=== PATIENT | female | born 1965 | race Caucasian/White ===

== ENCOUNTER 2023-09-05 08:11 | Outpatient (OUT) | payer OTHER, SELFPAY ==
--- NOTE | 2023-09-05 | NM_ITS ---
Patient Name: EMIGDIO EIL MR#: [id number] : 1965 Exam Date: 09/05/2023 Ordering Doctor: MARI LOCKWOOD RADIOLOGY REPORT PROCEDURE: NM LEN PERF SPECT REST STR COMPARISON: None. INDICATIONS: CHEST PAIN, UNSPECIFIED TECHNIQUE: Exam Description: Stress/Rest two day protocol gated SPECT Rest Imagin.9 mCi Tc-99m Cardiolite IV on 09/06/2023 Stress Imaging 26.1 mCi Tc-99m Cardiolite IV on 09/05/2023 Exercise Protocol: 0.4 mg Lexiscan given IV Heart Rate (bpm): Rest: 74 Max: 101 PMHR: 62 Blood Pressure: Rest: 114/72 Max: 130/70 Symptoms: CHEST PAIN, SHORTNESS OF BREATH Rest and peak stress ECG findings were normal and the exercise portion of the study was normal per attending physician Dr. Alba . For more details please see separate cardiac stress test report. FINDINGS: QUALITY OF STUDY: Good. PERFUSION DEFECT: None. LOCATION: N/A SIZE: N/A. SEVERITY: N/A. TYPE: N/A. WALL MOTION: Normal. LV SIZE: Normal. 57 mL. TID / TCD: None; 1.1 LVEF: Normal. Calculated EF 84%. SUMMARY: Myocardial perfusion imaging study is NORMAL. CONCLUSION: 1. Normal myocardial profusion scan. No reversible ischemia 2. Normal exercise test Dictated by: Zach Mac MD on 09/07/2023 at 07:35 Approved by: Zach Mac MD on 09/07/2023 at 07:40
--- NOTE | 2023-09-05 | PCN_ITS ---
CARDIAC STRESS TEST Requesting Physician:? Raphael Lawrence NP and Paulo Turner M.D. Procedure Date:? 09/05/2023 LEXISCAN STUDY REASON FOR EVALUATION:? Shortness of breath. Patient was unable to walk and, therefore, the treadmill test was converted to a nuclear perfusion study.? Patient was noted to have a pacemaker.? At baseline, the EKG showed sinus rhythm with normal intervals with no evidence of any pacing.? Following Lexiscan infusion, no evidence of AV block was seen.? At baseline, the resting the heart rate 77 with a blood pressure of 130/72 mm/Hg.? Following infusion, the heart rate increased to 101, with a blood pressure of 130/70 mm/Hg.? INTERPRETATION: 1.? No evidence of ischemia noted on EKG.? 2.? Symptoms of shortness of breath and chest heaviness noted during the test. 3.? Nuclear perfusion study to be interpreted separately by Radiology team. SEBLE
[2023-09-05] MEDS: REGADENOSON 0.4 MG/5 ML SYRINGE IV (09:12)
== END 2023-09-05 08:12 | disposition home or self-care (01) ==
LOC: CARD 08:12
PROVIDERS: PCP Family Medicine; Visit Provider Nurse Practitioner
DX: R07.9 Chest pain, unspecified (principal); R94.31 Abnormal electrocardiogram [ECG] [EKG]
CPT/HCPCS: 78452; 93017; A9500; J2785

== ENCOUNTER 2023-09-06 14:52 | Outpatient (OUT) | payer OTHER, SELFPAY ==
--- NOTE | 2023-09-06 15:26 | CA_ITS ---
Patient Name: EMIGDIO ELI MR#: [id number] : 1965 Exam Date: 09/06/2023 Ordering Doctor: MARI LOCKWOOD ECHOCARDIOGRAM REPORT PROCEDURE: CA ECHO DOPPLER COMPLETE INDICATIONS: CHEST PAIN COMPARISON: None. DESCRIPTION: COMPLETE ECHOCARDIOGRAM Real-time transthoracic echocardiography with 2D, M-mode, spectral and color flow Doppler performed. QUALITY: Technical quality was good. LEFT VENTRICLE: Normal chamber size. Normal left ventricular wall thickness. LV EF: Global left ventricular systolic function is normal. Calculated left ventricular ejection fraction is 62%. DIASTOLIC: Normal diastolic function. ATRIAL SEPTUM: Inadequately visualized. LEFT ATRIUM: Normal chamber size. RIGHT ATRIUM: Normal chamber size. Pacer wire present. RIGHT VENTRICLE: Normal chamber size. Normal right ventricular systolic function. Pacer wire present. TRICUSPID VALVE: Normal mobility and thickness. Mild regurgitation. Mild pulmonary hypertension. RVSP 39mmHg MITRAL VALVE: Normal mobility and thickness. No evidence of mitral valve stenosis. There is no mitral annular calcification. No mitral regurgitation. AORTIC VALVE: Normal trileaflet appearance. No visible sclerosis. Normal leaflet mobility. No evidence of aortic valve stenosis. No aortic regurgitation. AORTIC ROOT: Normal diameter and appearance. PULMONIC VALVE: Normal thickness and mobility. No stenosis. No regurgitation. PERICARDIUM: No evidence of pericardial effusion. IVC: Collapses with inspirations. Normal size. CONCLUSION: 1. Global left ventricular systolic function is normal; visually estimated ejection fraction is 60 to 65% 2. Right ventricle is normal in size and systolic function 3. Normal diastolic function 4. Mild tricuspid regurgitation 5. Mild elevated right ventricular systolic pressure; RVSP 39 mmHg Adult Echocardiography Procedure Report Left Ventricle LVEDD (3.7 - 5.6 cm): 3.51 cm LVESD (2.2 - 4.0 cm): 2.52 cm LVIVS thickness (0.6 - 1.2 cm): 0.64 cm LVPW thickness (0.5 - 1.0 cm): 0.67 cm e': 0.13 m/s E - e': 5.58 LVOT Max Gradient: 6.37 mm[Hg] LVOT Area (cm2): 1.26 m/s Peak Velocity (LVOT): 1.26 m/s Mean Velocity (LVOT): 0.83 m/s LVOT Diameter 1.82 cm Left Ventricular Ejection Fraction: 61.66 % Left Atrium LA Volume Index (2D A2C): 27.29 ml/m2 Left Atrium Systolic Dimension: 2.99 cm Mitral Valve MV E to A Ratio: 1, 0.95 Mitral Valve A-Wave Peak Velocity: 0.76 m/s Mitral Valve E-Wave Peak Velocity: 0.75 m/s Right Ventricle RV Internal Diastolic Dimension: 3.05 cm Aorta AO Root Diam: 2.54 cm Ascending Ao Diam: 2.22 cm Aortic Valve AoV Area (Peak Ganga): 1.96 cm2, 1.96 cm2 AoV Area (VTI): 1.83 cm2, 1.83 cm2 Peak Velocity(Antegrade Flow): 1.67 m/s Peak Gradient(Antegrade Flow): 11.20 mm[Hg] Mean Velocity(Antegrade Flow): 1.14 m/s Mean Gradient(Antegrade Flow): 5.98 mm[Hg] Velocity Time Integral: 34.18 cm Tricuspid Valve Peak Velocity (Regurgitant Flow): 2.88 m/s, 2.99 m/s, 2.80 m/s, 2.47 m/s Pulmonic Valve Peak Velocity: 0.89 m/s Peak Gradient: 3.42 mm[Hg], 2.91 mm[Hg] Right Atrium Right Atrium Systolic Pressure: 24.68 ml, 24.68 ml Dictated by: Conchita Cornell M.D. on 09/06/2023 at 16:35 Approved by: Conchita Cornell M.D. on 09/06/2023 at 16:37
== END 2023-09-06 14:53 | disposition home or self-care (01) ==
LOC: NM 14:52
PROVIDERS: PCP Family Medicine; Visit Provider Nurse Practitioner
DX: R07.9 Chest pain, unspecified (principal); R94.31 Abnormal electrocardiogram [ECG] [EKG]
CPT/HCPCS: 93306

== ENCOUNTER 2023-09-25 22:27 | Emergency (ER) | payer OTHER, SELFPAY ==
[2023-09-25 22:32] VITALS: BP 103/70; PULSE 82; RESP 18; TEMP 37.2; O2SAT 95; BMI 18.6
--- NOTE | 2023-09-25 23:00 | ED.GENADUL1 ---
HPI - General Adult General Chief complaint: Fever Stated complaint: Fever Stomach Ache Time Seen by Provider: 09/25/23 22:55 Source: patient Mode of arrival: walk-in Limitations: no limitations History of Present Illness HPI narrative: patient describes ulcers in her mouth for past week. states she was given some type of paste by her doctor to use. States it does help relieve the pain for about 5 minutes. limited eating and drinking because of the pain. Also watery diarrhea for a couple of days. No vomiting or fever. No abdominal pain Related Data Home Medications Medication Instructions Recorded Confirmed bupropion HCl 300 mg 24 hr tablet, 300 mg PO DAILY 09/25/23 09/25/23 extended release cholecalciferol (vitamin D3) 50 50 mcg PO DAILY 09/25/23 09/25/23 mcg (2,000 unit) capsule citalopram 20 mg tablet 20 mg PO DAILY 09/25/23 09/25/23 guaifenesin 1,200 mg tablet, 1,200 mg PO Q12H 09/25/23 09/25/23 extended release 12 hr lamotrigine 25 mg tablet 50 mg PO BEDTIME 09/25/23 09/25/23 lansoprazole 30 mg capsule,delayed 30 mg PO DAILY 09/25/23 09/25/23 release levothyroxine 125 mcg tablet 125 mcg PO DAILY 09/25/23 09/25/23 simvastatin 20 mg tablet 20 mg PO DAILY 09/25/23 09/25/23 triamcinolone acetonide 0.1 % 1 applic dental BID 09/25/23 09/25/23 dental paste Allergies Allergy/AdvReac Type Severity Reaction Status Date / Time acetaminophen [From Percocet] Allergy Mild Vomiting Verified 09/25/23 22:49 codeine Allergy Mild Vomiting Verified 09/25/23 22:49 oxycodone [From Percocet] Allergy Mild Vomiting Verified 09/25/23 22:49 promethazine Allergy Mild Agitated Verified 09/25/23 22:49 Sulfa (Sulfonamide Allergy Mild Vomiting Verified 09/25/23 22:49 Antibiotics) hydromorphone [From Dilaudid] AdvReac Mild Rash Verified 09/25/23 22:49 prochlorperazine AdvReac Mild Verified 09/25/23 22:36 [From Compazine] Review of Systems ROS Status of ROS 10 or more systems reviewed and unremarkable except as noted in history and below [facility] Social History Smoking status: Never smoker Exam Constitutional Vital Signs, click to edit/add: Last Vital Signs Temp 99.0 F 09/25/23 22:32 Pulse 82 09/25/23 22:32 Resp 18 09/25/23 22:32 BP 103/70 09/25/23 22:32 Pulse Ox 95 09/25/23 22:32 O2 Del Method Room Air 09/25/23 22:32 Common normals: no apparent distress, average body habitus, oriented x3, no limitations, healthy appearing, alert and well nourished HENSD Other: apthous ulcer on tongue Eye Common normals: EOMs intact bilaterally and conjunctivae normal Respiratory Common normals: normal respiratory effort, no retractions, no use of accessory muscles and clear to auscultation bilaterally Cardio Common normals: regular rate, regular rhythm, S1 normal heart sound and S2 normal heart sound GI Common normals: Normal to inspection, nondistended, normoactive bowel sounds present, soft to palpation and non-tender Extremity Common normals: normal to inspection and full ROM Neuro Common normals: oriented x3, CN's II-XII intact bilaterally and moves all extremities Psych Appearance: grossly normal Course Vital Signs Vital signs: Vital Signs Temperature 99.0 F 09/25/23 22:32 Pulse Rate 82 09/25/23 22:32 Respiratory Rate 18 09/25/23 22:32 Blood Pressure 103/70 09/25/23 22:32 Pulse Oximetry 95 09/25/23 22:32 Oxygen Delivery Method Room Air 09/25/23 22:32 Temperature 99.0 F 09/25/23 22:32 Pulse Rate 82 09/25/23 22:32 Respiratory Rate 18 09/25/23 22:32 Blood Pressure 103/70 09/25/23 22:32 Pulse Oximetry 95 09/25/23 22:32 Oxygen Delivery Method Room Air 09/25/23 22:32 Medical Decision Making [facility] Narrative Medical decision making narrative: patient presents complaining of ulcers in her mouth that limit her intake due to pain. Oral canal exam with few apthous ulcer lesions. No swelling. Oral canal not dry but labs with evidence of mild dehydration. IV established and patient hydrated in the department. Discharged home with acyclovir and advised to follow up with her doctor Lab Data Labs: Lab Results 09/25/23 09/26/23 Range/Units 23:22 02:20 WBC 3.4 L (4.0-11.0) 10^3/uL RBC 4.88 (4.20-5.40) 10^6/uL Hgb 13.2 (12.0-16.0) g/dL Hct 42.1 (36.0-48.0) % MCV 86.3 (81.0-99.0) fL MCH 27.0 (26.7-34.0) pg MCHC 31.4 (29.9-35.2) g/dL RDW 13.4 (11.0-15.0) % Plt Count 197 (150-450) 10^3/uL MPV 10.1 (9.5-13.5) fL Neut % (Auto) 54.1 (43.0-75.0) % Lymph % (Auto) 35.4 (20.5-60.0) % [place] % (Auto) 7.0 (1.7-12.0) % Eos % (Auto) 2.9 (0.9-7.0) % Baso % (Auto) 0.6 (0.2-2.0) % Neut # (Auto) 1.9 (1.4-6.5) 10^3/uL Lymph # (Auto) 1.2 (1.2-3.8) 10^3/uL [place] # (Auto) 0.2 L (0.3-0.8) 10^3/uL Eos # (Auto) 0.1 (0.0-0.7) 10^3/uL Baso # (Auto) 0.0 (0.0-0.1) 10^3/uL Abs Immat Gran (auto) 0.00 (0.00-0.03) 10^3/uL Imm/Tot Granulo (auto) 0.0 (0.0-0.5) % Sodium 140 (136-145) mmol/L Potassium 3.3 L (3.5-5.1) mmol/L Chloride 103 (98-107) mmol/L Carbon Dioxide 29.9 (21.0-32.0) mmol/L Anion Gap 10.4 BUN 22.0 H (7.0-18.0) mg/dL Creatinine 1.14 H (0.55-1.02) mg/dL Est GFR ( Amer) 59 L (>=60) Est GFR (Non-Af Amer) 49 L (>=60) BUN/Creatinine Ratio 19.3 Glucose 106 (74-106) mg/dL Calcium 9.3 (8.5-10.1) mg/dL Total Bilirubin 0.4 (0.2-1.0) mg/dL AST 21 (15-37) U/L ALT 20 (14-59) U/L Alkaline Phosphatase 97 (46-116) U/L Total Protein 6.8 (6.4-8.2) g/dL Albumin 3.4 (3.4-5.0) g/dL Globulin 3.4 g/dL Albumin/Globulin Ratio 1.0 Urine Color Lt. yellow (YELLOW) Urine Clarity Clear (CLEAR) Urine pH 6.0 (5.0-9.0) Ur Specific [place] 1.025 (1.005-1.025) Urine Protein Negative (NEG/TRACE) mg/dL Urine Glucose (UA) Negative (NEGATIVE) mg/dL Urine Ketones Negative (NEGATIVE) mg/dL Urine Occult Blood Negative (NEGATIVE) Urine Nitrite Negative (NEGATIVE) Urine Bilirubin Negative (NEGATIVE) Urine Urobilinogen 0.2 (0.2-1.0) EU/dL Ur Leukocyte Esterase Trace A (NEGATIVE) Urine RBC 0-2 (0-2) #/HPF Urine WBC 0-2 A (NONE SEEN) #/HPF Ur Squamous Epith Cells Rare (NONE/RARE) #/LPF Urine Crystals None seen (None Seen) #/HPF Urine Bacteria None seen (NONE SEEN) #/HPF Urine Casts None seen (NONE SEEN) #/LPF Urine Mucus None seen (NONE SEEN) Discharge Plan Discharge Chief Complaint: Fever Clinical Impression: Aphthous ulcer of mouth Patient Disposition: Home, Self-Care Prescriptions / Home Meds: No Action bupropion HCl 300 mg tablet extended release 24 hr 300 mg PO DAILY cholecalciferol (vitamin D3) 50 mcg (2,000 unit) capsule 50 mcg PO DAILY citalopram 20 mg tablet 20 mg PO DAILY guaifenesin 1,200 mg tablet extended release 12hr 1,200 mg PO Q12H Rx Instructions: for 15 days lamotrigine 25 mg tablet 50 mg PO BEDTIME lansoprazole 30 mg capsule,delayed release(DR/EC) 30 mg PO DAILY levothyroxine 125 mcg tablet 125 mcg PO DAILY simvastatin 20 mg tablet 20 mg PO DAILY triamcinolone acetonide 0.1 % paste 1 applic dental BID Instructions: Oral Mucositis (ED) Additional Instructions: follow up with your doctor in 2-3 days. Stand Alone Forms: Portal Instructions Referrals: Paulo Turner MD [Primary Care Provider] - 1 week Discharge Date/Time: 09/26/23 03:11
[2023-09-25 23:45] LABS: Basophils Percent Auto 0.6 % (0.2-2.0); Eosinophils Absolute Auto 0.1 10^3/uL (0.0-0.7); Eosinophils Percent Auto 2.9 % (0.9-7.0); Hematocrit 42.1 % (36.0-48.0); Hemoglobin 13.2 g/dL (12.0-16.0); Lymphocytes Absolute Auto 1.2 10^3/uL (1.2-3.8); Lymphocytes Percent Auto 35.4 % (20.5-60.0); Mean Corpuscular HGB Conc 31.4 g/dL (29.9-35.2); Mean Corpuscular Volume 86.3 fL (81.0-99.0); Mean Platelet Volume 10.1 fL (9.5-13.5); Monocytes Absolute Auto 0.2 10^3/uL (0.3-0.8); Neutrophils Absolute Auto 1.9 10^3/uL (1.4-6.5); Neutrophils Percent Auto 54.1 % (43.0-75.0); Platelet Count 197 10^3/uL (150-450); Red Blood Count 4.88 10^6/uL (4.20-5.40); Red Cell Distribution Width 13.4 % (11.0-15.0); White Blood Count 3.4 10^3/uL (4.0-11.0)
--- NOTE | 2023-09-25 23:50 | PC.NURSE ---
sores in mouth and on tongue. Pt was seen by PCP and given oral paste/ medication, she says it has gotten worse since she started the treatment and she has not been able to eat or drink with the sores.
[2023-09-25 23:56] LABS: Alanine Aminotransferase 20 U/L (14-59); Albumin Level 3.4 g/dL (3.4-5.0); Alkaline Phosphatase 97 U/L (46-116); Anion Gap 10.4; Aspartate Amino Transferase 21 U/L (15-37); BUN Creatinine Ratio 19.3; Bilirubin Total 0.4 mg/dL (0.2-1.0); Calcium 9.3 mg/dL (8.5-10.1); Carbon Dioxide 29.9 mmol/L (21.0-32.0); Chloride 103 mmol/L (98-107); Estimated GFR (African America 59 (>=60); Estimated GFR (Non-African Ame 49 (>=60); Globulin 3.4 g/dL; Glucose 106 mg/dL (74-106); Potassium 3.3 mmol/L (3.5-5.1); Sodium 140 mmol/L (136-145); Total Protein 6.8 g/dL (6.4-8.2)
[2023-09-26] MEDS: 0.9 % SODIUM CHLORIDE 1,000 ML 999 ML IV (00:56)
[2023-09-26 02:29] LABS: Bilirubin Urine NEGATIVE (NEGATIVE); Blood Urine NEGATIVE (NEGATIVE); Clarity Urine CLEAR (CLEAR); Color Urine LT. YELLOW (YELLOW); Glucose Urine UA NEGATIVE (NEGATIVE); Ketones Urine NEGATIVE (NEGATIVE); Leukocyte Esterase Urine TRACE (NEGATIVE); Nitrite Urine NEGATIVE (NEGATIVE); Protein Urine NEGATIVE (NEG/TRACE); Specific Gravity Urine 1.025 (1.005-1.025); Urobilinogen Urine 0.2 EU/dL (0.2-1.0)
[2023-09-26 02:46] LABS: Bacteria Urine NONE SEEN #/HPF (NONE SEEN); Crystals Seen? None Seen #/HPF (None Seen); Mucus Urine NONE SEEN (NONE SEEN); RBC Urine 0-2 #/HPF (0-2); Squamous Epithelial Cell Urine RARE #/LPF (NONE/RARE); Urine Microscopic Indicated YES; WBC Urine 0-2 #/HPF (NONE SEEN)
[2023-09-26 02:47] LABS: Cast Seen? NONE SEEN #/LPF (NONE SEEN)
== END 2023-09-26 03:11 | disposition home or self-care (01) ==
PROVIDERS: Emergency Provider Internal Medicine; PCP Family Medicine
DX: K12.0 Recurrent oral aphthae (principal); E86.0 Dehydration; Z79.899 Other long term (current) drug therapy
CPT/HCPCS: 36415; 80053; 81001; 85025; 96360; 99284

== ENCOUNTER 2023-12-22 17:19 | Inpatient (IN) | payer OTHER, SELFPAY ==
[2023-12-22] VITALS (8 sets, daily range): BP systolic 98–137; BP diastolic 64–82; PULSE 70–83; RESP 18; TEMP 36.1–36.4; O2SAT 85–100; BMI 22.1; BMI 20.3
--- NOTE | 2023-12-22 17:31 | ECG_ITS ---
[facility] Test Date: 2023-12-22 Pat Name: EMIGDIO ELI Department: Room: 2011 Gender: Female Charge Entry: : 1965 Requested By: Ruben Browne Order Number: [id number] Reading MD: DARVIN DERAS Measurements Intervals [place] Rate: 71 P: 90 MO: 200 QRS: 100 QRSD: 82 T: 56 QT: 394 QTc: 416 Interpretive Statements 90580 Electronic atrial pacemaker 7102 Moderate right axis deviation 9120 atypical ECG Electronically Signed On 12-24-2023 7:25:07 EDT by DARVIN DERAS
--- NOTE | 2023-12-22 17:33 | ED_ITS ---
Documented by User: Ruben Browne 12/23/23 18:34 HPI - General Adult General Chief complaint: Abdominal Pain Stated complaint: DIZZINESS Time Seen by Provider: 12/22/23 17:23 Source: patient Mode of arrival: ambulance Limitations: no limitations History of Present Illness HPI narrative: The patient suddenly developed dizziness, nausea and vomiting about 2 hours ago. She denied any associated headache, visual change or ringing in the ears. No recent fall and injury to the head or neck. She denies any associated abdominal pain and denies any recent urinary symptoms. She is uncertain about potential ill exposures. EMS give the patient IV Zofran and started normal saline IV fluid on the way to the emergency department. Related Data Home Medications ?Medication ?Instructions ?Recorded ?Confirmed bupropion HCl 300 mg 24 hr tablet, 300 mg PO DAILY 09/25/23 12/22/23 extended release cholecalciferol (vitamin D3) 50 50 mcg PO DAILY 09/25/23 12/22/23 mcg (2,000 unit) capsule citalopram 20 mg tablet 20 mg PO DAILY 09/25/23 12/22/23 lamotrigine 25 mg tablet 50 mg PO BEDTIME 09/25/23 12/22/23 lansoprazole 30 mg capsule,delayed 30 mg PO DAILY 09/25/23 12/22/23 release levothyroxine 125 mcg tablet 125 mcg PO DAILY 09/25/23 12/22/23 simvastatin 20 mg tablet 20 mg PO DAILY 09/25/23 12/22/23 triamcinolone acetonide 0.1 % 1 applic dental BID 09/25/23 12/22/23 dental paste docusate sodium 100 mg capsule 100 mg PO PRN 12/22/23 12/22/23 ([facility]) loratadine 10 mg tablet (Allergy 10 mg PO DAILY 12/22/23 12/22/23 Relief (loratadine)) Allergies Allergy/AdvReac Type Severity Reaction Status Date / Time acetaminophen [From Percocet] Allergy Mild Vomiting Verified 12/22/23 17:31 codeine Allergy Mild Vomiting Verified 12/22/23 17:31 oxycodone [From Percocet] Allergy Mild Vomiting Verified 12/22/23 17:31 promethazine Allergy Mild Agitated Verified 12/22/23 17:31 Sulfa (Sulfonamide Allergy Mild Vomiting Verified 03/22/24 17:31 Antibiotics) hydromorphone [From Dilaudid] AdvReac Mild Rash Verified 12/22/23 17:31 prochlorperazine AdvReac Mild Verified 12/22/23 17:31 [From Compazine] [facility] Medical History (Updated 12/23/23 @ 15:14 by Galilea Danielle DO) Pulmonary hypertension ?I27.20 - Pulmonary hypertension, unspecified (ICD-10) Cholecystitis ?K81.9 - Cholecystitis, unspecified (ICD-10) Depression ?F32.A - Depression, unspecified (ICD-10) On home O2 ?Z99.81 - Dependence on supplemental oxygen (ICD-10) Hyperthyroidism ?E05.90 - Thyrotoxicosis, unspecified without thyrotoxic crisis or storm (ICD-10) Scoliosis ?M41.9 - Scoliosis, unspecified (ICD-10) Emphysema lung ?J43.9 - Emphysema, unspecified (ICD-10) Nausea & vomiting ?R11.2 - Nausea with vomiting, unspecified (ICD-10) Pacemaker ?Z95.0 - Presence of cardiac pacemaker (ICD-10) COPD (chronic obstructive pulmonary disease) ?J44.9 - Chronic obstructive pulmonary disease, unspecified (ICD-10) Surgical History History of tonsillectomy ?Z90.89 - Acquired absence of other organs (ICD-10) H/O right wrist surgery ?Z98.890 - Other specified postprocedural states (ICD-10) H/O colectomy ?Z90.49 - Acquired absence of other specified parts of digestive tract (ICD- 10) Family History Mother Family history of COPD (chronic obstructive pulmonary disease) Grandmother Family history of cancer Sister Family history of diabetes mellitus Father Family history of myocardial infarction Social History Within the past year, how often did you have a drink containing alcohol: never Within the past year, how often did you have six or more drinks on one occasion: never Score interpretation: A score less than 3 is consistent with normal alcohol consumption. 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 Known occupational exposures/hazards: No Highest level of school completed/degree received: 10th grade Do you want help with school or training: No Are you now , , , , never or living with a partner: In a typical week, how many times do you talk on the telephone with family, friends, or neighbors: 3 or more times per week How often do you get together with friends or relatives: 3 or more times per week How often do you attend sikhism or shinto services: 4 or more times per year Do you belong to any clubs or organizations such as sikhism groups unions, fraternal or athletic groups, or school groups: yes Total score: 3 Score interpretation: A score of greater than or equal to 2 indicates the lowest level of social isolation. Little interest or pleasure in doing things: not at all Feeling down, depressed, or hopeless: not at all Feel stressed/tense/nervous/anxious/difficulty sleeping: to some extent Life stressors: unknown source of stress Due to disability, difficulty making decisions: No Do you think of yourself as: straight/heterosexual Gender Identity: female Exam Narrative Exam Narrative: Nurses notes and vital signs reviewed and patient is not hypoxic. Afebrile General: ill-appearing and uncomfortable. Skin: Warm, dry, no pallor noted. No rash to abdomen or flank. Head: Normocephalic, atraumatic. Neck: Supple, non-tender. No meningismus Eye: Pupils are equal, round and EOMI. No scleral icterus. No nystagmus Ears, Nose, Mouth, and Throat: Oral mucosa is moist Cardiovascular: Regular Rate and Rhythm without murmur, gallop or rub. Respiratory: No accessory muscle use or respiratory distress. Lungs are clear to auscultation, no wheezing, rales or rhonchi Back: No CVA tenderness Musculoskeletal: normal ROM, no calf or popliteal tenderness, no lower extremity edema/swelling GI: Abdomen is soft, non-distended. Normal bowel sounds. No tenderness to palpation. No rebound, guarding, or rigidity noted. Neurological: A&O x4. No cranial nerve dysfunction observed. No truncal ataxia. Moves all extremities. Sensation intact. Psychiatric: Cooperative and interactive. Normal mood and affect. Constitutional Vital Signs, click to edit/add: Last Vital Signs Temp 97.7 F 12/23/23 17:58 Pulse 72 12/23/23 17:58 Resp 18 12/23/23 17:58 BP 101/64 12/23/23 17:58 Pulse Ox 91 L 12/23/23 17:58 O2 Del Method Nasal Cannula 12/23/23 17:58 O2 Flow Rate 2 12/23/23 17:58 Course Vital Signs Vital signs: Vital Signs Temperature 97 F L 12/22/23 17:26 Pulse Rate 73 12/22/23 17:26 Respiratory Rate 18 12/22/23 17:26 Blood Pressure 137/73 12/22/23 17:26 Pulse Oximetry 100 12/22/23 17:26 Oxygen Delivery Method Room Air 12/22/23 17:26 Temperature 97.7 F 12/23/23 17:58 Pulse Rate 72 12/23/23 17:58 Respiratory Rate 18 12/23/23 17:58 Blood Pressure 101/64 12/23/23 17:58 Pulse Oximetry 91 L 12/23/23 17:58 Oxygen Delivery Method Nasal Cannula 12/23/23 17:58 Oxygen Delivery Flow Rate 2 12/23/23 17:58 Medical Decision Making MDM Narrative Medical decision making narrative: 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 Blood drawn and sent for evaluation. Urine also ordered to be obtained and sent for testing. She was ordered to receive IV Reglan. She already has normal saline IV fluid running from EMS. Patient continues to complain of nausea/vomiting and passed stool shortly after arrival to our ED. Patient ordered to get CT abd/pelvis with IVC. CBC normal. CMP unremarkable. CT a/p is pending. Patient signed out to Dr Ralph to review the CT scan and determine appropriate disposition. Lab Data Lab results reviewed: Yes I reviewed the patient's lab results Labs: Lab Results 12/22/23 12/22/23 12/22/23 Range/Units 17:32 17:40 18:18 WBC 6.9 (4.0-11.0) 10^3/uL RBC 5.16 (4.20-5.40) 10^6/uL Hgb 14.5 (12.0-16.0) g/dL Hct 46.2 (36.0-48.0) % MCV 89.5 (81.0-99.0) fL MCH 28.1 (26.7-34.0) pg MCHC 31.4 (29.9-35.2) g/dL RDW 13.7 (11.0-15.0) % Plt Count 214 (150-450) 10^3/uL MPV 9.4 L (9.5-13.5) fL Neut % (Auto) 59.1 (43.0-75.0) % Lymph % (Auto) 31.7 (20.5-60.0) % [place] % (Auto) 5.2 (1.7-12.0) % Eos % (Auto) 3.0 (0.9-7.0) % Baso % (Auto) 0.4 (0.2-2.0) % Neut # (Auto) 4.1 (1.4-6.5) 10^3/uL Lymph # (Auto) 2.2 (1.2-3.8) 10^3/uL [place] # (Auto) 0.4 (0.3-0.8) 10^3/uL Eos # (Auto) 0.2 (0.0-0.7) 10^3/uL Baso # (Auto) 0.0 (0.0-0.1) 10^3/uL Abs Immat Gran (auto) 0.04 H (0.00-0.03) 10^3/uL Imm/Tot Granulo (auto) 0.6 H (0.0-0.5) % Sodium 139 (136-145) mmol/L Potassium 3.3 L (3.5-5.1) mmol/L Chloride 103 (98-107) mmol/L Carbon Dioxide 28.2 (21.0-32.0) mmol/L Anion Gap 11.1 BUN 15.0 (7.0-18.0) mg/dL Creatinine 1.02 (0.55-1.02) mg/dL Est GFR ( Amer) >60 (>=60) Est GFR (Non-Af Amer) 55 L (>=60) BUN/Creatinine Ratio 14.7 Glucose 134 H (74-106) mg/dL Calcium 9.1 (8.5-10.1) mg/dL Total Bilirubin 0.3 (0.2-1.0) mg/dL AST 26 (15-37) U/L ALT 30 (14-59) U/L Alkaline Phosphatase 119 H (46-116) U/L Total Protein 7.5 (6.4-8.2) g/dL Albumin 3.9 (3.4-5.0) g/dL Globulin 3.6 g/dL Albumin/Globulin Ratio 1.1 Stl C. cayetanensis PCR Not detected (NOT DETECTE) Stool Rotavirus (PCR) Not detected (NOT DETECTE) Stool Adenovirus (PCR) Not detected (NOT DETECTE) Stool Astrovirus (PCR) Not detected (NOT DETECTE) Stool Campylobacter PCR Not detected (NOT DETECTE) Stool Cryptosporidium PCR Not detected (NOT DETECTE) St Sh/Enteroin Ecoli PCR Not detected (NOT DETECTE) Stl Enterotoxigenic E PCR Not detected (NOT DETECTE) Stool EPEC (PCR) Not detected (NOT DETECTE) Stl E. histolytica PCR Not detected (NOT DETECTE) Stool Giardia Lamblia PCR Not detected (NOT DETECTE) Stl P. shigelloides PCR Not detected (NOT DETECTE) Stool Salmonella PCR Not detected (NOT DETECTE) Stool Sapovirus (PCR) Not detected (NOT DETECTE) Stl Shiga-like Tx 1 PCR Not detected (NOT DETECTE) St Y.enterocolitica PCR Not detected (NOT DETECTE) Stl Vibrio cholerae PCR Not detected (NOT DETECTE) Stl Enteroaggr Ecoli PCR Not detected (NOT DETECTE) Stl Norovirus GI/GII PCR Not detected (NOT DETECTE) Specimen Source Stool C. difficile Toxin A&B Not detected (NOT DETECTE) Vibrio Culture Not detected (NOT DETECTE) POC Glucose 149 H (74-106) mg/dL Imaging Data CT scan - abdomen: Radiologist's impression: ITS Impressions Abdomen/Pelvis CT 12/22/23 18:42 IMPRESSION: 1. Mild/moderate acute uncomplicated pancolitis. 2. Mildly worsening biliary ductal dilatation which could be within normal limits given the patient's age and postcholecystectomy versus distal biliary obstruction. Recommend correlation with serum bilirubin. 3. Small hiatal hernia with wall thickening of the distal esophagus likely representing esophagitis. Electronically authenticated by: HAI ABARCA Date: 12/22/2023 19:26 ECG Data Attestation: I personally reviewed and interpreted this ECG as follows: Interpretation: EKG interpretation: Emergency Department physician interpretation. Electronic atrial pacemaker at 71bpm. Moderate right axis deviation, normal intervals and no ST segment elevation or depression. Discharge Plan Discharge Chief Complaint: Abdominal Pain Clinical Impression: Pancolitis Patient Disposition: Admitted As Inpatient Time of Disposition Decision: 19:54 Condition: Good Discharge Date/Time: 12/22/23 20:36 Documented by User: Reed Ralph MD 12/22/23 19:56 HPI - General Adult General Chief complaint: Abdominal Pain Stated complaint: DIZZINESS Time Seen by Provider: 12/22/23 17:23 Related Data Home Medications ?Medication ?Instructions ?Recorded ?Confirmed bupropion HCl 300 mg 24 hr tablet, 300 mg PO DAILY 09/25/23 12/22/23 extended release cholecalciferol (vitamin D3) 50 50 mcg PO DAILY 09/25/23 12/22/23 mcg (2,000 unit) capsule citalopram 20 mg tablet 20 mg PO DAILY 09/25/23 12/22/23 lamotrigine 25 mg tablet 50 mg PO BEDTIME 09/25/23 12/22/23 lansoprazole 30 mg capsule,delayed 30 mg PO DAILY 09/25/23 12/22/23 release levothyroxine 125 mcg tablet 125 mcg PO DAILY 09/25/23 12/22/23 simvastatin 20 mg tablet 20 mg PO DAILY 09/25/23 12/22/23 triamcinolone acetonide 0.1 % 1 applic dental BID 09/25/23 12/22/23 dental paste docusate sodium 100 mg capsule 100 mg PO PRN 12/22/23 12/22/23 ([facility]) loratadine 10 mg tablet (Allergy 10 mg PO DAILY 12/22/23 12/22/23 Relief (loratadine)) Allergies Allergy/AdvReac Type Severity Reaction Status Date / Time acetaminophen [From Percocet] Allergy Mild Vomiting Verified 12/22/23 17:31 codeine Allergy Mild Vomiting Verified 12/22/23 17:31 oxycodone [From Percocet] Allergy Mild Vomiting Verified 12/22/23 17:31 promethazine Allergy Mild Agitated Verified 12/22/23 17:31 Sulfa (Sulfonamide Allergy Mild Vomiting Verified 12/22/23 17:31 Antibiotics) hydromorphone [From Dilaudid] AdvReac Mild Rash Verified 12/22/23 17:31 prochlorperazine AdvReac Mild Verified 12/22/23 17:31 [From Compazine] [facility] Medical History (Updated 12/23/23 @ 15:14 by Galilea Danielle DO) Pulmonary hypertension ?I27.20 - Pulmonary hypertension, unspecified (ICD-10) Cholecystitis ?K81.9 - Cholecystitis, unspecified (ICD-10) Depression ?F32.A - Depression, unspecified (ICD-10) On home O2 ?Z99.81 - Dependence on supplemental oxygen (ICD-10) Hyperthyroidism ?E05.90 - Thyrotoxicosis, unspecified without thyrotoxic crisis or storm (ICD-10) Scoliosis ?M41.9 - Scoliosis, unspecified (ICD-10) Emphysema lung ?J43.9 - Emphysema, unspecified (ICD-10) Nausea & vomiting ?R11.2 - Nausea with vomiting, unspecified (ICD-10) Pacemaker ?Z95.0 - Presence of cardiac pacemaker (ICD-10) COPD (chronic obstructive pulmonary disease) ?J44.9 - Chronic obstructive pulmonary disease, unspecified (ICD-10) Surgical History History of tonsillectomy ?Z90.89 - Acquired absence of other organs (ICD-10) H/O right wrist surgery ?Z98.890 - Other specified postprocedural states (ICD-10) H/O colectomy ?Z90.49 - Acquired absence of other specified parts of digestive tract (ICD- 10) Family History Mother Family history of COPD (chronic obstructive pulmonary disease) Grandmother Family history of cancer Sister Family history of diabetes mellitus Father Family history of myocardial infarction Social History Within the past year, how often did you have a drink containing alcohol: never Within the past year, how often did you have six or more drinks on one occasion: never Score interpretation: A score less than 3 is consistent with normal alcohol consumption. 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 Known occupational exposures/hazards: No Highest level of school completed/degree received: 10th grade Do you want help with school or training: No Are you now , , , , never or living with a partner: In a typical week, how many times do you talk on the telephone with family, friends, or neighbors: 3 or more times per week How often do you get together with friends or relatives: 3 or more times per week How often do you attend sikhism or shinto services: 4 or more times per year Do you belong to any clubs or organizations such as sikhism groups unions, [employer] [place] or athletic groups, or school groups: yes Total score: 3 Score interpretation: A score of greater than or equal to 2 indicates the lowest level of social isolation. Little interest or pleasure in doing things: not at all Feeling down, depressed, or hopeless: not at all Feel stressed/tense/nervous/anxious/difficulty sleeping: to some extent Life stressors: unknown source of stress Due to disability, difficulty making decisions: No Do you think of yourself as: straight/heterosexual Gender Identity: female Exam Constitutional Vital Signs, click to edit/add: Last Vital Signs Temp 97.7 F 12/23/23 17:58 Pulse 72 12/23/23 17:58 Resp 18 12/23/23 17:58 BP 101/64 12/23/23 17:58 Pulse Ox 91 L 12/23/23 17:58 O2 Del Method Nasal Cannula 12/23/23 17:58 O2 Flow Rate 2 12/23/23 17:58 Course Vital Signs Vital signs: Vital Signs Temperature 97 F L 12/22/23 17:26 Pulse Rate 73 12/22/23 17:26 Respiratory Rate 18 12/22/23 17:26 Blood Pressure 137/73 12/22/23 17:26 Pulse Oximetry 100 12/22/23 17:26 Oxygen Delivery Method Room Air 12/22/23 17:26 Temperature 97.7 F 12/23/23 17:58 Pulse Rate 72 12/23/23 17:58 Respiratory Rate 18 12/23/23 17:58 Blood Pressure 101/64 12/23/23 17:58 Pulse Oximetry 91 L 12/23/23 17:58 Oxygen Delivery Method Nasal Cannula 12/23/23 17:58 Oxygen Delivery Flow Rate 2 12/23/23 17:58 Medical Decision Making MDM Narrative Medical decision making narrative: 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 Blood drawn and sent for evaluation. Urine also ordered to be obtained and sent for testing. She was ordered to receive IV Reglan. She already has normal saline IV fluid running from EMS. Patient continues to complain of nausea/vomiting and passed stool shortly after arrival to our ED. Patient ordered to get CT abd/pelvis with IVC. CBC normal. CMP unremarkable. CT a/p is pending. Patient signed out to Dr Ralph to review the CT scan and determine appropriate disposition. JK 8:00pm CT scan shows pancolitis. Stool was ordered for culture and she was given IV Cipro and Flagyl and she is being admitted. Findings are discussed with the patient and her family. Differential Diagnosis Differential Diagnosis: Colitis, gastroenteritis, diverticulitis Lab Data Lab results reviewed: Yes I reviewed the patient's lab results Labs: Lab Results 12/22/23 12/22/23 12/22/23 Range/Units 17:32 17:40 18:18 WBC 6.9 (4.0-11.0) 10^3/uL RBC 5.16 (4.20-5.40) 10^6/uL Hgb 14.5 (12.0-16.0) g/dL Hct 46.2 (36.0-48.0) % MCV 89.5 (81.0-99.0) fL MCH 28.1 (26.7-34.0) pg MCHC 31.4 (29.9-35.2) g/dL RDW 13.7 (11.0-15.0) % Plt Count 214 (150-450) 10^3/uL MPV 9.4 L (9.5-13.5) fL Neut % (Auto) 59.1 (43.0-75.0) % Lymph % (Auto) 31.7 (20.5-60.0) % [place] % (Auto) 5.2 (1.7-12.0) % Eos % (Auto) 3.0 (0.9-7.0) % Baso % (Auto) 0.4 (0.2-2.0) % Neut # (Auto) 4.1 (1.4-6.5) 10^3/uL Lymph # (Auto) 2.2 (1.2-3.8) 10^3/uL [place] # (Auto) 0.4 (0.3-0.8) 10^3/uL Eos # (Auto) 0.2 (0.0-0.7) 10^3/uL Baso # (Auto) 0.0 (0.0-0.1) 10^3/uL Abs Immat Gran (auto) 0.04 H (0.00-0.03) 10^3/uL Imm/Tot Granulo (auto) 0.6 H (0.0-0.5) % Sodium 139 (136-145) mmol/L Potassium 3.3 L (3.5-5.1) mmol/L Chloride 103 (98-107) mmol/L Carbon Dioxide 28.2 (21.0-32.0) mmol/L Anion Gap 11.1 BUN 15.0 (7.0-18.0) mg/dL Creatinine 1.02 (0.55-1.02) mg/dL Est GFR ( Amer) >60 (>=60) Est GFR (Non-Af Amer) 55 L (>=60) BUN/Creatinine Ratio 14.7 Glucose 134 H (74-106) mg/dL Calcium 9.1 (8.5-10.1) mg/dL Total Bilirubin 0.3 (0.2-1.0) mg/dL AST 26 (15-37) U/L ALT 30 (14-59) U/L Alkaline Phosphatase 119 H (46-116) U/L Total Protein 7.5 (6.4-8.2) g/dL Albumin 3.9 (3.4-5.0) g/dL Globulin 3.6 g/dL Albumin/Globulin Ratio 1.1 Stl C. cayetanensis PCR Not detected (NOT DETECTE) Stool Rotavirus (PCR) Not detected (NOT DETECTE) Stool Adenovirus (PCR) Not detected (NOT DETECTE) Stool Astrovirus (PCR) Not detected (NOT DETECTE) Stool Campylobacter PCR Not detected (NOT DETECTE) Stool Cryptosporidium PCR Not detected (NOT DETECTE) St Sh/Enteroin Ecoli PCR Not detected (NOT DETECTE) Stl Enterotoxigenic E PCR Not detected (NOT DETECTE) Stool EPEC (PCR) Not detected (NOT DETECTE) Stl E. histolytica PCR Not detected (NOT DETECTE) Stool Giardia Lamblia PCR Not detected (NOT DETECTE) Stl P. shigelloides PCR Not detected (NOT DETECTE) Stool Salmonella PCR Not detected (NOT DETECTE) Stool Sapovirus (PCR) Not detected (NOT DETECTE) Stl Shiga-like Tx 1 PCR Not detected (NOT DETECTE) St Y.enterocolitica PCR Not detected (NOT DETECTE) Stl Vibrio cholerae PCR Not detected (NOT DETECTE) Stl Enteroaggr Ecoli PCR Not detected (NOT DETECTE) Stl Norovirus GI/GII PCR Not detected (NOT DETECTE) Specimen Source Stool C. difficile Toxin A&B Not detected (NOT DETECTE) Vibrio Culture Not detected (NOT DETECTE) POC Glucose 149 H (74-106) mg/dL Imaging Data CT scan - abdomen: Radiologist's impression: ITS Impressions Abdomen/Pelvis CT 12/22/23 18:42 IMPRESSION: 1. Mild/moderate acute uncomplicated pancolitis. 2. Mildly worsening biliary ductal dilatation which could be within normal limits given the patient's age and postcholecystectomy versus distal biliary obstruction. Recommend correlation with serum bilirubin. 3. Small hiatal hernia with wall thickening of the distal esophagus likely representing esophagitis. Electronically authenticated by: HAI ABARCA Date: 12/22/2023 19:26 Discharge Plan Discharge Chief Complaint: Abdominal Pain Clinical Impression: Pancolitis Patient Disposition: Admitted As Inpatient Time of Disposition Decision: 19:54 Condition: Good Discharge Date/Time: 12/22/23 20:36
[2023-12-22 17:40] LABS: Glucometer 149 mg/dL (74-106)
--- OUTSIDE RECORDS SUMMARY | 2023-12-22 17:49 | XMS_ITS | CCD ---
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 [address]Dr. Shahbaz Juan F CBC AUTO DIFFon 01-06-2023 BASO # 0.0 103/ul Normal 0.0-0.1 [facility] Comment on above: Performed By: #### C BC ####[facility] Ohsduxjtsm[address] [place], [place] [address]Dr. Shahbaz Rogel Basophils/100 WBC (Bld) 0.0 % Critically low 0.2-2.0 [facility] Comment on above: Performed By: #### C BC ####[facility] Xatmxesowc[address] [place], [place] [address]Dr. Lilajarrod Rogel EO # 0.0 103/ul Normal 0.0-0.7 [facility] Comment on above: Performed By: #### C BC ####[facility] Zvdxejmkgz[address] [place], [place] [address]Dr. Shahbaz Rogel Eosinophils/100 WBC (Bld) 0.0 % Critically low 0.9-7.0 [facility] Comment on above: Performed By: #### C BC ####[facility] [address]oznbyre[address] [place] [address]Dr. Shahbaz Rogel Erythrocyte distribution width (RBC) [Ratio] 13.8 % Normal 11.0-15.0 [facility] Comment on above: Performed By: #### C BC ####[facility] Jmwrnjixmf[address] [place], [place] [address]Dr. Shahbaz Rogel Hematocrit (Bld) [Volume fraction] 36.9 % Normal 36.0-48.0 [facility] Comment on above: Performed By: #### C BC ####[facility] Iwtpsbiwhj[address] [place], [place] [address]Dr. Shahbaz Rogel Hemoglobin (Bld) [Mass/Vol] 11.8 g/dL Critically low 12.0-16.0 [facility] Comment on above: Performed By: #### C BC ####[facility] Z[address]owdzbvc[address] [place], [place] [address]Dr. Shahbaz Rogel IG # 0.04 10e3/ul Critically high 0.00-0.03 [facility] Comment on above: Performed By: #### C BC ####[facility] Butwswiouk[address] [place], [place] [address]Dr. Shahbaz Rogel IG % 1.1 % Critically high 0.0-0.5 [facility] Comment on above: Performed By: #### C BC ####[facility] Okqdksshdi[address] [place], [place] [address]Dr. Shahbaz Rogel LYMPH # 0.5 103/ul Critically low 1.2-3.8 [facility] Comment on above: Performed By: #### C BC ####[facility] Bkyyuuotqj[address] [place], [place] [address]Dr. Shahbaz Rogel Lymphocytes/100 WBC (Bld) 13.9 % Critically low 20.5-60.0 [facility] Comment on above: Performed By: #### C BC ####[facility] Jtnlhcebxg[address] [place], [place] [address]Dr. Shahbaz Rogel MANUAL DIFF REQ NO Normal [facility] Comment on above: Performed By: #### C BC ####[facility] Fmvhblvwlx57[address] [place] [phone]. Shahbaz Rogel MCH (RBC) [Entitic mass] 27.8 pg Normal 26.7-34.0 [facility] Comment on above: Performed By: #### C BC ####[facility] V[address]thforop[address] [place] [address]Dr. Shahbaz Rogel MCHC (RBC) [Mass/Vol] 32.0 g/dL Normal 29.9-35.2 [facility] Comment on above: Performed By: #### C BC ####[facility] Nvvxuvkfmy87[address] [place] [address]Dr. Shahbaz Juan F MCV (RBC) [Entitic vol] 86.8 fL Normal 81.0-99.0 [facility] Comment on above: Performed By: #### C BC ####[facility] Crvwfplwfz[address] [place], [place] [address]Dr. Shahbaz Rogel MONO # 0.1 103/ul Critically low 0.3-0.8 [facility] Comment on above: Performed By: #### C BC ####[facility] Zoopfqhzyj[address] [place], [place] [address]Dr. Lilajarrod Rogel Monocytes/100 WBC (Bld) 3.7 % Normal 1.7-12.0 [facility] Comment on above: Performed By: #### C BC ####[facility] Ghryqjilru[address] [place], [place] [address]Dr. Shahbaz Juan F NEUT # 3.1 103/ul Normal 1.4-6.5 [facility] Comment on above: Performed By: #### C BC ####[facility] Pfefcniiqk[address] [place], [place] [address]DrChen Lilajarrod Rogel Neutrophils/100 WBC (Bld) 81.3 % Critically high 43.0-75.0 [facility] Comment on above: Performed By: #### C BC ####[facility] L[address]pexjyyli[address] [place], [place] [address]DrChen Lilajarrod Rogel Platelet mean volume (Bld) [Entitic vol] 9.8 fL Normal 9.5-13.5 [facility] Comment on above: Performed By: #### C BC ####[facility] Braebxzejp[address] [place] [address]Dr. Shahbaz Rogel PLT 184 103/ul Normal 150-450 [facility] Comment on above: Performed By: #### C BC ####[facility] Lwdkovslhr4935 [place] [phone]. Shahbaz Rogel RBC 4.25 106/ul Normal 4.20-5.40 [facility] Comment on above: Performed By: #### C BC ####[facility] Rkaslyrnzn2616 [place] [phone]. Shahbaz Roegl WBC 3.8 103/ul Critically low 4.0-11.0 [facility] Comment on above: Performed By: #### C BC ####[facility] Vwctccwcqv6757 [place] [address]Dr. Shahbaz Rogel PROF CHEM 8 (BAS METB)on Anion gap [Moles/Vol] 9.2 mmol/L Normal [facility] Comment on above: Performed By: #### B MP ####[facility] Eblynmcppc1803[address] [place], [place] [address]Dr. Shahbaz Rogel Calcium [Mass/Vol] 8.6 mg/dL Normal 8.5-10.1 [facility] Comment on above: Performed By: #### B MP ####[facility] Tdbdwhxgdg315[address] [place], [place] [address]Dr. Shahbaz Rogel Chloride [Moles/Vol] 107 mmol/L Normal 98-107 [facility] Comment on above: Performed By: #### B MP ####[facility] Pifpmfxtqd8136 [place] [phone]. Shahbaz Rogel CO2 [Moles/Vol] 29.3 mmol/L Normal 21.0-32.0 [facility] Comment on above: Performed By: #### B MP ####[facility] Twusxzgzpt636[address] [place], [place] [address]Dr. Shahbaz Rogel Creatinine [Mass/Vol] 0.79 mg/dL Normal 0.55-1.02 [facility] Comment on above: Performed By: #### B MP ####[facility] Fnxnththcn23[address] [place] [address]Dr. Shahbaz Rogel EGFR-AF ZAMBIAN >60 Normal >=60 [facility] Comment on above: Performed By: #### B MP ####[facility] Usnyuitlku0057 [place] [address]Dr. Shahbaz Rogel EGFR-NON AF ZAMBIAN >60 Normal >=60 [facility] Comment on above: Performed By: #### B MP ####[facility] Hadtbdkgzq4418 [place] [address]Dr. Lilajarrod Rogel Glucose [Mass/Vol] 159 mg/dL Critically high 74-106 [facility] Comment on above: Performed By: #### B MP ####[facility] Ybczcgtqsq424[address] [place], [place] [address]Dr. Shahbaz Rogel Potassium [Moles/Vol] 3.5 mmol/L Normal 3.5-5.1 [facility] Comment on above: Performed By: #### B MP ####[facility] Muyelyllgx[address] [place], [place] [address]Dr. Lilajarrod Juan F Sodium [Moles/Vol] 142 mmol/L Normal 136-145 [facility] Comment on above: Performed By: #### B MP ####[facility] Vxvvabsram[address] [place], [place] [address]Dr. Lilajarrod Juan F Urea nitrogen [Mass/Vol] 21.0 mg/dL Critically high 7.0-18.0 [facility] Comment on above: Performed By: #### B MP ####[facility] Cnztzlyirt4045 [place] [address]Dr. Shahbaz Rogel Urea nitrogen/Creatinine [Mass ratio] 26.6 mg/mg Normal [facility] Comment on above: Performed By: #### B MP ####[facility] Wanclwlcbl[address] [place], [place] [address]Dr. Lilajarrod Juan F XR CHEST 2 Von 01-06-2023 XR CHEST [address] [facility] CBC AUTO DIFFon 04-06-2023 BASO # 0.0 103/ul Normal 0.0-0.1 [facility] Comment on above: Performed By: #### C BC ####[facility] Qtqltgszdp4336 [place] [address]Dr. Shahbaz Rogel Basophils/100 WBC (Bld) 0.2 % Normal 0.2-2.0 [facility] Comment on above: Performed By: #### C BC ####[facility] Tryxiaqigo[address] [place], [place] [address]DrChen Rogel EO # 0.0 103/ul Normal 0.0-0.7 [facility] Comment on above: Performed By: #### C BC ####[facility] Hfwqvndzua4964[address] [place], [place] [address]Dr. Shahbaz Rogel Eosinophils/100 WBC (Bld) 0.0 % Critically low 0.9-7.0 [facility] Comment on above: Performed By: #### C BC ####[facility] Bbsirfyesb[address] [place], [place] [address]Dr. Shahbaz Rogel Erythrocyte distribution width (RBC) [Ratio] 13.6 % Normal 11.0-15.0 [facility] Comment on above: Performed By: #### C BC ####[facility] Emnbkxhhmt30[address] [place], [place] [address]Dr. Shahbaz Rogel Hematocrit (Bld) [Volume fraction] 36.6 % Normal 36.0-48.0 [facility] Comment on above: Performed By: #### C BC ####[facility] Wvrlujgwhd[address] [place], [place] [address]Dr. Shahbaz Rogel Hemoglobin (Bld) [Mass/Vol] 11.6 g/dL Critically low 12.0-16.0 [facility] Comment on above: Performed By: #### C BC ####[facility] Vehuilhmaw13[address] [place], [place] [address]DrChen Rogel IG # 0.03 10e3/ul Normal 0.00-0.03 [facility] Comment on above: Performed By: #### C BC ####[facility] Akpiysullg[address] [place], [place] [address]DrChne Rogel IG % 0.5 % Normal 0.0-0.5 [facility] Comment on above: Performed By: #### C BC ####[facility] Jkgytdhnna4974 [place] [address]DrChen Rogel LYMPH # 0.6 103/ul Critically low 1.2-3.8 [facility] Comment on above: Performed By: #### C BC ####[facility] Tanzpzytfy0594 [place] [address]DrChen Rogel Lymphocytes/100 WBC (Bld) 10.7 % Critically low 20.5-60.0 [facility] Comment on above: Performed By: #### C BC ####[facility] Aqzftmgjcd019[address] [place], [place] [address]DrChen Rogel MANUAL DIFF REQ NO Normal [facility] Comment on above: Performed By: #### C BC ####[facility] Imtdbnhypj[address] [place], [place] [address]DrChen Rogel MCH (RBC) [Entitic mass] 27.7 pg Normal 26.7-34.0 [facility] Comment on above: Performed By: #### C BC ####[facility] Avtcsowmtv[address] [place], [place] [address]DrChen Rogel MCHC (RBC) [Mass/Vol] 31.7 g/dL Normal 29.9-35.2 [facility] Comment on above: Performed By: #### C BC ####[facility] Mkhggfgpxp8[address] [place], [place] [address]DrChen Rogel MCV (RBC) [Entitic vol] 87.4 fL Normal 81.0-99.0 [facility] Comment on above: Performed By: #### C BC ####[facility] Idszkpmsva[address] [place], [place] [address]DrChen Rogel MONO # 0.1 103/ul Critically low 0.3-0.8 [facility] Comment on above: Performed By: #### C BC ####[facility] Yjwjvtxijj7[address] [place], [place] [address]DrChen Rogel Monocytes/100 WBC (Bld) 2.5 % Normal 1.7-12.0 [facility] Comment on above: Performed By: #### C BC ####[facility] Rtoyuqlrwq[address] [place], [place] [address]Dr. Shahbaz Rogel NEUT # 4.8 103/ul Normal 1.4-6.5 [facility] Comment on above: Performed By: #### C BC ####[facility] Wjdmqmqltj729[address] [place], [place] [address]Dr. Shahbaz Rogel Neutrophils/100 WBC (Bld) 86.1 % Critically high 43.0-75.0 [facility] Comment on above: Performed By: #### C BC ####[facility] Siqoqbamxt[address] [place], [place] [address]Dr. Shahbaz Rogel Platelet mean volume (Bld) [Entitic vol] 10.0 fL Normal 9.5-13.5 [facility] Comment on above: Performed By: #### C BC ####[facility] Issqejqbkq8107[address] [place], [place] [address]Dr. Shahbaz Rogel PLT 193 103/ul Normal 150-450 [facility] Comment on above: Performed By: #### C BC ####[facility] Brailqapmz66[address] [place], [place] [address]Dr. Shahbaz Rogel RBC 4.19 106/ul Critically low 4.20-5.40 [facility] Comment on above: Performed By: #### C BC ####[facility] Wenoznzstq8775[address] [place], [place] [address]DrChen Rogel WBC 5.6 103/ul Normal 4.0-11.0 [facility] Comment on above: Performed By: #### C BC ####[facility] Zyphippcra[address] [place], [place] [address]DrChen Rogel PROF CHEM 8 (BAS METB)on Anion gap [Moles/Vol] 12.7 mmol/L Normal [facility] Comment on above: Performed By: #### B MP ####[facility] Firyyrqjod[address] [place], [place] [address]DrChen Rogel Calcium [Mass/Vol] 8.8 mg/dL Normal 8.5-10.1 [facility] Comment on above: Performed By: #### B MP ####[facility] Xguqmhcldp8496 [place] [address]Dr. Shahbaz Rogel Chloride [Moles/Vol] 107 mmol/L Normal 98-107 [facility] Comment on above: Performed By: #### B MP ####[facility] Lraousmlaq0137[address] [place], [place] [address]Dr. Shahbaz Rogel CO2 [Moles/Vol] 26.9 mmol/L Normal 21.0-32.0 [facility] Comment on above: Performed By: #### B MP ####[facility] Owcytzndco470[address] [place], [place] [address]Dr. Shahbaz Rogel Creatinine [Mass/Vol] 0.81 mg/dL Normal 0.55-1.02 [facility] Comment on above: Performed By: #### B MP ####[facility] Wdvmdfnbfa15[address] [place], [place] [address]Dr. Shahbaz Rogel EGFR-AF ZAMBIAN >60 Normal >=60 [facility] Comment on above: Performed By: #### B MP ####[facility] Kbzdsryjxz7099[address] [place], [place] [address]Dr. Shahbaz Rogel EGFR-NON AF ZAMBIAN >60 Normal >=60 [facility] Comment on above: Performed By: #### B MP ####[facility] Srvouokpjo[address] [place], [place] [address]Dr. Shahbaz Rogel Glucose [Mass/Vol] 144 mg/dL Critically high 74-106 [facility] Comment on above: Performed By: #### B MP ####[facility] Qfstmorjej588[address] [place], [place] [address]Dr. Shahbaz Rogel Potassium [Moles/Vol] 3.6 mmol/L Normal 3.5-5.1 [facility] Comment on above: Performed By: #### B MP ####[facility] Qntytbppyu[address] [place], [place] [address]Dr. Shahbaz Juan F Sodium [Moles/Vol] 143 mmol/L Normal 136-145 [facility] Comment on above: Performed By: #### B MP ####[facility] Gsrpjnrnpr[address] [place], [place] [address]Dr. Shahbaz Rogel Urea nitrogen [Mass/Vol] 20.0 mg/dL Critically high 7.0-18.0 [facility] Comment on above: Performed By: #### B MP ####[facility] Qcttyhxgsk[address] [place], [place] [address]Dr. Lilajarrod Juan F Urea nitrogen/Creatinine [Mass ratio] 24.7 mg/mg Normal [facility] Comment on above: Performed By: #### B MP ####[facility] Ptewdpnbjr312[address] [place], [place] [address]Dr. Shahbaz Juan F CBC W MANUAL DIFFon 01-05-20 23 ATYPICAL LYMPH # Normal [facility] Comment on above: Performed By: #### C BCMAN ####[facility] Ndmoaesrwt426[address] [place], [place] [address]Dr. Shahbaz Juan F ATYPICAL LYMPH % Normal [facility] Comment on above: Performed By: #### C BCMAN ####[facility] Cbezoakzws[address] [place], [place] [address]Dr. Shahbaz Rogel BAND # 0.0 103/ul Normal 0.0-0.3 [facility] Comment on above: Performed By: #### C BCMAN ####[facility] Seyekchcdd94[address] [place], [place] [address]Dr. Shahbaz Rogel BAND % 0 % Normal 0-5 [facility] Comment on above: Performed By: #### C BCMAN ####[facility] Jdoabddale7[address] [place], [place] [address]Dr. Shahbaz Rogel BASOM # 0.00 103/ul Normal 0.00-0.10 [facility] Comment on above: Performed By: #### C BCMAN ####[facility] Tcrxwzwzdz8634[address] [place], [place] [address]Dr. Shahbaz Rogel BASOM % 0.0 % Critically low 0.2-2.0 [facility] Comment on above: Performed By: #### C BCMAN ####[facility] Kwhsjzqlqo14[address] [place] [phone]. Shahbaz Rogel BLAST # Normal [facility] Comment on above: Performed By: #### C BCMAN ####[facility] Lvkkbytljv400[address] [place] [address]Dr. Shahbaz Rogel BLAST % Normal [facility] Comment on above: Performed By: #### C BCMAN ####[facility] Spmskckfbz3257 [place] [address]Dr. Shahbaz Rogel CORRECTED WBC Normal 4.0-11.0 [facility] Comment on above: Performed By: #### C BCMAN ####[facility] Ersevagccl[address] [place], [place] [address]Dr. Shahbaz Rogel EOS # 0.00 103/ul Normal 0.00-0.70 [facility] Comment on above: Performed By: #### C BCBRICE ####[facility] Tzlweibfag[address] [place], [place] [address]Dr. Shahbaz Rogel EOS% 0.0 % Critically low 0.9-7.0 [facility] Comment on above: Performed By: #### C BCBRICE ####[facility] Mmtvtcdchd0935[address] [place], [place] [address]Dr. Shahbaz Rogel HCT 36.5 % Normal 36.0-48.0 [facility] Comment on above: Performed By: #### C BCBRICE ####[facility] Dccbppktjk88[address] [place], [place] [address]Dr. Shahbaz Rogel HGB 11.8 g/dl Critically low 12.0-16.0 [facility] Comment on above: Performed By: #### C BCBRICE ####[facility] Ssthmpbrau56[address] [place], [place] [address]Dr. Shahbaz Rogel LYMPHM # 0.42 103/ul Critically low 1.20-3.80 [facility] Comment on above: Performed By: #### C BCMAN ####[facility] Tzrkshojth6904[address] [place], [place] [address]Dr. Shahbaz Rogel LYMPHM% 12.0 % Critically low 20.5-60.0 [facility] Comment on above: Performed By: #### C CAIN ####[facility] Igghmvmdbc8251 [place] [phone]. Shahbaz Rogel MCH 28.0 pg Normal 26.7-34.0 [facility] Comment on above: Performed By: #### C CAIN ####[facility] Abhznmshmc8060 [place] [phone]. Shahbaz Rogel MCHC 32.3 g/dl Normal 29.9-35.2 [facility] Comment on above: Performed By: #### C CAIN ####[facility] Kpcixqqeye9325 [place] [phone]. Shahbaz Rogel MCV 86.7 fL Normal 81.0-99.0 [facility] Comment on above: Performed By: #### C CAIN ####[facility] Ltvbqxllgd3925 [place] [address]Dr. Shahbaz Rogel METAMYELOCYTE # Normal [facility] Comment on above: Performed By: #### Cheri BARLOW ####[facility] Wlhlcevbms[address] [place], [place] [address]Dr. Shahbaz Rogel METAMYELOCYTE % Normal [facility] Comment on above: Performed By: #### Cheri BARLOW ####[facility] Anhegayuny[address] [place], [place] [address]Dr. Shahbaz Rogel MONOM# 0.07 103/ul Critically low 0.30-0.80 [facility] Comment on above: Performed By: #### C CAIN ####[facility] Dxtnjltcvh3954 [place] [phone]. Shahbaz Rogel MONOM% 2.0 % Normal 1.7-12.0 [facility] Comment on above: Performed By: #### C CAIN ####[facility] Snvtooweve[address] [place], [place] [address]Dr. Shahbaz Rogel MPV 9.9 fL Normal 9.5-13.5 [facility] Comment on above: Performed By: #### C CAIN ####[facility] Hmxitubeoc837[address] [place], [place] [address]Dr. Shahbaz oRgel MYELOCYTE # Normal [facility] Comment on above: Performed By: #### C CAIN ####[facility] Ovdlofkwiq3700 [place] [phone]. Shahbaz Rogel MYELOCYTE % Normal [facility] Comment on above: Performed By: #### C CAIN ####[facility] Ijqcqwgsnv4001 [place] [phone]. Shahbaz Rogel NRBC Normal [facility] Comment on above: Performed By: #### C CAIN ####[facility] Iimlalshex1156 [place] [phone]. Shahbaz Rogel PLT 178 103/ul Normal 150-450 [facility] Comment on above: Performed By: #### C CAIN ####[facility] Nwnyjmwvwp5558 [place] [address]Dr. Shahbaz Rogel RBC 4.21 106/ul Normal 4.20-5.40 [facility] Comment on above: Performed By: #### C CAIN ####[facility] B[address]qhczfarp[address] [place], [place] [address]Dr. Shahbaz Rogel RDW 13.2 % Normal 11.0-15.0 [facility] Comment on above: Performed By: #### C CAIN ####[facility] Dchqmbcvqy[address] [place], [place] [address]Dr. Shahbaz Rogel SEG # 3.01 103/ul Normal 1.40-6.50 [facility] Comment on above: Performed By: #### C CAIN ####[facility] Elivoevhrh6[address] [place], [place] [address]Dr. Shahbaz Rogel SEG % 86.0 % Critically high 43.0-75.0 [facility] Comment on above: Performed By: #### C CAIN ####[facility] Lhgvarewjt6456 [place] [phone]. Shahbaz Rogel WBC 3.5 103/ul Critically low 4.0-11.0 [facility] Comment on above: Performed By: #### C CAIN ####[facility] Rxcbodquuk[address] [place], [place] [address]Dr. Shahbaz Rogel PROF CHEM 8 (BAS METB)on Anion gap [Moles/Vol] 10.5 mmol/L Normal [facility] Comment on above: Performed By: #### B MP ####[facility] Miazcdirns[address] [place], [place] [address]Dr. Shahbaz Rogel Calcium [Mass/Vol] 8.7 mg/dL Normal 8.5-10.1 [facility] Comment on above: Performed By: #### B MP ####[facility] Jmncazxlpr[address] [place], [place] [address]Dr. Shahbaz Rogel Chloride [Moles/Vol] 108 mmol/L Critically high 98-107 [facility] Comment on above: Performed By: #### B MP ####[facility] Czfkayfaom[address] [place], [place] [address]Dr. Shahbaz Rogel CO2 [Moles/Vol] 25.2 mmol/L Normal 21.0-32.0 [facility] Comment on above: Performed By: #### B MP ####[facility] Xuvbanvkhu7087[address] [place], [place] [address]Dr. Shahbaz Rogel Creatinine [Mass/Vol] 0.77 mg/dL Normal 0.55-1.02 [facility] Comment on above: Performed By: #### B MP ####[facility] Riejubunis[address] [place], [place] [address]Dr. Shahbaz Rogel EGFR-AF ZAMBIAN >60 Normal >=60 [facility] Comment on above: Performed By: #### B MP ####[facility] Fydjzstvnm[address] [place], [place] [address]Dr. Shahbaz Rogel EGFR-NON AF ZAMBIAN >60 Normal >=60 [facility] Comment on above: Performed By: #### B MP ####[facility] Daghownzmp[address] [place], [place] [address]Dr. Shahbaz Rogel Glucose [Mass/Vol] 169 mg/dL Critically high 74-106 [facility] Comment on above: Performed By: #### B MP ####[facility] Psapexihvq[address] [place], [place] [address]Dr. Shahbaz Rogel Potassium [Moles/Vol] 3.7 mmol/L Normal 3.5-5.1 [facility] Comment on above: Performed By: #### B MP ####[facility] Yriygeyinl[address] [place], [place] [address]Dr. Shahbaz Rogel Sodium [Moles/Vol] 140 mmol/L Normal 136-145 [facility] Comment on above: Performed By: #### B MP ####[facility] Dmanutxqbj67[address] [place], [place] [address]Dr. Shahbaz Rogel Urea nitrogen [Mass/Vol] 14.0 mg/dL Normal 7.0-18.0 [facility] Comment on above: Performed By: #### B MP ####[facility] Ifrygfwzef9[address] [place], [place] [address]Dr. Shahbaz Rogel Urea nitrogen/Creatinine [Mass ratio] 18.2 mg/mg Normal [facility] Comment on above: Performed By: #### B MP ####[facility] Coshjekddk[address] [place], [place] [address]Dr. Shahbaz Rogel RESPIRATORY PANEL PLUSon Adenovirus Not detected Normal NOT DETECTED [facility] Comment on above: Performed By: #### R SPLUS ####[facility] [address]fvsbvvbp[address] [place], [place] [address]Dr. Shahbaz Rogel B. Parapertusis Not detected Normal NOT DETECTED [facility] Comment on above: Performed By: #### R SPLUS ####[facility] Zbpqssgzrm[address] [place], [place] [address]Dr. Shahbaz Rogel B. Pertussis Not detected Normal NOT DETECTED [facility] Comment on above: Performed By: #### R SPLUS ####[facility] Puapvxhwqn[address] [place], [place] [address]Dr. Shahbaz Rogel Chlamydia Pneumoniae Not detected Normal NOT DETECTED [facility] Comment on above: Performed By: #### R SPLUS ####[facility] Semtvouteb6[address] [place], [place] [address]Dr. Shahbaz Rogel Coronavirus 229E Not detected Normal NOT DETECTED [facility] Comment on above: Performed By: #### R SPLUS ####[facility] Wwqrbnrgrp[address] [place], [place] [address]Dr. Shahbaz Rogel Coronavirus HKU1 Not detected Normal NOT DETECTED [facility] Comment on above: Performed By: #### R SPLUS ####[facility] Ymllbfwlvs[address] [place], [place] [address]Dr. Shahbaz Rogel Coronavirus NL63 Not detected Normal NOT DETECTED [facility] Comment on above: Performed By: #### R SPLUS ####[facility] Kmiskw[address]be[address] [place], [place] [address]Dr. Shahbaz Rogel Coronavirus OC43 Not detected Normal NOT DETECTED [facility] Comment on above: Performed By: #### R SPLUS ####[facility] Dkapxdhvay[address] [place], [place] [address]Dr. Shahbaz Rogel Influenza A H1 Not detected Normal NOT DETECTED [facility] Comment on above: Performed By: #### R SPLUS ####[facility] Zmctzusobv[address] [place], [place] [address]Dr. Shhabaz Rogel Influenza A H1 2009 Not detected Normal NOT DETECTED [facility] Comment on above: Performed By: #### R SPLUS ####[facility] Hlwcolbnif[address] [place], [place] [address]Dr. Shahbaz Rogel Influenza A H3 Not detected Normal NOT DETECTED [facility] Comment on above: Performed By: #### R SPLUS ####[facility] O[address]jomrdhp[address] [place], [place] [address]Dr. Shahbaz Rogel Influenza B Not detected Normal NOT DETECTED [facility] Comment on above: Performed By: #### R SPLUS ####[facility] Yiuosqtyrg[address] [place], [place] [address]Dr. Lilajarrod Rogel Metapneumovirus Detected Abnormal NOT DETECTED [facility] Comment on above: Performed By: #### R SPLUS ####[facility] Roqxyofuwh[address] [place], [place] [address]Dr. Shahbaz Rogel Mycoplas. Pneumoniae Not detected Normal NOT DETECTED [facility] Comment on above: Performed By: #### R SPLUS ####[facility] Vlifbddybf[address] [place], [place] [address]Dr. Shahbaz Rogel Parainfluenza 1 Not detected Normal NOT DETECTED [facility] Comment on above: Performed By: #### R SPLUS ####[facility] Bmpsthhmba[address] [place], [place] [address]Dr. Shahbaz Rogel Parainfluenza 2 Not detected Normal NOT DETECTED [facility] Comment on above: Performed By: #### R SPLUS ####[facility] K[address]nxovmo[address] [place], [place] [address]Dr. Shahbaz Rogel Parainfluenza 3 Not detected Normal NOT DETECTED [facility] Comment on above: Performed By: #### R SPLUS ####[facility] Huocolrqwt[address] [place], [place] [address]Dr. Shahbaz Roegl Parainfluenza 4 Not detected Normal NOT DETECTED [facility] Comment on above: Performed By: #### R SPLUS ####[facility] Q[address]ixrljxbw[address] [place], [place] [address]Dr. Shahbaz Rogel Rhino/Enterovirus Not detected Normal NOT DETECTED [facility] Comment on above: Performed By: #### R SPLUS ####[facility] Mrtndrqlfq[address] [place], [place] [address]Dr. Shahbaz Rogel RP2 Header 1 RESPIRATORY PANEL: VIRUSES Normal [facility] Comment on above: Performed By: #### R SPLUS ####[facility] Jvsphiqgfo[address] [place], [place] [address]Dr. Shahbaz Rogel RP2 Header 2 RESPIRATORY PANEL: BACTERIA Normal [facility] Comment on above: Performed By: #### R SPLUS ####[facility] Msnurebcxn[address] [place], [place] [address]Dr. Shahbaz Rogel RSV Not detected Normal NOT DETECTED [facility] Comment on above: Performed By: #### R SPLUS ####[facility] Tclwiofkkx[address] [place], [place] [address]Dr. Shahbaz Rogel SARS-CoV-2 (COVID-19) RNA PAVAN+probe Ql (Unsp spec) Not detected Normal NOT DETECTED [facility] Comment on above: Performed By: #### R SPLUS ####[facility] Fcohlsnuiu[address] [place], [place] [address]Dr. Shahbaz Rogel CARDIAC ROSALINA 3-6on 3 CK [Catalytic activity/Vol] 148 U/L Normal 26-192 [facility] Comment on above: Performed By: #### C MREP ####[facility] [address] [place] [address]Dr. Shahbaz Rogel CK.MB [Mass/Vol] 0.84 ng/mL Normal <=3.60 [facility] Comment on above: Performed By: #### C MREP ####[facility] Q[address]zs[address] [place] [address]Dr. Shahbaz Rogel HSTROP 6.4 pg/mL Normal 4.0-51.3 [facility] Comment on above: Result Comment: CUT- OFF POINTS HAVE BEEN ESTABLISHED BASED ON THE FOURTH UNIVERSAL DEFINITIONS OF MYOCARDIALINFARCTION. THE UPPER REFERENCE LIMIT (URL) OF TROPONIN, DEFINED THE 99TH PERCENTILE OFcTnI DISTRIBUTION IN A REFERENCE POPULATION, HAS BEEN CONFIRMED THE DECISION THRESHOLDFOR SC DIAGNOSIS. Performed By: #### C MREP ####[facility] [address] [place] [address]Dr. Shahbaz Rogel CBC W MANUAL DIFFon 01-04-20 23 ATYPICAL LYMPH # Normal [facility] Comment on above: Performed By: #### C CAIN ####[facility] [address] [place] [address]Dr. Shahbaz Rogel ATYPICAL LYMPH % Normal [facility] Comment on above: Performed By: #### C BCMAN ####[facility] Ph[address]dxk[address] [place] [address]Dr. Shahbaz Juan F BAND # 0.0 103/ul Normal 0.0-0.3 [facility] Comment on above: Performed By: #### C CHANELMAN ####[facility] [address] [place] [address]Dr. Shahbaz Juan F BAND % 0 % Normal 0-5 [facility] Comment on above: Performed By: #### C BCMAN ####[facility] Thviaeaxum[address] [place] [address]Dr. Shahbaz Juan F BASOM # 0.00 103/ul Normal 0.00-0.10 [facility] Comment on above: Performed By: #### C CAIN ####[facility] B[address]wxtir[address] [place] [address]Dr. Shahbaz Rogel BASOM % 0.0 % Critically low 0.2-2.0 [facility] Comment on above: Performed By: #### C CAIN ####[facility] Xcsizzircu[address] [place] [address]Dr. Shahbaz Rogel BLAST # Normal [facility] Comment on above: Performed By: #### C CAIN ####[facility] Leqjqpxkme[address] [place], [place] [address]Dr. Shahbaz Rogel BLAST % Normal [facility] Comment on above: Performed By: #### C CAIN ####[facility] Xeicdzbhon[address] [place], [place] [address]Dr. Shahbaz Rogel CORRECTED WBC Normal 4.0-11.0 [facility] Comment on above: Performed By: #### C CAIN ####[facility] Vmsskndrex[address] [place], [place] [address]Dr. Shahbaz Rogel EOS # 0.02 103/ul Normal 0.00-0.70 [facility] Comment on above: Performed By: #### C CAIN ####[facility] Znnxopsyml[address] [place], [place] [address]Dr. Shahbaz Rogel EOS% 1.0 % Normal 0.9-7.0 [facility] Comment on above: Performed By: #### C CAIN ####[facility] Oeqoujltrm[address] [place], [place] [address]Dr. Shahbaz Rogel HCT 37.5 % Normal 36.0-48.0 [facility] Comment on above: Performed By: #### C CAIN ####[facility] Gpzfdcywhl[address] [place], [place] [address]Dr. Shahbaz Rogel HGB 12.0 g/dl Normal 12.0-16.0 [facility] Comment on above: Performed By: #### C CAIN ####[facility] Znxqdwyqmu[address] [place], [place] [address]Dr. Shahbaz Rogel LYMPHM # 0.21 103/ul Critically low 1.20-3.80 [facility] Comment on above: Performed By: #### C CAIN ####[facility] X[address]jtnqu[address] [place] [id number]. Shahbaz Rogel LYMPHM% 13.0 % Critically low 20.5-60.0 [facility] Comment on above: Performed By: #### C CAIN ####[facility] Jmjnpuplum[address] [place] [phone]. Shahbaz Rogel MCH 27.8 pg Normal 26.7-34.0 [facility] Comment on above: Performed By: #### C CAIN ####[facility] [address]qngiuedp64[address] [place] [address]Dr. Shahbaz Rogel MCHC 32.0 g/dl Normal 29.9-35.2 [facility] Comment on above: Performed By: #### C CAIN ####[facility] I[address]adeqjsw[address] [place], [place] [address]Dr. Shahbaz Rogel MCV 86.8 fL Normal 81.0-99.0 [facility] Comment on above: Performed By: #### C CAIN ####[facility] Tymhkvnwgq[address] [place], [place] [address]Dr. Shahbaz Rogel METAMYELOCYTE # Normal [facility] Comment on above: Performed By: #### C CAIN ####[facility] Yffyymjiwr[address] [place] [address]Dr. Shahbaz Rogel METAMYELOCYTE % Normal [facility] Comment on above: Performed By: #### C CAIN ####[facility] Fzqmkjsqgy030[address] [place] [phone]. Shahbaz Rogel MONOM# 0.02 103/ul Critically low 0.30-0.80 [facility] Comment on above: Performed By: #### C CAIN ####[facility] Lxfvhejsyg14[address] [place] [address]Dr. Shahbaz Rogel MONOM% 1.0 % Critically low 1.7-12.0 [facility] Comment on above: Performed By: #### C CAIN ####[facility] Z[address]zsj4[address] [place], [place] [address]Ex. Shahbaz Rogel MPV 9.5 fL Normal 9.5-13.5 [facility] Comment on above: Performed By: #### C CAIN ####[facility] T[address]dcbdgt13[address] [place], [place] [address]Ev. Shahbaz Rogel MYELOCYTE # Normal [facility] Comment on above: Performed By: #### C CAIN ####[facility] Iffhpsfagb55[address] [place] [phone]. Shahbaz Rogel MYELOCYTE % Normal [facility] Comment on above: Performed By: #### C CAIN ####[facility] X[address]mmiuz[address] [place] [phone]. Shahbaz Rogel NRBC Normal [facility] Comment on above: Performed By: #### C CAIN ####[facility] Jdacgvrtwj09[address] [place] [phone]. Shahbaz Rogel PLT 173 103/ul Normal 150-450 [facility] Comment on above: Performed By: #### C CAIN ####[facility] Nartkczttm37[address] [place] [phone]. Shahbaz Rogel RBC 4.32 106/ul Normal 4.20-5.40 [facility] Comment on above: Performed By: #### C CAIN ####[facility] Mfedkexmwj6236 [place] [phone]. Shahbaz Rogel RDW 13.1 % Normal 11.0-15.0 [facility] Comment on above: Performed By: #### C CAIN ####[facility] Nhtnscwvzk9717 [place] [phone]. Shahbaz Rogel SEG # 1.36 103/ul Critically low 1.40-6.50 [facility] Comment on above: Performed By: #### C CAIN ####[facility] Vfeeftcikm7[address] [place] [phone]. Shahbaz Rogel SEG % 85.0 % Critically high 43.0-75.0 [facility] Comment on above: Performed By: #### C CAIN ####[facility] Czyjylngqv64[address] [place] [address]Dr. Shahbaz Rogel WBC 1.6 103/ul Critically low 4.0-11.0 [facility] Comment on above: Performed By: #### C CAIN ####[facility] [address]qrxecq[address] [place], [place] [address]Dr. Shahbaz Rogel CT CHEST WO CONon 3 CT CHEST WO CON Normal [facility] ER URINE PROFILEon 3 Bilirubin Ql (U) Negative Normal NEGATIVE [facility] Comment on above: Performed By: #### E RUR ####[facility] R[address]wzotvsmr[address] [place], [place] [address]Dr. Shahbaz Rogel Clarity (U) CLEAR Normal CLEAR [facility] Comment on above: Performed By: #### E RUR ####[facility] J[address]fbhhjqkm[address] [place], [place] [address]Dr. Shahbaz Rogel Color (U) LT. YELLOW Normal YELLOW [facility] Comment on above: Performed By: #### E RUR ####[facility] Mkfzntbgav[address] [place], [place] [address]Dr. Shahbaz Rogel ERUAHD A micrscopic examina tion will be performed if indicated. Normal [facility] Comment on above: Performed By: #### E RUR ####[facility] Fhyrjdblct[address] [place], [place] [address]Dr. Shahbaz Rogel Glucose Ql (U) Negative Normal NEGATIVE [facility] Comment on above: Performed By: #### E RUR ####[facility] Zapgephrys[address] [place], [place] [address]Dr. Shahbaz Rogel Hemoglobin Ql (U) Negative Normal NEGATIVE [facility] Comment on above: Performed By: #### E RUR ####[facility] Lneepvwpha[address] [place], [place] [address]Dr. Shahbaz Rogel Ketones Ql (U) Negative Normal NEGATIVE [facility] Comment on above: Performed By: #### E RUR ####[facility] Stpasaogso[address] [place], [place] [address]Dr. Shahbaz Rogel LEUKOCYTES Negative Normal NEGATIVE [facility] Comment on above: Performed By: #### E RUR ####[facility] Kw[address]pcyd[address] [place] [address]Dr. Shahbaz Rogel Nitrite Ql (U) Negative Normal NEGATIVE [facility] Comment on above: Performed By: #### E RUR ####[facility] Ywkdaazynh[address] [place], [place] [address]Dr. Shahbaz Rogel pH (U) 6.0 [pH] Normal 5-9 [facility] Comment on above: Performed By: #### E RUR ####[facility] Oh[address]hdzuva[address] [place], [place] [address]Dr. Shahbaz Rogel SPEC GRAVITY <=1.005 Abnormal 1.005-<=1. 025 [facility] Comment on above: Performed By: #### E RUR ####[facility] Kcihvzrrzl[address] [place], [place] [address]Dr. Shahbaz Rogel UA PROTEIN Negative Normal NEGATIVE/ TRACE [facility] Comment on above: Performed By: #### E RUR ####[facility] Rtkmsrbrqi[address] [place], [place] [address]Dr. Shahbaz Rogel UR MICRO IND NOT INDICATED Normal [facility] Comment on above: Performed By: #### E RUR ####[facility] Xstxdqgyrx[address] [place], [place] [address]Dr. Shahbaz Rogel Urobilinogen Qn (U) 0.2 {Melida'U}/dL Normal 0.2 - 1. 0 [facility] Comment on above: Performed By: #### E RUR ####[facility] C[address]qhgqatxy[address] [place], [place] [address]Dr. Shahbaz Rogel LACTATE/LACTIC ACIDon 2022 Lactate [Moles/Vol] 1.5 mmol/L Normal 0.4-2.0 [facility] Comment on above: Performed By: #### L ACT ####[facility] T[address]cdqvjbe[address] [place], [place] [address]Dr. Shahbaz Rogel PROF CHEM 8 (BAS METB)on Anion gap [Moles/Vol] 11.6 mmol/L Normal Th [facility] Comment on above: Performed By: #### B MP ####[facility] Bcgrsqggct[address] [place] [address]Dr. Lilajarrod Rogel Calcium [Mass/Vol] 8.1 mg/dL Critically low 8.5-10.1 [facility] Comment on above: Performed By: #### B MP ####[facility] Ypetkoxbzb[address] [place], [place] [address]Dr. Lilajarrod Juan F Chloride [Moles/Vol] 109 mmol/L Critically high 98-107 [facility] Comment on above: Performed By: #### B MP ####[facility] Togftbyjjx9[address] [place], [place] [address]Dr. Lilajarrod Juan F CO2 [Moles/Vol] 25.2 mmol/L Normal 21.0-32.0 [facility] Comment on above: Performed By: #### B MP ####[facility] Gazxveobjp[address] [place], [place] [address]Dr. Lilajarrod Juan F Creatinine [Mass/Vol] 0.89 mg/dL Normal 0.55-1.02 [facility] Comment on above: Performed By: #### B MP ####[facility] Jczxjbvcvx[address] [place], [place] [address]Dr. Lilajarrod Juna F EGFR-AF ZAMBIAN >60 Normal >=60 [facility] Comment on above: Performed By: #### B MP ####[facility] Fipyjhzata[address] [place], [place] [address]Dr. Shahbaz Rogel EGFR-NON AF ZAMBIAN >60 Normal >=60 [facility] Comment on above: Performed By: #### B MP ####[facility] Smixgwyiii[address] [place], [place] [address]Dr. Shahbaz Rogel Glucose [Mass/Vol] 167 mg/dL Critically high 74-106 [facility] Comment on above: Performed By: #### B MP ####[facility] Vqrokajxxx[address] [place], [place] [address]Dr. Shahbaz Rogel Potassium [Moles/Vol] 3.8 mmol/L Normal 3.5-5.1 [facility] Comment on above: Performed By: #### B MP ####[facility] Yanmrzguxt[address] [place] [address]Dr. Shahbaz Juan F Sodium [Moles/Vol] 142 mmol/L Normal 136-145 [facility] Comment on above: Performed By: #### B MP ####[facility] Tpbokiihkz0178 [place] [phone]. Shahbaz Juan F Urea nitrogen [Mass/Vol] 9.0 mg/dL Normal 7.0-18.0 [facility] Comment on above: Performed By: #### B MP ####[facility] Xznxpwiwwp[address] [place], [place] [address]Dr. Shahbaz Juan F Urea nitrogen/Creatinine [Mass ratio] 10.1 mg/mg Normal [facility] Comment on above: Performed By: #### B MP ####[facility] Trqjbhrcki[address] [place], [place] [address]Dr. Shahbaz Juan F CARDIAC ROSALINA ADMITon 023 CK [Catalytic activity/Vol] 173 U/L Normal 26-192 [facility] Comment on above: Performed By: #### C EZEKIEL, BMP ####[facility] Uavlmpuoyt[address] [place], [place] [address]Dr. Shahbaz Juan F CK.MB [Mass/Vol] 0.55 ng/mL Normal <=3.60 [facility] Comment on above: Performed By: #### C EZEKIEL, BMP ####[facility] Qzawkqbdyd[address] [place], [place] [address]Dr. Shahbaz Juan F HSTROP 5.9 pg/mL Normal 4.0-51.3 [facility] Comment on above: Result Comment: CUT- OFF POINTS HAVE BEEN ESTABLISHED BASED ON THE FOURTH UNIVERSAL DEFINITIONS OF MYOCARDIALINFARCTION. THE UPPER REFERENCE LIMIT (URL) OF TROPONIN, DEFINED THE 99TH PERCENTILE OFcTnI DISTRIBUTION IN A REFERENCE POPULATION, HAS BEEN CONFIRMED THE DECISION THRESHOLDFOR SC DIAGNOSIS. Performed By: #### C EZEKIEL, BMP ####[facility] Cjprcadgnd[address] [place], [place] [address]Dr. Shahbaz Rogel LEN 76 ng/mL Normal 9-82 [facility] Comment on above: Performed By: #### C JOSSYM, BMP ####[facility] Cdtuytjcgz[address] [place] [address]Dr. Shahbaz Rogel CBC W MANUAL DIFFon 01-03-20 23 ATYPICAL LYMPH # Normal [facility] Comment on above: Performed By: #### C CAIN ####[facility] Clcpomxafv34[address] [place] [address]Dr. Shahbaz Rogel ATYPICAL LYMPH % Normal [facility] Comment on above: Performed By: #### C CAIN ####[facility] Qnkczfymcy0632 [place] [address]Dr. Shahbaz Rogel BAND # Normal 0.0-0.3 [facility] Comment on above: Performed By: #### Cheri BARLOW ####[facility] Lxqfbzkssd[address] [place], [place] [address]Dr. Shahbaz Rogel BAND % Normal 0-5 [facility] Comment on above: Performed By: #### Cheri BARLOW ####[facility] Ivtuztoumr[address] [place], [place] [address]Dr. Shahbaz Rogel BASOM # 0.00 103/ul Normal 0.00-0.10 [facility] Comment on above: Performed By: #### Cheri BARLOW ####[facility] [address]svqwikjb[address] [place], [place] [address]Dr. Shahbaz Rogel BASOM % 0.0 % Critically low 0.2-2.0 [facility] Comment on above: Performed By: #### Cheri BARLOW ####[facility] R[address]wc[address] [place], [place] [address]Dr. Shahbaz Rogel BLAST # Normal [facility] Comment on above: Performed By: #### Cheri BARLOW ####[facility] Yeodjdlmyt[address] [place], [place] [address]Dr. Shahbaz Rogel BLAST % Normal [facility] Comment on above: Performed By: #### Cheri BARLOW ####[facility] Knmofvbpgd[address] [place], [place] [address]Dr. Shahbaz Rogel CORRECTED WBC Normal 4.0-11.0 [facility] Comment on above: Performed By: #### C CAIN ####[facility] Wcxdjmunfw2951 [place], [place] [address]Pr. Shahbaz Rogel EOS # 0.03 103/ul Normal 0.00-0.70 [facility] Comment on above: Performed By: #### C CAIN ####[facility] X[address]zmycayl[address] [place] [phone]. Shahbaz Rogel EOS% 1.0 % Normal 0.9-7.0 [facility] Comment on above: Performed By: #### C CAIN ####[facility] Chddignryh4862 [place] [phone]. Shahbaz Rogel HCT 42.8 % Normal 36.0-48.0 [facility] Comment on above: Performed By: #### C CAIN ####[facility] Zdgkkrqgsa5111 [place] [phone]. Shahbaz Rogel HGB 14.1 g/dl Normal 12.0-16.0 [facility] Comment on above: Performed By: #### C CAIN ####[facility] Iklvgxsvlo0608 [place] [phone]. Shahbaz Rogel LYMPHM # 0.64 103/ul Critically low 1.20-3.80 [facility] Comment on above: Performed By: #### C CAIN ####[facility] Faiwncifre9796 [place] [phone]. Shahbaz Rogel LYMPHM% 23.0 % Normal 20.5-60.0 [facility] Comment on above: Performed By: #### C CAIN ####[facility] Vmbxccxpgq5324 [place] [phone]. Shahbaz Rogel MCH 28.0 pg Normal 26.7-34.0 [facility] Comment on above: Performed By: #### C CAIN ####[facility] Aujyhztlck76[address] [place] [phone]. Shahbaz Rogel MCHC 32.9 g/dl Normal 29.9-35.2 [facility] Comment on above: Performed By: #### Cheri BARLOW ####[facility] Pdpxbqhvxq7938 [place] [phone]. Shahbaz Rogel MCV 84.9 fL Normal 81.0-99.0 [facility] Comment on above: Performed By: #### C BCBRICE ####[facility] Nmixdvurml2540 [place] [phone]. Shahbaz Rogel METAMYELOCYTE # Normal [facility] Comment on above: Performed By: #### C CAIN ####[facility] Efqnxsgilf3128 [place] [phone]. Shahbaz Rogel METAMYELOCYTE % Normal [facility] Comment on above: Performed By: #### C CAIN ####[facility] Eobpjvyjdk[address] [place], [place] [address]Dr. Shahbaz Rogel MONOM# 0.31 103/ul Normal 0.30-0.80 [facility] Comment on above: Performed By: #### C CAIN ####[facility] [address]ytgehitgh[address] [place], [place] [address]Dr. Shahbaz Rogel MONOM% 11.0 % Normal 1.7-12.0 [facility] Comment on above: Performed By: #### C CAIN ####[facility] Utoepuamkv[address] [place], [place] [address]Dr. Shahbaz Rogel MPV 9.5 fL Normal 9.5-13.5 [facility] Comment on above: Performed By: #### C CAIN ####[facility] Jvdquwrfsu[address] [place], [place] [address]Dr. Shahbaz Rogel MYELOCYTE # Normal [facility] Comment on above: Performed By: #### C CAIN ####[facility] Unekyemurv4953 [place] [phone]. Shahbaz Rogel MYELOCYTE % Normal [facility] Comment on above: Performed By: #### C CAIN ####[facility] Scqzeezyzm[address] [place], [place] [address]Dr. Shahbaz Rogel NRBC Normal [facility] Comment on above: Performed By: #### C CAIN ####[facility] Snblcfqvxo[address] [place], [place] [address]Dr. Shahbaz Rogel PLT 197 103/ul Normal 150-450 [facility] Comment on above: Performed By: #### C CHANELBRICE ####[facility] Jkhbhuznyj8462 [place], [place] [address]Ob. Shahbaz Rogel RBC 5.04 106/ul Normal 4.20-5.40 [facility] Comment on above: Performed By: #### C CAIN ####[facility] Kfxdtufgqk5219 [place], [place] [address]Ih. Shahbaz Rogel RDW 13.2 % Normal 11.0-15.0 [facility] Comment on above: Performed By: #### C CAIN ####[facility] Amwsutgtfi3278 [place], [place] [address]Kq. Shahbaz Rogel SEG # 1.82 103/ul Normal 1.40-6.50 [facility] Comment on above: Performed By: #### C CAIN ####[facility] Abksykskpz5699 [place], [place] [address]Ga. Shahbaz Rogel SEG % 65.0 % Normal 43.0-75.0 [facility] Comment on above: Performed By: #### C CAIN ####[facility] Zmtgubcdcq7554 [place], [place] [address]Xn. Shahbaz Rogel WBC 2.8 103/ul Critically low 4.0-11.0 [facility] Comment on above: Performed By: #### C CAIN ####[facility] Fkmdhmyyss5710 [place], [place] [address]Dn. Shahbaz Rogel Covid-19 PCR ([facility]on SARS-CoV-2 (COVID-19) RNA PAVAN+probe Ql (Unsp spec) Not detected Normal NOT DETECTED [facility] Comment on above: Result Comment: When diagnostic testing is negative, the possibility of a false negative should be considered inthe context of a patient's recent exposures and the presence of clinical signs and symptomsconsistent with SARS-CoV-2.This test is not yet approved or cleared by the [place] FDA. When there are no FDA-approved or cleared tests available, and other criteria are met, FDA can make tests available under an emergency access mechanism called an Emergency Use Authorization (EUA). The EUA for this test is supported by the [place] of Health and Human Service's declaration that circumstances exist to justify the emergency use of in vitro diagnostics for the detection and/or diagnosis of the virus that causes COVID-19. This EUA will remain in effect for the duration of the COVID-19 declaration justifying emergency of IVDs, unless it is terminated or revoked by the FDA (after which the test may no longer be used). Performed By: #### C VDTBH ####[facility] Moyijugbgm6[address] [place] [address]Dr. Shahbaz Rogel D-DIMERon 01-02-2023 D-DIMER 0.38 mg/L FEU Normal <=0.59 [facility] Comment on above: Performed By: #### D DIM ####[facility] [address]juoz[address] [place], [place] [address]DrChen Rogel D-DIMER COMMENTS SEE BELOW Normal [facility] Comment on above: Result Comment: Incr eases in D-Dimer concentration observed with thromboembolic events can be variable due to localization, size, and age of the thrombus. Therefore, a thromboembolic event cannot be diagnosed with certainty on the basis of the reference range. D-Dimers may also be elevated for a variety of disorders including: advanced age, , coronary disease, cancer, liver disease, infection, inflammation, hematoma, DIC, trauma, post-surgery, diabetes, thrombolytic or anticoagulant therapy, stress, and generalized hospitalization. Performed By: #### D DIM ####[facility] Cceoyoyaae[address] [place], [place] [address]Dr. Shahbaz Rogel LACTATE/LACTIC ACIDon 2022 Lactate [Moles/Vol] 2.1 mmol/L Critically high 0.4-2.0 [facility] Comment on above: Performed By: #### L ACT ####[facility] [address]len[address] [place], [place] [address]DrChen Rogel PROF CHEM 8 (BAS METB)on Anion gap [Moles/Vol] 14.3 mmol/L Normal Th [facility] Comment on above: Performed By: #### C MADM, BMP ####[facility] [address] [place] [id number]. Shahbaz Rogel Calcium [Mass/Vol] 9.0 mg/dL Normal 8.5-10.1 [facility] Comment on above: Performed By: #### Cheri FALCON, BMP ####[facility] [address] [place], [place] [address]Dr. Shahbaz Rogel Chloride [Moles/Vol] 102 mmol/L Normal 98-107 [facility] Comment on above: Performed By: #### C EZEKIEL, BMP ####[facility] [address] [place], [place] [address]Dr. Shahbaz Rogel CO2 [Moles/Vol] 25.5 mmol/L Normal 21.0-32.0 [facility] Comment on above: Performed By: #### C EZEKIEL, BMP ####[facility] [address] [place], [place] [address]Dr. Shahbaz Rogel Creatinine [Mass/Vol] 1.01 mg/dL Normal 0.55-1.02 [facility] Comment on above: Performed By: #### Cheri FALCON, BMP ####[facility] Anzcurndf[address] [place], [place] [address]Dr. Shahbaz Rogel EGFR-AF ZAMBIAN >60 Normal >=60 [facility] Comment on above: Performed By: #### C EZEKIEL, BMP ####[facility] Q[address] [place], [place] [address]Dr. Shahbaz Rogel EGFR-NON AF ZAMBIAN 56 mL/min/1.73m2 Critically low >=60 [facility] Comment on above: Performed By: #### Cheri FALCON, BMP ####[facility] [address] [place], [place] [address]Dr. Shahbaz Rogel Glucose [Mass/Vol] 105 mg/dL Normal 74-106 [facility] Comment on above: Performed By: #### Cheri FALCON, BMP ####[facility] [address] [place], [place] [address]Dr. Shahbaz Rogel Potassium [Moles/Vol] 3.8 mmol/L Normal 3.5-5.1 [facility] Comment on above: Performed By: #### C JOSSYM, BMP ####[facility] [address] [place], [place] [address]Dr. Shahbaz Juan F Sodium [Moles/Vol] 138 mmol/L Normal 136-145 [facility] Comment on above: Performed By: #### C MADM, BMP ####[facility] C[address] [place], [place] [address]Dr. Shahbaz Juan F Urea nitrogen [Mass/Vol] 9.0 mg/dL Normal 7.0-18.0 [facility] Comment on above: Performed By: #### C EZEKIEL, BMP ####[facility] [address] [place], [place] [address]Dr. Shahbaz Rogel Urea nitrogen/Creatinine [Mass ratio] 8.9 mg/mg Normal [facility] Comment on above: Performed By: #### C EZEKIEL, BMP ####[facility] Plywsazvpm[address] [place], [place] [address]Dr. Shahbaz Rogel XR CHEST 1 Von 01-02-2023 XR CHEST 1 V Normal [facility] INSULINon 11-02-2022 Insulin 6.0 uIU/mL Normal 2.6-24.9 [facility] Comment on above: Performed By: #### I NSULIN ####[facility] [address] [place], [place] [address]Dr. Shahbaz Rogel CBC AUTO DIFFon 11-01-2022 BASO # 0.0 103/ul Normal 0.0-0.1 [facility] Comment on above: Performed By: #### C BC ####[facility] [address] [place], [place] [address]Dr. Shahbaz Rogel Basophils/100 WBC (Bld) 0.5 % Normal 0.2-2.0 [facility] Comment on above: Performed By: #### C BC ####[facility] [address]toz[address] [place], [place] [address]Dr. Shahbaz Rogel EO # 0.2 103/ul Normal 0.0-0.7 [facility] Comment on above: Performed By: #### C BC ####[facility] [address] [place], [place] [id number]. Shahbaz Rogel Eosinophils/100 WBC (Bld) 5.2 % Normal 0.9-7.0 [facility] Comment on above: Performed By: #### C BC ####[facility] [address] [place], [place] [address]Dr. Shahbaz Rogel Erythrocyte distribution width (RBC) [Ratio] 12.7 % Normal 11.0-15.0 [facility] Comment on above: Performed By: #### C BC ####[facility] [address] [place], [place] [address]Dr. Shahbaz Rogel Hematocrit (Bld) [Volume fraction] 46.4 % Normal 36.0-48.0 [facility] Comment on above: Performed By: #### C BC ####[facility] [address] [place], [place] [address]Dr. Shahbaz Rogel Hemoglobin (Bld) [Mass/Vol] 14.9 g/dL Normal 12.0-16.0 [facility] Comment on above: Performed By: #### C BC ####[facility] [address] [place], [place] [address]Dr. Shahbaz Rogel IG # 0.00 10e3/ul Normal 0.00-0.03 [facility] Comment on above: Performed By: #### C BC ####[facility] Im[address] [place], [place] [address]Dr. Shahbaz Rogel IG % 0.0 % Normal 0.0-0.5 [facility] Comment on above: Performed By: #### C BC ####[facility] [address] [place], [place] [address]Dr. Shahbaz Rogel LYMPH # 1.1 103/ul Critically low 1.2-3.8 [facility] Comment on above: Performed By: #### C BC ####[facility] [address] [place], [place] [address]Dr. Shahbaz Rogel Lymphocytes/100 WBC (Bld) 25.5 % Normal 20.5-60.0 [facility] Comment on above: Performed By: #### C BC ####[facility] [address] [place] [address]Dr. Shahbaz Juan F MANUAL DIFF REQ NO Normal [facility] Comment on above: Performed By: #### C BC ####[facility] [address] [place] [address]Dr. Shahbaz Juan F MCH (RBC) [Entitic mass] 27.8 pg Normal 26.7-34.0 [facility] Comment on above: Performed By: #### C BC ####[facility] [address] [place] [address]Dr. Shahbaz Juan F MCHC (RBC) [Mass/Vol] 32.1 g/dL Normal 29.9-35.2 [facility] Comment on above: Performed By: #### C BC ####[facility] [address] [place] [address]Dr. Lilajarrod Rogel MCV (RBC) [Entitic vol] 86.6 fL Normal 81.0-99.0 [facility] Comment on above: Performed By: #### C BC ####[facility] [address] [place], [place] [address]Dr. Lilajarrod Rogel MONO # 0.2 103/ul Critically low 0.3-0.8 [facility] Comment on above: Performed By: #### C BC ####[facility] [address] [place], [place] [address]Dr. Shahbaz Rogel Monocytes/100 WBC (Bld) 5.4 % Normal 1.7-12.0 [facility] Comment on above: Performed By: #### C BC ####[facility] [address] [place] [address]Dr. Shahbaz Rogel NEUT # 2.7 103/ul Normal 1.4-6.5 [facility] Comment on above: Performed By: #### C BC ####[facility] [address] [place], [place] [address]Dr. Shahbaz Rogel Neutrophils/100 WBC (Bld) 63.4 % Normal 43.0-75.0 [facility] Comment on above: Performed By: #### C BC ####[facility] [address] [place] [address]Dr. Shahbaz Rogel Platelet mean volume (Bld) [Entitic vol] 9.4 fL Critically low 9.5-13.5 [facility] Comment on above: Performed By: #### C BC ####[facility] [address] [place] [address]Dr. Shahbaz Rogel PLT 216 103/ul Normal 150-450 [facility] Comment on above: Performed By: #### C BC ####[facility] [address] [place] [address]Dr. Shahbaz Rogel RBC 5.36 106/ul Normal 4.20-5.40 [facility] Comment on above: Performed By: #### C BC ####[facility] [address] [place], [place] [address]Dr. Shahbaz Rogel WBC 4.2 103/ul Normal 4.0-11.0 [facility] Comment on above: Performed By: #### C BC ####[facility] [address] [place] [address]Dr. Shahbaz Rogel FREE THYROXINE INDEX T7on FTI 2.92 Normal 1.30-4.50 [facility] Comment on above: Performed By: #### C MP, LIPID, T7, TSH ####[facility] [address] [place] [address]Dr. Shahbaz Rogel T3U 37.0 % Normal 30.0-39.0 [facility] Comment on above: Performed By: #### C MP, LIPID, T7, TSH ####[facility] [address] [place] [address]Dr. Shahbaz Rogel T4 [Mass/Vol] 7.90 ug/dL Normal 4.80-13.90 [facility] Comment on above: Performed By: #### C MP, LIPID, T7, TSH ####[facility] [address] [place] [address]Dr. Shahbaz Rogel GLYCOHEMOGLOBIN A1Con 2022 ADA RECOMMENDATION SEE BELOW Normal [facility] Comment on above: Result Comment: ADA RECOMMENDED LIMIT 4.0 - 6.0 ADA THERAPEUTIC TARGET < 7.0 ACTION SUGGESTED > 7.0 Performed By: #### A 1C ####[facility] [address] [place] [address]Dr. Shahbaz Rogel Glucose [Mass/Vol] 120 mg/dL Normal [facility] Comment on above: Performed By: #### A 1C ####[facility] By[address] [place], [place] [address]Dr. Shahbaz Rogel HbA1c (Bld) [Mass fraction] 5.8 % Normal 4.5-6.2 [facility] Comment on above: Performed By: #### A 1C ####[facility] [address] [place], [place] [address]Dr. Shahbaz Rogel IRONon 11-01-2022 Iron [Mass/Vol] 54.0 ug/dL Normal 50.0-170.0 [facility] Comment on above: Performed By: #### I GRIS ####[facility] [address] [place], [place] [address]Dr. Shahbaz Rogel LIPID PROFILEon 11-01-2022 CHOL-HDL RATIO NORM SEE BELOW Normal [facility] Comment on above: Result Comment: 3.3 - 4.4 LOW RISK 4.4 - 7.1 AVERAGE RISK 7.1 - 11.0 MODERATE RISK >11.0 HIGH RISK Performed By: #### C MP, LIPID, T7, TSH ####[facility] [address] [place], [place] [address]Dr. Shahbaz Rogel Cholesterol [Mass/Vol] 203 mg/dL Critically high <=200 [facility] Comment on above: Performed By: #### C MP, LIPID, T7, TSH ####[facility] [address] [place], [place] [address]Dr. Shahbaz Rogel Cholesterol in HDL [Mass/Vol] 42 mg/dL Normal 40-60 [facility] Comment on above: Performed By: #### C MP, LIPID, T7, TSH ####[facility] [address] [place] [address]Dr. Shahbaz Rogel Cholesterol in LDL [Mass/Vol] 121.4 mg/dL Normal [facility] Comment on above: Performed By: #### C MP, LIPID, T7, TSH ####[facility] [address] [place] [id number]. Shahbaz Rogel Cholesterol.total/Chol esterol in HDL [Mass ratio] 4.8 {ratio} Normal [facility] Comment on above: Performed By: #### C MP, LIPID, T7, TSH ####[facility] [address] [place] [id number]. Shahbaz Rogel HDL NORMAL > or = 60 mg/dl - LO W CARDIOVASCULAR RISK <40 mg/dl - HIGH CARDIOVASCULAR RISK Normal [facility] Comment on above: Performed By: #### C MP, LIPID, T7, TSH ####[facility] [address] [place] [address]Dr. Shahbaz Rogel LDL CALC NORMAL SEE BELOW Normal [facility] Comment on above: Result Comment: <100 mg/dl OPTIMAL 100 - 129 mg/dl NEAR OR ABOVE OPTIMAL 130 - 159 mg/dl BORDERLINE HIGH 160 - 189 mg/dl HIGH >190 mg/dl VERY HIGH Performed By: #### C MP, LIPID, T7, TSH ####[facility] [address] [place] [id number]. Shahbaz Rogel Triglyceride [Mass/Vol] 198 mg/dL Critically high <=150 [facility] Comment on above: Performed By: #### C MP, LIPID, T7, TSH ####[facility] [address] [place] [phone]. Shahbaz Rogel VLDL CALC 39.6 mg/dL Normal [facility] Comment on above: Performed By: #### C MP, LIPID, T7, TSH ####[facility] [address] [place] [phone]. Shahbaz Rogel PROF 14(COMP METB)on 023 Albumin [Mass/Vol] 4.1 g/dL Normal 3.4-5.0 [facility] Comment on above: Performed By: #### C MP, LIPID, T7, TSH ####[facility] [address] [place] [phone]. Shahbaz Rogel Albumin/Globulin [Mass ratio] 1.0 {ratio} Normal [facility] Comment on above: Performed By: #### C MP, LIPID, T7, TSH ####[facility] [address] [place] [address]Dr. Shahbaz Rogel ALP [Catalytic activity/Vol] 126 U/L Critically high 46-116 [facility] Comment on above: Performed By: #### C MP, LIPID, T7, TSH ####[facility] [address] [place] [address]Dr. Shahbaz Rogel ALT [Catalytic activity/Vol] 30 U/L Normal 14-59 [facility] Comment on above: Performed By: #### C MP, LIPID, T7, TSH ####[facility] [address] [place] [address]Dr. Shahbaz Rogel Anion gap [Moles/Vol] 12.3 mmol/L Normal Th [facility] Comment on above: Performed By: #### C MP, LIPID, T7, TSH ####[facility] [address] [place], [place] [address]Dr. Shahbaz Rogel AST [Catalytic activity/Vol] 25 U/L Normal 15-37 [facility] Comment on above: Performed By: #### C MP, LIPID, T7, TSH ####[facility] [address] [place] [address]Dr. Shahbaz Rogel Bilirubin [Mass/Vol] 0.5 mg/dL Normal 0.2-1.0 [facility] Comment on above: Performed By: #### C MP, LIPID, T7, TSH ####[facility] [address] [place] [address]Dr. Shahbaz Rogel Calcium [Mass/Vol] 9.4 mg/dL Normal 8.5-10.1 [facility] Comment on above: Performed By: #### C MP, LIPID, T7, TSH ####[facility] [address] [place] [address]Dr. Shahbaz Rogel Chloride [Moles/Vol] 104 mmol/L Normal 98-107 [facility] Comment on above: Performed By: #### C MP, LIPID, T7, TSH ####[facility] [address] [place] [phone]. Shahbaz Rogel CO2 [Moles/Vol] 29.6 mmol/L Normal 21.0-32.0 [facility] Comment on above: Performed By: #### C MP, LIPID, T7, TSH ####[facility] [address] [place] [phone]. Shahbza Rogel Creatinine [Mass/Vol] 0.91 mg/dL Normal 0.55-1.02 [facility] Comment on above: Performed By: #### C MP, LIPID, T7, TSH ####[facility] [address] [place] [phone]. Shahbaz Rogel EGFR-AF ZAMBIAN >60 Normal >=60 [facility] Comment on above: Performed By: #### C MP, LIPID, T7, TSH ####[facility] [address] [place] [address]Dr. Shahbaz Juan F EGFR-NON AF ZAMBIAN >60 Normal >=60 [facility] Comment on above: Performed By: #### C MP, LIPID, T7, TSH ####[facility] [address] [place] [phone]. Shahbaz Rogel Globulin (S) [Mass/Vol] 4.0 g/dL Normal [facility] Comment on above: Performed By: #### C MP, LIPID, T7, TSH ####[facility] [address] [place] [phone]. Shahbaz Rogel Glucose [Mass/Vol] 85 mg/dL Normal 74-106 [facility] Comment on above: Performed By: #### C MP, LIPID, T7, TSH ####[facility] [address]le[address] [place] [phone]. Shahbaz Rogel Potassium [Moles/Vol] 3.9 mmol/L Normal 3.5-5.1 [facility] Comment on above: Performed By: #### C MP, LIPID, T7, TSH ####[facility] [address] [place] [phone]. Lilajarrod Rogel Protein [Mass/Vol] 8.1 g/dL Normal 6.4-8.2 [facility] Comment on above: Performed By: #### C MP, LIPID, T7, TSH ####[facility] [address] [place] [address]Dr. Shahbaz Rogel Sodium [Moles/Vol] 142 mmol/L Normal 136-145 [facility] Comment on above: Performed By: #### C MP, LIPID, T7, TSH ####[facility] [address] [place] [address]Dr. Shahbaz Rogel Urea nitrogen [Mass/Vol] 9.0 mg/dL Normal 7.0-18.0 [facility] Comment on above: Performed By: #### C MP, LIPID, T7, TSH ####[facility] [address] [place], [place] [address]Dr. Shahbaz Rogel Urea nitrogen/Creatinine [Mass ratio] 9.9 mg/mg Normal [facility] Comment on above: Performed By: #### C MP, LIPID, T7, TSH ####[facility] [address] [place], [place] [address]Dr. Shahbaz Rogel TSHon 11-01-2022 TSH 0.045 uIU/mL Critically low 0.358-3.74 0 [facility] Comment on above: Performed By: #### C MP, LIPID, T7, TSH ####[facility] [address] [place] [address]Dr. Shahbaz Rogel XR HUMERUS LT MIN 2Von 10-01 XR HUMERUS LT MIN 2V Normal [facility] XR LSPINE 2_3 VIEWSon 2021 XR LSPINE 2_[address] [facility] XR CHEST 1 Von 08-25-2022 XR CHEST 1 V Normal [facility] ACID FAST SMEAR AND CXon Acid Fast Culture Negative Normal [facility] Comment on above: Result Comment: No a ninfa fast bacilli isolated after 6 weeks. Performed By: #### A FB ####[facility] [address] [place] [address]Dr. Shahbaz Rogel Acid Fast Smear Negative Normal [facility] Comment on above: Performed By: #### A FB ####[facility] [address] [place], [place] [address]Th. Shahbaz Rogel [employer] Specimen Processing Concentration Normal [facility] Comment on above: Performed By: #### A FB ####[facility] [address] [place], [place] [address]Cj. Shahbaz Rogel Bacteria identified Anaer cx Nom (Unsp spec)Ordered By: Rodolfo Harley on 08-13-2022 Anaerobic microbial culture No Anaerobes Isolated 3 Days [facility] Basophils Auto (Bld) [#/Vol] Ordered By: Rodolfo Harley on 08-12-2022 Basophils (Bld) [#/Vol] 0.0 10*3/uL 0.0-0.2 [facility] Basophils/100 WBC Auto (Bld) Ordered By: Rodolfo Harley on 08-12-2022 Basophils/100 WBC (Bld) 0.4 % . [facility] Creatinine and Glomerular fi ltration rate.predicted panel (S/P/Bld)Ordered By: Rodolfo Harley on 08-12-2022 Creatinine [Mass/Vol] 0.74 mg/dL 0.44-1.03 [facility] Eosinophils Auto (Bld) [#/Vo l]Ordered By: Rodolfo Harley on 08-12-2022 Eosinophils (Bld) [#/Vol] 0.0 10*3/uL 0.0-0.45 [facility] Eosinophils/100 WBC Auto (Bl d)Ordered By: Rodolfo Harley on 08-12-2022 Eosinophils/100 WBC (Bld) 0.0 % . [facility] Erythrocyte distribution wid th Auto (RBC) [Ratio]Ordered By: Rodolfo Harley on 08-12-2022 Erythrocyte distribution width (RBC) [Ratio] 14.2 % 11.9-15.3 [facility] Estimated glomerular filtrat ion rate (GFR) non- AmericanOrdered By: Rodolfo Harley on 08-12-2022 GFR/1.73 sq M.predicted among non-blacks MDRD (S/P/Bld) [Vol rate/Area] > 60 mL/Min [facility] Hematocrit Auto (Bld) [Volum e fraction]Ordered By: Rodolfo Harley on 08-12-2022 Hematocrit (Bld) [Volume fraction] 38.0 % 34.0-46.4 [facility] Hemoglobin [Mass/volume] in BloodOrdered By: Rodolfo Harley on 08-12-2022 Hemoglobin (Bld) [Mass/Vol] 12.5 g/dL 11.8-15.4 [facility] Laboratory - Hematology and Cell countsOrdered By: Rodolfo Harley on 08-12-2022 Nucleated RBC/100 WBC (Bld) [Ratio] 0.1 % 0-0.5 [facility] Leukocytes [#/volume] in Blo od by Automated countOrdered By: Rodolfo Harley on 08-12-2022 WBC (Bld) [#/Vol] 5.8 10*3/uL 4.5-11.0 [facility] Lymphocytes Auto (Bld) [#/Vo l]Ordered By: Rodolfo Harley on 08-12-2022 Lymphocytes (Bld) [#/Vol] 0.7 10*3/uL 1.00-4.8 [facility] Lymphocytes/100 WBC Auto (Bl d)Ordered By: Rodolfo Harley on 08-12-2022 Lymphocytes/100 WBC (Bld) 11.4 % . [facility] MCH Auto (RBC) [Entitic mass ]Ordered By: Rodolfo Harley on 08-12-2022 MCH (RBC) [Entitic mass] 28.1 pg 24.7-34.3 [facility] MCHC Auto (RBC) [Mass/Vol]Or dered By: Rodolfo Harley on 08-12-2022 MCHC (RBC) [Mass/Vol] 32.9 g/dL 32.0-35.0 [facility] MCV Auto (RBC) [Entitic vol] Ordered By: Rodolfo Harley on 08-12-2022 MCV (RBC) [Entitic vol] 85.4 fL 80-100 [facility] Monocytes Auto (Bld) [#/Vol] Ordered By: Rodolfo Harley on 08-12-2022 Monocytes (Bld) [#/Vol] 0.3 10*3/uL 0.0-0.8 [facility] Monocytes/100 WBC Auto (Bld) Ordered By: Rodolfo Harley on 08-12-2022 Monocytes/100 WBC (Bld) 4.8 % . [facility] Neutrophils Auto (Bld) [#/Vo l]Ordered By: Rodolfo Harley on 08-12-2022 Neutrophils (Bld) [#/Vol] 4.8 10*3/uL 1.8-7.7 [facility] Neutrophils/100 WBC Auto (Bl d)Ordered By: Rodolfo Harley on 08-12-2022 Neutrophils/100 WBC (Bld) 83.4 % . [facility] No Panel InformationOrdered By: Rodolfo Harley on 08-12-2022 Estimated GFR () > 60 mL/Min [facility] Comment on above: GFR estimated refere nce range: According to KDOQI guidelines, <60 ml/min/1.73m2 is sufficient to diagnose a patient with chronic kidney disease. Pharmacy Creatinine Clearance (Chem 59.45 [facility] Platelet mean volume Auto (B ld) [Entitic vol]Ordered By: Rodolfo Harley on 08-12-2022 Platelet mean volume (Bld) [Entitic vol] 7.9 fL 6.3-10.7 [facility] Platelets Auto (Bld) [#/Vol] Ordered By: Rodolfo Harley on 08-12-2022 Platelets (Bld) [#/Vol] 196 10*3/uL 150-450 [facility] RBC Auto (Bld) [#/Vol]Ordere d By: Rodolfo Harley on 08-12-2022 RBC (Bld) [#/Vol] 4.45 10*6/uL 3.60-5.00 [facility] Serum or plasma anion gap de terminationOrdered By: Rodolfo Harley on 08-12-2022 Anion gap [Moles/Vol] 7.5 mmol/L 6.0-15.0 [facility] Serum or plasma calcium dagoberto urement (mass/volume)Ordered By: Rodolfo Harley on 08-12-2022 Calcium [Mass/Vol] 8.7 mg/dL 8.2-10.2 [facility] Serum or plasma chloride anahy surement (moles/volume)Ordered By: Rodolfo Harley on 08-12-2022 Chloride [Moles/Vol] 108 mmol/L 95-114 [facility] Serum or plasma glucose dagoberto urement (mass/volume)Ordered By: Rodolfo Harley on 08-12-2022 Glucose [Mass/Vol] 133 mg/dL 70-100 [facility] Comment on above: ADA recommended refe rence rangeRandom Glucose Reference Range is dependent on time and content of last meal. Glucose of more than 200 mg/dL in a nonstressed, ambulatory subject supports the diagnosis of Diabetes Mellitus. Serum or plasma potassium me asurement (moles/volume)Ordered By: Rodolfo Harley on 08-12-2022 Potassium [Moles/Vol] 3.7 mmol/L 3.5-5.1 [facility] Serum or plasma sodium measu rement (moles/volume)Ordered By: Rodolfo Harley on 08-12-2022 Sodium [Moles/Vol] 139 mmol/L 136-146 [facility] Serum or plasma total carbon dioxide measurement (moles/volume)Ordered By: Rodolfo Harley on 08-12-2022 CO2 [Moles/Vol] 27.2 mmol/L 22.0-30.0 [facility] Serum or plasma urea nitroge n measurement (mass/volume)Ordered By: Rodolfo Harley on 08-12-2022 Urea nitrogen [Mass/Vol] 14 mg/dL 9-23 [facility] ABO and Rh group post transf usion reaction Nom (Bld)Ordered By: Rodolfo Harley on 08-10-2022 Microscopic observation Gram stain Nom (Unsp spec) [facility] AF[employer] cultureOrdered By: Sissy Harley on 08-10-2022 Mycobacterium sp identified Org specific cx Nom (Unsp spec) [facility] AF[employer] smearOrdered By: Rodolfo Harley on 08-10-2022 Microscopic observation Smear Nom (Unsp spec) [facility] Aerobic cultureOrdered By: Margie Harley on 08-10-2022 Bacteria identified Aer cx Nom (Unsp spec) No Growth 2 Days [facility] Anaerobic cultureOrdered By: Rodolfo Harley on 08-10-2022 Bacteria identified Anaer cx Nom (Unsp spec) No Anaerobes Isolated 3 Days [facility] Arterial blood standard base excess determination by calculationOrdered By: Rodolfo Harley on 08-10-2022 Base excess standard Calc (BldA) [Moles/Vol] 5 mmol/L -2-3 [facility] Blood carbon dioxide, total measurement by calculation (moles/volume)Ordered By: Rodolfo Harley on 08-10-2022 CO2 Calc (Bld) [Moles/Vol] 30 mmol/L 23-[address] [facility] [address] biopsyOrdered By: Rodolfo Harley on 08-10-2022 Hematocrit (Bld) [Volume fraction] 40.0 % 38.0-51.0 [facility] Fungal cultureOrdered By: Rolanda Harley on 08-10-2022 Fungus identified Cx Nom (Unsp spec) [facility] Glucose Glucometer (BldC) [M ass/Vol]Ordered By: Rodolfo Harley on 08-10-2022 Glucose [Mass/Vol] 126 mg/dL 70-105 [facility] Gram stain for investigation of transfusion reactionOrdered By: Rodolfo Harley on 08-10-2022 Microscopic observation Gram stain Nom (Unsp spec) [facility] Hemoglobin Calc (Bld) [Mass/ Vol]Ordered By: Rodolfo Harley on 08-10-2022 Hemoglobin (Bld) [Mass/Vol] 13.6 g/dL 12.0-17.0 [facility] Monocyte %Ordered By: Jean Harley on 08-10-2022 Monocyte % 39.9 mm[Hg] 35-51 [facility] Monocyte % 45 mm[Hg] 80-105 [facility] No Panel InformationOrdered By: Rodolfo Harley on 08-10-2022 Chlamydia psittaci Antibodies <1:10 Neg:<1:10 [facility] Comment on above: This test was develo ped and its performance characteristicsdetermined by [facility] [employer] [employer]. It has not been cleared or approvedby the Food and Drug Administration. The FDA hasdetermined that such clearance or approval is notnecessary.Performed at: [address] [id number] Director: Shelly Vargas MD, Phone: [phone] Potassium (Bld) [Moles/Vol]O rdered By: Rodolfo Harley on 08-10-2022 Potassium [Moles/Vol] 3.8 mmol/L 3.5-4.9 [facility] Sodium (Bld) [Moles/Vol]Orde red By: Rodolfo Harley on 08-10-2022 Sodium [Moles/Vol] 141 mmol/L 138-146 [facility] Whole blood bicarbonate dagoberto urementOrdered By: Rodolfo Harley on 08-10-2022 HCO3 (Bld) [Moles/Vol] 29.1 mmol/L 22.0-28.0 [facility] Whole blood ionized calcium measurement (moles/volume)Ordered By: Rodolfo Harley on 08-10-2022 Calcium.ionized (Bld) [Moles/Vol] 1280 mmol/L 1.12-1.32 [facility] Whole blood oxygen saturatio n measurementOrdered By: Rodolfo Harley on 08-10-2022 Oxygen saturation in Blood 84 % 95-98 [facility] Comment on above: Reference ranges ref lect baseline specimens only Whole blood pHOrdered By: Rolanda Harley on 08-10-2022 pH (Bld) 7.470 Units 7.31-7.45 [facility] Urine culture routineOrdered By: Rodolfo Harley on 08-07-2022 Bacteria identified Cx Nom (U) 2 Days [facility] Activated partial thrombopla stin time (aPTT) in platelet poor plasma by coagulation aOrdered By: Rodolfo Harley on 08-05-2022 aPTT Coag (PPP) [Time] 35.9 s 25.1-36.5 [facility] Basophils Auto (Bld) [#/Vol] Ordered By: Rodolfo Harley on 08-05-2022 Basophils (Bld) [#/Vol] 0.0 10*3/uL 0.0-0.2 [facility] Basophils/100 WBC Auto (Bld) Ordered By: Rodolfo Harley on 08-05-2022 Basophils/100 WBC (Bld) 0.5 % . [facility] Body fluid albumin measureme nt (mass/volume)Ordered By: Rodolfo Harley on 08-05-2022 Albumin (Body fld) [Mass/Vol] 3.8 g/dL 3.2-5.5 [facility] COVID-19 Positive/NegativeOr dered By: Rodolfo Harley on 08-05-2022 SARS-CoV-2 (COVID-19) N gene PAVAN+probe Ql (Resp) Negative Negative [facility] Comment on above: Testing for SARS-CoV -2 by RT-PCRThis test was developed and its performance characteristics determined by [employer] and validated at the [facility]. This test has not been FDA cleared or approved. This test has been authorized by FDA under an Emergency Use Authorization (EUA). This test has been validated in accordance with the FDA's Guidance Document (Policy for Diagnostics Testing in Laboratories Certified to Perform High Complexity Testing under CLIA prior to Emergency Use Authorization for Coronavirus Disease-2019 during the Public Health Emergency) issued on January 02, 2020. This test is only authorized for the duration of time the declaration that circumstances exist justifying the authorization of the emergency use of in vitro diagnostic tests for detection of SARS-CoV-2 virus and/or diagnosis of COVID-19 infection under section 564(b)(1) of the Act, 21 U.S.C. 360bbb-3(b)(1), unless the authorization is terminated or revoked sooner. Creatinine and Glomerular fi ltration rate.predicted panel (S/P/Bld)Ordered By: Rodolfo Harley on 08-05-2022 Creatinine [Mass/Vol] 0.97 mg/dL 0.44-1.03 [facility] Eosinophils Auto (Bld) [#/Vo l]Ordered By: Rodolfo Harley on 08-05-2022 Eosinophils (Bld) [#/Vol] 0.2 10*3/uL 0.0-0.45 [facility] Eosinophils/100 WBC Auto (Bl d)Ordered By: Rodolfo Harley on 08-05-2022 Eosinophils/100 WBC (Bld) 4.9 % . [facility] Erythrocyte distribution wid th Auto (RBC) [Ratio]Ordered By: Rodolfo Harley on 08-05-2022 Erythrocyte distribution width (RBC) [Ratio] 14.5 % 11.9-15.3 [facility] Estimated glomerular filtrat ion rate (GFR) non- AmericanOrdered By: Rodolfo Harley on 08-05-2022 GFR/1.73 sq M.predicted among non-blacks MDRD (S/P/Bld) [Vol rate/Area] 59 mL/Min [facility] FUNGAL CULTUREon 08-05-2022 Fungus (Mycology) Culture Final report Abnormal [facility] Comment on above: Performed By: #### C XFUN ####[facility] [address] [place] [address]Dr. Shahbaz Rogel Fungus Stain Final report Normal [facility] Comment on above: Performed By: #### C XFUN ####[facility] [address] [place] [address]Dr. Shahbaz Rogel Result 1 Comment Abnormal [facility] Comment on above: Result Comment: MILADYS/ Calcofluor preparation: no fungus observed. Performed By: #### C XFUN ####[facility] [address] [place] [address]Dr. Shahbaz Rogel Result Comment: Aspe rgillus versicolor Result 2 Penicillium species Abnormal [facility] Comment on above: Performed By: #### C XFUN ####[facility] [address] [place] [address]Dr. Shahbaz Rogel Globulin Calc (S) [Mass/Vol] Ordered By: Rodolfo Harley on 08-05-2022 Globulin (S) [Mass/Vol] 2.9 g/dL [facility] Hematocrit Auto (Bld) [Volum e fraction]Ordered By: Rodolfo Harley on 08-05-2022 Hematocrit (Bld) [Volume fraction] 43.3 % 34.0-46.4 [facility] Hemoglobin [Mass/volume] in BloodOrdered By: Rodolfo Harley on 08-05-2022 Hemoglobin (Bld) [Mass/Vol] 14.3 g/dL 11.8-15.4 [facility] Laboratory - CoagulationOrde red By: Rodolfo Harley on 08-05-2022 PT Coag (PPP) [Time] 12.4 s 9.0-12.9 [facility] - Hematology and Cell countsOrdered By: Rodolfo Harley on 08-05-2022 Nucleated RBC/100 WBC (Bld) [Ratio] 0.0 % 0-0.5 [facility] Leukocytes [#/volume] in Blo od by Automated countOrdered By: Rodolfo Harley on 08-05-2022 WBC (Bld) [#/Vol] 3.4 10*3/uL 4.5-11.0 [facility] Lymphocytes Auto (Bld) [#/Vo l]Ordered By: Rodolfo Harley on 08-05-2022 Lymphocytes (Bld) [#/Vol] 0.9 10*3/uL 1.00-4.8 [facility] Lymphocytes/100 WBC Auto (Bl d)Ordered By: Rodolfo Harley on 08-05-2022 Lymphocytes/100 WBC (Bld) 27.2 % . [facility] MCH Auto (RBC) [Entitic mass ]Ordered By: Rodolfo Harley on 08-05-2022 MCH (RBC) [Entitic mass] 28.4 pg 24.7-34.3 [facility] MCHC Auto (RBC) [Mass/Vol]Or dered By: Rodolfo Harley on 08-05-2022 MCHC (RBC) [Mass/Vol] 33.1 g/dL 32.0-35.0 [facility] MCV Auto (RBC) [Entitic vol] Ordered By: Rodolfo Harley on 08-05-2022 MCV (RBC) [Entitic vol] 85.9 fL 80-100 [facility] Monocytes Auto (Bld) [#/Vol] Ordered By: Rodolfo Harley on 08-05-2022 Monocytes (Bld) [#/Vol] 0.3 10*3/uL 0.0-0.8 [facility] Monocytes/100 WBC Auto (Bld) Ordered By: Rodolfo Harley on 08-05-2022 Monocytes/100 WBC (Bld) 7.5 % . [facility] Neutrophils Auto (Bld) [#/Vo l]Ordered By: Rodolfo Harley on 08-05-2022 Neutrophils (Bld) [#/Vol] 2.0 10*3/uL 1.8-7.7 [facility] Neutrophils/100 WBC Auto (Bl d)Ordered By: Rodolfo Harley on 08-05-2022 Neutrophils/100 WBC (Bld) 59.9 % . [facility] No Panel InformationOrdered By: Rodolfo Harley on 08-05-2022 Estimated GFR () > 60 mL/Min [facility] Comment on above: GFR estimated refere nce range: According to KDOQI guidelines, <60 ml/min/1.73m2 is sufficient to diagnose a patient with chronic kidney disease. Pharmacy Creatinine Clearance (Chem N/A [facility] Platelet mean volume Auto (B ld) [Entitic vol]Ordered By: Rodolfo Harley on 08-05-2022 Platelet mean volume (Bld) [Entitic vol] 8.1 fL 6.3-10.7 [facility] Platelet poor plasma interna tional normalized ratio (INR) by coagulation assay (relatOrdered By: Rodolfo Harley on 08-05-2022 INR Coag (PPP) [Relative time] 1.1 {INR} [facility] Comment on above: INR Therapeutic Rang e A) Pre- and Peroperative OAT started two weeks before surgery. NOT HIP SURGERY: 1.5 - 2.5 HIP SURGERY: 2 - 3B) Primary and secondary prevention of venous THROMBOSIS: 2 - 3C) Active venous thrombosis, pulmonary embolismand prevention of recurrent venous thrombosis: 2 - 3D) Prevention of arterial thromboembolismincluding patients with mechanical heart valves: 3 - 4.5 Platelets Auto (Bld) [#/Vol] Ordered By: Rodolfo Harley on 08-05-2022 Platelets (Bld) [#/Vol] 243 10*3/uL 150-450 [facility] Protein [Mass/volume] in Ser um or PlasmaOrdered By: Rodolfo Harley on 08-05-2022 Protein [Mass/Vol] 6.7 g/dL 6.1-7.9 [facility] RBC Auto (Bld) [#/Vol]Ordere d By: Rodolfo Harley on 08-05-2022 RBC (Bld) [#/Vol] 5.04 10*6/uL 3.60-5.00 [facility] Serum or plasma alanine snyder otransferase measurement without P-5'-P (enzymatic activiOrdered By: Rodolfo Harley on 08-05-2022 ALT No additional P-5'-P [Catalytic activity/Vol] 14 U/L 10-60 [facility] Serum or plasma albumin/glob ulin mass ratioOrdered By: Rodolfo Harley on 08-05-2022 Albumin/Globulin [Mass ratio] 1.3 {ratio} [facility] Serum or plasma alkaline sruthi sphatase measurement (enzymatic activity/volume)Ordered By: Rodolfo Harley on 08-05-2022 ALP [Catalytic activity/Vol] 91 U/L 32-92 [facility] Serum or plasma anion gap de terminationOrdered By: Rodolfo Harley on 08-05-2022 Anion gap [Moles/Vol] 14.3 mmol/L 6.0-15.0 [facility] Serum or plasma aspartate am inotransferase measurement (enzymatic activity/volume)Ordered By: Rodolfo Harley on 08-05-2022 AST [Catalytic activity/Vol] 21 U/L 10-42 [facility] Serum or plasma calcium dagoberto urement (mass/volume)Ordered By: Rodolfo Harley on 08-05-2022 Calcium [Mass/Vol] 9.5 mg/dL 8.2-10.2 [facility] Serum or plasma chloride anahy surement (moles/volume)Ordered By: Rodolfo Harley on 08-05-2022 Chloride [Moles/Vol] 102 mmol/L 95-114 [facility] Serum or plasma glucose dagoberto urement (mass/volume)Ordered By: Rodolfo Harley on 08-05-2022 Glucose [Mass/Vol] 76 mg/dL 70-100 [facility] Comment on above: ADA recommended refe rence rangeRandom Glucose Reference Range is dependent on time and content of last meal. Glucose of more than 200 mg/dL in a nonstressed, ambulatory subject supports the diagnosis of Diabetes Mellitus. Serum or plasma potassium me asurement (moles/volume)Ordered By: Rodolfo Harley on 08-05-2022 Potassium [Moles/Vol] 3.8 mmol/L 3.5-5.1 [facility] Serum or plasma sodium measu rement (moles/volume)Ordered By: Rodolfo Harley on 08-05-2022 Sodium [Moles/Vol] 138 mmol/L 136-146 [facility] Serum or plasma total biliru bin measurement (mass/volume)Ordered By: Rdoolfo Harley on 08-05-2022 Bilirubin [Mass/Vol] 0.7 mg/dL 0.3-1.2 [facility] Serum or plasma total carbon dioxide measurement (moles/volume)Ordered By: Rodolfo Harley on 08-05-2022 CO2 [Moles/Vol] 25.5 mmol/L 22.0-30.0 [facility] Serum or plasma urea nitroge n measurement (mass/volume)Ordered By: Rodolfo Harley on 08-05-2022 Urea nitrogen [Mass/Vol] 12 mg/dL - [facility] Urine culture routineOrdered By: Rodolfo Harley on 08-05-2022 Bacteria identified Cx Nom (U) 2 Days [facility] XR ANKLE LT MIN 3 Von 2021 XR ANKLE LT MIN [address] [facility] BNPon 07-06-2022 Natriuretic peptide B (Bld) [Mass/Vol] 843.0 pg/mL Normal <=900.0 [facility] Comment on above: Performed By: #### B SECRET SERVICE AGENT, CRP, CMP ####[facility] [address] [place] [address]Dr. Shahbaz Rogel CBC W MANUAL DIFFon 07-06-20 22 ATYPICAL LYMPH # Normal [facility] Comment on above: Performed By: #### C CAIN ####[facility] [address] [place] [id number]. Shahbaz Rogel ATYPICAL LYMPH % Normal [facility] Comment on above: Performed By: #### C BCBRICE ####[facility] [address] [place] [address]Dr. Shahbaz Rogel BAND # 0.0 103/ul Normal 0.0-0.3 [facility] Comment on above: Performed By: #### C CAIN ####[facility] [address] [place] [address]Dr. Shahbaz Rogel BAND % 0 % Normal 0-5 [facility] Comment on above: Performed By: #### C BCMAN ####[facility] [address] [place] [address]Dr. Shahbaz Rogel BASOM # 0.00 103/ul Normal 0.00-0.10 [facility] Comment on above: Performed By: #### C BCMAN ####[facility] [address] [place] [address]Dr. Shahbaz Rogel BASOM % 0.0 % Critically low 0.2-2.0 [facility] Comment on above: Performed By: #### C BCMAN ####[facility] [address] [place] [address]Dr. Shahbaz Rogel BLAST # Normal [facility] Comment on above: Performed By: #### C BCBRICE ####[facility] [address] [place], [place] [address]Dr. Shahbaz Rogel BLAST % Normal [facility] Comment on above: Performed By: #### C BCBRICE ####[facility] [address] [place], [place] [address]Dr. Shahbaz Rogel CORRECTED WBC Normal 4.0-11.0 [facility] Comment on above: Performed By: #### C BCMAN ####[facility] [address] [place], [place] [address]Dr. Shahbaz Rogel EOS # 0.00 103/ul Normal 0.00-0.70 [facility] Comment on above: Performed By: #### C BCBRICE ####[facility] [address] [place] [address]Dr. Shahbaz Rogel EOS% 0.0 % Critically low 0.9-7.0 [facility] Comment on above: Performed By: #### C BCMAN ####[facility] [address] [place], [place] [address]Dr. Shahbaz Rogel HCT 40.3 % Normal 36.0-48.0 [facility] Comment on above: Performed By: #### C BCBRICE ####[facility] [address] [place], [place] [address]Dr. Shahbaz Rogel HGB 12.7 g/dl Normal 12.0-16.0 [facility] Comment on above: Performed By: #### C CAIN ####[facility] [address] [place] [address]Dr. Shahbaz Rogel LYMPHM # 0.41 103/ul Critically low 1.20-3.80 [facility] Comment on above: Performed By: #### C CAIN ####[facility] [address] [place] [address]Dr. Shahbaz Rogel LYMPHM% 7.0 % Critically low 20.5-60.0 [facility] Comment on above: Performed By: #### Cheri BARLOW ####[facility] [address] [place] [address]Dr. Shahbaz Rogel MCH 28.0 pg Normal 26.7-34.0 [facility] Comment on above: Performed By: #### Cheri BARLOW ####[facility] [address] [place], [place] [address]Dr. Shahbaz Rogel MCHC 31.5 g/dl Normal 29.9-35.2 [facility] Comment on above: Performed By: #### Cheri BARLOW ####[facility] [address] [place] [address]Dr. Shahbaz Rogel MCV 89.0 fL Normal 81.0-99.0 [facility] Comment on above: Performed By: #### Cheri BARLOW ####[facility] [address] [place], [place] [address]Dr. Shahbaz Rogel METAMYELOCYTE # Normal [facility] Comment on above: Performed By: #### Cheri BARLOW ####[facility] [address]uv[address] [place] [address]Dr. Shahbaz Rogel METAMYELOCYTE % Normal [facility] Comment on above: Performed By: #### C CAIN ####[facility] [address]tx[address] [place] [address]Dr. Shahbaz Rogel MONOM# 0.00 103/ul Critically low 0.30-0.80 [facility] Comment on above: Performed By: #### C CAIN ####[facility] [address] [place] [phone]. Shahbaz Rogel MONOM% 0.0 % Critically low 1.7-12.0 [facility] Comment on above: Performed By: #### C CAIN ####[facility] [address] [place] [phone]. Shahbaz Rogel MPV 9.8 fL Normal 9.5-13.5 [facility] Comment on above: Performed By: #### C CAIN ####[facility] [address]icy[address] [place] [phone]. Shahbaz Rgoel MYELOCYTE # Normal [facility] Comment on above: Performed By: #### C CAIN ####[facility] Se[address]rxpe[address] [place] [phone]. Shahbaz Rogel MYELOCYTE % Normal [facility] Comment on above: Performed By: #### Cheri BARLOW ####[facility] [address] [place], [place] [address]Dr. Shahbaz Rogel NRBC Normal [facility] Comment on above: Performed By: #### C CAIN ####[facility] X[address] [place] [phone]. Shahbaz Rogel PLT 187 103/ul Normal 150-450 [facility] Comment on above: Performed By: #### C CAIN ####[facility] [address]one[address] [place] [phone]. Shahbaz Rogel RBC 4.53 106/ul Normal 4.20-5.40 [facility] Comment on above: Performed By: #### C CAIN ####[facility] [address]cpdie[address] [place] [phone]. Shahbaz Rogel RDW 13.3 % Normal 11.0-15.0 [facility] Comment on above: Performed By: #### C CAIN ####[facility] Busacks[address] [place] [phone]. Shahbaz Rogel SEG # 5.49 103/ul Normal 1.40-6.50 [facility] Comment on above: Performed By: #### C CAIN ####[facility] [address]cuyp[address] [place] [address]Dr. Shahbaz Rogel SEG % 93.0 % Critically high 43.0-75.0 [facility] Comment on above: Performed By: #### C CAIN ####[facility] Ct[address]molung[address] [place] [address]Dr. Shahbaz Rogel WBC 5.9 103/ul Normal 4.0-11.0 [facility] Comment on above: Performed By: #### C CAIN ####[facility] [address]vrvxb[address] [place] [address]Dr. Shahbaz Rogel CRPon 07-06-2022 CRP [Mass/Vol] mg/L Normal <=1.0 [facility] Comment on above: Performed By: #### B SECRET SERVICE AGENT, CRP, CMP ####[facility] [address] [place], [place] [address]Dr. Shahbaz Rogel PROF 14(COMP METB)on 022 Albumin [Mass/Vol] 3.4 g/dL Normal 3.4-5.0 [facility] Comment on above: Performed By: #### B SECRET SERVICE AGENT, CRP, CMP ####[facility] Rmfoazvaeu[address] [place], [place] [address]Dr. Shahbaz Rogel Albumin/Globulin [Mass ratio] 1.0 {ratio} Normal [facility] Comment on above: Performed By: #### B SECRET SERVICE AGENT, CRP, CMP ####[facility] [address]sc[address] [place], [place] [address]Dr. Shahbaz Rogel ALP [Catalytic activity/Vol] 92 U/L Normal 46-116 [facility] Comment on above: Performed By: #### B SECRET SERVICE AGENT, CRP, CMP ####[facility] [address] [place], [place] [address]Dr. Shahbaz Rogel ALT [Catalytic activity/Vol] 21 U/L Normal 14-59 [facility] Comment on above: Performed By: #### B SECRET SERVICE AGENT, CRP, CMP ####[facility] [address]ft[address] [place], [place] [address]Dr. Shahbaz Rogel Anion gap [Moles/Vol] 13.4 mmol/L Normal [facility] Comment on above: Performed By: #### B SECRET SERVICE AGENT, CRP, CMP ####[facility] [address] [place], [place] [address]Dr. Shahbaz Rogel AST [Catalytic activity/Vol] 16 U/L Normal 15-37 [facility] Comment on above: Performed By: #### B SECRET SERVICE AGENT, CRP, CMP ####[facility] [address]nfz[address] [place], [place] [address]Dr. Shahbaz Rogel Bilirubin [Mass/Vol] 0.2 mg/dL Normal 0.2-1.0 [facility] Comment on above: Performed By: #### B SECRET SERVICE AGENT, CRP, CMP ####[facility] Ed[address] [place], [place] [address]Dr. Shahbaz Rogel Calcium [Mass/Vol] 9.3 mg/dL Normal 8.5-10.1 [facility] Comment on above: Performed By: #### B SECRET SERVICE AGENT, CRP, CMP ####[facility] [address]wt[address] [place], [place] [address]Dr. Shahbaz Rogel Chloride [Moles/Vol] 105 mmol/L Normal 98-107 [facility] Comment on above: Performed By: #### B SECRET SERVICE AGENT, CRP, CMP ####[facility] [address] [place], [place] [address]Dr. Shahbaz Rogel CO2 [Moles/Vol] 23.2 mmol/L Normal 21.0-32.0 [facility] Comment on above: Performed By: #### B SECRET SERVICE AGENT, CRP, CMP ####[facility] [address] [place], [place] [address]Dr. Shahbaz Rogel Creatinine [Mass/Vol] 1.23 mg/dL Critically high 0.55-1.02 [facility] Comment on above: Performed By: #### B SECRET SERVICE AGENT, CRP, CMP ####[facility] [address]pr[address] [place], [place] [address]Dr. Shahbaz Rogel EGFR-AF ZAMBIAN 55 mL/min/1.73m2 Critically low >=60 [facility] Comment on above: Performed By: #### B SECRET SERVICE AGENT, CRP, CMP ####[facility] [address] [place] [address]Dr. Shahbaz Rogel EGFR-NON AF ZAMBIAN 45 mL/min/1.73m2 Critically low >=60 [facility] Comment on above: Performed By: #### B SECRET SERVICE AGENT, CRP, CMP ####[facility] [address] [place] [address]Dr. Shahbaz Rogel Globulin (S) [Mass/Vol] 3.3 g/dL Normal [facility] Comment on above: Performed By: #### B SECRET SERVICE AGENT, CRP, CMP ####[facility] [address]ipjyc[address] [place] [address]Dr. Shahbaz Rogel Glucose [Mass/Vol] 171 mg/dL Critically high 74-106 [facility] Comment on above: Performed By: #### B SECRET SERVICE AGENT, CRP, CMP ####[facility] [address]ukwgw[address] [place] [address]Dr. Shahbaz Rogel Potassium [Moles/Vol] 3.6 mmol/L Normal 3.5-5.1 [facility] Comment on above: Performed By: #### B SECRET SERVICE AGENT, CRP, CMP ####[facility] [address]yt[address]em[address] [place], [place] [address]Dr. Shahbaz Rogel Protein [Mass/Vol] 6.7 g/dL Normal 6.4-8.2 [facility] Comment on above: Performed By: #### B SECRET SERVICE AGENT, CRP, CMP ####[facility] [address]juz[address] [place] [address]Dr. Shahbaz Rogel Sodium [Moles/Vol] 138 mmol/L Normal 136-145 [facility] Comment on above: Performed By: #### B SECRET SERVICE AGENT, CRP, CMP ####[facility] Se[address]ipx[address] [place] [address]Dr. Shahbaz Rogel Urea nitrogen [Mass/Vol] 21.0 mg/dL Critically high 7.0-18.0 [facility] Comment on above: Performed By: #### B SECRET SERVICE AGENT, CRP, CMP ####[facility] F[address]exybzy[address] [place] [address]Dr. Shahbaz Rogel Urea nitrogen/Creatinine [Mass ratio] 17.1 mg/mg Normal [facility] Comment on above: Performed By: #### B SECRET SERVICE AGENT, CRP, CMP ####[facility] [address]oleap[address] [place] [address]Dr. Shahbaz Rogel XR CHEST 2 Von 07-06-2022 XR CHEST 2 V Normal [facility] BNPon 07-05-2022 Natriuretic peptide B (Bld) [Mass/Vol] 83.0 pg/mL Normal <=900.0 [facility] Comment on above: Performed By: #### C RP, CMP, BNP ####[facility] [address] [place], [place] [address]Dr. Shahbaz Rogel CBC AUTO DIFFon 07-05-2022 BASO # 0.0 103/ul Normal 0.0-0.1 [facility] Comment on above: Performed By: #### C BC ####[facility] [address] [place], [place] [address]Dr. Shahbaz Rogel Basophils/100 WBC (Bld) 0.4 % Normal 0.2-2.0 [facility] Comment on above: Performed By: #### C BC ####[facility] [address] [place], [place] [address]Dr. Shahbaz Rogel EO # 0.1 103/ul Normal 0.0-0.7 [facility] Comment on above: Performed By: #### C BC ####[facility] [address] [place], [place] [address]Dr. Shahbaz Rogel Eosinophils/100 WBC (Bld) 2.9 % Normal 0.9-7.0 [facility] Comment on above: Performed By: #### C BC ####[facility] [address]nsmv[address] [place], [place] [address]Dr. Shahbaz Rogel Erythrocyte distribution width (RBC) [Ratio] 13.4 % Normal 11.0-15.0 [facility] Comment on above: Performed By: #### C BC ####[facility] [address]ff[address] [place], [place] [address]Dr. Shahbaz Rogel Hematocrit (Bld) [Volume fraction] 41.7 % Normal 36.0-48.0 [facility] Comment on above: Performed By: #### C BC ####[facility] [address] [place] [phone]. Shahbaz Rogel Hemoglobin (Bld) [Mass/Vol] 12.9 g/dL Normal 12.0-16.0 [facility] Comment on above: Performed By: #### C BC ####[facility] [address] [place] [phone]. Shahbaz Rogel IG # 0.00 10e3/ul Normal 0.00-0.03 [facility] Comment on above: Performed By: #### C BC ####[facility] [address]jnxmj[address] [place] [address]Dr. Shahbaz Rogel IG % 0.0 % Normal 0.0-0.5 [facility] Comment on above: Performed By: #### C BC ####[facility] [address] [place], [place] [address]Dr. Shahbaz Rogel LYMPH # 1.5 103/ul Normal 1.2-3.8 [facility] Comment on above: Performed By: #### C BC ####[facility] [address]olsv[address] [place] [address]Dr. Shahbaz Rogel Lymphocytes/100 WBC (Bld) 32.9 % Normal 20.5-60.0 [facility] Comment on above: Performed By: #### C BC ####[facility] [address] [place] [address]Dr. Shahbaz Rogel MANUAL DIFF REQ NO Normal [facility] Comment on above: Performed By: #### C BC ####[facility] [address]ay[address] [place] [phone]. Shahbaz Rogel MCH (RBC) [Entitic mass] 28.0 pg Normal 26.7-34.0 [facility] Comment on above: Performed By: #### C BC ####[facility] [address]ucneh[address] [place] [phone]. Shahbaz Juan F MCHC (RBC) [Mass/Vol] 30.9 g/dL Normal 29.9-35.2 [facility] Comment on above: Performed By: #### C BC ####[facility] [address]ks[address]bcqh[address] [place] [phone]. Shahbaz Rogel MCV (RBC) [Entitic vol] 90.5 fL Normal 81.0-99.0 [facility] Comment on above: Performed By: #### C BC ####[facility] [address]fr[address] [place] [phone]. Shahbaz Rogel MONO # 0.4 103/ul Normal 0.3-0.8 [facility] Comment on above: Performed By: #### C BC ####[facility] Ep[address]qxliquu[address] [place] [phone]. Shahbaz Juan F Monocytes/100 WBC (Bld) 8.0 % Normal 1.7-12.0 [facility] Comment on above: Performed By: #### C BC ####[facility] [address] [place], [place] [address]Dr. Shahbaz Rogel NEUT # 2.5 103/ul Normal 1.4-6.5 [facility] Comment on above: Performed By: #### C BC ####[facility] [address] [place], [place] [id number]. Shahbaz Juan F Neutrophils/100 WBC (Bld) 55.8 % Normal 43.0-75.0 [facility] Comment on above: Performed By: #### C BC ####[facility] [address] [place], [place] [id number]. Shahbaz Juan F Platelet mean volume (Bld) [Entitic vol] 9.7 fL Normal 9.5-13.5 [facility] Comment on above: Performed By: #### C BC ####[facility] [address] [place] [id number]. Shahbaz Juan F PLT 158 103/ul Normal 150-450 [facility] Comment on above: Performed By: #### C BC ####[facility] Gotikuzsyn[address] [place] [id number]. Shahbaz Rogel RBC 4.61 106/ul Normal 4.20-5.40 [facility] Comment on above: Performed By: #### C BC ####[facility] L[address]bltryev[address] [place] [address]Dr. Lilajarrod Juan F WBC 4.5 103/ul Normal 4.0-11.0 [facility] Comment on above: Performed By: #### C BC ####[facility] Tihlrjgrqy[address] [place] [address]Dr. Lilajarrod Rogel CRPon 07-05-2022 CRP [Mass/Vol] mg/L Normal <=1.0 [facility] Comment on above: Performed By: #### C RP, CMP, BNP ####[facility] [address]vwgiiwglv[address] [place] [address]Dr. Shahbaz Rogel ECHO LIMITED STUDYon ECHO LIMITED STUDY Normal [facility] PROF 14(COMP METB)on Albumin [Mass/Vol] 3.2 g/dL Critically low 3.4-5.0 [facility] Comment on above: Performed By: #### C RP, CMP, BNP ####[facility] Wwtfqaqfff[address] [place] [address]Dr. Shahbaz Rogel Albumin/Globulin [Mass ratio] 1.0 {ratio} Normal [facility] Comment on above: Performed By: #### C RP, CMP, BNP ####[facility] [address]chmzg[address] [place] [address]Dr. Shahbaz Rogel ALP [Catalytic activity/Vol] 88 U/L Normal 46-116 [facility] Comment on above: Performed By: #### C RP, CMP, BNP ####[facility] Lldqegwhux[address] [place] [address]Dr. Shahbaz Rogel ALT [Catalytic activity/Vol] 17 U/L Normal 14-59 [facility] Comment on above: Performed By: #### C RP, CMP, BNP ####[facility] Gglqjpwfcu4[address] [place] [address]Dr. Shahbaz Rogel Anion gap [Moles/Vol] 12.5 mmol/L Normal [facility] Comment on above: Performed By: #### C RP, CMP, BNP ####[facility] Ythktv[address] [place], [place] [address]Dr. Shahbaz Rogel AST [Catalytic activity/Vol] 18 U/L Normal 15-37 [facility] Comment on above: Performed By: #### C RP, CMP, BNP ####[facility] Muwpgnsajz[address] [place], [place] [address]Dr. Shahbaz Rogel Bilirubin [Mass/Vol] 0.3 mg/dL Normal 0.2-1.0 [facility] Comment on above: Performed By: #### C RP, CMP, BNP ####[facility] [address]bljtq[address] [place], [place] [address]Dr. Shahbaz Rogel Calcium [Mass/Vol] 8.9 mg/dL Normal 8.5-10.1 [facility] Comment on above: Performed By: #### C RP, CMP, BNP ####[facility] Rtfjclgfws[address] [place], [place] [address]Dr. Shahbaz Rogel Chloride [Moles/Vol] 103 mmol/L Normal 98-107 [facility] Comment on above: Performed By: #### C RP, CMP, BNP ####[facility] Vrxe[address]oxxo[address] [place], [place] [address]Dr. Shahbaz Rogel CO2 [Moles/Vol] 28.1 mmol/L Normal 21.0-32.0 [facility] Comment on above: Performed By: #### C RP, CMP, BNP ####[facility] Wuwpqwnfyt[address] [place], [place] [address]Dr. Shahbaz Rogel Creatinine [Mass/Vol] 1.24 mg/dL Critically high 0.55-1.02 [facility] Comment on above: Performed By: #### C RP, CMP, BNP ####[facility] Trduicaonr[address] [place], [place] [address]Dr. Shahbaz Rogel EGFR-AF ZAMBIAN 54 mL/min/1.73m2 Critically low >=60 [facility] Comment on above: Performed By: #### C RP, CMP, BNP ####[facility] Aiehhjtsbj[address] [place], [place] [address]Dr. Shahbaz Rogel EGFR-NON AF ZAMBIAN 45 mL/min/1.73m2 Critically low >=60 [facility] Comment on above: Performed By: #### C RP, CMP, BNP ####[facility] Sfsxcurnyt[address] [place] [address]Dr. Shahbaz Rogel Globulin (S) [Mass/Vol] 3.1 g/dL Normal [facility] Comment on above: Performed By: #### C RP, CMP, BNP ####[facility] Cebifpymqf[address] [place] [address]Dr. Shahbaz Rogel Glucose [Mass/Vol] 115 mg/dL Critically high 74-106 [facility] Comment on above: Performed By: #### C RP, CMP, BNP ####[facility] Fafcphukop[address] [place] [address]Dr. Shahbaz Rogel Potassium [Moles/Vol] 3.6 mmol/L Normal 3.5-5.1 [facility] Comment on above: Performed By: #### C RP, CMP, BNP ####[facility] [address]zadugdj[address] [place], [place] [address]Dr. Shahbaz Rogel Protein [Mass/Vol] 6.3 g/dL Critically low 6.4-8.2 Th [facility] Comment on above: Performed By: #### C RP, CMP, BNP ####[facility] F[address] [place] [address]. Shahbaz Rogel Sodium [Moles/Vol] 140 mmol/L Normal 136-145 [facility] Comment on above: Performed By: #### C RP, CMP, BNP ####[facility] Oxdqroiocu[address] [place] [address]Dr. Shahbaz Rogel Urea nitrogen [Mass/Vol] 18.0 mg/dL Normal 7.0-18.0 [facility] Comment on above: Performed By: #### C RP, CMP, BNP ####[facility] Fnrtnjksoy4[address] [place] [address]Dr. Shahbaz Rogel Urea nitrogen/Creatinine [Mass ratio] 14.5 mg/mg Normal [facility] Comment on above: Performed By: #### C RP, CMP, BNP ####[facility] [address] [place] [address]. Shahbaz Rogel T3, TOTAL (TRIIODOTHYRONINE) on 07-05-2022 T3, TOTAL 95 ng/dL Normal 71-180 [facility] Comment on above: Performed By: #### T 3TOTAL ####[facility] Jtacxcpzow[address] [place] [address]Dr. Shahbaz Rogel CARDIAC ROSALINA 3-6on 2 CK [Catalytic activity/Vol] 78 U/L Normal 26-192 [facility] Comment on above: Performed By: #### C MREP ####[facility] Lkmgwhwygp[address] [place] [id number]. Shahbaz Rogel CK.MB [Mass/Vol] 1.44 ng/mL Normal <=3.60 [facility] Comment on above: Performed By: #### C MREP ####[facility] Ndmwftllzq[address] [place], [place] [address]Dr. Shahbaz Rogel HSTROP 9.0 pg/mL Normal 4.0-51.3 [facility] Comment on above: Result Comment: CUT- OFF POINTS HAVE BEEN ESTABLISHED BASED ON THE FOURTH UNIVERSAL DEFINITIONS OF MYOCARDIALINFARCTION. THE UPPER REFERENCE LIMIT (URL) OF TROPONIN, DEFINED THE 99TH PERCENTILE OFcTnI DISTRIBUTION IN A REFERENCE POPULATION, HAS BEEN CONFIRMED THE DECISION THRESHOLDFOR SC DIAGNOSIS. Performed By: #### C MREP ####[facility] Nyvimwymfa[address] [place] [address]Dr. Shahbaz Rogel CK [Catalytic activity/Vol] 88 U/L Normal 26-192 [facility] Comment on above: Performed By: #### C MREP ####[facility] Randwhmsgl[address] [place] [phone]. Shahbaz Rogel CK.MB [Mass/Vol] 1.38 ng/mL Normal <=3.60 [facility] Comment on above: Performed By: #### C MREP ####[facility] [address] [place], [place] [id number]. Shahbaz Rogel HSTROP 7.0 pg/mL Normal 4.0-51.3 [facility] Comment on above: Result Comment: CUT- OFF POINTS HAVE BEEN ESTABLISHED BASED ON THE FOURTH UNIVERSAL DEFINITIONS OF MYOCARDIALINFARCTION. THE UPPER REFERENCE LIMIT (URL) OF TROPONIN, DEFINED THE 99TH PERCENTILE OFcTnI DISTRIBUTION IN A REFERENCE POPULATION, HAS BEEN CONFIRMED THE DECISION THRESHOLDFOR SC DIAGNOSIS. Performed By: #### C MREP ####[facility] Apflhkpkim[address] [place] [phone]. Shahbaz Rogel CARDIAC ROSALINA ADMITon 022 CK [Catalytic activity/Vol] 87 U/L Normal 26-192 [facility] Comment on above: Performed By: #### C JACKSON, CMADM ####[facility] [address]whwel[address] [place] [address]Dr. Shahbaz Rogel CK.MB [Mass/Vol] 1.80 ng/mL Normal <=3.60 [facility] Comment on above: Performed By: #### C JACKSON, CMADM ####[facility] [address]jb[address] [place], [place] [address]Dr. Shahbaz Rogel HSTROP 7.6 pg/mL Normal 4.0-51.3 [facility] Comment on above: Result Comment: CUT- OFF POINTS HAVE BEEN ESTABLISHED BASED ON THE FOURTH UNIVERSAL DEFINITIONS OF MYOCARDIALINFARCTION. THE UPPER REFERENCE LIMIT (URL) OF TROPONIN, DEFINED THE 99TH PERCENTILE OFcTnI DISTRIBUTION IN A REFERENCE POPULATION, HAS BEEN CONFIRMED THE DECISION THRESHOLDFOR SC DIAGNOSIS. Performed By: #### C JACKSON, CMADM ####[facility] Adtxgxnvvn[address] [place] [address]Dr. Shahbaz Rogel LEN 67 ng/mL Normal 9-82 [facility] Comment on above: Performed By: #### C JACKSON, CMADM ####[facility] Iaqcwtdqov3[address] [place] [phone]. Shahbaz Rogel CBC AUTO DIFFon 07-04-2022 BASO # 0.0 103/ul Normal 0.0-0.1 [facility] Comment on above: Performed By: #### C BC ####[facility] Ikyqurlszl[address] [place] [address]Dr. Shahbaz Rogel Basophils/100 WBC (Bld) 0.7 % Normal 0.2-2.0 [facility] Comment on above: Performed By: #### C BC ####[facility] Khbfbidwkq9[address] [place] [phone]. Shahbaz Rogel EO # 0.1 103/ul Normal 0.0-0.7 [facility] Comment on above: Performed By: #### C BC ####[facility] Obbxlwfnfj45[address] [place] [address]Dr. Shahbaz Rogel Eosinophils/100 WBC (Bld) 3.4 % Normal 0.9-7.0 [facility] Comment on above: Performed By: #### C BC ####[facility] T[address]mvrvmd[address] [place], [place] [address]Dr. Shahbaz Rogel Erythrocyte distribution width (RBC) [Ratio] 13.3 % Normal 11.0-15.0 [facility] Comment on above: Performed By: #### C BC ####[facility] Zmljevnxco[address] [place], [place] [address]Dr. Shahbaz Rogel Hematocrit (Bld) [Volume fraction] 42.1 % Normal 36.0-48.0 [facility] Comment on above: Performed By: #### C BC ####[facility] [address]rgeyf[address] [place], [place] [address]Dr. Shahbaz Rogel Hemoglobin (Bld) [Mass/Vol] 13.3 g/dL Normal 12.0-16.0 [facility] Comment on above: Performed By: #### C BC ####[facility] Gpnuidokxa[address] [place], [place] [address]Dr. Shahbaz Rogel IG # 0.01 10e3/ul Normal 0.00-0.03 [facility] Comment on above: Performed By: #### C BC ####[facility] [address]aj[address]akgvey[address] [place], [place] [address]Dr. Shahbaz Rogel IG % 0.3 % Normal 0.0-0.5 [facility] Comment on above: Performed By: #### C BC ####[facility] F[address]wlhzr[address] [place], [place] [address]Dr. Lilajarrod Rogel LYMPH # 1.0 103/ul Critically low 1.2-3.8 [facility] Comment on above: Performed By: #### C BC ####[facility] Tubtcrydfx750[address] [place] [phone]. Lilajarrod Rogel Lymphocytes/100 WBC (Bld) 35.6 % Normal 20.5-60.0 [facility] Comment on above: Performed By: #### C BC ####[facility] Szojcodefd06[address] [place] [phone]. Shahbaz Rogel MANUAL DIFF REQ NO Normal [facility] Comment on above: Performed By: #### C BC ####[facility] Jozmwxxzqr58[address] [place] [phone]. Shahbaz Rogel MCH (RBC) [Entitic mass] 27.9 pg Normal 26.7-34.0 [facility] Comment on above: Performed By: #### C BC ####[facility] G[address]wfcrbai[address] [place], [place] [address]Dr. Shahbaz Rogel MCHC (RBC) [Mass/Vol] 31.6 g/dL Normal 29.9-35.2 [facility] Comment on above: Performed By: #### C BC ####[facility] X[address]mdgqyiw[address] [place], [place] [address]Dr. Shahbaz Rogel MCV (RBC) [Entitic vol] 88.3 fL Normal 81.0-99.0 [facility] Comment on above: Performed By: #### C BC ####[facility] Q[address]zlsvzuy[address] [place], [place] [address]Dr. Shahbaz Rogel MONO # 0.2 103/ul Critically low 0.3-0.8 [facility] Comment on above: Performed By: #### C BC ####[facility] Yehhlqnlbv[address] [place], [place] [address]Dr. Shahbaz Rogel Monocytes/100 WBC (Bld) 7.9 % Normal 1.7-12.0 [facility] Comment on above: Performed By: #### C BC ####[facility] Zceugmwxxf[address] [place], [place] [address]Dr. Shahbaz Rogel NEUT # 1.5 103/ul Normal 1.4-6.5 [facility] Comment on above: Performed By: #### C BC ####[facility] Vqpsbxdhnk54[address] [place] [address]Dr. Shahbaz Rogel Neutrophils/100 WBC (Bld) 52.1 % Normal 43.0-75.0 [facility] Comment on above: Performed By: #### C BC ####[facility] Xdsnrlvsxb[address] [place], [place] [address]Dr. Shahbaz Rogel Platelet mean volume (Bld) [Entitic vol] 9.5 fL Normal 9.5-13.5 [facility] Comment on above: Performed By: #### C BC ####[facility] Pme[address]ffnzmw[address] [place], [place] [address]Dr. Shahbaz Rogel PLT 172 103/ul Normal 150-450 [facility] Comment on above: Performed By: #### C BC ####[facility] Azvglnhchw[address] [place], [place] [address]Dr. Shahbaz Rogel RBC 4.77 106/ul Normal 4.20-5.40 [facility] Comment on above: Performed By: #### C BC ####[facility] Zlereodyhn[address] [place], [place] [address]Dr. Shahbaz Rogel WBC 2.9 103/ul Critically low 4.0-11.0 [facility] Comment on above: Performed By: #### C BC ####[facility] [address]iebpylcdp[address] [place], [place] [address]Dr. Shahbaz Rogel CELL COUNT BODY FLUIDon 10-0 BASOS Normal [facility] Comment on above: Performed By: #### B FCC ####[facility] Bxdmeunmjo[address] [place], [place] [address]Dr. Shahbaz Rogel Eosinophils/100 WBC (Bld) 4 % Normal [facility] Comment on above: Performed By: #### B FCC ####[facility] Fslidmwpce[address] [place], [place] [address]Dr. Shahbaz Rogel Lymphocytes/100 WBC (Bld) 12 % Normal [facility] Comment on above: Performed By: #### B FCC ####[facility] Ooptqewfhf[address] [place], [place] [id number]. Shahbaz Rogel Monocytes/100 WBC (Bld) 4 % Normal [facility] Comment on above: Performed By: #### B FCC ####[facility] Duolnvcxdz13[address] [place] [phone]. Shahbaz Rogel RBC [address] [facility] Comment on above: Performed By: #### B FCC ####[facility] Zifcwotarr9[address] [place] [address]Dr. Shahbaz Rogel SEGS 80 % Normal [facility] Comment on above: Performed By: #### B FCC ####[facility] Kra[address]mepkm[address] [place], [place] [address]Dr. Shahbaz Rogel WBC BODY FLUID [address] [facility] Comment on above: Performed By: #### B FCC ####[facility] [address]qptbuypvf[address] [place], [place] [address]Dr. Shahbaz Rogel CULTURE OTHERon 07-04-2022 CULTURE OTHER Culture Observations : NO GROWTH AT 48 HOURS. Normal [facility] Comment on above: Performed By: #### O THCX ####[facility] Uzrnfbucgl[address] [place], [place] [address]Dr. Shahbaz Rogel CYTOLOGYon 07-04-2022 SENT TO REF LAB 07/04/22 Normal [facility] Comment on above: Performed By: #### C YTO ####[facility] Qppcmndpni[address] [place], [place] [address]Dr. Shahbaz Rogel Covid-19 PCR (CVDTB)on SARS-CoV-2 (COVID-19) RNA PAVAN+probe Ql (Unsp spec) Not detected Normal NOT DETECTED [facility] Comment on above: Result Comment: When diagnostic testing is negative, the possibility of a false negative should be considered inthe context of a patient's recent exposures and the presence of clinical signs and symptomsconsistent with SARS-CoV-2.This test is not yet approved or cleared by the [place] FDA. When there are no FDA-approved or cleared tests available, and other criteria are met, FDA can make tests available under an emergency access mechanism called an Emergency Use Authorization (EUA). The EUA for this test is supported by the [place] of Health and Human Service's declaration that circumstances exist to justify the emergency use of in vitro diagnostics for the detection and/or diagnosis of the virus that causes COVID-19. This EUA will remain in effect for the duration of the COVID-19 declaration justifying emergency of IVDs, unless it is terminated or revoked by the FDA (after which the test may no longer be used). Performed By: #### C VDTBH ####[facility] Vkpnejudxa[address] [place] [address]Dr. Shahbaz Rogel GRAM STAINon 07-04-2022 COMMENTS NO ORGANISMS OBSERVED Normal [facility] Comment on above: Performed By: #### G STAIN ####[facility] U[address]azwssrb[address] [place], [place] [address]Dr. Lilajarrod Juan F DIPHTHEROIDS Normal [facility] Comment on above: Performed By: #### G STAIN ####[facility] Yadbyxnyik[address] [place], [place] [address]Dr. Shahbaz Rogel EPITHELIALS Normal [facility] Comment on above: Performed By: #### G STAIN ####[facility] [address]ib[address]vlurcm[address] [place], [place] [address]Dr. Shahbaz Rogel FUNGAL ELEMENTS Normal [facility] Comment on above: Performed By: #### G STAIN ####[facility] Lesrmppidt[address] [place], [place] [address]Dr. Shahbaz Rogel GRAM NEG BACILLI Normal [facility] Comment on above: Performed By: #### G STAIN ####[facility] Hqwwrxwqan[address] [place], [place] [address]Dr. Shahbaz Rogel GRAM NEG DIPPLOCOCCI Normal [facility] Comment on above: Performed By: #### G STAIN ####[facility] [address]mz[address] [place], [place] [address]Dr. Shahbaz Rogel GRAM POS BACILLI Normal [facility] Comment on above: Performed By: #### G STAIN ####[facility] Xbtwx[address]rgs[address] [place], [place] [address]Dr. Shahbaz Rogel GRAM POSITIVE COCCI Normal [facility] Comment on above: Performed By: #### G STAIN ####[facility] Pqpmmaepre[address] [place] [address]Dr. Shahbaz Rogel GRAM STAIN SOURCE Rt Lower Lobe Bronch ial Washing Normal [facility] Comment on above: Performed By: #### G STAIN ####[facility] Rpudogerbz[address] [place] [address]Dr. Shahbaz Rogel GS_DIPTH Normal [facility] Comment on above: Performed By: #### G STAIN ####[facility] Vmrmujfufh17[address] [place] [address]Dr. Shahbaz Rogel WBC RARE Normal [facility] Comment on above: Performed By: #### G STAIN ####[facility] Alzkiccrtc13[address] [place] [address]Dr. Shahbaz Rogel PROF 14(COMP METB)on 022 Albumin [Mass/Vol] 3.6 g/dL Normal 3.4-5.0 [facility] Comment on above: Performed By: #### C CINDY PAZ ####[facility] [address]utqdoi[address] [place], [place] [address]Dr. Shahbaz Rogel Albumin/Globulin [Mass ratio] 1.1 {ratio} Normal [facility] Comment on above: Performed By: #### C CINDY PAZ ####[facility] O[address]qvqyjg[address] [place], [place] [address]Dr. Shahbaz Rogel ALP [Catalytic activity/Vol] 102 U/L Normal 46-116 [facility] Comment on above: Performed By: #### C CINDY PAZ ####[facility] Ibicdiqbsa[address] [place] [address]Dr. Shahbaz Rogel ALT [Catalytic activity/Vol] 19 U/L Normal 14-59 [facility] Comment on above: Performed By: #### C CINDY PAZ ####[facility] [address]ootzbrr[address] [place], [place] [address]Dr. Shahbaz Rogel Anion gap [Moles/Vol] 9.5 mmol/L Normal [facility] Comment on above: Performed By: #### C CINDY PAZ ####[facility] Q[address]ctjqzllm[address] [place], [place] [address]Dr. Shahbaz Rogel AST [Catalytic activity/Vol] 19 U/L Normal 15-37 [facility] Comment on above: Performed By: #### C CINDY PAZ ####[facility] Rpugeoubpz[address] [place] [address]Dr. Shahbaz Rogel Bilirubin [Mass/Vol] 0.3 mg/dL Normal 0.2-1.0 [facility] Comment on above: Performed By: #### C JACKSON, CINDY ####[facility] Eugksgpryo[address] [place] [address]Dr. Shahbaz Rogel Calcium [Mass/Vol] 8.8 mg/dL Normal 8.5-10.1 [facility] Comment on above: Performed By: #### C CINDY PAZ ####[facility] Yixdkjjuvo[address] [place], [place] [address]Dr. Shahbaz Rogel Chloride [Moles/Vol] 107 mmol/L Normal 98-107 [facility] Comment on above: Performed By: #### C CINDY PAZ ####[facility] [address]wurndoyo[address] [place], [place] [address]Dr. Shahbaz Rogel CO2 [Moles/Vol] 29.5 mmol/L Normal 21.0-32.0 [facility] Comment on above: Performed By: #### C CINDY PAZ ####[facility] C[address]wsfeiok[address] [place], [place] [address]Dr. Shahbaz Rogel Creatinine [Mass/Vol] 0.97 mg/dL Normal 0.55-1.02 [facility] Comment on above: Performed By: #### C CINDY PAZ ####[facility] Qifbwjgqtk[address] [place], [place] [address]Dr. Shahbaz Rogel EGFR-AF ZAMBIAN >60 Normal >=60 [facility] Comment on above: Performed By: #### C CINDY PAZ ####[facility] [address]bf[address]ijoet[address] [place], [place] [address]Dr. Shahbaz Rogel EGFR-NON AF ZAMBIAN 59 mL/min/1.73m2 Critically low >=60 [facility] Comment on above: Performed By: #### C CINDY PZA ####[facility] Awoqdylvma[address] [place] [phone]. Shahbaz Rogel Globulin (S) [Mass/Vol] 3.2 g/dL Normal [facility] Comment on above: Performed By: #### C JACKSON, CINDY ####[facility] Nnpdkdvbto60[address] [place] [phone]. Shahbaz Rogel Glucose [Mass/Vol] 89 mg/dL Normal 74-106 [facility] Comment on above: Performed By: #### C JACKSON, CINDY ####[facility] Fxrdocvzpq55[address] [place] [address]Dr. Shahbaz Rogel Potassium [Moles/Vol] 4.0 mmol/L Normal 3.5-5.1 [facility] Comment on above: Performed By: #### C JACKSON, CINDY ####[facility] Yfpkdphtse[address] [place] [address]Dr. Shahbaz Rogel Protein [Mass/Vol] 6.8 g/dL Normal 6.4-8.2 [facility] Comment on above: Performed By: #### C JACKSON, CINDY ####[facility] Eamhkfxaqm50[address] [place] [address]Dr. Shahbaz Rogel Sodium [Moles/Vol] 142 mmol/L Normal 136-145 [facility] Comment on above: Performed By: #### C JACKSON, CINDY ####[facility] Cvqoeuxdtr16[address] [place] [address]Dr. Shahbaz Rogel Urea nitrogen [Mass/Vol] 11.0 mg/dL Normal 7.0-18.0 [facility] Comment on above: Performed By: #### C JACKSON, CINDY ####[facility] Abguqposcs[address] [place] [address]Dr. Shahbaz Rogel Urea nitrogen/Creatinine [Mass ratio] 11.3 mg/mg Normal [facility] Comment on above: Performed By: #### C JACKSON, CMADM ####[facility] J[address]wvpaav[address] [place], [place] [address]Dr. Shahbaz Rogel T4on 07-04-2022 T4 [Mass/Vol] 4.70 ug/dL Critically low 4.80-13.90 [facility] Comment on above: Performed By: #### T SH, T4 ####[facility] Saerrajjdt[address] [place] [phone]. Shahbaz Rogel TSHon 07-04-2022 TSH 0.359 uIU/mL Normal 0.358-3.[address] [facility] Comment on above: Performed By: #### T SH, T4 ####[facility] Lsetjiuaha[address] [place] [address]Dr. Shahbaz Rogel XR CHEST 1 Von 07-04-2022 XR CHEST 1 V Normal [facility] XR CHEST [address] [facility] CHLAMYDIA PNEUMONIAE IgG IgM IgAon 06-27-2022 Chlamydia pneumoniae IgA <1:16 Normal Neg:<1:16 [facility] Comment on above: Performed By: #### C HLMPNE ####[facility] Wnxzcpbkgy[address] [place], [place] [address]Dr. jarrod Rogel Chlamydia pneumoniae IgG <1:16 Normal Neg:<1:16 [facility] Comment on above: Performed By: #### C HLMPNE ####[facility] Z[address]szkiqje[address] [place], [place] [address]Dr. [facility] Chlamydia pneumoniae IgM <1:10 Normal Neg:<1:10 [facility] Comment on above: Performed By: #### C HLMPNE ####[facility] [address]xrmqc[address] [place], [place] [address]Dr. Shahbaz Rogel Test Information: Comment Normal [facility] Comment on above: Result Comment: This test was developed and its performance characteristics determinedby [facility]. It has not been cleared or approved by the Food and DrugAdministration. The FDA has determined that such clearance or approvalis not necessary. Results of this test are for investigationalpurposes only. The result should not be used as a diagnosticprocedure without confirmation of the diagnosis by another medicallyestablished diagnostic product or procedure. Performed By: #### C HLMPNE ####[facility] [address]emztiengn[address] [place], [place] [address]Dr. Shahbaz Rogel Covid-19 PCR (CVDTB)on 06-03 SARS-CoV-2 (COVID-19) RNA PAVAN+probe Ql (Unsp spec) Not detected Normal NOT DETECTED [facility] Comment on above: Result Comment: This test is not yet approved or cleared by the [place] FDA. When there are no FDA-approved or cleared tests available, and other criteria are met, FDA can make tests available under an emergency access mechanism called an Emergency Use Authorization (EUA). The EUA for this test is supported by the [place] [employer] [place] of Health and Human Service's (HHS's) declaration that circumstances exist to justify the emergency use of in vitro diagnostics for the detection and/or diagnosis of the virus that causes COVID-19. This EUA will remain in effect (meaning this test can be used) for the duration of the COVID-19 declaration justifying emergency of IVDs, unless it is terminated or revoked by FDA (after which the test may no longer be used).When diagnostic testing is negative, the possibility of a false negative should be considered inthe context of a patient's recent exposures and the presence of clinical signs and symptomsconsistent with SARS-CoV-2. Performed By: #### C VDTBH ####[facility] [address]kbpefy[address] [place], [place] [address]Dr. Shahbaz Rogel CYCLIC CITRULLINATED PEPTIDE AB (CCP)on 06-25-2022 CCP Antibodies IgG/IgA 13 units Normal 0-19 Th [facility] Comment on above: Result Comment: Nega tive <20 Weak positive 20 - 39 Moderate positive 40 - 59 Strong positive >59 Performed By: #### C CPAB ####[facility] [address] [place] [address]Dr. Shahbaz Rogel ANTI NEUTROPHIL CYTOPLASMIC AB (ANCA) PRon 06-24-2022 Anti-MPO Antibodies <0.2 Normal 0.0-0.9 [facility] Comment on above: Result Comment: Perf ormed at: BN Performed By: #### A NCAP ####[facility] [address] [place], [place] [address]Dr. Shahbaz Rogel Anti-PR3 Antibodies 5.0 units Critically high 0.0-0.9 [facility] Comment on above: Result Comment: Perf ormed at: BN Performed By: #### A NCAP ####[facility] [address]fm[address] [place] [address]Dr. Lilajarrod Juan F Atypical pANCA <1:20 Normal Neg:<1:20 [facility] Comment on above: Result Comment: The atypical pANCA pattern has been observed in a significantpercentage of patients with ulcerative colitis, primary sclerosingcholangitis and autoimmune hepatitis.Performed at: CB Performed By: #### A NCAP ####[facility] [address]vbatvcl[address] [place] [address]Dr. Shahbaz Rogel Cytoplasmic (C-ANCA) <1:20 Normal Neg:<1:20 [facility] Comment on above: Result Comment: Perf ormed at: CB Performed By: #### A NCAP ####[facility] [address] [place] [address]Dr. Shahbaz Rogel Perinuclear (P-ANCA) 1:80 Critically high Neg:<1:20 [facility] Comment on above: Result Comment: The presence of positive fluorescence exhibiting P-ANCA or C-ANCApatterns alone is not specific for the diagnosis of Ada'sGranulomatosis (WG) or microscopic polyangiitis. Decisions abouttreatment should not be based solely on ANCA IFA results. TheInternational ANCA Group Consensus recommends follow up testing ofpositive sera with both LA-3 and MPO-ANCA enzyme immunoassays. Asmany as 5% serum samples are positive only by EIA.Ref. AM J Clin Pathol 1999;111:507-513.Performed at: CB Performed By: #### A NCAP ####[facility] [address]ix[address] [place] [address]Dr. Shahbaz Rogel ANTIGLOMERULAR BASEMENT MEMB ANTOINE ABSon 06-24-2022 Anti-GBM Antibodies <0.2 Normal 0.0-0.9 [facility] Comment on above: Performed By: #### A GBM ####[facility] Fq[address]hywec[address] [place] [address]Dr. Shahbaz Rogel SHAHANA EIA W/REFLEX 5 BIOMARKER Son 06-23-2022 SHAHANA Direct Negative Normal Negative [facility] Comment on above: Performed By: #### A NARF ####[facility] [address]qfurb[address] [place] [address]Dr. Lilajarrod Rogel ANTISCLERODERMA ABon 022 Antiscleroderma-70 Antibodies <0.2 Normal 0.0-0.9 [facility] Comment on above: Performed By: #### A NSCLER ####[facility] [address]blj[address] [place], [place] [address]Dr. Shahbaz Rogel RHEUMATOID FACTORon 06-23-20 RA Latex Turbid. <10.0 Normal <14.0 [facility] Comment on above: Performed By: #### R F ####[facility] [address]to[address] [place], [place] [address]Dr. Shahbaz Rogel CBC AUTO DIFFon 06-22-2022 BASO # 0.0 103/ul Normal 0.0-0.1 [facility] Comment on above: Performed By: #### C BC ####[facility] [address]qdtrdkpct[address] [place], [place] [address]Dr. Shahbaz Rogel Basophils/100 WBC (Bld) 0.5 % Normal 0.2-2.0 [facility] Comment on above: Performed By: #### C BC ####[facility] Agnfdaqpnf[address] [place], [place] [address]Dr. Shahbaz Rogel EO # 0.1 103/ul Normal 0.0-0.7 [facility] Comment on above: Performed By: #### C BC ####[facility] Ootzxkiyks[address] [place], [place] [address]Dr. Shahbaz Rogel Eosinophils/100 WBC (Bld) 3.4 % Normal 0.9-7.0 [facility] Comment on above: Performed By: #### C BC ####[facility] Gqpgnluafj[address] [place], [place] [address]Dr. Shahbaz Rogel Erythrocyte distribution width (RBC) [Ratio] 13.2 % Normal 11.0-15.0 [facility] Comment on above: Performed By: #### C BC ####[facility] Rfbxf[address]wwr[address] [place], [place] [address]Dr. Shahbaz Rogel Hematocrit (Bld) [Volume fraction] 45.6 % Normal 36.0-48.0 [facility] Comment on above: Performed By: #### C BC ####[facility] Sabdiiieiy[address] [place] [phone]. Shahbaz Rogel Hemoglobin (Bld) [Mass/Vol] 14.7 g/dL Normal 12.0-16.0 [facility] Comment on above: Performed By: #### C BC ####[facility] T[address]zpqlxwg[address] [place] [phone]. Shahbaz Rogel IG # 0.01 10e3/ul Normal 0.00-0.03 [facility] Comment on above: Performed By: #### C BC ####[facility] [address]fkflcvsek[address] [place] [address]Dr. Shahbaz Juan F IG % 0.3 % Normal 0.0-0.5 [facility] Comment on above: Performed By: #### C BC ####[facility] Memrnskwvt[address] [place], [place] [address]Dr. Shahbaz Juan F LYMPH # 1.0 103/ul Critically low 1.2-3.8 [facility] Comment on above: Performed By: #### C BC ####[facility] Qlblcxnqqz96[address] [place] [address]Dr. Shahbaz Juan F Lymphocytes/100 WBC (Bld) 25.7 % Normal 20.5-60.0 [facility] Comment on above: Performed By: #### C BC ####[facility] [address]qjlanjl[address] [place] [address]Dr. Shahbaz Juan F MANUAL DIFF REQ NO Normal [facility] Comment on above: Performed By: #### C BC ####[facility] [address]exp[address]wtpl[address] [place] [phone]. Shahbaz Juan F MCH (RBC) [Entitic mass] 28.1 pg Normal 26.7-34.0 [facility] Comment on above: Performed By: #### C BC ####[facility] [address]zitd[address] [place] [phone]. Shahbaz Juan F MCHC (RBC) [Mass/Vol] 32.2 g/dL Normal 29.9-35.2 [facility] Comment on above: Performed By: #### C BC ####[facility] Dbpftltczp4[address] [place] [phone]. Shahbaz Rogel MCV (RBC) [Entitic vol] 87.2 fL Normal 81.0-99.0 [facility] Comment on above: Performed By: #### C BC ####[facility] Fvnkajphbr63[address] [place] [phone]. Shahbaz Rogel MONO # 0.2 103/ul Critically low 0.3-0.8 [facility] Comment on above: Performed By: #### C BC ####[facility] Zlxlodknfu59[address] [place] [phone]. Shahbaz Juan F Monocytes/100 WBC (Bld) 6.0 % Normal 1.7-12.0 [facility] Comment on above: Performed By: #### C BC ####[facility] Rxlbmhoavz[address] [place], [place] [address]Dr. Shahbaz Rogel NEUT # 2.5 103/ul Normal 1.4-6.5 [facility] Comment on above: Performed By: #### C BC ####[facility] Wso[address]dkidq[address] [place], [place] [id number]. Shahbaz Juan F Neutrophils/100 WBC (Bld) 64.1 % Normal 43.0-75.0 [facility] Comment on above: Performed By: #### C BC ####[facility] Xanpwmqyee[address] [place], [place] [id number]. Shahbaz Juan F Platelet mean volume (Bld) [Entitic vol] 9.4 fL Critically low 9.5-13.5 [facility] Comment on above: Performed By: #### C BC ####[facility] Rvphvbbjjz[address] [place] [phone]. Shahbaz Juan F PLT 212 103/ul Normal 150-450 [facility] Comment on above: Performed By: #### C BC ####[facility] [address] [place], [place] [address]Dr. Shahbaz Rogel RBC 5.23 106/ul Normal 4.20-5.40 [facility] Comment on above: Performed By: #### C BC ####[facility] Maekelxvra[address] [place] [address]Dr. Lilajarrod Juan F WBC 3.9 103/ul Critically low 4.0-11.0 [facility] Comment on above: Performed By: #### C BC ####[facility] Ojcunwnted[address] [place] [address]Dr. Shahbaz Rogel PROF 14(COMP METB)on 022 Albumin [Mass/Vol] 4.1 g/dL Normal 3.4-5.0 [facility] Comment on above: Performed By: #### C MP ####[facility] Lkslaafibr[address] [place] [address]Dr. Shahbaz Rogel Albumin/Globulin [Mass ratio] 1.1 {ratio} Normal [facility] Comment on above: Performed By: #### C MP ####[facility] Uozxwnezkg[address] [place], [place] [address]Dr. Shahbaz Rogel ALP [Catalytic activity/Vol] 133 U/L Critically high 46-116 [facility] Comment on above: Performed By: #### C MP ####[facility] Mofusrdxng[address] [place], [place] [address]Dr. Lilajarrod Rogel ALT [Catalytic activity/Vol] 29 U/L Normal 14-59 [facility] Comment on above: Performed By: #### C MP ####[facility] Qwbmvotyyc05[address] [place] [address]Dr. Shahbaz Rogel Anion gap [Moles/Vol] 10.9 mmol/L Normal [facility] Comment on above: Performed By: #### C MP ####[facility] Jmhlbcvays38[address] [place] [address]Dr. Shahbaz Rogel AST [Catalytic activity/Vol] 23 U/L Normal 15-37 [facility] Comment on above: Performed By: #### C MP ####[facility] R[address]uaedjds[address] [place], [place] [address]Dr. Shahbaz Rogel Bilirubin [Mass/Vol] 0.3 mg/dL Normal 0.2-1.0 [facility] Comment on above: Performed By: #### C MP ####[facility] Smxyyzjnfq67[address] [place] [address]Dr. Shahbaz Rogel Calcium [Mass/Vol] 9.1 mg/dL Normal 8.5-10.1 [facility] Comment on above: Performed By: #### C MP ####[facility] Xsowhupwop[address] [place] [address]Dr. Shahbaz Rogel Chloride [Moles/Vol] 103 mmol/L Normal 98-107 [facility] Comment on above: Performed By: #### C MP ####[facility] Gyksxfrttb5[address] [place] [address]Dr. Shahbaz Rogel CO2 [Moles/Vol] 30.8 mmol/L Normal 21.0-32.0 [facility] Comment on above: Performed By: #### C MP ####[facility] [address]es[address]rrny[address] [place], [place] [address]Dr. Shahbaz Rogel Creatinine [Mass/Vol] 1.02 mg/dL Normal 0.55-1.02 [facility] Comment on above: Performed By: #### C MP ####[facility] Ariqclcink[address] [place], [place] [address]Dr. Shahbaz Rogel EGFR-AF ZAMBIAN >60 Normal >=60 [facility] Comment on above: Performed By: #### C MP ####[facility] Ylamvcyavg[address] [place], [place] [address]Dr. Shahbaz Rogel EGFR-NON AF ZAMBIAN 56 mL/min/1.73m2 Critically low >=60 [facility] Comment on above: Performed By: #### C MP ####[facility] [address]zbsjewiob[address] [place], [place] [address]Dr. Shahbaz Rogel Globulin (S) [Mass/Vol] 3.7 g/dL Normal [facility] Comment on above: Performed By: #### C MP ####[facility] Zecjxdtsnr[address] [place], [place] [address]Dr. Shahbaz Rogel Glucose [Mass/Vol] 80 mg/dL Normal 74-106 [facility] Comment on above: Performed By: #### C MP ####[facility] Efrlakjsae[address] [place] [phone]. Shahbaz Rogel Potassium [Moles/Vol] 3.7 mmol/L Normal 3.5-5.1 [facility] Comment on above: Performed By: #### C MP ####[facility] B[address]ustauof4959 [place], [place] [address]Da. Shahbaz Rogel Protein [Mass/Vol] 7.8 g/dL Normal 6.4-8.2 [facility] Comment on above: Performed By: #### C MP ####[facility] Yzdaovvcdo59[address] [place] [phone]. Shahbaz Rogel Sodium [Moles/Vol] 141 mmol/L Normal 136-145 [facility] Comment on above: Performed By: #### C MP ####[facility] Kduighrinm[address] [place] [phone]. Shahbaz Rogel Urea nitrogen [Mass/Vol] 10.0 mg/dL Normal 7.0-18.0 [facility] Comment on above: Performed By: #### C MP ####[facility] Knrcywyifg6[address] [place] [phone]. Shahbaz Rogel Urea nitrogen/Creatinine [Mass ratio] 9.8 mg/mg Normal [facility] Comment on above: Performed By: #### C MP ####[facility] Ftjzxevfev060[address] [place] [phone]. Shahbaz Rogel SED RATE [facility] 2021 SED RATE 17 mm/hr Normal <=30 [facility] Comment on above: Performed By: #### S EDR ####[facility] Sw[address]zxatpfe[address] [place] [phone]. Shahbaz Rogel CT CHEST HI RESOLUTIONon CT CHEST HI RESOLUTION Normal [facility] XR ANKLE RT MIN 3 VIEWSon XR ANKLE RT MIN 3 VIEWS Normal [facility] CT CHEST WO CONon 03-03-2022 CT CHEST WO CON Normal [facility] CT CSPINE WO CONon 2 CT CSPINE WO CON Normal [facility] XR CHEST 2 Von 06-02-2022 XR CHEST 2 V Normal [facility] XR STERNUM MIN 2 VIEWSon XR STERNUM MIN 2 VIEWS Normal Th [facility] CT HEAD WO CONon 03-02-2022 CT HEAD WO CON Normal [facility] CBC AUTO DIFFon 01-21-2022 BASO # 0.0 103/ul Normal 0.0-0.1 [facility] Comment on above: Performed By: #### C BC ####[facility] Lufxgmzxux[address] [place] [address]Dr. Shahbaz Rogel Basophils/100 WBC (Bld) 0.0 % Critically low 0.2-2.0 [facility] Comment on above: Performed By: #### C BC ####[facility] Lbejseixcu[address] [place], [place] [address]Dr. Shahbaz Rogel EO # 0.0 103/ul Normal 0.0-0.7 [facility] Comment on above: Performed By: #### C BC ####[facility] Jrorcyxxxo[address] [place], [place] [address]Dr. Shahbaz Rogel Eosinophils/100 WBC (Bld) 0.0 % Critically low 0.9-7.0 [facility] Comment on above: Performed By: #### C BC ####[facility] Itgtfhrxbl[address] [place], [place] [address]Dr. Shahbaz Rogel Erythrocyte distribution width (RBC) [Ratio] 14.2 % Normal 11.0-15.0 [facility] Comment on above: Performed By: #### C BC ####[facility] Edhimlwasn[address] [place], [place] [address]Dr. Shahbaz Rogel Hematocrit (Bld) [Volume fraction] 38.9 % Normal 36.0-48.0 [facility] Comment on above: Performed By: #### C BC ####[facility] Ogpyawzqot[address] [place], [place] [address]Dr. Shahbaz Rogel Hemoglobin (Bld) [Mass/Vol] 11.8 g/dL Critically low 12.0-16.0 [facility] Comment on above: Performed By: #### C BC ####[facility] Rlwxognhkv3946 [place] [address]Dr. Shahbaz Rogel IG # 0.03 10e3/ul Normal 0.00-0.03 [facility] Comment on above: Performed By: #### C BC ####[facility] Ezpjrzafrd[address] [place], [place] [address]DrChen Shabhaz Rogel IG % 0.4 % Normal 0.0-0.5 [facility] Comment on above: Performed By: #### C BC ####[facility] Yuhunippig[address] [place], [place] [address]DrChen Shahbaz Juan F LYMPH # 0.8 103/ul Critically low 1.2-3.8 [facility] Comment on above: Performed By: #### C BC ####[facility] Rbudshwewy[address] [place], [place] [address]DrChen Shahbaz Juan F Lymphocytes/100 WBC (Bld) 10.3 % Critically low 20.5-60.0 [facility] Comment on above: Performed By: #### C BC ####[facility] Cratafiujk[address] [place], [place] [address]DrChen Shahbaz Juan F MANUAL DIFF REQ NO Normal [facility] Comment on above: Performed By: #### C BC ####[facility] Gmrrqrevyy[address] [place], [place] [address]DrChen Shahbaz Rogel MCH (RBC) [Entitic mass] 27.1 pg Normal 26.7-34.0 [facility] Comment on above: Performed By: #### C BC ####[facility] Bmjffhvmvn[address] [place], [place] [address]DrChen Shahbaz Juan F MCHC (RBC) [Mass/Vol] 30.3 g/dL Normal 29.9-35.2 [facility] Comment on above: Performed By: #### C BC ####[facility] Fplmczrkap[address] [place], [place] [address]DrChen Shahbaz Juan F MCV (RBC) [Entitic vol] 89.2 fL Normal 81.0-99.0 [facility] Comment on above: Performed By: #### C BC ####[facility] Ogsuaocnyb[address] [place], [place] [address]Dr. Shahbaz Rogel MONO # 0.4 103/ul Normal 0.3-0.8 [facility] Comment on above: Performed By: #### C BC ####[facility] Dhguuhhoys7227 [place] [address]Dr. Shahbaz Rogel Monocytes/100 WBC (Bld) 4.7 % Normal 1.7-12.0 [facility] Comment on above: Performed By: #### C BC ####[facility] Sihaqewwjh9537 [place] [address]Dr. Shahbaz Rogel NEUT # 6.6 103/ul Critically high 1.4-6.5 [facility] Comment on above: Performed By: #### C BC ####[facility] Alxyldkctz[address] [place], [place] [address]Dr. Shahbaz Rogel Neutrophils/100 WBC (Bld) 84.6 % Critically high 43.0-75.0 [facility] Comment on above: Performed By: #### C BC ####[facility] Bjxpbqvrqh[address] [place], [place] [address]Dr. Shahbaz Rogel Platelet mean volume (Bld) [Entitic vol] 10.0 fL Normal 9.5-13.5 [facility] Comment on above: Performed By: #### C BC ####[facility] Kdfxtouwyp[address] [place], [place] [address]Dr. Shahbaz Rogel PLT 165 103/ul Normal 150-450 [facility] Comment on above: Performed By: #### C BC ####[facility] Bxgdpascbr[address] [place], [place] [address]Dr. Shahbaz Rogel RBC 4.36 106/ul Normal 4.20-5.40 [facility] Comment on above: Performed By: #### C BC ####[facility] Oexepnyioc[address] [place], [place] [address]Dr. Shahbaz Rogel WBC 7.8 103/ul Normal 4.0-11.0 [facility] Comment on above: Performed By: #### C BC ####[facility] Rsjyiegple[address] [place], [place] [address]Dr. Shahbaz Rogel ER URINE PROFILEon 2 Bilirubin Ql (U) Negative Normal NEGATIVE [facility] Comment on above: Performed By: #### E RUR ####[facility] [address]ghuyxdb[address] [place], [place] [address]Dr. Shahbaz Rogel Clarity (U) CLEAR Normal CLEAR [facility] Comment on above: Performed By: #### E RUR ####[facility] Qzfhbhrysh[address] [place], [place] [address]Dr. Shahbaz Rogel Color (U) LT. YELLOW Normal YELLOW [facility] Comment on above: Performed By: #### E RUR ####[facility] Tijcncrone[address] [place], [place] [address]Dr. Shahbaz Rogel ERUAHD A micrscopic examina tion will be performed if indicated. Normal [facility] Comment on above: Performed By: #### E RUR ####[facility] Owsipbyskn[address] [place], [place] [address]Dr. Shahbaz Rogel Glucose Ql (U) Negative Normal NEGATIVE [facility] Comment on above: Performed By: #### E RUR ####[facility] Znpzskyzak[address] [place], [place] [address]Dr. Shahbaz Rogel Hemoglobin Ql (U) Negative Normal NEGATIVE [facility] Comment on above: Performed By: #### E RUR ####[facility] Vwzwchvdgv[address] [place], [place] [address]Dr. Lilajarrod Rogel Ketones Ql (U) Negative Normal NEGATIVE [facility] Comment on above: Performed By: #### E RUR ####[facility] Yswlzuxqna[address] [place], [place] [address]Dr. Shahbaz Rogel LEUKOCYTES Negative Normal NEGATIVE [facility] Comment on above: Performed By: #### E RUR ####[facility] [address]tcklpowqy[address] [place], [place] [address]Dr. Lilajarrod Rogel Nitrite Ql (U) Negative Normal NEGATIVE [facility] Comment on above: Performed By: #### E RUR ####[facility] Ldyztpmkth[address] [place], [place] [address]Dr. Lilajarrod Rogel pH (U) 6.0 [pH] Normal 5-9 [facility] Comment on above: Performed By: #### E RUR ####[facility] Xajseamogp40[address] [place] [address]Dr. Shahbaz Rogel SPEC GRAVITY 1.020 Normal 1.005-<=1. 025 [facility] Comment on above: Performed By: #### E RUR ####[facility] Ubwetxqwsv88[address] [place] [address]Dr. Shahbaz Rogel UA PROTEIN Negative Normal NEGATIVE/ TRACE [facility] Comment on above: Performed By: #### E RUR ####[facility] Sdvmszqgyh43[address] [place] [address]Dr. Shahbaz Rogel UR MICRO IND NOT INDICATED Normal [facility] Comment on above: Performed By: #### E RUR ####[facility] Bnsfcimxso6465 [place] [address]Dr. Shahbaz Rogel Urobilinogen Qn (U) 0.2 {Melida'U}/dL Normal 0.2 - 1. 0 [facility] Comment on above: Performed By: #### E RUR ####[facility] [address]dcinwuqhr[address] [place], [place] [address]Dr. Shahbaz Rogel POINT OF CARE GLUCOSEon 01-01 Glucose [Mass/Vol] 151 mg/dL Critically high 74-106 [facility] Comment on above: Performed By: #### P OCGLUC ####[facility] [address]empsppvh[address] [place], [place] [address]Dr. Shahbaz Rogel Glucose [Mass/Vol] 248 mg/dL Critically high 74-106 [facility] Comment on above: Performed By: #### P OCGLUC ####[facility] Jskfkldkya[address] [place], [place] [address]Dr. Shahbaz Rogel PROF 14(COMP METB)on 022 Albumin [Mass/Vol] 2.8 g/dL Critically low 3.4-5.0 Th [facility] Comment on above: Performed By: #### C MP ####[facility] Zyiymcilqy[address] [place], [place] [address]Dr. Shahbaz Rogel Albumin/Globulin [Mass ratio] 0.9 {ratio} Normal [facility] Comment on above: Performed By: #### C MP ####[facility] Fkpgeujsfr7546 [place] [address]Dr. Shahbaz Rogel ALP [Catalytic activity/Vol] 90 U/L Normal 46-116 [facility] Comment on above: Performed By: #### C MP ####[facility] Fekcgkavmq87[address] [place] [address]Dr. Shahbaz Juan F ALT [Catalytic activity/Vol] 20 U/L Normal 14-59 [facility] Comment on above: Performed By: #### C MP ####[facility] Rdhofcvipo[address] [place], [place] [address]Dr. Shahbaz Rogel Anion gap [Moles/Vol] 8.9 mmol/L Normal [facility] Comment on above: Performed By: #### C MP ####[facility] [address]uztiwakqb[address] [place], [place] [address]Dr. Shahbaz Juan F AST [Catalytic activity/Vol] 14 U/L Critically low 15-37 [facility] Comment on above: Performed By: #### C MP ####[facility] J[address]wclhhwwb[address] [place], [place] [address]Dr. Lilajarrod Juan F Bilirubin [Mass/Vol] 0.1 mg/dL Critically low 0.2-1.3 [facility] Comment on above: Performed By: #### C MP ####[facility] [address]arovxxnr[address] [place], [place] [address]Dr. Shahbaz Rogel Calcium [Mass/Vol] 8.2 mg/dL Critically low 8.5-10.1 Th [facility] Comment on above: Performed By: #### C MP ####[facility] Kindencigc[address] [place], [place] [address]Dr. Shahbaz Rogel Chloride [Moles/Vol] 110 mmol/L Critically high 98-107 [facility] Comment on above: Performed By: #### C MP ####[facility] Nputxusyuy[address] [place], [place] [address]Dr. Shahbaz Rogel CO2 [Moles/Vol] 28.0 mmol/L Normal 22.0-30.0 [facility] Comment on above: Performed By: #### C MP ####[facility] O[address]mwgfgf[address] [place] [address]Dr. Shahbaz Rogel Creatinine [Mass/Vol] 0.78 mg/dL Normal 0.52-1.04 [facility] Comment on above: Performed By: #### C MP ####[facility] Ovtpdertvs0375 [place] [address]Dr. Shahbaz Rogel EGFR-AF ZAMBIAN >60 Normal >=60 [facility] Comment on above: Performed By: #### C MP ####[facility] Iiersjizfx27[address] [place] [address]Dr. Shahbaz Rogel EGFR-NON AF ZAMBIAN >60 Normal >=60 [facility] Comment on above: Performed By: #### C MP ####[facility] Okyrcfaigl[address] [place], [place] [address]Dr. Shahbaz Juan F Globulin (S) [Mass/Vol] 3.1 g/dL Normal [facility] Comment on above: Performed By: #### C MP ####[facility] Fqjatpxpgk[address] [place], [place] [address]Dr. Shahbaz Rogel Glucose [Mass/Vol] 121 mg/dL Critically high 74-106 [facility] Comment on above: Performed By: #### C MP ####[facility] Yvriktwtcp[address] [place], [place] [address]Dr. Shahbaz Rogel Potassium [Moles/Vol] 3.9 mmol/L Normal 3.4-5.0 [facility] Comment on above: Performed By: #### C MP ####[facility] Pcipmzxzqa[address] [place], [place] [address]Dr. Shahbaz Rogel Protein [Mass/Vol] 5.9 g/dL Critically low 6.1-8.2 Th [facility] Comment on above: Performed By: #### C MP ####[facility] [address]qjpnekxkt[address] [place], [place] [address]Dr. Shahbaz Rogel Sodium [Moles/Vol] 143 mmol/L Normal 137-145 [facility] Comment on above: Performed By: #### C MP ####[facility] [address]stkwwxjp[address] [place], [place] [address]Dr. Shahbaz Rogel Urea nitrogen [Mass/Vol] 26.0 mg/dL Critically high 7.0-18.0 [facility] Comment on above: Performed By: #### C MP ####[facility] [address]chhdndg[address] [place], [place] [address]Dr. Shahbaz Juan F Urea nitrogen/Creatinine [Mass ratio] 33.3 mg/mg Normal [facility] Comment on above: Performed By: #### C MP ####[facility] Dbhlfbtbes[address] [place], [place] [address]Dr. Shahbaz Juan F UGWHM-5-GAFNQZXNHTTrb 2021 Nuopl-6-Exbygruzaln, Serum 154 mg/dL Normal 101-187 [facility] Comment on above: Performed By: #### A LPHA-1 ####[facility] Ulcmpofqfh[address] [place], [place] [address]Dr. Shahbaz Juan F CBC AUTO DIFFon 01-20-2022 BASO # 0.0 103/ul Normal 0.0-0.1 [facility] Comment on above: Performed By: #### C BC ####[facility] Frzqkmitgx[address] [place], [place] [address]Dr. Shahbaz Juan F Basophils/100 WBC (Bld) 0.0 % Critically low 0.2-2.0 [facility] Comment on above: Performed By: #### C BC ####[facility] H[address]iaieurv[address] [place], [place] [address]Dr. Shahbaz Rogel EO # 0.0 103/ul Normal 0.0-0.7 [facility] Comment on above: Performed By: #### C BC ####[facility] Ezkhkczwqj[address] [place] [address]Dr. Lilajarrod Rogel Eosinophils/100 WBC (Bld) 0.0 % Critically low 0.9-7.0 [facility] Comment on above: Performed By: #### C BC ####[facility] Alnoae[address]ek[address] [place], [place] [address]Dr. Sahhbaz Rogel Erythrocyte distribution width (RBC) [Ratio] 13.7 % Normal 11.0-15.0 [facility] Comment on above: Performed By: #### C BC ####[facility] [address] [place], [place] [address]Dr. Shahbaz Rogel Hematocrit (Bld) [Volume fraction] 41.2 % Normal 36.0-48.0 [facility] Comment on above: Performed By: #### C BC ####[facility] Yunaohomfh[address] [place], [place] [address]Dr. Shahbaz Rogel Hemoglobin (Bld) [Mass/Vol] 12.8 g/dL Normal 12.0-16.0 [facility] Comment on above: Performed By: #### C BC ####[facility] Ruisxgrody[address] [place], [place] [address]Dr. Shahbaz Rogel IG # 0.10 10e3/ul Critically high 0.00-0.03 [facility] Comment on above: Performed By: #### C BC ####[facility] Jiobesiodb[address] [place], [place] [address]Dr. Shahbaz Rogel IG % 0.5 % Normal 0.0-0.5 [facility] Comment on above: Performed By: #### C BC ####[facility] Z[address]ok[address] [place], [place] [address]Dr. Shahbaz Rogel LYMPH # 0.7 103/ul Critically low 1.2-3.8 [facility] Comment on above: Performed By: #### C BC ####[facility] Trqupycelv[address] [place], [place] [address]Dr. Shahbaz Rogel Lymphocytes/100 WBC (Bld) 6.2 % Critically low 20.5-60.0 [facility] Comment on above: Result Comment: dif. not rqd. same as 01/18/22 Performed By: #### C BC ####[facility] [address] [place], [place] [address]Dr. Shahbaz Rogel MANUAL DIFF REQ NO Normal [facility] Comment on above: Performed By: #### C BC ####[facility] Lvczrchs[address] [place], [place] [address]Dr. Shahbaz Rogel MCH (RBC) [Entitic mass] 27.2 pg Normal 26.7-34.0 [facility] Comment on above: Performed By: #### C BC ####[facility] [address] [place] [address]Dr. Shahbaz Rogel MCHC (RBC) [Mass/Vol] 31.1 g/dL Normal 29.9-35.2 [facility] Comment on above: Performed By: #### C BC ####[facility] Rfqcfvbhfx[address] [place] [address]Dr. Shahbaz Rogel MCV (RBC) [Entitic vol] 87.5 fL Normal 81.0-99.0 [facility] Comment on above: Performed By: #### C BC ####[facility] [address]cppe[address] [place] [address]Dr. Shahbaz Juan F MONO # 0.2 103/ul Critically low 0.3-0.8 [facility] Comment on above: Performed By: #### C BC ####[facility] [address]se[address] [place], [place] [address]Dr. Shahbaz Juan F Monocytes/100 WBC (Bld) 1.7 % Normal 1.7-12.0 [facility] Comment on above: Performed By: #### C BC ####[facility] Ezmqnwyuzx[address] [place] [address]Dr. Shahbaz Rogel NEUT # 9.8 103/ul Critically high 1.4-6.5 [facility] Comment on above: Performed By: #### C BC ####[facility] X[address]pcjthpv[address] [place] [address]Dr. Shahbaz Juan F Neutrophils/100 WBC (Bld) 91.6 % Critically high 43.0-75.0 [facility] Comment on above: Performed By: #### C BC ####[facility] Oop[address]zimc[address] [place] [address]Dr. Shahbaz Juan F Platelet mean volume (Bld) [Entitic vol] 10.0 fL Normal 9.5-13.5 [facility] Comment on above: Performed By: #### C BC ####[facility] Ymnbzjwcgx[address] [place] [phone]. Shahbaz Rogel PLT 198 103/ul Normal 150-450 [facility] Comment on above: Performed By: #### C BC ####[facility] Bsq[address]udxle40[address] [place] [address]Dr. Shahbaz Rogel RBC 4.71 106/ul Normal 4.20-5.40 [facility] Comment on above: Performed By: #### C BC ####[facility] Czjatjwgmd[address] [place] [address]Dr. Shahbaz Rogel WBC 10.7 103/ul Normal 4.0-11.0 [facility] Comment on above: Performed By: #### C BC ####[facility] O[address]zsmc[address] [place] [address]Dr. Shahbaz Rogel POINT OF CARE GLUCOSEon 01-01 Glucose [Mass/Vol] 157 mg/dL Critically high 74-106 [facility] Comment on above: Performed By: #### P OCGLUC ####[facility] Kjqircocmx[address] [place] [address]Dr. Shahbaz Rogel Glucose [Mass/Vol] 225 mg/dL Critically high 74-106 [facility] Comment on above: Performed By: #### P OCGLUC ####[facility] Gftjbdlifi[address] [place] [address]Dr. Shahbaz Rogel Glucose [Mass/Vol] 185 mg/dL Critically high 74-106 [facility] Comment on above: Performed By: #### P OCGLUC ####[facility] Ffhlsgvidb2[address] [place] [address]Dr. Shahbaz Rogel Glucose [Mass/Vol] 134 mg/dL Critically high 74-106 [facility] Comment on above: Performed By: #### P OCGLUC ####[facility] Tvxfyiqz[address] [place], [place] [address]Dr. Shahbaz Juan F PROF 14(COMP METB)on 022 Albumin [Mass/Vol] 3.0 g/dL Critically low 3.4-5.0 [facility] Comment on above: Performed By: #### C MP ####[facility] Ekodxnplsp[address] [place] [address]Dr. Shahbaz Juan F Albumin/Globulin [Mass ratio] 0.9 {ratio} Normal [facility] Comment on above: Performed By: #### C MP ####[facility] Ftlifkazrm[address] [place] [phone]. Shahbaz Rogel ALP [Catalytic activity/Vol] 81 U/L Normal 46-116 [facility] Comment on above: Performed By: #### C MP ####[facility] Sehcsxgrik35[address] [place] [address]Dr. Shahbaz Juan F ALT [Catalytic activity/Vol] 14 U/L Normal 14-59 [facility] Comment on above: Performed By: #### C MP ####[facility] Zoanptxrny[address] [place], [place] [address]Dr. Shahbaz Rogel Anion gap [Moles/Vol] 13.1 mmol/L Normal [facility] Comment on above: Performed By: #### C MP ####[facility] Zghkujammy[address] [place], [place] [address]Dr. Shahbaz Juan F AST [Catalytic activity/Vol] 20 U/L Normal 15-37 [facility] Comment on above: Performed By: #### C MP ####[facility] Upbzqwdxnt[address] [place], [place] [address]Dr. Shahbaz Rogel Bilirubin [Mass/Vol] 0.3 mg/dL Normal 0.2-1.3 [facility] Comment on above: Performed By: #### C MP ####[facility] Tdkcutxuqe[address] [place], [place] [address]Dr. Shahbaz Rogel Calcium [Mass/Vol] 8.5 mg/dL Normal 8.5-10.1 [facility] Comment on above: Performed By: #### C MP ####[facility] Kwueetywpd[address] [place], [place] [address]Dr. Shahbaz Rogel Chloride [Moles/Vol] 107 mmol/L Normal 98-107 [facility] Comment on above: Performed By: #### C MP ####[facility] Tovkchzimj0617 [place] [address]Dr. Shahbaz Juan F CO2 [Moles/Vol] 24.0 mmol/L Normal 22.0-30.0 [facility] Comment on above: Performed By: #### C MP ####[facility] Wteqrblwsh7486 [place] [address]Dr. Lilajarrod Rogel Creatinine [Mass/Vol] 1.00 mg/dL Normal 0.52-1.04 [facility] Comment on above: Performed By: #### C MP ####[facility] Zesvvoyjhj[address] [place], [place] [address]Dr. Shahbaz Juan F EGFR-AF ZAMBIAN >60 Normal >=60 [facility] Comment on above: Performed By: #### C MP ####[facility] Kpwrhozard[address] [place], [place] [address]Dr. Shahbaz Rogel EGFR-NON AF ZAMBIAN 57 mL/min/1.73m2 Critically low >=60 [facility] Comment on above: Performed By: #### C MP ####[facility] Tynwoolzts[address] [place], [place] [address]Dr. Lilajarrod Rogel Globulin (S) [Mass/Vol] 3.4 g/dL Normal [facility] Comment on above: Performed By: #### C MP ####[facility] Ximpwcqokb6[address] [place], [place] [address]Dr. Shahbaz Rogel Glucose [Mass/Vol] 153 mg/dL Critically high 74-106 [facility] Comment on above: Performed By: #### C MP ####[facility] Didcuscuji[address] [place], [place] [address]Dr. Lilajarrod Rogel Potassium [Moles/Vol] 4.1 mmol/L Normal 3.4-5.0 [facility] Comment on above: Performed By: #### C MP ####[facility] Yppxvvglxq[address] [place], [place] [address]Dr. Shahbaz Rogel Protein [Mass/Vol] 6.4 g/dL Normal 6.1-8.2 [facility] Comment on above: Performed By: #### C MP ####[facility] Rbgdqkfzoa[address] [place], [place] [address]Dr. Shahbaz Rogel Sodium [Moles/Vol] 140 mmol/L Normal 137-145 [facility] Comment on above: Performed By: #### C MP ####[facility] Blldlcxjex5575 [place] [address]Dr. Shahbaz Rogel Urea nitrogen [Mass/Vol] 26.0 mg/dL Critically high 7.0-18.0 [facility] Comment on above: Performed By: #### C MP ####[facility] Webvepwvkf[address] [place], [place] [address]Dr. Shahbaz Rogel Urea nitrogen/Creatinine [Mass ratio] 26.5 mg/mg Normal [facility] Comment on above: Performed By: #### C MP ####[facility] Xwxapdjmtz[address] [place], [place] [address]Dr. Shahbaz Rogel BNPon 01-19-2022 Natriuretic peptide B (Bld) [Mass/Vol] 117.0 pg/mL Normal <=900.0 [facility] Comment on above: Performed By: #### B SECRET SERVICE AGENT, CMP ####[facility] Uollwzhtlq[address] [place], [place] [address]Dr. Shahbaz Rogel CBC AUTO DIFFon 01-19-2022 BASO # 0.0 103/ul Normal 0.0-0.1 [facility] Comment on above: Performed By: #### C BC ####[facility] Odqbjpjinp[address] [place], [place] [address]Dr. Shahbaz Rogel Basophils/100 WBC (Bld) 0.0 % Critically low 0.2-2.0 [facility] Comment on above: Performed By: #### C BC ####[facility] Qcymsadhzu7[address] [place], [place] [address]Dr. Shahbaz Rogel EO # 0.0 103/ul Normal 0.0-0.7 [facility] Comment on above: Performed By: #### C BC ####[facility] J[address]wivuuft[address] [place], [place] [address]Dr. Shahbaz Rogel Eosinophils/100 WBC (Bld) 0.0 % Critically low 0.9-7.0 [facility] Comment on above: Performed By: #### C BC ####[facility] Fjeqeeaaqg[address] [place], [place] [address]Dr. Shahbaz Rogel Erythrocyte distribution width (RBC) [Ratio] 13.4 % Normal 11.0-15.0 [facility] Comment on above: Performed By: #### C BC ####[facility] Necrsvikcw[address] [place], [place] [address]Dr. Shahbaz Rogel Hematocrit (Bld) [Volume fraction] 46.3 % Normal 36.0-48.0 [facility] Comment on above: Performed By: #### C BC ####[facility] Mjkvgxscmj[address] [place], [place] [address]Dr. Shahbaz Rogel Hemoglobin (Bld) [Mass/Vol] 14.3 g/dL Normal 12.0-16.0 [facility] Comment on above: Performed By: #### C BC ####[facility] Ukraarncog[address] [place], [place] [address]Dr. Shahbaz Rogel IG # 0.00 10e3/ul Normal 0.00-0.03 [facility] Comment on above: Performed By: #### C BC ####[facility] Kytvebrjif[address] [place], [place] [address]Dr. Shahbaz Rogel IG % 0.0 % Normal 0.0-0.5 [facility] Comment on above: Performed By: #### C BC ####[facility] V[address]dfqhq[address] [place], [place] [address]Dr. Shahbaz Rogel LYMPH # 0.6 103/ul Critically low 1.2-3.8 [facility] Comment on above: Performed By: #### C BC ####[facility] Mjkxhttpjr[address] [place], [place] [address]Dr. Shahbaz Rogel Lymphocytes/100 WBC (Bld) 14.2 % Critically low 20.5-60.0 [facility] Comment on above: Performed By: #### C BC ####[facility] Ctcmsltnhv[address] [place], [place] [address]Dr. Shahbaz Rogel MANUAL DIFF REQ NO Normal [facility] Comment on above: Performed By: #### C BC ####[facility] Kbvfyvnmzq4641 [place] [phone]. Shahbaz Juan F MCH (RBC) [Entitic mass] 27.7 pg Normal 26.7-34.0 [facility] Comment on above: Performed By: #### C BC ####[facility] Eeuezvahkk5230 [place] [phone]. Shahbaz Juan F MCHC (RBC) [Mass/Vol] 30.9 g/dL Normal 29.9-35.2 [facility] Comment on above: Performed By: #### C BC ####[facility] Mmpttjharf7[address] [place] [address]Dr. Lilajarrod Rogel MCV (RBC) [Entitic vol] 89.6 fL Normal 81.0-99.0 [facility] Comment on above: Performed By: #### C BC ####[facility] Wz[address]rzxle[address] [place], [place] [address]Dr. Shahbaz Rogel MONO # 0.0 103/ul Critically low 0.3-0.8 [facility] Comment on above: Performed By: #### C BC ####[facility] [address]kwvnldq[address] [place], [place] [address]Dr. Shahbaz Rogel Monocytes/100 WBC (Bld) 1.0 % Critically low 1.7-12.0 [facility] Comment on above: Performed By: #### C BC ####[facility] Vxcwrvmhxg[address] [place], [place] [address]Dr. Shahbaz Rogel NEUT # 3.5 103/ul Normal 1.4-6.5 [facility] Comment on above: Performed By: #### C BC ####[facility] Fafrjeuxyl[address] [place], [place] [address]Dr. Shahbaz Rogel Neutrophils/100 WBC (Bld) 84.8 % Critically high 43.0-75.0 [facility] Comment on above: Performed By: #### C BC ####[facility] Xuezvejufu[address] [place], [place] [address]Dr. Shahbaz Rogel Platelet mean volume (Bld) [Entitic vol] 9.8 fL Normal 9.5-13.5 [facility] Comment on above: Performed By: #### C BC ####[facility] Qddiwpvkxt7445 [place] [address]Dr. Shahbaz Rogel PLT 185 103/ul Normal 150-450 [facility] Comment on above: Performed By: #### C BC ####[facility] Nrildoprzh7869 [place] [phone]. Shahbaz Rogel RBC 5.17 106/ul Normal 4.20-5.40 [facility] Comment on above: Performed By: #### C BC ####[facility] Bqveiklttv8475 [place] [address]Dr. Shahbaz Rogel WBC 4.2 103/ul Normal 4.0-11.0 [facility] Comment on above: Performed By: #### C BC ####[facility] Iazzphqazu1095 [place] [address]Dr. Lilajarrod Juan F LACTATE/LACTIC ACIDon 2021 Lactate [Moles/Vol] 1.7 mmol/L Normal 0.7-2.0 [facility] Comment on above: Performed By: #### L ACT ####[facility] Pplizaaeag[address] [place], [place] [address]Dr. Shahbaz Rogel POINT OF CARE GLUCOSEon 01-01 Glucose [Mass/Vol] 173 mg/dL Critically high 74-106 [facility] Comment on above: Performed By: #### P OCGLUC ####[facility] Nerrtzgoay0512 [place] [address]Dr. Lilajarrod Juan F Glucose [Mass/Vol] 181 mg/dL Critically high 74-106 [facility] Comment on above: Performed By: #### P OCGLUC ####[facility] [address]tqcbhxo[address] [place], [place] [address]Dr. Shahbaz Rogel Glucose [Mass/Vol] 154 mg/dL Critically high 74-106 [facility] Comment on above: Performed By: #### P OCGLUC ####[facility] Gmysxqwqyn[address] [place], [place] [address]Dr. Shahbaz Rogel PROF 14(COMP METB)on 04-20-2 022 Albumin [Mass/Vol] 3.5 g/dL Normal 3.4-5.0 [facility] Comment on above: Performed By: #### B SECRET SERVICE AGENT, CMP ####[facility] Btglaldtby1365 [place] [address]Dr. Shahbaz Rogel Albumin/Globulin [Mass ratio] 0.9 {ratio} Normal [facility] Comment on above: Performed By: #### B SECRET SERVICE AGENT, CMP ####[facility] Xqloeoffxr1239 [place] [address]Dr. Shahbaz Rogel ALP [Catalytic activity/Vol] 107 U/L Normal 46-116 [facility] Comment on above: Performed By: #### B SECRET SERVICE AGENT, CMP ####[facility] Shexxthfbr[address] [place], [place] [address]Dr. Shahbaz Rogel ALT [Catalytic activity/Vol] 18 U/L Normal 14-59 [facility] Comment on above: Performed By: #### B SECRET SERVICE AGENT, CMP ####[facility] Ymfhwzcvnv7[address] [place], [place] [address]Dr. Shahbaz Rogel Anion gap [Moles/Vol] 14.1 mmol/L Normal [facility] Comment on above: Performed By: #### B SECRET SERVICE AGENT, CMP ####[facility] Ojagtiwiul[address] [place], [place] [address]Dr. Shahbaz Rogel AST [Catalytic activity/Vol] 19 U/L Normal 15-37 [facility] Comment on above: Performed By: #### B SECRET SERVICE AGENT, CMP ####[facility] Xmcpyzqvcf[address] [place], [place] [address]Dr. Shahbaz Rogel Bilirubin [Mass/Vol] 0.5 mg/dL Normal 0.2-1.3 [facility] Comment on above: Performed By: #### B SECRET SERVICE AGENT, CMP ####[facility] Rnijchnpfj[address] [place], [place] [address]Dr. Shahbaz Rogel Calcium [Mass/Vol] 8.5 mg/dL Normal 8.5-10.1 [facility] Comment on above: Performed By: #### B SECRET SERVICE AGENT, CMP ####[facility] Yutmmzxupf[address] [place], [place] [address]Dr. Shahbaz Rogel Chloride [Moles/Vol] 103 mmol/L Normal 98-107 [facility] Comment on above: Performed By: #### B SECRET SERVICE AGENT, CMP ####[facility] Colqbcmnni[address] [place], [place] [address]Dr. Shahbaz Rogel CO2 [Moles/Vol] 25.4 mmol/L Normal 22.0-30.0 [facility] Comment on above: Performed By: #### B SECRET SERVICE AGENT, CMP ####[facility] Fcbsgvooyz020[address] [place], [place] [address]Dr. Shahbaz Rogel Creatinine [Mass/Vol] 1.48 mg/dL Critically high 0.52-1.04 [facility] Comment on above: Performed By: #### B SECRET SERVICE AGENT, CMP ####[facility] Vvhnsjfruv[address] [place], [place] [address]Dr. Shahbaz Rogel EGFR-AF ZAMBIAN 44 mL/min/1.73m2 Critically low >=60 [facility] Comment on above: Performed By: #### B SECRET SERVICE AGENT, CMP ####[facility] Iazdjsidui[address] [place], [place] [address]Dr. Shahbaz Rogel EGFR-NON AF ZAMBIAN 36 mL/min/1.73m2 Critically low >=60 [facility] Comment on above: Performed By: #### B SECRET SERVICE AGENT, CMP ####[facility] Wnubpwdzng[address] [place], [place] [address]Dr. Shahbaz Juan F Globulin (S) [Mass/Vol] 3.7 g/dL Normal [facility] Comment on above: Performed By: #### B SECRET SERVICE AGENT, CMP ####[facility] A[address]dmjtvza04[address] [place], [place] [address]Dr. Shahbaz Juan F Glucose [Mass/Vol] 203 mg/dL Critically high 74-106 [facility] Comment on above: Performed By: #### B SECRET SERVICE AGENT, CMP ####[facility] Vgvmjqkhkb639[address] [place], [place] [address]Dr. Shahbaz Rogel Potassium [Moles/Vol] 3.5 mmol/L Normal 3.4-5.0 [facility] Comment on above: Performed By: #### B SECRET SERVICE AGENT, CMP ####[facility] Puielbxjts[address] [place], [place] [address]Dr. Shahbaz Rogel Protein [Mass/Vol] 7.2 g/dL Normal 6.1-8.2 [facility] Comment on above: Performed By: #### B SECRET SERVICE AGENT, CMP ####[facility] Mfrtoqdnwh[address] [place], [place] [address]Dr. Shahbaz Rogel Sodium [Moles/Vol] 139 mmol/L Normal 137-145 [facility] Comment on above: Performed By: #### B SECRET SERVICE AGENT, CMP ####[facility] Qddvdsssnm[address] [place], [place] [address]Dr. Shahbaz Juan F Urea nitrogen [Mass/Vol] 17.0 mg/dL Normal 7.0-18.0 [facility] Comment on above: Performed By: #### B SECRET SERVICE AGENT, CMP ####[facility] Udishjrvlx213[address] [place], [place] [address]Dr. Shahbaz Rogel Urea nitrogen/Creatinine [Mass ratio] 11.5 mg/mg Normal [facility] Comment on above: Performed By: #### B SECRET SERVICE AGENT, CMP ####[facility] Rakhrihdre[address] [place], [place] [address]Dr. Shahbaz Juan F BNPon 01-18-2022 Natriuretic peptide B (Bld) [Mass/Vol] 55.0 pg/mL Normal <=900.0 [facility] Comment on above: Performed By: #### C MP, BNP, HSTROPN ####[facility] [address]cwvwys[address] [place], [place] [address]Dr. Lilajarrod Juan F CBC W MANUAL DIFFon 01-19-20 22 ATYPICAL LYMPH # 0.12 103/ul Normal [facility] Comment on above: Performed By: #### C BCMAN ####[facility] Mtxsmzzllz[address] [place], [place] [address]Dr. Shahbaz Rogel ATYPICAL LYMPH % 2 % Normal [facility] Comment on above: Performed By: #### C BCMAN ####[facility] Cpunjyhgem[address] [place], [place] [address]Dr. Shahbaz Rogel BAND # 0.0 103/ul Normal 0.0-0.3 [facility] Comment on above: Performed By: #### C BCBRICE ####[facility] Llxmuadfxw16[address] [place] [phone]. Shahbaz Rogel BAND % 0 % Normal 0-5 [facility] Comment on above: Performed By: #### C BCBRICE ####[facility] Hziolatjer55[address] [place] [phone]. Yijarrod Rogel BASOM # 0.00 103/ul Normal 0.00-0.10 [facility] Comment on above: Performed By: #### C BCBRICE ####[facility] Yxyhtzpxfp0050 [place] [address]Dr. Shahbaz Rogel BASOM % 0.0 % Critically low 0.2-2.0 [facility] Comment on above: Performed By: #### C CAIN ####[facility] [address]odbnwfjr[address] [place], [place] [address]Dr. Yijarrod Rogel BLAST # Normal [facility] Comment on above: Performed By: #### C BCBRICE ####[facility] Elkkctived[address] [place], [place] [address]Dr. Yijarrod Rogel BLAST % Normal [facility] Comment on above: Performed By: #### C CAIN ####[facility] Qpnlxtgoff[address] [place], [place] [address]Dr. Shahbaz Rogel CORRECTED WBC Normal 4.0-11.0 [facility] Comment on above: Performed By: #### C CAIN ####[facility] Sy[address]weoywkt[address] [place], [place] [address]Dr. Yijarrod Rogel EOS # 0.25 103/ul Normal 0.00-0.70 [facility] Comment on above: Performed By: #### C BCBRICE ####[facility] Zcryhrrcof[address] [place], [place] [address]Dr. Shahbaz Rogel EOS% 4.0 % Normal 0.9-7.0 [facility] Comment on above: Performed By: #### C BCBRICE ####[facility] Ekdpjijvug[address] [place], [place] [address]Dr. Yilan Rogel HCT 46.8 % Normal 36.0-48.0 [facility] Comment on above: Performed By: #### Cheri BARLOW ####[facility] Jkcjywzrex7963 [place], [place] [address]Lu. Shahbaz Rogel HGB 14.9 g/dl Normal 12.0-16.0 [facility] Comment on above: Performed By: #### Cheri BARLOW ####[facility] Rweqggwisy4458 [place], [place] [address]Ri. Shahbaz Rogel LYMPHM # 0.68 103/ul Critically low 1.20-3.80 [facility] Comment on above: Performed By: #### Cheri BARLOW ####[facility] Hvakltdrji035[address] [place] [phone]. Shahbaz Rogel LYMPHM% 11.0 % Critically low 20.5-60.0 [facility] Comment on above: Performed By: #### Cheri BARLOW ####[facility] Nqbceemtgn6965 [place] [phone]. Shahbaz Rogel MCH 27.6 pg Normal 26.7-34.0 [facility] Comment on above: Performed By: #### Cheri BARLOW ####[facility] Qqrlvjjvrq6691 [place] [phone]. Shahbaz Rogel MCHC 31.8 g/dl Normal 29.9-35.2 [facility] Comment on above: Performed By: #### Cheri BARLOW ####[facility] Qnuhnexahc9459 [place] [phone]. Shahbaz Rogel MCV 86.8 fL Normal 81.0-99.0 [facility] Comment on above: Performed By: #### Cheri BARLOW ####[facility] Cljtadziso57[address] [place], [place] [address]Al. Shahbaz Rogel METAMYELOCYTE # Normal [facility] Comment on above: Performed By: #### Cheri BARLOW ####[facility] Dndmwtzhlz8[address] [place] [phone]. Shahbaz Rogel METAMYELOCYTE % Normal [facility] Comment on above: Performed By: #### Cheri BARLOW ####[facility] Prjfqsssxb9262 [place] [phone]. Shahbaz Rogel MONOM# 0.19 103/ul Critically low 0.30-0.80 [facility] Comment on above: Performed By: #### C CAIN ####[facility] Arlqoxneag3207 [place] [phone]. Shahbaz Rogel MONOM% 3.0 % Normal 1.7-12.0 [facility] Comment on above: Performed By: #### C CAIN ####[facility] Spslycknfz3440 [place] [phone]. Shahbaz Rogel MPV 9.6 fL Normal 9.5-13.5 [facility] Comment on above: Performed By: #### C CAIN ####[facility] [address]ys[address]rrxd[address] [place], [place] [address]Dr. Shahbaz Rogel MYELOCYTE # Normal [facility] Comment on above: Performed By: #### C CAIN ####[facility] Eacxncvypi[address] [place], [place] [address]Dr. Shahbaz Rogel MYELOCYTE % Normal [facility] Comment on above: Performed By: #### C CAIN ####[facility] Emkewfkxen[address] [place], [place] [address]Dr. Shahbaz Rogel NRBC Normal [facility] Comment on above: Performed By: #### C CAIN ####[facility] [address]vm[address]vqp[address] [place], [place] [address]Dr. Shahbaz Rogel PLT 203 103/ul Normal 150-450 [facility] Comment on above: Performed By: #### C CAIN ####[facility] Jynaaxnslx[address] [place] [phone]. Shahbaz Rogel RBC 5.39 106/ul Normal 4.20-5.40 [facility] Comment on above: Performed By: #### C CAIN ####[facility] [address]quavje[address] [place], [place] [address]Dr. Shahbaz Rogel RDW 13.7 % Normal 11.0-15.0 [facility] Comment on above: Performed By: #### C CAIN ####[facility] [address]mtkebf[address] [place], [place] [address]Dr. Shahbaz Rogel SEG # 4.96 103/ul Normal 1.40-6.50 [facility] Comment on above: Performed By: #### C BCMAN ####[facility] Pbqxaylcze9207 [place] [phone]. Shahbaz Rogel SEG % 80.0 % Critically high 43.0-75.0 [facility] Comment on above: Performed By: #### Cheri BCMAN ####[facility] [facility] [address] [place] [id number]. Shahbaz Rogel WBC 6.2 103/ul Normal 4.0-11.0 [facility] Comment on above: Performed By: #### Cheri BUCHANANMAN ####[facility] [address] [id number] Rogel CULTURE BLOODon 01-18-2022 Microscopic examination of blood, culture Culture Observations: No growth at [address] [facility] Comment on above: Performed By: #### B LDCX2 ####[facility] [address] [place], [place] [id number]. Shahbaz Rogel Microscopic examination of blood, culture Culture Observations: No growth at [address] [facility] Comment on above: Performed By: #### B LDCX1 ####[facility] T[address] [place], [place] [id number]. Shahbaz Rogel Covid-19 PCR (CVDTB)on 12-31 SARS-CoV-2 (COVID-19) RNA PAVAN+probe Ql (Unsp spec) Not detected Normal NOT DETECTED [facility] Comment on above: Result Comment: This test is not yet approved or cleared by the [place] FDA. When there are no FDA-approved or cleared tests available, and other criteria are met, FDA can make tests available under an emergency access mechanism called an Emergency Use Authorization (EUA). The EUA for this test is supported by the [place] of Health and Human Service's (HHS's) declaration that circumstances exist to justify the emergency use of in vitro diagnostics for the detection and/or diagnosis of the virus that causes COVID-19. This EUA will remain in effect (meaning this test can be used) for the duration of the COVID-19 declaration justifying emergency of IVDs, unless it is terminated or revoked by FDA (after which the test may no longer be used).When diagnostic testing is negative, the possibility of a false negative should be considered inthe context of a patient's recent exposures and the presence of clinical signs and symptomsconsistent with SARS-CoV-2. Performed By: #### C VDTBH ####[facility] [address] [place], [place] [address]Dr. [facility] D-DIMERon 01-18-2022 D-DIMER 0.29 mg/L FEU Normal 0.19-0.50 [facility] Comment on above: Performed By: #### D DIM ####[facility] Az[address] [place], [place] [address]Dr. [facility] D-DIMER COMMENTS SEE BELOW Normal [facility] Comment on above: Result Comment: Incr eases in D-Dimer concentration observed with thromboembolic events can be variable due to localization, size, and age of the thrombus. Therefore, a thromboembolic event cannot be diagnosed with certainty on the basis of the reference range. D-Dimers may also be elevated for a variety of disorders including: advanced age, , coronary disease, cancer, liver disease, infection, inflammation, hematoma, DIC, trauma, post-surgery, diabetes, thrombolytic or anticoagulant therapy, stress, and generalized hospitalization. Performed By: #### D DIM ####[facility] [address] [place], [place] [address]Dr. [facility] INFLUENZA A AND B AGon 01-18 INFLUANEGH SEE BELOW Normal [facility] Comment on above: Result Comment: Nega tive for Flu A protein angiten. Infection due to Flu A cannot be ruled out. Flu A angiten in the sample may be below the detection limit of the test. Performed By: #### I NFLUAB ####[facility] [address] [place], [place] [address]Dr. [facility] INFLUBNEGH SEE BELOW Normal [facility] Comment on above: Result Comment: Nega tive for Flu B protein antigen. Infection due to Flu B cannot be ruled out. Flu B antigen in the sample may be below the detection limit of the test. Performed By: #### I NFLUAB ####[facility] [address] [place] [address]Dr. Shahbaz Rogel INFLUENZA A AG Negative Normal NEGATIVE SEE COMMENT [facility] Comment on above: Performed By: #### I NFLUAB ####[facility] [address] [place] [address]Dr. Shahbaz Rogel INFLUENZA B AG Negative Normal NEGATIVE SEE COMMENT [facility] Comment on above: Performed By: #### I NFLUAB ####[facility] [address] [place], [place] [address]Dr. Shahbaz Rogel INTERNAL CONTROLS Within Normal Limits Normal Wi thin Normal Limits [facility] Comment on above: Performed By: #### I NFLUAB ####[facility] [address] [place], [place] [address]Dr. Shahbaz Rogel LACTATE/LACTIC ACIDon 2021 Lactate [Moles/Vol] 1.0 mmol/L Normal 0.7-2.0 [facility] Comment on above: Performed By: #### L ACT ####[facility] [address] [place], [place] [address]Dr. Shahbaz Rogel PROF 14(COMP METB)on 022 Albumin [Mass/Vol] 3.8 g/dL Normal 3.4-5.0 [facility] Comment on above: Performed By: #### C MP, BNP, HSTROPN ####[facility] [address] [place], [place] [address]Dr. Shahbaz Rogel Albumin/Globulin [Mass ratio] 1.0 {ratio} Normal [facility] Comment on above: Performed By: #### C MP, BNP, HSTROPN ####[facility] [address]ax[address] [place], [place] [address]Dr. Shahbaz Rogel ALP [Catalytic activity/Vol] 116 U/L Normal 46-116 [facility] Comment on above: Performed By: #### C MP, BNP, HSTROPN ####[facility] [address] [place], [place] [address]Dr. Shahbaz Rogel ALT [Catalytic activity/Vol] 16 U/L Normal 14-59 [facility] Comment on above: Performed By: #### C MP, BNP, HSTROPN ####[facility] [address] [place] [address]Dr. Shahbaz Rogel Anion gap [Moles/Vol] 9.4 mmol/L Normal [facility] Comment on above: Performed By: #### C MP, BNP, HSTROPN ####[facility] [address] [place] [address]Dr. Shahbaz Rogel AST [Catalytic activity/Vol] 19 U/L Normal 15-37 [facility] Comment on above: Performed By: #### C MP, BNP, HSTROPN ####[facility] Q[address] [place], [place] [address]Dr. Shahbaz Rogel Bilirubin [Mass/Vol] 0.5 mg/dL Normal 0.2-1.3 [facility] Comment on above: Performed By: #### C MP, BNP, HSTROPN ####[facility] [address] [place], [place] [address]Dr. Shahbaz Rogel Calcium [Mass/Vol] 8.9 mg/dL Normal 8.5-10.1 [facility] Comment on above: Performed By: #### C MP, BNP, HSTROPN ####[facility] [address] [place] [address]Dr. Shahbaz Rogel Chloride [Moles/Vol] 104 mmol/L Normal 98-107 [facility] Comment on above: Performed By: #### C MP, BNP, HSTROPN ####[facility] [address] [place], [place] [address]Dr. Shahbaz Rogel CO2 [Moles/Vol] 27.2 mmol/L Normal 22.0-30.0 [facility] Comment on above: Performed By: #### C MP, BNP, HSTROPN ####[facility] [address] [place] [address]Dr. Shahbaz Rogel Creatinine [Mass/Vol] 0.99 mg/dL Normal 0.52-1.04 [facility] Comment on above: Performed By: #### C MP, BNP, HSTROPN ####[facility] [address] [place] [address]Dr. Shahbaz Rogel EGFR-AF ZAMBIAN >60 Normal >=60 [facility] Comment on above: Performed By: #### C MP, BNP, HSTROPN ####[facility] [address] [place] [address]Dr. Shahbaz Rogel EGFR-NON AF ZAMBIAN 58 mL/min/1.73m2 Critically low >=60 [facility] Comment on above: Performed By: #### C MP, BNP, HSTROPN ####[facility] [address] [place] [address]Dr. Shahbaz Rogel Globulin (S) [Mass/Vol] 3.8 g/dL Normal [facility] Comment on above: Performed By: #### C MP, BNP, HSTROPN ####[facility] [address] [place], [place] [address]Dr. Shahbaz Rogel Glucose [Mass/Vol] 104 mg/dL Normal 74-106 [facility] Comment on above: Performed By: #### C MP, BNP, HSTROPN ####[facility] [address] [place], [place] [address]Dr. Shahbaz Rogel Potassium [Moles/Vol] 3.6 mmol/L Normal 3.4-5.0 [facility] Comment on above: Performed By: #### C MP, BNP, HSTROPN ####[facility] [address] [place], [place] [address]Dr. Shahbaz Rogel Protein [Mass/Vol] 7.6 g/dL Normal 6.1-8.2 [facility] Comment on above: Performed By: #### C MP, BNP, HSTROPN ####[facility] [address] [place], [place] [address]Dr. Shahbaz Rogel Sodium [Moles/Vol] 137 mmol/L Normal 137-145 [facility] Comment on above: Performed By: #### C MP, BNP, HSTROPN ####[facility] [address] [place] [address]Ut. Shahbaz Rogel Urea nitrogen [Mass/Vol] 9.0 mg/dL Normal 7.0-18.0 [facility] Comment on above: Performed By: #### C MP, BNP, HSTROPN ####[facility] [address] [place], [place] [address]Ef. Shahbaz Rogel Urea nitrogen/Creatinine [Mass ratio] 9.1 mg/mg Normal [facility] Comment on above: Performed By: #### C MP, BNP, HSTROPN ####[facility] [address] [place], [place] [address]Ap. Shahbaz Rogel TROPONIN, HIGH SENSITIVITYon 01-18-2022 HSTROP 6.4 pg/mL Normal 4.0-35.5 [facility] Comment on above: Result Comment: CUT- OFF POINTS HAVE BEEN ESTABLISHED BASED ON THE FOURTH UNIVERSAL DEFINITIONS OF MYOCARDIALINFARCTION. THE UPPER REFERENCE LIMIT (URL) OF TROPONIN, DEFINED THE 99TH PERCENTILE OFcTnI DISTRIBUTION IN A REFERENCE POPULATION, HAS BEEN CONFIRMED THE DECISION THRESHOLDFOR SC DIAGNOSIS. Performed By: #### C MP, BNP, HSTROPN ####[facility] [address] [place] [id number]. Shahbaz Rogel XR CHEST 2 Von 01-18-2022 XR CHEST 2 V Normal [facility] URINALYSIS REFLEXon 04-04-20 20 Appearance (U) CLEAR Normal CLEAR [facility] Comment on above: Order Comment: No: D o not add to previous draw Performed By: #### 1 0070, 86797, 03418, 72101, 32600, 66083 #### [facility] [address] [place] [address], [place] Bilirubin [Mass/Vol] Negative Normal NEGATIVE [facility] Comment on above: Order Comment: No: D o not add to previous draw Performed By: #### 1 0070, 92050, 14094, 07722, 29929, 50441 #### [facility] [address] [place] [address], [place] BLOOD Negative Normal NEGATIVE [facility] Comment on above: Order Comment: No: D o not add to previous draw Performed By: #### 1 0070, 11156, 87988, 34632, 06261, 20153 #### [facility] [address] [place] [address], [place] Color (U) YELLOW Normal YELLOW [facility] Comment on above: Order Comment: No: D o not add to previous draw Performed By: #### 1 0070, 61553, 21978, 37383, 65652, 08858 #### [facility] [address] [place] [address], [place] Glucose [Mass/Vol] Negative Normal NEGATIVE [facility] Comment on above: Order Comment: No: D o not add to previous draw Performed By: #### 1 0070, 81083, 07467, 93283, 92127, 99982 #### [facility] [address] [place] [address], [place] KETONE Negative Normal NEGATIVE [facility] Comment on above: Order Comment: No: D o not add to previous draw Performed By: #### 1 0070, 43040, 89476, 04641, 74228, 04915 #### [facility] [address] [place] [address], [place] LEUK ELIU Negative Normal NEGATIVE [facility] Comment on above: Order Comment: No: D o not add to previous draw Performed By: #### 1 0070, 27232, 42151, 69553, 16559, 47880 #### [facility] [address] [place] [address], [place] MICRO NOT DONE Normal [facility] Comment on above: Order Comment: No: D o not add to previous draw Result Comment: Micr oscopics not performed on urines with negative chemical reactions unless requested in original order Performed By: #### 1 0070, 32887, 64568, 56768, 44799, 76782 #### [facility] [address] [place] [address], [place] Nitrite Ql (U) Negative Normal NEGATIVE [facility] Comment on above: Order Comment: No: D o not add to previous draw Performed By: #### 1 0070, 10308, 12925, 69731, 13033, 35065 #### [facility] [address] [place] [address], [facility] pH (Bld) 5.0 Normal 5.0-8.0 [facility] Comment on above: Order Comment: No: D o not add to previous draw Performed By: #### 1 0070, 32495, 20872, 46605, 64758, 30403 #### [facility] [address] [facility] [place] [address], [facility] Protein (U) [Mass/Vol] Negative Normal NEGATIVE [facility] Comment on above: Order Comment: No: D o not add to previous draw Performed By: #### 1 0070, 60162, 67957, 33854, 07785, 72320 #### [facility] [address] [facility] [place] [address], [facility] SPEC GRAV 1.012 Low 1.015-1.02 0 [facility] Comment on above: Order Comment: No: D o not add to previous draw Performed By: #### 1 0070, 40945, 91173, 85733, 22998, 84405 #### [facility] [address] [facility] [place] [address], [facility] BASIC METABOLIC PANELon 07-0 -2019 Calcium [Mass/Vol] 8.4 mg/dL Low 8.6-10.3 [facility] Comment on above: Order Comment: No: D o not add to previous draw Performed By: #### 1 0070, 72619, 18559, 58417, 59438, 82511 #### [facility] [address] [place] [address], [facility] Chloride [Moles/Vol] 101 mmol/L Normal 98-107 [facility] Comment on above: Order Comment: No: D o not add to previous draw Performed By: #### 1 0070, 93296, 26841, 46473, 46194, 45056 #### [facility] [address] [place] [address], [facility] CO2 [Moles/Vol] 29 mmol/L Normal 21-31 [facility] Comment on above: Order Comment: No: D o not add to previous draw Performed By: #### 1 0070, 71708, 22313, 64231, 88338, 97018 #### [facility] [address] [place] [address], [facility] Creatinine [Mass/Vol] 0.79 mg/dL Normal 0.60-1.20 [facility] Comment on above: Order Comment: No: D o not add to previous draw Performed By: #### 1 0070, 34041, 80472, 82536, 67238, 83669 #### [facility] [address] [place] [address], [place] GFR/1.73 sq M predicted among blacks MDRD (S/P/Bld) [Vol rate/Area] mL/min/{1.73_m2} Normal >60 [facility] Comment on above: Order Comment: No: D o not add to previous draw Performed By: #### 1 0070, 48969, 40670, 92442, 31965, 40909 #### [facility] [address] [place] [address], [place] GFR/1.73 sq M predicted among non-blacks MDRD (S/P/Bld) [Vol rate/Area] mL/min/{1.73_m2} Normal >60 [facility] Comment on above: Order Comment: No: D o not add to previous draw Performed By: #### 1 0070, 59293, 59237, 55636, 18177, 19933 #### [facility] [address] [place] [address], [place] Glucose [Mass/Vol] 91 mg/dL Normal 70-100 [facility] Comment on above: Order Comment: No: D o not add to previous draw Performed By: #### 1 0070, 87179, 89644, 67698, 85641, 01133 #### [facility] [address] [facility] [place] [address], [facility] Potassium [Moles/Vol] 3.9 mmol/L Normal 3.5-5.1 [facility] Comment on above: Order Comment: No: D o not add to previous draw Performed By: #### 1 0070, 03766, 56081, 03476, 25075, 74212 #### [facility] [address] Sodium [Moles/Vol] 133 mmol/L Low 136-145 [facility] Comment on above: Order Comment: No: D o not add to previous draw Performed By: #### 1 0070, 50753, 40192, 76130, 05258, 02448 #### [facility] [address] Urea nitrogen [Mass/Vol] 10 mg/dL Normal 7-25 [facility] Comment on above: Order Comment: No: D o not add to previous draw Performed By: #### 1 0070, 53634, 41434, 43062, 79018, 14032 #### [facility] [address] [facility]. [address] CBC W/DIFFon 04-02-2020 ABS BASOPHILS 0.0 10*3/uL Normal 0.0-0.2 [facility] Comment on above: Order Comment: No: D o not add to previous draw Performed By: #### 1 0070, 27615, 68686, 41944, 62124, 15717 #### [facility] [address] [facility] [place] [address], [facility] ABS IMM GRANS 0.0 10*3/uL Normal 0.0-0.2 [facility] Comment on above: Order Comment: No: D o not add to previous draw Performed By: #### 1 0070, 11574, 81374, 46408, 20385, 37038 #### [facility] [address] [place] [address], [facility] ABS NEUTROPHILS 4.5 10*3/uL Normal 1.6-7.6 [facility] Comment on above: Order Comment: No: D o not add to previous draw Performed By: #### 1 0070, 24708, 82989, 00784, 92742, 78597 #### [facility] [address] [facility] [place] [address], [facility] Basophils/100 WBC (Bld) 0.2 % Normal 0.0-1.0 [facility] Comment on above: Order Comment: No: D o not add to previous draw Performed By: #### 1 0070, 01610, 90203, 57822, 48111, 25133 #### [facility] [address] [facility] [place] [address], [facility] Eosinophils (Bld) [#/Vol] 0.2 10*3/uL Normal 0.0-0.5 [facility] Comment on above: Order Comment: No: D o not add to previous draw Performed By: #### 1 0070, 55047, 58721, 52697, 58440, 88680 #### [facility] [address] [facility] [place] [address], [facility] Eosinophils/100 WBC (Bld) 3.6 % Normal 0.0-6.0 [facility] Comment on above: Order Comment: No: D o not add to previous draw Performed By: #### 1 0070, 98675, 77405, 37286, 33474, 79273 #### [facility] [address] [place] [address], [facility] Erythrocyte distribution width (RBC) [Ratio] 12.7 % Normal 11.5-15.0 [facility] Comment on above: Order Comment: No: D o not add to previous draw Performed By: #### 1 0070, 14424, 15156, 19614, 82467, 95708 #### [facility] [address] [facility] [place] [address], [facility] Hematocrit (Bld) [Volume fraction] 42.9 % Normal 36.0-45.0 [facility] Comment on above: Order Comment: No: D o not add to previous draw Performed By: #### 1 0070, 89213, 95465, 25634, 81725, 12737 #### [facility] [address] [facility] [address] Hemoglobin (Bld) [Mass/Vol] 13.5 g/dL Normal 12.0-15.0 [facility] Comment on above: Order Comment: No: D o not add to previous draw Performed By: #### 1 0070, 47391, 02747, 62946, 21112, 45163 #### [facility] [address] [facility]. [address] IMMATURE GRANS 0.3 % Normal 0.0-1.0 [facility] Comment on above: Order Comment: No: D o not add to previous draw Performed By: #### 1 0070, 05996, 24910, 20887, 37366, 68299 #### [facility] [address] [facility] [place] [address], [facility] Lymphocytes (Bld) [#/Vol] 1.1 10*3/uL Low 1.2-4.0 [facility] Comment on above: Order Comment: No: D o not add to previous draw Performed By: #### 1 0070, 60639, 60597, 10108, 39316, 02496 #### [facility] [address] [facility] [place] [address], [facility] Lymphocytes/100 WBC (Bld) 18.0 % Low 20.0-45.0 [facility] Comment on above: Order Comment: No: D o not add to previous draw Performed By: #### 1 0070, 38322, 02294, 23885, 11821, 43521 #### [facility] [address] [facility] MCH (RBC) [Entitic mass] 27.4 pg Normal 27.0-33.0 [facility] Comment on above: Order Comment: No: D o not add to previous draw Performed By: #### 1 0070, 37758, 74832, 80738, 29688, 58296 #### [facility] [address] [facility] MCHC (RBC) [Mass/Vol] 31.5 g/dL Low 32.0-35.0 [facility] Comment on above: Order Comment: No: D o not add to previous draw Performed By: #### 1 0070, 65335, 03326, 68630, 96745, 91885 #### [facility] [address] MCV (RBC) [Entitic vol] 87.0 fL Normal 82.0-98.0 [facility] Comment on above: Order Comment: No: D o not add to previous draw Performed By: #### 1 0070, 97717, 09849, 38955, 83982, 35431 #### [facility] [address] [place] [address], [facility] Monocytes (Bld) [#/Vol] 0.3 10*3/uL Normal 0.1-1.0 [facility] Comment on above: Order Comment: No: D o not add to previous draw Performed By: #### 1 0070, 03986, 71172, 49078, 47828, 53063 #### [facility] [address] MONOS 5.5 % Normal 5.0-12.0 [facility] Comment on above: Order Comment: No: D o not add to previous draw Performed By: #### 1 0070, 41062, 61502, 62685, 65502, 23805 #### [facility] [address] [place] [address], [facility] Neutrophils/100 WBC (Bld) 72.4 % High 40.0-72.0 [facility] Comment on above: Order Comment: No: D o not add to previous draw Performed By: #### 1 0070, 31585, 99355, 15858, 58329, 17026 #### [facility] [address] [place] [address], [place] Nucleated RBC/100 WBC (Bld) [Ratio] 0 % Normal 0-0 [facility] Comment on above: Order Comment: No: D o not add to previous draw Performed By: #### 1 0070, 61326, 31860, 05480, 38896, 25826 #### [facility] [address] [place] [address], [facility] PLAT CNT 264 10*3/uL Normal 150-400 [facility] Comment on above: Order Comment: No: D o not add to previous draw Performed By: #### 1 0070, 18178, 27055, 37708, 28989, 70978 #### [facility] [address] [place] [id number], [facility] RBC (Bld) [#/Vol] 4.93 10*6/uL Normal 3.80-5.00 [facility] Comment on above: Order Comment: No: D o not add to previous draw Performed By: #### 1 0070, 47131, 47991, 69174, 32409, 95857 #### [facility] [address] [place] [address], [place] WBC (Bld) [#/Vol] 6.17 10*3/uL Normal 4.00-10.60 [facility] Comment on above: Order Comment: No: D o not add to previous draw Performed By: #### 1 0070, 03514, 24776, 17508, 92594, 36505 #### [facility] [address] [place] [address], [facility] MAGNESIUM BLOODon 04-02-2020 Magnesium [Mass/Vol] 2.0 mg/dL Normal 1.9-2.7 [facility] Comment on above: Order Comment: No: D o not add to previous draw Performed By: #### 1 0070, 68086, 42858, 37973, 88301, 82259 #### [facility] [address] [place] [address], [facility] PHOSPHORUS BLOODon 0 Phosphate [Mass/Vol] 3.1 mg/dL Normal 2.5-5.0 [facility] Comment on above: Order Comment: No: D o not add to previous draw Performed By: #### 1 0070, 04555, 58846, 44660, 37338, 67340 #### [facility] [address] POC GLUCOSE LABon 04-02-2020 Glucose [Mass/Vol] 134 mg/dL High 70-100 [facility] Comment on above: Performed By: #### 1 0070, 85623, 91608, 26078, 25053, 60184 #### [facility] [address] [facility] [address] UFH HEPARIN ASSAYon 04-02-20 20 UNFRACTIONATED HEPARIN 0.91 IU/mL Critically high 0.30-0.7 0 [facility] Comment on above: Result Comment: Violet roxaban and Apixaban will interfere with the anti Xa assay used to monitor UFH and LMWH. RESULTS CHECKED AND CALLED. ACCURATELY READ BACK BY LYNN POLANCO, COLLEEN @ 7236 Performed By: #### 1 0070, 60748, 76727, 00155, 82401, 69330 #### [facility] [address] [place] [address], [facility] ALBUMIN BLOODon 04-01-2020 Albumin [Mass/Vol] 3.0 g/dL Low 3.5-5.7 [facility] Comment on above: Performed By: #### 1 0070, 30933, 47435, 44631, 54502, 08508 #### [facility] [address] [place] [address], [facility] BASIC METABOLIC PANELon 07-0 Calcium [Mass/Vol] 8.1 mg/dL Low 8.6-10.3 [facility] Comment on above: Order Comment: No: D o not add to previous draw Performed By: #### 1 0070, 86421, 11456, 73574, 49178, 99808 #### [facility] [address] [place] [address], [facility] Chloride [Moles/Vol] 105 mmol/L Normal 98-107 [facility] Comment on above: Order Comment: No: D o not add to previous draw Performed By: #### 1 0070, 65129, 73453, 01106, 09216, 41924 #### [facility] [address] [facility] [place] [address], [facility] CO2 [Moles/Vol] 26 mmol/L Normal 21-31 [facility] Comment on above: Order Comment: No: D o not add to previous draw Performed By: #### 1 0070, 89342, 08590, 54578, 07210, 63211 #### [facility] [address] [facility] [place] [address], [facility] Creatinine [Mass/Vol] 0.65 mg/dL Normal 0.60-1.20 [facility] Comment on above: Order Comment: No: D o not add to previous draw Performed By: #### 1 0070, 84973, 01190, 48938, 38523, 81979 #### [facility] [address] [place] [address], [facility] GFR/1.73 sq M predicted among blacks MDRD (S/P/Bld) [Vol rate/Area] mL/min/{1.73_m2} Normal >60 [facility] Comment on above: Order Comment: No: D o not add to previous draw Performed By: #### 1 0070, 19602, 11150, 98073, 41734, 32645 #### [facility] [address] [place] [address], [facility] GFR/1.73 sq M predicted among non-blacks MDRD (S/P/Bld) [Vol rate/Area] mL/min/{1.73_m2} Normal >60 [facility] Comment on above: Order Comment: No: D o not add to previous draw Performed By: #### 1 0070, 19698, 50061, 24679, 84854, 39462 #### [facility] [address] [place] [address], [place] Glucose [Mass/Vol] 87 mg/dL Normal 70-100 [facility] Comment on above: Order Comment: No: D o not add to previous draw Performed By: #### 1 0070, 12039, 77647, 39128, 76988, 54857 #### [facility] [address] [place] [address], [place] Potassium [Moles/Vol] 4.3 mmol/L Normal 3.5-5.1 [facility] Comment on above: Order Comment: No: D o not add to previous draw Performed By: #### 1 0070, 44431, 70795, 32958, 99090, 16436 #### [facility] [address] [place] [address], [place] Sodium [Moles/Vol] 136 mmol/L Normal 136-145 [facility] Comment on above: Order Comment: No: D o not add to previous draw Performed By: #### 1 0070, 42905, 49213, 58750, 73308, 71092 #### [facility] [address] [place] [address], [place] Urea nitrogen [Mass/Vol] 8 mg/dL Normal 7-25 [facility] Comment on above: Order Comment: No: D o not add to previous draw Performed By: #### 1 0070, 00879, 86132, 60989, 42592, 31794 #### [facility] [address] [place] [address], [facility] CBC W/DIFFon 04-01-2020 ABS BASOPHILS 0.0 10*3/uL Normal 0.0-0.2 [facility] Comment on above: Order Comment: No: D o not add to previous draw Performed By: #### 1 0070, 85912, 18699, 55901, 41068, 13430 #### [facility] [address] [place] [address], [facility] ABS IMM GRANS 0.0 10*3/uL Normal 0.0-0.2 [facility] Comment on above: Order Comment: No: D o not add to previous draw Performed By: #### 1 0070, 26341, 52928, 70483, 27581, 72777 #### [facility] [address] ABS NEUTROPHILS 3.4 10*3/uL Normal 1.6-7.6 [facility] Comment on above: Order Comment: No: D o not add to previous draw Performed By: #### 1 0070, 18755, 73640, 55295, 18423, 05323 #### [facility] [address] [place] [address], [facility] Basophils/100 WBC (Bld) 0.2 % Normal 0.0-1.0 [facility] Comment on above: Order Comment: No: D o not add to previous draw Performed By: #### 1 0070, 47308, 77226, 00649, 65127, 39780 #### [facility] [address] [place] [address], [facility] Eosinophils (Bld) [#/Vol] 0.1 10*3/uL Normal 0.0-0.5 [facility] Comment on above: Order Comment: No: D o not add to previous draw Performed By: #### 1 0070, 71270, 25864, 07180, 47351, 07488 #### [facility] [address] [place] [address], [facility] Eosinophils/100 WBC (Bld) 2.6 % Normal 0.0-6.0 [facility] Comment on above: Order Comment: No: D o not add to previous draw Performed By: #### 1 0070, 35583, 26807, 41970, 54221, 76143 #### [facility] [address] [facility] [place] [place] [address] [place] [address] Erythrocyte distribution width (RBC) [Ratio] 13.0 % Normal 11.5-15.0 [facility] Comment on above: Order Comment: No: D o not add to previous draw Performed By: #### 1 0070, 24287, 26888, 30837, 43211, 25613 #### [facility] [address] [facility] [address] Hematocrit (Bld) [Volume fraction] 40.9 % Normal 36.0-45.0 [facility] Comment on above: Order Comment: No: D o not add to previous draw Performed By: #### 1 0070, 69257, 73771, 55012, 58178, 95047 #### [facility] [address] [facility] [place] [address], [facility] Hemoglobin (Bld) [Mass/Vol] 12.8 g/dL Normal 12.0-15.0 [facility] Comment on above: Order Comment: No: D o not add to previous draw Performed By: #### 1 0070, 50028, 44261, 01984, 17361, 64036 #### [facility] [address] [facility] [place] [address], [facility] IMMATURE GRANS 0.6 % Normal 0.0-1.0 [facility] Comment on above: Order Comment: No: D o not add to previous draw Performed By: #### 1 0070, 41908, 95298, 11036, 21382, 85812 #### [facility] [address] [place] [address], [facility] Lymphocytes (Bld) [#/Vol] 1.2 10*3/uL Normal 1.2-4.0 [facility] Comment on above: Order Comment: No: D o not add to previous draw Performed By: #### 1 0070, 07158, 52659, 13930, 08108, 56647 #### [facility] [address] [place] [address], [facility] Lymphocytes/100 WBC (Bld) 23.7 % Normal 20.0-45.0 [facility] Comment on above: Order Comment: No: D o not add to previous draw Performed By: #### 1 0070, 99922, 59832, 21142, 85343, 91779 #### [facility] [address] [place] [address], [facility] MCH (RBC) [Entitic mass] 27.4 pg Normal 27.0-33.0 [facility] Comment on above: Order Comment: No: D o not add to previous draw Performed By: #### 1 0070, 99389, 49975, 72912, 90634, 61546 #### [facility] [address] [place] [address], [facility] MCHC (RBC) [Mass/Vol] 31.3 g/dL Low 32.0-35.0 [facility] Comment on above: Order Comment: No: D o not add to previous draw Performed By: #### 1 0070, 03804, 45358, 10055, 32119, 78678 #### [facility] [address] [place] [address], [facility] MCV (RBC) [Entitic vol] 87.6 fL Normal 82.0-98.0 [facility] Comment on above: Order Comment: No: D o not add to previous draw Performed By: #### 1 0070, 88709, 63713, 01988, 03152, 09667 #### [facility] [address] [place] [address], [facility] Monocytes (Bld) [#/Vol] 0.3 10*3/uL Normal 0.1-1.0 [facility] Comment on above: Order Comment: No: D o not add to previous draw Performed By: #### 1 0070, 61501, 69878, 09276, 41356, 44740 #### [facility] [address] [place] [address], [facility] MONOS 5.4 % Normal 5.0-12.0 [facility] Comment on above: Order Comment: No: D o not add to previous draw Performed By: #### 1 0070, 11726, 13177, 22846, 36177, 63462 #### [facility] [address] [place] [address], [facility] Neutrophils/100 WBC (Bld) 67.5 % Normal 40.0-72.0 [facility] Comment on above: Order Comment: No: D o not add to previous draw Performed By: #### 1 0070, 83409, 62706, 38347, 53480, 28057 #### [facility] [address] [facility] [place] [address], [facility] Nucleated RBC/100 WBC (Bld) [Ratio] 0 % Normal 0-0 [facility] Comment on above: Order Comment: No: D o not add to previous draw Performed By: #### 1 0070, 15747, 15496, 59349, 47980, 94856 #### [facility] [address] [place] [address], [facility] PLAT CNT 237 10*3/uL Normal 150-400 [facility] Comment on above: Order Comment: No: D o not add to previous draw Performed By: #### 1 0070, 39220, 86149, 06832, 96031, 72150 #### [facility] [address] [place], [place] [address] [place] [address] RBC (Bld) [#/Vol] 4.67 10*6/uL Normal 3.80-5.00 [facility] Comment on above: Order Comment: No: D o not add to previous draw Performed By: #### 1 0070, 95061, 54678, 13271, 19287, 71217 #### [facility] [address] [facility] [place] [address], [facility] WBC (Bld) [#/Vol] 4.98 10*3/uL Normal 4.00-10.60 [facility] Comment on above: Order Comment: No: D o not add to previous draw Performed By: #### 1 0070, 18975, 02536, 94424, 99445, 69064 #### [facility] [address] [facility] [place], [place] [id number] [place] [address] CHEST AND LATERALon 04-01-20 CHEST AND LATERAL [facility] Department of Radiology [address] [place], [place] [id number] Patient Name: EMIGDIO APODACA : 1965 Sex: F Age: Race: White Pt. Location: [id number] Patient Status: I Ordered Date: 04/01/2020 7:00:00 AM Completed Date: 04/01/2020 09:03 AM Requesting Provider: REBECCA THOMAS Attending Provider: MARJAN CHAUDHARI Report Copy To: Signs & Symptoms: Post Pacemaker/AICD Placement History: Comments: Check Pacemaker/AICD Lead Position, Chest X-ray PA \EANDE\ LAT in Dept ;DO NOT lift affected arm above shoulder. S/P pacemaker/ICD implant. Verify lead placement Exam: CHEST AND LATERAL CHEST AND LATERAL 04/01/2020 9:03 AM CLINICAL INDICATIONS: Post Pacemaker/AICD Placement TECHNOLOGIST COMMENTS: Post ICD implant verify position of leads QUESTION FOR THE RADIOLOGIST: Check Pacemaker/AICD Lead Position, Chest X-ray PA \EANDE\ LAT in Dept ;DO NOT lift affected arm above shoulder. S/P pacemaker/ICD implant. Verify lead placement PROTOCOL: AP(PA) and Lateral views were obtained. COMPARISON: None FINDINGS: Dual-lead AICD with the leads terminating in the expected location the right atrium and right ventricle. There appears to be somewhat hyperinflation the lungs. There is suggestion of left pleural effusion with superimposed airspace disease silhouetting the spine. No pneumothorax. IMPRESSION: No pneumothorax. Suggestion of left pleural effusion with superimposed airspace disease. Approved by:Anne Adams04/01/2020 9:57 AM. I, Shari Arteaga,have reviewed the images and reports Electronically signed: Shari Arteaga. Transcribed by: [email or web address], User Resident: ANNE VEGA Electronically Signed by: SHARI ARTEAGA @ 04/01/2020 10:12 AM I personally read this/these film(s) with this resident Normal [facility] Comment on above: Order Comment: No: D o not add to previous draw MAGNESIUM BLOODon 04-01-2020 Magnesium [Mass/Vol] 2.1 mg/dL Normal 1.9-2.7 [facility] Comment on above: Order Comment: No: D o not add to previous draw Performed By: #### 1 0070, 81758, 58414, 73541, 65865, 87952 #### [facility] [address] [place] [address], [facility] APTTon 03-31-2020 aPTT Coag (Bld) [Time] 28.3 s Normal 25.0-35.0 Th e [facility] Comment on above: Order Comment: No: D o not add to previous draw Result Comment: ALL RESULTS MUST BE INTERPRETED WITH RESPECT TO BLOOD DRAWING ARTIFACT OR DILUTION ERROR OF ANTICOAGULANT AT THE TIME OF SAMPLING. THE APTT SHOULD NOT BE USED TO MONITOR UNFRACTIONATED HEPARIN THERAPY, THIS LABORATORY NO LONGER HAS AN ESTABLISHED THERAPEUTIC RANGE BASED ON THE APTT. IT IS RECOMMENDED THAT THE UFH - HEPARIN ASSAY (ANTI-XA ACTIVITY) BE USED FOR THIS PURPOSE. Performed By: #### 1 0070, 61415, 59038, 65736, 01012, 98901 #### [facility] [address] [place] [address], [facility] BASIC METABOLIC PANELon 06-3 0-2020 Calcium [Mass/Vol] 7.8 mg/dL Low 8.6-10.3 [facility] Comment on above: Order Comment: No: D o not add to previous draw Performed By: #### 1 0070, 13454, 90097, 45551, 56603, 78230 #### [facility] [address] [place] [address], [facility] Chloride [Moles/Vol] 108 mmol/L High 98-107 [facility] Comment on above: Order Comment: No: D o not add to previous draw Performed By: #### 1 0070, 53717, 34916, 15507, 59594, 76540 #### [facility] [address] [place] [address], [facility] CO2 [Moles/Vol] 26 mmol/L Normal 21-31 [facility] Comment on above: Order Comment: No: D o not add to previous draw Performed By: #### 1 0070, 46831, 20768, 95603, 33929, 65972 #### [facility] [address] [place] [id number], [facility] Creatinine [Mass/Vol] 0.76 mg/dL Normal 0.60-1.20 [facility] Comment on above: Order Comment: No: D o not add to previous draw Performed By: #### 1 0070, 51520, 22141, 16824, 88514, 09027 #### [facility] [address] [place] [address], [place] GFR/1.73 sq M predicted among blacks MDRD (S/P/Bld) [Vol rate/Area] mL/min/{1.73_m2} Normal >60 [facility] Comment on above: Order Comment: No: D o not add to previous draw Performed By: #### 1 0070, 91832, 78478, 23490, 71432, 11358 #### [facility] [address] [place] [address], [place] GFR/1.73 sq M predicted among non-blacks MDRD (S/P/Bld) [Vol rate/Area] mL/min/{1.73_m2} Normal >60 [facility] Comment on above: Order Comment: No: D o not add to previous draw Performed By: #### 1 0070, 75680, 14649, 04039, 03418, 57642 #### [facility] [address] [place] [address], [place] Glucose [Mass/Vol] 97 mg/dL Normal 70-100 [facility] Comment on above: Order Comment: No: D o not add to previous draw Performed By: #### 1 0070, 26496, 50550, 22582, 47273, 51327 #### [facility] [address] [place] [address], [place] Potassium [Moles/Vol] 3.2 mmol/L Low 3.5-5.1 [facility] Comment on above: Order Comment: No: D o not add to previous draw Performed By: #### 1 0070, 38604, 76047, 61764, 17416, 04741 #### [facility] [address] [place] [address], [place] Sodium [Moles/Vol] 140 mmol/L Normal 136-145 [facility] Comment on above: Order Comment: No: D o not add to previous draw Performed By: #### 1 0070, 75398, 94977, 51105, 85395, 67890 #### [facility] [address] Urea nitrogen [Mass/Vol] 15 mg/dL Normal 7-25 [facility] Comment on above: Order Comment: No: D o not add to previous draw Performed By: #### 1 0070, 34168, 25926, 09891, 05588, 63182 #### [facility] [address] CBC W/DIFFon 03-31-2020 ABS BASOPHILS 0.0 10*3/uL Normal 0.0-0.2 [facility] Comment on above: Order Comment: No: D o not add to previous draw Performed By: #### 1 0070, 65178, 91978, 16437, 47064, 74830 #### [facility] [address] ABS IMM GRANS 0.0 10*3/uL Normal 0.0-0.2 [facility] Comment on above: Order Comment: No: D o not add to previous draw Performed By: #### 1 0070, 32167, 68244, 90596, 33899, 57775 #### [facility] [address] ABS NEUTROPHILS 3.2 10*3/uL Normal 1.6-7.6 [facility] Comment on above: Order Comment: No: D o not add to previous draw Performed By: #### 1 0070, 91719, 73737, 59182, 13255, 03634 #### [facility] [address] Basophils/100 WBC (Bld) 0.2 % Normal 0.0-1.0 [facility] Comment on above: Order Comment: No: D o not add to previous draw Performed By: #### 1 0070, 17300, 69310, 00384, 25459, 26677 #### [facility] [address] [place] [address], [facility] Eosinophils (Bld) [#/Vol] 0.0 10*3/uL Normal 0.0-0.5 [facility] Comment on above: Order Comment: No: D o not add to previous draw Performed By: #### 1 0070, 83033, 82735, 29358, 54042, 56261 #### [facility] [address] [place] [address], [facility] Eosinophils/100 WBC (Bld) 0.4 % Normal 0.0-6.0 [facility] Comment on above: Order Comment: No: D o not add to previous draw Performed By: #### 1 0070, 10342, 57577, 66684, 77297, 86259 #### [facility] [address] Erythrocyte distribution width (RBC) [Ratio] 13.0 % Normal 11.5-15.0 [facility] Comment on above: Order Comment: No: D o not add to previous draw Performed By: #### 1 0070, 11374, 80073, 30720, 77383, 76710 #### [facility] [address] [place] [address], [facility] Hematocrit (Bld) [Volume fraction] 34.4 % Low 36.0-45.0 [facility] Comment on above: Order Comment: No: D o not add to previous draw Performed By: #### 1 0070, 18809, 54235, 50344, 16703, 62552 #### [facility] [address] [place] [address], [facility] Hemoglobin (Bld) [Mass/Vol] 10.8 g/dL Low 12.0-15.0 [facility] Comment on above: Order Comment: No: D o not add to previous draw Performed By: #### 1 0070, 17305, 64193, 42601, 64331, 99514 #### [facility] [address] [place] [address], [facility] IMMATURE GRANS 0.4 % Normal 0.0-1.0 [facility] Comment on above: Order Comment: No: D o not add to previous draw Performed By: #### 1 0070, 45003, 69369, 99796, 09138, 74485 #### [facility] [address] [facility] [place] [address], [facility] Lymphocytes (Bld) [#/Vol] 1.2 10*3/uL Normal 1.2-4.0 [facility] Comment on above: Order Comment: No: D o not add to previous draw Performed By: #### 1 0070, 74554, 12102, 85351, 81141, 46340 #### [facility] [address] [facility] [place] [address], [facility] Lymphocytes/100 WBC (Bld) 25.7 % Normal 20.0-45.0 [facility] Comment on above: Order Comment: No: D o not add to previous draw Performed By: #### 1 0070, 75843, 76976, 29524, 03760, 39313 #### [facility] [address] [facility] [place] [address], [facility] MCH (RBC) [Entitic mass] 27.5 pg Normal 27.0-33.0 [facility] Comment on above: Order Comment: No: D o not add to previous draw Performed By: #### 1 0070, 91658, 73811, 43685, 47303, 77547 #### [facility] [address] [facility] [place] [address], [facility] MCHC (RBC) [Mass/Vol] 31.4 g/dL Low 32.0-35.0 [facility] Comment on above: Order Comment: No: D o not add to previous draw Performed By: #### 1 0070, 26413, 34806, 07556, 98611, 27851 #### [facility] [address] [facility] [place] [place] [address], [facility] MCV (RBC) [Entitic vol] 87.5 fL Normal 82.0-98.0 [facility] Comment on above: Order Comment: No: D o not add to previous draw Performed By: #### 1 0070, 95280, 05723, 66925, 83826, 56801 #### [facility] [address] [facility] [place] [address], [facility] Monocytes (Bld) [#/Vol] 0.3 10*3/uL Normal 0.1-1.0 [facility] Comment on above: Order Comment: No: D o not add to previous draw Performed By: #### 1 0070, 46822, 63125, 11386, 07760, 64757 #### [facility] [address] MONOS 6.2 % Normal 5.0-12.0 [facility] Comment on above: Order Comment: No: D o not add to previous draw Performed By: #### 1 0070, 01238, 34838, 58744, 58918, 87100 #### [facility] [address] [place] [address], [facility] Neutrophils/100 WBC (Bld) 67.1 % Normal 40.0-72.0 [facility] Comment on above: Order Comment: No: D o not add to previous draw Performed By: #### 1 0070, 77842, 34357, 16572, 61782, 76667 #### [facility] [address] [place] [address], [facility] Nucleated RBC/100 WBC (Bld) [Ratio] 0 % Normal 0-0 [facility] Comment on above: Order Comment: No: D o not add to previous draw Performed By: #### 1 0070, 35847, 44752, 55626, 58533, 42351 #### [facility] [address] [facility] [place] [address], [facility] PLAT CNT 210 10*3/uL Normal 150-400 [facility] Comment on above: Order Comment: No: D o not add to previous draw Performed By: #### 1 0070, 63901, 97286, 91475, 86615, 51689 #### [facility] [address] [place], [place] [id number] [place] [address] RBC (Bld) [#/Vol] 3.93 10*6/uL Normal 3.80-5.00 [facility] Comment on above: Order Comment: No: D o not add to previous draw Performed By: #### 1 0070, 28767, 39089, 44004, 84066, 73287 #### [facility] [address] [facility]. [address] WBC (Bld) [#/Vol] 4.71 10*3/uL Normal 4.00-10.60 [facility] Comment on above: Order Comment: No: D o not add to previous draw Performed By: #### 1 0070, 62380, 66504, 78142, 42829, 50281 #### [facility] [address] [facility]. [address] Cardiovascular Lab Reporton 03-31-[address] [facility] MR [facility]: [id number] Department of Physician: Rebecca Thomas M.D. Medicine Service Date: 03/31/2020 Division of Birthdate: 1965 Cardiology Room #: [id number] Adult Cardiovascular Services [facility] [address] [place] [address] Cardiovascular Laboratory Report INDICATIONS FOR PACEMAKER PLACEMENT: The patient is a 54-year-old woman, who presented with 2:1 second-degree heart block. She is quite symptomatic from this and because of the persistence of it and absence of other reversible causes, she will undergo permanent pacemaker implantation. DESCRIPTION OF PROCEDURE: After written informed consent was obtained, she was brought to the pacemaker laboratory in the fasting state. A contrast injection for venography of the subclavian was performed to delineate the course and patency. Then the left subclavicular fossa was prepped and draped in usual manner and a 1% Xylocaine solution infiltrated for local anesthesia. Utilizing percutaneous technique, the left subclavian was cannulated and under fluoroscopic guidance, guidewire was advanced to the level of the inferior vena cava to ensure intravascular placement. Then following initial sharp incision, meticulous blunt dissection was employed to create a subfascial pocket. Via 2 breakaway introducer sheaths, Bi[employer]ron[employer] Solia active fixation leads were placed in the right ventricular septal region and in the right ventricular and in the right atrial appendage. The active fixation coils of each were deployed and leads were sutured into place with a 0 silk suture. They were connected to a [employer] Edora dual-chamber pacing system. This was placed in the previously created subfascial pocket and sutured into place with a 0 silk suture. Via off field telemetry adequate sensing and pacing levels were determined. The right atrium had a pacing threshold of 0.6 V at 0.4 milliseconds pulse width and a P-wave amplitude of 1.5 mV. The impedance was 448 ohms. The right ventricular lead had a pacing threshold of 0.8 V at 0.4 milliseconds pulse width an R-wave amplitude of 5 mV and impedance of 741 ohms. The pocket was then irrigated with antibiotic solution. The fascia layer closed with a continuous 2-0 Vicryl suture. The subdermal area with interrupted 3-0 Biosyn sutures placed utilizing a buried knot technique and skin surface was closed with Dermabond glue. The wound was dressed with a Telfa pad and Tegaderm dressing. Sponge and needle counts were correct at the end of the case and prior to the procedure, the patient received 1 g of intravenous vancomycin as antibiotic prophylaxis. Conscious sedation was maintained throughout the case with intravenous midazolam and fentanyl. She was returned to the holding area in stable hemodynamic condition. FINAL IMPRESSIONS: 1. Dual-chamber pacemaker insertion. 2. Fluoroscopy. 3. Conscious sedation. 4. Contrast injection for venography of the upper extremity. Electronically Signed by: Rebecca Thomas M.D. 04/03/2020 10:48 A Rebecca Thomas M.D. Date Dict: 03/31/2020/01:20 P/Rebecca Thomas M.D. Date Trans: 03/31/2020 03:35 P/arturoo [id number] cc: Tony Hines M.D. Heart Failure/ Transplant Mailstop [address] [id number] Normal [facility] MAGNESIUM BLOODon 03-31-2020 Magnesium [Mass/Vol] 1.8 mg/dL Low 1.9-2.7 [facility] Comment on above: Order Comment: No: D o not add to previous draw Performed By: #### 1 0070, 59545, 56966, 27852, 86208, 91782 #### [facility] [address] [facility]. [address] PHOSPHORUS BLOODon 0 Phosphate [Mass/Vol] 2.7 mg/dL Normal 2.5-5.0 [facility] Comment on above: Order Comment: No: D o not add to previous draw Performed By: #### 1 0070, 92361, 34551, 86174, 13676, 39936 #### [facility] [address] [facility]. [address] PROTHROMBIN TIMEon 0 INR Coag (PPP) [Relative time] 1.11 {INR} Normal 0.91-1.16 [facility] Comment on above: Order Comment: No: D o not add to previous draw Result Comment: ACCC P RECOMMENDED INR FOR WARFARIN THERAPY --------- ------- CONDITION INR PROPHYLAXIS OF VENOUS THROMBOSIS 2-3 (HIGH-RISK SURGERY) TREATMENT OF VENOUS THROMBOSIS 2-3 TREATMENT OF PULMONARY EMBOLISM 2-3 PREVENTION OF SYSTEMIC EMBOLISM: 2-3 ACUTE MYOCARDIAL INFARCTION TISSUE HEART VALVES VALVULAR HEART DISEASE ATRIAL FIBRILLATION RECURRENT SYSTEMIC EMBOLISM MECHANICAL HEART VALVE 2.5-3.5 FROM: ORAL ANTICOAGULANTS. MECHANISM OF ACTION, CLINICAL EFFECTIVENESS, AND OPTIMAL THERAPEUTIC RANGE. CHEST 1995;108:231S-246S. Performed By: #### 1 0070, 38985, 89636, 02646, 93767, 65959 #### [facility] [address] PT Coag (PPP) [Time] 14.3 s Normal 12.3-14.8 [facility] Comment on above: Order Comment: No: D o not add to previous draw Result Comment: ALL RESULTS MUST BE INTERPRETED WITH RESPECT TO BLOOD DRAWING ARTIFACT OR DILUTION ERROR OF ANTICOAGULANT AT THE TIME OF SAMPLING. Performed By: #### 1 0070, 35296, 62666, 98763, 75897, 23310 #### [facility] [address] [facility]. [address] *SARS-CoV-2 COVID-19on 03-30 [id number] Not Detected Normal Not Detected [facility] Comment on above: Order Comment: No: D o not add to previous draw Performed By: #### 1 0070, 75946, 23893, 14889, 46185, 57294 #### [facility] [address] [place] [address], [facility] APTTon 03-30-2020 aPTT Coag (Bld) [Time] 24.9 s Low 25.0-35.0 Th e [facility] Comment on above: Order Comment: No: D o not add to previous draw Result Comment: ALL RESULTS MUST BE INTERPRETED WITH RESPECT TO BLOOD DRAWING ARTIFACT OR DILUTION ERROR OF ANTICOAGULANT AT THE TIME OF SAMPLING. THE APTT SHOULD NOT BE USED TO MONITOR UNFRACTIONATED HEPARIN THERAPY, THIS LABORATORY NO LONGER HAS AN ESTABLISHED THERAPEUTIC RANGE BASED ON THE APTT. IT IS RECOMMENDED THAT THE [facility] - HEPARIN ASSAY (ANTI-XA ACTIVITY) BE USED FOR THIS PURPOSE. Performed By: #### 5 7307, 35969 #### [facility] [address] BASIC METABOLIC PANELon - Calcium [Mass/Vol] 8.9 mg/dL Normal 8.6-10.3 [facility] Comment on above: Order Comment: No: D o not add to previous draw Performed By: #### 1 0070, 40132, 69404, 73652, 09857, 94740 #### [facility] [address] [place] [address], [facility] Chloride [Moles/Vol] 110 mmol/L High 98-107 [facility] Comment on above: Order Comment: No: D o not add to previous draw Performed By: #### 1 0070, 42457, 26093, 88143, 34635, 84450 #### [facility] [address] [facility] [place] [address], [facility] CO2 [Moles/Vol] 26 mmol/L Normal 21-31 [facility] Comment on above: Order Comment: No: D o not add to previous draw Performed By: #### 1 0070, 53965, 76646, 99348, 78978, 28574 #### [facility] [address] [facility] [place] [address], [facility] Creatinine [Mass/Vol] 0.86 mg/dL Normal 0.60-1.20 [facility] Comment on above: Order Comment: No: D o not add to previous draw Performed By: #### 1 0070, 02169, 18147, 76446, 03868, 14983 #### [facility] [address] [facility] [place] [address], [facility] GFR/1.73 sq M predicted among blacks MDRD (S/P/Bld) [Vol rate/Area] mL/min/{1.73_m2} Normal >60 [facility] Comment on above: Order Comment: No: D o not add to previous draw Performed By: #### 1 0070, 25789, 02049, 84430, 24628, 88762 #### [facility] [address] [place] [address], [facility] GFR/1.73 sq M predicted among non-blacks MDRD (S/P/Bld) [Vol rate/Area] mL/min/{1.73_m2} Normal >60 [facility] Comment on above: Order Comment: No: D o not add to previous draw Performed By: #### 1 0070, 13006, 26323, 18489, 19681, 10515 #### [facility] [address] [place] [address], [place] Glucose [Mass/Vol] 119 mg/dL High 70-100 [facility] Comment on above: Order Comment: No: D o not add to previous draw Performed By: #### 1 0070, 06538, 57569, 81593, 62168, 37938 #### [facility] [address] [place] [address], [facility] Potassium [Moles/Vol] 3.5 mmol/L Normal 3.5-5.1 [facility] Comment on above: Order Comment: No: D o not add to previous draw Performed By: #### 1 0070, 24782, 54551, 15567, 91829, 81741 #### [facility] [address] [place] [address], [place] Sodium [Moles/Vol] 142 mmol/L Normal 136-145 [facility] Comment on above: Order Comment: No: D o not add to previous draw Performed By: #### 1 0070, 40831, 97831, 84747, 83135, 87732 #### [facility] [address] [place] [address], [place] Urea nitrogen [Mass/Vol] 13 mg/dL Normal 7-25 [facility] Comment on above: Order Comment: No: D o not add to previous draw Performed By: #### 1 0070, 09540, 03102, 77291, 39360, 63683 #### [facility] [address] [place] [address], [facility] CBC W/DIFFon 03-30-2020 ABS BASOPHILS 0.0 10*3/uL Normal 0.0-0.2 [facility] Comment on above: Performed By: #### 5 0103 #### [facility] [address] [facility]. [address] ABS IMM GRANS 0.0 10*3/uL Normal 0.0-0.2 [facility] Comment on above: Performed By: #### 5 0103 #### [facility] [address] ABS NEUTROPHILS 5.7 10*3/uL Normal 1.6-7.6 [facility] Comment on above: Performed By: #### 5 0103 #### [facility] [address] Basophils/100 WBC (Bld) 0.0 % Normal 0.0-1.0 [facility] Comment on above: Performed By: #### 5 0103 #### [facility] [address] [place] [address], [facility] Eosinophils (Bld) [#/Vol] 0.0 10*3/uL Normal 0.0-0.5 [facility] Comment on above: Performed By: #### 5 3 #### [facility] [address] [place] [address], [facility] Eosinophils/100 WBC (Bld) 0.0 % Normal 0.0-6.0 [facility] Comment on above: Performed By: #### 5 3 #### [facility] [address] [place] [address], [facility] Erythrocyte distribution width (RBC) [Ratio] 12.9 % Normal 11.5-15.0 [facility] Comment on above: Performed By: #### 5 0103 #### [facility] [address] [facility] [address] Hematocrit (Bld) [Volume fraction] 36.1 % Normal 36.0-45.0 [facility] Comment on above: Performed By: #### 5 0103 #### [facility] [address] [facility] [place] [address], [facility] Hemoglobin (Bld) [Mass/Vol] 11.5 g/dL Low 12.0-15.0 [facility] Comment on above: Performed By: #### 5 0103 #### [facility] [address] IMMATURE GRANS 0.5 % Normal 0.0-1.0 [facility] Comment on above: Performed By: #### 5 0103 #### [facility] [address] Lymphocytes (Bld) [#/Vol] 0.6 10*3/uL Low 1.2-4.0 [facility] Comment on above: Performed By: #### 5 0103 #### [facility] [address] Lymphocytes/100 WBC (Bld) 9.3 % Low 20.0-45.0 [facility] Comment on above: Performed By: #### 5 0103 #### [facility] [address] [facility]. [address] MCH (RBC) [Entitic mass] 27.4 pg Normal 27.0-33.0 [facility] Comment on above: Performed By: #### 5 3 #### [facility] [address] MCHC (RBC) [Mass/Vol] 31.9 g/dL Low 32.0-35.0 [facility] Comment on above: Performed By: #### 102 #### [facility] [address] [facility] [place] [address], [facility] MCV (RBC) [Entitic vol] 86.0 fL Normal 82.0-98.0 [facility] Comment on above: Performed By: #### 102 #### [facility] [address] [facility] [place] [address], [facility] Monocytes (Bld) [#/Vol] 0.2 10*3/uL Normal 0.1-1.0 [facility] Comment on above: Performed By: #### 102 #### [facility] [address] MONOS 2.5 % Low 5.0-12.0 [facility] Comment on above: Performed By: #### 102 #### [facility] [address] Neutrophils/100 WBC (Bld) 87.7 % High 40.0-72.0 [facility] Comment on above: Performed By: #### 102 #### [facility] [address] Nucleated RBC/100 WBC (Bld) [Ratio] 0 % Normal 0-0 [facility] Comment on above: Performed By: #### 5 102 #### [facility] [address] [facility] [place] [address], [facility] PLAT CNT 261 10*3/uL Normal 150-400 [facility] Comment on above: Performed By: #### 102 #### [facility] [address] [place] [address], [facility] RBC (Bld) [#/Vol] 4.20 10*6/uL Normal 3.80-5.00 [facility] Comment on above: Performed By: #### 102 #### [facility] [address] WBC (Bld) [#/Vol] 6.47 10*3/uL Normal 4.00-10.60 [facility] Comment on above: Performed By: #### 5 0103 #### [facility] [address] [facility] [address] FREE T4on 03-30-2020 Free T4 [Mass/Vol] 1.48 ng/dL Normal 0.71-1.85 [facility] Comment on above: Performed By: #### 1 0070, 74722, 15654, 99495, 90151, 20634 #### [facility] [address] [facility]. [address] MAGNESIUM BLOODon 03-30-2020 Magnesium [Mass/Vol] 2.0 mg/dL Normal 1.9-2.7 [facility] Comment on above: Order Comment: No: D o not add to previous draw Performed By: #### 1 0070, 81323, 46459, 20840, 71514, 51603 #### [facility] [address] [facility] [place] [address], [facility] PHOSPHORUS BLOODon 0 Phosphate [Mass/Vol] 2.8 mg/dL Normal 2.5-5.0 [facility] Comment on above: Order Comment: No: D o not add to previous draw Performed By: #### 1 0070, 68697, 07354, 02689, 59376, 08689 #### [facility] [address] [facility] [place] [address], [facility] PROTHROMBIN TIMEon 0 INR Coag (PPP) [Relative time] 1.21 {INR} High 0.91-1.16 [facility] Comment on above: Order Comment: No: D o not add to previous draw Result Comment: ACCC P RECOMMENDED INR FOR WARFARIN THERAPY --------- ------- CONDITION INR PROPHYLAXIS OF VENOUS THROMBOSIS 2-3 (HIGH-RISK SURGERY) TREATMENT OF VENOUS THROMBOSIS 2-3 TREATMENT OF PULMONARY EMBOLISM 2-3 PREVENTION OF SYSTEMIC EMBOLISM: 2-3 ACUTE MYOCARDIAL INFARCTION TISSUE HEART VALVES VALVULAR HEART DISEASE ATRIAL FIBRILLATION RECURRENT SYSTEMIC EMBOLISM MECHANICAL HEART VALVE 2.5-3.5 FROM: ORAL ANTICOAGULANTS. MECHANISM OF ACTION, CLINICAL EFFECTIVENESS, AND OPTIMAL THERAPEUTIC RANGE. CHEST 1995;108:231S-246S. Performed By: #### 5 7307, 94690 #### [facility] [address] PT Coag (PPP) [Time] 15.4 s High 12.3-14.8 [facility] Comment on above: Order Comment: No: D o not add to previous draw Result Comment: ALL RESULTS MUST BE INTERPRETED WITH RESPECT TO BLOOD DRAWING ARTIFACT OR DILUTION ERROR OF ANTICOAGULANT AT THE TIME OF SAMPLING. Performed By: #### 5 7307, 04931 #### [facility] [address] [place] [address], [facility] TROPONIN-Ion 03-30-2020 Troponin I.cardiac [Mass/Vol] 0.02 ng/mL Normal 0.00-0.04 [facility] Comment on above: Order Comment: No: D o not add to previous draw Result Comment: REFE RENCE RANGES: 0.00 - 0.04 ng/ml NORMAL 0.05 - 0.50 ng/ml INDETERMINATE > 0.50 ng/ml CONSISTENT WITH AN M.I. Performed By: #### 1 0070, 87072, 24392, 72117, 01323, 04968 #### [facility] [address] [place] [address], [facility] Troponin I.cardiac [Mass/Vol] 0.04 ng/mL Normal 0.00-0.04 [facility] Comment on above: Order Comment: No: D o not add to previous draw Result Comment: REFE RENCE RANGES: 0.00 - 0.04 ng/ml NORMAL 0.05 - 0.50 ng/ml INDETERMINATE > 0.50 ng/ml CONSISTENT WITH AN M.I. Performed By: #### 3 5200 #### [facility] [address] [facility]. [address] Troponin I.cardiac [Mass/Vol] 0.04 ng/mL Normal 0.00-0.04 [facility] Comment on above: Order Comment: No: D o not add to previous draw Result Comment: REFE RENCE RANGES: 0.00 - 0.04 ng/ml NORMAL 0.05 - 0.50 ng/ml INDETERMINATE > 0.50 ng/ml CONSISTENT WITH AN M.I. Performed By: #### 1 0070, 06377, 03827, 34636, 70303, 51391 #### [facility] [address] TSH3 WITH REFLEX FT4on 03-30 TSH 3RD GENERATION 0.02 uIU/mL Low 0.34-5.60 [facility] Comment on above: Performed By: #### 1 0070, 55359, 81610, 70581, 54773, 69220 #### [facility] [address] [facility]. [address] Vital Signs Date Time Vital Sign Value Performing Clinician Patrick chen 08-12-2022 15:32-0500 Body temperature 98.1 [degF] MD Tony Turner Work Phone: [facility] 08-12-2022 15:32-0500 Diastolic blood pressure 69 mm[Hg] MD Tony Turner Work Phone: [facility] 08-12-2022 15:32-0500 Heart rate 78 /min MD Tony Turner Work Phone: [facility] 08-12-2022 15:32-0500 Respiratory rate 16 /min MD Tony Turner Work Phone: [facility] 08-12-2022 15:32-0500 SaO2% (BldA) [Mass fraction] 94 % MD Tony Turner Work Phone: [facility] 08-12-2022 15:32-0500 Systolic blood pressure 129 mm[Hg] MD Tony Turner Work Phone: [facility] 08-12-2022 11:00-0500 Inhaled oxygen flow rate 3 L/min MD Tony Turner Work Phone: [facility] 08-11-2022 12:39-0500 Body height 152.4 cm MD Tony Turner Work Phone: [facility] 08-11-2022 06:00-0500 Body weight 44.9 kg MD Tony Turner Work Phone: [facility] 08-10-2022 15:03-0500 Body mass index (BMI) [Ratio] 19.1 kg/m2 MD Tony Turner Work Phone: [facility] 08-03-2022 14:27-0400 Body weight 0 kg MD Tony Turner Work Phone: [facility] Encounters Encounter Date Encounter Type Care Provider Facility Start: 10-24-2023 End: 10-24-[address] [facility] Start: 08-21-2023 ambulatory Alejandro Flaherty acility:[facility] Start: 04-26-2023 End: 04-26-[address] [facility] Start: 01-03-2023 End: 01-07-2023 Evaluation and management of inpatient DR TONY TURNER . Facility:[facility] Start: 11-01-2022 End: 11-02-[address] TONY TURNER . Facility:[facility] Start: 10-25-2022 End: 10-25-20[facility] Start: 09-30-2022 End: 10-01-[address] ROSALINA RESENDIZ Facility:[facility] Start: 09-02-2022 End: 09-02-2022 ambulatory MD Tony Turner Work Phone: [facility] Work Phone: Start: 09-02-2022 End: 09-02-2022 Patient encounter procedure MD Tony Turner Work Phone: [facility] Start: 08-25-2022 End: 08-25-[address] ROSALINA RESENDIZ Facility:[facility] Start: 08-10-2022 End: 08-12-2022 Admission to same day surgery center MD Tony Turner Work Phone: [facility] Start: 08-10-2022 End: 08-12-2022 ambulatory MD Tony Turenr Work Phone: [facility] Work Phone: Start: 08-08-2022 End: 08-08-2022 ambulatory MD Tony Turner Work Phone: [facility] Work Phone: Start: 08-08-2022 End: 08-08-2022 Departed Referred MD Tony Turner Work Phone: [facility] Start: 08-05-2022 End: 08-05-2022 ambulatory MD Tony Turner Work Phone: [facility] Work Phone: Start: 08-05-2022 End: 08-05-2022 Patient encounter procedure MD Tony Turner Work Phone: [facility] Start: 07-30-2022 End: 07-30-[address] ROSALINA RESENDIZ Facility:[facility] Start: 07-04-2022 End: 07-06-[address] TONY Siddiqui Facility:[facility] Start: 07-04-2022 End: 07-04-[address] ALBERTO FERRO Facility:[facility] Start: 06-29-2022 Encounter for preprocedural laboratory examination NADEGE GARDNER . [facility] Start: 06-27-2022 End: 06-28-2022 ambulatory NADEGE GARDNER . Facility:[facility] Start: 06-27-2022 End: 06-28-2022 Encounter for preprocedural laboratory examination NADEGE GARDNER . Facility:[facility] Start: 06-22-2022 End: 06-23-2022 ambulatory NADEGE GARDNER . Facility:[facility] Start: 06-20-2022 End: 06-20-[address] TONY TURNER . Facility:[facility] Start: 06-20-2022 End: 06-21-2022 ambulatory NADEGE GARDNER . Facility:[facility] Start: 03-03-[address] TONY TURNER . Facili ty:[facility] Start: 03-02-2022 End: 03-03-[address] TONY TURNER . Facility:[facility] Start: 01-18-2022 End: 01-21-2022 Evaluation and management of inpatient DR TONY TURNER . Facility: Start: 03-30-2020 End: 04-06-2020 Evaluation and management of inpatient EMMY RODRIGUEZD Facility:[facility] Procedures Date Procedure Procedure Detail Performing Clinician Start: 09-02-2022 Plain chest X-ray MD Torres Work Phone: Start: 08-12-2022 End: 08-12-2022 Plain chest X-ray MD Tony Turner Work Phone: Start: 08-11-2022 Plain chest X-ray MD Torres Work Phone: Start: 08-10-2022 Acid fast bacilli culture MD Tony Turner Work Phone: Start: 08-10-2022 Acid fast stain method MD Tony Turner Work Phone: Start: 08-10-2022 Aerobic microbial culture MD Tony Turner Work Phone: Start: 08-10-2022 Anaerobic microbial culture MD Tony Turner Work Phone: Start: 08-10-2022 Investigation of transfusion reaction MD Tony Turner Work Phone: Start: 08-10-2022 Mycology culture MD French Turner Work Phone: Start: 08-10-2022 Plain chest X-ray MD Ahuja Jesúsgabby Work Phone: Start: 08-10-2022 Opening of chest MD French perez Jesúsgabby Work Phone: Start: 08-05-2022 Urine culture MD Perez lao Jose Luis Work Phone: Start: 08-05-2022 Plain chest X-ray MD Ahuja Jesúsgabby Work Phone: Start: 03-31-2020 INSERT PACE. DUAL CH AM IN CHEST SUBCU/FASCIA, OPEN REBECCA MARTHA Start: 03-31-2020 INSERTION OF PACEMAK ER LEAD INTO R VENTRICLE, PERC APPROACH REBECCA MARTHA Start: 03-31-2020 INSERTION OF PACEMAK ER LEAD INTO RIGHT ATRIUM, PERC APPROACH REBECCA MARTHA Acid fast bacilli culture MD Tony Turner Work Phone: Acid fast stain method MD Torres Work Phone: Aerobic microbial culture MD Tony Turner Work Phone: Anaerobic microbial culture MD Tony Turner Work Phone: Urine culture MD Tony Turner Work Phone: Plan of Treatment Date Care Activity Detail Author Start: 08-12-2022 [facility] Start: 08-10-2022 Consultation [facility] Start: 08-10-2022 End: 08-10-2022 [facility] Acid Fast Bacilli Cu lture & Smear Acid Fast Bacilli Culture & Smear [facility] Anaerobic microbial culture Anaerobic Culture [facility] Bacteria identified in Urine by Culture Urine Culture [facility] Chlamydia trachomati s [Presence] in Unspecified specimen by Organism specific culture [facility] Work Phone: Chlamydia trachomati s [Presence] in Unspecified specimen by Organism specific culture [facility] Fungal Culture Result 1 Fungal C ulture Result 1 [facility] Fungus identified in Unspecified specimen by Culture [facility] [facility] Work Phone: Mycobacterium sp identified in Unspecified specimen by Organism specific culture [facility] Work Phone: Mycology Culture Mycology Culture [facility] Patient referral [facility] Work Phone: [facility] Payers Date Payer Category Payer Self-pay 1965 Unknown [id number] 2.16.8 [id number] 1965 Unknown [id number] 2.16.84 [id number] 1965 Unknown [id number] 2.16.84 0.1.434396.3.579.2.593 1965 Unknown [id number] 2.16.84 0.1.569790.3.579.2.593 1965 Unknown [id number] 2.16.84 0.1.159302.3.579.2.593 1965 Unknown [id number] 2.16.84 0.1.083674.3.579.2.593 1965 Unknown [id number] 2.16.84 0.1.026091.3.579.2.593 1965 Unknown [id number] 2.16.84 0.1.830309.3.579.2.593 1965 Unknown [id number] 2.16.84 0.1.713200.3.579.2.593 1965 Unknown [id number] 2.16.84 0.1.271079.3.579.2.593 1965 Unknown [id number] 2.16.84 0.1.633127.3.579.2.593 1965 Unknown [id number] 2.16.84 0.1.817974.3.579.2.593 1964 Unknown [id number] 2.16.84 0.1.052507.3.579.2.593 1964 Unknown [id number] 2.16.84 0.1.893611.3.579.2.593 1965 Unknown [id number] 2.16.84 [id number] 1960 Self-pay [id number] 1960 Unknown [id number] Unknown [id number] 2.16.8 [id number] Social History Date Type Detail Facility Tobacco smoking stat [facility] Unknown if ever smoked [facility] Work Phone: Start: 1965 Sex Assigned At Female F [facility] Start: 08-10-2022 [facility] Medical Equipment Procedure Code Equipment Code Equipment Origin al Text Equipment Identifier Dates Thoracotomy Surgical adhesive/sealant, human-derived ()[id number] FDA Start: 08-10-2022 Goals Date Patient Goal Desired Activity /State Functional Status Date Assessment Result Facility 08-12-2022 Functional status Patient at Baseline [facility] Work Phone: Mental Status Date Assessment Result Facility 08-12-2022 Cognitive function Cognitive Sta tus Patient at Baseline [facility] Work Phone: Clinical Notes 08-10-2022 to 10-24-2023 Note Date & Type Note Facility 10-24-2023 Note [facility] Consult Note Reason for visit: s/p DC PPM 10/24/23: She has been feeling well without complaints of CP, worsened CURRAN, le edema, palpitations She continues to have some CURRAN when doing chores around her house Discussed likely COPD vs pulm htn given negative stress and otherwise unremarkable TTE aside the mildly elevated RVSP Device check 10/24/23 RA pacing 70%, RV pacing 1% Stress test 09/2023 was negative for ischemia TTE 09/06/23 normal LVEF 60%, mildly elevated RVSP, mild TR 04/26/22 HPI: Emigdio Apodaca is a 58 y.o. year old with past medical history of COPD, heart blocks s/p biotronik dual-chamber PPM [address] Thomas, bipolar, depression. She had pacemaker placed inpatient as she was admitted for symptomatic bradycardia in 2019 and has never been seen for follow-up. Device check shows normal device function and stable lead measurements, Rv pacing 1% She has been experiencing shortness of breath with exertion over the last several months which is new for her. She does get chest discomfort associated with her shortness of breath. 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 in 2019 ECG 01/02/23 inverted twaves in leads 2/3/avf PMH: Past Medical History: Diagnosis Date Abnormal ECG COPD (chronic obstructive pulmonary disease) (CMS/HCC) Hyperlipidemia PSH: Past Surgical History: Procedure Laterality Date CHOLECYSTECTOMY INSERT / REPLACE / REMOVE PACEMAKER SH: Social Determinants of Health Tobacco Use: Low Risk (04/26/2023) Patient History Smoking Tobacco Use: Never Smokeless Tobacco Use: Never Passive Exposure: Not on file Alcohol Use: Not on file Financial Resource Strain: Not on file Food Insecurity: Not on file Transportation Needs: Not on file Physical Activity: Not on file Stress: Not on file Social Connections: Not on file Intimate Partner Violence: Not on file Depression: Not on file Housing Stability: Not on file Utilities: Not on file Allergies: Allergies Allergen Reactions Compazine [Prochlorperazine] Sulfa (Sulfonamide Antibiotics) Weight: 44.5kg Visit Vitals BP 98/64 (BP Location: Right arm, Patient Position: Sitting) Pulse 84 Ht 1.524 m (5') Wt 44.5 kg (98 lb) SpO2 95% BMI 19.14 kg/m??? Smoking Status Never BSA 1.37 m??? Meds: Current Outpatient Medications on File Prior to Visit Medication Sig Dispense Refill albuterol 90 mcg/actuation inhaler every 4 (four) hours. buPROPion XL (Wellbutrin XL) 300 mg 24 hr tablet 1 (one) time each day at the same time. cholecalciferol, vitamin D3, 50 mcg (2,000 unit) capsule 1 capsule 1 (one) time each day at the same time. lamoTRIgine (LaMICtal) 25 mg tablet Take 2 tablets by mouth in the morning. lansoprazole (Prevacid) [address] capsule 1 (one) time each day at the same time. levothyroxine (Synthroid, Levoxyl) 125 mcg tablet Take 125 mcg by mouth in the morning. loratadine (Claritin) 10 mg tablet Take 10 mg by mouth in the morning. simvastatin (Zocor) 20 mg tablet Take 20 mg by mouth at bedtime. No current facility-administered medications on file prior to visit. ROS: Cardio Basic Cardiovascular Symptoms: no lightheadedness, no leg edema, no syncope, no orthopnea, no PND, no claudication, Constitutional Constitutional: no fever, no night sweats, no significant weight gain, no significant weight loss, no exercise intolerance Eyes Eyes: no dry eyes, no irritation, no vision change ENMT Ears: no difficulty hearing, no ear pain Nose: no frequent nosebleeds, Mouth/Throat: no sore throat, no bleeding gums, no snoring, no dry mouth, no mouth ulcers, no oral abnormalities, no teeth problems Respiratory Respiratory: no cough, no wheezing, no coughing up blood, no sleep apnea Musculoskeletal Musculoskeletal: no muscle aches, no muscle weakness, joint pain+, no back pain, no swelling in the extremities Integumentary Skin no rash, no ulcer, no varicosities, no discoloration, no pruritus Neurologic Neurologic: no loss of consciousness, no weakness, no numbness, no seizures, no dizziness, no headaches Psychiatric Psych: no depression, feeling safe in relationship, no alcohol abuse, Hematologic/Lymphatic Hematologic/Lymphatic no swollen glands, no bruising Physical Exam: Constitutional General Appearance: well-nourished, well-developed, appears stated age Level of Distress: comfortable Psychiatric Mental Status: alert, normal affect Orientation: oriented to time, place, and person Insight: good judgement Eyes Lids and Conjunctivae: non-injected, no xanthelasma ENMT Ears: no lesions on external ear Nose: no lesions on external nose Oropharynx: no cyanosis, no pallor Neck Neck: supple, trachea midline Carotid Arteries: bilateral normal upstroke, n (more content not included)... [facility] 10-24-2023 Note Patient here for fol low up echo, stress test, and device check. Review of Systems Constitutional: Positive for malaise/fatigue. Cardiovascular: Positive for chest pain and dyspnea on exertion. Respiratory: Positive for cough. Musculoskeletal: Positive for arthritis, back pain and myalgias. All other systems reviewed and are negative. [facility] 05-03-2023 Note -CT statin [facility] 05-03-2023 Note - Biotronik dual-bryce mber PPM implanted [address] Thomas - normal device function and stable lead thresholds, device checks as scheduled [facility] 05-03-2023 Note [facility] -on inhalers -stable -follow up with pcp [facility] 04-26-2023 Note Patient here for [facility] low up. She has never been seen in the office since Dr. Thomas placed her device in 2019. C/o SOB with exertion and fatigue. Denies chest pain, palpitations, and lightheadedness. No labs or testing since her admission in December 2022. Review of Systems Constitutional: Positive for malaise/fatigue. Cardiovascular: Positive for dyspnea on exertion. Respiratory: Positive for cough. Musculoskeletal: Positive for arthritis, back pain and myalgias. All other systems reviewed and are negative. [facility] 04-26-2023 Note [facility] Consult Note Reason for visit: s/p DC PPM per dr. Thomas 2020 inpatient and never seen in office HPI: Emigdio Apodaca is a 57 y.o. year old with past medical history of COPD, heart blocks s/p biotronik dual-chamber PPM [address] Thomas, bipolar, depression. She had pacemaker placed inpatient as she was admitted for symptomatic bradycardia in 2019 and has never been seen for follow-up. Device check today shows normal device function and stable lead measurements, Rv pacing 1% She has been experiencing shortness of breath with exertion over the last several months which is new for her. She does get chest discomfort associated with her shortness of breath. shortness of breath is not relieved with inhalers, does not think this is related to her COPD She does not have a high RV pacing. 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 in 2019 ECG 01/02/23 inverted twaves in leads 2/3/avf PMH: Past Medical History: Diagnosis Date Abnormal ECG COPD (chronic obstructive pulmonary disease) (CMS/HCC) Hyperlipidemia PSH: Past Surgical History: Procedure Laterality Date CHOLECYSTECTOMY INSERT / REPLACE / REMOVE PACEMAKER SH: Social Determinants of Health Tobacco Use: Low Risk (04/26/2023) Patient History Smoking Tobacco Use: Never Smokeless Tobacco Use: Never Passive Exposure: Not on file Alcohol Use: Not on file Financial Resource Strain: Not on file Food Insecurity: Not on file Transportation Needs: Not on file Physical Activity: Not on file Stress: Not on file Social Connections: Not on file Intimate Partner Violence: Not on file Depression: Not on file Housing Stability: Not on file Allergies: Allergies Allergen Reactions Compazine [Prochlorperazine] Sulfa (Sulfonamide Antibiotics) Weight: 44.5kg Visit Vitals BP 91/58 (BP Location: Left arm, Patient Position: Sitting) Pulse 73 Ht 1.524 m (5') Wt 44.5 kg (98 lb) SpO2 91% BMI 19.14 kg/m??? Smoking Status Never BSA 1.37 m??? Meds: Current Outpatient Medications on File Prior to Visit Medication Sig Dispense Refill albuterol 90 mcg/actuation inhaler every 4 (four) hours. buPROPion XL (Wellbutrin XL) 300 mg 24 hr tablet 1 (one) time each day at the same time. lamoTRIgine (LaMICtal) 25 mg tablet Take 2 tablets by mouth in the morning. levothyroxine (Synthroid, Levoxyl) 125 mcg tablet Take 125 mcg by mouth in the morning. simvastatin (Zocor) 20 mg tablet Take 20 mg by mouth at bedtime. cholecalciferol, vitamin D3, 50 mcg (2,000 unit) capsule 1 capsule 1 (one) time each day at the same time. lansoprazole (Prevacid) [address] capsule 1 (one) time each day at the same time. loratadine (Claritin) 10 mg tablet Take 10 mg by mouth in the morning. No current facility-administered medications on file prior to visit. ROS: Cardio Basic Cardiovascular Symptoms: no lightheadedness, no leg edema, no syncope, no orthopnea, no PND, no claudication, Constitutional Constitutional: no fever, no night sweats, no significant weight gain, no significant weight loss, no exercise intolerance Eyes Eyes: no dry eyes, no irritation, no vision change ENMT Ears: no difficulty hearing, no ear pain Nose: no frequent nosebleeds, Mouth/Throat: no sore throat, no bleeding gums, no snoring, no dry mouth, no mouth ulcers, no oral abnormalities, no teeth problems Respiratory Respiratory: no cough, no wheezing, no coughing up blood, no sleep apnea Musculoskeletal Musculoskeletal: no muscle aches, no muscle weakness, joint pain+, no back pain, no swelling in the extremities Integumentary Skin no rash, no ulcer, no varicosities, no discoloration, no pruritus Neurologic Neurologic: no loss of consciousness, no weakness, no numbness, no seizures, no dizziness, no headaches Psychiatric Psych: no depression, feeling safe in relationship, no alcohol abuse, Hematologic/Lymphatic Hematologic/Lymphatic no swollen glands, no bruising Physical Exam: Constitutional General Appearance: well-nourished, well-developed, appears stated age Level of Distress: comfortable Psychiatric Mental Status: alert, normal affect Orientation: oriented to time, place, and person Insight: good judgement Eyes Lids and Conjunctivae: non-injected, no xanthelasma ENMT Ears: no lesions on external ear Nose: no lesions on external nose Oropharynx: no cyanosis, no pallor Neck Neck: supple, trachea midline Carotid Arteries: bilateral normal upstroke, no bruits Jugular Veins: normal jugular venous pressure Thyroid: not enlarged Lungs Respiratory Effort: unlabored Chest Exam: normal curvature, no thoracic deformity Auscultation: clear, no wheezing, no rales, no rhonchi Cardiovascular Rate And Rhythm: regular Heart Sounds: normal S1, normal s2, no gallop Systolic Murmur: not heard Diastolic Murmur: not heard Extre (more content not included)... [facility] 08-12-2022 History and physi leandro note Note Date/Time August 04, 2022 3:52pm [facility] [address] [place] [address] Cardiothoracic Surgery H&P Signed Patient: Emigdio Apodaca MR#: [id number] : 1965 Acct:[id number] Age/Sex: 56 / F Adm Date: 2 Loc: [place] Room: Type: PRE [facility] Attending Dr: Rodolfo Harley MD Copies to: MD Tony Carrera MD~ Date of Service: 08/08/2022 HPI History of Present Illness History of present illness: Patient is a 56-year-old female with history of recurrent pneumonia and emphysema that presented to Dr. Gardner in early June with complaints of increased dyspnea on exertion, dry cough and fatigue. ?CT was completed on 06/20/22 that showed scattered groundglass opacities, mild emphysematous changes,mild bronchiolectasis, numerous calcified right hilar lymph nodes. ?Patient was then sent for a bronchoscopy that was completed by Dr. Gardner on 07/04/2022. ?Pathology shows chronic inflammation and interstitial fibrosis and fragments ofunremarkable bronchus. ?Patient was then seen back in Jj's office on 07/11/22. ?Dr. Gardner spoke with the pathologist Dr. Haider. ?He states the bronchus results were not specific enough for interstitial lung disease. ?Gram stain was negative biopsy showed nonspecific inflammatory fibrosis that was inconclusive to establish diagnosis. ?He thought this to be some sort of interstitial pneumonia. ?To note patient has a cockatiel and a parrot at home. Chlamydia IgG IgM and IgA were all negative. Anti-LA-3 antibodies were 5.0. ?P ANCA was 1:80. ?Both these levels are high. ?Patient's thyroid levels were all within normal limits except for the T4 which was 4.70. ?Patient had an echocardiogram completed on 07/05/2022 that showed an ejection fraction of 65 to 70%. ?PFTs that were completed pre and post bronchoscopy showed an FEV1 of 1.39 and 1.55. ?Patient was then sent to us for possible open lung biopsy. Patient's past medical history includes dysphagia, bronchiectasis, recurrent pneumonia, emphysema, interstitial pulmonary disease, depression, scoliosis, osteoporosis, IBS, humerus fracture, hip fracture, right wrist fracture, hypothyroidism and C. difficile. 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 ?Family and social history includes mother had heart disease and CVA. ?Dad had Alzheimer's and CVA. ?Patient states her grandmother had breast cancer and grandfather had colon cancer. ?Patient states she was never a smoker and does not drink alcohol.?She does states she lived with a smoker for 30 years. ?Patient's allergies include sulfa, Compazine, erythromycin and possibly penicillin although patient says she took it at her older years and did not have any reaction. ?Upon assessment today patient complains of right flank pain with deep inspiration. ?She states she is short of breath especially with exertion. ?Patient states shehas a frequent cough and sometimes expectorates yellow sputum. ?Patient states she has increased fatigue and sleeps a lot. ?Does not admit to any weight loss though she says that she has a very poor appetite eating only 1 time a day. ?Patient states she is quite forgetful and reminds us that her dad had Alzheimer's dementia. ?Patient states she had COVID 19 last October and refuses vaccination or boosters. Review of Systems Review of Systems All other systems reviewed & are negative unless noted below or in HPI PMFSH Vaccinated for COVID-19?: Unknown Exam Const General: cooperative and no acute distress Nutritional Appearance: underweight Orientation: alert, oriented x3 and other (forgetful) HEENT Head: normal to inspection Ears: hearing grossly normal bilaterally Nose: external nose normal Face and sinus: normal facial exam Mouth: oral mucosae normal Teeth and gingiva: dentition normal Eyes General: appearance normal, both eyes and all related structures Pupils: PERRL Neck Neck: full ROM Thyroid: thyroid normal Carotids: normal carotid upstroke Lymphatic: no lymphadenopathy noted Chest Chest palpation & inspection: normal inspection of the chest Resp Effort & Inspection: normal respiratory effort and cough Auscultation: clear to auscultation bilaterally Cardio Jugular venous pressure: no JVD Rate: regular rate Rhythm: regular rhythm Pulses: posterior tibial pulses present and dorsalis pedis present GI Inspection: normal to inspection General: bladder normal to inspection Musc Cervical Spine: cervical ROM normal Thoracic/Lumbar Spine: thoraco-lumbar ROM normal Skin General: no rashes or lesions noted Wounds: no wounds Nails: normal Neuro General: patient alert and patient oriented x3 Cranial Nerves: able to smile, able to blink, speech unremarkable and able to rotate head bilaterally Cognition: normal cognition Speech: speech normal Gait: normal gait Motor: muscle tone normal throughout Extrem General: full ROM, no pedal edema and no calf tenderness Psych Appearance: grossly normal Mental Status: mental status grossly normal Mood: congruent mood Affect: normal affect Speech and Movement: speech and movement normal Attitude: cooperative Thought Process: normal Thought Content: normal Insight: insight good Judgment: judgment good A&P - Cardiothoracic Surgery (1) Interstitial lung disease: Code(s): J84.9 - Interstitial pulmonary disease, unspecified Status: Acute (2) Bipolar 1 disorder: Code(s): F31.9 - Bipolar disorder, unspecified Status: Acute (3) Hypercholesteremia: Code(s): E78.00 - Pure hypercholesterolemia, unspecified Status: Acute (4) Hypothyroidism: Code(s): E03.9 - Hypothyroidism, unspecified Status: Acute Plan Patient is a 56-year-old woman with the above-stated history of fatigue and exertional dyspnea. She does have occasional productive yellow sputum. She hashad recurrent pneumonias with treated with antibiotics and steroids recently. Patient has had extensive work-up by Dr. Gardner. He is uncertain for the cause for her interstitial lung disease. I discussed the case with him on 08/03/22. Plan will be for right video-assisted thoracoscopy with open lung biopsy. We will send the lung tissue also for chlamydia psittaci because of her history of having parents to rule out psittacosis, in addition to suggs culture with aerobic anaerobic fungal and AFB stains smears. We will send it for cytology. We will also send it for cell count to rule out eosinophilia. Also in the differential is Ada's granulomatosis, but most likely this is BOOP.. The risks and benefits of surgery were discussed with the patient. She understands and wishes to proceed. It Should be noted the patient had normal TSHlevel on 07/04/22 [facility]. We will give 100 mg of IV Solu-Cortef on-call to the OR. We will utilize vancomycin and Levaquin given the questionable history of penicillin allergy with hives as a baby, although she states she recently had penicillin without issues. Documented By: Rodolfo Harley MD 08/04/22 1223 Signed By: <Electronically signed by MD Rodolfo Harley> 08/12/22 1345 [facility] Work Phone: 1(102) 612-212211-11-2022 Hospital Discharge instructionsAmbulatory Orders* Initiate Home Health Time Frame: 08/12/22, Location: Determined By Patient Additional Instructions no lifting 5-10 lbs. Continue Peridex mouthwash. May remove dressing tomorrow. Daily showers with Betasept wash. No driving.[facility] Work Phone: 1(423) 678-404911-11-2022 Progress note Author Nathaniel Me[facility] August 12, 2022 11:59am Note Date/Time August 12, 2022 8:13am [facility] [address] [place] [address] Pulmonology Progress Note Signed Patient: Emigdio Apodaca MR#: [id number] : 1965 Acct:[id number] Age/Sex: 56 / F Adm Date: 2 Loc: Room: [address] [place] [address] Type: REG SDC Attending Dr: Rodolfo Harley MD Copies to: ~ Date of Service: 08/12/2022 Subjective Subjective Narrative: Patient is up and working with physical therapy with some chest pain noted. Shedenies respiratory complaints. Exam Physical Exam Vital Signs: Temp Pulse Resp BP Pulse Ox O2 Del Method O2 Flow Rate 97.8 F 69 16 126/72 97 Nasal Cannula 3 08/12/22 08:00 08/12/22 08:00 08/12/22 08:00 08/12/22 08:00 08/12/22 08:00 08/12/22 08:00 08/12/22 08:00 Const Nutritional Appearance: thin Orientation: not alert and not awake HEENT Head: normal to inspection, normocephalic and atraumatic Ears: external ears normal Nose: external nose normal Face and sinus: normal facial exam Eyes Eyelids: eyelids normal Neck Neck: normal visual inspection Resp Effort & Inspection: normal respiratory effort Auscultation: clear to auscultation bilaterally, diminished lung sounds, no rales, no rhonchi and no wheezes Cardio Rate: regular rate Rhythm: regular rhythm Heart Sounds: S1 normal, S2 normal, no gallops, no murmurs and no rubs GI Inspection: normal to inspection Palpation: soft and nontender Auscultation: hypoactive bowel sounds Rectal Exam: deferred General: deferred Skin General: no rashes or lesions noted Extrem General: no pedal edema Objective Intake and Output I&O - Last 24 Hours: Intake & Output 08/11/22 08/12/22 08/12/22 23:59 07:59 15:59 Intake Total 300 / 1700 1100 / 1100 Output Total 172 / 802 1012 / 1012 Balance 128 / 898 88 / 88 Labs CBC & Chem 7: 08/12/22 05:32 08/12/22 05:32 Microbiology Micro: Microbiology 08/10/22 12:06 Aerobic Culture - Preliminary Lung,Right Lower Lobe - Other No Growth 1 Day Anaerobic Culture - Preliminary No Anaerobes Isolated 1 Day Gram Stain - Final Imaging and Cardiology Chest x-ray: Status: image reviewed by me Additional comments: Date of Service: 08/12/22 XR/XR chest 1V portable: Post op Thoracic surgery PORTABLE AP ERECT CHEST 0610 hours CLINICAL HISTORY: Follow-up after right VATS COMPARISON: 08/11/2022 There is a left-sided pacemaker. A right-sided chest tube is again visualized. There is suspected scarring at the right midlung. There is minor hazy density at the right base. There is also pleural parenchymal change at the left base obscuring the hemidiaphragm. This may be minimally worse. No pneumothorax is noted. The heart is not enlarged. XR/XR chest 1V portable IMPRESSION: MILD PARENCHYMAL AND POSSIBLE LEFT-SIDED PLEURAL CHANGE, DESCRIBED. NO PNEUMOTHORAX. Assessment/Plan Assessment/Plan (1) Interstitial lung disease: (2) Bronchiectasis: Plan Hospital day #2 and postoperative day #2 for patient status post right upper lobe and right lower lobe open lung biopsy for alveolitis and bronchiectasis. Patient is stable and case was discussed with Dr. Harley yesterday with recommendations for weaning off stress dose steroids. The patient's hemodynamics remained stable and the patient can have her stress dose steroids stopped today in my opinion. Aggressive pulmonary clearance measures were encouraged. I have no new recommendations. We will follow the patient peripherally and will be available as needed. Documented By: Nathaniel Meza MD 2 0811 Signed By: <Electronically signed by MD Nathaniel Meza> 08/12/22 3002 [facility] Work Phone: 1(169) 951-594611-10-2022 Progress note Author Nathaniel Meza [facility] August 11, 2022 10:07am Note Date/Time August 11, 2022 7:43am [facility] [address] [place] [address] Pulmonology Progress Note Signed Patient: Emigdio Apodaca MR#: [id number] : 1965 Acct:[id number] Age/Sex: 56 / F Adm Date: 2 Loc: Room: [address] [place] [address] Type: [facility] Attending Dr: Rodolfo Harley MD Copies to: ~ Date of Service: 08/11/2022 Subjective Subjective Narrative: Patient awakens and does complain of chest pain. She has no new respiratory complaints and remains on supplemental oxygen. Exam Physical Exam Vital Signs: Temp Pulse Resp BP Pulse Ox O2 Del Method O2 Flow Rate 98.0 F 75 23 108/53 L 97 Nasal Cannula 1.5 08/11/22 04:00 08/11/22 07:00 08/11/22 07:00 08/11/22 07:00 08/11/22 07:00 08/11/22 07:00 08/11/22 07:00 Const Nutritional Appearance: thin Orientation: not alert and not awake HEENT Head: normal to inspection, normocephalic and atraumatic Ears: external ears normal Nose: external nose normal Face and sinus: normal facial exam Eyes Eyelids: eyelids normal Neck Neck: normal visual inspection Resp Effort & Inspection: normal respiratory effort Auscultation: clear to auscultation bilaterally, diminished lung sounds, no rales, no rhonchi and no wheezes Other: Pleur-evac reveals no clear evidence of air leak with cough though weak cough was noted. Cardio Rate: regular rate Rhythm: regular rhythm Heart Sounds: S1 normal, S2 normal, no gallops, no murmurs and no rubs GI Inspection: normal to inspection Palpation: soft and nontender Auscultation: hypoactive bowel sounds Rectal Exam: deferred General: deferred Skin General: no rashes or lesions noted Extrem General: no pedal edema Objective Intake and Output I&O - Last 24 Hours: Intake & Output 08/10/22 08/10/22 08/11/22 15:59 23:59 07:59 Intake Total 1600 / 2950 1350 / 2950 1100 / 1100 Output Total 156 / 815 596 / 815 362 / 362 Balance 1444 / 2135 754 / 2135 738 / 738 Weight 44.452 kg 44.9 kg Labs CBC & Chem 7: 08/11/22 05:13 08/11/22 05:13 Microbiology Micro: Microbiology 08/10/22 12:06 Fungal Smear - Final Lung,Right Lower Lobe - Tissue 08/10/22 12:06 Gram Stain - Final Lung,Right Lower Lobe - Other 08/10/22 11:30 Acid Fast Bacilli Culture - Final Lung,Right Lower Lobe - Right Lower Lobe N/A Acid Fast Bacilli Culture - Final N/A Mycobacterium Identification - Final N/A Mycobacterium Identification - Final N/A Mycobacterium Identification - Final N/A Mycobacterium Identification - Final N/A Mycobacterium Identification - Final N/A Mycobacterium Identification - Final N/A Mycobacterium Identification - Final N/A Fungal Culture Result 2 - Final N/A Fungal Culture Result 3 - Final N/A Fungal Culture Result 4 - Final N/A Mycology Susceptibility - Final N/A Imaging and Cardiology Chest x-ray: Status: image reviewed by me Additional comments: Date of Service: 08/11/22 XR/XR chest 1V portable: Post op Thoracic surgery ? Plain film chestsingle view HISTORY:Postop VATS. COMPARISON:08/10/22 FINDINGS:LEFT cardiac device unchanged.? RIGHT chest tube unchanged.? Cardiac, mediastinal and hilar silhouettes are stable.? Continued bilateral basilar parenchymal densities with minimal LEFT basal pleural reaction.? Improving RIGHTbasilar consolidation.? No pneumothorax. ? Bony structures are intact. XR/XR chest 1V portable IMPRESSION: Continued bilateral basilar peripheral changes and minimal LEFT basilar pleural reaction.? Improving RIGHT basilar parenchymal density. ? Assessment/Plan Assessment/Plan (1) Interstitial lung disease: (2) Bronchiectasis: Plan Hospital day #1 and postoperative day #1 for patient status post right upper lobe and right lower lobe open lung biopsy for alveolitis and bronchiectasis. Patient is stable postoperatively with continued pain likely leading to some splinting and hypoventilation and thus continued oxygen requirements. Cough anddeep breathing including use of incentive spirometry was encouraged with the patient. We will follow with you and will not make any changes otherwise. Documented By: Nathaniel Meza MD 2 0742 Signed By: <Electronically signed by MD Nathaniel Meza> 08/11/[address] [place] [address] Ctr Work Phone: 1(120) 238-969411-09-2022 Consult note Author Nathaniel Meza [facility] August 10, 2022 5:46pm Note Date/Time August 10, 2022 5 :41pm [facility] [address] [place] [address] Pulmonology Consult Note Signed Patient: Emigdio Apodaca MR#: [id number] : 1965 Acct:[id number] Age/Sex: 56 / F Adm Date: 2 Loc: Room: 6I2560-0 Type: [facility] Attending Dr: Rodolfo Harley MD Copies to: MD Nathaniel Carrera MD Douglas M Hoy, MD~ HPI Date/Time of Consultation: Date of Service: 08/10/2022 Time of Service: 17:35 Consulting Provider: Nathaniel Meza Requesting Provider: Rodolfo Harley History of Present Illness History of present illness: Ms. Apodaca is a 56 year old female seen at the request of the cardiothoracic surgery service for history of interstitial lung disease. Patient has been followed by Dr. Nadege Gardner at [facility] with complaints of dyspnea on exertion as well as nonproductive cough. CT scan reportedly revealed scattered groundglass opacity with mild emphysema as well as bronchiectasis with evidence of granulomatous disease on the basis of calcified right hilar lymph nodes. Bronchoscopy was nondiagnostic showing chronic inflammation and interstitial fibrosis with fragments of unremarkable bronchus. Rheumatologic work-up was performed and is equivocal and echocardiogram revealed normal ejection fraction. Patient was referred to Dr. Harley for open lung biopsy. Patient underwent a right video-assisted thoracoscopy with right upper lobe wedge biopsy and right lower lobe wedge biopsy. Patient was returned to the intensive care unit postoperatively with chest x-ray revealing a right-sided chest tube with reexpansion of the lung with patchy infiltrates noted primarily in the right lower lung field. Review of Systems Review of Systems All other systems reviewed & are negative unless noted below or in HPI PMFSH Vaccinated for COVID-19?: No Medical History (Updated 08/10/22 @ 17:40 by Nathaniel Meza MD) Breast lump 10 small tumors, benign, 30 years ago, unsure of which side Bronchiectasis C. difficile diarrhea Carpal tunnel syndrome COVID 10/2020 Depression Dysphagia Emphysema lung Humerus fracture Hypercholesteremia Hypothyroid IBS (irritable bowel syndrome) Interstitial pulmonary disease Pacemaker Recurrent pneumonia Surgical History (Updated 08/10/22 @ 08:00 by Sunni Lr RN) H/O adenoidectomy History of cholecystectomy History of hysterectomy ovaries still in place History of tonsillectomy Social History Smoking Status: Never smoker Substance Use Type: None Meds Medications and Allergies Allergies erythromycin base Allergy (Verified 08/05/22 08:36) Unknown Reaction prochlorperazine [From Compazine] Allergy (Verified 08/05/22 08:38) Unknown Reaction Sulfa (Sulfonamide Antibiotics) Allergy (Verified 08/05/22 08:37) Unknown Reaction codeine Adverse Reaction (Verified 08/10/22 07:38) Nausea Home Medications bupropion HCl 300 mg 24 hr tablet, extended release 300 mg PO DAILY 08/10/22 [History Confirmed 08/10/22] cholecalciferol (vitamin D3) 50 mcg (2,000 unit) capsule 50 mcg PO DAILY 08/10/22 [History Confirmed 08/10/22] citalopram 20 mg tablet 20 mg PO DAILY 08/10/22 [History Confirmed 08/10/22] lamotrigine 25 mg tablet 50 mg PO DAILY 08/10/22 [History Confirmed 08/10/22] lansoprazole 30 mg capsule,delayed release 30 mg PO DAILY 08/10/22 [History Confirmed 08/10/22] levothyroxine 125 mcg tablet 112 mcg PO DAILY 08/10/22 [History Confirmed 08/10/22] loratadine 10 mg tablet 10 mg PO DAILY 08/10/22 [History Confirmed 08/10/22] mometasone-formoterol HFA 200 mcg-5 mcg/actuation aerosol inhaler (Dulera) 2 puff inhalation BID 08/10/22 [History Confirmed 08/10/22] naproxen 500 mg tablet 500 mg PO DAILY PRN Pain 08/10/22 [History Confirmed 08/10/22] simvastatin 20 mg tablet 20 mg PO DAILY 08/10/22 [History Confirmed 08/10/22] sucralfate 1 gram tablet 1 g PO DAILY 08/10/22 [History Confirmed 08/10/22] tiotropium bromide 2.5 mcg/actuation mist for inhalation (Spiriva Respimat) 2 puff inhalation DAILY 08/10/22 [History Confirmed 08/10/22] Exam Physical Exam Vital Signs: Temp Pulse Resp BP Pulse Ox O2 Del Method O2 Flow Rate 97.4 F L 79 16 91/56 L 97 Nasal Cannula 6 08/10/22 14:30 08/10/22 16:00 08/10/22 16:00 08/10/22 16:00 08/10/22 16:42 08/10/22 16:42 08/10/22 16:42 Const Nutritional Appearance: thin Orientation: not alert and not awake HEENT Head: normal to inspection, normocephalic and atraumatic Ears: external ears normal Nose: external nose normal Face and sinus: normal facial exam Eyes Eyelids: eyelids normal Neck Neck: normal visual inspection Resp Effort & Inspection: normal respiratory effort Auscultation: clear to auscultation bilaterally, diminished lung sounds, no rales, no rhonchi and no wheezes Cardio Rate: regular rate Rhythm: regular rhythm Heart Sounds: S1 normal, S2 normal, no gallops, no murmurs and no rubs GI Inspection: normal to inspection Palpation: soft and nontender Auscultation: hypoactive bowel sounds Rectal Exam: deferred General: deferred Skin General: no rashes or lesions noted Extrem General: no pedal edema Results Intake and Output I&O - Last 24 Hours: Intake & Output 08/10/22 08/10/22 08/10/22 07:59 15:59 23:59 Intake Total 1600 / 1600 0 / 1600 Output Total 156 / 323 167 / 323 Balance 1444 / 1277 -167 / 1277 Weight 44.452 kg 44.452 kg Labs CBC & Chem 7: 08/10/22 14:23 08/10/22 14:23 Microbiology Micro: 08/10/22 12:06 Fungal Smear - Final Lung,Right Lower Lobe - Tissue 08/10/22 12:06 Aerobic Culture - Pending Lung,Right Lower Lobe - Other Anaerobic Culture - Pending Gram Stain - Final 08/10/22 11:30 AFB Smear Concentration - Pending Lung,Right Lower Lobe - Right Lower Lobe Acid Fast Bacilli Smear - Pending Acid Fast Bacilli Culture & Smear - Pending Acid Fast Bacilli Culture - Final N/A Acid Fast Bacilli Culture - Final N/A Mycobacterium Identification - Final N/A Mycobacterium Identification - Final N/A Mycobacterium Identification - Final N/A Mycobacterium Identification - Final N/A Mycobacterium Identification - Final N/A Mycobacterium Identification - Final N/A Mycobacterium Identification - Final N/A Mycology Culture - Pending Fungal Culture Result 1 - Pending Fungal Culture Result 2 - Final N/A Fungal Culture Result 3 - Final N/A Fungal Culture Result 4 - Final N/A Mycology Susceptibility - Final N/A Imaging and Cardiology Chest x-ray: Status: image reviewed by me Additional comments: Date of Service: 08/10/22 XR/XR chest 1V portable: VATS ? SINGLE VIEW CHEST CLINICAL HISTORY:? Follow-up fluoroscopy/VATS procedure today. COMPARISON:? Chest 08/05/2022 FINDINGS: Right-sided chest tube in place.? Pacemaker device.? Heart is normal in size.? Ill-defined airspace disease is seen involving the right lung likely postprocedural in nature given the history of lung biopsy.? Left lower lobe atelectasis.?No pneumothorax, pleural effusion or free air. XR/XR chest 1V portable IMPRESSION: ? ILL-DEFINED AIRSPACE DISEASE INVOLVING THE RIGHT LUNG LIKELY POSTPROCEDURAL IN NATURE GIVEN THE HISTORY OF LUNG BIOPSY. ? LEFT BASILAR ATELECTASIS. ? Assessment/Plan (1) Interstitial lung disease: (2) Bronchiectasis: Plan Hospital day #0 and postoperative day #0 for patient status post right upper lobe and right lower lobe open lung biopsy for alveolitis and bronchiectasis. Patient is utilizing supplemental oxygen and was sleepy at the time of my evaluation having recently received pain medications for postoperative pain. Patient was placed on stress dose steroids per cardiothoracic surgery as well aslevofloxacin and vancomycin. We will order as needed DuoNeb and we will follow with you and provide assistance as able. Documented By: Nathaniel Meza MD 2 1735 Signed By: <Electronically signed by MD Nathaniel Meza> 08/10/[address] [facility] Work Phone: Evaluation noteNo assessment information available [facility] Work Phone: Evaluation note* Diagnosis Onset Date Resolution Status Bipolar 1 disorder acute Bronchiectasis acute Hypercholesteremia acute Hypothyroidism acute Interstitial lung disease ac [facility] Work Phone: Evaluation note* Diagnosis Onset Date Resolution Status Bipolar 1 disorder acute Hypercholesteremia acute Hypothyroidism acute Interstitial lung disease ac [place] Bipolar 1 disorder acute Bronchiectasis acute Hypercholesteremia acute Hypothyroidism acute Interstitial lung disease [facility] Work Phone: Summary Purpose Family History No Family History Records FoundNo Family History Records FoundNo Family History Records FoundNo Family History Records Found Advance Directives No Advanced Directives Records Found Advance Directive Response Recorded Date/ Time Advance Directives No August 05, 2022 8:18am Hospital Course Note MR#: [id number] [facility] Pt. Name: Emigdio Apodaca Admitted: 03/30/2020 Discharged: 04/06/2020 Date of : 1965 Physician: Marjan Chaudhari MD DISCHARGE SUMMARY CONSULTANTS: Cardiology. PROCEDURE: Permanent pacemaker placement. DISCHARGE DIAGNOSES: 1. Symptomatic bradycardia. 2. Orthostatic dizziness. 3. Symptomatic hypotension. 4. Hypothyroidism. 5. Bipolar depression. 6. Hypokalemia. 7. Hypomagnesemia. 8. Gastroesophageal reflux disease. 9. Bladder incontinence. HISTORY OF PRESENT ILLNESS/BRIEF COURSE: The patient is a 54-year-old female with history of bipolar, depression, osteoporosis, presenting from an outside hospital with symptomatic bradycardia. The patient states that for the last 2 months she has been feeling dizzy and even had some falls in the recent past. She stated that her pulse was always low when checking and initially went to an outside hospital after having the symptoms of shortness of breath on exertion. She stated that before (more content not included)... Chief Complaint and Reason for Visit Chief Complaint . Chief Complaint . . Reason for Visit Bipolar 1 disorder Bronchiectasis Hypercholesteremia Hypothyroidism Interstitial lung disease Chief Complaint . . j84.9 s/p vats Reason for Visit Bipolar 1 disorder Bronchiectasis Hypercholesteremia Hypothyroidism Interstitial lung disease Chief Complaint . . . j84.9 s/p vats Reason for Visit Bipolar 1 disorder Hypercholesteremia Hypothyroidism Interstitial lung disease Bipolar 1 disorder Bronchiectasis Hypercholesteremia Hypothyroidism Interstitial lung disease Additional Source Comments INFORMATION SOURCE (unrecogn ized section and content) DATE CREATED AUTHOR 04/23/2020 [facility] DATE CREATED AUTHOR AUTHOR'S ORGANIZ ATION 01/07/2023 [facility] DATE CREATED AUTHOR AUTHOR'S ORGANIZ ATION 10/25/2023 [facility] DATE CREATED AUTHOR AUTHOR'S ORGANIZ ATION 11/01/2023 [facility] Care Teams (unrecognized sec tion and content) Team Status: Inactive Member Role Status Chucho Harley MD Attending Provider Active Tony Turner MD Primary Care Provider Active Team Status: Active Member Role Status Chucho Turner MD Primary Care Provider Active Team Status: Inactive Member Role Status Chucho Turner MD Primary Care Provider Active Rodolfo Harley MD Attending Provider Active Allyssa Washburn APRN [facility] Other Provider Active Jonah Badillo MD Other Provider Active Nathaniel Meza MD Other Provider Active Daiana Whitehead MD Other Provider Active Edgardo Espinoza DO Other Provider Active Stacey Cuevas MD Other Provider Active Beau Jones MD Other Provider Active Darryl Lambert MD Other Provider Active Giorgi Phillips DO Other Provider Active Team Status: Inactive Member Role Status Chucho Turner MD Primary Care Provider Active Rodolfo Harley MD Attending Provider Active Goals (unrecognized section and content) Goals may be documented in a n alternate section FOR RECORDS PERTAINING TO PATIENTS WHO ARE OR HAVE BEEN ENROLLED IN A CHEMICAL DEPENDENCY/SUBSTANCEABUSE PROGRAM, SOME INFORMATION MAY BE OMITTED. This clinical summary was aggregated from multiple sources. Caution should be exercised in using it in the provision of clinical care. This summary normalizes information from multiple sources, and as a consequence, information in this document may materially change the coding, format and clinical context of patient data. In addition, data may be omitted in some cases. CLINICAL DECISIONS SHOULD BE BASED ON THE PRIMARY CLINICAL RECORDS. [facility]. provides no warranty or guarantee of the accuracy or completeness of information in this document.
[2023-12-22 17:59] LABS: Basophils Percent Auto 0.4 % (0.2-2.0); Eosinophils Absolute Auto 0.2 10^3/uL (0.0-0.7); Hematocrit 46.2 % (36.0-48.0); Hemoglobin 14.5 g/dL (12.0-16.0); Immature Granulocytes Abs Auto 0.04 10^3/uL (0.00-0.03); Immature Granulocytes Pct Auto 0.6 % (0.0-0.5); Lymphocytes Absolute Auto 2.2 10^3/uL (1.2-3.8); Lymphocytes Percent Auto 31.7 % (20.5-60.0); Mean Corpuscular HGB Conc 31.4 g/dL (29.9-35.2); Mean Corpuscular Hemoglobin 28.1 pg (26.7-34.0); Mean Corpuscular Volume 89.5 fL (81.0-99.0); Mean Platelet Volume 9.4 fL (9.5-13.5); Monocytes Absolute Auto 0.4 10^3/uL (0.3-0.8); Monocytes Percent Auto 5.2 % (1.7-12.0); Neutrophils Absolute Auto 4.1 10^3/uL (1.4-6.5); Neutrophils Percent Auto 59.1 % (43.0-75.0); Platelet Count 214 10^3/uL (150-450); Red Blood Count 5.16 10^6/uL (4.20-5.40); Red Cell Distribution Width 13.7 % (11.0-15.0); White Blood Count 6.9 10^3/uL (4.0-11.0)
[2023-12-22] MEDS: METOCLOPRAMIDE HCL 10 MG/2 ML VIAL IVP (18:02)
[2023-12-22 18:15] LABS: Alanine Aminotransferase 30 U/L (14-59); Albumin Globulin Ratio 1.1; Albumin Level 3.9 g/dL (3.4-5.0); Alkaline Phosphatase 119 U/L (46-116); Anion Gap 11.1; Aspartate Amino Transferase 26 U/L (15-37); BUN Creatinine Ratio 14.7; Bilirubin Total 0.3 mg/dL (0.2-1.0); Calcium 9.1 mg/dL (8.5-10.1); Carbon Dioxide 28.2 mmol/L (21.0-32.0); Chloride 103 mmol/L (98-107); Estimated GFR (African America >60 (>=60); Estimated GFR (Non-African Ame 55 (>=60); Globulin 3.6 g/dL; Glucose 134 mg/dL (74-106); Potassium 3.3 mmol/L (3.5-5.1); Sodium 139 mmol/L (136-145); Total Protein 7.5 g/dL (6.4-8.2)
[2023-12-22 18:28] LABS: Adenovirus F 40/41 NOT DETECTED (NOT DETECTE); Astrovirus NOT DETECTED (NOT DETECTE); Campylobacter NOT DETECTED (NOT DETECTE); Cryptosporidium NOT DETECTED (NOT DETECTE); Cyclospora cayetanensis NOT DETECTED (NOT DETECTE); Entamoeba histolytica NOT DETECTED (NOT DETECTE); Enteroaggregative E.coli NOT DETECTED (NOT DETECTE); Enteropathogenic E.coli NOT DETECTED (NOT DETECTE); Enterotoxigenic E. coli NOT DETECTED (NOT DETECTE); Giardia lamblia NOT DETECTED (NOT DETECTE); Norovirus GI/GII NOT DETECTED (NOT DETECTE); Plesiomonas shigelloides NOT DETECTED (NOT DETECTE); Rotavirus A NOT DETECTED (NOT DETECTE); Salmonella NOT DETECTED (NOT DETECTE); Sapovirus NOT DETECTED (NOT DETECTE); Shiga-like toxin-producing E.C NOT DETECTED (NOT DETECTE); Shigella/Enteroinvasive E.coli NOT DETECTED (NOT DETECTE); Vibrio NOT DETECTED (NOT DETECTE); Vibrio cholerae NOT DETECTED (NOT DETECTE); Yersinia enterocolitica NOT DETECTED (NOT DETECTE)
--- NOTE | 2023-12-22 18:42 | CT_ITS ---
[address] [place], [place] [address] Patient Name: EMIGDIO ELI MRN: [facility]:[id number] date: 1965 Sex: F Assigned Patient Location: ED.MAIN Current Patient Location: Accession/Order Number: [id number] Exam Date: 12/22/2023 18:30 Report Date: 12/22/2023 19:26 At the request of: GAVINO LAO Procedure: CT abdomen pelvis w con EXAM: CT abdomen pelvis w con; [id number] REASON FOR EXAM: vomiting TECHNIQUE: Helical CT images of the abdomen and pelvis were obtained after the administration of IV contrast. Axial excretory phase CT images of the bladder were also obtained. Multiplanar reformats were generated at the scanner. Dose reduction technique used: Automated exposure control and/or adjustment of the mA and/or kV according to patient size and/or use of iterative reconstruction technique. COMPARISON: CT abdomen/pelvis 07/30/2019. FINDINGS: Visualized Chest: -Mild diffuse bibasilar groundglass opacification. -Small hiatal hernia with mild wall thickening of the visualized distal esophagus. Abdomen: Liver: Within normal limits. Gallbladder: Resected. Bile Ducts: Mild intrahepatic and moderate extra hepatic biliary ductal dilatation with the CBD measuring 12 mm in diameter (series 5 image 31), previously 9 mm on 07/30/2019. Pancreas: No mass, ductal dilatation, or inflammatory changes. Spleen: No splenomegaly or focal lesion. Adrenals: No nodules. Kidneys: -No stones or hydronephrosis. -There are a few small bilateral renal cysts which are too small to further characterize. Vascular: No aortic aneurysm. Incidentally noted retroaortic left renal vein. Lymph Nodes: No adenopathy. Abdominal Wall: Small fat-containing periumbilical hernia. Pelvis: No mass or adenopathy. Bowel/Peritoneal Cavity/Mesentery: -No bowel obstruction or significant ileus. -Moderate diffuse colonic wall thickening with mild pericolonic fat stranding. -No free air or free fluid. Musculoskeletal: No acute fracture or suspicious osseous lesion. Mild wedging of the superior endplate of L2, similar. CT/CT abdomen pelvis w con IMPRESSION: 1. Mild/moderate acute uncomplicated pancolitis. 2. Mildly worsening biliary ductal dilatation which could be within normal limits given the patient's age and postcholecystectomy versus distal biliary obstruction. Recommend correlation with serum bilirubin. 3. Small hiatal hernia with wall thickening of the distal esophagus likely representing esophagitis. Electronically authenticated by: HAI ABARCA Date: 12/22/2023 19:26
[2023-12-22] MEDS: ONDANSETRON PF 4 MG/2 ML VIAL IV (19:01)
--- NOTE | 2023-12-22 20:03 | ED_ITS ---
HPI - General Adult General Chief complaint: Abdominal Pain Stated complaint: DIZZINESS Time Seen by Provider: 12/22/23 17:23 Source: patient Mode of arrival: ambulance Limitations: no limitations History of Present Illness HPI narrative: 58-year-old female presented to the emergency department and was initially seen by Dr. Browne and signed out to me at change of shift. Please see his full history and physical exam. Related Data Home Medications ?Medication ?Instructions ?Recorded ?Confirmed bupropion HCl 300 mg 24 hr tablet, 300 mg PO DAILY 09/25/23 12/22/23 extended release cholecalciferol (vitamin D3) 50 50 mcg PO DAILY 09/25/23 12/22/23 mcg (2,000 unit) capsule citalopram 20 mg tablet 20 mg PO DAILY 09/25/23 12/22/23 lamotrigine 25 mg tablet 50 mg PO BEDTIME 09/25/23 12/22/23 lansoprazole 30 mg capsule,delayed 30 mg PO DAILY 09/25/23 12/22/23 release levothyroxine 125 mcg tablet 125 mcg PO DAILY 09/25/23 12/22/23 simvastatin 20 mg tablet 20 mg PO DAILY 09/25/23 12/22/23 triamcinolone acetonide 0.1 % 1 applic dental BID 09/25/23 12/22/23 dental paste docusate sodium 100 mg capsule 100 mg PO PRN 12/22/23 12/22/23 ([facility]) loratadine 10 mg tablet (Allergy 10 mg PO DAILY 12/22/23 12/22/23 Relief (loratadine)) Allergies Allergy/AdvReac Type Severity Reaction Status Date / Time acetaminophen [From Percocet] Allergy Mild Vomiting Verified 12/22/23 17:31 codeine Allergy Mild Vomiting Verified 12/22/23 17:31 oxycodone [From Percocet] Allergy Mild Vomiting Verified 12/22/23 17:31 promethazine Allergy Mild Agitated Verified 12/22/23 17:31 Sulfa (Sulfonamide Allergy Mild Vomiting Verified 12/22/23 17:31 Antibiotics) hydromorphone [From Dilaudid] AdvReac Mild Rash Verified 12/22/23 17:31 prochlorperazine AdvReac Mild Verified 12/22/23 17:31 [From Compazine] PFSH PFS Social History Smoking status: Never smoker Exam Constitutional Vital Signs, click to edit/add: Last Vital Signs Temp 97 F L 12/22/23 17:26 Pulse 75 12/22/23 19:07 Resp 18 12/22/23 19:07 BP 98/82 12/22/23 19:07 Pulse Ox 94 L 12/22/23 19:09 O2 Del Method Room Air 12/22/23 19:09 Course Vital Signs Vital signs: Vital Signs Temperature 97 F L 12/22/23 17:26 Pulse Rate 73 12/22/23 17:26 Respiratory Rate 18 12/22/23 17:26 Blood Pressure 137/73 12/22/23 17:26 Pulse Oximetry 100 12/22/23 17:26 Oxygen Delivery Method Room Air 12/22/23 17:26 Temperature 97 F L 12/22/23 17:26 Pulse Rate 75 12/22/23 19:07 Respiratory Rate 18 12/22/23 19:07 Blood Pressure 98/82 12/22/23 19:07 Pulse Oximetry 94 L 12/22/23 19:09 Oxygen Delivery Method Room Air 12/22/23 19:09 Medical Decision Making MDM Narrative Medical decision making narrative: WBC is normal, other blood work is nonspecific. CT scan shows pancolitis. She has had large amount of diarrhea here. Stool studies are ordered and she was given Cipro and Flagyl and is being admitted. Findings are discussed with the patient. Differential Diagnosis Differential Diagnosis: Colitis, diverticulitis, gastroenteritis, dehydration Lab Data Lab results reviewed: Yes I reviewed the patient's lab results Labs: Lab Results 12/22/23 12/22/23 Range/Units 17:32 17:40 WBC 6.9 (4.0-11.0) 10^3/uL RBC 5.16 (4.20-5.40) 10^6/uL Hgb 14.5 (12.0-16.0) g/dL Hct 46.2 (36.0-48.0) % MCV 89.5 (81.0-99.0) fL MCH 28.1 (26.7-34.0) pg MCHC 31.4 (29.9-35.2) g/dL RDW 13.7 (11.0-15.0) % Plt Count 214 (150-450) 10^3/uL MPV 9.4 L (9.5-13.5) fL Neut % (Auto) 59.1 (43.0-75.0) % Lymph % (Auto) 31.7 (20.5-60.0) % [place] % (Auto) 5.2 (1.7-12.0) % Eos % (Auto) 3.0 (0.9-7.0) % Baso % (Auto) 0.4 (0.2-2.0) % Neut # (Auto) 4.1 (1.4-6.5) 10^3/uL Lymph # (Auto) 2.2 (1.2-3.8) 10^3/uL [place] # (Auto) 0.4 (0.3-0.8) 10^3/uL Eos # (Auto) 0.2 (0.0-0.7) 10^3/uL Baso # (Auto) 0.0 (0.0-0.1) 10^3/uL Abs Immat Gran (auto) 0.04 H (0.00-0.03) 10^3/uL Imm/Tot Granulo (auto) 0.6 H (0.0-0.5) % Sodium 139 (136-145) mmol/L Potassium 3.3 L (3.5-5.1) mmol/L Chloride 103 (98-107) mmol/L Carbon Dioxide 28.2 (21.0-32.0) mmol/L Anion Gap 11.1 BUN 15.0 (7.0-18.0) mg/dL Creatinine 1.02 (0.55-1.02) mg/dL Est GFR ( Amer) >60 (>=60) Est GFR (Non-Af Amer) 55 L (>=60) BUN/Creatinine Ratio 14.7 Glucose 134 H (74-106) mg/dL Calcium 9.1 (8.5-10.1) mg/dL Total Bilirubin 0.3 (0.2-1.0) mg/dL AST 26 (15-37) U/L ALT 30 (14-59) U/L Alkaline Phosphatase 119 H (46-116) U/L Total Protein 7.5 (6.4-8.2) g/dL Albumin 3.9 (3.4-5.0) g/dL Globulin 3.6 g/dL Albumin/Globulin Ratio 1.1 POC Glucose 149 H (74-106) mg/dL Imaging Data CT scan - abdomen: Radiologist's impression: ITS Impressions Abdomen/Pelvis CT 12/22/23 18:42 IMPRESSION: 1. Mild/moderate acute uncomplicated pancolitis. 2. Mildly worsening biliary ductal dilatation which could be within normal limits given the patient's age and postcholecystectomy versus distal biliary obstruction. Recommend correlation with serum bilirubin. 3. Small hiatal hernia with wall thickening of the distal esophagus likely representing esophagitis. Electronically authenticated by: HAI ABARCA Date: 12/22/2023 19:26 Discharge Plan Discharge Chief Complaint: Abdominal Pain Clinical Impression: Pancolitis Patient Disposition: Admitted As Inpatient Time of Disposition Decision: 19:54 Condition: Good
[2023-12-22] MEDS: CIPROFLOXACIN IN 5 % DEXTROSE 400 MG/200 ML PIGGYBACK 200 MG IV (20:13)
--- OUTSIDE RECORDS SUMMARY | 2023-12-22 20:43 | XMS_ITS | CCD ---
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 [address]Dr. Shahbaz Rogel CORRECTED WBC Normal 4.0-11.0 [facility] Comment on above: Performed By: #### C BCMAN ####[facility] Ukftzqisao5733[address] [place], [place] [address]Dr. Shahbaz Rogel EOS # 0.00 103/ul Normal 0.00-0.70 [facility] Comment on above: Performed By: #### C BCBRICE ####[facility] Umdlofnwog9[address] [place], [place] [address]Dr. Shahbaz Rogel EOS% 0.0 % Critically low 0.9-7.0 [facility] Comment on above: Performed By: #### C BCBRICE ####[facility] Xwefdxhvaz65[address] [place], [place] [address]Dr. Shahbaz Rogel HCT 36.5 % Normal 36.0-48.0 [facility] Comment on above: Performed By: #### C BCBRICE ####[facility] Oyzkzplout6933[address] [place], [place] [address]Dr. Shahbaz Rogel HGB 11.8 g/dl Critically low 12.0-16.0 [facility] Comment on above: Performed By: #### C BCBRICE ####[facility] Fmpllxngwg48[address] [place], [place] [address]Dr. Shahbaz Rogel LYMPHM # 0.42 103/ul Critically low 1.20-3.80 [facility] Comment on above: Performed By: #### C BCMAN ####[facility] Sygmuzuixh977[address] [place], [place] [address]Dr. Sahhbaz Rogel LYMPHM% 12.0 % Critically low 20.5-60.0 [facility] Comment on above: Performed By: #### C CAIN ####[facility] Xpnvlzijgz3684 [place] [id number]. Shahbaz Rogel MCH 28.0 pg Normal 26.7-34.0 [facility] Comment on above: Performed By: #### C CAIN ####[facility] Ttbylhwsmq2597 [place] [id number]. Shahbaz Rogel MCHC 32.3 g/dl Normal 29.9-35.2 [facility] Comment on above: Performed By: #### C CAIN ####[facility] Ufuykctghu2092 [place] [phone]. Shahbaz Rogel MCV 86.7 fL Normal 81.0-99.0 [facility] Comment on above: Performed By: #### C CAIN ####[facility] Zkvjdpzmcg2689 [place] [address]Dr. Shahbaz Rogel METAMYELOCYTE # Normal [facility] Comment on above: Performed By: #### Cheri BARLOW ####[facility] Sfevmgwpfh8[address] [place], [place] [address]Dr. Shahbaz Rogel METAMYELOCYTE % Normal [facility] Comment on above: Performed By: #### Cheri BARLOW ####[facility] Yrmrxqbeeu638[address] [place], [place] [address]Dr. Shahbaz Rogel MONOM# 0.07 103/ul Critically low 0.30-0.80 [facility] Comment on above: Performed By: #### C CAIN ####[facility] Xvbadtfdku8454 [place] [id number]. Shahbaz Rogel MONOM% 2.0 % Normal 1.7-12.0 [facility] Comment on above: Performed By: #### C CAIN ####[facility] Awxiohsoep3969[address] [place], [place] [address]Dr. Shahbaz Rogel MPV 9.9 fL Normal 9.5-13.5 [facility] Comment on above: Performed By: #### C CAIN ####[facility] Tajysxbdqs4146[address] [place], [place] [address]Dr. Shahbaz Rogel MYELOCYTE # Normal [facility] Comment on above: Performed By: #### C CAIN ####[facility] Jpiullffmh8565 [place] [phone]. Shahbaz Rogel MYELOCYTE % Normal [facility] Comment on above: Performed By: #### C CAIN ####[facility] Yytsotljkv0731 [place] [phone]. Shahbaz Rogel NRBC Normal [facility] Comment on above: Performed By: #### C CAIN ####[facility] Ekdiambuwo7257 [place] [phone]. Shahbaz Rogel PLT 178 103/ul Normal 150-450 [facility] Comment on above: Performed By: #### C CAIN ####[facility] Vitmytcrrp0823 [place] [address]Dr. Shahbaz Rogel RBC 4.21 106/ul Normal 4.20-5.40 [facility] Comment on above: Performed By: #### C CAIN ####[facility] Bowtocltcc8324[address] [place], [place] [address]Dr. Shahbaz Rogel RDW 13.2 % Normal 11.0-15.0 [facility] Comment on above: Performed By: #### C CAIN ####[facility] Zexcobzydi8806[address] [place], [place] [address]Dr. Shahbaz Rogel SEG # 3.01 103/ul Normal 1.40-6.50 [facility] Comment on above: Performed By: #### C CAIN ####[facility] Kezmhdqftj2975[address] [place], [place] [address]Dr. Shahbaz Rogel SEG % 86.0 % Critically high 43.0-75.0 [facility] Comment on above: Performed By: #### C CAIN ####[facility] Iixikcnnwo0628 [place] [phone]. Shahbaz Rogel WBC 3.5 103/ul Critically low 4.0-11.0 [facility] Comment on above: Performed By: #### C CAIN ####[facility] Mbcpvtcuym0762[address] [place], [place] [address]Dr. Shahbaz Rogel PROF CHEM 8 (BAS METB)on Anion gap [Moles/Vol] 10.5 mmol/L Normal [facility] Comment on above: Performed By: #### B MP ####[facility] Exnkbmnsla1451[address] [place], [place] [address]Dr. Shahbaz Rogel Calcium [Mass/Vol] 8.7 mg/dL Normal 8.5-10.1 [facility] Comment on above: Performed By: #### B MP ####[facility] Zjbgviguoh3668[address] [place], [place] [address]Dr. Shahbaz Rogel Chloride [Moles/Vol] 108 mmol/L Critically high 98-107 [facility] Comment on above: Performed By: #### B MP ####[facility] Unqerxlmxu2484[address] [place], [place] [address]Dr. Shahbaz Rogel CO2 [Moles/Vol] 25.2 mmol/L Normal 21.0-32.0 [facility] Comment on above: Performed By: #### B MP ####[facility] Hoycawycdu45[address] [place], [place] [address]Dr. Shahbaz Rogel Creatinine [Mass/Vol] 0.77 mg/dL Normal 0.55-1.02 [facility] Comment on above: Performed By: #### B MP ####[facility] Rgmouozwpk286[address] [place], [place] [address]Dr. Shahbaz Rogel EGFR-AF SERBIAN >60 Normal >=60 [facility] Comment on above: Performed By: #### B MP ####[facility] Gleoyfioqo3733[address] [place], [place] [address]Dr. Shahbaz Rogel EGFR-NON AF SERBIAN >60 Normal >=60 [facility] Comment on above: Performed By: #### B MP ####[facility] Hclnlzuvig8526[address] [place], [place] [address]Dr. Shahbaz Rogel Glucose [Mass/Vol] 169 mg/dL Critically high 74-106 [facility] Comment on above: Performed By: #### B MP ####[facility] Aifqykjtiv5398[address] [place], [place] [address]Dr. Shahbaz Rogel Potassium [Moles/Vol] 3.7 mmol/L Normal 3.5-5.1 [facility] Comment on above: Performed By: #### B MP ####[facility] Jrxuhvzkik1735[address] [place], [place] [address]Dr. Shahbaz Rogel Sodium [Moles/Vol] 140 mmol/L Normal 136-145 [facility] Comment on above: Performed By: #### B MP ####[facility] Mttirkkgnp[address] [place], [place] [address]Dr. Shahbaz Rogel Urea nitrogen [Mass/Vol] 14.0 mg/dL Normal 7.0-18.0 [facility] Comment on above: Performed By: #### B MP ####[facility] Lyvudthzhi3416[address] [place], [place] [address]Dr. Shahbaz Rogel Urea nitrogen/Creatinine [Mass ratio] 18.2 mg/mg Normal [facility] Comment on above: Performed By: #### B MP ####[facility] Dzzzwjzpbi7139[address] [place], [place] [address]Dr. Shahbaz Rogel RESPIRATORY PANEL PLUSon Adenovirus Not detected Normal NOT DETECTED [facility] Comment on above: Performed By: #### R SPLUS ####[facility] Bsnqbyyzvh2567[address] [place], [place] [address]Dr. Shahbaz Rogel B. Parapertusis Not detected Normal NOT DETECTED [facility] Comment on above: Performed By: #### R SPLUS ####[facility] Msrrstusew2487[address] [place], [place] [address]Dr. Shahbaz Rogel B. Pertussis Not detected Normal NOT DETECTED [facility] Comment on above: Performed By: #### R SPLUS ####[facility] Kahmiyabdm64[address] [place], [place] [address]Dr. Shahbaz Rogel Chlamydia Pneumoniae Not detected Normal NOT DETECTED [facility] Comment on above: Performed By: #### R SPLUS ####[facility] Mojieskclu3767[address] [place], [place] [address]Dr. Shahbaz Rogel Coronavirus 229E Not detected Normal NOT DETECTED [facility] Comment on above: Performed By: #### R SPLUS ####[facility] Dshenthrpi4948[address] [place], [place] [address]Dr. Shahbaz Rogel Coronavirus HKU1 Not detected Normal NOT DETECTED [facility] Comment on above: Performed By: #### R SPLUS ####[facility] Sgubrfwduu3476[address] [place], [place] [address]Dr. Shahbaz Rogel Coronavirus NL63 Not detected Normal NOT DETECTED [facility] Comment on above: Performed By: #### R SPLUS ####[facility] Gulanoxxje0141[address] [place], [place] [address]Dr. Shahbaz Rogel Coronavirus OC43 Not detected Normal NOT DETECTED [facility] Comment on above: Performed By: #### R SPLUS ####[facility] Bleeaxoeji524[address] [place], [place] [address]Dr. Shahbaz Rogel Influenza A H1 Not detected Normal NOT DETECTED [facility] Comment on above: Performed By: #### R SPLUS ####[facility] Acopjqddov8266[address] [place], [place] [address]Dr. Shahbaz Rogel Influenza A H1 2009 Not detected Normal NOT DETECTED [facility] Comment on above: Performed By: #### R SPLUS ####[facility] Dwngzxmroh173[address] [place], [place] [address]Dr. Shahbaz Rogel Influenza A H3 Not detected Normal NOT DETECTED [facility] Comment on above: Performed By: #### R SPLUS ####[facility] Mlhcistmou7711[address] [place], [place] [address]Dr. Shahbaz Rogel Influenza B Not detected Normal NOT DETECTED [facility] Comment on above: Performed By: #### R SPLUS ####[facility] Wxtjepanyn870[address] [place], [place] [address]Dr. Lilajarrod Rogel Metapneumovirus Detected Abnormal NOT DETECTED [facility] Comment on above: Performed By: #### R SPLUS ####[facility] Jodfirvgmm7204[address] [place], [place] [address]Dr. Shahbaz Rogel Mycoplas. Pneumoniae Not detected Normal NOT DETECTED [facility] Comment on above: Performed By: #### R SPLUS ####[facility] Enodhchouj9[address] [place], [place] [address]Dr. Shahbaz Rogel Parainfluenza 1 Not detected Normal NOT DETECTED [facility] Comment on above: Performed By: #### R SPLUS ####[facility] Srmumsxmzh877[address] [place], [place] [address]Dr. Shahbaz Rogel Parainfluenza 2 Not detected Normal NOT DETECTED [facility] Comment on above: Performed By: #### R SPLUS ####[facility] Rqvlirgfnl0433[address] [place], [place] [address]Dr. Shahbaz Rogel Parainfluenza 3 Not detected Normal NOT DETECTED [facility] Comment on above: Performed By: #### R SPLUS ####[facility] Dtppcftqck6[address] [place], [place] [address]Dr. Shahbaz Rogel Parainfluenza 4 Not detected Normal NOT DETECTED [facility] Comment on above: Performed By: #### R SPLUS ####[facility] Veldpqfvvc3312[address] [place], [place] [address]Dr. Shahbaz Rogel Rhino/Enterovirus Not detected Normal NOT DETECTED [facility] Comment on above: Performed By: #### R SPLUS ####[facility] Xekosgegrd37[address] [place], [place] [address]Dr. Shahbaz Rogel RP2 Header 1 RESPIRATORY PANEL: VIRUSES Normal [facility] Comment on above: Performed By: #### R SPLUS ####[facility] Tuymowxktc9004[address] [place], [place] [address]Dr. Shahbaz Rogel RP2 Header 2 RESPIRATORY PANEL: BACTERIA Normal [facility] Comment on above: Performed By: #### R SPLUS ####[facility] Yqjyenuctk34[address] [place], [place] [address]Dr. Shahbaz Rogel RSV Not detected Normal NOT DETECTED [facility] Comment on above: Performed By: #### R SPLUS ####[facility] Iryxaizyow8013[address] [place], [place] [address]Dr. Shahbaz Rogel SARS-CoV-2 (COVID-19) RNA PAVAN+probe Ql (Unsp spec) Not detected Normal NOT DETECTED [facility] Comment on above: Performed By: #### R SPLUS ####[facility] Dnuyxvniag9927[address] [place], [place] [address]Dr. Shahbaz Rogel CARDIAC ROSALINA 3-6on 3 CK [Catalytic activity/Vol] 148 U/L Normal 26-192 [facility] Comment on above: Performed By: #### C MREP ####[facility] Nwftztqick5830 [place] [address]Dr. Shahbaz Rogel CK.MB [Mass/Vol] 0.84 ng/mL Normal <=3.60 [facility] Comment on above: Performed By: #### C MREP ####[facility] Kxsiqdmqot3246 [place] [address]Dr. Shahbaz Rogel HSTROP 6.4 pg/mL Normal 4.0-51.3 [facility] Comment on above: Result Comment: CUT- OFF POINTS HAVE BEEN ESTABLISHED BASED ON THE FOURTH UNIVERSAL DEFINITIONS OF MYOCARDIALINFARCTION. THE UPPER REFERENCE LIMIT (URL) OF TROPONIN, DEFINED THE 99TH PERCENTILE OFcTnI DISTRIBUTION IN A REFERENCE POPULATION, HAS BEEN CONFIRMED THE DECISION THRESHOLDFOR ME DIAGNOSIS. Performed By: #### C MREP ####[facility] Ilhzzhztxb1508 [place] [address]Dr. Shahbaz Rogel CBC W MANUAL DIFFon 01-04-20 23 ATYPICAL LYMPH # Normal [facility] Comment on above: Performed By: #### C CAIN ####[facility] Ybjvvhzmij0105 [place] [address]Dr. Shahbaz Rogel ATYPICAL LYMPH % Normal [facility] Comment on above: Performed By: #### C BCMAN ####[facility] Tfqoalmxon5509 [place] [address]Dr. Shahbaz Juan F BAND # 0.0 103/ul Normal 0.0-0.3 [facility] Comment on above: Performed By: #### C CHANELMAN ####[facility] Dxtavluded6474 [place] [address]Dr. Shahbaz Juan F BAND % 0 % Normal 0-5 [facility] Comment on above: Performed By: #### C BCMAN ####[facility] Isenyylvbu8733 [place] [address]Dr. Shahbaz Juan F BASOM # 0.00 103/ul Normal 0.00-0.10 [facility] Comment on above: Performed By: #### C CAIN ####[facility] Jpodqbxuqq4917 [place] [address]Dr. Shahbaz Rogel BASOM % 0.0 % Critically low 0.2-2.0 [facility] Comment on above: Performed By: #### C CAIN ####[facility] Cwkjbpivkt8805 [place] [address]Dr. Shahbaz Rogel BLAST # Normal [facility] Comment on above: Performed By: #### C CAIN ####[facility] Ovoamqddrq[address] [place], [place] [address]Dr. Shahbaz Rogel BLAST % Normal [facility] Comment on above: Performed By: #### C CAIN ####[facility] Jyxiatuwwo5987[address] [place], [place] [address]Dr. Shahbaz Rogel CORRECTED WBC Normal 4.0-11.0 [facility] Comment on above: Performed By: #### C CAIN ####[facility] Gcvzfticqa080[address] [place], [place] [address]Dr. Shahbaz Rogel EOS # 0.02 103/ul Normal 0.00-0.70 [facility] Comment on above: Performed By: #### C CAIN ####[facility] Saicvlflps636[address] [place], [place] [address]Dr. Shahbaz Rogel EOS% 1.0 % Normal 0.9-7.0 [facility] Comment on above: Performed By: #### C CAIN ####[facility] Mxzuaieyer904[address] [place], [place] [address]Dr. Shahbaz Rogel HCT 37.5 % Normal 36.0-48.0 [facility] Comment on above: Performed By: #### C CAIN ####[facility] Lzgnsmisea1473[address] [place], [place] [address]Dr. Shahbaz Rogel HGB 12.0 g/dl Normal 12.0-16.0 [facility] Comment on above: Performed By: #### C CAIN ####[facility] Nkugzfzijg35[address] [place], [place] [address]Dr. Shahbaz Rogel LYMPHM # 0.21 103/ul Critically low 1.20-3.80 [facility] Comment on above: Performed By: #### C CAIN ####[facility] Adyedxcghu0617 [place] [id number]. Shahbaz Rogel LYMPHM% 13.0 % Critically low 20.5-60.0 [facility] Comment on above: Performed By: #### C CAIN ####[facility] Icffgctdxa5717 [place] [id number]. Shahbaz Rogel MCH 27.8 pg Normal 26.7-34.0 [facility] Comment on above: Performed By: #### C CAIN ####[facility] Utzbzyvusr6798 [place] [address]Dr. Shahbaz Rogel MCHC 32.0 g/dl Normal 29.9-35.2 [facility] Comment on above: Performed By: #### C CAIN ####[facility] Bwnvorimvt2667[address] [place], [place] [address]Dr. Shahbaz Rogel MCV 86.8 fL Normal 81.0-99.0 [facility] Comment on above: Performed By: #### C CAIN ####[facility] Xfwawftupz86[address] [place], [place] [address]Dr. Shahbaz Rogel METAMYELOCYTE # Normal [facility] Comment on above: Performed By: #### C CAIN ####[facility] Oejnypoyie2837 [place] [address]Dr. Shahbaz Rogel METAMYELOCYTE % Normal [facility] Comment on above: Performed By: #### C CAIN ####[facility] Jgnuwkorlq9798 [place] [id number]. Shahbaz Rogel MONOM# 0.02 103/ul Critically low 0.30-0.80 [facility] Comment on above: Performed By: #### C CAIN ####[facility] Saawzfkjww7406 [place] [address]Dr. Shahbaz Rogel MONOM% 1.0 % Critically low 1.7-12.0 [facility] Comment on above: Performed By: #### C CAIN ####[facility] Bomfamicod58[address] [place], [place] [address]Kd. Shahbaz Rogel MPV 9.5 fL Normal 9.5-13.5 [facility] Comment on above: Performed By: #### C CAIN ####[facility] Jsijgtanwp6167 [place], [place] [address]Zm. Shahbaz Rogel MYELOCYTE # Normal [facility] Comment on above: Performed By: #### C CAIN ####[facility] Lcjraulxya7595 [place] [id number]. Shahbaz Rogel MYELOCYTE % Normal [facility] Comment on above: Performed By: #### C CAIN ####[facility] Wcnquvlgan2300 [place] [id number]. Shahbaz Rogel NRBC Normal [facility] Comment on above: Performed By: #### C CAIN ####[facility] Bowtwvklwx8910 [place] [id number]. Shahbaz Rogel PLT 173 103/ul Normal 150-450 [facility] Comment on above: Performed By: #### C CAIN ####[facility] Trgetrmjrd9375 [place] [id number]. Shahbaz Rogel RBC 4.32 106/ul Normal 4.20-5.40 [facility] Comment on above: Performed By: #### C CAIN ####[facility] Nnotqwgcjr3569 [place] [id number]. Shahbaz Rogel RDW 13.1 % Normal 11.0-15.0 [facility] Comment on above: Performed By: #### C CAIN ####[facility] Jbbhjjgyod5239 [place] [id number]. Shahbaz Rogel SEG # 1.36 103/ul Critically low 1.40-6.50 [facility] Comment on above: Performed By: #### C CAIN ####[facility] Sibssrzgpx0253 [place] [id number]. Shahbaz Rogel SEG % 85.0 % Critically high 43.0-75.0 [facility] Comment on above: Performed By: #### C CAIN ####[facility] Ndelfrjheu1403 [place] [address]Dr. Shahbaz Rogel WBC 1.6 103/ul Critically low 4.0-11.0 [facility] Comment on above: Performed By: #### C CAIN ####[facility] Gjwdeojszd45[address] [place], [place] [address]Dr. Shahbaz Rogel CT CHEST WO CONon 3 CT CHEST WO CON Normal [facility] ER URINE PROFILEon 3 Bilirubin Ql (U) Negative Normal NEGATIVE [facility] Comment on above: Performed By: #### E RUR ####[facility] Rzgmjxzixw9931[address] [place], [place] [address]Dr. Shahbaz Rogel Clarity (U) CLEAR Normal CLEAR [facility] Comment on above: Performed By: #### E RUR ####[facility] Rxstpzbwdc8955[address] [place], [place] [address]Dr. Shahbaz Rogel Color (U) LT. YELLOW Normal YELLOW [facility] Comment on above: Performed By: #### E RUR ####[facility] Tpdoxeqprj8245[address] [place], [place] [address]Dr. Shahbaz Rogel ERUAHD A micrscopic examina tion will be performed if indicated. Normal [facility] Comment on above: Performed By: #### E RUR ####[facility] Egdydgdqtq3272[address] [place], [place] [address]Dr. Shahbaz Rogel Glucose Ql (U) Negative Normal NEGATIVE [facility] Comment on above: Performed By: #### E RUR ####[facility] Imowpykidl6634[address] [place], [place] [address]Dr. Shahbaz Rogel Hemoglobin Ql (U) Negative Normal NEGATIVE [facility] Comment on above: Performed By: #### E RUR ####[facility] Gctjqojwzf2239[address] [place], [place] [address]Dr. Shahbaz Rogel Ketones Ql (U) Negative Normal NEGATIVE [facility] Comment on above: Performed By: #### E RUR ####[facility] Adolaukgkx6452[address] [place], [place] [address]Dr. Shahbaz Rogel LEUKOCYTES Negative Normal NEGATIVE [facility] Comment on above: Performed By: #### E RUR ####[facility] Olfokojfbh6478 [place] [address]Dr. Shahbaz Rogel Nitrite Ql (U) Negative Normal NEGATIVE [facility] Comment on above: Performed By: #### E RUR ####[facility] Gsfldzhaki76[address] [place], [place] [address]Dr. Shahbaz Rogel pH (U) 6.0 [pH] Normal 5-9 [facility] Comment on above: Performed By: #### E RUR ####[facility] Tksbhbuzhb5[address] [place], [place] [address]Dr. Shahbaz Rogel SPEC GRAVITY <=1.005 Abnormal 1.005-<=1. 025 [facility] Comment on above: Performed By: #### E RUR ####[facility] Ouvmbhrnil64[address] [place], [place] [address]Dr. Shahbaz Rogel UA PROTEIN Negative Normal NEGATIVE/ TRACE [facility] Comment on above: Performed By: #### E RUR ####[facility] [id number] [place], [place] [address]Dr. Shahbaz Rogel UR MICRO IND NOT INDICATED Normal [facility] Comment on above: Performed By: #### E RUR ####[facility] N[address]cttjqqhy[address] [place], [place] [address]Dr. Shahbaz Rogel Urobilinogen Qn (U) 0.2 {Melida'U}/dL Normal 0.2 - 1. 0 [facility] Comment on above: Performed By: #### E RUR ####[facility] Qshlgkmwps29[address] [place], [place] [address]Dr. Shahbaz Rogel LACTATE/LACTIC ACIDon 2022 Lactate [Moles/Vol] 1.5 mmol/L Normal 0.4-2.0 [facility] Comment on above: Performed By: #### L ACT ####[facility] Yygcotctll[address] [place], [place] [address]Dr. Shahbaz Rogel PROF CHEM 8 (BAS METB)on Anion gap [Moles/Vol] 11.6 mmol/L Normal Th [facility] Comment on above: Performed By: #### B MP ####[facility] [address]ys[address] [place] [address]Dr. Lilajarrod Rogel Calcium [Mass/Vol] 8.1 mg/dL Critically low 8.5-10.1 [facility] Comment on above: Performed By: #### B MP ####[facility] Thjzfayudo04[address] [place], [place] [address]Dr. Lilajarrod Juan F Chloride [Moles/Vol] 109 mmol/L Critically high 98-107 [facility] Comment on above: Performed By: #### B MP ####[facility] Auzlzzozkc9[address] [place], [place] [address]Dr. Lilajarrod Juan F CO2 [Moles/Vol] 25.2 mmol/L Normal 21.0-32.0 [facility] Comment on above: Performed By: #### B MP ####[facility] Oanntuqpbt[address] [place], [place] [address]Dr. Lilajarrod Juan F Creatinine [Mass/Vol] 0.89 mg/dL Normal 0.55-1.02 [facility] Comment on above: Performed By: #### B MP ####[facility] Xkwkiubvld7[address] [place], [place] [address]Dr. Lilajarrod Juan F EGFR-AF SERBIAN >60 Normal >=60 [facility] Comment on above: Performed By: #### B MP ####[facility] Ewqcccgzrz7[address] [place], [place] [address]Dr. Shahbaz Rogel EGFR-NON AF SERBIAN >60 Normal >=60 [facility] Comment on above: Performed By: #### B MP ####[facility] Qdiezqetyo5832[address] [place], [place] [address]Dr. Shahbaz Rogel Glucose [Mass/Vol] 167 mg/dL Critically high 74-106 [facility] Comment on above: Performed By: #### B MP ####[facility] Nfubajocax9[address] [place], [place] [address]Dr. Shahbaz Rogel Potassium [Moles/Vol] 3.8 mmol/L Normal 3.5-5.1 [facility] Comment on above: Performed By: #### B MP ####[facility] Z[address]ltvkkab[address] [place] [address]Dr. Shahbaz Juan F Sodium [Moles/Vol] 142 mmol/L Normal 136-145 [facility] Comment on above: Performed By: #### B MP ####[facility] Btqmhbxket9[address] [place] [id number]. Shahbaz Juan F Urea nitrogen [Mass/Vol] 9.0 mg/dL Normal 7.0-18.0 [facility] Comment on above: Performed By: #### B MP ####[facility] Wpivxjpvry37[address] [place], [place] [address]Dr. Shahbaz Juan F Urea nitrogen/Creatinine [Mass ratio] 10.1 mg/mg Normal [facility] Comment on above: Performed By: #### B MP ####[facility] Qsaktbefvb0732[address] [place], [place] [address]Dr. Shahbaz Juan F CARDIAC ROSALINA ADMITon 023 CK [Catalytic activity/Vol] 173 U/L Normal 26-192 [facility] Comment on above: Performed By: #### C EZEKIEL, BMP ####[facility] Ylynuwpngt46[address] [place], [place] [address]Dr. Shahbaz Juan F CK.MB [Mass/Vol] 0.55 ng/mL Normal <=3.60 [facility] Comment on above: Performed By: #### C EZEKIEL, BMP ####[facility] Gultszdaoa4396[address] [place], [place] [address]Dr. Shahbaz Juan F HSTROP 5.9 pg/mL Normal 4.0-51.3 [facility] Comment on above: Result Comment: CUT- OFF POINTS HAVE BEEN ESTABLISHED BASED ON THE FOURTH UNIVERSAL DEFINITIONS OF MYOCARDIALINFARCTION. THE UPPER REFERENCE LIMIT (URL) OF TROPONIN, DEFINED THE 99TH PERCENTILE OFcTnI DISTRIBUTION IN A REFERENCE POPULATION, HAS BEEN CONFIRMED THE DECISION THRESHOLDFOR ME DIAGNOSIS. Performed By: #### C EZEKIEL, BMP ####[facility] Hievoxaesq9[address] [place], [place] [address]Dr. Shahbaz Rogel LEN 76 ng/mL Normal 9-82 [facility] Comment on above: Performed By: #### C JOSSYM, BMP ####[facility] [address]biqccnhqa[address] [place] [address]Dr. Shahbaz Rogel CBC W MANUAL DIFFon 01-03-20 23 ATYPICAL LYMPH # Normal [facility] Comment on above: Performed By: #### C CAIN ####[facility] Vbnmjklzhk2546 [place] [address]Dr. Shahbaz Rogel ATYPICAL LYMPH % Normal [facility] Comment on above: Performed By: #### C CAIN ####[facility] Qccfetzvhn3323 [place] [address]Dr. Shahbaz Rogel BAND # Normal 0.0-0.3 [facility] Comment on above: Performed By: #### Cheri BARLOW ####[facility] C[address]qjnvdpf[address] [place], [place] [address]Dr. Shahbaz Rogel BAND % Normal 0-5 [facility] Comment on above: Performed By: #### Cheri BARLOW ####[facility] Vpkpfglssh15[address] [place], [place] [address]Dr. Shahbaz Rogel BASOM # 0.00 103/ul Normal 0.00-0.10 [facility] Comment on above: Performed By: #### Cheri BARLOW ####[facility] Yujzkgdgbd35[address] [place], [place] [address]Dr. Shahbaz Rogel BASOM % 0.0 % Critically low 0.2-2.0 [facility] Comment on above: Performed By: #### Cheri BARLOW ####[facility] [address]rzezx[address] [place], [place] [address]Dr. Shahbaz Rogel BLAST # Normal [facility] Comment on above: Performed By: #### Cheri BARLOW ####[facility] Vhmbugghqz[address] [place], [place] [address]Dr. Shahbaz Rogel BLAST % Normal [facility] Comment on above: Performed By: #### Cheri BARLOW ####[facility] Fzpsljqmow[address] [place], [place] [address]Dr. Shahbaz Rogel CORRECTED WBC Normal 4.0-11.0 [facility] Comment on above: Performed By: #### C CAIN ####[facility] [address]egy[address]xd[address] [place], [place] [address]Sb. Shahbaz Rogel EOS # 0.03 103/ul Normal 0.00-0.70 [facility] Comment on above: Performed By: #### C CAIN ####[facility] Ghthtclfoh64[address] [place] [address]Dr. Shahbaz Rogel EOS% 1.0 % Normal 0.9-7.0 [facility] Comment on above: Performed By: #### C CAIN ####[facility] Oafxuxuqic7647 [place] [address]Dr. Shahbaz Rogel HCT 42.8 % Normal 36.0-48.0 [facility] Comment on above: Performed By: #### C CAIN ####[facility] Icocezetgc1386 [place] [address]Dr. Shahbaz Rogel HGB 14.1 g/dl Normal 12.0-16.0 [facility] Comment on above: Performed By: #### C CAIN ####[facility] Izwbwuvdiy4662 [place] [address]Dr. Shahbaz Rogel LYMPHM # 0.64 103/ul Critically low 1.20-3.80 [facility] Comment on above: Performed By: #### C CAIN ####[facility] Etydkhofnh5145 [place] [address]Dr. Shahbaz Rogel LYMPHM% 23.0 % Normal 20.5-60.0 [facility] Comment on above: Performed By: #### C CAIN ####[facility] Rjzyzyllxb0167 [place] [address]Dr. Shahbaz Rogel MCH 28.0 pg Normal 26.7-34.0 [facility] Comment on above: Performed By: #### C CAIN ####[facility] Tvrfbdndwn[address] [place] [address]Dr. Shahbaz Rogel MCHC 32.9 g/dl Normal 29.9-35.2 [facility] Comment on above: Performed By: #### Cheri BARLOW ####[facility] Ruagccdqbt0845 [place] [address]Dr. Shahbaz Rogel MCV 84.9 fL Normal 81.0-99.0 [facility] Comment on above: Performed By: #### C BCBRICE ####[facility] Lovcbifwqz6928 [place] [address]Dr. Shahbaz Rogel METAMYELOCYTE # Normal [facility] Comment on above: Performed By: #### C CAIN ####[facility] Kitowlvigk3073 [place] [address]Dr. Shahbaz Rogel METAMYELOCYTE % Normal [facility] Comment on above: Performed By: #### C CAIN ####[facility] Atnrvhsulk[address] [place], [place] [address]Dr. Shahbaz Rogel MONOM# 0.31 103/ul Normal 0.30-0.80 [facility] Comment on above: Performed By: #### C CAIN ####[facility] Zajgnvnzlm[address] [place], [place] [address]Dr. Shahbaz Rogel MONOM% 11.0 % Normal 1.7-12.0 [facility] Comment on above: Performed By: #### C CAIN ####[facility] G[address]wtzowh[address] [place], [place] [address]Dr. Shahbaz Rogel MPV 9.5 fL Normal 9.5-13.5 [facility] Comment on above: Performed By: #### C CAIN ####[facility] U[address]atjvkdk[address] [place], [place] [address]Dr. Shahbaz Rogel MYELOCYTE # Normal [facility] Comment on above: Performed By: #### C CAIN ####[facility] Unfgkknytu5184 [place] [phone]. Shahbaz Rogel MYELOCYTE % Normal [facility] Comment on above: Performed By: #### C CAIN ####[facility] Lisniayufn[address] [place], [place] [address]Dr. Shahbaz Rogel NRBC Normal [facility] Comment on above: Performed By: #### C CAIN ####[facility] O[address]hytptu[address] [place], [place] [address]Dr. Shahbaz Rogel PLT 197 103/ul Normal 150-450 [facility] Comment on above: Performed By: #### C CHANELBRICE ####[facility] Hknatlcimf35[address] [place], [place] [address]Tf. Shahbaz Rogel RBC 5.04 106/ul Normal 4.20-5.40 [facility] Comment on above: Performed By: #### C CAIN ####[facility] Pziamemgph36[address] [place], [place] [address]Mi. Shahbaz Rogel RDW 13.2 % Normal 11.0-15.0 [facility] Comment on above: Performed By: #### C CAIN ####[facility] Hjjtfgdwxa5[address] [place], [place] [address]Ej. Shahbaz Rogel SEG # 1.82 103/ul Normal 1.40-6.50 [facility] Comment on above: Performed By: #### C CAIN ####[facility] Xjmnqkarmx7470 [place], [place] [address]Dw. Shahbaz Rogel SEG % 65.0 % Normal 43.0-75.0 [facility] Comment on above: Performed By: #### C CAIN ####[facility] Etgocxfuiy88[address] [place], [place] [address]Bn. Shahbaz Rogel WBC 2.8 103/ul Critically low 4.0-11.0 [facility] Comment on above: Performed By: #### C CAIN ####[facility] Hiquwktzrn6[address] [place], [place] [address]Fw. Shahbaz Rogel Covid-19 PCR ([facility])on SARS-CoV-2 (COVID-19) RNA PAVAN+probe Ql (Unsp spec) Not detected Normal NOT DETECTED [facility] Comment on above: Result Comment: When [...] for this test is supported by the [place] of Health and Human Service's declaration that [...] be used). Performed By: #### C VDTBH ####[facility] Gkwuotande[address] [place] [address]Dr. Shahbaz Rogel D-DIMERon 01-02-2023 D-DIMER 0.38 mg/L FEU Normal <=0.59 [facility] Comment on above: Performed By: #### D DIM ####[facility] Ghmjdnojzr[address] [place], [place] [address]DrChen Rogel D-DIMER COMMENTS SEE BELOW Normal [facility] Comment on above: Result Comment: Incr [...] generalized hospitalization. Performed By: #### D DIM ####[facility] Wdrwvpjtza3[address] [place], [place] [address]Dr. Shahbaz Rogel LACTATE/LACTIC ACIDon 2022 Lactate [Moles/Vol] 2.1 mmol/L Critically high 0.4-2.0 [facility] Comment on above: Performed By: #### L ACT ####[facility] Aslmponsgm69[address] [place], [place] [address]DrChen Rogel PROF CHEM 8 (BAS METB)on Anion gap [Moles/Vol] 14.3 mmol/L Normal Th [facility] Comment on above: Performed By: #### C MADM, BMP ####[facility] Nazerwdyrq0316 [place] [phone]. Shahbaz Rogel Calcium [Mass/Vol] 9.0 mg/dL Normal 8.5-10.1 [facility] Comment on above: Performed By: #### Cheri FALCON, BMP ####[facility] Wswzmpmiyp24[address] [place], [place] [address]Dr. Shahbaz Rogel Chloride [Moles/Vol] 102 mmol/L Normal 98-107 [facility] Comment on above: Performed By: #### C EZEKIEL, BMP ####[facility] Ktnwgqbizq96[address] [place], [place] [address]Dr. Shahbaz Rogel CO2 [Moles/Vol] 25.5 mmol/L Normal 21.0-32.0 [facility] Comment on above: Performed By: #### C EZEKIEL, BMP ####[facility] Ahpfpljeot8462[address] [place], [place] [address]Dr. Shahbaz Rogel Creatinine [Mass/Vol] 1.01 mg/dL Normal 0.55-1.02 [facility] Comment on above: Performed By: #### Cheri FALCON, BMP ####[facility] Ueutyhvjwe[address] [place], [place] [address]Dr. Shahbaz Rogel EGFR-AF SERBIAN >60 Normal >=60 [facility] Comment on above: Performed By: #### C EZEKIEL, BMP ####[facility] Qcjpimxowp0825[address] [place], [place] [address]Dr. Shahbaz Rogel EGFR-NON AF SERBIAN 56 mL/min/1.73m2 Critically low >=60 [facility] Comment on above: Performed By: #### Cheri FALCON, BMP ####[facility] Rnkyepoqcs[address] [place], [place] [address]Dr. Shahbaz Rogel Glucose [Mass/Vol] 105 mg/dL Normal 74-106 [facility] Comment on above: Performed By: #### Cheri FALCON, BMP ####[facility] Qyjzielhxv8[address] [place], [place] [address]Dr. Shahbaz Rogel Potassium [Moles/Vol] 3.8 mmol/L Normal 3.5-5.1 [facility] Comment on above: Performed By: #### C JOSSYM, BMP ####[facility] Spoiyogwqn1499[address] [place], [place] [address]Dr. Shahbaz Juan F Sodium [Moles/Vol] 138 mmol/L Normal 136-145 [facility] Comment on above: Performed By: #### C MADM, BMP ####[facility] Yluvzliwmb[address] [place], [place] [address]Dr. Shahbaz Juan F Urea nitrogen [Mass/Vol] 9.0 mg/dL Normal 7.0-18.0 [facility] Comment on above: Performed By: #### C EZEKIEL, BMP ####[facility] Lufczlvwkj[address] [place], [place] [address]Dr. Shahbaz Rogel Urea nitrogen/Creatinine [Mass ratio] 8.9 mg/mg Normal [facility] Comment on above: Performed By: #### C EZEKIEL, BMP ####[facility] Jyzxnvrhwg7024[address] [place], [place] [address]Dr. Shahbaz Rogel XR CHEST 1 Von 01-02-2023 XR CHEST 1 V Normal [facility] INSULINon 11-02-2022 Insulin 6.0 uIU/mL Normal 2.6-24.9 [facility] Comment on above: Performed By: #### I NSULIN ####[facility] F[address]xzjdfjkd6[address] [place], [place] [address]Dr. Shahbaz Rogel CBC AUTO DIFFon 11-01-2022 BASO # 0.0 103/ul Normal 0.0-0.1 [facility] Comment on above: Performed By: #### C BC ####[facility] Codbeydthy5[address] [place], [place] [address]Dr. Shahbaz Rogel Basophils/100 WBC (Bld) 0.5 % Normal 0.2-2.0 [facility] Comment on above: Performed By: #### C BC ####[facility] Jcdjbvejga70[address] [place], [place] [address]Dr. Shahbaz Rogel EO # 0.2 103/ul Normal 0.0-0.7 [facility] Comment on above: Performed By: #### C BC ####[facility] Jwhbqokkgw[address] [place], [place] [address]Dr. Shahbaz Rogel Eosinophils/100 WBC (Bld) 5.2 % Normal 0.9-7.0 [facility] Comment on above: Performed By: #### C BC ####[facility] Mphyzmutuv[address] [place], [place] [address]Dr. Shahbaz Rogel Erythrocyte distribution width (RBC) [Ratio] 12.7 % Normal 11.0-15.0 [facility] Comment on above: Performed By: #### C BC ####[facility] Hmtjouvglz9[address] [place], [place] [address]Dr. Shahbaz Rogel Hematocrit (Bld) [Volume fraction] 46.4 % Normal 36.0-48.0 [facility] Comment on above: Performed By: #### C BC ####[facility] Opiqlxmeru422[address] [place], [place] [address]Dr. Shahbaz Rogel Hemoglobin (Bld) [Mass/Vol] 14.9 g/dL Normal 12.0-16.0 [facility] Comment on above: Performed By: #### C BC ####[facility] F[address]viwybfz[address] [place], [place] [address]Dr. Shahbaz Rogel IG # 0.00 10e3/ul Normal 0.00-0.03 [facility] Comment on above: Performed By: #### C BC ####[facility] Uauzliokhv86[address] [place], [place] [address]Dr. Shahbaz Rogel IG % 0.0 % Normal 0.0-0.5 [facility] Comment on above: Performed By: #### C BC ####[facility] Yhlkbvxzuz[address] [place], [place] [address]Dr. Shahbaz Rogel LYMPH # 1.1 103/ul Critically low 1.2-3.8 [facility] Comment on above: Performed By: #### C BC ####[facility] Cjivfibygh[address] [place], [place] [address]Dr. Shahbaz Rogel Lymphocytes/100 WBC (Bld) 25.5 % Normal 20.5-60.0 [facility] Comment on above: Performed By: #### C BC ####[facility] [address]vfeijcbkw[address] [place] [address]Dr. Shahbaz Juan F MANUAL DIFF REQ NO Normal [facility] Comment on above: Performed By: #### C BC ####[facility] Lffndifzzp5198 [place] [address]Dr. Shahbaz Juan F MCH (RBC) [Entitic mass] 27.8 pg Normal 26.7-34.0 [facility] Comment on above: Performed By: #### C BC ####[facility] Lupjgfnbdo8243 [place] [address]Dr. Shahbaz Juan F MCHC (RBC) [Mass/Vol] 32.1 g/dL Normal 29.9-35.2 [facility] Comment on above: Performed By: #### C BC ####[facility] Zsfpoemfuz8755 [place] [address]Dr. Lilajarrod Rogel MCV (RBC) [Entitic vol] 86.6 fL Normal 81.0-99.0 [facility] Comment on above: Performed By: #### C BC ####[facility] Uiyxpnqatp[address] [place], [place] [address]Dr. Lilajarrod Rogel MONO # 0.2 103/ul Critically low 0.3-0.8 [facility] Comment on above: Performed By: #### C BC ####[facility] Mjzxwwfnhm[address] [place], [place] [address]Dr. Shahbaz Rogel Monocytes/100 WBC (Bld) 5.4 % Normal 1.7-12.0 [facility] Comment on above: Performed By: #### C BC ####[facility] Cgvcfxtobz4986 [place] [address]Dr. Shahbaz Rogel NEUT # 2.7 103/ul Normal 1.4-6.5 [facility] Comment on above: Performed By: #### C BC ####[facility] Asxfqslulc[address] [place], [place] [address]Dr. Shahbaz Rogel Neutrophils/100 WBC (Bld) 63.4 % Normal 43.0-75.0 [facility] Comment on above: Performed By: #### C BC ####[facility] Ylokpkrcmh1380 [place] [address]Dr. Shahbaz Rogel Platelet mean volume (Bld) [Entitic vol] 9.4 fL Critically low 9.5-13.5 [facility] Comment on above: Performed By: #### C BC ####[facility] Ingievldvb8040 [place] [address]Dr. Shahbaz Rogel PLT 216 103/ul Normal 150-450 [facility] Comment on above: Performed By: #### C BC ####[facility] Hskcxyytdi7787 [place] [address]Dr. Shahbaz Rogel RBC 5.36 106/ul Normal 4.20-5.40 [facility] Comment on above: Performed By: #### C BC ####[facility] Bjmvlqaukc3[address] [place], [place] [address]Dr. Shahbaz Rogel WBC 4.2 103/ul Normal 4.0-11.0 [facility] Comment on above: Performed By: #### C BC ####[facility] Cmrdipauaz[address]66 [place] [address]Dr. Shahbaz Rogel FREE THYROXINE INDEX T7on FTI 2.92 Normal 1.30-4.50 [facility] Comment on above: Performed By: #### C MP, LIPID, T7, TSH ####[facility] Dxbpirvmeg4853 [place] [address]Dr. Shahbaz Rogel T3U 37.0 % Normal 30.0-39.0 [facility] Comment on above: Performed By: #### C MP, LIPID, T7, TSH ####[facility] Pdumyxptcy5623 [place] [address]Dr. Shahbaz Rogel T4 [Mass/Vol] 7.90 ug/dL Normal 4.80-13.90 [facility] Comment on above: Performed By: #### C MP, LIPID, T7, TSH ####[facility] Wfntasyuiy1055 [place] [address]Dr. Shahbaz Rogel GLYCOHEMOGLOBIN A1Con 2022 ADA RECOMMENDATION SEE BELOW Normal [facility] Comment on above: Result Comment: ADA RECOMMENDED LIMIT 4.0 - 6.0 ADA THERAPEUTIC TARGET < 7.0 ACTION SUGGESTED > 7.0 Performed By: #### A 1C ####[facility] Fpkfhhrqig2309 [place] [address]Dr. Shahbaz Rogel Glucose [Mass/Vol] 120 mg/dL Normal [facility] Comment on above: Performed By: #### A 1C ####[facility] Lpggraebuq39[address] [place], [place] [address]Dr. Shahbaz Rogel HbA1c (Bld) [Mass fraction] 5.8 % Normal 4.5-6.2 [facility] Comment on above: Performed By: #### A 1C ####[facility] Jxcbxjriph90[address] [place], [place] [address]Dr. Shabhaz Rogel IRONon 11-01-2022 Iron [Mass/Vol] 54.0 ug/dL Normal 50.0-170.0 [facility] Comment on above: Performed By: #### I GRIS ####[facility] Wqbusyaljx[address] [place], [place] [address]Dr. Shahbaz Rogel LIPID PROFILEon 11-01-2022 CHOL-HDL RATIO NORM SEE BELOW Normal [facility] Comment on above: Result Comment: 3.3 - 4.4 LOW RISK 4.4 - 7.1 AVERAGE RISK 7.1 - 11.0 MODERATE RISK >11.0 HIGH RISK Performed By: #### C MP, LIPID, T7, TSH ####[facility] Cfbillyyzr[address] [place], [place] [address]Dr. Shahbaz Rogel Cholesterol [Mass/Vol] 203 mg/dL Critically high <=200 [facility] Comment on above: Performed By: #### C MP, LIPID, T7, TSH ####[facility] Brznqe[address]au[address] [place], [place] [address]Dr. Shahbaz Rogel Cholesterol in HDL [Mass/Vol] 42 mg/dL Normal 40-60 [facility] Comment on above: Performed By: #### C MP, LIPID, T7, TSH ####[facility] Uxlugduyfy[address] [place] [address]Dr. Shahbaz Rogel Cholesterol in LDL [Mass/Vol] 121.4 mg/dL Normal [facility] Comment on above: Performed By: #### C MP, LIPID, T7, TSH ####[facility] Ttbpfkjgnw8876 [place] [address]Dr. Shahbaz Rogel Cholesterol.total/Chol esterol in HDL [Mass ratio] 4.8 {ratio} Normal [facility] Comment on above: Performed By: #### C MP, LIPID, T7, TSH ####[facility] Lyrgwlhwfx0574 [place] [address]Dr. Shahbaz Rogel HDL NORMAL > or = 60 mg/dl - LO W CARDIOVASCULAR RISK <40 mg/dl - HIGH CARDIOVASCULAR RISK Normal [facility] Comment on above: Performed By: #### C MP, LIPID, T7, TSH ####[facility] Ynaseiiyab[address] [place] [address]Dr. Shahbaz Rogel LDL CALC NORMAL SEE BELOW Normal [facility] Comment on above: Result Comment: <100 mg/dl OPTIMAL 100 - 129 mg/dl NEAR OR ABOVE OPTIMAL 130 - 159 mg/dl BORDERLINE HIGH 160 - 189 mg/dl HIGH >190 mg/dl VERY HIGH Performed By: #### C MP, LIPID, T7, TSH ####[facility] Uqcxnjwoxn9825 [place] [id number]. Shahbaz Rogel Triglyceride [Mass/Vol] 198 mg/dL Critically high <=150 [facility] Comment on above: Performed By: #### C MP, LIPID, T7, TSH ####[facility] Kjslqhhhlk11[address] [place] [address]Dr. Shahbaz Rogel VLDL CALC 39.6 mg/dL Normal [facility] Comment on above: Performed By: #### C MP, LIPID, T7, TSH ####[facility] Jrlhipwigj1287 [place] [phone]. Shahbaz Rogel PROF 14(COMP METB)on 023 Albumin [Mass/Vol] 4.1 g/dL Normal 3.4-5.0 [facility] Comment on above: Performed By: #### C MP, LIPID, T7, TSH ####[facility] Tfaewyxlry4857 [place] [address]Dr. Shahbaz Rogel Albumin/Globulin [Mass ratio] 1.0 {ratio} Normal [facility] Comment on above: Performed By: #### C MP, LIPID, T7, TSH ####[facility] Ajhitgeuuc0584 [place] [address]Dr. Shahbaz Rogel ALP [Catalytic activity/Vol] 126 U/L Critically high 46-116 [facility] Comment on above: Performed By: #### C MP, LIPID, T7, TSH ####[facility] Awofusjunv[address] [place] [address]Dr. Shahbaz Rogel ALT [Catalytic activity/Vol] 30 U/L Normal 14-59 [facility] Comment on above: Performed By: #### C MP, LIPID, T7, TSH ####[facility] Fdxzltpipv8161 [place] [address]Dr. Shahbaz Rogel Anion gap [Moles/Vol] 12.3 mmol/L Normal [facility] Comment on above: Performed By: #### C MP, LIPID, T7, TSH ####[facility] [address]iumtmnkj[address] [place], [place] [address]Dr. Shahbaz Rogel AST [Catalytic activity/Vol] 25 U/L Normal 15-37 [facility] Comment on above: Performed By: #### C MP, LIPID, T7, TSH ####[facility] Wieoqxlokr94[address] [place] [address]Dr. Shahbaz Rogel Bilirubin [Mass/Vol] 0.5 mg/dL Normal 0.2-1.0 [facility] Comment on above: Performed By: #### C MP, LIPID, T7, TSH ####[facility] Vryvdyrxbh12[address] [place] [address]Dr. Shahbaz Rogel Calcium [Mass/Vol] 9.4 mg/dL Normal 8.5-10.1 [facility] Comment on above: Performed By: #### C MP, LIPID, T7, TSH ####[facility] Apslzqrmnr14[address] [place] [address]Dr. Shahbaz Rogel Chloride [Moles/Vol] 104 mmol/L Normal 98-107 [facility] Comment on above: Performed By: #### C MP, LIPID, T7, TSH ####[facility] [address] [place] [id number]. Shahbaz Rogel CO2 [Moles/Vol] 29.6 mmol/L Normal 21.0-32.0 [facility] Comment on above: Performed By: #### C MP, LIPID, T7, TSH ####[facility] [address] [place] [id number]. Shahbaz Rogel Creatinine [Mass/Vol] 0.91 mg/dL Normal 0.55-1.02 [facility] Comment on above: Performed By: #### C MP, LIPID, T7, TSH ####[facility] [address] [place] [id number]. Shahbaz Rogel EGFR-AF SERBIAN >60 Normal >=60 [facility] Comment on above: Performed By: #### C MP, LIPID, T7, TSH ####[facility] [address] [place] [address]Dr. Shahbaz Juan F EGFR-NON AF SERBIAN >60 Normal >=60 [facility] Comment on above: Performed By: #### C MP, LIPID, T7, TSH ####[facility] [address] [place] [id number]. Shahbaz Rogel Globulin (S) [Mass/Vol] 4.0 g/dL Normal [facility] Comment on above: Performed By: #### C MP, LIPID, T7, TSH ####[facility] [address] [place] [phone]. Shahbaz Rogel Glucose [Mass/Vol] 85 mg/dL Normal 74-106 [facility] Comment on above: Performed By: #### C MP, LIPID, T7, TSH ####[facility] [address] [place] [phone]. Shahbaz Rogel Potassium [Moles/Vol] 3.9 mmol/L Normal 3.5-5.1 [facility] Comment on above: Performed By: #### C MP, LIPID, T7, TSH ####[facility] [address] [place] [phone]. Lilajarrod Rogel Protein [Mass/Vol] 8.1 g/dL Normal 6.4-8.2 [facility] Comment on above: Performed By: #### C MP, LIPID, T7, TSH ####[facility] [address] [place] [address]Dr. Shahbaz Rogel Sodium [Moles/Vol] 142 mmol/L Normal 136-145 [facility] Comment on above: Performed By: #### C MP, LIPID, T7, TSH ####[facility] [address] [place] [address]Dr. Shahbaz Rogel Urea nitrogen [Mass/Vol] 9.0 mg/dL Normal 7.0-18.0 [facility] Comment on above: Performed By: #### C MP, LIPID, T7, TSH ####[facility] [address] [place], [place] [address]Dr. Shahbaz Rogel Urea nitrogen/Creatinine [Mass ratio] 9.9 mg/mg Normal [facility] Comment on above: Performed By: #### C MP, LIPID, T7, TSH ####[facility] [address] [place], [place] [address]Dr. Shahbaz Rogel TSHon 11-01-2022 TSH 0.045 uIU/mL Critically low 0.358-3.74 0 [facility] Comment on above: Performed By: #### C MP, LIPID, T7, TSH ####[facility] [address] [place] [address]Dr. Shahbaz Rogel XR HUMERUS LT MIN 2Von 10-01 XR HUMERUS LT MIN 2V Normal [facility] XR LSPINE 2_3 VIEWSon 2021 XR LSPINE 2_3 VIEWS Normal [facility] XR CHEST 1 Von 08-25-2022 XR CHEST 1 V Normal [facility] ACID FAST SMEAR AND CXon Acid Fast Culture Negative Normal [facility] Comment on above: Result Comment: No a ninfa fast bacilli isolated after 6 weeks. Performed By: #### A FB ####[facility] [address] [place] [address]Dr. Shahbaz Rogel Acid Fast Smear Negative Normal [facility] Comment on above: Performed By: #### A FB ####[facility] [address] [place], [place] [address]Nq. Shahbaz Rogel [employer] Specimen Processing Concentration Normal [facility] Comment on above: Performed By: #### A FB ####[facility] [address] [place], [place] [address]Uy. Shahbaz Rogel Bacteria identified Anaer cx Nom (Unsp spec)Ordered By: Rodolfo Harley on 08-13-2022 Anaerobic microbial culture No Anaerobes Isolated [address] [facility] Basophils Auto (Bld) [#/Vol] Ordered By: Rodolfo Harley on 08-12-2022 Basophils (Bld) [#/Vol] 0.0 10*3/uL 0.0-0.[address] [facility] Basophils/100 WBC Auto (Bld) Ordered By: Rodolfo Harley on 08-12-2022 Basophils/100 WBC (Bld) 0.4 % . [facility] Creatinine and Glomerular fi ltration rate.predicted panel (S/P/Bld)Ordered By: Rodolfo Harley on 08-12-2022 Creatinine [Mass/Vol] 0.74 mg/dL 0.44-1.03 [facility] Eosinophils Auto (Bld) [#/Vo l]Ordered By: Rodolfo Harley on 08-12-2022 Eosinophils (Bld) [#/Vol] 0.0 10*3/uL 0.0-0.[address] [facility] Eosinophils/100 WBC Auto (Bl d)Ordered By: Rodolfo Harley on 08-12-2022 Eosinophils/100 WBC (Bld) 0.0 % . [facility] Erythrocyte distribution wid th Auto (RBC) [Ratio]Ordered By: Rodolfo Harley on 08-12-2022 Erythrocyte distribution width (RBC) [Ratio] 14.2 % 11.9-15.[address] [facility] Estimated glomerular filtrat ion rate (GFR) non- AmericanOrdered By: Rodolfo Harley on 08-12-2022 GFR/1.73 sq M.predicted among non-blacks MDRD (S/P/Bld) [Vol rate/Area] > 60 mL/Min [facility] Hematocrit Auto (Bld) [Volum e fraction]Ordered By: Rodolfo Harley on 08-12-2022 Hematocrit (Bld) [Volume fraction] 38.0 % 34.0-46.[address] [facility] Hemoglobin [Mass/volume] in BloodOrdered By: Rodolfo Harley on 08-12-2022 Hemoglobin (Bld) [Mass/Vol] 12.5 g/dL 11.8-15.[address] [facility] Laboratory - Hematology and Cell countsOrdered By: Rodolfo Harley on 08-12-2022 Nucleated RBC/100 WBC (Bld) [Ratio] 0.1 % 0-0.[address] [facility] Leukocytes [#/volume] in Blo od by Automated countOrdered By: Rodolfo Harley on 08-12-2022 WBC (Bld) [#/Vol] 5.8 10*3/uL 4.5-11.0 [facility] Lymphocytes Auto (Bld) [#/Vo l]Ordered By: Rodolfo Harley on 08-12-2022 Lymphocytes (Bld) [#/Vol] 0.7 10*3/uL 1.00-4.[address] [facility] Lymphocytes/100 WBC Auto (Bl d)Ordered By: Rodolfo Harley on 08-12-2022 Lymphocytes/100 WBC (Bld) 11.4 % . [facility] MCH Auto (RBC) [Entitic mass ]Ordered By: Rodolfo Harley on 08-12-2022 MCH (RBC) [Entitic mass] 28.1 pg 24.7-34.[address] [facility] MCHC Auto (RBC) [Mass/Vol]Or dered By: Rodolfo Harley on 08-12-2022 MCHC (RBC) [Mass/Vol] 32.9 g/dL 32.0-35.0 [facility] MCV Auto (RBC) [Entitic vol] Ordered By: Rodolfo Harley on 08-12-2022 MCV (RBC) [Entitic vol] 85.4 fL 80-[address] [facility] Monocytes Auto (Bld) [#/Vol] Ordered By: Rodolfo Harley on 08-12-2022 Monocytes (Bld) [#/Vol] 0.3 10*3/uL 0.0-0.[address] [facility] Monocytes/100 WBC Auto (Bld) Ordered By: Rodolfo Harley on 08-12-2022 Monocytes/100 WBC (Bld) 4.8 % . [facility] Neutrophils Auto (Bld) [#/Vo l]Ordered By: Rodolfo Harley on 08-12-2022 Neutrophils (Bld) [#/Vol] 4.8 10*3/uL 1.8-7.[address] [facility] Neutrophils/100 WBC Auto (Bl d)Ordered By: Rodolfo Harley on 08-12-2022 Neutrophils/100 WBC (Bld) 83.4 % . [facility] No Panel InformationOrdered By: Rodolfo Harley on 08-12-2022 Estimated GFR () > 60 mL/Min [facility] Comment on above: GFR estimated refere nce range: According to KDOQI guidelines, <60 ml/min/1.73m2 is sufficient to diagnose a patient with chronic kidney disease. Pharmacy Creatinine Clearance (Chem 59.[address] [facility] Platelet mean volume Auto (B ld) [Entitic vol]Ordered By: Rodolfo Harley on 08-12-2022 Platelet mean volume (Bld) [Entitic vol] 7.9 fL 6.3-10.[address] [facility] Platelets Auto (Bld) [#/Vol] Ordered By: Rodolfo Harley on 08-12-2022 Platelets (Bld) [#/Vol] 196 10*3/uL 150-[address] [facility] RBC Auto (Bld) [#/Vol]Ordere d By: Rodolfo Harley on 08-12-2022 RBC (Bld) [#/Vol] 4.45 10*6/uL 3.60-5.00 [facility] Serum or plasma anion gap de terminationOrdered By: Rodolfo Harley on 08-12-2022 Anion gap [Moles/Vol] 7.5 mmol/L 6.0-15.0 [facility] Serum or plasma calcium dagoberto urement (mass/volume)Ordered By: Rodolfo Harley on 08-12-2022 Calcium [Mass/Vol] 8.7 mg/dL 8.2-10.2 [facility] Serum or plasma chloride anahy surement (moles/volume)Ordered By: Rodolfo Harley on 08-12-2022 Chloride [Moles/Vol] 108 mmol/L 95-114 [facility] Serum or plasma glucose dagoberto urement (mass/volume)Ordered By: Rodolfo Harley on 08-12-2022 Glucose [Mass/Vol] 133 mg/dL 70-100 [facility] Comment on above: ADA recommended refe rence rangeRandom Glucose Reference Range is dependent on time and content of last meal. Glucose of more than 200 mg/dL in a nonstressed, ambulatory subject supports the diagnosis of Diabetes Mellitus. Serum or plasma potassium me asurement (moles/volume)Ordered By: Rodolfo Harley on 08-12-2022 Potassium [Moles/Vol] 3.7 mmol/L 3.5-5.1 [facility] Serum or plasma sodium measu rement (moles/volume)Ordered By: Rodolfo Harley on 08-12-2022 Sodium [Moles/Vol] 139 mmol/L 136-146 [facility] Serum or plasma total carbon dioxide measurement (moles/volume)Ordered By: Rodolfo Harley on 08-12-2022 CO2 [Moles/Vol] 27.2 mmol/L 22.0-30.0 [facility] Serum or plasma urea nitroge n measurement (mass/volume)Ordered By: Rodolfo Harley on 08-12-2022 Urea nitrogen [Mass/Vol] 14 mg/dL 9-[address] [facility] ABO and Rh group post transf usion reaction Nom (Bld)Ordered By: Rodolfo Harley on 08-10-2022 Microscopic observation Gram stain Nom (Unsp spec) [facility] AF[employer] cultureOrdered By: Sissy Harley on 08-10-2022 Mycobacterium sp identified Org specific cx Nom (Unsp spec) [facility] AF[employer] smearOrdered By: Rodolfo Harley on 08-10-2022 Microscopic observation Smear Nom (Unsp spec) [facility] Aerobic cultureOrdered By: Margie Harley on 08-10-2022 Bacteria identified Aer cx Nom (Unsp spec) No Growth 2 Days [facility] Anaerobic cultureOrdered By: Rodolfo Harley on 08-10-2022 Bacteria identified Anaer cx Nom (Unsp spec) No Anaerobes Isolated [address] [facility] Arterial blood standard base excess determination by calculationOrdered By: Rodolfo Harley on 08-10-2022 Base excess standard Calc (BldA) [Moles/Vol] 5 mmol/L -2-[address] [facility] Blood carbon dioxide, total measurement by calculation (moles/volume)Ordered By: Rodolfo Harley on 08-10-2022 CO2 Calc (Bld) [Moles/Vol] 30 mmol/L 23-[address] [facility] [address] biopsyOrdered By: Rodolfo Harley on 08-10-2022 Hematocrit (Bld) [Volume fraction] 40.0 % 38.0-51.[address] [facility] Fungal cultureOrdered By: Rolanda Harley on 08-10-2022 Fungus identified Cx Nom (Unsp spec) [facility] Glucose Glucometer (BldC) [M ass/Vol]Ordered By: Rodolfo Harley on 08-10-2022 Glucose [Mass/Vol] 126 mg/dL 70-105 [facility] Gram stain for investigation of transfusion reactionOrdered By: Rodolfo Harley on 08-10-2022 Microscopic observation Gram stain Nom (Unsp spec) [facility] Hemoglobin Calc (Bld) [Mass/ Vol]Ordered By: Rdoolfo Harley on 08-10-2022 Hemoglobin (Bld) [Mass/Vol] 13.6 g/dL 12.0-17.[address] [facility] Monocyte %Ordered By: Jean Harley on 08-10-2022 Monocyte % 39.9 mm[Hg] 35-[address] [facility] Monocyte % 45 mm[Hg] 80-[address] [facility] No Panel InformationOrdered By: Rodolfo Harley on 08-10-2022 Chlamydia psittaci Antibodies <1:10 Neg:<1:[address] [facility] Comment on above: This test was develo ped and its performance characteristicsdetermined by [employer]. It has not been cleared or approvedby the Food and Drug Administration. The FDA hasdetermined that such clearance or approval is notnecessary.Performed at: [address] [id number] Director: Shelly Vargas MD, Phone: [phone] Potassium (Bld) [Moles/Vol]O rdered By: Rodolfo Harley on 08-10-2022 Potassium [Moles/Vol] 3.8 mmol/L 3.5-4.9 [facility] Sodium (Bld) [Moles/Vol]Orde red By: Rodolfo Harley on 08-10-2022 Sodium [Moles/Vol] 141 mmol/L 138-146 [facility] Whole blood bicarbonate dagoberto urementOrdered By: Rodolfo Harley on 08-10-2022 HCO3 (Bld) [Moles/Vol] 29.1 mmol/L 22.0-28.0 [facility] Whole blood ionized calcium measurement (moles/volume)Ordered By: Rodolfo Harley on 08-10-2022 Calcium.ionized (Bld) [Moles/Vol] 1280 mmol/L 1.12-1.[address] [facility] Whole blood oxygen saturatio n measurementOrdered By: Rodolfo Harley on 08-10-2022 Oxygen saturation in Blood 84 % 95-[address] [facility] Comment on above: Reference ranges ref lect baseline specimens only Whole blood pHOrdered By: Rolanda Harley on 08-10-2022 pH (Bld) 7.470 Units 7.31-7.[address] [facility] Urine culture routineOrdered By: Rodolfo Harley on 08-07-2022 Bacteria identified Cx Nom (U) [address] [facility] Activated partial thrombopla stin time (aPTT) in platelet poor plasma by coagulation aOrdered By: Rodolfo Harley on 08-05-2022 aPTT Coag (PPP) [Time] 35.9 s 25.1-36.5 [facility] Basophils Auto (Bld) [#/Vol] Ordered By: Rodolfo Harley on 08-05-2022 Basophils (Bld) [#/Vol] 0.0 10*3/uL 0.0-0.[address] [facility] Basophils/100 WBC Auto (Bld) Ordered By: Rodolfo Harley on 08-05-2022 Basophils/100 WBC (Bld) 0.5 % . [facility] Body fluid albumin measureme nt (mass/volume)Ordered By: Rodolfo Harley on 08-05-2022 Albumin (Body fld) [Mass/Vol] 3.8 g/dL 3.2-5.[address] [facility] COVID-19 Positive/NegativeOr dered By: Rodolfo Harley on 08-05-2022 SARS-CoV-2 (COVID-19) N gene PAVAN+probe Ql (Resp) Negative Negative [facility] Comment on above: Testing for SARS-CoV -2 by RT-PCRThis test was developed and its performance characteristics determined by [employer] ([place] and validated at the [facility]. This test has not been FDA cleared [...] on 08-05-2022 Creatinine [Mass/Vol] 0.97 mg/dL 0.44-1.03 [facility] Eosinophils Auto (Bld) [#/Vo l]Ordered By: Rodolfo Harley on 08-05-2022 Eosinophils (Bld) [#/Vol] 0.2 10*3/uL 0.0-0.[address] [facility] Eosinophils/100 WBC Auto (Bl d)Ordered By: Rodolfo Harley on 08-05-2022 Eosinophils/100 WBC (Bld) 4.9 % . [facility] Erythrocyte distribution wid th Auto (RBC) [Ratio]Ordered By: Rodolfo Harley on 08-05-2022 Erythrocyte distribution width (RBC) [Ratio] 14.5 % 11.9-15.[address] [facility] Estimated glomerular filtrat ion rate (GFR) non- AmericanOrdered By: Rodolfo Harley on 08-05-2022 GFR/1.73 sq M.predicted among non-blacks MDRD (S/P/Bld) [Vol rate/Area] 59 mL/Min [facility] FUNGAL CULTUREon 08-05-2022 Fungus (Mycology) Culture Final report Abnormal [facility] Comment on above: Performed By: #### C XFUN ####[facility] [address] [place] [address]Dr. Shahbaz Rogel Fungus Stain Final report Normal [facility] Comment on above: Performed By: #### C XFUN ####[facility] [address] [place] [address]Dr. Shahbaz Rogel Result 1 Comment Abnormal [facility] Comment on above: Result Comment: MILADYS/ Calcofluor preparation: no fungus observed. Performed By: #### C XFUN ####[facility] [address] [place] [address]Dr. Shahbaz Rogel Result Comment: Aspe rgillus versicolor Result 2 Penicillium species Abnormal [facility] Comment on above: Performed By: #### C XFUN ####[facility] [address] [place] [address]Dr. Shahbaz Roegl Globulin Calc (S) [Mass/Vol] Ordered By: Rodolfo Harley on 08-05-2022 Globulin (S) [Mass/Vol] 2.9 g/dL [facility] Hematocrit Auto (Bld) [Volum e fraction]Ordered By: Rodolfo Harley on 08-05-2022 Hematocrit (Bld) [Volume fraction] 43.3 % 34.0-46.[address] [facility] Hemoglobin [Mass/volume] in BloodOrdered By: Rodolfo Harley on 08-05-2022 Hemoglobin (Bld) [Mass/Vol] 14.3 g/dL 11.8-15.[address] [facility] Laboratory - CoagulationOrde red By: Rodolfo Harley on 08-05-2022 PT Coag (PPP) [Time] 12.4 s 9.0-12.9 [facility] Laboratory - Hematology and Cell countsOrdered By: Rodolfo Harley on 08-05-2022 Nucleated RBC/100 WBC (Bld) [Ratio] 0.0 % 0-0.[address] [facility] Leukocytes [#/volume] in Blo od by Automated countOrdered By: Rodolfo Harley on 08-05-2022 WBC (Bld) [#/Vol] 3.4 10*3/uL 4.5-11.0 [facility] Lymphocytes Auto (Bld) [#/Vo l]Ordered By: Rodolfo Harley on 08-05-2022 Lymphocytes (Bld) [#/Vol] 0.9 10*3/uL 1.00-4.[address] [facility] Lymphocytes/100 WBC Auto (Bl d)Ordered By: Rodolfo Harley on 08-05-2022 Lymphocytes/100 WBC (Bld) 27.2 % . [facility] MCH Auto (RBC) [Entitic mass ]Ordered By: Rodolfo Harley on 08-05-2022 MCH (RBC) [Entitic mass] 28.4 pg 24.7-34.[address] [facility] MCHC Auto (RBC) [Mass/Vol]Or dered By: Rodolfo Harley on 08-05-2022 MCHC (RBC) [Mass/Vol] 33.1 g/dL 32.0-35.0 [facility] MCV Auto (RBC) [Entitic vol] Ordered By: Rodolfo Harley on 08-05-2022 MCV (RBC) [Entitic vol] 85.9 fL 80-[address] [facility] Monocytes Auto (Bld) [#/Vol] Ordered By: Rodolfo Harley on 08-05-2022 Monocytes (Bld) [#/Vol] 0.3 10*3/uL 0.0-0.[address] [facility] Monocytes/100 WBC Auto (Bld) Ordered By: Rodolfo Harley on 08-05-2022 Monocytes/100 WBC (Bld) 7.5 % . [facility] Neutrophils Auto (Bld) [#/Vo l]Ordered By: Rodolfo Harley on 08-05-2022 Neutrophils (Bld) [#/Vol] 2.0 10*3/uL 1.8-7.[address] [facility] Neutrophils/100 WBC Auto (Bl d)Ordered By: Rodolfo Harley on 08-05-2022 Neutrophils/100 WBC (Bld) 59.9 % . [facility] No Panel InformationOrdered By: Rodolfo Harley on 08-05-2022 Estimated GFR () > 60 mL/Min [facility] Comment on above: GFR estimated refere nce range: According to KDOQI guidelines, <60 ml/min/1.73m2 is sufficient to diagnose a patient with chronic kidney disease. Pharmacy Creatinine Clearance (Chem N/A [facility] Platelet mean volume Auto (B ld) [Entitic vol]Ordered By: Rodolfo Harley on 08-05-2022 Platelet mean volume (Bld) [Entitic vol] 8.1 fL 6.3-10.[address] [facility] Platelet poor plasma interna tional normalized ratio (INR) by coagulation assay (relatOrdered By: Rodolfo Harley on 08-05-2022 INR Coag (PPP) [Relative time] 1.1 {INR} [facility] Comment on above: INR Therapeutic Rang e [...] 08-05-2022 Platelets (Bld) [#/Vol] 243 10*3/uL 150-[address] [facility] Protein [Mass/volume] in Ser um or PlasmaOrdered By: Rodolfo Harley on 08-05-2022 Protein [Mass/Vol] 6.7 g/dL 6.1-7.9 [facility] RBC Auto (Bld) [#/Vol]Ordere d By: Rodolfo Harley on 08-05-2022 RBC (Bld) [#/Vol] 5.04 10*6/uL 3.60-5.00 [facility] Serum or plasma alanine snyder otransferase measurement without P-5'-P (enzymatic activiOrdered By: Rodolfo Harley on 08-05-2022 ALT No additional P-5'-P [Catalytic activity/Vol] 14 U/L 10-[address] [facility] Serum or plasma albumin/glob ulin mass ratioOrdered By: Rodolfo Harley on 08-05-2022 Albumin/Globulin [Mass ratio] 1.3 {ratio} [facility] Serum or plasma alkaline sruthi sphatase measurement (enzymatic activity/volume)Ordered By: Rodolfo Harley on 08-05-2022 ALP [Catalytic activity/Vol] 91 U/L 32-[address] [facility] Serum or plasma anion gap de terminationOrdered By: Rodolfo Harley on 08-05-2022 Anion gap [Moles/Vol] 14.3 mmol/L 6.0-15.0 [facility] Serum or plasma aspartate am inotransferase measurement (enzymatic activity/volume)Ordered By: Rodolfo Harley on 08-05-2022 AST [Catalytic activity/Vol] 21 U/L 10-[address] [facility] Serum or plasma calcium dagoberto urement (mass/volume)Ordered By: Rodolfo Harley on 08-05-2022 Calcium [Mass/Vol] 9.5 mg/dL 8.2-10.2 [facility] Serum or plasma chloride anahy surement (moles/volume)Ordered By: Rodolfo Harley on 08-05-2022 Chloride [Moles/Vol] 102 mmol/L 95-114 [facility] Serum or plasma glucose dagoberto urement (mass/volume)Ordered By: Rodolfo Harley on 08-05-2022 Glucose [Mass/Vol] 76 mg/dL 70-100 [facility] Comment on above: ADA recommended refe rence rangeRandom Glucose Reference Range is dependent on time and content of last meal. Glucose of more than 200 mg/dL in a nonstressed, ambulatory subject supports the diagnosis of Diabetes Mellitus. Serum or plasma potassium me asurement (moles/volume)Ordered By: Rodolfo Harley on 08-05-2022 Potassium [Moles/Vol] 3.8 mmol/L 3.5-5.1 [facility] Serum or plasma sodium measu rement (moles/volume)Ordered By: Rodolfo Harley on 08-05-2022 Sodium [Moles/Vol] 138 mmol/L 136-146 [facility] Serum or plasma total biliru bin measurement (mass/volume)Ordered By: Rodolfo Harley on 08-05-2022 Bilirubin [Mass/Vol] 0.7 mg/dL 0.3-1.2 [facility] Serum or plasma total carbon dioxide measurement (moles/volume)Ordered By: Rodolfo Harley on 08-05-2022 CO2 [Moles/Vol] 25.5 mmol/L 22.0-30.0 [facility] Serum or plasma urea nitroge n measurement (mass/volume)Ordered By: Rodolfo Harley on 08-05-2022 Urea nitrogen [Mass/Vol] 12 mg/dL - [facility] Urine culture routineOrdered By: Rodolfo Harley on 08-05-2022 Bacteria identified Cx Nom (U) [address] [facility] XR ANKLE LT MIN 3 Von 2021 XR ANKLE LT MIN 3 V Normal [facility] BNPon 07-06-2022 Natriuretic peptide B (Bld) [Mass/Vol] 843.0 pg/mL Normal <=900.0 [facility] Comment on above: Performed By: #### B [employer]MPER, CRP, CMP ####[facility] [address] [place] [address]Dr. Shahbaz Rogel CBC W MANUAL DIFFon 07-06-20 22 ATYPICAL LYMPH # Normal [facility] Comment on above: Performed By: #### C CAIN ####[facility] [address] [place] [id number]. Shahbaz Rogel ATYPICAL LYMPH % Normal [facility] Comment on above: Performed By: #### C BCBRICE ####[facility] [address] [place] [address]Dr. Shahbaz Rogel BAND # 0.0 103/ul Normal 0.0-0.3 [facility] Comment on above: Performed By: #### C CAIN ####[facility] [address] [place] [address]Dr. Shahbaz Rogel BAND % 0 % Normal 0-5 [facility] Comment on above: Performed By: #### C BCMAN ####[facility] [address] [place] [address]Dr. Shahbaz Rogel BASOM # 0.00 103/ul Normal 0.00-0.10 [facility] Comment on above: Performed By: #### C BCMAN ####[facility] [address] [place] [address]Dr. Shahbaz Rogel BASOM % 0.0 % Critically low 0.2-2.0 [facility] Comment on above: Performed By: #### C BCMAN ####[facility] [address] [place] [address]Dr. Shahbaz Rogel BLAST # Normal [facility] Comment on above: Performed By: #### C BCBRICE ####[facility] [address] [place], [place] [address]Dr. Shahbaz Rogel BLAST % Normal [facility] Comment on above: Performed By: #### C BCBRICE ####[facility] [address] [place], [place] [address]Dr. Shahbaz Rogel CORRECTED WBC Normal 4.0-11.0 [facility] Comment on above: Performed By: #### C BCMAN ####[facility] [address] [place], [place] [address]Dr. Shahbaz Rogel EOS # 0.00 103/ul Normal 0.00-0.70 [facility] Comment on above: Performed By: #### C BCBRICE ####[facility] Ggnvdigtkn[address] [place] [address]Dr. Shahbaz Rogel EOS% 0.0 % Critically low 0.9-7.0 [facility] Comment on above: Performed By: #### C BCMAN ####[facility] [address]uljnesa[address] [place], [place] [address]Dr. Shahbaz Rogel HCT 40.3 % Normal 36.0-48.0 [facility] Comment on above: Performed By: #### C BCBRICE ####[facility] Zsswzwqwbc9[address] [place], [place] [address]Dr. Shahbaz Rogel HGB 12.7 g/dl Normal 12.0-16.0 [facility] Comment on above: Performed By: #### C CAIN ####[facility] Avwdzdnvax1899 [place] [address]Dr. Shahbaz Rogel LYMPHM # 0.41 103/ul Critically low 1.20-3.80 [facility] Comment on above: Performed By: #### C CAIN ####[facility] Chjgsamjpz35[address] [place] [address]Dr. Shahbaz Rogel LYMPHM% 7.0 % Critically low 20.5-60.0 [facility] Comment on above: Performed By: #### Cheri BARLOW ####[facility] Rogufvsjsy1329 [place] [address]Dr. Shahbaz Rogel MCH 28.0 pg Normal 26.7-34.0 [facility] Comment on above: Performed By: #### Cheri BARLOW ####[facility] Pjvujyuevt[address] [place], [place] [address]Dr. Shahbaz Rogel MCHC 31.5 g/dl Normal 29.9-35.2 [facility] Comment on above: Performed By: #### Cheri BARLOW ####[facility] Ottjwzvftp69[address] [place] [address]Dr. Shahbaz Rogel MCV 89.0 fL Normal 81.0-99.0 [facility] Comment on above: Performed By: #### Cheri BARLOW ####[facility] Ibotymmwxo033[address] [place], [place] [address]Dr. Shahbaz Rogel METAMYELOCYTE # Normal [facility] Comment on above: Performed By: #### Cheri BARLOW ####[facility] Xuvppbjbbn85[address] [place] [address]Dr. Shahbaz Rogel METAMYELOCYTE % Normal [facility] Comment on above: Performed By: #### C CAIN ####[facility] Cwistphzvr4[address] [place] [address]Dr. Shahbaz Rogel MONOM# 0.00 103/ul Critically low 0.30-0.80 [facility] Comment on above: Performed By: #### C CAIN ####[facility] Bglyjugkzl97[address] [place] [id number]. Shahbaz Rogel MONOM% 0.0 % Critically low 1.7-12.0 [facility] Comment on above: Performed By: #### C CAIN ####[facility] Hmqerwxjha9354 [place] [id number]. Shahbaz Rogel MPV 9.8 fL Normal 9.5-13.5 [facility] Comment on above: Performed By: #### C CAIN ####[facility] Gdnvqsronl6564 [place] [phone]. Shahbaz Rogel MYELOCYTE # Normal [facility] Comment on above: Performed By: #### C CAIN ####[facility] Dkjsjpykqe8311 [place] [phone]. Shahbaz Rogel MYELOCYTE % Normal [facility] Comment on above: Performed By: #### Cheri BARLOW ####[facility] Tryzquegbm[address] [place], [place] [address]Dr. Shahbaz Rogel NRBC Normal [facility] Comment on above: Performed By: #### C CAIN ####[facility] Rhjfruqkri8232 [place] [phone]. Shahbaz Rogel PLT 187 103/ul Normal 150-450 [facility] Comment on above: Performed By: #### C CAIN ####[facility] Qvtprfmtvb0528 [place] [phone]. Shahbaz Rogel RBC 4.53 106/ul Normal 4.20-5.40 [facility] Comment on above: Performed By: #### C CAIN ####[facility] Atcujuzqwl4705 [place] [phone]. Shahbaz Rogel RDW 13.3 % Normal 11.0-15.0 [facility] Comment on above: Performed By: #### C CAIN ####[facility] Vmyqrkmzwc9694 [place] [phone]. Shahbaz Rogel SEG # 5.49 103/ul Normal 1.40-6.50 [facility] Comment on above: Performed By: #### C CAIN ####[facility] Tyskqhejai29[address] [place] [address]Dr. Shahbaz Rogel SEG % 93.0 % Critically high 43.0-75.0 [facility] Comment on above: Performed By: #### C CAIN ####[facility] Vcmgkfzxqq4289 [place] [address]Dr. Shahbaz Rogel WBC 5.9 103/ul Normal 4.0-11.0 [facility] Comment on above: Performed By: #### C CAIN ####[facility] Kwkzrwxpvs1819 [place] [address]Dr. Shahbaz Rogel CRPon 07-06-2022 CRP [Mass/Vol] mg/L Normal <=1.0 [facility] Comment on above: Performed By: #### B [employer]ER, CRP, CMP ####[facility] Klfbrihuur99[address] [place], [place] [address]Dr. Shahbaz Rogel PROF 14(COMP METB)on 022 Albumin [Mass/Vol] 3.4 g/dL Normal 3.4-5.0 [facility] Comment on above: Performed By: #### B [employer], CRP, CMP ####[facility] Hqqhcuvpxy525[address] [place], [place] [address]Dr. Shahbaz Rogel Albumin/Globulin [Mass ratio] 1.0 {ratio} Normal [facility] Comment on above: Performed By: #### B [employer], CRP, CMP ####[facility] Xakcumqffh6[address] [place], [place] [address]Dr. Shahbaz Rogel ALP [Catalytic activity/Vol] 92 U/L Normal 46-116 [facility] Comment on above: Performed By: #### B [employer], CRP, CMP ####[facility] Olyoajqwio29[address] [place], [place] [address]Dr. Shahbaz Rogel ALT [Catalytic activity/Vol] 21 U/L Normal 14-59 [facility] Comment on above: Performed By: #### B [employer], CRP, CMP ####[facility] Egalnrsvcs2866[address] [place], [place] [address]Dr. Shahbaz Rogel Anion gap [Moles/Vol] 13.4 mmol/L Normal [facility] Comment on above: Performed By: #### B [employer], CRP, CMP ####[facility] Jfwdyvcpwx744[address] [place], [place] [address]Dr. Shahbaz Rogel AST [Catalytic activity/Vol] 16 U/L Normal 15-37 [facility] Comment on above: Performed By: #### B [employer], CRP, CMP ####[facility] Tcixkuewih32[address] [place], [place] [address]Dr. Shahbaz Rogel Bilirubin [Mass/Vol] 0.2 mg/dL Normal 0.2-1.0 [facility] Comment on above: Performed By: #### B [employer], CRP, CMP ####[facility] Exoitbzddz8136[address] [place], [place] [address]Dr. Shahbaz Rogel Calcium [Mass/Vol] 9.3 mg/dL Normal 8.5-10.1 [facility] Comment on above: Performed By: #### B [employer], CRP, CMP ####[facility] Wvvfizxdfu7035[address] [place], [place] [address]Dr. Shahbaz Rogel Chloride [Moles/Vol] 105 mmol/L Normal 98-107 [facility] Comment on above: Performed By: #### B [employer], CRP, CMP ####[facility] Skrmkpcnvs36[address] [place], [place] [address]Dr. Shahbaz Rogel CO2 [Moles/Vol] 23.2 mmol/L Normal 21.0-32.0 [facility] Comment on above: Performed By: #### B [employer], CRP, CMP ####[facility] Egbsfywoqd6417[address] [place], [place] [address]Dr. Shahbaz Rogel Creatinine [Mass/Vol] 1.23 mg/dL Critically high 0.55-1.02 [facility] Comment on above: Performed By: #### B [employer], CRP, CMP ####[facility] Mobpsysbhd5625[address] [place], [place] [address]Dr. Shahbaz Rogel EGFR-AF SERBIAN 55 mL/min/1.73m2 Critically low >=60 [facility] Comment on above: Performed By: #### B [employer], CRP, CMP ####[facility] Ihefjssgom4307 [place] [address]Dr. Shahbaz Rogel EGFR-NON AF SERBIAN 45 mL/min/1.73m2 Critically low >=60 [facility] Comment on above: Performed By: #### B [employer], CRP, CMP ####[facility] Nqnrweioaz0113 [place] [address]Dr. Shahbaz Rogel Globulin (S) [Mass/Vol] 3.3 g/dL Normal [facility] Comment on above: Performed By: #### B [employer], CRP, CMP ####[facility] Qklsowzcvh1515 [place] [address]Dr. Shahbaz Rogel Glucose [Mass/Vol] 171 mg/dL Critically high 74-106 [facility] Comment on above: Performed By: #### B [employer], CRP, CMP ####[facility] Jteoocresn3102 [place] [address]Dr. Shahbaz Rogel Potassium [Moles/Vol] 3.6 mmol/L Normal 3.5-5.1 [facility] Comment on above: Performed By: #### B [employer], CRP, CMP ####[facility] Ppuonzezat[address] [place], [place] [address]Dr. Shahbaz Rogel Protein [Mass/Vol] 6.7 g/dL Normal 6.4-8.2 [facility] Comment on above: Performed By: #### B [employer], CRP, CMP ####[facility] Avfuuqkieg4461 [place] [address]Dr. Shahbaz Rogel Sodium [Moles/Vol] 138 mmol/L Normal 136-145 [facility] Comment on above: Performed By: #### B [employer], CRP, CMP ####[facility] Nxsyeuspiq2528 [place] [address]Dr. Shahbaz Rogel Urea nitrogen [Mass/Vol] 21.0 mg/dL Critically high 7.0-18.0 [facility] Comment on above: Performed By: #### B [employer], CRP, CMP ####[facility] Oexouxfcdb2627 [place] [address]Dr. Shahbaz Rogel Urea nitrogen/Creatinine [Mass ratio] 17.1 mg/mg Normal [facility] Comment on above: Performed By: #### B [employer], CRP, CMP ####[facility] Ofnzeosfqr1035 [place] [address]Dr. Shahbaz Rogel XR CHEST 2 Von 07-06-2022 XR CHEST 2 V Normal [facility] BNPon 07-05-2022 Natriuretic peptide B (Bld) [Mass/Vol] 83.0 pg/mL Normal <=900.0 [facility] Comment on above: Performed By: #### C RP, CMP, BNP ####[facility] Czdchqpahe8[address] [place], [place] [address]Dr. Shahbaz Rogel CBC AUTO DIFFon 07-05-2022 BASO # 0.0 103/ul Normal 0.0-0.1 [facility] Comment on above: Performed By: #### C BC ####[facility] Bnjtizkifd0200[address] [place], [place] [address]Dr. Shahbaz Rogel Basophils/100 WBC (Bld) 0.4 % Normal 0.2-2.0 [facility] Comment on above: Performed By: #### C BC ####[facility] Fpulyjzgvn450[address] [place], [place] [address]Dr. Shahbaz Rogel EO # 0.1 103/ul Normal 0.0-0.7 [facility] Comment on above: Performed By: #### C BC ####[facility] Bbbknqtnii6[address] [place], [place] [address]Dr. Shahbaz Rogel Eosinophils/100 WBC (Bld) 2.9 % Normal 0.9-7.0 [facility] Comment on above: Performed By: #### C BC ####[facility] Kemmobkdpl280[address] [place], [place] [address]Dr. Shahbaz Rogel Erythrocyte distribution width (RBC) [Ratio] 13.4 % Normal 11.0-15.0 [facility] Comment on above: Performed By: #### C BC ####[facility] Svymxzgjpc07[address] [place], [place] [address]Dr. Shahbaz Rogel Hematocrit (Bld) [Volume fraction] 41.7 % Normal 36.0-48.0 [facility] Comment on above: Performed By: #### C BC ####[facility] Mjxwrerpbk5623 [place] [phone]. Shahbaz Rogel Hemoglobin (Bld) [Mass/Vol] 12.9 g/dL Normal 12.0-16.0 [facility] Comment on above: Performed By: #### C BC ####[facility] Tcnxrrfbdf9325 [place] [phone]. Shahbaz Rogel IG # 0.00 10e3/ul Normal 0.00-0.03 [facility] Comment on above: Performed By: #### C BC ####[facility] Vuzilzkfai9270 [place] [address]Dr. Shahbaz Rogel IG % 0.0 % Normal 0.0-0.5 [facility] Comment on above: Performed By: #### C BC ####[facility] F[address]icowjyth05[address] [place], [place] [address]Dr. Shahbaz Rogel LYMPH # 1.5 103/ul Normal 1.2-3.8 [facility] Comment on above: Performed By: #### C BC ####[facility] Lumbrelacr6477 [place] [address]Dr. Shahbaz Rogel Lymphocytes/100 WBC (Bld) 32.9 % Normal 20.5-60.0 [facility] Comment on above: Performed By: #### C BC ####[facility] Ydyopjrtio4849 [place] [address]Dr. Shahbaz Rogel MANUAL DIFF REQ NO Normal [facility] Comment on above: Performed By: #### C BC ####[facility] Laeglseskl7697 [place] [phone]. Shahbaz Rogel MCH (RBC) [Entitic mass] 28.0 pg Normal 26.7-34.0 [facility] Comment on above: Performed By: #### C BC ####[facility] Tyobhjflos8544 [place] [phone]. Shahbaz Juan F MCHC (RBC) [Mass/Vol] 30.9 g/dL Normal 29.9-35.2 [facility] Comment on above: Performed By: #### C BC ####[facility] Xzzpikrcaf9651 [place] [phone]. Shahbaz Rogel MCV (RBC) [Entitic vol] 90.5 fL Normal 81.0-99.0 [facility] Comment on above: Performed By: #### C BC ####[facility] Cxncdkmctt3112 [place] [phone]. Shahbaz Rogel MONO # 0.4 103/ul Normal 0.3-0.8 [facility] Comment on above: Performed By: #### C BC ####[facility] Nmmsouznmc8705 [place] [phone]. Shahbaz Juan F Monocytes/100 WBC (Bld) 8.0 % Normal 1.7-12.0 [facility] Comment on above: Performed By: #### C BC ####[facility] Xodtyfbbpa[address] [place], [place] [address]Dr. Shahbaz Rogel NEUT # 2.5 103/ul Normal 1.4-6.5 [facility] Comment on above: Performed By: #### C BC ####[facility] Phoxwygxsb[address] [place], [place] [address]Dr. Shahbaz Juan F Neutrophils/100 WBC (Bld) 55.8 % Normal 43.0-75.0 [facility] Comment on above: Performed By: #### C BC ####[facility] Fwougidggm[address] [place], [place] [address]Dr. Shahbaz Juan F Platelet mean volume (Bld) [Entitic vol] 9.7 fL Normal 9.5-13.5 [facility] Comment on above: Performed By: #### C BC ####[facility] Iwyeccrddk72[address] [place], [place] [address]Dr. Shahbaz Juan F PLT 158 103/ul Normal 150-450 [facility] Comment on above: Performed By: #### C BC ####[facility] Gdcndvcafm4555 [place] [phone]. Shahbaz Rogel RBC 4.61 106/ul Normal 4.20-5.40 [facility] Comment on above: Performed By: #### C BC ####[facility] Svvjhelayw1103 [place] [address]Dr. Lilajarrod Juan F WBC 4.5 103/ul Normal 4.0-11.0 [facility] Comment on above: Performed By: #### C BC ####[facility] Swhjdkoitt6681 [place] [address]Dr. Lilajarrod Rogel CRPon 07-05-2022 CRP [Mass/Vol] mg/L Normal <=1.0 [facility] Comment on above: Performed By: #### C RP, CMP, BNP ####[facility] Affxemcnbm0689 [place] [address]Dr. Shahbaz Rogel ECHO LIMITED STUDYon ECHO LIMITED STUDY Normal [facility] PROF 14(COMP METB)on Albumin [Mass/Vol] 3.2 g/dL Critically low 3.4-5.0 [facility] Comment on above: Performed By: #### C RP, CMP, BNP ####[facility] Rdijitwmnh2098 [place] [address]Dr. Shahbaz Rogel Albumin/Globulin [Mass ratio] 1.0 {ratio} Normal [facility] Comment on above: Performed By: #### C RP, CMP, BNP ####[facility] Obcaooohdw0668 [place] [address]Dr. Shahbaz Rogel ALP [Catalytic activity/Vol] 88 U/L Normal 46-116 [facility] Comment on above: Performed By: #### C RP, CMP, BNP ####[facility] Gebsvgefxx9383 [place] [address]Dr. Shahbaz Rogel ALT [Catalytic activity/Vol] 17 U/L Normal 14-59 [facility] Comment on above: Performed By: #### C RP, CMP, BNP ####[facility] Pybbsfqcjf6287 [place] [address]Dr. Shahbaz Rogel Anion gap [Moles/Vol] 12.5 mmol/L Normal [facility] Comment on above: Performed By: #### C RP, CMP, BNP ####[facility] Inlhsxrmnm4[address] [place], [place] [address]Dr. Shahbaz Rogel AST [Catalytic activity/Vol] 18 U/L Normal 15-37 [facility] Comment on above: Performed By: #### C RP, CMP, BNP ####[facility] Ekcqrkvcvw60[address] [place], [place] [address]Dr. Shahbaz Rogel Bilirubin [Mass/Vol] 0.3 mg/dL Normal 0.2-1.0 [facility] Comment on above: Performed By: #### C RP, CMP, BNP ####[facility] Bordekoxlo13[address] [place], [place] [address]Dr. Shahbaz Rogel Calcium [Mass/Vol] 8.9 mg/dL Normal 8.5-10.1 [facility] Comment on above: Performed By: #### C RP, CMP, BNP ####[facility] Hagfnvzzgk5[address] [place], [place] [address]Dr. Shahbaz Rogel Chloride [Moles/Vol] 103 mmol/L Normal 98-107 [facility] Comment on above: Performed By: #### C RP, CMP, BNP ####[facility] Hweasispaj77[address] [place], [place] [address]Dr. Shahbaz Rogel CO2 [Moles/Vol] 28.1 mmol/L Normal 21.0-32.0 [facility] Comment on above: Performed By: #### C RP, CMP, BNP ####[facility] Qqyylidaak64[address] [place], [place] [address]Dr. Shahbaz Rogel Creatinine [Mass/Vol] 1.24 mg/dL Critically high 0.55-1.02 [facility] Comment on above: Performed By: #### C RP, CMP, BNP ####[facility] Edglrsjcns15[address] [place], [place] [address]Dr. Shahbaz Rogel EGFR-AF SERBIAN 54 mL/min/1.73m2 Critically low >=60 [facility] Comment on above: Performed By: #### C RP, CMP, BNP ####[facility] Ruqeepfjgn0[address] [place], [place] [address]Dr. Shahbaz Rogel EGFR-NON AF SERBIAN 45 mL/min/1.73m2 Critically low >=60 [facility] Comment on above: Performed By: #### C RP, CMP, BNP ####[facility] Gvnqgeftdc3472 [place] [address]Dr. Shahbaz Rogel Globulin (S) [Mass/Vol] 3.1 g/dL Normal [facility] Comment on above: Performed By: #### C RP, CMP, BNP ####[facility] Xscpjzstqr4960 [place] [address]Dr. Shahbaz Rogel Glucose [Mass/Vol] 115 mg/dL Critically high 74-106 T [facility] Comment on above: Performed By: #### C RP, CMP, BNP ####[facility] Ywhbmqlhsr1306 [place] [address]Dr. Shahbaz Rogel Potassium [Moles/Vol] 3.6 mmol/L Normal 3.5-5.1 [facility] Comment on above: Performed By: #### C RP, CMP, BNP ####[facility] Mtrhjrixuc[address] [place], [place] [address]Dr. Shahbaz Rogel Protein [Mass/Vol] 6.3 g/dL Critically low 6.4-8.2 [facility] Comment on above: Performed By: #### C RP, CMP, BNP ####[facility] [address]jxz[address] [place] [address]. Shahbaz Rogel Sodium [Moles/Vol] 140 mmol/L Normal 136-145 [facility] Comment on above: Performed By: #### C RP, CMP, BNP ####[facility] Rkwbeggvpd7377 [place] [address]Dr. Shahbaz Rogel Urea nitrogen [Mass/Vol] 18.0 mg/dL Normal 7.0-18.0 [facility] Comment on above: Performed By: #### C RP, CMP, BNP ####[facility] Jhddmlwszo2766 [place] [address]Dr. Shahbaz Rogel Urea nitrogen/Creatinine [Mass ratio] 14.5 mg/mg Normal [facility] Comment on above: Performed By: #### C RP, CMP, BNP ####[facility] [address]bxovmg[address] [place] [address]. Shahbaz Rogel T3, TOTAL (TRIIODOTHYRONINE) on 07-05-2022 T3, TOTAL 95 ng/dL Normal 71-180 [facility] Comment on above: Performed By: #### T 3TOTAL ####[facility] Seatsapqvs5261 [place] [address]Dr. Shahbaz Rogel CARDIAC ROSALINA 3-6on 2 CK [Catalytic activity/Vol] 78 U/L Normal 26-192 [facility] Comment on above: Performed By: #### C MREP ####[facility] Glpopobspy2251 [place] [id number]. Shahbaz Rogel CK.MB [Mass/Vol] 1.44 ng/mL Normal <=3.60 [facility] Comment on above: Performed By: #### C MREP ####[facility] Yvitnkfrax16[address] [place], [place] [address]Dr. Shahbaz Rogel HSTROP 9.0 pg/mL Normal 4.0-51.3 [facility] Comment on above: Result Comment: CUT- OFF POINTS HAVE BEEN ESTABLISHED BASED ON THE FOURTH UNIVERSAL DEFINITIONS OF MYOCARDIALINFARCTION. THE UPPER REFERENCE LIMIT (URL) OF TROPONIN, DEFINED THE 99TH PERCENTILE OFcTnI DISTRIBUTION IN A REFERENCE POPULATION, HAS BEEN CONFIRMED THE DECISION THRESHOLDFOR ME DIAGNOSIS. Performed By: #### C MREP ####[facility] Raytzctiqd0789 [place] [address]Dr. Shahbaz Rogel CK [Catalytic activity/Vol] 88 U/L Normal 26-192 [facility] Comment on above: Performed By: #### C MREP ####[facility] Xuvapjoyaz3102 [place] [id number]. Shahbaz Rogel CK.MB [Mass/Vol] 1.38 ng/mL Normal <=3.60 [facility] Comment on above: Performed By: #### C MREP ####[facility] Insxkhdjrw[address] [place], [place] [address]Dr. Shahbaz Rogel HSTROP 7.0 pg/mL Normal 4.0-51.3 [facility] Comment on above: Result Comment: CUT- OFF POINTS HAVE BEEN ESTABLISHED BASED ON THE FOURTH UNIVERSAL DEFINITIONS OF MYOCARDIALINFARCTION. THE UPPER REFERENCE LIMIT (URL) OF TROPONIN, DEFINED THE 99TH PERCENTILE OFcTnI DISTRIBUTION IN A REFERENCE POPULATION, HAS BEEN CONFIRMED THE DECISION THRESHOLDFOR ME DIAGNOSIS. Performed By: #### C MREP ####[facility] Bbkrzpndeh3953 [place] [phone]. Shahbaz Rogel CARDIAC ROSALINA ADMITon 022 CK [Catalytic activity/Vol] 87 U/L Normal 26-192 [facility] Comment on above: Performed By: #### C JACKSON, CMADM ####[facility] Nuvujtifdc7268 [place] [address]Dr. Shahbaz Rogel CK.MB [Mass/Vol] 1.80 ng/mL Normal <=3.60 [facility] Comment on above: Performed By: #### C JACKSON, CMADM ####[facility] Oznhptxzri15[address] [place], [place] [address]Dr. Shahbaz Rogel HSTROP 7.6 pg/mL Normal 4.0-51.3 [facility] Comment on above: Result Comment: CUT- OFF POINTS HAVE BEEN ESTABLISHED BASED ON THE FOURTH UNIVERSAL DEFINITIONS OF MYOCARDIALINFARCTION. THE UPPER REFERENCE LIMIT (URL) OF TROPONIN, DEFINED THE 99TH PERCENTILE OFcTnI DISTRIBUTION IN A REFERENCE POPULATION, HAS BEEN CONFIRMED THE DECISION THRESHOLDFOR ME DIAGNOSIS. Performed By: #### C JACKSON, CMADM ####[facility] Cgeavxmggx9677 [place] [address]Dr. Shahbaz Rogel LEN 67 ng/mL Normal 9-82 [facility] Comment on above: Performed By: #### C JACKSON, CMADM ####[facility] Shbqdisjth5201 [place] [phone]. Shahbaz Rogel CBC AUTO DIFFon 07-04-2022 BASO # 0.0 103/ul Normal 0.0-0.1 [facility] Comment on above: Performed By: #### C BC ####[facility] Froydzoads3245 [place] [address]Dr. Shahbaz Rogel Basophils/100 WBC (Bld) 0.7 % Normal 0.2-2.0 [facility] Comment on above: Performed By: #### C BC ####[facility] Wbqohgedtq7360 [place] [id number]. Shahbaz Rogel EO # 0.1 103/ul Normal 0.0-0.7 [facility] Comment on above: Performed By: #### C BC ####[facility] Nmoyggjgal3478 [place] [address]Dr. Shahbaz Rogel Eosinophils/100 WBC (Bld) 3.4 % Normal 0.9-7.0 [facility] Comment on above: Performed By: #### C BC ####[facility] Wubkbhiqpb[address] [place], [place] [address]Dr. Shahbaz Rogel Erythrocyte distribution width (RBC) [Ratio] 13.3 % Normal 11.0-15.0 [facility] Comment on above: Performed By: #### C BC ####[facility] [address]msjzcxoe[address] [place], [place] [address]Dr. Shahbaz Rogel Hematocrit (Bld) [Volume fraction] 42.1 % Normal 36.0-48.0 [facility] Comment on above: Performed By: #### C BC ####[facility] Eqipmsfyqv16[address] [place], [place] [address]Dr. Shahbaz Rogel Hemoglobin (Bld) [Mass/Vol] 13.3 g/dL Normal 12.0-16.0 [facility] Comment on above: Performed By: #### C BC ####[facility] Zqwsnunbcv[address] [place], [place] [address]Dr. Shahbaz Rogel IG # 0.01 10e3/ul Normal 0.00-0.03 [facility] Comment on above: Performed By: #### C BC ####[facility] Fpdjoqhbzn[address] [place], [place] [address]Dr. Shahbaz Rogel IG % 0.3 % Normal 0.0-0.5 [facility] Comment on above: Performed By: #### C BC ####[facility] [address]plkpxf[address] [place], [place] [address]Dr. Lilajarrod Rogel LYMPH # 1.0 103/ul Critically low 1.2-3.8 [facility] Comment on above: Performed By: #### C BC ####[facility] Xofiwsrwrc1198 [place] [id number]. Lilajarrod Rogel Lymphocytes/100 WBC (Bld) 35.6 % Normal 20.5-60.0 [facility] Comment on above: Performed By: #### C BC ####[facility] Vpdvpxhjkt8319 [place] [phone]. Shahbaz Rogel MANUAL DIFF REQ NO Normal [facility] Comment on above: Performed By: #### C BC ####[facility] Nqufnummzz3981 [place] [phone]. Shahbaz Rogel MCH (RBC) [Entitic mass] 27.9 pg Normal 26.7-34.0 [facility] Comment on above: Performed By: #### C BC ####[facility] Awrgtshcpu[address] [place], [place] [address]Dr. Shahbaz Rogel MCHC (RBC) [Mass/Vol] 31.6 g/dL Normal 29.9-35.2 [facility] Comment on above: Performed By: #### C BC ####[facility] Rswqyemnej[address] [place], [place] [address]Dr. Shahbaz Rogel MCV (RBC) [Entitic vol] 88.3 fL Normal 81.0-99.0 [facility] Comment on above: Performed By: #### C BC ####[facility] Xvvoaojpef[address] [place], [place] [address]Dr. Shahbaz Rogel MONO # 0.2 103/ul Critically low 0.3-0.8 [facility] Comment on above: Performed By: #### C BC ####[facility] Adkrwdslda65[address] [place], [place] [address]Dr. Shahbaz Rogel Monocytes/100 WBC (Bld) 7.9 % Normal 1.7-12.0 [facility] Comment on above: Performed By: #### C BC ####[facility] Yzdikzfqbl[address] [place], [place] [address]Dr. Shahbaz Rogel NEUT # 1.5 103/ul Normal 1.4-6.5 [facility] Comment on above: Performed By: #### C BC ####[facility] Cqdhpnygsf0[address] [place] [address]Dr. Shahbaz Rogel Neutrophils/100 WBC (Bld) 52.1 % Normal 43.0-75.0 [facility] Comment on above: Performed By: #### C BC ####[facility] Osfxuslybv11[address] [place], [place] [address]Dr. Shahbaz Rogel Platelet mean volume (Bld) [Entitic vol] 9.5 fL Normal 9.5-13.5 [facility] Comment on above: Performed By: #### C BC ####[facility] Lvjfqnbgwz[address] [place], [place] [address]Dr. Shahbaz Rogel PLT 172 103/ul Normal 150-450 [facility] Comment on above: Performed By: #### C BC ####[facility] Ofoteuvruo2923[address] [place], [place] [address]Dr. Shahbaz Rogel RBC 4.77 106/ul Normal 4.20-5.40 [facility] Comment on above: Performed By: #### C BC ####[facility] Zxhloylrnh54[address] [place], [place] [address]Dr. Shahbaz Rogel WBC 2.9 103/ul Critically low 4.0-11.0 [facility] Comment on above: Performed By: #### C BC ####[facility] Adwpaltsur4[address] [place], [place] [address]Dr. Shahbaz Rogel CELL COUNT BODY FLUIDon 10-0 BASOS Normal [facility] Comment on above: Performed By: #### B FCC ####[facility] Bkegrjamwq6008[address] [place], [place] [address]Dr. Shahbaz Rogel Eosinophils/100 WBC (Bld) 4 % Normal [facility] Comment on above: Performed By: #### B FCC ####[facility] Fpiksezzks2764[address] [place], [place] [address]Dr. Shahbaz Rogel Lymphocytes/100 WBC (Bld) 12 % Normal [facility] Comment on above: Performed By: #### B FCC ####[facility] Tavdfqdsst[address] [place], [place] [address]Dr. Shahbaz Rogel Monocytes/100 WBC (Bld) 4 % Normal [facility] Comment on above: Performed By: #### B FCC ####[facility] Enpbkrgdww2766 [place] [id number]. Shahbaz Rogel RBC 67 cubic mm Normal [facility] Comment on above: Performed By: #### B FCC ####[facility] Lcaotazwzg6128 [place] [address]Dr. Shahbaz Rogel SEGS 80 % Normal [facility] Comment on above: Performed By: #### B FCC ####[facility] Qebikarqml224[address] [place], [place] [address]Dr. Shahbaz Rogel WBC BODY FLUID 223 cubic mm Normal [facility] Comment on above: Performed By: #### B FCC ####[facility] Xrktewukmf6[address] [place], [place] [address]Dr. Shahbaz Rogel CULTURE OTHERon 07-04-2022 CULTURE OTHER Culture Observations : NO GROWTH AT 48 HOURS. Normal [facility] Comment on above: Performed By: #### O THCX ####[facility] Qzylkgnwgt40[address] [place], [place] [address]Dr. Shahbaz Rogel CYTOLOGYon 07-04-2022 SENT TO REF LAB 07/04/22 Normal [facility] Comment on above: Performed By: #### C YTO ####[facility] Focsynncnw8455[address] [place], [place] [address]Dr. Shahbaz Rogel Covid-19 PCR (CVDTB)on SARS-CoV-2 (COVID-19) RNA PAVAN+probe Ql (Unsp spec) Not detected Normal NOT DETECTED [facility] Comment on above: Result Comment: When [...] for this test is supported by the [place] of Health and Human Service's declaration that [...] be used). Performed By: #### C VDTBH ####[facility] Dgfizitomp5567 [place] [address]Dr. Shahbaz Rogel GRAM STAINon 07-04-2022 COMMENTS NO ORGANISMS OBSERVED Normal [facility] Comment on above: Performed By: #### G STAIN ####[facility] Wearwmizgw7627[address] [place], [place] [address]Dr. Lilajarrod Juan F DIPHTHEROIDS Normal [facility] Comment on above: Performed By: #### G STAIN ####[facility] Qfyfwhijoy[address] [place], [place] [address]Dr. Shahbaz Rogel EPITHELIALS Normal [facility] Comment on above: Performed By: #### G STAIN ####[facility] Qmpvoctyrk88[address] [place], [place] [address]Dr. Shahbaz Rogel FUNGAL ELEMENTS Normal [facility] Comment on above: Performed By: #### G STAIN ####[facility] Bisszsakpg7388[address] [place], [place] [address]Dr. Shahbaz Rogel GRAM NEG BACILLI Normal [facility] Comment on above: Performed By: #### G STAIN ####[facility] Lqadgrlsay7534[address] [place], [place] [address]Dr. Shahbaz Rogel GRAM NEG DIPPLOCOCCI Normal [facility] Comment on above: Performed By: #### G STAIN ####[facility] Lfppmdnbjw2157[address] [place], [place] [address]Dr. Shahbaz Rogel GRAM POS BACILLI Normal [facility] Comment on above: Performed By: #### G STAIN ####[facility] Jkfglcqvmp[address] [place], [place] [address]Dr. Shahbaz Rogel GRAM POSITIVE COCCI Normal [facility] Comment on above: Performed By: #### G STAIN ####[facility] Gwklhwszuk1776 [place] [address]Dr. Shahbaz Rogel GRAM STAIN SOURCE Rt Lower Lobe Bronch ial Washing Normal [facility] Comment on above: Performed By: #### G STAIN ####[facility] Suauazhjvm0220 [place] [address]Dr. Shahbaz Rogel GS_DIPTH Normal [facility] Comment on above: Performed By: #### G STAIN ####[facility] Qutxfgsrmo9960 [place] [address]Dr. Shahbaz Rogel WBC RARE Normal [facility] Comment on above: Performed By: #### G STAIN ####[facility] Akclfhkglr1224 [place] [address]Dr. Shahbaz Rogel PROF 14(COMP METB)on 022 Albumin [Mass/Vol] 3.6 g/dL Normal 3.4-5.0 [facility] Comment on above: Performed By: #### C CINDY PAZ ####[facility] Lbzaceggmh350[address] [place], [place] [address]Dr. Shahbaz Rogel Albumin/Globulin [Mass ratio] 1.1 {ratio} Normal [facility] Comment on above: Performed By: #### C CINDY PAZ ####[facility] Nfwwxwrbsb59[address] [place], [place] [address]Dr. Shahbaz Rogel ALP [Catalytic activity/Vol] 102 U/L Normal 46-116 [facility] Comment on above: Performed By: #### C CINDY PAZ ####[facility] Wdhpunxgic6812 [place] [address]Dr. Shahbaz Rogel ALT [Catalytic activity/Vol] 19 U/L Normal 14-59 [facility] Comment on above: Performed By: #### C CINDY PAZ ####[facility] Pazmfsohxh8[address] [place], [place] [address]Dr. Shahbaz Rogel Anion gap [Moles/Vol] 9.5 mmol/L Normal [facility] Comment on above: Performed By: #### C CINDY PAZ ####[facility] Ngxatjjfbg6258[address] [place], [place] [address]Dr. Shahbaz Rogel AST [Catalytic activity/Vol] 19 U/L Normal 15-37 [facility] Comment on above: Performed By: #### C CINDY PAZ ####[facility] Sooasktjcy6522 [place] [address]Dr. Shahbaz Rogel Bilirubin [Mass/Vol] 0.3 mg/dL Normal 0.2-1.0 [facility] Comment on above: Performed By: #### C JACKSON, CINDY ####[facility] Lofnjmkotd4295 [place] [address]Dr. Shahbaz Rogel Calcium [Mass/Vol] 8.8 mg/dL Normal 8.5-10.1 [facility] Comment on above: Performed By: #### C CINDY PAZ ####[facility] Ptbetstbvo3793[address] [place], [place] [address]Dr. Shahbaz Rogel Chloride [Moles/Vol] 107 mmol/L Normal 98-107 [facility] Comment on above: Performed By: #### C CINDY PAZ ####[facility] Glevylvzrh5225[address] [place], [place] [address]Dr. Shahbaz Rogel CO2 [Moles/Vol] 29.5 mmol/L Normal 21.0-32.0 [facility] Comment on above: Performed By: #### C CINDY PAZ ####[facility] Xttglymzcb4843[address] [place], [place] [address]Dr. Shahbaz Rogel Creatinine [Mass/Vol] 0.97 mg/dL Normal 0.55-1.02 [facility] Comment on above: Performed By: #### C CINDY PAZ ####[facility] Omiruzvlof9564[address] [place], [place] [address]Dr. Shahbaz Rogel EGFR-AF SERBIAN >60 Normal >=60 [facility] Comment on above: Performed By: #### C CINDY PAZ ####[facility] Tkfcgtynqs64[address] [place], [place] [address]Dr. Shahbaz Rogel EGFR-NON AF SERBIAN 59 mL/min/1.73m2 Critically low >=60 [facility] Comment on above: Performed By: #### C CINDY PAZ ####[facility] Ewaycwgqtg3764 [place] [phone]. Shahbaz Rogel Globulin (S) [Mass/Vol] 3.2 g/dL Normal [facility] Comment on above: Performed By: #### C JACKSON, CINDY ####[facility] Lmniwixcvh5470 [place] [address]Dr. Shahbaz Rogel Glucose [Mass/Vol] 89 mg/dL Normal 74-106 [facility] Comment on above: Performed By: #### C JACKSON, CINDY ####[facility] Myuoxgzrww0697 [place] [address]Dr. Shahbaz Rogel Potassium [Moles/Vol] 4.0 mmol/L Normal 3.5-5.1 [facility] Comment on above: Performed By: #### C JACKSON, CINDY ####[facility] Svebhiasyi5396 [place] [address]Dr. Shahbaz Rogel Protein [Mass/Vol] 6.8 g/dL Normal 6.4-8.2 [facility] Comment on above: Performed By: #### C JACKSON, CINDY ####[facility] Srjmumwjrk6337 [place] [address]Dr. Shahbaz Rogel Sodium [Moles/Vol] 142 mmol/L Normal 136-145 [facility] Comment on above: Performed By: #### C JACKSON, CINDY ####[facility] Fizekzbavc3714 [place] [address]Dr. Shahbaz Rogel Urea nitrogen [Mass/Vol] 11.0 mg/dL Normal 7.0-18.0 [facility] Comment on above: Performed By: #### C JACKSON, CINDY ####[facility] Ohopugefin7802 [place] [address]Dr. Shahbaz Rogel Urea nitrogen/Creatinine [Mass ratio] 11.3 mg/mg Normal [facility] Comment on above: Performed By: #### C JACKSON, CMADM ####[facility] Fbfrdekaxs[address] [place], [place] [address]Dr. Shahbaz Rogel T4on 07-04-2022 T4 [Mass/Vol] 4.70 ug/dL Critically low 4.80-13.90 [facility] Comment on above: Performed By: #### T SH, T4 ####[facility] Hfxbysrwrh7919 [place] [id number]. Shahbaz Rogel TSHon 07-04-2022 TSH 0.359 uIU/mL Normal 0.358-3.74 0 [facility] Comment on above: Performed By: #### T SH, T4 ####[facility] Epsemjraav4894 [place] [address]Dr. Shahbaz Rogel XR CHEST 1 Von 07-04-2022 XR CHEST 1 V Normal [facility] XR CHEST 1 V Normal [facility] CHLAMYDIA PNEUMONIAE IgG IgM IgAon 06-27-2022 Chlamydia pneumoniae IgA <1:16 Normal Neg:<1:16 [facility] Comment on above: Performed By: #### C HLMPNE ####[facility] Dmramlslle94[address] [place], [place] [address]Dr. jarrod Rogel Chlamydia pneumoniae IgG <1:16 Normal Neg:<1:16 [facility] Comment on above: Performed By: #### C HLMPNE ####[facility] Kfsrtjllig79[address] [place], [place] [address]Dr. Formerly Named [facility] Chlamydia pneumoniae IgM <1:10 Normal Neg:<1:10 [facility] Comment on above: Performed By: #### C HLMPNE ####[facility] Pnevayzklz[address] [place], [place] [address]Dr. Shahbaz Rogel Test Information: Comment Normal [facility] Comment on above: Result Comment: This [...] or procedure. Performed By: #### C HLMPNE ####[facility] Dcsaypthnc[address] [place], [place] [address]Dr. Shahbaz Rogel Covid-19 PCR (CVDTB)on 06-03 SARS-CoV-2 (COVID-19) RNA PAVAN+probe Ql (Unsp spec) Not detected Normal NOT DETECTED [facility] Comment on above: Result Comment: This test is not yet approved or cleared by the [place] FDA. When there are no FDA-approved or cleared tests available, and other criteria are met, FDA can make tests available under an emergency access mechanism called an Emergency Use Authorization (EUA). The EUA for this test is supported by the [place] of Health and Human Service's (HHS's) declaration [...] with SARS-CoV-2. Performed By: #### C VDTBH ####[facility] Gycdodopbg74[address] [place], [place] [address]Dr. Shahbaz Rogel CYCLIC CITRULLINATED PEPTIDE AB (CCP)on 06-25-2022 CCP Antibodies IgG/IgA 13 units Normal 0-19 [facility] Comment on above: Result Comment: Nega tive <20 Weak positive 20 - 39 Moderate positive 40 - 59 Strong positive >59 Performed By: #### C CPAB ####[facility] Guossdevxk7659 [place] [address]Dr. Shahbaz Rogel ANTI NEUTROPHIL CYTOPLASMIC AB (ANCA) PRon 06-24-2022 Anti-MPO Antibodies <0.2 Normal 0.0-0.9 [facility] Comment on above: Result Comment: Perf ormed at: BN Performed By: #### A NCAP ####[facility] Ywflnisiut9[address] [place], [place] [address]Dr. Shahbaz Rogel Anti-PR3 Antibodies 5.0 units Critically high 0.0-0.9 [facility] Comment on above: Result Comment: Perf ormed at: BN Performed By: #### A NCAP ####[facility] Xfiauyonmm8672 [place] [address]Dr. Lilajarrod Juan F Atypical pANCA <1:20 Normal Neg:<1:20 [facility] Comment on above: Result Comment: The atypical pANCA pattern has been observed in a significantpercentage of patients with ulcerative colitis, primary sclerosingcholangitis and autoimmune hepatitis.Performed at: CB Performed By: #### A NCAP ####[facility] Uxxbjdhbnh8180 [place] [address]Dr. Shahbaz Rogel Cytoplasmic (C-ANCA) <1:20 Normal Neg:<1:20 [facility] Comment on above: Result Comment: Perf ormed at: CB Performed By: #### A NCAP ####[facility] Ctujfeuviq83[address] [place] [address]Dr. Shahbaz Rogel Perinuclear (P-ANCA) 1:80 Critically high Neg:<1:20 [facility] Comment on above: Result Comment: The presence of positive fluorescence exhibiting P-ANCA or C-ANCApatterns alone is not specific for the diagnosis of Ada'sGranulomatosis (WG) or microscopic polyangiitis. Decisions abouttreatment should not be based solely on ANCA IFA results. TheInternational ANCA Group Consensus recommends follow up testing ofpositive sera with both WV-3 and MPO-ANCA enzyme immunoassays. Asmany as 5% serum samples are positive only by EIA.Ref. AM J Clin Pathol 1999;111:507-513.Performed at: CB Performed By: #### A NCAP ####[facility] Accrkkdsad3[address] [place] [address]Dr. Shahbaz Rogel ANTIGLOMERULAR BASEMENT MEMB ANTOINE ABSon 06-24-2022 Anti-GBM Antibodies <0.2 Normal 0.0-0.9 [facility] Comment on above: Performed By: #### A GBM ####[facility] Qoaknmbbzy2804 [place] [address]Dr. Shahbaz Rogel SHAHANA EIA W/REFLEX 5 BIOMARKER Son 06-23-2022 SHAHANA Direct Negative Normal Negative [facility] Comment on above: Performed By: #### A NARF ####[facility] Iaqedognbn7628 [place] [address]Dr. Lilajarrod Rogel ANTISCLERODERMA ABon 022 Antiscleroderma-70 Antibodies <0.2 Normal 0.0-0.9 [facility] Comment on above: Performed By: #### A NSCLER ####[facility] U[address]qyyssgd64[address] [place], [place] [address]Dr. Shahbaz Rogel RHEUMATOID FACTORon 06-23-20 RA Latex Turbid. <10.0 Normal <14.0 [facility] Comment on above: Performed By: #### R F ####[facility] Uggslfzmii10[address] [place], [place] [address]Dr. Shahbaz Rogel CBC AUTO DIFFon 06-22-2022 BASO # 0.0 103/ul Normal 0.0-0.1 [facility] Comment on above: Performed By: #### C BC ####[facility] Etquiuvcis[address] [place], [place] [address]Dr. Shahbaz Rogel Basophils/100 WBC (Bld) 0.5 % Normal 0.2-2.0 [facility] Comment on above: Performed By: #### C BC ####[facility] Swsfjzelrx32[address] [place], [place] [address]Dr. Shahbaz Rogel EO # 0.1 103/ul Normal 0.0-0.7 [facility] Comment on above: Performed By: #### C BC ####[facility] Xxpiqdwrcf5[address] [place], [place] [address]Dr. Shahbaz Rogel Eosinophils/100 WBC (Bld) 3.4 % Normal 0.9-7.0 [facility] Comment on above: Performed By: #### C BC ####[facility] Hjqctakirm85[address] [place], [place] [address]Dr. Shahbaz Rogel Erythrocyte distribution width (RBC) [Ratio] 13.2 % Normal 11.0-15.0 [facility] Comment on above: Performed By: #### C BC ####[facility] Ekaikgqzxd2[address] [place], [place] [address]Dr. Shahbaz Rogel Hematocrit (Bld) [Volume fraction] 45.6 % Normal 36.0-48.0 [facility] Comment on above: Performed By: #### C BC ####[facility] Lqfkzyuiyn2829 [place] [id number]. Shahbaz Rogel Hemoglobin (Bld) [Mass/Vol] 14.7 g/dL Normal 12.0-16.0 [facility] Comment on above: Performed By: #### C BC ####[facility] Grtjwkcdin4983 [place] [address]Dr. Shahbaz Rogel IG # 0.01 10e3/ul Normal 0.00-0.03 [facility] Comment on above: Performed By: #### C BC ####[facility] Sirkkwbhgt6030 [place] [address]Dr. Shahbaz Juan F IG % 0.3 % Normal 0.0-0.5 [facility] Comment on above: Performed By: #### C BC ####[facility] Wpnehotdzy35[address] [place], [place] [address]Dr. Shahbaz Juan F LYMPH # 1.0 103/ul Critically low 1.2-3.8 [facility] Comment on above: Performed By: #### C BC ####[facility] Slikvrytkr3325 [place] [address]Dr. Shahbaz Juan F Lymphocytes/100 WBC (Bld) 25.7 % Normal 20.5-60.0 [facility] Comment on above: Performed By: #### C BC ####[facility] Cmswagudzk8466 [place] [address]Dr. Shahbaz Juan F MANUAL DIFF REQ NO Normal [facility] Comment on above: Performed By: #### C BC ####[facility] Kupghbsxjv5800 [place] [id number]. Shahbaz Juan F MCH (RBC) [Entitic mass] 28.1 pg Normal 26.7-34.0 [facility] Comment on above: Performed By: #### C BC ####[facility] Kojtwrhssh2779 [place] [address]Dr. Shahbaz Juan F MCHC (RBC) [Mass/Vol] 32.2 g/dL Normal 29.9-35.2 [facility] Comment on above: Performed By: #### C BC ####[facility] Wcjlgqcyfb6943 [place] [address]Dr. Shahbaz Rogel MCV (RBC) [Entitic vol] 87.2 fL Normal 81.0-99.0 [facility] Comment on above: Performed By: #### C BC ####[facility] Iqgfgnhrms4851 [place] [address]Dr. Shahbaz Rogel MONO # 0.2 103/ul Critically low 0.3-0.8 [facility] Comment on above: Performed By: #### C BC ####[facility] Dmsbcembqu6357 [place] [address]Dr. Shahbaz Juan F Monocytes/100 WBC (Bld) 6.0 % Normal 1.7-12.0 [facility] Comment on above: Performed By: #### C BC ####[facility] Vdmwfpwmsq[address] [place], [place] [address]Dr. Shahbaz Rogel NEUT # 2.5 103/ul Normal 1.4-6.5 [facility] Comment on above: Performed By: #### C BC ####[facility] Bogdcieljt[address] [place], [place] [address]Dr. Shahbaz Juan F Neutrophils/100 WBC (Bld) 64.1 % Normal 43.0-75.0 [facility] Comment on above: Performed By: #### C BC ####[facility] Kafyzlqqtt[address] [place], [place] [address]Dr. Shahbaz Juan F Platelet mean volume (Bld) [Entitic vol] 9.4 fL Critically low 9.5-13.5 [facility] Comment on above: Performed By: #### C BC ####[facility] Hlanshaalo5584 [place] [phone]. Shahbaz Juan F PLT 212 103/ul Normal 150-450 [facility] Comment on above: Performed By: #### C BC ####[facility] Fuzalulvxf76[address] [place], [place] [address]Dr. Shahbaz Rogel RBC 5.23 106/ul Normal 4.20-5.40 [facility] Comment on above: Performed By: #### C BC ####[facility] Kckadphrva1268 [place] [address]Dr. Lilajarrod Juan F WBC 3.9 103/ul Critically low 4.0-11.0 [facility] Comment on above: Performed By: #### C BC ####[facility] Pnzoepenot8897 [place] [address]Dr. Shahbaz Rogel PROF 14(COMP METB)on 022 Albumin [Mass/Vol] 4.1 g/dL Normal 3.4-5.0 [facility] Comment on above: Performed By: #### C MP ####[facility] Elrldqnfdc6194 [place] [address]Dr. Shahbaz Rogel Albumin/Globulin [Mass ratio] 1.1 {ratio} Normal [facility] Comment on above: Performed By: #### C MP ####[facility] Nwextxspby67[address] [place], [place] [address]Dr. Shahbaz Rogel ALP [Catalytic activity/Vol] 133 U/L Critically high 46-116 [facility] Comment on above: Performed By: #### C MP ####[facility] Niqydspxfe9108[address] [place], [place] [address]Dr. Lilajarrod Rogel ALT [Catalytic activity/Vol] 29 U/L Normal 14-59 [facility] Comment on above: Performed By: #### C MP ####[facility] Dhwbxfhspo5978 [place] [address]Dr. Shahbaz Rogel Anion gap [Moles/Vol] 10.9 mmol/L Normal [facility] Comment on above: Performed By: #### C MP ####[facility] Tpabcsgnof1753 [place] [address]Dr. Shahbaz Rogel AST [Catalytic activity/Vol] 23 U/L Normal 15-37 [facility] Comment on above: Performed By: #### C MP ####[facility] Alikupahcf8[address] [place], [place] [address]Dr. Shahbaz Rogel Bilirubin [Mass/Vol] 0.3 mg/dL Normal 0.2-1.0 [facility] Comment on above: Performed By: #### C MP ####[facility] Jdwmqverpz9987 [place] [address]Dr. Shahbaz Rogel Calcium [Mass/Vol] 9.1 mg/dL Normal 8.5-10.1 [facility] Comment on above: Performed By: #### C MP ####[facility] Wcynxshong2696 [place] [address]Dr. Shahbaz Rogel Chloride [Moles/Vol] 103 mmol/L Normal 98-107 [facility] Comment on above: Performed By: #### C MP ####[facility] Zdaralkgyv5299 [place] [address]Dr. Shahbaz Rogel CO2 [Moles/Vol] 30.8 mmol/L Normal 21.0-32.0 [facility] Comment on above: Performed By: #### C MP ####[facility] Udyhgeiybs23[address] [place], [place] [address]Dr. Shahbaz Rogel Creatinine [Mass/Vol] 1.02 mg/dL Normal 0.55-1.02 [facility] Comment on above: Performed By: #### C MP ####[facility] Ubuonnzhlq[address] [place], [place] [address]Dr. Shahbaz Rogel EGFR-AF SERBIAN >60 Normal >=60 [facility] Comment on above: Performed By: #### C MP ####[facility] Ttbphkccco9[address] [place], [place] [address]Dr. Shahbaz Rogel EGFR-NON AF SERBIAN 56 mL/min/1.73m2 Critically low >=60 [facility] Comment on above: Performed By: #### C MP ####[facility] Zwxdirmpxv25[address] [place], [place] [address]Dr. Shahbaz Rogel Globulin (S) [Mass/Vol] 3.7 g/dL Normal [facility] Comment on above: Performed By: #### C MP ####[facility] [address]qbjsdtv[address] [place], [place] [address]Dr. Shahbaz Rogel Glucose [Mass/Vol] 80 mg/dL Normal 74-106 [facility] Comment on above: Performed By: #### C MP ####[facility] Oqeaqgdmph0136 [place] [id number]. Shahbaz Rogel Potassium [Moles/Vol] 3.7 mmol/L Normal 3.5-5.1 [facility] Comment on above: Performed By: #### C MP ####[facility] Jcvdlgugfj2530 [place], [place] [address]Yw. Shahbaz Rogel Protein [Mass/Vol] 7.8 g/dL Normal 6.4-8.2 [facility] Comment on above: Performed By: #### C MP ####[facility] Zqsxallrui3367 [place] [id number]. Shahbaz oRgel Sodium [Moles/Vol] 141 mmol/L Normal 136-145 [facility] Comment on above: Performed By: #### C MP ####[facility] Ppvtaypkap5600 [place] [phone]. Shahbaz Rogel Urea nitrogen [Mass/Vol] 10.0 mg/dL Normal 7.0-18.0 [facility] Comment on above: Performed By: #### C MP ####[facility] Twnuyglkts2992 [place] [id number]. Shahbaz Rogel Urea nitrogen/Creatinine [Mass ratio] 9.8 mg/mg Normal [facility] Comment on above: Performed By: #### C MP ####[facility] Oryscgyumv1812 [place] [id number]. Shahbaz oRgel SED RATE [facility] 2021 SED RATE 17 mm/hr Normal <=30 [facility] Comment on above: Performed By: #### S EDR ####[facility] Wmbpvpbymz3998 [place] [phone]. Shahbaz Rogel CT CHEST HI RESOLUTIONon CT CHEST HI RESOLUTION Normal [facility] XR ANKLE RT MIN 3 VIEWSon XR ANKLE RT MIN 3 VIEWS Normal [facility] CT CHEST WO CONon 03-03-2022 CT CHEST WO CON Normal [facility] CT CSPINE WO CONon 2 CT CSPINE WO CON Normal [facility] XR CHEST 2 Von 06-02-2022 XR CHEST 2 V Normal [facility] XR STERNUM MIN 2 VIEWSon XR STERNUM MIN 2 VIEWS Normal [facility] CT HEAD WO CONon 03-02-2022 CT HEAD WO CON Normal [facility] CBC AUTO DIFFon 01-21-2022 BASO # 0.0 103/ul Normal 0.0-0.1 [facility] Comment on above: Performed By: #### C BC ####[facility] [address]od[address] [place] [address]Dr. Shahbaz Rogel Basophils/100 WBC (Bld) 0.0 % Critically low 0.2-2.0 [facility] Comment on above: Performed By: #### C BC ####[facility] [address] [place], [place] [address]Dr. Shahbaz Rogel EO # 0.0 103/ul Normal 0.0-0.7 [facility] Comment on above: Performed By: #### C BC ####[facility] Lhpjvnenxa0[address] [place], [place] [address]Dr. Shahbaz Rogel Eosinophils/100 WBC (Bld) 0.0 % Critically low 0.9-7.0 [facility] Comment on above: Performed By: #### C BC ####[facility] Offtqzsgak15[address] [place], [place] [address]Dr. Shahbaz Rogel Erythrocyte distribution width (RBC) [Ratio] 14.2 % Normal 11.0-15.0 [facility] Comment on above: Performed By: #### C BC ####[facility] Bzhwoapzud09[address] [place], [place] [address]Dr. Shahbaz Rogel Hematocrit (Bld) [Volume fraction] 38.9 % Normal 36.0-48.0 [facility] Comment on above: Performed By: #### C BC ####[facility] Xqtusueeot8[address] [place], [place] [address]Dr. Shahbaz Rogel Hemoglobin (Bld) [Mass/Vol] 11.8 g/dL Critically low 12.0-16.0 [facility] Comment on above: Performed By: #### C BC ####[facility] [address]fg[address] [place] [address]Dr. Shahbaz Rogel IG # 0.03 10e3/ul Normal 0.00-0.03 [facility] Comment on above: Performed By: #### C BC ####[facility] Lacabfwbkw62[address] [place], [place] [address]DrChen Shahbaz Rogel IG % 0.4 % Normal 0.0-0.5 [facility] Comment on above: Performed By: #### C BC ####[facility] Ursptazuil23[address] [place], [place] [address]DrChen Shahbaz Juan F LYMPH # 0.8 103/ul Critically low 1.2-3.8 [facility] Comment on above: Performed By: #### C BC ####[facility] Brmzbpjgln[address] [place], [place] [address]DrChen Shahbaz Juan F Lymphocytes/100 WBC (Bld) 10.3 % Critically low 20.5-60.0 [facility] Comment on above: Performed By: #### C BC ####[facility] Jawxlteogf[address] [place], [place] [address]DrChen Shahbaz Juan F MANUAL DIFF REQ NO Normal [facility] Comment on above: Performed By: #### C BC ####[facility] Zweufmuqvk75[address] [place], [place] [address]DrChen Shahbaz Rogel MCH (RBC) [Entitic mass] 27.1 pg Normal 26.7-34.0 [facility] Comment on above: Performed By: #### C BC ####[facility] Peooaitmjv64[address] [place], [place] [address]DrChen Shahbaz Juan F MCHC (RBC) [Mass/Vol] 30.3 g/dL Normal 29.9-35.2 [facility] Comment on above: Performed By: #### C BC ####[facility] Knmmjhslvy01[address] [place], [place] [address]DrChen Shahbaz Juan F MCV (RBC) [Entitic vol] 89.2 fL Normal 81.0-99.0 [facility] Comment on above: Performed By: #### C BC ####[facility] Krbojazemj[address] [place], [place] [address]Dr. Shahbaz Rogel MONO # 0.4 103/ul Normal 0.3-0.8 [facility] Comment on above: Performed By: #### C BC ####[facility] Nxroguzhph[address] [place] [address]Dr. Shahbaz Rogel Monocytes/100 WBC (Bld) 4.7 % Normal 1.7-12.0 [facility] Comment on above: Performed By: #### C BC ####[facility] Fgwesztyhv18[address] [place] [address]Dr. Shahbaz Rogel NEUT # 6.6 103/ul Critically high 1.4-6.5 [facility] Comment on above: Performed By: #### C BC ####[facility] Mwltpozhpe[address] [place], [place] [address]Dr. Shahbaz Rogel Neutrophils/100 WBC (Bld) 84.6 % Critically high 43.0-75.0 [facility] Comment on above: Performed By: #### C BC ####[facility] Tbjhakhjhc3217[address] [place], [place] [address]Dr. Shahbaz Rogel Platelet mean volume (Bld) [Entitic vol] 10.0 fL Normal 9.5-13.5 [facility] Comment on above: Performed By: #### C BC ####[facility] Laaaxjsxiu50[address] [place], [place] [address]Dr. Shahbaz Rogel PLT 165 103/ul Normal 150-450 [facility] Comment on above: Performed By: #### C BC ####[facility] Ijsecnyqpg8327[address] [place], [place] [address]Dr. Shahbaz Rogel RBC 4.36 106/ul Normal 4.20-5.40 [facility] Comment on above: Performed By: #### C BC ####[facility] Plzpepzazw12[address] [place], [place] [address]Dr. Shahbaz Rogel WBC 7.8 103/ul Normal 4.0-11.0 [facility] Comment on above: Performed By: #### C BC ####[facility] Tpowhadwbo2349[address] [place], [place] [address]Dr. Shahbaz Rogel ER URINE PROFILEon 2 Bilirubin Ql (U) Negative Normal NEGATIVE [facility] Comment on above: Performed By: #### E RUR ####[facility] Slsiiosybl987[address] [place], [place] [address]Dr. Shahbaz Rogel Clarity (U) CLEAR Normal CLEAR [facility] Comment on above: Performed By: #### E RUR ####[facility] Pqfqayirxz5947[address] [place], [place] [address]Dr. Shahbaz Rogel Color (U) LT. YELLOW Normal YELLOW [facility] Comment on above: Performed By: #### E RUR ####[facility] Aqdveazmbt7084[address] [place], [place] [address]Dr. Shahbaz Rogel ERUAHD A micrscopic examina tion will be performed if indicated. Normal [facility] Comment on above: Performed By: #### E RUR ####[facility] Hztbbyuqwk7073[address] [place], [place] [address]Dr. Shahbaz Rogel Glucose Ql (U) Negative Normal NEGATIVE [facility] Comment on above: Performed By: #### E RUR ####[facility] Koillqnevs1051[address] [place], [place] [address]Dr. Shahbaz Rogel Hemoglobin Ql (U) Negative Normal NEGATIVE [facility] Comment on above: Performed By: #### E RUR ####[facility] Svfhorlaqg2985[address] [place], [place] [address]Dr. Lilajarrod Rogel Ketones Ql (U) Negative Normal NEGATIVE [facility] Comment on above: Performed By: #### E RUR ####[facility] Yevximosnq4425[address] [place], [place] [address]Dr. Shahbaz Rogel LEUKOCYTES Negative Normal NEGATIVE [facility] Comment on above: Performed By: #### E RUR ####[facility] Cgcvvybpsy3104[address] [place], [place] [address]Dr. Lilajarrod Rogel Nitrite Ql (U) Negative Normal NEGATIVE [facility] Comment on above: Performed By: #### E RUR ####[facility] Ybryehzvez313[address] [place], [place] [address]Dr. Lilajarrod Rogel pH (U) 6.0 [pH] Normal 5-9 [facility] Comment on above: Performed By: #### E RUR ####[facility] Xktxhtulfa[address] [place] [address]Dr. Shahbaz Rogel SPEC GRAVITY 1.020 Normal 1.005-<=1. 025 [facility] Comment on above: Performed By: #### E RUR ####[facility] Geugkbxeqi32[address] [place] [address]Dr. Shahbaz Rogel UA PROTEIN Negative Normal NEGATIVE/ TRACE [facility] Comment on above: Performed By: #### E RUR ####[facility] Qmsflkimol2543 [place] [address]Dr. Shahbaz Rogel UR MICRO IND NOT INDICATED Normal [facility] Comment on above: Performed By: #### E RUR ####[facility] Glbovsadwq34[address] [place] [address]Dr. Shahbaz Rogel Urobilinogen Qn (U) 0.2 {Melida'U}/dL Normal 0.2 - 1. 0 [facility] Comment on above: Performed By: #### E RUR ####[facility] Payugjryhd5604[address] [place], [place] [address]Dr. Shahbaz Rogel POINT OF CARE GLUCOSEon 01-01 Glucose [Mass/Vol] 151 mg/dL Critically high 74-106 [facility] Comment on above: Performed By: #### P OCGLUC ####[facility] Ajhzbkogcj463[address] [place], [place] [address]Dr. Shahbaz Rogel Glucose [Mass/Vol] 248 mg/dL Critically high 74-106 [facility] Comment on above: Performed By: #### P OCGLUC ####[facility] Uiuglnmscq3264[address] [place], [place] [address]Dr. Shahbaz Rogel PROF 14(COMP METB)on 022 Albumin [Mass/Vol] 2.8 g/dL Critically low 3.4-5.0 [facility] Comment on above: Performed By: #### C MP ####[facility] Xcoqsuoheb954[address] [place], [place] [address]Dr. Shahbaz Rogel Albumin/Globulin [Mass ratio] 0.9 {ratio} Normal [facility] Comment on above: Performed By: #### C MP ####[facility] Wvzionvgvm[address] [place] [address]Dr. Shahbaz Rogel ALP [Catalytic activity/Vol] 90 U/L Normal 46-116 [facility] Comment on above: Performed By: #### C MP ####[facility] Erkwwnyjeg485[address] [place] [address]Dr. Shahbaz Juan F ALT [Catalytic activity/Vol] 20 U/L Normal 14-59 [facility] Comment on above: Performed By: #### C MP ####[facility] Twrsygshcb839[address] [place], [place] [address]Dr. Shahbaz Rogel Anion gap [Moles/Vol] 8.9 mmol/L Normal [facility] Comment on above: Performed By: #### C MP ####[facility] Tharfgnolb6259[address] [place], [place] [address]Dr. Shahbaz Juan F AST [Catalytic activity/Vol] 14 U/L Critically low 15-37 [facility] Comment on above: Performed By: #### C MP ####[facility] Wpqprryzdb[address] [place], [place] [address]Dr. Lilajarrod Juan F Bilirubin [Mass/Vol] 0.1 mg/dL Critically low 0.2-1.3 [facility] Comment on above: Performed By: #### C MP ####[facility] Pblqfywdue27[address] [place], [place] [address]Dr. Shahbaz Rogel Calcium [Mass/Vol] 8.2 mg/dL Critically low 8.5-10.1 [facility] Comment on above: Performed By: #### C MP ####[facility] Qbigtfxuuh26[address] [place], [place] [address]Dr. Shahbaz Rogel Chloride [Moles/Vol] 110 mmol/L Critically high 98-107 [facility] Comment on above: Performed By: #### C MP ####[facility] Bbwylghiuj224[address] [place], [place] [address]Dr. Shahbaz Rogel CO2 [Moles/Vol] 28.0 mmol/L Normal 22.0-30.0 [facility] Comment on above: Performed By: #### C MP ####[facility] Zrmcicwkjw[address] [place] [address]Dr. Shahbaz Rogel Creatinine [Mass/Vol] 0.78 mg/dL Normal 0.52-1.04 [facility] Comment on above: Performed By: #### C MP ####[facility] Mmhgrxfwqm9[address] [place] [address]Dr. Shahbaz Rogel EGFR-AF SERBIAN >60 Normal >=60 [facility] Comment on above: Performed By: #### C MP ####[facility] Kcgapqddfu70[address] [place] [address]Dr. Shahbaz Rogel EGFR-NON AF SERBIAN >60 Normal >=60 [facility] Comment on above: Performed By: #### C MP ####[facility] Irutududfz5166[address] [place], [place] [address]Dr. Shahbaz Juan F Globulin (S) [Mass/Vol] 3.1 g/dL Normal [facility] Comment on above: Performed By: #### C MP ####[facility] Qokuyfwaih3341[address] [place], [place] [address]Dr. Shahbaz Rogel Glucose [Mass/Vol] 121 mg/dL Critically high 74-106 [facility] Comment on above: Performed By: #### C MP ####[facility] Cntghgxjlu930[address] [place], [place] [address]Dr. Shahbaz Rogel Potassium [Moles/Vol] 3.9 mmol/L Normal 3.4-5.0 [facility] Comment on above: Performed By: #### C MP ####[facility] Lxugllhucf4862[address] [place], [place] [address]Dr. Shahbaz Rogel Protein [Mass/Vol] 5.9 g/dL Critically low 6.1-8.2 [facility] Comment on above: Performed By: #### C MP ####[facility] Xocaqkjgog1571[address] [place], [place] [address]Dr. Shahbaz Rogel Sodium [Moles/Vol] 143 mmol/L Normal 137-145 [facility] Comment on above: Performed By: #### C MP ####[facility] Fnxjzulzor8707[address] [place], [place] [address]Dr. Shahbaz Rogel Urea nitrogen [Mass/Vol] 26.0 mg/dL Critically high 7.0-18.0 [facility] Comment on above: Performed By: #### C MP ####[facility] Nuskjfftsg6004[address] [place], [place] [address]Dr. Shahbaz Juan F Urea nitrogen/Creatinine [Mass ratio] 33.3 mg/mg Normal [facility] Comment on above: Performed By: #### C MP ####[facility] Hlvbqeevps17[address] [place], [place] [address]Dr. Shahbaz Juan F WDJTK-9-ZAMUTMIOYXBuc 2021 Cooyu-4-Kixrehakrzt, Serum 154 mg/dL Normal 101-187 [facility] Comment on above: Performed By: #### A LPHA-1 ####[facility] Hmhpamfwac8[address] [place], [place] [address]Dr. Shahbaz Juan F CBC AUTO DIFFon 01-20-2022 BASO # 0.0 103/ul Normal 0.0-0.1 [facility] Comment on above: Performed By: #### C BC ####[facility] Egajacwcqk636[address] [place], [place] [address]Dr. Shahbaz Juan F Basophils/100 WBC (Bld) 0.0 % Critically low 0.2-2.0 [facility] Comment on above: Performed By: #### C BC ####[facility] Eofilsjbuw4695[address] [place], [place] [address]Dr. Shahbaz Rogel EO # 0.0 103/ul Normal 0.0-0.7 [facility] Comment on above: Performed By: #### C BC ####[facility] Aciytscysp668[address] [place], [place] [address]Dr. Lilajarrod Rogel Eosinophils/100 WBC (Bld) 0.0 % Critically low 0.9-7.0 [facility] Comment on above: Performed By: #### C BC ####[facility] Chbmzedlra99[address] [place], [place] [address]Dr. Shahbaz Rogel Erythrocyte distribution width (RBC) [Ratio] 13.7 % Normal 11.0-15.0 [facility] Comment on above: Performed By: #### C BC ####[facility] Ontoaumoou7177[address] [place], [place] [address]Dr. Shahbaz Rogel Hematocrit (Bld) [Volume fraction] 41.2 % Normal 36.0-48.0 [facility] Comment on above: Performed By: #### C BC ####[facility] Bfhpuglyap[address] [place], [place] [address]Dr. Shahbaz Rogel Hemoglobin (Bld) [Mass/Vol] 12.8 g/dL Normal 12.0-16.0 [facility] Comment on above: Performed By: #### C BC ####[facility] Bompjebmpj3231[address] [place], [place] [address]Dr. Shahbaz Rogel IG # 0.10 10e3/ul Critically high 0.00-0.03 [facility] Comment on above: Performed By: #### C BC ####[facility] Ubuutblvmq6553[address] [place], [place] [address]Dr. Shahbaz Rogel IG % 0.5 % Normal 0.0-0.5 [facility] Comment on above: Performed By: #### C BC ####[facility] Nmwwdwszop33[address] [place], [place] [address]Dr. Shahbaz Rogel LYMPH # 0.7 103/ul Critically low 1.2-3.8 [facility] Comment on above: Performed By: #### C BC ####[facility] Syoemgxjyd[address] [place], [place] [address]Dr. Shahbaz Rogel Lymphocytes/100 WBC (Bld) 6.2 % Critically low 20.5-60.0 [facility] Comment on above: Result Comment: dif. not rqd. same as 01/18/22 Performed By: #### C BC ####[facility] Ahvuzlexof[address] [place], [place] [address]Dr. Shahbaz Rogel MANUAL DIFF REQ NO Normal [facility] Comment on above: Performed By: #### C BC ####[facility] Nqkyhwfhvl0899[address] [place], [place] [address]Dr. Shahbaz Rogel MCH (RBC) [Entitic mass] 27.2 pg Normal 26.7-34.0 [facility] Comment on above: Performed By: #### C BC ####[facility] Fwoqfxdvjp[address] [place] [address]Dr. Shahbaz Rogel MCHC (RBC) [Mass/Vol] 31.1 g/dL Normal 29.9-35.2 [facility] Comment on above: Performed By: #### C BC ####[facility] Ninilwubtv[address] [place] [address]Dr. Shahbaz Rogel MCV (RBC) [Entitic vol] 87.5 fL Normal 81.0-99.0 [facility] Comment on above: Performed By: #### C BC ####[facility] Wqgsphfzho55[address] [place] [address]Dr. Shahbaz Juan F MONO # 0.2 103/ul Critically low 0.3-0.8 [facility] Comment on above: Performed By: #### C BC ####[facility] Ltaajiygql[address] [place], [place] [address]Dr. Shahbaz Juan F Monocytes/100 WBC (Bld) 1.7 % Normal 1.7-12.0 [facility] Comment on above: Performed By: #### C BC ####[facility] Pkjopcpslu[address] [place] [address]Dr. Shahbaz Rogel NEUT # 9.8 103/ul Critically high 1.4-6.5 [facility] Comment on above: Performed By: #### C BC ####[facility] Kgkvhcoimm34[address] [place] [address]Dr. Shahbaz Juan F Neutrophils/100 WBC (Bld) 91.6 % Critically high 43.0-75.0 [facility] Comment on above: Performed By: #### C BC ####[facility] Uahkawyaqf43[address] [place] [address]Dr. Shahbaz Juan F Platelet mean volume (Bld) [Entitic vol] 10.0 fL Normal 9.5-13.5 [facility] Comment on above: Performed By: #### C BC ####[facility] Ksytbpaurw[address] [place] [id number]. Shahbaz Rogel PLT 198 103/ul Normal 150-450 [facility] Comment on above: Performed By: #### C BC ####[facility] Xepzrbiajf[address] [place] [address]Dr. Shahbaz Rogel RBC 4.71 106/ul Normal 4.20-5.40 [facility] Comment on above: Performed By: #### C BC ####[facility] Mrhzrxqrkg5524 [place] [address]Dr. Shahbaz Rogel WBC 10.7 103/ul Normal 4.0-11.0 [facility] Comment on above: Performed By: #### C BC ####[facility] Pprmwrxlwx1543 [place] [address]Dr. Shahbaz Rogel POINT OF CARE GLUCOSEon 01-01 Glucose [Mass/Vol] 157 mg/dL Critically high 74-106 [facility] Comment on above: Performed By: #### P OCGLUC ####[facility] Uvmotxqbkt8994 [place] [address]Dr. Shahbaz Rogel Glucose [Mass/Vol] 225 mg/dL Critically high 74-106 [facility] Comment on above: Performed By: #### P OCGLUC ####[facility] Kdhbllvbvw3936 [place] [address]Dr. Shahbaz Rogel Glucose [Mass/Vol] 185 mg/dL Critically high 74-106 [facility] Comment on above: Performed By: #### P OCGLUC ####[facility] Peeufnwshm9156 [place] [address]Dr. Shahbaz Rogel Glucose [Mass/Vol] 134 mg/dL Critically high 74-106 [facility] Comment on above: Performed By: #### P OCGLUC ####[facility] Otrmzjloal[address] [place], [place] [address]Dr. Shahbaz Juan F PROF 14(COMP METB)on 022 Albumin [Mass/Vol] 3.0 g/dL Critically low 3.4-5.0 [facility] Comment on above: Performed By: #### C MP ####[facility] Aiahgajdys18[address] [place] [address]Dr. Shahbaz Juan F Albumin/Globulin [Mass ratio] 0.9 {ratio} Normal [facility] Comment on above: Performed By: #### C MP ####[facility] Dhrhkonwkh16[address] [place] [id number]. Shahbaz Rogel ALP [Catalytic activity/Vol] 81 U/L Normal 46-116 [facility] Comment on above: Performed By: #### C MP ####[facility] Eapicellxn38[address] [place] [address]Dr. Shahbaz Juan F ALT [Catalytic activity/Vol] 14 U/L Normal 14-59 [facility] Comment on above: Performed By: #### C MP ####[facility] Kqxwzgqpji[address] [place], [place] [address]Dr. Shahbaz Rogel Anion gap [Moles/Vol] 13.1 mmol/L Normal [facility] Comment on above: Performed By: #### C MP ####[facility] Aylwpmcwaq08[address] [place], [place] [address]Dr. Shahbaz Juan F AST [Catalytic activity/Vol] 20 U/L Normal 15-37 [facility] Comment on above: Performed By: #### C MP ####[facility] Fdnjtwjlfq8726[address] [place], [place] [address]Dr. Shahbaz Rogel Bilirubin [Mass/Vol] 0.3 mg/dL Normal 0.2-1.3 [facility] Comment on above: Performed By: #### C MP ####[facility] Ppzwrpopkb[address] [place], [place] [address]Dr. Shahbaz Rogel Calcium [Mass/Vol] 8.5 mg/dL Normal 8.5-10.1 [facility] Comment on above: Performed By: #### C MP ####[facility] Euzqylfxma050[address] [place], [place] [address]Dr. Shahbaz Rogel Chloride [Moles/Vol] 107 mmol/L Normal 98-107 [facility] Comment on above: Performed By: #### C MP ####[facility] Npycfdwtky0651 [place] [address]Dr. Shahbaz Juan F CO2 [Moles/Vol] 24.0 mmol/L Normal 22.0-30.0 [facility] Comment on above: Performed By: #### C MP ####[facility] Woznfystik9[address] [place] [address]Dr. Lilajarrod Rogel Creatinine [Mass/Vol] 1.00 mg/dL Normal 0.52-1.04 [facility] Comment on above: Performed By: #### C MP ####[facility] Ajxwreqnor3438[address] [place], [place] [address]Dr. Shahbaz Juan F EGFR-AF SERBIAN >60 Normal >=60 [facility] Comment on above: Performed By: #### C MP ####[facility] Jygluygfik34[address] [place], [place] [address]Dr. Shahbaz Rogel EGFR-NON AF SERBIAN 57 mL/min/1.73m2 Critically low >=60 [facility] Comment on above: Performed By: #### C MP ####[facility] Jhvjuwgftz4[address] [place], [place] [address]Dr. Lilajarrod Rogel Globulin (S) [Mass/Vol] 3.4 g/dL Normal [facility] Comment on above: Performed By: #### C MP ####[facility] Grdnanxglf524[address] [place], [place] [address]Dr. Shahbaz Rogel Glucose [Mass/Vol] 153 mg/dL Critically high 74-106 [facility] Comment on above: Performed By: #### C MP ####[facility] Nduztqgzzg4[address] [place], [place] [address]Dr. Lilajarrod Rogel Potassium [Moles/Vol] 4.1 mmol/L Normal 3.4-5.0 [facility] Comment on above: Performed By: #### C MP ####[facility] Cfflpknkha4[address] [place], [place] [address]Dr. Shahbaz Rogel Protein [Mass/Vol] 6.4 g/dL Normal 6.1-8.2 [facility] Comment on above: Performed By: #### C MP ####[facility] Vfkwwzccgo50[address] [place], [place] [address]Dr. Shahbaz Rogel Sodium [Moles/Vol] 140 mmol/L Normal 137-145 [facility] Comment on above: Performed By: #### C MP ####[facility] Rjupznaojb7191 [place] [address]Dr. Shahbaz Rogel Urea nitrogen [Mass/Vol] 26.0 mg/dL Critically high 7.0-18.0 [facility] Comment on above: Performed By: #### C MP ####[facility] Pvyvfdvbzr[address] [place], [place] [address]Dr. Shahbaz Rogel Urea nitrogen/Creatinine [Mass ratio] 26.5 mg/mg Normal [facility] Comment on above: Performed By: #### C MP ####[facility] Uuwckkoand4175[address] [place], [place] [address]Dr. Shahbaz Rogel BNPon 01-19-2022 Natriuretic peptide B (Bld) [Mass/Vol] 117.0 pg/mL Normal <=900.0 [facility] Comment on above: Performed By: #### B [employer], CMP ####[facility] Qjwcbkhfko5[address] [place], [place] [address]Dr. Shahbaz Rogel CBC AUTO DIFFon 01-19-2022 BASO # 0.0 103/ul Normal 0.0-0.1 [facility] Comment on above: Performed By: #### C BC ####[facility] Nmqdiddfhl[address] [place], [place] [address]Dr. Shahbaz Rogel Basophils/100 WBC (Bld) 0.0 % Critically low 0.2-2.0 [facility] Comment on above: Performed By: #### C BC ####[facility] Ryjdqcwbbo[address] [place], [place] [address]Dr. Shahbaz Rogel EO # 0.0 103/ul Normal 0.0-0.7 [facility] Comment on above: Performed By: #### C BC ####[facility] Tzpclwxwgq5[address] [place], [place] [address]Dr. Shahbaz Rogel Eosinophils/100 WBC (Bld) 0.0 % Critically low 0.9-7.0 [facility] Comment on above: Performed By: #### C BC ####[facility] Esvdikoyvf[address] [place], [place] [address]Dr. Shahbaz oRgel Erythrocyte distribution width (RBC) [Ratio] 13.4 % Normal 11.0-15.0 [facility] Comment on above: Performed By: #### C BC ####[facility] Ixbkwpwvtq[address] [place], [place] [address]Dr. Shahbaz Rogel Hematocrit (Bld) [Volume fraction] 46.3 % Normal 36.0-48.0 [facility] Comment on above: Performed By: #### C BC ####[facility] Bdpbmowcso[address] [place], [place] [address]Dr. Shahbaz Rogel Hemoglobin (Bld) [Mass/Vol] 14.3 g/dL Normal 12.0-16.0 [facility] Comment on above: Performed By: #### C BC ####[facility] Aoushputlv46[address] [place], [place] [address]Dr. Shahbaz Rogel IG # 0.00 10e3/ul Normal 0.00-0.03 [facility] Comment on above: Performed By: #### C BC ####[facility] Yfrrawlvxf[address] [address] [place], [place] [address]Dr. Shahbaz Rogel IG % 0.0 % Normal 0.0-0.5 [facility] Comment on above: Performed By: #### C BC ####[facility] Zblexvuuyz[address] [place], [place] [address]Dr. Shahbaz Rogel LYMPH # 0.6 103/ul Critically low 1.2-3.8 [facility] Comment on above: Performed By: #### C BC ####[facility] Rbaeheyxmh7[address] [place], [place] [address]Dr. Shahbaz Rogel Lymphocytes/100 WBC (Bld) 14.2 % Critically low 20.5-60.0 [facility] Comment on above: Performed By: #### C BC ####[facility] Vxtktecjmc5432[address] [place], [place] [address]Dr. Shahbaz Rogel MANUAL DIFF REQ NO Normal [facility] Comment on above: Performed By: #### C BC ####[facility] [address]xahitxx[address] [place] [id number]. Shahbaz Juan F MCH (RBC) [Entitic mass] 27.7 pg Normal 26.7-34.0 [facility] Comment on above: Performed By: #### C BC ####[facility] Nukziylbvo39[address] [place] [id number]. Shahbaz Juan F MCHC (RBC) [Mass/Vol] 30.9 g/dL Normal 29.9-35.2 [facility] Comment on above: Performed By: #### C BC ####[facility] Jqdpzihaoq9[address] [place] [address]Dr. Lilajarrod Rogel MCV (RBC) [Entitic vol] 89.6 fL Normal 81.0-99.0 [facility] Comment on above: Performed By: #### C BC ####[facility] Cxteukjdnp62[address] [place], [place] [address]Dr. Shahbaz Rogel MONO # 0.0 103/ul Critically low 0.3-0.8 [facility] Comment on above: Performed By: #### C BC ####[facility] Jpdeyfidsm6[address] [place], [place] [address]Dr. Shahbaz Rogel Monocytes/100 WBC (Bld) 1.0 % Critically low 1.7-12.0 [facility] Comment on above: Performed By: #### C BC ####[facility] Zhktzmcanr9033[address] [place], [place] [address]Dr. Shahbaz Rogel NEUT # 3.5 103/ul Normal 1.4-6.5 [facility] Comment on above: Performed By: #### C BC ####[facility] Khlotfhvku2941[address] [place], [place] [address]Dr. Shahbaz Rogel Neutrophils/100 WBC (Bld) 84.8 % Critically high 43.0-75.0 [facility] Comment on above: Performed By: #### C BC ####[facility] Esjtbyjczs[address] [place], [place] [address]Dr. Shahbaz Rogel Platelet mean volume (Bld) [Entitic vol] 9.8 fL Normal 9.5-13.5 [facility] Comment on above: Performed By: #### C BC ####[facility] Xfquvrnkgk[address] [place] [address]Dr. Shahbaz Rogel PLT 185 103/ul Normal 150-450 [facility] Comment on above: Performed By: #### C BC ####[facility] Ismmsoxzhp67[address] [place] [phone]. Shahbaz Rogel RBC 5.17 106/ul Normal 4.20-5.40 [facility] Comment on above: Performed By: #### C BC ####[facility] Yyfdjxwrty1339 [place] [address]Dr. Shahbaz Rogel WBC 4.2 103/ul Normal 4.0-11.0 [facility] Comment on above: Performed By: #### C BC ####[facility] Zzkyfvepbo4[address] [place] [address]Dr. Lilajarrod Juan F LACTATE/LACTIC ACIDon 2021 Lactate [Moles/Vol] 1.7 mmol/L Normal 0.7-2.0 [facility] Comment on above: Performed By: #### L ACT ####[facility] Lfeapczvqa7[address] [place], [place] [address]Dr. Shahbaz Rogel POINT OF CARE GLUCOSEon 01-01 Glucose [Mass/Vol] 173 mg/dL Critically high 74-106 [facility] Comment on above: Performed By: #### P OCGLUC ####[facility] Slyfhvttqn69[address] [place] [address]Dr. Lilajarrod Juan F Glucose [Mass/Vol] 181 mg/dL Critically high 74-106 [facility] Comment on above: Performed By: #### P OCGLUC ####[facility] Mcsgkgkwtd4226[address] [place], [place] [address]Dr. Shahbaz Rogel Glucose [Mass/Vol] 154 mg/dL Critically high 74-106 [facility] Comment on above: Performed By: #### P OCGLUC ####[facility] Veoancfyqq7733[address] [place], [place] [address]Dr. Shahbaz Rogel PROF 14(COMP METB)on 04-20-2 022 Albumin [Mass/Vol] 3.5 g/dL Normal 3.4-5.0 [facility] Comment on above: Performed By: #### B [employer] PUMPER, CMP ####[facility] Ankxpccjcn3968 [place] [address]Dr. Shahbaz Rogel Albumin/Globulin [Mass ratio] 0.9 {ratio} Normal [facility] Comment on above: Performed By: #### B [employer], CMP ####[facility] Ldsemrrmum0452 [place] [address]Dr. Shahbaz Rogel ALP [Catalytic activity/Vol] 107 U/L Normal 46-116 [facility] Comment on above: Performed By: #### B [employer], CMP ####[facility] Mgyqndyqlx70[address] [place], [place] [address]Dr. Shahbaz Rogel ALT [Catalytic activity/Vol] 18 U/L Normal 14-59 [facility] Comment on above: Performed By: #### B [employer], CMP ####[facility] Edozvqdlfg1459[address] [place], [place] [address]Dr. Shahbaz Rogel Anion gap [Moles/Vol] 14.1 mmol/L Normal [facility] Comment on above: Performed By: #### B [employer], CMP ####[facility] Rtmumlpikb2446[address] [place], [place] [address]Dr. Shahbaz Rogel AST [Catalytic activity/Vol] 19 U/L Normal 15-37 [facility] Comment on above: Performed By: #### B [employer], CMP ####[facility] Fvsilyijgn1138[address] [place], [place] [address]Dr. Shahbaz Rogel Bilirubin [Mass/Vol] 0.5 mg/dL Normal 0.2-1.3 [facility] Comment on above: Performed By: #### B [employer], CMP ####[facility] Eavfrbluhh36[address] [place], [place] [address]Dr. Shahbaz Rogel Calcium [Mass/Vol] 8.5 mg/dL Normal 8.5-10.1 [facility] Comment on above: Performed By: #### B [employer], CMP ####[facility] Pqajfgkeqc5041[address] [place], [place] [address]Dr. Shahbaz Rogel Chloride [Moles/Vol] 103 mmol/L Normal 98-107 [facility] Comment on above: Performed By: #### B [employer], CMP ####[facility] Jhokirwfww7959[address] [place], [place] [address]Dr. Shahbaz Rogel CO2 [Moles/Vol] 25.4 mmol/L Normal 22.0-30.0 [facility] Comment on above: Performed By: #### B [employer], CMP ####[facility] Alwcngxoxb0694[address] [place], [place] [address]Dr. Shahbaz Rogel Creatinine [Mass/Vol] 1.48 mg/dL Critically high 0.52-1.04 [facility] Comment on above: Performed By: #### B [employer], CMP ####[facility] Rzaqdrrvuc4041[address] [place], [place] [address]Dr. Shahbaz Rogel EGFR-AF SERBIAN 44 mL/min/1.73m2 Critically low >=60 [facility] Comment on above: Performed By: #### B [employer], CMP ####[facility] Dwqbwvgywa4043[address] [place], [place] [address]Dr. Shahbaz Rogel EGFR-NON AF SERBIAN 36 mL/min/1.73m2 Critically low >=60 [facility] Comment on above: Performed By: #### B [employer], CMP ####[facility] Hbrjsglbtd2275[address] [place], [place] [address]Dr. Shahbaz Juan F Globulin (S) [Mass/Vol] 3.7 g/dL Normal [facility] Comment on above: Performed By: #### B [employer], CMP ####[facility] Iggxyuomed744[address] [place], [place] [address]Dr. Shahbaz Juan F Glucose [Mass/Vol] 203 mg/dL Critically high 74-106 [facility] Comment on above: Performed By: #### B [employer], CMP ####[facility] Pwpzhdkdwm95[address] [place], [place] [address]Dr. Shahbaz Rogel Potassium [Moles/Vol] 3.5 mmol/L Normal 3.4-5.0 [facility] Comment on above: Performed By: #### B [employer], CMP ####[facility] Ralfsmxbtv5347[address] [place], [place] [address]Dr. Shahbaz Rogel Protein [Mass/Vol] 7.2 g/dL Normal 6.1-8.2 [facility] Comment on above: Performed By: #### B [employer], CMP ####[facility] Dtydunbhiy215[address] [place], [place] [address]Dr. Shahbaz Rogel Sodium [Moles/Vol] 139 mmol/L Normal 137-145 [facility] Comment on above: Performed By: #### B [employer], CMP ####[facility] Wtoxusobxa4246[address] [place], [place] [address]Dr. Shahbaz Juan F Urea nitrogen [Mass/Vol] 17.0 mg/dL Normal 7.0-18.0 [facility] Comment on above: Performed By: #### B [employer], CMP ####[facility] Zwhlyvnngl[address] [place], [place] [address]Dr. Shahbaz Rogel Urea nitrogen/Creatinine [Mass ratio] 11.5 mg/mg Normal [facility] Comment on above: Performed By: #### B [employer]ER, CMP ####[facility] Qadldfsgfu80[address] [place], [place] [address]Dr. Shahbaz Juan F BNPon 01-18-2022 Natriuretic peptide B (Bld) [Mass/Vol] 55.0 pg/mL Normal <=900.0 [facility] Comment on above: Performed By: #### C MP, BNP, HSTROPN ####[facility] Aaauxwuzpb[address] [place], [place] [address]Dr. Lilajarrod Juan F CBC W MANUAL DIFFon 01-19-20 22 ATYPICAL LYMPH # 0.12 103/ul Normal [facility] Comment on above: Performed By: #### C BCMAN ####[facility] O[address]qvtcofh[address] [place], [place] [address]Dr. Shahbaz Rogel ATYPICAL LYMPH % 2 % Normal [facility] Comment on above: Performed By: #### C BCMAN ####[facility] Ludbuwtytw7186[address] [place], [place] [address]Dr. Shahbaz Rogel BAND # 0.0 103/ul Normal 0.0-0.3 [facility] Comment on above: Performed By: #### C BCBRICE ####[facility] Ydhnxbxsar2837 [place] [phone]. Shahbaz Rogel BAND % 0 % Normal 0-5 [facility] Comment on above: Performed By: #### C BCBRICE ####[facility] Vqojaonked04[address] [place] [phone]. Yijarrod Rogel BASOM # 0.00 103/ul Normal 0.00-0.10 [facility] Comment on above: Performed By: #### C BCBRICE ####[facility] Oncbbeongq7032 [place] [address]Dr. Shahbaz Rogel BASOM % 0.0 % Critically low 0.2-2.0 [facility] Comment on above: Performed By: #### C CAIN ####[facility] Unyflgpepf[address] [place], [place] [address]Dr. Yijarrod Rogel BLAST # Normal [facility] Comment on above: Performed By: #### C BCBRICE ####[facility] Gtunjnkqqd[address] [place], [place] [address]Dr. Yijarrod Rogel BLAST % Normal [facility] Comment on above: Performed By: #### C CAIN ####[facility] U[address]hjzlfrk[address] [place], [place] [address]Dr. Shahbaz Rogel CORRECTED WBC Normal 4.0-11.0 [facility] Comment on above: Performed By: #### C CAIN ####[facility] [address]clorwdtv7[address] [place], [place] [address]Dr. Yijarrod Rogel EOS # 0.25 103/ul Normal 0.00-0.70 [facility] Comment on above: Performed By: #### C BCBRICE ####[facility] [address]hklxxuwy67[address] [place], [place] [address]Dr. Shahbaz Rogel EOS% 4.0 % Normal 0.9-7.0 [facility] Comment on above: Performed By: #### C BCBRICE ####[facility] Zkbtuvdlej[address] [place], [place] [address]Dr. Yilan Rogel HCT 46.8 % Normal 36.0-48.0 [facility] Comment on above: Performed By: #### Cheri BARLOW ####[facility] [address]ib[address]rok[address] [place], [place] [address]Ea. Shahbaz Rogel HGB 14.9 g/dl Normal 12.0-16.0 [facility] Comment on above: Performed By: #### Cheri BARLOW ####[facility] Swquzrwupx39[address] [place], [place] [address]Kd. Shahbaz Rogel LYMPHM # 0.68 103/ul Critically low 1.20-3.80 [facility] Comment on above: Performed By: #### Cheri BARLOW ####[facility] [address]uzahvrdm[address] [place] [id number]. Shahbaz Rogel LYMPHM% 11.0 % Critically low 20.5-60.0 [facility] Comment on above: Performed By: #### Cheri BARLOW ####[facility] Qdjbkiwyqz1843 [place] [id number]. Shahbaz Rogel MCH 27.6 pg Normal 26.7-34.0 [facility] Comment on above: Performed By: #### Cheri BARLOW ####[facility] Jikrunelon6984 [place] [phone]. Shahbaz Rogel MCHC 31.8 g/dl Normal 29.9-35.2 [facility] Comment on above: Performed By: #### Cheri BARLOW ####[facility] Majjbzawye2306 [place] [id number]. Shahbaz Rogel MCV 86.8 fL Normal 81.0-99.0 [facility] Comment on above: Performed By: #### Cheri BARLOW ####[facility] Kntdrbfait[address] [place], [place] [address]Fx. Shahbaz Rogel METAMYELOCYTE # Normal [facility] Comment on above: Performed By: #### Cheri BARLOW ####[facility] Ekoecydndu29[address] [place] [phone]. Shahbaz Rogel METAMYELOCYTE % Normal [facility] Comment on above: Performed By: #### Cheri BARLOW ####[facility] Ftcknrhuqm0628 [place] [id number]. Shahbaz Rogel MONOM# 0.19 103/ul Critically low 0.30-0.80 [facility] Comment on above: Performed By: #### C CAIN ####[facility] Yolwkizvdz3537 [place] [id number]. Shahbaz Rogel MONOM% 3.0 % Normal 1.7-12.0 [facility] Comment on above: Performed By: #### C CAIN ####[facility] Qgmeikeult2529 [place] [phone]. Shahbaz Rogel MPV 9.6 fL Normal 9.5-13.5 [facility] Comment on above: Performed By: #### C CAIN ####[facility] Vhrvdwqpdl[address] [place], [place] [address]Dr. Shahbaz Rogel MYELOCYTE # Normal [facility] Comment on above: Performed By: #### C CAIN ####[facility] Rgpjogmplq[address] [place], [place] [address]Dr. Shahbaz Rogel MYELOCYTE % Normal [facility] Comment on above: Performed By: #### C CAIN ####[facility] [address]qmynwkg66[address] [place], [place] [address]Dr. Shahbaz Rogel NRBC Normal [facility] Comment on above: Performed By: #### C CAIN ####[facility] Wnumqhazqy76[address] [place], [place] [address]Dr. Shahbaz Rogel PLT 203 103/ul Normal 150-450 [facility] Comment on above: Performed By: #### C CAIN ####[facility] Gusbjsmnzy6616 [place] [phone]. Shahbaz Rogel RBC 5.39 106/ul Normal 4.20-5.40 [facility] Comment on above: Performed By: #### C CAIN ####[facility] Pvmrnpfcix57[address] [place], [place] [address]Dr. Shahbaz Rogel RDW 13.7 % Normal 11.0-15.0 [facility] Comment on above: Performed By: #### C CAIN ####[facility] Xrjgkzmbej023[address] [place], [place] [address]Dr. Shahbaz Rogel SEG # 4.96 103/ul Normal 1.40-6.50 [facility] Comment on above: Performed By: #### C BCMAN ####[facility] Mnpfqxqpvc7586 [place] [phone]. Shahbaz Rogel SEG % 80.0 % Critically high 43.0-75.0 [facility] Comment on above: Performed By: #### Cheri BCMAN ####[facility] Fuxfectfxt6234 [place] [id number]. Shahbaz Rogel WBC 6.2 103/ul Normal 4.0-11.0 [facility] Comment on above: Performed By: #### Cheri BUCHANANMAN ####[facility] Whlpvwtfni0317 [place] [phone] Rogel CULTURE BLOODon 01-18-2022 Microscopic examination of blood, culture Culture Observations: No growth at 5 days. Normal [facility] Comment on above: Performed By: #### B LDCX2 ####[facility] Bcnvsqrshw[address] [place], [place] [address]Dr. Shahbaz Rogel Microscopic examination of blood, culture Culture Observations: No growth at 5 days Normal [facility] Comment on above: Performed By: #### B LDCX1 ####[facility] Jnyehoktmc[address] [place], [place] [address]Dr. Shahbaz Rogel Covid-19 PCR (CVDTB)on 12-31 SARS-CoV-2 (COVID-19) RNA PAVAN+probe Ql (Unsp spec) Not detected Normal NOT DETECTED [facility] Comment on above: Result Comment: This test is not yet approved or cleared by the [place] FDA. When there are no FDA-approved or cleared tests available, and other criteria are met, FDA can make tests available under an emergency access mechanism called an Emergency Use Authorization (EUA). The EUA for this test is supported by the [place] of Health and Human Service's (HHS's) declaration [...] with SARS-CoV-2. Performed By: #### C VDTBH ####[facility] Kozfofsqrq[address] [place], [place] [address]Dr. Formerly Named [facility] D-DIMERon 01-18-2022 D-DIMER 0.29 mg/L FEU Normal 0.19-0.50 [facility] Comment on above: Performed By: #### D DIM ####[facility] Zormirhoek58[address] [place], [place] [address]Dr. Formerly Named [facility] D-DIMER COMMENTS SEE BELOW Normal [facility] Comment on above: Result Comment: Incr [...] generalized hospitalization. Performed By: #### D DIM ####[facility] Qypngpxebp17[address] [place], [place] [address]Dr. Formerly Named [facility] INFLUENZA A AND B AGon 01-18 INFLUANEGH SEE BELOW Normal [facility] Comment on above: Result Comment: Nega tive for Flu A protein angiten. Infection due to Flu A cannot be ruled out. Flu A angiten in the sample may be below the detection limit of the test. Performed By: #### I NFLUAB ####[facility] Hjctouriva[address] [place], [place] [address]Dr. Formerly Named [facility] INFLUBNEGH SEE BELOW Normal [facility] Comment on above: Result Comment: Nega tive for Flu B protein antigen. Infection due to Flu B cannot be ruled out. Flu B antigen in the sample may be below the detection limit of the test. Performed By: #### I NFLUAB ####[facility] Nfnvgnihwr7235 [place] [address]Dr. Shahbaz Rogel INFLUENZA A AG Negative Normal NEGATIVE SEE COMMENT [facility] Comment on above: Performed By: #### I NFLUAB ####[facility] Tibzziugkc8972 [place] [address]Dr. Shahbaz Rogel INFLUENZA B AG Negative Normal NEGATIVE SEE COMMENT [facility] Comment on above: Performed By: #### I NFLUAB ####[facility] Dgbeslruiw198[address] [place], [place] [address]Dr. Shahbaz Rogel INTERNAL CONTROLS Within Normal Limits Normal Wi thin Normal Limits [facility] Comment on above: Performed By: #### I NFLUAB ####[facility] Nprwjlswdc08[address] [place], [place] [address]Dr. Shahbaz Rogel LACTATE/LACTIC ACIDon 2021 Lactate [Moles/Vol] 1.0 mmol/L Normal 0.7-2.0 [facility] Comment on above: Performed By: #### L ACT ####[facility] Duuyrpbmsy5[address] [place], [place] [address]Dr. Shahbaz Rogel PROF 14(COMP METB)on 022 Albumin [Mass/Vol] 3.8 g/dL Normal 3.4-5.0 [facility] Comment on above: Performed By: #### C MP, BNP, HSTROPN ####[facility] Qbucvehiby3[address] [place], [place] [address]Dr. Shahbaz Rogel Albumin/Globulin [Mass ratio] 1.0 {ratio} Normal [facility] Comment on above: Performed By: #### C MP, BNP, HSTROPN ####[facility] Qtwojbgfpv7[address] [place], [place] [address]Dr. Shahbaz Rogel ALP [Catalytic activity/Vol] 116 U/L Normal 46-116 [facility] Comment on above: Performed By: #### C MP, BNP, HSTROPN ####[facility] Fxykpfipac[address] [place], [place] [address]Dr. Shahbaz Rogel ALT [Catalytic activity/Vol] 16 U/L Normal 14-59 [facility] Comment on above: Performed By: #### C MP, BNP, HSTROPN ####[facility] Szqimcgybe7809 [place] [address]Dr. Shahbaz Rogel Anion gap [Moles/Vol] 9.4 mmol/L Normal [facility] Comment on above: Performed By: #### C MP, BNP, HSTROPN ####[facility] Milmxgnpsf7388 [place] [address]Dr. Shahbaz Rogel AST [Catalytic activity/Vol] 19 U/L Normal 15-37 [facility] Comment on above: Performed By: #### C MP, BNP, HSTROPN ####[facility] Bazmluvcrf[address] [place], [place] [address]Dr. Shahbaz Rogel Bilirubin [Mass/Vol] 0.5 mg/dL Normal 0.2-1.3 [facility] Comment on above: Performed By: #### C MP, BNP, HSTROPN ####[facility] Tcjgnzjsdd[address] [place], [place] [address]Dr. Shahbaz Rogel Calcium [Mass/Vol] 8.9 mg/dL Normal 8.5-10.1 [facility] Comment on above: Performed By: #### C MP, BNP, HSTROPN ####[facility] Dnvufuxbpx0566 [place] [address]Dr. Shahbaz Rogel Chloride [Moles/Vol] 104 mmol/L Normal 98-107 [facility] Comment on above: Performed By: #### C MP, BNP, HSTROPN ####[facility] Vnnmwwsmpg3[address] [place], [place] [address]Dr. Shahbaz Rogel CO2 [Moles/Vol] 27.2 mmol/L Normal 22.0-30.0 [facility] Comment on above: Performed By: #### C MP, BNP, HSTROPN ####[facility] [address]juhpfjnjk7[address] [place] [address]Dr. Shahbaz Rogel Creatinine [Mass/Vol] 0.99 mg/dL Normal 0.52-1.04 [facility] Comment on above: Performed By: #### C MP, BNP, HSTROPN ####[facility] Ddkqnfkgvp3531 [place] [address]Dr. Shahbaz Rogel EGFR-AF SERBIAN >60 Normal >=60 [facility] Comment on above: Performed By: #### C MP, BNP, HSTROPN ####[facility] Luilztsatn9[address] [place] [address]Dr. Shahbaz Rogel EGFR-NON AF SERBIAN 58 mL/min/1.73m2 Critically low >=60 [facility] Comment on above: Performed By: #### C MP, BNP, HSTROPN ####[facility] Jhlydklsec7757 [place] [address]Dr. Shahbaz Rogel Globulin (S) [Mass/Vol] 3.8 g/dL Normal [facility] Comment on above: Performed By: #### C MP, BNP, HSTROPN ####[facility] Scuvvhckhd6[address] [place], [place] [address]Dr. Shahbaz Rogel Glucose [Mass/Vol] 104 mg/dL Normal 74-106 [facility] Comment on above: Performed By: #### C MP, BNP, HSTROPN ####[facility] Taetfshzfq[address] [place], [place] [address]Dr. Shahbaz Rogel Potassium [Moles/Vol] 3.6 mmol/L Normal 3.4-5.0 [facility] Comment on above: Performed By: #### C MP, BNP, HSTROPN ####[facility] Htntuhkpjm[address] [place], [place] [address]Dr. Shahbaz Rogel Protein [Mass/Vol] 7.6 g/dL Normal 6.1-8.2 [facility] Comment on above: Performed By: #### C MP, BNP, HSTROPN ####[facility] [address]jjorvbfn[address] [place], [place] [address]Dr. Shahbaz Rogel Sodium [Moles/Vol] 137 mmol/L Normal 137-145 [facility] Comment on above: Performed By: #### C MP, BNP, HSTROPN ####[facility] [address] [place] [address]Vk. Shahbaz Rogel Urea nitrogen [Mass/Vol] 9.0 mg/dL Normal 7.0-18.0 [facility] Comment on above: Performed By: #### C MP, BNP, HSTROPN ####[facility] [address]xudvt[address]qg37[address] [place], [place] [address]Gu. Shahbaz Rogel Urea nitrogen/Creatinine [Mass ratio] 9.1 mg/mg Normal [facility] Comment on above: Performed By: #### C MP, BNP, HSTROPN ####[facility] C[address]he[address]qgrj52[address] [place], [place] [address]Cz. Shahbaz Rogel TROPONIN, HIGH SENSITIVITYon 01-18-2022 HSTROP 6.4 pg/mL Normal 4.0-35.5 [facility] Comment on above: Result Comment: CUT- OFF POINTS HAVE BEEN ESTABLISHED BASED ON THE FOURTH UNIVERSAL DEFINITIONS OF MYOCARDIALINFARCTION. THE UPPER REFERENCE LIMIT (URL) OF TROPONIN, DEFINED THE 99TH PERCENTILE OFcTnI DISTRIBUTION IN A REFERENCE POPULATION, HAS BEEN CONFIRMED THE DECISION THRESHOLDFOR ME DIAGNOSIS. Performed By: #### C MP, BNP, HSTROPN ####[facility] [address]kaqbgf4[address] [place] [id number]. Shahbaz Rogel XR CHEST 2 Von 01-18-2022 XR CHEST 2 V Normal [facility] URINALYSIS REFLEXon 04-04-20 20 Appearance (U) CLEAR Normal CLEAR [facility] Comment on above: Order Comment: No: D o not add to previous draw Performed By: #### 1 0070, 26715, 30530, 40332, 60901, 35620 #### [facility] [address] [place] [address], [place] Bilirubin [Mass/Vol] Negative Normal NEGATIVE [facility] Comment on above: Order Comment: No: D o not add to previous draw Performed By: #### 1 0070, 15241, 39509, 76572, 62696, 70053 #### [facility] [address] [place] [address], [place] BLOOD Negative Normal NEGATIVE [facility] Comment on above: Order Comment: No: D o not add to previous draw Performed By: #### 1 0070, 06097, 34810, 97662, 63389, 80271 #### [facility] [address] [place] [address], [place] Color (U) YELLOW Normal YELLOW [facility] Comment on above: Order Comment: No: D o not add to previous draw Performed By: #### 1 0070, 77833, 44769, 07983, 35903, 58199 #### [facility] [address] [place] [address], [place] Glucose [Mass/Vol] Negative Normal NEGATIVE The [facility] Comment on above: Order Comment: No: D o not add to previous draw Performed By: #### 1 0070, 47679, 55704, 72732, 66763, 00813 #### [facility] [address] [place] [address], [place] KETONE Negative Normal NEGATIVE [facility] Comment on above: Order Comment: No: D o not add to previous draw Performed By: #### 1 0070, 51990, 43140, 33038, 96771, 98260 #### [facility] [address] [place] [address], [place] LEUK ELIU Negative Normal NEGATIVE [facility] Comment on above: Order Comment: No: D o not add to previous draw Performed By: #### 1 0070, 14731, 07300, 04679, 88201, 45824 #### [facility] [address] [place] [address], [place] MICRO NOT DONE Normal [facility] Comment on above: Order Comment: No: D o not add to previous draw Result Comment: Micr oscopics not performed on urines with negative chemical reactions unless requested in original order Performed By: #### 1 0070, 36453, 30955, 22362, 14575, 61859 #### [facility] [address] [place] [address], [place] Nitrite Ql (U) Negative Normal NEGATIVE [facility] Comment on above: Order Comment: No: D o not add to previous draw Performed By: #### 1 0070, 86958, 21198, 93521, 23979, 61862 #### [facility] [address] [place] [address], [facility] pH (Bld) 5.0 Normal 5.0-8.0 [facility] Comment on above: Order Comment: No: D o not add to previous draw Performed By: #### 1 0070, 09798, 92851, 06247, 46977, 34563 #### [facility] [address] [facility] [place] [address], [facility] Protein (U) [Mass/Vol] Negative Normal NEGATIVE [facility] Comment on above: Order Comment: No: D o not add to previous draw Performed By: #### 1 0070, 99507, 90206, 05311, 56690, 83331 #### [facility] [address] [facility] [place] [address], [facility] SPEC GRAV 1.012 Low 1.015-1.02 0 [facility] Comment on above: Order Comment: No: D o not add to previous draw Performed By: #### 1 0070, 51711, 43893, 00543, 94937, 79276 #### [facility] [address] [facility] [place] [address], [facility] BASIC METABOLIC PANELon 07-0 -2019 Calcium [Mass/Vol] 8.4 mg/dL Low 8.6-10.3 [facility] Comment on above: Order Comment: No: D o not add to previous draw Performed By: #### 1 0070, 55332, 81236, 74379, 20042, 63231 #### [facility] [address] [place] [address], [facility] Chloride [Moles/Vol] 101 mmol/L Normal 98-107 [facility] Comment on above: Order Comment: No: D o not add to previous draw Performed By: #### 1 0070, 61511, 65952, 97829, 54144, 70338 #### [facility] [address] [place] [address], [facility] CO2 [Moles/Vol] 29 mmol/L Normal 21-31 [facility] Comment on above: Order Comment: No: D o not add to previous draw Performed By: #### 1 0070, 17478, 62738, 66615, 31617, 57905 #### [facility] [address] [place] [address], [facility] Creatinine [Mass/Vol] 0.79 mg/dL Normal 0.60-1.20 [facility] Comment on above: Order Comment: No: D o not add to previous draw Performed By: #### 1 0070, 82687, 83142, 90806, 82677, 25345 #### [facility] [address] [place] [address], [place] GFR/1.73 sq M predicted among blacks MDRD (S/P/Bld) [Vol rate/Area] mL/min/{1.73_m2} Normal >60 [facility] Comment on above: Order Comment: No: D o not add to previous draw Performed By: #### 1 0070, 32576, 37828, 46188, 01955, 84452 #### [facility] [address] [place] [address], [place] GFR/1.73 sq M predicted among non-blacks MDRD (S/P/Bld) [Vol rate/Area] mL/min/{1.73_m2} Normal >60 [facility] Comment on above: Order Comment: No: D o not add to previous draw Performed By: #### 1 0070, 76065, 76727, 33494, 48249, 18295 #### [facility] [address] [place] [address], [place] Glucose [Mass/Vol] 91 mg/dL Normal 70-100 [facility] Comment on above: Order Comment: No: D o not add to previous draw Performed By: #### 1 0070, 73401, 89515, 20515, 36674, 47106 #### [facility] [address] [place] [address], [facility] Potassium [Moles/Vol] 3.9 mmol/L Normal 3.5-5.1 [facility] Comment on above: Order Comment: No: D o not add to previous draw Performed By: #### 1 0070, 34396, 78921, 53358, 60208, 33790 #### [facility] [address] Sodium [Moles/Vol] 133 mmol/L Low 136-145 [facility] Comment on above: Order Comment: No: D o not add to previous draw Performed By: #### 1 0070, 84395, 05496, 26249, 38012, 99774 #### [facility] [address] Urea nitrogen [Mass/Vol] 10 mg/dL Normal 7-25 [facility] Comment on above: Order Comment: No: D o not add to previous draw Performed By: #### 1 0070, 70937, 96573, 54721, 76091, 42279 #### [facility] [address] [facility]. [address] CBC W/DIFFon 04-02-2020 ABS BASOPHILS 0.0 10*3/uL Normal 0.0-0.2 [facility] Comment on above: Order Comment: No: D o not add to previous draw Performed By: #### 1 0070, 60891, 72351, 25428, 88541, 52273 #### [facility] [address] [place] [address], [facility] ABS IMM GRANS 0.0 10*3/uL Normal 0.0-0.2 [facility] Comment on above: Order Comment: No: D o not add to previous draw Performed By: #### 1 0070, 01898, 28536, 38475, 48811, 39797 #### [facility] [address] [place] [address], [facility] ABS NEUTROPHILS 4.5 10*3/uL Normal 1.6-7.6 [facility] Comment on above: Order Comment: No: D o not add to previous draw Performed By: #### 1 0070, 54678, 33507, 10219, 49566, 09373 #### [facility] [address] [facility] [place] [place] [address], [facility] Basophils/100 WBC (Bld) 0.2 % Normal 0.0-1.0 [facility] Comment on above: Order Comment: No: D o not add to previous draw Performed By: #### 1 0070, 15323, 90405, 50650, 21764, 82552 #### [facility] [address] [facility] [place] [address], [facility] Eosinophils (Bld) [#/Vol] 0.2 10*3/uL Normal 0.0-0.5 [facility] Comment on above: Order Comment: No: D o not add to previous draw Performed By: #### 1 0070, 20445, 82035, 43190, 95722, 24961 #### [facility] [address] [facility] [place] [address], [facility] Eosinophils/100 WBC (Bld) 3.6 % Normal 0.0-6.0 [facility] Comment on above: Order Comment: No: D o not add to previous draw Performed By: #### 1 0070, 29673, 45953, 54715, 12704, 15534 #### [facility] [address] [place] [address], [facility] Erythrocyte distribution width (RBC) [Ratio] 12.7 % Normal 11.5-15.0 [facility] Comment on above: Order Comment: No: D o not add to previous draw Performed By: #### 1 0070, 10630, 23505, 87858, 76197, 74186 #### [facility] [address] [place] [address], [facility] Hematocrit (Bld) [Volume fraction] 42.9 % Normal 36.0-45.0 [facility] Comment on above: Order Comment: No: D o not add to previous draw Performed By: #### 1 0070, 59593, 43833, 46953, 06736, 23275 #### [facility] [address] [facility] [address] Hemoglobin (Bld) [Mass/Vol] 13.5 g/dL Normal 12.0-15.0 [facility] Comment on above: Order Comment: No: D o not add to previous draw Performed By: #### 1 0070, 46964, 03668, 47142, 56808, 87656 #### [facility] [address] [facility]. [address] IMMATURE GRANS 0.3 % Normal 0.0-1.0 [facility] Comment on above: Order Comment: No: D o not add to previous draw Performed By: #### 1 0070, 54896, 58979, 92486, 53511, 50901 #### [facility] [address] [facility] [place] [place] [address], [facility] Lymphocytes (Bld) [#/Vol] 1.1 10*3/uL Low 1.2-4.0 [facility] Comment on above: Order Comment: No: D o not add to previous draw Performed By: #### 1 0070, 20527, 67038, 59818, 64618, 23913 #### [facility] [address] [facility] [place] [address], [facility] Lymphocytes/100 WBC (Bld) 18.0 % Low 20.0-45.0 [facility] Comment on above: Order Comment: No: D o not add to previous draw Performed By: #### 1 0070, 55141, 76635, 73495, 83535, 21993 #### [facility] [address] [facility] [facility] MCH (RBC) [Entitic mass] 27.4 pg Normal 27.0-33.0 [facility] Comment on above: Order Comment: No: D o not add to previous draw Performed By: #### 1 0070, 61821, 68880, 11099, 78078, 60201 #### [facility] [address] [facility] MCHC (RBC) [Mass/Vol] 31.5 g/dL Low 32.0-35.0 [facility] Comment on above: Order Comment: No: D o not add to previous draw Performed By: #### 1 0070, 56275, 14035, 23911, 30124, 93056 #### [facility] [address] MCV (RBC) [Entitic vol] 87.0 fL Normal 82.0-98.0 [facility] Comment on above: Order Comment: No: D o not add to previous draw Performed By: #### 1 0070, 19904, 57045, 71907, 72320, 15355 #### [facility] [address] [place] [address], [facility] Monocytes (Bld) [#/Vol] 0.3 10*3/uL Normal 0.1-1.0 [facility] Comment on above: Order Comment: No: D o not add to previous draw Performed By: #### 1 0070, 44885, 16207, 13587, 41363, 45463 #### [facility] [address] MONOS 5.5 % Normal 5.0-12.0 [facility] Comment on above: Order Comment: No: D o not add to previous draw Performed By: #### 1 0070, 11484, 60609, 01236, 86480, 96796 #### [facility] [address] [place] [address], [facility] Neutrophils/100 WBC (Bld) 72.4 % High 40.0-72.0 [facility] Comment on above: Order Comment: No: D o not add to previous draw Performed By: #### 1 0070, 77254, 06746, 32567, 80153, 68549 #### [facility] [address] [place] [address], [place] Nucleated RBC/100 WBC (Bld) [Ratio] 0 % Normal 0-0 [facility] Comment on above: Order Comment: No: D o not add to previous draw Performed By: #### 1 0070, 83633, 18851, 96468, 78543, 50005 #### [facility] [address] [place] [address], [facility] PLAT CNT 264 10*3/uL Normal 150-400 [facility] Comment on above: Order Comment: No: D o not add to previous draw Performed By: #### 1 0070, 83277, 14050, 27534, 02428, 59275 #### [facility] [address] [place] [id number], [facility] RBC (Bld) [#/Vol] 4.93 10*6/uL Normal 3.80-5.00 [facility] Comment on above: Order Comment: No: D o not add to previous draw Performed By: #### 1 0070, 30762, 86195, 00924, 12994, 84521 #### [facility] [address] [place] [address], [place] WBC (Bld) [#/Vol] 6.17 10*3/uL Normal 4.00-10.60 [facility] Comment on above: Order Comment: No: D o not add to previous draw Performed By: #### 1 0070, 21903, 73243, 25749, 76869, 55431 #### [facility] [address] [place] [address], [facility] MAGNESIUM BLOODon 04-02-2020 Magnesium [Mass/Vol] 2.0 mg/dL Normal 1.9-2.7 [facility] Comment on above: Order Comment: No: D o not add to previous draw Performed By: #### 1 0070, 98090, 15151, 89513, 54173, 99800 #### [facility] [address] [place] [address], [facility] PHOSPHORUS BLOODon 0 Phosphate [Mass/Vol] 3.1 mg/dL Normal 2.5-5.0 [facility] Comment on above: Order Comment: No: D o not add to previous draw Performed By: #### 1 0070, 67267, 40228, 38955, 83589, 64755 #### [facility] [address] POC GLUCOSE LABon 04-02-2020 Glucose [Mass/Vol] 134 mg/dL High 70-100 [facility] Comment on above: Performed By: #### 1 0070, 11802, 26752, 46739, 75615, 92232 #### [facility] [address] [facility] [address] UFH HEPARIN ASSAYon 04-02-20 20 UNFRACTIONATED HEPARIN 0.91 IU/mL Critically high 0.30-0.7 0 [facility] Comment on above: Result Comment: Violet roxaban and Apixaban will interfere with the anti Xa assay used to monitor UFH and LMWH. RESULTS CHECKED AND CALLED. ACCURATELY READ BACK BY LYNN POLANCO, COLLEEN @ [phone] Performed By: #### 1 0070, 09754, 20198, 30261, 85950, 05462 #### [facility] [address] [place] [address], [facility] ALBUMIN BLOODon 04-01-2020 Albumin [Mass/Vol] 3.0 g/dL Low 3.5-5.7 [facility] Comment on above: Performed By: #### 1 0070, 39505, 14910, 29911, 83992, 48018 #### [facility] [address] [place] [address], [facility] BASIC METABOLIC PANELon 07-0 Calcium [Mass/Vol] 8.1 mg/dL Low 8.6-10.3 [facility] Comment on above: Order Comment: No: D o not add to previous draw Performed By: #### 1 0070, 47763, 75687, 65267, 41620, 03599 #### [facility] [address] [place] [address], [facility] Chloride [Moles/Vol] 105 mmol/L Normal 98-107 [facility] Comment on above: Order Comment: No: D o not add to previous draw Performed By: #### 1 0070, 00838, 74755, 96805, 80524, 85780 #### [facility] [address] [facility] [place] [address], [facility] CO2 [Moles/Vol] 26 mmol/L Normal 21-31 [facility] Comment on above: Order Comment: No: D o not add to previous draw Performed By: #### 1 0070, 58569, 65411, 04923, 14377, 38447 #### [facility] [address] [facility] [place] [address], [facility] Creatinine [Mass/Vol] 0.65 mg/dL Normal 0.60-1.20 [facility] Comment on above: Order Comment: No: D o not add to previous draw Performed By: #### 1 0070, 54670, 62891, 23078, 92113, 81301 #### [facility] [address] [place] [address], [facility] GFR/1.73 sq M predicted among blacks MDRD (S/P/Bld) [Vol rate/Area] mL/min/{1.73_m2} Normal >60 [facility] Comment on above: Order Comment: No: D o not add to previous draw Performed By: #### 1 0070, 55934, 98209, 77978, 52250, 70417 #### [facility] [address] [place] [address], [facility] GFR/1.73 sq M predicted among non-blacks MDRD (S/P/Bld) [Vol rate/Area] mL/min/{1.73_m2} Normal >60 [facility] Comment on above: Order Comment: No: D o not add to previous draw Performed By: #### 1 0070, 26837, 97501, 57145, 95437, 03528 #### [facility] [address] [place] [address], [place] Glucose [Mass/Vol] 87 mg/dL Normal 70-100 [facility] Comment on above: Order Comment: No: D o not add to previous draw Performed By: #### 1 0070, 82829, 28331, 41434, 56409, 63563 #### [facility] [address] [place] [address], [place] Potassium [Moles/Vol] 4.3 mmol/L Normal 3.5-5.1 [facility] Comment on above: Order Comment: No: D o not add to previous draw Performed By: #### 1 0070, 37800, 52955, 78755, 90935, 68645 #### [facility] [address] [place] [address], [place] Sodium [Moles/Vol] 136 mmol/L Normal 136-145 [facility] Comment on above: Order Comment: No: D o not add to previous draw Performed By: #### 1 0070, 24393, 57308, 37349, 67438, 35859 #### [facility] [address] [place] [address], [place] Urea nitrogen [Mass/Vol] 8 mg/dL Normal 7-25 [facility] Comment on above: Order Comment: No: D o not add to previous draw Performed By: #### 1 0070, 55088, 99686, 70410, 30002, 04674 #### [facility] [address] [place] [address], [facility] CBC W/DIFFon 04-01-2020 ABS BASOPHILS 0.0 10*3/uL Normal 0.0-0.2 [facility] Comment on above: Order Comment: No: D o not add to previous draw Performed By: #### 1 0070, 63592, 56130, 92224, 09251, 26035 #### [facility] [address] [place] [address], [facility] ABS IMM GRANS 0.0 10*3/uL Normal 0.0-0.2 [facility] Comment on above: Order Comment: No: D o not add to previous draw Performed By: #### 1 0070, 81693, 72052, 80178, 67215, 05940 #### [facility] [address] ABS NEUTROPHILS 3.4 10*3/uL Normal 1.6-7.6 [facility] Comment on above: Order Comment: No: D o not add to previous draw Performed By: #### 1 0070, 43371, 20514, 96485, 33912, 07460 #### [facility] [address] [place] [address], [facility] Basophils/100 WBC (Bld) 0.2 % Normal 0.0-1.0 [facility] Comment on above: Order Comment: No: D o not add to previous draw Performed By: #### 1 0070, 09944, 17641, 20378, 22494, 47896 #### [facility] [address] [place] [address], [facility] Eosinophils (Bld) [#/Vol] 0.1 10*3/uL Normal 0.0-0.5 [facility] Comment on above: Order Comment: No: D o not add to previous draw Performed By: #### 1 0070, 73982, 03889, 87989, 88751, 90460 #### [facility] [address] [place] [address], [facility] Eosinophils/100 WBC (Bld) 2.6 % Normal 0.0-6.0 [facility] Comment on above: Order Comment: No: D o not add to previous draw Performed By: #### 1 0070, 99317, 23306, 34983, 82671, 13705 #### [facility] [address] [facility] [place] [address] [place] [address] Erythrocyte distribution width (RBC) [Ratio] 13.0 % Normal 11.5-15.0 [facility] Comment on above: Order Comment: No: D o not add to previous draw Performed By: #### 1 0070, 66500, 42463, 42741, 19918, 23497 #### [facility] [address] [facility] [address] Hematocrit (Bld) [Volume fraction] 40.9 % Normal 36.0-45.0 [facility] Comment on above: Order Comment: No: D o not add to previous draw Performed By: #### 1 0070, 93521, 07330, 79109, 26624, 77594 #### [facility] [address] [facility] [place] [address], [facility] Hemoglobin (Bld) [Mass/Vol] 12.8 g/dL Normal 12.0-15.0 [facility] Comment on above: Order Comment: No: D o not add to previous draw Performed By: #### 1 0070, 33750, 02286, 85930, 95101, 52043 #### [facility] [address] [facility] [place] [address], [facility] IMMATURE GRANS 0.6 % Normal 0.0-1.0 [facility] Comment on above: Order Comment: No: D o not add to previous draw Performed By: #### 1 0070, 07549, 53255, 22334, 57175, 47783 #### [facility] [address] [place] [address], [facility] Lymphocytes (Bld) [#/Vol] 1.2 10*3/uL Normal 1.2-4.0 [facility] Comment on above: Order Comment: No: D o not add to previous draw Performed By: #### 1 0070, 50219, 35565, 18021, 84008, 36095 #### [facility] [address] [place] [address], [facility] Lymphocytes/100 WBC (Bld) 23.7 % Normal 20.0-45.0 [facility] Comment on above: Order Comment: No: D o not add to previous draw Performed By: #### 1 0070, 37293, 16540, 71915, 14377, 88188 #### [facility] [address] [place] [address], [facility] MCH (RBC) [Entitic mass] 27.4 pg Normal 27.0-33.0 [facility] Comment on above: Order Comment: No: D o not add to previous draw Performed By: #### 1 0070, 40792, 51245, 06397, 25751, 72092 #### [facility] [address] [place] [address], [facility] MCHC (RBC) [Mass/Vol] 31.3 g/dL Low 32.0-35.0 [facility] Comment on above: Order Comment: No: D o not add to previous draw Performed By: #### 1 0070, 84197, 68664, 81253, 15309, 21815 #### [facility] [address] [place] [address], [facility] MCV (RBC) [Entitic vol] 87.6 fL Normal 82.0-98.0 [facility] Comment on above: Order Comment: No: D o not add to previous draw Performed By: #### 1 0070, 52463, 96886, 33771, 47234, 56526 #### [facility] [address] [place] [address], [facility] Monocytes (Bld) [#/Vol] 0.3 10*3/uL Normal 0.1-1.0 [facility] Comment on above: Order Comment: No: D o not add to previous draw Performed By: #### 1 0070, 21962, 33999, 04754, 09918, 80089 #### [facility] [address] [place] [address], [facility] MONOS 5.4 % Normal 5.0-12.0 [facility] Comment on above: Order Comment: No: D o not add to previous draw Performed By: #### 1 0070, 79684, 23495, 18952, 59280, 78879 #### [facility] [address] [place] [address], [facility] Neutrophils/100 WBC (Bld) 67.5 % Normal 40.0-72.0 [facility] Comment on above: Order Comment: No: D o not add to previous draw Performed By: #### 1 0070, 12889, 44462, 30760, 59834, 75325 #### [facility] [address] [facility] [place] [address], [facility] Nucleated RBC/100 WBC (Bld) [Ratio] 0 % Normal 0-0 [facility] Comment on above: Order Comment: No: D o not add to previous draw Performed By: #### 1 0070, 92719, 11578, 38758, 91128, 53294 #### [facility] [address] [place] [address], [facility] PLAT CNT 237 10*3/uL Normal 150-400 [facility] Comment on above: Order Comment: No: D o not add to previous draw Performed By: #### 1 0070, 73521, 98354, 48709, 24360, 77648 #### [facility] [address] [place], [place] [id number] [place] [address] RBC (Bld) [#/Vol] 4.67 10*6/uL Normal 3.80-5.00 [facility] Comment on above: Order Comment: No: D o not add to previous draw Performed By: #### 1 0070, 70977, 95302, 18877, 80312, 99211 #### [facility] [address] [facility] [place] [address], [facility] WBC (Bld) [#/Vol] 4.98 10*3/uL Normal 4.00-10.60 [facility] Comment on above: Order Comment: No: D o not add to previous draw Performed By: #### 1 0070, 04521, 20972, 18334, 20106, 93228 #### [facility] [address] [facility] [place], [place] [id number] [place] [address] CHEST AND LATERALon 04-01-20 CHEST AND LATERAL [facility] Department of Radiology [address] [place], [place] [address] Patient Name: EMIGDIO APODACA : 1965 Sex: F Age: Race: White Pt. Location: [id number] Patient Status: I Ordered Date: 04/01/2020 7:00:00 [...] reports Electronically signed: Shari Arteaga. Transcribed by: [email or web address], User Resident: ANNE VEGA Electronically Signed by: SHARI ARTEAGA @ 04/01/2020 10:12 AM I personally read this/these film(s) with this resident Normal [facility] Comment on above: Order Comment: No: D o not add to previous draw MAGNESIUM BLOODon 04-01-2020 Magnesium [Mass/Vol] 2.1 mg/dL Normal 1.9-2.7 [facility] Comment on above: Order Comment: No: D o not add to previous draw Performed By: #### 1 0070, 63100, 59597, 38224, 53694, 25976 #### [facility] [address] [place] [address], [facility] APTTon 03-31-2020 aPTT Coag (Bld) [Time] 28.3 s Normal 25.0-35.0 Th e [facility] Comment on above: Order Comment: No: [...] THIS PURPOSE. Performed By: #### 1 0070, 32738, 93348, 90557, 49505, 68513 #### [facility] [address] [place] [address], [facility] BASIC METABOLIC PANELon 06-3 0-2020 Calcium [Mass/Vol] 7.8 mg/dL Low 8.6-10.3 [facility] Comment on above: Order Comment: No: D o not add to previous draw Performed By: #### 1 0070, 25062, 85674, 79395, 89636, 33877 #### [facility] [address] [place] [address], [facility] Chloride [Moles/Vol] 108 mmol/L High 98-107 [facility] Comment on above: Order Comment: No: D o not add to previous draw Performed By: #### 1 0070, 25707, 29908, 19269, 36612, 49973 #### [facility] [address] [place] [address], [facility] CO2 [Moles/Vol] 26 mmol/L Normal 21-31 [facility] Comment on above: Order Comment: No: D o not add to previous draw Performed By: #### 1 0070, 99186, 52500, 35196, 40854, 00596 #### [facility] [address] [place] [id number], [facility] Creatinine [Mass/Vol] 0.76 mg/dL Normal 0.60-1.20 [facility] Comment on above: Order Comment: No: D o not add to previous draw Performed By: #### 1 0070, 08353, 86657, 01410, 94710, 65503 #### [facility] [address] [place] [address], [place] GFR/1.73 sq M predicted among blacks MDRD (S/P/Bld) [Vol rate/Area] mL/min/{1.73_m2} Normal >60 [facility] Comment on above: Order Comment: No: D o not add to previous draw Performed By: #### 1 0070, 87562, 96760, 80196, 06410, 49806 #### [facility] [address] [place] [address], [place] GFR/1.73 sq M predicted among non-blacks MDRD (S/P/Bld) [Vol rate/Area] mL/min/{1.73_m2} Normal >60 [facility] Comment on above: Order Comment: No: D o not add to previous draw Performed By: #### 1 0070, 43077, 33059, 79740, 19057, 90743 #### [facility] [address] [place] [address], [place] Glucose [Mass/Vol] 97 mg/dL Normal 70-100 [facility] Comment on above: Order Comment: No: D o not add to previous draw Performed By: #### 1 0070, 65560, 60812, 51643, 51001, 69624 #### [facility] [address] [place] [address], [place] Potassium [Moles/Vol] 3.2 mmol/L Low 3.5-5.1 [facility] Comment on above: Order Comment: No: D o not add to previous draw Performed By: #### 1 0070, 24396, 71663, 73865, 24830, 80144 #### [facility] [address] [place] [address], [place] Sodium [Moles/Vol] 140 mmol/L Normal 136-145 [facility] Comment on above: Order Comment: No: D o not add to previous draw Performed By: #### 1 0070, 25367, 86138, 36737, 10260, 02237 ####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 Peridex mouthwash. May remove dressing tomorrow. Daily showers with Betasept wash. No driving.[facility] Work Phone: 1(125) 363-620011-11-2022 Progress note Author Nathaniel Meza [facility] August 12, 2022 11:59am Note Date/Time August 12, 2022 8:13am [facility] [address] [place] [address] Pulmonology Progress Note Signed Patient: Emigdio Apodaca MR#: [id number] : 1965 Acct:[id number] Age/Sex: 56 / F Adm Date: 2 Loc: Room: [address] [place] [address] Type: REG SDC Attending Dr: Rodolfo Harley [...] <Electronically signed by MD Nathaniel Meza> 08/12/22 9867 [facility] Work Phone: 1(328) 733-844511-10-2022 Progress note Author Nathaniel Meza [facility] August 11, 2022 10:07am Note Date/Time August 11, 2022 7:43am [facility] [address] [place] [address] Pulmonology Progress Note Signed Patient: Emigdio Apodaca MR#: [id number] : 1965 Acct:[id number] Age/Sex: 56 / F Adm Date: 2 Loc: Room: [address] [place] [address] Type: [facility] Attending Dr: Rodolfo Harley MD [...] <Electronically signed by MD Nathaniel Meza> 08/11/[address] [place] [address] Ctr Work Phone: 1(666) 156-750511-09-2022 Consult note Author Nathaniel Meza [facility] August 10, 2022 5:46pm Note Date/Time August 10, 2022 5 :41pm [facility] [address] [place] [address] Pulmonology Consult Note Signed Patient: Emigdio Apodaca MR#: [id number] : 1965 Acct:[id number] Age/Sex: 56 / F Adm Date: 2 Loc: Room: 7S5956-6 Type: [facility] Attending Dr: Rodolfo Harley MD Copies to: MD Nathaniel Carrera MD Douglas M Hoy, MD~ HPI Date/Time of Consultation: Date of Service: 08/10/2022 Time of Service: 17:35 Consulting Provider: Nathaniel Meza Requesting Provider: Rodolfo Harley History of Present Illness History of present illness: Ms. Apodcaa is a 56 year old female seen at the request of the cardiothoracic surgery service for history of interstitial lung disease. Patient has been followed by Dr. Nadege Gardner at [place] with complaints of dyspnea on exertion as [...] <Electronically signed by MD Nathaniel Meza> 08/10/22 174 [facility] Work Phone: Evaluation noteNo assessment information available [facility] Work Phone: Evaluation note* Diagnosis Onset Date Resolution Status Bipolar 1 disorder acute Bronchiectasis acute Hypercholesteremia acute Hypothyroidism acute Interstitial lung disease ac [facility] Work Phone: Evaluation note* Diagnosis Onset Date Resolution Status Bipolar 1 disorder acute Hypercholesteremia acute Hypothyroidism acute Interstitial lung disease ac [place] Bipolar 1 disorder acute Bronchiectasis acute Hypercholesteremia acute Hypothyroidism acute Interstitial lung disease [facility] Work Phone: Summary Purpose Family History No Family History Records FoundNo Family History Records FoundNo Family History Records FoundNo Family History Records Found Advance Directives No Advanced Directives Records Found Advance Directive Response Recorded Date/ Time Advance Directives No August 05, 2022 8:18am Hospital Course Note MR#: [id number] [facility] Pt. Name: Emigdio Apodaca Admitted: 03/30/2020 Discharged: [...] and content) DATE CREATED AUTHOR 04/23/2020 [facility] DATE CREATED AUTHOR AUTHOR'S ORGANIZ ATION 01/07/2023 [facility] DATE CREATED AUTHOR AUTHOR'S ORGANIZ ATION 10/25/2023 [facility] DATE CREATED AUTHOR AUTHOR'S ORGANIZ ATION 11/01/2023 [facility] Care Teams (unrecognized sec tion and content) Team Status: Inactive Member Role Status Chucho Harley MD Attending Provider Active Tony Turner MD Primary Care Provider Active Team Status: Active Member Role Status Chucho Turner MD Primary Care Provider Active Team Status: Inactive Member Role Status Chucho Turner MD Primary Care Provider Active Rodolfo Harley MD Attending Provider Active Allyssa Washburn APRN [facility] Other Provider Active Jonah Badillo MD Other Provider Active Nathaniel Meza MD Other Provider Active Daiana Whitehead MD Other Provider Active Edgardo Espinoza DO Other Provider Active Stacey Ceuvas MD Other Provider Active Beau Jones MD [...] BE BASED ON THE PRIMARY CLINICAL RECORDS. [facility] [employer] [facility]. provides no warranty or guarantee of the accuracy or completeness of information in this document.
[2023-12-22] MEDS: METRONIDAZOLE/SODIUM CHLORIDE 500 MG/100 ML PREMIX 100 MG IV (21:16)
[2023-12-22] MEDS: POTASSIUM CHLORIDE IN WATER 10 MEQ/100 ML PIGGYBACK 100 MEQ IV ×2 (22:19→23:37)
[2023-12-22] MEDS: LAMOTRIGINE 25 MG TABLET 50 MG PO (22:38)
[2023-12-22 22:49] LABS: Bilirubin Urine NEGATIVE (NEGATIVE); Blood Urine NEGATIVE (NEGATIVE); Clarity Urine CLEAR (CLEAR); Color Urine LT. YELLOW (YELLOW); Glucose Urine UA NEGATIVE (NEGATIVE); Ketones Urine NEGATIVE (NEGATIVE); Leukocyte Esterase Urine NEGATIVE (NEGATIVE); Nitrite Urine NEGATIVE (NEGATIVE); Protein Urine NEGATIVE (NEG/TRACE); Urobilinogen Urine 0.2 EU/dL (0.2-1.0); pH Urine 6.5 (5.0-9.0)
[2023-12-22 22:57] LABS: Urine Microscopic Indicated NO
[2023-12-23] VITALS (7 sets, daily range): BP systolic 94–108; BP diastolic 60–69; PULSE 72–76; RESP 16–18; TEMP 36.4–36.7; O2SAT 91–98
[2023-12-23 04:26] LABS: Basophils Percent Auto 0.3 % (0.2-2.0); Eosinophils Percent Auto 0.4 % (0.9-7.0); Hematocrit 40.5 % (36.0-48.0); Hemoglobin 12.9 g/dL (12.0-16.0); Immature Granulocytes Abs Auto 0.01 10^3/uL (0.00-0.03); Immature Granulocytes Pct Auto 0.1 % (0.0-0.5); Lymphocytes Absolute Auto 1.2 10^3/uL (1.2-3.8); Lymphocytes Percent Auto 17.7 % (20.5-60.0); Mean Corpuscular HGB Conc 31.9 g/dL (29.9-35.2); Mean Corpuscular Hemoglobin 27.8 pg (26.7-34.0); Mean Corpuscular Volume 87.3 fL (81.0-99.0); Mean Platelet Volume 9.6 fL (9.5-13.5); Monocytes Absolute Auto 0.3 10^3/uL (0.3-0.8); Monocytes Percent Auto 4.3 % (1.7-12.0); Neutrophils Absolute Auto 5.2 10^3/uL (1.4-6.5); Neutrophils Percent Auto 77.2 % (43.0-75.0); Platelet Count 192 10^3/uL (150-450); Red Blood Count 4.64 10^6/uL (4.20-5.40); Red Cell Distribution Width 13.6 % (11.0-15.0); White Blood Count 6.8 10^3/uL (4.0-11.0)
[2023-12-23 04:44] LABS: Alanine Aminotransferase 25 U/L (14-59); Albumin Level 3.1 g/dL (3.4-5.0); Alkaline Phosphatase 98 U/L (46-116); Anion Gap 9.3; Aspartate Amino Transferase 23 U/L (15-37); BUN Creatinine Ratio 11.6; Bilirubin Total 0.4 mg/dL (0.2-1.0); Calcium 8.3 mg/dL (8.5-10.1); Carbon Dioxide 28.4 mmol/L (21.0-32.0); Chloride 105 mmol/L (98-107); Estimated GFR (African America >60 (>=60); Estimated GFR (Non-African Ame >60 (>=60); Globulin 3.1 g/dL; Glucose 103 mg/dL (74-106); Potassium 3.7 mmol/L (3.5-5.1); Sodium 139 mmol/L (136-145); Total Protein 6.2 g/dL (6.4-8.2)
[2023-12-23] MEDS: METRONIDAZOLE/SODIUM CHLORIDE 500 MG/100 ML PREMIX 100 MG IV ×3 (06:22→22:25)
[2023-12-23] MEDS: LEVOTHYROXINE SODIUM 125 MCG TABLET PO (06:22)
--- NOTE | 2023-12-23 08:18 | PM.HP ---
HPI H&P: HPI History of Present Illness Chief complaint: DIZZINESS, PANCOLITIS Narrative: patient is a 58-year-old female with past medical history of hyperlipidemia, depression, GERD, hypothyroidism who presented to the Emergency Room last night with increased nausea vomiting and abdominal pain. CT scan showed a pancolitis with esophagitis. Patient was started on some IV Cipro and Flagyl. Patient's white blood cell count has remained normal, stool testing was negative, liver enzymes including bilirubin were all within normal range. Patient reports this morning she has improvement in symptoms she denies any further vomiting but still with some nausea and she has not had any bowel movements since last night. She denies having any issues like this before but she has had an EGD and colonoscopy within the last five [address] Garnica only showing some polyps per patient. She has no other issues or concerns on exam this morning. Opioid HPI Opioid Management Most Recent Opioid Data: Last Pain Assessment 12/23/23 14:00 Review of Systems ROS Narrative ROS: a complete review of systems were reviewed with patient and are positive as below or listed in History of Chief Complaint. General: no fever, chills, night sweats Head: no headache, trauma, visual changes, nausea or vomiting Skin: no reported rashes, itching or sores Eyes: no blurriness of vision Ears: no reported hearing loss, vertigo, earache, or tinnitus Throat: no sore throat, hoarseness, swelling of neck, or tongue pain Heart: no chest pain Lungs: no shortness of breath or cough GI: diarrhea and vomiting/nausea Urinary: no urinary urgency, frequency or pain Neuro: no numbness or tingling HEM: no bleeding issues or bruising ENDO: thyroid problems Psych: no anxiety or depression [facility] Medical History (Updated 12/23/23 @ 15:14 by Galilea Danielle DO) Pulmonary hypertension ?I27.20 - Pulmonary hypertension, unspecified (ICD-10) Cholecystitis ?K81.9 - Cholecystitis, unspecified (ICD-10) Depression ?F32.A - Depression, unspecified (ICD-10) On home O2 ?Z99.81 - Dependence on supplemental oxygen (ICD-10) Hyperthyroidism ?E05.90 - Thyrotoxicosis, unspecified without thyrotoxic crisis or storm (ICD-10) Scoliosis ?M41.9 - Scoliosis, unspecified (ICD-10) Emphysema lung ?J43.9 - Emphysema, unspecified (ICD-10) Nausea & vomiting ?R11.2 - Nausea with vomiting, unspecified (ICD-10) Pacemaker ?Z95.0 - Presence of cardiac pacemaker (ICD-10) COPD (chronic obstructive pulmonary disease) ?J44.9 - Chronic obstructive pulmonary disease, unspecified (ICD-10) Surgical History History of tonsillectomy ?Z90.89 - Acquired absence of other organs (ICD-10) H/O right wrist surgery ?Z98.890 - Other specified postprocedural states (ICD-10) H/O colectomy ?Z90.49 - Acquired absence of other specified parts of digestive tract (ICD-10) Family History Mother Family history of COPD (chronic obstructive pulmonary disease) Grandmother Family history of cancer Sister Family history of diabetes mellitus Father Family history of myocardial infarction Social History Within the past year, how often did you have a drink containing alcohol: never Within the past year, how often did you have six or more drinks on one occasion: never Score interpretation: A score less than 3 is consistent with normal alcohol consumption. 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 Known occupational exposures/hazards: No Highest level of school completed/degree received: 10th grade Do you want help with school or training: No Are you now , , , , never or living with a partner: In a typical week, how many times do you talk on the telephone with family, friends, or neighbors: 3 or more times per week How often do you get together with friends or relatives: 3 or more times per week How often do you attend mosque or buddhist services: 4 or more times per year Do you belong to any clubs or organizations such as mosque groups unions, fraternal or athletic groups, or school groups: yes Total score: 3 Score interpretation: A score of greater than or equal to 2 indicates the lowest level of social isolation. Little interest or pleasure in doing things: not at all Feeling down, depressed, or hopeless: not at all Feel stressed/tense/nervous/anxious/difficulty sleeping: to some extent Life stressors: unknown source of stress Due to disability, difficulty making decisions: No Do you think of yourself as: straight/heterosexual Gender Identity: female Meds Home Medications and Allergies Home Medications ?Medication ?Instructions ?Recorded ?Confirmed ?Type bupropion HCl 300 mg 24 hr tablet, 300 mg PO DAILY 09/25/23 12/22/23 History extended release cholecalciferol (vitamin D3) 50 50 mcg PO DAILY 09/25/23 12/22/23 History mcg (2,000 unit) capsule citalopram 20 mg tablet 20 mg PO DAILY 09/25/23 12/22/23 History lamotrigine 25 mg tablet 50 mg PO BEDTIME 09/25/23 12/22/23 History lansoprazole 30 mg capsule,delayed 30 mg PO DAILY 09/25/23 12/22/23 History release levothyroxine 125 mcg tablet 125 mcg PO DAILY 09/25/23 12/22/23 History simvastatin 20 mg tablet 20 mg PO DAILY 09/25/23 12/22/23 History triamcinolone acetonide 0.1 % 1 applic dental BID 09/25/23 12/22/23 History dental paste docusate sodium 100 mg capsule 100 mg PO PRN 12/22/23 12/22/23 History (Col-Rite) loratadine 10 mg tablet (Allergy 10 mg PO DAILY 12/22/23 12/22/23 History Relief (loratadine)) Allergies Allergy/AdvReac Type Severity Reaction Status Date / Time acetaminophen [From Percocet] Allergy Mild Vomiting Verified 12/22/23 17:31 codeine Allergy Mild Vomiting Verified 12/22/23 17:31 oxycodone [From Percocet] Allergy Mild Vomiting Verified 12/22/23 17:31 promethazine Allergy Mild Agitated Verified 12/22/23 17:31 Sulfa (Sulfonamide Allergy Mild Vomiting Verified 12/22/23 17:31 Antibiotics) hydromorphone [From Dilaudid] AdvReac Mild Rash Verified 12/22/23 17:31 prochlorperazine AdvReac Mild Verified 12/22/23 17:31 [From Compazine] Exam Narrative Exam Narrative: General: Patient is alert, and oriented to person, place and time with normal affect, proper hygiene Skin: no visible rashes, or ulcers Head: atraumatic, acephalic Eyes: PERRLA, no nystagmus present, conjunctiva clear, no scleral icterus Ears: normal gross auditory acuity Nose: symmetric, no discharge, no maxillary or frontal sinus tenderness Mouth/Throat: no erythema, exudate, or tonsillar enlargement, normal dentition Neck: no masses palpated, normal thyroid, no JVD or audible carotid bruits Heart: Normal rate and rhythm, no murmurs/rubs/gallops Lungs: no audible wheezes, crackles and normal breath sounds all lung wright Abdomen: Normal audible bowel sounds, no distension, No palpable masses, no organomegaly, no rebound/guarding/ or rigidity Musculoskeletal: no swelling bilateral lower extremities Lymph: no supraclavicular, axillary, or anterior/posterior cervical adenopathy Neuro: CN II-X grossly intact Constitutional Vital Signs, click to edit/add: Last Vital Signs Temp 98.0 F 12/23/23 04:51 Pulse 75 12/23/23 04:51 Resp 16 12/23/23 04:51 BP 108/69 12/23/23 04:51 Pulse Ox 97 12/23/23 04:51 O2 Del Method Nasal Cannula 12/23/23 04:51 O2 Flow Rate 2 12/23/23 04:51 Results Labs Labs: Short CBC 12/22/23 12/23/23 Range/Units 17:40 04:09 WBC 6.9 6.8 (4.0-11.0) 10^3/uL Hgb 14.5 12.9 (12.0-16.0) g/dL Hct 46.2 40.5 (36.0-48.0) % Plt Count 214 192 (150-450) 10^3/uL BMP 12/22/23 12/23/23 17:40 04:09 Sodium 139 139 Potassium 3.3 L 3.7 Chloride 103 105 Carbon Dioxide 28.2 28.4 BUN 15.0 10.0 Creatinine 1.02 0.86 Glucose 134 H 103 Calcium 9.1 8.3 L Liver Function 12/22/23 12/23/23 Range/Units 17:40 04:09 Total Bilirubin 0.3 0.4 (0.2-1.0) mg/dL AST 26 23 (15-37) U/L ALT 30 25 (14-59) U/L Alkaline Phosphatase 119 H 98 (46-116) U/L Albumin 3.9 3.1 L (3.4-5.0) g/dL Urine 12/22/23 Range/Units 22:26 Urine Color Lt. yellow (YELLOW) Urine Clarity Clear (CLEAR) Urine pH 6.5 (5.0-9.0) Ur Specific [place] 1.010 (1.005-1.025) Urine Protein Negative (NEG/TRACE) mg/dL Urine Glucose (UA) Negative (NEGATIVE) mg/dL Assessment and Plan Assessment and Plan (1) Pancolitis: Assessment and Plan: continue bowel rest, npo, cipro and flagyl, antiemetics if needed. (2) Esophagitis: Assessment and Plan: continue ppi (3) Depression: Assessment and Plan: continue Lamictal and Wellbutrin (4) COPD (chronic obstructive pulmonary disease): Assessment and Plan: no acute exacerbation Qualifiers: COPD type: unspecified COPD Qualified Code(s): J44.9 - Chronic obstructive pulmonary disease, unspecified (5) Hypothyroid: Assessment and Plan: continue levothyroxine Qualifiers: Hypothyroidism type: acquired Qualified Code(s): E03.9 - Hypothyroidism, unspecified Plan patient is a full code patient is is observation status and is not expected to cross 2 midnights SCD's for dvt propylaxis
[2023-12-23] MEDS: CITALOPRAM HYDROBROMIDE 20 MG TABLET PO (10:26)
[2023-12-23] MEDS: BUPROPION HCL 150 MG XL TABLET 24H 300 MG PO (10:26)
[2023-12-23] MEDS: ATORVASTATIN CALCIUM 10 MG TABLET PO (10:26)
[2023-12-23] MEDS: ONDANSETRON PF 4 MG/2 ML VIAL IV (10:26)
[2023-12-23] MEDS: CHOLECALCIFEROL (VITAMIN D3) 25 MCG/1,000 UNITS TABLET 50 MCG PO (10:26)
[2023-12-23] MEDS: CETIRIZINE HCL 10 MG TABLET PO (10:26)
[2023-12-23] MEDS: CIPROFLOXACIN IN 5 % DEXTROSE 400 MG/200 ML PIGGYBACK 200 MG IV ×2 (10:27→20:42)
[2023-12-23] MEDS: OMEPRAZOLE 40 MG CAPSULE.DR PO (10:27)
[2023-12-23] MEDS: 0.9 % SODIUM CHLORIDE 250 ML 10 ML IV (15:48)
[2023-12-23] MEDS: LAMOTRIGINE 25 MG TABLET 50 MG PO (20:42)
[2023-12-24] VITALS (8 sets, daily range): BP systolic 90–124; BP diastolic 47–70; PULSE 72–91; RESP 16–22; TEMP 36.4–37.1; O2SAT 93–97
[2023-12-24 05:27] LABS: Basophils Percent Auto 0.3 % (0.2-2.0); Eosinophils Absolute Auto 0.1 10^3/uL (0.0-0.7); Eosinophils Percent Auto 3.5 % (0.9-7.0); Hematocrit 41.4 % (36.0-48.0); Lymphocytes Absolute Auto 1.1 10^3/uL (1.2-3.8); Lymphocytes Percent Auto 35.9 % (20.5-60.0); Mean Corpuscular HGB Conc 31.4 g/dL (29.9-35.2); Mean Corpuscular Hemoglobin 28.2 pg (26.7-34.0); Mean Corpuscular Volume 89.8 fL (81.0-99.0); Mean Platelet Volume 9.7 fL (9.5-13.5); Monocytes Absolute Auto 0.2 10^3/uL (0.3-0.8); Monocytes Percent Auto 6.7 % (1.7-12.0); Neutrophils Absolute Auto 1.7 10^3/uL (1.4-6.5); Neutrophils Percent Auto 53.6 % (43.0-75.0); Platelet Count 165 10^3/uL (150-450); Red Blood Count 4.61 10^6/uL (4.20-5.40); Red Cell Distribution Width 13.7 % (11.0-15.0); White Blood Count 3.1 10^3/uL (4.0-11.0)
[2023-12-24 05:45] LABS: Alanine Aminotransferase 23 U/L (14-59); Albumin Level 3.1 g/dL (3.4-5.0); Alkaline Phosphatase 94 U/L (46-116); Aspartate Amino Transferase 22 U/L (15-37); BUN Creatinine Ratio 9.8; Bilirubin Total 0.4 mg/dL (0.2-1.0); Calcium 8.6 mg/dL (8.5-10.1); Carbon Dioxide 28.6 mmol/L (21.0-32.0); Chloride 104 mmol/L (98-107); Estimated GFR (African America >60 (>=60); Estimated GFR (Non-African Ame 55 (>=60); Globulin 3.2 g/dL; Glucose 90 mg/dL (74-106); Potassium 3.6 mmol/L (3.5-5.1); Sodium 141 mmol/L (136-145); Total Protein 6.3 g/dL (6.4-8.2)
[2023-12-24] MEDS: LEVOTHYROXINE SODIUM 125 MCG TABLET PO (05:47)
[2023-12-24] MEDS: METRONIDAZOLE/SODIUM CHLORIDE 500 MG/100 ML PREMIX 100 MG IV ×3 (05:54→22:19)
--- NOTE | 2023-12-24 08:19 | PM.DS1 ---
DS: Providers Provider Date of admission: 12/22/23 20:36 Primary care physician: Paulo Turner MD DS: Diagnosis Discharge Diagnosis (1) Pancolitis: (2) Esophagitis: (3) Depression: (4) COPD (chronic obstructive pulmonary disease): Qualifiers: COPD type: unspecified COPD Qualified Code(s): J44.9 - Chronic obstructive pulmonary disease, unspecified (5) Hypothyroid: Qualifiers: Hypothyroidism type: acquired Qualified Code(s): E03.9 - Hypothyroidism, unspecified DS: Summary Time Spent with Patient Time attestation: Total time spent providing and/or coordinating discharge services: Exam Constitutional Vital Signs, click to edit/add: Last Vital Signs Temp 97.8 F 12/24/23 03:53 Pulse 80 12/24/23 03:53 Resp 16 12/24/23 03:53 BP 90/47 L 12/24/23 03:53 Pulse Ox 95 12/24/23 03:53 O2 Del Method Nasal Cannula 12/24/23 03:53 O2 Flow Rate 2 12/24/23 03:53 DS: Data Data Completed and Pending Labs on day of discharge: Labs from last 24 hours 12/24/23 04:20 WBC 3.1 L RBC 4.61 Hgb 13.0 Hct 41.4 MCV 89.8 MCH 28.2 MCHC 31.4 RDW 13.7 Plt Count 165 MPV 9.7 Neut % (Auto) 53.6 Lymph % (Auto) 35.9 [place] % (Auto) 6.7 Eos % (Auto) 3.5 Baso % (Auto) 0.3 Neut # (Auto) 1.7 Lymph # (Auto) 1.1 L [place] # (Auto) 0.2 L Eos # (Auto) 0.1 Baso # (Auto) 0.0 Abs Immat Gran (auto) 0.00 Imm/Tot Granulo (auto) 0.0 Sodium 141 Potassium 3.6 Chloride 104 Carbon Dioxide 28.6 Anion Gap 12.0 BUN 10.0 Creatinine 1.02 Est GFR ( Amer) >60 Est GFR (Non-Af Amer) 55 L BUN/Creatinine Ratio 9.8 Glucose 90 Calcium 8.6 Total Bilirubin 0.4 AST 22 ALT 23 Alkaline Phosphatase 94 Total Protein 6.3 L Albumin 3.1 L Globulin 3.2 Albumin/Globulin Ratio 1.0 Discharge Plan Discharge Condition: Good Discharge Medications: No Action bupropion HCl 300 mg tablet extended release 24 hr 300 mg PO DAILY cholecalciferol (vitamin D3) 50 mcg (2,000 unit) capsule 50 mcg PO DAILY citalopram 20 mg tablet 20 mg PO DAILY lamotrigine 25 mg tablet 50 mg PO BEDTIME lansoprazole 30 mg capsule,delayed release(DR/EC) 30 mg PO DAILY levothyroxine 125 mcg tablet 125 mcg PO DAILY simvastatin 20 mg tablet 20 mg PO DAILY triamcinolone acetonide 0.1 % paste 1 applic dental BID loratadine [Allergy Relief (loratadine)] 10 mg tablet 10 mg PO DAILY docusate sodium [Col-Rite] 100 mg capsule 100 mg PO PRN Print Language: Estonian
[2023-12-24] MEDS: OMEPRAZOLE 40 MG CAPSULE.DR PO (10:28)
[2023-12-24] MEDS: ATORVASTATIN CALCIUM 10 MG TABLET PO (10:28)
[2023-12-24] MEDS: CETIRIZINE HCL 10 MG TABLET PO (10:28)
[2023-12-24] MEDS: CITALOPRAM HYDROBROMIDE 20 MG TABLET PO (10:28)
[2023-12-24] MEDS: CIPROFLOXACIN IN 5 % DEXTROSE 400 MG/200 ML PIGGYBACK 200 MG IV ×2 (10:28→21:06)
[2023-12-24] MEDS: BUPROPION HCL 150 MG XL TABLET 24H 300 MG PO (10:29)
[2023-12-24] MEDS: CHOLECALCIFEROL (VITAMIN D3) 25 MCG/1,000 UNITS TABLET 50 MCG PO (10:29)
[2023-12-24] MEDS: LACTATED RINGER'S SOLUTION 1,000 ML 125 ML IV ×2 (12:44→22:19)
[2023-12-24] MEDS: ONDANSETRON PF 4 MG/2 ML VIAL IV (12:44)
--- NOTE | 2023-12-24 13:42 | PM.PN ---
Progress Note: Subjective Subjective Interval history: patient still not much appetite. She is able to keep down fluids. Some diffuse abdominal pain. No fevers or chills. Still feels weak and dizzy when she sits up fast. Dry mouth. Exam Narrative Exam Narrative: General: Patient is alert, and oriented to person, place and time with normal affect, proper hygiene Skin: no visible rashes, or ulcers Head: atraumatic, acephalic Heart: Normal rate and rhythm, no murmurs/rubs/gallops Lungs: no audible wheezes, crackles and normal breath sounds all lung wright Abdomen: Normal audible bowel sounds, no distension, No palpable masses, no organomegaly, no rebound/guarding/ or rigidity Musculoskeletal: no swelling bilateral lower extremities Neuro: CN II-X grossly intact Constitutional Vital Signs, click to edit/add: Last Vital Signs Temp 97.6 F 12/24/23 11:12 Pulse 72 12/24/23 11:12 Resp 16 12/24/23 11:12 BP 113/67 12/24/23 11:12 Pulse Ox 95 12/24/23 11:12 O2 Del Method Nasal Cannula 12/24/23 11:12 O2 Flow Rate 2 12/24/23 11:12 Progress Note: Objective Labs Labs: Short CBC 12/24/23 Range/Units 04:20 WBC 3.1 L (4.0-11.0) 10^3/uL Hgb 13.0 (12.0-16.0) g/dL Hct 41.4 (36.0-48.0) % Plt Count 165 (150-450) 10^3/uL BMP 12/24/23 04:20 Sodium 141 Potassium 3.6 Chloride 104 Carbon Dioxide 28.6 BUN 10.0 Creatinine 1.02 Glucose 90 Calcium 8.6 Liver Function 12/24/23 Range/Units 04:20 Total Bilirubin 0.4 (0.2-1.0) mg/dL AST 22 (15-37) U/L ALT 23 (14-59) U/L Alkaline Phosphatase 94 (46-116) U/L Albumin 3.1 L (3.4-5.0) g/dL Progress Note: A&P Assessment and Plan (1) Pancolitis: Assessment and Plan: continue bowel rest, advance diet today, cipro and flagyl, antiemetics if needed. INcrease IVF to LR @125 (2) Esophagitis: Assessment and Plan: continue ppi (3) Depression: Assessment and Plan: continue Lamictal and Wellbutrin (4) COPD (chronic obstructive pulmonary disease): Assessment and Plan: no acute exacerbation; is on 2 L NC oxygen continuous at home Qualifiers: COPD type: unspecified COPD Qualified Code(s): J44.9 - Chronic obstructive pulmonary disease, unspecified (5) Hypothyroid: Assessment and Plan: continue levothyroxine Qualifiers: Hypothyroidism type: acquired Qualified Code(s): E03.9 - Hypothyroidism, unspecified Plan patient is a full code SCD's for dvt propylaxis
[2023-12-24] MEDS: ACETAMINOPHEN 325 MG TABLET 650 MG PO (15:32)
[2023-12-24] MEDS: LAMOTRIGINE 25 MG TABLET 50 MG PO (21:06)
[2023-12-25] VITALS (9 sets, daily range): BP systolic 93–121; BP diastolic 55–78; PULSE 69–81; RESP 16–20; TEMP 36.3–36.7; O2SAT 91–96
[2023-12-25 05:39] LABS: Basophils Percent Auto 0.3 % (0.2-2.0); Eosinophils Absolute Auto 0.1 10^3/uL (0.0-0.7); Hematocrit 37.8 % (36.0-48.0); Hemoglobin 11.6 g/dL (12.0-16.0); Immature Granulocytes Abs Auto 0.01 10^3/uL (0.00-0.03); Immature Granulocytes Pct Auto 0.3 % (0.0-0.5); Lymphocytes Absolute Auto 1.2 10^3/uL (1.2-3.8); Lymphocytes Percent Auto 35.4 % (20.5-60.0); Mean Corpuscular HGB Conc 30.7 g/dL (29.9-35.2); Mean Corpuscular Hemoglobin 27.8 pg (26.7-34.0); Mean Corpuscular Volume 90.6 fL (81.0-99.0); Mean Platelet Volume 10.1 fL (9.5-13.5); Monocytes Absolute Auto 0.3 10^3/uL (0.3-0.8); Monocytes Percent Auto 7.9 % (1.7-12.0); Neutrophils Absolute Auto 1.7 10^3/uL (1.4-6.5); Neutrophils Percent Auto 53.1 % (43.0-75.0); Platelet Count 152 10^3/uL (150-450); Red Blood Count 4.17 10^6/uL (4.20-5.40); Red Cell Distribution Width 13.4 % (11.0-15.0); White Blood Count 3.3 10^3/uL (4.0-11.0)
[2023-12-25 05:51] LABS: Alanine Aminotransferase 20 U/L (14-59); Albumin Level 2.7 g/dL (3.4-5.0); Alkaline Phosphatase 89 U/L (46-116); Anion Gap 11.8; Aspartate Amino Transferase 19 U/L (15-37); BUN Creatinine Ratio 14.4; Bilirubin Total 0.1 mg/dL (0.2-1.0); Calcium 8.2 mg/dL (8.5-10.1); Carbon Dioxide 28.9 mmol/L (21.0-32.0); Chloride 106 mmol/L (98-107); Estimated GFR (African America >60 (>=60); Estimated GFR (Non-African Ame 59 (>=60); Globulin 2.8 g/dL; Glucose 105 mg/dL (74-106); Potassium 3.7 mmol/L (3.5-5.1); Sodium 143 mmol/L (136-145); Total Protein 5.5 g/dL (6.4-8.2)
[2023-12-25] MEDS: LACTATED RINGER'S SOLUTION 1,000 ML 125 ML IV ×2 (06:24→21:27)
[2023-12-25] MEDS: LEVOTHYROXINE SODIUM 125 MCG TABLET PO (06:24)
[2023-12-25] MEDS: METRONIDAZOLE/SODIUM CHLORIDE 500 MG/100 ML PREMIX 100 MG IV ×3 (06:24→23:43)
[2023-12-25] MEDS: ACETAMINOPHEN 325 MG TABLET 650 MG PO (06:30)
[2023-12-25] MEDS: ONDANSETRON PF 4 MG/2 ML VIAL IV (06:30)
--- NOTE | 2023-12-25 08:05 | XR_ITS ---
The [address] [address] Patient Name: EMIGDIO ELI MRN: [id number] date: 1965 Sex: F Assigned Patient Location: [place] Current Patient Location: [place] Accession/Order Number: [id number] Exam Date: 12/25/2023 11:30 Report Date: 12/25/2023 12:04 At the request of: TONY AMAYA Procedure: XR chest 2V EXAMINATION: XR chest 2V HISTORY: hypoxia COMPARISON: 01/06/2023 TECHNIQUE: PA and lateral FINDINGS: LUNGS: No significant pulmonary parenchymal abnormalities. Suture lines right midlung, stable VASCULATURE: No increased pulmonary vasculature. PLEURA: No pneumothorax, effusion, or pleural thickening. CARDIAC: No cardiomegaly or cardiac silhouette abnormality. MEDIASTINUM: No visible mass or adenopathy. BONES: No fracture or visible bone lesion. Left bipolar pacemaker OTHER: Negative. XR/XR chest 2V IMPRESSION: No acute cardiopulmonary process Electronically authenticated by: ALBERTO FERRO Date: 12/25/2023 12:04
--- NOTE | 2023-12-25 08:06 | PM.PN ---
Progress Note: Subjective Subjective Interval history: Patient still unable to keep down fluids. Unable to eat secondary to increasing pain Exam Constitutional Vital Signs, click to edit/add: Last Vital Signs Temp 98.1 F 12/25/23 04:00 Pulse 79 12/25/23 04:00 Resp 18 12/25/23 04:00 BP 108/70 12/25/23 04:00 Pulse Ox 96 12/25/23 05:22 O2 Del Method Nasal Cannula 12/25/23 05:22 O2 Flow Rate 1 12/25/23 05:22 Documenting provider has reviewed patient's vital signs: yes Common normals: apparent distress (Moderate painful distress) Chest Common normals: inspection of chest normal Respiratory Common normals: normal respiratory effort Auscultation: diminished lung sounds Cardio Common normals: regular rate and regular rhythm GI Common normals: Normal to inspection, nondistended, normoactive bowel sounds present, soft to palpation and no masses; tender (Moderate tenderness, no rebound tenderness) Extremity Common normals: normal to inspection and full ROM Progress Note: Objective Labs Labs: Short CBC 12/25/23 Range/Units 04:10 WBC 3.3 L (4.0-11.0) 10^3/uL Hgb 11.6 L (12.0-16.0) g/dL Hct 37.8 (36.0-48.0) % Plt Count 152 (150-450) 10^3/uL BMP 12/25/23 04:10 Sodium 143 Potassium 3.7 Chloride 106 Carbon Dioxide 28.9 BUN 14.0 Creatinine 0.97 Glucose 105 Calcium 8.2 L Liver Function 12/25/23 Range/Units 04:10 Total Bilirubin 0.1 L (0.2-1.0) mg/dL AST 19 (15-37) U/L ALT 20 (14-59) U/L Alkaline Phosphatase 89 (46-116) U/L Albumin 2.7 L (3.4-5.0) g/dL Progress Note: A&P Assessment and Plan (1) Pancolitis: Assessment and Plan: Pain is persisting, white blood cell count normal, maintain current antibiotics. Check occult blood his hemoglobin is down today almost -possible acute blood loss. (2) Esophagitis: Assessment and Plan: Add Carafate as pain is persisting and difficulty swallowing (3) Depression: (4) COPD (chronic obstructive pulmonary disease): Assessment and Plan: Check chest x-ray secondary to requiring supplemental oxygen during the day. She currently at nighttime is the only time she wears her supplemental oxygen at home Qualifiers: COPD type: unspecified COPD Qualified Code(s): J44.9 - Chronic obstructive pulmonary disease, unspecified (5) Hypothyroid: Qualifiers: Hypothyroidism type: acquired Qualified Code(s): E03.9 - Hypothyroidism, unspecified Plan Pain persisting, unable to eat, unable to send patient home as she is likely just to rebound. Continue with current antibiotics. Repeat labs in AM. Adding the Carafate may resolve her esophagitis and improve her ability to eat. Medically not stable for discharge.
[2023-12-25] MEDS: OMEPRAZOLE 40 MG CAPSULE.DR PO (08:18)
[2023-12-25] MEDS: CHOLECALCIFEROL (VITAMIN D3) 25 MCG/1,000 UNITS TABLET 50 MCG PO (08:18)
[2023-12-25] MEDS: HYOSCYAMINE SULFATE 0.125 MG TAB.SUBL 0.25 MG SL ×4 (08:18→21:26)
[2023-12-25] MEDS: CIPROFLOXACIN IN 5 % DEXTROSE 400 MG/200 ML PIGGYBACK 200 MG IV (08:19)
[2023-12-25] MEDS: CITALOPRAM HYDROBROMIDE 20 MG TABLET PO (08:19)
[2023-12-25] MEDS: ATORVASTATIN CALCIUM 10 MG TABLET PO (08:19)
[2023-12-25] MEDS: CETIRIZINE HCL 10 MG TABLET PO (08:19)
[2023-12-25] MEDS: BUPROPION HCL 150 MG XL TABLET 24H 300 MG PO (08:19)
[2023-12-25] MEDS: 0.9 % SODIUM CHLORIDE 1,000 ML 500 ML IV (10:28)
--- NOTE | 2023-12-25 14:31 | SWNOTE1 ---
SW met with pt to discuss dc needs. Pt lives at home and her 2 sons live with her. Pt has a walker that she does use most of the time. Pt does not have any HH at this time. Pt denies having any dc needs. SW to follow as needed.
[2023-12-25] MEDS: PANTOPRAZOLE SODIUM 40 MG VIAL IV (16:06)
[2023-12-25] MEDS: SUCRALFATE 1 GM TABLET PO ×2 (16:06→21:27)
[2023-12-25] MEDS: CIPROFLOXACIN IN 5 % DEXTROSE 400 MG/200 ML PIGGYBACK 100 MG IV (21:27)
[2023-12-25] MEDS: LAMOTRIGINE 25 MG TABLET 50 MG PO (21:53)
[2023-12-26] VITALS (7 sets, daily range): BP systolic 106–120; BP diastolic 66–74; PULSE 72–85; RESP 16–18; TEMP 36.7–37.1; O2SAT 90–96
[2023-12-26 05:24] LABS: Basophils Percent Auto 0.3 % (0.2-2.0); Eosinophils Absolute Auto 0.2 10^3/uL (0.0-0.7); Eosinophils Percent Auto 4.5 % (0.9-7.0); Hematocrit 38.9 % (36.0-48.0); Hemoglobin 12.2 g/dL (12.0-16.0); Immature Granulocytes Abs Auto 0.01 10^3/uL (0.00-0.03); Immature Granulocytes Pct Auto 0.3 % (0.0-0.5); Lymphocytes Absolute Auto 1.3 10^3/uL (1.2-3.8); Lymphocytes Percent Auto 35.4 % (20.5-60.0); Mean Corpuscular HGB Conc 31.4 g/dL (29.9-35.2); Mean Corpuscular Hemoglobin 28.4 pg (26.7-34.0); Mean Corpuscular Volume 90.5 fL (81.0-99.0); Mean Platelet Volume 11.5 fL (9.5-13.5); Monocytes Absolute Auto 0.3 10^3/uL (0.3-0.8); Monocytes Percent Auto 7.9 % (1.7-12.0); Neutrophils Absolute Auto 1.8 10^3/uL (1.4-6.5); Neutrophils Percent Auto 51.6 % (43.0-75.0); Platelet Count 132 10^3/uL (150-450); Red Cell Distribution Width 13.4 % (11.0-15.0); White Blood Count 3.5 10^3/uL (4.0-11.0)
[2023-12-26] MEDS: METRONIDAZOLE/SODIUM CHLORIDE 500 MG/100 ML PREMIX 100 MG IV ×3 (05:29→21:04)
[2023-12-26] MEDS: LEVOTHYROXINE SODIUM 125 MCG TABLET PO (05:30)
[2023-12-26 06:16] LABS: Alanine Aminotransferase 18 U/L (14-59); Alkaline Phosphatase 84 U/L (46-116); Anion Gap 8.5; Aspartate Amino Transferase 25 U/L (15-37); BUN Creatinine Ratio 11.6; Bilirubin Total 0.1 mg/dL (0.2-1.0); Calcium 8.9 mg/dL (8.5-10.1); Carbon Dioxide 29.4 mmol/L (21.0-32.0); Chloride 106 mmol/L (98-107); Estimated GFR (African America >60 (>=60); Estimated GFR (Non-African Ame >60 (>=60); Globulin 3.1 g/dL; Glucose 104 mg/dL (74-106); Potassium 3.9 mmol/L (3.5-5.1); Sodium 140 mmol/L (136-145); Total Protein 6.1 g/dL (6.4-8.2)
[2023-12-26] MEDS: BUPROPION HCL 150 MG XL TABLET 24H 300 MG PO (08:17)
[2023-12-26] MEDS: ACETAMINOPHEN 325 MG TABLET 650 MG PO (08:17)
[2023-12-26] MEDS: HYOSCYAMINE SULFATE 0.125 MG TAB.SUBL 0.25 MG SL ×4 (08:17→21:04)
[2023-12-26] MEDS: CETIRIZINE HCL 10 MG TABLET PO (08:18)
[2023-12-26] MEDS: CIPROFLOXACIN IN 5 % DEXTROSE 400 MG/200 ML PIGGYBACK 100 MG IV ×2 (08:18→20:13)
[2023-12-26] MEDS: ATORVASTATIN CALCIUM 10 MG TABLET PO (08:18)
[2023-12-26] MEDS: CHOLECALCIFEROL (VITAMIN D3) 25 MCG/1,000 UNITS TABLET 50 MCG PO (08:18)
[2023-12-26] MEDS: CITALOPRAM HYDROBROMIDE 20 MG TABLET PO (08:18)
[2023-12-26] MEDS: SUCRALFATE 1 GM TABLET PO ×4 (08:18→21:04)
--- NOTE | 2023-12-26 08:57 | CT_ITS ---
The [address] [address] Patient Name: EMIGDIO ELI MRN: [id number] date: 1965 Sex: F Assigned Patient Location: [place] Current Patient Location: [place] Accession/Order Number: [id number] Exam Date: 12/26/2023 09:10 Report Date: 12/26/2023 09:33 At the request of: TONY AMAYA Procedure: CT head/brain wo con EXAM: CT head/brain wo con HISTORY: vertigo, headache, blurred vision COMPARISON: None. TECHNIQUE: Axial noncontrast CT imaging of the head was performed with coronal and sagittal reformats. FINDINGS: Calvarium/skull base: No evidence of acute fracture or destructive lesion. Mastoids and middle ears demonstrate no substantial mucosal disease. Paranasal sinuses: No air fluid levels. Brain: No acute intracranial hemorrhage. No acute large vascular territory infarct. No mass lesion or mass effect. No hydrocephalus. CT/CT head/brain wo con IMPRESSION: No acute intracranial process. Electronically authenticated by: FROY LORENZANA Date: 12/26/2023 09:33
--- NOTE | 2023-12-26 08:59 | P.PN_ITS ---
Progress Note: Subjective Subjective Interval history: Patient kept on some fluids yesterday, she ate a couple bites of dinner last night. Exam Constitutional Vital Signs, click to edit/add: Last Vital Signs Temp 98.2 F 12/26/23 08:00 Pulse 85 12/26/23 08:00 Resp 18 12/26/23 08:00 BP 120/74 12/26/23 08:00 Pulse Ox 92 L 12/26/23 08:00 O2 Del Method Room Air 12/26/23 08:00 O2 Flow Rate 2 12/26/23 04:00 Documenting provider has reviewed patient's vital signs: yes Common normals: apparent distress (Mild painful distress) Chest Common normals: inspection of chest normal Respiratory Common normals: normal respiratory effort Auscultation: diminished lung sounds Cardio Common normals: regular rate and regular rhythm GI Common normals: Normal to inspection, nondistended, normoactive bowel sounds present, soft to palpation and no masses; tender (Moderate tenderness, no rebound tenderness) Extremity Common normals: normal to inspection and full ROM Progress Note: Objective Labs Labs: Short CBC 12/26/23 Range/Units 04:14 WBC 3.5 L (4.0-11.0) 10^3/uL Hgb 12.2 (12.0-16.0) g/dL Hct 38.9 (36.0-48.0) % Plt Count 132 L (150-450) 10^3/uL BMP 12/26/23 04:14 Sodium 140 Potassium 3.9 Chloride 106 Carbon Dioxide 29.4 BUN 11.0 Creatinine 0.95 Glucose 104 Calcium 8.9 Liver Function 12/26/23 Range/Units 04:14 Total Bilirubin 0.1 L (0.2-1.0) mg/dL AST 25 (15-37) U/L ALT 18 (14-59) U/L Alkaline Phosphatase 84 (46-116) U/L Albumin 3.0 L (3.4-5.0) g/dL Progress Note: A&P Assessment and Plan (1) Pancolitis: Assessment and Plan: Pain is persisting, white blood cell count normal, maintain current antibiotics. Check occult blood his hemoglobin is down today almost -possible acute blood loss. (2) Esophagitis: Assessment and Plan: Added Carafate as pain is persisting and difficulty swallowing (3) Depression: (4) COPD (chronic obstructive pulmonary disease): Assessment and Plan: Check chest x-ray secondary to requiring supplemental oxygen during the day.-X-ray yesterday was normal Qualifiers: COPD type: unspecified COPD Qualified Code(s): J44.9 - Chronic obstructive pulmonary disease, unspecified (5) Hypothyroid: Qualifiers: Hypothyroidism type: acquired Qualified Code(s): E03.9 - Hypothyroidism, unspecified Plan Pain persisting, unable to eat although is somewhat better, cut back on IV fluids, encourage p.o. intake Patient still with significant dyspnea and dizziness, more headache this morning. Check CT scan brain Encourage ambulation with physical therapy, she is only been able to get up to the bathroom which is currently her bedside commode. Depending on progression of today patient may need rehab versus home tomorrow. More aggressive physical therapy today. Encourage p.o. intake. If tolerates that and ambulating safely possible discharge tomorrow
[2023-12-26] MEDS: LACTATED RINGER'S SOLUTION 1,000 ML 75 ML IV (12:06)
[2023-12-26] MEDS: PANTOPRAZOLE SODIUM 40 MG VIAL IV (16:35)
[2023-12-26] MEDS: LAMOTRIGINE 25 MG TABLET 50 MG PO (21:04)
[2023-12-27] VITALS: BP 91/46; PULSE 76; RESP 16; TEMP 36.6; O2SAT 91
[2023-12-27 03:50] VITALS: BP 129/84; PULSE 85; RESP 16; TEMP 36.4; O2SAT 90
[2023-12-27] MEDS: LACTATED RINGER'S SOLUTION 1,000 ML 75 ML IV (03:51)
[2023-12-27 05:02] VITALS: O2SAT 90
[2023-12-27] MEDS: LEVOTHYROXINE SODIUM 125 MCG TABLET PO (05:34)
[2023-12-27] MEDS: METRONIDAZOLE/SODIUM CHLORIDE 500 MG/100 ML PREMIX 100 MG IV (05:34)
[2023-12-27] MEDS: ONDANSETRON PF 4 MG/2 ML VIAL IV (05:37)
[2023-12-27 05:48] LABS: Basophils Percent Auto 0.4 % (0.2-2.0); Eosinophils Absolute Auto 0.3 10^3/uL (0.0-0.7); Eosinophils Percent Auto 5.5 % (0.9-7.0); Hematocrit 42.8 % (36.0-48.0); Hemoglobin 13.4 g/dL (12.0-16.0); Immature Granulocytes Abs Auto 0.01 10^3/uL (0.00-0.03); Immature Granulocytes Pct Auto 0.2 % (0.0-0.5); Lymphocytes Absolute Auto 1.3 10^3/uL (1.2-3.8); Lymphocytes Percent Auto 27.8 % (20.5-60.0); Mean Corpuscular HGB Conc 31.3 g/dL (29.9-35.2); Mean Corpuscular Hemoglobin 28.2 pg (26.7-34.0); Mean Corpuscular Volume 89.9 fL (81.0-99.0); Mean Platelet Volume 10.8 fL (9.5-13.5); Monocytes Absolute Auto 0.4 10^3/uL (0.3-0.8); Monocytes Percent Auto 7.7 % (1.7-12.0); Neutrophils Absolute Auto 2.7 10^3/uL (1.4-6.5); Neutrophils Percent Auto 58.4 % (43.0-75.0); Platelet Count 165 10^3/uL (150-450); Red Blood Count 4.76 10^6/uL (4.20-5.40); Red Cell Distribution Width 13.3 % (11.0-15.0); White Blood Count 4.5 10^3/uL (4.0-11.0)
[2023-12-27 06:23] LABS: Alanine Aminotransferase 22 U/L (14-59); Albumin Globulin Ratio 0.9; Albumin Level 3.2 g/dL (3.4-5.0); Alkaline Phosphatase 96 U/L (46-116); Anion Gap 11.3; Aspartate Amino Transferase 30 U/L (15-37); Bilirubin Total 0.3 mg/dL (0.2-1.0); Calcium 8.8 mg/dL (8.5-10.1); Carbon Dioxide 25.7 mmol/L (21.0-32.0); Chloride 104 mmol/L (98-107); Estimated GFR (African America >60 (>=60); Estimated GFR (Non-African Ame >60 (>=60); Globulin 3.5 g/dL; Glucose 97 mg/dL (74-106); Sodium 137 mmol/L (136-145); Total Protein 6.7 g/dL (6.4-8.2)
[2023-12-27 07:19] VITALS: BP 121/74; PULSE 81; RESP 20; TEMP 36.5; O2SAT 92
[2023-12-27] MEDS: HYOSCYAMINE SULFATE 0.125 MG TAB.SUBL 0.25 MG SL (07:43)
--- NOTE | 2023-12-27 07:46 | P.DS_ITS ---
DS: Providers Provider Date of admission: 12/22/23 20:36 Primary care physician: Paulo Turner MD Consults: 12/25/23 08:00 Occupational Therapy Eval and Treat Routine Reason for consultation: eval if going to rehab Has provider been notified: No Physical Therapy Eval and Treat Routine Reason for consultation: eval Has provider been notified: No 12/26/23 08:56 Physical Therapy Eval and Treat Routine Reason for consultation: needs to walk in halls Has provider been notified: No DS: Diagnosis Discharge Diagnosis (1) Pancolitis: (2) Esophagitis: (3) Depression: (4) COPD (chronic obstructive pulmonary disease): Qualifiers: COPD type: unspecified COPD Qualified Code(s): J44.9 - Chronic obstructive pulmonary disease, unspecified (5) Hypothyroid: Qualifiers: Hypothyroidism type: acquired Qualified Code(s): E03.9 - Hypothyroidism, unspecified Plan Pain persisting, unable to eat although is somewhat better, cut back on IV fluids, encourage p.o. intake Patient still with significant dyspnea and dizziness, more headache this morning. ? DS: Summary Hospital Course Hospital Course: Patient admitted with increasing abdominal pain and severe diarrhea. CT scan shows pancolitis. Patient was placed on IV antibiotics. Her nausea vomiting was slow to improve. I suspect she has some significant esophagitis with it. She was on Protonix. We added Carafate and she has been able to eat better in the last 24 hours. Still weak with ambulation but suspect that will slowly improve over time. Diarrhea has resolved. Patient did not ambulate significantly well today prior to yesterday prior to discharge. So far is better this morning. She is safer for discharge to home currently. F patient eats well this morning she will be discharged home in improving condition. Medications see list. See me in the office within the next week. Time Spent with Patient Time attestation: Total time spent providing and/or coordinating discharge services: Exam Constitutional Vital Signs, click to edit/add: Last Vital Signs Temp 97.7 F 12/27/23 07:19 Pulse 81 12/27/23 07:19 Resp 20 12/27/23 07:19 BP 121/74 12/27/23 07:19 Pulse Ox 92 L 12/27/23 07:19 O2 Del Method Room Air 12/27/23 07:19 O2 Flow Rate 2 12/27/23 00:00 Documenting provider has reviewed patient's vital signs: yes Common normals: apparent distress (Mild painful distress) Chest Common normals: inspection of chest normal Respiratory Common normals: normal respiratory effort Auscultation: diminished lung sounds Cardio Common normals: regular rate and regular rhythm GI Common normals: Normal to inspection, nondistended, normoactive bowel sounds present, soft to palpation and no masses; tender (Tenderness has significantly improved) Extremity Common normals: normal to inspection and full ROM DS: Data Data Completed and Pending Labs on day of discharge: Labs from last 24 hours 12/27/23 04:26 WBC 4.5 RBC 4.76 Hgb 13.4 Hct 42.8 MCV 89.9 MCH 28.2 MCHC 31.3 RDW 13.3 Plt Count 165 MPV 10.8 Neut % (Auto) 58.4 Lymph % (Auto) 27.8 [place] % (Auto) 7.7 Eos % (Auto) 5.5 Baso % (Auto) 0.4 Neut # (Auto) 2.7 Lymph # (Auto) 1.3 [place] # (Auto) 0.4 Eos # (Auto) 0.3 Baso # (Auto) 0.0 Abs Immat Gran (auto) 0.01 Imm/Tot Granulo (auto) 0.2 Sodium 137 Potassium 4.0 Chloride 104 Carbon Dioxide 25.7 Anion Gap 11.3 BUN 12.0 Creatinine 0.92 Est GFR ( Amer) >60 Est GFR (Non-Af Amer) >60 BUN/Creatinine Ratio 13.0 Glucose 97 Calcium 8.8 Total Bilirubin 0.3 AST 30 ALT 22 Alkaline Phosphatase 96 Total Protein 6.7 Albumin 3.2 L Globulin 3.5 Albumin/Globulin Ratio 0.9 Discharge Plan Discharge Disposition: Home, Self-Care Condition: Good Discharge Medications: New sucralfate 1 gram Tablet 1 g PO ACHS Qty: 120 11RF ciprofloxacin HCl [Cipro] 500 mg tablet 500 mg PO Q12H Qty: 14 0RF metronidazole 500 mg tablet 500 mg PO Q8H 7 Days Qty: 21 0RF ondansetron 4 mg tablet,disintegrating 4 mg PO Q6H PRN (Reason: nausea and vomiting) Qty: 20 3RF Continued bupropion HCl 300 mg tablet extended release 24 hr 300 mg PO DAILY cholecalciferol (vitamin D3) 50 mcg (2,000 unit) capsule 50 mcg PO DAILY citalopram 20 mg tablet 20 mg PO DAILY lamotrigine 25 mg tablet 50 mg PO BEDTIME lansoprazole 30 mg capsule,delayed release(DR/EC) 30 mg PO DAILY levothyroxine 125 mcg tablet 125 mcg PO DAILY simvastatin 20 mg tablet 20 mg PO DAILY triamcinolone acetonide 0.1 % paste 1 applic dental BID loratadine [Allergy Relief (loratadine)] 10 mg tablet 10 mg PO DAILY docusate sodium [Col-Rite] 100 mg capsule 100 mg PO PRN Print Language: Bengali Forms: Portal Instructions
[2023-12-27] MEDS: ATORVASTATIN CALCIUM 10 MG TABLET PO (08:26)
[2023-12-27] MEDS: CITALOPRAM HYDROBROMIDE 20 MG TABLET PO (08:26)
[2023-12-27] MEDS: BUPROPION HCL 150 MG XL TABLET 24H 300 MG PO (08:26)
[2023-12-27] MEDS: CIPROFLOXACIN IN 5 % DEXTROSE 400 MG/200 ML PIGGYBACK 100 MG IV (08:26)
[2023-12-27] MEDS: CHOLECALCIFEROL (VITAMIN D3) 25 MCG/1,000 UNITS TABLET 50 MCG PO (08:26)
[2023-12-27] MEDS: CETIRIZINE HCL 10 MG TABLET PO (08:26)
[2023-12-27 12:48] LABS: Occult Blood Negative
[2023-12-27] MEDS: SUCRALFATE 1 GM TABLET PO (17:02)
--- NOTE | 2023-12-29 13:45 | CM.DCFOLLOWU ---
12/28- 1st attempt. No answer
--- NOTE | 2024-01-01 16:23 | CM.DCFOLLOWU ---
2nd attempt discharge follow up call no answer 01/01/24
== END 2023-12-27 17:40 | disposition home or self-care (01) | DRG 249 ==
LOC: ER 20:12 → MS 20:41
PROVIDERS: Emergency Medicine; Family Medicine; Registered Nurse; Admitting Provider Family Medicine; Emergency Provider Emergency Medicine; PCP Family Medicine; Visit Provider Family Medicine
DX: K52.9 Noninfective gastroenteritis and colitis, unspecified (principal); K20.90 Esophagitis, unspecified without bleeding; F32.A Depression, unspecified; J43.9 Emphysema, unspecified; E03.9 Hypothyroidism, unspecified; E78.5 Hyperlipidemia, unspecified; K21.9 Gastro-esophageal reflux disease without esophagitis; I27.20 Pulmonary hypertension, unspecified; Z90.89 Acquired absence of other organs; Z99.81 Dependence on supplemental oxygen; Z95.0 Presence of cardiac pacemaker; Z90.49 Acquired absence of other specified parts of digestive tract; Z98.890 Other specified postprocedural states; Z79.899 Other long term (current) drug therapy; Z79.890 Hormone replacement therapy
CPT/HCPCS: 36415; 70450; 71046; 74177; 80053; 81003; 83735; 85025; 87493; 87507; 93005; 94761; 96361; 96365; 96366; 96367; 96375; 96376; 97161; 97165; 99285; G0328; Q9967

== ENCOUNTER 2023-12-27 19:56 | Observation (INO) | payer OTHER, SELFPAY ==
[2023-12-27] VITALS (11 sets, daily range): BP systolic 127–135; BP diastolic 76–81; PULSE 69–88; RESP 16–25; TEMP 36.2–36.4; O2SAT 92–98; BMI 20.5; BMI 17.4
--- OUTSIDE RECORDS SUMMARY | 2023-12-27 20:03 | XMS_ITS | CCD ---
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 [facility] Comment on above: Performed By: #### C BCMAN ####[facility] Nkuwympmzv[address] [place], [place] [address]Dr. Shahbaz Rogel BASOM % 0.0 % Critically low 0.2-2.[address] [facility] Comment on above: Performed By: #### C BCMAN ####[facility] [address] [place] [id number]. Shahbaz Rogel BLAST # Normal [facility] Comment on above: Performed By: #### C BCMAN ####[facility] [address]xf[address]dyjidp[address] [place] [address]Dr. Shahbaz Rogel BLAST % Normal The [facility] Comment on above: Performed By: #### C BCMAN ####[facility] Lyrtaruqsh[address] [place] [address]Dr. Shahbaz Rogel CORRECTED WBC Normal 4.0-11.0 [facility] Comment on above: Performed By: #### C BCMAN ####[facility] Ejfyiidqon49[address] [place], [place] [address]Dr. Shahbaz Rogel EOS # 0.00 103/ul Normal 0.00-0.70 [facility] Comment on above: Performed By: #### C BCBRICE ####[facility] Veoroeabuc4[address] [place], [place] [address]Dr. Shahbaz Rogel EOS% 0.0 % Critically low 0.9-7.0 [facility] Comment on above: Performed By: #### C BCBRICE ####[facility] Jjaxptuaxk33[address] [place], [place] [address]Dr. Shahbaz Rogel HCT 36.5 % Normal 36.0-48.0 [facility] Comment on above: Performed By: #### C BCBRICE ####[facility] Qjakyzfdjk[address] [place], [place] [address]Dr. Shahbaz Rogel HGB 11.8 g/dl Critically low 12.0-16.[address] [facility] Comment on above: Performed By: #### C BCBRICE ####[facility] Rsncerfnsp[address] [place], [place] [address]Dr. Shahbaz Rogel LYMPHM # 0.42 103/ul Critically low 1.20-3.[address] [facility] Comment on above: Performed By: #### C BCMAN ####[facility] [address]zvxtzjmfz[address] [place], [place] [address]Dr. Shahbaz Rogel LYMPHM% 12.0 % Critically low 20.5-60.[address] [facility] Comment on above: Performed By: #### C CAIN ####[facility] [address]tr[address]ifyn[address] [place] [id number]. Shahbaz Rogel MCH 28.0 pg Normal 26.7-34.[address] [facility] Comment on above: Performed By: #### C CAIN ####[facility] Ybtveudgxi07[address] [place] [id number]. Shahbaz Rogel MCHC 32.3 g/dl Normal 29.9-35.[address] [facility] Comment on above: Performed By: #### C CAIN ####[facility] Ojhzbynpxy7[address] [place] [id number]. Shahbaz Rogel MCV 86.7 fL Normal 81.0-99.[address] [facility] Comment on above: Performed By: #### C CAIN ####[facility] Admqisgqfj37[address] [place] [address]Dr. Shahbaz Rogel METAMYELOCYTE # Normal The [facility] Comment on above: Performed By: #### Cheri BARLOW ####[facility] Umyfdxiquq[address] [place], [place] [address]Dr. Shahbaz Rogel METAMYELOCYTE % Normal [facility] Comment on above: Performed By: #### Cheri BARLOW ####[facility] Zvaalzrlpl4[address] [place], [place] [address]Dr. Shahbaz Rogel MONOM# 0.07 103/ul Critically low 0.30-0.[address] [facility] Comment on above: Performed By: #### C CAIN ####[facility] Ojmicsgefi6[address] [place] [id number]. Shahbaz Rogel MONOM% 2.0 % Normal 1.7-12.[address] [facility] Comment on above: Performed By: #### C CAIN ####[facility] Xxtwefhyun74[address] [place], [place] [address]Dr. Shahbaz Rogel MPV 9.9 fL Normal 9.5-13.[address] [facility] Comment on above: Performed By: #### C CAIN ####[facility] Tqmpiialeu4717[address] [place], [place] [address]Dr. Shahbaz Rogel MYELOCYTE # Normal The [facility] Comment on above: Performed By: #### C CAIN ####[facility] Zwtlzpxdyf8103 [place] [id number]. Shahbaz Rogel MYELOCYTE % Normal The [facility] Comment on above: Performed By: #### C CAIN ####[facility] Mxvbxutchn22[address] [place] [phone]. Shahbaz Rogel NRBC Normal [facility] Comment on above: Performed By: #### C CAIN ####[facility] Gtpgjkgtzl8[address] [place] [phone]. Shahbaz Rogel PLT 178 103/ul Normal 150-450 [facility] Comment on above: Performed By: #### C CAIN ####[facility] Dndyurdmuk69[address] [place] [address]Dr. Shahbaz Rogel RBC 4.21 106/ul Normal 4.20-5.40 [facility] Comment on above: Performed By: #### C CAIN ####[facility] Qwpxqbhbxz43[address] [place], [place] [address]Dr. Shahbaz Rogel RDW 13.2 % Normal 11.0-15.0 [facility] Comment on above: Performed By: #### C CAIN ####[facility] Ernpcjpwsa[address] [place], [place] [address]Dr. Shahbaz Rogel SEG # 3.01 103/ul Normal 1.40-6.50 [facility] Comment on above: Performed By: #### C CAIN ####[facility] Hfrtqepcvn5[address] [place], [place] [address]Dr. Shahbaz Rogel SEG % 86.0 % Critically high 43.0-75.0 [facility] Comment on above: Performed By: #### C CAIN ####[facility] Dzcydatmqw5[address] [place] [id number]. Shahbaz Rogel WBC 3.5 103/ul Critically low 4.0-11.0 [facility] Comment on above: Performed By: #### C CAIN ####[facility] Utzwtkxfbq[address] [place], [place] [address]Dr. Shahbaz Rogel PROF CHEM 8 (BAS METB)on Anion gap [Moles/Vol] 10.5 mmol/L Normal [facility] Comment on above: Performed By: #### B MP ####[facility] Ikedkuxwux4[address] [place], [place] [address]Dr. Shahbaz Rogel Calcium [Mass/Vol] 8.7 mg/dL Normal 8.5-10.1 [facility] Comment on above: Performed By: #### B MP ####[facility] Tzvlgpuiek[address] [place], [place] [address]Dr. Shahbaz Rogel Chloride [Moles/Vol] 108 mmol/L Critically high 98-107 [facility] Comment on above: Performed By: #### B MP ####[facility] Ryvgquztqr[address] [place], [place] [address]Dr. Shahbaz Rogel CO2 [Moles/Vol] 25.2 mmol/L Normal 21.0-32.0 [facility] Comment on above: Performed By: #### B MP ####[facility] Yqwqnjfbqu7[address] [place], [place] [address]Dr. Shahbaz Rogel Creatinine [Mass/Vol] 0.77 mg/dL Normal 0.55-1.02 [facility] Comment on above: Performed By: #### B MP ####[facility] Ugacxjguxh[address] [place], [place] [address]Dr. Shahbaz Rogel EGFR-AF CITIZ[place] >60 Normal >=60 [facility] Comment on above: Performed By: #### B MP ####[facility] Hgczptklwo[address] [place], [place] [address]Dr. Shahbaz Rogel EGFR-NON AF CITIZEN OF [place] >60 Normal >=60 [facility] Comment on above: Performed By: #### B MP ####[facility] Zvltmgldqy[address] [place], [place] [address]Dr. Shahbaz Rogel Glucose [Mass/Vol] 169 mg/dL Critically high 74-106 [facility] Comment on above: Performed By: #### B MP ####[facility] Xvwmfsjtnt6969[address] [place], [place] [address]Dr. Shahbaz Rogel Potassium [Moles/Vol] 3.7 mmol/L Normal 3.5-5.[address] [facility] Comment on above: Performed By: #### B MP ####[facility] Kbsvnisfln[address] [place], [place] [address]Dr. Shahbaz Rogel Sodium [Moles/Vol] 140 mmol/L Normal 136-[address] [facility] Comment on above: Performed By: #### B MP ####[facility] Emfbdebtox6310[address] [place], [place] [address]Dr. Shahbaz Rogel Urea nitrogen [Mass/Vol] 14.0 mg/dL Normal 7.0-18.[address] [facility] Comment on above: Performed By: #### B MP ####[facility] Cxvqfdiydz[address] [place], [place] [address]Dr. Shahbaz Rogel Urea nitrogen/Creatinine [Mass ratio] 18.2 mg/mg Normal [facility] Comment on above: Performed By: #### B MP ####[facility] Qopcfblsjz[address] [place], [place] [address]Dr. Shahbaz Rogel RESPIRATORY PANEL PLUSon Adenovirus Not detected Normal NOT DETECTED [facility] Comment on above: Performed By: #### R SPLUS ####[facility] Oenbwwmjyj[address] [place], [place] [address]Dr. Shahbaz Rogel B. Parapertusis Not detected Normal NOT DETECTED The [facility] Comment on above: Performed By: #### R SPLUS ####[facility] Kthjtksppd[address] [place], [place] [address]Dr. Shahbaz Rogel B. Pertussis Not detected Normal NOT DETECTED The [facility] Comment on above: Performed By: #### R SPLUS ####[facility] Tmramuapij186[address] [place], [place] [address]Dr. Shahbaz Rogel Chlamydia Pneumoniae Not detected Normal NOT DETECTED The [facility] Comment on above: Performed By: #### R SPLUS ####[facility] Rzeaehfohp12[address] [place], [place] [address]Dr. Shahbaz Rogel Coronavirus 229E Not detected Normal NOT DETECTED The [facility] Comment on above: Performed By: #### R SPLUS ####[facility] Oifvpfhlmv[address] [place], [place] [address]Dr. Shahbaz Rogel Coronavirus HKU1 Not detected Normal NOT DETECTED The [facility] Comment on above: Performed By: #### R SPLUS ####[facility] Zbhcvoohyy22[address] [place], [place] [address]Dr. Shahbaz Rogel Coronavirus NL63 Not detected Normal NOT DETECTED The [facility] Comment on above: Performed By: #### R SPLUS ####[facility] Pnbobyefca32[address] [place], [place] [address]Dr. Shahbaz Rogle Coronavirus OC43 Not detected Normal NOT DETECTED The [facility] Comment on above: Performed By: #### R SPLUS ####[facility] Nfezfybpos10[address] [place], [place] [address]Dr. Shahbaz Rogel Influenza A H1 Not detected Normal NOT DETECTED The [facility] Comment on above: Performed By: #### R SPLUS ####[facility] Rjhmqibnul33[address] [place], [place] [address]Dr. Shahbaz Rogel Influenza A H1 2009 Not detected Normal NOT DETECTED [facility] Comment on above: Performed By: #### R SPLUS ####[facility] Xhcxiuxsuu99[address] [place], [place] [address]Dr. Shahbaz Rogel Influenza A H3 Not detected Normal NOT DETECTED The [facility] Comment on above: Performed By: #### R SPLUS ####[facility] Bwwyqiedhr[address] [place], [place] [address]Dr. Shahbaz Rogel Influenza B Not detected Normal NOT DETECTED The [facility] Comment on above: Performed By: #### R SPLUS ####[facility] Whhcvzumhv[address] [place], [place] [address]Dr. Lilajarrod Rogel Metapneumovirus Detected Abnormal NOT DETECTED The [facility] Comment on above: Performed By: #### R SPLUS ####[facility] Aojuvecscq[address] [place], [place] [address]Dr. Shahbaz Rogel Mycoplas. Pneumoniae Not detected Normal NOT DETECTED The [facility] Comment on above: Performed By: #### R SPLUS ####[facility] Jibjfgwbah76[address] [place], [place] [address]Dr. Shahbaz Rogel Parainfluenza 1 Not detected Normal NOT DETECTED The [facility] Comment on above: Performed By: #### R SPLUS ####[facility] Kzlvwzojqq[address] [place], [place] [address]Dr. Shahbaz Rogel Parainfluenza 2 Not detected Normal NOT DETECTED The [facility] Comment on above: Performed By: #### R SPLUS ####[facility] Tvffhvlavk[address] [place], [place] [address]Dr. Shahbaz Rogel Parainfluenza 3 Not detected Normal NOT DETECTED The [facility] Comment on above: Performed By: #### R SPLUS ####[facility] Zmydranjqm9[address] [place], [place] [address]Dr. Shahbaz Rogel Parainfluenza 4 Not detected Normal NOT DETECTED The [facility] Comment on above: Performed By: #### R SPLUS ####[facility] Ftpbctmvul[address] [place], [place] [address]Dr. Shahbaz Rogel Rhino/Enterovirus Not detected Normal NOT DETECTED The [facility] Comment on above: Performed By: #### R SPLUS ####[facility] Ngerejzqhw[address] [place], [place] [address]Dr. Shahbaz Rogel RP2 Header 1 RESPIRATORY PANEL: VIRUSES Normal [facility] Comment on above: Performed By: #### R SPLUS ####[facility] Zwuvhducdc[address] [place], [place] [address]Dr. Shahbaz Rogel RP2 Header 2 RESPIRATORY PANEL: BACTERIA Normal [facility] Comment on above: Performed By: #### R SPLUS ####[facility] [address]hlhzuzmj[address] [place], [place] [address]Dr. Shahbaz Rogel RSV Not detected Normal NOT DETECTED The [facility] Comment on above: Performed By: #### R SPLUS ####[facility] Lmdemsfbsi[address] [place], [place] [address]Dr. Shahbaz Rogel SARS-CoV-2 (COVID-19) RNA PAVAN+probe Ql (Unsp spec) Not detected Normal NOT DETECTED [facility] Comment on above: Performed By: #### R SPLUS ####[facility] Nqqktxanvl[address] [place], [place] [address]Dr. Shahbaz Rogel CARDIAC ROSALINA 3-6on 3 CK [Catalytic activity/Vol] 148 U/L Normal 26-[address] [facility] Comment on above: Performed By: #### C MREP ####[facility] [address]xgoagk[address] [place] [address]Dr. Shahbaz Rogel CK.MB [Mass/Vol] 0.84 ng/mL Normal <=3.[address] [facility] Comment on above: Performed By: #### C MREP ####[facility] Kttygseino[address] [place] [address]Dr. Shahbaz Rogel HSTROP 6.4 pg/mL Normal 4.0-51.[address] [facility] Comment on above: Result Comment: CUT- OFF POINTS HAVE BEEN ESTABLISHED BASED ON THE FOURTH UNIVERSAL DEFINITIONS OF MYOCARDIALINFARCTION. THE UPPER REFERENCE LIMIT (URL) OF TROPONIN, DEFINED THE 99TH PERCENTILE OFcTnI DISTRIBUTION IN A REFERENCE POPULATION, HAS BEEN CONFIRMED THE DECISION THRESHOLDFOR SD DIAGNOSIS. Performed By: #### C MREP ####[facility] Hirsuoxndy[address] [place] [address]Dr. Shahbaz Rogel CBC W MANUAL DIFFon 01-04-20 23 ATYPICAL LYMPH # Normal [facility] Comment on above: Performed By: #### C CAIN ####[facility] Pvfmfvzdac[address] [place] [address]Dr. Shahbaz Rogel ATYPICAL LYMPH % Normal [facility] Comment on above: Performed By: #### C BCMAN ####[facility] Osdoapclcf[address] [place] [address]Dr. Shahbaz Juan F BAND # 0.0 103/ul Normal 0.0-0.[address] [facility] Comment on above: Performed By: #### C CHANELMAN ####[facility] Emgwcvkpmw[address] [place] [address]Dr. Shahbaz Juan F BAND % 0 % Normal 0-[address] [facility] Comment on above: Performed By: #### C BCMAN ####[facility] Ltuiqjwwno[address] [place] [address]Dr. Shahbaz Juan F BASOM # 0.00 103/ul Normal 0.00-0.[address] [facility] Comment on above: Performed By: #### C CAIN ####[facility] Rrkyfcryxt30[address] [place] [address]Dr. Shahbaz Rogel BASOM % 0.0 % Critically low 0.2-2.0 [facility] Comment on above: Performed By: #### C CAIN ####[facility] Pxohihgkih39[address] [place] [address]Dr. Shahbaz Rogel BLAST # Normal [facility] Comment on above: Performed By: #### C CAIN ####[facility] Ydkuzrhbrp[address] [place], [place] [address]Dr. Shahbaz Rogel BLAST % Normal [facility] Comment on above: Performed By: #### C CAIN ####[facility] Alcsgklfoe[address] [place], [place] [address]Dr. Shahbaz Rogel CORRECTED WBC Normal 4.0-11.[address] [facility] Comment on above: Performed By: #### C CAIN ####[facility] Armpypzaui[address] [place], [place] [address]Dr. Shahbaz Rogel EOS # 0.02 103/ul Normal 0.00-0.[address] [facility] Comment on above: Performed By: #### C CAIN ####[facility] Mauzslljqy[address] [place], [place] [address]Dr. Shahbaz Rogel EOS% 1.0 % Normal 0.9-7.[address] [facility] Comment on above: Performed By: #### C CAIN ####[facility] Qvfbereuix[address] [place], [place] [address]Dr. Shahbaz Rogel HCT 37.5 % Normal 36.0-48.[address] [facility] Comment on above: Performed By: #### C CAIN ####[facility] Hjxcoqvjdo[address] [place], [place] [address]Dr. Shahbaz Rogel HGB 12.0 g/dl Normal 12.0-16.[address] [facility] Comment on above: Performed By: #### C CAIN ####[facility] Vrhtktvuev[address] [place], [place] [address]Dr. Shahbaz Rogel LYMPHM # 0.21 103/ul Critically low 1.20-3.[address] [facility] Comment on above: Performed By: #### C CAIN ####[facility] Rappewzocu3[address] [place] [id number]. Shahbaz Rogel LYMPHM% 13.0 % Critically low 20.5-60.0 [facility] Comment on above: Performed By: #### C CAIN ####[facility] Uoeqmkfxrz3834 [place] [id number]. Shahbaz Rogel MCH 27.8 pg Normal 26.7-34.[address] [facility] Comment on above: Performed By: #### C CAIN ####[facility] Qjqsqkbkwz1223 [place] [address]Dr. Shahbaz Rogel MCHC 32.0 g/dl Normal 29.9-35.[address] [facility] Comment on above: Performed By: #### C CIAN ####[facility] Rpqmmiqyoj[address] [place], [place] [address]Dr. Shahbaz Rogel MCV 86.8 fL Normal 81.0-99.[address] [facility] Comment on above: Performed By: #### C CAIN ####[facility] Uurlstjamh[address] [place], [place] [address]Dr. Shahbaz Rogel METAMYELOCYTE # Normal [facility] Comment on above: Performed By: #### C CAIN ####[facility] Scavarcxxj0439 [place] [address]Dr. Shahbaz Rogel METAMYELOCYTE % Normal [facility] Comment on above: Performed By: #### C CAIN ####[facility] Uikdjydbch32[address] [place] [id number]. Shahbaz Rogel MONOM# 0.02 103/ul Critically low 0.30-0.[address] [facility] Comment on above: Performed By: #### C CAIN ####[facility] Skouoxrxjn[address] [place] [address]Dr. Shahbaz Rogel MONOM% 1.0 % Critically low 1.7-12.[address] [facility] Comment on above: Performed By: #### C CAIN ####[facility] Qrztmajwsv4341 [place], [place] [address]Lw. Shahbaz Rogel MPV 9.5 fL Normal 9.5-13.[address] [facility] Comment on above: Performed By: #### C CAIN ####[facility] Apjehjzbcw8900 [place], [place] [address]Lb. Shahbaz Rogel MYELOCYTE # Normal [facility] Comment on above: Performed By: #### C CAIN ####[facility] Uelxppwsta4937 [place] [phone]. Shahbaz Rogel MYELOCYTE % Normal [facility] Comment on above: Performed By: #### C CAIN ####[facility] Nixpwdjvlb3676 [place] [phone]. Shahbaz Rogel NRBC Normal [facility] Comment on above: Performed By: #### C CAIN ####[facility] Ikxptdozwd8805 [place] [phone]. Shahbaz Rogel PLT 173 103/ul Normal 150-[address] [facility] Comment on above: Performed By: #### C CAIN ####[facility] Tvyxqevvte3779 [place] [phone]. Shahbaz Rogel RBC 4.32 106/ul Normal 4.20-5.40 [facility] Comment on above: Performed By: #### C CAIN ####[facility] Muchsphkdl0336 [place] [phone]. Shahbaz Rogel RDW 13.1 % Normal 11.0-15.[address] [facility] Comment on above: Performed By: #### C CAIN ####[facility] Qavqifszgx6149 [place] [id number]. Shahbaz Rogel SEG # 1.36 103/ul Critically low 1.40-6.[address] [facility] Comment on above: Performed By: #### C CAIN ####[facility] Yvzrepuvsl8657 [place] [id number]. Shahbaz Rogel SEG % 85.0 % Critically high 43.0-75.0 [facility] Comment on above: Performed By: #### C CAIN ####[facility] Vgyftycwix0885 [place] [address]Dr. Shahbaz Rogel WBC 1.6 103/ul Critically low 4.0-11.0 [facility] Comment on above: Performed By: #### C CAIN ####[facility] Wmfeoxiavs[address] [place], [place] [address]Dr. Shahbaz Rogel CT CHEST WO CONon 3 CT CHEST WO CON Normal [facility] ER URINE PROFILEon 3 Bilirubin Ql (U) Negative Normal NEGATIVE The [facility] Comment on above: Performed By: #### E RUR ####[facility] Bcvbpexmyo[address] [place], [place] [address]Dr. Shahbaz Rogel Clarity (U) CLEAR Normal CLEAR [facility] Comment on above: Performed By: #### E RUR ####[facility] Ildmysryqy[address] [place], [place] [address]Dr. Shahbaz Rogel Color (U) LT. YELLOW Normal YELLOW The [facility] Comment on above: Performed By: #### E RUR ####[facility] Sxwtqinhkv94[address] [place], [place] [address]Dr. Shahbaz Rogel ERUAHD A micrscopic examina tion will be performed if indicated. Normal The [facility] Comment on above: Performed By: #### E RUR ####[facility] Zaahfmuoyv[address] [place], [place] [address]Dr. Shahbaz Rogel Glucose Ql (U) Negative Normal NEGATIVE The [facility] Comment on above: Performed By: #### E RUR ####[facility] Ecrhxhnaxs[address] [place], [place] [address]Dr. Shahbaz Rogel Hemoglobin Ql (U) Negative Normal NEGATIVE The [facility] Comment on above: Performed By: #### E RUR ####[facility] Wjskpzfise[address] [place], [place] [address]Dr. Shahbaz Rogel Ketones Ql (U) Negative Normal NEGATIVE The [facility] Comment on above: Performed By: #### E RUR ####[facility] Xkwglhpfnc[address] [place], [place] [address]Dr. Shahbaz Rogel LEUKOCYTES Negative Normal NEGATIVE [facility] Comment on above: Performed By: #### E RUR ####[facility] Zpvjlqeqca9672 [place] [address]Dr. Shahbaz Rogel Nitrite Ql (U) Negative Normal NEGATIVE [facility] Comment on above: Performed By: #### E RUR ####[facility] Medczntrdn[address] [place], [place] [address]Dr. Shahbaz Rogel pH (U) 6.0 [pH] Normal 5-9 [facility] Comment on above: Performed By: #### E RUR ####[facility] Qvpcyoibax[address] [place], [place] [address]Dr. Shahbaz Rogel SPEC GRAVITY <=1.005 Abnormal 1.005-<=1. 025 [facility] Comment on above: Performed By: #### E RUR ####[facility] Adcigwkqeb[address] [place], [place] [address]Dr. Shahbaz Rogel UA PROTEIN Negative Normal NEGATIVE/ TRACE The [facility] Comment on above: Performed By: #### E RUR ####[facility] Fdoqbjgknh[address] [place], [place] [address]Dr. Shahbaz Rogel UR MICRO IND NOT INDICATED Normal [facility] Comment on above: Performed By: #### E RUR ####[facility] Vvicqioqus[address] [place], [place] [address]Dr. Shahbaz Rogel Urobilinogen Qn (U) 0.2 {Melida'U}/dL Normal 0.2 - 1. 0 [facility] Comment on above: Performed By: #### E RUR ####[facility] Ixjlpxggzs[address] [place], [place] [address]Dr. Shahbaz Rogel LACTATE/LACTIC ACIDon 2022 Lactate [Moles/Vol] 1.5 mmol/L Normal 0.4-2.0 [facility] Comment on above: Performed By: #### L ACT ####[facility] Omtqjeonuj[address] [place], [place] [address]Dr. Shahbaz Rogel PROF CHEM 8 (BAS METB)on Anion gap [Moles/Vol] 11.6 mmol/L Normal [facility] Comment on above: Performed By: #### B MP ####[facility] Pbasvpcsqp80[address] [place] [address]Dr. Lilajarrod Rogel Calcium [Mass/Vol] 8.1 mg/dL Critically low 8.5-10.1 [facility] Comment on above: Performed By: #### B MP ####[facility] Orkxvokhgo[address] [place], [place] [address]Dr. Lilajarrod Juan F Chloride [Moles/Vol] 109 mmol/L Critically high 98-107 [facility] Comment on above: Performed By: #### B MP ####[facility] Pvzqhyxqpm[address] [place], [place] [address]Dr. Lilajarrod Juan F CO2 [Moles/Vol] 25.2 mmol/L Normal 21.0-32.0 [facility] Comment on above: Performed By: #### B MP ####[facility] Bmaiptijbe[address] [place], [place] [address]Dr. Lilajarrod Juan F Creatinine [Mass/Vol] 0.89 mg/dL Normal 0.55-1.02 [facility] Comment on above: Performed By: #### B MP ####[facility] Ppwqnrrnyd[address] [place], [place] [address]Dr. Lilajarrod Juan F EGFR-AF CITIZEN OF [place] >60 Normal >=60 [facility] Comment on above: Performed By: #### B MP ####[facility] Kcfubudhem[address] [place], [place] [address]Dr. Shahbaz Rogel EGFR-NON AF CITIZEN OF [place] >60 Normal >=60 [facility] Comment on above: Performed By: #### B MP ####[facility] Rccggslzsk[address] [place], [place] [address]Dr. Shahbaz Rogel Glucose [Mass/Vol] 167 mg/dL Critically high 74-106 [facility] Comment on above: Performed By: #### B MP ####[facility] Oqfjapwbxu[address] [place], [place] [address]Dr. Shahbaz Rogel Potassium [Moles/Vol] 3.8 mmol/L Normal 3.5-5.1 [facility] Comment on above: Performed By: #### B MP ####[facility] Rcxkkmixwh37[address] [place] [address]Dr. Shahbaz Juan F Sodium [Moles/Vol] 142 mmol/L Normal 136-[address] [facility] Comment on above: Performed By: #### B MP ####[facility] Shgjqlldif2030 [place] [phone]. Shahbaz Juan F Urea nitrogen [Mass/Vol] 9.0 mg/dL Normal 7.0-18.[address] [facility] Comment on above: Performed By: #### B MP ####[facility] [address]qhtebdxeg[address] [place], [place] [address]Dr. Shahbaz Juan F Urea nitrogen/Creatinine [Mass ratio] 10.1 mg/mg Normal [facility] Comment on above: Performed By: #### B MP ####[facility] Deshqhflof[address] [place], [place] [address]Dr. Shahbaz Juan F CARDIAC ROSALINA ADMITon 023 CK [Catalytic activity/Vol] 173 U/L Normal 26-[address] [facility] Comment on above: Performed By: #### C EZEKIEL, BMP ####[facility] Fwrruxmybn[address] [place], [place] [address]Dr. Shahbaz Juan F CK.MB [Mass/Vol] 0.55 ng/mL Normal <=3.[address] [facility] Comment on above: Performed By: #### C EZEKIEL, BMP ####[facility] Acmxcbaqyv[address] [place], [place] [address]Dr. Shahbaz Juan F HSTROP 5.9 pg/mL Normal 4.0-51.[address] [facility] Comment on above: Result Comment: CUT- OFF POINTS HAVE BEEN ESTABLISHED BASED ON THE FOURTH UNIVERSAL DEFINITIONS OF MYOCARDIALINFARCTION. THE UPPER REFERENCE LIMIT (URL) OF TROPONIN, DEFINED THE 99TH PERCENTILE OFcTnI DISTRIBUTION IN A REFERENCE POPULATION, HAS BEEN CONFIRMED THE DECISION THRESHOLDFOR SD DIAGNOSIS. Performed By: #### C EZEKIEL, BMP ####[facility] Fzenapiyon[address] [place], [place] [address]Dr. Shahbaz Rogel LEN 76 ng/mL Normal 9-[address] [facility] Comment on above: Performed By: #### C JOSSYM, BMP ####[facility] Jxvmeqxaxc2448 [place] [address]Dr. Shahbaz Rogel CBC W MANUAL DIFFon 01-03-20 23 ATYPICAL LYMPH # Normal [facility] Comment on above: Performed By: #### C CAIN ####[facility] Mbiomcfoyj5252 [place] [address]Dr. Shahbaz Rogel ATYPICAL LYMPH % Normal [facility] Comment on above: Performed By: #### C CAIN ####[facility] Qjiqvvocrr5096 [place] [address]Dr. Shahbaz Rogel BAND # Normal 0.0-0.[address] [facility] Comment on above: Performed By: #### Cheri BARLOW ####[facility] Hlhuflhuoz[address] [place], [place] [address]Dr. Shahbaz Rogel BAND % Normal 0-[address] [facility] Comment on above: Performed By: #### Cheri BARLOW ####[facility] Ervhbjiygp[address] [place], [place] [address]Dr. Shahbaz Rogel BASOM # 0.00 103/ul Normal 0.00-0.[address] [facility] Comment on above: Performed By: #### Cheri BARLOW ####[facility] Lbcgeeahcs[address] [place], [place] [address]Dr. Shahbaz Rogel BASOM % 0.0 % Critically low 0.2-2.[address] [facility] Comment on above: Performed By: #### Cheri BARLOW ####[facility] Bfrffxsmfz[address] [place], [place] [address]Dr. Shahbaz Rogel BLAST # Normal [facility] Comment on above: Performed By: #### Cheri BARLOW ####[facility] Xwbtfrswcr[address] [place], [place] [address]Dr. Shahbaz Rogel BLAST % Normal [facility] Comment on above: Performed By: #### Cheri BARLOW ####[facility] Rztexxxhge[address] [place], [place] [address]Dr. Shahbaz Rogel CORRECTED WBC Normal 4.0-11.[address] [facility] Comment on above: Performed By: #### C CAIN ####[facility] Cwfkcmzyik0956 [place], [place] [address]Nm. Shahbaz Rogel EOS # 0.03 103/ul Normal 0.00-0.[address] [facility] Comment on above: Performed By: #### C CAIN ####[facility] Lnqalagyuv7041 [place] [phone]. Shahbaz Rogel EOS% 1.0 % Normal 0.9-7.[address] [facility] Comment on above: Performed By: #### C CAIN ####[facility] Euemhocwao6710 [place] [phone]. Shahbaz Rogel HCT 42.8 % Normal 36.0-48.[address] [facility] Comment on above: Performed By: #### C CAIN ####[facility] Gflhkrrcde9070 [place] [phone]. Shahbaz Rogel HGB 14.1 g/dl Normal 12.0-16.[address] [facility] Comment on above: Performed By: #### C CAIN ####[facility] Axialkqgfu5693 [place] [phone]. Shahbaz Rogel LYMPHM # 0.64 103/ul Critically low 1.20-3.80 [facility] Comment on above: Performed By: #### C CAIN ####[facility] Bsmjveaxdj9028 [place] [phone]. Shahbaz Rogel LYMPHM% 23.0 % Normal 20.5-60.[address] [facility] Comment on above: Performed By: #### C CAIN ####[facility] Ohdftxkcwa7703 [place] [phone]. Shahbaz Rogel MCH 28.0 pg Normal 26.7-34.[address] [facility] Comment on above: Performed By: #### C CAIN ####[facility] Zasinnmaua7922 [place] [phone]. Shahbaz Rogel MCHC 32.9 g/dl Normal 29.9-35.[address] [facility] Comment on above: Performed By: #### Cheri BARLOW ####[facility] Vhlhdlnqpo9808 [place] [phone]. Shahbaz Rogel MCV 84.9 fL Normal 81.0-99.0 [facility] Comment on above: Performed By: #### C BCBRICE ####[facility] Ztwnhyrbmm5776 [place] [phone]. Shahbaz Rogel METAMYELOCYTE # Normal [facility] Comment on above: Performed By: #### C CAIN ####[facility] Fjtbapalhy3146 [place] [phone]. Shahbaz Rogel METAMYELOCYTE % Normal [facility] Comment on above: Performed By: #### C CAIN ####[facility] Ynfvbidlaa[address] [place], [place] [address]Dr. Shahbaz Rogel MONOM# 0.31 103/ul Normal 0.30-0.80 [facility] Comment on above: Performed By: #### C CAIN ####[facility] [address]vibkiake[address] [place], [place] [address]Dr. Shahbaz Rgoel MONOM% 11.0 % Normal 1.7-12.0 [facility] Comment on above: Performed By: #### C CAIN ####[facility] Xtmbmhrbui[address] [place], [place] [address]Dr. Shahbaz Rogel MPV 9.5 fL Normal 9.5-13.5 [facility] Comment on above: Performed By: #### C CAIN ####[facility] Lueuomghxp[address] [place], [place] [address]Dr. Shahbaz Rogel MYELOCYTE # Normal [facility] Comment on above: Performed By: #### C CAIN ####[facility] Rbvndrfeht7266 [place] [phone]. Shahbaz Rogel MYELOCYTE % Normal [facility] Comment on above: Performed By: #### C CAIN ####[facility] K[address]owveirq[address] [place], [place] [address]Dr. Shahbaz Rogel NRBC Normal [facility] Comment on above: Performed By: #### C CAIN ####[facility] Jyuwdhkyex[address] [place], [place] [address]Dr. Shahbaz Rogel PLT 197 103/ul Normal 150-[address] [facility] Comment on above: Performed By: #### C HCANELBRICE ####[facility] Jplbftaktm7080 [place], [place] [address]Le. Shahbaz Rogel RBC 5.04 106/ul Normal 4.20-5.40 [facility] Comment on above: Performed By: #### C CAIN ####[facility] Zahpflrnmb0933 [place], [place] [address]Jc. Shahbaz Rogel RDW 13.2 % Normal 11.0-15.0 [facility] Comment on above: Performed By: #### C CAIN ####[facility] Awxozgpicr6685 [place], [place] [address]Nw. Shahbaz Rogel SEG # 1.82 103/ul Normal 1.40-6.50 [facility] Comment on above: Performed By: #### C CAIN ####[facility] Vmiujzemqy7365 [place], [place] [address]Pi. Shahbaz Rogel SEG % 65.0 % Normal 43.0-75.0 [facility] Comment on above: Performed By: #### C CAIN ####[facility] Ybhhvycxxr7140 [place], [place] [address]Fo. Shahbaz Rogel WBC 2.8 103/ul Critically low 4.0-11.0 [facility] Comment on above: Performed By: #### C CAIN ####[facility] Pdotzdqfpy1798 [place], [place] [address]Tj. Shahbaz Rogel Covid-19 PCR ([facility])on SARS-CoV-2 (COVID-19) RNA PAVAN+probe Ql (Unsp spec) Not detected Normal NOT DETECTED [facility] Comment on above: Result Comment: When [...] for this test is supported by the [place] of [employer] and Human Service's declaration that [...] be used). Performed By: #### C VDTBH ####[facility] Vbyrfyphox[address] [place] [address]Dr. Shahbaz Rogel D-DIMERon 01-02-2023 D-DIMER 0.38 mg/L FEU Normal <=0.59 [facility] Comment on above: Performed By: #### D DIM ####[facility] Rjojsakqux045871 [address] [place], [place] [address]DrChen Rogel D-DIMER COMMENTS SEE BELOW Normal [facility] Comment on above: Result Comment: Incr [...] generalized hospitalization. Performed By: #### D DIM ####[facility] [address] [place], [place] [address]Dr. Shahbaz Rogel LACTATE/LACTIC ACIDon 2022 Lactate [Moles/Vol] 2.1 mmol/L Critically high 0.4-2.0 [facility] Comment on above: Performed By: #### L ACT ####[facility] J[address] [place], [place] [address]DrChen Rogel PROF CHEM 8 (BAS METB)on Anion gap [Moles/Vol] 14.3 mmol/L Normal [facility] Comment on above: Performed By: #### C MADM, BMP ####[facility] [address] [place] [id number]. Shahbaz Rogel Calcium [Mass/Vol] 9.0 mg/dL Normal 8.5-10.[address] [facility] Comment on above: Performed By: #### Cheri FALCON, BMP ####[facility] Zvoupl[address]pr[address] [place], [place] [address]Dr. Shahbaz Rogel Chloride [Moles/Vol] 102 mmol/L Normal 98-[address] [facility] Comment on above: Performed By: #### C EZEKIEL, BMP ####[facility] T[address]ws[address]jlp[address] [place], [place] [address]Dr. Shahbaz Rogel CO2 [Moles/Vol] 25.5 mmol/L Normal 21.0-32.[address] [facility] Comment on above: Performed By: #### C EZEKIEL, BMP ####[facility] Zrpf[address]qmuw[address] [place], [place] [address]Dr. Shahbaz Rogel Creatinine [Mass/Vol] 1.01 mg/dL Normal 0.55-1.[address] [facility] Comment on above: Performed By: #### Cheri FALCON, BMP ####[facility] Qddxxwvaqx[address] [place], [place] [address]Dr. Shahbaz Rogel EGFR-AF CITIZEN [place] >60 Normal >=[address] [facility] Comment on above: Performed By: #### C EZEKIEL, BMP ####[facility] [address]urq[address]ctmy[address] [place], [place] [address]Dr. Shahbaz Rogel EGFR-NON AF CITIZEN OF [place] 56 mL/min/1.73m2 Critically low >=[address] [facility] Comment on above: Performed By: #### Cheri FALCON, BMP ####[facility] Hvayhindtz[address] [place], [place] [address]Dr. Shahbaz Rogel Glucose [Mass/Vol] 105 mg/dL Normal 74-[address] [facility] Comment on above: Performed By: #### Cheri FALCON, BMP ####[facility] Moeusiengy[address] [place], [place] [address]Dr. Shahbaz Rogel Potassium [Moles/Vol] 3.8 mmol/L Normal 3.5-5.[address] [facility] Comment on above: Performed By: #### C JOSSYM, BMP ####[facility] Upgjdrhier[address] [place], [place] [address]Dr. Shahbaz Juan F Sodium [Moles/Vol] 138 mmol/L Normal 136-[address] [facility] Comment on above: Performed By: #### C MADM, BMP ####[facility] [address]qwdhwunob[address] [place], [place] [address]Dr. Shahbaz Juan F Urea nitrogen [Mass/Vol] 9.0 mg/dL Normal 7.0-18.[address] [facility] Comment on above: Performed By: #### C EZEKIEL, BMP ####[facility] Adcnopxwcy[address] [place], [place] [address]Dr. Shahbaz Rogel Urea nitrogen/Creatinine [Mass ratio] 8.9 mg/mg Normal [facility] Comment on above: Performed By: #### C EZEKIEL, BMP ####[facility] W[address]ckzwqew[address] [place], [place] [address]Dr. Shahbaz Rogel XR CHEST 1 Von 01-02-2023 XR CHEST 1 V Normal [facility] INSULINon 11-02-2022 Insulin 6.0 uIU/mL Normal 2.6-24.[address] [facility] Comment on above: Performed By: #### I NSULIN ####[facility] Kblyjgpnmo[address] [place], [place] [address]Dr. Shahbaz Rogel CBC AUTO DIFFon 11-01-2022 BASO # 0.0 103/ul Normal 0.0-0.[address] [facility] Comment on above: Performed By: #### C BC ####[facility] Rdiagsxlqh[address] [place], [place] [address]Dr. Shahbaz Rogel Basophils/100 WBC (Bld) 0.5 % Normal 0.2-2.[address] [facility] Comment on above: Performed By: #### C BC ####[facility] Fwbqpcaako[address] [place], [place] [address]Dr. Shahbaz Rogel EO # 0.2 103/ul Normal 0.0-0.[address] [facility] Comment on above: Performed By: #### C BC ####[facility] [address] [place], [place] [id number]. Shahbaz Rogel Eosinophils/100 WBC (Bld) 5.2 % Normal 0.9-7.[address] [facility] Comment on above: Performed By: #### C BC ####[facility] Cwsvrshmbm[address] [place], [place] [address]Dr. Shahbaz Rogel Erythrocyte distribution width (RBC) [Ratio] 12.7 % Normal 11.0-15.[address] [facility] Comment on above: Performed By: #### C BC ####[facility] [address]iapecc[address]ra[address] [place], [place] [address]Dr. Shahbaz Rogel Hematocrit (Bld) [Volume fraction] 46.4 % Normal 36.0-48.[address] [facility] Comment on above: Performed By: #### C BC ####[facility] Lsog[address] [place], [place] [address]Dr. Shahbaz Rogel Hemoglobin (Bld) [Mass/Vol] 14.9 g/dL Normal 12.0-16.[address] [facility] Comment on above: Performed By: #### C BC ####[facility] Ravdcqwkwj[address] [place], [place] [address]Dr. Shahbaz Rogel IG # 0.00 10e3/ul Normal 0.00-0.[address] [facility] Comment on above: Performed By: #### C BC ####[facility] X[address]wnzzd[address] [place], [place] [address]Dr. Shahbaz Rogel IG % 0.0 % Normal 0.0-0.[address] [facility] Comment on above: Performed By: #### C BC ####[facility] Wnexqgiryr[address] [place], [place] [address]Dr. Shahbaz Rogel LYMPH # 1.1 103/ul Critically low 1.2-3.[address] [facility] Comment on above: Performed By: #### C BC ####[facility] Wkepvtpuna[address] [place], [place] [address]Dr. Shahbaz Rogel Lymphocytes/100 WBC (Bld) 25.5 % Normal 20.5-60.[address] [facility] Comment on above: Performed By: #### C BC ####[facility] [address]zpkidpos[address] [place] [address]Dr. Shahbaz Juan F MANUAL DIFF REQ NO Normal [facility] Comment on above: Performed By: #### C BC ####[facility] Hsmusntoku[address] [place] [address]Dr. Shahbaz Juan F MCH (RBC) [Entitic mass] 27.8 pg Normal 26.7-34.[address] [facility] Comment on above: Performed By: #### C BC ####[facility] Ddpgqliiic[address] [place] [address]Dr. Shahbaz Juan F MCHC (RBC) [Mass/Vol] 32.1 g/dL Normal 29.9-35.[address] [facility] Comment on above: Performed By: #### C BC ####[facility] [address]iclh[address] [place] [address]Dr. Lilajarrod Rogel MCV (RBC) [Entitic vol] 86.6 fL Normal 81.0-99.[address] [facility] Comment on above: Performed By: #### C BC ####[facility] Djqgybhlgo[address] [place], [place] [address]Dr. Lilajarrod Rogel MONO # 0.2 103/ul Critically low 0.3-0.[address] [facility] Comment on above: Performed By: #### C BC ####[facility] Du[address]jh[address] [place], [place] [address]Dr. Shahbaz Rogel Monocytes/100 WBC (Bld) 5.4 % Normal 1.7-12.[address] [facility] Comment on above: Performed By: #### C BC ####[facility] [address]fr[address] [place] [address]Dr. Shahbaz Rogel NEUT # 2.7 103/ul Normal 1.4-6.[address] [facility] Comment on above: Performed By: #### C BC ####[facility] Bgnsckgihy[address] [place], [place] [address]Dr. Shahbaz Rogel Neutrophils/100 WBC (Bld) 63.4 % Normal 43.0-75.[address] [facility] Comment on above: Performed By: #### C BC ####[facility] [address]fsbq[address] [place] [address]Dr. Shahbaz Rogel Platelet mean volume (Bld) [Entitic vol] 9.4 fL Critically low 9.5-13.[address] [facility] Comment on above: Performed By: #### C BC ####[facility] [address] [place] [address]Dr. Shahbaz Rogel PLT 216 103/ul Normal 150-[address] [facility] Comment on above: Performed By: #### C BC ####[facility] [address]poruzma[address] [place] [address]Dr. Shahbaz Rogel RBC 5.36 106/ul Normal 4.20-5.[address] [facility] Comment on above: Performed By: #### C BC ####[facility] [address]ys[address]axcdzb[address] [place], [place] [address]Dr. Shahbaz Rogel WBC 4.2 103/ul Normal 4.0-11.[address] [facility] Comment on above: Performed By: #### C BC ####[facility] [address] [place] [address]Dr. Shahbaz Rogel FREE THYROXINE INDEX T7on FTI 2.92 Normal 1.30-4.[address] [facility] Comment on above: Performed By: #### C MP, LIPID, T7, TSH ####[facility] Rrf[address]ywcri[address] [place] [address]Dr. Shahbaz Rogel T3U 37.0 % Normal 30.0-39.[address] [facility] Comment on above: Performed By: #### C MP, LIPID, T7, TSH ####[facility] [address]krqwtw[address] [place] [address]Dr. Shahbaz Rogel T4 [Mass/Vol] 7.90 ug/dL Normal 4.80-13.[address] [facility] Comment on above: Performed By: #### C MP, LIPID, T7, TSH ####[facility] [address] [place] [address]Dr. Shahbaz Rogel GLYCOHEMOGLOBIN A1Con 2022 ADA RECOMMENDATION SEE BELOW Normal [facility] Comment on above: Result Comment: ADA RECOMMENDED LIMIT 4.0 - 6.0 ADA THERAPEUTIC TARGET < 7.0 ACTION SUGGESTED > 7.0 Performed By: #### A 1C ####[facility] Limltihxck[address] [place] [address]Dr. Shahbaz Rogel Glucose [Mass/Vol] 120 mg/dL Normal [facility] Comment on above: Performed By: #### A 1C ####[facility] Wrnezitytd[address] [place], [place] [address]Dr. Shahbaz Rogel HbA1c (Bld) [Mass fraction] 5.8 % Normal 4.5-6.[address] [facility] Comment on above: Performed By: #### A 1C ####[facility] Xfuijofxmw[address] [place], [place] [address]Dr. Shahbaz Rogel IRONon 11-01-2022 Iron [Mass/Vol] 54.0 ug/dL Normal 50.0-170.0 [facility] Comment on above: Performed By: #### I GRIS ####[facility] Ctbrzclmkw[address] [place], [place] [address]Dr. Shahbaz Rogel LIPID PROFILEon 11-01-2022 CHOL-HDL RATIO NORM SEE BELOW Normal [facility] Comment on above: Result Comment: 3.3 - 4.4 LOW RISK 4.4 - 7.1 AVERAGE RISK 7.1 - 11.0 MODERATE RISK >11.0 HIGH RISK Performed By: #### C MP, LIPID, T7, TSH ####[facility] Wut[address]xyw[address] [place], [place] [address]Dr. Shahbaz Rogel Cholesterol [Mass/Vol] 203 mg/dL Critically high <=[address] [facility] Comment on above: Performed By: #### C MP, LIPID, T7, TSH ####[facility] Qvgiasvcaz[address] [place], [place] [id number]. Shahbaz Rogel Cholesterol in HDL [Mass/Vol] 42 mg/dL Normal 40-[address] [facility] Comment on above: Performed By: #### C MP, LIPID, T7, TSH ####[facility] [address]old[address]qei[address] [place] [address]Dr. Shahbaz Rogel Cholesterol in LDL [Mass/Vol] 121.4 mg/dL Normal [facility] Comment on above: Performed By: #### C MP, LIPID, T7, TSH ####[facility] [address]ub[address] [place] [phone]. Sahhbaz Rogel Cholesterol.total/Chol esterol in HDL [Mass ratio] 4.8 {ratio} Normal [facility] Comment on above: Performed By: #### C MP, LIPID, T7, TSH ####[facility] Trploiwyoi[address] [place] [phone]. Shahbaz Rogel HDL NORMAL > or = 60 mg/dl - LO W CARDIOVASCULAR RISK <40 mg/dl - HIGH CARDIOVASCULAR RISK Normal [facility] Comment on above: Performed By: #### C MP, LIPID, T7, TSH ####[facility] Qydiexbgtf[address] [place] [address]Dr. Shahbaz Rogel LDL CALC NORMAL SEE BELOW Normal [facility] Comment on above: Result Comment: <100 mg/dl OPTIMAL 100 - 129 mg/dl NEAR OR ABOVE OPTIMAL 130 - 159 mg/dl BORDERLINE HIGH 160 - 189 mg/dl HIGH >190 mg/dl VERY HIGH Performed By: #### C MP, LIPID, T7, TSH ####[facility] Bxceiesogq[address] [place] [phone]. Shahbaz Rogel Triglyceride [Mass/Vol] 198 mg/dL Critically high <=[address] [facility] Comment on above: Performed By: #### C MP, LIPID, T7, TSH ####[facility] F[address]bjgkext[address] [place] [phone]. Shahbaz Rogel VLDL CALC 39.6 mg/dL Normal [facility] Comment on above: Performed By: #### C MP, LIPID, T7, TSH ####[facility] Ivfjcggurz[address] [place] [phone]. Shahbaz Rogel PROF 14(COMP METB)on 023 Albumin [Mass/Vol] 4.1 g/dL Normal 3.4-5.0 [facility] Comment on above: Performed By: #### C MP, LIPID, T7, TSH ####[facility] Hepvkjcdgi[address] [place] [phone]. Shahbaz Rogel Albumin/Globulin [Mass ratio] 1.0 {ratio} Normal [facility] Comment on above: Performed By: #### C MP, LIPID, T7, TSH ####[facility] Ysxqliuiak[address] [place] [address]Dr. Shahbaz Rogel ALP [Catalytic activity/Vol] 126 U/L Critically high 46-116 [facility] Comment on above: Performed By: #### C MP, LIPID, T7, TSH ####[facility] [address]waqjlyxc[address] [place] [address]Dr. Shahbaz Rogel ALT [Catalytic activity/Vol] 30 U/L Normal 14-59 [facility] Comment on above: Performed By: #### C MP, LIPID, T7, TSH ####[facility] Xjcqhtpskv40[address] [place] [address]Dr. Shahbaz Rogel Anion gap [Moles/Vol] 12.3 mmol/L Normal [facility] Comment on above: Performed By: #### C MP, LIPID, T7, TSH ####[facility] S[address]dphygrr[address] [place], [place] [address]Dr. Shahbaz Rogel AST [Catalytic activity/Vol] 25 U/L Normal 15-[address] [facility] Comment on above: Performed By: #### C MP, LIPID, T7, TSH ####[facility] Xkpizrwsrs4[address] [place] [address]Dr. Shahbaz Rogel Bilirubin [Mass/Vol] 0.5 mg/dL Normal 0.2-1.0 [facility] Comment on above: Performed By: #### C MP, LIPID, T7, TSH ####[facility] Mllgqoygnz[address] [place] [address]Dr. Shahbaz Rogel Calcium [Mass/Vol] 9.4 mg/dL Normal 8.5-10.1 [facility] Comment on above: Performed By: #### C MP, LIPID, T7, TSH ####[facility] Ibvncfcavl[address] [place] [address]Dr. Shahbaz Rogel Chloride [Moles/Vol] 104 mmol/L Normal 98-[address] [facility] Comment on above: Performed By: #### C MP, LIPID, T7, TSH ####[facility] R[address]axtjxyz[address] [place] [phone]. Shahbaz Rogel CO2 [Moles/Vol] 29.6 mmol/L Normal 21.0-32.[address] [facility] Comment on above: Performed By: #### C MP, LIPID, T7, TSH ####[facility] Hqnmdxsnmi76[address] [place] [phone]. Shahbaz Rogel Creatinine [Mass/Vol] 0.91 mg/dL Normal 0.55-1.[address] [facility] Comment on above: Performed By: #### C MP, LIPID, T7, TSH ####[facility] S[address]qqhmumr[address] [place] [phone]. Shahbaz Rogel EGFR-AF CITIZ[place] >60 Normal >=[address] [facility] Comment on above: Performed By: #### C MP, LIPID, T7, TSH ####[facility] Klwcabgeii[address] [place] [address]Dr. Shahbaz Juan F EGFR-NON AF CITIZEN OF [place] >60 Normal >=[address] [facility] Comment on above: Performed By: #### C MP, LIPID, T7, TSH ####[facility] Bwsvxgkjfq5[address] [place] [phone]. Shahbaz Rogel Globulin (S) [Mass/Vol] 4.0 g/dL Normal [facility] Comment on above: Performed By: #### C MP, LIPID, T7, TSH ####[facility] Dyxxawzojn[address] [place] [phone]. Shahbaz Rogel Glucose [Mass/Vol] 85 mg/dL Normal 74-[address] [facility] Comment on above: Performed By: #### C MP, LIPID, T7, TSH ####[facility] Fyrimykyjq[address] [place] [phone]. Shahbaz Rogel Potassium [Moles/Vol] 3.9 mmol/L Normal 3.5-5.[address] [facility] Comment on above: Performed By: #### C MP, LIPID, T7, TSH ####[facility] Qhowywkykk6554 [place] [phone]. Lilajarrod Rogel Protein [Mass/Vol] 8.1 g/dL Normal 6.4-8.[address] [facility] Comment on above: Performed By: #### C MP, LIPID, T7, TSH ####[facility] Ihoogewers[address] [place] [address]Dr. Shahbaz Rogel Sodium [Moles/Vol] 142 mmol/L Normal 136-[address] [facility] Comment on above: Performed By: #### C MP, LIPID, T7, TSH ####[facility] [address]rsyvxpyy[address] [place] [address]Dr. Shahbaz Rogel Urea nitrogen [Mass/Vol] 9.0 mg/dL Normal 7.0-18.0 [facility] Comment on above: Performed By: #### C MP, LIPID, T7, TSH ####[facility] [address] [place], [place] [address]Dr. Shahbaz Rogel Urea nitrogen/Creatinine [Mass ratio] 9.9 mg/mg Normal [facility] Comment on above: Performed By: #### C MP, LIPID, T7, TSH ####[facility] [address]rxvl[address] [place], [place] [address]Dr. Shahbaz Rogel TSHon 11-01-2022 TSH 0.045 uIU/mL Critically low 0.358-3.[address] [facility] Comment on above: Performed By: #### C MP, LIPID, T7, TSH ####[facility] [address]fd[address]ouigx[address] [place] [address]Dr. Shahbaz Rogel XR HUMERUS LT MIN 2Von 10-01 XR HUMERUS LT MIN 2V Normal [facility] XR LSPINE 2_3 VIEWSon 2021 XR LSPINE 2_3 VIEWS Normal [facility] XR CHEST 1 Von 08-25-2022 XR CHEST 1 V Normal [facility] ACID FAST SMEAR AND CXon Acid Fast Culture Negative Normal [facility] Comment on above: Result Comment: No a ninfa fast bacilli isolated after 6 weeks. Performed By: #### A FB ####[facility] Qbpvosnwuq[address] [place] [address]Dr. Shahbaz Rogel Acid Fast Smear Negative Normal [facility] Comment on above: Performed By: #### A FB ####[facility] [address] [place], [place] [address]Du. Shahbaz Rogel [employer] Specimen Processing Concentration Normal [facility] Comment on above: Performed By: #### A FB ####[facility] [address]tusmyhw[address] [place], [place] [address]Ih. Shahbaz Rogel Bacteria identified Anaer cx Nom (Unsp spec)Ordered By: Rodolfo Harley on 08-13-2022 Anaerobic microbial culture No Anaerobes Isolated 3 Days [facility] Basophils Auto (Bld) [#/Vol] Ordered By: Rodolfo Harley on 08-12-2022 Basophils (Bld) [#/Vol] 0.0 10*3/uL 0.0-0.2 [facility] Basophils/100 WBC Auto (Bld) Ordered By: Rodolfo Harley on 08-12-2022 Basophils/100 WBC (Bld) 0.4 % . [facility] Creatinine and Glomerular fi ltration rate.predicted panel (S/P/Bld)Ordered By: Rodolfo Harley on 08-12-2022 Creatinine [Mass/Vol] 0.74 mg/dL 0.44-1.03 [facility] Eosinophils Auto (Bld) [#/Vo l]Ordered By: Rodolfo Harley on 08-12-2022 Eosinophils (Bld) [#/Vol] 0.0 10*3/uL 0.0-0.45 [facility] Eosinophils/100 WBC Auto (Bl d)Ordered By: Rodolfo Harley on 08-12-2022 Eosinophils/100 WBC (Bld) 0.0 % . [facility] Erythrocyte distribution wid th Auto (RBC) [Ratio]Ordered By: Rodolfo Harley on 08-12-2022 Erythrocyte distribution width (RBC) [Ratio] 14.2 % 11.9-15.3 [facility] Estimated glomerular filtrat ion rate (GFR) non- AmericanOrdered By: Rodolfo Harley on 08-12-2022 GFR/1.73 sq M.predicted among non-blacks MDRD (S/P/Bld) [Vol rate/Area] > 60 mL/Min [facility] Hematocrit Auto (Bld) [Volum e fraction]Ordered By: Rodolfo Harley on 08-12-2022 Hematocrit (Bld) [Volume fraction] 38.0 % 34.0-46.4 [facility] Hemoglobin [Mass/volume] in BloodOrdered By: Rodolfo Harley on 08-12-2022 Hemoglobin (Bld) [Mass/Vol] 12.5 g/dL 11.8-15.4 [facility] Laboratory - Hematology and Cell countsOrdered By: Rodolfo Harley on 08-12-2022 Nucleated RBC/100 WBC (Bld) [Ratio] 0.1 % 0-0.5 [facility] Leukocytes [#/volume] in Blo od by Automated countOrdered By: Rodolfo Harley on 08-12-2022 WBC (Bld) [#/Vol] 5.8 10*3/uL 4.5-11.0 [facility] Lymphocytes Auto (Bld) [#/Vo l]Ordered By: Rodolfo Harley on 08-12-2022 Lymphocytes (Bld) [#/Vol] 0.7 10*3/uL 1.00-4.8 [facility] Lymphocytes/100 WBC Auto (Bl d)Ordered By: Rodolfo Harley on 08-12-2022 Lymphocytes/100 WBC (Bld) 11.4 % . [facility] MCH Auto (RBC) [Entitic mass ]Ordered By: Rodolfo Harley on 08-12-2022 MCH (RBC) [Entitic mass] 28.1 pg 24.7-34.3 [facility] MCHC Auto (RBC) [Mass/Vol]Or dered By: Rodolfo Harley on 08-12-2022 MCHC (RBC) [Mass/Vol] 32.9 g/dL 32.0-35.0 [facility] MCV Auto (RBC) [Entitic vol] Ordered By: Rodolfo Harley on 08-12-2022 MCV (RBC) [Entitic vol] 85.4 fL 80-100 [facility] Monocytes Auto (Bld) [#/Vol] Ordered By: Rodolfo Harley on 08-12-2022 Monocytes (Bld) [#/Vol] 0.3 10*3/uL 0.0-0.8 [facility] Monocytes/100 WBC Auto (Bld) Ordered By: Rodolfo Harley on 08-12-2022 Monocytes/100 WBC (Bld) 4.8 % . [facility] Neutrophils Auto (Bld) [#/Vo l]Ordered By: Rodolfo Harley on 08-12-2022 Neutrophils (Bld) [#/Vol] 4.8 10*3/uL 1.8-7.7 [facility] Neutrophils/100 WBC Auto (Bl d)Ordered By: Rodolfo Harley on 08-12-2022 Neutrophils/100 WBC (Bld) 83.4 % . [facility] No Panel InformationOrdered By: Rodolfo Harley on 08-12-2022 Estimated GFR () > 60 mL/Min [facility] Comment on above: GFR estimated refere nce range: According to KDOQI guidelines, <60 ml/min/1.73m2 is sufficient to diagnose a patient with chronic kidney disease. Pharmacy Creatinine Clearance (Chem 59.45 [facility] Platelet mean volume Auto (B ld) [Entitic vol]Ordered By: Rodolfo Harley on 08-12-2022 Platelet mean volume (Bld) [Entitic vol] 7.9 fL 6.3-10.7 [facility] Platelets Auto (Bld) [#/Vol] Ordered By: Rodolfo Harley on 08-12-2022 Platelets (Bld) [#/Vol] 196 10*3/uL 150-450 [facility] RBC Auto (Bld) [#/Vol]Ordere d By: Rodolfo Harley on 08-12-2022 RBC (Bld) [#/Vol] 4.45 10*6/uL 3.60-5.00 [facility] Serum or plasma anion gap de terminationOrdered By: Rodolfo Harley on 08-12-2022 Anion gap [Moles/Vol] 7.5 mmol/L 6.0-15.0 [facility] Serum or plasma calcium dagoberto urement (mass/volume)Ordered By: Rodolfo Harley on 08-12-2022 Calcium [Mass/Vol] 8.7 mg/dL 8.2-10.2 [facility] Serum or plasma chloride anahy surement (moles/volume)Ordered By: Rodolfo Harley on 08-12-2022 Chloride [Moles/Vol] 108 mmol/L 95-114 [facility] Serum or plasma glucose dagoberto urement (mass/volume)Ordered By: Rodolfo Harley on 08-12-2022 Glucose [Mass/Vol] 133 mg/dL 70-100 [facility] Comment on above: ADA recommended refe rence rangeRandom Glucose Reference Range is dependent on time and content of last meal. Glucose of more than 200 mg/dL in a nonstressed, ambulatory subject supports the diagnosis of Diabetes Mellitus. Serum or plasma potassium me asurement (moles/volume)Ordered By: Rodolfo Harley on 08-12-2022 Potassium [Moles/Vol] 3.7 mmol/L 3.5-5.1 [facility] Serum or plasma sodium measu rement (moles/volume)Ordered By: Rodolfo Harley on 08-12-2022 Sodium [Moles/Vol] 139 mmol/L 136-146 [facility] Serum or plasma total carbon dioxide measurement (moles/volume)Ordered By: Rodolfo Harley on 08-12-2022 CO2 [Moles/Vol] 27.2 mmol/L 22.0-30.[address] [facility] Serum or plasma urea nitroge n measurement (mass/volume)Ordered By: Rodolfo Harley on 08-12-2022 Urea nitrogen [Mass/Vol] 14 mg/dL 9-23 [facility] ABO and Rh group post transf usion reaction Nom (Bld)Ordered By: Rodolfo Harley on 08-10-2022 Microscopic observation Gram stain Nom (Unsp spec) [facility] AFB cultureOrdered By: Sissy Harley on 08-10-2022 Mycobacterium sp identified Org specific cx Nom (Unsp spec) [facility] [employer] smearOrdered By: Rodolfo Harley on 08-10-2022 Microscopic observation Smear Nom (Unsp spec) [facility] Aerobic cultureOrdered By: Margie Harley on 08-10-2022 Bacteria identified Aer cx Nom (Unsp spec) No Growth [address] [facility] Anaerobic cultureOrdered By: Rodolfo Harley on 08-10-2022 Bacteria identified Anaer cx Nom (Unsp spec) No Anaerobes Isolated 3 Days [facility] Arterial blood standard base excess determination by calculationOrdered By: Rodolfo Harley on 08-10-2022 Base excess standard Calc (BldA) [Moles/Vol] 5 mmol/L -2-3 [facility] Blood carbon dioxide, total measurement by calculation (moles/volume)Ordered By: Rodolfo Harley on 08-10-2022 CO2 Calc (Bld) [Moles/Vol] 30 mmol/L 23-29 [facility] [address] biopsyOrdered By: Rodolfo Harley on 08-10-2022 Hematocrit (Bld) [Volume fraction] 40.0 % 38.0-51.0 [facility] Fungal cultureOrdered By: Rolanda Harley on 08-10-2022 Fungus identified Cx Nom (Unsp spec) [facility] Glucose Glucometer (BldC) [M ass/Vol]Ordered By: Rodolfo Harley on 08-10-2022 Glucose [Mass/Vol] 126 mg/dL 70-105 [facility] Gram stain for investigation of transfusion reactionOrdered By: Rodolfo Harley on 08-10-2022 Microscopic observation Gram stain Nom (Unsp spec) [facility] Hemoglobin Calc (Bld) [Mass/ Vol]Ordered By: Rodolfo Harley on 08-10-2022 Hemoglobin (Bld) [Mass/Vol] 13.6 g/dL 12.0-17.0 [facility] Monocyte %Ordered By: Jean Harley on 08-10-2022 Monocyte % 39.9 mm[Hg] 35-51 [facility] Monocyte % 45 mm[Hg] 80-105 [facility] No Panel InformationOrdered By: Rodolfo Harley on 08-10-2022 Chlamydia psittaci Antibodies <1:10 Neg:<1:10 [facility] Comment on above: This test was develo ped and its performance characteristicsdetermined by [employer]. It has not been cleared or approvedby the Food and Drug Administration. The FDA hasdetermined that such clearance or approval is notnecessary.Performed at: [address] [id number] Director: Shelly Vargas MD, Phone: [phone] Potassium (Bld) [Moles/Vol]O rdered By: Rodolfo Harley on 08-10-2022 Potassium [Moles/Vol] 3.8 mmol/L 3.5-4.9 [facility] Sodium (Bld) [Moles/Vol]Orde red By: Rodolfo Harley on 08-10-2022 Sodium [Moles/Vol] 141 mmol/L 138-146 [facility] Whole blood bicarbonate dagoberto urementOrdered By: Rodolfo Harley on 08-10-2022 HCO3 (Bld) [Moles/Vol] 29.1 mmol/L 22.0-28.0 [facility] Whole blood ionized calcium measurement (moles/volume)Ordered By: Rodolfo Harley on 08-10-2022 Calcium.ionized (Bld) [Moles/Vol] 1280 mmol/L 1.12-1.32 [facility] Whole blood oxygen saturatio n measurementOrdered By: Rodolfo Harley on 08-10-2022 Oxygen saturation in Blood 84 % 95-98 [facility] Comment on above: Reference ranges ref lect baseline specimens only Whole blood pHOrdered By: Rolanda Harley on 08-10-2022 pH (Bld) 7.470 Units 7.31-7.45 [facility] Urine culture routineOrdered By: Rodolfo Harley on 08-07-2022 Bacteria identified Cx Nom (U) 2 Days [facility] Activated partial thrombopla stin time (aPTT) in platelet poor plasma by coagulation aOrdered By: Rodolfo Harley on 08-05-2022 aPTT Coag (PPP) [Time] 35.9 s 25.1-36.5 [facility] Basophils Auto (Bld) [#/Vol] Ordered By: Rodolfo Harley on 08-05-2022 Basophils (Bld) [#/Vol] 0.0 10*3/uL 0.0-0.2 [facility] Basophils/100 WBC Auto (Bld) Ordered By: Rodolfo Harley on 08-05-2022 Basophils/100 WBC (Bld) 0.5 % . [facility] Body fluid albumin measureme nt (mass/volume)Ordered By: Rodolfo Harley on 08-05-2022 Albumin (Body fld) [Mass/Vol] 3.8 g/dL 3.2-5.5 [facility] COVID-19 Positive/NegativeOr dered By: Rodolfo Harley on 08-05-2022 SARS-CoV-2 (COVID-19) N gene PAVAN+probe Ql (Resp) Negative Negative [facility] Comment on above: Testing for SARS-CoV -2 by RT-PCRThis test was developed and its performance characteristics determined by [employer] and validated at the [facility]. This test has not been FDA cleared [...] on 08-05-2022 Creatinine [Mass/Vol] 0.97 mg/dL 0.44-1.03 [facility] Eosinophils Auto (Bld) [#/Vo l]Ordered By: Rodolfo Harley on 08-05-2022 Eosinophils (Bld) [#/Vol] 0.2 10*3/uL 0.0-0.45 [facility] Eosinophils/100 WBC Auto (Bl d)Ordered By: Rodolfo Harley on 08-05-2022 Eosinophils/100 WBC (Bld) 4.9 % . [facility] Erythrocyte distribution wid th Auto (RBC) [Ratio]Ordered By: Rodolfo Harley on 08-05-2022 Erythrocyte distribution width (RBC) [Ratio] 14.5 % 11.9-15.3 [facility] Estimated glomerular filtrat ion rate (GFR) non- AmericanOrdered By: Rodolfo Harley on 08-05-2022 GFR/1.73 sq M.predicted among non-blacks MDRD (S/P/Bld) [Vol rate/Area] 59 mL/Min [facility] FUNGAL CULTUREon 08-05-2022 Fungus (Mycology) Culture Final report Abnormal [facility] Comment on above: Performed By: #### C XFUN ####[facility] [address] [place] [address]Dr. Shahbaz Rogel Fungus Stain Final report Normal [facility] Comment on above: Performed By: #### C XFUN ####[facility] [address] [place] [address]Dr. Shahbaz Rogel Result 1 Comment Abnormal [facility] Comment on above: Result Comment: MILADYS/ Calcofluor preparation: no fungus observed. Performed By: #### C XFUN ####[facility] [address] [place] [address]Dr. Shahbaz Rogel Result Comment: Aspe rgillus versicolor Result 2 Penicillium species Abnormal [facility] Comment on above: Performed By: #### C XFUN ####[facility] [address] [place] [address]Dr. Shahbaz Rogel Globulin Calc (S) [Mass/Vol] Ordered By: Rodolfo Harley on 08-05-2022 Globulin (S) [Mass/Vol] 2.9 g/dL [facility] Hematocrit Auto (Bld) [Volum e fraction]Ordered By: Rodolfo Harley on 08-05-2022 Hematocrit (Bld) [Volume fraction] 43.3 % 34.0-46.4 [facility] Hemoglobin [Mass/volume] in BloodOrdered By: Rodolfo Harley on 08-05-2022 Hemoglobin (Bld) [Mass/Vol] 14.3 g/dL 11.8-15.4 [facility] Laboratory - CoagulationOrde red By: Rodolfo Harley on 08-05-2022 PT Coag (PPP) [Time] 12.4 s 9.0-12.9 [facility] Laboratory - Hematology and Cell countsOrdered By: Rodolfo Harley on 08-05-2022 Nucleated RBC/100 WBC (Bld) [Ratio] 0.0 % 0-0.5 [facility] Leukocytes [#/volume] in Blo od by Automated countOrdered By: Rodolfo Harley on 08-05-2022 WBC (Bld) [#/Vol] 3.4 10*3/uL 4.5-11.0 [facility] Lymphocytes Auto (Bld) [#/Vo l]Ordered By: Rodolfo Harley on 08-05-2022 Lymphocytes (Bld) [#/Vol] 0.9 10*3/uL 1.00-4.8 [facility] Lymphocytes/100 WBC Auto (Bl d)Ordered By: Rodolfo Harley on 08-05-2022 Lymphocytes/100 WBC (Bld) 27.2 % . [facility] MCH Auto (RBC) [Entitic mass ]Ordered By: Rodolfo Harley on 08-05-2022 MCH (RBC) [Entitic mass] 28.4 pg 24.7-34.3 [facility] MCHC Auto (RBC) [Mass/Vol]Or dered By: Rodolfo Harley on 08-05-2022 MCHC (RBC) [Mass/Vol] 33.1 g/dL 32.0-35.0 [facility] MCV Auto (RBC) [Entitic vol] Ordered By: Rodolfo Harley on 08-05-2022 MCV (RBC) [Entitic vol] 85.9 fL 80-100 [facility] Monocytes Auto (Bld) [#/Vol] Ordered By: Rodolfo Harley on 08-05-2022 Monocytes (Bld) [#/Vol] 0.3 10*3/uL 0.0-0.8 [facility] Monocytes/100 WBC Auto (Bld) Ordered By: Rodolfo Harley on 08-05-2022 Monocytes/100 WBC (Bld) 7.5 % . [facility] Neutrophils Auto (Bld) [#/Vo l]Ordered By: Rodolfo Harley on 08-05-2022 Neutrophils (Bld) [#/Vol] 2.0 10*3/uL 1.8-7.7 [facility] Neutrophils/100 WBC Auto (Bl d)Ordered By: Rodolfo Harley on 08-05-2022 Neutrophils/100 WBC (Bld) 59.9 % . [facility] No Panel InformationOrdered By: Rodolfo Harley on 08-05-2022 Estimated GFR () > 60 mL/Min [facility] Comment on above: GFR estimated refere nce range: According to KDOQI guidelines, <60 ml/min/1.73m2 is sufficient to diagnose a patient with chronic kidney disease. Pharmacy Creatinine Clearance (Chem N/A [facility] Platelet mean volume Auto (B ld) [Entitic vol]Ordered By: Rodolfo Harley on 08-05-2022 Platelet mean volume (Bld) [Entitic vol] 8.1 fL 6.3-10.7 [facility] Platelet poor plasma interna tional normalized ratio (INR) by coagulation assay (relatOrdered By: Rodolfo Harley on 08-05-2022 INR Coag (PPP) [Relative time] 1.1 {INR} [facility] Comment on above: INR Therapeutic Rang e [...] 08-05-2022 Platelets (Bld) [#/Vol] 243 10*3/uL 150-450 [facility] Protein [Mass/volume] in Ser um or PlasmaOrdered By: Rodolfo Harley on 08-05-2022 Protein [Mass/Vol] 6.7 g/dL 6.1-7.9 [facility] RBC Auto (Bld) [#/Vol]Ordere d By: Rodolfo Harley on 08-05-2022 RBC (Bld) [#/Vol] 5.04 10*6/uL 3.60-5.00 [facility] Serum or plasma alanine snyder otransferase measurement without P-5'-P (enzymatic activiOrdered By: Rodolfo Harley on 08-05-2022 ALT No additional P-5'-P [Catalytic activity/Vol] 14 U/L 10-60 [facility] Serum or plasma albumin/glob ulin mass ratioOrdered By: Rodolfo Harley on 08-05-2022 Albumin/Globulin [Mass ratio] 1.3 {ratio} [facility] Serum or plasma alkaline sruthi sphatase measurement (enzymatic activity/volume)Ordered By: Rodolfo Harley on 08-05-2022 ALP [Catalytic activity/Vol] 91 U/L 32-92 [facility] Serum or plasma anion gap de terminationOrdered By: Rodolfo Harley on 08-05-2022 Anion gap [Moles/Vol] 14.3 mmol/L 6.0-15.0 [facility] Serum or plasma aspartate am inotransferase measurement (enzymatic activity/volume)Ordered By: Rodolfo Harley on 08-05-2022 AST [Catalytic activity/Vol] 21 U/L 10-42 [facility] Serum or plasma calcium dagoberto urement (mass/volume)Ordered By: Rodolfo Harley on 08-05-2022 Calcium [Mass/Vol] 9.5 mg/dL 8.2-10.2 [facility] Serum or plasma chloride anahy surement (moles/volume)Ordered By: Rodolfo Harley on 08-05-2022 Chloride [Moles/Vol] 102 mmol/L 95-114 [facility] Serum or plasma glucose dagoberto urement (mass/volume)Ordered By: Rodolfo Harley on 08-05-2022 Glucose [Mass/Vol] 76 mg/dL 70-100 [facility] Comment on above: ADA recommended refe rence rangeRandom Glucose Reference Range is dependent on time and content of last meal. Glucose of more than 200 mg/dL in a nonstressed, ambulatory subject supports the diagnosis of Diabetes Mellitus. Serum or plasma potassium me asurement (moles/volume)Ordered By: Rodolfo Harley on 08-05-2022 Potassium [Moles/Vol] 3.8 mmol/L 3.5-5.1 [facility] Serum or plasma sodium measu rement (moles/volume)Ordered By: Rodolfo Harley on 08-05-2022 Sodium [Moles/Vol] 138 mmol/L 136-146 [facility] Serum or plasma total biliru bin measurement (mass/volume)Ordered By: Rodolfo Harley on 08-05-2022 Bilirubin [Mass/Vol] 0.7 mg/dL 0.3-1.2 [facility] Serum or plasma total carbon dioxide measurement (moles/volume)Ordered By: Rodolfo Harley on 08-05-2022 CO2 [Moles/Vol] 25.5 mmol/L 22.0-30.[address] [facility] Serum or plasma urea nitroge n measurement (mass/volume)Ordered By: Rodolfo Harley on 08-05-2022 Urea nitrogen [Mass/Vol] 12 mg/dL - [facility] Urine culture routineOrdered By: Rodolfo Harley on 08-05-2022 Bacteria identified Cx Nom (U) 2 Days [facility] XR ANKLE LT MIN 3 Von 2021 XR ANKLE LT MIN 3 V Normal [facility] BNPon 07-06-2022 Natriuretic peptide B (Bld) [Mass/Vol] 843.0 pg/mL Normal <=900.[address] [facility] Comment on above: Performed By: #### B [employer], CRP, CMP ####[facility] [address] [place] [address]Dr. Shahbaz Rogel CBC W MANUAL DIFFon 07-06-20 22 ATYPICAL LYMPH # Normal [facility] Comment on above: Performed By: #### C CAIN ####[facility] [address] [place] [id number]. Shahbaz Rogel ATYPICAL LYMPH % Normal [facility] Comment on above: Performed By: #### C BCBRICE ####[facility] [address] [place] [address]Dr. Shahbaz Rogel BAND # 0.0 103/ul Normal 0.0-0.[address] [facility] Comment on above: Performed By: #### C CAIN ####[facility] [address] [place] [address]Dr. Shahbaz Rogel BAND % 0 % Normal 0-[address] [facility] Comment on above: Performed By: #### C BCMAN ####[facility] [address] [place] [address]Dr. Shahbaz Rogel BASOM # 0.00 103/ul Normal 0.00-0.[address] [facility] Comment on above: Performed By: #### C BCMAN ####[facility] [address] [place] [address]Dr. Shahbaz Rogel BASOM % 0.0 % Critically low 0.2-2.[address] [facility] Comment on above: Performed By: #### C BCMAN ####[facility] [address] [place] [address]Dr. Shahbaz Rogel BLAST # Normal [facility] Comment on above: Performed By: #### C BCBRICE ####[facility] [address] [place], [place] [address]Dr. Shahbaz Rogel BLAST % Normal [facility] Comment on above: Performed By: #### C BCBRICE ####[facility] [address] [place], [place] [address]Dr. Shahbaz Rogel CORRECTED WBC Normal 4.0-11.[address] [facility] Comment on above: Performed By: #### C BCMAN ####[facility] [address] [place], [place] [address]Dr. Shahbaz Rogel EOS # 0.00 103/ul Normal 0.00-0.[address] [facility] Comment on above: Performed By: #### C BCBRICE ####[facility] [address] [place] [address]Dr. Shahbaz Rogel EOS% 0.0 % Critically low 0.9-7.[address] [facility] Comment on above: Performed By: #### C BCMAN ####[facility] [address] [place], [place] [address]Dr. Shahbaz Rogel HCT 40.3 % Normal 36.0-48.[address] [facility] Comment on above: Performed By: #### C BCBRICE ####[facility] [address] [place], [place] [address]Dr. Shahbaz Rogel HGB 12.7 g/dl Normal 12.0-16.0 [facility] Comment on above: Performed By: #### C CAIN ####[facility] [address] [place] [address]Dr. Shahbaz Rogel LYMPHM # 0.41 103/ul Critically low 1.20-3.[address] [facility] Comment on above: Performed By: #### C CAIN ####[facility] [address] [place] [address]Dr. Shahbaz Rogel LYMPHM% 7.0 % Critically low 20.5-60.0 [facility] Comment on above: Performed By: #### Cheri BARLOW ####[facility] [address] [place] [address]Dr. Shahbaz Rogel MCH 28.0 pg Normal 26.7-34.0 [facility] Comment on above: Performed By: #### Cheri BARLOW ####[facility] [address] [place], [place] [address]Dr. Shahbaz Rogel MCHC 31.5 g/dl Normal 29.9-35.2 [facility] Comment on above: Performed By: #### Cheri BARLOW ####[facility] [address] [place] [address]Dr. Shahbaz Rogel MCV 89.0 fL Normal 81.0-99.0 [facility] Comment on above: Performed By: #### Cheri BARLOW ####[facility] [address] [place], [place] [address]Dr. Shahbaz Rogel METAMYELOCYTE # Normal [facility] Comment on above: Performed By: #### Cheri BARLOW ####[facility] [address] [place] [address]Dr. Shahbaz Rogel METAMYELOCYTE % Normal [facility] Comment on above: Performed By: #### C CAIN ####[facility] [address] [place] [address]Dr. Shahbaz Rogel MONOM# 0.00 103/ul Critically low 0.30-0.[address] [facility] Comment on above: Performed By: #### C CAIN ####[facility] [address] [place] [id number]. Shahbaz Rogel MONOM% 0.0 % Critically low 1.7-12.0 [facility] Comment on above: Performed By: #### C CAIN ####[facility] [address] [place] [id number]. Shahbaz Rogel MPV 9.8 fL Normal 9.5-13.5 [facility] Comment on above: Performed By: #### C CAIN ####[facility] [address] [place] [phone]. Shahbaz Rogel MYELOCYTE # Normal [facility] Comment on above: Performed By: #### C CAIN ####[facility] [address] [place] [id number]. Shahbaz Rogel MYELOCYTE % Normal [facility] Comment on above: Performed By: #### Cheri BARLOW ####[facility] [address] [place], [place] [address]Dr. Shahbaz Rogel NRBC Normal [facility] Comment on above: Performed By: #### C CAIN ####[facility] [address] [place] [phone]. Shahbaz Rogel PLT 187 103/ul Normal 150-[address] [facility] Comment on above: Performed By: #### C CAIN ####[facility] [address] [place] [id number]. Shahbaz Rogel RBC 4.53 106/ul Normal 4.20-5.[address] [facility] Comment on above: Performed By: #### C CAIN ####[facility] [address] [place] [id number]. Shahbaz Rogel RDW 13.3 % Normal 11.0-15.[address] [facility] Comment on above: Performed By: #### C CAIN ####[facility] [address] [place] [phone]. Shahbaz Rogel SEG # 5.49 103/ul Normal 1.40-6.[address] [facility] Comment on above: Performed By: #### C CANI ####[facility] [address] [place] [address]Dr. Shahbaz Rogel SEG % 93.0 % Critically high 43.0-75.0 [facility] Comment on above: Performed By: #### C CAIN ####[facility] [address] [place] [address]Dr. Shahbaz Rogel WBC 5.9 103/ul Normal 4.0-11.[address] [facility] Comment on above: Performed By: #### C CAIN ####[facility] [address] [place] [address]Dr. Shahbaz Rogel CRPon 07-06-2022 CRP [Mass/Vol] mg/L Normal <=1.0 [facility] Comment on above: Performed By: #### B [employer], CRP, CMP ####[facility] [address] [place], [place] [address]Dr. Shahbaz Rogel PROF 14(COMP METB)on 022 Albumin [Mass/Vol] 3.4 g/dL Normal 3.4-5.0 [facility] Comment on above: Performed By: #### B [employer], CRP, CMP ####[facility] [address] [place], [place] [address]Dr. Shahbaz Rogel Albumin/Globulin [Mass ratio] 1.0 {ratio} Normal [facility] Comment on above: Performed By: #### B [employer], CRP, CMP ####[facility] [address] [place], [place] [address]Dr. Shahbaz Rogel ALP [Catalytic activity/Vol] 92 U/L Normal 46-[address] [facility] Comment on above: Performed By: #### B [employer], CRP, CMP ####[facility] Bfdetgnjvv[address] [place], [place] [address]Dr. Shahbaz Rogel ALT [Catalytic activity/Vol] 21 U/L Normal 14-[address] [facility] Comment on above: Performed By: #### B MANAGER [employer], CRP, CMP ####[facility] Beezlraosv[address] [place], [place] [address]Dr. Shahbaz Rogel Anion gap [Moles/Vol] 13.4 mmol/L Normal Th e [facility] Comment on above: Performed By: #### B MA[employer], CRP, CMP ####[facility] Dqfpvws[address] [place], [place] [address]Dr. Shahbaz Rogel AST [Catalytic activity/Vol] 16 U/L Normal 15-[address] [facility] Comment on above: Performed By: #### B MA[employer]GER [employer], CRP, CMP ####[facility] Lttaqzfmcq[address] [place], [place] [address]Dr. Shahbaz Rogel Bilirubin [Mass/Vol] 0.2 mg/dL Normal 0.2-1.[address] [facility] Comment on above: Performed By: #### B MANAGER [employer], CRP, CMP ####[facility] Oklrfxoasj[address] [place], [place] [address]Dr. Shahbaz Rogel Calcium [Mass/Vol] 9.3 mg/dL Normal 8.5-10.[address] [facility] Comment on above: Performed By: #### B MANAGER [employer], CRP, CMP ####[facility] Pwukdifwhx[address] [place], [place] [address]Dr. Shahbaz Rogel Chloride [Moles/Vol] 105 mmol/L Normal 98-[address] [facility] Comment on above: Performed By: #### B MA[employer]GER [employer], CRP, CMP ####[facility] Ksfx[address] [place], [place] [address]Dr. Shahbaz Rogel CO2 [Moles/Vol] 23.2 mmol/L Normal 21.0-32.[address] [facility] Comment on above: Performed By: #### B MANAGER [employer], CRP, CMP ####[facility] Dwettnsmoo[address] [place], [place] [address]Dr. Shahbaz Rogel Creatinine [Mass/Vol] 1.23 mg/dL Critically high 0.55-1.[address] [facility] Comment on above: Performed By: #### B MA[employer]GER [employer], CRP, CMP ####[facility] Lclfgyimya[address] [place], [place] [address]Dr. Shahbaz Rogel EGFR-AF CITIZEN [place] 55 mL/min/1.73m2 Critically low >=[address] [facility] Comment on above: Performed By: #### B MANAGER [employer] SYSTEMS, CRP, CMP ####[facility] [address]ats[address] [place] [address]Dr. Shahbaz Rogel EGFR-NON AF CITIZEN OF [place] 45 mL/min/1.73m2 Critically low >=60 [facility] Comment on above: Performed By: #### B MANAGER [employer] SYSTEMS, CRP, CMP ####[facility] Hdvgnhurqa[address] [place] [address]Dr. Shahbaz Rogel Globulin (S) [Mass/Vol] 3.3 g/dL Normal [facility] Comment on above: Performed By: #### B MANAGER [employer] SYSTEMS, CRP, CMP ####[facility] Veifvilzgl[address] [place] [address]Dr. Shahbaz Rogel Glucose [Mass/Vol] 171 mg/dL Critically high 74-106 [facility] Comment on above: Performed By: #### B MANAGER [employer]S, CRP, CMP ####[facility] Jljjplxrmn[address] [place] [address]Dr. Shahbaz Rogel Potassium [Moles/Vol] 3.6 mmol/L Normal 3.5-5.1 [facility] Comment on above: Performed By: #### B MANAGER [employer]S, CRP, CMP ####[facility] Fgxadycpbv[address] [place], [place] [address]Dr. Shahbaz Rogel Protein [Mass/Vol] 6.7 g/dL Normal 6.4-8.2 [facility] Comment on above: Performed By: #### B MANAGER [employer]S, CRP, CMP ####[facility] J[address]cufbybt[address] [place] [address]Dr. Shahbaz Rogel Sodium [Moles/Vol] 138 mmol/L Normal 136-145 [facility] Comment on above: Performed By: #### B MANAGER [employer]S, CRP, CMP ####[facility] Uznpwfbkvb[address] [place] [address]Dr. Shahbaz Rogel Urea nitrogen [Mass/Vol] 21.0 mg/dL Critically high 7.0-18.0 [facility] Comment on above: Performed By: #### B MANAGER [employer]S, CRP, CMP ####[facility] S[address]axekjf[address] [place] [address]Dr. Shahbaz Rogel Urea nitrogen/Creatinine [Mass ratio] 17.1 mg/mg Normal The [facility] Comment on above: Performed By: #### B MANAGER [employer]S, CRP, CMP ####[facility] Sswucalwev[address] [place] [address]Dr. Shahbaz Rogel XR CHEST 2 Von 07-06-2022 XR CHEST 2 V Normal [facility] BNPon 07-05-2022 Natriuretic peptide B (Bld) [Mass/Vol] 83.0 pg/mL Normal <=900.[address] [facility] Comment on above: Performed By: #### C RP, CMP, BNP ####[facility] [address]rsgczkxj[address] [place], [place] [address]Dr. Shahbaz Rogel CBC AUTO DIFFon 07-05-2022 BASO # 0.0 103/ul Normal 0.0-0.[address] [facility] Comment on above: Performed By: #### C BC ####[facility] Tmqurfmlwc[address] [place], [place] [address]Dr. Shahbaz Rogel Basophils/100 WBC (Bld) 0.4 % Normal 0.2-2.[address] [facility] Comment on above: Performed By: #### C BC ####[facility] Kkiv[address]kwyiz[address] [place], [place] [address]Dr. Shahbaz Rogel EO # 0.1 103/ul Normal 0.0-0.[address] [facility] Comment on above: Performed By: #### C BC ####[facility] Ortbyjrvvd[address] [place], [place] [address]Dr. Shahbaz Rogel Eosinophils/100 WBC (Bld) 2.9 % Normal 0.9-7.[address] [facility] Comment on above: Performed By: #### C BC ####[facility] [address]awrfg[address] [place], [place] [address]Dr. Shahbaz Rogel Erythrocyte distribution width (RBC) [Ratio] 13.4 % Normal 11.0-15.[address] [facility] Comment on above: Performed By: #### C BC ####[facility] Kudgnqgtva[address] [place], [place] [address]Dr. Shahbaz Rogel Hematocrit (Bld) [Volume fraction] 41.7 % Normal 36.0-48.[address] [facility] Comment on above: Performed By: #### C BC ####[facility] Bdh[address]zfruye[address] [place] [id number]. Shahbaz Rogel Hemoglobin (Bld) [Mass/Vol] 12.9 g/dL Normal 12.0-16.[address] [facility] Comment on above: Performed By: #### C BC ####[facility] Dbggivxtel70[address] [place] [id number]. Shahbaz Rogel IG # 0.00 10e3/ul Normal 0.00-0.03 [facility] Comment on above: Performed By: #### C BC ####[facility] Bjjbzekvlx26[address] [place] [address]Dr. Shahbaz Rogel IG % 0.0 % Normal 0.0-0.5 [facility] Comment on above: Performed By: #### C BC ####[facility] Aanueqqptg[address] [place], [place] [address]Dr. Shahbaz Rogel LYMPH # 1.5 103/ul Normal 1.2-3.[address] [facility] Comment on above: Performed By: #### C BC ####[facility] Ercgheasut[address] [place] [address]Dr. Shahbaz Rogel Lymphocytes/100 WBC (Bld) 32.9 % Normal 20.5-60.0 [facility] Comment on above: Performed By: #### C BC ####[facility] Wboumtmqtb[address] [place] [address]Dr. Shahbaz Rogel MANUAL DIFF REQ NO Normal The [facility] Comment on above: Performed By: #### C BC ####[facility] Dmflznoxsx9[address] [place] [id number]. Shahbaz Rogel MCH (RBC) [Entitic mass] 28.0 pg Normal 26.7-34.[address] [facility] Comment on above: Performed By: #### C BC ####[facility] Uihcvwwlji72[address] [place] [id number]. Shahbaz Juan F MCHC (RBC) [Mass/Vol] 30.9 g/dL Normal 29.9-35.[address] [facility] Comment on above: Performed By: #### C BC ####[facility] Prpmvubajw27[address] [place] [phone]. Shahbaz Rogel MCV (RBC) [Entitic vol] 90.5 fL Normal 81.0-99.[address] [facility] Comment on above: Performed By: #### C BC ####[facility] Xsyhuwyesl7[address] [place] [id number]. Shahbaz Rogel MONO # 0.4 103/ul Normal 0.3-0.[address] [facility] Comment on above: Performed By: #### C BC ####[facility] Hhrdcpflrc36[address] [place] [phone]. Shahbaz Juan F Monocytes/100 WBC (Bld) 8.0 % Normal 1.7-12.[address] [facility] Comment on above: Performed By: #### C BC ####[facility] F[address]vzrumyr[address] [place], [place] [address]Dr. Shahbaz Rogel NEUT # 2.5 103/ul Normal 1.4-6.[address] [facility] Comment on above: Performed By: #### C BC ####[facility] [address]we[address] [place], [place] [id number]. Shahbaz Juan F Neutrophils/100 WBC (Bld) 55.8 % Normal 43.0-75.[address] [facility] Comment on above: Performed By: #### C BC ####[facility] Mlbhsafexe[address] [place], [place] [id number]. Shahbaz Juan F Platelet mean volume (Bld) [Entitic vol] 9.7 fL Normal 9.5-13.[address] [facility] Comment on above: Performed By: #### C BC ####[facility] Pxddhyaeic[address] [place], [place] [id number]. Shahbaz Juan F PLT 158 103/ul Normal 150-[address] [facility] Comment on above: Performed By: #### C BC ####[facility] Vbjrwoiocp34[address] [place] [phone]. Shahbaz Rogel RBC 4.61 106/ul Normal 4.20-5.[address] [facility] Comment on above: Performed By: #### C BC ####[facility] Fbjgzrtejt101[address] [place] [address]Dr. Lilajarrod Juan F WBC 4.5 103/ul Normal 4.0-11.0 [facility] Comment on above: Performed By: #### C BC ####[facility] Fhsrbwlpey[address] [place] [address]Dr. Lilajarrod Rogel CRPon 07-05-2022 CRP [Mass/Vol] mg/L Normal <=1.0 [facility] Comment on above: Performed By: #### C RP, CMP, BNP ####[facility] Aytzrateqd5[address] [place] [address]Dr. Shahbaz Rogel ECHO LIMITED STUDYon ECHO LIMITED STUDY Normal [facility] PROF 14(COMP METB)on Albumin [Mass/Vol] 3.2 g/dL Critically low 3.4-5.0 [facility] Comment on above: Performed By: #### C RP, CMP, BNP ####[facility] Hcvdmghmuc46[address] [place] [address]Dr. Shahbaz Rogel Albumin/Globulin [Mass ratio] 1.0 {ratio} Normal [facility] Comment on above: Performed By: #### C RP, CMP, BNP ####[facility] Yzqmzlnryw32[address] [place] [address]Dr. Shahbaz Rogel ALP [Catalytic activity/Vol] 88 U/L Normal 46-116 [facility] Comment on above: Performed By: #### C RP, CMP, BNP ####[facility] Cvscagmsud44[address] [place] [address]Dr. Shahbaz Rogel ALT [Catalytic activity/Vol] 17 U/L Normal 14-59 [facility] Comment on above: Performed By: #### C RP, CMP, BNP ####[facility] Vzgvnqacwk67[address] [place] [address]Dr. Shahbaz Rogel Anion gap [Moles/Vol] 12.5 mmol/L Normal [facility] Comment on above: Performed By: #### C RP, CMP, BNP ####[facility] V[address]nelugmhd[address] [place], [place] [address]Dr. Shahbaz Roegl AST [Catalytic activity/Vol] 18 U/L Normal 15-[address] [facility] Comment on above: Performed By: #### C RP, CMP, BNP ####[facility] K[address]em[address]ilix[address] [place], [place] [address]Dr. Shahbaz Rogel Bilirubin [Mass/Vol] 0.3 mg/dL Normal 0.2-1.[address] [facility] Comment on above: Performed By: #### C RP, CMP, BNP ####[facility] [address]cpqsu[address] [place], [place] [address]Dr. Shahbaz Rogel Calcium [Mass/Vol] 8.9 mg/dL Normal 8.5-10.[address] [facility] Comment on above: Performed By: #### C RP, CMP, BNP ####[facility] Ltyoavjyyl[address] [place], [place] [address]Dr. Shahbaz Rogel Chloride [Moles/Vol] 103 mmol/L Normal 98-[address] [facility] Comment on above: Performed By: #### C RP, CMP, BNP ####[facility] [address]vvyxrmck[address] [place], [place] [address]Dr. Shahbaz Rogel CO2 [Moles/Vol] 28.1 mmol/L Normal 21.0-32.[address] [facility] Comment on above: Performed By: #### C RP, CMP, BNP ####[facility] Huwlvyomal[address] [place], [place] [address]Dr. Shahbaz Rogel Creatinine [Mass/Vol] 1.24 mg/dL Critically high 0.55-1.[address] [facility] Comment on above: Performed By: #### C RP, CMP, BNP ####[facility] Ajwpmmvhgj[address] [place], [place] [address]Dr. Shahbaz Rogel EGFR-AF CITIZ[place] 54 mL/min/1.73m2 Critically low >=[address] [facility] Comment on above: Performed By: #### C RP, CMP, BNP ####[facility] Irpypwilva[address] [place], [place] [address]Dr. Shahbaz Rogel EGFR-NON AF CITIZEN [place] 45 mL/min/1.73m2 Critically low >=[address] [facility] Comment on above: Performed By: #### C RP, CMP, BNP ####[facility] Twyqjrzimi[address] [place] [address]Dr. Shahbaz Rogel Globulin (S) [Mass/Vol] 3.1 g/dL Normal [facility] Comment on above: Performed By: #### C RP, CMP, BNP ####[facility] Drmbeqakhe26[address] [place] [address]Dr. Shahbaz Rogel Glucose [Mass/Vol] 115 mg/dL Critically high 74-106 [facility] Comment on above: Performed By: #### C RP, CMP, BNP ####[facility] Evneixzgln9406 [place] [address]Dr. Shahbaz Rogel Potassium [Moles/Vol] 3.6 mmol/L Normal 3.5-5.1 [facility] Comment on above: Performed By: #### C RP, CMP, BNP ####[facility] M[address]avyhunu[address] [place], [place] [address]Dr. Shahbaz Rogel Protein [Mass/Vol] 6.3 g/dL Critically low 6.4-8.2 Th [facility] Comment on above: Performed By: #### C RP, CMP, BNP ####[facility] [address] [place] [address]. Shahbaz Rogel Sodium [Moles/Vol] 140 mmol/L Normal 136-145 [facility] Comment on above: Performed By: #### C RP, CMP, BNP ####[facility] Niyqbzbvak[address] [place] [address]Dr. Shahbaz Rogel Urea nitrogen [Mass/Vol] 18.0 mg/dL Normal 7.0-18.0 [facility] Comment on above: Performed By: #### C RP, CMP, BNP ####[facility] Iuzuntpjfk[address] [place] [address]Dr. Shahbaz Rogel Urea nitrogen/Creatinine [Mass ratio] 14.5 mg/mg Normal [facility] Comment on above: Performed By: #### C RP, CMP, BNP ####[facility] [address] [place] [address]. Shahbaz Rogel T3, TOTAL (TRIIODOTHYRONINE) on 07-05-2022 T3, TOTAL 95 ng/dL Normal 71-[address] [facility] Comment on above: Performed By: #### T 3TOTAL ####[facility] Bqojgylilk[address] [place] [address]Dr. Shahbaz Rogel CARDIAC ROSALINA 3-6on 2 CK [Catalytic activity/Vol] 78 U/L Normal 26-[address] [facility] Comment on above: Performed By: #### C MREP ####[facility] Wnieskxrxe17[address] [place] [phone]. Shahbaz Rogel CK.MB [Mass/Vol] 1.44 ng/mL Normal <=3.[address] [facility] Comment on above: Performed By: #### C MREP ####[facility] [address]soxowwv[address] [place], [place] [address]Dr. Shahbaz Rogel HSTROP 9.0 pg/mL Normal 4.0-51.[address] [facility] Comment on above: Result Comment: CUT- OFF POINTS HAVE BEEN ESTABLISHED BASED ON THE FOURTH UNIVERSAL DEFINITIONS OF MYOCARDIALINFARCTION. THE UPPER REFERENCE LIMIT (URL) OF TROPONIN, DEFINED THE 99TH PERCENTILE OFcTnI DISTRIBUTION IN A REFERENCE POPULATION, HAS BEEN CONFIRMED THE DECISION THRESHOLDFOR SD DIAGNOSIS. Performed By: #### C MREP ####[facility] Uikcbtbnak16[address] [place] [address]Dr. Shahbaz Rogel CK [Catalytic activity/Vol] 88 U/L Normal 26-[address] [facility] Comment on above: Performed By: #### C MREP ####[facility] Zvbpestubl47[address] [place] [phone]. Shahbaz Rogel CK.MB [Mass/Vol] 1.38 ng/mL Normal <=3.[address] [facility] Comment on above: Performed By: #### C MREP ####[facility] [address]wg[address] [place], [place] [id number]. Shahbaz Rogel HSTROP 7.0 pg/mL Normal 4.0-51.[address] [facility] Comment on above: Result Comment: CUT- OFF POINTS HAVE BEEN ESTABLISHED BASED ON THE FOURTH UNIVERSAL DEFINITIONS OF MYOCARDIALINFARCTION. THE UPPER REFERENCE LIMIT (URL) OF TROPONIN, DEFINED THE 99TH PERCENTILE OFcTnI DISTRIBUTION IN A REFERENCE POPULATION, HAS BEEN CONFIRMED THE DECISION THRESHOLDFOR SD DIAGNOSIS. Performed By: #### C MREP ####[facility] Feelleapul[address] [place] [phone]. Shahbaz Rogel CARDIAC ROSALINA ADMITon 022 CK [Catalytic activity/Vol] 87 U/L Normal 26-[address] [facility] Comment on above: Performed By: #### C JACKSON, CMADM ####[facility] Ikaektfkwu[address] [place] [address]Dr. Shahbaz Rogel CK.MB [Mass/Vol] 1.80 ng/mL Normal <=3.[address] [facility] Comment on above: Performed By: #### C JACKSON, CMADM ####[facility] Rdvtylyukn[address] [place], [place] [address]Dr. Shahbaz Rogel HSTROP 7.6 pg/mL Normal 4.0-51.[address] [facility] Comment on above: Result Comment: CUT- OFF POINTS HAVE BEEN ESTABLISHED BASED ON THE FOURTH UNIVERSAL DEFINITIONS OF MYOCARDIALINFARCTION. THE UPPER REFERENCE LIMIT (URL) OF TROPONIN, DEFINED THE 99TH PERCENTILE OFcTnI DISTRIBUTION IN A REFERENCE POPULATION, HAS BEEN CONFIRMED THE DECISION THRESHOLDFOR SD DIAGNOSIS. Performed By: #### C JACKSON, CMADM ####[facility] Eftzspebvw24[address] [place] [address]Dr. Shahbaz Rogel LEN 67 ng/mL Normal 9-[address] [facility] Comment on above: Performed By: #### C JACKSON, CMADM ####[facility] Vxzhmvbrty5[address] [place] [phone]. Shahbaz Rogel CBC AUTO DIFFon 07-04-2022 BASO # 0.0 103/ul Normal 0.0-0.[address] [facility] Comment on above: Performed By: #### C BC ####[facility] Xdmmfhweoq77[address] [place] [address]Dr. Shahbaz Rogel Basophils/100 WBC (Bld) 0.7 % Normal 0.2-2.[address] [facility] Comment on above: Performed By: #### C BC ####[facility] Rdrqcnihzs49[address] [place] [phone]. Shahbaz Rogel EO # 0.1 103/ul Normal 0.0-0.[address] [facility] Comment on above: Performed By: #### C BC ####[facility] Xxullspfcb4565 [place] [address]Dr. Shahbaz Rogel Eosinophils/100 WBC (Bld) 3.4 % Normal 0.9-7.[address] [facility] Comment on above: Performed By: #### C BC ####[facility] [address]noqyf[address] [place], [place] [address]Dr. Shahbaz Rogel Erythrocyte distribution width (RBC) [Ratio] 13.3 % Normal 11.0-15.0 [facility] Comment on above: Performed By: #### C BC ####[facility] [address]jaqfxor[address] [place], [place] [address]Dr. Shahbaz Rogel Hematocrit (Bld) [Volume fraction] 42.1 % Normal 36.0-48.0 [facility] Comment on above: Performed By: #### C BC ####[facility] [address]yaf[address]owzg[address] [place], [place] [address]Dr. Shahbaz Rogel Hemoglobin (Bld) [Mass/Vol] 13.3 g/dL Normal 12.0-16.[address] [facility] Comment on above: Performed By: #### C BC ####[facility] [address]ffk[address] [place], [place] [address]Dr. Shahbaz Rogel IG # 0.01 10e3/ul Normal 0.00-0.[address] [facility] Comment on above: Performed By: #### C BC ####[facility] Mmnrcekhni[address] [place], [place] [address]Dr. Shahbaz Rogel IG % 0.3 % Normal 0.0-0.[address] [facility] Comment on above: Performed By: #### C BC ####[facility] Y[address]udrmbaa[address] [place], [place] [address]Dr. Lilajarrod Rogel LYMPH # 1.0 103/ul Critically low 1.2-3.[address] [facility] Comment on above: Performed By: #### C BC ####[facility] Widnizgone[address] [place] [phone]. Lilajarrod Rogel Lymphocytes/100 WBC (Bld) 35.6 % Normal 20.5-60.0 [facility] Comment on above: Performed By: #### C BC ####[facility] Egdxqfjhnj0942 [place] [phone]. Shahbaz Rogel MANUAL DIFF REQ NO Normal [facility] Comment on above: Performed By: #### C BC ####[facility] Rebiveacye[address] [place] [phone]. Shahbaz Rogel MCH (RBC) [Entitic mass] 27.9 pg Normal 26.7-34.[address] [facility] Comment on above: Performed By: #### C BC ####[facility] [address]zoxhuzf[address] [place], [place] [address]Dr. Shahbaz Rogel MCHC (RBC) [Mass/Vol] 31.6 g/dL Normal 29.9-35.[address] [facility] Comment on above: Performed By: #### C BC ####[facility] [address]wlqvqxn[address] [place], [place] [address]Dr. Shahbaz Rogel MCV (RBC) [Entitic vol] 88.3 fL Normal 81.0-99.0 [facility] Comment on above: Performed By: #### C BC ####[facility] [address] [place], [place] [address]Dr. Shahbaz Rogel MONO # 0.2 103/ul Critically low 0.3-0.[address] [facility] Comment on above: Performed By: #### C BC ####[facility] [address] [place], [place] [address]Dr. Shahbaz Rogel Monocytes/100 WBC (Bld) 7.9 % Normal 1.7-12.[address] [facility] Comment on above: Performed By: #### C BC ####[facility] Corybwqvyn[address] [place], [place] [address]Dr. Shahbaz Rogel NEUT # 1.5 103/ul Normal 1.4-6.[address] [facility] Comment on above: Performed By: #### C BC ####[facility] S[address]imhwfng[address] [place] [address]Dr. Shahbaz Rogel Neutrophils/100 WBC (Bld) 52.1 % Normal 43.0-75.[address] [facility] Comment on above: Performed By: #### C BC ####[facility] Gyb[address]nej[address] [place], [place] [address]Dr. Shahbaz Rogel Platelet mean volume (Bld) [Entitic vol] 9.5 fL Normal 9.5-13.5 [facility] Comment on above: Performed By: #### C BC ####[facility] Ogjyipfkdu[address] [place], [place] [address]Dr. Shahbaz Rogel PLT 172 103/ul Normal 150-[address] [facility] Comment on above: Performed By: #### C BC ####[facility] [address]wq[address]uk[address] [place], [place] [address]Dr. Shahbaz Rogel RBC 4.77 106/ul Normal 4.20-5.[address] [facility] Comment on above: Performed By: #### C BC ####[facility] Mugivixzvt[address] [place], [place] [address]Dr. Shahbaz Rogel WBC 2.9 103/ul Critically low 4.0-11.[address] [facility] Comment on above: Performed By: #### C BC ####[facility] Rxzefwkfah[address] [place], [place] [address]Dr. Shahbaz Rogel CELL COUNT BODY FLUIDon 10-0 BASOS Normal [facility] Comment on above: Performed By: #### B FCC ####[facility] Kelfaddmco[address] [place], [place] [address]Dr. Shahbaz Rogel Eosinophils/100 WBC (Bld) 4 % Normal [facility] Comment on above: Performed By: #### B FCC ####[facility] Wtgeklnwwv[address] [place], [place] [address]Dr. Shahbaz Rogel Lymphocytes/100 WBC (Bld) 12 % Normal [facility] Comment on above: Performed By: #### B FCC ####[facility] Xmeql[address]ecp[address] [place], [place] [address]Dr. Shahbaz Rogel Monocytes/100 WBC (Bld) 4 % Normal [facility] Comment on above: Performed By: #### B FCC ####[facility] V[address]jrfqffj[address] [place] [id number]. Shahbaz Rogel RBC 67 cubic mm Normal [facility] Comment on above: Performed By: #### B FCC ####[facility] Fyxywzneqe17[address] [place] [address]Dr. Shahbaz Rogel SEGS 80 % Normal [facility] Comment on above: Performed By: #### B FCC ####[facility] Gtztntuzsi[address] [place], [place] [address]Dr. Shahbaz Rogel WBC BODY FLUID 223 cubic mm Normal [facility] Comment on above: Performed By: #### B FCC ####[facility] Wlnrujveer[address] [place], [place] [address]Dr. Shahbaz Rogel CULTURE OTHERon 07-04-2022 CULTURE OTHER Culture Observations : NO GROWTH AT 48 HOURS. Normal [facility] Comment on above: Performed By: #### O THCX ####[facility] Vmyujsmlaj[address] [place], [place] [address]Dr. Shahbaz Rogel CYTOLOGYon 07-04-2022 SENT TO REF LAB 07/04/[address] Normal [address] [facility] Comment on above: Performed By: #### C YTO ####[facility] Drixbpzdsc[address] [place], [place] [address]Dr. Shahbaz Rogel Covid-19 PCR (CVDTB)on SARS-CoV-2 (COVID-19) RNA PAVAN+probe Ql (Unsp spec) Not detected Normal NOT DETECTED [facility] Comment on above: Result Comment: When [...] for this test is supported by the [place] of Health and Human Service's declaration that [...] be used). Performed By: #### C VDTBH ####[facility] Pxnmddcfhh[address] [place] [address]Dr. Shahbaz Rogel GRAM STAINon 07-04-2022 COMMENTS NO ORGANISMS OBSERVED Normal [facility] Comment on above: Performed By: #### G STAIN ####[facility] Xfbidmjmov[address] [place], [place] [address]Dr. Lilajarrod Juan F DIPHTHEROIDS Normal [facility] Comment on above: Performed By: #### G STAIN ####[facility] Lqawrlzwsk[address] [place], [place] [address]Dr. Shahbaz Rogel EPITHELIALS Normal [facility] Comment on above: Performed By: #### G STAIN ####[facility] Gldbjxfflc[address] [place], [place] [address]Dr. Shahbaz Rogel FUNGAL ELEMENTS Normal [facility] Comment on above: Performed By: #### G STAIN ####[facility] Rilsdsxrvs[address] [place], [place] [address]Dr. Shahbaz Rogel GRAM NEG BACILLI Normal [facility] Comment on above: Performed By: #### G STAIN ####[facility] Eskuhmqjpm[address] [place], [place] [address]Dr. Shahbaz Rogel GRAM NEG DIPPLOCOCCI Normal [facility] Comment on above: Performed By: #### G STAIN ####[facility] Bygairmqcl[address] [place], [place] [address]Dr. Shahbaz Rogel GRAM POS BACILLI Normal [facility] Comment on above: Performed By: #### G STAIN ####[facility] Thpceaycnl[address] [place], [place] [address]Dr. Shahbaz Rogel GRAM POSITIVE COCCI Normal [facility] Comment on above: Performed By: #### G STAIN ####[facility] Tqnpavdzhk[address] [place] [address]Dr. Shahbaz Rogel GRAM STAIN SOURCE Rt Lower Lobe Bronch ial Washing Normal [facility] Comment on above: Performed By: #### G STAIN ####[facility] Rlncbvyqhi40[address] [place] [address]Dr. Shahbaz Rogel GS_DIPTH Normal [facility] Comment on above: Performed By: #### G STAIN ####[facility] Gszrnjaqjx08[address] [place] [address]Dr. Shahbaz Rogel WBC RARE Normal [facility] Comment on above: Performed By: #### G STAIN ####[facility] Shtmljpamu5[address] [place] [address]Dr. Shahbaz Rogel PROF 14(COMP METB)on 022 Albumin [Mass/Vol] 3.6 g/dL Normal 3.4-5.0 [facility] Comment on above: Performed By: #### C CINDY PAZ ####[facility] S[address]stbmsx[address] [place], [place] [address]Dr. Shahbaz Rogel Albumin/Globulin [Mass ratio] 1.1 {ratio} Normal [facility] Comment on above: Performed By: #### C CINDY PAZ ####[facility] [address]ajicmruq[address] [place], [place] [address]Dr. Shahbaz Rogel ALP [Catalytic activity/Vol] 102 U/L Normal 46-[address] [facility] Comment on above: Performed By: #### C CINDY PAZ ####[facility] Ogvrgbwszz60[address] [place] [address]Dr. Shahbaz Rogel ALT [Catalytic activity/Vol] 19 U/L Normal 14-[address] [facility] Comment on above: Performed By: #### C CINDY PAZ ####[facility] Plwtuhh[address] [place], [place] [address]Dr. Shahbaz Rogel Anion gap [Moles/Vol] 9.5 mmol/L Normal [facility] Comment on above: Performed By: #### C CINDY PAZ ####[facility] [address]vpxhasgkl[address] [place], [place] [address]Dr. Shahbaz Rogel AST [Catalytic activity/Vol] 19 U/L Normal 15-[address] [facility] Comment on above: Performed By: #### C CINDY PAZ ####[facility] Wwkvhfyuow24[address] [place] [address]Dr. Shahbaz Rogel Bilirubin [Mass/Vol] 0.3 mg/dL Normal 0.2-1.[address] [facility] Comment on above: Performed By: #### C JACKSON, CINDY ####[facility] Beubpshgqe[address] [place] [address]Dr. Shahbaz Rogel Calcium [Mass/Vol] 8.8 mg/dL Normal 8.5-10.[address] [facility] Comment on above: Performed By: #### C CINDY PAZ ####[facility] Mdxqqmtobt[address] [place], [place] [address]Dr. Shahbaz Rogel Chloride [Moles/Vol] 107 mmol/L Normal 98-[address] [facility] Comment on above: Performed By: #### C CINDY PAZ ####[facility] [address]xmrrxucqt[address] [place], [place] [address]Dr. Shahbaz Rogel CO2 [Moles/Vol] 29.5 mmol/L Normal 21.0-32.[address] [facility] Comment on above: Performed By: #### C CINDY PAZ ####[facility] Jefmtvdghc[address] [place], [place] [address]Dr. Shahbaz Rogel Creatinine [Mass/Vol] 0.97 mg/dL Normal 0.55-1.[address] [facility] Comment on above: Performed By: #### C CINDY PAZ ####[facility] Vzeundzkxz[address] [place], [place] [address]Dr. Shahbaz Rogel EGFR-AF CITIZEN [place] >60 Normal >=[address] [facility] Comment on above: Performed By: #### C CINDY PAZ ####[facility] [address]wyvtv[address] [place], [place] [address]Dr. Shahbaz Rogel EGFR-NON AF CITIZEN OF [place] 59 mL/min/1.73m2 Critically low >=[address] [facility] Comment on above: Performed By: #### C CINDY PAZ ####[facility] C[address]qeotppx40[address] [place] [phone]. Shahbaz Rogel Globulin (S) [Mass/Vol] 3.2 g/dL Normal [facility] Comment on above: Performed By: #### C JACKSON, CINDY ####[facility] Qefgfszkke[address] [place] [phone]. Shahbaz Rogel Glucose [Mass/Vol] 89 mg/dL Normal 74-[address] [facility] Comment on above: Performed By: #### C JACKSON, CINDY ####[facility] Ctsnjbjxpr[address] [place] [address]Dr. Shahbaz Rogel Potassium [Moles/Vol] 4.0 mmol/L Normal 3.5-5.[address] [facility] Comment on above: Performed By: #### C JACKSON, CINDY ####[facility] Ryjdpjkcld[address] [place] [address]Dr. Shahbaz Rogel Protein [Mass/Vol] 6.8 g/dL Normal 6.4-8.[address] [facility] Comment on above: Performed By: #### C JACKSON, CINDY ####[facility] Jtvjrjldap[address] [place] [address]Dr. Shahbaz Rogel Sodium [Moles/Vol] 142 mmol/L Normal 136-[address] [facility] Comment on above: Performed By: #### C JACKSON, CINDY ####[facility] Bixcdbolxh[address] [place] [address]Dr. Shahbaz Rogel Urea nitrogen [Mass/Vol] 11.0 mg/dL Normal 7.0-18.[address] [facility] Comment on above: Performed By: #### C JACKSON, CINDY ####[facility] Bmorzkbttb[address] [place] [address]Dr. Shahbaz Rogel Urea nitrogen/Creatinine [Mass ratio] 11.3 mg/mg Normal [facility] Comment on above: Performed By: #### C JACKSON, CMADM ####[facility] Sezdrfldps[address] [place], [place] [address]Dr. Shahbaz Rogel T4on 07-04-2022 T4 [Mass/Vol] 4.70 ug/dL Critically low 4.80-13.[address] [facility] Comment on above: Performed By: #### T SH, T4 ####[facility] Mgdptheswo[address] [place] [phone]. Shahbaz Rogel TSHon 07-04-2022 TSH 0.359 uIU/mL Normal 0.358-3.74 0 [facility] Comment on above: Performed By: #### T SH, T4 ####[facility] Lmcylotqxk[address] [place] [address]Dr. Shahbaz Rogel XR CHEST 1 Von 07-04-2022 XR CHEST 1 V Normal [facility] XR CHEST 1 V Normal [facility] CHLAMYDIA PNEUMONIAE IgG IgM IgAon 06-27-2022 Chlamydia pneumoniae IgA <1:16 Normal Neg:<1:16 [facility] Comment on above: Performed By: #### C HLMPNE ####[facility] U[address]jbe[address] [place], [place] [address]Dr. jarrod Rogel Chlamydia pneumoniae IgG <1:16 Normal Neg:<1:16 [facility] Comment on above: Performed By: #### C HLMPNE ####[facility] Rpvpujtgph[address] [place], [place] [address]Dr. [facility] Chlamydia pneumoniae IgM <1:10 Normal Neg:<1:10 [facility] Comment on above: Performed By: #### C HLMPNE ####[facility] [address]wgnsgfkq[address] [place], [place] [address]Dr. Shahbaz Rogel Test Information: Comment Normal [facility] Comment on above: Result Comment: This test [...] or procedure. Performed By: #### C HLMPNE ####[facility] L[address]voawums[address] [place], [place] [address]Dr. Shahbaz Rogel Covid-19 PCR (CVDTB)on 06-03 SARS-CoV-2 (COVID-19) RNA PAVAN+probe Ql (Unsp spec) Not detected Normal NOT DETECTED [facility] Comment on above: Result Comment: This test is not yet approved or cleared by the [place] FDA. When there are no FDA-approved or cleared tests available, and other criteria are met, FDA can make tests available under an emergency access mechanism called an Emergency Use Authorization (EUA). The EUA for this test is supported by the [place] of Health and Human Service's (HHS's) declaration [...] with SARS-CoV-2. Performed By: #### C VDTBH ####[facility] X[address]nslhke[address] [place], [place] [address]Dr. Shahbaz Rogel CYCLIC CITRULLINATED PEPTIDE AB (CCP)on 06-25-2022 CCP Antibodies IgG/IgA 13 units Normal 0-19 [facility] Comment on above: Result Comment: Nega tive <20 Weak positive 20 - 39 Moderate positive 40 - 59 Strong positive >59 Performed By: #### C CPAB ####[facility] Dtohvnlrhx[address] [place] [address]Dr. Shahbaz Rogel ANTI NEUTROPHIL CYTOPLASMIC AB (ANCA) PRon 06-24-2022 Anti-MPO Antibodies <0.2 Normal 0.0-0.9 [facility] Comment on above: Result Comment: Perf ormed at: BN Performed By: #### A NCAP ####[facility] [address]flavnlcj[address] [place], [place] [address]Dr. Shahbaz Rogel Anti-PR3 Antibodies 5.0 units Critically high 0.0-0.9 [facility] Comment on above: Result Comment: Perf ormed at: BN Performed By: #### A NCAP ####[facility] [address]wnylmvdb[address] [place] [address]Dr. Lilajarrod Juan F Atypical pANCA <1:20 Normal Neg:<1:[address] [facility] Comment on above: Result Comment: The atypical pANCA pattern has been observed in a significantpercentage of patients with ulcerative colitis, primary sclerosingcholangitis and autoimmune hepatitis.Performed at: CB Performed By: #### A NCAP ####[facility] [address]ptngym[address] [place] [address]Dr. Shahbaz Rogel Cytoplasmic (C-ANCA) <1:20 Normal Neg:<1:[address] [facility] Comment on above: Result Comment: Perf ormed at: CB Performed By: #### A NCAP ####[facility] Gxdiuzttwk[address] [place] [address]Dr. Shahbaz Rogel Perinuclear (P-ANCA) 1:80 Critically high Neg:<1:[address] [facility] Comment on above: Result Comment: The presence of positive fluorescence exhibiting P-ANCA or C-ANCApatterns alone is not specific for the diagnosis of Ada'sGranulomatosis (WG) or microscopic polyangiitis. Decisions abouttreatment should not be based solely on ANCA IFA results. TheInternational ANCA Group Consensus recommends follow up testing ofpositive sera with both SC-3 and MPO-ANCA enzyme immunoassays. Asmany as 5% serum samples are positive only by EIA.Ref. AM J Clin Pathol 1999;111:507-513.Performed at: CB Performed By: #### A NCAP ####[facility] [address]wklzzdus[address] [place] [address]Dr. Shahbaz Rogel ANTIGLOMERULAR BASEMENT MEMB ANTOINE ABSon 06-24-2022 Anti-GBM Antibodies <0.2 Normal 0.0-0.9 [facility] Comment on above: Performed By: #### A GBM ####[facility] Khohzstvyy[address] [place] [address]Dr. Shahbaz Rogel SHAHANA EIA W/REFLEX 5 BIOMARKER Son 06-23-2022 SHAHANA Direct Negative Normal Negative [facility] Comment on above: Performed By: #### A NARF ####[facility] [address]axddlwip[address] [place] [address]Dr. Lilajarrod Rogel ANTISCLERODERMA ABon 022 Antiscleroderma-70 Antibodies <0.2 Normal 0.0-0.[address] [facility] Comment on above: Performed By: #### A NSCLER ####[facility] [address]jibz[address] [place], [place] [address]Dr. Shahbaz Rogel RHEUMATOID FACTORon 06-23-20 RA Latex Turbid. <10.0 Normal <14.[address] [facility] Comment on above: Performed By: #### R F ####[facility] [address]ieisub[address] [place], [place] [address]Dr. Shahbaz Rogel CBC AUTO DIFFon 06-22-2022 BASO # 0.0 103/ul Normal 0.0-0.[address] [facility] Comment on above: Performed By: #### C BC ####[facility] [address]vpsktq[address] [place], [place] [address]Dr. Shahbaz Rogel Basophils/100 WBC (Bld) 0.5 % Normal 0.2-2.[address] [facility] Comment on above: Performed By: #### C BC ####[facility] [address]hhvif[address] [place], [place] [address]Dr. Shahbaz Rogel EO # 0.1 103/ul Normal 0.0-0.[address] [facility] Comment on above: Performed By: #### C BC ####[facility] [address]byrnigdz[address] [place], [place] [address]Dr. Shahbaz Rogel Eosinophils/100 WBC (Bld) 3.4 % Normal 0.9-7.[address] [facility] Comment on above: Performed By: #### C BC ####[facility] [address]oqzttewi[address] [place], [place] [address]Dr. Shahbaz Rogel Erythrocyte distribution width (RBC) [Ratio] 13.2 % Normal 11.0-15.[address] [facility] Comment on above: Performed By: #### C BC ####[facility] [address]mbzgzv[address] [place], [place] [address]Dr. Shahbaz Rogel Hematocrit (Bld) [Volume fraction] 45.6 % Normal 36.0-48.[address] [facility] Comment on above: Performed By: #### C BC ####[facility] Hclupwdfkc[address] [place] [phone]. Shahbaz Rogel Hemoglobin (Bld) [Mass/Vol] 14.7 g/dL Normal 12.0-16.0 [facility] Comment on above: Performed By: #### C BC ####[facility] Dzuuuleeki[address] [place] [phone]. Shahbaz Rogel IG # 0.01 10e3/ul Normal 0.00-0.03 [facility] Comment on above: Performed By: #### C BC ####[facility] Hpejtkxqtg34[address] [place] [address]Dr. Shahbaz Juan F IG % 0.3 % Normal 0.0-0.5 [facility] Comment on above: Performed By: #### C BC ####[facility] [address]xfveiqzj[address] [place], [place] [address]Dr. Shahbaz Juan F LYMPH # 1.0 103/ul Critically low 1.2-3.8 [facility] Comment on above: Performed By: #### C BC ####[facility] Yrngtrusvm[address] [place] [address]Dr. Shahbaz Juan F Lymphocytes/100 WBC (Bld) 25.7 % Normal 20.5-60.0 [facility] Comment on above: Performed By: #### C BC ####[facility] Adgpsfyaoe[address] [place] [address]Dr. Shahbaz Juan F MANUAL DIFF REQ NO Normal [facility] Comment on above: Performed By: #### C BC ####[facility] Mfwgjklwpo45[address] [place] [phone]. Shahbaz Juan F MCH (RBC) [Entitic mass] 28.1 pg Normal 26.7-34.[address] [facility] Comment on above: Performed By: #### C BC ####[facility] Ehqfnpiipf8[address] [place] [phone]. Shahbaz Juan F MCHC (RBC) [Mass/Vol] 32.2 g/dL Normal 29.9-35.[address] [facility] Comment on above: Performed By: #### C BC ####[facility] Gnxjavexek[address] [place] [phone]. Shahbaz Rogel MCV (RBC) [Entitic vol] 87.2 fL Normal 81.0-99.[address] [facility] Comment on above: Performed By: #### C BC ####[facility] Weryssdyzr[address] [place] [phone]. Shahbaz Rogel MONO # 0.2 103/ul Critically low 0.3-0.[address] [facility] Comment on above: Performed By: #### C BC ####[facility] Kswetmuixm7[address] [place] [phone]. Shahbaz Juan F Monocytes/100 WBC (Bld) 6.0 % Normal 1.7-12.[address] [facility] Comment on above: Performed By: #### C BC ####[facility] [address]njjhloun[address] [place], [place] [address]Dr. Shahbaz Rogel NEUT # 2.5 103/ul Normal 1.4-6.[address] [facility] Comment on above: Performed By: #### C BC ####[facility] [address] [place], [place] [address]Dr. Shahbaz Juan F Neutrophils/100 WBC (Bld) 64.1 % Normal 43.0-75.[address] [facility] Comment on above: Performed By: #### C BC ####[facility] [address]vqocdmblq[address] [place], [place] [address]Dr. Shahbaz Juan F Platelet mean volume (Bld) [Entitic vol] 9.4 fL Critically low 9.5-13.[address] [facility] Comment on above: Performed By: #### C BC ####[facility] Sdtbhgufoc76[address] [place] [phone]. Shahbaz Juan F PLT 212 103/ul Normal 150-[address] [facility] Comment on above: Performed By: #### C BC ####[facility] [address]ht[address]wxufy[address] [place], [place] [address]Dr. Shahbaz Rogel RBC 5.23 106/ul Normal 4.20-5.[address] [facility] Comment on above: Performed By: #### C BC ####[facility] Ymvziqmsrh[address] [place] [address]Dr. Lilajarrod Juan F WBC 3.9 103/ul Critically low 4.0-11.0 [facility] Comment on above: Performed By: #### C BC ####[facility] Gglaglqgjs25[address] [place] [address]Dr. Shahbaz Rogel PROF 14(COMP METB)on 022 Albumin [Mass/Vol] 4.1 g/dL Normal 3.4-5.0 [facility] Comment on above: Performed By: #### C MP ####[facility] Kmjkhnxfku[address] [place] [address]Dr. Shahbaz Rogel Albumin/Globulin [Mass ratio] 1.1 {ratio} Normal [facility] Comment on above: Performed By: #### C MP ####[facility] T[address]affevaas[address] [place], [place] [address]Dr. Shahbaz Rogel ALP [Catalytic activity/Vol] 133 U/L Critically high 46-[address] [facility] Comment on above: Performed By: #### C MP ####[facility] Y[address]duvohzs[address] [place], [place] [address]Dr. Lilajarrod Rogel ALT [Catalytic activity/Vol] 29 U/L Normal 14-59 [facility] Comment on above: Performed By: #### C MP ####[facility] Xjobueonov[address] [place] [address]Dr. Shahbaz Rogel Anion gap [Moles/Vol] 10.9 mmol/L Normal [facility] Comment on above: Performed By: #### C MP ####[facility] Rimrzuhvpo28[address] [place] [address]Dr. Shahbaz Rogel AST [Catalytic activity/Vol] 23 U/L Normal 15-37 [facility] Comment on above: Performed By: #### C MP ####[facility] Shvqvimwkh[address] [place], [place] [address]Dr. Shahbaz Rogel Bilirubin [Mass/Vol] 0.3 mg/dL Normal 0.2-1.[address] [facility] Comment on above: Performed By: #### C MP ####[facility] Ttompjqtgf[address] [place] [address]Dr. Shahbaz Rogel Calcium [Mass/Vol] 9.1 mg/dL Normal 8.5-10.[address] [facility] Comment on above: Performed By: #### C MP ####[facility] Yfqrznwshi[address] [place] [address]Dr. Shahbaz Rogel Chloride [Moles/Vol] 103 mmol/L Normal 98-[address] [facility] Comment on above: Performed By: #### C MP ####[facility] Csqpfgikcd17[address] [place] [address]Dr. Shahbaz Rogel CO2 [Moles/Vol] 30.8 mmol/L Normal 21.0-32.[address] [facility] Comment on above: Performed By: #### C MP ####[facility] Hippvqciwx[address] [place], [place] [address]Dr. Shahbaz Rogel Creatinine [Mass/Vol] 1.02 mg/dL Normal 0.55-1.[address] [facility] Comment on above: Performed By: #### C MP ####[facility] Ppuggqhofl[address] [place], [place] [address]Dr. Shahbaz Rogel EGFR-AF CITIZEN [place] >60 Normal >=[address] [facility] Comment on above: Performed By: #### C MP ####[facility] Fxpbnhbiel[address] [place], [place] [address]Dr. Shahbaz Rogel EGFR-NON AF CITIZEN OF [place] 56 mL/min/1.73m2 Critically low >=[address] [facility] Comment on above: Performed By: #### C MP ####[facility] Wameizqcrv[address] [place], [place] [address]Dr. Shahbaz Rogel Globulin (S) [Mass/Vol] 3.7 g/dL Normal The [facility] Comment on above: Performed By: #### C MP ####[facility] Qvlhhgoylr[address] [place], [place] [address]Dr. Shahbaz Rogel Glucose [Mass/Vol] 80 mg/dL Normal 74-[address] [facility] Comment on above: Performed By: #### C MP ####[facility] Mscffhwhpv5519 [place] [phone]. Shahbaz Rogel Potassium [Moles/Vol] 3.7 mmol/L Normal 3.5-5.[address] [facility] Comment on above: Performed By: #### C MP ####[facility] Xzinuohzkf9759 [place], [place] [address]Zt. Shahbaz Rogel Protein [Mass/Vol] 7.8 g/dL Normal 6.4-8.[address] [facility] Comment on above: Performed By: #### C MP ####[facility] Vskbeoxevv0564 [place] [phone]. Shahbaz Rogel Sodium [Moles/Vol] 141 mmol/L Normal 136-[address] [facility] Comment on above: Performed By: #### C MP ####[facility] Rxndpwysxe6084 [place] [phone]. Shahbaz Rogel Urea nitrogen [Mass/Vol] 10.0 mg/dL Normal 7.0-18.[address] [facility] Comment on above: Performed By: #### C MP ####[facility] Iofavgmrwb8149 [place] [phone]. Shahbaz Rogel Urea nitrogen/Creatinine [Mass ratio] 9.8 mg/mg Normal [facility] Comment on above: Performed By: #### C MP ####[facility] Uhdzbhvsju1165 [place] [phone]. Shahbaz Rogel SED RATE [facility] 2021 SED RATE 17 mm/hr Normal <=[address] [facility] Comment on above: Performed By: #### S EDR ####[facility] Fmjghuuqsf[address] [place] [phone]. Shahbaz Rogel CT CHEST HI RESOLUTIONon CT CHEST HI RESOLUTION Normal [facility] XR ANKLE RT MIN 3 VIEWSon XR ANKLE RT MIN 3 VIEWS Normal The [facility] CT CHEST WO CONon 03-03-2022 CT CHEST WO CON Normal The [facility] CT CSPINE WO CONon 2 CT CSPINE WO CON Normal The [facility] XR CHEST 2 Von 06-02-2022 XR CHEST 2 V Normal The [facility] XR STERNUM MIN 2 VIEWSon XR STERNUM MIN 2 VIEWS Normal Th e [facility] CT HEAD WO CONon 03-02-2022 CT HEAD WO CON Normal The [facility] CBC AUTO DIFFon 01-21-2022 BASO # 0.0 103/ul Normal 0.0-0.[address] [facility] Comment on above: Performed By: #### C BC ####[facility] Pmfeargsmb26[address] [place] [address]Dr. Shahbaz Rogel Basophils/100 WBC (Bld) 0.0 % Critically low 0.2-2.[address] [facility] Comment on above: Performed By: #### C BC ####[facility] Begaynzrla[address] [place], [place] [address]Dr. Shahbaz Rogel EO # 0.0 103/ul Normal 0.0-0.[address] [facility] Comment on above: Performed By: #### C BC ####[facility] Sgyowderwk74[address] [place], [place] [address]Dr. Shahbaz Rogel Eosinophils/100 WBC (Bld) 0.0 % Critically low 0.9-7.[address] [facility] Comment on above: Performed By: #### C BC ####[facility] Xfycsssxsi[address] [place], [place] [address]Dr. Shahbaz Rogel Erythrocyte distribution width (RBC) [Ratio] 14.2 % Normal 11.0-15.0 [facility] Comment on above: Performed By: #### C BC ####[facility] Krdaqnsvnw[address] [place], [place] [address]Dr. Shahbaz Rogel Hematocrit (Bld) [Volume fraction] 38.9 % Normal 36.0-48.[address] [facility] Comment on above: Performed By: #### C BC ####[facility] Bocvdmmips[address] [place], [place] [address]Dr. Shahbaz Rogel Hemoglobin (Bld) [Mass/Vol] 11.8 g/dL Critically low 12.0-16.[address] [facility] Comment on above: Performed By: #### C BC ####[facility] Ikuyggdknx2[address] [place] [address]Dr. Shahbaz Rogel IG # 0.03 10e3/ul Normal 0.00-0.03 [facility] Comment on above: Performed By: #### C BC ####[facility] Fqrgwwoeys[address] [place], [place] [address]DrChen Shahbaz Rogel IG % 0.4 % Normal 0.0-0.5 [facility] Comment on above: Performed By: #### C BC ####[facility] Hwdjfyxkbz[address] [place], [place] [address]DrChen Shahbaz Juan F LYMPH # 0.8 103/ul Critically low 1.2-3.[address] [facility] Comment on above: Performed By: #### C BC ####[facility] Upaeyzpifq[address] [place], [place] [address]DrChen Shahbaz Juan F Lymphocytes/100 WBC (Bld) 10.3 % Critically low 20.5-60.0 [facility] Comment on above: Performed By: #### C BC ####[facility] Quaqikzdiz[address] [place], [place] [address]DrChen Shahbaz Juan F MANUAL DIFF REQ NO Normal [facility] Comment on above: Performed By: #### C BC ####[facility] Vktsefwydp[address] [place], [place] [address]DrChen Shahbaz Rogel MCH (RBC) [Entitic mass] 27.1 pg Normal 26.7-34.[address] [facility] Comment on above: Performed By: #### C BC ####[facility] Qwmlqscsvt[address] [place], [place] [address]DrChen Shahbaz Juan F MCHC (RBC) [Mass/Vol] 30.3 g/dL Normal 29.9-35.[address] [facility] Comment on above: Performed By: #### C BC ####[facility] Seyptlkams[address] [place], [place] [address]DrChen Shahbaz Juan F MCV (RBC) [Entitic vol] 89.2 fL Normal 81.0-99.[address] [facility] Comment on above: Performed By: #### C BC ####[facility] Sgkgifljye[address] [place], [place] [address]Dr. Shahbaz Rogel MONO # 0.4 103/ul Normal 0.3-0.[address] [facility] Comment on above: Performed By: #### C BC ####[facility] Pgccmevjsn2202 [place] [address]Dr. Shahbaz Rogel Monocytes/100 WBC (Bld) 4.7 % Normal 1.7-12.[address] [facility] Comment on above: Performed By: #### C BC ####[facility] Vagyootbqx9[address] [place] [address]Dr. Shahbaz Rogel NEUT # 6.6 103/ul Critically high 1.4-6.[address] [facility] Comment on above: Performed By: #### C BC ####[facility] Eqnlodomip9[address] [place], [place] [address]Dr. Shahbaz Rogel Neutrophils/100 WBC (Bld) 84.6 % Critically high 43.0-75.[address] [facility] Comment on above: Performed By: #### C BC ####[facility] S[address]fkuhofr[address] [place], [place] [address]Dr. Shahbaz Rogel Platelet mean volume (Bld) [Entitic vol] 10.0 fL Normal 9.5-13.[address] [facility] Comment on above: Performed By: #### C BC ####[facility] Mxjvrtecbw[address] [place], [place] [address]Dr. Shahbaz Rogel PLT 165 103/ul Normal 150-[address] [facility] Comment on above: Performed By: #### C BC ####[facility] Nyhjnpkaee[address] [place], [place] [address]Dr. Shahbaz Rogel RBC 4.36 106/ul Normal 4.20-5.[address] [facility] Comment on above: Performed By: #### C BC ####[facility] Glapibjsyt[address] [place], [place] [address]Dr. Shahbaz Rogel WBC 7.8 103/ul Normal 4.0-11.[address] [facility] Comment on above: Performed By: #### C BC ####[facility] Jktznvnqkx[address] [place], [place] [address]Dr. Shahbaz Rogel ER URINE PROFILEon 2 Bilirubin Ql (U) Negative Normal NEGATIVE The [facility] Comment on above: Performed By: #### E RUR ####[facility] Wkobstjlyp[address] [place], [place] [address]Dr. Shahbaz Rogel Clarity (U) CLEAR Normal CLEAR [facility] Comment on above: Performed By: #### E RUR ####[facility] Uhvklmtcck[address] [place], [place] [address]Dr. Shahbaz Rogel Color (U) LT. YELLOW Normal YELLOW The [facility] Comment on above: Performed By: #### E RUR ####[facility] Urbgzpwvmi[address] [place], [place] [address]Dr. Shahbaz Rogel ERUAHD A micrscopic examina tion will be performed if indicated. Normal The [facility] Comment on above: Performed By: #### E RUR ####[facility] Dpxwjxvfsy[address] [place], [place] [address]Dr. Shahbaz Rogel Glucose Ql (U) Negative Normal NEGATIVE [facility] Comment on above: Performed By: #### E RUR ####[facility] Xnldlzsxfx[address] [place], [place] [address]Dr. Shahbaz Rogel Hemoglobin Ql (U) Negative Normal NEGATIVE [facility] Comment on above: Performed By: #### E RUR ####[facility] Rdlfsmmfvw[address] [place], [place] [address]Dr. Lilajarrod Rogel Ketones Ql (U) Negative Normal NEGATIVE [facility] Comment on above: Performed By: #### E RUR ####[facility] Whjpksitlt[address] [place], [place] [address]Dr. Shahbaz Rogel LEUKOCYTES Negative Normal NEGATIVE The [facility] Comment on above: Performed By: #### E RUR ####[facility] Nuxagaoarv[address] [place], [place] [address]Dr. Lilajarrod Rogel Nitrite Ql (U) Negative Normal NEGATIVE [facility] Comment on above: Performed By: #### E RUR ####[facility] Rgdktyhfek[address] [place], [place] [address]Dr. Lilajarrod Rogel pH (U) 6.0 [pH] Normal 5-9 [facility] Comment on above: Performed By: #### E RUR ####[facility] Ckzcpnlovq4933 [place] [address]Dr. Shahbaz Rogel SPEC GRAVITY 1.020 Normal 1.005-<=1. 025 [facility] Comment on above: Performed By: #### E RUR ####[facility] Awjcfzrxye7982 [place] [address]Dr. Shahbaz Rogel UA PROTEIN Negative Normal NEGATIVE/ TRACE [facility] Comment on above: Performed By: #### E RUR ####[facility] Fbslhswdtn[address] [place] [address]Dr. Shahbaz Rogel UR MICRO IND NOT INDICATED Normal [facility] Comment on above: Performed By: #### E RUR ####[facility] Qpaollklgp2352 [place] [address]Dr. Shahbaz Rogel Urobilinogen Qn (U) 0.2 {Melida'U}/dL Normal 0.2 - 1. 0 [facility] Comment on above: Performed By: #### E RUR ####[facility] Uzfzjksype[address] [place], [place] [address]Dr. Shahbaz Rogel POINT OF CARE GLUCOSEon 01-01 Glucose [Mass/Vol] 151 mg/dL Critically high 74-106 [facility] Comment on above: Performed By: #### P OCGLUC ####[facility] Vleoldbpbw[address] [place], [place] [address]Dr. Shahbaz Rogel Glucose [Mass/Vol] 248 mg/dL Critically high 74-106 [facility] Comment on above: Performed By: #### P OCGLUC ####[facility] Dploxjphtv[address] [place], [place] [address]Dr. Shahbaz Rogel PROF 14(COMP METB)on 022 Albumin [Mass/Vol] 2.8 g/dL Critically low 3.4-5.0 [facility] Comment on above: Performed By: #### C MP ####[facility] Ygpfmutpgf[address] [place], [place] [address]Dr. Shahbaz Rogel Albumin/Globulin [Mass ratio] 0.9 {ratio} Normal [facility] Comment on above: Performed By: #### C MP ####[facility] Uawnltuvta9680 [place] [address]Dr. Shahbaz Rogel ALP [Catalytic activity/Vol] 90 U/L Normal 46-116 [facility] Comment on above: Performed By: #### C MP ####[facility] Kmnlcnvale9832 [place] [address]Dr. Shahbaz Juan F ALT [Catalytic activity/Vol] 20 U/L Normal 14-59 [facility] Comment on above: Performed By: #### C MP ####[facility] Emcxqeonzu[address] [place], [place] [address]Dr. Shahbaz Rogel Anion gap [Moles/Vol] 8.9 mmol/L Normal [facility] Comment on above: Performed By: #### C MP ####[facility] Cduxxdoxhi8[address] [place], [place] [address]Dr. Shahbaz Juan F AST [Catalytic activity/Vol] 14 U/L Critically low 15-37 [facility] Comment on above: Performed By: #### C MP ####[facility] Opwwntaovj97[address] [place], [place] [address]Dr. Lilajarrod Juan F Bilirubin [Mass/Vol] 0.1 mg/dL Critically low 0.2-1.3 [facility] Comment on above: Performed By: #### C MP ####[facility] Zsdvbnwvzi[address] [place], [place] [address]Dr. Shahbaz Rogel Calcium [Mass/Vol] 8.2 mg/dL Critically low 8.5-10.1 [facility] Comment on above: Performed By: #### C MP ####[facility] [address]ffssygloq[address] [place], [place] [address]Dr. Shahbaz Rogel Chloride [Moles/Vol] 110 mmol/L Critically high 98-107 [facility] Comment on above: Performed By: #### C MP ####[facility] Usywtnhwmu[address] [place], [place] [address]Dr. Shahbaz Rogel CO2 [Moles/Vol] 28.0 mmol/L Normal 22.0-30.0 [facility] Comment on above: Performed By: #### C MP ####[facility] Ekhrywubmh0068 [place] [address]Dr. Shahbaz Rogel Creatinine [Mass/Vol] 0.78 mg/dL Normal 0.52-1.04 [facility] Comment on above: Performed By: #### C MP ####[facility] Ydfikcoubx6682 [place] [address]Dr. Shahbaz Rogel EGFR-AF [place]IZ[place] >60 Normal >=60 [facility] Comment on above: Performed By: #### C MP ####[facility] Biypktgmqt3982 [place] [address]Dr. Shahbaz Rogel EGFR-NON AF CITIZEN OF [place] >60 Normal >=60 [facility] Comment on above: Performed By: #### C MP ####[facility] Oogyrxzbco85[address] [place], [place] [address]Dr. Shahbaz Juan F Globulin (S) [Mass/Vol] 3.1 g/dL Normal [facility] Comment on above: Performed By: #### C MP ####[facility] Bujsgqsthl[address] [place], [place] [address]Dr. Shahbaz Rogel Glucose [Mass/Vol] 121 mg/dL Critically high 74-106 [facility] Comment on above: Performed By: #### C MP ####[facility] Gfchdxrcqn[address] [place], [place] [address]Dr. Shahbaz Rogel Potassium [Moles/Vol] 3.9 mmol/L Normal 3.4-5.0 [facility] Comment on above: Performed By: #### C MP ####[facility] Hiicmjevfl7[address] [place], [place] [address]Dr. Shahbaz Rogel Protein [Mass/Vol] 5.9 g/dL Critically low 6.1-8.2 Th [facility] Comment on above: Performed By: #### C MP ####[facility] [address]kysxlzsm[address] [place], [place] [address]Dr. Shahbaz Rogel Sodium [Moles/Vol] 143 mmol/L Normal 137-145 [facility] Comment on above: Performed By: #### C MP ####[facility] Yhzmjwmixo[address] [place], [place] [address]Dr. Shahbaz Rogel Urea nitrogen [Mass/Vol] 26.0 mg/dL Critically high 7.0-18.[address] [facility] Comment on above: Performed By: #### C MP ####[facility] [address]ixmubolc[address] [place], [place] [address]Dr. Shahbaz Juan F Urea nitrogen/Creatinine [Mass ratio] 33.3 mg/mg Normal [facility] Comment on above: Performed By: #### C MP ####[facility] Qdnkyhdocj[address] [place], [place] [address]Dr. Shahbaz Juan F YTILP-1-DQFMZEXPAWCdz 2021 Hmgso-3-Olazbgsjhft, Serum 154 mg/dL Normal 101-[address] [facility] Comment on above: Performed By: #### A LPHA-1 ####[facility] Aawtbfolhw[address] [place], [place] [address]Dr. Shahbaz Juan F CBC AUTO DIFFon 01-20-2022 BASO # 0.0 103/ul Normal 0.0-0.[address] [facility] Comment on above: Performed By: #### C BC ####[facility] Kbshayszik[address] [place], [place] [address]Dr. Shahbaz Juan F Basophils/100 WBC (Bld) 0.0 % Critically low 0.2-2.[address] [facility] Comment on above: Performed By: #### C BC ####[facility] Itrjgzhebx[address] [place], [place] [address]Dr. Shahbaz Rogel EO # 0.0 103/ul Normal 0.0-0.[address] [facility] Comment on above: Performed By: #### C BC ####[facility] Bnbrbqhasx[address] [place], [place] [address]Dr. Lilajarrod Rogel Eosinophils/100 WBC (Bld) 0.0 % Critically low 0.9-7.[address] [facility] Comment on above: Performed By: #### C BC ####[facility] Yzykmgqqju39[address] [place], [place] [address]Dr. Shahbaz Roegl Erythrocyte distribution width (RBC) [Ratio] 13.7 % Normal 11.0-15.0 [facility] Comment on above: Performed By: #### C BC ####[facility] [address]nefdutnbb[address] [place], [place] [address]Dr. Shahbaz Rogel Hematocrit (Bld) [Volume fraction] 41.2 % Normal 36.0-48.0 [facility] Comment on above: Performed By: #### C BC ####[facility] Wdaaizbtwe[address] [place], [place] [address]Dr. Shahbaz Rogle Hemoglobin (Bld) [Mass/Vol] 12.8 g/dL Normal 12.0-16.0 [facility] Comment on above: Performed By: #### C BC ####[facility] Eysojqtres[address] [place], [place] [address]Dr. Shahbaz Rogel IG # 0.10 10e3/ul Critically high 0.00-0.03 [facility] Comment on above: Performed By: #### C BC ####[facility] Ejxkohxmpb[address] [place], [place] [address]Dr. Shahbaz Rogel IG % 0.5 % Normal 0.0-0.5 [facility] Comment on above: Performed By: #### C BC ####[facility] Xymagglisq[address] [place], [place] [address]Dr. Shahbaz Rogel LYMPH # 0.7 103/ul Critically low 1.2-3.8 [facility] Comment on above: Performed By: #### C BC ####[facility] Sxkchahogn[address] [place], [place] [address]Dr. Shahbaz Rogel Lymphocytes/100 WBC (Bld) 6.2 % Critically low 20.5-60.[address] [facility] Comment on above: Result Comment: dif. not rqd. same as 01/18/22 Performed By: #### C BC ####[facility] Fephqxfelc[address] [place], [place] [address]Dr. Shahbaz Rogel MANUAL DIFF REQ NO Normal [facility] Comment on above: Performed By: #### C BC ####[facility] [address]jlnomeae[address] [place], [place] [address]Dr. Shahbaz Rogel MCH (RBC) [Entitic mass] 27.2 pg Normal 26.7-34.[address] [facility] Comment on above: Performed By: #### C BC ####[facility] [address] [place] [address]Dr. Shahbaz Rogel MCHC (RBC) [Mass/Vol] 31.1 g/dL Normal 29.9-35.[address] [facility] Comment on above: Performed By: #### C BC ####[facility] [address]yemdo[address] [place] [address]Dr. Shahbaz Rogel MCV (RBC) [Entitic vol] 87.5 fL Normal 81.0-99.[address] [facility] Comment on above: Performed By: #### C BC ####[facility] Jwpjataegd[address] [place] [address]Dr. Shahbaz Juan F MONO # 0.2 103/ul Critically low 0.3-0.[address] [facility] Comment on above: Performed By: #### C BC ####[facility] Ccskcsxqtu[address] [place], [place] [address]Dr. Shahbaz Juan F Monocytes/100 WBC (Bld) 1.7 % Normal 1.7-12.[address] [facility] Comment on above: Performed By: #### C BC ####[facility] Jgffjgilog[address] [place] [address]Dr. Shahbaz Rogel NEUT # 9.8 103/ul Critically high 1.4-6.[address] [facility] Comment on above: Performed By: #### C BC ####[facility] Cncbojmbpk[address] [place] [address]Dr. Shahbaz Juan F Neutrophils/100 WBC (Bld) 91.6 % Critically high 43.0-75.[address] [facility] Comment on above: Performed By: #### C BC ####[facility] Gzytmuoiyy[address] [place] [address]Dr. Shahbaz Juan F Platelet mean volume (Bld) [Entitic vol] 10.0 fL Normal 9.5-13.[address] [facility] Comment on above: Performed By: #### C BC ####[facility] [address]wk[address] [place] [id number]. Shahbaz Rogel PLT 198 103/ul Normal 150-450 [facility] Comment on above: Performed By: #### C BC ####[facility] Tqyujkapdy[address] [place] [address]Dr. Shahbaz Rogel RBC 4.71 106/ul Normal 4.20-5.40 [facility] Comment on above: Performed By: #### C BC ####[facility] Ljrujzedam[address] [place] [address]Dr. Shahbaz Rogel WBC 10.7 103/ul Normal 4.0-11.0 [facility] Comment on above: Performed By: #### C BC ####[facility] Kykawjfyke[address] [place] [address]Dr. Shahbaz Rogel POINT OF CARE GLUCOSEon 01-01 Glucose [Mass/Vol] 157 mg/dL Critically high 74-106 [facility] Comment on above: Performed By: #### P OCGLUC ####[facility] Nqxmdkqyhc[address] [place] [address]Dr. Shahbaz Rogel Glucose [Mass/Vol] 225 mg/dL Critically high 74-106 [facility] Comment on above: Performed By: #### P OCGLUC ####[facility] Njjvtgoktq[address] [place] [address]Dr. Shahbaz Rogel Glucose [Mass/Vol] 185 mg/dL Critically high 74-106 [facility] Comment on above: Performed By: #### P OCGLUC ####[facility] Ugbgzrrgxo12[address] [place] [address]Dr. Shahbaz Rogel Glucose [Mass/Vol] 134 mg/dL Critically high 74-106 [facility] Comment on above: Performed By: #### P OCGLUC ####[facility] Aquhtvarrq[address] [place], [place] [address]Dr. Shahbaz Juan F PROF 14(COMP METB)on 022 Albumin [Mass/Vol] 3.0 g/dL Critically low 3.4-5.0 [facility] Comment on above: Performed By: #### C MP ####[facility] Xlopboedao[address] [place] [address]Dr. Shahbaz Juan F Albumin/Globulin [Mass ratio] 0.9 {ratio} Normal [facility] Comment on above: Performed By: #### C MP ####[facility] Cjaqqjtfzh[address] [place] [phone]. Shahbaz Rogel ALP [Catalytic activity/Vol] 81 U/L Normal 46-[address] [facility] Comment on above: Performed By: #### C MP ####[facility] Uaounptlks[address] [place] [address]Dr. Shahbaz Juan F ALT [Catalytic activity/Vol] 14 U/L Normal 14-59 [facility] Comment on above: Performed By: #### C MP ####[facility] Fsagundlhi[address] [place], [place] [address]Dr. Shahbaz Rogel Anion gap [Moles/Vol] 13.1 mmol/L Normal [facility] Comment on above: Performed By: #### C MP ####[facility] Cfoxgifayo[address] [place], [place] [address]Dr. Shahbaz Juan F AST [Catalytic activity/Vol] 20 U/L Normal 15-37 [facility] Comment on above: Performed By: #### C MP ####[facility] Keikdmhzhn[address] [place], [place] [address]Dr. Shahbaz Rogel Bilirubin [Mass/Vol] 0.3 mg/dL Normal 0.2-1.[address] [facility] Comment on above: Performed By: #### C MP ####[facility] [address]qvzrvpzb[address] [place], [place] [address]Dr. Shahbaz Rogel Calcium [Mass/Vol] 8.5 mg/dL Normal 8.5-10.[address] [facility] Comment on above: Performed By: #### C MP ####[facility] Ysotnkvvcw[address] [place], [place] [address]Dr. Shahbaz Rogel Chloride [Moles/Vol] 107 mmol/L Normal 98-[address] [facility] Comment on above: Performed By: #### C MP ####[facility] Eypaywwmqn75[address] [place] [address]Dr. Shahbaz Juan F CO2 [Moles/Vol] 24.0 mmol/L Normal 22.0-30.[address] [facility] Comment on above: Performed By: #### C MP ####[facility] Mlvrwavjzp69[address] [place] [address]Dr. Lilajarrod Rogel Creatinine [Mass/Vol] 1.00 mg/dL Normal 0.52-1.[address] [facility] Comment on above: Performed By: #### C MP ####[facility] Uljwigawkc[address] [place], [place] [address]Dr. Shahbaz Juan F EGFR-AF CITIZEN [place] >60 Normal >=60 [facility] Comment on above: Performed By: #### C MP ####[facility] Trawjnyfhx[address] [place], [place] [address]Dr. Shahbaz Rogel EGFR-NON AF CITIZEN OF [place] 57 mL/min/1.73m2 Critically low >=[address] [facility] Comment on above: Performed By: #### C MP ####[facility] Igbqthdado[address] [place], [place] [address]Dr. Lilajarrod Rogel Globulin (S) [Mass/Vol] 3.4 g/dL Normal [facility] Comment on above: Performed By: #### C MP ####[facility] Tstrtxokjn[address] [place], [place] [address]Dr. Shahbaz Rogel Glucose [Mass/Vol] 153 mg/dL Critically high 74-106 [facility] Comment on above: Performed By: #### C MP ####[facility] Oozdtzpsgf[address] [place], [place] [address]Dr. iLlajarrod Rogel Potassium [Moles/Vol] 4.1 mmol/L Normal 3.4-5.[address] [facility] Comment on above: Performed By: #### C MP ####[facility] Pwonpauojf[address] [place], [place] [address]Dr. Shahbaz Rogel Protein [Mass/Vol] 6.4 g/dL Normal 6.1-8.[address] [facility] Comment on above: Performed By: #### C MP ####[facility] Wftzclsztd[address] [place], [place] [address]Dr. Shahbaz Rogel Sodium [Moles/Vol] 140 mmol/L Normal 137-[address] [facility] Comment on above: Performed By: #### C MP ####[facility] Ggfviqtyjg[address] [place] [address]Dr. Shahbaz Rogel Urea nitrogen [Mass/Vol] 26.0 mg/dL Critically high 7.0-18.[address] [facility] Comment on above: Performed By: #### C MP ####[facility] Jynmwkazlo[address] [place], [place] [address]Dr. Shahbaz Rogel Urea nitrogen/Creatinine [Mass ratio] 26.5 mg/mg Normal [facility] Comment on above: Performed By: #### C MP ####[facility] Ljluihrnyp[address] [place], [place] [address]Dr. Shahbaz Rogel BNPon 01-19-2022 Natriuretic peptide B (Bld) [Mass/Vol] 117.0 pg/mL Normal <=900.[address] [facility] Comment on above: Performed By: #### B [employer], CMP ####[facility] Wfjcrmzakj[address] [place], [place] [address]Dr. Shahbaz Rogel CBC AUTO DIFFon 01-19-2022 BASO # 0.0 103/ul Normal 0.0-0.[address] [facility] Comment on above: Performed By: #### C BC ####[facility] Uyrigpapuh[address] [place], [place] [address]Dr. Shahbaz Rogel Basophils/100 WBC (Bld) 0.0 % Critically low 0.2-2.[address] [facility] Comment on above: Performed By: #### C BC ####[facility] Mviwdtgucn[address] [place], [place] [address]Dr. Shahbaz Rogel EO # 0.0 103/ul Normal 0.0-0.[address] [facility] Comment on above: Performed By: #### C BC ####[facility] Cdifmaomvd[address] [place], [place] [address]Dr. Shahbaz Rogel Eosinophils/100 WBC (Bld) 0.0 % Critically low 0.9-7.[address] [facility] Comment on above: Performed By: #### C BC ####[facility] Ithlpotbww[address] [place], [place] [address]Dr. Shahbaz Rogel Erythrocyte distribution width (RBC) [Ratio] 13.4 % Normal 11.0-15.0 [facility] Comment on above: Performed By: #### C BC ####[facility] Dtcnyfrwcw[address] [place], [place] [address]Dr. Shahbaz Rogel Hematocrit (Bld) [Volume fraction] 46.3 % Normal 36.0-48.0 [facility] Comment on above: Performed By: #### C BC ####[facility] Mlxgxfyrbj[address] [place], [place] [address]Dr. Shahbaz Rogel Hemoglobin (Bld) [Mass/Vol] 14.3 g/dL Normal 12.0-16.0 [facility] Comment on above: Performed By: #### C BC ####[facility] Ikiioxjqwq[address] [place], [place] [address]Dr. Shahbaz Rogel IG # 0.00 10e3/ul Normal 0.00-0.03 [facility] Comment on above: Performed By: #### C BC ####[facility] Hvhtfedwuf[address] [place], [place] [address]Dr. Shahbaz Rogel IG % 0.0 % Normal 0.0-0.5 [facility] Comment on above: Performed By: #### C BC ####[facility] Fvvpoauytk[address] [place], [place] [address]Dr. Shahbaz Rogel LYMPH # 0.6 103/ul Critically low 1.2-3.[address] [facility] Comment on above: Performed By: #### C BC ####[facility] Fvcuopqrmc[address] [place], [place] [address]Dr. Shahbaz Rogel Lymphocytes/100 WBC (Bld) 14.2 % Critically low 20.5-60.[address] [facility] Comment on above: Performed By: #### C BC ####[facility] [address]iayvpoi[address] [place], [place] [address]Dr. Shahbaz Rogel MANUAL DIFF REQ NO Normal [facility] Comment on above: Performed By: #### C BC ####[facility] [address]qwivssmd7[address] [place] [phone]. Shahbaz Juan F MCH (RBC) [Entitic mass] 27.7 pg Normal 26.7-34.[address] [facility] Comment on above: Performed By: #### C BC ####[facility] Pxesjduksq12[address] [place] [phone]. Shahbaz Juan F MCHC (RBC) [Mass/Vol] 30.9 g/dL Normal 29.9-35.[address] [facility] Comment on above: Performed By: #### C BC ####[facility] Aaytfvdmkz59[address] [place] [address]Dr. Lilajarrod Rogel MCV (RBC) [Entitic vol] 89.6 fL Normal 81.0-99.[address] [facility] Comment on above: Performed By: #### C BC ####[facility] Kwvnddzcel[address] [place], [place] [address]Dr. Shahbaz Rogel MONO # 0.0 103/ul Critically low 0.3-0.[address] [facility] Comment on above: Performed By: #### C BC ####[facility] Uhatszaybz[address] [place], [place] [address]Dr. Shahbaz Rogel Monocytes/100 WBC (Bld) 1.0 % Critically low 1.7-12.[address] [facility] Comment on above: Performed By: #### C BC ####[facility] Pdpyzkyytb[address] [place], [place] [address]Dr. Shahbaz Rogel NEUT # 3.5 103/ul Normal 1.4-6.[address] [facility] Comment on above: Performed By: #### C BC ####[facility] Ewpxpiqymu[address] [place], [place] [address]Dr. Shahbaz Rogel Neutrophils/100 WBC (Bld) 84.8 % Critically high 43.0-75.[address] [facility] Comment on above: Performed By: #### C BC ####[facility] Ljrlzuthpa[address] [place], [place] [address]Dr. Shahbaz Rogel Platelet mean volume (Bld) [Entitic vol] 9.8 fL Normal 9.5-13.[address] [facility] Comment on above: Performed By: #### C BC ####[facility] Pbuhgfvcnx4839 [place] [address]Dr. Shahbaz Rogel PLT 185 103/ul Normal 150-450 [facility] Comment on above: Performed By: #### C BC ####[facility] Qwjxntvalq6392 [place] [phone]. Shahbaz Rogel RBC 5.17 106/ul Normal 4.20-5.40 [facility] Comment on above: Performed By: #### C BC ####[facility] Xkfuhpmutv40[address] [place] [address]Dr. Shahbaz Rogel WBC 4.2 103/ul Normal 4.0-11.0 [facility] Comment on above: Performed By: #### C BC ####[facility] Xlexarmkwu[address] [place] [address]Dr. Lilajarrod Juan F LACTATE/LACTIC ACIDon 2021 Lactate [Moles/Vol] 1.7 mmol/L Normal 0.7-2.0 [facility] Comment on above: Performed By: #### L ACT ####[facility] Tcwcdgmgys[address] [place], [place] [address]Dr. Shahbaz Rogel POINT OF CARE GLUCOSEon 01-01 Glucose [Mass/Vol] 173 mg/dL Critically high 74-106 [facility] Comment on above: Performed By: #### P OCGLUC ####[facility] Nhlcglzljm66[address] [place] [address]Dr. Lilajarrod Juan F Glucose [Mass/Vol] 181 mg/dL Critically high 74-106 [facility] Comment on above: Performed By: #### P OCGLUC ####[facility] [address]pzuqqof[address] [place], [place] [address]Dr. Shahbaz Rogel Glucose [Mass/Vol] 154 mg/dL Critically high 74-106 [facility] Comment on above: Performed By: #### P OCGLUC ####[facility] Xirvuxjcmk[address] [place], [place] [address]Dr. Shahbaz Rogel PROF 14(COMP METB)on 04-20-2 022 Albumin [Mass/Vol] 3.5 g/dL Normal 3.4-5.0 [facility] Comment on above: Performed By: #### B [employer], CMP ####[facility] Hzpwlulkvg5306 [place] [address]Dr. Shahbaz Rogel Albumin/Globulin [Mass ratio] 0.9 {ratio} Normal [facility] Comment on above: Performed By: #### B [employer], CMP ####[facility] Zttaxjwpgl6[address] [place] [address]Dr. Shahbaz Rogel ALP [Catalytic activity/Vol] 107 U/L Normal 46-116 [facility] Comment on above: Performed By: #### B [employer], CMP ####[facility] Bhiqiodhya[address] [place], [place] [address]Dr. Shahbaz Rogel ALT [Catalytic activity/Vol] 18 U/L Normal 14-59 [facility] Comment on above: Performed By: #### B [employer], CMP ####[facility] Dgibufudzd94[address] [place], [place] [address]Dr. Shahbaz Rogel Anion gap [Moles/Vol] 14.1 mmol/L Normal [facility] Comment on above: Performed By: #### B [employer], CMP ####[facility] Mbkqqounsa[address] [place], [place] [address]Dr. Shahbaz Rogel AST [Catalytic activity/Vol] 19 U/L Normal 15-37 [facility] Comment on above: Performed By: #### B [employer], CMP ####[facility] Ahwgrjsejs[address] [place], [place] [address]Dr. Shahbaz Rogel Bilirubin [Mass/Vol] 0.5 mg/dL Normal 0.2-1.[address] [facility] Comment on above: Performed By: #### B [employer], CMP ####[facility] Leorhthrjm[address] [place], [place] [address]Dr. Shahbaz Rogel Calcium [Mass/Vol] 8.5 mg/dL Normal 8.5-10.1 [facility] Comment on above: Performed By: #### B [employer], CMP ####[facility] Exzcddccfl[address] [place], [place] [address]Dr. Shahbaz Rogel Chloride [Moles/Vol] 103 mmol/L Normal 98-[address] [facility] Comment on above: Performed By: #### B [employer], CMP ####[facility] Osdwmdsrlj[address] [place], [place] [address]Dr. Shahbaz Rogel CO2 [Moles/Vol] 25.4 mmol/L Normal 22.0-30.0 [facility] Comment on above: Performed By: #### B [employer], CMP ####[facility] Qslrgjgliw[address] [place], [place] [address]Dr. Shahbaz Rogel Creatinine [Mass/Vol] 1.48 mg/dL Critically high 0.52-1.04 [facility] Comment on above: Performed By: #### B [employer], CMP ####[facility] Mzxmuohfql[address] [place], [place] [address]Dr. Shahbaz Rogel EGFR-AF [place]IZ[place] 44 mL/min/1.73m2 Critically low >=60 [facility] Comment on above: Performed By: #### B [employer], CMP ####[facility] Hwqxjwwyli[address] [place], [place] [address]Dr. Shahbaz Rogel EGFR-NON AF CITIZ[place] OF [place] 36 mL/min/1.73m2 Critically low >=[address] [facility] Comment on above: Performed By: #### B [employer], CMP ####[facility] Tvafnvcgdv[address] [place], [place] [address]Dr. Shahbaz Juan F Globulin (S) [Mass/Vol] 3.7 g/dL Normal [facility] Comment on above: Performed By: #### B [employer], CMP ####[facility] Sgtroyzvkd[address] [place], [place] [address]Dr. Shahbaz Juan F Glucose [Mass/Vol] 203 mg/dL Critically high 74-106 [facility] Comment on above: Performed By: #### B [employer], CMP ####[facility] Zvtbcjhnrp[address] [place], [place] [address]Dr. Shahbaz Rogel Potassium [Moles/Vol] 3.5 mmol/L Normal 3.4-5.0 [facility] Comment on above: Performed By: #### B [employer], CMP ####[facility] Enhacrqqab[address] [place], [place] [address]Dr. Shahbaz Rogel Protein [Mass/Vol] 7.2 g/dL Normal 6.1-8.[address] [facility] Comment on above: Performed By: #### B [employer], CMP ####[facility] U[address]zoszfsd[address] [place], [place] [address]Dr. Shahbaz Rogel Sodium [Moles/Vol] 139 mmol/L Normal 137-[address] [facility] Comment on above: Performed By: #### B [employer], CMP ####[facility] Tklrqbqven[address] [place], [place] [address]Dr. Shahbaz Juan F Urea nitrogen [Mass/Vol] 17.0 mg/dL Normal 7.0-18.[address] [facility] Comment on above: Performed By: #### B [employer], CMP ####[facility] Jnntqelkyr[address] [place], [place] [address]Dr. Shahbaz Rogel Urea nitrogen/Creatinine [Mass ratio] 11.5 mg/mg Normal [facility] Comment on above: Performed By: #### B [employer], CMP ####[facility] S[address]hhquwrej[address] [place], [place] [address]Dr. Shahbaz Juan F BNPon 01-18-2022 Natriuretic peptide B (Bld) [Mass/Vol] 55.0 pg/mL Normal <=900.[address] [facility] Comment on above: Performed By: #### C MP, BNP, HSTROPN ####[facility] [address]notkajqjd[address] [place], [place] [address]Dr. Lilajarrod Juan F CBC W MANUAL DIFFon 01-19-20 22 ATYPICAL LYMPH # 0.12 103/ul Normal [facility] Comment on above: Performed By: #### C BCMAN ####[facility] Tuyeojvxsx[address] [place], [place] [address]Dr. Shahbaz Rogel ATYPICAL LYMPH % 2 % Normal [facility] Comment on above: Performed By: #### C BCMAN ####[facility] Nvderisiou[address] [place], [place] [address]Dr. Shahbaz Rogel BAND # 0.0 103/ul Normal 0.0-0.[address] [facility] Comment on above: Performed By: #### C BCBRICE ####[facility] Ucksmbisoq[address] [place] [id number]. Shahbaz Rogel BAND % 0 % Normal 0-[address] [facility] Comment on above: Performed By: #### C BCBRICE ####[facility] Cslbgcddgs3[address] [place] [id number]. Yijarrod Rogel BASOM # 0.00 103/ul Normal 0.00-0.[address] [facility] Comment on above: Performed By: #### C BCBRICE ####[facility] Upsdsvvsuy[address] [place] [address]Dr. Shahbaz Rogel BASOM % 0.0 % Critically low 0.2-2.[address] [facility] Comment on above: Performed By: #### C CAIN ####[facility] [address]kjphw[address] [place], [place] [address]Dr. Yijarrod Rogel BLAST # Normal [facility] Comment on above: Performed By: #### C BCBRICE ####[facility] [address]ouwypgi[address] [place], [place] [address]Dr. Yijarrod Rogle BLAST % Normal [facility] Comment on above: Performed By: #### C CAIN ####[facility] Wjulofynyv[address] [place], [place] [address]Dr. Shahbaz Rogel CORRECTED WBC Normal 4.0-11.0 [facility] Comment on above: Performed By: #### C CAIN ####[facility] Wficssothk[address] [place], [place] [address]Dr. Yijarrod Rogel EOS # 0.25 103/ul Normal 0.00-0.[address] [facility] Comment on above: Performed By: #### C BCBRICE ####[facility] [address]rxrrfpazo[address] [place], [place] [address]Dr. Shahbaz Rogel EOS% 4.0 % Normal 0.9-7.[address] [facility] Comment on above: Performed By: #### C BCBRICE ####[facility] K[address] [place], [place] [address]Dr. Yilan Rogel HCT 46.8 % Normal 36.0-48.[address] [facility] Comment on above: Performed By: #### Cheri BARLOW ####[facility] Khsxnuwmex5227 [place], [place] [address]Qd. Shahbaz Rogel HGB 14.9 g/dl Normal 12.0-16.0 [facility] Comment on above: Performed By: #### Cheri BARLOW ####[facility] Bbmvnowklh4070 [place], [place] [address]Xz. Shahbaz Rogel LYMPHM # 0.68 103/ul Critically low 1.20-3.80 [facility] Comment on above: Performed By: #### Cheri BARLOW ####[facility] Ryiugudvsc74[address] [place] [id number]. Shahbaz Rogel LYMPHM% 11.0 % Critically low 20.5-60.0 [facility] Comment on above: Performed By: #### Cheri BARLOW ####[facility] Ujaksnqhai[address] [place] [id number]. Shahbaz Rogel MCH 27.6 pg Normal 26.7-34.0 [facility] Comment on above: Performed By: #### Cheri BARLOW ####[facility] Qkevrihpyn6943 [place] [id number]. Shahbaz Rogel MCHC 31.8 g/dl Normal 29.9-35.2 [facility] Comment on above: Performed By: #### Cheri BARLOW ####[facility] Azffgdcaou3815 [place] [id number]. Shahbaz Rogel MCV 86.8 fL Normal 81.0-99.[address] [facility] Comment on above: Performed By: #### Cheri BARLOW ####[facility] Pbksfpdktj5945 [place], [place] [address]Fp. Shahbaz Rogel METAMYELOCYTE # Normal [facility] Comment on above: Performed By: #### Cheri BARLOW ####[facility] Uunmiivgpd4931 [place] [phone]. Shahbaz Rogel METAMYELOCYTE % Normal The [facility] Comment on above: Performed By: #### Cheri BARLOW ####[facility] Esoggkuxbj4320 [place] [phone]. Shahbaz Rogel MONOM# 0.19 103/ul Critically low 0.30-0.80 [facility] Comment on above: Performed By: #### C CAIN ####[facility] Yhsxrtsoqa4174 [place] [id number]. Shahbaz Rogel MONOM% 3.0 % Normal 1.7-12.0 [facility] Comment on above: Performed By: #### C CAIN ####[facility] Mrixwczdyq5144 [place] [id number]. Shahbaz Rogel MPV 9.6 fL Normal 9.5-13.5 [facility] Comment on above: Performed By: #### C CAIN ####[facility] Ngqaiqnadi[address] [place], [place] [address]Dr. Shahbaz Rogel MYELOCYTE # Normal [facility] Comment on above: Performed By: #### C CAIN ####[facility] Ruuvzzafco[address] [place], [place] [address]Dr. Shahbaz Rogel MYELOCYTE % Normal [facility] Comment on above: Performed By: #### C CAIN ####[facility] [address]zby[address] [place], [place] [address]Dr. Shahbaz Rogel NRBC Normal The [facility] Comment on above: Performed By: #### C CAIN ####[facility] Gathpoxwrz[address] [place], [place] [address]Dr. Shahbaz Rogel PLT 203 103/ul Normal 150-[address] [facility] Comment on above: Performed By: #### C CAIN ####[facility] Gdaxmbitsb0170 [place] [phone]. Shahbaz Rogel RBC 5.39 106/ul Normal 4.20-5.[address] [facility] Comment on above: Performed By: #### C CAIN ####[facility] [address]lakr[address] [place], [place] [address]Dr. Shahbaz Rogel RDW 13.7 % Normal 11.0-15.[address] [facility] Comment on above: Performed By: #### C CAIN ####[facility] Wkvyeunabx[address] [place], [place] [address]Dr. Shahbaz Rogel SEG # 4.96 103/ul Normal 1.40-6.50 [facility] Comment on above: Performed By: #### C BCMAN ####[facility] Kshptaimwe6947 [place] [phone]. Shahbaz Rogel SEG % 80.0 % Critically high 43.0-75.0 [facility] Comment on above: Performed By: #### Cheri BCMAN ####[facility] Ozexzujdqo2677 [place] [phone]. Shahbaz Rogel WBC 6.2 103/ul Normal 4.0-11.0 [facility] Comment on above: Performed By: #### Cheri BUCHANANMAN ####[facility] Rwzwappxtb2603 [place] [phone] Rogel CULTURE BLOODon 01-18-2022 Microscopic examination of blood, culture Culture Observations: No growth at 5 days. Normal [facility] Comment on above: Performed By: #### B LDCX2 ####[facility] K[address] [place], [place] [id number]. Shahbaz Rogel Microscopic examination of blood, culture Culture Observations: No growth at 5 days Normal [facility] Comment on above: Performed By: #### B LDCX1 ####[facility] [address]lche[address]fes[address] [place], [place] [id number]. Shahbaz Rogel Covid-19 PCR (CVDTB)on 12-31 SARS-CoV-2 (COVID-19) RNA PAVAN+probe Ql (Unsp spec) Not detected Normal NOT DETECTED The [facility] Comment on above: Result Comment: This test is not yet approved or cleared by the [place] FDA. When there are no FDA-approved or cleared tests available, and other criteria are met, FDA can make tests available under an emergency access mechanism called an Emergency Use Authorization (EUA). The EUA for this test is supported by the [place] of Health and Human Service's (HHS's) declaration [...] with SARS-CoV-2. Performed By: #### C VDTBH ####[facility] Eqbgdxuhou[address] [place], [place] [address]Dr. [facility] D-DIMERon 01-18-2022 D-DIMER 0.29 mg/L FEU Normal 0.19-0.50 [facility] Comment on above: Performed By: #### D DIM ####[facility] Bghtjzzncc[address] [place], [place] [address]Dr. [facility] D-DIMER COMMENTS SEE BELOW Normal [facility] Comment on above: Result Comment: Incr eases [...] generalized hospitalization. Performed By: #### D DIM ####[facility] Mjmuojnemj[address] [place], [place] [address]Dr. [facility] INFLUENZA A AND B AGon 01-18 INFLUANEGH SEE BELOW Normal [facility] Comment on above: Result Comment: Nega tive for Flu A protein angiten. Infection due to Flu A cannot be ruled out. Flu A angiten in the sample may be below the detection limit of the test. Performed By: #### I NFLUAB ####[facility] Lmrsjpaadt[address] [place], [place] [address]Dr. [facility] INFLUBNEGH SEE BELOW Normal [facility] Comment on above: Result Comment: Nega tive for Flu B protein antigen. Infection due to Flu B cannot be ruled out. Flu B antigen in the sample may be below the detection limit of the test. Performed By: #### I NFLUAB ####[facility] Ofotbfirul[address]24 [place] [address]Dr. Shahbaz Rogel INFLUENZA A AG Negative Normal NEGATIVE SEE COMMENT The [facility] Comment on above: Performed By: #### I NFLUAB ####[facility] Rcvfdeiwqn7808 [place] [address]Dr. Shahbaz Rogel INFLUENZA B AG Negative Normal NEGATIVE SEE COMMENT The [facility] Comment on above: Performed By: #### I NFLUAB ####[facility] Ixqkiddeuc[address] [place], [place] [address]Dr. Shahbaz Rogel INTERNAL CONTROLS Within Normal Limits Normal Wi thin Normal Limits The [facility] Comment on above: Performed By: #### I NFLUAB ####[facility] Bgepuiqpxa[address] [place], [place] [address]Dr. Shahbaz Rogel LACTATE/LACTIC ACIDon 2021 Lactate [Moles/Vol] 1.0 mmol/L Normal 0.7-2.0 [facility] Comment on above: Performed By: #### L ACT ####[facility] Sawsfuzpdg[address] [place], [place] [address]Dr. Shahbaz Rogel PROF 14(COMP METB)on 022 Albumin [Mass/Vol] 3.8 g/dL Normal 3.4-5.[address] [facility] Comment on above: Performed By: #### C MP, BNP, HSTROPN ####[facility] Yv[address] [place], [place] [address]Dr. Shahbaz Rogel Albumin/Globulin [Mass ratio] 1.0 {ratio} Normal The [facility] Comment on above: Performed By: #### C MP, BNP, HSTROPN ####[facility] Rhkinbygty[address] [place], [place] [address]Dr. Shahbaz Rogel ALP [Catalytic activity/Vol] 116 U/L Normal 46-[address] [facility] Comment on above: Performed By: #### C MP, BNP, HSTROPN ####[facility] Bxtndfoxol[address] [place], [place] [address]Dr. Shahbaz Rogel ALT [Catalytic activity/Vol] 16 U/L Normal 14-[address] [facility] Comment on above: Performed By: #### C MP, BNP, HSTROPN ####[facility] Mtcafqypkf4812 [place] [address]Dr. Shahbaz Rogel Anion gap [Moles/Vol] 9.4 mmol/L Normal [facility] Comment on above: Performed By: #### C MP, BNP, HSTROPN ####[facility] Mstdswlfws[address]14 [place] [address]Dr. Shahbaz Rogel AST [Catalytic activity/Vol] 19 U/L Normal 15-[address] [facility] Comment on above: Performed By: #### C MP, BNP, HSTROPN ####[facility] Luxaabvjmb[address] [place], [place] [address]Dr. Shahbaz Rogel Bilirubin [Mass/Vol] 0.5 mg/dL Normal 0.2-1.[address] [facility] Comment on above: Performed By: #### C MP, BNP, HSTROPN ####[facility] Sxxyibczyq[address] [place], [place] [address]Dr. Shahbaz Rogel Calcium [Mass/Vol] 8.9 mg/dL Normal 8.5-10.[address] [facility] Comment on above: Performed By: #### C MP, BNP, HSTROPN ####[facility] Qlqxuyylrn6993 [place] [address]Dr. Shahbaz Rogel Chloride [Moles/Vol] 104 mmol/L Normal 98-[address] [facility] Comment on above: Performed By: #### C MP, BNP, HSTROPN ####[facility] Zrlgygauyx[address] [place], [place] [address]Dr. Shahbaz Rogel CO2 [Moles/Vol] 27.2 mmol/L Normal 22.0-30.[address] [facility] Comment on above: Performed By: #### C MP, BNP, HSTROPN ####[facility] Argsxyqdbt1567 [place] [address]Dr. Shahbaz Rogel Creatinine [Mass/Vol] 0.99 mg/dL Normal 0.52-1.[address] [facility] Comment on above: Performed By: #### C MP, BNP, HSTROPN ####[facility] Pohzuuolem[address] [place] [address]Dr. Shahbaz Rogel EGFR-AF [place]IZ[place] >60 Normal >=[address] [facility] Comment on above: Performed By: #### C MP, BNP, HSTROPN ####[facility] Kgrikcbshs4199 [place] [address]Dr. Shahbaz Rogel EGFR-NON AF CITIZEN OF [place] 58 mL/min/1.73m2 Critically low >=[address] [facility] Comment on above: Performed By: #### C MP, BNP, HSTROPN ####[facility] Kebozwioge7918 [place] [address]Dr. Shahbaz Rogel Globulin (S) [Mass/Vol] 3.8 g/dL Normal The [facility] Comment on above: Performed By: #### C MP, BNP, HSTROPN ####[facility] Kalrmpscpi[address] [place], [place] [address]Dr. Shahbaz Rogel Glucose [Mass/Vol] 104 mg/dL Normal 74-[address] [facility] Comment on above: Performed By: #### C MP, BNP, HSTROPN ####[facility] [address]ckxmjsp[address] [place], [place] [address]Dr. Shahbaz Rogel Potassium [Moles/Vol] 3.6 mmol/L Normal 3.4-5.[address] [facility] Comment on above: Performed By: #### C MP, BNP, HSTROPN ####[facility] [address]axvighls[address] [place], [place] [address]Dr. Shahbaz Rogel Protein [Mass/Vol] 7.6 g/dL Normal 6.1-8.[address] [facility] Comment on above: Performed By: #### C MP, BNP, HSTROPN ####[facility] [address]veodmtz[address] [place], [place] [address]Dr. Shahbaz Rogel Sodium [Moles/Vol] 137 mmol/L Normal 137-[address] [facility] Comment on above: Performed By: #### C MP, BNP, HSTROPN ####[facility] [address] [place] [address]Id. Shahbaz Rogel Urea nitrogen [Mass/Vol] 9.0 mg/dL Normal 7.0-18.[address] [facility] Comment on above: Performed By: #### C MP, BNP, HSTROPN ####[facility] Edib[address]wjnpr[address] [place], [place] [address]Ed. Shahbaz Rogel Urea nitrogen/Creatinine [Mass ratio] 9.1 mg/mg Normal The [facility] Comment on above: Performed By: #### C MP, BNP, HSTROPN ####[facility] Qtfstqvpjl5906 [place], [place] [address]Vr. Shahbaz Rogel TROPONIN, HIGH SENSITIVITYon 01-18-2022 HSTROP 6.4 pg/mL Normal 4.0-35.[address] [facility] Comment on above: Result Comment: CUT- OFF POINTS HAVE BEEN ESTABLISHED BASED ON THE FOURTH UNIVERSAL DEFINITIONS OF MYOCARDIALINFARCTION. THE UPPER REFERENCE LIMIT (URL) OF TROPONIN, DEFINED THE 99TH PERCENTILE OFcTnI DISTRIBUTION IN A REFERENCE POPULATION, HAS BEEN CONFIRMED THE DECISION THRESHOLDFOR SD DIAGNOSIS. Performed By: #### C MP, BNP, HSTROPN ####[facility] Ubclqnepso7720 [place] [id number]. Shahbaz Rogel XR CHEST 2 Von 01-18-2022 XR CHEST 2 V Normal [facility] URINALYSIS REFLEXon 04-04-20 20 Appearance (U) CLEAR Normal CLEAR [facility] Comment on above: Order Comment: No: D o not add to previous draw Performed By: #### 1 0070, 57216, 45070, 65400, 28751, 59154 #### [facility] [address] [place] [address], [place] Bilirubin [Mass/Vol] Negative Normal NEGATIVE [facility] Comment on above: Order Comment: No: D o not add to previous draw Performed By: #### 1 0070, 31842, 30736, 16315, 29470, 87764 #### [facility] [address] [place] [address], [place] BLOOD Negative Normal NEGATIVE [facility] Comment on above: Order Comment: No: D o not add to previous draw Performed By: #### 1 0070, 62141, 34823, 35334, 10042, 53281 #### [facility] [address] [place] [address], [place] Color (U) YELLOW Normal YELLOW [facility] Comment on above: Order Comment: No: D o not add to previous draw Performed By: #### 1 0070, 69933, 95868, 54292, 40947, 21408 #### [facility] [address] [place] [address], [place] Glucose [Mass/Vol] Negative Normal NEGATIVE [facility] Comment on above: Order Comment: No: D o not add to previous draw Performed By: #### 1 0070, 19719, 17377, 72672, 15231, 11297 #### [facility] [address] [place] [address], [place] KETONE Negative Normal NEGATIVE [facility] Comment on above: Order Comment: No: D o not add to previous draw Performed By: #### 1 0070, 97063, 29326, 63245, 54337, 33718 #### [facility] [address] [place] [address], [place] LEUK ELIU Negative Normal NEGATIVE [facility] Comment on above: Order Comment: No: D o not add to previous draw Performed By: #### 1 0070, 15413, 61770, 35847, 21586, 56509 #### [facility] [address] [place] [address], [place] MICRO NOT DONE Normal [facility] Comment on above: Order Comment: No: D o not add to previous draw Result Comment: Micr oscopics not performed on urines with negative chemical reactions unless requested in original order Performed By: #### 1 0070, 26756, 83595, 55777, 43960, 55969 #### [facility] [address] [place] [address], [place] Nitrite Ql (U) Negative Normal NEGATIVE [facility] Comment on above: Order Comment: No: D o not add to previous draw Performed By: #### 1 0070, 51013, 57881, 16029, 93901, 13543 #### [facility] [address] [place] [address], [facility] pH (Bld) 5.0 Normal 5.0-8.0 [facility] Comment on above: Order Comment: No: D o not add to previous draw Performed By: #### 1 0070, 27698, 91611, 91170, 13977, 29473 #### [facility] [address] [facility] [place] [address], [facility] Protein (U) [Mass/Vol] Negative Normal NEGATIVE [facility] Comment on above: Order Comment: No: D o not add to previous draw Performed By: #### 1 0070, 48033, 47535, 19346, 44849, 28110 #### [facility] [address] [facility] [place] [address], [facility] SPEC GRAV 1.012 Low 1.015-1.02 0 [facility] Comment on above: Order Comment: No: D o not add to previous draw Performed By: #### 1 0070, 05560, 06069, 95269, 06703, 17761 #### [facility] [address] [facility] [place] [address], [facility] BASIC METABOLIC PANELon 07-0 -2019 Calcium [Mass/Vol] 8.4 mg/dL Low 8.6-10.3 [facility] Comment on above: Order Comment: No: D o not add to previous draw Performed By: #### 1 0070, 66250, 36798, 39196, 32030, 94403 #### [facility] [address] [place] [address], [facility] Chloride [Moles/Vol] 101 mmol/L Normal 98-107 [facility] Comment on above: Order Comment: No: D o not add to previous draw Performed By: #### 1 0070, 82205, 65819, 11013, 11193, 24030 #### [facility] [address] [place] [address], [facility] CO2 [Moles/Vol] 29 mmol/L Normal 21-31 [facility] Comment on above: Order Comment: No: D o not add to previous draw Performed By: #### 1 0070, 41801, 72595, 19295, 22240, 76889 #### [facility] [address] [place] [address], [facility] Creatinine [Mass/Vol] 0.79 mg/dL Normal 0.60-1.20 [facility] Comment on above: Order Comment: No: D o not add to previous draw Performed By: #### 1 0070, 32430, 18482, 01462, 27211, 99283 #### [facility] [address] [place] [address], [place] GFR/1.73 sq M predicted among blacks MDRD (S/P/Bld) [Vol rate/Area] mL/min/{1.73_m2} Normal >60 [facility] Comment on above: Order Comment: No: D o not add to previous draw Performed By: #### 1 0070, 97614, 69926, 55646, 16665, 96976 #### [facility] [address] [place] [address], [place] GFR/1.73 sq M predicted among non-blacks MDRD (S/P/Bld) [Vol rate/Area] mL/min/{1.73_m2} Normal >60 [facility] Comment on above: Order Comment: No: D o not add to previous draw Performed By: #### 1 0070, 08761, 34532, 36154, 55412, 56428 #### [facility] [address] [place] [address], [place] Glucose [Mass/Vol] 91 mg/dL Normal 70-100 [facility] Comment on above: Order Comment: No: D o not add to previous draw Performed By: #### 1 0070, 40944, 93892, 00807, 79176, 39464 #### [facility] [address] [facility] [address], [facility] Potassium [Moles/Vol] 3.9 mmol/L Normal 3.5-5.1 [facility] Comment on above: Order Comment: No: D o not add to previous draw Performed By: #### 1 0070, 45079, 92314, 08974, 44196, 32923 #### [facility] [address] Sodium [Moles/Vol] 133 mmol/L Low 136-145 [facility] Comment on above: Order Comment: No: D o not add to previous draw Performed By: #### 1 0070, 49776, 63476, 17007, 82031, 51102 #### [facility] [address] Urea nitrogen [Mass/Vol] 10 mg/dL Normal 7-25 [facility] Comment on above: Order Comment: No: D o not add to previous draw Performed By: #### 1 0070, 58684, 40666, 44618, 14740, 92623 #### [facility] [address] [facility]. [address] CBC W/DIFFon 04-02-2020 ABS BASOPHILS 0.0 10*3/uL Normal 0.0-0.2 [facility] Comment on above: Order Comment: No: D o not add to previous draw Performed By: #### 1 0070, 04900, 42751, 44260, 13810, 66722 #### [facility] [address] [facility] [place] [address], [facility] ABS IMM GRANS 0.0 10*3/uL Normal 0.0-0.2 [facility] Comment on above: Order Comment: No: D o not add to previous draw Performed By: #### 1 0070, 20791, 53004, 60572, 09586, 29475 #### [facility] [address] [place] [address], [facility] ABS NEUTROPHILS 4.5 10*3/uL Normal 1.6-7.6 [facility] Comment on above: Order Comment: No: D o not add to previous draw Performed By: #### 1 0070, 14285, 23223, 08852, 67960, 64940 #### [facility] [address] [facility] [place] [address], [facility] Basophils/100 WBC (Bld) 0.2 % Normal 0.0-1.0 [facility] Comment on above: Order Comment: No: D o not add to previous draw Performed By: #### 1 0070, 78365, 35957, 87538, 35097, 96843 #### [facility] [address] [facility] [place] [address], [facility] Eosinophils (Bld) [#/Vol] 0.2 10*3/uL Normal 0.0-0.5 [facility] Comment on above: Order Comment: No: D o not add to previous draw Performed By: #### 1 0070, 06558, 36720, 05770, 44440, 45966 #### [facility] [address] [facility] [place] [address], [facility] Eosinophils/100 WBC (Bld) 3.6 % Normal 0.0-6.0 [facility] Comment on above: Order Comment: No: D o not add to previous draw Performed By: #### 1 0070, 47985, 14741, 99744, 28313, 85155 #### [facility] [address] [place] [address], [facility] Erythrocyte distribution width (RBC) [Ratio] 12.7 % Normal 11.5-15.0 [facility] Comment on above: Order Comment: No: D o not add to previous draw Performed By: #### 1 0070, 36524, 22468, 81243, 03120, 36516 #### [facility] [address] [facility] [place] [address], [facility] Hematocrit (Bld) [Volume fraction] 42.9 % Normal 36.0-45.0 [facility] – [place] Comment on above: Order Comment: No: D o not add to previous draw Performed By: #### 1 0070, 32705, 97739, 90732, 59079, 06531 #### [facility] [address] [facility] [address] Hemoglobin (Bld) [Mass/Vol] 13.5 g/dL Normal 12.0-15.0 [facility] [place] Comment on above: Order Comment: No: D o not add to previous draw Performed By: #### 1 0070, 46035, 24791, 94707, 15952, 04589 #### [facility] 3000 [facility]. [address] IMMATURE GRANS 0.3 % Normal 0.0-1.0 [facility] [place] Comment on above: Order Comment: No: D o not add to previous draw Performed By: #### 1 0070, 23280, 56881, 46699, 99530, 46128 #### [facility] [address] [facility] [place] [address], [facility] Lymphocytes (Bld) [#/Vol] 1.1 10*3/uL Low 1.2-4.0 [facility] [place] Comment on above: Order Comment: No: D o not add to previous draw Performed By: #### 1 0070, 71664, 77208, 26787, 32552, 65383 #### [facility] [address] [facility] [address], [facility] Lymphocytes/100 WBC (Bld) 18.0 % Low 20.0-45.0 [facility] [place] Comment on above: Order Comment: No: D o not add to previous draw Performed By: #### 1 0070, 32531, 80833, 35417, 76960, 68127 #### [facility] [address] [facility] [address] MCH (RBC) [Entitic mass] 27.4 pg Normal 27.0-33.0 [facility] [place] Comment on above: Order Comment: No: D o not add to previous draw Performed By: #### 1 0070, 88739, 15071, 55446, 34497, 28449 #### [facility] [address] [facility] MCHC (RBC) [Mass/Vol] 31.5 g/dL Low 32.0-35.0 [facility] [place] Comment on above: Order Comment: No: D o not add to previous draw Performed By: #### 1 0070, 80764, 98303, 71744, 82743, 87030 #### [facility] [address] MCV (RBC) [Entitic vol] 87.0 fL Normal 82.0-98.0 [facility] [place] Comment on above: Order Comment: No: D o not add to previous draw Performed By: #### 1 0070, 66185, 26511, 29175, 48561, 52972 #### [facility] [address] [place] [address], [facility] Monocytes (Bld) [#/Vol] 0.3 10*3/uL Normal 0.1-1.0 [facility] [place] Comment on above: Order Comment: No: D o not add to previous draw Performed By: #### 1 0070, 90297, 48168, 51750, 65830, 02768 #### [facility] [address] MONOS 5.5 % Normal 5.0-12.0 [facility] [place] Comment on above: Order Comment: No: D o not add to previous draw Performed By: #### 1 0070, 51833, 58295, 61972, 28796, 78671 #### [facility] [address] [place] [address], [facility] Neutrophils/100 WBC (Bld) 72.4 % High 40.0-72.0 [facility] [place] Comment on above: Order Comment: No: D o not add to previous draw Performed By: #### 1 0070, 33908, 74891, 77816, 44388, 86458 #### [facility] [address] [place] [address], [place] Nucleated RBC/100 WBC (Bld) [Ratio] 0 % Normal 0-0 [facility] [place] Comment on above: Order Comment: No: D o not add to previous draw Performed By: #### 1 0070, 57847, 20414, 79154, 14585, 32114 #### [facility] [address] [place] [address], [facility] PLAT CNT 264 10*3/uL Normal 150-400 [facility] [place] Comment on above: Order Comment: No: D o not add to previous draw Performed By: #### 1 0070, 96544, 27029, 53801, 05598, 28479 #### [facility] [address] [place] [id number], [facility] RBC (Bld) [#/Vol] 4.93 10*6/uL Normal 3.80-5.00 [facility] [place] Comment on above: Order Comment: No: D o not add to previous draw Performed By: #### 1 0070, 87132, 85548, 58758, 39985, 15611 #### [facility] [address] [place] [address], [place] WBC (Bld) [#/Vol] 6.17 10*3/uL Normal 4.00-10.60 [facility] [place] Comment on above: Order Comment: No: D o not add to previous draw Performed By: #### 1 0070, 03545, 16864, 32065, 37909, 50242 #### [facility] [address] [place] [address], [facility] MAGNESIUM BLOODon 04-02-2020 Magnesium [Mass/Vol] 2.0 mg/dL Normal 1.9-2.7 [facility] [place] Comment on above: Order Comment: No: D o not add to previous draw Performed By: #### 1 0070, 81021, 18007, 17979, 37781, 62133 #### [facility] [address] [place] [address], [facility] PHOSPHORUS BLOODon 0 Phosphate [Mass/Vol] 3.1 mg/dL Normal 2.5-5.0 [facility] [place] Comment on above: Order Comment: No: D o not add to previous draw Performed By: #### 1 0070, 62822, 82815, 96757, 95192, 97539 #### [facility] [address] POC GLUCOSE LABon 04-02-2020 Glucose [Mass/Vol] 134 mg/dL High 70-100 [facility] [place] Comment on above: Performed By: #### 1 0070, 31515, 64616, 20478, 35654, 78624 #### [facility] [address] [facility] [address] UFH HEPARIN ASSAYon 04-02-20 20 UNFRACTIONATED HEPARIN 0.91 IU/mL Critically high 0.30-0.7 0 [facility] [place] Comment on above: Result Comment: Violet roxaban and Apixaban will interfere with the anti Xa assay used to monitor UFH and LMWH. RESULTS CHECKED AND CALLED. ACCURATELY READ BACK BY LYNN POLANCO, COLLEEN @ 1697 Performed By: #### 1 0070, 96676, 31721, 73234, 05408, 16594 #### [facility] [address] [place] [address], [facility] ALBUMIN BLOODon 04-01-2020 Albumin [Mass/Vol] 3.0 g/dL Low 3.5-5.7 [facility] [place] Comment on above: Performed By: #### 1 0070, 26843, 82940, 98744, 62570, 68829 #### [facility] [address] [place] [address], [facility] BASIC METABOLIC PANELon 07-0 Calcium [Mass/Vol] 8.1 mg/dL Low 8.6-10.3 [facility] [place] Comment on above: Order Comment: No: D o not add to previous draw Performed By: #### 1 0070, 35909, 86604, 44326, 18090, 79791 #### [facility] [address] [place] [address], [facility] Chloride [Moles/Vol] 105 mmol/L Normal 98-107 [facility] [place] Comment on above: Order Comment: No: D o not add to previous draw Performed By: #### 1 0070, 79215, 36975, 10206, 98351, 77702 #### [facility] [address] [facility] [address], [facility] CO2 [Moles/Vol] 26 mmol/L Normal 21-31 [facility] [place] Comment on above: Order Comment: No: D o not add to previous draw Performed By: #### 1 0070, 67323, 47032, 90156, 21945, 65455 #### [facility] [address] [facility] [address], [facility] Creatinine [Mass/Vol] 0.65 mg/dL Normal 0.60-1.20 [facility] [place] Comment on above: Order Comment: No: D o not add to previous draw Performed By: #### 1 0070, 68619, 09328, 27726, 73367, 04018 #### [facility] [address] [place] [address], [facility] GFR/1.73 sq M predicted among blacks MDRD (S/P/Bld) [Vol rate/Area] mL/min/{1.73_m2} Normal >60 [facility] [place] Comment on above: Order Comment: No: D o not add to previous draw Performed By: #### 1 0070, 16614, 31827, 37192, 63869, 04610 #### [facility] [address] [place] [address], [facility] GFR/1.73 sq M predicted among non-blacks MDRD (S/P/Bld) [Vol rate/Area] mL/min/{1.73_m2} Normal >60 [facility] [place] Comment on above: Order Comment: No: D o not add to previous draw Performed By: #### 1 0070, 97234, 81505, 79610, 07879, 28649 #### [facility] [address] [place] [address], [place] Glucose [Mass/Vol] 87 mg/dL Normal 70-100 [facility] [place] Comment on above: Order Comment: No: D o not add to previous draw Performed By: #### 1 0070, 90695, 87230, 55514, 04383, 03939 #### [facility] [address] [place] [address], [place] Potassium [Moles/Vol] 4.3 mmol/L Normal 3.5-5.1 [facility] [place] Comment on above: Order Comment: No: D o not add to previous draw Performed By: #### 1 0070, 00876, 06328, 51497, 59347, 60524 #### [facility] [address] [place] [address], [place] Sodium [Moles/Vol] 136 mmol/L Normal 136-145 [facility] [place] Comment on above: Order Comment: No: D o not add to previous draw Performed By: #### 1 0070, 43948, 19037, 77984, 70877, 30680 #### [facility] [address] [place] [address], [place] Urea nitrogen [Mass/Vol] 8 mg/dL Normal 7-25 [facility] [place] Comment on above: Order Comment: No: D o not add to previous draw Performed By: #### 1 0070, 80690, 06998, 25655, 02866, 83843 #### [facility] [address] [place] [address], [facility] CBC W/DIFFon 04-01-2020 ABS BASOPHILS 0.0 10*3/uL Normal 0.0-0.2 [facility] [place] Comment on above: Order Comment: No: D o not add to previous draw Performed By: #### 1 0070, 73907, 50757, 83143, 81029, 00104 #### [facility] [address] [place] [address], [facility] ABS IMM GRANS 0.0 10*3/uL Normal 0.0-0.2 [facility] [place] Comment on above: Order Comment: No: D o not add to previous draw Performed By: #### 1 0070, 83418, 59519, 20570, 50606, 41167 #### [facility] [address] ABS NEUTROPHILS 3.4 10*3/uL Normal 1.6-7.6 [facility] [place] Comment on above: Order Comment: No: D o not add to previous draw Performed By: #### 1 0070, 21576, 07826, 15198, 71936, 29024 #### [facility] [address] [place] [address], [facility] Basophils/100 WBC (Bld) 0.2 % Normal 0.0-1.0 [facility] [place] Comment on above: Order Comment: No: D o not add to previous draw Performed By: #### 1 0070, 57369, 31262, 19258, 70049, 87680 #### [facility] [address] [place] [address], [facility] Eosinophils (Bld) [#/Vol] 0.1 10*3/uL Normal 0.0-0.5 [facility] [place] Comment on above: Order Comment: No: D o not add to previous draw Performed By: #### 1 0070, 88943, 79072, 97844, 05827, 65472 #### [facility] [address] [place] [address], [facility] Eosinophils/100 WBC (Bld) 2.6 % Normal 0.0-6.0 [facility] [place] Comment on above: Order Comment: No: D o not add to previous draw Performed By: #### 1 0070, 74673, 50430, 09227, 78821, 09094 #### [facility] [address] [facility] [place] [place] [id number] [place] [address] Erythrocyte distribution width (RBC) [Ratio] 13.0 % Normal 11.5-15.0 [facility] [place] Comment on above: Order Comment: No: D o not add to previous draw Performed By: #### 1 0070, 31892, 40019, 85250, 15622, 16744 #### [facility] [address] [facility] [address] Hematocrit (Bld) [Volume fraction] 40.9 % Normal 36.0-45.0 [facility] [place] Comment on above: Order Comment: No: D o not add to previous draw Performed By: #### 1 0070, 85018, 41337, 69857, 13883, 70908 #### [facility] [address] [facility] [place] [address], [facility] Hemoglobin (Bld) [Mass/Vol] 12.8 g/dL Normal 12.0-15.0 [facility] [place] Comment on above: Order Comment: No: D o not add to previous draw Performed By: #### 1 0070, 93275, 32676, 99327, 74980, 42468 #### [facility] [address] [facility] [place] [address], [facility] IMMATURE GRANS 0.6 % Normal 0.0-1.0 [facility] [place] Comment on above: Order Comment: No: D o not add to previous draw Performed By: #### 1 0070, 89587, 23238, 18027, 24345, 80018 #### [facility] [address] [place] [address], [facility] Lymphocytes (Bld) [#/Vol] 1.2 10*3/uL Normal 1.2-4.0 [facility] [place] Comment on above: Order Comment: No: D o not add to previous draw Performed By: #### 1 0070, 28095, 29037, 09188, 46182, 00956 #### [facility] [address] [place] [address], [facility] Lymphocytes/100 WBC (Bld) 23.7 % Normal 20.0-45.0 [facility] [place] Comment on above: Order Comment: No: D o not add to previous draw Performed By: #### 1 0070, 07249, 08846, 23201, 56923, 51433 #### [facility] [address] [place] [address], [facility] MCH (RBC) [Entitic mass] 27.4 pg Normal 27.0-33.0 [facility] [place] Comment on above: Order Comment: No: D o not add to previous draw Performed By: #### 1 0070, 95947, 43802, 56444, 27032, 28727 #### [facility] [address] [place] [address], [facility] MCHC (RBC) [Mass/Vol] 31.3 g/dL Low 32.0-35.0 [facility] [place] Comment on above: Order Comment: No: D o not add to previous draw Performed By: #### 1 0070, 50273, 28963, 16614, 59989, 15468 #### [facility] [address] [place] [address], [facility] MCV (RBC) [Entitic vol] 87.6 fL Normal 82.0-98.0 [facility] [place] Comment on above: Order Comment: No: D o not add to previous draw Performed By: #### 1 0070, 32294, 12086, 74747, 97424, 57573 #### [facility] [address] [place] [address], [facility] Monocytes (Bld) [#/Vol] 0.3 10*3/uL Normal 0.1-1.0 [facility] [place] Comment on above: Order Comment: No: D o not add to previous draw Performed By: #### 1 0070, 49422, 24102, 11803, 48799, 81831 #### [facility] [address] [place] [address], [facility] MONOS 5.4 % Normal 5.0-12.0 [facility] [place] Comment on above: Order Comment: No: D o not add to previous draw Performed By: #### 1 0070, 12646, 67206, 05131, 46013, 48638 #### [facility] [address] [place] [address], [facility] Neutrophils/100 WBC (Bld) 67.5 % Normal 40.0-72.0 [facility] [place] Comment on above: Order Comment: No: D o not add to previous draw Performed By: #### 1 0070, 78338, 51676, 35193, 43094, 34192 #### [facility] [address] [facility] [place] [address], [facility] Nucleated RBC/100 WBC (Bld) [Ratio] 0 % Normal 0-0 [facility] [place] Comment on above: Order Comment: No: D o not add to previous draw Performed By: #### 1 0070, 44728, 57619, 49113, 40022, 32720 #### [facility] [address] [place] [address], [facility] PLAT CNT 237 10*3/uL Normal 150-400 [facility] [place] Comment on above: Order Comment: No: D o not add to previous draw Performed By: #### 1 0070, 96250, 14037, 28511, 98780, 71278 #### [facility] [address] [place], [place] [id number] [place] [address] RBC (Bld) [#/Vol] 4.67 10*6/uL Normal 3.80-5.00 [facility] Comment on above: Order Comment: No: D o not add to previous draw Performed By: #### 1 0070, 90016, 86496, 23716, 19592, 65312 #### [facility] [address] [facility] [place] [address], [facility] WBC (Bld) [#/Vol] 4.98 10*3/uL Normal 4.00-10.60 [facility] [place] Comment on above: Order Comment: No: D o not add to previous draw Performed By: #### 1 0070, 83989, 83862, 98221, 47131, 99612 #### [facility] [address] [facility] [place], [place] [id number] [place] [address] CHEST AND LATERALon 04-01-20 CHEST AND LATERAL [facility] [place] Department of Radiology [address] [place], [place] [id number] Patient Name: EMIGDIO APODACA : 1965 Sex: F Age: Race: White Pt. Location: [id number] Patient Status: I Ordered Date: 04/01/2020 7:00:00 [...] reports Electronically signed: Shari Arteaga. Transcribed by: [email or web address], User Resident: ANNE VEGA Electronically Signed by: SHARI ARTEAGA @ 04/01/2020 10:12 AM I personally read this/these film(s) with this resident Normal [facility] [place] Comment on above: Order Comment: No: D o not add to previous draw MAGNESIUM BLOODon 04-01-2020 Magnesium [Mass/Vol] 2.1 mg/dL Normal 1.9-2.7 [facility] [place] Comment on above: Order Comment: No: D o not add to previous draw Performed By: #### 1 0070, 89197, 57718, 36154, 50668, 19393 #### [facility] [address] [place] [address], [facility] APTTon 03-31-2020 aPTT Coag (Bld) [Time] 28.3 s Normal 25.0-35.0 Th e [facility] [place] Comment on above: Order Comment: No: D [...] THIS PURPOSE. Performed By: #### 1 0070, 14101, 67240, 26843, 84390, 91753 #### [facility] [address] [place] [address], [facility] BASIC METABOLIC PANELon 06-3 0-2020 Calcium [Mass/Vol] 7.8 mg/dL Low 8.6-10.3 [facility] [place] Comment on above: Order Comment: No: D o not add to previous draw Performed By: #### 1 0070, 25972, 75933, 00659, 42949, 93817 #### [facility] [address] [place] [address], [facility] Chloride [Moles/Vol] 108 mmol/L High 98-107 [facility] [place] Comment on above: Order Comment: No: D o not add to previous draw Performed By: #### 1 0070, 71968, 57047, 17581, 67314, 29495 #### [facility] [address] [place] [address], [facility] CO2 [Moles/Vol] 26 mmol/L Normal 21-31 [facility] [place] Comment on above: Order Comment: No: D o not add to previous draw Performed By: #### 1 0070, 44748, 64569, 46751, 53598, 83447 #### [facility] [address] [place] [id number], [facility] Creatinine [Mass/Vol] 0.76 mg/dL Normal 0.60-1.20 [facility] [place] Comment on above: Order Comment: No: D o not add to previous draw Performed By: #### 1 0070, 68977, 42358, 14538, 57486, 26242 #### [facility] [address] [place] [address], [place] GFR/1.73 sq M predicted among blacks MDRD (S/P/Bld) [Vol rate/Area] mL/min/{1.73_m2} Normal >60 [facility] [place] Comment on above: Order Comment: No: D o not add to previous draw Performed By: #### 1 0070, 24813, 44060, 91838, 08320, 99018 #### [facility] [address] [place] [address], [place] GFR/1.73 sq M predicted among non-blacks MDRD (S/P/Bld) [Vol rate/Area] mL/min/{1.73_m2} Normal >60 [facility] [place] Comment on above: Order Comment: No: D o not add to previous draw Performed By: #### 1 0070, 66339, 58632, 29249, 89550, 17052 #### [facility] [address] [place] [address], [place] Glucose [Mass/Vol] 97 mg/dL Normal 70-100 [facility] [place] Comment on above: Order Comment: No: D o not add to previous draw Performed By: #### 1 0070, 45328, 62956, 68984, 50875, 66117 #### [facility] [address] [place] [address], [place] Potassium [Moles/Vol] 3.2 mmol/L Low 3.5-5.1 [facility] [place] Comment on above: Order Comment: No: D o not add to previous draw Performed By: #### 1 0070, 09748, 29715, 36233, 05641, 57301 #### [facility] [address] [place] [address], [place] Sodium [Moles/Vol] 140 mmol/L Normal 136-145 [facility] [place] Comment on above: Order Comment: No: D o not add to previous draw Performed By: #### 1 0070, 38127, 87321, 09213, 45985, 75803 #### [facility] [address] Urea nitrogen [Mass/Vol] 15 mg/dL Normal 7-25 [facility] [place] Comment on above: Order Comment: No: D o not add to previous draw Performed By: #### 1 0070, 54993, 54325, 69057, 59818, 38194 #### [facility] [address] CBC W/DIFFon 03-31-2020 ABS BASOPHILS 0.0 10*3/uL Normal 0.0-0.2 [facility] [place] Comment on above: Order Comment: No: D o not add to previous draw Performed By: #### 1 0070, 19962, 03550, 93889, 21575, 18918 #### [facility] [address] ABS IMM GRANS 0.0 10*3/uL Normal 0.0-0.2 [facility] [place] Comment on above: Order Comment: No: D o not add to previous draw Performed By: #### 1 0070, 26208, 35913, 28740, 22100, 63479 #### [facility] [address] ABS NEUTROPHILS 3.2 10*3/uL Normal 1.6-7.6 [facility] [place] Comment on above: Order Comment: No: D o not add to previous draw Performed By: #### 1 0070, 37903, 22477, 44354, 52163, 55940 #### [facility] [address] Basophils/100 WBC (Bld) 0.2 % Normal 0.0-1.0 [facility] [place] Comment on above: Order Comment: No: D o not add to previous draw Performed By: #### 1 0070, 58737, 11648, 58299, 37249, 84142 #### [facility] [address] [place] [address], [facility] Eosinophils (Bld) [#/Vol] 0.0 10*3/uL Normal 0.0-0.5 [facility] [place] Comment on above: Order Comment: No: D o not add to previous draw Performed By: #### 1 0070, 43229, 78030, 48493, 06174, 71778 #### [facility] [address] [place] [address], [facility] Eosinophils/100 WBC (Bld) 0.4 % Normal 0.0-6.0 [facility] [place] Comment on above: Order Comment: No: D o not add to previous draw Performed By: #### 1 0070, 55329, 91340, 50622, 60756, 76315 #### [facility] [address] Erythrocyte distribution width (RBC) [Ratio] 13.0 % Normal 11.5-15.0 [facility] [place] Comment on above: Order Comment: No: D o not add to previous draw Performed By: #### 1 0070, 38819, 30396, 24847, 45192, 47636 #### [facility] [address] [place] [address], [facility] Hematocrit (Bld) [Volume fraction] 34.4 % Low 36.0-45.0 [facility] [place] Comment on above: Order Comment: No: D o not add to previous draw Performed By: #### 1 0070, 11018, 10252, 68716, 41334, 71143 #### [facility] [address] [place] [address], [facility] Hemoglobin (Bld) [Mass/Vol] 10.8 g/dL Low 12.0-15.0 [facility] [place] Comment on above: Order Comment: No: D o not add to previous draw Performed By: #### 1 0070, 03466, 03725, 64576, 75472, 70712 #### [facility] [address] [place] [address], [facility] IMMATURE GRANS 0.4 % Normal 0.0-1.0 [facility] [place] Comment on above: Order Comment: No: D o not add to previous draw Performed By: #### 1 0070, [id number], [id number], 94731, 41053, [id number] #### [facility] [address] [place] [address], [facility] Lymphocytes (Bld) [#/Vol] 1.2 10*3/uL Normal 1.2-4.0 [facility] Comment on above: Order Comment: No: D o not add to previous draw Performed By: #### 1 0070, [id number], 26906, 60465, 56353, [id number] #### [facility] [address] [place] [address], [facility] Lymphocytes/100 WBC (Bld) 25.7 % Normal 20.0-45.0 The [facility] Comment on above: Order Comment: No: D o not add to previous draw Performed By: #### 1 0070, 08340, 38288, 22641, 36462, 65827 #### [facility] [address] [facility] [place] [address], [facility] MCH (RBC) [Entitic mass] 27.5 pg Normal 27.0-33.0 [facility] Comment on above: Order Comment: No: D o not add to previous draw Performed By: #### 1 0070, 73058, 49163, 97330, 33737, 35725 #### [facility] [address] [facility] [place] [address], [facility] MCHC (RBC) [Mass/Vol] 31.4 g/dL Low 32.0-35.0 [facility] Comment on above: Order Comment: No: D o not add to previous draw Performed By: #### 1 0070, 48762, 13862, 43902, 79959, 89190 #### [facility] [address] [facility] [place] [address], [facility] MCV (RBC) [Entitic vol] 87.5 fL Normal 82.0-98.0 [facility] Comment on above: Order Comment: No: D o not add to previous draw Performed By: #### 1 0070, 84379, 37637, 99838, 47741, 35813 #### [facility] [address] [facility] [place] [address], [facility] Monocytes (Bld) [#/Vol] 0.3 10*3/uL Normal 0.1-1.0 [facility] Comment on above: Order Comment: No: D o not add to previous draw Performed By: #### 1 0070, 06787, 24410, 87188, 69943, 68262 #### [facility] [address] MONOS 6.2 % Normal 5.0-12.0 [facility] Comment on above: Order Comment: No: D o not add to previous draw Performed By: #### 1 0070, 52935, 79819, 02196, 09398, 74312 #### [facility] [address] [place] [address], [facility] Neutrophils/100 WBC (Bld) 67.1 % Normal 40.0-72.0 [facility] Comment on above: Order Comment: No: D o not add to previous draw Performed By: #### 1 0070, 83005, 41115, 29727, 41691, 13048 #### [facility] [address] [place] [address], [facility] Nucleated RBC/100 WBC (Bld) [Ratio] 0 % Normal 0-0 [facility] Comment on above: Order Comment: No: D o not add to previous draw Performed By: #### 1 0070, 32154, 82926, 61210, 48373, 73886 #### [facility] [address] [facility] [address], [facility] PLAT CNT 210 10*3/uL Normal 150-400 [facility] Comment on above: Order Comment: No: D o not add to previous draw Performed By: #### 1 0070, 43864, 56812, 99241, 28453, 64156 #### [facility] [address] [place], [place] [address] [place] [address] RBC (Bld) [#/Vol] 3.93 10*6/uL Normal 3.80-5.00 [facility] Comment on above: Order Comment: No: D o not add to previous draw Performed By: #### 1 0070, 33082, 59898, 13293, 85456, 29680 #### [facility] [address] [facility]. [address] WBC (Bld) [#/Vol] 4.71 10*3/uL Normal 4.00-10.60 [facility] Comment on above: Order Comment: No: D o not add to previous draw Performed By: #### 1 0070, 75949, 49723, 46949, 07668, 92613 #### [facility] [address] [facility]. [address] Cardiovascular Lab Reporton 03-31-2020 Cardiovascular Lab Report [facility]: [id number] Department of Physician: Rebecca Thomas M.D. Medicine Service Date: 03/31/2020 Division of Birthdate: 1965 Cardiology Room #: 3AB [id number] Adult Cardiovascular Services [facility] [address] [address] Cardiovascular Laboratory Report INDICATIONS FOR PACEMAKER PLACEMENT: [...] silk suture. They were connected to a SwiftStackroniAilola Edora dual-chamber pacing system. This was placed [...] Thomas M.D. Date Trans: 03/31/2020 03:35 P/arturoo [id number] cc: Tony Hines M.D. Heart Failure/ Transplant Mailstop [address] [address] Normal The [facility] MAGNESIUM BLOODon 03-31-2020 Magnesium [Mass/Vol] 1.8 mg/dL Low 1.9-2.7 [facility] Comment on above: Order Comment: No: D o not add to previous draw Performed By: #### 1 0070, 49421, 27340, 03133, 53954, 53513 #### [facility] [address] [facility]. [address] PHOSPHORUS BLOODon 0 Phosphate [Mass/Vol] 2.7 mg/dL Normal 2.5-5.0 [facility] Comment on above: Order Comment: No: D o not add to previous draw Performed By: #### 1 0070, 50223, 59233, 98107, 23329, 21171 #### [facility] [address] [facility]. [address] PROTHROMBIN TIMEon 0 INR Coag (PPP) [Relative time] 1.11 {INR} Normal 0.91-1.16 [facility] Comment on above: Order Comment: No: D [...] CHEST 1995;108:231S-246S. Performed By: #### 1 0070, 88843, 73226, 79036, 51413, 94729 #### [facility] [address] PT Coag (PPP) [Time] 14.3 s Normal 12.3-14.8 [facility] Comment on above: Order Comment: No: D o not add to previous draw Result Comment: ALL RESULTS MUST BE INTERPRETED WITH RESPECT TO BLOOD DRAWING ARTIFACT OR DILUTION ERROR OF ANTICOAGULANT AT THE TIME OF SAMPLING. Performed By: #### 1 0070, 76754, 95886, 23959, 39811, 00616 #### [facility] [address] [facility]. [address] *SARS-CoV-2 COVID-19on 03-30 [id number] Not Detected Normal Not Detected [facility] Comment on above: Order Comment: No: D o not add to previous draw Performed By: #### 1 0070, 13305, 68864, 85612, 70003, 09254 #### [facility] [address] [place] [address], [facility] APTTon 03-30-2020 aPTT Coag (Bld) [Time] 24.9 s Low 25.0-35.0 Th e [facility] Comment on above: Order Comment: No: D [...] THIS PURPOSE. Performed By: #### 5 7307, 36045 #### [facility] [address] BASIC METABOLIC PANELon - Calcium [Mass/Vol] 8.9 mg/dL Normal 8.6-10.3 [facility] Comment on above: Order Comment: No: D o not add to previous draw Performed By: #### 1 0070, 26267, 07443, 16454, 05274, 60396 #### [facility] [address] [place] [address], [facility] Chloride [Moles/Vol] 110 mmol/L High 98-107 [facility] Comment on above: Order Comment: No: D o not add to previous draw Performed By: #### 1 0070, 68270, 21707, 53379, 90526, 03995 #### [facility] [address] [facility] [place] [address], [facility] CO2 [Moles/Vol] 26 mmol/L Normal 21-31 [facility] Comment on above: Order Comment: No: D o not add to previous draw Performed By: #### 1 0070, 64659, 20966, 13777, 02007, 17203 #### [facility] [address] [facility] [place] [address], [facility] Creatinine [Mass/Vol] 0.86 mg/dL Normal 0.60-1.20 [facility] Comment on above: Order Comment: No: D o not add to previous draw Performed By: #### 1 0070, 02266, 88018, 22221, 78570, 69830 #### [facility] [address] [facility] [place] [address], [facility] GFR/1.73 sq M predicted among blacks MDRD (S/P/Bld) [Vol rate/Area] mL/min/{1.73_m2} Normal >60 [facility] Comment on above: Order Comment: No: D o not add to previous draw Performed By: #### 1 0070, 82413, 48779, 42476, 90150, 44319 #### [facility] [address] [place] [address], [facility] GFR/1.73 sq M predicted among non-blacks MDRD (S/P/Bld) [Vol rate/Area] mL/min/{1.73_m2} Normal >60 [facility] Comment on above: Order Comment: No: D o not add to previous draw Performed By: #### 1 0070, 27185, 88911, 85143, 84290, 22786 #### [facility] [address] [place] [address], [place] Glucose [Mass/Vol] 119 mg/dL High 70-100 [facility] Comment on above: Order Comment: No: D o not add to previous draw Performed By: #### 1 0070, 23735, 17923, 94868, 61772, 23936 #### [facility] [address] [place] [address], [facility] Potassium [Moles/Vol] 3.5 mmol/L Normal 3.5-5.1 [facility] Comment on above: Order Comment: No: D o not add to previous draw Performed By: #### 1 0070, 93845, 79632, 29755, 28312, 50043 #### [facility] [address] [place] [address], [place] Sodium [Moles/Vol] 142 mmol/L Normal 136-145 [facility] Comment on above: Order Comment: No: D o not add to previous draw Performed By: #### 1 0070, 29682, 97743, 20733, 44267, 61961 #### [facility] [address] [place] [address], [place] Urea nitrogen [Mass/Vol] 13 mg/dL Normal 7-25 [facility] Comment on above: Order Comment: No: D o not add to previous draw Performed By: #### 1 0070, 56839, 42933, 36346, 34960, 48552 #### [facility] [address] [place] [address], [facility] CBC W/DIFFon 03-30-2020 ABS BASOPHILS 0.0 10*3/uL Normal 0.0-0.2 [facility] Comment on above: Performed By: #### 5 0103 #### [facility] [address] [facility]. [address] ABS IMM GRANS 0.0 10*3/uL Normal 0.0-0.2 [facility] Comment on above: Performed By: #### 5 0103 #### [facility] [address] ABS NEUTROPHILS 5.7 10*3/uL Normal 1.6-7.6 [facility] Comment on above: Performed By: #### 5 0103 #### [facility] [address] Basophils/100 WBC (Bld) 0.0 % Normal 0.0-1.0 [facility] Comment on above: Performed By: #### 5 0103 #### [facility] [address] [place] [address], [facility] Eosinophils (Bld) [#/Vol] 0.0 10*3/uL Normal 0.0-0.5 [facility] Comment on above: Performed By: #### 5 3 #### [facility] [address] [place] [address], [facility] Eosinophils/100 WBC (Bld) 0.0 % Normal 0.0-6.0 [facility] Comment on above: Performed By: #### 5 3 #### [facility] [address] [place] [address], [facility] Erythrocyte distribution width (RBC) [Ratio] 12.9 % Normal 11.5-15.0 [facility] Comment on above: Performed By: #### 5 0103 #### [facility] [address] [facility] [address] Hematocrit (Bld) [Volume fraction] 36.1 % Normal 36.0-45.0 [facility] Comment on above: Performed By: #### 5 0103 #### [facility] [address] [facility] [place] [address], [facility] Hemoglobin (Bld) [Mass/Vol] 11.5 g/dL Low 12.0-15.0 [facility] Comment on above: Performed By: #### 5 0103 #### [facility] [address] IMMATURE GRANS 0.5 % Normal 0.0-1.0 [facility] Comment on above: Performed By: #### 5 0103 #### [facility] [address] Lymphocytes (Bld) [#/Vol] 0.6 10*3/uL Low 1.2-4.0 [facility] Comment on above: Performed By: #### 5 0103 #### [facility] [address] Lymphocytes/100 WBC (Bld) 9.3 % Low 20.0-45.0 [facility] Comment on above: Performed By: #### 5 0103 #### [facility] [address] [facility]. [address] MCH (RBC) [Entitic mass] 27.4 pg Normal 27.0-33.0 [facility] Comment on above: Performed By: #### 5 3 #### [facility] [address] MCHC (RBC) [Mass/Vol] 31.9 g/dL Low 32.0-35.0 [facility] Comment on above: Performed By: #### 102 #### [facility] [address] [facility] [place] [address], [facility] MCV (RBC) [Entitic vol] 86.0 fL Normal 82.0-98.0 [facility] Comment on above: Performed By: #### 102 #### [facility] [address] [facility] [place] [address], [facility] Monocytes (Bld) [#/Vol] 0.2 10*3/uL Normal 0.1-1.0 [facility] Comment on above: Performed By: #### 102 #### [facility] [address] MONOS 2.5 % Low 5.0-12.0 [facility] Comment on above: Performed By: #### 102 #### [facility] [address] Neutrophils/100 WBC (Bld) 87.7 % High 40.0-72.0 [facility] Comment on above: Performed By: #### 102 #### [facility] [address] Nucleated RBC/100 WBC (Bld) [Ratio] 0 % Normal 0-0 [facility] Comment on above: Performed By: #### 5 102 #### [facility] [address] [facility] [place] [address], [facility] PLAT CNT 261 10*3/uL Normal 150-400 [facility] Comment on above: Performed By: #### 102 #### [facility] [address] [place] [address], [facility] RBC (Bld) [#/Vol] 4.20 10*6/uL Normal 3.80-5.00 [facility] Comment on above: Performed By: #### 102 #### [facility] [address] WBC (Bld) [#/Vol] 6.47 10*3/uL Normal 4.00-10.60 [facility] Comment on above: Performed By: #### 5 0103 #### [facility] [address] [facility] [address] FREE T4on 03-30-2020 Free T4 [Mass/Vol] 1.48 ng/dL Normal 0.71-1.85 [facility] Comment on above: Performed By: #### 1 0070, 85686, 32061, 26313, 84303, 35012 #### [facility] [address] [facility]. [address] MAGNESIUM BLOODon 03-30-2020 Magnesium [Mass/Vol] 2.0 mg/dL Normal 1.9-2.7 [facility] Comment on above: Order Comment: No: D o not add to previous draw Performed By: #### 1 0070, 56165, 93079, 07744, 28449, 11407 #### [facility] [address] [facility] [place] [address], [facility] PHOSPHORUS BLOODon 0 Phosphate [Mass/Vol] 2.8 mg/dL Normal 2.5-5.0 [facility] Comment on above: Order Comment: No: D o not add to previous draw Performed By: #### 1 0070, 05788, 71467, 45175, 92403, 39972 #### [facility] [address] [facility] [place] [address], [facility] PROTHROMBIN TIMEon 0 INR Coag (PPP) [Relative time] 1.21 {INR} High 0.91-1.16 [facility] Comment on above: Order Comment: No: D [...] CHEST 1995;108:231S-246S. Performed By: #### 5 7307, 12149 #### [facility] [address] PT Coag (PPP) [Time] 15.4 s High 12.3-14.8 [facility] Comment on above: Order Comment: No: D o not add to previous draw Result Comment: ALL RESULTS MUST BE INTERPRETED WITH RESPECT TO BLOOD DRAWING ARTIFACT OR DILUTION ERROR OF ANTICOAGULANT AT THE TIME OF SAMPLING. Performed By: #### 5 7307, 04192 #### [facility] [address] [place] [address], [facility] TROPONIN-Ion 03-30-2020 Troponin I.cardiac [Mass/Vol] 0.02 ng/mL Normal 0.00-0.04 [facility] Comment on above: Order Comment: No: D o not add to previous draw Result Comment: REFE RENCE RANGES: 0.00 - 0.04 ng/ml NORMAL 0.05 - 0.50 ng/ml INDETERMINATE > 0.50 ng/ml CONSISTENT WITH AN M.I. Performed By: #### 1 0070, 48213, 26412, 36098, 12573, 90491 #### [facility] [address] [place] [address], [facility] Troponin I.cardiac [Mass/Vol] 0.04 ng/mL Normal 0.00-0.04 [facility] Comment on above: Order Comment: No: D o not add to previous draw Result Comment: REFE RENCE RANGES: 0.00 - 0.04 ng/ml NORMAL 0.05 - 0.50 ng/ml INDETERMINATE > 0.50 ng/ml CONSISTENT WITH AN M.I. Performed By: #### 3 5200 #### [facility] [address] [facility]. [address] Troponin I.cardiac [Mass/Vol] 0.04 ng/mL Normal 0.00-0.04 [facility] Comment on above: Order Comment: No: D o not add to previous draw Result Comment: REFE RENCE RANGES: 0.00 - 0.04 ng/ml NORMAL 0.05 - 0.50 ng/ml INDETERMINATE > 0.50 ng/ml CONSISTENT WITH AN M.I. Performed By: #### 1 0070, 63270, 53306, 14908, 52490, 48880 #### [facility] [address] TSH3 WITH REFLEX FT4on 03-30 TSH 3RD GENERATION 0.02 uIU/mL Low 0.34-5.60 [facility] Comment on above: Performed By: #### 1 0070, 67347, 28818, 06626, 95316, 63732 #### [facility] [address] [facility]. [address] Vital Signs Date Time Vital Sign Value Performing Clinician Patrick chen 08-12-2022 15:32-0500 Body temperature 98.1 [degF] MD Tony Turner Work Phone: [facility] 08-12-2022 15:32-0500 Diastolic blood pressure 69 mm[Hg] MD Tony Turner Work Phone: [facility] 08-12-2022 15:32-0500 Heart rate 78 /min MD Tony Turner Work Phone: [facility] 08-12-2022 15:32-0500 Respiratory rate 16 /min MD Tony Turner Work Phone: [facility] 08-12-2022 15:32-0500 SaO2% (BldA) [Mass fraction] 94 % MD Tony Turner Work Phone: [facility] 08-12-2022 15:32-0500 Systolic blood pressure 129 mm[Hg] MD Tony Turner Work Phone: [facility] 08-12-2022 11:00-0500 Inhaled oxygen flow rate 3 L/min MD Tony Turner Work Phone: [facility] 08-11-2022 12:39-0500 Body height 152.4 cm MD Tony Turner Work Phone: [facility] 08-11-2022 06:00-0500 Body weight 44.9 kg MD Tony Turner Work Phone: [facility] 08-10-2022 15:03-0500 Body mass index (BMI) [Ratio] 19.1 kg/m2 MD Tony Turner Work Phone: [facility] 08-03-2022 14:27-0400 Body weight 0 kg MD Tony Turner Work Phone: [facility] Encounters Encounter Date Encounter Type Care Provider Facility Start: 10-24-2023 End: 10-24-2023 ambulatory [facility] Start: 10-23-2023 ambulatory Alejandro Flaherty acility:[facility] Start: 04-26-2023 End: 04-26-2023 ambulatory [facility] Start: 01-03-2023 End: 01-07-2023 Evaluation and management of inpatient DR TONY TURNER . Facility:[facility] Start: 11-01-2022 End: 11-02-[address] TONY TURNER . Facility:[facility] Start: 10-25-2022 End: 10-25-20[facility] Start: 09-30-2022 End: 10-01-[address] ROSALINA RESENDIZ Facility:[facility] Start: 09-02-2022 End: 09-02-2022 ambulatory MD Tony Turner Work Phone: [facility] Work Phone: Start: 09-02-2022 End: 09-02-2022 Patient encounter procedure MD Tony Turner Work Phone: [facility] Start: 08-25-2022 End: 08-25-[address] ROSALINA RESENDIZ Facility:[facility] Start: 08-10-2022 End: 08-12-2022 Admission to same day surgery center MD Tony Turner Work Phone: [facility] Start: 08-10-2022 End: 08-12-2022 ambulatory MD Tony Turner Work Phone: [facility] Work Phone: Start: 08-08-2022 End: 08-08-2022 ambulatory MD Tony Turner Work Phone: [facility] Work Phone: Start: 08-08-2022 End: 08-08-2022 Departed Referred MD Tony Turner Work Phone: [facility] Start: 08-05-2022 End: 08-05-2022 ambulatory MD Tony Turner Work Phone: [facility] Work Phone: Start: 08-05-2022 End: 08-05-2022 Patient encounter procedure MD Tony Turner Work Phone: [facility] Start: 07-30-2022 End: 07-30-[address] ROSALINA RESENDIZ Facility:[facility] Start: 07-04-2022 End: 07-06-[address] TONY Siddiqui Facility:[facility] Start: 07-04-2022 End: 07-04-[address] ALBERTO FERRO Facility:[facility] Start: 06-29-2022 Encounter for preprocedural laboratory examination NADEGE GARDNER . [facility] Start: 06-27-2022 End: 06-28-2022 ambulatory NADEGE [...] Evaluation and management of inpatient EMMY RODRIGUEZD Facility:[facility] Procedures Date Procedure Procedure Detail Performing Clinician [...] Date Care Activity Detail Author Start: 08-12-2022 [facility] Start: 08-10-2022 Consultation [facility] Start: 08-10-2022 End: 08-10-2022 [facility] Acid Fast Bacilli Cu lture & Smear Acid Fast Bacilli Culture & Smear [facility] Anaerobic microbial culture Anaerobic Culture [facility] Bacteria identified in Urine by Culture Urine Culture [facility] Chlamydia trachomati s [Presence] in Unspecified specimen by Organism specific culture [facility] Work Phone: Chlamydia trachomati s [Presence] in Unspecified specimen by Organism specific culture [facility] Fungal Culture Result 1 Fungal C ulture Result 1 [facility] Fungus identified in Unspecified specimen by Culture [facility] Work Phone: Mycobacterium sp identified in Unspecified specimen by Organism specific culture [facility] Work Phone: Mycology Culture Mycology Culture [facility] Patient referral [facility] Work Phone: [facility] Payers Date Payer Category Payer Self-pay 1965 Unknown [id number] 2.16.8 [id number] 1965 Unknown [id number] 2.16.84 [id number] 1965 Unknown [id number] 2.16.84 0.1.221322.3.579.2.593 1965 Unknown [id number] 2.16.84 0.1.515957.3.579.2.593 1965 Unknown [id number] 2.16.84 0.1.073246.3.579.2.593 1965 Unknown [id number] 2.16.84 0.1.457915.3.579.2.593 1964 Unknown [id number] 2.16.84 0.1.481762.3.579.2.593 1964 Unknown [id number] 2.16.84 0.1.811271.3.579.2.593 1964 Unknown [id number] 2.16.84 0.1.609941.3.579.2.593 1964 Unknown [id number] 2.16.84 0.1.029833.3.579.2.593 1964 Unknown [id number] 2.16.84 0.1.389795.3.579.2.593 1964 Unknown [id number] 2.16.84 0.1.983314.3.579.2.593 1964 Unknown [id number] 2.16.84 0.1.765471.3.579.2.593 1964 Unknown [id number] 2.16.84 0.1.669086.3.579.2.593 1965 Unknown [id number] 2.16.84 0.1.219022.3.579.2.593 1960 Self-pay [id number] 1960 Unknown [id number] Unknown [id number] 2.16.8 [id number] Social History Date Type Detail Facility Tobacco smoking stat [facility] Unknown if ever smoked [facility] Work Phone: Start: 1965 Sex Assigned At Female F [facility] Start: 08-10-2022 [facility] Medical Equipment Procedure Code Equipment Code Equipment Origin al Text Equipment Identifier Dates Thoracotomy Surgical adhesive/sealant, human-derived [id number] FDA Start: 08-10-2022 Goals Date Patient Goal Desired Activity /State Functional Status Date Assessment Result Facility 08-12-2022 Functional status Patient at [facility] Work Phone: Mental Status Date Assessment Result Facility 08-12-2022 Cognitive function Cognitive Sta tus Patient at [facility] Work Phone: Clinical Notes 08-10-2022 to [...] and has not been seen by any material checker since pacemaker placement in 2019 ECG 01/02/23 [...] normal upstroke, n (more content not included)... [facility] 10-24-2023 Note Patient here for fol low up echo, stress test, and device check. Review of Systems Constitutional: Positive for malaise/fatigue. Cardiovascular: Positive for chest pain and dyspnea on exertion. Respiratory: Positive for cough. Musculoskeletal: Positive for arthritis, back pain and myalgias. All other systems reviewed and are negative. [facility] 05-03-2023 Note -CT statin [facility] 05-03-2023 Note - Biotronik dual-bryce mber PPM implanted [address] Thomas - normal device function and stable lead thresholds, device checks as scheduled [facility] 05-03-2023 Note [facility] -on inhalers -stable -follow up with pcp [facility] 04-26-2023 Note Patient here for fol low up. She has never been seen [...] All other systems reviewed and are negative. [facility] 04-26-2023 Note [facility]rophys[facility] Consult Note Reason [...] and has not been seen by any material checker since pacemaker placement in 2019 ECG 01/02/23 [...] not heard Extre (more content not included)... [facility] 08-12-2022 History and physi leandro note Note Date/Time August 04, 2022 3:52pm [facility] [address] [place] [address] Cardiothoracic Surgery H&P Signed Patient: Emigdio Apodaca MR#: [id number] : 1965 Acct:[id number] Age/Sex: 56 / F Adm Date: 2 Loc: [place] Room: Type: PRE [facility] Attending Dr: Rodolfo Harley MD Copies to: [...] IgG IgM and IgA were all negative. Anti-SC-3 antibodies were 5.0. ?P ANCA was 1:80. [...] 2020 in the left chest from a material checker at [facility] patient was unable to remember, right carpal [...] patient had normal TSHlevel on 07/04/22 from [facility]. We will give 100 mg of IV Solu-Cortef on-call to the OR. We will utilize vancomycin and Levaquin given the questionable history of penicillin allergy with hives as a baby, although she states she recently had penicillin without issues. Documented By: Rodolfo Harley MD 08/04/22 1223 Signed By: <Electronically signed by MD Rodolfo Harley> 08/12/22 [address] [facility] Work Phone: 1(437) 227-141611-11-2022 Hospital Discharge instructionsAmbulatory Orders* Initiate Home Health Time Frame: 08/12/22, Location: Determined By Patient Additional Instructions no lifting 5-10 lbs. Continue Peridex mouthwash. May remove dressing tomorrow. Daily showers with Betasept wash. No driving.[facility] Work Phone: 1(935) 820-351111-11-2022 Progress note Author Nathaniel Meza [facility] August 12, 2022 11:59am Note Date/Time August 12, 2022 8:13am [facility] [address] [place] [address] Pulmonology Progress Note Signed Patient: Emigdio Apodaca MR#: [id number] : 1965 Acct:[id number] Age/Sex: 56 / F Adm Date: 2 Loc: Room: [address] [place] [address] Type: REG SDC Attending Dr: Rodolfo Harley [...] <Electronically signed by MD Nathaniel Meza> 08/12/22 [address] [facility] Work Phone: 1(783) 755-422311-10-2022 Progress note Author Nathaniel Meza [facility] August 11, 2022 10:07am Note Date/Time August 11, 2022 7:43am [facility] [address] [place] [address] Pulmonology Progress Note Signed Patient: Emigdio Apodaca MR#: [id number] : 1965 Acct:[id number] Age/Sex: 56 / F Adm Date: 2 Loc: Room: [address] [place] [address] Type: [facility] Attending Dr: Rodolfo Harley MD Copies to: [...] <Electronically signed by MD Nathaniel Meza> 08/11/[address] [place] [address] Ctr Work Phone: 1([phone]) 250-227211-09-2022 Consult note Author Nathaniel Meza [facility] August 10, 2022 5:46pm Note Date/Time August 10, 2022 5 :41pm [facility] [address] [place] [address] Pulmonology Consult Note Signed Patient: Emigdio Apodaca MR#: [id number] : 1965 Acct:[id number] Age/Sex: 56 / F Adm Date: 2 Loc: Room: 2U9532-3 Type: [facility] Attending Dr: Rodolfo Harley MD Copies to: [...] been followed by Dr. Nadege Gardner at [place] with complaints of dyspnea on exertion as [...] Signed By: <Electronically signed by MD Nathaniel Meaz> 08/10/22 1740 [facility] Work Phone: Evaluation noteNo assessment information available [facility] Work Phone: Evaluation note* Diagnosis Onset Date Resolution Status Bipolar 1 disorder acute Bronchiectasis acute Hypercholesteremia acute Hypothyroidism acute Interstitial lung disease ac [facility] Work Phone: Evaluation note* Diagnosis Onset Date Resolution Status Bipolar 1 disorder acute Hypercholesteremia acute Hypothyroidism acute Interstitial lung disease ac white pigeon Bipolar 1 disorder acute Bronchiectasis acute Hypercholesteremia acute Hypothyroidism acute Interstitial lung disease [facility] Work Phone: Summary Purpose Family History No Family History Records FoundNo Family History Records FoundNo Family History Records FoundNo Family History Records Found Advance Directives No Advanced Directives Records Found Advance Directive Response Recorded Date/ Time Advance Directives No August 05, 2022 8:18am Hospital Course Note MR#: [id number] [facility] Pt. Name: Emigdio Apodaca Admitted: [...] and content) DATE CREATED AUTHOR 04/23/2020 [facility] DATE CREATED AUTHOR AUTHOR'S ORGANIZ ATION 01/07/2023 [facility] DATE CREATED AUTHOR AUTHOR'S ORGANIZ ATION 10/25/2023 [facility] DATE CREATED AUTHOR AUTHOR'S ORGANIZ ATION 12/27/2023 [facility] Care Teams (unrecognized sec tion and content) Team Status: Inactive Member Role Status Chucho Harley MD Attending Provider Active Tony Turner MD Primary Care Provider Active Team Status: Active Member Role Status Chucho Turner MD Primary Care Provider Active Team Status: Inactive Member Role Status Chucho Turner MD Primary Care Provider Active Rodolfo Harley MD Attending Provider Active Allyssa Washburn APRN [facility] Other Provider Active Jonah Badillo MD [...] BE BASED ON THE PRIMARY CLINICAL RECORDS. [employer] [facility] provides no warranty or guarantee of the accuracy or completeness of information in this document.
--- NOTE | 2023-12-27 20:11 | ECG_ITS ---
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
--- NOTE | 2023-12-27 20:20 | XR_ITS ---
[place] [id number] Patient Name: EMIGDIO ELI MRN: [id number] date: 1965 Sex: F Assigned Patient Location: ER Current Patient Location: ER Accession/Order Number: [id number] Exam Date: 12/27/2023 20:30 Report Date: 12/27/2023 21:04 At the request of: KALEY MARKER Procedure: XR acute abdomen series EXAM: XR acute abdomen series HISTORY: abd pain, hx colitis COMPARISON: Chest x-ray 12/25/2023. CT abdomen pelvis 12/22/2023. TECHNIQUE: Upright PA chest x-ray. Supine and upright KUB abdomen x-ray. FINDINGS: Chest x-ray demonstrates normal heart size and pacemaker leads unchanged. No infiltrate or edema or other acute process. No pleural effusion. Abdominal films without bowel distention or free air. A few incidental air-fluid levels. Soft tissues unremarkable. Scoliosis. XR/XR acute abdomen series IMPRESSION: 1. Normal chest x-ray without acute disease, no change. 2. Abdominal series without bowel distention, ileus or obstruction. No free air. Electronically authenticated by: VALDEMAR CAM Date: 12/27/2023 21:04
--- NOTE | 2023-12-27 20:20 | ED.NAVMDI1 ---
HPI - Nausea/Vomiting/Diarrhea General Chief complaint: Nausea/Vomiting/Diarrhea Stated complaint: Vomiting Time Seen by Provider: 12/27/23 20:01 Source: patient and family Mode of arrival: walk-in Limitations: no limitations History of Present Illness HPI Narrative: This 58-year-old female with a history of chronic obstructive pulmonary disease who was recently admitted to this facility for chronic obstructive pulmonary disease exacerbation and pancolitis and was discharged earlier today presents for reevaluation. The patient states that she had at least 4 episodes of diarrhea before being discharged this afternoon. On the way home she became nauseated and vomited all the food she had eaten earlier in the day and had an additional episode of diarrhea after getting home.. She also states she is very weak and dizzy. She states she feels like the room is spinning. She did have a CT scan done yesterday that was negative for acute findings. She denies any chest pain. She has no focal weakness numbness or tingling. Related Data Home Medications ?Medication ?Instructions ?Recorded ?Confirmed bupropion HCl 300 mg 24 hr tablet, 300 mg PO DAILY 09/25/23 12/27/23 extended release cholecalciferol (vitamin D3) 50 50 mcg PO DAILY 09/25/23 12/27/23 mcg (2,000 unit) capsule citalopram 20 mg tablet 20 mg PO DAILY 09/25/23 12/27/23 lamotrigine 25 mg tablet 50 mg PO BEDTIME 09/25/23 12/27/23 lansoprazole 30 mg capsule,delayed 30 mg PO DAILY 09/25/23 12/27/23 release levothyroxine 125 mcg tablet 125 mcg PO DAILY 09/25/23 12/27/23 simvastatin 20 mg tablet 20 mg PO DAILY 09/25/23 12/27/23 docusate sodium 100 mg capsule 100 mg PO PRN 12/22/23 12/27/23 (Col-Rite) loratadine 10 mg tablet (Allergy 10 mg PO DAILY 12/22/23 12/27/23 Relief (loratadine)) Previous Rx's ?Medication ?Instructions ?Recorded ciprofloxacin HCl 500 mg tablet 500 mg PO Q12H #14 tabs 12/27/23 (Cipro) metronidazole 500 mg tablet 500 mg PO Q8H 7 days #21 tabs 12/27/23 ondansetron 4 mg disintegrating 4 mg PO Q6H PRN nausea and 12/27/23 tablet vomiting #20 tabs sucralfate 1 gram tablet 1 g PO ACHS #120 tabs 12/27/23 Allergies Allergy/AdvReac Type Severity Reaction Status Date / Time acetaminophen [From Percocet] Allergy Mild Vomiting Verified 12/22/23 17:31 codeine Allergy Mild Vomiting Verified 12/22/23 17:31 oxycodone [From Percocet] Allergy Mild Vomiting Verified 12/22/23 17:31 promethazine Allergy Mild Agitated Verified 12/22/23 17:31 Sulfa (Sulfonamide Allergy Mild Vomiting Verified 12/22/23 17:31 Antibiotics) hydromorphone [From Dilaudid] AdvReac Mild Rash Verified 12/22/23 17:31 prochlorperazine AdvReac Mild Verified 12/22/23 17:31 [From Compazine] Review of Systems ROS Status of ROS 10 or more systems reviewed and unremarkable except as noted in history and below [facility] Medical History (Updated 12/27/23 @ 21:51 by Violetta Jones MD) Pulmonary hypertension ?I27.20 - Pulmonary hypertension, unspecified (ICD-10) Cholecystitis ?K81.9 - Cholecystitis, unspecified (ICD-10) Depression ?F32.A - Depression, unspecified (ICD-10) On home O2 ?Z99.81 - Dependence on supplemental oxygen (ICD-10) Hyperthyroidism ?E05.90 - Thyrotoxicosis, unspecified without thyrotoxic crisis or storm (ICD-10) Scoliosis ?M41.9 - Scoliosis, unspecified (ICD-10) Emphysema lung ?J43.9 - Emphysema, unspecified (ICD-10) Nausea & vomiting ?R11.2 - Nausea with vomiting, unspecified (ICD-10) Pacemaker ?Z95.0 - Presence of cardiac pacemaker (ICD-10) COPD (chronic obstructive pulmonary disease) ?J44.9 - Chronic obstructive pulmonary disease, unspecified (ICD-10) Surgical History History of tonsillectomy ?Z90.89 - Acquired absence of other organs (ICD-10) H/O right wrist surgery ?Z98.890 - Other specified postprocedural states (ICD-10) H/O colectomy ?Z90.49 - Acquired absence of other specified parts of digestive tract (ICD-10) Family History Mother Family history of COPD (chronic obstructive pulmonary disease) Grandmother Family history of cancer Sister Family history of diabetes mellitus Father Family history of myocardial infarction Social History (Updated 12/27/23 @ 23:45 by Meghana Lo) Within the past year, how often did you have a drink containing alcohol: never Within the past year, how often did you have six or more drinks on one occasion: never Score interpretation: A score less than 3 is consistent with normal alcohol consumption. 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 Known occupational exposures/hazards: No Highest level of school completed/degree received: 10th grade Do you want help with school or training: No Are you now , , , , never or living with a partner: In a typical week, how many times do you talk on the telephone with family, friends, or neighbors: 3 or more times per week How often do you get together with friends or relatives: 3 or more times per week How often do you attend yazidi or zoroastrian services: 4 or more times per year Do you belong to any clubs or organizations such as yazidi groups unions, fraternal or athletic groups, or school groups: yes Total score: 3 Score interpretation: A score of greater than or equal to 2 indicates the lowest level of social isolation. Little interest or pleasure in doing things: not at all Feeling down, depressed, or hopeless: not at all Feel stressed/tense/nervous/anxious/difficulty sleeping: to some extent Life stressors: unknown source of stress Due to disability, difficulty making decisions: No Do you think of yourself as: bisexual Gender Identity: female Exam Narrative Exam Narrative: Nurses note and vital signs reviewed and patient is not hypoxic. She is afebrile with a normal pulse, she is not hypoxic with pulse ox of 95 percent on room air General: The patient appears well and in no apparent distress. Patient is resting comfortably on cart. Skin: Warm, dry, no pallor noted. There is no rash noted. Head: Normocephalic, atraumatic Eye: Normal conjunctiva, no drainage, EOMI. PERRL, No nystagmus noted Ears, Nose, Mouth, and Throat: oral mucosa is moist. Nares patent. Mouth without vesicles. Cardiovascular: Regular Rate and Rhythm S1S2, no murmurs, rubs or gallops Respiratory: Patient is in no distress, no accessory muscle use, lungs are clear to auscultation, no wheezing, rales or rhonchi Back: non-tender, no CVA tenderness bilaterally to percussion. GI: Normal bowel sounds, no tenderness to palpation, no masses appreciated. No rebound, guarding, or rigidity noted. 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, no focal deficits Psychiatric: Cooperative Constitutional Vital Signs, click to edit/add: Last Vital Signs Temp 97.2 F L 12/28/23 04:14 Pulse 84 12/28/23 04:14 Resp 16 12/28/23 04:14 BP 104/56 12/28/23 04:14 Pulse Ox 97 12/28/23 04:14 O2 Del Method Room Air 12/28/23 04:14 Course Vital Signs Vital signs: Vital Signs Temperature 97.6 F 12/27/23 20:03 Pulse Rate 74 12/27/23 20:03 Respiratory Rate 20 12/27/23 20:03 Blood Pressure 135/81 12/27/23 20:03 Pulse Oximetry 95 12/27/23 20:03 Oxygen Delivery Method Room Air 12/27/23 20:03 Temperature 97.2 F L 12/28/23 04:14 Pulse Rate 84 12/28/23 04:14 Respiratory Rate 16 12/28/23 04:14 Blood Pressure 104/56 12/28/23 04:14 Pulse Oximetry 97 12/28/23 04:14 Oxygen Delivery Method Room Air 12/28/23 04:14 MDM - Nausea/Vomiting/Diarrhea MDM Narrative Medical decision making narrative: This 58-year-old female who was recently admitted for chronic obstructive pulmonary disease exacerbation and pancolitis and was discharged home earlier today presents for evaluation. She states that she had several episodes of diarrhea prior to being discharged in the hospital and became nauseated and vomited on her way home several times and also had diarrhea after arriving home. She has been on antibiotics. She also complains of dizziness and sensation of room spinning. She had a CT scan done of her head onDecember 25, yesterday that was negative. She does not have any focal neurologic deficits. She was discharged home with normal labs and normal vital signs. She presents for reevaluation. An IV was placed and she was medicated with IV fluids and Zofran. She has remained hemodynamically stable in emergency department. She was assisted to the bathroom but did not have any diiarrhea. Gastrointestinal pallets pending. Routine labs are reviewed. She has a normal white count and hemoglobin. Electrolytes are reviewed. Her creatinine is mildly elevated at 1.06 compared to the labs that were performed while she was in the hospital indicating some degree of dehydration. Abdominal series x-ray is negative for acute findings.She is otherwise hemodynamically stable and likely prior readmission for further treatment. Case was discussed with the hospitalist and the patient is accepted for readmission to [facility] status Medical Records Medical records narrative: HISTORY: vertigo, headache, blurred vision COMPARISON: None. TECHNIQUE: Axial noncontrast CT imaging of the head was performed with coronal and sagittal reformats. FINDINGS: Calvarium/skull base: No evidence of acute fracture or destructive lesion. Mastoids and middle ears demonstrate no substantial mucosal disease. Paranasal sinuses: No air fluid levels. Brain: No acute intracranial hemorrhage. No acute large vascular territory infarct. No mass lesion or mass effect. No hydrocephalus. IMPRESSION: No acute intracranial process. Electronically authenticated by: FROY LORENZANA Date: 12/26/2023 09:33 [place] [address] XRay Report Signed Patient: EMIGDIO ELI MR#: [id number] : 1965 Acct:[id number] Age/Sex: 58 / F ADM Date: 12/27/23 Loc: ER Attending Dr: Ordering Physician: Violetta Jones Date of Service: 12/27/23 Procedure(s): XR acute abdomen series Accession Number(s): [id number] cc: Paulo Turner M.D.; Violetta Jones~ The [place] [address] Patient Name: EMIGDIO ELI MRN: [facility]:[id number] date: 1965 Sex: F Assigned Patient Location: ER Current Patient Location: ER Accession/Order Number: [id number] Exam Date: 12/27/2023 20:30 Report Date: 12/27/2023 21:04 At the request of: VIOLETTA MARKER Procedure: XR acute abdomen series EXAM: XR acute abdomen series HISTORY: abd pain, hx colitis COMPARISON: Chest x-ray 12/25/2023. CT abdomen pelvis 12/22/2023. TECHNIQUE: Upright PA chest x-ray. Supine and upright KUB abdomen x-ray. FINDINGS: Chest x-ray demonstrates normal heart size and pacemaker leads unchanged. No infiltrate or edema or other acute process. No pleural effusion. Abdominal films without bowel distention or free air. A few incidental air-fluid levels. Soft tissues unremarkable. Scoliosis. XR/XR acute abdomen series IMPRESSION: 1. Normal chest x-ray without acute disease, no change. 2. Abdominal series without bowel distention, ileus or obstruction. No free air. Lab Data Labs: Lab Results 12/27/23 Range/Units 20:10 WBC 7.9 (4.0-11.0) 10^3/uL RBC 5.30 (4.20-5.40) 10^6/uL Hgb 15.0 (12.0-16.0) g/dL Hct 46.7 (36.0-48.0) % MCV 88.1 (81.0-99.0) fL MCH 28.3 (26.7-34.0) pg MCHC 32.1 (29.9-35.2) g/dL RDW 13.2 (11.0-15.0) % Plt Count 227 (150-450) 10^3/uL MPV 9.5 (9.5-13.5) fL Neut % (Auto) 81.0 H (43.0-75.0) % Lymph % (Auto) 12.5 L (20.5-60.0) % Sheridan % (Auto) 3.7 (1.7-12.0) % Eos % (Auto) 2.4 (0.9-7.0) % Baso % (Auto) 0.3 (0.2-2.0) % Neut # (Auto) 6.4 (1.4-6.5) 10^3/uL Lymph # (Auto) 1.0 L (1.2-3.8) 10^3/uL Sheridan # (Auto) 0.3 (0.3-0.8) 10^3/uL Eos # (Auto) 0.2 (0.0-0.7) 10^3/uL Baso # (Auto) 0.0 (0.0-0.1) 10^3/uL Abs Immat Gran (auto) 0.01 (0.00-0.03) 10^3/uL Imm/Tot Granulo (auto) 0.1 (0.0-0.5) % Sodium 138 (136-145) mmol/L Potassium 4.2 (3.5-5.1) mmol/L Chloride 101 (98-107) mmol/L Carbon Dioxide 29.5 (21.0-32.0) mmol/L Anion Gap 11.7 BUN 15.0 (7.0-18.0) mg/dL Creatinine 1.06 H (0.55-1.02) mg/dL Est GFR ( Amer) >60 (>=60) Est GFR (Non-Af Amer) 53 L (>=60) BUN/Creatinine Ratio 14.2 Glucose 134 H (74-106) mg/dL Calcium 9.4 (8.5-10.1) mg/dL Total Bilirubin 0.4 (0.2-1.0) mg/dL AST 29 (15-37) U/L ALT 25 (14-59) U/L Alkaline Phosphatase 103 (46-116) U/L Total Protein 7.8 (6.4-8.2) g/dL Albumin 3.9 (3.4-5.0) g/dL Globulin 3.9 g/dL Albumin/Globulin Ratio 1.0 ECG Data Attestation: I personally reviewed and interpreted this ECG as follows: (paced rhythm at 76 beats for minute, normal axis, no acute changes) Discharge Plan Discharge Chief Complaint: Nausea/Vomiting/Diarrhea Clinical Impression: Dizziness, Pancolitis, Dehydration, mild Patient Disposition: Admitted As Inpatient Time of Disposition Decision: 22:23 Condition: Good Discharge Date/Time: 12/27/23 22:53
[2023-12-27] MEDS: FAMOTIDINE/PF 20 MG/2 ML VIAL IV (20:29)
[2023-12-27] MEDS: ONDANSETRON PF 4 MG/2 ML VIAL IV (20:29)
[2023-12-27] MEDS: 0.9 % SODIUM CHLORIDE 1,000 ML 1000 ML IV (20:29)
[2023-12-27 20:35] LABS: Basophils Percent Auto 0.3 % (0.2-2.0); Eosinophils Absolute Auto 0.2 10^3/uL (0.0-0.7); Eosinophils Percent Auto 2.4 % (0.9-7.0); Hematocrit 46.7 % (36.0-48.0); Immature Granulocytes Abs Auto 0.01 10^3/uL (0.00-0.03); Immature Granulocytes Pct Auto 0.1 % (0.0-0.5); Lymphocytes Percent Auto 12.5 % (20.5-60.0); Mean Corpuscular HGB Conc 32.1 g/dL (29.9-35.2); Mean Corpuscular Hemoglobin 28.3 pg (26.7-34.0); Mean Corpuscular Volume 88.1 fL (81.0-99.0); Mean Platelet Volume 9.5 fL (9.5-13.5); Monocytes Absolute Auto 0.3 10^3/uL (0.3-0.8); Monocytes Percent Auto 3.7 % (1.7-12.0); Neutrophils Absolute Auto 6.4 10^3/uL (1.4-6.5); Platelet Count 227 10^3/uL (150-450); Red Cell Distribution Width 13.2 % (11.0-15.0); White Blood Count 7.9 10^3/uL (4.0-11.0)
[2023-12-27 20:49] LABS: Alanine Aminotransferase 25 U/L (14-59); Albumin Level 3.9 g/dL (3.4-5.0); Alkaline Phosphatase 103 U/L (46-116); Anion Gap 11.7; Aspartate Amino Transferase 29 U/L (15-37); BUN Creatinine Ratio 14.2; Bilirubin Total 0.4 mg/dL (0.2-1.0); Calcium 9.4 mg/dL (8.5-10.1); Carbon Dioxide 29.5 mmol/L (21.0-32.0); Chloride 101 mmol/L (98-107); Estimated GFR (African America >60 (>=60); Estimated GFR (Non-African Ame 53 (>=60); Globulin 3.9 g/dL; Glucose 134 mg/dL (74-106); Potassium 4.2 mmol/L (3.5-5.1); Sodium 138 mmol/L (136-145); Total Protein 7.8 g/dL (6.4-8.2)
--- NOTE | 2023-12-27 22:47 | PC.NURSE ---
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 Pt states feel right here and requests narrator to feel rt lower abd. Slight firm when pushing on area. pt then wants to know what room she is going to because I want one with windows . Pt told what her room number was going to be and she and her mother talk about what the view is outside of that room's window
--- OUTSIDE RECORDS SUMMARY | 2023-12-27 22:59 | XMS_ITS | CCD ---
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 4.0-11.0 [facility] Comment on above: Performed By: #### C BCMAN ####[facility] Cclghirhds8535[address] [place], [place] [address]Dr. Shahbaz Rogel EOS # 0.00 103/ul Normal 0.00-0.70 [facility] Comment on above: Performed By: #### C BCBRICE ####[facility] Pnwbttklax978087 [address] [place], [place] [address]Dr. Shahbaz Rogel EOS% 0.0 % Critically low 0.9-7.0 [facility] Comment on above: Performed By: #### C BCBRICE ####[facility] Hndpnvbxpx545587 [address] [place], [place] [address]Dr. Shahbaz Rogel HCT 36.5 % Normal 36.0-48.0 [facility] Comment on above: Performed By: #### C BCBRICE ####[facility] Swlgnctfjq2238[address] [place], [place] [address]Dr. Shahbaz Rogel HGB 11.8 g/dl Critically low 12.0-16.0 [facility] Comment on above: Performed By: #### C BCBRICE ####[facility] Zrdudrfkaw230[address] [place], [place] [address]Dr. Shahbaz Rogel LYMPHM # 0.42 103/ul Critically low 1.20-3.80 [facility] Comment on above: Performed By: #### C BCMAN ####[facility] Brhraujgie906[address] [place], [place] [address]Dr. Shahbaz Rogel LYMPHM% 12.0 % Critically low 20.5-60.0 [facility] Comment on above: Performed By: #### C CAIN ####[facility] Vesxdikhke0498 [place] [phone]. Shahbaz Rogel MCH 28.0 pg Normal 26.7-34.0 [facility] Comment on above: Performed By: #### C CAIN ####[facility] Jdfzhcokso8734 [place] [phone]. Shahbaz Rogel MCHC 32.3 g/dl Normal 29.9-35.2 [facility] Comment on above: Performed By: #### C CAIN ####[facility] Khmctmillh16[address] [place] [phone]. Shahbaz Rogel MCV 86.7 fL Normal 81.0-99.0 [facility] Comment on above: Performed By: #### C CAIN ####[facility] Bkvhwbmkdn62[address] [place] [address]Dr. Shahbaz Rogel METAMYELOCYTE # Normal [facility] Comment on above: Performed By: #### Cheir BARLOW ####[facility] Qvqkemcccr017[address] [place], [place] [address]Dr. Shahbaz Rogel METAMYELOCYTE % Normal [facility] Comment on above: Performed By: #### Cheri BARLOW ####[facility] Ecpmdxnluz0055[address] [place], [place] [address]Dr. Shahbaz Rogel MONOM# 0.07 103/ul Critically low 0.30-0.80 [facility] Comment on above: Performed By: #### C CAIN ####[facility] Ftusnhhess3085 [place] [phone]. Shahbaz Rogel MONOM% 2.0 % Normal 1.7-12.0 [facility] Comment on above: Performed By: #### C CAIN ####[facility] Fypmaxirma822387 [address] [place], [place] [address]Dr. Shahbaz Rogel MPV 9.9 fL Normal 9.5-13.5 [facility] Comment on above: Performed By: #### C CAIN ####[facility] Luafshcyvt381087 [address] [place], [place] [address]Dr. Shahbaz Rogel MYELOCYTE # Normal [facility] Comment on above: Performed By: #### C CAIN ####[facility] Xijacalsqe8[address] [place] [phone]. Shahbaz Rogel MYELOCYTE % Normal [facility] Comment on above: Performed By: #### C CAIN ####[facility] Fikuefhtxb98[address] [place] [phone]. Shahbaz Rogel NRBC Normal [facility] Comment on above: Performed By: #### C CAIN ####[facility] Mosctptsti0860 [place] [phone]. Shahbaz Rogel PLT 178 103/ul Normal 150-450 [facility] Comment on above: Performed By: #### C CAIN ####[facility] Ouegaubnkw78[address] [place] [address]Dr. Shahbaz Rogel RBC 4.21 106/ul Normal 4.20-5.40 [facility] Comment on above: Performed By: #### C CAIN ####[facility] Ybtlejrgel129387 [address] [place], [place] [address]Dr. Shahbaz Rogel RDW 13.2 % Normal 11.0-15.0 [facility] Comment on above: Performed By: #### C CAIN ####[facility] Dakyvstawi495[address] [place], [place] [address]Dr. Shahbaz Rogel SEG # 3.01 103/ul Normal 1.40-6.50 [facility] Comment on above: Performed By: #### C CAIN ####[facility] Xajwktysib253887 [address] [place], [place] [address]Dr. Shahbaz Rogel SEG % 86.0 % Critically high 43.0-75.0 [facility] Comment on above: Performed By: #### C CAIN ####[facility] Tfbwddbhyv1506 [place] [phone]. Shahbaz Rogel WBC 3.5 103/ul Critically low 4.0-11.0 [facility] Comment on above: Performed By: #### C CAIN ####[facility] Rqayqykyfd447787 [address] [place], [place] [address]Dr. Shahbaz Rogel PROF CHEM 8 (BAS METB)on Anion gap [Moles/Vol] 10.5 mmol/L Normal [facility] Comment on above: Performed By: #### B MP ####[facility] Eorzwujela242487 [address] [place], [place] [address]Dr. Shahbaz Rogel Calcium [Mass/Vol] 8.7 mg/dL Normal 8.5-10.1 [facility] Comment on above: Performed By: #### B MP ####[facility] Bzgblizqrr515587 [address] [place], [place] [address]Dr. Shahbaz Rogel Chloride [Moles/Vol] 108 mmol/L Critically high 98-107 [facility] Comment on above: Performed By: #### B MP ####[facility] Csrbjqujih997987 [address] [place], [place] [address]Dr. Shahbaz Rogel CO2 [Moles/Vol] 25.2 mmol/L Normal 21.0-32.0 [facility] Comment on above: Performed By: #### B MP ####[facility] Nabtpsrivj074[address] [place], [place] [address]Dr. Shahbaz Rogel Creatinine [Mass/Vol] 0.77 mg/dL Normal 0.55-1.02 [facility] Comment on above: Performed By: #### B MP ####[facility] Jctykwocyn47[address] [place], [place] [address]Dr. Shahbaz Rogel EGFR-AF JORDANIAN >60 Normal >=60 [facility] Comment on above: Performed By: #### B MP ####[facility] Dthqpniglo523587 [address] [place], [place] [address]Dr. Shahbaz Rogel EGFR-NON AF JORDANIAN >60 Normal >=60 [facility] Comment on above: Performed By: #### B MP ####[facility] Nfgmyarllt549087 [address] [place], [place] [address]Dr. Shahbaz Rogel Glucose [Mass/Vol] 169 mg/dL Critically high 74-106 [facility] Comment on above: Performed By: #### B MP ####[facility] Wnfvpfarpn474987 [address] [place], [place] [address]Dr. Shahbaz Rogel Potassium [Moles/Vol] 3.7 mmol/L Normal 3.5-5.1 [facility] Comment on above: Performed By: #### B MP ####[facility] Gqdmqhxyfk707087 [address] [place], [place] [address]Dr. Shahbaz Rogel Sodium [Moles/Vol] 140 mmol/L Normal 136-145 [facility] Comment on above: Performed By: #### B MP ####[facility] Jpfdykbiad290687 [address] [place], [place] [address]Dr. Shahbaz Rogel Urea nitrogen [Mass/Vol] 14.0 mg/dL Normal 7.0-18.0 [facility] Comment on above: Performed By: #### B MP ####[facility] Boainshkua619587 [address] [place], [place] [address]Dr. Shahbaz Rogel Urea nitrogen/Creatinine [Mass ratio] 18.2 mg/mg Normal [facility] Comment on above: Performed By: #### B MP ####[facility] Hcdxmsdsqg202987 [address] [place], [place] [address]Dr. Shahbaz Rogel RESPIRATORY PANEL PLUSon Adenovirus Not detected Normal NOT DETECTED [facility] Comment on above: Performed By: #### R SPLUS ####[facility] Fkdistusqq6300[address] [place], [place] [address]Dr. Shahbaz Rogel B. Parapertusis Not detected Normal NOT DETECTED [facility] Comment on above: Performed By: #### R SPLUS ####[facility] Sfdzfglkoc188587 [address] [place], [place] [address]Dr. Shahbaz Rogel B. Pertussis Not detected Normal NOT DETECTED [facility] Comment on above: Performed By: #### R SPLUS ####[facility] Vkketbeeec048787 [address] [place], [place] [address]Dr. Shahbaz Rogel Chlamydia Pneumoniae Not detected Normal NOT DETECTED [facility] Comment on above: Performed By: #### R SPLUS ####[facility] Nfpejobgie778787 [address] [place], [place] [address]Dr. Shahbaz Rogel Coronavirus 229E Not detected Normal NOT DETECTED [facility] Comment on above: Performed By: #### R SPLUS ####[facility] Vafbmmdeir673487 [address] [place], [place] [address]Dr. Shahbaz Rogel Coronavirus HKU1 Not detected Normal NOT DETECTED [facility] Comment on above: Performed By: #### R SPLUS ####[facility] Pibmrdcznq830[address] [place], [place] [address]Dr. Shahbaz Rogel Coronavirus NL63 Not detected Normal NOT DETECTED [facility] Comment on above: Performed By: #### R SPLUS ####[facility] Hwugxvjgdf234187 [address] [place], [place] [address]Dr. Shahbaz Rogel Coronavirus OC43 Not detected Normal NOT DETECTED [facility] Comment on above: Performed By: #### R SPLUS ####[facility] Mzjbjuftzt040787 [address] [place], [place] [address]Dr. Shahbaz Rogel Influenza A H1 Not detected Normal NOT DETECTED [facility] Comment on above: Performed By: #### R SPLUS ####[facility] Wzwrmjrkkl948087 [address] [place], [place] [address]Dr. Shahbaz Rogel Influenza A H1 2009 Not detected Normal NOT DETECTED [facility] Comment on above: Performed By: #### R SPLUS ####[facility] Rfqumdccfs2210[address] [place], [place] [address]Dr. Shahbaz Rogel Influenza A H3 Not detected Normal NOT DETECTED [facility] Comment on above: Performed By: #### R SPLUS ####[facility] Iqpibiqlzv047[address] [place], [place] [address]Dr. Shahbaz Rogel Influenza B Not detected Normal NOT DETECTED [facility] Comment on above: Performed By: #### R SPLUS ####[facility] Xoqfxopojd171587 [address] [place], [place] [address]Dr. Lilajarrod Rogel Metapneumovirus Detected Abnormal NOT DETECTED [facility] Comment on above: Performed By: #### R SPLUS ####[facility] Aqpevyasma302887 [address] [place], [place] [address]Dr. Shahbaz Rogel Mycoplas. Pneumoniae Not detected Normal NOT DETECTED [facility] Comment on above: Performed By: #### R SPLUS ####[facility] Vzjhkehyfv283487 [address] [place], [place] [address]Dr. Shahbaz Rogel Parainfluenza 1 Not detected Normal NOT DETECTED [facility] Comment on above: Performed By: #### R SPLUS ####[facility] Poylqzpkyk101[address] [place], [place] [address]Dr. Shahbaz Rogel Parainfluenza 2 Not detected Normal NOT DETECTED [facility] Comment on above: Performed By: #### R SPLUS ####[facility] Ucuguzadec400[address] [place], [place] [address]Dr. Shahbaz Rogel Parainfluenza 3 Not detected Normal NOT DETECTED [facility] Comment on above: Performed By: #### R SPLUS ####[facility] Whwwbjgnbs345[address] [place], [place] [address]Dr. Shahbaz Rogel Parainfluenza 4 Not detected Normal NOT DETECTED [facility] Comment on above: Performed By: #### R SPLUS ####[facility] Meunovdaiu6714[address] [place], [place] [address]Dr. Shahbaz Rogel Rhino/Enterovirus Not detected Normal NOT DETECTED [facility] Comment on above: Performed By: #### R SPLUS ####[facility] Xqaeiiwfxz292187 [address] [place], [place] [address]Dr. Shahbaz Rogel RP2 Header 1 RESPIRATORY PANEL: VIRUSES Normal [facility] Comment on above: Performed By: #### R SPLUS ####[facility] Syroempkjn369[address] [place], [place] [address]Dr. Shahbaz Rogel RP2 Header 2 RESPIRATORY PANEL: BACTERIA Normal [facility] Comment on above: Performed By: #### R SPLUS ####[facility] Bctcgcothz0857[address] [place], [place] [address]Dr. Shahbaz Rogel RSV Not detected Normal NOT DETECTED [facility] Comment on above: Performed By: #### R SPLUS ####[facility] Bezfxeafax3015[address] [place], [place] [address]Dr. Shahbaz Rogel SARS-CoV-2 (COVID-19) RNA PAVAN+probe Ql (Unsp spec) Not detected Normal NOT DETECTED [facility] Comment on above: Performed By: #### R SPLUS ####[facility] Gshkshdqrz9740[address] [place], [place] [address]Dr. Shahbaz Rogel CARDIAC ROSALINA 3-6on 3 CK [Catalytic activity/Vol] 148 U/L Normal 26-192 [facility] Comment on above: Performed By: #### C MREP ####[facility] Luijmrfyjm[address] [place] [address]Dr. Shahbaz Rogel CK.MB [Mass/Vol] 0.84 ng/mL Normal <=3.60 [facility] Comment on above: Performed By: #### C MREP ####[facility] Lsnsrarnqp23[address] [place] [address]Dr. Shahbaz Rogel HSTROP 6.4 pg/mL Normal 4.0-51.3 [facility] Comment on above: Result Comment: CUT- OFF POINTS HAVE BEEN ESTABLISHED BASED ON THE FOURTH UNIVERSAL DEFINITIONS OF MYOCARDIALINFARCTION. THE UPPER REFERENCE LIMIT (URL) OF TROPONIN, DEFINED THE 99TH PERCENTILE OFcTnI DISTRIBUTION IN A REFERENCE POPULATION, HAS BEEN CONFIRMED THE DECISION THRESHOLDFOR [place] DIAGNOSIS. Performed By: #### C MREP ####[facility] Bptozbpoop23[address] [place] [address]Dr. Shahbaz Rogel CBC W MANUAL DIFFon 01-04-20 23 ATYPICAL LYMPH # Normal [facility] Comment on above: Performed By: #### C CAIN ####[facility] Lbiyyddemn[address] [place] [address]Dr. Shahbaz Rogel ATYPICAL LYMPH % Normal [facility] Comment on above: Performed By: #### C BCMAN ####[facility] Klasbchbpw2[address] [place] [address]Dr. Shahbaz Juan F BAND # 0.0 103/ul Normal 0.0-0.3 [facility] Comment on above: Performed By: #### C CHANELMAN ####[facility] Nxgxnrhzgj9191 [place] [address]Dr. Shahbaz Juan F BAND % 0 % Normal 0-5 [facility] Comment on above: Performed By: #### C BCMAN ####[facility] Clpqvfkzup9159 [place] [address]Dr. Shahbaz Juan F BASOM # 0.00 103/ul Normal 0.00-0.10 [facility] Comment on above: Performed By: #### C CAIN ####[facility] Ifzjcwtoul0821 [place] [address]Dr. Shahbaz Rogel BASOM % 0.0 % Critically low 0.2-2.0 [facility] Comment on above: Performed By: #### C CAIN ####[facility] Qaduicanea4423 [place] [address]Dr. Shahbaz Rogel BLAST # Normal [facility] Comment on above: Performed By: #### C CAIN ####[facility] Bglbgzuhdl8170[address] [place], [place] [address]Dr. Shahbaz Rogel BLAST % Normal [facility] Comment on above: Performed By: #### C CAIN ####[facility] Rfzfhuosrg5765[address] [place], [place] [address]Dr. Shahbaz Rogel CORRECTED WBC Normal 4.0-11.0 [facility] Comment on above: Performed By: #### C CAIN ####[facility] Sbiivwqurl3737[address] [place], [place] [address]Dr. Shahbaz Rogel EOS # 0.02 103/ul Normal 0.00-0.70 [facility] Comment on above: Performed By: #### C CAIN ####[facility] Dxrmrjsiil786[address] [place], [place] [address]Dr. Shahbaz Rogel EOS% 1.0 % Normal 0.9-7.0 [facility] Comment on above: Performed By: #### C CAIN ####[facility] Acxyfbatug299[address] [place], [place] [address]Dr. Shahbaz Rogel HCT 37.5 % Normal 36.0-48.0 [facility] Comment on above: Performed By: #### C CAIN ####[facility] Ipnojdbvga269[address] [place], [place] [address]Dr. Shahbaz Rogel HGB 12.0 g/dl Normal 12.0-16.0 [facility] Comment on above: Performed By: #### C CAIN ####[facility] Edpephixis454[address] [place], [place] [address]Dr. Shahbaz Rogel LYMPHM # 0.21 103/ul Critically low 1.20-3.80 [facility] Comment on above: Performed By: #### C CAIN ####[facility] Wbijclnhcz9793 [place] [phone]. Shahbaz Rogel LYMPHM% 13.0 % Critically low 20.5-60.0 [facility] Comment on above: Performed By: #### C CAIN ####[facility] Ztwilicxah4741 [place] [phone]. Shahbaz Rogel MCH 27.8 pg Normal 26.7-34.0 [facility] Comment on above: Performed By: #### C CAIN ####[facility] Wbukhlcecj0131 [place] [address]Dr. Shahbaz Rogel MCHC 32.0 g/dl Normal 29.9-35.2 [facility] Comment on above: Performed By: #### C CAIN ####[facility] Wvqodlgcrw859[address] [place], [place] [address]Dr. Shahbaz Rogel MCV 86.8 fL Normal 81.0-99.0 [facility] Comment on above: Performed By: #### C CAIN ####[facility] Pwpeacvmlr7687[address] [place], [place] [address]Dr. Shahbaz Rogel METAMYELOCYTE # Normal [facility] Comment on above: Performed By: #### C CAIN ####[facility] Wkhycaxkaq3[address] [place] [address]Dr. Shahbaz Rogel METAMYELOCYTE % Normal [facility] Comment on above: Performed By: #### C CAIN ####[facility] Hmeryzvyhr9689 [place] [phone]. Shahbaz Rogel MONOM# 0.02 103/ul Critically low 0.30-0.80 [facility] Comment on above: Performed By: #### C CAIN ####[facility] Miaubiofqc0559 [place] [address]Dr. Shahbaz Rogel MONOM% 1.0 % Critically low 1.7-12.0 [facility] Comment on above: Performed By: #### C CAIN ####[facility] Tyihvvwmji4933 [place], [place] [address]Ur. Shahbaz Rogel MPV 9.5 fL Normal 9.5-13.5 [facility] Comment on above: Performed By: #### C CAIN ####[facility] Jcjtqkslsp2067 [place], [place] [address]Ch. Shahbaz Rogel MYELOCYTE # Normal [facility] Comment on above: Performed By: #### C CAIN ####[facility] Cytucghkhg8422 [place] [phone]. Shahbaz Rogel MYELOCYTE % Normal [facility] Comment on above: Performed By: #### C CAIN ####[facility] Lrivuxppyr3730 [place] [phone]. Shahbaz Rogel NRBC Normal [facility] Comment on above: Performed By: #### C CAIN ####[facility] Bkrsjxesyl2565 [place] [phone]. Shahbaz Rogel PLT 173 103/ul Normal 150-450 [facility] Comment on above: Performed By: #### C CAIN ####[facility] Vklwfxqhwl5662 [place] [phone]. Shahbaz Rogel RBC 4.32 106/ul Normal 4.20-5.40 [facility] Comment on above: Performed By: #### C CAIN ####[facility] Jrggmbetgi5228 [place] [phone]. Shahbaz Rogel RDW 13.1 % Normal 11.0-15.0 [facility] Comment on above: Performed By: #### C CAIN ####[facility] Rcusxbexxn5540 [place] [phone]. Shahbaz Rogel SEG # 1.36 103/ul Critically low 1.40-6.50 [facility] Comment on above: Performed By: #### C CAIN ####[facility] Zswbxrwdqj4673 [place] [phone]. Shahbaz Rogel SEG % 85.0 % Critically high 43.0-75.0 [facility] Comment on above: Performed By: #### C CAIN ####[facility] Tgehhotgoq9052 [place] [address]Dr. Shahbaz Rogel WBC 1.6 103/ul Critically low 4.0-11.0 [facility] Comment on above: Performed By: #### C CAIN ####[facility] Tnarafscfc4447[address] [place], [place] [address]Dr. Shahbaz Rogel CT CHEST WO CONon 3 CT CHEST WO CON Normal [facility] ER URINE PROFILEon 3 Bilirubin Ql (U) Negative Normal NEGATIVE [facility] Comment on above: Performed By: #### E RUR ####[facility] Klbklncxqv995[address] [place], [place] [address]Dr. Shahbaz Rogel Clarity (U) CLEAR Normal CLEAR [facility] Comment on above: Performed By: #### E RUR ####[facility] Qxgdrmrbde5916[address] [place], [place] [address]Dr. Shahbaz Rogel Color (U) LT. YELLOW Normal YELLOW [facility] Comment on above: Performed By: #### E RUR ####[facility] Urhzxdcxvg[address] [place], [place] [address]Dr. Shahbaz Rogel ERUAHD A micrscopic examina tion will be performed if indicated. Normal [facility] Comment on above: Performed By: #### E RUR ####[facility] Ztvnfsagrq925[address] [place], [place] [address]Dr. Shahbaz Rogel Glucose Ql (U) Negative Normal NEGATIVE [facility] Comment on above: Performed By: #### E RUR ####[facility] Jbztfqhdqu4497[address] [place], [place] [address]Dr. Shahbaz Rogel Hemoglobin Ql (U) Negative Normal NEGATIVE [facility] Comment on above: Performed By: #### E RUR ####[facility] Wjqcszyuuh4812[address] [place], [place] [address]Dr. Shahbaz Rogel Ketones Ql (U) Negative Normal NEGATIVE [facility] Comment on above: Performed By: #### E RUR ####[facility] Zzcpuqymnm6533[address] [place], [place] [address]Dr. Shahbaz Rogel LEUKOCYTES Negative Normal NEGATIVE [facility] Comment on above: Performed By: #### E RUR ####[facility] V[address]xatsmrx[address] [place] [address]Dr. Shahbaz Rogel Nitrite Ql (U) Negative Normal NEGATIVE [facility] Comment on above: Performed By: #### E RUR ####[facility] Epaftlhafo[address] [place], [place] [address]Dr. Shahbaz Rogel pH (U) 6.0 [pH] Normal 5-9 [facility] Comment on above: Performed By: #### E RUR ####[facility] Anysdlsldi768[address] [place], [place] [address]Dr. Shahbaz Rogel SPEC GRAVITY <=1.005 Abnormal 1.005-<=1. 025 [facility] Comment on above: Performed By: #### E RUR ####[facility] Shecnkpmlh484[address] [place], [place] [address]Dr. Shahbaz Rogel UA PROTEIN Negative Normal NEGATIVE/ TRACE [facility] Comment on above: Performed By: #### E RUR ####[facility] Aqpquzgwsr917[address] [place], [place] [address]Dr. Shahbaz Rogel UR MICRO IND NOT INDICATED Normal [facility] Comment on above: Performed By: #### E RUR ####[facility] Tpcpxmlpsf1769[address] [place], [place] [address]Dr. Shahbaz Rogel Urobilinogen Qn (U) 0.2 {Melida'U}/dL Normal 0.2 - 1. 0 [facility] Comment on above: Performed By: #### E RUR ####[facility] Njaxwagckb214[address] [place], [place] [address]Dr. Shahbaz Rogel LACTATE/LACTIC ACIDon 2022 Lactate [Moles/Vol] 1.5 mmol/L Normal 0.4-2.0 [facility] Comment on above: Performed By: #### L ACT ####[facility] Pyxgjarwjo2829[address] [place], [place] [address]Dr. Shahbaz Rogel PROF CHEM 8 (BAS METB)on Anion gap [Moles/Vol] 11.6 mmol/L Normal [facility] Comment on above: Performed By: #### B MP ####[facility] Uwtvveycvt0[address] [place] [address]Dr. Lilajarrod Rogel Calcium [Mass/Vol] 8.1 mg/dL Critically low 8.5-10.1 [facility] Comment on above: Performed By: #### B MP ####[facility] Jjlzcjezqx3330[address] [place], [place] [address]Dr. Lilajarrod Juan F Chloride [Moles/Vol] 109 mmol/L Critically high 98-107 [facility] Comment on above: Performed By: #### B MP ####[facility] Ryahaqkxnj98[address] [place], [place] [address]Dr. Lilajarrod Juan F CO2 [Moles/Vol] 25.2 mmol/L Normal 21.0-32.0 [facility] Comment on above: Performed By: #### B MP ####[facility] Xgrokkbbsx877[address] [place], [place] [address]Dr. Lilajarrod Juan F Creatinine [Mass/Vol] 0.89 mg/dL Normal 0.55-1.02 [facility] Comment on above: Performed By: #### B MP ####[facility] Ahynevapuf0217[address] [place], [place] [address]Dr. Lilajarrod Juan F EGFR-AF JORDANIAN >60 Normal >=60 [facility] Comment on above: Performed By: #### B MP ####[facility] Ofwudponzv685[address] [place], [place] [address]Dr. Shahbaz Rogel EGFR-NON AF JORDANIAN >60 Normal >=60 [facility] Comment on above: Performed By: #### B MP ####[facility] Eummrlkkit9105[address] [place], [place] [address]Dr. Shahbaz Rogel Glucose [Mass/Vol] 167 mg/dL Critically high 74-106 [facility] Comment on above: Performed By: #### B MP ####[facility] Halotlzhmh316[address] [place], [place] [address]Dr. Shahbaz Rogel Potassium [Moles/Vol] 3.8 mmol/L Normal 3.5-5.1 [facility] Comment on above: Performed By: #### B MP ####[facility] Qtevaortqy4320 [place] [address]Dr. Shahbaz Juan F Sodium [Moles/Vol] 142 mmol/L Normal 136-145 [facility] Comment on above: Performed By: #### B MP ####[facility] Saezhuwthv7938 [place] [id number]. Shahbaz Juan F Urea nitrogen [Mass/Vol] 9.0 mg/dL Normal 7.0-18.0 [facility] Comment on above: Performed By: #### B MP ####[facility] Obahfzsuaf744[address] [place], [place] [address]Dr. Shahbaz Juan F Urea nitrogen/Creatinine [Mass ratio] 10.1 mg/mg Normal [facility] Comment on above: Performed By: #### B MP ####[facility] Hzwtqiihzs367387 [address] [place], [place] [address]Dr. Shahbaz Juan F CARDIAC ROSALINA ADMITon 023 CK [Catalytic activity/Vol] 173 U/L Normal 26-192 [facility] Comment on above: Performed By: #### C EZEKIEL, BMP ####[facility] Raebmyzpfu4985[address] [place], [place] [address]Dr. Shahbaz Juan F CK.MB [Mass/Vol] 0.55 ng/mL Normal <=3.60 [facility] Comment on above: Performed By: #### C EZEKIEL, BMP ####[facility] Vfocvtylgk9026[address] [place], [place] [address]Dr. Shahbaz Juan F HSTROP 5.9 pg/mL Normal 4.0-51.3 [facility] Comment on above: Result Comment: CUT- OFF POINTS HAVE BEEN ESTABLISHED BASED ON THE FOURTH UNIVERSAL DEFINITIONS OF MYOCARDIALINFARCTION. THE UPPER REFERENCE LIMIT (URL) OF TROPONIN, DEFINED THE 99TH PERCENTILE OFcTnI DISTRIBUTION IN A REFERENCE POPULATION, HAS BEEN CONFIRMED THE DECISION THRESHOLDFOR MN DIAGNOSIS. Performed By: #### C EZEKIEL, BMP ####[facility] Xvvxligxwv6722[address] [place], [place] [address]Dr. Shahbaz Rogel LEN 76 ng/mL Normal 9-82 [facility] Comment on above: Performed By: #### C JOSSYM, BMP ####[facility] Rnshdgjzbp5[address] [place] [address]Dr. Shahbaz Rogel CBC W MANUAL DIFFon 01-03-20 23 ATYPICAL LYMPH # Normal [facility] Comment on above: Performed By: #### C CAIN ####[facility] Mnlhbxbjyh24[address] [place] [address]Dr. Shahbaz Rogel ATYPICAL LYMPH % Normal [facility] Comment on above: Performed By: #### C CAIN ####[facility] Wqgxixihwa6058 [place] [address]Dr. Shahbaz Rogel BAND # Normal 0.0-0.3 [facility] Comment on above: Performed By: #### Cheri BARLOW ####[facility] Bcnpqhiyzx608[address] [place], [place] [address]Dr. Shahbaz Rogel BAND % Normal 0-5 [facility] Comment on above: Performed By: #### Cheri BARLOW ####[facility] Cdfqsikiij5064[address] [place], [place] [address]Dr. Shahbaz Rogel BASOM # 0.00 103/ul Normal 0.00-0.10 [facility] Comment on above: Performed By: #### Cheri BARLOW ####[facility] Kxexncygtj718[address] [place], [place] [address]Dr. Shahbaz Rogel BASOM % 0.0 % Critically low 0.2-2.0 [facility] Comment on above: Performed By: #### Cheri BARLOW ####[facility] Hmpbydsnbg[address] [place], [place] [address]Dr. Shahbaz Rogel BLAST # Normal [facility] Comment on above: Performed By: #### Cheri BARLOW ####[facility] Cbktaldepi1535[address] [place], [place] [address]Dr. Shahbaz Rogel BLAST % Normal [facility] Comment on above: Performed By: #### Cheri BARLOW ####[facility] Lltetittvz060[address] [place], [place] [address]Dr. Shahbaz Rogel CORRECTED WBC Normal 4.0-11.0 [facility] Comment on above: Performed By: #### C CAIN ####[facility] Xcpmsibhnr6427 [place], [place] [address]Xf. Shahbaz Rogel EOS # 0.03 103/ul Normal 0.00-0.70 [facility] Comment on above: Performed By: #### C CAIN ####[facility] Wsluliidqo7103 [place] [phone]. Shahbaz Rogel EOS% 1.0 % Normal 0.9-7.0 [facility] Comment on above: Performed By: #### C CAIN ####[facility] Tjsmnuqnue5232 [place] [phone]. Shahbaz Rogel HCT 42.8 % Normal 36.0-48.0 [facility] Comment on above: Performed By: #### C CAIN ####[facility] Wgeotzxqsl2580 [place] [phone]. Shahbaz Rogel HGB 14.1 g/dl Normal 12.0-16.0 [facility] Comment on above: Performed By: #### C CAIN ####[facility] Oserlcwnof2506 [place] [phone]. Shahbaz Rogel LYMPHM # 0.64 103/ul Critically low 1.20-3.80 [facility] Comment on above: Performed By: #### C CAIN ####[facility] Aqatxupqql37[address] [place] [phone]. Shahbaz Rogel LYMPHM% 23.0 % Normal 20.5-60.0 [facility] Comment on above: Performed By: #### C CAIN ####[facility] Ngvkaljypm7313 [place] [phone]. Shahbaz Rogel MCH 28.0 pg Normal 26.7-34.0 [facility] Comment on above: Performed By: #### C CAIN ####[facility] Lxzwmgsvct0548 [place] [phone]. Shahbaz Rogel MCHC 32.9 g/dl Normal 29.9-35.2 [facility] Comment on above: Performed By: #### Cheri BARLOW ####[facility] Pffdqxeglc3517 [place] [phone]. Shahbaz Rogel MCV 84.9 fL Normal 81.0-99.0 [facility] Comment on above: Performed By: #### C BCBRICE ####[facility] Aobfmxhnam8154 [place] [phone]. Shahbaz Rogel METAMYELOCYTE # Normal [facility] Comment on above: Performed By: #### C CAIN ####[facility] Uwdgyfisex5410 [place] [phone]. Shahbaz Rogel METAMYELOCYTE % Normal [facility] Comment on above: Performed By: #### C CAIN ####[facility] Aezexcpfus[address] [place], [place] [address]Dr. Shahbaz Rogel MONOM# 0.31 103/ul Normal 0.30-0.80 [facility] Comment on above: Performed By: #### C CAIN ####[facility] Mxynnjwfia269[address] [place], [place] [address]Dr. Shahbaz Rogel MONOM% 11.0 % Normal 1.7-12.0 [facility] Comment on above: Performed By: #### C CAIN ####[facility] Drhqhuyqbk6829[address] [place], [place] [address]Dr. Shahbaz Rogel MPV 9.5 fL Normal 9.5-13.5 [facility] Comment on above: Performed By: #### C CAIN ####[facility] Mtpwxsjyji7[address] [place], [place] [address]Dr. Shahbaz Rogel MYELOCYTE # Normal [facility] Comment on above: Performed By: #### C CAIN ####[facility] Niavybygzu9824 [place] [phone]. Shahbaz Rogel MYELOCYTE % Normal [facility] Comment on above: Performed By: #### C CAIN ####[facility] Znkdebxhri16[address] [place], [place] [address]Dr. Shahbaz Rogel NRBC Normal [facility] Comment on above: Performed By: #### C CAIN ####[facility] Abqtisanwg[address] [place], [place] [address]Dr. Shahbaz Rogel PLT 197 103/ul Normal 150-450 [facility] Comment on above: Performed By: #### C CHANELBRICE ####[facility] Uldnlzpebu2621 [place], [place] [address]Zg. Shahbaz Rogel RBC 5.04 106/ul Normal 4.20-5.40 [facility] Comment on above: Performed By: #### C CAIN ####[facility] Hygcsjsxkv2781 [place], [place] [address]Rz. Shahbaz Rogel RDW 13.2 % Normal 11.0-15.0 [facility] Comment on above: Performed By: #### C CAIN ####[facility] Odkvgvqmwj6292 [place], [place] [address]Gh. Shahbaz Rogel SEG # 1.82 103/ul Normal 1.40-6.50 [facility] Comment on above: Performed By: #### C CAIN ####[facility] Vdydphhpqx5451 [place], [place] [address]El. Shahbaz Rogel SEG % 65.0 % Normal 43.0-75.0 [facility] Comment on above: Performed By: #### C CAIN ####[facility] Cfdoktocgl8321 [place], [place] [address]Us. Shahbaz Rogel WBC 2.8 103/ul Critically low 4.0-11.0 [facility] Comment on above: Performed By: #### C CAIN ####[facility] Zgilsagapt0314 [place], [place] [address]Hy. Shahbaz Rogel Covid-19 PCR ([facility])on SARS-CoV-2 (COVID-19) RNA PAVAN+probe Ql (Unsp spec) Not detected Normal NOT DETECTED [facility] Comment on above: Result Comment: When [...] for this test is supported by the [place] of Health and Human Service's declaration that [...] be used). Performed By: #### C VDTBH ####[facility] Qobcpxvoqf27[address] [place] [address]Dr. Shahbaz Rogel D-DIMERon 01-02-2023 D-DIMER 0.38 mg/L FEU Normal <=0.59 [facility] Comment on above: Performed By: #### D DIM ####[facility] Xfohbgfjol674[address] [place], [place] [address]DrChen Rogel D-DIMER COMMENTS SEE BELOW Normal [facility] Comment on above: Result Comment: Incr [...] generalized hospitalization. Performed By: #### D DIM ####[facility] Tyegstvouj2624[address] [place], [place] [address]Dr. Shahbaz Rogel LACTATE/LACTIC ACIDon 2022 Lactate [Moles/Vol] 2.1 mmol/L Critically high 0.4-2.0 [facility] Comment on above: Performed By: #### L ACT ####[facility] Defzvxdfim448[address] [place], [place] [address]DrChen Rogel PROF CHEM 8 (BAS METB)on Anion gap [Moles/Vol] 14.3 mmol/L Normal [facility] Comment on above: Performed By: #### C MADM, BMP ####[facility] Igkaxgztei8999 [place] [phone]. Shahbaz Rogel Calcium [Mass/Vol] 9.0 mg/dL Normal 8.5-10.1 [facility] Comment on above: Performed By: #### Cheri FALCON, BMP ####[facility] Dxjbtwyuvs2477[address] [place], [place] [address]Dr. Shahbaz Rogel Chloride [Moles/Vol] 102 mmol/L Normal 98-107 [facility] Comment on above: Performed By: #### C EZEKIEL, BMP ####[facility] Uclqhyskrt4025[address] [place], [place] [address]Dr. Shahbaz Rogel CO2 [Moles/Vol] 25.5 mmol/L Normal 21.0-32.0 [facility] Comment on above: Performed By: #### C EZEKIEL, BMP ####[facility] Gixmackmkn0626[address] [place], [place] [address]Dr. Shahbaz Rogel Creatinine [Mass/Vol] 1.01 mg/dL Normal 0.55-1.02 [facility] Comment on above: Performed By: #### Cheri FALCON, BMP ####[facility] Hqreirgzcx1500[address] [place], [place] [address]Dr. Shahbaz Rogel EGFR-AF JORDANIAN >60 Normal >=60 [facility] Comment on above: Performed By: #### C EZEKIEL, BMP ####[facility] Oaaiussiup9670[address] [place], [place] [address]Dr. Shahbaz Rogel EGFR-NON AF JORDANIAN 56 mL/min/1.73m2 Critically low >=60 [facility] Comment on above: Performed By: #### Cheri FALCON, BMP ####[facility] Uedhcumsbn3916[address] [place], [place] [address]Dr. Shahbaz Rogel Glucose [Mass/Vol] 105 mg/dL Normal 74-106 [facility] Comment on above: Performed By: #### Cheri FALCON, BMP ####[facility] Mejijjmffy2060[address] [place], [place] [address]Dr. Shahbaz Rogel Potassium [Moles/Vol] 3.8 mmol/L Normal 3.5-5.1 [facility] Comment on above: Performed By: #### C JOSSYM, BMP ####[facility] Atoihdceoh8524[address] [place], [place] [address]Dr. Shahbaz Juan F Sodium [Moles/Vol] 138 mmol/L Normal 136-145 [facility] Comment on above: Performed By: #### C MADM, BMP ####[facility] Yjqskzpbod4739[address] [place], [place] [address]Dr. Shahbaz Juan F Urea nitrogen [Mass/Vol] 9.0 mg/dL Normal 7.0-18.0 [facility] Comment on above: Performed By: #### C EZEKIEL, BMP ####[facility] Pskxpednau2864[address] [place], [place] [address]Dr. Shahbaz Rogel Urea nitrogen/Creatinine [Mass ratio] 8.9 mg/mg Normal [facility] Comment on above: Performed By: #### C EZEKIEL, BMP ####[facility] Wkncgzzeyk7379[address] [place], [place] [address]Dr. Shahbaz Rogel XR CHEST 1 Von 01-02-2023 XR CHEST 1 V Normal [facility] INSULINon 11-02-2022 Insulin 6.0 uIU/mL Normal 2.6-24.9 [facility] Comment on above: Performed By: #### I NSULIN ####[facility] Jxojadpxhq9405[address] [place], [place] [address]Dr. Shahbaz Rogel CBC AUTO DIFFon 11-01-2022 BASO # 0.0 103/ul Normal 0.0-0.1 [facility] Comment on above: Performed By: #### C BC ####[facility] Ectmonlsbq147[address] [place], [place] [address]Dr. Shahbaz Rogel Basophils/100 WBC (Bld) 0.5 % Normal 0.2-2.0 [facility] Comment on above: Performed By: #### C BC ####[facility] Ofwkvlxwjy819[address] [place], [place] [address]Dr. Shahbaz Rogel EO # 0.2 103/ul Normal 0.0-0.7 [facility] Comment on above: Performed By: #### C BC ####[facility] Bmbspsdgby[address] [place], [place] [address]Dr. Shahbaz Rogel Eosinophils/100 WBC (Bld) 5.2 % Normal 0.9-7.0 [facility] Comment on above: Performed By: #### C BC ####[facility] Jlzpnygtpy1477[address] [place], [place] [address]Dr. Shahbaz Rogel Erythrocyte distribution width (RBC) [Ratio] 12.7 % Normal 11.0-15.0 [facility] Comment on above: Performed By: #### C BC ####[facility] Guymhbwpjj149[address] [place], [place] [address]Dr. Shahbaz Rogel Hematocrit (Bld) [Volume fraction] 46.4 % Normal 36.0-48.0 [facility] Comment on above: Performed By: #### C BC ####[facility] Awrfvjbrow6467[address] [place], [place] [address]Dr. Shahbaz Rogel Hemoglobin (Bld) [Mass/Vol] 14.9 g/dL Normal 12.0-16.0 [facility] Comment on above: Performed By: #### C BC ####[facility] Dctifgerlv1250[address] [place], [place] [address]Dr. Shahbaz Rogel IG # 0.00 10e3/ul Normal 0.00-0.03 [facility] Comment on above: Performed By: #### C BC ####[facility] Ttvcuprmtl[address] [place], [place] [address]Dr. Shahbaz Rogel IG % 0.0 % Normal 0.0-0.5 [facility] Comment on above: Performed By: #### C BC ####[facility] Ppxyvywznd713[address] [place], [place] [address]Dr. Shahbaz Rogel LYMPH # 1.1 103/ul Critically low 1.2-3.8 [facility] Comment on above: Performed By: #### C BC ####[facility] Cxuscfrrim4465[address] [place], [place] [address]Dr. Shahbaz Rogel Lymphocytes/100 WBC (Bld) 25.5 % Normal 20.5-60.0 [facility] Comment on above: Performed By: #### C BC ####[facility] Nknbfeivzu35[address] [place] [address]Dr. Shahbaz Juan F MANUAL DIFF REQ NO Normal [facility] Comment on above: Performed By: #### C BC ####[facility] Jhvvosfhhj8609 [place] [address]Dr. Shahbaz Juan F MCH (RBC) [Entitic mass] 27.8 pg Normal 26.7-34.0 [facility] Comment on above: Performed By: #### C BC ####[facility] Zbwcdcfnix6333 [place] [address]Dr. Shahbaz Juan F MCHC (RBC) [Mass/Vol] 32.1 g/dL Normal 29.9-35.2 [facility] Comment on above: Performed By: #### C BC ####[facility] Fmynmubhag2815 [place] [address]Dr. Lilajarrod Rogel MCV (RBC) [Entitic vol] 86.6 fL Normal 81.0-99.0 [facility] Comment on above: Performed By: #### C BC ####[facility] Dqpwhmrkul3940[address] [place], [place] [address]Dr. Lilajarrod Rogel MONO # 0.2 103/ul Critically low 0.3-0.8 [facility] Comment on above: Performed By: #### C BC ####[facility] Vpsorubvud4999[address] [place], [place] [address]Dr. Shahbaz Rogel Monocytes/100 WBC (Bld) 5.4 % Normal 1.7-12.0 [facility] Comment on above: Performed By: #### C BC ####[facility] Hxjbvedkeo0350 [place] [address]Dr. Shahbaz Rogel NEUT # 2.7 103/ul Normal 1.4-6.5 [facility] Comment on above: Performed By: #### C BC ####[facility] Kulqyniedq5[address] [place], [place] [address]Dr. Shahbaz Rogel Neutrophils/100 WBC (Bld) 63.4 % Normal 43.0-75.0 [facility] Comment on above: Performed By: #### C BC ####[facility] Wohnhqtnzj0042 [place] [address]Dr. Shahbaz Rogel Platelet mean volume (Bld) [Entitic vol] 9.4 fL Critically low 9.5-13.5 [facility] Comment on above: Performed By: #### C BC ####[facility] Fdqmoozrys5812 [place] [address]Dr. Shahbaz Rogel PLT 216 103/ul Normal 150-450 [facility] Comment on above: Performed By: #### C BC ####[facility] Ikzceoriks0079 [place] [address]Dr. Shahbaz Rogel RBC 5.36 106/ul Normal 4.20-5.40 [facility] Comment on above: Performed By: #### C BC ####[facility] Junyxqqpzq9015[address] [place], [place] [address]Dr. Shahbaz Rogel WBC 4.2 103/ul Normal 4.0-11.0 [facility] Comment on above: Performed By: #### C BC ####[facility] Crupuqblbt1196 [place] [address]Dr. Shahbaz Rogel FREE THYROXINE INDEX T7on FTI 2.92 Normal 1.30-4.50 [facility] Comment on above: Performed By: #### C MP, LIPID, T7, TSH ####[facility] Foddvuctaf6467 [place] [address]Dr. Shahbaz Rogel T3U 37.0 % Normal 30.0-39.0 [facility] Comment on above: Performed By: #### C MP, LIPID, T7, TSH ####[facility] Jlqlxtqvuk8388 [place] [address]Dr. Shahbaz Rogel T4 [Mass/Vol] 7.90 ug/dL Normal 4.80-13.90 [facility] Comment on above: Performed By: #### C MP, LIPID, T7, TSH ####[facility] Nkvmomhuvg7029 [place] [address]Dr. Shahbaz Rogel GLYCOHEMOGLOBIN A1Con 2022 ADA RECOMMENDATION SEE BELOW Normal [facility] Comment on above: Result Comment: ADA RECOMMENDED LIMIT 4.0 - 6.0 ADA THERAPEUTIC TARGET < 7.0 ACTION SUGGESTED > 7.0 Performed By: #### A 1C ####[facility] Stmiguvbwg6079 [place] [address]Dr. Shahbaz Rogel Glucose [Mass/Vol] 120 mg/dL Normal [facility] Comment on above: Performed By: #### A 1C ####[facility] Hqiswwethb2000[address] [place], [place] [address]Dr. Shahbaz Rogel HbA1c (Bld) [Mass fraction] 5.8 % Normal 4.5-6.2 [facility] Comment on above: Performed By: #### A 1C ####[facility] Azqkpbizmw3669[address] [place], [place] [address]Dr. Shahbaz Rogel IRONon 11-01-2022 Iron [Mass/Vol] 54.0 ug/dL Normal 50.0-170.0 [facility] Comment on above: Performed By: #### I GRIS ####[facility] Zajqmgaezg69[address] [place], [place] [address]Dr. Shahbaz Rogel LIPID PROFILEon 11-01-2022 CHOL-HDL RATIO NORM SEE BELOW Normal [facility] Comment on above: Result Comment: 3.3 - 4.4 LOW RISK 4.4 - 7.1 AVERAGE RISK 7.1 - 11.0 MODERATE RISK >11.0 HIGH RISK Performed By: #### C MP, LIPID, T7, TSH ####[facility] Ntbjultstl[address] [place], [place] [address]Dr. Shahbaz Rogel Cholesterol [Mass/Vol] 203 mg/dL Critically high <=200 [facility] Comment on above: Performed By: #### C MP, LIPID, T7, TSH ####[facility] Zxrlvtepkp[address] [place], [place] [id number]. Shahbaz Rogel Cholesterol in HDL [Mass/Vol] 42 mg/dL Normal 40-60 [facility] Comment on above: Performed By: #### C MP, LIPID, T7, TSH ####[facility] Ghcpkkntjf3134 [place] [address]Dr. Shahbaz Rogel Cholesterol in LDL [Mass/Vol] 121.4 mg/dL Normal [facility] Comment on above: Performed By: #### C MP, LIPID, T7, TSH ####[facility] Wuk[address]jcpbd5[address] [place] [id number]. Shahbaz Rogel Cholesterol.total/Chol esterol in HDL [Mass ratio] 4.8 {ratio} Normal [facility] Comment on above: Performed By: #### C MP, LIPID, T7, TSH ####[facility] [address]ebrqlnmam4[address] [place] [id number]. Shahbaz Rogel HDL NORMAL > or = 60 mg/dl - LO W CARDIOVASCULAR RISK <40 mg/dl - HIGH CARDIOVASCULAR RISK Normal [facility] Comment on above: Performed By: #### C MP, LIPID, T7, TSH ####[facility] [address] [place] [address]Dr. Shahbaz Rogel LDL CALC NORMAL SEE BELOW Normal [facility] Comment on above: Result Comment: <100 mg/dl OPTIMAL 100 - 129 mg/dl NEAR OR ABOVE OPTIMAL 130 - 159 mg/dl BORDERLINE HIGH 160 - 189 mg/dl HIGH >190 mg/dl VERY HIGH Performed By: #### C MP, LIPID, T7, TSH ####[facility] [address] [place] [id number]. Shahbaz Rogel Triglyceride [Mass/Vol] 198 mg/dL Critically high <=150 [facility] Comment on above: Performed By: #### C MP, LIPID, T7, TSH ####[facility] [address] [place] [id number]. Shahbaz Rogel VLDL CALC 39.6 mg/dL Normal [facility] Comment on above: Performed By: #### C MP, LIPID, T7, TSH ####[facility] Xvtwf[address]awfk[address] [place] [id number]. Shahbaz Rogel PROF 14(COMP METB)on 023 Albumin [Mass/Vol] 4.1 g/dL Normal 3.4-5.0 [facility] Comment on above: Performed By: #### C MP, LIPID, T7, TSH ####[facility] Cvplzwdiag[address] [place] [id number]. Shahbaz Rogel Albumin/Globulin [Mass ratio] 1.0 {ratio} Normal [facility] Comment on above: Performed By: #### C MP, LIPID, T7, TSH ####[facility] Wh[address] [place] [address]Dr. Shahbaz Rogel ALP [Catalytic activity/Vol] 126 U/L Critically high 46-116 [facility] Comment on above: Performed By: #### C MP, LIPID, T7, TSH ####[facility] Wol[address]ccod[address] [place] [address]Dr. Shahbaz Rogel ALT [Catalytic activity/Vol] 30 U/L Normal 14-59 [facility] Comment on above: Performed By: #### C MP, LIPID, T7, TSH ####[facility] Rpdavzlojt[address] [place] [address]Dr. Shahbaz Rogel Anion gap [Moles/Vol] 12.3 mmol/L Normal [facility] Comment on above: Performed By: #### C MP, LIPID, T7, TSH ####[facility] [address] [place], [place] [address]Dr. Shahbaz Rogel AST [Catalytic activity/Vol] 25 U/L Normal 15-37 [facility] Comment on above: Performed By: #### C MP, LIPID, T7, TSH ####[facility] F[address]stsiplax[address] [place] [address]Dr. Shahbaz Rogel Bilirubin [Mass/Vol] 0.5 mg/dL Normal 0.2-1.0 [facility] Comment on above: Performed By: #### C MP, LIPID, T7, TSH ####[facility] [address]nsfrrov[address] [place] [address]Dr. Shahbaz Rogel Calcium [Mass/Vol] 9.4 mg/dL Normal 8.5-10.1 [facility] Comment on above: Performed By: #### C MP, LIPID, T7, TSH ####[facility] T[address]lsgh[address] [place] [address]Dr. Shahbaz Rogel Chloride [Moles/Vol] 104 mmol/L Normal 98-107 [facility] Comment on above: Performed By: #### C MP, LIPID, T7, TSH ####[facility] Ljcwttxptq[address] [place] [id number]. hSahbaz Rogel CO2 [Moles/Vol] 29.6 mmol/L Normal 21.0-32.0 [facility] Comment on above: Performed By: #### C MP, LIPID, T7, TSH ####[facility] [address]oywk[address] [place] [phone]. Shahbaz Rogel Creatinine [Mass/Vol] 0.91 mg/dL Normal 0.55-1.02 [facility] Comment on above: Performed By: #### C MP, LIPID, T7, TSH ####[facility] [address]mcpeoh[address] [place] [id number]. Shahbaz Rogel EGFR-AF JORDANIAN >60 Normal >=60 [facility] Comment on above: Performed By: #### C MP, LIPID, T7, TSH ####[facility] Ogwmdxissy[address] [place] [address]Dr. Shahbaz Juan F EGFR-NON AF JORDANIAN >60 Normal >=60 [facility] Comment on above: Performed By: #### C MP, LIPID, T7, TSH ####[facility] Xtnqgnkyvl73[address] [place] [phone]. Shahbaz Rogel Globulin (S) [Mass/Vol] 4.0 g/dL Normal [facility] Comment on above: Performed By: #### C MP, LIPID, T7, TSH ####[facility] [address]zle[address] [place] [phone]. Shahbaz Rogel Glucose [Mass/Vol] 85 mg/dL Normal 74-106 [facility] Comment on above: Performed By: #### C MP, LIPID, T7, TSH ####[facility] Mnmnxtptsr7[address] [place] [phone]. Shahbaz Rogel Potassium [Moles/Vol] 3.9 mmol/L Normal 3.5-5.1 [facility] Comment on above: Performed By: #### C MP, LIPID, T7, TSH ####[facility] Jzgqgwrqks[address] [place] [phone]. Lilajarrod Rogel Protein [Mass/Vol] 8.1 g/dL Normal 6.4-8.2 [facility] Comment on above: Performed By: #### C MP, LIPID, T7, TSH ####[facility] [address]mcet[address] [place] [address]Dr. Shahbaz Rogel Sodium [Moles/Vol] 142 mmol/L Normal 136-145 [facility] Comment on above: Performed By: #### C MP, LIPID, T7, TSH ####[facility] Yrbxpadibi[address] [place] [address]Dr. Shahbaz Rogel Urea nitrogen [Mass/Vol] 9.0 mg/dL Normal 7.0-18.0 [facility] Comment on above: Performed By: #### C MP, LIPID, T7, TSH ####[facility] [address] [place], [place] [address]Dr. Shahbaz Rogel Urea nitrogen/Creatinine [Mass ratio] 9.9 mg/mg Normal [facility] Comment on above: Performed By: #### C MP, LIPID, T7, TSH ####[facility] [address] [place], [place] [address]Dr. Shahbaz Rogel TSHon 11-01-2022 TSH 0.045 uIU/mL Critically low 0.358-3.74 0 [facility] Comment on above: Performed By: #### C MP, LIPID, T7, TSH ####[facility] [address] [place] [address]Dr. Shahbaz Rogel XR HUMERUS LT MIN 2Von 10-01 XR HUMERUS LT MIN 2V Normal [facility] XR LSPINE 2_3 VIEWSon 2021 XR LSPINE 2_3 VIEWS Normal [facility] XR CHEST 1 Von 08-25-2022 XR CHEST 1 V Normal [facility] ACID FAST SMEAR AND CXon Acid Fast Culture Negative Normal [facility] Comment on above: Result Comment: No a ninfa fast bacilli isolated after 6 weeks. Performed By: #### A FB ####[facility] [address] [place] [address]Dr. Shahbaz Rogel Acid Fast Smear Negative Normal [facility] Comment on above: Performed By: #### A FB ####[facility] [address] [place], [place] [address]Kf. Shahbaz Rogel [employer] Specimen Processing Concentration Normal [facility] Comment on above: Performed By: #### A FB ####[facility] [address] [place], [place] [address]Iy. Shahbaz Rogel Bacteria identified Anaer cx Nom (Unsp spec)Ordered By: Rodolfo Harley on 08-13-2022 Anaerobic microbial culture No Anaerobes Isolated 3 Days [facility] Basophils Auto (Bld) [#/Vol] Ordered By: Rodolfo Harley on 08-12-2022 Basophils (Bld) [#/Vol] 0.0 10*3/uL 0.0-0.2 [facility] Basophils/100 WBC Auto (Bld) Ordered By: Rodolfo Harley on 08-12-2022 Basophils/100 WBC (Bld) 0.4 % . [facility] Creatinine and Glomerular fi ltration rate.predicted panel (S/P/Bld)Ordered By: Rodolfo Harley on 08-12-2022 Creatinine [Mass/Vol] 0.74 mg/dL 0.44-1.03 [facility] Eosinophils Auto (Bld) [#/Vo l]Ordered By: Rodolfo Harley on 08-12-2022 Eosinophils (Bld) [#/Vol] 0.0 10*3/uL 0.0-0.45 [facility] Eosinophils/100 WBC Auto (Bl d)Ordered By: Rodolfo Harley on 08-12-2022 Eosinophils/100 WBC (Bld) 0.0 % . [facility] Erythrocyte distribution wid th Auto (RBC) [Ratio]Ordered By: Rodolfo Harley on 08-12-2022 Erythrocyte distribution width (RBC) [Ratio] 14.2 % 11.9-15.3 [facility] Estimated glomerular filtrat ion rate (GFR) non- AmericanOrdered By: Rodolfo Harley on 08-12-2022 GFR/1.73 sq M.predicted among non-blacks MDRD (S/P/Bld) [Vol rate/Area] > 60 mL/Min [facility] Hematocrit Auto (Bld) [Volum e fraction]Ordered By: Rodolfo Harley on 08-12-2022 Hematocrit (Bld) [Volume fraction] 38.0 % 34.0-46.4 [facility] Hemoglobin [Mass/volume] in BloodOrdered By: Rodolfo Harley on 08-12-2022 Hemoglobin (Bld) [Mass/Vol] 12.5 g/dL 11.8-15.4 [facility] Laboratory - Hematology and Cell countsOrdered By: Rodolfo Harley on 08-12-2022 Nucleated RBC/100 WBC (Bld) [Ratio] 0.1 % 0-0.5 [facility] Leukocytes [#/volume] in Blo od by Automated countOrdered By: Rodolfo Harley on 08-12-2022 WBC (Bld) [#/Vol] 5.8 10*3/uL 4.5-11.0 [facility] Lymphocytes Auto (Bld) [#/Vo l]Ordered By: Rodolfo Harley on 08-12-2022 Lymphocytes (Bld) [#/Vol] 0.7 10*3/uL 1.00-4.8 [facility] Lymphocytes/100 WBC Auto (Bl d)Ordered By: Rodolfo Harley on 08-12-2022 Lymphocytes/100 WBC (Bld) 11.4 % . [facility] MCH Auto (RBC) [Entitic mass ]Ordered By: Rodolfo Harley on 08-12-2022 MCH (RBC) [Entitic mass] 28.1 pg 24.7-34.3 [facility] MCHC Auto (RBC) [Mass/Vol]Or dered By: Rodolfo Harley on 08-12-2022 MCHC (RBC) [Mass/Vol] 32.9 g/dL 32.0-35.0 [facility] MCV Auto (RBC) [Entitic vol] Ordered By: Rodolfo Harley on 08-12-2022 MCV (RBC) [Entitic vol] 85.4 fL 80-100 [facility] Monocytes Auto (Bld) [#/Vol] Ordered By: Rodolfo Harley on 08-12-2022 Monocytes (Bld) [#/Vol] 0.3 10*3/uL 0.0-0.8 [facility] Monocytes/100 WBC Auto (Bld) Ordered By: Rodolfo Harley on 08-12-2022 Monocytes/100 WBC (Bld) 4.8 % . [facility] Neutrophils Auto (Bld) [#/Vo l]Ordered By: Rodolfo Harley on 08-12-2022 Neutrophils (Bld) [#/Vol] 4.8 10*3/uL 1.8-7.7 [facility] Neutrophils/100 WBC Auto (Bl d)Ordered By: Rodolfo Harley on 08-12-2022 Neutrophils/100 WBC (Bld) 83.4 % . [facility] No Panel InformationOrdered By: Rodolfo Harley on 08-12-2022 Estimated GFR () > 60 mL/Min [facility] Comment on above: GFR estimated refere nce range: According to KDOQI guidelines, <60 ml/min/1.73m2 is sufficient to diagnose a patient with chronic kidney disease. Pharmacy Creatinine Clearance (Chem 59.45 [facility] Platelet mean volume Auto (B ld) [Entitic vol]Ordered By: Rodolfo Harley on 08-12-2022 Platelet mean volume (Bld) [Entitic vol] 7.9 fL 6.3-10.7 [facility] Platelets Auto (Bld) [#/Vol] Ordered By: Rodolfo Harley on 08-12-2022 Platelets (Bld) [#/Vol] 196 10*3/uL 150-450 [facility] RBC Auto (Bld) [#/Vol]Ordere d By: Rodolfo Harley on 08-12-2022 RBC (Bld) [#/Vol] 4.45 10*6/uL 3.60-5.00 [facility] Serum or plasma anion gap de terminationOrdered By: Rodolfo Harley on 08-12-2022 Anion gap [Moles/Vol] 7.5 mmol/L 6.0-15.0 [facility] Serum or plasma calcium dagoberto urement (mass/volume)Ordered By: Rodolfo Harley on 08-12-2022 Calcium [Mass/Vol] 8.7 mg/dL 8.2-10.2 [facility] Serum or plasma chloride anahy surement (moles/volume)Ordered By: Rodolfo Harley on 08-12-2022 Chloride [Moles/Vol] 108 mmol/L 95-114 [facility] Serum or plasma glucose dagoberto urement (mass/volume)Ordered By: Rodolfo Harley on 08-12-2022 Glucose [Mass/Vol] 133 mg/dL 70-100 [facility] Comment on above: ADA recommended refe rence rangeRandom Glucose Reference Range is dependent on time and content of last meal. Glucose of more than 200 mg/dL in a nonstressed, ambulatory subject supports the diagnosis of Diabetes Mellitus. Serum or plasma potassium me asurement (moles/volume)Ordered By: Rodolfo Harley on 08-12-2022 Potassium [Moles/Vol] 3.7 mmol/L 3.5-5.1 [facility] Serum or plasma sodium measu rement (moles/volume)Ordered By: Rodolfo Harley on 08-12-2022 Sodium [Moles/Vol] 139 mmol/L 136-146 [facility] Serum or plasma total carbon dioxide measurement (moles/volume)Ordered By: Rodolfo Harley on 08-12-2022 CO2 [Moles/Vol] 27.2 mmol/L 22.0-30.0 [facility] Serum or plasma urea nitroge n measurement (mass/volume)Ordered By: Rodolfo Harley on 08-12-2022 Urea nitrogen [Mass/Vol] 14 mg/dL 9-23 [facility] ABO and Rh group post transf usion reaction Nom (Bld)Ordered By: Rodolfo Harley on 08-10-2022 Microscopic observation Gram stain Nom (Unsp spec) [facility] AF[employer] cultureOrdered By: Sissy Harley on 08-10-2022 Mycobacterium sp identified Org specific cx Nom (Unsp spec) [facility] [employer] smearOrdered By: Rodolfo Harley on 08-10-2022 Microscopic observation Smear Nom (Unsp spec) [facility] Aerobic cultureOrdered By: Margie Harley on 08-10-2022 Bacteria identified Aer cx Nom (Unsp spec) No Growth 2 Days [facility] Anaerobic cultureOrdered By: Rodolfo Harley on 08-10-2022 Bacteria identified Anaer cx Nom (Unsp spec) No Anaerobes Isolated 3 Days [facility] Arterial blood standard base excess determination by calculationOrdered By: Rodolfo Harley on 08-10-2022 Base excess standard Calc (BldA) [Moles/Vol] 5 mmol/L -2-3 [facility] Blood carbon dioxide, total measurement by calculation (moles/volume)Ordered By: Rodolfo Harley on 08-10-2022 CO2 Calc (Bld) [Moles/Vol] 30 mmol/L 23-29 [facility] CT biopsyOrdered By: Rodolfo Harley on 08-10-2022 Hematocrit (Bld) [Volume fraction] 40.0 % 38.0-51.0 [facility] Fungal cultureOrdered By: Rolanda Harley on 08-10-2022 Fungus identified Cx Nom (Unsp spec) [facility] Glucose Glucometer (BldC) [M ass/Vol]Ordered By: Rodolfo Harley on 08-10-2022 Glucose [Mass/Vol] 126 mg/dL 70-105 [facility] Gram stain for investigation of transfusion reactionOrdered By: Rodolfo Harley on 08-10-2022 Microscopic observation Gram stain Nom (Unsp spec) [facility] Hemoglobin Calc (Bld) [Mass/ Vol]Ordered By: Rodolfo Harley on 08-10-2022 Hemoglobin (Bld) [Mass/Vol] 13.6 g/dL 12.0-17.0 [facility] Monocyte %Ordered By: Jean Harley on 08-10-2022 Monocyte % 39.9 mm[Hg] 35-51 [facility] Monocyte % 45 mm[Hg] 80-105 [facility] No Panel InformationOrdered By: Rodlofo Harley on 08-10-2022 Chlamydia psittaci Antibodies <1:10 Neg:<1:10 [facility] Comment on above: This test was develo ped and its performance characteristicsdetermined by [employer]. It has not been cleared or approvedby the Food and Drug Administration. The FDA hasdetermined that such clearance or approval is notnecessary.Performed at: [address] [id number] Director: Shelly Vargas MD, Phone: [phone] Potassium (Bld) [Moles/Vol]O rdered By: Rodolfo Harley on 08-10-2022 Potassium [Moles/Vol] 3.8 mmol/L 3.5-4.9 [facility] Sodium (Bld) [Moles/Vol]Orde red By: Rodolfo Harley on 08-10-2022 Sodium [Moles/Vol] 141 mmol/L 138-146 [facility] Whole blood bicarbonate dagoberto urementOrdered By: Rodolfo Harley on 08-10-2022 HCO3 (Bld) [Moles/Vol] 29.1 mmol/L 22.0-28.0 [facility] Whole blood ionized calcium measurement (moles/volume)Ordered By: Rodolfo Harley on 08-10-2022 Calcium.ionized (Bld) [Moles/Vol] 1280 mmol/L 1.12-1.32 [facility] Whole blood oxygen saturatio n measurementOrdered By: Rodolfo Harley on 08-10-2022 Oxygen saturation in Blood 84 % 95-98 [facility] Comment on above: Reference ranges ref lect baseline specimens only Whole blood pHOrdered By: Rolanda Harley on 08-10-2022 pH (Bld) 7.470 Units 7.31-7.45 [facility] Urine culture routineOrdered By: Rodolfo Harley on 08-07-2022 Bacteria identified Cx Nom (U) 2 Days [facility] Activated partial thrombopla stin time (aPTT) in platelet poor plasma by coagulation aOrdered By: Rodolfo Harley on 08-05-2022 aPTT Coag (PPP) [Time] 35.9 s 25.1-36.5 [facility] Basophils Auto (Bld) [#/Vol] Ordered By: Rodolfo Harley on 08-05-2022 Basophils (Bld) [#/Vol] 0.0 10*3/uL 0.0-0.2 [facility] Basophils/100 WBC Auto (Bld) Ordered By: Rodolfo Harley on 08-05-2022 Basophils/100 WBC (Bld) 0.5 % . [facility] Body fluid albumin measureme nt (mass/volume)Ordered By: Rodolfo Harley on 08-05-2022 Albumin (Body fld) [Mass/Vol] 3.8 g/dL 3.2-5.5 [facility] COVID-19 Positive/NegativeOr dered By: Rodolfo Harley on 08-05-2022 SARS-CoV-2 (COVID-19) N gene PAVAN+probe Ql (Resp) Negative Negative [facility] Comment on above: Testing for SARS-CoV -2 by RT-PCRThis test was developed and its performance characteristics determined by [employer] and validated at the [facility]. This test has not been [...] on 08-05-2022 Creatinine [Mass/Vol] 0.97 mg/dL 0.44-1.03 [facility] Eosinophils Auto (Bld) [#/Vo l]Ordered By: Rodolfo Harley on 08-05-2022 Eosinophils (Bld) [#/Vol] 0.2 10*3/uL 0.0-0.45 [facility] Eosinophils/100 WBC Auto (Bl d)Ordered By: Rodolfo Harley on 08-05-2022 Eosinophils/100 WBC (Bld) 4.9 % . [facility] Erythrocyte distribution wid th Auto (RBC) [Ratio]Ordered By: Rodolfo Harley on 08-05-2022 Erythrocyte distribution width (RBC) [Ratio] 14.5 % 11.9-15.3 [facility] Estimated glomerular filtrat ion rate (GFR) non- AmericanOrdered By: Rodolfo Harley on 08-05-2022 GFR/1.73 sq M.predicted among non-blacks MDRD (S/P/Bld) [Vol rate/Area] 59 mL/Min [facility] FUNGAL CULTUREon 08-05-2022 Fungus (Mycology) Culture Final report Abnormal [facility] Comment on above: Performed By: #### C XFUN ####[facility] [address] [place] [address]Dr. Shahbaz Rogel Fungus Stain Final report Normal [facility] Comment on above: Performed By: #### C XFUN ####[facility] [address] [place] [address]Dr. Shahbaz Rogel Result 1 Comment Abnormal [facility] Comment on above: Result Comment: MILADYS/ Calcofluor preparation: no fungus observed. Performed By: #### C XFUN ####[facility] [address] [place] [address]Dr. Shahbaz Rogel Result Comment: Aspe rgillus versicolor Result 2 Penicillium species Abnormal [facility] Comment on above: Performed By: #### C XFUN ####[facility] [address]uy[address] [place] [address]Dr. Shahbaz Rogel Globulin Calc (S) [Mass/Vol] Ordered By: Rodolfo Harley on 08-05-2022 Globulin (S) [Mass/Vol] 2.9 g/dL [facility] Hematocrit Auto (Bld) [Volum e fraction]Ordered By: Rodolfo Harley on 08-05-2022 Hematocrit (Bld) [Volume fraction] 43.3 % 34.0-46.4 [facility] Hemoglobin [Mass/volume] in BloodOrdered By: Rodolfo Harley on 08-05-2022 Hemoglobin (Bld) [Mass/Vol] 14.3 g/dL 11.8-15.4 [facility] Laboratory - CoagulationOrde red By: Rodolfo Harley on 08-05-2022 PT Coag (PPP) [Time] 12.4 s 9.0-12.9 [facility] Laboratory - Hematology and Cell countsOrdered By: Rodolfo Harley on 08-05-2022 Nucleated RBC/100 WBC (Bld) [Ratio] 0.0 % 0-0.5 [facility] Leukocytes [#/volume] in Blo od by Automated countOrdered By: Rodolfo Harley on 08-05-2022 WBC (Bld) [#/Vol] 3.4 10*3/uL 4.5-11.0 [facility] Lymphocytes Auto (Bld) [#/Vo l]Ordered By: Rodolfo Harley on 08-05-2022 Lymphocytes (Bld) [#/Vol] 0.9 10*3/uL 1.00-4.8 [facility] Lymphocytes/100 WBC Auto (Bl d)Ordered By: Rodolfo Harley on 08-05-2022 Lymphocytes/100 WBC (Bld) 27.2 % . [facility] MCH Auto (RBC) [Entitic mass ]Ordered By: Rodolfo Harley on 08-05-2022 MCH (RBC) [Entitic mass] 28.4 pg 24.7-34.3 [facility] MCHC Auto (RBC) [Mass/Vol]Or dered By: Rodolfo Harley on 08-05-2022 MCHC (RBC) [Mass/Vol] 33.1 g/dL 32.0-35.0 [facility] MCV Auto (RBC) [Entitic vol] Ordered By: Rodolfo Harley on 08-05-2022 MCV (RBC) [Entitic vol] 85.9 fL 80-100 [facility] Monocytes Auto (Bld) [#/Vol] Ordered By: Rodolfo Harley on 08-05-2022 Monocytes (Bld) [#/Vol] 0.3 10*3/uL 0.0-0.8 [facility] Monocytes/100 WBC Auto (Bld) Ordered By: Rodolfo Harley on 08-05-2022 Monocytes/100 WBC (Bld) 7.5 % . [facility] Neutrophils Auto (Bld) [#/Vo l]Ordered By: Rodolfo Harley on 08-05-2022 Neutrophils (Bld) [#/Vol] 2.0 10*3/uL 1.8-7.7 [facility] Neutrophils/100 WBC Auto (Bl d)Ordered By: Rodolfo Harley on 08-05-2022 Neutrophils/100 WBC (Bld) 59.9 % . [facility] No Panel InformationOrdered By: Rodolfo Harley on 08-05-2022 Estimated GFR () > 60 mL/Min [facility] Comment on above: GFR estimated refere nce range: According to KDOQI guidelines, <60 ml/min/1.73m2 is sufficient to diagnose a patient with chronic kidney disease. Pharmacy Creatinine Clearance (Chem N/A [facility] Platelet mean volume Auto (B ld) [Entitic vol]Ordered By: Rodolfo Harley on 08-05-2022 Platelet mean volume (Bld) [Entitic vol] 8.1 fL 6.3-10.7 [facility] Platelet poor plasma interna tional normalized ratio (INR) by coagulation assay (relatOrdered By: Rodolfo Harley on 08-05-2022 INR Coag (PPP) [Relative time] 1.1 {INR} [facility] Comment on above: INR Therapeutic [...] 08-05-2022 Platelets (Bld) [#/Vol] 243 10*3/uL 150-450 [facility] Protein [Mass/volume] in Ser um or PlasmaOrdered By: Rodolfo Harley on 08-05-2022 Protein [Mass/Vol] 6.7 g/dL 6.1-7.9 [facility] RBC Auto (Bld) [#/Vol]Ordere d By: Rodolfo Harley on 08-05-2022 RBC (Bld) [#/Vol] 5.04 10*6/uL 3.60-5.00 [facility] Serum or plasma alanine snyder otransferase measurement without P-5'-P (enzymatic activiOrdered By: Rodolfo Harley on 08-05-2022 ALT No additional P-5'-P [Catalytic activity/Vol] 14 U/L 10-60 [facility] Serum or plasma albumin/glob ulin mass ratioOrdered By: Rodolfo Harley on 08-05-2022 Albumin/Globulin [Mass ratio] 1.3 {ratio} [facility] Serum or plasma alkaline sruthi sphatase measurement (enzymatic activity/volume)Ordered By: Rodolfo Harley on 08-05-2022 ALP [Catalytic activity/Vol] 91 U/L 32-92 [facility] Serum or plasma anion gap de terminationOrdered By: Rodolfo Harley on 08-05-2022 Anion gap [Moles/Vol] 14.3 mmol/L 6.0-15.0 [facility] Serum or plasma aspartate am inotransferase measurement (enzymatic activity/volume)Ordered By: Rodolfo Harley on 08-05-2022 AST [Catalytic activity/Vol] 21 U/L 10-42 [facility] Serum or plasma calcium dagoberto urement (mass/volume)Ordered By: Rodolfo Harley on 08-05-2022 Calcium [Mass/Vol] 9.5 mg/dL 8.2-10.2 [facility] Serum or plasma chloride anahy surement (moles/volume)Ordered By: Rodolfo Harley on 08-05-2022 Chloride [Moles/Vol] 102 mmol/L 95-114 [facility] Serum or plasma glucose dagoberto urement (mass/volume)Ordered By: Rodolfo Harley on 08-05-2022 Glucose [Mass/Vol] 76 mg/dL 70-100 [facility] Comment on above: ADA recommended refe rence rangeRandom Glucose Reference Range is dependent on time and content of last meal. Glucose of more than 200 mg/dL in a nonstressed, ambulatory subject supports the diagnosis of Diabetes Mellitus. Serum or plasma potassium me asurement (moles/volume)Ordered By: Rodolfo Harley on 08-05-2022 Potassium [Moles/Vol] 3.8 mmol/L 3.5-5.1 [facility] Serum or plasma sodium measu rement (moles/volume)Ordered By: Rodolfo Harley on 08-05-2022 Sodium [Moles/Vol] 138 mmol/L 136-146 [facility] Serum or plasma total biliru bin measurement (mass/volume)Ordered By: Rodolfo Harley on 08-05-2022 Bilirubin [Mass/Vol] 0.7 mg/dL 0.3-1.2 [facility] Serum or plasma total carbon dioxide measurement (moles/volume)Ordered By: Rodolfo Harley on 08-05-2022 CO2 [Moles/Vol] 25.5 mmol/L 22.0-30.0 [facility] Serum or plasma urea nitroge n measurement (mass/volume)Ordered By: Rodolfo Harley on 08-05-2022 Urea nitrogen [Mass/Vol] 12 mg/dL - [facility] Urine culture routineOrdered By: Rodolfo Harley on 08-05-2022 Bacteria identified Cx Nom (U) 2 Days [facility] XR ANKLE LT MIN 3 Von 2021 XR ANKLE LT MIN 3 V Normal [facility] BNPon 07-06-2022 Natriuretic peptide B (Bld) [Mass/Vol] 843.0 pg/mL Normal <=900.0 [facility] Comment on above: Performed By: #### B TELEVISION NEWS REPORTER, CRP, CMP ####[facility] Hrkbkrithe[address] [place] [address]Dr. Shahbaz Rogel CBC W MANUAL DIFFon 07-06-20 22 ATYPICAL LYMPH # Normal [facility] Comment on above: Performed By: #### C CAIN ####[facility] Fkdcnoukjm6[address] [place] [phone]. Shahbaz Rogel ATYPICAL LYMPH % Normal [facility] Comment on above: Performed By: #### C BCBRICE ####[facility] Xrnqqqcbsf73[address] [place] [address]Dr. Shahbaz Rogel BAND # 0.0 103/ul Normal 0.0-0.3 [facility] Comment on above: Performed By: #### C CAIN ####[facility] Iywfrervzg57[address] [place] [address]Dr. Shahbaz Rogel BAND % 0 % Normal 0-5 [facility] Comment on above: Performed By: #### C BCMAN ####[facility] Uxldnbnjtm74[address] [place] [address]Dr. Shahbaz Rogel BASOM # 0.00 103/ul Normal 0.00-0.10 [facility] Comment on above: Performed By: #### C BCMAN ####[facility] Edavuktpch2452 [place] [address]Dr. Shahbaz Rogel BASOM % 0.0 % Critically low 0.2-2.0 [facility] Comment on above: Performed By: #### C BCMAN ####[facility] Hxghsyiqhh0205 [place] [address]Dr. Shahbaz Rogel BLAST # Normal [facility] Comment on above: Performed By: #### C BCBRICE ####[facility] Ipuppwssjp[address] [place], [place] [address]Dr. Shahbaz Rogel BLAST % Normal [facility] Comment on above: Performed By: #### C BCBRICE ####[facility] Ihdwkkopwi[address] [place], [place] [address]Dr. Shahbaz Rogel CORRECTED WBC Normal 4.0-11.0 [facility] Comment on above: Performed By: #### C BCMAN ####[facility] Saabxnhgkv[address] [place], [place] [address]Dr. Shahbaz Rogel EOS # 0.00 103/ul Normal 0.00-0.70 [facility] Comment on above: Performed By: #### C BCBRICE ####[facility] Zzokgdjzaa232[address] [place] [address]Dr. Shahbaz Rogel EOS% 0.0 % Critically low 0.9-7.0 [facility] Comment on above: Performed By: #### C BCMAN ####[facility] Lkknfhgfii0[address] [place], [place] [address]Dr. Shahbaz Rogel HCT 40.3 % Normal 36.0-48.0 [facility] Comment on above: Performed By: #### C BCBRICE ####[facility] Aovfsgkwvz[address] [place], [place] [address]Dr. Shahbaz Rogel HGB 12.7 g/dl Normal 12.0-16.0 [facility] Comment on above: Performed By: #### C CAIN ####[facility] Phnlzursua[address] [place] [address]Dr. Shahbaz Rogel LYMPHM # 0.41 103/ul Critically low 1.20-3.80 [facility] Comment on above: Performed By: #### C CAIN ####[facility] Edlwnfqzdm8504 [place] [address]Dr. Shahbaz Rogel LYMPHM% 7.0 % Critically low 20.5-60.0 [facility] Comment on above: Performed By: #### Cheri BARLOW ####[facility] Spymvkxfop30[address] [place] [address]Dr. Shahbaz Rogel MCH 28.0 pg Normal 26.7-34.0 [facility] Comment on above: Performed By: #### Cheri BARLOW ####[facility] Zyxwvypejq23[address] [place], [place] [address]Dr. Shahbaz Rogel MCHC 31.5 g/dl Normal 29.9-35.2 [facility] Comment on above: Performed By: #### Cheri BARLOW ####[facility] Ghijjsapxp7[address] [place] [address]Dr. Shahbaz Rogel MCV 89.0 fL Normal 81.0-99.0 [facility] Comment on above: Performed By: #### Cheri BARLOW ####[facility] Bnvrpetker[address] [place], [place] [address]Dr. Shahbaz Rogel METAMYELOCYTE # Normal [facility] Comment on above: Performed By: #### Cheri BARLOW ####[facility] Psdrxtbvpb1383 [place] [address]Dr. Shahbaz Rogel METAMYELOCYTE % Normal [facility] Comment on above: Performed By: #### C CAIN ####[facility] Vyfutjkvel5[address] [place] [address]Dr. Shahbaz Rogel MONOM# 0.00 103/ul Critically low 0.30-0.80 [facility] Comment on above: Performed By: #### C CAIN ####[facility] Dswmaigtpm2045 [place] [phone]. Shahbaz Rogel MONOM% 0.0 % Critically low 1.7-12.0 [facility] Comment on above: Performed By: #### C CAIN ####[facility] Rpqthnhwzn7065 [place] [phone]. Shahbaz Rogel MPV 9.8 fL Normal 9.5-13.5 [facility] Comment on above: Performed By: #### C CAIN ####[facility] Urvmdazgkd3887 [place] [phone]. Shahbaz Rogel MYELOCYTE # Normal [facility] Comment on above: Performed By: #### C CAIN ####[facility] Ypsodphste1737 [place] [phone]. Shahbaz Rogel MYELOCYTE % Normal [facility] Comment on above: Performed By: #### Cheri BARLOW ####[facility] Jaizehvlhe199[address] [place], [place] [address]Dr. Shahbaz Rogel NRBC Normal [facility] Comment on above: Performed By: #### C CAIN ####[facility] Pjfmrmgbpd9149 [place] [phone]. Shahbaz Rogel PLT 187 103/ul Normal 150-450 [facility] Comment on above: Performed By: #### C CAIN ####[facility] Kuntjjurdn2874 [place] [phone]. Shahbaz Rogel RBC 4.53 106/ul Normal 4.20-5.40 [facility] Comment on above: Performed By: #### C CAIN ####[facility] Clxajvwxjd0318 [place] [phone]. Shahbaz Rogel RDW 13.3 % Normal 11.0-15.0 [facility] Comment on above: Performed By: #### C CAIN ####[facility] Pwvfboajwp2262 [place] [phone]. Shahbaz Rogel SEG # 5.49 103/ul Normal 1.40-6.50 [facility] Comment on above: Performed By: #### C CAIN ####[facility] Iiaizxdrzq7175 [place] [address]Dr. Shahbaz Rogel SEG % 93.0 % Critically high 43.0-75.0 [facility] Comment on above: Performed By: #### C CAIN ####[facility] Duhlbgbxqk4476 [place] [address]Dr. Shahbaz Rogel WBC 5.9 103/ul Normal 4.0-11.0 [facility] Comment on above: Performed By: #### C CAIN ####[facility] Igqcnxvdji7050 [place] [address]Dr. Shahbaz Rogel CRPon 07-06-2022 CRP [Mass/Vol] mg/L Normal <=1.0 [facility] Comment on above: Performed By: #### B TELEVISION NEWS REPORTER, CRP, CMP ####[facility] Hwbeimtmms[address] [place], [place] [address]Dr. Shahbaz Rogel PROF 14(COMP METB)on 022 Albumin [Mass/Vol] 3.4 g/dL Normal 3.4-5.0 [facility] Comment on above: Performed By: #### B TELEVISION NEWS REPORTER, CRP, CMP ####[facility] Wdxdwetnhb[address] [place], [place] [address]Dr. Shahbaz Rogel Albumin/Globulin [Mass ratio] 1.0 {ratio} Normal [facility] Comment on above: Performed By: #### B TELEVISION NEWS REPORTER, CRP, CMP ####[facility] Vjurgbyduy20[address] [place], [place] [address]Dr. Shahbaz Rogel ALP [Catalytic activity/Vol] 92 U/L Normal 46-116 [facility] Comment on above: Performed By: #### B TELEVISION NEWS REPORTER, CRP, CMP ####[facility] Ovceahuwpe4467[address] [place], [place] [address]Dr. Shahbaz Rogel ALT [Catalytic activity/Vol] 21 U/L Normal 14-59 [facility] Comment on above: Performed By: #### B TELEVISION NEWS REPORTER, CRP, CMP ####[facility] Rkphbkcsdt30[address] [place], [place] [address]Dr. Shahbaz Rogel Anion gap [Moles/Vol] 13.4 mmol/L Normal [facility] Comment on above: Performed By: #### B TELEVISION NEWS REPORTER, CRP, CMP ####[facility] Pykwcbvbai674[address] [place], [place] [address]Dr. Shahbaz Rogel AST [Catalytic activity/Vol] 16 U/L Normal 15-37 [facility] Comment on above: Performed By: #### B TELEVISION NEWS REPORTER, CRP, CMP ####[facility] Nhpgcrusrm704[address] [place], [place] [address]Dr. Shahbaz Rogel Bilirubin [Mass/Vol] 0.2 mg/dL Normal 0.2-1.0 [facility] Comment on above: Performed By: #### B TELEVISION NEWS REPORTER, CRP, CMP ####[facility] Ueetvxnglm2155[address] [place], [place] [address]Dr. Shahbaz Rogel Calcium [Mass/Vol] 9.3 mg/dL Normal 8.5-10.1 [facility] Comment on above: Performed By: #### B TELEVISION NEWS REPORTER, CRP, CMP ####[facility] Pyzgvzvbco3935[address] [place], [place] [address]Dr. Shahbaz Rogel Chloride [Moles/Vol] 105 mmol/L Normal 98-107 [facility] Comment on above: Performed By: #### B TELEVISION NEWS REPORTER, CRP, CMP ####[facility] Aufjsxpqpw35[address] [place], [place] [address]Dr. Shahbaz Rogel CO2 [Moles/Vol] 23.2 mmol/L Normal 21.0-32.0 [facility] Comment on above: Performed By: #### B TELEVISION NEWS REPORTER, CRP, CMP ####[facility] Kmhuifgabi[address] [place], [place] [address]Dr. Shahbaz Rogel Creatinine [Mass/Vol] 1.23 mg/dL Critically high 0.55-1.02 [facility] Comment on above: Performed By: #### B TELEVISION NEWS REPORTER, CRP, CMP ####[facility] Nblqzweozb66[address] [place], [place] [address]Dr. Shahbaz Rogel EGFR-AF JORDANIAN 55 mL/min/1.73m2 Critically low >=60 [facility] Comment on above: Performed By: #### B TELEVISION NEWS REPORTER, CRP, CMP ####[facility] Mhnfgraure[address] [place] [address]Dr. Shahbaz Rogel EGFR-NON AF JORDANIAN 45 mL/min/1.73m2 Critically low >=60 [facility] Comment on above: Performed By: #### B TELEVISION NEWS REPORTER, CRP, CMP ####[facility] Wltagyupnx6452 [place] [address]Dr. Shahbaz Rogel Globulin (S) [Mass/Vol] 3.3 g/dL Normal [facility] Comment on above: Performed By: #### B TELEVISION NEWS REPORTER, CRP, CMP ####[facility] Mcgtqocdtg9430 [place] [address]Dr. Shahbaz Rogel Glucose [Mass/Vol] 171 mg/dL Critically high 74-106 [facility] Comment on above: Performed By: #### B TELEVISION NEWS REPORTER, CRP, CMP ####[facility] Qjhjtygkfi4947 [place] [address]Dr. Shahbaz Rogel Potassium [Moles/Vol] 3.6 mmol/L Normal 3.5-5.1 [facility] Comment on above: Performed By: #### B TELEVISION NEWS REPORTER, CRP, CMP ####[facility] Vomwbudkra5[address] [place], [place] [address]Dr. Shahbaz Rogel Protein [Mass/Vol] 6.7 g/dL Normal 6.4-8.2 [facility] Comment on above: Performed By: #### B TELEVISION NEWS REPORTER, CRP, CMP ####[facility] Xtywtnowil5638 [place] [address]Dr. Shahbaz Rogel Sodium [Moles/Vol] 138 mmol/L Normal 136-145 [facility] Comment on above: Performed By: #### B TELEVISION NEWS REPORTER, CRP, CMP ####[facility] Jsopdhbczu4468 [place] [address]Dr. Shahbaz Rogel Urea nitrogen [Mass/Vol] 21.0 mg/dL Critically high 7.0-18.0 [facility] Comment on above: Performed By: #### B TELEVISION NEWS REPORTER, CRP, CMP ####[facility] Uklissinwn98[address] [place] [address]Dr. Shahbaz Rogel Urea nitrogen/Creatinine [Mass ratio] 17.1 mg/mg Normal [facility] Comment on above: Performed By: #### B TELEVISION NEWS REPORTER, CRP, CMP ####[facility] Mxqiltdljy76[address] [place] [address]Dr. Shahbaz Rogel XR CHEST 2 Von 07-06-2022 XR CHEST 2 V Normal [facility] BNPon 07-05-2022 Natriuretic peptide B (Bld) [Mass/Vol] 83.0 pg/mL Normal <=900.0 [facility] Comment on above: Performed By: #### C RP, CMP, BNP ####[facility] Xwuiqnzeyz[address] [place], [place] [address]Dr. Shahbaz Rogel CBC AUTO DIFFon 07-05-2022 BASO # 0.0 103/ul Normal 0.0-0.1 [facility] Comment on above: Performed By: #### C BC ####[facility] Rzmxtujulg[address] [place], [place] [address]Dr. Shahbaz Rogel Basophils/100 WBC (Bld) 0.4 % Normal 0.2-2.0 [facility] Comment on above: Performed By: #### C BC ####[facility] Cpincqxnoe[address] [place], [place] [address]Dr. Shahbaz Rogel EO # 0.1 103/ul Normal 0.0-0.7 [facility] Comment on above: Performed By: #### C BC ####[facility] Ahktvugntx61[address] [place], [place] [address]Dr. Shahbaz Rogel Eosinophils/100 WBC (Bld) 2.9 % Normal 0.9-7.0 [facility] Comment on above: Performed By: #### C BC ####[facility] Qnjkxwfsqa57[address] [place], [place] [address]Dr. Shahbaz Rogel Erythrocyte distribution width (RBC) [Ratio] 13.4 % Normal 11.0-15.0 [facility] Comment on above: Performed By: #### C BC ####[facility] Gazurshhnb69[address] [place], [place] [address]Dr. Shahbaz Rogel Hematocrit (Bld) [Volume fraction] 41.7 % Normal 36.0-48.0 [facility] Comment on above: Performed By: #### C BC ####[facility] Gwguydsxpj5724 [place] [phone]. Shahbaz Rogel Hemoglobin (Bld) [Mass/Vol] 12.9 g/dL Normal 12.0-16.0 [facility] Comment on above: Performed By: #### C BC ####[facility] Disevqdnql8477 [place] [phone]. Shahbaz Rogel IG # 0.00 10e3/ul Normal 0.00-0.03 [facility] Comment on above: Performed By: #### C BC ####[facility] Rcmgprdftl6181 [place] [address]Dr. Shahbaz Rogel IG % 0.0 % Normal 0.0-0.5 [facility] Comment on above: Performed By: #### C BC ####[facility] Pxoykbgpqi086[address] [place], [place] [address]Dr. Shahbaz Rogel LYMPH # 1.5 103/ul Normal 1.2-3.8 [facility] Comment on above: Performed By: #### C BC ####[facility] Vitvixfgmz3060 [place] [address]Dr. Shahbaz Rogel Lymphocytes/100 WBC (Bld) 32.9 % Normal 20.5-60.0 [facility] Comment on above: Performed By: #### C BC ####[facility] Jwjsozvtuk7205 [place] [address]Dr. Shahbaz Rogel MANUAL DIFF REQ NO Normal [facility] Comment on above: Performed By: #### C BC ####[facility] Orrktxyfms7517 [place] [phone]. Shahbaz Rogel MCH (RBC) [Entitic mass] 28.0 pg Normal 26.7-34.0 [facility] Comment on above: Performed By: #### C BC ####[facility] Wftkgnhzcg7752 [place] [phone]. Shahbaz Juan F MCHC (RBC) [Mass/Vol] 30.9 g/dL Normal 29.9-35.2 [facility] Comment on above: Performed By: #### C BC ####[facility] Cszoxruakn4513 [place] [phone]. Shahbaz Rogel MCV (RBC) [Entitic vol] 90.5 fL Normal 81.0-99.0 [facility] Comment on above: Performed By: #### C BC ####[facility] Xmjgqclhqx8143 [place] [phone]. Shahbaz Rogel MONO # 0.4 103/ul Normal 0.3-0.8 [facility] Comment on above: Performed By: #### C BC ####[facility] Mnllubhbea7559 [place] [phone]. Shahbaz Juan F Monocytes/100 WBC (Bld) 8.0 % Normal 1.7-12.0 [facility] Comment on above: Performed By: #### C BC ####[facility] Yghwezfgdf[address] [place], [place] [address]Dr. Shahbaz Rogel NEUT # 2.5 103/ul Normal 1.4-6.5 [facility] Comment on above: Performed By: #### C BC ####[facility] Iugrbndkwe[address] [place], [place] [phone]. Shahbaz Juan F Neutrophils/100 WBC (Bld) 55.8 % Normal 43.0-75.0 [facility] Comment on above: Performed By: #### C BC ####[facility] Qrrkaenrla[address] [place], [place] [phone]. Shahbaz Juan F Platelet mean volume (Bld) [Entitic vol] 9.7 fL Normal 9.5-13.5 [facility] Comment on above: Performed By: #### C BC ####[facility] Levrbraabn[address] [place], [place] [phone]. Shahbaz Juan F PLT 158 103/ul Normal 150-450 [facility] Comment on above: Performed By: #### C BC ####[facility] Leknsicjwa8241 [place] [phone]. Shahbaz Rogel RBC 4.61 106/ul Normal 4.20-5.40 [facility] Comment on above: Performed By: #### C BC ####[facility] Vnxjpsfflq5289 [place] [address]Dr. Lilajarrod Juan F WBC 4.5 103/ul Normal 4.0-11.0 [facility] Comment on above: Performed By: #### C BC ####[facility] Tgefbyilmn0936 [place] [address]Dr. Lilajarrod Rogel CRPon 07-05-2022 CRP [Mass/Vol] mg/L Normal <=1.0 [facility] Comment on above: Performed By: #### C RP, CMP, BNP ####[facility] Nvkyehvtfg0099 [place] [address]Dr. Shahbaz Rogel ECHO LIMITED STUDYon ECHO LIMITED STUDY Normal [facility] PROF 14(COMP METB)on Albumin [Mass/Vol] 3.2 g/dL Critically low 3.4-5.0 [facility] Comment on above: Performed By: #### C RP, CMP, BNP ####[facility] Uvgfozubpi0170 [place] [address]Dr. Shahbaz Rogel Albumin/Globulin [Mass ratio] 1.0 {ratio} Normal [facility] Comment on above: Performed By: #### C RP, CMP, BNP ####[facility] Wlwgfobajz5915 [place] [address]Dr. Shahbaz Rogel ALP [Catalytic activity/Vol] 88 U/L Normal 46-116 [facility] Comment on above: Performed By: #### C RP, CMP, BNP ####[facility] Biipaeuzez1320 [place] [address]Dr. Shahbaz Rogel ALT [Catalytic activity/Vol] 17 U/L Normal 14-59 [facility] Comment on above: Performed By: #### C RP, CMP, BNP ####[facility] Qoshpyerse2336 [place] [address]Dr. Shahbaz Rogel Anion gap [Moles/Vol] 12.5 mmol/L Normal [facility] Comment on above: Performed By: #### C RP, CMP, BNP ####[facility] Znqinqnjvj[address] [place], [place] [address]Dr. Shahbaz Rogel AST [Catalytic activity/Vol] 18 U/L Normal 15-37 [facility] Comment on above: Performed By: #### C RP, CMP, BNP ####[facility] Whiczzpxun8488[address] [place], [place] [address]Dr. Shahbaz Rogel Bilirubin [Mass/Vol] 0.3 mg/dL Normal 0.2-1.0 [facility] Comment on above: Performed By: #### C RP, CMP, BNP ####[facility] Iiqpbkgryr7[address] [place], [place] [address]Dr. Shahbaz Rogel Calcium [Mass/Vol] 8.9 mg/dL Normal 8.5-10.1 [facility] Comment on above: Performed By: #### C RP, CMP, BNP ####[facility] Xlltnqvmab57[address] [place], [place] [address]Dr. Shahbaz Rogel Chloride [Moles/Vol] 103 mmol/L Normal 98-107 [facility] Comment on above: Performed By: #### C RP, CMP, BNP ####[facility] Izbjlixegy5[address] [place], [place] [address]Dr. Shahbaz Rogel CO2 [Moles/Vol] 28.1 mmol/L Normal 21.0-32.0 [facility] Comment on above: Performed By: #### C RP, CMP, BNP ####[facility] Yiqnxvukkv[address] [place], [place] [address]Dr. Shahbaz Rogel Creatinine [Mass/Vol] 1.24 mg/dL Critically high 0.55-1.02 [facility] Comment on above: Performed By: #### C RP, CMP, BNP ####[facility] Shjwqzrnzp2[address] [place], [place] [address]Dr. Shahbaz Rogel EGFR-AF JORDANIAN 54 mL/min/1.73m2 Critically low >=60 [facility] Comment on above: Performed By: #### C RP, CMP, BNP ####[facility] Czcfbjskmp94[address] [place], [place] [address]Dr. Shahbaz Rogel EGFR-NON AF JORDANIAN 45 mL/min/1.73m2 Critically low >=60 [facility] Comment on above: Performed By: #### C RP, CMP, BNP ####[facility] Uxtlbwzyou0966 [place] [address]Dr. Shahbaz Rogel Globulin (S) [Mass/Vol] 3.1 g/dL Normal [facility] Comment on above: Performed By: #### C RP, CMP, BNP ####[facility] Zjbsgdawvt2961 [place] [address]Dr. Shahbaz Rogel Glucose [Mass/Vol] 115 mg/dL Critically high 74-106 [facility] Comment on above: Performed By: #### C RP, CMP, BNP ####[facility] Kyakqsjbkh4549 [place] [address]Dr. Shahbaz Rogel Potassium [Moles/Vol] 3.6 mmol/L Normal 3.5-5.1 [facility] Comment on above: Performed By: #### C RP, CMP, BNP ####[facility] Iqnsjdllkq[address] [place], [place] [address]Dr. Shahbaz Rogel Protein [Mass/Vol] 6.3 g/dL Critically low 6.4-8.[address] [facility] Comment on above: Performed By: #### C RP, CMP, BNP ####[facility] [address]ps[address] [place] [address]. Shahbaz Rogel Sodium [Moles/Vol] 140 mmol/L Normal 136-145 [facility] Comment on above: Performed By: #### C RP, CMP, BNP ####[facility] Lbzzkpgyfn3154 [place] [address]Dr. Shahbaz Rogel Urea nitrogen [Mass/Vol] 18.0 mg/dL Normal 7.0-18.0 [facility] Comment on above: Performed By: #### C RP, CMP, BNP ####[facility] Tnvtwsokwk2374 [place] [address]Dr. Shahbaz Rogel Urea nitrogen/Creatinine [Mass ratio] 14.5 mg/mg Normal [facility] Comment on above: Performed By: #### C RP, CMP, BNP ####[facility] Ekpro[address] [place] [address]. Shahbaz Rogel T3, TOTAL (TRIIODOTHYRONINE) on 07-05-2022 T3, TOTAL 95 ng/dL Normal 71-180 [facility] Comment on above: Performed By: #### T 3TOTAL ####[facility] Cqxoltzsdu7556 [place] [address]Dr. Shahbaz Rogel CARDIAC ROSALINA 3-6on 2 CK [Catalytic activity/Vol] 78 U/L Normal 26-192 [facility] Comment on above: Performed By: #### C MREP ####[facility] Cevhqnoctu0110 [place] [phone]. Shahbaz Rogel CK.MB [Mass/Vol] 1.44 ng/mL Normal <=3.60 [facility] Comment on above: Performed By: #### C MREP ####[facility] Xwkdvawqpd[address] [place], [place] [address]Dr. Shahbaz Rogel HSTROP 9.0 pg/mL Normal 4.0-51.3 [facility] Comment on above: Result Comment: CUT- OFF POINTS HAVE BEEN ESTABLISHED BASED ON THE FOURTH UNIVERSAL DEFINITIONS OF MYOCARDIALINFARCTION. THE UPPER REFERENCE LIMIT (URL) OF TROPONIN, DEFINED THE 99TH PERCENTILE OFcTnI DISTRIBUTION IN A REFERENCE POPULATION, HAS BEEN CONFIRMED THE DECISION THRESHOLDFOR [place] DIAGNOSIS. Performed By: #### C MREP ####[facility] Mrpaqprkvf17[address] [place] [address]Dr. Shahbaz Rogel CK [Catalytic activity/Vol] 88 U/L Normal 26-192 [facility] Comment on above: Performed By: #### C MREP ####[facility] Ldkqhkfhmd5317 [place] [phone]. Shahbaz Rogel CK.MB [Mass/Vol] 1.38 ng/mL Normal <=3.60 [facility] Comment on above: Performed By: #### C MREP ####[facility] [address] [place], [place] [phone]. Shahbaz Rogel HSTROP 7.0 pg/mL Normal 4.0-51.3 [facility] Comment on above: Result Comment: CUT- OFF POINTS HAVE BEEN ESTABLISHED BASED ON THE FOURTH UNIVERSAL DEFINITIONS OF MYOCARDIALINFARCTION. THE UPPER REFERENCE LIMIT (URL) OF TROPONIN, DEFINED THE 99TH PERCENTILE OFcTnI DISTRIBUTION IN A REFERENCE POPULATION, HAS BEEN CONFIRMED THE DECISION THRESHOLDFOR [place] DIAGNOSIS. Performed By: #### C MREP ####[facility] Eibjquzxhg2519 [place] [phone]. Shahbaz Rogel CARDIAC ROSALINA ADMITon 022 CK [Catalytic activity/Vol] 87 U/L Normal 26-192 [facility] [facility] Comment on above: Performed By: #### C JACKSON, CMADM ####[facility] Bpmzbbfure[address] [place] [address]Dr. Shahbaz Rogel CK.MB [Mass/Vol] 1.80 ng/mL Normal <=3.60 [facility] Comment on above: Performed By: #### C JACKSON, CMADM ####[facility] Aspltjgfik7[address] [place], [place] [address]Dr. Shahbaz Rogel HSTROP 7.6 pg/mL Normal 4.0-51.3 [facility] Comment on above: Result Comment: CUT- OFF POINTS HAVE BEEN ESTABLISHED BASED ON THE FOURTH UNIVERSAL DEFINITIONS OF MYOCARDIALINFARCTION. THE UPPER REFERENCE LIMIT (URL) OF TROPONIN, DEFINED THE 99TH PERCENTILE OFcTnI DISTRIBUTION IN A REFERENCE POPULATION, HAS BEEN CONFIRMED THE DECISION THRESHOLDFOR [place] DIAGNOSIS. Performed By: #### C JACKSON, CMADM ####[facility] Njcqpmclhk[address] [place] [address]Dr. Shahbaz Rogel LEN 67 ng/mL Normal 9-82 [facility] Comment on above: Performed By: #### C JACKSON, CMADM ####[facility] Nivsrwknbk[address] [place] [phone]. Shahbaz Rogel CBC AUTO DIFFon 07-04-2022 BASO # 0.0 103/ul Normal 0.0-0.1 [facility] Comment on above: Performed By: #### C BC ####[facility] Donhdgkjns[address] [place] [address]Dr. Shahbaz Rogel Basophils/100 WBC (Bld) 0.7 % Normal 0.2-2.0 [facility] Comment on above: Performed By: #### C BC ####[facility] Lvteffjzbx7[address] [place] [phone]. Shahbaz Rogel EO # 0.1 103/ul Normal 0.0-0.7 [facility] Comment on above: Performed By: #### C BC ####[facility] Gvxsbnfryi[address] [place] [address]Dr. Shahbaz Rogel Eosinophils/100 WBC (Bld) 3.4 % Normal 0.9-7.0 [facility] Comment on above: Performed By: #### C BC ####[facility] Bzbfjsahuu6[address] [place], [place] [address]Dr. Shahbaz Rogel Erythrocyte distribution width (RBC) [Ratio] 13.3 % Normal 11.0-15.0 [facility] Comment on above: Performed By: #### C BC ####[facility] Jpeclprrdb32[address] [place], [place] [address]Dr. Shahbaz Rogel Hematocrit (Bld) [Volume fraction] 42.1 % Normal 36.0-48.0 [facility] Comment on above: Performed By: #### C BC ####[facility] Jdytuemrha[address] [place], [place] [address]Dr. Shahbaz Rogel Hemoglobin (Bld) [Mass/Vol] 13.3 g/dL Normal 12.0-16.0 [facility] Comment on above: Performed By: #### C BC ####[facility] Yaahyjwytg[address] [place], [place] [address]Dr. Shahbaz Rogel IG # 0.01 10e3/ul Normal 0.00-0.03 [facility] Comment on above: Performed By: #### C BC ####[facility] Smrisuzoul135[address] [place], [place] [address]Dr. Shahbaz Rogel IG % 0.3 % Normal 0.0-0.5 [facility] Comment on above: Performed By: #### C BC ####[facility] Fahcxhrnyq717[address] [place], [place] [address]Dr. Lilajarrod Rogel LYMPH # 1.0 103/ul Critically low 1.2-3.8 [facility] Comment on above: Performed By: #### C BC ####[facility] Fdimklbzym[address] [place] [phone]. Lilajarrod Rogel Lymphocytes/100 WBC (Bld) 35.6 % Normal 20.5-60.0 [facility] Comment on above: Performed By: #### C BC ####[facility] Xldioxkzpa3[address] [place] [phone]. Shahbaz Rogel MANUAL DIFF REQ NO Normal [facility] Comment on above: Performed By: #### C BC ####[facility] Urhmtbykne3[address] [place] [phone]. Shahbaz Rogel MCH (RBC) [Entitic mass] 27.9 pg Normal 26.7-34.0 [facility] Comment on above: Performed By: #### C BC ####[facility] Cdrgshrqro3837[address] [place], [place] [address]Dr. Shahbaz Rogel MCHC (RBC) [Mass/Vol] 31.6 g/dL Normal 29.9-35.2 [facility] Comment on above: Performed By: #### C BC ####[facility] Uclzdcvumh4[address] [place], [place] [address]Dr. Shabhaz Rogel MCV (RBC) [Entitic vol] 88.3 fL Normal 81.0-99.0 [facility] Comment on above: Performed By: #### C BC ####[facility] Ujouseigoi040[address] [place], [place] [address]Dr. Shahbaz Rogel MONO # 0.2 103/ul Critically low 0.3-0.8 [facility] Comment on above: Performed By: #### C BC ####[facility] Zbungibdgl832[address] [place], [place] [address]Dr. Shahbaz Rogel Monocytes/100 WBC (Bld) 7.9 % Normal 1.7-12.0 [facility] Comment on above: Performed By: #### C BC ####[facility] Jrdrkqnsrh334187 [address] [place], [place] [address]Dr. Shahbaz Rogel NEUT # 1.5 103/ul Normal 1.4-6.5 [facility] Comment on above: Performed By: #### C BC ####[facility] Kdhuhuagym[address] [place] [address]Dr. Shahbaz Rogel Neutrophils/100 WBC (Bld) 52.1 % Normal 43.0-75.0 [facility] Comment on above: Performed By: #### C BC ####[facility] Fbijyzdocj05[address] [place], [place] [address]Dr. Shahbaz Rogel Platelet mean volume (Bld) [Entitic vol] 9.5 fL Normal 9.5-13.5 [facility] Comment on above: Performed By: #### C BC ####[facility] Ehgxsolvnh716[address] [place], [place] [address]Dr. Shahbaz Rogel PLT 172 103/ul Normal 150-450 [facility] Comment on above: Performed By: #### C BC ####[facility] Lxdtmpepsb038[address] [place], [place] [address]Dr. Shahbaz Rogel RBC 4.77 106/ul Normal 4.20-5.40 [facility] Comment on above: Performed By: #### C BC ####[facility] Misixtqrnp886[address] [place], [place] [address]Dr. Shahbaz Rogel WBC 2.9 103/ul Critically low 4.0-11.0 [facility] Comment on above: Performed By: #### C BC ####[facility] Icuonjbcpm859[address] [place], [place] [address]Dr. Shahbaz Rogel CELL COUNT BODY FLUIDon 10-0 BASOS Normal [facility] Comment on above: Performed By: #### B FCC ####[facility] Pawtxtbwii696[address] [place], [place] [address]Dr. Shahbaz Rogel Eosinophils/100 WBC (Bld) 4 % Normal [facility] Comment on above: Performed By: #### B FCC ####[facility] Kyhahjtbbf8416[address] [place], [place] [address]Dr. Shahbaz Rogel Lymphocytes/100 WBC (Bld) 12 % Normal [facility] Comment on above: Performed By: #### B FCC ####[facility] Exjccljjej2[address] [place], [place] [phone]. Shahbaz Rogel Monocytes/100 WBC (Bld) 4 % Normal [facility] Comment on above: Performed By: #### B FCC ####[facility] Aqugyvvkgv95[address] [place] [phone]. Shahbaz Rogel RBC 67 cubic mm Normal [facility] Comment on above: Performed By: #### B FCC ####[facility] Rfsyeksrhd57[address] [place] [address]Dr. Shahbaz Rogel SEGS 80 % Normal [facility] Comment on above: Performed By: #### B FCC ####[facility] Rrwkqkodkb5[address] [place], [place] [phone]. Shahbaz Rogel WBC BODY FLUID 223 cubic mm Normal [facility] Comment on above: Performed By: #### B FCC ####[facility] Wbjzfvyjzf34[address] [place], [place] [phone]. Shahbaz Rogel CULTURE OTHERon 07-04-2022 CULTURE OTHER Culture Observations : NO GROWTH AT 48 HOURS. Normal [facility] Comment on above: Performed By: #### O THCX ####[facility] Xrexyqduee[address] [place], [place] [phone]. Shahbaz Rogel CYTOLOGYon 07-04-2022 SENT TO REF LAB 07/04/22 Normal [facility] Comment on above: Performed By: #### C YTO ####[facility] Vphwebjxhf766[address] [place], [place] [address]Dr. Shahbaz Rogel Covid-19 PCR (CVDTB)on SARS-CoV-2 (COVID-19) RNA PAVAN+probe Ql (Unsp spec) Not detected Normal NOT DETECTED [facility] Comment on above: Result Comment: When [...] for this test is supported by the [place] of Health and Human Service's declaration that [...] be used). Performed By: #### C VDTBH ####[facility] Xoucacowwg[address] [place] [address]Dr. Shahbaz Rogel GRAM STAINon 07-04-2022 COMMENTS NO ORGANISMS OBSERVED Normal [facility] Comment on above: Performed By: #### G STAIN ####[facility] Xevphpzvkf3447[address] [place], [place] [address]Dr. Lilajarrod Juan F DIPHTHEROIDS Normal [facility] Comment on above: Performed By: #### G STAIN ####[facility] Bysseuihfo03[address] [place], [place] [address]Dr. Shahbaz Rogel EPITHELIALS Normal [facility] Comment on above: Performed By: #### G STAIN ####[facility] Fvphkiybny06[address] [place], [place] [address]Dr. Shahbaz Rogel FUNGAL ELEMENTS Normal [facility] Comment on above: Performed By: #### G STAIN ####[facility] Uakfjuzvhm[address] [place], [place] [address]Dr. Shahbaz Rogel GRAM NEG BACILLI Normal [facility] Comment on above: Performed By: #### G STAIN ####[facility] Jyyfwcjjuv[address] [place], [place] [address]Dr. Shahbaz Rogel GRAM NEG DIPPLOCOCCI Normal [facility] Comment on above: Performed By: #### G STAIN ####[facility] Slzwkorexv[address] [place], [place] [address]Dr. Shahbaz Rogel GRAM POS BACILLI Normal [facility] Comment on above: Performed By: #### G STAIN ####[facility] Uizjeyaprx2[address] [place], [place] [address]Dr. Shahbaz Rogel GRAM POSITIVE COCCI Normal [facility] Comment on above: Performed By: #### G STAIN ####[facility] Euhyjnellr[address] [place] [address]Dr. Shahbaz Rogel GRAM STAIN SOURCE Rt Lower Lobe Bronch ial Washing Normal [facility] Comment on above: Performed By: #### G STAIN ####[facility] Sbxoryxzvt8[address] [place] [address]Dr. Shahbaz Rogel GS_DIPTH Normal [facility] Comment on above: Performed By: #### G STAIN ####[facility] Mldwsngkdn[address] [place] [address]Dr. Shahbaz Rogel WBC RARE Normal [facility] Comment on above: Performed By: #### G STAIN ####[facility] Mudtvmqzhv[address] [place] [address]Dr. Shahbaz Rogel PROF 14(COMP METB)on 022 Albumin [Mass/Vol] 3.6 g/dL Normal 3.4-5.0 [facility] Comment on above: Performed By: #### C CINDY PAZ ####[facility] Jokuiaaode[address] [place], [place] [address]Dr. Shahbaz Rogel Albumin/Globulin [Mass ratio] 1.1 {ratio} Normal [facility] Comment on above: Performed By: #### C CINDY PAZ ####[facility] Tmybhgywmu329[address] [place], [place] [address]Dr. Shahbaz Rogel ALP [Catalytic activity/Vol] 102 U/L Normal 46-116 [facility] Comment on above: Performed By: #### C CINDY PAZ ####[facility] Piwpjciqrz[address] [place] [address]Dr. Shahbaz Rogel ALT [Catalytic activity/Vol] 19 U/L Normal 14-59 [facility] Comment on above: Performed By: #### C CINDY PAZ ####[facility] Vjyszishiu8[address] [place], [place] [address]Dr. Shahbaz Rogel Anion gap [Moles/Vol] 9.5 mmol/L Normal [facility] Comment on above: Performed By: #### C CINDY PAZ ####[facility] Adxidcmuza9[address] [place], [place] [address]Dr. Shahbaz Rogel AST [Catalytic activity/Vol] 19 U/L Normal 15-37 [facility] Comment on above: Performed By: #### C CINDY PAZ ####[facility] Ybonvuayve[address] [place] [address]Dr. Shahbaz Rogel Bilirubin [Mass/Vol] 0.3 mg/dL Normal 0.2-1.0 [facility] Comment on above: Performed By: #### C JACKSON, CNIDY ####[facility] Kwpzxeiuno[address] [place] [address]Dr. Shahbaz Rogel Calcium [Mass/Vol] 8.8 mg/dL Normal 8.5-10.1 [facility] Comment on above: Performed By: #### C CINDY PAZ ####[facility] Okncxiidwe[address] [place], [place] [address]Dr. Shahbaz Rogel Chloride [Moles/Vol] 107 mmol/L Normal 98-107 [facility] Comment on above: Performed By: #### C CINDY PAZ ####[facility] Txlajobwdy89[address] [place], [place] [address]Dr. Shahbaz Rogel CO2 [Moles/Vol] 29.5 mmol/L Normal 21.0-32.0 [facility] Comment on above: Performed By: #### C CINDY PAZ ####[facility] Boxokloskv7539[address] [place], [place] [address]Dr. Shahbaz Rogel Creatinine [Mass/Vol] 0.97 mg/dL Normal 0.55-1.02 [facility] Comment on above: Performed By: #### C CINDY PAZ ####[facility] Htdmkdyaca[address] [place], [place] [address]Dr. Shahbaz Rogel EGFR-AF JORDANIAN >60 Normal >=60 [facility] Comment on above: Performed By: #### C CINDY PAZ ####[facility] Fbriopcrmb46[address] [place], [place] [address]Dr. Shahbaz Rogel EGFR-NON AF JORDANIAN 59 mL/min/1.73m2 Critically low >=60 [facility] Comment on above: Performed By: #### C CINDY PAZ ####[facility] Egongxovpm4[address] [place] [phone]. Shahbaz Rogel Globulin (S) [Mass/Vol] 3.2 g/dL Normal [facility] Comment on above: Performed By: #### C JACKSON, CINDY ####[facility] Samxgznpwf0992 [place] [phone]. Shahbaz Rogel Glucose [Mass/Vol] 89 mg/dL Normal 74-106 [facility] Comment on above: Performed By: #### C JACKSON, CINDY ####[facility] Ekeqckrnnn35[address] [place] [address]Dr. Shahbaz Rogel Potassium [Moles/Vol] 4.0 mmol/L Normal 3.5-5.1 [facility] Comment on above: Performed By: #### C JACKSON, CINDY ####[facility] Vfdanrahlw8[address] [place] [address]Dr. Shahbaz Rogel Protein [Mass/Vol] 6.8 g/dL Normal 6.4-8.2 [facility] Comment on above: Performed By: #### C JACKSON, CINDY ####[facility] Vyqokurlpr[address] [place] [address]Dr. Shahbaz Rogel Sodium [Moles/Vol] 142 mmol/L Normal 136-145 [facility] Comment on above: Performed By: #### C JACKSON, CINDY ####[facility] Lgdmqlkvnu0[address] [place] [address]Dr. Shahbaz Rogel Urea nitrogen [Mass/Vol] 11.0 mg/dL Normal 7.0-18.0 [facility] Comment on above: Performed By: #### C JACKSON, CINDY ####[facility] Oxsmapfnsh65[address] [place] [address]Dr. Shahbaz Rogel Urea nitrogen/Creatinine [Mass ratio] 11.3 mg/mg Normal [facility] Comment on above: Performed By: #### C JACKOSN, CMADM ####[facility] Qogsdnyees00[address] [place], [place] [address]Dr. Shahbaz Rogel T4on 07-04-2022 T4 [Mass/Vol] 4.70 ug/dL Critically low 4.80-13.90 [facility] Comment on above: Performed By: #### T SH, T4 ####[facility] Mpcqfeuwwf8[address] [place] [phone]. Shahbaz Rogel TSHon 07-04-2022 TSH 0.359 uIU/mL Normal 0.358-3.74 0 [facility] Comment on above: Performed By: #### T SH, T4 ####[facility] Qjnpczuiws[address] [place] [address]Dr. Shahbaz Rogel XR CHEST 1 Von 07-04-2022 XR CHEST 1 V Normal [facility] XR CHEST 1 V Normal [facility] CHLAMYDIA PNEUMONIAE IgG IgM IgAon 06-27-2022 Chlamydia pneumoniae IgA <1:16 Normal Neg:<1:16 [facility] Comment on above: Performed By: #### C HLMPNE ####[facility] Yhzotnpurc[address] [place], [place] [address]Dr. jarrod Rogel Chlamydia pneumoniae IgG <1:16 Normal Neg:<1:16 [facility] Comment on above: Performed By: #### C HLMPNE ####[facility] Sfvjjuakie30[address] [place], [place] [address]Dr. [facility] Chlamydia pneumoniae IgM <1:10 Normal Neg:<1:10 [facility] Comment on above: Performed By: #### C HLMPNE ####[facility] Jjunwuleum[address] [place], [place] [address]Dr. Shahbaz Rogel Test Information: Comment Normal [facility] Comment on above: Result Comment: This [...] or procedure. Performed By: #### C HLMPNE ####[facility] Oyvbgjptpd40[address] [place], [place] [address]Dr. Shahbaz Rogel Covid-19 PCR (CVDTB)on 06-03 SARS-CoV-2 (COVID-19) RNA PAVAN+probe Ql (Unsp spec) Not detected Normal NOT DETECTED [facility] Comment on above: Result Comment: This test is not yet approved or cleared by the [place] FDA. When there are no FDA-approved or cleared tests available, and other criteria are met, FDA can make tests available under an emergency access mechanism called an Emergency Use Authorization (EUA). The EUA for this test is supported by the [employer] of Health and Human Service's (HHS's) declaration [...] with SARS-CoV-2. Performed By: #### C VDTBH ####[facility] Qibbfednzs13[address] [place], [place] [address]Dr. Shahbaz Rogel CYCLIC CITRULLINATED PEPTIDE AB (CCP)on 06-25-2022 CCP Antibodies IgG/IgA 13 units Normal 0-[address] [facility] Comment on above: Result Comment: Nega tive <20 Weak positive 20 - 39 Moderate positive 40 - 59 Strong positive >59 Performed By: #### C CPAB ####[facility] Hyrxbmekkc[address] [place] [address]Dr. Shahbaz Rogel ANTI NEUTROPHIL CYTOPLASMIC AB (ANCA) PRon 06-24-2022 Anti-MPO Antibodies <0.2 Normal 0.0-0.9 [facility] Comment on above: Result Comment: Perf ormed at: BN Performed By: #### A NCAP ####[facility] Arhdlisikg27[address] [place], [place] [address]Dr. Shahbaz Rogel Anti-PR3 Antibodies 5.0 units Critically high 0.0-0.9 [facility] Comment on above: Result Comment: Perf ormed at: BN Performed By: #### A NCAP ####[facility] Fstiiyxfwk299[address] [place] [address]Dr. Lilajarrod Juan F Atypical pANCA <1:20 Normal Neg:<1:20 [facility] Comment on above: Result Comment: The atypical pANCA pattern has been observed in a significantpercentage of patients with ulcerative colitis, primary sclerosingcholangitis and autoimmune hepatitis.Performed at: CB Performed By: #### A NCAP ####[facility] Kfgvvmksyy5[address] [place] [address]Dr. Shahbaz Rogel Cytoplasmic (C-ANCA) <1:20 Normal Neg:<1:20 [facility] Comment on above: Result Comment: Perf ormed at: CB Performed By: #### A NCAP ####[facility] Jaaambddle[address] [place] [address]Dr. Shahbaz Rogel Perinuclear (P-ANCA) 1:80 Critically high Neg:<1:20 [facility] Comment on above: Result Comment: The presence of positive fluorescence exhibiting P-ANCA or C-ANCApatterns alone is not specific for the diagnosis of Ada'sGranulomatosis (WG) or microscopic polyangiitis. Decisions abouttreatment should not be based solely on ANCA IFA results. TheInternational ANCA Group Consensus recommends follow up testing ofpositive sera with both KY-3 and MPO-ANCA enzyme immunoassays. Asmany as 5% serum samples are positive only by EIA.Ref. AM J Clin Pathol 1999;111:507-513.Performed at: CB Performed By: #### A NCAP ####[facility] Wdiaqihfca[address] [place] [address]Dr. Shahbaz Rogel ANTIGLOMERULAR BASEMENT MEMB ANTOINE ABSon 06-24-2022 Anti-GBM Antibodies <0.2 Normal 0.0-0.9 [facility] Comment on above: Performed By: #### A GBM ####[facility] Wvzqkhcwqb60[address] [place] [address]Dr. Shahbaz Rogel SHAHANA EIA W/REFLEX 5 BIOMARKER Son 06-23-2022 SHAHANA Direct Negative Normal Negative [facility] Comment on above: Performed By: #### A NARF ####[facility] Rocmvjdsoz[address] [place] [address]Dr. Lilajarrod Rogel ANTISCLERODERMA ABon 022 Antiscleroderma-70 Antibodies <0.2 Normal 0.0-0.9 [facility] Comment on above: Performed By: #### A NSCLER ####[facility] Dakbcojoqb8[address] [place], [place] [address]Dr. Shahbaz Rogel RHEUMATOID FACTORon 06-23-20 RA Latex Turbid. <10.0 Normal <14.0 [facility] Comment on above: Performed By: #### R F ####[facility] Svlrxakuvt[address] [place], [place] [address]Dr. Shahbaz Rogel CBC AUTO DIFFon 06-22-2022 BASO # 0.0 103/ul Normal 0.0-0.1 [facility] Comment on above: Performed By: #### C BC ####[facility] Wgueljpnou70[address] [place], [place] [address]Dr. Shahbaz Rogel Basophils/100 WBC (Bld) 0.5 % Normal 0.2-2.0 [facility] Comment on above: Performed By: #### C BC ####[facility] Fdonnncxvo7129[address] [place], [place] [address]Dr. Shahbaz Rogel EO # 0.1 103/ul Normal 0.0-0.7 [facility] Comment on above: Performed By: #### C BC ####[facility] Qwxrpbhchz85[address] [place], [place] [address]Dr. Shahbaz Rogel Eosinophils/100 WBC (Bld) 3.4 % Normal 0.9-7.0 [facility] Comment on above: Performed By: #### C BC ####[facility] Xkzxutibol04[address] [place], [place] [address]Dr. Shahbaz Rogel Erythrocyte distribution width (RBC) [Ratio] 13.2 % Normal 11.0-15.0 [facility] Comment on above: Performed By: #### C BC ####[facility] Dhtwmjezzy18[address] [place], [place] [address]Dr. Shahbaz Rogel Hematocrit (Bld) [Volume fraction] 45.6 % Normal 36.0-48.0 [facility] Comment on above: Performed By: #### C BC ####[facility] Asjhqjhxyl54[address] [place] [phone]. Shahbaz Rogel Hemoglobin (Bld) [Mass/Vol] 14.7 g/dL Normal 12.0-16.0 [facility] Comment on above: Performed By: #### C BC ####[facility] Wtfabzazrv8853 [place] [phone]. Shahbaz Rogel IG # 0.01 10e3/ul Normal 0.00-0.03 [facility] Comment on above: Performed By: #### C BC ####[facility] Rkwehplaba14[address] [place] [address]Dr. Shahbaz Juan F IG % 0.3 % Normal 0.0-0.5 [facility] Comment on above: Performed By: #### C BC ####[facility] Prceuczamf[address] [place], [place] [address]Dr. Shahbaz Juan F LYMPH # 1.0 103/ul Critically low 1.2-3.8 [facility] Comment on above: Performed By: #### C BC ####[facility] Jtryquejrm13[address] [place] [address]Dr. Shahbaz Juan F Lymphocytes/100 WBC (Bld) 25.7 % Normal 20.5-60.0 [facility] Comment on above: Performed By: #### C BC ####[facility] Wstogmszqh3[address] [place] [address]Dr. Shahbaz Juan F MANUAL DIFF REQ NO Normal [facility] Comment on above: Performed By: #### C BC ####[facility] Htinysedvk4842 [place] [phone]. Shahbaz Juan F MCH (RBC) [Entitic mass] 28.1 pg Normal 26.7-34.0 [facility] Comment on above: Performed By: #### C BC ####[facility] Pmipbddkqn9167 [place] [phone]. Shahbaz Juan F MCHC (RBC) [Mass/Vol] 32.2 g/dL Normal 29.9-35.2 [facility] Comment on above: Performed By: #### C BC ####[facility] Wbikxlukvv0583 [place] [phone]. Shahbaz Rogel MCV (RBC) [Entitic vol] 87.2 fL Normal 81.0-99.0 [facility] Comment on above: Performed By: #### C BC ####[facility] Qehfcdrdnk6672 [place] [phone]. Shahbaz Rogel MONO # 0.2 103/ul Critically low 0.3-0.8 [facility] Comment on above: Performed By: #### C BC ####[facility] Emnoabvuls29[address] [place] [phone]. Shahbaz Juan F Monocytes/100 WBC (Bld) 6.0 % Normal 1.7-12.0 [facility] Comment on above: Performed By: #### C BC ####[facility] Smjaxlbazi[address] [place], [place] [address]Dr. Shahbaz Rogel NEUT # 2.5 103/ul Normal 1.4-6.5 [facility] Comment on above: Performed By: #### C BC ####[facility] [address]ethsjygvi[address] [place], [place] [id number]. Shahbaz Juan F Neutrophils/100 WBC (Bld) 64.1 % Normal 43.0-75.0 [facility] Comment on above: Performed By: #### C BC ####[facility] Ewfptmbsye[address] [place], [place] [id number]. Shahbaz Juan F Platelet mean volume (Bld) [Entitic vol] 9.4 fL Critically low 9.5-13.5 [facility] Comment on above: Performed By: #### C BC ####[facility] Opqrnfqbfz3402 [place] [phone]. Shahbaz Juan F PLT 212 103/ul Normal 150-450 [facility] Comment on above: Performed By: #### C BC ####[facility] Pzymnmjgen[address] [place], [place] [id number]. Shahbaz Rogel RBC 5.23 106/ul Normal 4.20-5.40 [facility] Comment on above: Performed By: #### C BC ####[facility] Hgmxormdhm6[address] [place] [address]Dr. Lilajarrod Juan F WBC 3.9 103/ul Critically low 4.0-11.0 [facility] Comment on above: Performed By: #### C BC ####[facility] Oluozfbecx[address] [place] [address]Dr. Shahbaz Rogel PROF 14(COMP METB)on 022 Albumin [Mass/Vol] 4.1 g/dL Normal 3.4-5.0 [facility] Comment on above: Performed By: #### C MP ####[facility] Pgyucmcpgz7019 [place] [address]Dr. Shahbaz Rogel Albumin/Globulin [Mass ratio] 1.1 {ratio} Normal [facility] Comment on above: Performed By: #### C MP ####[facility] Emaxsuqaeu45[address] [place], [place] [address]Dr. Shahbaz Rogel ALP [Catalytic activity/Vol] 133 U/L Critically high 46-116 [facility] Comment on above: Performed By: #### C MP ####[facility] Vvbadgbacx50[address] [place], [place] [address]Dr. Lilajarrod Rogel ALT [Catalytic activity/Vol] 29 U/L Normal 14-59 [facility] Comment on above: Performed By: #### C MP ####[facility] Nnkosslfiz2834 [place] [address]Dr. Shahbaz Rogel Anion gap [Moles/Vol] 10.9 mmol/L Normal [facility] Comment on above: Performed By: #### C MP ####[facility] Vmfyddazxa3440 [place] [address]Dr. Shahbaz Rogel AST [Catalytic activity/Vol] 23 U/L Normal 15-37 [facility] Comment on above: Performed By: #### C MP ####[facility] Hcasvzsbjd523[address] [place], [place] [address]Dr. Shahbaz Rogel Bilirubin [Mass/Vol] 0.3 mg/dL Normal 0.2-1.0 [facility] Comment on above: Performed By: #### C MP ####[facility] Xowcqeewyz0442 [place] [address]Dr. Shahbaz Rogel Calcium [Mass/Vol] 9.1 mg/dL Normal 8.5-10.1 [facility] Comment on above: Performed By: #### C MP ####[facility] Rvvszxmpri85[address] [place] [address]Dr. Shahbaz Rogel Chloride [Moles/Vol] 103 mmol/L Normal 98-107 [facility] Comment on above: Performed By: #### C MP ####[facility] Ucdxpxkumd6411 [place] [address]Dr. Shahbaz Rogel CO2 [Moles/Vol] 30.8 mmol/L Normal 21.0-32.0 [facility] Comment on above: Performed By: #### C MP ####[facility] Spmpxiwynz9960[address] [place], [place] [address]Dr. Shahbaz Rogel Creatinine [Mass/Vol] 1.02 mg/dL Normal 0.55-1.02 [facility] Comment on above: Performed By: #### C MP ####[facility] Xrquexnceg711[address] [place], [place] [address]Dr. Shahbaz Rogel EGFR-AF JORDANIAN >60 Normal >=60 [facility] Comment on above: Performed By: #### C MP ####[facility] Ofdrucntdq1277[address] [place], [place] [address]Dr. Shahbaz Rogel EGFR-NON AF JORDANIAN 56 mL/min/1.73m2 Critically low >=60 [facility] Comment on above: Performed By: #### C MP ####[facility] Fjnhixhigr738[address] [place], [place] [address]Dr. Shahbaz Rogel Globulin (S) [Mass/Vol] 3.7 g/dL Normal [facility] Comment on above: Performed By: #### C MP ####[facility] Kfvyendcyo3826[address] [place], [place] [address]Dr. Shahbaz Rogel Glucose [Mass/Vol] 80 mg/dL Normal 74-106 [facility] Comment on above: Performed By: #### C MP ####[facility] Togivcqfqo60[address] [place] [phone]. Shahbaz Rogel Potassium [Moles/Vol] 3.7 mmol/L Normal 3.5-5.1 [facility] Comment on above: Performed By: #### C MP ####[facility] Hdpihjolbr0110 [place], [place] [address]Aj. Shahbaz Rogel Protein [Mass/Vol] 7.8 g/dL Normal 6.4-8.2 [facility] Comment on above: Performed By: #### C MP ####[facility] Ycjrcexcsv6945 [place] [phone]. Shahbaz Rogel Sodium [Moles/Vol] 141 mmol/L Normal 136-145 [facility] Comment on above: Performed By: #### C MP ####[facility] Gpbqbxemoa3129 [place] [phone]. Shahbaz Rogel Urea nitrogen [Mass/Vol] 10.0 mg/dL Normal 7.0-18.0 [facility] Comment on above: Performed By: #### C MP ####[facility] Tnudkwnohj2797 [place] [phone]. Shahbaz Rogel Urea nitrogen/Creatinine [Mass ratio] 9.8 mg/mg Normal [facility] Comment on above: Performed By: #### C MP ####[facility] Mccnbhijfq5201 [place] [phone]. Shahbaz Rogel SED RATE [facility] 2021 SED RATE 17 mm/hr Normal <=30 [facility] Comment on above: Performed By: #### S EDR ####[facility] Qtyxdjhffn0179 [place] [phone]. Shahbaz Rogel CT CHEST HI RESOLUTIONon CT CHEST HI RESOLUTION Normal [facility] XR ANKLE RT MIN 3 VIEWSon XR ANKLE RT MIN 3 VIEWS Normal [facility] CT CHEST WO CONon 03-03-2022 CT CHEST WO CON Normal [facility] CT CSPINE WO CONon 2 CT CSPINE WO CON Normal [facility] XR CHEST 2 Von 06-02-2022 XR CHEST 2 V Normal [facility] XR STERNUM MIN 2 VIEWSon XR STERNUM MIN 2 VIEWS Normal [facility] CT HEAD WO CONon 03-02-2022 CT HEAD WO CON Normal [facility] CBC AUTO DIFFon 01-21-2022 BASO # 0.0 103/ul Normal 0.0-0.1 [facility] Comment on above: Performed By: #### C BC ####[facility] Nlngngosxd5987 [place] [address]Dr. Shahbaz Rogel Basophils/100 WBC (Bld) 0.0 % Critically low 0.2-2.0 [facility] Comment on above: Performed By: #### C BC ####[facility] Riwptqqscp889[address] [place], [place] [address]Dr. Shahbaz Rogel EO # 0.0 103/ul Normal 0.0-0.7 [facility] Comment on above: Performed By: #### C BC ####[facility] Aqetfjmkei3177[address] [place], [place] [address]Dr. Shahbaz Rogel Eosinophils/100 WBC (Bld) 0.0 % Critically low 0.9-7.0 [facility] Comment on above: Performed By: #### C BC ####[facility] Pnmvbsfbmr3455[address] [place], [place] [address]Dr. Shahbaz Rogel Erythrocyte distribution width (RBC) [Ratio] 14.2 % Normal 11.0-15.0 [facility] Comment on above: Performed By: #### C BC ####[facility] Chdbogjnba164[address] [place], [place] [address]Dr. Shahbaz Rogel Hematocrit (Bld) [Volume fraction] 38.9 % Normal 36.0-48.0 [facility] Comment on above: Performed By: #### C BC ####[facility] Dqbysbtwni380[address] [place], [place] [address]Dr. Shahbaz Rogel Hemoglobin (Bld) [Mass/Vol] 11.8 g/dL Critically low 12.0-16.0 [facility] Comment on above: Performed By: #### C BC ####[facility] Xrrbphatzi6328 [place] [address]Dr. Shahbaz Rogel IG # 0.03 10e3/ul Normal 0.00-0.03 [facility] Comment on above: Performed By: #### C BC ####[facility] Ybyswwksmm6623[address] [place], [place] [address]DrChen Shahbaz Rogel IG % 0.4 % Normal 0.0-0.5 [facility] Comment on above: Performed By: #### C BC ####[facility] Kgsbpxruqg495[address] [place], [place] [address]DrChen Shahbaz Juan F LYMPH # 0.8 103/ul Critically low 1.2-3.8 [facility] Comment on above: Performed By: #### C BC ####[facility] Ienakmlrtq916[address] [place], [place] [address]DrChen Shahbaz Juan F Lymphocytes/100 WBC (Bld) 10.3 % Critically low 20.5-60.0 [facility] Comment on above: Performed By: #### C BC ####[facility] Anlxytktxk314387 [address] [place], [place] [address]DrChen Shahbaz Juan F MANUAL DIFF REQ NO Normal [facility] Comment on above: Performed By: #### C BC ####[facility] Oqroczpefe8227[address] [place], [place] [address]DrChen Shahbaz Rogel MCH (RBC) [Entitic mass] 27.1 pg Normal 26.7-34.0 [facility] Comment on above: Performed By: #### C BC ####[facility] Wfrsvhnjnn527[address] [place], [place] [address]DrChen Shahbaz Juan F MCHC (RBC) [Mass/Vol] 30.3 g/dL Normal 29.9-35.2 [facility] Comment on above: Performed By: #### C BC ####[facility] Pqvajvchhx1520[address] [place], [place] [address]DrChen Shahbaz Juan F MCV (RBC) [Entitic vol] 89.2 fL Normal 81.0-99.0 [facility] Comment on above: Performed By: #### C BC ####[facility] Pzautudetu788[address] [place], [place] [address]Dr. Shahbaz Rogel MONO # 0.4 103/ul Normal 0.3-0.8 [facility] Comment on above: Performed By: #### C BC ####[facility] Byhyserawa70[address] [place] [address]Dr. Shahbaz Rogel Monocytes/100 WBC (Bld) 4.7 % Normal 1.7-12.0 [facility] Comment on above: Performed By: #### C BC ####[facility] Kfbdpyydvj9230 [place] [address]Dr. Shahbaz Rogel NEUT # 6.6 103/ul Critically high 1.4-6.5 [facility] Comment on above: Performed By: #### C BC ####[facility] Jdaqkliacj6229[address] [place], [place] [address]Dr. Shahbaz Rogel Neutrophils/100 WBC (Bld) 84.6 % Critically high 43.0-75.0 [facility] Comment on above: Performed By: #### C BC ####[facility] Apujfnprkh5724[address] [place], [place] [address]Dr. Shahbaz Rogel Platelet mean volume (Bld) [Entitic vol] 10.0 fL Normal 9.5-13.5 [facility] Comment on above: Performed By: #### C BC ####[facility] Ngroziiziy386[address] [place], [place] [address]Dr. Shahbaz Rogel PLT 165 103/ul Normal 150-450 [facility] Comment on above: Performed By: #### C BC ####[facility] Ijztiatgqj413[address] [place], [place] [address]Dr. Shahbaz Rogel RBC 4.36 106/ul Normal 4.20-5.40 [facility] Comment on above: Performed By: #### C BC ####[facility] Ticsynmlfu433[address] [place], [place] [address]Dr. Shahbaz Rogel WBC 7.8 103/ul Normal 4.0-11.0 [facility] Comment on above: Performed By: #### C BC ####[facility] Aarvnvsumy2837[address] [place], [place] [address]Dr. Shahbaz Rogel ER URINE PROFILEon 2 Bilirubin Ql (U) Negative Normal NEGATIVE [facility] Comment on above: Performed By: #### E RUR ####[facility] Ndzwbvrbpa7913[address] [place], [place] [address]Dr. Shahbaz Rogel Clarity (U) CLEAR Normal CLEAR [facility] Comment on above: Performed By: #### E RUR ####[facility] Oyfvxwgkdh196[address] [place], [place] [address]Dr. Shahbaz Rogel Color (U) LT. YELLOW Normal YELLOW [facility] Comment on above: Performed By: #### E RUR ####[facility] Taeskpvfzy823[address] [place], [place] [address]Dr. Shahbaz Rogel ERUAHD A micrscopic examina tion will be performed if indicated. Normal [facility] Comment on above: Performed By: #### E RUR ####[facility] Gnzpuiofrw8469[address] [place], [place] [address]Dr. Shahbaz Rogel Glucose Ql (U) Negative Normal NEGATIVE [facility] Comment on above: Performed By: #### E RUR ####[facility] Atkltgygoi119[address] [place], [place] [address]Dr. Shahbaz Rogel Hemoglobin Ql (U) Negative Normal NEGATIVE [facility] Comment on above: Performed By: #### E RUR ####[facility] Apenlaclhm0700[address] [place], [place] [address]Dr. Lilajarrod Rogel Ketones Ql (U) Negative Normal NEGATIVE [facility] Comment on above: Performed By: #### E RUR ####[facility] Bqfcyyiall765[address] [place], [place] [address]Dr. Shahbaz Rogel LEUKOCYTES Negative Normal NEGATIVE [facility] Comment on above: Performed By: #### E RUR ####[facility] Wzlbzrcokw7920[address] [place], [place] [address]Dr. Lilajarrod Rogel Nitrite Ql (U) Negative Normal NEGATIVE [facility] Comment on above: Performed By: #### E RUR ####[facility] Wpasrfyala010487 [address] [place], [place] [address]Dr. Lilajarrod Rogel pH (U) 6.0 [pH] Normal 5-9 [facility] Comment on above: Performed By: #### E RUR ####[facility] Kskxinppba30[address] [place] [address]Dr. Shahbaz Rogel SPEC GRAVITY 1.020 Normal 1.005-<=1. 025 [facility] Comment on above: Performed By: #### E RUR ####[facility] Drgnmvdrcy0139 [place] [address]Dr. Shahbaz Rogel UA PROTEIN Negative Normal NEGATIVE/ TRACE [facility] Comment on above: Performed By: #### E RUR ####[facility] Pjzdmgqmwa7525 [place] [address]Dr. Shahbaz Rogel UR MICRO IND NOT INDICATED Normal [facility] Comment on above: Performed By: #### E RUR ####[facility] Ipyfotlgfz9319 [place] [address]Dr. Shahbaz Rogel Urobilinogen Qn (U) 0.2 {Melida'U}/dL Normal 0.2 - 1. 0 [facility] Comment on above: Performed By: #### E RUR ####[facility] Mhfuneaciu1634[address] [place], [place] [address]Dr. Shahbaz Rogel POINT OF CARE GLUCOSEon 01-01 Glucose [Mass/Vol] 151 mg/dL Critically high 74-106 [facility] Comment on above: Performed By: #### P OCGLUC ####[facility] Alantdxcbw8314[address] [place], [place] [address]Dr. Shahbaz Rogel Glucose [Mass/Vol] 248 mg/dL Critically high 74-106 [facility] Comment on above: Performed By: #### P OCGLUC ####[facility] Ceifdrqlzs112[address] [place], [place] [address]Dr. Shahbaz Rogel PROF 14(COMP METB)on 022 Albumin [Mass/Vol] 2.8 g/dL Critically low 3.4-5.[address] [facility] Comment on above: Performed By: #### C MP ####[facility] Rzodshujqs4510[address] [place], [place] [address]Dr. Shahbaz Rogel Albumin/Globulin [Mass ratio] 0.9 {ratio} Normal [facility] Comment on above: Performed By: #### C MP ####[facility] Cuntysthjp2535 [place] [address]Dr. Shahbaz Rogel ALP [Catalytic activity/Vol] 90 U/L Normal 46-116 [facility] Comment on above: Performed By: #### C MP ####[facility] Qcmdzsynxa9035 [place] [address]Dr. Shahbaz Juan F ALT [Catalytic activity/Vol] 20 U/L Normal 14-59 [facility] Comment on above: Performed By: #### C MP ####[facility] Jffpegapoo2325[address] [place], [place] [address]Dr. Shahbaz Rogel Anion gap [Moles/Vol] 8.9 mmol/L Normal [facility] Comment on above: Performed By: #### C MP ####[facility] Xqcpcdejtl8759[address] [place], [place] [address]Dr. Shahbaz Juan F AST [Catalytic activity/Vol] 14 U/L Critically low 15-37 [facility] Comment on above: Performed By: #### C MP ####[facility] Auxoxgqqfs608787 [address] [place], [place] [address]Dr. Lilajarrod Juan F Bilirubin [Mass/Vol] 0.1 mg/dL Critically low 0.2-1.3 [facility] Comment on above: Performed By: #### C MP ####[facility] Uejdfvkahl0636[address] [place], [place] [address]Dr. Shahbaz Rogel Calcium [Mass/Vol] 8.2 mg/dL Critically low 8.5-10.[address] [facility] Comment on above: Performed By: #### C MP ####[facility] Jsrqigskoj117[address] [place], [place] [address]Dr. Shahbaz Rogel Chloride [Moles/Vol] 110 mmol/L Critically high 98-107 [facility] Comment on above: Performed By: #### C MP ####[facility] Thdjdmryax7427[address] [place], [place] [address]Dr. Shahbaz Rogel CO2 [Moles/Vol] 28.0 mmol/L Normal 22.0-30.0 [facility] Comment on above: Performed By: #### C MP ####[facility] Dokhhakcpq1034 [place] [address]Dr. Shahbaz Rogel Creatinine [Mass/Vol] 0.78 mg/dL Normal 0.52-1.04 [facility] Comment on above: Performed By: #### C MP ####[facility] Mcneolnkkz3286 [place] [address]Dr. Shahbaz Rogel EGFR-AF JORDANIAN >60 Normal >=60 [facility] Comment on above: Performed By: #### C MP ####[facility] Nyhmrfptdi7032 [place] [address]Dr. Shahbaz Rogel EGFR-NON AF JORDANIAN >60 Normal >=60 [facility] Comment on above: Performed By: #### C MP ####[facility] Jptcvfwzwc6779[address] [place], [place] [address]Dr. Shahbaz Juan F Globulin (S) [Mass/Vol] 3.1 g/dL Normal [facility] Comment on above: Performed By: #### C MP ####[facility] Ushqklzpdc5265[address] [place], [place] [address]Dr. Shahbaz Rogel Glucose [Mass/Vol] 121 mg/dL Critically high 74-106 [facility] Comment on above: Performed By: #### C MP ####[facility] Ncnavbitje599[address] [place], [place] [address]Dr. Shahbaz Rogel Potassium [Moles/Vol] 3.9 mmol/L Normal 3.4-5.0 [facility] Comment on above: Performed By: #### C MP ####[facility] Bdyysuncpg9845[address] [place], [place] [address]Dr. Shahbaz Rogel Protein [Mass/Vol] 5.9 g/dL Critically low 6.1-8.[address] [facility] Comment on above: Performed By: #### C MP ####[facility] Tmvtzxbnlg0669[address] [place], [place] [address]Dr. Shahbaz Rogel Sodium [Moles/Vol] 143 mmol/L Normal 137-145 [facility] Comment on above: Performed By: #### C MP ####[facility] Epdqnpxolp324787 [address] [place], [place] [address]Dr. Shahbaz Rogel Urea nitrogen [Mass/Vol] 26.0 mg/dL Critically high 7.0-18.0 [facility] Comment on above: Performed By: #### C MP ####[facility] Vpgokrlnjy2813[address] [place], [place] [address]Dr. Shahbaz Juan F Urea nitrogen/Creatinine [Mass ratio] 33.3 mg/mg Normal [facility] Comment on above: Performed By: #### C MP ####[facility] Kflqmfoyle7089[address] [place], [place] [address]Dr. Shahbaz Juan F CZGFY-4-LZAOPJEWTODrq 2021 Bqycg-7-Arpudmmtnla, Serum 154 mg/dL Normal 101-187 [facility] Comment on above: Performed By: #### A LPHA-1 ####[facility] Pktlgaebrs8080[address] [place], [place] [address]Dr. Shahbaz Juan F CBC AUTO DIFFon 01-20-2022 BASO # 0.0 103/ul Normal 0.0-0.1 [facility] Comment on above: Performed By: #### C BC ####[facility] Ukwwfwqnht9511[address] [place], [place] [address]Dr. Shahbaz Juan F Basophils/100 WBC (Bld) 0.0 % Critically low 0.2-2.0 [facility] Comment on above: Performed By: #### C BC ####[facility] Lcrxqwqbfa118[address] [place], [place] [address]Dr. Shahbaz Rogel EO # 0.0 103/ul Normal 0.0-0.7 [facility] Comment on above: Performed By: #### C BC ####[facility] Fsgokagvep4427[address] [place], [place] [address]Dr. Lilajarrod Rogel Eosinophils/100 WBC (Bld) 0.0 % Critically low 0.9-7.0 [facility] Comment on above: Performed By: #### C BC ####[facility] Mxpwdnshyo187[address] [place], [place] [address]Dr. Shahbaz Rogel Erythrocyte distribution width (RBC) [Ratio] 13.7 % Normal 11.0-15.0 [facility] Comment on above: Performed By: #### C BC ####[facility] Nkwkabrqtt316[address] [place], [place] [address]Dr. Shahbaz Rogel Hematocrit (Bld) [Volume fraction] 41.2 % Normal 36.0-48.0 [facility] Comment on above: Performed By: #### C BC ####[facility] Cdkztcnpnf020[address] [place], [place] [address]Dr. Shahbaz Rogel Hemoglobin (Bld) [Mass/Vol] 12.8 g/dL Normal 12.0-16.0 [facility] Comment on above: Performed By: #### C BC ####[facility] Flelztgmxp2687[address] [place], [place] [address]Dr. Shahbaz Rogel IG # 0.10 10e3/ul Critically high 0.00-0.03 [facility] Comment on above: Performed By: #### C BC ####[facility] Zcxebotcus8879[address] [place], [place] [address]Dr. Shahbaz Rogel IG % 0.5 % Normal 0.0-0.5 [facility] Comment on above: Performed By: #### C BC ####[facility] Phkqwvwehm8050[address] [place], [place] [address]Dr. Shahabz Rogel LYMPH # 0.7 103/ul Critically low 1.2-3.8 [facility] Comment on above: Performed By: #### C BC ####[facility] Owazdkxmqq7435[address] [place], [place] [address]Dr. Shahbaz Rogel Lymphocytes/100 WBC (Bld) 6.2 % Critically low 20.5-60.0 [facility] Comment on above: Result Comment: dif. not rqd. same as 01/18/22 Performed By: #### C BC ####[facility] Bacfyradhc7[address] [place], [place] [address]Dr. Shahbaz Rogel MANUAL DIFF REQ NO Normal [facility] Comment on above: Performed By: #### C BC ####[facility] Iahkbbbrdi1615[address] [place], [place] [address]Dr. Shahbaz Rogel MCH (RBC) [Entitic mass] 27.2 pg Normal 26.7-34.0 [facility] Comment on above: Performed By: #### C BC ####[facility] Voubsfsnkz54[address] [place] [address]Dr. Shahbaz Rogel MCHC (RBC) [Mass/Vol] 31.1 g/dL Normal 29.9-35.2 [facility] Comment on above: Performed By: #### C BC ####[facility] Wwpmqxgorg0206 [place] [address]Dr. Shahbaz Rogel MCV (RBC) [Entitic vol] 87.5 fL Normal 81.0-99.0 [facility] Comment on above: Performed By: #### C BC ####[facility] Hrmcmaoymj0113 [place] [address]Dr. Shahbaz Juan F MONO # 0.2 103/ul Critically low 0.3-0.8 [facility] Comment on above: Performed By: #### C BC ####[facility] Oyqjrgqwmn25[address] [place], [place] [address]Dr. Shahbaz Juan F Monocytes/100 WBC (Bld) 1.7 % Normal 1.7-12.0 [facility] Comment on above: Performed By: #### C BC ####[facility] Itxcrbvelu3445 [place] [address]Dr. Shahbaz Rogel NEUT # 9.8 103/ul Critically high 1.4-6.5 [facility] Comment on above: Performed By: #### C BC ####[facility] Hcmickswgu6412 [place] [address]Dr. Shahbaz Juan F Neutrophils/100 WBC (Bld) 91.6 % Critically high 43.0-75.0 [facility] Comment on above: Performed By: #### C BC ####[facility] Smfxecnnof9713 [place] [address]Dr. Shahbaz Juan F Platelet mean volume (Bld) [Entitic vol] 10.0 fL Normal 9.5-13.5 [facility] Comment on above: Performed By: #### C BC ####[facility] Pkqcwddjac3405 [place] [id number]. Shahbaz Rogel PLT 198 103/ul Normal 150-450 [facility] Comment on above: Performed By: #### C BC ####[facility] Qkbcveyhtl8886 [place] [address]Dr. Shahbaz Rogel RBC 4.71 106/ul Normal 4.20-5.40 [facility] Comment on above: Performed By: #### C BC ####[facility] Lxgxkyzzqe0116 [place] [address]Dr. Shahbaz Rogel WBC 10.7 103/ul Normal 4.0-11.0 [facility] Comment on above: Performed By: #### C BC ####[facility] Dqospjumpn3572 [place] [address]Dr. Shahbaz Rogel POINT OF CARE GLUCOSEon 01-01 Glucose [Mass/Vol] 157 mg/dL Critically high 74-106 [facility] Comment on above: Performed By: #### P OCGLUC ####[facility] Yuamnljucy89[address] [place] [address]Dr. Shahbaz Rogel Glucose [Mass/Vol] 225 mg/dL Critically high 74-106 [facility] Comment on above: Performed By: #### P OCGLUC ####[facility] Orsmfmtubq7917 [place] [address]Dr. Shahbaz Rogel Glucose [Mass/Vol] 185 mg/dL Critically high 74-106 [facility] Comment on above: Performed By: #### P OCGLUC ####[facility] Ldnsqkrobd9310 [place] [address]Dr. Shahbaz Rogel Glucose [Mass/Vol] 134 mg/dL Critically high 74-106 [facility] Comment on above: Performed By: #### P OCGLUC ####[facility] Kprzkulekp[address] [place], [place] [address]Dr. Shahbaz Juan F PROF 14(COMP METB)on 022 Albumin [Mass/Vol] 3.0 g/dL Critically low 3.4-5.0 [facility] Comment on above: Performed By: #### C MP ####[facility] Xcmjwjlchb6951 [place] [address]Dr. Shahbaz Juan F Albumin/Globulin [Mass ratio] 0.9 {ratio} Normal [facility] Comment on above: Performed By: #### C MP ####[facility] [address] [place] [id number]. Shahbaz Rogel ALP [Catalytic activity/Vol] 81 U/L Normal 46-116 [facility] Comment on above: Performed By: #### C MP ####[facility] Eibqzxvkld[address] [place] [address]Dr. Shahbaz Juan F ALT [Catalytic activity/Vol] 14 U/L Normal 14-59 [facility] Comment on above: Performed By: #### C MP ####[facility] Iterndxwgq97[address] [place], [place] [address]Dr. Shahbaz Rogel Anion gap [Moles/Vol] 13.1 mmol/L Normal [facility] Comment on above: Performed By: #### C MP ####[facility] Bynisgksbr[address] [place], [place] [address]Dr. Shahbaz Juan F AST [Catalytic activity/Vol] 20 U/L Normal 15-37 [facility] Comment on above: Performed By: #### C MP ####[facility] Pessubiaco[address] [place], [place] [address]Dr. Shahbaz Rogel Bilirubin [Mass/Vol] 0.3 mg/dL Normal 0.2-1.3 [facility] Comment on above: Performed By: #### C MP ####[facility] Zocmopjlbv07[address] [place], [place] [address]Dr. Shahbaz Rogel Calcium [Mass/Vol] 8.5 mg/dL Normal 8.5-10.1 [facility] Comment on above: Performed By: #### C MP ####[facility] Wdbktqyxmq2050[address] [place], [place] [address]Dr. Shahbaz Rogel Chloride [Moles/Vol] 107 mmol/L Normal 98-107 [facility] Comment on above: Performed By: #### C MP ####[facility] Idyicqgeol[address] [place] [address]Dr. Shahbaz Juan F CO2 [Moles/Vol] 24.0 mmol/L Normal 22.0-30.0 [facility] Comment on above: Performed By: #### C MP ####[facility] Rdswvobclb[address] [place] [address]Dr. Lilajarrod Rogel Creatinine [Mass/Vol] 1.00 mg/dL Normal 0.52-1.04 [facility] Comment on above: Performed By: #### C MP ####[facility] Kvggtqnblt5[address] [place], [place] [address]Dr. Shahbaz Juan F EGFR-AF JORDANIAN >60 Normal >=60 [facility] Comment on above: Performed By: #### C MP ####[facility] Bghepvyihk[address] [place], [place] [address]Dr. Shahbaz Rogel EGFR-NON AF JORDANIAN 57 mL/min/1.73m2 Critically low >=60 [facility] Comment on above: Performed By: #### C MP ####[facility] Uyttjrmjxn68[address] [place], [place] [address]Dr. Lilajarrod Rogel Globulin (S) [Mass/Vol] 3.4 g/dL Normal [facility] Comment on above: Performed By: #### C MP ####[facility] Rzvoiphqqg134[address] [place], [place] [address]Dr. Shahbaz oRgel Glucose [Mass/Vol] 153 mg/dL Critically high 74-106 [facility] Comment on above: Performed By: #### C MP ####[facility] Weqelwfezq8077[address] [place], [place] [address]Dr. Lilajarrod Rogel Potassium [Moles/Vol] 4.1 mmol/L Normal 3.4-5.0 [facility] Comment on above: Performed By: #### C MP ####[facility] Rguysguwtv3536[address] [place], [place] [address]Dr. Shahbaz Rogel Protein [Mass/Vol] 6.4 g/dL Normal 6.1-8.2 [facility] Comment on above: Performed By: #### C MP ####[facility] Usvodbjzmz6729[address] [place], [place] [address]Dr. Shahbaz Rogel Sodium [Moles/Vol] 140 mmol/L Normal 137-145 [facility] Comment on above: Performed By: #### C MP ####[facility] Paulkbjhfk[address] [place] [address]Dr. Shahbaz Rogel Urea nitrogen [Mass/Vol] 26.0 mg/dL Critically high 7.0-18.0 [facility] Comment on above: Performed By: #### C MP ####[facility] Ttfdctqfnj5637[address] [place], [place] [address]Dr. Shahbaz Rogel Urea nitrogen/Creatinine [Mass ratio] 26.5 mg/mg Normal [facility] Comment on above: Performed By: #### C MP ####[facility] Ishosrfibf3455[address] [place], [place] [address]Dr. Shahbaz Rogel BNPon 01-19-2022 Natriuretic peptide B (Bld) [Mass/Vol] 117.0 pg/mL Normal <=900.0 [facility] Comment on above: Performed By: #### B TELEVISION NEWS REPORTER, CMP ####[facility] Rcqhhiuogw1695[address] [place], [place] [address]Dr. Shahbaz Rogel CBC AUTO DIFFon 01-19-2022 BASO # 0.0 103/ul Normal 0.0-0.1 [facility] Comment on above: Performed By: #### C BC ####[facility] Sdghnsuzas[address] [place], [place] [address]Dr. Shahbaz Rogel Basophils/100 WBC (Bld) 0.0 % Critically low 0.2-2.0 [facility] Comment on above: Performed By: #### C BC ####[facility] Kfxqfjasbk888[address] [place], [place] [address]Dr. Shahbaz Rogel EO # 0.0 103/ul Normal 0.0-0.7 [facility] Comment on above: Performed By: #### C BC ####[facility] Imyxsuiorq4395[address] [place], [place] [address]Dr. Shahbaz Rogel Eosinophils/100 WBC (Bld) 0.0 % Critically low 0.9-7.0 [facility] Comment on above: Performed By: #### C BC ####[facility] Reniojmmyg883[address] [place], [place] [address]Dr. Shahbaz Rogel Erythrocyte distribution width (RBC) [Ratio] 13.4 % Normal 11.0-15.0 [facility] Comment on above: Performed By: #### C BC ####[facility] Axgufncegp8070[address] [place], [place] [address]Dr. Shahbaz Rogel Hematocrit (Bld) [Volume fraction] 46.3 % Normal 36.0-48.0 [facility] Comment on above: Performed By: #### C BC ####[facility] Vwrqxxijup[address] [place], [place] [address]Dr. Shahbaz Rogel Hemoglobin (Bld) [Mass/Vol] 14.3 g/dL Normal 12.0-16.0 [facility] Comment on above: Performed By: #### C BC ####[facility] Znarolfxyk1900[address] [place], [place] [address]Dr. Shahbaz Rogel IG # 0.00 10e3/ul Normal 0.00-0.03 [facility] Comment on above: Performed By: #### C BC ####[facility] Vlpavxrjlf839[address] [place], [place] [address]Dr. Shahbaz Rogel IG % 0.0 % Normal 0.0-0.5 [facility] Comment on above: Performed By: #### C BC ####[facility] Fcqaxhjuhg428[address] [place], [place] [address]Dr. Shahbaz Rogel LYMPH # 0.6 103/ul Critically low 1.2-3.8 [facility] Comment on above: Performed By: #### C BC ####[facility] Dfuwzoyjlu993[address] [place], [place] [address]Dr. Shahbaz Rogel Lymphocytes/100 WBC (Bld) 14.2 % Critically low 20.5-60.0 [facility] Comment on above: Performed By: #### C BC ####[facility] Xdqgwwwsaq2927[address] [place], [place] [address]Dr. Shahbaz Rogel MANUAL DIFF REQ NO Normal [facility] Comment on above: Performed By: #### C BC ####[facility] L[address]kw[address] [place] [id number]. Shahbaz Juan F MCH (RBC) [Entitic mass] 27.7 pg Normal 26.7-34.0 [facility] Comment on above: Performed By: #### C BC ####[facility] [address]phtchccyx[address] [place] [id number]. Shahbaz Juan F MCHC (RBC) [Mass/Vol] 30.9 g/dL Normal 29.9-35.2 [facility] Comment on above: Performed By: #### C BC ####[facility] [address]teguuqga[address] [place] [address]Dr. Lilajarrod Rogel MCV (RBC) [Entitic vol] 89.6 fL Normal 81.0-99.0 [facility] Comment on above: Performed By: #### C BC ####[facility] Nughjktogc204[address] [place], [place] [address]Dr. Shahbaz Rogel MONO # 0.0 103/ul Critically low 0.3-0.8 [facility] Comment on above: Performed By: #### C BC ####[facility] Dkzlqhhysl6[address] [place], [place] [address]Dr. Shahbaz Rogel Monocytes/100 WBC (Bld) 1.0 % Critically low 1.7-12.0 [facility] Comment on above: Performed By: #### C BC ####[facility] Bzprktxnut[address] [place], [place] [address]Dr. Shahbaz Rogel NEUT # 3.5 103/ul Normal 1.4-6.5 [facility] Comment on above: Performed By: #### C BC ####[facility] Urhzpdsthl403[address] [place], [place] [address]Dr. Shahbaz Rogel Neutrophils/100 WBC (Bld) 84.8 % Critically high 43.0-75.0 [facility] Comment on above: Performed By: #### C BC ####[facility] Bshndqeemg9[address] [place], [place] [address]Dr. Shahbaz Rogel Platelet mean volume (Bld) [Entitic vol] 9.8 fL Normal 9.5-13.5 [facility] Comment on above: Performed By: #### C BC ####[facility] [address]ec[address] [place] [address]Dr. Shahbaz Rogel PLT 185 103/ul Normal 150-450 [facility] Comment on above: Performed By: #### C BC ####[facility] Gfvczfxgbl[address] [place] [id number]. Shahbaz Rogel RBC 5.17 106/ul Normal 4.20-5.40 [facility] Comment on above: Performed By: #### C BC ####[facility] V[address]tcpfffu[address] [place] [address]Dr. Shahbaz Rogel WBC 4.2 103/ul Normal 4.0-11.0 [facility] Comment on above: Performed By: #### C BC ####[facility] W[address]rlumomj[address] [place] [address]Dr. Lilajarrod Juan F LACTATE/LACTIC ACIDon 2021 Lactate [Moles/Vol] 1.7 mmol/L Normal 0.7-2.0 [facility] Comment on above: Performed By: #### L ACT ####[facility] Fwhszfbfvw156[address] [place], [place] [address]Dr. Shahbaz Rogel POINT OF CARE GLUCOSEon 01-01 Glucose [Mass/Vol] 173 mg/dL Critically high 74-106 [facility] Comment on above: Performed By: #### P OCGLUC ####[facility] Qbelljbpyj5[address] [place] [address]Dr. Lilajarrod Juan F Glucose [Mass/Vol] 181 mg/dL Critically high 74-106 [facility] Comment on above: Performed By: #### P OCGLUC ####[facility] Zbvkknrzhv127[address] [place], [place] [address]Dr. Shahbaz Rogel Glucose [Mass/Vol] 154 mg/dL Critically high 74-106 [facility] Comment on above: Performed By: #### P OCGLUC ####[facility] Qfdrkgyltp0790[address] [place], [place] [address]Dr. Shahbaz Rogel PROF 14(COMP METB)on 04-20-2 022 Albumin [Mass/Vol] 3.5 g/dL Normal 3.4-5.0 [facility] Comment on above: Performed By: #### B TELEVISION NEWS REPORTER, CMP ####[facility] Lrvimwmvxl28[address] [place] [address]Dr. Shahbaz Rogel Albumin/Globulin [Mass ratio] 0.9 {ratio} Normal [facility] Comment on above: Performed By: #### B TELEVISION NEWS REPORTER, CMP ####[facility] Kbvklsktot39[address] [place] [address]Dr. Shahbaz Rogel ALP [Catalytic activity/Vol] 107 U/L Normal 46-116 [facility] Comment on above: Performed By: #### B TELEVISION NEWS REPORTER, CMP ####[facility] Cjmhfildwo017[address] [place], [place] [address]Dr. Shahbaz Rogel ALT [Catalytic activity/Vol] 18 U/L Normal 14-59 [facility] Comment on above: Performed By: #### B TELEVISION NEWS REPORTER, CMP ####[facility] Ybjkbobbvl1538[address] [place], [place] [address]Dr. Shahbaz Rogel Anion gap [Moles/Vol] 14.1 mmol/L Normal [facility] Comment on above: Performed By: #### B TELEVISION NEWS REPORTER, CMP ####[facility] Lteawacbyl757[address] [place], [place] [address]Dr. Shahbaz Rogel AST [Catalytic activity/Vol] 19 U/L Normal 15-37 [facility] Comment on above: Performed By: #### B TELEVISION NEWS REPORTER, CMP ####[facility] Mqfcyuiizo5027[address] [place], [place] [address]Dr. Shahbaz Rogel Bilirubin [Mass/Vol] 0.5 mg/dL Normal 0.2-1.3 [facility] Comment on above: Performed By: #### B TELEVISION NEWS REPORTER, CMP ####[facility] Dicemmxxfa3225[address] [place], [place] [address]Dr. Shahbaz Rogel Calcium [Mass/Vol] 8.5 mg/dL Normal 8.5-10.1 [facility] Comment on above: Performed By: #### B TELEVISION NEWS REPORTER, CMP ####[facility] Tbhmrwxhmx002[address] [place], [place] [address]Dr. Shahbaz Rogel Chloride [Moles/Vol] 103 mmol/L Normal 98-107 [facility] Comment on above: Performed By: #### B TELEVISION NEWS REPORTER, CMP ####[facility] Pzgnairavr1715[address] [place], [place] [address]Dr. Shahbaz Rogel CO2 [Moles/Vol] 25.4 mmol/L Normal 22.0-30.0 [facility] Comment on above: Performed By: #### B TELEVISION NEWS REPORTER, CMP ####[facility] Wsiypcmzmr2069[address] [place], [place] [address]Dr. Shahbaz Rogel Creatinine [Mass/Vol] 1.48 mg/dL Critically high 0.52-1.04 [facility] Comment on above: Performed By: #### B TELEVISION NEWS REPORTER, CMP ####[facility] Xvkdbzhcsd442[address] [place], [place] [address]Dr. Shahbaz Rogel EGFR-AF JORDANIAN 44 mL/min/1.73m2 Critically low >=60 [facility] Comment on above: Performed By: #### B TELEVISION NEWS REPORTER, CMP ####[facility] Iixprvfkea0267[address] [place], [place] [address]Dr. Shahbaz Rogel EGFR-NON AF JORDANIAN 36 mL/min/1.73m2 Critically low >=60 [facility] Comment on above: Performed By: #### B TELEVISION NEWS REPORTER, CMP ####[facility] Zfigkuajec7027[address] [place], [place] [address]Dr. Shahbaz Juan F Globulin (S) [Mass/Vol] 3.7 g/dL Normal [facility] Comment on above: Performed By: #### B TELEVISION NEWS REPORTER, CMP ####[facility] Ywtlghitge[address] [place], [place] [address]Dr. Shahbaz Juan F Glucose [Mass/Vol] 203 mg/dL Critically high 74-106 [facility] Comment on above: Performed By: #### B TELEVISION NEWS REPORTER, CMP ####[facility] Jsyzpgblbr7769[address] [place], [place] [address]Dr. Shahbaz Rogel Potassium [Moles/Vol] 3.5 mmol/L Normal 3.4-5.0 [facility] Comment on above: Performed By: #### B TELEVISION NEWS REPORTER, CMP ####[facility] Pklmbencwp9936[address] [place], [place] [address]Dr. Shahbaz Rogel Protein [Mass/Vol] 7.2 g/dL Normal 6.1-8.2 [facility] Comment on above: Performed By: #### B TELEVISION NEWS REPORTER, CMP ####[facility] Enlavtzdyv256[address] [place], [place] [address]Dr. Shahbaz Rogel Sodium [Moles/Vol] 139 mmol/L Normal 137-145 [facility] Comment on above: Performed By: #### B TELEVISION NEWS REPORTER, CMP ####[facility] Gkdrpmwnck859[address] [place], [place] [address]Dr. Shahbaz Juan F Urea nitrogen [Mass/Vol] 17.0 mg/dL Normal 7.0-18.0 [facility] Comment on above: Performed By: #### B TELEVISION NEWS REPORTER, CMP ####[facility] Rcxryvqgmj619[address] [place], [place] [address]Dr. Shahbaz Rogel Urea nitrogen/Creatinine [Mass ratio] 11.5 mg/mg Normal [facility] Comment on above: Performed By: #### B TELEVISION NEWS REPORTER, CMP ####[facility] Drgaqoffcp5240[address] [place], [place] [address]Dr. Shahbaz Juan F BNPon 01-18-2022 Natriuretic peptide B (Bld) [Mass/Vol] 55.0 pg/mL Normal <=900.0 [facility] Comment on above: Performed By: #### C MP, BNP, HSTROPN ####[facility] Qbrqpwajqj2439[address] [place], [place] [address]Dr. Lilajarrod Juan F CBC W MANUAL DIFFon 01-19-20 22 ATYPICAL LYMPH # 0.12 103/ul Normal [facility] Comment on above: Performed By: #### C BCMAN ####[facility] Svljxwjhva7960[address] [place], [place] [address]Dr. Shahbaz Rogel ATYPICAL LYMPH % 2 % Normal [facility] Comment on above: Performed By: #### C BCMAN ####[facility] Usoyteugsx212[address] [place], [place] [address]Dr. Shahbaz Rogel BAND # 0.0 103/ul Normal 0.0-0.3 [facility] Comment on above: Performed By: #### C BCBRICE ####[facility] Tfrgqvxkom[address] [place] [id number]. Shahbaz Rogel BAND % 0 % Normal 0-5 [facility] Comment on above: Performed By: #### C BCBRICE ####[facility] Jugusugcpx[address] [place] [id number]. Yijarrod Rogel BASOM # 0.00 103/ul Normal 0.00-0.10 [facility] Comment on above: Performed By: #### C BCBRICE ####[facility] Heqyxhfnlu20[address] [place] [address]Dr. Shahbaz Rogel BASOM % 0.0 % Critically low 0.2-2.0 [facility] Comment on above: Performed By: #### C CAIN ####[facility] Amhefxqmfe1859[address] [place], [place] [address]Dr. Yijarrod Rogel BLAST # Normal [facility] Comment on above: Performed By: #### C BCBRICE ####[facility] Pojihmgvgu39[address] [place], [place] [address]Dr. Yijarrod Rogel BLAST % Normal [facility] Comment on above: Performed By: #### C CAIN ####[facility] Yphobxsklp4[address] [place], [place] [address]Dr. Shahbaz Rogel CORRECTED WBC Normal 4.0-11.0 [facility] Comment on above: Performed By: #### C CAIN ####[facility] Dcakryrbfx5377[address] [place], [place] [address]Dr. Yijarrod Rogel EOS # 0.25 103/ul Normal 0.00-0.70 [facility] Comment on above: Performed By: #### C BCBRICE ####[facility] Rnkxgzoszi2857[address] [place], [place] [address]Dr. Shahbaz Rogel EOS% 4.0 % Normal 0.9-7.0 [facility] Comment on above: Performed By: #### C BCBRICE ####[facility] Mmobfyrztk7375[address] [place], [place] [address]Dr. Yilan Rogel HCT 46.8 % Normal 36.0-48.0 [facility] Comment on above: Performed By: #### Cheri BARLOW ####[facility] Tutkaisfld[address] [place], [place] [address]Kn. Shahbaz Rogel HGB 14.9 g/dl Normal 12.0-16.0 [facility] Comment on above: Performed By: #### Cheri BRALOW ####[facility] Hysvyhncwf8594 [place], [place] [address]Sx. Shahbaz Rogel LYMPHM # 0.68 103/ul Critically low 1.20-3.80 [facility] Comment on above: Performed By: #### Cheri BARLOW ####[facility] Zwgifhktur90[address] [place] [id number]. Shahbaz Rogel LYMPHM% 11.0 % Critically low 20.5-60.0 [facility] Comment on above: Performed By: #### Cheri BARLOW ####[facility] Hcvdysmdqd25[address] [place] [phone]. Shahbaz Rogel MCH 27.6 pg Normal 26.7-34.0 [facility] Comment on above: Performed By: #### Cheri BARLOW ####[facility] Xehwjgnmpr060[address] [place] [phone]. Shahbaz Rogel MCHC 31.8 g/dl Normal 29.9-35.2 [facility] Comment on above: Performed By: #### Cheri BARLOW ####[facility] Q[address]qwhhqui75[address] [place] [phone]. Shahbaz Rogel MCV 86.8 fL Normal 81.0-99.0 [facility] Comment on above: Performed By: #### Cheri BARLOW ####[facility] Diutfozivu0538 [place], [place] [address]Us. Shahbaz Rogel METAMYELOCYTE # Normal [facility] Comment on above: Performed By: #### Cheri BARLOW ####[facility] Bnrtsscycb18[address] [place] [phone]. Shahbaz Rogel METAMYELOCYTE % Normal [facility] Comment on above: Performed By: #### Cheri BARLOW ####[facility] Ssnstptxdt30[address] [place] [phone]. Shahbaz Rogel MONOM# 0.19 103/ul Critically low 0.30-0.80 [facility] Comment on above: Performed By: #### C CAIN ####[facility] Xeopzvridn79[address] [place] [phone]. Shahbaz Rogel MONOM% 3.0 % Normal 1.7-12.0 [facility] Comment on above: Performed By: #### C CAIN ####[facility] Hsdxonhrth0638 [place] [phone]. Shahbaz Rogel MPV 9.6 fL Normal 9.5-13.5 [facility] Comment on above: Performed By: #### C CAIN ####[facility] Skilkgzrxs[address] [place], [place] [address]Dr. Shahbaz Rogel MYELOCYTE # Normal [facility] Comment on above: Performed By: #### C CAIN ####[facility] Skdcaquxzj2127[address] [place], [place] [address]Dr. Shahbaz Rogel MYELOCYTE % Normal [facility] Comment on above: Performed By: #### C CAIN ####[facility] Ryvukvmxef029[address] [place], [place] [address]Dr. Shahbaz Rogel NRBC Normal [facility] Comment on above: Performed By: #### C CAIN ####[facility] Qejvmmqcze232[address] [place], [place] [address]Dr. Shahbaz Rogel PLT 203 103/ul Normal 150-450 [facility] Comment on above: Performed By: #### C CAIN ####[facility] Nclugojefe4[address] [place] [phone]. Shahbaz Rogel RBC 5.39 106/ul Normal 4.20-5.40 [facility] Comment on above: Performed By: #### C CAIN ####[facility] Ugkwzroifx18668[address] [place], [place] [address]Dr. Shahbaz Rogel RDW 13.7 % Normal 11.0-15.0 [facility] Comment on above: Performed By: #### C CAIN ####[facility] Caizoqrupm4795[address] [place], [place] [address]Dr. Shahbaz Rogel SEG # 4.96 103/ul Normal 1.40-6.50 [facility] Comment on above: Performed By: #### C BCMAN ####[facility] Vzyvocnqnb2354 [place] [phone]. Shahbaz Rogel SEG % 80.0 % Critically high 43.0-75.0 [facility] Comment on above: Performed By: #### Cheri BCMAN ####[facility] Oakmhtkijd[address] [place] [phone]. Shahbaz Rogel WBC 6.2 103/ul Normal 4.0-11.0 [facility] Comment on above: Performed By: #### Cheri BUCHANANMAN ####[facility] Kvrogqoihn[address] [place] [phone] Rogel CULTURE BLOODon 01-18-2022 Microscopic examination of blood, culture Culture Observations: No growth at 5 days. Normal [facility] Comment on above: Performed By: #### B LDCX2 ####[facility] [address]iobl[address] [place], [place] [id number]. Shahbaz Rogel Microscopic examination of blood, culture Culture Observations: No growth at 5 days Normal [facility] Comment on above: Performed By: #### B LDCX1 ####[facility] [address]ikjagqjy[address] [place], [place] [id number]. Shahbaz Rogel Covid-19 PCR (CVDTB)on 12-31 SARS-CoV-2 (COVID-19) RNA PAVAN+probe Ql (Unsp spec) Not detected Normal NOT DETECTED [facility] Comment on above: Result Comment: This test is not yet approved or cleared by the [place] FDA. When there are no FDA-approved or cleared tests available, and other criteria are met, FDA can make tests available under an emergency access mechanism called an Emergency Use Authorization (EUA). The EUA for this test is supported by the [place] of Health and Human Service's (HHS's) declaration [...] with SARS-CoV-2. Performed By: #### C VDTBH ####[facility] Hsjzxeqkoq[address] [place], [place] [address]Dr. [facility] D-DIMERon 01-18-2022 D-DIMER 0.29 mg/L FEU Normal 0.19-0.50 [facility] Comment on above: Performed By: #### D DIM ####[facility] Ipfatldojx13[address] [place], [place] [address]Dr. [facility] D-DIMER COMMENTS SEE BELOW Normal [facility] Comment on above: Result Comment: Incr [...] generalized hospitalization. Performed By: #### D DIM ####[facility] Vkzjpufpva[address] [place], [place] [address]Dr. [facility] INFLUENZA A AND B AGon 01-18 INFLUANEGH SEE BELOW Normal [facility] Comment on above: Result Comment: Nega tive for Flu A protein angiten. Infection due to Flu A cannot be ruled out. Flu A angiten in the sample may be below the detection limit of the test. Performed By: #### I NFLUAB ####[facility] Kgpwqgslof[address] [place], [place] [address]Dr. [facility] INFLUBNEGH SEE BELOW Normal [facility] Comment on above: Result Comment: Nega tive for Flu B protein antigen. Infection due to Flu B cannot be ruled out. Flu B antigen in the sample may be below the detection limit of the test. Performed By: #### I NFLUAB ####[facility] [address]av[address] [place] [address]Dr. Shahbaz Rogel INFLUENZA A AG Negative Normal NEGATIVE SEE COMMENT [facility] Comment on above: Performed By: #### I NFLUAB ####[facility] [address]irpwkqsd[address] [place] [address]Dr. Shahbaz Rogel INFLUENZA B AG Negative Normal NEGATIVE SEE COMMENT [facility] Comment on above: Performed By: #### I NFLUAB ####[facility] Genlvqmcrw[address] [place], [place] [address]Dr. Shahbaz Rogel INTERNAL CONTROLS Within Normal Limits Normal Wi thin Normal Limits [facility] Comment on above: Performed By: #### I NFLUAB ####[facility] Mvqqdydhjp[address] [place], [place] [address]Dr. Shahbaz Rogel LACTATE/LACTIC ACIDon 2021 Lactate [Moles/Vol] 1.0 mmol/L Normal 0.7-2.0 [facility] Comment on above: Performed By: #### L ACT ####[facility] Vymuwsuaqm[address] [place], [place] [address]Dr. Shahbaz Rogel PROF 14(COMP METB)on 022 Albumin [Mass/Vol] 3.8 g/dL Normal 3.4-5.0 [facility] Comment on above: Performed By: #### C MP, BNP, HSTROPN ####[facility] Orailkvsbh[address] [place], [place] [address]Dr. Shahbaz Rogel Albumin/Globulin [Mass ratio] 1.0 {ratio} Normal [facility] Comment on above: Performed By: #### C MP, BNP, HSTROPN ####[facility] Jhcjoeaceu[address] [place], [place] [address]Dr. Shahbaz Rogel ALP [Catalytic activity/Vol] 116 U/L Normal 46-116 [facility] Comment on above: Performed By: #### C MP, BNP, HSTROPN ####[facility] Zntyyqdukn[address] [place], [place] [address]Dr. Shahbaz Rogel ALT [Catalytic activity/Vol] 16 U/L Normal 14-59 [facility] Comment on above: Performed By: #### C MP, BNP, HSTROPN ####[facility] Rfxrsuplno[address] [place] [address]Dr. Shahbaz Rogel Anion gap [Moles/Vol] 9.4 mmol/L Normal [facility] Comment on above: Performed By: #### C MP, BNP, HSTROPN ####[facility] Qoylxaosiz[address] [place] [address]Dr. Shahbaz Rogel AST [Catalytic activity/Vol] 19 U/L Normal 15-37 [facility] Comment on above: Performed By: #### C MP, BNP, HSTROPN ####[facility] Okzodoronl[address] [place], [place] [address]Dr. Shahbaz Rogel Bilirubin [Mass/Vol] 0.5 mg/dL Normal 0.2-1.3 [facility] Comment on above: Performed By: #### C MP, BNP, HSTROPN ####[facility] Rhjlnlxhaq[address] [place], [place] [address]Dr. Shahbaz Rogel Calcium [Mass/Vol] 8.9 mg/dL Normal 8.5-10.1 [facility] Comment on above: Performed By: #### C MP, BNP, HSTROPN ####[facility] Ijcfgfqaxj[address] [place] [address]Dr. Shahbaz Rogel Chloride [Moles/Vol] 104 mmol/L Normal 98-107 [facility] Comment on above: Performed By: #### C MP, BNP, HSTROPN ####[facility] Wnpkqyjtlb[address] [place], [place] [address]Dr. Shahbaz Rogel CO2 [Moles/Vol] 27.2 mmol/L Normal 22.0-30.0 [facility] Comment on above: Performed By: #### C MP, BNP, HSTROPN ####[facility] Mt[address]ql[address] [place] [address]Dr. Shahbaz Rogel Creatinine [Mass/Vol] 0.99 mg/dL Normal 0.52-1.04 [facility] Comment on above: Performed By: #### C MP, BNP, HSTROPN ####[facility] Bxrqlvydzi[address] [place] [address]Dr. Shahbaz Rogel EGFR-AF JORDANIAN >60 Normal >=60 [facility] Comment on above: Performed By: #### C MP, BNP, HSTROPN ####[facility] [address]xwpwcuof[address] [place] [address]Dr. Shahbaz Rogel EGFR-NON AF JORDANIAN 58 mL/min/1.73m2 Critically low >=60 [facility] Comment on above: Performed By: #### C MP, BNP, HSTROPN ####[facility] Lxafaeylaq23[address] [place] [address]Dr. Shahbaz Rogel Globulin (S) [Mass/Vol] 3.8 g/dL Normal [facility] Comment on above: Performed By: #### C MP, BNP, HSTROPN ####[facility] Dpglowpjfp[address] [place], [place] [address]Dr. Shahbaz Rogel Glucose [Mass/Vol] 104 mg/dL Normal 74-106 [facility] Comment on above: Performed By: #### C MP, BNP, HSTROPN ####[facility] Hgccgjjghu[address] [place], [place] [address]Dr. Shahbaz Rogel Potassium [Moles/Vol] 3.6 mmol/L Normal 3.4-5.0 [facility] Comment on above: Performed By: #### C MP, BNP, HSTROPN ####[facility] Pqustdtzrh[address] [place], [place] [address]Dr. Shahbaz Rogel Protein [Mass/Vol] 7.6 g/dL Normal 6.1-8.2 [facility] Comment on above: Performed By: #### C MP, BNP, HSTROPN ####[facility] C[address]cgtttjy[address] [place], [place] [address]Dr. Shahbaz Rogel Sodium [Moles/Vol] 137 mmol/L Normal 137-145 [facility] Comment on above: Performed By: #### C MP, BNP, HSTROPN ####[facility] [address] [place] [address]Sf. Shahbaz Rogel Urea nitrogen [Mass/Vol] 9.0 mg/dL Normal 7.0-18.0 [facility] Comment on above: Performed By: #### C MP, BNP, HSTROPN ####[facility] [address] [place], [place] [address]Dr. Shahbaz Rogel Urea nitrogen/Creatinine [Mass ratio] 9.1 mg/mg Normal [facility] Comment on above: Performed By: #### C MP, BNP, HSTROPN ####[facility] [address]nuual[address] [place], [place] [address]Be. Shahbaz Rogel TROPONIN, HIGH SENSITIVITYon 01-18-2022 HSTROP 6.4 pg/mL Normal 4.0-35.5 [facility] Comment on above: Result Comment: CUT- OFF POINTS HAVE BEEN ESTABLISHED BASED ON THE FOURTH UNIVERSAL DEFINITIONS OF MYOCARDIALINFARCTION. THE UPPER REFERENCE LIMIT (URL) OF TROPONIN, DEFINED THE 99TH PERCENTILE OFcTnI DISTRIBUTION IN A REFERENCE POPULATION, HAS BEEN CONFIRMED THE DECISION THRESHOLDFOR [place] DIAGNOSIS. Performed By: #### C MP, BNP, HSTROPN ####[facility] [address] [place] [id number]. Shahbaz Rogel XR CHEST 2 Von 01-18-2022 XR CHEST 2 V Normal [facility] URINALYSIS REFLEXon 04-04-20 20 Appearance (U) CLEAR Normal CLEAR [facility] Comment on above: Order Comment: No: D o not add to previous draw Performed By: #### 1 0070, 77995, 68747, 09966, 67473, 62385 #### [facility] [address] [place] [address], [place] Bilirubin [Mass/Vol] Negative Normal NEGATIVE [facility] Comment on above: Order Comment: No: D o not add to previous draw Performed By: #### 1 0070, 63179, 64739, 49602, 95637, 97034 #### [facility] [address] [place] [address], [place] BLOOD Negative Normal NEGATIVE [facility] Comment on above: Order Comment: No: D o not add to previous draw Performed By: #### 1 0070, 00484, 80265, 55452, 90545, 07615 #### [facility] [address] [place] [address], [place] Color (U) YELLOW Normal YELLOW [facility] Comment on above: Order Comment: No: D o not add to previous draw Performed By: #### 1 0070, 95472, 93044, 19396, 21575, 14260 #### [facility] [address] [place] [address], [place] Glucose [Mass/Vol] Negative Normal NEGATIVE [facility] Comment on above: Order Comment: No: D o not add to previous draw Performed By: #### 1 0070, 80140, 05273, 29465, 12916, 14750 #### [facility] [address] [place] [address], [place] KETONE Negative Normal NEGATIVE [facility] Comment on above: Order Comment: No: D o not add to previous draw Performed By: #### 1 0070, 03030, 58191, 99167, 40225, 12308 #### [facility] [address] [place] [address], [place] LEUK ELIU Negative Normal NEGATIVE [facility] Comment on above: Order Comment: No: D o not add to previous draw Performed By: #### 1 0070, 53727, 68533, 04873, 68065, 85502 #### [facility] [address] [place] [address], [place] MICRO NOT DONE Normal [facility] Comment on above: Order Comment: No: D o not add to previous draw Result Comment: Micr oscopics not performed on urines with negative chemical reactions unless requested in original order Performed By: #### 1 0070, 48364, 52494, 42509, 58144, 92391 #### [facility] [address] [place] [address], [place] Nitrite Ql (U) Negative Normal NEGATIVE [facility] Comment on above: Order Comment: No: D o not add to previous draw Performed By: #### 1 0070, 79397, 04693, 82491, 43896, 54239 #### [facility] [address] [place] [address], [facility] pH (Bld) 5.0 Normal 5.0-8.0 [facility] Comment on above: Order Comment: No: D o not add to previous draw Performed By: #### 1 0070, 35490, 55984, 17925, 84709, 95236 #### [facility] [address] [place] [address], [facility] Protein (U) [Mass/Vol] Negative Normal NEGATIVE [facility] Comment on above: Order Comment: No: D o not add to previous draw Performed By: #### 1 0070, 63675, 59031, 64788, 33120, 63307 #### [facility] [address] [facility] [place] [address], [facility] SPEC GRAV 1.012 Low 1.015-1.02 0 [facility] Comment on above: Order Comment: No: D o not add to previous draw Performed By: #### 1 0070, 51826, 73836, 36561, 66131, 62893 #### [facility] [address] [place] [address], [facility] BASIC METABOLIC PANELon 07-0 -2019 Calcium [Mass/Vol] 8.4 mg/dL Low 8.6-10.3 [facility] Comment on above: Order Comment: No: D o not add to previous draw Performed By: #### 1 0070, 80325, 75857, 74140, 38504, 77629 #### [facility] [address] [place] [address], [facility] Chloride [Moles/Vol] 101 mmol/L Normal 98-107 [facility] Comment on above: Order Comment: No: D o not add to previous draw Performed By: #### 1 0070, 49096, 87836, 07273, 25403, 27230 #### [facility] [address] [place] [address], [facility] CO2 [Moles/Vol] 29 mmol/L Normal 21-31 [facility] Comment on above: Order Comment: No: D o not add to previous draw Performed By: #### 1 0070, 90448, 71016, 27237, 81329, 69138 #### [facility] [address] [place] [address], [facility] Creatinine [Mass/Vol] 0.79 mg/dL Normal 0.60-1.20 [facility] Comment on above: Order Comment: No: D o not add to previous draw Performed By: #### 1 0070, 87688, 43724, 70951, 73072, 53440 #### [facility] [address] [place] [address], [place] GFR/1.73 sq M predicted among blacks MDRD (S/P/Bld) [Vol rate/Area] mL/min/{1.73_m2} Normal >60 [facility] Comment on above: Order Comment: No: D o not add to previous draw Performed By: #### 1 0070, 68874, 53552, 52970, 18812, 13139 #### [facility] [address] [place] [address], [place] GFR/1.73 sq M predicted among non-blacks MDRD (S/P/Bld) [Vol rate/Area] mL/min/{1.73_m2} Normal >60 [facility] Comment on above: Order Comment: No: D o not add to previous draw Performed By: #### 1 0070, 16136, 74607, 94725, 36251, 48863 #### [facility] [address] [place] [address], [place] Glucose [Mass/Vol] 91 mg/dL Normal 70-100 [facility] Comment on above: Order Comment: No: D o not add to previous draw Performed By: #### 1 0070, 51416, 14071, 86299, 10808, 33179 #### [facility] [address] [place] [address], [facility] Potassium [Moles/Vol] 3.9 mmol/L Normal 3.5-5.1 [facility] Comment on above: Order Comment: No: D o not add to previous draw Performed By: #### 1 0070, 89147, 10063, 64237, 74302, 40181 #### [facility] [address] Sodium [Moles/Vol] 133 mmol/L Low 136-145 [facility] Comment on above: Order Comment: No: D o not add to previous draw Performed By: #### 1 0070, 94226, 41996, 27344, 45135, 98888 #### [facility] [address] Urea nitrogen [Mass/Vol] 10 mg/dL Normal 7-25 [facility] Comment on above: Order Comment: No: D o not add to previous draw Performed By: #### 1 0070, 35421, 27153, 03504, 33383, 84709 #### [facility] [address] [facility]. [address] CBC W/DIFFon 04-02-2020 ABS BASOPHILS 0.0 10*3/uL Normal 0.0-0.2 [facility] Comment on above: Order Comment: No: D o not add to previous draw Performed By: #### 1 0070, 02100, 18199, 93211, 50623, 64678 #### [facility] [address] [place] [address], [facility] ABS IMM GRANS 0.0 10*3/uL Normal 0.0-0.2 [facility] Comment on above: Order Comment: No: D o not add to previous draw Performed By: #### 1 0070, 76937, 61753, 00373, 01450, 58272 #### [facility] [address] [place] [address], [facility] ABS NEUTROPHILS 4.5 10*3/uL Normal 1.6-7.6 [facility] Comment on above: Order Comment: No: D o not add to previous draw Performed By: #### 1 0070, 78905, 63633, 69724, 51270, 08671 #### [facility] [address] [place] [address], [facility] Basophils/100 WBC (Bld) 0.2 % Normal 0.0-1.0 [facility] Comment on above: Order Comment: No: D o not add to previous draw Performed By: #### 1 0070, 09782, 67245, 88932, 30900, 22825 #### [facility] [address] [place] [address], [facility] Eosinophils (Bld) [#/Vol] 0.2 10*3/uL Normal 0.0-0.5 [facility] Comment on above: Order Comment: No: D o not add to previous draw Performed By: #### 1 0070, 26190, 62155, 75216, 87256, 89400 #### [facility] [address] [place] [address], [facility] Eosinophils/100 WBC (Bld) 3.6 % Normal 0.0-6.0 [facility] Comment on above: Order Comment: No: D o not add to previous draw Performed By: #### 1 0070, 77869, 55277, 89644, 26257, 39929 #### [facility] [address] [place] [address], [facility] Erythrocyte distribution width (RBC) [Ratio] 12.7 % Normal 11.5-15.0 [facility] Comment on above: Order Comment: No: D o not add to previous draw Performed By: #### 1 0070, 10707, 33553, 87176, 78663, 33979 #### [facility] [address] [place] [address], [facility] Hematocrit (Bld) [Volume fraction] 42.9 % Normal 36.0-45.0 [facility] Comment on above: Order Comment: No: D o not add to previous draw Performed By: #### 1 0070, 10022, 75266, 88115, 17099, 23992 #### [facility] [address] Hemoglobin (Bld) [Mass/Vol] 13.5 g/dL Normal 12.0-15.0 [facility] Comment on above: Order Comment: No: D o not add to previous draw Performed By: #### 1 0070, 38208, 43467, 08534, 97512, 17219 #### [facility] [address] [facility]. [address] IMMATURE GRANS 0.3 % Normal 0.0-1.0 [facility] Comment on above: Order Comment: No: D o not add to previous draw Performed By: #### 1 0070, 92400, 67943, 31974, 48651, 04795 #### [facility] [address] [place] [address], [facility] Lymphocytes (Bld) [#/Vol] 1.1 10*3/uL Low 1.2-4.0 [facility] Comment on above: Order Comment: No: D o not add to previous draw Performed By: #### 1 0070, 10960, 87798, 98015, 21914, 27439 #### [facility] [address] [place] [address], [facility] Lymphocytes/100 WBC (Bld) 18.0 % Low 20.0-45.0 [facility] Comment on above: Order Comment: No: D o not add to previous draw Performed By: #### 1 0070, 77603, 71496, 82529, 94942, 38478 #### [facility] [address] MCH (RBC) [Entitic mass] 27.4 pg Normal 27.0-33.0 [facility] Comment on above: Order Comment: No: D o not add to previous draw Performed By: #### 1 0070, 41493, 20571, 91503, 73702, 18571 #### [facility] [address] MCHC (RBC) [Mass/Vol] 31.5 g/dL Low 32.0-35.0 [facility] Comment on above: Order Comment: No: D o not add to previous draw Performed By: #### 1 0070, 28722, 98593, 26354, 32219, 19969 #### [facility] [address] MCV (RBC) [Entitic vol] 87.0 fL Normal 82.0-98.0 [facility] Comment on above: Order Comment: No: D o not add to previous draw Performed By: #### 1 0070, 14067, 71942, 87347, 84956, 82208 #### [facility] [address] [place] [address], [facility] Monocytes (Bld) [#/Vol] 0.3 10*3/uL Normal 0.1-1.0 [facility] Comment on above: Order Comment: No: D o not add to previous draw Performed By: #### 1 0070, 45760, 09824, 33891, 30824, 88995 #### [facility] [address] MONOS 5.5 % Normal 5.0-12.0 [facility] Comment on above: Order Comment: No: D o not add to previous draw Performed By: #### 1 0070, 28560, 22038, 72758, 84311, 95924 #### [facility] [address] [place] [address], [facility] Neutrophils/100 WBC (Bld) 72.4 % High 40.0-72.0 [facility] Comment on above: Order Comment: No: D o not add to previous draw Performed By: #### 1 0070, 89426, 25245, 71077, 15858, 14361 #### [facility] [address] [place] [address], [place] Nucleated RBC/100 WBC (Bld) [Ratio] 0 % Normal 0-0 [facility] Comment on above: Order Comment: No: D o not add to previous draw Performed By: #### 1 0070, 66151, 76057, 99780, 97230, 26552 #### [facility] [address] [place] [address], [facility] PLAT CNT 264 10*3/uL Normal 150-400 [facility] Comment on above: Order Comment: No: D o not add to previous draw Performed By: #### 1 0070, 39437, 55817, 94949, 45021, 63788 #### [facility] [address] [place] [id number], [facility] RBC (Bld) [#/Vol] 4.93 10*6/uL Normal 3.80-5.00 [facility] Comment on above: Order Comment: No: D o not add to previous draw Performed By: #### 1 0070, 60776, 55825, 48473, 97027, 29218 #### [facility] [address] [place] [address], [place] WBC (Bld) [#/Vol] 6.17 10*3/uL Normal 4.00-10.60 [facility] Comment on above: Order Comment: No: D o not add to previous draw Performed By: #### 1 0070, 94453, 86350, 49269, 31483, 28118 #### [facility] [address] [place] [address], [facility] MAGNESIUM BLOODon 04-02-2020 Magnesium [Mass/Vol] 2.0 mg/dL Normal 1.9-2.7 [facility] Comment on above: Order Comment: No: D o not add to previous draw Performed By: #### 1 0070, 71594, 97913, 83773, 75900, 65527 #### [facility] [address] [place] [address], [facility] PHOSPHORUS BLOODon 0 Phosphate [Mass/Vol] 3.1 mg/dL Normal 2.5-5.0 [facility] Comment on above: Order Comment: No: D o not add to previous draw Performed By: #### 1 0070, 09685, 89816, 66941, 40112, 79700 #### [facility] [address] POC GLUCOSE LABon 04-02-2020 Glucose [Mass/Vol] 134 mg/dL High 70-100 [facility] Comment on above: Performed By: #### 1 0070, 61824, 53593, 02788, 50510, 26882 #### [facility] [address] UFH HEPARIN ASSAYon 04-02-20 20 UNFRACTIONATED HEPARIN 0.91 IU/mL Critically high 0.30-0.7 0 [facility] Comment on above: Result Comment: Violet roxaban and Apixaban will interfere with the anti Xa assay used to monitor UFH and LMWH. RESULTS CHECKED AND CALLED. ACCURATELY READ BACK BY LYNN POLANCO, COLLEEN @ [phone] Performed By: #### 1 0070, 97550, 45197, 13064, 89583, 57176 #### [facility] [address] [place] [address], [facility] ALBUMIN BLOODon 04-01-2020 Albumin [Mass/Vol] 3.0 g/dL Low 3.5-5.7 [facility] Comment on above: Performed By: #### 1 0070, 40625, 36640, 28160, 96671, 99104 #### [facility] [address] [place] [address], [facility] BASIC METABOLIC PANELon 07-0 Calcium [Mass/Vol] 8.1 mg/dL Low 8.6-10.3 [facility] Comment on above: Order Comment: No: D o not add to previous draw Performed By: #### 1 0070, 57201, 39958, 67834, 13738, 54373 #### [facility] [address] [place] [address], [facility] Chloride [Moles/Vol] 105 mmol/L Normal 98-107 [facility] Comment on above: Order Comment: No: D o not add to previous draw Performed By: #### 1 0070, 29916, 72972, 26338, 96390, 58150 #### [facility] [address] [place] [address], [facility] CO2 [Moles/Vol] 26 mmol/L Normal 21-31 [facility] Comment on above: Order Comment: No: D o not add to previous draw Performed By: #### 1 0070, 19918, 97893, 54971, 63670, 33599 #### [facility] [address] [place] [address], [facility] Creatinine [Mass/Vol] 0.65 mg/dL Normal 0.60-1.20 [facility] Comment on above: Order Comment: No: D o not add to previous draw Performed By: #### 1 0070, 90931, 00282, 47618, 35542, 95471 #### [facility] [address] [place] [address], [facility] GFR/1.73 sq M predicted among blacks MDRD (S/P/Bld) [Vol rate/Area] mL/min/{1.73_m2} Normal >60 [facility] Comment on above: Order Comment: No: D o not add to previous draw Performed By: #### 1 0070, 71572, 50637, 75271, 32740, 28328 #### [facility] [address] [place] [address], [facility] GFR/1.73 sq M predicted among non-blacks MDRD (S/P/Bld) [Vol rate/Area] mL/min/{1.73_m2} Normal >60 [facility] Comment on above: Order Comment: No: D o not add to previous draw Performed By: #### 1 0070, 04239, 94627, 01458, 14719, 16202 #### [facility] [address] [place] [address], [place] Glucose [Mass/Vol] 87 mg/dL Normal 70-100 [facility] Comment on above: Order Comment: No: D o not add to previous draw Performed By: #### 1 0070, 08002, 29260, 54926, 85030, 58043 #### [facility] [address] [place] [address], [place] Potassium [Moles/Vol] 4.3 mmol/L Normal 3.5-5.1 [facility] Comment on above: Order Comment: No: D o not add to previous draw Performed By: #### 1 0070, 96504, 21407, 25018, 15460, 28852 #### [facility] [address] [place] [address], [place] Sodium [Moles/Vol] 136 mmol/L Normal 136-145 [facility] Comment on above: Order Comment: No: D o not add to previous draw Performed By: #### 1 0070, 97548, 57207, 99873, 61519, 17849 #### [facility] [address] [place] [address], [place] Urea nitrogen [Mass/Vol] 8 mg/dL Normal 7-25 [facility] Comment on above: Order Comment: No: D o not add to previous draw Performed By: #### 1 0070, 17955, 10852, 19949, 54724, 72532 #### [facility] [facility] [address] [place] [address], [facility] CBC W/DIFFon 04-01-2020 ABS BASOPHILS 0.0 10*3/uL Normal 0.0-0.2 [facility] Comment on above: Order Comment: No: D o not add to previous draw Performed By: #### 1 0070, 46187, 92798, 28477, 29974, 99465 #### [facility] [address] [place] [address], [facility] ABS IMM GRANS 0.0 10*3/uL Normal 0.0-0.2 [facility] Comment on above: Order Comment: No: D o not add to previous draw Performed By: #### 1 0070, 62864, 29713, 90402, 87589, 57618 #### [facility] [address] ABS NEUTROPHILS 3.4 10*3/uL Normal 1.6-7.6 [facility] Comment on above: Order Comment: No: D o not add to previous draw Performed By: #### 1 0070, 11255, 60249, 67927, 46400, 00547 #### [facility] [address] [place] [address], [facility] Basophils/100 WBC (Bld) 0.2 % Normal 0.0-1.0 [facility] Comment on above: Order Comment: No: D o not add to previous draw Performed By: #### 1 0070, 13291, 58360, 20640, 45812, 70213 #### [facility] [address] [place] [address], [facility] Eosinophils (Bld) [#/Vol] 0.1 10*3/uL Normal 0.0-0.5 [facility] Comment on above: Order Comment: No: D o not add to previous draw Performed By: #### 1 0070, 68759, 80301, 63257, 33390, 69186 #### [facility] [address] [place] [address], [facility] Eosinophils/100 WBC (Bld) 2.6 % Normal 0.0-6.0 [facility] Comment on above: Order Comment: No: D o not add to previous draw Performed By: #### 1 0070, 30083, 21823, 61848, 35740, 03667 #### [facility] [address] [place], [place] [id number] [place] [address] Erythrocyte distribution width (RBC) [Ratio] 13.0 % Normal 11.5-15.0 [facility] Comment on above: Order Comment: No: D o not add to previous draw Performed By: #### 1 0070, 19718, 08437, 59771, 04859, 85254 #### [facility] [address] [place] [address] Hematocrit (Bld) [Volume fraction] 40.9 % Normal 36.0-45.0 [facility] Comment on above: Order Comment: No: D o not add to previous draw Performed By: #### 1 0070, 74800, 74619, 66962, 62230, 64855 #### [facility] [address] [place] [address], [facility] Hemoglobin (Bld) [Mass/Vol] 12.8 g/dL Normal 12.0-15.0 [facility] Comment on above: Order Comment: No: D o not add to previous draw Performed By: #### 1 0070, 94620, 10019, 06205, 49272, 99959 #### [facility] [address] [place] [address], [facility] IMMATURE GRANS 0.6 % Normal 0.0-1.0 [facility] Comment on above: Order Comment: No: D o not add to previous draw Performed By: #### 1 0070, 84305, 85518, 54361, 48651, 45898 #### [facility] [address] [place] [address], [facility] Lymphocytes (Bld) [#/Vol] 1.2 10*3/uL Normal 1.2-4.0 [facility] Comment on above: Order Comment: No: D o not add to previous draw Performed By: #### 1 0070, 04423, 00758, 30688, 58951, 22298 #### [facility] [address] [place] [address], [facility] Lymphocytes/100 WBC (Bld) 23.7 % Normal 20.0-45.0 [facility] Comment on above: Order Comment: No: D o not add to previous draw Performed By: #### 1 0070, 69662, 36729, 26337, 76161, 93675 #### [facility] [address] [place] [address], [facility] MCH (RBC) [Entitic mass] 27.4 pg Normal 27.0-33.0 [facility] Comment on above: Order Comment: No: D o not add to previous draw Performed By: #### 1 0070, 69156, 94349, 42857, 81709, 77384 #### [facility] [address] [place] [address], [facility] MCHC (RBC) [Mass/Vol] 31.3 g/dL Low 32.0-35.0 [facility] Comment on above: Order Comment: No: D o not add to previous draw Performed By: #### 1 0070, 49479, 56310, 59093, 48233, 85771 #### [facility] [address] [place] [address], [facility] MCV (RBC) [Entitic vol] 87.6 fL Normal 82.0-98.0 [facility] Comment on above: Order Comment: No: D o not add to previous draw Performed By: #### 1 0070, 99494, 54570, 19060, 72302, 07978 #### [facility] [address] [place] [address], [facility] Monocytes (Bld) [#/Vol] 0.3 10*3/uL Normal 0.1-1.0 [facility] Comment on above: Order Comment: No: D o not add to previous draw Performed By: #### 1 0070, 74595, 49312, 41584, 77005, 72269 #### [facility] [address] [place] [address], [facility] MONOS 5.4 % Normal 5.0-12.0 [facility] Comment on above: Order Comment: No: D o not add to previous draw Performed By: #### 1 0070, 28830, 64274, 88298, 78012, 61670 #### [facility] [address] [place] [address], [facility] Neutrophils/100 WBC (Bld) 67.5 % Normal 40.0-72.0 [facility] Comment on above: Order Comment: No: D o not add to previous draw Performed By: #### 1 0070, 36050, 35544, 74878, 92686, 45437 #### [facility] [address] [place] [address], [facility] Nucleated RBC/100 WBC (Bld) [Ratio] 0 % Normal 0-0 [facility] Comment on above: Order Comment: No: D o not add to previous draw Performed By: #### 1 0070, 11212, 46794, 82101, 95602, 57774 #### [facility] [address] [place] [address], [facility] PLAT CNT 237 10*3/uL Normal 150-400 [facility] Comment on above: Order Comment: No: D o not add to previous draw Performed By: #### 1 0070, 71075, 93527, 70186, 26022, 02552 #### [facility] [address] [place], [place] [id number] [place] [address] RBC (Bld) [#/Vol] 4.67 10*6/uL Normal 3.80-5.00 [facility] Comment on above: Order Comment: No: D o not add to previous draw Performed By: #### 1 0070, 85097, 28368, 46431, 24761, 30965 #### [facility] [address] [facility] [address], [facility] WBC (Bld) [#/Vol] 4.98 10*3/uL Normal 4.00-10.60 [facility] Comment on above: Order Comment: No: D o not add to previous draw Performed By: #### 1 0070, 30804, 41859, 29803, 56357, 47307 #### [facility] [address] [facility] [place], [place] [id number] [address] CHEST AND LATERALon 04-01-20 CHEST AND LATERAL [facility] Department of Radiology [address] [place], [place] [address] Patient Name: EMIGDIO APODACA : 1965 Sex: F Age: Race: White Pt. Location: [id number] Patient Status: I Ordered Date: 04/01/2020 7:00:00 [...] reports Electronically signed: Shari Arteaga. Transcribed by: [email or web address], User Resident: ANNE VEGA Electronically Signed by: SHARI ARTEAGA @ 04/01/2020 10:12 AM I personally read this/these film(s) with this resident Normal [facility] Comment on above: Order Comment: No: D o not add to previous draw MAGNESIUM BLOODon 04-01-2020 Magnesium [Mass/Vol] 2.1 mg/dL Normal 1.9-2.7 [facility] Comment on above: Order Comment: No: D o not add to previous draw Performed By: #### 1 0070, 27132, 74623, 39998, 70834, 19032 #### [facility] [address] [place] [address], [facility] APTTon 03-31-2020 aPTT Coag (Bld) [Time] 28.3 s Normal 25.0-35.0 [facility] Comment on above: Order Comment: [...] THIS PURPOSE. Performed By: #### 1 0070, 01907, 46181, 63278, 62619, 37223 #### [facility] [address] [place] [address], [facility] BASIC METABOLIC PANELon 06-3 0-2020 Calcium [Mass/Vol] 7.8 mg/dL Low 8.6-10.3 [facility] Comment on above: Order Comment: No: D o not add to previous draw Performed By: #### 1 0070, 38417, 91872, 47849, 93679, 29474 #### [facility] [address] [place] [address], [facility] Chloride [Moles/Vol] 108 mmol/L High 98-107 [facility] Comment on above: Order Comment: No: D o not add to previous draw Performed By: #### 1 0070, 62415, 86921, 85897, 25085, 26639 #### [facility] [address] [place] [address], [facility] CO2 [Moles/Vol] 26 mmol/L Normal 21-31 [facility] Comment on above: Order Comment: No: D o not add to previous draw Performed By: #### 1 0070, 25982, 54585, 54995, 32649, 37827 #### [facility] [address] [place] [id number], [facility] Creatinine [Mass/Vol] 0.76 mg/dL Normal 0.60-1.20 [facility] Comment on above: Order Comment: No: D o not add to previous draw Performed By: #### 1 0070, 38372, 96826, 03501, 48801, 24307 #### [facility] [address] [place] [address], [place] GFR/1.73 sq M predicted among blacks MDRD (S/P/Bld) [Vol rate/Area] mL/min/{1.73_m2} Normal >60 [facility] Comment on above: Order Comment: No: D o not add to previous draw Performed By: #### 1 0070, 10705, 33851, 73314, 04872, 74544 #### [facility] [address] [place] [address], [place] GFR/1.73 sq M predicted among non-blacks MDRD (S/P/Bld) [Vol rate/Area] mL/min/{1.73_m2} Normal >60 [facility] Comment on above: Order Comment: No: D o not add to previous draw Performed By: #### 1 0070, 72756, 63399, 97896, 60275, 26267 #### [facility] [address] [place] [address], [place] Glucose [Mass/Vol] 97 mg/dL Normal 70-100 [facility] Comment on above: Order Comment: No: D o not add to previous draw Performed By: #### 1 0070, 03414, 07382, 66284, 76458, 79752 #### [facility] [address] [place] [address], [place] Potassium [Moles/Vol] 3.2 mmol/L Low 3.5-5.1 [facility] Comment on above: Order Comment: No: D o not add to previous draw Performed By: #### 1 0070, 64026, 40048, 52212, 93661, 69472 #### [facility] [address] [place] [address], [place] Sodium [Moles/Vol] 140 mmol/L Normal 136-145 [facility] Comment on above: Order Comment: No: D o not add to previous draw Performed By: #### 1 0070, 82097, 21159, 22391, 29608, 95855 #### [facility] [address] Urea nitrogen [Mass/Vol] 15 mg/dL Normal 7-25 [facility] Comment on above: Order Comment: No: D o not add to previous draw Performed By: #### 1 0070, 04470, 60182, 10285, 63532, 35624 #### [facility] [address] CBC W/DIFFon 03-31-2020 ABS BASOPHILS 0.0 10*3/uL Normal 0.0-0.2 [facility] Comment on above: Order Comment: No: D o not add to previous draw Performed By: #### 1 0070, 97601, 55224, 42881, 10306, 09700 #### [facility] [address] ABS IMM GRANS 0.0 10*3/uL Normal 0.0-0.2 [facility] Comment on above: Order Comment: No: D o not add to previous draw Performed By: #### 1 0070, 89137, 63497, 71489, 59798, 52564 #### [facility] [address] ABS NEUTROPHILS 3.2 10*3/uL Normal 1.6-7.6 [facility] Comment on above: Order Comment: No: D o not add to previous draw Performed By: #### 1 0070, 43491, 53656, 98476, 51636, 07040 #### [facility] [address] Basophils/100 WBC (Bld) 0.2 % Normal 0.0-1.0 [facility] Comment on above: Order Comment: No: D o not add to previous draw Performed By: #### 1 0070, 02838, 09095, 30776, 49708, 58814 #### [facility] [address] [place] [address], [facility] Eosinophils (Bld) [#/Vol] 0.0 10*3/uL Normal 0.0-0.5 [facility] Comment on above: Order Comment: No: D o not add to previous draw Performed By: #### 1 0070, 48010, 66454, 78363, 76538, 40278 #### [facility] [address] [place] [address], [facility] Eosinophils/100 WBC (Bld) 0.4 % Normal 0.0-6.0 [facility] Comment on above: Order Comment: No: D o not add to previous draw Performed By: #### 1 0070, 38420, 79703, 20149, 66405, 36157 #### [facility] [address] Erythrocyte distribution width (RBC) [Ratio] 13.0 % Normal 11.5-15.0 [facility] Comment on above: Order Comment: No: D o not add to previous draw Performed By: #### 1 0070, 84157, 17068, 85297, 74811, 35453 #### [facility] [address] [place] [address], [facility] Hematocrit (Bld) [Volume fraction] 34.4 % Low 36.0-45.0 [facility] Comment on above: Order Comment: No: D o not add to previous draw Performed By: #### 1 0070, 51486, 84140, 00164, 24186, 05602 #### [facility] [address] [place] [address], [facility] Hemoglobin (Bld) [Mass/Vol] 10.8 g/dL Low 12.0-15.0 [facility] Comment on above: Order Comment: No: D o not add to previous draw Performed By: #### 1 0070, 79952, 43561, 55343, 72273, 57464 #### [facility] [address] [place] [address], [facility] IMMATURE GRANS 0.4 % Normal 0.0-1.0 [facility] Comment on above: Order Comment: No: D o not add to previous draw Performed By: #### 1 0070, 39088, 60693, 33731, 87526, 01916 #### [facility] [address] [place] [address], [facility] Lymphocytes (Bld) [#/Vol] 1.2 10*3/uL Normal 1.2-4.0 [facility] Comment on above: Order Comment: No: D o not add to previous draw Performed By: #### 1 0070, 09324, 37619, 43089, 05543, 63820 #### [facility] [address] [place] [address], [facility] Lymphocytes/100 WBC (Bld) 25.7 % Normal 20.0-45.0 [facility] Comment on above: Order Comment: No: D o not add to previous draw Performed By: #### 1 0070, 67377, 10696, 49136, 30843, 35286 #### [facility] [address] [place] [address], [facility] MCH (RBC) [Entitic mass] 27.5 pg Normal 27.0-33.0 [facility] Comment on above: Order Comment: No: D o not add to previous draw Performed By: #### 1 0070, 97512, 89433, 96287, 91316, 93441 #### [facility] [address] [place] [address], [facility] MCHC (RBC) [Mass/Vol] 31.4 g/dL Low 32.0-35.0 [facility] Comment on above: Order Comment: No: D o not add to previous draw Performed By: #### 1 0070, 51549, 28093, 46660, 80826, 91282 #### [facility] [address] [place] [address], [facility] MCV (RBC) [Entitic vol] 87.5 fL Normal 82.0-98.0 [facility] Comment on above: Order Comment: No: D o not add to previous draw Performed By: #### 1 0070, 06201, 40094, 79839, 54289, 16589 #### [facility] [address] [place] [address], [facility] Monocytes (Bld) [#/Vol] 0.3 10*3/uL Normal 0.1-1.0 [facility] Comment on above: Order Comment: No: D o not add to previous draw Performed By: #### 1 0070, 09716, 52278, 26653, 81742, 59581 #### [facility] [address] MONOS 6.2 % Normal 5.0-12.0 [facility] Comment on above: Order Comment: No: D o not add to previous draw Performed By: #### 1 0070, 42538, 07566, 22997, 79746, 65543 #### [facility] [address] [place] [address], [facility] Neutrophils/100 WBC (Bld) 67.1 % Normal 40.0-72.0 [facility] Comment on above: Order Comment: No: D o not add to previous draw Performed By: #### 1 0070, 39482, 50347, 74318, 35706, 52688 #### [facility] [address] [place] [address], [facility] Nucleated RBC/100 WBC (Bld) [Ratio] 0 % Normal 0-0 [facility] Comment on above: Order Comment: No: D o not add to previous draw Performed By: #### 1 0070, 78265, 01729, 88044, 99328, 58651 #### [facility] [address] [place] [address], [facility] PLAT CNT 210 10*3/uL Normal 150-400 [facility] Comment on above: Order Comment: No: D o not add to previous draw Performed By: #### 1 0070, 35570, 15197, 68200, 90478, 24130 #### [facility] [address] [place], [place] [address] [place] [address] RBC (Bld) [#/Vol] 3.93 10*6/uL Normal 3.80-5.00 [facility] Comment on above: Order Comment: No: D o not add to previous draw Performed By: #### 1 0070, 06443, 21355, 00310, 21200, 33570 #### [facility] [address] [facility]. [address] WBC (Bld) [#/Vol] 4.71 10*3/uL Normal 4.00-10.60 [facility] Comment on above: Order Comment: No: D o not add to previous draw Performed By: #### 1 0070, 25773, 89571, 34692, 04720, 58599 #### [facility] [address] [facility]. [address] Cardiovascular Lab Reporton 03-31-2020 Cardiovascular Lab Report [facility]: [id number] Department of Physician: Rebecca Thomas M.D. Medicine Service Date: 03/31/2020 Division of Birthdate: 1965 Cardiology Room #: 3AB [id number] Adult Cardiovascular Services [facility] [address] [place] [address] Cardiovascular Laboratory Report INDICATIONS FOR PACEMAKER PLACEMENT: [...] silk suture. They were connected to a [employer] Edora dual-chamber pacing system. This was placed [...] Thomas M.D. Date Trans: 03/31/2020 03:35 P/arturoo [id number] cc: Tony Hines M.D. Heart Failure/ Transplant Mailstop [address] [place] [address] Normal [facility] MAGNESIUM BLOODon 03-31-2020 Magnesium [Mass/Vol] 1.8 mg/dL Low 1.9-2.7 [facility] Comment on above: Order Comment: No: D o not add to previous draw Performed By: #### 1 0070, 56658, 71005, 22880, 40401, 19462 #### [facility] [address] [facility]. [address] PHOSPHORUS BLOODon 0 Phosphate [Mass/Vol] 2.7 mg/dL Normal 2.5-5.0 [facility] Comment on above: Order Comment: No: D o not add to previous draw Performed By: #### 1 0070, 08286, 92728, 39782, 15745, 06032 #### [facility] [address] [facility]. [address] PROTHROMBIN TIMEon 0 INR Coag (PPP) [Relative time] 1.11 {INR} Normal 0.91-1.16 [facility] Comment on above: Order Comment: [...] CHEST 1995;108:231S-246S. Performed By: #### 1 0070, 71644, 67118, 32617, 57060, 46755 #### [facility] [address] PT Coag (PPP) [Time] 14.3 s Normal 12.3-14.8 [facility] Comment on above: Order Comment: No: D o not add to previous draw Result Comment: ALL RESULTS MUST BE INTERPRETED WITH RESPECT TO BLOOD DRAWING ARTIFACT OR DILUTION ERROR OF ANTICOAGULANT AT THE TIME OF SAMPLING. Performed By: #### 1 0070, 65107, 10937, 37363, 99311, 06590 #### [facility] [address] [facility]. [address] *SARS-CoV-2 COVID-19on 03-30 [id number] Not Detected Normal Not Detected [facility] Comment on above: Order Comment: No: D o not add to previous draw Performed By: #### 1 0070, 05695, 68520, 11343, 04451, 88901 #### [facility] [address] [place] [address], [facility] APTTon 03-30-2020 aPTT Coag (Bld) [Time] 24.9 s Low 25.0-35.0 [facility] Comment on above: Order Comment: [...] THIS PURPOSE. Performed By: #### 5 7307, 74051 #### [facility] [address] BASIC METABOLIC PANELon - Calcium [Mass/Vol] 8.9 mg/dL Normal 8.6-10.3 [facility] Comment on above: Order Comment: No: D o not add to previous draw Performed By: #### 1 0070, 82972, 03701, 60241, 08167, 03418 #### [facility] [address] [place] [address], [facility] Chloride [Moles/Vol] 110 mmol/L High 98-107 [facility] Comment on above: Order Comment: No: D o not add to previous draw Performed By: #### 1 0070, 58914, 62742, 59460, 83590, 56893 #### [facility] [address] [place] [address], [facility] CO2 [Moles/Vol] 26 mmol/L Normal 21-31 [facility] Comment on above: Order Comment: No: D o not add to previous draw Performed By: #### 1 0070, 02318, 47751, 77794, 49456, 11464 #### [facility] [address] [place] [address], [facility] Creatinine [Mass/Vol] 0.86 mg/dL Normal 0.60-1.20 [facility] Comment on above: Order Comment: No: D o not add to previous draw Performed By: #### 1 0070, 15331, 54282, 63926, 42709, 82226 #### [facility] [address] [facility] [address], [facility] GFR/1.73 sq M predicted among blacks MDRD (S/P/Bld) [Vol rate/Area] mL/min/{1.73_m2} Normal >60 [facility] Comment on above: Order Comment: No: D o not add to previous draw Performed By: #### 1 0070, 96343, 10840, 40356, 30358, 38748 #### [facility] [address] [place] [address], [facility] GFR/1.73 sq M predicted among non-blacks MDRD (S/P/Bld) [Vol rate/Area] mL/min/{1.73_m2} Normal >60 [facility] Comment on above: Order Comment: No: D o not add to previous draw Performed By: #### 1 0070, 83352, 28971, 84109, 95393, 92595 #### [facility] [address] [place] [address], [place] Glucose [Mass/Vol] 119 mg/dL High 70-100 [facility] Comment on above: Order Comment: No: D o not add to previous draw Performed By: #### 1 0070, 45608, 00891, 92315, 97558, 25565 #### [facility] [address] [place] [address], [facility] Potassium [Moles/Vol] 3.5 mmol/L Normal 3.5-5.1 [facility] Comment on above: Order Comment: No: D o not add to previous draw Performed By: #### 1 0070, 18808, 17193, 96200, 90534, 37064 #### [facility] [address] [place] [address], [place] Sodium [Moles/Vol] 142 mmol/L Normal 136-145 [facility] Comment on above: Order Comment: No: D o not add to previous draw Performed By: #### 1 0070, 26706, 28791, 08124, 63352, 61771 #### [facility] [address] [place] [address], [place] Urea nitrogen [Mass/Vol] 13 mg/dL Normal 7-25 [facility] Comment on above: Order Comment: No: D o not add to previous draw Performed By: #### 1 0070, 05327, 44011, 65884, 50520, 75355 #### [facility] [address] [place] [address], [facility] CBC W/DIFFon 03-30-2020 ABS BASOPHILS 0.0 10*3/uL Normal 0.0-0.2 [facility] Comment on above: Performed By: #### 5 0103 #### [facility] [address] [facility]. [address] ABS IMM GRANS 0.0 10*3/uL Normal 0.0-0.2 [facility] Comment on above: Performed By: #### 5 0103 #### [facility] [address] ABS NEUTROPHILS 5.7 10*3/uL Normal 1.6-7.6 [facility] Comment on above: Performed By: #### 5 0103 #### [facility] [address] Basophils/100 WBC (Bld) 0.0 % Normal 0.0-1.0 [facility] Comment on above: Performed By: #### 5 0103 #### [facility] [address] [place] [address], [facility] Eosinophils (Bld) [#/Vol] 0.0 10*3/uL Normal 0.0-0.5 [facility] Comment on above: Performed By: #### 5 3 #### [facility] [address] [place] [address], [facility] Eosinophils/100 WBC (Bld) 0.0 % Normal 0.0-6.0 [facility] Comment on above: Performed By: #### 5 3 #### [facility] [address] [place] [address], [facility] Erythrocyte distribution width (RBC) [Ratio] 12.9 % Normal 11.5-15.0 [facility] Comment on above: Performed By: #### 5 0103 #### [facility] 3000 [facility]. [address] Hematocrit (Bld) [Volume fraction] 36.1 % Normal 36.0-45.0 [facility] Comment on above: Performed By: #### 5 0103 #### [facility] [address] [facility] [place] [address], [facility] Hemoglobin (Bld) [Mass/Vol] 11.5 g/dL Low 12.0-15.0 [facility] Comment on above: Performed By: #### 5 0103 #### [facility] [address] IMMATURE GRANS 0.5 % Normal 0.0-1.0 [facility] Comment on above: Performed By: #### 5 0103 #### [facility] [address] Lymphocytes (Bld) [#/Vol] 0.6 10*3/uL Low 1.2-4.0 [facility] Comment on above: Performed By: #### 5 0103 #### [facility] [address] Lymphocytes/100 WBC (Bld) 9.3 % Low 20.0-45.0 [facility] Comment on above: Performed By: #### 5 0103 #### [facility] [address] [facility]. [address] MCH (RBC) [Entitic mass] 27.4 pg Normal 27.0-33.0 [facility] Comment on above: Performed By: #### 5 3 #### [facility] [address] MCHC (RBC) [Mass/Vol] 31.9 g/dL Low 32.0-35.0 [facility] Comment on above: Performed By: #### 102 #### [facility] [address] [facility] [place] [address], [facility] MCV (RBC) [Entitic vol] 86.0 fL Normal 82.0-98.0 [facility] Comment on above: Performed By: #### 102 #### [facility] [address] [facility] [place] [address], [facility] Monocytes (Bld) [#/Vol] 0.2 10*3/uL Normal 0.1-1.0 [facility] Comment on above: Performed By: #### 102 #### [facility] [address] MONOS 2.5 % Low 5.0-12.0 [facility] Comment on above: Performed By: #### 102 #### [facility] [address] Neutrophils/100 WBC (Bld) 87.7 % High 40.0-72.0 [facility] Comment on above: Performed By: #### 102 #### [facility] [address] Nucleated RBC/100 WBC (Bld) [Ratio] 0 % Normal 0-0 [facility] Comment on above: Performed By: #### 5 102 #### [facility] [address] [facility] [place] [address], [facility] PLAT CNT 261 10*3/uL Normal 150-400 [facility] Comment on above: Performed By: #### 102 #### [facility] [address] [place] [address], [facility] RBC (Bld) [#/Vol] 4.20 10*6/uL Normal 3.80-5.00 [facility] Comment on above: Performed By: #### 102 #### [facility] [address] WBC (Bld) [#/Vol] 6.47 10*3/uL Normal 4.00-10.60 [facility] Comment on above: Performed By: #### 5 0103 #### [facility] [address] [facility] [employer] FREE T4on 03-30-2020 Free T4 [Mass/Vol] 1.48 ng/dL Normal 0.71-1.85 [facility] Comment on above: Performed By: #### 1 0070, 87781, 61235, 86339, 22707, 42132 #### [facility] [address] [facility]. [address] MAGNESIUM BLOODon 03-30-2020 Magnesium [Mass/Vol] 2.0 mg/dL Normal 1.9-2.7 [facility] Comment on above: Order Comment: No: D o not add to previous draw Performed By: #### 1 0070, 93806, 81549, 17372, 70516, 85983 #### [facility] [address] [place] [address], [facility] PHOSPHORUS BLOODon 0 Phosphate [Mass/Vol] 2.8 mg/dL Normal 2.5-5.0 [facility] Comment on above: Order Comment: No: D o not add to previous draw Performed By: #### 1 0070, 21012, 00337, 73850, 84385, 64204 #### [facility] [address] [place] [address], [facility] PROTHROMBIN TIMEon 0 INR Coag (PPP) [Relative time] 1.21 {INR} High 0.91-1.16 [facility] Comment on above: Order Comment: [...] CHEST 1995;108:231S-246S. Performed By: #### 5 7307, 19247 #### [facility] [address] PT Coag (PPP) [Time] 15.4 s High 12.3-14.8 [facility] Comment on above: Order Comment: No: D o not add to previous draw Result Comment: ALL RESULTS MUST BE INTERPRETED WITH RESPECT TO BLOOD DRAWING ARTIFACT OR DILUTION ERROR OF ANTICOAGULANT AT THE TIME OF SAMPLING. Performed By: #### 5 7307, 64620 #### [facility] [address] [place] [address], [facility] TROPONIN-Ion 03-30-2020 Troponin I.cardiac [Mass/Vol] 0.02 ng/mL Normal 0.00-0.04 [facility] Comment on above: Order Comment: No: D o not add to previous draw Result Comment: REFE RENCE RANGES: 0.00 - 0.04 ng/ml NORMAL 0.05 - 0.50 ng/ml INDETERMINATE > 0.50 ng/ml CONSISTENT WITH AN M.I. Performed By: #### 1 0070, 09709, 18094, 85948, 75115, 40008 #### [facility] [address] [place] [address], [facility] Troponin I.cardiac [Mass/Vol] 0.04 ng/mL Normal 0.00-0.04 [facility] Comment on above: Order Comment: No: D o not add to previous draw Result Comment: REFE RENCE RANGES: 0.00 - 0.04 ng/ml NORMAL 0.05 - 0.50 ng/ml INDETERMINATE > 0.50 ng/ml CONSISTENT WITH AN M.I. Performed By: #### 3 5200 #### [facility] [address] [facility]. [address] Troponin I.cardiac [Mass/Vol] 0.04 ng/mL Normal 0.00-0.04 [facility] Comment on above: Order Comment: No: D o not add to previous draw Result Comment: REFE RENCE RANGES: 0.00 - 0.04 ng/ml NORMAL 0.05 - 0.50 ng/ml INDETERMINATE > 0.50 ng/ml CONSISTENT WITH AN M.I. Performed By: #### 1 0070, 02687, 95937, 87212, 48701, 47798 #### [facility] [address] TSH3 WITH REFLEX FT4on 03-30 TSH 3RD GENERATION 0.02 uIU/mL Low 0.34-5.60 [facility] Comment on above: Performed By: #### 1 0070, 67758, 69795, 13661, 89891, 19402 #### [facility] [address] [facility]. [address] Vital Signs Date Time Vital Sign Value Performing Clinician Patrick chen 08-12-2022 15:32-0500 Body temperature 98.1 [degF] MD Tony Turner Work Phone: [facility] 08-12-2022 15:32-0500 Diastolic blood pressure 69 mm[Hg] MD Tony Turner Work Phone: [facility] 08-12-2022 15:32-0500 Heart rate 78 /min MD Tony Turner Work Phone: [facility] 08-12-2022 15:32-0500 Respiratory rate 16 /min MD Tony Turner Work Phone: [facility] 08-12-2022 15:32-0500 SaO2% (BldA) [Mass fraction] 94 % MD Tony Turner Work Phone: [facility] 08-12-2022 15:32-0500 Systolic blood pressure 129 mm[Hg] MD Tony Turner Work Phone: [facility] 08-12-2022 11:00-0500 Inhaled oxygen flow rate 3 L/min MD Tony Turner Work Phone: [facility] 08-11-2022 12:39-0500 Body height 152.4 cm MD Tony Turner Work Phone: [facility] 08-11-2022 06:00-0500 Body weight 44.9 kg MD Tony Turner Work Phone: [facility] 08-10-2022 15:03-0500 Body mass index (BMI) [Ratio] 19.1 kg/m2 MD Tony Turner Work Phone: [facility] 08-03-2022 14:27-0400 Body weight 0 kg MD Tony Turner Work Phone: [facility] Encounters Encounter Date Encounter Type Care Provider Facility Start: 10-24-2023 End: 10-24-2023 ambulatory [facility] Start: 10-23-2023 ambulatory Alejandro Flaherty acility:[facility] Start: 04-26-2023 End: 04-26-2023 ambulatory [facility] Start: 01-03-2023 End: 01-07-2023 Evaluation and management of inpatient DR TONY TURNER . Facility:[facility] Start: 11-01-2022 End: 11-02-[address] TONY TURNER . Facility:[facility] Start: 10-25-2022 End: 10-25[facility]: 09-30-2022 End: 10-01-[address] ROSALINA RESENDIZ Facility:[facility] Start: 09-02-2022 End: 09-02-2022 ambulatory MD Tony Turner Work Phone: [facility] Work Phone: Start: 09-02-2022 End: 09-02-2022 Patient encounter procedure MD Tony Turner Work Phone: [facility] Start: 08-25-2022 End: 08-25-[address] ROSALINA RESENDIZ Facility:[facility] Start: 08-10-2022 End: 08-12-2022 Admission to same day surgery center MD Tony Turner Work Phone: [facility] Start: 08-10-2022 End: 08-12-2022 ambulatory MD Tony Turner Work Phone: [facility] Work Phone: Start: 08-08-2022 End: 08-08-2022 ambulatory MD Tony Turner Work Phone: [facility] Work Phone: Start: 08-08-2022 End: 08-08-2022 Departed Referred MD Tony Turner Work Phone: [facility] Start: 08-05-2022 End: 08-05-2022 ambulatory MD Tony Turner Work Phone: [facility] Work Phone: Start: 08-05-2022 End: 08-05-2022 Patient encounter procedure MD Tony Turner Work Phone: [facility] Start: 07-30-2022 End: 07-30-[address] ROSALINA RESENDIZ Facility:[facility] Start: 07-04-2022 End: 07-06-[address] TONY Siddiqui Facility:[facility] Start: 07-04-2022 End: 07-04-[address] ALBERTO FERRO Facility:[facility] Start: 06-29-2022 Encounter for preprocedural laboratory examination NADEGE GARDNER . [facility] Start: 06-27-2022 End: 06-28-2022 ambulatory NADEGE [...] Evaluation and management of inpatient EMMY RODRIGUEZD Facility:[facility] Procedures Date Procedure Procedure Detail Performing [...] Date Care Activity Detail Author Start: 08-12-2022 [facility] Start: 08-10-2022 Consultation [facility] Start: 08-10-2022 End: 08-10-2022 [facility] Acid Fast Bacilli Cu lture & Smear Acid Fast Bacilli Culture & Smear [facility] Anaerobic microbial culture Anaerobic Culture [facility] Bacteria identified in Urine by Culture Urine Culture [facility] Chlamydia trachomati s [Presence] in Unspecified specimen by Organism specific culture [facility] Work Phone: Chlamydia trachomati s [Presence] in Unspecified specimen by Organism specific culture [facility] Fungal Culture Result 1 Fungal C ulture Result 1 [facility] Fungus identified in Unspecified specimen by Culture [facility] Work Phone: Mycobacterium sp identified in Unspecified specimen by Organism specific culture [facility] Work Phone: Mycology Culture Mycology Culture [facility] Patient referral [facility] Work Phone: [facility] Payers Date Payer Category Payer Self-pay 1965 Unknown [id number] 2.16.8 [id number] 1965 Unknown [id number] 2.16.84 [id number] 1965 Unknown [id number] 2.16.84 [id number] 1964 Unknown [id number] 2.16.84 0.1.219991.3.579.2.593 1964 Unknown [id number] 2.16.84 0.1.527414.3.579.2.593 1964 Unknown [id number] 2.16.84 0.1.162922.3.579.2.593 1964 Unknown [id number] 2.16.84 0.1.255226.3.579.2.593 1964 Unknown [id number] 2.16.84 0.1.719840.3.579.2.593 1964 Unknown [id number] 2.16.84 0.1.930992.3.579.2.593 1964 Unknown [id number] 2.16.84 0.1.592878.3.579.2.593 1964 Unknown [id number] 2.16.84 0.1.001371.3.579.2.593 1964 Unknown [id number] 2.16.84 0.1.437804.3.579.2.593 1964 Unknown [id number] 2.16.84 0.1.367233.3.579.2.593 1964 Unknown [id number] 2.16.84 0.1.961932.3.579.2.593 1964 Unknown [id number] 2.16.84 0.1.591540.3.579.2.593 1960 Self-pay [id number] 1960 Unknown [id number] Unknown [id number] 2.16.8 [id number] Social History Date Type Detail Facility Tobacco smoking stat [facility] Unknown if ever smoked [facility] Work Phone: Start: 1965 Sex Assigned At Female F [facility] Start: 08-10-2022 [facility] Medical Equipment Procedure Code Equipment Code Equipment Origin al Text Equipment Identifier Dates Thoracotomy Surgical adhesive/sealant, human-derived [id number] FDA Start: 08-10-2022 Goals Date Patient Goal Desired Activity /State Functional Status Date Assessment Result Facility 08-12-2022 Functional status Patient at Baseline [facility] Work Phone: Mental Status Date Assessment Result Facility 08-12-2022 Cognitive function Cognitive Sta tus Patient at Baseline [facility] Work Phone: Clinical Notes 08-10-2022 [...] and has not been seen by any gerontology aide since pacemaker placement in 2019 ECG 01/02/23 [...] normal upstroke, n (more content not included)... [facility] 10-24-2023 Note Patient here for fol low up echo, stress test, and device check. Review of Systems Constitutional: Positive for malaise/fatigue. Cardiovascular: Positive for chest pain and dyspnea on exertion. Respiratory: Positive for cough. Musculoskeletal: Positive for arthritis, back pain and myalgias. All other systems reviewed and are negative. [facility] 05-03-2023 Note -CT statin [facility] 05-03-2023 Note - Biotronik dual-bryce mber PPM implanted [address] Thomas - normal device function and stable lead thresholds, device checks as scheduled [facility] 05-03-2023 [facility] -on inhalers -stable -follow up with pcp [facility] 04-26-2023 Note Patient here for fol low [...] All other systems reviewed and are negative. [facility] 04-26-2023 Note [facility] Consult Note Reason [...] and has not been seen by any gerontology aide since pacemaker placement in 2019 ECG 01/02/23 [...] not heard Extre (more content not included)... [facility] 08-12-2022 History and physi leandro note Note Date/Time August 04, 2022 3:52pm [facility] [address] [place] [address] Cardiothoracic Surgery H&P Signed Patient: Emigdio Apodaca MR#: [id number] : 1965 Acct:[id number] Age/Sex: 56 / F Adm Date: 2 Loc: [place] Room: Type: [facility] Attending Dr: Rodolfo Harley MD Copies to: [...] IgG IgM and IgA were all negative. Anti-KY-3 antibodies were 5.0. ?P ANCA was 1:80. [...] 2020 in the left chest from a gerontology aide at [facility] patient was unable to remember, right [...] patient had normal TSHlevel on 07/04/22 from [facility]. We will give 100 mg of IV Solu-Cortef on-call to the OR. We will utilize vancomycin and Levaquin given the questionable history of penicillin allergy with hives as a baby, although she states she recently had penicillin without issues. Documented By: Rodolfo Harley MD 08/04/22 1223 Signed By: <Electronically signed by MD Rodolfo Harley> 08/12/22 1345 [facility] Work Phone: 1(687) 895-377511-11-2022 Hospital Discharge instructionsAmbulatory Orders* Initiate Home Health Time Frame: 08/12/22, Location: Determined By Patient Additional Instructions no lifting 5-10 lbs. Continue Peridex mouthwash. May remove dressing tomorrow. Daily showers with Betasept wash. No driving.[facility] Work Phone: 1(443) 603-351511-11-2022 Progress note Author Nathaniel Meza [facility] August 12, 2022 11:59am Note Date/Time August 12, 2022 8:13am [facility] [address] [place] [address] Pulmonology Progress Note Signed Patient: Emigdio Apodaca MR#: [id number] : 1965 Acct:[id number] Age/Sex: 56 / F Adm Date: 2 Loc: Room: [address] [place] [address] Type: REG SDC Attending Dr: Rodolfo Harley [...] <Electronically signed by MD Nathaniel Meza> 08/12/22 2737 [facility] Work Phone: 1(890) 793-498711-10-2022 Progress note Author Nathaniel Meza [facility] August 11, 2022 10:07am Note Date/Time August 11, 2022 7:43am [facility] [address] [place] [address] Pulmonology Progress Note Signed Patient: Emigdio Apodaca MR#: [id number] : 1965 Acct:[id number] Age/Sex: 56 / F Adm Date: 2 Loc: Room: [address] [place] [address] Type: [facility] Attending Dr: Rodolfo Harley MD Copies to: [...] <Electronically signed by MD Nathaniel Meza> 08/11/[address] [place] [address] Ctr Work Phone: 1(577) 849-840411-09-2022 Consult note Author Nathaniel Meza [facility] August 10, 2022 5:46pm Note Date/Time August 10, 2022 5 :41pm [facility] [address] [place] [address] Pulmonology Consult Note Signed Patient: Emigdio Apodaca MR#: [id number] : 1965 Acct:[id number] Age/Sex: 56 / F Adm Date: 2 Loc: Room: 9H4402-5 Type: [facility] Attending Dr: Rodolfo Harley MD Copies to: [...] been followed by Dr. Nadege Gardner at [place] with complaints of dyspnea on exertion as [...] <Electronically signed by MD Nathaniel Meza> 08/10/22 1742 [facility] Work Phone: Evaluation noteNo assessment information available [facility] Work Phone: Evaluation note* Diagnosis Onset Date Resolution Status Bipolar 1 disorder acute Bronchiectasis acute Hypercholesteremia acute Hypothyroidism acute Interstitial lung disease ac [facility] Work Phone: Evaluation note* Diagnosis Onset Date Resolution Status Bipolar 1 disorder acute Hypercholesteremia acute Hypothyroidism acute Interstitial lung disease ac [place] Bipolar 1 disorder acute Bronchiectasis acute Hypercholesteremia acute Hypothyroidism acute Interstitial lung disease [facility] Work Phone: Summary Purpose Family History No Family History Records FoundNo Family History Records FoundNo Family History Records FoundNo Family History Records Found Advance Directives No Advanced Directives Records Found Advance Directive Response Recorded Date/ Time Advance Directives No August 05, 2022 8:18am Hospital Course Note MR#: [id number] [facility] Pt. Name: Emigdio Apodaca Admitted: 03/30/2020 [...] and content) DATE CREATED AUTHOR 04/23/2020 [facility] DATE CREATED AUTHOR AUTHOR'S ORGANIZ ATION 01/07/2023 [facility] DATE CREATED AUTHOR AUTHOR'S ORGANIZ ATION 10/25/2023 [facility] DATE CREATED AUTHOR AUTHOR'S ORGANIZ ATION 12/27/2023 [facility] Care Teams (unrecognized sec tion and content) Team Status: Inactive Member Role Status Chucho Harley MD Attending Provider Active Tony Turner MD Primary Care Provider Active Team Status: Active Member Role Status Chucho Turner MD Primary Care Provider Active Team Status: Inactive Member Role Status Chucho Turner MD Primary Care Provider Active Rodolfo Harley MD Attending Provider Active Allyssa Washburn APRN [facility] Other Provider Active Jonah Badillo MD Other Provider Active Nathaniel Meza MD Other Provider Active aDiana Whitehead MD Other Provider Active Edgardo Espinoza [...] BE BASED ON THE PRIMARY CLINICAL RECORDS. [facility]. provides no warranty or guarantee of the accuracy or completeness of information in this document.
[2023-12-27] MEDS: 0.9 % SODIUM CHLORIDE 1,000 ML 100 ML IV (23:38)
[2023-12-27] MEDS: CIPROFLOXACIN HCL 500 MG TABLET PO (23:39)
[2023-12-27] MEDS: METRONIDAZOLE 250 MG TABLET 500 MG PO (23:39)
[2023-12-27] MEDS: LAMOTRIGINE 25 MG TABLET 50 MG PO (23:47)
[2023-12-28 04:14] VITALS: BP 104/56; PULSE 84; RESP 16; TEMP 36.2; O2SAT 97
[2023-12-28 05:22] LABS: Hematocrit 41.6 % (36.0-48.0); Mean Corpuscular HGB Conc 31.3 g/dL (29.9-35.2); Mean Corpuscular Hemoglobin 27.9 pg (26.7-34.0); Mean Corpuscular Volume 89.3 fL (81.0-99.0); Mean Platelet Volume 9.7 fL (9.5-13.5); Platelet Count 177 10^3/uL (150-450); Red Blood Count 4.66 10^6/uL (4.20-5.40); Red Cell Distribution Width 13.3 % (11.0-15.0); White Blood Count 4.4 10^3/uL (4.0-11.0)
[2023-12-28 05:37] LABS: Alanine Aminotransferase 19 U/L (14-59); Albumin Globulin Ratio 0.9; Albumin Level 3.1 g/dL (3.4-5.0); Alkaline Phosphatase 84 U/L (46-116); Anion Gap 9.4; Aspartate Amino Transferase 21 U/L (15-37); BUN Creatinine Ratio 15.6; Bilirubin Total 0.4 mg/dL (0.2-1.0); Calcium 8.4 mg/dL (8.5-10.1); Carbon Dioxide 27.1 mmol/L (21.0-32.0); Chloride 108 mmol/L (98-107); Estimated GFR (African America >60 (>=60); Estimated GFR (Non-African Ame >60 (>=60); Globulin 3.3 g/dL; Glucose 99 mg/dL (74-106); Potassium 3.5 mmol/L (3.5-5.1); Sodium 141 mmol/L (136-145); Total Protein 6.4 g/dL (6.4-8.2)
[2023-12-28] MEDS: LEVOTHYROXINE SODIUM 125 MCG TABLET PO (05:49)
[2023-12-28] MEDS: METRONIDAZOLE 250 MG TABLET 500 MG PO (05:49)
--- NOTE | 2023-12-28 08:06 | P.HP_ITS ---
HPI H&P: HPI History of Present Illness Chief complaint: Vomiting N / V/ D Hx pancolitis Narrative: Patient readmitted with nausea vomiting. X-rays normal, lab results showed may be mild dehydration. When I saw patient up on the medical surgical floor she had no further emesis overnight. Will see how eating goes with breakfast and lunch today. Added Reglan Opioid HPI Opioid Management Most Recent Opioid Data: Last Pain Assessment 12/28/23 07:00 Last ED Pain Assessment 12/27/23 22:46 Last MAR Pain Assessment 12/26/23 09:17 Last ORT Total Score 7 12/27/23 23:04 Last ORT Risk Category Moderate Risk 12/27/23 23:04 PFSH PFSH Medical History (Updated 12/27/23 @ 21:51 by Violetta Jones MD) Pulmonary hypertension ?I27.20 - Pulmonary hypertension, unspecified (ICD-10) Cholecystitis ?K81.9 - Cholecystitis, unspecified (ICD-10) Depression ?F32.A - Depression, unspecified (ICD-10) On home O2 ?Z99.81 - Dependence on supplemental oxygen (ICD-10) Hyperthyroidism ?E05.90 - Thyrotoxicosis, unspecified without thyrotoxic crisis or storm (ICD-10) Scoliosis ?M41.9 - Scoliosis, unspecified (ICD-10) Emphysema lung ?J43.9 - Emphysema, unspecified (ICD-10) Nausea & vomiting ?R11.2 - Nausea with vomiting, unspecified (ICD-10) Pacemaker ?Z95.0 - Presence of cardiac pacemaker (ICD-10) COPD (chronic obstructive pulmonary disease) ?J44.9 - Chronic obstructive pulmonary disease, unspecified (ICD-10) Surgical History History of tonsillectomy ?Z90.89 - Acquired absence of other organs (ICD-10) H/O right wrist surgery ?Z98.890 - Other specified postprocedural states (ICD-10) H/O colectomy ?Z90.49 - Acquired absence of other specified parts of digestive tract (ICD- 10) Family History Mother Family history of COPD (chronic obstructive pulmonary disease) Grandmother Family history of cancer Sister Family history of diabetes mellitus Father Family history of myocardial infarction Social History (Updated 12/27/23 @ 23:45 by Meghana Lo) Within the past year, how often did you have a drink containing alcohol: never Within the past year, how often did you have six or more drinks on one occasion: never Score interpretation: A score less than 3 is consistent with normal alcohol consumption. 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 Known occupational exposures/hazards: No Highest level of school completed/degree received: 10th grade Do you want help with school or training: No Are you now , , , , never or living with a partner: In a typical week, how many times do you talk on the telephone with family, friends, or neighbors: 3 or more times per week How often do you get together with friends or relatives: 3 or more times per week How often do you attend christianity or pentecostalism services: 4 or more times per year Do you belong to any clubs or organizations such as christianity groups unions, [employer] or athletic groups, or school groups: yes Total score: 3 Score interpretation: A score of greater than or equal to 2 indicates the lowest level of social isolation. Little interest or pleasure in doing things: not at all Feeling down, depressed, or hopeless: not at all Feel stressed/tense/nervous/anxious/difficulty sleeping: to some extent Life stressors: unknown source of stress Due to disability, difficulty making decisions: No Do you think of yourself as: bisexual Gender Identity: female Meds Home Medications and Allergies Home Medications ?Medication ?Instructions ?Recorded ?Confirmed ?Type bupropion HCl 300 mg 24 hr tablet, 300 mg PO DAILY 09/25/23 12/27/23 History extended release cholecalciferol (vitamin D3) 50 50 mcg PO DAILY 09/25/23 12/27/23 History mcg (2,000 unit) capsule citalopram 20 mg tablet 20 mg PO DAILY 09/25/23 12/27/23 History lamotrigine 25 mg tablet 50 mg PO BEDTIME 09/25/23 12/27/23 History lansoprazole 30 mg capsule,delayed 30 mg PO DAILY 09/25/23 12/27/23 History release levothyroxine 125 mcg tablet 125 mcg PO DAILY 09/25/23 12/27/23 History simvastatin 20 mg tablet 20 mg PO DAILY 09/25/23 12/27/23 History docusate sodium 100 mg capsule 100 mg PO PRN 12/22/23 12/27/23 History (Col-Rite) loratadine 10 mg tablet (Allergy 10 mg PO DAILY 12/22/23 12/27/23 History Relief (loratadine)) ciprofloxacin HCl 500 mg tablet 500 mg PO Q12H #14 tabs 12/27/23 12/27/23 Rx (Cipro) metronidazole 500 mg tablet 500 mg PO Q8H 7 days #21 tabs 12/27/23 12/27/23 Rx ondansetron 4 mg disintegrating 4 mg PO Q6H PRN nausea and 12/27/23 12/27/23 Rx tablet vomiting #20 tabs sucralfate 1 gram tablet 1 g PO ACHS #120 tabs 12/27/23 12/27/23 Rx Allergies Allergy/AdvReac Type Severity Reaction Status Date / Time acetaminophen [From Percocet] Allergy Mild Vomiting Verified 12/22/23 17:31 codeine Allergy Mild Vomiting Verified 12/22/23 17:31 oxycodone [From Percocet] Allergy Mild Vomiting Verified 12/22/23 17:31 promethazine Allergy Mild Agitated Verified 12/22/23 17:31 Sulfa (Sulfonamide Allergy Mild Vomiting Verified 12/22/23 17:31 Antibiotics) hydromorphone [From Dilaudid] AdvReac Mild Rash Verified 12/22/23 17:31 prochlorperazine AdvReac Mild Verified 12/22/23 17:31 [From Compazine] Exam Constitutional Vital Signs, click to edit/add: Last Vital Signs Temp 97.2 F L 12/28/23 04:14 Pulse 84 12/28/23 04:14 Resp 16 12/28/23 04:14 BP 104/56 12/28/23 04:14 Pulse Ox 97 12/28/23 04:14 O2 Del Method Room Air 12/28/23 04:14 Documenting provider has reviewed patient's vital signs: yes Common normals: apparent distress (Mild painful distress) Chest Common normals: inspection of chest normal Respiratory Common normals: normal respiratory effort Auscultation: diminished lung sounds Cardio Common normals: regular rate and regular rhythm GI Common normals: Normal to inspection, nondistended, normoactive bowel sounds present, soft to palpation and no masses; tender (Tenderness has significantly improved) Extremity Common normals: normal to inspection and full ROM Results Labs Labs: Short CBC 12/27/23 12/28/23 Range/Units 20:10 04:57 WBC 7.9 4.4 (4.0-11.0) 10^3/uL Hgb 15.0 13.0 (12.0-16.0) g/dL Hct 46.7 41.6 (36.0-48.0) % Plt Count 227 177 (150-450) 10^3/uL BMP 12/27/23 12/28/23 20:10 04:57 Sodium 138 141 Potassium 4.2 3.5 Chloride 101 108 H Carbon Dioxide 29.5 27.1 BUN 15.0 14.0 Creatinine 1.06 H 0.90 Glucose 134 H 99 Calcium 9.4 8.4 L Liver Function 12/27/23 12/28/23 Range/Units 20:10 04:57 Total Bilirubin 0.4 0.4 (0.2-1.0) mg/dL AST 29 21 (15-37) U/L ALT 25 19 (14-59) U/L Alkaline Phosphatase 103 84 (46-116) U/L Albumin 3.9 3.1 L (3.4-5.0) g/dL Assessment and Plan Assessment and Plan (1) Dehydration, mild: Plan Mild dehydration. Recurrent nausea vomiting at home-so far lab results and exam are all normal. Add Reglan, possible discharge to home later today
--- NOTE | 2023-12-28 08:24 | PM.DS1 ---
DS: Providers Provider Date of admission: 12/27/23 22:53 Primary care physician: Paulo Turner MD DS: Diagnosis Discharge Diagnosis (1) Dehydration, mild: (2) Dizziness: (3) Esophagitis: (4) Pancolitis: (5) Nausea & vomiting: DS: Summary Hospital Course Hospital Course: Patient was readmitted with frequent emesis at home. She had had a day and a half of no emesis prior to coming into the hospital this time. Overnight no further emesis. She has tolerated breakfast and lunch so she will be discharged home. She can see me in the office tomorrow for close follow-up. Continue with workup for her colitis. Medications see list. Time Spent with Patient Time attestation: Total time spent providing and/or coordinating discharge services: Exam Constitutional Vital Signs, click to edit/add: Last Vital Signs Temp 97.2 F L 12/28/23 04:14 Pulse 84 12/28/23 04:14 Resp 16 12/28/23 04:14 BP 104/56 12/28/23 04:14 Pulse Ox 97 12/28/23 04:14 O2 Del Method Room Air 12/28/23 04:14 Documenting provider has reviewed patient's vital signs: yes Common normals: apparent distress (Mild painful distress) Chest Common normals: inspection of chest normal Respiratory Common normals: normal respiratory effort Auscultation: diminished lung sounds Cardio Common normals: regular rate and regular rhythm GI Common normals: Normal to inspection, nondistended, normoactive bowel sounds present, soft to palpation and no masses; tender (Tenderness has significantly improved) Extremity Common normals: normal to inspection and full ROM DS: Data Data Completed and Pending Labs on day of discharge: Labs from last 24 hours 12/28/23 12/27/23 04:57 20:10 WBC 4.4 7.9 RBC 4.66 5.30 Hgb 13.0 15.0 Hct 41.6 46.7 MCV 89.3 88.1 MCH 27.9 28.3 MCHC 31.3 32.1 RDW 13.3 13.2 Plt Count 177 227 MPV 9.7 9.5 Neut % (Auto) 81.0 H Lymph % (Auto) 12.5 L Maury % (Auto) 3.7 Eos % (Auto) 2.4 Baso % (Auto) 0.3 Neut # (Auto) 6.4 Lymph # (Auto) 1.0 L Maury # (Auto) 0.3 Eos # (Auto) 0.2 Baso # (Auto) 0.0 Abs Immat Gran (auto) 0.01 Seg Neuts % (Manual) Cancelled Band Neutrophils % Cancelled Lymphocytes % (Manual) Cancelled Atypical Lymphs % (Man) Cancelled Monocytes % (Manual) Cancelled Eosinophils % (Manual) Cancelled Basophils % (Manual) Cancelled Metamyelocytes % Cancelled Myelocytes % Cancelled Promyelocytes % Cancelled Blast Cells % (Manual) Cancelled Imm/Tot Granulo (auto) 0.1 Neutrophils # (Manual) Cancelled Band Neutrophils # Cancelled Lymphocytes # (Manual) Cancelled Abs Atypical Lymphs Man Cancelled Monocytes # (Manual) Cancelled Eosinophils # (Manual) Cancelled Basophils # (Manual) Cancelled Metamyelocytes # Cancelled Myelocytes # Cancelled Promyelocytes # Cancelled Blast Cells # Cancelled Nucleated RBCs Cancelled Differential Comment Cancelled Hypersegmented Neuts Cancelled Smudge Cells Cancelled Toxic Granulation Cancelled Toxic Vacuolation Cancelled Dohle Bodies Cancelled Marguerite Rods Cancelled WBC Morphology Comment Cancelled Plt Clumps, EDTA Cancelled Giant Platelets Cancelled Plt Morphology Comment Cancelled RBC Morphology Cancelled Polychromasia Cancelled Hypochromasia Cancelled Poikilocytosis Cancelled Basophilic Stippling Cancelled Anisocytosis Cancelled Microcytosis Cancelled Macrocytosis Cancelled Spherocytes Cancelled Pappenheimer Bodies Cancelled Sickle Cells Cancelled Target Cells Cancelled Tear Drop Cells Cancelled Ovalocytes Cancelled Stomatocytes Cancelled Helmet Cells Cancelled Bell-Fairplay Bodies Cancelled Montgomery Rings Cancelled Nahid Cells Cancelled Acanthocytes (Spur) Cancelled Rouleaux Cancelled Schistocytes Cancelled Sodium 141 138 Potassium 3.5 4.2 Chloride 108 H 101 Carbon Dioxide 27.1 29.5 Anion Gap 9.4 11.7 BUN 14.0 15.0 Creatinine 0.90 1.06 H Est GFR ( Amer) >60 >60 Est GFR (Non-Af Amer) >60 53 L BUN/Creatinine Ratio 15.6 14.2 Glucose 99 134 H Calcium 8.4 L 9.4 Total Bilirubin 0.4 0.4 AST 21 29 ALT 19 25 Alkaline Phosphatase 84 103 Total Protein 6.4 7.8 Albumin 3.1 L 3.9 Globulin 3.3 3.9 Albumin/Globulin Ratio 0.9 1.0 Discharge Plan Discharge Disposition: Home, Self-Care Condition: Good Discharge Medications: New metoclopramide HCl [Reglan] 10 mg tablet 10 mg PO ACHS 7 Days Qty: 28 0RF Continued bupropion HCl 300 mg tablet extended release 24 hr 300 mg PO DAILY cholecalciferol (vitamin D3) 50 mcg (2,000 unit) capsule 50 mcg PO DAILY citalopram 20 mg tablet 20 mg PO DAILY lamotrigine 25 mg tablet 50 mg PO BEDTIME lansoprazole 30 mg capsule,delayed release(DR/EC) 30 mg PO DAILY levothyroxine 125 mcg tablet 125 mcg PO DAILY simvastatin 20 mg tablet 20 mg PO DAILY loratadine [Allergy Relief (loratadine)] 10 mg tablet 10 mg PO DAILY docusate sodium [Col-Rite] 100 mg capsule 100 mg PO PRN sucralfate 1 gram Tablet 1 g PO ACHS Qty: 120 11RF Hold Instructions: per nursing note: patient DC'd Patient Comments: pt. was dc'd with these scripts has not started ciprofloxacin HCl [Cipro] 500 mg tablet 500 mg PO Q12H Qty: 14 0RF Hold Instructions: per nursing note: patient DC'd Patient Comments: pt. was dc'd with these scripts has not started metronidazole 500 mg tablet 500 mg PO Q8H 7 Days Qty: 21 0RF Hold Instructions: per nursing note: patient DC'd Patient Comments: pt. was dc'd with these scripts has not started ondansetron 4 mg tablet,disintegrating 4 mg PO Q6H PRN (Reason: nausea and vomiting) Qty: 20 3RF Hold Instructions: per nursing note: patient DC'd Patient Comments: pt. was dc'd with these scripts has not started Print Language: Turkish Forms: Portal Instructions
[2023-12-28] MEDS: CIPROFLOXACIN HCL 500 MG TABLET PO (08:30)
[2023-12-28] MEDS: PANTOPRAZOLE SODIUM 40 MG VIAL IV (08:30)
[2023-12-28] MEDS: SUCRALFATE 1 GM TABLET PO ×2 (08:30→11:37)
--- NOTE | 2023-12-28 10:36 | SWNOTE1 ---
SW met with pt to discuss dc needs. Pt lives at home with her 2 sons. They both work 8-2:30. She voices she returned to ED because she had nausea/vomiting/diarrhea. Pt voiced once she is discharged from her, she is going to drive to [place]. She stated something is not right. She stated at times she does get dizzy and she has to sit there for awhile until it goes away. SW and pt spoke about the possibility of pt being set up with home health. At least a nurse to monitor at home. Pt is not sure she wants this. She voiced she has dogs and HH would have to come after 3:00. Pt is going to think about it and let SW know.
[2023-12-28] MEDS: METOCLOPRAMIDE HCL 10 MG/10 ML SOLUTION REGLAN PO (11:37)
--- NOTE | 2023-12-28 13:09 | SWNOTE1 ---
SW spoke to pt again about home health. She voiced she spoke to her mother and her mother wants her to go stay with her for awhile. SW asked if her mother was in good health and she stated better health than herself. At this time pt voices she does not want any HH, not even a nurse at this time. She is going to see how she does the next few days at her mother's home. If she does not feel better she voiced she is going to [place]. REILLY advised pt that her PCP can set her up with home health if she does decide she wants it. Pt voiced understanding.
--- NOTE | 2024-01-03 16:12 | CM.DCFOLLOWU ---
3rd attempt. No answer
== END 2023-12-28 13:55 | disposition home or self-care (01) ==
LOC: ER 20:13 → MS 22:56
PROVIDERS: Nurse Practitioner Acute Care; Admitting Provider Family Medicine; Emergency Provider Emergency Medicine; PCP Family Medicine; Visit Provider Family Medicine
DX: E86.0 Dehydration (principal); R42 Dizziness and giddiness; K20.90 Esophagitis, unspecified without bleeding; K52.9 Noninfective gastroenteritis and colitis, unspecified; R11.2 Nausea with vomiting, unspecified; I27.20 Pulmonary hypertension, unspecified; E05.90 Thyrotoxicosis, unspecified without thyrotoxic crisis or storm; J43.9 Emphysema, unspecified; M41.9 Scoliosis, unspecified; F32.A Depression, unspecified; Z95.0 Presence of cardiac pacemaker; Z99.81 Dependence on supplemental oxygen; Z90.89 Acquired absence of other organs; Z98.890 Other specified postprocedural states; Z90.49 Acquired absence of other specified parts of digestive tract; Z79.899 Other long term (current) drug therapy; Z79.890 Hormone replacement therapy
CPT/HCPCS: 36415; 74022; 80053; 85007; 85025; 85027; 87493; 87507; 93005; 96361; 96374; 96375; 99285; G0378

== ENCOUNTER 2024-01-24 09:49 | Outpatient (OUT) | payer OTHER, SELFPAY ==
--- NOTE | 2024-01-24 09:51 | CT_ITS ---
[address] [address] Patient Name: EMIGDIO ELI MRN: [id number] date: 1965 Sex: F Assigned Patient Location: CT Current Patient Location: CT Accession/Order Number: [id number] Exam Date: 01/24/2024 10:05 Report Date: 01/24/2024 16:23 At the request of: NADEGE GARDNER Procedure: CT chest high res EXAMINATION: CT chest high res HISTORY: [facility] Lung J67.2, Bronchiectasis J47.9 COMPARISON: CT chest 01/03/2023 TECHNIQUE: Axial images were obtained at 10 mm intervals during inspiration and expiration in the supine and prone positions. No IV contrast given. Dose reduction techniques were achieved by using automated exposure control and/or adjustment of mA and/or kV according to patient size and/or use of iterative reconstruction technique. FINDINGS: LUNGS: Mild patchy ground glass opacities scattered throughout the lungs. Mild bronchiectasis. No acute infiltrates or mass. Mild emphysematous changes and scattered calcifications suggestive of granulomatous disease. PLEURA: No mass, effusion, or pneumothorax. LAMAR: Calcified right hilar lymph nodes compatible with chronic granulomatous disease. MEDIASTINUM: No mass or adenopathy. CHEST WALL: No mass or axillary adenopathy LIMITED ABDOMEN: No suspicious findings. Limited images of the upper abdomen. OTHER: Negative. CT/CT chest high res IMPRESSION: 1. Scattered groundglass opacities and mild bronchiectasis; possibly mild air trapping. 2. Mild emphysematous changes. No acute infiltrates. 3. Chronic granulomatous disease. Electronically authenticated by: DENIZ KRAFT Date: 01/24/2024 16:23
== END 2024-01-24 09:50 | disposition home or self-care (01) ==
LOC: CT 09:49
PROVIDERS: PCP Family Medicine; Visit Provider Internal Medicine
DX: J67.2 Bird fancier's lung (principal); J47.9 Bronchiectasis, uncomplicated
CPT/HCPCS: 71250

== ENCOUNTER 2024-02-20 10:17 | Emergency (ER) | payer OTHER, SELFPAY ==
[2024-02-20] VITALS (17 sets, daily range): BP systolic 135; BP diastolic 81; PULSE 71–76; TEMP 36.5; O2SAT 90–99; BMI 19.3
--- OUTSIDE RECORDS SUMMARY | 2024-02-20 10:40 | XMS_ITS | CCD ---
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 Diagnosis Date Abnormal ECG COPD (chronic obstructive pulmonary disease) (CMS/HCC) Hyperlipidemia Past Surgical History: Procedure Laterality Date CHOLECYSTECTOMY INSERT / REPLACE / REMOVE PACEMAKER Family History Problem Relation Name Age of Onset Alzheimer's disease Father Social History Tobacco Use Smoking status: Never Smokeless tobacco: Never Substance Use Topics Alcohol use: Not Currently Drug use: Not on file Review of Systems Review of Systems Physical Exam ED Triage Vitals Temp Heart Rate Resp BP 01/01/24185501/01/24185201/01/24185201/01/241852 36.9 ???C (98.4 ???F) 80 16 147/78 SpO2 Temp Source Heart Rate Source Patient Position 01/01/24185201/01/24185501/01/24185201/01/241852 91 % Oral Monitor Sitting BP Location FiO2 (%) 01/01/241852 -- Left arm Physical Exam Procedures Labs Reviewed URINALYSIS WITH REFLEX CULTURE - Abnormal Result Value Color, Urine Straw (*) Clarity, Urine Clear pH, Urine 6.0 Leukocytes, Urine Negative Nitrite, Urine Negative Protein, Urine Negative Glucose, Urine Negative Bilirubin, Urine Negative Specific [place], Urine 1.041 (*) Ketones, Urine Trace (*) Blood, Urine Negative Narrative: Microscopics not performed on urines with negative chemical reactions unless requested on original order. TSH3 REFLEX TO FT4 - Abnormal TSH 0.02 (*) CBC WITH AUTO DIFFERENTIAL - Abnormal Auto WBC 3.46 (*) RBC 4.93 Hemoglobin 14.3 Hematocrit 42.2 MCV 85.6 MCH 29.0 MCHC 33.9 RDW 13.6 Neutrophils Relative 56.0 Lymphocytes Relative 32.1 Monocytes Relative 8.1 Eosinophils Relative 2.6 Basophils Relative 0.6 Neutrophils Absolute 1.94 Lymphocytes Absolute 1.11 (*) Monocytes Absolute 0.28 Eosinophils Absolute 0.09 Basophils Absolute 0.02 Platelets 222 nRBC % 0.0 Immature Granulocytes Relative 0.6 Immature Granulocytes Absolute 0.02 TSH3 REFLEX TO FT4 - Abnormal TSH 0.01 (*) BASIC METABOLIC PANEL - Abnormal Sodium 141 Potassium 3.6 Chloride 109 (*) CO2 28 BUN 7 Creatinine 0.82 Glucose 96 Calcium 8.6 Anion Gap 8 eGFR 82.3 BUN/Creatinine Ratio 8.5 CBC - Abnormal Auto WBC 3.38 (*) RBC 4.79 Hemoglobin 13.9 Hematocrit 44.0 MCV 91.9 MCH 29.0 MCHC 31.6 (*) RDW 13.8 Platelets 201 LACTIC ACID WITH 4 HOUR REFLEX - Normal Lactate 0.8 LIPASE - Normal Lipase 47 TROPONIN I - Normal Troponin I 0.00 TOXICOLOGY PANEL URINE - Normal Barbiturate Screen, Ur Negative Benzodiazepines Screen, Urine Negative Propoxyphene, Ur Negative Methadone Screen, Urine Negative TCA, Urine Negative PCP Scrn, Ur Negative Opiate Scrn, Ur Negative Cocaine Screen, Urine Negative Amphetamine+Methamphetamine Screen, Ur Negative Cannabinoid Screen, Urine Negative MAGNESIUM - Normal Magnesium 2.1 T4, FREE - Normal Free T4 1.44 T4, FREE - Normal Free T4 1.66 FECAL LEUKOCYTES ENTERIC BACTERIAL DNA PANEL ENTERIC BACTERIA, LIMITED PARASITE DNA PANEL CBC AND DIFFERENTIAL Narrative: The following orders were created for panel order CBC and differential. Procedure Abnormality Status --------- ------ CBC auto differential[[id number]] Abnormal Final result Please view results for these tests on the individual orders. COMPREHENSIVE METABOLIC PANEL Sodium 140 Potassium 3.8 Chloride 106 CO2 24 Anion Gap 14 BUN 10 Creatinine 0.82 BUN/Creatinine Ratio 12.2 Glucose 86 Calcium 9.6 AST 20 ALT (SGPT) 10 Alkaline Phosphatase 81 Total Protein 6.7 Albumin 4.1 Total Bilirubin 0.5 eGFR 82.3 ETHANOL Ethanol Calculated % Ethanol Lvl <10 LACTOFERRIN, FECAL PANCREATIC ELASTASE, FECAL CT head wo IV contrast Final Result Unremarkable unenhanced CT of the brain. Electronically signed: Shari Mahoney. CTA Head W IV Contrast Final Result Unremarkable intracranial CT angiogram. Electronically signed: Shari Mahoney. CTA Neck W IV Contrast Final Result 1. Patent cervical carotid arteries. Electronically signed: Shari Mahoney. CT abdomen pelvis w IV contrast Final Result 1. No acute finding in the abdomen nor pelvis. 2. Dilated common hepatic duct and common bile duct likely due to reservoir effect postcholecystectomy. Recommend confirmation by liver function test evaluation. Electronically signed: Shari Mahoney. XR chest 1 view Final Result No evidence for acute cardiopulmonary disease. Electronically signed: Shari Mahoney. ED Course & MDM ED Course as of 01/02/24 2309 MonJan 01, 20244 Per cardiology note 10/24/23: Stress test 09/2023 was negative for ischemia TTE 09/06/23 normal LVEF 60%, mildly elevated RVSP, mild TR [JS] 2300 Pt was signed out to ED attending (Dr Bautista) at shift change. All labs (except CBC) and imaging (except CXR) pending. Pt will likely need admi (more content not included)... Normal [facility] FOLATEon 01-03-2024 FOLATE (NG/ML) IN SER/PLAS 34.0 ng/mL Normal 6.6-1000 [facility] Comment on above: Performed By: #### L [id number] ####[facility] ([facility])[address] [place] [address] MAGNESIUMon 01-03-2024 Magnesium [Mass/Vol] 1.9 mg/dL Normal 1.9-2.7 [facility] Comment on above: Performed By: #### L [id number] ####[facility] (BEAKER)[address] [place] [address] VITAMIN B12on 01-03-2024 Cobalamin (Vitamin B12) [Mass/Vol] 148 pg/mL Low 180-914 [facility] Comment on above: Result Comment: REFE RENCE RANGES: 180-914 pg/mL Normal 145-179 pg/mL Indeterminate <145 pg/mL Deficient Performed By: #### L [id number] ####[facility] (BEAKER)[address] [place] [address] BASIC METABOLIC PANELon Anion gap [Moles/Vol] 8 mmol/L Normal 7-20 [facility] Comment on above: Performed By: #### L [id number] ####[facility] [place] [address] Calcium [Mass/Vol] 8.6 mg/dL Normal 8.6-10.3 [facility] Comment on above: Performed By: #### L [id number] ####[facility] (BEAKER)[address] [place] [address] Chloride [Moles/Vol] 109 mmol/L High 98-107 [facility] Comment on above: Performed By: #### L [id number] ####[facility] (BEAKER)[address] [place] [address] CO2 [Moles/Vol] 28 mmol/L Normal 21-31 [facility] Comment on above: Performed By: #### L [id number] ####[facility] ([facility] [place] [address] Creatinine [Mass/Vol] 0.82 mg/dL Normal 0.60-1.20 [facility] Comment on above: Performed By: #### L [id number] ####[facility] (BEAKER)[address] [place] [address] GLOMERULAR FILTRATION RATE ML/MIN/1.73 SQ M.PREDICTED 82.3 mL/min/1.73m*2 Normal >60.0 [facility] Comment on above: Result Comment: [facility]???s estimated glomerular filtration rate (eGFR) will no longer include consideration of race in its calculation. The National Kidney Foundation???s eGFR Task Force developed new recommendations for the estimation of the glomerular filtration rate in the [place] They recommend immediate implementation of the new equation refit without the race variable in all laboratories because the calculation does not include race. In addition to not including race in the calculation and reporting, it included diversity in its development, and has acceptable performance characteristics and potential consequences that do not disproportionately affect any one group of individuals. Performed By: #### L [id number] ####[facility] ([facility] [place] [address] Glucose [Mass/Vol] 96 mg/dL Normal 70-100 [facility] Comment on above: Performed By: #### L [id number] ####[facility] (BEAKER)[address] [place] [address] Potassium [Moles/Vol] 3.6 mmol/L Normal 3.5-5.1 [facility] Comment on above: Performed By: #### L [id number] ####[facility] ([facility] [place] [address] Sodium [Moles/Vol] 141 mmol/L Normal 136-145 [facility] Comment on above: Performed By: #### L [id number] ####[facility] ([facility] [place] [address] Urea nitrogen [Mass/Vol] 7 mg/dL Normal 7-25 [facility] Comment on above: Performed By: #### L [id number] ####[facility] ([facility])[address] [place] [address] UREA NITROGEN/CREATININE (MASS RATIO) IN SER/PLAS 8.5 Normal [facility] Comment on above: Performed By: #### L [id number] ####[facility] ([facility])[address] [place] [address] CBCon 01-02-2024 Erythrocyte distribution width (RBC) [Ratio] 13.8 % Normal 11.5-15.0 [facility] Comment on above: Performed By: #### L [id number] ####[facility] ([facility])[address] [place] [address] ERYTHROCYTE MEAN CORPUSCULAR HEMOGLOBIN CONCENTRATION (G/DL) BY AUTOMATED 31.6 g/dL Low 32.0-35.0 [facility] Comment on above: Performed By: #### L [id number] ####[facility] [place] [address] Hematocrit (Bld) [Volume fraction] 44.0 % Normal 36.0-48.0 [facility] Comment on above: Performed By: #### L [id number] ####[facility] [place] [address] Hemoglobin (Bld) [Mass/Vol] 13.9 g/dL Normal 12.0-15.0 [facility] Comment on above: Performed By: #### L [id number] ####[facility] (BEAKER)[address] [place] [address] MCH (RBC) [Entitic mass] 29.0 pg Normal 27.0-33.0 [facility] Comment on above: Performed By: #### L [id number] ####[facility] [place] [address] MCV (RBC) [Entitic vol] 91.9 fL Normal 82.0-98.0 [facility] Comment on above: Performed By: #### L [id number] ####[facility] ([facility])[address] [place] [address] PLATELETS (10*3/UL) IN BLOOD AUTOMATED COUNT 201 10*3/uL Normal 150-400 [facility] Comment on above: Performed By: #### L [id number] ####[facility] ([facility])[address] [place] [address] RBC (Bld) [#/Vol] 4.79 10*6/uL Normal 3.80-5.00 [facility] Comment on above: Performed By: #### L [id number] ####[facility] ([facility])[address] [place] [address] WBC (Bld) [#/Vol] 3.38 10*3/uL Low 4.00-10.60 [facility] Comment on above: Performed By: #### L [id number] ####[facility] ([facility])[address] [place] [address] CBC WITH AUTO DIFFERENTIALon 01-02-2024 Basophils (Bld) [#/Vol] 0.02 10*3/uL Normal 0.00-0.20 [facility] Comment on above: Performed By: #### L [id number] ####[facility] ([facility] [place] [address] Basophils/100 WBC (Bld) 0.6 % Normal 0.0-1.0 [facility] Comment on above: Performed By: #### L [id number] ####[facility] ([facility] [place] [address] Eosinophils (Bld) [#/Vol] 0.09 10*3/uL Normal 0.00-0.50 [facility] Comment on above: Performed By: #### L [id number] ####[facility] (BEAKER)[address] [place] [address] Eosinophils/100 WBC (Bld) 2.6 % Normal 0.0-6.0 [facility] Comment on above: Performed By: #### L [id number] ####[facility] (BEAKER)[address] [place] [address] Erythrocyte distribution width (RBC) [Ratio] 13.6 % Normal 11.5-15.0 [facility] Comment on above: Performed By: #### L [id number] ####[facility] ([facility] [place] [address] ERYTHROCYTE MEAN CORPUSCULAR HEMOGLOBIN CONCENTRATION (G/DL) BY AUTOMATED 33.9 g/dL Normal 32.0-35.0 [facility] Comment on above: Performed By: #### L [id number] ####[facility] [place] [address] Hematocrit (Bld) [Volume fraction] 42.2 % Normal 36.0-48.0 [facility] Comment on above: Performed By: #### L [id number] ####[facility] (BEAKER)[address] [place] [address] Hemoglobin (Bld) [Mass/Vol] 14.3 g/dL Normal 12.0-15.0 [facility] Comment on above: Performed By: #### L [id number] ####[facility] (BEAKER)[address] [place] [address] Immature granulocytes (Bld) [#/Vol] 0.02 10*3/uL Normal 0.00-0.20 [facility] Comment on above: Performed By: #### L [id number] ####[facility] (BEAKER)[address] [place] [address] Immature granulocytes/100 WBC (Bld) 0.6 % Normal 0.0-1.0 [facility] Comment on above: Performed By: #### L [id number] ####[facility] (BEAKER)[address] [place] [address] Lymphocytes (Bld) [#/Vol] 1.11 10*3/uL Low 1.20-4.00 [facility] Comment on above: Performed By: #### L [id number] ####[facility] (BEAKER)[address] [place] [address] Lymphocytes/100 WBC (Bld) 32.1 % Normal 20.0-45.0 [facility] Comment on above: Performed By: #### L [id number] ####[facility] (BEAKER)[address] [place] [address] MCH (RBC) [Entitic mass] 29.0 pg Normal 27.0-33.0 [facility] Comment on above: Performed By: #### L [id number] ####[facility] (BEAKER)[address] [place] [address] MCV (RBC) [Entitic vol] 85.6 fL Normal 82.0-98.0 [facility] Comment on above: Performed By: #### L [id number] ####[facility] (BEAKER)[address] [place] [address] Monocytes (Bld) [#/Vol] 0.28 10*3/uL Normal 0.10-1.00 [facility] Comment on above: Performed By: #### L [id number] ####[facility] (BEAKER)[address] [place] [address] Monocytes/100 WBC (Bld) 8.1 % Normal 5.0-12.0 [facility] Comment on above: Performed By: #### L [id number] ####[facility] (BEAKER)[address] [place] [address] Neutrophils (Bld) [#/Vol] 1.94 10*3/uL Normal 1.60-7.60 [facility] Comment on above: Performed By: #### L [id number] ####[facility] (BEAKER)[address] [place] [address] Neutrophils/100 WBC (Bld) 56.0 % Normal 40.0-72.0 [facility] Comment on above: Performed By: #### L [id number] ####[facility] ([facility])[address] [address] NRBC (PER 100 WBCS) BY AUTOMATED COUNT 0.0 % Normal 0 [facility] Comment on above: Performed By: #### L [id number] ####[facility] ([facility])[address] [address] PLATELETS (10*3/UL) IN BLOOD AUTOMATED COUNT 222 10*3/uL Normal 150-400 [facility] Comment on above: Performed By: #### L [id number] ####[facility] ([facility])[address] [place] [address] RBC (Bld) [#/Vol] 4.93 10*6/uL Normal 3.80-5.00 [facility] Comment on above: Performed By: #### L [id number] ####[facility] ([facility])[address] [place] [address] WBC (Bld) [#/Vol] 3.46 10*3/uL Low 4.00-10.60 [facility] Comment on above: Performed By: #### L [id number] ####[facility] ([facility])[address] [place] [address] COMPREHENSIVE METABOLIC PANE Balwinder 01-02-2024 Albumin [Mass/Vol] 4.1 g/dL Normal 3.5-5.7 [facility] Comment on above: Performed By: #### L [id number] ####[facility] ([facility])[address] [place] [address] ALP [Catalytic activity/Vol] 81 U/L Normal 34-104 [facility] Comment on above: Performed By: #### L [id number] ####[facility] ([facility])[address] [place] [address] ALT [Catalytic activity/Vol] 10 U/L Normal 7-52 [facility] Comment on above: Performed By: #### L [id number] ####[facility] (BEAKER)[address] [place] [address] Anion gap [Moles/Vol] 14 mmol/L Normal 7-20 [facility] Comment on above: Performed By: #### L [id number] ####[facility] [place] [address] AST [Catalytic activity/Vol] 20 U/L Normal 13-39 [facility] Comment on above: Performed By: #### L [id number] ####[facility] [place] [address] Bilirubin [Mass/Vol] 0.5 mg/dL Normal 0.3-1.0 [facility] Comment on above: Performed By: #### L [id number] ####[facility] ([facility])[address] [place] [address] Calcium [Mass/Vol] 9.6 mg/dL Normal 8.6-10.3 [facility] Comment on above: Performed By: #### L [id number] ####[facility] [place] [address] Chloride [Moles/Vol] 106 mmol/L Normal 98-107 [facility] Comment on above: Performed By: #### L [id number] ####[facility] (BEAKER)[address] [place] [address] CO2 [Moles/Vol] 24 mmol/L Normal 21-31 [facility] Comment on above: Performed By: #### L [id number] ####[facility] (BEAKER)[address] [place] [address] Creatinine [Mass/Vol] 0.82 mg/dL Normal 0.60-1.20 [facility] Comment on above: Performed By: #### L [id number] ####[facility] (BEAKER)[address] [place] [address] GLOMERULAR FILTRATION RATE ML/MIN/1.73 SQ M.PREDICTED 82.3 mL/min/1.73m*2 Normal >60.0 [facility] Comment on above: Result Comment: [facility]???s estimated glomerular filtration rate (eGFR) will no longer include consideration of race in its calculation. The National Kidney Foundation???s eGFR Task Force developed new recommendations for the estimation of the glomerular filtration rate in the [place] They recommend immediate implementation of the new equation refit without the race variable in all laboratories because the calculation does not include race. In addition to not including race in the calculation and reporting, it included diversity in its development, and has acceptable performance characteristics and potential consequences that do not disproportionately affect any one group of individuals. Performed By: #### L [id number] ####[facility] (BEAKER)[address] [place] [address] Glucose [Mass/Vol] 86 mg/dL Normal 70-100 [facility] Comment on above: Performed By: #### L [id number] ####[facility] (BEAKER)[address] [place] [address] Potassium [Moles/Vol] 3.8 mmol/L Normal 3.5-5.1 [facility] Comment on above: Performed By: #### L [id number] ####[facility] (BEAKER)[address] [place] [address] Protein [Mass/Vol] 6.7 g/dL Normal 6.0-8.3 [facility] Comment on above: Performed By: #### L [id number] ####[facility] (BEAKER)[address] [place] [address] Sodium [Moles/Vol] 140 mmol/L Normal 136-145 [facility] Comment on above: Performed By: #### L [id number] ####[facility] (BEAKER)[address] [place] [address] Urea nitrogen [Mass/Vol] 10 mg/dL Normal 7-25 [facility] Comment on above: Performed By: #### L [id number] ####[facility] (BEAKER)[address] [place] [address] UREA NITROGEN/CREATININE (MASS RATIO) IN SER/PLAS 12.2 Normal [facility] Comment on above: Performed By: #### L [id number] ####[facility] ([facility])[address] [place] [address] CONSULTon 01-02-2024 CONSULT Reason For Consult consatnt dizziness Referring Provider: Pam Way MD History Of Present Illness Emigdio Eli is a 58 y.o. female who presented to [facility] emergency department with complaints dizziness for whom Neurology was consulted. Pt was seen and evaluated this morning in ED. Patient reports that she developed new onset of daily intermittent headaches that started 5 weeks. She would take OTC Tylenol which helped alleviate the pain. The following week she started experiencing daily episodes of intermittent dizziness, described as a sensation of the room spinning. She denies any association with positional changing making her dizziness worse or better. She also endorses intermittent nausea and vomiting, currently denies nausea and vomiting. She currently denies headache, double or blurry vision, acute focal weakness, numbness or tingling, or lightheadedness. According to chart review, patient was seen by Dr. Tony Amaya on 12/29/2023 in [place] due to this persistent dizziness. She was started on Meclizine 25 mg and outpatient MRI brain w/wo contrast was ordered. Patient states she didn't want to wait weeks to get the MRI done as outpatient and was told by her doctor to come to the ER and they be able to complete the MRI right away. She has follow up with Dr. Amaya scheduled on 01/04/2024. Past Medical History She has a past medical history of Abnormal ECG, COPD (chronic obstructive pulmonary disease) (CMS/HCC), and Hyperlipidemia. Surgical History She has a past surgical history that includes Cholecystectomy and Insert / replace / remove pacemaker. Family History Family History Problem Relation Name Age of Onset Alzheimer's disease Father Social History She reports that she has never smoked. She has never used smokeless tobacco. She reports that she does not currently use alcohol. No history on file for drug use. Allergies Compazine [prochlorperazine] and Sulfa (sulfonamide antibiotics) Medications (Not in a hospital admission) Active Hospital Medications Medication Dose Route Frequency Last Admin acetaminophen 650 mg oral q6h PRN albuterol 2 puff inhalation q6h PRN buPROPion XL 300 mg oral Daily 300 mg at 01/02/24 0954 cetirizine 10 mg oral Daily 10 mg at 01/02/24 0953 D5 % and 0.9 % sodium chloride 75 mL/hr intravenous Continuous 75 mL/hr at 01/02/24 0150 heparin (porcine) 5,000 Units subcutaneous q12h KISHAN 5,000 Units at 01/02/24 1038 lamoTRIgine 50 mg oral Daily levothyroxine 125 mcg oral Daily before breakfast 125 mcg at 01/02/24 0806 ondansetron ODT 4 mg oral q8h PRN Or ondansetron 4 mg intravenous q6h PRN pantoprazole 40 mg oral Daily sennosides-docusate sodium 1 tablet oral BID PRN simvastatin 20 mg oral Nightly Review of Systems Eyes: Negative for photophobia and visual disturbance. Respiratory: Negative. Cardiovascular: Negative. Gastrointestinal: Positive for nausea (was experiencing nausea but not currently). Negative for diarrhea and vomiting. Musculoskeletal: Negative. Skin: Negative. Neurological: Positive for dizziness. Negative for tremors, seizures, syncope, facial asymmetry, speech difficulty, weakness, light-headedness, numbness and headaches. Psychiatric/Behavioral: Negative. Last Recorded Vitals Patient Vitals for the past 24 hrs: BP Temp Temp src Pulse Resp SpO2 Height Weight 01/02/24 1231 109/74 -- -- 72 -- 92 % -- -- 01/02/24 1032 119/82 -- -- 76 16 92 % -- -- 01/02/24 0900 106/68 -- -- 71 16 90 % -- -- 01/02/24 0729 112/76 -- -- 72 17 93 % -- -- 01/02/24 0631 102/69 -- -- 71 -- 93 % -- -- 01/02/24 0500 -- -- -- 71 -- 94 % -- -- 01/02/24 0400 95/71 -- -- 71 16 91 % -- -- 01/02/24 0330 102/70 -- -- 71 -- 90 % -- -- 01/02/24 0245 -- -- -- 71 -- 93 % -- -- 01/02/24 0131 117/78 -- -- 72 -- 94 % -- -- 01/02/24 0101 117/82 -- -- 79 -- 90 % -- -- 01/02/24 0029 127/78 -- -- 77 -- 99 % -- -- 01/01/24 235 113/76 -- -- 76 -- 99 % -- -- 01/01/24 235 -- -- -- 85 -- 97 % -- -- 01/01/24 2331 109/65 -- -- 80 -- -- -- -- 01/01/24 2300 129/74 -- -- 91 -- -- -- -- 01/01/24 2210 -- -- -- 73 -- 96 % -- -- 01/01/24 2205 116/76 -- -- 74 -- -- -- -- 01/01/24 2135 137/90 -- -- 80 -- 95 % -- -- 01/01/24 1856 -- 36.9 ???C (98.4 ???F) Oral -- -- -- -- -- 01/01/24 1853 147/78 -- -- 80 16 91 % 1.524 m (5') 47.6 kg (105 lb) Physical Exam Vitals reviewed. Constitutional: Non-ill appearing. No acute distress noted. Head & Face: Head is normocephalic and atraumatic. Face is symmetric. Neck: Supple. Skin: Normal skin color and turgor. Cardiovascular: Peripheral pulses intact. Respiratory: Respirations are easy and regular. Neurologic: Mental Status: Patient is alert and oriented to self, place, time, and situation. Follows commands. Language intact. No aphasia, dysarthria, or apraxias. Patient able to provide good history. Attention span and concentration intact. Recent and remote memory intact. Crani (more content not included)... Normal [facility] CT ABDOMEN PELVIS W IV CONTR Marquita 01-02-2024 CT ABDOMEN PELVIS W IV CONTRAST Clinical history: Nausea and vomiting. Abdominal discomfort. Technique: Spiral CT of the abdomen and pelvis was performed after the intravenous administration of contrast material and oral contrast. Sagittal and coronal reformatted imaging was performed. All CT scans at this facility use dose modulation, iterative reconstruction, and/or weight based dosing when appropriate to reduce radiation dose to as low as reasonably achievable. Comparisons: None Findings: CT ABDOMEN: There is no pneumoperitoneum. The liver, spleen, adrenal glands and pancreas appear unremarkable. Patient status post cholecystectomy. Dilated extrahepatic biliary system likely reflects postcholecystectomy reservoir effect. No suspicious liver lesions. Kidneys are unremarkable with contrast excretion into nondilated renal collecting systems and ureters bilaterally. There is a retroaortic left renal vein. Abdominal aorta is not aneurysmal. There is no retroperitoneal nor mesenteric lymphadenopathy. No dilated bowel loops. CT PELVIS: The appendix is normal. There is no pelvic mass, fluid collection nor lymphadenopathy. Superior endplate fracture at L1 is present which does not appear acute. IMPRESSION: 1. No acute finding in the abdomen nor pelvis. 2. Dilated common hepatic duct and common bile duct likely due to reservoir effect postcholecystectomy. Recommend confirmation by liver function test evaluation. Electronically signed: Shari Turner Vldtd Invalid Interpretation Code [facility] CT HEAD WO IV CONTRASTon CT HEAD WO IV CONTRAST CLINICAL HISTORY: Dizziness, nausea and vomiting. TECHNIQUE: Spiral CT of the brain was performed without contrast material. All CT scans at this facility use dose modulation, iterative reconstruction, and/or weight based dosing when appropriate to reduce radiation dose to as low as reasonably achievable. COMPARISONS: None FINDINGS: The brain appears within normal limits in morphology and attenuation. There is no intracranial mass nor mass effect. Ventricular system appears within normal limits. Basal cisterns and fourth ventricle appear patent. No parenchymal nor extra-axial hemorrhage is identified. Calvarium appears intact. IMPRESSION: Unremarkable unenhanced CT of the brain. Electronically signed: Shari Turner Vldtd Invalid Interpretation Code [facility] CTA HEAD W IV CONTRASTon CTA HEAD W IV CONTRAST CTA HEAD W IV CON TRAST 01/01/2024 10:28 PM Clinical History:Dizziness, nausea vomiting. Comparison:None Procedure: Multidetector CT angiogram performed through the intracranial circulation without complication, including source images and maximum intensity projection 3-D images displayed and reviewed on a PACS workstation by the radiologist. Automatic exposure control (AEC) was utilized. All CT scans at this facility use dose modulation, iterative reconstruction, and/or weight based dosing when appropriate to reduce radiation dose to as low as reasonably achievable. Findings: The petrous, cavernous and supraclinoid segments of the internal carotid arteries appear normal in course and caliber. Distal vertebral arteries and basilar artery are patent. There is significant venous contamination, however accounting for this there is no central branch occlusion nor high-grade central branch stenosis involving the anterior cerebral, middle cerebral, nor posterior cerebral arteries. There is a origin right posterior cerebral arteries; a normal variant. No intracranial aneurysm is identified. IMPRESSION: Unremarkable intracranial CT angiogram. Electronically signed: Shari Turner Vldtd Invalid Interpretation Code [facility] CTA NECK W IV CONTRASTon CTA NECK W IV CONTRAST CTA NECK W IV CON TRAST 01/01/2024 10:28 PM Examination: CTA carotids Clinical History:Nausea and vomiting. Headache. Dizziness. Procedure: Multidetector CT angiogram performed through the cervical portion of the carotid arteries without complication, including source images and maximum intensity projection 3-D images displayed and reviewed on a PACS workstation by the radiologist. Automatic exposure control (AEC) was utilized. All CT scans at this facility use dose modulation, iterative reconstruction, and/or weight based dosing when appropriate to reduce radiation dose to as low as reasonably achievable. Findings: Right carotid system: The right common carotid artery is patent. Right carotid bifurcation is patent. There is 0% right internal carotid artery stenosis by NASCET criteria. Cervical segment of the right internal carotid artery appears patent to the skull base. The right external carotid artery is patent. Left carotid system: There is a bovine arch. Left common carotid artery is patent. Left carotid bifurcation is patent. There is 0% left internal carotid artery stenosis by NASCET criteria. There is some mild tortuosity of the cervical segment of the left internal carotid artery without stenosis, aneurysm, nor dissection. Left external carotid artery is patent. Bilaterally the vertebral arteries appear patent to the skull base. Left chest pacer is present. Advanced biapical centrilobular emphysema. IMPRESSION: 1. Patent cervical carotid arteries. Electronically signed: Shari Turner Vldtd Invalid Interpretation Code [facility] ETHANOLon 01-02-2024 ETHANOL (MG/DL) IN SER/PLAS <10 Normal [facility] Comment on above: Performed By: #### L [id number] ####[facility] [place] [address] ETHANOL CALCULATED (%) Normal Un [facility] Comment on above: Performed By: #### L [id number] ####[facility] ([facility] [place] [address] LACTIC ACID WITH 4 HOUR REFL EXon 01-02-2024 LACTATE (MMOL/L) IN SER/PLAS 0.8 mmol/L Normal 0.5-2.2 [facility] Comment on above: Performed By: #### L [id number] ####[facility] ([facility])[address] [place] [address] LIPASEon 01-02-2024 LIPASE (U/L) IN SER/PLAS 47 U/L Normal 11-82 [facility] Comment on above: Performed By: #### L [id number] ####[facility] ([facility])[address] [place] [address] MAGNESIUMon 01-02-2024 Magnesium [Mass/Vol] 2.1 mg/dL Normal 1.9-2.7 [facility] Comment on above: Performed By: #### L [id number] ####[facility] ([facility] [place] [address] T4, FREEon 01-02-2024 THYROXINE (T4) FREE (NG/DL) IN SER/PLAS 1.66 ng/dL Normal 0.71-1.85 [facility] Comment on above: Performed By: #### L [id number] ####[facility] ([facility])[address] [place] [address] THYROXINE (T4) FREE (NG/DL) IN SER/PLAS 1.44 ng/dL Normal 0.71-1.85 [facility] Comment on above: Performed By: #### L [id number] ####[facility] ([facility])[address] [place] [address] TOXICOLOGY PANEL URINEon 04- 02-2024 AMPHETAMINE+METHAMPHET AMINE SCREEN (PRESENCE) IN URINE Negative Normal Negative [facility] Comment on above: Performed By: #### L [id number] ####[facility] ([facility])[address] [place] [address] BARBITURATES PRESENCE IN URINE BY SCREEN METHOD Negative Normal Negative [facility] Comment on above: Performed By: #### L [id number] ####[facility] ([facility])[address] [place] [address] Benzodiazepines Ql (U) Negative Normal Negative [facility] Comment on above: Performed By: #### L [id number] ####[facility] ([facility])[address] [place] [address] CANNABINOID (PRESENCE) IN URINE BY SCREEN METHOD Negative Normal Negative [facility] Comment on above: Performed By: #### L [id number] ####[facility] ([facility])[address] [place] [address] Cocaine Ql (U) Negative Normal Negative [facility] Comment on above: Performed By: #### L [id number] ####[facility] ([facility])[address] [place] [address] METHADONE (PRESENCE) IN URINE BY SCREEN METHOD Negative Normal Negative [facility] Comment on above: Performed By: #### L [id number] ####[facility] ([facility])[address] [place] [address] OPIATES (PRESENCE) IN URINE BY SCREEN METHOD Negative Normal Negative [facility] Comment on above: Performed By: #### L [id number] ####[facility] ([facility])[address] [place] [address] PHENCYCLIDINE PRESENCE IN URINE BY SCREEN METHOD Negative Normal Negative [facility] Comment on above: Performed By: #### L [id number] ####[facility] ([facility])[address] [place] [address] Propoxyphene Screen Ql (U) Negative Normal Negative [facility] Comment on above: Performed By: #### L [id number] ####[facility] ([facility])[address] [place] [address] TRICYCLIC ANTIDEPRESSANTS (PRESENCE) IN URINE Negative Normal Negative [facility] Comment on above: Performed By: #### L [id number] ####[facility] ([facility])[address] [place] [address] TROPONIN Ion 01-02-2024 Troponin I.cardiac [Mass/Vol] 0.00 ng/mL Normal 0.00-0.04 [facility] Comment on above: Performed By: #### L [id number] ####[facility] ([facility])[address] [place] [address] TSH3 REFLEX TO FT4on 024 THYROTROPIN (MIU/L) IN SER/PLAS BY DETECTION LIMIT <= 0.05 MIU/L 0.01 mIU/L Low 0.34-5.60 [facility] Comment on above: Performed By: #### L [id number] ####[facility] ([facility])[address] [place] [address] THYROTROPIN (MIU/L) IN SER/PLAS BY DETECTION LIMIT <= 0.05 MIU/L 0.02 mIU/L Low 0.34-5.60 [facility] Comment on above: Performed By: #### L [id number] ####[facility] ([facility])[address] [place] [address] URINALYSIS WITH REFLEX CULTU REon 01-02-2024 BILIRUBIN, TOTAL PRESENCE IN URINE Negative Normal Negative [facility] Comment on above: Order Comment: Micro scopics not performed on urines with negative chemical reactions unless requested on original order. Performed By: #### L [id number] ####[facility] ([facility])[address] [facility] [place] [address] Clarity (U) Clear Normal Clear [facility] Comment on above: Order Comment: Micro scopics not performed on urines with negative chemical reactions unless requested on original order. Performed By: #### L [id number] ####[facility] ([facility])[address] [place] [address] Color (U) Straw Abnormal Yellow [facility] Comment on above: Order Comment: Micro scopics not performed on urines with negative chemical reactions unless requested on original order. Performed By: #### L [id number] ####[facility] ([facility] [place] [address] Glucose (U) [Mass/Vol] Negative Normal [facility]: Order Comment: Micro scopics not performed on urines with negative chemical reactions unless requested on original order. Performed By: #### L [id number] ####[facility] ([facility])[address] [place] [address] HEMOGLOBIN PRESENCE IN URINE Negative Normal Negative [facility] Comment on above: Order Comment: Micro scopics not performed on urines with negative chemical reactions unless requested on original order. Performed By: #### L [id number] ####[facility] ([facility])[address] [place] [address] Ketones Ql (U) Trace Abnormal Negative [facility] Comment on above: Order Comment: Micro scopics not performed on urines with negative chemical reactions unless requested on original order. Performed By: #### L [id number] ####[facility] ([facility])[address] [place] [address] LEUKOCYTE ESTERASE PRESENCE IN URINE BY TEST STRIP Negative Normal Negative [facility] Comment on above: Order Comment: Micro scopics not performed on urines with negative chemical reactions unless requested on original order. Performed By: #### L [id number] ####[facility] ([facility])[address] [place] [address] NITRITE PRESENCE IN URINE Negative Normal Negative [facility] Comment on above: Order Comment: Micro scopics not performed on urines with negative chemical reactions unless requested on original order. Performed By: #### L [id number] ####[facility] [place] [address] pH (U) 6.0 [pH] Normal 5.0-8.0 [facility] Comment on above: Order Comment: Micro scopics not performed on urines with negative chemical reactions unless requested on original order. Performed By: #### L [id number] ####[facility] ([facility])[address] [place] [address] Protein (U) [Mass/Vol] Negative Normal [facility] Comment on above: Order Comment: Micro scopics not performed on urines with negative chemical reactions unless requested on original order. Performed By: #### L [id number] ####[facility] ([facility])[address] [place] [address] Specific gravity (U) [Rel density] 1.041 High 1.015-1.02 0 [facility] Comment on above: Order Comment: Micro scopics not performed on urines with negative chemical reactions unless requested on original order. Performed By: #### L [id number] ####[facility] ([facility])[address] [place] [address] EDNURSon 01-01-2024 EDNURS Pt arrives with avani maldonado to triage, states that pt has been seen at [place] [facility] multiple times for increased dizziness, vomiting, and diarrhea for the past 2 weeks. Pt states that she is suppose to get an MRI of her brain done at [facility] but has not scheduled it yet. Reports multiple falls d/t dizziness. Normal [facility] EDPROVon 01-01-2024 EDPROV [facility] [address] [facility] [address] EMERGENCY DEPARTMENT ENCOUNTER 01/01/2024 CHIEF COMPLAINT Chief Complaint Patient presents with Dizziness Vomiting HISTORY OF PRESENT ILLNESS 58 y/o female with a h/o COPD, HLD, hypothyroidism, heart block s/p PM presents to the ED for evaluation of dizziness, vomiting x 2 weeks. Pt endorses intermittent dizziness with sensation of room spinning worsening. Pt reports dizziness worsens with position changes but also occurs at rest. Pt denies CP, SOB. Pt endorses abd discomfort, nausea/vomiting. Pt reports she has had 4lb weight loss d/t inability to tolerate oral intake 2/2 vomiting. Pt denies fevers, chills, cough, URI sx, blurred/double vision, n/w/t of extremities. Pt endorses recurrent falls 2/2 dizziness, but denies head injury. Pt denies neck/back pain. Pt reports she was seen recently as OSH for the same complaints and reportedly she was dx with hiatal hernia and colitis and instructed to get MRI outpt, but reports she has not been able to get it scheduled yet. Pt reports she was started on meclizine by her PCP last week with no improvement in sx. REVIEW OF SYSTEMS Review of Systems Constitutional: Negative for chills and fever. HENT: Negative for congestion and sore throat. Eyes: Negative for redness and visual disturbance. Respiratory: Negative for cough and shortness of breath. Cardiovascular: Negative for chest pain. Gastrointestinal: Positive for abdominal pain, nausea and vomiting. Negative for diarrhea. Genitourinary: Negative for dysuria and frequency. Musculoskeletal: Negative for back pain and neck pain. Skin: Negative for rash. Neurological: Positive for dizziness. Negative for syncope, weakness, numbness and headaches. Psychiatric/Behavioral: Negative for confusion and hallucinations. All other systems reviewed and are negative. PAST MEDICAL HISTORY has a past medical history of Abnormal ECG, COPD (chronic obstructive pulmonary disease) ([facility]), and Hyperlipidemia. SURGICAL HISTORY has a past surgical history that includes Cholecystectomy and Insert / replace / remove pacemaker. CURRENT MEDICATIONS Previous Medications ALBUTEROL 90 MCG/ACTUATION INHALER every 4 (four) hours. BUPROPION XL (WELLBUTRIN XL) 300 MG 24 HR TABLET 1 (one) time each day at the same time. CHOLECALCIFEROL, VITAMIN D3, 50 MCG (2,000 UNIT) CAPSULE 1 capsule 1 (one) time each day at the same time. LAMOTRIGINE (LAMICTAL) 25 MG TABLET Take 2 tablets by mouth in the morning. LANSOPRAZOLE (PREVACID) [address] CAPSULE 1 (one) time each day at the same time. LEVOTHYROXINE (SYNTHROID, LEVOXYL) 125 MCG TABLET Take 125 mcg by mouth in the morning. LORATADINE (CLARITIN) 10 MG TABLET Take 10 mg by mouth in the morning. SIMVASTATIN (ZOCOR) 20 MG TABLET Take 20 mg by mouth at bedtime. ALLERGIES is allergic to compazine [prochlorperazine] and sulfa (sulfonamide antibiotics). FAMILY HISTORY She indicated that her mother is alive. She indicated that her father is . family history includes Alzheimer's disease in her father. SOCIAL HISTORY reports that she has never smoked. She has never used smokeless tobacco. She reports that she does not currently use alcohol. PHYSICIAL EXAM INITIAL VITALS: height is 1.524 m (5') and weight is 47.6 kg (105 lb). Her oral temperature is 36.9 ???C (98.4 ???F). Her blood pressure is 137/90 and her pulse is 80. Her respiration is 16 and oxygen saturation is 95%. Physical Exam Vitals reviewed. Constitutional: General: She is not in acute distress. Appearance: Normal appearance. She is not ill-appearing or toxic-appearing. HENT: Head: Normocephalic and atraumatic. Mouth/Throat: Mouth: Mucous membranes are moist. Eyes: Extraocular Movements: Extraocular movements intact. Right eye: No nystagmus. Left eye: No nystagmus. Conjunctiva/sclera: Conjunctivae normal. Pupils: Pupils are equal, round, and reactive to light. Cardiovascular: Rate and Rhythm: Normal rate and regular rhythm. Heart sounds: Normal heart sounds. Pulmonary: Effort: Pulmonary effort is normal. No respiratory distress. Breath sounds: Normal breath sounds. Chest: Chest wall: No tenderness. Abdominal: General: Bowel sounds are normal. Palpations: Abdomen is soft. Tenderness: There is abdominal tenderness (mid abdomen). There is no guarding or rebound. Musculoskeletal: General: No tenderness. Normal range of motion. Cervical back: Normal range of motion and neck supple. No tenderness. Right lower leg: No edema. Left lower leg: No edema. Skin: General: Skin is warm and dry. Findings: No rash. Neurological: General: No focal deficit present. Mental Status: She is alert and oriented to person, place, and time. Cranial Nerves: Cranial nerves 2-12 are intact. Sensory: Sensation is intact. Motor: Motor functio (more content not included)... Normal [facility] Office Visiton 10-24-2023 Follow-up visit [id number] Dariel Eli 1965 F Date Provider Department Center 10/24/2023 Katie-MARI LOCK[facility]OD [facility] Ej [facility] Family History Problem Relation Age of Onset Alzheimer's disease Father Family Status - Relation Status Age at Mother Alive Father Level of Service:50210 GA OFFICE/OUTPATIENT ESTABLISHED MOD MDM 30 MIN Normal [facility] Orders Onlyon 09-01-2023 Orders Only [id number] Dariel Eli S 1965 F Date Provider Department Center 09/01/2023 MARVIN FAJARDO CARD [facility] Family History Problem Relation Age of Onset Alzheimer's disease Father Family Status - Relation Status Age at Mother Alive Father Normal [facility] Office Visiton 04-26-2023 Follow-up visit [id number] Dariel Eli S 1965 F Date Provider Department Center 04/26/2023 MARI ACHARYA ALECIA [facility] Family History Problem Relation Age of Onset Alzheimer's disease Father Family Status - Relation Status Age at Mother Alive Father Level of Service:03783 GA OFFICE/OUTPATIENT ESTABLISHED MOD MDM 30-39 MIN Normal [facility] CBC AUTO DIFFon 01-07-2023 BASO # 0.0 103/ul Normal 0.0-0.1 [facility] Comment on above: Performed By: #### C BC ####[facility] [address]ev[address] [place] [address]Dr. Shahbaz Rogel Basophils/100 WBC (Bld) 0.3 % Normal 0.2-2.0 [facility] Comment on above: Performed By: #### C BC ####[facility] Tcllwrwtab[address] [place] [address]Dr. Shahbaz Rogel EO # 0.0 103/ul Normal 0.0-0.7 [facility] Comment on above: Performed By: #### C BC ####[facility] Blsjtwyfjz67[address] [place] [address]DrChen Rogel Eosinophils/100 WBC (Bld) 0.0 % Critically low 0.9-7.0 [facility] Comment on above: Performed By: #### C BC ####[facility] Dhqcwumrul0380 [place] [address]DrChen Rogel Erythrocyte distribution width (RBC) [Ratio] 13.5 % Normal 11.0-15.0 [facility] Comment on above: Performed By: #### C BC ####[facility] Rrtwovmcrz6228 [place] [address]Dr. Shahbaz Rogel Hematocrit (Bld) [Volume fraction] 36.4 % Normal 36.0-48.0 [facility] Comment on above: Performed By: #### C BC ####[facility] Imqyjlgudk[address] [place], [place] [address]Dr. Shahbaz Rogel Hemoglobin (Bld) [Mass/Vol] 11.6 g/dL Critically low 12.0-16.0 [facility] Comment on above: Performed By: #### C BC ####[facility] Kgygsmqdea[address] [place], [place] [address]DrChen Rogel IG # 0.06 10e3/ul Critically high 0.00-0.03 [facility] Comment on above: Performed By: #### C BC ####[facility] Rpfghcardn350[address] [place], [place] [address]DrChen Rogel IG % 1.5 % Critically high 0.0-0.5 [facility] Comment on above: Performed By: #### C BC ####[facility] Kvhkbkantm1137[address] [place], [place] [address]DrChen Rogel LYMPH # 0.7 103/ul Critically low 1.2-3.8 [facility] Comment on above: Performed By: #### C BC ####[facility] Ctngocyofi3[address] [place], [place] [address]DrChen Rogel Lymphocytes/100 WBC (Bld) 16.6 % Critically low 20.5-60.0 [facility] Comment on above: Performed By: #### C BC ####[facility] Ajwmtjckji3027[address] [place], [place] [address]DrChen Rogel MANUAL DIFF REQ NO Normal [facility] Comment on above: Performed By: #### C BC ####[facility] Sbmybxtiok59[address] [place], [place] [address]DrChen Rogel MCH (RBC) [Entitic mass] 27.6 pg Normal 26.7-34.0 [facility] Comment on above: Performed By: #### C BC ####[facility] Skzoxxbnxc0324 [place] [address]Dr. Shahbaz Rogel MCHC (RBC) [Mass/Vol] 31.9 g/dL Normal 29.9-35.2 [facility] Comment on above: Performed By: #### C BC ####[facility] Orksuhvpoh8237[address] [place], [place] [address]Dr. Shahbaz Rogel MCV (RBC) [Entitic vol] 86.5 fL Normal 81.0-99.0 [facility] Comment on above: Performed By: #### C BC ####[facility] Hjucevnbux5528[address] [place], [place] [address]DrChen Rogel MONO # 0.2 103/ul Critically low 0.3-0.8 [facility] Comment on above: Performed By: #### C BC ####[facility] Hvadjksjjg284[address] [place], [place] [address]Dr. Shahbaz Rogel Monocytes/100 WBC (Bld) 5.0 % Normal 1.7-12.0 [facility] Comment on above: Performed By: #### C BC ####[facility] Bhtzuvvsqs6579[address] [place], [place] [address]DrChen Rogel NEUT # 3.1 103/ul Normal 1.4-6.5 [facility] Comment on above: Performed By: #### C BC ####[facility] Mizoeyhjpi329[address] [place], [place] [address]Dr. Shahbaz Rogel Neutrophils/100 WBC (Bld) 76.6 % Critically high 43.0-75.0 [facility] Comment on above: Performed By: #### C BC ####[facility] Gnyjmjffvg7735[address] [place], [place] [address]DrChen Rogel Platelet mean volume (Bld) [Entitic vol] 9.9 fL Normal 9.5-13.5 [facility] Comment on above: Performed By: #### C BC ####[facility] Sppouahaem020[address] [place], [place] [address]Dr. Shahbaz Rogel PLT 194 103/ul Normal 150-450 [facility] Comment on above: Performed By: #### C BC ####[facility] Tamilyynzn6317 [place] [address]Dr. Shahbaz Rogel RBC 4.21 106/ul Normal 4.20-5.40 [facility] Comment on above: Performed By: #### C BC ####[facility] Refntrakes9883 [place] [address]Dr. Shahbaz Rogel WBC 4.0 103/ul Normal 4.0-11.0 [facility] Comment on above: Performed By: #### C BC ####[facility] Oyktlonkyq6476 [place] [address]DrChen Rogel PROF CHEM 8 (BAS METB)on Anion gap [Moles/Vol] 9.5 mmol/L Normal [facility] Comment on above: Performed By: #### B MP ####[facility] Edkbbqhkoc714[address] [place], [place] [address]Dr. Shahbaz Rogel Calcium [Mass/Vol] 8.8 mg/dL Normal 8.5-10.1 [facility] Comment on above: Performed By: #### B MP ####[facility] Wrampklhjv355[address] [place], [place] [address]Dr. Shahbaz Rogel Chloride [Moles/Vol] 106 mmol/L Normal 98-107 [facility] Comment on above: Performed By: #### B MP ####[facility] Unvsfwkyoi656[address] [place], [place] [address]Dr. Shahbaz Rogel CO2 [Moles/Vol] 29.6 mmol/L Normal 21.0-32.0 [facility] Comment on above: Performed By: #### B MP ####[facility] Bbyissnmkb0928[address] [place], [place] [address]Dr. Shahbaz Rogel Creatinine [Mass/Vol] 0.80 mg/dL Normal 0.55-1.02 [facility] Comment on above: Performed By: #### B MP ####[facility] Okggqfudft4544[address] [place], [place] [address]Dr. Shahbaz Rogel EGFR-AF HAITIAN >60 Normal >=60 [facility] Comment on above: Performed By: #### B MP ####[facility] Iaglgnhsfc4460 [place] [id number]. Shahbaz Juan F EGFR-NON AF HAITIAN >60 Normal >=60 [facility] Comment on above: Performed By: #### B MP ####[facility] Lsatqubxyt9297 [place] [id number]. Shahbaz Rogel Glucose [Mass/Vol] 137 mg/dL Critically high 74-106 [facility] Comment on above: Performed By: #### B MP ####[facility] Eccjpuyhxi5371 [place] [id number]. Shahbaz Rogel Potassium [Moles/Vol] 4.1 mmol/L Normal 3.5-5.1 [facility] Comment on above: Performed By: #### B MP ####[facility] Nqeqtkarus7237[address] [place], [place] [address]Dr. Shahbaz Rogel Sodium [Moles/Vol] 141 mmol/L Normal 136-145 [facility] Comment on above: Performed By: #### B MP ####[facility] Fmrlrsgqqs1547 [place] [id number]. Shahbaz Rogel Urea nitrogen [Mass/Vol] 18.0 mg/dL Normal 7.0-18.0 [facility] Comment on above: Performed By: #### B MP ####[facility] Zyzkcpuyup12[address] [place] [address]Dr. Shahbaz Rogel Urea nitrogen/Creatinine [Mass ratio] 22.5 mg/mg Normal [facility] Comment on above: Performed By: #### B MP ####[facility] Gxgpunejej7000 [place] [id number]. Shahbaz Rogel CBC AUTO DIFFon 01-06-2023 BASO # 0.0 103/ul Normal 0.0-0.1 [facility] Comment on above: Performed By: #### C BC ####[facility] Bkweoxttot2288 [place] [id number]. Shahbaz Rogel Basophils/100 WBC (Bld) 0.0 % Critically low 0.2-2.0 [facility] Comment on above: Performed By: #### C BC ####[facility] Txmexwzaap5774 [place] [address]DrChen Rogel EO # 0.0 103/ul Normal 0.0-0.7 [facility] Comment on above: Performed By: #### C BC ####[facility] Kzdclyafky3469 [place] [address]DrChen Rogel Eosinophils/100 WBC (Bld) 0.0 % Critically low 0.9-7.0 [facility] Comment on above: Performed By: #### C BC ####[facility] Amasnfbevz860[address] [place], [place] [address]DrChen Rogel Erythrocyte distribution width (RBC) [Ratio] 13.8 % Normal 11.0-15.0 [facility] Comment on above: Performed By: #### C BC ####[facility] Iwviipqsee3899[address] [place], [place] [address]DrChen Rogel Hematocrit (Bld) [Volume fraction] 36.9 % Normal 36.0-48.0 [facility] Comment on above: Performed By: #### C BC ####[facility] Hzealgxett24[address] [place], [place] [address]DrChen Rogel Hemoglobin (Bld) [Mass/Vol] 11.8 g/dL Critically low 12.0-16.0 [facility] Comment on above: Performed By: #### C BC ####[facility] Ampezwilij878[address] [place], [place] [address]DrChen Rogel IG # 0.04 10e3/ul Critically high 0.00-0.03 [facility] Comment on above: Performed By: #### C BC ####[facility] Emoydoixnk0500[address] [place], [place] [address]DrChen Rogel IG % 1.1 % Critically high 0.0-0.5 [facility] Comment on above: Performed By: #### C BC ####[facility] Ytyqffgjdu9185[address] [place], [place] [address]DrChen Rogel LYMPH # 0.5 103/ul Critically low 1.2-3.8 [facility] Comment on above: Performed By: #### C BC ####[facility] Dtxeqovsrt6851 [place] [address]DrChen Rogel Lymphocytes/100 WBC (Bld) 13.9 % Critically low 20.5-60.0 [facility] Comment on above: Performed By: #### C BC ####[facility] Xvlqntfrak4864 [place] [address]DrChen Rogel MANUAL DIFF REQ NO Normal [facility] Comment on above: Performed By: #### C BC ####[facility] Gxzmqjevjb3606 [place] [address]DrChen Rogel MCH (RBC) [Entitic mass] 27.8 pg Normal 26.7-34.0 [facility] Comment on above: Performed By: #### C BC ####[facility] Xpmfanagiw728[address] [place], [place] [address]Dr. Shahbaz Rogel MCHC (RBC) [Mass/Vol] 32.0 g/dL Normal 29.9-35.2 [facility] Comment on above: Performed By: #### C BC ####[facility] Grelfewpwt555[address] [place], [place] [address]DrChen Rogel MCV (RBC) [Entitic vol] 86.8 fL Normal 81.0-99.0 [facility] Comment on above: Performed By: #### C BC ####[facility] Lddhkyrkpb6317[address] [place], [place] [address]DrChen Rogel MONO # 0.1 103/ul Critically low 0.3-0.8 [facility] Comment on above: Performed By: #### C BC ####[facility] Kxxsmkyuno312189 [address] [place], [place] [address]DrChen Rogel Monocytes/100 WBC (Bld) 3.7 % Normal 1.7-12.0 [facility] Comment on above: Performed By: #### C BC ####[facility] Nihyeduvwq1039[address] [place], [place] [address]DrChen Rogel NEUT # 3.1 103/ul Normal 1.4-6.5 [facility] Comment on above: Performed By: #### C BC ####[facility] Ssdxuvhobv[address] [place] [address]Dr. Shahbaz Rogel Neutrophils/100 WBC (Bld) 81.3 % Critically high 43.0-75.0 [facility] Comment on above: Performed By: #### C BC ####[facility] Rizkbzliwi5491 [place] [address]Dr. Shahbaz Rogel Platelet mean volume (Bld) [Entitic vol] 9.8 fL Normal 9.5-13.5 [facility] Comment on above: Performed By: #### C BC ####[facility] Rbbaoiifso7587[address] [place], [place] [address]Dr. Shahbaz Rogel PLT 184 103/ul Normal 150-450 [facility] Comment on above: Performed By: #### C BC ####[facility] Jphffmaqso3800[address] [place], [place] [address]Dr. Shahbaz Rogel RBC 4.25 106/ul Normal 4.20-5.40 [facility] Comment on above: Performed By: #### C BC ####[facility] Msavmnsnbo532[address] [place], [place] [address]Dr. Shahbaz Rogel WBC 3.8 103/ul Critically low 4.0-11.0 [facility] Comment on above: Performed By: #### C BC ####[facility] Zfhpjyrfcp05[address] [place], [place] [address]Dr. Shahbaz Rogel PROF CHEM 8 (BAS METB)on Anion gap [Moles/Vol] 9.2 mmol/L Normal [facility] Comment on above: Performed By: #### B MP ####[facility] Etijexkwee3599[address] [place], [place] [address]DrChen Rogel Calcium [Mass/Vol] 8.6 mg/dL Normal 8.5-10.1 [facility] Comment on above: Performed By: #### B MP ####[facility] Jhhxpcwire2505[address] [place], [place] [address]Dr. Shahbaz Rogel Chloride [Moles/Vol] 107 mmol/L Normal 98-107 [facility] Comment on above: Performed By: #### B MP ####[facility] Pkuzfbmrwa6314 [place] [address]Dr. Lilajarrod Juan F CO2 [Moles/Vol] 29.3 mmol/L Normal 21.0-32.0 [facility] Comment on above: Performed By: #### B MP ####[facility] Deipdzayzw7335 [place] [address]Dr. Shahbaz Rogel Creatinine [Mass/Vol] 0.79 mg/dL Normal 0.55-1.02 [facility] Comment on above: Performed By: #### B MP ####[facility] Tuqnicfgrz3662 [place] [address]Dr. Shahbaz Rogel EGFR-AF HAITIAN >60 Normal >=60 [facility] Comment on above: Performed By: #### B MP ####[facility] Srcuzomahd276[address] [place], [place] [address]Dr. Shahbaz Rogel EGFR-NON AF HAITIAN >60 Normal >=60 [facility] Comment on above: Performed By: #### B MP ####[facility] Mlkaniyoud3477[address] [place], [place] [address]Dr. Shahbaz Rogel Glucose [Mass/Vol] 159 mg/dL Critically high 74-106 [facility] Comment on above: Performed By: #### B MP ####[facility] Dlvicfhuzx9246 [place] [address]Dr. Shahbaz Rogel Potassium [Moles/Vol] 3.5 mmol/L Normal 3.5-5.1 [facility] Comment on above: Performed By: #### B MP ####[facility] Kfrbnrjqwu5904 [place] [address]Dr. Shahbaz Rogel Sodium [Moles/Vol] 142 mmol/L Normal 136-145 [facility] Comment on above: Performed By: #### B MP ####[facility] Zylxchhfae2483 [place] [address]Dr. Shahbaz Rogel Urea nitrogen [Mass/Vol] 21.0 mg/dL Critically high 7.0-18.0 [facility] Comment on above: Performed By: #### B MP ####[facility] Njorysfcvl3289 [place] [address]Dr. Shahbaz Rogel Urea nitrogen/Creatinine [Mass ratio] 26.6 mg/mg Normal [facility] Comment on above: Performed By: #### B MP ####[facility] Grpbzkehuw5079 [place] [address]Dr. Shahbaz Rogel XR CHEST 2 Von 01-06-2023 XR CHEST 2 V Normal [facility] CBC AUTO DIFFon 01-05-2023 BASO # 0.0 103/ul Normal 0.0-0.1 [facility] Comment on above: Performed By: #### C BC ####[facility] Jyetpwmmfx810[address] [place], [place] [address]Dr. Shahbaz Rogel Basophils/100 WBC (Bld) 0.2 % Normal 0.2-2.0 [facility] Comment on above: Performed By: #### C BC ####[facility] Dduldnoawe744[address] [place], [place] [address]Dr. Shahbaz Rogel EO # 0.0 103/ul Normal 0.0-0.7 [facility] Comment on above: Performed By: #### C BC ####[facility] Ctwftbyidu1399[address] [place], [place] [address]Dr. Shahbaz Rogel Eosinophils/100 WBC (Bld) 0.0 % Critically low 0.9-7.0 [facility] Comment on above: Performed By: #### C BC ####[facility] Kklezfgjxf327[address] [place], [place] [address]Dr. Shahbaz Rogel Erythrocyte distribution width (RBC) [Ratio] 13.6 % Normal 11.0-15.0 [facility] Comment on above: Performed By: #### C BC ####[facility] Zkjmhjscdz928[address] [place], [place] [address]Dr. Shahbaz Rogel Hematocrit (Bld) [Volume fraction] 36.6 % Normal 36.0-48.0 [facility] Comment on above: Performed By: #### C BC ####[facility] Ymqsdbdnja[address] [place], [place] [id number]. Shahbaz Rogel Hemoglobin (Bld) [Mass/Vol] 11.6 g/dL Critically low 12.0-16.0 [facility] Comment on above: Performed By: #### C BC ####[facility] Aybayotcod[address] [place] [address]Dr. Shahbaz Rogel IG # 0.03 10e3/ul Normal 0.00-0.03 [facility] Comment on above: Performed By: #### C BC ####[facility] Dpetwlimvg0015 [place] [address]Dr. Shahbaz Juan F IG % 0.5 % Normal 0.0-0.5 [facility] Comment on above: Performed By: #### C BC ####[facility] Ibwokafcgm6221 [place] [address]Dr. Shahbaz Rogel LYMPH # 0.6 103/ul Critically low 1.2-3.8 [facility] Comment on above: Performed By: #### C BC ####[facility] Mytomweznt7359 [place] [address]Dr. Lilajarrod Rogel Lymphocytes/100 WBC (Bld) 10.7 % Critically low 20.5-60.0 [facility] Comment on above: Performed By: #### C BC ####[facility] Iflpjzgizz0688 [place] [address]Dr. Lilajarrod Rogel MANUAL DIFF REQ NO Normal [facility] Comment on above: Performed By: #### C BC ####[facility] Jcjdawasvj6492 [place] [address]Dr. Shahbaz Juan F MCH (RBC) [Entitic mass] 27.7 pg Normal 26.7-34.0 [facility] Comment on above: Performed By: #### C BC ####[facility] Otnhxcjrhs3864[address] [place], [place] [address]Dr. Shahbaz Juan F MCHC (RBC) [Mass/Vol] 31.7 g/dL Normal 29.9-35.2 [facility] Comment on above: Performed By: #### C BC ####[facility] Amaedkitxj420[address] [place], [place] [address]DrChen Sharpjarrod Juan F MCV (RBC) [Entitic vol] 87.4 fL Normal 81.0-99.0 [facility] Comment on above: Performed By: #### C BC ####[facility] Rsesxezbri1559 [place] [address]Dr. Lilajarrod Juan F MONO # 0.1 103/ul Critically low 0.3-0.8 [facility] Comment on above: Performed By: #### C BC ####[facility] Errvjeeakj3330[address] [place], [place] [address]Dr. Shahbaz Rogel Monocytes/100 WBC (Bld) 2.5 % Normal 1.7-12.0 [facility] Comment on above: Performed By: #### C BC ####[facility] Ddqlqonkgg050[address] [place], [place] [address]Dr. Lilajarrod Juan F NEUT # 4.8 103/ul Normal 1.4-6.5 [facility] Comment on above: Performed By: #### C BC ####[facility] Ezqgwjjgzk9537[address] [place], [place] [address]Dr. Shahbaz Rogel Neutrophils/100 WBC (Bld) 86.1 % Critically high 43.0-75.0 [facility] Comment on above: Performed By: #### C BC ####[facility] Oohukyxxlw748[address] [place], [place] [address]Dr. Shahbaz Rogel Platelet mean volume (Bld) [Entitic vol] 10.0 fL Normal 9.5-13.5 [facility] Comment on above: Performed By: #### C BC ####[facility] Yuyloubrdz517[address] [place], [place] [address]Dr. Shahbaz Rogel PLT 193 103/ul Normal 150-450 [facility] Comment on above: Performed By: #### C BC ####[facility] Nmvumfzzfl5301[address] [place], [place] [address]Dr. Shahbaz Rogel RBC 4.19 106/ul Critically low 4.20-5.40 [facility] Comment on above: Performed By: #### C BC ####[facility] Phvzdqkkfb5060[address] [place], [place] [address]Dr. Shahbaz Rogel WBC 5.6 103/ul Normal 4.0-11.0 [facility] Comment on above: Performed By: #### C BC ####[facility] Womlmxkhcs1235 [place] [address]Dr. Shahbaz Rogel PROF CHEM 8 (BAS METB)on Anion gap [Moles/Vol] 12.7 mmol/L Normal [facility] Comment on above: Performed By: #### B MP ####[facility] Lnarrchifu247[address] [place], [place] [address]Dr. Shahbaz Rogel Calcium [Mass/Vol] 8.8 mg/dL Normal 8.5-10.1 [facility] Comment on above: Performed By: #### B MP ####[facility] Noiwssscub685[address] [place], [place] [address]Dr. Shahbaz Rogel Chloride [Moles/Vol] 107 mmol/L Normal 98-107 [facility] Comment on above: Performed By: #### B MP ####[facility] Ehjbopyndq3026[address] [place], [place] [address]Dr. Shahbaz Rogel CO2 [Moles/Vol] 26.9 mmol/L Normal 21.0-32.0 [facility] Comment on above: Performed By: #### B MP ####[facility] Umibozaqti540[address] [place], [place] [address]Dr. Shahbaz Rogel Creatinine [Mass/Vol] 0.81 mg/dL Normal 0.55-1.02 [facility] Comment on above: Performed By: #### B MP ####[facility] Zdsahhudif28[address] [place], [place] [address]Dr. Shahbaz Rogel EGFR-AF HAITIAN >60 Normal >=60 [facility] Comment on above: Performed By: #### B MP ####[facility] Kjibvdhzec89[address] [place], [place] [address]Dr. Shahbaz Rogel EGFR-NON AF HAITIAN >60 Normal >=60 [facility] Comment on above: Performed By: #### B MP ####[facility] Wpytcnlhrw747[address] [place], [place] [address]Dr. Shahbaz Rogel Glucose [Mass/Vol] 144 mg/dL Critically high 74-106 [facility] Comment on above: Performed By: #### B MP ####[facility] Oqagcikord28[address] [place], [place] [address]Dr. Shahbaz Rogel Potassium [Moles/Vol] 3.6 mmol/L Normal 3.5-5.1 [facility] Comment on above: Performed By: #### B MP ####[facility] Aotsgehjvn23[address] [place], [place] [address]Dr. Lilajarrod Juan F Sodium [Moles/Vol] 143 mmol/L Normal 136-145 [facility] [place] [facility] Comment on above: Performed By: #### B MP ####[facility] Crzxjsrvtv[address] [place], [place] [address]Dr. Shahbaz Juan F Urea nitrogen [Mass/Vol] 20.0 mg/dL Critically high 7.0-18.0 [facility] [place] [facility] Comment on above: Performed By: #### B MP ####[facility] Zsoephufmq71[address] [place], [place] [address]Dr. Shahbaz Rogel Urea nitrogen/Creatinine [Mass ratio] 24.7 mg/mg Normal [facility] [place] [facility] Comment on above: Performed By: #### B MP ####[facility] Zwaowhacmq167[address] [place], [place] [address]Dr. Shahbaz Juan F CBC W MANUAL DIFFon 01-05-20 23 ATYPICAL LYMPH # Normal [facility] [place] [facility] Comment on above: Performed By: #### C CAIN ####[facility] Qtyiznonki739[address] [place], [place] [address]Dr. Shahbaz Rogel ATYPICAL LYMPH % Normal [facility] Comment on above: Performed By: #### C CAIN ####[facility] Gqhnnrdpnp[address] [place], [place] [address]Dr. Shahbza Rogel BAND # 0.0 103/ul Normal 0.0-0.3 [facility] Comment on above: Performed By: #### C CAIN ####[facility] Mdnzutnjxg077[address] [place], [place] [address]Dr. hSahbaz Rogel BAND % 0 % Normal 0-5 [facility] Comment on above: Performed By: #### C CAIN ####[facility] Yaecbvensw0603 [place] [id number]. Shahbaz Rogel BASOM # 0.00 103/ul Normal 0.00-0.10 [facility] Comment on above: Performed By: #### C BCMAN ####[facility] Orjepxrmqw4260 [place] [id number]. Shahbaz Rogel BASOM % 0.0 % Critically low 0.2-2.0 [facility] Comment on above: Performed By: #### C BCMAN ####[facility] Oiycdhezbu1761 [place] [id number]. Shahbaz Rogel BLAST # Normal [facility] Comment on above: Performed By: #### C BCBRICE ####[facility] Ctrmgwdehd[address] [place] [address]Dr. Shahbaz Rogel BLAST % Normal [facility] Comment on above: Performed By: #### C BCBRICE ####[facility] Kkzgwmtgza79[address] [place], [place] [address]Dr. Shahbaz Rogel CORRECTED WBC Normal 4.0-11.0 [facility] Comment on above: Performed By: #### C BCBRICE ####[facility] Npbpblagze[address] [place], [place] [address]Dr. Shahbaz Rogel EOS # 0.00 103/ul Normal 0.00-0.70 [facility] Comment on above: Performed By: #### C BCBRICE ####[facility] Wjczevjpyu65[address] [place], [place] [address]Dr. Shahbaz Rogel EOS% 0.0 % Critically low 0.9-7.0 [facility] Comment on above: Performed By: #### C BCMAN ####[facility] Sfkpvxeadf4[address] [place], [place] [address]Dr. Shahbaz Rogel HCT 36.5 % Normal 36.0-48.0 [facility] Comment on above: Performed By: #### C BCBRICE ####[facility] Hkxksrgywa112[address] [place], [place] [address]Dr. Shahbaz Rogel HGB 11.8 g/dl Critically low 12.0-16.0 [facility] Comment on above: Performed By: #### C CAIN ####[facility] Vmiyngmzoy0295 [place] [id number]. Shahbaz Rogel LYMPHM # 0.42 103/ul Critically low 1.20-3.80 [facility] Comment on above: Performed By: #### C CAIN ####[facility] Alzyxdvubb0251 [place] [id number]. Shahbaz Rogel LYMPHM% 12.0 % Critically low 20.5-60.0 [facility] Comment on above: Performed By: #### C CAIN ####[facility] Ongggrubso3042 [place] [id number]. Shahbaz Rogel MCH 28.0 pg Normal 26.7-34.0 [facility] Comment on above: Performed By: #### C CAIN ####[facility] Qhumxemgfe2680 [place] [address]Dr. Shahbaz Rogel MCHC 32.3 g/dl Normal 29.9-35.2 [facility] Comment on above: Performed By: #### C CAIN ####[facility] Lprrjytlzg2219 [place] [address]Dr. Shahbaz Rogel MCV 86.7 fL Normal 81.0-99.0 [facility] Comment on above: Performed By: #### C CAIN ####[facility] Nhtueyjzqg3386 [place] [address]Dr. Shahbaz Rogel METAMYELOCYTE # Normal [facility] Comment on above: Performed By: #### C CAIN ####[facility] Drbmezqxhq4209 [place] [address]Dr. Shahbaz Rogel METAMYELOCYTE % Normal [facility] Comment on above: Performed By: #### C CAIN ####[facility] Lpvkjikgnc6975 [place] [address]Dr. Shahbaz Rogel MONOM# 0.07 103/ul Critically low 0.30-0.80 [facility] Comment on above: Performed By: #### C CAIN ####[facility] Aniuapphwc4761 [place] [address]Dr. Shahbaz Rogel MONOM% 2.0 % Normal 1.7-12.0 [facility] Comment on above: Performed By: #### C CAIN ####[facility] Urqtsvrvko9675 [place] [address]Dr. Shahbaz Rogel MPV 9.9 fL Normal 9.5-13.5 [facility] Comment on above: Performed By: #### C CAIN ####[facility] Jyvadoykvj6729 [place] [address]Dr. Shahbaz Rogel MYELOCYTE # Normal [facility] Comment on above: Performed By: #### C CAIN ####[facility] Nzvdgayoil5864 [place] [address]Dr. Shahbaz Rogel MYELOCYTE % Normal [facility] Comment on above: Performed By: #### C CAIN ####[facility] Svgbcvebki6523 [place] [address]Dr. Shahbaz Rogel NRBC Normal [facility] Comment on above: Performed By: #### C CAIN ####[facility] Yxrbuzrbbf4963 [place] [address]Dr. Shahbaz Rogel PLT 178 103/ul Normal 150-450 [facility] Comment on above: Performed By: #### C CAIN ####[facility] Rrhniaclgc2338 [place] [address]Dr. Shahbaz Rogel RBC 4.21 106/ul Normal 4.20-5.40 [facility] Comment on above: Performed By: #### C CAIN ####[facility] Pprdombmzm1972 [place] [address]Dr. Shahbaz Rogel RDW 13.2 % Normal 11.0-15.0 [facility] Comment on above: Performed By: #### C CAIN ####[facility] Nawzzxnahr2368 [place] [address]Dr. Shahbaz Rogel SEG # 3.01 103/ul Normal 1.40-6.50 [facility] Comment on above: Performed By: #### C CAIN ####[facility] Kjllcyidmu5068 [place] [address]Dr. Shahbaz Rogel SEG % 86.0 % Critically high 43.0-75.0 [facility] Comment on above: Performed By: #### C BCMAN ####[facility] Kruahykzou8857 [place] [address]Dr. Lilajarrod Juan F WBC 3.5 103/ul Critically low 4.0-11.0 [facility] Comment on above: Performed By: #### C CAIN ####[facility] Rxyurdqnzn4005 [place] [address]Dr. Shahbaz Rogel PROF CHEM 8 (BAS METB)on Anion gap [Moles/Vol] 10.5 mmol/L Normal [facility] Comment on above: Performed By: #### B MP ####[facility] Cqnqvzugel1562 [place] [address]Dr. Shahbaz Rogel Calcium [Mass/Vol] 8.7 mg/dL Normal 8.5-10.1 [facility] Comment on above: Performed By: #### B MP ####[facility] Nlhfdkzhap96[address] [place], [place] [address]Dr. Shahbaz Rogel Chloride [Moles/Vol] 108 mmol/L Critically high 98-107 [facility] Comment on above: Performed By: #### B MP ####[facility] Lhzwbmhtsq8190[address] [place], [place] [address]Dr. Shahbaz Rogel CO2 [Moles/Vol] 25.2 mmol/L Normal 21.0-32.0 [facility] Comment on above: Performed By: #### B MP ####[facility] Sqaprzfzlb7990 [place] [address]Dr. Shahbaz Rogel Creatinine [Mass/Vol] 0.77 mg/dL Normal 0.55-1.02 [facility] Comment on above: Performed By: #### B MP ####[facility] Omduqrvgzp3742 [place] [address]Dr. Shahbaz Rogel EGFR-AF HAITIAN >60 Normal >=60 [facility] Comment on above: Performed By: #### B MP ####[facility] Pmlosnjicd5371 [place] [address]Dr. Lilajarrod Juan F EGFR-NON AF HAITIAN >60 Normal >=60 [facility] Comment on above: Performed By: #### B MP ####[facility] Pcjodtjiom0[address] [place], [place] [address]Dr. Lilajarrod Juan F Glucose [Mass/Vol] 169 mg/dL Critically high 74-106 [facility] Comment on above: Performed By: #### B MP ####[facility] Xgxgjolenb44[address] [place], [place] [address]Dr. Shahbaz Rogel Potassium [Moles/Vol] 3.7 mmol/L Normal 3.5-5.1 [facility] Comment on above: Performed By: #### B MP ####[facility] Ibxctygoib3736[address] [place], [place] [address]Dr. Shahbaz Rogel Sodium [Moles/Vol] 140 mmol/L Normal 136-145 [facility] Comment on above: Performed By: #### B MP ####[facility] Okqmyxhnmw595[address] [place], [place] [address]Dr. Shahbaz Rogel Urea nitrogen [Mass/Vol] 14.0 mg/dL Normal 7.0-18.0 [facility] Comment on above: Performed By: #### B MP ####[facility] Xayzbqsqwa776[address] [place], [place] [address]Dr. Shahbaz Rogel Urea nitrogen/Creatinine [Mass ratio] 18.2 mg/mg Normal [facility] Comment on above: Performed By: #### B MP ####[facility] Sargotkcdq1704[address] [place], [place] [address]Dr. Shahbaz Rogel RESPIRATORY PANEL PLUSon Adenovirus Not detected Normal NOT DETECTED [facility] Comment on above: Performed By: #### R SPLUS ####[facility] Oaqwszsowa50[address] [place], [place] [address]Dr. Shahbaz Rogel B. Parapertusis Not detected Normal NOT DETECTED [facility] Comment on above: Performed By: #### R SPLUS ####[facility] Zrjhokehgx16[address] [place], [place] [address]Dr. Shahbaz Rogel B. Pertussis Not detected Normal NOT DETECTED [facility] Comment on above: Performed By: #### R SPLUS ####[facility] Crjroxuaae5976 [place] [address]Dr. Yilan Rogel Chlamydia Pneumoniae Not detected Normal NOT DETECTED [facility] Comment on above: Performed By: #### R SPLUS ####[facility] Iotkjihumx0116[address] [place], [place] [address]Dr. Yijarrod Rogel Coronavirus 229E Not detected Normal NOT DETECTED [facility] Comment on above: Performed By: #### R SPLUS ####[facility] Wtbvvfbbpc8245[address] [place], [place] [address]Dr. [facility] Coronavirus HKU1 Not detected Normal NOT DETECTED [facility] Comment on above: Performed By: #### R SPLUS ####[facility] Gptyvlwyaa1737[address] [place], [place] [address]Dr. jarrod Rogel Coronavirus NL63 Not detected Normal NOT DETECTED [facility] Comment on above: Performed By: #### R SPLUS ####[facility] Utsgtwttut1911[address] [place], [place] [address]Dr. [facility] Coronavirus OC43 Not detected Normal NOT DETECTED [facility] Comment on above: Performed By: #### R SPLUS ####[facility] Qewjmhjgfd405[address] [place], [place] [address]Dr. Yilan Rogel Influenza A H1 Not detected Normal NOT DETECTED [facility] Comment on above: Performed By: #### R SPLUS ####[facility] Qdlujdoncg659[address] [place], [place] [address]Dr. Yilan Rogel Influenza A H1 2009 Not detected Normal NOT DETECTED [facility] Comment on above: Performed By: #### R SPLUS ####[facility] Ynrbzzmjtp6055[address] [place], [place] [address]Dr. Yilan Rogel Influenza A H3 Not detected Normal NOT DETECTED [facility] Comment on above: Performed By: #### R SPLUS ####[facility] Igeaofsxzo5280[address] [place], [place] [address]Dr. Yilan Rogel Influenza B Not detected Normal NOT DETECTED [facility] Comment on above: Performed By: #### R SPLUS ####[facility] Otzqafqmrr5249 [place] [id number]. Shahbaz Rogel Metapneumovirus Detected Abnormal NOT DETECTED [facility] Comment on above: Performed By: #### R SPLUS ####[facility] Ogrlccaudg0568 [place] [address]Dr. Shahbaz Rogel Mycoplas. Pneumoniae Not detected Normal NOT DETECTED [facility] Comment on above: Performed By: #### R SPLUS ####[facility] Onleoohvnl9750[address] [place], [place] [address]Dr. Shahbaz Rogel Parainfluenza 1 Not detected Normal NOT DETECTED [facility] Comment on above: Performed By: #### R SPLUS ####[facility] Xelxmcydpr792[address] [place], [place] [address]Dr. Shahbaz Rogel Parainfluenza 2 Not detected Normal NOT DETECTED [facility] Comment on above: Performed By: #### R SPLUS ####[facility] Aymdszpapf[address] [place], [place] [address]Dr. Shahbaz Rogel Parainfluenza 3 Not detected Normal NOT DETECTED [facility] Comment on above: Performed By: #### R SPLUS ####[facility] Jzzlzwhdbl304[address] [place], [place] [address]Dr. Shahbaz Rogel Parainfluenza 4 Not detected Normal NOT DETECTED [facility] Comment on above: Performed By: #### R SPLUS ####[facility] Gifwkjlani0836[address] [place], [place] [address]Dr. Shahbaz Rogel Rhino/Enterovirus Not detected Normal NOT DETECTED [facility] Comment on above: Performed By: #### R SPLUS ####[facility] Gvrsjqgtcf5868 [place] [address]Dr. Shahbaz Rogel RP2 Header 1 RESPIRATORY PANEL: VIRUSES Normal [facility] Comment on above: Performed By: #### R SPLUS ####[facility] Xrxruglwrn2234[address] [place], [place] [address]Dr. Shahbaz Rogel RP2 Header 2 RESPIRATORY PANEL: BACTERIA Normal [facility] Comment on above: Performed By: #### R SPLUS ####[facility] Wcltndzjso4952 [place] [address]Dr. Shahbaz Rogel RSV Not detected Normal NOT DETECTED [facility] Comment on above: Performed By: #### R SPLUS ####[facility] Mrjxaiyzks2818 [place] [address]Dr. Shahbaz Rogel SARS-CoV-2 (COVID-19) RNA PAVAN+probe Ql (Unsp spec) Not detected Normal NOT DETECTED [facility] Comment on above: Performed By: #### R SPLUS ####[facility] Kyelztqqvy175[address] [place], [place] [address]Dr. Shahbaz Juan F CARDIAC ROSALINA 3-6on 3 CK [Catalytic activity/Vol] 148 U/L Normal 26-192 [facility] Comment on above: Performed By: #### C MREP ####[facility] Uqjngdnqjc8838[address] [place], [place] [address]Dr. Shahbaz Juan F CK.MB [Mass/Vol] 0.84 ng/mL Normal <=3.60 [facility] Comment on above: Performed By: #### C MREP ####[facility] Tmimjwdzmg58[address] [place], [place] [address]Dr. Shahbaz Rogel HSTROP 6.4 pg/mL Normal 4.0-51.3 [facility] Comment on above: Result Comment: CUT- OFF POINTS HAVE BEEN ESTABLISHED BASED ON THE FOURTH UNIVERSAL DEFINITIONS OF MYOCARDIALINFARCTION. THE UPPER REFERENCE LIMIT (URL) OF TROPONIN, DEFINED THE 99TH PERCENTILE OFcTnI DISTRIBUTION IN A REFERENCE POPULATION, HAS BEEN CONFIRMED THE DECISION THRESHOLDFOR [place] DIAGNOSIS. Performed By: #### C MREP ####[facility] Huonpgifpv6077[address] [place], [place] [address]Dr. Shahbaz Juan F CBC W MANUAL DIFFon 01-04-20 23 ATYPICAL LYMPH # Normal [facility] Comment on above: Performed By: #### C BCMAN ####[facility] Xjzgfihrtt1242 [place] [address]Dr. Shahbaz Juan F ATYPICAL LYMPH % Normal [facility] Comment on above: Performed By: #### C BCMAN ####[facility] Jktotxyqks2866 [place] [address]Dr. Yijarrod Rogel BAND # 0.0 103/ul Normal 0.0-0.3 [facility] Comment on above: Performed By: #### C BCMAN ####[facility] Hotnqzwtfl9920 [place] [address]Dr. Yilan Rogel BAND % 0 % Normal 0-5 [facility] Comment on above: Performed By: #### C BCBRICE ####[facility] Obazbzomvm8036[address] [place], [place] [address]Dr. Yilan Rogel BASOM # 0.00 103/ul Normal 0.00-0.10 [facility] Comment on above: Performed By: #### C CAIN ####[facility] Lfmbjddtvc8130[address] [place], [place] [address]Dr. Shahbaz Rogel BASOM % 0.0 % Critically low 0.2-2.0 [facility] Comment on above: Performed By: #### C CAIN ####[facility] Hahdpphwkg313[address] [place], [place] [address]Dr. Yilan Rogel BLAST # Normal [facility] Comment on above: Performed By: #### C CAIN ####[facility] Uzwekrzlng7[address] [place], [place] [address]Dr. Lilalan Rogel BLAST % Normal [facility] Comment on above: Performed By: #### C CAIN ####[facility] Nsvwwfzhnj475[address] [place], [place] [address]Dr. Shahbaz Rogel CORRECTED WBC Normal 4.0-11.0 [facility] Comment on above: Performed By: #### C BCBRICE ####[facility] Kyrngxvltl5391 [place] [address]Dr. Shahbaz Rogel EOS # 0.02 103/ul Normal 0.00-0.70 [facility] Comment on above: Performed By: #### C BCBRICE ####[facility] Oklhfjouak2775[address] [place], [place] [address]Dr. Yijarrod Rogel EOS% 1.0 % Normal 0.9-7.0 [facility] Comment on above: Performed By: #### C BCBRICE ####[facility] Tdfkihxpui0383 [place] [address]Dr. Shahbaz Rogel HCT 37.5 % Normal 36.0-48.0 [facility] Comment on above: Performed By: #### C CAIN ####[facility] Wnhvpjyogc8035 [place] [address]Dr. Shahbaz Rogel HGB 12.0 g/dl Normal 12.0-16.0 [facility] Comment on above: Performed By: #### C CAIN ####[facility] Iqlcbpcfvm9637 [place] [address]Dr. Shahbaz Rogel LYMPHM # 0.21 103/ul Critically low 1.20-3.80 [facility] Comment on above: Performed By: #### C CAIN ####[facility] Umswqwtzvu9389 [place] [address]Dr. Shahbaz Rogel LYMPHM% 13.0 % Critically low 20.5-60.0 [facility] Comment on above: Performed By: #### C CAIN ####[facility] Mwaynpdees5600 [place] [address]Dr. Shahbaz Rogel MCH 27.8 pg Normal 26.7-34.0 [facility] Comment on above: Performed By: #### C CAIN ####[facility] Ylbftymwep6577 [place] [address]Dr. Shahbaz Rogel MCHC 32.0 g/dl Normal 29.9-35.2 [facility] Comment on above: Performed By: #### C CAIN ####[facility] Ohxlxreeud0076 [place] [address]Dr. Shahbaz Rogel MCV 86.8 fL Normal 81.0-99.0 [facility] Comment on above: Performed By: #### C CAIN ####[facility] Bsemxomcts[address] [place], [place] [address]Dr. Shahbaz Rogel METAMYELOCYTE # Normal [facility] Comment on above: Performed By: #### C CAIN ####[facility] Aoustovqua9877 [place] [address]Dr. Shahbaz Rogel METAMYELOCYTE % Normal [facility] Comment on above: Performed By: #### C CAIN ####[facility] Fqhvsxuicd6978 [place], [place] [address]Tt. Shahbaz Rogel MONOM# 0.02 103/ul Critically low 0.30-0.80 [facility] Comment on above: Performed By: #### C CAIN ####[facility] Qoppvbdjgv5761 [place], [place] [address]Il. Shahbaz Rogel MONOM% 1.0 % Critically low 1.7-12.0 [facility] Comment on above: Performed By: #### C CAIN ####[facility] Zukaidfumq7681 [place] [address]Dr. Shahbaz Rogel MPV 9.5 fL Normal 9.5-13.5 [facility] Comment on above: Performed By: #### Cheir BARLOW ####[facility] Sawcqabpac3684 [place] [address]Dr. Shahbaz Rogel MYELOCYTE # Normal [facility] Comment on above: Performed By: #### Cheri BARLOW ####[facility] Ioctriqfhx1718 [place] [address]Dr. Shahbaz Rogel MYELOCYTE % Normal [facility] Comment on above: Performed By: #### Cheri BARLOW ####[facility] Wlxtcupjrm7851 [place] [address]Dr. Shahbaz Rogel NRBC Normal [facility] Comment on above: Performed By: #### Cheri BARLOW ####[facility] Vbjdtjzoyf9229 [place] [address]Dr. Shahbaz Rogel PLT 173 103/ul Normal 150-450 [facility] Comment on above: Performed By: #### C CAIN ####[facility] Svuyzbxzlr9995 [place] [address]Dr. Shahbaz Rogel RBC 4.32 106/ul Normal 4.20-5.40 [facility] Comment on above: Performed By: #### C CAIN ####[facility] Vwrwarvfca2293 [place] [address]Dr. Shahbaz Rogel RDW 13.1 % Normal 11.0-15.0 [facility] Comment on above: Performed By: #### C CAIN ####[facility] Yxzbcqpnzl0313 [place] [address]Dr. Shahbaz Rogel SEG # 1.36 103/ul Critically low 1.40-6.50 [facility] [place] [facility] Comment on above: Performed By: #### C CAIN ####[facility] Usjvanfcju6160 [place] [address]Dr. Shahbaz Juan F SEG % 85.0 % Critically high 43.0-75.0 [facility] [place] [facility] Comment on above: Performed By: #### C ACIN ####[facility] Fsezwtghje3410 [place] [address]Dr. Shahbaz Rogel WBC 1.6 103/ul Critically low 4.0-11.0 [facility] Comment on above: Performed By: #### C CAIN ####[facility] Xtjkugymmw799[address] [place], [place] [address]Dr. Shahbaz Rogel CT CHEST WO CONon 3 CT CHEST WO CON Normal [facility] ER URINE PROFILEon 3 Bilirubin Ql (U) Negative Normal NEGATIVE [facility] Comment on above: Performed By: #### E RUR ####[facility] Ivmislpbcx48[address] [place], [place] [address]Dr. Shahbaz Rogel Clarity (U) CLEAR Normal CLEAR [facility] Comment on above: Performed By: #### E RUR ####[facility] Lnhologtfw627[address] [place], [place] [address]Dr. Shhabaz Rogel Color (U) LT. YELLOW Normal YELLOW [facility] Comment on above: Performed By: #### E RUR ####[facility] [address]ljnohiuml[address] [place], [place] [address]Dr. Shahbaz Rogel ERUAHD A micrscopic examina tion will be performed if indicated. Normal [facility] Comment on above: Performed By: #### E RUR ####[facility] Xitgqtixsv313[address] [place], [place] [address]Dr. Shahbaz Rogel Glucose Ql (U) Negative Normal NEGATIVE [facility] Comment on above: Performed By: #### E RUR ####[facility] Nijsmcjryu83[address] [place], [place] [address]Dr. Shahbaz Rogel Hemoglobin Ql (U) Negative Normal NEGATIVE [facility] Comment on above: Performed By: #### E RUR ####[facility] Mymrnwowxt957[address] [place], [place] [address]Dr. Shahbaz Rogel Ketones Ql (U) Negative Normal NEGATIVE [facility] Comment on above: Performed By: #### E RUR ####[facility] Rhtgkbxsga3250[address] [place], [place] [address]Dr. Shahbaz Rogel LEUKOCYTES Negative Normal NEGATIVE [facility] Comment on above: Performed By: #### E RUR ####[facility] Pqgijqzbhm8838[address] [place], [place] [address]Dr. Shahbaz Rogel Nitrite Ql (U) Negative Normal NEGATIVE [facility] Comment on above: Performed By: #### E RUR ####[facility] Iqcwzmfxem0317[address] [place], [place] [address]Dr. Shahbaz Rogel pH (U) 6.0 [pH] Normal 5-9 [facility] Comment on above: Performed By: #### E RUR ####[facility] Xtewtszjch5[address] [place], [place] [address]Dr. Shahbaz Rogel SPEC GRAVITY <=1.005 Abnormal 1.005-<=1. 025 [facility] [place] [facility] Comment on above: Performed By: #### E RUR ####[facility] Pqsisbwhup507[address] [place], [place] [address]Dr. Shahbaz Juan F UA PROTEIN Negative Normal NEGATIVE/ TRACE [facility] Comment on above: Performed By: #### E RUR ####[facility] Algzjkrdgr565[address] [place], [place] [address]Dr. Lilajarrod Rogel UR MICRO IND NOT INDICATED Normal [facility] Comment on above: Performed By: #### E RUR ####[facility] Zkbioavfja7645[address] [place], [place] [address]Dr. Shahbaz Juan F Urobilinogen Qn (U) 0.2 {Melida'U}/dL Normal 0.2 - 1. 0 [facility] [place] [facility] Comment on above: Performed By: #### E RUR ####[facility] Usdlkemkdq735[address] [place], [place] [address]Dr. Shahbaz Rogel LACTATE/LACTIC ACIDon 2022 Lactate [Moles/Vol] 1.5 mmol/L Normal 0.4-2.0 [facility] [place] [facility] Comment on above: Performed By: #### L ACT ####[facility] Hawzlwpxpj4939[address] [place], [place] [address]Dr. Shahbaz Rogel PROF CHEM 8 (BAS METB)on Anion gap [Moles/Vol] 11.6 mmol/L Normal [facility] Comment on above: Performed By: #### B MP ####[facility] Velbowvucp564[address] [place], [place] [address]Dr. Shahbaz Rogel Calcium [Mass/Vol] 8.1 mg/dL Critically low 8.5-10.1 [facility] Comment on above: Performed By: #### B MP ####[facility] Ojdkfquzip9549[address] [place], [place] [address]Dr. Shahbaz Rogel Chloride [Moles/Vol] 109 mmol/L Critically high 98-107 [facility] [place] [facility] Comment on above: Performed By: #### B MP ####[facility] Klauqxqbai1844[address] [place], [place] [address]Dr. Shahbaz Rogel CO2 [Moles/Vol] 25.2 mmol/L Normal 21.0-32.0 [facility] [place] [facility] Comment on above: Performed By: #### B MP ####[facility] Mdnwcwibzb1330[address] [place], [place] [address]Dr. Shahbaz Rogel Creatinine [Mass/Vol] 0.89 mg/dL Normal 0.55-1.02 [facility] [place] [facility] Comment on above: Performed By: #### B MP ####[facility] Kbepgejkeu8912[address] [place], [place] [address]Dr. Shahbaz Rogel EGFR-AF HAITIAN >60 Normal >=60 [facility] [place] [facility] Comment on above: Performed By: #### B MP ####[facility] Zejachzolh2424[address] [place], [place] [address]Dr. Shahbaz Rogel EGFR-NON AF HAITIAN >60 Normal >=60 [facility] [place] [facility] Comment on above: Performed By: #### B MP ####[facility] [address] [place] [address]Dr. Shahbaz Rogel Glucose [Mass/Vol] 167 mg/dL Critically high 74-106 [facility] Comment on above: Performed By: #### B MP ####[facility] Botnggxtdl9657 [place] [address]Dr. Shahbaz Rogel Potassium [Moles/Vol] 3.8 mmol/L Normal 3.5-5.1 [facility] [place] [facility] Comment on above: Performed By: #### B MP ####[facility] Pdkqnpfqdg7927 [place] [address]Dr. Shahbaz Rogel Sodium [Moles/Vol] 142 mmol/L Normal 136-145 [facility] [place] [facility] Comment on above: Performed By: #### B MP ####[facility] Uwmgqpybtl675[address] [place], [place] [address]Dr. Shahbaz Rogel Urea nitrogen [Mass/Vol] 9.0 mg/dL Normal 7.0-18.0 [facility] [place] [facility] Comment on above: Performed By: #### B MP ####[facility] Kqypolmjwc556[address] [place], [place] [address]Dr. Shahbaz Rogel Urea nitrogen/Creatinine [Mass ratio] 10.1 mg/mg Normal [facility] [place] [facility] Comment on above: Performed By: #### B MP ####[facility] Jvnhbsspxx340[address] [place], [place] [address]Dr. Shahbaz Rogel CARDIAC ROSALINA ADMITon 023 CK [Catalytic activity/Vol] 173 U/L Normal 26-192 [facility] [place] [facility] Comment on above: Performed By: #### C MADM, BMP ####[facility] Dhkhdbwxhf4271 [place] [address]Dr. Shahbaz Rogel CK.MB [Mass/Vol] 0.55 ng/mL Normal <=3.60 [facility] [place] [facility] Comment on above: Performed By: #### C MADM, BMP ####[facility] Ufnsuauxop1580[address] [place], [place] [address]Dr. Shahbaz Rogel HSTROP 5.9 pg/mL Normal 4.0-51.3 [facility] Comment on above: Result Comment: CUT- OFF POINTS HAVE BEEN ESTABLISHED BASED ON THE FOURTH UNIVERSAL DEFINITIONS OF MYOCARDIALINFARCTION. THE UPPER REFERENCE LIMIT (URL) OF TROPONIN, DEFINED THE 99TH PERCENTILE OFcTnI DISTRIBUTION IN A REFERENCE POPULATION, HAS BEEN CONFIRMED THE DECISION THRESHOLDFOR W[place] DIAGNOSIS. Performed By: #### C EMILIO FALCON ####[facility] Cojwcoaaqn95[address] [place] [address]Dr. Shahbaz Rogel LEN 76 ng/mL Normal 9-82 [facility] Comment on above: Performed By: #### Cheri FALCON BMP ####[facility] Dscahgdfuy69028[address] [place], [place] [address]Dr. Shahbaz Rogel CBC W MANUAL DIFFon 01-03-20 23 ATYPICAL LYMPH # Normal [facility] Comment on above: Performed By: #### Cheri BARLOW ####[facility] Wstejifipq0824[address] [place], [place] [address]Dr. Shahbaz Rogel ATYPICAL LYMPH % Normal [facility] Comment on above: Performed By: #### Cheri BARLOW ####[facility] Hlwjtwjzqz258[address] [place], [place] [address]Dr. Shahbaz Rogel BAND # Normal 0.0-0.3 [facility] Comment on above: Performed By: #### Cheri BARLOW ####[facility] Gnbmalmjyx7897[address] [place], [place] [address]Dr. Shahbaz Rogel BAND % Normal 0-5 [facility] Comment on above: Performed By: #### Cheri BARLOW ####[facility] Ianlmbqpdn766189 [address] [place], [place] [address]Dr. Shahbaz Rogel BASOM # 0.00 103/ul Normal 0.00-0.10 [facility] Comment on above: Performed By: #### C CAIN ####[facility] Nchymbpusn898[address] [place], [place] [address]Dr. Shahbaz Rogel BASOM % 0.0 % Critically low 0.2-2.0 [facility] Comment on above: Performed By: #### Cheri BARLOW ####[facility] Ufejdxqkcq5018 [place] [id number]. Shahbaz Rogel BLAST # Normal [facility] Comment on above: Performed By: #### C CAIN ####[facility] Ijowwchhic6077 [place] [address]Dr. Shahbaz Rogel BLAST % Normal [facility] Comment on above: Performed By: #### C CAIN ####[facility] Fndpovsyrc6465 [place] [address]Dr. Shahbaz Rogel CORRECTED WBC Normal 4.0-11.0 [facility] [place] [facility] Comment on above: Performed By: #### C CAIN ####[facility] Jsrqrztavr9664[address] [place], [place] [address]Dr. Shahbaz Rogel EOS # 0.03 103/ul Normal 0.00-0.70 [facility] [place] [facility] Comment on above: Performed By: #### C CAIN ####[facility] Usawdycthj257[address] [place], [place] [address]Dr. Shahbaz Rogel EOS% 1.0 % Normal 0.9-7.0 [facility] [place] [facility] Comment on above: Performed By: #### C CAIN ####[facility] Hlnjvidrmj444[address] [place], [place] [address]Dr. Shahbaz Rogel HCT 42.8 % Normal 36.0-48.0 [facility] [place] [facility] Comment on above: Performed By: #### C CAIN ####[facility] Tqmmeysiak414[address] [place], [place] [address]Dr. Shahbaz Rogel HGB 14.1 g/dl Normal 12.0-16.0 [facility] Comment on above: Performed By: #### C CAIN ####[facility] Aozydcizqh9928[address] [place], [place] [address]Dr. Shahbaz Rogel LYMPHM # 0.64 103/ul Critically low 1.20-3.80 [facility] Comment on above: Performed By: #### C CAIN ####[facility] Tjrogepmgy9625 [place] [address]Dr. Shahbaz Rogel LYMPHM% 23.0 % Normal 20.5-60.0 [facility] Comment on above: Performed By: #### C CAIN ####[facility] Nmnmeswynq1295 [place], [place] [address]Aa. Shahbaz Rogel MCH 28.0 pg Normal 26.7-34.0 [facility] Comment on above: Performed By: #### C CAIN ####[facility] Kzsszkugyn7983 [place], [place] [address]Uy. Shahbaz Rogel MCHC 32.9 g/dl Normal 29.9-35.2 [facility] Comment on above: Performed By: #### C CAIN ####[facility] Iuthqcvvyu6928 [place] [address]Dr. Shahbaz Rogel MCV 84.9 fL Normal 81.0-99.0 [facility] Comment on above: Performed By: #### C CAIN ####[facility] Cmnrzxkwss2568 [place] [address]Dr. Shahbaz Rogel METAMYELOCYTE # Normal [facility] Comment on above: Performed By: #### C CAIN ####[facility] Fpnrzkdwlq9436 [place] [address]Dr. Shahbaz Rogel METAMYELOCYTE % Normal [facility] Comment on above: Performed By: #### C CAIN ####[facility] Vuumgsrnpo[address] [place], [place] [address]Dr. Shahbaz Rogel MONOM# 0.31 103/ul Normal 0.30-0.80 [facility] Comment on above: Performed By: #### C CAIN ####[facility] Iuiuxrmufr3205 [place] [address]Dr. Shahbaz Rogel MONOM% 11.0 % Normal 1.7-12.0 [facility] Comment on above: Performed By: #### C CAIN ####[facility] Nctkbzflwj1574 [place] [address]Dr. Shahbaz Rogel MPV 9.5 fL Normal 9.5-13.5 [facility] Comment on above: Performed By: #### C CAIN ####[facility] Vbzptruquw[address] [place], [place] [address]Dr. Shahbaz Rogel MYELOCYTE # Normal [facility] Comment on above: Performed By: #### C CAIN ####[facility] Xufvgohubw9154 [place], [place] [address]Sk. Shahbaz Rogel MYELOCYTE % Normal [facility] Comment on above: Performed By: #### C CAIN ####[facility] Sghlzhrhyg8266 [place], [place] [address]Ym. Shahbaz Rogel NRBC Normal [facility] Comment on above: Performed By: #### C CAIN ####[facility] Jmajjzdbpz5032 [place] [address]Dr. Shahbaz Rogel PLT 197 103/ul Normal 150-450 [facility] [place] [facility] Comment on above: Performed By: #### C CAIN ####[facility] Pvwmeffbob2279 [place] [address]Dr. Shahbaz Rogel RBC 5.04 106/ul Normal 4.20-5.40 [facility] [place] [facility] Comment on above: Performed By: #### Cheri BARLOW ####[facility] Nmexlzydxo6006 [place] [address]Dr. Shahbaz Rogel RDW 13.2 % Normal 11.0-15.0 [facility] [place] [facility] Comment on above: Performed By: #### Cheri BARLOW ####[facility] Xeyvhuxjxo1169 [place] [address]Dr. Shahbaz Rogel SEG # 1.82 103/ul Normal 1.40-6.50 [facility] [place] [facility] Comment on above: Performed By: #### Cheri BARLOW ####[facility] Alaegdgmdn5876 [place] [address]Dr. Shahbaz Rgoel SEG % 65.0 % Normal 43.0-75.0 [facility] [place] [facility] Comment on above: Performed By: #### C CAIN ####[facility] Ujjmbdzsbp0393 [place] [address]Dr. Shahbaz Rogel WBC 2.8 103/ul Critically low 4.0-11.0 [facility] [place] [facility] Comment on above: Performed By: #### C CAIN ####[facility] Xosifbqpmf6201 [place] [id number]. Shahbaz Rogel Covid-19 PCR (CVDTB)on SARS-CoV-2 (COVID-19) RNA PAVAN+probe Ql (Unsp spec) Not detected Normal NOT DETECTED [facility] Comment on above: Result Comment: When diagnostic [...] for this test is supported by the Sign [employer] Supervisor of Health and Human Service's declaration that [...] be used). Performed By: #### C VDTBH ####[facility] Fajlqhlvba[address] [place], [place] [address]Dr. Shahbaz Rogel D-DIMERon 01-02-2023 D-DIMER 0.38 mg/L FEU Normal <=0.59 [facility] Comment on above: Performed By: #### D DIM ####[facility] Gtksnjulbs[address] [place], [place] [address]Dr. Shahbaz Rogel D-DIMER COMMENTS SEE BELOW Normal [facility] Comment on above: Result Comment: [...] generalized hospitalization. Performed By: #### D DIM ####[facility] Geekrsrbuo[address] [place], [place] [address]Dr. Shahbaz Rogel LACTATE/LACTIC ACIDon 2022 Lactate [Moles/Vol] 2.1 mmol/L Critically high 0.4-2.0 [facility] [place] [facility] Comment on above: Performed By: #### L ACT ####[facility] Mnhhxacnmn8816 [place] [address]Dr. Shahbaz Rogel PROF CHEM 8 (BAS METB)on Anion gap [Moles/Vol] 14.3 mmol/L Normal [facility] Comment on above: Performed By: #### C EZEKIEL, BMP ####[facility] Zneldxbofg7894 [place] [address]Dr. Shahbaz Rogel Calcium [Mass/Vol] 9.0 mg/dL Normal 8.5-10.1 [facility] [place] [facility] Comment on above: Performed By: #### C EZEKIEL, BMP ####[facility] Zaasnojdlw[address]99[address] [place], [place] [address]Dr. Shahbaz Rogel Chloride [Moles/Vol] 102 mmol/L Normal 98-107 [facility] Comment on above: Performed By: #### C EZEKIEL, BMP ####[facility] Pufphrpipv2638 [place] [address]Dr. Shahbaz Rogel CO2 [Moles/Vol] 25.5 mmol/L Normal 21.0-32.0 [facility] [place] [facility] Comment on above: Performed By: #### C EZEKIEL, BMP ####[facility] Nteazlwern8970[address] [place], [place] [address]Dr. Shahbaz Rogel Creatinine [Mass/Vol] 1.01 mg/dL Normal 0.55-1.02 [facility] Comment on above: Performed By: #### C EZEKIEL, BMP ####[facility] Ffzpgdhlsm1345 [place] [address]Dr. Shahbaz Rogel EGFR-AF HAITIAN >60 Normal >=60 [facility] Comment on above: Performed By: #### C EZEKIEL, BMP ####[facility] Pmaiwanzif6696 [place] [address]Dr. Shahbaz Rogel EGFR-NON AF HAITIAN 56 mL/min/1.73m2 Critically low >=60 [facility] Comment on above: Performed By: #### C MADM, BMP ####[facility] Zdozmubpyh3880 [place] [address]Dr. Shahbaz Rogel Glucose [Mass/Vol] 105 mg/dL Normal 74-106 [facility] Comment on above: Performed By: #### C MADM, BMP ####[facility] Zpejhkwxgu654[address] [place], [place] [address]Dr. Shahbaz Rogel Potassium [Moles/Vol] 3.8 mmol/L Normal 3.5-5.1 [facility] Comment on above: Performed By: #### C MADM, BMP ####[facility] Syrdiuikcx[address] [place], [place] [address]Dr. Shahbaz Rogel Sodium [Moles/Vol] 138 mmol/L Normal 136-145 [facility] Comment on above: Performed By: #### C MADM, BMP ####[facility] Iogekszwwv097[address] [place], [place] [address]Dr. Shahbaz Rogel Urea nitrogen [Mass/Vol] 9.0 mg/dL Normal 7.0-18.0 [facility] Comment on above: Performed By: #### C EZEKIEL, BMP ####[facility] Ldkeluzeci8317[address] [place], [place] [address]Dr. Shahbaz Rogel Urea nitrogen/Creatinine [Mass ratio] 8.9 mg/mg Normal [facility] Comment on above: Performed By: #### C MADM, BMP ####[facility] Dlhdkpydyz3947[address] [place], [place] [address]Dr. Shahbaz Rogel XR CHEST 1 Von 01-02-2023 XR CHEST 1 V Normal [facility] INSULINon 11-02-2022 Insulin 6.0 uIU/mL Normal 2.6-24.9 [facility] Comment on above: Performed By: #### I NSULIN ####[facility] Ldpiwsyqoq[address] [place], [place] [address]Dr. Shahbaz Rogel CBC AUTO DIFFon 11-01-2022 BASO # 0.0 103/ul Normal 0.0-0.1 [facility] Comment on above: Performed By: #### C BC ####[facility] Vgxiniewbo7340 [place] [address]Dr. Shahbaz Rogel Basophils/100 WBC (Bld) 0.5 % Normal 0.2-2.0 [facility] Comment on above: Performed By: #### C BC ####[facility] Nuffqxpjkd7566 [place] [address]Dr. Shahbaz Rogel EO # 0.2 103/ul Normal 0.0-0.7 [facility] Comment on above: Performed By: #### C BC ####[facility] Jftugicecv[address] [place], [place] [address]Dr. Shahbaz Rogel Eosinophils/100 WBC (Bld) 5.2 % Normal 0.9-7.0 [facility] Comment on above: Performed By: #### C BC ####[facility] Bzqhayiker423[address] [place], [place] [address]Dr. Shahbaz Rogel Erythrocyte distribution width (RBC) [Ratio] 12.7 % Normal 11.0-15.0 [facility] Comment on above: Performed By: #### C BC ####[facility] Ndkxyukngg6[address] [place], [place] [address]Dr. Shahbaz Rogel Hematocrit (Bld) [Volume fraction] 46.4 % Normal 36.0-48.0 [facility] Comment on above: Performed By: #### C BC ####[facility] Pfuurcawrg5621 [place] [address]Dr. Shahbaz Rogel Hemoglobin (Bld) [Mass/Vol] 14.9 g/dL Normal 12.0-16.0 [facility] Comment on above: Performed By: #### C BC ####[facility] Eknbrgqlwe13[address] [place], [place] [address]Dr. Shahbaz Rogel IG # 0.00 10e3/ul Normal 0.00-0.03 [facility] Comment on above: Performed By: #### C BC ####[facility] Vsovgcjzvt[address] [place], [place] [address]Dr. Shahbaz Rogel IG % 0.0 % Normal 0.0-0.5 [facility] Comment on above: Performed By: #### C BC ####[facility] Csycbqfsdo9603 [place] [address]Dr. Shahbaz Juan F LYMPH # 1.1 103/ul Critically low 1.2-3.8 [facility] Comment on above: Performed By: #### C BC ####[facility] Laiihxikzj2074 [place] [address]Dr. Shahbaz Juan F Lymphocytes/100 WBC (Bld) 25.5 % Normal 20.5-60.0 [facility] Comment on above: Performed By: #### C BC ####[facility] Fygqizcxzq1655 [place] [address]Dr. Lilajarrod Rogel MANUAL DIFF REQ NO Normal [facility] Comment on above: Performed By: #### C BC ####[facility] Mcayqdbjyd1659 [place] [address]Dr. Shahbaz Juan F MCH (RBC) [Entitic mass] 27.8 pg Normal 26.7-34.0 [facility] Comment on above: Performed By: #### C BC ####[facility] Tdtkzsujoh2158 [place] [address]Dr. Shahbaz Rogel MCHC (RBC) [Mass/Vol] 32.1 g/dL Normal 29.9-35.2 [facility] Comment on above: Performed By: #### C BC ####[facility] Airfveheqc1518 [place] [address]Dr. Shahbaz Rogel MCV (RBC) [Entitic vol] 86.6 fL Normal 81.0-99.0 [facility] Comment on above: Performed By: #### C BC ####[facility] Vavgzprqaq7174 [place] [address]Dr. Lilajarrod Juan F MONO # 0.2 103/ul Critically low 0.3-0.8 [facility] Comment on above: Performed By: #### C BC ####[facility] Dcffitbrbg2092 [place] [address]Dr. Lilajarrod Rogel Monocytes/100 WBC (Bld) 5.4 % Normal 1.7-12.0 [facility] Comment on above: Performed By: #### C BC ####[facility] Ohvhgiixnu3045 [place] [address]Dr. Shahbaz Rogel NEUT # 2.7 103/ul Normal 1.4-6.5 [facility] Comment on above: Performed By: #### C BC ####[facility] Jcuewdgtiy4259 [place] [address]Dr. Shahbaz Rogel Neutrophils/100 WBC (Bld) 63.4 % Normal 43.0-75.0 [facility] Comment on above: Performed By: #### C BC ####[facility] Lajtyctcrn9171 [place] [address]Dr. Shahbaz Rogel Platelet mean volume (Bld) [Entitic vol] 9.4 fL Critically low 9.5-13.5 [facility] Comment on above: Performed By: #### C BC ####[facility] Ocbxfuebtz8149 [place] [address]Dr. Shahbaz Rogel PLT 216 103/ul Normal 150-450 [facility] Comment on above: Performed By: #### C BC ####[facility] Ccmpuhvzba3600 [place] [address]Dr. Shahbaz Rogel RBC 5.36 106/ul Normal 4.20-5.40 [facility] Comment on above: Performed By: #### C BC ####[facility] Udkuwfssbg1869 [place] [address]Dr. Shahbaz Rogel WBC 4.2 103/ul Normal 4.0-11.0 [facility] Comment on above: Performed By: #### C BC ####[facility] Nwvufrhcdb8580 [place] [address]Dr. Shahbaz Rogel FREE THYROXINE INDEX T7on FTI 2.92 Normal 1.30-4.50 [facility] Comment on above: Performed By: #### C MP, LIPID, T7, TSH ####[facility] Bkozwsitxq0875 [place] [address]Dr. Shahbaz Rogel T3U 37.0 % Normal 30.0-39.0 [facility] Comment on above: Performed By: #### C MP, LIPID, T7, TSH ####[facility] Rhqeqtnvwn8125 [place] [address]Dr. Shahbaz Rogel T4 [Mass/Vol] 7.90 ug/dL Normal 4.80-13.90 [facility] Comment on above: Performed By: #### C MP, LIPID, T7, TSH ####[facility] Yjlueyirwh9983 [place] [address]Dr. Shahbaz Rogel GLYCOHEMOGLOBIN A1Con 2022 ADA RECOMMENDATION SEE BELOW Normal [facility] Comment on above: Result Comment: ADA RECOMMENDED LIMIT 4.0 - 6.0 ADA THERAPEUTIC TARGET < 7.0 ACTION SUGGESTED > 7.0 Performed By: #### A 1C ####[facility] Oidlajqfer[address] [place], [place] [address]Dr. Shahbaz Rogel Glucose [Mass/Vol] 120 mg/dL Normal [facility] Comment on above: Performed By: #### A 1C ####[facility] [address] [place], [place] [address]Dr. Shahbaz Rogel HbA1c (Bld) [Mass fraction] 5.8 % Normal 4.5-6.2 [facility] Comment on above: Performed By: #### A 1C ####[facility] [address] [place], [place] [address]Dr. Shahbaz Rogel IRONon 11-01-2022 Iron [Mass/Vol] 54.0 ug/dL Normal 50.0-170.0 [facility] Comment on above: Performed By: #### I GRIS ####[facility] [address] [place], [place] [address]Dr. Shahbaz Rogel LIPID PROFILEon 11-01-2022 CHOL-HDL RATIO NORM SEE BELOW Normal [facility] Comment on above: Result Comment: 3.3 - 4.4 LOW RISK 4.4 - 7.1 AVERAGE RISK 7.1 - 11.0 MODERATE RISK >11.0 HIGH RISK Performed By: #### C MP, LIPID, T7, TSH ####[facility] [address] [place], [place] [address]Dr. Shahbaz Rogel Cholesterol [Mass/Vol] 203 mg/dL Critically high <=200 [facility] Comment on above: Performed By: #### C MP, LIPID, T7, TSH ####[facility] [address] [place] [id number]. Shahbaz Juan F Cholesterol in HDL [Mass/Vol] 42 mg/dL Normal 40-60 [facility] [place] [facility] Comment on above: Performed By: #### C MP, LIPID, T7, TSH ####[facility] [address] [place] [id number]. Lilajarrod Juan F Cholesterol in LDL [Mass/Vol] 121.4 mg/dL Normal [facility] [place] [facility] Comment on above: Performed By: #### C MP, LIPID, T7, TSH ####[facility] [address] [place] [id number]. Shahbaz Rogel Cholesterol.total/Chol esterol in HDL [Mass ratio] 4.8 {ratio} Normal [facility] [place] [facility] Comment on above: Performed By: #### C MP, LIPID, T7, TSH ####[facility] [address] [place] [id number]. Lilajarrod Juan F HDL NORMAL > or = 60 mg/dl - LO W CARDIOVASCULAR RISK <40 mg/dl - HIGH CARDIOVASCULAR RISK Normal [facility] [place] [facility] Comment on above: Performed By: #### C MP, LIPID, T7, TSH ####[facility] [address] [place] [id number]. Shahbaz Rogel LDL CALC NORMAL SEE BELOW Normal [facility] Comment on above: Result Comment: <100 mg/dl OPTIMAL 100 - 129 mg/dl NEAR OR ABOVE OPTIMAL 130 - 159 mg/dl BORDERLINE HIGH 160 - 189 mg/dl HIGH >190 mg/dl VERY HIGH Performed By: #### C MP, LIPID, T7, TSH ####[facility] [address] [place] [id number]. Shahbaz Rogel Triglyceride [Mass/Vol] 198 mg/dL Critically high <=150 [facility] Comment on above: Performed By: #### C MP, LIPID, T7, TSH ####[facility] [address] [place] [id number]. Shahbaz Rogel VLDL CALC 39.6 mg/dL Normal [facility] Comment on above: Performed By: #### C MP, LIPID, T7, TSH ####[facility] [address] [place] [address]Dr. Shahbaz Rogel PROF 14(COMP METB)on 023 Albumin [Mass/Vol] 4.1 g/dL Normal 3.4-5.0 [facility] [place] [facility] Comment on above: Performed By: #### C MP, LIPID, T7, TSH ####[facility] [address] [place] [address]Dr. Shahbaz Rogel Albumin/Globulin [Mass ratio] 1.0 {ratio} Normal [facility] [place] [facility] Comment on above: Performed By: #### C MP, LIPID, T7, TSH ####[facility] [address] [place] [address]Dr. Shahbaz Rogel ALP [Catalytic activity/Vol] 126 U/L Critically high 46-116 [facility] [place] [facility] Comment on above: Performed By: #### C MP, LIPID, T7, TSH ####[facility] [address] [place] [address]Dr. Shahbaz Rogel ALT [Catalytic activity/Vol] 30 U/L Normal 14-59 [facility] [place] [facility] Comment on above: Performed By: #### C MP, LIPID, T7, TSH ####[facility] [address]wx[address] [place] [address]Dr. Shahbaz Rogel Anion gap [Moles/Vol] 12.3 mmol/L Normal [facility] Comment on above: Performed By: #### C MP, LIPID, T7, TSH ####[facility] [address] [place] [address]Dr. Shahbaz Rogel AST [Catalytic activity/Vol] 25 U/L Normal 15-37 [facility] [place] [facility] Comment on above: Performed By: #### C MP, LIPID, T7, TSH ####[facility] [address] [place] [address]Dr. Shahbaz Rogel Bilirubin [Mass/Vol] 0.5 mg/dL Normal 0.2-1.0 [facility] [place] [facility] Comment on above: Performed By: #### C MP, LIPID, T7, TSH ####[facility] [address]esw[address] [place] [id number]. Shahbaz oRgel Calcium [Mass/Vol] 9.4 mg/dL Normal 8.5-10.1 [facility] Comment on above: Performed By: #### C MP, LIPID, T7, TSH ####[facility] [address] [place] [id number]. Shahbaz Rogel Chloride [Moles/Vol] 104 mmol/L Normal 98-107 [facility] Comment on above: Performed By: #### C MP, LIPID, T7, TSH ####[facility] [address] [place] [address]Dr. Shahbaz Rogel CO2 [Moles/Vol] 29.6 mmol/L Normal 21.0-32.0 [facility] Comment on above: Performed By: #### C MP, LIPID, T7, TSH ####[facility] [address] [place] [address]Dr. Shahbaz Rogel Creatinine [Mass/Vol] 0.91 mg/dL Normal 0.55-1.02 [facility] Comment on above: Performed By: #### C MP, LIPID, T7, TSH ####[facility] [address] [place] [address]Dr. Shahbaz Rogel EGFR-AF HAITIAN >60 Normal >=60 [facility] Comment on above: Performed By: #### C MP, LIPID, T7, TSH ####[facility] [address] [place] [address]Dr. Shahbaz Rogel EGFR-NON AF HAITIAN >60 Normal >=60 [facility] Comment on above: Performed By: #### C MP, LIPID, T7, TSH ####[facility] [address] [place] [id number]. Shahbaz Rogel Globulin (S) [Mass/Vol] 4.0 g/dL Normal [facility] Comment on above: Performed By: #### C MP, LIPID, T7, TSH ####[facility] [address] [place] [address]Dr. Shahbaz Rogel Glucose [Mass/Vol] 85 mg/dL Normal 74-106 [facility] Comment on above: Performed By: #### C MP, LIPID, T7, TSH ####[facility] [address] [place] [address]Dr. Shahbaz Rogel Potassium [Moles/Vol] 3.9 mmol/L Normal 3.5-5.1 [facility] Comment on above: Performed By: #### C MP, LIPID, T7, TSH ####[facility] [address] [place] [address]Dr. Shahbaz Rogel Protein [Mass/Vol] 8.1 g/dL Normal 6.4-8.2 [facility] Comment on above: Performed By: #### C MP, LIPID, T7, TSH ####[facility] [address] [place] [address]Dr. Shahbaz Rogel Sodium [Moles/Vol] 142 mmol/L Normal 136-145 [facility] Comment on above: Performed By: #### C MP, LIPID, T7, TSH ####[facility] [address] [place] [address]Dr. Shahbaz Rogel Urea nitrogen [Mass/Vol] 9.0 mg/dL Normal 7.0-18.0 [facility] Comment on above: Performed By: #### C MP, LIPID, T7, TSH ####[facility] [address] [place] [address]Dr. Shahbaz Rogel Urea nitrogen/Creatinine [Mass ratio] 9.9 mg/mg Normal [facility] Comment on above: Performed By: #### C MP, LIPID, T7, TSH ####[facility] [address] [place] [address]Dr. Shahbaz Rogel TSHon 11-01-2022 TSH 0.045 uIU/mL Critically low 0.358-3.74 0 [facility] Comment on above: Performed By: #### C MP, LIPID, T7, TSH ####[facility] [address] [place] [address]Dr. Shahbaz Rogel XR HUMERUS LT MIN 2Von 10-01 XR HUMERUS LT MIN 2V Normal [facility] XR LSPINE 2_3 VIEWSon 2021 XR LSPINE 2_3 VIEWS Normal [facility] XR CHEST 1 Von 08-25-2022 XR CHEST 1 V Normal [facility] ACID FAST SMEAR AND CXon Acid Fast Culture Negative Normal [facility] Comment on above: Result Comment: No a ninfa fast bacilli isolated after 6 weeks. Performed By: #### A FB ####[facility] [address] [place], [place] [address]Xh. Shahbaz Rogel Acid Fast Smear Negative Normal [facility] Comment on above: Performed By: #### A FB ####[facility] [address] [place], [place] [address]Zi. Shahbaz Rogel [employer] Specimen Processing Concentration Normal [facility] Comment on above: Performed By: #### A FB ####[facility] [address] [place], [place] [address]Tq. Shahbaz Rogel Bacteria identified Anaer cx Nom (Unsp spec)Ordered By: Rodolfo Harley on 08-13-2022 Anaerobic microbial culture No Anaerobes Isolated 3 Days [facility] Basophils Auto (Bld) [#/Vol] Ordered By: Rodolfo Harley on 08-12-2022 Basophils (Bld) [#/Vol] 0.0 10*3/uL 0.0-0.2 [facility] Basophils/100 WBC Auto (Bld) Ordered By: Rodolfo Harley on 08-12-2022 Basophils/100 WBC (Bld) 0.4 % . [facility] Creatinine and Glomerular fi ltration rate.predicted panel (S/P/Bld)Ordered By: Rodolfo Harley on 08-12-2022 Creatinine [Mass/Vol] 0.74 mg/dL 0.44-1.03 [facility] Eosinophils Auto (Bld) [#/Vo l]Ordered By: Rodolfo Harley on 08-12-2022 Eosinophils (Bld) [#/Vol] 0.0 10*3/uL 0.0-0.45 [facility] Eosinophils/100 WBC Auto (Bl d)Ordered By: Rodolfo Harley on 08-12-2022 Eosinophils/100 WBC (Bld) 0.0 % . [facility] Erythrocyte distribution wid th Auto (RBC) [Ratio]Ordered By: Rodolfo Harley on 08-12-2022 Erythrocyte distribution width (RBC) [Ratio] 14.2 % 11.9-15.3 [facility] Estimated glomerular filtrat ion rate (GFR) non- AmericanOrdered By: Rodolfo Harley on 08-12-2022 GFR/1.73 sq M.predicted among non-blacks MDRD (S/P/Bld) [Vol rate/Area] > 60 mL/Min [facility] Hematocrit Auto (Bld) [Volum e fraction]Ordered By: Rodolfo Harley on 08-12-2022 Hematocrit (Bld) [Volume fraction] 38.0 % 34.0-46.4 [facility] Hemoglobin [Mass/volume] in BloodOrdered By: Rodolfo Harley on 08-12-2022 Hemoglobin (Bld) [Mass/Vol] 12.5 g/dL 11.8-15.4 [facility] Laboratory - Hematology and Cell countsOrdered By: Rodolfo Harley on 08-12-2022 Nucleated RBC/100 WBC (Bld) [Ratio] 0.1 % 0-0.5 [facility] Leukocytes [#/volume] in Blo od by Automated countOrdered By: Rodolfo Harley on 08-12-2022 WBC (Bld) [#/Vol] 5.8 10*3/uL 4.5-11.0 [facility] Lymphocytes Auto (Bld) [#/Vo l]Ordered By: Rodolfo Harley on 08-12-2022 Lymphocytes (Bld) [#/Vol] 0.7 10*3/uL 1.00-4.8 [facility] Lymphocytes/100 WBC Auto (Bl d)Ordered By: Rodolfo Harley on 08-12-2022 Lymphocytes/100 WBC (Bld) 11.4 % . [facility] MCH Auto (RBC) [Entitic mass ]Ordered By: Rodolfo Harley on 08-12-2022 MCH (RBC) [Entitic mass] 28.1 pg 24.7-34.3 [facility] MCHC Auto (RBC) [Mass/Vol]Or dered By: Rodolfo Harley on 11-11-2022 MCHC (RBC) [Mass/Vol] 32.9 g/dL 32.0-35.0 [facility] MCV Auto (RBC) [Entitic vol] Ordered By: Rodolfo Harley on 08-12-2022 MCV (RBC) [Entitic vol] 85.4 fL 80-100 [facility] Monocytes Auto (Bld) [#/Vol] Ordered By: Rodolfo Harley on 08-12-2022 Monocytes (Bld) [#/Vol] 0.3 10*3/uL 0.0-0.8 [facility] Monocytes/100 WBC Auto (Bld) Ordered By: Rodolfo Harley on 08-12-2022 Monocytes/100 WBC (Bld) 4.8 % . [facility] Neutrophils Auto (Bld) [#/Vo l]Ordered By: Rodolfo Harley on 08-12-2022 Neutrophils (Bld) [#/Vol] 4.8 10*3/uL 1.8-7.7 [facility] Neutrophils/100 WBC Auto (Bl d)Ordered By: Rodolfo Harley on 08-12-2022 Neutrophils/100 WBC (Bld) 83.4 % . [facility] No Panel InformationOrdered By: Rodolfo Harley on 08-12-2022 Estimated GFR () > 60 mL/Min [facility] Comment on above: GFR estimated refere nce range: According to KDOQI guidelines, <60 ml/min/1.73m2 is sufficient to diagnose a patient with chronic kidney disease. Pharmacy Creatinine Clearance (Chem 59.45 [facility] Platelet mean volume Auto (B ld) [Entitic vol]Ordered By: Rodolfo Harley on 08-12-2022 Platelet mean volume (Bld) [Entitic vol] 7.9 fL 6.3-10.7 [facility] Platelets Auto (Bld) [#/Vol] Ordered By: Rodolfo Harley on 08-12-2022 Platelets (Bld) [#/Vol] 196 10*3/uL 150-450 [facility] RBC Auto (Bld) [#/Vol]Ordere d By: Rodolfo Harley on 08-12-2022 RBC (Bld) [#/Vol] 4.45 10*6/uL 3.60-5.00 [facility] Serum or plasma anion gap de terminationOrdered By: Rodolfo Harley on 08-12-2022 Anion gap [Moles/Vol] 7.5 mmol/L 6.0-15.0 [facility] Serum or plasma calcium dagoberto urement (mass/volume)Ordered By: Rodolfo Harley on 08-12-2022 Calcium [Mass/Vol] 8.7 mg/dL 8.2-10.2 [facility] Serum or plasma chloride anahy surement (moles/volume)Ordered By: Rodolfo Harley on 08-12-2022 Chloride [Moles/Vol] 108 mmol/L 95-114 [facility] Serum or plasma glucose dagoberto urement (mass/volume)Ordered By: Rodolfo Harley on 08-12-2022 Glucose [Mass/Vol] 133 mg/dL 70-100 [facility] Comment on above: ADA recommended refe rence rangeRandom Glucose Reference Range is dependent on time and content of last meal. Glucose of more than 200 mg/dL in a nonstressed, ambulatory subject supports the diagnosis of Diabetes Mellitus. Serum or plasma potassium me asurement (moles/volume)Ordered By: Rodolfo Harley on 08-12-2022 Potassium [Moles/Vol] 3.7 mmol/L 3.5-5.1 [facility] Serum or plasma sodium measu rement (moles/volume)Ordered By: Rodolfo Harley on 08-12-2022 Sodium [Moles/Vol] 139 mmol/L 136-146 [facility] Serum or plasma total carbon dioxide measurement (moles/volume)Ordered By: Rodolfo Harley on 08-12-2022 CO2 [Moles/Vol] 27.2 mmol/L 22.0-30.0 [facility] Serum or plasma urea nitroge n measurement (mass/volume)Ordered By: Rodolfo Harley on 08-12-2022 Urea nitrogen [Mass/Vol] 14 mg/dL 9-23 [facility] ABO and Rh group post transf usion reaction Nom (Bld)Ordered By: Rodolfo Harley on 08-10-2022 Microscopic observation Gram stain Nom (Unsp spec) [facility] AFB cultureOrdered By: Sissy Harley on 08-10-2022 Mycobacterium sp identified Org specific cx Nom (Unsp spec) [facility] AFB smearOrdered By: Rodolfo Harley on 08-10-2022 Microscopic observation Smear Nom (Unsp spec) [facility] Aerobic cultureOrdered By: Margie Harley on 08-10-2022 Bacteria identified Aer cx Nom (Unsp spec) No Growth 2 Days [facility] Anaerobic cultureOrdered By: Rodolfo Harley on 08-10-2022 Bacteria identified Anaer cx Nom (Unsp spec) No Anaerobes Isolated 3 Days [facility] Arterial blood standard base excess determination by calculationOrdered By: Rodolfo Harley on 08-10-2022 Base excess standard Calc (BldA) [Moles/Vol] 5 mmol/L -2-3 [facility] Blood carbon dioxide, total measurement by calculation (moles/volume)Ordered By: Rodolfo Harley on 08-10-2022 CO2 Calc (Bld) [Moles/Vol] 30 mmol/L 23-29 [facility] CT biopsyOrdered By: Rodolfo Harley on 08-10-2022 Hematocrit (Bld) [Volume fraction] 40.0 % 38.0-51.0 [facility] Fungal cultureOrdered By: Rolanda Harley on 08-10-2022 Fungus identified Cx Nom (Unsp spec) [facility] Glucose Glucometer (BldC) [M ass/Vol]Ordered By: Rodolfo Harley on 08-10-2022 Glucose [Mass/Vol] 126 mg/dL 70-105 [facility] Gram stain for investigation of transfusion reactionOrdered By: Rodolfo Harley on 08-10-2022 Microscopic observation Gram stain Nom (Unsp spec) [facility] Hemoglobin Calc (Bld) [Mass/ Vol]Ordered By: Rodolfo Harley on 08-10-2022 Hemoglobin (Bld) [Mass/Vol] 13.6 g/dL 12.0-17.0 [facility] Monocyte %Ordered By: Jean Harley on 08-10-2022 Monocyte % 39.9 mm[Hg] 35-51 [facility] Monocyte % 45 mm[Hg] 80-105 [facility] No Panel InformationOrdered By: Rodolfo Harley on 08-10-2022 Chlamydia psittaci Antibodies <1:10 Neg:<1:10 [facility] Comment on above: This test was develo ped and its performance characteristicsdetermined by [facility]. It has not been cleared or approvedby the Food and Drug Administration. The FDA hasdetermined that such clearance or approval is notnecessary.Performed at: [address] [id number] Director: Shelly Vargas MD, Phone: [phone] Potassium (Bld) [Moles/Vol]O rdered By: Rodolfo Harley on 08-10-2022 Potassium [Moles/Vol] 3.8 mmol/L 3.5-4.9 [facility] Sodium (Bld) [Moles/Vol]Orde red By: Rodolfo Harley on 08-10-2022 Sodium [Moles/Vol] 141 mmol/L 138-146 [facility] Whole blood bicarbonate dagoberto urementOrdered By: Rodolfo Harley on 08-10-2022 HCO3 (Bld) [Moles/Vol] 29.1 mmol/L 22.0-28.0 [facility] Whole blood ionized calcium measurement (moles/volume)Ordered By: Rodolfo Harley on 08-10-2022 Calcium.ionized (Bld) [Moles/Vol] 1280 mmol/L 1.12-1.32 [facility] Whole blood oxygen saturatio n measurementOrdered By: Rodolfo Harley on 08-10-2022 Oxygen saturation in Blood 84 % 95-98 [facility] Comment on above: Reference ranges ref lect baseline specimens only Whole blood pHOrdered By: Rolanda Harley on 08-10-2022 pH (Bld) 7.470 Units 7.31-7.45 [facility] Urine culture routineOrdered By: Rodolfo Harley on 08-07-2022 Bacteria identified Cx Nom (U) 2 Days [facility] Activated partial thrombopla stin time (aPTT) in platelet poor plasma by coagulation aOrdered By: Rodolfo Harley on 08-05-2022 aPTT Coag (PPP) [Time] 35.9 s 25.1-36.5 [facility] Basophils Auto (Bld) [#/Vol] Ordered By: Rodolfo Harley on 08-05-2022 Basophils (Bld) [#/Vol] 0.0 10*3/uL 0.0-0.2 [facility] Basophils/100 WBC Auto (Bld) Ordered By: Rodolfo Harley on 08-05-2022 Basophils/100 WBC (Bld) 0.5 % . [facility] Body fluid albumin measureme nt (mass/volume)Ordered By: Rodolfo Harley on 08-05-2022 Albumin (Body fld) [Mass/Vol] 3.8 g/dL 3.2-5.5 [facility] COVID-19 Positive/NegativeOr dered By: Rodolfo Harley on 08-05-2022 SARS-CoV-2 (COVID-19) N gene PAVAN+probe Ql (Resp) Negative Negative [facility] Comment on above: Testing for SARS-CoV -2 by RT-PCRThis test was developed and its performance characteristics determined by [employer] ([employer] and validated at the [facility]. This test has not been FDA [...] on 08-05-2022 Creatinine [Mass/Vol] 0.97 mg/dL 0.44-1.03 [facility] Eosinophils Auto (Bld) [#/Vo l]Ordered By: Rodolfo Harley on 08-05-2022 Eosinophils (Bld) [#/Vol] 0.2 10*3/uL 0.0-0.45 [facility] Eosinophils/100 WBC Auto (Bl d)Ordered By: Rodolfo Harley on 08-05-2022 Eosinophils/100 WBC (Bld) 4.9 % . [facility] Erythrocyte distribution wid th Auto (RBC) [Ratio]Ordered By: Rodolfo Harley on 08-05-2022 Erythrocyte distribution width (RBC) [Ratio] 14.5 % 11.9-15.3 [facility] Estimated glomerular filtrat ion rate (GFR) non- AmericanOrdered By: Rodolfo Harley on 08-05-2022 GFR/1.73 sq M.predicted among non-blacks MDRD (S/P/Bld) [Vol rate/Area] 59 mL/Min [facility] FUNGAL CULTUREon 08-05-2022 Fungus (Mycology) Culture Final report Abnormal [facility] Comment on above: Performed By: #### C XFUN ####[facility] [address] [place], [place] [address]Dr. Shahbaz Rogel Fungus Stain Final report Normal [facility] Comment on above: Performed By: #### C XFUN ####[facility] [address] [place], [place] [address]Dr. Shahbaz Rogel Result 1 Comment Abnormal [facility] Comment on above: Result Comment: MILADYS/ Calcofluor preparation: no fungus observed. Performed By: #### C XFUN ####[facility] [address] [place] [address]Dr. Shahbaz Rogel Result Comment: Aspe rgillus versicolor Result 2 Penicillium species Abnormal [facility] Comment on above: Performed By: #### C XFUN ####[facility] [address] [place], [place] [address]DrChen Rogel Globulin Calc (S) [Mass/Vol] Ordered By: Rodolfo Harley on 08-05-2022 Globulin (S) [Mass/Vol] 2.9 g/dL [facility] Hematocrit Auto (Bld) [Volum e fraction]Ordered By: Rodolfo Harley on 08-05-2022 Hematocrit (Bld) [Volume fraction] 43.3 % 34.0-46.4 [facility] Hemoglobin [Mass/volume] in BloodOrdered By: Rodolfo Harley on 08-05-2022 Hemoglobin (Bld) [Mass/Vol] 14.3 g/dL 11.8-15.4 [facility] Laboratory - CoagulationOrde red By: Rodolfo Harley on 08-05-2022 PT Coag (PPP) [Time] 12.4 s 9.0-12.9 [facility] Laboratory - Hematology and Cell countsOrdered By: Rodolfo Harley on 08-05-2022 Nucleated RBC/100 WBC (Bld) [Ratio] 0.0 % 0-0.5 [facility] Leukocytes [#/volume] in Blo od by Automated countOrdered By: Rodolfo Harley on 08-05-2022 WBC (Bld) [#/Vol] 3.4 10*3/uL 4.5-11.0 [facility] Lymphocytes Auto (Bld) [#/Vo l]Ordered By: Rodolfo Harley on 08-05-2022 Lymphocytes (Bld) [#/Vol] 0.9 10*3/uL 1.00-4.8 [facility] Lymphocytes/100 WBC Auto (Bl d)Ordered By: Rodolfo Harley on 08-05-2022 Lymphocytes/100 WBC (Bld) 27.2 % . [facility] MCH Auto (RBC) [Entitic mass ]Ordered By: Rodolfo Harley on 08-05-2022 MCH (RBC) [Entitic mass] 28.4 pg 24.7-34.3 [facility] MCHC Auto (RBC) [Mass/Vol]Or dered By: Rodolfo Harley on 08-05-2022 MCHC (RBC) [Mass/Vol] 33.1 g/dL 32.0-35.0 [facility] MCV Auto (RBC) [Entitic vol] Ordered By: Rodolfo Harley on 08-05-2022 MCV (RBC) [Entitic vol] 85.9 fL 80-100 [facility] Monocytes Auto (Bld) [#/Vol] Ordered By: Rodolfo Harley on 08-05-2022 Monocytes (Bld) [#/Vol] 0.3 10*3/uL 0.0-0.8 [facility] Monocytes/100 WBC Auto (Bld) Ordered By: Rodolfo Harley on 08-05-2022 Monocytes/100 WBC (Bld) 7.5 % . [facility] Neutrophils Auto (Bld) [#/Vo l]Ordered By: Rodolfo Harley on 08-05-2022 Neutrophils (Bld) [#/Vol] 2.0 10*3/uL 1.8-7.7 [facility] Neutrophils/100 WBC Auto (Bl d)Ordered By: Rodolfo Harley on 08-05-2022 Neutrophils/100 WBC (Bld) 59.9 % . [facility] No Panel InformationOrdered By: Rodolfo Harley on 08-05-2022 Estimated GFR () > 60 mL/Min [facility] Comment on above: GFR estimated refere nce range: According to KDOQI guidelines, <60 ml/min/1.73m2 is sufficient to diagnose a patient with chronic kidney disease. Pharmacy Creatinine Clearance (Chem N/A [facility] Platelet mean volume Auto (B ld) [Entitic vol]Ordered By: Rodolfo Harley on 08-05-2022 Platelet mean volume (Bld) [Entitic vol] 8.1 fL 6.3-10.7 [facility] Platelet poor plasma interna tional normalized ratio (INR) by coagulation assay (relatOrdered By: Rodolfo Harley on 08-05-2022 INR Coag (PPP) [Relative time] 1.1 {INR} [facility] Comment on above: INR Therapeutic Rang [...] 08-05-2022 Platelets (Bld) [#/Vol] 243 10*3/uL 150-450 [facility] Protein [Mass/volume] in Ser um or PlasmaOrdered By: Rodolfo Harley on 08-05-2022 Protein [Mass/Vol] 6.7 g/dL 6.1-7.9 [facility] RBC Auto (Bld) [#/Vol]Ordere d By: Rodolfo Harley on 08-05-2022 RBC (Bld) [#/Vol] 5.04 10*6/uL 3.60-5.00 [facility] Serum or plasma alanine snyder otransferase measurement without P-5'-P (enzymatic activiOrdered By: Rodolfo Harley on 08-05-2022 ALT No additional P-5'-P [Catalytic activity/Vol] 14 U/L 10-60 [facility] Serum or plasma albumin/glob ulin mass ratioOrdered By: Rodolfo Harley on 08-05-2022 Albumin/Globulin [Mass ratio] 1.3 {ratio} [facility] Serum or plasma alkaline sruthi sphatase measurement (enzymatic activity/volume)Ordered By: Rodolfo Harley on 08-05-2022 ALP [Catalytic activity/Vol] 91 U/L 32-92 [facility] Serum or plasma anion gap de terminationOrdered By: Rodolfo Harley on 08-05-2022 Anion gap [Moles/Vol] 14.3 mmol/L 6.0-15.0 [facility] Serum or plasma aspartate am inotransferase measurement (enzymatic activity/volume)Ordered By: Rodolfo Harley on 08-05-2022 AST [Catalytic activity/Vol] 21 U/L 10-42 [facility] Serum or plasma calcium dagoberto urement (mass/volume)Ordered By: Rodolfo Harley on 08-05-2022 Calcium [Mass/Vol] 9.5 mg/dL 8.2-10.2 [facility] Serum or plasma chloride anahy surement (moles/volume)Ordered By: Rodolfo Harley on 08-05-2022 Chloride [Moles/Vol] 102 mmol/L 95-114 [facility] Serum or plasma glucose dagoberto urement (mass/volume)Ordered By: Rodolfo Harley on 08-05-2022 Glucose [Mass/Vol] 76 mg/dL 70-100 [facility] Comment on above: ADA recommended refe rence rangeRandom Glucose Reference Range is dependent on time and content of last meal. Glucose of more than 200 mg/dL in a nonstressed, ambulatory subject supports the diagnosis of Diabetes Mellitus. Serum or plasma potassium me asurement (moles/volume)Ordered By: Rodolfo Harley on 08-05-2022 Potassium [Moles/Vol] 3.8 mmol/L 3.5-5.1 [facility] Serum or plasma sodium measu rement (moles/volume)Ordered By: Rodolfo Harley on 08-05-2022 Sodium [Moles/Vol] 138 mmol/L 136-146 [facility] Serum or plasma total biliru bin measurement (mass/volume)Ordered By: Rodolfo Harley on 08-05-2022 Bilirubin [Mass/Vol] 0.7 mg/dL 0.3-1.2 [facility] Serum or plasma total carbon dioxide measurement (moles/volume)Ordered By: Rodolfo Harley on 08-05-2022 CO2 [Moles/Vol] 25.5 mmol/L 22.0-30.0 [facility] Serum or plasma urea nitroge n measurement (mass/volume)Ordered By: Rodolfo Harley on 08-05-2022 Urea nitrogen [Mass/Vol] 12 mg/dL 9-23 [facility] Urine culture routineOrdered By: Rodolfo Harley on 08-05-2022 Bacteria identified Cx Nom (U) 2 Days [facility] XR ANKLE LT MIN 3 Von 2021 XR ANKLE LT MIN 3 V Normal [facility] [place] [facility] BNPon 07-06-2022 Natriuretic peptide B (Bld) [Mass/Vol] 843.0 pg/mL Normal <=900.0 [facility] Comment on above: Performed By: #### B DOBIE MAN, CRP, CMP ####[facility] [address] [place], [place] [address]Yw. Shahbaz Rogel CBC W MANUAL DIFFon 07-06-20 22 ATYPICAL LYMPH # Normal [facility] Comment on above: Performed By: #### C BCMAN ####[facility] [address]xs[address] [place] [id number]. Yilan Rogle ATYPICAL LYMPH % Normal [facility] Comment on above: Performed By: #### C CAIN ####[facility] [address] [place] [address]Dr. Yilan Rogel BAND # 0.0 103/ul Normal 0.0-0.3 [facility] Comment on above: Performed By: #### C BCBRICE ####[facility] R[address]ort[address] [place] [address]Dr. Yilan Rogle BAND % 0 % Normal 0-5 [facility] Comment on above: Performed By: #### C CAIN ####[facility] [address] [place], [place] [address]Dr. Yilan Rogle BASOM # 0.00 103/ul Normal 0.00-0.10 [facility] Comment on above: Performed By: #### C CAIN ####[facility] Sakck[address]un[address] [place], [place] [address]Dr. Yijarrod Rogel BASOM % 0.0 % Critically low 0.2-2.0 [facility] Comment on above: Performed By: #### C CAIN ####[facility] Dtlfpwuztn[address] [place], [place] [address]Dr. Yilan Rogel BLAST # Normal [facility] Comment on above: Performed By: #### C CAIN ####[facility] Ghpsbwzwkw[address] [place], [place] [address]Dr. Yilan Rogel BLAST % Normal [facility] Comment on above: Performed By: #### C CAIN ####[facility] Ikpkblcqfw[address] [place], [place] [address]Dr. Lilalan Rogel CORRECTED WBC Normal 4.0-11.0 [facility] Comment on above: Performed By: #### C CAIN ####[facility] Njmijopqu[address] [place], [place] [address]Dr. Yilan Rogel EOS # 0.00 103/ul Normal 0.00-0.70 [facility] Comment on above: Performed By: #### C CAIN ####[facility] [address] [place], [place] [address]Ri. Shahbaz Rogel EOS% 0.0 % Critically low 0.9-7.0 [facility] Comment on above: Performed By: #### C CAIN ####[facility] [address] [place], [place] [address]Hp. Shahbaz Rogel HCT 40.3 % Normal 36.0-48.0 [facility] Comment on above: Performed By: #### C CAIN ####[facility] [address]em[address] [place], [place] [address]Oz. Shahbaz Rogel HGB 12.7 g/dl Normal 12.0-16.0 [facility] Comment on above: Performed By: #### C CAIN ####[facility] [address] [place], [place] [address]Ke. Shahbaz Rogel LYMPHM # 0.41 103/ul Critically low 1.20-3.80 [facility] Comment on above: Performed By: #### Cheri BARLOW ####[facility] [address]vb[address] [place], [place] [address]Fa. Shahbaz Rogel LYMPHM% 7.0 % Critically low 20.5-60.0 [facility] Comment on above: Performed By: #### Cheri BARLOW ####[facility] [address] [place], [place] [address]Rz. Shahbaz Rogel MCH 28.0 pg Normal 26.7-34.0 [facility] Comment on above: Performed By: #### Cheri BARLOW ####[facility] Dlvwotfnyh45[address] [place], [place] [address]Au. Shahbaz Rogel MCHC 31.5 g/dl Normal 29.9-35.2 [facility] Comment on above: Performed By: #### Cheri BARLOW ####[facility] Iewyujptxv[address] [place], [place] [address]Hf. Shahbaz Rogel MCV 89.0 fL Normal 81.0-99.0 [facility] Comment on above: Performed By: #### Cheri BARLOW ####[facility] [address]mbi[address] [place], [place] [address]Wa. Yilan Rogel METAMYELOCYTE # Normal [facility] Comment on above: Performed By: #### C CAIN ####[facility] [address] [place] [id number]. Shahbaz Rogle METAMYELOCYTE % Normal [facility] [place] [facility] Comment on above: Performed By: #### C CAIN ####[facility] [address] [place] [address]Dr. Shahbaz Rogel MONOM# 0.00 103/ul Critically low 0.30-0.80 [facility] [place] [facility] Comment on above: Performed By: #### C CAIN ####[facility] M[address]aycszl[address] [place] [address]Dr. Shahbaz Rogel MONOM% 0.0 % Critically low 1.7-12.0 [facility] [place] [facility] Comment on above: Performed By: #### C CAIN ####[facility] [address] [place] [address]Dr. Shahbaz Rogel MPV 9.8 fL Normal 9.5-13.5 [facility] [place] [facility] Comment on above: Performed By: #### C CAIN ####[facility] [address]kw[address] [place] [address]Dr. Shahbaz Rogel MYELOCYTE # Normal [facility] Comment on above: Performed By: #### C CAIN ####[facility] [address]vmq[address] [place] [address]Dr. Shahbaz Rogel MYELOCYTE % Normal [facility] Comment on above: Performed By: #### C CAIN ####[facility] Cfyhxbcasb6[address] [place] [address]Dr. Shahbaz Rogel NRBC Normal [facility] Comment on above: Performed By: #### C CAIN ####[facility] [address]efuwa[address] [place] [address]Dr. Shahbaz Rogel PLT 187 103/ul Normal 150-450 [facility] Comment on above: Performed By: #### C CAIN ####[facility] N[address]haexg[address] [place] [address]Dr. Shahbaz Juan F RBC 4.53 106/ul Normal 4.20-5.40 [facility] [place] [facility] Comment on above: Performed By: #### C CAIN ####[facility] Ok[address]uy[address]cmk[address] [place] [address]Dr. Lilajarrod Juan F RDW 13.3 % Normal 11.0-15.0 [facility] [place] [facility] Comment on above: Performed By: #### C CAIN ####[facility] F[address]cspuxq86[address] [place] [address]Dr. Shahbaz Rogel SEG # 5.49 103/ul Normal 1.40-6.50 [facility] [place] [facility] Comment on above: Performed By: #### C CAIN ####[facility] Fkagsbsgdj11[address] [place] [address]Dr. Shahbaz Rogel SEG % 93.0 % Critically high 43.0-75.0 [facility] [place] [facility] Comment on above: Performed By: #### C CAIN ####[facility] Mr[address]owv[address] [place] [address]Dr. Shahbaz Rogel WBC 5.9 103/ul Normal 4.0-11.0 [facility] [place] [facility] Comment on above: Performed By: #### C CAIN ####[facility] [address]zh[address]ym[address] [place] [address]DrChen Rogel CRPon 07-06-2022 CRP [Mass/Vol] mg/L Normal <=1.0 [facility] [place] [facility] Comment on above: Performed By: #### B DOBIE MAN, CRP, CMP ####[facility] [address] [place] [address]DrChen Rogel PROF 14(COMP METB)on 022 Albumin [Mass/Vol] 3.4 g/dL Normal 3.4-5.0 [facility] [place] [facility] Comment on above: Performed By: #### B DOBIE MAN, CRP, CMP ####[facility] [address]veo[address] [place] [address]DrChen Rogel Albumin/Globulin [Mass ratio] 1.0 {ratio} Normal [facility] Comment on above: Performed By: #### B DOBIE MAN, CRP, CMP ####[facility] Q[address]mssth[address] [place] [address]Dr. Shahbaz Rogel ALP [Catalytic activity/Vol] 92 U/L Normal 46-116 [facility] Comment on above: Performed By: #### B DOBIE MAN, CRP, CMP ####[facility] Xwdnlxrqyz99[address] [place] [address]Dr. Shahbaz Rogel ALT [Catalytic activity/Vol] 21 U/L Normal 14-59 [facility] Comment on above: Performed By: #### B DOBIE MAN, CRP, CMP ####[facility] Ndayrnrvcf[address] [place] [address]Dr. Shahbaz Rogel Anion gap [Moles/Vol] 13.4 mmol/L Normal [facility] Comment on above: Performed By: #### B DOBIE MAN, CRP, CMP ####[facility] Xtiat[address]jbs[address] [place], [place] [address]Dr. Shahbaz Rogle AST [Catalytic activity/Vol] 16 U/L Normal 15-37 [facility] [place] [facility] Comment on above: Performed By: #### B DOBIE MAN, CRP, CMP ####[facility] Qtdvbfrkif[address] [place], [place] [address]Dr. Shahbaz Rogel Bilirubin [Mass/Vol] 0.2 mg/dL Normal 0.2-1.0 [facility] Comment on above: Performed By: #### B DOBIE MAN, CRP, CMP ####[facility] Eztynj[address]ir[address] [place], [place] [address]Dr. Shahbaz Rogel Calcium [Mass/Vol] 9.3 mg/dL Normal 8.5-10.1 [facility] Comment on above: Performed By: #### B DOBIE MAN, CRP, CMP ####[facility] Fevxt[address]rz[address] [place], [place] [address]Dr. Shahbaz Rogel Chloride [Moles/Vol] 105 mmol/L Normal 98-107 [facility] Comment on above: Performed By: #### B DOBIE MAN, CRP, CMP ####[facility] [address]hjgkp[address] [place], [place] [address]Dr. Shahbaz Rogel CO2 [Moles/Vol] 23.2 mmol/L Normal 21.0-32.0 [facility] Comment on above: Performed By: #### B DOBIE MAN, CRP, CMP ####[facility] J[address]ika[address] [place] [address]Dr. Shahbaz Rogel Creatinine [Mass/Vol] 1.23 mg/dL Critically high 0.55-1.02 [facility] [place] [facility] Comment on above: Performed By: #### B DOBIE MAN, CRP, CMP ####[facility] U[address]gbweoveh[address] [place] [address]Dr. Shahbaz Rogel EGFR-AF HAITIAN 55 mL/min/1.73m2 Critically low >=60 [facility] [place] [facility] Comment on above: Performed By: #### B DOBIE MAN, CRP, CMP ####[facility] Knfjdpebxu[address] [place] [address]Dr. Shahbaz Juan F EGFR-NON AF HAITIAN 45 mL/min/1.73m2 Critically low >=60 [facility] [place] [facility] Comment on above: Performed By: #### B DOBIE MAN, CRP, CMP ####[facility] Bbvrrxrcjh[address] [place], [place] [address]Dr. Shahbaz Rogel Globulin (S) [Mass/Vol] 3.3 g/dL Normal [facility] [place] [facility] Comment on above: Performed By: #### B DOBIE MAN, CRP, CMP ####[facility] Cxpbqzivei[address] [place], [place] [address]Dr. Shahbaz Rogel Glucose [Mass/Vol] 171 mg/dL Critically high 74-106 [facility] Comment on above: Performed By: #### B DOBIE MAN, CRP, CMP ####[facility] Ccidmkvzkj[address] [place], [place] [address]Dr. Shahbaz Rogel Potassium [Moles/Vol] 3.6 mmol/L Normal 3.5-5.1 [facility] Comment on above: Performed By: #### B DOBIE MAN, CRP, CMP ####[facility] Juzpxmegfp[address] [place], [place] [address]Dr. Shahbaz Rogel Protein [Mass/Vol] 6.7 g/dL Normal 6.4-8.2 [facility] Comment on above: Performed By: #### B DOBIE MAN, CRP, CMP ####[facility] Espngffgyw63[address] [place], [place] [address]Dr. Shahbaz Rogel Sodium [Moles/Vol] 138 mmol/L Normal 136-145 [facility] Comment on above: Performed By: #### B DOBIE MAN, CRP, CMP ####[facility] Lyc[address]qhd[address] [place] [address]Dr. Lilajarrod Rogel Urea nitrogen [Mass/Vol] 21.0 mg/dL Critically high 7.0-18.0 [facility] Comment on above: Performed By: #### B DOBIE MAN, CRP, CMP ####[facility] Lmukhst[address]hz[address] [place], [place] [address]Dr. Shahbaz Rogel Urea nitrogen/Creatinine [Mass ratio] 17.1 mg/mg Normal [facility] Comment on above: Performed By: #### B DOBIE MAN, CRP, CMP ####[facility] Nxprersxpb[address] [place], [place] [address]Dr. Shahbaz Rogel XR CHEST 2 Von 07-06-2022 XR CHEST 2 V Normal [facility] BNPon 07-05-2022 Natriuretic peptide B (Bld) [Mass/Vol] 83.0 pg/mL Normal <=900.0 [facility] Comment on above: Performed By: #### C RP, CMP, BNP ####[facility] Tmvpwobuea[address] [place], [place] [address]Dr. Shahbaz Rogel CBC AUTO DIFFon 07-05-2022 BASO # 0.0 103/ul Normal 0.0-0.1 [facility] Comment on above: Performed By: #### C BC ####[facility] [address]syrvdqdud[address] [place], [place] [address]Dr. Shahbaz Rogel Basophils/100 WBC (Bld) 0.4 % Normal 0.2-2.0 [facility] Comment on above: Performed By: #### C BC ####[facility] Efefvtuily[address] [place], [place] [address]Dr. Shahbaz Rogel EO # 0.1 103/ul Normal 0.0-0.7 [facility] Comment on above: Performed By: #### C BC ####[facility] Tgqllxajgx[address] [place], [place] [address]Dr. Shahbaz Rogel Eosinophils/100 WBC (Bld) 2.9 % Normal 0.9-7.0 [facility] Comment on above: Performed By: #### C BC ####[facility] [address]ys[address]azao[address] [place] [address]Dr. Shahbaz Rogel Erythrocyte distribution width (RBC) [Ratio] 13.4 % Normal 11.0-15.0 [facility] [place] [facility] Comment on above: Performed By: #### C BC ####[facility] Xsdvksconu[address] [place], [place] [address]Dr. Shahbaz Rogel Hematocrit (Bld) [Volume fraction] 41.7 % Normal 36.0-48.0 [facility] [place] [facility] Comment on above: Performed By: #### C BC ####[facility] Fcowajaoew[address] [place], [place] [address]Dr. Shahbaz Rogel Hemoglobin (Bld) [Mass/Vol] 12.9 g/dL Normal 12.0-16.0 [facility] [place] [facility] Comment on above: Performed By: #### C BC ####[facility] Kveqtwrtiw[address] [place], [place] [address]Dr. Shahbaz Rogel IG # 0.00 10e3/ul Normal 0.00-0.03 [facility] [place] [facility] Comment on above: Performed By: #### C BC ####[facility] Axzwacoaxp[address] [place], [place] [address]Dr. Shahbaz Rogel IG % 0.0 % Normal 0.0-0.5 [facility] [place] [facility] Comment on above: Performed By: #### C BC ####[facility] [address]ubzcmecwp[address] [place], [place] [address]Dr. Shahbaz Rogel LYMPH # 1.5 103/ul Normal 1.2-3.8 [facility] Comment on above: Performed By: #### C BC ####[facility] Eduitgqosd[address] [place], [place] [address]Dr. Shahbaz Rogel Lymphocytes/100 WBC (Bld) 32.9 % Normal 20.5-60.0 [facility] [place] [facility] Comment on above: Performed By: #### C BC ####[facility] Kfaaefhpou[address] [place], [place] [address]Dr. Shahbaz Rogel MANUAL DIFF REQ NO Normal [facility] Comment on above: Performed By: #### C BC ####[facility] [address]qxicajzn[address] [place] [address]Dr. Shahbaz Juan F MCH (RBC) [Entitic mass] 28.0 pg Normal 26.7-34.0 [facility] [place] [facility] Comment on above: Performed By: #### C BC ####[facility] [address] [place] [address]Dr. Shahbaz Rogel MCHC (RBC) [Mass/Vol] 30.9 g/dL Normal 29.9-35.2 [facility] Comment on above: Performed By: #### C BC ####[facility] Dcsblabmhh[address] [place], [place] [address]Dr. Shahbaz Rogel MCV (RBC) [Entitic vol] 90.5 fL Normal 81.0-99.0 [facility] [place] [facility] Comment on above: Performed By: #### C BC ####[facility] Dwrgixazjc[address] [place], [place] [address]Dr. Shahbaz Rogel MONO # 0.4 103/ul Normal 0.3-0.8 [facility] Comment on above: Performed By: #### C BC ####[facility] Nmzjuqethf[address] [place], [place] [address]Dr. Shahbaz Rogel Monocytes/100 WBC (Bld) 8.0 % Normal 1.7-12.0 [facility] [place] [facility] Comment on above: Performed By: #### C BC ####[facility] Sonvvaqtbs[address] [place], [place] [address]Dr. Shahbaz Rogel NEUT # 2.5 103/ul Normal 1.4-6.5 [facility] Comment on above: Performed By: #### C BC ####[facility] Hcruqmpdcp[address] [place], [place] [address]DrChen Rogel Neutrophils/100 WBC (Bld) 55.8 % Normal 43.0-75.0 [facility] Comment on above: Performed By: #### C BC ####[facility] [address]owmyxv[address] [place], [place] [address]DrChen Rogel Platelet mean volume (Bld) [Entitic vol] 9.7 fL Normal 9.5-13.5 [facility] [place] [facility] Comment on above: Performed By: #### C BC ####[facility] [address] [place] [address]Dr. Shahbaz Rogel PLT 158 103/ul Normal 150-450 [facility] [place] [facility] Comment on above: Performed By: #### C BC ####[facility] Lvzsbisane[address] [place] [id number]. Shahbaz Rogel RBC 4.61 106/ul Normal 4.20-5.40 [facility] Comment on above: Performed By: #### C BC ####[facility] Vff[address]xddouc[address] [place] [address]Dr. Shahbaz Rogel WBC 4.5 103/ul Normal 4.0-11.0 [facility] Comment on above: Performed By: #### C BC ####[facility] Qirmlmqbal[address] [place] [address]Dr. Shahbaz Rogel CRPon 07-05-2022 CRP [Mass/Vol] mg/L Normal <=1.0 [facility] [place] [facility] Comment on above: Performed By: #### C RP, CMP, BNP ####[facility] [address]auz[address] [place] [address]Dr. Shahbaz Rogel ECHO LIMITED STUDYon 022 ECHO LIMITED STUDY Normal [facility] PROF 14(COMP METB)on Albumin [Mass/Vol] 3.2 g/dL Critically low 3.4-5.0 [facility] Comment on above: Performed By: #### C RP, CMP, BNP ####[facility] [address]lydxbo[address] [place] [address]Dr. Shahbaz Rogel Albumin/Globulin [Mass ratio] 1.0 {ratio} Normal [facility] Comment on above: Performed By: #### C RP, CMP, BNP ####[facility] Ffbosnafmm[address] [place] [address]Dr. Shahbaz Rogel ALP [Catalytic activity/Vol] 88 U/L Normal 46-116 [facility] Comment on above: Performed By: #### C RP, CMP, BNP ####[facility] [address]wubjynbuj[address] [place] [address]Dr. Shahbaz Rogel ALT [Catalytic activity/Vol] 17 U/L Normal 14-59 [facility] Comment on above: Performed By: #### C RP, CMP, BNP ####[facility] Fydpiienfy[address] [place] [address]Dr. Shahbaz Rogel Anion gap [Moles/Vol] 12.5 mmol/L Normal Th [facility] Comment on above: Performed By: #### C RP, CMP, BNP ####[facility] [address]isxykkit[address] [place] [address]Dr. Shahbaz Rogel AST [Catalytic activity/Vol] 18 U/L Normal 15-37 [facility] Comment on above: Performed By: #### C RP, CMP, BNP ####[facility] [address]ylsxmwg[address] [place], [place] [address]Dr. Shahbaz Rogel Bilirubin [Mass/Vol] 0.3 mg/dL Normal 0.2-1.0 [facility] Comment on above: Performed By: #### C RP, CMP, BNP ####[facility] [address]ootsennpp[address] [place] [address]Dr. Shahbaz Rogel Calcium [Mass/Vol] 8.9 mg/dL Normal 8.5-10.1 [facility] Comment on above: Performed By: #### C RP, CMP, BNP ####[facility] X[address]dkiea[address] [place] [address]Dr. Shahbaz Rogel Chloride [Moles/Vol] 103 mmol/L Normal 98-107 [facility] Comment on above: Performed By: #### C RP, CMP, BNP ####[facility] Ils[address]vusihk[address] [place] [address]Dr. Shahbaz Rogel CO2 [Moles/Vol] 28.1 mmol/L Normal 21.0-32.0 [facility] Comment on above: Performed By: #### C RP, CMP, BNP ####[facility] [address]ojua[address] [place] [address]Dr. Shahbaz Rogel Creatinine [Mass/Vol] 1.24 mg/dL Critically high 0.55-1.02 [facility] Comment on above: Performed By: #### C RP, CMP, BNP ####[facility] [address]pfutwka[address] [place] [address]Dr. Shahbaz Rogel EGFR-AF HAITIAN 54 mL/min/1.73m2 Critically low >=60 [facility] [place] [facility] Comment on above: Performed By: #### C RP, CMP, BNP ####[facility] [address]jxdhwjo[address] [place] [address]Dr. Shahbaz Rogel EGFR-NON AF HAITIAN 45 mL/min/1.73m2 Critically low >=60 [facility] [place] [facility] Comment on above: Performed By: #### C RP, CMP, BNP ####[facility] [address] [place], [place] [address]Dr. Shahbaz Rogel Globulin (S) [Mass/Vol] 3.1 g/dL Normal [facility] Comment on above: Performed By: #### C RP, CMP, BNP ####[facility] X[address] [place], [place] [address]Dr. Shahbaz Rogel Glucose [Mass/Vol] 115 mg/dL Critically high 74-106 T [facility] Comment on above: Performed By: #### C RP, CMP, BNP ####[facility] Nvgjqrehzz[address] [place], [place] [address]Dr. Shahbaz Rogel Potassium [Moles/Vol] 3.6 mmol/L Normal 3.5-5.1 [facility] Comment on above: Performed By: #### C RP, CMP, BNP ####[facility] Hgumjzwppr[address] [place], [place] [address]Dr. Shahbaz Rogel Protein [Mass/Vol] 6.3 g/dL Critically low 6.4-8.2 [facility] Comment on above: Performed By: #### C RP, CMP, BNP ####[facility] Kluiwafhpv[address] [place], [place] [address]Dr. Shahbaz Rogel Sodium [Moles/Vol] 140 mmol/L Normal 136-145 [facility] Comment on above: Performed By: #### C RP, CMP, BNP ####[facility] Zxoirqxbam[address] [place] [address]Dr. Shahbaz Rogel Urea nitrogen [Mass/Vol] 18.0 mg/dL Normal 7.0-18.0 [facility] Comment on above: Performed By: #### C RP, CMP, BNP ####[facility] Ynerakjany[address] [place] [address]Dr. Shahbaz Rogel Urea nitrogen/Creatinine [Mass ratio] 14.5 mg/mg Normal [facility] Comment on above: Performed By: #### C RP, CMP, BNP ####[facility] Qheeoxmhtu24[address] [place], [place] [address]Dr. Lilajarrod Rogel T3, TOTAL (TRIIODOTHYRONINE) on 07-05-2022 T3, TOTAL 95 ng/dL Normal 71-180 [facility] Comment on above: Performed By: #### T 3TOTAL ####[facility] Hpubgdtyvd[address] [place], [place] [address]Dr. Lilajarrod Rogel CARDIAC ROSALINA 3-6on 2 CK [Catalytic activity/Vol] 78 U/L Normal 26-192 [facility] Comment on above: Performed By: #### C MREP ####[facility] Gogmhwaojt45[address] [place], [place] [address]Dr. Shahbaz Juan F CK.MB [Mass/Vol] 1.44 ng/mL Normal <=3.60 [facility] Comment on above: Performed By: #### C MREP ####[facility] Mvupjgaixu[address] [place], [place] [address]Dr. Shahbaz Rogel HSTROP 9.0 pg/mL Normal 4.0-51.3 [facility] Comment on above: Result Comment: CUT- OFF POINTS HAVE BEEN ESTABLISHED BASED ON THE FOURTH UNIVERSAL DEFINITIONS OF MYOCARDIALINFARCTION. THE UPPER REFERENCE LIMIT (URL) OF TROPONIN, DEFINED THE 99TH PERCENTILE OFcTnI DISTRIBUTION IN A REFERENCE POPULATION, HAS BEEN CONFIRMED THE DECISION THRESHOLDFOR [place] DIAGNOSIS. Performed By: #### C MREP ####[facility] Qhewpxxyxi839[address] [place], [place] [address]Dr. Shahbaz Rogel CK [Catalytic activity/Vol] 88 U/L Normal 26-192 [facility] Comment on above: Performed By: #### C MREP ####[facility] Hqredbfrsq5[address] [place] [id number]. Shahbaz Rogel CK.MB [Mass/Vol] 1.38 ng/mL Normal <=3.60 [facility] Comment on above: Performed By: #### C MREP ####[facility] Pviabwpqii5[address] [place] [id number]. Shahbaz Rogel HSTROP 7.0 pg/mL Normal 4.0-51.3 [facility] Comment on above: Result Comment: CUT- OFF POINTS HAVE BEEN ESTABLISHED BASED ON THE FOURTH UNIVERSAL DEFINITIONS OF MYOCARDIALINFARCTION. THE UPPER REFERENCE LIMIT (URL) OF TROPONIN, DEFINED THE 99TH PERCENTILE OFcTnI DISTRIBUTION IN A REFERENCE POPULATION, HAS BEEN CONFIRMED THE DECISION THRESHOLDFOR W[place] DIAGNOSIS. Performed By: #### C MREP ####[facility] [address]ux[address] [place] [address]Dr. Shahbaz Rogel CARDIAC ROSALINA ADMITon 022 CK [Catalytic activity/Vol] 87 U/L Normal 26-192 [facility] Comment on above: Performed By: #### C JACKSON, CMADM ####[facility] [address]qplpoqsj23[address] [place] [id number]. Shahbaz Rogel CK.MB [Mass/Vol] 1.80 ng/mL Normal <=3.60 [facility] Comment on above: Performed By: #### C JACKSON, CMADM ####[facility] Wnxdseznea17[address] [place] [address]Dr. Shahbaz Rogel HSTROP 7.6 pg/mL Normal 4.0-51.3 [facility] Comment on above: Result Comment: CUT- OFF POINTS HAVE BEEN ESTABLISHED BASED ON THE FOURTH UNIVERSAL DEFINITIONS OF MYOCARDIALINFARCTION. THE UPPER REFERENCE LIMIT (URL) OF TROPONIN, DEFINED THE 99TH PERCENTILE OFcTnI DISTRIBUTION IN A REFERENCE POPULATION, HAS BEEN CONFIRMED THE DECISION THRESHOLDFOR W[place] DIAGNOSIS. Performed By: #### C JACKSON, CMADM ####[facility] Qmwnwkpbjz9475 [place] [id number]. Shahbaz Rogel LEN 67 ng/mL Normal 9-82 [facility] Comment on above: Performed By: #### C MP, CMADM ####[facility] Jreexvoyxj[address] [place] [address]Dr. Shahbaz Juan F CBC AUTO DIFFon 07-04-2022 BASO # 0.0 103/ul Normal 0.0-0.1 [facility] Comment on above: Performed By: #### C BC ####[facility] Qrjjxevfim[address] [place], [place] [address]Dr. Shahbaz Roegl Basophils/100 WBC (Bld) 0.7 % Normal 0.2-2.0 [facility] Comment on above: Performed By: #### C BC ####[facility] Tepedypqtp5[address] [place], [place] [address]Dr. Shahbaz Rogel EO # 0.1 103/ul Normal 0.0-0.7 [facility] Comment on above: Performed By: #### C BC ####[facility] Bayerhpokw922[address] [place], [place] [address]Dr. Shahbaz Rogel Eosinophils/100 WBC (Bld) 3.4 % Normal 0.9-7.0 [facility] Comment on above: Performed By: #### C BC ####[facility] Gbtlamltmr[address] [place], [place] [address]Dr. Shahbaz Rogel Erythrocyte distribution width (RBC) [Ratio] 13.3 % Normal 11.0-15.0 [facility] Comment on above: Performed By: #### C BC ####[facility] Opgnoyllvx3512[address] [place], [place] [address]Dr. Shahbaz Rogel Hematocrit (Bld) [Volume fraction] 42.1 % Normal 36.0-48.0 [facility] Comment on above: Performed By: #### C BC ####[facility] Oeavvcbyqo1311[address] [place], [place] [address]Dr. Shahbaz Rogel Hemoglobin (Bld) [Mass/Vol] 13.3 g/dL Normal 12.0-16.0 [facility] Comment on above: Performed By: #### C BC ####[facility] Kjlalkoxsk[address] [place], [place] [address]Dr. Shahbaz Rogel IG # 0.01 10e3/ul Normal 0.00-0.03 [facility] Comment on above: Performed By: #### C BC ####[facility] Sm[address]llcf[address] [place] [address]DrChen Shahbaz Rogel IG % 0.3 % Normal 0.0-0.5 [facility] Comment on above: Performed By: #### C BC ####[facility] Febuaayxlb6621 [place] [address]DrChen Shahbaz Rogel LYMPH # 1.0 103/ul Critically low 1.2-3.8 [facility] Comment on above: Performed By: #### C BC ####[facility] Olhespfdgf26[address] [place], [place] [address]DrChen Shahbaz Rogel Lymphocytes/100 WBC (Bld) 35.6 % Normal 20.5-60.0 [facility] Comment on above: Performed By: #### C BC ####[facility] Xxpanxcxpy36[address] [place], [place] [address]DrChen Shahbaz Rogel MANUAL DIFF REQ NO Normal [facility] Comment on above: Performed By: #### C BC ####[facility] Mtgwhonuaa[address] [place], [place] [address]DrChen Shahbaz Rogel MCH (RBC) [Entitic mass] 27.9 pg Normal 26.7-34.0 [facility] Comment on above: Performed By: #### C BC ####[facility] Hlcyschkey[address] [place], [place] [address]DrChen Shahbaz Rogel MCHC (RBC) [Mass/Vol] 31.6 g/dL Normal 29.9-35.2 [facility] Comment on above: Performed By: #### C BC ####[facility] Mhodckiqjt95[address] [place], [place] [address]DrChen Shahbaz Rogel MCV (RBC) [Entitic vol] 88.3 fL Normal 81.0-99.0 [facility] Comment on above: Performed By: #### C BC ####[facility] Wtfmacbxud57[address] [place], [place] [address]DrChen Shahbaz Juan F MONO # 0.2 103/ul Critically low 0.3-0.8 [facility] Comment on above: Performed By: #### C BC ####[facility] Lahgyxgvsp[address] [place] [address]Dr. Shahbaz Rogel Monocytes/100 WBC (Bld) 7.9 % Normal 1.7-12.0 [facility] Comment on above: Performed By: #### C BC ####[facility] Olzfaeuozy2304 [place] [address]Dr. Shahbaz Rogel NEUT # 1.5 103/ul Normal 1.4-6.5 [facility] Comment on above: Performed By: #### C BC ####[facility] Zuynxqfnun6[address] [place] [address]Dr. Shahbaz Rogel Neutrophils/100 WBC (Bld) 52.1 % Normal 43.0-75.0 [facility] Comment on above: Performed By: #### C BC ####[facility] Zeifiqdehi5377 [place] [address]Dr. Shahbaz Rogel Platelet mean volume (Bld) [Entitic vol] 9.5 fL Normal 9.5-13.5 [facility] Comment on above: Performed By: #### C BC ####[facility] Ipwlkrblhz7[address] [place], [place] [address]Dr. Shahbaz Rogel PLT 172 103/ul Normal 150-450 [facility] Comment on above: Performed By: #### C BC ####[facility] Jerijnyifk[address] [place] [address]Dr. Shahbaz Rogel RBC 4.77 106/ul Normal 4.20-5.40 [facility] Comment on above: Performed By: #### C BC ####[facility] Opgrkqijoh9348 [place] [id number]. Shahbaz Rogel WBC 2.9 103/ul Critically low 4.0-11.0 [facility] Comment on above: Performed By: #### C BC ####[facility] Dlzstxplhc4167 [place] [address]Dr. Lilajarrod Juan F CELL COUNT BODY FLUIDon 10-0 BASOS Normal [facility] Comment on above: Performed By: #### B FCC ####[facility] Qjwukdzgse4834 [place] [phone]. Shahbaz Rogel Eosinophils/100 WBC (Bld) 4 % Normal [facility] Comment on above: Performed By: #### B FCC ####[facility] Iekqsoweur7498 [place] [id number]. Shahbaz Rogel Lymphocytes/100 WBC (Bld) 12 % Normal [facility] Comment on above: Performed By: #### B FCC ####[facility] Acauobgwug1434 [place] [id number]. Shahbaz Rogel Monocytes/100 WBC (Bld) 4 % Normal [facility] Comment on above: Performed By: #### B FCC ####[facility] Vbiriulabm[address] [place], [place] [address]Dr. Shahbaz Rogel RBC 67 cubic mm Normal [facility] Comment on above: Performed By: #### B FCC ####[facility] Murcrdtyuk[address] [place], [place] [address]Dr. Shahbaz Rogel SEGS 80 % Normal [facility] Comment on above: Performed By: #### B FCC ####[facility] [address]jvwvdwtsq0[address] [place], [place] [address]Dr. Shahbaz Rogel WBC BODY FLUID 223 cubic mm Normal [facility] Comment on above: Performed By: #### B FCC ####[facility] Ysoitadrjk[address] [place], [place] [address]Dr. Shahbaz Rogel CULTURE OTHERon 07-04-2022 CULTURE OTHER Culture Observations : NO GROWTH AT 48 HOURS. Normal [facility] Comment on above: Performed By: #### O THCX ####[facility] Ahjbfzcttb184[address] [place], [place] [address]Dr. Shahbaz Rogel CYTOLOGYon 07-04-2022 SENT TO REF LAB 07/04/22 [facility] Comment on above: Performed By: #### C YTO ####[facility] Pyssbpakdg[address] [place], [place] [address]Dr. Shahbaz Rogel Covid-19 PCR (CVDTB)on SARS-CoV-2 (COVID-19) RNA PAVAN+probe Ql (Unsp spec) Not detected Normal NOT DETECTED [facility] Comment on above: Result Comment: When diagnostic [...] for this test is supported by the [place] of Health and Human Service's declaration that [...] be used). Performed By: #### C VDTBH ####[facility] Mwpjpzqlsq0925[address] [place], [place] [address]Dr. Shahbaz Rogel GRAM STAINon 07-04-2022 COMMENTS NO ORGANISMS OBSERVED Normal [facility] Comment on above: Performed By: #### G STAIN ####[facility] Byvpwvftzb1850 [place] [address]Dr. Shahbaz Rogel DIPHTHEROIDS Normal [facility] Comment on above: Performed By: #### G STAIN ####[facility] Pvigvbiosk6623 [place] [address]Dr. Shahbaz Rogel EPITHELIALS Normal [facility] Comment on above: Performed By: #### G STAIN ####[facility] Awlvhkhijd15[address] [place] [address]Dr. Shahbaz Rogel FUNGAL ELEMENTS Normal [facility] Comment on above: Performed By: #### G STAIN ####[facility] Csnyzfbsbi3580 [place] [address]Dr. Shahbaz Rogel GRAM NEG BACILLI Normal [facility] Comment on above: Performed By: #### G STAIN ####[facility] Dnqibvktfu[address] [place], [place] [address]Dr. Shahbaz Rogel GRAM NEG DIPPLOCOCCI Normal [facility] Comment on above: Performed By: #### G STAIN ####[facility] Akcqtvdsjp72[address] [place], [place] [address]Dr. Shahbaz Rogel GRAM POS BACILLI Normal [facility] Comment on above: Performed By: #### G STAIN ####[facility] Nhqyrgclxe7[address] [place], [place] [address]Dr. Shahbaz Rogel GRAM POSITIVE COCCI Normal [facility] Comment on above: Performed By: #### G STAIN ####[facility] Jvvqicdpgw129[address] [place], [place] [address]Dr. Shahbaz Rogel GRAM STAIN SOURCE Rt Lower Lobe Bronch ial Washing Normal [facility] Comment on above: Performed By: #### G STAIN ####[facility] Ntcxzmisrp[address] [place], [place] [address]Dr. Shahbaz Rogel GS_DIPTH Normal [facility] Comment on above: Performed By: #### G STAIN ####[facility] Fhjyzsbgns[address] [place], [place] [address]Dr. Shahbaz Rogel WBC RARE Normal [facility] Comment on above: Performed By: #### G STAIN ####[facility] Zrjumaonmu50[address] [place], [place] [address]Dr. Shahbaz Rogel PROF 14(COMP METB)on 022 Albumin [Mass/Vol] 3.6 g/dL Normal 3.4-5.0 [facility] Comment on above: Performed By: #### CINDY Alonzo MP ####[facility] Dovzscfwec[address] [place], [place] [address]Dr. Shahbaz Rogel Albumin/Globulin [Mass ratio] 1.1 {ratio} Normal [facility] Comment on above: Performed By: #### CINDY Alonzo MP ####[facility] Qezzytqnrh[address] [place], [place] [address]Dr. Shahbaz Rogel ALP [Catalytic activity/Vol] 102 U/L Normal 46-116 [facility] Comment on above: Performed By: #### C CINDY PAZ ####[facility] Aobickjgxh64[address] [place] [address]Dr. Shahbaz Rogel ALT [Catalytic activity/Vol] 19 U/L Normal 14-59 [facility] Comment on above: Performed By: #### C JACKSON, CINDY ####[facility] Dajejpigei24[address] [place], [place] [address]Dr. Shahbaz Rogel Anion gap [Moles/Vol] 9.5 mmol/L Normal [facility] Comment on above: Performed By: #### C JACKSON, CINDY ####[facility] Mysnmwmkjo058[address] [place], [place] [address]Dr. Shahbaz Rogel AST [Catalytic activity/Vol] 19 U/L Normal 15-37 [facility] Comment on above: Performed By: #### C JACKSON, CINDY ####[facility] Toisefachb[address] [place], [place] [address]Dr. Shahbaz Rogel Bilirubin [Mass/Vol] 0.3 mg/dL Normal 0.2-1.0 [facility] Comment on above: Performed By: #### C CINDY PAZ ####[facility] Vkqpqwpgrt[address] [place], [place] [address]Dr. Shahbaz Rogel Calcium [Mass/Vol] 8.8 mg/dL Normal 8.5-10.1 [facility] Comment on above: Performed By: #### C JACKSON, CINDY ####[facility] Sosevdzaoj[address] [place], [place] [address]Dr. Shahbaz Rogel Chloride [Moles/Vol] 107 mmol/L Normal 98-107 [facility] Comment on above: Performed By: #### C JACKSON, CINDY ####[facility] Crpjytlyru[address] [place], [place] [address]Dr. Shahbaz Rogel CO2 [Moles/Vol] 29.5 mmol/L Normal 21.0-32.0 [facility] Comment on above: Performed By: #### C JACKSON, CINDY ####[facility] Tojlhywecu[address] [place], [place] [address]Dr. Shahbaz Rogel Creatinine [Mass/Vol] 0.97 mg/dL Normal 0.55-1.02 [facility] Comment on above: Performed By: #### C CINDY PAZ ####[facility] [address]hsdmc[address] [place] [id number]. Shahbaz Rogel EGFR-AF HAITIAN >60 Normal >=60 [facility] Comment on above: Performed By: #### C MP, CMADM ####[facility] Svzxpbpzpt3164 [place] [address]Dr. Shahbaz Rogel EGFR-NON AF HAITIAN 59 mL/min/1.73m2 Critically low >=60 [facility] Comment on above: Performed By: #### C MP, CMADM ####[facility] Xsxonthubz2548 [place] [id number]. Shahbaz Rogel Globulin (S) [Mass/Vol] 3.2 g/dL Normal [facility] Comment on above: Performed By: #### C JACKSON, CMADM ####[facility] Ponnudcnix[address] [place] [id number]. Shahbaz Rogel Glucose [Mass/Vol] 89 mg/dL Normal 74-106 [facility] Comment on above: Performed By: #### C JACKSON, CMADM ####[facility] Vjliuqqmqp1828 [place] [id number]. Shahbaz Rogel Potassium [Moles/Vol] 4.0 mmol/L Normal 3.5-5.1 [facility] Comment on above: Performed By: #### C MP, CMADM ####[facility] Amlqzciwog28[address] [place] [id number]. Shahbaz Rogel Protein [Mass/Vol] 6.8 g/dL Normal 6.4-8.2 [facility] Comment on above: Performed By: #### C MP, CMADM ####[facility] Drmaplvipx3765 [place] [id number]. Shahbaz Rogel Sodium [Moles/Vol] 142 mmol/L Normal 136-145 [facility] Comment on above: Performed By: #### C MP, CMADM ####[facility] Mcdsvzyvwm5254 [place] [id number]. Shahbaz Rogel Urea nitrogen [Mass/Vol] 11.0 mg/dL Normal 7.0-18.0 [facility] Comment on above: Performed By: #### C JACKSON, CMADM ####[facility] Gcsdaaikyl94[address] [place] [id number]. Shahbaz Rogel Urea nitrogen/Creatinine [Mass ratio] 11.3 mg/mg Normal [facility] Comment on above: Performed By: #### C MP, CMADM ####[facility] Fnbslqwqnr3938 [place] [phone]. Shahbaz Rogel T4on 07-04-2022 T4 [Mass/Vol] 4.70 ug/dL Critically low 4.80-13.90 [facility] Comment on above: Performed By: #### T SH, T4 ####[facility] [address]lrysk[address] [place] [address]Dr. Shahbaz Rogel TSHon 07-04-2022 TSH 0.359 uIU/mL Normal 0.358-3.74 0 [facility] Comment on above: Performed By: #### T SH, T4 ####[facility] [address]crbyzcumx[address] [place], [place] [address]Dr. Shahbaz Rogel XR CHEST 1 Von 07-04-2022 XR CHEST 1 V Normal [facility] XR CHEST 1 V Normal [facility] CHLAMYDIA PNEUMONIAE IgG IgM IgAon 06-27-2022 Chlamydia pneumoniae IgA <1:16 Normal Neg:<1:16 [facility] Comment on above: Performed By: #### C HLMPNE ####[facility] Gmzh[address]xzfl[address] [place], [place] [address]Dr. Shahbaz Rogel Chlamydia pneumoniae IgG <1:16 Normal Neg:<1:16 [facility] Comment on above: Performed By: #### C HLMPNE ####[facility] [address]ohywrx[address] [place] [address]Dr. Shahbaz Rogel Chlamydia pneumoniae IgM <1:10 Normal Neg:<1:10 [facility] Comment on above: Performed By: #### C HLMPNE ####[facility] Vaqjkvgxfc[address] [place] [address]Dr. Shahbaz Rogel Test Information: Comment Normal [facility] Comment on above: Result Comment: [...] or procedure. Performed By: #### C HLMPNE ####[facility] Kyrtrqasrs[address] [place] [id number]. Shahbaz Rogel Covid-19 PCR (CVDTBH)on 06-03 SARS-CoV-2 (COVID-19) RNA PAVAN+probe Ql (Unsp spec) Not detected Normal NOT DETECTED [facility] Comment on above: Result Comment: This test is not yet approved or cleared by the [place] FDA. When there are no FDA-approved or cleared tests available, and other criteria are met, FDA can make tests available under an emergency access mechanism called an Emergency Use Authorization (EUA). The EUA for this test is supported by the [place] of Health and Human Service's (HHS's) declaration [...] with SARS-CoV-2. Performed By: #### C VDTBH ####[facility] Ofxpcybsiz[address]368 [place] [phone] Rogel CYCLIC CITRULLINATED PEPTIDE AB (CCP)on 06-25-2022 CCP Antibodies IgG/IgA 13 units Normal 0-19 [facility] Comment on above: Result Comment: Nega tive <20 Weak positive 20 - 39 Moderate positive 40 - 59 Strong positive >59 Performed By: #### C CPAB ####[facility] Gqxxeevpli[address] [place] [address]DrChen Rogel ANTI NEUTROPHIL CYTOPLASMIC AB (ANCA) PRon 06-24-2022 Anti-MPO Antibodies <0.2 Normal 0.0-0.9 [facility] Comment on above: Result Comment: Perf ormed at: BN Performed By: #### A NCAP ####[facility] Pjqltmfuaj9[address] [place] [id number]. Shahbaz Rogel Anti-PR3 Antibodies 5.0 units Critically high 0.0-0.9 [facility] Comment on above: Result Comment: Perf ormed at: BN Performed By: #### A NCAP ####[facility] Vyovtmxzpg55[address] [place] [phone]. Shahbaz Rogel Atypical pANCA <1:20 Normal Neg:<1:20 [facility] Comment on above: Result Comment: The atypical pANCA pattern has been observed in a significantpercentage of patients with ulcerative colitis, primary sclerosingcholangitis and autoimmune hepatitis.Performed at: CB Performed By: #### A NCAP ####[facility] Eikukmicxm36[address] [place] [id number]. Shahbaz Rogel Cytoplasmic (C-ANCA) <1:20 Normal Neg:<1:20 [facility] Comment on above: Result Comment: Perf ormed at: CB Performed By: #### A NCAP ####[facility] [address]zsiawg[address] [place] [id number]. Shahbaz Rogel Perinuclear (P-ANCA) 1:80 Critically high Neg:<1:20 [facility] Comment on above: Result Comment: The presence of positive fluorescence exhibiting P-ANCA or C-ANCApatterns alone is not specific for the diagnosis of Ada'sGranulomatosis (WG) or microscopic polyangiitis. Decisions abouttreatment should not be based solely on ANCA IFA results. TheInternational ANCA Group Consensus recommends follow up testing ofpositive sera with both GA-3 and MPO-ANCA enzyme immunoassays. Asmany as 5% serum samples are positive only by EIA.Ref. AM J Clin Pathol 1999;111:507-513.Performed at: CB Performed By: #### A NCAP ####[facility] [address] [place] [id number]. Shahbaz Rogel ANTIGLOMERULAR BASEMENT MEMB ANTOINE ABSon 06-24-2022 Anti-GBM Antibodies <0.2 Normal 0.0-0.9 [facility] Comment on above: Performed By: #### A GBM ####[facility] [address]dl[address] [place] [address]Dr. Shahbaz Rogel SHAHANA EIA W/REFLEX 5 BIOMARKER Son 06-23-2022 SHAHANA Direct Negative Normal Negative [facility] Comment on above: Performed By: #### A NARF ####[facility] Bxrectksqx[address] [place], [place] [address]Dr. Shahbaz Rogel ANTISCLERODERMA ABon 022 Antiscleroderma-70 Antibodies <0.2 Normal 0.0-0.9 [facility] Comment on above: Performed By: #### A NSCLER ####[facility] Vxiojcwhqr[address] [place], [place] [address]Dr. Shahbaz Rogel RHEUMATOID FACTORon 06-23-20 22 RA Latex Turbid. <10.0 Normal <14.0 [facility] Comment on above: Performed By: #### R F ####[facility] Gdpzzrpxvc[address] [place], [place] [address]Dr. Shahbaz Rogel CBC AUTO DIFFon 06-22-2022 BASO # 0.0 103/ul Normal 0.0-0.1 [facility] Comment on above: Performed By: #### C BC ####[facility] Dxeuvypist23[address] [place], [place] [address]Dr. Shahbaz Rogel Basophils/100 WBC (Bld) 0.5 % Normal 0.2-2.0 [facility] Comment on above: Performed By: #### C BC ####[facility] Yoqcfxqpam86[address] [place], [place] [address]Dr. Shahbaz Rogel EO # 0.1 103/ul Normal 0.0-0.7 [facility] Comment on above: Performed By: #### C BC ####[facility] Suajebvtaf[address] [place], [place] [address]Dr. Shahbaz Rogel Eosinophils/100 WBC (Bld) 3.4 % Normal 0.9-7.0 [facility] Comment on above: Performed By: #### C BC ####[facility] [address]tc[address]mb[address] [place] [address]Dr. Shahbaz Rogel Erythrocyte distribution width (RBC) [Ratio] 13.2 % Normal 11.0-15.0 [facility] Comment on above: Performed By: #### C BC ####[facility] Ndasljdsvt7524[address] [place], [place] [address]Dr. Shahbaz Rogel Hematocrit (Bld) [Volume fraction] 45.6 % Normal 36.0-48.0 [facility] Comment on above: Performed By: #### C BC ####[facility] Wfezfdgrpm978[address] [place], [place] [address]Dr. Shahbaz Rogel Hemoglobin (Bld) [Mass/Vol] 14.7 g/dL Normal 12.0-16.0 [facility] Comment on above: Performed By: #### C BC ####[facility] Cajwoypedw6[address] [place], [place] [address]Dr. Shahbaz Rogel IG # 0.01 10e3/ul Normal 0.00-0.03 [facility] Comment on above: Performed By: #### C BC ####[facility] Dtsuxcdbik5726[address] [place], [place] [address]Dr. Shahbaz Rogel IG % 0.3 % Normal 0.0-0.5 [facility] Comment on above: Performed By: #### C BC ####[facility] Cdizgwsxkc473189 [address] [place], [place] [address]Dr. Shahbaz Rogel LYMPH # 1.0 103/ul Critically low 1.2-3.8 [facility] Comment on above: Performed By: #### C BC ####[facility] Hczzoraddf1730[address] [place], [place] [address]Dr. Shahbaz Rogel Lymphocytes/100 WBC (Bld) 25.7 % Normal 20.5-60.0 [facility] Comment on above: Performed By: #### C BC ####[facility] Ssdhdxfxpy6[address] [place], [place] [address]Dr. Shahbaz Rogel MANUAL DIFF REQ NO Normal [facility] Comment on above: Performed By: #### C BC ####[facility] Htcnxjqrbh[address] [place] [id number]. Shahbaz Juan F MCH (RBC) [Entitic mass] 28.1 pg Normal 26.7-34.0 [facility] Comment on above: Performed By: #### C BC ####[facility] Wlcqlnwvvv[address] [place] [address]Dr. Shahbaz Juan F MCHC (RBC) [Mass/Vol] 32.2 g/dL Normal 29.9-35.2 [facility] Comment on above: Performed By: #### C BC ####[facility] Ivcdwsonju[address] [place] [address]Dr. Shahbaz Rogel MCV (RBC) [Entitic vol] 87.2 fL Normal 81.0-99.0 [facility] Comment on above: Performed By: #### C BC ####[facility] Vqtxifxhwe366[address] [place], [place] [address]Dr. Shahbaz Rogel MONO # 0.2 103/ul Critically low 0.3-0.8 [facility] Comment on above: Performed By: #### C BC ####[facility] Qmghivojql9185[address] [place], [place] [address]Dr. Shahbaz Rogel Monocytes/100 WBC (Bld) 6.0 % Normal 1.7-12.0 [facility] Comment on above: Performed By: #### C BC ####[facility] Mftcxvirev9633[address] [place], [place] [address]DrChen Rogel NEUT # 2.5 103/ul Normal 1.4-6.5 [facility] Comment on above: Performed By: #### C BC ####[facility] Oegorbdcey3934[address] [place], [place] [address]DrChen Rogel Neutrophils/100 WBC (Bld) 64.1 % Normal 43.0-75.0 [facility] Comment on above: Performed By: #### C BC ####[facility] Qclputewdk579[address] [place], [place] [address]DrChen Rogel Platelet mean volume (Bld) [Entitic vol] 9.4 fL Critically low 9.5-13.5 [facility] Comment on above: Performed By: #### C BC ####[facility] [address]te[address]ym[address] [place] [address]Dr. Shahbaz Rogel PLT 212 103/ul Normal 150-450 [facility] Comment on above: Performed By: #### C BC ####[facility] Brgysdhmwm24[address] [place] [id number]. Shahbaz Rogel RBC 5.23 106/ul Normal 4.20-5.40 [facility] Comment on above: Performed By: #### C BC ####[facility] Tyt[address]pwozd[address] [place] [id number]. Shahbaz Rogel WBC 3.9 103/ul Critically low 4.0-11.0 [facility] Comment on above: Performed By: #### C BC ####[facility] Tmlbelfehf[address] [place] [address]Dr. Shahbaz Rogel PROF 14(COMP METB)on 022 Albumin [Mass/Vol] 4.1 g/dL Normal 3.4-5.0 [facility] Comment on above: Performed By: #### C MP ####[facility] [address]gh[address] [place] [address]Dr. Shahbaz Rogel Albumin/Globulin [Mass ratio] 1.1 {ratio} Normal [facility] Comment on above: Performed By: #### C MP ####[facility] [address]zfrhtoisg[address] [place] [address]Dr. Shahbaz Rogel ALP [Catalytic activity/Vol] 133 U/L Critically high 46-116 [facility] Comment on above: Performed By: #### C MP ####[facility] Jygbxzqyaa[address] [place] [id number]. Shahbaz Rogel ALT [Catalytic activity/Vol] 29 U/L Normal 14-59 [facility] Comment on above: Performed By: #### C MP ####[facility] Uemkfojxra[address] [place] [address]Dr. Shahbaz Rogel Anion gap [Moles/Vol] 10.9 mmol/L Normal [facility] Comment on above: Performed By: #### C MP ####[facility] Ailawjlzxh[address] [place] [id number]. Shahbaz Rogel AST [Catalytic activity/Vol] 23 U/L Normal 15-37 [facility] Comment on above: Performed By: #### C MP ####[facility] Wtextiosvv0665 [place] [id number]. Shahbaz Rogel Bilirubin [Mass/Vol] 0.3 mg/dL Normal 0.2-1.0 [facility] Comment on above: Performed By: #### C MP ####[facility] Pdustfjiya1285 [place] [address]Dr. Shahbaz Rogel Calcium [Mass/Vol] 9.1 mg/dL Normal 8.5-10.1 [facility] Comment on above: Performed By: #### C MP ####[facility] Kpyzrywtdf[address] [place], [place] [address]Dr. Shahbaz Rogel Chloride [Moles/Vol] 103 mmol/L Normal 98-107 [facility] Comment on above: Performed By: #### C MP ####[facility] Novyejojih917[address] [place], [place] [address]Dr. Shahbaz Rogel CO2 [Moles/Vol] 30.8 mmol/L Normal 21.0-32.0 [facility] Comment on above: Performed By: #### C MP ####[facility] Lm[address]xkhsjl[address] [place] [address]Dr. Shahbaz Rogel Creatinine [Mass/Vol] 1.02 mg/dL Normal 0.55-1.02 [facility] Comment on above: Performed By: #### C MP ####[facility] Lnkfkhlbte[address] [place] [id number]. Shahbaz Juan F EGFR-AF HAITIAN >60 Normal >=60 [facility] Comment on above: Performed By: #### C MP ####[facility] Aastbilsis[address] [place] [id number]. Lilajarrod Juan F EGFR-NON AF HAITIAN 56 mL/min/1.73m2 Critically low >=60 [facility] Comment on above: Performed By: #### C MP ####[facility] Ztbfpbghgc[address] [place] [address]Dr. Shahbaz Rogel Globulin (S) [Mass/Vol] 3.7 g/dL Normal [facility] Comment on above: Performed By: #### C MP ####[facility] Uinzleecae[address] [place] [address]Dr. Shahbaz Rogel Glucose [Mass/Vol] 80 mg/dL Normal 74-106 [facility] Comment on above: Performed By: #### C MP ####[facility] Tiwdafjlqt[address] [place] [address]Dr. Shahbaz Rogel Potassium [Moles/Vol] 3.7 mmol/L Normal 3.5-5.1 [facility] Comment on above: Performed By: #### C MP ####[facility] Vrhosdnokv0[address] [place], [place] [address]Dr. Shahbaz Rogel Protein [Mass/Vol] 7.8 g/dL Normal 6.4-8.2 [facility] Comment on above: Performed By: #### C MP ####[facility] Zmfwntkatc23[address] [place], [place] [address]Dr. Shahbaz Rogel Sodium [Moles/Vol] 141 mmol/L Normal 136-145 [facility] Comment on above: Performed By: #### C MP ####[facility] Trxbpvmxep105[address] [place], [place] [address]Dr. Shahbaz Rogel Urea nitrogen [Mass/Vol] 10.0 mg/dL Normal 7.0-18.0 [facility] Comment on above: Performed By: #### C MP ####[facility] Mqyvcqddjf27[address] [place], [place] [address]Dr. Shahbaz Rogel Urea nitrogen/Creatinine [Mass ratio] 9.8 mg/mg Normal [facility] Comment on above: Performed By: #### C MP ####[facility] Mhfsdrzzml48[address] [place], [place] [address]Dr. Shahbaz Rogel SED RATE WESTERGRENon 2021 SED RATE 17 mm/hr Normal <=30 [facility] Comment on above: Performed By: #### S EDR ####[facility] W[address] [place] [address]Dr. Shahbaz Rogel CT CHEST HI RESOLUTIONon CT CHEST HI RESOLUTION Normal [facility] XR ANKLE RT MIN 3 VIEWSon XR ANKLE RT MIN 3 VIEWS Normal [facility] CT CHEST WO CONon 03-03-2022 CT CHEST WO CON Normal [facility] CT CSPINE WO CONon 2 CT CSPINE WO CON Normal [facility] XR CHEST 2 Von 03-03-2022 XR CHEST 2 V Normal [facility] XR STERNUM MIN 2 VIEWSon XR STERNUM MIN 2 VIEWS Normal [facility] CT HEAD WO CONon 03-02-2022 CT HEAD WO CON Normal [facility] CBC AUTO DIFFon 01-21-2022 BASO # 0.0 103/ul Normal 0.0-0.1 [facility] Comment on above: Performed By: #### C BC ####[facility] Ihgwzisayr[address] [place] [address]Dr. Shahbaz Rogel Basophils/100 WBC (Bld) 0.0 % Critically low 0.2-2.0 [facility] Comment on above: Performed By: #### C BC ####[facility] Osgrxzagvv6167 [place] [address]Dr. Shahbaz Rogel EO # 0.0 103/ul Normal 0.0-0.7 [facility] Comment on above: Performed By: #### C BC ####[facility] Xegzrugmzn[address] [place] [address]Dr. Shahbaz Rogel Eosinophils/100 WBC (Bld) 0.0 % Critically low 0.9-7.0 [facility] Comment on above: Performed By: #### C BC ####[facility] Wazvjfbbzf79[address] [place] [address]Dr. Shahbaz Rogel Erythrocyte distribution width (RBC) [Ratio] 14.2 % Normal 11.0-15.0 [facility] Comment on above: Performed By: #### C BC ####[facility] Xgvhswrrjq[address] [place] [address]Dr. Shahbaz Rogel Hematocrit (Bld) [Volume fraction] 38.9 % Normal 36.0-48.0 [facility] Comment on above: Performed By: #### C BC ####[facility] Edbftidhea[address] [place] [address]Dr. Shahbaz Rogel Hemoglobin (Bld) [Mass/Vol] 11.8 g/dL Critically low 12.0-16.0 [facility] Comment on above: Performed By: #### C BC ####[facility] Hebxvgnpob3240[address] [place], [place] [address]Dr. Shahbaz Rogel IG # 0.03 10e3/ul Normal 0.00-0.03 [facility] Comment on above: Performed By: #### C BC ####[facility] Qdeogbmbtj3[address] [place], [place] [address]Dr. Shahbaz Rogel IG % 0.4 % Normal 0.0-0.5 [facility] Comment on above: Performed By: #### C BC ####[facility] Rpibqxrofi66[address] [place], [place] [address]Dr. Lilajarrod Rogel LYMPH # 0.8 103/ul Critically low 1.2-3.8 [facility] Comment on above: Performed By: #### C BC ####[facility] Kuielshbwj[address] [place] [address]Dr. Lilajarrod Rogel Lymphocytes/100 WBC (Bld) 10.3 % Critically low 20.5-60.0 [facility] Comment on above: Performed By: #### C BC ####[facility] Vsjhcazxbr70[address] [place] [address]Dr. Lilajarrod Rogel MANUAL DIFF REQ NO Normal [facility] Comment on above: Performed By: #### C BC ####[facility] Htjbvfwvzs7[address] [place], [place] [address]DrChen Lilajarrod Rogel MCH (RBC) [Entitic mass] 27.1 pg Normal 26.7-34.0 [facility] Comment on above: Performed By: #### C BC ####[facility] Icjogsgzvb36[address] [place], [place] [address]Dr. Shahbaz Rogel MCHC (RBC) [Mass/Vol] 30.3 g/dL Normal 29.9-35.2 [facility] Comment on above: Performed By: #### C BC ####[facility] Iharwzjtwx5035 [place] [id number]. Shahbaz Rogel MCV (RBC) [Entitic vol] 89.2 fL Normal 81.0-99.0 [facility] Comment on above: Performed By: #### C BC ####[facility] Siotachfll34[address] [place] [address]Dr. Shahbaz Juan F MONO # 0.4 103/ul Normal 0.3-0.8 [facility] Comment on above: Performed By: #### C BC ####[facility] Rdjuoichwr9994 [place] [address]Dr. Lilajarrod Rogel Monocytes/100 WBC (Bld) 4.7 % Normal 1.7-12.0 [facility] Comment on above: Performed By: #### C BC ####[facility] Rpabfsplaz3537 [place] [address]Dr. Shahbaz Juan F NEUT # 6.6 103/ul Critically high 1.4-6.5 [facility] Comment on above: Performed By: #### C BC ####[facility] Uqvigjtthm98[address] [place] [address]Dr. Shahbaz Juan F Neutrophils/100 WBC (Bld) 84.6 % Critically high 43.0-75.0 [facility] Comment on above: Performed By: #### C BC ####[facility] Styegrxuku0490 [place] [address]Dr. Shahbaz Juan F Platelet mean volume (Bld) [Entitic vol] 10.0 fL Normal 9.5-13.5 [facility] Comment on above: Performed By: #### C BC ####[facility] Gddfqlmzhp23[address] [place] [address]Dr. Shahbaz Juan F PLT 165 103/ul Normal 150-450 [facility] Comment on above: Performed By: #### C BC ####[facility] Hcfmsfbdmd3505 [place] [address]Dr. Shahbaz Rogel RBC 4.36 106/ul Normal 4.20-5.40 [facility] Comment on above: Performed By: #### C BC ####[facility] Gqwvjtzoce785[address] [place], [place] [address]Dr. Shahbaz Rogel WBC 7.8 103/ul Normal 4.0-11.0 [facility] Comment on above: Performed By: #### C BC ####[facility] Sgdqgzhxjm463[address] [place], [place] [address]Dr. Shahbaz Juan F ER URINE PROFILEon 2 Bilirubin Ql (U) Negative Normal NEGATIVE [facility] Comment on above: Performed By: #### E RUR ####[facility] Qljueuwlzp834[address] [place], [place] [address]Dr. Shahbaz Juan F Clarity (U) CLEAR Normal CLEAR [facility] Comment on above: Performed By: #### E RUR ####[facility] Xjozluonhw354[address] [place], [place] [address]Dr. Lilajarrod Juan F Color (U) LT. YELLOW Normal YELLOW [facility] Comment on above: Performed By: #### E RUR ####[facility] Woaubzspgz1118[address] [place], [place] [address]Dr. Shahbaz Rogel ERUAHD A micrscopic examina tion will be performed if indicated. Normal [facility] Comment on above: Performed By: #### E RUR ####[facility] Zszepsactz196[address] [place], [place] [address]Dr. Shahbaz Rogel Glucose Ql (U) Negative Normal NEGATIVE [facility] Comment on above: Performed By: #### E RUR ####[facility] Ledcdgvsnq9613[address] [place], [place] [address]Dr. Shahbaz Rogel Hemoglobin Ql (U) Negative Normal NEGATIVE [facility] Comment on above: Performed By: #### E RUR ####[facility] Grxughkors9179[address] [place], [place] [address]Dr. Shahbaz Rogel Ketones Ql (U) Negative Normal NEGATIVE [facility] Comment on above: Performed By: #### E RUR ####[facility] Npqjlercuw7072 [place] [address]Dr. Shahbaz Rogel LEUKOCYTES Negative Normal NEGATIVE [facility] Comment on above: Performed By: #### E RUR ####[facility] Zekokuutnp24[address] [place] [address]Dr. Shahbaz Rogel Nitrite Ql (U) Negative Normal NEGATIVE [facility] Comment on above: Performed By: #### E RUR ####[facility] Qygjrfcaub[address] [place], [place] [address]Dr. Shahbaz Rogel pH (U) 6.0 [pH] Normal 5-9 [facility] Comment on above: Performed By: #### E RUR ####[facility] Bwqxetoibz757[address] [place], [place] [address]Dr. Shahbaz Rogel SPEC GRAVITY 1.020 Normal 1.005-<=1. 025 [facility] Comment on above: Performed By: #### E RUR ####[facility] Uwlrhyirhb3[address] [place], [place] [address]Dr. Shahbaz Rogel UA PROTEIN Negative Normal NEGATIVE/ TRACE [facility] Comment on above: Performed By: #### E RUR ####[facility] Mrycjljgxs[address] [place], [place] [address]Dr. Shahbaz Juan F UR MICRO IND NOT INDICATED Normal [facility] Comment on above: Performed By: #### E RUR ####[facility] Fcrjlbqihn9[address] [place], [place] [address]Dr. Shahbaz Juan F Urobilinogen Qn (U) 0.2 {Melida'U}/dL Normal 0.2 - 1. 0 [facility] Comment on above: Performed By: #### E RUR ####[facility] Upzoakzsny1487[address] [place], [place] [address]Dr. Shahbaz Juan F POINT OF CARE GLUCOSEon 01-01 Glucose [Mass/Vol] 151 mg/dL Critically high 74-106 [facility] Comment on above: Performed By: #### P OCGLUC ####[facility] Eqinhamydf3525[address] [place], [place] [address]Dr. Shahbaz Rogel Glucose [Mass/Vol] 248 mg/dL Critically high 74-106 [facility] Comment on above: Performed By: #### P OCGLUC ####[facility] Saudmlplyo2827[address] [place], [place] [address]Dr. Shahbaz Rogel PROF 14(COMP METB)on 022 Albumin [Mass/Vol] 2.8 g/dL Critically low 3.4-5.0 Th [facility] Comment on above: Performed By: #### C MP ####[facility] Extpbamuko780[address] [place], [place] [address]Dr. Shahbaz Rogel Albumin/Globulin [Mass ratio] 0.9 {ratio} Normal [facility] Comment on above: Performed By: #### C MP ####[facility] Scimdbplsb9[address] [place], [place] [address]Dr. Shahbaz Rogel ALP [Catalytic activity/Vol] 90 U/L Normal 46-116 [facility] Comment on above: Performed By: #### C MP ####[facility] Mlsltkgzpw172[address] [place], [place] [address]Dr. Shahbaz Rogel ALT [Catalytic activity/Vol] 20 U/L Normal 14-59 [facility] Comment on above: Performed By: #### C MP ####[facility] Ggpuquaort6797[address] [place], [place] [address]Dr. Shahbaz Rogel Anion gap [Moles/Vol] 8.9 mmol/L Normal [facility] Comment on above: Performed By: #### C MP ####[facility] Mmlfcwlwik[address] [place], [place] [address]Dr. Shahbaz Rogel AST [Catalytic activity/Vol] 14 U/L Critically low 15-37 [facility] Comment on above: Performed By: #### C MP ####[facility] Whxfsafyhf2415[address] [place], [place] [address]Dr. Shahbaz Rogel Bilirubin [Mass/Vol] 0.1 mg/dL Critically low 0.2-1.3 [facility] Comment on above: Performed By: #### C MP ####[facility] Xedzxfouzl8564[address] [place], [place] [address]Dr. Shahbaz Rogel Calcium [Mass/Vol] 8.2 mg/dL Critically low 8.5-10.1 [facility] Comment on above: Performed By: #### C MP ####[facility] Vfsiontraq7[address] [place] [address]Dr. Shahbaz Rogel Chloride [Moles/Vol] 110 mmol/L Critically high 98-107 [facility] Comment on above: Performed By: #### C MP ####[facility] Ihuiewhqpm7565 [place] [address]Dr. Shahbaz Rogel CO2 [Moles/Vol] 28.0 mmol/L Normal 22.0-30.0 [facility] Comment on above: Performed By: #### C MP ####[facility] Ysbrlravia8[address] [place], [place] [address]Dr. Shahbaz Rogel Creatinine [Mass/Vol] 0.78 mg/dL Normal 0.52-1.04 [facility] Comment on above: Performed By: #### C MP ####[facility] Bzthfkqwlm[address] [place], [place] [address]Dr. Shahbaz Juan F EGFR-AF HAITIAN >60 Normal >=60 [facility] Comment on above: Performed By: #### C MP ####[facility] Sqsyyplxma4038[address] [place], [place] [address]Dr. Lilajarrod Juan F EGFR-NON AF HAITIAN >60 Normal >=60 [facility] Comment on above: Performed By: #### C MP ####[facility] Mhfuxaydjp[address] [place], [place] [address]Dr. Shahbaz Juan F Globulin (S) [Mass/Vol] 3.1 g/dL Normal [facility] Comment on above: Performed By: #### C MP ####[facility] Zxidobgune6150 [place] [address]Dr. Lilajarrod Juan F Glucose [Mass/Vol] 121 mg/dL Critically high 74-106 T [facility] Comment on above: Performed By: #### C MP ####[facility] Yfpdudovwl6536 [place] [address]Dr. Shahbaz Rogel Potassium [Moles/Vol] 3.9 mmol/L Normal 3.4-5.0 [facility] Comment on above: Performed By: #### C MP ####[facility] Qrxrkctdnx7[address] [place] [address]Dr. Shahbaz Rogel Protein [Mass/Vol] 5.9 g/dL Critically low 6.1-8.2 Th e [facility] Comment on above: Performed By: #### C MP ####[facility] [address] [place] [address]Dr. Shahbaz Rogel Sodium [Moles/Vol] 143 mmol/L Normal 137-145 [facility] Comment on above: Performed By: #### C MP ####[facility] Uzzdgvzqjl[address] [place], [place] [address]Dr. Shahbaz Rogel Urea nitrogen [Mass/Vol] 26.0 mg/dL Critically high 7.0-18.0 [facility] Comment on above: Performed By: #### C MP ####[facility] Jskjlbzotj[address] [place], [place] [address]Dr. Shahbaz Rogel Urea nitrogen/Creatinine [Mass ratio] 33.3 mg/mg Normal [facility] Comment on above: Performed By: #### C MP ####[facility] Qkonuyuuyd[address] [place], [place] [address]Dr. Shahbaz Rogel QQCBF-9-ZNGKDGBPUWZbm 2021 Jvwxv-8-Voeabazguiq, Serum 154 mg/dL Normal 101-187 [facility] Comment on above: Performed By: #### A LPHA-1 ####[facility] Eruyhazzog[address] [place], [place] [address]Dr. Shahbaz Rogel CBC AUTO DIFFon 01-20-2022 BASO # 0.0 103/ul Normal 0.0-0.1 [facility] Comment on above: Performed By: #### C BC ####[facility] Atvcsoahoi39[address] [place], [place] [address]Dr. Shahbaz Rogel Basophils/100 WBC (Bld) 0.0 % Critically low 0.2-2.0 [facility] Comment on above: Performed By: #### C BC ####[facility] Yqslrfmjpu3847[address] [place], [place] [address]Dr. Shahbaz Rogel EO # 0.0 103/ul Normal 0.0-0.7 [facility] Comment on above: Performed By: #### C BC ####[facility] Risorobqbl[address] [place] [address]Dr. Shahbaz Rogel Eosinophils/100 WBC (Bld) 0.0 % Critically low 0.9-7.0 [facility] Comment on above: Performed By: #### C BC ####[facility] Bdvrbjwztt2416[address] [place], [place] [address]Dr. Shahbaz Rogel Erythrocyte distribution width (RBC) [Ratio] 13.7 % Normal 11.0-15.0 [facility] Comment on above: Performed By: #### C BC ####[facility] Ovriqpenzn9[address] [place], [place] [address]Dr. Shahbaz Rogel Hematocrit (Bld) [Volume fraction] 41.2 % Normal 36.0-48.0 [facility] Comment on above: Performed By: #### C BC ####[facility] Spmoidgqeg789[address] [place], [place] [address]Dr. Shahbaz Rogel Hemoglobin (Bld) [Mass/Vol] 12.8 g/dL Normal 12.0-16.0 [facility] Comment on above: Performed By: #### C BC ####[facility] Xyvxthtezc4[address] [place], [place] [address]Dr. Shahbaz Rogel IG # 0.10 10e3/ul Critically high 0.00-0.03 [facility] Comment on above: Performed By: #### C BC ####[facility] Wwafhjizdm466[address] [place], [place] [address]Dr. Shahbaz Rogel IG % 0.5 % Normal 0.0-0.5 [facility] Comment on above: Performed By: #### C BC ####[facility] Tqwfuwvpax364[address] [place], [place] [address]Dr. Shahbaz Rogel LYMPH # 0.7 103/ul Critically low 1.2-3.8 [facility] Comment on above: Performed By: #### C BC ####[facility] Ocpsbsmkhs[address] [place] [address]Dr. Shahbaz Juan F Lymphocytes/100 WBC (Bld) 6.2 % Critically low 20.5-60.0 [facility] Comment on above: Result Comment: dif. not rqd. same as 01/18/22 Performed By: #### C BC ####[facility] Uimkvbdngs96[address] [place] [address]Dr. Lilajarrod Rogel MANUAL DIFF REQ NO Normal [facility] Comment on above: Performed By: #### C BC ####[facility] Kbbzuyitoy8920[address] [place], [place] [address]Dr. Shahbaz Juan F MCH (RBC) [Entitic mass] 27.2 pg Normal 26.7-34.0 [facility] Comment on above: Performed By: #### C BC ####[facility] Vfooknbuiy840[address] [place], [place] [address]Dr. Shahbaz Juan F MCHC (RBC) [Mass/Vol] 31.1 g/dL Normal 29.9-35.2 [facility] Comment on above: Performed By: #### C BC ####[facility] Gzridhikla206[address] [place], [place] [address]Dr. Lilajarrod Rogel MCV (RBC) [Entitic vol] 87.5 fL Normal 81.0-99.0 [facility] Comment on above: Performed By: #### C BC ####[facility] Oydpdighwd41[address] [place], [place] [address]Dr. Shahbaz Rogel MONO # 0.2 103/ul Critically low 0.3-0.8 [facility] Comment on above: Performed By: #### C BC ####[facility] Iwfxdnbwnb928[address] [place], [place] [address]Dr. Lilajarrod Rogel Monocytes/100 WBC (Bld) 1.7 % Normal 1.7-12.0 [facility] Comment on above: Performed By: #### C BC ####[facility] Oimiefxplf8536[address] [place], [place] [address]Dr. Shahbaz Rogel NEUT # 9.8 103/ul Critically high 1.4-6.5 [facility] Comment on above: Performed By: #### C BC ####[facility] Crstpcstuq25[address] [place] [id number]. Shahbaz Rogel Neutrophils/100 WBC (Bld) 91.6 % Critically high 43.0-75.0 [facility] Comment on above: Performed By: #### C BC ####[facility] Vfvupzebxp7592 [place] [id number]. Shahbaz Rogel Platelet mean volume (Bld) [Entitic vol] 10.0 fL Normal 9.5-13.5 [facility] Comment on above: Performed By: #### C BC ####[facility] Xgtocmnxqn1242 [place] [id number]. Shahbaz Rogel PLT 198 103/ul Normal 150-450 [facility] Comment on above: Performed By: #### C BC ####[facility] Layvrblbor0475 [place] [id number]. Shahbaz Rogel RBC 4.71 106/ul Normal 4.20-5.40 [facility] Comment on above: Performed By: #### C BC ####[facility] Rhlyitwnud0511 [place] [id number]. Shahbaz Rogel WBC 10.7 103/ul Normal 4.0-11.0 [facility] Comment on above: Performed By: #### C BC ####[facility] Iuenvfazdy64[address] [place] [id number]. Shahbaz Rogel POINT OF CARE GLUCOSEon 04-2 Glucose [Mass/Vol] 157 mg/dL Critically high 74-106 [facility] Comment on above: Performed By: #### P OCGLUC ####[facility] Axgrkdzqoz7140 [place] [id number]. Shahbaz Rogel Glucose [Mass/Vol] 225 mg/dL Critically high 74-106 [facility] Comment on above: Performed By: #### P OCGLUC ####[facility] Uqahploywz8069 [place] [id number]. Shahbaz Rogel Glucose [Mass/Vol] 185 mg/dL Critically high 74-106 [facility] Comment on above: Performed By: #### P OCGLUC ####[facility] Mxpwqvmncd33[address] [place] [address]Dr. Shahbaz Rogel Glucose [Mass/Vol] 134 mg/dL Critically high 74-106 [facility] Comment on above: Performed By: #### P OCGLUC ####[facility] Xszgkguxhl13[address] [place] [address]Dr. Shahbaz Rogel PROF 14(COMP METB)on 022 Albumin [Mass/Vol] 3.0 g/dL Critically low 3.4-5.0 [facility] Comment on above: Performed By: #### C MP ####[facility] Ozwconrkpx4165 [place] [address]Dr. Shahbaz Rogel Albumin/Globulin [Mass ratio] 0.9 {ratio} Normal [facility] Comment on above: Performed By: #### C MP ####[facility] Agaoowjwig[address] [place] [address]Dr. Shahbaz Rogel ALP [Catalytic activity/Vol] 81 U/L Normal 46-116 [facility] Comment on above: Performed By: #### C MP ####[facility] Kbvohpkyvv74[address] [place] [address]Dr. Shahbaz Rogel ALT [Catalytic activity/Vol] 14 U/L Normal 14-59 [facility] Comment on above: Performed By: #### C MP ####[facility] Ookqznbpnm4589 [place] [address]Dr. Shahbza Rogel Anion gap [Moles/Vol] 13.1 mmol/L Normal [facility] Comment on above: Performed By: #### C MP ####[facility] Dbbugvtvra0478 [place] [address]Dr. Shahbaz Rogel AST [Catalytic activity/Vol] 20 U/L Normal 15-37 [facility] Comment on above: Performed By: #### C MP ####[facility] Tnrcwfphpg58[address] [place] [address]Dr. Shahbaz Rogel Bilirubin [Mass/Vol] 0.3 mg/dL Normal 0.2-1.3 [facility] Comment on above: Performed By: #### C MP ####[facility] Mulfijafbj4501 [place] [id number]. Shahbaz Rogel Calcium [Mass/Vol] 8.5 mg/dL Normal 8.5-10.1 [facility] Comment on above: Performed By: #### C MP ####[facility] Xyalqpbevc6066 [place] [phone]. Shahbaz Rogel Chloride [Moles/Vol] 107 mmol/L Normal 98-107 [facility] Comment on above: Performed By: #### C MP ####[facility] Qejinhrnwi4612 [place] [address]Dr. Shahbaz Rogel CO2 [Moles/Vol] 24.0 mmol/L Normal 22.0-30.0 [facility] Comment on above: Performed By: #### C MP ####[facility] Zutesljnhm5404 [place] [address]Dr. Shahbaz Rogel Creatinine [Mass/Vol] 1.00 mg/dL Normal 0.52-1.04 [facility] Comment on above: Performed By: #### C MP ####[facility] Ehosyzjlbu474[address] [place], [place] [address]Dr. Shahbaz Rogel EGFR-AF HAITIAN >60 Normal >=60 [facility] Comment on above: Performed By: #### C MP ####[facility] Bbqoglwerq0635[address] [place], [place] [address]Dr. Shahbaz Juan F EGFR-NON AF HAITIAN 57 mL/min/1.73m2 Critically low >=60 [facility] Comment on above: Performed By: #### C MP ####[facility] Fhfljzldix404[address] [place], [place] [address]Dr. Shahbaz Rogel Globulin (S) [Mass/Vol] 3.4 g/dL Normal [facility] Comment on above: Performed By: #### C MP ####[facility] Olzjtechwq1335 [place] [address]Dr. Shahbaz Rogel Glucose [Mass/Vol] 153 mg/dL Critically high 74-106 [facility] Comment on above: Performed By: #### C MP ####[facility] Atybslhwwc5680 [place] [address]Dr. Shahbaz Rogel Potassium [Moles/Vol] 4.1 mmol/L Normal 3.4-5.0 [facility] Comment on above: Performed By: #### C MP ####[facility] Xnmsvdrmrv6080[address] [place], [place] [address]Dr. Shahbaz Rogel Protein [Mass/Vol] 6.4 g/dL Normal 6.1-8.2 [facility] Comment on above: Performed By: #### C MP ####[facility] Qochzzmnzm5089[address] [place], [place] [address]Dr. Shahbaz Rogel Sodium [Moles/Vol] 140 mmol/L Normal 137-145 [facility] Comment on above: Performed By: #### C MP ####[facility] Kxuimrucjt330[address] [place], [place] [address]Dr. Shahbaz Juan F Urea nitrogen [Mass/Vol] 26.0 mg/dL Critically high 7.0-18.0 [facility] Comment on above: Performed By: #### C MP ####[facility] Mnayigzgfo770[address] [place], [place] [address]Dr. Shahbaz Rogel Urea nitrogen/Creatinine [Mass ratio] 26.5 mg/mg Normal [facility] Comment on above: Performed By: #### C MP ####[facility] Iqfoewtvow645[address] [place], [place] [address]Dr. Shahbaz Rogel BNPon 01-19-2022 Natriuretic peptide B (Bld) [Mass/Vol] 117.0 pg/mL Normal <=900.0 [facility] Comment on above: Performed By: #### B DOBIE MAN, CMP ####[facility] Vbjsynymvq7510[address] [place], [place] [address]Dr. Shahbaz Juan F CBC AUTO DIFFon 01-19-2022 BASO # 0.0 103/ul Normal 0.0-0.1 [facility] Comment on above: Performed By: #### C BC ####[facility] Bvytmikjfa5557[address] [place], [place] [address]Dr. Shahbaz Rogel Basophils/100 WBC (Bld) 0.0 % Critically low 0.2-2.0 [facility] Comment on above: Performed By: #### C BC ####[facility] Gtypibspev8[address] [place] [address]Dr. Shahbaz Rogel EO # 0.0 103/ul Normal 0.0-0.7 [facility] Comment on above: Performed By: #### C BC ####[facility] Raqyvjugue518[address] [place], [place] [address]Dr. Shahbaz Rogel Eosinophils/100 WBC (Bld) 0.0 % Critically low 0.9-7.0 [facility] Comment on above: Performed By: #### C BC ####[facility] Ifuczrhgsj8423[address] [place], [place] [address]Dr. Shahbaz Rogel Erythrocyte distribution width (RBC) [Ratio] 13.4 % Normal 11.0-15.0 [facility] Comment on above: Performed By: #### C BC ####[facility] Tssiageops[address] [place], [place] [address]Dr. Shahbaz Rogel Hematocrit (Bld) [Volume fraction] 46.3 % Normal 36.0-48.0 [facility] Comment on above: Performed By: #### C BC ####[facility] Edkujeftot8949[address] [place], [place] [address]Dr. Shahbaz Rogel Hemoglobin (Bld) [Mass/Vol] 14.3 g/dL Normal 12.0-16.0 [facility] Comment on above: Performed By: #### C BC ####[facility] Yomsdoxasg517[address] [place], [place] [address]Dr. Shahbaz Rogel IG # 0.00 10e3/ul Normal 0.00-0.03 [facility] Comment on above: Performed By: #### C BC ####[facility] Dicditooor406[address] [place], [place] [address]Dr. Shahbaz Rogel IG % 0.0 % Normal 0.0-0.5 [facility] Comment on above: Performed By: #### C BC ####[facility] Fgyuzovlvb5936[address] [place], [place] [address]Dr. Lilajarrod Rogel LYMPH # 0.6 103/ul Critically low 1.2-3.8 [facility] Comment on above: Performed By: #### C BC ####[facility] Fdxcrlpqvt5436 [place] [id number]. Shahbaz Rogel Lymphocytes/100 WBC (Bld) 14.2 % Critically low 20.5-60.0 [facility] Comment on above: Performed By: #### C BC ####[facility] Pwhihhzoyb2968 [place] [id number] Rogel MANUAL DIFF REQ NO Normal [facility] Comment on above: Performed By: #### C BC ####[facility] Uepqrvzcik8558 [place] [id number]. Shahbaz Rogel MCH (RBC) [Entitic mass] 27.7 pg Normal 26.7-34.0 [facility] Comment on above: Performed By: #### C BC ####[facility] Awtqbwzsqz7632 [place] [address]Dr. Shahbaz Rogel MCHC (RBC) [Mass/Vol] 30.9 g/dL Normal 29.9-35.2 [facility] Comment on above: Performed By: #### C BC ####[facility] Bsizrpikyw6637[address] [place], [place] [address]DrChen Rogel MCV (RBC) [Entitic vol] 89.6 fL Normal 81.0-99.0 [facility] Comment on above: Performed By: #### C BC ####[facility] Jnyefotkgw4026 [place] [address]Dr. Shahbaz Rogel MONO # 0.0 103/ul Critically low 0.3-0.8 [facility] Comment on above: Performed By: #### C BC ####[facility] Ljzesrboxp5758 [place] [id number] Rogel Monocytes/100 WBC (Bld) 1.0 % Critically low 1.7-12.0 [facility] Comment on above: Performed By: #### C BC ####[facility] Ieirsyetjj6940[address] [place], [place] [address]DrChen Rogel NEUT # 3.5 103/ul Normal 1.4-6.5 [facility] Comment on above: Performed By: #### C BC ####[facility] Jaarecqaqf7[address] [place] [address]Dr. Shahbaz Rogel Neutrophils/100 WBC (Bld) 84.8 % Critically high 43.0-75.0 [facility] Comment on above: Performed By: #### C BC ####[facility] Vgbllalubo4686 [place] [address]Dr. Shahbaz Rogel Platelet mean volume (Bld) [Entitic vol] 9.8 fL Normal 9.5-13.5 [facility] Comment on above: Performed By: #### C BC ####[facility] Duaeutexkl469[address] [place], [place] [address]Dr. Shahbaz Rogel PLT 185 103/ul Normal 150-450 [facility] Comment on above: Performed By: #### C BC ####[facility] Nnxbfbpylb258189 [address] [place], [place] [address]Dr. Shahbaz Rogel RBC 5.17 106/ul Normal 4.20-5.40 [facility] Comment on above: Performed By: #### C BC ####[facility] Adbjsvpkvz675[address] [place], [place] [address]Dr. Shahbaz Rogel WBC 4.2 103/ul Normal 4.0-11.0 [facility] Comment on above: Performed By: #### C BC ####[facility] Krfocsgsaa5826[address] [place], [place] [address]Dr. Shahbaz Juan F LACTATE/LACTIC ACIDon 2021 Lactate [Moles/Vol] 1.7 mmol/L Normal 0.7-2.0 [facility] Comment on above: Performed By: #### L ACT ####[facility] Dbhdjcqntn2137[address] [place], [place] [address]Dr. Shahbaz Juan F POINT OF CARE GLUCOSEon 01-01 Glucose [Mass/Vol] 173 mg/dL Critically high 74-106 [facility] Comment on above: Performed By: #### P OCGLUC ####[facility] Uhjzeaeacn4179[address] [place], [place] [address]Dr. Yijarrod Rogel Glucose [Mass/Vol] 181 mg/dL Critically high 74-106 [facility] Comment on above: Performed By: #### P OCGLUC ####[facility] Yeidoimhwn0324 [place] [address]Dr. Shahbaz Rogel Glucose [Mass/Vol] 154 mg/dL Critically high 74-106 [facility] Comment on above: Performed By: #### P OCGLUC ####[facility] Jiakmisvwy8726 [place] [address]Dr. Shahbaz Rogel PROF 14(COMP METB)on 022 Albumin [Mass/Vol] 3.5 g/dL Normal 3.4-5.0 [facility] Comment on above: Performed By: #### B DOBIE MAN, CMP ####[facility] Seqgmryswl960[address] [place], [place] [address]Dr. Shahbaz Rogel Albumin/Globulin [Mass ratio] 0.9 {ratio} Normal [facility] Comment on above: Performed By: #### B DOBIE MAN, CMP ####[facility] Cbyrhimxfq027[address] [place], [place] [address]Dr. Shahbaz Rogel ALP [Catalytic activity/Vol] 107 U/L Normal 46-116 [facility] Comment on above: Performed By: #### B DOBIE MAN, CMP ####[facility] Gqdcrdafqc196[address] [place], [place] [address]Dr. Shahbaz Rogel ALT [Catalytic activity/Vol] 18 U/L Normal 14-59 [facility] Comment on above: Performed By: #### B DOBIE MAN, CMP ####[facility] Yhntcwtdqk744[address] [place], [place] [address]Dr. Shahbaz Rogel Anion gap [Moles/Vol] 14.1 mmol/L Normal [facility] Comment on above: Performed By: #### B DOBIE MAN, CMP ####[facility] Dfwfmddreh199[address] [place], [place] [address]Dr. Shahbaz Rogel AST [Catalytic activity/Vol] 19 U/L Normal 15-37 [facility] Comment on above: Performed By: #### B DOBIE MAN, CMP ####[facility] Uwrwrazrmh774[address] [place], [place] [address]Dr. Shahbaz Rogel Bilirubin [Mass/Vol] 0.5 mg/dL Normal 0.2-1.3 [facility] Comment on above: Performed By: #### B DOBIE MAN, CMP ####[facility] Umfkjnjelm057[address] [place], [place] [address]Dr. Shahbaz Rogel Calcium [Mass/Vol] 8.5 mg/dL Normal 8.5-10.1 [facility] Comment on above: Performed By: #### B DOBIE MAN, CMP ####[facility] Bazswclses719[address] [place], [place] [address]Dr. Shahbaz Rogel Chloride [Moles/Vol] 103 mmol/L Normal 98-107 [facility] Comment on above: Performed By: #### B DOBIE MAN, CMP ####[facility] Zdaeeagnwd2315[address] [place], [place] [address]Dr. Shahbaz Rogel CO2 [Moles/Vol] 25.4 mmol/L Normal 22.0-30.0 [facility] Comment on above: Performed By: #### B DOBIE MAN, CMP ####[facility] Tihspromdv0838[address] [place], [place] [address]Dr. Shahbaz Rogel Creatinine [Mass/Vol] 1.48 mg/dL Critically high 0.52-1.04 [facility] Comment on above: Performed By: #### B DOBIE MAN, CMP ####[facility] Yxngffqmio6314[address] [place], [place] [address]Dr. Shahbaz Rogel EGFR-AF HAITIAN 44 mL/min/1.73m2 Critically low >=60 [facility] Comment on above: Performed By: #### B DOBIE MAN, CMP ####[facility] Mmnmwjwjye30[address] [place], [place] [address]Dr. Shahbaz Rogel EGFR-NON AF HAITIAN 36 mL/min/1.73m2 Critically low >=60 [facility] Comment on above: Performed By: #### B DOBIE MAN, CMP ####[facility] Vaephznwur9501[address] [place], [place] [address]Dr. Shahbaz Rogel Globulin (S) [Mass/Vol] 3.7 g/dL Normal [facility] Comment on above: Performed By: #### B DOBIE MAN, CMP ####[facility] Iueoquennw835[address] [place], [place] [address]Dr. Shahbaz Rogel Glucose [Mass/Vol] 203 mg/dL Critically high 74-106 [facility] Comment on above: Performed By: #### B DOBIE MAN, CMP ####[facility] Qaudiektsp765[address] [place], [place] [address]Dr. Shahbaz Rogel Potassium [Moles/Vol] 3.5 mmol/L Normal 3.4-5.0 [facility] Comment on above: Performed By: #### B DOBIE MAN, CMP ####[facility] Kdrlkavabd8836[address] [place], [place] [address]Dr. Shahbaz Rogel Protein [Mass/Vol] 7.2 g/dL Normal 6.1-8.2 [facility] Comment on above: Performed By: #### B DOBIE MAN, CMP ####[facility] Vwqwxyxxkd639[address] [place], [place] [address]Dr. Shahbaz Rogel Sodium [Moles/Vol] 139 mmol/L Normal 137-145 [facility] Comment on above: Performed By: #### B DOBIE MAN, CMP ####[facility] Yecgmfurfo4749[address] [place], [place] [address]Dr. Shahbaz Rogel Urea nitrogen [Mass/Vol] 17.0 mg/dL Normal 7.0-18.0 [facility] Comment on above: Performed By: #### B DOBIE MAN, CMP ####[facility] Xccnyjoqxv0910[address] [place], [place] [address]Dr. Shahbaz Rogel Urea nitrogen/Creatinine [Mass ratio] 11.5 mg/mg Normal [facility] Comment on above: Performed By: #### B DOBIE MAN, CMP ####[facility] Mqsgqztier95[address] [place], [place] [address]Dr. Shahbaz Rogel BNPon 01-18-2022 Natriuretic peptide B (Bld) [Mass/Vol] 55.0 pg/mL Normal <=900.0 [facility] Comment on above: Performed By: #### C MP, BNP, HSTROPN ####[facility] Kvmdogspxa45[address] [place], [place] [address]Dr. Shahbaz Rogel CBC W MANUAL DIFFon 04-19-20 22 ATYPICAL LYMPH # 0.12 103/ul Normal [facility] Comment on above: Performed By: #### C CAIN ####[facility] M[address]hzypxcp6[address] [place] [address]Dr. Shahbaz Rogel ATYPICAL LYMPH % 2 % Normal [facility] Comment on above: Performed By: #### C CAIN ####[facility] Fhtklvnnvz58[address] [place] [address]Dr. Yilan Rogel BAND # 0.0 103/ul Normal 0.0-0.3 [facility] Comment on above: Performed By: #### C CAIN ####[facility] Rzfvejrfmi9[address] [place] [address]Dr. Yilan Rogel BAND % 0 % Normal 0-5 [facility] Comment on above: Performed By: #### C CAIN ####[facility] Znkhfwheqc5[address] [place], [place] [address]Dr. Shahbaz Rogel BASOM # 0.00 103/ul Normal 0.00-0.10 [facility] Comment on above: Performed By: #### C CAIN ####[facility] Kwijlfwybl[address] [place], [place] [address]Dr. Shahbaz Rogel BASOM % 0.0 % Critically low 0.2-2.0 [facility] Comment on above: Performed By: #### C CAIN ####[facility] Wtmlolvlhv[address] [place] [address]Dr. Shahbaz Rogel BLAST # Normal [facility] Comment on above: Performed By: #### C CAIN ####[facility] Quubqdxmfw1199 [place] [address]Dr. Shahbaz Rogel BLAST % Normal [facility] Comment on above: Performed By: #### C CAIN ####[facility] Jykbyluryn[address] [place], [place] [address]Dr. Shahbaz Rogel CORRECTED WBC Normal 4.0-11.0 [facility] Comment on above: Performed By: #### C CAIN ####[facility] Lykgsqvvrz677[address] [place], [place] [address]Dr. Lilalan Rogel EOS # 0.25 103/ul Normal 0.00-0.70 [facility] Comment on above: Performed By: #### C CAIN ####[facility] Daptmsvkom[address] [place] [id number]. Shahbaz Rogel EOS% 4.0 % Normal 0.9-7.0 [facility] Comment on above: Performed By: #### C CAIN ####[facility] Rotlntxnel8916 [place] [address]Dr. Shahbaz Rogel HCT 46.8 % Normal 36.0-48.0 [facility] Comment on above: Performed By: #### C CAIN ####[facility] Wboryanqdw9875 [place] [address]Dr. Shahbaz Rogel HGB 14.9 g/dl Normal 12.0-16.0 [facility] Comment on above: Performed By: #### C CAIN ####[facility] Qbdaxtdlxw0694 [place] [address]Dr. Shahbaz Rogel LYMPHM # 0.68 103/ul Critically low 1.20-3.80 [facility] Comment on above: Performed By: #### C CAIN ####[facility] Jznjqtnbmi2758 [place] [address]Dr. Shahbaz Rogel LYMPHM% 11.0 % Critically low 20.5-60.0 [facility] Comment on above: Performed By: #### C CAIN ####[facility] Qhnvsbcycp7107 [place] [address]Dr. Shahbaz Rogel MCH 27.6 pg Normal 26.7-34.0 [facility] Comment on above: Performed By: #### C CAIN ####[facility] Lwgukgnasf6314 [place] [address]Dr. Shahbaz Rogel MCHC 31.8 g/dl Normal 29.9-35.2 [facility] Comment on above: Performed By: #### C CAIN ####[facility] Jbtxhsqnqx5530 [place] [address]Dr. Shahbaz Rogel MCV 86.8 fL Normal 81.0-99.0 [facility] Comment on above: Performed By: #### C CAIN ####[facility] Trjyfrcysv7784 [place] [address]Dr. Shahbaz Rogel METAMYELOCYTE # Normal [facility] Comment on above: Performed By: #### C CAIN ####[facility] Mdbxvvdfpm2544 [place] [address]Dr. Shahbaz Rogel METAMYELOCYTE % Normal [facility] Comment on above: Performed By: #### C CAIN ####[facility] Ridmwzsbhm[address] [place] [address]Dr. Shahbaz Rogel MONOM# 0.19 103/ul Critically low 0.30-0.80 [facility] Comment on above: Performed By: #### C CAIN ####[facility] Doekoxqqcb449[address] [place], [place] [address]Dr. Shahbaz Rogel MONOM% 3.0 % Normal 1.7-12.0 [facility] Comment on above: Performed By: #### C CAIN ####[facility] Mcubykawpv[address] [place], [place] [address]Dr. Shahbaz Rogel MPV 9.6 fL Normal 9.5-13.5 [facility] Comment on above: Performed By: #### Cheri BARLOW ####[facility] Hgxqolihqx[address] [place], [place] [address]Dr. Shahbaz Rogel MYELOCYTE # Normal [facility] Comment on above: Performed By: #### C CAIN ####[facility] Mjksbehoph0564 [place] [address]Dr. Shahbaz Rogel MYELOCYTE % Normal [facility] Comment on above: Performed By: #### Cheri BARLOW ####[facility] Ywzlhooipc46[address] [place] [address]Dr. Shahbaz Rogel NRBC Normal [facility] Comment on above: Performed By: #### C CAIN ####[facility] Cyelxalogi62[address] [place] [address]Dr. Shahbaz Rogel PLT 203 103/ul Normal 150-450 [facility] Comment on above: Performed By: #### C CAIN ####[facility] Wghhvxouuh6252 [place] [address]Dr. Shahbaz Rogel RBC 5.39 106/ul Normal 4.20-5.40 [facility] Comment on above: Performed By: #### Cheri BARLOW ####[facility] Wujvxwhguc[address] [place] [address]Dr. Shahbaz Rogel RDW 13.7 % Normal 11.0-15.0 [facility] Comment on above: Performed By: #### Cheri BARLOW ####[facility] Tvvldttrmz6296 [place] [address]Dr. Shahbaz Rogel SEG # 4.96 103/ul Normal 1.40-6.50 [facility] Comment on above: Performed By: #### Cheri BARLOW ####[facility] Ahynqnxvgc5601 [place] [address]Dr. Shahbaz Rogel SEG % 80.0 % Critically high 43.0-75.0 [facility] Comment on above: Performed By: #### Cheri BARLOW ####[facility] Skqzyqbcfb8741 [place] [address]Dr. Shahbaz Rogel WBC 6.2 103/ul Normal 4.0-11.0 [facility] Comment on above: Performed By: #### Cheri BARLOW ####[facility] Nzelhpidbw[address] [place] [address]Dr. Shahbaz Rogel CULTURE BLOODon 01-18-2022 Microscopic examination of blood, culture Culture Observations: No growth at 5 days. Normal [facility] Comment on above: Performed By: #### B LDCX2 ####[facility] Tfqvkzfezj5406 [place] [id number]. Shahbaz Rogel Microscopic examination of blood, culture Culture Observations: No growth at 5 days Normal [facility] Comment on above: Performed By: #### B LDCX1 ####[facility] Iyiylznjtz7[address] [place], [place] [address]Dr. Shahbaz Rogel Covid-19 PCR (CVDTB)on 12-31 SARS-CoV-2 (COVID-19) RNA PAVAN+probe Ql (Unsp spec) Not detected Normal NOT DETECTED [facility] Comment on above: Result Comment: This test is not yet approved or cleared by the [place] FDA. When there are no FDA-approved or cleared tests available, and other criteria are met, FDA can make tests available under an emergency access mechanism called an Emergency Use Authorization (EUA). The EUA for this test is supported by the [place] of Health and Human Service's (HHS's) declaration [...] with SARS-CoV-2. Performed By: #### C VDTBH ####[facility] Tmkevfjoct468[address] [place], [place] [address]Dr. Shahbaz Rogel D-DIMERon 01-18-2022 D-DIMER 0.29 mg/L FEU Normal 0.19-0.50 [facility] Comment on above: Performed By: #### D DIM ####[facility] Sskhbmhmfp72[address] [place], [place] [address]Dr. Shahbaz Rogel D-DIMER COMMENTS SEE BELOW Normal [facility] Comment on above: Result Comment: [...] generalized hospitalization. Performed By: #### D DIM ####[facility] Yiyxowcbiv3639 [place] [address]Dr. Shahbaz Rogel INFLUENZA A AND B AGon 01-18 INFLUANEGH SEE BELOW Normal [facility] Comment on above: Result Comment: Nega tive for Flu A protein angiten. Infection due to Flu A cannot be ruled out. Flu A angiten in the sample may be below the detection limit of the test. Performed By: #### I NFLUAB ####[facility] Kenkpekcxu026[address] [place], [place] [address]Dr. Shahbaz Rogel INFLUBNEGH SEE BELOW Normal [facility] Comment on above: Result Comment: Nega tive for Flu B protein antigen. Infection due to Flu B cannot be ruled out. Flu B antigen in the sample may be below the detection limit of the test. Performed By: #### I NFLUAB ####[facility] Bdlidwbwnp[address] [place], [place] [address]Dr. Shahbaz Rogel INFLUENZA A AG Negative Normal NEGATIVE SEE COMMENT [facility] Comment on above: Performed By: #### I NFLUAB ####[facility] Lrzfstetzo[address] [place], [place] [address]Dr. Shahbaz Rogel INFLUENZA B AG Negative Normal NEGATIVE SEE COMMENT [facility] Comment on above: Performed By: #### I NFLUAB ####[facility] Rqctnkcfsg342[address] [place], [place] [address]Dr. Shahbaz Rogel INTERNAL CONTROLS Within Normal Limits Normal Wi thin Normal Limits [facility] Comment on above: Performed By: #### I NFLUAB ####[facility] Xummrnejqe[address] [place], [place] [address]Dr. Shahbaz Rogel LACTATE/LACTIC ACIDon 2021 Lactate [Moles/Vol] 1.0 mmol/L Normal 0.7-2.0 [facility] Comment on above: Performed By: #### L ACT ####[facility] Rwcdztkwke196[address] [place], [place] [address]Dr. Shahbaz Rogel PROF 14(COMP METB)on 022 Albumin [Mass/Vol] 3.8 g/dL Normal 3.4-5.0 [facility] Comment on above: Performed By: #### C MP, BNP, HSTROPN ####[facility] Tuipdlnxcl[address] [place], [place] [address]Dr. Shahbaz Rogel Albumin/Globulin [Mass ratio] 1.0 {ratio} Normal [facility] Comment on above: Performed By: #### C MP, BNP, HSTROPN ####[facility] Ftcbosbfnm[address] [place] [address]Dr. Shahbaz Rogel ALP [Catalytic activity/Vol] 116 U/L Normal 46-116 [facility] Comment on above: Performed By: #### C MP, BNP, HSTROPN ####[facility] Vqppulirne[address] [place], [place] [address]Dr. Shahbaz Rogel ALT [Catalytic activity/Vol] 16 U/L Normal 14-59 [facility] Comment on above: Performed By: #### C MP, BNP, HSTROPN ####[facility] Cdjldqhnvn78[address] [place], [place] [address]Dr. Shahbaz Rogel Anion gap [Moles/Vol] 9.4 mmol/L Normal [facility] Comment on above: Performed By: #### C MP, BNP, HSTROPN ####[facility] Hireutpewa[address] [place], [place] [address]Dr. Shahbaz Rogel AST [Catalytic activity/Vol] 19 U/L Normal 15-37 [facility] Comment on above: Performed By: #### C MP, BNP, HSTROPN ####[facility] Ikvtngykuy40[address] [place], [place] [address]Dr. Shahbaz Rogel Bilirubin [Mass/Vol] 0.5 mg/dL Normal 0.2-1.3 [facility] Comment on above: Performed By: #### C MP, BNP, HSTROPN ####[facility] Xaxsubvntc[address] [place], [place] [address]Dr. Shahbaz Rogel Calcium [Mass/Vol] 8.9 mg/dL Normal 8.5-10.1 [facility] Comment on above: Performed By: #### C MP, BNP, HSTROPN ####[facility] Owryaerdju[address] [place], [place] [address]Dr. Shahbaz Rogel Chloride [Moles/Vol] 104 mmol/L Normal 98-107 [facility] Comment on above: Performed By: #### C MP, BNP, HSTROPN ####[facility] Yjusmqensw[address] [place] [address]Dr. Shahbaz Rogel CO2 [Moles/Vol] 27.2 mmol/L Normal 22.0-30.0 [facility] Comment on above: Performed By: #### C MP, BNP, HSTROPN ####[facility] Nggoasygrs[address]99 [place] [address]Dr. Shahbaz Rogel Creatinine [Mass/Vol] 0.99 mg/dL Normal 0.52-1.04 [facility] Comment on above: Performed By: #### C MP, BNP, HSTROPN ####[facility] Yswmhnfzum38[address] [place] [address]Dr. Shahbaz Rogel EGFR-AF HAITIAN >60 Normal >=60 [facility] Comment on above: Performed By: #### C MP, BNP, HSTROPN ####[facility] Yjbkqgaccw5834 [place] [address]Dr. Shahbaz Rogel EGFR-NON AF HAITIAN 58 mL/min/1.73m2 Critically low >=60 [facility] Comment on above: Performed By: #### C MP, BNP, HSTROPN ####[facility] Wfvcymadrs[address] [place], [place] [address]Dr. Shahbaz Rogel Globulin (S) [Mass/Vol] 3.8 g/dL Normal [facility] Comment on above: Performed By: #### C MP, BNP, HSTROPN ####[facility] Jhvlohdpfs[address] [place], [place] [address]Dr. Shahbaz Rogel Glucose [Mass/Vol] 104 mg/dL Normal 74-106 [facility] Comment on above: Performed By: #### C MP, BNP, HSTROPN ####[facility] Xmrwuporoh[address] [place], [place] [address]Dr. Shahbaz Rogel Potassium [Moles/Vol] 3.6 mmol/L Normal 3.4-5.0 [facility] Comment on above: Performed By: #### C MP, BNP, HSTROPN ####[facility] Ljuepjbwsh[address] [place], [place] [address]Dr. Shahbaz Rogel Protein [Mass/Vol] 7.6 g/dL Normal 6.1-8.2 [facility] Comment on above: Performed By: #### C MP, BNP, HSTROPN ####[facility] Mfnsrzsqnl6[address] [place] [address]Dr. Shahbaz Rogel Sodium [Moles/Vol] 137 mmol/L Normal 137-145 [facility] Comment on above: Performed By: #### C MP, BNP, HSTROPN ####[facility] Xwwmlrnljc[address] [place] [address]Dr. Shahbaz Rogel Urea nitrogen [Mass/Vol] 9.0 mg/dL Normal 7.0-18.0 [facility] Comment on above: Performed By: #### C MP, BNP, HSTROPN ####[facility] Zauumsofji[address] [place] [address]Dr. Shahbaz Rogle Urea nitrogen/Creatinine [Mass ratio] 9.1 mg/mg Normal [facility] Comment on above: Performed By: #### C MP, BNP, HSTROPN ####[facility] Mwizgtlesc[address]406 [place] [address]Dr. Shahbaz Rogel TROPONIN, HIGH SENSITIVITYon 01-18-2022 HSTROP 6.4 pg/mL Normal 4.0-35.5 [facility] Comment on above: Result Comment: CUT- OFF POINTS HAVE BEEN ESTABLISHED BASED ON THE FOURTH UNIVERSAL DEFINITIONS OF MYOCARDIALINFARCTION. THE UPPER REFERENCE LIMIT (URL) OF TROPONIN, DEFINED THE 99TH PERCENTILE OFcTnI DISTRIBUTION IN A REFERENCE POPULATION, HAS BEEN CONFIRMED THE DECISION THRESHOLDFOR W[place] DIAGNOSIS. Performed By: #### C MP, BNP, HSTROPN ####[facility] Mkbryutlis[address] [place] [address]Dr. Shahbaz Rogel XR CHEST 2 Von 01-18-2022 XR CHEST 2 V Normal [facility] URINALYSIS REFLEXon 04-04-20 20 Appearance (U) CLEAR Normal CLEAR [facility] Comment on above: Order Comment: No: D o not add to previous draw Performed By: #### 1 0070, 23216, 02443, 27644, 88830, 16324 #### [facility] [address] [place] [address], [place] Bilirubin [Mass/Vol] Negative Normal NEGATIVE [facility] Comment on above: Order Comment: No: D o not add to previous draw Performed By: #### 1 0070, 50485, 30179, 09083, 60652, 06254 #### [facility] [address] [place] [address], [place] BLOOD Negative Normal NEGATIVE [facility] Comment on above: Order Comment: No: D o not add to previous draw Performed By: #### 1 0070, 01577, 75619, 99514, 34228, 02776 #### [facility] [address] [place] [address], [place] Color (U) YELLOW Normal YELLOW [facility] Comment on above: Order Comment: No: D o not add to previous draw Performed By: #### 1 0070, 31661, 92769, 35840, 23673, 37659 #### [facility] [address] [place] [address], [place] Glucose [Mass/Vol] Negative Normal NEGATIVE [facility] Comment on above: Order Comment: No: D o not add to previous draw Performed By: #### 1 0070, 45399, 07619, 74606, 89326, 15491 #### [facility] [address] [place] [address], [place] KETONE Negative Normal NEGATIVE [facility] Comment on above: Order Comment: No: D o not add to previous draw Performed By: #### 1 0070, 96313, 71211, 33139, 09193, 57911 #### [facility] [address] [place] [address], [place] LEUK ELIU Negative Normal NEGATIVE [facility] Comment on above: Order Comment: No: D o not add to previous draw Performed By: #### 1 0070, 88320, 90049, 86833, 80634, 60244 #### [facility] [address] [place] [address], [facility] MICRO NOT DONE Normal [facility] Comment on above: Order Comment: No: D o not add to previous draw Result Comment: Micr oscopics not performed on urines with negative chemical reactions unless requested in original order Performed By: #### 1 0070, 16178, 49752, 77595, 05943, 24875 #### [facility] [address] [facility] [place] [address], [facility] Nitrite Ql (U) Negative Normal NEGATIVE [facility] Comment on above: Order Comment: No: D o not add to previous draw Performed By: #### 1 0070, 27996, 66798, 33603, 12275, 71120 #### [facility] [address] [facility] [place] [address], [facility] pH (Bld) 5.0 Normal 5.0-8.0 [facility] Comment on above: Order Comment: No: D o not add to previous draw Performed By: #### 1 0070, 84907, 28020, 69929, 98952, 90784 #### [facility] [address] [facility] [place] [address], [facility] Protein (U) [Mass/Vol] Negative Normal NEGATIVE [facility] Comment on above: Order Comment: No: D o not add to previous draw Performed By: #### 1 0070, 37388, 05909, 23445, 78103, 55628 #### [facility] [address] [facility] [place] [address], [facility] SPEC GRAV 1.012 Low 1.015-1.02 0 [facility] Comment on above: Order Comment: No: D o not add to previous draw Performed By: #### 1 0070, 70151, 98031, 82493, 97145, 48138 #### [facility] [address] [facility] [place] [address], [facility] BASIC METABOLIC PANELon 07-0 Calcium [Mass/Vol] 8.4 mg/dL Low 8.6-10.3 [facility] Comment on above: Order Comment: No: D o not add to previous draw Performed By: #### 1 0070, 74161, 35753, 89895, 14235, 82657 #### [facility] [address] [place] [address], [facility] Chloride [Moles/Vol] 101 mmol/L Normal 98-107 [facility] Comment on above: Order Comment: No: D o not add to previous draw Performed By: #### 1 0070, 04648, 49642, 83353, 72739, 73947 #### [facility] [address] [place] [address], [facility] CO2 [Moles/Vol] 29 mmol/L Normal 21-31 [facility] Comment on above: Order Comment: No: D o not add to previous draw Performed By: #### 1 0070, 51794, 47438, 00719, 15883, 24434 #### [facility] [address] [place] [address], [facility] Creatinine [Mass/Vol] 0.79 mg/dL Normal 0.60-1.20 [facility] Comment on above: Order Comment: No: D o not add to previous draw Performed By: #### 1 0070, 67912, 30779, 91373, 15692, 19282 #### [facility] [address] [place] [address], [place] GFR/1.73 sq M predicted among blacks MDRD (S/P/Bld) [Vol rate/Area] mL/min/{1.73_m2} Normal >60 [facility] Comment on above: Order Comment: No: D o not add to previous draw Performed By: #### 1 0070, 85384, 10447, 39807, 03039, 99350 #### [facility] [address] [place] [address], [place] GFR/1.73 sq M predicted among non-blacks MDRD (S/P/Bld) [Vol rate/Area] mL/min/{1.73_m2} Normal >60 [facility] Comment on above: Order Comment: No: D o not add to previous draw Performed By: #### 1 0070, 76408, 57835, 94697, 77736, 55035 #### [facility] [address] [place] [address], [place] Glucose [Mass/Vol] 91 mg/dL Normal 70-100 [facility] Comment on above: Order Comment: No: D o not add to previous draw Performed By: #### 1 0070, 79276, 20101, 53426, 46960, 49779 #### [facility] [address] [place] [address], [facility] Potassium [Moles/Vol] 3.9 mmol/L Normal 3.5-5.1 [facility] Comment on above: Order Comment: No: D o not add to previous draw Performed By: #### 1 0070, 22653, 87821, 13982, 78562, 45692 #### [facility] [address] [place] [address], [place] Sodium [Moles/Vol] 133 mmol/L Low 136-145 [facility] Comment on above: Order Comment: No: D o not add to previous draw Performed By: #### 1 0070, 61092, 05465, 21699, 38581, 33756 #### [facility] [address] [place] [address], [place] Urea nitrogen [Mass/Vol] 10 mg/dL Normal 7-25 [facility] Comment on above: Order Comment: No: D o not add to previous draw Performed By: #### 1 0070, 55927, 04491, 19070, 41597, 38264 #### [facility] [address] [place] [address], [place] CBC W/DIFFon 04-02-2020 ABS BASOPHILS 0.0 10*3/uL Normal 0.0-0.2 [facility] Comment on above: Order Comment: No: D o not add to previous draw Performed By: #### 1 0070, 30379, 82926, 17703, 96911, 52442 #### [facility] [address] [place] [address], [facility] ABS IMM GRANS 0.0 10*3/uL Normal 0.0-0.2 [facility] Comment on above: Order Comment: No: D o not add to previous draw Performed By: #### 1 0070, 76033, 79432, 17478, 70692, 89574 #### [facility] [address] [place] [address], [facility] ABS NEUTROPHILS 4.5 10*3/uL Normal 1.6-7.6 [facility] Comment on above: Order Comment: No: D o not add to previous draw Performed By: #### 1 0070, 86085, 53831, 41483, 78798, 34840 #### [facility] [address] [place] [address], [facility] Basophils/100 WBC (Bld) 0.2 % Normal 0.0-1.0 [facility] Comment on above: Order Comment: No: D o not add to previous draw Performed By: #### 1 0070, 51320, 24023, 18561, 73016, 75074 #### [facility] [address] [facility] [place] [address], [facility] Eosinophils (Bld) [#/Vol] 0.2 10*3/uL Normal 0.0-0.5 [facility] Comment on above: Order Comment: No: D o not add to previous draw Performed By: #### 1 0070, 43940, 90027, 47059, 15894, 06673 #### [facility] [address] [place] [address], [facility] Eosinophils/100 WBC (Bld) 3.6 % Normal 0.0-6.0 [facility] Comment on above: Order Comment: No: D o not add to previous draw Performed By: #### 1 0070, 83691, 10212, 76095, 21273, 55693 #### [facility] [address] Erythrocyte distribution width (RBC) [Ratio] 12.7 % Normal 11.5-15.0 [facility] Comment on above: Order Comment: No: D o not add to previous draw Performed By: #### 1 0070, 26677, 80982, 97094, 77631, 49187 #### [facility] [address] Hematocrit (Bld) [Volume fraction] 42.9 % Normal 36.0-45.0 [facility] [facility] Comment on above: Order Comment: No: D o not add to previous draw Performed By: #### 1 0070, 53763, 28968, 48475, 40881, 24544 #### [facility] [address] Hemoglobin (Bld) [Mass/Vol] 13.5 g/dL Normal 12.0-15.0 [facility] Comment on above: Order Comment: No: D o not add to previous draw Performed By: #### 1 0070, 92036, 51854, 85522, 92590, 46099 #### [facility] [address] [place] [address], [facility] IMMATURE GRANS 0.3 % Normal 0.0-1.0 [facility] Comment on above: Order Comment: No: D o not add to previous draw Performed By: #### 1 0070, 80002, 84365, 76098, 28021, 61139 #### [facility] [address] [place] [address], [facility] Lymphocytes (Bld) [#/Vol] 1.1 10*3/uL Low 1.2-4.0 [facility] Comment on above: Order Comment: No: D o not add to previous draw Performed By: #### 1 0070, 88338, 54709, 21331, 07406, 87650 #### [facility] [address] [place] [address], [facility] Lymphocytes/100 WBC (Bld) 18.0 % Low 20.0-45.0 [facility] Comment on above: Order Comment: No: D o not add to previous draw Performed By: #### 1 0070, 10451, 25627, 78503, 45972, 73368 #### [facility] [address] [place] [address], [facility] MCH (RBC) [Entitic mass] 27.4 pg Normal 27.0-33.0 [facility] Comment on above: Order Comment: No: D o not add to previous draw Performed By: #### 1 0070, 41412, 18515, 71709, 42730, 64885 #### [facility] [address] [place] [address], [facility] MCHC (RBC) [Mass/Vol] 31.5 g/dL Low 32.0-35.0 [facility] Comment on above: Order Comment: No: D o not add to previous draw Performed By: #### 1 0070, 98026, 86497, 20223, 20450, 44542 #### [facility] [address] [place] [address], [facility] MCV (RBC) [Entitic vol] 87.0 fL Normal 82.0-98.0 [facility] Comment on above: Order Comment: No: D o not add to previous draw Performed By: #### 1 0070, 06017, 46763, 77428, 81133, 08856 #### [facility] [address] [place] [address], [facility] Monocytes (Bld) [#/Vol] 0.3 10*3/uL Normal 0.1-1.0 [facility] Comment on above: Order Comment: No: D o not add to previous draw Performed By: #### 1 0070, 73542, 38497, 74758, 71127, 11549 #### [facility] [address] [place] [address], [facility] MONOS 5.5 % Normal 5.0-12.0 [facility] Comment on above: Order Comment: No: D o not add to previous draw Performed By: #### 1 0070, 09630, 80296, 47570, 36783, 62235 #### [facility] [address] [facility] [place] [address], [facility] Neutrophils/100 WBC (Bld) 72.4 % High 40.0-72.0 [facility] Comment on above: Order Comment: No: D o not add to previous draw Performed By: #### 1 0070, 77827, 77576, 75287, 86245, 92051 #### [facility] [address] [facility] [place] [address], [facility] Nucleated RBC/100 WBC (Bld) [Ratio] 0 % Normal 0-0 [facility] Comment on above: Order Comment: No: D o not add to previous draw Performed By: #### 1 0070, 60748, 10261, 59365, 32644, 39992 #### [facility] [address] [facility] [place] [address], [facility] PLAT CNT 264 10*3/uL Normal 150-400 [facility] Comment on above: Order Comment: No: D o not add to previous draw Performed By: #### 1 0070, 12444, 16418, 69000, 98304, 57857 #### [facility] [address] [facility] [place] [address], [facility] RBC (Bld) [#/Vol] 4.93 10*6/uL Normal 3.80-5.00 [facility] Comment on above: Order Comment: No: D o not add to previous draw Performed By: #### 1 0070, 60365, 20571, 98260, 42296, 12396 #### [facility] [address] [facility] [place] [address], [facility] WBC (Bld) [#/Vol] 6.17 10*3/uL Normal 4.00-10.60 [facility] Comment on above: Order Comment: No: D o not add to previous draw Performed By: #### 1 0070, 59121, 52795, 56638, 54969, 12743 #### [facility] [address] MAGNESIUM BLOODon 04-02-2020 Magnesium [Mass/Vol] 2.0 mg/dL Normal 1.9-2.7 [facility] Comment on above: Order Comment: No: D o not add to previous draw Performed By: #### 1 0070, 92228, 48941, 70541, 60891, 34691 #### [facility] [address] PHOSPHORUS BLOODon 0 Phosphate [Mass/Vol] 3.1 mg/dL Normal 2.5-5.0 [facility] Comment on above: Order Comment: No: D o not add to previous draw Performed By: #### 1 0070, 76499, 86701, 15703, 27054, 98339 #### [facility] [address] [facility]. [address] POC GLUCOSE LABon 04-02-2020 Glucose [Mass/Vol] 134 mg/dL High 70-100 [facility] Comment on above: Performed By: #### 1 0070, 21096, 99537, 52790, 31490, 20798 #### [facility] [address] UFH HEPARIN ASSAYon 04-02-20 20 UNFRACTIONATED HEPARIN 0.91 IU/mL Critically high 0.30-0.7 0 [facility] Comment on above: Result Comment: Polk roxaban and Apixaban will interfere with the anti Xa assay used to monitor UFH and LMWH. RESULTS CHECKED AND CALLED. ACCURATELY READ BACK BY LYNN POLANCO RN @ [id number] Performed By: #### 1 0070, 76045, 24339, 90970, 11530, 06526 #### [facility] [address] [place] [address], [facility] ALBUMIN BLOODon 04-01-2020 Albumin [Mass/Vol] 3.0 g/dL Low 3.5-5.7 [facility] Comment on above: Performed By: #### 1 0070, 12010, 83238, 12120, 90681, 33030 #### [facility] [address] [place] [address], [facility] BASIC METABOLIC PANELon Calcium [Mass/Vol] 8.1 mg/dL Low 8.6-10.3 [facility] Comment on above: Order Comment: No: D o not add to previous draw Performed By: #### 1 0070, 31493, 00909, 87473, 13864, 52194 #### [facility] [address] [place] [address], [facility] Chloride [Moles/Vol] 105 mmol/L Normal 98-107 [facility] Comment on above: Order Comment: No: D o not add to previous draw Performed By: #### 1 0070, 09677, 46157, 98802, 60130, 97510 #### [facility] [address] [place] [address], [place] CO2 [Moles/Vol] 26 mmol/L Normal 21-31 [facility] Comment on above: Order Comment: No: D o not add to previous draw Performed By: #### 1 0070, 05998, 13414, 03304, 32835, 65725 #### [facility] [address] [place] [address], [facility] Creatinine [Mass/Vol] 0.65 mg/dL Normal 0.60-1.20 [facility] Comment on above: Order Comment: No: D o not add to previous draw Performed By: #### 1 0070, 49393, 14572, 98843, 41305, 38231 #### [facility] [address] [place] [address], [place] GFR/1.73 sq M predicted among blacks MDRD (S/P/Bld) [Vol rate/Area] mL/min/{1.73_m2} Normal >60 [facility] Comment on above: Order Comment: No: D o not add to previous draw Performed By: #### 1 0070, 46797, 85959, 27869, 72285, 34521 #### [facility] [address] [place] [address], [facility] GFR/1.73 sq M predicted among non-blacks MDRD (S/P/Bld) [Vol rate/Area] mL/min/{1.73_m2} Normal >60 [facility] Comment on above: Order Comment: No: D o not add to previous draw Performed By: #### 1 0070, 39880, 78135, 35356, 33886, 13587 #### [facility] [address] [place] [address], [place] Glucose [Mass/Vol] 87 mg/dL Normal 70-100 [facility] Comment on above: Order Comment: No: D o not add to previous draw Performed By: #### 1 0070, 68593, 94431, 50177, 04343, 96999 #### [facility] [address] [place] [address], [place] Potassium [Moles/Vol] 4.3 mmol/L Normal 3.5-5.1 [facility] Comment on above: Order Comment: No: D o not add to previous draw Performed By: #### 1 0070, 15199, 35826, 75462, 16352, 21345 #### [facility] [address] [place] [address], [place] Sodium [Moles/Vol] 136 mmol/L Normal 136-145 [facility] Comment on above: Order Comment: No: D o not add to previous draw Performed By: #### 1 0070, 44675, 15553, 46460, 06207, 73106 #### [facility] [address] Urea nitrogen [Mass/Vol] 8 mg/dL Normal 7-25 [facility] Comment on above: Order Comment: No: D o not add to previous draw Performed By: #### 1 0070, 40894, 20436, 55289, 69711, 33749 #### [facility] [address] CBC W/DIFFon 04-01-2020 ABS BASOPHILS 0.0 10*3/uL Normal 0.0-0.2 [facility] Comment on above: Order Comment: No: D o not add to previous draw Performed By: #### 1 0070, 23034, 52905, 75622, 20842, 21520 #### [facility] [address] ABS IMM GRANS 0.0 10*3/uL Normal 0.0-0.2 [facility] Comment on above: Order Comment: No: D o not add to previous draw Performed By: #### 1 0070, 92756, 97670, 82897, 65778, 04886 #### [facility] [address] ABS NEUTROPHILS 3.4 10*3/uL Normal 1.6-7.6 [facility] Comment on above: Order Comment: No: D o not add to previous draw Performed By: #### 1 0070, 15092, 13840, 27619, 88944, 88297 #### [facility] [address] Basophils/100 WBC (Bld) 0.2 % Normal 0.0-1.0 [facility] Comment on above: Order Comment: No: D o not add to previous draw Performed By: #### 1 0070, 53931, 70030, 38591, 26956, 60036 #### [facility] [address] [place] [address], [facility] Eosinophils (Bld) [#/Vol] 0.1 10*3/uL Normal 0.0-0.5 [facility] Comment on above: Order Comment: No: D o not add to previous draw Performed By: #### 1 0070, 39080, 55339, 25792, 74165, 43835 #### [facility] [address] [place] [address], [facility] Eosinophils/100 WBC (Bld) 2.6 % Normal 0.0-6.0 [facility] Comment on above: Order Comment: No: D o not add to previous draw Performed By: #### 1 0070, 90225, 15594, 73818, 63435, 32318 #### [facility] [address] [place] [address], [facility] Erythrocyte distribution width (RBC) [Ratio] 13.0 % Normal 11.5-15.0 [facility] Comment on above: Order Comment: No: D o not add to previous draw Performed By: #### 1 0070, 39502, 53035, 15694, 88548, 36250 #### [facility] [address] [place] [address], [facility] Hematocrit (Bld) [Volume fraction] 40.9 % Normal 36.0-45.0 [facility] Comment on above: Order Comment: No: D o not add to previous draw Performed By: #### 1 0070, 21590, 65289, 50403, 94116, 56521 #### [facility] [address] [place] [address], [facility] Hemoglobin (Bld) [Mass/Vol] 12.8 g/dL Normal 12.0-15.0 [facility] Comment on above: Order Comment: No: D o not add to previous draw Performed By: #### 1 0070, 18641, 23002, 78387, 63213, 56590 #### [facility] [address] [place] [address], [facility] IMMATURE GRANS 0.6 % Normal 0.0-1.0 [facility] Comment on above: Order Comment: No: D o not add to previous draw Performed By: #### 1 0070, 45806, 54727, 78655, 54460, 88322 #### [facility] [address] [place] [address], [facility] Lymphocytes (Bld) [#/Vol] 1.2 10*3/uL Normal 1.2-4.0 [facility] Comment on above: Order Comment: No: D o not add to previous draw Performed By: #### 1 0070, 82605, 62924, 95376, 81053, 13647 #### [facility] [address] [place] [address], [facility] Lymphocytes/100 WBC (Bld) 23.7 % Normal 20.0-45.0 [facility] Comment on above: Order Comment: No: D o not add to previous draw Performed By: #### 1 0070, 55229, 13118, 20677, 51102, 20198 #### [facility] [address] [place] [address], [facility] MCH (RBC) [Entitic mass] 27.4 pg Normal 27.0-33.0 [facility] Comment on above: Order Comment: No: D o not add to previous draw Performed By: #### 1 0070, 10231, 80112, 80048, 57678, 51391 #### [facility] [address] [place] [address], [facility] MCHC (RBC) [Mass/Vol] 31.3 g/dL Low 32.0-35.0 [facility] Comment on above: Order Comment: No: D o not add to previous draw Performed By: #### 1 0070, 78669, 01657, 17928, 34788, 14200 #### [facility] [address] [place] [address], [facility] MCV (RBC) [Entitic vol] 87.6 fL Normal 82.0-98.0 [facility] Comment on above: Order Comment: No: D o not add to previous draw Performed By: #### 1 0070, 77409, 29727, 29223, 80481, 62928 #### [facility] [address] [facility] [place] [address], [facility] Monocytes (Bld) [#/Vol] 0.3 10*3/uL Normal 0.1-1.0 [facility] Comment on above: Order Comment: No: D o not add to previous draw Performed By: #### 1 0070, 92894, 40402, 53258, 50410, 77309 #### [facility] [address] [facility] [place] [address], [facility] MONOS 5.4 % Normal 5.0-12.0 [facility] Comment on above: Order Comment: No: D o not add to previous draw Performed By: #### 1 0070, 59923, 76510, 06550, 49684, 17914 #### [facility] [address] [facility] [place] [address], [facility] Neutrophils/100 WBC (Bld) 67.5 % Normal 40.0-72.0 [facility] Comment on above: Order Comment: No: D o not add to previous draw Performed By: #### 1 0070, 13542, 59907, 72827, 07382, 29756 #### [facility] [address] [place] [id number], [facility] Nucleated RBC/100 WBC (Bld) [Ratio] 0 % Normal 0-0 [facility] Comment on above: Order Comment: No: D o not add to previous draw Performed By: #### 1 0070, 53613, 35800, 69417, 64408, 00509 #### [facility] [address] [facility] [place] [address], [facility] PLAT CNT 237 10*3/uL Normal 150-400 [facility] Comment on above: Order Comment: No: D o not add to previous draw Performed By: #### 1 0070, 49649, 55371, 17810, 23870, 66934 #### [facility] [address] [place] [address], [facility] RBC (Bld) [#/Vol] 4.67 10*6/uL Normal 3.80-5.00 [facility] Comment on above: Order Comment: No: D o not add to previous draw Performed By: #### 1 0070, 42397, 85604, 42138, 25540, 23225 #### [facility] [address] [facility] [place] [address], [facility] WBC (Bld) [#/Vol] 4.98 10*3/uL Normal 4.00-10.60 [facility] Comment on above: Order Comment: No: D o not add to previous draw Performed By: #### 1 0070, 15257, 25583, 30118, 07925, 41233 #### [address] CHEST AND LATERALon 04-01-20 CHEST AND LATERAL [facility] Department of Radiology [address] [place] [id number] Patient Name: EMIGDIO ELI : 1965 Sex: F Age: Race: White Pt. Location: [id number] Patient Status: I Ordered Date: 04/01/2020 7:00:00 AM Completed Date: 04/01/2020 09:03 AM Requesting Provider: REBECCA WEAVER Attending Provider: MARJAN GUTHRIE Report Copy To: Signs & Symptoms: Post [...] Approved by:Anne Adams04/01/2020 9:57 AM. I, Shari Salcedo,have reviewed the images and reports Electronically signed: Shari Salcedo. Transcribed by: [email or web address], User Resident: ANNE VEGA Electronically Signed by: SHARI SALCEDO @ 04/01/2020 10:12 AM I personally read this/these film(s) with this resident Normal [facility] Comment on above: Order Comment: No: D o not add to previous draw MAGNESIUM BLOODon 04-01-2020 Magnesium [Mass/Vol] 2.1 mg/dL Normal 1.9-2.7 [facility] Comment on above: Order Comment: No: D o not add to previous draw Performed By: #### 1 0070, 58514, 60675, 26409, 82816, 57866 #### [facility] [address] APTTon 03-31-2020 aPTT Coag (Bld) [Time] 28.3 s Normal 25.0-35.0 [facility] Comment on above: Order Comment: No: D [...] THIS PURPOSE. Performed By: #### 1 0070, 65005, 24525, 91197, 51288, 64927 #### [facility] [address] BASIC METABOLIC PANELon 03-04 Calcium [Mass/Vol] 7.8 mg/dL Low 8.6-10.3 [facility] Comment on above: Order Comment: No: D o not add to previous draw Performed By: #### 1 0070, 40988, 44003, 08373, 12818, 19572 #### [facility] [address] [place] [address], [facility] Chloride [Moles/Vol] 108 mmol/L High 98-107 [facility] Comment on above: Order Comment: No: D o not add to previous draw Performed By: #### 1 0070, 63788, 98419, 56671, 05647, 04774 #### [facility] [address] [place] [address], [facility] CO2 [Moles/Vol] 26 mmol/L Normal 21-31 [facility] Comment on above: Order Comment: No: D o not add to previous draw Performed By: #### 1 0070, 16862, 01232, 40892, 19182, 84528 #### [facility] [address] [place] [address], [place] Creatinine [Mass/Vol] 0.76 mg/dL Normal 0.60-1.20 [facility] Comment on above: Order Comment: No: D o not add to previous draw Performed By: #### 1 0070, 79037, 59396, 90828, 44721, 26430 #### [facility] [address] [place] [address], [place] GFR/1.73 sq M predicted among blacks MDRD (S/P/Bld) [Vol rate/Area] mL/min/{1.73_m2} Normal >60 [facility] Comment on above: Order Comment: No: D o not add to previous draw Performed By: #### 1 0070, 55761, 10864, 90441, 56145, 55513 #### [facility] [address] [place] [address], [place] GFR/1.73 sq M predicted among non-blacks MDRD (S/P/Bld) [Vol rate/Area] mL/min/{1.73_m2} Normal >60 [facility] Comment on above: Order Comment: No: D o not add to previous draw Performed By: #### 1 0070, 05553, 74288, 84484, 68165, 31494 #### [facility] [address] [place] [address], [place] Glucose [Mass/Vol] 97 mg/dL Normal 70-100 [facility] Comment on above: Order Comment: No: D o not add to previous draw Performed By: #### 1 0070, 22306, 99721, 03352, 25194, 25237 #### [facility] [address] [place] [address], [place] Potassium [Moles/Vol] 3.2 mmol/L Low 3.5-5.1 [facility] Comment on above: Order Comment: No: D o not add to previous draw Performed By: #### 1 0070, 25997, 71899, 95265, 42404, 84719 #### [facility] [address] Sodium [Moles/Vol] 140 mmol/L Normal 136-145 [facility] Comment on above: Order Comment: No: D o not add to previous draw Performed By: #### 1 0070, 78206, 49816, 04966, 50000, 90805 #### [facility] [address] [facility]. [address] Urea nitrogen [Mass/Vol] 15 mg/dL Normal 7-25 [facility] Comment on above: Order Comment: No: D o not add to previous draw Performed By: #### 1 0070, 10929, 03085, 08070, 61471, 09857 #### [facility] [address] CBC W/DIFFon 03-31-2020 ABS BASOPHILS 0.0 10*3/uL Normal 0.0-0.2 [facility] Comment on above: Order Comment: No: D o not add to previous draw Performed By: #### 1 0070, 55674, 76091, 54197, 21893, 27393 #### [facility] [address] ABS IMM GRANS 0.0 10*3/uL Normal 0.0-0.2 [facility] Comment on above: Order Comment: No: D o not add to previous draw Performed By: #### 1 0070, 41157, 84103, 85852, 22663, 47749 #### [facility] [address] ABS NEUTROPHILS 3.2 10*3/uL Normal 1.6-7.6 [facility] Comment on above: Order Comment: No: D o not add to previous draw Performed By: #### 1 0070, 78723, 05291, 35933, 12631, 12008 #### [facility] [address] [place] [address], [facility] Basophils/100 WBC (Bld) 0.2 % Normal 0.0-1.0 [facility] Comment on above: Order Comment: No: D o not add to previous draw Performed By: #### 1 0070, 14060, 41765, 25219, 30932, 78706 #### [facility] [address] [place] [address], [facility] Eosinophils (Bld) [#/Vol] 0.0 10*3/uL Normal 0.0-0.5 [facility] Comment on above: Order Comment: No: D o not add to previous draw Performed By: #### 1 0070, 97033, 23586, 06574, 75939, 90575 #### [facility] [address] [place] [address], [facility] Eosinophils/100 WBC (Bld) 0.4 % Normal 0.0-6.0 [facility] Comment on above: Order Comment: No: D o not add to previous draw Performed By: #### 1 0070, 42431, 62164, 82424, 41739, 42634 #### [facility] [address] [place] [address], [facility] Erythrocyte distribution width (RBC) [Ratio] 13.0 % Normal 11.5-15.0 [facility] Comment on above: Order Comment: No: D o not add to previous draw Performed By: #### 1 0070, 64195, 99678, 80569, 82405, 59698 #### [facility] [address] [place] [address], [facility] Hematocrit (Bld) [Volume fraction] 34.4 % Low 36.0-45.0 [facility] Comment on above: Order Comment: No: D o not add to previous draw Performed By: #### 1 0070, 51344, 73092, 17162, 00768, 44638 #### [facility] [address] [place] [address], [facility] Hemoglobin (Bld) [Mass/Vol] 10.8 g/dL Low 12.0-15.0 [facility] Comment on above: Order Comment: No: D o not add to previous draw Performed By: #### 1 0070, 46006, 57569, 76341, 38491, 58474 #### [facility] [address] IMMATURE GRANS 0.4 % Normal 0.0-1.0 [facility] Comment on above: Order Comment: No: D o not add to previous draw Performed By: #### 1 0070, [id number], 34534, 70352, 87583, [id number] #### [facility] [address] Lymphocytes (Bld) [#/Vol] 1.2 10*3/uL Normal 1.2-4.0 [facility] Comment on above: Order Comment: No: D o not add to previous draw Performed By: #### 1 0070, [id number], 54609, 43933, 91909, 47408 #### [facility] [address] Lymphocytes/100 WBC (Bld) 25.7 % Normal 20.0-45.0 [facility] Comment on above: Order Comment: No: D o not add to previous draw Performed By: #### 1 0070, 08629, 26572, 76827, 60056, 58021 #### [facility] [address] [place] [address], [facility] MCH (RBC) [Entitic mass] 27.5 pg Normal 27.0-33.0 [facility] Comment on above: Order Comment: No: D o not add to previous draw Performed By: #### 1 0070, 80924, 06358, 96835, 83249, 50035 #### [facility] [address] MCHC (RBC) [Mass/Vol] 31.4 g/dL Low 32.0-35.0 [facility] Comment on above: Order Comment: No: D o not add to previous draw Performed By: #### 1 0070, 07520, 59922, 02685, 85309, 29170 #### [facility] [address] [facility] MCV (RBC) [Entitic vol] 87.5 fL Normal 82.0-98.0 [facility] Comment on above: Order Comment: No: D o not add to previous draw Performed By: #### 1 0070, 55609, 66739, 83937, 03039, 23747 #### [facility] [address] [facility] Monocytes (Bld) [#/Vol] 0.3 10*3/uL Normal 0.1-1.0 [facility] Comment on above: Order Comment: No: D o not add to previous draw Performed By: #### 1 0070, 61614, 45607, 35828, 49133, 74801 #### [facility] [address] [facility] MONOS 6.2 % Normal 5.0-12.0 [facility] Comment on above: Order Comment: No: D o not add to previous draw Performed By: #### 1 0070, 24202, 82042, 70786, 38843, 12466 #### [facility] [address] [facility] [place] [address], [facility] Neutrophils/100 WBC (Bld) 67.1 % Normal 40.0-72.0 [facility] Comment on above: Order Comment: No: D o not add to previous draw Performed By: #### 1 0070, 40773, 28433, 19915, 41042, 23002 #### [facility] [address] [place] [address], [facility] Nucleated RBC/100 WBC (Bld) [Ratio] 0 % Normal 0-0 [facility] Comment on above: Order Comment: No: D o not add to previous draw Performed By: #### 1 0070, 91591, 40891, 68670, 75495, 19579 #### [facility] [address] [place] [address], [facility] PLAT CNT 210 10*3/uL Normal 150-400 [facility] Comment on above: Order Comment: No: D o not add to previous draw Performed By: #### 1 0070, 20919, 65194, 49917, 85746, 29238 #### [facility] [address] [facility] [place] [address], [facility] RBC (Bld) [#/Vol] 3.93 10*6/uL Normal 3.80-5.00 [facility] Comment on above: Order Comment: No: D o not add to previous draw Performed By: #### 1 0070, 01039, 61010, 00906, 63814, 88351 #### [facility] [address] [place] [address], [facility] WBC (Bld) [#/Vol] 4.71 10*3/uL Normal 4.00-10.60 [facility] Comment on above: Order Comment: No: D o not add to previous draw Performed By: #### 1 0070, 64918, 17674, 36218, 71426, 44111 #### [facility] [address] [facility] [place] [address], [facility] Cardiovascular Lab Reporton 03-31-2020 Cardiovascular Lab Report [facility] Patient Name: Paulie [facility] S MR #: [id number] Department of Physician: Rebecca Weaver M.D. Medicine Service Date: 03/31/2020 Division of Birthdate: 1965 Cardiology Room #: 3AB 151191 Adult Cardiovascular Services [facility] [address] [place] [address] Cardiovascular Laboratory Report INDICATIONS FOR PACEMAKER PLACEMENT: [...] silk suture. They were connected to a Biotronik Edora dual-chamber pacing system. This was placed [...] the upper extremity. Electronically Signed by: Rebecca Weaver M.D. 04/03/2020 10:48 A Rebecca Weaver M.D. Date Dict: 03/31/2020/01:20 P/Rebecca Weaver M.D. Date Trans: 03/31/2020 03:35 P/mmo [id number] cc: Tony Hines M.D. Heart Failure/ Transplant Mailstop [address] [place] [address] Normal [facility] MAGNESIUM BLOODon 03-31-2020 Magnesium [Mass/Vol] 1.8 mg/dL Low 1.9-2.7 [facility] Comment on above: Order Comment: No: D o not add to previous draw Performed By: #### 1 0070, 95198, 47445, 61193, 97680, 16694 #### [facility] [address] PHOSPHORUS BLOODon 0 Phosphate [Mass/Vol] 2.7 mg/dL Normal 2.5-5.0 [facility] Comment on above: Order Comment: No: D o not add to previous draw Performed By: #### 1 0070, 36431, 94757, 78603, 81148, 87420 #### [facility] [address] PROTHROMBIN TIMEon 0 INR Coag (PPP) [Relative time] 1.11 {INR} Normal 0.91-1.16 [facility] Comment on above: Order Comment: No: D [...] CHEST 1995;108:[id number]. Performed By: #### 1 0070, 85218, 91219, 23556, 79971, 04982 #### [facility] [address] PT Coag (PPP) [Time] 14.3 s Normal 12.3-14.8 [facility] Comment on above: Order Comment: No: D o not add to previous draw Result Comment: ALL RESULTS MUST BE INTERPRETED WITH RESPECT TO BLOOD DRAWING ARTIFACT OR DILUTION ERROR OF ANTICOAGULANT AT THE TIME OF SAMPLING. Performed By: #### 1 0070, 07220, 81420, 54025, 42774, 28230 #### [facility] [address] *SARS-CoV-2 COVID-19on 03-30 [id number] Not Detected Normal Not Detected [facility] Comment on above: Order Comment: No: D o not add to previous draw Performed By: #### 1 0070, 61396, 38821, 73427, 40036, 09415 #### [facility] [address] APTTon 03-30-2020 aPTT Coag (Bld) [Time] 24.9 s Low 25.0-35.0 [facility] Comment on above: Order Comment: No: D [...] THIS PURPOSE. Performed By: #### 5 7307, 07843 #### [address] BASIC METABOLIC PANELon 03-03 Calcium [Mass/Vol] 8.9 mg/dL Normal 8.6-10.3 [facility] Comment on above: Order Comment: No: D o not add to previous draw Performed By: #### 1 0070, 74042, 44118, 99264, 85416, 93326 #### [facility] [address] [facility] [place] [address], [facility] Chloride [Moles/Vol] 110 mmol/L High 98-107 [facility] Comment on above: Order Comment: No: D o not add to previous draw Performed By: #### 1 0070, 43298, 88198, 27807, 16043, 31435 #### [facility] [address] [facility] [place] [address], [facility] CO2 [Moles/Vol] 26 mmol/L Normal 21-31 [facility] Comment on above: Order Comment: No: D o not add to previous draw Performed By: #### 1 0070, 26181, 87064, 39861, 98274, 14235 #### [facility] [address] [facility] [place] [address], [facility] Creatinine [Mass/Vol] 0.86 mg/dL Normal 0.60-1.20 [facility] Comment on above: Order Comment: No: D o not add to previous draw Performed By: #### 1 0070, 12866, 33292, 47346, 90637, 31740 #### [facility] [address] [place] [address], [facility] GFR/1.73 sq M predicted among blacks MDRD (S/P/Bld) [Vol rate/Area] mL/min/{1.73_m2} Normal >60 [facility] Comment on above: Order Comment: No: D o not add to previous draw Performed By: #### 1 0070, 47771, 41980, 81775, 90920, 12288 #### [facility] [address] [place] [address], [facility] GFR/1.73 sq M predicted among non-blacks MDRD (S/P/Bld) [Vol rate/Area] mL/min/{1.73_m2} Normal >60 [facility] Comment on above: Order Comment: No: D o not add to previous draw Performed By: #### 1 0070, 05036, 78137, 38661, 02759, 11309 #### [facility] [address] [place] [address], [facility] Glucose [Mass/Vol] 119 mg/dL High 70-100 [facility] Comment on above: Order Comment: No: D o not add to previous draw Performed By: #### 1 0070, 33150, 74761, 16464, 65462, 91152 #### [facility] [address] [place] [address], [place] Potassium [Moles/Vol] 3.5 mmol/L Normal 3.5-5.1 [facility] Comment on above: Order Comment: No: D o not add to previous draw Performed By: #### 1 0070, 99802, 85021, 78678, 08566, 81902 #### [facility] [address] [place] [address], [place] Sodium [Moles/Vol] 142 mmol/L Normal 136-145 [facility] Comment on above: Order Comment: No: D o not add to previous draw Performed By: #### 1 0070, 35883, 65913, 99755, 68380, 67131 #### [facility] [address] Urea nitrogen [Mass/Vol] 13 mg/dL Normal 7-25 [facility] Comment on above: Order Comment: No: D o not add to previous draw Performed By: #### 1 0070, 47853, 49364, 87987, 95451, 41992 #### [facility] [address] [place] [address], [facility] CBC W/DIFFon 03-30-2020 ABS BASOPHILS 0.0 10*3/uL Normal 0.0-0.2 [facility] Comment on above: Performed By: #### 5 0103 #### [facility] [address] ABS IMM GRANS 0.0 10*3/uL Normal 0.0-0.2 [facility] Comment on above: Performed By: #### 5 0103 #### [facility] [address] ABS NEUTROPHILS 5.7 10*3/uL Normal 1.6-7.6 [facility] Comment on above: Performed By: #### 5 0103 #### [facility] [address] [place] [address], [facility] Basophils/100 WBC (Bld) 0.0 % Normal 0.0-1.0 [facility] Comment on above: Performed By: #### 5 0103 #### [facility] [address] [place] [address], [facility] Eosinophils (Bld) [#/Vol] 0.0 10*3/uL Normal 0.0-0.5 [facility] Comment on above: Performed By: #### 5 0103 #### [facility] [address] [facility] [place] [place] [address], [facility] Eosinophils/100 WBC (Bld) 0.0 % Normal 0.0-6.0 [facility] Comment on above: Performed By: #### 5 3 #### [facility] [address] [facility]. [address] Erythrocyte distribution width (RBC) [Ratio] 12.9 % Normal 11.5-15.0 [facility] Comment on above: Performed By: #### 3 #### [facility] [address] [facility] [place] [address], [facility] Hematocrit (Bld) [Volume fraction] 36.1 % Normal 36.0-45.0 [facility] Comment on above: Performed By: #### 5 3 #### [facility] [address] [facility]. [address] Hemoglobin (Bld) [Mass/Vol] 11.5 g/dL Low 12.0-15.0 [facility] Comment on above: Performed By: #### 5 3 #### [facility] [address] [facility] [place] [address], [facility] IMMATURE GRANS 0.5 % Normal 0.0-1.0 [facility] Comment on above: Performed By: #### 5 3 #### [facility] [address] [facility] [place] [address], [facility] Lymphocytes (Bld) [#/Vol] 0.6 10*3/uL Low 1.2-4.0 [facility] Comment on above: Performed By: #### 5 3 #### [facility] [address] [place] [address], [facility] Lymphocytes/100 WBC (Bld) 9.3 % Low 20.0-45.0 [facility] Comment on above: Performed By: #### 5 102 #### [facility] [address] [facility]. [address] MCH (RBC) [Entitic mass] 27.4 pg Normal 27.0-33.0 [facility] Comment on above: Performed By: #### 5 3 #### [facility] [address] [facility] [address] MCHC (RBC) [Mass/Vol] 31.9 g/dL Low 32.0-35.0 [facility] Comment on above: Performed By: #### 3 #### [facility] [address] MCV (RBC) [Entitic vol] 86.0 fL Normal 82.0-98.0 [facility] Comment on above: Performed By: #### 5 102 #### [facility] [address] Monocytes (Bld) [#/Vol] 0.2 10*3/uL Normal 0.1-1.0 [facility] Comment on above: Performed By: #### 5 102 #### [facility] [address] MONOS 2.5 % Low 5.0-12.0 [facility] Comment on above: Performed By: #### 5 3 #### [facility] [address] Neutrophils/100 WBC (Bld) 87.7 % High 40.0-72.0 [facility] Comment on above: Performed By: #### 5 3 #### [facility] [address] Nucleated RBC/100 WBC (Bld) [Ratio] 0 % Normal 0-0 [facility] Comment on above: Performed By: #### 5 102 #### [facility] [address] [facility] [place] [address], [facility] PLAT CNT 261 10*3/uL Normal 150-400 [facility] Comment on above: Performed By: #### 5 0103 #### [facility] [address] [facility] [place] [address], [facility] RBC (Bld) [#/Vol] 4.20 10*6/uL Normal 3.80-5.00 [facility] Comment on above: Performed By: #### 5 0103 #### [facility] [address] [facility] [place] [place] [address], [facility] WBC (Bld) [#/Vol] 6.47 10*3/uL Normal 4.00-10.60 [facility] Comment on above: Performed By: #### 5 0103 #### [facility] [address] [facility] [place] [address], [facility] FREE T4on 03-30-2020 Free T4 [Mass/Vol] 1.48 ng/dL Normal 0.71-1.85 [facility] Comment on above: Performed By: #### 1 0070, 92349, 83136, 48106, 12159, 68236 #### [facility] [address] [facility] [place] [address], [facility] MAGNESIUM BLOODon 03-30-2020 Magnesium [Mass/Vol] 2.0 mg/dL Normal 1.9-2.7 [facility] Comment on above: Order Comment: No: D o not add to previous draw Performed By: #### 1 0070, 96579, 06419, 36180, 73749, 92643 #### [facility] [address] [facility] [place] [address], [facility] PHOSPHORUS BLOODon 0 Phosphate [Mass/Vol] 2.8 mg/dL Normal 2.5-5.0 [facility] Comment on above: Order Comment: No: D o not add to previous draw Performed By: #### 1 0070, 69176, 60310, 43693, 55597, 94087 #### [facility] [address] [facility] [place] [address], [facility] PROTHROMBIN TIMEon 0 INR Coag (PPP) [Relative time] 1.21 {INR} High 0.91-1.16 [facility] Comment on above: Order Comment: No: D [...] CHEST 1995;108:231S-246S. Performed By: #### 5 7307, 14724 #### [facility] [address] [facility] [place] [address], [facility] PT Coag (PPP) [Time] 15.4 s High 12.3-14.8 [facility] Comment on above: Order Comment: No: D o not add to previous draw Result Comment: ALL RESULTS MUST BE INTERPRETED WITH RESPECT TO BLOOD DRAWING ARTIFACT OR DILUTION ERROR OF ANTICOAGULANT AT THE TIME OF SAMPLING. Performed By: #### 5 7307, 61162 #### [facility] [address] [facility] [place] [address], [facility] TROPONIN-Ion 03-30-2020 Troponin I.cardiac [Mass/Vol] 0.02 ng/mL Normal 0.00-0.04 [facility] Comment on above: Order Comment: No: D o not add to previous draw Result Comment: REFE RENCE RANGES: 0.00 - 0.04 ng/ml NORMAL 0.05 - 0.50 ng/ml INDETERMINATE > 0.50 ng/ml CONSISTENT WITH AN M.I. Performed By: #### 1 0070, 90611, 50225, 66223, 29988, 08687 #### [facility] [address] Troponin I.cardiac [Mass/Vol] 0.04 ng/mL Normal 0.00-0.04 [facility] Comment on above: Order Comment: No: D o not add to previous draw Result Comment: REFE RENCE RANGES: 0.00 - 0.04 ng/ml NORMAL 0.05 - 0.50 ng/ml INDETERMINATE > 0.50 ng/ml CONSISTENT WITH AN M.I. Performed By: #### 3 5200 #### [facility] [address] [facility]. [address] Troponin I.cardiac [Mass/Vol] 0.04 ng/mL Normal 0.00-0.04 [facility] Comment on above: Order Comment: No: D o not add to previous draw Result Comment: REFE RENCE RANGES: 0.00 - 0.04 ng/ml NORMAL 0.05 - 0.50 ng/ml INDETERMINATE > 0.50 ng/ml CONSISTENT WITH AN M.I. Performed By: #### 1 0070, 91492, 94637, 70861, 14583, 96704 #### [facility] [address] [facility] [place] [address], [facility] TSH3 WITH REFLEX FT4on 03-30 TSH 3RD GENERATION 0.02 uIU/mL Low 0.34-5.60 [facility] Comment on above: Performed By: #### 1 0070, 78140, 24677, 62580, 66835, 45262 #### [facility] [address] [place] [address], [facility] Vital Signs Date Time Vital Sign Value Performing Clinician Faci lity 11-11-2022 15:32-0500 Body temperature 98.1 [degF] MD Tony Amaya Work Phone: [facility] 08-12-2022 15:32-0500 Diastolic blood pressure 69 mm[Hg] MD Tony Amaya Work Phone: [facility] 08-12-2022 15:32-0500 Heart rate 78 /min MD Tony Amaya Work Phone: [facility] 08-12-2022 15:32-0500 Respiratory rate 16 /min MD Tony Amaya Work Phone: [facility] 08-12-2022 15:32-0500 SaO2% (BldA) [Mass fraction] 94 % MD Tony Amaya Work Phone: [facility] 08-12-2022 15:32-0500 Systolic blood pressure 129 mm[Hg] MD Tony Amaya Work Phone: [facility] 08-12-2022 11:00-0500 Inhaled oxygen flow rate 3 L/min MD Tony Amaya Work Phone: [facility] 08-11-2022 12:39-0500 Body height 152.4 cm MD Tony Amaya Work Phone: [facility] 08-11-2022 06:00-0500 Body weight 44.9 kg MD Tony Amaya Work Phone: [facility] 08-10-2022 15:03-0500 Body mass index (BMI) [Ratio] 19.1 kg/m2 MD Tony Amaya Work Phone: [facility] 08-03-2022 14:27-0400 Body weight 0 kg MD Tony Amaya Work Phone: [facility] Encounters Encounter Date Encounter Type Care Provider Facility Start: 02-01-2024 End: 02-02-2024 ambulatory TONY AMAYA [facility] Start: 01-02-2024 Emergency department patient visit GURDEEP KIRKPATRICK [facility] Start: 01-01-2024 End: 01-05-2024 Evaluation and management of inpatient PAM WAY [facility] Start: 10-24-2023 End: 10-24-2023 ambulatory [facility] Start: 10-23-2023 ambulatory Alejandro Flaherty acility:[facility] Start: 04-26-2023 End: 04-26-2023 ambulatory [facility] Start: 01-03-2023 End: 01-07-2023 Evaluation and management of inpatient DR TONY AMAYA . Facility:[facility] Start: 11-01-2022 End: 11-02-[address] TONY AMAYA . Facility:[facility] Start: 09-30-2022 End: 10-01-[address] ROSALINA BAUTISTA Facility: Start: 09-02-2022 End: 09-02-2022 ambulatory MD Tony Amaya Work Phone: [facility] Work Phone: Start: 09-02-2022 End: 09-02-2022 Patient encounter procedure MD Tony Amaya Work Phone: [facility] Start: 08-25-2022 End: 08-25-[address] ROSALINA BAUTISTA Facility: Start: 08-10-2022 End: 08-12-2022 Admission to same day surgery center MD Tony Amaya Work Phone: [facility] Start: 08-10-2022 End: 08-12-2022 ambulatory MD Tony Amaya Work Phone: [facility] Work Phone: Start: 08-08-2022 End: 08-08-2022 ambulatory MD Tony Amaya Work Phone: [facility] Work Phone: Start: 08-08-2022 End: 08-08-2022 Departed Referred MD Tony Amaya Work Phone: [facility] [place] Start: 08-05-2022 End: 08-05-2022 ambulatory MD Tony Amaya Work Phone: [facility] Work Phone: Start: 08-05-2022 End: 08-05-2022 Patient encounter procedure MD Tony Amaya Work Phone: [facility]-Pre[facility] Start: 07-30-2022 End: 07-30-[address] ROSALINA BAUTISTA Facility:[facility] Start: 07-04-2022 End: 07-06-[address] TONY AMAYA . Facility:[facility] Start: 07-04-2022 End: 07-04-[address] ALBERTO FERRO Facility:[facility] Start: 06-29-2022 Encounter for preprocedural laboratory examination NADEGE GARDNER . [facility] Start: 06-27-2022 End: 06-28-2022 ambulatory NADEGEMICHAEL GARDNER . Facility:[facility] Start: 06-27-2022 End: 06-28-2022 Encounter for preprocedural laboratory examination NADEGEMICHAEL GARDNER . Facility:[facility] Start: 06-22-2022 End: 06-23-2022 ambulatory NADEGE GARDNER . Facility:[facility] Start: 06-20-2022 End: 06-20-[address] TONY AMAYA . Facility:[facility] Start: 06-20-2022 End: 06-21-2022 ambulatory NADEGE GARDNER . Facility:[facility] Start: 03-03-[address] TONY AMAYA . Facili ty:[facility] Start: 03-02-2022 End: 03-03-[address] TONY AMAYA . Facility:[facility] Start: 01-18-2022 End: 01-21-2022 Evaluation and management of inpatient DR TONY AMAYA . Facility:[facility] Start: 03-30-2020 End: 04-06-2020 Evaluation and management of inpatient EMMY TOLEDO Facility:[facility] Procedures Date Procedure Procedure Detail Performing Clinician Start: 09-02-2022 Plain chest X-ray MD Torres Work Phone: Start: 08-12-2022 End: 08-12-2022 Plain chest X-ray MD Tony Amaya Work Phone: Start: 08-11-2022 Plain chest X-ray MD Torres Work Phone: Start: 08-10-2022 Acid fast bacilli culture MD Tony Amaya Work Phone: Start: 08-10-2022 Acid fast stain method MD Tony Amaya Work Phone: Start: 08-10-2022 Aerobic microbial culture MD Tony Amaya Work Phone: Start: 08-10-2022 Anaerobic microbial culture MD Tony Amaya Work Phone: Start: 08-10-2022 Investigation of transfusion reaction MD Tony Amaya Work Phone: Start: 08-10-2022 Mycology culture MD French perez Jesúsgabby Work Phone: Start: 08-10-2022 Plain chest X-ray MD Torres Work Phone: Start: 08-10-2022 Opening of chest MD French perez Jose Luis Work Phone: Start: 08-05-2022 Urine culture MD [...] MARTHA Acid fast bacilli culture MD Tony Amaya Work Phone: Acid fast stain method MD Torres Work Phone: Aerobic microbial culture MD Tony Amaya Work Phone: Anaerobic microbial culture MD Tony Amaya Work Phone: Urine culture MD Tony Amaya Work Phone: Plan of Treatment Date Care Activity Detail Author Start: 08-12-2022 [facility] Start: 08-10-2022 Consultation [facility] Start: 08-10-2022 End: 08-10-2022 [facility] Acid Fast Bacilli Cu lture & Smear Acid Fast Bacilli Culture & Smear [facility] Anaerobic microbial culture Anaerobic Culture [facility] Bacteria identified in Urine by Culture Urine Culture [facility] Chlamydia trachomati s [Presence] in Unspecified specimen by Organism specific culture [facility] Work Phone: Chlamydia trachomati s [Presence] in Unspecified specimen by Organism specific culture [facility] Fungal Culture Result 1 Fungal C ulture Result 1 [facility] Fungus identified in Unspecified specimen by Culture [facility] [facility] Work Phone: Mycobacterium sp identified in Unspecified specimen by Organism specific culture [facility] Work Phone: Mycology Culture Mycology Culture [facility] Patient referral [facility] Work Phone: [facility] Payers Date Payer Category Payer Self-pay 1965 Unknown [id number] 2.16.8 [id number] 1965 Unknown [id number] 2.16.84 [id number] 1965 Unknown [id number] 2.16.84 0.1.615076.3.579.2.593 1965 Unknown [id number] 2.16.84 0.1.098181.3.579.2.593 1965 Unknown [id number] 2.16.84 0.1.121816.3.579.2.593 1965 Unknown [id number] 2.16.84 0.1.263934.3.579.2.593 1965 Unknown [id number] 2.16.84 0.1.006812.3.579.2.593 1965 Unknown [id number] 2.16.84 0.1.415875.3.579.2.593 1965 Unknown [id number] 2.16.84 0.1.764882.3.579.2.593 1965 Unknown [id number] 2.16.84 0.1.200257.3.579.2.593 1965 Unknown [id number] 2.16.84 0.1.784464.3.579.2.593 1965 Unknown [id number] 2.16.84 0.1.678772.3.579.2.593 1965 Unknown [id number] 2.16.84 0.1.259420.3.579.2.593 1965 Unknown [id number] 2.16.84 0.1.810390.3.579.2.593 1965 Unknown [id number] 2.16.84 [id number] 1960 Self-pay [id number] 1960 Unknown [id number] Unknown [id number] 2.16.8 [id number] Social History Date Type Detail Facility Tobacco smoking stat [facility] Unknown if ever smoked [facility] Work Phone: Start: 1965 Sex Assigned At Female F [facility] Start: 08-10-2022 [facility] Medical Equipment Procedure Code Equipment Code Equipment Origin al Text Equipment Identifier Dates Thoracotomy Surgical adhesive/sealant, human-derived ([id number] [facility] Start: 08-10-2022 Goals Date Patient Goal Desired Activity /State Functional Status Date Assessment Result Facility 08-12-2022 Functional status [facility] at [facility] Work Phone: Mental Status Date Assessment Result Facility 08-12-2022 Cognitive function Cognitive Sta tus Patient at Baseline [facility] Work Phone: Clinical Notes 08-10-2022 to 01-05-2024 Note Date & Type Note Facility 01-05-2024 Note REILLY rec'd consult for DME and 24 hr assist at home. REILLY met with patient as she lives with her sons at home in a 2 story home. She states she has talked to her mom about going to her home which is a bi level but once up 5 steps she can stay on 1 level throughout the day without full flight needed daily at her own home. Patient states her mother is retired and is home all day. Pt also has 2 son's and her partner that are in/out of the home when they don't work. She denied need for HHC. She states she has dogs and she does not feel it would be necessary. She states her mom can be with her as she is retired and she knows she cannot drive until after MRI and further recommendations after reading. She states her mother can drive her to appts and where she needs to go and her son's can find another way to get to work. Patient voiced understanding that shower chair was an uncovered item under her insurance. She voiced understanding and ability to buy out of pocket without issue. Patient is agreeable to outpt therapy if physician feels needed. SW advised physician of above and requested orders if she would like patient to have outpt therapy. Awaiting response. Patient has family that can pick her up to transport home. No other needs known to this worker. 4:55pm REILLY called by RN. 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 SW asked how the information changed so drastically in the last 5 hours. She tried telling this worker that maybe she misunderstood what she was stating since she doesn't have her teeth in. REILLY advised that she had asked her multiple ways and patient was very clear in her answer earlier as to her mother's status of not working -specifically stating retired and home 24/04. Patient refused to try to leandro her mother while this worker was in the room stating that she would not be available. REILLY asked about her partner and patient states she is now anticipated to be here by 6pm. RN present in the room during this 4:55pm conversation. RN to talk to patients partner when she arrives to discuss their need to have the 24/04 coverage at home. Son's and mother do not work weekends and patient is now stating that her son's can request days off. Patient to discharge home this evening. [facility] 01-05-2024 Note Occupational Therapy Occupational Therapy Treatment Patient Name: Emigdio Eli : 1965 Today's Date: 01/05/2024 01/05/24 0852 Time Calculation Start Time 0852 Stop Time 0918 Time Calculation (min) 26 min Problem List Patient Active Problem List Diagnosis Abdominal pain Constipated Dyspepsia COPD (chronic obstructive pulmonary disease) ([facility]) CURRAN (dyspnea on exertion) Pacemaker Hyperlipidemia Dizziness Unspecified severe protein-calorie malnutrition ([facility]) Treatment: 01/05/24851 OT Last Visit OT Received On 01/05/24 General Subjective Pt pleasant, I need to go the bathroom. Family/Caregiver Present No Pain Assessment Pain Assessment 0-10 Pain Score 6 Pain Location Head (Headache) Cognition Overall Cognitive Status WFL Orientation Level Oriented X4 Cognition Comments Verbal cues for initiation, sequencing of tasks General Assessment Hearing WFL Grooming Grooming Level of Assistance Setup;Minimal verbal cues Grooming Where Assessed Edge of bed Grooming Comments Hair grooming; verbal cues for initiation UE Bathing UE Bathing Level of Assistance Setup;Minimal verbal cues UE Bathing Where Assessed Edge of bed UE Bathing Comments UBB 100% w/ increased time, verbal cues for initiation, sequencing LE Bathing LE Bathing Level of Assistance Setup;Minimal verbal cues LE Bathing Where Assessed Edge of bed LE Bathing Comments Pt completes bathing of BLE-feet, increased time; verbal cues for initiation UE Dressing UE Dressing Level of Assistance Minimum assistance UE Dressing Where Assessed Edge of bed UE Dressing Comments Min A for snaps, ties and line managment LE Dressing LE Dressing Yes Sock Level of Assistance Setup LE Dressing Where Assessed Edge of bed LE Dressing Comments w/ increased time patient doffs dirty socks, dons clean socks Toileting Toileting Level of Assistance Setup Where Assessed Toilet Toileting Comments Pt completes cristina-hygiene and clothing managment w/ setup from automobile and property underwriter Functional Standing Tolerance Time untimed Activity bed<>toilet, toileting Functional Standing Tolerance Comments unsteadiness noted, no LOB Static Sitting Balance Static Sitting-Balance Support No upper extremity supported;Feet supported Static Sitting-Level of Assistance Independent Dynamic Sitting Balance Dynamic Sitting-Balance Support No upper extremity supported;Feet supported Dynamic Sitting-Balance Forward lean;Reaching for objects;Reaching across midline;Trunk control activities Dynamic Sitting Balance-Level of Assistance Independent Dynamic Sitting-Comments @ EOB for bathing. grooming and dressing Static Standing Balance Static Standing-Balance Support Unilateral upper extremity supported;With device (IV pole) Static Standing-Level of Assistance Close supervision Static Standing-Comment/Number of Minutes SBA for tremors/unsteadiness at intervals Dynamic Standing Balance Dynamic Standing-Balance Support Unilateral upper extremity supported;With device (IV pole) Dynamic Standing-Balance Forward lean;Reaching for objects;Reaching across midline Dynamic Standing Balance-Level of Assistance Close supervision Dynamic Standing-Comments Clothing managment Bed Mobility Bed Mobility Yes Bed Mobility 1 Bed Mobility From 1 Supine Bed Mobility Type 1 To and from Bed Mobility to 1 Short sit Level of Assistance 1 Independent Bed Mobility Comments 1 HOB elevates 35* Transfers Transfer Yes Transfer 1 Transfer From 1 Sit;Bed Transfer Type 1 To and from Transfer to 1 Stand;Toilet Technique 1 Sit to stand;Stand to sit Transfer Device 1 none Transfer Level of Assistance 1 Contact guard Trials/Comments 1 CGA during transfer 2/2 unsteadiness/no LOB noted Activity Tolerance Ambulation comments Pt walks 18 feet 2x Activity Tolerance Comments Pt reports headache during treatment session. Other Activity Other Activity 1 Pt left in bed with call light and needs accessible. OT Assessment OT Impairments Decreased ADL status;Decreased endurance;Decreased functional mobility;Decreased trunk control for functional activities OT Assessment/TATIANA Summary Pt would benefit from continued skilled therapy to address decreased activity tolerance. OT Education/Comments Activity promotion, safety awareness Plan Level of assist 1 assist Treatment Interventions ADL retraining;Functional transfer training;Endurance training;Patient/family training;Neuromuscular reeducation;Compensatory technique education OT Plan Skilled OT OT Frequency 3 times per week until discharge & PRN OT Discharge Recommendations Home Equipment Recommended shower chair OT - Discharge Recommendations Placed Yes Outcome Assessments 01/05/24 1000 AM-PAC 6 Clicks Putting on and taking off regular lower body clothing? 3 Bathing(Including washing,rinsing,drying)? 3 Toileting, which includes (more content not included)... [facility] 01-04-2024 Note Hospital Medicine Daily Progress Note - 01/04/2024 1:18 PM; Room: [address] [place] [address] Admission: 01/01/2024 9:17 PM; Length of stay: 0 days THE HOSPITALIST TEAM PREFERS TO USE Command Information CHAT FOR COMMUNICATION 7AM-7PM. IF I DO NOT RESPOND WITHIN 15 MINUTES, PLEASE PAGE ME/CALL THROUGH THE [employer]ILL ROLLER. FROM 7PM-7AM, PLEASE PAGE [phone](COVR) Code Status: Full Code Barriers to Discharge: dizziness, diarrhea Expected Discharge Date: 01/03 Discharge Destination: home Overview Patient is seen for evaluation and management of weakness, falls, dizziness. Subjective Seen twice today. First time this morning complains of diarrhea but we have not witnessed it. Told her she has to call nursing so we can see the diarrhea. Reports it is yellow and foul smelling. States she is still dizzy yet getting up to the bathroom herself. States she has a poor appetite but she does have an empty tray when I saw her at lunch. I did inquire about having an MRI done while here but it was denied due to not having an emergent need and I explained that to the patient. Physical Exam Visit Vitals BP 112/69 Pulse 80 Temp 36.9 ???C (98.4 ???F) Resp 18 Intake/Output Summary (Last 24 hours) at 01/04/2024 1318 Last data filed at 01/04/2024 1134 Gross per 24 hour Intake 4613.33 ml Output -- Net 4613.33 ml Physical Exam Constitutional: Appearance: Normal appearance. HENT: Head: Normocephalic. Mouth/Throat: Mouth: Mucous membranes are moist. Eyes: Extraocular Movements: Extraocular movements intact. Pupils: Pupils are equal, round, and reactive to light. Cardiovascular: Rate and Rhythm: Normal rate and regular rhythm. Pulmonary: Effort: Pulmonary effort is normal. Abdominal: General: Abdomen is flat. Skin: General: Skin is warm. Neurological: General: No focal deficit present. Mental Status: She is alert. Psychiatric: Mood and Affect: Mood normal. Estimated body mass index is 17.67 kg/m??? as calculated from the following: Height as of this encounter: 1.524 m (5'). Weight as of this encounter: 41.1 kg (90 lb 8 oz). Active Inpatient Problems Principal Problem: Dizziness Active Problems: Unspecified severe protein-calorie malnutrition (CMS/HCC) Assessment and Plan Dizziness/weakness - neuro did see in ER and reported likely vertigo related to nausea - consult PT/OT -Recommend that patient follows up with previous ordered MRI brain w/wo contrast as outpatient - will need to follow with Dr. Amaya - will schedule her meclizine - MRI scheduled outpt 01/31 Diarrhea - will start lactobacillus - stool culture - unable to obtain c diff since no documented stools in chart B12 deficiency - B12 148 - will give B12 injection today - start b12 daily Hypothyroid - cont synthroid History of heart block - Dr. Weaver placed biotronik PM 2019 - last interrogation 10/2023 GERD - cont ppt COPD - stable Hyperlipidemia - cont statin Severe protein calorie malnutrition r/t acute illness (dizzy and nausea) aeb wt loss >7.5% in past 3 months and <50% energy intake compared to estimated needs for >5 days - BMI 17 - nutrition following VTE Prophylaxis: Heparin subcutaneous Scheduled Meds buPROPion XL, 300 mg, oral, Daily cetirizine, 10 mg, oral, Daily cyanocobalamin, 1,000 mcg, intramuscular, q30 days cyanocobalamin, 1,000 mcg, oral, Daily heparin (porcine), 5,000 Units, subcutaneous, q12h KISHAN lamoTRIgine, 50 mg, oral, Daily levothyroxine, 125 mcg, oral, Daily before breakfast meclizine, 25 mg, oral, TID pantoprazole, 40 mg, oral, BID AC simvastatin, 20 mg, oral, Nightly sodium chloride, 100 mL/hr, Last Rate: 100 mL/hr (01/04/24 1134) Pertinent Investigations Hematology: Results from last 7 days Lab Units 01/03/24 0446 01/02/24 0811 WBC AUTO 10*3/uL 2.50* 3.38* HEMOGLOBIN g/dL 13.1 13.9 HEMATOCRIT % 41.4 44.0 MCV fL 90.2 91.9 PLATELETS AUTO 10*3/uL 203 201 Chemistry: Results from last 7 days Lab Units 01/03/24 0717 01/02/24 0922 01/01/24 2220 SODIUM mmol/L 140 141 140 POTASSIUM mmol/L 3.5 3.6 3.8 CHLORIDE mmol/L 109* 109* 106 CO2 mmol/L 26 28 24 BUN mg/dL 6* 7 10 CREATININE mg/dL 0.71 0.82 0.82 GLUCOSE mg/dL 89 96 86 MAGNESIUM mg/dL 1.9 -- 2.1 CALCIUM mg/dL 8.3* 8.6 9.6 Results from last 7 days Lab Units 01/01/24 2220 AST U/L 20 ALT U/L 10 ALK PHOS U/L 81 BILIRUBIN TOTAL mg/dL 0.5 LIPASE U/L 47 Historical Values: (Includes values prior to this admission) Lab Results Component Value Date TSH 0.01 (L) 01/02/2024 FREET4 1.66 01/02/2024 Lab Results Component Value Date [id number] 148 (L) 01/03/2024 Imaging ECG 12 lead Atrial-paced rhythm Right axis deviation Pulmonary disease pattern Abnormal ECG When compared with ECG of 30-MAR-2020 12:22, Electronic atrial pacemaker has replaced Sinus rhythm Vent. rate has increased BY 26 BPM QRS duration has decreased Nonspecific T wave abn (more content not included)... [facility] 01-03-2024 Note Physical Therapy Mckenzie wright Patient Name: Emigdio Eli Today's Date: 01/03/2024 Admit Date: 01/01/2024 01/03/24 1152 Time Calculation Start Time 1032 Stop Time 1043 Time Calculation (min) 11 min PT Evaluation Time Entry PT Evaluation (Moderate) Time Entry 11 History of present illness Patient is a 58 y.o. female admits w/ 2 wk h/o dizziness, vomiting, diarrhea. Has had multiple falls. She experiences intermittent dizziness, described as a sensation of the room spinning, which worsens with changes in position but also occurs while at rest. She denies experiencing chest pain and shortness of breath but reports abdominal discomfort along with nausea and vomiting. No improvement w/ recent start of Meclazine Patient described incident when she was driving her sons to work and became dizzy. She pulled over and they were able to get her home. She states she was dizzy from about noon to 6pm, irrespective of activity. Dizziness began when seated. Past Medical History COPD, hypothyroidism, pacemaker, colitis, cholecystectomy, bipolar depression Current Diagnoses Dizziness, vomiting, diarrhea Following session: Following session: Pt left up in bedside chair, call light w/in reach, RN aware PRIOR LEVEL OF FUNCTION obtained per Chart Vision: WNL Hearing: WNL Mobility: ambulates household distances with no assistive device and uses no assistive device for community distances. ADLs: independent with grooming, bathing, and dressing IADLs/household management: independent with cooking, laundry, and cleaning Transportation: Patient reports she drives her sons to work, about 10 min from home; they do not drive Home set-up Patient lives with 2 adult sons, both work in a 2 story home with 4 steps to enter Bedroom location: 1st floor set-up Bathroom location: 1st floor 1/2 bath with full bath upstairs with tub/shower combination Equipment: Rollator Support system Family OBJECTIVE ASSESSMENT/PHYSICAL EXAM Cognition Overall Cognitive Status: Impaired Arousal/Alertness: Appropriate responses to stimuli Orientation Level: Oriented x4 Following Commands: Follows one-step commands consistently without difficulty Safety Judgment: Decreased awareness of safety and Decreased awareness of need for assistance Attention Span: Attends with cues to redirect Memory: Appears intact Problem Solving: Assistance required to identify errors made, Assistance required to generate solutions, and Assistance required to implement solutions Communication: Intact Pain: Denies pain Sensation: Reports occasional numbness in fingers; denies current symptoms Edema: WNL Coordination: WNL; finger-thumb opposition, heel to juarez Tone: WNL Precautions IV, telemetry, fall risk seizure, isolation for r/o C-diff Objective assessment Bed mobility Not performed Transfers Sit to stand: stand-by assist and Stand to sit: stand-by assist Gait Patient ambulates 40 feet, with no device, and stand-by assist Patient appears to be guarded during ambulation, decreased arm swing, mid-height UE guarding; slow pace, decreased step height and length Stairs Not performed Endurance No SOB or other signs of fatigue observed Balance Sitting: patient able to sit and reach within base of support without loss of balance with independent Standing: patient able to stand with no assistive device) and stand-by assist assistance Posture WNL ROM UE ROM: WNL LE ROM: WNL Strength Functional strength: see bed mobility and transfer comments above. UE strength: WNL L shoulder flexion 4/5, R 5/5; all else equal bilaterally LE strength: WNL Core strength: WNL Education Verbal, Feedback during session, Functional mobility, Safety, and Progression/Return to prior level of activity 01/03/24 1100 6 Clicks (Mobility) Help from another person turning from your back to your side while in a flat bed without using bedrails 4 Help from another person moving from lying on your back to sitting on the side of a flat bed without using bedrails 4 Help from another person moving to and from a bed to a chair (including a wheelchair) 3 Help from another person standing up from a chair using your arms (e.g. wheelchair or bedside chair) 3 Help from another person to walk in hospital room 3 Help from another person climbing 3-5 steps with a railing 3 Mobility 6 Clicks T-Score 20 Assessment Patient presents with limited functional mobility secondary to decreased activity tolerance d/t dizziness, gait abilities, and gait/balance impairments, and generalized weakness, and multiple co-morbidities. These impairments limit the patient's ability to perform daily tasks including walking, bathing/dressing, cooking, cleaning/housework, performing basic ADLs, performing transfers, walking community distances. Skilled PT to address impairments and facilitate returning to/exceedi (more content not included)... [facility] 01-03-2024 Note Adult Nutrition Asse ssment: Name: Emigdio Eli Date: 1965 Date of Visit: 01/03/24 Admission Dx: Dizziness [R42] Nausea and vomiting, unspecified vomiting type [R11.2] Reason for assessment: high risk and MD referral HR: po intake, BMI MD Consult: underweight Information obtained from: patient, medical record, and nursing Past Medical History: Diagnosis Date Abnormal ECG COPD (chronic obstructive pulmonary disease) ([facility]) Hyperlipidemia Current Medications: buPROPion XL, 300 mg, oral, Daily cetirizine, 10 mg, oral, Daily cyanocobalamin, 1,000 mcg, intramuscular, q30 days cyanocobalamin, 1,000 mcg, oral, Daily heparin (porcine), 5,000 Units, subcutaneous, q12h KISHAN lamoTRIgine, 50 mg, oral, Daily levothyroxine, 125 mcg, oral, Daily before breakfast pantoprazole, 40 mg, oral, BID AC potassium chloride CR, 20 mEq, oral, Once simvastatin, 20 mg, oral, Nightly sodium chloride, 100 mL/hr, Last Rate: 100 mL/hr (01/03/24 0329) Labs: 0 Lab Value Date/Time POCGLU 134 (H) 04/02/2020 1054 BUN 6 (L) 01/03/2024 0717 CREATININE 0.71 01/03/2024 0717 NA 140 01/03/2024 0717 K 3.5 01/03/2024 0717 PHOS 3.1 04/02/2020 0521 MG 1.9 01/03/2024 0717 HGB 13.1 01/03/2024 0446 WBC 2.50 (L) 01/03/2024 0446 I/O: Intake/Output Summary (Last 24 hours) at 01/03/2024 1022 Last data filed at 01/02/2024 1326 Gross per 24 hour Intake 870 ml Output -- Net 870 ml Allergies: Allergies Allergen Reactions Compazine [Prochlorperazine] Sulfa (Sulfonamide Antibiotics) Lactose Intolerance reported by pt: avoids cow's milk and ice-cream, all other dairy products are okay and will not cause her GI upset. Kitchen informed. Nutrition Problems: -Swallowing Assessment: Denies issues swallowing , swallow screen 4/2. -Mouth: Missing teeth - avoids some items 2/2 difficulty chewing such as tough meats. She does consume ground meats and other sources of protein (yogurt, cottage cheese). Pt would like to remain on regular diet. -Abdominal Assessment: Denies any current N/V/C/D. 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 Last BM and emesis were 4/ per pt report. -Appetite: poor -Cognition: A/O x4 -Nutrition deficits prior to admission: Calories and Protein -Skin: intact Nutrition Data/Clinical Indicators of Nutrition Status: Height: 152.4 cm (5') Weight: 41.1 kg (90 lb 8 oz) BMI (Calculated): 17.67 Wt change: Pt endorses wt loss over past few weeks 2/2 poor intakes. Pt does not weigh self at home and is unaware of UBW. Wt Readings from Last 10 Encounters: 01/03/24 41.1 kg (90 lb 8 oz) 10/24/23 44.5 kg (98 lb) 04/26/23 44.5 kg (98 lb) IBW: 45.5 kg Low BMI: <18.5 if Weight change: 7.5% (3.4 kg) in past 3 months Severity of weight change: severe Nutrition Assessment: Nutrition history: Pt assessed today for HR and MD consult. 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 Because of these symptoms, her appetite has been decreased and she has not been eating well. She reports lactose intolerance but only avoids cow's milk and ice-cream; she can tolerate other lactose containing products without symptoms. She has good access to food but generally does not each much throughout the day, usually only 1 meal. B: banana and D: snacks or cooked meal if she is up for making something. She does not use ONS and states this is because of her lactose intolerance. Informed pt that majority of protein shakes are compliant with lactose intolerance. She voiced understanding but was not interested in trying these during hospital stay. She was accepting of high protein snacks and agreeable to order something with each meal time. Dietary Orders (From admission, onward) Start Ordered 01/02/24 1806 Special Kitchen Request Once Comments: Meatloaf Mac and Cheese Chocolate Chip cookie Sprite 01/02/24 1805 01/02/24 1328 Special Kitchen Request Once Comments: Tomato Soup Grilled Cheese Sprite 01/02/24 1327 01/02/24 0045 Regular Diet Diet effective now Question: Room Service? Answer: Yes 01/02/24 0045 Meal Intake: Pt reports consumption of a small amount of macaroni and cheese last night, nothing yet this AM. She was browsing menu and agreeable to order breakfast. Nutrition Risk: High Nutrition Needs: (consideration: pcm) Needs based on: actual body weight Calorie needs: 1635-3915 kcals/day based on Equation: 28-32 kcal/kg MSJ x 1.3 for underweight BMI = 1177 kcal/day Protein needs: 49-58 g/day based on 1.2-1.4 g/kg Fluid needs: 1233 ml/day based on 30 ml/kg Nutrition Diagnosis: Severe protein calorie malnutrition r/t acute illness (dizzy and nausea) aeb wt loss >7.5% in past 3 months and <50% energy intake compared to estimated needs for >5 days Malnutrition Assessment: Assessment Clinical Indicators of Malnutrition: poor appetite, low BMI <18.5 if < 70 yrs old, unintentional weight loss, reduced energ (more content not included)... [facility] 01-03-2024 Note Hospital Medicine Daily Progress Note - 01/03/2024 9:20 AM; Room: [facility]9/4179- Admission: 01/01/2024 9:17 PM; Length of stay: 0 days THE HOSPITALIST TEAM PREFERS TO USE Command Information CHAT FOR COMMUNICATION 7AM-7PM. IF I DO NOT RESPOND WITHIN 15 MINUTES, PLEASE PAGE ME/CALL THROUGH THE HOT MILL ROLLER. FROM 7PM-7AM, PLEASE PAGE [phone](COVR) Code Status: Full Code Barriers to Discharge: PT/OT Expected Discharge Date: 01/03 Discharge Destination: pending PT recs Overview Patient is seen for evaluation and management of weakness, falls, dizziness. Subjective Up in chair. Working on ordering breakfast. Ate a small amount of macaroni and cheese last night. States dizziness better and now light head only. Reports she feels 40% better today. Reports she lives in the basement but bathroom on 1st floor and she has to walk 15 stairs to get to bathroom. Reports she is alone 0830 until family gets home from work. Physical Exam Visit Vitals BP 112/73 Pulse 74 Temp 36.6 ???C (97.9 ???F) Resp 16 Intake/Output Summary (Last 24 hours) at 01/03/2024 0920 Last data filed at 01/02/2024 1326 Gross per 24 hour Intake 870 ml Output -- Net 870 ml Physical Exam Constitutional: Appearance: Normal appearance. HENT: Head: Normocephalic. Mouth/Throat: Mouth: Mucous membranes are moist. Eyes: Extraocular Movements: Extraocular movements intact. Pupils: Pupils are equal, round, and reactive to light. Cardiovascular: Rate and Rhythm: Normal rate and regular rhythm. Pulmonary: Effort: Pulmonary effort is normal. Abdominal: General: Abdomen is flat. Skin: General: Skin is warm. Neurological: General: No focal deficit present. Mental Status: She is alert. Psychiatric: Mood and Affect: Mood normal. Estimated body mass index is 17.67 kg/m??? as calculated from the following: Height as of this encounter: 1.524 m (5'). Weight as of this encounter: 41.1 kg (90 lb 8 oz). Active Inpatient Problems Principal Problem: Dizziness Assessment and Plan Dizziness/weakness - neuro did see in ER and reported likely vertigo related to nausea - consult PT/OT -Recommend that patient follows up with previous ordered MRI brain w/wo contrast as outpatient. Continue taking meclizine 25 mg as needed for dizziness and [id number] Tylenol as needed for headaches. -Patient scheduled to follow-up with PCP Dr. Amaya on 01/03 B12 deficiency - B12 148 - will give B12 injection today - start b12 daily Hypothyroid - cont synthroid History of heart block - Dr. Weaver placed biotronik PM 2019 - last interrogation 10/2023 GERD - cont ppt COPD - stable Hyperlipidemia - cont statin Underweight - BMI 17 - will consult nutrition VTE Prophylaxis: Heparin subcutaneous Scheduled Meds buPROPion XL, 300 mg, oral, Daily cetirizine, 10 mg, oral, Daily cyanocobalamin, 1,000 mcg, intramuscular, q30 days cyanocobalamin, 1,000 mcg, oral, Daily heparin (porcine), 5,000 Units, subcutaneous, q12h KISHAN lamoTRIgine, 50 mg, oral, Daily levothyroxine, 125 mcg, oral, Daily before breakfast pantoprazole, 40 mg, oral, BID AC potassium chloride CR, 20 mEq, oral, Once simvastatin, 20 mg, oral, Nightly sodium chloride, 100 mL/hr, Last Rate: 100 mL/hr (01/03/24 0329) Pertinent Investigations Hematology: Results from last 7 days Lab Units 01/03/24 0446 01/02/24 0811 WBC AUTO 10*3/uL 2.50* 3.38* HEMOGLOBIN g/dL 13.1 13.9 HEMATOCRIT % 41.4 44.0 MCV fL 90.2 91.9 PLATELETS AUTO 10*3/uL 203 201 Chemistry: Results from last 7 days Lab Units 01/03/24 0717 01/02/24 0922 01/01/24 2220 SODIUM mmol/L 140 141 140 POTASSIUM mmol/L 3.5 3.6 3.8 CHLORIDE mmol/L 109* 109* 106 CO2 mmol/L 26 28 24 BUN mg/dL 6* 7 10 CREATININE mg/dL 0.71 0.82 0.82 GLUCOSE mg/dL 89 96 86 MAGNESIUM mg/dL 1.9 -- 2.1 CALCIUM mg/dL 8.3* 8.6 9.6 Results from last 7 days Lab Units 01/01/24 2220 AST U/L 20 ALT U/L 10 ALK PHOS U/L 81 BILIRUBIN TOTAL mg/dL 0.5 LIPASE U/L 47 Historical Values: (Includes values prior to this admission) Lab Results Component Value Date TSH 0.01 (L) 01/02/2024 FREET4 1.66 01/02/2024 Lab Results Component Value Date [id number] 148 (L) 01/03/2024 Imaging ECG 12 lead Atrial-paced rhythm Right axis deviation Pulmonary disease pattern Abnormal ECG When compared with ECG of 30-MAR-2020 12:22, Electronic atrial pacemaker has replaced Sinus rhythm Vent. rate has increased BY 26 BPM QRS duration has decreased Nonspecific T wave abnormality now evident in Anterior leads Confirmed by Savana ALVAREZ, ROBERT Flores ([id number]) on 01/02/2024 9:09:03 AM Discharge Planning Discharge Planning Support Systems: Children Type of Residence/Post Acute Needs: Private residence Patient's goal for discharge: To go home OT Discharge Recommendations: Home Signed Sara [facility] Medicine 01/03/2024 9:20 AM [facility] 01-03-2024 Note Occupational Therapy Occupational Therapy Evaluation Patient Name: Emigdio Eli : 1965 Today's Date: 01/03/2024 Discharge Recommendation: Home 58 y/o F admitted with dizziness and vomiting. Initiated session with pt supine in bed. Pt supine to sit, donned socks, tolerated ROM and MMT, sit to stand, functional mobility to bathroom, seated toileting, to sink, hand hygiene, around bed to chair, and stand to sit. Concluded session with pt seated in chair with call light in reach. RN approved pt for OOB activity this and pt agreeable. Time In: 806 Time Out: 830 General Subjective: Pt pleasant and cooperativ Family/Caregiver Present: No Patient Active Problem List Diagnosis Abdominal pain Constipated Dyspepsia COPD (chronic obstructive pulmonary disease) (CMS/HCC) CURRAN (dyspnea on exertion) Pacemaker Hyperlipidemia Dizziness Past Medical History: Diagnosis Date Abnormal ECG COPD (chronic obstructive pulmonary disease) (CMS/HCC) Hyperlipidemia Past Surgical History: Procedure Laterality Date CHOLECYSTECTOMY INSERT / REPLACE / REMOVE PACEMAKER Precautions Precautions Medical Precautions: fall risk, IV, isolation, telemetry Pain Pain Assessment Pain Assessment: No/denies pain Cognition Cognition Overall Cognitive Status: Within Functional Limits General Assessment General Assessment Hearing: WFL Home Living Home Living Type of Home: House Lives With: Son (X 2, both work FT) Home Adaptive Equipment: Oxygen, Rollator Home Layout: Multi-level, 1/2 bath on main level (1st floor bed, 2nd floor full bath) Home Access: Stairs to enter with rails Entrance Stairs-Number of Steps: 4 Bathroom Shower/Tub: Tub/shower unit Bathroom Toilet: Standard Bathroom Equipment: None Prior Level of Function Prior Function Level of Randall: Independent with ADLs and functional transfers, Independent with homemaking with ambulation (family or friends drive) Prior Functional Mobility: Independent without device Prior IADLs Static Sitting Balance Static Sitting Balance Static Sitting-Balance Support: No upper extremity supported, Feet supported Static Sitting-Level of Assistance: Independent Dynamic Sitting Balance Dynamic Sitting Balance Dynamic Sitting-Balance Support: No upper extremity supported, Feet supported Dynamic Sitting-Balance: Forward lean, Reaching for objects Dynamic Sitting Balance-Level of Assistance: Independent Static Standing Balance Static Standing Balance Static Standing-Balance Support: No upper extremity supported Static Standing-Level of Assistance: Distant supervision Dynamic Standing Balance Dynamic Standing Balance Dynamic Standing-Balance Support: No upper extremity supported Dynamic Standing Balance-Level of Assistance: Close supervision ADL ADL Eating Assistance: Independent Grooming Assistance: Stand by Grooming Deficit: Wash/dry hands Bathing Assistance: Stand by UE Dressing Assistance: Stand by UE Dressing Deficit: (managing gown) LE Dressing Assistance: Stand by LE Dressing Deficit: Don/doff R sock, Don/doff L sock (clothing management for toileting) Toileting Assistance with Device: Stand by Toileting Deficit: (seated toileting in bathroom) Bed Mobility Bed Mobility Bed Mobility: Yes Bed Mobility 1 Bed Mobility From 1: Supine Bed Mobility Type 1: To Bed Mobility to 1: Short sit Level of Assistance 1: Independent Transfers Transfers Transfer: Yes Transfer 1 Transfer From 1: Bed Transfer Type 1: To Transfer to 1: Toilet Technique 1: Sit to stand, Stand to sit Transfer Device 1: none Transfer Level of Assistance 1: Close supervision Transfers 2 Transfer From 2: Toilet Transfer Type 2: To Transfer to 2: Chair with arms Technique 2: Sit to stand, Stand to sit Transfer Device 2: none Transfer Level of Assistance 2: Close supervision Objective General Assessments Activity Tolerance Endurance: Stage III Activity Tolerance Comments: pt reported mild lightheadedness with standing Vision - Basic Assessment Current Vision: No visual deficits Sensation Light Touch: (occasional n/t L hand) Coordination Movements are Fluid and Coordinated: Yes Hand Function Gross Grasp: Functional Coordination: Functional Extremity Assessments RUE Assessment RUE Assessment: Within Functional Limits LUE Assessment LUE Assessment: Within Functional Limits Outcome Assessments AM-PAC 6 Clicks Putting on and taking off regular lower body clothing?: A Little (Min Assist/Contact Guard/Supervision) Bathing(Including washing,rinsing,drying)?: A Little (Min Assist/Contact Guard/Supervision) Toileting, which includes using the toilet,bedpan,or urinal?: A Little (Min Assist/Contact Guard/Supervision) Putting on and taking off regular upper body clothing?: A Little (Min Assist/Contact Guard/Supervision) Taking (more content not included)... [facility] 01-02-2024 Note 01/02/24 1201 Admission Assessment Questions Verify insurance with patient Yes Do you understand medical disease or what brought you into the hospital? Yes Who is your current PCP? Tony Amaya MD Can I schedule a follow up appointment for you at the time of discharge? No Do you understand why you are taking your current medications? Yes Are you taking your medications as prescribed? Yes Did patient provide teach back? Yes Would you like use our pharmacy [facility] to fill your new medications at the time of Discharge? No Does the patient have a case management manager assigned to them through their insurance? No Living Arrangement (Current/Prior to Hospitalization) Private residence Does the patient have history of HHC or SNF? No Assistive Device Not applicable Patient's goal for discharge To go home Was patient reminded that goal for discharge is 11am? Yes Does the patient have transportation at discharge? Yes Type of Residence/Post Acute Needs Private residence Is PT/OT appropriate? No Is PT/OT ordered? No Is SW consult appropriate? No Is SW consult ordered? No Do you understand the benefits of MyChart? Yes Were you able to send link and activate MyChart? No [facility] 01-02-2024 Note 01/02/24 0931 Referral Data Referral Source form worker Referral Reason Psychosocial assessment Patient Information Primary Caregiver Self Activities of Daily Living Assistive Device Not applicable Living Arrangement (Current/Prior to Hospitalization) Private residence Behavior Oriented Communication Talks;Understands speaking;Understands Polish Discharge Planning Support Systems Children Patient's goal for discharge home Patient resides at home with her two adult children, ages 29 and 33. She relies on friends or other family members for transportation as no one in the family has their license. Denies financial hardship. Denies further social work needs. [facility] 01-02-2024 Note . Hospital Medicine History and Physical 01/02/2024 12:47 AM THE HOSPITALIST TEAM PREFERS TO USE [employer] FOR COMMUNICATION 7AM-7PM. IF I DO NOT RESPOND WITHIN 15 MINUTES, PLEASE PAGE ME/CALL THROUGH THE HOT MILL ROLLER. FROM 7PM-7AM, PLEASE PAGE [phone](COVR) Chief Complaint Chief Complaint Patient presents with Dizziness Vomiting History of Present Illness Emigdio Eli is an 58 y.o. female who came from home with Dizziness. A 58-year-old female with a history of chronic obstructive pulmonary disease, hyperlipidemia, hypothyroidism, and heart block post-pacemaker insertion presented to the Emergency Department for an evaluation of dizziness and vomiting that has persisted for two weeks. She experiences intermittent dizziness, described as a sensation of the room spinning, which worsens with changes in position but also occurs while at rest. She denies experiencing chest pain and shortness of breath but reports abdominal discomfort along with nausea and vomiting. She has lost 4 pounds due to her inability to tolerate food or drinks because of the vomiting. She denies fevers, chills, cough, upper respiratory infection symptoms, blurred or double vision, numbness, weakness, or tingling of extremities. She has had recurrent falls due to dizziness but denies any head injury or neck and back pain. She mentions a recent visit to an outside hospital for similar complaints where she was diagnosed with a hiatal hernia andcolitis, and was advised to undergo an MRI on an outpatient basis, but has not yet been able to schedule it. She also reports starting meclizine as prescribed by her primary care provider last week, with no improvement in symptoms. A CT scan of the head without intravenous contrast, followed by a CT scan of the head with intravenous contrast and a CT angiography of the neck, were performed, revealing no significant findings. The patient is hemodynamically stable with a blood pressure of 100/60, a pulse rate in the 90s, and an oxygen saturation of 97% on room air. Laboratory tests, including liver function tests, kidney function tests, and electrolytes, were within normal limits, except for a white blood cell count of 3.4 on the low side and noted ketones. The patient is being admitted to the Medical-Surgical floor with continuous heart rhythm and oxygen saturation monitoring. Precautions for falls and seizures have been implemented, and a consultation with the neurology team has been requested for further evaluation and workup. Review of System and Physical Exam Temp: [36.9 ???C (98.4 ???F)] 36.9 ???C (98.4 ???F) Heart Rate: [73-91] 77 Resp: [16] 16 BP: (109-147)/(65-90) 127/78 Physical Exam Vitals and nursing note reviewed. Constitutional: Appearance: Normal appearance. She is normal weight. HENT: Head: Normocephalic and atraumatic. Right Ear: Tympanic membrane, ear canal and external ear normal. Left Ear: Tympanic membrane and external ear normal. Nose: Nose normal. Mouth/Throat: Mouth: Mucous membranes are moist. Pharynx: Oropharynx is clear. Eyes: Conjunctiva/sclera: Conjunctivae normal. Pupils: Pupils are equal, round, and reactive to light. Cardiovascular: Rate and Rhythm: Normal rate and regular rhythm. Pulmonary: Effort: Pulmonary effort is normal. Abdominal: General: Abdomen is flat. Bowel sounds are normal. Musculoskeletal: General: Normal range of motion. Cervical back: Normal range of motion and neck supple. Skin: General: Skin is warm. Capillary Refill: Capillary refill takes 2 to 3 seconds. Neurological: General: No focal deficit present. Mental Status: She is alert. Mental status is at baseline. Psychiatric: Mood and Affect: Mood normal. Thought Content: Thought content normal. Judgment: Judgment normal. Review of Systems Gastrointestinal: Positive for diarrhea and nausea. Neurological: Positive for dizziness and weakness. All other systems reviewed and are negative. Problem List Patient Active Problem List Diagnosis Date Noted Dizziness 01/02/2024 CURRAN (dyspnea on exertion) 05/03/2023 COPD (chronic obstructive pulmonary disease) ([facility]) Pacemaker Hyperlipidemia Abdominal pain 10/13/2014 Constipated 10/13/2014 Dyspepsia 10/13/2014 Assessment and Plan #Dizziness #Heart block s/p pacemaker #Diarrhea -Admitting to medical surgical floor -Telemetry monitoring -Gentle IV hydration -Consulted neurology team for further recommendation possible workup MRI for dizziness -Fall precautions -Seizure precautions -Aspiration precautions -Continued home medication including lamotrigine -CT abdomen done in ER workup for diarrhea -Stool enteric bacterial DNA, stool lactoferrin, stool leukocyte, elastase and rest of the fecal workup for diarrhea ordered. #Hypertension -ASCVD risk estimation. #COPD -Breathing treatment #Hypothyroidism: -TSH with reflex T4 -Continued levo (more content not included)... [facility] 10-24-2023 Note [facility] Consult Note Reason for visit: s/p DC PPM 10/24/23: She has been feeling well without complaints of CP, worsened CRURAN, le edema, palpitations She continues to have some CURRAN when doing chores around her house Discussed likely COPD vs pulm htn given negative stress and otherwise unremarkable TTE aside the mildly elevated RVSP Device check 10/24/23 RA pacing 70%, RV pacing 1% Stress test 09/2023 was negative for ischemia TTE 09/06/23 normal LVEF 60%, mildly elevated RVSP, mild TR 04/26/22 HPI: Emigdio Eli is a 58 y.o. year old with past medical history of COPD, heart blocks s/p biotronik dual-chamber PPM [address] Weaver, bipolar, depression. 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 [facility] 10-24-2023 Note Patient here for fol low up echo, stress test, and device check. Review of Systems Constitutional: Positive for malaise/fatigue. Cardiovascular: Positive for chest pain and dyspnea on exertion. Respiratory: Positive for cough. Musculoskeletal: Positive for arthritis, back pain and myalgias. All other systems reviewed and are negative. [facility] 05-03-2023 Note -CT statin [facility] 05-03-2023 Note - Biotronik dual-bryce mber PPM implanted [address] Weaver - normal device function and stable lead thresholds, device checks as scheduled [facility] 05-03-2023 Note [facility]on [facility] -stable -follow up with pcp [facility] 04-26-2023 Note [facility] Consult Note Reason for visit: s/p DC PPM per dr. Weaver 2020 inpatient and never seen in office HPI: Emigdio Eli is a 57 y.o. year old with past medical history of COPD, heart blocks s/p biotronik dual-chamber PPM [address] Weaver, bipolar, depression. 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 [facility] 04-26-2023 Note Patient here for fol low up. She has never been seen in the office since Dr. Weaver placed her device in 2019. C/o SOB with exertion and fatigue. Denies chest pain, palpitations, and lightheadedness. No labs or testing since her admission in December 2022. Review of Systems Constitutional: Positive for malaise/fatigue. Cardiovascular: Positive for dyspnea on exertion. Respiratory: Positive for cough. Musculoskeletal: Positive for arthritis, back pain and myalgias. All other systems reviewed and are negative. [facility] 08-12-2022 History and physi leandro note Note Date/Time August 04, 2022 3:52pm [facility] [address] [place] [address] Cardiothoracic Surgery H&P Signed Patient: Emigdio Eli MR#: [id number] : 1965 Acct:[id number] Age/Sex: 56 / F Adm Date: 2 Loc: [place] Room: Type: PRE SDC Attending Dr: Rodolfo Harley MD Copies [...] IgG IgM and IgA were all negative. Anti-GA-3 antibodies were 5.0. ?P ANCA was 1:80. 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 We will give 100 mg of IV Solu-Cortef on-call to the OR. We will utilize vancomycin and Levaquin given the questionable history of penicillin allergy with hives as a baby, although she states she recently had penicillin without issues. Documented By: Rodolfo Harley MD 08/04/22 1223 Signed By: <Electronically signed by MD Rodolfo Harley> 08/12/[address] [facility] Work Phone: 1(614) 646-783811-11-2022 Hospital Discharge instructionsAmbulatory Orders* Initiate Home Health Time Frame: 08/12/22, Location: Determined By Patient Additional Instructions no lifting 5-10 lbs. Continue Peridex mouthwash. May remove dressing tomorrow. Daily showers with Betasept wash. No driving.[facility] Work Phone: 1(459) 334-757511-11-2022 Progress note Author Nathaniel Meza [facility] August 12, 2022 11:59am Note Date/Time August 12, 2022 8:13am [facility] [address] [place] [address] Pulmonology Progress Note Signed Patient: Emigdio Eli MR#: [id number] : 1965 Acct:[id number] Age/Sex: 56 / F Adm Date: 2 Loc: Room: [address] [place] [address] Type: REG [facility] Attending Dr: Rodolfo Harley MD Copies to: [...] <Electronically signed by MD Nathaniel Meza> 08/12/22 [facility] Work Phone: 1(540) 929-401311-10-2022 Progress note Author Nathaniel Meza [facility] August 11, 2022 10:07am Note Date/Time August 11, 2022 7:43am [facility] [address] [place] [address] Pulmonology Progress Note Signed Patient: Emigdio Eli MR#: [id number] : 1965 Acct:[id number] Age/Sex: 56 / F Adm Date: 2 Loc: Room: [address] [place] [address] Type: REG SDC Attending Dr: Rodolfo Harley [...] <Electronically signed by MD Nathaniel Meza> 08/11/[address] [place] [address] Ctr Work Phone: 1([phone] 274-101811-09-2022 Consult note Author Nathaniel Meza [facility] August 10, 2022 5:46pm Note Date/Time August 10, 2022 5 :41pm [facility] [address] [place] [address] Pulmonology Consult Note Signed Patient: Emigdio Eli MR#: [id number] : 1965 Acct:[id number] Age/Sex: 56 / F Adm Date: 2 Loc: Room: [address] [place] [address] Type: [facility] Attending Dr: Rodolfo Harley MD Copies to: MD Nathaniel Carrera MD Douglas M Hoy, MD~ HPI Date/Time of Consultation: Date of Service: 08/10/2022 Time of Service: 17:35 Consulting Provider: Nathaniel Meza Requesting Provider: Rodolfo Harley History of Present Illness History of present illness: Ms. Eli is a 56 year old female seen at the request of the cardiothoracic surgery service for history of interstitial lung disease. Patient has been followed by Dr. Nadege Gardner at [place] with complaints of dyspnea on exertion as [...] negative unless noted below or in HPI [facility] Vaccinated for COVID-19?: No Medical History (Updated [...] and provide assistance as able. Documented By: aNthaniel Meza MD 2 1737 Signed By: <Electronically signed by MD Nathaniel Meza> 08/10/22 0109 [facility] Work Phone: Evaluation noteNo assessment information available [facility] Work Phone: Evaluation note* Diagnosis Onset Date Resolution Status Bipolar 1 disorder acute Bronchiectasis acute Hypercholesteremia acute Hypothyroidism acute Interstitial lung disease ac [facility] Work Phone: Evaluation note* Diagnosis Onset Date Resolution Status Bipolar 1 disorder acute Hypercholesteremia acute Hypothyroidism acute Interstitial lung disease ac [place] Bipolar 1 disorder acute Bronchiectasis acute Hypercholesteremia acute Hypothyroidism acute Interstitial lung disease ac [facility] Work Phone: Summary Purpose Family History No Family History Records FoundNo Family History Records FoundNo Family History Records FoundNo Family History Records Found Advance Directives No Advanced Directives Records Found Advance Directive Response Recorded Date/ Time Advance Directives No August 05, 2022 8:18am Hospital Course Note MR#: [id number] [facility] Pt. Name: Emigdio Eli Admitted: 03/30/2020 Discharged: 04/06/2020 Date of : 1965 Physician: Marjan Guthrie MD DISCHARGE SUMMARY CONSULTANTS: Cardiology. PROCEDURE: Permanent [...] and content) DATE CREATED AUTHOR 04/23/2020 [facility] DATE CREATED AUTHOR AUTHOR'S ORGANIZ ATION 01/07/2023 [facility] DATE CREATED AUTHOR AUTHOR'S ORGANIZ ATION 12/27/2023 [facility] DATE CREATED AUTHOR AUTHOR'S BREANNA ATMARY 02/03/2024 [facility] Care Teams (unrecognized sec tion and content) Team Status: Inactive Member Role Status Dates Rodolfo Harley MD Attending Provider Active Tony Amaya MD Primary Care Provider Active Team Status: Active Member Role Status Dates Tony Amaya MD Primary Care Provider Active Team Status: Inactive Member Role Status Dates Tony Amyaa MD Primary Care Provider Active Rodolfo Harley MD Attending Provider Active Allyssa Washburn APRN ACN- Other Provider Active Jonah Badillo MD Other Provider Active Nathaniel Meza MD Other Provider Active Daiana Whitehead MD Other Provider Active Edgardo Espinoza , Other Provider Active Stacey Cuevas MD Other Provider Active Beau Jones MD Other Provider Active Darryl Lambert MD Other Provider Active Giorgi Phillips , DO Other Provider Active Team Status: Inactive Member Role Status Dates Tony Amaya MD Primary Care Provider Active Rodolfo Harley [...] BE BASED ON THE PRIMARY CLINICAL RECORDS. [employer] provides no warranty or guarantee of the accuracy or completeness of information in this document.
--- NOTE | 2024-02-20 10:43 | XR_ITS ---
The [address] [address] Patient Name: EMIGDIO ELI MRN: [id number] date: 1965 Sex: F Assigned Patient Location: ER Current Patient Location: ER Accession/Order Number: [id number] Exam Date: 02/20/2024 11:08 Report Date: 02/20/2024 11:49 At the request of: ALEXANDER CAMARENA Procedure: XR chest 1V EXAMINATION: XR chest 1V HISTORY: chest pain COMPARISON: XR chest 12/25/2023 FINDINGS: LUNGS: Minimal haziness within left lateral costophrenic angle. Stable small granuloma and scarring/surgical changes within lateral right midlung. VASCULATURE: No increased pulmonary vasculature. PLEURA: No pneumothorax, effusion, or pleural thickening. CARDIAC: No cardiomegaly or cardiac silhouette abnormality. MEDIASTINUM: No visible mass or adenopathy. BONES: No fracture or visible bone lesion. OTHER: Stable cardiac pacer. XR/XR chest 1V IMPRESSION: 1. Trace amount of lingular atelectasis or possibly infiltrates. Otherwise stable chest. Electronically authenticated by: DENIZ KRAFT Date: 02/20/2024 11:49
--- NOTE | 2024-02-20 10:43 | ECG_ITS ---
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
--- NOTE | 2024-02-20 10:47 | ED_ITS ---
HPI - Chest Pain General Chief Complaint: Chest Pain Stated Complaint: CHEST PAIN, PT HAS PACE MAKER Time Seen by Provider: 02/20/24 10:44 Source: patient Mode of arrival: Wheelchair Limitations: no limitations History of Present Illness HPI narrative: 58-year-old female presents for chest pain. It started during the night, 2:30 in the morning and it woke her up. It sharp and it is just to the right of midline in the sternal region. No fever or cough or complaints to me of shortness of breath. She has a pacemaker but has never had myocardial infarction. Related Data Home Medications ?Medication ?Instructions ?Recorded ?Confirmed bupropion HCl 300 mg 24 hr tablet, 300 mg PO DAILY 09/25/23 12/27/23 extended release cholecalciferol (vitamin D3) 50 50 mcg PO DAILY 09/25/23 12/27/23 mcg (2,000 unit) capsule citalopram 20 mg tablet 20 mg PO DAILY 09/25/23 12/27/23 lamotrigine 25 mg tablet 50 mg PO BEDTIME 09/25/23 12/27/23 lansoprazole 30 mg capsule,delayed 30 mg PO DAILY 09/25/23 12/27/23 release levothyroxine 125 mcg tablet 125 mcg PO DAILY 09/25/23 12/27/23 simvastatin 20 mg tablet 20 mg PO DAILY 09/25/23 12/27/23 docusate sodium 100 mg capsule 100 mg PO PRN 12/22/23 12/27/23 (Col-Rite) loratadine 10 mg tablet (Allergy 10 mg PO DAILY 12/22/23 12/27/23 Relief (loratadine)) Previous Rx's ?Medication ?Instructions ?Recorded ciprofloxacin HCl 500 mg tablet 500 mg PO Q12H #14 tabs 12/27/23 (Cipro) metronidazole 500 mg tablet 500 mg PO Q8H 7 days #21 tabs 12/27/23 ondansetron 4 mg disintegrating 4 mg PO Q6H PRN nausea and 12/27/23 tablet vomiting #20 tabs sucralfate 1 gram tablet 1 g PO ACHS #120 tabs 12/27/23 metoclopramide HCl 10 mg tablet 10 mg PO ACHS 7 days #28 tabs 12/28/23 (Reglan) Allergies Allergy/AdvReac Type Severity Reaction Status Date / Time acetaminophen [From Percocet] Allergy Mild Vomiting Verified 12/22/23 17:31 codeine Allergy Mild Vomiting Verified 12/22/23 17:31 oxycodone [From Percocet] Allergy Mild Vomiting Verified 12/22/23 17:31 promethazine Allergy Mild Agitated Verified 12/22/23 17:31 Sulfa (Sulfonamide Allergy Mild Vomiting Verified 12/22/23 17:31 Antibiotics) hydromorphone [From Dilaudid] AdvReac Mild Rash Verified 12/22/23 17:31 prochlorperazine AdvReac Mild Verified 12/22/23 17:31 [From Compazine] Review of Systems ROS Narrative A ten point review of systems is negative except as noted above. [facility] Medical History (Updated 02/20/24 @ 13:03 by Reed Ralph MD) Hypothyroid ?E03.9 - Hypothyroidism, unspecified (ICD-10) Esophagitis ?K20.90 - Esophagitis, unspecified without bleeding (ICD-10) Pancolitis ?K51.00 - Ulcerative (chronic) pancolitis without complications (ICD-10) Pulmonary hypertension ?I27.20 - Pulmonary hypertension, unspecified (ICD-10) Cholecystitis ?K81.9 - Cholecystitis, unspecified (ICD-10) Depression ?F32.A - Depression, unspecified (ICD-10) On home O2 ?Z99.81 - Dependence on supplemental oxygen (ICD-10) Hyperthyroidism ?E05.90 - Thyrotoxicosis, unspecified without thyrotoxic crisis or storm (ICD-10) Scoliosis ?M41.9 - Scoliosis, unspecified (ICD-10) Emphysema lung ?J43.9 - Emphysema, unspecified (ICD-10) Nausea & vomiting ?R11.2 - Nausea with vomiting, unspecified (ICD-10) Pacemaker ?Z95.0 - Presence of cardiac pacemaker (ICD-10) COPD (chronic obstructive pulmonary disease) ?J44.9 - Chronic obstructive pulmonary disease, unspecified (ICD-10) Surgical History History of tonsillectomy ?Z90.89 - Acquired absence of other organs (ICD-10) H/O right wrist surgery ?Z98.890 - Other specified postprocedural states (ICD-10) H/O colectomy ?Z90.49 - Acquired absence of other specified parts of digestive tract (ICD- 10) Family History Mother Family history of COPD (chronic obstructive pulmonary disease) Grandmother Family history of cancer Sister Family history of diabetes mellitus Father Family history of myocardial infarction Social History (Updated 12/27/23 @ 23:45 by Meghana Lo) Within the past year, how often did you have a drink containing alcohol: never Within the past year, how often did you have six or more drinks on one occasion: never Score interpretation: A score less than 3 is consistent with normal alcohol consumption. 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 Known occupational exposures/hazards: No Highest level of school completed/degree received: 10th grade Do you want help with school or training: No Are you now , , , , never or living with a partner: In a typical week, how many times do you talk on the telephone with family, friends, or neighbors: 3 or more times per week How often do you get together with friends or relatives: 3 or more times per week How often do you attend presybeterian or alevism services: 4 or more times per year Do you belong to any clubs or organizations such as presyb[employer]ian groups unions, fraternal or athletic groups, or school groups: yes Total score: 3 Score interpretation: A score of greater than or equal to 2 indicates the [facility] level of social isolation. Little interest or pleasure in doing things: not at all Feeling down, depressed, or hopeless: not at all Feel stressed/tense/nervous/anxious/difficulty sleeping: to some extent Life stressors: unknown source of stress Due to disability, difficulty making decisions: No Do you think of yourself as: bisexual Gender Identity: female Exam Narrative Exam Narrative: Nurses note and vital signs reviewed and patient is not hypoxic. General: The patient appears well and in no apparent distress. Patient is resting comfortably on cart. Skin: Warm, dry, no pallor noted. There is no rash noted. Head: Normocephalic, atraumatic Eye: Normal conjunctiva, no drainage Ears, Nose, Mouth, and Throat: oral mucosa is moist. Nares patent. Cardiovascular: Regular Rate and Rhythm, paced rhythm on the monitor Respiratory: Patient is in no distress, no accessory muscle use, lungs are clear to auscultation, no wheezing, rales or rhonchi Back: non-tender GI: Soft and nontender Musculoskeletal: The patient has no evidence of calf tenderness, no pitting edema, symmetrical pulses noted bilaterally Neurological: Awake and alert Psychiatric: Cooperative Constitutional Vital Signs, click to edit/add: Last Vital Signs Temp 97.7 F 02/20/24 10:27 Pulse 71 02/20/24 11:30 Resp 22 H 02/20/24 11:30 BP 135/81 02/20/24 10:27 Pulse Ox 97 02/20/24 11:30 O2 Del Method Room Air 02/20/24 10:49 O2 Flow Rate 2 02/20/24 10:49 Course Vital Signs Vital signs: Vital Signs Temperature 97.7 F 02/20/24 10:27 Pulse Rate 72 02/20/24 10:27 Respiratory Rate 20 02/20/24 10:27 Blood Pressure 135/81 02/20/24 10:27 Pulse Oximetry 93 L 02/20/24 10:27 Oxygen Delivery Method Room Air 02/20/24 10:27 Temperature 97.7 F 02/20/24 10:27 Pulse Rate 71 02/20/24 11:30 Respiratory Rate 22 H 02/20/24 11:30 Blood Pressure 135/81 02/20/24 10:27 Pulse Oximetry 97 02/20/24 11:30 Oxygen Delivery Method Room Air 02/20/24 10:49 Oxygen Delivery Flow Rate 2 02/20/24 10:49 MDM - Chest Pain MDM Narrative Medical decision making narrative: 2 sets of troponin are negative. I have no suspicion of pulmonary embolism. Her workup otherwise is negative as well. I have spoken to her PCP and we have agreed the patient will be discharged home with follow-up in the office. Treatment diagnosis and follow-up were discussed with the patient and her family. Differential Diagnosis Differential diagnosis: Likely pneumothorax, atypical chest pain, st elevation myocardial infarction, costochondritis and chest pain Lab Data Attestation: I reviewed the patient's lab results. Labs: Lab Results 02/20/24 02/20/24 Range/Units 10:42 12:04 WBC 4.3 (4.0-11.0) 10^3/uL RBC 5.00 (4.20-5.40) 10^6/uL Hgb 14.5 (12.0-16.0) g/dL Hct 44.1 (36.0-48.0) % MCV 88.2 (81.0-99.0) fL MCH 29.0 (26.7-34.0) pg MCHC 32.9 (29.9-35.2) g/dL RDW 12.8 (11.0-15.0) % Plt Count 227 (150-450) 10^3/uL MPV 9.5 (9.5-13.5) fL Neut % (Auto) 61.2 (43.0-75.0) % Lymph % (Auto) 26.2 (20.5-60.0) % [place] % (Auto) 6.5 (1.7-12.0) % Eos % (Auto) 5.4 (0.9-7.0) % Baso % (Auto) 0.5 (0.2-2.0) % Neut # (Auto) 2.6 (1.4-6.5) 10^3/uL Lymph # (Auto) 1.1 L (1.2-3.8) 10^3/uL [place] # (Auto) 0.3 (0.3-0.8) 10^3/uL Eos # (Auto) 0.2 (0.0-0.7) 10^3/uL Baso # (Auto) 0.0 (0.0-0.1) 10^3/uL Abs Immat Gran (auto) 0.01 (0.00-0.03) 10^3/uL Imm/Tot Granulo (auto) 0.2 (0.0-0.5) % Sodium 140 (136-145) mmol/L Potassium 3.9 (3.5-5.1) mmol/L Chloride 103 (98-107) mmol/L Carbon Dioxide 28.9 (21.0-32.0) mmol/L Anion Gap 12.0 BUN 10.0 (7.0-18.0) mg/dL Creatinine 0.87 (0.55-1.02) mg/dL Est GFR ( Amer) >60 (>=60) Est GFR (Non-Af Amer) >60 (>=60) BUN/Creatinine Ratio 11.5 Glucose 89 (74-106) mg/dL Calcium 9.7 (8.5-10.1) mg/dL Total Bilirubin 0.4 (0.2-1.0) mg/dL AST 21 (15-37) U/L ALT 22 (14-59) U/L Alkaline Phosphatase 129 H (46-116) U/L Troponin I High Sens 5.0 5.1 (4.0-51.3) pg/mL Total Protein 7.7 (6.4-8.2) g/dL Albumin 3.8 (3.4-5.0) g/dL Globulin 3.9 g/dL Albumin/Globulin Ratio 1.0 Imaging Data Chest x-ray: Radiologist's impression: ITS Impressions Chest X-Ray 02/20/24 10:43 IMPRESSION: 1. Trace amount of lingular atelectasis or possibly infiltrates. Otherwise stable chest. Electronically authenticated by: DENIZ KRAFT Date: 02/20/2024 11:49 ECG Data Attestation: I personally reviewed and interpreted this ECG as follows: (EKG on my interpretation shows paced rhythm with no ST segment change) Heart Score History: Slightly/Non-Suspicious ECG: Normal Age: >45-<65 years Risk Factors: 1 or 2 Risk Factors Troponin: <Normal Limit Total Heart Score Recommendations & Risks:: 2 Discharge Plan Discharge Stand Alone Forms: Portal Instructions Chief Complaint: Chest Pain Clinical Impression: Chest pain Patient Disposition: Home, Self-Care Time of Disposition Decision: 13:02 Condition: Good Mode of Transportation: Private Vehicle Prescriptions / Home Meds: No Action bupropion HCl 300 mg tablet extended release 24 hr 300 mg PO DAILY cholecalciferol (vitamin D3) 50 mcg (2,000 unit) capsule 50 mcg PO DAILY citalopram 20 mg tablet 20 mg PO DAILY lamotrigine 25 mg tablet 50 mg PO BEDTIME lansoprazole 30 mg capsule,delayed release(DR/EC) 30 mg PO DAILY levothyroxine 125 mcg tablet 125 mcg PO DAILY simvastatin 20 mg tablet 20 mg PO DAILY loratadine [Allergy Relief (loratadine)] 10 mg tablet 10 mg PO DAILY docusate sodium [Col-Rite] 100 mg capsule 100 mg PO PRN sucralfate 1 gram Tablet 1 g PO ACHS Qty: 120 11RF Hold Instructions: per nursing note: patient DC'd Patient Comments: pt. was dc'd with these scripts has not started ciprofloxacin HCl [Cipro] 500 mg tablet 500 mg PO Q12H Qty: 14 0RF Hold Instructions: per nursing note: patient DC'd Patient Comments: pt. was dc'd with these scripts has not started metronidazole 500 mg tablet 500 mg PO Q8H 7 Days Qty: 21 0RF Hold Instructions: per nursing note: patient DC'd Patient Comments: pt. was dc'd with these scripts has not started ondansetron 4 mg tablet,disintegrating 4 mg PO Q6H PRN (Reason: nausea and vomiting) Qty: 20 3RF Hold Instructions: per nursing note: patient DC'd Patient Comments: pt. 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
[2024-02-20 10:54] LABS: Basophils Percent Auto 0.5 % (0.2-2.0); Eosinophils Absolute Auto 0.2 10^3/uL (0.0-0.7); Eosinophils Percent Auto 5.4 % (0.9-7.0); Hematocrit 44.1 % (36.0-48.0); Hemoglobin 14.5 g/dL (12.0-16.0); Immature Granulocytes Abs Auto 0.01 10^3/uL (0.00-0.03); Immature Granulocytes Pct Auto 0.2 % (0.0-0.5); Lymphocytes Absolute Auto 1.1 10^3/uL (1.2-3.8); Lymphocytes Percent Auto 26.2 % (20.5-60.0); Mean Corpuscular HGB Conc 32.9 g/dL (29.9-35.2); Mean Corpuscular Volume 88.2 fL (81.0-99.0); Mean Platelet Volume 9.5 fL (9.5-13.5); Monocytes Absolute Auto 0.3 10^3/uL (0.3-0.8); Monocytes Percent Auto 6.5 % (1.7-12.0); Neutrophils Absolute Auto 2.6 10^3/uL (1.4-6.5); Neutrophils Percent Auto 61.2 % (43.0-75.0); Platelet Count 227 10^3/uL (150-450); Red Cell Distribution Width 12.8 % (11.0-15.0); White Blood Count 4.3 10^3/uL (4.0-11.0)
[2024-02-20 11:17] LABS: Alanine Aminotransferase 22 U/L (14-59); Albumin Level 3.8 g/dL (3.4-5.0); Alkaline Phosphatase 129 U/L (46-116); Aspartate Amino Transferase 21 U/L (15-37); BUN Creatinine Ratio 11.5; Bilirubin Total 0.4 mg/dL (0.2-1.0); Calcium 9.7 mg/dL (8.5-10.1); Carbon Dioxide 28.9 mmol/L (21.0-32.0); Chloride 103 mmol/L (98-107); Estimated GFR (African America >60 (>=60); Estimated GFR (Non-African Ame >60 (>=60); Globulin 3.9 g/dL; Glucose 89 mg/dL (74-106); Potassium 3.9 mmol/L (3.5-5.1); Sodium 140 mmol/L (136-145); Total Protein 7.7 g/dL (6.4-8.2)
[2024-02-20 12:48] LABS: Troponin I High Sensitivity 5.1 pg/mL (4.0-51.3)
== END 2024-02-20 13:16 | disposition home or self-care (01) ==
PROVIDERS: Emergency Provider Emergency Medicine; PCP Family Medicine
DX: R07.9 Chest pain, unspecified (principal); I27.20 Pulmonary hypertension, unspecified; J43.9 Emphysema, unspecified; F32.A Depression, unspecified; Z99.81 Dependence on supplemental oxygen; Z90.49 Acquired absence of other specified parts of digestive tract; Z95.0 Presence of cardiac pacemaker; Z79.899 Other long term (current) drug therapy; Z79.890 Hormone replacement therapy; Z98.890 Other specified postprocedural states; Z90.89 Acquired absence of other organs
CPT/HCPCS: 36415; 71045; 80053; 84484; 85025; 93005; 99285

== ENCOUNTER 2024-06-19 20:54 | Emergency (ER) | payer OTHER, SELFPAY ==
--- OUTSIDE RECORDS SUMMARY | 2024-06-19 21:04 | XMS_ITS | CCD ---
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 [id number] #### [facility] ([facility]) [address] [place] [address] Monocytes (Bld) [#/Vol] 0.29 10*3/uL Normal 0.10-1.00 [facility] Comment on above: Performed By: #### L [id number] #### [facility] ([facility]) [address] [place] [address] Monocytes/100 WBC (Bld) 6.2 % Normal 5.0-12.0 [facility] Comment on above: Performed By: #### L [id number] #### [facility] ([facility]) [address] [place] [address] Neutrophils (Bld) [#/Vol] 2.80 10*3/uL Normal 1.60-7.60 [facility] Comment on above: Performed By: #### L [id number] #### [facility] ([facility]) [address] [place] [address] Neutrophils/100 WBC (Bld) 59.7 % Normal 40.0-72.0 [facility] Comment on above: Performed By: #### L [id number] #### [facility] ([facility]) [address] [place] [address] NRBC (PER 100 WBCS) BY AUTOMATED COUNT 0.0 % Normal 0 [facility] Comment on above: Performed By: #### L [id number] #### [facility] ([facility]) [address] [place] [address] PLATELETS (10*3/UL) IN BLOOD AUTOMATED COUNT 225 10*3/uL Normal 150-400 [facility] Comment on above: Performed By: #### L [id number] #### [facility] ([facility]) [address] [place] [address] RBC (Bld) [#/Vol] 4.88 10*6/uL Normal 3.80-5.00 [facility] Comment on above: Performed By: #### L [id number] #### [facility] ([facility]) [address] [place] [address] WBC (Bld) [#/Vol] 4.69 10*3/uL Normal 4.00-10.60 [facility] Comment on above: Performed By: #### L [id number] #### [facility] ([facility]) [address] [place] [address] D-DIMER, QUANTITATIVEon 05- FIBRIN D-DIMER (UG/L FEU) IN PLATELET POOR PLASMA <0.27 Low 0.27-0.49 [facility] Comment on above: Order Comment: D-Dim er values of less than 0.50 ug/ml (FEU) are considered to be a negative predictor of thrombosis. However, the D-Dimer result should be used in conjunction with pretest probability and should not be used alone to diagnose a thrombotic event. Performed By: #### L [id number] ####[facility] ([facility])[address] [place] [address] EDPROVon 02-20-2024 EDPROV HPI Chief Complaint Patient presents with ??? Chest Pain Pt is a 58yo F with history of COPD, hyperlipidemia. Pt c/o sharp midsternal chest pain which woke her up from sleep at 3am this morning and has been constant since. Pt also endorses some dizziness. Denies radiation of pain, diaphoresis, abdominal pain. States the pain is worse she she takes deep breaths and when she pushes on her chest. She denies any chest wall injury. Had normal stress test and KYLE performed in Sep 2023 with mild RVSP. History provided by: Patient [place] Coma Scale Score: 15 Patient History Past Medical History: Diagnosis Date ??? Abnormal ECG ??? COPD (chronic obstructive pulmonary disease) (CMS/HCC) ??? Hyperlipidemia Past Surgical History: Procedure Laterality Date ??? CHOLECYSTECTOMY ??? INSERT / REPLACE / REMOVE PACEMAKER Family History Problem Relation Name Age of Onset ??? Alzheimer's disease Father Social History Tobacco Use ??? Smoking status: Never ??? Smokeless tobacco: Never Substance Use Topics ??? Alcohol use: Not Currently ??? Drug use: Not on file Review of Systems Review of Systems Constitutional: Negative. HENT: Negative for congestion. Cardiovascular: Positive for chest pain. Negative for palpitations. Gastrointestinal: Positive for nausea. Negative for abdominal pain. Endocrine: Negative. Genitourinary: Negative for dysuria. Musculoskeletal: Negative for myalgias. Skin: Negative for rash. Allergic/Immunologic: Negative. Neurological: Positive for dizziness. Negative for syncope. Hematological: Negative. Physical Exam ED Triage Vitals Temp Heart Rate Resp BP 02/20/244 02/20/24 18402/20/24 18402/20/24 184 36.7 ???C (98 ???F) 78 18 122/75 SpO2 Temp Source Heart Rate Source Patient Position 02/20/24184302/20/24184302/20/24 190 -- 91 % Oral Monitor BP Location FiO2 (%) -- -- Physical Exam Constitutional: General: She is not in acute distress. Appearance: Normal appearance. She is well-developed. She is not ill-appearing, toxic-appearing or diaphoretic. HENT: Head: Normocephalic and atraumatic. Nose: Nose normal. Mouth/Throat: Mouth: Mucous membranes are moist. Pharynx: Oropharynx is clear. Eyes: Pupils: Pupils are equal, round, and reactive to light. Cardiovascular: Rate and Rhythm: Normal rate and regular rhythm. Heart sounds: Normal heart sounds. Pulmonary: Effort: Pulmonary effort is normal. Breath sounds: Decreased air movement present. Decreased breath sounds present. Comments: Poor inspiratory effort due to pain with inspiration. Chest: Chest wall: Tenderness present. No crepitus. Abdominal: General: Bowel sounds are normal. Palpations: Abdomen is soft. Tenderness: There is no abdominal tenderness. Musculoskeletal: General: Normal range of motion. Cervical back: Normal range of motion and neck supple. Skin: General: Skin is warm. Capillary Refill: Capillary refill takes less than 2 seconds. Neurological: Mental Status: She is alert and oriented to person, place, and time. Procedures ED Course & MDM Diagnoses as of 02/20/242116 Chest wall pain Medical Decision Making Attestion Regan Aldana NP 02/20/241955 Regan Aldana NP 02/20/242002 Normal [facility] LIPASEon 02-20-2024 LIPASE (U/L) IN SER/PLAS 54 U/L Normal 11-82 [facility] Comment on above: Performed By: #### L [id number] ####[facility] ([facility])[address] [place] [address] MAGNESIUMon 02-20-2024 Magnesium [Mass/Vol] 2.1 mg/dL Normal 1.9-2.7 [facility] Comment on above: Performed By: #### L [id number] ####[facility] ([facility])[address] [place] [address] TROPONIN Ion 02-20-2024 Troponin I.cardiac [Mass/Vol] 0.00 ng/mL Normal 0.00-0.04 [facility] Comment on above: Performed By: #### L [id number] ####[facility] ([facility])[address] [place] [address] MR BRAIN W AND WO CONTRASTon 02-01-2024 [...] for headaches. Electronically signed: Karthikeyan Linn. Normal [facility] Comment on above: Order Comment: Order states [...] Medications These medications were sent to [facility] - [place], [place] - [facility] [place] [address] [place] [address] [place] [address] [facility] [address] cyanocobalamin 1,000 mcg tablet lactobacillus acidophilus 100 million cell packet meclizine 25 mg tablet ondansetron ODT 4 mg disintegrating tablet Activity Normal activity as tolerated Diet Continue on the same type of diet and foods as you were eating before your admission. Drink plenty of water. Allergies Compazine [prochlorperazine] and Sulfa (sulfonamide antibiotics) Hospital Course History of Present Illness Emigdio Apodaca is an 58 y.o. female who came [...] done inpati (more content not included)... Normal [facility] POCT GLUCOSE METER UNSOLICIT ED RESULTSon 01-05-2024 Glucose [Mass/Vol] 102 mg/dL Normal 70-105 [facility] Comment on above: Order Comment: Waive d Testing in the ED is performed under the ED CLIA certificate #[id number]. Result Comment: srab ee Performed By: #### L [id number] ####[facility] ([facility])[address] [place] [address] 30on 01-04-2024 30 The patient is Moder ately Stable - Low risk of patient condition declining or worsening The patient's goals for the shift include comfort The clinical goals for the shift include comfort Normal [facility] 30 Daily Case Managemen t Update Multidisciplinary [...] dizziness/recurrent falls/outpt treatment failure Level of Consultation Inseamer assumes full responsibility 01/02/24 0037 Ancillary Consults [...] OT? Answer: weakness, falls 01/02/24 1320 Normal [facility] 30on 01-03-2024 30 Problem: Pain - Adul [...] shift include comfort, stability and safety Normal [facility] 30 The patient is Moder ately Stable - Low risk of patient condition declining or worsening The patient's goals for the shift include comfort The clinical goals for the shift include comfort, stability and safety Normal [facility] BASIC METABOLIC PANELon 04-0 Anion gap [Moles/Vol] 9 mmol/L Normal 7-20 [facility] Comment on above: Performed By: #### L [id number] #### [facility] ([facility]) [address] [place] [address] Calcium [Mass/Vol] 8.3 mg/dL Low 8.6-10.3 [facility] Comment on above: Performed By: #### L [id number] #### [facility] ([facility]) [address] [place] [address] Chloride [Moles/Vol] 109 mmol/L High 98-107 [facility] Comment on above: Performed By: #### L [id number] #### [facility] ([facility]) [address] [place] [address] CO2 [Moles/Vol] 26 mmol/L Normal 21-31 [facility] Comment on above: Performed By: #### L [id number] #### [facility] ([facility]) [address] [place] [address] Creatinine [Mass/Vol] 0.71 mg/dL Normal 0.60-1.20 [facility] Comment on above: Performed By: #### L [id number] #### [facility] ([facility]) [address] [place] [address] GLOMERULAR FILTRATION RATE ML/MIN/1.73 SQ M.PREDICTED 97.9 mL/min/1.73m*2 Normal >60.0 [facility] Comment on above: Result Comment: The [facility]???s estimated glomerular filtration rate (eGFR) will no [...] of individuals. Performed By: #### L [id number] #### [facility] ([facility]) [address] [place] [address] Glucose [Mass/Vol] 89 mg/dL Normal 70-100 [facility] Comment on above: Performed By: #### L [id number] #### [facility] ([facility]) [address] [place] [address] Potassium [Moles/Vol] 3.5 mmol/L Normal 3.5-5.1 [facility] Comment on above: Performed By: #### L [id number] #### [facility] ([facility]) [address] [place] [address] Sodium [Moles/Vol] 140 mmol/L Normal 136-145 [facility] Comment on above: Performed By: #### L [id number] #### [facility] ([facility]) [address] [place] [address] Urea nitrogen [Mass/Vol] 6 mg/dL Low 7-25 [facility] Comment on above: Performed By: #### L [id number] #### [facility] ([facility]) [address] [place] [address] UREA NITROGEN/CREATININE (MASS RATIO) IN SER/PLAS 8.5 Normal [facility] Comment on above: Performed By: #### L [id number] #### [facility] ([facility]) [address] [place] [address] CBC WITH AUTO DIFFERENTIALon 01-03-2024 Basophils (Bld) [#/Vol] 0.01 10*3/uL Normal 0.00-0.20 [facility] Comment on above: Performed By: #### L [id number] #### [facility] ([facility]) [address] [place] [address] Basophils/100 WBC (Bld) 0.4 % Normal 0.0-1.0 [facility] Comment on above: Performed By: #### L [id number] #### [facility] [address] [place] [address] Eosinophils (Bld) [#/Vol] 0.11 10*3/uL Normal 0.00-0.50 [facility] Comment on above: Performed By: #### L [id number] #### [facility] ([facility]) [address] [place] [address] Eosinophils/100 WBC (Bld) 4.4 % Normal 0.0-6.0 [facility] Comment on above: Performed By: #### L [id number] #### [facility] ([facility]) [address] [place] [address] Erythrocyte distribution width (RBC) [Ratio] 13.6 % Normal 11.5-15.0 [facility] Comment on above: Performed By: #### L [id number] #### [facility] ([facility]) [address] [place] [address] ERYTHROCYTE MEAN CORPUSCULAR HEMOGLOBIN CONCENTRATION (G/DL) BY AUTOMATED 31.6 g/dL Low 32.0-35.0 [facility] Comment on above: Performed By: #### L [id number] #### [facility] ([facility]) [address] [place] [address] Hematocrit (Bld) [Volume fraction] 41.4 % Normal 36.0-48.0 [facility] Comment on above: Performed By: #### L [id number] #### [facility] ([facility]) [address] [place] [address] Hemoglobin (Bld) [Mass/Vol] 13.1 g/dL Normal 12.0-15.0 [facility] Comment on above: Performed By: #### L [id number] #### [facility] ([facility]) [address] [place] [address] Immature granulocytes (Bld) [#/Vol] 0.00 10*3/uL Normal 0.00-0.20 [facility] Comment on above: Performed By: #### L [id number] #### [facility] ([facility]) [address] [place] [address] Immature granulocytes/100 WBC (Bld) 0.0 % Normal 0.0-1.0 [facility] Comment on above: Performed By: #### L [id number] #### [facility] ([facility]) [address] [place] [address] Lymphocytes (Bld) [#/Vol] 1.12 10*3/uL Low 1.20-4.00 [facility] Comment on above: Performed By: #### L [id number] #### [facility] ([facility]) [address] [place] [address] Lymphocytes/100 WBC (Bld) 44.8 % Normal 20.0-45.0 [facility] Comment on above: Performed By: #### L [id number] #### [facility] ([facility]) [address] [place] [address] MCH (RBC) [Entitic mass] 28.5 pg Normal 27.0-33.0 [facility] Comment on above: Performed By: #### L [id number] #### [facility] ([facility]) [address] [place] [address] MCV (RBC) [Entitic vol] 90.2 fL Normal 82.0-98.0 [facility] Comment on above: Performed By: #### L [id number] #### [facility] ([facility]) [address] [place] [address] Monocytes (Bld) [#/Vol] 0.24 10*3/uL Normal 0.10-1.00 [facility] Comment on above: Performed By: #### L [id number] #### [facility] ([facility]) [address] [place] [address] Monocytes/100 WBC (Bld) 9.6 % Normal 5.0-12.0 [facility] Comment on above: Performed By: #### L [id number] #### [facility] ([facility]) [address] [place] [address] Neutrophils (Bld) [#/Vol] 1.02 10*3/uL Low 1.60-7.60 [facility] Comment on above: Performed By: #### L [id number] #### [facility] ([facility]) [address] [place] [address] Neutrophils/100 WBC (Bld) 40.8 % Normal 40.0-72.0 [facility] Comment on above: Performed By: #### L [id number] #### [facility] ([facility]) [address] [place] [address] NRBC (PER 100 WBCS) BY AUTOMATED COUNT 0.0 % Normal 0 [facility] Comment on above: Performed By: #### L [id number] #### [facility] ([facility]) [address] [place] [address] PLATELETS (10*3/UL) IN BLOOD AUTOMATED COUNT 203 10*3/uL Normal 150-400 [facility] Comment on above: Performed By: #### L [id number] #### [facility] ([facility]) [address] [place] [address] RBC (Bld) [#/Vol] 4.59 10*6/uL Normal 3.80-5.00 [facility] Comment on above: Performed By: #### L [id number] #### [facility] ([facility]) [address] [place] [address] WBC (Bld) [#/Vol] 2.50 10*3/uL Low 4.00-10.60 [facility] Comment on above: Performed By: #### L [id number] #### [facility] [address] [place] [address] FOLATEon 01-03-2024 FOLATE (NG/ML) IN SER/PLAS 34.0 ng/mL Normal 6.6-1000 [facility] Comment on above: Performed By: #### L [id number] #### [facility] ([facility]) [address] [place] [address] MAGNESIUMon 01-03-2024 Magnesium [Mass/Vol] 1.9 mg/dL Normal 1.9-2.7 [facility] Comment on above: Performed By: #### L [id number] #### [facility] ([facility]) [address] [place] [address] VITAMIN B12on 01-03-2024 Cobalamin (Vitamin B12) [Mass/Vol] 148 pg/mL Low 180-914 [facility] Comment on above: Result Comment: REFE RENCE RANGES: 180-914 pg/mL Normal 145-179 pg/mL Indeterminate <145 pg/mL Deficient Performed By: #### L [id number] #### [facility] ([facility]) [address] [place] [address] 30on 01-02-2024 30 The patient is Moder ately Stable - Low risk of patient condition declining or worsening The patient's goals for the shift include comfort The clinical goals for the shift include comfort, stability and safety Normal [facility] BASIC METABOLIC PANELon 04-0 Anion gap [Moles/Vol] 8 mmol/L Normal 7-20 [facility] Comment on above: Performed By: #### L [id number] #### [facility] ([facility]) [address] [place] [address] Calcium [Mass/Vol] 8.6 mg/dL Normal 8.6-10.3 [facility] Comment on above: Performed By: #### L [id number] #### [facility] [address] [place] [address] Chloride [Moles/Vol] 109 mmol/L High 98-107 [facility] Comment on above: Performed By: #### L [id number] #### [facility] [address] [place] [address] CO2 [Moles/Vol] 28 mmol/L Normal 21-31 [facility] Comment on above: Performed By: #### L [id number] #### [facility] ([facility]) [address] [place] [address] Creatinine [Mass/Vol] 0.82 mg/dL Normal 0.60-1.20 [facility] Comment on above: Performed By: #### L [id number] #### [facility] ([facility]) [address] [address] GLOMERULAR FILTRATION RATE ML/MIN/1.73 SQ M.PREDICTED 82.3 mL/min/1.73m*2 Normal >60.0 [facility] Comment on above: Result Comment: The [facility]???s estimated glomerular filtration rate (eGFR) will no [...] group of individuals. Performed By: #### L [id number] #### [facility] ([facility]) [address] [place] [address] Glucose [Mass/Vol] 96 mg/dL Normal 70-100 [facility] Comment on above: Performed By: #### L [id number] #### [facility] ([facility]) [address] [place] [address] Potassium [Moles/Vol] 3.6 mmol/L Normal 3.5-5.1 [facility] Comment on above: Performed By: #### L [id number] #### [facility] ([facility]) [address] [place] [address] Sodium [Moles/Vol] 141 mmol/L Normal 136-145 [facility] Comment on above: Performed By: #### L [id number] #### [facility] [address] [place] [address] Urea nitrogen [Mass/Vol] 7 mg/dL Normal 7-25 [facility] [facility] Comment on above: Performed By: #### L [id number] #### [facility] [address] [place] [address] UREA NITROGEN/CREATININE (MASS RATIO) IN SER/PLAS 8.5 Normal [facility] Comment on above: Performed By: #### L [id number] #### [facility] [address] [place] [address] CBCon 01-02-2024 Erythrocyte distribution width (RBC) [Ratio] 13.8 % Normal 11.5-15.0 [facility] Comment on above: Performed By: #### L [id number] #### [facility] ([facility]) [address] [place] [address] ERYTHROCYTE MEAN CORPUSCULAR HEMOGLOBIN CONCENTRATION (G/DL) BY AUTOMATED 31.6 g/dL Low 32.0-35.0 [facility] Comment on above: Performed By: #### L [id number] #### [facility] [address] [place] [address] Hematocrit (Bld) [Volume fraction] 44.0 % Normal 36.0-48.0 [facility] Comment on above: Performed By: #### L [id number] #### [facility] [address] [facility] [place] [address] Hemoglobin (Bld) [Mass/Vol] 13.9 g/dL Normal 12.0-15.0 [facility] Comment on above: Performed By: #### L [id number] #### [facility] [address] [address] MCH (RBC) [Entitic mass] 29.0 pg Normal 27.0-33.0 [facility] Comment on above: Performed By: #### L [id number] #### [facility] [address] [place] [address] MCV (RBC) [Entitic vol] 91.9 fL Normal 82.0-98.0 [facility] Comment on above: Performed By: #### L [id number] #### [facility] ([facility]) [address] [place] [address] PLATELETS (10*3/UL) IN BLOOD AUTOMATED COUNT 201 10*3/uL Normal 150-400 [facility] Comment on above: Performed By: #### L [id number] #### [facility] ([facility]) [address] [place] [address] RBC (Bld) [#/Vol] 4.79 10*6/uL Normal 3.80-5.00 [facility] Comment on above: Performed By: #### L [id number] #### [facility] ([facility]) [address] [place] [address] WBC (Bld) [#/Vol] 3.38 10*3/uL Low 4.00-10.60 [facility] Comment on above: Performed By: #### L [id number] #### [facility] ([facility]) [address] [place] [address] CONSULTon 01-02-2024 CONSULT Reason For Consult consatnt dizziness Referring Provider: Pam Way MD History Of Present Illness Emigdio Apodaca is a 58 y.o. female who presented to [facility] emergency department with complaints dizziness for whom [...] by Dr. Tony Amaya on 12/29/2023 in [place] due to this persistent dizziness. She was [...] 77 -- 99 % -- -- 01/01/24 2359 113/76 -- -- 76 -- 99 % -- -- 01/01/242350 -- -- -- 85 -- 97 % [...] Oral -- -- -- -- -- 01/01/24 185 147/78 -- -- 80 16 91 % [...] intact. Crani (more content not included)... Normal [facility] EDPROVon 01-02-2024 EDPROV HPI Chief Complaint Patient presents with [...] Temp Source Heart Rate Source Patient Position 01/01/24185201/01/24 18501/01/24185201/01/241852 91 % Oral Monitor Sitting BP Location FiO2 (%) 01/01/241852 -- Left arm Physical Exam Procedures Labs Reviewed URINALYSIS WITH REFLEX CULTURE - Abnormal Result Value Color, Urine Straw (*) Clarity, Urine Clear pH, Urine 6.0 Leukocytes, Urine Negative Nitrite, Urine Negative Protein, Urine Negative Glucose, Urine Negative Bilirubin, Urine Negative Specific Blaine, Urine 1.041 (*) Ketones, Urine Trace (*) [...] Procedure Abnormality Status --------- ------ CBC auto differential[[id number]] Abnormal Final result Please view results for [...] & MDM ED Course as of 01/02/24 230 Mon Jan 01, 2024 2134 Per cardiology note 10/24/23: Stress test 09/2023 was negative for ischemia TTE 09/06/23 normal LVEF 60%, mildly elevated RVSP, mild TR [JS] 2300 Pt was signed out to ED attending (Dr Bautista) at shift change. All labs (except CBC) and imaging (except CXR) pending. Pt will likely need admi (more content not included)... Normal [facility] T4, FREEon 01-02-2024 THYROXINE (T4) FREE (NG/DL) IN SER/PLAS 1.66 ng/dL Normal 0.71-1.85 [facility] Comment on above: Performed By: #### L [id number] ####[facility] ([facility])[address] [place] [address] TSH3 REFLEX TO FT4on 024 THYROTROPIN (MIU/L) IN SER/PLAS BY DETECTION LIMIT <= 0.05 MIU/L 0.01 mIU/L Low 0.34-5.60 [facility] Comment on above: Performed By: #### L [id number] #### [facility] ([facility]) [address] [place] [address] CBC WITH AUTO DIFFERENTIALon 01-01-2024 Basophils (Bld) [#/Vol] 0.02 10*3/uL Normal 0.00-0.20 [facility] Comment on above: Performed By: #### L [id number] #### [facility] ([facility]) [address] [place] [address] Basophils/100 WBC (Bld) 0.6 % Normal 0.0-1.0 [facility] Comment on above: Performed By: #### L [id number] #### [facility] ([facility]) [address] [place] [address] Eosinophils (Bld) [#/Vol] 0.09 10*3/uL Normal 0.00-0.50 [facility] Comment on above: Performed By: #### L [id number] #### [facility] ([facility]) [address] [place] [address] Eosinophils/100 WBC (Bld) 2.6 % Normal 0.0-6.0 [facility] Comment on above: Performed By: #### L [id number] #### [facility] [address] [place] [address] Erythrocyte distribution width (RBC) [Ratio] 13.6 % Normal 11.5-15.0 [facility] Comment on above: Performed By: #### L [id number] #### [facility] ([facility]) [address] [place] [address] ERYTHROCYTE MEAN CORPUSCULAR HEMOGLOBIN CONCENTRATION (G/DL) BY AUTOMATED 33.9 g/dL Normal 32.0-35.0 [facility] Comment on above: Performed By: #### L [id number] #### [facility] ([facility]) [address] [place] [address] Hematocrit (Bld) [Volume fraction] 42.2 % Normal 36.0-48.0 [facility] Comment on above: Performed By: #### L [id number] #### [facility] ([facility]) [address] [place] [address] Hemoglobin (Bld) [Mass/Vol] 14.3 g/dL Normal 12.0-15.0 [facility] Comment on above: Performed By: #### L [id number] #### [facility] ([facility]) [address] [place] [address] Immature granulocytes (Bld) [#/Vol] 0.02 10*3/uL Normal 0.00-0.20 [facility] Comment on above: Performed By: #### L [id number] #### [facility] ([facility]) [address] [place] [address] Immature granulocytes/100 WBC (Bld) 0.6 % Normal 0.0-1.0 [facility] Comment on above: Performed By: #### L [id number] #### [facility] ([facility]) [address] [place] [address] Lymphocytes (Bld) [#/Vol] 1.11 10*3/uL Low 1.20-4.00 [facility] Comment on above: Performed By: #### L [id number] #### [facility] ([facility]) [address] [place] [address] Lymphocytes/100 WBC (Bld) 32.1 % Normal 20.0-45.0 [facility] Comment on above: Performed By: #### L [id number] #### [facility] ([facility]) [address] [place] [address] MCH (RBC) [Entitic mass] 29.0 pg Normal 27.0-33.0 [facility] Comment on above: Performed By: #### L [id number] #### [facility] ([facility]) [address] [place] [address] MCV (RBC) [Entitic vol] 85.6 fL Normal 82.0-98.0 [facility] Comment on above: Performed By: #### L [id number] #### [facility]) [address] [place] [address] Monocytes (Bld) [#/Vol] 0.28 10*3/uL Normal 0.10-1.00 [facility] Comment on above: Performed By: #### L [id number] #### [facility] ([facility]) [address] [place] [address] Monocytes/100 WBC (Bld) 8.1 % Normal 5.0-12.0 [facility] Comment on above: Performed By: #### L [id number] #### [facility] ([facility]) [address] [place] [address] Neutrophils (Bld) [#/Vol] 1.94 10*3/uL Normal 1.60-7.60 [facility] Comment on above: Performed By: #### L [id number] #### [facility] ([facility]) [address] [place] [address] Neutrophils/100 WBC (Bld) 56.0 % Normal 40.0-72.0 [facility] Comment on above: Performed By: #### L [id number] #### [facility] ([facility]) [address] [place] [address] NRBC (PER 100 WBCS) BY AUTOMATED COUNT 0.0 % Normal 0 [facility] Comment on above: Performed By: #### L [id number] #### [facility] ([facility]) [address] [place] [address] PLATELETS (10*3/UL) IN BLOOD AUTOMATED COUNT 222 10*3/uL Normal 150-400 [facility] Comment on above: Performed By: #### L [id number] #### [facility] ([facility]) [address] [place] [address] RBC (Bld) [#/Vol] 4.93 10*6/uL Normal 3.80-5.00 [facility] Comment on above: Performed By: #### L [id number] #### [facility] ([facility]) [address] [place] [address] WBC (Bld) [#/Vol] 3.46 10*3/uL Low 4.00-10.60 [facility] Comment on above: Performed By: #### L [id number] #### [facility] ([facility]) [address] [place] [address] COMPREHENSIVE METABOLIC PANE Balwinder 01-01-2024 Albumin [Mass/Vol] 4.1 g/dL Normal 3.5-5.7 [facility] Comment on above: Performed By: #### L [id number] #### [facility]) [address] [place] [address] ALP [Catalytic activity/Vol] 81 U/L Normal 34-104 [facility] Comment on above: Performed By: #### L [id number] #### [facility] ([facility]) [address] [place] [address] ALT [Catalytic activity/Vol] 10 U/L Normal 7-52 [facility] Comment on above: Performed By: #### L [id number] #### [facility] ([facility]) [address] [place] [address] Anion gap [Moles/Vol] 14 mmol/L Normal 7-20 [facility] Comment on above: Performed By: #### L [id number] #### [facility]) [address] [place] [address] AST [Catalytic activity/Vol] 20 U/L Normal 13-39 [facility] Comment on above: Performed By: #### L [id number] #### [facility] ([facility]) [address] [place] [address] Bilirubin [Mass/Vol] 0.5 mg/dL Normal 0.3-1.0 [facility] Comment on above: Performed By: #### L [id number] #### [facility] ([facility] [address] [place] [address] Calcium [Mass/Vol] 9.6 mg/dL Normal 8.6-10.3 [facility] Comment on above: Performed By: #### L [id number] #### [facility] ([facility]) [address] [place] [address] Chloride [Moles/Vol] 106 mmol/L Normal 98-107 [facility] Comment on above: Performed By: #### L [id number] #### [facility] ([facility]) [address] [place] [address] CO2 [Moles/Vol] 24 mmol/L Normal 21-31 [facility] Comment on above: Performed By: #### L [id number] #### [facility] ([facility]) [address] [place] [address] Creatinine [Mass/Vol] 0.82 mg/dL Normal 0.60-1.20 [facility] Comment on above: Performed By: #### L [id number] #### [facility] ([facility]) [address] [place] [address] GLOMERULAR FILTRATION RATE ML/MIN/1.73 SQ M.PREDICTED 82.3 mL/min/1.73m*2 Normal >60.0 [facility] Comment on above: Result Comment: The [facility]???s estimated glomerular filtration rate (eGFR) will no [...] group of individuals. Performed By: #### L [id number] #### [facility] ([facility]) [address] [place] [address] Glucose [Mass/Vol] 86 mg/dL Normal 70-100 [facility] Comment on above: Performed By: #### L [id number] #### [facility] ([facility]) [address] [place] [address] Potassium [Moles/Vol] 3.8 mmol/L Normal 3.5-5.1 [facility] Comment on above: Performed By: #### L [id number] #### [facility] ([facility]) [address] [place] [address] Protein [Mass/Vol] 6.7 g/dL Normal 6.0-8.3 [facility] Comment on above: Performed By: #### L [id number] #### [facility] ([facility]) [address] [place] [address] Sodium [Moles/Vol] 140 mmol/L Normal 136-145 [facility] Comment on above: Performed By: #### L [id number] #### [facility] ([facility]) [address] [place] [address] Urea nitrogen [Mass/Vol] 10 mg/dL Normal 7-25 [facility] Comment on above: Performed By: #### L [id number] #### [facility] ([facility]) [address] [place] [address] UREA NITROGEN/CREATININE (MASS RATIO) IN SER/PLAS 12.2 Normal [facility] Comment on above: Performed By: #### L [id number] #### [facility] ([facility]) [address] [place] [address] CT ABDOMEN PELVIS W IV CONTR Marquita 01-01-2024 CT ABDOMEN PELVIS W IV CONTRAST Clinical [...] function test evaluation. Electronically signed: Shari Mahoney. Not Vldtd Invalid Interpretation Code [facility] CT HEAD WO IV CONTRASTon CT HEAD [...] of the brain. Electronically signed: Shari Mahoney. Not Vldtd Invalid Interpretation Code [facility] CTA HEAD W IV CONTRASTon CTA HEAD [...] signed: Shari Turner Vldtd Invalid Interpretation Code [facility] CTA NECK W IV CONTRASTon CTA NECK [...] Patent cervical carotid arteries. Electronically signed: Shari Knight Invalid Interpretation Code [facility] EDNURSon 01-01-2024 EDNURS Pt arrives with fami ly to triage, states that pt has been seen at [place] [facility] multiple times for increased dizziness, vomiting, and diarrhea for the past 2 weeks. Pt states that she is suppose to get an MRI of her brain done at [facility] but has not scheduled it yet. Reports multiple falls d/t dizziness. Normal [facility] EDPROVon 01-01-2024 EDPROV [facility] [address] [facility] [id number] EMERGENCY DEPARTMENT ENCOUNTER 01/01/2024 CHIEF COMPLAINT Chief [...] Abnormal ECG, COPD (chronic obstructive pulmonary disease) ([facility]), and Hyperlipidemia. SURGICAL HISTORY has a past [...] Motor functio (more content not included)... Normal [facility] ETHANOLon 01-01-2024 ETHANOL (MG/DL) IN SER/PLAS <10 Normal [facility] Comment on above: Performed By: #### L [id number] ####[facility] [place] [address] ETHANOL CALCULATED (%) Normal Un [facility] Comment on above: Performed By: #### L [id number] ####[facility] ([facility])[address] [place] [address] LACTIC ACID WITH 4 HOUR REFL EXon 01-01-2024 LACTATE (MMOL/L) IN SER/PLAS 0.8 mmol/L Normal 0.5-2.2 [facility] Comment on above: Performed By: #### L [id number] #### [facility] ([facility]) [address] [facility] [place] [address] LIPASEon 01-01-2024 LIPASE (U/L) IN SER/PLAS 47 U/L Normal 11-82 [facility] Comment on above: Performed By: #### L [id number] #### [facility] [address] [facility] [place] [address] MAGNESIUMon 01-01-2024 Magnesium [Mass/Vol] 2.1 mg/dL Normal 1.9-2.7 [facility] Comment on above: Performed By: #### L [id number] #### [facility] [address] [facility] [place] [address] T4, FREEon 01-01-2024 THYROXINE (T4) FREE (NG/DL) IN SER/PLAS 1.44 ng/dL Normal 0.71-1.85 [facility] Comment on above: Performed By: #### L [id number] ####[facility] ([facility]ER)[address] [place] [address] TOXICOLOGY PANEL URINEon AMPHETAMINE+METHAMPHET AMINE SCREEN (PRESENCE) IN URINE Negative Normal Negative [facility] Comment on above: Performed By: #### L [id number] #### [facility] ([facility]) [address] [place] [address] BARBITURATES PRESENCE IN URINE BY SCREEN METHOD Negative Normal Negative [facility] Comment on above: Performed By: #### L [id number] #### [facility] ([facility]) [address] [place] [address] Benzodiazepines Ql (U) Negative Normal Negative [facility] Comment on above: Performed By: #### L [id number] #### [facility] ([facility]) [address] [place] [address] CANNABINOID (PRESENCE) IN URINE BY SCREEN METHOD Negative Normal Negative [facility] Comment on above: Performed By: #### L [id number] #### [facility] ([facility]) [address] [place] [address] Cocaine Ql (U) Negative Normal Negative [facility] Comment on above: Performed By: #### L [id number] #### [facility] ([facility]) [address] [place] [address] METHADONE (PRESENCE) IN URINE BY SCREEN METHOD Negative Normal Negative [facility] Comment on above: Performed By: #### L [id number] #### [facility] ([facility]) [address] [place] [address] OPIATES (PRESENCE) IN URINE BY SCREEN METHOD Negative Normal Negative [facility] Comment on above: Performed By: #### L [id number] #### [facility] ([facility]) [address] [place] [address] PHENCYCLIDINE PRESENCE IN URINE BY SCREEN METHOD Negative Normal Negative [facility] Comment on above: Performed By: #### L [id number] #### [facility] ([facility]) [address] [place] [address] Propoxyphene Screen Ql (U) Negative Normal Negative [facility] Comment on above: Performed By: #### L [id number] #### [facility] ([facility]) [address] [place] [address] TRICYCLIC ANTIDEPRESSANTS (PRESENCE) IN URINE Negative Normal Negative [facility] Comment on above: Performed By: #### L [id number] #### [facility] ([facility]) [address] [facility] [place] [address] TROPONIN Ion 01-01-2024 Troponin I.cardiac [Mass/Vol] 0.00 ng/mL Normal 0.00-0.04 [facility] Comment on above: Performed By: #### L [id number] ####[facility] ([facility])[address] [place] [address] TSH3 REFLEX TO FT4on 024 THYROTROPIN (MIU/L) IN SER/PLAS BY DETECTION LIMIT <= 0.05 MIU/L 0.02 mIU/L Low 0.34-5.60 [facility] Comment on above: Performed By: #### L [id number] #### [facility] ([facility]) [address] [facility] [place] [address] URINALYSIS WITH REFLEX CULTU REon 01-01-2024 BILIRUBIN, TOTAL PRESENCE IN URINE Negative Normal Negative [facility] Comment on above: Order Comment: Micro scopics not performed on urines with negative chemical reactions unless requested on original order. Performed By: #### L [id number] #### [facility] ([facility]) [address] [facility] [place] [address] Clarity (U) Clear Normal Clear [facility] Comment on above: Order Comment: Micro scopics not performed on urines with negative chemical reactions unless requested on original order. Performed By: #### L [id number] #### [facility] ([facility]) [address] [facility] [place] [address] Color (U) Straw Abnormal Yellow [facility] Comment on above: Order Comment: Micro scopics not performed on urines with negative chemical reactions unless requested on original order. Performed By: #### L [id number] #### [facility] ([facility]) [address] [place] [place] [address] Glucose (U) [Mass/Vol] Negative Normal Negative [facility] Comment on above: Order Comment: Micro scopics not performed on urines with negative chemical reactions unless requested on original order. Performed By: #### L [id number] #### [facility] [address] [place] [address] HEMOGLOBIN PRESENCE IN URINE Negative Normal Negative [facility] Comment on above: Order Comment: Micro scopics not performed on urines with negative chemical reactions unless requested on original order. Performed By: #### L [id number] #### [facility] ([facility]) [address] [place] [address] Ketones Ql (U) Trace Abnormal Negative [facility] Comment on above: Order Comment: Micro scopics not performed on urines with negative chemical reactions unless requested on original order. Performed By: #### L [id number] #### [facility] [facility] ([facility]) [address] [place] [address] LEUKOCYTE ESTERASE PRESENCE IN URINE BY TEST STRIP Negative Normal Negative [facility] Comment on above: Order Comment: Micro scopics not performed on urines with negative chemical reactions unless requested on original order. Performed By: #### L [id number] #### [facility] ([facility]) [address] [place] [address] NITRITE PRESENCE IN URINE Negative Normal Negative [facility] Comment on above: Order Comment: Micro scopics not performed on urines with negative chemical reactions unless requested on original order. Performed By: #### L [id number] #### [facility] [address] [place] [address] pH (U) 6.0 [pH] Normal 5.0-8.0 [facility] Comment on above: Order Comment: Micro scopics not performed on urines with negative chemical reactions unless requested on original order. Performed By: #### L [id number] #### [facility] [address] [place] [address] Protein (U) [Mass/Vol] Negative Normal Negative [facility] [place] [facility] Comment on above: Order Comment: Micro scopics not performed on urines with negative chemical reactions unless requested on original order. Performed By: #### L [id number] #### [facility] ([facility]) [address] [place] [address] Specific gravity (U) [Rel density] 1.041 High 1.015-1.02 0 [facility] Comment on above: Order Comment: Micro scopics not performed on urines with negative chemical reactions unless requested on original order. Performed By: #### L [id number] #### [facility] ([facility]) [address] [place] [address] Office Visiton 10-24-2023 Follow-up visit [id number] PaulieTame la S 1965 F Date Provider Department Center 10/24/2023 MARI ACHARYA Family History Problem Relation Age of Onset Alzheimer's disease Father Family Status - Relation Status Age at Mother Alive Father Level of Service:06509 CA OFFICE/OUTPATIENT ESTABLISHED MOD MDM 30 MIN Normal [facility] Orders Onlyon 09-01-2023 Orders Only [id number] Paulie,Tame la S 1965 F Date Provider Department Center 09/01/2023 MARVIN FAJARDO Family History Problem Relation Age of Onset Alzheimer's disease Father Family Status - Relation Status Age at Mother Alive Father Normal [facility] CBC AUTO DIFFon 01-07-2023 BASO # 0.0 103/ul Normal 0.0-0.1 [facility] Comment on above: Performed By: #### C BC ####[facility] [address]uqazo[address] [place] [address]Dr. Shahbaz Rogel Basophils/100 WBC (Bld) 0.3 % Normal 0.2-2.0 [facility] Comment on above: Performed By: #### C BC ####[facility] Ntsvwejwdn[address] [place] [address]Dr. Shahbaz Rogel EO # 0.0 103/ul Normal 0.0-0.7 [facility] Comment on above: Performed By: #### C BC ####[facility] Vnqvxaamru5[address] [place] [id number]. Shahbaz Rogel Eosinophils/100 WBC (Bld) 0.0 % Critically low 0.9-7.0 [facility] Comment on above: Performed By: #### C BC ####[facility] Naywayzucj[address] [place] [address]Dr. Shahbaz Rogel Erythrocyte distribution width (RBC) [Ratio] 13.5 % Normal 11.0-15.0 [facility] Comment on above: Performed By: #### C BC ####[facility] Rudhtzqjay[address] [place], [place] [address]Dr. Shahbaz Rogel Hematocrit (Bld) [Volume fraction] 36.4 % Normal 36.0-48.0 [facility] Comment on above: Performed By: #### C BC ####[facility] Ehdqnpjyzc[address] [place], [place] [address]Dr. Shahbaz Rogel Hemoglobin (Bld) [Mass/Vol] 11.6 g/dL Critically low 12.0-16.0 [facility] Comment on above: Performed By: #### C BC ####[facility] Jbuvszhjdg[address] [place], [place] [address]Dr. Shahbaz Rogel IG # 0.06 10e3/ul Critically high 0.00-0.03 [facility] Comment on above: Performed By: #### C BC ####[facility] Pckjaujmep[address] [place], [place] [address]Dr. Shahbaz Rogel IG % 1.5 % Critically high 0.0-0.5 [facility] Comment on above: Performed By: #### C BC ####[facility] Eckpanplzq300[address] [place], [place] [address]Dr. Shahbaz Rogel LYMPH # 0.7 103/ul Critically low 1.2-3.8 [facility] Comment on above: Performed By: #### C BC ####[facility] Aroetcovoy[address] [place], [place] [address]Dr. Shahbaz Rogel Lymphocytes/100 WBC (Bld) 16.6 % Critically low 20.5-60.0 [facility] Comment on above: Performed By: #### C BC ####[facility] Cjotsqmpix[address] [place] [address]Dr. Shahbaz Rogel MANUAL DIFF REQ NO Normal [facility] Comment on above: Performed By: #### C BC ####[facility] Gyuyaudjap[address]62 [place] [phone]. Shahbaz Rogel MCH (RBC) [Entitic mass] 27.6 pg Normal 26.7-34.0 [facility] Comment on above: Performed By: #### C BC ####[facility] Zpzxfwofku3787 [place] [phone]. Shahbaz Rogel MCHC (RBC) [Mass/Vol] 31.9 g/dL Normal 29.9-35.2 [facility] Comment on above: Performed By: #### C BC ####[facility] Tpnvzyedgj42[address] [place], [place] [address]Dr. Shahbaz Rogel MCV (RBC) [Entitic vol] 86.5 fL Normal 81.0-99.0 [facility] Comment on above: Performed By: #### C BC ####[facility] Dixzypvcnb[address] [place], [place] [address]Dr. Shahbaz Rogel MONO # 0.2 103/ul Critically low 0.3-0.8 [facility] Comment on above: Performed By: #### C BC ####[facility] Upnutsovhp[address] [place], [place] [address]Dr. Shahbaz Rogel Monocytes/100 WBC (Bld) 5.0 % Normal 1.7-12.0 [facility] Comment on above: Performed By: #### C BC ####[facility] Aisxzklnle856[address] [place], [place] [address]Dr. Shahbaz Rogel NEUT # 3.1 103/ul Normal 1.4-6.5 [facility] Comment on above: Performed By: #### C BC ####[facility] Nzfsrzdscm[address] [place], [place] [id number]. Shahbaz Rogel Neutrophils/100 WBC (Bld) 76.6 % Critically high 43.0-75.0 [facility] Comment on above: Performed By: #### C BC ####[facility] Okozqznnbi92[address] [place] [address]Dr. Shahbaz Rogel Platelet mean volume (Bld) [Entitic vol] 9.9 fL Normal 9.5-13.5 [facility] Comment on above: Performed By: #### C BC ####[facility] Qcsrxpjwcv8386 [place] [address]Dr. Shahbaz Rogel PLT 194 103/ul Normal 150-450 [facility] Comment on above: Performed By: #### C BC ####[facility] Pprnzzyuud237[address] [place], [place] [address]Dr. Shahbaz Rogel RBC 4.21 106/ul Normal 4.20-5.40 [facility] Comment on above: Performed By: #### C BC ####[facility] Bzwddroxfj8[address] [place], [place] [address]Dr. Shahbaz Rogel WBC 4.0 103/ul Normal 4.0-11.0 [facility] Comment on above: Performed By: #### C BC ####[facility] Lhycqylavh[address] [place], [place] [address]Dr. Shahbaz Rogel PROF CHEM 8 (BAS METB)on Anion gap [Moles/Vol] 9.5 mmol/L Normal [facility] Comment on above: Performed By: #### B MP ####[facility] Nqbnqyvvxg[address] [place], [place] [address]Dr. Shahbaz Rogel Calcium [Mass/Vol] 8.8 mg/dL Normal 8.5-10.1 [facility] Comment on above: Performed By: #### B MP ####[facility] Iykjvkuvgf2440[address] [place], [place] [address]Dr. Shahbaz Rogel Chloride [Moles/Vol] 106 mmol/L Normal 98-107 [facility] Comment on above: Performed By: #### B MP ####[facility] Rwitlokjhh9[address] [place], [place] [address]DrChen Rogel CO2 [Moles/Vol] 29.6 mmol/L Normal 21.0-32.0 [facility] Comment on above: Performed By: #### B MP ####[facility] Oiwtpawthn0[address] [place] [phone]. Shahbaz Rogel Creatinine [Mass/Vol] 0.80 mg/dL Normal 0.55-1.02 [facility] Comment on above: Performed By: #### B MP ####[facility] Utzdgnjlcx9532 [place] [phone]. Shahbaz Rogel EGFR-AF PUERTO RICAN >60 Normal >=60 [facility] Comment on above: Performed By: #### B MP ####[facility] Atfrkkeawj65[address] [place] [phone]. Shahbaz Rogel EGFR-NON AF PUERTO RICAN >60 Normal >=60 [facility] Comment on above: Performed By: #### B MP ####[facility] Qyyplawzyf244[address] [place], [place] [address]Dr. Shahbaz Juan F Glucose [Mass/Vol] 137 mg/dL Critically high 74-106 T [facility] Comment on above: Performed By: #### B MP ####[facility] Sgdhqntchl[address] [place], [place] [address]Dr. Shahbaz Rogel Potassium [Moles/Vol] 4.1 mmol/L Normal 3.5-5.1 [facility] Comment on above: Performed By: #### B MP ####[facility] Sjacjoetyl412[address] [place], [place] [address]Dr. Lilajarrod Juan F Sodium [Moles/Vol] 141 mmol/L Normal 136-145 [facility] Comment on above: Performed By: #### B MP ####[facility] Tckennmqnx[address] [place], [place] [address]Dr. Shahbaz Juan F Urea nitrogen [Mass/Vol] 18.0 mg/dL Normal 7.0-18.0 [facility] Comment on above: Performed By: #### B MP ####[facility] Fonznsdlkc[address] [place] [address]Dr. Shahbaz Rogel Urea nitrogen/Creatinine [Mass ratio] 22.5 mg/mg Normal [facility] Comment on above: Performed By: #### B MP ####[facility] Kteelcmdrk86[address] [place] [phone]. Lilajarrod Rogel CBC AUTO DIFFon 01-06-2023 BASO # 0.0 103/ul Normal 0.0-0.1 [facility] Comment on above: Performed By: #### C BC ####[facility] Mdpattqleu190[address] [place], [place] [address]Dr. Shahbaz Rogel Basophils/100 WBC (Bld) 0.0 % Critically low 0.2-2.0 [facility] Comment on above: Performed By: #### C BC ####[facility] Majfdvjxoi706[address] [place], [place] [address]Dr. Shahbaz Rogel EO # 0.0 103/ul Normal 0.0-0.7 [facility] Comment on above: Performed By: #### C BC ####[facility] Utkbwcubzx[address] [place], [place] [address]Dr. Shahbaz Rogel Eosinophils/100 WBC (Bld) 0.0 % Critically low 0.9-7.0 [facility] Comment on above: Performed By: #### C BC ####[facility] Kzmzufvuhx813[address] [place], [place] [address]Dr. Shahbaz Rogel Erythrocyte distribution width (RBC) [Ratio] 13.8 % Normal 11.0-15.0 [facility] Comment on above: Performed By: #### C BC ####[facility] Rlhaejlarj76[address] [place], [place] [address]Dr. Shahbaz Rogel Hematocrit (Bld) [Volume fraction] 36.9 % Normal 36.0-48.0 [facility] Comment on above: Performed By: #### C BC ####[facility] Ozkzvsaewx22[address] [place], [place] [address]Dr. Shahbaz Rogel Hemoglobin (Bld) [Mass/Vol] 11.8 g/dL Critically low 12.0-16.0 [facility] Comment on above: Performed By: #### C BC ####[facility] Lwmmhisdpb99[address] [place], [place] [address]Dr. Shahbaz Rogel IG # 0.04 10e3/ul Critically high 0.00-0.03 [facility] Comment on above: Performed By: #### C BC ####[facility] Fwfiyningn01[address] [place] [phone]. Shahbaz Rogel IG % 1.1 % Critically high 0.0-0.5 [facility] Comment on above: Performed By: #### C BC ####[facility] Kteblnhoja50[address] [place] [phone]. Shahbaz Rogel LYMPH # 0.5 103/ul Critically low 1.2-3.8 [facility] Comment on above: Performed By: #### C BC ####[facility] Uusmtkkvjd9[address] [place] [address]Dr. Shahbaz Juan F Lymphocytes/100 WBC (Bld) 13.9 % Critically low 20.5-60.0 [facility] Comment on above: Performed By: #### C BC ####[facility] Xyhnxjqyhf[address] [place], [place] [address]Dr. Shahbaz Rogel MANUAL DIFF REQ NO Normal [facility] Comment on above: Performed By: #### C BC ####[facility] Wkimsarozz[address] [place], [place] [address]Dr. Shahbaz Rogel MCH (RBC) [Entitic mass] 27.8 pg Normal 26.7-34.0 [facility] Comment on above: Performed By: #### C BC ####[facility] Mpwgkbdoly9735 [place] [address]Dr. Shahbaz Juan F MCHC (RBC) [Mass/Vol] 32.0 g/dL Normal 29.9-35.2 [facility] Comment on above: Performed By: #### C BC ####[facility] Ggukkpqude4493 [place] [address]Dr. Shahbaz Juan F MCV (RBC) [Entitic vol] 86.8 fL Normal 81.0-99.0 [facility] Comment on above: Performed By: #### C BC ####[facility] Zdcsikfnby[address] [place], [place] [address]Dr. Shahbaz Juan F MONO # 0.1 103/ul Critically low 0.3-0.8 [facility] Comment on above: Performed By: #### C BC ####[facility] Tragsxfvxd2117 [place] [phone]. Shahbaz Rogel Monocytes/100 WBC (Bld) 3.7 % Normal 1.7-12.0 [facility] Comment on above: Performed By: #### C BC ####[facility] Pkzelzjjax4595 [place] [phone]. Shahbaz Rogel NEUT # 3.1 103/ul Normal 1.4-6.5 [facility] Comment on above: Performed By: #### C BC ####[facility] Ovxsdoznur5362 [place] [address]Dr. Shahbaz Rogel Neutrophils/100 WBC (Bld) 81.3 % Critically high 43.0-75.0 [facility] Comment on above: Performed By: #### C BC ####[facility] Lcdvgykmuy37[address] [place] [address]Dr. Shahbaz Rogel Platelet mean volume (Bld) [Entitic vol] 9.8 fL Normal 9.5-13.5 [facility] Comment on above: Performed By: #### C BC ####[facility] Qdeesggcxk1739 [place] [address]Dr. Shahbaz Rogel PLT 184 103/ul Normal 150-450 [facility] Comment on above: Performed By: #### C BC ####[facility] Dlangnvvaj7[address] [place] [address]Dr. Shahbaz Rogel RBC 4.25 106/ul Normal 4.20-5.40 [facility] Comment on above: Performed By: #### C BC ####[facility] Vmvdziwtgz4256 [place] [phone]. Shahbaz Rogel WBC 3.8 103/ul Critically low 4.0-11.0 [facility] Comment on above: Performed By: #### C BC ####[facility] Vdvrkbrnwo4949 [place] [address]DrChen Shahbaz Rogel PROF CHEM 8 (BAS METB)on Anion gap [Moles/Vol] 9.2 mmol/L Normal [facility] Comment on above: Performed By: #### B MP ####[facility] Zsqrvsakwv5[address] [place] [address]Dr. Shahbaz Rogel Calcium [Mass/Vol] 8.6 mg/dL Normal 8.5-10.1 [facility] Comment on above: Performed By: #### B MP ####[facility] Uclvsgrugq8832 [place] [address]Dr. Shahbaz Rogel Chloride [Moles/Vol] 107 mmol/L Normal 98-107 [facility] Comment on above: Performed By: #### B MP ####[facility] Zmejsujdql8096 [place] [address]Dr. Shahbaz Rogel CO2 [Moles/Vol] 29.3 mmol/L Normal 21.0-32.0 [facility] Comment on above: Performed By: #### B MP ####[facility] Pwpddlkzhi65[address] [place], [place] [address]Dr. Shahbaz Rogel Creatinine [Mass/Vol] 0.79 mg/dL Normal 0.55-1.02 [facility] Comment on above: Performed By: #### B MP ####[facility] Mhsttibibw[address] [place], [place] [address]Dr. Shahbaz Rogel EGFR-AF PUERTO RICAN >60 Normal >=60 [facility] Comment on above: Performed By: #### B MP ####[facility] Ukyktbafyy508[address] [place], [place] [address]Dr. Shahbaz Rogel EGFR-NON AF PUERTO RICAN >60 Normal >=60 [facility] Comment on above: Performed By: #### B MP ####[facility] Xprgwzleqp5324 [place] [address]Dr. Shahbaz Rogel Glucose [Mass/Vol] 159 mg/dL Critically high 74-106 [facility] Comment on above: Performed By: #### B MP ####[facility] Wldnnpvbcu4122 [place] [address]Dr. Shahbaz Rogel Potassium [Moles/Vol] 3.5 mmol/L Normal 3.5-5.1 [facility] Comment on above: Performed By: #### B MP ####[facility] Touryamxxs7024 [place] [phone]. Shahbaz Rogel Sodium [Moles/Vol] 142 mmol/L Normal 136-145 [facility] Comment on above: Performed By: #### B MP ####[facility] Lopfeiixzs7156 [place] [phone]. Shahbaz Rogel Urea nitrogen [Mass/Vol] 21.0 mg/dL Critically high 7.0-18.0 [facility] Comment on above: Performed By: #### B MP ####[facility] Suqmjykahy9521 [place] [address]Dr. Shahbaz Juan F Urea nitrogen/Creatinine [Mass ratio] 26.6 mg/mg Normal [facility] Comment on above: Performed By: #### B MP ####[facility] Daofbzpzvc05[address] [place], [place] [address]Dr. Shahbaz Rogel XR CHEST 2 Von 01-06-2023 XR CHEST 2 V Normal [facility] CBC AUTO DIFFon 01-05-2023 BASO # 0.0 103/ul Normal 0.0-0.1 [facility] Comment on above: Performed By: #### C BC ####[facility] Imaiuuzboj59[address] [place], [place] [address]Dr. Shahbaz Juan F Basophils/100 WBC (Bld) 0.2 % Normal 0.2-2.0 [facility] Comment on above: Performed By: #### C BC ####[facility] Zmihpwdaja44[address] [place], [place] [address]Dr. Shahbaz Juan F EO # 0.0 103/ul Normal 0.0-0.7 [facility] Comment on above: Performed By: #### C BC ####[facility] Avbmquoxsx1632[address] [place], [place] [address]Dr. Shahbaz Juan F Eosinophils/100 WBC (Bld) 0.0 % Critically low 0.9-7.0 [facility] Comment on above: Performed By: #### C BC ####[facility] Cyznpsxffl6938[address] [place], [place] [address]Dr. Shahbaz Juan F Erythrocyte distribution width (RBC) [Ratio] 13.6 % Normal 11.0-15.0 [facility] Comment on above: Performed By: #### C BC ####[facility] Waqpbefqjv39[address] [place] [address]Dr. Shahbaz Rogel Hematocrit (Bld) [Volume fraction] 36.6 % Normal 36.0-48.0 [facility] Comment on above: Performed By: #### C BC ####[facility] Sazhsargcy0979 [place] [address]Dr. Shahbaz Rogel Hemoglobin (Bld) [Mass/Vol] 11.6 g/dL Critically low 12.0-16.0 [facility] Comment on above: Performed By: #### C BC ####[facility] Vymncwxgxq640[address] [place], [place] [address]Dr. Shahbaz Rogel IG # 0.03 10e3/ul Normal 0.00-0.03 [facility] Comment on above: Performed By: #### C BC ####[facility] Foevsloohr94[address] [place], [place] [address]Dr. Shahbaz Rogel IG % 0.5 % Normal 0.0-0.5 [facility] Comment on above: Performed By: #### C BC ####[facility] Iqyykutawp025[address] [place], [place] [address]DrChen Rogel LYMPH # 0.6 103/ul Critically low 1.2-3.8 [facility] Comment on above: Performed By: #### C BC ####[facility] Ihctspcpgz45[address] [place], [place] [address]Dr. Shahbaz Rogel Lymphocytes/100 WBC (Bld) 10.7 % Critically low 20.5-60.0 [facility] Comment on above: Performed By: #### C BC ####[facility] Pelqtijoat606[address] [place], [place] [address]Dr. Shahbaz Rogel MANUAL DIFF REQ NO Normal [facility] Comment on above: Performed By: #### C BC ####[facility] Rlgaprbnim76[address] [place], [place] [address]Dr. Shahbaz Rogel MCH (RBC) [Entitic mass] 27.7 pg Normal 26.7-34.0 [facility] Comment on above: Performed By: #### C BC ####[facility] Gtgycxfydg[address] [place] [address]Dr. Shahbaz Rogel MCHC (RBC) [Mass/Vol] 31.7 g/dL Normal 29.9-35.2 [facility] Comment on above: Performed By: #### C BC ####[facility] Cnreimlvag16[address] [place], [place] [address]Dr. Shahbaz Rogel MCV (RBC) [Entitic vol] 87.4 fL Normal 81.0-99.0 [facility] Comment on above: Performed By: #### C BC ####[facility] Mwupyulizd510[address] [place], [place] [address]DrChen Rogel MONO # 0.1 103/ul Critically low 0.3-0.8 [facility] Comment on above: Performed By: #### C BC ####[facility] Fzopnkawsn[address] [place], [place] [address]Dr. Shahbaz Rogel Monocytes/100 WBC (Bld) 2.5 % Normal 1.7-12.0 [facility] Comment on above: Performed By: #### C BC ####[facility] Avkbmvgjic5[address] [place], [place] [address]Dr. Shahbaz Rogel NEUT # 4.8 103/ul Normal 1.4-6.5 [facility] Comment on above: Performed By: #### C BC ####[facility] Ojpkxkxznu03[address] [place], [place] [address]Dr. Shahbaz Rogel Neutrophils/100 WBC (Bld) 86.1 % Critically high 43.0-75.0 [facility] Comment on above: Performed By: #### C BC ####[facility] Epalpfdzhf485[address] [place], [place] [address]DrChen Rogel Platelet mean volume (Bld) [Entitic vol] 10.0 fL Normal 9.5-13.5 [facility] Comment on above: Performed By: #### C BC ####[facility] Vynohxfqre9[address] [place], [place] [address]Dr. Shahbaz Rogel PLT 193 103/ul Normal 150-450 [facility] Comment on above: Performed By: #### C BC ####[facility] Evlptwzizp74[address] [place] [address]Dr. Shahbaz Rogel RBC 4.19 106/ul Critically low 4.20-5.40 [facility] Comment on above: Performed By: #### C BC ####[facility] Xozwhrbalo6979 [place] [address]Dr. Shahbaz Rogel WBC 5.6 103/ul Normal 4.0-11.0 [facility] Comment on above: Performed By: #### C BC ####[facility] Vtfddtbzyf3131 [place] [address]Dr. Shahbaz Rogel PROF CHEM 8 (BAS METB)on Anion gap [Moles/Vol] 12.7 mmol/L Normal [facility] Comment on above: Performed By: #### B MP ####[facility] Cvepfbyuwr17[address] [place], [place] [address]Dr. Shahbaz Rogel Calcium [Mass/Vol] 8.8 mg/dL Normal 8.5-10.1 [facility] Comment on above: Performed By: #### B MP ####[facility] Lhjepjnzok44[address] [place], [place] [address]Dr. Shahbaz Rogel Chloride [Moles/Vol] 107 mmol/L Normal 98-107 [facility] Comment on above: Performed By: #### B MP ####[facility] Dhycbyomnb40[address] [place], [place] [address]Dr. Shahbaz Rogel CO2 [Moles/Vol] 26.9 mmol/L Normal 21.0-32.0 [facility] Comment on above: Performed By: #### B MP ####[facility] Vtlgcvepcj[address] [place], [place] [address]Dr. Shahbaz Rogel Creatinine [Mass/Vol] 0.81 mg/dL Normal 0.55-1.02 [facility] Comment on above: Performed By: #### B MP ####[facility] Sinywelmjz7[address] [place], [place] [address]Dr. Shahbaz Rogel EGFR-AF PUERTO RICAN >60 Normal >=60 [facility] Comment on above: Performed By: #### B MP ####[facility] Tephxqbgqt3297 [place] [address]Dr. Shahbaz Juan F EGFR-NON AF PUERTO RICAN >60 Normal >=60 [facility] Comment on above: Performed By: #### B MP ####[facility] Arzuduhabd1897 [place] [id number]. Lilajarrod Juan F Glucose [Mass/Vol] 144 mg/dL Critically high 74-106 [facility] Comment on above: Performed By: #### B MP ####[facility] Ramjzgynvx6744 [place] [address]Dr. Shahbaz Rogel Potassium [Moles/Vol] 3.6 mmol/L Normal 3.5-5.1 [facility] Comment on above: Performed By: #### B MP ####[facility] Fsbizfdqqr[address] [place], [place] [address]Dr. Shahbaz Rogel Sodium [Moles/Vol] 143 mmol/L Normal 136-145 [facility] Comment on above: Performed By: #### B MP ####[facility] Cgajjbjttt27[address] [place], [place] [address]Dr. Shahbaz Juan F Urea nitrogen [Mass/Vol] 20.0 mg/dL Critically high 7.0-18.0 [facility] Comment on above: Performed By: #### B MP ####[facility] Tdekiaeqnl84[address] [place], [place] [address]Dr. Shahbaz Rogel Urea nitrogen/Creatinine [Mass ratio] 24.7 mg/mg Normal [facility] Comment on above: Performed By: #### B MP ####[facility] Hrsexysmro[address] [place] [address]Dr. Shahbaz Rogel CBC W MANUAL DIFFon 01-05-20 23 ATYPICAL LYMPH # Normal [facility] Comment on above: Performed By: #### C CAIN ####[facility] Desbwoejra[address] [place] [address]Dr. Shahbaz Rogel ATYPICAL LYMPH % Normal [facility] Comment on above: Performed By: #### C CAIN ####[facility] [facility] Cyvxkwmejm[address] [place] [id number]. Yilan Rogel BAND # 0.0 103/ul Normal 0.0-0.3 [facility] Comment on above: Performed By: #### C CAIN ####[facility] Rolwmyyysf[address] [place] [address]Dr. Yilan Rogel BAND % 0 % Normal 0-5 [facility] Comment on above: Performed By: #### C CAIN ####[facility] Djomqpkrry2872 [place] [address]Dr. Yilan Rogel BASOM # 0.00 103/ul Normal 0.00-0.10 [facility] Comment on above: Performed By: #### C CAIN ####[facility] Foszfvnwsq8[address] [place], [place] [address]Dr. Yilan Rogel BASOM % 0.0 % Critically low 0.2-2.0 [facility] Comment on above: Performed By: #### C CAIN ####[facility] Urkeejgrel166[address] [place], [place] [address]Dr. Yilan Rogel BLAST # Normal [facility] Comment on above: Performed By: #### C CAIN ####[facility] Qaybaihdbt8[address] [place], [place] [address]Dr. Yilan Rogel BLAST % Normal [facility] Comment on above: Performed By: #### C CAIN ####[facility] Dyzoopjuwo323[address] [place], [place] [address]Dr. Yilan Rogel CORRECTED WBC Normal 4.0-11.0 [facility] Comment on above: Performed By: #### C CAIN ####[facility] Dxqeposrol9198 [place] [address]Dr. Yilan Rogel EOS # 0.00 103/ul Normal 0.00-0.70 [facility] Comment on above: Performed By: #### C CAIN ####[facility] Pdrnlqetsu64[address] [place], [place] [address]Dr. Yilan Rogel EOS% 0.0 % Critically low 0.9-7.0 [facility] Comment on above: Performed By: #### C CAIN ####[facility] Xejncivhda0887 [place], [place] [address]Es. Shahbaz Rogel HCT 36.5 % Normal 36.0-48.0 [facility] Comment on above: Performed By: #### C CAIN ####[facility] Cwpxnshtxk7804 [place], [place] [address]Lv. Shahbaz Rogel HGB 11.8 g/dl Critically low 12.0-16.0 [facility] Comment on above: Performed By: #### C CAIN ####[facility] Oxtuweefon8249 [place], [place] [address]Zs. Shahbaz Rogel LYMPHM # 0.42 103/ul Critically low 1.20-3.80 [facility] Comment on above: Performed By: #### C CAIN ####[facility] Peonuyvdeu2957 [place] [phone]. Shahbaz Rogel LYMPHM% 12.0 % Critically low 20.5-60.0 [facility] Comment on above: Performed By: #### C CAIN ####[facility] Tmkumyzdoq0381 [place], [place] [address]Gx. Shahbaz Rogel MCH 28.0 pg Normal 26.7-34.0 [facility] Comment on above: Performed By: #### C CAIN ####[facility] Enhwjhnpsd5972 [place] [phone]. Shahbaz Rogel MCHC 32.3 g/dl Normal 29.9-35.2 [facility] Comment on above: Performed By: #### C CAIN ####[facility] Uqwwjtknlp1437 [place], [place] [address]Rk. Shahbaz Rogel MCV 86.7 fL Normal 81.0-99.0 [facility] Comment on above: Performed By: #### C CAIN ####[facility] Bjxucqbuva1443 [place] [phone]. Shahbaz Rogel METAMYELOCYTE # Normal [facility] Comment on above: Performed By: #### Cheri BARLOW ####[facility] Yvgmdobbdh4885 [place] [phone]. Shahbaz Rogel METAMYELOCYTE % Normal [facility] Comment on above: Performed By: #### C CAIN ####[facility] Rvbnoykysi3573 [place] [phone]. Shahbaz Rogel MONOM# 0.07 103/ul Critically low 0.30-0.80 [facility] Comment on above: Performed By: #### C CAIN ####[facility] Myegduqwce5707 [place] [address]Dr. Shahbaz Rogel MONOM% 2.0 % Normal 1.7-12.0 [facility] Comment on above: Performed By: #### C CAIN ####[facility] Pbswhahnvf1520 [place] [address]Dr. Shahbaz Rogel MPV 9.9 fL Normal 9.5-13.5 [facility] Comment on above: Performed By: #### C CAIN ####[facility] Dhcddftaxm47[address] [place], [place] [address]Dr. Shahbaz Rogel MYELOCYTE # Normal [facility] Comment on above: Performed By: #### C CAIN ####[facility] Lxjubwahab65[address] [place], [place] [address]Dr. Shahbaz Rogel MYELOCYTE % Normal [facility] Comment on above: Performed By: #### C CAIN ####[facility] Bzvpqlpzvr86[address] [place], [place] [address]Dr. Shahbaz Rogel NRBC Normal [facility] Comment on above: Performed By: #### C CAIN ####[facility] Rqtflemjvk7826 [place] [phone]. Shahbaz Rogel PLT 178 103/ul Normal 150-450 [facility] Comment on above: Performed By: #### C CAIN ####[facility] Qvaoqlnawk94[address] [place], [place] [address]Dr. Shahbaz Rogel RBC 4.21 106/ul Normal 4.20-5.40 [facility] Comment on above: Performed By: #### C CAIN ####[facility] Mfkxijveuz246[address] [place], [place] [address]Dr. Lilajarrod Juan F RDW 13.2 % Normal 11.0-15.0 [facility] Comment on above: Performed By: #### C BCMAN ####[facility] Kugcyizexc5243 [place] [address]Dr. Shahbaz Rogel SEG # 3.01 103/ul Normal 1.40-6.50 [facility] Comment on above: Performed By: #### C BCMAN ####[facility] Sbhphvnuir1268[address] [place], [place] [address]Dr. Shahbaz Rogel SEG % 86.0 % Critically high 43.0-75.0 [facility] Comment on above: Performed By: #### C BCMAN ####[facility] Ubahkmnang29[address] [place], [place] [address]Dr. Shahbaz Rogel WBC 3.5 103/ul Critically low 4.0-11.0 [facility] Comment on above: Performed By: #### C CAIN ####[facility] Zphffbhwav92[address] [place], [place] [address]DrChen Rogel PROF CHEM 8 (BAS METB)on Anion gap [Moles/Vol] 10.5 mmol/L Normal [facility] Comment on above: Performed By: #### B MP ####[facility] Pifbmcecaf494[address] [place], [place] [address]DrChen Rogel Calcium [Mass/Vol] 8.7 mg/dL Normal 8.5-10.1 [facility] Comment on above: Performed By: #### B MP ####[facility] Rtcihomlkm620[address] [place], [place] [address]DrChen Rogel Chloride [Moles/Vol] 108 mmol/L Critically high 98-107 [facility] Comment on above: Performed By: #### B MP ####[facility] Dxoemtznft[address] [place], [place] [address]DrChen Rogel CO2 [Moles/Vol] 25.2 mmol/L Normal 21.0-32.0 [facility] Comment on above: Performed By: #### B MP ####[facility] Tpohimpjfs82[address] [place], [place] [address]DrChen Rogel Creatinine [Mass/Vol] 0.77 mg/dL Normal 0.55-1.02 [facility] Comment on above: Performed By: #### B MP ####[facility] Cxntxaatla9984 [place] [phone]. Shahbaz Rogel EGFR-AF PUERTO RICAN >60 Normal >=60 [facility] Comment on above: Performed By: #### B MP ####[facility] Eldaahwdlw5139 [place] [phone]. Shahbaz Juan F EGFR-NON AF PUERTO RICAN >60 Normal >=60 [facility] Comment on above: Performed By: #### B MP ####[facility] Pomdpbhlqw2053 [place] [phone]. Shahbaz Rogel Glucose [Mass/Vol] 169 mg/dL Critically high 74-106 [facility] Comment on above: Performed By: #### B MP ####[facility] Yanlufgbxw6195 [place] [phone]. Shahbaz Rogel Potassium [Moles/Vol] 3.7 mmol/L Normal 3.5-5.1 [facility] Comment on above: Performed By: #### B MP ####[facility] Maftiuvjnz5977 [place] [phone]. Lilajarrod Juan F Sodium [Moles/Vol] 140 mmol/L Normal 136-145 [facility] Comment on above: Performed By: #### B MP ####[facility] Ghoqeigemi9091 [place] [phone]. Lilajarrod Juan F Urea nitrogen [Mass/Vol] 14.0 mg/dL Normal 7.0-18.0 [facility] Comment on above: Performed By: #### B MP ####[facility] Qpjjkefted2621 [place] [phone]. Shahbaz Rogel Urea nitrogen/Creatinine [Mass ratio] 18.2 mg/mg Normal [facility] Comment on above: Performed By: #### B MP ####[facility] Rexsrjfruy9053 [place] [phone]. Shahbaz Rogel RESPIRATORY PANEL PLUSon Adenovirus Not detected Normal NOT DETECTED [facility] Comment on above: Performed By: #### R SPLUS ####[facility] Xdvhwpmgwk5695 [place] [address]Dr. Shahbaz Rogel B. Parapertusis Not detected Normal NOT DETECTED [facility] Comment on above: Performed By: #### R SPLUS ####[facility] Cukjkbkdue706[address] [place], [place] [address]Dr. Yijarrod Rogel B. Pertussis Not detected Normal NOT DETECTED [facility] Comment on above: Performed By: #### R SPLUS ####[facility] Nkhfuvklws864[address] [place], [place] [address]Dr. Lilalan Rogel Chlamydia Pneumoniae Not detected Normal NOT DETECTED [facility] Comment on above: Performed By: #### R SPLUS ####[facility] Hrsbqrayuz160[address] [place], [place] [address]Dr. Yijarrod Rogel Coronavirus 229E Not detected Normal NOT DETECTED [facility] Comment on above: Performed By: #### R SPLUS ####[facility] Maibndbvcr7915[address] [place], [place] [address]Dr. Shahbaz Rogel Coronavirus HKU1 Not detected Normal NOT DETECTED [facility] Comment on above: Performed By: #### R SPLUS ####[facility] Kmpuxsmwak325[address] [place], [place] [address]Dr. Yilan Rogel Coronavirus NL63 Not detected Normal NOT DETECTED [facility] Comment on above: Performed By: #### R SPLUS ####[facility] Dxpzfqvanx327[address] [place], [place] [address]Dr. Yilan Rogel Coronavirus OC43 Not detected Normal NOT DETECTED [facility] Comment on above: Performed By: #### R SPLUS ####[facility] Vepmjabmtz359[address] [place], [place] [address]Dr. Yilan Rogel Influenza A H1 Not detected Normal NOT DETECTED [facility] Comment on above: Performed By: #### R SPLUS ####[facility] Fkqxfwjpqz9859[address] [place], [place] [address]Dr. Shahbaz Rogel Influenza A H1 2009 Not detected Normal NOT DETECTED [facility] Comment on above: Performed By: #### R SPLUS ####[facility] Urpiueiskh1678 [place] [address]Dr. Shahbaz Rogel Influenza A H3 Not detected Normal NOT DETECTED [facility] Comment on above: Performed By: #### R SPLUS ####[facility] Nyoiagwtey856[address] [place], [place] [address]Dr. Shahbaz Rogel Influenza B Not detected Normal NOT DETECTED [facility] Comment on above: Performed By: #### R SPLUS ####[facility] Kplggfpmby329[address] [place], [place] [address]Dr. Shahbaz Rogel Metapneumovirus Detected Abnormal NOT DETECTED [facility] Comment on above: Performed By: #### R SPLUS ####[facility] Kjbaypwhzl9210[address] [place], [place] [address]Dr. Shahbaz Rogel Mycoplas. Pneumoniae Not detected Normal NOT DETECTED [facility] Comment on above: Performed By: #### R SPLUS ####[facility] Zpapnkhnon07[address] [place], [place] [address]Dr. Shahbaz Rogel Parainfluenza 1 Not detected Normal NOT DETECTED [facility] Comment on above: Performed By: #### R SPLUS ####[facility] Bplyownxtb1888[address] [place], [place] [address]Dr. Shahbaz Rogel Parainfluenza 2 Not detected Normal NOT DETECTED [facility] Comment on above: Performed By: #### R SPLUS ####[facility] Xtywaoypmg555[address] [place], [place] [address]Dr. Shahbaz Rogel Parainfluenza 3 Not detected Normal NOT DETECTED [facility] Comment on above: Performed By: #### R SPLUS ####[facility] Fqsqpbivdn2633[address] [place], [place] [address]Dr. Shahbaz Rogel Parainfluenza 4 Not detected Normal NOT DETECTED [facility] Comment on above: Performed By: #### R SPLUS ####[facility] Kkbfmifakk199[address] [place], [place] [address]Dr. Yijarrod Rogel Rhino/Enterovirus Not detected Normal NOT DETECTED [facility] Comment on above: Performed By: #### R SPLUS ####[facility] Kdplfcwqey8606 [place] [address]Dr. Shahbaz Rogel RP2 Header 1 RESPIRATORY PANEL: VIRUSES Normal [facility] Comment on above: Performed By: #### R SPLUS ####[facility] Rvmxqfcmdc3798 [place] [address]Dr. Shahbaz Rogel RP2 Header 2 RESPIRATORY PANEL: BACTERIA Normal [facility] Comment on above: Performed By: #### R SPLUS ####[facility] Driehrhfdo1880[address] [place], [place] [address]Dr. Shahbaz Rogel RSV Not detected Normal NOT DETECTED [facility] Comment on above: Performed By: #### R SPLUS ####[facility] Lywlftoisq416[address] [place], [place] [address]Dr. Shahbaz Rogel SARS-CoV-2 (COVID-19) RNA PAVAN+probe Ql (Unsp spec) Not detected Normal NOT DETECTED [facility] Comment on above: Performed By: #### R SPLUS ####[facility] Iavpiimbqf446[address] [place], [place] [address]Dr. Shahbaz Rogel CARDIAC ROSALINA 3-6on 3 CK [Catalytic activity/Vol] 148 U/L Normal 26-192 [facility] Comment on above: Performed By: #### C MREP ####[facility] Wzdbcrumni136[address] [place], [place] [address]Dr. Shahbaz Rogel CK.MB [Mass/Vol] 0.84 ng/mL Normal <=3.60 [facility] Comment on above: Performed By: #### C MREP ####[facility] Nxcdhuqbts6[address] [place], [place] [address]Dr. Shahbaz Rogel HSTROP 6.4 pg/mL Normal 4.0-51.3 [facility] Comment on above: Result Comment: CUT- OFF POINTS HAVE BEEN ESTABLISHED BASED ON THE FOURTH UNIVERSAL DEFINITIONS OF MYOCARDIALINFARCTION. THE UPPER REFERENCE LIMIT (URL) OF TROPONIN, DEFINED THE 99TH PERCENTILE OFcTnI DISTRIBUTION IN A REFERENCE POPULATION, HAS BEEN CONFIRMED THE DECISION THRESHOLDFOR VT DIAGNOSIS. Performed By: #### C MREP ####[facility] Xxizwvodfm11[address] [place], [place] [address]Dr. Shahbaz Rogel CBC W MANUAL DIFFon 01-04-20 23 ATYPICAL LYMPH # Normal [facility] Comment on above: Performed By: #### C BCBRICE ####[facility] Biamfndkeq44[address] [place] [address]Dr. Shahbaz Rogel ATYPICAL LYMPH % Normal [facility] Comment on above: Performed By: #### C CAIN ####[facility] Gzpqllndpa8902 [place] [address]Dr. Shahbaz Rogel BAND # 0.0 103/ul Normal 0.0-0.3 [facility] Comment on above: Performed By: #### C CAIN ####[facility] Nkxiocisvd1936 [place] [address]Dr. Shahbaz Juan F BAND % 0 % Normal 0-5 [facility] Comment on above: Performed By: #### C CAIN ####[facility] Gpsllgazta7592 [place] [address]Dr. Shahbaz Rogel BASOM # 0.00 103/ul Normal 0.00-0.10 [facility] Comment on above: Performed By: #### C CAIN ####[facility] Tkengnlguh8751 [place] [address]Dr. Shahbaz Juan F BASOM % 0.0 % Critically low 0.2-2.0 [facility] Comment on above: Performed By: #### C CAIN ####[facility] Rivzjbgwfo2582 [place] [address]Dr. Lilajarrod Rogel BLAST # Normal [facility] Comment on above: Performed By: #### C CAIN ####[facility] Rvoxaoadji8336 [place] [address]Dr. Shahbaz Rogel BLAST % Normal [facility] Comment on above: Performed By: #### C CAIN ####[facility] Kyycwdfgnj6291 [place] [address]Dr. Shahbaz Rogel CORRECTED WBC Normal 4.0-11.0 [facility] Comment on above: Performed By: #### C CAIN ####[facility] Hivnqoueaq[address] [place], [place] [address]Dr. Shahbaz Rogel EOS # 0.02 103/ul Normal 0.00-0.70 [facility] Comment on above: Performed By: #### C CAIN ####[facility] Wqkeihibha1958 [place] [phone]. Shahbaz Rogel EOS% 1.0 % Normal 0.9-7.0 [facility] Comment on above: Performed By: #### C CAIN ####[facility] Yejtajryaz8643 [place] [phone]. Shahbaz Rogel HCT 37.5 % Normal 36.0-48.0 [facility] Comment on above: Performed By: #### C CAIN ####[facility] Rurmmimdrc2003 [place] [address]Dr. Shahbaz Rogel HGB 12.0 g/dl Normal 12.0-16.0 [facility] Comment on above: Performed By: #### C CAIN ####[facility] Pciewvezol[address] [place] [address]Dr. Shahbaz Rogel LYMPHM # 0.21 103/ul Critically low 1.20-3.80 [facility] Comment on above: Performed By: #### C CAIN ####[facility] Iavsehhxrp1996 [place] [address]Dr. Shahbaz Rogel LYMPHM% 13.0 % Critically low 20.5-60.0 [facility] Comment on above: Performed By: #### Cheri BARLOW ####[facility] Pjlxzwwktu1605 [place] [phone]. Shahbaz Rogel MCH 27.8 pg Normal 26.7-34.0 [facility] Comment on above: Performed By: #### C CAIN ####[facility] Tvhbcalmmf5549 [place] [phone]. Shahbaz Rogel MCHC 32.0 g/dl Normal 29.9-35.2 [facility] Comment on above: Performed By: #### C CAIN ####[facility] Zvqzpgztkg5591 [place] [phone]. Shahbaz Rogel MCV 86.8 fL Normal 81.0-99.0 [facility] Comment on above: Performed By: #### C CAIN ####[facility] Hmjanehrtz4796 [place] [phone]. Shahbaz Rogel METAMYELOCYTE # Normal [facility] Comment on above: Performed By: #### C CAIN ####[facility] Ltciexmouz7251 [place] [phone]. Shahbaz Rogel METAMYELOCYTE % Normal [facility] Comment on above: Performed By: #### C CAIN ####[facility] Mgkcrwkphs1454 [place] [phone]. Shahbaz Rogel MONOM# 0.02 103/ul Critically low 0.30-0.80 [facility] Comment on above: Performed By: #### C CAIN ####[facility] Kpziyqearv8168 [place] [address]Dr. Shahbaz Rogel MONOM% 1.0 % Critically low 1.7-12.0 [facility] Comment on above: Performed By: #### C CAIN ####[facility] Lcutbxuhpe025[address] [place], [place] [address]Dr. Shahbaz Juan F MPV 9.5 fL Normal 9.5-13.5 [facility] Comment on above: Performed By: #### C CAIN ####[facility] Etkyrwisrp7[address] [place], [place] [address]Dr. Shahbaz Rogel MYELOCYTE # Normal [facility] Comment on above: Performed By: #### C CAIN ####[facility] Diarqtiifd4287 [place] [phone]. Shahbaz Rogel MYELOCYTE % Normal [facility] Comment on above: Performed By: #### C CAIN ####[facility] Ajilpiefkz6941 [place] [address]Dr. Shahbaz Rogel NRBC Normal [facility] Comment on above: Performed By: #### C CAIN ####[facility] Zamcbyvgtz5811 [place] [phone]. Shahbaz Rogel PLT 173 103/ul Normal 150-450 [facility] Comment on above: Performed By: #### C CAIN ####[facility] Bsoukiakgw6317 [place], [place] [address]Yo. Shahbaz Rogel RBC 4.32 106/ul Normal 4.20-5.40 [facility] Comment on above: Performed By: #### C CAIN ####[facility] Fvpaiblnmf3931 [place] [phone]. Shahbaz Rogel RDW 13.1 % Normal 11.0-15.0 [facility] Comment on above: Performed By: #### C CAIN ####[facility] Zoapnytifu1581 [place] [address]Dr. Shahbaz Rogel SEG # 1.36 103/ul Critically low 1.40-6.50 [facility] Comment on above: Performed By: #### C CAIN ####[facility] Mjtyjnwxie6279 [place] [address]Dr. Shahbaz Rogel SEG % 85.0 % Critically high 43.0-75.0 [facility] Comment on above: Performed By: #### C CAIN ####[facility] Btassxxezg7759 [place] [phone]. Shahbaz Rogel WBC 1.6 103/ul Critically low 4.0-11.0 [facility] Comment on above: Performed By: #### C CAIN ####[facility] Bvziozjhvg5692 [place] [phone]. Shahbaz Rogel CT CHEST WO CONon 01-03-2023 CT CHEST WO CON Normal [facility] ER URINE PROFILEon 3 Bilirubin Ql (U) Negative Normal NEGATIVE [facility] Comment on above: Performed By: #### E RUR ####[facility] Ntaruluely8026 [place] [phone]. Shahbaz Rogel Clarity (U) CLEAR Normal CLEAR [facility] Comment on above: Performed By: #### E RUR ####[facility] Kkhiqlltmx1568 [place] [phone]. Shahbaz Rogel Color (U) LT. YELLOW Normal YELLOW [facility] Comment on above: Performed By: #### E RUR ####[facility] Kyawkdyedx6562 [place] [address]Dr. Shahbaz Juan F ERUAHD A micrscopic examina tion will be performed if indicated. Normal [facility] Comment on above: Performed By: #### E RUR ####[facility] Inawhjfvhr0667 [place] [address]Dr. Shahbaz Rogel Glucose Ql (U) Negative Normal NEGATIVE [facility] Comment on above: Performed By: #### E RUR ####[facility] Qjtipvhnnb5797 [place] [address]Dr. Shahbaz Rogel Hemoglobin Ql (U) Negative Normal NEGATIVE [facility] Comment on above: Performed By: #### E RUR ####[facility] Mgwvckqntr844[address] [place], [place] [address]Dr. Shahbaz Rogel Ketones Ql (U) Negative Normal NEGATIVE [facility] Comment on above: Performed By: #### E RUR ####[facility] Vmbrtimlui17[address] [place], [place] [address]Dr. Shahbaz Rogel LEUKOCYTES Negative Normal NEGATIVE [facility] Comment on above: Performed By: #### E RUR ####[facility] Jnjzoauktl2748[address] [place], [place] [address]Dr. Shahbaz Rogel Nitrite Ql (U) Negative Normal NEGATIVE [facility] Comment on above: Performed By: #### E RUR ####[facility] Iksfyqvvvb204[address] [place], [place] [address]Dr. Shahbaz Juan F pH (U) 6.0 [pH] Normal 5-9 [facility] Comment on above: Performed By: #### E RUR ####[facility] Zdxyeyqzsz8660 [place] [address]Dr. Shahbaz Rogel SPEC GRAVITY <=1.005 Abnormal 1.005-<=1. 025 [facility] Comment on above: Performed By: #### E RUR ####[facility] Drtxubzgwj1101[address] [place], [place] [address]Dr. Shahbaz Juan F UA PROTEIN Negative Normal NEGATIVE/ TRACE [facility] Comment on above: Performed By: #### E RUR ####[facility] Kgvhnklcpx2833 [place] [address]Dr. Shahbaz Rogel UR MICRO IND NOT INDICATED Normal [facility] Comment on above: Performed By: #### E RUR ####[facility] Troofqwokc212[address] [place], [place] [address]Dr. Shahbaz Rogel Urobilinogen Qn (U) 0.2 {Melida'U}/dL Normal 0.2 - 1. 0 [facility] Comment on above: Performed By: #### E RUR ####[facility] Srpxsieixc617[address] [place], [place] [address]Dr. Shahbaz Rogel LACTATE/LACTIC ACIDon 2022 Lactate [Moles/Vol] 1.5 mmol/L Normal 0.4-2.0 [facility] Comment on above: Performed By: #### L ACT ####[facility] Zcwzkvpjxi54[address] [place], [place] [address]Dr. Shahbaz Rogel PROF CHEM 8 (BAS METB)on Anion gap [Moles/Vol] 11.6 mmol/L Normal [facility] Comment on above: Performed By: #### B MP ####[facility] Kpwpkkyldt927[address] [place], [place] [address]Dr. Shahbaz Rogel Calcium [Mass/Vol] 8.1 mg/dL Critically low 8.5-10.1 [facility] Comment on above: Performed By: #### B MP ####[facility] Uftlyrnacy758[address] [place], [place] [address]Dr. Shahbaz Rogel Chloride [Moles/Vol] 109 mmol/L Critically high 98-107 [facility] Comment on above: Performed By: #### B MP ####[facility] Ualdblsgjm09[address] [place], [place] [address]Dr. Shahbaz Rogel CO2 [Moles/Vol] 25.2 mmol/L Normal 21.0-32.0 [facility] Comment on above: Performed By: #### B MP ####[facility] Tbdzqbzkjs38[address] [place], [place] [address]Dr. Shahbaz Rogel Creatinine [Mass/Vol] 0.89 mg/dL Normal 0.55-1.02 [facility] Comment on above: Performed By: #### B MP ####[facility] Chnkkvyvct9216 [place] [address]Dr. Lilajarrod Juan F EGFR-AF PUERTO RICAN >60 Normal >=60 [facility] Comment on above: Performed By: #### B MP ####[facility] Vkcpzjrmyb5672 [place] [address]Dr. Lilajarrod Juan F EGFR-NON AF PUERTO RICAN >60 Normal >=60 [facility] Comment on above: Performed By: #### B MP ####[facility] Edwjccwfow7911 [place] [address]Dr. Shahbaz Rogel Glucose [Mass/Vol] 167 mg/dL Critically high 74-106 [facility] Comment on above: Performed By: #### B MP ####[facility] Rdzdlakvwb4776 [place] [address]Dr. Shahbaz Rogel Potassium [Moles/Vol] 3.8 mmol/L Normal 3.5-5.1 [facility] Comment on above: Performed By: #### B MP ####[facility] Uqooakzvgv[address] [place] [address]Dr. Shahbaz Rogel Sodium [Moles/Vol] 142 mmol/L Normal 136-145 [facility] Comment on above: Performed By: #### B MP ####[facility] Zlyxpfpnmy94[address] [place] [address]Dr. Shahbaz Rogel Urea nitrogen [Mass/Vol] 9.0 mg/dL Normal 7.0-18.0 [facility] Comment on above: Performed By: #### B MP ####[facility] Ohetbdiauw[address] [place] [address]Dr. Shahbaz Rogel Urea nitrogen/Creatinine [Mass ratio] 10.1 mg/mg Normal [facility] Comment on above: Performed By: #### B MP ####[facility] Quvjqhjdqn0034 [place] [address]Dr. Shahbaz Rogel CARDIAC ROSALINA ADMITon 023 CK [Catalytic activity/Vol] 173 U/L Normal 26-192 [facility] Comment on above: Performed By: #### C EZEKIEL, BMP ####[facility] Tfdtpzslry7[address] [place] [id number]. Shahbaz Rogel CK.MB [Mass/Vol] 0.55 ng/mL Normal <=3.60 [facility] Comment on above: Performed By: #### Cheri FALCON BMP ####[facility] Xbohgpwtxg3135 [place] [address]Dr. Shahbaz Rogel HSTROP 5.9 pg/mL Normal 4.0-51.3 [facility] Comment on above: Result Comment: CUT- OFF POINTS HAVE BEEN ESTABLISHED BASED ON THE FOURTH UNIVERSAL DEFINITIONS OF MYOCARDIALINFARCTION. THE UPPER REFERENCE LIMIT (URL) OF TROPONIN, DEFINED THE 99TH PERCENTILE OFcTnI DISTRIBUTION IN A REFERENCE POPULATION, HAS BEEN CONFIRMED THE DECISION THRESHOLDFOR VT DIAGNOSIS. Performed By: #### Cheri FALCON BMP ####[facility] Hjrffuormv[address] [place] [address]Dr. Shahbaz Rogel LEN 76 ng/mL Normal 9-82 [facility] Comment on above: Performed By: #### Cheri FALCON BMP ####[facility] Ichwaxbfyg71[address] [place] [address]Dr. Shahbaz Rogel CBC W MANUAL DIFFon 01-03-20 23 ATYPICAL LYMPH # Normal [facility] Comment on above: Performed By: #### Cheri BARLOW ####[facility] Qudfsbjars44[address] [place] [address]Dr. Shahbaz Rogel ATYPICAL LYMPH % Normal [facility] Comment on above: Performed By: #### Cheri BARLOW ####[facility] Mfxsotrcmh5[address] [place] [address]Dr. Shahbaz Rogel BAND # Normal 0.0-0.3 [facility] Comment on above: Performed By: #### Cheri BARLOW ####[facility] Tlszfurjqh[address] [place] [address]Dr. Shahbaz Rogel BAND % Normal 0-5 [facility] Comment on above: Performed By: #### Cheri BARLOW ####[facility] Pnqbfkurjd7995 [place] [address]Dr. Shahbaz Rogel BASOM # 0.00 103/ul Normal 0.00-0.10 [facility] Comment on above: Performed By: #### C BCBRICE ####[facility] Oesyspzqrt3108 [place] [address]Dr. Shahbaz Rogel BASOM % 0.0 % Critically low 0.2-2.0 [facility] Comment on above: Performed By: #### C BCBRICE ####[facility] Cwiqumhehj2[address] [place] [address]Dr. Shahbaz Rogel BLAST # Normal [facility] Comment on above: Performed By: #### C BCBRICE ####[facility] Sceekzncnd[address] [place], [place] [address]Dr. Shahbaz Rogel BLAST % Normal [facility] Comment on above: Performed By: #### C CAIN ####[facility] Aobjjxyldg14[address] [place], [place] [address]Dr. Shahbaz Rogel CORRECTED WBC Normal 4.0-11.0 [facility] Comment on above: Performed By: #### C BCBRICE ####[facility] Qwlyhoxipm[address] [place], [place] [address]Dr. Shahbaz Rogel EOS # 0.03 103/ul Normal 0.00-0.70 [facility] Comment on above: Performed By: #### C CAIN ####[facility] Nojazwojsh[address] [place], [place] [address]Dr. Shahbaz Rogel EOS% 1.0 % Normal 0.9-7.0 [facility] Comment on above: Performed By: #### C BCBRICE ####[facility] Zqvhuzyxuw[address] [place], [place] [address]Dr. Shahbaz Rogel HCT 42.8 % Normal 36.0-48.0 [facility] Comment on above: Performed By: #### C BCBRICE ####[facility] Cjhhzerudi12[address] [place], [place] [address]Dr. Shahbaz Rogel HGB 14.1 g/dl Normal 12.0-16.0 [facility] Comment on above: Performed By: #### C CAIN ####[facility] Yrdeojchna7966 [place] [phone]. Shahbaz Rogel LYMPHM # 0.64 103/ul Critically low 1.20-3.80 [facility] Comment on above: Performed By: #### C CAIN ####[facility] Wmgzuylugw5570 [place] [address]Dr. Shahbaz Rogel LYMPHM% 23.0 % Normal 20.5-60.0 [facility] Comment on above: Performed By: #### C CAIN ####[facility] Rdjslmkvgd8365 [place] [address]Dr. Shahbaz Rogel MCH 28.0 pg Normal 26.7-34.0 [facility] Comment on above: Performed By: #### C CAIN ####[facility] Qxyibcjvwb64[address] [place], [place] [address]Dr. Shahbaz Rogel MCHC 32.9 g/dl Normal 29.9-35.2 [facility] Comment on above: Performed By: #### Cheri BARLOW ####[facility] Imoktdioef9[address] [place], [place] [address]Dr. Shahbaz Rogel MCV 84.9 fL Normal 81.0-99.0 [facility] Comment on above: Performed By: #### Cheri BARLOW ####[facility] Batgbebkmp8[address] [place], [place] [address]Dr. Shahbaz Rogel METAMYELOCYTE # Normal [facility] Comment on above: Performed By: #### Cheri BARLOW ####[facility] Ozhjshwktu28[address] [place] [address]Dr. Shahbaz Rogel METAMYELOCYTE % Normal [facility] Comment on above: Performed By: #### Cheri BARLOW ####[facility] Ozshmxsjrk1346 [place] [address]Dr. Shahbaz Rogel MONOM# 0.31 103/ul Normal 0.30-0.80 [facility] Comment on above: Performed By: #### C CAIN ####[facility] Tigtemxrpu1620 [place] [address]Dr. Shahbaz Rogel MONOM% 11.0 % Normal 1.7-12.0 [facility] Comment on above: Performed By: #### C CAIN ####[facility] Bxontnrvuw4933 [place] [phone]. Shahbaz Rogel MPV 9.5 fL Normal 9.5-13.5 [facility] Comment on above: Performed By: #### C ACIN ####[facility] Renoczukqh99[address] [place], [place] [address]Oc. Shahbaz Rogel MYELOCYTE # Normal [facility] Comment on above: Performed By: #### C CAIN ####[facility] Smyjxxbpqj3376 [place] [id number]. Shahbaz Rogel MYELOCYTE % Normal [facility] Comment on above: Performed By: #### C CAIN ####[facility] Ylsjqbnxlp2366 [place] [phone]. Shahbaz Rogel NRBC Normal [facility] Comment on above: Performed By: #### Cheri BARLOW ####[facility] Jldtmmpreo7238 [place] [phone]. Shahbaz Rogel PLT 197 103/ul Normal 150-450 [facility] Comment on above: Performed By: #### C CAIN ####[facility] Gmplxqyfkb90[address] [place], [place] [address]Dr. Shahbaz Rogel RBC 5.04 106/ul Normal 4.20-5.40 [facility] Comment on above: Performed By: #### C CAIN ####[facility] Tbfeemdycd5895 [place] [phone]. Shahbaz Rogel RDW 13.2 % Normal 11.0-15.0 [facility] Comment on above: Performed By: #### C CAIN ####[facility] Ssdqszhdmz3539 [place] [phone]. Shahbaz Rogel SEG # 1.82 103/ul Normal 1.40-6.50 [facility] Comment on above: Performed By: #### C CAIN ####[facility] Fbpszrikux7353 [place] [phone]. Shahbaz Rogel SEG % 65.0 % Normal 43.0-75.0 [facility] Comment on above: Performed By: #### C CAIN ####[facility] Uoiydsbwhu0768 [place], [place] [address]Ds. Shahbaz Rogel WBC 2.8 103/ul Critically low 4.0-11.0 [facility] Comment on above: Performed By: #### C CAIN ####[facility] Flurwfquvk3727 [place], [place] [address]Jh. Shahbaz Rogel Covid-19 PCR (CVDTB)on SARS-CoV-2 (COVID-19) RNA PAVAN+probe Ql (Unsp spec) Not detected Normal NOT DETECTED [facility] Comment on above: Result Comment: When [...] for this test is supported by the Grocery Worker of Health and Human Service's declaration that [...] no longer be used). Performed By: #### Cheri VDTB ####[facility] Hievbbidlc6164 [place] [phone]. Shahbaz Rogel D-DIMERon 01-02-2023 D-DIMER 0.38 mg/L FEU Normal <=0.59 [facility] Comment on above: Performed By: #### Andrea FOFANA ####[facility] Twmfvndfpq9966 [place] [phone]. Shahbaz Rogel D-DIMER COMMENTS SEE BELOW Normal [facility] Comment on above: Result Comment: Incr [...] generalized hospitalization. Performed By: #### D DIM ####[facility] Eiocyjfwpz[address] [place], [place] [address]Dr. Shahbaz Rogel LACTATE/LACTIC ACIDon 2022 Lactate [Moles/Vol] 2.1 mmol/L Critically high 0.4-2.0 [facility] Comment on above: Performed By: #### L ACT ####[facility] Rravjhuwoz[address] [place], [place] [address]Dr. Shahbaz Rogel PROF CHEM 8 (BAS METB)on Anion gap [Moles/Vol] 14.3 mmol/L Normal [facility] Comment on above: Performed By: #### Cheri FALCON, BMP ####[facility] Lylqpxnyxx[address] [place], [place] [address]Dr. Shahbaz Rogel Calcium [Mass/Vol] 9.0 mg/dL Normal 8.5-10.1 [facility] Comment on above: Performed By: #### Cheri FALCON, BMP ####[facility] Khcqzokdhr33[address] [place], [place] [address]Dr. Shahbaz Rogel Chloride [Moles/Vol] 102 mmol/L Normal 98-107 [facility] Comment on above: Performed By: #### Cheri FALCON, BMP ####[facility] Uvyiojogaq42[address] [place], [place] [address]Dr. Shahbaz Rogel CO2 [Moles/Vol] 25.5 mmol/L Normal 21.0-32.0 [facility] Comment on above: Performed By: #### Cheri FALCON, BMP ####[facility] Jhrekbajjr[address] [place], [place] [address]Dr. Shahbaz Rogel Creatinine [Mass/Vol] 1.01 mg/dL Normal 0.55-1.02 [facility] Comment on above: Performed By: #### Cheri FALCON, BMP ####[facility] Qvphgsafiv9779 [place] [phone]. Shahbaz Rogel EGFR-AF PUERTO RICAN >60 Normal >=60 [facility] Comment on above: Performed By: #### C EZEKIEL, BMP ####[facility] Pewujstmxs8430 [place] [phone]. Shahbaz Rogel EGFR-NON AF PUERTO RICAN 56 mL/min/1.73m2 Critically low >=60 [facility] Comment on above: Performed By: #### C EZEKIEL, BMP ####[facility] Iukngffoun7123 [place] [phone]. Shahbaz Rogel Glucose [Mass/Vol] 105 mg/dL Normal 74-106 [facility] Comment on above: Performed By: #### C EZEKIEL, BMP ####[facility] Wjpzdfqfim6855 [place] [phone]. Shahbaz Rogel Potassium [Moles/Vol] 3.8 mmol/L Normal 3.5-5.1 [facility] Comment on above: Performed By: #### C EZEKIEL, BMP ####[facility] Gogelqnbus4417 [place] [address]Dr. Shahbaz Rogel Sodium [Moles/Vol] 138 mmol/L Normal 136-145 [facility] Comment on above: Performed By: #### C EZEKIEL, BMP ####[facility] Biziisqlxt4537 [place] [address]Dr. Shahbaz Rogel Urea nitrogen [Mass/Vol] 9.0 mg/dL Normal 7.0-18.0 [facility] Comment on above: Performed By: #### Cheri FALCON, BMP ####[facility] Fqdfjrsoqp2300 [place] [phone]. Shahbaz Rogel Urea nitrogen/Creatinine [Mass ratio] 8.9 mg/mg Normal [facility] Comment on above: Performed By: #### C EZEKIEL, BMP ####[facility] Fjnmfmpgoy2622 [place] [address]Dr. Shahbaz Rogel XR CHEST 1 Von 01-02-2023 XR CHEST 1 V Normal [facility] INSULINon 11-02-2022 Insulin 6.0 uIU/mL Normal 2.6-24.9 [facility] Comment on above: Performed By: #### I NSULIN ####[facility] Wzlrujuotp[address] [place], [place] [address]Dr. Shahbaz Rogel CBC AUTO DIFFon 11-01-2022 BASO # 0.0 103/ul Normal 0.0-0.1 [facility] Comment on above: Performed By: #### C BC ####[facility] Nwvvlojles74[address] [place], [place] [address]Dr. Lilajarrod Rogel Basophils/100 WBC (Bld) 0.5 % Normal 0.2-2.0 [facility] Comment on above: Performed By: #### C BC ####[facility] Kcppoprrhs40[address] [place], [place] [address]Dr. Lilajarrod Juan F EO # 0.2 103/ul Normal 0.0-0.7 [facility] Comment on above: Performed By: #### C BC ####[facility] Ceqrfnbbbi340[address] [place], [place] [address]Dr. Lilajarrod Rogel Eosinophils/100 WBC (Bld) 5.2 % Normal 0.9-7.0 [facility] Comment on above: Performed By: #### C BC ####[facility] Dyjvgkhaqh[address] [place], [place] [address]Dr. Shahbaz Rogel Erythrocyte distribution width (RBC) [Ratio] 12.7 % Normal 11.0-15.0 [facility] Comment on above: Performed By: #### C BC ####[facility] Khxoahlblf265[address] [place], [place] [address]Dr. Shahbaz Rogle Hematocrit (Bld) [Volume fraction] 46.4 % Normal 36.0-48.0 [facility] Comment on above: Performed By: #### C BC ####[facility] Hkxjapimzp43[address] [place], [place] [address]Dr. Lilajarrod Rogel Hemoglobin (Bld) [Mass/Vol] 14.9 g/dL Normal 12.0-16.0 [facility] Comment on above: Performed By: #### C BC ####[facility] Fkhttqytds4050 [place] [address]Dr. Shahbaz Rogel IG # 0.00 10e3/ul Normal 0.00-0.03 [facility] Comment on above: Performed By: #### C BC ####[facility] Buzfegfsee5514 [place] [address]DrChen Shahbaz Juan F IG % 0.0 % Normal 0.0-0.5 [facility] Comment on above: Performed By: #### C BC ####[facility] Dnuqyffviv50[address] [place], [place] [address]DrChen Lilajarrod Rogel LYMPH # 1.1 103/ul Critically low 1.2-3.8 [facility] Comment on above: Performed By: #### C BC ####[facility] Akncomhrye86[address] [place], [place] [address]DrChen Lilajarrod Rogel Lymphocytes/100 WBC (Bld) 25.5 % Normal 20.5-60.0 [facility] Comment on above: Performed By: #### C BC ####[facility] Ypqgsywafj8[address] [place], [place] [address]DrChen Lilajarrod Rogel MANUAL DIFF REQ NO Normal [facility] Comment on above: Performed By: #### C BC ####[facility] Ezurmxevkq5[address] [place], [place] [address]DrChen Shahbaz Juan F MCH (RBC) [Entitic mass] 27.8 pg Normal 26.7-34.0 [facility] Comment on above: Performed By: #### C BC ####[facility] Srvvhjmyof79[address] [place], [place] [address]DrChen Shahbaz Juan F MCHC (RBC) [Mass/Vol] 32.1 g/dL Normal 29.9-35.2 [facility] Comment on above: Performed By: #### C BC ####[facility] Qzqqcajogy[address] [place], [place] [address]DrChen Shahbaz Juan F MCV (RBC) [Entitic vol] 86.6 fL Normal 81.0-99.0 [facility] Comment on above: Performed By: #### C BC ####[facility] Ociwztrdwd[address] [place], [place] [address]Dr. Shahbaz Rogel MONO # 0.2 103/ul Critically low 0.3-0.8 [facility] Comment on above: Performed By: #### C BC ####[facility] Frzyfpisiy3714 [place] [address]Dr. Shahbaz Rogel Monocytes/100 WBC (Bld) 5.4 % Normal 1.7-12.0 [facility] Comment on above: Performed By: #### C BC ####[facility] Bpwrlpiodh6938 [place] [address]Dr. Shahbaz Rogel NEUT # 2.7 103/ul Normal 1.4-6.5 [facility] Comment on above: Performed By: #### C BC ####[facility] Nquesmkvul[address] [place], [place] [address]Dr. Shahbaz Rogel Neutrophils/100 WBC (Bld) 63.4 % Normal 43.0-75.0 [facility] Comment on above: Performed By: #### C BC ####[facility] Wcydplmoee45[address] [place], [place] [address]Dr. Shahbaz Rogel Platelet mean volume (Bld) [Entitic vol] 9.4 fL Critically low 9.5-13.5 [facility] Comment on above: Performed By: #### C BC ####[facility] Kuftdaliup1189 [place] [address]Dr. Shahbaz Rogel PLT 216 103/ul Normal 150-450 [facility] Comment on above: Performed By: #### C BC ####[facility] Wjotlvfmch[address] [place], [place] [address]Dr. Shahbaz Rogel RBC 5.36 106/ul Normal 4.20-5.40 [facility] Comment on above: Performed By: #### C BC ####[facility] Huakfjmcwy[address] [place], [place] [address]Dr. Shahbaz Rogel WBC 4.2 103/ul Normal 4.0-11.0 [facility] Comment on above: Performed By: #### C BC ####[facility] Zylogugygb[address] [place], [place] [address]Dr. Shahbaz Rogel FREE THYROXINE INDEX T7on FTI 2.92 Normal 1.30-4.50 [facility] Comment on above: Performed By: #### C MP, LIPID, T7, TSH ####[facility] Bdyxifspro0864 [place] [address]Dr. Shahbaz Rogel T3U 37.0 % Normal 30.0-39.0 [facility] Comment on above: Performed By: #### C MP, LIPID, T7, TSH ####[facility] Kpoygmjiwv8930 [place] [address]Dr. Shhabaz Rogel T4 [Mass/Vol] 7.90 ug/dL Normal 4.80-13.90 [facility] Comment on above: Performed By: #### C MP, LIPID, T7, TSH ####[facility] Pwrzxcrukb7070 [place] [address]Dr. Shahbaz Rogel GLYCOHEMOGLOBIN A1Con 2022 ADA RECOMMENDATION SEE BELOW Normal [facility] Comment on above: Result Comment: ADA RECOMMENDED LIMIT 4.0 - 6.0 ADA THERAPEUTIC TARGET < 7.0 ACTION SUGGESTED > 7.0 Performed By: #### A 1C ####[facility] Arecfupayi7571 [place] [address]Dr. Shahbaz Rogel Glucose [Mass/Vol] 120 mg/dL Normal [facility] Comment on above: Performed By: #### A 1C ####[facility] Vcxsxpvyov7997 [place] [address]Dr. Shahbaz Rogel HbA1c (Bld) [Mass fraction] 5.8 % Normal 4.5-6.2 [facility] Comment on above: Performed By: #### A 1C ####[facility] Sdoswvenqu8212 [place] [address]Dr. Shahbaz Rogel IRONon 11-01-2022 Iron [Mass/Vol] 54.0 ug/dL Normal 50.0-170.0 [facility] Comment on above: Performed By: #### I GRIS ####[facility] Vwpjfjxzbl[address] [place], [place] [address]Dr. Shahbaz Rogel LIPID PROFILEon 11-01-2022 CHOL-HDL RATIO NORM SEE BELOW Normal [facility] Comment on above: Result Comment: 3.3 - 4.4 LOW RISK 4.4 - 7.1 AVERAGE RISK 7.1 - 11.0 MODERATE RISK >11.0 HIGH RISK Performed By: #### C MP, LIPID, T7, TSH ####[facility] Ltpzwkkulz9485 [place] [phone]. Shahbaz Rogel Cholesterol [Mass/Vol] 203 mg/dL Critically high <=200 [facility] Comment on above: Performed By: #### C MP, LIPID, T7, TSH ####[facility] Gpagornajl2857 [place] [phone]. Shahbaz Rogel Cholesterol in HDL [Mass/Vol] 42 mg/dL Normal 40-60 [facility] Comment on above: Performed By: #### C MP, LIPID, T7, TSH ####[facility] Tyqjvdfmve8336 [place] [phone]. Shahbaz Rogel Cholesterol in LDL [Mass/Vol] 121.4 mg/dL Normal [facility] Comment on above: Performed By: #### C MP, LIPID, T7, TSH ####[facility] Zvrkefxlrw7351 [place] [phone]. Shahbaz Rogel Cholesterol.total/Chol esterol in HDL [Mass ratio] 4.8 {ratio} Normal [facility] Comment on above: Performed By: #### C MP, LIPID, T7, TSH ####[facility] Xaxfsqxlga4806 [place] [phone]. Shahbaz Rogel HDL NORMAL > or = 60 mg/dl - LO W CARDIOVASCULAR RISK <40 mg/dl - HIGH CARDIOVASCULAR RISK Normal [facility] Comment on above: Performed By: #### C MP, LIPID, T7, TSH ####[facility] Wakgfglfrc0233 [place] [phone]. Shahbaz Rogel LDL CALC NORMAL SEE BELOW Normal [facility] Comment on above: Result Comment: <100 mg/dl OPTIMAL 100 - 129 mg/dl NEAR OR ABOVE OPTIMAL 130 - 159 mg/dl BORDERLINE HIGH 160 - 189 mg/dl HIGH >190 mg/dl VERY HIGH Performed By: #### C MP, LIPID, T7, TSH ####[facility] Adydbaztee6[address] [place] [address]Dr. Shahbaz Rogel Triglyceride [Mass/Vol] 198 mg/dL Critically high <=150 [facility] Comment on above: Performed By: #### C MP, LIPID, T7, TSH ####[facility] Rnxilclsgh0567 [place] [address]Dr. Shahbaz Rogel VLDL CALC 39.6 mg/dL Normal [facility] Comment on above: Performed By: #### C MP, LIPID, T7, TSH ####[facility] Jecrfinyvx9897 [place] [address]Dr. Shahbaz Rogel PROF 14(COMP METB)on 023 Albumin [Mass/Vol] 4.1 g/dL Normal 3.4-5.0 [facility] Comment on above: Performed By: #### C MP, LIPID, T7, TSH ####[facility] Iklrmlosge5266 [place] [address]Dr. Shahbaz Rogel Albumin/Globulin [Mass ratio] 1.0 {ratio} Normal [facility] Comment on above: Performed By: #### C MP, LIPID, T7, TSH ####[facility] Jslpejhhab3961 [place] [address]Dr. Shahbaz Rogel ALP [Catalytic activity/Vol] 126 U/L Critically high 46-116 [facility] Comment on above: Performed By: #### C MP, LIPID, T7, TSH ####[facility] Ekzzlshevl8946 [place] [address]Dr. Shahbaz Rogel ALT [Catalytic activity/Vol] 30 U/L Normal 14-59 [facility] Comment on above: Performed By: #### C MP, LIPID, T7, TSH ####[facility] Qcsekjovnf5359 [place] [address]Dr. Shahbaz Rogel Anion gap [Moles/Vol] 12.3 mmol/L Normal [facility] Comment on above: Performed By: #### C MP, LIPID, T7, TSH ####[facility] Fbjwgqbhdz4066 [place] [address]Dr. Shahbaz Rogel AST [Catalytic activity/Vol] 25 U/L Normal 15-37 [facility] Comment on above: Performed By: #### C MP, LIPID, T7, TSH ####[facility] Rhwyghzlxx1733 [place] [address]Dr. Shahbaz Rogel Bilirubin [Mass/Vol] 0.5 mg/dL Normal 0.2-1.0 [facility] Comment on above: Performed By: #### C MP, LIPID, T7, TSH ####[facility] Kjgrvblfer75[address] [place], [place] [address]Dr. Shahbaz Rogel Calcium [Mass/Vol] 9.4 mg/dL Normal 8.5-10.1 [facility] Comment on above: Performed By: #### C MP, LIPID, T7, TSH ####[facility] Wxtqjjutgw9[address] [place], [place] [address]Dr. Shahbaz Rogel Chloride [Moles/Vol] 104 mmol/L Normal 98-107 [facility] Comment on above: Performed By: #### C MP, LIPID, T7, TSH ####[facility] Ndyzblkmli7817 [place] [address]Dr. Shahbaz Rogel CO2 [Moles/Vol] 29.6 mmol/L Normal 21.0-32.0 [facility] Comment on above: Performed By: #### C MP, LIPID, T7, TSH ####[facility] Hysmxmzoub4329 [place] [address]Dr. Shahbaz Rogel Creatinine [Mass/Vol] 0.91 mg/dL Normal 0.55-1.02 [facility] Comment on above: Performed By: #### C MP, LIPID, T7, TSH ####[facility] Qtnlzohrfr5147 [place] [address]Dr. Yilan Rogel EGFR-AF PUERTO RICAN >60 Normal >=60 [facility] Comment on above: Performed By: #### C MP, LIPID, T7, TSH ####[facility] Vcpmkknhbw7185 [place] [address]Dr. Shahbaz Rogel EGFR-NON AF PUERTO RICAN >60 Normal >=60 [facility] Comment on above: Performed By: #### C MP, LIPID, T7, TSH ####[facility] Pqjpimxioh5411 [place] [address]Dr. Shahbaz Rogel Globulin (S) [Mass/Vol] 4.0 g/dL Normal [facility] Comment on above: Performed By: #### C MP, LIPID, T7, TSH ####[facility] Oquoiaznog3090 [place] [address]Dr. Shahbaz Rogel Glucose [Mass/Vol] 85 mg/dL Normal 74-106 [facility] Comment on above: Performed By: #### C MP, LIPID, T7, TSH ####[facility] Giwfjnztum8920 [place] [address]Dr. Shahbaz Rogel Potassium [Moles/Vol] 3.9 mmol/L Normal 3.5-5.1 [facility] Comment on above: Performed By: #### C MP, LIPID, T7, TSH ####[facility] Mbjculvulm[address] [place], [place] [address]Dr. Shahbaz Rogel Protein [Mass/Vol] 8.1 g/dL Normal 6.4-8.2 [facility] Comment on above: Performed By: #### C MP, LIPID, T7, TSH ####[facility] Wmgsdbeddr01[address] [place], [place] [address]Dr. Shahbaz Rogel Sodium [Moles/Vol] 142 mmol/L Normal 136-145 [facility] Comment on above: Performed By: #### C MP, LIPID, T7, TSH ####[facility] Knsvnsvpmg[address] [place], [place] [address]Dr. Shahbaz Rogel Urea nitrogen [Mass/Vol] 9.0 mg/dL Normal 7.0-18.0 [facility] Comment on above: Performed By: #### C MP, LIPID, T7, TSH ####[facility] Mzbyyrjohe164[address] [place], [place] [address]Dr. Shahbaz Rogel Urea nitrogen/Creatinine [Mass ratio] 9.9 mg/mg Normal [facility] Comment on above: Performed By: #### C MP, LIPID, T7, TSH ####[facility] [address]tfxveflxs[address] [place] [id number]. Shahbaz Rogel TSHon 11-01-2022 TSH 0.045 uIU/mL Critically low 0.358-3.74 0 [facility] Comment on above: Performed By: #### C MP, LIPID, T7, TSH ####[facility] [address] [place], [place] [address]Be. Shahbaz Rogel XR HUMERUS LT MIN 2Von 10-01 XR HUMERUS LT MIN 2V Normal [facility] XR LSPINE 2_3 VIEWSon 2021 XR LSPINE 2_3 VIEWS Normal [facility] XR CHEST 1 Von 08-25-2022 XR CHEST 1 V Normal [facility] ACID FAST SMEAR AND CXon Acid Fast Culture Negative Normal [facility] Comment on above: Result Comment: No a ninfa fast bacilli isolated after 6 weeks. Performed By: #### A FB ####[facility] [address] [place] [address]Dr. Shahbaz Rogel Acid Fast Smear Negative Normal [facility] Comment on above: Performed By: #### A FB ####[facility] [address] [place] [id number]. Shahbaz Rogel AF[employer] Specimen Processing Concentration Normal [facility] Comment on above: Performed By: #### A FB ####[facility] [address] [place] [address]Dr. Shahbaz Rogel Bacteria identified Anaer cx Nom (Unsp spec)Ordered By: Rodolfo Harley on 08-13-2022 Anaerobic microbial culture No Anaerobes Isolated 3 Days [facility] Basophils Auto (Bld) [#/Vol] Ordered By: Rodolfo Harley on 08-12-2022 Basophils (Bld) [#/Vol] 0.0 10*3/uL 0.0-0.2 [facility] Basophils/100 WBC Auto (Bld) Ordered By: Rodolfo Harley on 08-12-2022 Basophils/100 WBC (Bld) 0.4 % . [facility] Creatinine and Glomerular fi ltration rate.predicted panel (S/P/Bld)Ordered By: Rodolfo Harley on 08-12-2022 Creatinine [Mass/Vol] 0.74 mg/dL 0.44-1.03 [facility] Eosinophils Auto (Bld) [#/Vo l]Ordered By: Rodolfo Harley on 08-12-2022 Eosinophils (Bld) [#/Vol] 0.0 10*3/uL 0.0-0.45 [facility] Eosinophils/100 WBC Auto (Bl d)Ordered By: Rodolfo Harley on 08-12-2022 Eosinophils/100 WBC (Bld) 0.0 % . [facility] Erythrocyte distribution wid th Auto (RBC) [Ratio]Ordered By: Rodolfo Harley on 08-12-2022 Erythrocyte distribution width (RBC) [Ratio] 14.2 % 11.9-15.3 [facility] Estimated glomerular filtrat ion rate (GFR) non- AmericanOrdered By: Rodolfo Harley on 08-12-2022 GFR/1.73 sq M.predicted among non-blacks MDRD (S/P/Bld) [Vol rate/Area] > 60 mL/Min [facility] Hematocrit Auto (Bld) [Volum e fraction]Ordered By: Rodolfo Harley on 08-12-2022 Hematocrit (Bld) [Volume fraction] 38.0 % 34.0-46.4 [facility] Hemoglobin [Mass/volume] in BloodOrdered By: Rodolfo Harley on 08-12-2022 Hemoglobin (Bld) [Mass/Vol] 12.5 g/dL 11.8-15.4 [facility] Laboratory - Hematology and Cell countsOrdered By: Rodolfo Harley on 08-12-2022 Nucleated RBC/100 WBC (Bld) [Ratio] 0.1 % 0-0.5 [facility] Leukocytes [#/volume] in Blo od by Automated countOrdered By: Rodolfo Harley on 08-12-2022 WBC (Bld) [#/Vol] 5.8 10*3/uL 4.5-11.0 [facility] Lymphocytes Auto (Bld) [#/Vo l]Ordered By: Rodolfo Harley on 08-12-2022 Lymphocytes (Bld) [#/Vol] 0.7 10*3/uL 1.00-4.8 [facility] Lymphocytes/100 WBC Auto (Bl d)Ordered By: Rodolfo Harley on 08-12-2022 Lymphocytes/100 WBC (Bld) 11.4 % . [facility] MCH Auto (RBC) [Entitic mass ]Ordered By: Rodolfo Harley on 08-12-2022 MCH (RBC) [Entitic mass] 28.1 pg 24.7-34.3 [facility] MCHC Auto (RBC) [Mass/Vol]Or dered By: Rodolfo Harley on 08-12-2022 MCHC (RBC) [Mass/Vol] 32.9 g/dL 32.0-35.0 [facility] MCV Auto (RBC) [Entitic vol] Ordered By: Rodolfo Harley on 08-12-2022 MCV (RBC) [Entitic vol] 85.4 fL 80-100 [facility] Monocytes Auto (Bld) [#/Vol] Ordered By: Rodolfo Harley on 08-12-2022 Monocytes (Bld) [#/Vol] 0.3 10*3/uL 0.0-0.8 [facility] Monocytes/100 WBC Auto (Bld) Ordered By: Rodolfo Harley on 08-12-2022 Monocytes/100 WBC (Bld) 4.8 % . [facility] Neutrophils Auto (Bld) [#/Vo l]Ordered By: Rodolfo Harley on 08-12-2022 Neutrophils (Bld) [#/Vol] 4.8 10*3/uL 1.8-7.7 [facility] Neutrophils/100 WBC Auto (Bl d)Ordered By: Rodolfo Harley on 08-12-2022 Neutrophils/100 WBC (Bld) 83.4 % . [facility] No Panel InformationOrdered By: Rodolfo Harley on 08-12-2022 Estimated GFR () > 60 mL/Min [facility] Comment on above: GFR estimated refere nce range: According to KDOQI guidelines, <60 ml/min/1.73m2 is sufficient to diagnose a patient with chronic kidney disease. Pharmacy Creatinine Clearance (Chem 59.45 [facility] Platelet mean volume Auto (B ld) [Entitic vol]Ordered By: Rodolfo Harley on 08-12-2022 Platelet mean volume (Bld) [Entitic vol] 7.9 fL 6.3-10.7 [facility] Platelets Auto (Bld) [#/Vol] Ordered By: Rodolfo Harley on 08-12-2022 Platelets (Bld) [#/Vol] 196 10*3/uL 150-450 [facility] RBC Auto (Bld) [#/Vol]Ordere d By: Rodolfo Harley on 08-12-2022 RBC (Bld) [#/Vol] 4.45 10*6/uL 3.60-5.00 [facility] Serum or plasma anion gap de terminationOrdered By: Rodolfo Harley on 08-12-2022 Anion gap [Moles/Vol] 7.5 mmol/L 6.0-15.0 [facility] Serum or plasma calcium dagoberto urement (mass/volume)Ordered By: Rodolfo Harley on 08-12-2022 Calcium [Mass/Vol] 8.7 mg/dL 8.2-10.2 [facility] Serum or plasma chloride anahy surement (moles/volume)Ordered By: Rodolfo Harley on 08-12-2022 Chloride [Moles/Vol] 108 mmol/L 95-114 [facility] Serum or plasma glucose dagoberto urement (mass/volume)Ordered By: Rodolfo Harley on 08-12-2022 Glucose [Mass/Vol] 133 mg/dL 70-100 [facility] Comment on above: ADA recommended refe rence rangeRandom Glucose Reference Range is dependent on time and content of last meal. Glucose of more than 200 mg/dL in a nonstressed, ambulatory subject supports the diagnosis of Diabetes Mellitus. Serum or plasma potassium me asurement (moles/volume)Ordered By: Rodolfo Harley on 08-12-2022 Potassium [Moles/Vol] 3.7 mmol/L 3.5-5.1 [facility] Serum or plasma sodium measu rement (moles/volume)Ordered By: Rodolfo Harley on 08-12-2022 Sodium [Moles/Vol] 139 mmol/L 136-146 [facility] Serum or plasma total carbon dioxide measurement (moles/volume)Ordered By: Rodolfo Harley on 08-12-2022 CO2 [Moles/Vol] 27.2 mmol/L 22.0-30.0 [facility] Serum or plasma urea nitroge n measurement (mass/volume)Ordered By: Rodolfo Harley on 08-12-2022 Urea nitrogen [Mass/Vol] 14 mg/dL 9-23 [facility] ABO and Rh group post transf usion reaction Nom (Bld)Ordered By: Rodolfo Harley on 08-10-2022 Microscopic observation Gram stain Nom (Unsp spec) [facility] AFB cultureOrdered By: Sissy Harley on 08-10-2022 Mycobacterium sp identified Org specific cx Nom (Unsp spec) [facility] AFB smearOrdered By: Rodolfo Harley on 08-10-2022 Microscopic observation Smear Nom (Unsp spec) [facility] Aerobic cultureOrdered By: Margie Harley on 08-10-2022 Bacteria identified Aer cx Nom (Unsp spec) No Growth 2 Days [facility] Anaerobic cultureOrdered By: Rodolfo Harley on 08-10-2022 Bacteria identified Anaer cx Nom (Unsp spec) No Anaerobes Isolated 3 Days [facility] Arterial blood standard base excess determination by calculationOrdered By: Rodolfo Harley on 08-10-2022 Base excess standard Calc (BldA) [Moles/Vol] 5 mmol/L -2-3 [facility] Blood carbon dioxide, total measurement by calculation (moles/volume)Ordered By: Rodolfo Harley on 08-10-2022 CO2 Calc (Bld) [Moles/Vol] 30 mmol/L 23-[address] [facility] [address] biopsyOrdered By: Rodolfo Harley on 08-10-2022 Hematocrit (Bld) [Volume fraction] 40.0 % 38.0-51.0 [facility] Fungal cultureOrdered By: Rolanda Harley on 08-10-2022 Fungus identified Cx Nom (Unsp spec) [facility] Glucose Glucometer (BldC) [M ass/Vol]Ordered By: Rodolfo Harley on 08-10-2022 Glucose [Mass/Vol] 126 mg/dL 70-105 [facility] Gram stain for investigation of transfusion reactionOrdered By: Rodolfo Harley on 08-10-2022 Microscopic observation Gram stain Nom (Unsp spec) [facility] Hemoglobin Calc (Bld) [Mass/ Vol]Ordered By: Rodolfo Harley on 08-10-2022 Hemoglobin (Bld) [Mass/Vol] 13.6 g/dL 12.0-17.0 [facility] Monocyte %Ordered By: Jean Harley on 08-10-2022 Monocyte % 39.9 mm[Hg] 35-51 [facility] Monocyte % 45 mm[Hg] 80-105 [facility] No Panel InformationOrdered By: Rodolfo Harley on 08-10-2022 Chlamydia psittaci Antibodies <1:10 Neg:<1:10 [facility] Comment on above: This test was develo ped and its performance characteristicsdetermined by [employer]. It has not been cleared or approvedby the Food and Drug Administration. The FDA hasdetermined that such clearance or approval is notnecessary.Performed at: [address] [id number] Director: Shelly Vargas MD, Phone: [phone] Potassium (Bld) [Moles/Vol]O rdered By: Rodolfo Harley on 08-10-2022 Potassium [Moles/Vol] 3.8 mmol/L 3.5-4.9 [facility] Sodium (Bld) [Moles/Vol]Orde red By: Rodolfo Harley on 08-10-2022 Sodium [Moles/Vol] 141 mmol/L 138-146 [facility] Whole blood bicarbonate dagoberto urementOrdered By: Rodolfo Harley on 08-10-2022 HCO3 (Bld) [Moles/Vol] 29.1 mmol/L 22.0-28.0 [facility] Whole blood ionized calcium measurement (moles/volume)Ordered By: Rodolfo Harley on 08-10-2022 Calcium.ionized (Bld) [Moles/Vol] 1280 mmol/L 1.12-1.32 [facility] Whole blood oxygen saturatio n measurementOrdered By: Rodolfo Harley on 08-10-2022 Oxygen saturation in Blood 84 % 95-98 [facility] Comment on above: Reference ranges ref lect baseline specimens only Whole blood pHOrdered By: Rolanda lj Pringlemarilee on 08-10-2022 pH (Bld) 7.470 Units 7.31-7.45 [facility] Urine culture routineOrdered By: Rodolfosharona Harley on 08-07-2022 Bacteria identified Cx Nom (U) 2 Days [facility] Activated partial thrombopla stin time (aPTT) in platelet poor plasma by coagulation aOrdered By: Rodolfo Harley on 08-05-2022 aPTT Coag (PPP) [Time] 35.9 s 25.1-36.5 [facility] [place] Basophils Auto (Bld) [#/Vol] Ordered By: Rodolfo Harley on 08-05-2022 Basophils (Bld) [#/Vol] 0.0 10*3/uL 0.0-0.2 [facility] Basophils/100 WBC Auto (Bld) Ordered By: Rodolfo Harley on 08-05-2022 Basophils/100 WBC (Bld) 0.5 % . [facility] Body fluid albumin measureme nt (mass/volume)Ordered By: Rodolfo Harley on 08-05-2022 Albumin (Body fld) [Mass/Vol] 3.8 g/dL 3.2-5.5 [facility] COVID-19 Positive/NegativeOr dered By: Rodolfo Harley on 08-05-2022 SARS-CoV-2 (COVID-19) N gene PAVAN+probe Ql (Resp) Negative Negative [facility] Comment on above: Testing for SARS-CoV -2 by RT-PCRThis test was developed and its performance characteristics determined by [employer] ([employer] and validated at the [facility]. This test has not been FDA [...] on 08-05-2022 Creatinine [Mass/Vol] 0.97 mg/dL 0.44-1.03 [facility] Eosinophils Auto (Bld) [#/Vo l]Ordered By: Rodolfo Harley on 08-05-2022 Eosinophils (Bld) [#/Vol] 0.2 10*3/uL 0.0-0.45 [facility] Eosinophils/100 WBC Auto (Bl d)Ordered By: Rodolfo Harley on 08-05-2022 Eosinophils/100 WBC (Bld) 4.9 % . [facility] Erythrocyte distribution wid th Auto (RBC) [Ratio]Ordered By: Rodolfo Harley on 08-05-2022 Erythrocyte distribution width (RBC) [Ratio] 14.5 % 11.9-15.3 [facility] Estimated glomerular filtrat ion rate (GFR) non- AmericanOrdered By: Rodolfo Harley on 08-05-2022 GFR/1.73 sq M.predicted among non-blacks MDRD (S/P/Bld) [Vol rate/Area] 59 mL/Min [facility] FUNGAL CULTUREon 08-05-2022 Fungus (Mycology) Culture Final report Abnormal [facility] Comment on above: Performed By: #### C XFUN ####[facility] [address] [place] [address]DrChen Rogel Fungus Stain Final report Normal [facility] Comment on above: Performed By: #### C XFUN ####[facility] [address] [place], [place] [address]WxChen Rogel Result 1 Comment Abnormal [facility] Comment on above: Result Comment: MILADYS/ Calcofluor preparation: no fungus observed. Performed By: #### C XFUN ####[facility] [address] [place] [id number]. Shahbaz Rogel Result Comment: Aspe rgillus versicolor Result 2 Penicillium species Abnormal [facility] Comment on above: Performed By: #### C XFUN ####[facility] [address] [place], [place] [address]IpChen Rogel Globulin Calc (S) [Mass/Vol] Ordered By: Rodolfo Harley on 08-05-2022 Globulin (S) [Mass/Vol] 2.9 g/dL [facility] Hematocrit Auto (Bld) [Volum e fraction]Ordered By: Rodolfo Harley on 08-05-2022 Hematocrit (Bld) [Volume fraction] 43.3 % 34.0-46.4 [facility] Hemoglobin [Mass/volume] in BloodOrdered By: Rodolfo Harley on 08-05-2022 Hemoglobin (Bld) [Mass/Vol] 14.3 g/dL 11.8-15.4 [facility] Laboratory - CoagulationOrde red By: Rodolfo Harley on 08-05-2022 PT Coag (PPP) [Time] 12.4 s 9.0-12.9 [facility] Laboratory - Hematology and Cell countsOrdered By: Rodolfo Harley on 08-05-2022 Nucleated RBC/100 WBC (Bld) [Ratio] 0.0 % 0-0.5 [facility] Leukocytes [#/volume] in Blo od by Automated countOrdered By: Rodolfo Harley on 08-05-2022 WBC (Bld) [#/Vol] 3.4 10*3/uL 4.5-11.0 [facility] Lymphocytes Auto (Bld) [#/Vo l]Ordered By: Rodolfo Harley on 08-05-2022 Lymphocytes (Bld) [#/Vol] 0.9 10*3/uL 1.00-4.8 [facility] Lymphocytes/100 WBC Auto (Bl d)Ordered By: Rodolfo Harley on 08-05-2022 Lymphocytes/100 WBC (Bld) 27.2 % . [facility] MCH Auto (RBC) [Entitic mass ]Ordered By: Rodolfo Harley on 08-05-2022 MCH (RBC) [Entitic mass] 28.4 pg 24.7-34.3 [facility] MCHC Auto (RBC) [Mass/Vol]Or dered By: Rodolfo Harley on 08-05-2022 MCHC (RBC) [Mass/Vol] 33.1 g/dL 32.0-35.0 [facility] MCV Auto (RBC) [Entitic vol] Ordered By: Rodolfo Harley on 08-05-2022 MCV (RBC) [Entitic vol] 85.9 fL 80-100 [facility] Monocytes Auto (Bld) [#/Vol] Ordered By: Rodolfo Harley on 08-05-2022 Monocytes (Bld) [#/Vol] 0.3 10*3/uL 0.0-0.8 [facility] Monocytes/100 WBC Auto (Bld) Ordered By: Rodolfo Harley on 08-05-2022 Monocytes/100 WBC (Bld) 7.5 % . [facility] Neutrophils Auto (Bld) [#/Vo l]Ordered By: Rodolfo Harley on 08-05-2022 Neutrophils (Bld) [#/Vol] 2.0 10*3/uL 1.8-7.7 [facility] Neutrophils/100 WBC Auto (Bl d)Ordered By: Rodolfo Harley on 08-05-2022 Neutrophils/100 WBC (Bld) 59.9 % . [facility] No Panel InformationOrdered By: Rodolfo Harley on 08-05-2022 Estimated GFR () > 60 mL/Min [facility] Comment on above: GFR estimated refere nce range: According to KDOQI guidelines, <60 ml/min/1.73m2 is sufficient to diagnose a patient with chronic kidney disease. Pharmacy Creatinine Clearance (Chem N/A [facility] Platelet mean volume Auto (B ld) [Entitic vol]Ordered By: Rodolfo Harley on 08-05-2022 Platelet mean volume (Bld) [Entitic vol] 8.1 fL 6.3-10.7 [facility] Platelet poor plasma interna tional normalized ratio (INR) by coagulation assay (relatOrdered By: Rodolfo Harley on 08-05-2022 INR Coag (PPP) [Relative time] 1.1 {INR} [facility] Comment on above: INR Therapeutic Rang [...] 08-05-2022 Platelets (Bld) [#/Vol] 243 10*3/uL 150-450 [facility] Protein [Mass/volume] in Ser um or PlasmaOrdered By: Rodolfo Harley on 08-05-2022 Protein [Mass/Vol] 6.7 g/dL 6.1-7.9 [facility] RBC Auto (Bld) [#/Vol]Ordere d By: Rodolfo Harley on 08-05-2022 RBC (Bld) [#/Vol] 5.04 10*6/uL 3.60-5.00 [facility] Serum or plasma alanine snyder otransferase measurement without P-5'-P (enzymatic activiOrdered By: Rodolfo Harley on 08-05-2022 ALT No additional P-5'-P [Catalytic activity/Vol] 14 U/L 1060 [facility] Serum or plasma albumin/glob ulin mass ratioOrdered By: Rodolfo Harley on 08-05-2022 Albumin/Globulin [Mass ratio] 1.3 {ratio} [facility] Serum or plasma alkaline sruthi sphatase measurement (enzymatic activity/volume)Ordered By: Rodolfo Harley on 08-05-2022 ALP [Catalytic activity/Vol] 91 U/L 32-92 [facility] Serum or plasma anion gap de terminationOrdered By: Rodolfo Harley on 08-05-2022 Anion gap [Moles/Vol] 14.3 mmol/L 6.0-15.0 [facility] Serum or plasma aspartate am inotransferase measurement (enzymatic activity/volume)Ordered By: Rodolfo Harley on 08-05-2022 AST [Catalytic activity/Vol] 21 U/L 10-42 [facility] Serum or plasma calcium dagoberto urement (mass/volume)Ordered By: Rodolfo Harley on 08-05-2022 Calcium [Mass/Vol] 9.5 mg/dL 8.2-10.2 [facility] Serum or plasma chloride anahy surement (moles/volume)Ordered By: Rodolfo Harley on 08-05-2022 Chloride [Moles/Vol] 102 mmol/L 95-114 [facility] Serum or plasma glucose dagoberto urement (mass/volume)Ordered By: Rodolfo Harley on 08-05-2022 Glucose [Mass/Vol] 76 mg/dL 70-100 [facility] Comment on above: ADA recommended refe rence rangeRandom Glucose Reference Range is dependent on time and content of last meal. Glucose of more than 200 mg/dL in a nonstressed, ambulatory subject supports the diagnosis of Diabetes Mellitus. Serum or plasma potassium me asurement (moles/volume)Ordered By: Rodolfo Harley on 08-05-2022 Potassium [Moles/Vol] 3.8 mmol/L 3.5-5.1 [facility] Serum or plasma sodium measu rement (moles/volume)Ordered By: Rodolfo Harley on 08-05-2022 Sodium [Moles/Vol] 138 mmol/L 136-146 [facility] Serum or plasma total biliru bin measurement (mass/volume)Ordered By: Rodolfo Harley on 08-05-2022 Bilirubin [Mass/Vol] 0.7 mg/dL 0.3-1.2 [facility] Serum or plasma total carbon dioxide measurement (moles/volume)Ordered By: Rodolfo Harley on 08-05-2022 CO2 [Moles/Vol] 25.5 mmol/L 22.0-30.0 [facility] Serum or plasma urea nitroge n measurement (mass/volume)Ordered By: Rodolfo Harley on 08-05-2022 Urea nitrogen [Mass/Vol] 12 mg/dL 9- [facility] Urine culture routineOrdered By: Rodolfo Harley on 08-05-2022 Bacteria identified Cx Nom (U) 2 Days [facility] XR ANKLE LT MIN 3 Von 2021 XR ANKLE LT MIN 3 V Normal [facility] BNPon 07-06-2022 Natriuretic peptide B (Bld) [Mass/Vol] 843.0 pg/mL Normal <=900.0 [facility] Comment on above: Performed By: #### B SEE SUPERVISOR, CRP, CMP ####[facility] [address] [place] [address]Dr. Shahbaz Rogel CBC W MANUAL DIFFon 07-06-20 22 ATYPICAL LYMPH # Normal [facility] Comment on above: Performed By: #### C BCMAN ####[facility] [address] [place], [place] [address]Dr. Shahbaz Rogel ATYPICAL LYMPH % Normal [facility] Comment on above: Performed By: #### C CAIN ####[facility] [address] [place], [place] [address]Dr. Shahbaz Rogel BAND # 0.0 103/ul Normal 0.0-0.3 [facility] Comment on above: Performed By: #### C CAIN ####[facility] [address] [place], [place] [address]Dr. Shahbaz Rogel BAND % 0 % Normal 0-5 [facility] Comment on above: Performed By: #### C BCBRICE ####[facility] [address] [place], [place] [address]Dr. Shahbaz Rogel BASOM # 0.00 103/ul Normal 0.00-0.10 [facility] Comment on above: Performed By: #### C BCBRICE ####[facility] [address] [place], [place] [address]Dr. Shahbaz Rogel BASOM % 0.0 % Critically low 0.2-2.0 [facility] Comment on above: Performed By: #### C BCBRICE ####[facility] [address] [place], [place] [address]Dr. Shahbaz Rogel BLAST # Normal [facility] Comment on above: Performed By: #### C BCBRICE ####[facility] [address] [place], [place] [address]Dr. Shahbaz Rogel BLAST % Normal [facility] Comment on above: Performed By: #### C BCBRICE ####[facility] [address] [place] [id number]. Shahbaz Rogel CORRECTED WBC Normal 4.0-11.0 [facility] Comment on above: Performed By: #### C CAIN ####[facility] [address] [place] [id number]. Shahbaz Rogel EOS # 0.00 103/ul Normal 0.00-0.70 [facility] Comment on above: Performed By: #### C CAIN ####[facility] [address] [place] [address]Dr. Shahbaz Rogel EOS% 0.0 % Critically low 0.9-7.0 [facility] Comment on above: Performed By: #### C CAIN ####[facility] [address] [place], [place] [address]Dr. Shahbaz Rogel HCT 40.3 % Normal 36.0-48.0 [facility] Comment on above: Performed By: #### C CAIN ####[facility] [address] [place], [place] [address]Dr. Shahbaz Rogel HGB 12.7 g/dl Normal 12.0-16.0 [facility] Comment on above: Performed By: #### C CAIN ####[facility] [address] [place], [place] [address]Dr. Shahbaz Rogel LYMPHM # 0.41 103/ul Critically low 1.20-3.80 [facility] Comment on above: Performed By: #### C CAIN ####[facility] [address] [place] [address]Dr. Shahbaz Rogel LYMPHM% 7.0 % Critically low 20.5-60.0 [facility] Comment on above: Performed By: #### C CAIN ####[facility] [address] [place], [place] [address]Dr. Shahbaz Rogel MCH 28.0 pg Normal 26.7-34.0 [facility] Comment on above: Performed By: #### C CAIN ####[facility] [address] [place], [place] [id number]. Shahbaz Rogel MCHC 31.5 g/dl Normal 29.9-35.2 [facility] Comment on above: Performed By: #### C CAIN ####[facility] [address] [place] [address]Dr. Shahbaz Rogel MCV 89.0 fL Normal 81.0-99.0 [facility] Comment on above: Performed By: #### C CAIN ####[facility] [address] [place] [id number]. Shahbaz Rogel METAMYELOCYTE # Normal [facility] Comment on above: Performed By: #### C CAIN ####[facility] [address] [place] [address]Dr. Shahbaz Rogel METAMYELOCYTE % Normal [facility] Comment on above: Performed By: #### C CAIN ####[facility] [address] [place], [place] [address]Dr. Shahbaz Rogel MONOM# 0.00 103/ul Critically low 0.30-0.80 [facility] Comment on above: Performed By: #### C CAIN ####[facility] [address] [place], [place] [address]Dr. Shahbaz Rogel MONOM% 0.0 % Critically low 1.7-12.0 [facility] Comment on above: Performed By: #### C CAIN ####[facility] [address] [place] [id number]. Shahbaz Rogel MPV 9.8 fL Normal 9.5-13.5 [facility] Comment on above: Performed By: #### C CAIN ####[facility] [address] [place], [place] [id number]. Shahbaz Rogel MYELOCYTE # Normal [facility] Comment on above: Performed By: #### C CAIN ####[facility] [address] [place], [place] [id number]. Shahbaz Rogel MYELOCYTE % Normal [facility] Comment on above: Performed By: #### C CAIN ####[facility] [address] [place], [place] [id number]. Shahbaz Rogel NRBC Normal [facility] Comment on above: Performed By: #### C CAIN ####[facility] [address] [place] [id number]. Shahbaz Rogel PLT 187 103/ul Normal 150-450 [facility] Comment on above: Performed By: #### C CAIN ####[facility] [address] [place], [place] [address]Df. Shahbaz Rogel RBC 4.53 106/ul Normal 4.20-5.40 [facility] Comment on above: Performed By: #### C CAIN ####[facility] [address]dralez[address] [place] [id number]. Shahbaz Rogel RDW 13.3 % Normal 11.0-15.0 [facility] Comment on above: Performed By: #### C CAIN ####[facility] Mhicyuvhsw[address] [place] [id number]. Shahbaz Rogel SEG # 5.49 103/ul Normal 1.40-6.50 [facility] Comment on above: Performed By: #### C CAIN ####[facility] Zxftlwyfkh23[address] [place] [id number]. Shahbaz Rogel SEG % 93.0 % Critically high 43.0-75.0 [facility] Comment on above: Performed By: #### C CAIN ####[facility] Ostwtbnvrh[address] [place] [id number]. Shahbaz Rogel WBC 5.9 103/ul Normal 4.0-11.0 [facility] Comment on above: Performed By: #### C CAIN ####[facility] Ngpprvdnxz8719 [place] [phone]. Shahbaz Rogel CRPon 07-06-2022 CRP [Mass/Vol] mg/L Normal <=1.0 [facility] Comment on above: Performed By: #### B SEE SUPERVISOR, CRP, CMP ####[facility] Epveubfnyw36[address] [place] [phone]. Lilajarrod Rogel PROF 14(COMP METB)on 022 Albumin [Mass/Vol] 3.4 g/dL Normal 3.4-5.0 [facility] Comment on above: Performed By: #### B SEE SUPERVISOR, CRP, CMP ####[facility] Oxfdsegbum[address] [place] [address]Dr. Shahbaz Rogel Albumin/Globulin [Mass ratio] 1.0 {ratio} Normal [facility] Comment on above: Performed By: #### B SEE SUPERVISOR, CRP, CMP ####[facility] Trtefqwsvr[address] [place] [address]Dr. Shahbaz Rogel ALP [Catalytic activity/Vol] 92 U/L Normal 46-116 [facility] Comment on above: Performed By: #### B SEE SUPERVISOR, CRP, CMP ####[facility] Mglbczfrby[address] [place], [place] [address]Dr. Shahbaz Rogel ALT [Catalytic activity/Vol] 21 U/L Normal 14-59 [facility] Comment on above: Performed By: #### B SEE SUPERVISOR, CRP, CMP ####[facility] Ryiaosjmtg198[address] [place], [place] [address]Dr. Shahbaz Rogel Anion gap [Moles/Vol] 13.4 mmol/L Normal [facility] Comment on above: Performed By: #### B SEE SUPERVISOR, CRP, CMP ####[facility] Yvfejunpai[address] [place], [place] [address]Dr. Shahbaz Rogel AST [Catalytic activity/Vol] 16 U/L Normal 15-37 [facility] Comment on above: Performed By: #### B SEE SUPERVISOR, CRP, CMP ####[facility] Epwlgavfyq[address] [place], [place] [address]Dr. Shahbaz Rogel Bilirubin [Mass/Vol] 0.2 mg/dL Normal 0.2-1.0 [facility] Comment on above: Performed By: #### B SEE SUPERVISOR, CRP, CMP ####[facility] Sfvbfqjadx8[address] [place], [place] [address]Dr. Shahbaz Rogel Calcium [Mass/Vol] 9.3 mg/dL Normal 8.5-10.1 [facility] Comment on above: Performed By: #### B SEE SUPERVISOR, CRP, CMP ####[facility] Wgyqgobgwx[address] [place], [place] [address]Dr. Shahbaz Rogel Chloride [Moles/Vol] 105 mmol/L Normal 98-107 [facility] Comment on above: Performed By: #### B SEE SUPERVISOR, CRP, CMP ####[facility] Pmspucvlbg85[address] [place] [address]Dr. Shahbaz Rogel CO2 [Moles/Vol] 23.2 mmol/L Normal 21.0-32.0 [facility] Comment on above: Performed By: #### B SEE SUPERVISOR, CRP, CMP ####[facility] Luqdhwkhwi[address] [place], [place] [address]Dr. Shahbaz Rogel Creatinine [Mass/Vol] 1.23 mg/dL Critically high 0.55-1.02 [facility] Comment on above: Performed By: #### B SEE SUPERVISOR, CRP, CMP ####[facility] Gdwrixzwve8[address] [place], [place] [address]Dr. Shahbaz Rogel EGFR-AF PUERTO RICAN 55 mL/min/1.73m2 Critically low >=60 [facility] Comment on above: Performed By: #### B SEE SUPERVISOR, CRP, CMP ####[facility] Rwfqkirdgi9[address] [place], [place] [address]Dr. Shahbaz Rogel EGFR-NON AF PUERTO RICAN 45 mL/min/1.73m2 Critically low >=60 [facility] Comment on above: Performed By: #### B SEE SUPERVISOR, CRP, CMP ####[facility] Qdugalwvrv70[address] [place], [place] [address]Dr. Shahbaz Rogel Globulin (S) [Mass/Vol] 3.3 g/dL Normal [facility] Comment on above: Performed By: #### B SEE SUPERVISOR, CRP, CMP ####[facility] Gprpahdfxt8[address] [place] [address]Dr. Shahbaz Rogel Glucose [Mass/Vol] 171 mg/dL Critically high 74-106 [facility] Comment on above: Performed By: #### B SEE SUPERVISOR, CRP, CMP ####[facility] Ihibhamktu7[address] [place] [address]Dr. Shahbaz Rogel Potassium [Moles/Vol] 3.6 mmol/L Normal 3.5-5.1 [facility] Comment on above: Performed By: #### B SEE SUPERVISOR, CRP, CMP ####[facility] Zndendmilr47[address] [place] [address]Dr. Shahbaz Rogel Protein [Mass/Vol] 6.7 g/dL Normal 6.4-8.2 [facility] Comment on above: Performed By: #### B SEE SUPERVISOR, CRP, CMP ####[facility] Tjlhkttrod27[address] [place] [address]Dr. Shahbaz Rogel Sodium [Moles/Vol] 138 mmol/L Normal 136-145 [facility] Comment on above: Performed By: #### B SEE SUPERVISOR, CRP, CMP ####[facility] Dqwfmredxb4216[address] [place], [place] [address]Dr. Shahbaz Rogel Urea nitrogen [Mass/Vol] 21.0 mg/dL Critically high 7.0-18.0 [facility] Comment on above: Performed By: #### B SEE SUPERVISOR, CRP, CMP ####[facility] Jbnghufxdv67[address] [place], [place] [address]Dr. Shahbaz Rogel Urea nitrogen/Creatinine [Mass ratio] 17.1 mg/mg Normal [facility] Comment on above: Performed By: #### B SEE SUPERVISOR, CRP, CMP ####[facility] Qyqnpfexil[address] [place], [place] [address]Dr. Shahbaz Rogel XR CHEST 2 Von 07-06-2022 XR CHEST 2 V Normal [facility] BNPon 07-05-2022 Natriuretic peptide B (Bld) [Mass/Vol] 83.0 pg/mL Normal <=900.0 [facility] Comment on above: Performed By: #### C RP, CMP, BNP ####[facility] Otxvyonpko35[address] [place], [place] [address]Dr. Shahbaz Rogel CBC AUTO DIFFon 07-05-2022 BASO # 0.0 103/ul Normal 0.0-0.1 [facility] Comment on above: Performed By: #### C BC ####[facility] Kknjvnupko224[address] [place], [place] [address]Dr. Shahbaz Rogel Basophils/100 WBC (Bld) 0.4 % Normal 0.2-2.0 [facility] Comment on above: Performed By: #### C BC ####[facility] Lqvzylvnuz260[address] [place] [phone]. Shahbaz Rogel EO # 0.1 103/ul Normal 0.0-0.7 [facility] Comment on above: Performed By: #### C BC ####[facility] Rwitzlrzvt166[address] [place], [place] [address]Dr. Shahbaz Rogel Eosinophils/100 WBC (Bld) 2.9 % Normal 0.9-7.0 [facility] Comment on above: Performed By: #### C BC ####[facility] Frvsdhzfzq[address] [place], [place] [address]Dr. Shahbaz Rogel Erythrocyte distribution width (RBC) [Ratio] 13.4 % Normal 11.0-15.0 [facility] Comment on above: Performed By: #### C BC ####[facility] Azawcxfshq50[address] [place], [place] [address]Dr. Shahbaz Rogel Hematocrit (Bld) [Volume fraction] 41.7 % Normal 36.0-48.0 [facility] Comment on above: Performed By: #### C BC ####[facility] Rghasckmzf[address] [place], [place] [address]Dr. Shahbaz Rogel Hemoglobin (Bld) [Mass/Vol] 12.9 g/dL Normal 12.0-16.0 [facility] Comment on above: Performed By: #### C BC ####[facility] Skgrmkhtdm5[address] [place], [place] [address]Dr. Shahbaz Rogel IG # 0.00 10e3/ul Normal 0.00-0.03 [facility] Comment on above: Performed By: #### C BC ####[facility] Xdjenvphao04[address] [place], [place] [address]Dr. Shahbaz Rogel IG % 0.0 % Normal 0.0-0.5 [facility] Comment on above: Performed By: #### C BC ####[facility] Ctvzqppqtg726[address] [place], [place] [address]Dr. Shahbaz Rogel LYMPH # 1.5 103/ul Normal 1.2-3.8 [facility] Comment on above: Performed By: #### C BC ####[facility] Mvpydrpcnj9854 [place] [phone]. Shahbaz Rogel Lymphocytes/100 WBC (Bld) 32.9 % Normal 20.5-60.0 [facility] Comment on above: Performed By: #### C BC ####[facility] Yhpjkileyu20[address] [place] [phone]. Lilajarrod Rogel MANUAL DIFF REQ NO Normal [facility] Comment on above: Performed By: #### C BC ####[facility] Tvvfqhoows[address] [place], [place] [address]Dr. Shahbaz Juan F MCH (RBC) [Entitic mass] 28.0 pg Normal 26.7-34.0 [facility] Comment on above: Performed By: #### C BC ####[facility] Pqqykpmwis[address] [place], [place] [address]Dr. Shahbaz Juan F MCHC (RBC) [Mass/Vol] 30.9 g/dL Normal 29.9-35.2 [facility] Comment on above: Performed By: #### C BC ####[facility] Kqnuuydwlz[address] [place], [place] [address]Dr. Shahbaz Juan F MCV (RBC) [Entitic vol] 90.5 fL Normal 81.0-99.0 [facility] Comment on above: Performed By: #### C BC ####[facility] Klbdwmhqpk[address] [place], [place] [address]Dr. Lilajarrod Juan F MONO # 0.4 103/ul Normal 0.3-0.8 [facility] Comment on above: Performed By: #### C BC ####[facility] Ltrasszmki[address] [place], [place] [address]Dr. Lilajarrod Rogel Monocytes/100 WBC (Bld) 8.0 % Normal 1.7-12.0 [facility] Comment on above: Performed By: #### C BC ####[facility] Bgfnkrbwcm[address] [place], [place] [address]Dr. Shahbaz Rogel NEUT # 2.5 103/ul Normal 1.4-6.5 [facility] Comment on above: Performed By: #### C BC ####[facility] Qaoookydny4[address] [place] [phone]. Shahbaz Rogel Neutrophils/100 WBC (Bld) 55.8 % Normal 43.0-75.0 [facility] Comment on above: Performed By: #### C BC ####[facility] Cxqcgkayta1598 [place] [phone]. Shahbaz Rogel Platelet mean volume (Bld) [Entitic vol] 9.7 fL Normal 9.5-13.5 [facility] Comment on above: Performed By: #### C BC ####[facility] Mhvnlvglll[address] [place] [address]Dr. Shahbaz Rogel PLT 158 103/ul Normal 150-450 [facility] Comment on above: Performed By: #### C BC ####[facility] Dqbqsokurr[address] [place], [place] [address]Dr. Shahbaz Rogel RBC 4.61 106/ul Normal 4.20-5.40 [facility] Comment on above: Performed By: #### C BC ####[facility] Qwcicklmcs[address] [place], [place] [address]Dr. Shahbaz Rogel WBC 4.5 103/ul Normal 4.0-11.0 [facility] Comment on above: Performed By: #### C BC ####[facility] Dihoziyxxu[address] [place] [address]Dr. Shahbaz Rogel CRPon 07-05-2022 CRP [Mass/Vol] mg/L Normal <=1.0 [facility] Comment on above: Performed By: #### C RP, CMP, BNP ####[facility] Kkhxnpguik[address] [place] [address]Dr. Shahbaz Rogel ECHO LIMITED STUDYon ECHO LIMITED STUDY Normal [facility] PROF 14(COMP METB)on Albumin [Mass/Vol] 3.2 g/dL Critically low 3.4-5.0 [facility] Comment on above: Performed By: #### C RP, CMP, BNP ####[facility] Avjaikuxps[address] [place], [place] [address]Dr. Shahbaz Rogel Albumin/Globulin [Mass ratio] 1.0 {ratio} Normal [facility] Comment on above: Performed By: #### C RP, CMP, BNP ####[facility] Twrfpjtwlc[address] [place] [address]Dr. Shahbaz Rogel ALP [Catalytic activity/Vol] 88 U/L Normal 46-116 [facility] Comment on above: Performed By: #### C RP, CMP, BNP ####[facility] Nonxprykud[address] [place] [address]Dr. Shahbaz Rogel ALT [Catalytic activity/Vol] 17 U/L Normal 14-59 [facility] Comment on above: Performed By: #### C RP, CMP, BNP ####[facility] Akmtormglh[address] [place] [address]Dr. Lilajarrod Juan F Anion gap [Moles/Vol] 12.5 mmol/L Normal [facility] Comment on above: Performed By: #### C RP, CMP, BNP ####[facility] Klzfytcixj17[address] [place], [place] [address]Dr. Shahbaz Juan F AST [Catalytic activity/Vol] 18 U/L Normal 15-37 [facility] Comment on above: Performed By: #### C RP, CMP, BNP ####[facility] Suvtnbeclb[address] [place], [place] [address]Dr. Shahbaz Juan F Bilirubin [Mass/Vol] 0.3 mg/dL Normal 0.2-1.0 [facility] Comment on above: Performed By: #### C RP, CMP, BNP ####[facility] Tltgcizpop[address] [place] [address]Dr. Shahbaz Juan F Calcium [Mass/Vol] 8.9 mg/dL Normal 8.5-10.1 [facility] Comment on above: Performed By: #### C RP, CMP, BNP ####[facility] Tdwwsgoqfn8446 [place] [address]Dr. Shahbaz Rogel Chloride [Moles/Vol] 103 mmol/L Normal 98-107 [facility] Comment on above: Performed By: #### C RP, CMP, BNP ####[facility] Zvbfhxrdgx3986 [place] [address]Dr. Shahbaz Rogel CO2 [Moles/Vol] 28.1 mmol/L Normal 21.0-32.0 [facility] Comment on above: Performed By: #### C RP, CMP, BNP ####[facility] Ilpbkttlht6[address] [place] [address]Dr. Shahbaz Rogel Creatinine [Mass/Vol] 1.24 mg/dL Critically high 0.55-1.02 [facility] Comment on above: Performed By: #### C RP, CMP, BNP ####[facility] Dvxgckytmt5[address] [place] [address]Dr. Shahbaz Rogel EGFR-AF PUERTO RICAN 54 mL/min/1.73m2 Critically low >=60 [facility] Comment on above: Performed By: #### C RP, CMP, BNP ####[facility] Vhtiavgqit67[address] [place] [address]Dr. Shahbaz Juan F EGFR-NON AF PUERTO RICAN 45 mL/min/1.73m2 Critically low >=60 [facility] Comment on above: Performed By: #### C RP, CMP, BNP ####[facility] Tjsbdhcodm0[address] [place] [address]Dr. Shahbaz Rogel Globulin (S) [Mass/Vol] 3.1 g/dL Normal [facility] Comment on above: Performed By: #### C RP, CMP, BNP ####[facility] Cwdopqlzag7[address] [place] [address]Dr. Shahbaz Rogel Glucose [Mass/Vol] 115 mg/dL Critically high 74-106 [facility] Comment on above: Performed By: #### C RP, CMP, BNP ####[facility] Cxfvhgxvqo1367 [place] [address]Dr. Shahbaz Rogel Potassium [Moles/Vol] 3.6 mmol/L Normal 3.5-5.1 [facility] Comment on above: Performed By: #### C RP, CMP, BNP ####[facility] Gqykgfznys485[address] [place] [address]Dr. Shahbaz Rogel Protein [Mass/Vol] 6.3 g/dL Critically low 6.4-8.2 [facility] Comment on above: Performed By: #### C RP, CMP, BNP ####[facility] Evfhczlurh04[address] [place] [address]Dr. Shahbaz Rogel Sodium [Moles/Vol] 140 mmol/L Normal 136-145 [facility] Comment on above: Performed By: #### C RP, CMP, BNP ####[facility] Rqbojcuxuz8661 [place] [address]Dr. Shahbaz Rogel Urea nitrogen [Mass/Vol] 18.0 mg/dL Normal 7.0-18.0 [facility] Comment on above: Performed By: #### C RP, CMP, BNP ####[facility] Rzzeoswthp[address] [place] [address]Dr. Shahbaz Rogel Urea nitrogen/Creatinine [Mass ratio] 14.5 mg/mg Normal [facility] Comment on above: Performed By: #### C RP, CMP, BNP ####[facility] Guqmwjwxqa05[address] [place] [address]Dr. Shahbaz Rogel T3, TOTAL (TRIIODOTHYRONINE) on 07-05-2022 T3, TOTAL 95 ng/dL Normal 71-180 [facility] Comment on above: Performed By: #### T 3TOTAL ####[facility] Eanucivabe[address] [place] [address]Dr. Shahbaz Rogel CARDIAC ROSALINA 3-6on 2 CK [Catalytic activity/Vol] 78 U/L Normal 26-192 [facility] Comment on above: Performed By: #### C MREP ####[facility] Djooghyipt33[address] [place] [address]Dr. Shahbaz Rogel CK.MB [Mass/Vol] 1.44 ng/mL Normal <=3.60 [facility] Comment on above: Performed By: #### C MREP ####[facility] Tmkuqioztx78[address] [place] [address]Dr. Shahbaz Rogel HSTROP 9.0 pg/mL Normal 4.0-51.3 [facility] Comment on above: Result Comment: CUT- OFF POINTS HAVE BEEN ESTABLISHED BASED ON THE FOURTH UNIVERSAL DEFINITIONS OF MYOCARDIALINFARCTION. THE UPPER REFERENCE LIMIT (URL) OF TROPONIN, DEFINED THE 99TH PERCENTILE OFcTnI DISTRIBUTION IN A REFERENCE POPULATION, HAS BEEN CONFIRMED THE DECISION THRESHOLDFOR VT DIAGNOSIS. Performed By: #### C MREP ####[facility] Ahhkqsrhyq9232 [place] [phone]. Shahbaz Rogel CK [Catalytic activity/Vol] 88 U/L Normal 26-192 [facility] Comment on above: Performed By: #### C MREP ####[facility] Xxbsyxjuml0178 [place] [phone]. Shahbaz Rogel CK.MB [Mass/Vol] 1.38 ng/mL Normal <=3.60 [facility] Comment on above: Performed By: #### C MREP ####[facility] Nrubbljxnn8515 [place] [phone]. Shahbaz Rogel HSTROP 7.0 pg/mL Normal 4.0-51.3 [facility] Comment on above: Result Comment: CUT- OFF POINTS HAVE BEEN ESTABLISHED BASED ON THE FOURTH UNIVERSAL DEFINITIONS OF MYOCARDIALINFARCTION. THE UPPER REFERENCE LIMIT (URL) OF TROPONIN, DEFINED THE 99TH PERCENTILE OFcTnI DISTRIBUTION IN A REFERENCE POPULATION, HAS BEEN CONFIRMED THE DECISION THRESHOLDFOR VT DIAGNOSIS. Performed By: #### C MREP ####[facility] Bhvonwehvx7193 [place] [phone]. Shahbaz Rogel CARDIAC ROSALINA ADMITon 022 CK [Catalytic activity/Vol] 87 U/L Normal 26-192 [facility] Comment on above: Performed By: #### C CINDY PAZ ####[facility] Rvuucdtzou8162 [place] [phone]. Shahbaz Rogel CK.MB [Mass/Vol] 1.80 ng/mL Normal <=3.60 [facility] Comment on above: Performed By: #### C JACKSON CMADM ####[facility] Jbpzryercu6862 [place] [phone]. Shahbaz Rogel HSTROP 7.6 pg/mL Normal 4.0-51.3 [facility] Comment on above: Result Comment: CUT- OFF POINTS HAVE BEEN ESTABLISHED BASED ON THE FOURTH UNIVERSAL DEFINITIONS OF MYOCARDIALINFARCTION. THE UPPER REFERENCE LIMIT (URL) OF TROPONIN, DEFINED THE 99TH PERCENTILE OFcTnI DISTRIBUTION IN A REFERENCE POPULATION, HAS BEEN CONFIRMED THE DECISION THRESHOLDFOR VT DIAGNOSIS. Performed By: #### C JACKSON, CINDY ####[facility] Wleaelviss[address] [place] [address]Dr. Shahbaz Rogel LEN 67 ng/mL Normal 9-82 [facility] Comment on above: Performed By: #### C JACKSON, CINDY ####[facility] Whlhdqmfur[address] [place], [place] [address]Dr. Shahbaz Rogel CBC AUTO DIFFon 07-04-2022 BASO # 0.0 103/ul Normal 0.0-0.1 [facility] Comment on above: Performed By: #### C BC ####[facility] Ppxoaulvdq[address] [place], [place] [address]Dr. Shahbaz Rogel Basophils/100 WBC (Bld) 0.7 % Normal 0.2-2.0 [facility] Comment on above: Performed By: #### C BC ####[facility] Diokyocgmf89[address] [place], [place] [address]Dr. Lilajarrod Rogel EO # 0.1 103/ul Normal 0.0-0.7 [facility] Comment on above: Performed By: #### C BC ####[facility] Ylinotozpr26[address] [place], [place] [address]Dr. Shahbaz Rogel Eosinophils/100 WBC (Bld) 3.4 % Normal 0.9-7.0 [facility] Comment on above: Performed By: #### C BC ####[facility] Aronwufnzt74[address] [place], [place] [address]Dr. Shahbaz Rogel Erythrocyte distribution width (RBC) [Ratio] 13.3 % Normal 11.0-15.0 [facility] Comment on above: Performed By: #### C BC ####[facility] Xuecwtnxhr[address] [place], [place] [address]Dr. Shahbaz Rogel Hematocrit (Bld) [Volume fraction] 42.1 % Normal 36.0-48.0 [facility] Comment on above: Performed By: #### C BC ####[facility] Bllviecqfo4723 [place] [phone]. Shahbaz Rogel Hemoglobin (Bld) [Mass/Vol] 13.3 g/dL Normal 12.0-16.0 [facility] Comment on above: Performed By: #### C BC ####[facility] Cimspygrog7445 [place] [phone]. Shahbaz Rogel IG # 0.01 10e3/ul Normal 0.00-0.03 [facility] Comment on above: Performed By: #### C BC ####[facility] Yrwhlzhkiu4095 [place] [address]Dr. Shahbaz Rogel IG % 0.3 % Normal 0.0-0.5 [facility] Comment on above: Performed By: #### C BC ####[facility] Jfcuhwuydu7762 [place] [address]Dr. Shahbaz Rogel LYMPH # 1.0 103/ul Critically low 1.2-3.8 [facility] Comment on above: Performed By: #### C BC ####[facility] Pczrcvgnaj4401 [place] [address]Dr. Shahbaz Rogel Lymphocytes/100 WBC (Bld) 35.6 % Normal 20.5-60.0 [facility] Comment on above: Performed By: #### C BC ####[facility] Xenzslhacd0563 [place] [address]Dr. Shahbaz Rogel MANUAL DIFF REQ NO Normal [facility] Comment on above: Performed By: #### C BC ####[facility] Juoagmupbj[address] [place], [place] [address]Dr. Shahbaz Rogel MCH (RBC) [Entitic mass] 27.9 pg Normal 26.7-34.0 [facility] Comment on above: Performed By: #### C BC ####[facility] Orfmzjfput[address] [place], [place] [address]Dr. Shahbaz Rogel MCHC (RBC) [Mass/Vol] 31.6 g/dL Normal 29.9-35.2 [facility] Comment on above: Performed By: #### C BC ####[facility] Yphiwogdpf9628 [place] [phone]. Shahbaz Rogel MCV (RBC) [Entitic vol] 88.3 fL Normal 81.0-99.0 [facility] Comment on above: Performed By: #### C BC ####[facility] Kyctahbffb4975 [place] [phone]. Shahbaz Rogel MONO # 0.2 103/ul Critically low 0.3-0.8 [facility] Comment on above: Performed By: #### C BC ####[facility] Qoufjjvwtj[address] [place], [place] [address]Dr. Shahbaz Juan F Monocytes/100 WBC (Bld) 7.9 % Normal 1.7-12.0 [facility] Comment on above: Performed By: #### C BC ####[facility] Sjoeypzqvd[address] [place], [place] [address]Dr. Shahbaz Rogel NEUT # 1.5 103/ul Normal 1.4-6.5 [facility] Comment on above: Performed By: #### C BC ####[facility] Jdbutunsqu38[address] [place], [place] [address]Dr. Shahbaz Rogel Neutrophils/100 WBC (Bld) 52.1 % Normal 43.0-75.0 [facility] Comment on above: Performed By: #### C BC ####[facility] Qvbukrzfti[address] [place], [place] [address]Dr. Shahbaz Rogel Platelet mean volume (Bld) [Entitic vol] 9.5 fL Normal 9.5-13.5 [facility] Comment on above: Performed By: #### C BC ####[facility] Iuwepcxajx174[address] [place], [place] [address]Dr. Shahbaz Rogel PLT 172 103/ul Normal 150-450 [facility] Comment on above: Performed By: #### C BC ####[facility] Lvddkaywus[address] [place], [place] [address]Dr. Shahbaz Juan F RBC 4.77 106/ul Normal 4.20-5.40 [facility] Comment on above: Performed By: #### C BC ####[facility] Ulvisfnyte9257 [place] [phone]. Shahbaz Rogel WBC 2.9 103/ul Critically low 4.0-11.0 [facility] Comment on above: Performed By: #### C BC ####[facility] Hqifyadjdy[address] [place], [place] [address]Dr. Shahbaz Rogel CELL COUNT BODY FLUIDon 10-0 BASOS Normal [facility] Comment on above: Performed By: #### B FCC ####[facility] Yvpstkkeas[address] [place], [place] [address]Dr. Shahbaz Rogel Eosinophils/100 WBC (Bld) 4 % Normal [facility] Comment on above: Performed By: #### B FCC ####[facility] Yezhhntjyf[address] [place], [place] [address]Dr. Shahbaz Rogel Lymphocytes/100 WBC (Bld) 12 % Normal [facility] Comment on above: Performed By: #### B FCC ####[facility] Pnpcffranb[address] [place], [place] [address]Dr. Shahbaz Rogel Monocytes/100 WBC (Bld) 4 % Normal [facility] Comment on above: Performed By: #### B FCC ####[facility] Pshlquxmrg[address] [place], [place] [address]Dr. Shahbaz Rogel RBC 67 cubic mm Normal [facility] Comment on above: Performed By: #### B FCC ####[facility] [address]qhuhvoukt[address] [place], [place] [address]Dr. Shahbaz Rogel SEGS 80 % Normal [facility] Comment on above: Performed By: #### B FCC ####[facility] Qbnseknolv[address] [place], [place] [address]Dr. Shahbaz Rogel WBC BODY FLUID 223 cubic mm Normal [facility] Comment on above: Performed By: #### B FCC ####[facility] Vwkxrrjgbc[address] [place], [place] [address]Dr. Shahbaz Rogel CULTURE OTHERon 07-04-2022 CULTURE OTHER Culture Observations : NO GROWTH AT 48 HOURS. Normal [facility] Comment on above: Performed By: #### O THCX ####[facility] Mjdeaqpghy4354 [place] [id number]. Shahbaz Rogel CYTOLOGYon 07-04-2022 SENT TO REF LAB 07/04/22 Normal [facility] Comment on above: Performed By: #### C YTO ####[facility] Qnzwwjegxa6923 [place] [id number]. Shahbaz Rogel Covid-19 PCR (CVDTBH)on SARS-CoV-2 (COVID-19) RNA PAVAN+probe Ql (Unsp spec) Not detected Normal NOT DETECTED [facility] Comment on above: Result Comment: When [...] for this test is supported by the Grocery Worker of Health and Human Service's declaration that [...] be used). Performed By: #### C VDTBH ####[facility] Mothhpuurf[address] [place] [phone]. Shahbaz Rogel GRAM STAINon 07-04-2022 COMMENTS NO ORGANISMS OBSERVED Normal [facility] Comment on above: Performed By: #### G STAIN ####[facility] Uguexfrzxj7[address] [place] [phone]. Shahbaz Rogel DIPHTHEROIDS Normal [facility] Comment on above: Performed By: #### G STAIN ####[facility] Uxhrcymtpf17[address] [place] [phone]. Shahbaz Rogel EPITHELIALS Normal [facility] Comment on above: Performed By: #### G STAIN ####[facility] Buotytqbhk27[address] [place] [phone]. Shahbaz Rogel FUNGAL ELEMENTS Normal [facility] Comment on above: Performed By: #### G STAIN ####[facility] Bcijtxjfvb[address] [place] [address]Dr. Shahbaz Rogel GRAM NEG BACILLI Normal [facility] Comment on above: Performed By: #### G STAIN ####[facility] Gwdhvsqhxf36[address] [place] [address]Dr. Shahbaz Rogel GRAM NEG DIPPLOCOCCI Normal [facility] Comment on above: Performed By: #### G STAIN ####[facility] Emuqxgwmzh[address] [place], [place] [address]Dr. Shahbaz Rogel GRAM POS BACILLI Normal [facility] Comment on above: Performed By: #### G STAIN ####[facility] Qbxadyoajj64[address] [place], [place] [address]Dr. Shahbaz Rogel GRAM POSITIVE COCCI Normal [facility] Comment on above: Performed By: #### G STAIN ####[facility] Vxqkwaceek[address] [place], [place] [address]Dr. Shahbaz Rogel GRAM STAIN SOURCE Rt Lower Lobe Bronch ial Washing Normal [facility] Comment on above: Performed By: #### G STAIN ####[facility] Thqyxkuimt[address] [place], [place] [address]Dr. Shahbaz Rogel GS_DIPTH Normal [facility] Comment on above: Performed By: #### G STAIN ####[facility] Bzeyygyrdi[address] [place], [place] [address]Dr. Shahbaz Rogel WBC RARE Normal [facility] Comment on above: Performed By: #### G STAIN ####[facility] Bqtgsmkutj28[address] [place] [address]Dr. Shahbaz Rogel PROF 14(COMP METB)on 022 Albumin [Mass/Vol] 3.6 g/dL Normal 3.4-5.0 [facility] Comment on above: Performed By: #### C MP, CMADM ####[facility] Kqsfjyqerd6[address] [place], [place] [address]Dr. Shahbaz Rogel Albumin/Globulin [Mass ratio] 1.1 {ratio} Normal [facility] Comment on above: Performed By: #### C JACKSON, CMAROXANNA ####[facility] Uivtjppygk30[address] [place] [address]Dr. Shahbaz Rogel ALP [Catalytic activity/Vol] 102 U/L Normal 46-116 [facility] Comment on above: Performed By: #### C JACKSON, CMAROXANNA ####[facility] Qteuhoewtx3332 [place] [address]Dr. Shahbaz Rogel ALT [Catalytic activity/Vol] 19 U/L Normal 14-59 [facility] Comment on above: Performed By: #### C JACKSON, CINDY ####[facility] Vnianamryt23[address] [place], [place] [address]Dr. Shahbaz Rogel Anion gap [Moles/Vol] 9.5 mmol/L Normal [facility] Comment on above: Performed By: #### C JACKSON, CMAROXANNA ####[facility] Rzzblfnsij13[address] [place], [place] [address]Dr. Shahbaz Rogel AST [Catalytic activity/Vol] 19 U/L Normal 15-37 [facility] Comment on above: Performed By: #### C JACKSON, CMAROXANNA ####[facility] Kdrikyjflw[address] [place], [place] [address]Dr. Shahbaz Rogel Bilirubin [Mass/Vol] 0.3 mg/dL Normal 0.2-1.0 [facility] Comment on above: Performed By: #### C JACKSON, CMAROXANNA ####[facility] Hrjebijvzp[address] [place], [place] [address]Dr. Shahbaz Rogel Calcium [Mass/Vol] 8.8 mg/dL Normal 8.5-10.1 [facility] Comment on above: Performed By: #### C JACKSON, CMAROXANNA ####[facility] Dogkxaxtrt224[address] [place], [place] [address]Dr. Shahbaz Rogel Chloride [Moles/Vol] 107 mmol/L Normal 98-107 [facility] Comment on above: Performed By: #### C JACKSON, CMAROXANNA ####[facility] Qozndretvg[address] [place], [place] [address]Dr. Shahbaz Rogel CO2 [Moles/Vol] 29.5 mmol/L Normal 21.0-32.0 [facility] Comment on above: Performed By: #### C CINDY PAZ ####[facility] Qowjosyqer84[address] [place] [address]Dr. Shahbaz Rogel Creatinine [Mass/Vol] 0.97 mg/dL Normal 0.55-1.02 [facility] Comment on above: Performed By: #### C JACKSON, CINDY ####[facility] Ahegnlakij42[address] [place] [address]Dr. Shahbaz Rogel EGFR-AF PUERTO RICAN >60 Normal >=60 [facility] Comment on above: Performed By: #### C CINDY PAZ ####[facility] Cyktbzfqeh44[address] [place], [place] [address]Dr. Shahbaz Rogel EGFR-NON AF PUERTO RICAN 59 mL/min/1.73m2 Critically low >=60 [facility] Comment on above: Performed By: #### C CINDY PAZ ####[facility] Ercxtkdbnp37[address] [place], [place] [address]Dr. Shahbaz Rogel Globulin (S) [Mass/Vol] 3.2 g/dL Normal [facility] Comment on above: Performed By: #### C CINDY PAZ ####[facility] Lrvrsbytdb73[address] [place], [place] [address]Dr. Shahbaz Rogel Glucose [Mass/Vol] 89 mg/dL Normal 74-106 [facility] Comment on above: Performed By: #### C CINDY PAZ ####[facility] Iiytvkwvtf1686 [place] [address]Dr. Shahbaz Rogel Potassium [Moles/Vol] 4.0 mmol/L Normal 3.5-5.1 [facility] Comment on above: Performed By: #### C JACKSON, CINDY ####[facility] Ykuzrljvns[address] [place], [place] [address]Dr. Shahbaz Rogel Protein [Mass/Vol] 6.8 g/dL Normal 6.4-8.2 [facility] Comment on above: Performed By: #### C CINDY PAZ ####[facility] Mwakrrczrg4478 [place] [phone]. Shahbaz Rogel Sodium [Moles/Vol] 142 mmol/L Normal 136-145 [facility] Comment on above: Performed By: #### C JACKSON, CINDY ####[facility] Kwibipukeh1036 [place] [phone]. Shahbaz Rogel Urea nitrogen [Mass/Vol] 11.0 mg/dL Normal 7.0-18.0 [facility] Comment on above: Performed By: #### C JACKSON, CINDY ####[facility] Ljymtkayxf8823 [place] [phone]. Shahbaz Rogel Urea nitrogen/Creatinine [Mass ratio] 11.3 mg/mg Normal [facility] Comment on above: Performed By: #### C CINDY PAZ ####[facility] Upokhsvlbu7[address] [place], [place] [address]Dr. Shahbaz Rogel T4on 07-04-2022 T4 [Mass/Vol] 4.70 ug/dL Critically low 4.80-13.90 [facility] Comment on above: Performed By: #### T SH, T4 ####[facility] Nqaghaflxc20[address] [place] [address]Dr. Shahbaz Rogel TSHon 07-04-2022 TSH 0.359 uIU/mL Normal 0.358-3.74 0 [facility] Comment on above: Performed By: #### T SH, T4 ####[facility] Menozfeswd83[address] [place], [place] [address]Dr. Shahbaz Rogel XR CHEST 1 Von 07-04-2022 XR CHEST 1 V Normal [facility] XR CHEST 1 V Normal [facility] CHLAMYDIA PNEUMONIAE IgG IgM IgAon 06-27-2022 Chlamydia pneumoniae IgA <1:16 Normal Neg:<1:16 [facility] Comment on above: Performed By: #### C HLMPNE ####[facility] Dqjmntwlxs[address] [place], [place] [address]Dr. Shahbaz Rogel Chlamydia pneumoniae IgG <1:16 Normal Neg:<1:16 [facility] Comment on above: Performed By: #### C HLMPNE ####[facility] Pdhfxoitfd0565 [place], [place] [address]Jv. Shahbaz Rogel Chlamydia pneumoniae IgM <1:10 Normal Neg:<1:10 [facility] Comment on above: Performed By: #### C HLMPNE ####[facility] Hidwqnvdfm86[address] [place], [place] [address]Rc. Shahbaz Rogel Test Information: Comment Normal [facility] Comment on above: Result Comment: This test was developed and its performance characteristics determinedby [employer]. It has not been cleared or approved by the Food and DrugAdministration. The FDA has determined that such clearance or approvalis not necessary. Results of this test are for investigationalpurposes only. The result should not be used as a diagnosticprocedure without confirmation of the diagnosis by another medicallyestablished diagnostic product or procedure. Performed By: #### C HLMPNE ####[facility] Ftkindwghk57[address] [place], [place] [address]Cz. Shahbaz Rogel Covid-19 PCR (CVDTB)on 06-03 SARS-CoV-2 (COVID-19) RNA PAVAN+probe Ql (Unsp spec) Not detected Normal NOT DETECTED [facility] Comment on above: Result Comment: This test is not yet approved or cleared by the [place] FDA. When there are no FDA-approved or cleared tests available, and other criteria are met, FDA can make tests available under an emergency access mechanism called an Emergency Use Authorization (EUA). The EUA for this test is supported by the Grocery Worker of Health and Human Service's (HHS's) [...] with SARS-CoV-2. Performed By: #### C VDTBH ####[facility] Fghlbsafvv14[address] [place] [address]Dr. Shahbaz Rogel CYCLIC CITRULLINATED PEPTIDE AB (CCP)on 06-25-2022 CCP Antibodies IgG/IgA 13 units Normal 0-19 [facility] Comment on above: Result Comment: Nega tive <20 Weak positive 20 - 39 Moderate positive 40 - 59 Strong positive >59 Performed By: #### C CPAB ####[facility] Fsborvghwz364[address] [place], [place] [address]Dr. Shahbaz Rogel ANTI NEUTROPHIL CYTOPLASMIC AB (ANCA) PRon 06-24-2022 Anti-MPO Antibodies <0.2 Normal 0.0-0.9 [facility] Comment on above: Result Comment: Perf ormed at: BN Performed By: #### A NCAP ####[facility] Bipwzfiybl211[address] [place], [place] [address]Dr. Lilajarrod Rogel Anti-PR3 Antibodies 5.0 units Critically high 0.0-0.9 [facility] Comment on above: Result Comment: Perf ormed at: BN Performed By: #### A NCAP ####[facility] Emisyipecp[address] [place], [place] [address]Dr. Shahbaz Rogel Atypical pANCA <1:20 Normal Neg:<1:20 [facility] Comment on above: Result Comment: The atypical pANCA pattern has been observed in a significantpercentage of patients with ulcerative colitis, primary sclerosingcholangitis and autoimmune hepatitis.Performed at: CB Performed By: #### A NCAP ####[facility] Edzgdqehsh[address] [place], [place] [address]Dr. Shahbaz Rogel Cytoplasmic (C-ANCA) <1:20 Normal Neg:<1:20 [facility] Comment on above: Result Comment: Perf ormed at: CB Performed By: #### A NCAP ####[facility] Pwsdtojakw[address] [place], [place] [address]Dr. Shahbaz Rogel Perinuclear (P-ANCA) 1:80 Critically high Neg:<1:20 [facility] Comment on above: Result Comment: The presence of positive fluorescence exhibiting P-ANCA or C-ANCApatterns alone is not specific for the diagnosis of Ada'sGranulomatosis (WG) or microscopic polyangiitis. Decisions abouttreatment should not be based solely on ANCA IFA results. TheInternational ANCA Group Consensus recommends follow up testing ofpositive sera with both CA-3 and MPO-ANCA enzyme immunoassays. Asmany as 5% serum samples are positive only by EIA.Ref. AM J Clin Pathol 1999;111:507-513.Performed at: CB Performed By: #### A NCAP ####[facility] Zyksrbmnpq6[address] [place] [address]Dr. Shahbaz Rogel ANTIGLOMERULAR BASEMENT MEMB ANTOINE ABSon 06-24-2022 Anti-GBM Antibodies <0.2 Normal 0.0-0.9 [facility] Comment on above: Performed By: #### A GBM ####[facility] Fsybsenexl[address] [place], [place] [address]Dr. Shahbaz Rogel SHAHANA EIA W/REFLEX 5 BIOMARKER Son 06-23-2022 SHAHANA Direct Negative Normal Negative [facility] Comment on above: Performed By: #### A NARF ####[facility] Mqotukpsam324[address] [place], [place] [address]Dr. Shahbaz Rogel ANTISCLERODERMA ABon 022 Antiscleroderma-70 Antibodies <0.2 Normal 0.0-0.9 [facility] Comment on above: Performed By: #### A NSCLER ####[facility] Ylcavkcrsb[address] [place], [place] [address]Dr. Shahbaz Rogel RHEUMATOID FACTORon 06-23-20 RA Latex Turbid. <10.0 Normal <14.0 [facility] Comment on above: Performed By: #### R F ####[facility] Xlbswkysen9[address] [place], [place] [address]Dr. Shahbaz Rogel CBC AUTO DIFFon 06-22-2022 BASO # 0.0 103/ul Normal 0.0-0.1 [facility] Comment on above: Performed By: #### C BC ####[facility] Euvrnlxlqd35[address] [place], [place] [address]Dr. Shahbaz Rogel Basophils/100 WBC (Bld) 0.5 % Normal 0.2-2.0 [facility] Comment on above: Performed By: #### C BC ####[facility] Lsfhryqkqo3450 [place] [phone]. Shahbaz Rogel EO # 0.1 103/ul Normal 0.0-0.7 [facility] Comment on above: Performed By: #### C BC ####[facility] Lfjscdyakb2[address] [place] [address]Dr. Shahbaz Rogel Eosinophils/100 WBC (Bld) 3.4 % Normal 0.9-7.0 [facility] Comment on above: Performed By: #### C BC ####[facility] Sqmzwkrokg80[address] [place], [place] [address]Dr. Shahbaz Rogel Erythrocyte distribution width (RBC) [Ratio] 13.2 % Normal 11.0-15.0 [facility] Comment on above: Performed By: #### C BC ####[facility] Ggfxvtqvxk250[address] [place], [place] [address]Dr. Shahbaz Rogel Hematocrit (Bld) [Volume fraction] 45.6 % Normal 36.0-48.0 [facility] Comment on above: Performed By: #### C BC ####[facility] Sysikldxyg05[address] [place], [place] [address]Dr. Shahbaz Rogel Hemoglobin (Bld) [Mass/Vol] 14.7 g/dL Normal 12.0-16.0 [facility] Comment on above: Performed By: #### C BC ####[facility] Auvcynhrhc05[address] [place], [place] [address]Dr. Shahbaz Rogel IG # 0.01 10e3/ul Normal 0.00-0.03 [facility] Comment on above: Performed By: #### C BC ####[facility] Xkrykxzsww69[address] [place], [place] [address]Dr. Shahbaz Rogel IG % 0.3 % Normal 0.0-0.5 [facility] Comment on above: Performed By: #### C BC ####[facility] Qoqhozyxpr9[address] [place], [place] [address]Dr. Shahbaz Rogel LYMPH # 1.0 103/ul Critically low 1.2-3.8 [facility] Comment on above: Performed By: #### C BC ####[facility] Iahjlaenho3032 [place] [phone]. Shahbaz Rogel Lymphocytes/100 WBC (Bld) 25.7 % Normal 20.5-60.0 [facility] Comment on above: Performed By: #### C BC ####[facility] Zyqzkezitb8640 [place] [phone]. Lilajarrod Rogel MANUAL DIFF REQ NO Normal [facility] Comment on above: Performed By: #### C BC ####[facility] Frphjhwzou9200 [place] [phone]. Shahbaz Juan F MCH (RBC) [Entitic mass] 28.1 pg Normal 26.7-34.0 [facility] Comment on above: Performed By: #### C BC ####[facility] Omraamznbp[address] [place], [place] [address]Dr. Shahbaz Juan F MCHC (RBC) [Mass/Vol] 32.2 g/dL Normal 29.9-35.2 [facility] Comment on above: Performed By: #### C BC ####[facility] Dnogvjssuz[address] [place], [place] [address]Dr. Shahbaz Juan F MCV (RBC) [Entitic vol] 87.2 fL Normal 81.0-99.0 [facility] Comment on above: Performed By: #### C BC ####[facility] Ipyeacphaw22[address] [place], [place] [address]Dr. Lilajarrod Juan F MONO # 0.2 103/ul Critically low 0.3-0.8 [facility] Comment on above: Performed By: #### C BC ####[facility] Kruhtvcxph9[address] [place], [place] [address]Dr. Lilajarrod Rogel Monocytes/100 WBC (Bld) 6.0 % Normal 1.7-12.0 [facility] Comment on above: Performed By: #### C BC ####[facility] [address]gakbeumll[address] [place], [place] [address]Dr. Shahbaz Rogel NEUT # 2.5 103/ul Normal 1.4-6.5 [facility] Comment on above: Performed By: #### C BC ####[facility] Lavwnroktv5119 [place] [phone]. Shahbaz Juan F Neutrophils/100 WBC (Bld) 64.1 % Normal 43.0-75.0 [facility] Comment on above: Performed By: #### C BC ####[facility] Uhrxgojygw8345 [place] [phone]. Shahbaz Rogel Platelet mean volume (Bld) [Entitic vol] 9.4 fL Critically low 9.5-13.5 [facility] Comment on above: Performed By: #### C BC ####[facility] Wmsndidtwo[address] [place] [address]Dr. Shahbaz Rogel PLT 212 103/ul Normal 150-450 [facility] Comment on above: Performed By: #### C BC ####[facility] Ursfmtxfdh9163 [place] [address]Dr. Shahbaz Rogel RBC 5.23 106/ul Normal 4.20-5.40 [facility] Comment on above: Performed By: #### C BC ####[facility] Gtbchriyae1499 [place] [phone]. Shahbaz Rogel WBC 3.9 103/ul Critically low 4.0-11.0 [facility] Comment on above: Performed By: #### C BC ####[facility] Ytcsgkxwoh01[address] [place] [address]Dr. Shahbaz Rogel PROF 14(COMP METB)on 022 Albumin [Mass/Vol] 4.1 g/dL Normal 3.4-5.0 [facility] Comment on above: Performed By: #### C MP ####[facility] Wchagfcqur3687 [place] [address]Dr. Shahbaz Rogel Albumin/Globulin [Mass ratio] 1.1 {ratio} Normal [facility] Comment on above: Performed By: #### C MP ####[facility] Rgkckjoxrz0353 [place] [phone]. Shahbaz Rogel ALP [Catalytic activity/Vol] 133 U/L Critically high 46-116 [facility] Comment on above: Performed By: #### C MP ####[facility] Gczjstlcle7440 [place] [phone]. Shahbaz Rogel ALT [Catalytic activity/Vol] 29 U/L Normal 14-59 [facility] Comment on above: Performed By: #### C MP ####[facility] Qnmgfxsdgn7760 [place] [phone]. Shahbaz Rogel Anion gap [Moles/Vol] 10.9 mmol/L Normal [facility] Comment on above: Performed By: #### C MP ####[facility] Ipykctlwtk4893 [place] [phone]. Shahbaz Rogel AST [Catalytic activity/Vol] 23 U/L Normal 15-37 [facility] Comment on above: Performed By: #### C MP ####[facility] Fqwbxcnwox3156 [place] [address]Dr. Shahbaz Rogel Bilirubin [Mass/Vol] 0.3 mg/dL Normal 0.2-1.0 [facility] Comment on above: Performed By: #### C MP ####[facility] Zojbfzogrt[address] [place], [place] [address]Dr. Shahbaz Rogel Calcium [Mass/Vol] 9.1 mg/dL Normal 8.5-10.1 [facility] Comment on above: Performed By: #### C MP ####[facility] Vbelovsmpb[address] [place], [place] [address]Dr. Shahbaz Rogel Chloride [Moles/Vol] 103 mmol/L Normal 98-107 [facility] Comment on above: Performed By: #### C MP ####[facility] Bndlaarjva8915 [place] [phone]. Shahbaz Rogel CO2 [Moles/Vol] 30.8 mmol/L Normal 21.0-32.0 [facility] Comment on above: Performed By: #### C MP ####[facility] Zhxbibdthv4041 [place] [phone]. Shahbaz Rogel Creatinine [Mass/Vol] 1.02 mg/dL Normal 0.55-1.02 [facility] Comment on above: Performed By: #### C MP ####[facility] Kmozdjataw0388 [place] [phone]. Shahbaz Rogel EGFR-AF PUERTO RICAN >60 Normal >=60 [facility] Comment on above: Performed By: #### C MP ####[facility] Reykzrepug[address] [place] [address]Dr. Shahbaz Rogel EGFR-NON AF PUERTO RICAN 56 mL/min/1.73m2 Critically low >=60 [facility] Comment on above: Performed By: #### C MP ####[facility] Zyxagepaet7[address] [place] [address]Dr. Shahbaz Rogel Globulin (S) [Mass/Vol] 3.7 g/dL Normal [facility] Comment on above: Performed By: #### C MP ####[facility] Fkrloybsen8317 [place] [address]Dr. Shahbaz Rogel Glucose [Mass/Vol] 80 mg/dL Normal 74-106 [facility] Comment on above: Performed By: #### C MP ####[facility] Xzmpzjnagp[address] [place], [place] [address]Dr. Shahbaz Rogel Potassium [Moles/Vol] 3.7 mmol/L Normal 3.5-5.1 [facility] Comment on above: Performed By: #### C MP ####[facility] Lybsnrmogq6088 [place] [address]Dr. Shahbaz Rogel Protein [Mass/Vol] 7.8 g/dL Normal 6.4-8.2 [facility] Comment on above: Performed By: #### C MP ####[facility] Xbilklklks2062 [place] [address]Dr. Shahbaz Rogel Sodium [Moles/Vol] 141 mmol/L Normal 136-145 [facility] Comment on above: Performed By: #### C MP ####[facility] Kmyvonazcf[address] [place], [place] [address]Dr. Shahbaz Rogel Urea nitrogen [Mass/Vol] 10.0 mg/dL Normal 7.0-18.0 [facility] Comment on above: Performed By: #### C MP ####[facility] Gxhazbpkea[address] [place], [place] [address]Dr. Shahbaz Rogel Urea nitrogen/Creatinine [Mass ratio] 9.8 mg/mg Normal [facility] Comment on above: Performed By: #### C MP ####[facility] Kngtqjvuha0923 [place] [phone]. Shahbaz Rogel SED RATE WESTERGRENon 2021 SED RATE 17 mm/hr Normal <=30 [facility] Comment on above: Performed By: #### S EDR ####[facility] Kwhuleqbvf59[address] [place], [place] [address]Dr. Shahbaz Rogel CT CHEST HI RESOLUTIONon CT CHEST HI RESOLUTION Normal [facility] XR ANKLE RT MIN 3 VIEWSon XR ANKLE RT MIN 3 VIEWS Normal [facility] CT CHEST WO CONon 03-03-2022 CT CHEST WO CON Normal [facility] CT CSPINE WO CONon CT CSPINE WO CON Normal [facility] XR CHEST 2 Von 03-03-2022 XR CHEST 2 V Normal [facility] XR STERNUM MIN 2 VIEWSon XR STERNUM MIN 2 VIEWS Normal [facility] CT HEAD WO CONon 03-02-2022 CT HEAD WO CON Normal [facility] CBC AUTO DIFFon 01-21-2022 BASO # 0.0 103/ul Normal 0.0-0.1 [facility] Comment on above: Performed By: #### C BC ####[facility] Ldqaysaodh[address] [place], [place] [address]Dr. Shahbaz Juan F Basophils/100 WBC (Bld) 0.0 % Critically low 0.2-2.0 [facility] Comment on above: Performed By: #### C BC ####[facility] Zkitkqowxe8[address] [place], [place] [address]Dr. Shahbaz Rogel EO # 0.0 103/ul Normal 0.0-0.7 [facility] Comment on above: Performed By: #### C BC ####[facility] Lxleydlrms[address] [place], [place] [address]Dr. Shahbaz Rogel Eosinophils/100 WBC (Bld) 0.0 % Critically low 0.9-7.0 [facility] Comment on above: Performed By: #### C BC ####[facility] Syujppjjkd314[address] [place], [place] [address]Dr. Shahbaz Rogel Erythrocyte distribution width (RBC) [Ratio] 14.2 % Normal 11.0-15.0 [facility] Comment on above: Performed By: #### C BC ####[facility] Dnoofdsfev09[address] [place], [place] [address]Dr. Shahbaz Rogel Hematocrit (Bld) [Volume fraction] 38.9 % Normal 36.0-48.0 [facility] Comment on above: Performed By: #### C BC ####[facility] Dmgxxtnpjz76[address] [place], [place] [address]Dr. Shahbaz Rogel Hemoglobin (Bld) [Mass/Vol] 11.8 g/dL Critically low 12.0-16.0 [facility] Comment on above: Performed By: #### C BC ####[facility] Nmcekxxcpg[address] [place], [place] [address]Dr. Shahbaz Rogel IG # 0.03 10e3/ul Normal 0.00-0.03 [facility] Comment on above: Performed By: #### C BC ####[facility] Sncxeiaqbx[address] [place], [place] [address]Dr. Shahbaz Rogel IG % 0.4 % Normal 0.0-0.5 [facility] Comment on above: Performed By: #### C BC ####[facility] Ptpymfeiky[address] [place], [place] [address]Dr. Shahbaz Rogel LYMPH # 0.8 103/ul Critically low 1.2-3.8 [facility] Comment on above: Performed By: #### C BC ####[facility] Iistpqanxa[address] [place], [place] [address]Dr. Shahbaz Rogel Lymphocytes/100 WBC (Bld) 10.3 % Critically low 20.5-60.0 [facility] Comment on above: Performed By: #### C BC ####[facility] Nkpeggtqzo9[address] [place], [place] [address]Dr. Shahbaz Rogel MANUAL DIFF REQ NO Normal [facility] Comment on above: Performed By: #### C BC ####[facility] [address]ougt[address] [place] [address]DrChen Rogel MCH (RBC) [Entitic mass] 27.1 pg Normal 26.7-34.0 [facility] Comment on above: Performed By: #### C BC ####[facility] Ctazgrgqtl9[address] [place], [place] [address]DrChen Rogel MCHC (RBC) [Mass/Vol] 30.3 g/dL Normal 29.9-35.2 [facility] Comment on above: Performed By: #### C BC ####[facility] Jjsgsnwxfs7532[address] [place], [place] [address]DrChen Rogel MCV (RBC) [Entitic vol] 89.2 fL Normal 81.0-99.0 [facility] Comment on above: Performed By: #### C BC ####[facility] Hvoovrjwwp334[address] [place], [place] [address]DrChen Rogel MONO # 0.4 103/ul Normal 0.3-0.8 [facility] Comment on above: Performed By: #### C BC ####[facility] Kvsobjgbwx0070[address] [place], [place] [address]DrChen Rogel Monocytes/100 WBC (Bld) 4.7 % Normal 1.7-12.0 [facility] Comment on above: Performed By: #### C BC ####[facility] Lnlsjvokct375[address] [place], [place] [address]DrChen Rogel NEUT # 6.6 103/ul Critically high 1.4-6.5 [facility] Comment on above: Performed By: #### C BC ####[facility] Uxpettpocv9965[address] [place], [place] [address]DrChen Rogel Neutrophils/100 WBC (Bld) 84.6 % Critically high 43.0-75.0 [facility] Comment on above: Performed By: #### C BC ####[facility] Zlwfwnfbov435[address] [place], [place] [address]DrChen Rogel Platelet mean volume (Bld) [Entitic vol] 10.0 fL Normal 9.5-13.5 [facility] Comment on above: Performed By: #### C BC ####[facility] Lmhdilfiuh[address] [place] [address]Dr. Shahbaz Rogel PLT 165 103/ul Normal 150-450 [facility] Comment on above: Performed By: #### C BC ####[facility] Khnzaixosa537[address] [place], [place] [address]Dr. Shahbaz Rogel RBC 4.36 106/ul Normal 4.20-5.40 [facility] Comment on above: Performed By: #### C BC ####[facility] Fabtnkntar3110[address] [place], [place] [address]Dr. Lilajarrod Rogel WBC 7.8 103/ul Normal 4.0-11.0 [facility] Comment on above: Performed By: #### C BC ####[facility] Xhvnvpgemw7433[address] [place], [place] [address]Dr. Shahbaz Rogel ER URINE PROFILEon 2 Bilirubin Ql (U) Negative Normal NEGATIVE [facility] Comment on above: Performed By: #### E RUR ####[facility] Hhackeqbeh9826[address] [place], [place] [address]Dr. Shahbaz Rogel Clarity (U) CLEAR Normal CLEAR [facility] Comment on above: Performed By: #### E RUR ####[facility] Bfqtrtkqor0916[address] [place], [place] [address]Dr. Shahbaz Rogel Color (U) LT. YELLOW Normal YELLOW [facility] Comment on above: Performed By: #### E RUR ####[facility] Dgjkstwzke089[address] [place], [place] [address]Dr. Shahbaz Rogel ERUAHD A micrscopic examina tion will be performed if indicated. Normal [facility] Comment on above: Performed By: #### E RUR ####[facility] Fofnaxigmh412[address] [place], [place] [address]Dr. Shahbaz Rogel Glucose Ql (U) Negative Normal NEGATIVE [facility] Comment on above: Performed By: #### E RUR ####[facility] Blonbgzjew[address] [place] [address]Dr. Shahbaz Rogel Hemoglobin Ql (U) Negative Normal NEGATIVE [facility] Comment on above: Performed By: #### E RUR ####[facility] Ygvxbfbwot610[address] [place], [place] [address]Dr. Shahbaz Rogel Ketones Ql (U) Negative Normal NEGATIVE [facility] Comment on above: Performed By: #### E RUR ####[facility] Pudhyadvql378371 [address] [place], [place] [address]Dr. Shahbaz Rogel LEUKOCYTES Negative Normal NEGATIVE [facility] Comment on above: Performed By: #### E RUR ####[facility] Ecowmplgaf4075[address] [place], [place] [address]Dr. Shahbaz Rogel Nitrite Ql (U) Negative Normal NEGATIVE [facility] Comment on above: Performed By: #### E RUR ####[facility] Ngotbxdvma789371 [address] [place], [place] [address]Dr. Shahbaz Rogel pH (U) 6.0 [pH] Normal 5-9 [facility] Comment on above: Performed By: #### E RUR ####[facility] Sqfshnnoty399[address] [place], [place] [address]Dr. Shahbaz Rogel SPEC GRAVITY 1.020 Normal 1.005-<=1. 025 [facility] Comment on above: Performed By: #### E RUR ####[facility] Klqcnorvgl988371 [address] [place], [place] [address]Dr. Shahbaz Rogel UA PROTEIN Negative Normal NEGATIVE/ TRACE [facility] Comment on above: Performed By: #### E RUR ####[facility] Inyvaqxgor338[address] [place], [place] [address]Dr. Shahbaz Rogel UR MICRO IND NOT INDICATED Normal [facility] Comment on above: Performed By: #### E RUR ####[facility] Egmemfwfvt846371 [address] [place], [place] [address]Dr. Shahbaz Rogel Urobilinogen Qn (U) 0.2 {Melida'U}/dL Normal 0.2 - 1. 0 [facility] Comment on above: Performed By: #### E RUR ####[facility] Wgzqcnlzhr475[address] [place] [address]Dr. Shahbaz Rogel POINT OF CARE GLUCOSEon 01-01 Glucose [Mass/Vol] 151 mg/dL Critically high 74-106 [facility] Comment on above: Performed By: #### P OCGLUC ####[facility] Tklemgtgac75[address] [place] [address]Dr. Shahbaz Rogel Glucose [Mass/Vol] 248 mg/dL Critically high 74-106 [facility] Comment on above: Performed By: #### P OCGLUC ####[facility] Cknubhnpoq96[address] [place] [address]Dr. Shahbaz Rogel PROF 14(COMP METB)on 022 Albumin [Mass/Vol] 2.8 g/dL Critically low 3.4-5.0 [facility] Comment on above: Performed By: #### C MP ####[facility] Otcphpirak8901[address] [place], [place] [address]Dr. Shahbaz Rogel Albumin/Globulin [Mass ratio] 0.9 {ratio} Normal [facility] Comment on above: Performed By: #### C MP ####[facility] Vknfrowxpr401[address] [place], [place] [address]Dr. Shahbaz Rogel ALP [Catalytic activity/Vol] 90 U/L Normal 46-116 [facility] Comment on above: Performed By: #### C MP ####[facility] Fvokdroffm315[address] [place], [place] [address]Dr. Shahbaz Rogel ALT [Catalytic activity/Vol] 20 U/L Normal 14-59 [facility] Comment on above: Performed By: #### C MP ####[facility] Dqfiwejqsu97[address] [place] [address]Dr. Shahbaz Rogel Anion gap [Moles/Vol] 8.9 mmol/L Normal [facility] Comment on above: Performed By: #### C MP ####[facility] Pccrbijwue65[address] [place] [address]Dr. Shahbaz Rogel AST [Catalytic activity/Vol] 14 U/L Critically low 15-37 [facility] Comment on above: Performed By: #### C MP ####[facility] Hagiphtbms[address] [place] [address]Dr. Shahbaz Rogel Bilirubin [Mass/Vol] 0.1 mg/dL Critically low 0.2-1.3 [facility] Comment on above: Performed By: #### C MP ####[facility] Xtayskdgxn9470 [place] [address]Dr. Shahbaz Rogel Calcium [Mass/Vol] 8.2 mg/dL Critically low 8.5-10.1 [facility] Comment on above: Performed By: #### C MP ####[facility] Vmireawgkk970[address] [place], [place] [address]Dr. Shahbaz Rogel Chloride [Moles/Vol] 110 mmol/L Critically high 98-107 [facility] Comment on above: Performed By: #### C MP ####[facility] Nnpnbasduw649[address] [place], [place] [address]Dr. Shahbaz Rogel CO2 [Moles/Vol] 28.0 mmol/L Normal 22.0-30.0 [facility] Comment on above: Performed By: #### C MP ####[facility] Xletpurfca776471 [address] [place], [place] [address]Dr. Shahbaz Rogel Creatinine [Mass/Vol] 0.78 mg/dL Normal 0.52-1.04 [facility] Comment on above: Performed By: #### C MP ####[facility] Zejyrvchwp2633[address] [place], [place] [address]Dr. Shahbaz Juan F EGFR-AF PUERTO RICAN >60 Normal >=60 [facility] Comment on above: Performed By: #### C MP ####[facility] Cjuoasrnnj465[address] [place], [place] [address]Dr. Shahbaz Juan F EGFR-NON AF PUERTO RICAN >60 Normal >=60 [facility] Comment on above: Performed By: #### C MP ####[facility] Ilpearlojj429[address] [place], [place] [address]Dr. Shahbaz Juan F Globulin (S) [Mass/Vol] 3.1 g/dL Normal [facility] Comment on above: Performed By: #### C MP ####[facility] Btjnitrhcw2069 [place] [id number]. Shahbaz Rogel Glucose [Mass/Vol] 121 mg/dL Critically high 74-106 [facility] Comment on above: Performed By: #### C MP ####[facility] Nptcigletj6496 [place] [id number]. Shahbaz Rogel Potassium [Moles/Vol] 3.9 mmol/L Normal 3.4-5.0 [facility] Comment on above: Performed By: #### C MP ####[facility] Pvlasrawtv6691 [place] [id number]. Shahbaz Rogel Protein [Mass/Vol] 5.9 g/dL Critically low 6.1-8.2 [facility] Comment on above: Performed By: #### C MP ####[facility] Nrbzyfwdqj4501[address] [place], [place] [address]Dr. Shahbaz Rogel Sodium [Moles/Vol] 143 mmol/L Normal 137-145 [facility] Comment on above: Performed By: #### C MP ####[facility] Whhptykzrg6192 [place] [address]Dr. Shahbaz Rogel Urea nitrogen [Mass/Vol] 26.0 mg/dL Critically high 7.0-18.0 [facility] Comment on above: Performed By: #### C MP ####[facility] Ltjwaltmdc896[address] [place], [place] [address]Dr. Shahbaz Rogel Urea nitrogen/Creatinine [Mass ratio] 33.3 mg/mg Normal [facility] Comment on above: Performed By: #### C MP ####[facility] Plihnwofro8328 [place] [address]Dr. Shahbaz Rogel ZSVDU-8-MBTFGTEZJUBcf 2021 Fdgmn-1-Dqauqqivdim, Serum 154 mg/dL Normal 101-187 [facility] Comment on above: Performed By: #### A LPHA-1 ####[facility] Zhxzmibvqc1936[address] [place], [place] [address]Dr. Shahbaz Rogel CBC AUTO DIFFon 01-20-2022 BASO # 0.0 103/ul Normal 0.0-0.1 [facility] Comment on above: Performed By: #### C BC ####[facility] Ndyyztcxps922[address] [place], [place] [address]Dr. Shahbaz Rogel Basophils/100 WBC (Bld) 0.0 % Critically low 0.2-2.0 [facility] Comment on above: Performed By: #### C BC ####[facility] Bvqurelacc813871 [address] [place], [place] [address]Dr. Shahbaz Rogel EO # 0.0 103/ul Normal 0.0-0.7 [facility] Comment on above: Performed By: #### C BC ####[facility] Wedtbpqswl08217[address] [place], [place] [address]Dr. Shahbaz Rogel Eosinophils/100 WBC (Bld) 0.0 % Critically low 0.9-7.0 [facility] Comment on above: Performed By: #### C BC ####[facility] Deapgsednb860[address] [place], [place] [address]Dr. Shahbaz Rogel Erythrocyte distribution width (RBC) [Ratio] 13.7 % Normal 11.0-15.0 [facility] Comment on above: Performed By: #### C BC ####[facility] Qshviyywbk858671 [address] [place], [place] [address]Dr. Shahbaz Rogel Hematocrit (Bld) [Volume fraction] 41.2 % Normal 36.0-48.0 [facility] Comment on above: Performed By: #### C BC ####[facility] Cxtiiyauzb2649[address] [place], [place] [address]Dr. Shhabaz Rogel Hemoglobin (Bld) [Mass/Vol] 12.8 g/dL Normal 12.0-16.0 [facility] Comment on above: Performed By: #### C BC ####[facility] Kkbszbapow599[address] [place], [place] [address]Dr. Shahbaz Rogel IG # 0.10 10e3/ul Critically high 0.00-0.03 [facility] Comment on above: Performed By: #### C BC ####[facility] Fvkqmidhil576[address] [place], [place] [address]Dr. Shahbaz Rogel IG % 0.5 % Normal 0.0-0.5 [facility] Comment on above: Performed By: #### C BC ####[facility] Epohqjspnt889[address] [place], [place] [address]DrChen Rogel LYMPH # 0.7 103/ul Critically low 1.2-3.8 [facility] Comment on above: Performed By: #### C BC ####[facility] Jhgrqnhpqz635[address] [place], [place] [address]DrChen Rogel Lymphocytes/100 WBC (Bld) 6.2 % Critically low 20.5-60.0 [facility] Comment on above: Result Comment: dif. not rqd. same as 01/18/22 Performed By: #### C BC ####[facility] Gxvckdtdfl647[address] [place], [place] [address]DrChen Rogel MANUAL DIFF REQ NO Normal [facility] Comment on above: Performed By: #### C BC ####[facility] Oihinedzvd794[address] [place], [place] [address]DrChen Rogel MCH (RBC) [Entitic mass] 27.2 pg Normal 26.7-34.0 [facility] Comment on above: Performed By: #### C BC ####[facility] Xxutkoojup456[address] [place], [place] [address]DrChen Rogel MCHC (RBC) [Mass/Vol] 31.1 g/dL Normal 29.9-35.2 [facility] Comment on above: Performed By: #### C BC ####[facility] Bfhuzcczby350[address] [place], [place] [address]DrChen Rogel MCV (RBC) [Entitic vol] 87.5 fL Normal 81.0-99.0 [facility] Comment on above: Performed By: #### C BC ####[facility] Dmbmybocjz534[address] [place], [place] [address]DrChen Rogel MONO # 0.2 103/ul Critically low 0.3-0.8 [facility] Comment on above: Performed By: #### C BC ####[facility] Agmyiexcgq015171 [address] [place], [place] [address]Dr. Shahbaz Rogel Monocytes/100 WBC (Bld) 1.7 % Normal 1.7-12.0 [facility] Comment on above: Performed By: #### C BC ####[facility] Yizeczzdrr3978 [place] [address]Dr. Shahbaz Rogel NEUT # 9.8 103/ul Critically high 1.4-6.5 [facility] Comment on above: Performed By: #### C BC ####[facility] Pcdnfrjwyb7210 [place] [address]Dr. Shahbaz Rogel Neutrophils/100 WBC (Bld) 91.6 % Critically high 43.0-75.0 [facility] Comment on above: Performed By: #### C BC ####[facility] Xhfgeqexid5439 [place] [address]Dr. Shahbaz Rogel Platelet mean volume (Bld) [Entitic vol] 10.0 fL Normal 9.5-13.5 [facility] Comment on above: Performed By: #### C BC ####[facility] Kwmphvxlal6359 [place] [address]Dr. Shahbaz Rogel PLT 198 103/ul Normal 150-450 [facility] Comment on above: Performed By: #### C BC ####[facility] Gschscwwbd3043 [place] [address]Dr. Shahbaz Rogel RBC 4.71 106/ul Normal 4.20-5.40 [facility] Comment on above: Performed By: #### C BC ####[facility] Eklzeyxaem7224 [place] [address]Dr. Shahbaz Rogel WBC 10.7 103/ul Normal 4.0-11.0 [facility] Comment on above: Performed By: #### C BC ####[facility] Zwkioabrqy3922[address] [place], [place] [address]Dr. Shahbaz Rogel POINT OF CARE GLUCOSEon 04- Glucose [Mass/Vol] 157 mg/dL Critically high 74-106 T [facility] Comment on above: Performed By: #### P OCGLUC ####[facility] Rozeqidqrz4[address] [place], [place] [id number]. Shahbaz Rogel Glucose [Mass/Vol] 225 mg/dL Critically high 74-106 [facility] Comment on above: Performed By: #### P OCGLUC ####[facility] Qtkyugjdtr1661 [place] [address]Dr. Shahbaz Rogel Glucose [Mass/Vol] 185 mg/dL Critically high 74-106 [facility] Comment on above: Performed By: #### P OCGLUC ####[facility] Tqkqwdeogg8434 [place] [address]Dr. Shahbaz Rogel Glucose [Mass/Vol] 134 mg/dL Critically high -106 [facility] Comment on above: Performed By: #### P OCGLUC ####[facility] Wviuhzzuqz2820[address] [place], [place] [address]Dr. Shahbaz Juan F PROF 14(COMP METB)on 022 Albumin [Mass/Vol] 3.0 g/dL Critically low 3.4-5.0 [facility] Comment on above: Performed By: #### C MP ####[facility] Shhqqiimdp1423[address] [place], [place] [address]Dr. Shahbaz Juan F Albumin/Globulin [Mass ratio] 0.9 {ratio} Normal [facility] Comment on above: Performed By: #### C MP ####[facility] Awlsrbhjci183[address] [place], [place] [address]Dr. Shahbaz Juan F ALP [Catalytic activity/Vol] 81 U/L Normal 46-116 [facility] Comment on above: Performed By: #### C MP ####[facility] Xibfghqldo477[address] [place], [place] [address]Dr. Shahbaz Juan F ALT [Catalytic activity/Vol] 14 U/L Normal 14-59 [facility] Comment on above: Performed By: #### C MP ####[facility] Qxbwpowdsw278[address] [place], [place] [address]Dr. Shahbaz Juan F Anion gap [Moles/Vol] 13.1 mmol/L Normal [facility] Comment on above: Performed By: #### C MP ####[facility] Vfpnqenyeg9460[address] [place], [place] [address]Dr. Shahbaz Rogel AST [Catalytic activity/Vol] 20 U/L Normal 15-37 [facility] Comment on above: Performed By: #### C MP ####[facility] Tetfqmxwuz4028 [place] [address]Dr. Shahbaz Rogel Bilirubin [Mass/Vol] 0.3 mg/dL Normal 0.2-1.3 [facility] Comment on above: Performed By: #### C MP ####[facility] Mvviljfppq4306 [place] [address]Dr. Shahbaz Rogel Calcium [Mass/Vol] 8.5 mg/dL Normal 8.5-10.1 [facility] Comment on above: Performed By: #### C MP ####[facility] Uzievqvrcn2925 [place] [address]Dr. Shahbaz Rogel Chloride [Moles/Vol] 107 mmol/L Normal 98-107 [facility] Comment on above: Performed By: #### C MP ####[facility] Mweiljldsu9685 [place] [address]Dr. Shahbaz Rogel CO2 [Moles/Vol] 24.0 mmol/L Normal 22.0-30.0 [facility] Comment on above: Performed By: #### C MP ####[facility] Zfybijqtqe099[address] [place], [place] [address]Dr. Shahbaz Rogel Creatinine [Mass/Vol] 1.00 mg/dL Normal 0.52-1.04 [facility] Comment on above: Performed By: #### C MP ####[facility] Owpuaqnvza4897 [place] [address]Dr. Shahbaz Rogel EGFR-AF PUERTO RICAN >60 Normal >=60 [facility] Comment on above: Performed By: #### C MP ####[facility] Tnzyinclcg838[address] [place], [place] [address]Dr. Shahbaz Rogel EGFR-NON AF PUERTO RICAN 57 mL/min/1.73m2 Critically low >=60 [facility] Comment on above: Performed By: #### C MP ####[facility] Yejjtrpqzs8110[address] [place], [place] [address]Dr. Shahbaz Rogel Globulin (S) [Mass/Vol] 3.4 g/dL Normal [facility] Comment on above: Performed By: #### C MP ####[facility] Ddisievseb285271 [address] [place], [place] [address]Dr. Shahbaz Rogel Glucose [Mass/Vol] 153 mg/dL Critically high 74-106 T [facility] Comment on above: Performed By: #### C MP ####[facility] Haiiztpeyd029[address] [place], [place] [address]Dr. Shahbaz Rogel Potassium [Moles/Vol] 4.1 mmol/L Normal 3.4-5.0 [facility] Comment on above: Performed By: #### C MP ####[facility] Tohpcozbpl4710[address] [place], [place] [address]Dr. Shahbaz Rogel Protein [Mass/Vol] 6.4 g/dL Normal 6.1-8.2 [facility] Comment on above: Performed By: #### C MP ####[facility] Vwxhexwvni174271 [address] [place], [place] [address]Dr. Shahbaz Rogel Sodium [Moles/Vol] 140 mmol/L Normal 137-145 [facility] Comment on above: Performed By: #### C MP ####[facility] Xncprxcfwc1733[address] [place], [place] [address]Dr. Shahbaz Rogel Urea nitrogen [Mass/Vol] 26.0 mg/dL Critically high 7.0-18.0 [facility] Comment on above: Performed By: #### C MP ####[facility] Layabjssxp9434[address] [place], [place] [address]Dr. Shahbaz Rogel Urea nitrogen/Creatinine [Mass ratio] 26.5 mg/mg Normal [facility] Comment on above: Performed By: #### C MP ####[facility] Oqprzhgbpg305[address] [place], [place] [address]Dr. Shahbaz Rogel BNPon 01-19-2022 Natriuretic peptide B (Bld) [Mass/Vol] 117.0 pg/mL Normal <=900.0 [facility] Comment on above: Performed By: #### B SEE SUPERVISOR, CMP ####[facility] Wvitboktai85[address] [place] [address]Dr. Shahbaz Rogel CBC AUTO DIFFon 01-19-2022 BASO # 0.0 103/ul Normal 0.0-0.1 [facility] Comment on above: Performed By: #### C BC ####[facility] Krcubglrio200[address] [place], [place] [address]Dr. Shahbaz Rogel Basophils/100 WBC (Bld) 0.0 % Critically low 0.2-2.0 [facility] Comment on above: Performed By: #### C BC ####[facility] Pxwqukkoqw696[address] [place], [place] [address]Dr. Shahbaz Rogel EO # 0.0 103/ul Normal 0.0-0.7 [facility] Comment on above: Performed By: #### C BC ####[facility] Pepzelyrcr015[address] [place], [place] [address]Dr. Shahbaz Juan F Eosinophils/100 WBC (Bld) 0.0 % Critically low 0.9-7.0 [facility] Comment on above: Performed By: #### C BC ####[facility] Mygrbyydkn6837[address] [place], [place] [address]Dr. Shahbaz Rogel Erythrocyte distribution width (RBC) [Ratio] 13.4 % Normal 11.0-15.0 [facility] Comment on above: Performed By: #### C BC ####[facility] Wudckhuito445[address] [place], [place] [address]Dr. Shahbaz Rogel Hematocrit (Bld) [Volume fraction] 46.3 % Normal 36.0-48.0 [facility] Comment on above: Performed By: #### C BC ####[facility] Scpzwrvqkg004[address] [place], [place] [address]Dr. Shahbaz Rogel Hemoglobin (Bld) [Mass/Vol] 14.3 g/dL Normal 12.0-16.0 [facility] Comment on above: Performed By: #### C BC ####[facility] Bbiwudcykn8424[address] [place], [place] [address]Dr. Lilajarrod Rogel IG # 0.00 10e3/ul Normal 0.00-0.03 [facility] Comment on above: Performed By: #### C BC ####[facility] Nbeocxqytw5642 [place] [id number]. Shahbaz Rogel IG % 0.0 % Normal 0.0-0.5 [facility] Comment on above: Performed By: #### C BC ####[facility] Ipltiphial1565 [place] [phone]. Shahbaz Rogel LYMPH # 0.6 103/ul Critically low 1.2-3.8 [facility] Comment on above: Performed By: #### C BC ####[facility] Zmdoocpzxm2935 [place] [phone]. Shahbaz Rogel Lymphocytes/100 WBC (Bld) 14.2 % Critically low 20.5-60.0 [facility] Comment on above: Performed By: #### C BC ####[facility] Qnpnypufzr58[address] [place] [address]Dr. Shahbaz Rogel MANUAL DIFF REQ NO Normal [facility] Comment on above: Performed By: #### C BC ####[facility] Lczcegnlnd5286 [place] [phone]. Shahbaz Rogel MCH (RBC) [Entitic mass] 27.7 pg Normal 26.7-34.0 [facility] Comment on above: Performed By: #### C BC ####[facility] Ufkjbnysja1033 [place] [phone]. Shahbaz Rogel MCHC (RBC) [Mass/Vol] 30.9 g/dL Normal 29.9-35.2 [facility] Comment on above: Performed By: #### C BC ####[facility] Jvsczvlvvc5464 [place] [phone]. Shahbaz Rogel MCV (RBC) [Entitic vol] 89.6 fL Normal 81.0-99.0 [facility] Comment on above: Performed By: #### C BC ####[facility] Sylayfbuni2991 [place] [phone]. Shahbaz Rogel MONO # 0.0 103/ul Critically low 0.3-0.8 [facility] Comment on above: Performed By: #### C BC ####[facility] Rtadqlfrof4322 [place] [phone]. Shahbaz Rogel Monocytes/100 WBC (Bld) 1.0 % Critically low 1.7-12.0 [facility] Comment on above: Performed By: #### C BC ####[facility] Lwmosxtlax0225 [place] [phone]. Shahbaz Rogel NEUT # 3.5 103/ul Normal 1.4-6.5 [facility] Comment on above: Performed By: #### C BC ####[facility] Hicamyjhjn99[address] [place] [address]Dr. Shahbaz Rogel Neutrophils/100 WBC (Bld) 84.8 % Critically high 43.0-75.0 [facility] Comment on above: Performed By: #### C BC ####[facility] Esxcjwoppm5458 [place] [address]Dr. Shahbaz Rogel Platelet mean volume (Bld) [Entitic vol] 9.8 fL Normal 9.5-13.5 [facility] Comment on above: Performed By: #### C BC ####[facility] Lqivcykduy618[address] [place], [place] [address]Dr. Shahbaz Rogel PLT 185 103/ul Normal 150-450 [facility] Comment on above: Performed By: #### C BC ####[facility] Raemikvytp8974 [place] [phone]. Shahbaz Rogel RBC 5.17 106/ul Normal 4.20-5.40 [facility] [facility] Comment on above: Performed By: #### C BC ####[facility] Dbnxmbitjl[address] [place], [place] [address]Dr. Shahbaz Rogel WBC 4.2 103/ul Normal 4.0-11.0 [facility] Comment on above: Performed By: #### C BC ####[facility] Pakpfecqoz[address] [place], [place] [address]Dr. Shahbaz Rogel LACTATE/LACTIC ACIDon 2021 Lactate [Moles/Vol] 1.7 mmol/L Normal 0.7-2.0 [facility] Comment on above: Performed By: #### L ACT ####[facility] R[address]bfq[address] [place] [address]Dr. Shahbaz Rogel POINT OF CARE GLUCOSEon 01-01 Glucose [Mass/Vol] 173 mg/dL Critically high 74-106 [facility] Comment on above: Performed By: #### P OCGLUC ####[facility] Zwnytqdvph[address] [place] [address]Dr. Shahbaz Rogel Glucose [Mass/Vol] 181 mg/dL Critically high 74-106 [facility] Comment on above: Performed By: #### P OCGLUC ####[facility] Doaqumqmkx[address] [place] [address]Dr. Shahbaz Rogel Glucose [Mass/Vol] 154 mg/dL Critically high -106 [facility] Comment on above: Performed By: #### P OCGLUC ####[facility] Wblwrilufq[address] [place], [place] [address]Dr. Shahbaz Rogel PROF 14(COMP METB)on 022 Albumin [Mass/Vol] 3.5 g/dL Normal 3.4-5.0 [facility] Comment on above: Performed By: #### B SEE SUPERVISOR, CMP ####[facility] Zrokgdsaii[address] [place], [place] [address]Dr. Shahbaz Rogel Albumin/Globulin [Mass ratio] 0.9 {ratio} Normal [facility] Comment on above: Performed By: #### B SEE SUPERVISOR, CMP ####[facility] Bpfykfujkk26[address] [place], [place] [address]Dr. Shahbaz Rogel ALP [Catalytic activity/Vol] 107 U/L Normal 46-116 [facility] Comment on above: Performed By: #### B SEE SUPERVISOR, CMP ####[facility] Dcgotmjkxk8[address] [place] [address]Dr. Shahbaz Rogel ALT [Catalytic activity/Vol] 18 U/L Normal 14-59 [facility] Comment on above: Performed By: #### B SEE SUPERVISOR, CMP ####[facility] Gueworzqlh[address] [place] [address]Dr. Shahbaz Rogel Anion gap [Moles/Vol] 14.1 mmol/L Normal [facility] Comment on above: Performed By: #### B SEE SUPERVISOR, CMP ####[facility] Odrfcqeibh119[address] [place] [address]Dr. Shahbaz Rogel AST [Catalytic activity/Vol] 19 U/L Normal 15-37 [facility] Comment on above: Performed By: #### B SEE SUPERVISOR, CMP ####[facility] Hzfldokiax638[address] [place], [place] [address]Dr. Shahbaz Juan F Bilirubin [Mass/Vol] 0.5 mg/dL Normal 0.2-1.3 [facility] Comment on above: Performed By: #### B SEE SUPERVISOR, CMP ####[facility] Ghfhubjiur430[address] [place], [place] [address]Dr. Shahbaz Rogel Calcium [Mass/Vol] 8.5 mg/dL Normal 8.5-10.1 [facility] Comment on above: Performed By: #### B SEE SUPERVISOR, CMP ####[facility] Tsmlmaqcev01[address] [place], [place] [address]Dr. Shahbaz Rogel Chloride [Moles/Vol] 103 mmol/L Normal 98-107 [facility] Comment on above: Performed By: #### B SEE SUPERVISOR, CMP ####[facility] Uzjdqtzakl179[address] [place], [place] [address]Dr. Shahbaz Juan F CO2 [Moles/Vol] 25.4 mmol/L Normal 22.0-30.0 [facility] Comment on above: Performed By: #### B SEE SUPERVISOR, CMP ####[facility] Jwagcucshv[address] [place], [place] [address]Dr. Lilajarrod Juan F Creatinine [Mass/Vol] 1.48 mg/dL Critically high 0.52-1.04 [facility] Comment on above: Performed By: #### B SEE SUPERVISOR, CMP ####[facility] Jvbphyowsh[address] [place], [place] [address]Dr. Lilajarrod Juan F EGFR-AF PUERTO RICAN 44 mL/min/1.73m2 Critically low >=60 [facility] Comment on above: Performed By: #### B SEE SUPERVISOR, CMP ####[facility] Vygdzdloey[address] [place], [place] [address]Dr. Shahbaz Rogel EGFR-NON AF PUERTO RICAN 36 mL/min/1.73m2 Critically low >=60 [facility] Comment on above: Performed By: #### B SEE SUPERVISOR, CMP ####[facility] Sditlibgbd[address] [place], [place] [address]Dr. Shahbaz Rogel Globulin (S) [Mass/Vol] 3.7 g/dL Normal [facility] Comment on above: Performed By: #### B SEE SUPERVISOR, CMP ####[facility] Mqpyixeyiz480[address] [place], [place] [address]Dr. Shahbaz Rogel Glucose [Mass/Vol] 203 mg/dL Critically high 74-106 [facility] Comment on above: Performed By: #### B SEE SUPERVISOR, CMP ####[facility] Kvqbkbjeni758[address] [place], [place] [address]Dr. Shahbaz Rogel Potassium [Moles/Vol] 3.5 mmol/L Normal 3.4-5.0 [facility] Comment on above: Performed By: #### B SEE SUPERVISOR, CMP ####[facility] Fdureknsiw8524[address] [place], [place] [address]Dr. Shahbaz Rogel Protein [Mass/Vol] 7.2 g/dL Normal 6.1-8.2 [facility] Comment on above: Performed By: #### B SEE SUPERVISOR, CMP ####[facility] Pysqnilqph524[address] [place], [place] [address]Dr. Shahbaz Rogel Sodium [Moles/Vol] 139 mmol/L Normal 137-145 [facility] Comment on above: Performed By: #### B SEE SUPERVISOR, CMP ####[facility] Ljcazstvxc389[address] [place], [place] [address]Dr. Shahbaz Rogel Urea nitrogen [Mass/Vol] 17.0 mg/dL Normal 7.0-18.0 [facility] Comment on above: Performed By: #### B SEE SUPERVISOR, CMP ####[facility] Afpoxyxuvv407[address] [place], [place] [address]Dr. Shahbaz Rogel Urea nitrogen/Creatinine [Mass ratio] 11.5 mg/mg Normal [facility] Comment on above: Performed By: #### B SEE SUPERVISOR, CMP ####[facility] Dpiiotyltn8[address] [place] [address]Dr. Shahbaz Rogel BNPon 01-18-2022 Natriuretic peptide B (Bld) [Mass/Vol] 55.0 pg/mL Normal <=900.0 [facility] Comment on above: Performed By: #### C MP, BNP, HSTROPN ####[facility] Sqrktqlpvh[address] [place], [place] [address]Dr. Shahbaz Rogel CBC W MANUAL DIFFon 01-19-20 22 ATYPICAL LYMPH # 0.12 103/ul Normal [facility] Comment on above: Performed By: #### C CAIN ####[facility] Airxrysqcl396[address] [place], [place] [address]Dr. Shahbaz Rogel ATYPICAL LYMPH % 2 % Normal [facility] Comment on above: Performed By: #### C CAIN ####[facility] Xphctksgal39[address] [place], [place] [address]Dr. Shahbaz Rogel BAND # 0.0 103/ul Normal 0.0-0.3 [facility] Comment on above: Performed By: #### C CAIN ####[facility] Qxogakpbwr265[address] [place], [place] [address]Dr. Shahbaz Rogel BAND % 0 % Normal 0-5 [facility] Comment on above: Performed By: #### C CAIN ####[facility] Hzssinjcxz7827[address] [place], [place] [address]Dr. Shahbaz Rogel BASOM # 0.00 103/ul Normal 0.00-0.10 [facility] Comment on above: Performed By: #### C CAIN ####[facility] Lazpqadcwh[address] [place], [place] [address]Dr. Shahbaz Rogel BASOM % 0.0 % Critically low 0.2-2.0 [facility] Comment on above: Performed By: #### C BCMAN ####[facility] Voqcafvkik[address] [place], [place] [address]Dr. Yilan Rogel BLAST # Normal [facility] Comment on above: Performed By: #### C CAIN ####[facility] Jmkvcvnqld47[address] [place], [place] [address]Dr. Yilan Rogel BLAST % Normal [facility] Comment on above: Performed By: #### C CAIN ####[facility] V[address]wjpwzky[address] [place] [phone]. Shahbaz Rogel CORRECTED WBC Normal 4.0-11.0 [facility] Comment on above: Performed By: #### C CAIN ####[facility] Jgbpjxaarn16[address] [place] [phone]. Shahbaz Rogel EOS # 0.25 103/ul Normal 0.00-0.70 [facility] Comment on above: Performed By: #### C CAIN ####[facility] Pjfzraxdoa58[address] [place] [phone]. Shahbaz Rogel EOS% 4.0 % Normal 0.9-7.0 [facility] Comment on above: Performed By: #### C CAIN ####[facility] Kadid[address]ryee[address] [place] [address]Dr. Shahbaz Rogel HCT 46.8 % Normal 36.0-48.0 [facility] Comment on above: Performed By: #### C CAIN ####[facility] Lsamcmkoof15[address] [place] [phone]. Shahbaz Rogel HGB 14.9 g/dl Normal 12.0-16.0 [facility] Comment on above: Performed By: #### C CANI ####[facility] [address]usr[address] [place] [phone]. Shahbaz Rogel LYMPHM # 0.68 103/ul Critically low 1.20-3.80 [facility] Comment on above: Performed By: #### C CAIN ####[facility] Icieslripq[address] [place] [phone]. Shahbaz Rogel LYMPHM% 11.0 % Critically low 20.5-60.0 [facility] Comment on above: Performed By: #### C CAIN ####[facility] Udqtayzynx7[address] [place] [phone]. Shahabz Rogel MCH 27.6 pg Normal 26.7-34.0 [facility] Comment on above: Performed By: #### C CAIN ####[facility] [address]km[address] [place], [place] [address]Gr. Shahbaz Rogel MCHC 31.8 g/dl Normal 29.9-35.2 [facility] Comment on above: Performed By: #### C CAIN ####[facility] Bixdzeskbg[address] [place] [phone]. Shahbaz Rogel MCV 86.8 fL Normal 81.0-99.0 [facility] Comment on above: Performed By: #### C CAIN ####[facility] Fyajpherhm[address] [place] [phone]. Shahbaz Rogel METAMYELOCYTE # Normal [facility] Comment on above: Performed By: #### C CAIN ####[facility] Sqithfkazf[address] [place] [phone]. Shahbaz Rogel METAMYELOCYTE % Normal [facility] Comment on above: Performed By: #### C CAIN ####[facility] Efegudrjsz18[address] [place] [phone]. Shahbaz Rogel MONOM# 0.19 103/ul Critically low 0.30-0.80 [facility] Comment on above: Performed By: #### C CAIN ####[facility] Qxssldikpx29[address] [place] [phone]. Shahbaz Rogel MONOM% 3.0 % Normal 1.7-12.0 [facility] Comment on above: Performed By: #### C CAIN ####[facility] Tysbcprkbh[address] [place] [phone]. Shahbaz Rogel MPV 9.6 fL Normal 9.5-13.5 [facility] Comment on above: Performed By: #### C CAIN ####[facility] Vykogqalcd64[address] [place] [phone]. Shahbaz Rogel MYELOCYTE # Normal [facility] Comment on above: Performed By: #### C CAIN ####[facility] Svqcuazhry94[address] [place] [phone]. Shahbaz Rogel MYELOCYTE % Normal [facility] Comment on above: Performed By: #### C CAIN ####[facility] Ynwfpjbwik1596 [place] [phone]. Shahbaz Rogel NRBC Normal [facility] Comment on above: Performed By: #### C CAIN ####[facility] Olxspwglsv9537 [place] [phone]. Shahbaz Rogel PLT 203 103/ul Normal 150-450 [facility] Comment on above: Performed By: #### C CAIN ####[facility] Kppytpvmca4582 [place] [phone]. Shahbaz Rogel RBC 5.39 106/ul Normal 4.20-5.40 [facility] Comment on above: Performed By: #### C CAIN ####[facility] Wakdrofoye[address] [place], [place] [address]Dr. Shahbaz Rogel RDW 13.7 % Normal 11.0-15.0 [facility] Comment on above: Performed By: #### C CAIN ####[facility] Ydciazhbxl[address] [place], [place] [address]Dr. Shahbaz Rogel SEG # 4.96 103/ul Normal 1.40-6.50 [facility] Comment on above: Performed By: #### C CAIN ####[facility] Nnanxfvoxz[address] [place], [place] [address]Dr. Shahbaz Rogel SEG % 80.0 % Critically high 43.0-75.0 [facility] Comment on above: Performed By: #### C CAIN ####[facility] Rjcopuchgs2215 [place] [phone]. Shahbaz Rogel WBC 6.2 103/ul Normal 4.0-11.0 [facility] Comment on above: Performed By: #### C CAIN ####[facility] Dlwxdcoyzr34[address] [place] [phone]. Shahbaz Rogel CULTURE BLOODon 01-18-2022 Microscopic examination of blood, culture Culture Observations: No growth at 5 days. Normal [facility] Comment on above: Performed By: #### B LDCX2 ####[facility] Stoypelxlq5[address] [place] [phone]. Shahbaz Rogel Microscopic examination of blood, culture Culture Observations: No growth at 5 days Normal [facility] Comment on above: Performed By: #### B LDCX1 ####[facility] Dppwayzndx4539 [place] [phone]. Shahbaz Juan F Covid-19 PCR ([facility])on 12-31 SARS-CoV-2 (COVID-19) RNA PAVAN+probe Ql (Unsp spec) Not detected Normal NOT DETECTED [facility] Comment on above: Result Comment: This test is not yet approved or cleared by the [place] FDA. When there are no FDA-approved or cleared tests available, and other criteria are met, FDA can make tests available under an emergency access mechanism called an Emergency Use Authorization (EUA). The EUA for this test is supported by the [employer] of Health and Human Service's (HHS's) [...] with SARS-CoV-2. Performed By: #### C VDTBH ####[facility] Nbuoyfghmd9387 [place] [phone]. Shahbaz Juan F D-DIMERon 01-18-2022 D-DIMER 0.29 mg/L FEU Normal 0.19-0.50 [facility] Comment on above: Performed By: #### D DIM ####[facility] V[address]uzetdd40[address] [place], [place] [address]Ku. Lilajarrod Rogel D-DIMER COMMENTS SEE BELOW Normal [facility] Comment on above: Result Comment: Incr [...] generalized hospitalization. Performed By: #### D DIM ####[facility] Tltwfrxatn[address] [place], [place] [address]Dr. Shahbaz Rogel INFLUENZA A AND B AGon 01-18 INFLUANEGH SEE BELOW Normal [facility] Comment on above: Result Comment: Nega tive for Flu A protein angiten. Infection due to Flu A cannot be ruled out. Flu A angiten in the sample may be below the detection limit of the test. Performed By: #### I NFLUAB ####[facility] Egpskmbakx99[address] [place], [place] [address]Dr. Shahbaz Rogel INFLUBNEGH SEE BELOW Normal [facility] Comment on above: Result Comment: Nega tive for Flu B protein antigen. Infection due to Flu B cannot be ruled out. Flu B antigen in the sample may be below the detection limit of the test. Performed By: #### I NFLUAB ####[facility] Bkeywyhsjy12[address] [place], [place] [address]Dr. Shahbaz [facility] INFLUENZA A AG Negative Normal NEGATIVE SEE COMMENT [facility] Comment on above: Performed By: #### I NFLUAB ####[facility] Rduauynasc64[address] [place], [place] [address]Dr. Shahbaz Rogel INFLUENZA B AG Negative Normal NEGATIVE SEE COMMENT [facility] Comment on above: Performed By: #### I NFLUAB ####[facility] Bwrrpbtdem829[address] [place], [place] [address]Dr. Shahbaz Rogel INTERNAL CONTROLS Within Normal Limits Normal Wi thin Normal Limits [facility] Comment on above: Performed By: #### I NFLUAB ####[facility] Uafbjiroku[address] [place], [place] [address]Dr. Shahbaz Juan F LACTATE/LACTIC ACIDon 2021 Lactate [Moles/Vol] 1.0 mmol/L Normal 0.7-2.0 [facility] Comment on above: Performed By: #### L ACT ####[facility] Ldzeaahxrp89[address] [place], [place] [address]Dr. Shahbaz Rogel PROF 14(COMP METB)on 022 Albumin [Mass/Vol] 3.8 g/dL Normal 3.4-5.0 [facility] Comment on above: Performed By: #### C MP, BNP, HSTROPN ####[facility] Sxyplhzaqe79[address] [place] [address]Dr. Shahbaz Rogel Albumin/Globulin [Mass ratio] 1.0 {ratio} Normal [facility] Comment on above: Performed By: #### C MP, BNP, HSTROPN ####[facility] Klnzosayls9468[address] [place], [place] [address]Dr. Shahbaz Rogel ALP [Catalytic activity/Vol] 116 U/L Normal 46-116 [facility] Comment on above: Performed By: #### C MP, BNP, HSTROPN ####[facility] Menqjctaws8988[address] [place], [place] [address]Dr. Shahbaz Rogel ALT [Catalytic activity/Vol] 16 U/L Normal 14-59 [facility] Comment on above: Performed By: #### C MP, BNP, HSTROPN ####[facility] Vrfkwhrssw[address] [place], [place] [address]Dr. Shahbaz Rogel Anion gap [Moles/Vol] 9.4 mmol/L Normal [facility] Comment on above: Performed By: #### C MP, BNP, HSTROPN ####[facility] Azlpvcbheg779[address] [place], [place] [address]Dr. Shahbaz Rogel AST [Catalytic activity/Vol] 19 U/L Normal 15-37 [facility] Comment on above: Performed By: #### C MP, BNP, HSTROPN ####[facility] Rklyxwegcj176[address] [place], [place] [address]Dr. Shahbaz Rogel Bilirubin [Mass/Vol] 0.5 mg/dL Normal 0.2-1.3 [facility] Comment on above: Performed By: #### C MP, BNP, HSTROPN ####[facility] Tmdghuilzp[address] [place], [place] [address]Dr. Shahbaz Rogel Calcium [Mass/Vol] 8.9 mg/dL Normal 8.5-10.1 [facility] Comment on above: Performed By: #### C MP, BNP, HSTROPN ####[facility] Itxyjngxoo15[address] [place] [address]Dr. Shahbaz Rogel Chloride [Moles/Vol] 104 mmol/L Normal 98-107 [facility] Comment on above: Performed By: #### C MP, BNP, HSTROPN ####[facility] Pukqzxnlul[address] [place], [place] [address]Dr. Shahbaz Rogel CO2 [Moles/Vol] 27.2 mmol/L Normal 22.0-30.0 [facility] Comment on above: Performed By: #### C MP, BNP, HSTROPN ####[facility] Fdybtsflau[address] [place], [place] [address]Dr. Shahbaz Rogel Creatinine [Mass/Vol] 0.99 mg/dL Normal 0.52-1.04 [facility] Comment on above: Performed By: #### C MP, BNP, HSTROPN ####[facility] Oeomjfdefr[address] [place], [place] [address]Dr. Shahbaz Rogel EGFR-AF PUERTO RICAN >60 Normal >=60 [facility] Comment on above: Performed By: #### C MP, BNP, HSTROPN ####[facility] Fxjxpowyuw64[address] [place], [place] [address]Dr. Shahbaz Rogel EGFR-NON AF PUERTO RICAN 58 mL/min/1.73m2 Critically low >=60 [facility] Comment on above: Performed By: #### C MP, BNP, HSTROPN ####[facility] Tgabqxhvzv[address] [place], [place] [address]Dr. Shahbaz Rogel Globulin (S) [Mass/Vol] 3.8 g/dL Normal [facility] Comment on above: Performed By: #### C MP, BNP, HSTROPN ####[facility] Zwnrcpaxyu[address] [place] [address]Dr. Shahbaz Rogel Glucose [Mass/Vol] 104 mg/dL Normal 74-106 [facility] Comment on above: Performed By: #### C MP, BNP, HSTROPN ####[facility] Mzoythdnrd4[address] [place] [address]Dr. Shahbaz Rogel Potassium [Moles/Vol] 3.6 mmol/L Normal 3.4-5.0 [facility] Comment on above: Performed By: #### C MP, BNP, HSTROPN ####[facility] Wwftanbpnp9[address] [place] [address]Dr. Shahbaz Rogel Protein [Mass/Vol] 7.6 g/dL Normal 6.1-8.2 [facility] Comment on above: Performed By: #### C MP, BNP, HSTROPN ####[facility] Ohjnopimvp[address] [place], [place] [address]Dr. Shahbaz Rogel Sodium [Moles/Vol] 137 mmol/L Normal 137-145 [facility] Comment on above: Performed By: #### C MP, BNP, HSTROPN ####[facility] Wxfhzeiyke32[address] [place], [place] [address]Dr. Shahbaz Rogel Urea nitrogen [Mass/Vol] 9.0 mg/dL Normal 7.0-18.0 [facility] Comment on above: Performed By: #### C MP, BNP, HSTROPN ####[facility] Hxgedwtgkg07[address] [place], [place] [address]Dr. Shahbaz Rogel Urea nitrogen/Creatinine [Mass ratio] 9.1 mg/mg Normal [facility] Comment on above: Performed By: #### C MP, BNP, HSTROPN ####[facility] Aoziyxuqss[address] [place], [place] [address]Dr. Shahbaz Rogel TROPONIN, HIGH SENSITIVITYon 01-18-2022 HSTROP 6.4 pg/mL Normal 4.0-35.5 [facility] Comment on above: Result Comment: CUT- OFF POINTS HAVE BEEN ESTABLISHED BASED ON THE FOURTH UNIVERSAL DEFINITIONS OF MYOCARDIALINFARCTION. THE UPPER REFERENCE LIMIT (URL) OF TROPONIN, DEFINED THE 99TH PERCENTILE OFcTnI DISTRIBUTION IN A REFERENCE POPULATION, HAS BEEN CONFIRMED THE DECISION THRESHOLDFOR VT DIAGNOSIS. Performed By: #### C MP, BNP, HSTROPN ####[facility] By[address]fvmj37[address] [place], [place] [address]Jq. Shahabz Rogel XR CHEST 2 Von 01-18-2022 XR CHEST 2 V Normal [facility] URINALYSIS REFLEXon 04-04-20 Appearance (U) CLEAR Normal CLEAR [facility] Comment on above: Order Comment: No: D o not add to previous draw Performed By: #### 1 0070, 59987, 28893, 17540, 50884, 26893 #### [facility] [address] [place] [address], [place] Bilirubin [Mass/Vol] Negative Normal NEGATIVE [facility] Comment on above: Order Comment: No: D o not add to previous draw Performed By: #### 1 0070, 99188, 90939, 16637, 94527, 58349 #### [facility] [address] [place] [address], [place] BLOOD Negative Normal NEGATIVE [facility] Comment on above: Order Comment: No: D o not add to previous draw Performed By: #### 1 0070, 88200, 00478, 61248, 76925, 78011 #### [facility] [address] [place] [address], [place] Color (U) YELLOW Normal YELLOW [facility] Comment on above: Order Comment: No: D o not add to previous draw Performed By: #### 1 0070, 39637, 26435, 18801, 66760, 78519 #### [facility] [address] [place] [address], [place] Glucose [Mass/Vol] Negative Normal NEGATIVE [facility] Comment on above: Order Comment: No: D o not add to previous draw Performed By: #### 1 0070, 39564, 25715, 02683, 72630, 88805 #### [facility] [address] [place] [address], [place] KETONE Negative Normal NEGATIVE [facility] Comment on above: Order Comment: No: D o not add to previous draw Performed By: #### 1 0070, 87917, 68761, 94996, 19052, 65455 #### [facility] [address] [place] [address], [facility] [place]UK ELIU Negative Normal NEGATIVE [facility] Comment on above: Order Comment: No: D o not add to previous draw Performed By: #### 1 0070, 08137, 59409, 00127, 79301, 18881 #### [facility] [address] [place] [address], [facility] MICRO NOT DONE Normal [facility] Comment on above: Order Comment: No: D o not add to previous draw Result Comment: Micr oscopics not performed on urines with negative chemical reactions unless requested in original order Performed By: #### 1 0070, 90544, 68559, 97055, 85078, 37285 #### [facility] [address] [facility] [place] [address], [facility] Nitrite Ql (U) Negative Normal NEGATIVE [facility] Comment on above: Order Comment: No: D o not add to previous draw Performed By: #### 1 0070, 99841, 87092, 49572, 53880, 79238 #### [facility] [address] [facility] [place] [address], [facility] pH (Bld) 5.0 Normal 5.0-8.0 [facility] Comment on above: Order Comment: No: D o not add to previous draw Performed By: #### 1 0070, 54783, 73897, 08078, 93608, 08539 #### [facility] [address] [facility] [place] [address], [facility] Protein (U) [Mass/Vol] Negative Normal NEGATIVE [facility] Comment on above: Order Comment: No: D o not add to previous draw Performed By: #### 1 0070, 97062, 74631, 78713, 96953, 16057 #### [facility] [address] [facility] [place] [address], [facility] SPEC GRAV 1.012 Low 1.015-1.02 0 [facility] Comment on above: Order Comment: No: D o not add to previous draw Performed By: #### 1 0070, 23502, 43757, 50119, 18658, 29388 #### [facility] [address] [place] [address], [facility] BASIC METABOLIC PANELon 07-0 -2019 Calcium [Mass/Vol] 8.4 mg/dL Low 8.6-10.3 The [facility] Comment on above: Order Comment: No: D o not add to previous draw Performed By: #### 1 0070, 99894, 67401, 22169, 15176, 38246 #### [facility] [address] [place] [address], [facility] Chloride [Moles/Vol] 101 mmol/L Normal 98-107 [facility] Comment on above: Order Comment: No: D o not add to previous draw Performed By: #### 1 0070, 48273, 35445, 87816, 90080, 44540 #### [facility] [address] [place] [address], [facility] CO2 [Moles/Vol] 29 mmol/L Normal 21-31 [facility] Comment on above: Order Comment: No: D o not add to previous draw Performed By: #### 1 0070, 22652, 44391, 25415, 16838, 78770 #### [facility] [address] [place] [address], [facility] Creatinine [Mass/Vol] 0.79 mg/dL Normal 0.60-1.20 [facility] Comment on above: Order Comment: No: D o not add to previous draw Performed By: #### 1 0070, 99908, 50768, 80031, 99568, 59585 #### [facility] [address] [place] [address], [place] GFR/1.73 sq M predicted among blacks MDRD (S/P/Bld) [Vol rate/Area] mL/min/{1.73_m2} Normal >60 [facility] Comment on above: Order Comment: No: D o not add to previous draw Performed By: #### 1 0070, 57079, 88542, 08566, 79091, 70032 #### [facility] [address] [place] [address], [facility] GFR/1.73 sq M predicted among non-blacks MDRD (S/P/Bld) [Vol rate/Area] mL/min/{1.73_m2} Normal >60 [facility] Comment on above: Order Comment: No: D o not add to previous draw Performed By: #### 1 0070, 57822, 98992, 87272, 73221, 05455 #### [facility] [address] [place] [address], [place] Glucose [Mass/Vol] 91 mg/dL Normal 70-100 [facility] Comment on above: Order Comment: No: D o not add to previous draw Performed By: #### 1 0070, 36649, 67750, 94959, 55123, 89477 #### [facility] [address] [place] [address], [place] Potassium [Moles/Vol] 3.9 mmol/L Normal 3.5-5.1 [facility] Comment on above: Order Comment: No: D o not add to previous draw Performed By: #### 1 0070, 60363, 67845, 77043, 70604, 30125 #### [facility] [address] [place] [address], [place] Sodium [Moles/Vol] 133 mmol/L Low 136-145 [facility] Comment on above: Order Comment: No: D o not add to previous draw Performed By: #### 1 0070, 25937, 81941, 38256, 81154, 49164 #### [facility] [address] Urea nitrogen [Mass/Vol] 10 mg/dL Normal 7-25 [facility] Comment on above: Order Comment: No: D o not add to previous draw Performed By: #### 1 0070, 85236, 71261, 06226, 91119, 00609 #### [facility] [address] [facility] [place] [address], [facility] CBC W/DIFFon 04-02-2020 ABS BASOPHILS 0.0 10*3/uL Normal 0.0-0.2 [facility] Comment on above: Order Comment: No: D o not add to previous draw Performed By: #### 1 0070, 63892, 05650, 19197, 48065, 17794 #### [facility] [address] [facility]. [address] ABS IMM GRANS 0.0 10*3/uL Normal 0.0-0.2 [facility] Comment on above: Order Comment: No: D o not add to previous draw Performed By: #### 1 0070, 05231, 22408, 11886, 08343, 49112 #### [facility] [address] [facility] [place] [address], [facility] ABS NEUTROPHILS 4.5 10*3/uL Normal 1.6-7.6 [facility] Comment on above: Order Comment: No: D o not add to previous draw Performed By: #### 1 0070, 83180, 54650, 34635, 75726, 03465 #### [facility] [address] [facility] [place] [address], [facility] Basophils/100 WBC (Bld) 0.2 % Normal 0.0-1.0 [facility] Comment on above: Order Comment: No: D o not add to previous draw Performed By: #### 1 0070, 13158, 77554, 92387, 32840, 64537 #### [facility] [address] [facility] [place] [address], [place] Eosinophils (Bld) [#/Vol] 0.2 10*3/uL Normal 0.0-0.5 [facility] Comment on above: Order Comment: No: D o not add to previous draw Performed By: #### 1 0070, 61889, 37861, 52935, 56139, 76349 #### [facility] [address] [place] [address], [facility] Eosinophils/100 WBC (Bld) 3.6 % Normal 0.0-6.0 [facility] Comment on above: Order Comment: No: D o not add to previous draw Performed By: #### 1 0070, 80622, 35916, 15403, 52189, 71458 #### [facility] [address] [facility] [address] Erythrocyte distribution width (RBC) [Ratio] 12.7 % Normal 11.5-15.0 [facility] Comment on above: Order Comment: No: D o not add to previous draw Performed By: #### 1 0070, 13006, 67744, 45739, 93547, 60680 #### [facility] [address] [facility] [address] Hematocrit (Bld) [Volume fraction] 42.9 % Normal 36.0-45.0 [facility] Comment on above: Order Comment: No: D o not add to previous draw Performed By: #### 1 0070, 27594, 48489, 20590, 14102, 15485 #### [facility] [address] [place] [address], [facility] Hemoglobin (Bld) [Mass/Vol] 13.5 g/dL Normal 12.0-15.0 [facility] Comment on above: Order Comment: No: D o not add to previous draw Performed By: #### 1 0070, 35672, 57129, 81161, 62418, 64968 #### [facility] [address] [place] [address], [facility] IMMATURE GRANS 0.3 % Normal 0.0-1.0 [facility] Comment on above: Order Comment: No: D o not add to previous draw Performed By: #### 1 0070, 84905, 65558, 32877, 26899, 38783 #### [facility] [address] [place] [address], [facility] Lymphocytes (Bld) [#/Vol] 1.1 10*3/uL Low 1.2-4.0 [facility] Comment on above: Order Comment: No: D o not add to previous draw Performed By: #### 1 0070, 66908, 13734, 77426, 13396, 50975 #### [facility] [address] [place] [address], [facility] Lymphocytes/100 WBC (Bld) 18.0 % Low 20.0-45.0 [facility] Comment on above: Order Comment: No: D o not add to previous draw Performed By: #### 1 0070, 94419, 50596, 69282, 84180, 28499 #### [facility] [address] [facility] [place] [address], [facility] MCH (RBC) [Entitic mass] 27.4 pg Normal 27.0-33.0 [facility] Comment on above: Order Comment: No: D o not add to previous draw Performed By: #### 1 0070, 30556, 08050, 11624, 45291, 44201 #### [facility] [address] [facility] [place] [address], [facility] MCHC (RBC) [Mass/Vol] 31.5 g/dL Low 32.0-35.0 [facility] Comment on above: Order Comment: No: D o not add to previous draw Performed By: #### 1 0070, 05315, 99381, 89147, 14518, 02493 #### [facility] [address] [place] [address], [facility] MCV (RBC) [Entitic vol] 87.0 fL Normal 82.0-98.0 [facility] Comment on above: Order Comment: No: D o not add to previous draw Performed By: #### 1 0070, 61286, 40629, 07032, 93778, 96285 #### [facility] [address] [place] [address], [facility] Monocytes (Bld) [#/Vol] 0.3 10*3/uL Normal 0.1-1.0 [facility] Comment on above: Order Comment: No: D o not add to previous draw Performed By: #### 1 0070, 89118, 13182, 49442, 28422, 39137 #### [facility] [address] [facility] [place] [address], [facility] MONOS 5.5 % Normal 5.0-12.0 [facility] Comment on above: Order Comment: No: D o not add to previous draw Performed By: #### 1 0070, 08771, 66972, 65667, 08101, 98157 #### [facility] [address] [facility] [place] [address], [facility] Neutrophils/100 WBC (Bld) 72.4 % High 40.0-72.0 [facility] Comment on above: Order Comment: No: D o not add to previous draw Performed By: #### 1 0070, 03304, 92914, 70780, 47048, 78960 #### [facility] [address] [facility] [place] [address], [facility] Nucleated RBC/100 WBC (Bld) [Ratio] 0 % Normal 0-0 [facility] Comment on above: Order Comment: No: D o not add to previous draw Performed By: #### 1 0070, 20383, 75446, 78056, 01455, 03489 #### [facility] [address] [place] [address], [facility] PLAT CNT 264 10*3/uL Normal 150-400 [facility] Comment on above: Order Comment: No: D o not add to previous draw Performed By: #### 1 0070, 72123, 08034, 86354, 42975, 14638 #### [facility] [address] [place] [address], [facility] RBC (Bld) [#/Vol] 4.93 10*6/uL Normal 3.80-5.00 [facility] Comment on above: Order Comment: No: D o not add to previous draw Performed By: #### 1 0070, 54296, 17556, 15354, 70825, 99490 #### [facility] [address] [facility] [place] [address], [facility] WBC (Bld) [#/Vol] 6.17 10*3/uL Normal 4.00-10.60 [facility] Comment on above: Order Comment: No: D o not add to previous draw Performed By: #### 1 0070, 61167, 04312, 46670, 77821, 41897 #### [facility] [address] [facility] [place] [address], [facility] MAGNESIUM BLOODon 04-02-2020 Magnesium [Mass/Vol] 2.0 mg/dL Normal 1.9-2.7 [facility] Comment on above: Order Comment: No: D o not add to previous draw Performed By: #### 1 0070, 10864, 16708, 75685, 53088, 77397 #### [facility] [address] [facility] [place] [address], [facility] PHOSPHORUS BLOODon 0 Phosphate [Mass/Vol] 3.1 mg/dL Normal 2.5-5.0 [facility] Comment on above: Order Comment: No: D o not add to previous draw Performed By: #### 1 0070, 43500, 04316, 54846, 97630, 65917 #### [facility] [address] [facility] [place] [address], [facility] POC GLUCOSE LABon 04-02-2020 Glucose [Mass/Vol] 134 mg/dL High 70-100 [facility] Comment on above: Performed By: #### 1 0070, 30779, 99878, 15288, 63060, 30152 #### [facility] [address] [place] [address], [facility] UFH HEPARIN ASSAYon 04-02-20 20 UNFRACTIONATED HEPARIN 0.91 IU/mL Critically high 0.30-0.7 0 [facility] Comment on above: Result Comment: Violet roxaban and Apixaban will interfere with the anti Xa assay used to monitor UFH and LMWH. RESULTS CHECKED AND CALLED. ACCURATELY READ BACK BY LYNN POLANCO, RN @ [id number] Performed By: #### 1 0070, 46319, 96400, 94984, 41843, 49049 #### [facility] [address] [place] [address], [facility] ALBUMIN BLOODon 04-01-2020 Albumin [Mass/Vol] 3.0 g/dL Low 3.5-5.7 [facility] Comment on above: Performed By: #### 1 0070, 14013, 78308, 52274, 94490, 18488 #### [facility] [address] [place] [address], [facility] BASIC METABOLIC PANELon Calcium [Mass/Vol] 8.1 mg/dL Low 8.6-10.3 [facility] Comment on above: Order Comment: No: D o not add to previous draw Performed By: #### 1 0070, 23884, 77867, 10374, 65324, 59340 #### [facility] [address] [place] [address], [facility] Chloride [Moles/Vol] 105 mmol/L Normal 98-107 [facility] Comment on above: Order Comment: No: D o not add to previous draw Performed By: #### 1 0070, 36836, 41077, 48494, 29381, 40264 #### [facility] [address] [place] [address], [facility] CO2 [Moles/Vol] 26 mmol/L Normal 21-31 [facility] Comment on above: Order Comment: No: D o not add to previous draw Performed By: #### 1 0070, 60251, 84652, 51149, 72875, 96991 #### [facility] [address] [place] [address], [facility] Creatinine [Mass/Vol] 0.65 mg/dL Normal 0.60-1.20 [facility] Comment on above: Order Comment: No: D o not add to previous draw Performed By: #### 1 0070, 22532, 21140, 74166, 76165, 29445 #### [facility] [address] [place] [address], [facility] GFR/1.73 sq M predicted among blacks MDRD (S/P/Bld) [Vol rate/Area] mL/min/{1.73_m2} Normal >60 [facility] Comment on above: Order Comment: No: D o not add to previous draw Performed By: #### 1 0070, 49232, 33369, 42133, 55291, 73278 #### [facility] [address] [place] [address], [facility] GFR/1.73 sq M predicted among non-blacks MDRD (S/P/Bld) [Vol rate/Area] mL/min/{1.73_m2} Normal >60 [facility] Comment on above: Order Comment: No: D o not add to previous draw Performed By: #### 1 0070, 60345, 78543, 23815, 37505, 73529 #### [facility] [address] [place] [address], [place] Glucose [Mass/Vol] 87 mg/dL Normal 70-100 [facility] Comment on above: Order Comment: No: D o not add to previous draw Performed By: #### 1 0070, 17298, 66205, 22505, 43977, 84944 #### [facility] [address] Potassium [Moles/Vol] 4.3 mmol/L Normal 3.5-5.1 [facility] Comment on above: Order Comment: No: D o not add to previous draw Performed By: #### 1 0070, 45235, 50143, 47760, 62866, 35121 #### [facility] [address] Sodium [Moles/Vol] 136 mmol/L Normal 136-145 [facility] Comment on above: Order Comment: No: D o not add to previous draw Performed By: #### 1 0070, 71403, 77531, 81256, 90568, 20004 #### [facility] [address] Urea nitrogen [Mass/Vol] 8 mg/dL Normal 7-25 [facility] Comment on above: Order Comment: No: D o not add to previous draw Performed By: #### 1 0070, 13420, 26682, 04958, 32388, 11994 #### [facility] [address] CBC W/DIFFon 04-01-2020 ABS BASOPHILS 0.0 10*3/uL Normal 0.0-0.2 [facility] Comment on above: Order Comment: No: D o not add to previous draw Performed By: #### 1 0070, 64489, 58601, 68152, 27638, 50050 #### [facility] [address] [facility] [place] [address], [facility] ABS IMM GRANS 0.0 10*3/uL Normal 0.0-0.2 [facility] Comment on above: Order Comment: No: D o not add to previous draw Performed By: #### 1 0070, 85363, 35133, 74450, 53816, 25330 #### [facility] [address] [place] [address], [facility] ABS NEUTROPHILS 3.4 10*3/uL Normal 1.6-7.6 [facility] Comment on above: Order Comment: No: D o not add to previous draw Performed By: #### 1 0070, 06550, 78001, 38093, 46110, 59283 #### [facility] [address] [place] [address], [facility] Basophils/100 WBC (Bld) 0.2 % Normal 0.0-1.0 [facility] Comment on above: Order Comment: No: D o not add to previous draw Performed By: #### 1 0070, 52358, 50634, 74231, 20158, 38137 #### [facility] [address] [place] [address], [facility] Eosinophils (Bld) [#/Vol] 0.1 10*3/uL Normal 0.0-0.5 [facility] Comment on above: Order Comment: No: D o not add to previous draw Performed By: #### 1 0070, 86833, 05840, 32279, 97665, 83515 #### [facility] [address] [place] [address], [facility] Eosinophils/100 WBC (Bld) 2.6 % Normal 0.0-6.0 [facility] Comment on above: Order Comment: No: D o not add to previous draw Performed By: #### 1 0070, 14624, 48472, 51142, 40672, 52477 #### [facility] [address] [place] [address], [place] Erythrocyte distribution width (RBC) [Ratio] 13.0 % Normal 11.5-15.0 [facility] Comment on above: Order Comment: No: D o not add to previous draw Performed By: #### 1 0070, 85799, 14383, 37988, 59482, 81906 #### [facility] [address] [place] [address], [place] Hematocrit (Bld) [Volume fraction] 40.9 % Normal 36.0-45.0 [facility] Comment on above: Order Comment: No: D o not add to previous draw Performed By: #### 1 0070, 04477, 09173, 31851, 37131, 66010 #### [facility] [address] [facility] [place] [address], [facility] Hemoglobin (Bld) [Mass/Vol] 12.8 g/dL Normal 12.0-15.0 [facility] Comment on above: Order Comment: No: D o not add to previous draw Performed By: #### 1 0070, 46807, 58942, 34279, 32011, 74094 #### [facility] [address] [place] [address], [facility] IMMATURE GRANS 0.6 % Normal 0.0-1.0 [facility] Comment on above: Order Comment: No: D o not add to previous draw Performed By: #### 1 0070, 55699, 00536, 99011, 40591, 76481 #### [facility] [address] [place] [address], [facility] Lymphocytes (Bld) [#/Vol] 1.2 10*3/uL Normal 1.2-4.0 [facility] Comment on above: Order Comment: No: D o not add to previous draw Performed By: #### 1 0070, 14938, 82767, 09213, 90783, 41762 #### [facility] [address] [facility] [place] [address], [facility] Lymphocytes/100 WBC (Bld) 23.7 % Normal 20.0-45.0 [facility] Comment on above: Order Comment: No: D o not add to previous draw Performed By: #### 1 0070, 23961, 38538, 13183, 31720, 58149 #### [facility] [address] [facility] [place] [address], [facility] MCH (RBC) [Entitic mass] 27.4 pg Normal 27.0-33.0 [facility] Comment on above: Order Comment: No: D o not add to previous draw Performed By: #### 1 0070, 86345, 27685, 37968, 80441, 72663 #### [facility] [address] [facility] MCHC (RBC) [Mass/Vol] 31.3 g/dL Low 32.0-35.0 [facility] Comment on above: Order Comment: No: D o not add to previous draw Performed By: #### 1 0070, 82741, 96272, 61362, 08005, 95611 #### [facility] [address] MCV (RBC) [Entitic vol] 87.6 fL Normal 82.0-98.0 [facility] Comment on above: Order Comment: No: D o not add to previous draw Performed By: #### 1 0070, 90644, 81156, 41948, 01126, 38971 #### [facility] [address] Monocytes (Bld) [#/Vol] 0.3 10*3/uL Normal 0.1-1.0 [facility] Comment on above: Order Comment: No: D o not add to previous draw Performed By: #### 1 0070, 93052, 11505, 08960, 94141, 30054 #### [facility] [address] MONOS 5.4 % Normal 5.0-12.0 [facility] Comment on above: Order Comment: No: D o not add to previous draw Performed By: #### 1 0070, 88916, 52023, 50894, 48522, 03873 #### [facility] [address] [place] [address], [facility] Neutrophils/100 WBC (Bld) 67.5 % Normal 40.0-72.0 [facility] Comment on above: Order Comment: No: D o not add to previous draw Performed By: #### 1 0070, 75348, 72057, 06815, 20885, 81026 #### [facility] [address] [place] [address], [facility] Nucleated RBC/100 WBC (Bld) [Ratio] 0 % Normal 0-0 [facility] Comment on above: Order Comment: No: D o not add to previous draw Performed By: #### 1 0070, 30066, 84726, 34964, 59785, 39427 #### [facility] [address] [place] [address], [facility] PLAT CNT 237 10*3/uL Normal 150-400 [facility] Comment on above: Order Comment: No: D o not add to previous draw Performed By: #### 1 0070, 64829, 60973, 93878, 66354, 24789 #### [facility] [address] [place] [address], [facility] RBC (Bld) [#/Vol] 4.67 10*6/uL Normal 3.80-5.00 [facility] Comment on above: Order Comment: No: D o not add to previous draw Performed By: #### 1 0070, 82182, 85541, 79414, 08981, 41995 #### [facility] [address] [facility] [place] [address], [facility] WBC (Bld) [#/Vol] 4.98 10*3/uL Normal 4.00-10.60 [facility] Comment on above: Order Comment: No: D o not add to previous draw Performed By: #### 1 0070, 91457, 86044, 06963, 54825, 18580 #### [facility] [address] [facility] [place] [address], [facility] CHEST AND LATERALon 04-01-20 20 CHEST AND LATERAL [facility] Department of Radiology [address] [place] [address] Patient Name: EMIGDIO APODACA : 1965 Sex: F Age: Race: White Pt. Location: [id number] Patient Status: I Ordered Date: 04/01/2020 7:00:00 [...] airspace disease. Approved by:Anne Adams04/01/2020 9:57 AM. IShari,have reviewed the images and reports Electronically signed: Shari Salcedo. Transcribed by: [email or web address], User Resident: ANNE VEGA Electronically Signed by: SHARI SALCEDO @ 04/01/2020 10:12 AM I personally read this/these film(s) with this resident Normal [facility] Comment on above: Order Comment: No: D o not add to previous draw MAGNESIUM BLOODon 04-01-2020 Magnesium [Mass/Vol] 2.1 mg/dL Normal 1.9-2.7 [facility] Comment on above: Order Comment: No: D o not add to previous draw Performed By: #### 1 0070, 59463, 23693, 13506, 27985, 10118 #### [facility] [address] [employer] APTTon 03-31-2020 aPTT Coag (Bld) [Time] 28.3 s Normal 25.0-35.0 Th e [facility] Comment on above: Order Comment: No: [...] THIS PURPOSE. Performed By: #### 1 0070, 69039, 58973, 55273, 41134, 88461 #### [facility] [address] [place] [address], [facility] BASIC METABOLIC PANELon 03-04 Calcium [Mass/Vol] 7.8 mg/dL Low 8.6-10.3 [facility] Comment on above: Order Comment: No: D o not add to previous draw Performed By: #### 1 0070, 18959, 63989, 69728, 77815, 64763 #### [facility] [address] [place] [address], [facility] Chloride [Moles/Vol] 108 mmol/L High 98-107 [facility] Comment on above: Order Comment: No: D o not add to previous draw Performed By: #### 1 0070, 47984, 70744, 84546, 58618, 05669 #### [facility] [address] [place] [address], [place] CO2 [Moles/Vol] 26 mmol/L Normal 21-31 [facility] Comment on above: Order Comment: No: D o not add to previous draw Performed By: #### 1 0070, [id number], [id number], 69125, [id number], [id number] #### [facility] [address] [place] [address], [place] Creatinine [Mass/Vol] 0.76 mg/dL Normal 0.60-1.20 [facility] Comment on above: Order Comment: No: D o not add to previous draw Performed By: #### 1 0070, [id number], [id number], [id number], [id number], [id number] #### [facility] [address] [place] [address], [place] GFR/1.73 sq M predicted among blacks MDRD (S/P/Bld) [Vol rate/Area] mL/min/{1.73_m2} Normal >60 The [facility] Comment on above: Order Comment: No: D o not add to previous draw Performed By: #### 1 0070, 76904, 33616, 75951, 39767, 40039 #### [facility] [address] [place] [address], [place] GFR/1.73 sq M predicted among non-blacks MDRD (S/P/Bld) [Vol rate/Area] mL/min/{1.73_m2} Normal >60 The [facility] Comment on above: Order Comment: No: D o not add to previous draw Performed By: #### 1 0070, 39197, 33591, 45149, 08411, 61124 #### [facility] [address] [place] [address], [place] Glucose [Mass/Vol] 97 mg/dL Normal 70-100 The [facility] Comment on above: Order Comment: No: D o not add to previous draw Performed By: #### 1 0070, 85968, 62191, 35062, 20154, 63757 #### [facility] [address] [place] [address], [facility] Potassium [Moles/Vol] 3.2 mmol/L Low 3.5-5.1 The [facility] Comment on above: Order Comment: No: D o not add to previous draw Performed By: #### 1 0070, 45626, 52871, 77682, 91505, 00292 #### [facility] [address] [facility]. [address] Sodium [Moles/Vol] 140 mmol/L Normal 136-145 The [facility] Comment on above: Order Comment: No: D o not add to previous draw Performed By: #### 1 0070, 93599, 41664, 53969, 77004, 03578 #### [facility] [address] [facility]. [address] Urea nitrogen [Mass/Vol] 15 mg/dL Normal 7-25 The [facility] Comment on above: Order Comment: No: D o not add to previous draw Performed By: #### 1 0070, 71260, 38184, 46689, 02451, 44300 #### [facility] [address] [facility] [place] [address], [facility] CBC W/DIFFon 03-31-2020 ABS BASOPHILS 0.0 10*3/uL Normal 0.0-0.2 The [facility] Comment on above: Order Comment: No: D o not add to previous draw Performed By: #### 1 0070, 69382, 06099, 40503, 00102, 60827 #### [facility] [address] [place] [address], [facility] ABS IMM GRANS 0.0 10*3/uL Normal 0.0-0.2 The [facility] Comment on above: Order Comment: No: D o not add to previous draw Performed By: #### 1 0070, 57432, 49160, 13995, 62135, 77453 #### [facility] [address] [place] [address], [facility] ABS NEUTROPHILS 3.2 10*3/uL Normal 1.6-7.6 The [facility] Comment on above: Order Comment: No: D o not add to previous draw Performed By: #### 1 0070, 26596, 23982, 54086, 10944, 26559 #### [facility] [address] [facility] [place] [address], [facility] Basophils/100 WBC (Bld) 0.2 % Normal 0.0-1.0 The [facility] Comment on above: Order Comment: No: D o not add to previous draw Performed By: #### 1 0070, 72077, 12508, 32122, 63447, 27767 #### [facility] [address] [place] [address], [facility] Eosinophils (Bld) [#/Vol] 0.0 10*3/uL Normal 0.0-0.5 The [facility] Comment on above: Order Comment: No: D o not add to previous draw Performed By: #### 1 0070, 13922, 20150, 94071, 88707, 65404 #### [facility] [address] [place] [address], [facility] Eosinophils/100 WBC (Bld) 0.4 % Normal 0.0-6.0 The [facility] Comment on above: Order Comment: No: D o not add to previous draw Performed By: #### 1 0070, 44716, 94134, 84489, 47970, 27201 #### [facility] [address] [place] [address], [facility] Erythrocyte distribution width (RBC) [Ratio] 13.0 % Normal 11.5-15.0 The [facility] Comment on above: Order Comment: No: D o not add to previous draw Performed By: #### 1 0070, 98448, 83443, 17480, 58928, 43756 #### [facility] [address] [place] [address], [facility] Hematocrit (Bld) [Volume fraction] 34.4 % Low 36.0-45.0 The [facility] Comment on above: Order Comment: No: D o not add to previous draw Performed By: #### 1 0070, 73134, 19821, 36766, 90462, 42013 #### [facility] [address] [place] [address], [facility] Hemoglobin (Bld) [Mass/Vol] 10.8 g/dL Low 12.0-15.0 The [facility] Comment on above: Order Comment: No: D o not add to previous draw Performed By: #### 1 0070, 30083, 77067, 40187, 77090, 46655 #### [facility] [address] [facility] [address] IMMATURE GRANS 0.4 % Normal 0.0-1.0 The [facility] Comment on above: Order Comment: No: D o not add to previous draw Performed By: #### 1 0070, 64363, 45888, 70869, 10459, 19516 #### [facility] [address] [facility] [place] [address], [facility] Lymphocytes (Bld) [#/Vol] 1.2 10*3/uL Normal 1.2-4.0 The [facility] Comment on above: Order Comment: No: D o not add to previous draw Performed By: #### 1 0070, 42386, 69060, 34465, 12561, 43488 #### [facility] [address] [place] [address], [facility] Lymphocytes/100 WBC (Bld) 25.7 % Normal 20.0-45.0 The [facility] Comment on above: Order Comment: No: D o not add to previous draw Performed By: #### 1 0070, 30956, 91804, 37443, 74199, 76643 #### [facility] [address] [facility] [place] [address], [facility] MCH (RBC) [Entitic mass] 27.5 pg Normal 27.0-33.0 The [facility] Comment on above: Order Comment: No: D o not add to previous draw Performed By: #### 1 0070, 16515, 33109, 04173, 10856, 45581 #### [facility] [address] [facility] [place] [address], [facility] MCHC (RBC) [Mass/Vol] 31.4 g/dL Low 32.0-35.0 The [facility] Comment on above: Order Comment: No: D o not add to previous draw Performed By: #### 1 0070, 71326, 85429, 73335, 90678, 72300 #### [facility] [address] MCV (RBC) [Entitic vol] 87.5 fL Normal 82.0-98.0 The [facility] Comment on above: Order Comment: No: D o not add to previous draw Performed By: #### 1 0070, 78725, 31055, 02597, 42186, 46455 #### [facility] [address] [place] [address], [facility] Monocytes (Bld) [#/Vol] 0.3 10*3/uL Normal 0.1-1.0 The [facility] Comment on above: Order Comment: No: D o not add to previous draw Performed By: #### 1 0070, 00973, 21461, 06689, 09077, 65131 #### [facility] [address] MONOS 6.2 % Normal 5.0-12.0 The [facility] Comment on above: Order Comment: No: D o not add to previous draw Performed By: #### 1 0070, 21647, 41366, 11770, 78044, 13529 #### [facility] [address] [facility] [place] [address], [facility] Neutrophils/100 WBC (Bld) 67.1 % Normal 40.0-72.0 The [facility] Comment on above: Order Comment: No: D o not add to previous draw Performed By: #### 1 0070, 14106, 99999, 39163, 04665, 97712 #### [facility] [address] [facility] [place] [place] [address], [facility] Nucleated RBC/100 WBC (Bld) [Ratio] 0 % Normal 0-0 The [facility] Comment on above: Order Comment: No: D o not add to previous draw Performed By: #### 1 0070, 44375, 66164, 69703, 25471, 80501 #### [facility] [address] [facility] [place] [address], [facility] PLAT CNT 210 10*3/uL Normal 150-400 The [facility] Comment on above: Order Comment: No: D o not add to previous draw Performed By: #### 1 0070, 46806, 03093, 41232, 03746, 40661 #### [facility] [address] [facility] [place] [address], [facility] RBC (Bld) [#/Vol] 3.93 10*6/uL Normal 3.80-5.00 The [facility] Comment on above: Order Comment: No: D o not add to previous draw Performed By: #### 1 0070, 43510, 10650, 09565, 35726, 73797 #### [facility] [address] [facility] [place] [address], [facility] WBC (Bld) [#/Vol] 4.71 10*3/uL Normal 4.00-10.60 The [facility] Comment on above: Order Comment: No: D o not add to previous draw Performed By: #### 1 0070, 00240, 99386, 56831, 89672, 92089 #### [facility] [address] [facility] [place] [address], [facility] Cardiovascular Lab Reporton 03-31-2020 Cardiovascular Lab Report [facility] Patient Name: Emigdio Apodaca [facility] S MR #: [id number] Department of Physician: Rebecca Weaver M.D. Medicine Service Date: 03/31/2020 Division of Birthdate: 1965 Cardiology Room #: 3AB [id number] Adult Cardiovascular Services [facility] [address] [facility]. [place], [place] [address] Cardiovascular Laboratory Report INDICATIONS FOR PACEMAKER PLACEMENT: [...] P/Rebecca Weaver M.D. Date Trans: 03/31/2020 03:35 P/jamal [id number] cc: Tony Hines M.D. Heart Failure/ Transplant Mailstop [address] [place] [address] Normal The [facility] MAGNESIUM BLOODon 03-31-2020 Magnesium [Mass/Vol] 1.8 mg/dL Low 1.9-2.7 The [facility] Comment on above: Order Comment: No: D o not add to previous draw Performed By: #### 1 8600, 48040, 14531, 58975, 61097, 68351 #### [facility] [address] [place] [address], [facility] PHOSPHORUS BLOODon 0 Phosphate [Mass/Vol] 2.7 mg/dL Normal 2.5-5.0 The [facility] Comment on above: Order Comment: No: D o not add to previous draw Performed By: #### 1 0070, 71098, 95385, 80442, 19301, 57052 #### [facility] [address] [facility]. [address] PROTHROMBIN TIMEon 0 INR Coag (PPP) [Relative time] 1.11 {INR} Normal 0.91-1.16 The [facility] Comment on above: Order Comment: No: [...] CHEST 1995;108:231S-246S. Performed By: #### 1 0070, 66532, 57187, 83790, 90006, 45103 #### [facility] [address] [facility] [place] [address], [facility] PT Coag (PPP) [Time] 14.3 s Normal 12.3-14.8 The [facility] Comment on above: Order Comment: No: D o not add to previous draw Result Comment: ALL RESULTS MUST BE INTERPRETED WITH RESPECT TO BLOOD DRAWING ARTIFACT OR DILUTION ERROR OF ANTICOAGULANT AT THE TIME OF SAMPLING. Performed By: #### 1 0070, 75680, 32009, 02818, 82307, 55933 #### [facility] [address] *SARS-CoV-2 COVID-19on 03-30 [id number] Not Detected Normal Not Detected The [facility] Comment on above: Order Comment: No: D o not add to previous draw Performed By: #### 1 0070, 27258, 55536, 10550, 32032, 89835 #### [facility] [address] [facility] [place] [address], [facility] APTTon 03-30-2020 aPTT Coag (Bld) [Time] 24.9 s Low 25.0-35.0 Th e [facility] Comment on above: Order Comment: No: [...] THIS PURPOSE. Performed By: #### 5 7307, 51191 #### [facility] [address] [facility]. [address] BASIC METABOLIC PANELon 03-03 Calcium [Mass/Vol] 8.9 mg/dL Normal 8.6-10.3 The [facility] Comment on above: Order Comment: No: D o not add to previous draw Performed By: #### 1 0070, 33232, 45013, 87143, 93710, 12981 #### [facility] [address] [facility] [place] [address], [facility] Chloride [Moles/Vol] 110 mmol/L High 98-107 The [facility] Comment on above: Order Comment: No: D o not add to previous draw Performed By: #### 1 0070, 92219, 40391, 17034, 30731, 55350 #### [facility] [address] [facility] [place] [address], [facility] CO2 [Moles/Vol] 26 mmol/L Normal 21-31 The [facility] Comment on above: Order Comment: No: D o not add to previous draw Performed By: #### 1 0070, 87131, 81632, 91996, 44561, 27693 #### [facility] [address] [place] [address], [facility] Creatinine [Mass/Vol] 0.86 mg/dL Normal 0.60-1.20 The [facility] Comment on above: Order Comment: No: D o not add to previous draw Performed By: #### 1 0070, 51846, 69210, 60919, 69713, 98295 #### [facility] [address] [place] [address], [facility] GFR/1.73 sq M predicted among blacks MDRD (S/P/Bld) [Vol rate/Area] mL/min/{1.73_m2} Normal >60 The [facility] Comment on above: Order Comment: No: D o not add to previous draw Performed By: #### 1 0070, 78330, 44673, 50593, 66002, 96697 #### [facility] [address] [place] [address], [facility] GFR/1.73 sq M predicted among non-blacks MDRD (S/P/Bld) [Vol rate/Area] mL/min/{1.73_m2} Normal >60 The [facility] Comment on above: Order Comment: No: D o not add to previous draw Performed By: #### 1 0070, 34318, 24487, 43437, 35168, 55099 #### [facility] [address] [place] [address], [place] Glucose [Mass/Vol] 119 mg/dL High 70-100 The [facility] Comment on above: Order Comment: No: D o not add to previous draw Performed By: #### 1 0070, 58119, 72453, 87516, 93103, 17371 #### [facility] [address] Potassium [Moles/Vol] 3.5 mmol/L Normal 3.5-5.1 The [facility] Comment on above: Order Comment: No: D o not add to previous draw Performed By: #### 1 0070, 97922, 30181, 27515, 36183, 31152 #### [facility] [address] [facility] Sodium [Moles/Vol] 142 mmol/L Normal 136-145 The [facility] Comment on above: Order Comment: No: D o not add to previous draw Performed By: #### 1 0070, 94140, 30188, 41004, 13783, 18808 #### [facility] [address] Urea nitrogen [Mass/Vol] 13 mg/dL Normal 7-25 The [facility] Comment on above: Order Comment: No: D o not add to previous draw Performed By: #### 1 0070, 22114, 99947, 51815, 63988, 08758 #### [facility] [address] CBC W/DIFFon 03-30-2020 ABS BASOPHILS 0.0 10*3/uL Normal 0.0-0.2 The [facility] Comment on above: Performed By: #### 5 0103 #### [facility] [address] ABS IMM GRANS 0.0 10*3/uL Normal 0.0-0.2 The [facility] Comment on above: Performed By: #### 5 0103 #### [facility] [address] ABS NEUTROPHILS 5.7 10*3/uL Normal 1.6-7.6 The [facility] Comment on above: Performed By: #### 5 0103 #### [facility] [address] Basophils/100 WBC (Bld) 0.0 % Normal 0.0-1.0 The [facility] Comment on above: Performed By: #### 5 0103 #### [facility] [address] [place] [address], [facility] Eosinophils (Bld) [#/Vol] 0.0 10*3/uL Normal 0.0-0.5 The [facility] Comment on above: Performed By: #### 5 0103 #### [facility] [address] [place] [address], [facility] Eosinophils/100 WBC (Bld) 0.0 % Normal 0.0-6.0 The [facility] Comment on above: Performed By: #### 5 0103 #### [facility] [address] [facility] Erythrocyte distribution width (RBC) [Ratio] 12.9 % Normal 11.5-15.0 The [facility] Comment on above: Performed By: #### 5 0103 #### [facility] [address] Hematocrit (Bld) [Volume fraction] 36.1 % Normal 36.0-45.0 The [facility] Comment on above: Performed By: #### 5 0103 #### [facility] [address] [facility] [address] Hemoglobin (Bld) [Mass/Vol] 11.5 g/dL Low 12.0-15.0 The [facility] Comment on above: Performed By: #### 5 0103 #### [facility] [address] [place] [address], [facility] IMMATURE GRANS 0.5 % Normal 0.0-1.0 The [facility] Comment on above: Performed By: #### 5 0103 #### [facility] [address] [facility] [place] [address], [facility] Lymphocytes (Bld) [#/Vol] 0.6 10*3/uL Low 1.2-4.0 The [facility] Comment on above: Performed By: #### 5 0103 #### [facility] [address] [facility] [place] [address], [facility] Lymphocytes/100 WBC (Bld) 9.3 % Low 20.0-45.0 The [facility] Comment on above: Performed By: #### 5 0103 #### [facility] [address] [place] [address], [facility] MCH (RBC) [Entitic mass] 27.4 pg Normal 27.0-33.0 The [facility] Comment on above: Performed By: #### 5 0103 #### [facility] [address] MCHC (RBC) [Mass/Vol] 31.9 g/dL Low 32.0-35.0 The [facility] Comment on above: Performed By: #### 5 0103 #### [facility] [address] [place] [address], [facility] MCV (RBC) [Entitic vol] 86.0 fL Normal 82.0-98.0 The [facility] Comment on above: Performed By: #### 5 0103 #### [facility] [address] [place] [address], [facility] Monocytes (Bld) [#/Vol] 0.2 10*3/uL Normal 0.1-1.0 The [facility] Comment on above: Performed By: #### 5 3 #### [facility] [address] [place] [address], [facility] MONOS 2.5 % Low 5.0-12.0 The [facility] Comment on above: Performed By: #### 5 3 #### [facility] [address] [facility] [place] [address], [facility] Neutrophils/100 WBC (Bld) 87.7 % High 40.0-72.0 The [facility] Comment on above: Performed By: #### 5 0103 #### [facility] [address] Nucleated RBC/100 WBC (Bld) [Ratio] 0 % Normal 0-0 The [facility] Comment on above: Performed By: #### 5 0103 #### [facility] [address] [place] [address], [facility] PLAT CNT 261 10*3/uL Normal 150-400 The [facility] Comment on above: Performed By: #### 5 0103 #### [facility] [address] RBC (Bld) [#/Vol] 4.20 10*6/uL Normal 3.80-5.00 The [facility] Comment on above: Performed By: #### 5 0103 #### [facility] [address] [place] [address], [facility] WBC (Bld) [#/Vol] 6.47 10*3/uL Normal 4.00-10.60 The [facility] Comment on above: Performed By: #### 5 0103 #### [facility] [address] FREE T4on 03-30-2020 Free T4 [Mass/Vol] 1.48 ng/dL Normal 0.71-1.85 The [facility] Comment on above: Performed By: #### 1 0070, 17336, 19482, 03658, 18573, 57147 #### [facility] [address] [place] [address], [facility] MAGNESIUM BLOODon 03-30-2020 Magnesium [Mass/Vol] 2.0 mg/dL Normal 1.9-2.7 The [facility] Comment on above: Order Comment: No: D o not add to previous draw Performed By: #### 1 0070, 98716, 98926, 70125, 92953, 52594 #### [facility] [address] [facility] [place] [address], [facility] PHOSPHORUS BLOODon 0 Phosphate [Mass/Vol] 2.8 mg/dL Normal 2.5-5.0 The [facility] Comment on above: Order Comment: No: D o not add to previous draw Performed By: #### 1 0070, 87097, 10126, 64057, 46564, 76026 #### [facility] [address] [place] [address], [facility] PROTHROMBIN TIMEon 0 INR Coag (PPP) [Relative time] 1.21 {INR} High 0.91-1.16 The [facility] Comment on above: Order Comment: No: [...] CHEST 1995;108:231S-246S. Performed By: #### 5 7307, 73902 #### [facility] [address] [place] [address], [facility] PT Coag (PPP) [Time] 15.4 s High 12.3-14.8 The [facility] Comment on above: Order Comment: No: D o not add to previous draw Result Comment: ALL RESULTS MUST BE INTERPRETED WITH RESPECT TO BLOOD DRAWING ARTIFACT OR DILUTION ERROR OF ANTICOAGULANT AT THE TIME OF SAMPLING. Performed By: #### 5 7307, 61856 #### [facility] [address] TROPONIN-Ion 03-30-2020 Troponin I.cardiac [Mass/Vol] 0.02 ng/mL Normal 0.00-0.04 The [facility] Comment on above: Order Comment: No: D o not add to previous draw Result Comment: REFE RENCE RANGES: 0.00 - 0.04 ng/ml NORMAL 0.05 - 0.50 ng/ml INDETERMINATE > 0.50 ng/ml CONSISTENT WITH AN M.I. Performed By: #### 1 0070, 65023, 22827, 44591, 63325, 45562 #### [facility] [address] Troponin I.cardiac [Mass/Vol] 0.04 ng/mL Normal 0.00-0.04 The [facility] Comment on above: Order Comment: No: D o not add to previous draw Result Comment: REFE RENCE RANGES: 0.00 - 0.04 ng/ml NORMAL 0.05 - 0.50 ng/ml INDETERMINATE > 0.50 ng/ml CONSISTENT WITH AN M.I. Performed By: #### 3 5200 #### [facility] [address] Troponin I.cardiac [Mass/Vol] 0.04 ng/mL Normal 0.00-0.04 The [facility] Comment on above: Order Comment: No: D o not add to previous draw Result Comment: REFE RENCE RANGES: 0.00 - 0.04 ng/ml NORMAL 0.05 - 0.50 ng/ml INDETERMINATE > 0.50 ng/ml CONSISTENT WITH AN M.I. Performed By: #### 1 0070, 94641, 54290, 26824, 32526, 73937 #### [facility] [address] [place] [address], [facility] TSH3 WITH REFLEX FT4on 03-30 TSH 3RD GENERATION 0.02 uIU/mL Low 0.34-5.60 The [facility] Comment on above: Performed By: #### 1 0070, 24087, 31070, 94869, 87659, 68199 #### [facility] [address] Vital Signs Date Time Vital Sign Value Performing Clinician Faci lity 06-13-2024 12:13-0400 Body height 152.3 cm Zoila Monae MD Work Phone: [facility] 06-13-2024 12:13-0400 Body mass index (BMI) [Ratio] 19.98 kg/m2 Zoila Monae MD Work Phone: [facility] 06-13-2024 12:13-0400 Body weight 46.35 kg Zoila Monae MD Work Phone: [facility] 06-13-2024 12:13-0400 Diastolic blood pressure 77 mm[Hg] Zoila Monae MD Work Phone: [facility] 06-13-2024 12:13-0400 Heart rate 74 /min Zoila Monae MD Work Phone: [facility] 06-13-2024 12:13-0400 Systolic blood pressure 107 mm[Hg] Zoila Monae MD Work Phone: [facility] 03-06-2024 13:46-0400 Body height 153.5 cm Zoila Monae MD Work Phone: [facility] 03-06-2024 13:46-0400 Body mass index (BMI) [Ratio] 19.1 kg/m2 Zoila Monea MD Work Phone: [facility] 03-06-2024 13:46-0400 Body temperature 97.2 [degF] Zoila Monae MD Work Phone: [facility] 03-06-2024 13:46-0400 Body weight 45 kg Zoila Monae MD Work Phone: [facility] 03-06-2024 13:46-0400 Diastolic blood pressure 68 mm[Hg] Zoila Monae MD Work Phone: [facility] 03-06-2024 13:46-0400 Heart rate 106 /min Zoila Monae MD Work Phone: [facility] [facility]24 13:46-0400 Systolic blood pressure 101 mm[Hg] Zoila Monae MD Work Phone: [facility] 08-12-2022 15:32-0500 Body temperature 98.1 [degF] MD Tony Amaya Work Phone: [facility] 08-12-2022 15:32-0500 Diastolic blood pressure 69 mm[Hg] MD Tony Amaya Work Phone: [facility] 08-12-2022 15:32-0500 Heart rate 78 /min MD Tony Amaya Work Phone: [facility] 08-12-2022 15:32-0500 Respiratory rate 16 /min MD Tony Amaya Work Phone: [facility] 08-12-2022 15:32-0500 SaO2% (BldA) [Mass fraction] 94 % MD Tony Amaya Work Phone: [facility] 08-12-2022 15:32-0500 Systolic blood pressure 129 mm[Hg] MD Tony Amaya Work Phone: [facility] 08-12-2022 11:00-0500 Inhaled oxygen flow rate 3 L/min MD Tony Amaya Work Phone: [facility] 08-11-2022 12:39-0500 Body height 152.4 cm MD Tony Amaya Work Phone: [facility] 08-11-2022 06:00-0500 Body weight 44.9 kg MD Tony Amaya Work Phone: [facility] 08-10-2022 15:[id number] Body mass index (BMI) [Ratio] 19.1 kg/m2 MD Tony Amaya Work Phone: [facility] 08-03-2022 14:270400 Body weight 0 kg MD Tony Amaya Work Phone: [facility] Encounters Encounter Date Encounter Type Care Provider Facility Start: 06-13-2024 End: 06-13-2024 ambulatory SUKHDEV BARNETTWAL Facility:[facility] Start: 06-13-2024 End: 06-13-2024 Patient encounter procedure Zoila Monae MD Work Phone: [facility] Comment on above: Transient neurologic al symptoms (Primary Dx) Start: 06-11-2024 ambulatory ZOILA Berryi ty:[facility] Start: 06-11-2024 End: 06-11-2024 Subsequent hospital visit by physician Eeg [facility] Work Phone: [facility] EEG Comment on above: Memory deficit [R41. 3] Start: 06-04-2024 End: 06-04-2024 Orders Only Zoila Monae MD Work Phone: [facility] Comment on above: Memory deficit (Prim isamar Dx); Auditory hallucinations; Mentally challenged Start: 05-28-2024 End: 05-28-20[facility] Start: 05-15-2024 ambulatory Alejandro Flaherty acility:[facility] Start: 03-06-2024 End: 03-06-2024 ambulatory TONY AMAYA Facility:[facility] Start: 03-06-2024 End: 03-06-2024 Patient encounter procedure Zoila Monae MD Work Phone: [facility] Comment on above: Memory deficit (Prim isamar Dx); Auditory hallucinations; Mentally challenged Start: 02-20-2024 Emergency department patient visit REGAN ALDANA [facility] Start: 02-20-2024 End: 02-20-2024 Emergency department patient visit CASSANDRA ALCANTARA [facility] Start: 02-01-2024 End: 02-01-2024 ambulatory TONY AMAYA [facility] Start: 01-01-2024 Emergency department patient visit [facility] Start: 01-01-2024 End: 01-05-2024 Evaluation and management of inpatient P[address] [facility] Start: 10-24-2023 End: 10-24-2023 ambulatory MARI LOCKWOOD [facility] Start: 01-03-2023 End: 01-07-2023 Evaluation and management of inpatient DR TONY AMAYA . Facility:[facility] Start: 11-01-2022 End: 11-02-[address] TONY AMAYA . Facility:[facility] Start: 09-30-2022 End: 10-01-[address] ROSALINA BAUTISTA Facility:[facility] Start: 09-02-2022 End: 09-02-2022 ambulatory MD Tony Amaya Work Phone: [facility] Work Phone: Start: 09-02-2022 End: 09-02-2022 Patient encounter procedure MD Tony Amaya Work Phone: [facility] Start: 08-25-2022 End: 08-25-[address] ROSALINA BAUTISTA Facility: Start: 08-10-2022 End: 08-12-2022 Admission to same day surgery center MD Tony Amaya Work Phone: [facility] Start: 08-10-2022 End: 08-12-2022 ambulatory MD Tony Amaya Work Phone: [facility] Work Phone: Start: 08-08-2022 End: 08-08-2022 ambulatory MD Tony Amaya Work Phone: [facility] Work Phone: Start: 08-08-2022 End: 08-08-2022 Departed Referred MD Tony Amaya Work Phone: [facility] Start: 08-05-2022 End: 08-05-2022 ambulatory MD Tony Amaya Work Phone: [facility] Work Phone: Start: 08-05-2022 End: 08-05-2022 Patient encounter procedure MD Tony Amaya Work Phone: [facility] Start: 07-30-2022 End: 07-30-[address] ROSALINA BAUTISTA Facility:[facility] Start: 07-04-2022 End: 07-06-[address] TONY AMAYA . Facility:[facility] Start: 07-04-2022 End: 07-04-[address] ALBERTO FERRO Facility:[facility] Start: 06-29-2022 Encounter for preprocedural laboratory examination NADEGEMICHAEL GARDNER . [facility] Start: 06-27-2022 End: 06-28-2022 ambulatory NADEGEMICHAEL GARDNER . Facility:[facility] Start: 06-27-2022 End: 06-28-2022 Encounter for preprocedural laboratory examination NADEGEMICHAEL GARDNER . Facility:[facility] Start: 06-22-2022 End: 06-23-2022 ambulatory NADEGE GARDNER . Facility:[facility] Start: 06-20-2022 End: 06-20-[address] TONY AMAYA . Facility:[facility] Start: 06-20-2022 End: 06-21-2022 ambulatory NADEGE LEIGHA . Facility:[facility] Start: 03-03-[address] TOYN AMAYA . Facili ty:[facility] Start: 03-02-2022 End: 03-03-[address] TONY AMAYA . Facility:[facility] Start: 01-18-2022 End: 01-21-2022 Evaluation and management of inpatient DR TONY AMAYA . Facility:[facility] Start: 03-30-2020 End: 04-06-2020 Evaluation and management of inpatient EMMY TOLEDO Facility:[facility] Procedures Date Procedure Procedure Detail Performing Clinician Start: 06-11-2024 Electroencephalogram w/rec awake&drowsy Zoila Monae MD Work Phone: Start: 06-11-2024 Electroencephalogram w/rec awake&drowsy Provider [facility] Start: 09-02-2022 Plain chest X-ray MD Tony Amaya Work Phone: Start: 08-12-2022 End: 08-12-2022 Plain chest X-ray MD Jimenez Jesúsgabby Work Phone: Start: 08-11-2022 Plain chest X-ray MD Tony Amaya Work Phone: Start: 08-10-2022 Acid fast bacilli culture MD Jimenez Jesúsgabby Work Phone: Start: 08-10-2022 Acid fast stain method MD Jimenez Jesúsgabby Work Phone: Start: 08-10-2022 Aerobic microbial culture MD Tony Amaya Work Phone: Start: 08-10-2022 Anaerobic microbial culture MD Jimenez Laci berry Work Phone: Start: 08-10-2022 Investigation of transfusion reaction MD Jimenez Jesúsgabby Work Phone: Start: 08-10-2022 Mycology culture MD Jimenez Jesúsgabby Work Phone: Start: 08-10-2022 Plain chest X-ray MD Tony Amaya Work Phone: Start: 08-10-2022 Opening of chest MD Jimenez Jesúsgabby Work Phone: Start: 08-05-2022 Urine culture Tony Jose Luis Work Phone: Start: 08-05-2022 Plain chest X-ray MD Jimenez Jesúsgabby Work Phone: Start: 03-31-2020 INSERT PACE. DUAL YOVANA IN CHEST SUBCU/FASCIA, OPEN REBECCA MARTHA Start: 03-31-2020 INSERTION OF PACEMAKER LEAD INTO R VENTRICLE, PERC APPROACH REBECCA MARTHA Start: 03-31-2020 INSERTION OF PACEMAKER LEAD INTO RIGHT ATRIUM, PERC APPROACH REBECCA MARTHA Acid fast bacilli culture MD Tony Amaya Work Phone: Acid fast stain method MD Torres Work Phone: Aerobic microbial culture MD Tnoy Amaya Work Phone: Anaerobic microbial culture MD Tony Amaya Work Phone: Urine culture MD Tony Amaya Work Phone: Plan of Treatment Date Care Activity Detail Author Start: 02-19-2027 Diabetes Screening Diabetes Screenin g [facility] Start: 06-13-2024 End: 06-13-2024 Patient encounter procedure 06/13/2024 12:30 PM EDT Office Visit Neurology [facility] [address] [place] [address] [place] [address] [place] [address] Return in about 3 months (around 06/06/2024) for with Dr. Monae. Neurology [facility] Comment on above: Return in about 3 mo nths (around 06/06/2024) for with Dr. Monae. Start: 06-11-2024 End: 06-11-2024 Patient encounter procedure 06/11/2024 9:00 AM EDT Appointment [facility] EEG [address] [address] Memory deficit [R41.3] [facility] EEG Comment on above: Memory deficit [R41. 3] Start: 06-02-2024 Covid-19 Vaccine ( season) Covid-19 Vaccine () [facility] Start: 06-02-2024 Influenza vaccination [facility] Start: 03-29-2024 End: 03-29-2024 Patient encounter procedure 03/29/2024 11:45 AM EDT Office Visit Neurology [address] [place] [id number] Memory deficit [R41.3] Neurology Comment on above: Memory deficit [R41. 3] Start: 10-02-2023 Behavioral Health Screening Behavioral Health Screening [facility] Start: 06-02-2023 Covid-19 Vaccine ( season) Covid-19 Vaccine () [facility] Start: 08-12-2022 [facility] Start: 08-10-2022 Consultation [facility] Start: 08-10-2022 End: 08-10-2022 [facility] Start: 2014 Shingrix Vaccine (1 of 2) Shingrix Vaccine (1 of 2) [facility] Start: 2009 Lipid panel Lipid Screening [facility] Start: 2009 Screening for malign ant neoplasm of colon [facility] Start: 2004 Screening for malign ant neoplasm of breast Mammogram Screening [facility] Start: 1994 Screening for malign ant neoplasm of cervix HPV Testing [facility] Start: 1985 Screening for malign ant neoplasm of cervix [facility] Start: 1983 Urine microalbumin profile DTaP,Tdap,Td Vaccine (1 - Tdap) [facility] Start: 1982 Anxiety Screening Anxiety Screening [facility] Start: 1982 Depression Screening Depression Scre ening [facility] Start: 1982 Hepatitis C screening Hepatitis C Sc reening [facility] Start: 1982 HIV screening HIV Screening [facility] Acid Fast Bacilli Culture & Smear Acid Fast Bacilli Culture & Smear [facility] Anaerobic microbial culture Anaerobic Culture [facility] Bacteria identified in Urine by Culture Urine Culture [facility] Chlamydia trachomati s [Presence] in Unspecified specimen by Organism specific culture [facility] Work Phone: Chlamydia trachomati s [Presence] in Unspecified specimen by Organism specific culture [facility] EEG EEG NEUROLOGY 12:[address] [facility] End: 03-06-2025 EPIL EEG ROUTINE EPIL EEG ROUTINE NEUROLOGY Routine Memory deficit Auditory hallucinations 1 Occurrences starting 03/06/2024 until 03/06/[address] [facility] Work Phone: Comment on above: 1 Occurrences starti ng 03/06/2024 until 03/06/2025 Fungal Culture Result 1 Fungal Culture Re sult 1 [facility] Fungus identified in Unspecified specimen by Culture [facility] Work Phone: Mycobacterium sp identified in Unspecified specimen by Organism specific culture [facility] Work Phone: Mycology Culture Mycology Culture [facility] Work Phone: [facility] Payers Date Payer Category Payer Self-pay 2022 Medicaid [employer] [employer] [facility] MEDICAID [id number] 2022-Present [phone] [address] [place] [address] Medicaid [id number] 1964 Unknown [id number] 1964 Unknown [id number] 1964 Unknown [id number] [id number] 1964 Unknown [id number] [id number] 1964 Unknown [id number] [id number] 1964 Unknown [id number] [id number] 1964 Unknown [id number] [id number] 1964 Unknown [id number] [id number] 1964 Unknown [id number] [id number] 1964 Unknown [id number] [id number] 1964 Unknown [id number] [id number] 1964 Unknown [id number] [id number] 1964 Unknown [id number] [id number] 1964 Unknown [id number] [id number] 1964 Unknown [id number] [id number] 1959 Self-pay [id number] 1959 Unknown [id number] Unknown [id number] Social History Date Type Detail Facility Tobacco smoking stat [facility] Unknown if ever smoked [facility] Work Phone: Start: 1965 Sex Assigned At Female F [facility] Start: 08-10-2022 Tobacco smoking stat [facility] Never smoked tobacco (finding) [facility] Start: 03-06-2024 Tobacco smoking stat [facility] Tobacco smoking consumption unknown [facility] Start: 03-06-2024 History of Social function [facility] Start: 03-06-2024 Area Deprivation Index [facility] National Score (1-10 0), lower number is lower risk 76 [facility] Start: 1965 Sex Assigned At Not on file [facility] Medical Equipment Procedure Code Equipment Code Equipment Origin al Text Equipment Identifier Dates Thoracotomy Surgical adhesive/sealant, human-derived ([id number] [facility] Start: 08-10-2022 Goals Date Patient Goal Desired Activity /State Functional Status Date Assessment Result Facility 08-12-2022 Functional status Patient at Baseline [facility] Work Phone: Mental Status Date Assessment Result Facility 08-12-2022 Cognitive function Cognitive Sta tus Patient at Baseline [facility] Work Phone: Clinical Notes 08-10-2022 to 06-13-2024 Zoila Monae MD - 06/13/2024 12:30 PM EDTTelephone Encounter - Zoila Monae MD - 06/04/2024 1:21 PM EDTTelephone Encounter - Zoila Monae MD - 06/04/2024 1:21 PM EDT Note Date & Type Note Facility 06-13-2024 History of Present illness Narrative [facility] for General Neurology Follow up/ Established patient visit Individuals who were included in, or assisted with the encounter were: Emigdio Apodaca Zoila Monae MD Chief Complaint/Issues: Emigdio Apodaca is a 58 year old female seen in the [facility] for General Neurology for: Staring spells. Most Recent Neurological Assessment and Plan: Last Filed Values Date of Most Recent Assessment and Plan 03/06/24 Specialty General Neurology Assessment 1) Episodes of altered mental status: no significant risk other than multiple head injuries and brain seems to be smaller with lot more CSF around the brain, no hydrocephalus. 2) MOCA was 17/30 but given she has a hx of low IQ and is on disability I wonder if this is normal 3) increased sleepiness probably due to her dose of Meclizine 25 mg tid, I have asked her partner to cut all the pills in half and let her take 12.5 mg tid or bid and see if that helps. Plan 1) Reviewed MRI of head, ordered EEG 2) Referral for neuropsych testing HPI/Interval History: She is here by herself. More interactive and more awake today than last time I saw her. Less falls and she missed a step while walking on the porch but no significant injuries. She goes for walks on the streets and walks her dog. They went on vacations and other things happened and she has to reschedule her neuropsych testing. So asked her to make another appt. EEG is normal and she is not staring off as much. Her father and her paternal aunt from Alzheimer's and another paternal uncle and aunt have been diagnosed with it. She does not drink and neither does she smoke. Partner also quit smoking and drinking. Her B12 was low, she does not like meat or fish. She is on supplements now. General Examination: BP 107/77 (BP Site: Right Arm, BP Position: Sitting) Pulse 74 Ht 152.3 cm (4' 11.96 ) Wt 46.3 kg (102 lb 2.9 oz) LMP (LMP Unknown) BMI 19.98 kg/m General: Awake, alert, interactive, no acute distress, good nutritional status, normal development, well-kept Neurological Exam Mental Status Alert, fully oriented, attentive, with normal cognition, memory, speech and affect. Cranial Nerves Visual wright intact. Pupils reactive. Extraocular movements conjugate and full. No ptosis. No nystagmus. Facial sensation intact. Face symmetric and strong. Palate and tongue normal. XI normal. Motor Examination and Coordination Motor examination with normal bulk, strength and tone. No drift. Normal rapid alternating movements and coordination. No adventitious movements or significant tremor. Reflexes Deep tendon reflexes graded by [facility] Deep Tendon Reflexes Right Left Biceps 2 2 Triceps 2 2 Brachioradialis 2 2 Patellar 2 2 Achilles 1 1 Plantar Downgoing Downgoing Sensation Sensation intact to light touch, proprioception. Gait Arises easily. Casual gait - walks funny but steady - a little broad based and has her arms out at 30 degrees, unable to do tandem, and Romberg is normal. Can rise on heels and toes. CV: RRR without murmurs and no carotid or cranial bruit. Assessment & Plan 06/13/2024 - General Neurology, Zoila Monae MD ASSESSMENT 1) Staring spells and her sleepiness have resolved with tapering off the Meclizine. 2) Strong family hx of Alzheimer's disease and patient is having short term memory issues. She has not done the neuropsych testing and this still needs to be done. PLAN Follow up after the neuropsych testing and offered that she can have it done in [place] but she would rather come here. She was counseled about lifestyle changes: Nutrition: she is making more conscious effort to eat healthy Exercise: encouraged to exercise Hydration: encouraged to drink more, but she drinks tea and gatorade Sleep: normal CV risk reduction ( I do not see a lipid panel or A1c but do not have access to PCP's notes/labs) Follow up with PCP and her behavioral health doctor on a regular basis. Encounter Diagnosis ICD-10-CM 1. Transient neurological symptoms R29.818 No follow-ups on file. Data Review Objective Current Outpatient Medications Medication Sig albuterol HFA (PROVENTIL HFA, VENTOLIN HFA) 90 mcg/actuation inhaler Inhale 1 Puff as instructed as needed for wheezing/shortness of breath. buPROPion XL (WELLBUTRIN XL) 300 mg 24 hr tablet Take 300 mg by mouth once daily. calcium carbonate (CALTRATE) 600 mg calcium (1,500 mg) tab Take 1 tablet by mouth once daily. Cholecalciferol, Vitamin D3, 50 mcg (2,000 unit) cap Take 1 capsule by mouth once daily. citalopram (CELEXA) 20 mg tablet Take 20 mg by mouth once daily. docusate sodium (COLACE) 100 mg capsule Take 100 mg by mouth once daily. escitalopram oxalate (LEXAPRO) 10 mg tablet Take 10 mg by mouth once daily. lamoTRIgine dispersible/chewable (LAMICTAL) 25 mg chewable tablet Take 25 mg by mouth once daily. lansoprazole (PREVACID) 30 mg capsule Take 30 mg by mouth once daily. levothyroxine (SYNTHROID) 125 mcg tablet Take 125 mcg by mouth once daily. loratadine (CLARITIN) 10 mg tablet Take 10 mg by mouth once daily. simvastatin (ZOCOR) 20 mg tablet Take 20 mg by mouth daily at bedtime. No current facility-administered medications for this visit. ACTIVE PROBLEM LIST Transient Neurological Symptoms No past medical history on file. No past surgical history on file. No family history on file. Review of Systems Constitutional: Negative. Skin: Negative. HENT: Negative. Musculoskeletal: Positive for back pain. Eyes: Negative. Respiratory: Emphysema Cardiovascular: Pacemaker for arhythmia Gastrointestinal: Negative. Endocrine: Positive for thyroid problem. Genitourinary: Negative. Hematologic/Lymphatic: Negative. Allergic/Immunologic: Negative. Psychiatric: Positive for dysphoric mood. Lab and Test Review: General Medical Labs: Last 3 sets of CBC, CMP, Lipids, HBA1C, TSH: CMP normal, CBC is normal Common Neurology Labs: Last 3 sets of ESR, CRP, CK, Vitamin B12, MMA, Folate, Vitamin D, Copper B12 148 and she is on supplement. T4 normal, TSH low, MRI Head/Brain - Last 2 Impressions MRI BRAIN WO/W IVCON Exam End: 02/01/2024 2:55 PM (Final result) Impression: No acute intracranial abnormality. No clear etiology to account for headaches. Electronically signed: Karthikeyan Linn. CT Head/Brain - Last [address] BRAIN WO IVCON Exam End: 01/01/2024 11:05 PM (Final result) Impression: Unremarkable unenhanced CT of the brain. Electronically signed: Shari Mahoney. CTA Head and/or Neck - Last 2 CTA NECK W IVCON Exam End: 01/01/2024 11:05 PM (Final result) Impression: 1. Patent cervical carotid arteries. Electronically signed: Shari Mahoney. CTA HEAD WO/W IVCON Exam End: 01/01/2024 11:05 PM (Final result) Impression: Unremarkable intracranial CT angiogram. Electronically signed: Shari Mahoney. Outside Data/Labs: not available from her PCP Subjective Patient-Entered Data: 06/11/24 - GENERAL NEUROLOGY SCORES I spent a total of 30 minutes on the date of the service which included preparing to see the patient, [id number] patient care, completing clinical documentation, obtaining and/or reviewing separately obtained history, performing a medically appropriate examination, counseling and educating the patient/family/caregiver, ordering medications, tests, or procedures, communicating with other HCPs (not separately reported), and communicating results to the patient/family/caregiver. Zoila Monae MD documented in this encounter [facility] 06-13-2024 Note HNO ID: [id number] Author: ZOILA MONAE MD Service: ? Author Type: Physician Type: Progress Notes Filed: 06/13/2024 13:41 Note Text: [facility] General Neurology Follow up/ Established patient visit Individuals who were included in, or assisted with the encounter were: Emigdio Apodaca Zoila Monae MD Chief Complaint/Issues: Emigdio Apodaca is a 58 year old female seen in the [facility] for General Neurology for: Staring spells. Most Recent Neurological Assessment and Plan: Last Filed Values Date of Most Recent Assessment and Plan 03/06/24 Specialty General Neurology Assessment 1) Episodes of altered mental status: no significant risk other than multiple head injuries and brain seems to be smaller with lot more CSF around the brain, no hydrocephalus. 2) MOCA was 17/30 but given she has a hx of low IQ and is on disability I wonder if this is normal 3) increased sleepiness probably due to her dose of Meclizine 25 mg tid, I have asked her partner to cut all the pills in half and let her take 12.5 mg tid or bid and see if that helps. Plan 1) Reviewed MRI of head, ordered EEG 2) Referral for neuropsych testing HPI/Interval History: She is here by herself. More interactive and more awake today than last time I saw her. Less falls and she missed a step while walking on the porch but no significant injuries. She goes for walks on the streets and walks her dog. They went on vacations and other things happened and she has to reschedule her neuropsych testing. So asked her to make another appt. EEG is normal and she is not staring off as much. Her father and her paternal aunt from Alzheimer's and another paternal uncle and aunt have been diagnosed with it. She does not drink and neither does she smoke. Partner also quit smoking and drinking. Her B12 was low, she does not like meat or fish. She is on supplements now. General Examination: BP 107/77 (BP Site: Right Arm, BP Position: Sitting) Pulse 74 Ht 152.3 cm (4' 11.96 ) Wt 46.3 kg (102 lb 2.9 oz) LMP (LMP Unknown) BMI 19.98 kg/m? General: Awake, alert, interactive, no acute distress, good nutritional status, normal development, well-kept Neurological Exam Mental Status Alert, fully oriented, attentive, with normal cognition, memory, speech and affect. Cranial Nerves Visual wright intact. Pupils reactive. Extraocular movements conjugate and full. No ptosis. No nystagmus. Facial sensation intact. Face symmetric and strong. Palate and tongue normal. XI normal. Motor Examination and Coordination Motor examination with normal bulk, strength and tone. No drift. Normal rapid alternating movements and coordination. No adventitious movements or significant tremor. Reflexes Deep tendon reflexes graded by MRC Deep Tendon Reflexes Right Left Biceps 2 2 Triceps 2 2 Brachioradialis 2 2 Patellar 2 2 Achilles 1 1 Plantar Downgoing Downgoing Sensation Sensation intact to light touch, proprioception. Gait Arises easily. Casual gait - walks funny but steady - a little broad based and has her arms out at 30 degrees, unable to do tandem, and Romberg is normal. Can rise on heels and toes. CV: RRR without murmurs and no carotid or cranial bruit. Assessment AND Plan 06/13/2024 - General Neurology, Zoila Monae MD ASSESSMENT 1) Staring spells and her sleepiness have resolved with tapering off the Meclizine. 2) Strong family hx of Alzheimer's disease and patient is having short term memory issues. She has not done the neuropsych testing and this still needs to be done. PLAN Follow up after the neuropsych testing and offered that she can have it done in [place] but she would rather come here. She was counseled about lifestyle changes: Nutrition: she is making more conscious effort to eat healthy Exercise: encouraged to exercise Hydration: encouraged to drink more, but she drinks tea and gatorade Sleep: normal CV risk reduction ( I do not see a lipid panel or A1c but do not have access to PCP's notes/labs) Follow up with PCP and her behavioral health doctor on a regular basis. Encounter Diagnosis ICD-10-CM 1. Transient neurological symptoms R29.818 No follow-ups on file. Data Review Objective Current Outpatient Medications Medication Sig albuterol HFA (PROVENTIL HFA, VENTOLIN HFA) 90 mcg/actuation inhaler Inhale 1 Puff as instructed as needed for wheezing/shortness of breath. buPROPion XL (WELLBUTRIN XL) 300 mg 24 hr tablet Take 300 mg by mouth once daily. calcium carbonate (CALTRATE) 600 mg calcium (1,500 mg) tab Take 1 tablet by mouth once daily. Cholecalciferol, Vitamin D3, 50 mcg (2,000 unit) cap Take 1 capsule by mouth once daily. citalopram (CELEXA) 20 mg tablet Take 20 mg by mouth once daily. docusate sodium (COLACE) 100 mg capsule Take 100 mg b (more content not included)... [facility] 06-11-2024 Note HNO ID: [id number] Author: NARCISA YUSUF MD Service: Neurology General Author Type: Physician Type: Procedures Filed: 06/13/2024 13:25 Note Text: [facility] - Electroencephalogram EMIGDIO APODACA : 1965 AGE: 58 SEX: F [facility]: [id number] LOCATION: ATTENDING PHYSICIAN: DATE OF PROCEDURE: 06/11/2024 CLINICAL HISTORY: This is an EEG study for a 58-year-old female. No past medical history had been provided. REASON FOR STUDY: Change in mental status. TECHNIQUE: This is a 16-channel EEG on awake and drowsy state. Posterior background rhythm symmetrical and synchronous at a rate of 8-9 hertz. No lateralized epileptiform discharges have been noted. The EEG tracing shows a good cortical drive to photic stimulation. IMPRESSION: This is a normal EEG. No lateralized epileptiform discharges have been noted. Narcisa Yusuf M.D. Neurology HK:[id number] /[id number] [facility] 06-04-2024 Telephone encounter Note A new neuropsych order has been put in. Thanks Zoila Monae MD [facility] Work Phone: 06-04-2024 Miscellaneous Notes A new neuropsych order has been put in. Thanks Zoila Monae MD documented in this encounter [facility] 06-04-2024 Note HNO ID: [id number] Author: ZOILA MONAE MD Service: ? Author Type: Physician Type: Progress Notes Filed: 06/04/2024 13:22 Note Text: Neuropsychology order had when they tried to get her in. A new order has been put in and good for a year. Zoila Monae MD [facility] 06-04-2024 History of Present illness Narrative Neuropsychology order had when they tried to get her in. A new order has been put in and good for a year. Zoila Monae MD documented in this encounter [facility] 03-06-2024 History of Present illness Narrative Images from the original note were not included. [facility] for General Neurology New Patient Evaluation Consulting Provider: Tony Amaya [facility] [address] The patient presents with a chief complaint as listed below, and is seen in consultation requested by Dr. Tony Amaya for an opinion regarding these symptoms. My final recommendations will be communicated back to the requesting physician by way of shared medical record or letter via US mail. Dear Dr. Amaya, Thank you for the referral. Please let me know if you have any questions. Individuals who were included in, or assisted with the encounter were: Emigdio Apodaca Partner: Bozena Monae MD Chief Complaint/Issues: Emigdio Apodaca is a 58 year old Rh female seen in the [facility] for General Neurology for: Cognitive evaluation and dementia HPI: Partner noticed like she would not be focused, staring off into space, she loses things a lot. She is starting to talk to herself. She is in her own little world. Just hears voices, but she can't tell what she is hearing. She does her ADLs, but needs reminding about her appts, she has been having lightheadedness and vertigo and is not driving. She has been laying a lot and sleeping. Reviewed her meds and she is on Meclizine 25 mg tid and states that she tried going off and she had dizziness. If this recurs patient can have Vestibular therapy. Told her partner to cut the pills in half and give her 12.5 mg tid for now. Sometimes she is doing something and then she will start staring off into space and she has never done that before. Started about six months ago. Never had a seizure in her life. If she is doing this her partner can move her hands in front of her eyes and she will startle. NO wandering behavior. She does not cook now as her kids are grown, and she has been eating peanut butter sandwiches. Has weighed usually 105 but now weighs 99 lbs ( it is not unusual for her to lose a few lbs in the summer). They have lived together for 25 yrs and they have brought up their children together. She trips over things easily now but no injuries. Recognizing people ok, no bowel incontinence but has been using diapers as she loses her bladder control easily and I get the feeling this has also been going on for sometime. She had bladder surgery when she was 4 yrs of age and not sure for what. She has been wearing diapers for the last year. She has COPD and never smoked but was exposed to second hand smoke. She has oxxygen at home as needed. She is on disability for low IQ. She worked in a [employer] shop and only worked 6 months. She has a speech impairment. Her father of Alzheimer's, father's sisters and his brother had it. Mother is also getting memory issues. When patient was young, no seizures, but would stay in one place when placed under the tree with toys.for hours and never wander off unlike her brother who her mother placed similarly thinking he will stay in place and he wandered off on the road and ended up being a victim of car accident. Head injury: she fell off a ladder, fell down the basement stairs. No Febrile sz, no brain meningitis or encephalitis No family hx of seizures.except her brother but he got hit in the head as pedestrian from a car. General Examination: BP 101/68 (BP Site: Right Arm, BP Position: Sitting) Pulse 106 Temp 36.2 C (97.2 F) (Temporal) Ht 153.5 cm (5' 0.43 ) Wt 45 kg (99 lb 3.3 oz) LMP (Approximate) BMI 19.10 kg/m General: Awake, alert, interactive, no acute distress, good nutritional status, normal development, well-kept Neurological Exam Mental Status Alert, fully oriented, attentive, with normal cognition, memory, speech and affect. Cranial Nerves Visual wright intact. Fundi with normal discs and vasculature. Pupils reactive. Extraocular movements conjugate and full. No ptosis. No nystagmus. Facial sensation intact. Face symmetric and strong. Palate and tongue normal. XI normal. Motor Examination and Coordination Motor examination with normal bulk, strength and tone. No drift. Normal rapid alternating movements and coordination. No adventitious movements or significant tremor. Reflexes Deep tendon reflexes graded by MRC Deep Tendon Reflexes Right Left Biceps 2 2 Triceps 2 2 Brachioradialis 2 2 Patellar 2 2 Achilles 2 2 Plantar Downgoing Downgoing Sensation Sensation intact to light touch, pinprick, proprioception. Gait Arises easily. Casual gait, tandem, and Romberg are normal. Can rise on heels and toes. CV: RRR without any murmurs and no carotid or cranial bruit auscultated [facility] Cognitive Assessment (MoCA) Version 1 Total Score: 17/30 Visuospatial/Executive Alternating [place] Making: Patient successfully draws the pattern without drawing any lines that cross. (+1) Visuoconstructional Skills (Shape): Patient correctly executed drawing. (+1) Visuoconstructional Skills (Clock): Abnormal-Hands Visuospatial/Executive Score: 4/5 Naming The patient was able to name: Camel or Dromedary, Lion, Rhinoceros or Rhino Naming Score: 3/3 Memory Trials Memory Trial (1): The patient was able to correctly register: 5/5 Memory Trial (2): The patient was able to correctly register: 4/5 Attention Forward Digit Span: Correct (+1) Backward Digit Span: Correct (+1) Vigilance: Correct (+1) Attention - Serial 7's: (1) Correct subtraction (+1) Attention Score: 4/6 Language Sentence Repetition (1): Incorrect (0) Sentence Repetition (2): Incorrect (0) Verbal Fluency: Patient produced 9 words. (+0) Language Score: 0/3 Abstraction Abstraction (1): Patient successfully related similarity. (+1) Abstraction (2): Patient unable to relate similarity. (0) Abstraction Score: 1/2 Delayed Recall Word 1: Required category cue- 'part of the body' (0) Word 2: Required category cue- 'type of fabric' (0) Word 3: Required multiple choice- 'orthodoxy, school, hospital' (0) Word 4: Required category cue- 'type of flower' (0) Word 5: Required category cue- 'a color' (0) Delayed Recall Score: 0/5 Orientation The patient was able to answer correctly: exact date, month, year, exact place (name of hospital, clinic, office). Orientation Score: 4/6 Education less than or equal to 12th grade: +1 Semantic Fluency Patient produced 8 words. MoCA Past Scores 03/06/2024 MoCA MOCA TOTAL SCORE 17 out of 30 Visuospatial/ Executive 4 Naming 3 Attention 4 Language 0 Abstraction 1 Delayed Recall 0 Orientation 4 Education Level 1 Assessment & Plan 03/06/2024 - General Neurology, Zoila Monae MD ASSESSMENT 1) Episodes of altered mental status: no significant risk other than multiple head injuries and brain seems to be smaller with lot more CSF around the brain, no hydrocephalus. 2) MOCA was 17/30 but given she has a hx of low IQ and is on disability I wonder if this is normal 3) increased sleepiness probably due to her dose of Meclizine 25 mg tid, I have asked her partner to cut all the pills in half and let her take 12.5 mg tid or bid and see if that helps. PLAN 1) Reviewed MRI of head, ordered EEG 2) Referral for neuropsych testing Encounter Diagnosis ICD-10-CM 1. Memory deficit R41.3 NEUROPSYCHOLOGICAL TESTING CONSULT EPIL EEG ROUTINE 2. Auditory hallucinations R44.0 NEUROPSYCHOLOGICAL TESTING CONSULT EPIL EEG ROUTINE 3. Mentally challenged F79 NEUROPSYCHOLOGICAL TESTING CONSULT Return in about 3 months (around 06/06/2024) for with Dr. Monae. Data Review Objective albuterol 90 mcg/actuation inhaler every 4 (four) hours. 0 buPROPion XL (Wellbutrin XL) 300 mg 24 hr tablet 1 (one) time each day at the same time. 0 cholecalciferol, vitamin D3, 50 mcg (2,000 unit) capsule 1 capsule 1 (one) time each day at the same time. 0 lamoTRIgine (LaMICtal) 25 mg tablet Take 2 tablets by mouth in the morning. 0 02/21/2023 lansoprazole (Prevacid) [address] capsule 1 (one) time each day at the same time. 0 levothyroxine (Synthroid, Levoxyl) 125 mcg tablet Take 125 mcg by mouth in the morning. 0 02/27/2023 loratadine (Claritin) 10 mg tablet Take 10 mg by mouth in the morning. 0 02/27/2023 simvastatin (Zocor) 20 mg tablet Take 20 mg by mouth at bedtime. 0 02/27/2023 Meclizine 25 mg tabs tid for vertigo Past Medical History: Diagnosis Date Abnormal ECG COPD (chronic obstructive pulmonary disease) ([facility]) Hyperlipidemia Past Surgical History: Procedure Laterality Date CHOLECYSTECTOMY INSERT / REPLACE / REMOVE PACEMAKER Family History Problem Relation Name Age of Onset Alzheimer's disease Father Social History Tobacco Use Smoking status: Never Smokeless tobacco: Never Substance Use Topics Alcohol use: Not Currently Drug use: Not on file Review of Systems Review of Systems Constitutional: Negative. HENT: Negative for congestion. Cardiovascular: Positive for chest pain. Negative for palpitations. Gastrointestinal: Positive for nausea. Negative for abdominal pain. Endocrine: Negative. Genitourinary: Negative for dysuria. Musculoskeletal: Negative for myalgias. Skin: Negative for rash. Allergic/Immunologic: Negative. Neurological: Positive for dizziness. Negative for syncope. Hematological: Negative. No family history on file. Review of Systems Constitutional: Negative. Skin: Negative. HENT: Negative. Musculoskeletal: Positive for back pain. Eyes: Negative. Respiratory: COPD from second hand smoke Asthma Cardiovascular: Negative. Gastrointestinal: Positive for constipation and diarrhea. Endocrine: Positive for thyroid problem. Genitourinary: Negative. Hematologic/Lymphatic: Negative. Allergic/Immunologic: Negative. Psychiatric: Positive for dysphoric mood and nervous/anxious. Lab and Test Review: General Medical Labs: Last 3 sets of CBC, CMP, Lipids, HBA1C, TSH No data to display Common Neurology Labs: Last 3 sets of ESR, CRP, CK, Vitamin B12, MMA, Folate, Vitamin D, Copper No data to display MRI Head/Brain - Last 2 Impressions MRI BRAIN WO/W IVCON Exam End: 02/01/2024 2:55 PM (Final result) Impression: No acute intracranial abnormality. No clear etiology to account for headaches. COMPARISON: 01/01/2024 FINDINGS: No acute ischemia. No [...] account for headaches. Electronically signed: Karthikeyan Linn. Electronically signed: Karthikeyan Linn. Outside Data/Labs: 01/2024 at [facility]: Tox screen negative, Etoh negative, CBC is normal, CMP is normal, Folate 34, B12 148, TSH 0.01 IMPRESSION: Unremarkable intracranial CT angiogram. Unremarkable unenhanced CT of the brain. Unremarkable extracranial CT angiogram Subjective Patient-Entered Data: 03/04/24 - GENERAL NEUROLOGY SCORES I spent a total of 55 minutes on the date of the service which included preparing to see the patient, [id number] patient care, completing clinical documentation, obtaining and/or reviewing separately obtained history, performing a medically appropriate examination, counseling and educating the patient/family/caregiver, ordering medications, tests, or procedures, communicating with other HCPs (not separately reported), and communicating results to the patient/family/caregiver. Zoila Monae MD documented in this encounter [facility] 03-06-2024 Note HNO ID: [id number] Author: ZOILA MONAE MD Service: ? Author Type: Physician Type: Progress Notes Filed: 03/06/2024 15:39 Note Text: [facility] for General Neurology New Patient Evaluation Consulting Provider: Tony Amaya [address] [address] The patient presents with a chief complaint as listed below, and is seen in consultation requested by Dr. Tony Amaya for an opinion regarding these symptoms. My final recommendations will be communicated back to the requesting physician by way of shared medical record or letter via US mail. Dear Dr. Amaya, Thank you for the referral. Please let me know if you have any questions. Individuals who were included in, or assisted with the encounter were: Emigdio Apodaca Partner: Bozena Monae MD Chief Complaint/Issues: Emigdio Apodaca is a 58 year old Rh female seen in the [facility] for General Neurology for: Cognitive evaluation and dementia HPI: Partner noticed like she would not be focused, staring off into space, she loses things a lot. She is starting to talk to herself. She is in her own little world. Just hears voices, but she can't tell what she is hearing. She does her ADLs, but needs reminding about her appts, she has been having lightheadedness and vertigo and is not driving. She has been laying a lot and sleeping. Reviewed her meds and she is on Meclizine 25 mg tid and states that she tried going off and she had dizziness. If this recurs patient can have Vestibular therapy. Told her partner to cut the pills in half and give her 12.5 mg tid for now. Sometimes she is doing something and then she will start staring off into space and she has never done that before. Started about six months ago. Never had a seizure in her life. If she is doing this her partner can move her hands in front of her eyes and she will startle. NO wandering behavior. She does not cook now as her kids are grown, and she has been eating peanut butter sandwiches. Has weighed usually 105 but now weighs 99 lbs ( it is not unusual for her to lose a few lbs in the summer). They have lived together for 25 yrs and they have brought up their children together. She trips over things easily now but no injuries. Recognizing people ok, no bowel incontinence but has been using diapers as she loses her bladder control easily and I get the feeling this has also been going on for sometime. She had bladder surgery when she was 4 yrs of age and not sure for what. She has been wearing diapers for the last year. She has COPD and never smoked but was exposed to second hand smoke. She has oxxygen at home as needed. She is on disability for low IQ. 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 She has a speech impairment. Her father of Alzheimer's, father's sisters and his brother had it. Mother is also getting memory issues. When patient was young, no seizures, but would stay in one place when placed under the tree with toys.for hours and never wander off unlike her brother who her mother placed similarly thinking he will stay in place and he wandered off on the road and ended up being a victim of car accident. Head injury: she fell off a ladder, fell down the basement stairs. No Febrile sz, no brain meningitis or encephalitis No family hx of seizures.except her brother but he got hit in the head as pedestrian from a car. General Examination: BP 101/68 (BP Site: Right Arm, BP Position: Sitting) Pulse 106 Temp 36.2 ?C (97.2 ?F) (Temporal) Ht 153.5 cm (5' 0.43 ) Wt 45 kg (99 lb 3.3 oz) LMP (Approximate) BMI 19.10 kg/m? General: Awake, alert, interactive, no acute distress, good nutritional status, normal development, well-kept Neurological Exam Mental Status Alert, fully oriented, attentive, with normal cognition, memory, speech and affect. Cranial Nerves Visual wright intact. Fundi with normal discs and vasculature. Pupils reactive. Extraocular movements conjugate and full. No ptosis. No nystagmus. Facial sensation intact. Face symmetric and strong. Palate and tongue normal. XI normal. Motor Examination and Coordination Motor examination with normal bulk, strength and tone. No drift. Normal rapid alternating movements and coordination. No adventitious movements or significant tremor. Reflexes Deep tendon reflexes graded by MRC Deep Tendon Reflexes Right Left Biceps 2 2 Triceps 2 2 Brachioradialis 2 2 Patellar 2 2 Achilles 2 2 Plantar Downgoing Downgoing Sensation Sensation intact to light touch, pinprick, proprioception. Gait Arises easily. Casual gait, tandem, and Romberg are normal. Can rise on heels and toes. CV: RRR without any murmurs and no carotid or cranial bruit auscultated [facility] Cognitive Assessment (MoCA) Version 1 Total Score: 1730 Visuospatial/Executive Alternating [place] Making: Patient successfully draws the (more content not included)... [facility] 02-20-2024 Note Procedure ECG 12 lead Performed by: Regan Aldana NP Authorized by: Cassandra Alcantara MD ECG interpreted by ED Physician in the absence of a spray operator: yes Rate: ECG rate: 79 ECG rate assessment: normal Rhythm: Rhythm: sinus rhythm and paced Pacing: Capture: Complete Type of pacing: Atrial Ectopy: Ectopy: none QRS: QRS axis: Normal QRS intervals: Normal QRS conduction: normal ST segments: ST segments: Normal T waves: T waves: normal Regan Aldana NP 02/20/241906 [facility] 01-05-2024 Note SW rec'd consult for DME and 24 hr assist at home. 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 Patient to discharge home this evening. [facility] 01-05-2024 Note Occupational Therapy Occupational Therapy Treatment Patient Name: Emigdio Apodaca : 1965 Today's Date: 01/05/2024 01/05/24 0852 Time Calculation Start Time 0852 Stop Time 18 Time Calculation (min) 26 min Problem List Patient Active Problem List Diagnosis Abdominal pain Constipated Dyspepsia COPD (chronic obstructive pulmonary disease) (CMS/HCC) CURRAN (dyspnea on exertion) Pacemaker Hyperlipidemia Dizziness Unspecified severe protein-calorie malnutrition ([facility]/HCC) Treatment: 01/05/24 0852 OT Last Visit OT Received On 01/05/24 [...] cristina-hygiene and clothing managment w/ setup from typewriter repairer Functional Standing Tolerance Time untimed Activity bed<>toilet, [...] Toileting, which includes (more content not included)... [facility] 01-04-2024 Note [facility] Medicine Daily Progress Note - 01/04/2024 1:18 PM; Room: 4179/4179-01 Admission: 01/01/2024 9:17 PM; Length of stay: 0 days THE HOSPITALIST TEAM PREFERS TO USE [employer] CHAT FOR COMMUNICATION 7AM-7PM. IF I DO NOT RESPOND WITHIN 15 MINUTES, PLEASE PAGE ME/CALL THROUGH THE GRIPPER ATTACHER. FROM 7PM-7AM, PLEASE PAGE [phone](COVR) Code Status: Full Code Barriers to Discharge: [...] 1.66 01/02/2024 Lab Results Component Value Date [id number] 148 (L) 01/03/2024 Imaging ECG 12 lead Atrial-paced rhythm Right axis deviation Pulmonary disease pattern Abnormal ECG When compared with ECG of 30-MAR-2020 12:22, Electronic atrial pacemaker has replaced Sinus rhythm Vent. rate has increased BY 26 BPM QRS duration has decreased Nonspecific T wave abn (more content not included)... [facility] 01-03-2024 Note Physical Therapy Mckenzie wright Patient Name: Emigdio Apodaca Today's Date: 01/03/2024 Admit Date: 01/01/2024 01/03/24 [...] facilitate returning to/exceedi (more content not included)... [facility] 01-03-2024 Note Adult Nutrition Asse ssment: Name: Emigdio Apodaca Date: 1965 Date of Visit: 01/03/24 Admission Dx: Dizziness [R42] Nausea and vomiting, unspecified vomiting type [R11.2] Reason for assessment: high risk and MD referral HR: po intake, BMI MD Consult: underweight Information obtained from: patient, medical record, and nursing Past Medical History: Diagnosis Date Abnormal ECG COPD (chronic obstructive pulmonary disease) ([facility]) Hyperlipidemia Current Medications: buPROPion XL, 300 mg, [...] Assessment: Denies issues swallowing , swallow screen 4/. -Mouth: Missing teeth - avoids some items 2/2 difficulty chewing such as tough meats. She does consume ground meats and other sources of protein (yogurt, cottage cheese). Pt would like to remain on regular diet. -Abdominal Assessment: Denies any current N/V/C/D. 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 Last BM and emesis were 4/ per [...] emesis and dizziness for past 2 weeks scales inspector. Because of these symptoms, her appetite has [...] based on: actual body weight Calorie needs: 3826-9161 kcals/day based on Equation: 28-32 kcal/kg MSJ [...] loss, reduced energ (more content not included)... [facility] 01-03-2024 Note Hospital Medicine Daily Progress Note - 01/03/2024 9:20 AM; Room: 4179/4179-01 Admission: 01/01/2024 9:17 PM; Length of stay: 0 days THE HOSPITALIST TEAM PREFERS TO USE [employer] CHAT FOR COMMUNICATION 7AM-7PM. IF I DO NOT RESPOND WITHIN 15 MINUTES, PLEASE PAGE ME/CALL THROUGH THE GRIPPER ATTACHER. FROM 7PM-7AM, PLEASE PAGE [phone](COVR) Code Status: Full Code Barriers to Discharge: [...] 25 mg as needed for dizziness and joqr-jda-luuqzkd Tylenol as needed for headaches. -Patient scheduled [...] 1.66 01/02/2024 Lab Results Component Value Date [id number] 148 (L) 01/03/2024 Imaging ECG 12 lead [...] home OT Discharge Recommendations: Home Signed Sara Macdonald, [facility] Medicine 01/03/2024 9:20 AM [facility] 01-03-2024 Note Occupational Therapy Occupational Therapy Evaluation Patient Name: Emigdio Apodaca : 1965 Today's Date: 01/03/2024 Discharge Recommendation: [...] RN approved pt for OOB activity this date and pt agreeable. Time In: 0807 Time Out: 08 General Subjective: Pt pleasant and cooperativ Family/Caregiver [...] Level of Function Prior Function Level of [place]: Independent with ADLs and functional transfers, Independent [...] Assist/Contact Guard/Supervision) Taking (more content not included)... [facility] 01-02-2024 Note 01/02/24 1201 Admission Assessment Questions [...] Discharge? No Does the patient have a human services case manager assigned to them through their insurance? [...] to send link and activate MyChart? No [facility] 01-02-2024 Note 01/02/24 0931 Referral Data Referral Source fast foods worker Referral Reason Psychosocial assessment Patient Information Primary Caregiver Self Activities of Daily Living Assistive Device Not applicable Living Arrangement (Current/Prior to Hospitalization) Private residence Behavior Oriented Communication Talks;Understands speaking;Understands Bel[place]ian Discharge Planning Support Systems Children Patient's goal for discharge home Patient resides at home with her two adult children, ages 29 and 33. She relies on friends or other family members for transportation as no one in the family has their license. Denies financial hardship. Denies further social work needs. [facility] 01-02-2024 Note . Hospital Medicine History and Physical 01/02/2024 12:47 AM THE HOSPITALIST TEAM PREFERS TO USE [employer] FOR COMMUNICATION 7AM-7PM. IF I DO NOT RESPOND WITHIN 15 MINUTES, PLEASE PAGE ME/CALL THROUGH THE GRIPPER ATTACHER. FROM 7PM-7AM, PLEASE PAGE [phone](COVR) Chief Complaint Chief Complaint Patient presents with Dizziness Vomiting History of Present Illness Emigdio Apodaca is an 58 y.o. female who came [...] exertion) 05/03/2023 COPD (chronic obstructive pulmonary disease) ([facility]/HCC) Pacemaker Hyperlipidemia Abdominal pain 10/13/2014 Constipated 10/13/2014 [...] T4 -Continued levo (more content not included)... [facility] 10-24-2023 Note [facility] Electrophysiology Consult Note Reason [...] and has not been seen by any spray operator since pacemaker placement in 2019 ECG 01/02/23 inverted twaves in leads 2/3/avf PMH: Past Medical History: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
[2024-06-19 21:11] VITALS: BP 134/100; PULSE 73; TEMP 36.7; O2SAT 95; BMI 19.7
--- NOTE | 2024-06-19 21:28 | XR_ITS ---
The [place] [id number] Patient Name: EMIGDIO ELI MRN: [id number] date: 1965 Sex: F Assigned Patient Location: ER Current Patient Location: [facility] Accession/Order Number: [id number] Exam Date: 06/19/2024 21:55 Report Date: 06/19/2024 23:18 At the request of: KALEY MARKER Procedure: XR shoulder LT min 2V Examination:XR hand LT min 3V, XR shoulder LT min 2V, XR knee RT 3V INDICATION:fall, 5th metatarsal pain COMPARISON:None. TECHNIQUE:3 views of the left hand, 3 views of the right knee and 3 views of the left shoulder FINDINGS: Left hand: The bones are osteopenic. There is cortical step-off deformity in the base of the fourth metacarpal bone concerning for an acute fracture. No additional acute fractures are present elsewhere in the left hand. Mild degeneration is present throughout the interphalangeal joints. There is soft tissue swelling of the left hand. Right knee: There is a faint lucency in the patella on the lateral projection which is concerning for an acute nondisplaced patellar fracture. No acute fractures are appreciated elsewhere in the right knee. There is soft tissue swelling and a joint effusion. Left shoulder: No acute fracture or dislocations are present. Mild to moderate hypertrophic changes are present in the acromioclavicular joint. There is mild degeneration along the inferior glenohumeral joint. Soft tissues are unremarkable. XR/XR shoulder LT min 2V IMPRESSION: 1. Acute fracture in the base of the fourth metacarpal bone. 2. Findings concerning for a nondisplaced acute patellar fracture. 3. No acute fracture is appreciated in the left shoulder. Electronically authenticated by: TAMAR BERUMEN Date: 06/19/2024 23:18
--- NOTE | 2024-06-19 21:28 | XR_ITS ---
The [place] [id number] Patient Name: EMIGDIO ELI MRN: [id number] date: 1965 Sex: F Assigned Patient Location: ER Current Patient Location: [facility] Accession/Order Number: [id number] Exam Date: 06/19/2024 21:55 Report Date: 06/19/2024 23:18 At the request of: KALEY MARKER Procedure: XR hand LT min 3V Examination:XR hand LT min 3V, XR shoulder LT min 2V, XR knee RT 3V INDICATION:fall, 5th metatarsal pain COMPARISON:None. TECHNIQUE:3 views of the left hand, 3 views of the right knee and 3 views of the left shoulder FINDINGS: Left hand: The bones are osteopenic. There is cortical step-off deformity in the base of the fourth metacarpal bone concerning for an acute fracture. No additional acute fractures are present elsewhere in the left hand. Mild degeneration is present throughout the interphalangeal joints. There is soft tissue swelling of the left hand. Right knee: There is a faint lucency in the patella on the lateral projection which is concerning for an acute nondisplaced patellar fracture. No acute fractures are appreciated elsewhere in the right knee. There is soft tissue swelling and a joint effusion. Left shoulder: No acute fracture or dislocations are present. Mild to moderate hypertrophic changes are present in the acromioclavicular joint. There is mild degeneration along the inferior glenohumeral joint. Soft tissues are unremarkable. XR/XR hand LT min 3V IMPRESSION: 1. Acute fracture in the base of the fourth metacarpal bone. 2. Findings concerning for a nondisplaced acute patellar fracture. 3. No acute fracture is appreciated in the left shoulder. Electronically authenticated by: TAMAR BERUMEN Date: 06/19/2024 23:18
--- NOTE | 2024-06-19 21:28 | XR_ITS ---
The [place] [id number] Patient Name: EMIGDIO ELI MRN: [id number] date: 1965 Sex: F Assigned Patient Location: ER Current Patient Location: [facility] Accession/Order Number: [id number] Exam Date: 06/19/2024 21:55 Report Date: 06/19/2024 23:18 At the request of: KALEY MARKER Procedure: XR knee RT 3V Examination:XR hand LT min 3V, XR shoulder LT min 2V, XR knee RT 3V INDICATION:fall, 5th metatarsal pain COMPARISON:None. TECHNIQUE:3 views of the left hand, 3 views of the right knee and 3 views of the left shoulder FINDINGS: Left hand: The bones are osteopenic. There is cortical step-off deformity in the base of the fourth metacarpal bone concerning for an acute fracture. No additional acute fractures are present elsewhere in the left hand. Mild degeneration is present throughout the interphalangeal joints. There is soft tissue swelling of the left hand. Right knee: There is a faint lucency in the patella on the lateral projection which is concerning for an acute nondisplaced patellar fracture. No acute fractures are appreciated elsewhere in the right knee. There is soft tissue swelling and a joint effusion. Left shoulder: No acute fracture or dislocations are present. Mild to moderate hypertrophic changes are present in the acromioclavicular joint. There is mild degeneration along the inferior glenohumeral joint. Soft tissues are unremarkable. XR/XR knee RT 3V IMPRESSION: 1. Acute fracture in the base of the fourth metacarpal bone. 2. Findings concerning for a nondisplaced acute patellar fracture. 3. No acute fracture is appreciated in the left shoulder. Electronically authenticated by: TAMAR BERUMEN Date: 06/19/2024 23:18
--- NOTE | 2024-06-19 21:28 | XR_ITS ---
The [address] [address] Patient Name: EMIGDIO ELI MRN: [id number] date: 1965 Sex: F Assigned Patient Location: ER Current Patient Location: ED.MAIN Accession/Order Number: [id number] Exam Date: 06/19/2024 21:55 Report Date: 06/19/2024 23:06 At the request of: KALEY WAY Procedure: XR chest 1V CXR HISTORY: Shortness of breath. COMPARISON: 02/20/2024 TECHNIQUE: 1 view of the chest submitted for review. FINDINGS: Lines and tubes: Cardiac pacer demonstrated. There is a calcified granuloma which is stable in the right midlung field. Lungs are hyperaerated. No acute infiltrate. No effusion. The cardiac silhouette measures within normal. Pulmonary vascularity is unremarkable. Osseous structures are normal for age. XR/XR chest 1V IMPRESSION: No plain film evidence for acute cardiopulmonary disease. Electronically authenticated by: TYLER SOL Date: 06/19/2024 23:06
--- NOTE | 2024-06-19 21:30 | ED_ITS ---
HPI HPI - Fall General Chief Complaint: Fall Stated Complaint: Fall Time Seen by Provider: 06/19/24 21:05 Source: patient Mode of arrival: Wheelchair Limitations: no limitations History of Present Illness HPI Narrative: This 58-year-old female who is right-hand dominant presents emergency department for evaluation of left hand pain, left shoulder pain and right knee pain. The patient tripped over a sidewalk and fell landing on her right knee. She then fell onto her chest and injured her left shoulder. She denies striking her head. She has no neck or back pain. She was ambulatory after the fall and brought to the emergency department by her partner. She does not have any chest pain or shortness of breath. She did not lose consciousness. She states this was a mechanical fall. She did not become dizzy or syncopal. Related Data Home Medications ?Medication ?Instructions ?Recorded ?Confirmed bupropion HCl 300 mg 24 hr tablet, 300 mg PO DAILY 09/25/23 12/27/23 extended release cholecalciferol (vitamin D3) 50 50 mcg PO DAILY 09/25/23 12/27/23 mcg (2,000 unit) capsule citalopram 20 mg tablet 20 mg PO DAILY 09/25/23 12/27/23 lamotrigine 25 mg tablet 50 mg PO BEDTIME 09/25/23 12/27/23 lansoprazole 30 mg capsule,delayed 30 mg PO DAILY 09/25/23 12/27/23 release levothyroxine 125 mcg tablet 125 mcg PO DAILY 09/25/23 12/27/23 simvastatin 20 mg tablet 20 mg PO DAILY 09/25/23 12/27/23 docusate sodium 100 mg capsule 100 mg PO PRN 12/22/23 12/27/23 (Col-Rite) loratadine 10 mg tablet (Allergy 10 mg PO DAILY 12/22/23 12/27/23 Relief (loratadine)) Previous Rx's ?Medication ?Instructions ?Recorded ciprofloxacin HCl 500 mg tablet 500 mg PO Q12H #14 tabs 12/27/23 (Cipro) metronidazole 500 mg tablet 500 mg PO Q8H 7 days #21 tabs 12/27/23 ondansetron 4 mg disintegrating 4 mg PO Q6H PRN nausea and 12/27/23 tablet vomiting #20 tabs sucralfate 1 gram tablet 1 g PO ACHS #120 tabs 12/27/23 metoclopramide HCl 10 mg tablet 10 mg PO ACHS 7 days #28 tabs 12/28/23 (Reglan) Allergies Allergy/AdvReac Type Severity Reaction Status Date / Time codeine Allergy Mild Vomiting Verified 12/22/23 17:31 oxycodone [From Percocet] Allergy Mild Vomiting Verified 12/22/23 17:31 promethazine Allergy Mild Agitated Verified 12/22/23 17:31 Sulfa (Sulfonamide Allergy Mild Vomiting Verified 12/22/23 17:31 Antibiotics) hydromorphone [From Dilaudid] AdvReac Mild Rash Verified 12/22/23 17:31 prochlorperazine AdvReac Mild Unknown Verified 06/19/24 21:14 [From Compazine] Opioid HPI Opioid Management Most Recent Pain and Opioid Data: Last Pain Scale 8 06/19/24 22:15 Last ORT Total Score 7 12/27/23 23:04 Last ORT Risk Category Moderate Risk 12/27/23 23:04 Review of Systems ROS Status of ROS 10 or more systems reviewed and unremark able except as noted in history and below [facility] Medical History (Updated 06/19/24 @ 22:26 by Violetta Jones MD) Hypothyroid ?E03.9 - Hypothyroidism, unspecified (ICD-10) Esophagitis ?K20.90 - Esophagitis, unspecified without bleeding (ICD-10) Pancolitis ?K51.00 - Ulcerative (chronic) pancolitis without complications (ICD-10) Pulmonary hypertension ?I27.20 - Pulmonary hypertension, unspecified (ICD-10) Cholecystitis ?K81.9 - Cholecystitis, unspecified (ICD-10) Depression ?F32.A - Depression, unspecified (ICD-10) On home O2 ?Z99.81 - Dependence on supplemental oxygen (ICD-10) Hyperthyroidism ?E05.90 - Thyrotoxicosis, unspecified without thyrotoxic crisis or storm (ICD-10) Scoliosis ?M41.9 - Scoliosis, unspecified (ICD-10) Emphysema lung ?J43.9 - Emphysema, unspecified (ICD-10) Nausea & vomiting ?R11.2 - Nausea with vomiting, unspecified (ICD-10) Pacemaker ?Z95.0 - Presence of cardiac pacemaker (ICD-10) COPD (chronic obstructive pulmonary disease) ?J44.9 - Chronic obstructive pulmonary disease, unspecified (ICD-10) Surgical History History of tonsillectomy ?Z90.89 - Acquired absence of other organs (ICD-10) H/O right wrist surgery ?Z98.890 - Other specified postprocedural states (ICD-10) H/O colectomy ?Z90.49 - Acquired absence of other specified parts of digestive tract (ICD- 10) Family History Mother Family history of COPD (chronic obstructive pulmonary disease) Grandmother Family history of cancer Sister Family history of diabetes mellitus Father Family history of myocardial infarction Social History (Updated 12/27/23 @ 23:45 by Meghana Lo) Within the past year, how often did you have a drink containing alcohol: never Within the past year, how often did you have six or more drinks on one occasion: never Score interpretation: A score less than 3 is consistent with normal alcohol consumption. 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 Known occupational exposures/hazards: No Highest level of school completed/degree received: 10th grade Do you want help with school or training: No Are you now , , , , never or living with a partner: In a typical week, how many times do you talk on the telephone with family, friends, or neighbors: 3 or more times per week How often do you get together with friends or relatives: 3 or more times per week How often do you attend synagogue or sabianism services: 4 or more times per year Do you belong to any clubs or organizations such as synagogue groups unions, fraternal or athletic groups, or school groups: yes Total score: 3 Score interpretation: A score of greater than or equal to 2 indicates the lowest level of social isolation. Little interest or pleasure in doing things: not at all Feeling down, depressed, or hopeless: not at all Feel stressed/tense/nervous/anxious/difficulty sleeping: to some extent Life stressors: unknown source of stress Due to disability, difficulty making decisions: No Do you think of yourself as: bisexual Gender Identity: female Exam Narrative Exam Narrative: Vital signs and Nursing Notes reviewed: Vital signs reviewed, the patient is afebrile with a normal pulse, blood pressure is elevated at 134/100, she is not hypoxic with pulse ox of 95% on room air General: Awake, alert, oriented, thin adult female, she is uncomfortable mostly due to right knee and left hand pain, GCS 15, no respiratory distress HEENT: Normocephalic atraumatic, mucous membranes are moist and pink, eyes are clear, normal conjunctiva, vision is grossly intact Neck: Supple, no midline bony vertebral tenderness or step-off Chest: Lungs are clear to auscultation with good air entry, there is no wheezing rhonchi or rales appreciated no accessory muscle use, patient is speaking in complete sentences-no chest wall tenderness to palpation CVS: Regular rate and rhythm S1-S2, no murmurs rubs or gallops, pulses are brisk and equal bilaterally ABD: Soft, nondistended, nontender, no rebound guarding or rigidity, stable pelvic rock Extremities: There is an approximately 2 cm abrasion to the left anterior shoulder. Patient has full range of motion of the left shoulder. There is no humerus elbow forearm or wrist tenderness. She has tenderness to the left fifth metacarpal. There is no bony deformity abrasion or other notable abnormality to the hand. She refuses range of motion due to pain. There is swelling and an abrasion over the right knee with an effusion proximal to the patella. There is no hip tenderness or lower leg tenderness including feet and ankles. Skin: Normal in appearance with abrasion to the left anterior shoulder and right knee as described above Neuro: No focal deficits Constitutional Vital Signs, click to edit/add: Last Vital Signs Temp 98.0 F 06/19/24 21:11 Pulse 73 06/19/24 21:11 Resp 18 06/19/24 21:11 BP 134/100 H 06/19/24 21:11 Pulse Ox 95 06/19/24 21:11 O2 Del Method Room Air 06/19/24 21:11 Course Vital Signs Vital signs: Vital Signs Temperature 98.0 F 06/19/24 21:11 Pulse Rate 73 06/19/24 21:11 Respiratory Rate 18 06/19/24 21:11 Blood Pressure 134/100 H 06/19/24 21:11 Pulse Oximetry 95 06/19/24 21:11 Oxygen Delivery Method Room Air 06/19/24 21:11 Temperature 98.0 F 06/19/24 21:11 Pulse Rate 73 06/19/24 21:11 Respiratory Rate 18 06/19/24 21:11 Blood Pressure 134/100 H 06/19/24 21:11 Pulse Oximetry 95 06/19/24 21:11 Oxygen Delivery Method Room Air 06/19/24 21:11 MDM - Fall MDM Narrative Medical decision making narrative: This 58-year-old female who is right-hand dominant presents for evaluation of right knee, left hand and left shoulder pain after falling on the sidewalk. She was not dizzy or syncopal. She has an abrasion over her left shoulder. Left shoulder x-ray shows no acute fracture dislocation or other notable abnormality. She is tender over the fifth metacarpal on the left hand with no notable deformity. X-ray of the left hand is negative for acute fracture. She also has swelling tenderness and effusion at the suprapatellar aspect of the right knee. The right knee x-ray is negative for fracture dislocation or other notable abnormalities. It does show some soft tissue swelling in keeping with her effusion. She was medicated emergency department with a dose of [place] and Zofran. She will be discharged home with [place] to use as needed until she can hand picker her prescriptions for [place] and ibuprofen. She is not on blood thinners. She is otherwise hemodynamically stable for discharge. Discharge Plan Discharge Chief Complaint: Fall Clinical Impression: Fall from standing, Contusion of hand, left, Contusion of left shoulder, Contusion of knee, Effusion of knee joint right Patient Disposition: Home, Self-Care Time of Disposition Decision: 22:26 Condition: Good Prescriptions / Home Meds: No Action bupropion HCl 300 mg tablet extended release 24 hr 300 mg PO DAILY cholecalciferol (vitamin D3) 50 mcg (2,000 unit) capsule 50 mcg PO DAILY citalopram 20 mg tablet 20 mg PO DAILY lamotrigine 25 mg tablet 50 mg PO BEDTIME lansoprazole 30 mg capsule,delayed release(DR/EC) 30 mg PO DAILY levothyroxine 125 mcg tablet 125 mcg PO DAILY simvastatin 20 mg tablet 20 mg PO DAILY loratadine [Allergy Relief (loratadine)] 10 mg tablet 10 mg PO DAILY docusate sodium [Col-Rite] 100 mg capsule 100 mg PO PRN sucralfate 1 gram Tablet 1 g PO ACHS Qty: 120 11RF Hold Instructions: per nursing note: patient DC'd Patient Comments: pt. was dc'd with these scripts has not started ciprofloxacin HCl [Cipro] 500 mg tablet 500 mg PO Q12H Qty: 14 0RF Hold Instructions: per nursing note: patient DC'd Patient Comments: pt. was dc'd with these scripts has not started metronidazole 500 mg tablet 500 mg PO Q8H 7 Days Qty: 21 0RF Hold Instructions: per nursing note: patient DC'd Patient Comments: pt. was dc'd with these scripts has not started ondansetron 4 mg tablet,disintegrating 4 mg PO Q6H PRN (Reason: nausea and vomiting) Qty: 20 3RF Hold Instructions: per nursing note: patient DC'd Patient Comments: pt. was dc'd with these scripts has not started metoclopramide HCl [Reglan] 10 mg tablet 10 mg PO ACHS 7 Days Qty: 28 0RF Print Language: Syriac Instructions: Contusion in Adults (ED), Swollen Knee Joint (ED), Fall Prevention (ED) Referrals: Paulo Turner MD [Primary Care Provider] - 1 week
[2024-06-19] MEDS: HYDROCODONE/ACET 5-325 MG TABLET 1 TAB PO (22:15)
[2024-06-19] MEDS: ONDANSETRON 4 MG RAPDIS TABLET SL (22:15)
[2024-06-19] MEDS: HYDROCODONE/ACET 5-325 MG TABLET 2 TAB PO (22:37)
--- NOTE | 2024-06-19 22:39 | PC.NURSE ---
Pulses present. Edema to right knee. Servando applied to hand and knee per Dr Marker
== END 2024-06-19 23:30 | disposition home or self-care (01) ==
PROVIDERS: Emergency Provider Emergency Medicine; PCP Family Medicine
DX: S40.012A Contusion of left shoulder, initial encounter (principal); S60.222A Contusion of left hand, initial encounter; S80.01XA Contusion of right knee, initial encounter; W01.10XA Fall on same level from slipping, tripping and stumbling with subsequent striking against unspecified object, initial encounter
CPT/HCPCS: 71045; 73030; 73130; 73562; 99284; Q0162

== ENCOUNTER 2024-06-27 11:34 | Outpatient (OUT) | payer OTHER, SELFPAY ==
--- OUTSIDE RECORDS SUMMARY | 2024-06-27 11:40 | XMS_ITS | CCD ---
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 comfort The clinical goals for the shift include comfort, stability and safety Normal [facility] BASIC METABOLIC PANELon 040 Anion gap [Moles/Vol] 8 mmol/L Normal 7-20 [facility] Comment on above: Performed By: #### L [id number] #### [facility] ([facility]) [address] [place] [address] Calcium [Mass/Vol] 8.6 mg/dL Normal 8.6-10.3 [facility] Comment on above: Performed By: #### L [id number] #### [facility] ([facility]) [address] [place] [address] Chloride [Moles/Vol] 109 mmol/L High 98-107 [facility] Comment on above: Performed By: #### L [id number] #### [facility] ([facility]) [address] [place] [address] CO2 [Moles/Vol] 28 mmol/L Normal 21-31 [facility] Comment on above: Performed By: #### L [id number] #### [facility] ([facility]) [address] [place] [address] Creatinine [Mass/Vol] 0.82 mg/dL Normal 0.60-1.20 [facility] Comment on above: Performed By: #### L [id number] #### [facility] ([facility]) [address] [place] [address] GLOMERULAR FILTRATION RATE ML/MIN/1.73 SQ M.PREDICTED 82.3 mL/min/1.73m*2 Normal >60.0 [facility] Comment on above: Result Comment: [facility]???s estimated glomerular filtration rate (eGFR) will [...] group of individuals. Performed By: #### L [id number] #### [facility] ([facility]) [address] [place] [address] Glucose [Mass/Vol] 96 mg/dL Normal 70-100 [facility] Comment on above: Performed By: #### L [id number] #### [facility] ([facility]) [address] [place] [address] Potassium [Moles/Vol] 3.6 mmol/L Normal 3.5-5.1 [facility] Comment on above: Performed By: #### L [id number] #### [facility] ([facility]) [address] [place] [address] Sodium [Moles/Vol] 141 mmol/L Normal 136-145 [facility] Comment on above: Performed By: #### L [id number] #### [facility] ([facility]) [address] [place] [address] Urea nitrogen [Mass/Vol] 7 mg/dL Normal 7-25 [facility] Comment on above: Performed By: #### L [id number] #### [facility] ([facility]) [address] [place] [address] UREA NITROGEN/CREATININE (MASS RATIO) IN SER/PLAS 8.5 Normal [facility] Comment on above: Performed By: #### L [id number] #### [facility] ([facility]) [address] [place] [address] CBCon 01-02-2024 Erythrocyte distribution width (RBC) [Ratio] 13.8 % Normal 11.5-15.0 [facility] Comment on above: Performed By: #### L [id number] #### [facility] ([facility]) [address] [place] [address] ERYTHROCYTE MEAN CORPUSCULAR HEMOGLOBIN CONCENTRATION (G/DL) BY AUTOMATED 31.6 g/dL Low 32.0-35.0 [facility] Comment on above: Performed By: #### L [id number] #### [facility] ([facility]) [address] [place] [address] Hematocrit (Bld) [Volume fraction] 44.0 % Normal 36.0-48.0 [facility] Comment on above: Performed By: #### L [id number] #### [facility] ([facility]) [address] [place] [address] Hemoglobin (Bld) [Mass/Vol] 13.9 g/dL Normal 12.0-15.0 [facility] Comment on above: Performed By: #### L [id number] #### [facility] ([facility]) [address] [place] [address] MCH (RBC) [Entitic mass] 29.0 pg Normal 27.0-33.0 [facility] Comment on above: Performed By: #### L [id number] #### [facility] ([facility]) [address] [place] [address] MCV (RBC) [Entitic vol] 91.9 fL Normal 82.0-98.0 [facility] Comment on above: Performed By: #### L [id number] #### [facility] ([facility]) [address] [address] PLATELETS (10*3/UL) IN BLOOD AUTOMATED COUNT 201 10*3/uL Normal 150-400 [facility] Comment on above: Performed By: #### L [id number] #### [facility] ([facility]) [address] [place] [address] RBC (Bld) [#/Vol] 4.79 10*6/uL Normal 3.80-5.00 [facility] Comment on above: Performed By: #### L [id number] #### [facility] ([facility]) [address] [place] [address] WBC (Bld) [#/Vol] 3.38 10*3/uL Low 4.00-10.60 [facility] Comment on above: Performed By: #### L [id number] #### [facility] ([facility]) [address] [place] [address] CONSULTon 01-02-2024 CONSULT Reason For Consult consatnt dizziness Referring Provider: Pam Way MD History Of Present Illness Emigdio Eli is a 58 y.o. female who presented to [facility] emergency department with complaints dizziness for [...] by Dr. Tony Amaya on 12/29/2023 in [place] due to this persistent dizziness. She was [...] -- -- 91 -- -- -- -- 01/01/240 -- -- -- 73 -- 96 % -- -- 01/01/24 2205 116/76 -- -- 74 -- -- -- -- 01/01/24 2135 137/90 -- -- 80 -- 95 % -- -- 01/01/241855 -- 36.9 ???C (98.4 ???F) Oral -- -- -- -- -- 01/01/241852 147/78 -- -- 80 16 91 % [...] intact. Crani (more content not included)... Normal [facility] EDPROVon 01-02-2024 EDPROV HPI Chief Complaint [...] Glucose, Urine Negative Bilirubin, Urine Negative Specific [place], Urine 1.041 (*) Ketones, Urine Trace (*) [...] Procedure Abnormality Status --------- ------ CBC auto differential[[id number]] Abnormal Final result Please view results for [...] Course as of 01/02/24 2309 MonJan 01, 2024 2134 Per cardiology note 10/24/23: Stress test 09/2023 was negative for ischemia TTE 09/06/23 normal LVEF 60%, mildly elevated RVSP, mild TR [JS] 2300 Pt was signed out to ED attending (Dr Bautista) at shift change. All labs (except CBC) and imaging (except CXR) pending. Pt will likely need admi (more content not included)... Normal [facility] T4, FREEon 01-02-2024 THYROXINE (T4) FREE (NG/DL) IN SER/PLAS 1.66 ng/dL Normal 0.71-1.85 [facility] Comment on above: Performed By: #### L [id number] ####[facility] ([facility])[address] [place] [address] TSH3 REFLEX TO FT4on 024 THYROTROPIN (MIU/L) IN SER/PLAS BY DETECTION LIMIT <= 0.05 MIU/L 0.01 mIU/L Low 0.34-5.60 [facility] Comment on above: Performed By: #### L [id number] #### [facility] ([facility]) [address] [place] [address] CBC WITH AUTO DIFFERENTIALon 01-01-2024 Basophils (Bld) [#/Vol] 0.02 10*3/uL Normal 0.00-0.20 [facility] Comment on above: Performed By: #### L [id number] #### [facility] ([facility]) [address] [place] [address] Basophils/100 WBC (Bld) 0.6 % Normal 0.0-1.0 [facility] Comment on above: Performed By: #### L [id number] #### [facility] ([facility]) [address] [place] [address] Eosinophils (Bld) [#/Vol] 0.09 10*3/uL Normal 0.00-0.50 [facility] Comment on above: Performed By: #### L [id number] #### [facility] ([facility]) [address] [place] [address] Eosinophils/100 WBC (Bld) 2.6 % Normal 0.0-6.0 [facility] Comment on above: Performed By: #### L [id number] #### [facility] ([facility]) [address] [place] [address] Erythrocyte distribution width (RBC) [Ratio] 13.6 % Normal 11.5-15.0 [facility] Comment on above: Performed By: #### L [id number] #### [facility] ([facility]) [address] [place] [address] ERYTHROCYTE MEAN CORPUSCULAR HEMOGLOBIN CONCENTRATION (G/DL) BY AUTOMATED 33.9 g/dL Normal 32.0-35.0 [facility] Comment on above: Performed By: #### L [id number] #### [facility] ([facility]) [address] [place] [address] Hematocrit (Bld) [Volume fraction] 42.2 % Normal 36.0-48.0 [facility] Comment on above: Performed By: #### L [id number] #### [facility] ([facility]) [address] [place] [address] Hemoglobin (Bld) [Mass/Vol] 14.3 g/dL Normal 12.0-15.0 [facility] Comment on above: Performed By: #### L [id number] #### [facility] ([facility]) [address] [place] [address] Immature granulocytes (Bld) [#/Vol] 0.02 10*3/uL Normal 0.00-0.20 [facility] Comment on above: Performed By: #### L [id number] #### [facility] ([facility]) [address] [place] [address] Immature granulocytes/100 WBC (Bld) 0.6 % Normal 0.0-1.0 [facility] Comment on above: Performed By: #### L [id number] #### [facility] ([facility]) [address] [place] [address] Lymphocytes (Bld) [#/Vol] 1.11 10*3/uL Low 1.20-4.00 [facility] Comment on above: Performed By: #### L [id number] #### [facility] ([facility]) [address] [place] [address] Lymphocytes/100 WBC (Bld) 32.1 % Normal 20.0-45.0 [facility] Comment on above: Performed By: #### L [id number] #### [facility] ([facility]) [address] [place] [address] MCH (RBC) [Entitic mass] 29.0 pg Normal 27.0-33.0 [facility] Comment on above: Performed By: #### L [id number] #### [facility] ([facility]) [address] [address] MCV (RBC) [Entitic vol] 85.6 fL Normal 82.0-98.0 [facility] Comment on above: Performed By: #### L [id number] #### [facility] ([facility]) [address] [address] Monocytes (Bld) [#/Vol] 0.28 10*3/uL Normal 0.10-1.00 [facility] Comment on above: Performed By: #### L [id number] #### [facility] ([facility]) [address] [place] [address] Monocytes/100 WBC (Bld) 8.1 % Normal 5.0-12.0 [facility] Comment on above: Performed By: #### L [id number] #### [facility] ([facility]) [address] [place] [address] Neutrophils (Bld) [#/Vol] 1.94 10*3/uL Normal 1.60-7.60 [facility] Comment on above: Performed By: #### L [id number] #### [facility] ([facility]) [address] [place] [address] Neutrophils/100 WBC (Bld) 56.0 % Normal 40.0-72.0 [facility] Comment on above: Performed By: #### L [id number] #### [facility] ([facility]) [address] [place] [address] NRBC (PER 100 WBCS) BY AUTOMATED COUNT 0.0 % Normal 0 [facility] Comment on above: Performed By: #### L [id number] #### [facility] ([facility]) [address] [place] [address] PLATELETS (10*3/UL) IN BLOOD AUTOMATED COUNT 222 10*3/uL Normal 150-400 [facility] Comment on above: Performed By: #### L [id number] #### [facility] ([facility]) [address] [place] [address] RBC (Bld) [#/Vol] 4.93 10*6/uL Normal 3.80-5.00 [facility] Comment on above: Performed By: #### L [id number] #### [facility] ([facility]) [address] [place] [address] WBC (Bld) [#/Vol] 3.46 10*3/uL Low 4.00-10.60 [facility] Comment on above: Performed By: #### L [id number] #### [facility] ([facility]) [address] [place] [address] COMPREHENSIVE METABOLIC PANE Balwinder 01-01-2024 Albumin [Mass/Vol] 4.1 g/dL Normal 3.5-5.7 [facility] Comment on above: Performed By: #### L [id number] #### [facility] ([facility]) [address] [place] [address] ALP [Catalytic activity/Vol] 81 U/L Normal 34-104 [facility] Comment on above: Performed By: #### L [id number] #### [facility] ([facility]) [address] [place] [address] ALT [Catalytic activity/Vol] 10 U/L Normal 7-52 [facility] Comment on above: Performed By: #### L [id number] #### [facility] ([facility]) [address] [place] [address] Anion gap [Moles/Vol] 14 mmol/L Normal 7-20 [facility] Comment on above: Performed By: #### L [id number] #### [facility] ([facility]) [address] [place] [address] AST [Catalytic activity/Vol] 20 U/L Normal 13-39 [facility] Comment on above: Performed By: #### L [id number] #### [facility] ([facility]) [address] [place] [address] Bilirubin [Mass/Vol] 0.5 mg/dL Normal 0.3-1.0 [facility] Comment on above: Performed By: #### L [id number] #### [facility] ([facility]) [address] [place] [address] Calcium [Mass/Vol] 9.6 mg/dL Normal 8.6-10.3 [facility] Comment on above: Performed By: #### L [id number] #### [facility] ([facility]) [address] [place] [address] Chloride [Moles/Vol] 106 mmol/L Normal 98-107 [facility] Comment on above: Performed By: #### L [id number] #### [facility] ([facility]) [address] [place] [address] CO2 [Moles/Vol] 24 mmol/L Normal 21-31 [facility] Comment on above: Performed By: #### L [id number] #### [facility] ([facility]) [address] [address] Creatinine [Mass/Vol] 0.82 mg/dL Normal 0.60-1.20 [facility] Comment on above: Performed By: #### L [id number] #### [facility] ([facility]) [address] [place] [address] GLOMERULAR FILTRATION RATE ML/MIN/1.73 SQ M.PREDICTED 82.3 mL/min/1.73m*2 Normal >60.0 [facility] Comment on above: Result Comment: [facility]???s estimated glomerular filtration rate (eGFR) will [...] group of individuals. Performed By: #### L [id number] #### [facility] ([facility]) [address] [place] [address] Glucose [Mass/Vol] 86 mg/dL Normal 70-100 [facility] Comment on above: Performed By: #### L [id number] #### [facility] ([facility]) [address] [place] [address] Potassium [Moles/Vol] 3.8 mmol/L Normal 3.5-5.1 [facility] Comment on above: Performed By: #### L [id number] #### [facility] ([facility]) [address] [place] [address] Protein [Mass/Vol] 6.7 g/dL Normal 6.0-8.3 [facility] Comment on above: Performed By: #### L [id number] #### [facility] ([facility]) [address] [place] [address] Sodium [Moles/Vol] 140 mmol/L Normal 136-145 [facility] Comment on above: Performed By: #### L [id number] #### [facility] ([facility]) [address] [place] [address] Urea nitrogen [Mass/Vol] 10 mg/dL Normal 7-25 [facility] Comment on above: Performed By: #### L [id number] #### [facility] ([facility]) [address] [place] [address] UREA NITROGEN/CREATININE (MASS RATIO) IN SER/PLAS 12.2 Normal [facility] Comment on above: Performed By: #### L [id number] #### [facility] ([facility]) [address] [place] [address] CT ABDOMEN PELVIS W IV CONTR Marquita [...] signed: Shari Turner Vldtd Invalid Interpretation Code [facility] CT HEAD WO IV CONTRASTon CT [...] Shari Mahoney. Not Vldtd Invalid Interpretation Code [facility] CTA HEAD W IV CONTRASTon CTA [...] intracranial CT angiogram. Electronically signed: Shari Mahoney. Not Vldtd Invalid Interpretation Code [facility] CTA NECK W IV CONTRASTon CTA [...] cervical carotid arteries. Electronically signed: Shari Mahoney. Yue Vldtd Invalid Interpretation Code [facility] EDNURSon 01-01-2024 EDNURS Pt arrives with avani maldonado to triage, states that pt has been seen at [place] [facility] multiple times for increased dizziness, vomiting, and diarrhea for the past 2 weeks. Pt states that she is suppose to get an MRI of her brain done at [facility] but has not scheduled it yet. Reports multiple falls d/t dizziness. Normal [facility] EDPROVon 01-01-2024 EDPROV [facility] [address] [facility] [id number] EMERGENCY DEPARTMENT ENCOUNTER 01/01/2024 CHIEF COMPLAINT Chief [...] Abnormal ECG, COPD (chronic obstructive pulmonary disease) ([facility]), and Hyperlipidemia. SURGICAL HISTORY has a past [...] Motor functio (more content not included)... Normal [facility] ETHANOLon 01-01-2024 ETHANOL (MG/DL) IN SER/PLAS <10 Normal [facility] Comment on above: Performed By: #### L [id number] ####[facility] ([facility])[address] [place] [address] ETHANOL CALCULATED (%) Normal [facility] Comment on above: Performed By: #### L [id number] ####[facility] ([facility])[address] [place] [address] LACTIC ACID WITH 4 HOUR REFL EXon 01-01-2024 LACTATE (MMOL/L) IN SER/PLAS 0.8 mmol/L Normal 0.5-2.2 [facility] Comment on above: Performed By: #### L [id number] #### [facility] ([facility]) [address] [place] [address] LIPASEon 01-01-2024 LIPASE (U/L) IN SER/PLAS 47 U/L Normal 11-82 [facility] Comment on above: Performed By: #### L [id number] #### [facility] ([facility]) [address] [address] MAGNESIUMon 01-01-2024 Magnesium [Mass/Vol] 2.1 mg/dL Normal 1.9-2.7 [facility] Comment on above: Performed By: #### L [id number] #### [facility] ([facility]) [address] [place] [address] T4, FREEon 01-01-2024 THYROXINE (T4) FREE (NG/DL) IN SER/PLAS 1.44 ng/dL Normal 0.71-1.85 [facility] Comment on above: Performed By: #### L [id number] ####[facility] ([facility])[address] [place] [address] TOXICOLOGY PANEL URINEon AMPHETAMINE+METHAMPHET AMINE SCREEN (PRESENCE) IN URINE Negative Normal Negative [facility] Comment on above: Performed By: #### L [id number] #### [facility] ([facility]) [address] [place] [address] BARBITURATES PRESENCE IN URINE BY SCREEN METHOD Negative Normal Negative [facility] Comment on above: Performed By: #### L [id number] #### [facility] [facility]) [address] [place] [address] Benzodiazepines Ql (U) Negative Normal Negative [facility] Comment on above: Performed By: #### L [id number] #### [facility] ([facility]) [address] [place] [address] CANNABINOID (PRESENCE) IN URINE BY SCREEN METHOD Negative Normal Negative [facility] Comment on above: Performed By: #### L [id number] #### [facility] ([facility]) [address] [place] [address] Cocaine Ql (U) Negative Normal Negative [facility] Comment on above: Performed By: #### L [id number] #### [facility] ([facility]) [address] [place] [address] METHADONE (PRESENCE) IN URINE BY SCREEN METHOD Negative Normal Negative [facility] Comment on above: Performed By: #### L [id number] #### [facility] ([facility]) [address] [place] [address] OPIATES (PRESENCE) IN URINE BY SCREEN METHOD Negative Normal Negative [facility] Comment on above: Performed By: #### L [id number] #### [facility] ([facility]) [address] [place] [address] PHENCYCLIDINE PRESENCE IN URINE BY SCREEN METHOD Negative Normal Negative [facility] Comment on above: Performed By: #### L [id number] #### [facility] ([facility]) [address] [place] [address] Propoxyphene Screen Ql (U) Negative Normal Negative [facility] Comment on above: Performed By: #### L [id number] #### [facility] ([facility]) [address] [place] [address] TRICYCLIC ANTIDEPRESSANTS (PRESENCE) IN URINE Negative Normal Negative [facility] Comment on above: Performed By: #### L [id number] #### [facility] ([facility]) [address] [place] [address] TROPONIN Ion 01-01-2024 Troponin I.cardiac [Mass/Vol] 0.00 ng/mL Normal 0.00-0.04 [facility] Comment on above: Performed By: #### L [id number] ####[facility] ([facility])[address] [place] [address] TSH3 REFLEX TO FT4on 024 THYROTROPIN (MIU/L) IN SER/PLAS BY DETECTION LIMIT <= 0.05 MIU/L 0.02 mIU/L Low 0.34-5.60 [facility] Comment on above: Performed By: #### L [id number] #### [facility] ([facility]) [address] [place] [address] URINALYSIS WITH REFLEX CULTU REon 01-01-2024 BILIRUBIN, TOTAL PRESENCE IN URINE Negative Normal Negative [facility] Comment on above: Order Comment: Micro scopics not performed on urines with negative chemical reactions unless requested on original order. Performed By: #### L [id number] #### [facility] ([facility]) [address] [place] [address] Clarity (U) Clear Normal Clear [facility] Comment on above: Order Comment: Micro scopics not performed on urines with negative chemical reactions unless requested on original order. Performed By: #### L [id number] #### [facility] ([facility]) [address] [place] [address] Color (U) Straw Abnormal Yellow [facility] Comment on above: Order Comment: Micro scopics not performed on urines with negative chemical reactions unless requested on original order. Performed By: #### L [id number] #### [facility] ([facility]) [address] [place] [address] Glucose (U) [Mass/Vol] Negative [facility]: Order Comment: Micro scopics not performed on urines with negative chemical reactions unless requested on original order. Performed By: #### L [id number] #### [facility] ([facility]) [address] [place] [address] HEMOGLOBIN PRESENCE IN URINE Negative Normal Negative [facility] Comment on above: Order Comment: Micro scopics not performed on urines with negative chemical reactions unless requested on original order. Performed By: #### L [id number] #### [facility] ([facility]) [address] [place] [address] Ketones Ql (U) Trace Abnormal Negative [facility] Comment on above: Order Comment: Micro scopics not performed on urines with negative chemical reactions unless requested on original order. Performed By: #### L [id number] #### [facility] ([facility]) [address] [place] [address] LEUKOCYTE ESTERASE PRESENCE IN URINE BY TEST STRIP Negative Normal Negative [facility] Comment on above: Order Comment: Micro scopics not performed on urines with negative chemical reactions unless requested on original order. Performed By: #### L [id number] #### [facility] ([facility]) [address] [place] [address] NITRITE PRESENCE IN URINE Negative Normal Negative [facility] Comment on above: Order Comment: Micro scopics not performed on urines with negative chemical reactions unless requested on original order. Performed By: #### L [id number] #### [facility] ([facility]) [address] [place] [address] pH (U) 6.0 [pH] Normal 5.0-8.0 [facility] Comment on above: Order Comment: Micro scopics not performed on urines with negative chemical reactions unless requested on original order. Performed By: #### L [id number] #### [facility] ([facility]) [address] [place] [address] Protein (U) [Mass/Vol] Negative Normal Negative [facility] Comment on above: Order Comment: Micro scopics not performed on urines with negative chemical reactions unless requested on original order. Performed By: #### L [id number] #### [facility] ([facility]) [address] [place] [address] Specific gravity (U) [Rel density] 1.041 High 1.015-1.02 0 [facility] Comment on above: Order Comment: Micro scopics not performed on urines with negative chemical reactions unless requested on original order. Performed By: #### L [id number] #### [facility] ([facility]) [address] [place] [address] Office Visiton 10-24-2023 Follow-up visit [id number] Edgardo Elie la S 1965 F Date Provider Department Center 10/24/2023 MARI ACHARYA ALECIA [facility] Family History Problem Relation Age of Onset Alzheimer's disease Father Family Status - Relation Status Age at Mother Alive Father Level of Service:09748 OK OFFICE/OUTPATIENT ESTABLISHED MOD MDM 30 MIN Normal [facility] Orders Onlyon 09-01-2023 Orders Only [id number] PaulieEdgardoe la S 1965 F Date Provider Department Center 09/01/2023 MARVIN FAJARDO ALECIA [facility] Family History Problem Relation Age of Onset Alzheimer's disease Father Family Status - Relation Status Age at Mother Alive Father Normal [facility] CBC AUTO DIFFon 01-07-2023 BASO # 0.0 103/ul Normal 0.0-0.1 [facility] Comment on above: Performed By: #### C BC ####[facility] [address] [place] [address]DrChen Rogel Basophils/100 WBC (Bld) 0.3 % Normal 0.2-2.0 [facility] Comment on above: Performed By: #### C BC ####[facility] [address] [place] [address]DrChen Rogel EO # 0.0 103/ul Normal 0.0-0.7 [facility] Comment on above: Performed By: #### C BC ####[facility] [address] [place] [address]Dr. Shahbaz Rogel Eosinophils/100 WBC (Bld) 0.0 % Critically low 0.9-7.0 [facility] Comment on above: Performed By: #### C BC ####[facility] Nkenstobuf[address] [place], [place] [address]Dr. Shahbaz Rogel Erythrocyte distribution width (RBC) [Ratio] 13.5 % Normal 11.0-15.0 [facility] Comment on above: Performed By: #### C BC ####[facility] Fribofmahr[address] [place], [place] [address]Dr. Shahbaz Rogel Hematocrit (Bld) [Volume fraction] 36.4 % Normal 36.0-48.0 [facility] Comment on above: Performed By: #### C BC ####[facility] Uptwfjzjnl[address] [place], [place] [address]Dr. Shahbaz Rogel Hemoglobin (Bld) [Mass/Vol] 11.6 g/dL Critically low 12.0-16.0 [facility] Comment on above: Performed By: #### C BC ####[facility] Gintvtjqiw[address] [place], [place] [address]Dr. Shahbaz Rogel IG # 0.06 10e3/ul Critically high 0.00-0.03 [facility] Comment on above: Performed By: #### C BC ####[facility] Tdxrgvpsvd[address] [place], [place] [address]Dr. Shahbaz Rogel IG % 1.5 % Critically high 0.0-0.5 [facility] Comment on above: Performed By: #### C BC ####[facility] Bvfaigzwoq[address] [place], [place] [address]DrChen Rogel LYMPH # 0.7 103/ul Critically low 1.2-3.8 [facility] Comment on above: Performed By: #### C BC ####[facility] Kbawsaydjn[address] [place], [place] [address]Dr. Shahbaz Rogel Lymphocytes/100 WBC (Bld) 16.6 % Critically low 20.5-60.0 [facility] Comment on above: Performed By: #### C BC ####[facility] Ribanshtdg[address] [place], [place] [address]DrChen Rogel MANUAL DIFF REQ NO Normal [facility] Comment on above: Performed By: #### C BC ####[facility] Rosxyxqzjg424[address] [place], [place] [address]Dr. Shahbaz Rogel MCH (RBC) [Entitic mass] 27.6 pg Normal 26.7-34.0 [facility] Comment on above: Performed By: #### C BC ####[facility] Q[address]wmfvayo[address] [place], [place] [address]Dr. Shahbaz Rogel MCHC (RBC) [Mass/Vol] 31.9 g/dL Normal 29.9-35.2 [facility] Comment on above: Performed By: #### C BC ####[facility] Qndaibfglv[address] [place], [place] [address]DrChen Rogel MCV (RBC) [Entitic vol] 86.5 fL Normal 81.0-99.0 [facility] Comment on above: Performed By: #### C BC ####[facility] Eqitrfqmuk20[address] [place], [place] [address]DrChen Rogel MONO # 0.2 103/ul Critically low 0.3-0.8 [facility] Comment on above: Performed By: #### C BC ####[facility] Gdhjysuyft[address] [place], [place] [address]DrChen Rogel Monocytes/100 WBC (Bld) 5.0 % Normal 1.7-12.0 [facility] Comment on above: Performed By: #### C BC ####[facility] Mysaanjqlf[address] [place], [place] [address]DrChen Rogel NEUT # 3.1 103/ul Normal 1.4-6.5 [facility] Comment on above: Performed By: #### C BC ####[facility] Ijerrbcgvi224[address] [place], [place] [address]DrChen Rogel Neutrophils/100 WBC (Bld) 76.6 % Critically high 43.0-75.0 [facility] Comment on above: Performed By: #### C BC ####[facility] [address]xjc4[address] [place] [address]DrChen Rogel Platelet mean volume (Bld) [Entitic vol] 9.9 fL Normal 9.5-13.5 [facility] Comment on above: Performed By: #### C BC ####[facility] Uqqwitivbn50[address] [place], [place] [address]DrChen Rogel PLT 194 103/ul Normal 150-450 [facility] Comment on above: Performed By: #### C BC ####[facility] Lsoyqnrjsc[address] [place], [place] [address]DrChen Rogel RBC 4.21 106/ul Normal 4.20-5.40 [facility] Comment on above: Performed By: #### C BC ####[facility] Cpzqzsoldf[address] [place], [place] [address]DrChen Rogel WBC 4.0 103/ul Normal 4.0-11.0 [facility] Comment on above: Performed By: #### C BC ####[facility] Npnwbywxay[address] [place], [place] [address]DrChen Rogel PROF CHEM 8 (BAS METB)on Anion gap [Moles/Vol] 9.5 mmol/L Normal [facility] Comment on above: Performed By: #### B MP ####[facility] Nipokzfulw[address] [place], [place] [address]DrChen Rogel Calcium [Mass/Vol] 8.8 mg/dL Normal 8.5-10.1 [facility] Comment on above: Performed By: #### B MP ####[facility] Buexrrpksg[address] [place], [place] [address]DrChen Rogel Chloride [Moles/Vol] 106 mmol/L Normal 98-107 [facility] Comment on above: Performed By: #### B MP ####[facility] Wmequhjkgx[address] [place], [place] [address]DrChen Rogel CO2 [Moles/Vol] 29.6 mmol/L Normal 21.0-32.0 [facility] Comment on above: Performed By: #### B MP ####[facility] V[address]sg[address] [place] [address]Dr. Shahbaz Rogel Creatinine [Mass/Vol] 0.80 mg/dL Normal 0.55-1.02 [facility] Comment on above: Performed By: #### B MP ####[facility] V[address]zdp[address] [place] [address]Dr. Shahbaz Juan F EGFR-AF GUAMANIAN >60 Normal >=60 [facility] Comment on above: Performed By: #### B MP ####[facility] Lgjjwgkffp347[address] [place], [place] [address]Dr. Lilajarrod Juan F EGFR-NON AF GUAMANIAN >60 Normal >=60 [facility] Comment on above: Performed By: #### B MP ####[facility] Escqlkalnk[address] [place], [place] [address]Dr. Shahbaz Rogel Glucose [Mass/Vol] 137 mg/dL Critically high 74-[address] [facility] Comment on above: Performed By: #### B MP ####[facility] Hizalnpiii38[address] [place], [place] [address]Dr. Shahbaz Rogel Potassium [Moles/Vol] 4.1 mmol/L Normal 3.5-5.1 [facility] Comment on above: Performed By: #### B MP ####[facility] Ygaprfcgkg[address]13[address] [place], [place] [address]Dr. Lilajarrod Juan F Sodium [Moles/Vol] 141 mmol/L Normal 136-145 [facility] Comment on above: Performed By: #### B MP ####[facility] Jqpujymrtm[address] [place], [place] [address]Dr. Shahbaz Rogel Urea nitrogen [Mass/Vol] 18.0 mg/dL Normal 7.0-18.0 [facility] Comment on above: Performed By: #### B MP ####[facility] Cagispbapb[address] [place], [place] [address]Dr. Shahbaz Rogel Urea nitrogen/Creatinine [Mass ratio] 22.5 mg/mg Normal [facility] Comment on above: Performed By: #### B MP ####[facility] [address]ld[address] [place] [address]Dr. Shahbaz Rogel CBC AUTO DIFFon 01-06-2023 BASO # 0.0 103/ul Normal 0.0-0.1 [facility] Comment on above: Performed By: #### C BC ####[facility] Kqsabdehxt[address] [place], [place] [address]Dr. Shahbaz Rogel Basophils/100 WBC (Bld) 0.0 % Critically low 0.2-2.0 [facility] Comment on above: Performed By: #### C BC ####[facility] Aonfcwlxpx193[address] [place], [place] [address]Dr. Shahbaz Rogel EO # 0.0 103/ul Normal 0.0-0.7 [facility] Comment on above: Performed By: #### C BC ####[facility] Zydimwwbkj96[address] [place], [place] [address]Dr. Shahbaz Rogel Eosinophils/100 WBC (Bld) 0.0 % Critically low 0.9-7.0 [facility] Comment on above: Performed By: #### C BC ####[facility] Wehgeebsei12[address] [place], [place] [address]Dr. Shahbaz Rogel Erythrocyte distribution width (RBC) [Ratio] 13.8 % Normal 11.0-15.0 [facility] Comment on above: Performed By: #### C BC ####[facility] Dhlmzznrzm20[address] [place], [place] [address]Dr. Shahbaz Rogel Hematocrit (Bld) [Volume fraction] 36.9 % Normal 36.0-48.0 [facility] Comment on above: Performed By: #### C BC ####[facility] Fifiuelwlb064[address] [place], [place] [address]Dr. Shahbaz Rogel Hemoglobin (Bld) [Mass/Vol] 11.8 g/dL Critically low 12.0-16.0 [facility] Comment on above: Performed By: #### C BC ####[facility] Uzflnrthek[address] [place], [place] [address]Dr. Shahbaz Rogel IG # 0.04 10e3/ul Critically high 0.00-0.03 [facility] Comment on above: Performed By: #### C BC ####[facility] [address]se[address]xav[address] [place] [address]DrChen Shahbaz Juan F IG % 1.1 % Critically high 0.0-0.5 [facility] Comment on above: Performed By: #### C BC ####[facility] Sihourxpjg[address] [place], [place] [address]DrChen Shahbaz Juan F LYMPH # 0.5 103/ul Critically low 1.2-3.8 [facility] Comment on above: Performed By: #### C BC ####[facility] Axscazjrnw[address] [place], [place] [address]DrChen Lilajarrod Rogel Lymphocytes/100 WBC (Bld) 13.9 % Critically low 20.5-60.0 [facility] Comment on above: Performed By: #### C BC ####[facility] Vhkwuvgeau[address] [place], [place] [address]DrChen Lilajarrod Rogel MANUAL DIFF REQ NO Normal [facility] Comment on above: Performed By: #### C BC ####[facility] Hhtixdohdv[address] [place], [place] [address]DrChen Shahbaz Juan F MCH (RBC) [Entitic mass] 27.8 pg Normal 26.7-34.0 [facility] Comment on above: Performed By: #### C BC ####[facility] Yekczbkajm[address] [place], [place] [address]DrChen Sharpjarrod Juan F MCHC (RBC) [Mass/Vol] 32.0 g/dL Normal 29.9-35.2 [facility] Comment on above: Performed By: #### C BC ####[facility] Gfxruqxvjt[address] [place], [place] [address]DrChen Rogel MCV (RBC) [Entitic vol] 86.8 fL Normal 81.0-99.0 [facility] Comment on above: Performed By: #### C BC ####[facility] Waitdnsiji8[address] [place], [place] [address]DrChen Rogel MONO # 0.1 103/ul Critically low 0.3-0.8 [facility] Comment on above: Performed By: #### C BC ####[facility] [address]zagy[address] [place] [address]Dr. Shahbaz Rogel Monocytes/100 WBC (Bld) 3.7 % Normal 1.7-12.0 [facility] Comment on above: Performed By: #### C BC ####[facility] Z[address]rvxdgxi79[address] [place] [address]Dr. Shahbaz Rogel NEUT # 3.1 103/ul Normal 1.4-6.5 [facility] Comment on above: Performed By: #### C BC ####[facility] [address]oujxqplp5[address] [place] [address]Dr. Shahbaz Rogel Neutrophils/100 WBC (Bld) 81.3 % Critically high 43.0-75.0 [facility] Comment on above: Performed By: #### C BC ####[facility] Chexnetzic7[address] [place], [place] [address]DrChen Shahbaz Rogel Platelet mean volume (Bld) [Entitic vol] 9.8 fL Normal 9.5-13.5 [facility] Comment on above: Performed By: #### C BC ####[facility] Xfeiotkxnz[address] [place], [place] [address]Dr. Shahbaz Rogel PLT 184 103/ul Normal 150-450 [facility] Comment on above: Performed By: #### C BC ####[facility] Vcywdesdvr45[address] [place] [address]Dr. Shahbaz Rogel RBC 4.25 106/ul Normal 4.20-5.40 [facility] Comment on above: Performed By: #### C BC ####[facility] [address]reno[address] [place] [address]DrChen Shahbaz Rogel WBC 3.8 103/ul Critically low 4.0-11.0 [facility] Comment on above: Performed By: #### C BC ####[facility] Dblddpuodn4[address] [place] [address]DrChen Shahbaz Rogel PROF CHEM 8 (BAS METB)on Anion gap [Moles/Vol] 9.2 mmol/L Normal [facility] Comment on above: Performed By: #### B MP ####[facility] S[address]nsrkziqk25[address] [place] [address]Dr. Shahbaz Rogel Calcium [Mass/Vol] 8.6 mg/dL Normal 8.5-10.1 [facility] Comment on above: Performed By: #### B MP ####[facility] Xsprivdlga654[address] [place], [place] [address]Dr. Lilajarrod Juan F Chloride [Moles/Vol] 107 mmol/L Normal 98-107 [facility] Comment on above: Performed By: #### B MP ####[facility] Ufygjtnmom356[address] [place], [place] [address]Dr. Lilajarrod Juan F CO2 [Moles/Vol] 29.3 mmol/L Normal 21.0-32.0 [facility] Comment on above: Performed By: #### B MP ####[facility] Jzagmsbyop67[address] [place], [place] [address]Dr. Lilajarrod Juan F Creatinine [Mass/Vol] 0.79 mg/dL Normal 0.55-1.02 [facility] Comment on above: Performed By: #### B MP ####[facility] Xaadvreaon[address] [place], [place] [address]Dr. Lilajarrod Juan F EGFR-AF GUAMANIAN >60 Normal >=60 [facility] Comment on above: Performed By: #### B MP ####[facility] Dumitdqbah[address] [place], [place] [address]Dr. Shahbaz Rogel EGFR-NON AF GUAMANIAN >60 Normal >=60 [facility] Comment on above: Performed By: #### B MP ####[facility] W[address]xssbaaet[address] [place] [address]Dr. Shahbaz Rogel Glucose [Mass/Vol] 159 mg/dL Critically high 74-[address] [facility] Comment on above: Performed By: #### B MP ####[facility] Axmczzphya006[address] [place], [place] [address]Dr. Shahbaz Rogel Potassium [Moles/Vol] 3.5 mmol/L Normal 3.5-5.1 [facility] Comment on above: Performed By: #### B MP ####[facility] Etxxnnfvax76[address] [place] [address]Dr. Shahbaz Rogel Sodium [Moles/Vol] 142 mmol/L Normal 136-145 [facility] Comment on above: Performed By: #### B MP ####[facility] Fckkyhjvzt7[address] [place], [place] [address]Dr. Shahbaz Rogel Urea nitrogen [Mass/Vol] 21.0 mg/dL Critically high 7.0-18.0 [facility] Comment on above: Performed By: #### B MP ####[facility] Jiywaqfsmd144[address] [place], [place] [address]Dr. Shahbaz Juan F Urea nitrogen/Creatinine [Mass ratio] 26.6 mg/mg Normal [facility] Comment on above: Performed By: #### B MP ####[facility] Zvlirlxldw[address] [place], [place] [address]Dr. Shahbaz Juan F XR CHEST 2 Von 01-06-2023 XR CHEST 2 V Normal [facility] CBC AUTO DIFFon 01-05-2023 BASO # 0.0 103/ul Normal 0.0-0.1 [facility] Comment on above: Performed By: #### C BC ####[facility] Aqinpxhkje887[address] [place], [place] [address]Dr. Shahbaz Rogel Basophils/100 WBC (Bld) 0.2 % Normal 0.2-2.0 [facility] Comment on above: Performed By: #### C BC ####[facility] N[address]ynvsyjf[address] [place], [place] [address]Dr. Lilajarrod Juan F EO # 0.0 103/ul Normal 0.0-0.7 [facility] Comment on above: Performed By: #### C BC ####[facility] Yjijysttwv[address] [place], [place] [address]Dr. Shahbaz Juan F Eosinophils/100 WBC (Bld) 0.0 % Critically low 0.9-7.0 [facility] Comment on above: Performed By: #### C BC ####[facility] [address]vb[address]dn[address] [place], [place] [address]Dr. Lilajarrod Rogel Erythrocyte distribution width (RBC) [Ratio] 13.6 % Normal 11.0-15.0 [facility] Comment on above: Performed By: #### C BC ####[facility] Slmjkgxuzq[address] [place], [place] [address]Dr. Lilajarrod Rogel Hematocrit (Bld) [Volume fraction] 36.6 % Normal 36.0-48.0 [facility] Comment on above: Performed By: #### C BC ####[facility] Evlxjnsurq[address] [place], [place] [address]Dr. Shahbaz Rogel Hemoglobin (Bld) [Mass/Vol] 11.6 g/dL Critically low 12.0-16.0 [facility] Comment on above: Performed By: #### C BC ####[facility] Fcaqkpgizk[address] [place], [place] [address]Dr. Shahbaz Rogel IG # 0.03 10e3/ul Normal 0.00-0.03 [facility] Comment on above: Performed By: #### C BC ####[facility] Umqwdppxlz[address] [place], [place] [address]Dr. Shahbaz Rogel IG % 0.5 % Normal 0.0-0.5 [facility] Comment on above: Performed By: #### C BC ####[facility] [address]ojzxmyl[address] [place] [address]Dr. Shahbaz Rogel LYMPH # 0.6 103/ul Critically low 1.2-3.8 [facility] Comment on above: Performed By: #### C BC ####[facility] Dcglivpvsm[address] [place], [place] [address]Dr. Shahbaz Rogel Lymphocytes/100 WBC (Bld) 10.7 % Critically low 20.5-60.0 [facility] Comment on above: Performed By: #### C BC ####[facility] Wdnistqere2020[address] [place], [place] [address]Dr. Shahbaz Rogel MANUAL DIFF REQ NO Normal [facility] Comment on above: Performed By: #### C BC ####[facility] Rsrgwpvsqr50[address] [place], [place] [address]Dr. Shahbaz Rogel MCH (RBC) [Entitic mass] 27.7 pg Normal 26.7-34.0 [facility] Comment on above: Performed By: #### C BC ####[facility] Ydshsounpl[address] [place] [address]Dr. Shahbaz Rogel MCHC (RBC) [Mass/Vol] 31.7 g/dL Normal 29.9-35.2 [facility] Comment on above: Performed By: #### C BC ####[facility] Zmxhwpwhhc5[address] [place] [address]Dr. Shahbaz Rogel MCV (RBC) [Entitic vol] 87.4 fL Normal 81.0-99.0 [facility] Comment on above: Performed By: #### C BC ####[facility] Demuvfeawd13[address] [place] [address]Dr. Shahbaz Rogel MONO # 0.1 103/ul Critically low 0.3-0.8 [facility] Comment on above: Performed By: #### C BC ####[facility] Nxhgkgdejk6712[address] [place], [place] [address]Dr. Shahbaz Juan F Monocytes/100 WBC (Bld) 2.5 % Normal 1.7-12.0 [facility] Comment on above: Performed By: #### C BC ####[facility] Defvxwdftz1426[address] [place], [place] [address]Dr. Shahbaz Rogel NEUT # 4.8 103/ul Normal 1.4-6.5 [facility] Comment on above: Performed By: #### C BC ####[facility] Bitakoirzf[address] [place] [address]Dr. Shahbaz Juan F Neutrophils/100 WBC (Bld) 86.1 % Critically high 43.0-75.0 [facility] Comment on above: Performed By: #### C BC ####[facility] Jqmyefzrou8118 [place] [address]Dr. Shahbaz Rogel Platelet mean volume (Bld) [Entitic vol] 10.0 fL Normal 9.5-13.5 [facility] Comment on above: Performed By: #### C BC ####[facility] Ubpskybeit9626 [place] [id number]. Shahbaz Rogel PLT 193 103/ul Normal 150-450 [facility] Comment on above: Performed By: #### C BC ####[facility] Stqfbckoyq37[address] [place] [address]Dr. Shahbaz Rogel RBC 4.19 106/ul Critically low 4.20-5.40 [facility] Comment on above: Performed By: #### C BC ####[facility] Niwwanwovm7175 [place] [address]Dr. Shahbaz Rogel WBC 5.6 103/ul Normal 4.0-11.0 [facility] Comment on above: Performed By: #### C BC ####[facility] Oxaapltmpa4884 [place] [address]Dr. Lilajarrod Rogel PROF CHEM 8 (BAS METB)on Anion gap [Moles/Vol] 12.7 mmol/L Normal [facility] Comment on above: Performed By: #### B MP ####[facility] Ekyefmfvsk[address] [place], [place] [address]Dr. Shahbaz Rogel Calcium [Mass/Vol] 8.8 mg/dL Normal 8.5-10.1 [facility] Comment on above: Performed By: #### B MP ####[facility] Mbswkoykse4308 [place] [address]Dr. Lilajarrod Rogel Chloride [Moles/Vol] 107 mmol/L Normal 98-107 [facility] Comment on above: Performed By: #### B MP ####[facility] Tkvmcuozvy4488 [place] [address]Dr. Shahbaz Rogel CO2 [Moles/Vol] 26.9 mmol/L Normal 21.0-32.0 [facility] Comment on above: Performed By: #### B MP ####[facility] Vbggerypmm397[address] [place], [place] [address]Dr. Shahbaz Rogel Creatinine [Mass/Vol] 0.81 mg/dL Normal 0.55-1.02 [facility] Comment on above: Performed By: #### B MP ####[facility] Nibgiarepq6828 [place] [id number]. Shahbaz Juan F EGFR-AF GUAMANIAN >60 Normal >=60 [facility] Comment on above: Performed By: #### B MP ####[facility] Rqlwbnioav1541 [place] [address]Dr. Shahbaz Juan F EGFR-NON AF GUAMANIAN >60 Normal >=60 [facility] Comment on above: Performed By: #### B MP ####[facility] Kyyruwgthj0229 [place] [address]Dr. Shahbaz Rogel Glucose [Mass/Vol] 144 mg/dL Critically high 74-106 [facility] Comment on above: Performed By: #### B MP ####[facility] Iidfkwyrue6925[address] [place], [place] [address]Dr. Shahbaz Rogel Potassium [Moles/Vol] 3.6 mmol/L Normal 3.5-5.1 [facility] Comment on above: Performed By: #### B MP ####[facility] Oucxivoajo098[address] [place], [place] [address]Dr. Shahbaz Rogel Sodium [Moles/Vol] 143 mmol/L Normal 136-145 [facility] Comment on above: Performed By: #### B MP ####[facility] Arwhlcnhth[address] [place], [place] [address]Dr. Shahbaz Rogel Urea nitrogen [Mass/Vol] 20.0 mg/dL Critically high 7.0-18.0 [facility] Comment on above: Performed By: #### B MP ####[facility] Abveudvcad213[address] [place], [place] [address]Dr. Shahbaz Rogel Urea nitrogen/Creatinine [Mass ratio] 24.7 mg/mg Normal [facility] Comment on above: Performed By: #### B MP ####[facility] Buufidvena7025[address] [place], [place] [address]Dr. Shahbaz Rogel CBC W MANUAL DIFFon 01-05-20 23 ATYPICAL LYMPH # Normal [facility] Comment on above: Performed By: #### C BCMAN ####[facility] Irgwqbdwlx9935[address] [place], [place] [address]Dr. Shahbaz Rogel ATYPICAL LYMPH % Normal [facility] Comment on above: Performed By: #### C BCMAN ####[facility] Mtlhwgneka0206 [place] [id number]. Yijarrod Rogel BAND # 0.0 103/ul Normal 0.0-0.3 [facility] Comment on above: Performed By: #### C BCMAN ####[facility] Ymbguqkhic6746 [place] [address]Dr. Yilan Rogel BAND % 0 % Normal 0-5 [facility] Comment on above: Performed By: #### C BCMAN ####[facility] Gynvdyxlzb6398 [place] [address]Dr. Yijarrod Rogel BASOM # 0.00 103/ul Normal 0.00-0.10 [facility] Comment on above: Performed By: #### C BCBRICE ####[facility] Yxtpqjbxch26[address] [place], [place] [address]Dr. Shahbaz Rogel BASOM % 0.0 % Critically low 0.2-2.0 [facility] Comment on above: Performed By: #### C BCBRICE ####[facility] Eemgwnjull[address] [place], [place] [address]Dr. Yijarrod Rogel BLAST # Normal [facility] Comment on above: Performed By: #### C BCBRICE ####[facility] Chkcpkthyv7081 [place] [address]Dr. Shahbaz Rogel BLAST % Normal [facility] Comment on above: Performed By: #### C BCBRICE ####[facility] Wpbjspzmfu937[address] [place], [place] [address]Dr. Shahbaz Rogel CORRECTED WBC Normal 4.0-11.0 [facility] Comment on above: Performed By: #### C BCBRICE ####[facility] Iubjsbnrqy724[address] [place], [place] [address]Dr. Yijarrod Rogel EOS # 0.00 103/ul Normal 0.00-0.70 [facility] Comment on above: Performed By: #### C BCMAN ####[facility] Hmfxszotbo50[address] [place], [place] [address]Dr. Yijarrod Rogel EOS% 0.0 % Critically low 0.9-7.0 [facility] Comment on above: Performed By: #### C CAIN ####[facility] Grbayrqkrd7261 [place] [address]Dr. Shahbaz Rogel HCT 36.5 % Normal 36.0-48.0 [facility] Comment on above: Performed By: #### C CAIN ####[facility] Kinbdssazi4156 [place] [id number]. Shahbaz Rogel HGB 11.8 g/dl Critically low 12.0-16.0 [facility] Comment on above: Performed By: #### C CAIN ####[facility] Wggnzfoani2833 [place] [address]Dr. Shahbaz Rogel LYMPHM # 0.42 103/ul Critically low 1.20-3.80 [facility] Comment on above: Performed By: #### C CAIN ####[facility] Bdgxvynxwb8706 [place] [address]Dr. Shahbaz Rogel LYMPHM% 12.0 % Critically low 20.5-60.0 [facility] Comment on above: Performed By: #### C CAIN ####[facility] Qamupdgcdj16[address] [place], [place] [address]Dr. Shahbaz Rogel MCH 28.0 pg Normal 26.7-34.0 [facility] Comment on above: Performed By: #### C CAIN ####[facility] Guvybkdagb5116 [place] [address]Dr. Shahbaz Rogel MCHC 32.3 g/dl Normal 29.9-35.2 [facility] Comment on above: Performed By: #### C CAIN ####[facility] Qphlzylvhz9813 [place] [id number]. Shahbaz Rogel MCV 86.7 fL Normal 81.0-99.0 [facility] Comment on above: Performed By: #### C CAIN ####[facility] Fdxologiwr3176 [place] [address]Dr. Shahbaz Rogel METAMYELOCYTE # Normal [facility] Comment on above: Performed By: #### C CAIN ####[facility] Xcwvwreuhb0776 [place] [id number]. Shahbaz Rogel METAMYELOCYTE % Normal [facility] Comment on above: Performed By: #### C CAIN ####[facility] Esogigfled9838 [place] [id number]. Shahbaz Rogel MONOM# 0.07 103/ul Critically low 0.30-0.80 [facility] Comment on above: Performed By: #### C CAIN ####[facility] Woguqfryfp9610 [place] [id number]. Shahbaz Rogel MONOM% 2.0 % Normal 1.7-12.0 [facility] Comment on above: Performed By: #### C CAIN ####[facility] Jjznjxpzzf4568 [place] [address]Dr. Shahbaz Rogel MPV 9.9 fL Normal 9.5-13.5 [facility] Comment on above: Performed By: #### C CAIN ####[facility] Cybkosygyr196[address] [place], [place] [address]Dr. Shahbaz Rogel MYELOCYTE # Normal [facility] Comment on above: Performed By: #### C CAIN ####[facility] [address]fvvbk[address] [place], [place] [id number]. Shahbaz Rogel MYELOCYTE % Normal [facility] Comment on above: Performed By: #### C CAIN ####[facility] Vlgfcsshoe[address] [place], [place] [address]Dr. Shahbaz Rogel NRBC Normal [facility] Comment on above: Performed By: #### C CAIN ####[facility] Hgxnmgwaju0285 [place] [id number]. Shahbaz Rogel PLT 178 103/ul Normal 150-450 [facility] Comment on above: Performed By: #### C CAIN ####[facility] Fidqvpmhmx2914 [place] [id number]. Shahbaz Rogel RBC 4.21 106/ul Normal 4.20-5.40 [facility] Comment on above: Performed By: #### C CAIN ####[facility] Aflkvoeeea0603 [place] [id number]. Shahbaz Juan F RDW 13.2 % Normal 11.0-15.0 [facility] Comment on above: Performed By: #### C CAIN ####[facility] Qndocsrbwp0885 [place] [address]Dr. Lilajarrod Juan F SEG # 3.01 103/ul Normal 1.40-6.50 [facility] Comment on above: Performed By: #### C CAIN ####[facility] Wzjvzcunmx7088 [place] [address]Dr. Shahbaz Juan F SEG % 86.0 % Critically high 43.0-75.0 [facility] Comment on above: Performed By: #### C CANI ####[facility] Qoajmwrspi9403 [place] [address]Dr. Shahbaz oRgel WBC 3.5 103/ul Critically low 4.0-11.0 [facility] Comment on above: Performed By: #### C CAIN ####[facility] Drnrxykrqd615[address] [place], [place] [address]Dr. Shahbaz Rogel PROF CHEM 8 (BAS METB)on Anion gap [Moles/Vol] 10.5 mmol/L Normal [facility] Comment on above: Performed By: #### B MP ####[facility] Xyftzpkjmh45[address] [place], [place] [address]Dr. Shahbaz Rogel Calcium [Mass/Vol] 8.7 mg/dL Normal 8.5-10.1 [facility] Comment on above: Performed By: #### B MP ####[facility] Ifsnwhhfhr6722 [place] [address]Dr. Shahbaz Rogel Chloride [Moles/Vol] 108 mmol/L Critically high 98-107 [facility] Comment on above: Performed By: #### B MP ####[facility] Ktykzrdzek4875 [place] [address]Dr. Shahbaz Rogel CO2 [Moles/Vol] 25.2 mmol/L Normal 21.0-32.0 [facility] Comment on above: Performed By: #### B MP ####[facility] Zmufkwbtzh9118 [place] [address]Dr. Shahbaz Rogel Creatinine [Mass/Vol] 0.77 mg/dL Normal 0.55-1.02 [facility] Comment on above: Performed By: #### B MP ####[facility] Ejsrjawrqb6708 [place] [address]Dr. Shahbaz Juan F EGFR-AF GUAMANIAN >60 Normal >=60 [facility] Comment on above: Performed By: #### B MP ####[facility] Wvqoktapmn8679 [place] [address]Dr. Shahbaz Juan F EGFR-NON AF GUAMANIAN >60 Normal >=60 [facility] Comment on above: Performed By: #### B MP ####[facility] Xrhrokzwmx359[address] [place], [place] [address]Dr. Shahbaz Rogel Glucose [Mass/Vol] 169 mg/dL Critically high 74-106 T [facility] Comment on above: Performed By: #### B MP ####[facility] Xzxnexzzuj094[address] [place], [place] [address]Dr. Shahbaz Rogel Potassium [Moles/Vol] 3.7 mmol/L Normal 3.5-5.1 [facility] Comment on above: Performed By: #### B MP ####[facility] Azfsfcsnby8037[address] [place], [place] [address]Dr. Shahbaz Rogel Sodium [Moles/Vol] 140 mmol/L Normal 136-145 [facility] Comment on above: Performed By: #### B MP ####[facility] Pwpgizjhbf028[address] [place], [place] [address]Dr. Shahbaz Rogel Urea nitrogen [Mass/Vol] 14.0 mg/dL Normal 7.0-18.0 [facility] Comment on above: Performed By: #### B MP ####[facility] Vbtljlhfqx69[address] [place], [place] [address]Dr. Shahbaz Rogel Urea nitrogen/Creatinine [Mass ratio] 18.2 mg/mg Normal [facility] Comment on above: Performed By: #### B MP ####[facility] Guatqtehob108[address] [place], [place] [address]Dr. Shahbaz Rogel RESPIRATORY PANEL PLUSon Adenovirus Not detected Normal NOT DETECTED [facility] Comment on above: Performed By: #### R SPLUS ####[facility] Ewcyaesmwq712[address] [place], [place] [address]Dr. Lilajarrod Rogel B. Parapertusis Not detected Normal NOT DETECTED [facility] Comment on above: Performed By: #### R SPLUS ####[facility] Bzdioedofq20[address] [place], [place] [address]Dr. Shahbaz Rogel B. Pertussis Not detected Normal NOT DETECTED [facility] Comment on above: Performed By: #### R SPLUS ####[facility] Wverrguqzr216[address] [place], [place] [address]Dr. Shahbaz Rogel Chlamydia Pneumoniae Not detected Normal NOT DETECTED [facility] Comment on above: Performed By: #### R SPLUS ####[facility] Hufhdbopka[address] [place], [place] [address]Dr. jarrod Rogel Coronavirus 229E Not detected Normal NOT DETECTED [facility] Comment on above: Performed By: #### R SPLUS ####[facility] Kclbrdmyaq880[address] [place], [place] [address]Dr. jarrod Rogel Coronavirus HKU1 Not detected Normal NOT DETECTED [facility] Comment on above: Performed By: #### R SPLUS ####[facility] Ncwfprxkel07[address] [place], [place] [address]Dr. jarrod [facility] Coronavirus NL63 Not detected Normal NOT DETECTED [facility] Comment on above: Performed By: #### R SPLUS ####[facility] Xssqkaxkly980[address] [place], [place] [address]Dr. jarrod Rogel Coronavirus OC43 Not detected Normal NOT DETECTED [facility] Comment on above: Performed By: #### R SPLUS ####[facility] Mruuiyggif807[address] [place], [place] [address]Dr. Lilajarrod Rogel Influenza A H1 Not detected Normal NOT DETECTED [facility] Comment on above: Performed By: #### R SPLUS ####[facility] Ccxfdggios5650[address] [place], [place] [address]Dr. Lilajarrod Rogel Influenza A H1 2009 Not detected Normal NOT DETECTED [facility] Comment on above: Performed By: #### R SPLUS ####[facility] Gmihczvwwg420[address] [place], [place] [address]Dr. Shahbaz Rogel Influenza A H3 Not detected Normal NOT DETECTED [facility] Comment on above: Performed By: #### R SPLUS ####[facility] Nzvoydwuvv41[address] [place], [place] [address]Dr. Shahbaz oRgel Influenza B Not detected Normal NOT DETECTED [facility] Comment on above: Performed By: #### R SPLUS ####[facility] Oniuedmfeo9[address] [place], [place] [address]Dr. Shahbaz Rogel Metapneumovirus Detected Abnormal NOT DETECTED [facility] Comment on above: Performed By: #### R SPLUS ####[facility] Zgvmggdgpw119[address] [place], [place] [address]Dr. Shahbaz Rogel Mycoplas. Pneumoniae Not detected Normal NOT DETECTED [facility] Comment on above: Performed By: #### R SPLUS ####[facility] Fyyljjmdrf994[address] [place], [place] [address]Dr. Shahbaz Rogel Parainfluenza 1 Not detected Normal NOT DETECTED [facility] Comment on above: Performed By: #### R SPLUS ####[facility] Cdtyuvegmr2838[address] [place], [place] [address]Dr. Shahbaz Rogel Parainfluenza 2 Not detected Normal NOT DETECTED [facility] Comment on above: Performed By: #### R SPLUS ####[facility] Tsfifiguwg6634[address] [place], [place] [address]Dr. Shahbaz Rogel Parainfluenza 3 Not detected Normal NOT DETECTED [facility] Comment on above: Performed By: #### R SPLUS ####[facility] Gftryzogcc9815[address] [place], [place] [address]Dr. Shahbaz Rogel Parainfluenza 4 Not detected Normal NOT DETECTED [facility] Comment on above: Performed By: #### R SPLUS ####[facility] Zmjtctqsjb9220[address] [place], [place] [address]Dr. Shahbaz Rogel Rhino/Enterovirus Not detected Normal NOT DETECTED [facility] Comment on above: Performed By: #### R SPLUS ####[facility] Tcpwpxcmdf2538 [place] [address]Dr. Shahbaz Rogel RP2 Header 1 RESPIRATORY PANEL: VIRUSES Normal [facility] Comment on above: Performed By: #### R SPLUS ####[facility] Nnujmcoxuh6470 [place] [address]Dr. Shahbaz Rogel RP2 Header 2 RESPIRATORY PANEL: BACTERIA Normal [facility] Comment on above: Performed By: #### R SPLUS ####[facility] Crlwtozzhs8201 [place] [address]Dr. Shahbaz Rogel RSV Not detected Normal NOT DETECTED [facility] Comment on above: Performed By: #### R SPLUS ####[facility] Pudcqzlfbg2297 [place] [address]Dr. Shahbaz Rogel SARS-CoV-2 (COVID-19) RNA PAVAN+probe Ql (Unsp spec) Not detected Normal NOT DETECTED [facility] Comment on above: Performed By: #### R SPLUS ####[facility] Kdqwdgizct[address] [place], [place] [address]Dr. Shahbaz Rogel CARDIAC ROSALINA 3-6on 3 CK [Catalytic activity/Vol] 148 U/L Normal 26-192 [facility] Comment on above: Performed By: #### C MREP ####[facility] Bmlwylkrpt92[address] [place], [place] [address]Dr. jarrod Rogel CK.MB [Mass/Vol] 0.84 ng/mL Normal <=3.60 [facility] Comment on above: Performed By: #### C MREP ####[facility] Mfoqhuppan99[address] [place], [place] [address]Dr. jarrod Rogel HSTROP 6.4 pg/mL Normal 4.0-51.3 [facility] Comment on above: Result Comment: CUT- OFF POINTS HAVE BEEN ESTABLISHED BASED ON THE FOURTH UNIVERSAL DEFINITIONS OF MYOCARDIALINFARCTION. THE UPPER REFERENCE LIMIT (URL) OF TROPONIN, DEFINED THE 99TH PERCENTILE OFcTnI DISTRIBUTION IN A REFERENCE POPULATION, HAS BEEN CONFIRMED THE DECISION THRESHOLDFOR OR DIAGNOSIS. Performed By: #### C MREP ####[facility] Qvfvejmjor7885 [place] [address]Dr. Shahbaz Rogel CBC W MANUAL DIFFon 01-04-20 23 ATYPICAL LYMPH # Normal [facility] Comment on above: Performed By: #### C CAIN ####[facility] Kuiroexuwx8114 [place] [id number]. Shahbaz Rogel ATYPICAL LYMPH % Normal [facility] Comment on above: Performed By: #### C CAIN ####[facility] Jclcetzxox120[address] [place], [place] [address]Dr. Shahbaz Rogel BAND # 0.0 103/ul Normal 0.0-0.3 [facility] Comment on above: Performed By: #### C CAIN ####[facility] Qymxfizfep65[address] [place], [place] [address]Dr. Shahbaz Rogel BAND % 0 % Normal 0-5 [facility] Comment on above: Performed By: #### C CAIN ####[facility] Louabtpsko995[address] [place], [place] [address]Dr. Shahbaz Rogel BASOM # 0.00 103/ul Normal 0.00-0.10 [facility] Comment on above: Performed By: #### C CAIN ####[facility] Lovzriqtzu1025[address] [place], [place] [address]Dr. Shahbaz Rogel BASOM % 0.0 % Critically low 0.2-2.0 [facility] Comment on above: Performed By: #### C CAIN ####[facility] Dayqqhnkjh1340[address] [place], [place] [address]Dr. Shahbaz Rogel BLAST # Normal [facility] Comment on above: Performed By: #### C CAIN ####[facility] Pxhgslpxhb384[address] [place], [place] [address]Dr. Shahbaz Rogel BLAST % Normal [facility] Comment on above: Performed By: #### C CAIN ####[facility] Anvhgkqzst539[address] [place], [place] [address]Dr. Shahbaz Rgoel CORRECTED WBC Normal 4.0-11.0 [facility] Comment on above: Performed By: #### C CAIN ####[facility] Sqzwdqwgnq8007 [place], [place] [address]Me. Shahbaz Rogel EOS # 0.02 103/ul Normal 0.00-0.70 [facility] Comment on above: Performed By: #### C CAIN ####[facility] Obyhkabmvf4308 [place], [place] [address]Ft. Shahbaz Rogel EOS% 1.0 % Normal 0.9-7.0 [facility] Comment on above: Performed By: #### C CAIN ####[facility] Iuxwxwebev2690 [place] [id number]. Shahbaz Rogel HCT 37.5 % Normal 36.0-48.0 [facility] Comment on above: Performed By: #### C CAIN ####[facility] Wzydvrxmrk8258 [place] [id number]. Shahbaz Rogel HGB 12.0 g/dl Normal 12.0-16.0 [facility] Comment on above: Performed By: #### C CAIN ####[facility] Qzkzurnszz8882 [place] [id number]. Shahbaz Rogel LYMPHM # 0.21 103/ul Critically low 1.20-3.80 [facility] Comment on above: Performed By: #### C CAIN ####[facility] Qrvbegoprm8400 [place] [id number]. Shahbaz Rogel LYMPHM% 13.0 % Critically low 20.5-60.0 [facility] Comment on above: Performed By: #### C CAIN ####[facility] Umigemqmbh3887 [place] [id number]. Shahbaz Rogel MCH 27.8 pg Normal 26.7-34.0 [facility] Comment on above: Performed By: #### C CAIN ####[facility] Oxtttwfkyp7037 [place] [id number]. Shahbaz Rogel MCHC 32.0 g/dl Normal 29.9-35.2 [facility] Comment on above: Performed By: #### C CAIN ####[facility] Qsnbqzdwfh7657 [place] [id number]. Shahbaz Rogel MCV 86.8 fL Normal 81.0-99.0 [facility] Comment on above: Performed By: #### C BCMAN ####[facility] Gxnlxbnmbk4319 [place] [id number]. Shahbaz Rogel METAMYELOCYTE # Normal [facility] Comment on above: Performed By: #### C CAIN ####[facility] Ppirejqxwb1720 [place] [id number]. Shahbaz Rogel METAMYELOCYTE % Normal [facility] Comment on above: Performed By: #### C CAIN ####[facility] Zandmfthky[address] [place], [place] [address]Dr. Shahbaz Rogel MONOM# 0.02 103/ul Critically low 0.30-0.80 [facility] Comment on above: Performed By: #### C CAIN ####[facility] Ogbbqgmlqj176[address] [place], [place] [address]Dr. Shahbaz Rogel MONOM% 1.0 % Critically low 1.7-12.0 [facility] Comment on above: Performed By: #### C CAIN ####[facility] Djynybgwcz445[address] [place], [place] [address]Dr. Shahbaz Rogel MPV 9.5 fL Normal 9.5-13.5 [facility] Comment on above: Performed By: #### C CAIN ####[facility] Muutgokkzd229[address] [place], [place] [address]Dr. Shahbaz Rogel MYELOCYTE # Normal [facility] Comment on above: Performed By: #### C CAIN ####[facility] Xapzdwwgyj9155 [place] [id number]. Shahbaz Rogel MYELOCYTE % Normal [facility] Comment on above: Performed By: #### C CAIN ####[facility] [address]tj[address]ub[address] [place], [place] [address]Dr. Shahbaz Rogel NRBC Normal [facility] Comment on above: Performed By: #### C CAIN ####[facility] Tmyiatvixd5[address] [place], [place] [address]Dr. Shahbaz Rogel PLT 173 103/ul Normal 150-450 [facility] Comment on above: Performed By: #### C CAIN ####[facility] Qdixcehwgo8016 [place] [id number]. Shahbaz Rogel RBC 4.32 106/ul Normal 4.20-5.40 [facility] Comment on above: Performed By: #### C CAIN ####[facility] Dqlbwfcbxr8404 [place] [id number]. Shahbaz Rogel RDW 13.1 % Normal 11.0-15.0 [facility] Comment on above: Performed By: #### C CAIN ####[facility] Rnjmegtutd7566 [place] [id number]. Shahbaz Rogel SEG # 1.36 103/ul Critically low 1.40-6.50 [facility] Comment on above: Performed By: #### C CAIN ####[facility] Bbhzfohfjz[address] [place], [place] [address]Dr. Shahbaz Rogel SEG % 85.0 % Critically high 43.0-75.0 [facility] Comment on above: Performed By: #### C CAIN ####[facility] Birqknoiji3849 [place] [id number]. Shahbaz Rogel WBC 1.6 103/ul Critically low 4.0-11.0 [facility] Comment on above: Performed By: #### C CAIN ####[facility] Yqdtkbrqzd9581 [place] [id number]. Shahbaz Rogel CT CHEST WO CONon 01-03-2023 CT CHEST WO CON Normal [facility] ER URINE PROFILEon 3 Bilirubin Ql (U) Negative Normal NEGATIVE [facility] Comment on above: Performed By: #### E RUR ####[facility] Mtlqtyjema[address] [place], [place] [address]Dr. Shahbaz Rogel Clarity (U) CLEAR Normal CLEAR [facility] Comment on above: Performed By: #### E RUR ####[facility] Hiysikfmjb3518 [place] [id number]. Shahbaz Rogel Color (U) LT. YELLOW Normal YELLOW [facility] Comment on above: Performed By: #### E RUR ####[facility] Bfqzpbueqa5238 [place] [address]Dr. Shahbaz POWELL A micrscopic examina tion will be performed if indicated. Normal [facility] Comment on above: Performed By: #### E RUR ####[facility] Rjpyqyfsyx3855 [place] [address]Dr. Shahbaz Rogel Glucose Ql (U) Negative Normal NEGATIVE [facility] Comment on above: Performed By: #### E RUR ####[facility] Kjglxmgbfl08[address] [place], [place] [address]Dr. Shahbaz Rogel Hemoglobin Ql (U) Negative Normal NEGATIVE [facility] Comment on above: Performed By: #### E RUR ####[facility] Fjfupmkxui200[address] [place], [place] [address]Dr. Shahbaz Rogel Ketones Ql (U) Negative Normal NEGATIVE [facility] Comment on above: Performed By: #### E RUR ####[facility] Hzluizedra249[address] [place], [place] [address]Dr. Shahbaz Rogel LEUKOCYTES Negative Normal NEGATIVE [facility] Comment on above: Performed By: #### E RUR ####[facility] Mjmojsxwmj7775[address] [place], [place] [address]Dr. Shahbaz Rogel Nitrite Ql (U) Negative Normal NEGATIVE [facility] Comment on above: Performed By: #### E RUR ####[facility] Njdongospn6750[address] [place], [place] [address]Dr. Shahbaz Rogel pH (U) 6.0 [pH] Normal 5-9 [facility] Comment on above: Performed By: #### E RUR ####[facility] Xbosxnxysu877[address] [place], [place] [address]Dr. Shahbaz Rogel SPEC GRAVITY <=1.005 Abnormal 1.005-<=1. 025 [facility] Comment on above: Performed By: #### E RUR ####[facility] Ivnuwxraob9099[address] [place], [place] [address]Dr. Shahbaz Rogel UA PROTEIN Negative Normal NEGATIVE/ TRACE [facility] Comment on above: Performed By: #### E RUR ####[facility] Wgpktyejpg2338 [place] [address]Dr. Shahbaz Rogel UR MICRO IND NOT INDICATED Normal [facility] Comment on above: Performed By: #### E RUR ####[facility] Weuosnqqqw8109 [place] [address]Dr. Shahbaz Rogel Urobilinogen Qn (U) 0.2 {Melida'U}/dL Normal 0.2 - 1. 0 [facility] Comment on above: Performed By: #### E RUR ####[facility] Sljhibyywh8055[address] [place], [place] [address]Dr. Shahbaz Rogel LACTATE/LACTIC ACIDon 2022 Lactate [Moles/Vol] 1.5 mmol/L Normal 0.4-2.0 [facility] Comment on above: Performed By: #### L ACT ####[facility] Hkntnyoppx8[address] [place], [place] [address]Dr. Shahbaz Rogel PROF CHEM 8 (BAS METB)on Anion gap [Moles/Vol] 11.6 mmol/L Normal [facility] Comment on above: Performed By: #### B MP ####[facility] Xbwndanwoh480[address] [place], [place] [address]Dr. Shahbaz Rogel Calcium [Mass/Vol] 8.1 mg/dL Critically low 8.5-10.1 [facility] Comment on above: Performed By: #### B MP ####[facility] Euvcxqqfva135[address] [place], [place] [address]Dr. Shahbaz Rogel Chloride [Moles/Vol] 109 mmol/L Critically high 98-107 [facility] Comment on above: Performed By: #### B MP ####[facility] Cwjzqfdolw648[address] [place], [place] [address]Dr. Shahbaz Rogel CO2 [Moles/Vol] 25.2 mmol/L Normal 21.0-32.0 [facility] Comment on above: Performed By: #### B MP ####[facility] Xkavqmfgrt995[address] [place], [place] [address]Dr. Lilajarrod Juan F Creatinine [Mass/Vol] 0.89 mg/dL Normal 0.55-1.02 [facility] Comment on above: Performed By: #### B MP ####[facility] Uhzagjxzgf2102 [place] [address]Dr. Lilajarrod Juan F EGFR-AF GUAMANIAN >60 Normal >=60 [facility] Comment on above: Performed By: #### B MP ####[facility] Ghzplepsog2104 [place] [address]Dr. Lilajarrod Juan F EGFR-NON AF GUAMANIAN >60 Normal >=60 [facility] Comment on above: Performed By: #### B MP ####[facility] Pepqfoapst5760[address] [place], [place] [address]Dr. Shahbaz Rogel Glucose [Mass/Vol] 167 mg/dL Critically high 74-106 [facility] Comment on above: Performed By: #### B MP ####[facility] Vrhrsnjcdm437[address] [place], [place] [address]Dr. Shahbaz Rogel Potassium [Moles/Vol] 3.8 mmol/L Normal 3.5-5.1 [facility] Comment on above: Performed By: #### B MP ####[facility] Kbhsvcmloc124[address] [place], [place] [address]Dr. Shahbaz Rogel Sodium [Moles/Vol] 142 mmol/L Normal 136-145 [facility] Comment on above: Performed By: #### B MP ####[facility] Llronukbdj667[address] [place], [place] [address]Dr. Shahbaz Rogel Urea nitrogen [Mass/Vol] 9.0 mg/dL Normal 7.0-18.0 [facility] Comment on above: Performed By: #### B MP ####[facility] Vvhmfravrf358[address] [place], [place] [address]Dr. Shahbaz Rogel Urea nitrogen/Creatinine [Mass ratio] 10.1 mg/mg Normal [facility] Comment on above: Performed By: #### B MP ####[facility] Qnqmovsoip477[address] [place], [place] [address]Dr. Shahbaz Rogel CARDIAC ROSALINA ADMITon 023 CK [Catalytic activity/Vol] 173 U/L Normal 26-192 [facility] Comment on above: Performed By: #### EMILIO HALL ####[facility] Xycdqrbhfw4842 [place] [address]Dr. Shahbaz Rogel CK.MB [Mass/Vol] 0.55 ng/mL Normal <=3.60 [facility] Comment on above: Performed By: #### EMILIO HALL ####[facility] Mnmcwxeaht9279 [place] [address]Dr. Shahbaz Rogel HSTROP 5.9 pg/mL Normal 4.0-51.3 [facility] Comment on above: Result Comment: CUT- OFF POINTS HAVE BEEN ESTABLISHED BASED ON THE FOURTH UNIVERSAL DEFINITIONS OF MYOCARDIALINFARCTION. THE UPPER REFERENCE LIMIT (URL) OF TROPONIN, DEFINED THE 99TH PERCENTILE OFcTnI DISTRIBUTION IN A REFERENCE POPULATION, HAS BEEN CONFIRMED THE DECISION THRESHOLDFOR OR DIAGNOSIS. Performed By: #### EMILIO HALL ####[facility] Jufqgmoess9465 [place] [address]Dr. Shahbaz Rogel LEN 76 ng/mL Normal 9-82 [facility] Comment on above: Performed By: #### EMILIO HALL ####[facility] Vfjsbforqw[address] [place], [place] [address]Dr. Shahbaz Rogel CBC W MANUAL DIFFon 01-03-20 23 ATYPICAL LYMPH # Normal [facility] Comment on above: Performed By: #### Cheri BARLOW ####[facility] Pcyhbjxgun4304 [place] [address]Dr. Shahbaz Rogel ATYPICAL LYMPH % Normal [facility] Comment on above: Performed By: #### Cheri BARLOW ####[facility] Ctbwcwsfwz8660 [place] [address]Dr. Shahbaz Rogel BAND # Normal 0.0-0.3 [facility] Comment on above: Performed By: #### Cheri BARLOW ####[facility] Patfbsempm2818 [place] [address]Dr. Lilalan Rogel BAND % Normal 0-5 [facility] Comment on above: Performed By: #### Cheri BARLOW ####[facility] Zuplwcftsh2443 [place] [id number]. Shahbaz Rogel BASOM # 0.00 103/ul Normal 0.00-0.10 [facility] Comment on above: Performed By: #### C BCMAN ####[facility] Biwvxiprdy4830 [place] [id number]. Shahbza Rogel BASOM % 0.0 % Critically low 0.2-2.0 [facility] Comment on above: Performed By: #### C BCMAN ####[facility] Uugvlutuiu8298 [place] [address]Dr. Shahbaz Rogel BLAST # Normal [facility] Comment on above: Performed By: #### C BCMAN ####[facility] Khrogeevtc6582 [place] [address]Dr. Shahbaz Rogel BLAST % Normal [facility] Comment on above: Performed By: #### C BCBRICE ####[facility] Lspmrystad60[address] [place], [place] [address]Dr. Shahbaz Rogel CORRECTED WBC Normal 4.0-11.0 [facility] Comment on above: Performed By: #### C BCBRICE ####[facility] Pwqcjatvqy46[address] [place], [place] [address]Dr. Shahbaz Rogel EOS # 0.03 103/ul Normal 0.00-0.70 [facility] Comment on above: Performed By: #### C BCBRICE ####[facility] Awvfuxppsr7030 [place] [address]Dr. Shahbaz Rogel EOS% 1.0 % Normal 0.9-7.0 [facility] Comment on above: Performed By: #### C BCMAN ####[facility] Kfjzautfig9571 [place] [address]Dr. Shahbaz Rogel HCT 42.8 % Normal 36.0-48.0 [facility] Comment on above: Performed By: #### C BCMAN ####[facility] Vsqviazeww66[address] [place], [place] [address]Dr. Shahbaz Rogel HGB 14.1 g/dl Normal 12.0-16.0 [facility] Comment on above: Performed By: #### Cheri BARLOW ####[facility] Ubjtgtrjej2612 [place] [id number]. Shahbaz Rogel LYMPHM # 0.64 103/ul Critically low 1.20-3.80 [facility] Comment on above: Performed By: #### Cheri BARLOW ####[facility] Wkmmptrutd6002 [place] [id number]. Shahbaz Rogel LYMPHM% 23.0 % Normal 20.5-60.0 [facility] Comment on above: Performed By: #### Cheri BARLOW ####[facility] Hrgrgnsmhe8717 [place] [id number]. Shahbaz Rogel MCH 28.0 pg Normal 26.7-34.0 [facility] Comment on above: Performed By: #### Cheri BARLOW ####[facility] Hnxvfiuztx4529 [place] [id number]. Shahbaz Rogel MCHC 32.9 g/dl Normal 29.9-35.2 [facility] Comment on above: Performed By: #### Cheri BARLOW ####[facility] Shlehaywvp4051 [place] [id number]. Shahbaz Rogel MCV 84.9 fL Normal 81.0-99.0 [facility] Comment on above: Performed By: #### Cheri BARLOW ####[facility] Hubujbdwmx8370 [place] [id number]. Shahbaz Rogel METAMYELOCYTE # Normal [facility] Comment on above: Performed By: #### Cheri BARLOW ####[facility] Mnlsejxehr0781 [place] [id number]. Shahbaz Rogel METAMYELOCYTE % Normal [facility] Comment on above: Performed By: #### Cheri BARLOW ####[facility] Ydlboorbhw3658 [place] [id number]. Shahbaz Rogel MONOM# 0.31 103/ul Normal 0.30-0.80 [facility] Comment on above: Performed By: #### Cheri BARLOW ####[facility] Cqmdiaeotd5498 [place] [id number]. Shahbaz Rogel MONOM% 11.0 % Normal 1.7-12.0 [facility] Comment on above: Performed By: #### C CAIN ####[facility] Sklyizousb9118 [place] [id number]. Shahbaz Rogel MPV 9.5 fL Normal 9.5-13.5 [facility] Comment on above: Performed By: #### C CAIN ####[facility] Wdvddefqly5174 [place] [id number]. Shahbaz Rogel MYELOCYTE # Normal [facility] Comment on above: Performed By: #### C CAIN ####[facility] Xrjkymrlns4225 [place] [id number]. Shahbaz Rogel MYELOCYTE % Normal [facility] Comment on above: Performed By: #### C CAIN ####[facility] Naavdiqkjx695[address] [place], [place] [address]Dr. Shahbaz Rogel NRBC Normal [facility] Comment on above: Performed By: #### C CAIN ####[facility] Koucmvrcsl[address] [place], [place] [address]Dr. Shahbaz Rogel PLT 197 103/ul Normal 150-450 [facility] Comment on above: Performed By: #### C CAIN ####[facility] Yffadulxuw[address] [place], [place] [address]Dr. Shahbaz Rogel RBC 5.04 106/ul Normal 4.20-5.40 [facility] Comment on above: Performed By: #### C CAIN ####[facility] Rygauypqcv7343 [place] [id number]. Shahbaz Rogel RDW 13.2 % Normal 11.0-15.0 [facility] Comment on above: Performed By: #### C CAIN ####[facility] Sluhrrnemr[address] [place], [place] [address]Dr. Shahbaz Rogel SEG # 1.82 103/ul Normal 1.40-6.50 [facility] Comment on above: Performed By: #### C CAIN ####[facility] Heyxzmybpr61[address] [place], [place] [address]Dr. Shahbaz Rogel SEG % 65.0 % Normal 43.0-75.0 [facility] Comment on above: Performed By: #### C CAIN ####[facility] Uqeirhuzfs8478 [place] [id number]. Shahbaz Rogel WBC 2.8 103/ul Critically low 4.0-11.0 [facility] Comment on above: Performed By: #### C CAIN ####[facility] Qwcksqfqju2402 [place] [id number]. Shahbaz Rogel Covid-19 PCR (CVDTB)on SARS-CoV-2 (COVID-19) RNA PAVAN+probe Ql (Unsp spec) Not detected Normal NOT DETECTED [facility] Comment on above: Result Comment: When diagnostic [...] for this test is supported by the [place] of [employer] and [employer] Service's declaration that [...] longer be used). Performed By: #### C VDTB ####[facility] Frznqefaux5165 [place], [place] [address]Oo. Shahbaz Rogel D-DIMERon 01-02-2023 D-DIMER 0.38 mg/L FEU Normal <=0.59 [facility] Comment on above: Performed By: #### D DIM ####[facility] Hgzkzyhbdf1406 [place], [place] [address]Tc. Shahbaz Rogel D-DIMER COMMENTS SEE BELOW Normal [facility] Comment on above: Result Comment: Incr eases [...] generalized hospitalization. Performed By: #### D DIM ####[facility] Yayqprcetz169[address] [place], [place] [address]Dr. Shahbaz Rogel LACTATE/LACTIC ACIDon 2022 Lactate [Moles/Vol] 2.1 mmol/L Critically high 0.4-2.0 [facility] Comment on above: Performed By: #### L ACT ####[facility] Fpedvzunbu95[address] [place], [place] [address]Dr. Shahbaz Rogel PROF CHEM 8 (BAS METB)on Anion gap [Moles/Vol] 14.3 mmol/L Normal [facility] Comment on above: Performed By: #### C EZEKIEL, BMP ####[facility] Zbrsokcsmn[address] [place], [place] [address]Dr. Shahbaz Rogel Calcium [Mass/Vol] 9.0 mg/dL Normal 8.5-10.1 [facility] Comment on above: Performed By: #### C EZEKIEL, BMP ####[facility] Zhlmcxuvkz23[address] [place], [place] [address]Dr. Shahbaz Rogel Chloride [Moles/Vol] 102 mmol/L Normal 98-107 [facility] Comment on above: Performed By: #### C EZEKIEL, BMP ####[facility] Cqvbzbdcyc954[address] [place], [place] [address]Dr. Shahbaz Rogel CO2 [Moles/Vol] 25.5 mmol/L Normal 21.0-32.0 [facility] Comment on above: Performed By: #### C EZEKIEL, BMP ####[facility] Uuqpddmilf[address] [place], [place] [address]Dr. Shahbaz Rogel Creatinine [Mass/Vol] 1.01 mg/dL Normal 0.55-1.02 [facility] Comment on above: Performed By: #### C MADM, BMP ####[facility] Wycqfwuzyr5731 [place] [address]Dr. Shahbaz Rogel EGFR-AF GUAMANIAN >60 Normal >=60 [facility] Comment on above: Performed By: #### C MADM, BMP ####[facility] Tgskxyhwoi7737 [place] [id number]. Sahhbaz Rogel EGFR-NON AF GUAMANIAN 56 mL/min/1.73m2 Critically low >=60 [facility] Comment on above: Performed By: #### C MADM, BMP ####[facility] Eocbfwxipe4706 [place] [address]Dr. Lilajarrod Juan F Glucose [Mass/Vol] 105 mg/dL Normal 74-106 [facility] Comment on above: Performed By: #### C JOSSYM, BMP ####[facility] Fclpnmnmcs82[address] [place], [place] [address]Dr. Lilajarrod Juan F Potassium [Moles/Vol] 3.8 mmol/L Normal 3.5-5.1 [facility] Comment on above: Performed By: #### C EZEKIEL, BMP ####[facility] Dzfecnnnrn34[address] [place], [place] [address]Dr. Shahbaz Juan F Sodium [Moles/Vol] 138 mmol/L Normal 136-145 [facility] Comment on above: Performed By: #### C EZEKIEL, BMP ####[facility] Oxsclxwfeg877[address] [place], [place] [address]Dr. Lilajarrod Rogel Urea nitrogen [Mass/Vol] 9.0 mg/dL Normal 7.0-18.0 [facility] Comment on above: Performed By: #### C JOSSYM, BMP ####[facility] Tnlaxwrnaf4526 [place] [address]Dr. Lilajarrod Juan F Urea nitrogen/Creatinine [Mass ratio] 8.9 mg/mg Normal [facility] Comment on above: Performed By: #### C MADM, BMP ####[facility] Xegxaqxiur417[address] [place], [place] [address]Dr. Lilajarrod Juan F XR CHEST 1 Von 01-02-2023 XR CHEST 1 V Normal [facility] INSULINon 11-02-2022 Insulin 6.0 uIU/mL Normal 2.6-24.9 [facility] Comment on above: Performed By: #### I NSULIN ####[facility] Cyttnlhvur0374 [place] [address]Dr. Shahbaz Juan F CBC AUTO DIFFon 11-01-2022 BASO # 0.0 103/ul Normal 0.0-0.1 [facility] Comment on above: Performed By: #### C BC ####[facility] Emqbysvnam89[address] [place], [place] [address]Dr. Shahbaz Rogel Basophils/100 WBC (Bld) 0.5 % Normal 0.2-2.0 [facility] Comment on above: Performed By: #### C BC ####[facility] Gqihkhhaou825[address] [place], [place] [address]Dr. Shahbaz Rogel EO # 0.2 103/ul Normal 0.0-0.7 [facility] Comment on above: Performed By: #### C BC ####[facility] Svgvukaaan03[address] [place], [place] [address]Dr. Shahbaz Rogel Eosinophils/100 WBC (Bld) 5.2 % Normal 0.9-7.0 [facility] Comment on above: Performed By: #### C BC ####[facility] Pnwntbdrsc190[address] [place], [place] [address]Dr. Shahbaz Rogel Erythrocyte distribution width (RBC) [Ratio] 12.7 % Normal 11.0-15.0 [facility] Comment on above: Performed By: #### C BC ####[facility] Nyitubauiu196[address] [place], [place] [address]Dr. Shahbaz Rogel Hematocrit (Bld) [Volume fraction] 46.4 % Normal 36.0-48.0 [facility] Comment on above: Performed By: #### C BC ####[facility] Ikyyfmkugc670[address] [place], [place] [address]Dr. Shahbaz Rogel Hemoglobin (Bld) [Mass/Vol] 14.9 g/dL Normal 12.0-16.0 [facility] Comment on above: Performed By: #### C BC ####[facility] Yiqhzeqiig7997 [place] [address]Dr. Shahbaz Rogel IG # 0.00 10e3/ul Normal 0.00-0.03 [facility] Comment on above: Performed By: #### C BC ####[facility] Qbwafadivl8903 [place] [address]Dr. Shahbaz Rogel IG % 0.0 % Normal 0.0-0.5 [facility] Comment on above: Performed By: #### C BC ####[facility] Vcucitzffe1839 [place] [address]Dr. Shahbaz Rogel LYMPH # 1.1 103/ul Critically low 1.2-3.8 [facility] Comment on above: Performed By: #### C BC ####[facility] Mebntjxkmi8165 [place] [address]Dr. Lilajarrod Rogel Lymphocytes/100 WBC (Bld) 25.5 % Normal 20.5-60.0 [facility] Comment on above: Performed By: #### C BC ####[facility] Rbjcckjudk6575 [place] [address]Dr. Shahbaz Rogel MANUAL DIFF REQ NO Normal [facility] Comment on above: Performed By: #### C BC ####[facility] Klofowekqx[address] [place], [place] [address]Dr. Shahbaz Rogel MCH (RBC) [Entitic mass] 27.8 pg Normal 26.7-34.0 [facility] Comment on above: Performed By: #### C BC ####[facility] Nzupwfzuju040[address] [place], [place] [address]Dr. Shahbaz Rogel MCHC (RBC) [Mass/Vol] 32.1 g/dL Normal 29.9-35.2 [facility] Comment on above: Performed By: #### C BC ####[facility] Chwsegnogv215[address] [place], [place] [address]Dr. Shahbaz Rogel MCV (RBC) [Entitic vol] 86.6 fL Normal 81.0-99.0 [facility] Comment on above: Performed By: #### C BC ####[facility] Aqpjiolbme7676 [place] [id number]. Shahbaz Rogel MONO # 0.2 103/ul Critically low 0.3-0.8 [facility] Comment on above: Performed By: #### C BC ####[facility] Ekcezovmgn7133 [place] [id number]. Shahbaz Rogel Monocytes/100 WBC (Bld) 5.4 % Normal 1.7-12.0 [facility] Comment on above: Performed By: #### C BC ####[facility] Arebgtohhy[address] [place], [place] [address]Dr. Shahbaz Rogel NEUT # 2.7 103/ul Normal 1.4-6.5 [facility] Comment on above: Performed By: #### C BC ####[facility] Kdsjjgnpph[address] [place], [place] [address]Dr. Shahbaz Rogel Neutrophils/100 WBC (Bld) 63.4 % Normal 43.0-75.0 [facility] Comment on above: Performed By: #### C BC ####[facility] E[address] [place], [place] [address]Dr. Shahbaz Rogel Platelet mean volume (Bld) [Entitic vol] 9.4 fL Critically low 9.5-13.5 [facility] Comment on above: Performed By: #### C BC ####[facility] Dtiwtnwm[address] [place], [place] [address]Dr. Shahbaz Rogel PLT 216 103/ul Normal 150-450 [facility] Comment on above: Performed By: #### C BC ####[facility] Mwaf[address] [place], [place] [address]Dr. Shahbaz Rogel RBC 5.36 106/ul Normal 4.20-5.40 [facility] Comment on above: Performed By: #### C BC ####[facility] [address] [place], [place] [address]Dr. Shahbaz Rogel WBC 4.2 103/ul Normal 4.0-11.0 [facility] Comment on above: Performed By: #### C BC ####[facility] [address] [place] [address]Dr. Shahbaz Rogel FREE THYROXINE INDEX T7on FTI 2.92 Normal 1.30-4.50 [facility] Comment on above: Performed By: #### C MP, LIPID, T7, TSH ####[facility] [address] [place] [address]Dr. Shahbaz Rogel T3U 37.0 % Normal 30.0-39.0 [facility] Comment on above: Performed By: #### C MP, LIPID, T7, TSH ####[facility] [address]ctsrx[address] [place] [address]Dr. Lilajarrod Juan F T4 [Mass/Vol] 7.90 ug/dL Normal 4.80-13.90 [facility] Comment on above: Performed By: #### C MP, LIPID, T7, TSH ####[facility] [address] [place], [place] [address]Dr. Shahbaz Rogel GLYCOHEMOGLOBIN A1Con 2022 ADA RECOMMENDATION SEE BELOW Normal [facility] Comment on above: Result Comment: ADA RECOMMENDED LIMIT 4.0 - 6.0 ADA THERAPEUTIC TARGET < 7.0 ACTION SUGGESTED > 7.0 Performed By: #### A 1C ####[facility] Edz[address] [place], [place] [address]Dr. Shahbaz Juan F Glucose [Mass/Vol] 120 mg/dL Normal [facility] Comment on above: Performed By: #### A 1C ####[facility] [address]tf[address] [place], [place] [address]Dr. Shahbaz Rogel HbA1c (Bld) [Mass fraction] 5.8 % Normal 4.5-6.2 [facility] Comment on above: Performed By: #### A 1C ####[facility] Adntjw[address]xa[address] [place], [place] [address]Dr. Lilajarrod Juan F IRONon 11-01-2022 Iron [Mass/Vol] 54.0 ug/dL Normal 50.0-170.0 [facility] Comment on above: Performed By: #### I GRIS ####[facility] Dmotudwxis[address] [place], [place] [address]Dr. Shahbaz Rogel LIPID PROFILEon 11-01-2022 CHOL-HDL RATIO NORM SEE BELOW Normal [facility] Comment on above: Result Comment: 3.3 - 4.4 LOW RISK 4.4 - 7.1 AVERAGE RISK 7.1 - 11.0 MODERATE RISK >11.0 HIGH RISK Performed By: #### C MP, LIPID, T7, TSH ####[facility] [address] [place] [id number]. Shahbaz Rogel Cholesterol [Mass/Vol] 203 mg/dL Critically high <=200 [facility] Comment on above: Performed By: #### C MP, LIPID, T7, TSH ####[facility] [address] [place] [address]Dr. Lilajarrod Juan F Cholesterol in HDL [Mass/Vol] 42 mg/dL Normal 40-60 [facility] Comment on above: Performed By: #### C MP, LIPID, T7, TSH ####[facility] [address] [place] [address]Dr. Lilajarrod Juan F Cholesterol in LDL [Mass/Vol] 121.4 mg/dL Normal [facility] Comment on above: Performed By: #### C MP, LIPID, T7, TSH ####[facility] [address] [place] [address]Dr. Shahbaz Juan F Cholesterol.total/Chol esterol in HDL [Mass ratio] 4.8 {ratio} Normal [facility] Comment on above: Performed By: #### C MP, LIPID, T7, TSH ####[facility] [address] [place] [id number]. Shahbaz Rogel HDL NORMAL > or = 60 mg/dl - LO W CARDIOVASCULAR RISK <40 mg/dl - HIGH CARDIOVASCULAR RISK Normal [facility] Comment on above: Performed By: #### C MP, LIPID, T7, TSH ####[facility] [address] [place] [address]Dr. Shahbaz Rogel LDL CALC NORMAL SEE BELOW Normal [facility] Comment on above: Result Comment: <100 mg/dl OPTIMAL 100 - 129 mg/dl NEAR OR ABOVE OPTIMAL 130 - 159 mg/dl BORDERLINE HIGH 160 - 189 mg/dl HIGH >190 mg/dl VERY HIGH Performed By: #### C MP, LIPID, T7, TSH ####[facility] [address] [place] [address]Dr. Shahbaz Rogel Triglyceride [Mass/Vol] 198 mg/dL Critically high <=150 [facility] Comment on above: Performed By: #### C MP, LIPID, T7, TSH ####[facility] [address] [place] [address]Dr. Shahbaz Rogel VLDL CALC 39.6 mg/dL Normal [facility] Comment on above: Performed By: #### C MP, LIPID, T7, TSH ####[facility] [address]kj[address] [place] [address]Dr. Shahbaz Rogel PROF 14(COMP METB)on 023 Albumin [Mass/Vol] 4.1 g/dL Normal 3.4-5.0 [facility] Comment on above: Performed By: #### C MP, LIPID, T7, TSH ####[facility] [address]qrp[address] [place] [address]Dr. Shahbaz Rogel Albumin/Globulin [Mass ratio] 1.0 {ratio} Normal [facility] Comment on above: Performed By: #### C MP, LIPID, T7, TSH ####[facility] [address] [place] [address]Dr. Shahbaz Rogel ALP [Catalytic activity/Vol] 126 U/L Critically high 46-116 [facility] Comment on above: Performed By: #### C MP, LIPID, T7, TSH ####[facility] [address]ts[address]xdtfv[address] [place] [address]Dr. Shahbaz Rogel ALT [Catalytic activity/Vol] 30 U/L Normal 14-59 [facility] Comment on above: Performed By: #### C MP, LIPID, T7, TSH ####[facility] [address] [place] [address]Dr. Shahbaz Rogel Anion gap [Moles/Vol] 12.3 mmol/L Normal [facility] Comment on above: Performed By: #### C MP, LIPID, T7, TSH ####[facility] W[address] [place] [address]Dr. Shahbaz Rogel AST [Catalytic activity/Vol] 25 U/L Normal 15-37 [facility] Comment on above: Performed By: #### C MP, LIPID, T7, TSH ####[facility] [address]vxyf[address] [place] [address]Dr. Shahbaz Rogel Bilirubin [Mass/Vol] 0.5 mg/dL Normal 0.2-1.0 [facility] Comment on above: Performed By: #### C MP, LIPID, T7, TSH ####[facility] Benwo[address]whmf[address] [place], [place] [address]Dr. Shahbaz Rogel Calcium [Mass/Vol] 9.4 mg/dL Normal 8.5-10.1 [facility] Comment on above: Performed By: #### C MP, LIPID, T7, TSH ####[facility] [address]hrli[address] [place], [place] [address]Dr. Shahbaz Rogel Chloride [Moles/Vol] 104 mmol/L Normal 98-107 [facility] Comment on above: Performed By: #### C MP, LIPID, T7, TSH ####[facility] [address] [place] [address]Dr. Shahbaz Rogel CO2 [Moles/Vol] 29.6 mmol/L Normal 21.0-32.0 [facility] Comment on above: Performed By: #### C MP, LIPID, T7, TSH ####[facility] [address] [place], [place] [address]Dr. Shahbaz Rogel Creatinine [Mass/Vol] 0.91 mg/dL Normal 0.55-1.02 [facility] Comment on above: Performed By: #### C MP, LIPID, T7, TSH ####[facility] Nuuwffsfs[address] [place], [place] [address]Dr. Shahbaz Rogel EGFR-AF GUAMANIAN >60 Normal >=60 [facility] Comment on above: Performed By: #### C MP, LIPID, T7, TSH ####[facility] [address]duofi[address] [place], [place] [address]Dr. Shahbaz Rogel EGFR-NON AF GUAMANIAN >60 Normal >=60 [facility] Comment on above: Performed By: #### C MP, LIPID, T7, TSH ####[facility] [address]yzlo[address] [place] [address]Dr. Shahbaz Rogel Globulin (S) [Mass/Vol] 4.0 g/dL Normal [facility] Comment on above: Performed By: #### C MP, LIPID, T7, TSH ####[facility] [address] [place] [address]Dr. Shahbaz Rogel Glucose [Mass/Vol] 85 mg/dL Normal 74-106 [facility] Comment on above: Performed By: #### C MP, LIPID, T7, TSH ####[facility] [address]nfutimgt[address] [place] [address]Dr. Shahbaz Rogel Potassium [Moles/Vol] 3.9 mmol/L Normal 3.5-5.1 [facility] Comment on above: Performed By: #### C MP, LIPID, T7, TSH ####[facility] [address] [place], [place] [address]Dr. Shahbaz Rogel Protein [Mass/Vol] 8.1 g/dL Normal 6.4-8.2 [facility] Comment on above: Performed By: #### C MP, LIPID, T7, TSH ####[facility] [address] [place], [place] [address]Dr. Shahbaz Rogel Sodium [Moles/Vol] 142 mmol/L Normal 136-145 [facility] Comment on above: Performed By: #### C MP, LIPID, T7, TSH ####[facility] [address]zorv[address] [place] [address]Dr. Lilalan Rogel Urea nitrogen [Mass/Vol] 9.0 mg/dL Normal 7.0-18.0 [facility] Comment on above: Performed By: #### C MP, LIPID, T7, TSH ####[facility] [address]swxd[address]yl[address] [place] [address]Dr. Shahbaz Rogel Urea nitrogen/Creatinine [Mass ratio] 9.9 mg/mg Normal [facility] Comment on above: Performed By: #### C MP, LIPID, T7, TSH ####[facility] [address] [place] [id number]. Shahbaz Rogel TSHon 11-01-2022 TSH 0.045 uIU/mL Critically low 0.358-3.74 0 [facility] Comment on above: Performed By: #### C MP, LIPID, T7, TSH ####[facility] [address] [place], [place] [address]Gs. Shahbaz Rogel XR HUMERUS LT MIN 2Von 10-01 XR HUMERUS LT MIN 2V Normal [facility] XR LSPINE 2_3 VIEWSon 2021 XR LSPINE 2_3 VIEWS Normal [facility] XR CHEST 1 Von 08-25-2022 XR CHEST 1 V Normal [facility] ACID FAST SMEAR AND CXon Acid Fast Culture Negative Normal [facility] Comment on above: Result Comment: No a ninfa fast bacilli isolated after 6 weeks. Performed By: #### A FB ####[facility] Ravcdnxtdy[address] [place] [address]Dr. Shahbaz Rogel Acid Fast Smear Negative Normal [facility] Comment on above: Performed By: #### A FB ####[facility] [address] [place] [address]Dr. Shahbaz Rogel [employer] Specimen Processing Concentration Normal [facility] Comment on above: Performed By: #### A FB ####[facility] [address] [place] [address]Dr. Lilajarrod Rogel Bacteria identified Anaer cx Nom (Unsp spec)Ordered By: Rodolfo Harley on 08-13-2022 Anaerobic microbial culture No Anaerobes Isolated [address] [facility] Basophils Auto (Bld) [#/Vol] Ordered By: Rodolfo Harley on 08-12-2022 Basophils (Bld) [#/Vol] 0.0 10*3/uL 0.0-0.2 [facility] Basophils/100 WBC Auto (Bld) Ordered By: Rodolfo Harley on 08-12-2022 Basophils/100 WBC (Bld) 0.4 % . [facility] Creatinine and Glomerular fi ltration rate.predicted panel (S/P/Bld)Ordered By: Rodolfo Harley on 08-12-2022 Creatinine [Mass/Vol] 0.74 mg/dL 0.44-1.03 [facility] Eosinophils Auto (Bld) [#/Vo l]Ordered By: Rodolfo Harley on 08-12-2022 Eosinophils (Bld) [#/Vol] 0.0 10*3/uL 0.0-0.45 [facility] Eosinophils/100 WBC Auto (Bl d)Ordered By: Rodolfo Harley on 08-12-2022 Eosinophils/100 WBC (Bld) 0.0 % . [facility] Erythrocyte distribution wid th Auto (RBC) [Ratio]Ordered By: Rodolfo Harley on 08-12-2022 Erythrocyte distribution width (RBC) [Ratio] 14.2 % 11.9-15.3 [facility] Estimated glomerular filtrat ion rate (GFR) non- AmericanOrdered By: Rodolfo Harley on 08-12-2022 GFR/1.73 sq M.predicted among non-blacks MDRD (S/P/Bld) [Vol rate/Area] > 60 mL/Min [facility] Hematocrit Auto (Bld) [Volum e fraction]Ordered By: Rodolfo Harley on 08-12-2022 Hematocrit (Bld) [Volume fraction] 38.0 % 34.0-46.4 [facility] Hemoglobin [Mass/volume] in BloodOrdered By: Rodolfo Harley on 08-12-2022 Hemoglobin (Bld) [Mass/Vol] 12.5 g/dL 11.8-15.4 [facility] - Hematology and Cell countsOrdered By: Rodolfo Harley on 08-12-2022 Nucleated RBC/100 WBC (Bld) [Ratio] 0.1 % 0-0.5 [facility] Leukocytes [#/volume] in Blo od by Automated countOrdered By: Rodolfo Harley on 08-12-2022 WBC (Bld) [#/Vol] 5.8 10*3/uL 4.5-11.0 [facility] Lymphocytes Auto (Bld) [#/Vo l]Ordered By: Rodolfo Harley on 08-12-2022 Lymphocytes (Bld) [#/Vol] 0.7 10*3/uL 1.00-4.8 [facility] Lymphocytes/100 WBC Auto (Bl d)Ordered By: Rodolfo Harley on 08-12-2022 Lymphocytes/100 WBC (Bld) 11.4 % . [facility] MCH Auto (RBC) [Entitic mass ]Ordered By: Rodolfo Harley on 08-12-2022 MCH (RBC) [Entitic mass] 28.1 pg 24.7-34.3 [facility] MCHC Auto (RBC) [Mass/Vol]Or dered By: Rodolfo Harley on 08-12-2022 MCHC (RBC) [Mass/Vol] 32.9 g/dL 32.0-35.0 [facility] MCV Auto (RBC) [Entitic vol] Ordered By: Rodolfo Harley on 08-12-2022 MCV (RBC) [Entitic vol] 85.4 fL 80-100 [facility] Monocytes Auto (Bld) [#/Vol] Ordered By: Rodolfo Harley on 08-12-2022 Monocytes (Bld) [#/Vol] 0.3 10*3/uL 0.0-0.8 [facility] Monocytes/100 WBC Auto (Bld) Ordered By: Rodolfo Harley on 08-12-2022 Monocytes/100 WBC (Bld) 4.8 % . [facility] Neutrophils Auto (Bld) [#/Vo l]Ordered By: Rodolfo Harley on 08-12-2022 Neutrophils (Bld) [#/Vol] 4.8 10*3/uL 1.8-7.7 [facility] Neutrophils/100 WBC Auto (Bl d)Ordered By: Rodolfo Harley on 08-12-2022 Neutrophils/100 WBC (Bld) 83.4 % . [facility] No Panel InformationOrdered By: Rodolfo Harley on 08-12-2022 Estimated GFR () > 60 mL/Min [facility] Comment on above: GFR estimated refere nce range: According to KDOQI guidelines, <60 ml/min/1.73m2 is sufficient to diagnose a patient with chronic kidney disease. Pharmacy Creatinine Clearance (Chem 59.45 [facility] Platelet mean volume Auto (B ld) [Entitic vol]Ordered By: Rodolfo Harley on 08-12-2022 Platelet mean volume (Bld) [Entitic vol] 7.9 fL 6.3-10.7 [facility] Platelets Auto (Bld) [#/Vol] Ordered By: Rodolfo Harley on 08-12-2022 Platelets (Bld) [#/Vol] 196 10*3/uL 150-450 [facility] RBC Auto (Bld) [#/Vol]Ordere d By: Rodolfo Harley on 08-12-2022 RBC (Bld) [#/Vol] 4.45 10*6/uL 3.60-5.00 [facility] Serum or plasma anion gap de terminationOrdered By: Rodolfo Harley on 08-12-2022 Anion gap [Moles/Vol] 7.5 mmol/L 6.0-15.0 [facility] Serum or plasma calcium dagoberto urement (mass/volume)Ordered By: Rodolfo Harley on 08-12-2022 Calcium [Mass/Vol] 8.7 mg/dL 8.2-10.2 [facility] Serum or plasma chloride anahy surement (moles/volume)Ordered By: Rodolfo Harley on 08-12-2022 Chloride [Moles/Vol] 108 mmol/L 95-114 [facility] Serum or plasma glucose daogberto urement (mass/volume)Ordered By: Rodolfo Harley on 08-12-2022 Glucose [Mass/Vol] 133 mg/dL 70-100 [facility] Comment on above: ADA recommended refe rence rangeRandom Glucose Reference Range is dependent on time and content of last meal. Glucose of more than 200 mg/dL in a nonstressed, ambulatory subject supports the diagnosis of Diabetes Mellitus. Serum or plasma potassium me asurement (moles/volume)Ordered By: Rodolfo Harley on 08-12-2022 Potassium [Moles/Vol] 3.7 mmol/L 3.5-5.1 [facility] Serum or plasma sodium measu rement (moles/volume)Ordered By: Rodolfo Harley on 08-12-2022 Sodium [Moles/Vol] 139 mmol/L 136-146 [facility] Serum or plasma total carbon dioxide measurement (moles/volume)Ordered By: Rodolfo Harley on 08-12-2022 CO2 [Moles/Vol] 27.2 mmol/L 22.0-30.0 [facility] Serum or plasma urea nitroge n measurement (mass/volume)Ordered By: Rodolfo Harley on 08-12-2022 Urea nitrogen [Mass/Vol] 14 mg/dL 9-23 [facility] ABO and Rh group post transf usion reaction Nom (Bld)Ordered By: Rodolfo Harley on 08-10-2022 Microscopic observation Gram stain Nom (Unsp spec) [facility] AFB cultureOrdered By: Sissy Harley on 08-10-2022 Mycobacterium sp identified Org specific cx Nom (Unsp spec) [facility] AFB smearOrdered By: Rodolfo Harley on 08-10-2022 Microscopic observation Smear Nom (Unsp spec) [facility] Aerobic cultureOrdered By: Margie Harley on 08-10-2022 Bacteria identified Aer cx Nom (Unsp spec) No Growth 2 Days [facility] Anaerobic cultureOrdered By: Rodolfo Harley on 08-10-2022 Bacteria identified Anaer cx Nom (Unsp spec) No Anaerobes Isolated [address] [facility] Arterial blood standard base excess determination by calculationOrdered By: Rodolfo Harley on 08-10-2022 Base excess standard Calc (BldA) [Moles/Vol] 5 mmol/L -2-3 [facility] Blood carbon dioxide, total measurement by calculation (moles/volume)Ordered By: Rodolfo Harley on 08-10-2022 CO2 Calc (Bld) [Moles/Vol] 30 mmol/L 23-[address] [facility] [address] biopsyOrdered By: Rodolfo Harley on 08-10-2022 Hematocrit (Bld) [Volume fraction] 40.0 % 38.0-51.0 [facility] Fungal cultureOrdered By: Rolanda Harley on 08-10-2022 Fungus identified Cx Nom (Unsp spec) [facility] Glucose Glucometer (BldC) [M ass/Vol]Ordered By: Rodolfo Harley on 08-10-2022 Glucose [Mass/Vol] 126 mg/dL 70-105 [facility] Gram stain for investigation of transfusion reactionOrdered By: Rodolfo Harley on 08-10-2022 Microscopic observation Gram stain Nom (Unsp spec) [facility] Hemoglobin Calc (Bld) [Mass/ Vol]Ordered By: Rodolfo Harley on 08-10-2022 Hemoglobin (Bld) [Mass/Vol] 13.6 g/dL 12.0-17.0 [facility] Monocyte %Ordered By: Jean Harley on 08-10-2022 Monocyte % 39.9 mm[Hg] 35-51 [facility] Monocyte % 45 mm[Hg] 80-105 [facility] No Panel InformationOrdered By: Rodolfo Harley on 08-10-2022 Chlamydia psittaci Antibodies <1:10 Neg:<1:10 [facility] Comment on above: This test was develo ped and its performance characteristicsdetermined by [employer]. It has not been cleared or approvedby the Food and Drug Administration. The FDA hasdetermined that such clearance or approval is notnecessary.Performed at: [address] [id number] Director: Shelly Vargas MD, Phone: [phone] Potassium (Bld) [Moles/Vol]O rdered By: Rodolfo Harley on 08-10-2022 Potassium [Moles/Vol] 3.8 mmol/L 3.5-4.9 [facility] Sodium (Bld) [Moles/Vol]Orde red By: Rodolfo Harley on 08-10-2022 Sodium [Moles/Vol] 141 mmol/L 138-146 [facility] Whole blood bicarbonate dagoberto urementOrdered By: Rodolfo Harley on 08-10-2022 HCO3 (Bld) [Moles/Vol] 29.1 mmol/L 22.0-28.0 [facility] Whole blood ionized calcium measurement (moles/volume)Ordered By: Rodolfo Harley on 08-10-2022 Calcium.ionized (Bld) [Moles/Vol] 1280 mmol/L 1.12-1.32 [facility] Whole blood oxygen saturatio n measurementOrdered By: Rodolfo Harley on 08-10-2022 Oxygen saturation in Blood 84 % 95-98 [facility] Comment on above: Reference ranges ref lect baseline specimens only Whole blood pHOrdered By: Rolanda Harley on 08-10-2022 pH (Bld) 7.470 Units 7.31-7.45 [facility] Urine culture routineOrdered By: Rodolfo Harley on 08-07-2022 Bacteria identified Cx Nom (U) [address] [facility] Activated partial thrombopla stin time (aPTT) in platelet poor plasma by coagulation aOrdered By: Rodolfo Harley on 08-05-2022 aPTT Coag (PPP) [Time] 35.9 s 25.1-36.5 [facility] Basophils Auto (Bld) [#/Vol] Ordered By: Rodolfo Harley on 08-05-2022 Basophils (Bld) [#/Vol] 0.0 10*3/uL 0.0-0.2 [facility] Basophils/100 WBC Auto (Bld) Ordered By: Rodolfo Harley on 08-05-2022 Basophils/100 WBC (Bld) 0.5 % . [facility] Body fluid albumin measureme nt (mass/volume)Ordered By: Rodolfo Harley on 08-05-2022 Albumin (Body fld) [Mass/Vol] 3.8 g/dL 3.2-5.5 [facility] COVID-19 Positive/NegativeOr dered By: Rodolfo Harley on 08-05-2022 SARS-CoV-2 (COVID-19) N gene PAVAN+probe Ql (Resp) Negative Negative [facility] Comment on above: Testing for SARS-CoV -2 by RT-PCRThis test was developed and its performance characteristics determined by [employer] ([employer]) and validated at the [facility]. This test has not been FDA [...] on 08-05-2022 Creatinine [Mass/Vol] 0.97 mg/dL 0.44-1.03 [facility] Eosinophils Auto (Bld) [#/Vo l]Ordered By: Rodolfo Harley on 08-05-2022 Eosinophils (Bld) [#/Vol] 0.2 10*3/uL 0.0-0.45 [facility] Eosinophils/100 WBC Auto (Bl d)Ordered By: Rodolfo Harley on 08-05-2022 Eosinophils/100 WBC (Bld) 4.9 % . [facility] Erythrocyte distribution wid th Auto (RBC) [Ratio]Ordered By: Rodolfo Harley on 08-05-2022 Erythrocyte distribution width (RBC) [Ratio] 14.5 % 11.9-15.3 [facility] Estimated glomerular filtrat ion rate (GFR) non- AmericanOrdered By: Rodolfo Harley on 08-05-2022 GFR/1.73 sq M.predicted among non-blacks MDRD (S/P/Bld) [Vol rate/Area] 59 mL/Min [facility] FUNGAL CULTUREon 08-05-2022 Fungus (Mycology) Culture Final report Abnormal [facility] Comment on above: Performed By: #### C XFUN ####[facility] [address] [place] [address]DrChen Rogel Fungus Stain Final report Normal [facility] Comment on above: Performed By: #### C XFUN ####[facility] [address] [place] [address]DrChen Rogel Result 1 Comment Abnormal [facility] Comment on above: Result Comment: MILADYS/ Calcofluor preparation: no fungus observed. Performed By: #### C XFUN ####[facility] [address] [place], [place] [address]MjChen Rogel Result Comment: Aspe rgillus versicolor Result 2 Penicillium species Abnormal [facility] Comment on above: Performed By: #### C XFUN ####[facility] [address] [place], [place] [address]NpChen Rogel Globulin Calc (S) [Mass/Vol] Ordered By: Rodolfo Harley on 08-05-2022 Globulin (S) [Mass/Vol] 2.9 g/dL [facility] Hematocrit Auto (Bld) [Volum e fraction]Ordered By: Rodolfo Harley on 08-05-2022 Hematocrit (Bld) [Volume fraction] 43.3 % 34.0-46.4 [facility] Hemoglobin [Mass/volume] in BloodOrdered By: Rodolfo Harley on 08-05-2022 Hemoglobin (Bld) [Mass/Vol] 14.3 g/dL 11.8-15.4 [facility] - CoagulationOrde red By: Rodolfo Harley on 08-05-2022 PT Coag (PPP) [Time] 12.4 s 9.0-12.9 [facility] - Hematology and Cell countsOrdered By: Rodolfo Harley on 08-05-2022 Nucleated RBC/100 WBC (Bld) [Ratio] 0.0 % 0-0.5 [facility] Leukocytes [#/volume] in Blo od by Automated countOrdered By: Rodolfo Harley on 08-05-2022 WBC (Bld) [#/Vol] 3.4 10*3/uL 4.5-11.0 [facility] Lymphocytes Auto (Bld) [#/Vo l]Ordered By: Rodolfo Harley on 08-05-2022 Lymphocytes (Bld) [#/Vol] 0.9 10*3/uL 1.00-4.8 [facility] Lymphocytes/100 WBC Auto (Bl d)Ordered By: Rodolfo Harley on 08-05-2022 Lymphocytes/100 WBC (Bld) 27.2 % . [facility] MCH Auto (RBC) [Entitic mass ]Ordered By: Rodolfo Harley on 08-05-2022 MCH (RBC) [Entitic mass] 28.4 pg 24.7-34.3 [facility] MCHC Auto (RBC) [Mass/Vol]Or dered By: Rodolfo Harley on 08-05-2022 MCHC (RBC) [Mass/Vol] 33.1 g/dL 32.0-35.0 [facility] MCV Auto (RBC) [Entitic vol] Ordered By: Rodolfo Harley on 08-05-2022 MCV (RBC) [Entitic vol] 85.9 fL 80-100 [facility] Monocytes Auto (Bld) [#/Vol] Ordered By: Rodolfo Harley on 08-05-2022 Monocytes (Bld) [#/Vol] 0.3 10*3/uL 0.0-0.8 [facility] Monocytes/100 WBC Auto (Bld) Ordered By: Rodolfo Harley on 08-05-2022 Monocytes/100 WBC (Bld) 7.5 % . [facility] Neutrophils Auto (Bld) [#/Vo l]Ordered By: Rodolfo Harley on 08-05-2022 Neutrophils (Bld) [#/Vol] 2.0 10*3/uL 1.8-7.7 [facility] Neutrophils/100 WBC Auto (Bl d)Ordered By: Rodolfo Harley on 08-05-2022 Neutrophils/100 WBC (Bld) 59.9 % . [facility] No Panel InformationOrdered By: Rodolfo Harley on 08-05-2022 Estimated GFR () > 60 mL/Min [facility] [facility] Comment on above: GFR estimated refere nce range: According to KDOQI guidelines, <60 ml/min/1.73m2 is sufficient to diagnose a patient with chronic kidney disease. Pharmacy Creatinine Clearance (Chem N/A [facility] Platelet mean volume Auto (B ld) [Entitic vol]Ordered By: Rodolfo Harley on 08-05-2022 Platelet mean volume (Bld) [Entitic vol] 8.1 fL 6.3-10.7 [facility] Platelet poor plasma interna tional normalized ratio (INR) by coagulation assay (relatOrdered By: Rodolfo Harley on 11-04-2022 INR Coag (PPP) [Relative time] 1.1 {INR} [facility] Comment on above: INR Therapeutic Rang [...] 08-05-2022 Platelets (Bld) [#/Vol] 243 10*3/uL 150-450 [facility] Protein [Mass/volume] in Ser um or PlasmaOrdered By: Rodolfo Harley on 08-05-2022 Protein [Mass/Vol] 6.7 g/dL 6.1-7.9 [facility] RBC Auto (Bld) [#/Vol]Ordere d By: Rodolfo Harley on 08-05-2022 RBC (Bld) [#/Vol] 5.04 10*6/uL 3.60-5.00 [facility] Serum or plasma alanine snyder otransferase measurement without P-5'-P (enzymatic activiOrdered By: Rodolfo Harley on 08-05-2022 ALT No additional P-5'-P [Catalytic activity/Vol] 14 U/L 10-60 [facility] Serum or plasma albumin/glob ulin mass ratioOrdered By: Rodolfo Harley on 08-05-2022 Albumin/Globulin [Mass ratio] 1.3 {ratio} [facility] Serum or plasma alkaline sruthi sphatase measurement (enzymatic activity/volume)Ordered By: Rodolfo Harley on 08-05-2022 ALP [Catalytic activity/Vol] 91 U/L 32-92 [facility] Serum or plasma anion gap de terminationOrdered By: Rodolfo Harley on 08-05-2022 Anion gap [Moles/Vol] 14.3 mmol/L 6.0-15.0 [facility] Serum or plasma aspartate am inotransferase measurement (enzymatic activity/volume)Ordered By: Rodolfo Harley on 08-05-2022 AST [Catalytic activity/Vol] 21 U/L 10- [facility] Serum or plasma calcium dagoberto urement (mass/volume)Ordered By: Rodolfo Harley on 08-05-2022 Calcium [Mass/Vol] 9.5 mg/dL 8.2-10.2 [facility] Serum or plasma chloride anahy surement (moles/volume)Ordered By: Rodolfo Harley on 08-05-2022 Chloride [Moles/Vol] 102 mmol/L 95-114 [facility] Serum or plasma glucose dagoberto urement (mass/volume)Ordered By: Rodolfo Harley on 08-05-2022 Glucose [Mass/Vol] 76 mg/dL 70-100 [facility] Comment on above: ADA recommended refe rence rangeRandom Glucose Reference Range is dependent on time and content of last meal. Glucose of more than 200 mg/dL in a nonstressed, ambulatory subject supports the diagnosis of Diabetes Mellitus. Serum or plasma potassium me asurement (moles/volume)Ordered By: Rodolfo Harley on 08-05-2022 Potassium [Moles/Vol] 3.8 mmol/L 3.5-5.1 [facility] Serum or plasma sodium measu rement (moles/volume)Ordered By: Rodolfo Harley on 08-05-2022 Sodium [Moles/Vol] 138 mmol/L 136-146 [facility] Serum or plasma total biliru bin measurement (mass/volume)Ordered By: Rodolfo Harley on 08-05-2022 Bilirubin [Mass/Vol] 0.7 mg/dL 0.3-1.2 [facility] Serum or plasma total carbon dioxide measurement (moles/volume)Ordered By: Rodolfo Harley on 08-05-2022 CO2 [Moles/Vol] 25.5 mmol/L 22.0-30.0 [facility] Serum or plasma urea nitroge n measurement (mass/volume)Ordered By: Rodolfo Harley on 08-05-2022 Urea nitrogen [Mass/Vol] 12 mg/dL 06-24 [facility] Urine culture routineOrdered By: Rodolfo Harley on 08-05-2022 Bacteria identified Cx Nom (U) [address] [facility] XR ANKLE LT MIN 3 Von 2021 XR ANKLE LT MIN 3 V Normal [facility] BNPon 07-06-2022 Natriuretic peptide B (Bld) [Mass/Vol] 843.0 pg/mL Normal <=900.0 [facility] Comment on above: Performed By: #### B RISK ADVISOR, CRP, CMP ####[facility] [address] [place] [address]Dr. Shahbaz Rogel CBC W MANUAL DIFFon 07-06-20 22 ATYPICAL LYMPH # Normal [facility] Comment on above: Performed By: #### C CAIN ####[facility] [address]ovilgq[address] [place], [place] [address]Dr. Lilalan Rogel ATYPICAL LYMPH % Normal [facility] Comment on above: Performed By: #### C CAIN ####[facility] Gdwnutsfnl[address] [place], [place] [address]Dr. Shahbaz Rogel BAND # 0.0 103/ul Normal 0.0-0.3 [facility] Comment on above: Performed By: #### C CAIN ####[facility] Ipbtirldll[address] [place], [place] [address]Dr. Yilan Rogel BAND % 0 % Normal 0-5 [facility] Comment on above: Performed By: #### C CAIN ####[facility] Uorkprfjac[address] [place], [place] [address]Dr. Shahbaz Rogel BASOM # 0.00 103/ul Normal 0.00-0.10 [facility] Comment on above: Performed By: #### C CAIN ####[facility] Duhouumowd[address] [place], [place] [address]Dr. Shahbaz Rogel BASOM % 0.0 % Critically low 0.2-2.0 [facility] Comment on above: Performed By: #### C BCBRICE ####[facility] Pbcbsmskdm[address] [place], [place] [address]Dr. Yilan Rogel BLAST # Normal [facility] Comment on above: Performed By: #### C CAIN ####[facility] Ysnindmcil[address] [place], [place] [address]Dr. Yilan Rogel BLAST % Normal [facility] Comment on above: Performed By: #### C CAIN ####[facility] [address] [place] [id number]. Shahbaz Rogel CORRECTED WBC Normal 4.0-11.0 [facility] Comment on above: Performed By: #### C CAIN ####[facility] [address]azxloxy[address] [place] [id number]. Shahbaz Rogel EOS # 0.00 103/ul Normal 0.00-0.70 [facility] Comment on above: Performed By: #### C CAIN ####[facility] Njwnmojdde[address] [place] [id number]. Shahbaz Rogel EOS% 0.0 % Critically low 0.9-7.0 [facility] Comment on above: Performed By: #### C CAIN ####[facility] Ewyvwlabne[address] [place], [place] [address]Dr. Shahbaz Rogel HCT 40.3 % Normal 36.0-48.0 [facility] Comment on above: Performed By: #### C CAIN ####[facility] Abatgtitmw[address] [place] [id number]. Shahbaz Rogel HGB 12.7 g/dl Normal 12.0-16.0 [facility] Comment on above: Performed By: #### C CAIN ####[facility] Iwcqcfkkzk[address] [place], [place] [address]Dr. Shahbaz Rogel LYMPHM # 0.41 103/ul Critically low 1.20-3.80 [facility] Comment on above: Performed By: #### C CAIN ####[facility] Ngpmrlvdcb[address] [place], [place] [address]Dr. Shahbaz Rogel LYMPHM% 7.0 % Critically low 20.5-60.0 [facility] Comment on above: Performed By: #### C CAIN ####[facility] O[address]fr[address]npfb[address] [place] [address]Dr. Shahbaz Rogel MCH 28.0 pg Normal 26.7-34.0 [facility] Comment on above: Performed By: #### C CAIN ####[facility] Q[address]rtdwvduo[address] [place] [id number]. Shahbaz Rogel MCHC 31.5 g/dl Normal 29.9-35.2 [facility] Comment on above: Performed By: #### C CAIN ####[facility] Eyhxxlgfad7[address] [place] [id number]. Shahbaz Rogel MCV 89.0 fL Normal 81.0-99.0 [facility] Comment on above: Performed By: #### C CAIN ####[facility] Cfbngrglhx9[address] [place] [id number]. Shahbaz Rogel METAMYELOCYTE # Normal [facility] Comment on above: Performed By: #### C CAIN ####[facility] Nklziezzgc204[address] [place], [place] [address]Dr. Shahbaz Rogel METAMYELOCYTE % Normal [facility] Comment on above: Performed By: #### C CAIN ####[facility] Rhvcywhroh[address] [place], [place] [address]Dr. Shahbaz Rogel MONOM# 0.00 103/ul Critically low 0.30-0.80 [facility] Comment on above: Performed By: #### C CAIN ####[facility] Rovwlqsuyr[address] [place], [place] [address]Dr. Shahbaz Rogel MONOM% 0.0 % Critically low 1.7-12.0 [facility] Comment on above: Performed By: #### C CAIN ####[facility] [address]ppvnprvrh[address] [place], [place] [address]Dr. Shahbaz Rogel MPV 9.8 fL Normal 9.5-13.5 [facility] Comment on above: Performed By: #### C CAIN ####[facility] Hdbisuxteb[address] [place], [place] [address]Dr. Shahbaz Rogel MYELOCYTE # Normal [facility] Comment on above: Performed By: #### C CAIN ####[facility] Z[address]yssvwjbe[address] [place] [id number]. Shahbaz Rogel MYELOCYTE % Normal [facility] Comment on above: Performed By: #### C CAIN ####[facility] Xnzludosuj[address] [place] [id number]. Shahbaz Rogel NRBC Normal [facility] Comment on above: Performed By: #### C CAIN ####[facility] Nqyurwxwum17[address] [place] [id number]. Shahbaz Rogel PLT 187 103/ul Normal 150-450 [facility] Comment on above: Performed By: #### C CAIN ####[facility] Vvxaljolum[address] [place] [id number]. Shahbaz Rogel RBC 4.53 106/ul Normal 4.20-5.40 [facility] Comment on above: Performed By: #### C CAIN ####[facility] [address]ds[address]klqad[address] [place] [id number]. Shahbaz Rogel RDW 13.3 % Normal 11.0-15.0 [facility] Comment on above: Performed By: #### C CAIN ####[facility] Gkgthvboip[address] [place] [id number]. Shahbaz Rogel SEG # 5.49 103/ul Normal 1.40-6.50 [facility] Comment on above: Performed By: #### C CAIN ####[facility] Pexpisfeot[address] [place] [id number]. Shahbaz Rogel SEG % 93.0 % Critically high 43.0-75.0 [facility] Comment on above: Performed By: #### C CAIN ####[facility] Tzvoaldoeg[address] [place] [id number]. Shahbaz Rogel WBC 5.9 103/ul Normal 4.0-11.0 [facility] Comment on above: Performed By: #### C CAIN ####[facility] [address]uyit[address] [place] [phone]. Shahbaz Juan F CRPon 07-06-2022 CRP [Mass/Vol] mg/L Normal <=1.0 [facility] Comment on above: Performed By: #### B RISK ADVISOR, CRP, CMP ####[facility] Eaiozzyjii[address] [place] [phone] Rogel PROF 14(COMP METB)on 022 Albumin [Mass/Vol] 3.4 g/dL Normal 3.4-5.0 [facility] Comment on above: Performed By: #### B RISK ADVISOR, CRP, CMP ####[facility] Yrsbfhpsby[address] [place] [address]Dr. Shahbaz Rogel Albumin/Globulin [Mass ratio] 1.0 {ratio} Normal [facility] Comment on above: Performed By: #### B RISK ADVISOR, CRP, CMP ####[facility] [address]cyxagb[address] [place] [address]Dr. Shahbaz Rogel ALP [Catalytic activity/Vol] 92 U/L Normal 46-116 [facility] Comment on above: Performed By: #### B RISK ADVISOR, CRP, CMP ####[facility] Dxuqribyup214[address] [place], [place] [address]Dr. Shahbaz Rogel ALT [Catalytic activity/Vol] 21 U/L Normal 14-59 [facility] Comment on above: Performed By: #### B RISK ADVISOR, CRP, CMP ####[facility] Pfhwthkpad339[address] [place], [place] [address]Dr. Shahbaz Rogel Anion gap [Moles/Vol] 13.4 mmol/L Normal [facility] Comment on above: Performed By: #### B RISK ADVISOR, CRP, CMP ####[facility] Pfxspslpou[address] [place], [place] [address]Dr. Shahbaz Rogel AST [Catalytic activity/Vol] 16 U/L Normal 15-37 [facility] Comment on above: Performed By: #### B RISK ADVISOR, CRP, CMP ####[facility] Ls[address]ywakxn[address] [place] [address]Dr. Shahbaz Rogel Bilirubin [Mass/Vol] 0.2 mg/dL Normal 0.2-1.0 [facility] Comment on above: Performed By: #### B RISK ADVISOR, CRP, CMP ####[facility] Qrienvqwog[address] [place], [place] [address]Dr. Shahbaz Rogel Calcium [Mass/Vol] 9.3 mg/dL Normal 8.5-10.1 [facility] Comment on above: Performed By: #### B RISK ADVISOR, CRP, CMP ####[facility] Awyq[address]zrhfj[address] [place] [address]Dr. Shahbaz Rogel Chloride [Moles/Vol] 105 mmol/L Normal 98-107 [facility] Comment on above: Performed By: #### B RISK ADVISOR, CRP, CMP ####[facility] Fgpgseemxr[address] [place] [address]Dr. Shahbaz Rogel CO2 [Moles/Vol] 23.2 mmol/L Normal 21.0-32.0 [facility] Comment on above: Performed By: #### B RISK ADVISOR, CRP, CMP ####[facility] Idxfdrogdw9299 [place] [address]Dr. Shahbaz Rogel Creatinine [Mass/Vol] 1.23 mg/dL Critically high 0.55-1.02 [facility] Comment on above: Performed By: #### B RISK ADVISOR, CRP, CMP ####[facility] Sxbpiqaygo[address] [place], [place] [address]Dr. Shahbaz Rogel EGFR-AF GUAMANIAN 55 mL/min/1.73m2 Critically low >=60 [facility] Comment on above: Performed By: #### B RISK ADVISOR, CRP, CMP ####[facility] Mswxmgvkhs[address] [place], [place] [address]Dr. Shahbaz Rogel EGFR-NON AF GUAMANIAN 45 mL/min/1.73m2 Critically low >=60 [facility] Comment on above: Performed By: #### B RISK ADVISOR, CRP, CMP ####[facility] Gawalvxeih[address] [place], [place] [address]Dr. Shahbaz Rogel Globulin (S) [Mass/Vol] 3.3 g/dL Normal [facility] Comment on above: Performed By: #### B RISK ADVISOR, CRP, CMP ####[facility] Ghbwrrzgpc[address] [place] [address]Dr. Shahbaz Rogel Glucose [Mass/Vol] 171 mg/dL Critically high 74-[address] [facility] Comment on above: Performed By: #### B RISK ADVISOR, CRP, CMP ####[facility] Stphnamfcf[address] [place], [place] [address]Dr. Shahbaz Rogel Potassium [Moles/Vol] 3.6 mmol/L Normal 3.5-5.1 [facility] Comment on above: Performed By: #### B RISK ADVISOR, CRP, CMP ####[facility] Nzknvxnjqe[address] [place], [place] [address]Dr. Shahbaz Rogel Protein [Mass/Vol] 6.7 g/dL Normal 6.4-8.2 [facility] Comment on above: Performed By: #### B RISK ADVISOR, CRP, CMP ####[facility] Vqhdwedhng[address] [place], [place] [address]Dr. Shahbaz Rogel Sodium [Moles/Vol] 138 mmol/L Normal 136-145 [facility] Comment on above: Performed By: #### B RISK ADVISOR, CRP, CMP ####[facility] Wcqodfdaqy[address] [place], [place] [address]Dr. Shahbaz Juan F Urea nitrogen [Mass/Vol] 21.0 mg/dL Critically high 7.0-18.0 [facility] Comment on above: Performed By: #### B RISK ADVISOR, CRP, CMP ####[facility] Fvywggibcx[address] [place], [place] [address]Dr. Shahbaz Juan F Urea nitrogen/Creatinine [Mass ratio] 17.1 mg/mg Normal [facility] Comment on above: Performed By: #### B RISK ADVISOR, CRP, CMP ####[facility] Vdtmzlttvm[address] [place], [place] [address]Dr. Shahbaz Juan F XR CHEST 2 Von 07-06-2022 XR CHEST 2 V Normal [facility] BNPon 07-05-2022 Natriuretic peptide B (Bld) [Mass/Vol] 83.0 pg/mL Normal <=900.0 [facility] Comment on above: Performed By: #### C RP, CMP, BNP ####[facility] Yvygobfodu268[address] [place], [place] [address]Dr. Lilajarrod Juan F CBC AUTO DIFFon 07-05-2022 BASO # 0.0 103/ul Normal 0.0-0.1 [facility] Comment on above: Performed By: #### C BC ####[facility] Ojidusfjws[address] [place], [place] [address]Dr. Shahbaz Rogel Basophils/100 WBC (Bld) 0.4 % Normal 0.2-2.0 [facility] Comment on above: Performed By: #### C BC ####[facility] Lqkzasjmig[address] [place], [place] [address]Dr. Shahbaz Rogel EO # 0.1 103/ul Normal 0.0-0.7 [facility] Comment on above: Performed By: #### C BC ####[facility] Ufkdbczryb[address] [place], [place] [address]Dr. Shahbaz Rogel Eosinophils/100 WBC (Bld) 2.9 % Normal 0.9-7.0 [facility] Comment on above: Performed By: #### C BC ####[facility] Iehwkebcwn240[address] [place], [place] [address]Dr. Shahbaz Rogel Erythrocyte distribution width (RBC) [Ratio] 13.4 % Normal 11.0-15.0 [facility] Comment on above: Performed By: #### C BC ####[facility] Dqedmjuxmv[address] [place], [place] [address]Dr. Shahbaz Rogel Hematocrit (Bld) [Volume fraction] 41.7 % Normal 36.0-48.0 [facility] Comment on above: Performed By: #### C BC ####[facility] Oitrsizzzv[address] [place], [place] [address]Dr. Shahbaz Rogel Hemoglobin (Bld) [Mass/Vol] 12.9 g/dL Normal 12.0-16.0 [facility] Comment on above: Performed By: #### C BC ####[facility] Hreykwuoqx[address] [place], [place] [address]Dr. Shahbaz Rogel IG # 0.00 10e3/ul Normal 0.00-0.03 [facility] Comment on above: Performed By: #### C BC ####[facility] Tweuvootok[address] [place], [place] [address]Dr. Shahbaz Rogel IG % 0.0 % Normal 0.0-0.5 [facility] Comment on above: Performed By: #### C BC ####[facility] Wowllkgpzl[address] [place], [place] [address]Dr. Shahbaz Rogel LYMPH # 1.5 103/ul Normal 1.2-3.8 [facility] Comment on above: Performed By: #### C BC ####[facility] Ywuujjvqqs[address] [place] [address]Dr. Shahbaz Rogel Lymphocytes/100 WBC (Bld) 32.9 % Normal 20.5-60.0 [facility] Comment on above: Performed By: #### C BC ####[facility] F[address]beisexet[address] [place] [address]DrChen Rogel MANUAL DIFF REQ NO Normal [facility] Comment on above: Performed By: #### C BC ####[facility] Ggkpjlejak[address] [place] [address]Dr. Shahbaz Rogel MCH (RBC) [Entitic mass] 28.0 pg Normal 26.7-34.0 [facility] Comment on above: Performed By: #### C BC ####[facility] Vylkdursyp[address] [place], [place] [address]Dr. Shahbaz Rogel MCHC (RBC) [Mass/Vol] 30.9 g/dL Normal 29.9-35.2 [facility] Comment on above: Performed By: #### C BC ####[facility] [address]flfaeaov[address] [place], [place] [address]DrChen Rogel MCV (RBC) [Entitic vol] 90.5 fL Normal 81.0-99.0 [facility] Comment on above: Performed By: #### C BC ####[facility] Dxhtynpbcm[address] [place], [place] [address]Dr. Shahbaz Rogel MONO # 0.4 103/ul Normal 0.3-0.8 [facility] Comment on above: Performed By: #### C BC ####[facility] Hmsbtznkzr[address] [place], [place] [address]Dr. Shahbaz Rogel Monocytes/100 WBC (Bld) 8.0 % Normal 1.7-12.0 [facility] Comment on above: Performed By: #### C BC ####[facility] Xarqyuvime[address] [place], [place] [address]DrChen Rogel NEUT # 2.5 103/ul Normal 1.4-6.5 [facility] Comment on above: Performed By: #### C BC ####[facility] [address]zurixqwtb[address] [place] [address]Dr. Shahbaz Rogel Neutrophils/100 WBC (Bld) 55.8 % Normal 43.0-75.0 [facility] Comment on above: Performed By: #### C BC ####[facility] Agaktbtkzk[address] [place] [address]Dr. Shahbaz Rogel Platelet mean volume (Bld) [Entitic vol] 9.7 fL Normal 9.5-13.5 [facility] Comment on above: Performed By: #### C BC ####[facility] Gfegzvigsy[address] [place], [place] [address]Dr. Shahbaz Rogel PLT 158 103/ul Normal 150-450 [facility] Comment on above: Performed By: #### C BC ####[facility] Vlewigavgf[address] [place], [place] [address]Dr. Shahbaz Rogel RBC 4.61 106/ul Normal 4.20-5.40 [facility] Comment on above: Performed By: #### C BC ####[facility] Gccpwbrcir[address] [place], [place] [address]Dr. Shahbaz Rogel WBC 4.5 103/ul Normal 4.0-11.0 [facility] Comment on above: Performed By: #### C BC ####[facility] Tbuowogsqi7[address] [place], [place] [address]Dr. Shahbaz Rogel CRPon 07-05-2022 CRP [Mass/Vol] mg/L Normal <=1.0 [facility] Comment on above: Performed By: #### C RP, CMP, BNP ####[facility] [address]mwkhk[address] [place] [address]Dr. Shahbaz Rogel ECHO LIMITED STUDYon ECHO LIMITED STUDY Normal [facility] PROF 14(COMP METB)on Albumin [Mass/Vol] 3.2 g/dL Critically low 3.4-5.0 [facility] Comment on above: Performed By: #### C RP, CMP, BNP ####[facility] Ecygmroyta[address] [place] [address]Dr. Shahbaz Rogel Albumin/Globulin [Mass ratio] 1.0 {ratio} Normal [facility] Comment on above: Performed By: #### C RP, CMP, BNP ####[facility] Meuvmxkykf47[address] [place] [address]Dr. Shahbaz Rogel ALP [Catalytic activity/Vol] 88 U/L Normal 46-116 [facility] Comment on above: Performed By: #### C RP, CMP, BNP ####[facility] Utwitzprkl[address] [place], [place] [address]Dr. Shahbaz Rogel ALT [Catalytic activity/Vol] 17 U/L Normal 14-59 [facility] Comment on above: Performed By: #### C RP, CMP, BNP ####[facility] Mxhtoppajf[address] [place], [place] [address]Dr. Shahbaz Rogel Anion gap [Moles/Vol] 12.5 mmol/L Normal [facility] Comment on above: Performed By: #### C RP, CMP, BNP ####[facility] Ubucqcfnkx[address] [place], [place] [address]Dr. Shahbaz Rogel AST [Catalytic activity/Vol] 18 U/L Normal 15-37 [facility] Comment on above: Performed By: #### C RP, CMP, BNP ####[facility] Blhrdjnzvy217[address] [place], [place] [address]Dr. Shahbaz Rogel Bilirubin [Mass/Vol] 0.3 mg/dL Normal 0.2-1.0 [facility] Comment on above: Performed By: #### C RP, CMP, BNP ####[facility] Qjpuliliqz18[address] [place], [place] [address]Dr. Shahbaz Rogel Calcium [Mass/Vol] 8.9 mg/dL Normal 8.5-10.1 [facility] Comment on above: Performed By: #### C RP, CMP, BNP ####[facility] Gyyktqomzm27[address] [place], [place] [address]Dr. Shahbaz Rogel Chloride [Moles/Vol] 103 mmol/L Normal 98-107 [facility] Comment on above: Performed By: #### C RP, CMP, BNP ####[facility] [address]xvtrrbzvi[address] [place] [address]Dr. Shahbaz Rogel CO2 [Moles/Vol] 28.1 mmol/L Normal 21.0-32.0 [facility] Comment on above: Performed By: #### C RP, CMP, BNP ####[facility] Bongekphkc[address] [place] [address]Dr. Shahbaz Rogel Creatinine [Mass/Vol] 1.24 mg/dL Critically high 0.55-1.02 [facility] Comment on above: Performed By: #### C RP, CMP, BNP ####[facility] Jtxissdnrr[address] [place], [place] [address]Dr. Shahbaz Rogel EGFR-AF GUAMANIAN 54 mL/min/1.73m2 Critically low >=60 [facility] Comment on above: Performed By: #### C RP, CMP, BNP ####[facility] Kqehusavti[address] [place], [place] [address]Dr. Shahbaz Rogel EGFR-NON AF GUAMANIAN 45 mL/min/1.73m2 Critically low >=60 [facility] Comment on above: Performed By: #### C RP, CMP, BNP ####[facility] Ptntcmfyyh[address] [place], [place] [address]Dr. Shahbaz Rogel Globulin (S) [Mass/Vol] 3.1 g/dL Normal [facility] Comment on above: Performed By: #### C RP, CMP, BNP ####[facility] [address]oc[address] [place] [address]Dr. Shahbaz Rogel Glucose [Mass/Vol] 115 mg/dL Critically high 74-[address] [facility] Comment on above: Performed By: #### C RP, CMP, BNP ####[facility] Ihveaqnerl[address] [place], [place] [address]Dr. Shahbaz Rogel Potassium [Moles/Vol] 3.6 mmol/L Normal 3.5-5.1 [facility] Comment on above: Performed By: #### C RP, CMP, BNP ####[facility] Ucejkht[address] [place], [place] [address]Dr. Shahbaz Rogel Protein [Mass/Vol] 6.3 g/dL Critically low 6.4-8.2 [facility] Comment on above: Performed By: #### C RP, CMP, BNP ####[facility] [address]om[address] [place] [address]Dr. Shahbaz Rogel Sodium [Moles/Vol] 140 mmol/L Normal 136-145 [facility] [place] [facility] Comment on above: Performed By: #### C RP, CMP, BNP ####[facility] Xqxpvorfrz[address] [place] [address]Dr. Shahbaz Rogel Urea nitrogen [Mass/Vol] 18.0 mg/dL Normal 7.0-18.0 [facility] Comment on above: Performed By: #### C RP, CMP, BNP ####[facility] [address]oksphxre[address] [place] [address]Dr. Shahbaz Rogel Urea nitrogen/Creatinine [Mass ratio] 14.5 mg/mg Normal [facility] Comment on above: Performed By: #### C RP, CMP, BNP ####[facility] W[address]eqrmyu[address] [place] [address]Dr. Shahbaz Rogel T3, TOTAL (TRIIODOTHYRONINE) on 07-05-2022 T3, TOTAL 95 ng/dL Normal 71-180 [facility] Comment on above: Performed By: #### T 3TOTAL ####[facility] Gvmylzohhz[address] [place] [address]Dr. Shahbaz Rogel CARDIAC ROSALINA 3-6on 2 CK [Catalytic activity/Vol] 78 U/L Normal 26-192 [facility] Comment on above: Performed By: #### C MREP ####[facility] Flrlmzmmle[address] [place] [address]Dr. Shahbaz Rogel CK.MB [Mass/Vol] 1.44 ng/mL Normal <=3.60 [facility] Comment on above: Performed By: #### C MREP ####[facility] Pzlmsaanco[address] [place] [address]Dr. Shahbaz Rogel HSTROP 9.0 pg/mL Normal 4.0-51.3 [facility] Comment on above: Result Comment: CUT- OFF POINTS HAVE BEEN ESTABLISHED BASED ON THE FOURTH UNIVERSAL DEFINITIONS OF MYOCARDIALINFARCTION. THE UPPER REFERENCE LIMIT (URL) OF TROPONIN, DEFINED THE 99TH PERCENTILE OFcTnI DISTRIBUTION IN A REFERENCE POPULATION, HAS BEEN CONFIRMED THE DECISION THRESHOLDFOR OR DIAGNOSIS. Performed By: #### C MREP ####[facility] Ox[address]jbeczl[address] [place] [id number]. Shahbaz Rogel CK [Catalytic activity/Vol] 88 U/L Normal 26-192 [facility] Comment on above: Performed By: #### C MREP ####[facility] Zfhavejmyz3404 [place], [place] [address]Mt. Shahbaz Rogel CK.MB [Mass/Vol] 1.38 ng/mL Normal <=3.60 [facility] Comment on above: Performed By: #### C MREP ####[facility] Apwaahdhxn37[address] [place] [id number]. Shahbaz Rogel HSTROP 7.0 pg/mL Normal 4.0-51.3 [facility] Comment on above: Result Comment: CUT- OFF POINTS HAVE BEEN ESTABLISHED BASED ON THE FOURTH UNIVERSAL DEFINITIONS OF MYOCARDIALINFARCTION. THE UPPER REFERENCE LIMIT (URL) OF TROPONIN, DEFINED THE 99TH PERCENTILE OFcTnI DISTRIBUTION IN A REFERENCE POPULATION, HAS BEEN CONFIRMED THE DECISION THRESHOLDFOR OR DIAGNOSIS. Performed By: #### C MREP ####[facility] Zezrwgdkbs90[address] [place] [id number]. Shahbaz Rogel CARDIAC ROSALINA ADMITon 022 CK [Catalytic activity/Vol] 87 U/L Normal 26-192 [facility] Comment on above: Performed By: #### C JACKSON CMADM ####[facility] Vlmrwxikzx4[address] [place] [id number]. Shahbaz Rogel CK.MB [Mass/Vol] 1.80 ng/mL Normal <=3.60 [facility] Comment on above: Performed By: #### C JACKSON CMADM ####[facility] Qdqqzrsfln28[address] [place] [id number]. Shahbaz Rogel HSTROP 7.6 pg/mL Normal 4.0-51.3 [facility] Comment on above: Result Comment: CUT- OFF POINTS HAVE BEEN ESTABLISHED BASED ON THE FOURTH UNIVERSAL DEFINITIONS OF MYOCARDIALINFARCTION. THE UPPER REFERENCE LIMIT (URL) OF TROPONIN, DEFINED THE 99TH PERCENTILE OFcTnI DISTRIBUTION IN A REFERENCE POPULATION, HAS BEEN CONFIRMED THE DECISION THRESHOLDFOR OR DIAGNOSIS. Performed By: #### C MP, CMADM ####[facility] Nwqaakfwbg[address] [place] [address]Dr. Shahbaz Rogel LEN 67 ng/mL Normal 9-82 [facility] Comment on above: Performed By: #### C MP, CMADM ####[facility] Nowdtfkdzw[address] [place], [place] [address]Dr. Shahbaz Rogel CBC AUTO DIFFon 07-04-2022 BASO # 0.0 103/ul Normal 0.0-0.1 [facility] Comment on above: Performed By: #### C BC ####[facility] [address]ysevfzj[address] [place], [place] [address]Dr. Shahbaz Rogel Basophils/100 WBC (Bld) 0.7 % Normal 0.2-2.0 [facility] Comment on above: Performed By: #### C BC ####[facility] Nwwpgophdo[address] [place], [place] [address]Dr. Shahbaz Rogel EO # 0.1 103/ul Normal 0.0-0.7 [facility] Comment on above: Performed By: #### C BC ####[facility] Jeunvuqoxe[address] [place], [place] [address]Dr. Shahbaz Rogel Eosinophils/100 WBC (Bld) 3.4 % Normal 0.9-7.0 [facility] Comment on above: Performed By: #### C BC ####[facility] Mnwmfexijn[address] [place], [place] [address]Dr. Shahbaz Rogel Erythrocyte distribution width (RBC) [Ratio] 13.3 % Normal 11.0-15.0 [facility] Comment on above: Performed By: #### C BC ####[facility] Mzosafebjl[address] [place], [place] [address]Dr. Shahbaz Rogel Hematocrit (Bld) [Volume fraction] 42.1 % Normal 36.0-48.0 [facility] Comment on above: Performed By: #### C BC ####[facility] Hswqgmhclm49[address] [place] [address]DrChen Rogel Hemoglobin (Bld) [Mass/Vol] 13.3 g/dL Normal 12.0-16.0 [facility] Comment on above: Performed By: #### C BC ####[facility] Crzcygkaud9[address] [place] [address]DrChen Rogel IG # 0.01 10e3/ul Normal 0.00-0.03 [facility] Comment on above: Performed By: #### C BC ####[facility] Mivkviniiu[address] [place], [place] [address]DrChen Rogel IG % 0.3 % Normal 0.0-0.5 [facility] Comment on above: Performed By: #### C BC ####[facility] Uoyweeohmm[address] [place], [place] [address]DrChen Rogel LYMPH # 1.0 103/ul Critically low 1.2-3.8 [facility] Comment on above: Performed By: #### C BC ####[facility] Xkyweotzof[address] [place], [place] [address]DrChen Rogel Lymphocytes/100 WBC (Bld) 35.6 % Normal 20.5-60.0 [facility] Comment on above: Performed By: #### C BC ####[facility] Ukxmxinfsu[address] [place], [place] [address]DrChen Rogel MANUAL DIFF REQ NO Normal [facility] Comment on above: Performed By: #### C BC ####[facility] Qzdmfxtubi6[address] [place] [address]DrChen Rogel MCH (RBC) [Entitic mass] 27.9 pg Normal 26.7-34.0 [facility] Comment on above: Performed By: #### C BC ####[facility] Dtxqefdfal8386 [place] [address]DrChen Rogel MCHC (RBC) [Mass/Vol] 31.6 g/dL Normal 29.9-35.2 [facility] Comment on above: Performed By: #### C BC ####[facility] Rffkjpcfjl77[address] [place] [address]DrChen Shahbaz Juan F MCV (RBC) [Entitic vol] 88.3 fL Normal 81.0-99.0 [facility] Comment on above: Performed By: #### C BC ####[facility] Vjplpwumxk94[address] [place] [address]DrChen Rogel MONO # 0.2 103/ul Critically low 0.3-0.8 [facility] Comment on above: Performed By: #### C BC ####[facility] Zfurcgsoar8086 [place] [address]DrChen Rogel Monocytes/100 WBC (Bld) 7.9 % Normal 1.7-12.0 [facility] Comment on above: Performed By: #### C BC ####[facility] Arccnjgeue[address] [place], [place] [address]DrChen Rogel NEUT # 1.5 103/ul Normal 1.4-6.5 [facility] Comment on above: Performed By: #### C BC ####[facility] Vaijtaqhid[address] [place], [place] [address]DrChen Rogel Neutrophils/100 WBC (Bld) 52.1 % Normal 43.0-75.0 [facility] Comment on above: Performed By: #### C BC ####[facility] Gexstfalgx[address] [place], [place] [address]DrChen Rogel Platelet mean volume (Bld) [Entitic vol] 9.5 fL Normal 9.5-13.5 [facility] Comment on above: Performed By: #### C BC ####[facility] Cremosaipv[address] [place], [place] [address]Dr. Shahbaz Rogel PLT 172 103/ul Normal 150-450 [facility] Comment on above: Performed By: #### C BC ####[facility] Lsttcomrjb5[address] [place] [phone] Rogel RBC 4.77 106/ul Normal 4.20-5.40 [facility] Comment on above: Performed By: #### C BC ####[facility] Dltebyelub[address] [place] [address]Dr. Shahbaz Rogel WBC 2.9 103/ul Critically low 4.0-11.0 [facility] Comment on above: Performed By: #### C BC ####[facility] Vvepqqefpj7331 [place] [phone]. Shahbaz Rogel CELL COUNT BODY FLUIDon 10-0 BASOS Normal [facility] Comment on above: Performed By: #### B FCC ####[facility] Uwlwggmetu[address] [place], [place] [address]Dr. Shahbaz Rogel Eosinophils/100 WBC (Bld) 4 % Normal [facility] Comment on above: Performed By: #### B FCC ####[facility] Ypompeppvw[address] [place], [place] [address]Dr. Shahbaz Rogel Lymphocytes/100 WBC (Bld) 12 % Normal [facility] Comment on above: Performed By: #### B FCC ####[facility] Ubcpygunjy[address] [place], [place] [address]Dr. Shahbaz Rogel Monocytes/100 WBC (Bld) 4 % Normal [facility] Comment on above: Performed By: #### B FCC ####[facility] Jferaexjlo[address] [place], [place] [address]Dr. Shahbaz Rogel RBC 67 cubic mm Normal [facility] Comment on above: Performed By: #### B FCC ####[facility] Idofnsudla[address] [place], [place] [address]Dr. Shahbaz Rogel SEGS 80 % Normal [facility] Comment on above: Performed By: #### B FCC ####[facility] Ijfgjxiwln[address] [place], [place] [address]Dr. Shahbaz Rogel WBC BODY FLUID 223 cubic mm Normal [facility] Comment on above: Performed By: #### B FCC ####[facility] Amcmyvfqsz[address] [place], [place] [address]Dr. Shahbaz Rogel CULTURE OTHERon 07-04-2022 CULTURE OTHER Culture Observations : NO GROWTH AT 48 HOURS. Normal [facility] Comment on above: Performed By: #### O THCX ####[facility] Fvucfwwigt[address] [place] [phone]. Shahbaz Rogel CYTOLOGYon 07-04-2022 SENT TO REF LAB 07/04/22 Normal [facility] Comment on above: Performed By: #### C YTO ####[facility] Cgdvcrbgdo74[address] [place] [phone]. Shahbaz Rogel Covid-19 PCR (CVDTBH)on SARS-CoV-2 (COVID-19) RNA PAVAN+probe Ql (Unsp spec) Not detected Normal NOT DETECTED [facility] Comment on above: Result Comment: When diagnostic [...] for this test is supported by the [place] of Health and Human Service's declaration that [...] be used). Performed By: #### C VDTBH ####[facility] Winoyitqkc5424 [place] [phone]. Shahbaz Rogel GRAM STAINon 07-04-2022 COMMENTS NO ORGANISMS OBSERVED Normal [facility] Comment on above: Performed By: #### G STAIN ####[facility] Zaazdyzifq4797 [place] [phone]. Shahbaz Rogel DIPHTHEROIDS Normal [facility] Comment on above: Performed By: #### G STAIN ####[facility] Rlsjzivsas[address] [place] [address]Dr. Shahbaz Rogel EPITHELIALS Normal [facility] Comment on above: Performed By: #### G STAIN ####[facility] Qbpazbhxkx9[address] [place] [address]Dr. Shahbaz Rogel FUNGAL ELEMENTS Normal [facility] Comment on above: Performed By: #### G STAIN ####[facility] Xhneiokicu8[address] [place] [address]Dr. Shahbaz Rogel GRAM NEG BACILLI Normal [facility] Comment on above: Performed By: #### G STAIN ####[facility] Aaykvyzjze9[address] [place] [address]Dr. Shahbaz Rogel GRAM NEG DIPPLOCOCCI Normal [facility] Comment on above: Performed By: #### G STAIN ####[facility] [address]vxluhdgbr[address] [place], [place] [address]Dr. Shahbaz Rogel GRAM POS BACILLI Normal [facility] Comment on above: Performed By: #### G STAIN ####[facility] Yrqfvhoqiw[address] [place], [place] [address]Dr. Shahbaz Rogel GRAM POSITIVE COCCI Normal [facility] Comment on above: Performed By: #### G STAIN ####[facility] Nclzcxtiph[address] [place], [place] [address]Dr. Shahbaz Rogel GRAM STAIN SOURCE Rt Lower Lobe Bronch ial Washing Normal [facility] Comment on above: Performed By: #### G STAIN ####[facility] Iefmtlyqtr6326 [place] [address]Dr. Shahbaz Rogel GS_DIPTH Normal [facility] Comment on above: Performed By: #### G STAIN ####[facility] Xsudnobwzt16[address] [place] [address]Dr. Shahbaz Rogel WBC RARE Normal [facility] Comment on above: Performed By: #### G STAIN ####[facility] Ojttzxkqtq[address] [place], [place] [address]Dr. Shahbaz Rogel PROF 14(COMP METB)on 022 Albumin [Mass/Vol] 3.6 g/dL Normal 3.4-5.0 [facility] Comment on above: Performed By: #### C MP, CMADM ####[facility] Wlwwzbwyic4049 [place] [phone]. Shahbaz Rogel Albumin/Globulin [Mass ratio] 1.1 {ratio} Normal [facility] Comment on above: Performed By: #### C JACKSON, CINDY ####[facility] Dwyxqfhmvr9355 [place] [phone]. Shahbaz Rogel ALP [Catalytic activity/Vol] 102 U/L Normal 46-116 [facility] Comment on above: Performed By: #### C JACKSON, CINDY ####[facility] Pnljgnisek8520 [place] [phone]. Shahbza Rogel ALT [Catalytic activity/Vol] 19 U/L Normal 14-59 [facility] Comment on above: Performed By: #### C JACKSON, CINDY ####[facility] Hpnykbzsmg24[address] [place] [phone]. Shahbaz Rogel Anion gap [Moles/Vol] 9.5 mmol/L Normal [facility] Comment on above: Performed By: #### C JACKSON, CINDY ####[facility] Dkodvnpmzy3799 [place] [phone]. Shahbaz Rogel AST [Catalytic activity/Vol] 19 U/L Normal 15-37 [facility] Comment on above: Performed By: #### C JACKSON, CINDY ####[facility] Bceixqhgio2727 [place] [phone]. Shahbaz Rogel Bilirubin [Mass/Vol] 0.3 mg/dL Normal 0.2-1.0 [facility] Comment on above: Performed By: #### C JACKSON, CINDY ####[facility] Xspkapupnf3677 [place] [phone]. Shahbaz Rogel Calcium [Mass/Vol] 8.8 mg/dL Normal 8.5-10.1 [facility] Comment on above: Performed By: #### C JACKSON, CINDY ####[facility] Idvmqqgnti9882 [place] [phone]. Shahbaz Juan F Chloride [Moles/Vol] 107 mmol/L Normal 98-107 [facility] Comment on above: Performed By: #### C JACKSON, CMADM ####[facility] Snmqpogebk1006 [place] [phone]. Shahbaz Rogel CO2 [Moles/Vol] 29.5 mmol/L Normal 21.0-32.0 [facility] Comment on above: Performed By: #### C MP, CMADM ####[facility] Xfrnlejhhx4187 [place] [address]Dr. Shahbaz Rogel Creatinine [Mass/Vol] 0.97 mg/dL Normal 0.55-1.02 [facility] Comment on above: Performed By: #### C JACKSON, CMADM ####[facility] Jgmfbkujkz8526 [place] [address]Dr. Shahbaz Juan F EGFR-AF GUAMANIAN >60 Normal >=60 [facility] Comment on above: Performed By: #### C JACKSON, CMADM ####[facility] Kaqgoeqgyn8[address] [place] [address]Dr. Shahbaz Rogel EGFR-NON AF GUAMANIAN 59 mL/min/1.73m2 Critically low >=60 [facility] Comment on above: Performed By: #### C JACKSON, CMADM ####[facility] Vnvcyazqza9082 [place] [address]Dr. Shahbaz Juan F Globulin (S) [Mass/Vol] 3.2 g/dL Normal [facility] Comment on above: Performed By: #### C JACKSON, CMADM ####[facility] Uqrrgyikns22[address] [place] [address]Dr. Shahbaz Rogel Glucose [Mass/Vol] 89 mg/dL Normal 74-106 [facility] Comment on above: Performed By: #### C MP, CMADM ####[facility] Ezojvoplyd7934 [place] [address]Dr. Shahbaz Rogel Potassium [Moles/Vol] 4.0 mmol/L Normal 3.5-5.1 [facility] Comment on above: Performed By: #### C MP, CMADM ####[facility] Cqckwlnjnh5602 [place] [address]Dr. Shahbaz Rogel Protein [Mass/Vol] 6.8 g/dL Normal 6.4-8.2 [facility] Comment on above: Performed By: #### C JACKSON, CMADM ####[facility] Hzcxfzamuj0623 [place] [address]Dr. Shahbaz Rogel Sodium [Moles/Vol] 142 mmol/L Normal 136-145 [facility] Comment on above: Performed By: #### C MP, CMADM ####[facility] Nghmujfima22[address] [place] [address]Dr. Shahbaz Rogel Urea nitrogen [Mass/Vol] 11.0 mg/dL Normal 7.0-18.0 [facility] Comment on above: Performed By: #### C JACKSON, CMADM ####[facility] Nlowwkaqmb[address] [place], [place] [address]Dr. Shahbaz Rogel Urea nitrogen/Creatinine [Mass ratio] 11.3 mg/mg Normal [facility] Comment on above: Performed By: #### C JACKSON, CMADM ####[facility] Zuqgdmaerg[address] [place], [place] [address]Dr. Shahbaz Rogel T4on 07-04-2022 T4 [Mass/Vol] 4.70 ug/dL Critically low 4.80-13.90 [facility] Comment on above: Performed By: #### T SH, T4 ####[facility] Upnsmhkvdj[address] [place], [place] [address]Dr. Shahbaz Rogel TSHon 07-04-2022 TSH 0.359 uIU/mL Normal 0.358-3.74 0 [facility] Comment on above: Performed By: #### T SH, T4 ####[facility] Cvakpwsked[address] [place], [place] [address]Dr. Shahbaz Rogel XR CHEST 1 Von 07-04-2022 XR CHEST 1 V Normal [facility] XR CHEST 1 V Normal [facility] CHLAMYDIA PNEUMONIAE IgG IgM IgAon 06-27-2022 Chlamydia pneumoniae IgA <1:16 Normal Neg:<1:16 [facility] Comment on above: Performed By: #### C HLMPNE ####[facility] Ehlecntvfo[address] [place], [place] [address]Dr. Shahbaz Rogel Chlamydia pneumoniae IgG <1:16 Normal Neg:<1:16 [facility] Comment on above: Performed By: #### C HLMPNE ####[facility] Cekicxazwl78[address] [place], [place] [address]DjChen Rogel Chlamydia pneumoniae IgM <1:10 Normal Neg:<1:10 [facility] Comment on above: Performed By: #### C HLMPNE ####[facility] Ncividxcri7424 [place], [place] [address]Ft. Shahbaz Rogel Test Information: Comment Normal [facility] Comment on above: Result Comment: This test was developed and its performance characteristics determinedby [employer]. It has not been cleared or approved by the Food and DrugAdministration. The FDA has determined that such clearance or approvalis not necessary. Results of this test are for investigationalpurposes only. The result should not be used as a diagnosticprocedure without confirmation of the diagnosis by another medicallyestablished diagnostic product or procedure. Performed By: #### C HLMPNE ####[facility] Hfljxedazo9283 [place], [place] [address]Ar. Shahbaz Rogel [facility]on 06-03 SARS-CoV-2 (COVID-19) RNA PAVAN+probe Ql (Unsp spec) Not detected Normal NOT DETECTED [facility] Comment on above: Result Comment: This test is not yet approved or cleared by the [place] FDA. When there are no FDA-approved or cleared tests available, and other criteria are met, FDA can make tests available under an emergency access mechanism called an Emergency Use Authorization (EUA). The EUA for this test is supported by the [place] of Health and Human Service's (HHS's) declaration [...] with SARS-CoV-2. Performed By: #### C VDTBH ####[facility] Agkhxakfqt[address] [place], [place] [address]Dr. Shahbaz Rogel CYCLIC CITRULLINATED PEPTIDE AB (CCP)on 06-25-2022 CCP Antibodies IgG/IgA 13 units Normal 0-19 [facility] Comment on above: Result Comment: Nega tive <20 Weak positive 20 - 39 Moderate positive 40 - 59 Strong positive >59 Performed By: #### C CPAB ####[facility] Jbkmmxdwqr[address] [place], [place] [address]Dr. Shahbaz Rogel ANTI NEUTROPHIL CYTOPLASMIC AB (ANCA) PRon 06-24-2022 Anti-MPO Antibodies <0.2 Normal 0.0-0.9 [facility] Comment on above: Result Comment: Perf ormed at: BN Performed By: #### A NCAP ####[facility] Twbsujyclo[address] [place], [place] [address]Dr. Shahbaz Rogel Anti-PR3 Antibodies 5.0 units Critically high 0.0-0.9 [facility] Comment on above: Result Comment: Perf ormed at: BN Performed By: #### A NCAP ####[facility] Lafiqptsaq[address] [place], [place] [address]Dr. Shahbaz Rogel Atypical pANCA <1:20 Normal Neg:<1:20 [facility] Comment on above: Result Comment: The atypical pANCA pattern has been observed in a significantpercentage of patients with ulcerative colitis, primary sclerosingcholangitis and autoimmune hepatitis.Performed at: CB Performed By: #### A NCAP ####[facility] [address]cduyduyhp[address] [place], [place] [address]Dr. Shahbaz Rogel Cytoplasmic (C-ANCA) <1:20 Normal Neg:<1:20 [facility] Comment on above: Result Comment: Perf ormed at: CB Performed By: #### A NCAP ####[facility] Fofynlwbcz[address] [place], [place] [address]Dr. Shahbaz Rogel Perinuclear (P-ANCA) 1:80 Critically high Neg:<1:20 [facility] Comment on above: Result Comment: The presence of positive fluorescence exhibiting P-ANCA or C-ANCApatterns alone is not specific for the diagnosis of Ada'sGranulomatosis (WG) or microscopic polyangiitis. Decisions abouttreatment should not be based solely on ANCA IFA results. TheInternational ANCA Group Consensus recommends follow up testing ofpositive sera with both OK-3 and MPO-ANCA enzyme immunoassays. Asmany as 5% serum samples are positive only by EIA.Ref. AM J Clin Pathol 1999;111:507-513.Performed at: CB Performed By: #### A NCAP ####[facility] [address]wapwpytpk[address] [place] [address]Dr. Shahbaz Rogel ANTIGLOMERULAR BASEMENT MEMB ANTOINE ABSon 06-24-2022 Anti-GBM Antibodies <0.2 Normal 0.0-0.9 [facility] Comment on above: Performed By: #### A GBM ####[facility] [address]xdftrfvvk[address] [place], [place] [address]Dr. Shahbaz Rogel SHAHANA EIA W/REFLEX 5 BIOMARKER Son 06-23-2022 SHAHANA Direct Negative Normal Negative [facility] Comment on above: Performed By: #### A NARF ####[facility] Jyohoskyup[address] [place] [address]Dr. Shahbaz Rogel ANTISCLERODERMA ABon 022 Antiscleroderma-70 Antibodies <0.2 Normal 0.0-0.9 [facility] Comment on above: Performed By: #### A NSCLER ####[facility] Tppteqguik[address] [place] [address]Dr. Shahbaz Rogel RHEUMATOID FACTORon 06-23-20 22 RA Latex Turbid. <10.0 Normal <14.0 [facility] Comment on above: Performed By: #### R F ####[facility] Eomlinjbng[address] [place], [place] [address]Dr. Shahbaz Rogel CBC AUTO DIFFon 06-22-2022 BASO # 0.0 103/ul Normal 0.0-0.1 [facility] Comment on above: Performed By: #### C BC ####[facility] Knjttejrha[address] [place] [address]Dr. Shahbaz Rogel Basophils/100 WBC (Bld) 0.5 % Normal 0.2-2.0 [facility] Comment on above: Performed By: #### C BC ####[facility] Nkoifbwtpt318[address] [place], [place] [address]Dr. Shahbaz Rogel EO # 0.1 103/ul Normal 0.0-0.7 [facility] Comment on above: Performed By: #### C BC ####[facility] Hptbtdvpvy209[address] [place], [place] [address]Dr. Shahbaz Rogel Eosinophils/100 WBC (Bld) 3.4 % Normal 0.9-7.0 [facility] Comment on above: Performed By: #### C BC ####[facility] Nggqlenuxg598[address] [place], [place] [address]Dr. Shahbaz Rogel Erythrocyte distribution width (RBC) [Ratio] 13.2 % Normal 11.0-15.0 [facility] Comment on above: Performed By: #### C BC ####[facility] Chjnsnewdk89[address] [place], [place] [address]Dr. Shahbaz Rogel Hematocrit (Bld) [Volume fraction] 45.6 % Normal 36.0-48.0 [facility] Comment on above: Performed By: #### C BC ####[facility] Pasggiwgzu849[address] [place], [place] [address]Dr. Shahbaz Rogel Hemoglobin (Bld) [Mass/Vol] 14.7 g/dL Normal 12.0-16.0 [facility] Comment on above: Performed By: #### C BC ####[facility] Ukvqtmodkt9[address] [place], [place] [address]Dr. Shahbaz Rogel IG # 0.01 10e3/ul Normal 0.00-0.03 [facility] Comment on above: Performed By: #### C BC ####[facility] Pzizjvaoea9[address] [place], [place] [address]Dr. Shahbaz Rogel IG % 0.3 % Normal 0.0-0.5 [facility] Comment on above: Performed By: #### C BC ####[facility] Jxdukmspid083152 [address] [place], [place] [address]Dr. Shahbaz Rogel LYMPH # 1.0 103/ul Critically low 1.2-3.8 [facility] Comment on above: Performed By: #### C BC ####[facility] Zcaykgqugv8324 [place] [address]Dr. Shahbaz Rogel Lymphocytes/100 WBC (Bld) 25.7 % Normal 20.5-60.0 [facility] Comment on above: Performed By: #### C BC ####[facility] Bmaxwulhcu0864 [place] [address]DrChen Rogel MANUAL DIFF REQ NO Normal [facility] Comment on above: Performed By: #### C BC ####[facility] Zduefodgsc9598 [place] [address]Dr. Shahbaz Rogel MCH (RBC) [Entitic mass] 28.1 pg Normal 26.7-34.0 [facility] Comment on above: Performed By: #### C BC ####[facility] Haqbgipbvy8565[address] [place], [place] [address]Dr. Shahbaz Rogel MCHC (RBC) [Mass/Vol] 32.2 g/dL Normal 29.9-35.2 [facility] Comment on above: Performed By: #### C BC ####[facility] Flyhipfoci945[address] [place], [place] [address]DrChen Rogel MCV (RBC) [Entitic vol] 87.2 fL Normal 81.0-99.0 [facility] Comment on above: Performed By: #### C BC ####[facility] Giidwpkglo512052 [address] [place], [place] [address]DrChen Rogel MONO # 0.2 103/ul Critically low 0.3-0.8 [facility] Comment on above: Performed By: #### C BC ####[facility] Aniycnpfwx0960[address] [place], [place] [address]DrChen Rogel Monocytes/100 WBC (Bld) 6.0 % Normal 1.7-12.0 [facility] Comment on above: Performed By: #### C BC ####[facility] Pfrrpggcdn9900[address] [place], [place] [address]DrChen Rogel NEUT # 2.5 103/ul Normal 1.4-6.5 [facility] Comment on above: Performed By: #### C BC ####[facility] Qtwbwcafkg8756 [place] [address]Dr. Shahbaz Rogel Neutrophils/100 WBC (Bld) 64.1 % Normal 43.0-75.0 [facility] Comment on above: Performed By: #### C BC ####[facility] Ghwurklsjl1751 [place] [address]Dr. Shahbaz Rogel Platelet mean volume (Bld) [Entitic vol] 9.4 fL Critically low 9.5-13.5 [facility] Comment on above: Performed By: #### C BC ####[facility] Vkkfqgkirc434[address] [place], [place] [address]Dr. Shahbaz Rogel PLT 212 103/ul Normal 150-450 [facility] Comment on above: Performed By: #### C BC ####[facility] Jqnhrrasah405[address] [place], [place] [address]Dr. Shahbaz Rogel RBC 5.23 106/ul Normal 4.20-5.40 [facility] Comment on above: Performed By: #### C BC ####[facility] Idawaxujui267[address] [place], [place] [address]Dr. Shahbaz Rogel WBC 3.9 103/ul Critically low 4.0-11.0 [facility] Comment on above: Performed By: #### C BC ####[facility] Odfnlilvam43[address] [place], [place] [address]Dr. Shahbaz Rogel PROF 14(COMP METB)on 022 Albumin [Mass/Vol] 4.1 g/dL Normal 3.4-5.0 [facility] Comment on above: Performed By: #### C MP ####[facility] Qejjhokivl06[address] [place], [place] [address]Dr. Shahbaz Rogel Albumin/Globulin [Mass ratio] 1.1 {ratio} Normal [facility] Comment on above: Performed By: #### C MP ####[facility] Arcawzraan6425 [place] [address]Dr. Shahbaz Rogel ALP [Catalytic activity/Vol] 133 U/L Critically high 46-116 [facility] Comment on above: Performed By: #### C MP ####[facility] Crirqjdfao5632 [place] [address]Dr. Shahbaz Rogel ALT [Catalytic activity/Vol] 29 U/L Normal 14-59 [facility] Comment on above: Performed By: #### C MP ####[facility] Uhadwbxaos3076 [place] [id number]. Shahbaz Rogel Anion gap [Moles/Vol] 10.9 mmol/L Normal [facility] Comment on above: Performed By: #### C MP ####[facility] Auzptgfrvc0351 [place] [address]Dr. Shahbaz Rogel AST [Catalytic activity/Vol] 23 U/L Normal 15-37 [facility] Comment on above: Performed By: #### C MP ####[facility] Gvajsielam7435[address] [place], [place] [address]Dr. Shahbaz Juan F Bilirubin [Mass/Vol] 0.3 mg/dL Normal 0.2-1.0 [facility] Comment on above: Performed By: #### C MP ####[facility] Ebuothnkax[address] [place] [address]Dr. Shahbaz Juan F Calcium [Mass/Vol] 9.1 mg/dL Normal 8.5-10.1 [facility] Comment on above: Performed By: #### C MP ####[facility] Kgjiomcbgk1305 [place] [address]Dr. Shahbaz Rogel Chloride [Moles/Vol] 103 mmol/L Normal 98-107 [facility] Comment on above: Performed By: #### C MP ####[facility] Ayzjtgghwl5083 [place] [id number]. Shahbaz Rogel CO2 [Moles/Vol] 30.8 mmol/L Normal 21.0-32.0 [facility] Comment on above: Performed By: #### C MP ####[facility] Kfvgqkonyz1076 [place] [id number]. Shahbaz Juan F Creatinine [Mass/Vol] 1.02 mg/dL Normal 0.55-1.02 [facility] Comment on above: Performed By: #### C MP ####[facility] Ojidtibebr2816 [place] [address]Dr. Shahbaz Rogel EGFR-AF GUAMANIAN >60 Normal >=60 [facility] Comment on above: Performed By: #### C MP ####[facility] Agfkypjrtz4942 [place] [address]Dr. Shahbaz Rogel EGFR-NON AF GUAMANIAN 56 mL/min/1.73m2 Critically low >=60 [facility] Comment on above: Performed By: #### C MP ####[facility] Mpjkvxgtba5919 [place] [address]Dr. Shahbaz Rogel Globulin (S) [Mass/Vol] 3.7 g/dL Normal [facility] Comment on above: Performed By: #### C MP ####[facility] Xzdaqnlgog487[address] [place], [place] [address]Dr. Shahbaz Juan F Glucose [Mass/Vol] 80 mg/dL Normal 74-106 [facility] Comment on above: Performed By: #### C MP ####[facility] Rmwozpkwqi2877 [place] [address]Dr. Shahbaz Juan F Potassium [Moles/Vol] 3.7 mmol/L Normal 3.5-5.1 [facility] Comment on above: Performed By: #### C MP ####[facility] Crpqvqnlwz6825[address] [place], [place] [address]Dr. Shahbaz Juan F Protein [Mass/Vol] 7.8 g/dL Normal 6.4-8.2 [facility] Comment on above: Performed By: #### C MP ####[facility] Dnlqcezbmi8298 [place] [address]Dr. Shahbaz Rogel Sodium [Moles/Vol] 141 mmol/L Normal 136-145 [facility] Comment on above: Performed By: #### C MP ####[facility] Zjbewnwkni0905 [place] [address]Dr. Shahbaz Rogel Urea nitrogen [Mass/Vol] 10.0 mg/dL Normal 7.0-18.0 [facility] Comment on above: Performed By: #### C MP ####[facility] Rutbhcuton5988 [place] [id number]. Shahbaz Rogel Urea nitrogen/Creatinine [Mass ratio] 9.8 mg/mg Normal [facility] Comment on above: Performed By: #### C MP ####[facility] Apoxrkeksd4994 [place] [id number]. Shahbaz Rogel SED RATE WESTERGRENon 2021 SED RATE 17 mm/hr Normal <=30 [facility] Comment on above: Performed By: #### S EDR ####[facility] Aequfyiunf944[address] [place], [place] [address]Dr. Shahbaz Rogel CT CHEST HI RESOLUTIONon CT CHEST HI RESOLUTION Normal [facility] XR ANKLE RT MIN 3 VIEWSon XR ANKLE RT MIN 3 VIEWS Normal [facility] CT CHEST WO CONon 03-03-2022 CT CHEST WO CON Normal [facility] CT CSPINE WO CONon CT CSPINE WO CON Normal [facility] XR CHEST 2 Von 03-03-2022 XR CHEST 2 V Normal [facility] XR STERNUM MIN 2 VIEWSon XR STERNUM MIN 2 VIEWS Normal [facility] CT HEAD WO CONon 03-02-2022 CT HEAD WO CON Normal [facility] CBC AUTO DIFFon 01-21-2022 BASO # 0.0 103/ul Normal 0.0-0.1 [facility] Comment on above: Performed By: #### C BC ####[facility] Rqylnfmuhc4287 [place] [address]Dr. Shahbaz Rogel Basophils/100 WBC (Bld) 0.0 % Critically low 0.2-2.0 [facility] Comment on above: Performed By: #### C BC ####[facility] Cqfbbshguh8837 [place] [address]Dr. Shahbaz Rogel EO # 0.0 103/ul Normal 0.0-0.7 [facility] Comment on above: Performed By: #### C BC ####[facility] Zxzmmsstfz7241 [place] [address]Dr. Shahbaz Rogel Eosinophils/100 WBC (Bld) 0.0 % Critically low 0.9-7.0 [facility] Comment on above: Performed By: #### C BC ####[facility] Tsryxbuvwa685[address] [place], [place] [address]Dr. Shahbaz Rogel Erythrocyte distribution width (RBC) [Ratio] 14.2 % Normal 11.0-15.0 [facility] Comment on above: Performed By: #### C BC ####[facility] Itkzsygllu429[address] [place], [place] [address]Dr. Shahbaz Rogel Hematocrit (Bld) [Volume fraction] 38.9 % Normal 36.0-48.0 [facility] Comment on above: Performed By: #### C BC ####[facility] Mmaglkjxfy007[address] [place], [place] [address]Dr. Shahbaz Rogel Hemoglobin (Bld) [Mass/Vol] 11.8 g/dL Critically low 12.0-16.0 [facility] Comment on above: Performed By: #### C BC ####[facility] Joalvvspem492[address] [place], [place] [address]Dr. Shahbaz Rogel IG # 0.03 10e3/ul Normal 0.00-0.03 [facility] Comment on above: Performed By: #### C BC ####[facility] Fyuittinrp550[address] [place], [place] [address]Dr. Shahbaz Rogel IG % 0.4 % Normal 0.0-0.5 [facility] Comment on above: Performed By: #### C BC ####[facility] Wskehbctea780[address] [place], [place] [address]Dr. Shahbaz Rogel LYMPH # 0.8 103/ul Critically low 1.2-3.8 [facility] Comment on above: Performed By: #### C BC ####[facility] Wkqsootvbf65[address] [place], [place] [address]Dr. Shahbaz Rogel Lymphocytes/100 WBC (Bld) 10.3 % Critically low 20.5-60.0 [facility] Comment on above: Performed By: #### C BC ####[facility] Wvqfqyzvou2557 [place] [id number]. Shahbaz Rogel MANUAL DIFF REQ NO Normal [facility] Comment on above: Performed By: #### C BC ####[facility] Mgvngywzhv6377 [place] [id number]. Shahbaz Rogel MCH (RBC) [Entitic mass] 27.1 pg Normal 26.7-34.0 [facility] Comment on above: Performed By: #### C BC ####[facility] Tgqwkivsci8995 [place] [phone]. Shahbaz Rogel MCHC (RBC) [Mass/Vol] 30.3 g/dL Normal 29.9-35.2 [facility] Comment on above: Performed By: #### C BC ####[facility] Nwqzawnaoh8803 [place] [address]Dr. Shahbaz Rogel MCV (RBC) [Entitic vol] 89.2 fL Normal 81.0-99.0 [facility] Comment on above: Performed By: #### C BC ####[facility] Gwnvapwmva5361 [place] [id number]. Shahbaz Juan F MONO # 0.4 103/ul Normal 0.3-0.8 [facility] Comment on above: Performed By: #### C BC ####[facility] Abyfgjstoz1213 [place] [phone]. Shahbaz Juan F Monocytes/100 WBC (Bld) 4.7 % Normal 1.7-12.0 [facility] Comment on above: Performed By: #### C BC ####[facility] Syoqrykyqj9465 [place] [id number]. Shahbaz Rogel NEUT # 6.6 103/ul Critically high 1.4-6.5 [facility] Comment on above: Performed By: #### C BC ####[facility] Okbscjtgvp9856 [place] [phone]. Lilajarrod Rogel Neutrophils/100 WBC (Bld) 84.6 % Critically high 43.0-75.0 [facility] Comment on above: Performed By: #### C BC ####[facility] Oawihzgffc3706 [place] [address]Dr. Shahbaz Rogel Platelet mean volume (Bld) [Entitic vol] 10.0 fL Normal 9.5-13.5 [facility] Comment on above: Performed By: #### C BC ####[facility] Pzlyjrkoln5047 [place] [address]Dr. Shahbaz Rogel PLT 165 103/ul Normal 150-450 [facility] Comment on above: Performed By: #### C BC ####[facility] Hygpxnsftj958[address] [place], [place] [address]Dr. Shahbaz Rogel RBC 4.36 106/ul Normal 4.20-5.40 [facility] Comment on above: Performed By: #### C BC ####[facility] Lqtmhzivkg8660 [place] [address]Dr. Shahbaz Rogel WBC 7.8 103/ul Normal 4.0-11.0 [facility] Comment on above: Performed By: #### C BC ####[facility] Doxeytlvnx569[address] [place], [place] [address]Dr. Shahbaz Rogel ER URINE PROFILEon 2 Bilirubin Ql (U) Negative Normal NEGATIVE [facility] Comment on above: Performed By: #### E RUR ####[facility] Vlaqpxfgsd950[address] [place], [place] [address]Dr. Shahbaz Rogel Clarity (U) CLEAR Normal CLEAR [facility] Comment on above: Performed By: #### E RUR ####[facility] Fbxsvyefsy0028[address] [place], [place] [address]Dr. Shahbaz Rogel Color (U) LT. YELLOW Normal YELLOW [facility] Comment on above: Performed By: #### E RUR ####[facility] Jlvyakhisv045[address] [place], [place] [address]Dr. Shahbaz Rogel ERUAHD A micrscopic examina tion will be performed if indicated. Normal [facility] Comment on above: Performed By: #### E RUR ####[facility] Uyknvwbjgs578[address] [place], [place] [address]Dr. Shahbaz Rogel Glucose Ql (U) Negative Normal NEGATIVE [facility] Comment on above: Performed By: #### E RUR ####[facility] Xxbvdwkuvi727[address] [place], [place] [address]Dr. Shahbaz Rogel Hemoglobin Ql (U) Negative Normal NEGATIVE [facility] Comment on above: Performed By: #### E RUR ####[facility] Nkmpzwxqls601[address] [place], [place] [address]Dr. Shahbaz Rogel Ketones Ql (U) Negative Normal NEGATIVE [facility] Comment on above: Performed By: #### E RUR ####[facility] Yttbpfjrbd722[address] [place], [place] [address]Dr. Shahbaz Rogel LEUKOCYTES Negative Normal NEGATIVE [facility] Comment on above: Performed By: #### E RUR ####[facility] Mswvjkfrof82[address] [place], [place] [address]Dr. Shahbaz Rogel Nitrite Ql (U) Negative Normal NEGATIVE [facility] Comment on above: Performed By: #### E RUR ####[facility] Rliwybkkhz749[address] [place], [place] [address]Dr. Shahbaz Rogel pH (U) 6.0 [pH] Normal 5-9 [facility] Comment on above: Performed By: #### E RUR ####[facility] Ptmlwudnxo664[address] [place], [place] [address]Dr. Shahbaz Rogel SPEC GRAVITY 1.020 Normal 1.005-<=1. 025 [facility] Comment on above: Performed By: #### E RUR ####[facility] Rcokezdxkj704[address] [place], [place] [address]Dr. Shahbaz Rogel UA PROTEIN Negative Normal NEGATIVE/ TRACE [facility] Comment on above: Performed By: #### E RUR ####[facility] Lhkigugaeo539[address] [place], [place] [address]Dr. Lilajarrod Rogel UR MICRO IND NOT INDICATED Normal [facility] Comment on above: Performed By: #### E RUR ####[facility] Exzwyfwogw532[address] [place], [place] [address]Dr. Lilajarrod Rogel Urobilinogen Qn (U) 0.2 {Melida'U}/dL Normal 0.2 - 1. 0 [facility] Comment on above: Performed By: #### E RUR ####[facility] Ctlwuandem8339 [place] [address]Dr. Shahbaz Rogel POINT OF CARE GLUCOSEon 01-01 Glucose [Mass/Vol] 151 mg/dL Critically high 74-[address] [facility] Comment on above: Performed By: #### P OCGLUC ####[facility] Jvaodsbrhu8256 [place] [address]Dr. Shahbaz Rogel Glucose [Mass/Vol] 248 mg/dL Critically high 74-[address] [facility] Comment on above: Performed By: #### P OCGLUC ####[facility] Eppdlwcgvw5673 [place] [address]Dr. Shahbaz Rogel PROF 14(COMP METB)on 022 Albumin [Mass/Vol] 2.8 g/dL Critically low 3.4-5.0 [facility] Comment on above: Performed By: #### C MP ####[facility] Dsbbbdnjtw3744 [place] [address]Dr. Shahbaz Rogel Albumin/Globulin [Mass ratio] 0.9 {ratio} Normal [facility] Comment on above: Performed By: #### C MP ####[facility] Hznzbxclor9782 [place] [address]Dr. Shahbaz Rogel ALP [Catalytic activity/Vol] 90 U/L Normal 46-116 [facility] Comment on above: Performed By: #### C MP ####[facility] Thvjpbywkt7021 [place] [address]Dr. Shahbaz Rogel ALT [Catalytic activity/Vol] 20 U/L Normal 14-59 [facility] Comment on above: Performed By: #### C MP ####[facility] Fmpodnuhvo7747 [place] [address]Dr. Shahbaz Rogel Anion gap [Moles/Vol] 8.9 mmol/L Normal [facility] Comment on above: Performed By: #### C MP ####[facility] Qgwkhtoyeq7960[address] [place], [place] [address]Dr. Shahbaz Rogel AST [Catalytic activity/Vol] 14 U/L Critically low 15-37 [facility] Comment on above: Performed By: #### C MP ####[facility] Dnquxmlvez664[address] [place], [place] [address]Dr. Shahbaz Rogel Bilirubin [Mass/Vol] 0.1 mg/dL Critically low 0.2-1.3 [facility] Comment on above: Performed By: #### C MP ####[facility] Rynurpyeov512[address] [place], [place] [address]Dr. Shahbaz Rogel Calcium [Mass/Vol] 8.2 mg/dL Critically low 8.5-10.1 [facility] Comment on above: Performed By: #### C MP ####[facility] Uurxycbzvh0533[address] [place], [place] [address]Dr. Lilajarrod Juan F Chloride [Moles/Vol] 110 mmol/L Critically high 98-107 [facility] Comment on above: Performed By: #### C MP ####[facility] Dfhxbqaqta845[address] [place], [place] [address]Dr. Shahbaz Juan F CO2 [Moles/Vol] 28.0 mmol/L Normal 22.0-30.0 [facility] Comment on above: Performed By: #### C MP ####[facility] Fgrwchjfql812[address] [place], [place] [address]Dr. Shahbaz Juan F Creatinine [Mass/Vol] 0.78 mg/dL Normal 0.52-1.04 [facility] Comment on above: Performed By: #### C MP ####[facility] Tdutyczbba478352 [address] [place], [place] [address]Dr. Lilajarrod Juan F EGFR-AF GUAMANIAN >60 Normal >=60 [facility] Comment on above: Performed By: #### C MP ####[facility] Hpzsjfmbuc599[address] [place], [place] [address]Dr. Shahbaz Rogel EGFR-NON AF GUAMANIAN >60 Normal >=60 [facility] Comment on above: Performed By: #### C MP ####[facility] Aizhucyepu530[address] [place], [place] [address]Dr. Shahbaz Rogel Globulin (S) [Mass/Vol] 3.1 g/dL Normal [facility] Comment on above: Performed By: #### C MP ####[facility] Qotgdlkxvi2113 [place] [address]Dr. Shahbaz Juan F Glucose [Mass/Vol] 121 mg/dL Critically high 74-106 [facility] Comment on above: Performed By: #### C MP ####[facility] Rqcasvbphp0191 [place] [address]Dr. Shahbaz Rogel Potassium [Moles/Vol] 3.9 mmol/L Normal 3.4-5.0 [facility] Comment on above: Performed By: #### C MP ####[facility] Wugtcvfpuo0226 [place] [address]Dr. Shahbaz Rogel Protein [Mass/Vol] 5.9 g/dL Critically low 6.1-8.2 [facility] Comment on above: Performed By: #### C MP ####[facility] Pbejpsgagy277[address] [place], [place] [address]Dr. Shahbaz Rogel Sodium [Moles/Vol] 143 mmol/L Normal 137-145 [facility] Comment on above: Performed By: #### C MP ####[facility] Gwyzizbkxy979[address] [place], [place] [address]Dr. Shahbaz Rogel Urea nitrogen [Mass/Vol] 26.0 mg/dL Critically high 7.0-18.0 [facility] Comment on above: Performed By: #### C MP ####[facility] Cwkmfppckm14[address] [place], [place] [address]Dr. Shahbaz Rogel Urea nitrogen/Creatinine [Mass ratio] 33.3 mg/mg Normal [facility] Comment on above: Performed By: #### C MP ####[facility] Yedibwzdoc809[address] [place], [place] [address]Dr. Shahbaz Rogel [id number] 2021 Lmkjp-2-Ecqaknjjusx, Serum 154 mg/dL Normal 101-187 [facility] Comment on above: Performed By: #### A LPHA-1 ####[facility] Mviafdbpgg840[address] [place], [place] [address]Dr. Shahbaz Rogel CBC AUTO DIFFon 01-20-2022 BASO # 0.0 103/ul Normal 0.0-0.1 [facility] Comment on above: Performed By: #### C BC ####[facility] Vprmzszvda5701 [place] [id number]. Shahbaz Rogel Basophils/100 WBC (Bld) 0.0 % Critically low 0.2-2.0 [facility] Comment on above: Performed By: #### C BC ####[facility] Zfbqnepsli0614[address] [place], [place] [address]Dr. Shahbaz Rogel EO # 0.0 103/ul Normal 0.0-0.7 [facility] Comment on above: Performed By: #### C BC ####[facility] Wikkwnfdiu560[address] [place], [place] [address]Dr. Shahbaz Rogel Eosinophils/100 WBC (Bld) 0.0 % Critically low 0.9-7.0 [facility] Comment on above: Performed By: #### C BC ####[facility] Amkgeutuyn486[address] [place], [place] [address]Dr. Shahbaz Rogel Erythrocyte distribution width (RBC) [Ratio] 13.7 % Normal 11.0-15.0 [facility] Comment on above: Performed By: #### C BC ####[facility] Uiuxervkcc277[address] [place], [place] [address]Dr. Shahbaz Rogel Hematocrit (Bld) [Volume fraction] 41.2 % Normal 36.0-48.0 [facility] Comment on above: Performed By: #### C BC ####[facility] Cjrpfixkdu9[address] [place], [place] [address]Dr. Shahbaz Rogel Hemoglobin (Bld) [Mass/Vol] 12.8 g/dL Normal 12.0-16.0 [facility] Comment on above: Performed By: #### C BC ####[facility] Qnvefcwsxj509[address] [place], [place] [address]Dr. Shahbaz Rogel IG # 0.10 10e3/ul Critically high 0.00-0.03 [facility] Comment on above: Performed By: #### C BC ####[facility] Rlxrbqnnxy5461 [place] [id number]. Shahbaz Rogel IG % 0.5 % Normal 0.0-0.5 [facility] Comment on above: Performed By: #### C BC ####[facility] Ypsrwybvkb725[address] [place], [place] [address]Dr. Shahbaz Rogel LYMPH # 0.7 103/ul Critically low 1.2-3.8 [facility] Comment on above: Performed By: #### C BC ####[facility] Zzompynvvq178[address] [place], [place] [address]Dr. Shahbaz Rogel Lymphocytes/100 WBC (Bld) 6.2 % Critically low 20.5-60.0 [facility] Comment on above: Result Comment: dif. not rqd. same as 01/18/22 Performed By: #### C BC ####[facility] Ufwnplihmq[address] [place], [place] [address]Dr. Shahbaz Rogel MANUAL DIFF REQ NO Normal [facility] Comment on above: Performed By: #### C BC ####[facility] Irrzgpbwbh997[address] [place], [place] [address]Dr. Shahbaz Rogel MCH (RBC) [Entitic mass] 27.2 pg Normal 26.7-34.0 [facility] Comment on above: Performed By: #### C BC ####[facility] Jcmvqfvzjx211[address] [place], [place] [address]Dr. Shahbaz Rogel MCHC (RBC) [Mass/Vol] 31.1 g/dL Normal 29.9-35.2 [facility] Comment on above: Performed By: #### C BC ####[facility] Pggzlndczn34[address] [place], [place] [address]Dr. Shahbaz Rogel MCV (RBC) [Entitic vol] 87.5 fL Normal 81.0-99.0 [facility] Comment on above: Performed By: #### C BC ####[facility] Wwlhxbqxms[address] [place], [place] [address]Dr. Shahbaz Rogel MONO # 0.2 103/ul Critically low 0.3-0.8 [facility] Comment on above: Performed By: #### C BC ####[facility] Rutoywihmx8[address] [place] [id number]. Shahbaz Rogel Monocytes/100 WBC (Bld) 1.7 % Normal 1.7-12.0 [facility] Comment on above: Performed By: #### C BC ####[facility] Anipbzbogf6660 [place] [id number]. Shahbaz Rogel NEUT # 9.8 103/ul Critically high 1.4-6.5 [facility] Comment on above: Performed By: #### C BC ####[facility] Sxqluatlpw0665 [place] [address]Dr. Shahbaz Rogel Neutrophils/100 WBC (Bld) 91.6 % Critically high 43.0-75.0 [facility] Comment on above: Performed By: #### C BC ####[facility] Qeryqxtgxw4058 [place] [address]Dr. Shahbaz Rogel Platelet mean volume (Bld) [Entitic vol] 10.0 fL Normal 9.5-13.5 [facility] Comment on above: Performed By: #### C BC ####[facility] Ynatlkwojc9165 [place] [address]Dr. Shahbaz Rogel PLT 198 103/ul Normal 150-450 [facility] Comment on above: Performed By: #### C BC ####[facility] Wvcdvkpfzr7332 [place] [address]Dr. Shahbaz Rogel RBC 4.71 106/ul Normal 4.20-5.40 [facility] Comment on above: Performed By: #### C BC ####[facility] Jpmczpasll1693 [place] [id number]. Shahbaz Rogel WBC 10.7 103/ul Normal 4.0-11.0 [facility] Comment on above: Performed By: #### C BC ####[facility] Vbwwjxupil6375 [place] [address]Dr. Shahbaz Rogel POINT OF CARE GLUCOSEon 04-2 Glucose [Mass/Vol] 157 mg/dL Critically high 74-[address] [facility] Comment on above: Performed By: #### P OCGLUC ####[facility] Blpafprwsw4090 [place] [address]Dr. Lilajarrod Juan F Glucose [Mass/Vol] 225 mg/dL Critically high 74-[address] [facility] Comment on above: Performed By: #### P OCGLUC ####[facility] Lodyptvnpz7121 [place] [address]Dr. Lilajarrod Rogel Glucose [Mass/Vol] 185 mg/dL Critically high 74-[address] [facility] Comment on above: Performed By: #### P OCGLUC ####[facility] Xzbqdwsfue3502 [place] [address]Dr. Lilajarrod Rogel Glucose [Mass/Vol] 134 mg/dL Critically high 74-[address] [facility] Comment on above: Performed By: #### P OCGLUC ####[facility] Vzfftlvnjn459[address] [place], [place] [address]Dr. Shahbaz Rogel PROF 14(COMP METB)on 022 Albumin [Mass/Vol] 3.0 g/dL Critically low 3.4-5.0 [facility] Comment on above: Performed By: #### C MP ####[facility] Yiyutgando758[address] [place], [place] [address]Dr. Shahbaz Rogel Albumin/Globulin [Mass ratio] 0.9 {ratio} Normal [facility] Comment on above: Performed By: #### C MP ####[facility] Vedcvsdpru97[address] [place], [place] [address]Dr. Shahbaz Rogel ALP [Catalytic activity/Vol] 81 U/L Normal 46-116 [facility] Comment on above: Performed By: #### C MP ####[facility] Poxurlxjch129[address] [place], [place] [address]Dr. Shahbaz Rogel ALT [Catalytic activity/Vol] 14 U/L Normal 14-59 [facility] Comment on above: Performed By: #### C MP ####[facility] Brwkfnbtco[address] [place], [place] [address]Dr. Shahbaz Rogel Anion gap [Moles/Vol] 13.1 mmol/L Normal [facility] Comment on above: Performed By: #### C MP ####[facility] Pbtdfthkqv9239 [place] [address]Dr. Shahbaz Rogel AST [Catalytic activity/Vol] 20 U/L Normal 15-37 [facility] Comment on above: Performed By: #### C MP ####[facility] Nlyfmolxfe2628 [place] [address]Dr. Shahbaz Rogel Bilirubin [Mass/Vol] 0.3 mg/dL Normal 0.2-1.3 [facility] Comment on above: Performed By: #### C MP ####[facility] Jkecvoadbe920[address] [place], [place] [address]Dr. Shhabaz Rogel Calcium [Mass/Vol] 8.5 mg/dL Normal 8.5-10.1 [facility] Comment on above: Performed By: #### C MP ####[facility] Viltdndysz286[address] [place], [place] [address]Dr. Shahbaz Rogel Chloride [Moles/Vol] 107 mmol/L Normal 98-107 [facility] Comment on above: Performed By: #### C MP ####[facility] Wjavpcurid496[address] [place], [place] [address]Dr. Shahbaz Rogel CO2 [Moles/Vol] 24.0 mmol/L Normal 22.0-30.0 [facility] Comment on above: Performed By: #### C MP ####[facility] Tlovtonsqf364[address] [place], [place] [address]Dr. Shahbaz Rogel Creatinine [Mass/Vol] 1.00 mg/dL Normal 0.52-1.04 [facility] Comment on above: Performed By: #### C MP ####[facility] Toywcgnijo095[address] [place], [place] [address]Dr. Lilajarrod Juan F EGFR-AF GUAMANIAN >60 Normal >=60 [facility] Comment on above: Performed By: #### C MP ####[facility] Wuoafjehpc278[address] [place], [place] [address]Dr. Shahbaz Rogel EGFR-NON AF GUAMANIAN 57 mL/min/1.73m2 Critically low >=60 [facility] Comment on above: Performed By: #### C MP ####[facility] Leohsmtthm9499 [place] [id number]. Shahbaz Rogel Globulin (S) [Mass/Vol] 3.4 g/dL Normal [facility] Comment on above: Performed By: #### C MP ####[facility] Ifzeozcstv4843 [place] [address]Dr. Shahbaz Rogel Glucose [Mass/Vol] 153 mg/dL Critically high 74-[address] [facility] Comment on above: Performed By: #### C MP ####[facility] Sfvbhvcqdk850[address] [place], [place] [address]Dr. Shahbaz Rogel Potassium [Moles/Vol] 4.1 mmol/L Normal 3.4-5.0 [facility] Comment on above: Performed By: #### C MP ####[facility] Jejugchhan7439[address] [place], [place] [address]Dr. Shahbaz Rogel Protein [Mass/Vol] 6.4 g/dL Normal 6.1-8.2 [facility] Comment on above: Performed By: #### C MP ####[facility] Yblicptmvp614[address] [place], [place] [address]Dr. Shahbaz Rogel Sodium [Moles/Vol] 140 mmol/L Normal 137-145 [facility] Comment on above: Performed By: #### C MP ####[facility] Lhmraisqxc6788[address] [place], [place] [address]Dr. Shahbaz Rogel Urea nitrogen [Mass/Vol] 26.0 mg/dL Critically high 7.0-18.0 [facility] Comment on above: Performed By: #### C MP ####[facility] Uutsbqogip8[address] [place], [place] [address]Dr. Shahbaz Rogel Urea nitrogen/Creatinine [Mass ratio] 26.5 mg/mg Normal [facility] Comment on above: Performed By: #### C MP ####[facility] Owlizdnmox0836[address] [place], [place] [address]Dr. Shahbaz Rogel BNPon 01-19-2022 Natriuretic peptide B (Bld) [Mass/Vol] 117.0 pg/mL Normal <=900.0 [facility] Comment on above: Performed By: #### B RISK ADVISOR, CMP ####[facility] Yazskwijph6680 [place] [address]Dr. Shahbaz Rogel CBC AUTO DIFFon 01-19-2022 BASO # 0.0 103/ul Normal 0.0-0.1 [facility] Comment on above: Performed By: #### C BC ####[facility] Xgzhqjjukv757[address] [place], [place] [address]Dr. Shahbaz Juan F Basophils/100 WBC (Bld) 0.0 % Critically low 0.2-2.0 [facility] Comment on above: Performed By: #### C BC ####[facility] Ojfvbypuii330252 [address] [place], [place] [address]Dr. Shahbaz Rogel EO # 0.0 103/ul Normal 0.0-0.7 [facility] Comment on above: Performed By: #### C BC ####[facility] Ibfrtcktbk3855[address] [place], [place] [address]Dr. Shahbaz Rogel Eosinophils/100 WBC (Bld) 0.0 % Critically low 0.9-7.0 [facility] Comment on above: Performed By: #### C BC ####[facility] Ebsbhindwl85475[address] [place], [place] [address]Dr. Shahbaz Rogel Erythrocyte distribution width (RBC) [Ratio] 13.4 % Normal 11.0-15.0 [facility] Comment on above: Performed By: #### C BC ####[facility] Ljcqhkkdls244[address] [place], [place] [address]Dr. Shahbaz Rogel Hematocrit (Bld) [Volume fraction] 46.3 % Normal 36.0-48.0 [facility] Comment on above: Performed By: #### C BC ####[facility] Wemqrssycd0928[address] [place], [place] [address]Dr. Shahbaz Rogel Hemoglobin (Bld) [Mass/Vol] 14.3 g/dL Normal 12.0-16.0 [facility] Comment on above: Performed By: #### C BC ####[facility] Gihcuhcvze387052 [address] [place], [place] [address]Dr. Lilajarrod Rogel IG # 0.00 10e3/ul Normal 0.00-0.03 [facility] Comment on above: Performed By: #### C BC ####[facility] Loygnexbtt1611 [place] [address]DrChen Shahbaz Rogel IG % 0.0 % Normal 0.0-0.5 [facility] Comment on above: Performed By: #### C BC ####[facility] Hczxobfwex9645 [place] [address]DrChen Shahbaz Rogel LYMPH # 0.6 103/ul Critically low 1.2-3.8 [facility] Comment on above: Performed By: #### C BC ####[facility] Ucwhctpass76[address] [place], [place] [address]DrChen Shahbaz Rogel Lymphocytes/100 WBC (Bld) 14.2 % Critically low 20.5-60.0 [facility] Comment on above: Performed By: #### C BC ####[facility] Kzpmvzihwh[address] [place], [place] [address]DrChen Shahbaz Rogel MANUAL DIFF REQ NO Normal [facility] Comment on above: Performed By: #### C BC ####[facility] Hkvghqfcbw767[address] [place], [place] [address]DrChen Shahbaz Rogel MCH (RBC) [Entitic mass] 27.7 pg Normal 26.7-34.0 [facility] Comment on above: Performed By: #### C BC ####[facility] Wfehsdecib978[address] [place], [place] [address]DrChen Shahbaz Rogel MCHC (RBC) [Mass/Vol] 30.9 g/dL Normal 29.9-35.2 [facility] Comment on above: Performed By: #### C BC ####[facility] Rpetnrrtpe4516[address] [place], [place] [address]DrChen Shahbaz Rogel MCV (RBC) [Entitic vol] 89.6 fL Normal 81.0-99.0 [facility] Comment on above: Performed By: #### C BC ####[facility] Tigkiguodl85[address] [place], [place] [address]DrChen Shahbaz Juan F MONO # 0.0 103/ul Critically low 0.3-0.8 [facility] Comment on above: Performed By: #### C BC ####[facility] Yzwiswmlak9168 [place] [address]Dr. Shahbaz Rogel Monocytes/100 WBC (Bld) 1.0 % Critically low 1.7-12.0 [facility] Comment on above: Performed By: #### C BC ####[facility] Hmpnaaclar7448 [place] [address]Dr. Shahbaz Rogel NEUT # 3.5 103/ul Normal 1.4-6.5 [facility] Comment on above: Performed By: #### C BC ####[facility] Wakpwmwfdy3133 [place] [address]Dr. Shahbaz Rogel Neutrophils/100 WBC (Bld) 84.8 % Critically high 43.0-75.0 [facility] Comment on above: Performed By: #### C BC ####[facility] Mvadwvsbxp1093 [place] [address]Dr. Shahbaz Rogel Platelet mean volume (Bld) [Entitic vol] 9.8 fL Normal 9.5-13.5 [facility] Comment on above: Performed By: #### C BC ####[facility] Xwkrgskyjp616[address] [place], [place] [address]Dr. Shahbaz Rogel PLT 185 103/ul Normal 150-450 [facility] Comment on above: Performed By: #### C BC ####[facility] Qlxrvmfjks0506 [place] [address]Dr. Shahbaz Rogel RBC 5.17 106/ul Normal 4.20-5.40 [facility] Comment on above: Performed By: #### C BC ####[facility] Uassmyhlfg4324 [place] [address]Dr. Shahbaz Rogel WBC 4.2 103/ul Normal 4.0-11.0 [facility] Comment on above: Performed By: #### C BC ####[facility] Hrxrlfhovo05[address] [place], [place] [address]Dr. Shahbaz Rogel LACTATE/LACTIC ACIDon 2021 Lactate [Moles/Vol] 1.7 mmol/L Normal 0.7-2.0 [facility] Comment on above: Performed By: #### L ACT ####[facility] Ctvfohulqp3550 [place] [address]Dr. Shahbaz Rogel POINT OF CARE GLUCOSEon 01-01 Glucose [Mass/Vol] 173 mg/dL Critically high 74-[address] [facility] Comment on above: Performed By: #### P OCGLUC ####[facility] Thrswunzhn7099[address] [place], [place] [address]Dr. Lilajarrod Juan F Glucose [Mass/Vol] 181 mg/dL Critically high 74-[address] [facility] Comment on above: Performed By: #### P OCGLUC ####[facility] Wadpcfsljh2839[address] [place], [place] [address]Dr. Lilajarrod Juan F Glucose [Mass/Vol] 154 mg/dL Critically high 74-[address] [facility] Comment on above: Performed By: #### P OCGLUC ####[facility] Aggcfmzmle237[address] [place], [place] [address]Dr. Shahbaz Rogel PROF 14(COMP METB)on 022 Albumin [Mass/Vol] 3.5 g/dL Normal 3.4-5.0 [facility] Comment on above: Performed By: #### B RISK ADVISOR, CMP ####[facility] Pbfbdknubk5426[address] [place], [place] [address]Dr. Shahbaz Rogel Albumin/Globulin [Mass ratio] 0.9 {ratio} Normal [facility] Comment on above: Performed By: #### B RISK ADVISOR, CMP ####[facility] Xtroausucz235[address] [place], [place] [address]Dr. Shahbaz Rogel ALP [Catalytic activity/Vol] 107 U/L Normal 46-116 [facility] Comment on above: Performed By: #### B RISK ADVISOR, CMP ####[facility] Hknxkbzmgo4410[address] [place], [place] [address]Dr. Shahbaz Rogel ALT [Catalytic activity/Vol] 18 U/L Normal 14-59 [facility] Comment on above: Performed By: #### B RISK ADVISOR, CMP ####[facility] Bcwguvvbtp[address] [place], [place] [address]Dr. Shahbaz Rogel Anion gap [Moles/Vol] 14.1 mmol/L Normal [facility] Comment on above: Performed By: #### B RISK ADVISOR, CMP ####[facility] Zehieowesn055[address] [place], [place] [address]Dr. hSahbaz Rogel AST [Catalytic activity/Vol] 19 U/L Normal 15-37 [facility] Comment on above: Performed By: #### B RISK ADVISOR, CMP ####[facility] Nkxxqpfens156[address] [place], [place] [address]Dr. Shahbaz Rogel Bilirubin [Mass/Vol] 0.5 mg/dL Normal 0.2-1.3 [facility] Comment on above: Performed By: #### B RISK ADVISOR, CMP ####[facility] Rosmwtknko234[address] [place], [place] [address]Dr. Shahbaz Rogel Calcium [Mass/Vol] 8.5 mg/dL Normal 8.5-10.1 [facility] Comment on above: Performed By: #### B RISK ADVISOR, CMP ####[facility] Bsutofmjvp457[address] [place], [place] [address]Dr. Shahbaz Rogel Chloride [Moles/Vol] 103 mmol/L Normal 98-107 [facility] Comment on above: Performed By: #### B RISK ADVISOR, CMP ####[facility] Exklixjnmd7512[address] [place], [place] [address]Dr. Shahbaz Rogel CO2 [Moles/Vol] 25.4 mmol/L Normal 22.0-30.0 [facility] Comment on above: Performed By: #### B RISK ADVISOR, CMP ####[facility] Yzuctnspqa763[address] [place], [place] [address]Dr. Shahbaz Rogel Creatinine [Mass/Vol] 1.48 mg/dL Critically high 0.52-1.04 [facility] Comment on above: Performed By: #### B RISK ADVISOR, CMP ####[facility] Tcxltkwwgk4520[address] [place], [place] [address]Dr. Shahbaz Rogel EGFR-AF GUAMANIAN 44 mL/min/1.73m2 Critically low >=60 [facility] Comment on above: Performed By: #### B RISK ADVISOR, CMP ####[facility] Ptopbvpmhz7284 [place] [id number]. Shahbaz Rogel EGFR-NON AF GUAMANIAN 36 mL/min/1.73m2 Critically low >=60 [facility] Comment on above: Performed By: #### B RISK ADVISOR, CMP ####[facility] Ezawtdndud1825 [place] [address]Dr. Shahbaz Rogel Globulin (S) [Mass/Vol] 3.7 g/dL Normal [facility] Comment on above: Performed By: #### B RISK ADVISOR, CMP ####[facility] Ewccsypvzd1047 [place] [address]Dr. Shahbaz Rogel Glucose [Mass/Vol] 203 mg/dL Critically high 74-106 [facility] Comment on above: Performed By: #### B RISK ADVISOR, CMP ####[facility] Fepaopxjhy9782 [place] [address]Dr. Shahbaz Rogel Potassium [Moles/Vol] 3.5 mmol/L Normal 3.4-5.0 [facility] Comment on above: Performed By: #### B RISK ADVISOR, CMP ####[facility] Nhrsfgzrxx978[address] [place], [place] [address]Dr. Shahbaz Rogel Protein [Mass/Vol] 7.2 g/dL Normal 6.1-8.2 [facility] Comment on above: Performed By: #### B RISK ADVISOR, CMP ####[facility] Ubzsiojxxa082[address] [place], [place] [address]Dr. Shahbaz Rogel Sodium [Moles/Vol] 139 mmol/L Normal 137-145 [facility] Comment on above: Performed By: #### B RISK ADVISOR, CMP ####[facility] Vrbawzqojn14[address] [place], [place] [address]Dr. Shahbaz Rogel Urea nitrogen [Mass/Vol] 17.0 mg/dL Normal 7.0-18.0 [facility] Comment on above: Performed By: #### B RISK ADVISOR, CMP ####[facility] Wkikngnigp857[address] [place], [place] [address]Dr. Shahbaz Rogel Urea nitrogen/Creatinine [Mass ratio] 11.5 mg/mg Normal [facility] Comment on above: Performed By: #### B RISK ADVISOR, CMP ####[facility] Xutygzkiaf4117 [place] [address]Dr. Shahbaz Rogel BNPon 01-18-2022 Natriuretic peptide B (Bld) [Mass/Vol] 55.0 pg/mL Normal <=900.0 [facility] Comment on above: Performed By: #### C MP, BNP, HSTROPN ####[facility] Keewogrlyt7492 [place] [address]Dr. Shahbaz Rogel CBC W MANUAL DIFFon 01-19-20 ATYPICAL LYMPH # 0.12 103/ul Normal [facility] Comment on above: Performed By: #### C CAIN ####[facility] Jajmsgmwvx1913[address] [place], [place] [address]Dr. Shahbaz Rogel ATYPICAL LYMPH % 2 % Normal [facility] Comment on above: Performed By: #### C CAIN ####[facility] Qhbyspafyq[address] [place], [place] [address]Dr. Shahbaz Rogel BAND # 0.0 103/ul Normal 0.0-0.3 [facility] Comment on above: Performed By: #### C CAIN ####[facility] Ewdjwsedej45[address] [place], [place] [address]Dr. Shahbaz Rogel BAND % 0 % Normal 0-5 [facility] Comment on above: Performed By: #### C CAIN ####[facility] Oasfcpidiy[address] [place], [place] [address]Dr. Shahbaz Rogel BASOM # 0.00 103/ul Normal 0.00-0.10 [facility] Comment on above: Performed By: #### C CAIN ####[facility] Caelvtiehi2312 [place] [address]Dr. Shahbaz Rogel BASOM % 0.0 % Critically low 0.2-2.0 [facility] Comment on above: Performed By: #### C BCBRICE ####[facility] Fyqmjtstpo[address] [place], [place] [address]Dr. Shahbaz Rogel BLAST # Normal [facility] Comment on above: Performed By: #### C CAIN ####[facility] Llfllxiubu6671 [place] [id number]. Shahbaz Rogel BLAST % Normal [facility] Comment on above: Performed By: #### C CAIN ####[facility] Mnkssjykns1965 [place] [id number]. Shahbaz Rogel CORRECTED WBC Normal 4.0-11.0 [facility] Comment on above: Performed By: #### C CAIN ####[facility] Fnmjgpjbpv4934 [place] [id number]. Shahbaz Rogel EOS # 0.25 103/ul Normal 0.00-0.70 [facility] Comment on above: Performed By: #### C CAIN ####[facility] Yujfpcbpth7875 [place] [address]Dr. Shahbaz Rogel EOS% 4.0 % Normal 0.9-7.0 [facility] Comment on above: Performed By: #### C CANI ####[facility] Ftrppwkehi248[address] [place], [place] [address]Dr. Shahbaz Rogel HCT 46.8 % Normal 36.0-48.0 [facility] Comment on above: Performed By: #### C CAIN ####[facility] Dsgpsulxjx557[address] [place], [place] [address]Dr. Shahbaz Rogel HGB 14.9 g/dl Normal 12.0-16.0 [facility] Comment on above: Performed By: #### C CAIN ####[facility] Wdldchyshd9995 [place] [id number]. Shahbaz Rogel LYMPHM # 0.68 103/ul Critically low 1.20-3.80 [facility] Comment on above: Performed By: #### C CAIN ####[facility] Cqgjvllyax0729 [place] [id number]. Shahbaz Rogel LYMPHM% 11.0 % Critically low 20.5-60.0 [facility] Comment on above: Performed By: #### C CAIN ####[facility] Ofddwkosup6136 [place] [id number]. Shahbaz Rogel MCH 27.6 pg Normal 26.7-34.0 [facility] Comment on above: Performed By: #### Cheri BARLOW ####[facility] Svjnenljev1361 [place] [id number]. Shahbaz Rogel MCHC 31.8 g/dl Normal 29.9-35.2 [facility] Comment on above: Performed By: #### Cheri BARLOW ####[facility] Rxuurjcdlu3890 [place] [id number]. Shahbaz Rogel MCV 86.8 fL Normal 81.0-99.0 [facility] Comment on above: Performed By: #### C CAIN ####[facility] Qbdztehtce8949 [place] [id number]. Shahbaz Rogel METAMYELOCYTE # Normal [facility] Comment on above: Performed By: #### Cheri BARLOW ####[facility] Toachjyeen045[address] [place] [id number]. Shahbaz Rogel METAMYELOCYTE % Normal [facility] Comment on above: Performed By: #### Cheri BARLOW ####[facility] Osxokbxuis6146 [place] [place] [id number]. Shahbaz Rogel MONOM# 0.19 103/ul Critically low 0.30-0.80 [facility] Comment on above: Performed By: #### Cheri BARLOW ####[facility] Bvtsreppgj2110 [place] [id number]. Shahbaz Rogel MONOM% 3.0 % Normal 1.7-12.0 [facility] Comment on above: Performed By: #### Chrei BARLOW ####[facility] Dngwakoiey8622 [place] [id number]. Shahbaz Rogel MPV 9.6 fL Normal 9.5-13.5 [facility] Comment on above: Performed By: #### Cheri BARLOW ####[facility] Gptqsbtz[address] [place], [place] [address]Dr. Shahbaz Rogel MYELOCYTE # Normal [facility] Comment on above: Performed By: #### Cheri BARLOW ####[facility] Qyiaboosnt[address] [place], [place] [address]Dr. Shahbaz Rogel MYELOCYTE % Normal [facility] Comment on above: Performed By: #### Cheri BARLOW ####[facility] Yrxsugrnmd5058 [place] [id number]. Shahbaz Rogel NRBC Normal [facility] Comment on above: Performed By: #### Cheri BARLOW ####[facility] Bqyjfxmwvx2759 [place] [id number]. Shahbaz Rogel PLT 203 103/ul Normal 150-450 [facility] Comment on above: Performed By: #### Cheri BARLOW ####[facility] Yfwaalzash3123 [place] [id number]. Shahbaz Rogle RBC 5.39 106/ul Normal 4.20-5.40 [facility] Comment on above: Performed By: #### Cheri BARLOW ####[facility] Vvgnwadjdt[address] [place], [place] [address]Dr. Shahbaz Rogel RDW 13.7 % Normal 11.0-15.0 [facility] Comment on above: Performed By: #### Cheri BARLOW ####[facility] Sbarurvkpm[address] [place], [place] [address]Dr. Shahbaz Rogel SEG # 4.96 103/ul Normal 1.40-6.50 [facility] Comment on above: Performed By: #### Cheri BARLOW ####[facility] Nawvgulswj[address] [place], [place] [address]Dr. Shahbaz Rogel SEG % 80.0 % Critically high 43.0-75.0 [facility] Comment on above: Performed By: #### Cheri BARLOW ####[facility] Scwbdxkpnf[address] [place], [place] [address]Dr. Shahbaz Rogel WBC 6.2 103/ul Normal 4.0-11.0 [facility] Comment on above: Performed By: #### Cheri BARLOW ####[facility] Ishgwyikri[address] [place], [place] [address]Dr. Shahbaz Rogel CULTURE BLOODon 01-18-2022 Microscopic examination of blood, culture Culture Observations: No growth at 5 days. Normal [facility] Comment on above: Performed By: #### B LDCX2 ####[facility] Ybdirrmnyt1190 [place] [id number]. Shahbaz Rogel Microscopic examination of blood, culture Culture Observations: No growth at 5 days Normal [facility] Comment on above: Performed By: #### B LDCX1 ####[facility] Yfhfrvvtuv5246 [place] [id number]. Shahbaz Rogel Covid-19 PCR ([facility])on 12-31 SARS-CoV-2 (COVID-19) RNA PAVAN+probe Ql (Unsp spec) Not detected Normal NOT DETECTED [facility] Comment on above: Result Comment: This test is not yet approved or cleared by the [place] FDA. When there are no FDA-approved or cleared tests available, and other criteria are met, FDA can make tests available under an emergency access mechanism called an Emergency Use Authorization (EUA). The EUA for this test is supported by the Water Pollution Scientist of Health and Human Service's (HHS's) declaration [...] with SARS-CoV-2. Performed By: #### C VDTBH ####[facility] Eiydcmbazn0495 [place] [id number]. Shahbaz Rogel D-DIMERon 01-18-2022 D-DIMER 0.29 mg/L FEU Normal 0.19-0.50 [facility] Comment on above: Performed By: #### D DIM ####[facility] Vrarqkwtyg[address] [place], [place] [address]Dr. Shahbaz Rogel D-DIMER COMMENTS SEE BELOW Normal [facility] Comment on above: Result Comment: Incr eases [...] generalized hospitalization. Performed By: #### D DIM ####[facility] Rxdlqanmbi9[address] [place], [place] [address]Dr. Lilajarrod Juan F INFLUENZA A AND B AGon 01-18 INFLUANE SEE BELOW Normal [facility] Comment on above: Result Comment: Nega tive for Flu A protein angiten. Infection due to Flu A cannot be ruled out. Flu A angiten in the sample may be below the detection limit of the test. Performed By: #### I NFLUAB ####[facility] Tdgnpnhdwz[address] [place], [place] [address]Dr. Shahbaz Rogel INFLUBNEGH SEE BELOW Normal [facility] Comment on above: Result Comment: Nega tive for Flu B protein antigen. Infection due to Flu B cannot be ruled out. Flu B antigen in the sample may be below the detection limit of the test. Performed By: #### I NFLUAB ####[facility] Mmcxxrtqwy[address] [place], [place] [address]Dr. Lilajarrod [facility] INFLUENZA A AG Negative Normal NEGATIVE SEE COMMENT [facility] Comment on above: Performed By: #### I NFLUAB ####[facility] Bwhyimiagw025[address] [place], [place] [address]Dr. Shahbaz [facility] INFLUENZA B AG Negative Normal NEGATIVE SEE COMMENT [facility] Comment on above: Performed By: #### I NFLUAB ####[facility] Dpnalolwgr444[address] [place], [place] [address]Dr. Shahbaz Rogel INTERNAL CONTROLS Within Normal Limits Normal Wi thin Normal Limits [facility] Comment on above: Performed By: #### I NFLUAB ####[facility] Qduvsdfotw138[address] [place], [place] [address]Dr. Shahbaz Rogel LACTATE/LACTIC ACIDon 2021 Lactate [Moles/Vol] 1.0 mmol/L Normal 0.7-2.0 [facility] Comment on above: Performed By: #### L ACT ####[facility] Ieehpaldqp1268 [place] [address]Dr. Shahbaz Rogel PROF 14(COMP METB)on 022 Albumin [Mass/Vol] 3.8 g/dL Normal 3.4-5.0 [facility] Comment on above: Performed By: #### C MP, BNP, HSTROPN ####[facility] Chrstdvafa[address] [place], [place] [address]Dr. Shahbaz Rogel Albumin/Globulin [Mass ratio] 1.0 {ratio} Normal [facility] Comment on above: Performed By: #### C MP, BNP, HSTROPN ####[facility] Zbjsvsmrfe9[address] [place], [place] [address]Dr. Shahbaz Rogel ALP [Catalytic activity/Vol] 116 U/L Normal 46-116 [facility] Comment on above: Performed By: #### C MP, BNP, HSTROPN ####[facility] Zmzoqnqdcj056[address] [place], [place] [address]Dr. Shahbaz Rogel ALT [Catalytic activity/Vol] 16 U/L Normal 14-59 [facility] Comment on above: Performed By: #### C MP, BNP, HSTROPN ####[facility] Cexcoxsnei447[address] [place], [place] [address]Dr. Shahbaz Rogel Anion gap [Moles/Vol] 9.4 mmol/L Normal [facility] Comment on above: Performed By: #### C MP, BNP, HSTROPN ####[facility] Xlurmqphqr350[address] [place], [place] [address]Dr. Shahbaz Rogel AST [Catalytic activity/Vol] 19 U/L Normal 15-37 [facility] Comment on above: Performed By: #### C MP, BNP, HSTROPN ####[facility] Wprcyfvfet9[address] [place], [place] [address]Dr. Shahbaz Rogel Bilirubin [Mass/Vol] 0.5 mg/dL Normal 0.2-1.3 [facility] Comment on above: Performed By: #### C MP, BNP, HSTROPN ####[facility] Fsaxnwilwc1638 [place] [address]Dr. Shahbaz Rogel Calcium [Mass/Vol] 8.9 mg/dL Normal 8.5-10.1 [facility] Comment on above: Performed By: #### C MP, BNP, HSTROPN ####[facility] Mzfqbozczf1591 [place] [address]Dr. Shahbaz Rogel Chloride [Moles/Vol] 104 mmol/L Normal 98-107 [facility] Comment on above: Performed By: #### C MP, BNP, HSTROPN ####[facility] Vbklldlgnu6485 [place] [address]Dr. Shahbaz Rogel CO2 [Moles/Vol] 27.2 mmol/L Normal 22.0-30.0 [facility] Comment on above: Performed By: #### C MP, BNP, HSTROPN ####[facility] Crwmqqajlf074[address] [place], [place] [address]Dr. Shahbaz Rogel Creatinine [Mass/Vol] 0.99 mg/dL Normal 0.52-1.04 [facility] Comment on above: Performed By: #### C MP, BNP, HSTROPN ####[facility] Adrnkkmcun7[address] [place], [place] [address]Dr. Shahbaz Rogel EGFR-AF GUAMANIAN >60 Normal >=60 [facility] Comment on above: Performed By: #### C MP, BNP, HSTROPN ####[facility] Gbevpynwlo3174 [place] [address]Dr. Shahbaz Rogel EGFR-NON AF GUAMANIAN 58 mL/min/1.73m2 Critically low >=60 [facility] Comment on above: Performed By: #### C MP, BNP, HSTROPN ####[facility] Lqifglvkgc109[address] [place], [place] [address]Dr. Shahbaz Rogel Globulin (S) [Mass/Vol] 3.8 g/dL Normal [facility] Comment on above: Performed By: #### C MP, BNP, HSTROPN ####[facility] Mscbrglrwr4072 [place] [address]Dr. Shahbaz Rogel Glucose [Mass/Vol] 104 mg/dL Normal 74-106 [facility] Comment on above: Performed By: #### C MP, BNP, HSTROPN ####[facility] Jgoytbwlsl1337 [place] [address]Dr. Shahbaz Rogel Potassium [Moles/Vol] 3.6 mmol/L Normal 3.4-5.0 [facility] Comment on above: Performed By: #### C MP, BNP, HSTROPN ####[facility] Ehpxeyrpjw8821 [place] [address]Dr. Shahbaz Rogel Protein [Mass/Vol] 7.6 g/dL Normal 6.1-8.2 [facility] Comment on above: Performed By: #### C MP, BNP, HSTROPN ####[facility] Ppsctidnbs2909 [place] [address]Dr. Shahbaz Rogel Sodium [Moles/Vol] 137 mmol/L Normal 137-145 [facility] Comment on above: Performed By: #### C MP, BNP, HSTROPN ####[facility] Qshvkkxhrd7022 [place] [address]Dr. Shahbaz Rogel Urea nitrogen [Mass/Vol] 9.0 mg/dL Normal 7.0-18.0 [facility] Comment on above: Performed By: #### C MP, BNP, HSTROPN ####[facility] Rivqzidksq7702 [place] [address]Dr. Shahbaz Rogel Urea nitrogen/Creatinine [Mass ratio] 9.1 mg/mg Normal [facility] Comment on above: Performed By: #### C MP, BNP, HSTROPN ####[facility] Hamhjkhnty[address] [place], [place] [address]Dr. Shahbaz Rogel TROPONIN, HIGH SENSITIVITYon 01-18-2022 HSTROP 6.4 pg/mL Normal 4.0-35.5 [facility] Comment on above: Result Comment: CUT- OFF POINTS HAVE BEEN ESTABLISHED BASED ON THE FOURTH UNIVERSAL DEFINITIONS OF MYOCARDIALINFARCTION. THE UPPER REFERENCE LIMIT (URL) OF TROPONIN, DEFINED THE 99TH PERCENTILE OFcTnI DISTRIBUTION IN A REFERENCE POPULATION, HAS BEEN CONFIRMED THE DECISION THRESHOLDFOR OR DIAGNOSIS. Performed By: #### C MP, BNP, HSTROPN ####[facility] Ntgeosljmi9705 [place], [place] [address]Ks. Shahbaz Rogel XR CHEST 2 Von 01-18-2022 XR CHEST 2 V Normal [facility] URINALYSIS REFLEXon 04-04-20 Appearance (U) CLEAR Normal CLEAR [facility] Comment on above: Order Comment: No: D o not add to previous draw Performed By: #### 1 0070, 08635, 20282, 74903, 46971, 78155 #### [facility] [address] [place] [address], [place] Bilirubin [Mass/Vol] Negative Normal NEGATIVE [facility] Comment on above: Order Comment: No: D o not add to previous draw Performed By: #### 1 0070, 05343, 26948, 36919, 05234, 44015 #### [facility] [address] [place] [address], [place] BLOOD Negative Normal NEGATIVE [facility] Comment on above: Order Comment: No: D o not add to previous draw Performed By: #### 1 0070, 10334, 28744, 08560, 93480, 95355 #### [facility] [address] [place] [address], [place] Color (U) YELLOW Normal YELLOW [facility] Comment on above: Order Comment: No: D o not add to previous draw Performed By: #### 1 0070, 86605, 81336, 16737, 58886, 84599 #### [facility] [address] [place] [address], [place] Glucose [Mass/Vol] Negative Normal NEGATIVE [facility] Comment on above: Order Comment: No: D o not add to previous draw Performed By: #### 1 0070, 83708, 95175, 49329, 64293, 88108 #### [facility] [address] [place] [address], [place] KETONE Negative Normal NEGATIVE [facility] Comment on above: Order Comment: No: D o not add to previous draw Performed By: #### 1 0070, 64199, 38636, 22734, 62326, 80497 #### [facility] [address] [place] [address], [facility] [place] ELIU Negative Normal NEGATIVE [facility] Comment on above: Order Comment: No: D o not add to previous draw Performed By: #### 1 0070, 74337, 89730, 76296, 35757, 96107 #### [facility] [address] [place] [address], [facility] MICRO NOT DONE Normal [facility] Comment on above: Order Comment: No: D o not add to previous draw Result Comment: Micr oscopics not performed on urines with negative chemical reactions unless requested in original order Performed By: #### 1 0070, 25906, 29336, 35631, 44509, 57809 #### [facility] [address] [place] [address], [facility] Nitrite Ql (U) Negative Normal NEGATIVE [facility] Comment on above: Order Comment: No: D o not add to previous draw Performed By: #### 1 0070, 29030, 39429, 01514, 61991, 69640 #### [facility] [address] [place] [address], [facility] pH (Bld) 5.0 Normal 5.0-8.0 [facility] Comment on above: Order Comment: No: D o not add to previous draw Performed By: #### 1 0070, 45178, 09244, 82026, 65837, 43796 #### [facility] [address] [place] [address], [facility] Protein (U) [Mass/Vol] Negative Normal NEGATIVE Th e [facility] Comment on above: Order Comment: No: D o not add to previous draw Performed By: #### 1 0070, 81769, 86742, 79047, 52641, 85825 #### [facility] [address] [place] [address], [facility] SPEC GRAV 1.012 Low 1.015-1.02 0 [facility] Comment on above: Order Comment: No: D o not add to previous draw Performed By: #### 1 0070, 21925, 21417, 28297, 99842, 64882 #### [facility] [address] [place] [address], [facility] BASIC METABOLIC PANELon 07-0 -2019 Calcium [Mass/Vol] 8.4 mg/dL Low 8.6-10.3 [facility] Comment on above: Order Comment: No: D o not add to previous draw Performed By: #### 1 0070, 77377, 20352, 75517, 44068, 81665 #### [facility] [address] [place] [address], [facility] Chloride [Moles/Vol] 101 mmol/L Normal 98-107 [facility] Comment on above: Order Comment: No: D o not add to previous draw Performed By: #### 1 0070, 80060, 83210, 92991, 94228, 22243 #### [facility] [address] [place] [address], [facility] CO2 [Moles/Vol] 29 mmol/L Normal 21-31 [facility] Comment on above: Order Comment: No: D o not add to previous draw Performed By: #### 1 0070, 00596, 96822, 54639, 52907, 64777 #### [facility] [address] [place] [id number], [facility] Creatinine [Mass/Vol] 0.79 mg/dL Normal 0.60-1.20 [facility] Comment on above: Order Comment: No: D o not add to previous draw Performed By: #### 1 0070, 53046, 26905, 78126, 90707, 79709 #### [facility] [address] [place] [address], [facility] GFR/1.73 sq M predicted among blacks MDRD (S/P/Bld) [Vol rate/Area] mL/min/{1.73_m2} Normal >60 [facility] Comment on above: Order Comment: No: D o not add to previous draw Performed By: #### 1 0070, 15370, 10119, 89295, 86975, 26586 #### [facility] [address] [place] [address], [facility] GFR/1.73 sq M predicted among non-blacks MDRD (S/P/Bld) [Vol rate/Area] mL/min/{1.73_m2} Normal >60 [facility] Comment on above: Order Comment: No: D o not add to previous draw Performed By: #### 1 0070, 61188, 32486, 23985, 90031, 63057 #### [facility] [address] [place] [address], [facility] Glucose [Mass/Vol] 91 mg/dL Normal 70-100 [facility] Comment on above: Order Comment: No: D o not add to previous draw Performed By: #### 1 0070, 35801, 47928, 20888, 15573, 00843 #### [facility] [address] [place] [address], [facility] Potassium [Moles/Vol] 3.9 mmol/L Normal 3.5-5.1 [facility] Comment on above: Order Comment: No: D o not add to previous draw Performed By: #### 1 0070, 56454, 57798, 34895, 16978, 04676 #### [facility] [address] [place] [address], [facility] Sodium [Moles/Vol] 133 mmol/L Low 136-145 [facility] Comment on above: Order Comment: No: D o not add to previous draw Performed By: #### 1 0070, 48559, 61518, 50338, 08010, 50679 #### [facility] [address] Urea nitrogen [Mass/Vol] 10 mg/dL Normal 7-25 [facility] Comment on above: Order Comment: No: D o not add to previous draw Performed By: #### 1 0070, 87025, 67779, 07255, 74615, 06701 #### [facility] [address] [facility]. [address] CBC W/DIFFon 04-02-2020 ABS BASOPHILS 0.0 10*3/uL Normal 0.0-0.2 [facility] Comment on above: Order Comment: No: D o not add to previous draw Performed By: #### 1 0070, 39391, 84825, 24477, 42358, 66244 #### [facility] [address] ABS IMM GRANS 0.0 10*3/uL Normal 0.0-0.2 [facility] Comment on above: Order Comment: No: D o not add to previous draw Performed By: #### 1 0070, 01722, 12149, 95421, 25822, 55614 #### [facility] [address] ABS NEUTROPHILS 4.5 10*3/uL Normal 1.6-7.6 [facility] Comment on above: Order Comment: No: D o not add to previous draw Performed By: #### 1 0070, 36084, 19042, 10269, 98974, 28552 #### [facility] [address] [facility]. [address] Basophils/100 WBC (Bld) 0.2 % Normal 0.0-1.0 [facility] Comment on above: Order Comment: No: D o not add to previous draw Performed By: #### 1 0070, 21994, 79636, 77194, 02572, 58150 #### [facility] [address] [place] [address], [facility] Eosinophils (Bld) [#/Vol] 0.2 10*3/uL Normal 0.0-0.5 [facility] Comment on above: Order Comment: No: D o not add to previous draw Performed By: #### 1 0070, 82600, 81123, 36686, 80716, 50393 #### [facility] [address] [place] [address], [facility] Eosinophils/100 WBC (Bld) 3.6 % Normal 0.0-6.0 [facility] Comment on above: Order Comment: No: D o not add to previous draw Performed By: #### 1 0070, 23980, 32682, 48477, 23319, 40876 #### [facility] [address] [place] [address], [facility] Erythrocyte distribution width (RBC) [Ratio] 12.7 % Normal 11.5-15.0 [facility] Comment on above: Order Comment: No: D o not add to previous draw Performed By: #### 1 0070, 28530, 61155, 17964, 65638, 16933 #### [facility] [address] [place] [address], [facility] Hematocrit (Bld) [Volume fraction] 42.9 % Normal 36.0-45.0 [facility] Comment on above: Order Comment: No: D o not add to previous draw Performed By: #### 1 0070, 36817, 80654, 21491, 61966, 19152 #### [facility] [address] [place] [address], [facility] Hemoglobin (Bld) [Mass/Vol] 13.5 g/dL Normal 12.0-15.0 [facility] Comment on above: Order Comment: No: D o not add to previous draw Performed By: #### 1 0070, 39295, 96276, 54327, 90970, 36411 #### [facility] [address] [facility] [address], [facility] IMMATURE GRANS 0.3 % Normal 0.0-1.0 [facility] Comment on above: Order Comment: No: D o not add to previous draw Performed By: #### 1 0070, 95272, 46637, 70145, 00662, 19653 #### [facility] [address] [place] [address], [facility] Lymphocytes (Bld) [#/Vol] 1.1 10*3/uL Low 1.2-4.0 [facility] Comment on above: Order Comment: No: D o not add to previous draw Performed By: #### 1 0070, 67107, 85370, 50839, 72568, 89349 #### [facility] [address] [place] [address], [facility] Lymphocytes/100 WBC (Bld) 18.0 % Low 20.0-45.0 [facility] Comment on above: Order Comment: No: D o not add to previous draw Performed By: #### 1 0070, 72078, 28779, 96884, 65005, 40541 #### [facility] [address] [place] [address], [facility] MCH (RBC) [Entitic mass] 27.4 pg Normal 27.0-33.0 [facility] Comment on above: Order Comment: No: D o not add to previous draw Performed By: #### 1 0070, 28882, 29477, 45745, 21235, 94813 #### [facility] [address] [place] [address], [facility] MCHC (RBC) [Mass/Vol] 31.5 g/dL Low 32.0-35.0 [facility] Comment on above: Order Comment: No: D o not add to previous draw Performed By: #### 1 0070, 00508, 69560, 01144, 98576, 33303 #### [facility] [address] MCV (RBC) [Entitic vol] 87.0 fL Normal 82.0-98.0 [facility] Comment on above: Order Comment: No: D o not add to previous draw Performed By: #### 1 0070, 45742, 92023, 48303, 74274, 38580 #### [facility] [address] [place] [address], [facility] Monocytes (Bld) [#/Vol] 0.3 10*3/uL Normal 0.1-1.0 [facility] Comment on above: Order Comment: No: D o not add to previous draw Performed By: #### 1 0070, 42743, 91505, 00717, 84505, 87695 #### [facility] [address] MONOS 5.5 % Normal 5.0-12.0 [facility] Comment on above: Order Comment: No: D o not add to previous draw Performed By: #### 1 0070, 14593, 20506, 73824, 40867, 54470 #### [facility] [address] Neutrophils/100 WBC (Bld) 72.4 % High 40.0-72.0 [facility] Comment on above: Order Comment: No: D o not add to previous draw Performed By: #### 1 0070, 65928, 44936, 24568, 68446, 39393 #### [facility] [address] Nucleated RBC/100 WBC (Bld) [Ratio] 0 % Normal 0-0 [facility] Comment on above: Order Comment: No: D o not add to previous draw Performed By: #### 1 0070, 66903, 05270, 20615, 80644, 03131 #### [facility] [address] [place] [address], [facility] PLAT CNT 264 10*3/uL Normal 150-400 [facility] Comment on above: Order Comment: No: D o not add to previous draw Performed By: #### 1 0070, 28736, 98239, 49603, 53432, 82631 #### [facility] [address] [place] [address], [facility] RBC (Bld) [#/Vol] 4.93 10*6/uL Normal 3.80-5.00 [facility] Comment on above: Order Comment: No: D o not add to previous draw Performed By: #### 1 0070, 45006, 72540, 58104, 82333, 41600 #### [facility] [address] [place] [address], [facility] WBC (Bld) [#/Vol] 6.17 10*3/uL Normal 4.00-10.60 [facility] Comment on above: Order Comment: No: D o not add to previous draw Performed By: #### 1 0070, 36920, 38688, 91200, 31935, 09898 #### [facility] [address] [place] [address], [facility] MAGNESIUM BLOODon 04-02-2020 Magnesium [Mass/Vol] 2.0 mg/dL Normal 1.9-2.7 [facility] Comment on above: Order Comment: No: D o not add to previous draw Performed By: #### 1 0070, 77212, 82748, 43156, 48848, 19357 #### [facility] [address] [place] [address], [facility] PHOSPHORUS BLOODon 0 Phosphate [Mass/Vol] 3.1 mg/dL Normal 2.5-5.0 [facility] Comment on above: Order Comment: No: D o not add to previous draw Performed By: #### 1 0070, 27740, 57704, 31533, 75421, 02682 #### [facility] [address] [place] [address], [facility] POC GLUCOSE LABon 04-02-2020 Glucose [Mass/Vol] 134 mg/dL High 70-100 [facility] Comment on above: Performed By: #### 1 0070, 25672, 06506, 87116, 53194, 51902 #### [facility] [address] UFH HEPARIN ASSAYon 04-02-20 20 UNFRACTIONATED HEPARIN 0.91 IU/mL Critically high 0.30-0.7 0 [facility] Comment on above: Result Comment: Violet roxaban and Apixaban will interfere with the anti Xa assay used to monitor UFH and LMWH. RESULTS CHECKED AND CALLED. ACCURATELY READ BACK BY LYNN POLANCO RN @ 7772 Performed By: #### 1 0070, 71893, 11913, 00596, 96875, 86559 #### [facility] [address] ALBUMIN BLOODon 04-01-2020 Albumin [Mass/Vol] 3.0 g/dL Low 3.5-5.7 [facility] Comment on above: Performed By: #### 1 0070, 59624, 96941, 36395, 65594, #### [facility] [address] BASIC METABOLIC PANELon Calcium [Mass/Vol] 8.1 mg/dL Low 8.6-10.3 [facility] Comment on above: Order Comment: No: D o not add to previous draw Performed By: #### 1 0070, 62782, 06931, 73532, 57100, 46404 #### [facility] [address] [place] [address], [facility] Chloride [Moles/Vol] 105 mmol/L Normal 98-107 [facility] Comment on above: Order Comment: No: D o not add to previous draw Performed By: #### 1 0070, 43055, 01137, 07422, 22630, 42647 #### [facility] [address] [place] [address], [facility] CO2 [Moles/Vol] 26 mmol/L Normal 21-31 [facility] Comment on above: Order Comment: No: D o not add to previous draw Performed By: #### 1 0070, 06777, 35382, 84015, 91236, 28739 #### [facility] [address] [place] [address], [facility] Creatinine [Mass/Vol] 0.65 mg/dL Normal 0.60-1.20 [facility] Comment on above: Order Comment: No: D o not add to previous draw Performed By: #### 1 0070, 70043, 51872, 13802, 61487, 71913 #### [facility] [address] [place] [address], [facility] GFR/1.73 sq M predicted among blacks MDRD (S/P/Bld) [Vol rate/Area] mL/min/{1.73_m2} Normal >60 [facility] Comment on above: Order Comment: No: D o not add to previous draw Performed By: #### 1 0070, 18057, 75811, 08977, 32118, 94594 #### [facility] [address] [place] [address], [facility] GFR/1.73 sq M predicted among non-blacks MDRD (S/P/Bld) [Vol rate/Area] mL/min/{1.73_m2} Normal >60 [facility] Comment on above: Order Comment: No: D o not add to previous draw Performed By: #### 1 0070, 34462, 53123, 70615, 33457, 05452 #### [facility] [address] [place] [address], [place] Glucose [Mass/Vol] 87 mg/dL Normal 70-100 [facility] Comment on above: Order Comment: No: D o not add to previous draw Performed By: #### 1 0070, 88472, 71828, 19519, 53191, 41097 #### [facility] [address] Potassium [Moles/Vol] 4.3 mmol/L Normal 3.5-5.1 [facility] Comment on above: Order Comment: No: D o not add to previous draw Performed By: #### 1 0070, 16373, 10220, 47184, 11237, 01187 #### [facility] [address] Sodium [Moles/Vol] 136 mmol/L Normal 136-145 [facility] Comment on above: Order Comment: No: D o not add to previous draw Performed By: #### 1 0070, 09316, 35239, 13290, 55346, 81410 #### [facility] [address] Urea nitrogen [Mass/Vol] 8 mg/dL Normal 7-25 [facility] Comment on above: Order Comment: No: D o not add to previous draw Performed By: #### 1 0070, 25180, 26666, 80847, 94203, 16371 #### [facility] [address] CBC W/DIFFon 04-01-2020 ABS BASOPHILS 0.0 10*3/uL Normal 0.0-0.2 [facility] Comment on above: Order Comment: No: D o not add to previous draw Performed By: #### 1 0070, 05480, 63466, 12242, 51567, 80145 #### [facility] [address] [facility]. [address] ABS IMM GRANS 0.0 10*3/uL Normal 0.0-0.2 [facility] Comment on above: Order Comment: No: D o not add to previous draw Performed By: #### 1 0070, 68915, 60652, 32728, 95333, 46397 #### [facility] [address] [place] [address], [facility] ABS NEUTROPHILS 3.4 10*3/uL Normal 1.6-7.6 [facility] Comment on above: Order Comment: No: D o not add to previous draw Performed By: #### 1 0070, 01631, 66370, 16748, 79529, 55837 #### [facility] [address] [place] [address], [facility] Basophils/100 WBC (Bld) 0.2 % Normal 0.0-1.0 [facility] Comment on above: Order Comment: No: D o not add to previous draw Performed By: #### 1 0070, 22548, 66969, 08594, 68451, 71193 #### [facility] [address] [place] [address], [facility] Eosinophils (Bld) [#/Vol] 0.1 10*3/uL Normal 0.0-0.5 [facility] Comment on above: Order Comment: No: D o not add to previous draw Performed By: #### 1 0070, 45483, 53252, 54563, 86119, 30319 #### [facility] [address] [place] [address], [facility] Eosinophils/100 WBC (Bld) 2.6 % Normal 0.0-6.0 [facility] Comment on above: Order Comment: No: D o not add to previous draw Performed By: #### 1 0070, 11478, 24979, 83492, 61889, 71003 #### [facility] [address] [place] [address], [facility] Erythrocyte distribution width (RBC) [Ratio] 13.0 % Normal 11.5-15.0 [facility] Comment on above: Order Comment: No: D o not add to previous draw Performed By: #### 1 0070, 28247, 10644, 09674, 98104, 95729 #### [facility] [address] Hematocrit (Bld) [Volume fraction] 40.9 % Normal 36.0-45.0 [facility] Comment on above: Order Comment: No: D o not add to previous draw Performed By: #### 1 0070, 94934, 31706, 81764, 52503, 83699 #### [facility] [address] [place] [address], [facility] Hemoglobin (Bld) [Mass/Vol] 12.8 g/dL Normal 12.0-15.0 [facility] Comment on above: Order Comment: No: D o not add to previous draw Performed By: #### 1 0070, 83595, 87794, 59587, 27703, 44722 #### [facility] [address] [place] [address], [facility] IMMATURE GRANS 0.6 % Normal 0.0-1.0 [facility] Comment on above: Order Comment: No: D o not add to previous draw Performed By: #### 1 0070, 58062, 94048, 40453, 11827, 62216 #### [facility] [address] [place] [address], [facility] Lymphocytes (Bld) [#/Vol] 1.2 10*3/uL Normal 1.2-4.0 [facility] Comment on above: Order Comment: No: D o not add to previous draw Performed By: #### 1 0070, 93667, 80146, 38258, 42677, 12419 #### [facility] [address] [place] [address], [facility] Lymphocytes/100 WBC (Bld) 23.7 % Normal 20.0-45.0 [facility] Comment on above: Order Comment: No: D o not add to previous draw Performed By: #### 1 0070, 56394, 54379, 76267, 77472, 27819 #### [facility] [address] [place] [address], [facility] MCH (RBC) [Entitic mass] 27.4 pg Normal 27.0-33.0 [facility] Comment on above: Order Comment: No: D o not add to previous draw Performed By: #### 1 0070, 49024, 08781, 50721, 48134, 44225 #### [facility] [address] [place] [address], [facility] MCHC (RBC) [Mass/Vol] 31.3 g/dL Low 32.0-35.0 [facility] Comment on above: Order Comment: No: D o not add to previous draw Performed By: #### 1 0070, 09331, 26350, 04154, 98783, 50610 #### [facility] [address] [place] [address], [facility] MCV (RBC) [Entitic vol] 87.6 fL Normal 82.0-98.0 [facility] Comment on above: Order Comment: No: D o not add to previous draw Performed By: #### 1 0070, 63330, 97666, 00763, 61036, 23092 #### [facility] [address] [place] [address], [facility] Monocytes (Bld) [#/Vol] 0.3 10*3/uL Normal 0.1-1.0 [facility] Comment on above: Order Comment: No: D o not add to previous draw Performed By: #### 1 0070, 43382, 66749, 55587, 94347, 27095 #### [facility] [address] MONOS 5.4 % Normal 5.0-12.0 [facility] Comment on above: Order Comment: No: D o not add to previous draw Performed By: #### 1 0070, 99472, 96463, 62362, 26599, 55172 #### [facility] [address] [place] [address], [facility] Neutrophils/100 WBC (Bld) 67.5 % Normal 40.0-72.0 [facility] Comment on above: Order Comment: No: D o not add to previous draw Performed By: #### 1 0070, 55468, 42847, 37463, 23839, 30564 #### [facility] [address] Nucleated RBC/100 WBC (Bld) [Ratio] 0 % Normal 0-0 [facility] Comment on above: Order Comment: No: D o not add to previous draw Performed By: #### 1 0070, 54902, 91171, 91552, 21059, 58155 #### [facility] [address] [place] [address], [facility] PLAT CNT 237 10*3/uL Normal 150-400 [facility] Comment on above: Order Comment: No: D o not add to previous draw Performed By: #### 1 0070, 38177, 64370, 26166, 96938, 19717 #### [facility] [address] [place] [address], [facility] RBC (Bld) [#/Vol] 4.67 10*6/uL Normal 3.80-5.00 [facility] Comment on above: Order Comment: No: D o not add to previous draw Performed By: #### 1 0070, 73442, 16635, 79078, 34704, 11518 #### [facility] [address] [facility] [place] [address], [facility] WBC (Bld) [#/Vol] 4.98 10*3/uL Normal 4.00-10.60 [facility] Comment on above: Order Comment: No: D o not add to previous draw Performed By: #### 1 0070, 78595, 76057, 60399, 03082, 22138 #### [facility] [address] [place] [address], [facility] CHEST AND LATERALon 04-01-20 CHEST AND LATERAL [facility] Department of Radiology [address] [place] [id number] Patient Name: EMIGDIO ELI : 1965 Sex: F Age: Race: White Pt. Location: [id number] Patient Status: I Ordered Date: 04/01/2020 7:00:00 [...] reports Electronically signed: Shari Salcedo. Transcribed by: [email or web address], User Resident: ANNE VEGA Electronically Signed by: SHARI SALCEDO @ 04/01/2020 10:12 AM I personally read this/these film(s) with this resident Normal [facility] Comment on above: Order Comment: No: D o not add to previous draw MAGNESIUM BLOODon 04-01-2020 Magnesium [Mass/Vol] 2.1 mg/dL Normal 1.9-2.7 [facility] Comment on above: Order Comment: No: D o not add to previous draw Performed By: #### 1 0070, 33337, 67238, 10017, 19656, 76527 #### [facility] [address] [place] [address], [facility] APTTon 03-31-2020 aPTT Coag (Bld) [Time] 28.3 s Normal 25.0-35.0 Th e [facility] Comment on above: Order Comment: No: [...] THIS PURPOSE. Performed By: #### 1 0070, 45315, 62804, 67146, 07331, 12359 #### [facility] [address] [place] [address], [facility] BASIC METABOLIC PANELon 03-04 Calcium [Mass/Vol] 7.8 mg/dL Low 8.6-10.3 [facility] Comment on above: Order Comment: No: D o not add to previous draw Performed By: #### 1 0070, 90034, 11765, 79895, 49883, 65243 #### [facility] [address] [place] [address], [facility] Chloride [Moles/Vol] 108 mmol/L High 98-107 [facility] Comment on above: Order Comment: No: D o not add to previous draw Performed By: #### 1 0070, 76182, 37070, 34452, 92874, 44204 #### [facility] [address] [place] [address], [facility] CO2 [Moles/Vol] 26 mmol/L Normal 21-31 [facility] Comment on above: Order Comment: No: D o not add to previous draw Performed By: #### 1 0070, 63529, 37870, 24270, 16482, 47761 #### [facility] [address] [place] [address], [facility] Creatinine [Mass/Vol] 0.76 mg/dL Normal 0.60-1.20 [facility] Comment on above: Order Comment: No: D o not add to previous draw Performed By: #### 1 0070, 49839, 96426, 64662, 66029, 64174 #### [facility] [address] [place] [address], [facility] GFR/1.73 sq M predicted among blacks MDRD (S/P/Bld) [Vol rate/Area] mL/min/{1.73_m2} Normal >60 [facility] Comment on above: Order Comment: No: D o not add to previous draw Performed By: #### 1 0070, 05293, 51680, 68734, 67206, 34969 #### [facility] [address] [place] [address], [place] GFR/1.73 sq M predicted among non-blacks MDRD (S/P/Bld) [Vol rate/Area] mL/min/{1.73_m2} Normal >60 [facility] Comment on above: Order Comment: No: D o not add to previous draw Performed By: #### 1 0070, 71340, 31107, 28748, 32383, 49073 #### [facility] [address] [place] [address], [facility] Glucose [Mass/Vol] 97 mg/dL Normal 70-100 [facility] Comment on above: Order Comment: No: D o not add to previous draw Performed By: #### 1 0070, 78531, 95222, 24592, 91232, 62885 #### [facility] [address] [place] [address], [facility] Potassium [Moles/Vol] 3.2 mmol/L Low 3.5-5.1 [facility] Comment on above: Order Comment: No: D o not add to previous draw Performed By: #### 1 0070, 03100, 26028, 73764, 49677, 68130 #### [facility] [address] [place] [address], [facility] Sodium [Moles/Vol] 140 mmol/L Normal 136-145 [facility] Comment on above: Order Comment: No: D o not add to previous draw Performed By: #### 1 0070, 00949, 42387, 03582, 05706, 89797 #### [facility] [address] [facility] [place] [address], [facility] Urea nitrogen [Mass/Vol] 15 mg/dL Normal 7-25 [facility] Comment on above: Order Comment: No: D o not add to previous draw Performed By: #### 1 0070, 62917, 00263, 38602, 90924, 88495 #### [facility] [address] [place] [id number], [facility] CBC W/DIFFon 03-31-2020 ABS BASOPHILS 0.0 10*3/uL Normal 0.0-0.2 [facility] Comment on above: Order Comment: No: D o not add to previous draw Performed By: #### 1 0070, 80490, 00210, 47454, 00472, 52954 #### [facility] [address] [place] [address], [facility] ABS IMM GRANS 0.0 10*3/uL Normal 0.0-0.2 [facility] Comment on above: Order Comment: No: D o not add to previous draw Performed By: #### 1 0070, 98534, 65402, 13613, 04464, 48912 #### [facility] [address] [place] [address], [facility] ABS NEUTROPHILS 3.2 10*3/uL Normal 1.6-7.6 [facility] Comment on above: Order Comment: No: D o not add to previous draw Performed By: #### 1 0070, 48146, 95782, 40979, 74403, 55365 #### [facility] [address] [place] [address], [facility] Basophils/100 WBC (Bld) 0.2 % Normal 0.0-1.0 [facility] Comment on above: Order Comment: No: D o not add to previous draw Performed By: #### 1 0070, 67230, 04412, 16063, 68810, 08493 #### [facility] [address] [place] [address], [facility] Eosinophils (Bld) [#/Vol] 0.0 10*3/uL Normal 0.0-0.5 [facility] Comment on above: Order Comment: No: D o not add to previous draw Performed By: #### 1 0070, 84160, 72597, 50713, 18350, 68822 #### [facility] [address] [place] [address], [facility] Eosinophils/100 WBC (Bld) 0.4 % Normal 0.0-6.0 [facility] Comment on above: Order Comment: No: D o not add to previous draw Performed By: #### 1 0070, 89659, 27800, 04296, 64224, 07554 #### [facility] [address] [place] [address], [facility] Erythrocyte distribution width (RBC) [Ratio] 13.0 % Normal 11.5-15.0 [facility] Comment on above: Order Comment: No: D o not add to previous draw Performed By: #### 1 0070, 05097, 20071, 33380, 06911, 27328 #### [facility] [address] [place] [address], [facility] Hematocrit (Bld) [Volume fraction] 34.4 % Low 36.0-45.0 [facility] Comment on above: Order Comment: No: D o not add to previous draw Performed By: #### 1 0070, 02134, 81151, 32156, 68144, 52437 #### [facility] [address] Hemoglobin (Bld) [Mass/Vol] 10.8 g/dL Low 12.0-15.0 [facility] Comment on above: Order Comment: No: D o not add to previous draw Performed By: #### 1 0070, 73455, 59383, 88886, 01308, 52720 #### [facility] [address] IMMATURE GRANS 0.4 % Normal 0.0-1.0 [facility] Comment on above: Order Comment: No: D o not add to previous draw Performed By: #### 1 0070, 46289, 78404, 39058, 96316, 18263 #### [facility] [address] [place] [address], [facility] Lymphocytes (Bld) [#/Vol] 1.2 10*3/uL Normal 1.2-4.0 [facility] Comment on above: Order Comment: No: D o not add to previous draw Performed By: #### 1 0070, 38891, 71076, 31725, 54467, 47667 #### [facility] [address] [place] [address], [facility] Lymphocytes/100 WBC (Bld) 25.7 % Normal 20.0-45.0 [facility] Comment on above: Order Comment: No: D o not add to previous draw Performed By: #### 1 0070, 03638, 29762, 52316, 19059, 52962 #### [facility] [address] [place] [address], [facility] MCH (RBC) [Entitic mass] 27.5 pg Normal 27.0-33.0 [facility] Comment on above: Order Comment: No: D o not add to previous draw Performed By: #### 1 0070, 32071, 01964, 74330, 96127, 09740 #### [facility] [address] [place] [address], [facility] MCHC (RBC) [Mass/Vol] 31.4 g/dL Low 32.0-35.0 [facility] Comment on above: Order Comment: No: D o not add to previous draw Performed By: #### 1 0070, 37882, 08990, 96713, 14388, 30617 #### [facility] [address] [place] [address], [facility] MCV (RBC) [Entitic vol] 87.5 fL Normal 82.0-98.0 [facility] Comment on above: Order Comment: No: D o not add to previous draw Performed By: #### 1 0070, 70343, 67555, 71097, 27871, 45713 #### [facility] [address] [facility] [place] [address], [facility] Monocytes (Bld) [#/Vol] 0.3 10*3/uL Normal 0.1-1.0 [facility] Comment on above: Order Comment: No: D o not add to previous draw Performed By: #### 1 0070, 24127, 98681, 44660, 19934, 66283 #### [facility] [address] [place] [id number], [facility] MONOS 6.2 % Normal 5.0-12.0 [facility] Comment on above: Order Comment: No: D o not add to previous draw Performed By: #### 1 0070, 98584, 56174, 35145, 39250, 85420 #### [facility] [address] [place] [id number], [facility] Neutrophils/100 WBC (Bld) 67.1 % Normal 40.0-72.0 [facility] Comment on above: Order Comment: No: D o not add to previous draw Performed By: #### 1 0070, 35207, 53661, 86606, 10146, 48942 #### [facility] [address] [place] [address], [facility] Nucleated RBC/100 WBC (Bld) [Ratio] 0 % Normal 0-0 [facility] Comment on above: Order Comment: No: D o not add to previous draw Performed By: #### 1 0070, 72665, 22373, 61135, 54128, 61386 #### [facility] [address] [place] [address], [place] PLAT CNT 210 10*3/uL Normal 150-400 [facility] Comment on above: Order Comment: No: D o not add to previous draw Performed By: #### 1 0070, 51892, 53143, 13742, 02761, 75489 #### [facility] [address] [place] [address], [facility] RBC (Bld) [#/Vol] 3.93 10*6/uL Normal 3.80-5.00 [facility] Comment on above: Order Comment: No: D o not add to previous draw Performed By: #### 1 0070, 06851, 35223, 70299, 05364, 02976 #### [facility] [address] [place] [address], [place] WBC (Bld) [#/Vol] 4.71 10*3/uL Normal 4.00-10.60 [facility] Comment on above: Order Comment: No: D o not add to previous draw Performed By: #### 1 0070, [id number], [id number], [id number], [id number], [id number] #### [facility] [address] [facility] [place] [address], [facility] Cardiovascular Lab Reporton 03-31-2020 Cardiovascular Lab Report [facility] Patient Name: Paulie [facility] S MR #: [id number] Department of Physician: Rebecca Weaver M.D. Medicine Service Date: 03/31/2020 Division of Birthdate: 1965 Cardiology Room #: [id number] Adult Cardiovascular Services [facility] [address] [facility] [place] [address] Cardiovascular Laboratory Report INDICATIONS FOR PACEMAKER PLACEMENT: [...] Weaver M.D. Date Trans: 03/31/2020 03:35 P/jamal [id number] cc: Tony Hines M.D. Heart Failure/ Transplant Mailstop [address] [place] [address] Normal [facility] MAGNESIUM BLOODon 03-31-2020 Magnesium [Mass/Vol] 1.8 mg/dL Low 1.9-2.7 [facility] Comment on above: Order Comment: No: D o not add to previous draw Performed By: #### 1 0070, 65464, 66521, 69762, 95464, 57518 #### [facility] [address] [place] [address], [facility] PHOSPHORUS BLOODon 0 Phosphate [Mass/Vol] 2.7 mg/dL Normal 2.5-5.0 The [facility] Comment on above: Order Comment: No: D o not add to previous draw Performed By: #### 1 0070, 49531, 07361, 15036, 82499, 12071 #### [facility] [address] [place] [address], [facility] PROTHROMBIN TIMEon 03-31-202 0 INR Coag (PPP) [Relative time] 1.11 {INR} Normal 0.91-1.16 The [facility] Comment on above: Order Comment: No: [...] CHEST 1995;108:231S-246S. Performed By: #### 1 0070, 53900, 11406, 92387, 49925, 51712 #### [facility] [address] [place] [address], [facility] PT Coag (PPP) [Time] 14.3 s Normal 12.3-14.8 The [facility] Comment on above: Order Comment: No: D o not add to previous draw Result Comment: ALL RESULTS MUST BE INTERPRETED WITH RESPECT TO BLOOD DRAWING ARTIFACT OR DILUTION ERROR OF ANTICOAGULANT AT THE TIME OF SAMPLING. Performed By: #### 1 0070, 51697, 02589, 46848, 49994, 55739 #### [facility] [address] [facility]. [address] *SARS-CoV-2 COVID-19on 03-30 [id number] Not Detected Normal Not Detected [facility] Comment on above: Order Comment: No: D o not add to previous draw Performed By: #### 1 0070, 00848, 41221, 76891, 93845, 42555 #### [facility] [address] [facility]. [address] APTTon 03-30-2020 aPTT Coag (Bld) [Time] 24.9 s Low 25.0-35.0 Th e [facility] Comment on above: Order Comment: No: [...] THIS PURPOSE. Performed By: #### 5 7307, 47548 #### [facility] [address] [facility]. [address] BASIC METABOLIC PANELon 03-03 Calcium [Mass/Vol] 8.9 mg/dL Normal 8.6-10.3 [facility] Comment on above: Order Comment: No: D o not add to previous draw Performed By: #### 1 0070, 28244, 51902, 27057, 89119, 44706 #### [facility] [address] [facility]. [address] Chloride [Moles/Vol] 110 mmol/L High 98-107 [facility] Comment on above: Order Comment: No: D o not add to previous draw Performed By: #### 1 0070, 13570, 79354, 77276, 04298, 78890 #### [facility] [address] [place] [address], [facility] CO2 [Moles/Vol] 26 mmol/L Normal 21-31 [facility] Comment on above: Order Comment: No: D o not add to previous draw Performed By: #### 1 0070, 02623, 75948, 56151, 33086, 62172 #### [facility] [address] [place] [address], [facility] Creatinine [Mass/Vol] 0.86 mg/dL Normal 0.60-1.20 [facility] Comment on above: Order Comment: No: D o not add to previous draw Performed By: #### 1 0070, 80370, 90440, 37281, 01631, 87966 #### [facility] [address] [place] [address], [facility] GFR/1.73 sq M predicted among blacks MDRD (S/P/Bld) [Vol rate/Area] mL/min/{1.73_m2} Normal >60 The [facility] Comment on above: Order Comment: No: D o not add to previous draw Performed By: #### 1 0070, 08300, 02753, 96135, 46938, 88891 #### [facility] [address] [place] [address], [facility] GFR/1.73 sq M predicted among non-blacks MDRD (S/P/Bld) [Vol rate/Area] mL/min/{1.73_m2} Normal >60 [facility] Comment on above: Order Comment: No: D o not add to previous draw Performed By: #### 1 0070, 90456, 58480, 24785, 78952, 53905 #### [facility] [address] [place] [address], [place] Glucose [Mass/Vol] 119 mg/dL High 70-100 [facility] Comment on above: Order Comment: No: D o not add to previous draw Performed By: #### 1 0070, 24452, 55004, 02325, 55793, 80509 #### [facility] [address] [facility] [place] [place] [address], [facility] Potassium [Moles/Vol] 3.5 mmol/L Normal 3.5-5.1 [facility] Comment on above: Order Comment: No: D o not add to previous draw Performed By: #### 1 0070, 78762, 52862, 98585, 72134, 82973 #### [facility] [address] [facility]. [address] Sodium [Moles/Vol] 142 mmol/L Normal 136-145 [facility] Comment on above: Order Comment: No: D o not add to previous draw Performed By: #### 1 0070, 54907, 94972, 75652, 37334, 02952 #### [facility] [address] Urea nitrogen [Mass/Vol] 13 mg/dL Normal 7-25 [facility] Comment on above: Order Comment: No: D o not add to previous draw Performed By: #### 1 0070, 23968, 34967, 91701, 20035, 74842 #### [facility] [address] [facility]. [address] CBC W/DIFFon 03-30-2020 ABS BASOPHILS 0.0 10*3/uL Normal 0.0-0.2 [facility] Comment on above: Performed By: #### 5 0103 #### [facility] [address] [facility] [place] [place] [address], [facility] ABS IMM GRANS 0.0 10*3/uL Normal 0.0-0.2 The [facility] Comment on above: Performed By: #### 5 0103 #### [facility] [address] ABS NEUTROPHILS 5.7 10*3/uL Normal 1.6-7.6 [facility] Comment on above: Performed By: #### 5 0103 #### [facility] [address] Basophils/100 WBC (Bld) 0.0 % Normal 0.0-1.0 [facility] Comment on above: Performed By: #### 5 0103 #### [facility] [address] [place] [address], [facility] Eosinophils (Bld) [#/Vol] 0.0 10*3/uL Normal 0.0-0.5 [facility] Comment on above: Performed By: #### 3 #### [facility] [address] [place] [address], [facility] Eosinophils/100 WBC (Bld) 0.0 % Normal 0.0-6.0 [facility] Comment on above: Performed By: #### 3 #### [facility] [address] Erythrocyte distribution width (RBC) [Ratio] 12.9 % Normal 11.5-15.0 [facility] Comment on above: Performed By: #### 5 3 #### [facility] [address] Hematocrit (Bld) [Volume fraction] 36.1 % Normal 36.0-45.0 [facility] Comment on above: Performed By: #### 5 3 #### [facility] [address] Hemoglobin (Bld) [Mass/Vol] 11.5 g/dL Low 12.0-15.0 [facility] Comment on above: Performed By: #### 5 3 #### [facility] [address] [place] [address], [facility] IMMATURE GRANS 0.5 % Normal 0.0-1.0 [facility] Comment on above: Performed By: #### 5 3 #### [facility] [address] Lymphocytes (Bld) [#/Vol] 0.6 10*3/uL Low 1.2-4.0 [facility] Comment on above: Performed By: #### 5 0103 #### [facility] [address] Lymphocytes/100 WBC (Bld) 9.3 % Low 20.0-45.0 [facility] Comment on above: Performed By: #### 102 #### [facility] [address] MCH (RBC) [Entitic mass] 27.4 pg Normal 27.0-33.0 [facility] Comment on above: Performed By: #### 102 #### [facility] [address] MCHC (RBC) [Mass/Vol] 31.9 g/dL Low 32.0-35.0 [facility] Comment on above: Performed By: #### 5 3 #### [facility] [address] MCV (RBC) [Entitic vol] 86.0 fL Normal 82.0-98.0 [facility] Comment on above: Performed By: #### 5 3 #### [facility] [address] [place] [address], [facility] Monocytes (Bld) [#/Vol] 0.2 10*3/uL Normal 0.1-1.0 [facility] Comment on above: Performed By: #### 5 3 #### [facility] [address] MONOS 2.5 % Low 5.0-12.0 [facility] Comment on above: Performed By: #### 5 3 #### [facility] [address] Neutrophils/100 WBC (Bld) 87.7 % High 40.0-72.0 [facility] Comment on above: Performed By: #### 5 0103 #### [facility] [address] [place] [address], [facility] Nucleated RBC/100 WBC (Bld) [Ratio] 0 % Normal 0-0 [facility] Comment on above: Performed By: #### 5 0103 #### [facility] [address] [place] [address], [facility] PLAT CNT 261 10*3/uL Normal 150-400 [facility] Comment on above: Performed By: #### 5 0103 #### [facility] [address] [place] [address], [facility] RBC (Bld) [#/Vol] 4.20 10*6/uL Normal 3.80-5.00 [facility] Comment on above: Performed By: #### 5 0103 #### [facility] [address] [place] [address], [facility] WBC (Bld) [#/Vol] 6.47 10*3/uL Normal 4.00-10.60 [facility] Comment on above: Performed By: #### 5 0103 #### [facility] [address] FREE T4on 03-30-2020 Free T4 [Mass/Vol] 1.48 ng/dL Normal 0.71-1.85 [facility] Comment on above: Performed By: #### 1 0070, 68401, 83977, 44306, 22532, 07151 #### [facility] [address] [place] [address], [facility] MAGNESIUM BLOODon 03-30-2020 Magnesium [Mass/Vol] 2.0 mg/dL Normal 1.9-2.7 [facility] Comment on above: Order Comment: No: D o not add to previous draw Performed By: #### 1 0070, 40467, 30394, 44883, 57654, 25871 #### [facility] [address] [place] [address], [facility] PHOSPHORUS BLOODon 0 Phosphate [Mass/Vol] 2.8 mg/dL Normal 2.5-5.0 [facility] Comment on above: Order Comment: No: D o not add to previous draw Performed By: #### 1 0070, 90859, 67287, 89279, 89381, 88492 #### [facility] [address] [place] [address], [facility] PROTHROMBIN TIMEon 0 INR Coag (PPP) [Relative time] 1.21 {INR} High 0.91-1.16 [facility] Comment on above: Order Comment: No: [...] CHEST 1995;108:231S-246S. Performed By: #### 5 7307, 25191 #### [facility] [address] [place] [address], [facility] PT Coag (PPP) [Time] 15.4 s High 12.3-14.8 [facility] Comment on above: Order Comment: No: D o not add to previous draw Result Comment: ALL RESULTS MUST BE INTERPRETED WITH RESPECT TO BLOOD DRAWING ARTIFACT OR DILUTION ERROR OF ANTICOAGULANT AT THE TIME OF SAMPLING. Performed By: #### 5 7307, 64973 #### [facility] [address] TROPONIN-Ion 03-30-2020 Troponin I.cardiac [Mass/Vol] 0.02 ng/mL Normal 0.00-0.04 [facility] Comment on above: Order Comment: No: D o not add to previous draw Result Comment: REFE RENCE RANGES: 0.00 - 0.04 ng/ml NORMAL 0.05 - 0.50 ng/ml INDETERMINATE > 0.50 ng/ml CONSISTENT WITH AN M.I. Performed By: #### 1 0070, 30639, 65226, 38120, 55746, 31086 #### [facility] [address] Troponin I.cardiac [Mass/Vol] 0.04 ng/mL Normal 0.00-0.04 [facility] Comment on above: Order Comment: No: D o not add to previous draw Result Comment: REFE RENCE RANGES: 0.00 - 0.04 ng/ml NORMAL 0.05 - 0.50 ng/ml INDETERMINATE > 0.50 ng/ml CONSISTENT WITH AN M.I. Performed By: #### 3 5200 #### [facility] [address] [place] [address], [facility] Troponin I.cardiac [Mass/Vol] 0.04 ng/mL Normal 0.00-0.04 [facility] Comment on above: Order Comment: No: D o not add to previous draw Result Comment: REFE RENCE RANGES: 0.00 - 0.04 ng/ml NORMAL 0.05 - 0.50 ng/ml INDETERMINATE > 0.50 ng/ml CONSISTENT WITH AN M.I. Performed By: #### 1 0070, 20711, 81936, 64766, 49115, 14836 #### [facility] [address] [place] [address], [facility] TSH3 WITH REFLEX FT4on 03-30 TSH 3RD GENERATION 0.02 uIU/mL Low 0.34-5.60 [facility] Comment on above: Performed By: #### 1 0070, 54037, 25853, 61914, 14550, 49723 #### [facility] [address] Vital Signs Date Time Vital Sign Value Performing Clinician Faci lity 06-13-2024 12:130400 Body height 152.3 cm Zoila Monae MD Work Phone: [facility] 06-13-2024 12:13-0400 Body mass index (BMI) [Ratio] 19.98 kg/m2 Zoila Monae MD Work Phone: [facility] 06-13-2024 12:13-0400 Body weight 46.35 kg Zoila Monae MD Work Phone: [facility] 06-13-2024 12:13-0400 Diastolic blood pressure 77 mm[Hg] Zoila Monae MD Work Phone: [facility] 06-13-2024 12:13-0400 Heart rate 74 /min Zoila Monae MD Work Phone: [facility] 06-13-2024 12:13-0400 Systolic blood pressure 107 mm[Hg] Zoila Monae MD Work Phone: [facility] 03-06-2024 13:46-0400 Body height 153.5 cm Zoila Monae MD Work Phone: [facility] 03-06-2024 13:46-0400 Body mass index (BMI) [Ratio] 19.1 kg/m2 Zoila Monae MD Work Phone: [facility] 03-06-2024 13:46-0400 Body temperature 97.2 [degF] Zoila Monae MD Work Phone: [facility] 03-06-2024 13:46-0400 Body weight 45 kg Zoila Monae MD Work Phone: [facility] 03-06-2024 13:46-0400 Diastolic blood pressure 68 mm[Hg] Zoila Monae MD Work Phone: [facility] 03-06-2024 13:46-0400 Heart rate 106 /min Zoila Monae MD Work Phone: [facility] 03-06-2024 13:46-0400 Systolic blood pressure 101 mm[Hg] Zoila Monae MD Work Phone: [facility] 08-12-2022 15:32-0500 Body temperature 98.1 [degF] MD Tony Amaya Work Phone: [facility] 08-12-2022 15:32-0500 Diastolic blood pressure 69 mm[Hg] MD Tony Amaya Work Phone: [facility] 08-12-2022 15:32-0500 Heart rate 78 /min MD Tony Amaya Work Phone: [facility] 08-12-2022 15:32-0500 Respiratory rate 16 /min MD Tony Amaya Work Phone: [facility] 08-12-2022 15:32-0500 SaO2% (BldA) [Mass fraction] 94 % MD Tony Amaya Work Phone: [facility] 08-12-2022 15:32-0500 Systolic blood pressure 129 mm[Hg] MD Tony Amaya Work Phone: [facility] 08-12-2022 11:00-0500 Inhaled oxygen flow rate 3 L/min MD Tony Amaya Work Phone: [facility] 08-11-2022 12:39-0500 Body height 152.4 cm MD Tony Amaya Work Phone: [facility] 08-11-2022 06:00-0500 Body weight 44.9 kg MD Tony Amaya Work Phone: [facility] 08-10-2022 15:03-0500 Body mass index (BMI) [Ratio] 19.1 kg/m2 MD Tony Amaya Work Phone: [facility] 08-03-2022 14:27-0400 Body weight 0 kg MD Tony Amaay Work Phone: [facility] Encounters Encounter Date Encounter Type Care Provider Facility Start: 06-24-2024 End: 06-24-2024 ambulatory LENKA Smith APLING Not Available Start: 06-13-2024 End: 06-13-2024 ambulatory LINCOLNTIFFANY SAEED Facility:[facility] Start: 06-13-2024 End: 06-13-2024 Patient encounter procedure Zoila Monae MD Work Phone: [facility] Comment on above: Transient neurologic al symptoms (Primary Dx) Start: 06-11-2024 ambulatory ZOILA MONAE Facili ty:[facility] Start: 06-11-2024 End: 06-11-2024 Subsequent hospital visit by physician Eeg [facility] Work Phone: [facility] EEG Comment on above: Memory deficit [R41. 3] Start: 06-04-2024 End: 06-04-2024 Orders Only Zoila Monae MD Work Phone: [facility] Comment on above: Memory deficit (Prim isamar Dx); Auditory hallucinations; Mentally challenged Start: 05-28-2024 End: 05-28-2024 ambulatory [facility] Start: 05-15-2024 ambulatory Alejandro Flaherty acility:[facility] Start: 03-06-2024 End: 03-06-2024 ambulatory TONY AMAYA Facility:[facility] Start: 03-06-2024 End: 03-06-2024 Patient encounter procedure Zoila Monae MD Work Phone: [facility] Comment on above: Memory deficit (Prim isamar Dx); Auditory hallucinations; Mentally challenged Start: 02-20-2024 Emergency department patient visit REGAN ALDANA [facility] Start: 02-20-2024 End: 02-20-2024 Emergency department patient visit CASSANDRA ALCANTARA [facility] Start: 02-01-2024 End: 02-01-2024 ambulatory TONY AMAYA [facility] Start: 01-01-2024 Emergency department patient visit GURDEEP KIRKPATRICK [facility] Start: 01-01-2024 End: 01-05-2024 Evaluation and management of inpatient PAM WAY [facility] Start: 10-24-2023 End: 10-24-2023 ambulatory MARI JAMESHIAdolfo [facility] Start: 01-03-2023 End: 01-07-2023 Evaluation and management of inpatient DR TONY AMAYA . Facility:[facility] Start: 11-01-2022 End: 11-02-[address] TONY AMAYA . Facility:[facility] Start: 09-30-2022 End: 10-01-[address] ROSALINA BAUTISTA Facility:[facility] Start: 09-02-2022 End: 09-02-2022 ambulatory MD Tony Amaya Work Phone: [facility] Work Phone: Start: 09-02-2022 End: 09-02-2022 Patient encounter procedure MD Tony Amaya Work Phone: [facility] [place] Start: 08-25-2022 End: 08-25-[address] ROSALINA BAUTISTA Facility:[facility] Start: 08-10-2022 End: 08-12-2022 Admission to same day surgery center MD Tony Amaya Work Phone: [facility] [place] Start: 08-10-2022 End: 08-12-2022 ambulatory MD Tony Amaya Work Phone: [facility] Work Phone: Start: 08-08-2022 End: 08-08-2022 ambulatory MD Tony Amaya Work Phone: [facility] Work Phone: Start: 08-08-2022 End: 08-08-2022 Departed Referred MD Tony Amaya Work Phone: [facility] [place] Start: 08-05-2022 End: 08-05-2022 ambulatory MD Tony Amaya Work Phone: [facility] Work Phone: Start: 08-05-2022 End: 08-05-2022 Patient encounter procedure MD Tony Amaya Work Phone: [facility]Pre[facility]Surgical [facility] Start: 07-30-2022 End: 07-30-[address] ROSALINA BAUTISTA Facility:[facility] Start: 07-04-2022 End: 07-06-[address] TONY AMAYA . Facility:[facility] Start: 07-04-2022 End: 07-04-[address] ALBERTO FERRO Facility:[facility] Start: 06-29-2022 Encounter for preprocedural laboratory examination NADEGE GARDNER . [facility] Start: 06-27-2022 End: 06-28-2022 ambulatory NADEGE GARDNER . Facility:[facility] Start: 06-27-2022 End: 06-28-2022 Encounter for preprocedural laboratory examination NADEGE GARDNER . Facility:[facility] Start: 06-22-2022 End: 06-23-2022 ambulatory NADEGE GARDNER . Facility:[facility] Start: 06-20-2022 End: 06-20-[address] TONY MAAYA . Facility:[facility] Start: 06-20-2022 End: 06-21-2022 ambulatory NADEGE GARDNER . Facility:[facility] Start: 03-03-[address] TONY AMAYA . Facili ty:[facility] Start: 03-02-2022 End: 03-03-[address] TONY AMAYA . Facility:[facility] Start: 01-18-2022 End: 01-21-2022 Evaluation and management of inpatient DR TONY AMAYA . Facility:[facility] Start: 03-30-2020 End: 04-06-2020 Evaluation and management of inpatient EMMY TOLEDO Facility:[facility] Procedures Date Procedure Procedure Detail Performing Clinician Start: 06-11-2024 Electroencephalogram w/rec awake&drowsy Zoila Monae MD Work Phone: Start: 06-11-2024 Electroencephalogram w/rec awake&drowsy Provider [facility] Start: 09-02-2022 Plain chest X-ray MD Tony Amaya Work Phone: Start: 08-12-2022 End: 08-12-2022 Plain chest X-ray MD Toyn Amaya Work Phone: Start: 08-11-2022 Plain chest X-ray MD Tony Amaya Work Phone: Start: 08-10-2022 Acid fast bacilli culture MD Tony Amaya Work Phone: Start: 08-10-2022 Acid fast stain method MD Tony Amaya Work Phone: Start: 08-10-2022 Aerobic microbial culture MD Tony Amaya Work Phone: Start: 08-10-2022 Anaerobic microbial culture MD Tony berry Work Phone: Start: 08-10-2022 Investigation of transfusion reaction MD Tony Amaya Work Phone: Start: 08-10-2022 Mycology culture MD Tony Amaya Work Phone: Start: 08-10-2022 Plain chest X-ray MD Tony Amaya Work Phone: Start: 08-10-2022 Opening of chest MD Tony Amaya Work Phone: Start: 08-05-2022 Urine culture MD Tony Amaya Work Phone: Start: 08-05-2022 Plain chest X-ray MD Tony Amaya Work Phone: Start: 03-31-2020 INSERT PACE. DUAL [...] Start: 02-19-2027 Diabetes Screening Diabetes Screenin g [facility] Start: 06-13-2024 End: 06-13-2024 Patient encounter procedure 06/13/2024 12:30 PM EDT Office Visit Neurology [facility] [address] [place] [address] [place] [address] [place] [address] Return in about 3 months (around 06/06/2024) for with Dr. Monae. Neurology [facility] Comment on above: Return in about 3 mo nths (around 06/06/2024) for with Dr. Monae. Start: 06-11-2024 End: 06-11-2024 Patient encounter procedure 06/11/2024 9:00 AM EDT Appointment [facility] EEG [address] [address] Memory deficit [R41.3] [facility] EEG Comment on above: Memory deficit [R41. 3] Start: 06-02-2024 Covid-19 Vaccine ( season) Covid-19 Vaccine ( season) [facility] Start: 06-02-2024 Influenza vaccination [facility] Start: 03-29-2024 End: 03-29-2024 Patient encounter procedure 03/29/2024 11:45 AM EDT Office Visit Neurology [address] [place] [id number] Memory deficit [R41.3] Neurology Comment on above: Memory deficit [R41. 3] Start: 10-02-2023 Behavioral Health Screening Behavioral Health Screening [facility] Start: 06-02-2023 Covid-19 Vaccine ( season) Covid-19 Vaccine ( season) [facility] Start: 08-12-2022 [facility] Start: 08-10-[address] [facility] Start: 08-10-2022 End: 08-10-2022 [facility] Start: 2014 Shingrix Vaccine (1 of 2) Shingrix Vaccine (1 of 2) [facility] Start: 2009 Lipid panel Lipid Screening [facility] Start: 2009 Screening for malign ant neoplasm of colon [facility] Start: 2004 Screening for malign ant neoplasm of breast Mammogram Screening [facility] Start: 1994 Screening for malign ant neoplasm of cervix HPV Testing [facility] Start: 1985 Screening for malign ant neoplasm of cervix [facility] Start: 1983 Urine microalbumin profile DTaP,Tdap,Td Vaccine (1 - Tdap) [facility] Start: 1982 Anxiety Screening Anxiety Screening [facility] Start: 1982 Depression Screening Depression Scre ening [facility] Start: 1982 Hepatitis C screening Hepatitis C [facility] Start: 1982 HIV screening HIV Screening [facility] Acid Fast Bacilli Culture & Smear Acid Fast Bacilli Culture & Smear [facility] Anaerobic microbial culture Anaerobic Culture [facility] Bacteria identified in Urine by Culture Urine Culture [facility] Chlamydia trachomati s [Presence] in Unspecified specimen by Organism specific culture [facility] Work Phone: Chlamydia trachomati s [Presence] in Unspecified specimen by Organism specific culture [facility] EEG EEG NEUROLOGY 12:00 AM EDT [facility] End: 03-06-2025 EPIL EEG ROUTINE EPIL EEG ROUTINE NEUROLOGY Routine Memory deficit Auditory hallucinations 1 Occurrences starting 03/06/2024 until 03/06/2025 [facility] Work Phone: Comment on above: 1 Occurrences starti ng 03/06/2024 until 03/06/2025 Fungal Culture Result 1 Fungal Culture Re sult [address] [facility] Fungus identified in Unspecified specimen by Culture [facility] Work Phone: Mycobacterium sp identified in Unspecified specimen by Organism specific culture [facility] Work Phone: Mycology Culture Mycology Culture [facility] Patient referral [facility] Work Phone: [facility] Payers Date Payer Category Payer Self-pay 2022 [place] [facility] MEDICAID [id number] 2022-Present [phone] [address] [place] [address] Medicaid [id number] 1965 Unknown [id number] 2.16.840.1.062862.3.579.2.647 1964 Unknown [id number] 2.16.840.1.875268.3.579.2.593 1964 Unknown [id number] 2.16.840.1.450869.3.579.2.593 1964 Unknown [id number] 2.16.840.1.683267.3.579.2.593 1964 Unknown [id number] 2.16.840.1.696150.3.579.2.593 1964 Unknown [id number] 2.16.840.1.710931.3.579.2.593 1964 Unknown [id number] 2.16.840.1.661163.3.579.2.593 1964 Unknown [id number] 2.16.840.1.136613.3.579.2.593 1964 Unknown [id number] 2.16.840.1.494512.3.579.2.593 1964 Unknown [id number] 2.16.840.1.274857.3.579.2.593 1964 Unknown [id number] 2.16.840.1.569706.3.579.2.593 1964 Unknown [id number] 2.16.840.1.608709.3.579.2.593 1964 Unknown [id number] 2.16.840.1.038545.3.579.2.593 1964 Unknown [id number] 2.16.840.1.716578.3.579.2.593 1964 Unknown [id number] 2.16.840.1.708978.3.579.2.593 1964 Unknown [id number] 2.16.840.1.437517.3.579.2.1259 1964 Unknown [id number] 2.16.840.1.176309.3.579.2.1259 1959 Self-pay [id number] 1959 Unknown [id number] Unknown [id number] 2.16.840.1.467286.3.579.2.531 Social History Date Type Detail Facility [facility] Work Phone: Start: 1965 Sex Assigned At Female F [facility] Start: 08-10-2022 [facility] Start: 03-06-2024 Tobacco smoking stat [facility] Tobacco smoking consumption unknown [facility] Start: 03-06-2024 History of Social function [facility] Start: 03-06-2024 Area Deprivation Index [facility] National Score (1-10 0), lower number is lower risk 76 [facility] Start: 1965 Sex Assigned At Not on file [facility] Medical Equipment Procedure Code Equipment Code Equipment Origin al Text Equipment Identifier Dates Thoracotomy Surgical adhesive/sealant, human-derived ()[id number] FDA Start: 08-10-2022 Goals Date Patient Goal Desired Activity /State Functional Status Date Assessment Result Facility 08-12-2022 Functional status Patient at Baseline [facility] Work Phone: Mental Status Date Assessment Result Facility 08-12-2022 Cognitive function Cognitive Sta tus Patient at Baseline [facility] Work Phone: Clinical Notes 08-10-2022 to 06-13-2024 Zoila Monae MD - 06/13/2024 12:30 PM EDTTelephone Encounter - Zoila Monae MD - 06/04/2024 1:21 PM EDTTelephone Encounter - Zoila Monae MD - 06/04/2024 1:21 PM EDT Note Date & Type Note Facility 06-13-2024 History of Present illness Narrative [facility] Follow up/ Established patient visit Individuals who were included in, or assisted with the encounter were: Emigdio Eli Zoila Monae MD Chief Complaint/Issues: Emigdio Eli is a 58 year old female seen in the [facility] for: Staring spells. [...] that she can have it done in [place] but she would rather come here. She [...] which included preparing to see the patient, [id number] patient care, completing clinical documentation, obtaining and/or reviewing separately obtained history, performing a medically appropriate examination, counseling and educating the patient/family/caregiver, ordering medications, tests, or procedures, communicating with other HCPs (not separately reported), and communicating results to the patient/family/caregiver. Zoila Monae MD documented in this encounter [facility] 06-13-2024 Note HNO ID: [id number] Author: ZOILA MONAE MD Service: ? Author Type: Physician Type: Progress Notes Filed: 06/13/2024 13:41 Note Text: [facility] Follow up/ Established patient visit Individuals who were included in, or assisted with the encounter were: Emigdio Eli Zoila Monae MD Chief Complaint/Issues: Emigdio Eli is a 58 year old female seen in the [facility] for: Staring spells. Most Recent Neurological Assessment and Plan: Last Filed Values Date of Most Recent Assessment and Plan 03/06/24 Specialty General Neurology Assessment 1) Episodes of altered mental status: no significant risk other than multiple head injuries and brain seems to be smaller with lot more CSF around the brain, no hydrocephalus. 2) MOCA was but given she has a hx of [...] that she can have it done in [place] but she would rather come here. She [...] 100 mg b (more content not included)... [facility] 06-11-2024 Note HNO ID: [id number] Author: NARCISA YUSUF MD Service: Neurology General Author Type: Physician Type: Procedures Filed: 06/13/2024 13:25 Note Text: [facility] - Electroencephalogram EMIGDIO ELI : 1965 AGE: 58 SEX: F CSN: [id number] HOSP SVC: LOCATION: ATTENDING PHYSICIAN: DATE OF PROCEDURE: 06/11/2024 [...] have been noted. Narcisa Yusuf M.D. Neurology HK:[id number] /[id number] [facility] 06-04-2024 Telephone encounter Note A new neuropsych order has been put in. Thanks Zoila Monae MD [facility] Work Phone: 06-04-2024 Miscellaneous Notes A new neuropsych order has been put in. Thanks Zoila Monae MD documented in this encounter [facility] 06-04-2024 Note HNO ID: [id number] Author: ZOILA MONAE MD Service: ? Author Type: Physician Type: Progress Notes Filed: 06/04/2024 13:22 Note Text: Neuropsychology order had when they tried to get her in. A new order has been put in and good for a year. Zoila Monae MD [facility] 06-04-2024 History of Present illness Narrative Neuropsychology order had when they tried to get her in. A new order has been put in and good for a year. Zoila Monae MD documented in this encounter [facility] 03-06-2024 History of Present illness Narrative Images from the original note were not included. [facility] New Patient Evaluation Consulting Provider: Tony Amaya [address] [address] The patient presents with a chief complaint [...] or assisted with the encounter were: Emigdio Eli Partner: Bozena Monae MD Chief Complaint/Issues: Emigdio Eli is a 58 year old Rh female seen in the [facility] for: Cognitive evaluation [...] and no carotid or cranial bruit auscultated Krebs Cognitive Assessment (MoCA) Version 1 Total Score: 17/30 Visuospatial/Executive Alternating [place] Making: Patient successfully draws the pattern without [...] fabric' (0) Word 3: Required multiple choice- 'zoroastrianism, school, hospital' (0) Word 4: Required category cue- 'type of flower' (0) Word 5: Required category cue- 'a color' (0) Delayed Recall Score: 0/5 Orientation The patient was able to answer correctly: exact date, month, year, exact place (name of hospital, clinic, office). Orientation Score: 4/ Education less than or equal to 12th [...] Abnormal ECG COPD (chronic obstructive pulmonary disease) ([facility]) Hyperlipidemia Past Surgical History: Procedure Laterality Date [...] signed: Karthikeyan Linn. Outside Data/Labs: 01/2024 at [facility]: Tox screen negative, Etoh negative, CBC is normal, CMP is normal, Folate 34, B12 148, TSH 0.01 IMPRESSION: Unremarkable intracranial CT angiogram. Unremarkable unenhanced CT of the brain. Unremarkable extracranial CT angiogram Subjective Patient-Entered Data: 03/04/24 - GENERAL NEUROLOGY SCORES I spent a total of 55 minutes on the date of the service which included preparing to see the patient, sbky-ke-jlch patient care, completing clinical documentation, obtaining and/or reviewing separately obtained history, performing a medically appropriate examination, counseling and educating the patient/family/caregiver, ordering medications, tests, or procedures, communicating with other HCPs (not separately reported), and communicating results to the patient/family/caregiver. Zoila Monae MD documented in this encounter [facility] 03-06-2024 Note HNO ID: [id number] Author: ZOILA MONAE MD Service: ? Author Type: Physician Type: Progress Notes Filed: 03/06/2024 15:39 Note Text: [facility] New Patient Evaluation Consulting Provider: Tony Amaya [address] [facility] [address] The patient presents with a chief complaint [...] or assisted with the encounter were: Emigdio Eli Partner: Bozena Monae MD Chief Complaint/Issues: Emigdio Eli is a 58 year old Rh female seen in the [facility] for: Cognitive evaluation [...] and no carotid or cranial bruit auscultated Krebs Cognitive Assessment (MoCA) Version 1 Total Score: 17/30 Visuospatial/Executive Alternating [place] Making: Patient successfully draws the (more content not included)... 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 SW asked how the information changed so drastically in the last 5 hours. She tried telling this worker that maybe she misunderstood what she was stating since she doesn't have her teeth in. SW advised that she had asked her multiple ways and patient was very clear in her answer earlier as to her mother's status of not working -specifically stating retired and home 24/04. Patient refused to try to leandro her mother while this worker was in the room stating that she would not be available. SW asked about her partner and patient states [...] off. Patient to discharge home this evening. [facility] 01-05-2024 Note Occupational Therapy Occupational Therapy Treatment Patient Name: Emigdio Eli : 1965 Today's Date: 01/05/2024 01/05/24 0852 Time Calculation Start Time 0852 Stop Time 0918 Time Calculation (min) 26 min Problem List Patient Active Problem List Diagnosis Abdominal pain Constipated Dyspepsia COPD (chronic obstructive pulmonary disease) (CMS/HCC) CURRAN (dyspnea on exertion) Pacemaker Hyperlipidemia Dizziness Unspecified severe protein-calorie malnutrition (CMS/HCC) Treatment: 01/05/24 0852 OT Last Visit OT [...] cristina-hygiene and clothing managment w/ setup from junior technical writer Functional Standing Tolerance Time untimed Activity bed<>toilet, [...] Toileting, which includes (more content not included)... [facility] 01-04-2024 Note Hospital Medicine Daily Progress Note - 01/04/2024 1:18 PM; Room: [address] [place], [place] [address] Admission: 01/01/2024 9:17 PM; Length of stay: 0 days THE HOSPITALIST TEAM PREFERS TO USE [employer] CHAT FOR COMMUNICATION 7AM-7PM. IF I DO NOT RESPOND WITHIN 15 MINUTES, PLEASE PAGE ME/CALL THROUGH THE HR SHARED SERVICES CONSULTANT. FROM 7PM-7AM, PLEASE PAGE [phone](COVR) Code Status: Full Code Barriers to Discharge: [...] 1.66 01/02/2024 Lab Results Component Value Date [id number] 148 (L) 01/03/2024 Imaging ECG 12 lead Atrial-paced rhythm Right axis deviation Pulmonary disease pattern Abnormal ECG When compared with ECG of 30-MAR-2020 12:22, Electronic atrial pacemaker has replaced Sinus rhythm Vent. rate has increased BY 26 BPM QRS duration has decreased Nonspecific T wave abn (more content not included)... [facility] 01-03-2024 Note Physical Therapy Mckenzie wright [...] facilitate returning to/exceedi (more content not included)... 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 Last BM and emesis were 4/1 per pt report. 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 Because of these symptoms, her appetite has [...] Orders (From admission, onward) Start Ordered 01/02/24 180 Special Kitchen Request Once Comments: Meatloaf Mac [...] based on: actual body weight Calorie needs: 5368-6624 kcals/day based on Equation: 28-32 kcal/kg MSJ [...] loss, reduced energ (more content not included)... [facility] 01-03-2024 Note Hospital Medicine Daily Progress Note - 01/03/2024 9:20 AM; Room: [address] [place] [address] Admission: 01/01/2024 9:17 PM; Length of stay: 0 days THE HOSPITALIST TEAM PREFERS TO USE [employer] CHAT FOR COMMUNICATION 7AM-7PM. IF I DO NOT RESPOND WITHIN 15 MINUTES, PLEASE PAGE ME/CALL THROUGH THE HR SHARED SERVICES CONSULTANT. FROM 7PM-7AM, PLEASE PAGE [phone](COVR) Code Status: Full Code Barriers to Discharge: [...] 25 mg as needed for dizziness and xtpe-dby-ojjrmoz Tylenol as needed for headaches. -Patient scheduled to follow-up with PCP Dr. Amyaa on 01/03 B12 deficiency - B12 148 [...] 1.66 01/02/2024 Lab Results Component Value Date [id number] 148 (L) 01/03/2024 Imaging ECG 12 lead [...] OT Discharge Recommendations: Home Signed Sara Macdonald [facility] 01/03/2024 9:20 AM [facility] 01-03-2024 Note Occupational Therapy Occupational Therapy [...] this date and pt agreeable. Time In: 806 Time [...] Level of Function Prior Function Level of [place]: Independent with ADLs and functional transfers, Independent [...] Assist/Contact Guard/Supervision) Taking (more content not included)... [facility] 01-02-2024 Note 01/02/24 1201 Admission Assessment [...] Discharge? No Does the patient have a manager case assigned to them through their insurance? No [...] to send link and activate MyChart? 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 She relies on friends or other family members for transportation as no one in the family has their license. Denies financial hardship. Denies further social work needs. [facility] 01-02-2024 Note . Hospital Medicine History and Physical 01/02/2024 12:47 AM THE HOSPITALIST TEAM PREFERS TO USE [employer] FOR COMMUNICATION 7AM-7PM. IF I DO NOT RESPOND WITHIN 15 MINUTES, PLEASE PAGE ME/CALL THROUGH THE HR SHARED SERVICES CONSULTANT. FROM 7PM-7AM, PLEASE PAGE [phone](COVR) Chief Complaint Chief Complaint Patient presents with [...] exertion) 05/03/2023 COPD (chronic obstructive pulmonary disease) ([facility]) Pacemaker Hyperlipidemia Abdominal pain 10/13/2014 Constipated 10/13/2014 [...] T4 -Continued levo (more content not included)... [facility] 10-24-2023 Note [place] Electrophysiology Consult Note Reason for visit: s/p [...] and has not been seen by any hand drawer in since pacemaker placement in 2019 ECG 01/02/23 [...] upstroke, n (more content not included)... [facility] 10-24-2023 Note Patient here for fol low up echo, stress test, and device check. Review of Systems Constitutional: Positive for malaise/fatigue. Cardiovascular: Positive for chest pain and dyspnea on exertion. Respiratory: Positive for cough. Musculoskeletal: Positive for arthritis, back pain and myalgias. All other systems reviewed and are negative. [facility] 08-12-2022 History and physi leandro note Note Date/Time August 04, 2022 3:52pm [facility] [address] [place] [address] Cardiothoracic Surgery H&P Signed Patient: Emigdio Eli MR#: [id number] : 1965 Acct:[id number] Age/Sex: 56 / F Adm Date: 2 Loc: CT Room: Type: PRE SDC Attending Dr: Rodolfo Harley MD Copies to: MD Tony Carrera MD~ Date of Service: 08/08/2022 HPI History of Present Illness History of present illness: Patient is a 56-year-old female with history of recurrent pneumonia and emphysema that presented to Dr. Garnder in early June with complaints of increased [...] bronchus. ?Patient was then seen back in [facility]'s office on 07/11/22. ?Dr. Gardner spoke with [...] IgG IgM and IgA were all negative. Anti-OK-3 antibodies were 5.0. ?P ANCA was 1:80. [...] 2020 in the left chest from a hand drawer in at [facility] patient was unable to [...] patient had normal TSHlevel on 07/04/22 from [facility]. We will give 100 mg of IV Solu-Cortef on-call to the OR. We will utilize vancomycin and Levaquin given the questionable history of penicillin allergy with hives as a baby, although she states she recently had penicillin without issues. Documented By: Rodolfo Harley MD 08/04/22 1223 Signed By: <Electronically signed by MD Rodolfo Harley> 08/12/[address] [facility] Work Phone: 1(799) 644-227511-11-2022 Hospital Discharge instructionsAmbulatory Orders* Initiate Home Health Time Frame: 08/12/22, Location: Determined By Patient Additional Instructions no lifting 5-10 lbs. Continue Peridex mouthwash. May remove dressing tomorrow. Daily showers with Betasept wash. No driving.[facility] Work Phone: 1(633) 155-317411-11-2022 Progress note Author Nathaniel Meza [facility] August 12, 2022 11:59am Note Date/Time August 12, 2022 8:13am [facility] [address] [place] [address] Pulmonology Progress Note Signed Patient: Emigdio Eli MR#: [id number] : 1965 Acct:[id number] Age/Sex: 56 / F Adm Date: 2 Loc: Room: [address] [place] [address] Type: REG SDC Attending Dr: Rodolfo Harley [...] <Electronically signed by MD Nathaniel Meza> 08/12/[address] [facility] Work Phone: 1(382) 367-133811-10-2022 Progress note Author Nathaniel Meza [facility] August 11, 2022 10:07am Note Date/Time August 11, 2022 7:43am [facility] [address] [place] [address] Pulmonology Progress Note Signed Patient: Emigdio Eli MR#: [id number] : 1965 Acct:[id number] Age/Sex: 56 / F Adm Date: 2 Loc: Room: [address] [place] [address] Type: REG SDC Attending Dr: Rodolfo Harley [...] <Electronically signed by MD Nathaniel Meza> 08/11/[address] [place] [address] Work Phone: 1(317) 781-747511-09-2022 Consult note Author Nathaniel Meza [facility] August 10, 2022 5:46pm Note Date/Time August 10, 2022 5 :41pm [facility] [address] [place] [address] Pulmonology Consult Note Signed Patient: Emigdio Eli MR#: [id number] : 1965 Acct:[id number] Age/Sex: 56 / F Adm Date: 2 Loc: Room: [address] [place] [address] Type: REG SDC Attending Dr: Rodolfo Harley [...] been followed by Dr. Nadege Gardner at [facility] with complaints of dyspnea on exertion as [...] able. Documented By: Nathaniel Meza MD 2 1734 Signed By: <Electronically signed by MD Nathaniel Meza> 08/10/[address] [facility] Work Phone: evaluation noteNo assessment information available [facility] Work Phone: evaluation note* Diagnosis Onset Date Resolution Status Bipolar 1 disorder acute Bronchiectasis acute Hypercholesteremia acute Hypothyroidism acute Interstitial lung disease ac [facility] Work Phone: Evaluation note* Diagnosis Onset Date Resolution Status Bipolar 1 disorder acute Hypercholesteremia acute Hypothyroidism acute Interstitial lung disease [facility] Bipolar 1 disorder acute Bronchiectasis acute Hypercholesteremia acute Hypothyroidism acute Interstitial lung disease [facility] Work Phone: evalubhcal note* Diagnosis Memory deficit- Primary Memory loss Auditory hallucinations Hallucinations Mentally challenged Unspecified intellectual disabilities [facility] Diagnosis Memory deficit- Primary Memory loss Auditory hallucinations Hallucinations Mentally challenged Unspecified intellectual disabilities documented in this encounter [facility] note* Diagnosis Memory deficit Memory loss Auditory hallucinations Hallucinations documented [facility] this encounter [facility] Diagnosis Transient neurological symptoms- Primary documented in this encounter [facility] for referral (narrative)* Outpatient Procedure (Routine) - Authorized Specialty Diagnoses / Procedures Referred By Contac t Referred To Contact [facility] Diagnoses Memory deficit Auditory hallucinations Procedures EPIL EEG ROUTINE ELECTROENCEPHALOGRAM REC COMA/[place] [address] [place] [address] [address] Referral ID Status Reason Start Date Expiration Date Visits Requested Visits Authorized [id number] Authorized Auto-Generat ed Referral 03/06/2024 03/06/2025 1 [...] EA ADDL 30 [place] [address] [id number] Referral ID Status Reason Start Date Expiration Date Visits Requested Visits Authorized [id number] Ref Not Required PCP Requested Referral 03/06/2024 06/04/2024 1 3 [facility] for referral (narrative)* Outpatient Procedure (Routine) - Closed Specialty Diagnoses / Procedures Referred By Contac t Referred To Contact [facility] Diagnoses Memory deficit Auditory hallucinations Procedures EPIL EEG ROUTINE ELECTROENCEPHALOGRAM REC COMA/[place] [address] [place] [address] [address] Referral ID Status Reason Start Date Expiration Date V isits Requested Visits Authorized [id number] Closed Auto-Generate d Referral 03/06/2024 03/06/2025 1 1 [facility] for visit Narrative* Outpatient Procedure (Routine) - Closed Specialty Diagnoses / Procedures Referred By Contac t Referred To Contact [facility] Diagnoses Memory deficit Auditory hallucinations Procedures EPIL EEG ROUTINE ELECTROENCEPHALOGRAM REC COMA/[place] [address] [place] [address] Neurological [address] [place] [address] Referral ID Status Reason Start Date Expiration Date V isits Requested Visits Authorized [id number] Closed Auto-Generate d Referral 03/06/2024 03/06/2025 1 1 [facility] Summary Purpose Family History No Family History Records FoundNo Family History Records FoundNo Family History Records FoundNo Family History Records FoundNo Family History Records FoundNo Family History Records FoundNo Family History Records Found Advance Directives No Advanced Directives Records Found Advance Directive Response Recorded Date/ Time Advance Directives No August 05, 2022 8:18am Hospital Course Note MR#: [id number] I [facility] Pt. Name: Emigdio Eli Admitted: 03/30/2020 Discharged: [...] Specialty Diagnoses / Procedures Referred By Chris t Referred To Contact Diagnoses Memory deficit Auditory hallucinations Procedures NEUROPSYCHOLOGICAL TESTING CONSULT NEUROBEHAVIORAL STATUS XM PHYS/QHP 1ST HOUR NEUROPSYCHOLOGICAL TST EVAL PHYS/QHP 1ST HOUR NEUROPSYCHOLOGICAL TST EVAL PHYS/QHP EA ADDL HR PSYCL/NRPSYCL TST TECH 2+ TST 1ST 30 MIN PSYCL/NRPSYCL TST TECH 2+ TST EA ADDL [place] [address] [place] [address] Referral ID Status Reason Start Date Expiration Date Visits Requested Visits Authorized [id number] Ref Not Required PCP Requested Referral 06/04/2024 09/02/2024 1 3 Additional Source Comments INFORMATION SOURCE (unrecogn ized section and content) DATE CREATED AUTHOR 04/23/2020 [facility] DATE CREATED AUTHOR AUTHOR'S ORGANIZ ATION 01/07/2023 [facility] DATE CREATED AUTHOR AUTHOR'S ORGANIZ ATION 05/24/2024 [facility] DATE CREATED AUTHOR AUTHOR'S ORGANIZ ATION 05/30/2024 [facility] DATE CREATED AUTHOR AUTHOR'S ORGANIZ ATION 06/15/[address] [facility] DATE CREATED AUTHOR AUTHOR'S ORGANIZ ATION 06/15/2024 [facility] DATE CREATED AUTHOR AUTHOR'S ORGANIZ ATION 06/25/2024 [facility] EPIC Care Teams (unrecognized sec tion and content) [...] MD Attending Provider Active Allyssa Washburn APRN ACNP-BC Other Provider Active Jonah Badillo MD Other Provider Active Nathaniel Meza MD Other Provider Active Daiana Whitehead MD Other Provider Active Edgardo Barney Hickey , DO Other Provider Active Stacey Cuevas MD Other Provider Active Beau Jones MD Other Provider Active Darryl Lambert MD Other Provider Active Giorgi Phillips , DO Other Provider Active Team Status: Inactive Member Role Status Dates Tony Amaya MD Primary Care Provider Active Rodolfo Harley MD Attending Provider Active Family Resource Specialist Relationship Specialty Start Date End Date Tony Amaya MD [address] [id number] Referring Family Medicine 02/09/24 Family Resource Specialist Relationship Specialty Start Date End Date Tony Amaya MD [address] [place] [address] Referring Family Medicine 02/09/24 Family Resource Specialist Relationship Specialty Start Date End Date Tony Amaya MD [address] [id number] Referring Family Medicine 02/09/24 Family Resource Specialist Relationship Specialty Start Date End Date Tony Amaya MD [address] [place] [address] Referring Family Medicine 02/09/24 Family Resource Specialist Relationship Specialty Start Date End Date Tony Amaya MD [address] [id number] PCP - General Family Medicine 06/13/24 Tony Amaya MD [address] [place] [address] Referring Family Medicine 02/09/24 Goals (unrecognized section [...] or prosecute any alcohol or drug abuse patient.[facility] Hospital[facility] the event this information is protected by the Federal Confidentiality of Alcohol and Drug Abuse Patient Records regulations: The Federal rules restrict any use of the information to criminally investigate or prosecute any alcohol or drug abuse patient.[facility] Hospital[facility] the event this information is protected by the Federal Confidentiality of Alcohol and Drug Abuse Patient Records regulations: The Federal rules restrict any use of the information to criminally investigate or prosecute any alcohol or drug abuse patient.[facility] the event this information is protected by the Federal Confidentiality of Alcohol and Drug Abuse Patient Records regulations: The Federal rules restrict any use of the information to criminally investigate or prosecute any alcohol or drug abuse patient.[facility] the event this information is protected by the Federal Confidentiality of Alcohol and Drug Abuse Patient Records regulations: The Federal rules restrict any use of the information to criminally investigate or prosecute any alcohol or drug abuse patient.[facility] Reason for Visit (unrecogniz ed section [...] BE BASED ON THE PRIMARY CLINICAL RECORDS. [employer] [facility]. provides no warranty or guarantee of the accuracy or completeness of information in this document.
[2024-06-27 13:36] LABS: Thyroid Stimulating Hormone 0.194 uIU/mL (0.358-3.740)
[2024-06-27 13:57] LABS: Free T4 1.18 ng/dL (0.76-1.46)
[2024-06-28 08:12] LABS: Vitamin B12 289 pg/mL (232-1245)
== END 2024-06-27 11:35 | disposition home or self-care (01) ==
LOC: LAB 11:35
PROVIDERS: PCP Family Medicine; Visit Provider Family Medicine
DX: E03.9 Hypothyroidism, unspecified (principal); E55.9 Vitamin D deficiency, unspecified
CPT/HCPCS: 36415; 82306; 82607; 82746; 84439; 84443

== ENCOUNTER 2024-07-05 09:47 | Outpatient (OUT) | payer OTHER, SELFPAY ==
--- NOTE | 2024-07-05 09:58 | CT_ITS ---
The [address] [address] Patient Name: EMIGDIO ELI MRN: [id number] date: 1965 Sex: F Assigned Patient Location: CT Current Patient Location: CT Accession/Order Number: [id number] Exam Date: 07/05/2024 09:54 Report Date: 07/05/2024 15:44 At the request of: TONY AMAYA Procedure: CT knee RT wo con EXAMINATION: CT knee RT wo con HISTORY: Patellar Fracture S82.009A COMPARISON: No relevant comparison available. TECHNIQUE: Multi-planar CT images were created without and/or with IV contrast according to examination type. Dose reduction techniques were achieved by using automated exposure control and/or adjustment of mA and/or kV according to patient size and/or use of iterative reconstruction technique. FINDINGS: BONES: Nondisplaced vertical fracture extending cephalad-caudad through the inferior pole of the patella involving the distal one third. SOFT TISSUES: Soft tissue swelling/edema anterior to the knee. EFFUSION: Small joint effusion. OTHER: Negative. CT/CT knee RT wo con IMPRESSION: 1. Nondisplaced fracture involving inferior pole of patella. 2. Small joint effusion. 3. Anterior soft tissue thickening; subcutaneous edema versus prepatellar bursitis. Electronically authenticated by: DENIZ KRAFT Date: 07/05/2024 15:44
--- OUTSIDE RECORDS SUMMARY | 2024-07-05 10:05 | XMS_ITS | CCD ---
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 [address] Hematocrit (Bld) [Volume fraction] 44.0 % Normal 36.0-48.0 [facility] Comment on above: Performed By: #### L [id number] #### [facility] [address] [address] Hemoglobin (Bld) [Mass/Vol] 13.9 g/dL Normal 12.0-15.0 [facility] Comment on above: Performed By: #### L [id number] #### [facility] [address] [address] MCH (RBC) [Entitic mass] 29.0 pg Normal 27.0-33.0 [facility] Comment on above: Performed By: #### L [id number] #### [facility] [address] [place] [address] MCV (RBC) [Entitic vol] 91.9 fL Normal 82.0-98.0 [facility] Comment on above: Performed By: #### L [id number] #### [facility] ([facility]) [address] [place] [address] PLATELETS (10*3/UL) IN BLOOD AUTOMATED COUNT 201 10*3/uL Normal 150-400 [facility] Comment on above: Performed By: #### L [id number] #### [facility] ([facility]) [address] [place] [address] RBC (Bld) [#/Vol] 4.79 10*6/uL Normal 3.80-5.00 [facility] Comment on above: Performed By: #### L [id number] #### [facility] ([facility]) [address] [place] [address] WBC (Bld) [#/Vol] 3.38 10*3/uL Low 4.00-10.60 [facility] Comment on above: Performed By: #### L [id number] #### [facility] ([facility]) [address] [place] [address] CONSULTon 01-02-2024 CONSULT Reason For Consult consatnt [...] by Dr. Tony Amaya on 12/29/2023 in [place] due to this persistent dizziness. She was [...] -- 73 -- 96 % -- -- 01/01/245 116/76 -- -- 74 -- -- -- [...] intact. Crani (more content not included)... Normal [facility] EDPROVon 01-02-2024 EDPROV HPI Chief Complaint [...] Triage Vitals Temp Heart Rate Resp BP 01/01/246 01/01/24 18501/01/24 18501/01/24 185 36.9 ???C (98.4 ???F) 80 16 147/78 SpO2 Temp Source Heart Rate Source Patient Position 01/01/24185201/01/24 18501/01/24 18501/01/241852 91 % Oral Monitor Sitting BP Location FiO2 (%) 01/01/241852 -- Left arm Physical Exam Procedures Labs Reviewed URINALYSIS WITH REFLEX CULTURE - Abnormal Result Value Color, Urine Straw (*) Clarity, Urine Clear pH, Urine 6.0 Leukocytes, Urine Negative Nitrite, Urine Negative Protein, Urine Negative Glucose, Urine Negative Bilirubin, Urine Negative Specific [place], Urine 1.041 (*) Ketones, Urine Trace (*) [...] Procedure Abnormality Status --------- ------ CBC auto differential[[id number]] Abnormal Final result Please view results for [...] MDM ED Course as of 01/02/24 2309 Mon Jan 01, 2024 2134 Per cardiology note 10/24/23: Stress test 09/2023 was negative for ischemia TTE 09/06/23 normal LVEF 60%, mildly elevated RVSP, mild TR [JS] 2300 Pt was signed out to ED attending (Dr Bautista) at shift change. All labs (except CBC) and imaging (except CXR) pending. Pt will likely need admi (more content not included)... Normal [facility] T4, FREEon 01-02-2024 THYROXINE (T4) FREE (NG/DL) IN SER/PLAS 1.66 ng/dL Normal 0.71-1.85 [facility] Comment on above: Performed By: #### L [id number] ####[facility] LAB (BEAKER)[address] [place] [address] TSH3 REFLEX TO FT4on 024 THYROTROPIN (MIU/L) IN SER/PLAS BY DETECTION LIMIT <= 0.05 MIU/L 0.01 mIU/L Low 0.34-5.60 [facility] Comment on above: Performed By: #### L [id number] #### [facility] (BEAKER) [address] [place] [address] CBC WITH AUTO DIFFERENTIALon 01-01-2024 Basophils (Bld) [#/Vol] 0.02 10*3/uL Normal 0.00-0.20 [facility] Comment on above: Performed By: #### L [id number] #### [facility] (BEAKER) [address] [place] [address] Basophils/100 WBC (Bld) 0.6 % Normal 0.0-1.0 [facility] Comment on above: Performed By: #### L [id number] #### [facility] (BEAKER) [address] [place] [address] Eosinophils (Bld) [#/Vol] 0.09 10*3/uL Normal 0.00-0.50 [facility] Comment on above: Performed By: #### L [id number] #### [facility] [address] [place] [address] Eosinophils/100 WBC (Bld) 2.6 % Normal 0.0-6.0 [facility] Comment on above: Performed By: #### L [id number] #### [facility] ([facility]) [address] [place] [address] Erythrocyte distribution width (RBC) [Ratio] 13.6 % Normal 11.5-15.0 [facility] Comment on above: Performed By: #### L [id number] #### [facility] (BEAKER) [address] [place] [address] ERYTHROCYTE MEAN CORPUSCULAR HEMOGLOBIN CONCENTRATION (G/DL) BY AUTOMATED 33.9 g/dL Normal 32.0-35.0 [facility] Comment on above: Performed By: #### L [id number] #### [facility] (BEAKER) [address] [place] [address] Hematocrit (Bld) [Volume fraction] 42.2 % Normal 36.0-48.0 [facility] Comment on above: Performed By: #### L [id number] #### [facility] (BEAKER) [address] [place] [address] Hemoglobin (Bld) [Mass/Vol] 14.3 g/dL Normal 12.0-15.0 [facility] Comment on above: Performed By: #### L [id number] #### [facility] (BEAKER) [address] [place] [address] Immature granulocytes (Bld) [#/Vol] 0.02 10*3/uL Normal 0.00-0.20 [facility] Comment on above: Performed By: #### L [id number] #### [facility] (BEAKER) [address] [place] [address] Immature granulocytes/100 WBC (Bld) 0.6 % Normal 0.0-1.0 [facility] Comment on above: Performed By: #### L [id number] #### [facility] (BEAKER) [address] [place] [address] Lymphocytes (Bld) [#/Vol] 1.11 10*3/uL Low 1.20-4.00 [facility] Comment on above: Performed By: #### L [id number] #### [facility] [address] [place] [address] Lymphocytes/100 WBC (Bld) 32.1 % Normal 20.0-45.0 [facility] Comment on above: Performed By: #### L [id number] #### [facility] (BEAKER) [address] [facility] [place] [address] MCH (RBC) [Entitic mass] 29.0 pg Normal 27.0-33.0 [facility] Comment on above: Performed By: #### L [id number] #### [facility] (BEAKER) [address] [address] MCV (RBC) [Entitic vol] 85.6 fL Normal 82.0-98.0 [facility] Comment on above: Performed By: #### L [id number] #### [facility] (BEAKER) [address] [address] Monocytes (Bld) [#/Vol] 0.28 10*3/uL Normal 0.10-1.00 [facility] Comment on above: Performed By: #### L [id number] #### [facility] ([facility]) [address] [place] [address] Monocytes/100 WBC (Bld) 8.1 % Normal 5.0-12.0 [facility] Comment on above: Performed By: #### L [id number] #### [facility] ([facility]) [address] [place] [address] Neutrophils (Bld) [#/Vol] 1.94 10*3/uL Normal 1.60-7.60 [facility] Comment on above: Performed By: #### L [id number] #### [facility] ([facility]) [address] [place] [address] Neutrophils/100 WBC (Bld) 56.0 % Normal 40.0-72.0 [facility] Comment on above: Performed By: #### L [id number] #### [facility] ([facility]) [address] [place] [address] NRBC (PER 100 WBCS) BY AUTOMATED COUNT 0.0 % Normal 0 [facility] Comment on above: Performed By: #### L [id number] #### [facility] ([facility]) [address] [place] [address] PLATELETS (10*3/UL) IN BLOOD AUTOMATED COUNT 222 10*3/uL Normal 150-400 [facility] Comment on above: Performed By: #### L [id number] #### [facility] ([facility]) [address] [place] [address] RBC (Bld) [#/Vol] 4.93 10*6/uL Normal 3.80-5.00 [facility] Comment on above: Performed By: #### L [id number] #### [facility] ([facility]) [address] [place] [address] WBC (Bld) [#/Vol] 3.46 10*3/uL Low 4.00-10.60 [facility] Comment on above: Performed By: #### L [id number] #### [facility] [address] [place] [address] COMPREHENSIVE METABOLIC PANE Balwinder 01-01-2024 Albumin [Mass/Vol] 4.1 g/dL Normal 3.5-5.7 [facility] Comment on above: Performed By: #### L [id number] #### [facility] ([facility]) [address] [place] [address] ALP [Catalytic activity/Vol] 81 U/L Normal 34-104 [facility] Comment on above: Performed By: #### L [id number] #### [facility] ([facility]) [address] [place] [address] ALT [Catalytic activity/Vol] 10 U/L Normal 7-52 [facility] Comment on above: Performed By: #### L [id number] #### [facility] ([facility]) [address] [place] [address] Anion gap [Moles/Vol] 14 mmol/L Normal 7-20 [facility] Comment on above: Performed By: #### L [id number] #### [facility] ([facility]) [address] [place] [address] AST [Catalytic activity/Vol] 20 U/L Normal 13-39 [facility] Comment on above: Performed By: #### L [id number] #### [facility] ([facility]) [address] [place] [address] Bilirubin [Mass/Vol] 0.5 mg/dL Normal 0.3-1.0 [facility] Comment on above: Performed By: #### L [id number] #### [facility] [address] [place] [address] Calcium [Mass/Vol] 9.6 mg/dL Normal 8.6-10.3 [facility] Comment on above: Performed By: #### L [id number] #### [facility] [address] [place] [address] Chloride [Moles/Vol] 106 mmol/L Normal 98-107 [facility] Comment on above: Performed By: #### L [id number] #### [facility] ([facility]) [address] [place] [address] CO2 [Moles/Vol] 24 mmol/L Normal 21-31 [facility] Comment on above: Performed By: #### L [id number] #### [facility] ([facility]) [address] [place] [address] Creatinine [Mass/Vol] 0.82 mg/dL Normal 0.60-1.20 [facility] Comment on above: Performed By: #### L [id number] #### [facility] ([facility]) [address] [place] [address] GLOMERULAR FILTRATION RATE ML/MIN/1.73 SQ M.PREDICTED 82.3 mL/min/1.73m*2 Normal >60.0 [facility] Comment on above: Result Comment: [facility]???s estimated glomerular filtration rate (eGFR) will [...] group of individuals. Performed By: #### L [id number] #### [facility] ([facility]) [address] [place] [address] Glucose [Mass/Vol] 86 mg/dL Normal 70-100 [facility] Comment on above: Performed By: #### L [id number] #### [facility] [address] [place] [address] Potassium [Moles/Vol] 3.8 mmol/L Normal 3.5-5.1 [facility] Comment on above: Performed By: #### L [id number] #### [facility] ([facility]) [address] [place] [address] Protein [Mass/Vol] 6.7 g/dL Normal 6.0-8.3 [facility] Comment on above: Performed By: #### L [id number] #### [facility] ([facility]) [address] [place] [address] Sodium [Moles/Vol] 140 mmol/L Normal 136-145 [facility] Comment on above: Performed By: #### L [id number] #### [facility] ([facility]) [address] [place] [address] Urea nitrogen [Mass/Vol] 10 mg/dL Normal 7-25 [facility] Comment on above: Performed By: #### L [id number] #### [facility] ([facility]) [address] [place] [address] UREA NITROGEN/CREATININE (MASS RATIO) IN SER/PLAS 12.2 Normal [facility] Comment on above: Performed By: #### L [id number] #### [facility] ([facility]) [address] [place] [address] CT ABDOMEN PELVIS W IV CONTR Marquita [...] liver function test evaluation. Electronically signed: Shari Pierce Not Vldtd Invalid Interpretation Code [facility] CT HEAD WO IV CONTRASTon CT [...] Shari Mahoney. Not Vldtd Invalid Interpretation Code [facility] CTA HEAD W IV CONTRASTon CTA [...] Shari Mahoney. Not Vldtd Invalid Interpretation Code [facility] CTA NECK W IV CONTRASTon CTA [...] Shari Mahoney. Yue Vldtd Invalid Interpretation Code [facility] EDNURSon 01-01-2024 EDNURS Pt arrives with avani maldonado to triage, states that pt has been seen at [place] [facility] multiple times for increased dizziness, vomiting, and diarrhea for the past 2 weeks. Pt states that she is suppose to get an MRI of her brain done at [facility] but has not scheduled it yet. Reports multiple falls d/t dizziness. Normal [facility] EDPROVon 01-01-2024 EDPROV [facility] [address] [facility] [address] EMERGENCY DEPARTMENT ENCOUNTER 01/01/2024 CHIEF COMPLAINT Chief [...] ECG, COPD (chronic obstructive pulmonary disease) ([facility]), and Hyperlipidemia. SURGICAL HISTORY has a [...] Motor functio (more content not included)... Normal [facility] ETHANOLon 01-01-2024 ETHANOL (MG/DL) IN SER/PLAS <10 Normal [facility] Comment on above: Performed By: #### L [id number] ####[facility] ([facility])[address] [place] [address] ETHANOL CALCULATED (%) Normal [facility] Comment on above: Performed By: #### L [id number] ####[facility] ([facility])[address] [place] [address] LACTIC ACID WITH 4 HOUR REFL EXon 01-01-2024 LACTATE (MMOL/L) IN SER/PLAS 0.8 mmol/L Normal 0.5-2.2 [facility] Comment on above: Performed By: #### L [id number] #### [facility] ([facility]) [address] [place] [address] LIPASEon 01-01-2024 LIPASE (U/L) IN SER/PLAS 47 U/L Normal 11-82 [facility] Comment on above: Performed By: #### L [id number] #### [facility] ([facility]) [address] [place] [address] MAGNESIUMon 01-01-2024 Magnesium [Mass/Vol] 2.1 mg/dL Normal 1.9-2.7 [facility] Comment on above: Performed By: #### L [id number] #### [facility] ([facility]) [address] [place] [address] T4, FREEon 01-01-2024 THYROXINE (T4) FREE (NG/DL) IN SER/PLAS 1.44 ng/dL Normal 0.71-1.85 [facility] Comment on above: Performed By: #### L [id number] ####[facility] ([facility] [place] [address] TOXICOLOGY PANEL URINEon AMPHETAMINE+METHAMPHET AMINE SCREEN (PRESENCE) IN URINE Negative Normal Negative [facility] Comment on above: Performed By: #### L [id number] #### [facility] [address] [place] [address] BARBITURATES PRESENCE IN URINE BY SCREEN METHOD Negative Normal Negative [facility] Comment on above: Performed By: #### L [id number] #### [facility] [address] [place] [address] Benzodiazepines Ql (U) Negative Normal Negative [facility] Comment on above: Performed By: #### L [id number] #### [facility] ([facility]) [address] [place] [address] CANNABINOID (PRESENCE) IN URINE BY SCREEN METHOD Negative Normal Negative [facility] Comment on above: Performed By: #### L [id number] #### [facility] [address] [place] [address] Cocaine Ql (U) Negative Normal Negative [facility] Comment on above: Performed By: #### L [id number] #### [facility] ([facility]) [address] [place] [address] METHADONE (PRESENCE) IN URINE BY SCREEN METHOD Negative Normal Negative [facility] Comment on above: Performed By: #### L [id number] #### [facility] [address] [place] [address] OPIATES (PRESENCE) IN URINE BY SCREEN METHOD Negative Normal Negative [facility] Comment on above: Performed By: #### L [id number] #### [facility] ([facility]) [address] [place] [address] PHENCYCLIDINE PRESENCE IN URINE BY SCREEN METHOD Negative Normal Negative [facility] Comment on above: Performed By: #### L [id number] #### [facility] ([facility]) [address] [place] [place] [address] Propoxyphene Screen Ql (U) Negative Normal Negative [facility] Comment on above: Performed By: #### L [id number] #### [facility] ([facility]) [address] [place] [address] TRICYCLIC ANTIDEPRESSANTS (PRESENCE) IN URINE Negative Normal Negative [facility] Comment on above: Performed By: #### L [id number] #### [facility] ([facility]) [address] [place] [address] TROPONIN Ion 01-01-2024 Troponin I.cardiac [Mass/Vol] 0.00 ng/mL Normal 0.00-0.04 [facility] Comment on above: Performed By: #### L [id number] ####[facility] ([facility])[address] [place] [address] TSH3 REFLEX TO FT4on 024 THYROTROPIN (MIU/L) IN SER/PLAS BY DETECTION LIMIT <= 0.05 MIU/L 0.02 mIU/L Low 0.34-5.60 [facility] Comment on above: Performed By: #### L [id number] #### [facility] ([facility]) [address] [place] [address] URINALYSIS WITH REFLEX CULTU REon 01-01-2024 BILIRUBIN, TOTAL PRESENCE IN URINE Negative Normal Negative [facility] Comment on above: Order Comment: Micro scopics not performed on urines with negative chemical reactions unless requested on original order. Performed By: #### L [id number] #### [facility] ([facility]) [address] [place] [address] Clarity (U) Clear Normal Clear [facility] Comment on above: Order Comment: Micro scopics not performed on urines with negative chemical reactions unless requested on original order. Performed By: #### L [id number] #### [facility] ([facility]) [address] [place] [address] Color (U) Straw Abnormal Yellow [facility] Comment on above: Order Comment: Micro scopics not performed on urines with negative chemical reactions unless requested on original order. Performed By: #### L [id number] #### [facility] ([facility]) [address] [place] [address] Glucose (U) [Mass/Vol] Negative Normal Negative [facility] Comment on above: Order Comment: Micro scopics not performed on urines with negative chemical reactions unless requested on original order. Performed By: #### L [id number] #### [facility] ([facility]) [address] [place] [address] HEMOGLOBIN PRESENCE IN URINE Negative Normal Negative [facility] Comment on above: Order Comment: Micro scopics not performed on urines with negative chemical reactions unless requested on original order. Performed By: #### L [id number] #### [facility] ([facility]) [address] [place] [address] Ketones Ql (U) Trace Abnormal Negative [facility] Comment on above: Order Comment: Micro scopics not performed on urines with negative chemical reactions unless requested on original order. Performed By: #### L [id number] #### [facility] ([facility]) [address] [place] [address] LEUKOCYTE ESTERASE PRESENCE IN URINE BY TEST STRIP Negative Normal Negative [facility] Comment on above: Order Comment: Micro scopics not performed on urines with negative chemical reactions unless requested on original order. Performed By: #### L [id number] #### [facility] ([facility]) [address] [place] [address] NITRITE PRESENCE IN URINE Negative Normal Negative [facility] Comment on above: Order Comment: Micro scopics not performed on urines with negative chemical reactions unless requested on original order. Performed By: #### L [id number] #### [facility] ([facility]) [address] [place] [address] pH (U) 6.0 [pH] Normal 5.0-8.0 [facility] Comment on above: Order Comment: Micro scopics not performed on urines with negative chemical reactions unless requested on original order. Performed By: #### L [id number] #### [facility] ([facility]) [address] [place] [address] Protein (U) [Mass/Vol] Negative Normal Negative [facility] Comment on above: Order Comment: Micro scopics not performed on urines with negative chemical reactions unless requested on original order. Performed By: #### L [id number] #### [facility] ([facility]) [address] [place] [address] Specific gravity (U) [Rel density] 1.041 High 1.015-1.02 0 [facility] Comment on above: Order Comment: Micro scopics not performed on urines with negative chemical reactions unless requested on original order. Performed By: #### L [id number] #### [facility] ([facility]) [address] [place] [address] Office Visiton 10-24-2023 Follow-up visit [id number] Dariel Eli S 1965 F Date Provider Department Center 10/24/2023 MARI ACHARYA ALECIA [facility] Family History Problem Relation Age of Onset Alzheimer's disease Father Family Status - Relation Status Age at Mother Alive Father Level of Service:21412 DC OFFICE/OUTPATIENT ESTABLISHED MOD MDM 30 MIN Normal [facility] Orders Onlyon 09-01-2023 Orders Only [id number] Dariel Eli S 1965 Provider Department Center 09/01/2023 Jony8MARVIN [facility] Family History Problem Relation Age of Onset Alzheimer's disease Father Family Status - Relation Status Age at Mother Alive Father Normal [facility] CBC AUTO DIFFon 01-07-2023 BASO # 0.0 103/ul Normal 0.0-0.[address] [facility] Comment on above: Performed By: #### C BC ####[facility] [address] [place] [address]Dr. Shahbaz Rogel Basophils/100 WBC (Bld) 0.3 % Normal 0.2-2.[address] [facility] Comment on above: Performed By: #### C BC ####[facility] [address] [place] [id number] Rogel EO # 0.0 103/ul Normal 0.0-0.[address] [facility] Comment on above: Performed By: #### C BC ####[facility] [address]xf[address] [place] [address]Dr. Shahbaz Rogel Eosinophils/100 WBC (Bld) 0.0 % Critically low 0.9-7.0 [facility] Comment on above: Performed By: #### C BC ####[facility] Syxtcdnzxp[address] [place] [address]Dr. Shahbaz Rogel Erythrocyte distribution width (RBC) [Ratio] 13.5 % Normal 11.0-15.[address] [facility] Comment on above: Performed By: #### C BC ####[facility] [address] [place], [place] [address]Dr. Shahbaz Rogel Hematocrit (Bld) [Volume fraction] 36.4 % Normal 36.0-48.[address] [facility] Comment on above: Performed By: #### C BC ####[facility] [address]zsjcsu[address] [place], [place] [address]Dr. Shahbaz Rogel Hemoglobin (Bld) [Mass/Vol] 11.6 g/dL Critically low 12.0-16.0 [facility] Comment on above: Performed By: #### C BC ####[facility] Pvxatkhqha[address] [place], [place] [address]Dr. Shahbaz Rogel IG # 0.06 10e3/ul Critically high 0.00-0.[address] [facility] Comment on above: Performed By: #### C BC ####[facility] Gnoldggpuz[address] [place], [place] [address]Dr. Shahbaz Rogel IG % 1.5 % Critically high 0.0-0.5 [facility] Comment on above: Performed By: #### C BC ####[facility] Uuccwqrork[address] [place], [place] [address]DrChen Shahbaz Rogel LYMPH # 0.7 103/ul Critically low 1.2-3.8 [facility] Comment on above: Performed By: #### C BC ####[facility] Shkjyjqmuc[address] [place], [place] [address]Dr. Shahbaz Rogel Lymphocytes/100 WBC (Bld) 16.6 % Critically low 20.5-60.[address] [facility] Comment on above: Performed By: #### C BC ####[facility] [address]deaftg[address] [place] [address]Dr. Shahbaz Rogel MANUAL DIFF REQ NO Normal [facility] Comment on above: Performed By: #### C BC ####[facility] [address]ize[address] [place] [address]Dr. Shahbaz Rogel MCH (RBC) [Entitic mass] 27.6 pg Normal 26.7-34.[address] [facility] Comment on above: Performed By: #### C BC ####[facility] Mbgyzwutuc[address] [place] [address]Dr. Shahbaz Rogel MCHC (RBC) [Mass/Vol] 31.9 g/dL Normal 29.9-35.2 [facility] Comment on above: Performed By: #### C BC ####[facility] Cgcocctzkq[address] [place], [place] [address]Dr. Shahbaz Rogel MCV (RBC) [Entitic vol] 86.5 fL Normal 81.0-99.[address] [facility] Comment on above: Performed By: #### C BC ####[facility] Qtykawxvrk[address] [place], [place] [address]DrChen Rogel MONO # 0.2 103/ul Critically low 0.3-0.[address] [facility] Comment on above: Performed By: #### C BC ####[facility] Pgeumyhona[address] [place], [place] [address]DrChen Rogel Monocytes/100 WBC (Bld) 5.0 % Normal 1.7-12.0 [facility] Comment on above: Performed By: #### C BC ####[facility] Mihyfcqiah[address] [place], [place] [address]DrChen Rogel NEUT # 3.1 103/ul Normal 1.4-6.5 [facility] Comment on above: Performed By: #### C BC ####[facility] Yujxcbwntr[address] [place], [place] [address]DrChen Rogel Neutrophils/100 WBC (Bld) 76.6 % Critically high 43.0-75.[address] [facility] Comment on above: Performed By: #### C BC ####[facility] [address]qljuior[address] [place] [address]Dr. Shahbaz Rogel Platelet mean volume (Bld) [Entitic vol] 9.9 fL Normal 9.5-13.[address] [facility] Comment on above: Performed By: #### C BC ####[facility] Qpsjnwbpyj[address] [place] [address]Dr. Shahbaz Rogel PLT 194 103/ul Normal 150-450 [facility] Comment on above: Performed By: #### C BC ####[facility] Zvngusrftb[address] [place], [place] [address]Dr. Shahbaz Rogel RBC 4.21 106/ul Normal 4.20-5.40 [facility] Comment on above: Performed By: #### C BC ####[facility] Xcgwmortpe[address] [place], [place] [address]DrChen Rogel WBC 4.0 103/ul Normal 4.0-11.0 [facility] Comment on above: Performed By: #### C BC ####[facility] Skxkhvnagw[address] [place], [place] [address]DrChen Rogel PROF CHEM 8 (BAS METB)on Anion gap [Moles/Vol] 9.5 mmol/L Normal [facility] Comment on above: Performed By: #### B MP ####[facility] Jnpldkanzc[address] [place], [place] [address]DrChen Rogel Calcium [Mass/Vol] 8.8 mg/dL Normal 8.5-10.1 [facility] Comment on above: Performed By: #### B MP ####[facility] Brddarpkia[address] [place], [place] [address]DrChen Rogel Chloride [Moles/Vol] 106 mmol/L Normal 98-107 [facility] Comment on above: Performed By: #### B MP ####[facility] Isqocuwrvc[address] [place], [place] [address]DrChen Rogel CO2 [Moles/Vol] 29.6 mmol/L Normal 21.0-32.[address] [facility] Comment on above: Performed By: #### B MP ####[facility] Evcrcchorg[address] [place] [address]Dr. Shahbaz Rogel Creatinine [Mass/Vol] 0.80 mg/dL Normal 0.55-1.[address] [facility] Comment on above: Performed By: #### B MP ####[facility] Ltscxjmktf[address] [place] [address]Dr. Shahbaz Juan F EGFR-AF CITIZEN [place] >60 Normal >=[address] [facility] Comment on above: Performed By: #### B MP ####[facility] Ijmdeparnn[address] [place], [place] [address]Dr. Shahbaz Juan F EGFR-NON AF CITIZEN [place] >60 Normal >=[address] [facility] Comment on above: Performed By: #### B MP ####[facility] Gjonfeugvp[address] [place], [place] [address]Dr. Lilajarrod Juan F Glucose [Mass/Vol] 137 mg/dL Critically high 74-106 [facility] Comment on above: Performed By: #### B MP ####[facility] Aephdiwccy[address] [place], [place] [address]Dr. Shahbaz Juan F Potassium [Moles/Vol] 4.1 mmol/L Normal 3.5-5.[address] [facility] Comment on above: Performed By: #### B MP ####[facility] Agdsxreemt[address] [place], [place] [address]Dr. Lilajarrod Juan F Sodium [Moles/Vol] 141 mmol/L Normal 136-145 [facility] Comment on above: Performed By: #### B MP ####[facility] Fmsijwnung[address] [place], [place] [address]Dr. Shahbaz Rogel Urea nitrogen [Mass/Vol] 18.0 mg/dL Normal 7.0-18.[address] [facility] Comment on above: Performed By: #### B MP ####[facility] Rkgvjildid[address] [place], [place] [address]Dr. Shahbaz Rogel Urea nitrogen/Creatinine [Mass ratio] 22.5 mg/mg Normal [facility] Comment on above: Performed By: #### B MP ####[facility] Splkibgvhr[address] [place] [address]Dr. Shahbaz Juan F CBC AUTO DIFFon 01-06-2023 BASO # 0.0 103/ul Normal 0.0-0.[address] [facility] Comment on above: Performed By: #### C BC ####[facility] [address]ordtoyks[address] [place] [id number]. Shahbaz Rogel Basophils/100 WBC (Bld) 0.0 % Critically low 0.2-2.[address] [facility] Comment on above: Performed By: #### C BC ####[facility] Rjamcnozyu[address] [place], [place] [address]Dr. Shahbaz Rogel EO # 0.0 103/ul Normal 0.0-0.[address] [facility] Comment on above: Performed By: #### C BC ####[facility] Bonfxlwhso[address] [place], [place] [address]Dr. Shahbaz Rogel Eosinophils/100 WBC (Bld) 0.0 % Critically low 0.9-7.[address] [facility] Comment on above: Performed By: #### C BC ####[facility] Czvynknakb[address] [place], [place] [address]Dr. Lilajarrod Rogel Erythrocyte distribution width (RBC) [Ratio] 13.8 % Normal 11.0-15.[address] [facility] Comment on above: Performed By: #### C BC ####[facility] Kyfxzadflv[address] [place], [place] [address]Dr. Shahbaz Rogel Hematocrit (Bld) [Volume fraction] 36.9 % Normal 36.0-48.0 [facility] Comment on above: Performed By: #### C BC ####[facility] Kykocbbkqn[address] [place], [place] [address]Dr. Shahbaz Rogel Hemoglobin (Bld) [Mass/Vol] 11.8 g/dL Critically low 12.0-16.0 [facility] Comment on above: Performed By: #### C BC ####[facility] Wnoicvplhj[address] [place], [place] [address]Dr. Shahbaz Rogel IG # 0.04 10e3/ul Critically high 0.00-0.[address] [facility] Comment on above: Performed By: #### C BC ####[facility] [address]fqxdixcx[address] [place] [address]DrChen Shahbaz Rogel IG % 1.1 % Critically high 0.0-0.[address] [facility] Comment on above: Performed By: #### C BC ####[facility] Rlvbatenpw[address] [place] [address]DrChen Shahbaz Rogel LYMPH # 0.5 103/ul Critically low 1.2-3.[address] [facility] Comment on above: Performed By: #### C BC ####[facility] Y[address]dpjipqy[address] [place], [place] [address]DrChen Shahbaz Juan F Lymphocytes/100 WBC (Bld) 13.9 % Critically low 20.5-60.[address] [facility] Comment on above: Performed By: #### C BC ####[facility] Yekvrkoser[address] [place], [place] [address]DrChen Shahbaz Juan F MANUAL DIFF REQ NO Normal [facility] Comment on above: Performed By: #### C BC ####[facility] [address]ufoqxqupy[address] [place], [place] [address]DrChen Shahbaz Rogel MCH (RBC) [Entitic mass] 27.8 pg Normal 26.7-34.[address] [facility] Comment on above: Performed By: #### C BC ####[facility] Ydmupvmxdi[address] [place], [place] [address]DrChen Shahbaz Rogel MCHC (RBC) [Mass/Vol] 32.0 g/dL Normal 29.9-35.[address] [facility] Comment on above: Performed By: #### C BC ####[facility] [address]ngdcsmqs[address] [place], [place] [address]DrChen Shahbaz Juan F MCV (RBC) [Entitic vol] 86.8 fL Normal 81.0-99.[address] [facility] Comment on above: Performed By: #### C BC ####[facility] Gnwqunvesk[address] [place], [place] [address]DrChen Shahbaz Juan F MONO # 0.1 103/ul Critically low 0.3-0.[address] [facility] Comment on above: Performed By: #### C BC ####[facility] Rnlthkgkma[address] [place] [address]Dr. Shahbaz Rogel Monocytes/100 WBC (Bld) 3.7 % Normal 1.7-12.[address] [facility] Comment on above: Performed By: #### C BC ####[facility] [address]osnmnctf[address] [place] [address]Dr. Shahbaz Rogel NEUT # 3.1 103/ul Normal 1.4-6.[address] [facility] Comment on above: Performed By: #### C BC ####[facility] Cvwvkhjqpw[address] [place] [address]Dr. Shahbaz Rogel Neutrophils/100 WBC (Bld) 81.3 % Critically high 43.0-75.[address] [facility] Comment on above: Performed By: #### C BC ####[facility] [address]qjqkwhb[address] [place] [address]Dr. Shahbaz Rogel Platelet mean volume (Bld) [Entitic vol] 9.8 fL Normal 9.5-13.5 [facility] Comment on above: Performed By: #### C BC ####[facility] [address]paxmfn[address] [place] [address]Dr. Shahbaz Rogel PLT 184 103/ul Normal 150-450 [facility] Comment on above: Performed By: #### C BC ####[facility] Eicbigrnds[address] [place] [address]Dr. Shahbaz Rogel RBC 4.25 106/ul Normal 4.20-5.40 [facility] Comment on above: Performed By: #### C BC ####[facility] Xxalcylyra[address] [place] [address]Dr. Shahbaz Rogel WBC 3.8 103/ul Critically low 4.0-11.0 [facility] Comment on above: Performed By: #### C BC ####[facility] Ycrzemstlj[address] [place] [address]Dr. Shahbaz Juan F PROF CHEM 8 (BAS METB)on Anion gap [Moles/Vol] 9.2 mmol/L Normal [facility] Comment on above: Performed By: #### B MP ####[facility] V[address]glqyposf[address] [place] [address]Dr. Shahbaz Rogel Calcium [Mass/Vol] 8.6 mg/dL Normal 8.5-10.[address] [facility] Comment on above: Performed By: #### B MP ####[facility] Ajgwywlmgu[address] [place], [place] [address]Dr. Shahbaz Rogel Chloride [Moles/Vol] 107 mmol/L Normal 98-[address] [facility] Comment on above: Performed By: #### B MP ####[facility] Kmbgkvwhfe[address] [place], [place] [address]Dr. Shahbaz Rogel CO2 [Moles/Vol] 29.3 mmol/L Normal 21.0-32.[address] [facility] Comment on above: Performed By: #### B MP ####[facility] Ctrooamiku[address] [place], [place] [address]Dr. Shahbaz Rogel Creatinine [Mass/Vol] 0.79 mg/dL Normal 0.55-1.[address] [facility] Comment on above: Performed By: #### B MP ####[facility] Sfsjbzjxiy[address] [place], [place] [address]Dr. Shahbaz Juan F EGFR-AF CITIZEN OF [place] >60 Normal >=[address] [facility] Comment on above: Performed By: #### B MP ####[facility] Uqwdtwfwca[address] [place], [place] [address]Dr. Lilajarrod Juan F EGFR-NON AF CITIZEN OF [place] >60 Normal >=[address] [facility] Comment on above: Performed By: #### B MP ####[facility] Rgatixbdkm[address] [place], [place] [address]Dr. Shahbaz Rogel Glucose [Mass/Vol] 159 mg/dL Critically high 74-106 [facility] Comment on above: Performed By: #### B MP ####[facility] Mbconyxafh[address] [place], [place] [address]Dr. Shahbaz Rogel Potassium [Moles/Vol] 3.5 mmol/L Normal 3.5-5.[address] [facility] Comment on above: Performed By: #### B MP ####[facility] [address]zmvlsars[address] [place] [address]Dr. Shahbaz Rogel Sodium [Moles/Vol] 142 mmol/L Normal 136-145 [facility] Comment on above: Performed By: #### B MP ####[facility] Lpkhkuuune[address] [place], [place] [address]Dr. Shahbaz Rogel Urea nitrogen [Mass/Vol] 21.0 mg/dL Critically high 7.0-18.0 [facility] Comment on above: Performed By: #### B MP ####[facility] Hdmunecyvn[address] [place], [place] [address]Dr. Shahbaz Rogel Urea nitrogen/Creatinine [Mass ratio] 26.6 mg/mg Normal [facility] Comment on above: Performed By: #### B MP ####[facility] Razguysisb05[address] [place], [place] [address]Dr. Shahbaz Rogel XR CHEST 2 Von 01-06-2023 XR CHEST 2 V Normal [facility] CBC AUTO DIFFon 01-05-2023 BASO # 0.0 103/ul Normal 0.0-0.1 [facility] Comment on above: Performed By: #### C BC ####[facility] Hfolxrhefx197[address] [place], [place] [address]Dr. Shahbaz Rogel Basophils/100 WBC (Bld) 0.2 % Normal 0.2-2.0 [facility] Comment on above: Performed By: #### C BC ####[facility] Yaeipmqqdk650[address] [place], [place] [address]Dr. Shahbaz Rogel EO # 0.0 103/ul Normal 0.0-0.7 [facility] Comment on above: Performed By: #### C BC ####[facility] Nsdtpoovuy918[address] [place], [place] [address]Dr. Shahbaz Rogel Eosinophils/100 WBC (Bld) 0.0 % Critically low 0.9-7.0 [facility] Comment on above: Performed By: #### C BC ####[facility] Cprprylghh834[address] [place], [place] [address]Dr. Shahbaz Rogel Erythrocyte distribution width (RBC) [Ratio] 13.6 % Normal 11.0-15.0 [facility] Comment on above: Performed By: #### C BC ####[facility] Blecbebnow[address] [place] [address]Dr. Shahbaz Rogel Hematocrit (Bld) [Volume fraction] 36.6 % Normal 36.0-48.0 [facility] Comment on above: Performed By: #### C BC ####[facility] Yhqsjzitts708[address] [place], [place] [address]Dr. Shahbaz Rogel Hemoglobin (Bld) [Mass/Vol] 11.6 g/dL Critically low 12.0-16.0 [facility] Comment on above: Performed By: #### C BC ####[facility] Qeajankwnm524[address] [place], [place] [address]Dr. Shahbaz Rogel IG # 0.03 10e3/ul Normal 0.00-0.[address] [facility] Comment on above: Performed By: #### C BC ####[facility] Gjinlximly813357 [address] [place], [place] [address]Dr. Shahbaz Rogel IG % 0.5 % Normal 0.0-0.[address] [facility] Comment on above: Performed By: #### C BC ####[facility] Ofavyuodha[address] [place], [place] [address]Dr. Shahbaz Rogel LYMPH # 0.6 103/ul Critically low 1.2-3.8 [facility] Comment on above: Performed By: #### C BC ####[facility] Pujywgxpfb073157 [address] [place], [place] [address]Dr. Shahbaz Rogel Lymphocytes/100 WBC (Bld) 10.7 % Critically low 20.5-60.0 [facility] Comment on above: Performed By: #### C BC ####[facility] Tzcpqguazn638[address] [place], [place] [address]Dr. Shahbaz Juan F MANUAL DIFF REQ NO Normal [facility] Comment on above: Performed By: #### C BC ####[facility] Wkwihqktpn599257 [address] [place], [place] [address]Dr. Shahbaz Juan F MCH (RBC) [Entitic mass] 27.7 pg Normal 26.7-34.0 [facility] Comment on above: Performed By: #### C BC ####[facility] Ooqnvbjwik[address] [place] [address]Dr. Shahbaz Rogel MCHC (RBC) [Mass/Vol] 31.7 g/dL Normal 29.9-35.2 [facility] Comment on above: Performed By: #### C BC ####[facility] Zbdargldlk6024[address] [place], [place] [address]Dr. Shahbaz Rogel MCV (RBC) [Entitic vol] 87.4 fL Normal 81.0-99.0 [facility] Comment on above: Performed By: #### C BC ####[facility] Mnewnrexzm008057 [address] [place], [place] [address]Dr. Shahbaz Juan F MONO # 0.1 103/ul Critically low 0.3-0.8 [facility] Comment on above: Performed By: #### C BC ####[facility] Zwzgdwukaa249[address] [place], [place] [address]Dr. Lilajarrod Rogel Monocytes/100 WBC (Bld) 2.5 % Normal 1.7-12.0 [facility] Comment on above: Performed By: #### C BC ####[facility] Jrwqkgfsih955857 [address] [place], [place] [address]Dr. Shahbaz Rogel NEUT # 4.8 103/ul Normal 1.4-6.5 [facility] Comment on above: Performed By: #### C BC ####[facility] Jbmebfgsrv577[address] [place], [place] [address]Dr. Lilajarrod Rogel Neutrophils/100 WBC (Bld) 86.1 % Critically high 43.0-75.0 [facility] Comment on above: Performed By: #### C BC ####[facility] Wfzwqiishq795[address] [place], [place] [address]Dr. Shahbaz Juan F Platelet mean volume (Bld) [Entitic vol] 10.0 fL Normal 9.5-13.5 [facility] Comment on above: Performed By: #### C BC ####[facility] Aoknxmtndq[address] [place] [address]Dr. Lilajarrod Juan F PLT 193 103/ul Normal 150-450 [facility] Comment on above: Performed By: #### C BC ####[facility] Faafnulqoy868157 [address] [place], [place] [address]Dr. Shahbaz Juan F RBC 4.19 106/ul Critically low 4.20-5.40 [facility] Comment on above: Performed By: #### C BC ####[facility] Fcabxbqomn215157 [address] [place], [place] [address]Dr. Shahbaz Juan F WBC 5.6 103/ul Normal 4.0-11.0 [facility] Comment on above: Performed By: #### C BC ####[facility] Wojydhzoog597[address] [place], [place] [address]Dr. Lilajarrod Rogel PROF CHEM 8 (BAS METB)on Anion gap [Moles/Vol] 12.7 mmol/L Normal [facility] Comment on above: Performed By: #### B MP ####[facility] Oknhcgccfk829[address] [place], [place] [address]Dr. Shahbaz Rogel Calcium [Mass/Vol] 8.8 mg/dL Normal 8.5-10.1 [facility] Comment on above: Performed By: #### B MP ####[facility] Lfokuxqcce372757 [address] [place], [place] [address]Dr. Shahbaz Rogel Chloride [Moles/Vol] 107 mmol/L Normal 98-107 [facility] Comment on above: Performed By: #### B MP ####[facility] Fypuglhmxv288[address] [place], [place] [address]Dr. Shahbaz Rogel CO2 [Moles/Vol] 26.9 mmol/L Normal 21.0-32.0 [facility] Comment on above: Performed By: #### B MP ####[facility] Pxvnsxojor8737[address] [place], [place] [address]Dr. Shahbaz Rogel Creatinine [Mass/Vol] 0.81 mg/dL Normal 0.55-1.02 [facility] Comment on above: Performed By: #### B MP ####[facility] Ffmbevminq[address] [place], [place] [address]Dr. Shahbaz Rogel EGFR-AF CITIZEN [place] >60 Normal >=[address] [facility] Comment on above: Performed By: #### B MP ####[facility] Kwzkdxaqht[address] [place] [address]Dr. Shahbaz Rogel EGFR-NON AF CITIZEN OF [place] >60 Normal >=[address] [facility] Comment on above: Performed By: #### B MP ####[facility] Pbifqhrjmy[address] [place] [address]Dr. Shahbaz Rogel Glucose [Mass/Vol] 144 mg/dL Critically high 74-106 [facility] Comment on above: Performed By: #### B MP ####[facility] Pzkjkewqbc760[address] [place], [place] [address]Dr. Shahbaz Rogel Potassium [Moles/Vol] 3.6 mmol/L Normal 3.5-5.[address] [facility] Comment on above: Performed By: #### B MP ####[facility] Ysvvqxsrjz95495[address] [place], [place] [address]Dr. Shahbaz Rogel Sodium [Moles/Vol] 143 mmol/L Normal 136-[address] [facility] Comment on above: Performed By: #### B MP ####[facility] Viecvjrcpq980357 [address] [place], [place] [address]Dr. Shahbaz Rogel Urea nitrogen [Mass/Vol] 20.0 mg/dL Critically high 7.0-18.[address] [facility] Comment on above: Performed By: #### B MP ####[facility] Cvfzejiycw1575[address] [place], [place] [address]Dr. Shahbaz Rogel Urea nitrogen/Creatinine [Mass ratio] 24.7 mg/mg Normal [facility] Comment on above: Performed By: #### B MP ####[facility] Kpeizddtsz4445[address] [place], [place] [address]Dr. Shahbaz Rogel CBC W MANUAL DIFFon 01-05-20 23 ATYPICAL LYMPH # Normal [facility] Comment on above: Performed By: #### C BCMAN ####[facility] Yunumojfxu100[address] [place], [place] [address]Dr. Shahbaz Rogel ATYPICAL LYMPH % Normal [facility] Comment on above: Performed By: #### C BCBRICE ####[facility] [address]ajknbxc[address] [place] [address]Dr. Yilan Rogel BAND # 0.0 103/ul Normal 0.0-0.3 [facility] Comment on above: Performed By: #### C BCMAN ####[facility] Ggwnuookch[address] [place] [address]Dr. Yilan Rogel BAND % 0 % Normal 0-5 [facility] Comment on above: Performed By: #### C BCMAN ####[facility] Dyyiyrjuha[address] [place] [address]Dr. Yilan Rogel BASOM # 0.00 103/ul Normal 0.00-0.10 [facility] Comment on above: Performed By: #### C CAIN ####[facility] Ehhmvvbdcc04225[address] [place], [place] [address]Dr. Yilan Rogel BASOM % 0.0 % Critically low 0.2-2.0 [facility] Comment on above: Performed By: #### C CAIN ####[facility] Xkithesztu3635[address] [place], [place] [address]Dr. Yilan Rogel BLAST # Normal [facility] Comment on above: Performed By: #### C BCBRICE ####[facility] Ogdvakeega[address] [place], [place] [address]Dr. Yilan Rogel BLAST % Normal [facility] Comment on above: Performed By: #### C BCBRICE ####[facility] Eepoeutkfx0740[address] [place], [place] [address]Dr. Yilan Rogel CORRECTED WBC Normal 4.0-11.0 [facility] Comment on above: Performed By: #### C BCBRICE ####[facility] Uqyqefcjqr722[address] [place], [place] [address]Dr. Yilan Rogel EOS # 0.00 103/ul Normal 0.00-0.70 [facility] Comment on above: Performed By: #### C BCBRICE ####[facility] Fjclytqety[address] [place], [place] [address]Dr. Yilan Rogel EOS% 0.0 % Critically low 0.9-7.0 [facility] Comment on above: Performed By: #### C CAIN ####[facility] Adcecosqzv[address] [place] [address]Dr. Shahbaz Rogel HCT 36.5 % Normal 36.0-48.[address] [facility] Comment on above: Performed By: #### C CAIN ####[facility] Vicfzgmzkr3651 [place], [place] [address]Oe. Shahbaz Rogel HGB 11.8 g/dl Critically low 12.0-16.[address] [facility] Comment on above: Performed By: #### C CAIN ####[facility] Uvpzrqylnv0[address] [place] [address]Dr. Shahbaz Rogel LYMPHM # 0.42 103/ul Critically low 1.20-3.[address] [facility] Comment on above: Performed By: #### C CAIN ####[facility] Wseccymnnp4[address] [place] [address]Dr. Shahbaz Rogel LYMPHM% 12.0 % Critically low 20.5-60.[address] [facility] Comment on above: Performed By: #### Cheri BARLOW ####[facility] Ltsldoouij25[address] [place] [address]Dr. Shahbaz Rogel MCH 28.0 pg Normal 26.7-34.[address] [facility] Comment on above: Performed By: #### Cheri BARLOW ####[facility] Olmkudthko[address] [place] [address]Dr. Shahbaz Rogel MCHC 32.3 g/dl Normal 29.9-35.2 [facility] Comment on above: Performed By: #### C CAIN ####[facility] Rmgnletode7606 [place] [address]Dr. Shahbaz Rogel MCV 86.7 fL Normal 81.0-99.0 [facility] Comment on above: Performed By: #### C CAIN ####[facility] Ibjwxklqic96[address] [place] [address]Dr. Shahbaz Rogel METAMYELOCYTE # Normal [facility] Comment on above: Performed By: #### C CAIN ####[facility] Hrwgabffcj9[address] [place] [address]Dr. Shahbaz Rogel METAMYELOCYTE % Normal [facility] Comment on above: Performed By: #### C CAIN ####[facility] Prjudlxlor2[address] [place] [address]Dr. Shahbaz Rogel MONOM# 0.07 103/ul Critically low 0.30-0.[address] [facility] Comment on above: Performed By: #### C CAIN ####[facility] Cstinkctej26[address] [place] [address]Dr. Shahbaz Rogel MONOM% 2.0 % Normal 1.7-12.[address] [facility] Comment on above: Performed By: #### C CAIN ####[facility] [address]eiyppptkw[address] [place] [address]Dr. Shahbaz Rogel MPV 9.9 fL Normal 9.5-13.[address] [facility] Comment on above: Performed By: #### C CAIN ####[facility] Wibsxepior[address] [place] [address]Dr. Shahbaz Rogel MYELOCYTE # Normal [facility] Comment on above: Performed By: #### C CAIN ####[facility] Acellhtkpi7[address] [place] [address]Dr. Shahbaz Rogel MYELOCYTE % Normal [facility] Comment on above: Performed By: #### C CAIN ####[facility] Zzmuyxjvyb[address] [place] [address]Dr. Shahbaz Rogel NRBC Normal [facility] Comment on above: Performed By: #### C CAIN ####[facility] Prznqthjab8[address] [place] [address]Dr. Shahbaz Rogel PLT 178 103/ul Normal 150-450 [facility] Comment on above: Performed By: #### C CAIN ####[facility] Kfxszfwjwv09[address] [place] [address]Dr. Shahbaz Rogel RBC 4.21 106/ul Normal 4.20-5.40 [facility] Comment on above: Performed By: #### C CAIN ####[facility] Wzuinriasv64[address] [place] [address]Dr. Shahbaz Rogel RDW 13.2 % Normal 11.0-15.[address] [facility] Comment on above: Performed By: #### C CAIN ####[facility] Ipgvguukws8[address] [place] [address]Dr. Shahbaz Rogel SEG # 3.01 103/ul Normal 1.40-6.[address] [facility] Comment on above: Performed By: #### C CAIN ####[facility] Ckwhajxotl18[address] [place] [address]Dr. Shahbaz Juan F SEG % 86.0 % Critically high 43.0-75.[address] [facility] Comment on above: Performed By: #### C CAIN ####[facility] Arrbvvlyle6[address] [place] [address]Dr. Shahbaz Rogel WBC 3.5 103/ul Critically low 4.0-11.[address] [facility] Comment on above: Performed By: #### C CAIN ####[facility] Cenqfemsul15[address] [place] [address]DrChen Rogel PROF CHEM 8 (BAS METB)on Anion gap [Moles/Vol] 10.5 mmol/L Normal [facility] Comment on above: Performed By: #### B MP ####[facility] Zbklyiwrcf43[address] [place] [address]Dr. Shahbaz Rogel Calcium [Mass/Vol] 8.7 mg/dL Normal 8.5-10.1 [facility] Comment on above: Performed By: #### B MP ####[facility] Iqlvaywxfm34[address] [place] [address]Dr. Shahbaz Rogel Chloride [Moles/Vol] 108 mmol/L Critically high 98-107 [facility] Comment on above: Performed By: #### B MP ####[facility] Iwzxqrienk2037 [place] [address]DrChen Rogel CO2 [Moles/Vol] 25.2 mmol/L Normal 21.0-32.[address] [facility] Comment on above: Performed By: #### B MP ####[facility] Baarzgpjdp6020 [place] [address]Dr. Shahbaz Rogel Creatinine [Mass/Vol] 0.77 mg/dL Normal 0.55-1.[address] [facility] Comment on above: Performed By: #### B MP ####[facility] Cuoeoimmfy[address] [place] [address]Dr. Shahbaz Rogel EGFR-AF CITIZEN [place] >60 Normal >=[address] [facility] Comment on above: Performed By: #### B MP ####[facility] Iuyzrrqgcw354[address] [place], [place] [address]Dr. Shahbaz Rogel EGFR-NON AF CITIZEN OF [place] >60 Normal >=[address] [facility] Comment on above: Performed By: #### B MP ####[facility] Nlqovimbrq[address] [place], [place] [address]Dr. Shahbaz Rogel Glucose [Mass/Vol] 169 mg/dL Critically high 74-106 [facility] Comment on above: Performed By: #### B MP ####[facility] Mbuvpstolw198[address] [place], [place] [address]Dr. Shahbaz Roegl Potassium [Moles/Vol] 3.7 mmol/L Normal 3.5-5.[address] [facility] Comment on above: Performed By: #### B MP ####[facility] Hixzvccvgz8918[address] [place], [place] [address]Dr. Shahbaz Rogel Sodium [Moles/Vol] 140 mmol/L Normal 136-145 [facility] Comment on above: Performed By: #### B MP ####[facility] Gnbqemttwn4536[address] [place], [place] [address]Dr. Shahbaz Rogel Urea nitrogen [Mass/Vol] 14.0 mg/dL Normal 7.0-18.[address] [facility] Comment on above: Performed By: #### B MP ####[facility] Kpkxwhlnsi9740[address] [place], [place] [address]Dr. Shahbaz Rogel Urea nitrogen/Creatinine [Mass ratio] 18.2 mg/mg Normal [facility] Comment on above: Performed By: #### B MP ####[facility] Gllxcygjrf1739[address] [place], [place] [address]Dr. Shahbaz Rogel RESPIRATORY PANEL PLUSon Adenovirus Not detected Normal NOT DETECTED [facility] Comment on above: Performed By: #### R SPLUS ####[facility] Obfuwsqazk0[address] [place] [address]Dr. Shahbaz Rogel B. Parapertusis Not detected Normal NOT DETECTED [facility] Comment on above: Performed By: #### R SPLUS ####[facility] Ssalgpcrhf299[address] [place], [place] [address]Dr. Shahbaz Rogel B. Pertussis Not detected Normal NOT DETECTED [facility] Comment on above: Performed By: #### R SPLUS ####[facility] Zduiibjwnd7413[address] [place], [place] [address]Dr. Shahbaz Rogel Chlamydia Pneumoniae Not detected Normal NOT DETECTED [facility] Comment on above: Performed By: #### R SPLUS ####[facility] Aseiljtlyx4817[address] [place], [place] [address]Dr. jarrod Roegl Coronavirus 229E Not detected Normal NOT DETECTED [facility] Comment on above: Performed By: #### R SPLUS ####[facility] Rwwwzgabup545[address] [place], [place] [address]Dr. jarrod [facility] Coronavirus HKU1 Not detected Normal NOT DETECTED [facility] Comment on above: Performed By: #### R SPLUS ####[facility] Dxtfuimeyn966[address] [place], [place] [address]Dr. jarrod [facility] Coronavirus NL63 Not detected Normal NOT DETECTED [facility] Comment on above: Performed By: #### R SPLUS ####[facility] Zlqrprtecf585257 [address] [place], [place] [address]Dr. jarrod [facility] Coronavirus OC43 Not detected Normal NOT DETECTED [facility] Comment on above: Performed By: #### R SPLUS ####[facility] Xfllvvlzdz939857 [address] [place], [place] [address]Dr. Shahbaz Rogel Influenza A H1 Not detected Normal NOT DETECTED [facility] Comment on above: Performed By: #### R SPLUS ####[facility] Abrgbpgfkx460357 [address] [place], [place] [address]Dr. Lilajarrod Rogel Influenza A H1 2009 Not detected Normal NOT DETECTED [facility] Comment on above: Performed By: #### R SPLUS ####[facility] Qtojslqumr8281 [place] [address]Dr. Shahbaz Rogel Influenza A H3 Not detected Normal NOT DETECTED [facility] Comment on above: Performed By: #### R SPLUS ####[facility] Guzzlmtani09[address] [place] [address]Dr. Shahbaz Rogel Influenza B Not detected Normal NOT DETECTED [facility] Comment on above: Performed By: #### R SPLUS ####[facility] Atvhhhtsnc426[address] [place], [place] [address]Dr. Shahbaz Rogel Metapneumovirus Detected Abnormal NOT DETECTED [facility] Comment on above: Performed By: #### R SPLUS ####[facility] Kyuhfirtfj5515[address] [place], [place] [address]Dr. Shahbaz Rogel Mycoplas. Pneumoniae Not detected Normal NOT DETECTED [facility] Comment on above: Performed By: #### R SPLUS ####[facility] Yuhisogurn02[address] [place], [place] [address]Dr. Shahbaz Rogel Parainfluenza 1 Not detected Normal NOT DETECTED [facility] Comment on above: Performed By: #### R SPLUS ####[facility] Zltmtdekzy9826[address] [place], [place] [address]Dr. Shahbaz Rogel Parainfluenza 2 Not detected Normal NOT DETECTED [facility] Comment on above: Performed By: #### R SPLUS ####[facility] Kkhkibethu126[address] [place], [place] [address]Dr. Yijarrod Rogel Parainfluenza 3 Not detected Normal NOT DETECTED [facility] Comment on above: Performed By: #### R SPLUS ####[facility] Gtpbmrcfck409357 [address] [place], [place] [address]Dr. Yilan Rogel Parainfluenza 4 Not detected Normal NOT DETECTED [facility] Comment on above: Performed By: #### R SPLUS ####[facility] Eqiyjuwion317[address] [place], [place] [address]Dr. Yijarrod Rogel Rhino/Enterovirus Not detected Normal NOT DETECTED [facility] Comment on above: Performed By: #### R SPLUS ####[facility] Qwfkrmgted7370 [place] [address]Dr. Shahbaz Rogel RP2 Header 1 RESPIRATORY PANEL: VIRUSES Normal [facility] Comment on above: Performed By: #### R SPLUS ####[facility] Kkzwewsesj9[address] [place] [address]Dr. Shahbaz Rogel RP2 Header 2 RESPIRATORY PANEL: BACTERIA Normal [facility] Comment on above: Performed By: #### R SPLUS ####[facility] Ewelogzpbc345[address] [place], [place] [address]Dr. Shahbaz Rogel RSV Not detected Normal NOT DETECTED [facility] Comment on above: Performed By: #### R SPLUS ####[facility] Pjsipoyixz[address] [place], [place] [address]Dr. Shahbaz Rogel SARS-CoV-2 (COVID-19) RNA PAVAN+probe Ql (Unsp spec) Not detected Normal NOT DETECTED [facility] Comment on above: Performed By: #### R SPLUS ####[facility] Ozicurgqfo130[address] [place], [place] [address]Dr. Shahbaz Rogel CARDIAC ROSALINA 3-6on 3 CK [Catalytic activity/Vol] 148 U/L Normal 26-192 [facility] Comment on above: Performed By: #### C MREP ####[facility] Hwoaceolcy[address] [place], [place] [address]Dr. jarrod Rogel CK.MB [Mass/Vol] 0.84 ng/mL Normal <=3.60 [facility] Comment on above: Performed By: #### C MREP ####[facility] Sfeuadysen[address] [place], [place] [address]Dr. Shahbaz Rogel HSTROP 6.4 pg/mL Normal 4.0-51.3 [facility] Comment on above: Result Comment: CUT- OFF POINTS HAVE BEEN ESTABLISHED BASED ON THE FOURTH UNIVERSAL DEFINITIONS OF MYOCARDIALINFARCTION. THE UPPER REFERENCE LIMIT (URL) OF TROPONIN, DEFINED THE 99TH PERCENTILE OFcTnI DISTRIBUTION IN A REFERENCE POPULATION, HAS BEEN CONFIRMED THE DECISION THRESHOLDFOR ND DIAGNOSIS. Performed By: #### C MREP ####[facility] Lvsqkrstth2996 [place] [id number]. Shahbaz Rogel CBC W MANUAL DIFFon 01-04-20 23 ATYPICAL LYMPH # Normal [facility] Comment on above: Performed By: #### C CAIN ####[facility] Uxzylsfhjz6592 [place] [id number]. Shahbaz Rogel ATYPICAL LYMPH % Normal [facility] Comment on above: Performed By: #### C CAIN ####[facility] Fihmffkcdc50[address] [place] [address]Dr. Shahbaz Rogel BAND # 0.0 103/ul Normal 0.0-0.3 [facility] Comment on above: Performed By: #### C CAIN ####[facility] Rwvlvzjady3610 [place] [address]Dr. Shahbaz Rogel BAND % 0 % Normal 0-[address] [facility] Comment on above: Performed By: #### C CAIN ####[facility] Knwwpcmzkn3840 [place] [address]Dr. Shahbaz Rogel BASOM # 0.00 103/ul Normal 0.00-0.10 [facility] Comment on above: Performed By: #### C CAIN ####[facility] Yjnvayauri3369 [place] [address]Dr. Shahbaz Rogel BASOM % 0.0 % Critically low 0.2-2.[address] [facility] Comment on above: Performed By: #### C CAIN ####[facility] Pznqsczfik0596 [place] [address]Dr. Shahbaz Rogel BLAST # Normal [facility] Comment on above: Performed By: #### C CAIN ####[facility] Tfsekujlxd8629 [place] [address]Dr. Shahbaz Rogel BLAST % Normal [facility] Comment on above: Performed By: #### C CAIN ####[facility] Ndhwkyzorm0359 [place] [address]Dr. Shahbaz Rogel CORRECTED WBC Normal 4.0-11.0 [facility] Comment on above: Performed By: #### C CAIN ####[facility] Bbzgwxgbjp0832 [place] [address]Dr. Shahbaz Rogel EOS # 0.02 103/ul Normal 0.00-0.70 [facility] Comment on above: Performed By: #### Cheri BARLOW ####[facility] Epsbacpdfe6760 [place] [address]Dr. Shahbaz Rogel EOS% 1.0 % Normal 0.9-7.0 [facility] Comment on above: Performed By: #### C CAIN ####[facility] Wiulrcjomt3502 [place] [address]Dr. Shahbaz Rogel HCT 37.5 % Normal 36.0-48.0 [facility] Comment on above: Performed By: #### Cheri BARLOW ####[facility] Cwfssvewlt0734 [place] [address]Dr. Shahbaz Rogel HGB 12.0 g/dl Normal 12.0-16.0 [facility] Comment on above: Performed By: #### Cheri BARLOW ####[facility] Mcngnjmojf6583 [place] [address]Dr. Shahbaz Rogel LYMPHM # 0.21 103/ul Critically low 1.20-3.80 [facility] Comment on above: Performed By: #### Cheri BARLOW ####[facility] Pxiprjagco4625 [place] [address]Dr. Shahbaz Rogel LYMPHM% 13.0 % Critically low 20.5-60.0 [facility] Comment on above: Performed By: #### Cheri BARLOW ####[facility] Qhsgrldlwq6648 [place] [address]Dr. Shahbaz Rogel MCH 27.8 pg Normal 26.7-34.0 [facility] Comment on above: Performed By: #### Cheir BARLOW ####[facility] Frappluvhh2546 [place] [address]Dr. Shahbaz Rogel MCHC 32.0 g/dl Normal 29.9-35.2 [facility] Comment on above: Performed By: #### Cheri BARLOW ####[facility] Pdidilbrmq7104 [place] [address]Dr. Shahbaz Rogel MCV 86.8 fL Normal 81.0-99.[address] [facility] Comment on above: Performed By: #### C CAIN ####[facility] Ochnpqyack9999 [place] [address]Dr. Shahbaz Rogel METAMYELOCYTE # Normal [facility] Comment on above: Performed By: #### C CAIN ####[facility] Hsibmagubq6668 [place] [id number]. Shahbaz Rogel METAMYELOCYTE % Normal [facility] Comment on above: Performed By: #### C CAIN ####[facility] Xfqyemyxze1953 [place] [address]Dr. Shahbaz Rogel MONOM# 0.02 103/ul Critically low 0.30-0.[address] [facility] Comment on above: Performed By: #### C CAIN ####[facility] Pugnfqptnq9156 [place] [address]Dr. Shahbaz Rogel MONOM% 1.0 % Critically low 1.7-12.[address] [facility] Comment on above: Performed By: #### C CAIN ####[facility] Fgkimgexct1760 [place] [address]Dr. Shahbaz Rogel MPV 9.5 fL Normal 9.5-13.[address] [facility] Comment on above: Performed By: #### C CAIN ####[facility] Ltfkszzzhb2738 [place] [address]Dr. Shahbaz Rogel MYELOCYTE # Normal [facility] Comment on above: Performed By: #### C CAIN ####[facility] Ykammjycwf2364 [place] [address]Dr. Shahbaz Rogel MYELOCYTE % Normal [facility] Comment on above: Performed By: #### C CAIN ####[facility] Kggsomrzgm2813 [place] [address]Dr. Shahbaz Rogel NRBC Normal [facility] Comment on above: Performed By: #### C CAIN ####[facility] Yjeeklpxwz0614 [place] [address]Dr. Shahbaz Rogel PLT 173 103/ul Normal 150-450 [facility] Comment on above: Performed By: #### Cheri BARLOW ####[facility] Mktlrshasi9284 [place] [address]Dr. Shahbaz Rogel RBC 4.32 106/ul Normal 4.20-5.40 [facility] Comment on above: Performed By: #### Cheri BARLOW ####[facility] Dfzaaliacp5607 [place] [address]Dr. Shahbaz Rogel RDW 13.1 % Normal 11.0-15.[address] [facility] Comment on above: Performed By: #### Cheri BARLOW ####[facility] Gmwrgbfmbs4547 [place] [address]Dr. Shahbaz Rogel SEG # 1.36 103/ul Critically low 1.40-6.[address] [facility] Comment on above: Performed By: #### Cheri BARLOW ####[facility] Zokfaeciyg7020 [place] [address]Dr. Shahbaz Rogel SEG % 85.0 % Critically high 43.0-75.[address] [facility] Comment on above: Performed By: #### Cheri BARLOW ####[facility] Xoltnbqlka7811 [place] [address]Dr. Shahbaz Rogel WBC 1.6 103/ul Critically low 4.0-11.[address] [facility] Comment on above: Performed By: #### Cheri BARLOW ####[facility] Dvsnjbjahw0212 [place] [address]Dr. Shahbaz Rogel CT CHEST WO CONon 01-03-2023 CT CHEST WO CON Normal [facility] ER URINE PROFILEon 3 Bilirubin Ql (U) Negative Normal NEGATIVE [facility] Comment on above: Performed By: #### E RUR ####[facility] Avyvvwwzbc1092 [place] [id number] Rogel Clarity (U) CLEAR Normal CLEAR [facility] Comment on above: Performed By: #### E RUR ####[facility] Qynffbxghg3574 [place] [address]DrChen Rogel Color (U) LT. YELLOW Normal YELLOW [facility] Comment on above: Performed By: #### E RUR ####[facility] Cyrxacajia5362 [place] [address]Dr. Shahbaz PRUITTD A micrscopic examina tion will be performed if indicated. Normal [facility] Comment on above: Performed By: #### E RUR ####[facility] Fyylvxcjhd3834 [place] [address]Dr. Shahbaz Rogel Glucose Ql (U) Negative Normal NEGATIVE [facility] Comment on above: Performed By: #### E RUR ####[facility] Lmkzyfdgbw[address] [place], [place] [address]Dr. Shahbaz Jua nF Hemoglobin Ql (U) Negative Normal NEGATIVE [facility] Comment on above: Performed By: #### E RUR ####[facility] Wcktipxkpn838[address] [place], [place] [address]Dr. Shahbaz Juan F Ketones Ql (U) Negative Normal NEGATIVE [facility] Comment on above: Performed By: #### E RUR ####[facility] Wipfteldds[address] [place], [place] [address]Dr. Lilajarrod Rogel LEUKOCYTES Negative Normal NEGATIVE [facility] Comment on above: Performed By: #### E RUR ####[facility] Kviosrtiba27[address] [place], [place] [address]Dr. Shahbaz Juan F Nitrite Ql (U) Negative Normal NEGATIVE [facility] Comment on above: Performed By: #### E RUR ####[facility] Ilwrfoqpug519[address] [place], [place] [address]Dr. Shahbaz Rogel pH (U) 6.0 [pH] Normal 5-9 [facility] Comment on above: Performed By: #### E RUR ####[facility] Wzmyqrnozh280[address] [place], [place] [address]Dr. Shahbaz Rogel SPEC GRAVITY <=1.005 Abnormal 1.005-<=1. [address] [facility] Comment on above: Performed By: #### E RUR ####[facility] Lhnguwkoly268[address] [place], [place] [address]Dr. Shahbaz Rogel UA PROTEIN Negative Normal NEGATIVE/ TRACE [facility] Comment on above: Performed By: #### E RUR ####[facility] Yfsjqpensu854[address] [place], [place] [address]Dr. Shahbaz Rogel UR MICRO IND NOT INDICATED Normal [facility] Comment on above: Performed By: #### E RUR ####[facility] Cslfheiyzj[address] [place], [place] [address]Dr. Shahbaz Rogel Urobilinogen Qn (U) 0.2 {Melida'U}/dL Normal 0.2 - 1. [address] [facility] Comment on above: Performed By: #### E RUR ####[facility] Nenmazvrrb[address] [place], [place] [address]Dr. Shahbaz Rogel LACTATE/LACTIC ACIDon 2022 Lactate [Moles/Vol] 1.5 mmol/L Normal 0.4-2.[address] [facility] Comment on above: Performed By: #### L ACT ####[facility] Dkmxhzgxdx059[address] [place], [place] [address]Dr. Shahbaz Rogel PROF CHEM 8 (BAS METB)on Anion gap [Moles/Vol] 11.6 mmol/L Normal [facility] Comment on above: Performed By: #### B MP ####[facility] Frksirrnmf7[address] [place], [place] [address]Dr. Shahbaz Rogel Calcium [Mass/Vol] 8.1 mg/dL Critically low 8.5-10.1 [facility] Comment on above: Performed By: #### B MP ####[facility] Dofzjofiqg040[address] [place], [place] [address]Dr. Shahbaz Rogel Chloride [Moles/Vol] 109 mmol/L Critically high 98-[address] [facility] Comment on above: Performed By: #### B MP ####[facility] Ncacmsrfag034[address] [place], [place] [address]Dr. Shahbaz Rogel CO2 [Moles/Vol] 25.2 mmol/L Normal 21.0-32.[address] [facility] Comment on above: Performed By: #### B MP ####[facility] Utjgoulgbu8[address] [place], [place] [address]Dr. Shahbaz Rogel Creatinine [Mass/Vol] 0.89 mg/dL Normal 0.55-1.[address] [facility] Comment on above: Performed By: #### B MP ####[facility] Nyjwvbttvx5037 [place] [address]Dr. Shahbaz Juan F EGFR-AF CITIZEN [place] >60 Normal >=[address] [facility] Comment on above: Performed By: #### B MP ####[facility] Mhiympxobr5156 [place] [address]Dr. Shahbaz Juan F EGFR-NON AF CITIZEN OF [place] >60 Normal >=[address] [facility] Comment on above: Performed By: #### B MP ####[facility] Ldlpzqqxro8517 [place] [address]Dr. Shahbaz Rogel Glucose [Mass/Vol] 167 mg/dL Critically high 74-106 [facility] Comment on above: Performed By: #### B MP ####[facility] Oatbnjloxs1084 [place] [address]Dr. Shahbaz Rogel Potassium [Moles/Vol] 3.8 mmol/L Normal 3.5-5.[address] [facility] Comment on above: Performed By: #### B MP ####[facility] Fpvdjlaemm[address] [place], [place] [address]Dr. Shahbaz Rogel Sodium [Moles/Vol] 142 mmol/L Normal 136-[address] [facility] Comment on above: Performed By: #### B MP ####[facility] Bviuwzsmdi0327 [place] [address]Dr. Shahbaz Rogel Urea nitrogen [Mass/Vol] 9.0 mg/dL Normal 7.0-18.[address] [facility] Comment on above: Performed By: #### B MP ####[facility] Zvaidtjqkr[address] [place], [place] [address]Dr. Shahbaz Rogel Urea nitrogen/Creatinine [Mass ratio] 10.1 mg/mg Normal [facility] Comment on above: Performed By: #### B MP ####[facility] Ovrbhbjuwe5543 [place] [address]Dr. Shahbaz Rogel CARDIAC ROSALINA ADMITon 023 CK [Catalytic activity/Vol] 173 U/L Normal 26-[address] [facility] Comment on above: Performed By: #### Cheri FALCON BMP ####[facility] Rqnkvrvicj3781 [place] [address]Dr. Shahbaz Rogel CK.MB [Mass/Vol] 0.55 ng/mL Normal <=3.60 [facility] Comment on above: Performed By: #### Cheri FALCON BMP ####[facility] Rwefdwwgkm6931 [place] [address]Dr. Shahbaz Rogel HSTROP 5.9 pg/mL Normal 4.0-51.3 [facility] Comment on above: Result Comment: CUT- OFF POINTS HAVE BEEN ESTABLISHED BASED ON THE FOURTH UNIVERSAL DEFINITIONS OF MYOCARDIALINFARCTION. THE UPPER REFERENCE LIMIT (URL) OF TROPONIN, DEFINED THE 99TH PERCENTILE OFcTnI DISTRIBUTION IN A REFERENCE POPULATION, HAS BEEN CONFIRMED THE DECISION THRESHOLDFOR ND DIAGNOSIS. Performed By: #### EMILIO HALL ####[facility] Ijcmyallqp1947 [place] [address]Dr. Shahbaz Rogel LEN 76 ng/mL Normal 9-[address] [facility] Comment on above: Performed By: #### EMILIO HALL ####[facility] Fhvuzsfxbq8100 [place] [address]Dr. Shahbaz Rogel CBC W MANUAL DIFFon 01-03-20 23 ATYPICAL LYMPH # Normal [facility] Comment on above: Performed By: #### Cheri BARLOW ####[facility] Qukftjluyz2627 [place] [address]Dr. Shahbaz Rogel ATYPICAL LYMPH % Normal [facility] Comment on above: Performed By: #### Cheri BARLOW ####[facility] Xhzektwyxd7072 [place] [address]Dr. Lilalan Rogel BAND # Normal 0.0-0.3 [facility] Comment on above: Performed By: #### Cheri BARLOW ####[facility] Uqngrvzbej0792 [place] [address]Dr. Lilalan Rogel BAND % Normal 0-5 [facility] Comment on above: Performed By: #### Cheri BARLOW ####[facility] Oapqcxbvuj4049 [place] [address]Dr. Shahbaz Rogel BASOM # 0.00 103/ul Normal 0.00-0.10 [facility] Comment on above: Performed By: #### C BCMAN ####[facility] Isphntwcmf[address] [place], [place] [address]Dr. Shahbaz Rogel BASOM % 0.0 % Critically low 0.2-2.0 [facility] Comment on above: Performed By: #### C BCMAN ####[facility] Uxtlaupkod354[address] [place], [place] [address]Dr. Shahbaz Rogel BLAST # Normal [facility] Comment on above: Performed By: #### C BCBRICE ####[facility] Jdkuqeonud237[address] [place], [place] [address]Dr. Shahbaz Rogel BLAST % Normal [facility] Comment on above: Performed By: #### C BCBRICE ####[facility] Pznhwtsarn[address] [place], [place] [address]Dr. Shahbaz Rogel CORRECTED WBC Normal 4.0-11.0 [facility] Comment on above: Performed By: #### C BCBRICE ####[facility] Whsjlpksso[address] [place], [place] [address]Dr. Shahbaz Rogel EOS # 0.03 103/ul Normal 0.00-0.70 [facility] Comment on above: Performed By: #### C BCBRICE ####[facility] Gczmjocnux[address] [place], [place] [address]Dr. Shahbaz Rogel EOS% 1.0 % Normal 0.9-7.0 [facility] Comment on above: Performed By: #### C BCBRICE ####[facility] Hamjjvxlgu66[address] [place], [place] [address]Dr. Shahbaz Rogel HCT 42.8 % Normal 36.0-48.0 [facility] Comment on above: Performed By: #### C BCMAN ####[facility] Uvflvldpxz7[address] [place], [place] [address]Dr. Shahbaz Rogel HGB 14.1 g/dl Normal 12.0-16.0 [facility] Comment on above: Performed By: #### C BCBRICE ####[facility] Mtgfdreulq5264 [place], [place] [address]Zj. Shahbaz Rogel LYMPHM # 0.64 103/ul Critically low 1.20-3.80 [facility] Comment on above: Performed By: #### C CAIN ####[facility] Yxdguymwso7346 [place], [place] [address]Wd. Shahbaz Rogel LYMPHM% 23.0 % Normal 20.5-60.0 [facility] Comment on above: Performed By: #### C CAIN ####[facility] Bildqnfxnc6773 [place] [address]Dr. Shahbaz Rogel MCH 28.0 pg Normal 26.7-34.0 [facility] Comment on above: Performed By: #### C CAIN ####[facility] Lmmettcbjq4166 [place] [address]Dr. Shahbaz Rogel MCHC 32.9 g/dl Normal 29.9-35.2 [facility] Comment on above: Performed By: #### Cheri BARLOW ####[facility] Olcrsfbjzc3409 [place] [address]Dr. Shahbaz Rogel MCV 84.9 fL Normal 81.0-99.0 [facility] Comment on above: Performed By: #### Cheri BARLOW ####[facility] Nnpspbvfpg0812 [place] [address]Dr. Shahbaz Rogel METAMYELOCYTE # Normal [facility] Comment on above: Performed By: #### Cheri BARLOW ####[facility] Zvtxmomcqt1022 [place] [address]Dr. Shahbaz Rogel METAMYELOCYTE % Normal [facility] Comment on above: Performed By: #### C CAIN ####[facility] Bekrlbycpx9451 [place] [address]Dr. Shahbaz Rogel MONOM# 0.31 103/ul Normal 0.30-0.80 [facility] Comment on above: Performed By: #### Cheri BARLOW ####[facility] Jrkcjlhvpu1391 [place] [address]Dr. Shahbaz Rogel MONOM% 11.0 % Normal 1.7-12.[address] [facility] Comment on above: Performed By: #### C CAIN ####[facility] Jxvnkudvpk8717 [place] [address]Dr. Shahbaz Rogel MPV 9.5 fL Normal 9.5-13.5 [facility] Comment on above: Performed By: #### C CAIN ####[facility] Efldmsznkl9481 [place] [address]Dr. Shahbaz Rogel MYELOCYTE # Normal [facility] Comment on above: Performed By: #### C CAIN ####[facility] Ozqpzskxdm7448 [place], [place] [address]Zj. Shahbaz Rogel MYELOCYTE % Normal [facility] Comment on above: Performed By: #### C CAIN ####[facility] Cllntthqev4587 [place] [address]Dr. Shahbaz Rogel NRBC Normal [facility] Comment on above: Performed By: #### C CAIN ####[facility] Dzgejzhwhf9065 [place] [address]Dr. Shahbaz Rogel PLT 197 103/ul Normal 150-450 [facility] Comment on above: Performed By: #### C CAIN ####[facility] Plzylcjqpg1426 [place] [address]Dr. Shahbaz Rogel RBC 5.04 106/ul Normal 4.20-5.40 [facility] Comment on above: Performed By: #### C CAIN ####[facility] Dwmsnocaki7511 [place] [address]Dr. Shahbaz Rogel RDW 13.2 % Normal 11.0-15.0 [facility] Comment on above: Performed By: #### C CAIN ####[facility] Kubftnibqy7929 [place] [address]Dr. Shahbaz Rogel SEG # 1.82 103/ul Normal 1.40-6.50 [facility] Comment on above: Performed By: #### C CAIN ####[facility] Yiqtnkxodx2311 [place] [address]Dr. Shahbaz Rogel SEG % 65.0 % Normal 43.0-75.0 [facility] Comment on above: Performed By: #### C CAIN ####[facility] Jytjktgdwl8827 [place], [place] [address]JbChen Rgoel WBC 2.8 103/ul Critically low 4.0-11.[address] [facility] Comment on above: Performed By: #### C CAIN ####[facility] Mbrtecslji3033 [place], [place] [address]UqChen Shahbaz Rogel Covid-19 PCR (CVDTB)on SARS-CoV-2 (COVID-19) RNA PAVAN+probe Ql (Unsp spec) Not detected Normal NOT DETECTED [facility] Comment on above: Result Comment: When diagnostic [...] for this test is supported by the [employer] Adjuster of Health and Human Service's declaration that [...] be used). Performed By: #### C VDTB ####[facility] Zlefzutubk0503 [place], [place] [address]TdChen Shahbaz Rogel D-DIMERon 01-02-2023 D-DIMER 0.38 mg/L FEU Normal <=0.59 [facility] Comment on above: Performed By: #### D DIM ####[facility] Mvqoaveuqu0088 [place], [place] [address]QgChen Shahbaz Rogel D-DIMER COMMENTS SEE BELOW Normal [facility] Comment on above: Result Comment: Incr eases [...] generalized hospitalization. Performed By: #### D DIM ####[facility] Xnkpsbsoqq[address] [place], [place] [address]Dr. Shahbaz Rogel LACTATE/LACTIC ACIDon 2022 Lactate [Moles/Vol] 2.1 mmol/L Critically high 0.4-2.[address] [facility] Comment on above: Performed By: #### L ACT ####[facility] Eupehnftdf[address] [place], [place] [address]Dr. Shahbaz Rogel PROF CHEM 8 (BAS METB)on Anion gap [Moles/Vol] 14.3 mmol/L Normal [facility] Comment on above: Performed By: #### C EZEKIEL, BMP ####[facility] Ohnfrwypor[address] [place], [place] [address]Dr. Shahbaz Rogel Calcium [Mass/Vol] 9.0 mg/dL Normal 8.5-10.[address] [facility] Comment on above: Performed By: #### C EZEKIEL, BMP ####[facility] Ksaiszdovu[address] [place], [place] [address]Dr. Shahbaz Rogel Chloride [Moles/Vol] 102 mmol/L Normal 98-[address] [facility] Comment on above: Performed By: #### C EZEKIEL, BMP ####[facility] Vpsefrlojj[address] [place], [place] [address]Dr. Shahbaz Rogel CO2 [Moles/Vol] 25.5 mmol/L Normal 21.0-32.[address] [facility] Comment on above: Performed By: #### C EZEKIEL, BMP ####[facility] Dkdqsjxqic108[address] [place], [place] [address]Dr. Shahbaz Rogel Creatinine [Mass/Vol] 1.01 mg/dL Normal 0.55-1.[address] [facility] Comment on above: Performed By: #### C EZEKIEL, BMP ####[facility] Stfzyljlje2750 [place] [address]Dr. Shahbaz Rogel EGFR-AF CITIZEN OF [place] >60 Normal >=60 [facility] Comment on above: Performed By: #### C MADM, BMP ####[facility] Yzgdfvgnlk0138 [place] [address]Dr. Shahbaz Rogel EGFR-NON AF CITIZEN OF [place] 56 mL/min/1.73m2 Critically low >=60 [facility] Comment on above: Performed By: #### C JOSSYM, BMP ####[facility] Jkrsenprqs6749 [place] [address]Dr. Lilajarrod Juan F Glucose [Mass/Vol] 105 mg/dL Normal 74-106 [facility] Comment on above: Performed By: #### C EZEKIEL, BMP ####[facility] Skckxjekvr3628 [place] [address]Dr. Lilajarrdo Juan F Potassium [Moles/Vol] 3.8 mmol/L Normal 3.5-5.[address] [facility] Comment on above: Performed By: #### C EZEKIEL, BMP ####[facility] Eiidkydsob4905 [place] [address]Dr. Shahbaz Juan F Sodium [Moles/Vol] 138 mmol/L Normal 136-145 [facility] Comment on above: Performed By: #### C EZEKIEL, BMP ####[facility] Ubqcjfyspx6482 [place] [address]Dr. Shahbaz Rogel Urea nitrogen [Mass/Vol] 9.0 mg/dL Normal 7.0-18.0 [facility] Comment on above: Performed By: #### C EZEKIEL, BMP ####[facility] [address] [place] [id number]. Lilajarrod Juan F Urea nitrogen/Creatinine [Mass ratio] 8.9 mg/mg Normal [facility] Comment on above: Performed By: #### C MADM, BMP ####[facility] [address]foqwemgf[address] [place] [id number]. Lilajarrod Juan F XR CHEST 1 Von 01-02-2023 XR CHEST 1 V Normal [facility] INSULINon 11-02-2022 Insulin 6.0 uIU/mL Normal 2.6-24.9 [facility] Comment on above: Performed By: #### I NSULIN ####[facility] [address]akj[address] [place] [address]Dr. Shahbaz Rogel CBC AUTO DIFFon 11-01-2022 BASO # 0.0 103/ul Normal 0.0-0.1 [facility] Comment on above: Performed By: #### C BC ####[facility] [address]dkocvypoz[address] [place] [address]Dr. Shahbaz Rogel Basophils/100 WBC (Bld) 0.5 % Normal 0.2-2.0 [facility] Comment on above: Performed By: #### C BC ####[facility] [address] [place], [place] [address]Dr. Shahbaz Rogel EO # 0.2 103/ul Normal 0.0-0.7 [facility] Comment on above: Performed By: #### C BC ####[facility] [address]wh[address] [place], [place] [address]Dr. Shahbaz Rogel Eosinophils/100 WBC (Bld) 5.2 % Normal 0.9-7.0 [facility] Comment on above: Performed By: #### C BC ####[facility] [address] [place], [place] [address]Dr. Shahbaz Rogel Erythrocyte distribution width (RBC) [Ratio] 12.7 % Normal 11.0-15.0 [facility] Comment on above: Performed By: #### C BC ####[facility] [address] [place], [place] [address]Dr. Shahbaz Rogel Hematocrit (Bld) [Volume fraction] 46.4 % Normal 36.0-48.0 [facility] Comment on above: Performed By: #### C BC ####[facility] [address]xt[address]onj[address] [place] [address]Dr. Shahbaz Rogel Hemoglobin (Bld) [Mass/Vol] 14.9 g/dL Normal 12.0-16.0 [facility] Comment on above: Performed By: #### C BC ####[facility] [address]op[address]qbc[address] [place] [id number]. Shahbaz Rogel IG # 0.00 10e3/ul Normal 0.00-0.[address] [facility] Comment on above: Performed By: #### C BC ####[facility] [address]sh[address] [place] [id number]. Shahbaz Rogel IG % 0.0 % Normal 0.0-0.5 [facility] Comment on above: Performed By: #### C BC ####[facility] [address]sigstgqms[address] [place] [address]Dr. Shahbaz Rogel LYMPH # 1.1 103/ul Critically low 1.2-3.8 [facility] Comment on above: Performed By: #### C BC ####[facility] [address] [place] [address]Dr. Shahbaz Rogel Lymphocytes/100 WBC (Bld) 25.5 % Normal 20.5-60.0 [facility] Comment on above: Performed By: #### C BC ####[facility] [address]ltsr[address] [place] [address]Dr. Shahbaz Rogel MANUAL DIFF REQ NO Normal [facility] Comment on above: Performed By: #### C BC ####[facility] [address]mceusak[address] [place] [address]Dr. Shahbaz Rogel MCH (RBC) [Entitic mass] 27.8 pg Normal 26.7-34.0 [facility] Comment on above: Performed By: #### C BC ####[facility] [address] [place] [address]Dr. Shahbaz Rogel MCHC (RBC) [Mass/Vol] 32.1 g/dL Normal 29.9-35.2 [facility] Comment on above: Performed By: #### C BC ####[facility] [address]okabrrz[address] [place] [address]Dr. Shahbaz Rogel MCV (RBC) [Entitic vol] 86.6 fL Normal 81.0-99.0 [facility] Comment on above: Performed By: #### C BC ####[facility] [address] [place] [id number]. Shahbaz Rogel MONO # 0.2 103/ul Critically low 0.3-0.8 [facility] Comment on above: Performed By: #### C BC ####[facility] Mxdwgmgubr[address] [place] [id number]. Shahbaz Rogel Monocytes/100 WBC (Bld) 5.4 % Normal 1.7-12.0 [facility] Comment on above: Performed By: #### C BC ####[facility] [address]wrik[address] [place] [id number]. Shahbaz Rogel NEUT # 2.7 103/ul Normal 1.4-6.5 [facility] Comment on above: Performed By: #### C BC ####[facility] [address]urejyi[address] [place] [address]Dr. Shahbaz Rogel Neutrophils/100 WBC (Bld) 63.4 % Normal 43.0-75.0 [facility] Comment on above: Performed By: #### C BC ####[facility] [address] [place] [phone]. Shahbaz Rogel Platelet mean volume (Bld) [Entitic vol] 9.4 fL Critically low 9.5-13.5 [facility] Comment on above: Performed By: #### C BC ####[facility] [address] [place] [address]Dr. Shahbaz Rogel PLT 216 103/ul Normal 150-450 [facility] Comment on above: Performed By: #### C BC ####[facility] [address]ewifu[address] [place] [id number]. Shahbaz Rogel RBC 5.36 106/ul Normal 4.20-5.40 [facility] Comment on above: Performed By: #### C BC ####[facility] [address]fof[address] [place] [id number]. Shahbaz Rogel WBC 4.2 103/ul Normal 4.0-11.0 [facility] Comment on above: Performed By: #### C BC ####[facility] [address] [place], [place] [address]Dr. Shahbaz Rogel FREE THYROXINE INDEX T7on FTI 2.92 Normal 1.30-4.50 [facility] Comment on above: Performed By: #### C MP, LIPID, T7, TSH ####[facility] [address]weth[address] [place] [address]Dr. Shahbaz Rogel T3U 37.0 % Normal 30.0-39.0 [facility] Comment on above: Performed By: #### C MP, LIPID, T7, TSH ####[facility] Aqzkswosvn[address] [place] [address]Dr. Shahbaz Rogel T4 [Mass/Vol] 7.90 ug/dL Normal 4.80-13.90 [facility] Comment on above: Performed By: #### C MP, LIPID, T7, TSH ####[facility] [address]whjbasc[address] [place] [address]Dr. Shahbaz Rogel GLYCOHEMOGLOBIN A1Con 2022 ADA RECOMMENDATION SEE BELOW Normal [facility] Comment on above: Result Comment: ADA RECOMMENDED LIMIT 4.0 - 6.0 ADA THERAPEUTIC TARGET < 7.0 ACTION SUGGESTED > 7.0 Performed By: #### A 1C ####[facility] [address]fa[address] [place] [address]Dr. Shahbaz Rogel Glucose [Mass/Vol] 120 mg/dL Normal [facility] Comment on above: Performed By: #### A 1C ####[facility] [address]dcmzownzz[address] [place] [address]Dr. Shahbaz Rogel HbA1c (Bld) [Mass fraction] 5.8 % Normal 4.5-6.2 [facility] Comment on above: Performed By: #### A 1C ####[facility] [address]wexq[address] [place] [address]Dr. Lilajarrod Juan F IRONon 11-01-2022 Iron [Mass/Vol] 54.0 ug/dL Normal 50.0-170.0 [facility] Comment on above: Performed By: #### I GRIS ####[facility] [address]ytcsni[address] [place] [address]Dr. Shahbaz Juan F LIPID PROFILEon 11-01-2022 CHOL-HDL RATIO NORM SEE BELOW Normal [facility] Comment on above: Result Comment: 3.3 - 4.4 LOW RISK 4.4 - 7.1 AVERAGE RISK 7.1 - 11.0 MODERATE RISK >11.0 HIGH RISK Performed By: #### C MP, LIPID, T7, TSH ####[facility] [address]ft[address] [place] [phone]. Shahbaz Rogel Cholesterol [Mass/Vol] 203 mg/dL Critically high <=200 [facility] Comment on above: Performed By: #### C MP, LIPID, T7, TSH ####[facility] Bsgxyeqdro[address] [place] [phone]. Shahbaz Rogel Cholesterol in HDL [Mass/Vol] 42 mg/dL Normal 40-[address] [facility] Comment on above: Performed By: #### C MP, LIPID, T7, TSH ####[facility] [address]gbyintyme[address] [place] [phone]. Lilajarrod Juan F Cholesterol in LDL [Mass/Vol] 121.4 mg/dL Normal [facility] Comment on above: Performed By: #### C MP, LIPID, T7, TSH ####[facility] [address]spummxhv[address] [place] [phone]. Shahbaz Juan F Cholesterol.total/Chol esterol in HDL [Mass ratio] 4.8 {ratio} Normal [facility] Comment on above: Performed By: #### C MP, LIPID, T7, TSH ####[facility] [address]rawieuwye[address] [place] [id number]. Lilajarrod Juan F HDL NORMAL > or = 60 mg/dl - LO W CARDIOVASCULAR RISK <40 mg/dl - HIGH CARDIOVASCULAR RISK Normal [facility] Comment on above: Performed By: #### C MP, LIPID, T7, TSH ####[facility] Kdbhtrqiek[address] [place] [id number]. Shahbaz Rogel LDL CALC NORMAL SEE BELOW Normal [facility] Comment on above: Result Comment: <100 mg/dl OPTIMAL 100 - 129 mg/dl NEAR OR ABOVE OPTIMAL 130 - 159 mg/dl BORDERLINE HIGH 160 - 189 mg/dl HIGH >190 mg/dl VERY HIGH Performed By: #### C MP, LIPID, T7, TSH ####[facility] [address]xaztztdi[address] [place] [address]Dr. Shahbaz Rogel Triglyceride [Mass/Vol] 198 mg/dL Critically high <=[address] [facility] Comment on above: Performed By: #### C MP, LIPID, T7, TSH ####[facility] [address]xtxungfy[address] [place] [address]Dr. Shahbaz Rogel VLDL CALC 39.6 mg/dL Normal [facility] Comment on above: Performed By: #### C MP, LIPID, T7, TSH ####[facility] Fsumbdcops[address] [place] [address]Dr. Shahbaz Rogel PROF 14(COMP METB)on 023 Albumin [Mass/Vol] 4.1 g/dL Normal 3.4-5.[address] [facility] Comment on above: Performed By: #### C MP, LIPID, T7, TSH ####[facility] Lrknvybeud[address] [place] [address]Dr. Shahbaz Rogle Albumin/Globulin [Mass ratio] 1.0 {ratio} Normal [facility] Comment on above: Performed By: #### C MP, LIPID, T7, TSH ####[facility] [address]llbq[address] [place] [address]Dr. Shahbaz Rogel ALP [Catalytic activity/Vol] 126 U/L Critically high 46-116 [facility] Comment on above: Performed By: #### C MP, LIPID, T7, TSH ####[facility] [address]ocflmrqt[address] [place] [address]Dr. Shahbaz Rogel ALT [Catalytic activity/Vol] 30 U/L Normal 14-59 [facility] Comment on above: Performed By: #### C MP, LIPID, T7, TSH ####[facility] Trcdvakeiu[address] [place] [address]Dr. Shahbaz Rogel Anion gap [Moles/Vol] 12.3 mmol/L Normal [facility] Comment on above: Performed By: #### C MP, LIPID, T7, TSH ####[facility] [address]qkblm[address] [place] [address]Dr. Shahbaz Rogel AST [Catalytic activity/Vol] 25 U/L Normal 15-37 [facility] Comment on above: Performed By: #### C MP, LIPID, T7, TSH ####[facility] [address]jbq[address]yff[address] [place] [address]Dr. Shahbaz Rogel Bilirubin [Mass/Vol] 0.5 mg/dL Normal 0.2-1.0 [facility] Comment on above: Performed By: #### C MP, LIPID, T7, TSH ####[facility] Sz[address]wh[address] [place], [place] [address]Dr. Shahbaz Rogel Calcium [Mass/Vol] 9.4 mg/dL Normal 8.5-10.1 [facility] Comment on above: Performed By: #### C MP, LIPID, T7, TSH ####[facility] Zcwdmjwcvq[address] [place] [address]Dr. Shahbaz Rogel Chloride [Moles/Vol] 104 mmol/L Normal 98-107 [facility] Comment on above: Performed By: #### C MP, LIPID, T7, TSH ####[facility] [address]zh[address] [place], [place] [address]Dr. Shahbaz Rogel CO2 [Moles/Vol] 29.6 mmol/L Normal 21.0-32.0 [facility] Comment on above: Performed By: #### C MP, LIPID, T7, TSH ####[facility] K[address]qmrmcjm[address] [place], [place] [address]Dr. Shahbaz Rogel Creatinine [Mass/Vol] 0.91 mg/dL Normal 0.55-1.02 [facility] Comment on above: Performed By: #### C MP, LIPID, T7, TSH ####[facility] [address]wkrguz[address] [place] [address]Dr. Shahbaz Rogel EGFR-AF CITIZEN OF [place] >60 Normal >=60 [facility] Comment on above: Performed By: #### C MP, LIPID, T7, TSH ####[facility] [address]tusbvduck[address] [place] [address]Dr. Shahbaz Rogel EGFR-NON AF CITIZEN OF [place] >60 Normal >=60 [facility] Comment on above: Performed By: #### C MP, LIPID, T7, TSH ####[facility] [address]jsx[address] [place] [address]Dr. Shahbaz Rogel Globulin (S) [Mass/Vol] 4.0 g/dL Normal [facility] Comment on above: Performed By: #### C MP, LIPID, T7, TSH ####[facility] [address]byomscnn[address] [place] [address]Dr. Shahbaz Rogel Glucose [Mass/Vol] 85 mg/dL Normal 74-106 [facility] Comment on above: Performed By: #### C MP, LIPID, T7, TSH ####[facility] [address]xmahojzlq[address] [place] [address]Dr. Shahbaz Rogel Potassium [Moles/Vol] 3.9 mmol/L Normal 3.5-5.1 [facility] Comment on above: Performed By: #### C MP, LIPID, T7, TSH ####[facility] Adwxwfjpdb[address] [place] [address]Dr. Shahbaz Rogel Protein [Mass/Vol] 8.1 g/dL Normal 6.4-8.2 [facility] Comment on above: Performed By: #### C MP, LIPID, T7, TSH ####[facility] [address]udx[address] [place], [place] [address]Dr. Shahbaz Rogel Sodium [Moles/Vol] 142 mmol/L Normal 136-145 [facility] Comment on above: Performed By: #### C MP, LIPID, T7, TSH ####[facility] [address]qsym[address]rlj[address] [place] [address]Dr. Shahbaz Rogel Urea nitrogen [Mass/Vol] 9.0 mg/dL Normal 7.0-18.0 [facility] Comment on above: Performed By: #### C MP, LIPID, T7, TSH ####[facility] [address]yrqub[address] [place] [address]Dr. Shahbaz Rogel Urea nitrogen/Creatinine [Mass ratio] 9.9 mg/mg Normal [facility] Comment on above: Performed By: #### C MP, LIPID, T7, TSH ####[facility] [address]mp[address]ob[address] [place] [address]Dr. Shahbaz Rogel TSHon 11-01-2022 TSH 0.045 uIU/mL Critically low 0.358-3.74 0 [facility] Comment on above: Performed By: #### C MP, LIPID, T7, TSH ####[facility] [address] [place], [place] [address]Fm. Shahbaz Rogel XR HUMERUS LT MIN 2Von 10-01 XR HUMERUS LT MIN 2V Normal [facility] XR LSPINE 2_3 VIEWSon 2021 XR LSPINE 2_3 VIEWS Normal [facility] XR CHEST 1 Von 08-25-2022 XR CHEST 1 V Normal [facility] ACID FAST SMEAR AND CXon Acid Fast Culture Negative Normal [facility] Comment on above: Result Comment: No a ninaf fast bacilli isolated after 6 weeks. Performed By: #### A FB ####[facility] [address] [place] [address]Dr. Shahbaz Rogel Acid Fast Smear Negative Normal [facility] Comment on above: Performed By: #### A FB ####[facility] [address]jugk[address] [place] [id number]. Shahbaz Rogel AF[employer] Specimen Processing Concentration Normal [facility] Comment on above: Performed By: #### A FB ####[facility] [address]ks[address]faur[address] [place] [address]Dr. Shahbaz Rogel Bacteria identified Anaer cx Nom (Unsp spec)Ordered By: Rodolfo Harley on 08-13-2022 Anaerobic microbial culture No Anaerobes Isolated 3 Days [facility] Basophils Auto (Bld) [#/Vol] Ordered By: Rodolfo Harley on 08-12-2022 Basophils (Bld) [#/Vol] 0.0 10*3/uL 0.0-0.2 [facility] Basophils/100 WBC Auto (Bld) Ordered By: Rodolfo Harley on 08-12-2022 Basophils/100 WBC (Bld) 0.4 % . [facility] Creatinine and Glomerular fi ltration rate.predicted panel (S/P/Bld)Ordered By: Rodolfo Harley on 08-12-2022 Creatinine [Mass/Vol] 0.74 mg/dL 0.44-1.03 [facility] Eosinophils Auto (Bld) [#/Vo l]Ordered By: Rodolfo Harley on 08-12-2022 Eosinophils (Bld) [#/Vol] 0.0 10*3/uL 0.0-0.45 [facility] Eosinophils/100 WBC Auto (Bl d)Ordered By: Rodolfo Harley on 08-12-2022 Eosinophils/100 WBC (Bld) 0.0 % . [facility] Erythrocyte distribution wid th Auto (RBC) [Ratio]Ordered By: Rodolfo Harley on 08-12-2022 Erythrocyte distribution width (RBC) [Ratio] 14.2 % 11.9-15.3 [facility] Estimated glomerular filtrat ion rate (GFR) non- AmericanOrdered By: Rodolfo Harley on 08-12-2022 GFR/1.73 sq M.predicted among non-blacks MDRD (S/P/Bld) [Vol rate/Area] > 60 mL/Min [facility] Hematocrit Auto (Bld) [Volum e fraction]Ordered By: Rodolfo Harley on 08-12-2022 Hematocrit (Bld) [Volume fraction] 38.0 % 34.0-46.4 [facility] Hemoglobin [Mass/volume] in BloodOrdered By: Rodolfo Harley on 08-12-2022 Hemoglobin (Bld) [Mass/Vol] 12.5 g/dL 11.8-15.4 [facility] Laboratory - Hematology and Cell countsOrdered By: Rodolfo Harley on 08-12-2022 Nucleated RBC/100 WBC (Bld) [Ratio] 0.1 % 0-0.5 [facility] Leukocytes [#/volume] in Blo od by Automated countOrdered By: Rodolfo Harley on 08-12-2022 WBC (Bld) [#/Vol] 5.8 10*3/uL 4.5-11.0 [facility] Lymphocytes Auto (Bld) [#/Vo l]Ordered By: Rodolfo Harley on 08-12-2022 Lymphocytes (Bld) [#/Vol] 0.7 10*3/uL 1.00-4.8 [facility] Lymphocytes/100 WBC Auto (Bl d)Ordered By: Rodolfo Harley on 08-12-2022 Lymphocytes/100 WBC (Bld) 11.4 % . [facility] MCH Auto (RBC) [Entitic mass ]Ordered By: Rodolfo Harley on 08-12-2022 MCH (RBC) [Entitic mass] 28.1 pg 24.7-34.3 [facility] MCHC Auto (RBC) [Mass/Vol]Or dered By: Rodolfo Harley on 08-12-2022 MCHC (RBC) [Mass/Vol] 32.9 g/dL 32.0-35.0 [facility] MCV Auto (RBC) [Entitic vol] Ordered By: Rodolfo Harley on 08-12-2022 MCV (RBC) [Entitic vol] 85.4 fL 80-100 [facility] Monocytes Auto (Bld) [#/Vol] Ordered By: Rodolfo Harley on 08-12-2022 Monocytes (Bld) [#/Vol] 0.3 10*3/uL 0.0-0.8 [facility] Monocytes/100 WBC Auto (Bld) Ordered By: Rodolfo Harley on 08-12-2022 Monocytes/100 WBC (Bld) 4.8 % . [facility] Neutrophils Auto (Bld) [#/Vo l]Ordered By: Rodolfo Harley on 08-12-2022 Neutrophils (Bld) [#/Vol] 4.8 10*3/uL 1.8-7.7 [facility] Neutrophils/100 WBC Auto (Bl d)Ordered By: Rodolfo Harley on 08-12-2022 Neutrophils/100 WBC (Bld) 83.4 % . [facility] No Panel InformationOrdered By: Rodolfo Harley on 08-12-2022 Estimated GFR () > 60 mL/Min [facility] Comment on above: GFR estimated refere nce range: According to KDOQI guidelines, <60 ml/min/1.73m2 is sufficient to diagnose a patient with chronic kidney disease. Pharmacy Creatinine Clearance (Chem 59.45 [facility] Platelet mean volume Auto (B ld) [Entitic vol]Ordered By: Rodolfo Harley on 08-12-2022 Platelet mean volume (Bld) [Entitic vol] 7.9 fL 6.3-10.7 [facility] Platelets Auto (Bld) [#/Vol] Ordered By: Rdoolfo Harley on 08-12-2022 Platelets (Bld) [#/Vol] 196 10*3/uL 150-450 [facility] RBC Auto (Bld) [#/Vol]Ordere d By: Rodolfo Harley on 08-12-2022 RBC (Bld) [#/Vol] 4.45 10*6/uL 3.60-5.00 [facility] Serum or plasma anion gap de terminationOrdered By: Rodolfo Harley on 08-12-2022 Anion gap [Moles/Vol] 7.5 mmol/L 6.0-15.0 [facility] Serum or plasma calcium dagoberto urement (mass/volume)Ordered By: Rodolfo Harley on 08-12-2022 Calcium [Mass/Vol] 8.7 mg/dL 8.2-10.2 [facility] Serum or plasma chloride anahy surement (moles/volume)Ordered By: Rodolfo Harley on 08-12-2022 Chloride [Moles/Vol] 108 mmol/L 95-114 [facility] Serum or plasma glucose dagoberto urement (mass/volume)Ordered By: Rodolfo Harley on 08-12-2022 Glucose [Mass/Vol] 133 mg/dL 70-100 [facility] Comment on above: ADA recommended refe rence rangeRandom Glucose Reference Range is dependent on time and content of last meal. Glucose of more than 200 mg/dL in a nonstressed, ambulatory subject supports the diagnosis of Diabetes Mellitus. Serum or plasma potassium me asurement (moles/volume)Ordered By: Rodolfo Harley on 08-12-2022 Potassium [Moles/Vol] 3.7 mmol/L 3.5-5.1 [facility] Serum or plasma sodium measu rement (moles/volume)Ordered By: Rodolfo Harley on 08-12-2022 Sodium [Moles/Vol] 139 mmol/L 136-146 [facility] Serum or plasma total carbon dioxide measurement (moles/volume)Ordered By: Rodolfo Harley on 08-12-2022 CO2 [Moles/Vol] 27.2 mmol/L 22.0-30.0 [facility] Serum or plasma urea nitroge n measurement (mass/volume)Ordered By: Rodolfo Harley on 08-12-2022 Urea nitrogen [Mass/Vol] 14 mg/dL 9-23 [facility] ABO and Rh group post transf usion reaction Nom (Bld)Ordered By: Rodolfo Harley on 08-10-2022 Microscopic observation Gram stain Nom (Unsp spec) [facility] [employer] cultureOrdered By: Sissy Harley on 08-10-2022 Mycobacterium sp identified Org specific cx Nom (Unsp spec) [facility] [employer] smearOrdered By: Rodolfo Harley on 08-10-2022 Microscopic observation Smear Nom (Unsp spec) [facility] Aerobic cultureOrdered By: Margie Harley on 08-10-2022 Bacteria identified Aer cx Nom (Unsp spec) No Growth 2 Days [facility] Anaerobic cultureOrdered By: Rodolfo Harley on 08-10-2022 Bacteria identified Anaer cx Nom (Unsp spec) No Anaerobes Isolated 3 Days [facility] Arterial blood standard base excess determination by calculationOrdered By: Rodolfo Harley on 08-10-2022 Base excess standard Calc (BldA) [Moles/Vol] 5 mmol/L -2-3 [facility] Blood carbon dioxide, total measurement by calculation (moles/volume)Ordered By: Rodolfo Harley on 08-10-2022 CO2 Calc (Bld) [Moles/Vol] 30 mmol/L 23-[address] [facility] [address] biopsyOrdered By: Rodolfo Harley on 08-10-2022 Hematocrit (Bld) [Volume fraction] 40.0 % 38.0-51.0 [facility] Fungal cultureOrdered By: Rolanda Harley on 08-10-2022 Fungus identified Cx Nom (Unsp spec) [facility] Glucose Glucometer (BldC) [M ass/Vol]Ordered By: Rodolfo Harley on 08-10-2022 Glucose [Mass/Vol] 126 mg/dL 70-105 [facility] Gram stain for investigation of transfusion reactionOrdered By: Rodolfo Harley on 08-10-2022 Microscopic observation Gram stain Nom (Unsp spec) [facility] Hemoglobin Calc (Bld) [Mass/ Vol]Ordered By: Rodolfo Harley on 08-10-2022 Hemoglobin (Bld) [Mass/Vol] 13.6 g/dL 12.0-17.0 [facility] Monocyte %Ordered By: Jean Harley on 08-10-2022 Monocyte % 39.9 mm[Hg] 35-51 [facility] Monocyte % 45 mm[Hg] 80-105 [facility] No Panel InformationOrdered By: Rodolfo Harley on 08-10-2022 Chlamydia psittaci Antibodies <1:10 Neg:<1:10 [facility] Comment on above: This test was develo ped and its performance characteristicsdetermined by [employer]. It has not been cleared or approvedby the Food and Drug Administration. The FDA hasdetermined that such clearance or approval is notnecessary.Performed at: [address] [id number] Director: Shelly Vargas MD, Phone: [phone] Potassium (Bld) [Moles/Vol]O rdered By: Rodolfo Harley on 08-10-2022 Potassium [Moles/Vol] 3.8 mmol/L 3.5-4.9 [facility] Sodium (Bld) [Moles/Vol]Orde red By: Rodolfo Harley on 08-10-2022 Sodium [Moles/Vol] 141 mmol/L 138-146 [facility] Whole blood bicarbonate dagoberto urementOrdered By: Rodolfo Harley on 08-10-2022 HCO3 (Bld) [Moles/Vol] 29.1 mmol/L 22.0-28.[address] [facility] Whole blood ionized calcium measurement (moles/volume)Ordered By: Rodolfo Harley on 08-10-2022 Calcium.ionized (Bld) [Moles/Vol] 1280 mmol/L 1.12-1.32 [facility] Whole blood oxygen saturatio n measurementOrdered By: Rodolfo Harley on 08-10-2022 Oxygen saturation in Blood 84 % 95-98 [facility] Comment on above: Reference ranges ref lect baseline specimens only Whole blood pHOrdered By: Rolanda lj Pringlemarilee on 08-10-2022 pH (Bld) 7.470 Units 7.31-7.45 [facility] Urine culture routineOrdered By: Rodolfosharona Harley on 08-07-2022 Bacteria identified Cx Nom (U) 2 Days [facility] Activated partial thrombopla stin time (aPTT) in platelet poor plasma by coagulation aOrdered By: Roodlfo Harley on 08-05-2022 aPTT Coag (PPP) [Time] 35.9 s 25.1-36.5 Fi relaFormerly [facility] Basophils Auto (Bld) [#/Vol] Ordered By: Rodolfo Harley on 08-05-2022 Basophils (Bld) [#/Vol] 0.0 10*3/uL 0.0-0.2 [facility] Basophils/100 WBC Auto (Bld) Ordered By: Rodolfo Harley on 08-05-2022 Basophils/100 WBC (Bld) 0.5 % . [facility] Body fluid albumin measureme nt (mass/volume)Ordered By: Rodolfo Harley on 08-05-2022 Albumin (Body fld) [Mass/Vol] 3.8 g/dL 3.2-5.5 [facility] COVID-19 Positive/NegativeOr dered By: Rodolfo Harley on 08-05-2022 SARS-CoV-2 (COVID-19) N gene PAVAN+probe Ql (Resp) Negative Negative [facility] Comment on above: Testing for SARS-CoV -2 by RT-PCRThis test was developed and its performance characteristics determined by [employer] and validated at the [facility]. This test has not been FDA [...] on 08-05-2022 Creatinine [Mass/Vol] 0.97 mg/dL 0.44-1.03 [facility] Eosinophils Auto (Bld) [#/Vo l]Ordered By: Rodolfo Harley on 08-05-2022 Eosinophils (Bld) [#/Vol] 0.2 10*3/uL 0.0-0.45 [facility] Eosinophils/100 WBC Auto (Bl d)Ordered By: Rodolfo Harley on 08-05-2022 Eosinophils/100 WBC (Bld) 4.9 % . [facility] Erythrocyte distribution wid th Auto (RBC) [Ratio]Ordered By: Rodolfo Harley on 08-05-2022 Erythrocyte distribution width (RBC) [Ratio] 14.5 % 11.9-15.3 [facility] Estimated glomerular filtrat ion rate (GFR) non- AmericanOrdered By: Rodolfo Harley on 08-05-2022 GFR/1.73 sq M.predicted among non-blacks MDRD (S/P/Bld) [Vol rate/Area] 59 mL/Min [facility] FUNGAL CULTUREon 08-05-2022 Fungus (Mycology) Culture Final report Abnormal [facility] Comment on above: Performed By: #### C XFUN ####[facility] [address] [place] [address]Dr. Shahbaz Rogel Fungus Stain Final report Normal [facility] Comment on above: Performed By: #### C XFUN ####[facility] [address] [place] [address]Dr. Shahbaz Rogel Result 1 Comment Abnormal [facility] Comment on above: Result Comment: MILADYS/ Calcofluor preparation: no fungus observed. Performed By: #### C XFUN ####[facility] [address] [place], [place] [address]XaChen Rogel Result Comment: Aspe rgillus versicolor Result 2 Penicillium species Abnormal [facility] Comment on above: Performed By: #### C XFUN ####[facility] [address] [place] [id number] Rogel Globulin Calc (S) [Mass/Vol] Ordered By: Rodolfo Harley on 08-05-2022 Globulin (S) [Mass/Vol] 2.9 g/dL [facility] Hematocrit Auto (Bld) [Volum e fraction]Ordered By: Rodolfo Harley on 08-05-2022 Hematocrit (Bld) [Volume fraction] 43.3 % 34.0-46.4 [facility] Hemoglobin [Mass/volume] in BloodOrdered By: Rodolfo Harley on 08-05-2022 Hemoglobin (Bld) [Mass/Vol] 14.3 g/dL 11.8-15.4 [facility] Laboratory - CoagulationOrde red By: Rodolfo Harley on 08-05-2022 PT Coag (PPP) [Time] 12.4 s 9.0-12.9 [facility] Laboratory - Hematology and Cell countsOrdered By: Rodolfo Harley on 08-05-2022 Nucleated RBC/100 WBC (Bld) [Ratio] 0.0 % 0-0.5 [facility] Leukocytes [#/volume] in Blo od by Automated countOrdered By: Rodolfo Harley on 08-05-2022 WBC (Bld) [#/Vol] 3.4 10*3/uL 4.5-11.0 [facility] Lymphocytes Auto (Bld) [#/Vo l]Ordered By: Rodolfo Harley on 08-05-2022 Lymphocytes (Bld) [#/Vol] 0.9 10*3/uL 1.00-4.8 [facility] Lymphocytes/100 WBC Auto (Bl d)Ordered By: Rodolfo Harley on 08-05-2022 Lymphocytes/100 WBC (Bld) 27.2 % . [facility] MCH Auto (RBC) [Entitic mass ]Ordered By: Rodolfo Harley on 08-05-2022 MCH (RBC) [Entitic mass] 28.4 pg 24.7-34.3 [facility] MCHC Auto (RBC) [Mass/Vol]Or dered By: Rodolfo Harley on 08-05-2022 MCHC (RBC) [Mass/Vol] 33.1 g/dL 32.0-35.0 [facility] MCV Auto (RBC) [Entitic vol] Ordered By: Rodolfo Harley on 08-05-2022 MCV (RBC) [Entitic vol] 85.9 fL 80-100 [facility] Monocytes Auto (Bld) [#/Vol] Ordered By: Rodoflo Harley on 08-05-2022 Monocytes (Bld) [#/Vol] 0.3 10*3/uL 0.0-0.8 [facility] Monocytes/100 WBC Auto (Bld) Ordered By: Rodolfo Harley on 08-05-2022 Monocytes/100 WBC (Bld) 7.5 % . [facility] Neutrophils Auto (Bld) [#/Vo l]Ordered By: Rodolfo Harley on 08-05-2022 Neutrophils (Bld) [#/Vol] 2.0 10*3/uL 1.8-7.7 [facility] Neutrophils/100 WBC Auto (Bl d)Ordered By: Rodolfo Harley on 08-05-2022 Neutrophils/100 WBC (Bld) 59.9 % . [facility] No Panel InformationOrdered By: Rodolfo Harley on 08-05-2022 Estimated GFR () > 60 mL/Min [facility] Comment on above: GFR estimated refere nce range: According to KDOQI guidelines, <60 ml/min/1.73m2 is sufficient to diagnose a patient with chronic kidney disease. Pharmacy Creatinine Clearance (Chem N/A [facility] Platelet mean volume Auto (B ld) [Entitic vol]Ordered By: Rodolfo Harley on 08-05-2022 Platelet mean volume (Bld) [Entitic vol] 8.1 fL 6.3-10.7 [facility] Platelet poor plasma interna tional normalized ratio (INR) by coagulation assay (relatOrdered By: Rodolfo Harley on 08-05-2022 INR Coag (PPP) [Relative time] 1.1 {INR} [facility] Comment on above: INR Therapeutic Rang [...] 08-05-2022 Platelets (Bld) [#/Vol] 243 10*3/uL 150-450 [facility] Protein [Mass/volume] in Ser um or PlasmaOrdered By: Rodolfo Harley on 08-05-2022 Protein [Mass/Vol] 6.7 g/dL 6.1-7.9 [facility] RBC Auto (Bld) [#/Vol]Ordere d By: Rodolfo Harley on 08-05-2022 RBC (Bld) [#/Vol] 5.04 10*6/uL 3.60-5.00 [facility] Serum or plasma alanine snyder otransferase measurement without P-5'-P (enzymatic activiOrdered By: Rodolfo Harley on 08-05-2022 ALT No additional P-5'-P [Catalytic activity/Vol] 14 U/L 1060 [facility] Serum or plasma albumin/glob ulin mass ratioOrdered By: Rodolfo Harley on 08-05-2022 Albumin/Globulin [Mass ratio] 1.3 {ratio} [facility] Serum or plasma alkaline sruthi sphatase measurement (enzymatic activity/volume)Ordered By: Rodolfo Harley on 08-05-2022 ALP [Catalytic activity/Vol] 91 U/L 32-92 [facility] Serum or plasma anion gap de terminationOrdered By: Rodolfo Harley on 08-05-2022 Anion gap [Moles/Vol] 14.3 mmol/L 6.0-15.0 [facility] Serum or plasma aspartate am inotransferase measurement (enzymatic activity/volume)Ordered By: Rodolfo Harley on 08-05-2022 AST [Catalytic activity/Vol] 21 U/L 10-42 [facility] Serum or plasma calcium dagoberto urement (mass/volume)Ordered By: Rodolfo Harley on 08-05-2022 Calcium [Mass/Vol] 9.5 mg/dL 8.2-10.2 [facility] Serum or plasma chloride anahy surement (moles/volume)Ordered By: Rodolfo Harley on 08-05-2022 Chloride [Moles/Vol] 102 mmol/L 95-114 [facility] Serum or plasma glucose dagoberto urement (mass/volume)Ordered By: Rodolfo Harley on 08-05-2022 Glucose [Mass/Vol] 76 mg/dL 70-100 [facility] Comment on above: ADA recommended refe rence rangeRandom Glucose Reference Range is dependent on time and content of last meal. Glucose of more than 200 mg/dL in a nonstressed, ambulatory subject supports the diagnosis of Diabetes Mellitus. Serum or plasma potassium me asurement (moles/volume)Ordered By: Rodolfo Harley on 08-05-2022 Potassium [Moles/Vol] 3.8 mmol/L 3.5-5.1 [facility] Serum or plasma sodium measu rement (moles/volume)Ordered By: Rodolfo Harley on 08-05-2022 Sodium [Moles/Vol] 138 mmol/L 136-146 [facility] Serum or plasma total biliru bin measurement (mass/volume)Ordered By: Rodolfo Harley on 08-05-2022 Bilirubin [Mass/Vol] 0.7 mg/dL 0.3-1.2 [facility] Serum or plasma total carbon dioxide measurement (moles/volume)Ordered By: Rodolfo Harley on 08-05-2022 CO2 [Moles/Vol] 25.5 mmol/L 22.0-30.0 [facility] Serum or plasma urea nitroge n measurement (mass/volume)Ordered By: Rodolfo Harley on 08-05-2022 Urea nitrogen [Mass/Vol] 12 mg/dL 06-24 [facility] Urine culture routineOrdered By: Rodolfo Harley on 08-05-2022 Bacteria identified Cx Nom (U) 2 Days [facility] XR ANKLE LT MIN 3 Von 10-29- 2022 XR ANKLE LT MIN 3 V Normal [facility] BNPon 07-06-2022 Natriuretic peptide B (Bld) [Mass/Vol] 843.0 pg/mL Normal <=900.0 [facility] Comment on above: Performed By: #### B REDUCER, CRP, CMP ####[facility] [address] [place] [address]Dr. Shahbaz Rogel CBC W MANUAL DIFFon 07-06-20 22 ATYPICAL LYMPH # Normal [facility] Comment on above: Performed By: #### C CAIN ####[facility] [address] [place], [place] [address]Dr. Shahbaz Rogel ATYPICAL LYMPH % Normal [facility] Comment on above: Performed By: #### C CAIN ####[facility] [address] [place], [place] [address]Dr. Shahbaz Rogel BAND # 0.0 103/ul Normal 0.0-0.3 [facility] Comment on above: Performed By: #### C CAIN ####[facility] [address] [place], [place] [address]Dr. Shahbaz Rogel BAND % 0 % Normal 0-5 [facility] Comment on above: Performed By: #### C CAIN ####[facility] [address] [place], [place] [address]Dr. Shahbaz Rogel BASOM # 0.00 103/ul Normal 0.00-0.10 [facility] Comment on above: Performed By: #### C CAIN ####[facility] [address] [place], [place] [address]Dr. Shahbaz Rogel BASOM % 0.0 % Critically low 0.2-2.0 [facility] Comment on above: Performed By: #### C CAIN ####[facility] [address] [place], [place] [address]Dr. Lilalan Rogel BLAST # Normal [facility] Comment on above: Performed By: #### C CAIN ####[facility] [address] [place], [place] [address]Dr. Lilalan Rogel BLAST % Normal [facility] Comment on above: Performed By: #### C CAIN ####[facility] [address] [place] [id number]. Shahbaz Rogel CORRECTED WBC Normal 4.0-11.0 [facility] Comment on above: Performed By: #### C CAIN ####[facility] [address] [place] [id number]. Shahbaz Rogel EOS # 0.00 103/ul Normal 0.00-0.70 [facility] Comment on above: Performed By: #### C CAIN ####[facility] [address] [place] [id number]. Shahbaz Rogel EOS% 0.0 % Critically low 0.9-7.0 [facility] Comment on above: Performed By: #### C CAIN ####[facility] [address] [place] [id number]. Shahbaz Rogel HCT 40.3 % Normal 36.0-48.0 [facility] Comment on above: Performed By: #### C CAIN ####[facility] [address] [place] [id number]. Shahbaz Rogel HGB 12.7 g/dl Normal 12.0-16.0 [facility] Comment on above: Performed By: #### C CAIN ####[facility] [address] [place] [address]Dr. Shahbaz Rogel LYMPHM # 0.41 103/ul Critically low 1.20-3.80 [facility] Comment on above: Performed By: #### C CAIN ####[facility] [address] [place] [id number]. Shahbaz Rogel LYMPHM% 7.0 % Critically low 20.5-60.0 [facility] Comment on above: Performed By: #### C CAIN ####[facility] [address] [place] [id number]. Shahbaz Rogel MCH 28.0 pg Normal 26.7-34.0 [facility] Comment on above: Performed By: #### C CAIN ####[facility] [address] [place] [id number]. Shahbaz Rogel MCHC 31.5 g/dl Normal 29.9-35.2 [facility] Comment on above: Performed By: #### C CAIN ####[facility] [address] [place] [id number]. Shahbaz Rogel MCV 89.0 fL Normal 81.0-99.0 [facility] Comment on above: Performed By: #### C CAIN ####[facility] [address] [place] [id number]. Shahbaz Rogel METAMYELOCYTE # Normal [facility] Comment on above: Performed By: #### C CAIN ####[facility] [address] [place] [address]Dr. Shahbaz Rogel METAMYELOCYTE % Normal [facility] Comment on above: Performed By: #### C CAIN ####[facility] [address] [place], [place] [address]Dr. Shahbaz Rogel MONOM# 0.00 103/ul Critically low 0.30-0.[address] [facility] Comment on above: Performed By: #### C CAIN ####[facility] [address] [place] [address]Dr. Shahbaz Rogel MONOM% 0.0 % Critically low 1.7-12.[address] [facility] Comment on above: Performed By: #### C CAIN ####[facility] [address]hib[address] [place] [address]Dr. Shahbaz Rogel MPV 9.8 fL Normal 9.5-13.5 [facility] Comment on above: Performed By: #### C CAIN ####[facility] [address] [place] [id number]. Shahbaz Rogel MYELOCYTE # Normal [facility] Comment on above: Performed By: #### C CAIN ####[facility] [address] [place] [address]Dr. Shahbaz Rogel MYELOCYTE % Normal [facility] Comment on above: Performed By: #### C CAIN ####[facility] [address] [place] [address]Dr. Shahbaz Rogel NRBC Normal [facility] Comment on above: Performed By: #### C CAIN ####[facility] [address] [place] [id number]. Shahbaz Rogel PLT 187 103/ul Normal 150-450 [facility] Comment on above: Performed By: #### C CAIN ####[facility] [address] [place] [id number]. Shahbaz Rogel RBC 4.53 106/ul Normal 4.20-5.[address] [facility] Comment on above: Performed By: #### C CAIN ####[facility] [address] [place] [id number]. Shahbaz Rogel RDW 13.3 % Normal 11.0-15.[address] [facility] Comment on above: Performed By: #### C CAIN ####[facility] [address] [place] [id number]. Shahbaz Rogel SEG # 5.49 103/ul Normal 1.40-6.50 [facility] Comment on above: Performed By: #### C CAIN ####[facility] [address] [place] [id number]. Shahbaz Rogel SEG % 93.0 % Critically high 43.0-75.[address] [facility] Comment on above: Performed By: #### C CAIN ####[facility] [address]yc[address] [place] [id number]. Shahbaz Rogel WBC 5.9 103/ul Normal 4.0-11.[address] [facility] Comment on above: Performed By: #### C CAIN ####[facility] [address] [place] [phone]. Shahbaz Rogel CRPon 07-06-2022 CRP [Mass/Vol] mg/L Normal <=1.[address] [facility] Comment on above: Performed By: #### B REDUCER, CRP, CMP ####[facility] [address] [place] [id number]. Lilajarrod Rogel PROF 14(COMP METB)on 022 Albumin [Mass/Vol] 3.4 g/dL Normal 3.4-5.[address] [facility] Comment on above: Performed By: #### B REDUCER, CRP, CMP ####[facility] [address] [place] [address]Dr. Shahbaz Rogel Albumin/Globulin [Mass ratio] 1.0 {ratio} Normal [facility] Comment on above: Performed By: #### B REDUCER, CRP, CMP ####[facility] [address]tteh[address] [place], [place] [address]Dr. Shahbaz Rogel ALP [Catalytic activity/Vol] 92 U/L Normal 46-[address] [facility] Comment on above: Performed By: #### B REDUCER, CRP, CMP ####[facility] [address]ffdnoosjn[address] [place], [place] [address]Dr. Shahbaz Rogel ALT [Catalytic activity/Vol] 21 U/L Normal 14-[address] [facility] Comment on above: Performed By: #### B REDUCER, CRP, CMP ####[facility] [address]xh[address] [place], [place] [address]Dr. Shahbaz Rogel Anion gap [Moles/Vol] 13.4 mmol/L Normal [facility] Comment on above: Performed By: #### B REDUCER, CRP, CMP ####[facility] [address]tsclgmxxb[address] [place], [place] [address]Dr. Shahbaz Rogel AST [Catalytic activity/Vol] 16 U/L Normal 15-[address] [facility] Comment on above: Performed By: #### B REDUCER, CRP, CMP ####[facility] [address]xslrd[address] [place] [address]Dr. Shahbaz Rogel Bilirubin [Mass/Vol] 0.2 mg/dL Normal 0.2-1.0 [facility] Comment on above: Performed By: #### B REDUCER, CRP, CMP ####[facility] [address]cnqnpoyd[address] [place], [place] [address]Dr. Shahbaz Rogel Calcium [Mass/Vol] 9.3 mg/dL Normal 8.5-10.[address] [facility] Comment on above: Performed By: #### B REDUCER, CRP, CMP ####[facility] [address]xszt[address] [place], [place] [address]Dr. Shahbaz Rogel Chloride [Moles/Vol] 105 mmol/L Normal 98-107 [facility] Comment on above: Performed By: #### B REDUCER, CRP, CMP ####[facility] T[address]fgczpin[address] [place], [place] [address]Dr. Shahbaz Rogel CO2 [Moles/Vol] 23.2 mmol/L Normal 21.0-32.[address] [facility] Comment on above: Performed By: #### B REDUCER, CRP, CMP ####[facility] [address]fokgb[address] [place], [place] [address]Dr. Shahbaz Rogel Creatinine [Mass/Vol] 1.23 mg/dL Critically high 0.55-1.[address] [facility] Comment on above: Performed By: #### B REDUCER, CRP, CMP ####[facility] X[address]zti[address] [place], [place] [address]Dr. Shahbaz Rogel EGFR-AF CITIZEN [place] 55 mL/min/1.73m2 Critically low >=[address] [facility] Comment on above: Performed By: #### B REDUCER, CRP, CMP ####[facility] [address] [place], [place] [address]Dr. Shahbaz Rogel EGFR-NON AF CITIZEN OF [place] 45 mL/min/1.73m2 Critically low >=60 [facility] Comment on above: Performed By: #### B REDUCER, CRP, CMP ####[facility] [address]uvqde[address] [place], [place] [address]Dr. Shahbaz Rogel Globulin (S) [Mass/Vol] 3.3 g/dL Normal [facility] Comment on above: Performed By: #### B REDUCER, CRP, CMP ####[facility] [address] [place], [place] [address]Dr. Shahbaz Rogel Glucose [Mass/Vol] 171 mg/dL Critically high 74-106 [facility] Comment on above: Performed By: #### B REDUCER, CRP, CMP ####[facility] [address]wevozyvp[address] [place], [place] [address]Dr. Shahbaz Rogel Potassium [Moles/Vol] 3.6 mmol/L Normal 3.5-5.1 [facility] Comment on above: Performed By: #### B REDUCER, CRP, CMP ####[facility] [address] [place] [address]Dr. Shahbaz Rogel Protein [Mass/Vol] 6.7 g/dL Normal 6.4-8.2 [facility] Comment on above: Performed By: #### B REDUCER, CRP, CMP ####[facility] [address] [place], [place] [address]Dr. Shahbaz Rogel Sodium [Moles/Vol] 138 mmol/L Normal 136-145 [facility] Comment on above: Performed By: #### B REDUCER, CRP, CMP ####[facility] [address]nuaph[address] [place], [place] [address]Dr. Shahbaz Rogel Urea nitrogen [Mass/Vol] 21.0 mg/dL Critically high 7.0-18.0 [facility] Comment on above: Performed By: #### B REDUCER, CRP, CMP ####[facility] [address] [place], [place] [address]Dr. Shahbaz Rogel Urea nitrogen/Creatinine [Mass ratio] 17.1 mg/mg Normal [facility] Comment on above: Performed By: #### B REDUCER, CRP, CMP ####[facility] [address] [place], [place] [address]Dr. Shahbaz Rogel XR CHEST 2 Von 07-06-2022 XR CHEST 2 V Normal [facility] BNPon 07-05-2022 Natriuretic peptide B (Bld) [Mass/Vol] 83.0 pg/mL Normal <=900.0 [facility] Comment on above: Performed By: #### C RP, CMP, BNP ####[facility] [address]se[address] [place], [place] [address]Dr. Shahbaz Rogel CBC AUTO DIFFon 07-05-2022 BASO # 0.0 103/ul Normal 0.0-0.1 [facility] Comment on above: Performed By: #### C BC ####[facility] [address] [place], [place] [address]Dr. Shahbaz Juan F Basophils/100 WBC (Bld) 0.4 % Normal 0.2-2.0 [facility] Comment on above: Performed By: #### C BC ####[facility] [address] [place] [address]Dr. Shahbaz Rogel EO # 0.1 103/ul Normal 0.0-0.7 [facility] Comment on above: Performed By: #### C BC ####[facility] [address] [place], [place] [address]Dr. Lilajarrod Rogel Eosinophils/100 WBC (Bld) 2.9 % Normal 0.9-7.[address] [facility] Comment on above: Performed By: #### C BC ####[facility] [address]azon[address] [place], [place] [address]Dr. Lilajarrod Rogel Erythrocyte distribution width (RBC) [Ratio] 13.4 % Normal 11.0-15.0 [facility] Comment on above: Performed By: #### C BC ####[facility] [address] [place], [place] [address]Dr. Lilajarrod Rogel Hematocrit (Bld) [Volume fraction] 41.7 % Normal 36.0-48.[address] [facility] Comment on above: Performed By: #### C BC ####[facility] [address] [place], [place] [address]Dr. Shahbaz Rogel Hemoglobin (Bld) [Mass/Vol] 12.9 g/dL Normal 12.0-16.0 [facility] Comment on above: Performed By: #### C BC ####[facility] [address]jcly[address] [place], [place] [address]Dr. Shahbaz Rogel IG # 0.00 10e3/ul Normal 0.00-0.03 [facility] Comment on above: Performed By: #### C BC ####[facility] [address]wtzgc[address] [place], [place] [address]Dr. Lilajarrod Rogel IG % 0.0 % Normal 0.0-0.5 [facility] Comment on above: Performed By: #### C BC ####[facility] [address] [place], [place] [address]DrChen Rogel LYMPH # 1.5 103/ul Normal 1.2-3.8 [facility] Comment on above: Performed By: #### C BC ####[facility] [address] [place] [address]Dr. Shahbaz Rogel Lymphocytes/100 WBC (Bld) 32.9 % Normal 20.5-60.[address] [facility] Comment on above: Performed By: #### C BC ####[facility] [address] [place] [address]Dr. Shahbaz Rogel MANUAL DIFF REQ NO Normal [facility] Comment on above: Performed By: #### C BC ####[facility] [address]ac[address] [place] [id number]. Shahbaz Rogel MCH (RBC) [Entitic mass] 28.0 pg Normal 26.7-34.0 [facility] Comment on above: Performed By: #### C BC ####[facility] [address]bi[address] [place], [place] [address]Dr. Shahbaz Rogel MCHC (RBC) [Mass/Vol] 30.9 g/dL Normal 29.9-35.2 [facility] Comment on above: Performed By: #### C BC ####[facility] [address]wq[address] [place], [place] [address]Dr. Shahbaz Rogel MCV (RBC) [Entitic vol] 90.5 fL Normal 81.0-99.[address] [facility] [address] [facility] Comment on above: Performed By: #### C BC ####[facility] Ovpptwyzrb[address] [place], [place] [address]Dr. Shahbaz Rogel MONO # 0.4 103/ul Normal 0.3-0.8 [facility] Comment on above: Performed By: #### C BC ####[facility] Azfyxtxgvs[address] [place], [place] [id number]. Shahbaz Rogel Monocytes/100 WBC (Bld) 8.0 % Normal 1.7-12.0 [facility] Comment on above: Performed By: #### C BC ####[facility] Vxmmvfyzpg18[address] [place], [place] [address]DrChen Rogel NEUT # 2.5 103/ul Normal 1.4-6.5 [facility] Comment on above: Performed By: #### C BC ####[facility] Ultrjmzyuk[address] [place] [address]Dr. Shahbaz Rogel Neutrophils/100 WBC (Bld) 55.8 % Normal 43.0-75.[address] [facility] Comment on above: Performed By: #### C BC ####[facility] Wambhzqcfo39[address] [place] [address]Dr. Shahbaz Rogel Platelet mean volume (Bld) [Entitic vol] 9.7 fL Normal 9.5-13.[address] [facility] Comment on above: Performed By: #### C BC ####[facility] [address]pafnnuicb[address] [place] [address]Dr. Shahbaz Rogel PLT 158 103/ul Normal 150-450 [facility] Comment on above: Performed By: #### C BC ####[facility] Fgjljhszfe7[address] [place] [address]Dr. Shahbaz Rogel RBC 4.61 106/ul Normal 4.20-5.40 [facility] Comment on above: Performed By: #### C BC ####[facility] Evgnlxkiei3063 [place] [address]Dr. Shahbaz Rogel WBC 4.5 103/ul Normal 4.0-11.0 [facility] Comment on above: Performed By: #### C BC ####[facility] Cimahlfsux91[address] [place] [address]Dr. Shahbaz Rogel CRPon 07-05-2022 CRP [Mass/Vol] mg/L Normal <=1.0 [facility] Comment on above: Performed By: #### C RP, CMP, BNP ####[facility] Xbtpnjjbll[address] [place] [address]Dr. Shahbaz Rogel ECHO LIMITED STUDYon ECHO LIMITED STUDY Normal [facility] PROF 14(COMP METB)on Albumin [Mass/Vol] 3.2 g/dL Critically low 3.4-5.0 Th e [facility] Comment on above: Performed By: #### C RP, CMP, BNP ####[facility] Xbadkippkx28[address] [place] [address]Dr. Shahbaz Juan F Albumin/Globulin [Mass ratio] 1.0 {ratio} Normal [facility] Comment on above: Performed By: #### C RP, CMP, BNP ####[facility] Vnbpqsufwv29[address] [place] [address]Dr. Shahbaz Rogel ALP [Catalytic activity/Vol] 88 U/L Normal 46-116 [facility] Comment on above: Performed By: #### C RP, CMP, BNP ####[facility] Csdpfxcisu2983 [place] [address]Dr. Lilajarrod Rogel ALT [Catalytic activity/Vol] 17 U/L Normal 14-[address] [facility] Comment on above: Performed By: #### C RP, CMP, BNP ####[facility] Uzdsgfpiuc24[address] [place] [address]Dr. Shahbaz Rogel Anion gap [Moles/Vol] 12.5 mmol/L Normal [facility] Comment on above: Performed By: #### C RP, CMP, BNP ####[facility] Cktmkuvbxf0727 [place] [address]Dr. Lilajarrod Rogel AST [Catalytic activity/Vol] 18 U/L Normal 15-37 [facility] Comment on above: Performed By: #### C RP, CMP, BNP ####[facility] Ebpmwxiobe0340 [place] [address]Dr. Shahbaz Rogel Bilirubin [Mass/Vol] 0.3 mg/dL Normal 0.2-1.0 [facility] Comment on above: Performed By: #### C RP, CMP, BNP ####[facility] Itrntnbewb[address] [place] [address]Dr. Shahbaz Rogel Calcium [Mass/Vol] 8.9 mg/dL Normal 8.5-10.1 [facility] Comment on above: Performed By: #### C RP, CMP, BNP ####[facility] Iwivtuhntr14[address] [place] [address]Dr. Shahbaz Rogel Chloride [Moles/Vol] 103 mmol/L Normal 98-107 [facility] Comment on above: Performed By: #### C RP, CMP, BNP ####[facility] Dimvrpegvq1326 [place] [address]Dr. Shahbaz Rogel CO2 [Moles/Vol] 28.1 mmol/L Normal 21.0-32.[address] [facility] Comment on above: Performed By: #### C RP, CMP, BNP ####[facility] Zbduufynhb9626 [place] [address]Dr. Shahbaz Rogel Creatinine [Mass/Vol] 1.24 mg/dL Critically high 0.55-1.[address] [facility] Comment on above: Performed By: #### C RP, CMP, BNP ####[facility] Bylbkfevll[address] [place], [place] [address]Dr. Shahbaz Rogel EGFR-AF CITIZEN [place] 54 mL/min/1.73m2 Critically low >=[address] [facility] Comment on above: Performed By: #### C RP, CMP, BNP ####[facility] Qtoxjkkadi18[address] [place], [place] [address]Dr. Shahbaz Rogel EGFR-NON AF CITIZEN OF [place] 45 mL/min/1.73m2 Critically low >=60 [facility] Comment on above: Performed By: #### C RP, CMP, BNP ####[facility] Aztnainach7[address] [place], [place] [address]Dr. Shahbaz Rogel Globulin (S) [Mass/Vol] 3.1 g/dL Normal [facility] Comment on above: Performed By: #### C RP, CMP, BNP ####[facility] Jfffativnp7[address] [place], [place] [address]Dr. Shahbaz Rogel Glucose [Mass/Vol] 115 mg/dL Critically high 74-106 [facility] Comment on above: Performed By: #### C RP, CMP, BNP ####[facility] Odtgugsmqe400[address] [place], [place] [address]Dr. Shahbaz Rogel Potassium [Moles/Vol] 3.6 mmol/L Normal 3.5-5.[address] [facility] Comment on above: Performed By: #### C RP, CMP, BNP ####[facility] Nzbviwwykj[address] [place], [place] [address]Dr. Shahbaz Rogel Protein [Mass/Vol] 6.3 g/dL Critically low 6.4-8.2 Th e [facility] Comment on above: Performed By: #### C RP, CMP, BNP ####[facility] Jygzxscsgl5[address] [place] [address]Dr. Shahbaz Rogel Sodium [Moles/Vol] 140 mmol/L Normal 136-145 [facility] Comment on above: Performed By: #### C RP, CMP, BNP ####[facility] Ibdootqxoi7[address] [place] [address]Dr. Shahbaz Rogel Urea nitrogen [Mass/Vol] 18.0 mg/dL Normal 7.0-18.[address] [facility] Comment on above: Performed By: #### C RP, CMP, BNP ####[facility] Aifxxjargm[address] [place] [address]Dr. Shahbaz Rogel Urea nitrogen/Creatinine [Mass ratio] 14.5 mg/mg Normal [facility] Comment on above: Performed By: #### C RP, CMP, BNP ####[facility] Frjdeidykj[address] [place], [place] [address]Dr. Shahbaz Rogel T3, TOTAL (TRIIODOTHYRONINE) on 07-05-2022 T3, TOTAL 95 ng/dL Normal 71-[address] [facility] Comment on above: Performed By: #### T 3TOTAL ####[facility] Lhgucdhxrp[address] [place], [place] [address]Dr. Shahbaz Rogel CARDIAC ROSALINA 3-6on 2 CK [Catalytic activity/Vol] 78 U/L Normal 26-192 [facility] Comment on above: Performed By: #### C MREP ####[facility] Igjsuhhppb8[address] [place] [address]Dr. Shahbaz Rogel CK.MB [Mass/Vol] 1.44 ng/mL Normal <=3.60 [facility] Comment on above: Performed By: #### C MREP ####[facility] Vvmrfsnymi9[address] [place] [address]Dr. Shahbaz Rogel HSTROP 9.0 pg/mL Normal 4.0-51.3 [facility] Comment on above: Result Comment: CUT- OFF POINTS HAVE BEEN ESTABLISHED BASED ON THE FOURTH UNIVERSAL DEFINITIONS OF MYOCARDIALINFARCTION. THE UPPER REFERENCE LIMIT (URL) OF TROPONIN, DEFINED THE 99TH PERCENTILE OFcTnI DISTRIBUTION IN A REFERENCE POPULATION, HAS BEEN CONFIRMED THE DECISION THRESHOLDFOR ND DIAGNOSIS. Performed By: #### C MREP ####[facility] Pxyrqomckl5[address] [place] [address]Dr. Shahbaz Rogel CK [Catalytic activity/Vol] 88 U/L Normal 26-192 [facility] Comment on above: Performed By: #### C MREP ####[facility] Evnppujhxk299[address] [place] [address]Dr. Shahbaz Rogel CK.MB [Mass/Vol] 1.38 ng/mL Normal <=3.60 [facility] Comment on above: Performed By: #### C MREP ####[facility] Qgykmajdei1836 [place] [address]Dr. Shahbaz Rogel HSTROP 7.0 pg/mL Normal 4.0-51.3 [facility] Comment on above: Result Comment: CUT- OFF POINTS HAVE BEEN ESTABLISHED BASED ON THE FOURTH UNIVERSAL DEFINITIONS OF MYOCARDIALINFARCTION. THE UPPER REFERENCE LIMIT (URL) OF TROPONIN, DEFINED THE 99TH PERCENTILE OFcTnI DISTRIBUTION IN A REFERENCE POPULATION, HAS BEEN CONFIRMED THE DECISION THRESHOLDFOR ND DIAGNOSIS. Performed By: #### C MREP ####[facility] Deptsymixk5355 [place] [address]Dr. Shahbaz Rogel CARDIAC ROSALINA ADMITon 022 CK [Catalytic activity/Vol] 87 U/L Normal 26-192 [facility] Comment on above: Performed By: #### C JACKSON, CMADM ####[facility] Gtsjxqidru95[address] [place] [address]Dr. Shahbaz Rogel CK.MB [Mass/Vol] 1.80 ng/mL Normal <=3.60 [facility] Comment on above: Performed By: #### C JACKSON, CMADM ####[facility] Kouzrilxpi76[address] [place] [address]Dr. Shahbaz Rogel HSTROP 7.6 pg/mL Normal 4.0-51.3 [facility] Comment on above: Result Comment: CUT- OFF POINTS HAVE BEEN ESTABLISHED BASED ON THE FOURTH UNIVERSAL DEFINITIONS OF MYOCARDIALINFARCTION. THE UPPER REFERENCE LIMIT (URL) OF TROPONIN, DEFINED THE 99TH PERCENTILE OFcTnI DISTRIBUTION IN A REFERENCE POPULATION, HAS BEEN CONFIRMED THE DECISION THRESHOLDFOR ND DIAGNOSIS. Performed By: #### C MP, CMADM ####[facility] Meephggdaa7596 [place] [address]Dr. Lilajarrod Rogel LEN 67 ng/mL Normal 9-82 [facility] Comment on above: Performed By: #### C MP, CMADM ####[facility] Tblsezdids1862 [place] [address]Dr. Shahbaz Rogel CBC AUTO DIFFon 07-04-2022 BASO # 0.0 103/ul Normal 0.0-0.[address] [facility] Comment on above: Performed By: #### C BC ####[facility] Kahsqlpqea97[address] [place], [place] [address]Dr. Shahbaz Rogel Basophils/100 WBC (Bld) 0.7 % Normal 0.2-2.[address] [facility] Comment on above: Performed By: #### C BC ####[facility] Tkbcmksrvd6[address] [place], [place] [address]Dr. Lilajarrod Rogel EO # 0.1 103/ul Normal 0.0-0.[address] [facility] Comment on above: Performed By: #### C BC ####[facility] Jyuswexcje[address] [place], [place] [address]Dr. Shahbaz Rogel Eosinophils/100 WBC (Bld) 3.4 % Normal 0.9-7.0 [facility] Comment on above: Performed By: #### C BC ####[facility] Nfzplviuzs13[address] [place], [place] [address]Dr. Lilajarrod Rogel Erythrocyte distribution width (RBC) [Ratio] 13.3 % Normal 11.0-15.[address] [facility] Comment on above: Performed By: #### C BC ####[facility] Swcgsmftsb238[address] [place], [place] [address]Dr. Lilajarrod Rogel Hematocrit (Bld) [Volume fraction] 42.1 % Normal 36.0-48.[address] [facility] Comment on above: Performed By: #### C BC ####[facility] Scemuxbosq26[address] [place] [address]Dr. Shahbaz Rogel Hemoglobin (Bld) [Mass/Vol] 13.3 g/dL Normal 12.0-16.[address] [facility] Comment on above: Performed By: #### C BC ####[facility] Krramdpqgw36[address] [place] [address]Dr. Shahbaz Rogel IG # 0.01 10e3/ul Normal 0.00-0.[address] [facility] Comment on above: Performed By: #### C BC ####[facility] Etxrlzyqdv7656 [place] [address]Dr. Shahbaz Juan F IG % 0.3 % Normal 0.0-0.[address] [facility] Comment on above: Performed By: #### C BC ####[facility] Jjvetwokmf[address] [place], [place] [address]Dr. Shahbaz Rogel LYMPH # 1.0 103/ul Critically low 1.2-3.[address] [facility] Comment on above: Performed By: #### C BC ####[facility] Pvebxujgxy[address] [place], [place] [address]Dr. Lilajarrod Rogel Lymphocytes/100 WBC (Bld) 35.6 % Normal 20.5-60.[address] [facility] Comment on above: Performed By: #### C BC ####[facility] Qixeoroxcq120[address] [place], [place] [address]Dr. Shahbaz Rogel MANUAL DIFF REQ NO Normal [facility] Comment on above: Performed By: #### C BC ####[facility] Qgngjlypqf047[address] [place], [place] [address]Dr. Lilajarrod Rogel MCH (RBC) [Entitic mass] 27.9 pg Normal 26.7-34.0 [facility] Comment on above: Performed By: #### C BC ####[facility] Oqtddjejcj50[address] [place] [address]Dr. Shahbaz Rogel MCHC (RBC) [Mass/Vol] 31.6 g/dL Normal 29.9-35.2 [facility] Comment on above: Performed By: #### C BC ####[facility] Hckvpmymuz08[address] [place] [address]Dr. Shahbaz Rogel MCV (RBC) [Entitic vol] 88.3 fL Normal 81.0-99.0 [facility] Comment on above: Performed By: #### C BC ####[facility] Mswmkbsceb2193 [place] [address]Dr. Shahbaz Juan F MONO # 0.2 103/ul Critically low 0.3-0.[address] [facility] Comment on above: Performed By: #### C BC ####[facility] Mphhfcqdhu[address] [place], [place] [address]Dr. Lilajarrod Rogel Monocytes/100 WBC (Bld) 7.9 % Normal 1.7-12.[address] [facility] Comment on above: Performed By: #### C BC ####[facility] Pszcbfwphk20[address] [place], [place] [address]Dr. Lilajarrod Juan F NEUT # 1.5 103/ul Normal 1.4-6.[address] [facility] Comment on above: Performed By: #### C BC ####[facility] Ryvzjpfvfq[address] [place], [place] [address]Dr. Lilajarrod Rogel Neutrophils/100 WBC (Bld) 52.1 % Normal 43.0-75.0 [facility] Comment on above: Performed By: #### C BC ####[facility] Cxkzsboqsg[address] [place], [place] [address]Dr. Shahbaz Rogel Platelet mean volume (Bld) [Entitic vol] 9.5 fL Normal 9.5-13.5 [facility] Comment on above: Performed By: #### C BC ####[facility] Jzmigugral[address] [place], [place] [address]Dr. Shahbaz Rogel PLT 172 103/ul Normal 150-450 [facility] Comment on above: Performed By: #### C BC ####[facility] Tqjhqxwvwm55[address] [place] [address]Dr. Shahbaz Rogel RBC 4.77 106/ul Normal 4.20-5.40 [facility] Comment on above: Performed By: #### C BC ####[facility] Rlhajdudim3616 [place] [address]Dr. Shahbaz Rogel WBC 2.9 103/ul Critically low 4.0-11.0 [facility] Comment on above: Performed By: #### C BC ####[facility] Vtnvhqzroi8493 [place] [address]Dr. Shahbaz Rogel CELL COUNT BODY FLUIDon 10-0 BASOS Normal [facility] Comment on above: Performed By: #### B FCC ####[facility] Udehcfjfvk079[address] [place] [address]Dr. Shahbaz Rogel Eosinophils/100 WBC (Bld) 4 % Normal [facility] Comment on above: Performed By: #### B FCC ####[facility] Bsigwfpyze[address] [place], [place] [address]Dr. Shahbaz oRgel Lymphocytes/100 WBC (Bld) 12 % Normal [facility] Comment on above: Performed By: #### B FCC ####[facility] Iwepxuslfl[address] [place], [place] [address]Dr. Shahbaz Rogel Monocytes/100 WBC (Bld) 4 % Normal [facility] Comment on above: Performed By: #### B FCC ####[facility] Vengvzbgcy[address] [place], [place] [address]Dr. Shahbaz Rogel RBC 67 cubic mm Normal [facility] Comment on above: Performed By: #### B FCC ####[facility] Iklkbvjbyo[address] [place], [place] [address]Dr. Shahbaz Rogel SEGS 80 % Normal [facility] Comment on above: Performed By: #### B FCC ####[facility] Urbqzyuvvx[address] [place], [place] [address]Dr. Shahbaz Rogel WBC BODY FLUID 223 cubic mm Normal [facility] Comment on above: Performed By: #### B FCC ####[facility] Uwsiixvxmh[address] [place], [place] [address]Dr. Shahbaz Rogel CULTURE OTHERon 07-04-2022 CULTURE OTHER Culture Observations : NO GROWTH AT 48 HOURS. Normal [facility] Comment on above: Performed By: #### O THCX ####[facility] Pxnfqblcmv12[address] [place] [address]Dr. Shahbaz Rogel CYTOLOGYon 07-04-2022 SENT TO REF LAB 07/04/[address] [facility] Comment on above: Performed By: #### C YTO ####[facility] Exoadoinur[address] [place] [address]Dr. Shahbaz Rogel Covid-19 PCR (CVDTBH)on SARS-CoV-2 (COVID-19) RNA PAVAN+probe Ql (Unsp spec) Not detected Normal NOT DETECTED [facility] Comment on above: Result Comment: When diagnostic [...] for this test is supported by the [place] [employer] and [employer] Service's declaration that [...] be used). Performed By: #### C VDTBH ####[facility] Etizuvfvoe60[address] [place] [address]Dr. Shahbaz Rogel GRAM STAINon 07-04-2022 COMMENTS NO ORGANISMS OBSERVED Normal [facility] Comment on above: Performed By: #### G STAIN ####[facility] Aanpxxbroz9326 [place] [address]Dr. Shahbaz Juan F DIPHTHEROIDS Normal [facility] Comment on above: Performed By: #### G STAIN ####[facility] Qqqxmbelmi3096 [place] [address]Dr. Shahbaz Rogel EPITHELIALS Normal [facility] Comment on above: Performed By: #### G STAIN ####[facility] Ccrnmlsyeu94[address] [place] [address]Dr. Shahbaz Rogel FUNGAL ELEMENTS Normal [facility] Comment on above: Performed By: #### G STAIN ####[facility] Ktwvajmixz43[address] [place] [address]Dr. Shahbaz Rogel GRAM NEG BACILLI Normal [facility] Comment on above: Performed By: #### G STAIN ####[facility] Amuykgbmlx65[address] [place] [address]Dr. Shahbaz Rogel GRAM NEG DIPPLOCOCCI Normal [facility] Comment on above: Performed By: #### G STAIN ####[facility] Obdmdqhjgw[address] [place], [place] [address]Dr. Shahbaz Rogel GRAM POS BACILLI Normal [facility] Comment on above: Performed By: #### G STAIN ####[facility] Dcniyuflln[address] [place], [place] [address]Dr. Shahbaz Rogel GRAM POSITIVE COCCI Normal [facility] Comment on above: Performed By: #### G STAIN ####[facility] Bxguwzgjxg9[address] [place], [place] [address]Dr. Shahbaz Rogel GRAM STAIN SOURCE Rt Lower Lobe Bronch ial Washing Normal [facility] Comment on above: Performed By: #### G STAIN ####[facility] Pwuqgpkdwg[address] [place], [place] [address]Dr. Shahbaz Rogel GS_DIPTH Normal [facility] Comment on above: Performed By: #### G STAIN ####[facility] Nnzoekpvll[address] [place], [place] [address]Dr. Shahbaz Rogel WBC RARE Normal [facility] Comment on above: Performed By: #### G STAIN ####[facility] Hqymzwcqig[address] [place], [place] [address]Dr. Shahbaz Rogel PROF 14(COMP METB)on 022 Albumin [Mass/Vol] 3.6 g/dL Normal 3.4-5.[address] [facility] Comment on above: Performed By: #### C MP, CMADM ####[facility] Hjzumdxaiy[address] [place], [place] [address]Dr. Shahbaz Rogel Albumin/Globulin [Mass ratio] 1.1 {ratio} Normal [facility] Comment on above: Performed By: #### C JACKSON, CINDY ####[facility] Uqlfumewhg[address] [place] [address]Dr. Shahbaz Rogel ALP [Catalytic activity/Vol] 102 U/L Normal 46-116 [facility] Comment on above: Performed By: #### C JACKSON, CINDY ####[facility] Slshisngow7430 [place] [address]Dr. Shahbaz Rogel ALT [Catalytic activity/Vol] 19 U/L Normal 14-59 [facility] Comment on above: Performed By: #### C JACKSON, CINDY ####[facility] Koqaygckkd[address] [place], [place] [address]Dr. Shahbaz Rogel Anion gap [Moles/Vol] 9.5 mmol/L Normal [facility] Comment on above: Performed By: #### C JACKSON, CINDY ####[facility] Ybpnakarqm[address] [place], [place] [address]Dr. Shahbaz Rogel AST [Catalytic activity/Vol] 19 U/L Normal 15-37 [facility] Comment on above: Performed By: #### C JACKSON, CINDY ####[facility] Nicizzdedz49[address] [place], [place] [address]Dr. Shahbaz Juan F Bilirubin [Mass/Vol] 0.3 mg/dL Normal 0.2-1.0 [facility] Comment on above: Performed By: #### C JACKSON, CINDY ####[facility] Ytjybfshba[address] [place], [place] [address]Dr. Shahbaz Juan F Calcium [Mass/Vol] 8.8 mg/dL Normal 8.5-10.1 [facility] Comment on above: Performed By: #### C JACKSON, CINDY ####[facility] Hodjwxupwf[address] [place], [place] [address]Dr. Shahbaz Rogel Chloride [Moles/Vol] 107 mmol/L Normal 98-107 [facility] Comment on above: Performed By: #### C CINDY PAZ ####[facility] Qlghwfwhog5365 [place] [address]Dr. Shahbaz Rogel CO2 [Moles/Vol] 29.5 mmol/L Normal 21.0-32.0 [facility] Comment on above: Performed By: #### C JACKSON, CINDY ####[facility] Tbsysdtdja2658 [place] [address]Dr. Shahbaz Rogel Creatinine [Mass/Vol] 0.97 mg/dL Normal 0.55-1.02 [facility] Comment on above: Performed By: #### C JACKSON, CMADM ####[facility] Rluaprizwh[address] [place] [address]Dr. Shahbaz Rogel EGFR-AF CITIZEN OF [place] >60 Normal >=60 [facility] Comment on above: Performed By: #### C JACKSON, CMAROXANNA ####[facility] Qbmltidxtv18[address] [place] [address]Dr. Shahbaz Rogel EGFR-NON AF CITIZEN OF [place] 59 mL/min/1.73m2 Critically low >=60 [facility] Comment on above: Performed By: #### C JACKSON, CMADM ####[facility] Tlhjsmjytc3598 [place] [address]Dr. Shahbaz Rogel Globulin (S) [Mass/Vol] 3.2 g/dL Normal [facility] Comment on above: Performed By: #### C JACKSON, CMADM ####[facility] Eoctgshnfj3464 [place] [address]Dr. Shahbaz Rogel Glucose [Mass/Vol] 89 mg/dL Normal 74-106 [facility] Comment on above: Performed By: #### C JACKSON, CMADM ####[facility] Ffuntocekx4149 [place] [address]Dr. Shahbaz Rogel Potassium [Moles/Vol] 4.0 mmol/L Normal 3.5-5.1 [facility] Comment on above: Performed By: #### C JACKSON, CMADM ####[facility] Jbetmdloxc1348 [place] [address]Dr. Shahbaz Rogel Protein [Mass/Vol] 6.8 g/dL Normal 6.4-8.2 [facility] Comment on above: Performed By: #### C JACKSON, CMADM ####[facility] Sehfcybkbc[address] [place], [place] [address]Dr. Shahbaz Rogel Sodium [Moles/Vol] 142 mmol/L Normal 136-145 [facility] Comment on above: Performed By: #### C JACKSON, CMADM ####[facility] [place] [address] [place], [place] [address]Dr. Shahbaz Rogel Urea nitrogen [Mass/Vol] 11.0 mg/dL Normal 7.0-18.[address] [facility] Comment on above: Performed By: #### C JACKSON, CMADM ####[facility] [address]vb[address] [place], [place] [address]Dr. Shahbaz Rogel Urea nitrogen/Creatinine [Mass ratio] 11.3 mg/mg Normal [facility] Comment on above: Performed By: #### C JACKSON, CMADM ####[facility] Qklmanaggr[address] [place], [place] [address]Dr. Shahbaz Rogel T4on 07-04-2022 T4 [Mass/Vol] 4.70 ug/dL Critically low 4.80-13.[address] [facility] Comment on above: Performed By: #### T SH, T4 ####[facility] Fuizfvcwyj[address] [place], [place] [address]Dr. Shahbaz Rogel TSHon 07-04-2022 TSH 0.359 uIU/mL Normal 0.358-3.[address] [facility] Comment on above: Performed By: #### T SH, T4 ####[facility] [address]swzclaeqp[address] [place], [place] [address]Dr. Shahbaz Rogel XR CHEST 1 Von 07-04-2022 XR CHEST 1 V Normal [facility] XR CHEST 1 V Normal [facility] CHLAMYDIA PNEUMONIAE IgG IgM IgAon 06-27-2022 Chlamydia pneumoniae IgA <1:16 Normal Neg:<1:16 [facility] Comment on above: Performed By: #### C HLMPNE ####[facility] [address]cg[address]pngw[address] [place], [place] [address]Dr. Shahbaz Rogel Chlamydia pneumoniae IgG <1:16 Normal Neg:<1:16 [facility] Comment on above: Performed By: #### C HLMPNE ####[facility] [address] [place], [place] [address]Ta. Shahbaz Rogel Chlamydia pneumoniae IgM <1:10 Normal Neg:<1:10 [facility] Comment on above: Performed By: #### C HLMPNE ####[facility] [address]emfrrfhxv[address] [place], [place] [address]Me. Shahbaz Rogel Test Information: Comment Normal [facility] Comment on above: Result Comment: This test was developed and its performance characteristics determinedby [facility]. It has not been cleared or approved by the Food and DrugAdministration. The FDA has determined that such clearance or approvalis not necessary. Results of this test are for investigationalpurposes only. The result should not be used as a diagnosticprocedure without confirmation of the diagnosis by another medicallyestablished diagnostic product or procedure. Performed By: #### C HLMPNE ####[facility] [address] [place], [place] [address]Jp. Shahbaz Rogel Covid-19 PCR (CVDTBH)on 06-03 SARS-CoV-2 (COVID-19) RNA PAVAN+probe Ql (Unsp spec) Not detected Normal NOT DETECTED [facility] Comment on above: Result Comment: This test is not yet approved or cleared by the [place] FDA. When there are no FDA-approved or cleared tests available, and other criteria are met, FDA can make tests available under an emergency access mechanism called an Emergency Use Authorization (EUA). The EUA for this test is supported by the [place] of Health and Human Service's (HHS's) declaration [...] with SARS-CoV-2. Performed By: #### C VDTBH ####[facility] [address] [place] [address]Dr. Shahbaz Rogel CYCLIC CITRULLINATED PEPTIDE AB (CCP)on 06-25-2022 CCP Antibodies IgG/IgA 13 units Normal 0-19 [facility] Comment on above: Result Comment: Nega tive <20 Weak positive 20 - 39 Moderate positive 40 - 59 Strong positive >59 Performed By: #### C CPAB ####[facility] [address]viuie[address] [place] [address]Dr. Shahbaz Rogel ANTI NEUTROPHIL CYTOPLASMIC AB (ANCA) PRon 06-24-2022 Anti-MPO Antibodies <0.2 Normal 0.0-0.[address] [facility] Comment on above: Result Comment: Perf ormed at: BN Performed By: #### A NCAP ####[facility] Mhoopxzaeo[address] [place], [place] [address]Dr. Shahbaz Rogel Anti-PR3 Antibodies 5.0 units Critically high 0.0-0.[address] [facility] Comment on above: Result Comment: Perf ormed at: BN Performed By: #### A NCAP ####[facility] Tocfautfwn[address] [place], [place] [address]Dr. Shahbaz Rogel Atypical pANCA <1:20 Normal Neg:<1:[address] [facility] Comment on above: Result Comment: The atypical pANCA pattern has been observed in a significantpercentage of patients with ulcerative colitis, primary sclerosingcholangitis and autoimmune hepatitis.Performed at: CB Performed By: #### A NCAP ####[facility] [address]wt[address] [place], [place] [address]Dr. Shahbaz Rogel Cytoplasmic (C-ANCA) <1:20 Normal Neg:<1:[address] [facility] Comment on above: Result Comment: Perf ormed at: CB Performed By: #### A NCAP ####[facility] Tijljrhefe[address] [place], [place] [address]Dr. Shahbaz Rogel Perinuclear (P-ANCA) 1:80 Critically high Neg:<1:[address] [facility] Comment on above: Result Comment: The presence of positive fluorescence exhibiting P-ANCA or C-ANCApatterns alone is not specific for the diagnosis of Ada'sGranulomatosis (WG) or microscopic polyangiitis. Decisions abouttreatment should not be based solely on ANCA IFA results. TheInternational ANCA Group Consensus recommends follow up testing ofpositive sera with both DC-3 and MPO-ANCA enzyme immunoassays. Asmany as 5% serum samples are positive only by EIA.Ref. AM J Clin Pathol 1999;111:507-513.Performed at: CB Performed By: #### A NCAP ####[facility] [address] [place], [place] [address]Dr. Shahbaz Rogel ANTIGLOMERULAR BASEMENT MEMB ANTOINE ABSon 06-24-2022 Anti-GBM Antibodies <0.2 Normal 0.0-0.[address] [facility] Comment on above: Performed By: #### A GBM ####[facility] Gjborcvtoq[address] [place], [place] [address]Dr. Shahbaz Rogel SHAHANA EIA W/REFLEX 5 BIOMARKER Son 06-23-2022 SHAHANA Direct Negative Normal Negative [facility] Comment on above: Performed By: #### A NARF ####[facility] [address]tbnrm[address]po[address] [place], [place] [address]Dr. Shahbaz Rogel ANTISCLERODERMA ABon 022 Antiscleroderma-70 Antibodies <0.2 Normal 0.0-0.9 [facility] Comment on above: Performed By: #### A NSCLER ####[facility] Wutxtjecib[address] [place], [place] [address]Dr. Shahbaz Rogel RHEUMATOID FACTORon 06-23-20 RA Latex Turbid. <10.0 Normal <14.0 [facility] Comment on above: Performed By: #### R F ####[facility] [address]zqw[address] [place], [place] [address]Dr. Shahbaz Rogel CBC AUTO DIFFon 06-22-2022 BASO # 0.0 103/ul Normal 0.0-0.1 [facility] Comment on above: Performed By: #### C BC ####[facility] Icxdejzzdi[address] [place], [place] [address]Dr. Shahbaz Rogel Basophils/100 WBC (Bld) 0.5 % Normal 0.2-2.0 [facility] Comment on above: Performed By: #### C BC ####[facility] [address] [place] [address]Dr. Shahbaz Rogel EO # 0.1 103/ul Normal 0.0-0.7 [facility] Comment on above: Performed By: #### C BC ####[facility] Swtjcmncew[address] [place], [place] [address]Dr. Shahbaz Rogel Eosinophils/100 WBC (Bld) 3.4 % Normal 0.9-7.[address] [facility] Comment on above: Performed By: #### C BC ####[facility] Pqoejxoezh[address] [place], [place] [address]Dr. Lilajarrod Rogel Erythrocyte distribution width (RBC) [Ratio] 13.2 % Normal 11.0-15.[address] [facility] Comment on above: Performed By: #### C BC ####[facility] [address]sc[address]obn[address] [place], [place] [address]Dr. Lilajarrod Rogel Hematocrit (Bld) [Volume fraction] 45.6 % Normal 36.0-48.[address] [facility] Comment on above: Performed By: #### C BC ####[facility] Tloq[address]rvxz[address] [place], [place] [address]Dr. Shahbaz Rogel Hemoglobin (Bld) [Mass/Vol] 14.7 g/dL Normal 12.0-16.0 [facility] Comment on above: Performed By: #### C BC ####[facility] [address] [place], [place] [address]Dr. Lilajarrod Rogel IG # 0.01 10e3/ul Normal 0.00-0.03 [facility] Comment on above: Performed By: #### C BC ####[facility] Wgbawrncgr[address] [place], [place] [address]Dr. Lilajarrod Rogel IG % 0.3 % Normal 0.0-0.5 [facility] Comment on above: Performed By: #### C BC ####[facility] Omyvfcleyr[address] [place], [place] [address]DrChen Rogel LYMPH # 1.0 103/ul Critically low 1.2-3.8 [facility] Comment on above: Performed By: #### C BC ####[facility] [address]kg[address] [place] [address]Dr. Shahbaz Rogel Lymphocytes/100 WBC (Bld) 25.7 % Normal 20.5-60.[address] [facility] Comment on above: Performed By: #### C BC ####[facility] [address] [place] [address]Dr. Shahbaz Rogel MANUAL DIFF REQ NO Normal [facility] Comment on above: Performed By: #### C BC ####[facility] [address]hrbzhur[address] [place] [address]Dr. Shahbaz Rogel MCH (RBC) [Entitic mass] 28.1 pg Normal 26.7-34.0 [facility] Comment on above: Performed By: #### C BC ####[facility] [address]bvjwb[address] [place] [address]Dr. Shahbaz Rogel MCHC (RBC) [Mass/Vol] 32.2 g/dL Normal 29.9-35.[address] [facility] Comment on above: Performed By: #### C BC ####[facility] Of[address]qubuor[address] [place], [place] [address]Dr. Shahbaz Rogel MCV (RBC) [Entitic vol] 87.2 fL Normal 81.0-99.[address] [facility] Comment on above: Performed By: #### C BC ####[facility] Druxtssuks[address] [place], [place] [address]Dr. Shahbaz Rogel MONO # 0.2 103/ul Critically low 0.3-0.8 [facility] Comment on above: Performed By: #### C BC ####[facility] [address]xe[address] [place] [address]DrChen Rogel Monocytes/100 WBC (Bld) 6.0 % Normal 1.7-12.0 [facility] Comment on above: Performed By: #### C BC ####[facility] Y[address]rvw[address] [place], [place] [address]DrChen Rogel NEUT # 2.5 103/ul Normal 1.4-6.5 [facility] Comment on above: Performed By: #### C BC ####[facility] [address]vsl[address] [place] [address]Dr. Lilajarrod Juan F Neutrophils/100 WBC (Bld) 64.1 % Normal 43.0-75.0 [facility] Comment on above: Performed By: #### C BC ####[facility] [address]ltthiqlx[address] [place] [address]Dr. Lilajarrod Juan F Platelet mean volume (Bld) [Entitic vol] 9.4 fL Critically low 9.5-13.5 [facility] Comment on above: Performed By: #### C BC ####[facility] [address]arcgab[address] [place] [address]Dr. Shahbaz Rogel PLT 212 103/ul Normal 150-450 [facility] Comment on above: Performed By: #### C BC ####[facility] [address]ybepx[address] [place] [address]Dr. Shahbaz Rogel RBC 5.23 106/ul Normal 4.20-5.40 [facility] Comment on above: Performed By: #### C BC ####[facility] [address]vxhwmgok[address] [place] [address]Dr. Shahbaz Rogel WBC 3.9 103/ul Critically low 4.0-11.0 [facility] Comment on above: Performed By: #### C BC ####[facility] [address]gsbenwy[address] [place] [address]DrChen Rogel PROF 14(COMP METB)on 022 Albumin [Mass/Vol] 4.1 g/dL Normal 3.4-5.0 [facility] Comment on above: Performed By: #### C MP ####[facility] [address]ffdxalrn[address] [place] [address]DrChen Rogel Albumin/Globulin [Mass ratio] 1.1 {ratio} Normal [facility] Comment on above: Performed By: #### C MP ####[facility] [address]hmaligd[address] [place] [address]DrChen Rogel ALP [Catalytic activity/Vol] 133 U/L Critically high 46-116 [facility] Comment on above: Performed By: #### C MP ####[facility] Cjmirkinnh[address] [place] [address]Dr. Shahbaz Rogel ALT [Catalytic activity/Vol] 29 U/L Normal 14-[address] [facility] Comment on above: Performed By: #### C MP ####[facility] [address]ahmaayhz[address] [place] [address]Dr. Shahbaz Rogel Anion gap [Moles/Vol] 10.9 mmol/L Normal Th e [facility] Comment on above: Performed By: #### C MP ####[facility] Htkclqbyvn[address] [place] [address]Dr. Shahbaz Juan F AST [Catalytic activity/Vol] 23 U/L Normal 15-[address] [facility] Comment on above: Performed By: #### C MP ####[facility] [address]jxyeplf[address] [place] [address]Dr. Shahbaz Juan F Bilirubin [Mass/Vol] 0.3 mg/dL Normal 0.2-1.[address] [facility] Comment on above: Performed By: #### C MP ####[facility] Ywxshmgcyx[address] [place], [place] [address]Dr. Shahbaz Juan F Calcium [Mass/Vol] 9.1 mg/dL Normal 8.5-10.[address] [facility] Comment on above: Performed By: #### C MP ####[facility] Gjuveugjyj[address] [place], [place] [address]Dr. Lilajarrod Rogel Chloride [Moles/Vol] 103 mmol/L Normal 98-107 [facility] Comment on above: Performed By: #### C MP ####[facility] [address]ectrmmyp[address] [place] [address]Dr. Shahbaz Juan F CO2 [Moles/Vol] 30.8 mmol/L Normal 21.0-32.0 [facility] Comment on above: Performed By: #### C MP ####[facility] Lsslvwghof[address] [place], [place] [address]Dr. Shahbaz Rogel Creatinine [Mass/Vol] 1.02 mg/dL Normal 0.55-1.[address] [facility] Comment on above: Performed By: #### C MP ####[facility] [address]ldcqbw[address] [place] [address]Dr. Shahbaz Rogel EGFR-AF CITIZEN OF [place] >60 Normal >=60 [facility] Comment on above: Performed By: #### C MP ####[facility] [address]zmkplk[address] [place] [address]Dr. Shahbaz Rogel EGFR-NON AF CITIZEN OF [place] 56 mL/min/1.73m2 Critically low >=60 [facility] Comment on above: Performed By: #### C MP ####[facility] [address]scgvxje[address] [place] [address]Dr. Shahbaz Rogel Globulin (S) [Mass/Vol] 3.7 g/dL Normal [facility] Comment on above: Performed By: #### C MP ####[facility] [address]zw[address] [place], [place] [address]Dr. Shahbaz Rogel Glucose [Mass/Vol] 80 mg/dL Normal 74-106 [facility] Comment on above: Performed By: #### C MP ####[facility] [address]upvns[address] [place] [address]Dr. Shahbaz Rogel Potassium [Moles/Vol] 3.7 mmol/L Normal 3.5-5.1 [facility] Comment on above: Performed By: #### C MP ####[facility] [address]txywatmej[address] [place] [address]Dr. Shahbaz Rogel Protein [Mass/Vol] 7.8 g/dL Normal 6.4-8.2 [facility] Comment on above: Performed By: #### C MP ####[facility] [address]sdfhvoti[address] [place] [address]Dr. Shahbaz Rogel Sodium [Moles/Vol] 141 mmol/L Normal 136-145 [facility] Comment on above: Performed By: #### C MP ####[facility] Ziftxfwsos[address] [place] [address]Dr. Shahbaz Rogel Urea nitrogen [Mass/Vol] 10.0 mg/dL Normal 7.0-18.0 [facility] Comment on above: Performed By: #### C MP ####[facility] [address]xqeecicap[address] [place] [address]Dr. Shahbaz Rogel Urea nitrogen/Creatinine [Mass ratio] 9.8 mg/mg Normal [facility] Comment on above: Performed By: #### C MP ####[facility] [address]oktxrabxr[address] [place] [address]Dr. Shahbaz Rogel SED RATE WESTERGRENon 2021 SED RATE 17 mm/hr Normal <=30 [facility] Comment on above: Performed By: #### S EDR ####[facility] Zmrjaebdcg[address] [place], [place] [address]Dr. Shahbaz Rogel CT CHEST HI RESOLUTIONon CT CHEST HI RESOLUTION Normal [facility] XR ANKLE RT MIN 3 VIEWSon XR ANKLE RT MIN 3 VIEWS Normal [facility] CT CHEST WO CONon 03-03-2022 CT CHEST WO CON Normal [facility] CT CSPINE WO CONon 2 CT CSPINE WO CON Normal [facility] XR CHEST 2 Von 03-03-2022 XR CHEST 2 V Normal [facility] XR STERNUM MIN 2 VIEWSon XR STERNUM MIN 2 VIEWS Normal [facility] CT HEAD WO CONon 03-02-2022 CT HEAD WO CON Normal [facility] CBC AUTO DIFFon 01-21-2022 BASO # 0.0 103/ul Normal 0.0-0.1 [facility] Comment on above: Performed By: #### C BC ####[facility] [address]krwkihq[address] [place] [address]Dr. Shahbaz Rogel Basophils/100 WBC (Bld) 0.0 % Critically low 0.2-2.0 [facility] Comment on above: Performed By: #### C BC ####[facility] [address]iemykxqe[address] [place] [address]Dr. Shahbaz Rogel EO # 0.0 103/ul Normal 0.0-0.7 [facility] Comment on above: Performed By: #### C BC ####[facility] Tphpsqumjr[address] [place], [place] [address]Dr. Shahbaz Rogel Eosinophils/100 WBC (Bld) 0.0 % Critically low 0.9-7.0 [facility] Comment on above: Performed By: #### C BC ####[facility] [address]wxcqhcc4[address] [place] [address]Dr. Shahbaz Rogel Erythrocyte distribution width (RBC) [Ratio] 14.2 % Normal 11.0-15.0 [facility] Comment on above: Performed By: #### C BC ####[facility] [address]oxndpw[address] [place], [place] [address]Dr. Shahbaz Rogel Hematocrit (Bld) [Volume fraction] 38.9 % Normal 36.0-48.0 [facility] Comment on above: Performed By: #### C BC ####[facility] Ckvchuoryx[address] [place], [place] [address]Dr. Shahbaz Rogel Hemoglobin (Bld) [Mass/Vol] 11.8 g/dL Critically low 12.0-16.0 [facility] Comment on above: Performed By: #### C BC ####[facility] R[address]kwfuo[address] [place], [place] [address]Dr. Shahbaz Rogel IG # 0.03 10e3/ul Normal 0.00-0.03 [facility] Comment on above: Performed By: #### C BC ####[facility] [address]veekluy[address] [place], [place] [address]Dr. Shahbaz Rogel IG % 0.4 % Normal 0.0-0.5 [facility] Comment on above: Performed By: #### C BC ####[facility] Zcepxvopzr[address] [place], [place] [address]Dr. Shahbaz Rogel LYMPH # 0.8 103/ul Critically low 1.2-3.8 [facility] Comment on above: Performed By: #### C BC ####[facility] [address]xyxtalqo[address] [place], [place] [address]Dr. Shahbaz Rogel Lymphocytes/100 WBC (Bld) 10.3 % Critically low 20.5-60.0 [facility] Comment on above: Performed By: #### C BC ####[facility] [address]wonmgtlu[address] [place] [address]Dr. Shahbaz Juan F MANUAL DIFF REQ NO Normal [facility] Comment on above: Performed By: #### C BC ####[facility] [address]gclndlipc[address] [place] [address]Dr. Shahbaz Rogel MCH (RBC) [Entitic mass] 27.1 pg Normal 26.7-34.0 [facility] Comment on above: Performed By: #### C BC ####[facility] Zdzgpirncp[address] [place], [place] [address]Dr. Shahbaz Juan F MCHC (RBC) [Mass/Vol] 30.3 g/dL Normal 29.9-35.2 [facility] Comment on above: Performed By: #### C BC ####[facility] Kniseiimst[address] [place], [place] [address]Dr. Lilajarrod Rogel MCV (RBC) [Entitic vol] 89.2 fL Normal 81.0-99.0 [facility] Comment on above: Performed By: #### C BC ####[facility] R[address]utxtekdh[address] [place], [place] [address]Dr. Shahbaz Juan F MONO # 0.4 103/ul Normal 0.3-0.8 [facility] Comment on above: Performed By: #### C BC ####[facility] Tpwinefkvd[address] [place], [place] [address]Dr. Shahbaz Rogel Monocytes/100 WBC (Bld) 4.7 % Normal 1.7-12.0 [facility] Comment on above: Performed By: #### C BC ####[facility] Nkqutlznpl[address] [place], [place] [address]Dr. Lilajarrod Juan F NEUT # 6.6 103/ul Critically high 1.4-6.5 [facility] Comment on above: Performed By: #### C BC ####[facility] Kwrgenxpmv[address] [place], [place] [address]Dr. Shahbaz Rogel Neutrophils/100 WBC (Bld) 84.6 % Critically high 43.0-75.0 [facility] Comment on above: Performed By: #### C BC ####[facility] Mfturysxif[address] [place] [address]Dr. Shahbaz Rogel Platelet mean volume (Bld) [Entitic vol] 10.0 fL Normal 9.5-13.[address] [facility] Comment on above: Performed By: #### C BC ####[facility] Lfunzvdmmy[address] [place], [place] [address]Dr. Lilajarrod Juan F PLT 165 103/ul Normal 150-450 [facility] Comment on above: Performed By: #### C BC ####[facility] U[address]pwwqqzw[address] [place], [place] [address]Dr. Shahbaz Rogel RBC 4.36 106/ul Normal 4.20-5.[address] [facility] Comment on above: Performed By: #### C BC ####[facility] Wezxmiycex[address] [place], [place] [address]Dr. Shahbaz Rogel WBC 7.8 103/ul Normal 4.0-11.[address] [facility] Comment on above: Performed By: #### C BC ####[facility] Xjleaxisrq[address] [place], [place] [address]Dr. Shahbaz Rogel ER URINE PROFILEon 2 Bilirubin Ql (U) Negative Normal NEGATIVE [facility] Comment on above: Performed By: #### E RUR ####[facility] Zbchcaalyv[address] [place], [place] [address]Dr. Shahbaz Rogel Clarity (U) CLEAR Normal CLEAR [facility] Comment on above: Performed By: #### E RUR ####[facility] Gahkufnjpj[address] [place], [place] [address]Dr. Shahbaz Rogel Color (U) LT. YELLOW Normal YELLOW [facility] Comment on above: Performed By: #### E RUR ####[facility] Caugegruth[address] [place], [place] [address]Dr. Shahbaz Rogel ERUAHD A micrscopic examina tion will be performed if indicated. Normal [facility] Comment on above: Performed By: #### E RUR ####[facility] [address]vrywkatp[address] [place], [place] [address]Dr. Shahbaz Rogel Glucose Ql (U) Negative Normal NEGATIVE [facility] Comment on above: Performed By: #### E RUR ####[facility] Folygpulul[address] [place] [address]Dr. Shahbaz Rogel Hemoglobin Ql (U) Negative Normal NEGATIVE [facility] Comment on above: Performed By: #### E RUR ####[facility] [address]zszkuuq[address] [place], [place] [address]Dr. Shahbaz Rogel Ketones Ql (U) Negative Normal NEGATIVE [facility] Comment on above: Performed By: #### E RUR ####[facility] [address]gdkaisg[address] [place], [place] [address]Dr. Shahbaz Rogel LEUKOCYTES Negative Normal NEGATIVE [facility] Comment on above: Performed By: #### E RUR ####[facility] [address]ynfvboh[address] [place], [place] [address]Dr. Shahbaz Rogel Nitrite Ql (U) Negative Normal NEGATIVE [facility] Comment on above: Performed By: #### E RUR ####[facility] Cqxtivrdnv7[address] [place], [place] [address]Dr. Shahbaz Rogel pH (U) 6.0 [pH] Normal 5-9 [facility] Comment on above: Performed By: #### E RUR ####[facility] Pmgsffrtei45[address] [place], [place] [address]Dr. Shahbaz Rogel SPEC GRAVITY 1.020 Normal 1.005-<=1. [address] [facility] Comment on above: Performed By: #### E RUR ####[facility] Nleqpbkyea220[address] [place], [place] [address]Dr. Shahbaz Rogel UA PROTEIN Negative Normal NEGATIVE/ TRACE [facility] Comment on above: Performed By: #### E RUR ####[facility] Uhknjvkpca360[address] [place], [place] [address]Dr. Shahbaz Juan F UR MICRO IND NOT INDICATED Normal [facility] Comment on above: Performed By: #### E RUR ####[facility] Ltlionpybv074157 [address] [place], [place] [address]Dr. Shahbaz Juan F Urobilinogen Qn (U) 0.2 {Melida'U}/dL Normal 0.2 - 1. [address] [facility] Comment on above: Performed By: #### E RUR ####[facility] Ooifenwpzl[address] [place] [address]Dr. Shahbaz Rogel POINT OF CARE GLUCOSEon 01-01 Glucose [Mass/Vol] 151 mg/dL Critically high 74-106 [facility] Comment on above: Performed By: #### P OCGLUC ####[facility] Nelwfxjnyg[address] [place] [address]Dr. Shahbaz Rogel Glucose [Mass/Vol] 248 mg/dL Critically high 74-106 [facility] Comment on above: Performed By: #### P OCGLUC ####[facility] Jmzfpayjdc7236 [place] [address]Dr. Shahbaz Rogel PROF 14(COMP METB)on 022 Albumin [Mass/Vol] 2.8 g/dL Critically low 3.4-5.0 [facility] Comment on above: Performed By: #### C MP ####[facility] Mzqyhhperm585[address] [place], [place] [address]Dr. Shahbaz Rogel Albumin/Globulin [Mass ratio] 0.9 {ratio} Normal [facility] Comment on above: Performed By: #### C MP ####[facility] Ipxvlndgbm1236[address] [place], [place] [address]Dr. Shahbaz Rogel ALP [Catalytic activity/Vol] 90 U/L Normal 46-[address] [facility] Comment on above: Performed By: #### C MP ####[facility] Kbvsjvmwve150[address] [place], [place] [address]Dr. Shahbaz Rogel ALT [Catalytic activity/Vol] 20 U/L Normal 14-[address] [facility] Comment on above: Performed By: #### C MP ####[facility] Bqhtfhqdkt665[address] [place], [place] [address]Dr. Shahbaz Rogel Anion gap [Moles/Vol] 8.9 mmol/L Normal [facility] Comment on above: Performed By: #### C MP ####[facility] Moqumgdnvr757[address] [place], [place] [address]Dr. Shahbaz Rogel AST [Catalytic activity/Vol] 14 U/L Critically low 15-[address] [facility] Comment on above: Performed By: #### C MP ####[facility] Nyxyhcxhyx6[address] [place] [address]Dr. Lilajarrod Juan F Bilirubin [Mass/Vol] 0.1 mg/dL Critically low 0.2-1.[address] [facility] Comment on above: Performed By: #### C MP ####[facility] Rzdjtbvhdu401[address] [place], [place] [address]Dr. Shahbaz Rogel Calcium [Mass/Vol] 8.2 mg/dL Critically low 8.5-10.1 Th e [facility] Comment on above: Performed By: #### C MP ####[facility] Wleqvrhdwg193157 [address] [place], [place] [address]Dr. Shahbaz Rogel Chloride [Moles/Vol] 110 mmol/L Critically high 98-[address] [facility] Comment on above: Performed By: #### C MP ####[facility] Hgxuvusvdv003557 [address] [place], [place] [address]Dr. Shahbaz Rogel CO2 [Moles/Vol] 28.0 mmol/L Normal 22.0-30.[address] [facility] Comment on above: Performed By: #### C MP ####[facility] Ciwvnplxhh4499[address] [place], [place] [address]Dr. Lilajarrod Juan F Creatinine [Mass/Vol] 0.78 mg/dL Normal 0.52-1.[address] [facility] Comment on above: Performed By: #### C MP ####[facility] Jczizvvbud501257 [address] [place], [place] [address]Dr. Lilajarrod Juan F EGFR-AF CITIZEN OF [place] >60 Normal >=60 [facility] Comment on above: Performed By: #### C MP ####[facility] Hzmqfxopzi0711[address] [place], [place] [address]Dr. Shahbaz Rogel EGFR-NON AF CITIZEN OF [place] >60 Normal >=60 [facility] Comment on above: Performed By: #### C MP ####[facility] Whmeqndbbm3385[address] [place], [place] [address]Dr. Shahbaz Rogel Globulin (S) [Mass/Vol] 3.1 g/dL Normal [facility] Comment on above: Performed By: #### C MP ####[facility] Xsvkfwzdiq66[address] [place] [address]Dr. Shahbaz Rogel Glucose [Mass/Vol] 121 mg/dL Critically high 74-106 [facility] Comment on above: Performed By: #### C MP ####[facility] Zdygcfxisk8069 [place] [address]Dr. Shahbaz Rogel Potassium [Moles/Vol] 3.9 mmol/L Normal 3.4-5.[address] [facility] Comment on above: Performed By: #### C MP ####[facility] Vxpjgmtgir3609 [place] [address]Dr. Shahbaz Rogel Protein [Mass/Vol] 5.9 g/dL Critically low 6.1-8.2 [facility] Comment on above: Performed By: #### C MP ####[facility] Spxnaeepko457357 [address] [place], [place] [address]Dr. Shahbaz Rogel Sodium [Moles/Vol] 143 mmol/L Normal 137-[address] [facility] Comment on above: Performed By: #### C MP ####[facility] Rfkdejtlzu0418[address] [place], [place] [address]Dr. Shahbaz Rogel Urea nitrogen [Mass/Vol] 26.0 mg/dL Critically high 7.0-18.[address] [facility] Comment on above: Performed By: #### C MP ####[facility] Tovopiquxq8637[address] [place], [place] [address]Dr. hSahbaz Rogel Urea nitrogen/Creatinine [Mass ratio] 33.3 mg/mg Normal [facility] Comment on above: Performed By: #### C MP ####[facility] Ksdwopkdsj8424[address] [place], [place] [address]Dr. Shahbaz Juan F RQRZJ-7-FDNNCGMUGMVin 2021 Oazzr-0-Wrokronlvre, Serum 154 mg/dL Normal 101-[address] [facility] Comment on above: Performed By: #### A LPHA-1 ####[facility] Xbvugpvvaj005[address] [place], [place] [address]Dr. Shahbaz Juan F CBC AUTO DIFFon 01-20-2022 BASO # 0.0 103/ul Normal 0.0-0.1 [facility] Comment on above: Performed By: #### C BC ####[facility] Nchbsekyjz4[address] [place], [place] [address]Dr. Shahbaz Rogel Basophils/100 WBC (Bld) 0.0 % Critically low 0.2-2.0 [facility] Comment on above: Performed By: #### C BC ####[facility] Dsmagyqair806357 [address] [place], [place] [address]Dr. Shahbaz Rogel EO # 0.0 103/ul Normal 0.0-0.7 [facility] Comment on above: Performed By: #### C BC ####[facility] Qrdmruwmnv039157 [address] [place], [place] [address]Dr. Shahbaz Rogel Eosinophils/100 WBC (Bld) 0.0 % Critically low 0.9-7.0 [facility] Comment on above: Performed By: #### C BC ####[facility] Xpxwjxlocu958[address] [place], [place] [address]Dr. Shahbaz Rogel Erythrocyte distribution width (RBC) [Ratio] 13.7 % Normal 11.0-15.0 [facility] Comment on above: Performed By: #### C BC ####[facility] Uzjoycvxja129457 [address] [place], [place] [address]Dr. Shahbaz Rogel Hematocrit (Bld) [Volume fraction] 41.2 % Normal 36.0-48.0 [facility] Comment on above: Performed By: #### C BC ####[facility] Ofylysyrxv509257 [address] [place], [place] [address]Dr. Shahbaz Rogel Hemoglobin (Bld) [Mass/Vol] 12.8 g/dL Normal 12.0-16.0 [facility] Comment on above: Performed By: #### C BC ####[facility] Ixdsdidtyt9100[address] [place], [place] [address]Dr. Shahbaz Rogel IG # 0.10 10e3/ul Critically high 0.00-0.03 [facility] Comment on above: Performed By: #### C BC ####[facility] Rthemixrwe14[address] [place] [address]Dr. Shahbaz Rogel IG % 0.5 % Normal 0.0-0.5 [facility] Comment on above: Performed By: #### C BC ####[facility] Qepvdtysdw0045[address] [place], [place] [address]Dr. Shahbaz Rogel LYMPH # 0.7 103/ul Critically low 1.2-3.8 [facility] Comment on above: Performed By: #### C BC ####[facility] Wkfxudvqxi2717[address] [place], [place] [address]Dr. Shahbaz Rogel Lymphocytes/100 WBC (Bld) 6.2 % Critically low 20.5-60.0 [facility] Comment on above: Result Comment: dif. not rqd. same as 01/18/22 Performed By: #### C BC ####[facility] Dhymbbthcm610[address] [place], [place] [address]Dr. Shahbaz Rogel MANUAL DIFF REQ NO Normal [facility] Comment on above: Performed By: #### C BC ####[facility] Cymusfnjzx5400[address] [place], [place] [address]Dr. Shahbaz Rogel MCH (RBC) [Entitic mass] 27.2 pg Normal 26.7-34.0 [facility] Comment on above: Performed By: #### C BC ####[facility] Jbwkbyllpw434[address] [place], [place] [address]Dr. Shahbaz Rogel MCHC (RBC) [Mass/Vol] 31.1 g/dL Normal 29.9-35.2 [facility] Comment on above: Performed By: #### C BC ####[facility] Lwixlevdpq[address] [place], [place] [address]Dr. Shahbaz Rogel MCV (RBC) [Entitic vol] 87.5 fL Normal 81.0-99.0 [facility] Comment on above: Performed By: #### C BC ####[facility] Nwubenzuff763[address] [place], [place] [address]Dr. Shahbaz Rogel MONO # 0.2 103/ul Critically low 0.3-0.8 [facility] Comment on above: Performed By: #### C BC ####[facility] Qvicohjvgl[address] [place] [address]Dr. Shahbaz Rogel Monocytes/100 WBC (Bld) 1.7 % Normal 1.7-12.[address] [facility] Comment on above: Performed By: #### C BC ####[facility] Yqugxkehrx17[address] [place] [address]Dr. Shahbaz Rogel NEUT # 9.8 103/ul Critically high 1.4-6.[address] [facility] Comment on above: Performed By: #### C BC ####[facility] Gaftfybcgc8129 [place] [address]Dr. Shahbaz Rogel Neutrophils/100 WBC (Bld) 91.6 % Critically high 43.0-75.[address] [facility] Comment on above: Performed By: #### C BC ####[facility] Nsdsspnrga7082 [place] [address]Dr. Shahbaz Rogel Platelet mean volume (Bld) [Entitic vol] 10.0 fL Normal 9.5-13.[address] [facility] Comment on above: Performed By: #### C BC ####[facility] Tcxdvsefhk4[address] [place] [address]Dr. Shahbaz Rogel PLT 198 103/ul Normal 150-[address] [facility] Comment on above: Performed By: #### C BC ####[facility] Hlqnrcmkrl5286 [place] [address]Dr. Shahbaz Rogel RBC 4.71 106/ul Normal 4.20-5.40 [facility] Comment on above: Performed By: #### C BC ####[facility] Xjqwwulxfs5607 [place] [address]Dr. Shahbaz Rogel WBC 10.7 103/ul Normal 4.0-11.0 [facility] Comment on above: Performed By: #### C BC ####[facility] Ltuiwljbij9[address] [place] [address]Dr. Shahbaz Rogel POINT OF CARE GLUCOSEon 04-2 Glucose [Mass/Vol] 157 mg/dL Critically high 74-106 [facility] Comment on above: Performed By: #### P OCGLUC ####[facility] Xtmtlbewyf6[address] [place] [address]Dr. Shahbaz Rogel Glucose [Mass/Vol] 225 mg/dL Critically high 74-106 [facility] Comment on above: Performed By: #### P OCGLUC ####[facility] Pebfafebkg6365 [place] [address]Dr. Shahbaz Rogel Glucose [Mass/Vol] 185 mg/dL Critically high 74-106 [facility] Comment on above: Performed By: #### P OCGLUC ####[facility] Grhpkmwsea4474 [place] [address]Dr. Shahbaz Rogel Glucose [Mass/Vol] 134 mg/dL Critically high -106 [facility] Comment on above: Performed By: #### P OCGLUC ####[facility] Xstffpkxxt30[address] [place] [address]Dr. Shahbaz Rogel PROF 14(COMP METB)on 022 Albumin [Mass/Vol] 3.0 g/dL Critically low 3.4-5.[address] [facility] Comment on above: Performed By: #### C MP ####[facility] Hjpfpvsrgr4582 [place] [address]Dr. Shahbaz Juan F Albumin/Globulin [Mass ratio] 0.9 {ratio} Normal [facility] Comment on above: Performed By: #### C MP ####[facility] Ruxpbocchy7[address] [place] [address]Dr. Lilajarrod Rogel ALP [Catalytic activity/Vol] 81 U/L Normal 46-[address] [facility] Comment on above: Performed By: #### C MP ####[facility] Hinhlzgmup87[address] [place] [address]Dr. Shahbaz Rogel ALT [Catalytic activity/Vol] 14 U/L Normal 14-[address] [facility] Comment on above: Performed By: #### C MP ####[facility] Voldevyzbz1559 [place] [address]Dr. Shahbaz Rogel Anion gap [Moles/Vol] 13.1 mmol/L Normal [facility] Comment on above: Performed By: #### C MP ####[facility] Fdbkvsstak6528 [place] [address]Dr. Shahbaz Rogel AST [Catalytic activity/Vol] 20 U/L Normal 15-37 [facility] Comment on above: Performed By: #### C MP ####[facility] Zfqojazvrw0209 [place] [address]Dr. Shahbaz Rogel Bilirubin [Mass/Vol] 0.3 mg/dL Normal 0.2-1.3 [facility] Comment on above: Performed By: #### C MP ####[facility] Sobcafapsa8473 [place] [address]Dr. Shahbaz Rogel Calcium [Mass/Vol] 8.5 mg/dL Normal 8.5-10.1 [facility] Comment on above: Performed By: #### C MP ####[facility] Lajqlcynjb8994 [place] [address]Dr. Shahbaz Rogel Chloride [Moles/Vol] 107 mmol/L Normal 98-107 [facility] Comment on above: Performed By: #### C MP ####[facility] Rhxxqoobml124[address] [place], [place] [address]Dr. Shahbaz Rogel CO2 [Moles/Vol] 24.0 mmol/L Normal 22.0-30.0 [facility] Comment on above: Performed By: #### C MP ####[facility] Bidorgqsxa09[address] [place] [address]Dr. Shahbaz Rogel Creatinine [Mass/Vol] 1.00 mg/dL Normal 0.52-1.04 [facility] Comment on above: Performed By: #### C MP ####[facility] Qiyblzvdus0382 [place] [address]Dr. Shahbaz Juan F EGFR-AF [place]IZ[place] >60 Normal >=60 [facility] Comment on above: Performed By: #### C MP ####[facility] Plxtjibdap8824 [place] [address]Dr. Shahbaz Juan F EGFR-NON AF CITIZEN OF [place] 57 mL/min/1.73m2 Critically low >=60 [facility] Comment on above: Performed By: #### C MP ####[facility] Rpoaiwnfjj0042 [place] [address]Dr. Shahbaz Rogel Globulin (S) [Mass/Vol] 3.4 g/dL Normal [facility] Comment on above: Performed By: #### C MP ####[facility] Eyrasniywx5087 [place] [address]Dr. Shahbaz Rogel Glucose [Mass/Vol] 153 mg/dL Critically high 74-106 [facility] Comment on above: Performed By: #### C MP ####[facility] Kamjhvzrwf9339 [place] [address]Dr. Shahbaz Rogel Potassium [Moles/Vol] 4.1 mmol/L Normal 3.4-5.0 [facility] Comment on above: Performed By: #### C MP ####[facility] Ejwdqpraaq465[address] [place], [place] [address]Dr. Shahbaz Rogel Protein [Mass/Vol] 6.4 g/dL Normal 6.1-8.2 [facility] Comment on above: Performed By: #### C MP ####[facility] Atrjqzmgqx0833[address] [place], [place] [address]Dr. Shahbaz Rogel Sodium [Moles/Vol] 140 mmol/L Normal 137-[address] [facility] Comment on above: Performed By: #### C MP ####[facility] Sjhiougzxf945[address] [place], [place] [address]Dr. Shahbaz Rogel Urea nitrogen [Mass/Vol] 26.0 mg/dL Critically high 7.0-18.0 [facility] Comment on above: Performed By: #### C MP ####[facility] Acvdbrjddi313157 [address] [place], [place] [address]Dr. Shahbaz Rogel Urea nitrogen/Creatinine [Mass ratio] 26.5 mg/mg Normal [facility] Comment on above: Performed By: #### C MP ####[facility] Khwqpqjqnw1714[address] [place], [place] [address]Dr. Shahbaz Rogel BNPon 01-19-2022 Natriuretic peptide B (Bld) [Mass/Vol] 117.0 pg/mL Normal <=900.0 [facility] Comment on above: Performed By: #### B REDUCER, CMP ####[facility] Qshqchigay8129 [place] [address]Dr. Shahbaz Rogel CBC AUTO DIFFon 01-19-2022 BASO # 0.0 103/ul Normal 0.0-0.1 [facility] Comment on above: Performed By: #### C BC ####[facility] Yrvkneyvja3997 [place] [address]Dr. Shahbaz Juan F Basophils/100 WBC (Bld) 0.0 % Critically low 0.2-2.0 [facility] Comment on above: Performed By: #### C BC ####[facility] Nokgutqmgg86[address] [place], [place] [address]Dr. Shahbaz Rogel EO # 0.0 103/ul Normal 0.0-0.7 [facility] Comment on above: Performed By: #### C BC ####[facility] Ysuihjvepa016[address] [place], [place] [address]Dr. Shahbaz Rogel Eosinophils/100 WBC (Bld) 0.0 % Critically low 0.9-7.0 [facility] Comment on above: Performed By: #### C BC ####[facility] Ajsgnaxxsb701[address] [place], [place] [address]Dr. Shahbaz Rogel Erythrocyte distribution width (RBC) [Ratio] 13.4 % Normal 11.0-15.0 [facility] Comment on above: Performed By: #### C BC ####[facility] Mapzzdwlwf6485[address] [place], [place] [address]Dr. Shahbaz Rogel Hematocrit (Bld) [Volume fraction] 46.3 % Normal 36.0-48.0 [facility] Comment on above: Performed By: #### C BC ####[facility] Rfizpqobfq757[address] [place], [place] [address]Dr. Shahbaz Rogel Hemoglobin (Bld) [Mass/Vol] 14.3 g/dL Normal 12.0-16.0 [facility] Comment on above: Performed By: #### C BC ####[facility] Dznwtzawwd692[address] [place], [place] [address]Dr. Shahbaz Rogel IG # 0.00 10e3/ul Normal 0.00-0.03 [facility] Comment on above: Performed By: #### C BC ####[facility] Uyoxjwxykl26[address] [place] [address]Dr. Lilajarrod Rogel IG % 0.0 % Normal 0.0-0.[address] [facility] Comment on above: Performed By: #### C BC ####[facility] Ldgkkhkboe9117 [place] [address]DrChen Rogel LYMPH # 0.6 103/ul Critically low 1.2-3.[address] [facility] Comment on above: Performed By: #### C BC ####[facility] Abvdjfyfjb330457 [address] [place], [place] [address]DrChen Lilajarrod Rogel Lymphocytes/100 WBC (Bld) 14.2 % Critically low 20.5-60.[address] [facility] Comment on above: Performed By: #### C BC ####[facility] Fvfmuocxoo120357 [address] [place], [place] [address]DrChen Rogel MANUAL DIFF REQ NO Normal [facility] Comment on above: Performed By: #### C BC ####[facility] Yulneywyzz067[address] [place], [place] [address]Dr. Lilajarrod Rogel MCH (RBC) [Entitic mass] 27.7 pg Normal 26.7-34.[address] [facility] Comment on above: Performed By: #### C BC ####[facility] Vhgzlojhkg634[address] [place], [place] [address]Dr. Lilajarrod Rogel MCHC (RBC) [Mass/Vol] 30.9 g/dL Normal 29.9-35.2 [facility] Comment on above: Performed By: #### C BC ####[facility] Yhpcprdrqs264[address] [place], [place] [address]DrChen Lilajarrod Rogel MCV (RBC) [Entitic vol] 89.6 fL Normal 81.0-99.0 [facility] Comment on above: Performed By: #### C BC ####[facility] Uthfhwilmp75[address] [place], [place] [address]DrChen Rogel MONO # 0.0 103/ul Critically low 0.3-0.8 [facility] Comment on above: Performed By: #### C BC ####[facility] Wxbqhqbwzv5621 [place] [address]Dr. Shahbaz Rogel Monocytes/100 WBC (Bld) 1.0 % Critically low 1.7-12.0 [facility] Comment on above: Performed By: #### C BC ####[facility] Oyondgorkc7980 [place] [address]Dr. Shahbaz Rogel NEUT # 3.5 103/ul Normal 1.4-6.5 [facility] Comment on above: Performed By: #### C BC ####[facility] Fnzmpxchea5154 [place] [address]Dr. Shahbaz Rogel Neutrophils/100 WBC (Bld) 84.8 % Critically high 43.0-75.0 [facility] Comment on above: Performed By: #### C BC ####[facility] Kynchihjay8[address] [place] [address]Dr. Shahbaz Rogel Platelet mean volume (Bld) [Entitic vol] 9.8 fL Normal 9.5-13.5 [facility] Comment on above: Performed By: #### C BC ####[facility] Ubkwaxghfn9920 [place] [address]Dr. Shahbaz Rogel PLT 185 103/ul Normal 150-450 [facility] Comment on above: Performed By: #### C BC ####[facility] Bnqfzowugl7932 [place] [address]Dr. Shahbaz Rogel RBC 5.17 106/ul Normal 4.20-5.40 [facility] Comment on above: Performed By: #### C BC ####[facility] Naqxqemubl5076 [place] [address]Dr. Shahbaz Rogel WBC 4.2 103/ul Normal 4.0-11.0 [facility] Comment on above: Performed By: #### C BC ####[facility] Suqllksgry2391 [place] [address]Dr. Shahbaz Rogel LACTATE/LACTIC ACIDon 2021 Lactate [Moles/Vol] 1.7 mmol/L Normal 0.7-2.0 [facility] Comment on above: Performed By: #### L ACT ####[facility] Udoglzrykq29[address] [place] [address]Dr. Shahbaz Rogel POINT OF CARE GLUCOSEon 01-01 Glucose [Mass/Vol] 173 mg/dL Critically high 74-106 [facility] Comment on above: Performed By: #### P OCGLUC ####[facility] Jyzjqldjby6647 [place] [address]Dr. Shahbaz Rogel Glucose [Mass/Vol] 181 mg/dL Critically high 74-106 [facility] Comment on above: Performed By: #### P OCGLUC ####[facility] Zdkvkolsud4001 [place] [address]Dr. Shahbaz Rogel Glucose [Mass/Vol] 154 mg/dL Critically high 74-106 [facility] Comment on above: Performed By: #### P OCGLUC ####[facility] Rtndfwlxjx2765 [place] [address]Dr. Shahbaz Rogel PROF 14(COMP METB)on 022 Albumin [Mass/Vol] 3.5 g/dL Normal 3.4-5.[address] [facility] Comment on above: Performed By: #### B REDUCER, CMP ####[facility] Plgjopywbo[address] [place], [place] [address]Dr. Shahbaz Rogel Albumin/Globulin [Mass ratio] 0.9 {ratio} Normal [facility] Comment on above: Performed By: #### B REDUCER, CMP ####[facility] Reycmkicep[address] [place], [place] [address]Dr. Shahbaz Rogel ALP [Catalytic activity/Vol] 107 U/L Normal 46-116 [facility] Comment on above: Performed By: #### B REDUCER, CMP ####[facility] Qhijcesaim45[address] [place], [place] [address]Dr. Shahbaz Rogel ALT [Catalytic activity/Vol] 18 U/L Normal 14-[address] [facility] [address] [facility] Comment on above: Performed By: #### B REDUCER, CMP ####[facility] Lrihyapqop508[address] [place], [place] [address]Dr. Shahbaz Rogel Anion gap [Moles/Vol] 14.1 mmol/L Normal Th e [facility] Comment on above: Performed By: #### B REDUCER, CMP ####[facility] Evorweqtdl05[address] [place], [place] [address]Dr. Shahbaz Rogel AST [Catalytic activity/Vol] 19 U/L Normal 15-37 [facility] Comment on above: Performed By: #### B REDUCER, CMP ####[facility] Foguszimzy24[address] [place], [place] [address]Dr. Shahbaz Rogel Bilirubin [Mass/Vol] 0.5 mg/dL Normal 0.2-1.3 [facility] Comment on above: Performed By: #### B REDUCER, CMP ####[facility] Nnhtiycdpt18[address] [place], [place] [address]Dr. Shahbaz Rogel Calcium [Mass/Vol] 8.5 mg/dL Normal 8.5-10.1 [facility] Comment on above: Performed By: #### B REDUCER, CMP ####[facility] Mvbhtbcalb[address] [place], [place] [address]Dr. Shahbaz Rogel Chloride [Moles/Vol] 103 mmol/L Normal 98-107 [facility] Comment on above: Performed By: #### B REDUCER, CMP ####[facility] Pdoyqdanwi455257 [address] [place], [place] [address]Dr. Shahbaz Rogel CO2 [Moles/Vol] 25.4 mmol/L Normal 22.0-30.0 [facility] Comment on above: Performed By: #### B REDUCER, CMP ####[facility] Thkutzcdal17[address] [place], [place] [address]Dr. Shahbaz Juan F Creatinine [Mass/Vol] 1.48 mg/dL Critically high 0.52-1.04 [facility] Comment on above: Performed By: #### B REDUCER, CMP ####[facility] Bhxpkrtrdq5905[address] [place], [place] [address]Dr. Shahbaz Juan F EGFR-AF CITIZEN [place] 44 mL/min/1.73m2 Critically low >=60 [facility] Comment on above: Performed By: #### B REDUCER, CMP ####[facility] [address]dtndyw[address] [place] [address]Dr. Shahbaz Rogel EGFR-NON AF CITIZEN OF [place] 36 mL/min/1.73m2 Critically low >=60 [facility] Comment on above: Performed By: #### B REDUCER, CMP ####[facility] Bensezcgtf[address] [place] [address]Dr. Shahbaz Rogel Globulin (S) [Mass/Vol] 3.7 g/dL Normal [facility] Comment on above: Performed By: #### B REDUCER, CMP ####[facility] Stnetoazzc5[address] [place], [place] [address]Dr. Shahbaz Rogel Glucose [Mass/Vol] 203 mg/dL Critically high 74-106 T [facility] Comment on above: Performed By: #### B REDUCER, CMP ####[facility] Fywxgfbdym518257 [address] [place], [place] [address]Dr. Shahbaz Rogel Potassium [Moles/Vol] 3.5 mmol/L Normal 3.4-5.0 [facility] Comment on above: Performed By: #### B REDUCER, CMP ####[facility] Hpfgztwllu460[address] [place], [place] [address]Dr. Shahbaz Rogel Protein [Mass/Vol] 7.2 g/dL Normal 6.1-8.[address] [facility] Comment on above: Performed By: #### B REDUCER, CMP ####[facility] Fuatjkuvbl9716[address] [place], [place] [address]Dr. Shahbaz Rogel Sodium [Moles/Vol] 139 mmol/L Normal 137-145 [facility] Comment on above: Performed By: #### B REDUCER, CMP ####[facility] [address]znorkml[address] [place] [address]Dr. Shahbaz Rogel Urea nitrogen [Mass/Vol] 17.0 mg/dL Normal 7.0-18.0 [facility] Comment on above: Performed By: #### B REDUCER, CMP ####[facility] Axqctztxbp208[address] [place], [place] [address]Dr. Shahbaz Rogel Urea nitrogen/Creatinine [Mass ratio] 11.5 mg/mg Normal [facility] Comment on above: Performed By: #### B REDUCER, CMP ####[facility] Lewcxprytt[address] [place] [address]Dr. Shahbaz Rogel BNPon 01-18-2022 Natriuretic peptide B (Bld) [Mass/Vol] 55.0 pg/mL Normal <=900.[address] [facility] Comment on above: Performed By: #### C MP, BNP, HSTROPN ####[facility] Knufxoqnzh[address] [place] [address]Dr. Shahbaz Rogel CBC W MANUAL DIFFon 01-19-20 22 ATYPICAL LYMPH # 0.12 103/ul Normal [facility] Comment on above: Performed By: #### C CAIN ####[facility] Rbeavujshg[address] [place], [place] [address]Dr. Shahbaz Rogel ATYPICAL LYMPH % 2 % Normal [facility] Comment on above: Performed By: #### C CAIN ####[facility] Xwnnnziesq467[address] [place], [place] [address]Dr. Shahbaz Rogel BAND # 0.0 103/ul Normal 0.0-0.3 [facility] Comment on above: Performed By: #### C CAIN ####[facility] Dhgzhilodw[address] [place], [place] [address]Dr. Shahbaz Rogel BAND % 0 % Normal 0-5 [facility] Comment on above: Performed By: #### C BCBRICE ####[facility] Piicogecep130[address] [place], [place] [address]Dr. Shahbaz Rogel BASOM # 0.00 103/ul Normal 0.00-0.10 [facility] Comment on above: Performed By: #### C BCMAN ####[facility] Nebdkdozyj48[address] [place], [place] [address]Dr. Shahbaz Rogel BASOM % 0.0 % Critically low 0.2-2.0 [facility] Comment on above: Performed By: #### C BCMAN ####[facility] Dfkullyjny916[address] [place], [place] [address]Dr. Shahbaz Rogel BLAST # Normal [facility] Comment on above: Performed By: #### C BCBRICE ####[facility] Pmvjnppcco[address] [place] [id number]. Shahbaz Rogel BLAST % Normal [facility] Comment on above: Performed By: #### C BCBRICE ####[facility] Zxgsrohhhm[address] [place] [address]Dr. Shahbaz Rogel CORRECTED WBC Normal 4.0-11.[address] [facility] Comment on above: Performed By: #### C BCMAN ####[facility] Crsywngxuu5[address] [place] [address]Dr. Shahbaz Rogel EOS # 0.25 103/ul Normal 0.00-0.70 [facility] Comment on above: Performed By: #### C BCBRICE ####[facility] Dcyfggjkzi311[address] [place], [place] [address]Dr. Shahbaz Rogel EOS% 4.0 % Normal 0.9-7.[address] [facility] Comment on above: Performed By: #### C BCBRICE ####[facility] Xnlgkonrnl044[address] [place], [place] [address]Dr. Shahbaz Rogel HCT 46.8 % Normal 36.0-48.0 [facility] Comment on above: Performed By: #### C BCBRICE ####[facility] Rhbkuaibnz8330[address] [place], [place] [address]Dr. Shahbaz Rogel HGB 14.9 g/dl Normal 12.0-16.0 [facility] Comment on above: Performed By: #### C BCBRICE ####[facility] Odvedmujzf[address] [place], [place] [address]Dr. Shahbaz Rogel LYMPHM # 0.68 103/ul Critically low 1.20-3.80 [facility] Comment on above: Performed By: #### C BCBRICE ####[facility] Hsfyossuth[address] [place], [place] [address]Dr. Shahbaz Rogel LYMPHM% 11.0 % Critically low 20.5-60.0 [facility] Comment on above: Performed By: #### C BCBRICE ####[facility] Yfdzikpcpd435[address] [place], [place] [address]Dr. Shahbaz Rogel MCH 27.6 pg Normal 26.7-34.0 [facility] Comment on above: Performed By: #### Cheri BARLOW ####[facility] Wmtsvmopyn13[address] [place] [address]Dr. Shahbaz Rogel MCHC 31.8 g/dl Normal 29.9-35.2 [facility] Comment on above: Performed By: #### Cheri BARLOW ####[facility] Gskswbcofw45[address] [place] [address]Dr. Shahbaz Rogel MCV 86.8 fL Normal 81.0-99.[address] [facility] Comment on above: Performed By: #### Cheri BARLOW ####[facility] Hbayxbutid23[address] [place] [address]Dr. Shahbaz Rogel METAMYELOCYTE # Normal [facility] Comment on above: Performed By: #### hCeri BARLOW ####[facility] Exscnzygmg5257 [place] [address]Dr. Shahbaz Rogel METAMYELOCYTE % Normal [facility] Comment on above: Performed By: #### Cheri BARLOW ####[facility] Yiyjocdbxi532[address] [place], [place] [address]Dr. Shahbaz Rogel MONOM# 0.19 103/ul Critically low 0.30-0.[address] [facility] Comment on above: Performed By: #### Cheri BARLOW ####[facility] Lrkwonkacf[address] [place] [address]Dr. Shahbaz Rogel MONOM% 3.0 % Normal 1.7-12.[address] [facility] Comment on above: Performed By: #### Cheri BARLOW ####[facility] Zbpozggeix49[address] [place] [address]Dr. Shahbaz Rogel MPV 9.6 fL Normal 9.5-13.5 [facility] Comment on above: Performed By: #### Cheri BARLOW ####[facility] Zdyrxxuepe737[address] [place], [place] [address]Dr. Shahbaz Rogel MYELOCYTE # Normal [facility] Comment on above: Performed By: #### Cheri BARLOW ####[facility] Klxyaoqndc[address] [place], [place] [address]Dr. Shahbaz Rogel MYELOCYTE % Normal [facility] Comment on above: Performed By: #### Cheri BARLOW ####[facility] Wvuccivkkb[address] [place] [address]Dr. Shahbaz Rogel NRBC Normal [facility] Comment on above: Performed By: #### Cheri BRALOW ####[facility] Mtpfvjqvvf6469 [place] [address]Dr. Shahbaz Rogel PLT 203 103/ul Normal 150-[address] [facility] Comment on above: Performed By: #### Cheri BARLOW ####[facility] Ikdxuxhwhq1533 [place] [address]Dr. Shahbaz Rogel RBC 5.39 106/ul Normal 4.20-5.[address] [facility] Comment on above: Performed By: #### Cheri BARLOW ####[facility] Duvervzksn84[address] [place], [place] [address]Dr. Shahbaz Rogel RDW 13.7 % Normal 11.0-15.[address] [facility] Comment on above: Performed By: #### Cheri BARLOW ####[facility] Aasxvjnrox38[address] [place], [place] [address]Dr. Shahbaz Rogel SEG # 4.96 103/ul Normal 1.40-6.[address] [facility] Comment on above: Performed By: #### Cheri BARLOW ####[facility] Ryzjuqokla220[address] [place], [place] [address]Dr. Shahbaz Rogel SEG % 80.0 % Critically high 43.0-75.[address] [facility] Comment on above: Performed By: #### Cheri BARLOW ####[facility] Usyoxmexsl[address] [place], [place] [address]Dr. Shahbaz Rogel WBC 6.2 103/ul Normal 4.0-11.[address] [facility] Comment on above: Performed By: #### Cheri BARLOW ####[facility] Sokatepbwx[address] [place], [place] [address]Dr. Shahbaz Rogel CULTURE BLOODon 01-18-2022 Microscopic examination of blood, culture Culture Observations: No growth at 5 days. Normal [facility] Comment on above: Performed By: #### B LDCX2 ####[facility] Ayrhkzjijb017[address] [place], [place] [address]Dr. Shahbaz Rogel Microscopic examination of blood, culture Culture Observations: No growth at 5 days Normal [facility] Comment on above: Performed By: #### B LDCX1 ####[facility] Rttccosfvd9254 [place] [address]Dr. Shahbaz Rogel [facility]on [facility]-31 SARS-CoV-2 (COVID-19) RNA PAVAN+probe Ql (Unsp spec) Not detected Normal NOT DETECTED [facility] Comment on above: Result Comment: This test is not yet approved or cleared by the [place] FDA. When there are no FDA-approved or cleared tests available, and other criteria are met, FDA can make tests available under an emergency access mechanism called an Emergency Use Authorization (EUA). The EUA for this test is supported by the [employer] Adjuster of Health and Human Service's (HHS's) declaration [...] with SARS-CoV-2. Performed By: #### C VDTBH ####[facility] Cksdgcpghe[address] [place] [address]Dr. Shahbaz Rogel D-DIMERon 01-18-2022 D-DIMER 0.29 mg/L FEU Normal 0.19-0.[address] [facility] Comment on above: Performed By: #### D DIM ####[facility] Shbambdtoq219[address] [place], [place] [address]Dr. Shahbaz Rogel D-DIMER COMMENTS SEE BELOW Normal [facility] Comment on above: Result Comment: Incr eases [...] generalized hospitalization. Performed By: #### D DIM ####[facility] Ntttgwqwuy[address] [place], [place] [address]Dr. Shahbaz Rogel INFLUENZA A AND B AGon 01-18 INFLUANEGH SEE BELOW Normal [facility] Comment on above: Result Comment: Nega tive for Flu A protein angiten. Infection due to Flu A cannot be ruled out. Flu A angiten in the sample may be below the detection limit of the test. Performed By: #### I NFLUAB ####[facility] Shhzunpxvf418[address] [place], [place] [address]Dr. Shahbaz Rogel INFLUBNEGH SEE BELOW Normal [facility] Comment on above: Result Comment: Nega tive for Flu B protein antigen. Infection due to Flu B cannot be ruled out. Flu B antigen in the sample may be below the detection limit of the test. Performed By: #### I NFLUAB ####[facility] Zsdkqlukgo75[address] [place], [place] [address]Dr. Shahbaz [facility] INFLUENZA A AG Negative Normal NEGATIVE SEE COMMENT [facility] Comment on above: Performed By: #### I NFLUAB ####[facility] Fbhzygnwmt85[address] [place], [place] [address]Dr. Shahbaz [facility] INFLUENZA B AG Negative Normal NEGATIVE SEE COMMENT [facility] Comment on above: Performed By: #### I NFLUAB ####[facility] Itcecxgmeb425[address] [place], [place] [address]Dr. Lilajarrod Rogel INTERNAL CONTROLS Within Normal Limits Normal Wi thin Normal Limits [facility] Comment on above: Performed By: #### I NFLUAB ####[facility] Uxbpyrsyrw426[address] [place], [place] [address]Dr. Shahbaz Rogel LACTATE/LACTIC ACIDon 2021 Lactate [Moles/Vol] 1.0 mmol/L Normal 0.7-2.0 [facility] Comment on above: Performed By: #### L ACT ####[facility] Inadxnbbel[address] [place] [address]Dr. Shahbaz Rogel PROF 14(COMP METB)on 022 Albumin [Mass/Vol] 3.8 g/dL Normal 3.4-5.[address] [facility] Comment on above: Performed By: #### C MP, BNP, HSTROPN ####[facility] Rqhzcmdpkx7163 [place] [address]Dr. Shahbaz Rogel Albumin/Globulin [Mass ratio] 1.0 {ratio} Normal [facility] Comment on above: Performed By: #### C MP, BNP, HSTROPN ####[facility] Pzeooiojcs[address] [place], [place] [address]Dr. Shahbaz Rogel ALP [Catalytic activity/Vol] 116 U/L Normal 46-116 [facility] Comment on above: Performed By: #### C MP, BNP, HSTROPN ####[facility] Cfvbiitzav20[address] [place], [place] [address]Dr. Shahbaz Rogel ALT [Catalytic activity/Vol] 16 U/L Normal 14-59 [facility] Comment on above: Performed By: #### C MP, BNP, HSTROPN ####[facility] Uiaihnnbsp01[address] [place], [place] [address]Dr. Shahbaz Rogel Anion gap [Moles/Vol] 9.4 mmol/L Normal [facility] Comment on above: Performed By: #### C MP, BNP, HSTROPN ####[facility] Rzqjnxbdgi45[address] [place], [place] [address]Dr. Shahbaz Rogel AST [Catalytic activity/Vol] 19 U/L Normal 15-37 [facility] Comment on above: Performed By: #### C MP, BNP, HSTROPN ####[facility] Lplzdjtqid65[address] [place], [place] [address]Dr. Shahbaz Rogel Bilirubin [Mass/Vol] 0.5 mg/dL Normal 0.2-1.3 [facility] Comment on above: Performed By: #### C MP, BNP, HSTROPN ####[facility] Whdqoglgwx[address] [place] [address]Dr. Shahbaz Rogel Calcium [Mass/Vol] 8.9 mg/dL Normal 8.5-10.1 [facility] Comment on above: Performed By: #### C MP, BNP, HSTROPN ####[facility] Bcdcwnqrjt26[address] [place] [address]Dr. Shahbaz Rogel Chloride [Moles/Vol] 104 mmol/L Normal 98-107 [facility] Comment on above: Performed By: #### C MP, BNP, HSTROPN ####[facility] Wwpmjvttvr3682 [place] [address]Dr. Shahbaz Rogel CO2 [Moles/Vol] 27.2 mmol/L Normal 22.0-30.0 [facility] Comment on above: Performed By: #### C MP, BNP, HSTROPN ####[facility] Bcvqaomqoa[address] [place], [place] [address]Dr. Shahbaz Rogel Creatinine [Mass/Vol] 0.99 mg/dL Normal 0.52-1.04 [facility] Comment on above: Performed By: #### C MP, BNP, HSTROPN ####[facility] Pomboxeqzr924[address] [place], [place] [address]Dr. Shahbaz Rogel EGFR-AF CITIZEN [place] >60 Normal >=60 [facility] Comment on above: Performed By: #### C MP, BNP, HSTROPN ####[facility] Eoovzkaxdg[address] [place], [place] [address]Dr. Shahbaz Rogel EGFR-NON AF CITIZEN OF [place] 58 mL/min/1.73m2 Critically low >=60 [facility] Comment on above: Performed By: #### C MP, BNP, HSTROPN ####[facility] Rynweqatnz[address] [place], [place] [address]Dr. Shahbaz Rogel Globulin (S) [Mass/Vol] 3.8 g/dL Normal [facility] Comment on above: Performed By: #### C MP, BNP, HSTROPN ####[facility] Qnlipowgoz2226[address] [place], [place] [address]Dr. Shahbaz Rogel Glucose [Mass/Vol] 104 mg/dL Normal 74-106 [facility] Comment on above: Performed By: #### C MP, BNP, HSTROPN ####[facility] Hlfemszkvg080[address] [place] [address]Dr. Shahbaz Rogel Potassium [Moles/Vol] 3.6 mmol/L Normal 3.4-5.0 [facility] Comment on above: Performed By: #### C MP, BNP, HSTROPN ####[facility] Zeqmserznw6[address] [place] [address]Dr. Shahbaz Rogel Protein [Mass/Vol] 7.6 g/dL Normal 6.1-8.2 [facility] Comment on above: Performed By: #### C MP, BNP, HSTROPN ####[facility] Szuomiudmz60[address] [place] [address]Dr. Shahbaz Rogel Sodium [Moles/Vol] 137 mmol/L Normal 137-145 [facility] Comment on above: Performed By: #### C MP, BNP, HSTROPN ####[facility] L[address]jsaudbws[address] [place], [place] [address]Dr. Shahbaz Rogel Urea nitrogen [Mass/Vol] 9.0 mg/dL Normal 7.0-18.0 [facility] Comment on above: Performed By: #### C MP, BNP, HSTROPN ####[facility] Lngwtsssqq7[address] [place] [address]Dr. Shahbaz Rogel Urea nitrogen/Creatinine [Mass ratio] 9.1 mg/mg Normal [facility] Comment on above: Performed By: #### C MP, BNP, HSTROPN ####[facility] Fifogqinar[address] [place], [place] [address]Dr. Shahbaz Rogel TROPONIN, HIGH SENSITIVITYon 01-18-2022 HSTROP 6.4 pg/mL Normal 4.0-35.5 [facility] Comment on above: Result Comment: CUT- OFF POINTS HAVE BEEN ESTABLISHED BASED ON THE FOURTH UNIVERSAL DEFINITIONS OF MYOCARDIALINFARCTION. THE UPPER REFERENCE LIMIT (URL) OF TROPONIN, DEFINED THE 99TH PERCENTILE OFcTnI DISTRIBUTION IN A REFERENCE POPULATION, HAS BEEN CONFIRMED THE DECISION THRESHOLDFOR ND DIAGNOSIS. Performed By: #### C MP, BNP, HSTROPN ####[facility] [address]toit[address] [place], [place] [address]Ro. Shahbaz Rogel XR CHEST 2 Von 01-18-2022 XR CHEST 2 V Normal [facility] URINALYSIS REFLEXon 04-04-20 20 Appearance (U) CLEAR Normal CLEAR [facility] Comment on above: Order Comment: No: D o not add to previous draw Performed By: #### 1 0070, 76087, 58263, 80223, 60892, 67435 #### [facility] [address] [place] [address], [place] Bilirubin [Mass/Vol] Negative Normal NEGATIVE [facility] Comment on above: Order Comment: No: D o not add to previous draw Performed By: #### 1 0070, 50365, 20819, 40940, 68080, 77391 #### [facility] [address] [place] [address], [place] BLOOD Negative Normal NEGATIVE [facility] Comment on above: Order Comment: No: D o not add to previous draw Performed By: #### 1 0070, 80015, 44854, 97377, 77438, 26568 #### [facility] [address] [place] [address], [place] Color (U) YELLOW Normal YELLOW [facility] Comment on above: Order Comment: No: D o not add to previous draw Performed By: #### 1 0070, 97685, 27157, 64899, 79668, 41720 #### [facility] [address] [place] [address], [place] Glucose [Mass/Vol] Negative Normal NEGATIVE [facility] Comment on above: Order Comment: No: D o not add to previous draw Performed By: #### 1 0070, 48351, 20048, 58603, 07004, 05266 #### [facility] [address] [place] [address], [place] KETONE Negative Normal NEGATIVE [facility] Comment on above: Order Comment: No: D o not add to previous draw Performed By: #### 1 0070, 73570, 33815, 85683, 67013, 16120 #### [facility] [address] [place] [address], [facility] [place] ELIU Negative Normal NEGATIVE [facility] Comment on above: Order Comment: No: D o not add to previous draw Performed By: #### 1 0070, 11967, 22274, 49236, 65132, 73626 #### [facility] [address] [place] [address], [facility] MICRO NOT DONE Normal [facility] Comment on above: Order Comment: No: D o not add to previous draw Result Comment: Micr oscopics not performed on urines with negative chemical reactions unless requested in original order Performed By: #### 1 0070, 97116, 37789, 66235, 67714, 31614 #### [facility] [address] [place] [address], [facility] Nitrite Ql (U) Negative Normal NEGATIVE [facility] Comment on above: Order Comment: No: D o not add to previous draw Performed By: #### 1 0070, 73966, 55238, 05307, 77016, 12472 #### [facility] [address] [place] [address], [facility] pH (Bld) 5.0 Normal 5.0-8.0 [facility] Comment on above: Order Comment: No: D o not add to previous draw Performed By: #### 1 0070, 80284, 37179, 57909, 43089, 41750 #### [facility] [address] [place] [address], [facility] Protein (U) [Mass/Vol] Negative Normal NEGATIVE Th e [facility] Comment on above: Order Comment: No: D o not add to previous draw Performed By: #### 1 0070, 42344, 72961, 35877, 44383, 45136 #### [facility] [address] [place] [address], [facility] SPEC GRAV 1.012 Low 1.015-1.02 0 [facility] Comment on above: Order Comment: No: D o not add to previous draw Performed By: #### 1 0070, 78308, 11390, 51297, 55296, 93386 #### [facility] [address] [place] [address], [facility] BASIC METABOLIC PANELon 07-0 -2019 Calcium [Mass/Vol] 8.4 mg/dL Low 8.6-10.3 [facility] Comment on above: Order Comment: No: D o not add to previous draw Performed By: #### 1 0070, 15555, 62329, 86292, 38064, 49363 #### [facility] [address] [place] [address], [facility] Chloride [Moles/Vol] 101 mmol/L Normal 98-107 [facility] Comment on above: Order Comment: No: D o not add to previous draw Performed By: #### 1 0070, 86734, 06874, 73993, 26398, 80791 #### [facility] [address] [place] [address], [facility] CO2 [Moles/Vol] 29 mmol/L Normal 21-31 [facility] Comment on above: Order Comment: No: D o not add to previous draw Performed By: #### 1 0070, 71733, 52542, 89321, 75137, 95742 #### [facility] [address] [place] [address], [place] Creatinine [Mass/Vol] 0.79 mg/dL Normal 0.60-1.20 [facility] Comment on above: Order Comment: No: D o not add to previous draw Performed By: #### 1 0070, 72460, 67403, 82300, 00117, 16171 #### [facility] [address] [place] [address], [facility] GFR/1.73 sq M predicted among blacks MDRD (S/P/Bld) [Vol rate/Area] mL/min/{1.73_m2} Normal >60 [facility] Comment on above: Order Comment: No: D o not add to previous draw Performed By: #### 1 0070, 97478, 93000, 77840, 08126, 82392 #### [facility] [address] [place] [address], [facility] GFR/1.73 sq M predicted among non-blacks MDRD (S/P/Bld) [Vol rate/Area] mL/min/{1.73_m2} Normal >60 [facility] Comment on above: Order Comment: No: D o not add to previous draw Performed By: #### 1 0070, 10539, 34686, 34366, 66508, 51542 #### [facility] [address] [place] [address], [facility] Glucose [Mass/Vol] 91 mg/dL Normal 70-100 [facility] Comment on above: Order Comment: No: D o not add to previous draw Performed By: #### 1 0070, 65586, 09707, 14710, 22468, 38564 #### [facility] [address] [place] [address], [facility] Potassium [Moles/Vol] 3.9 mmol/L Normal 3.5-5.1 [facility] Comment on above: Order Comment: No: D o not add to previous draw Performed By: #### 1 0070, 95621, 78434, 51890, 50100, 38596 #### [facility] [address] [place] [address], [place] Sodium [Moles/Vol] 133 mmol/L Low 136-145 [facility] Comment on above: Order Comment: No: D o not add to previous draw Performed By: #### 1 0070, 60431, 29413, 05938, 65993, 82501 #### [facility] [address] [facility]. [address] Urea nitrogen [Mass/Vol] 10 mg/dL Normal 7-25 [facility] Comment on above: Order Comment: No: D o not add to previous draw Performed By: #### 1 0070, 22318, 57297, 49539, 19603, 16663 #### [facility] [address] [facility] [place] [place] [address], [facility] CBC W/DIFFon 04-02-2020 ABS BASOPHILS 0.0 10*3/uL Normal 0.0-0.2 [facility] Comment on above: Order Comment: No: D o not add to previous draw Performed By: #### 1 0070, 05121, 59108, 22414, 76492, 94903 #### [facility] [address] ABS IMM GRANS 0.0 10*3/uL Normal 0.0-0.2 [facility] Comment on above: Order Comment: No: D o not add to previous draw Performed By: #### 1 0070, 60117, 41617, 34209, 18893, 09071 #### [facility] [address] [place] [address], [facility] ABS NEUTROPHILS 4.5 10*3/uL Normal 1.6-7.6 [facility] Comment on above: Order Comment: No: D o not add to previous draw Performed By: #### 1 0070, 05215, 89600, 87111, 85700, 69464 #### [facility] [address] [facility] [place] [place] [address], [facility] Basophils/100 WBC (Bld) 0.2 % Normal 0.0-1.0 [facility] Comment on above: Order Comment: No: D o not add to previous draw Performed By: #### 1 0070, 21708, 04470, 30881, 32340, 98793 #### [facility] [address] [place] [address], [facility] Eosinophils (Bld) [#/Vol] 0.2 10*3/uL Normal 0.0-0.5 [facility] Comment on above: Order Comment: No: D o not add to previous draw Performed By: #### 1 0070, 76976, 25246, 09403, 00617, 61256 #### [facility] [address] [place] [address], [facility] Eosinophils/100 WBC (Bld) 3.6 % Normal 0.0-6.0 [facility] Comment on above: Order Comment: No: D o not add to previous draw Performed By: #### 1 0070, 86646, 16381, 78800, 69863, 37777 #### [facility] [address] [place] [address], [facility] Erythrocyte distribution width (RBC) [Ratio] 12.7 % Normal 11.5-15.0 [facility] Comment on above: Order Comment: No: D o not add to previous draw Performed By: #### 1 0070, 24218, 01265, 17046, 80775, 23100 #### [facility] [address] [place] [address], [facility] Hematocrit (Bld) [Volume fraction] 42.9 % Normal 36.0-45.0 [facility] Comment on above: Order Comment: No: D o not add to previous draw Performed By: #### 1 0070, 59847, 21059, 32763, 15925, 11614 #### [facility] [address] [place] [address], [facility] Hemoglobin (Bld) [Mass/Vol] 13.5 g/dL Normal 12.0-15.0 [facility] Comment on above: Order Comment: No: D o not add to previous draw Performed By: #### 1 0070, 54282, 26510, 82179, 57339, 04847 #### [facility] [address] IMMATURE GRANS 0.3 % Normal 0.0-1.0 [facility] Comment on above: Order Comment: No: D o not add to previous draw Performed By: #### 1 0070, 05830, 93812, 60240, 44865, 95084 #### [facility] [address] [place] [address], [facility] Lymphocytes (Bld) [#/Vol] 1.1 10*3/uL Low 1.2-4.0 [facility] Comment on above: Order Comment: No: D o not add to previous draw Performed By: #### 1 0070, 09621, 26590, 77311, 04743, 87176 #### [facility] [address] [place] [address], [facility] Lymphocytes/100 WBC (Bld) 18.0 % Low 20.0-45.0 [facility] Comment on above: Order Comment: No: D o not add to previous draw Performed By: #### 1 0070, 76842, 00868, 12977, 87679, 77088 #### [facility] [address] [place] [address], [facility] MCH (RBC) [Entitic mass] 27.4 pg Normal 27.0-33.0 [facility] Comment on above: Order Comment: No: D o not add to previous draw Performed By: #### 1 0070, 99860, 81455, 93370, 59618, 03081 #### [facility] [address] [place] [address], [facility] MCHC (RBC) [Mass/Vol] 31.5 g/dL Low 32.0-35.0 [facility] Comment on above: Order Comment: No: D o not add to previous draw Performed By: #### 1 0070, 68569, 08880, 04816, 79534, 72498 #### [facility] [address] [place] [address], [facility] MCV (RBC) [Entitic vol] 87.0 fL Normal 82.0-98.0 [facility] Comment on above: Order Comment: No: D o not add to previous draw Performed By: #### 1 0070, 13483, 07665, 50757, 39842, 54488 #### [facility] [address] [place] [address], [facility] Monocytes (Bld) [#/Vol] 0.3 10*3/uL Normal 0.1-1.0 [facility] Comment on above: Order Comment: No: D o not add to previous draw Performed By: #### 1 0070, 06430, 46242, 56616, 66552, 10241 #### [facility] [address] MONOS 5.5 % Normal 5.0-12.0 [facility] Comment on above: Order Comment: No: D o not add to previous draw Performed By: #### 1 0070, 10502, 19208, 65167, 78073, 01142 #### [facility] [address] [place] [address], [facility] Neutrophils/100 WBC (Bld) 72.4 % High 40.0-72.0 [facility] Comment on above: Order Comment: No: D o not add to previous draw Performed By: #### 1 0070, 22325, 75232, 77235, 80440, 69465 #### [facility] [address] [facility] [place] [place] [address], [facility] Nucleated RBC/100 WBC (Bld) [Ratio] 0 % Normal 0-0 [facility] Comment on above: Order Comment: No: D o not add to previous draw Performed By: #### 1 0070, 51967, 56042, 54542, 80983, 58053 #### [facility] [address] [facility] [place] [id number], [facility] PLAT CNT 264 10*3/uL Normal 150-400 [facility] Comment on above: Order Comment: No: D o not add to previous draw Performed By: #### 1 0070, 87068, 11627, 01359, 19315, 32414 #### [facility] [address] [place] [address], [facility] RBC (Bld) [#/Vol] 4.93 10*6/uL Normal 3.80-5.00 [facility] Comment on above: Order Comment: No: D o not add to previous draw Performed By: #### 1 0070, 76775, 14784, 64360, 72094, 56750 #### [facility] [address] [place] [address], [facility] WBC (Bld) [#/Vol] 6.17 10*3/uL Normal 4.00-10.60 [facility] Comment on above: Order Comment: No: D o not add to previous draw Performed By: #### 1 0070, 05492, 59607, 88581, 09444, 51731 #### [facility] [address] [place] [address], [facility] MAGNESIUM BLOODon 04-02-2020 Magnesium [Mass/Vol] 2.0 mg/dL Normal 1.9-2.7 [facility] Comment on above: Order Comment: No: D o not add to previous draw Performed By: #### 1 0070, 97914, 73562, 22879, 81679, 10126 #### [facility] [address] [place] [address], [facility] PHOSPHORUS BLOODon 0 Phosphate [Mass/Vol] 3.1 mg/dL Normal 2.5-5.0 [facility] Comment on above: Order Comment: No: D o not add to previous draw Performed By: #### 1 0070, 94421, 64465, 21050, 95814, 19475 #### [facility] [address] [place] [address], [facility] POC GLUCOSE LABon 04-02-2020 Glucose [Mass/Vol] 134 mg/dL High 70-100 [facility] Comment on above: Performed By: #### 1 0070, 88489, 44984, 24157, 16234, 26765 #### [facility] [address] [place] [address], [facility] UFH HEPARIN ASSAYon 04-02-20 20 UNFRACTIONATED HEPARIN 0.91 IU/mL Critically high 0.30-0.7 0 [facility] Comment on above: Result Comment: Violet roxaban and Apixaban will interfere with the anti Xa assay used to monitor UFH and LMWH. RESULTS CHECKED AND CALLED. ACCURATELY READ BACK BY LYNN POLANCO RN @ [id number] Performed By: #### 1 0070, 03802, 24219, 71037, 63708, 88779 #### [facility] [address] [place] [address], [facility] ALBUMIN BLOODon 04-01-2020 Albumin [Mass/Vol] 3.0 g/dL Low 3.5-5.7 [facility] Comment on above: Performed By: #### 1 0070, 74620, 03318, 19910, 48181, 45781 #### [facility] [address] [place] [address], [facility] BASIC METABOLIC PANELon Calcium [Mass/Vol] 8.1 mg/dL Low 8.6-10.3 [facility] Comment on above: Order Comment: No: D o not add to previous draw Performed By: #### 1 0070, 50043, 68630, 99622, 98604, 77401 #### [facility] [address] [place] [address], [facility] Chloride [Moles/Vol] 105 mmol/L Normal 98-107 [facility] Comment on above: Order Comment: No: D o not add to previous draw Performed By: #### 1 0070, 52607, 42619, 06350, 11645, 38039 #### [facility] [address] [place] [address], [facility] CO2 [Moles/Vol] 26 mmol/L Normal 21-31 [facility] Comment on above: Order Comment: No: D o not add to previous draw Performed By: #### 1 0070, 17848, 09065, 14188, 32778, 62028 #### [facility] [address] [place] [address], [facility] Creatinine [Mass/Vol] 0.65 mg/dL Normal 0.60-1.20 [facility] Comment on above: Order Comment: No: D o not add to previous draw Performed By: #### 1 0070, 62331, 72688, 59597, 07375, 17336 #### [facility] [address] [place] [address], [facility] GFR/1.73 sq M predicted among blacks MDRD (S/P/Bld) [Vol rate/Area] mL/min/{1.73_m2} Normal >60 [facility] Comment on above: Order Comment: No: D o not add to previous draw Performed By: #### 1 0070, 09003, 58113, 14965, 04785, 54421 #### [facility] [address] [place] [address], [facility] GFR/1.73 sq M predicted among non-blacks MDRD (S/P/Bld) [Vol rate/Area] mL/min/{1.73_m2} Normal >60 [facility] Comment on above: Order Comment: No: D o not add to previous draw Performed By: #### 1 0070, 47231, 52141, 82475, 56415, 03211 #### [facility] [address] [place] [address], [place] Glucose [Mass/Vol] 87 mg/dL Normal 70-100 [facility] Comment on above: Order Comment: No: D o not add to previous draw Performed By: #### 1 0070, 48581, 74472, 67491, 85927, 33606 #### [facility] [address] [place] [address], [facility] Potassium [Moles/Vol] 4.3 mmol/L Normal 3.5-5.1 [facility] Comment on above: Order Comment: No: D o not add to previous draw Performed By: #### 1 0070, 19013, 81312, 64411, 90859, 44308 #### [facility] [address] [place] [address], [facility] Sodium [Moles/Vol] 136 mmol/L Normal 136-145 [facility] Comment on above: Order Comment: No: D o not add to previous draw Performed By: #### 1 0070, 32088, 29153, 68699, 50326, 38345 #### [facility] [address] [place] [address], [facility] Urea nitrogen [Mass/Vol] 8 mg/dL Normal 7-25 [facility] Comment on above: Order Comment: No: D o not add to previous draw Performed By: #### 1 0070, 02210, 44034, 84156, 60272, 25453 #### [facility] [address] [facility] [place] [address], [facility] CBC W/DIFFon 04-01-2020 ABS BASOPHILS 0.0 10*3/uL Normal 0.0-0.2 [facility] Comment on above: Order Comment: No: D o not add to previous draw Performed By: #### 1 0070, 34913, 29310, 00016, 75324, 97454 #### [facility] [address] [facility] [place] [place] [address], [facility] ABS IMM GRANS 0.0 10*3/uL Normal 0.0-0.2 [facility] Comment on above: Order Comment: No: D o not add to previous draw Performed By: #### 1 0070, 77260, 81906, 14334, 05694, 74206 #### [facility] [address] [place] [address], [facility] ABS NEUTROPHILS 3.4 10*3/uL Normal 1.6-7.6 [facility] Comment on above: Order Comment: No: D o not add to previous draw Performed By: #### 1 0070, 12082, 75034, 89347, 75085, 70668 #### [facility] [address] [place] [address], [facility] Basophils/100 WBC (Bld) 0.2 % Normal 0.0-1.0 [facility] Comment on above: Order Comment: No: D o not add to previous draw Performed By: #### 1 0070, 72216, 46631, 38892, 24360, 98314 #### [facility] [address] [place] [address], [facility] Eosinophils (Bld) [#/Vol] 0.1 10*3/uL Normal 0.0-0.5 [facility] Comment on above: Order Comment: No: D o not add to previous draw Performed By: #### 1 0070, 04059, 54436, 65378, 69015, 77511 #### [facility] [address] [place] [address], [facility] Eosinophils/100 WBC (Bld) 2.6 % Normal 0.0-6.0 [facility] Comment on above: Order Comment: No: D o not add to previous draw Performed By: #### 1 0070, 23138, 82957, 67420, 19170, 35130 #### [facility] [address] [place] [address], [place] Erythrocyte distribution width (RBC) [Ratio] 13.0 % Normal 11.5-15.0 [facility] Comment on above: Order Comment: No: D o not add to previous draw Performed By: #### 1 0070, 15682, 18485, 84193, 27260, 34879 #### [facility] [address] [place], [place] [address] [place] [address] Hematocrit (Bld) [Volume fraction] 40.9 % Normal 36.0-45.0 [facility] Comment on above: Order Comment: No: D o not add to previous draw Performed By: #### 1 0070, 71992, 59824, 54443, 87419, 27342 #### [facility] [address] [place] [address], [facility] Hemoglobin (Bld) [Mass/Vol] 12.8 g/dL Normal 12.0-15.0 [facility] Comment on above: Order Comment: No: D o not add to previous draw Performed By: #### 1 0070, 87637, 71938, 19850, 21326, 64811 #### [facility] [address] [place] [address], [facility] IMMATURE GRANS 0.6 % Normal 0.0-1.0 [facility] Comment on above: Order Comment: No: D o not add to previous draw Performed By: #### 1 0070, 94786, 34435, 11608, 65141, 54106 #### [facility] [address] [place] [address], [facility] Lymphocytes (Bld) [#/Vol] 1.2 10*3/uL Normal 1.2-4.0 [facility] Comment on above: Order Comment: No: D o not add to previous draw Performed By: #### 1 0070, 35713, 33017, 87086, 52465, 54018 #### [facility] [address] [place] [address], [facility] Lymphocytes/100 WBC (Bld) 23.7 % Normal 20.0-45.0 [facility] Comment on above: Order Comment: No: D o not add to previous draw Performed By: #### 1 0070, 38405, 27983, 03607, 72344, 40886 #### [facility] [address] [place] [address], [facility] MCH (RBC) [Entitic mass] 27.4 pg Normal 27.0-33.0 [facility] Comment on above: Order Comment: No: D o not add to previous draw Performed By: #### 1 0070, 87273, 95708, 32345, 22299, 13713 #### [facility] [address] [place] [address], [facility] MCHC (RBC) [Mass/Vol] 31.3 g/dL Low 32.0-35.0 [facility] Comment on above: Order Comment: No: D o not add to previous draw Performed By: #### 1 0070, 58002, 73038, 74856, 25872, 49004 #### [facility] [address] [place] [address], [facility] MCV (RBC) [Entitic vol] 87.6 fL Normal 82.0-98.0 [facility] Comment on above: Order Comment: No: D o not add to previous draw Performed By: #### 1 0070, 73430, 84421, 56617, 43863, 22552 #### [facility] [address] [place] [address], [facility] Monocytes (Bld) [#/Vol] 0.3 10*3/uL Normal 0.1-1.0 [facility] Comment on above: Order Comment: No: D o not add to previous draw Performed By: #### 1 0070, 15087, 30117, 09387, 46386, 38624 #### [facility] [address] MONOS 5.4 % Normal 5.0-12.0 [facility] Comment on above: Order Comment: No: D o not add to previous draw Performed By: #### 1 0070, 26004, 67898, 68013, 96824, 42575 #### [facility] [address] [place] [address], [facility] Neutrophils/100 WBC (Bld) 67.5 % Normal 40.0-72.0 [facility] Comment on above: Order Comment: No: D o not add to previous draw Performed By: #### 1 0070, 92881, 38707, 37370, 52824, 95953 #### [facility] [address] [place] [address], [facility] Nucleated RBC/100 WBC (Bld) [Ratio] 0 % Normal 0-0 [facility] Comment on above: Order Comment: No: D o not add to previous draw Performed By: #### 1 0070, 93109, 62103, 76099, 98097, 90142 #### [facility] [address] [place] [address], [facility] PLAT CNT 237 10*3/uL Normal 150-400 [facility] Comment on above: Order Comment: No: D o not add to previous draw Performed By: #### 1 0070, 98458, 69457, 15983, 01250, 11839 #### [facility] [address] [place] [address], [facility] RBC (Bld) [#/Vol] 4.67 10*6/uL Normal 3.80-5.00 [facility] Comment on above: Order Comment: No: D o not add to previous draw Performed By: #### 1 0070, 18242, 05213, 47110, 24827, 91020 #### [facility] [address] [place] [address], [facility] WBC (Bld) [#/Vol] 4.98 10*3/uL Normal 4.00-10.60 [facility] Comment on above: Order Comment: No: D o not add to previous draw Performed By: #### 1 0070, 82730, 56494, 91767, 50859, 86152 #### [facility] [address] [place], [place] [address] [place] [address] CHEST AND LATERALon 04-01-20 20 CHEST AND LATERAL [facility] Department of Radiology [address] [place] [id number] Patient Name: EMIGDIO ELI : 1965 Sex: F Age: Race: White Pt. Location: [id number] Patient Status: I Ordered Date: 04/01/2020 7:00:00 [...] reports Electronically signed: Shari Salcedo. Transcribed by: [email or web address], User Resident: ANNE VEGA Electronically Signed by: SHARI SALCEDO @ 04/01/2020 10:12 AM I personally read this/these film(s) with this resident Normal [facility] Comment on above: Order Comment: No: D o not add to previous draw MAGNESIUM BLOODon 04-01-2020 Magnesium [Mass/Vol] 2.1 mg/dL Normal 1.9-2.7 [facility] Comment on above: Order Comment: No: D o not add to previous draw Performed By: #### 1 0070, 26862, 41817, 16394, 00677, 52169 #### [facility] [address] [place] [address], [facility] APTTon 03-31-2020 aPTT Coag (Bld) [Time] 28.3 s Normal 25.0-35.0 Th e [facility] [...] THIS PURPOSE. Performed By: #### 1 0070, 23551, 87583, 02119, 77074, 10471 #### [facility] [address] [place] [address], [place] BASIC METABOLIC PANELon 03-04 Calcium [Mass/Vol] 7.8 mg/dL Low 8.6-10.3 [facility] Comment on above: Order Comment: No: D o not add to previous draw Performed By: #### 1 0070, 67222, 51906, 45493, 27081, 43348 #### [facility] [address] [place] [address], [facility] Chloride [Moles/Vol] 108 mmol/L High 98-107 [facility] Comment on above: Order Comment: No: D o not add to previous draw Performed By: #### 1 0070, 79002, 33665, 71072, 73972, 36535 #### [facility] [address] [place] [address], [facility] CO2 [Moles/Vol] 26 mmol/L Normal 21-31 [facility] Comment on above: Order Comment: No: D o not add to previous draw Performed By: #### 1 0070, 17291, 90599, 18708, 38251, 20394 #### [facility] [address] [place] [address], [facility] Creatinine [Mass/Vol] 0.76 mg/dL Normal 0.60-1.20 [facility] Comment on above: Order Comment: No: D o not add to previous draw Performed By: #### 1 0070, 32853, 38685, 51941, 96407, 96288 #### [facility] [address] [place] [address], [facility] GFR/1.73 sq M predicted among blacks MDRD (S/P/Bld) [Vol rate/Area] mL/min/{1.73_m2} Normal >60 [facility] Comment on above: Order Comment: No: D o not add to previous draw Performed By: #### 1 0070, 85746, 99624, 16909, 01954, 24484 #### [facility] [address] [place] [address], [place] GFR/1.73 sq M predicted among non-blacks MDRD (S/P/Bld) [Vol rate/Area] mL/min/{1.73_m2} Normal >60 [facility] Comment on above: Order Comment: No: D o not add to previous draw Performed By: #### 1 0070, 50947, 76230, 86414, 04443, 60331 #### [facility] [address] [place] [address], [facility] Glucose [Mass/Vol] 97 mg/dL Normal 70-100 [facility] Comment on above: Order Comment: No: D o not add to previous draw Performed By: #### 1 0070, 32052, 15423, 80752, 91386, 13323 #### [facility] [address] [place] [address], [facility] Potassium [Moles/Vol] 3.2 mmol/L Low 3.5-5.1 [facility] Comment on above: Order Comment: No: D o not add to previous draw Performed By: #### 1 0070, 92679, 09331, 74809, 69093, 47247 #### [facility] [address] [facility] [place] [address], [facility] Sodium [Moles/Vol] 140 mmol/L Normal 136-145 [facility] Comment on above: Order Comment: No: D o not add to previous draw Performed By: #### 1 0070, 87147, 56412, 40398, 29049, 88768 #### [facility] [address] [place] [address], [facility] Urea nitrogen [Mass/Vol] 15 mg/dL Normal 7-25 [facility] Comment on above: Order Comment: No: D o not add to previous draw Performed By: #### 1 0070, 85147, 10493, 97016, 80274, 85049 #### [facility] [address] [facility] [place] [place] [address], [facility] CBC W/DIFFon 03-31-2020 ABS BASOPHILS 0.0 10*3/uL Normal 0.0-0.2 [facility] Comment on above: Order Comment: No: D o not add to previous draw Performed By: #### 1 0070, 99989, 35521, 06911, 81036, 63248 #### [facility] [address] [place] [address], [facility] ABS IMM GRANS 0.0 10*3/uL Normal 0.0-0.2 [facility] Comment on above: Order Comment: No: D o not add to previous draw Performed By: #### 1 0070, 74399, 70496, 22844, 44529, 56882 #### [facility] [address] [place] [address], [facility] ABS NEUTROPHILS 3.2 10*3/uL Normal 1.6-7.6 [facility] Comment on above: Order Comment: No: D o not add to previous draw Performed By: #### 1 0070, 61658, 34376, 19948, 92357, 02613 #### [facility] [address] [place] [address], [facility] Basophils/100 WBC (Bld) 0.2 % Normal 0.0-1.0 [facility] Comment on above: Order Comment: No: D o not add to previous draw Performed By: #### 1 0070, 41830, 67907, 10437, 83935, 75527 #### [facility] [address] [place] [address], [facility] Eosinophils (Bld) [#/Vol] 0.0 10*3/uL Normal 0.0-0.5 [facility] Comment on above: Order Comment: No: D o not add to previous draw Performed By: #### 1 0070, 50589, 86201, 25791, 15947, 01240 #### [facility] [address] [place] [address], [facility] Eosinophils/100 WBC (Bld) 0.4 % Normal 0.0-6.0 [facility] Comment on above: Order Comment: No: D o not add to previous draw Performed By: #### 1 0070, 82999, 62840, 98242, 26734, 17557 #### [facility] [address] [place] [address], [facility] Erythrocyte distribution width (RBC) [Ratio] 13.0 % Normal 11.5-15.0 [facility] Comment on above: Order Comment: No: D o not add to previous draw Performed By: #### 1 0070, 58291, 77121, 64463, 17277, 27776 #### [facility] [address] [place] [address], [facility] Hematocrit (Bld) [Volume fraction] 34.4 % Low 36.0-45.0 [facility] Comment on above: Order Comment: No: D o not add to previous draw Performed By: #### 1 0070, 59057, 55703, 86786, 14030, 40792 #### [facility] [address] [place] [address], [facility] Hemoglobin (Bld) [Mass/Vol] 10.8 g/dL Low 12.0-15.0 [facility] Comment on above: Order Comment: No: D o not add to previous draw Performed By: #### 1 0070, 00350, 83576, 29724, 36356, 25837 #### [facility] [address] [place] [address], [facility] IMMATURE GRANS 0.4 % Normal 0.0-1.0 [facility] Comment on above: Order Comment: No: D o not add to previous draw Performed By: #### 1 0070, 09319, 24268, 83901, 38820, 13116 #### [facility] [address] [place] [address], [facility] Lymphocytes (Bld) [#/Vol] 1.2 10*3/uL Normal 1.2-4.0 [facility] Comment on above: Order Comment: No: D o not add to previous draw Performed By: #### 1 0070, 99345, 31988, 37613, 20614, 13084 #### [facility] [address] [place] [address], [facility] Lymphocytes/100 WBC (Bld) 25.7 % Normal 20.0-45.0 [facility] Comment on above: Order Comment: No: D o not add to previous draw Performed By: #### 1 0070, 77419, 41021, 77263, 22202, 09969 #### [facility] [address] [place] [address], [facility] MCH (RBC) [Entitic mass] 27.5 pg Normal 27.0-33.0 [facility] Comment on above: Order Comment: No: D o not add to previous draw Performed By: #### 1 0070, 46611, 50049, 56745, 84088, 72286 #### [facility] [address] [place] [address], [facility] MCHC (RBC) [Mass/Vol] 31.4 g/dL Low 32.0-35.0 [facility] Comment on above: Order Comment: No: D o not add to previous draw Performed By: #### 1 0070, 18120, 07206, 49770, 82216, 92001 #### [facility] [address] [place] [address], [facility] MCV (RBC) [Entitic vol] 87.5 fL Normal 82.0-98.0 [facility] Comment on above: Order Comment: No: D o not add to previous draw Performed By: #### 1 0070, 98859, 16435, 36809, 45974, 88308 #### [facility] [address] [facility] [place] [address], [facility] Monocytes (Bld) [#/Vol] 0.3 10*3/uL Normal 0.1-1.0 [facility] Comment on above: Order Comment: No: D o not add to previous draw Performed By: #### 1 0070, 80114, 39021, 94692, 32402, 99502 #### [facility] [address] [place] [address], [facility] MONOS 6.2 % Normal 5.0-12.0 [facility] Comment on above: Order Comment: No: D o not add to previous draw Performed By: #### 1 0070, 32886, 51037, 51024, 66975, 04810 #### [facility] [address] [place] [address], [facility] Neutrophils/100 WBC (Bld) 67.1 % Normal 40.0-72.0 [facility] Comment on above: Order Comment: No: D o not add to previous draw Performed By: #### 1 0070, 77874, 30801, 58874, 05327, 67463 #### [facility] [address] [place] [address], [facility] Nucleated RBC/100 WBC (Bld) [Ratio] 0 % Normal 0-0 [facility] Comment on above: Order Comment: No: D o not add to previous draw Performed By: #### 1 0070, 75660, 31438, 46699, 86204, 09777 #### [facility] [address] [facility] [place] [address], [facility] PLAT CNT 210 10*3/uL Normal 150-400 [facility] Comment on above: Order Comment: No: D o not add to previous draw Performed By: #### 1 0070, 65214, 16626, 18145, 67933, 21732 #### [facility] [address] [facility] [place] [address], [facility] RBC (Bld) [#/Vol] 3.93 10*6/uL Normal 3.80-5.00 [facility] Comment on above: Order Comment: No: D o not add to previous draw Performed By: #### 1 0070, 37499, 00352, 57479, 71502, 45622 #### [facility] [address] [facility] [place] [address], [facility] WBC (Bld) [#/Vol] 4.71 10*3/uL Normal 4.00-10.60 [facility] Comment on above: Order Comment: No: D o not add to previous draw Performed By: #### 1 0070, 46275, 84030, 43281, 41386, 66462 #### [facility] [address] [facility] [place] [place] [address], [facility] Cardiovascular Lab Reporton 03-31-2020 Cardiovascular Lab Report [facility] Patient Name: [facility] S MR #: [id number] Department of Physician: Rebecca Weaver M.D. Medicine Service Date: 03/31/2020 Division of Birthdate: 1965 Cardiology Room #: [id number] Adult Cardiovascular Services [facility] [address] [place], [place] [address] Cardiovascular Laboratory Report INDICATIONS FOR PACEMAKER PLACEMENT: [...] Weaver M.D. Date Trans: 03/31/2020 03:35 P/jamal [id number] cc: Tony Hines M.D. Heart Failure/ Transplant Mailstop [address] [facility] [address] Normal [facility] MAGNESIUM BLOODon 03-31-2020 Magnesium [Mass/Vol] 1.8 mg/dL Low 1.9-2.7 [facility] Comment on above: Order Comment: No: D o not add to previous draw Performed By: #### 1 0070, 22161, 79087, 79638, 35011, 01689 #### [facility] [address] [place] [address], [facility] PHOSPHORUS BLOODon 0 Phosphate [Mass/Vol] 2.7 mg/dL Normal 2.5-5.0 [facility] Comment on above: Order Comment: No: D o not add to previous draw Performed By: #### 1 0070, 20818, 95691, 01803, 09672, 93864 #### [facility] [address] [place] [address], [facility] PROTHROMBIN TIMEon 03-31-202 0 INR Coag (PPP) [Relative time] 1.11 {INR} Normal 0.91-1.16 [facility] [...] CHEST 1995;108:231S-246S. Performed By: #### 1 0070, 17523, 06091, 17121, 89945, 78732 #### [facility] [address] [place] [address], [facility] PT Coag (PPP) [Time] 14.3 s Normal 12.3-14.8 [facility] Comment on above: Order Comment: No: D o not add to previous draw Result Comment: ALL RESULTS MUST BE INTERPRETED WITH RESPECT TO BLOOD DRAWING ARTIFACT OR DILUTION ERROR OF ANTICOAGULANT AT THE TIME OF SAMPLING. Performed By: #### 1 0070, 41168, 82430, 78703, 25085, 22099 #### [facility] [address] *SARS-CoV-2 COVID-19on 03-30 [id number] Not Detected Normal Not Detected [facility] Comment on above: Order Comment: No: D o not add to previous draw Performed By: #### 1 0070, 56895, 87138, 50659, 40682, 58355 #### [facility] [address] APTTon 03-30-2020 aPTT Coag (Bld) [Time] 24.9 s Low 25.0-35.0 Th e [facility] [...] THIS PURPOSE. Performed By: #### 5 7307, 83990 #### [facility] [address] BASIC METABOLIC PANELon 03-03 Calcium [Mass/Vol] 8.9 mg/dL Normal 8.6-10.3 [facility] Comment on above: Order Comment: No: D o not add to previous draw Performed By: #### 1 0070, 13634, 66917, 86184, 93800, 02752 #### [facility] [address] [place] [address], [facility] Chloride [Moles/Vol] 110 mmol/L High 98-107 [facility] Comment on above: Order Comment: No: D o not add to previous draw Performed By: #### 1 0070, 84909, 53297, 89359, 51924, 29849 #### [facility] [address] [place] [address], [facility] CO2 [Moles/Vol] 26 mmol/L Normal 21-31 [facility] Comment on above: Order Comment: No: D o not add to previous draw Performed By: #### 1 0070, 70504, 17957, 90227, 21042, 63190 #### [facility] [address] [place] [address], [facility] Creatinine [Mass/Vol] 0.86 mg/dL Normal 0.60-1.20 [facility] Comment on above: Order Comment: No: D o not add to previous draw Performed By: #### 1 0070, 53960, 54907, 49808, 75046, 26043 #### [facility] [address] [place] [address], [facility] GFR/1.73 sq M predicted among blacks MDRD (S/P/Bld) [Vol rate/Area] mL/min/{1.73_m2} Normal >60 [facility] Comment on above: Order Comment: No: D o not add to previous draw Performed By: #### 1 0070, 05356, 04110, 67394, 41668, 45380 #### [facility] [address] [place] [address], [facility] GFR/1.73 sq M predicted among non-blacks MDRD (S/P/Bld) [Vol rate/Area] mL/min/{1.73_m2} Normal >60 [facility] Comment on above: Order Comment: No: D o not add to previous draw Performed By: #### 1 0070, 54682, 51522, 03372, 49088, 35470 #### [facility] [address] [place] [address], [place] Glucose [Mass/Vol] 119 mg/dL High 70-100 [facility] Comment on above: Order Comment: No: D o not add to previous draw Performed By: #### 1 0070, 36100, 65083, 46280, 50645, 54932 #### [facility] [address] Potassium [Moles/Vol] 3.5 mmol/L Normal 3.5-5.1 [facility] Comment on above: Order Comment: No: D o not add to previous draw Performed By: #### 1 0070, 44982, 29570, 95269, 57630, 70989 #### [facility] [address] Sodium [Moles/Vol] 142 mmol/L Normal 136-145 [facility] Comment on above: Order Comment: No: D o not add to previous draw Performed By: #### 1 0070, 93621, 98584, 93992, 83059, 51606 #### [facility] [address] Urea nitrogen [Mass/Vol] 13 mg/dL Normal 7-25 [facility] Comment on above: Order Comment: No: D o not add to previous draw Performed By: #### 1 0070, 46208, 48489, 08109, 58378, 76595 #### [facility] [address] [facility] [place] [address], [facility] CBC W/DIFFon 03-30-2020 ABS BASOPHILS 0.0 10*3/uL Normal 0.0-0.2 [facility] Comment on above: Performed By: #### 5 0103 #### [facility] [address] [facility] ABS IMM GRANS 0.0 10*3/uL Normal 0.0-0.2 [facility] Comment on above: Performed By: #### 5 3 #### [facility] [address] [place] [address], [facility] ABS NEUTROPHILS 5.7 10*3/uL Normal 1.6-7.6 [facility] Comment on above: Performed By: #### 5 0103 #### [facility] [address] [place] [address], [facility] Basophils/100 WBC (Bld) 0.0 % Normal 0.0-1.0 [facility] Comment on above: Performed By: #### 5 0103 #### [facility] [address] [place] [address], [facility] Eosinophils (Bld) [#/Vol] 0.0 10*3/uL Normal 0.0-0.5 [facility] Comment on above: Performed By: #### 5 0103 #### [facility] [address] [place] [address], [facility] Eosinophils/100 WBC (Bld) 0.0 % Normal 0.0-6.0 [facility] Comment on above: Performed By: #### 5 3 #### [facility] [address] Erythrocyte distribution width (RBC) [Ratio] 12.9 % Normal 11.5-15.0 [facility] Comment on above: Performed By: #### 5 0103 #### [facility] [address] Hematocrit (Bld) [Volume fraction] 36.1 % Normal 36.0-45.0 [facility] Comment on above: Performed By: #### 5 0103 #### [facility] [address] [place] [address], [facility] Hemoglobin (Bld) [Mass/Vol] 11.5 g/dL Low 12.0-15.0 [facility] Comment on above: Performed By: #### 5 0103 #### [facility] [address] [place] [address], [facility] IMMATURE GRANS 0.5 % Normal 0.0-1.0 [facility] Comment on above: Performed By: #### 5 0103 #### [facility] [address] Lymphocytes (Bld) [#/Vol] 0.6 10*3/uL Low 1.2-4.0 [facility] Comment on above: Performed By: #### 5 0103 #### [facility] [address] Lymphocytes/100 WBC (Bld) 9.3 % Low 20.0-45.0 [facility] Comment on above: Performed By: #### 5 0103 #### [facility] [address] MCH (RBC) [Entitic mass] 27.4 pg Normal 27.0-33.0 [facility] Comment on above: Performed By: #### 5 3 #### [facility] [address] MCHC (RBC) [Mass/Vol] 31.9 g/dL Low 32.0-35.0 [facility] Comment on above: Performed By: #### 3 #### [facility] [address] MCV (RBC) [Entitic vol] 86.0 fL Normal 82.0-98.0 [facility] Comment on above: Performed By: #### 5 3 #### [facility] [address] [place] [address], [facility] Monocytes (Bld) [#/Vol] 0.2 10*3/uL Normal 0.1-1.0 [facility] Comment on above: Performed By: #### 5 3 #### [facility] [address] [place] [address], [facility] MONOS 2.5 % Low 5.0-12.0 [facility] Comment on above: Performed By: #### 5 3 #### [facility] [address] [place] [address], [facility] Neutrophils/100 WBC (Bld) 87.7 % High 40.0-72.0 [facility] Comment on above: Performed By: #### 5 0103 #### [facility] [address] [facility] [place] [address], [facility] Nucleated RBC/100 WBC (Bld) [Ratio] 0 % Normal 0-0 [facility] Comment on above: Performed By: #### 5 0103 #### [facility] [address] [place] [address], [facility] PLAT CNT 261 10*3/uL Normal 150-400 [facility] Comment on above: Performed By: #### 5 0103 #### [facility] [address] [place] [address], [facility] RBC (Bld) [#/Vol] 4.20 10*6/uL Normal 3.80-5.00 [facility] Comment on above: Performed By: #### 5 0103 #### [facility] [address] [facility] [place] [address], [facility] WBC (Bld) [#/Vol] 6.47 10*3/uL Normal 4.00-10.60 [facility] Comment on above: Performed By: #### 5 3 #### [facility] [address] FREE T4on 03-30-2020 Free T4 [Mass/Vol] 1.48 ng/dL Normal 0.71-1.85 [facility] Comment on above: Performed By: #### 1 0070, 97078, 97148, 90674, 93297, 90747 #### [facility] [address] [place] [address], [facility] MAGNESIUM BLOODon 03-30-2020 Magnesium [Mass/Vol] 2.0 mg/dL Normal 1.9-2.7 [facility] Comment on above: Order Comment: No: D o not add to previous draw Performed By: #### 1 0070, 10628, 46898, 09969, 21850, 29080 #### [facility] [address] [place] [address], [facility] PHOSPHORUS BLOODon 0 Phosphate [Mass/Vol] 2.8 mg/dL Normal 2.5-5.0 [facility] Comment on above: Order Comment: No: D o not add to previous draw Performed By: #### 1 0070, 79311, 27911, 08096, 40120, 91446 #### [facility] [address] [place] [address], [facility] PROTHROMBIN TIMEon 0 INR Coag (PPP) [Relative time] 1.21 {INR} High 0.91-1.16 [facility] [...] CHEST 1995;108:231S-246S. Performed By: #### 5 7307, 65662 #### [facility] [address] [place] [address], [facility] PT Coag (PPP) [Time] 15.4 s High 12.3-14.8 [facility] Comment on above: Order Comment: No: D o not add to previous draw Result Comment: ALL RESULTS MUST BE INTERPRETED WITH RESPECT TO BLOOD DRAWING ARTIFACT OR DILUTION ERROR OF ANTICOAGULANT AT THE TIME OF SAMPLING. Performed By: #### 5 7307, 60084 #### [facility] [address] TROPONIN-Ion 03-30-2020 Troponin I.cardiac [Mass/Vol] 0.02 ng/mL Normal 0.00-0.04 [facility] Comment on above: Order Comment: No: D o not add to previous draw Result Comment: REFE RENCE RANGES: 0.00 - 0.04 ng/ml NORMAL 0.05 - 0.50 ng/ml INDETERMINATE > 0.50 ng/ml CONSISTENT WITH AN M.I. Performed By: #### 1 0070, 08097, 55329, 66044, 89971, 55450 #### [facility] [address] Troponin I.cardiac [Mass/Vol] 0.04 ng/mL Normal 0.00-0.04 [facility] Comment on above: Order Comment: No: D o not add to previous draw Result Comment: REFE RENCE RANGES: 0.00 - 0.04 ng/ml NORMAL 0.05 - 0.50 ng/ml INDETERMINATE > 0.50 ng/ml CONSISTENT WITH AN M.I. Performed By: #### 3 5200 #### [facility] [address] [place] [address], [facility] Troponin I.cardiac [Mass/Vol] 0.04 ng/mL Normal 0.00-0.04 [facility] Comment on above: Order Comment: No: D o not add to previous draw Result Comment: REFE RENCE RANGES: 0.00 - 0.04 ng/ml NORMAL 0.05 - 0.50 ng/ml INDETERMINATE > 0.50 ng/ml CONSISTENT WITH AN M.I. Performed By: #### 1 0070, 30835, 86538, 38039, 76992, 87764 #### [facility] [address] TSH3 WITH REFLEX FT4on 03-30 TSH 3RD GENERATION 0.02 uIU/mL Low 0.34-5.60 [facility] Comment on above: Performed By: #### 1 0070, 66975, 47122, 86806, 58183, 93243 #### [facility] [address] [facility] [address] Vital Signs Date Time Vital Sign Value Performing Clinician Faci lity 06-13-2024 12:13-0400 Body height 152.3 cm Zoila Monae MD Work Phone: [facility] 06-13-2024 12:13-0400 Body mass index (BMI) [Ratio] 19.98 kg/m2 Zoila Monae MD Work Phone: [facility] 06-13-2024 12:13-0400 Body weight 46.35 kg Zoila Monae MD Work Phone: [facility] 06-13-2024 12:13-0400 Diastolic blood pressure 77 mm[Hg] Zoila Monae MD Work Phone: [facility] 06-13-2024 12:13-0400 Heart rate 74 /min Zoila Monae MD Work Phone: [facility] 06-13-2024 12:13-0400 Systolic blood pressure 107 mm[Hg] Zoila Monae MD Work Phone: [facility] 03-06-2024 13:46-0400 Body height 153.5 cm Zoila Monae MD Work Phone: [facility] 03-06-2024 13:46-0400 Body mass index (BMI) [Ratio] 19.1 kg/m2 Zoila Monae MD Work Phone: [facility] 03-06-2024 13:46-0400 Body temperature 97.2 [degF] Zoila Monae MD Work Phone: [facility] 03-06-2024 13:46-0400 Body weight 45 kg Zoila Monae MD Work Phone: [facility] 03-06-2024 13:46-0400 Diastolic blood pressure 68 mm[Hg] Zoila Monae MD Work Phone: [facility] 03-06-2024 13:46-0400 Heart rate 106 /min Zoila Monae MD Work Phone: [facility] 03-06-2024 13:46-0400 Systolic blood pressure 101 mm[Hg] Zoila Monae MD Work Phone: [facility] 08-12-2022 15:32-0500 Body temperature 98.1 [degF] MD Tony Amaya Work Phone: [facility] 08-12-2022 15:32-0500 Diastolic blood pressure 69 mm[Hg] MD Tony Amaya Work Phone: [facility] 08-12-2022 15:32-0500 Heart rate 78 /min MD Tony Amaya Work Phone: [facility] 08-12-2022 15:32-0500 Respiratory rate 16 /min MD Tony Amaya Work Phone: [facility] 08-12-2022 15:32-0500 SaO2% (BldA) [Mass fraction] 94 % MD Tony Amaya Work Phone: [facility] 08-12-2022 15:32-0500 Systolic blood pressure 129 mm[Hg] MD Tony Amaya Work Phone: [facility] 08-12-2022 11:00-0500 Inhaled oxygen flow rate 3 L/min MD Tony Amaya Work Phone: [facility] 08-11-2022 12:39-0500 Body height 152.4 cm MD Tony Amaya Work Phone: [facility] 08-11-2022 06:00-0500 Body weight 44.9 kg MD Tony Amaya Work Phone: [facility] 08-10-2022 15:030500 Body mass index (BMI) [Ratio] 19.1 kg/m2 MD Tony Amaya Work Phone: [facility] 08-03-2022 14:270400 Body weight 0 kg MD Tony Amaya Work Phone: [facility] Encounters Encounter Date Encounter Type Care Provider Facility Start: 06-25-2024 ambulatory Alejandro Flaherty acility:[facility] Start: 06-24-2024 End: 06-24-2024 ambulatory LENKA Smith APLING Not Available Start: 06-13-2024 End: 06-13-2024 ambulatory LINCOLNTIFFANY BARNETTWAL Facility:[facility] Start: 06-13-2024 End: 06-13-2024 Patient encounter procedure Zoila Monae MD Work Phone: Neurology [facility] Comment on above: Transient neurologic al symptoms (Primary Dx) Start: 06-11-2024 ambulatory ZOILA MONAE Facili ty:[facility] Start: 06-11-2024 End: 06-11-2024 Subsequent hospital visit by physician Eeg [facility] Work Phone: [facility] EEG Comment on above: Memory deficit [R41. 3] Start: 06-04-2024 End: 06-04-2024 Orders Only Zoila Monae MD Work Phone: [facility] Comment on above: Memory deficit (Prim isamar Dx); Auditory hallucinations; Mentally challenged Start: 05-28-2024 End: 05-28-2024 ambulatory [facility] Start: 03-06-2024 End: 03-06-2024 ambulatory TONY AMAYA Facility:[facility] Start: 03-06-2024 End: 03-06-2024 Patient encounter procedure Zoila Monae MD Work Phone: [facility] Comment on above: Memory deficit (Prim isamar Dx); Auditory hallucinations; Mentally challenged Start: 02-20-2024 Emergency department patient visit REGAN JOVAN [facility] Start: 02-20-2024 End: 02-20-2024 Emergency department patient visit CASSANDRA ALCANTARA [facility] Start: 02-01-2024 End: 02-01-2024 ambulatory TONY AMAYA [facility] Start: 01-01-2024 Emergency department patient visit GURDEEP KIRKPATRICK [facility] Start: 01-01-2024 End: 01-05-2024 Evaluation and management of inpatient PAM WAY [facility] Start: 10-24-2023 End: 10-24-2023 ambulatory MARI LOCKWOOD [facility] Start: 01-03-2023 End: 01-07-2023 Evaluation and management of inpatient DR TONY AMAYA . Facility:[facility] Start: 11-01-2022 End: 11-02-[address] TONY AMAYA . Facility:[facility] Start: 09-30-2022 End: 10-01-[address] ROSALINA BAUTISTA Facility:[facility] Start: 09-02-2022 End: 09-02-2022 ambulatory MD Tony Amaya Work Phone: [facility] Work Phone: Start: 09-02-2022 End: 09-02-2022 Patient encounter procedure MD Tony Amaya Work Phone: [facility] [place] Start: 08-25-2022 End: 08-25-[address] ROSALINA BAUTISTA Facility:[facility] Start: 08-10-2022 End: 08-12-2022 Admission to same day surgery center MD Tony Amaya Work Phone: [facility] [place] Start: 08-10-2022 End: 08-12-2022 ambulatory MD Tony Amaya Work Phone: [facility] Work Phone: Start: 08-08-2022 End: 08-08-2022 ambulatory MD Tony Amaya Work Phone: [facility] Work Phone: Start: 08-08-2022 End: 08-08-2022 Departed Referred MD Tony Amaya Work Phone: [facility] [place] Start: 08-05-2022 End: 08-05-2022 ambulatory MD Tony Amaya Work Phone: [facility] Work Phone: Start: 08-05-2022 End: 08-05-2022 Patient encounter procedure MD Tony Amaya Work Phone: [facility]-Iqfylpmj Testing Start: 07-30-2022 End: 07-30-[address] ROSALINA BAUTISTA Facility:[facility] Start: 07-04-2022 End: 07-06-[address] TONY AMAYA . Facility:[facility] Start: 07-04-2022 End: 07-04-[address] ALBERTO FERRO Facility:[facility] Start: 06-29-2022 Encounter for preprocedural laboratory examination NADEGE GARDNER . [facility] Start: 06-27-2022 End: 06-28-2022 ambulatory NADEGE GARDNER [...] Work Phone: Start: 06-11-2024 Electroencephalogram w/rec awake&drowsy [facility] Start: 09-02-2022 Plain chest X-ray MD Tony [...] REBECCA MARTHA Acid fast bacilli culture MD oTny Amaya Work Phone: Acid fast stain method MD Torres Work Phone: Aerobic microbial culture MD Tony Amaya Work Phone: Anaerobic microbial culture MD Tony Amaya Work Phone: Urine culture MD Tony Amaya Work Phone: Plan of Treatment Date Care Activity Detail Author Start: 02-19-2027 Diabetes Screening Diabetes Screenin g [facility] Start: 06-13-2024 End: 06-13-2024 Patient encounter procedure 06/13/2024 12:30 PM EDT Office Visit Neurology [facility] [address] [place] [address] [place] [address] [place] [address] Return in about 3 months (around 06/06/2024) for with Dr. Monae. [facility] Comment on above: Return in about 3 mo nths (around 06/06/2024) for with Dr. Monae. Start: 06-11-2024 End: 06-11-2024 Patient encounter procedure 06/11/2024 9:00 AM EDT Appointment [facility] EEG [address] [id number] Memory deficit [R41.3] [facility] EEG Comment on above: Memory deficit [R41. 3] Start: 06-02-2024 Covid-19 Vaccine () Covid-19 Vaccine () [facility] Start: 06-02-2024 Influenza vaccination C [facility] Start: 03-29-2024 End: 03-29-2024 Patient encounter procedure 03/29/2024 11:45 AM EDT Office Visit Neurology [address] [place] [id number] Memory deficit [R41.3] Neurology Comment on above: Memory deficit [R41. 3] Start: 10-02-2023 Behavioral Health Screening Behavioral Health Screening [facility] Start: 06-02-2023 Covid-19 Vaccine () Covid-19 Vaccine () [facility] Start: 08-12-2022 [facility] Start: 08-10-2022 Consultation [facility] Start: 08-10-2022 End: 08-10-2022 [facility] Start: 2014 Shingrix Vaccine (1 of 2) Shingrix Vaccine (1 of 2) [facility] Start: 2009 Lipid panel Lipid Screening [facility] Start: 2009 Screening for malign ant neoplasm of colon [facility] Start: 2004 Screening for malign ant neoplasm of breast Mammogram Screening [facility] Start: 1994 Screening for malign ant neoplasm of cervix HPV Testing [facility] Start: 1985 Screening for malign ant neoplasm of cervix [facility] Start: 1983 Urine microalbumin profile DTaP,Tdap,Td Vaccine (1 - Tdap) [facility] Start: 1982 Anxiety Screening Anxiety Screening [facility] Start: 1982 Depression Screening Depression Scre ening [facility] Start: 1982 Hepatitis [facility] Start: 1982 HIV screening HIV Screening [facility] Acid Fast Bacilli Culture & Smear Acid Fast Bacilli Culture & Smear [facility] Anaerobic microbial culture Anaerobic Culture [facility] Bacteria identified in Urine by Culture Urine Culture [facility] Chlamydia trachomati s [Presence] in Unspecified specimen by Organism specific culture [facility] Work Phone: Chlamydia trachomati s [Presence] in Unspecified specimen by Organism specific culture [facility] EEG EEG NEUROLOGY 12:00 AM EDT [facility] End: 03-06-2025 EPIL EEG ROUTINE EPIL EEG ROUTINE NEUROLOGY Routine Memory deficit Auditory hallucinations 1 Occurrences starting 03/06/2024 until 03/06/2025 [facility] Work Phone: Comment on above: 1 Occurrences starti ng 03/06/2024 until 03/06/2025 Fungal Culture Result 1 Fungal Culture Re sult 1 [facility] Fungus identified in Unspecified specimen by Culture [facility] Work Phone: Mycobacterium sp identified in Unspecified specimen by Organism specific culture [facility] Work Phone: Mycology Culture Mycology Culture [facility] Patient referral [facility] Work Phone: [facility] Payers Date Payer Category Payer Self-pay 2022 Medicaid [place] [employer] [facility] MEDICAID [id number] 2022-Present [phone] [address] [place] [address] Medicaid [id number] 1964 Unknown [id number] [id number] 1964 Unknown [id number] 2.16.840.1.879525.3.579.2.593 1964 Unknown [id number] 2.16.840.1.989283.3.579.2.593 1964 Unknown [id number] 2.16.840.1.869402.3.579.2.593 1964 Unknown [id number] 2.16.840.1.240428.3.579.2.593 1964 Unknown [id number] 2.16.840.1.192263.3.579.2.593 1964 Unknown [id number] 2.16.840.1.669401.3.579.2.593 1964 Unknown [id number] 2.16.840.1.318520.3.579.2.593 1964 Unknown [id number] 2.16.840.1.937589.3.579.2.593 1964 Unknown [id number] 2.16.840.1.574779.3.579.2.593 1964 Unknown [id number] 2.16.840.1.944822.3.579.2.593 1964 Unknown [id number] 2.16.840.1.777065.3.579.2.593 1964 Unknown [id number] 2.16.840.1.730648.3.579.2.593 1964 Unknown [id number] 2.16.840.1.944716.3.579.2.593 1964 Unknown [id number] 2.16.840.1.826764.3.579.2.593 1964 Unknown [id number] 2.16.840.1.896757.3.579.2.1259 1964 Unknown [id number] 2.16.840.1.296421.3.579.2.1259 1959 Self-pay [id number] 1959 Unknown [id number] Unknown [id number] 2.16.840.1.693006.3.579.2.531 Social History Date Type Detail Facility Tobacco smoking stat [facility] Unknown if ever smoked [facility] Work Phone: Start: 1965 Sex Assigned At Female F [facility] Start: 08-10-2022 Tobacco smoking stat [facility] Never smoked tobacco (finding) [facility] Start: 03-06-2024 Tobacco smoking stat [facility] Tobacco smoking consumption unknown [facility] Start: 03-06-2024 History of Social function [facility] Start: 03-06-2024 Area Deprivation Index [facility] National Score (1-10 0), lower number is lower risk 76 [facility] Start: 1965 Sex Assigned At Not on file C [facility] Medical Equipment Procedure Code Equipment Code Equipment Origin al Text Equipment Identifier Dates Thoracotomy Surgical adhesive/sealant, human-derived [id number] [facility] Start: 08-10-2022 Goals Date Patient Goal Desired Activity /State Functional Status Date Assessment Result Facility 08-12-2022 Functional status Patient at Baseline [facility] Work Phone: Mental Status Date Assessment Result Facility 08-12-2022 Cognitive function Cognitive Sta tus Patient at Baseline [facility] Work Phone: Clinical Notes 08-10-2022 to 06-13-2024 Zoila Monae MD - 06/13/2024 12:30 PM EDTTelephone Encounter - Zoila Monae MD - 06/04/2024 1:21 PM EDTTelephone Encounter - Zoila Monae MD - 06/04/2024 1:21 PM EDT Note Date & Type Note Facility 06-13-2024 History of Present illness Narrative [facility] General Neurology Follow up/ Established patient visit Individuals who were included in, or assisted with the encounter were: Emigdio Eli Zoila Monae MD Chief Complaint/Issues: Emigdio Eli is a 58 year old female seen in the [facility] for General Neurology for: Staring spells. Most [...] that she can have it done in [place] but she would rather come here. She [...] which included preparing to see the patient, [id number] patient care, completing clinical documentation, obtaining and/or reviewing separately obtained history, performing a medically appropriate examination, counseling and educating the patient/family/caregiver, ordering medications, tests, or procedures, communicating with other HCPs (not separately reported), and communicating results to the patient/family/caregiver. Zoila Monae MD documented in this encounter [facility] 06-13-2024 Note HNO ID: [id number] Author: ZOILA MONAE MD Service: ? Author Type: Physician Type: Progress Notes Filed: 06/13/2024 13:41 Note Text: [facility] for General Neurology Follow up/ Established patient visit Individuals who were included in, or assisted with the encounter were: Emigdio Eli Zoila Monae MD Chief Complaint/Issues: Emigdio Eli is a 58 year old female seen in the [facility] for General Neurology for: Staring spells. Most Recent Neurological Assessment and Plan: Last Filed Values Date of Most Recent Assessment and Plan 03/06/24 Specialty General Neurology Assessment 1) Episodes of altered mental status: no significant risk other than multiple head injuries and brain seems to be smaller with lot more CSF around the brain, no hydrocephalus. 2) MOCA was 1730 but given she has a hx of [...] that she can have it done in [place] but she would rather come here. She [...] 100 mg b (more content not included)... [facility] 06-11-2024 Note HNO ID: [id number] Author: NARCISA YUSUF MD Service: Neurology General Author Type: Physician Type: Procedures Filed: 06/13/2024 13:25 Note Text: [facility] - Electroencephalogram EMIGDIO ELI : 1965 AGE: 58 SEX: F CSN: [id number] [facility] SVC: LOCATION: ATTENDING PHYSICIAN: DATE OF PROCEDURE: [...] have been noted. Narcisa Yusuf M.D. Neurology [id number] /[id number] [facility] 06-04-2024 Telephone encounter Note A new neuropsych order has been put in. Thanks Zoila Monae MD [facility] Work Phone: 06-04-2024 Miscellaneous Notes A new neuropsych order has been put in. Thanks Zoila Monae MD documented in this encounter [facility] 06-04-2024 Note HNO ID: [id number] Author: ZOILA MONAE MD Service: ? Author Type: Physician Type: Progress Notes Filed: 06/04/2024 13:22 Note Text: Neuropsychology order had when they tried to get her in. A new order has been put in and good for a year. Zoila Monae MD [facility] 06-04-2024 History of Present illness Narrative Neuropsychology order had when they tried to get her in. A new order has been put in and good for a year. Zoila Monae MD documented in this encounter [facility] 03-06-2024 History of Present illness Narrative Images from the original note were not included. [facility] for General Neurology New Patient Evaluation Consulting Provider: Tony Amaya [address] [address] The patient presents with a chief complaint [...] year old Rh female seen in the [facility] for General Neurology for: Cognitive evaluation and [...] Version 1 Total Score: 17/30 Visuospatial/Executive Alternating [place] Making: Patient successfully draws the pattern without [...] fabric' (0) Word 3: Required multiple choice- 'taoist, school, hospital' (0) Word 4: Required category cue- 'type of flower' (0) Word 5: Required category cue- 'a color' (0) Delayed Recall Score: 0/5 Orientation The patient was able to answer correctly: exact date, month, year, exact place (name of hospital, clinic, office). Orientation Score: 01/05 Education less than or equal to 12th [...] ECG COPD (chronic obstructive pulmonary disease) ([facility]) Hyperlipidemia Past Surgical History: Procedure Laterality Date [...] signed: Karthikeyan Linn. Outside Data/Labs: 01/2024 at [facility]: Tox screen negative, Etoh negative, CBC is normal, CMP is normal, Folate 34, B12 148, TSH 0.01 IMPRESSION: Unremarkable intracranial CT angiogram. Unremarkable unenhanced CT of the brain. Unremarkable extracranial CT angiogram Subjective Patient-Entered Data: 03/04/24 - GENERAL NEUROLOGY SCORES I spent a total of 55 minutes on the date of the service which included preparing to see the patient, [id number]-xb-[id number] patient care, completing clinical documentation, obtaining and/or reviewing separately obtained history, performing a medically appropriate examination, counseling and educating the patient/family/caregiver, ordering medications, tests, or procedures, communicating with other HCPs (not separately reported), and communicating results to the patient/family/caregiver. Zoila Monae MD documented in this encounter [facility] 03-06-2024 Note HNO ID: [id number] Author: ZOILA MONAE MD Service: ? Author Type: Physician Type: Progress Notes Filed: 03/06/2024 15:39 Note Text: [facility] for General Neurology New Patient Evaluation Consulting Provider: Tony Amaya [address] [address] The patient presents with a chief complaint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
== END 2024-07-05 09:48 | disposition home or self-care (01) ==
LOC: CT 09:47
PROVIDERS: PCP Family Medicine; Visit Provider Family Medicine
DX: S82.091A Other fracture of right patella, initial encounter for closed fracture (principal)
CPT/HCPCS: 73700

== ENCOUNTER 2024-07-18 22:20 | Emergency (ER) | payer OTHER, SELFPAY ==
[2024-07-18 22:23] VITALS: BP 142/70; PULSE 91; TEMP 37; O2SAT 94; BMI 20.3
--- OUTSIDE RECORDS SUMMARY | 2024-07-18 22:27 | XMS_ITS | CCD ---
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 [address] [place] [address] Potassium [Moles/Vol] 3.5 mmol/L Normal 3.5-5.1 [facility] Comment on above: Performed By: #### L [id number] #### [facility] ([facility]) [address] [place] [address] Sodium [Moles/Vol] 140 mmol/L Normal 136-145 [facility] Comment on above: Performed By: #### L [id number] #### [facility] ([facility]) [address] [place] [address] Urea nitrogen [Mass/Vol] 6 mg/dL Low 7-25 [facility] Comment on above: Performed By: #### L [id number] #### [facility] ([facility]) [address] [place] [address] UREA NITROGEN/CREATININE (MASS RATIO) IN SER/PLAS 8.5 Normal [facility] Comment on above: Performed By: #### L [id number] #### [facility] ([facility]) [address] [place] [address] CBC WITH AUTO DIFFERENTIALon 01-03-2024 Basophils (Bld) [#/Vol] 0.01 10*3/uL Normal 0.00-0.20 [facility] Comment on above: Performed By: #### L [id number] #### [facility] ([facility]) [address] [place] [address] Basophils/100 WBC (Bld) 0.4 % Normal 0.0-1.0 [facility] Comment on above: Performed By: #### L [id number] #### [facility] ([facility]) [address] [place] [address] Eosinophils (Bld) [#/Vol] 0.11 10*3/uL Normal 0.00-0.50 [facility] Comment on above: Performed By: #### L [id number] #### [facility] ([facility]) [address] [place] [address] Eosinophils/100 WBC (Bld) 4.4 % Normal 0.0-6.0 [facility] Comment on above: Performed By: #### L [id number] #### [facility] ([facility]) [address] [place] [address] Erythrocyte distribution width (RBC) [Ratio] 13.6 % Normal 11.5-15.0 [facility] Comment on above: Performed By: #### L [id number] #### [facility] ([facility]) [address] [place] [address] ERYTHROCYTE MEAN CORPUSCULAR HEMOGLOBIN CONCENTRATION (G/DL) BY AUTOMATED 31.6 g/dL Low 32.0-35.0 [facility] Comment on above: Performed By: #### L [id number] #### [facility] ([facility]) [address] [place] [address] Hematocrit (Bld) [Volume fraction] 41.4 % Normal 36.0-48.0 [facility] Comment on above: Performed By: #### L [id number] #### [facility] ([facility]) [address] [place] [address] Hemoglobin (Bld) [Mass/Vol] 13.1 g/dL Normal 12.0-15.0 [facility] Comment on above: Performed By: #### L [id number] #### [facility] ([facility]) [address] [place] [place] [address] Immature granulocytes (Bld) [#/Vol] 0.00 10*3/uL Normal 0.00-0.20 [facility] Comment on above: Performed By: #### L [id number] #### [facility] ([facility]) [address] [place] [address] Immature granulocytes/100 WBC (Bld) 0.0 % Normal 0.0-1.0 [facility] Comment on above: Performed By: #### L [id number] #### [facility] ([facility]) [address] [place] [address] Lymphocytes (Bld) [#/Vol] 1.12 10*3/uL Low 1.20-4.00 [facility] Comment on above: Performed By: #### L [id number] #### [facility] ([facility]) [address] [place] [address] Lymphocytes/100 WBC (Bld) 44.8 % Normal 20.0-45.0 [facility] Comment on above: Performed By: #### L [id number] #### [facility] ([facility]) [address] [place] [address] MCH (RBC) [Entitic mass] 28.5 pg Normal 27.0-33.0 [facility] Comment on above: Performed By: #### L [id number] #### [facility] ([facility]) [address] [place] [address] MCV (RBC) [Entitic vol] 90.2 fL Normal 82.0-98.0 [facility] Comment on above: Performed By: #### L [id number] #### [facility] ([facility]) [address] [place] [address] Monocytes (Bld) [#/Vol] 0.24 10*3/uL Normal 0.10-1.00 [facility] Comment on above: Performed By: #### L [id number] #### [facility] ([facility]) [address] [place] [address] Monocytes/100 WBC (Bld) 9.6 % Normal 5.0-12.0 [facility] Comment on above: Performed By: #### L [id number] #### [facility] ([facility]) [address] [place] [address] Neutrophils (Bld) [#/Vol] 1.02 10*3/uL Low 1.60-7.60 [facility] Comment on above: Performed By: #### L [id number] #### [facility] ([facility]) [address] [place] [address] Neutrophils/100 WBC (Bld) 40.8 % Normal 40.0-72.0 [facility] Comment on above: Performed By: #### L [id number] #### [facility] ([facility]) [address] [place] [address] NRBC (PER 100 WBCS) BY AUTOMATED COUNT 0.0 % Normal 0 [facility] Comment on above: Performed By: #### L [id number] #### [facility] ([facility]) [address] [place] [address] PLATELETS (10*3/UL) IN BLOOD AUTOMATED COUNT 203 10*3/uL Normal 150-400 [facility] Comment on above: Performed By: #### L [id number] #### [facility] ([facility]) [address] [place] [address] RBC (Bld) [#/Vol] 4.59 10*6/uL Normal 3.80-5.00 [facility] Comment on above: Performed By: #### L [id number] #### [facility] ([facility]) [address] [place] [address] WBC (Bld) [#/Vol] 2.50 10*3/uL Low 4.00-10.60 [facility] Comment on above: Performed By: #### L [id number] #### [facility] ([facility]) [address] [place] [address] FOLATEon 01-03-2024 FOLATE (NG/ML) IN SER/PLAS 34.0 ng/mL Normal 6.6-1000 [facility] Comment on above: Performed By: #### L [id number] #### [facility] ([facility]) [address] [place] [address] MAGNESIUMon 01-03-2024 Magnesium [Mass/Vol] 1.9 mg/dL Normal 1.9-2.7 [facility] Comment on above: Performed By: #### L [id number] #### [facility] ([facility]) [address] [place] [address] VITAMIN B12on 01-03-2024 Cobalamin (Vitamin B12) [Mass/Vol] 148 pg/mL Low 180-914 [facility] Comment on above: Result Comment: REFE RENDOMI RANGES: 180-914 pg/mL Normal 145-179 pg/mL Indeterminate <145 pg/mL Deficient Performed By: #### L [id number] #### [facility] ([facility]) [address] [place] [address] 30on 01-02-2024 30 The patient is Moder ately Stable - Low risk of patient condition declining or worsening The patient's goals for the shift include comfort The clinical goals for the shift include comfort, stability and safety Normal [facility] BASIC METABOLIC PANELon Anion gap [Moles/Vol] 8 mmol/L Normal 7-20 [facility] Comment on above: Performed By: #### L [id number] #### [facility] ([facility]) [address] [place] [address] Calcium [Mass/Vol] 8.6 mg/dL Normal 8.6-10.3 [facility] Comment on above: Performed By: #### L [id number] #### [facility] ([facility]) [address] [place] [address] Chloride [Moles/Vol] 109 mmol/L High 98-107 [facility] Comment on above: Performed By: #### L [id number] #### [facility] ([facility]) [address] [place] [address] CO2 [Moles/Vol] 28 mmol/L Normal 21-[address] [facility] Comment on above: Performed By: #### L [id number] #### [facility] ([facility]) [address] [place] [address] Creatinine [Mass/Vol] 0.82 mg/dL Normal 0.60-1.20 [facility] Comment on above: Performed By: #### L [id number] #### [facility] ([facility]) [address] [address] GLOMERULAR FILTRATION RATE ML/MIN/1.73 SQ M.PREDICTED 82.3 mL/min/1.73m*2 Normal >60.0 [facility] Comment on above: Result Comment: [facility]???s estimated glomerular filtration rate (eGFR) will [...] group of individuals. Performed By: #### L [id number] #### [facility] ([facility]) [address] [address] Glucose [Mass/Vol] 96 mg/dL Normal 70-100 [facility] Comment on above: Performed By: #### L [id number] #### [facility] ([facility]) [address] [place] [address] Potassium [Moles/Vol] 3.6 mmol/L Normal 3.5-5.1 [facility] Comment on above: Performed By: #### L [id number] #### [facility] ([facility]) [address] [place] [address] Sodium [Moles/Vol] 141 mmol/L Normal 136-145 [facility] Comment on above: Performed By: #### L [id number] #### [facility] ([facility]) [address] [place] [address] Urea nitrogen [Mass/Vol] 7 mg/dL Normal 7-25 [facility] Comment on above: Performed By: #### L [id number] #### [facility] ([facility]) [address] [place] [address] UREA NITROGEN/CREATININE (MASS RATIO) IN SER/PLAS 8.5 Normal [facility] Comment on above: Performed By: #### L [id number] #### [facility] ([facility]) [address] [place] [address] CBCon 01-02-2024 Erythrocyte distribution width (RBC) [Ratio] 13.8 % Normal 11.5-15.0 [facility] Comment on above: Performed By: #### L [id number] #### [facility] ([facility]) [address] [place] [address] ERYTHROCYTE MEAN CORPUSCULAR HEMOGLOBIN CONCENTRATION (G/DL) BY AUTOMATED 31.6 g/dL Low 32.0-35.0 [facility] Comment on above: Performed By: #### L [id number] #### [facility] ([facility]) [address] [place] [address] Hematocrit (Bld) [Volume fraction] 44.0 % Normal 36.0-48.0 [facility] Comment on above: Performed By: #### L [id number] #### [facility] ([facility]) [address] [place] [address] Hemoglobin (Bld) [Mass/Vol] 13.9 g/dL Normal 12.0-15.0 [facility] Comment on above: Performed By: #### L [id number] #### [facility] ([facility]) [address] [place] [address] MCH (RBC) [Entitic mass] 29.0 pg Normal 27.0-33.0 [facility] Comment on above: Performed By: #### L [id number] #### [facility] ([facility]) [address] [place] [address] MCV (RBC) [Entitic vol] 91.9 fL Normal 82.0-98.0 [facility] Comment on above: Performed By: #### L [id number] #### [facility] ([facility]) [address] [place] [address] PLATELETS (10*3/UL) IN BLOOD AUTOMATED COUNT 201 10*3/uL Normal 150-400 [facility] Comment on above: Performed By: #### L [id number] #### [facility] ([facility]) [address] [place] [address] RBC (Bld) [#/Vol] 4.79 10*6/uL Normal 3.80-5.00 [facility] Comment on above: Performed By: #### L [id number] #### [facility] ([facility]) [address] [place], [place] [address] WBC (Bld) [#/Vol] 3.38 10*3/uL Low 4.00-10.60 [facility] Comment on above: Performed By: #### L [id number] #### [facility] ([facility]) [address] [place] [address] CONSULTon 01-02-2024 CONSULT Reason For Consult consatnt dizziness Referring Provider: Pam Way MD History Of Present Illness Emigdio Eli is a 58 y.o. female who presented to [facility] emergency department with complaints dizziness for [...] by Dr. Tony Amaya on 12/29/2023 in [place] due to this persistent dizziness. She was [...] Abnormal ECG, COPD (chronic obstructive pulmonary disease) ([facility]), and Hyperlipidemia. Surgical History She has a [...] -- 76 -- 99 % -- -- 01/01/241 -- -- -- 85 -- 97 % [...] Crani (more content not included)... Normal [facility] EDPROVon 01-02-2024 EDPROV HPI Chief Complaint [...] Glucose, Urine Negative Bilirubin, Urine Negative Specific Thompson, Urine 1.041 (*) Ketones, Urine Trace (*) [...] Procedure Abnormality Status --------- ------ CBC auto differential[[id number]] Abnormal Final result Please view results for [...] Course & MDM ED Course as of 01/02/242308 Mon Jan 01, 2024 2134 Per cardiology note 10/24/23: Stress test 09/2023 was negative for ischemia TTE 09/06/23 normal LVEF 60%, mildly elevated RVSP, mild TR [JS] 2300 Pt was signed out to ED attending (Dr Bautista) at shift change. All labs (except CBC) and imaging (except CXR) pending. Pt will likely need admi (more content not included)... Normal [facility] T4, FREEon 01-02-2024 THYROXINE (T4) FREE (NG/DL) IN SER/PLAS 1.66 ng/dL Normal 0.71-1.85 [facility] Comment on above: Performed By: #### L [id number] ####[facility] ([facility])[address] [place] [address] TSH3 REFLEX TO FT4on 024 THYROTROPIN (MIU/L) IN SER/PLAS BY DETECTION LIMIT <= 0.05 MIU/L 0.01 mIU/L Low 0.34-5.60 [facility] Comment on above: Performed By: #### L [id number] #### [facility] ([facility]) [address] [place] [address] CBC WITH AUTO DIFFERENTIALon 01-01-2024 Basophils (Bld) [#/Vol] 0.02 10*3/uL Normal 0.00-0.20 [facility] Comment on above: Performed By: #### L [id number] #### [facility] ([facility]) [address] [place] [address] Basophils/100 WBC (Bld) 0.6 % Normal 0.0-1.0 [facility] Comment on above: Performed By: #### L [id number] #### [facility] ([facility]) [address] [place] [address] Eosinophils (Bld) [#/Vol] 0.09 10*3/uL Normal 0.00-0.50 [facility] Comment on above: Performed By: #### L [id number] #### [facility] ([facility]) [address] [place] [address] Eosinophils/100 WBC (Bld) 2.6 % Normal 0.0-6.0 [facility] Comment on above: Performed By: #### L [id number] #### [facility] ([facility]) [address] [place] [place] [address] Erythrocyte distribution width (RBC) [Ratio] 13.6 % Normal 11.5-15.0 [facility] Comment on above: Performed By: #### L [id number] #### [facility] ([facility]) [address] [place] [address] ERYTHROCYTE MEAN CORPUSCULAR HEMOGLOBIN CONCENTRATION (G/DL) BY AUTOMATED 33.9 g/dL Normal 32.0-35.0 [facility] Comment on above: Performed By: #### L [id number] #### [facility] ([facility]) [address] [place] [address] Hematocrit (Bld) [Volume fraction] 42.2 % Normal 36.0-48.0 [facility] Comment on above: Performed By: #### L [id number] #### [facility] ([facility]) [address] [place] [address] Hemoglobin (Bld) [Mass/Vol] 14.3 g/dL Normal 12.0-15.0 [facility] Comment on above: Performed By: #### L [id number] #### [facility] ([facility]) [address] [place] [address] Immature granulocytes (Bld) [#/Vol] 0.02 10*3/uL Normal 0.00-0.20 [facility] Comment on above: Performed By: #### L [id number] #### [facility] ([facility]) [address] [place] [address] Immature granulocytes/100 WBC (Bld) 0.6 % Normal 0.0-1.0 [facility] Comment on above: Performed By: #### L [id number] #### [facility] ([facility]) [address] [place] [address] Lymphocytes (Bld) [#/Vol] 1.11 10*3/uL Low 1.20-4.00 [facility] Comment on above: Performed By: #### L [id number] #### [facility] ([facility]) [address] [place] [address] Lymphocytes/100 WBC (Bld) 32.1 % Normal 20.0-45.0 [facility] Comment on above: Performed By: #### L [id number] #### [facility] ([facility]) [address] [place] [address] MCH (RBC) [Entitic mass] 29.0 pg Normal 27.0-33.0 [facility] Comment on above: Performed By: #### L [id number] #### [facility] ([facility]) [address] [place] [address] MCV (RBC) [Entitic vol] 85.6 fL Normal 82.0-98.0 [facility] Comment on above: Performed By: #### L [id number] #### [facility] ([facility]) [address] [place] [address] Monocytes (Bld) [#/Vol] 0.28 10*3/uL Normal 0.10-1.00 [facility] Comment on above: Performed By: #### L [id number] #### [facility] ([facility]) [address] [place] [address] Monocytes/100 WBC (Bld) 8.1 % Normal 5.0-12.0 [facility] Comment on above: Performed By: #### L [id number] #### [facility] ([facility]) [address] [place] [address] Neutrophils (Bld) [#/Vol] 1.94 10*3/uL Normal 1.60-7.60 [facility] Comment on above: Performed By: #### L [id number] #### [facility] ([facility]) [address] [place] [address] Neutrophils/100 WBC (Bld) 56.0 % Normal 40.0-72.0 [facility] Comment on above: Performed By: #### L [id number] #### [facility] ([facility]) [address] [place] [address] NRBC (PER 100 WBCS) BY AUTOMATED COUNT 0.0 % Normal 0 [facility] Comment on above: Performed By: #### L [id number] #### [facility] ([facility]) [address] [place] [address] PLATELETS (10*3/UL) IN BLOOD AUTOMATED COUNT 222 10*3/uL Normal 150-400 [facility] Comment on above: Performed By: #### L [id number] #### [facility] ([facility]) [address] [place] [address] RBC (Bld) [#/Vol] 4.93 10*6/uL Normal 3.80-5.00 [facility] Comment on above: Performed By: #### L [id number] #### [facility] ([facility]) [address] [place] [address] WBC (Bld) [#/Vol] 3.46 10*3/uL Low 4.00-10.60 [facility] Comment on above: Performed By: #### L [id number] #### [facility] ([facility]) [address] [place] [address] COMPREHENSIVE METABOLIC PANE Balwinder 01-01-2024 Albumin [Mass/Vol] 4.1 g/dL Normal 3.5-5.7 [facility] Comment on above: Performed By: #### L [id number] #### [facility] ([facility]) [address] [place] [address] ALP [Catalytic activity/Vol] 81 U/L Normal 34-104 [facility] Comment on above: Performed By: #### L [id number] #### [facility] ([facility]) [address] [place] [address] ALT [Catalytic activity/Vol] 10 U/L Normal 7-52 [facility] Comment on above: Performed By: #### L [id number] #### [facility] ([facility]) [address] [place] [address] Anion gap [Moles/Vol] 14 mmol/L Normal 7-20 [facility] Comment on above: Performed By: #### L [id number] #### [facility] ([facility]) [address] [place] [address] AST [Catalytic activity/Vol] 20 U/L Normal 13-39 [facility] Comment on above: Performed By: #### L [id number] #### [facility] ([facility]) [address] [place] [address] Bilirubin [Mass/Vol] 0.5 mg/dL Normal 0.3-1.0 [facility] Comment on above: Performed By: #### L [id number] #### [facility] ([facility]) [address] [place] [address] Calcium [Mass/Vol] 9.6 mg/dL Normal 8.6-10.3 [facility] Comment on above: Performed By: #### L [id number] #### [facility] ([facility]) [address] [place] [address] Chloride [Moles/Vol] 106 mmol/L Normal 98-107 [facility] Comment on above: Performed By: #### L [id number] #### [facility] ([facility]) [address] [place] [address] CO2 [Moles/Vol] 24 mmol/L Normal 21-[address] [facility] Comment on above: Performed By: #### L [id number] #### [facility] ([facility]) [address] [place] [address] Creatinine [Mass/Vol] 0.82 mg/dL Normal 0.60-1.20 [facility] Comment on above: Performed By: #### L [id number] #### [facility] ([facility]) [address] [place] [address] GLOMERULAR FILTRATION RATE ML/MIN/1.73 SQ M.PREDICTED 82.3 mL/min/1.73m*2 Normal >60.0 [facility] Comment on above: Result Comment: [facility]???s estimated glomerular filtration rate (eGFR) will [...] group of individuals. Performed By: #### L [id number] #### [facility] ([facility]) [address] [place] [address] Glucose [Mass/Vol] 86 mg/dL Normal 70-100 [facility] Comment on above: Performed By: #### L [id number] #### [facility] ([facility]) [address] [place] [address] Potassium [Moles/Vol] 3.8 mmol/L Normal 3.5-5.1 [facility] Comment on above: Performed By: #### L [id number] #### [facility] ([facility]) [address] [place] [address] Protein [Mass/Vol] 6.7 g/dL Normal 6.0-8.3 [facility] Comment on above: Performed By: #### L [id number] #### [facility] ([facility]) [address] [place] [address] Sodium [Moles/Vol] 140 mmol/L Normal 136-145 [facility] Comment on above: Performed By: #### L [id number] #### [facility] ([facility]) [address] [place] [address] Urea nitrogen [Mass/Vol] 10 mg/dL Normal 7-25 [facility] Comment on above: Performed By: #### L [id number] #### [facility] ([facility]) [address] [place] [address] UREA NITROGEN/CREATININE (MASS RATIO) IN SER/PLAS 12.2 Normal [facility] Comment on above: Performed By: #### L [id number] #### [facility] ([facility]) [address] [place] [address] CT ABDOMEN PELVIS W IV CONTR Marquita [...] liver function test evaluation. Electronically signed: Shari Knight Invalid Interpretation Code [facility] CT HEAD WO IV CONTRASTon CT [...] Shari Turner Vldtd Invalid Interpretation Code [facility] CTA HEAD W IV CONTRASTon CTA [...] Shari Turner Vldtd Invalid Interpretation Code [facility] CTA NECK W IV CONTRASTon CTA [...] carotid arteries. Electronically signed: Shari Mahoney. Yue Knight Invalid Interpretation Code [facility] EDNURSon 01-01-2024 EDNURS Pt arrives with avani maldonado to triage, states that pt has been seen at [facility] multiple times for increased dizziness, vomiting, and diarrhea for the past 2 weeks. Pt states that she is suppose to get an MRI of her brain done at [facility] but has not scheduled it yet. Reports multiple falls d/t dizziness. Normal [facility] EDPROVon 01-01-2024 EDPROV [facility] [address] [facility] [id number] EMERGENCY DEPARTMENT ENCOUNTER 01/01/2024 CHIEF COMPLAINT Chief [...] Abnormal ECG, COPD (chronic obstructive pulmonary disease) ([facility]), and Hyperlipidemia. SURGICAL HISTORY has [...] functio (more content not included)... Normal [facility] ETHANOLon 01-01-2024 ETHANOL (MG/DL) IN SER/PLAS <10 Normal [facility] Comment on above: Performed By: #### L [id number] ####[facility] ([facility])[address] [place] [address] ETHANOL CALCULATED (%) Normal [facility] Comment on above: Performed By: #### L [id number] ####[facility] ([facility])[address] [place] [address] LACTIC ACID WITH 4 HOUR REFL EXon 01-01-2024 LACTATE (MMOL/L) IN SER/PLAS 0.8 mmol/L Normal 0.5-2.2 [facility] Comment on above: Performed By: #### L [id number] #### [facility] ([facility]) [address] [place] [address] LIPASEon 01-01-2024 LIPASE (U/L) IN SER/PLAS 47 U/L Normal 11-82 [facility] Comment on above: Performed By: #### L [id number] #### [facility] ([facility]) [address] [place] [address] MAGNESIUMon 01-01-2024 Magnesium [Mass/Vol] 2.1 mg/dL Normal 1.9-2.7 [facility] Comment on above: Performed By: #### L [id number] #### [facility] ([facility]) [address] [place] [address] T4, FREEon 01-01-2024 THYROXINE (T4) FREE (NG/DL) IN SER/PLAS 1.44 ng/dL Normal 0.71-1.85 [facility] Comment on above: Performed By: #### L [id number] ####[facility] ([facility])[address] [place] [address] TOXICOLOGY PANEL URINEon AMPHETAMINE+METHAMPHET AMINE SCREEN (PRESENCE) IN URINE Negative Normal Negative [facility] Comment on above: Performed By: #### L [id number] #### [facility] ([facility]) [address] [place] [address] BARBITURATES PRESENCE IN URINE BY SCREEN METHOD Negative Normal Negative [facility] Comment on above: Performed By: #### L [id number] #### [facility] ([facility]) [address] [place] [address] Benzodiazepines Ql (U) Negative Normal Negative [facility] Comment on above: Performed By: #### L [id number] #### [facility] ([facility]) [address] [place] [address] CANNABINOID (PRESENCE) IN URINE BY SCREEN METHOD Negative Normal Negative [facility] Comment on above: Performed By: #### L [id number] #### [facility] ([facility]) [address] [place] [address] Cocaine Ql (U) Negative Normal Negative [facility] Comment on above: Performed By: #### L [id number] #### [facility] ([facility]) [address] [place] [address] METHADONE (PRESENCE) IN URINE BY SCREEN METHOD Negative Normal Negative [facility] Comment on above: Performed By: #### L [id number] #### [facility] ([facility]) [address] [place] [address] OPIATES (PRESENCE) IN URINE BY SCREEN METHOD Negative Normal Negative [facility] Comment on above: Performed By: #### L [id number] #### [facility] ([facility]) [address] [place] [address] PHENCYCLIDINE PRESENCE IN URINE BY SCREEN METHOD Negative Normal Negative [facility] Comment on above: Performed By: #### L [id number] #### [facility] ([facility]) [address] [place] [address] Propoxyphene Screen Ql (U) Negative Normal Negative [facility] Comment on above: Performed By: #### L [id number] #### [facility] ([facility]) [address] [place] [address] TRICYCLIC ANTIDEPRESSANTS (PRESENCE) IN URINE Negative Normal Negative [facility] Comment on above: Performed By: #### L [id number] #### [facility] ([facility]) [address] [place] [address] TROPONIN Ion 01-01-2024 Troponin I.cardiac [Mass/Vol] 0.00 ng/mL Normal 0.00-0.04 [facility] Comment on above: Performed By: #### L [id number] ####[facility] ([facility])[address] [place] [address] TSH3 REFLEX TO FT4on 024 THYROTROPIN (MIU/L) IN SER/PLAS BY DETECTION LIMIT <= 0.05 MIU/L 0.02 mIU/L Low 0.34-5.60 [facility] Comment on above: Performed By: #### L [id number] #### [facility] ([facility]) [address] [place] [address] URINALYSIS WITH REFLEX CULTU REon 01-01-2024 BILIRUBIN, TOTAL PRESENCE IN URINE Negative Normal Negative [facility] Comment on above: Order Comment: Micro scopics not performed on urines with negative chemical reactions unless requested on original order. Performed By: #### L [id number] #### [facility] ([facility]) [address] [place] [address] Clarity (U) Clear Normal Clear [facility] Comment on above: Order Comment: Micro scopics not performed on urines with negative chemical reactions unless requested on original order. Performed By: #### L [id number] #### [facility] ([facility]) [address] [place] [address] Color (U) Straw Abnormal Yellow [facility] Comment on above: Order Comment: Micro scopics not performed on urines with negative chemical reactions unless requested on original order. Performed By: #### L [id number] #### [facility] ([facility]) [address] [place] [address] Glucose (U) [Mass/Vol] Negative Normal Negative [facility] Comment on above: Order Comment: Micro scopics not performed on urines with negative chemical reactions unless requested on original order. Performed By: #### L [id number] #### [facility] ([facility]) [address] [place] [address] HEMOGLOBIN PRESENCE IN URINE Negative Normal Negative [facility] Comment on above: Order Comment: Micro scopics not performed on urines with negative chemical reactions unless requested on original order. Performed By: #### L [id number] #### [facility] ([facility]) [address] [place] [address] Ketones Ql (U) Trace Abnormal Negative [facility] Comment on above: Order Comment: Micro scopics not performed on urines with negative chemical reactions unless requested on original order. Performed By: #### L [id number] #### [facility] ([facility]) [address] [place] [address] LEUKOCYTE ESTERASE PRESENCE IN URINE BY TEST STRIP Negative Normal Negative [facility] Comment on above: Order Comment: Micro scopics not performed on urines with negative chemical reactions unless requested on original order. Performed By: #### L [id number] #### [facility] ([facility]) [address] [place] [address] NITRITE PRESENCE IN URINE Negative Normal Negative [facility] Comment on above: Order Comment: Micro scopics not performed on urines with negative chemical reactions unless requested on original order. Performed By: #### L [id number] #### [facility] ([facility]) [address] [place] [address] pH (U) 6.0 [pH] Normal 5.0-8.0 [facility] Comment on above: Order Comment: Micro scopics not performed on urines with negative chemical reactions unless requested on original order. Performed By: #### L [id number] #### [facility] ([facility]) [address] [place] [address] Protein (U) [Mass/Vol] Negative Normal Negative [facility] Comment on above: Order Comment: Micro scopics not performed on urines with negative chemical reactions unless requested on original order. Performed By: #### L [id number] #### [facility] ([facility]) [address] [place] [address] Specific gravity (U) [Rel density] 1.041 High 1.015-1.02 0 [facility] Comment on above: Order Comment: Micro scopics not performed on urines with negative chemical reactions unless requested on original order. Performed By: #### L [id number] #### [facility] ([facility]) [address] [place] [address] Office Visiton 10-24-2023 Follow-up visit [id number] Dariel Eli S 1965 F Date Provider Department Center 10/24/2023 MARI ACHARYA [facility] Family History Problem Relation Age of Onset Alzheimer's disease Father Family Status - Relation Status Age at Mother Alive Father Level of Service:00566 GA OFFICE/OUTPATIENT ESTABLISHED MOD MDM 30 MIN Normal [facility] Orders Onlyon 09-01-2023 Orders Only [id number] Dariel Eli S 1965 F Date Provider Department Center 09/01/2023 Jony8MARVIN ROTH ALECIA [facility] Family History Problem Relation Age of Onset Alzheimer's disease Father Family Status - Relation Status Age at Mother Alive Father Normal [facility] CBC AUTO DIFFon 01-07-2023 BASO # 0.0 103/ul Normal 0.0-0.1 [facility] Comment on above: Performed By: #### C BC ####[facility] [address] [place] [address]Dr. Shahbaz Rogel Basophils/100 WBC (Bld) 0.3 % Normal 0.2-2.0 [facility] Comment on above: Performed By: #### C BC ####[facility] [address] [place] [address]Dr. Shahbaz Rogel EO # 0.0 103/ul Normal 0.0-0.7 [facility] Comment on above: Performed By: #### C BC ####[facility] [address] [place] [address]Dr. Shahbaz Rogel Eosinophils/100 WBC (Bld) 0.0 % Critically low 0.9-7.0 [facility] Comment on above: Performed By: #### C BC ####[facility] [address] [place], [place] [address]Dr. Shahbaz Rogel Erythrocyte distribution width (RBC) [Ratio] 13.5 % Normal 11.0-15.0 [facility] Comment on above: Performed By: #### C BC ####[facility] [address] [place] [address]Dr. Shahbaz Rogel Hematocrit (Bld) [Volume fraction] 36.4 % Normal 36.0-48.0 [facility] Comment on above: Performed By: #### C BC ####[facility] [address] [place] [address]Dr. Shahbaz Rogel Hemoglobin (Bld) [Mass/Vol] 11.6 g/dL Critically low 12.0-16.0 [facility] Comment on above: Performed By: #### C BC ####[facility] [address] [place], [place] [address]DrChen Shahbaz Rogel IG # 0.06 10e3/ul Critically high 0.00-0.03 [facility] Comment on above: Performed By: #### C BC ####[facility] [address] [place], [place] [address]DrChen Shahbaz Juan F IG % 1.5 % Critically high 0.0-0.5 [facility] Comment on above: Performed By: #### C BC ####[facility] [address] [place], [place] [address]DrChen Shahbaz Rogel LYMPH # 0.7 103/ul Critically low 1.2-3.8 [facility] Comment on above: Performed By: #### C BC ####[facility] [address] [place], [place] [address]DrChen Shahbaz Rogel Lymphocytes/100 WBC (Bld) 16.6 % Critically low 20.5-60.0 [facility] Comment on above: Performed By: #### C BC ####[facility] [address] [place], [place] [address]DrChen Shahbaz Rogel MANUAL DIFF REQ NO Normal [facility] Comment on above: Performed By: #### C BC ####[facility] [address] [place], [place] [address]DrChen Shahbaz Rogel MCH (RBC) [Entitic mass] 27.6 pg Normal 26.7-34.0 [facility] Comment on above: Performed By: #### C BC ####[facility] [address] [place] [id number]. Shahbaz Rogel MCHC (RBC) [Mass/Vol] 31.9 g/dL Normal 29.9-35.2 [facility] Comment on above: Performed By: #### C BC ####[facility] [address] [place] [address]Dr. Shahbaz Rogel MCV (RBC) [Entitic vol] 86.5 fL Normal 81.0-99.0 [facility] Comment on above: Performed By: #### C BC ####[facility] [address] [place], [place] [address]Dr. Shahbaz Rogel MONO # 0.2 103/ul Critically low 0.3-0.8 [facility] Comment on above: Performed By: #### C BC ####[facility] T[address]ks[address] [place], [place] [address]Dr. Shahbaz Rogel Monocytes/100 WBC (Bld) 5.0 % Normal 1.7-12.0 [facility] Comment on above: Performed By: #### C BC ####[facility] [address] [place], [place] [address]Dr. Shahbaz Rogel NEUT # 3.1 103/ul Normal 1.4-6.5 [facility] Comment on above: Performed By: #### C BC ####[facility] [address] [place], [place] [address]Dr. Shahbaz Rogel Neutrophils/100 WBC (Bld) 76.6 % Critically high 43.0-75.0 [facility] Comment on above: Performed By: #### C BC ####[facility] [address] [place], [place] [address]DrChen Rogel Platelet mean volume (Bld) [Entitic vol] 9.9 fL Normal 9.5-13.5 [facility] Comment on above: Performed By: #### C BC ####[facility] L[address] [place], [place] [address]Dr. Shahbaz Rogel PLT 194 103/ul Normal 150-450 [facility] Comment on above: Performed By: #### C BC ####[facility] [address] [place] [address]Dr. Shahbaz Rogel RBC 4.21 106/ul Normal 4.20-5.40 [facility] Comment on above: Performed By: #### C BC ####[facility] [address] [place] [address]Dr. Shahbaz Rogel WBC 4.0 103/ul Normal 4.0-11.0 [facility] Comment on above: Performed By: #### C BC ####[facility] [address] [place] [address]Dr. Shahbaz Rogel PROF CHEM 8 (BAS METB)on Anion gap [Moles/Vol] 9.5 mmol/L Normal [facility] Comment on above: Performed By: #### B MP ####[facility] Z[address] [place], [place] [address]Dr. Shahbaz Rogel Calcium [Mass/Vol] 8.8 mg/dL Normal 8.5-10.1 [facility] Comment on above: Performed By: #### B MP ####[facility] [address] [place], [place] [address]Dr. Shahbaz Rogel Chloride [Moles/Vol] 106 mmol/L Normal 98-107 [facility] Comment on above: Performed By: #### B MP ####[facility] [address] [place], [place] [address]Dr. Shahbaz Rogel CO2 [Moles/Vol] 29.6 mmol/L Normal 21.0-32.0 [facility] Comment on above: Performed By: #### B MP ####[facility] [address]msz[address] [place], [place] [address]Dr. Shahbaz Rogel Creatinine [Mass/Vol] 0.80 mg/dL Normal 0.55-1.02 [facility] Comment on above: Performed By: #### B MP ####[facility] [address]asbs[address] [place], [place] [address]Dr. Shahbaz Rogel EGFR-AF CITIZEN [place] >60 Normal >=60 [facility] Comment on above: Performed By: #### B MP ####[facility] [address] [place] [address]Dr. Shahbaz Juan F EGFR-NON AF CITIZEN OF [place] >60 Normal >=60 [facility] Comment on above: Performed By: #### B MP ####[facility] [address] [place] [address]Dr. Shahbaz Rogel Glucose [Mass/Vol] 137 mg/dL Critically high 74-106 T [facility] Comment on above: Performed By: #### B MP ####[facility] [address] [place] [address]Dr. Shahbaz Rogel Potassium [Moles/Vol] 4.1 mmol/L Normal 3.5-5.1 [facility] Comment on above: Performed By: #### B MP ####[facility] [address]tyk[address] [place], [place] [address]Dr. Shahbaz Rogel Sodium [Moles/Vol] 141 mmol/L Normal 136-145 [facility] Comment on above: Performed By: #### B MP ####[facility] Gceilgguxw[address] [place], [place] [address]Dr. Shahbaz Rogel Urea nitrogen [Mass/Vol] 18.0 mg/dL Normal 7.0-18.0 [facility] Comment on above: Performed By: #### B MP ####[facility] [address]fr[address] [place], [place] [address]Dr. Shahbaz Rogel Urea nitrogen/Creatinine [Mass ratio] 22.5 mg/mg Normal [facility] Comment on above: Performed By: #### B MP ####[facility] [address] [place], [place] [address]Dr. Shahbaz Rogel CBC AUTO DIFFon 01-06-2023 BASO # 0.0 103/ul Normal 0.0-0.1 [facility] Comment on above: Performed By: #### C BC ####[facility] Ztk[address] [place], [place] [address]Dr. Shahbaz Rogel Basophils/100 WBC (Bld) 0.0 % Critically low 0.2-2.0 [facility] Comment on above: Performed By: #### C BC ####[facility] [address] [place] [address]Dr. Shahbaz Rogel EO # 0.0 103/ul Normal 0.0-0.7 [facility] Comment on above: Performed By: #### C BC ####[facility] [address] [place], [place] [address]Dr. Shahbaz Rogel Eosinophils/100 WBC (Bld) 0.0 % Critically low 0.9-7.0 [facility] Comment on above: Performed By: #### C BC ####[facility] [address]bs[address] [place], [place] [address]Dr. Shahbaz Rogel Erythrocyte distribution width (RBC) [Ratio] 13.8 % Normal 11.0-15.0 [facility] Comment on above: Performed By: #### C BC ####[facility] [address] [place], [place] [address]Dr. Shahbaz Rogel Hematocrit (Bld) [Volume fraction] 36.9 % Normal 36.0-48.0 [facility] Comment on above: Performed By: #### C BC ####[facility] [address] [place], [place] [address]Dr. Shahbaz Rogel Hemoglobin (Bld) [Mass/Vol] 11.8 g/dL Critically low 12.0-16.0 [facility] Comment on above: Performed By: #### C BC ####[facility] [address] [place], [place] [address]Dr. Shahbaz Rogel IG # 0.04 10e3/ul Critically high 0.00-0.03 [facility] Comment on above: Performed By: #### C BC ####[facility] [address] [place], [place] [address]Dr. Shahbaz Rogel IG % 1.1 % Critically high 0.0-0.5 [facility] Comment on above: Performed By: #### C BC ####[facility] Fultbbfebf[address] [place], [place] [address]Dr. Lilajarrod Rogel LYMPH # 0.5 103/ul Critically low 1.2-3.8 [facility] Comment on above: Performed By: #### C BC ####[facility] [address] [place] [address]Dr. Lilajarrod Rogel Lymphocytes/100 WBC (Bld) 13.9 % Critically low 20.5-60.0 [facility] Comment on above: Performed By: #### C BC ####[facility] [address] [place] [id number]. Shahbaz Rogel MANUAL DIFF REQ NO Normal [facility] Comment on above: Performed By: #### C BC ####[facility] [address] [place] [address]Dr. Shahbaz Rogel MCH (RBC) [Entitic mass] 27.8 pg Normal 26.7-34.0 [facility] Comment on above: Performed By: #### C BC ####[facility] Z[address]ri[address] [place], [place] [address]Dr. Shahbaz Rogel MCHC (RBC) [Mass/Vol] 32.0 g/dL Normal 29.9-35.2 [facility] Comment on above: Performed By: #### C BC ####[facility] [address] [place], [place] [address]Dr. Shahbaz Rogel MCV (RBC) [Entitic vol] 86.8 fL Normal 81.0-99.0 [facility] Comment on above: Performed By: #### C BC ####[facility] [address] [place], [place] [address]Dr. Shahbaz Rogel MONO # 0.1 103/ul Critically low 0.3-0.8 [facility] Comment on above: Performed By: #### C BC ####[facility] [address] [place], [place] [address]Dr. Shahbaz Rogel Monocytes/100 WBC (Bld) 3.7 % Normal 1.7-12.0 [facility] Comment on above: Performed By: #### C BC ####[facility] [address] [place], [place] [address]Dr. Shahbaz Rogel NEUT # 3.1 103/ul Normal 1.4-6.5 [facility] Comment on above: Performed By: #### C BC ####[facility] [address] [place] [address]Dr. Shahbaz Rogel Neutrophils/100 WBC (Bld) 81.3 % Critically high 43.0-75.0 [facility] Comment on above: Performed By: #### C BC ####[facility] [address]xf[address] [place] [id number]. Shahbaz Rogel Platelet mean volume (Bld) [Entitic vol] 9.8 fL Normal 9.5-13.5 [facility] Comment on above: Performed By: #### C BC ####[facility] [address] [place] [address]Dr. Shahbaz Rogel PLT 184 103/ul Normal 150-450 [facility] Comment on above: Performed By: #### C BC ####[facility] [address] [place] [address]Dr. Shahbaz Rogel RBC 4.25 106/ul Normal 4.20-5.40 [facility] Comment on above: Performed By: #### C BC ####[facility] [address] [place] [id number]. Shahbaz Rogel WBC 3.8 103/ul Critically low 4.0-11.0 [facility] Comment on above: Performed By: #### C BC ####[facility] [address] [place] [address]Dr. Shahbaz Rogel PROF CHEM 8 (BAS METB)on Anion gap [Moles/Vol] 9.2 mmol/L Normal [facility] Comment on above: Performed By: #### B MP ####[facility] [address] [place] [id number]. Shahbaz Rogel Calcium [Mass/Vol] 8.6 mg/dL Normal 8.5-10.1 [facility] Comment on above: Performed By: #### B MP ####[facility] Xtjwsmjscu[address] [place] [address]Dr. Shahbaz Rogel Chloride [Moles/Vol] 107 mmol/L Normal 98-107 [facility] Comment on above: Performed By: #### B MP ####[facility] Tjjdycvpsm5[address] [place] [address]Dr. Shahbaz Rogel CO2 [Moles/Vol] 29.3 mmol/L Normal 21.0-32.0 [facility] Comment on above: Performed By: #### B MP ####[facility] Apkgamxywl[address] [place] [address]Dr. Shahbaz Rogel Creatinine [Mass/Vol] 0.79 mg/dL Normal 0.55-1.02 [facility] Comment on above: Performed By: #### B MP ####[facility] Yrzmrcgmxo[address] [place], [place] [address]Dr. Shahbaz Rogel EGFR-AF CITIZEN [place] >60 Normal >=60 [facility] Comment on above: Performed By: #### B MP ####[facility] Kavtcdlqan82[address] [place], [place] [address]Dr. Shahbaz Rogel EGFR-NON AF CITIZEN OF [place] >60 Normal >=60 [facility] Comment on above: Performed By: #### B MP ####[facility] Qbalfyvtxp23[address] [place], [place] [address]Dr. Shahbaz Rogel Glucose [Mass/Vol] 159 mg/dL Critically high 74-106 [facility] Comment on above: Performed By: #### B MP ####[facility] Jslwomrihw9[address] [place], [place] [address]Dr. Shahbaz Rogel Potassium [Moles/Vol] 3.5 mmol/L Normal 3.5-5.1 [facility] Comment on above: Performed By: #### B MP ####[facility] Wdlalpgdgd77[address] [place], [place] [address]Dr. Shahbaz Rogel Sodium [Moles/Vol] 142 mmol/L Normal 136-145 [facility] Comment on above: Performed By: #### B MP ####[facility] Acdtzvrehm339[address] [place], [place] [address]Dr. Shahbaz Rogel Urea nitrogen [Mass/Vol] 21.0 mg/dL Critically high 7.0-18.0 [facility] Comment on above: Performed By: #### B MP ####[facility] Lzjjczcwgv[address] [place], [place] [address]Dr. Shahbaz Rogel Urea nitrogen/Creatinine [Mass ratio] 26.6 mg/mg Normal [facility] Comment on above: Performed By: #### B MP ####[facility] [address]kpfkvkztz5[address] [place] [address]Dr. Shahbaz Rogel XR CHEST 2 Von 01-06-2023 XR CHEST 2 V Normal [facility] CBC AUTO DIFFon 01-05-2023 BASO # 0.0 103/ul Normal 0.0-0.1 [facility] Comment on above: Performed By: #### C BC ####[facility] Zjzuedfvof[address] [place], [place] [address]Dr. Shahbaz Rogel Basophils/100 WBC (Bld) 0.2 % Normal 0.2-2.0 [facility] Comment on above: Performed By: #### C BC ####[facility] Sjyzcfprdx450[address] [place], [place] [address]Dr. Shahbaz Rogel EO # 0.0 103/ul Normal 0.0-0.7 [facility] Comment on above: Performed By: #### C BC ####[facility] Pdvypnhshj208[address] [place], [place] [address]Dr. Shahbaz Rogel Eosinophils/100 WBC (Bld) 0.0 % Critically low 0.9-7.0 [facility] Comment on above: Performed By: #### C BC ####[facility] Mludbvtcjr362[address] [place], [place] [address]Dr. Shahbaz Rogel Erythrocyte distribution width (RBC) [Ratio] 13.6 % Normal 11.0-15.0 [facility] Comment on above: Performed By: #### C BC ####[facility] Gbhialomzt32[address] [place], [place] [address]Dr. Shahbaz Rogel Hematocrit (Bld) [Volume fraction] 36.6 % Normal 36.0-48.0 [facility] Comment on above: Performed By: #### C BC ####[facility] Gwisticqwa6030[address] [place], [place] [address]Dr. Shahbaz Rogel Hemoglobin (Bld) [Mass/Vol] 11.6 g/dL Critically low 12.0-16.0 [facility] Comment on above: Performed By: #### C BC ####[facility] Hemcninung26[address] [place] [address]DrChen Shahbaz Rogel IG # 0.03 10e3/ul Normal 0.00-0.03 [facility] Comment on above: Performed By: #### C BC ####[facility] Jvvreopzln3714 [place] [address]DrChen Rogel IG % 0.5 % Normal 0.0-0.5 [facility] Comment on above: Performed By: #### C BC ####[facility] Febnxgqhlz398[address] [place], [place] [address]DrChen Rogel LYMPH # 0.6 103/ul Critically low 1.2-3.8 [facility] Comment on above: Performed By: #### C BC ####[facility] Pxsftvjrel8716[address] [place], [place] [address]DrChen Rogel Lymphocytes/100 WBC (Bld) 10.7 % Critically low 20.5-60.0 [facility] Comment on above: Performed By: #### C BC ####[facility] Bombnvccof7599[address] [place], [place] [address]DrChen Lilajarrod Rogel MANUAL DIFF REQ NO Normal [facility] Comment on above: Performed By: #### C BC ####[facility] Sbvumkskmj7060[address] [place], [place] [address]DrChen Rogel MCH (RBC) [Entitic mass] 27.7 pg Normal 26.7-34.0 [facility] Comment on above: Performed By: #### C BC ####[facility] Ihlualakix[address] [place], [place] [address]DrChen Rogel MCHC (RBC) [Mass/Vol] 31.7 g/dL Normal 29.9-35.2 [facility] Comment on above: Performed By: #### C BC ####[facility] Lpjvtjynwu9064[address] [place], [place] [address]DrChen Rogel MCV (RBC) [Entitic vol] 87.4 fL Normal 81.0-99.0 [facility] Comment on above: Performed By: #### C BC ####[facility] V[address]jqrsq2838 [place] [address]DrChen Sharpjarrod Juan F MONO # 0.1 103/ul Critically low 0.3-0.8 [facility] Comment on above: Performed By: #### C BC ####[facility] Sjvfgcvkdk6921 [place] [address]DrChen Rogel Monocytes/100 WBC (Bld) 2.5 % Normal 1.7-12.0 [facility] Comment on above: Performed By: #### C BC ####[facility] Jrimgaopkn7[address] [place], [place] [address]DrChen Sharpjarrod Juan F NEUT # 4.8 103/ul Normal 1.4-6.5 [facility] Comment on above: Performed By: #### C BC ####[facility] Oydrmutaow[address] [place], [place] [address]DrChen Rogel Neutrophils/100 WBC (Bld) 86.1 % Critically high 43.0-75.0 [facility] Comment on above: Performed By: #### C BC ####[facility] Nxjtdfiyhk224[address] [place], [place] [address]DrChen Rogel Platelet mean volume (Bld) [Entitic vol] 10.0 fL Normal 9.5-13.5 [facility] Comment on above: Performed By: #### C BC ####[facility] Nrsmhpoaho1845[address] [place], [place] [address]Dr. Shahbaz Rogel PLT 193 103/ul Normal 150-450 [facility] Comment on above: Performed By: #### C BC ####[facility] Flhwztyxea427[address] [place], [place] [address]DrChen Rogel RBC 4.19 106/ul Critically low 4.20-5.40 [facility] Comment on above: Performed By: #### C BC ####[facility] Prmnwhwdra612[address] [place], [place] [address]DrChen Rogel WBC 5.6 103/ul Normal 4.0-11.0 [facility] Comment on above: Performed By: #### C BC ####[facility] [address]oukwkvg[address] [place] [address]Dr. Shahbaz Rogel PROF CHEM 8 (BAS METB)on Anion gap [Moles/Vol] 12.7 mmol/L Normal Th [facility] Comment on above: Performed By: #### B MP ####[facility] Cirdynsozm[address] [place] [address]Dr. Shahbaz Rogel Calcium [Mass/Vol] 8.8 mg/dL Normal 8.5-10.1 [facility] Comment on above: Performed By: #### B MP ####[facility] Exlfpkvgui6628[address] [place], [place] [address]Dr. Shahbaz Rogel Chloride [Moles/Vol] 107 mmol/L Normal 98-107 [facility] Comment on above: Performed By: #### B MP ####[facility] Azqxsbcofc21[address] [place], [place] [address]Dr. Shahbaz Rogel CO2 [Moles/Vol] 26.9 mmol/L Normal 21.0-32.0 [facility] Comment on above: Performed By: #### B MP ####[facility] Dtazyjxfhc05[address] [place], [place] [address]DrChen Rogel Creatinine [Mass/Vol] 0.81 mg/dL Normal 0.55-1.02 [facility] Comment on above: Performed By: #### B MP ####[facility] Unidobeqsq[address] [place] [address]Dr. Shahbaz Rogel EGFR-AF [place]IZ[place] >60 Normal >=60 [facility] Comment on above: Performed By: #### B MP ####[facility] Drzljepqtk[address] [place], [place] [address]Dr. Shahbaz Rogel EGFR-NON AF CITIZ[place] >60 Normal >=60 [facility] Comment on above: Performed By: #### B MP ####[facility] Ftaxqvtfwn962[address] [place], [place] [address]Dr. Shahbaz Rogel Glucose [Mass/Vol] 144 mg/dL Critically high 74-106 [facility] Comment on above: Performed By: #### B MP ####[facility] [address]jihfdt7[address] [place] [address]Dr. Lilajarrod Juan F Potassium [Moles/Vol] 3.6 mmol/L Normal 3.5-5.1 [facility] Comment on above: Performed By: #### B MP ####[facility] Vrgmgduhcl[address] [place] [address]Dr. Shahbaz Rogel Sodium [Moles/Vol] 143 mmol/L Normal 136-145 [facility] Comment on above: Performed By: #### B MP ####[facility] Wptkhvmrlb4058 [place] [address]Dr. Lilajarrod Juan F Urea nitrogen [Mass/Vol] 20.0 mg/dL Critically high 7.0-18.0 [facility] Comment on above: Performed By: #### B MP ####[facility] Ldlmukkzbz2342 [place] [address]Dr. Shahbaz Rogel Urea nitrogen/Creatinine [Mass ratio] 24.7 mg/mg Normal [facility] Comment on above: Performed By: #### B MP ####[facility] Eyrzjigrcl9240 [place] [address]Dr. Shahbaz Juan F CBC W MANUAL DIFFon 01-05-20 23 ATYPICAL LYMPH # Normal [facility] Comment on above: Performed By: #### C BCMAN ####[facility] Pmttsijxlc5813 [place] [address]Dr. Shahbaz Rogel ATYPICAL LYMPH % Normal [facility] Comment on above: Performed By: #### C BCMAN ####[facility] Nvuhnpobjw9584 [place] [address]Dr. Shahbaz Rogel BAND # 0.0 103/ul Normal 0.0-0.3 [facility] Comment on above: Performed By: #### C BCMAN ####[facility] Axzttejarr7503 [place] [address]Dr. Shahbaz Rogel BAND % 0 % Normal 0-5 [facility] Comment on above: Performed By: #### C BCMAN ####[facility] Gnkxwndpwm2252 [place] [address]Dr. Shahbaz Rogel BASOM # 0.00 103/ul Normal 0.00-0.10 [facility] Comment on above: Performed By: #### C BCBRICE ####[facility] Gcoldmtshl7927 [place] [address]Dr. Shahbaz Rogel BASOM % 0.0 % Critically low 0.2-2.0 [facility] Comment on above: Performed By: #### C BCBRICE ####[facility] Sivhqgzrwd0927 [place] [address]Dr. Shahbaz Rogel BLAST # Normal [facility] Comment on above: Performed By: #### C CAIN ####[facility] [address]puxyoynty[address] [place], [place] [address]Dr. Shahbaz Rogel BLAST % Normal [facility] Comment on above: Performed By: #### C CAIN ####[facility] Gajbhdorkq[address] [place], [place] [address]Dr. Shahbaz Rogel CORRECTED WBC Normal 4.0-11.0 [facility] Comment on above: Performed By: #### C CAIN ####[facility] Naetntbklj[address] [place], [place] [address]Dr. Shahbaz Rogel EOS # 0.00 103/ul Normal 0.00-0.70 [facility] Comment on above: Performed By: #### C CAIN ####[facility] Qxefgjxxwk8[address] [place], [place] [address]Dr. Shahbaz Rogel EOS% 0.0 % Critically low 0.9-7.0 [facility] Comment on above: Performed By: #### C CAIN ####[facility] Qihmdvjysa[address] [place], [place] [address]Dr. Shahbaz Rogel HCT 36.5 % Normal 36.0-48.0 [facility] Comment on above: Performed By: #### C BCBRICE ####[facility] Tispjtwgnp[address] [place], [place] [address]Dr. Shahbaz Rogel HGB 11.8 g/dl Critically low 12.0-16.0 [facility] Comment on above: Performed By: #### C CAIN ####[facility] Uwdzpqtwrb2493 [place] [id number]. Shahbaz Rogel LYMPHM # 0.42 103/ul Critically low 1.20-3.80 [facility] Comment on above: Performed By: #### C CAIN ####[facility] Qqifsmtzbz3752 [place] [id number]. Shahbaz Rogel LYMPHM% 12.0 % Critically low 20.5-60.0 [facility] Comment on above: Performed By: #### C CAIN ####[facility] Erfitodczq0847 [place] [id number]. Shahbaz Rogel MCH 28.0 pg Normal 26.7-34.0 [facility] Comment on above: Performed By: #### C CAIN ####[facility] Piinbqheti2041 [place] [address]Dr. Shahbaz oRgel MCHC 32.3 g/dl Normal 29.9-35.2 [facility] Comment on above: Performed By: #### C CAIN ####[facility] Dkkrarfzxk4666 [place] [address]Dr. Shahbaz Rogel MCV 86.7 fL Normal 81.0-99.0 [facility] Comment on above: Performed By: #### C CAIN ####[facility] Ilxhajhqrd9021 [place] [id number]. Shahbaz Rogel METAMYELOCYTE # Normal [facility] Comment on above: Performed By: #### C CAIN ####[facility] Jmxzgnnunw7028 [place] [id number]. Shahbaz Rogel METAMYELOCYTE % Normal [facility] Comment on above: Performed By: #### C CAIN ####[facility] Hzjodjjigi296[address] [place], [place] [address]Dr. Shahbaz Rogel MONOM# 0.07 103/ul Critically low 0.30-0.80 [facility] Comment on above: Performed By: #### C CAIN ####[facility] Etiyfueioq4537[address] [place], [place] [address]Dr. Shahbaz Rogel MONOM% 2.0 % Normal 1.7-12.0 [facility] Comment on above: Performed By: #### C CAIN ####[facility] Zwyxsgaepb0105 [place] [address]Dr. Shahbaz Rogel MPV 9.9 fL Normal 9.5-13.5 [facility] Comment on above: Performed By: #### C CAIN ####[facility] Kxpaxhprhg2494 [place] [id number]. Shahbaz Rogel MYELOCYTE # Normal [facility] Comment on above: Performed By: #### C CAIN ####[facility] Fihsqquccb5164 [place] [id number]. Shahbaz Rogel MYELOCYTE % Normal [facility] Comment on above: Performed By: #### C CAIN ####[facility] Ssqcijsvoj2179 [place] [address]Dr. Shahbaz Rogel NRBC Normal [facility] Comment on above: Performed By: #### C CAIN ####[facility] Mmqgcanqfk[address] [place], [place] [address]Dr. Shahbaz Rogel PLT 178 103/ul Normal 150-450 [facility] Comment on above: Performed By: #### C CAIN ####[facility] Skgdnelybr[address] [place], [place] [address]Dr. Shahbaz Rogel RBC 4.21 106/ul Normal 4.20-5.40 [facility] Comment on above: Performed By: #### C CAIN ####[facility] Xqotbwnuwa8795 [place] [id number]. Shahbaz Rogel RDW 13.2 % Normal 11.0-15.0 [facility] Comment on above: Performed By: #### C CAIN ####[facility] Ntpuveuodt3999 [place] [address]Dr. Shahbaz Rogel SEG # 3.01 103/ul Normal 1.40-6.50 [facility] Comment on above: Performed By: #### C CAIN ####[facility] Hzmbwheprg699[address] [place], [place] [address]Dr. Shahbaz Rogel SEG % 86.0 % Critically high 43.0-75.0 [facility] Comment on above: Performed By: #### C BCMAN ####[facility] Lzpdfyfxdv8006 [place] [address]Dr. Shahbaz Rogel WBC 3.5 103/ul Critically low 4.0-11.0 [facility] Comment on above: Performed By: #### C BCMAN ####[facility] Dmhwgucqxc[address] [place], [place] [address]Dr. Shahbaz Rogel PROF CHEM 8 (BAS METB)on Anion gap [Moles/Vol] 10.5 mmol/L Normal Th e [facility] Comment on above: Performed By: #### B MP ####[facility] Xoiourrflu36[address] [place], [place] [address]Dr. Shahbaz Rogel Calcium [Mass/Vol] 8.7 mg/dL Normal 8.5-10.1 [facility] Comment on above: Performed By: #### B MP ####[facility] Qncavpfcep6848[address] [place], [place] [address]Dr. Shahbaz Rogel Chloride [Moles/Vol] 108 mmol/L Critically high 98-107 [facility] Comment on above: Performed By: #### B MP ####[facility] Rqgeucpqgz1617[address] [place], [place] [address]Dr. Shahbaz Rogel CO2 [Moles/Vol] 25.2 mmol/L Normal 21.0-32.0 [facility] Comment on above: Performed By: #### B MP ####[facility] Ywfqmrpwjr720[address] [place], [place] [address]Dr. Shahbaz Rogel Creatinine [Mass/Vol] 0.77 mg/dL Normal 0.55-1.02 [facility] Comment on above: Performed By: #### B MP ####[facility] Vtlqblvsjj83[address] [place], [place] [address]Dr. Shahbaz Rogel EGFR-AF [place]IZ[place] >60 Normal >=60 [facility] Comment on above: Performed By: #### B MP ####[facility] Lwqxhauxad57[address] [place], [place] [address]Dr. Shahbaz Rogel EGFR-NON AF [place]IZ[place] >60 Normal >=60 [facility] Comment on above: Performed By: #### B MP ####[facility] Bmcsmhtbni5525[address] [place], [place] [address]Dr. Lilajarrod Juan F Glucose [Mass/Vol] 169 mg/dL Critically high 74-106 T [facility] Comment on above: Performed By: #### B MP ####[facility] Uzjxbpvyzp8840[address] [place], [place] [address]Dr. Lilajarrod Juan F Potassium [Moles/Vol] 3.7 mmol/L Normal 3.5-5.1 [facility] Comment on above: Performed By: #### B MP ####[facility] Jmbhwftlga8068[address] [place], [place] [address]Dr. Shahbaz Rogel Sodium [Moles/Vol] 140 mmol/L Normal 136-145 [facility] Comment on above: Performed By: #### B MP ####[facility] Idtgkuarcj7877[address] [place], [place] [address]Dr. Lilajarrod Juan F Urea nitrogen [Mass/Vol] 14.0 mg/dL Normal 7.0-18.0 [facility] Comment on above: Performed By: #### B MP ####[facility] Nsssrfwblh26[address] [place], [place] [address]Dr. Lilajarrod Juan F Urea nitrogen/Creatinine [Mass ratio] 18.2 mg/mg Normal [facility] Comment on above: Performed By: #### B MP ####[facility] Nrgatvockl119[address] [place], [place] [address]Dr. Shahbaz Rogel RESPIRATORY PANEL PLUSon Adenovirus Not detected Normal NOT DETECTED [facility] Comment on above: Performed By: #### R SPLUS ####[facility] Cfktxnykev9[address] [place], [place] [address]Dr. Shahbaz Rogel B. Parapertusis Not detected Normal NOT DETECTED [facility] Comment on above: Performed By: #### R SPLUS ####[facility] Gabaejkotp694[address] [place], [place] [address]Dr. Shahbaz Rogel B. Pertussis Not detected Normal NOT DETECTED [facility] Comment on above: Performed By: #### R SPLUS ####[facility] Lrugyzymhh85[address] [place] [address]Dr. Yijarrod Rogel Chlamydia Pneumoniae Not detected Normal NOT DETECTED [facility] Comment on above: Performed By: #### R SPLUS ####[facility] Rnwwrpiltk4000 [place] [address]Dr. Yijarrod Rogel Coronavirus 229E Not detected Normal NOT DETECTED [facility] Comment on above: Performed By: #### R SPLUS ####[facility] Mlvxubfrjl[address] [place], [place] [address]Dr. Yijarrod Rogel Coronavirus HKU1 Not detected Normal NOT DETECTED [facility] Comment on above: Performed By: #### R SPLUS ####[facility] Mxsnuoqjsh[address] [place], [place] [address]Dr. Shahbaz Rogel Coronavirus NL63 Not detected Normal NOT DETECTED [facility] Comment on above: Performed By: #### R SPLUS ####[facility] Suugdspjlw[address] [place], [place] [address]Dr. Yijarrod Rogel Coronavirus OC43 Not detected Normal NOT DETECTED [facility] Comment on above: Performed By: #### R SPLUS ####[facility] Jwewzmvnhh36[address] [place], [place] [address]Dr. Yilan Rogel Influenza A H1 Not detected Normal NOT DETECTED [facility] Comment on above: Performed By: #### R SPLUS ####[facility] Fqckbxeffr234[address] [place], [place] [address]Dr. Yilan Rogel Influenza A H1 2009 Not detected Normal NOT DETECTED [facility] Comment on above: Performed By: #### R SPLUS ####[facility] Worxigfjat204[address] [place], [place] [address]Dr. Yilan Rogel Influenza A H3 Not detected Normal NOT DETECTED [facility] Comment on above: Performed By: #### R SPLUS ####[facility] Kxvyibrxgi724[address] [place], [place] [address]Dr. Yilan Rogel Influenza B Not detected Normal NOT DETECTED [facility] Comment on above: Performed By: #### R SPLUS ####[facility] Qmyemtfuqj4024[address] [place], [place] [address]Dr. Shahbaz Rogel Metapneumovirus Detected Abnormal NOT DETECTED [facility] Comment on above: Performed By: #### R SPLUS ####[facility] Zxb[address]opbdyo50[address] [place] [address]Dr. Shahbaz Rogel Mycoplas. Pneumoniae Not detected Normal NOT DETECTED [facility] Comment on above: Performed By: #### R SPLUS ####[facility] Zztkcjvdts6509 [place] [address]Dr. Lilajarrod Rogel Parainfluenza 1 Not detected Normal NOT DETECTED [facility] Comment on above: Performed By: #### R SPLUS ####[facility] Iorynmqmwi6266 [place] [address]Dr. Shahbaz Rogel Parainfluenza 2 Not detected Normal NOT DETECTED [facility] Comment on above: Performed By: #### R SPLUS ####[facility] Bcwkjnfjez8472 [place] [address]Dr. Lilajarrod Rogel Parainfluenza 3 Not detected Normal NOT DETECTED [facility] Comment on above: Performed By: #### R SPLUS ####[facility] Cqcvghfych0218 [place] [address]Dr. Shahbaz Rogel Parainfluenza 4 Not detected Normal NOT DETECTED [facility] Comment on above: Performed By: #### R SPLUS ####[facility] Wbgvhvuryc7696 [place] [address]Dr. Shahbaz Rogel Rhino/Enterovirus Not detected Normal NOT DETECTED [facility] Comment on above: Performed By: #### R SPLUS ####[facility] [address] [place] [address]Dr. Shahbaz Rogel RP2 Header 1 RESPIRATORY PANEL: VIRUSES Normal [facility] Comment on above: Performed By: #### R SPLUS ####[facility] L[address]jrnfumt[address] [place] [address]Dr. Shahbaz Rogel RP2 Header 2 RESPIRATORY PANEL: BACTERIA Normal [facility] Comment on above: Performed By: #### R SPLUS ####[facility] [address]gpi[address] [place] [address]Dr. Shahbaz Rogel RSV Not detected Normal NOT DETECTED [facility] Comment on above: Performed By: #### R SPLUS ####[facility] Tetizhgkrt[address] [place] [address]Dr. Shahbaz Rogel SARS-CoV-2 (COVID-19) RNA PAVAN+probe Ql (Unsp spec) Not detected Normal NOT DETECTED [facility] Comment on above: Performed By: #### R SPLUS ####[facility] Ntmtgojprn[address] [place] [address]Dr. Shahbaz Juan F CARDIAC ROSALINA 3-6on 3 CK [Catalytic activity/Vol] 148 U/L Normal 26-192 [facility] Comment on above: Performed By: #### C MREP ####[facility] [address]eh[address] [place] [address]Dr. Shahbaz Juan F CK.MB [Mass/Vol] 0.84 ng/mL Normal <=3.60 [facility] Comment on above: Performed By: #### C MREP ####[facility] Z[address]bpum[address] [place], [place] [address]Dr. Shahbaz Rogel HSTROP 6.4 pg/mL Normal 4.0-51.3 [facility] Comment on above: Result Comment: CUT- OFF POINTS HAVE BEEN ESTABLISHED BASED ON THE FOURTH UNIVERSAL DEFINITIONS OF MYOCARDIALINFARCTION. THE UPPER REFERENCE LIMIT (URL) OF TROPONIN, DEFINED THE 99TH PERCENTILE OFcTnI DISTRIBUTION IN A REFERENCE POPULATION, HAS BEEN CONFIRMED THE DECISION THRESHOLDFOR IN DIAGNOSIS. Performed By: #### C MREP ####[facility] [address]wh[address]mirsg[address] [place] [address]Dr. Shahbaz Juan F CBC W MANUAL DIFFon 01-04-20 23 ATYPICAL LYMPH # Normal [facility] Comment on above: Performed By: #### C BCMAN ####[facility] [address]mrolt[address] [place] [address]Dr. Shahbaz Rogel ATYPICAL LYMPH % Normal [facility] Comment on above: Performed By: #### C BCMAN ####[facility] Wxawpmopfk[address] [place] [address]Dr. Yilan Rogel BAND # 0.0 103/ul Normal 0.0-0.3 [facility] Comment on above: Performed By: #### C BCMAN ####[facility] Ixdnlctnci[address] [place] [address]Dr. Shahbaz Rogel BAND % 0 % Normal 0-5 [facility] Comment on above: Performed By: #### C BCMAN ####[facility] Zorzwjliuy[address] [place], [place] [address]Dr. Shahbaz Rogel BASOM # 0.00 103/ul Normal 0.00-0.10 [facility] Comment on above: Performed By: #### C BCBRICE ####[facility] [address]emq[address]zpzz[address] [place], [place] [address]Dr. Shahbaz Rogel BASOM % 0.0 % Critically low 0.2-2.0 [facility] Comment on above: Performed By: #### C BCBRICE ####[facility] Y[address]wdczqj[address] [place], [place] [address]Dr. Shahbaz Rogel BLAST # Normal [facility] Comment on above: Performed By: #### C CAIN ####[facility] Kvdurdpsvk[address] [place], [place] [address]Dr. Shahbaz Rogel BLAST % Normal [facility] Comment on above: Performed By: #### C BCBRICE ####[facility] Emhhssjdeu[address] [place], [place] [address]Dr. Shahbaz Rogel CORRECTED WBC Normal 4.0-11.0 [facility] Comment on above: Performed By: #### C BCBRICE ####[facility] Tfbqriokju7[address] [place], [place] [address]Dr. Shahbaz Rogel EOS # 0.02 103/ul Normal 0.00-0.70 [facility] Comment on above: Performed By: #### C BCBRICE ####[facility] Wzxgrhnwng[address] [place], [place] [address]Dr. Shahbaz Rogel EOS% 1.0 % Normal 0.9-7.0 [facility] Comment on above: Performed By: #### C BCBRICE ####[facility] Tsjqrsqipn[address] [place], [place] [address]Dr. Shahbaz Rogel HCT 37.5 % Normal 36.0-48.0 [facility] Comment on above: Performed By: #### C CAIN ####[facility] D[address]njhthzt[address] [place] [address]Dr. Shahbaz Rogel HGB 12.0 g/dl Normal 12.0-16.0 [facility] Comment on above: Performed By: #### C CAIN ####[facility] Zkxblpdzfd37[address] [place] [address]Dr. Shahbaz Rogel LYMPHM # 0.21 103/ul Critically low 1.20-3.80 [facility] Comment on above: Performed By: #### C CAIN ####[facility] Wavdltdacc25[address] [place] [address]Dr. Shahbaz Rogel LYMPHM% 13.0 % Critically low 20.5-60.0 [facility] Comment on above: Performed By: #### C CAIN ####[facility] Dzuodserzr[address] [place] [address]Dr. Shahbaz Rogel MCH 27.8 pg Normal 26.7-34.0 [facility] Comment on above: Performed By: #### Cheri BARLOW ####[facility] [address]uvtqekgq[address] [place], [place] [address]Dr. Shahbaz Rogel MCHC 32.0 g/dl Normal 29.9-35.2 [facility] Comment on above: Performed By: #### Cheri BARLOW ####[facility] [address]arxezhl[address] [place] [address]Dr. Shahbaz Rogel MCV 86.8 fL Normal 81.0-99.0 [facility] Comment on above: Performed By: #### C CAIN ####[facility] Z[address]ooqrisp67[address] [place] [id number]. Shahbaz Rogel METAMYELOCYTE # Normal [facility] Comment on above: Performed By: #### C CAIN ####[facility] Sxttnogxhj40[address] [place] [address]Dr. Shahbaz Rogel METAMYELOCYTE % Normal [facility] Comment on above: Performed By: #### C CAIN ####[facility] R[address]tfevefr[address] [place] [address]Dr. Shahbaz Rogel MONOM# 0.02 103/ul Critically low 0.30-0.80 [facility] Comment on above: Performed By: #### C CAIN ####[facility] Hmjejoedbx8[address] [place] [address]Dr. Shahbaz Rogel MONOM% 1.0 % Critically low 1.7-12.0 [facility] Comment on above: Performed By: #### C CAIN ####[facility] Rwfvtpnhva4637 [place] [id number]. Shahbaz Rogel MPV 9.5 fL Normal 9.5-13.5 [facility] Comment on above: Performed By: #### C CAIN ####[facility] Qyxacrfykm112[address] [place] [address]Dr. Shahbaz Rogel MYELOCYTE # Normal [facility] Comment on above: Performed By: #### Cheri BARLOW ####[facility] Ndjzlvmueg[address] [place] [address]Dr. Shahbaz Rogel MYELOCYTE % Normal [facility] Comment on above: Performed By: #### Cheri BARLOW ####[facility] Yxjpet[address] [place], [place] [address]Dr. Shahbaz Rogel NRBC Normal [facility] Comment on above: Performed By: #### Cheri BARLOW ####[facility] [address]erremknlf[address] [place] [id number]. Shahbaz Rogel PLT 173 103/ul Normal 150-450 [facility] Comment on above: Performed By: #### C CAIN ####[facility] Logurjvcro54[address] [place] [id number]. Shahbaz Rogel RBC 4.32 106/ul Normal 4.20-5.40 [facility] Comment on above: Performed By: #### C CAIN ####[facility] Sixvoznrye39[address] [place] [id number]. Shahbaz Rogel RDW 13.1 % Normal 11.0-15.0 [facility] Comment on above: Performed By: #### Cheri BARLOW ####[facility] Ehlgxaliud75[address] [place] [id number]. Shahbaz Rogel SEG # 1.36 103/ul Critically low 1.40-6.50 [facility] Comment on above: Performed By: #### C CAIN ####[facility] Dqhqnumkdl44[address] [place] [address]Dr. Shahbaz Juan F SEG % 85.0 % Critically high 43.0-75.0 [facility] Comment on above: Performed By: #### C CAIN ####[facility] Gnsvmataqt7[address] [place] [address]Dr. Shahbaz Juan F WBC 1.6 103/ul Critically low 4.0-11.0 [facility] Comment on above: Performed By: #### C CAIN ####[facility] Urbywypnlg[address] [place], [place] [address]Dr. Shahbaz Rogel CT CHEST WO CONon 01-03-2023 CT CHEST WO CON Normal [facility] ER URINE PROFILEon 3 Bilirubin Ql (U) Negative Normal NEGATIVE [facility] Comment on above: Performed By: #### E RUR ####[facility] Mqivlhgwic[address] [place], [place] [address]Dr. Shahbaz Rogel Clarity (U) CLEAR Normal CLEAR [facility] Comment on above: Performed By: #### E RUR ####[facility] Twdbzumrsu[address] [place], [place] [address]Dr. Shahbaz Rogel Color (U) LT. YELLOW Normal YELLOW [facility] Comment on above: Performed By: #### E RUR ####[facility] Vknedmxror[address] [place], [place] [address]Dr. Shahbaz Rogel ERUAHD A micrscopic examina tion will be performed if indicated. Normal [facility] Comment on above: Performed By: #### E RUR ####[facility] Dwurqppmgt[address] [place], [place] [address]Dr. Shahbaz Rogel Glucose Ql (U) Negative Normal NEGATIVE [facility] Comment on above: Performed By: #### E RUR ####[facility] Al[address]ojtpd[address] [place] [address]Dr. Shahbaz Rogel Hemoglobin Ql (U) Negative Normal NEGATIVE [facility] Comment on above: Performed By: #### E RUR ####[facility] Baibynwebk13[address] [place], [place] [address]Dr. Shabhaz Rogel Ketones Ql (U) Negative Normal NEGATIVE [facility] Comment on above: Performed By: #### E RUR ####[facility] Rujnucxmjf16[address] [place], [place] [address]Dr. Shahbaz Rogel LEUKOCYTES Negative Normal NEGATIVE [facility] Comment on above: Performed By: #### E RUR ####[facility] Xhofbqvwiv[address] [place], [place] [address]Dr. Shahbaz Rogel Nitrite Ql (U) Negative Normal NEGATIVE [facility] Comment on above: Performed By: #### E RUR ####[facility] Zrffnkykct[address] [place], [place] [address]Dr. Shahbaz Rogel pH (U) 6.0 [pH] Normal 5-9 [facility] Comment on above: Performed By: #### E RUR ####[facility] Jktlwaevig[address] [place], [place] [address]Dr. Shahbaz Rogel SPEC GRAVITY <=1.005 Abnormal 1.005-<=1. 025 [facility] Comment on above: Performed By: #### E RUR ####[facility] Iucoqvkegg[address] [place], [place] [address]Dr. Shahbaz Rogel UA PROTEIN Negative Normal NEGATIVE/ TRACE [facility] Comment on above: Performed By: #### E RUR ####[facility] Gyhrirccgc[address] [place], [place] [address]Dr. Shahbaz Rogel UR MICRO IND NOT INDICATED Normal [facility] Comment on above: Performed By: #### E RUR ####[facility] Mngzinumya2320[address] [place], [place] [address]Dr. Shahbaz Rogel Urobilinogen Qn (U) 0.2 {Melida'U}/dL Normal 0.2 - 1. 0 [facility] Comment on above: Performed By: #### E RUR ####[facility] [address]pos[address]hbyi[address] [place] [address]Dr. Shahbaz Rogel LACTATE/LACTIC ACIDon 2022 Lactate [Moles/Vol] 1.5 mmol/L Normal 0.4-2.0 [facility] Comment on above: Performed By: #### L ACT ####[facility] Hjlbnhvjba77[address] [place] [address]Dr. Shahbaz Rogel PROF CHEM 8 (BAS METB)on Anion gap [Moles/Vol] 11.6 mmol/L Normal [facility] Comment on above: Performed By: #### B MP ####[facility] Rrdhtnxljl[address] [place], [place] [address]Dr. Shahbaz Rogel Calcium [Mass/Vol] 8.1 mg/dL Critically low 8.5-10.1 [facility] Comment on above: Performed By: #### B MP ####[facility] Imzgksdwyj[address] [place], [place] [address]Dr. Shahbaz Rogel Chloride [Moles/Vol] 109 mmol/L Critically high 98-107 [facility] Comment on above: Performed By: #### B MP ####[facility] Fwgmgiywvx[address] [place], [place] [address]Dr. Shahbaz Rogel CO2 [Moles/Vol] 25.2 mmol/L Normal 21.0-32.0 [facility] Comment on above: Performed By: #### B MP ####[facility] Xjzyeyhote[address] [place], [place] [address]Dr. Shahbaz Rogel Creatinine [Mass/Vol] 0.89 mg/dL Normal 0.55-1.02 [facility] Comment on above: Performed By: #### B MP ####[facility] Krgcomjazy[address] [place], [place] [address]Dr. Shahbaz Rogel EGFR-AF CITIZEN OF [place] >60 Normal >=60 [facility] Comment on above: Performed By: #### B MP ####[facility] [address]qvhyznbj[address] [place], [place] [address]Dr. Shahbaz Rogel EGFR-NON AF CITIZEN OF [place] >60 Normal >=60 [facility] Comment on above: Performed By: #### B MP ####[facility] Srqevzqrfr0402 [place] [id number]. Shahbaz Rogel Glucose [Mass/Vol] 167 mg/dL Critically high 74-106 [facility] Comment on above: Performed By: #### B MP ####[facility] Clrnflsekz5[address] [place] [id number]. Shahbaz Rogel Potassium [Moles/Vol] 3.8 mmol/L Normal 3.5-5.1 [facility] Comment on above: Performed By: #### B MP ####[facility] Yqiievbuon2467 [place] [address]Dr. Shahbaz Rogel Sodium [Moles/Vol] 142 mmol/L Normal 136-145 [facility] Comment on above: Performed By: #### B MP ####[facility] Omugsgcspf3499 [place] [address]Dr. Shahbaz Rogel Urea nitrogen [Mass/Vol] 9.0 mg/dL Normal 7.0-18.0 [facility] Comment on above: Performed By: #### B MP ####[facility] Zmaivkaxgb[address] [place], [place] [address]Dr. Shahbaz Rogel Urea nitrogen/Creatinine [Mass ratio] 10.1 mg/mg Normal [facility] Comment on above: Performed By: #### B MP ####[facility] A[address]frkpjaj39[address] [place] [address]Dr. Shahbaz Rogel CARDIAC ROSALINA ADMITon 023 CK [Catalytic activity/Vol] 173 U/L Normal 26-192 [facility] Comment on above: Performed By: #### C MADM, BMP ####[facility] Omlylqrgno8[address] [place] [id number]. Shahbaz Rogel CK.MB [Mass/Vol] 0.55 ng/mL Normal <=3.60 [facility] Comment on above: Performed By: #### C MADM, BMP ####[facility] Uyvzqppvzf38[address] [place] [id number]. Shahbaz Rogel HSTROP 5.9 pg/mL Normal 4.0-51.3 [facility] Comment on above: Result Comment: CUT- OFF POINTS HAVE BEEN ESTABLISHED BASED ON THE FOURTH UNIVERSAL DEFINITIONS OF MYOCARDIALINFARCTION. THE UPPER REFERENCE LIMIT (URL) OF TROPONIN, DEFINED THE 99TH PERCENTILE OFcTnI DISTRIBUTION IN A REFERENCE POPULATION, HAS BEEN CONFIRMED THE DECISION THRESHOLDFOR IN DIAGNOSIS. Performed By: #### C EMILIO FALCON ####[facility] Umvgpvzkvt56[address] [place] [address]Dr. Shahbaz Rogel LEN 76 ng/mL Normal 9-82 [facility] Comment on above: Performed By: #### C EZEKIEL BMP ####[facility] Lltdyyargv8562 [place] [address]Dr. Shahbaz Rogel CBC W MANUAL DIFFon 01-03-20 23 ATYPICAL LYMPH # Normal [facility] Comment on above: Performed By: #### Cheri BARLOW ####[facility] Mtuoapjblj[address] [place], [place] [address]Dr. Shahbaz Rogel ATYPICAL LYMPH % Normal [facility] Comment on above: Performed By: #### Cheri BARLOW ####[facility] Ynrfycorhq[address] [place] [address]Dr. Yilan Rogel BAND # Normal 0.0-0.3 [facility] Comment on above: Performed By: #### Cheri BARLOW ####[facility] Mdtlfiowix9[address] [place] [address]Dr. Yilan Rogel BAND % Normal 0-5 [facility] Comment on above: Performed By: #### Cheri BARLOW ####[facility] Fnvxyjhlrz032[address] [place] [address]Dr. Shahbaz Rogel BASOM # 0.00 103/ul Normal 0.00-0.10 [facility] Comment on above: Performed By: #### Cheri BARLOW ####[facility] Rfsrzwsfvv[address] [place], [place] [address]Dr. Shahbaz Rogel BASOM % 0.0 % Critically low 0.2-2.0 [facility] Comment on above: Performed By: #### Cheri BARLOW ####[facility] Xrhbfyiukc[address] [place], [place] [address]Dr. Yilan Rogel BLAST # Normal [facility] Comment on above: Performed By: #### C CAIN ####[facility] Pulfjsanlr36[address] [place] [address]Dr. Shahbaz Rogel BLAST % Normal [facility] Comment on above: Performed By: #### C CAIN ####[facility] Atejpeovpl90[address] [place] [id number]. Shahbaz Rogel CORRECTED WBC Normal 4.0-11.0 [facility] Comment on above: Performed By: #### C CAIN ####[facility] Vjlamfwcag1385 [place] [address]Dr. Shahbaz Rogel EOS # 0.03 103/ul Normal 0.00-0.70 [facility] Comment on above: Performed By: #### C CAIN ####[facility] Onmeiwxlmi8473 [place] [address]Dr. Shahbaz Rogel EOS% 1.0 % Normal 0.9-7.0 [facility] Comment on above: Performed By: #### C CAIN ####[facility] Drxpnhxugx3117 [place] [address]Dr. Shahbaz Rogel HCT 42.8 % Normal 36.0-48.0 [facility] Comment on above: Performed By: #### C CAIN ####[facility] Bskyxdsmeh[address] [place], [place] [address]Dr. Shahbaz Rogel HGB 14.1 g/dl Normal 12.0-16.0 [facility] Comment on above: Performed By: #### C CAIN ####[facility] Ljnifnfuob[address] [place] [address]Dr. Shahbaz Rogel LYMPHM # 0.64 103/ul Critically low 1.20-3.80 [facility] Comment on above: Performed By: #### C CAIN ####[facility] Kvpvxnwzox6539 [place] [address]Dr. Shahbaz Rogel LYMPHM% 23.0 % Normal 20.5-60.0 [facility] Comment on above: Performed By: #### C CAIN ####[facility] Vrvnhnwrag6865 [place], [place] [address]Wi. Shahbaz Rogel MCH 28.0 pg Normal 26.7-34.0 [facility] Comment on above: Performed By: #### C CAIN ####[facility] Vzmospbski9392 [place] [address]Dr. Shahbaz Rogel MCHC 32.9 g/dl Normal 29.9-35.2 [facility] Comment on above: Performed By: #### C CAIN ####[facility] Svelocbfgu6382 [place] [address]Dr. Shahbaz Rogel MCV 84.9 fL Normal 81.0-99.0 [facility] Comment on above: Performed By: #### C CAIN ####[facility] Cczlmeleoi1599 [place] [address]Dr. Shahbaz Rogel METAMYELOCYTE # Normal [facility] Comment on above: Performed By: #### C CAIN ####[facility] Oqznhoknmh6261 [place] [address]Dr. Shahbaz Rogel METAMYELOCYTE % Normal [facility] Comment on above: Performed By: #### C CAIN ####[facility] Oqysppdzkg3675 [place] [address]Dr. Shahbaz Rogel MONOM# 0.31 103/ul Normal 0.30-0.80 [facility] Comment on above: Performed By: #### C CAIN ####[facility] Bslnvnckae[address] [place], [place] [address]Dr. Shahbaz Rogel MONOM% 11.0 % Normal 1.7-12.0 [facility] Comment on above: Performed By: #### C CAIN ####[facility] Izhymtiief7[address] [place] [address]Dr. Shahbaz Rogel MPV 9.5 fL Normal 9.5-13.5 [facility] Comment on above: Performed By: #### C CAIN ####[facility] Wsbereeovf4116 [place] [address]Dr. Shahbaz Rogel MYELOCYTE # Normal [facility] Comment on above: Performed By: #### C CAIN ####[facility] Nlekruhyrb6431 [place], [place] [address]Ww. Shahbaz Rogel MYELOCYTE % Normal [facility] Comment on above: Performed By: #### C CAIN ####[facility] Vozlaixdcv1092 [place] [address]Dr. Shahbaz Rogel NRBC Normal [facility] Comment on above: Performed By: #### C CAIN ####[facility] Xqbhxxslcv4660 [place] [address]Dr. Shahbaz Rogel PLT 197 103/ul Normal 150-450 [facility] Comment on above: Performed By: #### C CAIN ####[facility] Mqbgnzpifv0613 [place] [address]Dr. Shahbaz Rogel RBC 5.04 106/ul Normal 4.20-5.40 [facility] Comment on above: Performed By: #### C CAIN ####[facility] Edibmomevr1471 [place] [address]Dr. Shahbaz Rogel RDW 13.2 % Normal 11.0-15.0 [facility] Comment on above: Performed By: #### C CAIN ####[facility] Gbmvxqoojf5379 [place] [address]Dr. Shahbaz Rogel SEG # 1.82 103/ul Normal 1.40-6.50 [facility] Comment on above: Performed By: #### C CAIN ####[facility] Uevgibgsow6634 [place] [address]Dr. Shahbaz Rogel SEG % 65.0 % Normal 43.0-75.0 [facility] Comment on above: Performed By: #### C CAIN ####[facility] Gnkiltytmv7590 [place] [address]Dr. Shahbaz Rogel WBC 2.8 103/ul Critically low 4.0-11.0 [facility] Comment on above: Performed By: #### C CAIN ####[facility] Rgttbrztkp0056 [place] [phone]. Shahbaz Rogel [facility]on SARS-CoV-2 (COVID-19) RNA PAVAN+probe Ql (Unsp spec) Not detected Normal NOT DETECTED [facility] Comment on above: Result Comment: [...] for this test is supported by the [employer] and Human Service's declaration that [...] be used). Performed By: #### C VDTBH ####[facility] Inwbdexolf[address] [place], [place] [address]Dr. Shahbaz Rogel D-DIMERon 01-02-2023 D-DIMER 0.38 mg/L FEU Normal <=0.59 [facility] Comment on above: Performed By: #### D DIM ####[facility] [address]cvwndqty[address] [place], [place] [address]Dr. Shahbaz Rogel D-DIMER COMMENTS SEE BELOW Normal [facility] Comment on above: Result Comment: [...] generalized hospitalization. Performed By: #### D DIM ####[facility] Bnqiwbuwla[address] [place], [place] [address]DrChen Rogel LACTATE/LACTIC ACIDon 2022 Lactate [Moles/Vol] 2.1 mmol/L Critically high 0.4-2.0 [facility] Comment on above: Performed By: #### L ACT ####[facility] Ujywudzdig[address] [place], [place] [address]Dr. Shahbaz Rogel PROF CHEM 8 (BAS METB)on Anion gap [Moles/Vol] 14.3 mmol/L Normal [facility] Comment on above: Performed By: #### C EZEKIEL, BMP ####[facility] Oqhosjbwjn[address] [place], [place] [address]Dr. Shahbaz Rogel Calcium [Mass/Vol] 9.0 mg/dL Normal 8.5-10.1 [facility] Comment on above: Performed By: #### C EZEKIEL, BMP ####[facility] [address] [place], [place] [address]Dr. Shahbaz Rogel Chloride [Moles/Vol] 102 mmol/L Normal 98-107 [facility] Comment on above: Performed By: #### C EZEKIEL, BMP ####[facility] [address] [place], [place] [address]Dr. Shahbaz Rogel CO2 [Moles/Vol] 25.5 mmol/L Normal 21.0-32.0 [facility] Comment on above: Performed By: #### C EZEKIEL, BMP ####[facility] [address] [place], [place] [address]Dr. Shahbaz Rogel Creatinine [Mass/Vol] 1.01 mg/dL Normal 0.55-1.02 [facility] Comment on above: Performed By: #### C EZEKIEL, BMP ####[facility] [address]ndip[address] [place], [place] [address]Dr. Shahbaz Rogel EGFR-AF CITIZEN [place] >60 Normal >=60 [facility] Comment on above: Performed By: #### C EZEKIEL, BMP ####[facility] Filgxkdkbr[address] [place], [place] [address]Dr. Shahbaz Rogel EGFR-NON AF CITIZEN OF [place] 56 mL/min/1.73m2 Critically low >=60 [facility] Comment on above: Performed By: #### C EZEKIEL, BMP ####[facility] [address] [place] [address]Dr. Shahbaz Rogel Glucose [Mass/Vol] 105 mg/dL Normal 74-106 [facility] Comment on above: Performed By: #### C EZEKIEL, BMP ####[facility] [address] [place] [address]Dr. Shahbaz Rogel Potassium [Moles/Vol] 3.8 mmol/L Normal 3.5-5.1 [facility] Comment on above: Performed By: #### Cheri FALCON, BMP ####[facility] [address] [place] [address]Dr. Shahbaz Rogel Sodium [Moles/Vol] 138 mmol/L Normal 136-145 [facility] Comment on above: Performed By: #### Cheri FALCON, BMP ####[facility] Mr[address]zgsiib[address] [place], [place] [address]Dr. Shahbaz Rogel Urea nitrogen [Mass/Vol] 9.0 mg/dL Normal 7.0-18.0 [facility] Comment on above: Performed By: #### C EZEKIEL, BMP ####[facility] Ydsqomes[address] [place], [place] [address]Dr. Shahbaz Rogel Urea nitrogen/Creatinine [Mass ratio] 8.9 mg/mg Normal [facility] Comment on above: Performed By: #### Cheri FALCON, BMP ####[facility] Locpfqwotm[address] [place], [place] [address]Dr. Shahbaz Juan F XR CHEST 1 Von 01-02-2023 XR CHEST 1 V Normal [facility] INSULINon 11-02-2022 Insulin 6.0 uIU/mL Normal 2.6-24.9 [facility] Comment on above: Performed By: #### I NSULIN ####[facility] X[address]trusqsux[address] [place], [place] [address]Dr. Shahbaz Juan F CBC AUTO DIFFon 11-01-2022 BASO # 0.0 103/ul Normal 0.0-0.1 [facility] Comment on above: Performed By: #### C BC ####[facility] Jjqvlawmce[address] [place], [place] [address]Dr. Shahbaz Rogel Basophils/100 WBC (Bld) 0.5 % Normal 0.2-2.0 [facility] Comment on above: Performed By: #### C BC ####[facility] Cr[address]qrjye[address] [place], [place] [address]Dr. Shahbaz Rogel EO # 0.2 103/ul Normal 0.0-0.7 [facility] Comment on above: Performed By: #### C BC ####[facility] [address] [place], [place] [address]Dr. Shahbaz Rogel Eosinophils/100 WBC (Bld) 5.2 % Normal 0.9-7.0 [facility] Comment on above: Performed By: #### C BC ####[facility] Qcyozmcjbd[address] [place], [place] [address]Dr. Shahbaz Rogel Erythrocyte distribution width (RBC) [Ratio] 12.7 % Normal 11.0-15.0 [facility] Comment on above: Performed By: #### C BC ####[facility] Ljzdjbizrh[address] [place], [place] [address]Dr. Shahbaz Rogel Hematocrit (Bld) [Volume fraction] 46.4 % Normal 36.0-48.0 [facility] Comment on above: Performed By: #### C BC ####[facility] Buyqkgoary[address] [place], [place] [address]Dr. Shahbaz Rogel Hemoglobin (Bld) [Mass/Vol] 14.9 g/dL Normal 12.0-16.0 [facility] Comment on above: Performed By: #### C BC ####[facility] B[address] [place], [place] [address]Dr. Shahbaz Rogel IG # 0.00 10e3/ul Normal 0.00-0.03 [facility] Comment on above: Performed By: #### C BC ####[facility] [address]of[address] [place], [place] [address]Dr. Shahbaz Rogel IG % 0.0 % Normal 0.0-0.5 [facility] Comment on above: Performed By: #### C BC ####[facility] [address]sp[address] [place] [address]Dr. Shahbaz Juan F LYMPH # 1.1 103/ul Critically low 1.2-3.8 [facility] Comment on above: Performed By: #### C BC ####[facility] [address] [place] [address]Dr. Lilajarrod Rogel Lymphocytes/100 WBC (Bld) 25.5 % Normal 20.5-60.0 [facility] Comment on above: Performed By: #### C BC ####[facility] [address]woop[address] [place], [place] [address]Dr. Lilajarrod Rogel MANUAL DIFF REQ NO Normal [facility] Comment on above: Performed By: #### C BC ####[facility] [address] [place] [address]Dr. Shahbaz Jua nF MCH (RBC) [Entitic mass] 27.8 pg Normal 26.7-34.0 [facility] Comment on above: Performed By: #### C BC ####[facility] [address]cocqs[address] [place], [place] [address]Dr. Shahbaz Juan F MCHC (RBC) [Mass/Vol] 32.1 g/dL Normal 29.9-35.2 [facility] Comment on above: Performed By: #### C BC ####[facility] [address] [place], [place] [address]Dr. Shahbaz Rogel MCV (RBC) [Entitic vol] 86.6 fL Normal 81.0-99.0 [facility] Comment on above: Performed By: #### C BC ####[facility] [address] [place], [place] [address]Dr. Shahbaz Rogel MONO # 0.2 103/ul Critically low 0.3-0.8 [facility] Comment on above: Performed By: #### C BC ####[facility] Bewlonxpox[address] [place], [place] [address]Dr. Lilajarrod Rogel Monocytes/100 WBC (Bld) 5.4 % Normal 1.7-12.0 [facility] Comment on above: Performed By: #### C BC ####[facility] [address] [place], [place] [address]Dr. Shahbaz Rogel NEUT # 2.7 103/ul Normal 1.4-6.5 [facility] Comment on above: Performed By: #### C BC ####[facility] [address] [place] [id number]. Shahbaz Rogel Neutrophils/100 WBC (Bld) 63.4 % Normal 43.0-75.0 [facility] Comment on above: Performed By: #### C BC ####[facility] [address] [place] [address]Dr. Shahbaz Rogel Platelet mean volume (Bld) [Entitic vol] 9.4 fL Critically low 9.5-13.5 [facility] Comment on above: Performed By: #### C BC ####[facility] [address] [place] [address]Dr. Shahbaz Rogel PLT 216 103/ul Normal 150-450 [facility] Comment on above: Performed By: #### C BC ####[facility] [address] [place] [address]Dr. Shahbaz Rogel RBC 5.36 106/ul Normal 4.20-5.40 [facility] Comment on above: Performed By: #### C BC ####[facility] [address] [place] [address]Dr. Shahbaz Rogel WBC 4.2 103/ul Normal 4.0-11.0 [facility] Comment on above: Performed By: #### C BC ####[facility] [address] [place] [id number]. Shahbaz Rogel FREE THYROXINE INDEX T7on FTI 2.92 Normal 1.30-4.50 [facility] Comment on above: Performed By: #### C MP, LIPID, T7, TSH ####[facility] [address] [place] [address]Dr. Shahbaz Rogel T3U 37.0 % Normal 30.0-39.0 [facility] Comment on above: Performed By: #### C MP, LIPID, T7, TSH ####[facility] [address] [place] [address]Dr. Shahbaz Rogel T4 [Mass/Vol] 7.90 ug/dL Normal 4.80-13.90 [facility] Comment on above: Performed By: #### C MP, LIPID, T7, TSH ####[facility] [address] [place] [address]Dr. Shahbaz Rogel GLYCOHEMOGLOBIN A1Con 2022 ADA RECOMMENDATION SEE BELOW Normal [facility] Comment on above: Result Comment: ADA RECOMMENDED LIMIT 4.0 - 6.0 ADA THERAPEUTIC TARGET < 7.0 ACTION SUGGESTED > 7.0 Performed By: #### A 1C ####[facility] [address] [place], [place] [address]Dr. Shahbaz Rogel Glucose [Mass/Vol] 120 mg/dL Normal [facility] Comment on above: Performed By: #### A 1C ####[facility] Wqfnfwjc[address] [place], [place] [address]Dr. Shahbaz Rogel HbA1c (Bld) [Mass fraction] 5.8 % Normal 4.5-6.2 [facility] Comment on above: Performed By: #### A 1C ####[facility] [address] [place], [place] [address]Dr. Shahbaz Rogel IRONon 11-01-2022 Iron [Mass/Vol] 54.0 ug/dL Normal 50.0-170.0 [facility] Comment on above: Performed By: #### I GRIS ####[facility] [address] [place], [place] [address]Dr. Shahbaz Rogel LIPID PROFILEon 11-01-2022 CHOL-HDL RATIO NORM SEE BELOW Normal [facility] Comment on above: Result Comment: 3.3 - 4.4 LOW RISK 4.4 - 7.1 AVERAGE RISK 7.1 - 11.0 MODERATE RISK >11.0 HIGH RISK Performed By: #### C MP, LIPID, T7, TSH ####[facility] [address] [place], [place] [address]Dr. Shahbaz Rogel Cholesterol [Mass/Vol] 203 mg/dL Critically high <=200 [facility] Comment on above: Performed By: #### C MP, LIPID, T7, TSH ####[facility] [address] [place] [id number]. Shahbaz Rogel Cholesterol in HDL [Mass/Vol] 42 mg/dL Normal 40-60 [facility] Comment on above: Performed By: #### C MP, LIPID, T7, TSH ####[facility] [address] [place] [id number]. Shahbaz Rogel Cholesterol in LDL [Mass/Vol] 121.4 mg/dL Normal [facility] Comment on above: Performed By: #### C MP, LIPID, T7, TSH ####[facility] [address] [place] [id number]. Shahbaz Rogel Cholesterol.total/Chol esterol in HDL [Mass ratio] 4.8 {ratio} Normal [facility] Comment on above: Performed By: #### C MP, LIPID, T7, TSH ####[facility] [address] [place] [id number]. Shahbaz Rogel HDL NORMAL > or = 60 mg/dl - LO W CARDIOVASCULAR RISK <40 mg/dl - HIGH CARDIOVASCULAR RISK Normal [facility] Comment on above: Performed By: #### C MP, LIPID, T7, TSH ####[facility] [address] [place] [id number]. Shahbaz Rogel LDL CALC NORMAL SEE BELOW Normal [facility] Comment on above: Result Comment: <100 mg/dl OPTIMAL 100 - 129 mg/dl NEAR OR ABOVE OPTIMAL 130 - 159 mg/dl BORDERLINE HIGH 160 - 189 mg/dl HIGH >190 mg/dl VERY HIGH Performed By: #### C MP, LIPID, T7, TSH ####[facility] [address] [place] [id number]. Shahbaz Rogel Triglyceride [Mass/Vol] 198 mg/dL Critically high <=150 [facility] Comment on above: Performed By: #### C MP, LIPID, T7, TSH ####[facility] [address] [place] [id number]. Shahbaz Rogel VLDL CALC 39.6 mg/dL Normal [facility] Comment on above: Performed By: #### C MP, LIPID, T7, TSH ####[facility] [address] [place] [address]Dr. Shahbaz Rogel PROF 14(COMP METB)on 023 Albumin [Mass/Vol] 4.1 g/dL Normal 3.4-5.0 [facility] Comment on above: Performed By: #### C MP, LIPID, T7, TSH ####[facility] [address] [place] [address]Dr. Shahbaz Rogel Albumin/Globulin [Mass ratio] 1.0 {ratio} Normal [facility] Comment on above: Performed By: #### C MP, LIPID, T7, TSH ####[facility] [address] [place] [address]Dr. Shahbaz Rogel ALP [Catalytic activity/Vol] 126 U/L Critically high 46-116 [facility] Comment on above: Performed By: #### C MP, LIPID, T7, TSH ####[facility] [address] [place] [address]Dr. Shahbaz Rogel ALT [Catalytic activity/Vol] 30 U/L Normal 14-59 [facility] Comment on above: Performed By: #### C MP, LIPID, T7, TSH ####[facility] [address]uzu[address] [place] [address]Dr. Shahbaz Rogel Anion gap [Moles/Vol] 12.3 mmol/L Normal [facility] Comment on above: Performed By: #### C MP, LIPID, T7, TSH ####[facility] [address] [place] [address]Dr. Shahbaz Rogel AST [Catalytic activity/Vol] 25 U/L Normal 15-37 [facility] Comment on above: Performed By: #### C MP, LIPID, T7, TSH ####[facility] [address] [place] [address]Dr. Shahbaz Rogel Bilirubin [Mass/Vol] 0.5 mg/dL Normal 0.2-1.0 [facility] Comment on above: Performed By: #### C MP, LIPID, T7, TSH ####[facility] [address] [place] [address]Dr. Shahbaz Rogel Calcium [Mass/Vol] 9.4 mg/dL Normal 8.5-10.1 [facility] Comment on above: Performed By: #### C MP, LIPID, T7, TSH ####[facility] [address] [place] [address]Dr. Shahbaz Rogel Chloride [Moles/Vol] 104 mmol/L Normal 98-107 [facility] Comment on above: Performed By: #### C MP, LIPID, T7, TSH ####[facility] [address] [place] [address]Dr. Shahbaz Rogel CO2 [Moles/Vol] 29.6 mmol/L Normal 21.0-32.0 [facility] Comment on above: Performed By: #### C MP, LIPID, T7, TSH ####[facility] [address] [place] [address]Dr. Shahbaz Rogel Creatinine [Mass/Vol] 0.91 mg/dL Normal 0.55-1.02 [facility] Comment on above: Performed By: #### C MP, LIPID, T7, TSH ####[facility] [address] [place] [address]Dr. Shahbaz Rogel EGFR-AF [place] >60 Normal >=60 [facility] Comment on above: Performed By: #### C MP, LIPID, T7, TSH ####[facility] [address] [place] [address]Dr. Shahbaz Rogel EGFR-NON AF [place]IZ[place] >60 Normal >=60 [facility] Comment on above: Performed By: #### C MP, LIPID, T7, TSH ####[facility] [address] [place] [address]Dr. Shahbaz Rogel Globulin (S) [Mass/Vol] 4.0 g/dL Normal [facility] Comment on above: Performed By: #### C MP, LIPID, T7, TSH ####[facility] [address] [place] [address]Dr. Shahbaz Rogel Glucose [Mass/Vol] 85 mg/dL Normal 74-106 [facility] Comment on above: Performed By: #### C MP, LIPID, T7, TSH ####[facility] [address] [place] [address]Dr. Shahbaz Rogel Potassium [Moles/Vol] 3.9 mmol/L Normal 3.5-5.1 [facility] Comment on above: Performed By: #### C MP, LIPID, T7, TSH ####[facility] [address] [place] [address]Dr. Shahbaz Rogel Protein [Mass/Vol] 8.1 g/dL Normal 6.4-8.2 [facility] Comment on above: Performed By: #### C MP, LIPID, T7, TSH ####[facility] [address] [place] [address]Dr. Shahbaz Rogel Sodium [Moles/Vol] 142 mmol/L Normal 136-145 [facility] Comment on above: Performed By: #### C MP, LIPID, T7, TSH ####[facility] [address] [place] [address]Dr. Shahbaz Rogel Urea nitrogen [Mass/Vol] 9.0 mg/dL Normal 7.0-18.0 [facility] Comment on above: Performed By: #### C MP, LIPID, T7, TSH ####[facility] [address] [place] [address]Dr. Shahbaz Rogel Urea nitrogen/Creatinine [Mass ratio] 9.9 mg/mg Normal [facility] Comment on above: Performed By: #### C MP, LIPID, T7, TSH ####[facility] [address] [place] [address]Dr. hSahbaz Rogel TSHon 11-01-2022 TSH 0.045 uIU/mL Critically low 0.358-3.74 0 [facility] Comment on above: Performed By: #### C MP, LIPID, T7, TSH ####[facility] [address] [place] [address]Dr. Shahbaz Rogel XR HUMERUS LT MIN 2Von 10-01 XR HUMERUS LT MIN 2V Normal [facility] XR LSPINE 2_3 VIEWSon 2021 XR LSPINE 2_3 VIEWS Normal [facility] XR CHEST 1 Von 08-25-2022 XR CHEST 1 V Normal [facility] ACID FAST SMEAR AND CXon Acid Fast Culture Negative Normal [facility] Comment on above: Result Comment: No a ninfa fast bacilli isolated after 6 weeks. Performed By: #### A FB ####[facility] [address] [place], [place] [address]El. Shahbaz Rogel Acid Fast Smear Negative Normal [facility] Comment on above: Performed By: #### A FB ####[facility] [address] [place], [place] [address]Uv. Shahbaz Rogel [employer] Specimen Processing Concentration Normal [facility] Comment on above: Performed By: #### A FB ####[facility] [address] [place] [address]Dr. Shahbaz Rogel Bacteria identified Anaer cx Nom (Unsp spec)Ordered By: Rodolfo Harley on 08-13-2022 Anaerobic microbial culture No Anaerobes Isolated 3 Days [facility] Basophils Auto (Bld) [#/Vol] Ordered By: Rodolfo Harley on 08-12-2022 Basophils (Bld) [#/Vol] 0.0 10*3/uL 0.0-0.2 [facility] Basophils/100 WBC Auto (Bld) Ordered By: Rodolfo Harley on 08-12-2022 Basophils/100 WBC (Bld) 0.4 % . [facility] Creatinine and Glomerular fi ltration rate.predicted panel (S/P/Bld)Ordered By: Rodolfo Harley on 08-12-2022 Creatinine [Mass/Vol] 0.74 mg/dL 0.44-1.03 [facility] Eosinophils Auto (Bld) [#/Vo l]Ordered By: Rodolfo Harley on 08-12-2022 Eosinophils (Bld) [#/Vol] 0.0 10*3/uL 0.0-0.45 [facility] Eosinophils/100 WBC Auto (Bl d)Ordered By: Rodolfo Harley on 08-12-2022 Eosinophils/100 WBC (Bld) 0.0 % . [facility] Erythrocyte distribution wid th Auto (RBC) [Ratio]Ordered By: Rodolfo Harley on 08-12-2022 Erythrocyte distribution width (RBC) [Ratio] 14.2 % 11.9-15.3 [facility] Estimated glomerular filtrat ion rate (GFR) non- AmericanOrdered By: Rodolfo Harley on 08-12-2022 GFR/1.73 sq M.predicted among non-blacks MDRD (S/P/Bld) [Vol rate/Area] > 60 mL/Min [facility] Hematocrit Auto (Bld) [Volum e fraction]Ordered By: Rodolfo Harley on 08-12-2022 Hematocrit (Bld) [Volume fraction] 38.0 % 34.0-46.4 [facility] Hemoglobin [Mass/volume] in BloodOrdered By: Rodolfo Harley 08-12-2022 Hemoglobin (Bld) [Mass/Vol] 12.5 g/dL 11.8-15.4 [facility] Laboratory - Hematology and Cell countsOrdered By: Rodolfo Harley on 08-12-2022 Nucleated RBC/100 WBC (Bld) [Ratio] 0.1 % 0-0.5 [facility] Leukocytes [#/volume] in Blo od by Automated countOrdered By: Rodolfo Harley on 08-12-2022 WBC (Bld) [#/Vol] 5.8 10*3/uL 4.5-11.0 [facility] Lymphocytes Auto (Bld) [#/Vo l]Ordered By: Rodolfo Harley on 08-12-2022 Lymphocytes (Bld) [#/Vol] 0.7 10*3/uL 1.00-4.8 [facility] Lymphocytes/100 WBC Auto (Bl d)Ordered By: Rodolfo Harley on 08-12-2022 Lymphocytes/100 WBC (Bld) 11.4 % . [facility] MCH Auto (RBC) [Entitic mass ]Ordered By: Rodolfo Harley on 08-12-2022 MCH (RBC) [Entitic mass] 28.1 pg 24.7-34.3 [facility] MCHC Auto (RBC) [Mass/Vol]Or dered By: Rodolfo Harley on 08-12-2022 MCHC (RBC) [Mass/Vol] 32.9 g/dL 32.0-35.0 [facility] MCV Auto (RBC) [Entitic vol] Ordered By: Rodolfo Harley on 08-12-2022 MCV (RBC) [Entitic vol] 85.4 fL 80-100 [facility] Monocytes Auto (Bld) [#/Vol] Ordered By: Rodolfo Harley on 08-12-2022 Monocytes (Bld) [#/Vol] 0.3 10*3/uL 0.0-0.8 [facility] Monocytes/100 WBC Auto (Bld) Ordered By: Rodolfo Harley on 08-12-2022 Monocytes/100 WBC (Bld) 4.8 % . [facility] Neutrophils Auto (Bld) [#/Vo l]Ordered By: Rodolfo Harley on 08-12-2022 Neutrophils (Bld) [#/Vol] 4.8 10*3/uL 1.8-7.7 [facility] Neutrophils/100 WBC Auto (Bl d)Ordered By: Rodolfo Harley on 08-12-2022 Neutrophils/100 WBC (Bld) 83.4 % . [facility] No Panel InformationOrdered By: Rodolfo Harley on 08-12-2022 Estimated GFR () > 60 mL/Min [facility] Comment on above: GFR estimated refere nce range: According to KDOQI guidelines, <60 ml/min/1.73m2 is sufficient to diagnose a patient with chronic kidney disease. Pharmacy Creatinine Clearance (Chem 59.45 [facility] Platelet mean volume Auto (B ld) [Entitic vol]Ordered By: Rodolfo Harley on 08-12-2022 Platelet mean volume (Bld) [Entitic vol] 7.9 fL 6.3-10.7 [facility] Platelets Auto (Bld) [#/Vol] Ordered By: Rodolfo Harley on 08-12-2022 Platelets (Bld) [#/Vol] 196 10*3/uL 150-450 [facility] RBC Auto (Bld) [#/Vol]Ordere d By: Rodolfo Harley on 08-12-2022 RBC (Bld) [#/Vol] 4.45 10*6/uL 3.60-5.[address] [facility] Serum or plasma anion gap de terminationOrdered By: Rodolfo Harley on 08-12-2022 Anion gap [Moles/Vol] 7.5 mmol/L 6.0-15.0 [facility] Serum or plasma calcium dagoberto urement (mass/volume)Ordered By: Rodolfo Harley on 08-12-2022 Calcium [Mass/Vol] 8.7 mg/dL 8.2-10.2 [facility] Serum or plasma chloride anahy surement (moles/volume)Ordered By: Rodolfo Harley on 08-12-2022 Chloride [Moles/Vol] 108 mmol/L 95-114 [facility] Serum or plasma glucose dagoberto urement (mass/volume)Ordered By: Rodolfo Harley on 08-12-2022 Glucose [Mass/Vol] 133 mg/dL 70-100 [facility] Comment on above: ADA recommended refe rence rangeRandom Glucose Reference Range is dependent on time and content of last meal. Glucose of more than 200 mg/dL in a nonstressed, ambulatory subject supports the diagnosis of Diabetes Mellitus. Serum or plasma potassium me asurement (moles/volume)Ordered By: Rodolfo Harley on 08-12-2022 Potassium [Moles/Vol] 3.7 mmol/L 3.5-5.1 [facility] Serum or plasma sodium measu rement (moles/volume)Ordered By: Rodolfo Harley on 08-12-2022 Sodium [Moles/Vol] 139 mmol/L 136-146 [facility] Serum or plasma total carbon dioxide measurement (moles/volume)Ordered By: Rodolfo Harley on 08-12-2022 CO2 [Moles/Vol] 27.2 mmol/L 22.0-30.0 [facility] Serum or plasma urea nitroge n measurement (mass/volume)Ordered By: Rodolfo Harley on 08-12-2022 Urea nitrogen [Mass/Vol] 14 mg/dL 9-23 [facility] ABO and Rh group post transf usion reaction Nom (Bld)Ordered By: Rodolfo Harley on 08-10-2022 Microscopic observation Gram stain Nom (Unsp spec) [facility] AF[employer] cultureOrdered By: Sissy Harley on 08-10-2022 Mycobacterium sp identified Org specific cx Nom (Unsp spec) [facility] AF[employer] smearOrdered By: Rodolfo Harley on 08-10-2022 Microscopic observation Smear Nom (Unsp spec) [facility] Aerobic cultureOrdered By: Margie Harley on 08-10-2022 Bacteria identified Aer cx Nom (Unsp spec) No Growth 2 Days [facility] Anaerobic cultureOrdered By: Rodolfo Harley on 08-10-2022 Bacteria identified Anaer cx Nom (Unsp spec) No Anaerobes Isolated 3 Days [facility] Arterial blood standard base excess determination by calculationOrdered By: Rodolfo Harley on 08-10-2022 Base excess standard Calc (BldA) [Moles/Vol] 5 mmol/L -2-3 [facility] Blood carbon dioxide, total measurement by calculation (moles/volume)Ordered By: Rodolfo Harley on 08-10-2022 CO2 Calc (Bld) [Moles/Vol] 30 mmol/L 23-[address] [facility] [address] biopsyOrdered By: Rodolfo Harley on 08-10-2022 Hematocrit (Bld) [Volume fraction] 40.0 % 38.0-51.0 [facility] Fungal cultureOrdered By: Rolanda Harley on 08-10-2022 Fungus identified Cx Nom (Unsp spec) [facility] Glucose Glucometer (BldC) [M ass/Vol]Ordered By: Rodolfo Harley on 08-10-2022 Glucose [Mass/Vol] 126 mg/dL 70-105 [facility] Gram stain for investigation of transfusion reactionOrdered By: Rodolfo Harley on 08-10-2022 Microscopic observation Gram stain Nom (Unsp spec) [facility] Hemoglobin Calc (Bld) [Mass/ Vol]Ordered By: Rodolfo Harley on 08-10-2022 Hemoglobin (Bld) [Mass/Vol] 13.6 g/dL 12.0-17.0 [facility] Monocyte %Ordered By: Jean Harley on 08-10-2022 Monocyte % 39.9 mm[Hg] 35-51 [facility] Monocyte % 45 mm[Hg] 80-105 [facility] No Panel InformationOrdered By: Rodolfo Harley on 08-10-2022 Chlamydia psittaci Antibodies <1:10 Neg:<1:10 [facility] Comment on above: This test was develo ped and its performance characteristicsdetermined by [facility]. It has not been cleared or approvedby the Food and Drug Administration. The FDA hasdetermined that such clearance or approval is notnecessary.Performed at: [address] [id number] Director: Shelly Vargas MD, Phone: [phone] Potassium (Bld) [Moles/Vol]O rdered By: Rodolfo Harely on 08-10-2022 Potassium [Moles/Vol] 3.8 mmol/L 3.5-4.9 [facility] Sodium (Bld) [Moles/Vol]Orde red By: Rodolfo Harley on 08-10-2022 Sodium [Moles/Vol] 141 mmol/L 138-146 [facility] Whole blood bicarbonate dagoberto urementOrdered By: Rodolfo Harley on 08-10-2022 HCO3 (Bld) [Moles/Vol] 29.1 mmol/L 22.0-28.0 [facility] Whole blood ionized calcium measurement (moles/volume)Ordered By: Rodolfo Harley on 08-10-2022 Calcium.ionized (Bld) [Moles/Vol] 1280 mmol/L 1.12-1.32 [facility] Whole blood oxygen saturatio n measurementOrdered By: Rodolfo Harley on 08-10-2022 Oxygen saturation in Blood 84 % 95-98 [facility] Comment on above: Reference ranges ref lect baseline specimens only Whole blood pHOrdered By: Rolanda Harley on 08-10-2022 pH (Bld) 7.470 Units 7.31-7.45 [facility] Urine culture routineOrdered By: Rodolfo Harley on 08-07-2022 Bacteria identified Cx Nom (U) 2 Days [facility] Activated partial thrombopla stin time (aPTT) in platelet poor plasma by coagulation aOrdered By: Rodolfo Harley on 08-05-2022 aPTT Coag (PPP) [Time] 35.9 s 25.1-36.5 [facility] Basophils Auto (Bld) [#/Vol] Ordered By: Rodolfo Harley on 08-05-2022 Basophils (Bld) [#/Vol] 0.0 10*3/uL 0.0-0.2 [facility] Basophils/100 WBC Auto (Bld) Ordered By: Rodolfo Harley on 08-05-2022 Basophils/100 WBC (Bld) 0.5 % . [facility] Body fluid albumin measureme nt (mass/volume)Ordered By: Rodolfo Harley on 08-05-2022 Albumin (Body fld) [Mass/Vol] 3.8 g/dL 3.2-5.5 [facility] COVID-19 Positive/NegativeOr dered By: Rodolfo Harley on 08-05-2022 SARS-CoV-2 (COVID-19) N gene PAVAN+probe Ql (Resp) Negative Negative [facility] Comment on above: Testing for SARS-CoV -2 by RT-PCRThis test was developed and its performance characteristics determined by [employer] and validated at the [facility]. This test has not been FDA cleared [...] on 08-05-2022 Creatinine [Mass/Vol] 0.97 mg/dL 0.44-1.03 [facility] Eosinophils Auto (Bld) [#/Vo l]Ordered By: Rodolfo Harley on 08-05-2022 Eosinophils (Bld) [#/Vol] 0.2 10*3/uL 0.0-0.45 [facility] Eosinophils/100 WBC Auto (Bl d)Ordered By: Rodolfo Harley on 08-05-2022 Eosinophils/100 WBC (Bld) 4.9 % . [facility] Erythrocyte distribution wid th Auto (RBC) [Ratio]Ordered By: Rodolfo Harley on 08-05-2022 Erythrocyte distribution width (RBC) [Ratio] 14.5 % 11.9-15.3 [facility] Estimated glomerular filtrat ion rate (GFR) non- AmericanOrdered By: Rodolfo Harley on 08-05-2022 GFR/1.73 sq M.predicted among non-blacks MDRD (S/P/Bld) [Vol rate/Area] 59 mL/Min [facility] FUNGAL CULTUREon 08-05-2022 Fungus (Mycology) Culture Final report Abnormal [facility] Comment on above: Performed By: #### C XFUN ####[facility] [address] [place] [address]Dr. Shahbaz Rogel Fungus Stain Final report Normal [facility] Comment on above: Performed By: #### C XFUN ####[facility] [address] [place] [address]Dr. Shahbaz Rogel Result 1 Comment Abnormal [facility] Comment on above: Result Comment: MILADYS/ Calcofluor preparation: no fungus observed. Performed By: #### C XFUN ####[facility] [address] [place] [address]Dr. Shahbaz Rogel Result Comment: Aspe rgillus versicolor Result 2 Penicillium species Abnormal [facility] Comment on above: Performed By: #### C XFUN ####[facility] [address] [place] [address]DrChen Rogel Globulin Calc (S) [Mass/Vol] Ordered By: Rodolfo Harley on 08-05-2022 Globulin (S) [Mass/Vol] 2.9 g/dL [facility] Hematocrit Auto (Bld) [Volum e fraction]Ordered By: Rodolfo Harley on 08-05-2022 Hematocrit (Bld) [Volume fraction] 43.3 % 34.0-46.4 [facility] Hemoglobin [Mass/volume] in BloodOrdered By: Rodolfo Harley on 08-05-2022 Hemoglobin (Bld) [Mass/Vol] 14.3 g/dL 11.8-15.4 [facility] Laboratory - CoagulationOrde red By: Rodolfo Harley on 08-05-2022 PT Coag (PPP) [Time] 12.4 s 9.0-12.9 [facility] - Hematology and Cell countsOrdered By: Rodolfo Harley on 08-05-2022 Nucleated RBC/100 WBC (Bld) [Ratio] 0.0 % 0-0.5 [facility] Leukocytes [#/volume] in Blo od by Automated countOrdered By: Roodlfo Harley on 08-05-2022 WBC (Bld) [#/Vol] 3.4 10*3/uL 4.5-11.0 [facility] Lymphocytes Auto (Bld) [#/Vo l]Ordered By: Rodolfo Harley on 08-05-2022 Lymphocytes (Bld) [#/Vol] 0.9 10*3/uL 1.00-4.8 [facility] Lymphocytes/100 WBC Auto (Bl d)Ordered By: Rodolfo Harley on 08-05-2022 Lymphocytes/100 WBC (Bld) 27.2 % . [facility] MCH Auto (RBC) [Entitic mass ]Ordered By: Rodolfo Harley on 08-05-2022 MCH (RBC) [Entitic mass] 28.4 pg 24.7-34.3 [facility] MCHC Auto (RBC) [Mass/Vol]Or dered By: Rodolfo Harley on 08-05-2022 MCHC (RBC) [Mass/Vol] 33.1 g/dL 32.0-35.0 [facility] MCV Auto (RBC) [Entitic vol] Ordered By: Rodolfo Harley on 08-05-2022 MCV (RBC) [Entitic vol] 85.9 fL 80-100 [facility] Monocytes Auto (Bld) [#/Vol] Ordered By: Rodolfo Harley on 08-05-2022 Monocytes (Bld) [#/Vol] 0.3 10*3/uL 0.0-0.8 [facility] Monocytes/100 WBC Auto (Bld) Ordered By: Rodolfo Harley on 08-05-2022 Monocytes/100 WBC (Bld) 7.5 % . [facility] Neutrophils Auto (Bld) [#/Vo l]Ordered By: Rodolfo Harley on 08-05-2022 Neutrophils (Bld) [#/Vol] 2.0 10*3/uL 1.8-7.7 [facility] Neutrophils/100 WBC Auto (Bl d)Ordered By: Rodolfo Harley on 08-05-2022 Neutrophils/100 WBC (Bld) 59.9 % . [facility] No Panel InformationOrdered By: Rodolfo Harley on 08-05-2022 Estimated GFR () > 60 mL/Min [facility] Comment on above: GFR estimated refere nce range: According to KDOQI guidelines, <60 ml/min/1.73m2 is sufficient to diagnose a patient with chronic kidney disease. Pharmacy Creatinine Clearance (Chem N/A [facility] Platelet mean volume Auto (B ld) [Entitic vol]Ordered By: Rodolfo Harley on 08-05-2022 Platelet mean volume (Bld) [Entitic vol] 8.1 fL 6.3-10.7 [facility] Platelet poor plasma interna tional normalized ratio (INR) by coagulation assay (relatOrdered By: Rodolfo Harley on 08-05-2022 INR Coag (PPP) [Relative time] 1.1 {INR} [facility] Comment on above: INR Therapeutic Rang e [...] 08-05-2022 Platelets (Bld) [#/Vol] 243 10*3/uL 150-450 [facility] Protein [Mass/volume] in Ser um or PlasmaOrdered By: Rodolfo Harley on 08-05-2022 Protein [Mass/Vol] 6.7 g/dL 6.1-7.9 [facility] RBC Auto (Bld) [#/Vol]Ordere d By: Rodolfo Harley on 08-05-2022 RBC (Bld) [#/Vol] 5.04 10*6/uL 3.60-5.[address] [facility] Serum or plasma alanine snyder otransferase measurement without P-5'-P (enzymatic activiOrdered By: Rodolfo Harley on 08-05-2022 ALT No additional P-5'-P [Catalytic activity/Vol] 14 U/L 10-60 [facility] Serum or plasma albumin/glob ulin mass ratioOrdered By: Rodolfo Harley on 08-05-2022 Albumin/Globulin [Mass ratio] 1.3 {ratio} [facility] Serum or plasma alkaline sruthi sphatase measurement (enzymatic activity/volume)Ordered By: Rodolfo Harlye on 08-05-2022 ALP [Catalytic activity/Vol] 91 U/L 32-92 [facility] Serum or plasma anion gap de terminationOrdered By: Rodolfo Harley on 08-05-2022 Anion gap [Moles/Vol] 14.3 mmol/L 6.0-15.0 [facility] Serum or plasma aspartate am inotransferase measurement (enzymatic activity/volume)Ordered By: Rodolfo Harley on 08-05-2022 AST [Catalytic activity/Vol] 21 U/L 10-42 [facility] Serum or plasma calcium dagoberto urement (mass/volume)Ordered By: Rodolfo Harley on 08-05-2022 Calcium [Mass/Vol] 9.5 mg/dL 8.2-10.2 [facility] Serum or plasma chloride anhay surement (moles/volume)Ordered By: Rodolfo Harley on 08-05-2022 Chloride [Moles/Vol] 102 mmol/L 95-114 [facility] Serum or plasma glucose dagoberto urement (mass/volume)Ordered By: Rodolfo Harley on 08-05-2022 Glucose [Mass/Vol] 76 mg/dL 70-100 [facility] Comment on above: ADA recommended refe rence rangeRandom Glucose Reference Range is dependent on time and content of last meal. Glucose of more than 200 mg/dL in a nonstressed, ambulatory subject supports the diagnosis of Diabetes Mellitus. Serum or plasma potassium me asurement (moles/volume)Ordered By: Rodolfo Harley on 08-05-2022 Potassium [Moles/Vol] 3.8 mmol/L 3.5-5.1 [facility] Serum or plasma sodium measu rement (moles/volume)Ordered By: Rodolfo Harley on 08-05-2022 Sodium [Moles/Vol] 138 mmol/L 136-146 [facility] Serum or plasma total biliru bin measurement (mass/volume)Ordered By: Rodolfo Harley on 08-05-2022 Bilirubin [Mass/Vol] 0.7 mg/dL 0.3-1.2 [facility] Serum or plasma total carbon dioxide measurement (moles/volume)Ordered By: Rodolfo Harley on 08-05-2022 CO2 [Moles/Vol] 25.5 mmol/L 22.0-30.0 [facility] Serum or plasma urea nitroge n measurement (mass/volume)Ordered By: Rodolfo Harley on 08-05-2022 Urea nitrogen [Mass/Vol] 12 mg/dL - [facility] Urine culture routineOrdered By: Rodolfo Harley on 08-05-2022 Bacteria identified Cx Nom (U) 2 Days [facility] XR ANKLE LT MIN 3 Von 2021 XR ANKLE LT MIN 3 V Normal [facility] BNPon 07-06-2022 Natriuretic peptide B (Bld) [Mass/Vol] 843.0 pg/mL Normal <=900.0 [facility] Comment on above: Performed By: #### B YELLOW PAGES SPACE SALESPERSON, CRP, CMP ####[facility] [address] [place], [place] [address]SvChen Rogel CBC W MANUAL DIFFon 07-06-20 22 ATYPICAL LYMPH # Normal [facility] Comment on above: Performed By: #### C BCMAN ####[facility] [address] [place] [address]Dr. Shahbaz Rogel ATYPICAL LYMPH % Normal [facility] Comment on above: Performed By: #### C BCMAN ####[facility] [address] [place] [address]Dr. Yilan Rogel BAND # 0.0 103/ul Normal 0.0-0.3 [facility] Comment on above: Performed By: #### C BCMAN ####[facility] [address] [place] [address]Dr. Yilan Rogel BAND % 0 % Normal 0-5 [facility] Comment on above: Performed By: #### C BCMAN ####[facility] [address] [place], [place] [address]Dr. Yijarrod Rogel BASOM # 0.00 103/ul Normal 0.00-0.10 [facility] Comment on above: Performed By: #### C BCBRICE ####[facility] [address] [place], [place] [address]Dr. Shahbaz Rogel BASOM % 0.0 % Critically low 0.2-2.0 [facility] Comment on above: Performed By: #### C BCBRICE ####[facility] [address] [place], [place] [address]Dr. Yilan Rogel BLAST # Normal [facility] Comment on above: Performed By: #### C BCBRICE ####[facility] [address] [place], [place] [address]Dr. Shahbaz Rogel BLAST % Normal [facility] Comment on above: Performed By: #### C BCMAN ####[facility] [address] [place], [place] [address]Dr. Shahbaz Rogel CORRECTED WBC Normal 4.0-11.0 [facility] Comment on above: Performed By: #### C BCMAN ####[facility] [address] [place], [place] [address]Dr. Yijarrod Rogel EOS # 0.00 103/ul Normal 0.00-0.70 [facility] Comment on above: Performed By: #### C BCMAN ####[facility] [address] [place], [place] [id number]. Shahbaz Rogel EOS% 0.0 % Critically low 0.9-7.0 [facility] Comment on above: Performed By: #### C CAIN ####[facility] [address] [place] [id number]. Shahbaz Rogel HCT 40.3 % Normal 36.0-48.0 [facility] Comment on above: Performed By: #### C CAIN ####[facility] [address] [place] [id number]. Shahbaz Rogel HGB 12.7 g/dl Normal 12.0-16.0 [facility] Comment on above: Performed By: #### C CAIN ####[facility] [address] [place] [address]Dr. Shahbaz Rogel LYMPHM # 0.41 103/ul Critically low 1.20-3.80 [facility] Comment on above: Performed By: #### C CAIN ####[facility] [address] [place] [address]Dr. Shahbaz Rogel LYMPHM% 7.0 % Critically low 20.5-60.0 [facility] Comment on above: Performed By: #### Cheri BARLOW ####[facility] [address] [place] [address]Dr. Shahbaz Rogel MCH 28.0 pg Normal 26.7-34.0 [facility] Comment on above: Performed By: #### C CAIN ####[facility] [address] [place] [id number]. Shahbaz Rogel MCHC 31.5 g/dl Normal 29.9-35.2 [facility] Comment on above: Performed By: #### C CAIN ####[facility] [address] [place] [address]Dr. Shahbaz Rogel MCV 89.0 fL Normal 81.0-99.0 [facility] Comment on above: Performed By: #### C CAIN ####[facility] [address] [place], [place] [address]Dr. Shahbaz Rogel METAMYELOCYTE # Normal [facility] Comment on above: Performed By: #### C CAIN ####[facility] [address] [place] [id number]. Shahbaz Rogel METAMYELOCYTE % Normal [facility] Comment on above: Performed By: #### C CAIN ####[facility] [address] [place] [id number]. Shahbaz Rogel MONOM# 0.00 103/ul Critically low 0.30-0.80 [facility] Comment on above: Performed By: #### C CAIN ####[facility] [address] [place] [id number]. Shahbaz Rogel MONOM% 0.0 % Critically low 1.7-12.0 [facility] Comment on above: Performed By: #### C CAIN ####[facility] [address] [place] [id number]. Shahbaz Rogel MPV 9.8 fL Normal 9.5-13.5 [facility] Comment on above: Performed By: #### C CAIN ####[facility] [address] [place] [id number]. Shahbaz Rogel MYELOCYTE # Normal [facility] Comment on above: Performed By: #### C CAIN ####[facility] [address] [place] [id number]. Shahbaz Rogel MYELOCYTE % Normal [facility] Comment on above: Performed By: #### C CAIN ####[facility] [address] [place], [place] [id number]. Shahbaz Rogel NRBC Normal [facility] Comment on above: Performed By: #### C CAIN ####[facility] [address] [place] [id number]. Shahbaz Rogel PLT 187 103/ul Normal 150-450 [facility] Comment on above: Performed By: #### C CAIN ####[facility] [address] [place] [id number]. Shahbaz Rogel RBC 4.53 106/ul Normal 4.20-5.40 [facility] Comment on above: Performed By: #### C CAIN ####[facility] [address] [place] [id number]. Shahbaz Rogel RDW 13.3 % Normal 11.0-15.0 [facility] Comment on above: Performed By: #### C CAIN ####[facility] [address] [place] [id number]. Lilajarrod Rogel SEG # 5.49 103/ul Normal 1.40-6.50 [facility] Comment on above: Performed By: #### C CAIN ####[facility] [address] [place] [id number]. Lilajarrod Juan F SEG % 93.0 % Critically high 43.0-75.0 [facility] Comment on above: Performed By: #### C CAIN ####[facility] [address] [place] [address]Dr. Shahbaz Rogel WBC 5.9 103/ul Normal 4.0-11.0 [facility] Comment on above: Performed By: #### C CAIN ####[facility] [address] [place] [address]Dr. Shahbaz Rogel CRPon 07-06-2022 CRP [Mass/Vol] mg/L Normal <=1.0 [facility] Comment on above: Performed By: #### B YELLOW PAGES SPACE SALESPERSON, CRP, CMP ####[facility] [address] [place] [address]Dr. Shahbaz Rogel PROF 14(COMP METB)on 022 Albumin [Mass/Vol] 3.4 g/dL Normal 3.4-5.0 [facility] Comment on above: Performed By: #### B YELLOW PAGES SPACE SALESPERSON, CRP, CMP ####[facility] [address] [place] [address]Dr. Shahbaz Rogel Albumin/Globulin [Mass ratio] 1.0 {ratio} Normal [facility] Comment on above: Performed By: #### B YELLOW PAGES SPACE SALESPERSON, CRP, CMP ####[facility] [address] [place] [address]Dr. Shahbaz Rogel ALP [Catalytic activity/Vol] 92 U/L Normal 46-116 [facility] Comment on above: Performed By: #### B YELLOW PAGES SPACE SALESPERSON, CRP, CMP ####[facility] [address] [place] [address]Dr. Shahbaz Rogel ALT [Catalytic activity/Vol] 21 U/L Normal 14-59 [facility] Comment on above: Performed By: #### B YELLOW PAGES SPACE SALESPERSON, CRP, CMP ####[facility] [address] [place] [address]Dr. Shahbaz Rogel Anion gap [Moles/Vol] 13.4 mmol/L Normal [facility] Comment on above: Performed By: #### B YELLOW PAGES SPACE SALESPERSON, CRP, CMP ####[facility] [address] [place], [place] [address]Dr. Shahbaz Rogel AST [Catalytic activity/Vol] 16 U/L Normal 15-37 [facility] Comment on above: Performed By: #### B YELLOW PAGES SPACE SALESPERSON, CRP, CMP ####[facility] [address] [place], [place] [address]Dr. Shahbaz Rogel Bilirubin [Mass/Vol] 0.2 mg/dL Normal 0.2-1.0 [facility] Comment on above: Performed By: #### B YELLOW PAGES SPACE SALESPERSON, CRP, CMP ####[facility] [address] [place], [place] [address]Dr. Shahbaz Rogel Calcium [Mass/Vol] 9.3 mg/dL Normal 8.5-10.1 [facility] Comment on above: Performed By: #### B YELLOW PAGES SPACE SALESPERSON, CRP, CMP ####[facility] [address] [place], [place] [address]Dr. Shahbaz Rogel Chloride [Moles/Vol] 105 mmol/L Normal 98-107 [facility] Comment on above: Performed By: #### B YELLOW PAGES SPACE SALESPERSON, CRP, CMP ####[facility] [address] [place], [place] [address]Dr. Shahbaz Rogel CO2 [Moles/Vol] 23.2 mmol/L Normal 21.0-32.0 [facility] Comment on above: Performed By: #### B YELLOW PAGES SPACE SALESPERSON, CRP, CMP ####[facility] [address] [place], [place] [address]Dr. Shahbaz Rogel Creatinine [Mass/Vol] 1.23 mg/dL Critically high 0.55-1.02 [facility] Comment on above: Performed By: #### B YELLOW PAGES SPACE SALESPERSON, CRP, CMP ####[facility] [address] [place] [address]Dr. Shahbaz Rogel EGFR-AF CITIZEN [place] 55 mL/min/1.73m2 Critically low >=60 [facility] Comment on above: Performed By: #### B YELLOW PAGES SPACE SALESPERSON, CRP, CMP ####[facility] [address] [place] [address]Dr. Shahbaz Rogel EGFR-NON AF CITIZEN OF [place] 45 mL/min/1.73m2 Critically low >=60 [facility] Comment on above: Performed By: #### B YELLOW PAGES SPACE SALESPERSON, CRP, CMP ####[facility] [address] [place] [address]Dr. Shahbaz Rogel Globulin (S) [Mass/Vol] 3.3 g/dL Normal [facility] Comment on above: Performed By: #### B YELLOW PAGES SPACE SALESPERSON, CRP, CMP ####[facility] [address] [place] [address]Dr. Shahbaz Rogel Glucose [Mass/Vol] 171 mg/dL Critically high 74-106 [facility] Comment on above: Performed By: #### B YELLOW PAGES SPACE SALESPERSON, CRP, CMP ####[facility] [address] [place] [address]Dr. Shahbaz Rogel Potassium [Moles/Vol] 3.6 mmol/L Normal 3.5-5.1 [facility] Comment on above: Performed By: #### B YELLOW PAGES SPACE SALESPERSON, CRP, CMP ####[facility] [address] [place] [address]Dr. Shahbaz Rogel Protein [Mass/Vol] 6.7 g/dL Normal 6.4-8.2 [facility] Comment on above: Performed By: #### B YELLOW PAGES SPACE SALESPERSON, CRP, CMP ####[facility] [address] [place] [address]Dr. Shahbaz Rogel Sodium [Moles/Vol] 138 mmol/L Normal 136-145 [facility] Comment on above: Performed By: #### B YELLOW PAGES SPACE SALESPERSON, CRP, CMP ####[facility] [address] [place] [address]Dr. Shahbaz Rogel Urea nitrogen [Mass/Vol] 21.0 mg/dL Critically high 7.0-18.0 [facility] Comment on above: Performed By: #### B YELLOW PAGES SPACE SALESPERSON, CRP, CMP ####[facility] [address] [place] [address]Dr. Shahbaz Rogel Urea nitrogen/Creatinine [Mass ratio] 17.1 mg/mg Normal [facility] Comment on above: Performed By: #### B YELLOW PAGES SPACE SALESPERSON, CRP, CMP ####[facility] [address] [place], [place] [address]Dr. Shahbaz Rogel XR CHEST 2 Von 07-06-2022 XR CHEST 2 V Normal [facility] BNPon 07-05-2022 Natriuretic peptide B (Bld) [Mass/Vol] 83.0 pg/mL Normal <=900.0 [facility] Comment on above: Performed By: #### C RP, CMP, BNP ####[facility] [address] [place], [place] [address]Dr. Shahbaz Rogel CBC AUTO DIFFon 07-05-2022 BASO # 0.0 103/ul Normal 0.0-0.1 [facility] Comment on above: Performed By: #### C BC ####[facility] Zixmmlrazv[address] [place], [place] [address]Dr. Shahbaz Juan F Basophils/100 WBC (Bld) 0.4 % Normal 0.2-2.0 [facility] Comment on above: Performed By: #### C BC ####[facility] Uqlkmaxvhp[address] [place], [place] [address]Dr. Shahbaz Juan F EO # 0.1 103/ul Normal 0.0-0.7 [facility] Comment on above: Performed By: #### C BC ####[facility] Okqljdetfw19[address] [place], [place] [address]Dr. Shahbaz Juan F Eosinophils/100 WBC (Bld) 2.9 % Normal 0.9-7.0 [facility] Comment on above: Performed By: #### C BC ####[facility] Rfjmvmcuck[address] [place], [place] [address]Dr. Shahbaz Rogel Erythrocyte distribution width (RBC) [Ratio] 13.4 % Normal 11.0-15.0 [facility] Comment on above: Performed By: #### C BC ####[facility] Meqnfbjnfe594[address] [place], [place] [address]Dr. Shahbaz Rogel Hematocrit (Bld) [Volume fraction] 41.7 % Normal 36.0-48.0 [facility] Comment on above: Performed By: #### C BC ####[facility] Qwfkdjtvwy[address] [place], [place] [address]Dr. Shahbaz Rogel Hemoglobin (Bld) [Mass/Vol] 12.9 g/dL Normal 12.0-16.0 [facility] Comment on above: Performed By: #### C BC ####[facility] Zbccnjkagw[address] [place], [place] [address]Dr. Shahbaz Rogel IG # 0.00 10e3/ul Normal 0.00-0.03 [facility] Comment on above: Performed By: #### C BC ####[facility] Vxaggvdkqg[address] [place], [place] [address]Dr. Shahbaz Rogel IG % 0.0 % Normal 0.0-0.5 [facility] Comment on above: Performed By: #### C BC ####[facility] Vpgnxysdud[address] [place], [place] [address]Dr. Shahbaz Rogel LYMPH # 1.5 103/ul Normal 1.2-3.8 [facility] Comment on above: Performed By: #### C BC ####[facility] Qailpgenyc35[address] [place], [place] [address]Dr. Shahbaz Rogel Lymphocytes/100 WBC (Bld) 32.9 % Normal 20.5-60.0 [facility] Comment on above: Performed By: #### C BC ####[facility] Ansuwbpjuu[address] [place], [place] [address]Dr. Shahbaz Rogel MANUAL DIFF REQ NO Normal [facility] Comment on above: Performed By: #### C BC ####[facility] [address]xugzect[address] [place] [id number]. Shahbaz Juan F MCH (RBC) [Entitic mass] 28.0 pg Normal 26.7-34.0 [facility] Comment on above: Performed By: #### C BC ####[facility] [address]jenkss[address] [place] [id number]. Shahbaz Juan F MCHC (RBC) [Mass/Vol] 30.9 g/dL Normal 29.9-35.2 [facility] Comment on above: Performed By: #### C BC ####[facility] Wfbtjntoqk2889 [place] [phone]. Lilajarrod Rogel MCV (RBC) [Entitic vol] 90.5 fL Normal 81.0-99.0 [facility] Comment on above: Performed By: #### C BC ####[facility] Zhtxvyrsoy[address] [place], [place] [address]Dr. Shahbaz Rogel MONO # 0.4 103/ul Normal 0.3-0.8 [facility] Comment on above: Performed By: #### C BC ####[facility] Lefrsbdtje7[address] [place], [place] [address]Dr. Shahbaz Rogel Monocytes/100 WBC (Bld) 8.0 % Normal 1.7-12.0 [facility] Comment on above: Performed By: #### C BC ####[facility] Knuqslgbwy[address] [place], [place] [address]Dr. Shahbaz Rogel NEUT # 2.5 103/ul Normal 1.4-6.5 [facility] Comment on above: Performed By: #### C BC ####[facility] Mg[address]dfdqupj[address] [place], [place] [id number]. Shahbaz Rogel Neutrophils/100 WBC (Bld) 55.8 % Normal 43.0-75.0 [facility] Comment on above: Performed By: #### C BC ####[facility] Owbsgjwixs84[address] [place], [place] [address]Dr. Shahbaz Rogel Platelet mean volume (Bld) [Entitic vol] 9.7 fL Normal 9.5-13.5 [facility] Comment on above: Performed By: #### C BC ####[facility] [address]hr32[address] [place] [address]Dr. Shahbaz Rogel PLT 158 103/ul Normal 150-450 [facility] Comment on above: Performed By: #### C BC ####[facility] Mvqvpcnnmt4701 [place] [id number]. Shahbaz Rogel RBC 4.61 106/ul Normal 4.20-5.40 [facility] Comment on above: Performed By: #### C BC ####[facility] [address]qkquyub[address] [place] [address]Dr. Shahbaz Rogel WBC 4.5 103/ul Normal 4.0-11.0 [facility] Comment on above: Performed By: #### C BC ####[facility] Icqrdfaswj6[address] [place] [address]Dr. Shahbaz Rogel CRPon 07-05-2022 CRP [Mass/Vol] mg/L Normal <=1.0 [facility] Comment on above: Performed By: #### C RP, CMP, BNP ####[facility] [address] [place] [address]Dr. Shahbaz Rogel ECHO LIMITED STUDYon ECHO LIMITED STUDY Normal [facility] PROF 14(COMP METB)on Albumin [Mass/Vol] 3.2 g/dL Critically low 3.4-5.0 [facility] Comment on above: Performed By: #### C RP, CMP, BNP ####[facility] X[address]bhlc39[address] [place] [address]Dr. Shahbaz Rogel Albumin/Globulin [Mass ratio] 1.0 {ratio} Normal [facility] Comment on above: Performed By: #### C RP, CMP, BNP ####[facility] [address]lepgtz[address] [place] [address]Dr. Shahbaz Rogel ALP [Catalytic activity/Vol] 88 U/L Normal 46-116 [facility] Comment on above: Performed By: #### C RP, CMP, BNP ####[facility] [address]wjamwus[address] [place] [address]Dr. Shahbaz Rogel ALT [Catalytic activity/Vol] 17 U/L Normal 14-59 [facility] Comment on above: Performed By: #### C RP, CMP, BNP ####[facility] Kplgluenpn4504 [place] [address]Dr. Shahbaz Rogel Anion gap [Moles/Vol] 12.5 mmol/L Normal Th e [facility] Comment on above: Performed By: #### C RP, CMP, BNP ####[facility] Fnmwrplqjp4399 [place] [address]Dr. Shahbaz Rogel AST [Catalytic activity/Vol] 18 U/L Normal 15-37 [facility] Comment on above: Performed By: #### C RP, CMP, BNP ####[facility] Svwzddnwjd7644 [place] [address]Dr. Shahbaz Rogel Bilirubin [Mass/Vol] 0.3 mg/dL Normal 0.2-1.0 [facility] Comment on above: Performed By: #### C RP, CMP, BNP ####[facility] Uyubezxwkx[address] [place], [place] [address]Dr. Shahbaz Rogel Calcium [Mass/Vol] 8.9 mg/dL Normal 8.5-10.1 [facility] Comment on above: Performed By: #### C RP, CMP, BNP ####[facility] [address]rq[address] [place] [address]Dr. Shahbaz Rogel Chloride [Moles/Vol] 103 mmol/L Normal 98-107 [facility] Comment on above: Performed By: #### C RP, CMP, BNP ####[facility] Upskpidbmz8592 [place] [address]Dr. Shahbaz Rogel CO2 [Moles/Vol] 28.1 mmol/L Normal 21.0-32.0 [facility] Comment on above: Performed By: #### C RP, CMP, BNP ####[facility] [address]yciqzcrrb0983 [place] [address]Dr. Shahbaz Rogel Creatinine [Mass/Vol] 1.24 mg/dL Critically high 0.55-1.02 [facility] Comment on above: Performed By: #### C RP, CMP, BNP ####[facility] [address]dpkhojb8[address] [place] [address]Dr. Shahbaz Rogel EGFR-AF [place]IZ[place] 54 mL/min/1.73m2 Critically low >=60 [facility] Comment on above: Performed By: #### C RP, CMP, BNP ####[facility] [address]krda1767 [place] [address]Dr. Shahbaz Rogel EGFR-NON AF CITIZEN OF [place] 45 mL/min/1.73m2 Critically low >=60 [facility] Comment on above: Performed By: #### C RP, CMP, BNP ####[facility] [address]awhj[address] [place] [address]Dr. Shahbaz Rogel Globulin (S) [Mass/Vol] 3.1 g/dL Normal [facility] Comment on above: Performed By: #### C RP, CMP, BNP ####[facility] Tkikaeiohh[address] [place], [place] [address]Dr. Shahbaz Rogel Glucose [Mass/Vol] 115 mg/dL Critically high 74-106 [facility] Comment on above: Performed By: #### C RP, CMP, BNP ####[facility] P[address]sfuktbmn[address] [place], [place] [address]Dr. Shahbaz Rogel Potassium [Moles/Vol] 3.6 mmol/L Normal 3.5-5.1 [facility] Comment on above: Performed By: #### C RP, CMP, BNP ####[facility] Xdbaahpcbz[address] [place], [place] [address]Dr. Shahbaz Rogel Protein [Mass/Vol] 6.3 g/dL Critically low 6.4-8.2 [facility] Comment on above: Performed By: #### C RP, CMP, BNP ####[facility] Oqbxqvedrz[address] [place], [place] [address]Dr. Shahbaz Rogel Sodium [Moles/Vol] 140 mmol/L Normal 136-145 [facility] Comment on above: Performed By: #### C RP, CMP, BNP ####[facility] Vquwp[address]hnh[address] [place], [place] [address]Dr. Shahbaz Juan F Urea nitrogen [Mass/Vol] 18.0 mg/dL Normal 7.0-18.0 [facility] Comment on above: Performed By: #### C RP, CMP, BNP ####[facility] [address]bexdzppn9[address] [place] [address]Dr. Shahbaz Rogel Urea nitrogen/Creatinine [Mass ratio] 14.5 mg/mg Normal [facility] Comment on above: Performed By: #### C RP, CMP, BNP ####[facility] [address]xf[address]zhl6[address] [place] [address]Dr. Shahbaz Juan F T3, TOTAL (TRIIODOTHYRONINE) on 07-05-2022 T3, TOTAL 95 ng/dL Normal 71-180 [facility] Comment on above: Performed By: #### T 3TOTAL ####[facility] [address]psmotke06[address] [place] [address]Dr. Shahbaz Juan F CARDIAC ROSALINA 3-6on 2 CK [Catalytic activity/Vol] 78 U/L Normal 26-192 [facility] Comment on above: Performed By: #### C MREP ####[facility] [address]vts[address]ockfj4[address] [place] [address]Dr. Shahbaz Juan F CK.MB [Mass/Vol] 1.44 ng/mL Normal <=3.60 [facility] Comment on above: Performed By: #### C MREP ####[facility] Etygiomjxm60[address] [place] [address]Dr. Shahbaz Rogel HSTROP 9.0 pg/mL Normal 4.0-51.3 [facility] Comment on above: Result Comment: CUT- OFF POINTS HAVE BEEN ESTABLISHED BASED ON THE FOURTH UNIVERSAL DEFINITIONS OF MYOCARDIALINFARCTION. THE UPPER REFERENCE LIMIT (URL) OF TROPONIN, DEFINED THE 99TH PERCENTILE OFcTnI DISTRIBUTION IN A REFERENCE POPULATION, HAS BEEN CONFIRMED THE DECISION THRESHOLDFOR IN DIAGNOSIS. Performed By: #### C MREP ####[facility] [address]qrcsvia68[address] [place] [address]Dr. Shahbaz Juan F CK [Catalytic activity/Vol] 88 U/L Normal 26-192 [facility] Comment on above: Performed By: #### C MREP ####[facility] Zyhbpbqvti1369 [place] [phone]. Shahbaz Rogel CK.MB [Mass/Vol] 1.38 ng/mL Normal <=3.60 [facility] Comment on above: Performed By: #### C MREP ####[facility] [address]uzmfpmg[address] [place] [phone]. Shahbaz Rogel HSTROP 7.0 pg/mL Normal 4.0-51.3 [facility] Comment on above: Result Comment: CUT- OFF POINTS HAVE BEEN ESTABLISHED BASED ON THE FOURTH UNIVERSAL DEFINITIONS OF MYOCARDIALINFARCTION. THE UPPER REFERENCE LIMIT (URL) OF TROPONIN, DEFINED THE 99TH PERCENTILE OFcTnI DISTRIBUTION IN A REFERENCE POPULATION, HAS BEEN CONFIRMED THE DECISION THRESHOLDFOR IN DIAGNOSIS. Performed By: #### C MREP ####[facility] [address]acbvgep5643 [place] [address]Dr. Shahbaz Rogel CARDIAC ROSALINA ADMITon 022 CK [Catalytic activity/Vol] 87 U/L Normal 26-192 [facility] Comment on above: Performed By: #### C JACKSON, CMADM ####[facility] [address]vxd[address]jb3[address] [place] [phone]. Shahbaz Rogel CK.MB [Mass/Vol] 1.80 ng/mL Normal <=3.60 [facility] Comment on above: Performed By: #### C JACKSON, CMADM ####[facility] Hyivonzxgs7784 [place] [phone]. Shahbaz Rogel HSTROP 7.6 pg/mL Normal 4.0-51.3 [facility] Comment on above: Result Comment: CUT- OFF POINTS HAVE BEEN ESTABLISHED BASED ON THE FOURTH UNIVERSAL DEFINITIONS OF MYOCARDIALINFARCTION. THE UPPER REFERENCE LIMIT (URL) OF TROPONIN, DEFINED THE 99TH PERCENTILE OFcTnI DISTRIBUTION IN A REFERENCE POPULATION, HAS BEEN CONFIRMED THE DECISION THRESHOLDFOR IN DIAGNOSIS. Performed By: #### C JACKSON, CMADM ####[facility] Lz[address]taqklr7651 [place] [phone]. Shahbaz Rogel LEN 67 ng/mL Normal 9-82 [facility] Comment on above: Performed By: #### C JACKSON, CMADM ####[facility] Hxashmljsp5829 [place] [phone]. Shahbaz Juan F CBC AUTO DIFFon 07-04-2022 BASO # 0.0 103/ul Normal 0.0-0.1 [facility] Comment on above: Performed By: #### C BC ####[facility] Sskzjpmzrz9300 [place] [id number]. Shahbaz Rogel Basophils/100 WBC (Bld) 0.7 % Normal 0.2-2.0 [facility] Comment on above: Performed By: #### C BC ####[facility] Dvmczjooib[address] [place], [place] [address]Dr. Shahbaz Rogel EO # 0.1 103/ul Normal 0.0-0.7 [facility] Comment on above: Performed By: #### C BC ####[facility] Yoypjcptss[address] [place], [place] [address]Dr. Shahbaz Rogel Eosinophils/100 WBC (Bld) 3.4 % Normal 0.9-7.0 [facility] Comment on above: Performed By: #### C BC ####[facility] Ffyiobcapf[address] [place], [place] [address]Dr. Lilajarrod Rogel Erythrocyte distribution width (RBC) [Ratio] 13.3 % Normal 11.0-15.0 [facility] Comment on above: Performed By: #### C BC ####[facility] Zrptgwearq242[address] [place], [place] [address]Dr. Shahbaz Rogel Hematocrit (Bld) [Volume fraction] 42.1 % Normal 36.0-48.0 [facility] Comment on above: Performed By: #### C BC ####[facility] Lfuqbjvduw[address] [place], [place] [address]Dr. Shahbaz Rogel Hemoglobin (Bld) [Mass/Vol] 13.3 g/dL Normal 12.0-16.0 [facility] Comment on above: Performed By: #### C BC ####[facility] G[address]vszabfj[address] [place], [place] [address]Dr. Shahbaz Rogel IG # 0.01 10e3/ul Normal 0.00-0.03 [facility] Comment on above: Performed By: #### C BC ####[facility] Pcdtxapjjp9972 [place] [address]Dr. Lilajarrod Rogel IG % 0.3 % Normal 0.0-0.5 [facility] Comment on above: Performed By: #### C BC ####[facility] Jucxwgihkf7054 [place] [address]Dr. Lilajarrod Rogel LYMPH # 1.0 103/ul Critically low 1.2-3.8 [facility] Comment on above: Performed By: #### C BC ####[facility] Ebjqcioujc[address] [place], [place] [address]Dr. Lilajarrod Rogel Lymphocytes/100 WBC (Bld) 35.6 % Normal 20.5-60.0 [facility] Comment on above: Performed By: #### C BC ####[facility] [address]ujvvpnkf[address] [place], [place] [address]Dr. Shahbaz Rogel MANUAL DIFF REQ NO Normal [facility] Comment on above: Performed By: #### C BC ####[facility] Vinxxgkxkt265[address] [place], [place] [address]Dr. Shahbaz Juan F MCH (RBC) [Entitic mass] 27.9 pg Normal 26.7-34.0 [facility] Comment on above: Performed By: #### C BC ####[facility] Asgfwpumsq17[address] [place], [place] [address]Dr. Shahbaz Juan F MCHC (RBC) [Mass/Vol] 31.6 g/dL Normal 29.9-35.2 [facility] Comment on above: Performed By: #### C BC ####[facility] Qvibcpuzwp[address] [place], [place] [address]Dr. Shahbaz Juan F MCV (RBC) [Entitic vol] 88.3 fL Normal 81.0-99.0 [facility] Comment on above: Performed By: #### C BC ####[facility] Eiygdpdzuy[address] [place], [place] [address]Dr. Shahbaz Rogel MONO # 0.2 103/ul Critically low 0.3-0.8 [facility] Comment on above: Performed By: #### C BC ####[facility] Rnwhezvgwx6883 [place] [phone]. Shahbaz Rogel Monocytes/100 WBC (Bld) 7.9 % Normal 1.7-12.0 [facility] Comment on above: Performed By: #### C BC ####[facility] Nqilpqsnky4943 [place] [phone]. Shahbaz Rogel NEUT # 1.5 103/ul Normal 1.4-6.5 [facility] Comment on above: Performed By: #### C BC ####[facility] Nzwvofftoq9626 [place] [phone]. Shahbaz Rogel Neutrophils/100 WBC (Bld) 52.1 % Normal 43.0-75.0 [facility] Comment on above: Performed By: #### C BC ####[facility] Kjarmvrvbg9565 [place] [phone]. Shahbaz Rogel Platelet mean volume (Bld) [Entitic vol] 9.5 fL Normal 9.5-13.5 [facility] Comment on above: Performed By: #### C BC ####[facility] Ngtxnxfuml2566 [place] [phone]. Shahbaz Rogel PLT 172 103/ul Normal 150-450 [facility] Comment on above: Performed By: #### C BC ####[facility] Rtexswpdnf0873 [place] [phone]. Shahbaz Rogel RBC 4.77 106/ul Normal 4.20-5.40 [facility] Comment on above: Performed By: #### C BC ####[facility] Cypomeulaf2614 [place] [phone]. Shahbaz Rogel WBC 2.9 103/ul Critically low 4.0-11.0 [facility] Comment on above: Performed By: #### C BC ####[facility] Xehdfhcugw7787 [place] [phone]. Shahbaz Rogel CELL COUNT BODY FLUIDon 10-0 BASOS Normal [facility] Comment on above: Performed By: #### B FCC ####[facility] Uniqapzvfh3257 [place] [phone]. Shahbaz Rogel Eosinophils/100 WBC (Bld) 4 % Normal [facility] Comment on above: Performed By: #### B FCC ####[facility] Oirdzuhjut[address] [place], [place] [address]Dr. Shahbaz Rogel Lymphocytes/100 WBC (Bld) 12 % Normal [facility] Comment on above: Performed By: #### B FCC ####[facility] Mkhsnqsgpt[address] [place], [place] [address]Dr. Shahbaz Rogel Monocytes/100 WBC (Bld) 4 % Normal [facility] Comment on above: Performed By: #### B FCC ####[facility] Gbtgfjddyn[address] [place], [place] [address]Dr. Shahbaz Rogel RBC 67 cubic mm Normal [facility] Comment on above: Performed By: #### B FCC ####[facility] Lnnpkzoogu[address] [place], [place] [address]Dr. Shahbaz Rogel SEGS 80 % Normal [facility] Comment on above: Performed By: #### B FCC ####[facility] Zxowweomxl[address] [place], [place] [address]Dr. Shahbaz Rogel WBC BODY FLUID 223 cubic mm Normal [facility] Comment on above: Performed By: #### B FCC ####[facility] Cnizvucrul[address] [place], [place] [address]Dr. Shahbaz Rogel CULTURE OTHERon 07-04-2022 CULTURE OTHER Culture Observations : NO GROWTH AT 48 HOURS. Normal [facility] Comment on above: Performed By: #### O THCX ####[facility] V[address]vvlhczbj[address] [place], [place] [address]Dr. Shahbaz Rogel CYTOLOGYon 07-04-2022 SENT TO REF LAB 07/04/22 Normal [facility] Comment on above: Performed By: #### C YTO ####[facility] Vgwlzrphni[address] [place], [place] [address]Dr. Shahbaz Rogel Covid-19 PCR (CVDTBH)on SARS-CoV-2 (COVID-19) RNA PAVAN+probe Ql (Unsp spec) Not detected Normal NOT DETECTED [facility] Comment on above: Result Comment: [...] for this test is supported by the [place] of [employer] and Human Service's declaration that [...] be used). Performed By: #### C VDTBH ####[facility] Msdlbzeszh[address] [place], [place] [address]Dr. Shahbaz Rogel GRAM STAINon 07-04-2022 COMMENTS NO ORGANISMS OBSERVED Normal [facility] Comment on above: Performed By: #### G STAIN ####[facility] [address]ovfwmdh[address] [place], [place] [address]Dr. Shahbaz Rogel DIPHTHEROIDS Normal [facility] Comment on above: Performed By: #### G STAIN ####[facility] Obtmuevras[address] [place], [place] [address]Dr. Shahbaz Rogel EPITHELIALS Normal [facility] Comment on above: Performed By: #### G STAIN ####[facility] [address]vttewqtcz[address] [place], [place] [address]Dr. Shahbaz Rogel FUNGAL ELEMENTS Normal [facility] Comment on above: Performed By: #### G STAIN ####[facility] [address]gpitvchm[address] [place], [place] [address]Dr. Shahbaz Rogel GRAM NEG BACILLI Normal [facility] Comment on above: Performed By: #### G STAIN ####[facility] [address]ghsgjtykv04[address] [place], [place] [address]Dr. Shahbaz Rogle GRAM NEG DIPPLOCOCCI Normal [facility] Comment on above: Performed By: #### G STAIN ####[facility] Qdhtouimvt5650 [place] [address]Dr. Shahbaz Rogel GRAM POS BACILLI Normal [facility] Comment on above: Performed By: #### G STAIN ####[facility] [address]vljdtof5137 [place] [address]Dr. Shahbaz Rogel GRAM POSITIVE COCCI Normal [facility] Comment on above: Performed By: #### G STAIN ####[facility] Iixwwszkia25[address] [place] [address]Dr. Shahbaz Rogel GRAM STAIN SOURCE Rt Lower Lobe Bronch ial Washing Normal [facility] Comment on above: Performed By: #### G STAIN ####[facility] Linljrvepo[address] [place], [place] [address]Dr. Shahbaz Rogel GS_DIPTH Normal [facility] Comment on above: Performed By: #### G STAIN ####[facility] Qhlfudguvr[address] [place], [place] [address]Dr. Shahbaz Rogel WBC RARE Normal [facility] Comment on above: Performed By: #### G STAIN ####[facility] [address]zpdgrjqbp[address] [place], [place] [address]Dr. Shahbaz Rogel PROF 14(COMP METB)on 022 Albumin [Mass/Vol] 3.6 g/dL Normal 3.4-5.0 [facility] Comment on above: Performed By: #### C CINDY PAZ ####[facility] [address]zrfoxgurk[address] [place], [place] [address]Dr. Shahbaz Rogel Albumin/Globulin [Mass ratio] 1.1 {ratio} Normal [facility] Comment on above: Performed By: #### C CINDY PAZ ####[facility] Qnilfickpw[address] [place], [place] [address]Dr. Shahbaz Rogel ALP [Catalytic activity/Vol] 102 U/L Normal 46-116 [facility] Comment on above: Performed By: #### C CINDY PAZ ####[facility] [address]ikenxljf[address] [place], [place] [address]Dr. Shahbaz Rogel ALT [Catalytic activity/Vol] 19 U/L Normal 14-59 [facility] Comment on above: Performed By: #### C JACKSON, CINDY ####[facility] [address] [place] [address]Dr. Shahbaz Rogel Anion gap [Moles/Vol] 9.5 mmol/L Normal [facility] Comment on above: Performed By: #### C JACKSON, CINDY ####[facility] Ztfqfqpdbk[address] [place], [place] [address]Dr. Shahbaz Rogel AST [Catalytic activity/Vol] 19 U/L Normal 15-37 [facility] Comment on above: Performed By: #### C CINDY PAZ ####[facility] Nfvzobkoqk[address] [place], [place] [address]Dr. Shahbaz Rogel Bilirubin [Mass/Vol] 0.3 mg/dL Normal 0.2-1.0 [facility] Comment on above: Performed By: #### C CINDY PAZ ####[facility] Tnkpohshfp[address] [place], [place] [address]Dr. Shahbaz Rogel Calcium [Mass/Vol] 8.8 mg/dL Normal 8.5-10.1 [facility] Comment on above: Performed By: #### C CINDY PAZ ####[facility] Xkufvacgvm[address] [place], [place] [address]Dr. Shahbaz Rogel Chloride [Moles/Vol] 107 mmol/L Normal 98-107 [facility] Comment on above: Performed By: #### C CINDY PAZ ####[facility] Ywkvxvkhyy[address] [place], [place] [address]Dr. Shahbaz Rogel CO2 [Moles/Vol] 29.5 mmol/L Normal 21.0-32.0 [facility] Comment on above: Performed By: #### C CINDY PAZ ####[facility] Doaricikrl[address] [place], [place] [address]Dr. Shahbaz Rogel Creatinine [Mass/Vol] 0.97 mg/dL Normal 0.55-1.02 [facility] Comment on above: Performed By: #### C CINDY PAZ ####[facility] [address]ogru[address] [place] [id number]. Shahbaz Rogel EGFR-AF [place]IZ[place] >60 Normal >=60 [facility] Comment on above: Performed By: #### C JACKSON, CMADM ####[facility] [address]fsm[address]ixx[address] [place] [address]Dr. Shahbaz Rogel EGFR-NON AF CITIZEN OF [place] 59 mL/min/1.73m2 Critically low >=60 [facility] Comment on above: Performed By: #### C JACKSON, CMADM ####[facility] [address]zo[address] [place] [address]Dr. Shahbaz Rogel Globulin (S) [Mass/Vol] 3.2 g/dL Normal [facility] Comment on above: Performed By: #### C JACKSON, CMADM ####[facility] [address]svv[address] [place] [address]Dr. Shahbaz Rogel Glucose [Mass/Vol] 89 mg/dL Normal 74-106 [facility] Comment on above: Performed By: #### C JACKSON, CMADM ####[facility] [address]qxnksqkus[address] [place] [address]Dr. Shahbaz Rogel Potassium [Moles/Vol] 4.0 mmol/L Normal 3.5-5.1 [facility] Comment on above: Performed By: #### C JACKSON, CMADM ####[facility] E[address]ujlgzwz[address] [place] [address]Dr. Lilalan Rogel Protein [Mass/Vol] 6.8 g/dL Normal 6.4-8.2 [facility] Comment on above: Performed By: #### C JACKSON, CMADM ####[facility] [address]samiyenhs[address] [place] [address]Dr. Shahbaz Rogel Sodium [Moles/Vol] 142 mmol/L Normal 136-145 [facility] Comment on above: Performed By: #### C JACKSON, CMADM ####[facility] Ovmcvwixbi[address] [place] [address]Dr. Lilalan Rogel Urea nitrogen [Mass/Vol] 11.0 mg/dL Normal 7.0-18.0 [facility] Comment on above: Performed By: #### C JACKSON, CMADM ####[facility] [address]ibiagirt[address] [place] [id number]. Shahbaz Rogel Urea nitrogen/Creatinine [Mass ratio] 11.3 mg/mg Normal [facility] Comment on above: Performed By: #### C MP, CMADM ####[facility] Hvzaqaqhxi[address] [place] [phone]. Shahbaz Rogel T4on 07-04-2022 T4 [Mass/Vol] 4.70 ug/dL Critically low 4.80-13.90 [facility] Comment on above: Performed By: #### T SH, T4 ####[facility] [address]jhbk[address] [place] [address]Dr. Shahbaz Rogel TSHon 07-04-2022 TSH 0.359 uIU/mL Normal 0.358-3.74 0 [facility] Comment on above: Performed By: #### T SH, T4 ####[facility] Jfbztrhdsv[address] [place], [place] [address]Dr. Shahbaz Rogel XR CHEST 1 Von 07-04-2022 XR CHEST 1 V Normal [facility] XR CHEST 1 V Normal [facility] CHLAMYDIA PNEUMONIAE IgG IgM IgAon 06-27-2022 Chlamydia pneumoniae IgA <1:16 Normal Neg:<1:16 [facility] Comment on above: Performed By: #### C HLMPNE ####[facility] Pzqgqffela[address] [place], [place] [address]Dr. Shahbaz Rogel Chlamydia pneumoniae IgG <1:16 Normal Neg:<1:16 [facility] Comment on above: Performed By: #### C HLMPNE ####[facility] I[address]xrjmlck[address] [place], [place] [address]Dr. Shahbaz Rogel Chlamydia pneumoniae IgM <1:10 Normal Neg:<1:10 [facility] Comment on above: Performed By: #### C HLMPNE ####[facility] Gwrbktipnv[address] [place], [place] [address]Dr. Shahbaz Rogel Test Information: Comment Normal [facility] Comment on above: Result Comment: [...] or procedure. Performed By: #### C HLMPNE ####[facility] Z[address]vtmuyplf38[address] [place] [phone]. Shahbaz Rogel [facility]on [facility]-03 SARS-CoV-2 (COVID-19) RNA PAVAN+probe Ql (Unsp spec) Not detected Normal NOT DETECTED [facility] Comment on above: Result Comment: This test is not yet approved or cleared by the [place] FDA. When there are no FDA-approved or cleared tests available, and other criteria are met, FDA can make tests available under an emergency access mechanism called an Emergency Use Authorization (EUA). The EUA for this test is supported by the [place] of Health and Human Service's (HHS's) declaration [...] with SARS-CoV-2. Performed By: #### C VDTBH ####[facility] [address] [place] [phone]. Shahbaz Rogel CYCLIC CITRULLINATED PEPTIDE AB (CCP)on 06-25-2022 CCP Antibodies IgG/IgA 13 units Normal 0-19 e [facility] Comment on above: Result Comment: Nega tive <20 Weak positive 20 - 39 Moderate positive 40 - 59 Strong positive >59 Performed By: #### C CPAB ####[facility] Clxazlenyl[address] [place] [phone] Rogel ANTI NEUTROPHIL CYTOPLASMIC AB (ANCA) PRon 06-24-2022 Anti-MPO Antibodies <0.2 Normal 0.0-0.9 [facility] Comment on above: Result Comment: Perf ormed at: BN Performed By: #### A NCAP ####[facility] V[address]rvgsjxf[address] [place] [address]Dr. Shahbaz Rogel Anti-PR3 Antibodies 5.0 units Critically high 0.0-0.9 [facility] Comment on above: Result Comment: Perf ormed at: BN Performed By: #### A NCAP ####[facility] [address]pfvjmj[address] [place] [address]Dr. Shahbaz Rogel Atypical pANCA <1:20 Normal Neg:<1:20 [facility] Comment on above: Result Comment: The atypical pANCA pattern has been observed in a significantpercentage of patients with ulcerative colitis, primary sclerosingcholangitis and autoimmune hepatitis.Performed at: CB Performed By: #### A NCAP ####[facility] E[address]ace[address]so[address] [place] [address]Dr. Shahbaz Rogel Cytoplasmic (C-ANCA) <1:20 Normal Neg:<1:20 [facility] Comment on above: Result Comment: Perf ormed at: CB Performed By: #### A NCAP ####[facility] Vqnttwatuv[address] [place] [address]Dr. Lilajarrod Rogel Perinuclear (P-ANCA) 1:80 Critically high Neg:<1:20 [facility] Comment on above: Result Comment: [...] at: CB Performed By: #### A NCAP ####[facility] [address] [place] [address]Dr. Shahbaz Rogel ANTIGLOMERULAR BASEMENT MEMB ANTOINE Cervantes 06-24-2022 Anti-GBM Antibodies <0.2 Normal 0.0-0.9 [facility] Comment on above: Performed By: #### A GBM ####[facility] [address]pr[address]ztveai[address] [place], [place] [address]Dr. Shahbaz Juan F SHAHANA EIA W/REFLEX 5 BIOMARKER Son 06-23-2022 SHAHANA Direct Negative Normal Negative [facility] Comment on above: Performed By: #### A NARF ####[facility] Ptmybfgbrn[address] [place], [place] [address]Dr. Shahbaz Juan F ANTISCLERODERMA ABon 022 Antiscleroderma-70 Antibodies <0.2 Normal 0.0-0.9 [facility] Comment on above: Performed By: #### A NSCLER ####[facility] Pfxdlbvhsy[address] [place], [place] [address]Dr. Shahbaz Juan F RHEUMATOID FACTORon 06-23-20 22 RA Latex Turbid. <10.0 Normal <14.0 [facility] Comment on above: Performed By: #### R F ####[facility] Psatpeerym[address] [place], [place] [address]Dr. Shahbaz Rogel CBC AUTO DIFFon 06-22-2022 BASO # 0.0 103/ul Normal 0.0-0.1 [facility] Comment on above: Performed By: #### C BC ####[facility] Ptjwzhpgfr[address] [place] [address]Dr. Shahbaz Rogel Basophils/100 WBC (Bld) 0.5 % Normal 0.2-2.0 [facility] Comment on above: Performed By: #### C BC ####[facility] Btflysciho7[address] [place], [place] [address]Dr. Shahbaz Rogel EO # 0.1 103/ul Normal 0.0-0.7 [facility] Comment on above: Performed By: #### C BC ####[facility] Mgewqxvgme[address] [place], [place] [address]Dr. Shahbaz Rogel Eosinophils/100 WBC (Bld) 3.4 % Normal 0.9-7.0 [facility] Comment on above: Performed By: #### C BC ####[facility] Njbbrluxfk4825 [place] [address]Dr. Shahbaz Rogel Erythrocyte distribution width (RBC) [Ratio] 13.2 % Normal 11.0-15.0 [facility] Comment on above: Performed By: #### C BC ####[facility] Axuxxzxgma56[address] [place], [place] [address]Dr. Shahbaz Rogel Hematocrit (Bld) [Volume fraction] 45.6 % Normal 36.0-48.0 [facility] Comment on above: Performed By: #### C BC ####[facility] Odewrjtjaf67[address] [place], [place] [address]Dr. Shahbaz Rogel Hemoglobin (Bld) [Mass/Vol] 14.7 g/dL Normal 12.0-16.0 [facility] Comment on above: Performed By: #### C BC ####[facility] Bivizfnyrk[address] [place], [place] [address]Dr. Shahbaz Rogel IG # 0.01 10e3/ul Normal 0.00-0.03 [facility] Comment on above: Performed By: #### C BC ####[facility] Vcwuzfhiwi364[address] [place], [place] [address]Dr. Shahbaz Rogel IG % 0.3 % Normal 0.0-0.5 [facility] Comment on above: Performed By: #### C BC ####[facility] Prjfkrwueu64[address] [place], [place] [address]Dr. Shahbaz Rogel LYMPH # 1.0 103/ul Critically low 1.2-3.8 [facility] Comment on above: Performed By: #### C BC ####[facility] Kilobdmcde97[address] [place], [place] [address]Dr. Shahbaz Rogel Lymphocytes/100 WBC (Bld) 25.7 % Normal 20.5-60.0 [facility] Comment on above: Performed By: #### C BC ####[facility] Efgyodmhlc[address] [place], [place] [address]Dr. Shahbaz Rogel MANUAL DIFF REQ NO Normal [facility] Comment on above: Performed By: #### C BC ####[facility] Qelypdbnly3[address] [place] [phone]. Shahbaz Juan F MCH (RBC) [Entitic mass] 28.1 pg Normal 26.7-34.0 [facility] Comment on above: Performed By: #### C BC ####[facility] Jraryynqyo6832 [place] [address]Dr. Shahbaz Juan F MCHC (RBC) [Mass/Vol] 32.2 g/dL Normal 29.9-35.2 [facility] Comment on above: Performed By: #### C BC ####[facility] Ncstdurcqo0969 [place] [address]Dr. Lilajarrod Rogel MCV (RBC) [Entitic vol] 87.2 fL Normal 81.0-99.0 [facility] Comment on above: Performed By: #### C BC ####[facility] Tenzhstrvk[address] [place], [place] [address]Dr. Shahbaz Rogel MONO # 0.2 103/ul Critically low 0.3-0.8 [facility] Comment on above: Performed By: #### C BC ####[facility] Iuegzbbxfo[address] [place], [place] [address]Dr. Shahbaz Rogel Monocytes/100 WBC (Bld) 6.0 % Normal 1.7-12.0 [facility] Comment on above: Performed By: #### C BC ####[facility] [address]afhefcpn[address] [place], [place] [address]Dr. Shahbaz Rogel NEUT # 2.5 103/ul Normal 1.4-6.5 [facility] Comment on above: Performed By: #### C BC ####[facility] Zrlvircxaf[address] [place], [place] [address]Dr. Shahbaz Rogel Neutrophils/100 WBC (Bld) 64.1 % Normal 43.0-75.0 [facility] Comment on above: Performed By: #### C BC ####[facility] Lxnvsddthr[address] [place], [place] [address]Dr. Shahbaz Rogel Platelet mean volume (Bld) [Entitic vol] 9.4 fL Critically low 9.5-13.5 [facility] Comment on above: Performed By: #### C BC ####[facility] Cutafvecul[address] [place] [phone]. Shahbaz Juan F PLT 212 103/ul Normal 150-450 [facility] Comment on above: Performed By: #### C BC ####[facility] Fuiiosyqpe7[address] [place] [phone]. Shahbaz Rogel RBC 5.23 106/ul Normal 4.20-5.40 [facility] Comment on above: Performed By: #### C BC ####[facility] Cmltkjkppy48[address] [place] [address]Dr. Shahbaz Juan F WBC 3.9 103/ul Critically low 4.0-11.0 [facility] Comment on above: Performed By: #### C BC ####[facility] Cxczkftyzo64[address] [place] [address]Dr. Shahbaz Rogel PROF 14(COMP METB)on 022 Albumin [Mass/Vol] 4.1 g/dL Normal 3.4-5.0 [facility] Comment on above: Performed By: #### C MP ####[facility] G[address]fxnbsspi37[address] [place] [address]Dr. Shahbaz Rogel Albumin/Globulin [Mass ratio] 1.1 {ratio} Normal [facility] Comment on above: Performed By: #### C MP ####[facility] Spankkldgx[address] [place] [address]Dr. Shahbaz Rogel ALP [Catalytic activity/Vol] 133 U/L Critically high 46-116 [facility] Comment on above: Performed By: #### C MP ####[facility] Mskciztwfv9299 [place] [address]Dr. Shahbaz Rogel ALT [Catalytic activity/Vol] 29 U/L Normal 14-59 [facility] Comment on above: Performed By: #### C MP ####[facility] Vgmupfxlio0820 [place] [address]Dr. Shahbaz Rogel Anion gap [Moles/Vol] 10.9 mmol/L Normal [facility] Comment on above: Performed By: #### C MP ####[facility] Lpbknllcoq1334 [place] [phone]. Shahbaz Rogel AST [Catalytic activity/Vol] 23 U/L Normal 15-37 [facility] Comment on above: Performed By: #### C MP ####[facility] Zdbmvdxzsb1844 [place] [phone]. Shahbaz Rogel Bilirubin [Mass/Vol] 0.3 mg/dL Normal 0.2-1.0 [facility] Comment on above: Performed By: #### C MP ####[facility] [address]wimzeyjn[address] [place] [phone]. Shahbaz Rogel Calcium [Mass/Vol] 9.1 mg/dL Normal 8.5-10.1 [facility] Comment on above: Performed By: #### C MP ####[facility] [address] [place], [place] [address]Dr. Shahbaz Rogel Chloride [Moles/Vol] 103 mmol/L Normal 98-107 [facility] Comment on above: Performed By: #### C MP ####[facility] Cjbfqmbdex0254 [place] [phone]. Shahbaz Rogel CO2 [Moles/Vol] 30.8 mmol/L Normal 21.0-32.0 [facility] Comment on above: Performed By: #### C MP ####[facility] Aqmdvggeis6615 [place] [phone]. Shahbaz Rogel Creatinine [Mass/Vol] 1.02 mg/dL Normal 0.55-1.02 [facility] Comment on above: Performed By: #### C MP ####[facility] Qlyealjnqd0570 [place] [phone]. Shahbaz Juan F EGFR-AF [place]IZ[place] >60 Normal >=60 [facility] Comment on above: Performed By: #### C MP ####[facility] [address]vmyighsgf[address] [place], [place] [address]Dr. Lilajarrod Juan F EGFR-NON AF [place]IZ[place] 56 mL/min/1.73m2 Critically low >=60 [facility] Comment on above: Performed By: #### C MP ####[facility] Oecqulvvcz[address] [place] [phone]. Shahbaz Rogel Globulin (S) [Mass/Vol] 3.7 g/dL Normal [facility] Comment on above: Performed By: #### C MP ####[facility] Drlwvhgosr6789 [place] [address]Dr. Shahbaz Rogel Glucose [Mass/Vol] 80 mg/dL Normal 74-106 [facility] Comment on above: Performed By: #### C MP ####[facility] Zcyrartbjs1112 [place] [address]Dr. Shahbaz Rogel Potassium [Moles/Vol] 3.7 mmol/L Normal 3.5-5.1 [facility] Comment on above: Performed By: #### C MP ####[facility] Ihsjbpizsa7677 [place] [address]Dr. Shahbaz Rogel Protein [Mass/Vol] 7.8 g/dL Normal 6.4-8.2 [facility] Comment on above: Performed By: #### C MP ####[facility] S[address]rwawwkj[address] [place], [place] [address]Dr. Shahbaz Rogel Sodium [Moles/Vol] 141 mmol/L Normal 136-145 [facility] Comment on above: Performed By: #### C MP ####[facility] Aoyjfacecu50[address] [place], [place] [address]Dr. Shahbaz Rogel Urea nitrogen [Mass/Vol] 10.0 mg/dL Normal 7.0-18.0 [facility] Comment on above: Performed By: #### C MP ####[facility] Fuuetncvmz3599 [place] [address]Dr. Shahbaz Rogel Urea nitrogen/Creatinine [Mass ratio] 9.8 mg/mg Normal [facility] Comment on above: Performed By: #### C MP ####[facility] Leozgvdqri[address] [place], [place] [address]Dr. Shahbaz Rogel SED RATE [facility] 2021 SED RATE 17 mm/hr Normal <=30 [facility] Comment on above: Performed By: #### S EDR ####[facility] Kcardzwfdn337[address] [place], [place] [address]Dr. Shahbaz Rogel CT CHEST HI RESOLUTIONon CT CHEST HI RESOLUTION Normal Th e [facility] XR ANKLE RT MIN 3 VIEWSon XR ANKLE RT MIN 3 VIEWS Normal [facility] CT CHEST WO CONon 03-03-2022 CT CHEST WO CON Normal [facility] CT CSPINE WO CONon CT CSPINE WO CON Normal [facility] XR CHEST 2 Von 03-03-2022 XR CHEST 2 V Normal [facility] XR STERNUM MIN 2 VIEWSon XR STERNUM MIN 2 VIEWS Normal e [facility] CT HEAD WO CONon 03-02-2022 CT HEAD WO CON Normal [facility] CBC AUTO DIFFon 01-21-2022 BASO # 0.0 103/ul Normal 0.0-0.1 [facility] Comment on above: Performed By: #### C BC ####[facility] Qjoyrdclyt[address] [place], [place] [address]Dr. Shahbaz Rogel Basophils/100 WBC (Bld) 0.0 % Critically low 0.2-2.0 [facility] Comment on above: Performed By: #### C BC ####[facility] Pkhedcuqiz10[address] [place], [place] [address]DrChen Rogel EO # 0.0 103/ul Normal 0.0-0.7 [facility] Comment on above: Performed By: #### C BC ####[facility] Dykxducctu97[address] [place], [place] [address]DrChen Rogel Eosinophils/100 WBC (Bld) 0.0 % Critically low 0.9-7.0 [facility] Comment on above: Performed By: #### C BC ####[facility] Vcuyvvuplm[address] [place], [place] [address]DrChen Rogel Erythrocyte distribution width (RBC) [Ratio] 14.2 % Normal 11.0-15.0 [facility] Comment on above: Performed By: #### C BC ####[facility] Gnrmdbwxkd[address] [place], [place] [address]DrChen Rogel Hematocrit (Bld) [Volume fraction] 38.9 % Normal 36.0-48.0 [facility] Comment on above: Performed By: #### C BC ####[facility] Bkjxqtchda9851 [place] [address]Dr. Shahbaz Rogel Hemoglobin (Bld) [Mass/Vol] 11.8 g/dL Critically low 12.0-16.0 [facility] Comment on above: Performed By: #### C BC ####[facility] Jkhafisgql64[address] [place], [place] [address]Dr. Shahbaz Rogel IG # 0.03 10e3/ul Normal 0.00-0.03 [facility] Comment on above: Performed By: #### C BC ####[facility] Wzszxtvxnx[address] [place], [place] [address]Dr. Shahbaz Rogel IG % 0.4 % Normal 0.0-0.5 [facility] Comment on above: Performed By: #### C BC ####[facility] Itruekqhbt99[address] [place], [place] [address]DrChen Rogel LYMPH # 0.8 103/ul Critically low 1.2-3.8 [facility] Comment on above: Performed By: #### C BC ####[facility] Fpwufurvrr[address] [place], [place] [address]DrChen Lilajarrod Rogel Lymphocytes/100 WBC (Bld) 10.3 % Critically low 20.5-60.0 [facility] Comment on above: Performed By: #### C BC ####[facility] Hskebtdhwl[address] [place], [place] [address]DrChen Rogel MANUAL DIFF REQ NO Normal [facility] Comment on above: Performed By: #### C BC ####[facility] Lvnexnsphz6440[address] [place], [place] [address]Dr. Shahbaz Rogel MCH (RBC) [Entitic mass] 27.1 pg Normal 26.7-34.0 [facility] Comment on above: Performed By: #### C BC ####[facility] Fynmhwkaxa[address] [place], [place] [address]Dr. Shahbaz Rogel MCHC (RBC) [Mass/Vol] 30.3 g/dL Normal 29.9-35.2 [facility] Comment on above: Performed By: #### C BC ####[facility] Fhtgvdowry[address] [place], [place] [address]DrChen Rogel MCV (RBC) [Entitic vol] 89.2 fL Normal 81.0-99.0 [facility] Comment on above: Performed By: #### C BC ####[facility] Xzvoosnbiw17[address] [place], [place] [address]DrChen Rogel MONO # 0.4 103/ul Normal 0.3-0.8 [facility] Comment on above: Performed By: #### C BC ####[facility] Uthstqmwdk[address] [place], [place] [address]DrChen Rogel Monocytes/100 WBC (Bld) 4.7 % Normal 1.7-12.0 [facility] Comment on above: Performed By: #### C BC ####[facility] X[address]quptnddp[address] [place], [place] [address]DrChen Rogel NEUT # 6.6 103/ul Critically high 1.4-6.5 [facility] Comment on above: Performed By: #### C BC ####[facility] Jlyxzgbuxm[address] [place], [place] [address]DrChen Rogel Neutrophils/100 WBC (Bld) 84.6 % Critically high 43.0-75.0 [facility] Comment on above: Performed By: #### C BC ####[facility] Wmutaeishs[address] [place], [place] [address]DrChen Rogel Platelet mean volume (Bld) [Entitic vol] 10.0 fL Normal 9.5-13.5 [facility] Comment on above: Performed By: #### C BC ####[facility] Gxdausacio[address] [place], [place] [address]DrChen Rogel PLT 165 103/ul Normal 150-450 [facility] Comment on above: Performed By: #### C BC ####[facility] Aviqmbr[address] [place], [place] [address]DrChen Rogel RBC 4.36 106/ul Normal 4.20-5.40 [facility] Comment on above: Performed By: #### C BC ####[facility] Rnbdplaslx[address] [place], [place] [address]Dr. Shahbaz Juan F WBC 7.8 103/ul Normal 4.0-11.0 [facility] Comment on above: Performed By: #### C BC ####[facility] Rkcuijhfyw[address] [place], [place] [address]Dr. Shahbaz Rogel ER URINE PROFILEon 2 Bilirubin Ql (U) Negative Normal NEGATIVE [facility] Comment on above: Performed By: #### E RUR ####[facility] Whfxngxkew711[address] [place], [place] [address]Dr. Shahbaz Rogel Clarity (U) CLEAR Normal CLEAR [facility] Comment on above: Performed By: #### E RUR ####[facility] Gfnkuidxhw06[address] [place], [place] [address]Dr. Shahbaz Rogel Color (U) LT. YELLOW Normal YELLOW [facility] Comment on above: Performed By: #### E RUR ####[facility] Twrpplfzxn[address] [place], [place] [address]Dr. Shahbaz Rogel ERUAHD A micrscopic examina tion will be performed if indicated. Normal [facility] Comment on above: Performed By: #### E RUR ####[facility] Ngdlmdhofw224[address] [place], [place] [address]Dr. Shahbaz Rogel Glucose Ql (U) Negative Normal NEGATIVE [facility] Comment on above: Performed By: #### E RUR ####[facility] Gaijtcbetc[address] [place], [place] [address]Dr. Shahbaz Rogel Hemoglobin Ql (U) Negative Normal NEGATIVE [facility] Comment on above: Performed By: #### E RUR ####[facility] Nmrrcjhbfo196[address] [place], [place] [address]Dr. Shahbaz Rogel Ketones Ql (U) Negative Normal NEGATIVE [facility] Comment on above: Performed By: #### E RUR ####[facility] Qnmkzedwkt279[address] [place], [place] [address]Dr. Shahbaz Rogel LEUKOCYTES Negative Normal NEGATIVE [facility] Comment on above: Performed By: #### E RUR ####[facility] [address] [place] [address]Dr. Shahbaz Rogel Nitrite Ql (U) Negative Normal NEGATIVE [facility] Comment on above: Performed By: #### E RUR ####[facility] [address]rg[address] [place] [address]Dr. Shahbaz Rogel pH (U) 6.0 [pH] Normal 5-9 [facility] Comment on above: Performed By: #### E RUR ####[facility] Kayzuepehq7[address] [place], [place] [address]Dr. Shahbaz Rogel SPEC GRAVITY 1.020 Normal 1.005-<=1. 025 [facility] Comment on above: Performed By: #### E RUR ####[facility] Krbaxlsdrv[address] [place], [place] [address]Dr. Shahbaz Juan F UA PROTEIN Negative Normal NEGATIVE/ TRACE [facility] Comment on above: Performed By: #### E RUR ####[facility] Zqafljhphs[address] [place], [place] [address]Dr. Shahbaz Rogel UR MICRO IND NOT INDICATED Normal [facility] Comment on above: Performed By: #### E RUR ####[facility] Louttdxctr[address] [place], [place] [address]Dr. Shahbaz Juan F Urobilinogen Qn (U) 0.2 {Melida'U}/dL Normal 0.2 - 1. 0 [facility] Comment on above: Performed By: #### E RUR ####[facility] Ebnktfrjdl37[address] [place], [place] [address]Dr. Shahbaz Juan F POINT OF CARE GLUCOSEon 01-01 Glucose [Mass/Vol] 151 mg/dL Critically high 74-106 [facility] Comment on above: Performed By: #### P OCGLUC ####[facility] Ntzxxtlshb28[address] [place], [place] [address]Dr. Lilajarrod Juan F Glucose [Mass/Vol] 248 mg/dL Critically high 74-106 [facility] Comment on above: Performed By: #### P OCGLUC ####[facility] [address]wlqa[address] [place] [address]Dr. Shahbaz Rogel PROF 14(COMP METB)on 022 Albumin [Mass/Vol] 2.8 g/dL Critically low 3.4-5.0 [facility] Comment on above: Performed By: #### C MP ####[facility] X[address]wlxlkmig[address] [place] [address]Dr. Shahbaz Rogel Albumin/Globulin [Mass ratio] 0.9 {ratio} Normal [facility] Comment on above: Performed By: #### C MP ####[facility] Dgpwumiteu118[address] [place], [place] [address]Dr. Shahbaz Rogel ALP [Catalytic activity/Vol] 90 U/L Normal 46-116 [facility] Comment on above: Performed By: #### C MP ####[facility] Hoebywxhkd25[address] [place], [place] [address]Dr. Shahbaz Rogel ALT [Catalytic activity/Vol] 20 U/L Normal 14-59 [facility] Comment on above: Performed By: #### C MP ####[facility] Mkalgiozkd215[address] [place], [place] [address]Dr. Shahbaz Rogel Anion gap [Moles/Vol] 8.9 mmol/L Normal [facility] Comment on above: Performed By: #### C MP ####[facility] Nqgpioxqqc066[address] [place], [place] [address]Dr. Shahbaz Rogel AST [Catalytic activity/Vol] 14 U/L Critically low 15-37 [facility] Comment on above: Performed By: #### C MP ####[facility] Vqwkpyskjb7[address] [place], [place] [address]Dr. Shahbaz Rogel Bilirubin [Mass/Vol] 0.1 mg/dL Critically low 0.2-1.3 [facility] Comment on above: Performed By: #### C MP ####[facility] Nxwbadarxi513[address] [place], [place] [address]Dr. Shahbaz Rogel Calcium [Mass/Vol] 8.2 mg/dL Critically low 8.5-10.1 [facility] Comment on above: Performed By: #### C MP ####[facility] S[address]chqmwf6[address] [place] [address]Dr. Shahbaz Rogel Chloride [Moles/Vol] 110 mmol/L Critically high 98-107 [facility] Comment on above: Performed By: #### C MP ####[facility] [address]ychkutrvs15[address] [place] [address]Dr. Shahbaz Rogel CO2 [Moles/Vol] 28.0 mmol/L Normal 22.0-30.0 [facility] Comment on above: Performed By: #### C MP ####[facility] Kkhanafxmz607[address] [place], [place] [address]Dr. Shahbaz Rogel Creatinine [Mass/Vol] 0.78 mg/dL Normal 0.52-1.04 [facility] Comment on above: Performed By: #### C MP ####[facility] Tmecwtvajj057[address] [place], [place] [address]Dr. Shahbaz Rogel EGFR-AF CITIZEN [place] >60 Normal >=60 [facility] Comment on above: Performed By: #### C MP ####[facility] Cxrexhycja[address] [place] [address]Dr. Shahbaz Rogel EGFR-NON AF CITIZEN OF [place] >60 Normal >=60 [facility] Comment on above: Performed By: #### C MP ####[facility] Nrjlyhjoyg79[address] [place] [address]Dr. Shahbaz Rogel Globulin (S) [Mass/Vol] 3.1 g/dL Normal [facility] Comment on above: Performed By: #### C MP ####[facility] Rfrknxnije8783 [place] [address]Dr. Shahbaz Rogel Glucose [Mass/Vol] 121 mg/dL Critically high 74-106 [facility] Comment on above: Performed By: #### C MP ####[facility] [address]jc[address]sfh0086 [place] [address]Dr. Shahbaz Rogel Potassium [Moles/Vol] 3.9 mmol/L Normal 3.4-5.0 [facility] Comment on above: Performed By: #### C MP ####[facility] [address]jxofsl4[address] [place] [address]Dr. Shahbaz Rogel Protein [Mass/Vol] 5.9 g/dL Critically low 6.1-8.2 [facility] Comment on above: Performed By: #### C MP ####[facility] Ymydbkkzqn99[address] [place] [address]Dr. Shahbaz Rogel Sodium [Moles/Vol] 143 mmol/L Normal 137-145 [facility] Comment on above: Performed By: #### C MP ####[facility] Nprigtjpuk496[address] [place], [place] [address]Dr. Shahbaz Juan F Urea nitrogen [Mass/Vol] 26.0 mg/dL Critically high 7.0-18.0 [facility] Comment on above: Performed By: #### C MP ####[facility] Xlawupuhqm355[address] [place], [place] [address]Dr. Shahbaz Rogel Urea nitrogen/Creatinine [Mass ratio] 33.3 mg/mg Normal [facility] Comment on above: Performed By: #### C MP ####[facility] Kduapevhvz627[address] [place], [place] [address]Dr. Shahbaz Juan F ZICWH-5-ZFLMZYAOBFLya 2021 Abajr-0-Cuunazmbtba, Serum 154 mg/dL Normal 101-187 [facility] Comment on above: Performed By: #### A LPHA-1 ####[facility] Hcditcwmsv[address] [place], [place] [address]Dr. Shahbaz Juan F CBC AUTO DIFFon 01-20-2022 BASO # 0.0 103/ul Normal 0.0-0.1 [facility] Comment on above: Performed By: #### C BC ####[facility] Sebqhoqejg[address] [place], [place] [address]Dr. Shahbaz Juan F Basophils/100 WBC (Bld) 0.0 % Critically low 0.2-2.0 [facility] Comment on above: Performed By: #### C BC ####[facility] Ueorgaigvr[address] [place], [place] [address]Dr. Shahbaz Rogel EO # 0.0 103/ul Normal 0.0-0.7 [facility] Comment on above: Performed By: #### C BC ####[facility] Imvxjexiyl060[address] [place], [place] [address]Dr. Shahbaz Rogel Eosinophils/100 WBC (Bld) 0.0 % Critically low 0.9-7.0 [facility] Comment on above: Performed By: #### C BC ####[facility] Fiiijjbmmd713[address] [place], [place] [address]Dr. Shahbaz Rogel Erythrocyte distribution width (RBC) [Ratio] 13.7 % Normal 11.0-15.0 [facility] Comment on above: Performed By: #### C BC ####[facility] Puheakpnex3434[address] [place], [place] [address]Dr. Shahbaz Rogel Hematocrit (Bld) [Volume fraction] 41.2 % Normal 36.0-48.0 [facility] Comment on above: Performed By: #### C BC ####[facility] Ciqcgxwtpm37[address] [place], [place] [address]Dr. Shahbaz Rogel Hemoglobin (Bld) [Mass/Vol] 12.8 g/dL Normal 12.0-16.0 [facility] Comment on above: Performed By: #### C BC ####[facility] Aqjlxxrmpx1360[address] [place], [place] [address]Dr. Shahbaz Rogel IG # 0.10 10e3/ul Critically high 0.00-0.03 [facility] Comment on above: Performed By: #### C BC ####[facility] Xgdwwdgqax459[address] [place], [place] [address]Dr. Shahbaz Rogel IG % 0.5 % Normal 0.0-0.5 [facility] Comment on above: Performed By: #### C BC ####[facility] Lzyciudtfj549[address] [place], [place] [address]DrChen Rogel LYMPH # 0.7 103/ul Critically low 1.2-3.8 [facility] Comment on above: Performed By: #### C BC ####[facility] Lkwptnapxh8614[address] [place], [place] [address]Dr. Shahbaz Rogel Lymphocytes/100 WBC (Bld) 6.2 % Critically low 20.5-60.0 [facility] Comment on above: Result Comment: dif. not rqd. same as 01/18/22 Performed By: #### C BC ####[facility] [address] [place] [address]Dr. Shahbaz Rogel MANUAL DIFF REQ NO Normal [facility] Comment on above: Performed By: #### C BC ####[facility] Gkjdadwqyt[address] [place], [place] [address]Dr. Shahbaz Rogel MCH (RBC) [Entitic mass] 27.2 pg Normal 26.7-34.0 [facility] Comment on above: Performed By: #### C BC ####[facility] Buhxqhoodt6512[address] [place], [place] [address]Dr. Shahbaz Rogel MCHC (RBC) [Mass/Vol] 31.1 g/dL Normal 29.9-35.2 [facility] Comment on above: Performed By: #### C BC ####[facility] Dzjijzehmt[address] [place], [place] [address]Dr. Shahbaz Rogel MCV (RBC) [Entitic vol] 87.5 fL Normal 81.0-99.0 [facility] Comment on above: Performed By: #### C BC ####[facility] Ymkpopnwgi3470[address] [place], [place] [address]Dr. Shahbaz Rogel MONO # 0.2 103/ul Critically low 0.3-0.8 [facility] Comment on above: Performed By: #### C BC ####[facility] Zuqlvvznie7[address] [place], [place] [address]Dr. Shahbaz Rogel Monocytes/100 WBC (Bld) 1.7 % Normal 1.7-12.0 [facility] Comment on above: Performed By: #### C BC ####[facility] Agbcmogsvj416[address] [place], [place] [address]Dr. Shahbza Rogel NEUT # 9.8 103/ul Critically high 1.4-6.5 [facility] Comment on above: Performed By: #### C BC ####[facility] [address]ingsdsj[address] [place] [address]Dr. Shahbaz Rogel Neutrophils/100 WBC (Bld) 91.6 % Critically high 43.0-75.0 [facility] Comment on above: Performed By: #### C BC ####[facility] Agfiyzhkmo80[address] [place] [address]Dr. Shahbaz Rogel Platelet mean volume (Bld) [Entitic vol] 10.0 fL Normal 9.5-13.5 [facility] Comment on above: Performed By: #### C BC ####[facility] Obfygqxiqs184[address] [place], [place] [address]Dr. Shahbaz Rogel PLT 198 103/ul Normal 150-450 [facility] Comment on above: Performed By: #### C BC ####[facility] Kdqcihtxje379[address] [place], [place] [address]Dr. Shahbaz Rogel RBC 4.71 106/ul Normal 4.20-5.40 [facility] Comment on above: Performed By: #### C BC ####[facility] Ukryzkpcrg475[address] [place], [place] [address]Dr. Shahbaz Rogel WBC 10.7 103/ul Normal 4.0-11.0 [facility] Comment on above: Performed By: #### C BC ####[facility] Avjqqurhwb[address] [place], [place] [address]Dr. Shahbaz Rogel POINT OF CARE GLUCOSEon 04-2 Glucose [Mass/Vol] 157 mg/dL Critically high 74-106 [facility] Comment on above: Performed By: #### P OCGLUC ####[facility] Hmwuvsiciu724[address] [place], [place] [address]Dr. Shahbaz Rogel Glucose [Mass/Vol] 225 mg/dL Critically high 74-106 [facility] Comment on above: Performed By: #### P OCGLUC ####[facility] Bmpezjmhoc998[address] [place], [place] [address]Dr. Shahbaz Rogel Glucose [Mass/Vol] 185 mg/dL Critically high 74-106 [facility] Comment on above: Performed By: #### P OCGLUC ####[facility] [address]izkedakrv[address] [place], [place] [address]Dr. Shahbaz Rogel Glucose [Mass/Vol] 134 mg/dL Critically high 74-106 [facility] Comment on above: Performed By: #### P OCGLUC ####[facility] Nwknowmmaa8374 [place] [address]Dr. Shahbaz Rogel PROF 14(COMP METB)on 022 Albumin [Mass/Vol] 3.0 g/dL Critically low 3.4-5.0 [facility] Comment on above: Performed By: #### C MP ####[facility] Zvvleknjmn0878 [place] [address]Dr. Shahbaz Rogel Albumin/Globulin [Mass ratio] 0.9 {ratio} Normal [facility] Comment on above: Performed By: #### C MP ####[facility] Dxgqtntwzb4467[address] [place], [place] [address]Dr. Shahbaz Rogel ALP [Catalytic activity/Vol] 81 U/L Normal 46-116 [facility] Comment on above: Performed By: #### C MP ####[facility] Ergcxxqavj504[address] [place], [place] [address]Dr. Shahbaz Juan F ALT [Catalytic activity/Vol] 14 U/L Normal 14-59 [facility] Comment on above: Performed By: #### C MP ####[facility] Uaodisdomg5423[address] [place], [place] [address]Dr. Shahbaz Juan F Anion gap [Moles/Vol] 13.1 mmol/L Normal [facility] Comment on above: Performed By: #### C MP ####[facility] Qjvrifwxia099[address] [place], [place] [address]Dr. Shahbaz Juan F AST [Catalytic activity/Vol] 20 U/L Normal 15-37 [facility] Comment on above: Performed By: #### C MP ####[facility] Zsntkgauhm935[address] [place], [place] [address]Dr. Lilajarrod Juan F Bilirubin [Mass/Vol] 0.3 mg/dL Normal 0.2-1.3 [facility] Comment on above: Performed By: #### C MP ####[facility] Fepqyhrqeo[address] [place], [place] [address]Dr. Lilajarrod Rogel Calcium [Mass/Vol] 8.5 mg/dL Normal 8.5-10.1 [facility] Comment on above: Performed By: #### C MP ####[facility] Bllluutvmp5808 [place] [address]Dr. Shahbaz Rogel Chloride [Moles/Vol] 107 mmol/L Normal 98-107 [facility] Comment on above: Performed By: #### C MP ####[facility] Ptvwwapoab807[address] [place], [place] [address]Dr. Shahbaz Rogel CO2 [Moles/Vol] 24.0 mmol/L Normal 22.0-30.0 [facility] Comment on above: Performed By: #### C MP ####[facility] Ypjdfwzqwp639[address] [place], [place] [address]Dr. Shahbaz Rogel Creatinine [Mass/Vol] 1.00 mg/dL Normal 0.52-1.04 [facility] Comment on above: Performed By: #### C MP ####[facility] Mykklmgkue07[address] [place], [place] [address]Dr. Lilajarrod Juan F EGFR-AF [place]IZ[place] >60 Normal >=60 [facility] Comment on above: Performed By: #### C MP ####[facility] Sczzhtetjn459[address] [place], [place] [address]Dr. Lilajarrod Juan F EGFR-NON AF CITIZEN OF [place] 57 mL/min/1.73m2 Critically low >=60 [facility] Comment on above: Performed By: #### C MP ####[facility] Xqvmrbcxrh818[address] [place], [place] [address]Dr. Shahbaz Rogel Globulin (S) [Mass/Vol] 3.4 g/dL Normal [facility] Comment on above: Performed By: #### C MP ####[facility] Krafaberfl620[address] [place], [place] [address]Dr. Shahbaz Rogel Glucose [Mass/Vol] 153 mg/dL Critically high 74-106 T [facility] Comment on above: Performed By: #### C MP ####[facility] Wsoaqedjqx890[address] [place], [place] [address]Dr. Shahbaz Rogel Potassium [Moles/Vol] 4.1 mmol/L Normal 3.4-5.0 [facility] Comment on above: Performed By: #### C MP ####[facility] Htbcslpdhc8[address] [place], [place] [address]Dr. Shahbaz Rogel Protein [Mass/Vol] 6.4 g/dL Normal 6.1-8.2 [facility] Comment on above: Performed By: #### C MP ####[facility] Efuylwdtfz56[address] [place], [place] [address]Dr. Shahbaz Rogel Sodium [Moles/Vol] 140 mmol/L Normal 137-145 [facility] Comment on above: Performed By: #### C MP ####[facility] Dfzbvsvnri635[address] [place], [place] [address]Dr. Shahbaz Rogel Urea nitrogen [Mass/Vol] 26.0 mg/dL Critically high 7.0-18.0 [facility] Comment on above: Performed By: #### C MP ####[facility] [address]vuxqvaekl[address] [place], [place] [address]Dr. Shahbaz Rogel Urea nitrogen/Creatinine [Mass ratio] 26.5 mg/mg Normal [facility] Comment on above: Performed By: #### C MP ####[facility] Ajqwmpxlzn988[address] [place], [place] [address]Dr. Shahbaz Rogel BNPon 01-19-2022 Natriuretic peptide B (Bld) [Mass/Vol] 117.0 pg/mL Normal <=900.0 [facility] Comment on above: Performed By: #### B YELLOW [employer] SP[employer] SALESPERSON, CMP ####[facility] Vmcallqldp7[address] [place], [place] [address]Dr. Shahbaz Rogel CBC AUTO DIFFon 01-19-2022 BASO # 0.0 103/ul Normal 0.0-0.1 [facility] Comment on above: Performed By: #### C BC ####[facility] Cmtfigcfzs3938[address] [place], [place] [address]Dr. Shahbaz Rogel Basophils/100 WBC (Bld) 0.0 % Critically low 0.2-2.0 [facility] Comment on above: Performed By: #### C BC ####[facility] [address] [place] [id number]. Shahbaz Rogel EO # 0.0 103/ul Normal 0.0-0.7 [facility] Comment on above: Performed By: #### C BC ####[facility] Pybfmsmtzg5844 [place] [address]Dr. Shahbaz Rogel Eosinophils/100 WBC (Bld) 0.0 % Critically low 0.9-7.0 [facility] Comment on above: Performed By: #### C BC ####[facility] Lttjnjlhay[address] [place], [place] [address]Dr. Shahbaz Rogel Erythrocyte distribution width (RBC) [Ratio] 13.4 % Normal 11.0-15.0 [facility] Comment on above: Performed By: #### C BC ####[facility] Gihsphbivl[address] [place], [place] [address]Dr. Shahbaz Rogel Hematocrit (Bld) [Volume fraction] 46.3 % Normal 36.0-48.0 [facility] Comment on above: Performed By: #### C BC ####[facility] Xjhrtvxaie[address] [place], [place] [address]Dr. Shahbaz Rogel Hemoglobin (Bld) [Mass/Vol] 14.3 g/dL Normal 12.0-16.0 [facility] Comment on above: Performed By: #### C BC ####[facility] Gpfuszytjh[address] [place], [place] [address]Dr. Shahbaz Rogel IG # 0.00 10e3/ul Normal 0.00-0.03 [facility] Comment on above: Performed By: #### C BC ####[facility] Drjbkceovb054[address] [place], [place] [address]Dr. Shahbaz Rogel IG % 0.0 % Normal 0.0-0.5 [facility] Comment on above: Performed By: #### C BC ####[facility] Cggwlbcskx8[address] [place], [place] [address]Dr. Shahbaz Rogel LYMPH # 0.6 103/ul Critically low 1.2-3.8 [facility] Comment on above: Performed By: #### C BC ####[facility] [address]florvqzw2[address] [place] [id number]. Shahbaz Rogel Lymphocytes/100 WBC (Bld) 14.2 % Critically low 20.5-60.0 [facility] Comment on above: Performed By: #### C BC ####[facility] Sbvvuvidkp4693 [place] [id number]. Lilajarrod Rogel MANUAL DIFF REQ NO Normal [facility] Comment on above: Performed By: #### C BC ####[facility] [address]fom[address]iga[address] [place] [id number]. Shahbaz Juan F MCH (RBC) [Entitic mass] 27.7 pg Normal 26.7-34.0 [facility] Comment on above: Performed By: #### C BC ####[facility] Ejjvgedpac374[address] [place], [place] [address]Dr. Shahbaz Juan F MCHC (RBC) [Mass/Vol] 30.9 g/dL Normal 29.9-35.2 [facility] Comment on above: Performed By: #### C BC ####[facility] U[address]fzxcstx[address] [place], [place] [address]Dr. Shahbaz Juan F MCV (RBC) [Entitic vol] 89.6 fL Normal 81.0-99.0 [facility] Comment on above: Performed By: #### C BC ####[facility] Wmwutxntwp0784 [place] [address]Dr. Shahbaz Rogel MONO # 0.0 103/ul Critically low 0.3-0.8 [facility] Comment on above: Performed By: #### C BC ####[facility] Ntpzafdnus[address] [place], [place] [address]Dr. Lilajarrod Rogel Monocytes/100 WBC (Bld) 1.0 % Critically low 1.7-12.0 [facility] Comment on above: Performed By: #### C BC ####[facility] [address]ivwe[address] [place], [place] [id number]. Shahbaz Rogel NEUT # 3.5 103/ul Normal 1.4-6.5 [facility] Comment on above: Performed By: #### C BC ####[facility] Center [address] [place] [id number]. Shahbaz Rogel Neutrophils/100 WBC (Bld) 84.8 % Critically high 43.0-75.0 [facility] Comment on above: Performed By: #### C BC ####[facility] [address] [place] [address]Dr. Shahbaz Rogel Platelet mean volume (Bld) [Entitic vol] 9.8 fL Normal 9.5-13.5 [facility] Comment on above: Performed By: #### C BC ####[facility] [address]ffpgyn[address] [place] [address]Dr. Shahbaz Rogel PLT 185 103/ul Normal 150-450 [facility] Comment on above: Performed By: #### C BC ####[facility] Aclxjwdjs[address] [place], [place] [address]Dr. Shahbaz Rogel RBC 5.17 106/ul Normal 4.20-5.40 [facility] Comment on above: Performed By: #### C BC ####[facility] Imeeyjjgvo[address] [place], [place] [address]Dr. Shahbaz Rogel WBC 4.2 103/ul Normal 4.0-11.0 [facility] Comment on above: Performed By: #### C BC ####[facility] Jejislhyad[address] [place], [place] [address]Dr. Shahbaz Rogel LACTATE/LACTIC ACIDon 2021 Lactate [Moles/Vol] 1.7 mmol/L Normal 0.7-2.0 [facility] Comment on above: Performed By: #### L ACT ####[facility] Jzgfsvejja[address] [place], [place] [address]Dr. Shahbaz Rogel POINT OF CARE GLUCOSEon 01-01 Glucose [Mass/Vol] 173 mg/dL Critically high 74-106 [facility] Comment on above: Performed By: #### P OCGLUC ####[facility] Ifawyqhhfc[address] [place], [place] [address]Dr. Shahbaz Rogel Glucose [Mass/Vol] 181 mg/dL Critically high 74-106 [facility] Comment on above: Performed By: #### P OCGLUC ####[facility] I[address]xryrj[address] [place] [address]Dr. Shahbaz Rogel Glucose [Mass/Vol] 154 mg/dL Critically high 74-106 [facility] Comment on above: Performed By: #### P OCGLUC ####[facility] [address]cmeyqltt[address] [place] [address]Dr. Shahbaz Rogel PROF 14(COMP METB)on 022 Albumin [Mass/Vol] 3.5 g/dL Normal 3.4-5.0 [facility] Comment on above: Performed By: #### B YELLOW PAGES SPACE SALESPERSON, CMP ####[facility] Dzrpmeikjj[address] [place], [place] [address]Dr. Shahbaz Rogel Albumin/Globulin [Mass ratio] 0.9 {ratio} Normal [facility] Comment on above: Performed By: #### B YELLOW PAGES SPACE SALESPERSON, CMP ####[facility] Xnztwhsfkx[address] [place], [place] [address]Dr. Shahbaz Rogel ALP [Catalytic activity/Vol] 107 U/L Normal 46-116 [facility] Comment on above: Performed By: #### B YELLOW PAGES SPACE SALESPERSON, CMP ####[facility] Tqjdafbyyh[address] [place], [place] [address]Dr. Shahbaz Rogel ALT [Catalytic activity/Vol] 18 U/L Normal 14-59 [facility] Comment on above: Performed By: #### B YELLOW PAGES SPACE SALESPERSON, CMP ####[facility] [address]tlozzisix[address] [place] [address]Dr. Shahbaz Rogel Anion gap [Moles/Vol] 14.1 mmol/L Normal [facility] Comment on above: Performed By: #### B YELLOW PAGES SPACE SALESPERSON, CMP ####[facility] Tyqsjjbmbm[address] [place], [place] [address]Dr. Shahbaz Rogel AST [Catalytic activity/Vol] 19 U/L Normal 15-37 [facility] Comment on above: Performed By: #### B YELLOW PAGES SPACE SALESPERSON, CMP ####[facility] Fmiflscnrq[address] [place], [place] [address]Dr. Shahbaz Rogel Bilirubin [Mass/Vol] 0.5 mg/dL Normal 0.2-1.3 [facility] Comment on above: Performed By: #### B YELLOW PAGES SPACE SALESPERSON, CMP ####[facility] Hnjozsvywm[address] [place], [place] [address]Dr. Lilajarrod Juan F Calcium [Mass/Vol] 8.5 mg/dL Normal 8.5-10.1 [facility] Comment on above: Performed By: #### B YELLOW PAGES SPACE SALESPERSON, CMP ####[facility] Iyxskbdpmf[address] [place], [place] [address]Dr. Shahbaz Rogel Chloride [Moles/Vol] 103 mmol/L Normal 98-107 [facility] Comment on above: Performed By: #### B YELLOW PAGES SPACE SALESPERSON, CMP ####[facility] Vjbfggralh[address] [place], [place] [address]Dr. Shahbaz Rogel CO2 [Moles/Vol] 25.4 mmol/L Normal 22.0-30.0 [facility] Comment on above: Performed By: #### B YELLOW PAGES SPACE SALESPERSON, CMP ####[facility] Ljsoxazvld[address] [place], [place] [address]Dr. Shahbaz Rogel Creatinine [Mass/Vol] 1.48 mg/dL Critically high 0.52-1.04 [facility] Comment on above: Performed By: #### B YELLOW PAGES SPACE SALESPERSON, CMP ####[facility] Qixzvgeffg[address] [place], [place] [address]Dr. Shahbaz Rogel EGFR-AF CITIZEN [place] 44 mL/min/1.73m2 Critically low >=60 [facility] Comment on above: Performed By: #### B YELLOW PAGES SPACE SALESPERSON, CMP ####[facility] Xylxrtqwfz[address] [place], [place] [address]Dr. Shahbaz Rogel EGFR-NON AF CITIZEN OF [place] 36 mL/min/1.73m2 Critically low >=60 [facility] Comment on above: Performed By: #### B YELLOW PAGES SPACE SALESPERSON, CMP ####[facility] Zphcvaxibz[address] [place], [place] [address]Dr. Shahbaz Rogel Globulin (S) [Mass/Vol] 3.7 g/dL Normal [facility] Comment on above: Performed By: #### B YELLOW PAGES SPACE SALESPERSON, CMP ####[facility] Zliiknnyrs[address] [place], [place] [address]Dr. Shahbaz Rogel Glucose [Mass/Vol] 203 mg/dL Critically high 74-106 [facility] Comment on above: Performed By: #### B YELLOW PAGES SPACE SALESPERSON, CMP ####[facility] [address]komd[address] [place] [address]Dr. Shahbaz Rogel Potassium [Moles/Vol] 3.5 mmol/L Normal 3.4-5.0 [facility] Comment on above: Performed By: #### B YELLOW PAGES SPACE SALESPERSON, CMP ####[facility] Yvwkbmkohm[address] [place], [place] [address]Dr. Shahbaz Rogel Protein [Mass/Vol] 7.2 g/dL Normal 6.1-8.2 [facility] Comment on above: Performed By: #### B YELLOW PAGES SPACE SALESPERSON, CMP ####[facility] Rlzodsbnjr[address] [place], [place] [address]Dr. Shahbaz Rogel Sodium [Moles/Vol] 139 mmol/L Normal 137-145 [facility] Comment on above: Performed By: #### B YELLOW PAGES SPACE SALESPERSON, CMP ####[facility] Yutpczcbdv[address] [place], [place] [address]Dr. Shahbaz Rogel Urea nitrogen [Mass/Vol] 17.0 mg/dL Normal 7.0-18.0 [facility] Comment on above: Performed By: #### B YELLOW PAGES SPACE SALESPERSON, CMP ####[facility] Irhvgnvycc[address] [place], [place] [address]Dr. Shahbaz Rogel Urea nitrogen/Creatinine [Mass ratio] 11.5 mg/mg Normal [facility] Comment on above: Performed By: #### B YELLOW PAGES SPACE SALESPERSON, CMP ####[facility] Utnpbmlmdx[address] [place], [place] [address]Dr. Shahbaz Rogel BNPon 01-18-2022 Natriuretic peptide B (Bld) [Mass/Vol] 55.0 pg/mL Normal <=900.0 [facility] Comment on above: Performed By: #### C MP, BNP, HSTROPN ####[facility] [address] [place] [address]Dr. Sahhbaz Rogel CBC W MANUAL DIFFon 01-19-20 22 ATYPICAL LYMPH # 0.12 103/ul Normal [facility] Comment on above: Performed By: #### C CAIN ####[facility] [address] [place] [id number]. Shahbaz Rogel ATYPICAL LYMPH % 2 % Normal [facility] Comment on above: Performed By: #### C CAIN ####[facility] [address] [place] [id number]. Yilan Rogel BAND # 0.0 103/ul Normal 0.0-0.3 [facility] Comment on above: Performed By: #### C CAIN ####[facility] [address] [place] [id number]. Yilan Rogel BAND % 0 % Normal 0-5 [facility] Comment on above: Performed By: #### C CAIN ####[facility] [address]fmfp[address] [place] [address]Dr. Shahbaz Rogel BASOM # 0.00 103/ul Normal 0.00-0.10 [facility] Comment on above: Performed By: #### C CAIN ####[facility] Qvgogxsgjk[address] [place], [place] [address]Dr. Shahbaz Rogel BASOM % 0.0 % Critically low 0.2-2.0 [facility] Comment on above: Performed By: #### C CAIN ####[facility] [address]conmtbas[address] [place] [address]Dr. Yilan Rogel BLAST # Normal [facility] Comment on above: Performed By: #### C CAIN ####[facility] [address]se[address] [place] [address]Dr. Yilan Rogel BLAST % Normal [facility] Comment on above: Performed By: #### C CAIN ####[facility] Ovwyvsrtsc[address] [place], [place] [address]Dr. Lilalan Rogel CORRECTED WBC Normal 4.0-11.0 [facility] Comment on above: Performed By: #### C CAIN ####[facility] Qcohoiqevn[address] [place], [place] [address]Dr. Yilan Rogel EOS # 0.25 103/ul Normal 0.00-0.70 [facility] Comment on above: Performed By: #### C CAIN ####[facility] [address] [place], [place] [address]Bc. Shahbaz Rogel EOS% 4.0 % Normal 0.9-7.0 [facility] Comment on above: Performed By: #### C CAIN ####[facility] Y[address]xsdez3[address] [place], [place] [address]Og. Shahbaz Rogel HCT 46.8 % Normal 36.0-48.0 [facility] Comment on above: Performed By: #### C CAIN ####[facility] [address]hwzo[address] [place], [place] [address]Vm. Shahbaz Rogel HGB 14.9 g/dl Normal 12.0-16.0 [facility] Comment on above: Performed By: #### C CAIN ####[facility] [address] [place] [id number]. Shahbaz Rogel LYMPHM # 0.68 103/ul Critically low 1.20-3.80 [facility] Comment on above: Performed By: #### C CAIN ####[facility] Qrvzmwcimh8923 [place] [id number]. Shahbaz Rogel LYMPHM% 11.0 % Critically low 20.5-60.0 [facility] Comment on above: Performed By: #### C CAIN ####[facility] Qyfiszbmkz1875 [place], [place] [address]Lh. Shahbaz Rogel MCH 27.6 pg Normal 26.7-34.0 [facility] Comment on above: Performed By: #### C CAIN ####[facility] Eswgtwuuhz1163 [place], [place] [address]Qi. Shahbaz Rogel MCHC 31.8 g/dl Normal 29.9-35.2 [facility] Comment on above: Performed By: #### C CAIN ####[facility] Pydfavjgeq5074 [place], [place] [address]Bv. Shahbaz Rogel MCV 86.8 fL Normal 81.0-99.0 [facility] Comment on above: Performed By: #### Cheri BARLOW ####[facility] [address]oidtvbckk[address] [place] [id number]. Shahbaz Rogel METAMYELOCYTE # Normal [facility] Comment on above: Performed By: #### C CAIN ####[facility] Nspgrbdali5710 [place] [id number]. Shahbaz Rogel METAMYELOCYTE % Normal [facility] Comment on above: Performed By: #### C CAIN ####[facility] P[address]berz6[address] [place] [id number]. Shahbaz Rogel MONOM# 0.19 103/ul Critically low 0.30-0.80 [facility] Comment on above: Performed By: #### C CAIN ####[facility] Aewhrwmwcr2804 [place] [id number]. Shahbaz Rogel MONOM% 3.0 % Normal 1.7-12.0 [facility] Comment on above: Performed By: #### C CAIN ####[facility] [address]yl[address]ub[address] [place], [place] [id number]. Shahbaz Juan F MPV 9.6 fL Normal 9.5-13.5 [facility] Comment on above: Performed By: #### C CAIN ####[facility] [address]st[address] [place], [place] [address]Dr. Shahbaz Rogel MYELOCYTE # Normal [facility] Comment on above: Performed By: #### C CAIN ####[facility] Ictztdixqv0836 [place] [id number]. Shahbaz Juan F MYELOCYTE % Normal [facility] Comment on above: Performed By: #### C CAIN ####[facility] Om[address]qtaz[address] [place] [id number]. Shahbaz Juan F NRBC Normal [facility] Comment on above: Performed By: #### C CAIN ####[facility] Qxmmfxxipi2954 [place] [id number]. Lilajarrod Juan F PLT 203 103/ul Normal 150-450 [facility] Comment on above: Performed By: #### C CAIN ####[facility] Gdtsjzjrdx17[address] [place] [id number]. Shahbaz Rogel RBC 5.39 106/ul Normal 4.20-5.40 [facility] Comment on above: Performed By: #### Cheri BARLOW ####[facility] S[address]pjbouko[address] [place] [id number]. Shahbaz Rogel RDW 13.7 % Normal 11.0-15.0 [facility] Comment on above: Performed By: #### Cheri BARLOW ####[facility] Z[address]biyahaj[address] [place] [id number]. Shahbaz Rogel SEG # 4.96 103/ul Normal 1.40-6.50 [facility] Comment on above: Performed By: #### Cheri BARLOW ####[facility] M[address]ocvdpvf[address] [place] [id number]. Shahbaz Rogel SEG % 80.0 % Critically high 43.0-75.0 [facility] Comment on above: Performed By: #### Cheri BARLOW ####[facility] Sifmiotydy8754 [place] [id number]. Shahbaz Rogel WBC 6.2 103/ul Normal 4.0-11.0 [facility] Comment on above: Performed By: #### Cheri BARLOW ####[facility] Xsiebwnxyu[address] [place], [place] [id number] Rogel CULTURE BLOODon 01-18-2022 Microscopic examination of blood, culture Culture Observations: No growth at 5 days. Normal [facility] Comment on above: Performed By: #### B LDCX2 ####[facility] Mjqffdfxau[address] [place], [place] [id number]. Shahbaz Rogel Microscopic examination of blood, culture Culture Observations: No growth at 5 days Normal [facility] Comment on above: Performed By: #### B LDCX1 ####[facility] Tawukvmnhy[address] [place], [place] [address]Dr. Shahbaz Rogel Covid-19 PCR (CVDTB)on 12-31 SARS-CoV-2 (COVID-19) RNA PAVAN+probe Ql (Unsp spec) Not detected Normal NOT DETECTED [facility] Comment on above: Result Comment: This test is not yet approved or cleared by the [place] FDA. When there are no FDA-approved or cleared tests available, and other criteria are met, FDA can make tests available under an emergency access mechanism called an Emergency Use Authorization (EUA). The EUA for this test is supported by the [employer] Hel[employer] of Health and Human Service's (HHS's) [...] with SARS-CoV-2. Performed By: #### C VDTBH ####[facility] [address] [place] [address]Dr. Shahbaz Rogel D-DIMERon 01-18-2022 D-DIMER 0.29 mg/L FEU Normal 0.19-0.50 [facility] Comment on above: Performed By: #### D DIM ####[facility] [address]cjl[address] [place] [address]Dr. Shahbaz Rogel D-DIMER COMMENTS SEE BELOW Normal [facility] Comment on above: Result Comment: [...] generalized hospitalization. Performed By: #### D DIM ####[facility] [address]qvcqc[address] [place] [address]Dr. Shahbaz Rogel INFLUENZA A AND B AGon 01-18 INFLUANEGH SEE BELOW Normal [facility] Comment on above: Result Comment: Nega tive for Flu A protein angiten. Infection due to Flu A cannot be ruled out. Flu A angiten in the sample may be below the detection limit of the test. Performed By: #### I NFLUAB ####[facility] V[address]rhutwq[address] [place], [place] [address]Dr. Shahbaz Rogel INFLUBNEGH SEE BELOW Normal [facility] Comment on above: Result Comment: Nega tive for Flu B protein antigen. Infection due to Flu B cannot be ruled out. Flu B antigen in the sample may be below the detection limit of the test. Performed By: #### I NFLUAB ####[facility] [address]qo[address] [place], [place] [address]Dr. Shahbaz Rogel INFLUENZA A AG Negative Normal NEGATIVE SEE COMMENT [facility] Comment on above: Performed By: #### I NFLUAB ####[facility] [address]cnkaolgo[address] [place], [place] [address]Dr. Shahbaz Rogel INFLUENZA B AG Negative Normal NEGATIVE SEE COMMENT [facility] Comment on above: Performed By: #### I NFLUAB ####[facility] Owltxtnogi[address] [place], [place] [address]Dr. Shahbaz Rogel INTERNAL CONTROLS Within Normal Limits Normal Wi thin Normal Limits [facility] Comment on above: Performed By: #### I NFLUAB ####[facility] [address]evpxtlaeu[address] [place], [place] [address]Dr. Shahbaz Rogel LACTATE/LACTIC ACIDon 2021 Lactate [Moles/Vol] 1.0 mmol/L Normal 0.7-2.0 [facility] Comment on above: Performed By: #### L ACT ####[facility] [address]alxwedwh[address] [place], [place] [address]Dr. Shahbaz Rogel PROF 14(COMP METB)on 022 Albumin [Mass/Vol] 3.8 g/dL Normal 3.4-5.0 [facility] Comment on above: Performed By: #### C MP, BNP, HSTROPN ####[facility] [address]amgrsjm[address] [place], [place] [address]Dr. Shahbaz Rogel Albumin/Globulin [Mass ratio] 1.0 {ratio} Normal [facility] Comment on above: Performed By: #### C MP, BNP, HSTROPN ####[facility] [address]iv[address]coiqsv[address] [place] [address]Dr. Shahbaz Rogel ALP [Catalytic activity/Vol] 116 U/L Normal 46-116 [facility] Comment on above: Performed By: #### C MP, BNP, HSTROPN ####[facility] [address]cwweykhjw6[address] [place] [address]Dr. Shahbaz Rogel ALT [Catalytic activity/Vol] 16 U/L Normal 14-59 [facility] Comment on above: Performed By: #### C MP, BNP, HSTROPN ####[facility] Zubwclvrpr7539 [place] [address]Dr. Shahbaz Rogel Anion gap [Moles/Vol] 9.4 mmol/L Normal [facility] Comment on above: Performed By: #### C MP, BNP, HSTROPN ####[facility] Fsdaitxfzc[address] [place], [place] [address]Dr. Shahbaz Rogel AST [Catalytic activity/Vol] 19 U/L Normal 15-37 [facility] Comment on above: Performed By: #### C MP, BNP, HSTROPN ####[facility] Covoijrogv[address] [place], [place] [address]Dr. Shahbaz Rogel Bilirubin [Mass/Vol] 0.5 mg/dL Normal 0.2-1.3 [facility] Comment on above: Performed By: #### C MP, BNP, HSTROPN ####[facility] Zxmanidptp[address] [place], [place] [address]Dr. Shahbaz Rogel Calcium [Mass/Vol] 8.9 mg/dL Normal 8.5-10.1 [facility] Comment on above: Performed By: #### C MP, BNP, HSTROPN ####[facility] [address]vpvbcg[address] [place], [place] [address]Dr. Shahbaz Rogel Chloride [Moles/Vol] 104 mmol/L Normal 98-107 [facility] Comment on above: Performed By: #### C MP, BNP, HSTROPN ####[facility] Rs[address]woeyn[address] [place] [address]Dr. Shahbaz Rogel CO2 [Moles/Vol] 27.2 mmol/L Normal 22.0-30.0 [facility] Comment on above: Performed By: #### C MP, BNP, HSTROPN ####[facility] [address]fqzgjhbpu[address]682 [place] [address]Dr. Shahbaz Rogel Creatinine [Mass/Vol] 0.99 mg/dL Normal 0.52-1.04 [facility] Comment on above: Performed By: #### C MP, BNP, HSTROPN ####[facility] [address]ozwgdce[address] [place], [place] [address]Dr. Shahbaz Rogel EGFR-AF CITIZEN [place] >60 Normal >=60 [facility] Comment on above: Performed By: #### C MP, BNP, HSTROPN ####[facility] [address]bupgof[address] [place], [place] [address]Dr. Shahbaz Rogel EGFR-NON AF CITIZEN OF [place] 58 mL/min/1.73m2 Critically low >=60 [facility] Comment on above: Performed By: #### C MP, BNP, HSTROPN ####[facility] Fseefipobn[address] [place], [place] [address]Dr. Shahbaz Rogel Globulin (S) [Mass/Vol] 3.8 g/dL Normal [facility] Comment on above: Performed By: #### C MP, BNP, HSTROPN ####[facility] Ccefmxfjns[address] [place], [place] [address]Dr. Shahbaz Rogel Glucose [Mass/Vol] 104 mg/dL Normal 74-106 [facility] Comment on above: Performed By: #### C MP, BNP, HSTROPN ####[facility] Yqicdsokdq[address] [place], [place] [address]Dr. Shahbaz Rogel Potassium [Moles/Vol] 3.6 mmol/L Normal 3.4-5.0 [facility] Comment on above: Performed By: #### C MP, BNP, HSTROPN ####[facility] [address]cruszduc[address] [place], [place] [address]Dr. Shahbaz Rogel Protein [Mass/Vol] 7.6 g/dL Normal 6.1-8.2 [facility] Comment on above: Performed By: #### C MP, BNP, HSTROPN ####[facility] Enirlpmqhh[address] [place] [address]Dr. Shahbaz Rogel Sodium [Moles/Vol] 137 mmol/L Normal 137-145 [facility] Comment on above: Performed By: #### C MP, BNP, HSTROPN ####[facility] Lbubciggzx9[address] [place] [address]Dr. Shahbaz Rogel Urea nitrogen [Mass/Vol] 9.0 mg/dL Normal 7.0-18.0 [facility] Comment on above: Performed By: #### C MP, BNP, HSTROPN ####[facility] [address]xyqtvskde2684 [place] [address]Dr. Shahbaz Rogel Urea nitrogen/Creatinine [Mass ratio] 9.1 mg/mg Normal [facility] Comment on above: Performed By: #### C MP, BNP, HSTROPN ####[facility] T[address]jmsshbl[address] [place] [address]Dr. Shahbaz Rogel TROPONIN, HIGH SENSITIVITYon 01-18-2022 HSTROP 6.4 pg/mL Normal 4.0-35.5 [facility] Comment on above: Result Comment: CUT- OFF POINTS HAVE BEEN ESTABLISHED BASED ON THE FOURTH UNIVERSAL DEFINITIONS OF MYOCARDIALINFARCTION. THE UPPER REFERENCE LIMIT (URL) OF TROPONIN, DEFINED THE 99TH PERCENTILE OFcTnI DISTRIBUTION IN A REFERENCE POPULATION, HAS BEEN CONFIRMED THE DECISION THRESHOLDFOR IN DIAGNOSIS. Performed By: #### C MP, BNP, HSTROPN ####[facility] [address] [place] [address]Dr. Shahbaz Rogel XR CHEST 2 Von 01-18-2022 XR CHEST 2 V Normal [facility] URINALYSIS REFLEXon 04-04-20 20 Appearance (U) CLEAR Normal CLEAR [facility] Comment on above: Order Comment: No: D o not add to previous draw Performed By: #### 1 0070, 26713, 99018, 73327, 28615, 61773 #### [facility] [address] [place] [address], [place] Bilirubin [Mass/Vol] Negative Normal NEGATIVE [facility] Comment on above: Order Comment: No: D o not add to previous draw Performed By: #### 1 0070, 07200, 18799, 75185, 79483, 95291 #### [facility] [address] [place] [address], [place] BLOOD Negative Normal NEGATIVE [facility] Comment on above: Order Comment: No: D o not add to previous draw Performed By: #### 1 0070, 13390, 03374, 41667, 45639, 75182 #### [facility] [address] [place] [address], [place] Color (U) YELLOW Normal YELLOW [facility] Comment on above: Order Comment: No: D o not add to previous draw Performed By: #### 1 0070, 15699, 15042, 48149, 75786, 14265 #### [facility] [address] [place] [address], [place] Glucose [Mass/Vol] Negative Normal NEGATIVE [facility] Comment on above: Order Comment: No: D o not add to previous draw Performed By: #### 1 0070, 71026, 40198, 10068, 76843, 15893 #### [facility] [address] [place] [address], [place] KETONE Negative Normal NEGATIVE [facility] Comment on above: Order Comment: No: D o not add to previous draw Performed By: #### 1 0070, 36809, 12653, 91034, 39455, 44021 #### [facility] [address] [place] [address], [place] LEUK ELIU Negative Normal NEGATIVE [facility] Comment on above: Order Comment: No: D o not add to previous draw Performed By: #### 1 0070, 33728, 35430, 34647, 34535, 41361 #### [facility] [address] [place] [address], [facility] MICRO NOT DONE Normal [facility] Comment on above: Order Comment: No: D o not add to previous draw Result Comment: Micr oscopics not performed on urines with negative chemical reactions unless requested in original order Performed By: #### 1 0070, 64476, 67333, 33819, 67288, 33639 #### [facility] [address] [place] [address], [facility] Nitrite Ql (U) Negative Normal NEGATIVE [facility] Comment on above: Order Comment: No: D o not add to previous draw Performed By: #### 1 0070, 02860, 32444, 28965, 89229, 49933 #### [facility] [address] [place] [address], [facility] pH (Bld) 5.0 Normal 5.0-8.0 [facility] Comment on above: Order Comment: No: D o not add to previous draw Performed By: #### 1 0070, 10384, 69776, 93064, 13893, 75210 #### [facility] [address] [place] [address], [facility] Protein (U) [Mass/Vol] Negative Normal NEGATIVE Th [facility] Comment on above: Order Comment: No: D o not add to previous draw Performed By: #### 1 0070, 43447, 99365, 25926, 22240, 47971 #### [facility] [address] [place] [address], [place] SPEC GRAV 1.012 Low 1.015-1.02 0 [facility] Comment on above: Order Comment: No: D o not add to previous draw Performed By: #### 1 0070, 50441, 13847, 78262, 46421, 74992 #### [facility] [address] [place] [address], [place] BASIC METABOLIC PANELon 07-0 -2020 Calcium [Mass/Vol] 8.4 mg/dL Low 8.6-10.3 [facility] Comment on above: Order Comment: No: D o not add to previous draw Performed By: #### 1 0070, 50542, 30732, 93722, 63068, 11750 #### [facility] [address] [place] [address], [place] Chloride [Moles/Vol] 101 mmol/L Normal 98-107 [facility] Comment on above: Order Comment: No: D o not add to previous draw Performed By: #### 1 0070, 03426, 00643, 29774, 43219, 89294 #### [facility] [address] [place] [address], [place] CO2 [Moles/Vol] 29 mmol/L Normal 21-31 [facility] Comment on above: Order Comment: No: D o not add to previous draw Performed By: #### 1 0070, 48598, 95074, 84550, 97880, 89459 #### [facility] [address] [place] [address], [place] Creatinine [Mass/Vol] 0.79 mg/dL Normal 0.60-1.20 [facility] Comment on above: Order Comment: No: D o not add to previous draw Performed By: #### 1 0070, 38240, 64107, 10723, 71387, 42792 #### [facility] [address] [place] [address], [place] GFR/1.73 sq M predicted among blacks MDRD (S/P/Bld) [Vol rate/Area] mL/min/{1.73_m2} Normal >60 [facility] Comment on above: Order Comment: No: D o not add to previous draw Performed By: #### 1 0070, 97879, 99431, 97516, 42894, 82681 #### [facility] [address] [place] [address], [place] GFR/1.73 sq M predicted among non-blacks MDRD (S/P/Bld) [Vol rate/Area] mL/min/{1.73_m2} Normal >60 [facility] Comment on above: Order Comment: No: D o not add to previous draw Performed By: #### 1 0070, 18492, 87782, 08881, 10070, 11888 #### [facility] [address] [place] [address], [facility] Glucose [Mass/Vol] 91 mg/dL Normal 70-100 [facility] Comment on above: Order Comment: No: D o not add to previous draw Performed By: #### 1 0070, 29005, 53402, 94690, 07317, 86926 #### [facility] [address] [place] [address], [facility] Potassium [Moles/Vol] 3.9 mmol/L Normal 3.5-5.1 [facility] Comment on above: Order Comment: No: D o not add to previous draw Performed By: #### 1 0070, 68277, 25188, 17383, 64441, 96352 #### [facility] [address] [place] [address], [facility] Sodium [Moles/Vol] 133 mmol/L Low 136-145 [facility] Comment on above: Order Comment: No: D o not add to previous draw Performed By: #### 1 0070, 73162, 46068, 38862, 58325, 00425 #### [facility] [address] [place] [address], [facility] Urea nitrogen [Mass/Vol] 10 mg/dL Normal 7-25 [facility] Comment on above: Order Comment: No: D o not add to previous draw Performed By: #### 1 0070, 47709, 82556, 97382, 43690, 00645 #### [facility] [address] [place] [address], [facility] CBC W/DIFFon 04-02-2020 ABS BASOPHILS 0.0 10*3/uL Normal 0.0-0.2 [facility] Comment on above: Order Comment: No: D o not add to previous draw Performed By: #### 1 0070, 99571, 16438, 79990, 08116, 47619 #### [facility] [address] [place] [address], [facility] ABS IMM GRANS 0.0 10*3/uL Normal 0.0-0.2 [facility] Comment on above: Order Comment: No: D o not add to previous draw Performed By: #### 1 0070, 46366, 38535, 40154, 39100, 11743 #### [facility] [address] [place] [address], [facility] ABS NEUTROPHILS 4.5 10*3/uL Normal 1.6-7.6 [facility] Comment on above: Order Comment: No: D o not add to previous draw Performed By: #### 1 0070, 63614, 05748, 46945, 07836, 93065 #### [facility] [address] [place] [address], [facility] Basophils/100 WBC (Bld) 0.2 % Normal 0.0-1.0 [facility] Comment on above: Order Comment: No: D o not add to previous draw Performed By: #### 1 0070, 15963, 89221, 94219, 43896, 78364 #### [facility] [address] [facility] [place] [address], [facility] Eosinophils (Bld) [#/Vol] 0.2 10*3/uL Normal 0.0-0.5 [facility] Comment on above: Order Comment: No: D o not add to previous draw Performed By: #### 1 0070, 42186, 10935, 96439, 51465, 31608 #### [facility] [address] [place] [address], [facility] Eosinophils/100 WBC (Bld) 3.6 % Normal 0.0-6.0 [facility] Comment on above: Order Comment: No: D o not add to previous draw Performed By: #### 1 0070, 50757, 42638, 55474, 60148, 71193 #### [facility] [address] Erythrocyte distribution width (RBC) [Ratio] 12.7 % Normal 11.5-15.0 [facility] Comment on above: Order Comment: No: D o not add to previous draw Performed By: #### 1 0070, 68936, 58947, 22055, 71340, 42898 #### [facility] [address] Hematocrit (Bld) [Volume fraction] 42.9 % Normal 36.0-45.0 [facility] Comment on above: Order Comment: No: D o not add to previous draw Performed By: #### 1 0070, 71141, 16743, 34673, 48679, 84852 #### [facility] [address] Hemoglobin (Bld) [Mass/Vol] 13.5 g/dL Normal 12.0-15.0 [facility] Comment on above: Order Comment: No: D o not add to previous draw Performed By: #### 1 0070, 73671, 84838, 63048, 31056, 38946 #### [facility] [address] [place] [address], [facility] IMMATURE GRANS 0.3 % Normal 0.0-1.0 [facility] Comment on above: Order Comment: No: D o not add to previous draw Performed By: #### 1 0070, 58910, 30662, 78321, 41997, 13667 #### [facility] [address] [place] [address], [facility] Lymphocytes (Bld) [#/Vol] 1.1 10*3/uL Low 1.2-4.0 [facility] Comment on above: Order Comment: No: D o not add to previous draw Performed By: #### 1 0070, 84809, 25997, 87004, 61045, 05618 #### [facility] [address] [place] [address], [facility] Lymphocytes/100 WBC (Bld) 18.0 % Low 20.0-45.0 [facility] Comment on above: Order Comment: No: D o not add to previous draw Performed By: #### 1 0070, 16678, 08496, 91879, 65700, 72727 #### [facility] [address] [place] [address], [facility] MCH (RBC) [Entitic mass] 27.4 pg Normal 27.0-33.0 [facility] Comment on above: Order Comment: No: D o not add to previous draw Performed By: #### 1 0070, 35869, 32329, 29069, 46147, 31910 #### [facility] [address] MCHC (RBC) [Mass/Vol] 31.5 g/dL Low 32.0-35.0 [facility] Comment on above: Order Comment: No: D o not add to previous draw Performed By: #### 1 0070, 21737, 85307, 05565, 67990, 91295 #### [facility] [address] [place] [address], [facility] MCV (RBC) [Entitic vol] 87.0 fL Normal 82.0-98.0 [facility] Comment on above: Order Comment: No: D o not add to previous draw Performed By: #### 1 0070, 17178, 25796, 45984, 44642, 02314 #### [facility] [address] [place] [address], [facility] Monocytes (Bld) [#/Vol] 0.3 10*3/uL Normal 0.1-1.0 [facility] Comment on above: Order Comment: No: D o not add to previous draw Performed By: #### 1 0070, 76506, 54064, 12853, 08712, 63632 #### [facility] [address] [place] [address], [facility] MONOS 5.5 % Normal 5.0-12.0 [facility] Comment on above: Order Comment: No: D o not add to previous draw Performed By: #### 1 0070, 11333, 28932, 80766, 82105, 54605 #### [facility] [address] [place] [address], [facility] Neutrophils/100 WBC (Bld) 72.4 % High 40.0-72.0 [facility] Comment on above: Order Comment: No: D o not add to previous draw Performed By: #### 1 0070, 85880, 50910, 48223, 41874, 86471 #### [facility] [address] Nucleated RBC/100 WBC (Bld) [Ratio] 0 % Normal 0-0 [facility] Comment on above: Order Comment: No: D o not add to previous draw Performed By: #### 1 0070, 53813, 36117, 11703, 76659, 71025 #### [facility] [address] [place] [address], [facility] PLAT CNT 264 10*3/uL Normal 150-400 [facility] Comment on above: Order Comment: No: D o not add to previous draw Performed By: #### 1 0070, 58368, 68994, 38835, 99737, 41032 #### [facility] [address] [place] [address], [facility] RBC (Bld) [#/Vol] 4.93 10*6/uL Normal 3.80-5.00 [facility] Comment on above: Order Comment: No: D o not add to previous draw Performed By: #### 1 0070, 13233, 00869, 41063, 06868, 46558 #### [facility] [address] [facility] [address] WBC (Bld) [#/Vol] 6.17 10*3/uL Normal 4.00-10.60 [facility] Comment on above: Order Comment: No: D o not add to previous draw Performed By: #### 1 0070, 30870, 92533, 49872, 90313, 50773 #### [facility] [address] [facility] [address] MAGNESIUM BLOODon 04-02-2020 Magnesium [Mass/Vol] 2.0 mg/dL Normal 1.9-2.7 [facility] Comment on above: Order Comment: No: D o not add to previous draw Performed By: #### 1 0070, 15995, 86350, 65215, 62756, 78575 #### [facility] [address] [facility] PHOSPHORUS BLOODon 0 Phosphate [Mass/Vol] 3.1 mg/dL Normal 2.5-5.0 [facility] Comment on above: Order Comment: No: D o not add to previous draw Performed By: #### 1 0070, 76969, 69793, 69648, 99109, 15261 #### [facility] [address] [facility] [address] POC GLUCOSE LABon 04-02-2020 Glucose [Mass/Vol] 134 mg/dL High 70-100 [facility] Comment on above: Performed By: #### 1 0070, 84179, 36660, 68103, 87930, 41702 #### [facility] [address] [facility]. [address] UFH HEPARIN ASSAYon 04-02-20 20 UNFRACTIONATED HEPARIN 0.91 IU/mL Critically high 0.30-0.7 0 [facility] Comment on above: Result Comment: [place] roxaban and Apixaban will interfere with the anti Xa assay used to monitor UFH and LMWH. RESULTS CHECKED AND CALLED. ACCURATELY READ BACK BY LYNN POLANCO, RN @ 3669 Performed By: #### 1 0070, 53296, 10055, 39165, 14448, 05637 #### [facility] [address] [place] [address], [facility] ALBUMIN BLOODon 04-01-2020 Albumin [Mass/Vol] 3.0 g/dL Low 3.5-5.7 [facility] Comment on above: Performed By: #### 1 0070, 33552, 07484, 80490, 48639, 84150 #### [facility] [address] [place] [address], [facility] BASIC METABOLIC PANELon Calcium [Mass/Vol] 8.1 mg/dL Low 8.6-10.3 [facility] Comment on above: Order Comment: No: D o not add to previous draw Performed By: #### 1 0070, 98319, 36066, 83962, 56969, 54154 #### [facility] [address] [place] [address], [place] Chloride [Moles/Vol] 105 mmol/L Normal 98-107 [facility] Comment on above: Order Comment: No: D o not add to previous draw Performed By: #### 1 0070, 40397, 73024, 50163, 33085, 72143 #### [facility] [address] [place] [address], [place] CO2 [Moles/Vol] 26 mmol/L Normal 21-31 [facility] Comment on above: Order Comment: No: D o not add to previous draw Performed By: #### 1 0070, 90522, 76366, 06150, 49903, 92417 #### [facility] [address] [place] [address], [place] Creatinine [Mass/Vol] 0.65 mg/dL Normal 0.60-1.20 [facility] Comment on above: Order Comment: No: D o not add to previous draw Performed By: #### 1 0070, 37928, 97308, 37708, 49598, 85911 #### [facility] [address] [place] [address], [place] GFR/1.73 sq M predicted among blacks MDRD (S/P/Bld) [Vol rate/Area] mL/min/{1.73_m2} Normal >60 [facility] Comment on above: Order Comment: No: D o not add to previous draw Performed By: #### 1 0070, 94682, 21947, 02544, 11787, 43246 #### [facility] [address] [place] [address], [facility] GFR/1.73 sq M predicted among non-blacks MDRD (S/P/Bld) [Vol rate/Area] mL/min/{1.73_m2} Normal >60 [facility] Comment on above: Order Comment: No: D o not add to previous draw Performed By: #### 1 0070, 17540, 13712, 38500, 85212, 83358 #### [facility] [address] [place] [address], [place] Glucose [Mass/Vol] 87 mg/dL Normal 70-100 [facility] Comment on above: Order Comment: No: D o not add to previous draw Performed By: #### 1 0070, 17564, 38945, 00900, 61175, 75226 #### [facility] [address] [place] [address], [place] Potassium [Moles/Vol] 4.3 mmol/L Normal 3.5-5.1 [facility] Comment on above: Order Comment: No: D o not add to previous draw Performed By: #### 1 0070, 70092, 76303, 01408, 79212, 41523 #### [facility] [address] [place] [address], [place] Sodium [Moles/Vol] 136 mmol/L Normal 136-145 [facility] Comment on above: Order Comment: No: D o not add to previous draw Performed By: #### 1 0070, 50377, 52212, 42360, 93481, 18416 #### [facility] [address] Urea nitrogen [Mass/Vol] 8 mg/dL Normal 7-25 [facility] Comment on above: Order Comment: No: D o not add to previous draw Performed By: #### 1 0070, 37820, 16861, 25218, 76673, 63013 #### [facility] [address] CBC W/DIFFon 04-01-2020 ABS BASOPHILS 0.0 10*3/uL Normal 0.0-0.2 [facility] Comment on above: Order Comment: No: D o not add to previous draw Performed By: #### 1 0070, 29748, 55592, 42464, 58938, 12187 #### [facility] [address] ABS IMM GRANS 0.0 10*3/uL Normal 0.0-0.2 [facility] Comment on above: Order Comment: No: D o not add to previous draw Performed By: #### 1 0070, 42566, 37704, 69038, 96387, 80181 #### [facility] [address] [facility]. [address] ABS NEUTROPHILS 3.4 10*3/uL Normal 1.6-7.6 [facility] Comment on above: Order Comment: No: D o not add to previous draw Performed By: #### 1 0070, 91837, 17431, 15203, 13243, 04527 #### [facility] [address] Basophils/100 WBC (Bld) 0.2 % Normal 0.0-1.0 [facility] Comment on above: Order Comment: No: D o not add to previous draw Performed By: #### 1 0070, 18256, 15490, 88097, 99097, 30172 #### [facility] [address] [place] [address], [facility] Eosinophils (Bld) [#/Vol] 0.1 10*3/uL Normal 0.0-0.5 [facility] Comment on above: Order Comment: No: D o not add to previous draw Performed By: #### 1 0070, 23077, 60814, 21990, 69159, 44211 #### [facility] [address] [place] [address], [facility] Eosinophils/100 WBC (Bld) 2.6 % Normal 0.0-6.0 [facility] Comment on above: Order Comment: No: D o not add to previous draw Performed By: #### 1 0070, 02937, 44626, 46447, 01115, 65827 #### [facility] [address] Erythrocyte distribution width (RBC) [Ratio] 13.0 % Normal 11.5-15.0 [facility] Comment on above: Order Comment: No: D o not add to previous draw Performed By: #### 1 0070, 48420, 71629, 92112, 46463, 70033 #### [facility] [address] [place] [address], [facility] Hematocrit (Bld) [Volume fraction] 40.9 % Normal 36.0-45.0 [facility] Comment on above: Order Comment: No: D o not add to previous draw Performed By: #### 1 0070, 77023, 96586, 30617, 69394, 28253 #### [facility] [address] [place] [id number], [facility] Hemoglobin (Bld) [Mass/Vol] 12.8 g/dL Normal 12.0-15.0 [facility] Comment on above: Order Comment: No: D o not add to previous draw Performed By: #### 1 0070, 34697, 51064, 78070, 60586, 46445 #### [facility] [address] [facility] [place] [address], [facility] IMMATURE GRANS 0.6 % Normal 0.0-1.0 [facility] Comment on above: Order Comment: No: D o not add to previous draw Performed By: #### 1 0070, 70020, 34341, 22938, 31418, 79308 #### [facility] [address] [place] [address], [facility] Lymphocytes (Bld) [#/Vol] 1.2 10*3/uL Normal 1.2-4.0 [facility] Comment on above: Order Comment: No: D o not add to previous draw Performed By: #### 1 0070, 81349, 32383, 06214, 29845, 52764 #### [facility] [address] [place] [address], [facility] Lymphocytes/100 WBC (Bld) 23.7 % Normal 20.0-45.0 [facility] Comment on above: Order Comment: No: D o not add to previous draw Performed By: #### 1 0070, 63568, 20404, 32436, 96959, 50763 #### [facility] [address] [place] [address], [facility] MCH (RBC) [Entitic mass] 27.4 pg Normal 27.0-33.0 [facility] Comment on above: Order Comment: No: D o not add to previous draw Performed By: #### 1 0070, 51834, 09391, 11514, 57399, 52720 #### [facility] [address] [place] [address], [facility] MCHC (RBC) [Mass/Vol] 31.3 g/dL Low 32.0-35.0 [facility] Comment on above: Order Comment: No: D o not add to previous draw Performed By: #### 1 0070, 63787, 41289, 25550, 52533, 08081 #### [facility] [address] [facility] [place] [place] [address], [facility] MCV (RBC) [Entitic vol] 87.6 fL Normal 82.0-98.0 [facility] Comment on above: Order Comment: No: D o not add to previous draw Performed By: #### 1 0070, 22793, 95421, 62379, 29877, 30861 #### [facility] [address] [place] [address], [facility] Monocytes (Bld) [#/Vol] 0.3 10*3/uL Normal 0.1-1.0 [facility] Comment on above: Order Comment: No: D o not add to previous draw Performed By: #### 1 0070, 74156, 22364, 50504, 31721, 27639 #### [facility] [address] MONOS 5.4 % Normal 5.0-12.0 [facility] Comment on above: Order Comment: No: D o not add to previous draw Performed By: #### 1 0070, 29615, 11700, 71941, 47717, 33833 #### [facility] [address] [place] [address], [facility] Neutrophils/100 WBC (Bld) 67.5 % Normal 40.0-72.0 [facility] Comment on above: Order Comment: No: D o not add to previous draw Performed By: #### 1 0070, 91813, 49127, 97627, 25508, 33594 #### [facility] [address] [place] [address], [facility] Nucleated RBC/100 WBC (Bld) [Ratio] 0 % Normal 0-0 [facility] Comment on above: Order Comment: No: D o not add to previous draw Performed By: #### 1 0070, 20914, 85649, 08717, 68822, 56136 #### [facility] [address] [facility] [address], [facility] PLAT CNT 237 10*3/uL Normal 150-400 [facility] Comment on above: Order Comment: No: D o not add to previous draw Performed By: #### 1 0070, 77276, 15092, 31311, 06832, 84957 #### [facility] [address] [facility] [place] [address], [facility] RBC (Bld) [#/Vol] 4.67 10*6/uL Normal 3.80-5.00 [facility] Comment on above: Order Comment: No: D o not add to previous draw Performed By: #### 1 0070, 16162, 49468, 11251, 60190, 02119 #### [facility] [address] [facility] [place] [address], [facility] WBC (Bld) [#/Vol] 4.98 10*3/uL Normal 4.00-10.60 [facility] Comment on above: Order Comment: No: D o not add to previous draw Performed By: #### 1 0070, 00888, 61717, 76420, 90342, 65595 #### [facility] [address] CHEST AND LATERALon 04-01-20 CHEST AND LATERAL [facility] Department of Radiology [address] [place] [address] [id number] Patient Name: EMIGDIO ELI : 1965 Sex: F Age: Race: White Pt. Location: [id number] Patient Status: I Ordered Date: 04/01/2020 7:00:00 [...] reports Electronically signed: Shari Salcedo. Transcribed by: [email or web address], User Resident: ANNE VEGA Electronically Signed by: SHARI SALCEDO @ 04/01/2020 10:12 AM I personally read this/these film(s) with this resident Normal [facility] Comment on above: Order Comment: No: D o not add to previous draw MAGNESIUM BLOODon 04-01-2020 Magnesium [Mass/Vol] 2.1 mg/dL Normal 1.9-2.7 [facility] Comment on above: Order Comment: No: D o not add to previous draw Performed By: #### 1 0070, 68203, 72885, 03646, 62272, 94497 #### [facility] [address] APTTon 03-31-2020 aPTT Coag (Bld) [Time] 28.3 s Normal 25.0-35.0 Th [facility] Comment on above: Order Comment: No: [...] THIS PURPOSE. Performed By: #### 1 0070, 47511, 60169, 07448, 48419, 90754 #### [facility] [address] BASIC METABOLIC PANELon 03-04 Calcium [Mass/Vol] 7.8 mg/dL Low 8.6-10.3 [facility] Comment on above: Order Comment: No: D o not add to previous draw Performed By: #### 1 0070, 85388, 98792, 72814, 44750, 90465 #### [facility] [address] [place] [address], [facility] Chloride [Moles/Vol] 108 mmol/L High 98-107 [facility] Comment on above: Order Comment: No: D o not add to previous draw Performed By: #### 1 0070, 70536, 45910, 19476, 57335, 99769 #### [facility] [address] [place] [address], [facility] CO2 [Moles/Vol] 26 mmol/L Normal 21-31 [facility] Comment on above: Order Comment: No: D o not add to previous draw Performed By: #### 1 0070, 18053, 10307, 82846, 65817, 87747 #### [facility] [address] [place] [address], [facility] Creatinine [Mass/Vol] 0.76 mg/dL Normal 0.60-1.20 [facility] Comment on above: Order Comment: No: D o not add to previous draw Performed By: #### 1 0070, 04270, 26878, 61855, 21062, 65877 #### [facility] [address] [place] [address], [place] GFR/1.73 sq M predicted among blacks MDRD (S/P/Bld) [Vol rate/Area] mL/min/{1.73_m2} Normal >60 [facility] Comment on above: Order Comment: No: D o not add to previous draw Performed By: #### 1 0070, 35629, 53528, 78919, 31900, 22793 #### [facility] [address] [place] [address], [facility] GFR/1.73 sq M predicted among non-blacks MDRD (S/P/Bld) [Vol rate/Area] mL/min/{1.73_m2} Normal >60 [facility] Comment on above: Order Comment: No: D o not add to previous draw Performed By: #### 1 0070, 33020, 43617, 43860, 02615, 96765 #### [facility] [address] [place] [address], [place] Glucose [Mass/Vol] 97 mg/dL Normal 70-100 [facility] Comment on above: Order Comment: No: D o not add to previous draw Performed By: #### 1 0070, 71888, 79128, 44181, 36526, 94909 #### [facility] [address] [place] [address], [place] Potassium [Moles/Vol] 3.2 mmol/L Low 3.5-5.1 [facility] Comment on above: Order Comment: No: D o not add to previous draw Performed By: #### 1 0070, 79835, 95404, 12269, 29972, 57279 #### [facility] [address] Sodium [Moles/Vol] 140 mmol/L Normal 136-145 [facility] Comment on above: Order Comment: No: D o not add to previous draw Performed By: #### 1 0070, 44910, 30230, 14342, 07111, 70778 #### [facility] [address] Urea nitrogen [Mass/Vol] 15 mg/dL Normal 7-25 [facility] Comment on above: Order Comment: No: D o not add to previous draw Performed By: #### 1 0070, 99217, 75442, 59571, 37620, 18798 #### [facility] [address] CBC W/DIFFon 03-31-2020 ABS BASOPHILS 0.0 10*3/uL Normal 0.0-0.2 [facility] Comment on above: Order Comment: No: D o not add to previous draw Performed By: #### 1 0070, 08824, 70865, 83307, 07949, 45999 #### [facility] [address] ABS IMM GRANS 0.0 10*3/uL Normal 0.0-0.2 [facility] Comment on above: Order Comment: No: D o not add to previous draw Performed By: #### 1 0070, 25461, 89247, 25522, 14718, 50427 #### [facility] [address] ABS NEUTROPHILS 3.2 10*3/uL Normal 1.6-7.6 [facility] Comment on above: Order Comment: No: D o not add to previous draw Performed By: #### 1 0070, 59054, 29499, 11031, 58242, 61558 #### [facility] [address] [place] [address], [facility] Basophils/100 WBC (Bld) 0.2 % Normal 0.0-1.0 [facility] Comment on above: Order Comment: No: D o not add to previous draw Performed By: #### 1 0070, 54739, 12845, 81592, 38862, 16054 #### [facility] [address] [place] [address], [facility] Eosinophils (Bld) [#/Vol] 0.0 10*3/uL Normal 0.0-0.5 [facility] Comment on above: Order Comment: No: D o not add to previous draw Performed By: #### 1 0070, 94113, 16872, 70486, 91390, 55565 #### [facility] [address] [place] [address], [facility] Eosinophils/100 WBC (Bld) 0.4 % Normal 0.0-6.0 [facility] Comment on above: Order Comment: No: D o not add to previous draw Performed By: #### 1 0070, 31821, 14760, 04415, 57467, 84842 #### [facility] [address] [place] [address], [facility] Erythrocyte distribution width (RBC) [Ratio] 13.0 % Normal 11.5-15.0 [facility] Comment on above: Order Comment: No: D o not add to previous draw Performed By: #### 1 0070, 75852, 82330, 68534, 58568, 01493 #### [facility] [address] [place] [address], [facility] Hematocrit (Bld) [Volume fraction] 34.4 % Low 36.0-45.0 [facility] Comment on above: Order Comment: No: D o not add to previous draw Performed By: #### 1 0070, 14227, 00200, 89695, 76551, 45587 #### [facility] [address] [facility] [place] [address], [facility] Hemoglobin (Bld) [Mass/Vol] 10.8 g/dL Low 12.0-15.0 [facility] Comment on above: Order Comment: No: D o not add to previous draw Performed By: #### 1 0070, 82369, 92126, 91795, 71812, 49129 #### [facility] [address] [place] [address], [facility] IMMATURE GRANS 0.4 % Normal 0.0-1.0 [facility] Comment on above: Order Comment: No: D o not add to previous draw Performed By: #### 1 0070, 26641, 88654, 33251, 25217, 36054 #### [facility] [address] Lymphocytes (Bld) [#/Vol] 1.2 10*3/uL Normal 1.2-4.0 [facility] Comment on above: Order Comment: No: D o not add to previous draw Performed By: #### 1 0070, 20056, 64908, 38255, 68814, 44535 #### [facility] [address] Lymphocytes/100 WBC (Bld) 25.7 % Normal 20.0-45.0 [facility] Comment on above: Order Comment: No: D o not add to previous draw Performed By: #### 1 0070, 99868, 11266, 92498, 09030, 46842 #### [facility] [address] [place] [address], [facility] MCH (RBC) [Entitic mass] 27.5 pg Normal 27.0-33.0 [facility] Comment on above: Order Comment: No: D o not add to previous draw Performed By: #### 1 0070, 00830, 54636, 32502, 82406, 23781 #### [facility] [address] [place] [address], [facility] MCHC (RBC) [Mass/Vol] 31.4 g/dL Low 32.0-35.0 [facility] Comment on above: Order Comment: No: D o not add to previous draw Performed By: #### 1 0070, 48246, 54600, 27105, 66494, 26508 #### [facility] [address] [place] [address], [facility] MCV (RBC) [Entitic vol] 87.5 fL Normal 82.0-98.0 [facility] Comment on above: Order Comment: No: D o not add to previous draw Performed By: #### 1 0070, 94092, 04495, 30436, 35006, 02084 #### [facility] [address] [facility] [address], [facility] Monocytes (Bld) [#/Vol] 0.3 10*3/uL Normal 0.1-1.0 [facility] Comment on above: Order Comment: No: D o not add to previous draw Performed By: #### 1 0070, 40770, 58410, 94661, 02151, 89929 #### [facility] [address] MONOS 6.2 % Normal 5.0-12.0 [facility] Comment on above: Order Comment: No: D o not add to previous draw Performed By: #### 1 0070, 11085, 21777, 20626, 32554, 71433 #### [facility] [address] [place] [address], [facility] Neutrophils/100 WBC (Bld) 67.1 % Normal 40.0-72.0 [facility] Comment on above: Order Comment: No: D o not add to previous draw Performed By: #### 1 0070, 92825, 36609, 80402, 78533, 29859 #### [facility] [address] [place] [address], [facility] Nucleated RBC/100 WBC (Bld) [Ratio] 0 % Normal 0-0 [facility] Comment on above: Order Comment: No: D o not add to previous draw Performed By: #### 1 0070, 68041, 10359, 40538, 57157, 79379 #### [facility] [address] [place] [address], [facility] PLAT CNT 210 10*3/uL Normal 150-400 [facility] Comment on above: Order Comment: No: D o not add to previous draw Performed By: #### 1 0070, 41662, 84153, 94066, 05985, 80801 #### [facility] [address] [place] [address], [facility] RBC (Bld) [#/Vol] 3.93 10*6/uL Normal 3.80-5.00 [facility] Comment on above: Order Comment: No: D o not add to previous draw Performed By: #### 1 0070, 17337, 12200, 55081, 15907, 83711 #### [facility] [address] [facility] [place] [address], [facility] WBC (Bld) [#/Vol] 4.71 10*3/uL Normal 4.00-10.60 [facility] Comment on above: Order Comment: No: D o not add to previous draw Performed By: #### 1 0070, 39456, 26117, 83707, 84046, 01942 #### [facility] [address] Cardiovascular Lab Reporton 03-31-2020 Cardiovascular Lab Report [facility] Patient Name: Paulie Emigdio [facility] S MR #: [id number] Department of Physician: Rebecca Weaver M.D. Medicine Service Date: 03/31/2020 Division of Birthdate: 1965 Cardiology Room #: 3AB [id number] Adult Cardiovascular Services [facility] [address] [place], [place] [address] Cardiovascular Laboratory Report INDICATIONS FOR PACEMAKER PLACEMENT: [...] silk suture. They were connected to a Rapportronik Edora dual-chamber pacing system. This was placed [...] Weaver M.D. Date Trans: 03/31/2020 03:35 P/mmo [id number] cc: Tony Hines M.D. Heart Failure/ Transplant Mailstop [address] [address] Normal [facility] MAGNESIUM BLOODon 03-31-2020 Magnesium [Mass/Vol] 1.8 mg/dL Low 1.9-2.7 [facility] Comment on above: Order Comment: No: D o not add to previous draw Performed By: #### 1 0070, 87614, 06560, 56161, 25688, 14631 #### [facility] [address] PHOSPHORUS BLOODon 0 Phosphate [Mass/Vol] 2.7 mg/dL Normal 2.5-5.0 [facility] Comment on above: Order Comment: No: D o not add to previous draw Performed By: #### 1 0070, 61401, 48790, 77264, 98062, 47742 #### [facility] [address] PROTHROMBIN TIMEon 0 INR Coag (PPP) [Relative time] 1.11 {INR} Normal 0.91-1.16 [facility] Comment on above: Order Comment: No: [...] CHEST 1995;108:231S-246S. Performed By: #### 1 0070, 57571, 63155, 74604, 96474, 70006 #### [facility] [address] [place] [address], [facility] PT Coag (PPP) [Time] 14.3 s Normal 12.3-14.8 [facility] Comment on above: Order Comment: No: D o not add to previous draw Result Comment: ALL RESULTS MUST BE INTERPRETED WITH RESPECT TO BLOOD DRAWING ARTIFACT OR DILUTION ERROR OF ANTICOAGULANT AT THE TIME OF SAMPLING. Performed By: #### 1 0070, 26577, 39054, 25891, 29590, 06299 #### [facility] [address] [place] [address], [facility] *SARS-CoV-2 COVID-19on 03-30 [id number] Not Detected Normal Not Detected [facility] Comment on above: Order Comment: No: D o not add to previous draw Performed By: #### 1 0070, 94096, 57510, 15383, 88961, 77738 #### [facility] [address] [place] [address], [facility] APTTon 03-30-2020 aPTT Coag (Bld) [Time] 24.9 s Low 25.0-35.0 Th [facility] Comment on above: Order Comment: No: [...] THIS PURPOSE. Performed By: #### 5 7307, 85649 #### [facility] [address] BASIC METABOLIC PANELon 03-03 Calcium [Mass/Vol] 8.9 mg/dL Normal 8.6-10.3 [facility] Comment on above: Order Comment: No: D o not add to previous draw Performed By: #### 1 0070, 65885, 46518, 70889, 64130, 51661 #### [facility] [address] [place] [address], [facility] Chloride [Moles/Vol] 110 mmol/L High 98-107 [facility] Comment on above: Order Comment: No: D o not add to previous draw Performed By: #### 1 0070, 64098, 34015, 95293, 52320, 06169 #### [facility] [address] [place] [address], [facility] CO2 [Moles/Vol] 26 mmol/L Normal 21-31 [facility] Comment on above: Order Comment: No: D o not add to previous draw Performed By: #### 1 0070, 43366, 51790, 85096, 72799, 44108 #### [facility] [address] [place] [id number], [facility] Creatinine [Mass/Vol] 0.86 mg/dL Normal 0.60-1.20 [facility] Comment on above: Order Comment: No: D o not add to previous draw Performed By: #### 1 0070, 08669, 50787, 34668, 51658, 59923 #### [facility] [address] [place] [address], [facility] GFR/1.73 sq M predicted among blacks MDRD (S/P/Bld) [Vol rate/Area] mL/min/{1.73_m2} Normal >60 [facility] Comment on above: Order Comment: No: D o not add to previous draw Performed By: #### 1 0070, 82773, 77842, 63933, 23444, 44832 #### [facility] [address] [place] [address], [facility] GFR/1.73 sq M predicted among non-blacks MDRD (S/P/Bld) [Vol rate/Area] mL/min/{1.73_m2} Normal >60 [facility] Comment on above: Order Comment: No: D o not add to previous draw Performed By: #### 1 0070, 32565, 23553, 67758, 82911, 85371 #### [facility] [address] [place] [address], [facility] Glucose [Mass/Vol] 119 mg/dL High 70-100 [facility] Comment on above: Order Comment: No: D o not add to previous draw Performed By: #### 1 0070, 91524, 73242, 38826, 12119, 58362 #### [facility] [address] [place] [address], [place] Potassium [Moles/Vol] 3.5 mmol/L Normal 3.5-5.1 [facility] Comment on above: Order Comment: No: D o not add to previous draw Performed By: #### 1 0070, 86434, 79458, 65842, 62429, 24445 #### [facility] [address] [place] [address], [place] Sodium [Moles/Vol] 142 mmol/L Normal 136-145 [facility] Comment on above: Order Comment: No: D o not add to previous draw Performed By: #### 1 0070, 14160, 21926, 92194, 46018, 08943 #### [facility] [address] Urea nitrogen [Mass/Vol] 13 mg/dL Normal 7-25 [facility] Comment on above: Order Comment: No: D o not add to previous draw Performed By: #### 1 0070, 92195, 50768, 31606, 31871, 76487 #### [facility] [address] CBC W/DIFFon 03-30-2020 ABS BASOPHILS 0.0 10*3/uL Normal 0.0-0.2 [facility] Comment on above: Performed By: #### 5 0103 #### [facility] [address] ABS IMM GRANS 0.0 10*3/uL Normal 0.0-0.2 [facility] Comment on above: Performed By: #### 5 102 #### [facility] [address] ABS NEUTROPHILS 5.7 10*3/uL Normal 1.6-7.6 [facility] Comment on above: Performed By: #### 5 102 #### [facility] [address] Basophils/100 WBC (Bld) 0.0 % Normal 0.0-1.0 [facility] Comment on above: Performed By: #### 5 102 #### [facility] [address] Eosinophils (Bld) [#/Vol] 0.0 10*3/uL Normal 0.0-0.5 [facility] Comment on above: Performed By: #### 5 102 #### [facility] [address] [place] [address], [facility] Eosinophils/100 WBC (Bld) 0.0 % Normal 0.0-6.0 [facility] Comment on above: Performed By: #### 5 3 #### [facility] [address] Erythrocyte distribution width (RBC) [Ratio] 12.9 % Normal 11.5-15.0 [facility] Comment on above: Performed By: #### 3 #### [facility] [address] Hematocrit (Bld) [Volume fraction] 36.1 % Normal 36.0-45.0 [facility] Comment on above: Performed By: #### 102 #### [facility] [address] Hemoglobin (Bld) [Mass/Vol] 11.5 g/dL Low 12.0-15.0 [facility] Comment on above: Performed By: #### 5 3 #### [facility] [address] IMMATURE GRANS 0.5 % Normal 0.0-1.0 [facility] Comment on above: Performed By: #### 5 3 #### [facility] [address] Lymphocytes (Bld) [#/Vol] 0.6 10*3/uL Low 1.2-4.0 [facility] Comment on above: Performed By: #### 5 3 #### [facility] [address] Lymphocytes/100 WBC (Bld) 9.3 % Low 20.0-45.0 [facility] Comment on above: Performed By: #### 5 3 #### [facility] [address] MCH (RBC) [Entitic mass] 27.4 pg Normal 27.0-33.0 [facility] Comment on above: Performed By: #### 5 0103 #### [facility] [address] [facility] MCHC (RBC) [Mass/Vol] 31.9 g/dL Low 32.0-35.0 [facility] Comment on above: Performed By: #### 5 0103 #### [facility] [address] MCV (RBC) [Entitic vol] 86.0 fL Normal 82.0-98.0 [facility] Comment on above: Performed By: #### 5 0103 #### [facility] [address] Monocytes (Bld) [#/Vol] 0.2 10*3/uL Normal 0.1-1.0 [facility] Comment on above: Performed By: #### 5 0103 #### [facility] [address] MONOS 2.5 % Low 5.0-12.0 [facility] Comment on above: Performed By: #### 5 0103 #### [facility] [address] Neutrophils/100 WBC (Bld) 87.7 % High 40.0-72.0 [facility] Comment on above: Performed By: #### 5 0103 #### [facility] [address] Nucleated RBC/100 WBC (Bld) [Ratio] 0 % Normal 0-0 [facility] Comment on above: Performed By: #### 5 0103 #### [facility] [address] PLAT CNT 261 10*3/uL Normal 150-400 [facility] Comment on above: Performed By: #### 5 0103 #### [facility] [address] [place] [address], [facility] RBC (Bld) [#/Vol] 4.20 10*6/uL Normal 3.80-5.00 [facility] Comment on above: Performed By: #### 5 0103 #### [facility] [address] [place] [address], [facility] WBC (Bld) [#/Vol] 6.47 10*3/uL Normal 4.00-10.60 [facility] Comment on above: Performed By: #### 5 0103 #### [facility] [address] [place] [address], [facility] FREE T4on 03-30-2020 Free T4 [Mass/Vol] 1.48 ng/dL Normal 0.71-1.85 [facility] Comment on above: Performed By: #### 1 0070, 04636, 10377, 35508, 58687, 75155 #### [facility] [address] [place] [address], [facility] MAGNESIUM BLOODon 03-30-2020 Magnesium [Mass/Vol] 2.0 mg/dL Normal 1.9-2.7 [facility] Comment on above: Order Comment: No: D o not add to previous draw Performed By: #### 1 0070, 32547, 88630, 02482, 66789, 74382 #### [facility] [address] [facility] [place] [id number], [facility] PHOSPHORUS BLOODon 0 Phosphate [Mass/Vol] 2.8 mg/dL Normal 2.5-5.0 [facility] Comment on above: Order Comment: No: D o not add to previous draw Performed By: #### 1 0070, 26231, 62382, 28725, 87867, 24410 #### [facility] [address] [facility] PROTHROMBIN TIMEon 0 INR Coag (PPP) [Relative time] 1.21 {INR} High 0.91-1.16 [facility] Comment on above: Order Comment: No: [...] CHEST 1995;108:231S-246S. Performed By: #### 5 7307, 61692 #### [facility] [address] [facility] [place] [address], [facility] PT Coag (PPP) [Time] 15.4 s High 12.3-14.8 [facility] Comment on above: Order Comment: No: D o not add to previous draw Result Comment: ALL RESULTS MUST BE INTERPRETED WITH RESPECT TO BLOOD DRAWING ARTIFACT OR DILUTION ERROR OF ANTICOAGULANT AT THE TIME OF SAMPLING. Performed By: #### 5 7307, 71281 #### [facility] [address] [facility] [place] [address], [facility] TROPONIN-Ion 03-30-2020 Troponin I.cardiac [Mass/Vol] 0.02 ng/mL Normal 0.00-0.04 [facility] Comment on above: Order Comment: No: D o not add to previous draw Result Comment: REFE RENCE RANGES: 0.00 - 0.04 ng/ml NORMAL 0.05 - 0.50 ng/ml INDETERMINATE > 0.50 ng/ml CONSISTENT WITH AN M.I. Performed By: #### 1 0070, 65559, 51741, 18097, 94835, 63422 #### [facility] [address] Troponin I.cardiac [Mass/Vol] 0.04 ng/mL Normal 0.00-0.04 [facility] Comment on above: Order Comment: No: D o not add to previous draw Result Comment: REFE RENCE RANGES: 0.00 - 0.04 ng/ml NORMAL 0.05 - 0.50 ng/ml INDETERMINATE > 0.50 ng/ml CONSISTENT WITH AN M.I. Performed By: #### 3 5200 #### [facility] [address] [facility] [place] [address], [facility] Troponin I.cardiac [Mass/Vol] 0.04 ng/mL Normal 0.00-0.04 [facility] Comment on above: Order Comment: No: D o not add to previous draw Result Comment: REFE RENCE RANGES: 0.00 - 0.04 ng/ml NORMAL 0.05 - 0.50 ng/ml INDETERMINATE > 0.50 ng/ml CONSISTENT WITH AN M.I. Performed By: #### 1 [id number], [id number], [id number], [id number], [id number], [id number] #### [facility] [address] [facility]. [address] TSH3 WITH REFLEX FT4on 03-30 TSH 3RD GENERATION 0.02 uIU/mL Low 0.34-5.60 [facility] Comment on above: Performed By: #### 1 0070, [id number], [id number], [id number], [id number], [id number] #### [facility] [address] [facility] [address] Vital Signs Date Time Vital Sign Value Performing Clinician Faci lity 06-13-2024 12:13-0400 Body height 152.3 cm Zoila Monae MD Work Phone: [facility] [facility] 06-13-2024 12:13-0400 Body mass index (BMI) [Ratio] 19.98 kg/m2 Zoila Monae MD Work Phone: [facility] 06-13-2024 12:13-0400 Body weight 46.35 kg Zoila Monae MD Work Phone: [facility] 06-13-2024 12:13-0400 Diastolic blood pressure 77 mm[Hg] Zoila Monae MD Work Phone: [facility] 06-13-2024 12:13-0400 Heart rate 74 /min Zoila Monae MD Work Phone: [facility] 06-13-2024 12:13-0400 Systolic blood pressure 107 mm[Hg] Zoila Monae MD Work Phone: [facility] 03-06-2024 13:46-0400 Body height 153.5 cm Zoila Monae MD Work Phone: [facility] 03-06-2024 13:46-0400 Body mass index (BMI) [Ratio] 19.1 kg/m2 Zoila Monae MD Work Phone: [facility] 03-06-2024 13:46-0400 Body temperature 97.2 [degF] Zoila Monae MD Work Phone: [facility] 03-06-2024 13:46-0400 Body weight 45 kg Zoila Monae MD Work Phone: [facility] 03-06-2024 13:46-0400 Diastolic blood pressure 68 mm[Hg] Zoila Monae MD Work Phone: [facility] 03-06-2024 13:46-0400 Heart rate 106 /min Zoila Monae MD Work Phone: [facility] 03-06-2024 13:46-0400 Systolic blood pressure 101 mm[Hg] Zoila Monae MD Work Phone: [facility] 08-12-2022 15:32-0500 Body temperature 98.1 [degF] MD Tony Amaya Work Phone: [facility] 08-12-2022 15:32-0500 Diastolic blood pressure 69 mm[Hg] MD Tony Amaya Work Phone: [facility] 08-12-2022 15:32-0500 Heart rate 78 /min MD Tony Amaya Work Phone: [facility] 08-12-2022 15:32-0500 Respiratory rate 16 /min MD Tony Amaya Work Phone: [facility] 08-12-2022 15:32-0500 SaO2% (BldA) [Mass fraction] 94 % MD Tony Amaya Work Phone: [facility] 08-12-2022 15:32-0500 Systolic blood pressure 129 mm[Hg] MD Tony Amaya Work Phone: [facility] 08-12-2022 11:00-0500 Inhaled oxygen flow rate 3 L/min MD Tony Amaya Work Phone: [facility] 08-11-2022 12:39-0500 Body height 152.4 cm MD Tony Amaya Work Phone: [facility] 08-11-2022 06:00-0500 Body weight 44.9 kg MD Toyn Amaya Work Phone: [facility] 08-10-2022 15:03-0500 Body mass index (BMI) [Ratio] 19.1 kg/m2 MD Tony Amaya Work Phone: [facility] 08-03-2022 14:27-0400 Body weight 0 kg MD Tony Amaya Work Phone: [facility] Encounters Encounter Date Encounter Type Care Provider Facility Start: 07-10-2024 End: 07-10-2024 Suzette Mackay NP Work Phone: [facility] Start: 07-10-2024 End: 07-10-2024 Bamboo flowsheet Zulema Mackay [employer] Work Phone: [facility] Start: 07-10-2024 End: 07-10-2024 Office outpatient visit 15 minutes Zulema Luis Simonebill [employer] Work Phone: [facility] Comment on above: Closed nondisplaced fracture of right patella, unspecified fracture morphology, initial encounter (Primary Dx); Right knee pain, unspecified chronicity Start: 07-10-2024 End: 07-10-2024 ambulatory ZULEMA Smith APLBILL Not Available Start: 07-02-2024 ambulatory Alejandro Flaherty acility:[facility] Start: 06-24-2024 End: 06-24-2024 ambulatory ZULEMA Smith APLING Not Available Start: 06-13-2024 End: 06-13-2024 ambulatory SUKHDEV SAEED Facility:[facility] Start: 06-13-2024 End: 06-13-2024 Patient encounter procedure Zoila Monae MD Work Phone: [facility] Comment on above: Transient neurologic al symptoms (Primary Dx) Start: 06-11-2024 ambulatory ZOILA MONAE [facility] ty:[facility] Start: 06-11-2024 End: 06-11-2024 Subsequent hospital visit by physician Eeg [facility] Work Phone: [facility] EEG Comment on above: Memory deficit [R41. 3] Start: 06-04-2024 End: 06-04-2024 Orders Only Zoila Monae MD Work Phone: [facility] Comment on above: Memory deficit (Prim isamar Dx); Auditory hallucinations; Mentally challenged Start: 05-28-2024 End: 05-28-2024 ambulatory [facility] Start: 03-06-2024 End: 03-06-2024 ambulatory TONY AMAYA Facility:[facility] Start: 03-06-2024 End: 03-06-2024 Patient encounter procedure Zoila Monae MD Work Phone: [facility]rology [facility] Comment on above: Memory deficit (Prim isamar Dx); Auditory hallucinations; Mentally challenged Start: 02-20-2024 Emergency department patient visit REGAN ALDANA [facility] Start: 02-20-2024 End: 02-20-2024 Emergency department patient visit CASSANDRA ALCANTARA [facility] Start: 02-01-2024 End: 02-01-2024 ambulatory TONY AMAYA [facility] Start: 01-01-2024 Emergency department patient visit GURDEEP KIRKPATRICK [facility] Start: 01-01-2024 End: 01-05-2024 Evaluation and management of inpatient P[address] WAY [facility] Start: 10-24-2023 End: [facility]: 01-03-2023 End: 01-07-2023 Evaluation and management of inpatient DR TONY AMAYA . Facility:[facility] Start: 11-01-2022 End: 11-02-[address] TONY AMAYA . Facility:[facility] Start: 09-30-2022 End: 10-01-[address] ROSALINA BAUTISTA Facility:[facility] Start: 09-02-2022 End: 09-02-2022 ambulatory MD Tony Amaya Work Phone: [facility] Work Phone: Start: 09-02-2022 End: 09-02-2022 Patient encounter procedure MD Tony Amaya Work Phone: [facility] [place] Start: 08-25-2022 End: 08-25-[address] ROSALINA BAUTISTA Facility:[facility] Start: 08-10-2022 End: 08-12-2022 Admission to same day surgery center MD Tony Amaya Work Phone: [facility] [place] Start: 08-10-2022 End: 08-12-2022 ambulatory MD Tony Amaya Work Phone: [facility] Work Phone: Start: 08-08-2022 End: 08-08-2022 ambulatory MD Tony Amaya Work Phone: [facility] Work Phone: Start: 08-08-2022 End: 08-08-2022 Departed Referred MD Tony Amaya Work Phone: [facility] [place] Start: 08-05-2022 End: 08-05-2022 ambulatory MD Tony Amaya Work Phone: [facility] Work Phone: Start: 08-05-2022 End: 08-05-2022 Patient encounter procedure MD Tony Amaya Work Phone: [facility] Start: 07-30-2022 End: 07-30-[address] ROSALINA BAUTISTA Facility:[facility] Start: 07-04-2022 End: 07-06-[address] TONY AMAYA . Facility:[facility] Start: 07-04-2022 End: 07-04-[address] ALBERTO FERRO Facility:[facility] Start: 06-29-2022 Encounter for preprocedural laboratory examination [facility] . [facility] Start: 06-27-2022 End: 06-28-2022 ambulatory [facility] . Facility:[facility] Start: 06-27-2022 End: 06-28-2022 Encounter for preprocedural laboratory examination [facility] . Facility:[facility] Start: 06-22-2022 End: 06-23-2022 ambulatory [facility] . Facility:[facility] Start: 06-20-2022 End: 06-20-[address] TONY AMAYA . Facility:[facility] Start: 06-20-2022 End: 06-21-2022 ambulatory [facility] . Facility:[facility] Start: 03-03-[address] TONY AMAYA . Facili ty:[facility] Start: 03-02-2022 End: 03-03-[address] TONY AMAYA . Facility:[facility] Start: 01-18-2022 End: 01-21-2022 Evaluation and management of inpatient DR TONY AMAYA . Facility: Start: 03-30-2020 End: 04-06-2020 Evaluation and management of inpatient EMMY TOLEDO Facility:[facility] Procedures Date Procedure Procedure Detail Performing Clinician Start: 06-11-2024 Electroencephalogram w/rec awake&drowsy Zoila Monae MD Work Phone: Start: 06-11-2024 Electroencephalogram w/rec awake&drowsy Provider [facility] Start: 09-02-2022 Plain chest X-ray MD Tony Aamya Work Phone: Start: 08-12-2022 End: 08-12-2022 Plain [...] LEAD INTO RIGHT ATRIUM, PERC APPROACH REBECCA WEAVER Acid fast bacilli culture MD Tony Amaya Work Phone: Acid fast stain method MD Torres Work Phone: Aerobic microbial culture MD Tony Amaya Work Phone: Anaerobic microbial culture MD Tony Amaya Work Phone: Urine culture MD oTny Amaya Work Phone: Plan of Treatment Date Care Activity Detail Author Start: 02-19-2027 Diabetes Screening Diabetes Screenin g [facility] Start: 08-07-2024 End: 08-07-2024 Patient encounter procedure 08/07/2024 11:00 AM EST Office Visit [facility] [address] [place] [address] Zulema Mackay, [employer] [address] [place] [address] [facility] Start: 07-22-2024 End: 07-22-2024 Patient encounter procedure 07/22/2024 12:30 PM EDT Office Visit [facility] [address] [place] [address] Zulema Mackay, [employer] [address] [place] [address] [facility] Start: 07-10-2024 End: 07-10-2024 Patient encounter procedure 07/10/2024 12:15 PM EDT Office Visit [facility] [address] [place] [address] Zulema Mackay, [employer] [address] [place] [address] Arrived [facility] Comment on above: Arrived Start: 06-13-2024 End: 06-13-2024 Patient encounter procedure 06/13/2024 12:30 PM EDT Office Visit Neurology [facility] [address] [place] [address] [place] [address] [place] [address] Return in about 3 months (around 06/06/2024) for with Dr. Monae. [facility] Comment on above: Return in about 3 mo nths (around 06/06/2024) for with Dr. Monae. Start: 06-11-2024 End: 06-11-2024 Patient encounter procedure 06/11/2024 9:00 AM EDT Appointment [facility] [address] [address] Memory deficit [R41.3] [facility] Comment on above: Memory deficit [R41. 3] Start: 06-02-2024 Covid-19 Vaccine ( season) Covid-19 Vaccine () [facility] Start: 06-02-2024 Influenza vaccination [facility] Start: 03-29-2024 End: 03-29-2024 Patient encounter procedure 03/29/2024 11:45 AM EDT Office Visit Neurology [address] [place] [address] Memory deficit [R41.3] Neurology Comment on above: Memory deficit [R41. 3] Start: 10-02-2023 Behavioral Health Screening Behavioral Health Screening [facility] Start: 06-02-2023 Covid-19 Vaccine ( season) Covid-19 Vaccine () [facility] Start: 08-12-2022 [facility] Start: 08-10-2022 Consultation [facility] Start: 08-10-2022 End: 08-10-2022 [facility] Start: 2014 Shingrix Vaccine (1 of 2) Shingrix Vaccine (1 of 2) [facility] Start: 2009 Lipid panel Lipid Screening [facility] Start: 2009 Screening for malign ant neoplasm of colon [facility] Start: 2004 Screening for malign ant neoplasm of breast Mammogram Screening [facility] Start: 1994 Screening for malign ant neoplasm of cervix HPV Testing [facility] Start: 1985 Screening for malign ant neoplasm of cervix [facility] Start: 1983 Urine microalbumin profile DTaP,Tdap,Td Vaccine (1 - Tdap) [facility] Start: 1982 Anxiety Screening Anxiety Screening [facility] Start: 1982 Depression Screening Depression Scre ening [facility] Start: 1982 Hepatitis C screening Hepatitis C Sc reening [facility] Start: 1982 HIV screening HIV Screening [facility] Acid Fast Bacilli Culture & Smear Acid Fast Bacilli Culture & Smear [facility] Anaerobic microbial culture Anaerobic Culture [facility] Bacteria identified in Urine by Culture Urine Culture [facility] Chlamydia trachomati s [Presence] in Unspecified specimen by Organism specific culture [facility] Work Phone: Chlamydia trachomati s [Presence] in Unspecified specimen by Organism specific culture [facility] EEG EEG NEUROLOGY 12:00 AM EDT [facility] End: 03-06-2025 EPIL EEG ROUTINE EPIL EEG ROUTINE NEUROLOGY Routine Memory deficit Auditory hallucinations 1 Occurrences starting 03/06/2024 until 03/06/2025 [facility] Work Phone: Comment on above: 1 Occurrences starti ng 03/06/2024 until 03/06/2025 Fungal Culture Result 1 Fungal Culture Re sult 1 [facility] Fungus identified in Unspecified specimen by Culture [facility] Work Phone: Mycobacterium sp identified in Unspecified specimen by Organism specific culture [facility] Work Phone: Mycology Culture Mycology Culture [facility] Patient referral [facility] Work Phone: [facility] Payers Date Payer Category Payer Self-pay 2017 Medicaid [id number] 1965 Unknown [id number] 2.16.8 [id number] 1965 Unknown [id number] 2.16.84 0.1.407757.3.579.2.593 1965 Unknown [id number] 2.16.84 0.1.958058.3.579.2.593 1965 Unknown [id number] 2.16.84 0.1.761277.3.579.2.593 1964 Unknown [id number] 2.16.84 0.1.809410.3.579.2.593 1964 Unknown [id number] 2.16.84 0.1.916830.3.579.2.593 1964 Unknown [id number] 2.16.84 0.1.594307.3.579.2.593 1964 Unknown [id number] 2.16.84 0.1.341865.3.579.2.593 1964 Unknown [id number] 2.16.84 0.1.345736.3.579.2.593 1964 Unknown [id number] 2.16.84 0.1.869329.3.579.2.593 1964 Unknown [id number] 2.16.84 0.1.132247.3.579.2.593 1964 Unknown [id number] 2.16.84 0.1.129358.3.579.2.593 1964 Unknown [id number] 2.16.84 0.1.750083.3.579.2.593 1964 Unknown [id number] 2.16.84 0.1.127120.3.579.2.593 1964 Unknown [id number] 2.16.84 0.1.081057.3.579.2.593 1964 Unknown [id number] 2.16.84 0.1.601233.3.579.2.1259 1964 Unknown [id number] 2.16.84 0.1.715795.3.579.2.1259 1965 Unknown [id number] 2.16.84 0.1.876140.3.579.2.1259 1960 Self-pay [id number] 1960 Unknown [id number] Unknown [id number] 2.16.8 40.1.940184.3.579.2.531 Social History Date Type Detail Facility Tobacco smoking stat us [facility] Unknown if ever smoked [facility] Work Phone: Start: 1965 Sex Assigned At Female [facility] Start: 08-10-2022 End: 06-24-2024 Tobacco smoking status NEIS Never smoked tobacco (finding) [facility] Start: 03-06-2024 Tobacco smoking status [facility] Tobacco smoking consumption unknown [facility] Start: 03-06-2024 End: 07-10-2024 History of Social function [facility] Start: 03-06-2024 End: 07-10-2024 Area Deprivation Index [facility] National Score (1-10 0), lower number is lower risk 76 [facility] Start: 1965 Sex Assigned At Not on file [facility] Start: 06-24-2024 Tobacco use and exposure Smokeless tobacco non-user [facility] Start: 06-24-2024 End: 07-10-2024 Alcoholic beverage intake Ex-drinker (finding) [facility] Start: 06-21-2024 Gender identity Identifies as female gender (finding) [facility] Start: 06-21-2024 Sexual orientation Heterosexual (finding) [facility] Medical Equipment Procedure Code Equipment Code Equipment Origin al Text Equipment Identifier Dates Thoracotomy Surgical adhesive/sealant, human-derived [id number] [facility] Start: 08-10-2022 Goals Date Patient Goal Desired Activity /State Functional Status Date Assessment Result Facility 08-12-2022 Functional status Patient at Baseline [facility] Work Phone: Mental Status Date Assessment Result Facility 08-12-2022 Cognitive function Cognitive Sta tus Patient at Baseline [facility] Work Phone: Clinical Notes 08-10-2022 to 07-10-2024 Zulema Mackay NP - 07/10/2024 12:15 PM Zoila Mcdonald MD - 06/13/2024 12:30 PM EDTTelephone Encounter - Zoila Monae MD - 06/04/2024 1:21 PM EDT Note Date & Type Note Facility 07-10-2024 History of Present illness Narrative Images from the original note were not included. Subjective Patient ID: Emigdio Eli is a 58 y.o. female. RT Knee CT RT knee [facility] 07/05/24 3 weeks ago, Pt had tripped over a sidewalk and Fell landing on her left hand and right knee. DOI 06/19/24, she then hit her chest and rolled over onto her left shoulder hitting her shoulder. She was able to walk afterwards, was taken to [facility] ER on 06/19/24 by her partner Notes 06/22/24 she [place] again [place] race[place], and cut her LT knee. She notes she is able to walk better but to lift it up to get over something has increasing pain. Presents with enrike wrap she wears all the time, besides at night, since going to the hospital. She has never injured the knee in the past. Constant knee pain, anteriorly. Denies radiation. Pain at rest 6/10. Pain at worst 8/10 with prolonged walking, and at night. Limited ROM, painful to fully bend. Denies N/T. She is icing and using a heating pad with some relief. Pain worse with a lot of walking and when lifting her leg to go over her dogs gate. Admits waking at night. Admits IBU with little relief. Denies cracking/popping. She believes it locks sometimes. Admits giving out sensation. Notes she falls often because she has vertigo which she was dx with 6 months ago. TX: XR/06/19/24/[facility] LT hand, RT knee, LT shoulder, [facility] ER 06/19/24, norco, IBU, XR [facility] 06/24, [facility] 07/05/24 Objective Ortho Exam Knee Musculoskeletal Exam Gait Limp: right Inspection Right Erythema: none Effusion: mild Edema: none Ecchymosis: none Deformity: none Alignment: normal Palpation Right Tenderness: present Tenderness comment: over patella Range of Motion Range of motion additional comments: Not tested due to fracture I reviewed the ct of the right knee done at [facility] on 07/05/24 reveals a non displaced fracture of the inferior pole of the patella. Assessment/Plan Encounter Diagnoses: ICD-10-CM 1. Closed nondisplaced fracture of right patella, unspecified fracture morphology, initial encounter S82.001A 2. Right knee pain, unspecified chronicity M25.561 Discussed fracture care and treatment. Answered all questions. Also discussed risks for non union. The patient was fit today with a right L1833 Knee orthosis, adjustable knee joints (unicentric or polycentric), positional orthosis, rigid support, prefabricated, [id number] knee brace. Brace is locked at 0 (degrees). Patient is unable to allow for motion 24 hours per day . Due to the patient's diagnosis and related symptoms this is medically necessary for treatment. The function of this device is to restrict and limit motion, provide stabilization, and immobilization to allow for full and proper healing. The goals and function-of this device were explained in detail to the patient. They were able to apply the device properly themselves without issue. At the time the device was dispensed, it was suitable for the condition and was not substandard. No guarantees were given and precautions were reviewed. Written instructions and warranty information was given along with the list of the current Durable Medical Equipment Supplier Guidelines. The patient was given a patient education sheet regarding signs and symptoms of a DVT and was instructed to call the doctor immediately if they experience any symptoms. F/U in 4 weeks with xrays of the patella, she may take off to bathe otherwise should wear at all times. She may wbat in the brace documented in this encounter [facility] 06-13-2024 History of Present illness Narrative [facility] Follow up/ Established patient visit Individuals who were included in, or assisted with the encounter were: Emigdio Eli Zoila Monae MD Chief Complaint/Issues: Emigdio Eli is a 58 year old female seen in the [facility] for: Staring spells. [...] that she can have it done in [place] but she would rather come here. She [...] Unremarkable intracranial CT angiogram. Electronically signed: Shari Rileyromimustapha. Outside Data/Labs: not available from her PCP Subjective Patient-Entered Data: 06/11/24 - GENERAL NEUROLOGY SCORES I spent a total of 30 minutes on the date of the service which included preparing to see the patient, [id number] patient care, completing clinical documentation, obtaining and/or reviewing separately obtained history, performing a medically appropriate examination, counseling and educating the patient/family/caregiver, ordering medications, tests, or procedures, communicating with other HCPs (not separately reported), and communicating results to the patient/family/caregiver. Zoila Monae MD documented in this encounter [facility] 06-13-2024 Note HNO ID: [id number] Author: ZOILA MONAE MD Service: ? Author Type: Physician Type: Progress Notes Filed: 06/13/2024 13:41 Note Text: [facility] Follow up/ Established patient visit Individuals who were included in, or assisted with the encounter were: Emigdio Eli Zoila Monae MD Chief Complaint/Issues: Emigdio Eli is a 58 year old female seen in the [facility] for: Staring spells. [...] that she can have it done in [place] but she would rather come here. She [...] 100 mg b (more content not included)... [facility] 06-11-2024 Note HNO ID: [id number] Author: NARCISA YUSUF MD Service: Neurology General Author Type: Physician Type: Procedures Filed: 06/13/2024 13:25 Note Text: [facility] - Electroencephalogram EMIGDIO ELI : 1965 AGE: 58 SEX: F CSN: [id number] HOSP SVC: LOCATION: ATTENDING PHYSICIAN: DATE OF [...] have been noted. Narcisa Yusuf M.D. Neurology [id number] /[id number] [facility] 06-04-2024 Telephone encounter Note A new neuropsych order has been put in. Thanks Zoila Monae MD [facility] Work Phone: 06-04-2024 Miscellaneous Notes A new neuropsych order has been put in. Thanks Zoila Monae MD documented in this encounter [facility] 06-04-2024 Note HNO ID: [id number] Author: ZOILA MONAE MD Service: ? Author Type: Physician Type: Progress Notes Filed: 06/04/2024 13:22 Note Text: Neuropsychology order had when they tried to get her in. A new order has been put in and good for a year. Zoila Monae MD [facility] 06-04-2024 History of Present illness Narrative Neuropsychology order had when they tried to get her in. A new order has been put in and good for a year. Zoila Monae MD documented in this encounter [facility] 03-06-2024 History of Present illness Narrative Images from the original note were not included. [facility] New Patient Evaluation Consulting Provider: Tony Amaya [address] [address] The patient presents with a chief complaint [...] year old Rh female seen in the [facility] for: Cognitive evaluation [...] for low IQ. She worked in a [employer] shop and only worked 6 months. She [...] and no carotid or cranial bruit auscultated [facility] Assessment (MoCA) Version 1 Total Score: 17/30 Visuospatial/Executive Alternating Linneus Making: Patient successfully draws the pattern without [...] fabric' (0) Word 3: Required multiple choice- 'tenriism, school, hospital' (0) Word 4: Required category [...] Abnormal ECG COPD (chronic obstructive pulmonary disease) ([facility]/HCC) Hyperlipidemia Past Surgical History: Procedure Laterality Date [...] signed: Karthikeyan Linn. Outside Data/Labs: 01/2024 at [facility]: Tox screen negative, Etoh negative, CBC is normal, CMP is normal, Folate 34, B12 148, TSH 0.01 IMPRESSION: Unremarkable intracranial CT angiogram. Unremarkable unenhanced CT of the brain. Unremarkable extracranial CT angiogram Subjective Patient-Entered Data: 03/04/24 - GENERAL NEUROLOGY SCORES I spent a total of 55 minutes on the date of the service which included preparing to see the patient, lbpl-xx-cmso patient care, completing clinical documentation, obtaining and/or reviewing separately obtained history, performing a medically appropriate examination, counseling and educating the patient/family/caregiver, ordering medications, tests, or procedures, communicating with other HCPs (not separately reported), and communicating results to the patient/family/caregiver. Zoila Monae MD documented in this encounter [facility] 03-06-2024 Note HNO ID: [id number] Author: ZOILA MONAE MD Service: ? Author Type: Physician Type: Progress Notes Filed: 03/06/2024 15:39 Note Text: [facility] General Neurology New Patient Evaluation Consulting Provider: Tony Amaya [address] [address] The patient presents with a chief complaint [...] year old Rh female seen in the [facility] for General Neurology for: Cognitive evaluation [...] Version 1 Total Score: 17/30 Visuospatial/Executive Alternating Linneus Making: Patient successfully draws the (more content not included)... [facility] 02-20-2024 Note Procedure ECG 12 lead Performed by: Regan Aldana NP Authorized by: Cassandra Alcantara MD ECG interpreted by ED Physician in the absence of a retirement benefits specialist: yes Rate: ECG rate: 79 ECG rate assessment: normal Rhythm: Rhythm: sinus rhythm and paced Pacing: Capture: Complete Type of pacing: Atrial Ectopy: Ectopy: none QRS: QRS axis: Normal QRS intervals: Normal QRS conduction: normal ST segments: ST segments: Normal T waves: T waves: normal Regan Aldana NP 02/20/24 190 [facility] 01-05-2024 Note REILLY rec'd consult for DME [...] telling her that her mother 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 Son's and mother do not work weekends and patient is now stating that her son's can request days off. Patient to discharge home this evening. [facility] 01-05-2024 Note Occupational Therapy Occupational Therapy Treatment Patient Name: Emigdio Eli : 1965 Today's Date: 01/05/2024 01/05/24 0852 Time Calculation Start Time 0852 Stop Time 0918 Time Calculation (min) 26 min Problem List Patient Active Problem List Diagnosis Abdominal pain Constipated Dyspepsia COPD (chronic obstructive pulmonary disease) ([facility]) CURRAN (dyspnea on exertion) Pacemaker Hyperlipidemia Dizziness Unspecified severe protein-calorie malnutrition ([facility]) Treatment: 01/05/24851 OT Last Visit OT Received [...] cristina-hygiene and clothing managment w/ setup from resume writer Functional Standing Tolerance Time untimed Activity [...] mobility;Decreased trunk control for functional activities OT Assessment/LICENSE DISTRIBUTOR Summary Pt would benefit from continued skilled [...] which includes (more content not included)... [facility] 01-04-2024 Note Hospital Medicine Daily Progress Note - 01/04/2024 1:18 PM; Room: [address] [place], [place] [address] Admission: 01/01/2024 9:17 PM; Length of stay: 0 days THE HOSPITALIST TEAM PREFERS TO USE Popbasic FOR COMMUNICATION 7AM-7PM. IF I DO NOT RESPOND WITHIN 15 MINUTES, PLEASE PAGE ME/CALL THROUGH THE HUMAN RESOURCES INTERN. FROM 7PM-7AM, PLEASE PAGE [phone](COVR) Code Status: Full Code Barriers to Discharge: [...] 1.66 01/02/2024 Lab Results Component Value Date [id number] 148 (L) 01/03/2024 Imaging ECG 12 lead Atrial-paced rhythm Right axis deviation Pulmonary disease pattern Abnormal ECG When compared with ECG of 30-MAR-2020 12:22, Electronic atrial pacemaker has replaced Sinus rhythm Vent. rate has increased BY 26 BPM QRS duration has decreased Nonspecific T wave abn (more content not included)... [facility] 01-03-2024 Note Physical Therapy Mckenzie wright [...] returning to/exceedi (more content not included)... [facility] 01-03-2024 Note Adult Nutrition Asse ssment: Name: Emigdio Eli Date: 1965 Date of Visit: 01/03/24 Admission Dx: Dizziness [R42] Nausea and vomiting, unspecified vomiting type [R11.2] Reason for assessment: high risk and MD referral HR: po intake, BMI MD Consult: underweight Information obtained from: patient, medical record, and nursing Past Medical History: Diagnosis Date Abnormal ECG COPD (chronic obstructive pulmonary disease) ([facility]) Hyperlipidemia Current Medications: buPROPion XL, [...] Assessment: Denies issues swallowing , swallow screen 01/01. -Mouth: Missing teeth - avoids some items 2/2 difficulty chewing such as tough meats. She does consume ground meats and other sources of protein (yogurt, cottage cheese). Pt would like to remain on regular diet. -Abdominal Assessment: Denies any current N/V/C/D. 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 Last BM and emesis were 12/31 per pt report. 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 Because of these symptoms, her appetite [...] based on: actual body weight Calorie needs: 1476-7355 kcals/day based on Equation: 28-32 kcal/kg MSJ [...] reduced energ (more content not included)... [facility] 01-03-2024 Note Hospital Medicine Daily Progress Note - 01/03/2024 9:20 AM; Room: 4179/4179-01 Admission: 01/01/2024 9:17 PM; Length of stay: 0 days THE HOSPITALIST TEAM PREFERS TO USE Popbasic FOR COMMUNICATION 7AM-7PM. IF I DO NOT RESPOND WITHIN 15 MINUTES, PLEASE PAGE ME/CALL THROUGH THE HUMAN RESOURCES INTERN. FROM 7PM-7AM, PLEASE PAGE [phone](COVR) Code Status: Full Code Barriers to Discharge: [...] 25 mg as needed for dizziness and sdxa-kqb-oqosqry Tylenol as needed for headaches. -Patient scheduled [...] 1.66 01/02/2024 Lab Results Component Value Date [id number] 148 (L) 01/03/2024 Imaging ECG 12 lead [...] OT Discharge Recommendations: Home Signed Sara Macdonald [facility] Medicine 01/03/2024 9:20 AM [facility] 01-03-2024 Note Occupational Therapy Occupational Therapy [...] this date and pt agreeable. Time In: 08 Time Out: 830 General Subjective: Pt pleasant [...] Level of Function Prior Function Level of [place]: Independent with ADLs and functional transfers, Independent [...] Guard/Supervision) Taking (more content not included)... [facility] 01-02-2024 Note 01/02/24 1201 Admission Assessment [...] Does the patient have a case management assistant assigned to them through their insurance? No [...] send link and activate MyChart? No [facility] 01-02-2024 Note 01/02/24 0931 Referral Data Referral Source child protective services social worker Referral Reason Psychosocial assessment Patient Information Primary Caregiver Self Activities of Daily Living Assistive Device Not applicable Living Arrangement (Current/Prior to Hospitalization) Private residence Behavior Oriented Communication Talks;Understands speaking;Understands Hungarian Discharge Planning Support Systems Children Patient's goal for discharge home Patient resides at home with her two adult children, ages 29 and 33. She relies on friends or other family members for transportation as no one in the family has their license. Denies financial hardship. Denies further social work needs. [facility] 01-02-2024 Note . Hospital Medicine History and Physical 01/02/2024 12:47 AM THE HOSPITALIST TEAM PREFERS TO USE [employer] CHAT FOR COMMUNICATION 7AM-7PM. IF I DO NOT RESPOND WITHIN 15 MINUTES, PLEASE PAGE ME/CALL THROUGH THE HUMAN RESOURCES INTERN. FROM 7PM-7AM, PLEASE PAGE [phone](COVR) Chief Complaint Chief Complaint Patient presents with [...] exertion) 05/03/2023 COPD (chronic obstructive pulmonary disease) ([facility]) Pacemaker Hyperlipidemia Abdominal pain 10/13/2014 [...] -Continued levo (more content not included)... [facility] 10-24-2023 Note [facility] Electrophysiology Consult Note [...] and has not been seen by any retirement benefits specialist since pacemaker placement in 2019 ECG 01/02/23 [...] upstroke, n (more content not included)... [facility] 10-24-2023 Note Patient here for fol low up echo, stress test, and device check. Review of Systems Constitutional: Positive for malaise/fatigue. Cardiovascular: Positive for chest pain and dyspnea on exertion. Respiratory: Positive for cough. Musculoskeletal: Positive for arthritis, back pain and myalgias. All other systems reviewed and are negative. [facility] 08-12-2022 History and physi leandro note Note Date/Time August 04, 2022 3:52pm [facility] [address] [place] [address] Cardiothoracic Surgery H&P Signed Patient: Emigdio Eli MR#: [id number] : 1965 Acct:[id number] Age/Sex: 56 / F Adm Date: 2 Loc: [place] Room: Type: PRE SCC Attending Dr: Rodolfo Harley MD Copies to: MD Tony Carrera MD~ Date of Service: 08/08/2022 HPI History of Present Illness History of present illness: Patient is a 56-year-old female with history of recurrent pneumonia and emphysema that presented to Dr. Izquierdo in early June with complaints of increased dyspnea on exertion, dry cough and fatigue. ?CT was completed on 06/20/22 that showed scattered groundglass opacities, mild emphysematous changes,mild bronchiolectasis, numerous calcified right hilar lymph nodes. ?Patient was then sent for a bronchoscopy that was completed by Dr. Izquierdo on 07/04/2022. ?Pathology shows chronic inflammation and interstitial fibrosis and fragments ofunremarkable bronchus. ?Patient was then seen back in Jj's office on 07/11/22. ?Dr. Izquierdo spoke with the pathologist Dr. Haider. ?He [...] 2020 in the left chest from a retirement benefits specialist at [facility] patient was unable to remember, [...] Patient has had extensive work-up by Dr. Izquierdo. He is uncertain for the cause for [...] patient had normal TSHlevel on 07/04/22 from [facility]. We will give 100 mg of IV Solu-Cortef on-call to the OR. We will utilize vancomycin and Levaquin given the questionable history of penicillin allergy with hives as a baby, although she states she recently had penicillin without issues. Documented By: Rodolfo Harley MD 08/04/22 1223 Signed By: <Electronically signed by MD Rodolfo Harley> 08/12/22 [address] [facility] Work Phone: 1(376) 980-825711-11-2022 Hospital Discharge instructionsAmbulatory Orders* Initiate Home Health Time Frame: 08/12/22, Location: Determined By Patient Additional Instructions no lifting 5-10 lbs. Continue Peridex mouthwash. May remove dressing tomorrow. Daily showers with Betasept wash. No driving.[facility] Work Phone: 1(293) 624-804011-11-2022 Progress note Author Nathaniel Meza [facility] August 12, 2022 11:59am Note Date/Time August 12, 2022 8:13am [facility] [address] [place] [address] Pulmonology Progress Note Signed Patient: Emigdio Eli MR#: [id number] : 1965 Acct:[id number] Age/Sex: 56 / F Adm Date: 2 Loc: Room: 5Y1387-3 Type: REG SDC Attending Dr: Rodolfo Harley [...] <Electronically signed by MD Nathaniel Meza> 08/12/22 [address] [facility] Work Phone: 1(796) 568-972011-10-2022 Progress note Author Nathaniel Meza [facility] August 11, 2022 10:07am Note Date/Time August 11, 2022 7:43am [facility] [address] [place] [address] Pulmonology Progress Note Signed Patient: Emigdio Eli MR#: [id number] : 1965 Acct:[id number] Age/Sex: 56 / F Adm Date: 2 Loc: Room: [address] [place] [address] Type: [facility] Attending Dr: Rodolfo Harley MD Copies [...] <Electronically signed by MD Nathaniel Meza> 08/11/[address] [place] [address] Work Phone: 1(503) 597-580911-09-2022 Consult note Author Nathaniel Meza [facility] August 10, 2022 5:46pm Note Date/Time August 10, 2022 5 :41pm [facility] [address] [place] [address] Pulmonology Consult Note Signed Patient: Emigdio Eli MR#: [id number] : 1965 Acct:[id number] Age/Sex: 56 / F Adm Date: 2 Loc: Room: [address] [place] [address] Type: REG SD Attending Dr: Rodolfo Harley MD Copies to: [...] Patient has been followed by Dr. Nadege Izquierdo at [place] with complaints of dyspnea on exertion as [...] negative unless noted below or in HPI [facility] Vaccinated for COVID-19?: No Medical History (Updated [...] able. Documented By: Nathaniel Meza MD 2 4275 Signed By: <Electronically signed by MD Nathaniel Meza> 08/10/22 [address] [facility] Work Phone: Evaluation noteNo assessment information available [facility] Work Phone: Evaluation note* Diagnosis Onset Date Resolution Status Bipolar 1 disorder acute Bronchiectasis acute Hypercholesteremia acute Hypothyroidism acute Interstitial lung disease [facility] Work Phone: evaluation note* Diagnosis Onset Date Resolution Status Bipolar 1 disorder acute Hypercholesteremia acute Hypothyroidism acute Interstitial lung disease [place] Bipolar 1 disorder acute Bronchiectasis acute Hypercholesteremia acute Hypothyroidism acute Interstitial lung disease ac [facility] Work Phone: evaluation note* Diagnosis Memory deficit- Primary Memory loss Auditory hallucinations Hallucinations Mentally challenged Unspecified intellectual disabilities [facility] Diagnosis Memory deficit- Primary Memory loss Auditory hallucinations Hallucinations Mentally challenged Unspecified intellectual disabilities [facility] Memory deficit Memory loss Auditory hallucinations Hallucinations [facility]* Diagnosis Transient neurological symptoms- Primary [facility] Diagnosis Closed nondisplaced fracture of right patella, unspecified fracture morphology, initial encounter- Primary Right knee pain, unspecified chronicity [facility] Outpatient Procedure (Routine) - Authorized Specialty Diagnoses / Procedures Referred By Contac t Referred To [facility] Diagnoses Memory deficit Auditory hallucinations Procedures EPIL EEG ROUTINE ELECTROENCEPHALOGRAM REC COMA/[place] [address] [id number] Neurological [place] [address] [place] [address] Referral ID Status Reason Start Date Expiration Date Visits Requested Visits Authorized [id number] Authorized Auto-Generat ed Referral 03/06/2024 03/06/2025 1 [...] EA ADDL 30 [place] [address] [place] [address] Referral ID Status Reason Start Date Expiration Date Visits Requested Visits Authorized [id number] Ref Not Required PCP Requested Referral 03/06/2024 06/04/2024 1 3 [facility] for referral (narrative)* Outpatient Procedure (Routine) - Closed Specialty Diagnoses / Procedures Referred By Contac t Referred To [facility] Diagnoses Memory deficit Auditory hallucinations Procedures EPIL EEG ROUTINE ELECTROENCEPHALOGRAM REC COMA/[place] [address] [place] [address] [place] [address] Referral ID Status Reason Start Date Expiration Date V isits Requested Visits Authorized [id number] Closed Auto-Generate d Referral 03/06/2024 03/06/2025 1 1 [facility] for visit Narrative* Outpatient Procedure (Routine) - Closed Specialty Diagnoses / Procedures Referred By Contac t Referred To [facility] Diagnoses Memory deficit Auditory hallucinations Procedures EPIL EEG ROUTINE ELECTROENCEPHALOGRAM REC COMA/[place] [address] [place] [address] Referral ID Status Reason Start Date Expiration Date V isits Requested Visits Authorized [id number] Closed Auto-Generate d Referral 03/06/2024 03/06/2025 1 1 [facility] Summary Purpose Family History No Family History Records FoundNo Family History Records FoundNo Family History Records FoundNo Family History Records FoundNo Family History Records FoundNo Family History Records FoundNo Family History Records Found Advance Directives No Advanced Directives Records Found Advance Directive Response Recorded Date/ Time Advance Directives No August 05, 2022 8:18am Hospital Course Note MR#: [id number] [facility] Pt. Name: Emigdio Eli Admitted: 03/30/2020 [...] Referral Specialty Diagnoses / Procedures Referred By Contac t Referred To Contact Diagnoses Memory deficit Auditory hallucinations Procedures NEUROPSYCHOLOGICAL TESTING CONSULT NEUROBEHAVIORAL STATUS XM PHYS/QHP 1ST HOUR NEUROPSYCHOLOGICAL TST EVAL PHYS/QHP 1ST HOUR NEUROPSYCHOLOGICAL TST EVAL PHYS/QHP EA ADDL HR PSYCL/NRPSYCL TST TECH 2+ TST 1ST 30 MIN PSYCL/NRPSYCL TST TECH 2+ TST EA ADDL 30 [place] [address] [place] [address] Referral ID Status Reason Start Date Expiration Date Visits Requested Visits Authorized [id number] Ref Not Required PCP Requested Referral 06/04/2024 09/02/2024 1 3 Additional Source Comments INFORMATION SOURCE (unrecogn ized section and content) DATE CREATED AUTHOR 04/23/2020 [facility] DATE CREATED AUTHOR AUTHOR'S ORGANIZ ATION 01/07/2023 [facility] DATE CREATED AUTHOR AUTHOR'S ORGANIZ ATION 05/30/2024 [facility] DATE CREATED AUTHOR AUTHOR'S ORGANIZ ATION 06/15/2024 [facility] DATE CREATED AUTHOR AUTHOR'S ORGANIZ ATION 06/15/2024 [facility] DATE CREATED AUTHOR AUTHOR'S ORGANIZ ATION 07/12/2024 [facility] EPIC DATE CREATED AUTHOR AUTHOR'S ORGANIZ ATION 07/17/2024 [facility] Care Teams (unrecognized sec tion and content) [...] MD Other Provider Active Giorgi Phillips , Other Provider Active Team Status: Inactive Member Role Status Dates Tony Amaya MD Primary Care Provider Active Rodolfo Harley MD 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 Provider 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 Start Date End Date Tony Amaya MD [address] [place] [address] Referring Family Medicine 02/09/24 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 Start Date End Date Tony Amaya MD [address] [place] [address] Referring Family Medicine 02/09/24 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 Start Date End Date Tony Amaya MD [address] [place] [address] Referring Family Medicine 02/09/24 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 Start Date End Date Tony Amaya MD [address] [place] [address] Referring Family Medicine 02/09/24 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 Start Date End Date Tony Amaya MD [address] [place] [address] PCP - General Family Medicine 06/13/24 Tony Amaya MD [address] [place] [address] Referring Family Medicine 02/09/24 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 Start Date End Date Tony Amaya MD [address] [place] [address] PCP - General Family Medicine 06/24/24 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 Start Date End Date Tony Amaya MD [address] [place] [address] PCP - General Family Medicine 06/24/24 Goals (unrecognized section and content) Goals may be documented in a n alternate section Source Comments (unrecognize d section and content) In the event this informatio n is protected by the Federal Confidentiality of Alcohol and Drug Abuse Patient Records regulations: The Federal rules restrict any use of the information to criminally investigate or prosecute any alcohol or drug abuse patient.[facility] the event this information is protected by the Federal Confidentiality of Alcohol and Drug Abuse Patient Records regulations: The Federal rules restrict any use of the information to criminally investigate or prosecute any alcohol or drug abuse patient.[facility] the event this information is protected by the Federal Confidentiality of Alcohol and Drug Abuse Patient Records regulations: The Federal rules restrict any use of the information to criminally investigate or prosecute any alcohol or drug abuse patient.[facility] Rehabilitation[facility] the event this information is protected by the Federal Confidentiality of Alcohol and Drug Abuse Patient Records regulations: The Federal rules restrict any use of the information to criminally investigate or prosecute any alcohol or drug abuse patient.[facility] Rehabilitation[facility] the event this information is protected by the Federal Confidentiality of Alcohol and Drug Abuse Patient Records regulations: The Federal rules restrict any use of the information to criminally investigate or prosecute any alcohol or drug abuse patient.[facility] Reason for Visit (unrecogniz ed section and content) Reason Comments Dementia cognitive Reason Comments Follow Up Reason Comments Pain FOR RECORDS PERTAINING TO PATIENTS WHO ARE [...] BE BASED ON THE PRIMARY CLINICAL RECORDS. [facility]. provides no warranty or guarantee of the accuracy or completeness of information in this document.
--- NOTE | 2024-07-18 23:00 | XR_ITS ---
The [address] [address] Patient Name: EMIGDIO ELI MRN: [id number] date: 1965 Sex: F Assigned Patient Location: ER Current Patient Location: ER Accession/Order Number: [id number] Exam Date: 07/18/2024 23:35 Report Date: 07/19/2024 00:21 At the request of: ANA RIGGS Procedure: XR chest 2V EXAM: XR chest 2V HISTORY: cough COMPARISON: Chest radiograph 12/25/2023, chest CT 01/24/2024 TECHNIQUE: 2 views of the chest FINDINGS: Lungs symmetrically hyperinflated. Apical predominant hyperlucency. Right midlung chain sutures. Linear consolidation of the left lung base compatible with atelectasis versus scarring. No new focal consolidation or evidence of pulmonary edema. No pneumothorax or pleural effusion. Unremarkable cardiomediastinal contours. Biconcave thoracolumbar spinal curvature without acute osseous abnormality. Left chest wall implantable cardiac pacemaker with leads projecting in stable position. XR/XR chest 2V IMPRESSION: Emphysematous changes without acute cardiopulmonary findings. Electronically authenticated by: DENIZ CHANCE Date: 07/19/2024 00:21
[2024-07-18] MEDS: ONDANSETRON 4 MG RAPDIS TABLET SL (23:36)
[2024-07-18 23:53] LABS: Influenza Virus A Antigen Negative; Influenza Virus B Antigen Negative; Internal Control Within Normal Limits; SARS-CoV-2 Ag POSITIVE (NEGATIVE)
[2024-07-18 23:54] LABS: Internal Control Within Normal Limits
--- NOTE | 2024-07-19 00:39 | ED_ITS ---
HPI HPI - General Adult General Chief complaint: Upper Respiratory Infection Stated complaint: Fever, Nausea/Vomiting Time Seen by Provider: 07/18/24 22:54 Source: patient Mode of arrival: walk-in Limitations: no limitations History of Present Illness HPI narrative: 58-year-old female to the emergency department with chief complaint of flulike illness. Patient reports symptoms began cough, nasal discharge, sore throat, nausea and vomiting today. She denies any major medical problems. She denies any chest pain or shortness of breath. She reports fevers she has been taking Tylenol. Related Data Home Medications ?Medication ?Instructions ?Recorded ?Confirmed bupropion HCl 300 mg 24 hr tablet, 300 mg PO DAILY 09/25/23 12/27/23 extended release cholecalciferol (vitamin D3) 50 50 mcg PO DAILY 09/25/23 12/27/23 mcg (2,000 unit) capsule citalopram 20 mg tablet 20 mg PO DAILY 09/25/23 12/27/23 lamotrigine 25 mg tablet 50 mg PO BEDTIME 09/25/23 12/27/23 lansoprazole 30 mg capsule,delayed 30 mg PO DAILY 09/25/23 12/27/23 release levothyroxine 125 mcg tablet 125 mcg PO DAILY 09/25/23 12/27/23 simvastatin 20 mg tablet 20 mg PO DAILY 09/25/23 12/27/23 docusate sodium 100 mg capsule 100 mg PO PRN 12/22/23 12/27/23 (Col-Rite) loratadine 10 mg tablet (Allergy 10 mg PO DAILY 12/22/23 12/27/23 Relief (loratadine)) Previous Rx's ?Medication ?Instructions ?Recorded ciprofloxacin HCl 500 mg tablet 500 mg PO Q12H #14 tabs 12/27/23 (Cipro) metronidazole 500 mg tablet 500 mg PO Q8H 7 days #21 tabs 12/27/23 ondansetron 4 mg disintegrating 4 mg PO Q6H PRN nausea and 12/27/23 tablet vomiting #20 tabs sucralfate 1 gram tablet 1 g PO ACHS #120 tabs 12/27/23 metoclopramide HCl 10 mg tablet 10 mg PO ACHS 7 days #28 tabs 12/28/23 (Reglan) albuterol sulfate 2.5 mg/3 mL 2.5 mg (3 mL) inhalation Q4H PRN 07/19/24 (0.083 %) solution for nebulization shortness of breath or wheezing #90 mL gjatxopojyypola-cpyvtlwrcanswpc-[place] 5 ml PO Q4H PRN cold symptoms #118 07/19/24 2 mg-30 mg-10 mg/5 mL oral syrup mL (Bromfed DM) ondansetron 4 mg disintegrating 4 mg PO Q8H PRN nausea and 07/19/24 tablet vomiting 4 days #16 tabs prednisone 20 mg tablet 40 mg (2 x 20 mg) PO DAILY 5 days 07/19/24 #10 tabs Allergies Allergy/AdvReac Type Severity Reaction Status Date / Time codeine Allergy Mild Vomiting Verified 07/18/24 22:27 oxycodone (From Percocet) Allergy Mild Vomiting Verified 07/18/24 22:27 promethazine Allergy Mild Agitated Verified 07/18/24 22:27 Sulfa (Sulfonamide Allergy Mild Vomiting Verified 07/18/24 22:27 Antibiotics) hydromorphone (From Dilaudid) AdvReac Mild Rash Verified 07/18/24 22:27 prochlorperazine (From AdvReac Mild Unknown Verified 07/18/24 22:27 Compazine) Opioid HPI Opioid Management Most Recent Opioid Data: Last Pain Scale 8 06/19/24 22:15 06/19/24 Last ORT Total Score 7 12/27/23 23:04 12/27/23 Last ORT Risk Category Moderate Risk 12/27/23 23:04 12/27/23 Review of Systems ROS Status of ROS 10 or more systems reviewed and unremark able except as noted in history and below [facility] Medical History (Updated 07/19/24 @ 00:33 by Sanford Leblanc MD) Hypothyroid ?E03.9 - Hypothyroidism, unspecified (ICD-10) Esophagitis ?K20.90 - Esophagitis, unspecified without bleeding (ICD-10) Pancolitis ?K51.00 - Ulcerative (chronic) pancolitis without complications (ICD-10) Pulmonary hypertension ?I27.20 - Pulmonary hypertension, unspecified (ICD-10) Cholecystitis ?K81.9 - Cholecystitis, unspecified (ICD-10) Depression ?F32.A - Depression, unspecified (ICD-10) On home O2 ?Z99.81 - Dependence on supplemental oxygen (ICD-10) Hyperthyroidism ?E05.90 - Thyrotoxicosis, unspecified without thyrotoxic crisis or storm (I CD-10) Scoliosis ?M41.9 - Scoliosis, unspecified (ICD-10) Emphysema lung ?J43.9 - Emphysema, unspecified (ICD-10) Nausea & vomiting ?R11.2 - Nausea with vomiting, unspecified (ICD-10) Pacemaker ?Z95.0 - Presence of cardiac pacemaker (ICD-10) COPD (chronic obstructive pulmonary disease) ?J44.9 - Chronic obstructive pulmonary disease, unspecified (ICD-10) Surgical History History of tonsillectomy ?Z90.89 - Acquired absence of other organs (ICD-10) H/O right wrist surgery ?Z98.890 - Other specified postprocedural states (ICD-10) H/O colectomy ?Z90.49 - Acquired absence of other specified parts of digestive tract (ICD- 10) Family History Mother Family history of COPD (chronic obstructive pulmonary disease) Grandmother Family history of cancer Sister Family history of diabetes mellitus Father Family history of myocardial infarction Social History (Updated 12/27/23 @ 23:45 by Meghana Lo) Within the past year, how often did you have a drink containing alcohol: never Within the past year, how often did you have six or more drinks on one occasion: never Score interpretation: A score less than 3 is consistent with normal alcohol consumption. 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 Known occupational exposures/hazards: No Highest level of school completed/degree received: 10th grade Do you want help with school or training: No Are you now , , , , never or living with a partner: In a typical week, how many times do you talk on the telephone with family, friends, or neighbors: 3 or more times per week How often do you get together with friends or relatives: 3 or more times per week How often do you attend pentecostal or methodist services: 4 or more times per year Do you belong to any clubs or organizations such as pentecostal groups unions, fraternal or athletic groups, or school groups: yes Total score: 3 Score interpretation: A score of greater than or equal to 2 indicates the lowest level of social isolation. Little interest or pleasure in doing things: not at all Feeling down, depressed, or hopeless: not at all Feel stressed/tense/nervous/anxious/difficulty sleeping: to some extent Life stressors: unknown source of stress Due to disability, difficulty making decisions: No Do you think of yourself as: bisexual Gender Identity: female Exam Narrative Exam Narrative: VITALS: I have reviewed the triage vital signs. GENERAL: Well developed, well appearing adult in no acute distress. NEURO: Alert and oriented. Moves all extremities. Face is symmetric and expressive. EYES: PERRL. No scleral icterus or conjunctival injection. No discharge. HENT: Normocephalic, atraumatic. Hearing is grossly intact. Nares grossly patent and without discharge. Mucous membranes moist. NECK: No JVD. Patient moves neck without restriction. CARDIO: Rhythm regular. Normal rate. No murmur, rub, or gallop. Pulses equal bilaterally in the upper and lower extremity. No lower extremity edema. PULM: Rhonchi that clear with coughing. no conversational dyspnea. No splinting, stridor, or accessory muscle use. GI/: Abdomen is soft and non-tender. Normoactive bowel sounds. EXTREMITIES: Symmetric muscle bulk. No joint swelling. No clubbing, cyanosis, or deformity. SKIN: Warm and dry. Normal turgor. No rash or lesions appreciated. PSYCH: Mood, affect, and interaction is appropriate to the setting. Constitutional Vital Signs, click to edit/add: Last Vital Signs Temp 98.6 F 07/18/24 22:23 Pulse 91 H 07/18/24 22:23 BP 142/70 H 07/18/24 22:23 Pulse Ox 94 L 07/18/24 22:23 O2 Del Method Room Air 07/18/24 22:23 Course Vital Signs Vital signs: Vital Signs Temperature 98.6 F 07/18/24 22:23 Pulse Rate 91 H 07/18/24 22:23 Blood Pressure 142/70 H 07/18/24 22:23 Pulse Oximetry 94 L 07/18/24 22:23 Oxygen Delivery Method Room Air 07/18/24 22:23 Temperature 98.6 F 07/18/24 22:23 Pulse Rate 91 H 07/18/24 22:23 Blood Pressure 142/70 H 07/18/24 22:23 Pulse Oximetry 94 L 07/18/24 22:23 Oxygen Delivery Method Room Air 07/18/24 22:23 Medical Decision Making MDM Narrative Medical decision making narrative: 58-year-old female to the emergency department chief complaint of flulike illness. Vital stable, the patient is afebrile. She has rhonchi that clear with coughing on exam. Respiratory swabs, chest x-ray ordered. Zofran for nausea. Patient's nausea is much improved after the Zofran. Her chest x-ray is unremarkable except for some emphysematous changes. She has COVID-19. Prednisone, albuterol given her emphysematous changes. Bromfed for the cough. Zofran for her nausea and vomiting. Return precautions were discussed. All questions were answered. The patient was discharged home Medical Records Medical records reviewed: Yes I reviewed the patient's medical records Lab Data Lab results reviewed: Yes I reviewed the patient's lab results Labs: Lab Results 07/18/24 Range/Units 23:10 Influenza Type A Ag Negative Influenza Type B Ag Negative SARS-CoV-2 Ag (CV2AG) Positive A (NEGATIVE) Imaging Data Chest x-ray: Radiologist's impression: ITS Impressions Chest X-Ray 07/18/24 23:00 IMPRESSION: Emphysematous changes without acute cardiopulmonary findings. Electronically authenticated by: DENIZ CHANCE Date: 07/19/2024 00:21 Discharge Plan Discharge Chief Complaint: Upper Respiratory Infection Clinical Impression: COVID-19 Patient Disposition: Home, Self-Care Time of Disposition Decision: 00:33 Condition: Good Mode of Transportation: Private Vehicle Prescriptions / Home Meds: New yycpotmxvkplhby-vnzwxdnnl-TM [Bromfed DM] 2-30-10 mg/5 mL syrup 5 ml PO Q4H PRN (Reason: cold symptoms) Qty: 118 0RF prednisone 20 mg tablet 40 mg PO DAILY 5 Days Qty: 10 0RF albuterol sulfate 2.5 mg /3 mL (0.083 %) solution for nebulization 2.5 mg inhalation Q4H PRN (Reason: shortness of breath or wheezing) Qty: 90 0RF ondansetron 4 mg tablet,disintegrating 4 mg PO Q8H PRN (Reason: nausea and vomiting) 4 Days Qty: 16 0RF No Action bupropion HCl 300 mg tablet extended release 24 hr 300 mg PO DAILY cholecalciferol (vitamin D3) 50 mcg (2,000 unit) capsule 50 mcg PO DAILY citalopram 20 mg tablet 20 mg PO DAILY lamotrigine 25 mg tablet 50 mg PO BEDTIME lansoprazole 30 mg capsule,delayed release(DR/EC) 30 mg PO DAILY levothyroxine 125 mcg tablet 125 mcg PO DAILY simvastatin 20 mg tablet 20 mg PO DAILY loratadine [Allergy Relief (loratadine)] 10 mg tablet 10 mg PO DAILY docusate sodium [Col-Rite] 100 mg capsule 100 mg PO PRN sucralfate 1 gram Tablet 1 g PO ACHS Qty: 120 11RF Patient Comments: pt. was dc'd with these scripts has not started ciprofloxacin HCl [Cipro] 500 mg tablet 500 mg PO Q12H Qty: 14 0RF Patient Comments: pt. was dc'd with these scripts has not started metronidazole 500 mg tablet 500 mg PO Q8H 7 Days Qty: 21 0RF Patient Comments: pt. was dc'd with these scripts has not started ondansetron 4 mg tablet,disintegrating 4 mg PO Q6H PRN (Reason: nausea and vomiting) Qty: 20 3RF Patient Comments: pt. was dc'd with these scripts has not started metoclopramide HCl [Reglan] 10 mg tablet 10 mg PO ACHS 7 Days Qty: 28 0RF Print Language: Italian Instructions: COVID-19 (Coronavirus Disease 2019) (ED) Additional Instructions: Call the office of your primary care doctor to arrange for follow-up within the above-stated timeframe. Your ED visit was focused on your acute issue and does not replace primary care. You should review your labs, imaging, and diagnoses from this ED visit with your primary care physician. There may be non-emergent/ incidental findings that need further evaluation. You should review your vital signs including blood pressure with your PCP. If you were prescribed medications you should discuss possible side-effects and drug interactions with your pharmacist. Call 911 or go to the nearest Emergency Department if you develop any new or worsening symptoms. Seek immediate medical attention if you develop: worsening shortness of breath, difficulty breathing, chest pain, nausea, vomiting, weakness, numbness, tingling, excessive sweating, loss of motion in your arms or legs, or any new or worsening symptoms. Referrals: Paulo Turner MD [Primary Care Provider] - 1 week
[2024-07-19 00:49] VITALS: BP 138/72; PULSE 78; O2SAT 95
== END 2024-07-19 00:51 | disposition home or self-care (01) ==
PROVIDERS: Emergency Provider Student in an Organized Health Care Education/Training Program; PCP Family Medicine
DX: U07.1 COVID-19 (principal)
CPT/HCPCS: 71046; 87804; 87811; 99284; Q0162

== ENCOUNTER 2024-07-19 16:33 | Inpatient (IN) | payer OTHER, SELFPAY ==
--- OUTSIDE RECORDS SUMMARY | 2024-07-19 16:41 | XMS_ITS | CCD ---
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 Hyperlipidemia. Surgical History She has a [...] intact. Crani (more content not included)... Normal [facility] EDPROVon 01-02-2024 EDPROV HPI Chief Complaint Patient [...] Glucose, Urine Negative Bilirubin, Urine Negative Specific [place], Urine 1.041 (*) Ketones, Urine Trace (*) [...] Procedure Abnormality Status --------- ------ CBC auto differential[[id number]] Abnormal Final result Please view results for [...] need admi (more content not included)... Normal [facility] T4, FREEon 01-02-2024 THYROXINE (T4) FREE (NG/DL) IN SER/PLAS 1.66 ng/dL Normal 0.71-1.85 [facility] Comment on above: Performed By: #### L [id number] ####[facility] ([facility])[address] [place] [address] TSH3 REFLEX TO FT4on 024 THYROTROPIN (MIU/L) IN SER/PLAS BY DETECTION LIMIT <= 0.05 MIU/L 0.01 mIU/L Low 0.34-5.60 [facility] Comment on above: Performed By: #### L [id number] #### [facility] ([facility]) [address] [place] [address] CBC WITH AUTO DIFFERENTIALon 01-01-2024 Basophils (Bld) [#/Vol] 0.02 10*3/uL Normal 0.00-0.20 [facility] Comment on above: Performed By: #### L [id number] #### [facility] ([facility]) [address] [place] [address] Basophils/100 WBC (Bld) 0.6 % Normal 0.0-1.0 [facility] Comment on above: Performed By: #### L [id number] #### [facility] ([facility]) [address] [place] [address] Eosinophils (Bld) [#/Vol] 0.09 10*3/uL Normal 0.00-0.50 [facility] Comment on above: Performed By: #### L [id number] #### [facility] ([facility]) [address] [place] [address] Eosinophils/100 WBC (Bld) 2.6 % Normal 0.0-6.0 [facility] Comment on above: Performed By: #### L [id number] #### [facility] [address] [place] [address] Erythrocyte distribution width (RBC) [Ratio] 13.6 % Normal 11.5-15.0 [facility] Comment on above: Performed By: #### L [id number] #### [facility] [address] [place] [address] ERYTHROCYTE MEAN CORPUSCULAR HEMOGLOBIN CONCENTRATION (G/DL) BY AUTOMATED 33.9 g/dL Normal 32.0-35.0 [facility] Comment on above: Performed By: #### L [id number] #### [facility] [address] [place] [address] Hematocrit (Bld) [Volume fraction] 42.2 % Normal 36.0-48.0 [facility] Comment on above: Performed By: #### L [id number] #### [facility] ([facility]) [address] [place] [address] Hemoglobin (Bld) [Mass/Vol] 14.3 g/dL Normal 12.0-15.0 [facility] Comment on above: Performed By: #### L [id number] #### [facility] ([facility]) [address] [place] [address] Immature granulocytes (Bld) [#/Vol] 0.02 10*3/uL Normal 0.00-0.20 [facility] Comment on above: Performed By: #### L [id number] #### [facility] ([facility]) [address] [place] [address] Immature granulocytes/100 WBC (Bld) 0.6 % Normal 0.0-1.0 [facility] Comment on above: Performed By: #### L [id number] #### [facility] ([facility]) [address] [place] [address] Lymphocytes (Bld) [#/Vol] 1.11 10*3/uL Low 1.20-4.00 [facility] Comment on above: Performed By: #### L [id number] #### [facility] ([facility]) [address] [place] [address] Lymphocytes/100 WBC (Bld) 32.1 % Normal 20.0-45.0 [facility] Comment on above: Performed By: #### L [id number] #### [facility] ([facility]) [address] [place] [address] MCH (RBC) [Entitic mass] 29.0 pg Normal 27.0-33.0 [facility] Comment on above: Performed By: #### L [id number] #### [facility] ([facility]) [address] [place] [address] MCV (RBC) [Entitic vol] 85.6 fL Normal 82.0-98.0 [facility] Comment on above: Performed By: #### L [id number] #### [facility] [address] [place] [address] Monocytes (Bld) [#/Vol] 0.28 10*3/uL Normal 0.10-1.00 [facility] Comment on above: Performed By: #### L [id number] #### [facility] [address] [address] Monocytes/100 WBC (Bld) 8.1 % Normal 5.0-12.0 [facility] Comment on above: Performed By: #### L [id number] #### [facility] ([facility]) [address] [address] Neutrophils (Bld) [#/Vol] 1.94 10*3/uL Normal 1.60-7.60 [facility] Comment on above: Performed By: #### L [id number] #### [facility] ([facility]) [address] [place] [address] Neutrophils/100 WBC (Bld) 56.0 % Normal 40.0-72.0 [facility] Comment on above: Performed By: #### L [id number] #### [facility] ([facility]) [address] [place] [address] NRBC (PER 100 WBCS) BY AUTOMATED COUNT 0.0 % Normal 0 [facility] Comment on above: Performed By: #### L [id number] #### [facility] ([facility]) [address] [place] [address] PLATELETS (10*3/UL) IN BLOOD AUTOMATED COUNT 222 10*3/uL Normal 150-400 [facility] Comment on above: Performed By: #### L [id number] #### [facility] ([facility]) [address] [place] [address] RBC (Bld) [#/Vol] 4.93 10*6/uL Normal 3.80-5.00 [facility] Comment on above: Performed By: #### L [id number] #### [facility] ([facility]) [address] [place] [address] WBC (Bld) [#/Vol] 3.46 10*3/uL Low 4.00-10.60 [facility] Comment on above: Performed By: #### L [id number] #### [facility] ([facility]) [address] [place] [address] COMPREHENSIVE METABOLIC PANE Balwinder 01-01-2024 Albumin [Mass/Vol] 4.1 g/dL Normal 3.5-5.7 [facility] Comment on above: Performed By: #### L [id number] #### [facility] ([facility]) [address] [place] [address] ALP [Catalytic activity/Vol] 81 U/L Normal 34-104 [facility] Comment on above: Performed By: #### L [id number] #### [facility] ([facility]) [address] [place] [address] ALT [Catalytic activity/Vol] 10 U/L Normal 7-52 [facility] Comment on above: Performed By: #### L [id number] #### [facility] ([facility]) [address] [place] [address] Anion gap [Moles/Vol] 14 mmol/L Normal 7-20 [facility] Comment on above: Performed By: #### L [id number] #### [facility] ([facility]) [address] [place] [address] AST [Catalytic activity/Vol] 20 U/L Normal 13-39 [facility] Comment on above: Performed By: #### L [id number] #### [facility] ([facility]) [address] [place] [address] Bilirubin [Mass/Vol] 0.5 mg/dL Normal 0.3-1.0 [facility] Comment on above: Performed By: #### L [id number] #### [facility] ([facility]) [address] [place] [address] Calcium [Mass/Vol] 9.6 mg/dL Normal 8.6-10.3 [facility] Comment on above: Performed By: #### L [id number] #### [facility] ([facility]) [address] [place] [address] Chloride [Moles/Vol] 106 mmol/L Normal 98-107 [facility] Comment on above: Performed By: #### L [id number] #### [facility] [address] [place] [address] CO2 [Moles/Vol] 24 mmol/L Normal 21-31 [facility] Comment on above: Performed By: #### L [id number] #### [facility] ([facility]) [address] [place] [address] Creatinine [Mass/Vol] 0.82 mg/dL Normal 0.60-1.20 [facility] Comment on above: Performed By: #### L [id number] #### [facility] ([facility]) [address] [place] [address] GLOMERULAR FILTRATION RATE ML/MIN/1.73 SQ M.PREDICTED 82.3 mL/min/1.73m*2 Normal >60.0 [facility] Comment on above: Result Comment: [facility]???s estimated glomerular filtration rate (eGFR) will no [...] group of individuals. Performed By: #### L [id number] #### [facility] ([facility]) [address] [place] [address] Glucose [Mass/Vol] 86 mg/dL Normal 70-100 [facility] Comment on above: Performed By: #### L [id number] #### [facility] [address] [place] [address] Potassium [Moles/Vol] 3.8 mmol/L Normal 3.5-5.1 [facility] Comment on above: Performed By: #### L [id number] #### [facility] [address] [place] [address] Protein [Mass/Vol] 6.7 g/dL Normal 6.0-8.3 [facility] Comment on above: Performed By: #### L [id number] #### [facility] ([facility] [address] [place] [address] Sodium [Moles/Vol] 140 mmol/L Normal 136-145 [facility] on above: Performed By: #### L [id number] #### [facility] ([facility]) [address] [place] [address] Urea nitrogen [Mass/Vol] 10 mg/dL Normal 7-25 [facility] Comment on above: Performed By: #### L [id number] #### [facility] ([facility]) [address] [place] [address] UREA NITROGEN/CREATININE (MASS RATIO) IN SER/PLAS 12.2 Normal [facility] Comment on above: Performed By: #### L [id number] #### [facility] (BEAKER) [address] [place] [address] CT ABDOMEN PELVIS W IV CONTR Marquita [...] Electronically signed: Shari Knight Invalid Interpretation Code [facility] CT HEAD WO IV CONTRASTon CT HEAD [...] signed: Shari Turner Vldtd Invalid Interpretation Code [facility] CTA HEAD W IV CONTRASTon CTA HEAD [...] signed: Shari Turner Vldtd Invalid Interpretation Code [facility] CTA NECK W IV CONTRASTon CTA NECK [...] Shari Mahoney. Yue Knight Invalid Interpretation Code [facility] EDNURSon 01-01-2024 EDNURS Pt arrives with avani maldonado to triage, states that pt has been seen at [place] [facility] multiple times for increased dizziness, vomiting, and diarrhea for the past 2 weeks. Pt states that she is suppose to get an MRI of her brain done at [facility] but has not scheduled it yet. Reports multiple falls d/t dizziness. Normal [facility] EDPROVon 01-01-2024 EDPROV [facility] [address] [facility] [id number] EMERGENCY DEPARTMENT ENCOUNTER 01/01/2024 CHIEF COMPLAINT Chief [...] Abnormal ECG, COPD (chronic obstructive pulmonary disease) ([facility]), and Hyperlipidemia. SURGICAL HISTORY has a [...] Motor functio (more content not included)... Normal [facility] ETHANOLon 01-01-2024 ETHANOL (MG/DL) IN SER/PLAS <10 Normal [facility] Comment on above: Performed By: #### L [id number] ####[facility] (BEAKER)[address] [place] [address] ETHANOL CALCULATED (%) [facility] Comment on above: Performed By: #### L [id number] ####[facility] ([facility])[address] [place] [address] LACTIC ACID WITH 4 HOUR REFL EXon 01-01-2024 LACTATE (MMOL/L) IN SER/PLAS 0.8 mmol/L Normal 0.5-2.2 [facility] Comment on above: Performed By: #### L [id number] #### [facility] ([facility]) [address] [place] [address] LIPASEon 01-01-2024 LIPASE (U/L) IN SER/PLAS 47 U/L Normal 11-82 [facility] Comment on above: Performed By: #### L [id number] #### [facility] ([facility]) [address] [facility] [place] [address] MAGNESIUMon 01-01-2024 Magnesium [Mass/Vol] 2.1 mg/dL Normal 1.9-2.7 [facility] Comment on above: Performed By: #### L [id number] #### [facility] ([facility]) [address] [place] [address] T4, FREEon 01-01-2024 THYROXINE (T4) FREE (NG/DL) IN SER/PLAS 1.44 ng/dL Normal 0.71-1.85 [facility] Comment on above: Performed By: #### L [id number] ####[facility] ([facility])[address] [place] [address] TOXICOLOGY PANEL URINEon AMPHETAMINE+METHAMPHET AMINE SCREEN (PRESENCE) IN URINE Negative Normal Negative [facility] Comment on above: Performed By: #### L [id number] #### [facility] ([facility]) [address] [place] [address] BARBITURATES PRESENCE IN URINE BY SCREEN METHOD Negative Normal Negative [facility] Comment on above: Performed By: #### L [id number] #### [facility] ([facility]) [address] [place] [address] Benzodiazepines Ql (U) Negative Normal Negative [facility] Comment on above: Performed By: #### L [id number] #### [facility] [address] [place] [address] CANNABINOID (PRESENCE) IN URINE BY SCREEN METHOD Negative Normal Negative [facility] Comment on above: Performed By: #### L [id number] #### [facility] (BEAKER) [address] [place] [address] Cocaine Ql (U) Negative Normal Negative [facility] Comment on above: Performed By: #### L [id number] #### [facility] [address] [place] [address] METHADONE (PRESENCE) IN URINE BY SCREEN METHOD Negative Normal Negative [facility] Comment on above: Performed By: #### L [id number] #### [facility] (BEAKER) [address] [place] [address] OPIATES (PRESENCE) IN URINE BY SCREEN METHOD Negative Normal Negative [facility] Comment on above: Performed By: #### L [id number] #### [facility] (BEAKER) [address] [place] [address] PHENCYCLIDINE PRESENCE IN URINE BY SCREEN METHOD Negative Normal Negative [facility] Comment on above: Performed By: #### L [id number] #### [facility] (BEAKER) [address] [place] [address] Propoxyphene Screen Ql (U) Negative Normal Negative [facility] Comment on above: Performed By: #### L [id number] #### [facility] (BEAKER) [address] [place] [address] TRICYCLIC ANTIDEPRESSANTS (PRESENCE) IN URINE Negative Normal Negative [facility] Comment on above: Performed By: #### L [id number] #### [facility] (BEAKER) [address] [place] [address] TROPONIN Ion 01-01-2024 Troponin I.cardiac [Mass/Vol] 0.00 ng/mL Normal 0.00-0.04 [facility] Comment on above: Performed By: #### L [id number] ####[facility] ([facility])[address] [place] [address] TSH3 REFLEX TO FT4on 024 THYROTROPIN (MIU/L) IN SER/PLAS BY DETECTION LIMIT <= 0.05 MIU/L 0.02 mIU/L Low 0.34-5.60 [facility] Comment on above: Performed By: #### L [id number] #### [facility] ([facility]) [address] [place] [address] URINALYSIS WITH REFLEX CULTU REon 01-01-2024 BILIRUBIN, TOTAL PRESENCE IN URINE Negative Normal Negative [facility] Comment on above: Order Comment: Micro scopics not performed on urines with negative chemical reactions unless requested on original order. Performed By: #### L [id number] #### [facility] ([facility]) [address] [place] [address] Clarity (U) Clear Normal Clear [facility] Comment on above: Order Comment: Micro scopics not performed on urines with negative chemical reactions unless requested on original order. Performed By: #### L [id number] #### [facility] ([facility]) [address] [place] [address] Color (U) Straw Abnormal Yellow [facility] Comment on above: Order Comment: Micro scopics not performed on urines with negative chemical reactions unless requested on original order. Performed By: #### L [id number] #### [facility] ([facility]) [address] [place] [address] Glucose (U) [Mass/Vol] Negative Normal [facility] Comment on above: Order Comment: Micro scopics not performed on urines with negative chemical reactions unless requested on original order. Performed By: #### L [id number] #### [facility] ([facility]) [address] [place] [address] HEMOGLOBIN PRESENCE IN URINE Negative Normal Negative [facility] Comment on above: Order Comment: Micro scopics not performed on urines with negative chemical reactions unless requested on original order. Performed By: #### L [id number] #### [facility] ([facility]) [address] [place] [address] Ketones Ql (U) Trace Abnormal Negative [facility] Comment on above: Order Comment: Micro scopics not performed on urines with negative chemical reactions unless requested on original order. Performed By: #### L [id number] #### [facility] ([facility]) [address] [place] [address] LEUKOCYTE ESTERASE PRESENCE IN URINE BY TEST STRIP Negative Normal Negative [facility] Comment on above: Order Comment: Micro scopics not performed on urines with negative chemical reactions unless requested on original order. Performed By: #### L [id number] #### [facility] ([facility]) [address] [place] [address] NITRITE PRESENCE IN URINE Negative Normal Negative [facility] Comment on above: Order Comment: Micro scopics not performed on urines with negative chemical reactions unless requested on original order. Performed By: #### L [id number] #### [facility] ([facility]) [address] [place] [address] pH (U) 6.0 [pH] Normal 5.0-8.0 [facility] Comment on above: Order Comment: Micro scopics not performed on urines with negative chemical reactions unless requested on original order. Performed By: #### L [id number] #### [facility] ([facility]) [address] [place] [address] Protein (U) [Mass/Vol] Negative Normal Negative [facility] Comment on above: Order Comment: Micro scopics not performed on urines with negative chemical reactions unless requested on original order. Performed By: #### L [id number] #### [facility] ([facility]) [address] [place] [address] Specific gravity (U) [Rel density] 1.041 High 1.015-1.02 0 [facility] Comment on above: Order Comment: Micro scopics not performed on urines with negative chemical reactions unless requested on original order. Performed By: #### L [id number] #### [facility] (BEAKER) [address] [place] [address] Office Visiton 10-24-2023 Follow-up visit [id number] Dariel Eli S 1965 F Date Provider Department Center 10/24/2023 MARI ACHARYA [facility] Family History Problem Relation Age of Onset Alzheimer's disease Father Family Status - Relation Status Age at Mother Alive Father Level of Service:95119 IN OFFICE/OUTPATIENT ESTABLISHED MOD MDM 30 MIN Normal [facility] Orders Onlyon 09-01-2023 Orders Only [id number] Dariel Eli S 1965 F Date Provider Department Center 09/01/2023 Jony8MARVIN ROTH ALECIA [facility] Family History Problem Relation Age of Onset Alzheimer's disease Father Family Status - Relation Status Age at Mother Alive Father Normal [facility] CBC AUTO DIFFon 01-07-2023 BASO # 0.0 103/ul Normal 0.0-0.1 Comment on above: Performed By: #### C BC ####[facility] [address] [place] [address]Dr. Shahbaz Rogel Basophils/100 WBC (Bld) 0.3 % Normal 0.2-2.0 [facility] Comment on above: Performed By: #### C BC ####[facility] [address] [place] [address]Dr. Shahbaz Rogel EO # 0.0 103/ul Normal 0.0-0.7 [facility] Comment on above: Performed By: #### C BC ####[facility] [address] [place] [address]Dr. Shahbaz Rogel Eosinophils/100 WBC (Bld) 0.0 % Critically low 0.9-7.0 [facility] Comment on above: Performed By: #### C BC ####[facility] [address] [place], [place] [address]Dr. Shahbaz Rogel Erythrocyte distribution width (RBC) [Ratio] 13.5 % Normal 11.0-15.0 [facility] Comment on above: Performed By: #### C BC ####[facility] [address] [place] [address]Dr. Shahbaz Rogel Hematocrit (Bld) [Volume fraction] 36.4 % Normal 36.0-48.0 Comment on above: Performed By: #### C BC ####[facility] [address] [place] [address]Dr. Shahbaz Rogel Hemoglobin (Bld) [Mass/Vol] 11.6 g/dL Critically low 12.0-16.0 Comment on above: Performed By: #### C BC ####[facility] [address] [place], [place] [address]DrChen Shahbaz Rogel IG # 0.06 10e3/ul Critically high 0.00-0.03 Comment on above: Performed By: #### C BC ####[facility] Jrwvj[address] [place], [place] [address]DrChen Shahbaz Juan F IG % 1.5 % Critically high 0.0-0.5 Comment on above: Performed By: #### C BC ####[facility] Bv[address]vb[address] [place], [place] [address]DrChen Shahbaz Rogel LYMPH # 0.7 103/ul Critically low 1.2-3.8 Comment on above: Performed By: #### C BC ####[facility] S[address]av[address] [place], [place] [address]DrChen Shahbaz Rogel Lymphocytes/100 WBC (Bld) 16.6 % Critically low 20.5-60.0 Comment on above: Performed By: #### C BC ####[facility] Hantuzrxiz[address] [place], [place] [address]DrChen Shahbaz Rogel MANUAL DIFF REQ NO Normal Comment on above: Performed By: #### C BC ####[facility] [address]th[address]icc[address] [place], [place] [address]DrChen Shahbaz Rogel MCH (RBC) [Entitic mass] 27.6 pg Normal 26.7-34.0 Comment on above: Performed By: #### C BC ####[facility] [address] [place] [address]Dr. Shahbaz Rogel MCHC (RBC) [Mass/Vol] 31.9 g/dL Normal 29.9-35.2 Comment on above: Performed By: #### C BC ####[facility] [address] [place] [address]Dr. Shahbaz Rogel MCV (RBC) [Entitic vol] 86.5 fL Normal 81.0-99.0 Comment on above: Performed By: #### C BC ####[facility] [address] [place], [place] [address]Dr. Shahbaz Rogel MONO # 0.2 103/ul Critically low 0.3-0.8 Comment on above: Performed By: #### C BC ####[facility] Krfkfdsuw[address] [place], [place] [address]Dr. Shahbaz Rogel Monocytes/100 WBC (Bld) 5.0 % Normal 1.7-12.0 Comment on above: Performed By: #### C BC ####[facility] N[address]lfs[address] [place], [place] [address]Dr. Shahbaz Rogel NEUT # 3.1 103/ul Normal 1.4-6.5 Comment on above: Performed By: #### C BC ####[facility] Ndgmegdrpt[address] [place], [place] [address]Dr. Shahbaz Rogel Neutrophils/100 WBC (Bld) 76.6 % Critically high 43.0-75.0 [facility] Comment on above: Performed By: #### C BC ####[facility] Yhtedwgret[address] [place], [place] [address]DrChen Rogel Platelet mean volume (Bld) [Entitic vol] 9.9 fL Normal 9.5-13.5 [facility] Comment on above: Performed By: #### C BC ####[facility] Uxeldwnexv[address] [place], [place] [address]Dr. Shahbaz Rogel PLT 194 103/ul Normal 150-450 [facility] Comment on above: Performed By: #### C BC ####[facility] [address] [place] [address]Dr. Shahbaz Rogel RBC 4.21 106/ul Normal 4.20-5.40 Comment on above: Performed By: #### C BC ####[facility] [address] [place] [address]Dr. Shahbaz Rogel WBC 4.0 103/ul Normal 4.0-11.0 [facility] Comment on above: Performed By: #### C BC ####[facility] [address] [place] [address]Dr. Shahbaz Rogel PROF CHEM 8 (BAS METB)on Anion gap [Moles/Vol] 9.5 mmol/L Normal Comment on above: Performed By: #### B MP ####[facility] X[address]yt[address] [place], [place] [address]Dr. Shahbaz Rogel Calcium [Mass/Vol] 8.8 mg/dL Normal 8.5-10.1 [facility] Comment on above: Performed By: #### B MP ####[facility] [address]wgzvzjv[address] [place], [place] [address]Dr. Shahbaz Rogel Chloride [Moles/Vol] 106 mmol/L Normal 98-107 [facility] Comment on above: Performed By: #### B MP ####[facility] Az[address]ys[address] [place], [place] [address]Dr. Shahbaz Rogel CO2 [Moles/Vol] 29.6 mmol/L Normal 21.0-32.0 [facility] Comment on above: Performed By: #### B MP ####[facility] Snhqkwvaqq[address] [place], [place] [address]Dr. Shahbaz Rogel Creatinine [Mass/Vol] 0.80 mg/dL Normal 0.55-1.02 [facility] Comment on above: Performed By: #### B MP ####[facility] Rqudwpsw[address] [place], [place] [address]Dr. Shahbaz Rogel EGFR-AF ITALIAN >60 Normal >=60 [facility] Comment on above: Performed By: #### B MP ####[facility] [address] [place] [address]Dr. Shahbaz Juan F EGFR-NON AF ITALIAN >60 Normal >=60 Comment on above: Performed By: #### B MP ####[facility] [address]ff[address] [place] [address]Dr. Shahbaz Rogel Glucose [Mass/Vol] 137 mg/dL Critically high 74-106 [facility] Comment on above: Performed By: #### B MP ####[facility] [address]xc[address]pass[address] [place] [address]Dr. Shahbaz Rogel Potassium [Moles/Vol] 4.1 mmol/L Normal 3.5-5.1 Comment on above: Performed By: #### B MP ####[facility] Nnxrxsvwse[address] [place], [place] [address]Dr. Shahbaz Rogel Sodium [Moles/Vol] 141 mmol/L Normal 136-145 Comment on above: Performed By: #### B MP ####[facility] [address] [place], [place] [address]Dr. Shahbaz Rogel Urea nitrogen [Mass/Vol] 18.0 mg/dL Normal 7.0-18.0 Comment on above: Performed By: #### B MP ####[facility] [address]ovqx[address]ul[address] [place], [place] [address]Dr. Shahbaz Rogel Urea nitrogen/Creatinine [Mass ratio] 22.5 mg/mg Normal Comment on above: Performed By: #### B MP ####[facility] [address] [place], [place] [address]Dr. Shahbaz Rogel CBC AUTO DIFFon 01-06-2023 BASO # 0.0 103/ul Normal 0.0-0.1 Comment on above: Performed By: #### C BC ####[facility] Kr[address]zu[address] [place], [place] [address]Dr. Shahbaz Rogel Basophils/100 WBC (Bld) 0.0 % Critically low 0.2-2.0 Comment on above: Performed By: #### C BC ####[facility] Hz[address]ycbiqt264[address] [place] [address]Dr. Shahbaz Rogel EO # 0.0 103/ul Normal 0.0-0.7 [facility] Comment on above: Performed By: #### C BC ####[facility] Fekvdvcogv[address] [place], [place] [address]Dr. Shahbaz Rogel Eosinophils/100 WBC (Bld) 0.0 % Critically low 0.9-7.0 Comment on above: Performed By: #### C BC ####[facility] Gspkhv[address]ef[address] [place], [place] [address]Dr. Shahbaz Rogel Erythrocyte distribution width (RBC) [Ratio] 13.8 % Normal 11.0-15.0 Comment on above: Performed By: #### C BC ####[facility] Barsicxxul[address] [place], [place] [address]Dr. Shahbaz Rogel Hematocrit (Bld) [Volume fraction] 36.9 % Normal 36.0-48.0 Comment on above: Performed By: #### C BC ####[facility] Gujopbvtro[address] [place], [place] [address]Dr. Shahbaz Rogel Hemoglobin (Bld) [Mass/Vol] 11.8 g/dL Critically low 12.0-16.0 Comment on above: Performed By: #### C BC ####[facility] Lolfd[address]qxa[address] [place], [place] [address]Dr. Shahbaz Rogel IG # 0.04 10e3/ul Critically high 0.00-0.03 [facility] Comment on above: Performed By: #### C BC ####[facility] Ivnmizbafc[address] [place], [place] [address]Dr. Shahbaz Rogel IG % 1.1 % Critically high 0.0-0.5 [facility] Comment on above: Performed By: #### C BC ####[facility] Nlcmpodvaa[address] [place], [place] [address]Dr. Lilajarrod Rogel LYMPH # 0.5 103/ul Critically low 1.2-3.8 [facility] Comment on above: Performed By: #### C BC ####[facility] [address]ns[address] [place] [address]Dr. Lilajarrod Rogel Lymphocytes/100 WBC (Bld) 13.9 % Critically low 20.5-60.0 Comment on above: Performed By: #### C BC ####[facility] [address] [place] [address]Dr. Shahbaz Rogel MANUAL DIFF REQ NO Normal [facility] Comment on above: Performed By: #### C BC ####[facility] [address] [place] [address]Dr. Shahbaz Rogel MCH (RBC) [Entitic mass] 27.8 pg Normal 26.7-34.0 Comment on above: Performed By: #### C BC ####[facility] [address]wyjjuwn[address] [place], [place] [address]Dr. Shahbaz Rogel MCHC (RBC) [Mass/Vol] 32.0 g/dL Normal 29.9-35.2 Comment on above: Performed By: #### C BC ####[facility] [address]ux[address] [place], [place] [address]Dr. Shahbaz Rogel MCV (RBC) [Entitic vol] 86.8 fL Normal 81.0-99.0 Comment on above: Performed By: #### C BC ####[facility] Sar[address]arrhn[address] [place], [place] [address]Dr. Shahbaz Rogel MONO # 0.1 103/ul Critically low 0.3-0.8 [facility] Comment on above: Performed By: #### C BC ####[facility] B[address]pcfjuxcw[address] [place], [place] [address]Dr. Shahbaz Rogel Monocytes/100 WBC (Bld) 3.7 % Normal 1.7-12.0 [facility] Comment on above: Performed By: #### C BC ####[facility] Ryphngxqgz[address] [place], [place] [address]Dr. Shahbaz Rogel NEUT # 3.1 103/ul Normal 1.4-6.5 [facility] Comment on above: Performed By: #### C BC ####[facility] [address] [place] [address]Dr. Shahbaz Rogel Neutrophils/100 WBC (Bld) 81.3 % Critically high 43.0-75.0 Comment on above: Performed By: #### C BC ####[facility] [address]flrfvt[address] [place] [address]Dr. Shahbaz Rogel Platelet mean volume (Bld) [Entitic vol] 9.8 fL Normal 9.5-13.5 Comment on above: Performed By: #### C BC ####[facility] [address] [place] [address]Dr. Shahbaz Rogel PLT 184 103/ul Normal 150-450 Comment on above: Performed By: #### C BC ####[facility] [address]ks[address] [place] [address]Dr. Shahbaz Rogel RBC 4.25 106/ul Normal 4.20-5.40 [facility] Comment on above: Performed By: #### C BC ####[facility] Jwpxuvczvh[address] [place] [address]Dr. Shahbaz Rogel WBC 3.8 103/ul Critically low 4.0-11.0 Comment on above: Performed By: #### C BC ####[facility] [address] [place] [address]Dr. Shahbaz Rogel PROF CHEM 8 (BAS METB)on Anion gap [Moles/Vol] 9.2 mmol/L Normal [facility] Comment on above: Performed By: #### B MP ####[facility] [address]sbjssuh[address] [place] [address]Dr. Shahbaz Rogel Calcium [Mass/Vol] 8.6 mg/dL Normal 8.5-10.1 [facility] Comment on above: Performed By: #### B MP ####[facility] [address] [place] [address]Dr. Shahbaz Rogel Chloride [Moles/Vol] 107 mmol/L Normal 98-107 [facility] Comment on above: Performed By: #### B MP ####[facility] [address] [place] [address]Dr. Shahbaz Rogel CO2 [Moles/Vol] 29.3 mmol/L Normal 21.0-32.0 Comment on above: Performed By: #### B MP ####[facility] [address] [place] [address]Dr. Shahbaz Rogel Creatinine [Mass/Vol] 0.79 mg/dL Normal 0.55-1.02 Comment on above: Performed By: #### B MP ####[facility] Bivnfazyql[address] [place], [place] [address]Dr. Shahbaz Rogel EGFR-AF ITALIAN >60 Normal >=60 Comment on above: Performed By: #### B MP ####[facility] Tufutijniu63[address] [place], [place] [address]Dr. Shahbaz Rogel EGFR-NON AF ITALIAN >60 Normal >=60 Comment on above: Performed By: #### B MP ####[facility] Cyfhldzbol128[address] [place], [place] [address]Dr. Shahbaz Rogel Glucose [Mass/Vol] 159 mg/dL Critically high 74-106 [facility] Comment on above: Performed By: #### B MP ####[facility] Oqcgucklep217[address] [place], [place] [address]Dr. Shahbaz Rogel Potassium [Moles/Vol] 3.5 mmol/L Normal 3.5-5.1 [facility] Comment on above: Performed By: #### B MP ####[facility] Hnhmclelsy1918[address] [place], [place] [address]Dr. Shahbaz Rogel Sodium [Moles/Vol] 142 mmol/L Normal 136-145 [facility] Comment on above: Performed By: #### B MP ####[facility] Jaxrmenkwn110[address] [place], [place] [address]Dr. Shahbaz Rogel Urea nitrogen [Mass/Vol] 21.0 mg/dL Critically high 7.0-18.0 Comment on above: Performed By: #### B MP ####[facility] Kuhyzynvot[address] [place], [place] [address]Dr. Shahbaz Rogel Urea nitrogen/Creatinine [Mass ratio] 26.6 mg/mg Normal [facility] Comment on above: Performed By: #### B MP ####[facility] [address]xs[address]pctm[address] [place] [address]Dr. Shahbaz Rogel XR CHEST 2 Von 01-06-2023 XR CHEST 2 V Normal [facility] CBC AUTO DIFFon 01-05-2023 BASO # 0.0 103/ul Normal 0.0-0.1 [facility] Comment on above: Performed By: #### C BC ####[facility] Lbckpzsqvo[address] [place], [place] [address]Dr. Shahbaz Rogel Basophils/100 WBC (Bld) 0.2 % Normal 0.2-2.0 [facility] Comment on above: Performed By: #### C BC ####[facility] Gsosoguowi434[address] [place], [place] [address]Dr. Shahbaz Rogel EO # 0.0 103/ul Normal 0.0-0.7 [facility] Comment on above: Performed By: #### C BC ####[facility] Oshzrptfyi5910[address] [place], [place] [address]Dr. Shahbaz Rogel Eosinophils/100 WBC (Bld) 0.0 % Critically low 0.9-7.0 [facility] Comment on above: Performed By: #### C BC ####[facility] Fnstpgwdsh8313[address] [place], [place] [address]Dr. Shahbaz Rogel Erythrocyte distribution width (RBC) [Ratio] 13.6 % Normal 11.0-15.0 [facility] Comment on above: Performed By: #### C BC ####[facility] Pqandpthzk334[address] [place], [place] [address]Dr. Shahbaz Rogel Hematocrit (Bld) [Volume fraction] 36.6 % Normal 36.0-48.0 [facility] Comment on above: Performed By: #### C BC ####[facility] Jelvmrcvzp070[address] [place], [place] [address]Dr. Shahbaz Rogel Hemoglobin (Bld) [Mass/Vol] 11.6 g/dL Critically low 12.0-16.0 [facility] Comment on above: Performed By: #### C BC ####[facility] [address]dimvvw[address] [place] [address]DrChen Shahbaz Rogel IG # 0.03 10e3/ul Normal 0.00-0.03 Comment on above: Performed By: #### C BC ####[facility] Qupwwcevfm[address] [place] [address]DrChen Rogel IG % 0.5 % Normal 0.0-0.5 Comment on above: Performed By: #### C BC ####[facility] Rxpenebfhw289[address] [place], [place] [address]DrChen Rogel LYMPH # 0.6 103/ul Critically low 1.2-3.8 [facility] Comment on above: Performed By: #### C BC ####[facility] Eklfefqmeu774[address] [place], [place] [address]DrChen Rogel Lymphocytes/100 WBC (Bld) 10.7 % Critically low 20.5-60.0 Comment on above: Performed By: #### C BC ####[facility] Jtzgimrjpu228[address] [place], [place] [address]DrChen Lilajarrod Rogel MANUAL DIFF REQ NO Normal Comment on above: Performed By: #### C BC ####[facility] Jvoigphlce606[address] [place], [place] [address]DrChen Rogel MCH (RBC) [Entitic mass] 27.7 pg Normal 26.7-34.0 [facility] Comment on above: Performed By: #### C BC ####[facility] Yzxwgflcsp695[address] [place], [place] [address]DrChen Rogel MCHC (RBC) [Mass/Vol] 31.7 g/dL Normal 29.9-35.2 [facility] Comment on above: Performed By: #### C BC ####[facility] Nmrskdvoae679[address] [place], [place] [address]DrChen Rogel MCV (RBC) [Entitic vol] 87.4 fL Normal 81.0-99.0 [facility] Comment on above: Performed By: #### C BC ####[facility] [address]ek[address] [place] [address]DrChen Sharpjarrod Juan F MONO # 0.1 103/ul Critically low 0.3-0.8 [facility] Comment on above: Performed By: #### C BC ####[facility] Xcdxsajorp[address] [place] [address]DrChen Rogel Monocytes/100 WBC (Bld) 2.5 % Normal 1.7-12.0 [facility] Comment on above: Performed By: #### C BC ####[facility] Knzqrrgsju73[address] [place], [place] [address]DrChen Sharpjarrod Juan F NEUT # 4.8 103/ul Normal 1.4-6.5 [facility] Comment on above: Performed By: #### C BC ####[facility] Keidxlyyov395[address] [place], [place] [address]DrChen Rogel Neutrophils/100 WBC (Bld) 86.1 % Critically high 43.0-75.0 [facility] Comment on above: Performed By: #### C BC ####[facility] Xgfekjfeak2685[address] [place], [place] [address]DrChen Rogel Platelet mean volume (Bld) [Entitic vol] 10.0 fL Normal 9.5-13.5 [facility] Comment on above: Performed By: #### C BC ####[facility] Vesotngifw4826[address] [place], [place] [address]Dr. Shahbaz Rogel PLT 193 103/ul Normal 150-450 [facility] Comment on above: Performed By: #### C BC ####[facility] Tyigjbibno057[address] [place], [place] [address]DrChen Rogel RBC 4.19 106/ul Critically low 4.20-5.40 [facility] Comment on above: Performed By: #### C BC ####[facility] Hwltmddtpq1701[address] [place], [place] [address]DrChen Rogel WBC 5.6 103/ul Normal 4.0-11.0 [facility] Comment on above: Performed By: #### C BC ####[facility] Jcqxtanvsv[address] [place] [address]Dr. Shahbaz Rogel PROF CHEM 8 (BAS METB)on Anion gap [Moles/Vol] 12.7 mmol/L Normal Th [facility] Comment on above: Performed By: #### B MP ####[facility] Pyptkxbpvh[address] [place] [address]Dr. Shahbaz Rogel Calcium [Mass/Vol] 8.8 mg/dL Normal 8.5-10.1 Comment on above: Performed By: #### B MP ####[facility] Obgjvmsuze[address] [place], [place] [address]Dr. Shahbaz Rogel Chloride [Moles/Vol] 107 mmol/L Normal 98-107 Comment on above: Performed By: #### B MP ####[facility] Pueozsviat035[address] [place], [place] [address]Dr. Shahbaz Rogel CO2 [Moles/Vol] 26.9 mmol/L Normal 21.0-32.0 Comment on above: Performed By: #### B MP ####[facility] Awvjsjcdor0064[address] [place], [place] [address]DrChen Rogel Creatinine [Mass/Vol] 0.81 mg/dL Normal 0.55-1.02 Comment on above: Performed By: #### B MP ####[facility] [address]nsdwsp[address] [place] [address]Dr. Shahbaz Rogel EGFR-AF ITALIAN >60 Normal >=60 [facility] Comment on above: Performed By: #### B MP ####[facility] Xnytcikkrz14[address] [place], [place] [address]Dr. Shahbaz Rogel EGFR-NON AF ITALIAN >60 Normal >=60 Comment on above: Performed By: #### B MP ####[facility] Kwakhsstzu255[address] [place], [place] [address]Dr. Shahbaz Rogel Glucose [Mass/Vol] 144 mg/dL Critically high 74-106 [facility] Comment on above: Performed By: #### B MP ####[facility] Xsxuesjlla[address] [place] [address]Dr. Lilajarrod Juan F Potassium [Moles/Vol] 3.6 mmol/L Normal 3.5-5.1 Comment on above: Performed By: #### B MP ####[facility] Brjdwzixiv[address] [place] [address]Dr. Shahbaz Rogel Sodium [Moles/Vol] 143 mmol/L Normal 136-145 Comment on above: Performed By: #### B MP ####[facility] [address]yydxtah[address] [place] [address]Dr. Lilajarrod Juan F Urea nitrogen [Mass/Vol] 20.0 mg/dL Critically high 7.0-18.0 Comment on above: Performed By: #### B MP ####[facility] Dwh[address]igkxxc[address] [place] [address]Dr. Shahbaz Rogel Urea nitrogen/Creatinine [Mass ratio] 24.7 mg/mg Normal Comment on above: Performed By: #### B MP ####[facility] [address]bra[address] [place] [address]Dr. Shahbaz Juan F CBC W MANUAL DIFFon 01-05-20 23 ATYPICAL LYMPH # Normal Comment on above: Performed By: #### C BCMAN ####[facility] Dyrmewogcr[address] [place] [address]Dr. Shahbaz Rogel ATYPICAL LYMPH % Normal [facility] Comment on above: Performed By: #### C BCMAN ####[facility] Rujeejurmb[address] [place] [address]Dr. Shahbaz Rogel BAND # 0.0 103/ul Normal 0.0-0.3 [facility] Comment on above: Performed By: #### C BCMAN ####[facility] Bnlntkheoi[address] [place] [address]Dr. Shahbaz Rogel BAND % 0 % Normal 0-5 [facility] Comment on above: Performed By: #### C BCMAN ####[facility] [address] [place] [address]Dr. Shahbaz Rogel BASOM # 0.00 103/ul Normal 0.00-0.10 [facility] Comment on above: Performed By: #### C BCBRICE ####[facility] Vyodbnibuf[address] [place] [address]Dr. Shahbaz Rogel BASOM % 0.0 % Critically low 0.2-2.0 [facility] Comment on above: Performed By: #### C BCBRICE ####[facility] Ssu[address] [place] [address]Dr. Shahbaz Rogel BLAST # Normal Comment on above: Performed By: #### C CAIN ####[facility] Ohxubtuxmt15[address] [place], [place] [address]Dr. Shahbaz Rogel BLAST % Normal [facility] Comment on above: Performed By: #### C CAIN ####[facility] Kzmihixfmk[address] [place], [place] [address]Dr. Shahbaz Rogel CORRECTED WBC Normal 4.0-11.0 [facility] Comment on above: Performed By: #### C CAIN ####[facility] Azpytulvfq95[address] [place], [place] [address]Dr. Shahbaz Rogel EOS # 0.00 103/ul Normal 0.00-0.70 [facility] Comment on above: Performed By: #### C CAIN ####[facility] Orcawykynh[address] [place], [place] [address]Dr. Shahbaz Rogel EOS% 0.0 % Critically low 0.9-7.0 [facility] Comment on above: Performed By: #### C CAIN ####[facility] Gqiyudzxye68[address] [place], [place] [address]Dr. Shahbaz Rogel HCT 36.5 % Normal 36.0-48.0 [facility] Comment on above: Performed By: #### C BCBRICE ####[facility] Qmiptxvunp008[address] [place], [place] [address]Dr. Shahbaz Rogel HGB 11.8 g/dl Critically low 12.0-16.0 [facility] Comment on above: Performed By: #### C CAIN ####[facility] [address]jcjc[address] [place] [address]Dr. Shahbaz Rogel LYMPHM # 0.42 103/ul Critically low 1.20-3.80 Comment on above: Performed By: #### C CAIN ####[facility] Vldrwuoksr26[address] [place] [address]Dr. Shahbaz Rogel LYMPHM% 12.0 % Critically low 20.5-60.0 Comment on above: Performed By: #### C CAIN ####[facility] Rdtszkewoi5069 [place] [address]Dr. Shahbaz Rogel MCH 28.0 pg Normal 26.7-34.0 Comment on above: Performed By: #### C CAIN ####[facility] [address]qaj[address]zd[address] [place] [address]Dr. Shahbaz Rogel MCHC 32.3 g/dl Normal 29.9-35.2 Comment on above: Performed By: #### C CAIN ####[facility] Jxmsfrcetp[address] [place] [address]Dr. Shahbaz Rogel MCV 86.7 fL Normal 81.0-99.0 [facility] Comment on above: Performed By: #### C CAIN ####[facility] Dakvqnnuia8396 [place] [address]Dr. Shahbaz Rogel METAMYELOCYTE # Normal [facility] Comment on above: Performed By: #### C CAIN ####[facility] Dxzzuekina[address] [place] [address]Dr. Shahbaz Rogel METAMYELOCYTE % Normal [facility] Comment on above: Performed By: #### C CAIN ####[facility] Nowsobdflj[address] [place], [place] [address]Dr. Shahbaz Rogel MONOM# 0.07 103/ul Critically low 0.30-0.80 Comment on above: Performed By: #### C CAIN ####[facility] Mvkkncyuir[address] [place], [place] [address]Dr. Shahbaz Rogel MONOM% 2.0 % Normal 1.7-12.0 Comment on above: Performed By: #### C CAIN ####[facility] [address]vhgivybty[address] [place] [address]Dr. Shahbaz Rogel MPV 9.9 fL Normal 9.5-13.5 Comment on above: Performed By: #### C CAIN ####[facility] Onhivpfivi80[address] [place] [address]Dr. Shahbaz Rogel MYELOCYTE # Normal Comment on above: Performed By: #### C CAIN ####[facility] Vonlokzmqa0176 [place] [address]Dr. Shahbaz Rogel MYELOCYTE % Normal [facility] Comment on above: Performed By: #### C CAIN ####[facility] Wdsawbvlrp[address] [place] [address]Dr. Shahbaz Rogel NRBC Normal [facility] Comment on above: Performed By: #### C CAIN ####[facility] Nezbbqchct[address] [place], [place] [address]Dr. Shahbaz Rogel PLT 178 103/ul Normal 150-450 [facility] Comment on above: Performed By: #### C CAIN ####[facility] Drvkgxtwgm[address] [place], [place] [id number]. Shahbaz Rogel RBC 4.21 106/ul Normal 4.20-5.40 [facility] Comment on above: Performed By: #### C CAIN ####[facility] Bwhooakzbo[address] [place] [address]Dr. Shahbaz Rogel RDW 13.2 % Normal 11.0-15.0 [facility] Comment on above: Performed By: #### C CAIN ####[facility] Zjasqlicla[address] [place] [address]Dr. Shahbaz Rogel SEG # 3.01 103/ul Normal 1.40-6.50 [facility] Comment on above: Performed By: #### C CAIN ####[facility] Vlnpqttgfn364[address] [place], [place] [address]Dr. Shahbaz Rogel SEG % 86.0 % Critically high 43.0-75.0 Comment on above: Performed By: #### C BCMAN ####[facility] Csxzjlmyjo[address] [place] [address]Dr. Shahbaz Rogel WBC 3.5 103/ul Critically low 4.0-11.0 Comment on above: Performed By: #### C BCMAN ####[facility] Ztdlcfjasu034[address] [place], [place] [address]Dr. Shahbaz Rogel PROF CHEM 8 (BAS METB)on Anion gap [Moles/Vol] 10.5 mmol/L Normal Th [facility] Comment on above: Performed By: #### B MP ####[facility] Oaerwlqwwz385[address] [place], [place] [address]Dr. Shahbaz Rogel Calcium [Mass/Vol] 8.7 mg/dL Normal 8.5-10.1 Comment on above: Performed By: #### B MP ####[facility] Todrkoybot047[address] [place], [place] [address]Dr. Shahbaz Rogel Chloride [Moles/Vol] 108 mmol/L Critically high 98-107 [facility] Comment on above: Performed By: #### B MP ####[facility] Uruwoyzgxn536[address] [place], [place] [address]Dr. Shahbaz Rogel CO2 [Moles/Vol] 25.2 mmol/L Normal 21.0-32.0 Comment on above: Performed By: #### B MP ####[facility] Caqzztlnxg040[address] [place], [place] [address]Dr. Shahbaz Rogel Creatinine [Mass/Vol] 0.77 mg/dL Normal 0.55-1.02 [facility] Comment on above: Performed By: #### B MP ####[facility] Tcfwhifpia97[address] [place], [place] [address]Dr. Shahbaz Rogel EGFR-AF ITALIAN >60 Normal >=60 Comment on above: Performed By: #### B MP ####[facility] Gwigamvxet17[address] [place], [place] [address]Dr. Shahbaz Rogel EGFR-NON AF ITALIAN >60 Normal >=60 Comment on above: Performed By: #### B MP ####[facility] Pkwegmbowx4064[address] [place], [place] [address]Dr. Lilajarrod Juan F Glucose [Mass/Vol] 169 mg/dL Critically high 74-106 [facility] Comment on above: Performed By: #### B MP ####[facility] Posxpcezvo346[address] [place], [place] [address]Dr. Lilajarrod Juan F Potassium [Moles/Vol] 3.7 mmol/L Normal 3.5-5.1 Comment on above: Performed By: #### B MP ####[facility] Vbigoaeote759[address] [place], [place] [address]Dr. Shahbaz Rogel Sodium [Moles/Vol] 140 mmol/L Normal 136-145 Comment on above: Performed By: #### B MP ####[facility] Efyslgjhcj924[address] [place], [place] [address]Dr. Lilajarrod Juan F Urea nitrogen [Mass/Vol] 14.0 mg/dL Normal 7.0-18.0 Comment on above: Performed By: #### B MP ####[facility] Tosuppglcl25[address] [place], [place] [address]Dr. Lilajarrod Juan F Urea nitrogen/Creatinine [Mass ratio] 18.2 mg/mg Normal Comment on above: Performed By: #### B MP ####[facility] Nksrezhtyi186[address] [place], [place] [address]Dr. Shahbaz Rogel RESPIRATORY PANEL PLUSon Adenovirus Not detected Normal NOT DETECTED [facility] Comment on above: Performed By: #### R SPLUS ####[facility] Lirizjpigq538[address] [place], [place] [address]Dr. Shahbaz Rogel B. Parapertusis Not detected Normal NOT DETECTED [facility] Comment on above: Performed By: #### R SPLUS ####[facility] Yruljpceoe1305[address] [place], [place] [address]Dr. Shahbaz Rogel B. Pertussis Not detected Normal NOT DETECTED [facility] Comment on above: Performed By: #### R SPLUS ####[facility] Unrkt[address]htc[address] [place] [address]Dr. Yijarrod Rogel Chlamydia Pneumoniae Not detected Normal NOT DETECTED [facility] Comment on above: Performed By: #### R SPLUS ####[facility] Lvbpqsotkk[address] [place] [address]Dr. Yijarrod Rogel Coronavirus 229E Not detected Normal NOT DETECTED [facility] Comment on above: Performed By: #### R SPLUS ####[facility] Qsrbholyin[address] [place], [place] [address]Dr. Yijarrod Rogel Coronavirus HKU1 Not detected Normal NOT DETECTED [facility] Comment on above: Performed By: #### R SPLUS ####[facility] Qsomnrckty033[address] [place], [place] [address]Dr. Shahbaz Rogel Coronavirus NL63 Not detected Normal NOT DETECTED [facility] Comment on above: Performed By: #### R SPLUS ####[facility] Tvgcutecsr6217[address] [place], [place] [address]Dr. Yijarrod Rogel Coronavirus OC43 Not detected Normal NOT DETECTED [facility] Comment on above: Performed By: #### R SPLUS ####[facility] Sfopwnfyod[address] [place], [place] [address]Dr. Yilan Rogel Influenza A H1 Not detected Normal NOT DETECTED [facility] Comment on above: Performed By: #### R SPLUS ####[facility] Punzhflajb157[address] [place], [place] [address]Dr. Yilan Rogel Influenza A H1 2009 Not detected Normal NOT DETECTED [facility] Comment on above: Performed By: #### R SPLUS ####[facility] Xpgjbxiwfu736[address] [place], [place] [address]Dr. Yilan Rogel Influenza A H3 Not detected Normal NOT DETECTED [facility] Comment on above: Performed By: #### R SPLUS ####[facility] Opbobynroo619[address] [place], [place] [address]Dr. Yilan Rogel Influenza B Not detected Normal NOT DETECTED [facility] Comment on above: Performed By: #### R SPLUS ####[facility] Wgdquwqywq[address] [place], [place] [address]Dr. Shahbaz Rogel Metapneumovirus Detected Abnormal NOT DETECTED [facility] Comment on above: Performed By: #### R SPLUS ####[facility] [address]tn[address]zy[address] [place] [address]Dr. Shahbaz Rogel Mycoplas. Pneumoniae Not detected Normal NOT DETECTED [facility] Comment on above: Performed By: #### R SPLUS ####[facility] Lawbirybps[address] [place] [address]Dr. Lilajarrod Rogel Parainfluenza 1 Not detected Normal NOT DETECTED [facility] Comment on above: Performed By: #### R SPLUS ####[facility] O[address]abkednp[address] [place] [address]Dr. Shahbaz Rogel Parainfluenza 2 Not detected Normal NOT DETECTED [facility] Comment on above: Performed By: #### R SPLUS ####[facility] [address]pcquepstc[address] [place] [address]Dr. Lilajarrod Rogel Parainfluenza 3 Not detected Normal NOT DETECTED [facility] Comment on above: Performed By: #### R SPLUS ####[facility] Qpdiiirmpr[address] [place] [address]Dr. Shahbaz Rogel Parainfluenza 4 Not detected Normal NOT DETECTED [facility] Comment on above: Performed By: #### R SPLUS ####[facility] Tuqukslcev[address] [place] [address]Dr. Shahbaz Rogel Rhino/Enterovirus Not detected Normal NOT DETECTED [facility] Comment on above: Performed By: #### R SPLUS ####[facility] Pbcyauwrvi[address]167 [place] [address]Dr. Shahbaz Rogel RP2 Header 1 RESPIRATORY PANEL: VIRUSES Normal [facility] Comment on above: Performed By: #### R SPLUS ####[facility] Gwxajghykh[address] [place] [address]Dr. Shahbaz Rogel RP2 Header 2 RESPIRATORY PANEL: BACTERIA Normal [facility] Comment on above: Performed By: #### R SPLUS ####[facility] Yziybnfvmc75[address] [place] [address]Dr. Shahbaz Rogel RSV Not detected Normal NOT DETECTED [facility] Comment on above: Performed By: #### R SPLUS ####[facility] Stekeaappu[address] [place] [address]Dr. Shahbaz Rogel SARS-CoV-2 (COVID-19) RNA PAVAN+probe Ql (Unsp spec) Not detected Normal NOT DETECTED [facility] Comment on above: Performed By: #### R SPLUS ####[facility] Ggladnycxb[address] [place] [address]Dr. Shahbaz Juan F CARDIAC ROSALINA 3-6on 3 CK [Catalytic activity/Vol] 148 U/L Normal 26-192 [facility] Comment on above: Performed By: #### C MREP ####[facility] Jfrbenwtgw[address]74 [place] [address]Dr. Shahbaz Juan F CK.MB [Mass/Vol] 0.84 ng/mL Normal <=3.60 [facility] Comment on above: Performed By: #### C MREP ####[facility] Pwsixwdotj68[address] [place], [place] [address]Dr. Shahbaz Rogel HSTROP 6.4 pg/mL Normal 4.0-51.3 [facility] Comment on above: Result Comment: CUT- OFF POINTS HAVE BEEN ESTABLISHED BASED ON THE FOURTH UNIVERSAL DEFINITIONS OF MYOCARDIALINFARCTION. THE UPPER REFERENCE LIMIT (URL) OF TROPONIN, DEFINED THE 99TH PERCENTILE OFcTnI DISTRIBUTION IN A REFERENCE POPULATION, HAS BEEN CONFIRMED THE DECISION THRESHOLDFOR [place] DIAGNOSIS. Performed By: #### C MREP ####[facility] [address]qokxhxxlg[address] [place] [address]Dr. Shahbaz Juan F CBC W MANUAL DIFFon 01-04-20 23 ATYPICAL LYMPH # Normal [facility] Comment on above: Performed By: #### C BCMAN ####[facility] Aisbmpqufa[address] [place] [address]Dr. Shahbaz Rogel ATYPICAL LYMPH % Normal [facility] Comment on above: Performed By: #### C BCMAN ####[facility] Cccwoqyydw20[address] [place] [address]Dr. Yilan Rogel BAND # 0.0 103/ul Normal 0.0-0.3 [facility] Comment on above: Performed By: #### C BCMAN ####[facility] Srsfwmhfhd[address]94 [place] [address]Dr. Shahbaz Rogel BAND % 0 % Normal 0-5 [facility] Comment on above: Performed By: #### C BCMAN ####[facility] Esbclkezgp[address] [place], [place] [address]Dr. Shahbaz Rogel BASOM # 0.00 103/ul Normal 0.00-0.10 [facility] Comment on above: Performed By: #### C BCBRICE ####[facility] Wjiphxetum[address] [place], [place] [address]Dr. Shahbaz Rogel BASOM % 0.0 % Critically low 0.2-2.0 [facility] Comment on above: Performed By: #### C BCBRICE ####[facility] Ilkgpccsyg[address] [place], [place] [address]Dr. Shahbaz Rogel BLAST # Normal [facility] Comment on above: Performed By: #### C CAIN ####[facility] Mshspkjnes[address] [place], [place] [address]Dr. Shahbaz Rogel BLAST % Normal [facility] Comment on above: Performed By: #### C BCBRICE ####[facility] Zxnvtyoihb[address] [place], [place] [address]Dr. Shahbaz Rogel CORRECTED WBC Normal 4.0-11.0 [facility] Comment on above: Performed By: #### C BCBRICE ####[facility] Uighvizauv[address] [place], [place] [address]Dr. Shahbaz Rogel EOS # 0.02 103/ul Normal 0.00-0.70 [facility] Comment on above: Performed By: #### C BCBRICE ####[facility] Wzrorachvg[address] [place], [place] [address]Dr. Shahbaz Rogel EOS% 1.0 % Normal 0.9-7.0 [facility] Comment on above: Performed By: #### C BCBRICE ####[facility] Bxywpokcdo8364[address] [place], [place] [address]Dr. Shahbaz Rogel HCT 37.5 % Normal 36.0-48.0 Comment on above: Performed By: #### C CAIN ####[facility] Hecszdkfql8342 [place] [address]Dr. Shahbaz Rogel HGB 12.0 g/dl Normal 12.0-16.0 Comment on above: Performed By: #### C CAIN ####[facility] Rfktpnqbdz9740 [place] [address]Dr. Shahbaz Rogel LYMPHM # 0.21 103/ul Critically low 1.20-3.80 Comment on above: Performed By: #### C CAIN ####[facility] Iazyqtgqdb[address] [place] [address]Dr. Shahbaz Rogel LYMPHM% 13.0 % Critically low 20.5-60.0 Comment on above: Performed By: #### C CAIN ####[facility] Clbquqihml[address]874 [place] [address]Dr. Shahbaz Rogel MCH 27.8 pg Normal 26.7-34.0 Comment on above: Performed By: #### Cheri BARLOW ####[facility] Lxuwhgjxer[address] [place], [place] [address]Dr. Shahbaz Rogel MCHC 32.0 g/dl Normal 29.9-35.2 Comment on above: Performed By: #### Cheri BARLOW ####[facility] Hoggdqaiov8[address] [place] [address]Dr. Shahbaz Rogel MCV 86.8 fL Normal 81.0-99.0 [facility] Comment on above: Performed By: #### C CAIN ####[facility] Tstyvorjob6284 [place] [address]Dr. Shahbaz Rogel METAMYELOCYTE # Normal [facility] Comment on above: Performed By: #### C CAIN ####[facility] Tnxegpqdtq2557 [place] [address]Dr. Shahbaz Rogel METAMYELOCYTE % Normal [facility] Comment on above: Performed By: #### C CAIN ####[facility] Ckrzjcdmgs1058 [place] [address]Dr. Shahbaz Rogel MONOM# 0.02 103/ul Critically low 0.30-0.80 [facility] Comment on above: Performed By: #### C CAIN ####[facility] Eagwachkbn8262 [place] [address]Dr. Shahbaz Rogel MONOM% 1.0 % Critically low 1.7-12.0 Comment on above: Performed By: #### C CAIN ####[facility] Rfobemtism7531 [place] [address]Dr. Shahbaz Rogel MPV 9.5 fL Normal 9.5-13.5 [facility] Comment on above: Performed By: #### C CAIN ####[facility] Zwpylohrmm6238 [place] [address]Dr. Shahbaz Rogel MYELOCYTE # Normal [facility] Comment on above: Performed By: #### Cheri BARLOW ####[facility] Uhmliwvnqt4520 [place] [address]Dr. Shahbaz Rogel MYELOCYTE % Normal [facility] Comment on above: Performed By: #### Cheri BARLOW ####[facility] Edikjinipr[address] [place], [place] [id number]. Shahbaz Rogel NRBC Normal [facility] Comment on above: Performed By: #### Cheri BARLOW ####[facility] Zxxmgchjwf5052 [place] [address]Dr. Shahbaz Rogel PLT 173 103/ul Normal 150-450 [facility] Comment on above: Performed By: #### C CAIN ####[facility] Ustdpqkzlz0689 [place] [address]Dr. Shahbaz Rogel RBC 4.32 106/ul Normal 4.20-5.40 [facility] Comment on above: Performed By: #### C CAIN ####[facility] Wvqxhvefpp5713 [place] [address]Dr. Shahbaz Rogel RDW 13.1 % Normal 11.0-15.0 [facility] Comment on above: Performed By: #### Cheri BARLOW ####[facility] Oxmvyeeegw9908 [place] [address]Dr. Shahbaz Rogel SEG # 1.36 103/ul Critically low 1.40-6.50 Comment on above: Performed By: #### C CAIN ####[facility] Qpyygtfmvv9592 [place] [address]Dr. Shahbaz Juan F SEG % 85.0 % Critically high 43.0-75.0 Comment on above: Performed By: #### C CAIN ####[facility] Eiepgtlvvw1484 [place] [address]Dr. Shahbaz Juan F WBC 1.6 103/ul Critically low 4.0-11.0 Comment on above: Performed By: #### C CAIN ####[facility] Gfqfqcbrjk268[address] [place], [place] [address]Dr. Shahbaz Rogel CT CHEST WO CONon 01-03-2023 CT CHEST WO CON Normal [facility] ER URINE PROFILEon 3 Bilirubin Ql (U) Negative Normal NEGATIVE [facility] Comment on above: Performed By: #### E RUR ####[facility] Sdefxjifae714[address] [place], [place] [address]Dr. Shahbaz Rogel Clarity (U) CLEAR Normal CLEAR Comment on above: Performed By: #### E RUR ####[facility] Zrblufbngw[address] [place], [place] [address]Dr. Shahbaz Rogel Color (U) LT. YELLOW Normal YELLOW [facility] Comment on above: Performed By: #### E RUR ####[facility] Jiemcgxqcx435[address] [place], [place] [address]Dr. Shahbaz Rogel ERUAHD A micrscopic examina tion will be performed if indicated. Normal [facility] Comment on above: Performed By: #### E RUR ####[facility] Vvzaiojamj1230[address] [place], [place] [address]Dr. Shahbaz Rogel Glucose Ql (U) Negative Normal NEGATIVE [facility] Comment on above: Performed By: #### E RUR ####[facility] Qzgmmwazxi6259 [place] [address]Dr. Shahbaz Rogel Hemoglobin Ql (U) Negative Normal NEGATIVE [facility] Comment on above: Performed By: #### E RUR ####[facility] Ixvvzrzriw239[address] [place], [place] [address]Dr. Shahbaz Rogel Ketones Ql (U) Negative Normal NEGATIVE [facility] Comment on above: Performed By: #### E RUR ####[facility] Wbpexqeevf709[address] [place], [place] [address]Dr. Shahbaz Rogel LEUKOCYTES Negative Normal NEGATIVE [facility] Comment on above: Performed By: #### E RUR ####[facility] Ydmmupvrog2313[address] [place], [place] [address]Dr. Shahbaz Rogel Nitrite Ql (U) Negative Normal NEGATIVE [facility] Comment on above: Performed By: #### E RUR ####[facility] Bnlgekwbrx201[address] [place], [place] [address]Dr. Shahbaz Rogel pH (U) 6.0 [pH] Normal 5-9 [facility] Comment on above: Performed By: #### E RUR ####[facility] Zjhjpzwufb1940[address] [place], [place] [address]Dr. Shahbaz Rogel SPEC GRAVITY <=1.005 Abnormal 1.005-<=1. 025 [facility] Comment on above: Performed By: #### E RUR ####[facility] Jyzztqmfmw[address] [place], [place] [address]Dr. Shahbaz Rogel UA PROTEIN Negative Normal NEGATIVE/ TRACE [facility] Comment on above: Performed By: #### E RUR ####[facility] Zpnxgwyqdo798[address] [place], [place] [address]Dr. Shahbaz Rogel UR MICRO IND NOT INDICATED Normal [facility] Comment on above: Performed By: #### E RUR ####[facility] Prhiknznws2436[address] [place], [place] [address]Dr. Shahbaz Rogel Urobilinogen Qn (U) 0.2 {Melida'U}/dL Normal 0.2 - 1. 0 [facility] Comment on above: Performed By: #### E RUR ####[facility] Fbetqjbkkc5434 [place] [address]Dr. Shahbaz Rogel LACTATE/LACTIC ACIDon 2022 Lactate [Moles/Vol] 1.5 mmol/L Normal 0.4-2.0 Comment on above: Performed By: #### L ACT ####[facility] Sevnsoeabo1038 [place] [address]Dr. Shahbaz Rogel PROF CHEM 8 (BAS METB)on Anion gap [Moles/Vol] 11.6 mmol/L Normal [facility] Comment on above: Performed By: #### B MP ####[facility] Tabvhajqnw6836[address] [place], [place] [address]Dr. Shahbaz Rogel Calcium [Mass/Vol] 8.1 mg/dL Critically low 8.5-10.1 [facility] Comment on above: Performed By: #### B MP ####[facility] Dohazfvaal[address] [place], [place] [address]Dr. Shahbaz Rogel Chloride [Moles/Vol] 109 mmol/L Critically high 98-107 Comment on above: Performed By: #### B MP ####[facility] Nxbtvuapux[address] [place], [place] [address]Dr. Shahbaz Rogel CO2 [Moles/Vol] 25.2 mmol/L Normal 21.0-32.0 Comment on above: Performed By: #### B MP ####[facility] Tfupnsufbw63[address] [place], [place] [address]Dr. Shahbaz Rogel Creatinine [Mass/Vol] 0.89 mg/dL Normal 0.55-1.02 Comment on above: Performed By: #### B MP ####[facility] Udansdpbxz360[address] [place], [place] [address]Dr. Shahbaz Rogel EGFR-AF ITALIAN >60 Normal >=60 Comment on above: Performed By: #### B MP ####[facility] Aaheymabbk119[address] [place], [place] [address]Dr. Shahbaz Rogel EGFR-NON AF ITALIAN >60 Normal >=60 Comment on above: Performed By: #### B MP ####[facility] Yadfyuxkue1478 [place] [address]Dr. Shahbaz Roegl Glucose [Mass/Vol] 167 mg/dL Critically high 74-106 [facility] Comment on above: Performed By: #### B MP ####[facility] Udnzqqtble5990 [place] [address]Dr. Shahbaz Rogel Potassium [Moles/Vol] 3.8 mmol/L Normal 3.5-5.1 Comment on above: Performed By: #### B MP ####[facility] Ezcffumndl6896 [place] [address]Dr. Shahbaz Rogel Sodium [Moles/Vol] 142 mmol/L Normal 136-145 Comment on above: Performed By: #### B MP ####[facility] Dntejlgzhx7703 [place] [address]Dr. Shahbaz Rogel Urea nitrogen [Mass/Vol] 9.0 mg/dL Normal 7.0-18.0 Comment on above: Performed By: #### B MP ####[facility] Ziajnygabt04[address] [place], [place] [address]Dr. Shahbaz Rogel Urea nitrogen/Creatinine [Mass ratio] 10.1 mg/mg Normal Comment on above: Performed By: #### B MP ####[facility] Fvqdygbtvu2609 [place] [address]Dr. Shahbaz Rogel CARDIAC ROSALINA ADMITon 023 CK [Catalytic activity/Vol] 173 U/L Normal 26-192 Comment on above: Performed By: #### C MADM, BMP ####[facility] Yihfnnqpbu2582 [place] [address]Dr. Shahbaz Rogel CK.MB [Mass/Vol] 0.55 ng/mL Normal <=3.60 Comment on above: Performed By: #### C MADM, BMP ####[facility] Ebhjnaambr4341 [place] [address]Dr. Shahbaz Rogel HSTROP 5.9 pg/mL Normal 4.0-51.3 [facility] Comment on above: Result Comment: CUT- OFF POINTS HAVE BEEN ESTABLISHED BASED ON THE FOURTH UNIVERSAL DEFINITIONS OF MYOCARDIALINFARCTION. THE UPPER REFERENCE LIMIT (URL) OF TROPONIN, DEFINED THE 99TH PERCENTILE OFcTnI DISTRIBUTION IN A REFERENCE POPULATION, HAS BEEN CONFIRMED THE DECISION THRESHOLDFOR TX DIAGNOSIS. Performed By: #### C EMILIO FALCON ####[facility] Qihctgvpko2605 [place] [address]Dr. Shahbaz Rogel LEN 76 ng/mL Normal 9-82 [facility] Comment on above: Performed By: #### C EZEKIEL BMP ####[facility] Oiprbnnhwt0595 [place] [address]Dr. Shahbaz Rogel CBC W MANUAL DIFFon 01-03-20 23 ATYPICAL LYMPH # Normal [facility] Comment on above: Performed By: #### Cheri BARLOW ####[facility] Ncvioscsbg232[address] [place], [place] [address]Dr. Shahbaz Rogel ATYPICAL LYMPH % Normal [facility] Comment on above: Performed By: #### Cheri BARLOW ####[facility] Msibrrcqzo8586 [place] [address]Dr. Yilan Rogel BAND # Normal 0.0-0.3 [facility] Comment on above: Performed By: #### Cheri BARLOW ####[facility] Rcprhjdcsp5883 [place] [address]Dr. Yilan Rogel BAND % Normal 0-5 [facility] Comment on above: Performed By: #### Cheri BARLOW ####[facility] Fzjvjcyrts49[address] [place] [address]Dr. Shahbaz Rogel BASOM # 0.00 103/ul Normal 0.00-0.10 [facility] Comment on above: Performed By: #### Cheri BARLOW ####[facility] Epmvjulitv[address] [place], [place] [address]Dr. Shahbaz Rogel BASOM % 0.0 % Critically low 0.2-2.0 [facility] Comment on above: Performed By: #### Cheri BARLOW ####[facility] Qrtlxjzhlz[address] [place], [place] [address]Dr. Yilan Rogel BLAST # Normal [facility] Comment on above: Performed By: #### C CAIN ####[facility] Nnarqpxfac4531 [place] [address]Dr. Shahbaz Rogel BLAST % Normal [facility] Comment on above: Performed By: #### C CAIN ####[facility] Ggkilefhrg2227 [place] [address]Dr. Shahbaz Rogel CORRECTED WBC Normal 4.0-11.0 [facility] Comment on above: Performed By: #### C CAIN ####[facility] Nmisfceeiw0276 [place] [address]Dr. Shahbaz Rogel EOS # 0.03 103/ul Normal 0.00-0.70 [facility] Comment on above: Performed By: #### C CAIN ####[facility] Xamrqkynlu6806 [place] [address]Dr. Shahbaz Rogel EOS% 1.0 % Normal 0.9-7.0 [facility] Comment on above: Performed By: #### C CAIN ####[facility] Tbtcxrkwzj3982 [place] [address]Dr. Shahbaz Rogel HCT 42.8 % Normal 36.0-48.0 [facility] Comment on above: Performed By: #### C CAIN ####[facility] [address]ckkith[address] [place], [place] [address]Dr. Shahbaz Rogel HGB 14.1 g/dl Normal 12.0-16.0 [facility] Comment on above: Performed By: #### C CAIN ####[facility] Dxjcumgirv1837 [place] [address]Dr. Shahbaz Rogel LYMPHM # 0.64 103/ul Critically low 1.20-3.80 [facility] Comment on above: Performed By: #### C CAIN ####[facility] Flpinfaxoj8819 [place] [address]Dr. Shahbaz Rogel LYMPHM% 23.0 % Normal 20.5-60.0 [facility] Comment on above: Performed By: #### C CAIN ####[facility] Gisbrrblea1712 [place], [place] [address]Gl. Shahbaz Rogel MCH 28.0 pg Normal 26.7-34.0 [facility] Comment on above: Performed By: #### C CAIN ####[facility] Gqiejifvyg3236 [place] [address]Dr. Shahbaz Rogel MCHC 32.9 g/dl Normal 29.9-35.2 [facility] Comment on above: Performed By: #### C CAIN ####[facility] Mheapamqib3849 [place] [address]Dr. Shahbaz Rogel MCV 84.9 fL Normal 81.0-99.0 [facility] Comment on above: Performed By: #### C CAIN ####[facility] Ukgsrzjcwv2736 [place] [address]Dr. Shahbaz Rogel METAMYELOCYTE # Normal [facility] Comment on above: Performed By: #### C CAIN ####[facility] Vzvamyccan8867 [place] [address]Dr. Shahbaz Rogel METAMYELOCYTE % Normal [facility] Comment on above: Performed By: #### C CAIN ####[facility] Xirwfbxxgm5955 [place] [address]Dr. Shahbaz Rogel MONOM# 0.31 103/ul Normal 0.30-0.80 [facility] Comment on above: Performed By: #### C CAIN ####[facility] K[address]qntprk[address] [place], [place] [address]Dr. Shahbaz Rogel MONOM% 11.0 % Normal 1.7-12.0 [facility] Comment on above: Performed By: #### C CAIN ####[facility] Pbtnsfepcc7532 [place] [address]Dr. Shahbaz Rogel MPV 9.5 fL Normal 9.5-13.5 [facility] Comment on above: Performed By: #### C CAIN ####[facility] Xpzygyergh1719 [place] [address]Dr. Shahbaz Rogel MYELOCYTE # Normal [facility] Comment on above: Performed By: #### C CAIN ####[facility] Rkubmcwfog2085 [place], [place] [address]Ln. Shahbaz Rogel MYELOCYTE % Normal [facility] Comment on above: Performed By: #### C CAIN ####[facility] Gtcscckirj0328 [place] [address]Dr. Shahbaz Rogel NRBC Normal [facility] Comment on above: Performed By: #### C CAIN ####[facility] Zcbykjqpvq4049 [place] [address]Dr. Shahbaz Rogel PLT 197 103/ul Normal 150-450 [facility] Comment on above: Performed By: #### C CAIN ####[facility] Sqygjtwdyx9184 [place] [address]Dr. Shahbaz Rogel RBC 5.04 106/ul Normal 4.20-5.40 [facility] Comment on above: Performed By: #### C CAIN ####[facility] Wgomhedpou0116 [place] [address]Dr. Shahbaz Rogel RDW 13.2 % Normal 11.0-15.0 Comment on above: Performed By: #### C CAIN ####[facility] Qbdeduzrce6312 [place] [address]Dr. Shahbaz Rogel SEG # 1.82 103/ul Normal 1.40-6.50 Comment on above: Performed By: #### C CAIN ####[facility] Yxcinyooye6124 [place] [address]Dr. Shahbaz Rogel SEG % 65.0 % Normal 43.0-75.0 Comment on above: Performed By: #### C CAIN ####[facility] Prkqhfzkfn8996 [place] [address]Dr. Shahbaz Rogel WBC 2.8 103/ul Critically low 4.0-11.0 Comment on above: Performed By: #### C CAIN ####[facility] Csajrjudxp5461 [place] [address]Dr. Shahbaz Rogel [facility]on SARS-CoV-2 (COVID-19) RNA PAVAN+probe Ql (Unsp spec) Not detected Normal NOT DETECTED [facility] Comment on above: Result Comment: When diagnostic [...] for this test is supported by the [place] of Health and Human Service's declaration that [...] be used). Performed By: #### C VDTBH ####[facility] Efkjdxhhph[address] [place], [place] [address]Dr. Shahbaz Rogel D-DIMERon 01-02-2023 D-DIMER 0.38 mg/L FEU Normal <=0.59 [facility] Comment on above: Performed By: #### D DIM ####[facility] Ejyiohrpbr[address] [place], [place] [address]Dr. Shahbaz Rogel D-DIMER COMMENTS SEE BELOW Normal [facility] Comment on above: Result Comment: Incr eases [...] generalized hospitalization. Performed By: #### D DIM ####[facility] Rseisjgtpe36[address] [place], [place] [address]DrChen Rogel LACTATE/LACTIC ACIDon 2022 Lactate [Moles/Vol] 2.1 mmol/L Critically high 0.4-2.0 [facility] Comment on above: Performed By: #### L ACT ####[facility] Bkgppnkifn197[address] [place], [place] [address]Dr. Shahbaz Rogel PROF CHEM 8 (BAS METB)on Anion gap [Moles/Vol] 14.3 mmol/L Normal [facility] Comment on above: Performed By: #### C EZEKIEL, BMP ####[facility] Atbbjmcfsq986[address] [place], [place] [address]Dr. Shahbaz Rogel Calcium [Mass/Vol] 9.0 mg/dL Normal 8.5-10.1 [facility] Comment on above: Performed By: #### C EZEKIEL, BMP ####[facility] Wackysytre01[address] [place], [place] [address]Dr. Shahbaz Rogel Chloride [Moles/Vol] 102 mmol/L Normal 98-107 [facility] Comment on above: Performed By: #### C EZEKIEL, BMP ####[facility] Imaaqdvpas88[address] [place], [place] [address]Dr. Shahbaz Rogel CO2 [Moles/Vol] 25.5 mmol/L Normal 21.0-32.0 [facility] Comment on above: Performed By: #### C EZEKIEL, BMP ####[facility] Mxxbswoyxx56[address] [place], [place] [address]Dr. Shahbaz Rogel Creatinine [Mass/Vol] 1.01 mg/dL Normal 0.55-1.02 [facility] Comment on above: Performed By: #### C EZEKIEL, BMP ####[facility] Uxcrjumztc[address] [place], [place] [address]Dr. Shahbaz Rogel EGFR-AF ITALIAN >60 Normal >=60 [facility] Comment on above: Performed By: #### C EZEKIEL, BMP ####[facility] Aavaqufrao849[address] [place], [place] [address]Dr. Shahbaz Rogel EGFR-NON AF ITALIAN 56 mL/min/1.73m2 Critically low >=60 [facility] Comment on above: Performed By: #### C EZEKIEL, BMP ####[facility] Lyhzwsmoet4311 [place] [address]Dr. Shahbaz Rogel Glucose [Mass/Vol] 105 mg/dL Normal 74-106 [facility] Comment on above: Performed By: #### C EZEKIEL, BMP ####[facility] Batndschno1729 [place] [address]Dr. Shahbaz Rogel Potassium [Moles/Vol] 3.8 mmol/L Normal 3.5-5.1 [facility] Comment on above: Performed By: #### Cheri FALCON, BMP ####[facility] Lbjalvzszu4172 [place] [address]Dr. Shahbaz Rogel Sodium [Moles/Vol] 138 mmol/L Normal 136-145 [facility] Comment on above: Performed By: #### Cheri FALCON, BMP ####[facility] Hyhenlvzlv269[address] [place], [place] [address]Dr. Shahbaz Rogel Urea nitrogen [Mass/Vol] 9.0 mg/dL Normal 7.0-18.0 [facility] Comment on above: Performed By: #### C EZEKIEL, BMP ####[facility] Iraunduxud1955[address] [place], [place] [address]Dr. Shahbaz Rogel Urea nitrogen/Creatinine [Mass ratio] 8.9 mg/mg Normal [facility] Comment on above: Performed By: #### Cheri FALCON, BMP ####[facility] Mhzgxfzcoa70[address] [place], [place] [address]Dr. Shahbaz Juan F XR CHEST 1 Von 01-02-2023 XR CHEST 1 V Normal [facility] INSULINon 11-02-2022 Insulin 6.0 uIU/mL Normal 2.6-24.9 [facility] Comment on above: Performed By: #### I NSULIN ####[facility] Dcqhqonecz90[address] [place], [place] [address]Dr. Shahbaz Juan F CBC AUTO DIFFon 11-01-2022 BASO # 0.0 103/ul Normal 0.0-0.1 [facility] Comment on above: Performed By: #### C BC ####[facility] Rzjpbpqdys69[address] [place], [place] [address]Dr. Shahbaz Rogel Basophils/100 WBC (Bld) 0.5 % Normal 0.2-2.0 [facility] Comment on above: Performed By: #### C BC ####[facility] Yqpxrljzsi36[address] [place], [place] [address]Dr. Shahbaz Rogel EO # 0.2 103/ul Normal 0.0-0.7 [facility] Comment on above: Performed By: #### C BC ####[facility] Cmfglswvbl13[address] [place], [place] [address]Dr. Shahbaz Rogel Eosinophils/100 WBC (Bld) 5.2 % Normal 0.9-7.0 [facility] Comment on above: Performed By: #### C BC ####[facility] Hybfqphewm125[address] [place], [place] [address]Dr. Shahbaz Rogel Erythrocyte distribution width (RBC) [Ratio] 12.7 % Normal 11.0-15.0 [facility] Comment on above: Performed By: #### C BC ####[facility] Gqnlifkdkg616[address] [place], [place] [address]Dr. Shahbaz Rogel Hematocrit (Bld) [Volume fraction] 46.4 % Normal 36.0-48.0 [facility] Comment on above: Performed By: #### C BC ####[facility] Iylmigdonr200[address] [place], [place] [address]Dr. Shahbaz Rogel Hemoglobin (Bld) [Mass/Vol] 14.9 g/dL Normal 12.0-16.0 [facility] Comment on above: Performed By: #### C BC ####[facility] Wtakedyrip13[address] [place], [place] [address]Dr. Shahbaz Rogel IG # 0.00 10e3/ul Normal 0.00-0.03 [facility] Comment on above: Performed By: #### C BC ####[facility] Clzyirbpxf[address] [place], [place] [address]Dr. Shahbaz Rogel IG % 0.0 % Normal 0.0-0.5 [facility] Comment on above: Performed By: #### C BC ####[facility] Sgpusytjvt5917 [place] [address]Dr. Shahbaz Juan F LYMPH # 1.1 103/ul Critically low 1.2-3.8 [facility] Comment on above: Performed By: #### C BC ####[facility] Swlvvryzxd4878 [place] [address]Dr. Lilajarrod Rogel Lymphocytes/100 WBC (Bld) 25.5 % Normal 20.5-60.0 [facility] Comment on above: Performed By: #### C BC ####[facility] Opctfrkajn[address] [place], [place] [address]Dr. Lilajarrod Rogel MANUAL DIFF REQ NO Normal [facility] Comment on above: Performed By: #### C BC ####[facility] Xadzjdmtat2309 [place] [address]Dr. Shahbaz Juan F MCH (RBC) [Entitic mass] 27.8 pg Normal 26.7-34.0 [facility] Comment on above: Performed By: #### C BC ####[facility] Ongbmmxlcb[address] [place], [place] [address]Dr. Shahbaz Juan F MCHC (RBC) [Mass/Vol] 32.1 g/dL Normal 29.9-35.2 [facility] Comment on above: Performed By: #### C BC ####[facility] Ebnmqncflk7[address] [place], [place] [address]Dr. Shahbaz Rogel MCV (RBC) [Entitic vol] 86.6 fL Normal 81.0-99.0 [facility] Comment on above: Performed By: #### C BC ####[facility] Zhonycti[address] [place] [address]Dr. Shahbaz Rogel MONO # 0.2 103/ul Critically low 0.3-0.8 [facility] Comment on above: Performed By: #### C BC ####[facility] [address]fe[address] [place], [place] [address]Dr. Lilajarrod Rogel Monocytes/100 WBC (Bld) 5.4 % Normal 1.7-12.0 [facility] Comment on above: Performed By: #### C BC ####[facility] En[address] [place], [place] [address]Dr. Shahbaz Rogel NEUT # 2.7 103/ul Normal 1.4-6.5 [facility] Comment on above: Performed By: #### C BC ####[facility] [address] [place] [id number]. Shahbaz Rogel Neutrophils/100 WBC (Bld) 63.4 % Normal 43.0-75.0 [facility] Comment on above: Performed By: #### C BC ####[facility] [address] [place] [address]Dr. Shahbaz Rogel Platelet mean volume (Bld) [Entitic vol] 9.4 fL Critically low 9.5-13.5 [facility] Comment on above: Performed By: #### C BC ####[facility] [address] [place] [address]Dr. Shahbaz Rogel PLT 216 103/ul Normal 150-450 [facility] Comment on above: Performed By: #### C BC ####[facility] [address] [place] [address]Dr. Shahbaz Rogel RBC 5.36 106/ul Normal 4.20-5.40 [facility] Comment on above: Performed By: #### C BC ####[facility] Oswgexengi[address] [place] [address]Dr. Shahbaz Rogel WBC 4.2 103/ul Normal 4.0-11.0 [facility] Comment on above: Performed By: #### C BC ####[facility] [address] [place] [id number]. Shahbaz Rogel FREE THYROXINE INDEX T7on FTI 2.92 Normal 1.30-4.50 [facility] Comment on above: Performed By: #### C MP, LIPID, T7, TSH ####[facility] [address] [place] [address]Dr. Shahbaz Rogel T3U 37.0 % Normal 30.0-39.0 [facility] Comment on above: Performed By: #### C MP, LIPID, T7, TSH ####[facility] [address]qojbm[address] [place] [address]Dr. Shahbaz Rogel T4 [Mass/Vol] 7.90 ug/dL Normal 4.80-13.90 [facility] Comment on above: Performed By: #### C MP, LIPID, T7, TSH ####[facility] [address] [place] [address]Dr. Shahbaz Rogel GLYCOHEMOGLOBIN A1Con 2022 ADA RECOMMENDATION SEE BELOW Normal [facility] Comment on above: Result Comment: ADA RECOMMENDED LIMIT 4.0 - 6.0 ADA THERAPEUTIC TARGET < 7.0 ACTION SUGGESTED > 7.0 Performed By: #### A 1C ####[facility] [address] [place], [place] [address]Dr. Shahbaz Rogel Glucose [Mass/Vol] 120 mg/dL Normal [facility] Comment on above: Performed By: #### A 1C ####[facility] [address] [place], [place] [address]Dr. Shahbaz Rogel HbA1c (Bld) [Mass fraction] 5.8 % Normal 4.5-6.2 [facility] Comment on above: Performed By: #### A 1C ####[facility] [address] [place], [place] [address]Dr. Shahbaz Rogel IRONon 11-01-2022 Iron [Mass/Vol] 54.0 ug/dL Normal 50.0-170.0 [facility] Comment on above: Performed By: #### I GRIS ####[facility] L[address]zu[address] [place], [place] [address]Dr. Shahbaz Rogel LIPID PROFILEon 11-01-2022 CHOL-HDL RATIO NORM SEE BELOW Normal [facility] Comment on above: Result Comment: 3.3 - 4.4 LOW RISK 4.4 - 7.1 AVERAGE RISK 7.1 - 11.0 MODERATE RISK >11.0 HIGH RISK Performed By: #### C MP, LIPID, T7, TSH ####[facility] [address] [place], [place] [address]Dr. Shahbaz Rogel Cholesterol [Mass/Vol] 203 mg/dL Critically high <=200 [facility] Comment on above: Performed By: #### C MP, LIPID, T7, TSH ####[facility] [address] [place] [id number]. Shahbaz Rogel Cholesterol in HDL [Mass/Vol] 42 mg/dL Normal 40-60 [facility] Comment on above: Performed By: #### C MP, LIPID, T7, TSH ####[facility] [address]yt[address] [place] [id number]. Shahbaz Rogel Cholesterol in LDL [Mass/Vol] 121.4 mg/dL Normal [facility] Comment on above: Performed By: #### C MP, LIPID, T7, TSH ####[facility] Exhly[address]wgv[address] [place] [address]Dr. Shahbaz Rogel Cholesterol.total/Chol esterol in HDL [Mass ratio] 4.8 {ratio} Normal [facility] Comment on above: Performed By: #### C MP, LIPID, T7, TSH ####[facility] [address]pq[address] [place] [id number]. Shahbaz Rogel HDL NORMAL > or = 60 mg/dl - LO W CARDIOVASCULAR RISK <40 mg/dl - HIGH CARDIOVASCULAR RISK Normal [facility] Comment on above: Performed By: #### C MP, LIPID, T7, TSH ####[facility] [address]pqztzw[address]qv[address] [place] [id number]. Shahbaz Rogel LDL CALC NORMAL SEE BELOW Normal Comment on above: Result Comment: <100 mg/dl OPTIMAL 100 - 129 mg/dl NEAR OR ABOVE OPTIMAL 130 - 159 mg/dl BORDERLINE HIGH 160 - 189 mg/dl HIGH >190 mg/dl VERY HIGH Performed By: #### C MP, LIPID, T7, TSH ####[facility] [address]wh[address]sv[address] [place] [id number]. Shahbaz Rogel Triglyceride [Mass/Vol] 198 mg/dL Critically high <=150 [facility] Comment on above: Performed By: #### C MP, LIPID, T7, TSH ####[facility] [address]ew[address] [place] [id number]. Shahbaz Rogel VLDL CALC 39.6 mg/dL Normal Comment on above: Performed By: #### C MP, LIPID, T7, TSH ####[facility] [address]uz[address] [place] [address]Dr. Shahbaz Rogel PROF 14(COMP METB)on 023 Albumin [Mass/Vol] 4.1 g/dL Normal 3.4-5.0 Comment on above: Performed By: #### C MP, LIPID, T7, TSH ####[facility] [address] [place] [address]Dr. Shahbaz Rogel Albumin/Globulin [Mass ratio] 1.0 {ratio} Normal Comment on above: Performed By: #### C MP, LIPID, T7, TSH ####[facility] [address]flp[address] [place] [address]Dr. Shahbaz Rogel ALP [Catalytic activity/Vol] 126 U/L Critically high 46-116 Comment on above: Performed By: #### C MP, LIPID, T7, TSH ####[facility] Qpfqvrpiux[address] [place] [address]Dr. Shahbaz Rogel ALT [Catalytic activity/Vol] 30 U/L Normal 14-59 [facility] Comment on above: Performed By: #### C MP, LIPID, T7, TSH ####[facility] Txl[address]kd[address] [place] [address]Dr. Shahbaz Rogel Anion gap [Moles/Vol] 12.3 mmol/L Normal [facility] Comment on above: Performed By: #### C MP, LIPID, T7, TSH ####[facility] Nfcsysgzih[address] [place] [address]Dr. Shahbaz Rogel AST [Catalytic activity/Vol] 25 U/L Normal 15-37 Comment on above: Performed By: #### C MP, LIPID, T7, TSH ####[facility] [address] [place] [address]Dr. Shahbaz Rogel Bilirubin [Mass/Vol] 0.5 mg/dL Normal 0.2-1.0 Comment on above: Performed By: #### C MP, LIPID, T7, TSH ####[facility] Pkpzsxknxu[address] [place] [address]Dr. Shahbaz Rogel Calcium [Mass/Vol] 9.4 mg/dL Normal 8.5-10.1 [facility] Comment on above: Performed By: #### C MP, LIPID, T7, TSH ####[facility] [address] [place] [address]Dr. Shahbaz Rogel Chloride [Moles/Vol] 104 mmol/L Normal 98-107 [facility] Comment on above: Performed By: #### C MP, LIPID, T7, TSH ####[facility] [address]br[address] [place] [address]Dr. Shahbaz Rogel CO2 [Moles/Vol] 29.6 mmol/L Normal 21.0-32.0 [facility] Comment on above: Performed By: #### C MP, LIPID, T7, TSH ####[facility] [address]fc[address] [place] [address]Dr. Shahbaz Rogel Creatinine [Mass/Vol] 0.91 mg/dL Normal 0.55-1.02 [facility] Comment on above: Performed By: #### C MP, LIPID, T7, TSH ####[facility] [address] [place] [address]Dr. Shahbaz Rogel EGFR-AF ITALIAN >60 Normal >=60 [facility] Comment on above: Performed By: #### C MP, LIPID, T7, TSH ####[facility] [address] [place] [address]Dr. Shahbaz Rogel EGFR-NON AF ITALIAN >60 Normal >=60 [facility] Comment on above: Performed By: #### C MP, LIPID, T7, TSH ####[facility] [address] [place] [address]Dr. Shahbaz Rogel Globulin (S) [Mass/Vol] 4.0 g/dL Normal [facility] Comment on above: Performed By: #### C MP, LIPID, T7, TSH ####[facility] Xyvb[address]fu[address] [place] [address]Dr. Shahbaz Rogel Glucose [Mass/Vol] 85 mg/dL Normal 74-106 [facility] Comment on above: Performed By: #### C MP, LIPID, T7, TSH ####[facility] [address] [place] [address]Dr. Shahbaz Rogel Potassium [Moles/Vol] 3.9 mmol/L Normal 3.5-5.1 [facility] Comment on above: Performed By: #### C MP, LIPID, T7, TSH ####[facility] [address]mp[address] [place] [address]Dr. Shahbaz Rogel Protein [Mass/Vol] 8.1 g/dL Normal 6.4-8.2 [facility] Comment on above: Performed By: #### C MP, LIPID, T7, TSH ####[facility] [address] [place] [address]Dr. Shahbaz Rogel Sodium [Moles/Vol] 142 mmol/L Normal 136-145 [facility] Comment on above: Performed By: #### C MP, LIPID, T7, TSH ####[facility] Icr[address]ks[address] [place] [address]Dr. Shahbaz Rogel Urea nitrogen [Mass/Vol] 9.0 mg/dL Normal 7.0-18.0 [facility] Comment on above: Performed By: #### C MP, LIPID, T7, TSH ####[facility] [address] [place] [address]Dr. Shahbaz Rogel Urea nitrogen/Creatinine [Mass ratio] 9.9 mg/mg Normal [facility] Comment on above: Performed By: #### C MP, LIPID, T7, TSH ####[facility] [address]rxkw[address] [place] [address]Dr. Shahbaz Rogel TSHon 11-01-2022 TSH 0.045 uIU/mL Critically low 0.358-3.74 0 [facility] Comment on above: Performed By: #### C MP, LIPID, T7, TSH ####[facility] [address]zigec[address] [place] [address]Dr. Shahbaz Rogel XR HUMERUS LT MIN 2Von 10-01 XR HUMERUS LT MIN 2V Normal [facility] XR LSPINE 2_3 VIEWSon 2021 XR LSPINE 2_3 VIEWS Normal [facility] XR CHEST 1 Von 08-25-2022 XR CHEST 1 V Normal [facility] ACID FAST SMEAR AND CXon Acid Fast Culture Negative Normal [facility] Comment on above: Result Comment: No a ninfa fast bacilli isolated after 6 weeks. Performed By: #### A FB ####[facility] [address] [place], [place] [address]Tl. Shahbza Rogel Acid Fast Smear Negative Normal [facility] Comment on above: Performed By: #### A FB ####[facility] [address] [place], [place] [address]Us. Shahbaz Rogel [employer] Specimen Processing Concentration Normal [facility] Comment on above: Performed By: #### A FB ####[facility] [address] [place] [address]Dr. Shahbaz Rogel Bacteria identified Anaer cx Nom (Unsp spec)Ordered By: Rodolfo Harley on 08-13-2022 Anaerobic microbial culture No Anaerobes Isolated 3 Days [facility] Basophils Auto (Bld) [#/Vol] Ordered By: Rodolfo Harley on 08-12-2022 Basophils (Bld) [#/Vol] 0.0 10*3/uL 0.0-0.2 [facility] Basophils/100 WBC Auto (Bld) Ordered By: Rodolfo Harley on 08-12-2022 Basophils/100 WBC (Bld) 0.4 % . [facility] Creatinine and Glomerular fi ltration rate.predicted panel (S/P/Bld)Ordered By: Rodolfo Harley on 08-12-2022 Creatinine [Mass/Vol] 0.74 mg/dL 0.44-1.03 [facility] Eosinophils Auto (Bld) [#/Vo l]Ordered By: Rodolfo Harley on 08-12-2022 Eosinophils (Bld) [#/Vol] 0.0 10*3/uL 0.0-0.45 [facility] Eosinophils/100 WBC Auto (Bl d)Ordered By: Rodolfo Harley on 08-12-2022 Eosinophils/100 WBC (Bld) 0.0 % . [facility] Erythrocyte distribution wid th Auto (RBC) [Ratio]Ordered By: Rodolfo Harley on 08-12-2022 Erythrocyte distribution width (RBC) [Ratio] 14.2 % 11.9-15.3 [facility] Estimated glomerular filtrat ion rate (GFR) non- AmericanOrdered By: Rodolfo Harley on 08-12-2022 GFR/1.73 sq M.predicted among non-blacks MDRD (S/P/Bld) [Vol rate/Area] > 60 mL/Min [facility] Hematocrit Auto (Bld) [Volum e fraction]Ordered By: Rodolfo Harley on 08-12-2022 Hematocrit (Bld) [Volume fraction] 38.0 % 34.0-46.4 [facility] Hemoglobin [Mass/volume] in BloodOrdered By: Rodolfo Harley 08-12-2022 Hemoglobin (Bld) [Mass/Vol] 12.5 g/dL 11.8-15.4 [facility] Laboratory - Hematology and Cell countsOrdered By: Rodolfo Harley on 08-12-2022 Nucleated RBC/100 WBC (Bld) [Ratio] 0.1 % 0-0.5 [facility] Leukocytes [#/volume] in Blo od by Automated countOrdered By: Rodolfo Harley on 08-12-2022 WBC (Bld) [#/Vol] 5.8 10*3/uL 4.5-11.0 [facility] Lymphocytes Auto (Bld) [#/Vo l]Ordered By: Rodolfo Harley on 08-12-2022 Lymphocytes (Bld) [#/Vol] 0.7 10*3/uL 1.00-4.8 [facility] Lymphocytes/100 WBC Auto (Bl d)Ordered By: Rodolfo Harley on 08-12-2022 Lymphocytes/100 WBC (Bld) 11.4 % . [facility] MCH Auto (RBC) [Entitic mass ]Ordered By: Rodolfo Harley on 08-12-2022 MCH (RBC) [Entitic mass] 28.1 pg 24.7-34.3 [facility] MCHC Auto (RBC) [Mass/Vol]Or dered By: Rodolfo Harley on 08-12-2022 MCHC (RBC) [Mass/Vol] 32.9 g/dL 32.0-35.0 [facility] MCV Auto (RBC) [Entitic vol] Ordered By: Rodolfo Harley on 08-12-2022 MCV (RBC) [Entitic vol] 85.4 fL 80-100 [facility] Monocytes Auto (Bld) [#/Vol] Ordered By: Rodolfo Harley on 08-12-2022 Monocytes (Bld) [#/Vol] 0.3 10*3/uL 0.0-0.8 [facility] Monocytes/100 WBC Auto (Bld) Ordered By: Rodolfo Harley on 08-12-2022 Monocytes/100 WBC (Bld) 4.8 % . [facility] Neutrophils Auto (Bld) [#/Vo l]Ordered By: Roodlfo Harley on 08-12-2022 Neutrophils (Bld) [#/Vol] 4.8 10*3/uL 1.8-7.7 [facility] Neutrophils/100 WBC Auto (Bl d)Ordered By: Rodolfo Harley on 08-12-2022 Neutrophils/100 WBC (Bld) 83.4 % . [facility] No Panel InformationOrdered By: Rodolfo Harley on 08-12-2022 Estimated GFR () > 60 mL/Min [facility] Comment on above: GFR estimated refere nce range: According to KDOQI guidelines, <60 ml/min/1.73m2 is sufficient to diagnose a patient with chronic kidney disease. Pharmacy Creatinine Clearance (Chem 59.45 [facility] Platelet mean volume Auto (B ld) [Entitic vol]Ordered By: Rodolfo Harley on 08-12-2022 Platelet mean volume (Bld) [Entitic vol] 7.9 fL 6.3-10.7 [facility] Platelets Auto (Bld) [#/Vol] Ordered By: Rodolfo Harley on 08-12-2022 Platelets (Bld) [#/Vol] 196 10*3/uL 150-450 [facility] RBC Auto (Bld) [#/Vol]Ordere d By: Rodolfo Harley on 08-12-2022 RBC (Bld) [#/Vol] 4.45 10*6/uL 3.60-5.[address] [facility] Serum or plasma anion gap de terminationOrdered By: Rodolfo Harley on 08-12-2022 Anion gap [Moles/Vol] 7.5 mmol/L 6.0-15.0 [facility] Serum or plasma calcium dagoberto urement (mass/volume)Ordered By: Rodolfo Harley on 08-12-2022 Calcium [Mass/Vol] 8.7 mg/dL 8.2-10.2 [facility] Serum or plasma chloride anahy surement (moles/volume)Ordered By: Rodolfo Harley on 08-12-2022 Chloride [Moles/Vol] 108 mmol/L 95-114 [facility] Serum or plasma glucose dagoberto urement (mass/volume)Ordered By: Rodolfo Harley on 08-12-2022 Glucose [Mass/Vol] 133 mg/dL 70-100 [facility] Comment on above: ADA recommended refe rence rangeRandom Glucose Reference Range is dependent on time and content of last meal. Glucose of more than 200 mg/dL in a nonstressed, ambulatory subject supports the diagnosis of Diabetes Mellitus. Serum or plasma potassium me asurement (moles/volume)Ordered By: Rodolfo Harley on 08-12-2022 Potassium [Moles/Vol] 3.7 mmol/L 3.5-5.1 [facility] Serum or plasma sodium measu rement (moles/volume)Ordered By: Rodolfo Harley on 08-12-2022 Sodium [Moles/Vol] 139 mmol/L 136-146 [facility] Serum or plasma total carbon dioxide measurement (moles/volume)Ordered By: Rodolfo Harley on 08-12-2022 CO2 [Moles/Vol] 27.2 mmol/L 22.0-30.0 [facility] Serum or plasma urea nitroge n measurement (mass/volume)Ordered By: Rodolfo Harley on 08-12-2022 Urea nitrogen [Mass/Vol] 14 mg/dL 9-23 [facility] ABO and Rh group post transf usion reaction Nom (Bld)Ordered By: Rodolfo Harley on 08-10-2022 Microscopic observation Gram stain Nom (Unsp spec) [facility] AF[employer] cultureOrdered By: Sissy Harley on 08-10-2022 Mycobacterium sp identified Org specific cx Nom (Unsp spec) [facility] AF[employer] smearOrdered By: Rodolfo Harley on 08-10-2022 Microscopic observation Smear Nom (Unsp spec) [facility] Aerobic cultureOrdered By: Margie Harley on 08-10-2022 Bacteria identified Aer cx Nom (Unsp spec) No Growth 2 Days [facility] Anaerobic cultureOrdered By: Rodolfo Harley on 08-10-2022 Bacteria identified Anaer cx Nom (Unsp spec) No Anaerobes Isolated 3 Days [facility] Arterial blood standard base excess determination by calculationOrdered By: Rodolfo Harley on 08-10-2022 Base excess standard Calc (BldA) [Moles/Vol] 5 mmol/L -2-3 [facility] Blood carbon dioxide, total measurement by calculation (moles/volume)Ordered By: Rodolfo Harley on 08-10-2022 CO2 Calc (Bld) [Moles/Vol] 30 mmol/L 23-29 [facility] [address] biopsyOrdered By: Rodolfo Harley on 08-10-2022 Hematocrit (Bld) [Volume fraction] 40.0 % 38.0-51.0 [facility] Fungal cultureOrdered By: Rolanda Harley on 08-10-2022 Fungus identified Cx Nom (Unsp spec) [facility] Glucose Glucometer (BldC) [M ass/Vol]Ordered By: Rodolfo Harley on 08-10-2022 Glucose [Mass/Vol] 126 mg/dL 70-105 [facility] Gram stain for investigation of transfusion reactionOrdered By: Rodolfo Harley on 08-10-2022 Microscopic observation Gram stain Nom (Unsp spec) [facility] Hemoglobin Calc (Bld) [Mass/ Vol]Ordered By: Rodolfo Harley on 08-10-2022 Hemoglobin (Bld) [Mass/Vol] 13.6 g/dL 12.0-17.0 [facility] Monocyte %Ordered By: Jean Harley on 08-10-2022 Monocyte % 39.9 mm[Hg] 35-51 [facility] Monocyte % 45 mm[Hg] 80-105 [facility] No Panel InformationOrdered By: Rodolfo Harley on 08-10-2022 Chlamydia psittaci Antibodies <1:10 Neg:<1:10 [facility] Comment on above: This test was develo ped and its performance characteristicsdetermined by [facility]. It has not been cleared or approvedby the Food and Drug Administration. The FDA hasdetermined that such clearance or approval is notnecessary.Performed at: [address] [id number] Director: Shelly Vargas MD, Phone: [phone] Potassium (Bld) [Moles/Vol]O rdered By: Rodolfo Harley on 08-10-2022 Potassium [Moles/Vol] 3.8 mmol/L 3.5-4.9 [facility] Sodium (Bld) [Moles/Vol]Orde red By: Rodolfo Harley on 08-10-2022 Sodium [Moles/Vol] 141 mmol/L 138-146 [facility] Whole blood bicarbonate dagoberto urementOrdered By: Rodolfo Harley on 08-10-2022 HCO3 (Bld) [Moles/Vol] 29.1 mmol/L 22.0-28.0 [facility] Whole blood ionized calcium measurement (moles/volume)Ordered By: Rodolfo Harley on 08-10-2022 Calcium.ionized (Bld) [Moles/Vol] 1280 mmol/L 1.12-1.32 [facility] Whole blood oxygen saturatio n measurementOrdered By: Rodolfo Harley on 08-10-2022 Oxygen saturation in Blood 84 % 95-98 [facility] Comment on above: Reference ranges ref lect baseline specimens only Whole blood pHOrdered By: Rolanda Harley on 08-10-2022 pH (Bld) 7.470 Units 7.31-7.45 [facility] Urine culture routineOrdered By: Rodolfo Harley on 08-07-2022 Bacteria identified Cx Nom (U) 2 Days [facility] Activated partial thrombopla stin time (aPTT) in platelet poor plasma by coagulation aOrdered By: Rodolfo Harley on 08-05-2022 aPTT Coag (PPP) [Time] 35.9 s 25.1-36.5 [facility] Basophils Auto (Bld) [#/Vol] Ordered By: Rodolfo Harley on 08-05-2022 Basophils (Bld) [#/Vol] 0.0 10*3/uL 0.0-0.2 [facility] Basophils/100 WBC Auto (Bld) Ordered By: Rodolof Harley on 08-05-2022 Basophils/100 WBC (Bld) 0.5 % . [facility] Body fluid albumin measureme nt (mass/volume)Ordered By: Rodolfo Harley on 08-05-2022 Albumin (Body fld) [Mass/Vol] 3.8 g/dL 3.2-5.5 [facility] COVID-19 Positive/NegativeOr dered By: Rodolfo Harley on 08-05-2022 SARS-CoV-2 (COVID-19) N gene PAVAN+probe Ql (Resp) Negative Negative [facility] Comment on above: Testing for SARS-CoV -2 by RT-PCRThis test was developed and its performance characteristics determined by [employer] and validated at the [facility]. This test has not been [...] on 08-05-2022 Creatinine [Mass/Vol] 0.97 mg/dL 0.44-1.03 [facility] Eosinophils Auto (Bld) [#/Vo l]Ordered By: Rodolfo Harley on 08-05-2022 Eosinophils (Bld) [#/Vol] 0.2 10*3/uL 0.0-0.45 [facility] Eosinophils/100 WBC Auto (Bl d)Ordered By: Rodolfo Harley on 08-05-2022 Eosinophils/100 WBC (Bld) 4.9 % . [facility] Erythrocyte distribution wid th Auto (RBC) [Ratio]Ordered By: Rodolfo Harley on 08-05-2022 Erythrocyte distribution width (RBC) [Ratio] 14.5 % 11.9-15.3 [facility] Estimated glomerular filtrat ion rate (GFR) non- AmericanOrdered By: Rodolfo Harley on 08-05-2022 GFR/1.73 sq M.predicted among non-blacks MDRD (S/P/Bld) [Vol rate/Area] 59 mL/Min [facility] FUNGAL CULTUREon 08-05-2022 Fungus (Mycology) Culture Final report Abnormal [facility] Comment on above: Performed By: #### C XFUN ####[facility] [address] [place] [address]Dr. Shahbaz Rogel Fungus Stain Final report Normal [facility] Comment on above: Performed By: #### C XFUN ####[facility] [address] [place] [address]Dr. Shahbaz Rogel Result 1 Comment Abnormal [facility] Comment on above: Result Comment: MILADYS/ Calcofluor preparation: no fungus observed. Performed By: #### C XFUN ####[facility] [address] [place] [address]Dr. Shahbaz Rogel Result Comment: Aspe rgillus versicolor Result 2 Penicillium species Abnormal [facility] Comment on above: Performed By: #### C XFUN ####[facility] [address] [place] [address]DrChen Rogel Globulin Calc (S) [Mass/Vol] Ordered By: Rodolfo Harley on 08-05-2022 Globulin (S) [Mass/Vol] 2.9 g/dL [facility] Hematocrit Auto (Bld) [Volum e fraction]Ordered By: Rodolfo Harley on 08-05-2022 Hematocrit (Bld) [Volume fraction] 43.3 % 34.0-46.4 [facility] Hemoglobin [Mass/volume] in BloodOrdered By: Rodolfo Harley on 08-05-2022 Hemoglobin (Bld) [Mass/Vol] 14.3 g/dL 11.8-15.4 [facility] Laboratory - CoagulationOrde red By: Rodolfo Harley on 08-05-2022 PT Coag (PPP) [Time] 12.4 s 9.0-12.9 [facility] Laboratory - Hematology and Cell countsOrdered By: Rodolfo Harley on 08-05-2022 Nucleated RBC/100 WBC (Bld) [Ratio] 0.0 % 0-0.5 [facility] Leukocytes [#/volume] in Blo od by Automated countOrdered By: Rodolfo Harley on 08-05-2022 WBC (Bld) [#/Vol] 3.4 10*3/uL 4.5-11.0 [facility] Lymphocytes Auto (Bld) [#/Vo l]Ordered By: Rodolfo Harley on 08-05-2022 Lymphocytes (Bld) [#/Vol] 0.9 10*3/uL 1.00-4.8 [facility] Lymphocytes/100 WBC Auto (Bl d)Ordered By: Rodolfo Harley on 08-05-2022 Lymphocytes/100 WBC (Bld) 27.2 % . [facility] MCH Auto (RBC) [Entitic mass ]Ordered By: Rodolfo Harley on 08-05-2022 MCH (RBC) [Entitic mass] 28.4 pg 24.7-34.3 [facility] MCHC Auto (RBC) [Mass/Vol]Or dered By: Rodolfo Harley on 08-05-2022 MCHC (RBC) [Mass/Vol] 33.1 g/dL 32.0-35.0 [facility] MCV Auto (RBC) [Entitic vol] Ordered By: Rodolfo Harley on 08-05-2022 MCV (RBC) [Entitic vol] 85.9 fL 80-100 [facility] Monocytes Auto (Bld) [#/Vol] Ordered By: Rodolfo Harley on 08-05-2022 Monocytes (Bld) [#/Vol] 0.3 10*3/uL 0.0-0.8 [facility] Monocytes/100 WBC Auto (Bld) Ordered By: Rodolfo Harley on 08-05-2022 Monocytes/100 WBC (Bld) 7.5 % . [facility] Neutrophils Auto (Bld) [#/Vo l]Ordered By: Rodolfo Harley on 08-05-2022 Neutrophils (Bld) [#/Vol] 2.0 10*3/uL 1.8-7.7 [facility] Neutrophils/100 WBC Auto (Bl d)Ordered By: Rodolfo Harley on 08-05-2022 Neutrophils/100 WBC (Bld) 59.9 % . [facility] No Panel InformationOrdered By: Rodolfo Harley on 08-05-2022 Estimated GFR () > 60 mL/Min [facility] Comment on above: GFR estimated refere nce range: According to KDOQI guidelines, <60 ml/min/1.73m2 is sufficient to diagnose a patient with chronic kidney disease. Pharmacy Creatinine Clearance (Chem N/A [facility] Platelet mean volume Auto (B ld) [Entitic vol]Ordered By: Rodolfo Harley on 08-05-2022 Platelet mean volume (Bld) [Entitic vol] 8.1 fL 6.3-10.7 [facility] Platelet poor plasma interna tional normalized ratio (INR) by coagulation assay (relatOrdered By: Rodolfo Harley on 08-05-2022 INR Coag (PPP) [Relative time] 1.1 {INR} [facility] Comment on above: INR Therapeutic [...] 08-05-2022 Platelets (Bld) [#/Vol] 243 10*3/uL 150-450 [facility] Protein [Mass/volume] in Ser um or PlasmaOrdered By: Rodolfo Harley on 08-05-2022 Protein [Mass/Vol] 6.7 g/dL 6.1-7.9 [facility] RBC Auto (Bld) [#/Vol]Ordere d By: Rodolfo Harley on 08-05-2022 RBC (Bld) [#/Vol] 5.04 10*6/uL 3.60-5.[address] [facility] Serum or plasma alanine snyder otransferase measurement without P-5'-P (enzymatic activiOrdered By: Rodolfo Harley on 08-05-2022 ALT No additional P-5'-P [Catalytic activity/Vol] 14 U/L 10-60 [facility] Serum or plasma albumin/glob ulin mass ratioOrdered By: Rodolfo Harley on 08-05-2022 Albumin/Globulin [Mass ratio] 1.3 {ratio} [facility] Serum or plasma alkaline sruthi sphatase measurement (enzymatic activity/volume)Ordered By: Rodolfo Harley on 08-05-2022 ALP [Catalytic activity/Vol] 91 U/L 32-92 [facility] Serum or plasma anion gap de terminationOrdered By: Roodlfo Harley on 08-05-2022 Anion gap [Moles/Vol] 14.3 mmol/L 6.0-15.0 [facility] Serum or plasma aspartate am inotransferase measurement (enzymatic activity/volume)Ordered By: Rodolfo Harley on 08-05-2022 AST [Catalytic activity/Vol] 21 U/L 10-42 [facility] Serum or plasma calcium dagoberto urement (mass/volume)Ordered By: Rodolfo Harley on 08-05-2022 Calcium [Mass/Vol] 9.5 mg/dL 8.2-10.2 [facility] Serum or plasma chloride anahy surement (moles/volume)Ordered By: Rodolfo Harley on 08-05-2022 Chloride [Moles/Vol] 102 mmol/L 95-114 [facility] Serum or plasma glucose dagoberto urement (mass/volume)Ordered By: Rodolfo Harley on 08-05-2022 Glucose [Mass/Vol] 76 mg/dL 70-100 [facility] Comment on above: ADA recommended refe rence rangeRandom Glucose Reference Range is dependent on time and content of last meal. Glucose of more than 200 mg/dL in a nonstressed, ambulatory subject supports the diagnosis of Diabetes Mellitus. Serum or plasma potassium me asurement (moles/volume)Ordered By: Rodolfo Harley on 08-05-2022 Potassium [Moles/Vol] 3.8 mmol/L 3.5-5.1 [facility] Serum or plasma sodium measu rement (moles/volume)Ordered By: Rodolfo Harley on 08-05-2022 Sodium [Moles/Vol] 138 mmol/L 136-146 [facility] Serum or plasma total biliru bin measurement (mass/volume)Ordered By: Rodolfo Harley on 08-05-2022 Bilirubin [Mass/Vol] 0.7 mg/dL 0.3-1.2 [facility] Serum or plasma total carbon dioxide measurement (moles/volume)Ordered By: Rodolfo Harley on 08-05-2022 CO2 [Moles/Vol] 25.5 mmol/L 22.0-30.0 [facility] Serum or plasma urea nitroge n measurement (mass/volume)Ordered By: Rodolfo Harley on 08-05-2022 Urea nitrogen [Mass/Vol] 12 mg/dL - [facility] Urine culture routineOrdered By: Rodolfo Harley on 08-05-2022 Bacteria identified Cx Nom (U) 2 Days [facility] XR ANKLE LT MIN 3 Von 2021 XR ANKLE LT MIN 3 V Normal BNPon 07-06-2022 Natriuretic peptide B (Bld) [Mass/Vol] 843.0 pg/mL Normal <=900.0 [facility] Comment on above: Performed By: #### B SALON ASSISTANT, CRP, CMP ####[facility] [address] [place], [place] [address]OxChen Rogel CBC W MANUAL DIFFon 07-06-20 22 ATYPICAL LYMPH # Normal [facility] Comment on above: Performed By: #### C BCMAN ####[facility] [address] [place] [address]Dr. Shahbaz Rogel ATYPICAL LYMPH % Normal [facility] Comment on above: Performed By: #### C BCMAN ####[facility] [address] [place] [address]Dr. Yilan Rogel BAND # 0.0 103/ul Normal 0.0-0.3 [facility] Comment on above: Performed By: #### C BCMAN ####[facility] [address] [place] [address]Dr. Yilan Rogel BAND % 0 % Normal 0-5 [facility] Comment on above: Performed By: #### C BCMAN ####[facility] Prkyiasz[address] [place], [place] [address]Dr. Yijarrod Rogel BASOM # 0.00 103/ul Normal 0.00-0.10 [facility] Comment on above: Performed By: #### C BCBRICE ####[facility] Zg[address]rm[address] [place], [place] [address]Dr. Shahbaz Rogel BASOM % 0.0 % Critically low 0.2-2.0 [facility] Comment on above: Performed By: #### C BCBRICE ####[facility] [address]wucj[address] [place], [place] [address]Dr. Yilan Rogel BLAST # Normal [facility] Comment on above: Performed By: #### C BCBRICE ####[facility] Vcqddlral[address] [place], [place] [address]Dr. Shahbaz Rogel BLAST % Normal [facility] Comment on above: Performed By: #### C BCMAN ####[facility] [address]vblljcvm[address] [place], [place] [address]Dr. Shahbaz Rogel CORRECTED WBC Normal 4.0-11.0 [facility] Comment on above: Performed By: #### C BCMAN ####[facility] [address]ks[address] [place], [place] [address]Dr. Yijarrod Rogel EOS # 0.00 103/ul Normal 0.00-0.70 [facility] Comment on above: Performed By: #### C BCMAN ####[facility] [address] [place], [place] [id number]. Shahbaz Rogel EOS% 0.0 % Critically low 0.9-7.0 Comment on above: Performed By: #### C CAIN ####[facility] [address] [place] [address]Dr. Shahbaz Rogel HCT 40.3 % Normal 36.0-48.0 Comment on above: Performed By: #### C CAIN ####[facility] [address] [place] [address]Dr. Shahbaz Rogel HGB 12.7 g/dl Normal 12.0-16.0 [facility] Comment on above: Performed By: #### C CAIN ####[facility] [address]rm[address] [place] [address]Dr. Shahbaz Rogel LYMPHM # 0.41 103/ul Critically low 1.20-3.80 [facility] Comment on above: Performed By: #### C CAIN ####[facility] [address]yy[address] [place] [address]Dr. Shahbaz Rogel LYMPHM% 7.0 % Critically low 20.5-60.0 [facility] Comment on above: Performed By: #### Cheri BARLOW ####[facility] [address] [place] [address]Dr. Shahbaz Rogel MCH 28.0 pg Normal 26.7-34.0 Comment on above: Performed By: #### C CAIN ####[facility] [address] [place] [address]Dr. Shahbaz Rogel MCHC 31.5 g/dl Normal 29.9-35.2 [facility] Comment on above: Performed By: #### C CAIN ####[facility] [address]ir[address] [place] [address]Dr. Shahbaz Rogel MCV 89.0 fL Normal 81.0-99.0 [facility] Comment on above: Performed By: #### C CAIN ####[facility] [address] [place], [place] [address]Dr. Shahbaz Rogel METAMYELOCYTE # Normal [facility] Comment on above: Performed By: #### C CAIN ####[facility] [address] [place] [address]Dr. Shahbaz Rogel METAMYELOCYTE % Normal [facility] Comment on above: Performed By: #### C CAIN ####[facility] [address] [place] [address]Dr. Shahbaz Rogel MONOM# 0.00 103/ul Critically low 0.30-0.80 Comment on above: Performed By: #### C CAIN ####[facility] [address]ws[address] [place] [address]Dr. Shahbaz Rogel MONOM% 0.0 % Critically low 1.7-12.0 Comment on above: Performed By: #### C CAIN ####[facility] [address]em[address] [place] [address]Dr. Shahbaz Rogel MPV 9.8 fL Normal 9.5-13.5 Comment on above: Performed By: #### C CAIN ####[facility] [address] [place] [address]Dr. Shahbaz Rogel MYELOCYTE # Normal Comment on above: Performed By: #### C CAIN ####[facility] Xbj[address]cx[address] [place] [address]Dr. Shahbaz Rogel MYELOCYTE % Normal [facility] Comment on above: Performed By: #### C CAIN ####[facility] [address] [place], [place] [id number]. Shahbaz Rogel NRBC Normal Comment on above: Performed By: #### C CAIN ####[facility] [address]zvlckabsq[address] [place] [address]Dr. Shahbaz Rogel PLT 187 103/ul Normal 150-450 [facility] Comment on above: Performed By: #### C CAIN ####[facility] [address]alpg[address]hf[address] [place] [address]Dr. Shahbaz Rogel RBC 4.53 106/ul Normal 4.20-5.40 [facility] Comment on above: Performed By: #### C CAIN ####[facility] [address] [place] [address]Dr. Shahbaz Rogel RDW 13.3 % Normal 11.0-15.0 Comment on above: Performed By: #### C CAIN ####[facility] [address] [place] [address]Dr. Lilajarrod Rogel SEG # 5.49 103/ul Normal 1.40-6.50 [facility] Comment on above: Performed By: #### C CAIN ####[facility] Rd[address]ikuumm[address] [place] [address]Dr. Lilajarrod Juna F SEG % 93.0 % Critically high 43.0-75.0 [facility] Comment on above: Performed By: #### C CAIN ####[facility] [address] [place] [address]Dr. Shahbaz Rogel WBC 5.9 103/ul Normal 4.0-11.0 [facility] Comment on above: Performed By: #### C CAIN ####[facility] [address]htsy[address] [place] [address]Dr. Shahbaz Rogel CRPon 07-06-2022 CRP [Mass/Vol] mg/L Normal <=1.0 [facility] Comment on above: Performed By: #### B SALON ASSISTANT, CRP, CMP ####[facility] [address]fomjosnt[address] [place] [address]Dr. Shahbaz Rogel PROF 14(COMP METB)on 022 Albumin [Mass/Vol] 3.4 g/dL Normal 3.4-5.0 Comment on above: Performed By: #### B SALON ASSISTANT, CRP, CMP ####[facility] [address] [place] [address]Dr. Shahbaz Rogel Albumin/Globulin [Mass ratio] 1.0 {ratio} Normal [facility] Comment on above: Performed By: #### B SALON ASSISTANT, CRP, CMP ####[facility] [address]ia[address] [place] [address]Dr. Shahbaz Rogel ALP [Catalytic activity/Vol] 92 U/L Normal 46-116 [facility] Comment on above: Performed By: #### B SALON ASSISTANT, CRP, CMP ####[facility] Hdlglbywut[address] [place] [address]Dr. Shahbaz Rogel ALT [Catalytic activity/Vol] 21 U/L Normal 14-59 Comment on above: Performed By: #### B SALON ASSISTANT, CRP, CMP ####[facility] Mhpauwzwoc[address] [place] [address]Dr. Shahbaz Rogel Anion gap [Moles/Vol] 13.4 mmol/L Normal [facility] Comment on above: Performed By: #### B SALON ASSISTANT, CRP, CMP ####[facility] Pztfhsuaoj[address] [place], [place] [address]Dr. Shahbaz Rogel AST [Catalytic activity/Vol] 16 U/L Normal 15-37 Comment on above: Performed By: #### B SALON ASSISTANT, CRP, CMP ####[facility] Kxmminassc[address] [place], [place] [address]Dr. Shahbaz Rogel Bilirubin [Mass/Vol] 0.2 mg/dL Normal 0.2-1.0 [facility] Comment on above: Performed By: #### B SALON ASSISTANT, CRP, CMP ####[facility] Lqggkqld[address] [place], [place] [address]Dr. Shahbaz Rogel Calcium [Mass/Vol] 9.3 mg/dL Normal 8.5-10.1 Comment on above: Performed By: #### B SALON ASSISTANT, CRP, CMP ####[facility] Pfgyhapurz[address] [place], [place] [address]Dr. Shahbaz Rogel Chloride [Moles/Vol] 105 mmol/L Normal 98-107 [facility] Comment on above: Performed By: #### B SALON ASSISTANT, CRP, CMP ####[facility] Vceqfoieaa[address] [place], [place] [address]Dr. Shahbaz Rogel CO2 [Moles/Vol] 23.2 mmol/L Normal 21.0-32.0 [facility] Comment on above: Performed By: #### B SALON ASSISTANT, CRP, CMP ####[facility] Iewfawyxdc[address] [place], [place] [address]Dr. Shahbaz Rogel Creatinine [Mass/Vol] 1.23 mg/dL Critically high 0.55-1.02 Comment on above: Performed By: #### B SALON ASSISTANT, CRP, CMP ####[facility] X[address]ow[address] [place] [address]Dr. Shahbaz Rogel EGFR-AF ITALIAN 55 mL/min/1.73m2 Critically low >=60 Comment on above: Performed By: #### B SALON ASSISTANT, CRP, CMP ####[facility] Wmhldereic[address] [place] [address]Dr. Shahbaz Rogel EGFR-NON AF ITALIAN 45 mL/min/1.73m2 Critically low >=60 [facility] Comment on above: Performed By: #### B SALON ASSISTANT, CRP, CMP ####[facility] [address]ulu[address] [place] [address]Dr. Shahbaz Rogel Globulin (S) [Mass/Vol] 3.3 g/dL Normal Comment on above: Performed By: #### B SALON ASSISTANT, CRP, CMP ####[facility] Hitpubqbok[address] [place] [address]Dr. Shahbaz Rogel Glucose [Mass/Vol] 171 mg/dL Critically high 74-106 [facility] Comment on above: Performed By: #### B SALON ASSISTANT, CRP, CMP ####[facility] Erzzroigmx26[address] [place] [address]Dr. Shahbaz Rogel Potassium [Moles/Vol] 3.6 mmol/L Normal 3.5-5.1 Comment on above: Performed By: #### B SALON ASSISTANT, CRP, CMP ####[facility] Chihozoeba[address] [place] [address]Dr. Shahbaz Rogel Protein [Mass/Vol] 6.7 g/dL Normal 6.4-8.2 [facility] Comment on above: Performed By: #### B SALON ASSISTANT, CRP, CMP ####[facility] Ypeqqlqbvc[address] [place] [address]Dr. Shahbaz Rogel Sodium [Moles/Vol] 138 mmol/L Normal 136-145 Comment on above: Performed By: #### B SALON ASSISTANT, CRP, CMP ####[facility] [address]vimoofsu[address] [place] [address]Dr. Shahbaz Rogel Urea nitrogen [Mass/Vol] 21.0 mg/dL Critically high 7.0-18.0 [facility] Comment on above: Performed By: #### B SALON ASSISTANT, CRP, CMP ####[facility] [address]jyrslz[address] [place] [address]Dr. Shahbaz Rogel Urea nitrogen/Creatinine [Mass ratio] 17.1 mg/mg Normal [facility] Comment on above: Performed By: #### B SALON ASSISTANT, CRP, CMP ####[facility] Jhepbdtyuf[address] [place], [place] [address]Dr. Shahbaz Rogel XR CHEST 2 Von 07-06-2022 XR CHEST 2 V Normal [facility] BNPon 07-05-2022 Natriuretic peptide B (Bld) [Mass/Vol] 83.0 pg/mL Normal <=900.0 [facility] Comment on above: Performed By: #### C RP, CMP, BNP ####[facility] V[address]wjldwre[address] [place], [place] [address]Dr. Shahbaz Rogel CBC AUTO DIFFon 07-05-2022 BASO # 0.0 103/ul Normal 0.0-0.1 [facility] Comment on above: Performed By: #### C BC ####[facility] Lgzejdgmgu[address] [place], [place] [address]Dr. Shahbaz Juan F Basophils/100 WBC (Bld) 0.4 % Normal 0.2-2.0 [facility] Comment on above: Performed By: #### C BC ####[facility] V[address]htkgfgnx[address] [place], [place] [address]Dr. Shahbaz Juan F EO # 0.1 103/ul Normal 0.0-0.7 [facility] Comment on above: Performed By: #### C BC ####[facility] Bkthxhxwhd[address] [place], [place] [address]Dr. Shahbaz Juan F Eosinophils/100 WBC (Bld) 2.9 % Normal 0.9-7.0 [facility] Comment on above: Performed By: #### C BC ####[facility] Nkskxjkrpm[address] [place], [place] [address]Dr. Shahbaz Rogel Erythrocyte distribution width (RBC) [Ratio] 13.4 % Normal 11.0-15.0 Comment on above: Performed By: #### C BC ####[facility] [address]zpdsjfhf[address] [place], [place] [address]Dr. Shahbaz Rogel Hematocrit (Bld) [Volume fraction] 41.7 % Normal 36.0-48.0 Comment on above: Performed By: #### C BC ####[facility] Binihksupp[address] [place], [place] [address]Dr. Shahbaz Rogel Hemoglobin (Bld) [Mass/Vol] 12.9 g/dL Normal 12.0-16.0 Comment on above: Performed By: #### C BC ####[facility] Xcwnykkcmb[address] [place], [place] [address]Dr. Shahbaz Rogel IG # 0.00 10e3/ul Normal 0.00-0.03 [facility] Comment on above: Performed By: #### C BC ####[facility] [address]xaqgdhc[address] [place], [place] [address]Dr. Shahbaz Rogel IG % 0.0 % Normal 0.0-0.5 Comment on above: Performed By: #### C BC ####[facility] Evsgscqbhq[address] [place], [place] [address]Dr. Shahbaz Rogel LYMPH # 1.5 103/ul Normal 1.2-3.8 [facility] Comment on above: Performed By: #### C BC ####[facility] Rnkxcmudgj[address] [place], [place] [address]Dr. Shahbaz Rogel Lymphocytes/100 WBC (Bld) 32.9 % Normal 20.5-60.0 [facility] Comment on above: Performed By: #### C BC ####[facility] Nfkrpfqsmb[address] [place], [place] [address]Dr. Shahbaz Rogel MANUAL DIFF REQ NO Normal [facility] Comment on above: Performed By: #### C BC ####[facility] [address]nfydldyss24[address] [place] [address]Dr. Shahbaz Juan F MCH (RBC) [Entitic mass] 28.0 pg Normal 26.7-34.0 [facility] Comment on above: Performed By: #### C BC ####[facility] Whpebaoqgq6198 [place] [address]Dr. Shahbaz Juan F MCHC (RBC) [Mass/Vol] 30.9 g/dL Normal 29.9-35.2 [facility] Comment on above: Performed By: #### C BC ####[facility] Ykwgalxhzk8556 [place] [address]Dr. Lilajarrod Rogel MCV (RBC) [Entitic vol] 90.5 fL Normal 81.0-99.0 [facility] Comment on above: Performed By: #### C BC ####[facility] Nohmruljqm[address] [place], [place] [address]Dr. Shahbaz Rogel MONO # 0.4 103/ul Normal 0.3-0.8 [facility] Comment on above: Performed By: #### C BC ####[facility] Cdybjhyche[address] [place], [place] [address]Dr. Shahbaz Rogel Monocytes/100 WBC (Bld) 8.0 % Normal 1.7-12.0 [facility] Comment on above: Performed By: #### C BC ####[facility] Peq[address]xgxdf[address] [place], [place] [address]Dr. Shahbaz Rogel NEUT # 2.5 103/ul Normal 1.4-6.5 [facility] Comment on above: Performed By: #### C BC ####[facility] [address]ht[address] [place], [place] [address]Dr. Shahbaz Rogel Neutrophils/100 WBC (Bld) 55.8 % Normal 43.0-75.0 [facility] Comment on above: Performed By: #### C BC ####[facility] Prifmwlk[address] [place], [place] [address]Dr. Shahbaz Rogel Platelet mean volume (Bld) [Entitic vol] 9.7 fL Normal 9.5-13.5 [facility] Comment on above: Performed By: #### C BC ####[facility] [address]qc[address] [place] [address]Dr. Shahbaz Rogel PLT 158 103/ul Normal 150-450 Comment on above: Performed By: #### C BC ####[facility] Uhdocygpex6[address] [place] [address]Dr. Shahbza Rogel RBC 4.61 106/ul Normal 4.20-5.40 [facility] Comment on above: Performed By: #### C BC ####[facility] [address]ftf[address] [place] [address]Dr. Shahbaz Rogel WBC 4.5 103/ul Normal 4.0-11.0 Comment on above: Performed By: #### C BC ####[facility] [address]me[address] [place] [address]Dr. Shahbaz Rogel CRPon 07-05-2022 CRP [Mass/Vol] mg/L Normal <=1.0 Comment on above: Performed By: #### C RP, CMP, BNP ####[facility] [address] [place] [address]Dr. Shahbaz Rogel ECHO LIMITED STUDYon ECHO LIMITED STUDY Normal [facility] PROF 14(COMP METB)on Albumin [Mass/Vol] 3.2 g/dL Critically low 3.4-5.0 Th [facility] Comment on above: Performed By: #### C RP, CMP, BNP ####[facility] [address]qofxzoi[address] [place] [address]Dr. Shahbaz Rogel Albumin/Globulin [Mass ratio] 1.0 {ratio} Normal [facility] Comment on above: Performed By: #### C RP, CMP, BNP ####[facility] Tld[address]xc[address]406 [place] [address]Dr. Shahbaz Rogel ALP [Catalytic activity/Vol] 88 U/L Normal 46-116 [facility] Comment on above: Performed By: #### C RP, CMP, BNP ####[facility] [address]zrwrode[address] [place] [address]Dr. Shahbaz Rogel ALT [Catalytic activity/Vol] 17 U/L Normal 14-59 [facility] Comment on above: Performed By: #### C RP, CMP, BNP ####[facility] [address]kn[address]adq[address] [place] [address]Dr. Shahbaz Rogel Anion gap [Moles/Vol] 12.5 mmol/L Normal Th e [facility] Comment on above: Performed By: #### C RP, CMP, BNP ####[facility] [address]fgdzfr[address] [place] [address]Dr. Shahbaz Rogel AST [Catalytic activity/Vol] 18 U/L Normal 15-37 Comment on above: Performed By: #### C RP, CMP, BNP ####[facility] [address]xgaylhjiu[address] [place] [address]Dr. Shahbaz Rogel Bilirubin [Mass/Vol] 0.3 mg/dL Normal 0.2-1.0 [facility] Comment on above: Performed By: #### C RP, CMP, BNP ####[facility] [address]fqnxk[address] [place], [place] [address]Dr. Shahbaz Rogel Calcium [Mass/Vol] 8.9 mg/dL Normal 8.5-10.1 [facility] Comment on above: Performed By: #### C RP, CMP, BNP ####[facility] Ekwqoglusm[address] [place] [address]Dr. Shahbaz Rogel Chloride [Moles/Vol] 103 mmol/L Normal 98-107 [facility] Comment on above: Performed By: #### C RP, CMP, BNP ####[facility] Zpcyaoblph[address] [place] [address]Dr. Shahbaz Rogel CO2 [Moles/Vol] 28.1 mmol/L Normal 21.0-32.0 [facility] Comment on above: Performed By: #### C RP, CMP, BNP ####[facility] Txsuygxjad[address] [place] [address]Dr. Shahbaz Rogel Creatinine [Mass/Vol] 1.24 mg/dL Critically high 0.55-1.02 [facility] Comment on above: Performed By: #### C RP, CMP, BNP ####[facility] [address]dsoiceijx[address] [place] [address]Dr. Shahbaz Rogel EGFR-AF ITALIAN 54 mL/min/1.73m2 Critically low >=60 Comment on above: Performed By: #### C RP, CMP, BNP ####[facility] Bsogmgcyzk5472 [place] [address]Dr. Shahbaz Rogel EGFR-NON AF ITALIAN 45 mL/min/1.73m2 Critically low >=60 Comment on above: Performed By: #### C RP, CMP, BNP ####[facility] Wdstdrljjn[address] [place] [address]Dr. Shahbaz Rogel Globulin (S) [Mass/Vol] 3.1 g/dL Normal Comment on above: Performed By: #### C RP, CMP, BNP ####[facility] Mnnhuuuxma[address] [place], [place] [address]Dr. Shahbaz Rogel Glucose [Mass/Vol] 115 mg/dL Critically high 74-106 [facility] Comment on above: Performed By: #### C RP, CMP, BNP ####[facility] [address]kfmupvuek[address] [place], [place] [address]Dr. Shahbaz Rogel Potassium [Moles/Vol] 3.6 mmol/L Normal 3.5-5.1 Comment on above: Performed By: #### C RP, CMP, BNP ####[facility] [address]zoqktfhdx[address] [place], [place] [address]Dr. Shahbaz Rogel Protein [Mass/Vol] 6.3 g/dL Critically low 6.4-8.2 [facility] Comment on above: Performed By: #### C RP, CMP, BNP ####[facility] Usiynhpcbw[address] [place], [place] [address]Dr. Shahbaz Rogel Sodium [Moles/Vol] 140 mmol/L Normal 136-145 Comment on above: Performed By: #### C RP, CMP, BNP ####[facility] [address]pcyshfmbw[address] [place], [place] [address]Dr. Shahbaz Juan F Urea nitrogen [Mass/Vol] 18.0 mg/dL Normal 7.0-18.0 [facility] Comment on above: Performed By: #### C RP, CMP, BNP ####[facility] [address]zuozqtimx[address] [place] [address]Dr. Shahbaz Rogel Urea nitrogen/Creatinine [Mass ratio] 14.5 mg/mg Normal [facility] Comment on above: Performed By: #### C RP, CMP, BNP ####[facility] Ofkfmwxnsj25[address] [place] [address]Dr. Shahbaz Juan F T3, TOTAL (TRIIODOTHYRONINE) on 07-05-2022 T3, TOTAL 95 ng/dL Normal 71-180 [facility] Comment on above: Performed By: #### T 3TOTAL ####[facility] [address]ytw[address] [place] [address]Dr. Shahbaz Juan F CARDIAC ROSALINA 3-6on 2 CK [Catalytic activity/Vol] 78 U/L Normal 26-192 [facility] Comment on above: Performed By: #### C MREP ####[facility] Iaobkfsnrr[address] [place] [address]Dr. Shahbaz Juan F CK.MB [Mass/Vol] 1.44 ng/mL Normal <=3.60 [facility] Comment on above: Performed By: #### C MREP ####[facility] Cpabbjbben[address] [place] [address]Dr. Shahbaz Rogel HSTROP 9.0 pg/mL Normal 4.0-51.3 [facility] Comment on above: Result Comment: CUT- OFF POINTS HAVE BEEN ESTABLISHED BASED ON THE FOURTH UNIVERSAL DEFINITIONS OF MYOCARDIALINFARCTION. THE UPPER REFERENCE LIMIT (URL) OF TROPONIN, DEFINED THE 99TH PERCENTILE OFcTnI DISTRIBUTION IN A REFERENCE POPULATION, HAS BEEN CONFIRMED THE DECISION THRESHOLDFOR [place] DIAGNOSIS. Performed By: #### C MREP ####[facility] [address]unxb[address] [place] [address]Dr. Shahbaz Juan F CK [Catalytic activity/Vol] 88 U/L Normal 26-192 [facility] Comment on above: Performed By: #### C MREP ####[facility] Omejtsczol[address] [place] [id number]. Shahbaz Rogel CK.MB [Mass/Vol] 1.38 ng/mL Normal <=3.60 [facility] Comment on above: Performed By: #### C MREP ####[facility] S[address]rcgnouf22[address] [place] [address]Dr. Shahbaz Rogel HSTROP 7.0 pg/mL Normal 4.0-51.3 [facility] Comment on above: Result Comment: CUT- OFF POINTS HAVE BEEN ESTABLISHED BASED ON THE FOURTH UNIVERSAL DEFINITIONS OF MYOCARDIALINFARCTION. THE UPPER REFERENCE LIMIT (URL) OF TROPONIN, DEFINED THE 99TH PERCENTILE OFcTnI DISTRIBUTION IN A REFERENCE POPULATION, HAS BEEN CONFIRMED THE DECISION THRESHOLDFOR TX DIAGNOSIS. Performed By: #### C MREP ####[facility] [address]mmwjujsq[address] [place] [address]Dr. Shahbaz Rogel CARDIAC ROSALINA ADMITon 022 CK [Catalytic activity/Vol] 87 U/L Normal 26-192 [facility] Comment on above: Performed By: #### C JACKSON, CMADM ####[facility] [address]tgq[address]zcqi[address] [place] [id number]. Shahbaz Rogel CK.MB [Mass/Vol] 1.80 ng/mL Normal <=3.60 [facility] Comment on above: Performed By: #### C JACKSON, CMADM ####[facility] Ljhhdrkzye27[address] [place] [address]Dr. Shahbaz Rogel HSTROP 7.6 pg/mL Normal 4.0-51.3 [facility] Comment on above: Result Comment: CUT- OFF POINTS HAVE BEEN ESTABLISHED BASED ON THE FOURTH UNIVERSAL DEFINITIONS OF MYOCARDIALINFARCTION. THE UPPER REFERENCE LIMIT (URL) OF TROPONIN, DEFINED THE 99TH PERCENTILE OFcTnI DISTRIBUTION IN A REFERENCE POPULATION, HAS BEEN CONFIRMED THE DECISION THRESHOLDFOR TX DIAGNOSIS. Performed By: #### C JACKSON, CMADM ####[facility] Kllggydoyu[address] [place] [id number]. Shahbaz Rogel LEN 67 ng/mL Normal 9-82 [facility] Comment on above: Performed By: #### C JACKSON, CMADM ####[facility] Uqpswqygfm2836 [place] [address]Dr. Shahbaz Juan F CBC AUTO DIFFon 07-04-2022 BASO # 0.0 103/ul Normal 0.0-0.1 [facility] Comment on above: Performed By: #### C BC ####[facility] Qozjdifxmb5504 [place] [id number]. Shahbaz Rogel Basophils/100 WBC (Bld) 0.7 % Normal 0.2-2.0 [facility] Comment on above: Performed By: #### C BC ####[facility] [address]fn[address] [place], [place] [id number]. Shahbaz Rogel EO # 0.1 103/ul Normal 0.0-0.7 [facility] Comment on above: Performed By: #### C BC ####[facility] Odpigwwnoj[address] [place], [place] [address]Dr. Shahbaz Rogel Eosinophils/100 WBC (Bld) 3.4 % Normal 0.9-7.0 [facility] Comment on above: Performed By: #### C BC ####[facility] Cybiyujzcu[address] [place], [place] [address]Dr. Lilajarrod Rogel Erythrocyte distribution width (RBC) [Ratio] 13.3 % Normal 11.0-15.0 [facility] Comment on above: Performed By: #### C BC ####[facility] Vcmvdaulku[address] [place], [place] [address]Dr. Shahbaz Rogel Hematocrit (Bld) [Volume fraction] 42.1 % Normal 36.0-48.0 [facility] Comment on above: Performed By: #### C BC ####[facility] Ekhezbdwdy[address] [place], [place] [address]Dr. Shahbaz Rogel Hemoglobin (Bld) [Mass/Vol] 13.3 g/dL Normal 12.0-16.0 [facility] Comment on above: Performed By: #### C BC ####[facility] Ddoruygqwv[address] [place], [place] [address]Dr. Shahbaz Rogel IG # 0.01 10e3/ul Normal 0.00-0.03 [facility] Comment on above: Performed By: #### C BC ####[facility] Teblgmphnc[address] [place] [address]Dr. Lilajarrod Rogel IG % 0.3 % Normal 0.0-0.5 Comment on above: Performed By: #### C BC ####[facility] [address]chthstg[address] [place] [address]Dr. Lilajarrod Rogel LYMPH # 1.0 103/ul Critically low 1.2-3.8 Comment on above: Performed By: #### C BC ####[facility] Xmlfeysewi[address] [place], [place] [address]Dr. Lilajarrod Rogel Lymphocytes/100 WBC (Bld) 35.6 % Normal 20.5-60.0 Comment on above: Performed By: #### C BC ####[facility] Itfxqlrhfv[address] [place], [place] [address]Dr. Shahbaz Rogel MANUAL DIFF REQ NO Normal Comment on above: Performed By: #### C BC ####[facility] Tsflssmjti[address] [place], [place] [address]Dr. Shahbaz Juan F MCH (RBC) [Entitic mass] 27.9 pg Normal 26.7-34.0 Comment on above: Performed By: #### C BC ####[facility] Ffqdcpzjjw[address] [place], [place] [address]Dr. Shahbaz Juan F MCHC (RBC) [Mass/Vol] 31.6 g/dL Normal 29.9-35.2 [facility] Comment on above: Performed By: #### C BC ####[facility] Ojmhezbpyn[address] [place], [place] [address]Dr. Shahbaz Juan F MCV (RBC) [Entitic vol] 88.3 fL Normal 81.0-99.0 [facility] Comment on above: Performed By: #### C BC ####[facility] Ezkgaoipps[address] [place], [place] [address]Dr. Shahbaz Rogel MONO # 0.2 103/ul Critically low 0.3-0.8 [facility] Comment on above: Performed By: #### C BC ####[facility] Ekpzyxwgth2448 [place] [address]Dr. Shahbaz Rogel Monocytes/100 WBC (Bld) 7.9 % Normal 1.7-12.0 [facility] Comment on above: Performed By: #### C BC ####[facility] Ndaeoonpdy[address] [place] [address]Dr. Shahbaz Rogel NEUT # 1.5 103/ul Normal 1.4-6.5 [facility] Comment on above: Performed By: #### C BC ####[facility] Zckgxuachm2091 [place] [address]Dr. Shahbaz Rogel Neutrophils/100 WBC (Bld) 52.1 % Normal 43.0-75.0 [facility] Comment on above: Performed By: #### C BC ####[facility] Zzbpmfrbrv8770 [place] [address]Dr. Shahbaz Rogel Platelet mean volume (Bld) [Entitic vol] 9.5 fL Normal 9.5-13.5 Comment on above: Performed By: #### C BC ####[facility] Fkmmuglsrd5803 [place] [address]Dr. Shahbaz Rogel PLT 172 103/ul Normal 150-450 [facility] Comment on above: Performed By: #### C BC ####[facility] Ofmuuupjoi5686 [place] [address]Dr. Shahbaz Rogel RBC 4.77 106/ul Normal 4.20-5.40 [facility] Comment on above: Performed By: #### C BC ####[facility] Evmyfdpokv0458 [place] [address]Dr. Shahbaz Rogel WBC 2.9 103/ul Critically low 4.0-11.0 [facility] Comment on above: Performed By: #### C BC ####[facility] Yiabdbqyty9861 [place] [address]Dr. Shahbaz Rogel CELL COUNT BODY FLUIDon 10-0 BASOS Normal [facility] Comment on above: Performed By: #### B FCC ####[facility] Gkzrmzgubb2793 [place] [address]Dr. Shahbaz Rogel Eosinophils/100 WBC (Bld) 4 % Normal [facility] Comment on above: Performed By: #### B FCC ####[facility] Oxgnpjjjwk[address] [place], [place] [address]Dr. Shahbaz Rogel Lymphocytes/100 WBC (Bld) 12 % Normal [facility] Comment on above: Performed By: #### B FCC ####[facility] Gumekmmkks[address] [place], [place] [address]Dr. Shahbaz Rogel Monocytes/100 WBC (Bld) 4 % Normal [facility] Comment on above: Performed By: #### B FCC ####[facility] Zzkeheqqob[address] [place], [place] [address]Dr. Shahbaz Rogel RBC 67 cubic mm Normal Comment on above: Performed By: #### B FCC ####[facility] Ylvbavxmck[address] [place], [place] [address]Dr. Shahbaz Rogel SEGS 80 % Normal Comment on above: Performed By: #### B FCC ####[facility] Bvskmpzqta[address] [place], [place] [address]Dr. Shahbaz Rogel WBC BODY FLUID 223 cubic mm Normal Comment on above: Performed By: #### B FCC ####[facility] Iytwmszozf[address] [place], [place] [address]Dr. Shahbaz Rogel CULTURE OTHERon 07-04-2022 CULTURE OTHER Culture Observations : NO GROWTH AT 48 HOURS. Normal [facility] Comment on above: Performed By: #### O THCX ####[facility] Dzqhapprku[address] [place], [place] [address]Dr. Shahbaz Rogel CYTOLOGYon 07-04-2022 SENT TO REF LAB 07/04/22 Normal Comment on above: Performed By: #### C YTO ####[facility] Ehymlynqjy[address] [place], [place] [address]Dr. Shahbaz Rogel Covid-19 PCR (CVDTBH)on SARS-CoV-2 (COVID-19) RNA PAVAN+probe Ql (Unsp spec) Not detected Normal NOT DETECTED [facility] Comment on above: Result Comment: When diagnostic [...] for this test is supported by the [place] of Health and Human Service's declaration that [...] be used). Performed By: #### C VDTBH ####[facility] Hrphfcsjvt27[address] [place], [place] [address]Dr. Shahbaz Rogel GRAM STAINon 07-04-2022 COMMENTS NO ORGANISMS OBSERVED Normal [facility] Comment on above: Performed By: #### G STAIN ####[facility] Vkrjjdrbnv[address] [place], [place] [address]Dr. Shahbaz Rogel DIPHTHEROIDS Normal [facility] Comment on above: Performed By: #### G STAIN ####[facility] Vlfphdixni[address] [place], [place] [address]Dr. Shahbaz Rogel EPITHELIALS Normal [facility] Comment on above: Performed By: #### G STAIN ####[facility] Wgmniwbilm[address] [place], [place] [address]Dr. Shahbaz Rogel FUNGAL ELEMENTS Normal [facility] Comment on above: Performed By: #### G STAIN ####[facility] Obklctpfpe[address] [place], [place] [address]Dr. Shahbaz Rogel GRAM NEG BACILLI Normal [facility] Comment on above: Performed By: #### G STAIN ####[facility] Dwcupkuuue[address] [place], [place] [address]Dr. Shahbaz Rogel GRAM NEG DIPPLOCOCCI Normal [facility] Comment on above: Performed By: #### G STAIN ####[facility] Uzyicmvtzv[address] [place] [address]Dr. Shahbaz Rogel GRAM POS BACILLI Normal [facility] Comment on above: Performed By: #### G STAIN ####[facility] Dccoaqozup[address] [place] [address]Dr. Shahbaz Rogel GRAM POSITIVE COCCI Normal [facility] Comment on above: Performed By: #### G STAIN ####[facility] Xwihesbopi[address] [place] [address]Dr. Shahbaz Rogel GRAM STAIN SOURCE Rt Lower Lobe Bronch ial Washing Normal [facility] Comment on above: Performed By: #### G STAIN ####[facility] Liudzkxtwk[address] [place], [place] [address]Dr. Shahbaz Rogel GS_DIPTH Normal [facility] Comment on above: Performed By: #### G STAIN ####[facility] Xfyzqqapmw[address] [place], [place] [address]Dr. Shahbaz Rogel WBC RARE Normal [facility] Comment on above: Performed By: #### G STAIN ####[facility] Xhgmyokxtq23[address] [place], [place] [address]Dr. Shahbaz Rogel PROF 14(COMP METB)on 022 Albumin [Mass/Vol] 3.6 g/dL Normal 3.4-5.0 Comment on above: Performed By: #### C CINDY PAZ ####[facility] Spiajovvny[address] [place], [place] [address]Dr. Shahbaz Rogel Albumin/Globulin [Mass ratio] 1.1 {ratio} Normal [facility] Comment on above: Performed By: #### C CINDY PAZ ####[facility] Lrbohtfrrx[address] [place], [place] [address]Dr. Shahbaz Rogel ALP [Catalytic activity/Vol] 102 U/L Normal 46-116 [facility] Comment on above: Performed By: #### C CINDY PAZ ####[facility] Xkaaxwjetp[address] [place], [place] [address]Dr. Shahbaz Rogel ALT [Catalytic activity/Vol] 19 U/L Normal 14-59 [facility] Comment on above: Performed By: #### C JACKSON, CINDY ####[facility] Kizpgwlqto[address] [place] [address]Dr. Shahbaz Rogel Anion gap [Moles/Vol] 9.5 mmol/L Normal [facility] Comment on above: Performed By: #### C JACKSON, CINDY ####[facility] Mzpacbyhsm[address] [place], [place] [address]Dr. Shahbaz Rogel AST [Catalytic activity/Vol] 19 U/L Normal 15-37 [facility] Comment on above: Performed By: #### C CINDY PAZ ####[facility] Vtlbqqykaf[address] [place], [place] [address]Dr. Shahbaz Rogel Bilirubin [Mass/Vol] 0.3 mg/dL Normal 0.2-1.0 [facility] Comment on above: Performed By: #### C CINDY PAZ ####[facility] Zgjsktly[address] [place], [place] [address]Dr. Shahbaz Rogel Calcium [Mass/Vol] 8.8 mg/dL Normal 8.5-10.1 [facility] Comment on above: Performed By: #### C CINDY PAZ ####[facility] Pillzdwsdk[address] [place], [place] [address]Dr. Shahbaz Rogel Chloride [Moles/Vol] 107 mmol/L Normal 98-107 [facility] Comment on above: Performed By: #### C CINDY PAZ ####[facility] Xitjpmwxwz[address] [place], [place] [address]Dr. Shahbaz Rogel CO2 [Moles/Vol] 29.5 mmol/L Normal 21.0-32.0 [facility] Comment on above: Performed By: #### C CINDY PAZ ####[facility] Qergdwovmm[address] [place], [place] [address]Dr. Shahbaz Rogel Creatinine [Mass/Vol] 0.97 mg/dL Normal 0.55-1.02 [facility] Comment on above: Performed By: #### C CINDY PAZ ####[facility] [address]btfalgub7[address] [place] [address]Dr. Shahbaz Rogel EGFR-AF ITALIAN >60 Normal >=60 [facility] Comment on above: Performed By: #### C JACKSON, CMADM ####[facility] Egdgcpygso28[address] [place] [address]Dr. Shahbaz Rogel EGFR-NON AF ITALIAN 59 mL/min/1.73m2 Critically low >=60 [facility] Comment on above: Performed By: #### C JACKSON, CMADM ####[facility] Urbdbujtqp8[address] [place] [address]Dr. Shahbaz Rogel Globulin (S) [Mass/Vol] 3.2 g/dL Normal [facility] Comment on above: Performed By: #### C JACKSON, CMADM ####[facility] Umazsvqnci50[address] [place] [address]Dr. Shahbaz Rogel Glucose [Mass/Vol] 89 mg/dL Normal 74-106 [facility] Comment on above: Performed By: #### C JACKSON, CMADM ####[facility] Iwldtxdtlf2572 [place] [address]Dr. Shahbaz Rogel Potassium [Moles/Vol] 4.0 mmol/L Normal 3.5-5.1 [facility] Comment on above: Performed By: #### C JACKSON, CMADM ####[facility] Elmgwlcmks4[address] [place] [address]Dr. Lilalan Rogel Protein [Mass/Vol] 6.8 g/dL Normal 6.4-8.2 [facility] Comment on above: Performed By: #### C JACKSON, CMADM ####[facility] Rctmacuyxx1249 [place] [address]Dr. Shahbaz Rogel Sodium [Moles/Vol] 142 mmol/L Normal 136-145 [facility] Comment on above: Performed By: #### C JACKSON, CMADM ####[facility] Merrmmtdhr1077 [place] [address]Dr. Lilalan Rogel Urea nitrogen [Mass/Vol] 11.0 mg/dL Normal 7.0-18.0 [facility] Comment on above: Performed By: #### C JACKSON, CMADM ####[facility] Gxoxfkezny7570 [place] [address]Dr. Shahbaz Rogel Urea nitrogen/Creatinine [Mass ratio] 11.3 mg/mg Normal Comment on above: Performed By: #### C MP, CMADM ####[facility] Lomkgessnk1075 [place] [address]Dr. Shahbaz Rogel T4on 07-04-2022 T4 [Mass/Vol] 4.70 ug/dL Critically low 4.80-13.90 Comment on above: Performed By: #### T SH, T4 ####[facility] Ywkkardskb76[address] [place] [address]Dr. Shahbaz Rogel TSHon 07-04-2022 TSH 0.359 uIU/mL Normal 0.358-3.74 0 Comment on above: Performed By: #### T SH, T4 ####[facility] Qowkcdnepi[address] [place], [place] [address]Dr. Shahbaz Rogel XR CHEST 1 Von 07-04-2022 XR CHEST 1 V Normal [facility] XR CHEST 1 V Normal [facility] CHLAMYDIA PNEUMONIAE IgG IgM IgAon 06-27-2022 Chlamydia pneumoniae IgA <1:16 Normal Neg:<1:16 Comment on above: Performed By: #### C HLMPNE ####[facility] [address]zvfslwa[address] [place], [place] [address]Dr. Shahbaz Rogel Chlamydia pneumoniae IgG <1:16 Normal Neg:<1:16 [facility] Comment on above: Performed By: #### C HLMPNE ####[facility] Xcujeozvgp[address] [place], [place] [address]Dr. Shahbaz Rogel Chlamydia pneumoniae IgM <1:10 Normal Neg:<1:10 Comment on above: Performed By: #### C HLMPNE ####[facility] Zjwrvktxit[address] [place], [place] [address]Dr. Shahbaz Rogel Test Information: Comment Normal [facility] Comment on above: Result Comment: This test [...] or procedure. Performed By: #### C HLMPNE ####[facility] Ksfsnisafw9[address] [place] [id number]. Shahbaz Rogel [facility]on [facility]-03 SARS-CoV-2 (COVID-19) RNA PAVAN+probe Ql (Unsp spec) Not detected Normal NOT DETECTED [facility] Comment on above: Result Comment: This test is not yet approved or cleared by the [place] FDA. When there are no FDA-approved or cleared tests available, and other criteria are met, FDA can make tests available under an emergency access mechanism called an Emergency Use Authorization (EUA). The EUA for this test is supported by the [place] of Health and Human Service's (HHS's) declaration [...] with SARS-CoV-2. Performed By: #### C VDTBH ####[facility] Gsgehsblrp85[address] [place] [address]Dr. Shahbaz Rogel CYCLIC CITRULLINATED PEPTIDE AB (CCP)on 06-25-2022 CCP Antibodies IgG/IgA 13 units Normal 0-19 [facility] Comment on above: Result Comment: Nega tive <20 Weak positive 20 - 39 Moderate positive 40 - 59 Strong positive >59 Performed By: #### C CPAB ####[facility] Txvoococze6371 [place] [id number] Rogel ANTI NEUTROPHIL CYTOPLASMIC AB (ANCA) PRon 06-24-2022 Anti-MPO Antibodies <0.2 Normal 0.0-0.9 Comment on above: Result Comment: Perf ormed at: BN Performed By: #### A NCAP ####[facility] Fduxelmkxn66[address] [place] [address]Dr. Shahbaz Rogel Anti-PR3 Antibodies 5.0 units Critically high 0.0-0.9 [facility] Comment on above: Result Comment: Perf ormed at: BN Performed By: #### A NCAP ####[facility] Rlvoxweuxx[address] [place] [address]Dr. Shahbaz Rogel Atypical pANCA <1:20 Normal Neg:<1:20 [facility] Comment on above: Result Comment: The atypical pANCA pattern has been observed in a significantpercentage of patients with ulcerative colitis, primary sclerosingcholangitis and autoimmune hepatitis.Performed at: CB Performed By: #### A NCAP ####[facility] Jiyyqitjqu26[address] [place] [address]Dr. Shahbaz Rogel Cytoplasmic (C-ANCA) <1:20 Normal Neg:<1:20 Comment on above: Result Comment: Perf ormed at: CB Performed By: #### A NCAP ####[facility] Iwyqhipcyh[address] [place] [address]Dr. Lilajarrod Rogel Perinuclear (P-ANCA) 1:80 Critically high Neg:<1:20 [facility] Comment on above: Result Comment: The presence of positive fluorescence exhibiting P-ANCA or C-ANCApatterns alone is not specific for the diagnosis of Ada'sGranulomatosis (WG) or microscopic polyangiitis. Decisions abouttreatment should not be based solely on ANCA IFA results. TheInternational ANCA Group Consensus recommends follow up testing ofpositive sera with both IN-3 and MPO-ANCA enzyme immunoassays. Asmany as 5% serum samples are positive only by EIA.Ref. AM J Clin Pathol 1999;111:507-513.Performed at: CB Performed By: #### A NCAP ####[facility] Jsdbomygxh26[address] [place] [address]Dr. Shahbaz Rogel ANTIGLOMERULAR BASEMENT MEMB ANTOINE Cervantes 06-24-2022 Anti-GBM Antibodies <0.2 Normal 0.0-0.9 [facility] Comment on above: Performed By: #### A GBM ####[facility] Odmoaiwuyu[address] [place], [place] [address]Dr. Shahbaz Juan F SHAHANA EIA W/REFLEX 5 BIOMARKER Son 06-23-2022 SHAHANA Direct Negative Normal Negative [facility] Comment on above: Performed By: #### A NARF ####[facility] Wptvyhtvxe[address] [place], [place] [address]Dr. Shahbaz Juan F ANTISCLERODERMA ABon 022 Antiscleroderma-70 Antibodies <0.2 Normal 0.0-0.9 [facility] Comment on above: Performed By: #### A NSCLER ####[facility] Rgeermzgck[address] [place], [place] [address]Dr. Shahbaz Juan F RHEUMATOID FACTORon 06-23-20 22 RA Latex Turbid. <10.0 Normal <14.0 [facility] Comment on above: Performed By: #### R F ####[facility] V[address]ubtwkklg[address] [place], [place] [address]Dr. Shahbaz Rogel CBC AUTO DIFFon 06-22-2022 BASO # 0.0 103/ul Normal 0.0-0.1 Comment on above: Performed By: #### C BC ####[facility] Xoxtfrpiws[address] [place] [address]Dr. Shahbaz Rogel Basophils/100 WBC (Bld) 0.5 % Normal 0.2-2.0 [facility] Comment on above: Performed By: #### C BC ####[facility] Znlvagacxk[address] [place], [place] [address]Dr. Shahbaz Rogel EO # 0.1 103/ul Normal 0.0-0.7 [facility] Comment on above: Performed By: #### C BC ####[facility] Xbplldmgvw[address] [place], [place] [address]Dr. Shahbaz Rogel Eosinophils/100 WBC (Bld) 3.4 % Normal 0.9-7.0 [facility] Comment on above: Performed By: #### C BC ####[facility] Ftktzxqbhu2[address] [place] [address]Dr. Shahbaz Rogel Erythrocyte distribution width (RBC) [Ratio] 13.2 % Normal 11.0-15.0 Comment on above: Performed By: #### C BC ####[facility] Jufmkpetex[address] [place], [place] [address]Dr. Shahbaz Rogel Hematocrit (Bld) [Volume fraction] 45.6 % Normal 36.0-48.0 Comment on above: Performed By: #### C BC ####[facility] Udygftxexm[address] [place], [place] [address]Dr. Shahbaz Rogel Hemoglobin (Bld) [Mass/Vol] 14.7 g/dL Normal 12.0-16.0 Comment on above: Performed By: #### C BC ####[facility] Xeoxnydptt[address] [place], [place] [address]Dr. Shahbaz Rogel IG # 0.01 10e3/ul Normal 0.00-0.03 Comment on above: Performed By: #### C BC ####[facility] Cakzhpldah[address] [place], [place] [address]Dr. Shahbaz Rogel IG % 0.3 % Normal 0.0-0.5 Comment on above: Performed By: #### C BC ####[facility] Addlippfdz[address] [place], [place] [address]Dr. Shahbaz Rogel LYMPH # 1.0 103/ul Critically low 1.2-3.8 [facility] Comment on above: Performed By: #### C BC ####[facility] Ieeqnoigvt[address] [place], [place] [address]Dr. Shahbaz Rogel Lymphocytes/100 WBC (Bld) 25.7 % Normal 20.5-60.0 [facility] Comment on above: Performed By: #### C BC ####[facility] Ftnftplprz[address] [place], [place] [address]Dr. Shahbaz Rogel MANUAL DIFF REQ NO Normal [facility] Comment on above: Performed By: #### C BC ####[facility] Ehxhpdeisq4[address] [place] [id number]. Shahbaz Juan F MCH (RBC) [Entitic mass] 28.1 pg Normal 26.7-34.0 [facility] Comment on above: Performed By: #### C BC ####[facility] Kpsndaiwqo[address] [place] [address]Dr. Shahbaz Juan F MCHC (RBC) [Mass/Vol] 32.2 g/dL Normal 29.9-35.2 [facility] Comment on above: Performed By: #### C BC ####[facility] [address]hl[address] [place] [address]Dr. Lilajarrod Rgoel MCV (RBC) [Entitic vol] 87.2 fL Normal 81.0-99.0 [facility] Comment on above: Performed By: #### C BC ####[facility] Csqoevbnlu[address] [place], [place] [address]Dr. Shahbaz Rogel MONO # 0.2 103/ul Critically low 0.3-0.8 [facility] Comment on above: Performed By: #### C BC ####[facility] Iabvmaqjja[address] [place], [place] [address]Dr. Shahbaz Rogel Monocytes/100 WBC (Bld) 6.0 % Normal 1.7-12.0 [facility] Comment on above: Performed By: #### C BC ####[facility] Eleerctwjq4920[address] [place], [place] [address]Dr. Shahbaz Rogel NEUT # 2.5 103/ul Normal 1.4-6.5 [facility] Comment on above: Performed By: #### C BC ####[facility] Vzncmncaux155[address] [place], [place] [address]Dr. Shahbaz Rogel Neutrophils/100 WBC (Bld) 64.1 % Normal 43.0-75.0 [facility] Comment on above: Performed By: #### C BC ####[facility] Nmactqdrru77[address] [place], [place] [address]Dr. Shahbaz Rogel Platelet mean volume (Bld) [Entitic vol] 9.4 fL Critically low 9.5-13.5 [facility] Comment on above: Performed By: #### C BC ####[facility] [address]od[address]qh[address] [place] [address]Dr. Shahbaz Juan F PLT 212 103/ul Normal 150-450 [facility] Comment on above: Performed By: #### C BC ####[facility] [address]hlpveibo[address] [place] [id number]. Shahbaz Rogel RBC 5.23 106/ul Normal 4.20-5.40 [facility] Comment on above: Performed By: #### C BC ####[facility] Xstvcksixt6[address] [place] [address]Dr. Shahbaz Juan F WBC 3.9 103/ul Critically low 4.0-11.0 [facility] Comment on above: Performed By: #### C BC ####[facility] Dssktgbiyu[address] [place] [address]Dr. Shahbaz Rogel PROF 14(COMP METB)on 022 Albumin [Mass/Vol] 4.1 g/dL Normal 3.4-5.0 Comment on above: Performed By: #### C MP ####[facility] Pdqolodcbz[address] [place] [address]Dr. Shahbaz Rogel Albumin/Globulin [Mass ratio] 1.1 {ratio} Normal Comment on above: Performed By: #### C MP ####[facility] Naiwdenfvj[address] [place] [address]Dr. Shahbaz Rogel ALP [Catalytic activity/Vol] 133 U/L Critically high 46-116 [facility] Comment on above: Performed By: #### C MP ####[facility] Hwekhltuxu36[address] [place] [address]Dr. Shahbaz Rogel ALT [Catalytic activity/Vol] 29 U/L Normal 14-59 [facility] Comment on above: Performed By: #### C MP ####[facility] Slbfuxjlrt[address]367 [place] [address]Dr. Shahbaz Rogel Anion gap [Moles/Vol] 10.9 mmol/L Normal Th [facility] Comment on above: Performed By: #### C MP ####[facility] Uooqkujlmd5[address] [place] [address]Dr. Shahbaz Rogel AST [Catalytic activity/Vol] 23 U/L Normal 15-37 [facility] Comment on above: Performed By: #### C MP ####[facility] Oepuzsozqu35[address] [place] [address]Dr. Shahbaz Rogel Bilirubin [Mass/Vol] 0.3 mg/dL Normal 0.2-1.0 [facility] Comment on above: Performed By: #### C MP ####[facility] Zchyzncaxn4273 [place] [address]Dr. Shahbaz Rogel Calcium [Mass/Vol] 9.1 mg/dL Normal 8.5-10.1 [facility] Comment on above: Performed By: #### C MP ####[facility] Acrxfooowe23[address] [place], [place] [id number]. Shahbaz Rogel Chloride [Moles/Vol] 103 mmol/L Normal 98-107 [facility] Comment on above: Performed By: #### C MP ####[facility] Mnztcbikvf7005 [place] [address]Dr. Shahbaz Rogel CO2 [Moles/Vol] 30.8 mmol/L Normal 21.0-32.0 [facility] Comment on above: Performed By: #### C MP ####[facility] Rfgvprmldq5499 [place] [address]Dr. Shahbaz Rogel Creatinine [Mass/Vol] 1.02 mg/dL Normal 0.55-1.02 [facility] Comment on above: Performed By: #### C MP ####[facility] Ddcshqmacu7354 [place] [address]Dr. Shahbaz Juan F EGFR-AF ITALIAN >60 Normal >=60 [facility] Comment on above: Performed By: #### C MP ####[facility] Truuphgcgh9[address] [place], [place] [address]Dr. Lilajarrod Juan F EGFR-NON AF ITALIAN 56 mL/min/1.73m2 Critically low >=60 [facility] Comment on above: Performed By: #### C MP ####[facility] Rxxrjydtfc2526 [place] [address]Dr. Shahbaz Rogel Globulin (S) [Mass/Vol] 3.7 g/dL Normal [facility] Comment on above: Performed By: #### C MP ####[facility] Ccmweudgip[address] [place] [address]Dr. Shahbaz Rogel Glucose [Mass/Vol] 80 mg/dL Normal 74-106 [facility] Comment on above: Performed By: #### C MP ####[facility] Etzqwiifbz38[address] [place] [address]Dr. Shahbaz Rogel Potassium [Moles/Vol] 3.7 mmol/L Normal 3.5-5.1 [facility] Comment on above: Performed By: #### C MP ####[facility] Xzzlvudook5270 [place] [address]Dr. Shahbaz Rogel Protein [Mass/Vol] 7.8 g/dL Normal 6.4-8.2 [facility] Comment on above: Performed By: #### C MP ####[facility] Gbxnibgkjy[address] [place], [place] [address]Dr. Shahbaz Rogel Sodium [Moles/Vol] 141 mmol/L Normal 136-145 [facility] Comment on above: Performed By: #### C MP ####[facility] Eshiaeiqgx620[address] [place], [place] [address]Dr. Shahbaz Rogel Urea nitrogen [Mass/Vol] 10.0 mg/dL Normal 7.0-18.0 [facility] Comment on above: Performed By: #### C MP ####[facility] Dwvcifnjwq7751 [place] [address]Dr. Shahbaz Rogel Urea nitrogen/Creatinine [Mass ratio] 9.8 mg/mg Normal [facility] Comment on above: Performed By: #### C MP ####[facility] Tojlvnuocv532[address] [place], [place] [address]Dr. Shahbaz Rogel SED RATE [facility] 2021 SED RATE 17 mm/hr Normal <=30 [facility] Comment on above: Performed By: #### S EDR ####[facility] Xvkuymfhwq1412[address] [place], [place] [address]Dr. Shahbaz Rogel CT CHEST HI RESOLUTIONon CT CHEST HI RESOLUTION Normal Th e [facility] XR ANKLE RT MIN 3 VIEWSon XR ANKLE RT MIN 3 VIEWS Normal [facility] CT CHEST WO CONon 03-03-2022 CT CHEST WO CON Normal [facility] CT CSPINE WO CONon CT CSPINE WO CON Normal [facility] XR CHEST 2 Von 03-03-2022 XR CHEST 2 V Normal [facility] XR STERNUM MIN 2 VIEWSon XR STERNUM MIN 2 VIEWS Normal e [facility] CT HEAD WO CONon 03-02-2022 CT HEAD WO CON Normal [facility] CBC AUTO DIFFon 01-21-2022 BASO # 0.0 103/ul Normal 0.0-0.1 [facility] Comment on above: Performed By: #### C BC ####[facility] Bshrvtswvh[address] [place], [place] [address]Dr. Shahbaz Rogel Basophils/100 WBC (Bld) 0.0 % Critically low 0.2-2.0 [facility] Comment on above: Performed By: #### C BC ####[facility] Tvfcvjnutn330[address] [place], [place] [address]DrChen Rogel EO # 0.0 103/ul Normal 0.0-0.7 [facility] Comment on above: Performed By: #### C BC ####[facility] Uwhnfbhxyu978[address] [place], [place] [address]DrChen Rogel Eosinophils/100 WBC (Bld) 0.0 % Critically low 0.9-7.0 [facility] Comment on above: Performed By: #### C BC ####[facility] Kwcddlztnx375[address] [place], [place] [address]DrChen Rogel Erythrocyte distribution width (RBC) [Ratio] 14.2 % Normal 11.0-15.0 [facility] Comment on above: Performed By: #### C BC ####[facility] Wgqfphszpt146[address] [place], [place] [address]DrChen Rogel Hematocrit (Bld) [Volume fraction] 38.9 % Normal 36.0-48.0 Comment on above: Performed By: #### C BC ####[facility] Azrwhgvstb232[address] [place] [address]Dr. Shahbaz Rogel Hemoglobin (Bld) [Mass/Vol] 11.8 g/dL Critically low 12.0-16.0 [facility] Comment on above: Performed By: #### C BC ####[facility] Rmjymfkysb916[address] [place], [place] [address]Dr. Shahbaz Rogel IG # 0.03 10e3/ul Normal 0.00-0.03 Comment on above: Performed By: #### C BC ####[facility] Wsbyzphprb39[address] [place], [place] [address]Dr. Shahbaz Rogel IG % 0.4 % Normal 0.0-0.5 Comment on above: Performed By: #### C BC ####[facility] Wbhndebsxr299[address] [place], [place] [address]DrChen Rogel LYMPH # 0.8 103/ul Critically low 1.2-3.8 Comment on above: Performed By: #### C BC ####[facility] Pvuvkqzbph4750[address] [place], [place] [address]DrChen Lilajarrod Rogel Lymphocytes/100 WBC (Bld) 10.3 % Critically low 20.5-60.0 Comment on above: Performed By: #### C BC ####[facility] Yncctyvdrs120[address] [place], [place] [address]DrChen Rogel MANUAL DIFF REQ NO Normal [facility] Comment on above: Performed By: #### C BC ####[facility] Rydxzfaqta40[address] [place], [place] [address]Dr. Shahbaz Rogel MCH (RBC) [Entitic mass] 27.1 pg Normal 26.7-34.0 [facility] Comment on above: Performed By: #### C BC ####[facility] Mvqrlutyjl6038[address] [place], [place] [address]Dr. Shahbaz Rogel MCHC (RBC) [Mass/Vol] 30.3 g/dL Normal 29.9-35.2 [facility] Comment on above: Performed By: #### C BC ####[facility] Hkynmxsold74[address] [place], [place] [address]DrChen Rogel MCV (RBC) [Entitic vol] 89.2 fL Normal 81.0-99.0 [facility] Comment on above: Performed By: #### C BC ####[facility] Emrtuqqrst6068[address] [place], [place] [address]DrChen Rogel MONO # 0.4 103/ul Normal 0.3-0.8 [facility] Comment on above: Performed By: #### C BC ####[facility] Lxeacprcyi754[address] [place], [place] [address]DrChen Rogel Monocytes/100 WBC (Bld) 4.7 % Normal 1.7-12.0 [facility] Comment on above: Performed By: #### C BC ####[facility] Mrbvaiowta5636[address] [place], [place] [address]DrChen Rogel NEUT # 6.6 103/ul Critically high 1.4-6.5 [facility] Comment on above: Performed By: #### C BC ####[facility] Yoewwomlso76[address] [place], [place] [address]DrChen Rogel Neutrophils/100 WBC (Bld) 84.6 % Critically high 43.0-75.0 [facility] Comment on above: Performed By: #### C BC ####[facility] Vypispofdf700[address] [place], [place] [address]DrChen Rogel Platelet mean volume (Bld) [Entitic vol] 10.0 fL Normal 9.5-13.5 [facility] Comment on above: Performed By: #### C BC ####[facility] Etsdtoprro726[address] [place], [place] [address]DrChen Rogel PLT 165 103/ul Normal 150-450 [facility] Comment on above: Performed By: #### C BC ####[facility] Iylrijdllh174[address] [place], [place] [address]DrChen Rogel RBC 4.36 106/ul Normal 4.20-5.40 [facility] Comment on above: Performed By: #### C BC ####[facility] Cfydvvuavl9680[address] [place], [place] [address]Dr. Shahbaz Juan F WBC 7.8 103/ul Normal 4.0-11.0 Comment on above: Performed By: #### C BC ####[facility] Fyxsabtzna935[address] [place], [place] [address]Dr. Shahbaz Rogel ER URINE PROFILEon 2 Bilirubin Ql (U) Negative Normal NEGATIVE [facility] Comment on above: Performed By: #### E RUR ####[facility] Tlgpmkyykc737[address] [place], [place] [address]Dr. Shahbaz Rogel Clarity (U) CLEAR Normal CLEAR [facility] Comment on above: Performed By: #### E RUR ####[facility] Mtyxtbjrib909[address] [place], [place] [address]Dr. Shahbaz Rogel Color (U) LT. YELLOW Normal YELLOW [facility] Comment on above: Performed By: #### E RUR ####[facility] Nauqbifoyr311[address] [place], [place] [address]Dr. Shahbaz Rogel ERUAHD A micrscopic examina tion will be performed if indicated. Normal [facility] Comment on above: Performed By: #### E RUR ####[facility] Helyqzzphs335[address] [place], [place] [address]Dr. Shahbaz Rogel Glucose Ql (U) Negative Normal NEGATIVE [facility] Comment on above: Performed By: #### E RUR ####[facility] Soebguhrfs02[address] [place], [place] [address]Dr. Shahbaz Rogel Hemoglobin Ql (U) Negative Normal NEGATIVE [facility] Comment on above: Performed By: #### E RUR ####[facility] Toilpatzle6922[address] [place], [place] [address]Dr. Shahbaz Rogel Ketones Ql (U) Negative Normal NEGATIVE [facility] Comment on above: Performed By: #### E RUR ####[facility] Vqxgzszyks9[address] [place], [place] [address]Dr. Shahbaz Rogel LEUKOCYTES Negative Normal NEGATIVE Comment on above: Performed By: #### E RUR ####[facility] Svms[address]rtsfl[address] [place] [address]Dr. Shahbaz Rogel Nitrite Ql (U) Negative Normal NEGATIVE Comment on above: Performed By: #### E RUR ####[facility] Jehpulmjnx6338 [place] [address]Dr. Shahbaz Rogel pH (U) 6.0 [pH] Normal 5-9 Comment on above: Performed By: #### E RUR ####[facility] Yjhdjnuotr[address] [place], [place] [address]Dr. Shahbaz Rogel SPEC GRAVITY 1.020 Normal 1.005-<=1. 025 Comment on above: Performed By: #### E RUR ####[facility] Cpgbpzwczq714[address] [place], [place] [address]Dr. Shahbaz Juan F UA PROTEIN Negative Normal NEGATIVE/ TRACE [facility] Comment on above: Performed By: #### E RUR ####[facility] Nvobglvrwa017[address] [place], [place] [address]Dr. Shahbaz Rogel UR MICRO IND NOT INDICATED Normal Comment on above: Performed By: #### E RUR ####[facility] Yatmbfhhbf662[address] [place], [place] [address]Dr. Shahbaz Juan F Urobilinogen Qn (U) 0.2 {Melida'U}/dL Normal 0.2 - 1. 0 Comment on above: Performed By: #### E RUR ####[facility] Rftzuamfoj5437[address] [place], [place] [address]Dr. Shahbaz Juan F POINT OF CARE GLUCOSEon 01-01 Glucose [Mass/Vol] 151 mg/dL Critically high 74-106 [facility] Comment on above: Performed By: #### P OCGLUC ####[facility] Dqkvmjohgs349[address] [place], [place] [address]Dr. Lilajarrod Juan F Glucose [Mass/Vol] 248 mg/dL Critically high 74-106 [facility] Comment on above: Performed By: #### P OCGLUC ####[facility] Cktkuoqqir020[address] [place] [address]Dr. Shahbaz Rogel PROF 14(COMP METB)on 022 Albumin [Mass/Vol] 2.8 g/dL Critically low 3.4-5.0 [facility] Comment on above: Performed By: #### C MP ####[facility] Mqdynerdru0822 [place] [address]Dr. Shahbaz Rogel Albumin/Globulin [Mass ratio] 0.9 {ratio} Normal Comment on above: Performed By: #### C MP ####[facility] Yatgbfvbtk2750[address] [place], [place] [address]Dr. Shahbaz Rogel ALP [Catalytic activity/Vol] 90 U/L Normal 46-116 Comment on above: Performed By: #### C MP ####[facility] Vsywqkxlwg999[address] [place], [place] [address]Dr. Shahbaz Rogel ALT [Catalytic activity/Vol] 20 U/L Normal 14-59 Comment on above: Performed By: #### C MP ####[facility] Qngsyxednu9995[address] [place], [place] [address]Dr. Shahbaz Rogel Anion gap [Moles/Vol] 8.9 mmol/L Normal Comment on above: Performed By: #### C MP ####[facility] Fhmepjmqbs84399[address] [place], [place] [address]Dr. Shahbaz Rogel AST [Catalytic activity/Vol] 14 U/L Critically low 15-37 Comment on above: Performed By: #### C MP ####[facility] Dwovzbqiot7868[address] [place], [place] [address]Dr. Shahbaz Rogel Bilirubin [Mass/Vol] 0.1 mg/dL Critically low 0.2-1.3 Comment on above: Performed By: #### C MP ####[facility] Hgdlvdplxu518[address] [place], [place] [address]Dr. Shahbaz Rogel Calcium [Mass/Vol] 8.2 mg/dL Critically low 8.5-10.1 Th [facility] Comment on above: Performed By: #### C MP ####[facility] Xawoliupjr9194 [place] [address]Dr. Shahbaz Rogel Chloride [Moles/Vol] 110 mmol/L Critically high 98-107 Comment on above: Performed By: #### C MP ####[facility] Smotpujozt1378 [place] [address]Dr. Shahbaz Rogel CO2 [Moles/Vol] 28.0 mmol/L Normal 22.0-30.0 Comment on above: Performed By: #### C MP ####[facility] Iwvtjyagee367[address] [place], [place] [address]Dr. Shahbaz Rogel Creatinine [Mass/Vol] 0.78 mg/dL Normal 0.52-1.04 Comment on above: Performed By: #### C MP ####[facility] Kyoenfuvlm774[address] [place], [place] [address]Dr. Shahbaz Rogel EGFR-AF ITALIAN >60 Normal >=60 Comment on above: Performed By: #### C MP ####[facility] Jexrysxhat[address] [place] [address]Dr. Shahbaz Rogel EGFR-NON AF ITALIAN >60 Normal >=60 Comment on above: Performed By: #### C MP ####[facility] Pzxdnhawne22[address] [place] [address]Dr. Shahbaz Rogel Globulin (S) [Mass/Vol] 3.1 g/dL Normal Comment on above: Performed By: #### C MP ####[facility] Wvlthdeeox1447 [place] [address]Dr. Shahbaz Rogel Glucose [Mass/Vol] 121 mg/dL Critically high 74-106 [facility] Comment on above: Performed By: #### C MP ####[facility] Psnhcypota0203 [place] [address]Dr. Shahbaz Rogel Potassium [Moles/Vol] 3.9 mmol/L Normal 3.4-5.0 Comment on above: Performed By: #### C MP ####[facility] Rfnkhtbtfg1858 [place] [address]Dr. Shahbaz Rogel Protein [Mass/Vol] 5.9 g/dL Critically low 6.1-8.2 Th [facility] Comment on above: Performed By: #### C MP ####[facility] Pjkbxuwiyl8192 [place] [address]Dr. Shahbaz Rogel Sodium [Moles/Vol] 143 mmol/L Normal 137-145 [facility] Comment on above: Performed By: #### C MP ####[facility] Wmyhhtgnhz16[address] [place], [place] [address]Dr. Shahbaz Juan F Urea nitrogen [Mass/Vol] 26.0 mg/dL Critically high 7.0-18.0 Comment on above: Performed By: #### C MP ####[facility] Ejybrolhnh549[address] [place], [place] [address]Dr. Shahbaz Rogel Urea nitrogen/Creatinine [Mass ratio] 33.3 mg/mg Normal Comment on above: Performed By: #### C MP ####[facility] Mavdckocgy00[address] [place], [place] [address]Dr. Shahbaz Juan F HEDDK-3-UYCHUIGUVLFsy 2021 Bdxtp-4-Zyrchirnggv, Serum 154 mg/dL Normal 101-187 Comment on above: Performed By: #### A LPHA-1 ####[facility] Qlqswrgpyo605[address] [place], [place] [address]Dr. Shahbaz Juan F CBC AUTO DIFFon 01-20-2022 BASO # 0.0 103/ul Normal 0.0-0.1 Comment on above: Performed By: #### C BC ####[facility] Sxtczempzk789[address] [place], [place] [address]Dr. Shahbaz Juan F Basophils/100 WBC (Bld) 0.0 % Critically low 0.2-2.0 Comment on above: Performed By: #### C BC ####[facility] Qkgxbxigds997[address] [place], [place] [address]Dr. Shahbaz Rogel EO # 0.0 103/ul Normal 0.0-0.7 [facility] Comment on above: Performed By: #### C BC ####[facility] Gvwfskemms4470[address] [place], [place] [address]Dr. Shahbaz Rogel Eosinophils/100 WBC (Bld) 0.0 % Critically low 0.9-7.0 Comment on above: Performed By: #### C BC ####[facility] Klrusvatdl4216[address] [place], [place] [address]Dr. Shahbaz Rogel Erythrocyte distribution width (RBC) [Ratio] 13.7 % Normal 11.0-15.0 [facility] Comment on above: Performed By: #### C BC ####[facility] Slotvvpvbo767[address] [place], [place] [address]Dr. Shahbaz Rogel Hematocrit (Bld) [Volume fraction] 41.2 % Normal 36.0-48.0 Comment on above: Performed By: #### C BC ####[facility] Qlefdlpdfu218[address] [place], [place] [address]Dr. Shahbaz Rogel Hemoglobin (Bld) [Mass/Vol] 12.8 g/dL Normal 12.0-16.0 [facility] Comment on above: Performed By: #### C BC ####[facility] Yybpgzoigj697[address] [place], [place] [address]Dr. Shahbaz Rogel IG # 0.10 10e3/ul Critically high 0.00-0.03 Comment on above: Performed By: #### C BC ####[facility] Gbylgvsrkw1927[address] [place], [place] [address]Dr. Shahbaz Rogel IG % 0.5 % Normal 0.0-0.5 [facility] Comment on above: Performed By: #### C BC ####[facility] Vknmtmteum9[address] [place], [place] [address]DrChen Rogel LYMPH # 0.7 103/ul Critically low 1.2-3.8 [facility] Comment on above: Performed By: #### C BC ####[facility] Lguydtytje069[address] [place], [place] [address]Dr. Shahbaz Rogel Lymphocytes/100 WBC (Bld) 6.2 % Critically low 20.5-60.0 [facility] Comment on above: Result Comment: dif. not rqd. same as 01/18/22 Performed By: #### C BC ####[facility] Lsxfdlplyg25[address] [place] [address]Dr. Shahbaz Rogel MANUAL DIFF REQ NO Normal [facility] Comment on above: Performed By: #### C BC ####[facility] Mlcasubama409[address] [place], [place] [address]Dr. Shahbaz Rogel MCH (RBC) [Entitic mass] 27.2 pg Normal 26.7-34.0 [facility] Comment on above: Performed By: #### C BC ####[facility] Dzkpscbpuo535[address] [place], [place] [address]Dr. Shahbaz Rogel MCHC (RBC) [Mass/Vol] 31.1 g/dL Normal 29.9-35.2 [facility] Comment on above: Performed By: #### C BC ####[facility] Uvkqikmmwu399[address] [place], [place] [address]Dr. Shahbaz Rogel MCV (RBC) [Entitic vol] 87.5 fL Normal 81.0-99.0 [facility] Comment on above: Performed By: #### C BC ####[facility] Pgzeophigs387[address] [place], [place] [address]Dr. Shahbaz Rogel MONO # 0.2 103/ul Critically low 0.3-0.8 [facility] Comment on above: Performed By: #### C BC ####[facility] Xvauvqcqun222[address] [place], [place] [address]Dr. Shahbaz Rogel Monocytes/100 WBC (Bld) 1.7 % Normal 1.7-12.0 [facility] Comment on above: Performed By: #### C BC ####[facility] Bfnegmurhq2101[address] [place], [place] [address]Dr. Shahbaz Rogel NEUT # 9.8 103/ul Critically high 1.4-6.5 [facility] Comment on above: Performed By: #### C BC ####[facility] Cdcypqidsq[address] [place] [address]Dr. Shahbaz Rogel Neutrophils/100 WBC (Bld) 91.6 % Critically high 43.0-75.0 Comment on above: Performed By: #### C BC ####[facility] Qyffkxhzdo8269 [place] [address]Dr. Shahbaz Rogel Platelet mean volume (Bld) [Entitic vol] 10.0 fL Normal 9.5-13.5 Comment on above: Performed By: #### C BC ####[facility] Xzwbyeauac48[address] [place], [place] [address]Dr. Shahbaz Rogel PLT 198 103/ul Normal 150-450 [facility] Comment on above: Performed By: #### C BC ####[facility] Pmoumhoxgv[address] [place], [place] [address]Dr. Shahbaz Rogel RBC 4.71 106/ul Normal 4.20-5.40 [facility] Comment on above: Performed By: #### C BC ####[facility] Ecmtwprlrb[address] [place], [place] [address]Dr. Shahbaz Rogel WBC 10.7 103/ul Normal 4.0-11.0 Comment on above: Performed By: #### C BC ####[facility] Byaxoicpvs[address] [place], [place] [address]Dr. Shahbaz Rogel POINT OF CARE GLUCOSEon 04-2 Glucose [Mass/Vol] 157 mg/dL Critically high 74-106 [facility] Comment on above: Performed By: #### P OCGLUC ####[facility] Yirduwoebf9[address] [place], [place] [address]Dr. Shahbaz Rogel Glucose [Mass/Vol] 225 mg/dL Critically high 74-106 [facility] Comment on above: Performed By: #### P OCGLUC ####[facility] Ouwkkjrzjz[address] [place], [place] [address]Dr. Shahbaz Rogel Glucose [Mass/Vol] 185 mg/dL Critically high 74-106 [facility] Comment on above: Performed By: #### P OCGLUC ####[facility] [address]otjc[address] [place], [place] [id number]. Shahbaz Rogel Glucose [Mass/Vol] 134 mg/dL Critically high 74-106 [facility] Comment on above: Performed By: #### P OCGLUC ####[facility] [address] [place] [address]Dr. Shahbaz Rogel PROF 14(COMP METB)on 022 Albumin [Mass/Vol] 3.0 g/dL Critically low 3.4-5.0 [facility] Comment on above: Performed By: #### C MP ####[facility] [address] [place] [address]Dr. Shahbaz Rogel Albumin/Globulin [Mass ratio] 0.9 {ratio} Normal Comment on above: Performed By: #### C MP ####[facility] Lssjvpdzov[address] [place], [place] [address]Dr. Shahbaz Rogel ALP [Catalytic activity/Vol] 81 U/L Normal 46-116 Comment on above: Performed By: #### C MP ####[facility] Kydzkfjctb9[address] [place], [place] [address]Dr. Shahbaz Juan F ALT [Catalytic activity/Vol] 14 U/L Normal 14-59 Comment on above: Performed By: #### C MP ####[facility] Vphqewcedg[address] [place], [place] [address]Dr. Shahbaz Juan F Anion gap [Moles/Vol] 13.1 mmol/L Normal [facility] Comment on above: Performed By: #### C MP ####[facility] Ljtriaxlpl166[address] [place], [place] [address]Dr. Shahbaz Juan F AST [Catalytic activity/Vol] 20 U/L Normal 15-37 Comment on above: Performed By: #### C MP ####[facility] Btptqrzrgg4670[address] [place], [place] [address]Dr. Lilajarrod Juan F Bilirubin [Mass/Vol] 0.3 mg/dL Normal 0.2-1.3 Comment on above: Performed By: #### C MP ####[facility] [address]rlv[address] [place], [place] [address]Dr. Lilajarrod Rogel Calcium [Mass/Vol] 8.5 mg/dL Normal 8.5-10.1 [facility] Comment on above: Performed By: #### C MP ####[facility] [address]vfw[address] [place] [address]Dr. Shahbaz Rogel Chloride [Moles/Vol] 107 mmol/L Normal 98-107 [facility] Comment on above: Performed By: #### C MP ####[facility] Igesfyixni026[address] [place], [place] [address]Dr. Shahbaz Rogel CO2 [Moles/Vol] 24.0 mmol/L Normal 22.0-30.0 [facility] Comment on above: Performed By: #### C MP ####[facility] Tbfwwcggkj3465[address] [place], [place] [address]Dr. Shahbaz Rogel Creatinine [Mass/Vol] 1.00 mg/dL Normal 0.52-1.04 [facility] Comment on above: Performed By: #### C MP ####[facility] Szxtfuylmv8040[address] [place], [place] [address]Dr. Lilajarrod Juan F EGFR-AF ITALIAN >60 Normal >=60 Comment on above: Performed By: #### C MP ####[facility] Dqhhpdylwn[address] [place], [place] [address]Dr. Lilajarrod Juan F EGFR-NON AF ITALIAN 57 mL/min/1.73m2 Critically low >=60 [facility] Comment on above: Performed By: #### C MP ####[facility] Ciukzsdtfy1648[address] [place], [place] [address]Dr. Shahbaz Rogle Globulin (S) [Mass/Vol] 3.4 g/dL Normal [facility] Comment on above: Performed By: #### C MP ####[facility] Znqhdojiek9232[address] [place], [place] [address]Dr. Shahbaz Rogel Glucose [Mass/Vol] 153 mg/dL Critically high 74-106 [facility] Comment on above: Performed By: #### C MP ####[facility] Skhferlntl9[address] [place], [place] [address]Dr. Shahbaz Rogel Potassium [Moles/Vol] 4.1 mmol/L Normal 3.4-5.0 [facility] Comment on above: Performed By: #### C MP ####[facility] Hhrurrafwl6717[address] [place], [place] [address]Dr. Shahbaz Rogel Protein [Mass/Vol] 6.4 g/dL Normal 6.1-8.2 [facility] Comment on above: Performed By: #### C MP ####[facility] Bmlzfvtxlm9524[address] [place], [place] [address]Dr. Shahbaz Rogel Sodium [Moles/Vol] 140 mmol/L Normal 137-145 [facility] Comment on above: Performed By: #### C MP ####[facility] Rveebcvfoz625[address] [place], [place] [address]Dr. Shahbaz Rogel Urea nitrogen [Mass/Vol] 26.0 mg/dL Critically high 7.0-18.0 [facility] Comment on above: Performed By: #### C MP ####[facility] Pfbcvfsrth355[address] [place], [place] [address]Dr. Shahbaz Rogel Urea nitrogen/Creatinine [Mass ratio] 26.5 mg/mg Normal [facility] Comment on above: Performed By: #### C MP ####[facility] Lfczjzecbw[address] [place], [place] [address]Dr. Shahbaz Rogel BNPon 01-19-2022 Natriuretic peptide B (Bld) [Mass/Vol] 117.0 pg/mL Normal <=900.0 [facility] Comment on above: Performed By: #### B SALON ASSISTANT, CMP ####[facility] Qjpavxkddf3932[address] [place], [place] [address]Dr. Shahbaz Rogel CBC AUTO DIFFon 01-19-2022 BASO # 0.0 103/ul Normal 0.0-0.1 [facility] Comment on above: Performed By: #### C BC ####[facility] Hzpddisnep994[address] [place], [place] [address]Dr. Shahbaz Rogel Basophils/100 WBC (Bld) 0.0 % Critically low 0.2-2.0 [facility] Comment on above: Performed By: #### C BC ####[facility] [address]jcisqtrit39[address] [place] [address]Dr. Shahbaz Rogel EO # 0.0 103/ul Normal 0.0-0.7 [facility] Comment on above: Performed By: #### C BC ####[facility] Wwccvafrwh5[address] [place] [address]Dr. Shahbaz Rogel Eosinophils/100 WBC (Bld) 0.0 % Critically low 0.9-7.0 [facility] Comment on above: Performed By: #### C BC ####[facility] Wetvbmhlns1848[address] [place], [place] [address]Dr. Shahbaz Rogel Erythrocyte distribution width (RBC) [Ratio] 13.4 % Normal 11.0-15.0 [facility] Comment on above: Performed By: #### C BC ####[facility] Tflecvjjhr832[address] [place], [place] [address]Dr. Shahbaz Rogel Hematocrit (Bld) [Volume fraction] 46.3 % Normal 36.0-48.0 [facility] Comment on above: Performed By: #### C BC ####[facility] Kjvavgsjbc270[address] [place], [place] [address]Dr. Shahbaz Rogel Hemoglobin (Bld) [Mass/Vol] 14.3 g/dL Normal 12.0-16.0 [facility] Comment on above: Performed By: #### C BC ####[facility] Qhbevctnan9510[address] [place], [place] [address]Dr. Shahbaz Rogel IG # 0.00 10e3/ul Normal 0.00-0.03 [facility] Comment on above: Performed By: #### C BC ####[facility] Boqfqmvzbc485[address] [place], [place] [address]Dr. Shahbaz Rogel IG % 0.0 % Normal 0.0-0.5 [facility] Comment on above: Performed By: #### C BC ####[facility] Hwwbhlbcub6965[address] [place], [place] [address]Dr. Shahbaz Rogel LYMPH # 0.6 103/ul Critically low 1.2-3.8 [facility] Comment on above: Performed By: #### C BC ####[facility] Ohntmasmfg6[address] [place] [address]Dr. Shahbaz Rogel Lymphocytes/100 WBC (Bld) 14.2 % Critically low 20.5-60.0 [facility] Comment on above: Performed By: #### C BC ####[facility] Wiyrjsebff3982 [place] [address]Dr. Lilajarrod Rogel MANUAL DIFF REQ NO Normal [facility] Comment on above: Performed By: #### C BC ####[facility] Nrwssjswkj3563 [place] [address]Dr. Shahbaz Juan F MCH (RBC) [Entitic mass] 27.7 pg Normal 26.7-34.0 [facility] Comment on above: Performed By: #### C BC ####[facility] Azvdwvbvuo222[address] [place], [place] [address]Dr. Shahbaz Juan F MCHC (RBC) [Mass/Vol] 30.9 g/dL Normal 29.9-35.2 [facility] Comment on above: Performed By: #### C BC ####[facility] Dlexwbrhvy876[address] [place], [place] [address]Dr. Shahbaz Juan F MCV (RBC) [Entitic vol] 89.6 fL Normal 81.0-99.0 [facility] Comment on above: Performed By: #### C BC ####[facility] P[address]xxqdxt[address] [place] [address]Dr. Shahbaz Rogel MONO # 0.0 103/ul Critically low 0.3-0.8 [facility] Comment on above: Performed By: #### C BC ####[facility] Fbahjjhxaw155[address] [place], [place] [address]Dr. Lilajarrod Rogel Monocytes/100 WBC (Bld) 1.0 % Critically low 1.7-12.0 [facility] Comment on above: Performed By: #### C BC ####[facility] [address]wn[address]zcbta[address] [place], [place] [address]Dr. Shahbaz Rogel NEUT # 3.5 103/ul Normal 1.4-6.5 [facility] Comment on above: Performed By: #### C BC ####[facility] Tlzhzzlwpp0554 [place] [address]Dr. Shahbaz Rogel Neutrophils/100 WBC (Bld) 84.8 % Critically high 43.0-75.0 Comment on above: Performed By: #### C BC ####[facility] Enmhfkyzbk[address] [place] [address]Dr. Shahbaz Rogel Platelet mean volume (Bld) [Entitic vol] 9.8 fL Normal 9.5-13.5 Comment on above: Performed By: #### C BC ####[facility] [address]heti[address] [place] [address]Dr. Shahbaz Rogel PLT 185 103/ul Normal 150-450 Comment on above: Performed By: #### C BC ####[facility] Yyaeffpjmj51[address] [place], [place] [address]Dr. Shahbaz Rogel RBC 5.17 106/ul Normal 4.20-5.40 [facility] Comment on above: Performed By: #### C BC ####[facility] Sahuxlkkem[address] [place], [place] [address]Dr. Shahbaz Rogel WBC 4.2 103/ul Normal 4.0-11.0 Comment on above: Performed By: #### C BC ####[facility] Ldbcbkzujt808[address] [place], [place] [address]Dr. Shahbaz Rogel LACTATE/LACTIC ACIDon 2021 Lactate [Moles/Vol] 1.7 mmol/L Normal 0.7-2.0 Comment on above: Performed By: #### L ACT ####[facility] Iefobygqbb304[address] [place], [place] [address]Dr. Shahbaz Rogel POINT OF CARE GLUCOSEon 01-01 Glucose [Mass/Vol] 173 mg/dL Critically high 74-106 [facility] Comment on above: Performed By: #### P OCGLUC ####[facility] Yxnsskuryn317[address] [place], [place] [address]Dr. Shahbaz Rogel Glucose [Mass/Vol] 181 mg/dL Critically high 74-106 [facility] Comment on above: Performed By: #### P OCGLUC ####[facility] [address]hwqdr[address] [place] [address]Dr. Shahbaz Rogel Glucose [Mass/Vol] 154 mg/dL Critically high 74-106 [facility] Comment on above: Performed By: #### P OCGLUC ####[facility] Alcrtjspqu8354 [place] [address]Dr. Shahbaz Rogel PROF 14(COMP METB)on 022 Albumin [Mass/Vol] 3.5 g/dL Normal 3.4-5.0 Comment on above: Performed By: #### B SALON ASSISTANT, CMP ####[facility] Kfcrpnghtj0047[address] [place], [place] [address]Dr. Shahbaz Rogel Albumin/Globulin [Mass ratio] 0.9 {ratio} Normal Comment on above: Performed By: #### B SALON ASSISTANT, CMP ####[facility] Dzncstjwpl2975[address] [place], [place] [address]Dr. Shahbaz Rogel ALP [Catalytic activity/Vol] 107 U/L Normal 46-116 Comment on above: Performed By: #### B SALON ASSISTANT, CMP ####[facility] Qbqhzumntq[address] [place], [place] [address]Dr. Shahbaz Rogel ALT [Catalytic activity/Vol] 18 U/L Normal 14-59 Comment on above: Performed By: #### B SALON ASSISTANT, CMP ####[facility] Ocbxgrpdfh[address] [place] [address]Dr. Shahbaz Rogel Anion gap [Moles/Vol] 14.1 mmol/L Normal [facility] Comment on above: Performed By: #### B SALON ASSISTANT, CMP ####[facility] Fisfuofyrf522[address] [place], [place] [address]Dr. Shahbaz Rogel AST [Catalytic activity/Vol] 19 U/L Normal 15-37 Comment on above: Performed By: #### B SALON ASSISTANT, CMP ####[facility] Pcwnsepgaa2817[address] [place], [place] [address]Dr. Shahbaz Rogel Bilirubin [Mass/Vol] 0.5 mg/dL Normal 0.2-1.3 [facility] Comment on above: Performed By: #### B SALON ASSISTANT, CMP ####[facility] Fplwbcukaj265[address] [place], [place] [address]Dr. Lilajarrod Juan F Calcium [Mass/Vol] 8.5 mg/dL Normal 8.5-10.1 [facility] Comment on above: Performed By: #### B SALON ASSISTANT, CMP ####[facility] Bctalojhbi916[address] [place], [place] [address]Dr. Shahbaz Rogel Chloride [Moles/Vol] 103 mmol/L Normal 98-107 [facility] Comment on above: Performed By: #### B SALON ASSISTANT, CMP ####[facility] Vcqqowdomj2845[address] [place], [place] [address]Dr. Shahbaz Rogel CO2 [Moles/Vol] 25.4 mmol/L Normal 22.0-30.0 [facility] Comment on above: Performed By: #### B SALON ASSISTANT, CMP ####[facility] Qubgvhccpu255[address] [place], [place] [address]Dr. Shahbaz Rogel Creatinine [Mass/Vol] 1.48 mg/dL Critically high 0.52-1.04 [facility] Comment on above: Performed By: #### B SALON ASSISTANT, CMP ####[facility] Swiutzxpzh2745[address] [place], [place] [address]Dr. Shahbaz Rogel EGFR-AF ITALIAN 44 mL/min/1.73m2 Critically low >=60 [facility] Comment on above: Performed By: #### B SALON ASSISTANT, CMP ####[facility] Lgjzgkehqt0734[address] [place], [place] [address]Dr. Shahbaz Rogel EGFR-NON AF ITALIAN 36 mL/min/1.73m2 Critically low >=60 [facility] Comment on above: Performed By: #### B SALON ASSISTANT, CMP ####[facility] Hnsruzwkxu[address] [place], [place] [address]Dr. Shahbaz Rogel Globulin (S) [Mass/Vol] 3.7 g/dL Normal [facility] Comment on above: Performed By: #### B SALON ASSISTANT, CMP ####[facility] Elsjcbecgz6424[address] [place], [place] [address]Dr. Shahbaz Rogel Glucose [Mass/Vol] 203 mg/dL Critically high 74-106 [facility] Comment on above: Performed By: #### B SALON ASSISTANT, CMP ####[facility] Jpzmlkwpeq60[address] [place] [address]Dr. Shahbaz Rogel Potassium [Moles/Vol] 3.5 mmol/L Normal 3.4-5.0 Comment on above: Performed By: #### B SALON ASSISTANT, CMP ####[facility] Fwuhqtriue[address] [place], [place] [address]Dr. Shahbaz Rogel Protein [Mass/Vol] 7.2 g/dL Normal 6.1-8.2 Comment on above: Performed By: #### B SALON ASSISTANT, CMP ####[facility] Dlrbejhddb3937[address] [place], [place] [address]Dr. Shahbaz Rogel Sodium [Moles/Vol] 139 mmol/L Normal 137-145 Comment on above: Performed By: #### B SALON ASSISTANT, CMP ####[facility] Tptrxpdakp178[address] [place], [place] [address]Dr. Shahbaz Rogel Urea nitrogen [Mass/Vol] 17.0 mg/dL Normal 7.0-18.0 [facility] Comment on above: Performed By: #### B SALON ASSISTANT, CMP ####[facility] Plvlaxsclj213[address] [place], [place] [address]Dr. Shahbaz Rogel Urea nitrogen/Creatinine [Mass ratio] 11.5 mg/mg Normal Comment on above: Performed By: #### B SALON ASSISTANT, CMP ####[facility] Qydhpcewau5310[address] [place], [place] [address]Dr. Shahbaz Rogel BNPon 01-18-2022 Natriuretic peptide B (Bld) [Mass/Vol] 55.0 pg/mL Normal <=900.0 [facility] Comment on above: Performed By: #### C MP, BNP, HSTROPN ####[facility] [address]zbhlobfai[address] [place] [address]Dr. Shahbaz Rogel CBC W MANUAL DIFFon 01-19-20 22 ATYPICAL LYMPH # 0.12 103/ul Normal Comment on above: Performed By: #### C CAIN ####[facility] Rdfuxnwlbw3134 [place] [address]Dr. Shahbaz Rogel ATYPICAL LYMPH % 2 % Normal Comment on above: Performed By: #### C CAIN ####[facility] Zpqvcipudb0293 [place] [address]Dr. Yilan Rogel BAND # 0.0 103/ul Normal 0.0-0.3 [facility] Comment on above: Performed By: #### C CAIN ####[facility] Hxljbnccan6419 [place] [address]Dr. Yilan Rogel BAND % 0 % Normal 0-5 [facility] Comment on above: Performed By: #### C CAIN ####[facility] Qvpltljdkd[address] [place] [address]Dr. Shahbaz Rogel BASOM # 0.00 103/ul Normal 0.00-0.10 [facility] Comment on above: Performed By: #### C CAIN ####[facility] Avesnusxln[address] [place], [place] [address]Dr. Shahbaz Rogel BASOM % 0.0 % Critically low 0.2-2.0 [facility] Comment on above: Performed By: #### C CAIN ####[facility] Rudtpaoafa[address] [place] [address]Dr. Yilan Rogel BLAST # Normal [facility] Comment on above: Performed By: #### C CAIN ####[facility] Bsualztaqr[address] [place] [address]Dr. Yilan Rogel BLAST % Normal [facility] Comment on above: Performed By: #### C CAIN ####[facility] Hwvuiooctj[address] [place], [place] [address]Dr. Lilalan Rogel CORRECTED WBC Normal 4.0-11.0 [facility] Comment on above: Performed By: #### C CAIN ####[facility] Xgijladkeo[address] [place], [place] [address]Dr. Yilan Rogel EOS # 0.25 103/ul Normal 0.00-0.70 [facility] Comment on above: Performed By: #### C CAIN ####[facility] Flqnbaityl1218 [place], [place] [address]Eu. Shahbaz Rogel EOS% 4.0 % Normal 0.9-7.0 [facility] Comment on above: Performed By: #### C CAIN ####[facility] Qvskpjvbfo1852 [place], [place] [address]Wf. Shahbaz Rogel HCT 46.8 % Normal 36.0-48.0 [facility] Comment on above: Performed By: #### C CAIN ####[facility] Dmpvhacjaa2592 [place], [place] [address]Da. Shahbaz Rogel HGB 14.9 g/dl Normal 12.0-16.0 [facility] Comment on above: Performed By: #### C CAIN ####[facility] Vdoaszwmpa0505 [place] [address]Dr. Shahbaz Rogel LYMPHM # 0.68 103/ul Critically low 1.20-3.80 [facility] Comment on above: Performed By: #### C CAIN ####[facility] Bmyvhseocf2744 [place] [address]Dr. Shahbaz Rogel LYMPHM% 11.0 % Critically low 20.5-60.0 [facility] Comment on above: Performed By: #### C CAIN ####[facility] Xwchqqaasr2726 [place], [place] [address]Dq. Shahbaz Rogel MCH 27.6 pg Normal 26.7-34.0 [facility] Comment on above: Performed By: #### C CAIN ####[facility] Bdjyfqvupw9925 [place], [place] [address]Wx. Shahbaz Rogel MCHC 31.8 g/dl Normal 29.9-35.2 [facility] Comment on above: Performed By: #### C CAIN ####[facility] Brswoeywno9244 [place], [place] [address]Xv. Shahbaz Rogel MCV 86.8 fL Normal 81.0-99.0 [facility] Comment on above: Performed By: #### Cheri BARLOW ####[facility] Aolsneikxu5424 [place] [address]Dr. Shahbaz Rogel METAMYELOCYTE # Normal Comment on above: Performed By: #### C CAIN ####[facility] Lppbsoyhss5563 [place] [address]Dr. Shahbaz Rogel METAMYELOCYTE % Normal [facility] Comment on above: Performed By: #### C CAIN ####[facility] Olykmpqjug6140 [place] [address]Dr. Shahbaz Rogel MONOM# 0.19 103/ul Critically low 0.30-0.80 Comment on above: Performed By: #### C CAIN ####[facility] Hniqmivxap2537 [place] [address]Dr. Shahbaz Rogel MONOM% 3.0 % Normal 1.7-12.0 Comment on above: Performed By: #### C CAIN ####[facility] Z[address]trlwizg[address] [place], [place] [address]Dr. Shahbaz Juan F MPV 9.6 fL Normal 9.5-13.5 Comment on above: Performed By: #### C CAIN ####[facility] Tfwczxabwm[address] [place], [place] [address]Dr. Shahbaz Rogel MYELOCYTE # Normal [facility] Comment on above: Performed By: #### C CAIN ####[facility] Azkcwkewak1651 [place] [address]Dr. Shahbaz Juan F MYELOCYTE % Normal [facility] Comment on above: Performed By: #### C CAIN ####[facility] Ecoyeqwepn6983 [place] [address]Dr. Shahbaz Juan F NRBC Normal [facility] Comment on above: Performed By: #### C CAIN ####[facility] Jyarhakrji3584 [place] [address]Dr. Lilajarrod Juan F PLT 203 103/ul Normal 150-450 [facility] Comment on above: Performed By: #### C CAIN ####[facility] Bzasmnyvjj9615 [place] [address]Dr. Shahbaz Rogel RBC 5.39 106/ul Normal 4.20-5.40 Comment on above: Performed By: #### Cheri BARLOW ####[facility] Kbhupulkqm2750 [place] [address]Dr. Shahbaz Rogel RDW 13.7 % Normal 11.0-15.0 Comment on above: Performed By: #### Cheri BARLOW ####[facility] Qiakrevrql5098 [place] [address]Dr. Shahbaz Rogel SEG # 4.96 103/ul Normal 1.40-6.50 Comment on above: Performed By: #### Cheri BARLOW ####[facility] Tyomoczniz9861 [place] [address]Dr. Shahbaz Rogel SEG % 80.0 % Critically high 43.0-75.0 Comment on above: Performed By: #### Cheri BARLOW ####[facility] Fgbcoqixlh5718 [place] [address]Dr. Shahbaz Rogel WBC 6.2 103/ul Normal 4.0-11.0 Comment on above: Performed By: #### Cheri BARLOW ####[facility] Scrlqpqjjt[address] [place], [place] [address]DrChen Rogel CULTURE BLOODon 01-18-2022 Microscopic examination of blood, culture Culture Observations: No growth at 5 days. Normal Comment on above: Performed By: #### B LDCX2 ####[facility] Aahqqvniyl[address] [place], [place] [address]Dr. Shahbaz Rogel Microscopic examination of blood, culture Culture Observations: No growth at 5 days Normal [facility] Comment on above: Performed By: #### B LDCX1 ####[facility] Rfvmyihfdu235[address] [place], [place] [address]Dr. Shahbaz Rogel Covid-19 PCR (CVDTB)on 12-31 SARS-CoV-2 (COVID-19) RNA PAVAN+probe Ql (Unsp spec) Not detected Normal NOT DETECTED [facility] Comment on above: Result Comment: This test is not yet approved or cleared by the [place] FDA. When there are no FDA-approved or cleared tests available, and other criteria are met, FDA can make tests available under an emergency access mechanism called an Emergency Use Authorization (EUA). The EUA for this test is supported by the [place] of Health and Human Service's (HHS's) declaration [...] with SARS-CoV-2. Performed By: #### C VDTBH ####[facility] Jcxybkoqrp44[address] [place] [address]Dr. Shahbaz Rogel D-DIMERon 01-18-2022 D-DIMER 0.29 mg/L FEU Normal 0.19-0.50 Comment on above: Performed By: #### D DIM ####[facility] Plfalqoxio[address] [place] [address]Dr. Shahbaz Rogel D-DIMER COMMENTS SEE BELOW Normal [facility] Comment on above: Result Comment: Incr eases [...] generalized hospitalization. Performed By: #### D DIM ####[facility] [address]uyaf[address]vsl[address] [place] [address]Dr. Shahbaz Rogel INFLUENZA A AND B AGon 01-18 INFLUANEGH SEE BELOW Normal [facility] Comment on above: Result Comment: Nega tive for Flu A protein angiten. Infection due to Flu A cannot be ruled out. Flu A angiten in the sample may be below the detection limit of the test. Performed By: #### I NFLUAB ####[facility] [address]zmgwqxp[address] [place], [place] [address]Dr. Shahbaz Rogel INFLUBNEGH SEE BELOW Normal Comment on above: Result Comment: Nega tive for Flu B protein antigen. Infection due to Flu B cannot be ruled out. Flu B antigen in the sample may be below the detection limit of the test. Performed By: #### I NFLUAB ####[facility] Hggugabfrw[address] [place], [place] [address]Dr. Shahbaz Rogel INFLUENZA A AG Negative Normal NEGATIVE SEE COMMENT [facility] Comment on above: Performed By: #### I NFLUAB ####[facility] Uublbhcott[address] [place], [place] [address]Dr. Shahbaz Rogel INFLUENZA B AG Negative Normal NEGATIVE SEE COMMENT [facility] Comment on above: Performed By: #### I NFLUAB ####[facility] Iysjhorntr[address] [place], [place] [address]Dr. Shahbaz Rogel INTERNAL CONTROLS Within Normal Limits Normal Wi thin Normal Limits [facility] Comment on above: Performed By: #### I NFLUAB ####[facility] Qvilbxepao[address] [place], [place] [address]Dr. Shahbaz Rogel LACTATE/LACTIC ACIDon 2021 Lactate [Moles/Vol] 1.0 mmol/L Normal 0.7-2.0 [facility] Comment on above: Performed By: #### L ACT ####[facility] [address]vziccnxe[address] [place], [place] [address]Dr. Shahbaz Rogel PROF 14(COMP METB)on 022 Albumin [Mass/Vol] 3.8 g/dL Normal 3.4-5.0 [facility] Comment on above: Performed By: #### C MP, BNP, HSTROPN ####[facility] Tgcopurxre[address] [place], [place] [address]Dr. Shahbaz Rogel Albumin/Globulin [Mass ratio] 1.0 {ratio} Normal [facility] Comment on above: Performed By: #### C MP, BNP, HSTROPN ####[facility] [address] [place] [address]Dr. Shahbaz Rogel ALP [Catalytic activity/Vol] 116 U/L Normal 46-116 [facility] Comment on above: Performed By: #### C MP, BNP, HSTROPN ####[facility] [address] [place] [address]Dr. Shahbaz Rogel ALT [Catalytic activity/Vol] 16 U/L Normal 14-59 [facility] Comment on above: Performed By: #### C MP, BNP, HSTROPN ####[facility] [address]spwp[address] [place] [address]Dr. Shahbaz Rogel Anion gap [Moles/Vol] 9.4 mmol/L Normal Comment on above: Performed By: #### C MP, BNP, HSTROPN ####[facility] Mfse[address] [place], [place] [address]Dr. Shahbaz Rogel AST [Catalytic activity/Vol] 19 U/L Normal 15-37 Comment on above: Performed By: #### C MP, BNP, HSTROPN ####[facility] [address] [place], [place] [address]Dr. Shahbaz Rogel Bilirubin [Mass/Vol] 0.5 mg/dL Normal 0.2-1.3 [facility] Comment on above: Performed By: #### C MP, BNP, HSTROPN ####[facility] Qknbahx[address] [place], [place] [address]Dr. Shabhaz Rogel Calcium [Mass/Vol] 8.9 mg/dL Normal 8.5-10.1 [facility] Comment on above: Performed By: #### C MP, BNP, HSTROPN ####[facility] Giefl[address] [place], [place] [address]Dr. Shahbaz Rogel Chloride [Moles/Vol] 104 mmol/L Normal 98-107 [facility] Comment on above: Performed By: #### C MP, BNP, HSTROPN ####[facility] [address] [place] [address]Dr. Shahbaz Rogel CO2 [Moles/Vol] 27.2 mmol/L Normal 22.0-30.0 [facility] Comment on above: Performed By: #### C MP, BNP, HSTROPN ####[facility] [address] [place] [address]Dr. Shahbaz Rogel Creatinine [Mass/Vol] 0.99 mg/dL Normal 0.52-1.04 [facility] Comment on above: Performed By: #### C MP, BNP, HSTROPN ####[facility] [address] [place], [place] [address]Dr. Shahbaz Rogel EGFR-AF ITALIAN >60 Normal >=60 [facility] Comment on above: Performed By: #### C MP, BNP, HSTROPN ####[facility] Imvcftzp[address] [place], [place] [address]Dr. Shahbaz Rogel EGFR-NON AF ITALIAN 58 mL/min/1.73m2 Critically low >=60 [facility] Comment on above: Performed By: #### C MP, BNP, HSTROPN ####[facility] Rlvxwfaois[address] [place], [place] [address]Dr. Shahbaz Rogel Globulin (S) [Mass/Vol] 3.8 g/dL Normal Comment on above: Performed By: #### C MP, BNP, HSTROPN ####[facility] Kc[address]qyk[address] [place], [place] [address]Dr. Shahbaz Rogel Glucose [Mass/Vol] 104 mg/dL Normal 74-106 [facility] Comment on above: Performed By: #### C MP, BNP, HSTROPN ####[facility] R[address]kyc[address]ff[address] [place], [place] [address]Dr. Shahbaz Rogel Potassium [Moles/Vol] 3.6 mmol/L Normal 3.4-5.0 [facility] Comment on above: Performed By: #### C MP, BNP, HSTROPN ####[facility] C[address] [place], [place] [address]Dr. Shahbaz Rogel Protein [Mass/Vol] 7.6 g/dL Normal 6.1-8.2 [facility] Comment on above: Performed By: #### C MP, BNP, HSTROPN ####[facility] [address] [place] [address]Dr. Shahbaz Rogel Sodium [Moles/Vol] 137 mmol/L Normal 137-145 [facility] Comment on above: Performed By: #### C MP, BNP, HSTROPN ####[facility] [address] [place] [address]Dr. Shahbaz Rogel Urea nitrogen [Mass/Vol] 9.0 mg/dL Normal 7.0-18.0 [facility] Comment on above: Performed By: #### C MP, BNP, HSTROPN ####[facility] [address] [place] [address]Dr. Shahbaz Rogel Urea nitrogen/Creatinine [Mass ratio] 9.1 mg/mg Normal [facility] Comment on above: Performed By: #### C MP, BNP, HSTROPN ####[facility] [address] [place] [address]Dr. Shahbaz Rogel TROPONIN, HIGH SENSITIVITYon 01-18-2022 HSTROP 6.4 pg/mL Normal 4.0-35.5 [facility] Comment on above: Result Comment: CUT- OFF POINTS HAVE BEEN ESTABLISHED BASED ON THE FOURTH UNIVERSAL DEFINITIONS OF MYOCARDIALINFARCTION. THE UPPER REFERENCE LIMIT (URL) OF TROPONIN, DEFINED THE 99TH PERCENTILE OFcTnI DISTRIBUTION IN A REFERENCE POPULATION, HAS BEEN CONFIRMED THE DECISION THRESHOLDFOR TX DIAGNOSIS. Performed By: #### C MP, BNP, HSTROPN ####[facility] [address] [place] [address]Dr. Shahbaz Rogel XR CHEST 2 Von 01-18-2022 XR CHEST 2 V Normal [facility] URINALYSIS REFLEXon 04-04-20 20 Appearance (U) CLEAR Normal CLEAR [facility] Comment on above: Order Comment: No: D o not add to previous draw Performed By: #### 1 0070, 75177, 25684, 75009, 62343, 58926 #### [facility] [address] [place] [address], [place] Bilirubin [Mass/Vol] Negative Normal NEGATIVE [facility] Comment on above: Order Comment: No: D o not add to previous draw Performed By: #### 1 0070, 60356, 29073, 48819, 71126, 41530 #### [facility] [address] [place] [address], [place] BLOOD Negative Normal NEGATIVE [facility] Comment on above: Order Comment: No: D o not add to previous draw Performed By: #### 1 0070, 78832, 05621, 62550, 94908, 21332 #### [facility] [address] [place] [address], [place] Color (U) YELLOW Normal YELLOW [facility] Comment on above: Order Comment: No: D o not add to previous draw Performed By: #### 1 0070, 58164, 25120, 01110, 85919, 88096 #### [facility] [address] [place] [address], [place] Glucose [Mass/Vol] Negative Normal NEGATIVE [facility] Comment on above: Order Comment: No: D o not add to previous draw Performed By: #### 1 0070, 16119, 95929, 33640, 31912, 03818 #### [facility] [address] [place] [address], [place] KETONE Negative Normal NEGATIVE [facility] Comment on above: Order Comment: No: D o not add to previous draw Performed By: #### 1 0070, 19425, 90923, 34985, 82351, 61420 #### [facility] [address] [place] [address], [place] LEUK ELIU Negative Normal NEGATIVE [facility] Comment on above: Order Comment: No: D o not add to previous draw Performed By: #### 1 0070, 84157, 43007, 90524, 44340, 68474 #### [facility] [address] [place] [address], [facility] MICRO NOT DONE Normal [facility] Comment on above: Order Comment: No: D o not add to previous draw Result Comment: Micr oscopics not performed on urines with negative chemical reactions unless requested in original order Performed By: #### 1 0070, 70916, 60603, 99271, 09075, 12023 #### [facility] [address] [place] [address], [facility] Nitrite Ql (U) Negative Normal NEGATIVE [facility] Comment on above: Order Comment: No: D o not add to previous draw Performed By: #### 1 0070, 86513, 20120, 64905, 43121, 84090 #### [facility] [address] [place] [address], [facility] pH (Bld) 5.0 Normal 5.0-8.0 [facility] Comment on above: Order Comment: No: D o not add to previous draw Performed By: #### 1 0070, 49138, 01167, 63247, 30502, 77006 #### [facility] [address] [facility] [place] [address], [facility] Protein (U) [Mass/Vol] Negative Normal NEGATIVE Th e [facility] Comment on above: Order Comment: No: D o not add to previous draw Performed By: #### 1 0070, 89671, 45171, 96955, 69203, 29690 #### [facility] [address] [place] [address], [place] SPEC GRAV 1.012 Low 1.015-1.02 0 [facility] Comment on above: Order Comment: No: D o not add to previous draw Performed By: #### 1 0070, 31077, 95393, 62606, 45012, 66029 #### [facility] [address] [place] [address], [place] BASIC METABOLIC PANELon 07-0 -2020 Calcium [Mass/Vol] 8.4 mg/dL Low 8.6-10.3 [facility] Comment on above: Order Comment: No: D o not add to previous draw Performed By: #### 1 0070, 00834, 46072, 27747, 74214, 80462 #### [facility] [address] [place] [address], [place] Chloride [Moles/Vol] 101 mmol/L Normal 98-107 [facility] Comment on above: Order Comment: No: D o not add to previous draw Performed By: #### 1 0070, 33003, 13775, 07689, 54991, 14580 #### [facility] [address] [place] [address], [place] CO2 [Moles/Vol] 29 mmol/L Normal 21-31 [facility] Comment on above: Order Comment: No: D o not add to previous draw Performed By: #### 1 0070, 84609, 81311, 39487, 32922, 42442 #### [facility] [address] [place] [address], [place] Creatinine [Mass/Vol] 0.79 mg/dL Normal 0.60-1.20 [facility] Comment on above: Order Comment: No: D o not add to previous draw Performed By: #### 1 0070, 96000, 73213, 43991, 24070, 01568 #### [facility] [address] [place] [address], [place] GFR/1.73 sq M predicted among blacks MDRD (S/P/Bld) [Vol rate/Area] mL/min/{1.73_m2} Normal >60 [facility] Comment on above: Order Comment: No: D o not add to previous draw Performed By: #### 1 0070, 40722, 73917, 75599, 26171, 93203 #### [facility] [address] [place] [address], [place] GFR/1.73 sq M predicted among non-blacks MDRD (S/P/Bld) [Vol rate/Area] mL/min/{1.73_m2} Normal >60 [facility] Comment on above: Order Comment: No: D o not add to previous draw Performed By: #### 1 0070, 95082, 65376, 78142, 20003, 59059 #### [facility] [address] [place] [address], [facility] Glucose [Mass/Vol] 91 mg/dL Normal 70-100 [facility] Comment on above: Order Comment: No: D o not add to previous draw Performed By: #### 1 0070, 52145, 81029, 38186, 65486, 95722 #### [facility] [address] [place] [address], [facility] Potassium [Moles/Vol] 3.9 mmol/L Normal 3.5-5.1 [facility] Comment on above: Order Comment: No: D o not add to previous draw Performed By: #### 1 0070, 41613, 79646, 18649, 81110, 90689 #### [facility] [address] [place] [address], [facility] Sodium [Moles/Vol] 133 mmol/L Low 136-145 [facility] Comment on above: Order Comment: No: D o not add to previous draw Performed By: #### 1 0070, 07743, 00100, 55185, 62849, 59171 #### [facility] [address] [place] [address], [facility] Urea nitrogen [Mass/Vol] 10 mg/dL Normal 7-25 [facility] Comment on above: Order Comment: No: D o not add to previous draw Performed By: #### 1 0070, 64208, 38802, 85676, 01501, 50589 #### [facility] [address] [place] [address], [facility] CBC W/DIFFon 04-02-2020 ABS BASOPHILS 0.0 10*3/uL Normal 0.0-0.2 [facility] Comment on above: Order Comment: No: D o not add to previous draw Performed By: #### 1 0070, 22299, 42151, 21693, 45939, 90496 #### [facility] [address] [facility] [address], [facility] ABS IMM GRANS 0.0 10*3/uL Normal 0.0-0.2 [facility] Comment on above: Order Comment: No: D o not add to previous draw Performed By: #### 1 0070, 59493, 58282, 33749, 44969, 49357 #### [facility] [address] [place] [address], [facility] ABS NEUTROPHILS 4.5 10*3/uL Normal 1.6-7.6 [facility] Comment on above: Order Comment: No: D o not add to previous draw Performed By: #### 1 0070, 29901, 35860, 39361, 26336, 09283 #### [facility] [address] [place] [address], [facility] Basophils/100 WBC (Bld) 0.2 % Normal 0.0-1.0 [facility] Comment on above: Order Comment: No: D o not add to previous draw Performed By: #### 1 0070, 93053, 87389, 73200, 78427, 64791 #### [facility] [address] [facility] [address], [facility] Eosinophils (Bld) [#/Vol] 0.2 10*3/uL Normal 0.0-0.5 [facility] Comment on above: Order Comment: No: D o not add to previous draw Performed By: #### 1 0070, 97394, 02272, 85445, 95620, 67772 #### [facility] [address] [facility] [place] [address], [facility] Eosinophils/100 WBC (Bld) 3.6 % Normal 0.0-6.0 [facility] Comment on above: Order Comment: No: D o not add to previous draw Performed By: #### 1 0070, 50065, 06158, 60936, 21685, 78920 #### [facility] [address] Erythrocyte distribution width (RBC) [Ratio] 12.7 % Normal 11.5-15.0 [facility] Comment on above: Order Comment: No: D o not add to previous draw Performed By: #### 1 0070, 85542, 96430, 38271, 34343, 68366 #### [facility] [address] [facility] Hematocrit (Bld) [Volume fraction] 42.9 % Normal 36.0-45.0 [facility] Comment on above: Order Comment: No: D o not add to previous draw Performed By: #### 1 0070, 31821, 04676, 92927, 02712, 19859 #### [facility] [address] Hemoglobin (Bld) [Mass/Vol] 13.5 g/dL Normal 12.0-15.0 [facility] Comment on above: Order Comment: No: D o not add to previous draw Performed By: #### 1 0070, 58885, 75223, 10364, 82478, 83745 #### [facility] [address] [facility] [place] [address], [facility] IMMATURE GRANS 0.3 % Normal 0.0-1.0 [facility] Comment on above: Order Comment: No: D o not add to previous draw Performed By: #### 1 0070, 17052, 57449, 98968, 44649, 53400 #### [facility] [address] [place] [address], [facility] Lymphocytes (Bld) [#/Vol] 1.1 10*3/uL Low 1.2-4.0 [facility] Comment on above: Order Comment: No: D o not add to previous draw Performed By: #### 1 0070, 62484, 77430, 44306, 05197, 41715 #### [facility] [address] [place] [address], [facility] Lymphocytes/100 WBC (Bld) 18.0 % Low 20.0-45.0 [facility] Comment on above: Order Comment: No: D o not add to previous draw Performed By: #### 1 0070, 24681, 94481, 31995, 48194, 22423 #### [facility] [address] [place] [address], [facility] MCH (RBC) [Entitic mass] 27.4 pg Normal 27.0-33.0 [facility] Comment on above: Order Comment: No: D o not add to previous draw Performed By: #### 1 0070, 30331, 52795, 91812, 56976, 20247 #### [facility] [address] [facility] MCHC (RBC) [Mass/Vol] 31.5 g/dL Low 32.0-35.0 [facility] Comment on above: Order Comment: No: D o not add to previous draw Performed By: #### 1 0070, 72829, 86066, 46815, 62854, 12322 #### [facility] [address] [place] [address], [facility] MCV (RBC) [Entitic vol] 87.0 fL Normal 82.0-98.0 [facility] Comment on above: Order Comment: No: D o not add to previous draw Performed By: #### 1 0070, 81715, 82139, 44096, 92741, 34051 #### [facility] [address] [place] [address], [facility] Monocytes (Bld) [#/Vol] 0.3 10*3/uL Normal 0.1-1.0 [facility] Comment on above: Order Comment: No: D o not add to previous draw Performed By: #### 1 0070, 84852, 70966, 89403, 82379, 57992 #### [facility] [address] [place] [address], [facility] MONOS 5.5 % Normal 5.0-12.0 [facility] Comment on above: Order Comment: No: D o not add to previous draw Performed By: #### 1 0070, 92690, 66620, 79589, 87992, 52753 #### [facility] [address] [place] [address], [facility] Neutrophils/100 WBC (Bld) 72.4 % High 40.0-72.0 [facility] Comment on above: Order Comment: No: D o not add to previous draw Performed By: #### 1 0070, 85047, 84466, 66884, 58174, 69939 #### [facility] [address] Nucleated RBC/100 WBC (Bld) [Ratio] 0 % Normal 0-0 [facility] Comment on above: Order Comment: No: D o not add to previous draw Performed By: #### 1 0070, 11401, 98136, 42044, 29030, 84937 #### [facility] [address] [place] [address], [facility] PLAT CNT 264 10*3/uL Normal 150-400 [facility] Comment on above: Order Comment: No: D o not add to previous draw Performed By: #### 1 0070, 80433, 26957, 90509, 84219, 31572 #### [facility] [address] [place] [address], [facility] RBC (Bld) [#/Vol] 4.93 10*6/uL Normal 3.80-5.00 [facility] Comment on above: Order Comment: No: D o not add to previous draw Performed By: #### 1 0070, 48824, 49163, 02438, 18372, 49666 #### [facility] [address] [facility] [address] WBC (Bld) [#/Vol] 6.17 10*3/uL Normal 4.00-10.60 [facility] Comment on above: Order Comment: No: D o not add to previous draw Performed By: #### 1 0070, 11524, 65336, 79295, 57189, 15581 #### [facility] [address] [facility]. [address] MAGNESIUM BLOODon 04-02-2020 Magnesium [Mass/Vol] 2.0 mg/dL Normal 1.9-2.7 [facility] Comment on above: Order Comment: No: D o not add to previous draw Performed By: #### 1 0070, 23935, 41412, 20502, 22786, 68179 #### [facility] [address] [facility] [address] PHOSPHORUS BLOODon 0 Phosphate [Mass/Vol] 3.1 mg/dL Normal 2.5-5.0 [facility] Comment on above: Order Comment: No: D o not add to previous draw Performed By: #### 1 0070, 90523, 98640, 60297, 55300, 91722 #### [facility] [address] [facility]. [address] POC GLUCOSE LABon 04-02-2020 Glucose [Mass/Vol] 134 mg/dL High 70-100 [facility] Comment on above: Performed By: #### 1 0070, 84088, 81894, 10753, 63432, 64703 #### [facility] [address] [facility]. [address] UFH HEPARIN ASSAYon 04-02-20 20 UNFRACTIONATED HEPARIN 0.91 IU/mL Critically high 0.30-0.7 0 [facility] Comment on above: Result Comment: [place] roxaban and Apixaban will interfere with the anti Xa assay used to monitor UFH and LMWH. RESULTS CHECKED AND CALLED. ACCURATELY READ BACK BY LYNN POLANCO, RN @ 3765 Performed By: #### 1 0070, 19783, 09073, 58166, 96155, 96219 #### [facility] [address] [place] [address], [facility] ALBUMIN BLOODon 04-01-2020 Albumin [Mass/Vol] 3.0 g/dL Low 3.5-5.7 [facility] Comment on above: Performed By: #### 1 0070, 86932, 73900, 80783, 79931, 09906 #### [facility] [address] [place] [address], [facility] BASIC METABOLIC PANELon Calcium [Mass/Vol] 8.1 mg/dL Low 8.6-10.3 [facility] Comment on above: Order Comment: No: D o not add to previous draw Performed By: #### 1 0070, 48310, 84752, 19331, 52407, 79974 #### [facility] [address] [place] [address], [place] Chloride [Moles/Vol] 105 mmol/L Normal 98-107 [facility] Comment on above: Order Comment: No: D o not add to previous draw Performed By: #### 1 0070, 88828, 90139, 24470, 42392, 52102 #### [facility] [address] [place] [address], [place] CO2 [Moles/Vol] 26 mmol/L Normal 21-31 [facility] Comment on above: Order Comment: No: D o not add to previous draw Performed By: #### 1 0070, 44998, 03010, 80070, 21505, 31595 #### [facility] [address] [place] [address], [place] Creatinine [Mass/Vol] 0.65 mg/dL Normal 0.60-1.20 [facility] Comment on above: Order Comment: No: D o not add to previous draw Performed By: #### 1 0070, 34107, 62721, 31831, 34434, 50334 #### [facility] [address] [place] [address], [place] GFR/1.73 sq M predicted among blacks MDRD (S/P/Bld) [Vol rate/Area] mL/min/{1.73_m2} Normal >60 [facility] Comment on above: Order Comment: No: D o not add to previous draw Performed By: #### 1 0070, 23627, 17800, 88070, 25914, 61987 #### [facility] [address] [place] [address], [facility] GFR/1.73 sq M predicted among non-blacks MDRD (S/P/Bld) [Vol rate/Area] mL/min/{1.73_m2} Normal >60 [facility] Comment on above: Order Comment: No: D o not add to previous draw Performed By: #### 1 0070, 78034, 39849, 98955, 90888, 95630 #### [facility] [address] [place] [address], [place] Glucose [Mass/Vol] 87 mg/dL Normal 70-100 [facility] Comment on above: Order Comment: No: D o not add to previous draw Performed By: #### 1 0070, 74807, 32978, 66523, 99069, 19914 #### [facility] [address] [place] [address], [place] Potassium [Moles/Vol] 4.3 mmol/L Normal 3.5-5.1 [facility] Comment on above: Order Comment: No: D o not add to previous draw Performed By: #### 1 0070, 84091, 26761, 63748, 28421, 92029 #### [facility] [address] [place] [address], [place] Sodium [Moles/Vol] 136 mmol/L Normal 136-145 [facility] Comment on above: Order Comment: No: D o not add to previous draw Performed By: #### 1 0070, 59105, 10322, 06767, 29546, 85243 #### [facility] [address] Urea nitrogen [Mass/Vol] 8 mg/dL Normal 7-25 [facility] Comment on above: Order Comment: No: D o not add to previous draw Performed By: #### 1 0070, 63708, 79434, 16650, 10495, 68781 #### [facility] [address] CBC W/DIFFon 04-01-2020 ABS BASOPHILS 0.0 10*3/uL Normal 0.0-0.2 [facility] Comment on above: Order Comment: No: D o not add to previous draw Performed By: #### 1 0070, 93111, 22189, 95171, 79181, 24108 #### [facility] [address] ABS IMM GRANS 0.0 10*3/uL Normal 0.0-0.2 [facility] Comment on above: Order Comment: No: D o not add to previous draw Performed By: #### 1 0070, 92958, 67290, 34928, 63127, 72190 #### [facility] [address] [facility]. [address] ABS NEUTROPHILS 3.4 10*3/uL Normal 1.6-7.6 [facility] Comment on above: Order Comment: No: D o not add to previous draw Performed By: #### 1 0070, 15922, 90246, 21140, 99899, 72216 #### [facility] [address] Basophils/100 WBC (Bld) 0.2 % Normal 0.0-1.0 [facility] Comment on above: Order Comment: No: D o not add to previous draw Performed By: #### 1 0070, 95525, 39243, 61712, 15768, 54528 #### [facility] [address] [place] [address], [facility] Eosinophils (Bld) [#/Vol] 0.1 10*3/uL Normal 0.0-0.5 [facility] Comment on above: Order Comment: No: D o not add to previous draw Performed By: #### 1 0070, 51818, 61859, 38981, 94715, 60598 #### [facility] [address] [place] [address], [facility] Eosinophils/100 WBC (Bld) 2.6 % Normal 0.0-6.0 [facility] Comment on above: Order Comment: No: D o not add to previous draw Performed By: #### 1 0070, 05604, 18391, 78488, 08367, 26497 #### [facility] [address] Erythrocyte distribution width (RBC) [Ratio] 13.0 % Normal 11.5-15.0 [facility] Comment on above: Order Comment: No: D o not add to previous draw Performed By: #### 1 0070, 76696, 02925, 65137, 06541, 22660 #### [facility] [address] [place] [address], [facility] Hematocrit (Bld) [Volume fraction] 40.9 % Normal 36.0-45.0 [facility] Comment on above: Order Comment: No: D o not add to previous draw Performed By: #### 1 0070, 91664, 65016, 20919, 09318, 10831 #### [facility] [address] [place] [id number], [facility] Hemoglobin (Bld) [Mass/Vol] 12.8 g/dL Normal 12.0-15.0 [facility] Comment on above: Order Comment: No: D o not add to previous draw Performed By: #### 1 0070, 28801, 15091, 78103, 96195, 95565 #### [facility] [address] [facility] [place] [address], [facility] IMMATURE GRANS 0.6 % Normal 0.0-1.0 [facility] Comment on above: Order Comment: No: D o not add to previous draw Performed By: #### 1 0070, 85307, 01069, 96368, 60000, 97858 #### [facility] [address] [place] [address], [facility] Lymphocytes (Bld) [#/Vol] 1.2 10*3/uL Normal 1.2-4.0 [facility] Comment on above: Order Comment: No: D o not add to previous draw Performed By: #### 1 0070, 41508, 37922, 62974, 44890, 23719 #### [facility] [address] [facility] [place] [address], [facility] Lymphocytes/100 WBC (Bld) 23.7 % Normal 20.0-45.0 [facility] Comment on above: Order Comment: No: D o not add to previous draw Performed By: #### 1 0070, 53764, 14134, 58502, 40026, 98082 #### [facility] [address] [facility] [place] [address], [facility] MCH (RBC) [Entitic mass] 27.4 pg Normal 27.0-33.0 [facility] Comment on above: Order Comment: No: D o not add to previous draw Performed By: #### 1 0070, 07350, 12463, 63926, 35537, 20234 #### [facility] [address] [facility] [place] [address], [facility] MCHC (RBC) [Mass/Vol] 31.3 g/dL Low 32.0-35.0 [facility] Comment on above: Order Comment: No: D o not add to previous draw Performed By: #### 1 0070, 85146, 55669, 32868, 03928, 10638 #### [facility] [address] [facility] [place] [address], [facility] MCV (RBC) [Entitic vol] 87.6 fL Normal 82.0-98.0 [facility] Comment on above: Order Comment: No: D o not add to previous draw Performed By: #### 1 0070, 20939, 68071, 50703, 05251, 00711 #### [facility] [address] [place] [address], [facility] Monocytes (Bld) [#/Vol] 0.3 10*3/uL Normal 0.1-1.0 [facility] Comment on above: Order Comment: No: D o not add to previous draw Performed By: #### 1 0070, 08360, 40543, 01228, 88099, 53168 #### [facility] [address] MONOS 5.4 % Normal 5.0-12.0 [facility] Comment on above: Order Comment: No: D o not add to previous draw Performed By: #### 1 0070, 60722, 01969, 86982, 64204, 12156 #### [facility] [address] [place] [address], [facility] Neutrophils/100 WBC (Bld) 67.5 % Normal 40.0-72.0 [facility] Comment on above: Order Comment: No: D o not add to previous draw Performed By: #### 1 0070, 61089, 84417, 41159, 43220, 08528 #### [facility] [address] [place] [address], [facility] Nucleated RBC/100 WBC (Bld) [Ratio] 0 % Normal 0-0 [facility] Comment on above: Order Comment: No: D o not add to previous draw Performed By: #### 1 0070, 29364, 80172, 04069, 12922, 84434 #### [facility] [address] [facility] [address], [facility] PLAT CNT 237 10*3/uL Normal 150-400 [facility] Comment on above: Order Comment: No: D o not add to previous draw Performed By: #### 1 0070, 89378, 25016, 74801, 85103, 83511 #### [facility] [address] [facility] [place] [address], [facility] RBC (Bld) [#/Vol] 4.67 10*6/uL Normal 3.80-5.00 [facility] Comment on above: Order Comment: No: D o not add to previous draw Performed By: #### 1 0070, 14798, 30865, 41780, 60292, 69936 #### [facility] [address] [facility] [place] [address], [facility] WBC (Bld) [#/Vol] 4.98 10*3/uL Normal 4.00-10.60 [facility] Comment on above: Order Comment: No: D o not add to previous draw Performed By: #### 1 0070, 51390, 02751, 27523, 48681, 98295 #### [facility] [address] CHEST AND LATERALon 04-01-20 CHEST AND LATERAL [facility] Department of Radiology [address] [place] [address] [phone] Patient Name: EMIGDIO ELI : 1965 Sex: F Age: Race: White Pt. Location: [id number] Patient Status: I Ordered Date: 04/01/2020 7:00:00 [...] reports Electronically signed: Shari Salcedo. Transcribed by: [email or web address], User Resident: ANNE VEGA Electronically Signed by: SHARI SALCEDO @ 04/01/2020 10:12 AM I personally read this/these film(s) with this resident Normal [facility] Comment on above: Order Comment: No: D o not add to previous draw MAGNESIUM BLOODon 04-01-2020 Magnesium [Mass/Vol] 2.1 mg/dL Normal 1.9-2.7 [facility] Comment on above: Order Comment: No: D o not add to previous draw Performed By: #### 1 0070, 59437, 73237, 86482, 58095, 80862 #### [facility] [address] APTTon 03-31-2020 aPTT Coag (Bld) [Time] 28.3 s Normal 25.0-35.0 Th [facility] Comment on above: Order Comment: [...] THIS PURPOSE. Performed By: #### 1 0070, 17544, 82704, 18120, 71165, 45470 #### [facility] [address] [facility]. [address] BASIC METABOLIC PANELon 03-04 Calcium [Mass/Vol] 7.8 mg/dL Low 8.6-10.3 [facility] Comment on above: Order Comment: No: D o not add to previous draw Performed By: #### 1 0070, 47253, 36537, 11510, 11025, 70072 #### [facility] [address] [facility] [place] [place] [address], [facility] Chloride [Moles/Vol] 108 mmol/L High 98-107 [facility] Comment on above: Order Comment: No: D o not add to previous draw Performed By: #### 1 0070, 46851, 74503, 23463, 22237, 51463 #### [facility] [address] [facility] [place] [place] [address], [facility] CO2 [Moles/Vol] 26 mmol/L Normal 21-31 [facility] Comment on above: Order Comment: No: D o not add to previous draw Performed By: #### 1 0070, 78655, 06882, 03306, 04549, 05831 #### [facility] [address] [place] [address], [facility] Creatinine [Mass/Vol] 0.76 mg/dL Normal 0.60-1.20 [facility] Comment on above: Order Comment: No: D o not add to previous draw Performed By: #### 1 0070, 17193, 37395, 08406, 69819, 10855 #### [facility] [address] [place] [address], [place] GFR/1.73 sq M predicted among blacks MDRD (S/P/Bld) [Vol rate/Area] mL/min/{1.73_m2} Normal >60 [facility] Comment on above: Order Comment: No: D o not add to previous draw Performed By: #### 1 0070, 26432, 86876, 52554, 70321, 69813 #### [facility] [address] [place] [address], [facility] GFR/1.73 sq M predicted among non-blacks MDRD (S/P/Bld) [Vol rate/Area] mL/min/{1.73_m2} Normal >60 [facility] Comment on above: Order Comment: No: D o not add to previous draw Performed By: #### 1 0070, 75578, 56169, 11848, 59275, 50403 #### [facility] [address] [place] [address], [place] Glucose [Mass/Vol] 97 mg/dL Normal 70-100 [facility] Comment on above: Order Comment: No: D o not add to previous draw Performed By: #### 1 0070, 18483, 08262, 70831, 20687, 54876 #### [facility] [address] [place] [address], [place] Potassium [Moles/Vol] 3.2 mmol/L Low 3.5-5.1 [facility] Comment on above: Order Comment: No: D o not add to previous draw Performed By: #### 1 0070, 76240, 30415, 60204, 11734, 76645 #### [facility] [address] Sodium [Moles/Vol] 140 mmol/L Normal 136-145 [facility] Comment on above: Order Comment: No: D o not add to previous draw Performed By: #### 1 0070, 59448, 25707, 18461, 67251, 02845 #### [facility] [address] Urea nitrogen [Mass/Vol] 15 mg/dL Normal 7-25 [facility] Comment on above: Order Comment: No: D o not add to previous draw Performed By: #### 1 0070, 04812, 05233, 21935, 28163, 80770 #### [facility] [address] CBC W/DIFFon 03-31-2020 ABS BASOPHILS 0.0 10*3/uL Normal 0.0-0.2 [facility] Comment on above: Order Comment: No: D o not add to previous draw Performed By: #### 1 0070, 66497, 42867, 60689, 56164, 11574 #### [facility] [address] ABS IMM GRANS 0.0 10*3/uL Normal 0.0-0.2 [facility] Comment on above: Order Comment: No: D o not add to previous draw Performed By: #### 1 0070, 61089, 02957, 77703, 64124, 52740 #### [facility] [address] ABS NEUTROPHILS 3.2 10*3/uL Normal 1.6-7.6 [facility] Comment on above: Order Comment: No: D o not add to previous draw Performed By: #### 1 0070, 00286, 90811, 75738, 94548, 54644 #### [facility] [address] [place] [address], [facility] Basophils/100 WBC (Bld) 0.2 % Normal 0.0-1.0 [facility] Comment on above: Order Comment: No: D o not add to previous draw Performed By: #### 1 0070, 07148, 03731, 55031, 55891, 31273 #### [facility] [address] [place] [address], [facility] Eosinophils (Bld) [#/Vol] 0.0 10*3/uL Normal 0.0-0.5 [facility] Comment on above: Order Comment: No: D o not add to previous draw Performed By: #### 1 0070, 10303, 08163, 03152, 78506, 26079 #### [facility] [address] [place] [address], [facility] Eosinophils/100 WBC (Bld) 0.4 % Normal 0.0-6.0 [facility] Comment on above: Order Comment: No: D o not add to previous draw Performed By: #### 1 0070, 61857, 91047, 55510, 23824, 00875 #### [facility] [address] [place] [address], [facility] Erythrocyte distribution width (RBC) [Ratio] 13.0 % Normal 11.5-15.0 [facility] Comment on above: Order Comment: No: D o not add to previous draw Performed By: #### 1 0070, 26226, 54045, 69158, 65804, 52755 #### [facility] [address] [place] [address], [facility] Hematocrit (Bld) [Volume fraction] 34.4 % Low 36.0-45.0 [facility] Comment on above: Order Comment: No: D o not add to previous draw Performed By: #### 1 0070, 42609, 49313, 09098, 22386, 50643 #### [facility] [address] [facility] [place] [address], [facility] Hemoglobin (Bld) [Mass/Vol] 10.8 g/dL Low 12.0-15.0 [facility] Comment on above: Order Comment: No: D o not add to previous draw Performed By: #### 1 0070, 83713, 31472, 82181, 03586, 64794 #### [facility] [address] [place] [address], [facility] IMMATURE GRANS 0.4 % Normal 0.0-1.0 [facility] Comment on above: Order Comment: No: D o not add to previous draw Performed By: #### 1 0070, 92722, 46657, 76582, 82750, 33647 #### [facility] [address] Lymphocytes (Bld) [#/Vol] 1.2 10*3/uL Normal 1.2-4.0 [facility] Comment on above: Order Comment: No: D o not add to previous draw Performed By: #### 1 0070, 20111, 14017, 41175, 14941, 79280 #### [facility] [address] Lymphocytes/100 WBC (Bld) 25.7 % Normal 20.0-45.0 [facility] Comment on above: Order Comment: No: D o not add to previous draw Performed By: #### 1 0070, 11916, 51410, 22080, 06036, 31763 #### [facility] [address] [place] [address], [facility] MCH (RBC) [Entitic mass] 27.5 pg Normal 27.0-33.0 [facility] Comment on above: Order Comment: No: D o not add to previous draw Performed By: #### 1 0070, 00793, 01808, 33574, 40207, 64352 #### [facility] [address] [place] [address], [facility] MCHC (RBC) [Mass/Vol] 31.4 g/dL Low 32.0-35.0 [facility] Comment on above: Order Comment: No: D o not add to previous draw Performed By: #### 1 0070, 78780, 62145, 61201, 73316, 22583 #### [facility] [address] [place] [address], [facility] MCV (RBC) [Entitic vol] 87.5 fL Normal 82.0-98.0 [facility] Comment on above: Order Comment: No: D o not add to previous draw Performed By: #### 1 0070, 54646, 16865, 10588, 87530, 00259 #### [facility] [address] [facility] [place] [address], [facility] Monocytes (Bld) [#/Vol] 0.3 10*3/uL Normal 0.1-1.0 [facility] Comment on above: Order Comment: No: D o not add to previous draw Performed By: #### 1 0070, 60638, 36390, 60256, 99792, 75005 #### [facility] [address] [facility] MONOS 6.2 % Normal 5.0-12.0 [facility] Comment on above: Order Comment: No: D o not add to previous draw Performed By: #### 1 0070, 65512, 97434, 90965, 14968, 98369 #### [facility] [address] [facility] [place] [address], [facility] Neutrophils/100 WBC (Bld) 67.1 % Normal 40.0-72.0 [facility] Comment on above: Order Comment: No: D o not add to previous draw Performed By: #### 1 0070, 45262, 11635, 30369, 77649, 73603 #### [facility] [address] [facility] [place] [place] [address], [facility] Nucleated RBC/100 WBC (Bld) [Ratio] 0 % Normal 0-0 [facility] Comment on above: Order Comment: No: D o not add to previous draw Performed By: #### 1 0070, 08491, 72585, 18991, 45595, 42936 #### [facility] [address] [facility] [place] [place] [address], [facility] PLAT CNT 210 10*3/uL Normal 150-400 [facility] Comment on above: Order Comment: No: D o not add to previous draw Performed By: #### 1 0070, 49306, 03137, 07921, 94650, 25150 #### [facility] [address] [place] [address], [facility] RBC (Bld) [#/Vol] 3.93 10*6/uL Normal 3.80-5.00 [facility] Comment on above: Order Comment: No: D o not add to previous draw Performed By: #### 1 0070, 19662, 26870, 35794, 82738, 38033 #### [facility] [address] [facility] [address], [facility] WBC (Bld) [#/Vol] 4.71 10*3/uL Normal 4.00-10.60 [facility] Comment on above: Order Comment: No: D o not add to previous draw Performed By: #### 1 0070, 64968, 10124, 27659, 53764, 58086 #### [facility] [address] Cardiovascular Lab Reporton 03-31-2020 Cardiovascular Lab Report [facility] Patient Name: Paulie Emigdio [facility] S MR #: [id number] Department of Physician: Rebecca Weaver M.D. Medicine Service Date: 03/31/2020 Division of Birthdate: 1965 Cardiology Room #: [id number] Adult Cardiovascular Services [facility] [address] [place], [place] [address] Cardiovascular Laboratory Report INDICATIONS FOR PACEMAKER PLACEMENT: [...] silk suture. They were connected to a [employer] Edora dual-chamber pacing system. This was placed [...] Weaver M.D. Date Trans: 03/31/2020 03:35 P/mmo [id number] cc: Tony Hines M.D. Heart Failure/ Transplant Mailstop [address] [place] [address] Normal [facility] MAGNESIUM BLOODon 03-31-2020 Magnesium [Mass/Vol] 1.8 mg/dL Low 1.9-2.7 [facility] Comment on above: Order Comment: No: D o not add to previous draw Performed By: #### 1 0070, 66231, 28639, 42276, 92095, 58912 #### [facility] [address] PHOSPHORUS BLOODon 0 Phosphate [Mass/Vol] 2.7 mg/dL Normal 2.5-5.0 [facility] Comment on above: Order Comment: No: D o not add to previous draw Performed By: #### 1 0070, 02122, 91775, 88297, 30700, 86468 #### [facility] [address] PROTHROMBIN TIMEon 0 INR Coag (PPP) [Relative time] 1.11 {INR} Normal 0.91-1.16 [facility] Comment on above: Order Comment: [...] CHEST 1995;108:[id number]. Performed By: #### 1 0070, 18891, 13705, 52217, 16057, 28292 #### [facility] [address] [facility] [place] [address], [facility] PT Coag (PPP) [Time] 14.3 s Normal 12.3-14.8 [facility] Comment on above: Order Comment: No: D o not add to previous draw Result Comment: ALL RESULTS MUST BE INTERPRETED WITH RESPECT TO BLOOD DRAWING ARTIFACT OR DILUTION ERROR OF ANTICOAGULANT AT THE TIME OF SAMPLING. Performed By: #### 1 0070, 43538, 00415, 04227, 59257, 91695 #### [facility] [address] [place] [address], [facility] *SARS-CoV-2 COVID-19on 03-30 [id number] Not Detected Normal Not Detected [facility] Comment on above: Order Comment: No: D o not add to previous draw Performed By: #### 1 0070, 37550, 15991, 54588, 08994, 70130 #### [facility] [address] [place] [address], [facility] APTTon 03-30-2020 aPTT Coag (Bld) [Time] 24.9 s Low 25.0-35.0 Th [facility] Comment on above: Order Comment: [...] THIS PURPOSE. Performed By: #### 5 7307, 82591 #### [facility] [address] BASIC METABOLIC PANELon 03-03 Calcium [Mass/Vol] 8.9 mg/dL Normal 8.6-10.3 [facility] Comment on above: Order Comment: No: D o not add to previous draw Performed By: #### 1 0070, 29699, 87907, 95919, 76752, 15622 #### [facility] [address] [place] [address], [facility] Chloride [Moles/Vol] 110 mmol/L High 98-107 [facility] Comment on above: Order Comment: No: D o not add to previous draw Performed By: #### 1 0070, 29273, 50744, 93335, 89563, 71919 #### [facility] [address] [place] [address], [facility] CO2 [Moles/Vol] 26 mmol/L Normal 21-31 [facility] Comment on above: Order Comment: No: D o not add to previous draw Performed By: #### 1 0070, 47497, 66749, 74387, 47091, 68075 #### [facility] [address] [place] [address], [facility] Creatinine [Mass/Vol] 0.86 mg/dL Normal 0.60-1.20 [facility] Comment on above: Order Comment: No: D o not add to previous draw Performed By: #### 1 0070, 62879, 22907, 17001, 87437, 67465 #### [facility] [address] [place] [address], [facility] GFR/1.73 sq M predicted among blacks MDRD (S/P/Bld) [Vol rate/Area] mL/min/{1.73_m2} Normal >60 [facility] Comment on above: Order Comment: No: D o not add to previous draw Performed By: #### 1 0070, 47639, 29195, 83676, 44920, 14386 #### [facility] [address] [place] [address], [facility] GFR/1.73 sq M predicted among non-blacks MDRD (S/P/Bld) [Vol rate/Area] mL/min/{1.73_m2} Normal >60 [facility] Comment on above: Order Comment: No: D o not add to previous draw Performed By: #### 1 0070, 30816, 03824, 68532, 45768, 76607 #### [facility] [address] [place] [address], [facility] Glucose [Mass/Vol] 119 mg/dL High 70-100 [facility] Comment on above: Order Comment: No: D o not add to previous draw Performed By: #### 1 0070, 67586, 66556, 55557, 83120, 52544 #### [facility] [address] [place] [address], [place] Potassium [Moles/Vol] 3.5 mmol/L Normal 3.5-5.1 [facility] Comment on above: Order Comment: No: D o not add to previous draw Performed By: #### 1 0070, 06043, 82390, 09841, 33056, 27800 #### [facility] [address] [place] [address], [place] Sodium [Moles/Vol] 142 mmol/L Normal 136-145 [facility] Comment on above: Order Comment: No: D o not add to previous draw Performed By: #### 1 0070, 89404, [address]272, 47522, 58082, 60303 #### [facility] [address] Urea nitrogen [Mass/Vol] 13 mg/dL Normal 7-25 [facility] Comment on above: Order Comment: No: D o not add to previous draw Performed By: #### 1 0070, 72913, 24616, 65569, 88985, 45976 #### [facility] [address] CBC W/DIFFon 03-30-2020 ABS BASOPHILS 0.0 10*3/uL Normal 0.0-0.2 [facility] Comment on above: Performed By: #### 5 0103 #### [facility] [address] ABS IMM GRANS 0.0 10*3/uL Normal 0.0-0.2 [facility] Comment on above: Performed By: #### 5 102 #### [facility] [address] ABS NEUTROPHILS 5.7 10*3/uL Normal 1.6-7.6 [facility] Comment on above: Performed By: #### 5 102 #### [facility] [address] Basophils/100 WBC (Bld) 0.0 % Normal 0.0-1.0 [facility] Comment on above: Performed By: #### 5 102 #### [facility] [address] Eosinophils (Bld) [#/Vol] 0.0 10*3/uL Normal 0.0-0.5 [facility] Comment on above: Performed By: #### 5 102 #### [facility] [address] [place] [address], [facility] Eosinophils/100 WBC (Bld) 0.0 % Normal 0.0-6.0 [facility] Comment on above: Performed By: #### 5 3 #### [facility] [address] Erythrocyte distribution width (RBC) [Ratio] 12.9 % Normal 11.5-15.0 [facility] Comment on above: Performed By: #### 3 #### [facility] [address] Hematocrit (Bld) [Volume fraction] 36.1 % Normal 36.0-45.0 [facility] Comment on above: Performed By: #### 102 #### [facility] [address] Hemoglobin (Bld) [Mass/Vol] 11.5 g/dL Low 12.0-15.0 [facility] Comment on above: Performed By: #### 5 3 #### [facility] [address] IMMATURE GRANS 0.5 % Normal 0.0-1.0 [facility] Comment on above: Performed By: #### 5 3 #### [facility] [address] Lymphocytes (Bld) [#/Vol] 0.6 10*3/uL Low 1.2-4.0 [facility] Comment on above: Performed By: #### 5 3 #### [facility] [address] Lymphocytes/100 WBC (Bld) 9.3 % Low 20.0-45.0 [facility] Comment on above: Performed By: #### 5 3 #### [facility] [address] MCH (RBC) [Entitic mass] 27.4 pg Normal 27.0-33.0 [facility] Comment on above: Performed By: #### 5 0103 #### [facility] 3000 [facility]. [address] MCHC (RBC) [Mass/Vol] 31.9 g/dL Low 32.0-35.0 [facility] Comment on above: Performed By: #### 5 0103 #### [facility] [address] MCV (RBC) [Entitic vol] 86.0 fL Normal 82.0-98.0 [facility] Comment on above: Performed By: #### 5 0103 #### [facility] [address] Monocytes (Bld) [#/Vol] 0.2 10*3/uL Normal 0.1-1.0 [facility] Comment on above: Performed By: #### 5 0103 #### [facility] [address] MONOS 2.5 % Low 5.0-12.0 [facility] Comment on above: Performed By: #### 5 0103 #### [facility] [address] Neutrophils/100 WBC (Bld) 87.7 % High 40.0-72.0 [facility] Comment on above: Performed By: #### 5 0103 #### [facility] [address] Nucleated RBC/100 WBC (Bld) [Ratio] 0 % Normal 0-0 [facility] Comment on above: Performed By: #### 5 0103 #### [facility] [address] PLAT CNT 261 10*3/uL Normal 150-400 [facility] Comment on above: Performed By: #### 5 0103 #### [facility] [address] [place] [address], [facility] RBC (Bld) [#/Vol] 4.20 10*6/uL Normal 3.80-5.00 [facility] Comment on above: Performed By: #### 5 0103 #### [facility] [address] [place] [address], [facility] WBC (Bld) [#/Vol] 6.47 10*3/uL Normal 4.00-10.60 [facility] Comment on above: Performed By: #### 5 0103 #### [facility] 3000 [facility] [place] [address], [facility] FREE T4on 03-30-2020 Free T4 [Mass/Vol] 1.48 ng/dL Normal 0.71-1.85 [facility] Comment on above: Performed By: #### 1 0070, 51143, 87148, 78379, 64345, 43760 #### [facility] [address] [place] [address], [facility] MAGNESIUM BLOODon 03-30-2020 Magnesium [Mass/Vol] 2.0 mg/dL Normal 1.9-2.7 [facility] Comment on above: Order Comment: No: D o not add to previous draw Performed By: #### 1 0070, 55558, 53260, 46859, 22180, 36982 #### [facility] 3000 [facility]. [place] [id number], [facility] PHOSPHORUS BLOODon 0 Phosphate [Mass/Vol] 2.8 mg/dL Normal 2.5-5.0 [facility] Comment on above: Order Comment: No: D o not add to previous draw Performed By: #### 1 0070, 38086, 29600, 81088, 59969, 80544 #### [facility] [address] [facility]. [address] PROTHROMBIN TIMEon 0 INR Coag (PPP) [Relative time] 1.21 {INR} High 0.91-1.16 [facility] Comment on above: Order Comment: [...] CHEST 1995;108:[id number]. Performed By: #### 5 7307, 20774 #### [facility] 3000 [facility] [place] [address], [facility] PT Coag (PPP) [Time] 15.4 s High 12.3-14.8 [facility] Comment on above: Order Comment: No: D o not add to previous draw Result Comment: ALL RESULTS MUST BE INTERPRETED WITH RESPECT TO BLOOD DRAWING ARTIFACT OR DILUTION ERROR OF ANTICOAGULANT AT THE TIME OF SAMPLING. Performed By: #### 5 7307, 43172 #### [facility] 3000 [facility] [place] [address], [facility] TROPONIN-Ion 03-30-2020 Troponin I.cardiac [Mass/Vol] 0.02 ng/mL Normal 0.00-0.04 [facility] Comment on above: Order Comment: No: D o not add to previous draw Result Comment: REFE RENCE RANGES: 0.00 - 0.04 ng/ml NORMAL 0.05 - 0.50 ng/ml INDETERMINATE > 0.50 ng/ml CONSISTENT WITH AN M.I. Performed By: #### 1 0070, 78278, 85502, 38123, 53188, 70955 #### [facility] [address] Troponin I.cardiac [Mass/Vol] 0.04 ng/mL Normal 0.00-0.04 [facility] Comment on above: Order Comment: No: D o not add to previous draw Result Comment: REFE RENCE RANGES: 0.00 - 0.04 ng/ml NORMAL 0.05 - 0.50 ng/ml INDETERMINATE > 0.50 ng/ml CONSISTENT WITH AN M.I. Performed By: #### 3 5200 #### [facility] 3000 [facility] [place] [address], [facility] Troponin I.cardiac [Mass/Vol] 0.04 ng/mL Normal 0.00-0.04 [facility] Comment on above: Order Comment: No: D o not add to previous draw Result Comment: REFE RENCE RANGES: 0.00 - 0.04 ng/ml NORMAL 0.05 - 0.50 ng/ml INDETERMINATE > 0.50 ng/ml CONSISTENT WITH AN M.I. Performed By: #### 1 0070, 58448, 17889, 69429, 52729, 36532 #### [facility] 3000 [facility]. [address] TSH3 WITH REFLEX FT4on 03-30 TSH 3RD GENERATION 0.02 uIU/mL Low 0.34-5.60 [facility] Comment on above: Performed By: #### 1 0070, 49873, 09593, 26505, 77678, 54249 #### [facility] 3000 [facility]. [address] Vital Signs Date Time Vital Sign Value Performing Clinician Faci lity 06-13-2024 12:13-0400 Body height 152.3 cm Zoila Monae MD Work Phone: [facility] 06-13-2024 12:13-0400 Body mass index (BMI) [Ratio] 19.98 kg/m2 Zoila Monae MD Work Phone: [facility] 06-13-2024 12:13-0400 Body weight 46.35 kg Zoila Monae MD Work Phone: [facility] 06-13-2024 12:13-0400 Diastolic blood pressure 77 mm[Hg] Zoila Monae MD Work Phone: [facility] 06-13-2024 12:13-0400 Heart rate 74 /min Zoila Monae MD Work Phone: [facility] 06-13-2024 12:13-0400 Systolic blood pressure 107 mm[Hg] Zoila Monae MD Work Phone: [facility] 03-06-2024 13:46-0400 Body height 153.5 cm Zoila Monae MD Work Phone: [facility] 03-06-2024 13:46-0400 Body mass index (BMI) [Ratio] 19.1 kg/m2 Zoila Monae MD Work Phone: [facility] 03-06-2024 13:46-0400 Body temperature 97.2 [degF] Zoila Monae MD Work Phone: [facility] 03-06-2024 13:46-0400 Body weight 45 kg Zoila Monae MD Work Phone: [facility] 03-06-2024 13:46-0400 Diastolic blood pressure 68 mm[Hg] Zoila Monae MD Work Phone: [facility] 03-06-2024 13:46-0400 Heart rate 106 /min Zoila Monae MD Work Phone: [facility] 03-06-2024 13:46-0400 Systolic blood pressure 101 mm[Hg] Zoila Monae MD Work Phone: [facility] 08-12-2022 15:32-0500 Body temperature 98.1 [degF] MD Tony Amaya Work Phone: [facility] 08-12-2022 15:32-0500 Diastolic blood pressure 69 mm[Hg] MD Tony Amaya Work Phone: [facility] 08-12-2022 15:32-0500 Heart rate 78 /min MD Tony Amaya Work Phone: [facility] 08-12-2022 15:32-0500 Respiratory rate 16 /min MD Tony Amaya Work Phone: [facility] 08-12-2022 15:32-0500 SaO2% (BldA) [Mass fraction] 94 % MD Tony Amaya Work Phone: [facility] 08-12-2022 15:32-0500 Systolic blood pressure 129 mm[Hg] MD Tony Amaya Work Phone: [facility] 08-12-2022 11:00-0500 Inhaled oxygen flow rate 3 L/min MD Tony Amaya Work Phone: [facility] 08-11-2022 12:39-0500 Body height 152.4 cm MD Tony Amaya Work Phone: [facility] 08-11-2022 06:00-0500 Body weight 44.9 kg MD Tony Amaya Work Phone: [facility] 08-10-2022 15:03-0500 Body mass index (BMI) [Ratio] 19.1 kg/m2 MD Tony Amaya Work Phone: [facility] 08-03-2022 14:27-0400 Body weight 0 kg MD Tony Amaya Work Phone: [facility] Encounters Encounter Date Encounter Type Care Provider Facility Start: 07-10-2024 End: 07-10-2024 Suzette Mackay NP Work Phone: [facility] Start: 07-10-2024 End: 07-10-2024 Bamboo flowsheet Zulema Mackay SALON ASSISTANT Work Phone: [facility] Start: 07-10-2024 End: 07-10-2024 Office outpatient visit 15 minutes Zulema Luis Simonebill SALON ASSISTANT Work Phone: [facility] Comment on above: Closed nondisplaced fracture of right patella, unspecified fracture morphology, initial encounter (Primary Dx); Right knee pain, unspecified chronicity Start: 07-10-2024 End: 07-10-2024 ambulatory ZULEMA Smith APLBILL Not Available Start: 07-02-2024 ambulatory Alejandro Flaherty acility:[facility] Start: 06-24-2024 End: 06-24-2024 ambulatory ZULEMA Smith APLING Not Available Start: 06-13-2024 End: 06-13-2024 ambulatory SUKHDEV SAEED Facility:[facility] Start: 06-13-2024 End: 06-13-2024 Patient encounter procedure Zoila Monae MD Work Phone: Neurology [facility] Comment on above: Transient neurologic al symptoms (Primary Dx) Start: 06-11-2024 ambulatory ZOILA MONAE [facility] ty:[facility] Start: 06-11-2024 End: 06-11-2024 Subsequent hospital visit by physician Eeg [facility] Work Phone: [facility] EEG Comment on above: Memory deficit [R41. 3] Start: 06-04-2024 End: 06-04-2024 Orders Only Zoila Monae MD Work Phone: Neurology [facility] Comment on above: Memory deficit (Prim isamar Dx); Auditory hallucinations; Mentally challenged Start: 05-28-2024 End: 05-28-2024 ambulatory [facility] Start: 03-06-2024 End: 03-06-2024 ambulatory TONY AMAYA Facility:[facility] Start: 03-06-2024 End: 03-06-2024 Patient encounter procedure Zoila Monae MD Work Phone: Neurology [facility] Comment on above: Memory deficit (Prim isamar Dx); Auditory hallucinations; Mentally challenged Start: 02-20-2024 Emergency department patient visit REGAN ALDANA [facility] Start: 02-20-2024 End: 02-20-2024 Emergency department patient visit CASSANDRA ALCANTARA [facility] Start: 02-01-2024 End: 02-01-2024 ambulatory TONY AMAYA [facility] Start: 01-01-2024 Emergency department patient visit GURDEEP KIRKPATRICK [facility] Start: 01-01-2024 End: 01-05-2024 Evaluation and management of inpatient [address] [facility] Start: 10-24-2023 End: [facility]24[facility] Start: 01-03-2023 End: 01-07-2023 Evaluation and management of inpatient DR TONY AMAYA . Facility:[facility] Start: 11-01-2022 End: 11-02-[address] TONY AMAYA . Facility:[facility] Start: 09-30-2022 End: 10-01-[address] ROSALINA BAUTISTA Facility:[facility] Start: 09-02-2022 End: 09-02-2022 ambulatory MD Tony Amaya Work Phone: [place] [facility] Work Phone: Start: 09-02-2022 End: 09-02-2022 Patient encounter procedure MD Tony Amaya Work Phone: [place] [facility] Start: 08-25-2022 End: 08-25-[address] ROSALINA BAUTISTA Facility:[facility] Start: 08-10-2022 End: 08-12-2022 Admission to same day surgery center MD Tony Amaya Work Phone: [place] [facility] Start: 08-10-2022 End: 08-12-2022 ambulatory MD Tony Amaya Work Phone: [place] [facility] Work Phone: Start: 08-08-2022 End: 08-08-2022 ambulatory MD Tony Amaya Work Phone: [facility] Work Phone: Start: 08-08-2022 End: 08-08-2022 Departed Referred MD Tony Amaya Work Phone: [facility] Start: 08-05-2022 End: 08-05-2022 ambulatory MD Tony Amaya Work Phone: [facility] Work Phone: Start: 08-05-2022 End: 08-05-2022 Patient encounter procedure MD Tony Amaya Work Phone: [facility] Start: 07-30-2022 End: 07-30-[address] ROSALINA BAUTISTA Facility:[facility] Start: 07-04-2022 End: 07-06-[address] TONY AMAYA . Facility:[facility] Start: 07-04-2022 End: 07-04-[address] ALBERTO FERRO Facility:[facility] Start: 06-29-2022 Encounter for preprocedural laboratory examination [facility] . Start: 06-27-2022 End: 06-28-2022 ambulatory [facility] . Facility:[facility] Start: 06-27-2022 End: 06-28-2022 Encounter for preprocedural laboratory examination [facility] . Facility:[facility] Start: 06-22-2022 End: 06-23-2022 ambulatory [facility] . Facility:[facility] Start: 06-20-2022 End: 06-20-[address] TONY AMAYA . Facility:[facility] Start: 06-20-2022 End: 06-21-2022 ambulatory [facility] . Facility:[facility] Start: 03-03-[address] TONY [...] Start: 02-19-2027 Diabetes Screening Diabetes Screenin g [facility] Start: 08-07-2024 End: 08-07-2024 Patient encounter procedure 08/07/2024 11:00 AM EST Office Visit [facility] [address] [place] [address] Zulema Mackay, SALON ASSISTANT [address] [place] [address] [facility] Start: 07-22-2024 End: 07-22-2024 Patient encounter procedure 07/22/2024 12:30 PM EDT Office Visit [facility] [address] [place] [address] Zulema Mackay, SALON ASSISTANT [address] [place] [address] [facility] Start: 07-10-2024 End: 07-10-2024 Patient encounter procedure 07/10/2024 12:15 PM EDT Office Visit [facility] [address] [place] [address] Zulema Mackay, SALON ASSISTANT [address] [place] [address] Arrived [facility] Comment on above: Arrived Start: 06-13-2024 End: 06-13-2024 Patient encounter procedure 06/13/2024 12:30 PM EDT Office Visit Neurology [facility] [address] [place] [address] [place] [address] [place] [address] Return in about 3 months (around 06/06/2024) for with Dr. Monae. Neurology [facility] Comment on above: Return in about 3 mo nths (around 06/06/2024) for with Dr. Monae. Start: 06-11-2024 End: 06-11-2024 Patient encounter procedure 06/11/2024 9:00 AM EDT Appointment [facility] EEG [address] [address] Memory deficit [R41.3] [facility] EEG Comment on above: Memory deficit [R41. 3] Start: 06-02-2024 Covid-19 Vaccine ( season) Covid-19 Vaccine () [facility] Start: 06-02-2024 Influenza vaccination [facility] Start: 03-29-2024 End: 03-29-2024 Patient encounter procedure 03/29/2024 11:45 AM EDT Office Visit Neurology [address] [place] [address] Memory deficit [R41.3] Neurology Comment on above: Memory deficit [R41. 3] Start: 10-02-2023 Behavioral Health Screening Behavioral Health Screening [facility] Start: 06-02-2023 Covid-19 Vaccine ( season) Covid-19 Vaccine () [facility] Start: 08-12-2022 [facility] Start: 08-10-2022 Consultation [facility] Start: 08-10-2022 End: 08-10-2022 [facility] Start: 2014 Shingrix Vaccine (1 of 2) Shingrix Vaccine (1 of 2) [facility] Start: 2009 Lipid panel Lipid Screening [facility] Start: 2009 Screening for malign ant neoplasm of colon [facility] Start: 2004 Screening for malign ant neoplasm of breast Mammogram Screening [facility] Start: 1994 Screening for malign ant neoplasm of cervix HPV Testing [facility] Start: 1985 Screening for malign ant neoplasm of cervix [facility] Start: 1983 Urine microalbumin profile DTaP,Tdap,Td Vaccine (1 - Tdap) [facility] Start: 1982 Anxiety Screening Anxiety Screening [facility] Start: 1982 Depression Screening Depression Scre ening [facility] Start: 1982 Hepatitis C screening Hepatitis C Sc reening [facility] Start: 1982 HIV screening HIV Screening [facility] Acid Fast Bacilli Culture & Smear Acid Fast Bacilli Culture & Smear [facility] Anaerobic microbial culture Anaerobic Culture [facility] Bacteria identified in Urine by Culture Urine Culture [facility] Chlamydia trachomati s [Presence] in Unspecified specimen by Organism specific culture [facility] Work Phone: Chlamydia trachomati s [Presence] in Unspecified specimen by Organism specific culture [facility] EEG EEG NEUROLOGY 12:00 AM EDT [facility] End: 03-06-2025 EPIL EEG ROUTINE EPIL EEG ROUTINE NEUROLOGY Routine Memory deficit Auditory hallucinations 1 Occurrences starting 03/06/2024 until 03/06/2025 [facility] Work Phone: Comment on above: 1 Occurrences starti ng 03/06/2024 until 03/06/2025 Fungal Culture Result 1 Fungal Culture Re sult 1 [facility] Fungus identified in Unspecified specimen by Culture [facility] Work Phone: Mycobacterium sp identified in Unspecified specimen by Organism specific culture [facility] Work Phone: Mycology Culture Mycology Culture [facility] Patient referral [facility] Work Phone: [facility] Payers Date Payer Category Payer Self-pay 2017 Medicaid [id number] 1964 Unknown [id number] 2.16.8 [id number] 1964 Unknown [id number] 2.16.84 0.1.894690.3.579.2.593 1964 Unknown [id number] 2.16.84 0.1.922633.3.579.2.593 1964 Unknown [id number] 2.16.84 0.1.481822.3.579.2.593 1964 Unknown [id number] 2.16.84 0.1.318916.3.579.2.593 1964 Unknown [id number] 2.16.84 0.1.029958.3.579.2.593 1964 Unknown [id number] 2.16.84 0.1.323209.3.579.2.593 1964 Unknown [id number] 2.16.84 0.1.246839.3.579.2.593 1964 Unknown [id number] 2.16.84 0.1.378135.3.579.2.593 1964 Unknown [id number] 2.16.84 0.1.313148.3.579.2.593 1964 Unknown [id number] 2.16.84 0.1.757707.3.579.2.593 1964 Unknown [id number] 2.16.84 0.1.082670.3.579.2.593 1964 Unknown [id number] 2.16.84 0.1.739967.3.579.2.593 1964 Unknown [id number] 2.16.84 0.1.190995.3.579.2.593 1964 Unknown [id number] 2.16.84 0.1.952170.3.579.2.593 1964 Unknown [id number] 2.16.84 0.1.385035.3.579.2.1259 1964 Unknown [id number] 2.16.84 0.1.560502.3.579.2.1259 1964 Unknown [id number] 2.16.84 0.1.908509.3.579.2.1259 1959 Self-pay [id number] 1959 Unknown [id number] Unknown [id number] 2.16.8 40.1.712317.3.579.2.531 Social History Date Type Detail Facility Tobacco smoking stat us [facility] Unknown if ever smoked [facility] Work Phone: Start: 1965 Sex Assigned At Female [facility] Start: 08-10-2022 End: 06-24-2024 Tobacco smoking status VAIS Never smoked tobacco (finding) [facility] Start: 03-06-2024 Tobacco smoking status [facility] Tobacco smoking consumption unknown [facility] Start: 03-06-2024 End: 07-10-2024 History of Social function [facility] Start: 03-06-2024 End: 07-10-2024 Area Deprivation Index [facility] National Score (1-10 0), lower number is lower risk 76 [facility] Start: 1965 Sex Assigned At Not on file [facility] Start: 06-24-2024 Tobacco use and exposure Smokeless tobacco non-user [facility] Start: 06-24-2024 End: 07-10-2024 Alcoholic beverage intake Ex-drinker (finding) [facility] Start: 06-21-2024 Gender identity Identifies as female gender (finding) [facility] Start: 06-21-2024 Sexual orientation Heterosexual (finding) [facility] Medical Equipment Procedure Code Equipment Code Equipment Origin al Text Equipment Identifier Dates Thoracotomy Surgical adhesive/sealant, human-derived [id number] [facility] Start: 08-10-2022 Goals Date Patient Goal Desired Activity /State Functional Status Date Assessment Result Facility 08-12-2022 Functional status Patient at Baseline [facility] Work Phone: Mental Status Date Assessment Result Facility 08-12-2022 Cognitive function Cognitive Sta tus Patient at Baseline [facility] Work Phone: Clinical Notes 08-10-2022 to [...] y.o. female. RT Knee CT RT knee [facility] 07/05/24 3 weeks ago, Pt had tripped over a sidewalk and Fell landing on her left hand and right knee. DOI 06/19/24, she then hit her chest and rolled over onto her left shoulder hitting her shoulder. She was able to walk afterwards, was taken to [facility] ER on 06/19/24 by her partner [...] was dx with 6 months ago. [place]: XR/06/19/24/[facility] LT hand, RT knee, LT shoulder, [facility] ER 06/19/24, norco, IBU, XR [facility] [...] ct of the right knee done at [facility] on 07/05/24 reveals a non displaced [...] or polycentric), positional orthosis, rigid support, prefabricated, [id number] knee brace. Brace is locked at 0 [...] in the brace documented in this encounter [facility] 06-13-2024 History of Present illness Narrative [facility] Follow up/ Established patient visit Individuals who were included in, or assisted with the encounter were: Emigdio Eli Zoila Monae MD Chief Complaint/Issues: Emigdio Eli is a 58 year old female seen in the [facility] for: Staring spells. [...] that she can have it done in [place] but she would rather come here. She [...] which included preparing to see the patient, [id number]-[id number] patient care, completing clinical documentation, obtaining and/or reviewing separately obtained history, performing a medically appropriate examination, counseling and educating the patient/family/caregiver, ordering medications, tests, or procedures, communicating with other HCPs (not separately reported), and communicating results to the patient/family/caregiver. Zoila Monae MD documented in this encounter [facility] 06-13-2024 Note HNO ID: [id number] Author: ZOILA MONAE MD Service: ? Author Type: Physician Type: Progress Notes Filed: 06/13/2024 13:41 Note Text: [facility] Follow up/ Established patient visit Individuals who were included in, or assisted with the encounter were: Emigdio Eli Zoila Monae MD Chief Complaint/Issues: Emigdio Eli is a 58 year old female seen in the [facility] for: Staring spells. [...] that she can have it done in [place] but she would rather come here. She [...] 100 mg b (more content not included)... [facility] 06-11-2024 Note HNO ID: [id number] Author: NARCISA YUSUF MD Service: Neurology General Author Type: Physician Type: Procedures Filed: 06/13/2024 13:25 Note Text: [facility] - Electroencephalogram EMIGDIO ELI : 1965 AGE: 58 SEX: F CSN: [id number] HOSP SVC: LOCATION: ATTENDING PHYSICIAN: DATE OF [...] have been noted. Narcisa Yusuf M.D. Neurology HK:[id number] /[id number] [facility] 06-04-2024 Telephone encounter Note A new neuropsych order has been put in. Thanks Zoila Monae MD [facility] Work Phone: 06-04-2024 Miscellaneous Notes A new neuropsych order has been put in. Thanks Zoila Monae MD documented in this encounter [facility] 06-04-2024 Note HNO ID: [id number] Author: ZOILA MONAE MD Service: ? Author Type: Physician Type: Progress Notes Filed: 06/04/2024 13:22 Note Text: Neuropsychology order had when they tried to get her in. A new order has been put in and good for a year. Zoila Monae MD [facility] 06-04-2024 History of Present illness Narrative Neuropsychology order had when they tried to get her in. A new order has been put in and good for a year. Zoila Monae MD documented in this encounter [facility] 03-06-2024 History of Present illness Narrative Images from the original note were not included. [facility] New Patient Evaluation Consulting Provider: Tony Amaya [address] [facility] [address] The patient presents with a chief complaint [...] year old Rh female seen in the [facility] for: Cognitive evaluation [...] for low IQ. She worked in a [employer] shop and only worked 6 months. She [...] and no carotid or cranial bruit auscultated [place] Cognitive Assessment (MoCA) Version 1 Total Score: 17/30 Visuospatial/Executive Alternating [place] Making: Patient successfully draws the pattern without [...] fabric' (0) Word 3: Required multiple choice- 'voodoo, school, hospital' (0) Word 4: Required category [...] Abnormal ECG COPD (chronic obstructive pulmonary disease) ([facility]/HCC) Hyperlipidemia Past Surgical History: Procedure Laterality Date [...] signed: Karthikeyan Linn. Outside Data/Labs: 01/2024 at [facility]: Tox screen negative, Etoh negative, CBC is normal, CMP is normal, Folate 34, B12 148, TSH 0.01 IMPRESSION: Unremarkable intracranial CT angiogram. Unremarkable unenhanced CT of the brain. Unremarkable extracranial CT angiogram Subjective Patient-Entered Data: 03/04/24 - GENERAL NEUROLOGY SCORES I spent a total of 55 minutes on the date of the service which included preparing to see the patient, pxzn-ch-ipqz patient care, completing clinical documentation, obtaining and/or reviewing separately obtained history, performing a medically appropriate examination, counseling and educating the patient/family/caregiver, ordering medications, tests, or procedures, communicating with other HCPs (not separately reported), and communicating results to the patient/family/caregiver. Zoila Monae MD documented in this encounter [facility] 03-06-2024 Note HNO ID: [id number] Author: ZOILA MONAE MD Service: ? Author Type: Physician Type: Progress Notes Filed: 03/06/2024 15:39 Note Text: [facility] General Neurology New Patient Evaluation Consulting Provider: Tony Amaya [address] [address] The patient presents with a chief complaint [...] year old Rh female seen in the [facility] for: Cognitive evaluation [...] Version 1 Total Score: 17/30 Visuospatial/Executive Alternating [place] Making: Patient successfully draws the (more content not included)... [facility] 02-20-2024 Note Procedure ECG 12 lead Performed by: Regan Aldana NP Authorized by: Cassandra Alcantara MD ECG interpreted by ED Physician in the absence of a automotive repair technician: yes Rate: ECG rate: 79 ECG rate assessment: normal Rhythm: Rhythm: sinus rhythm and paced Pacing: Capture: Complete Type of pacing: Atrial Ectopy: Ectopy: none QRS: QRS axis: Normal QRS intervals: Normal QRS conduction: normal ST segments: ST segments: Normal T waves: T waves: normal Regan Aldana NP 02/20/24 190 [facility] 01-05-2024 Note REILLY rec'd consult for DME [...] telling her that her 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 Patient to discharge home this evening. [facility] 01-05-2024 Note Occupational Therapy Occupational Therapy Treatment Patient Name: Emigdio Eli : 1965 Today's Date: 01/05/2024 01/05/24 0852 Time Calculation Start Time 0852 Stop Time 0918 Time Calculation (min) 26 min Problem List Patient Active Problem List Diagnosis Abdominal pain Constipated Dyspepsia COPD (chronic obstructive pulmonary disease) ([facility]) CURRAN (dyspnea on exertion) Pacemaker Hyperlipidemia Dizziness Unspecified severe protein-calorie malnutrition ([facility]) Treatment: 01/05/24851 OT Last Visit OT [...] cristina-hygiene and clothing managment w/ setup from law writer Functional Standing Tolerance Time untimed Activity [...] mobility;Decreased trunk control for functional activities OT Assessment/BARREL RAISER Summary Pt would benefit from continued skilled [...] Toileting, which includes (more content not included)... [facility] 01-04-2024 Note Hospital Medicine Daily Progress Note - 01/04/2024 1:18 PM; Room: [address] [place], [place] [address] Admission: 01/01/2024 9:17 PM; Length of stay: 0 days THE HOSPITALIST TEAM PREFERS TO USE [employer] FOR COMMUNICATION 7AM-7PM. IF I DO NOT RESPOND WITHIN 15 MINUTES, PLEASE PAGE ME/CALL THROUGH THE PLANT OPERATOR HELPER. FROM 7PM-7AM, PLEASE PAGE [phone](COVR) Code Status: Full Code Barriers to Discharge: [...] 1.66 01/02/2024 Lab Results Component Value Date [id number] 148 (L) 01/03/2024 Imaging ECG 12 lead Atrial-paced rhythm Right axis deviation Pulmonary disease pattern Abnormal ECG When compared with ECG of 30-MAR-2020 12:22, Electronic atrial pacemaker has replaced Sinus rhythm Vent. rate has increased BY 26 BPM QRS duration has decreased Nonspecific T wave abn (more content not included)... [facility] 01-03-2024 Note Physical Therapy Mckenzie wright Patient [...] facilitate returning to/exceedi (more content not included)... [facility] 01-03-2024 Note Adult Nutrition Asse ssment: Name: Emigdio Eli Date: 1965 Date of Visit: 01/03/24 Admission Dx: Dizziness [R42] Nausea and vomiting, unspecified vomiting type [R11.2] Reason for assessment: high risk and MD referral HR: po intake, BMI MD Consult: underweight Information obtained from: patient, medical record, and nursing Past Medical History: Diagnosis Date Abnormal ECG COPD (chronic obstructive pulmonary disease) ([facility]) Hyperlipidemia Current Medications: buPROPion XL, 300 [...] 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 Because of these symptoms, her appetite [...] based on: actual body weight Calorie needs: 2929-5733 kcals/day based on Equation: 28-32 kcal/kg MSJ [...] loss, reduced energ (more content not included)... [facility] 01-03-2024 Note Hospital Medicine Daily Progress Note - 01/03/2024 9:20 AM; Room: 4179/4179-01 Admission: 01/01/2024 9:17 PM; Length of stay: 0 days THE HOSPITALIST TEAM PREFERS TO USE [employer] FOR COMMUNICATION 7AM-7PM. IF I DO NOT RESPOND WITHIN 15 MINUTES, PLEASE PAGE ME/CALL THROUGH THE PLANT OPERATOR HELPER. FROM 7PM-7AM, PLEASE PAGE [phone](COVR) Code Status: Full Code Barriers to Discharge: [...] 25 mg as needed for dizziness and hjyk-odc-tcnfkqf Tylenol as needed for headaches. -Patient scheduled [...] 1.66 01/02/2024 Lab Results Component Value Date [id number] 148 (L) 01/03/2024 Imaging ECG 12 lead [...] OT Discharge Recommendations: Home Signed Sara Macdonald [facility] Medicine 01/03/2024 9:20 AM [facility] 01-03-2024 Note Occupational Therapy Occupational Therapy Evaluation [...] Level of Function Prior Function Level of [place]: Independent with ADLs and functional transfers, Independent [...] Assist/Contact Guard/Supervision) Taking (more content not included)... [facility] 01-02-2024 Note 01/02/24 1201 Admission Assessment Questions [...] Discharge? No Does the patient have a bilingual patient support caseworker assigned to them through their insurance? No [...] to send link and activate MyChart? No [facility] 01-02-2024 Note 01/02/24 0931 Referral Data Referral Source sex worker or escort Referral Reason Psychosocial assessment Patient Information Primary Caregiver Self Activities of Daily Living Assistive Device Not applicable Living Arrangement (Current/Prior to Hospitalization) Private residence Behavior Oriented Communication Talks;Understands speaking;Understands Turkmen Discharge Planning Support Systems Children Patient's goal for discharge home Patient resides at home with her two adult children, ages 29 and 33. She relies on friends or other family members for transportation as no one in the family has their license. Denies financial hardship. Denies further social work needs. [facility] 01-02-2024 Note . Hospital Medicine History and Physical 01/02/2024 12:47 AM THE HOSPITALIST TEAM PREFERS TO USE [employer] FOR COMMUNICATION 7AM-7PM. IF I DO NOT RESPOND WITHIN 15 MINUTES, PLEASE PAGE ME/CALL THROUGH THE PLANT OPERATOR HELPER. FROM 7PM-7AM, PLEASE PAGE [phone](COVR) Chief Complaint Chief Complaint Patient presents with [...] exertion) 05/03/2023 COPD (chronic obstructive pulmonary disease) ([facility]) Pacemaker Hyperlipidemia Abdominal pain 10/13/2014 Constipated [...] T4 -Continued levo (more content not included)... 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 [facility] 10-24-2023 Note Patient here for fol low up echo, stress test, and device check. Review of Systems Constitutional: Positive for malaise/fatigue. Cardiovascular: Positive for chest pain and dyspnea on exertion. Respiratory: Positive for cough. Musculoskeletal: Positive for arthritis, back pain and myalgias. All other systems reviewed and are negative. [facility] 08-12-2022 History and physi leandro note Note Date/Time August 04, 2022 3:52pm [facility] [address] [place] [address] Cardiothoracic Surgery H&P Signed Patient: Emigdio Eli MR#: [id number] : 1965 Acct:[id number] Age/Sex: 56 / F Adm Date: 2 Loc: AR Room: Type: PRE DEC Attending Dr: Rodolfo Harley MD Copies to: [...] IgG IgM and IgA were all negative. Anti-IN-3 antibodies were 5.0. ?P ANCA was 1:80. [...] 2020 in the left chest from a automotive repair technician at [facility] patient [...] patient had normal TSHlevel on 07/04/22 from [facility]. We will give 100 mg of IV Solu-Cortef on-call to the OR. We will utilize vancomycin and Levaquin given the questionable history of penicillin allergy with hives as a baby, although she states she recently had penicillin without issues. Documented By: Rodolfo Harley MD 08/04/22 1223 Signed By: <Electronically signed by MD Rodolfo Harley> 08/12/22 1345 [facility] Work Phone: 1(967) 798-160911-11-2022 Hospital Discharge instructionsAmbulatory Orders* Initiate Home Health Time Frame: 08/12/22, Location: Determined By Patient Additional Instructions no lifting 5-10 lbs. Continue Peridex mouthwash. May remove dressing tomorrow. Daily showers with Betasept wash. No driving.[facility] Work Phone: 1(723) 677-284511-11-2022 Progress note Author Nathaniel Meza [facility] August 12, 2022 11:59am Note Date/Time August 12, 2022 8:13am [facility] [address] [place] [address] Pulmonology Progress Note Signed Patient: Emigdio Eli MR#: [id number] : 1965 Acct:[id number] Age/Sex: 56 / F Adm Date: 2 Loc: Room: 3F6118-3 Type: REG SDC Attending Dr: Rodolfo Harley [...] <Electronically signed by MD Nathaniel Meza> 08/12/22 2269 [facility] Work Phone: 1(770) 871-984911-10-2022 Progress note Author Nathaniel Meza [facility] August 11, 2022 10:07am Note Date/Time August 11, 2022 7:43am [facility] [address] [place] [address] Pulmonology Progress Note Signed Patient: Emigdio Eli MR#: [id number] : 1965 Acct:[id number] Age/Sex: 56 / F Adm Date: 2 Loc: Room: [address] [place] [address] Type: [facility] Attending Dr: Rodolfo Harley MD [...] <Electronically signed by MD Nathaniel Meza> 08/11/[address] [place] [address] Work Phone: 1([phone]) 743-503311-09-2022 Consult note Author Nathaniel Meza [facility] August 10, 2022 5:46pm Note Date/Time August 10, 2022 5 :41pm [facility] [address] [place] [address] Pulmonology Consult Note Signed Patient: Emigdio Eli MR#: [id number] : 1965 Acct:[id number] Age/Sex: 56 / F Adm Date: 2 Loc: Room: [address] [place] [address] Type: REG SD Attending Dr: Rodolfo Harley [...] been followed by Dr. Nadege Izquierdo at [place] with complaints of dyspnea on exertion as [...] negative unless noted below or in HPI [facility] Vaccinated for COVID-19?: No Medical History (Updated [...] able. Documented By: Nathaniel Meza MD 2 9921 Signed By: <Electronically signed by MD Nathaniel Meza> 08/10/22 6681 [facility] Work Phone: Evaluation noteNo assessment information available [facility] Work Phone: Evaluation note* Diagnosis Onset Date Resolution Status Bipolar 1 disorder acute Bronchiectasis acute Hypercholesteremia acute Hypothyroidism acute Interstitial lung disease [facility] Work Phone: evaluation note* Diagnosis Onset Date Resolution Status Bipolar 1 disorder acute Hypercholesteremia acute Hypothyroidism acute Interstitial lung disease ac filer Bipolar 1 disorder acute Bronchiectasis acute Hypercholesteremia acute Hypothyroidism acute Interstitial lung disease ac [facility] Work Phone: evaluation note* Diagnosis Memory deficit- Primary Memory loss Auditory hallucinations Hallucinations Mentally challenged Unspecified intellectual disabilities [facility] Memory deficit- Primary Memory loss Auditory hallucinations Hallucinations Mentally challenged Unspecified intellectual disabilities [facility] Memory deficit Memory loss Auditory hallucinations Hallucinations [facility] Diagnosis Transient neurological symptoms- Primary [facility] Diagnosis Closed nondisplaced fracture of right patella, unspecified fracture morphology, initial encounter- Primary Right knee pain, unspecified chronicity documented [facility] Outpatient Procedure (Routine) - Authorized Specialty Diagnoses / Procedures Referred By Contac t Referred To [facility] Diagnoses Memory deficit Auditory hallucinations Procedures EPIL EEG ROUTINE ELECTROENCEPHALOGRAM REC COMA/[place] [address] [address] [id number] Neurological [place] [address] [place] [address] Referral ID Status Reason Start Date Expiration Date Visits Requested Visits Authorized [id number] Authorized Auto-Generat ed Referral 03/06/2024 03/06/2025 1 [...] EA AD[place] 30 [place] [address] [place] [address] Referral ID Status Reason Start Date Expiration Date Visits Requested Visits Authorized [id number] Ref Not Required PCP Requested Referral 03/06/2024 06/04/2024 1 3 [facility] for referral (narrative)* Outpatient Procedure (Routine) - Closed Specialty Diagnoses / Procedures Referred By Contac t Referred To [facility] Diagnoses Memory deficit Auditory hallucinations Procedures EPIL EEG ROUTINE ELECTROENCEPHALOGRAM REC COMA/[place] [address] [place] [address] [place] [address] Referral ID Status Reason Start Date Expiration Date V isits Requested Visits Authorized [id number] Closed Auto-Generate d Referral 03/06/2024 03/06/2025 1 1 [facility] for visit Narrative* Outpatient Procedure (Routine) - Closed Specialty Diagnoses / Procedures Referred By Contac t Referred To [facility] Diagnoses Memory deficit Auditory hallucinations Procedures EPIL EEG ROUTINE ELECTROENCEPHALOGRAM REC COMA/[place] [id number] [place] [address] Referral ID Status Reason Start Date Expiration Date V isits Requested Visits Authorized [id number] Closed Auto-Generate d Referral 03/06/2024 03/06/2025 1 1 [facility] Summary Purpose Family History No Family History Records FoundNo Family History Records FoundNo Family History Records FoundNo Family History Records FoundNo Family History Records FoundNo Family History Records FoundNo Family History Records Found Advance Directives No Advanced Directives Records Found Advance Directive Response Recorded Date/ Time Advance Directives No August 05, 2022 8:18am Hospital Course Note MR#: [id number] [facility] Pt. Name: Emigdio Eli Admitted: 03/30/2020 [...] TECH 2+ TST EA ADDL 30 [place] [address] [place] [address] Referral ID Status Reason Start Date Expiration Date Visits Requested Visits Authorized [id number] Ref Not Required PCP Requested Referral 06/04/2024 09/02/2024 1 3 Additional Source Comments INFORMATION SOURCE (unrecogn ized section and content) DATE CREATED AUTHOR 04/23/2020 [facility] DATE CREATED AUTHOR AUTHOR'S ORGANIZ ATION 01/07/2023 [facility] DATE CREATED AUTHOR AUTHOR'S ORGANIZ ATION 05/30/2024 [facility] DATE CREATED AUTHOR AUTHOR'S ORGANIZ ATION 06/15/2024 [facility] DATE CREATED AUTHOR AUTHOR'S ORGANIZ ATION 06/15/2024 [facility] DATE CREATED AUTHOR AUTHOR'S ORGANIZ ATION 07/12/2024 [facility] Specialists EPIC DATE CREATED AUTHOR AUTHOR'S ORGANIZ ATION 07/17/2024 [facility] ysician Group Care Teams (unrecognized sec tion [...] Active Rodolfo Harley MD Attending Provider Active 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 Relationship Specialty Start Date End Date Tony Amaya MD [address] [place] [address] Referring Family Medicine 02/09/24 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 Relationship Specialty Start Date End Date Tony Amaya MD [address] [place] [address] Referring Family Medicine 02/09/24 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 Relationship Specialty Start Date End Date Tony Amaya MD [address] [place] [address] Referring Family Medicine 02/09/24 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 Relationship Specialty Start Date End Date Tony Amaya MD [address] [place] [address] Referring Family Medicine 02/09/24 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 Relationship Specialty Start Date End Date Tony Amaya MD [address] [place] [address] PCP - General Family Medicine 06/13/24 Tony Amaya MD [address] [place] [address] Referring Family Medicine 02/09/24 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 Relationship Specialty Start Date End Date Tony Amaya MD [address] [place] [address] PCP - General Family Medicine 06/24/24 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 Relationship Specialty Start Date End Date Tony Amaya MD [address] [place] [address] PCP - General Family Medicine 06/24/24 Goals [...] or prosecute any alcohol or drug abuse patient.[facility] the event this information is protected by the Federal Confidentiality of Alcohol and Drug Abuse Patient Records regulations: The Federal rules restrict any use of the information to criminally investigate or prosecute any alcohol or drug abuse patient.[facility] the event this information is protected by the Federal Confidentiality of Alcohol and Drug Abuse Patient Records regulations: The Federal rules restrict any use of the information to criminally investigate or prosecute any alcohol or drug abuse patient.[facility] the event this information is protected by the Federal Confidentiality of Alcohol and Drug Abuse Patient Records regulations: The Federal rules restrict any use of the information to criminally investigate or prosecute any alcohol or drug abuse patient.[facility] Hospital[facility] the event this information is protected by the Federal Confidentiality of Alcohol and Drug Abuse Patient Records regulations: The Federal rules restrict any use of the information to criminally investigate or prosecute any alcohol or drug abuse patient.[facility] Reason for Visit (unrecogniz ed section [...] BE BASED ON THE PRIMARY CLINICAL RECORDS. [facility] [employer] [facility]. provides no warranty or guarantee of the accuracy or completeness of information in this document.
[2024-07-19 16:43] VITALS: BP 120/73; PULSE 85; TEMP 36.8; O2SAT 96; BMI 20.3
[2024-07-19 17:23] LABS: Basophils Percent Auto 0.3 % (0.2-2.0); Eosinophils Percent Auto 0.3 % (0.9-7.0); Hematocrit 45.3 % (36.0-48.0); Hemoglobin 14.4 g/dL (12.0-16.0); Immature Granulocytes Abs Auto 0.01 10^3/uL (0.00-0.03); Immature Granulocytes Pct Auto 0.3 % (0.0-0.5); Lymphocytes Percent Auto 29.3 % (20.5-60.0); Mean Corpuscular HGB Conc 31.8 g/dL (29.9-35.2); Mean Corpuscular Hemoglobin 28.6 pg (26.7-34.0); Mean Corpuscular Volume 89.9 fL (81.0-99.0); Mean Platelet Volume 9.2 fL (9.5-13.5); Monocytes Absolute Auto 0.3 10^3/uL (0.3-0.8); Monocytes Percent Auto 7.8 % (1.7-12.0); Neutrophils Absolute Auto 2.1 10^3/uL (1.4-6.5); Platelet Count 183 10^3/uL (150-450); Red Blood Count 5.04 10^6/uL (4.20-5.40); Red Cell Distribution Width 13.7 % (11.0-15.0); White Blood Count 3.4 10^3/uL (4.0-11.0)
[2024-07-19 17:45] LABS: Alanine Aminotransferase 24 U/L (14-59); Albumin Globulin Ratio 0.9; Albumin Level 3.7 g/dL (3.4-5.0); Alkaline Phosphatase 99 U/L (46-116); Anion Gap 14.7; Aspartate Amino Transferase 27 U/L (15-37); BUN Creatinine Ratio 16.7; Bilirubin Total 0.7 mg/dL (0.2-1.0); Calcium 9.2 mg/dL (8.5-10.1); Carbon Dioxide 27.9 mmol/L (21.0-32.0); Chloride 102 mmol/L (98-107); Estimated GFR (African America 56 (>=60 mL/min/1.73m^2); Estimated GFR (Non-African Ame 46 (>=60 mL/min/1.73m^2); Glucose 87 mg/dL (74-106); Potassium 3.6 mmol/L (3.5-5.1); Sodium 141 mmol/L (136-145); Total Protein 7.7 g/dL (6.4-8.2)
[2024-07-19] MEDS: 0.9 % SODIUM CHLORIDE 1,000 ML 1000 ML IV (18:02)
--- NOTE | 2024-07-19 18:19 | ED_ITS ---
HPI HPI - General Adult General Chief complaint: Upper Respiratory Infection Stated complaint: NAUSEA, COVID POSITIVE Time Seen by Provider: 07/19/24 16:58 Source: patient Mode of arrival: Wheelchair History of Present Illness HPI narrative: The patient was diagnosed with COVID-19 almost 3 days ago presented to us with nausea vomiting and diarrhea that according to her has been severe, she has not been able to tolerate anything since she has the diagnosis, the patient tried using the Zofran that she was provided with last night but she kept throwing up and she was not tolerating anything by mouth The patient have generalized body ache associated with nausea vomiting and diarrhea Patient mentioned that she has not been able to urinate for the last few hours because of the dehydration The patient also is complaining of dizziness The patient also presented to her primary care doctor that recommended that she come to the hospital according to what she mentioned Related Data Home Medications ?Medication ?Instructions ?Recorded ?Confirmed bupropion HCl 300 mg 24 hr tablet, 300 mg PO DAILY 09/25/23 12/27/23 extended release cholecalciferol (vitamin D3) 50 50 mcg PO DAILY 09/25/23 12/27/23 mcg (2,000 unit) capsule citalopram 20 mg tablet 20 mg PO DAILY 09/25/23 12/27/23 lamotrigine 25 mg tablet 50 mg PO BEDTIME 09/25/23 12/27/23 lansoprazole 30 mg capsule,delayed 30 mg PO DAILY 09/25/23 12/27/23 release levothyroxine 125 mcg tablet 125 mcg PO DAILY 09/25/23 12/27/23 simvastatin 20 mg tablet 20 mg PO DAILY 09/25/23 12/27/23 docusate sodium 100 mg capsule 100 mg PO PRN 12/22/23 12/27/23 ([facility]) loratadine 10 mg tablet (Allergy 10 mg PO DAILY 12/22/23 12/27/23 Relief (loratadine)) Previous Rx's ?Medication ?Instructions ?Recorded ciprofloxacin HCl 500 mg tablet 500 mg PO Q12H #14 tabs 12/27/23 (Cipro) metronidazole 500 mg tablet 500 mg PO Q8H 7 days #21 tabs 12/27/23 ondansetron 4 mg disintegrating 4 mg PO Q6H PRN nausea and 12/27/23 tablet vomiting #20 tabs sucralfate 1 gram tablet 1 g PO ACHS #120 tabs 12/27/23 metoclopramide HCl 10 mg tablet 10 mg PO ACHS 7 days #28 tabs 12/28/23 (Reglan) albuterol sulfate 2.5 mg/3 mL 2.5 mg (3 mL) inhalation Q4H PRN 07/19/24 (0.083 %) solution for nebulization shortness of breath or wheezing #90 mL radhpaqaexmqdds-hnjjijzzzuellwe-TH 5 ml PO Q4H PRN cold symptoms #118 07/19/24 2 mg-30 mg-10 mg/5 mL oral syrup mL (Bromfed DM) ondansetron 4 mg disintegrating 4 mg PO Q8H PRN nausea and 07/19/24 tablet vomiting 4 days #16 tabs prednisone 20 mg tablet 40 mg (2 x 20 mg) PO DAILY 5 days 07/19/24 #10 tabs Allergies Allergy/AdvReac Type Severity Reaction Status Date / Time codeine Allergy Mild Vomiting Verified 07/18/24 22:27 oxycodone (From Percocet) Allergy Mild Vomiting Verified 07/18/24 22:27 promethazine Allergy Mild Agitated Verified 07/18/24 22:27 Sulfa (Sulfonamide Allergy Mild Vomiting Verified 07/18/24 22:27 Antibiotics) hydromorphone (From Dilaudid) AdvReac Mild Rash Verified 07/18/24 22:27 prochlorperazine (From AdvReac Mild Unknown Verified 07/18/24 22:27 Compazine) Opioid HPI Opioid Management Most Recent Opioid Data: Last Pain Scale 8 06/19/24 22:15 06/19/24 Last ORT Total Score 7 12/27/23 23:04 12/27/23 Last ORT Risk Category Moderate Risk 12/27/23 23:04 12/27/23 Review of Systems ROS Status of ROS 10 or more systems reviewed and unremark able except as noted in history and below [facility] Medical History (Updated 07/19/24 @ 18:30 by Feli Boucher MD) Hypothyroid ?E03.9 - Hypothyroidism, unspecified (ICD-10) Esophagitis ?K20.90 - Esophagitis, unspecified without bleeding (ICD-10) Pancolitis ?K51.00 - Ulcerative (chronic) pancolitis without complications (ICD-10) Pulmonary hypertension ?I27.20 - Pulmonary hypertension, unspecified (ICD-10) Cholecystitis ?K81.9 - Cholecystitis, unspecified (ICD-10) Depression ?F32.A - Depression, unspecified (ICD-10) On home O2 ?Z99.81 - Dependence on supplemental oxygen (ICD-10) Hyperthyroidism ?E05.90 - Thyrotoxicosis, unspecified without thyrotoxic crisis or storm (ICD-10) Scoliosis ?M41.9 - Scoliosis, unspecified (ICD-10) Emphysema lung ?J43.9 - Emphysema, unspecified (ICD-10) Nausea & vomiting ?R11.2 - Nausea with vomiting, unspecified (ICD-10) Pacemaker ?Z95.0 - Presence of cardiac pacemaker (ICD-10) COPD (chronic obstructive pulmonary disease) ?J44.9 - Chronic obstructive pulmonary disease, unspecified (ICD-10) Surgical History History of tonsillectomy ?Z90.89 - Acquired absence of other organs (ICD-10) H/O right wrist surgery ?Z98.890 - Other specified postprocedural states (ICD-10) H/O colectomy ?Z90.49 - Acquired absence of other specified parts of digestive tract (ICD- 10) Family History Mother Family history of COPD (chronic obstructive pulmonary disease) Grandmother Family history of cancer Sister Family history of diabetes mellitus Father Family history of myocardial infarction Social History (Updated 12/27/23 @ 23:45 by Meghana Lo) Within the past year, how often did you have a drink containing alcohol: never Within the past year, how often did you have six or more drinks on one occasion: never Score interpretation: A score less than 3 is consistent with normal alcohol consumption. 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 Known occupational exposures/hazards: No Highest level of school completed/degree received: 10th grade Do you want help with school or training: No Are you now , , , , never or living with a partner: In a typical week, how many times do you talk on the telephone with family, friends, or neighbors: 3 or more times per week How often do you get together with friends or relatives: 3 or more times per week How often do you attend restoration or methodist services: 4 or more times per year Do you belong to any clubs or organizations such as restoration groups unions, fraternal or athletic groups, or school groups: yes Total score: 3 Score interpretation: A score of greater than or equal to 2 indicates the lowest level of social isolation. Little interest or pleasure in doing things: not at all Feeling down, depressed, or hopeless: not at all Feel stressed/tense/nervous/anxious/difficulty sleeping: to some extent Life stressors: unknown source of stress Due to disability, difficulty making decisions: No Do you think of yourself as: bisexual Gender Identity: female Exam Narrative Exam Narrative: Nurses notes and vital signs reviewed and patient is not hypoxic. General: Well-appearing and in no apparent distress. Skin: Warm, dry, no pallor noted. No rash. Head: Normocephalic, atraumatic. Neck: Supple, non-tender. Eye: Pupils are equal, round and EOMI. No scleral icterus. Ears, Nose, Mouth, and Throat: TM are clear, no nasal mucosal hypertrophy. Oral mucosa is dry no posterior oropharynx erythema, uvula is mid-line Cardiovascular: Regular Rate and Rhythm without murmur, gallop or rub. Respiratory: No accessory muscle use or respiratory distress. Lungs are clear to auscultation, no wheezing, rales or rhonchi Chest Wall: no tenderness Back: No midline thoracic or lumbar vertebral tenderness. No CVA tenderness GI: Abdomen is soft, non-distended. Normal bowel sounds. No masses appreciated. No tenderness to palpation. No rebound, guarding, or rigidity noted. Neurological: A&O x4. No cranial nerve dysfunction observed. No truncal ataxia. Moves all extremities. Sensation intact. Psychiatric: Cooperative and interactive. Normal mood and affect. Constitutional Vital Signs, click to edit/add: Last Vital Signs Temp 98.2 F 07/19/24 16:43 Pulse 85 07/19/24 16:43 Resp 16 07/19/24 16:43 BP 120/73 07/19/24 16:43 Pulse Ox 96 07/19/24 16:43 O2 Del Method Room Air 07/19/24 16:43 Course Vital Signs Vital signs: Vital Signs Temperature 98.2 F 07/19/24 16:43 Pulse Rate 85 07/19/24 16:43 Respiratory Rate 16 07/19/24 16:43 Blood Pressure 120/73 07/19/24 16:43 Pulse Oximetry 96 07/19/24 16:43 Oxygen Delivery Method Room Air 07/19/24 16:43 Temperature 98.2 F 07/19/24 16:43 Pulse Rate 85 07/19/24 16:43 Respiratory Rate 16 07/19/24 16:43 Blood Pressure 120/73 07/19/24 16:43 Pulse Oximetry 96 07/19/24 16:43 Oxygen Delivery Method Room Air 07/19/24 16:43 Medical Decision Making MDM Narrative Medical decision making narrative: The patient CBC shows some leukopenia which is mostly secondary to her COVID-19 diagnosis The patient chemistry showing acute kidney injury with a 1.2 creatinine and elevated BUN At this is the second visit for the patient and she did try Zofran at home and she still have intractable nausea and vomiting the patient will be admitted for observation Patient case was discussed with admitting team and she will be admitted under Dr. Turner Lab Data Labs: Lab Results 07/19/24 Range/Units 17:16 WBC 3.4 L (4.0-11.0) 10^3/uL RBC 5.04 (4.20-5.40) 10^6/uL Hgb 14.4 (12.0-16.0) g/dL Hct 45.3 (36.0-48.0) % MCV 89.9 (81.0-99.0) fL MCH 28.6 (26.7-34.0) pg MCHC 31.8 (29.9-35.2) g/dL RDW 13.7 (11.0-15.0) % Plt Count 183 (150-450) 10^3/uL MPV 9.2 L (9.5-13.5) fL Neut % (Auto) 62.0 (43.0-75.0) % Lymph % (Auto) 29.3 (20.5-60.0) % [place] % (Auto) 7.8 (1.7-12.0) % Eos % (Auto) 0.3 L (0.9-7.0) % Baso % (Auto) 0.3 (0.2-2.0) % Neut # (Auto) 2.1 (1.4-6.5) 10^3/uL Lymph # (Auto) 1.0 L (1.2-3.8) 10^3/uL [place] # (Auto) 0.3 (0.3-0.8) 10^3/uL Eos # (Auto) 0.0 (0.0-0.7) 10^3/uL Baso # (Auto) 0.0 (0.0-0.1) 10^3/uL Abs Immat Gran (auto) 0.01 (0.00-0.03) 10^3/uL Imm/Tot Granulo (auto) 0.3 (0.0-0.5) % Sodium 141 (136-145) mmol/L Potassium 3.6 (3.5-5.1) mmol/L Chloride 102 (98-107) mmol/L Carbon Dioxide 27.9 (21.0-32.0) mmol/L Anion Gap 14.7 BUN 20.0 H (7.0-18.0) mg/dL Creatinine 1.20 H (0.55-1.02) mg/dL Est GFR ( Amer) 56 L (>=60 mL/min/1.73m^2) Est GFR (Non-Af Amer) 46 L (>=60 mL/min/1.73m^2) BUN/Creatinine Ratio 16.7 Glucose 87 (74-106) mg/dL Calcium 9.2 (8.5-10.1) mg/dL Total Bilirubin 0.7 (0.2-1.0) mg/dL AST 27 (15-37) U/L ALT 24 (14-59) U/L Alkaline Phosphatase 99 (46-116) U/L Total Protein 7.7 (6.4-8.2) g/dL Albumin 3.7 (3.4-5.0) g/dL Globulin 4.0 g/dL Albumin/Globulin Ratio 0.9 Discharge Plan Discharge Chief Complaint: Upper Respiratory Infection Clinical Impression: COVID, Gastroenteritis, ESE (acute kidney injury) Patient Disposition: Admitted as Observation Time of Disposition Decision: 18:30
[2024-07-19] MEDS: ONDANSETRON PF 4 MG/2 ML VIAL IV (18:25)
[2024-07-19] MEDS: ACETAMINOPHEN 325 MG TABLET 650 MG PO (18:26)
[2024-07-19] MEDS: FAMOTIDINE/PF 20 MG/2 ML VIAL IV (18:26)
[2024-07-19 19:12] VITALS: BP 102/59; PULSE 82; TEMP 36.8; O2SAT 96
--- OUTSIDE RECORDS SUMMARY | 2024-07-19 19:21 | XMS_ITS | CCD ---
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 CONSULT Reason For Consult consatnt dizziness Referring Provider: Pam Way MD History Of Present Illness Emigdio Eli is a 58 y.o. female who presented to [facility] emergency department with complaints dizziness for [...] by Dr. Tony Amaya on 12/29/2023 in [place] due to this persistent dizziness. She was [...] Abnormal ECG, COPD (chronic obstructive pulmonary disease) ([facility]), and Hyperlipidemia. Surgical History She has [...] intact. Crani (more content not included)... Normal [facility] EDPROVon 01-02-2024 EDPROV HPI Chief Complaint [...] Glucose, Urine Negative Bilirubin, Urine Negative Specific [place], Urine 1.041 (*) Ketones, Urine Trace (*) [...] Procedure Abnormality Status --------- ------ CBC auto differential[[id number]] Abnormal Final result Please view results for [...] need admi (more content not included)... Normal [facility] T4, FREEon 01-02-2024 THYROXINE (T4) FREE (NG/DL) IN SER/PLAS 1.66 ng/dL Normal 0.71-1.85 [facility] Comment on above: Performed By: #### L [id number] ####[facility] ([facility])[address] [place] [address] TSH3 REFLEX TO FT4on 024 THYROTROPIN (MIU/L) IN SER/PLAS BY DETECTION LIMIT <= 0.05 MIU/L 0.01 mIU/L Low 0.34-5.60 [facility] Comment on above: Performed By: #### L [id number] #### [facility] ([facility]) [address] [place] [address] CBC WITH AUTO DIFFERENTIALon 01-01-2024 Basophils (Bld) [#/Vol] 0.02 10*3/uL Normal 0.00-0.20 [facility] Comment on above: Performed By: #### L [id number] #### [facility] ([facility]) [address] [place] [address] Basophils/100 WBC (Bld) 0.6 % Normal 0.0-1.0 [facility] Comment on above: Performed By: #### L [id number] #### [facility] ([facility]) [address] [place] [address] Eosinophils (Bld) [#/Vol] 0.09 10*3/uL Normal 0.00-0.50 [facility] Comment on above: Performed By: #### L [id number] #### [facility] ([facility]) [address] [address] Eosinophils/100 WBC (Bld) 2.6 % Normal 0.0-6.0 [facility] Comment on above: Performed By: #### L [id number] #### [facility] ([facility] [address] [place] [address] Erythrocyte distribution width (RBC) [Ratio] 13.6 % Normal 11.5-15.0 [facility] Comment on above: Performed By: #### L [id number] #### [facility] ([facility]) [address] [place] [address] ERYTHROCYTE MEAN CORPUSCULAR HEMOGLOBIN CONCENTRATION (G/DL) BY AUTOMATED 33.9 g/dL Normal 32.0-35.0 [facility] Comment on above: Performed By: #### L [id number] #### [facility] ([facility]) [address] [address] Hematocrit (Bld) [Volume fraction] 42.2 % Normal 36.0-48.0 [facility] Comment on above: Performed By: #### L [id number] #### [facility] ([facility]) [address] [place] [address] Hemoglobin (Bld) [Mass/Vol] 14.3 g/dL Normal 12.0-15.0 [facility] Comment on above: Performed By: #### L [id number] #### [facility] ([facility]) [address] [address] Immature granulocytes (Bld) [#/Vol] 0.02 10*3/uL Normal 0.00-0.20 [facility] Comment on above: Performed By: #### L [id number] #### [facility] ([facility]) [address] [place] [address] Immature granulocytes/100 WBC (Bld) 0.6 % Normal 0.0-1.0 [facility] Comment on above: Performed By: #### L [id number] #### [facility] ([facility]) [address] [place] [address] Lymphocytes (Bld) [#/Vol] 1.11 10*3/uL Low 1.20-4.00 [facility] Comment on above: Performed By: #### L [id number] #### [facility] ([facility]) [address] [address] Lymphocytes/100 WBC (Bld) 32.1 % Normal 20.0-45.0 [facility] Comment on above: Performed By: #### L [id number] #### [facility] ([facility]) [address] [place] [address] MCH (RBC) [Entitic mass] 29.0 pg Normal 27.0-33.0 [facility] Comment on above: Performed By: #### L [id number] #### [facility] ([facility]) [address] [address] MCV (RBC) [Entitic vol] 85.6 fL Normal 82.0-98.0 [facility] Comment on above: Performed By: #### L [id number] #### [facility] ([facility] [address] [address] Monocytes (Bld) [#/Vol] 0.28 10*3/uL Normal 0.10-1.00 [facility] Comment on above: Performed By: #### L [id number] #### [facility] ([facility]) [address] [place] [address] Monocytes/100 WBC (Bld) 8.1 % Normal 5.0-12.0 [facility] Comment on above: Performed By: #### L [id number] #### [facility] ([facility]) [address] [place] [address] Neutrophils (Bld) [#/Vol] 1.94 10*3/uL Normal 1.60-7.60 [facility] Comment on above: Performed By: #### L [id number] #### [facility] ([facility]) [address] [place] [address] Neutrophils/100 WBC (Bld) 56.0 % Normal 40.0-72.0 [facility] Comment on above: Performed By: #### L [id number] #### [facility] ([facility]) [address] [place] [address] NRBC (PER 100 WBCS) BY AUTOMATED COUNT 0.0 % Normal 0 [facility] Comment on above: Performed By: #### L [id number] #### [facility] ([facility]) [address] [place] [address] PLATELETS (10*3/UL) IN BLOOD AUTOMATED COUNT 222 10*3/uL Normal 150-400 [facility] Comment on above: Performed By: #### L [id number] #### [facility] ([facility]) [address] [place] [address] RBC (Bld) [#/Vol] 4.93 10*6/uL Normal 3.80-5.00 [facility] Comment on above: Performed By: #### L [id number] #### [facility] ([facility]) [address] [place] [place] [address] WBC (Bld) [#/Vol] 3.46 10*3/uL Low 4.00-10.60 [facility] Comment on above: Performed By: #### L [id number] #### [facility] ([facility]) [address] [place] [address] COMPREHENSIVE METABOLIC PANE Balwinder 01-01-2024 Albumin [Mass/Vol] 4.1 g/dL Normal 3.5-5.7 [facility] Comment on above: Performed By: #### L [id number] #### [facility] ([facility]) [address] [place] [address] ALP [Catalytic activity/Vol] 81 U/L Normal 34-104 [facility] Comment on above: Performed By: #### L [id number] #### [facility] ([facility]) [address] [place] [address] ALT [Catalytic activity/Vol] 10 U/L Normal 7-52 [facility] Comment on above: Performed By: #### L [id number] #### [facility] ([facility]) [address] [place] [address] Anion gap [Moles/Vol] 14 mmol/L Normal 7-20 [facility] Comment on above: Performed By: #### L [id number] #### [facility] ([facility]) [address] [place] [address] AST [Catalytic activity/Vol] 20 U/L Normal 13-39 [facility] Comment on above: Performed By: #### L [id number] #### [facility] ([facility]) [address] [place] [address] Bilirubin [Mass/Vol] 0.5 mg/dL Normal 0.3-1.0 [facility] Comment on above: Performed By: #### L [id number] #### [facility] ([facility]) [address] [place] [address] Calcium [Mass/Vol] 9.6 mg/dL Normal 8.6-10.3 [facility] Comment on above: Performed By: #### L [id number] #### [facility] ([facility]) [address] [place] [address] Chloride [Moles/Vol] 106 mmol/L Normal 98-107 [facility] Comment on above: Performed By: #### L [id number] #### [facility] [address] [place] [address] CO2 [Moles/Vol] 24 mmol/L Normal 21-31 [facility] Comment on above: Performed By: #### L [id number] #### [facility] ([facility]) [address] [place] [address] Creatinine [Mass/Vol] 0.82 mg/dL Normal 0.60-1.20 [facility] Comment on above: Performed By: #### L [id number] #### [facility] ([facility]) [address] [place] [address] GLOMERULAR FILTRATION RATE ML/MIN/1.73 SQ M.PREDICTED 82.3 mL/min/1.73m*2 Normal >60.0 [facility] Comment on above: Result Comment: [facility]???s estimated glomerular filtration rate (eGFR) will [...] group of individuals. Performed By: #### L [id number] #### [facility] ([facility]) [address] [place] [address] Glucose [Mass/Vol] 86 mg/dL Normal 70-100 [facility] Comment on above: Performed By: #### L [id number] #### [facility] [address] [place] [address] Potassium [Moles/Vol] 3.8 mmol/L Normal 3.5-5.1 [facility] Comment on above: Performed By: #### L [id number] #### [facility] ([facility]) [address] [place] [address] Protein [Mass/Vol] 6.7 g/dL Normal 6.0-8.3 [facility] Comment on above: Performed By: #### L [id number] #### [facility] ([facility]) [address] [place] [address] Sodium [Moles/Vol] 140 mmol/L Normal 136-[address] [facility] Comment on above: Performed By: #### L [id number] #### [facility] ([facility]) [address] [place] [address] Urea nitrogen [Mass/Vol] 10 mg/dL Normal 7-25 [facility] Comment on above: Performed By: #### L [id number] #### [facility] ([facility]) [address] [place] [address] UREA NITROGEN/CREATININE (MASS RATIO) IN SER/PLAS 12.2 Normal [facility] Comment on above: Performed By: #### L [id number] #### [facility] ([facility]) [address] [place] [address] CT ABDOMEN PELVIS W IV CONTR Marquita [...] Electronically signed: Shari Knight Invalid Interpretation Code [facility] CT HEAD WO IV CONTRASTon CT [...] signed: Shari Turner Vldtd Invalid Interpretation Code [facility] CTA HEAD W IV CONTRASTon CTA [...] signed: Shari Turner Vldtd Invalid Interpretation Code [facility] CTA NECK W IV CONTRASTon CTA [...] Shari Mahoney. Yue Knight Invalid Interpretation Code [facility] EDNURSon 01-01-2024 EDNURS Pt arrives with avani maldonado to triage, states that pt has been seen at [facility] multiple times for increased dizziness, vomiting, and diarrhea for the past 2 weeks. Pt states that she is suppose to get an MRI of her brain done at [facility] but has not scheduled it yet. Reports multiple falls d/t dizziness. Normal [facility] EDPROVon 01-01-2024 EDPROV [facility] [address] [facility] [address] EMERGENCY DEPARTMENT ENCOUNTER 01/01/2024 CHIEF COMPLAINT Chief [...] Abnormal ECG, COPD (chronic obstructive pulmonary disease) ([facility]), and Hyperlipidemia. SURGICAL HISTORY has a [...] Motor functio (more content not included)... Normal [facility] ETHANOLon 01-01-2024 ETHANOL (MG/DL) IN SER/PLAS <10 Normal [facility] Comment on above: Performed By: #### L [id number] ####[facility] ([facility])[address] [place] [address] ETHANOL CALCULATED (%) Normal [facility] Comment on above: Performed By: #### L [id number] ####[facility] ([facility])[address] [place] [address] LACTIC ACID WITH 4 HOUR REFL EXon 01-01-2024 LACTATE (MMOL/L) IN SER/PLAS 0.8 mmol/L Normal 0.5-2.2 [facility] Comment on above: Performed By: #### L [id number] #### [facility] ([facility]) [address] [place] [address] LIPASEon 01-01-2024 LIPASE (U/L) IN SER/PLAS 47 U/L Normal 11-82 [facility] Comment on above: Performed By: #### L [id number] #### [facility] ([facility]) [address] [facility] [place] [address] MAGNESIUMon 01-01-2024 Magnesium [Mass/Vol] 2.1 mg/dL Normal 1.9-2.7 [facility] Comment on above: Performed By: #### L [id number] #### [facility] ([facility]) [address] [place] [address] T4, FREEon 01-01-2024 THYROXINE (T4) FREE (NG/DL) IN SER/PLAS 1.44 ng/dL Normal 0.71-1.85 [facility] Comment on above: Performed By: #### L [id number] ####[facility] ([facility])[address] [place] [address] TOXICOLOGY PANEL URINEon AMPHETAMINE+METHAMPHET AMINE SCREEN (PRESENCE) IN URINE Negative Normal Negative [facility] Comment on above: Performed By: #### L [id number] #### [facility] ([facility]) [address] [place] [address] BARBITURATES PRESENCE IN URINE BY SCREEN METHOD Negative Normal Negative [facility] Comment on above: Performed By: #### L [id number] #### [facility] ([facility]) [address] [place] [address] Benzodiazepines Ql (U) Negative Normal Negative [facility] Comment on above: Performed By: #### L [id number] #### [facility] [address] [place] [address] CANNABINOID (PRESENCE) IN URINE BY SCREEN METHOD Negative Normal Negative [facility] Comment on above: Performed By: #### L [id number] #### [facility] ([facility]) [address] [place] [address] Cocaine Ql (U) Negative Normal Negative [facility] Comment on above: Performed By: #### L [id number] #### [facility] [address] [place] [address] METHADONE (PRESENCE) IN URINE BY SCREEN METHOD Negative Normal Negative [facility] Comment on above: Performed By: #### L [id number] #### [facility] ([facility]) [address] [place] [address] OPIATES (PRESENCE) IN URINE BY SCREEN METHOD Negative Normal Negative [facility] Comment on above: Performed By: #### L [id number] #### [facility] ([facility]) [address] [place] [address] PHENCYCLIDINE PRESENCE IN URINE BY SCREEN METHOD Negative Normal Negative [facility] Comment on above: Performed By: #### L [id number] #### [facility] (BEAKER) [address] [place] [address] Propoxyphene Screen Ql (U) Negative Normal Negative [facility] Comment on above: Performed By: #### L [id number] #### [facility] (BEAKER) [address] [place] [address] TRICYCLIC ANTIDEPRESSANTS (PRESENCE) IN URINE Negative Normal Negative [facility] Comment on above: Performed By: #### L [id number] #### [facility] ([facility]AKER) [address] [place] [address] TROPONIN Ion 01-01-2024 Troponin I.cardiac [Mass/Vol] 0.00 ng/mL Normal 0.00-0.04 [facility] Comment on above: Performed By: #### L [id number] ####[facility] ([facility])[address] [address] TSH3 REFLEX TO FT4on 024 THYROTROPIN (MIU/L) IN SER/PLAS BY DETECTION LIMIT <= 0.05 MIU/L 0.02 mIU/L Low 0.34-5.60 [facility] Comment on above: Performed By: #### L [id number] #### [facility] ([facility]) [address] [place] [address] URINALYSIS WITH REFLEX CULTU REon 01-01-2024 BILIRUBIN, TOTAL PRESENCE IN URINE Negative Normal Negative [facility] Comment on above: Order Comment: Micro scopics not performed on urines with negative chemical reactions unless requested on original order. Performed By: #### L [id number] #### [facility] ([facility]) [address] [place] [address] Clarity (U) Clear Normal Clear [facility] Comment on above: Order Comment: Micro scopics not performed on urines with negative chemical reactions unless requested on original order. Performed By: #### L [id number] #### [facility] ([facility]) [address] [place] [address] Color (U) Straw Abnormal Yellow [facility] Comment on above: Order Comment: Micro scopics not performed on urines with negative chemical reactions unless requested on original order. Performed By: #### L [id number] #### [facility] ([facility]) [address] [place] [address] Glucose (U) [Mass/Vol] Negative Normal [facility]: Order Comment: Micro scopics not performed on urines with negative chemical reactions unless requested on original order. Performed By: #### L [id number] #### [facility] ([facility]) [address] [place] [address] HEMOGLOBIN PRESENCE IN URINE Negative Normal Negative [facility] Comment on above: Order Comment: Micro scopics not performed on urines with negative chemical reactions unless requested on original order. Performed By: #### L [id number] #### [facility] ([facility]) [address] [place] [address] Ketones Ql (U) Trace Abnormal Negative [facility] Comment on above: Order Comment: Micro scopics not performed on urines with negative chemical reactions unless requested on original order. Performed By: #### L [id number] #### [facility] ([facility]) [address] [place] [address] LEUKOCYTE ESTERASE PRESENCE IN URINE BY TEST STRIP Negative Normal Negative [facility] Comment on above: Order Comment: Micro scopics not performed on urines with negative chemical reactions unless requested on original order. Performed By: #### L [id number] #### [facility] ([facility]) [address] [place] [address] NITRITE PRESENCE IN URINE Negative Normal Negative [facility] Comment on above: Order Comment: Micro scopics not performed on urines with negative chemical reactions unless requested on original order. Performed By: #### L [id number] #### [facility] ([facility]) [address] [place] [address] pH (U) 6.0 [pH] Normal 5.0-8.0 [facility] Comment on above: Order Comment: Micro scopics not performed on urines with negative chemical reactions unless requested on original order. Performed By: #### L [id number] #### [facility] ([facility]) [address] [place] [address] Protein (U) [Mass/Vol] Negative Normal Negative [facility] Comment on above: Order Comment: Micro scopics not performed on urines with negative chemical reactions unless requested on original order. Performed By: #### L [id number] #### [facility] ([facility]) [address] [place] [address] Specific gravity (U) [Rel density] 1.041 High 1.015-1.02 0 [facility] Comment on above: Order Comment: Micro scopics not performed on urines with negative chemical reactions unless requested on original order. Performed By: #### L [id number] #### [facility] ([facility]) [address] [place] [address] Office Visiton 10-24-2023 Follow-up visit [id number] Dariel Eli S 1965 F Date Provider Department Center 10/24/2023 MARI A[facility] Family History Problem Relation Age of Onset Alzheimer's disease Father Family Status - Relation Status Age at Mother Alive Father Level of Service:55735 SC OFFICE/OUTPATIENT ESTABLISHED MOD MDM 30 MIN Normal [facility] Orders Onlyon 09-01-2023 Orders Only [id number] Dariel Eli S 1965 F Date Provider Department Center 09/01/2023 Jony8MARVIN ROTH ALECIA [facility] Family History Problem Relation Age of Onset Alzheimer's disease Father Family Status - Relation Status Age at Mother Alive Father Normal [facility] CBC AUTO DIFFon 01-07-2023 BASO # 0.0 103/ul Normal 0.0-0.1 [facility] Comment on above: Performed By: #### C BC ####[facility] [address] [place] [address]Dr. Shahbaz Rogel Basophils/100 WBC (Bld) 0.3 % Normal 0.2-2.0 [facility] Comment on above: Performed By: #### C BC ####[facility] [address] [place] [address]Dr. Shahbaz Rogel EO # 0.0 103/ul Normal 0.0-0.7 [facility] Comment on above: Performed By: #### C BC ####[facility] [address] [place] [address]Dr. Shahbaz Rogel Eosinophils/100 WBC (Bld) 0.0 % Critically low 0.9-7.0 [facility] Comment on above: Performed By: #### C BC ####[facility] Szjfqtecbo[address] [place], [place] [address]Dr. Shahbaz Rogel Erythrocyte distribution width (RBC) [Ratio] 13.5 % Normal 11.0-15.0 [facility] Comment on above: Performed By: #### C BC ####[facility] Yx[address]ou[address] [place] [address]Dr. Shahbaz Rogel Hematocrit (Bld) [Volume fraction] 36.4 % Normal 36.0-48.0 [facility] Comment on above: Performed By: #### C BC ####[facility] Nljb[address]dxs[address] [place] [address]Dr. Shahbaz Rogel Hemoglobin (Bld) [Mass/Vol] 11.6 g/dL Critically low 12.0-16.0 [facility] Comment on above: Performed By: #### C BC ####[facility] Kkyounxciv[address] [place], [place] [address]DrChen Shahbaz Rogel IG # 0.06 10e3/ul Critically high 0.00-0.03 [facility] Comment on above: Performed By: #### C BC ####[facility] Pgy[address]jxnhsr[address] [place], [place] [address]DrChen Shahbaz Juan F IG % 1.5 % Critically high 0.0-0.5 [facility] Comment on above: Performed By: #### C BC ####[facility] Hstzpetfgs[address] [place], [place] [address]DrChen Shahbaz Rogel LYMPH # 0.7 103/ul Critically low 1.2-3.8 [facility] Comment on above: Performed By: #### C BC ####[facility] Whfpjilgyg[address] [place], [place] [address]DrChen Shahbaz Rogel Lymphocytes/100 WBC (Bld) 16.6 % Critically low 20.5-60.0 [facility] Comment on above: Performed By: #### C BC ####[facility] Enofxbnaxq[address] [place], [place] [address]DrChen Shahbaz Rogel MANUAL DIFF REQ NO Normal [facility] Comment on above: Performed By: #### C BC ####[facility] Aanrbqrzdq[address] [place], [place] [address]DrChen Shahbaz Rogel MCH (RBC) [Entitic mass] 27.6 pg Normal 26.7-34.0 [facility] Comment on above: Performed By: #### C BC ####[facility] [address]zdb[address] [place] [phone]. Shahbaz Rogel MCHC (RBC) [Mass/Vol] 31.9 g/dL Normal 29.9-35.2 [facility] Comment on above: Performed By: #### C BC ####[facility] Nbeknfmtcb8[address] [place] [phone]. Shahbaz Rogel MCV (RBC) [Entitic vol] 86.5 fL Normal 81.0-99.0 [facility] Comment on above: Performed By: #### C BC ####[facility] N[address]ryxasvoe[address] [place], [place] [address]Dr. Shahbaz Rogel MONO # 0.2 103/ul Critically low 0.3-0.8 [facility] Comment on above: Performed By: #### C BC ####[facility] Rjduvvkmrh[address] [place], [place] [address]Dr. Shahbaz Rogel Monocytes/100 WBC (Bld) 5.0 % Normal 1.7-12.0 [facility] Comment on above: Performed By: #### C BC ####[facility] Ewurcstuex[address] [place], [place] [address]Dr. Shahbaz Rogel NEUT # 3.1 103/ul Normal 1.4-6.5 [facility] Comment on above: Performed By: #### C BC ####[facility] Jqvgzcwicp[address] [place], [place] [address]Dr. Shahbaz Rogel Neutrophils/100 WBC (Bld) 76.6 % Critically high 43.0-75.0 [facility] Comment on above: Performed By: #### C BC ####[facility] Hhqbzzzrzs[address] [place], [place] [phone] Rogel Platelet mean volume (Bld) [Entitic vol] 9.9 fL Normal 9.5-13.5 [facility] Comment on above: Performed By: #### C BC ####[facility] Hughydqweu[address] [place], [place] [address]Dr. Shahbaz Rogel PLT 194 103/ul Normal 150-450 [facility] Comment on above: Performed By: #### C BC ####[facility] W[address]ojpymj[address] [place] [address]Dr. Shahbaz Rogel RBC 4.21 106/ul Normal 4.20-5.40 [facility] Comment on above: Performed By: #### C BC ####[facility] W[address]evsbddo[address] [place] [address]Dr. Shahbaz Rogel WBC 4.0 103/ul Normal 4.0-11.0 [facility] Comment on above: Performed By: #### C BC ####[facility] [address]iiuvypfif[address] [place] [address]Dr. Shahbaz Rogel PROF CHEM 8 (BAS METB)on Anion gap [Moles/Vol] 9.5 mmol/L Normal [facility] Comment on above: Performed By: #### B MP ####[facility] Jovqyxnsxl[address] [place], [place] [address]Dr. Shahbaz Rogel Calcium [Mass/Vol] 8.8 mg/dL Normal 8.5-10.1 [facility] Comment on above: Performed By: #### B MP ####[facility] Dieceuruwt8[address] [place], [place] [address]Dr. Shahbaz Rogel Chloride [Moles/Vol] 106 mmol/L Normal 98-107 [facility] Comment on above: Performed By: #### B MP ####[facility] Gunnegmnbh[address] [place], [place] [address]Dr. Shahbaz Rogel CO2 [Moles/Vol] 29.6 mmol/L Normal 21.0-32.0 [facility] Comment on above: Performed By: #### B MP ####[facility] Iydqojmblt[address] [place], [place] [address]Dr. Shahbaz Rogel Creatinine [Mass/Vol] 0.80 mg/dL Normal 0.55-1.02 [facility] Comment on above: Performed By: #### B MP ####[facility] Hssdgcyvpk[address] [place], [place] [address]Dr. Shahbaz Rogel EGFR-AF FAROESE >60 Normal >=60 [facility] Comment on above: Performed By: #### B MP ####[facility] [address]vh[address] [place] [phone]. Shahbaz Juan F EGFR-NON AF FAROESE >60 Normal >=60 [facility] Comment on above: Performed By: #### B MP ####[facility] Ez[address]jyekp[address] [place] [phone]. Shahbaz Rogel Glucose [Mass/Vol] 137 mg/dL Critically high 74-106 [facility] Comment on above: Performed By: #### B MP ####[facility] Onwirodgou32[address] [place] [phone]. Shahbaz Rogel Potassium [Moles/Vol] 4.1 mmol/L Normal 3.5-5.1 [facility] Comment on above: Performed By: #### B MP ####[facility] Nkdvdoxhga[address] [place], [place] [address]Dr. Shahbaz Rogel Sodium [Moles/Vol] 141 mmol/L Normal 136-145 [facility] Comment on above: Performed By: #### B MP ####[facility] Hmckgrmatj[address] [place], [place] [address]Dr. Shahbaz Rogel Urea nitrogen [Mass/Vol] 18.0 mg/dL Normal 7.0-18.0 [facility] Comment on above: Performed By: #### B MP ####[facility] Abltlneelk[address] [place], [place] [address]Dr. Shahbaz Rogel Urea nitrogen/Creatinine [Mass ratio] 22.5 mg/mg Normal [facility] Comment on above: Performed By: #### B MP ####[facility] Vhirztxgfr[address] [place], [place] [address]Dr. Shahbaz Rogel CBC AUTO DIFFon 01-06-2023 BASO # 0.0 103/ul Normal 0.0-0.1 [facility] Comment on above: Performed By: #### C BC ####[facility] Bqgclvgcii[address] [place], [place] [address]Dr. Shahbaz Rogel Basophils/100 WBC (Bld) 0.0 % Critically low 0.2-2.0 [facility] Comment on above: Performed By: #### C BC ####[facility] Ucvtsovjxe[address] [place] [phone]. Shahbaz Rogel EO # 0.0 103/ul Normal 0.0-0.7 [facility] Comment on above: Performed By: #### C BC ####[facility] Xnpmqrqcra994[address] [place], [place] [address]Dr. Shahbaz Rogel Eosinophils/100 WBC (Bld) 0.0 % Critically low 0.9-7.0 [facility] Comment on above: Performed By: #### C BC ####[facility] Cuyafavaio[address] [place], [place] [address]Dr. Shahbaz Rogel Erythrocyte distribution width (RBC) [Ratio] 13.8 % Normal 11.0-15.0 [facility] Comment on above: Performed By: #### C BC ####[facility] Vrfsfluafb[address] [place], [place] [address]Dr. Shahbaz Rogel Hematocrit (Bld) [Volume fraction] 36.9 % Normal 36.0-48.0 [facility] Comment on above: Performed By: #### C BC ####[facility] Vlzomumekq[address] [place], [place] [address]Dr. Shahbaz Rogel Hemoglobin (Bld) [Mass/Vol] 11.8 g/dL Critically low 12.0-16.0 [facility] Comment on above: Performed By: #### C BC ####[facility] Cuzsbgiawc9[address] [place], [place] [address]Dr. Shahbaz Rogel IG # 0.04 10e3/ul Critically high 0.00-0.03 [facility] Comment on above: Performed By: #### C BC ####[facility] Vhfwumfnkz[address] [place], [place] [address]Dr. Shahbaz Rogel IG % 1.1 % Critically high 0.0-0.5 [facility] Comment on above: Performed By: #### C BC ####[facility] Djdhcbgwus[address] [place], [place] [address]Dr. Lilajarrod Rogel LYMPH # 0.5 103/ul Critically low 1.2-3.8 [facility] Comment on above: Performed By: #### C BC ####[facility] Exgcpjfovt18[address] [place] [id number]. Lilajarrod Rogel Lymphocytes/100 WBC (Bld) 13.9 % Critically low 20.5-60.0 [facility] Comment on above: Performed By: #### C BC ####[facility] Y[address]chsktl[address] [place] [id number]. Shahbaz Rogel MANUAL DIFF REQ NO Normal [facility] Comment on above: Performed By: #### C BC ####[facility] Azwjazmune94[address] [place] [phone]. Shahbaz Rogel MCH (RBC) [Entitic mass] 27.8 pg Normal 26.7-34.0 [facility] Comment on above: Performed By: #### C BC ####[facility] Knblpyehoa[address] [place], [place] [address]Dr. Shahbaz Rogel MCHC (RBC) [Mass/Vol] 32.0 g/dL Normal 29.9-35.2 [facility] Comment on above: Performed By: #### C BC ####[facility] Ylxgssavhw[address] [place], [place] [address]Dr. Shahbaz Rogel MCV (RBC) [Entitic vol] 86.8 fL Normal 81.0-99.0 [facility] Comment on above: Performed By: #### C BC ####[facility] Thrnloxubv80[address] [place], [place] [address]Dr. Shahbaz Rogel MONO # 0.1 103/ul Critically low 0.3-0.8 [facility] Comment on above: Performed By: #### C BC ####[facility] Qihfkivujd[address] [place], [place] [address]Dr. Shahbaz Rogel Monocytes/100 WBC (Bld) 3.7 % Normal 1.7-12.0 [facility] Comment on above: Performed By: #### C BC ####[facility] Myfbiineov[address] [place], [place] [address]Dr. Shahbaz Rogel NEUT # 3.1 103/ul Normal 1.4-6.5 [facility] Comment on above: Performed By: #### C BC ####[facility] Wopoqbqvai87[address] [place] [id number]. Shahbaz Rogel Neutrophils/100 WBC (Bld) 81.3 % Critically high 43.0-75.0 [facility] Comment on above: Performed By: #### C BC ####[facility] Qfgjgovjli7530 [place] [id number]. Shahbaz Rogel Platelet mean volume (Bld) [Entitic vol] 9.8 fL Normal 9.5-13.5 [facility] Comment on above: Performed By: #### C BC ####[facility] Nwmnhezvzv[address] [place] [address]Dr. Shahbaz Rogel PLT 184 103/ul Normal 150-450 [facility] Comment on above: Performed By: #### C BC ####[facility] Ijehaekpkm[address] [place] [address]Dr. Shahbaz Rogel RBC 4.25 106/ul Normal 4.20-5.40 [facility] Comment on above: Performed By: #### C BC ####[facility] Ttzdeenhha2[address] [place] [id number]. Shahbaz Rogel WBC 3.8 103/ul Critically low 4.0-11.0 [facility] Comment on above: Performed By: #### C BC ####[facility] Jpvxuiovzn62[address] [place] [address]Dr. Shahbaz Rogel PROF CHEM 8 (BAS METB)on Anion gap [Moles/Vol] 9.2 mmol/L Normal [facility] Comment on above: Performed By: #### B MP ####[facility] Cgprhhbtgi7[address] [place] [id number]. Shahbaz Rogel Calcium [Mass/Vol] 8.6 mg/dL Normal 8.5-10.1 [facility] Comment on above: Performed By: #### B MP ####[facility] Vykalotcea[address] [place] [address]Dr. Shahbaz Rogel Chloride [Moles/Vol] 107 mmol/L Normal 98-107 [facility] Comment on above: Performed By: #### B MP ####[facility] Hgspwkzygt6822 [place] [address]Dr. Shahbaz Rogel CO2 [Moles/Vol] 29.3 mmol/L Normal 21.0-32.0 [facility] Comment on above: Performed By: #### B MP ####[facility] Anhbjeqrky6[address] [place] [address]Dr. Shahbaz Rogel Creatinine [Mass/Vol] 0.79 mg/dL Normal 0.55-1.02 [facility] Comment on above: Performed By: #### B MP ####[facility] Najzvjisjp[address] [place], [place] [address]Dr. Shahbaz Rogel EGFR-AF FAROESE >60 Normal >=60 [facility] Comment on above: Performed By: #### B MP ####[facility] Hmsrkeleai[address] [place], [place] [address]Dr. Shahbaz Rogel EGFR-NON AF FAROESE >60 Normal >=60 [facility] Comment on above: Performed By: #### B MP ####[facility] Ncbtjonabr[address] [place], [place] [address]Dr. Shahbaz Rogel Glucose [Mass/Vol] 159 mg/dL Critically high 74-106 [facility] Comment on above: Performed By: #### B MP ####[facility] Tgrshtzttp[address] [place], [place] [address]Dr. Shahbaz Rogel Potassium [Moles/Vol] 3.5 mmol/L Normal 3.5-5.1 [facility] Comment on above: Performed By: #### B MP ####[facility] Dosjvuknal[address] [place], [place] [address]Dr. Shahbaz Rogel Sodium [Moles/Vol] 142 mmol/L Normal 136-145 [facility] Comment on above: Performed By: #### B MP ####[facility] Ciqcacioal[address] [place], [place] [address]Dr. Shahbaz Rogel Urea nitrogen [Mass/Vol] 21.0 mg/dL Critically high 7.0-18.0 [facility] Comment on above: Performed By: #### B MP ####[facility] Dtslpcbjkp[address] [place], [place] [address]Dr. Shahbaz Rogel Urea nitrogen/Creatinine [Mass ratio] 26.6 mg/mg Normal [facility] Comment on above: Performed By: #### B MP ####[facility] Byjrykrqju84[address] [place] [address]Dr. Shahbaz Rogel XR CHEST 2 Von 01-06-2023 XR CHEST 2 V Normal [facility] CBC AUTO DIFFon 01-05-2023 BASO # 0.0 103/ul Normal 0.0-0.1 [facility] Comment on above: Performed By: #### C BC ####[facility] Drhaozpyxt[address] [place], [place] [address]Dr. Shahbaz Rogel Basophils/100 WBC (Bld) 0.2 % Normal 0.2-2.0 [facility] Comment on above: Performed By: #### C BC ####[facility] Fcqrjskaym[address] [place], [place] [address]Dr. Shahbaz Rogel EO # 0.0 103/ul Normal 0.0-0.7 [facility] Comment on above: Performed By: #### C BC ####[facility] Byznlaespq[address] [place], [place] [address]Dr. Shahbaz Rogel Eosinophils/100 WBC (Bld) 0.0 % Critically low 0.9-7.0 [facility] Comment on above: Performed By: #### C BC ####[facility] Dnzcpmmgzk47350[address] [place], [place] [address]Dr. Shahbaz Rogel Erythrocyte distribution width (RBC) [Ratio] 13.6 % Normal 11.0-15.0 [facility] Comment on above: Performed By: #### C BC ####[facility] Bkqaombilv[address]24[address] [place], [place] [address]Dr. Shahbaz Rogel Hematocrit (Bld) [Volume fraction] 36.6 % Normal 36.0-48.0 [facility] Comment on above: Performed By: #### C BC ####[facility] Oyqefrynkg7[address] [place], [place] [address]Dr. Shahbaz Rogel Hemoglobin (Bld) [Mass/Vol] 11.6 g/dL Critically low 12.0-16.0 [facility] Comment on above: Performed By: #### C BC ####[facility] Fmnochvwka12[address] [place] [address]DrChen Shahbaz Rogel IG # 0.03 10e3/ul Normal 0.00-0.03 [facility] Comment on above: Performed By: #### C BC ####[facility] Nnmtrcsekc8[address] [place] [address]DrChen Rogel IG % 0.5 % Normal 0.0-0.5 [facility] Comment on above: Performed By: #### C BC ####[facility] Jmgbutijgo[address] [place], [place] [address]DrChen Rogel LYMPH # 0.6 103/ul Critically low 1.2-3.8 [facility] Comment on above: Performed By: #### C BC ####[facility] Jowmtkxrrw[address] [place], [place] [address]DrChen Rogel Lymphocytes/100 WBC (Bld) 10.7 % Critically low 20.5-60.0 [facility] Comment on above: Performed By: #### C BC ####[facility] Drinvxxaog[address] [place], [place] [address]DrChen Lilajarrod Rogel MANUAL DIFF REQ NO Normal [facility] Comment on above: Performed By: #### C BC ####[facility] Epkyhnxatt03[address] [place], [place] [address]DrChen Rogel MCH (RBC) [Entitic mass] 27.7 pg Normal 26.7-34.0 [facility] Comment on above: Performed By: #### C BC ####[facility] Pqmdlhmosp664[address] [place], [place] [address]DrChen Rogel MCHC (RBC) [Mass/Vol] 31.7 g/dL Normal 29.9-35.2 [facility] Comment on above: Performed By: #### C BC ####[facility] Ekkzxzosoc[address] [place], [place] [address]DrChen Rogel MCV (RBC) [Entitic vol] 87.4 fL Normal 81.0-99.0 [facility] Comment on above: Performed By: #### C BC ####[facility] Ideyrnrnrd[address] [place] [address]DrChen Sharpjarrod Juan F MONO # 0.1 103/ul Critically low 0.3-0.8 [facility] Comment on above: Performed By: #### C BC ####[facility] Htvezbrhnx028[address] [place] [address]DrChen Rogel Monocytes/100 WBC (Bld) 2.5 % Normal 1.7-12.0 [facility] Comment on above: Performed By: #### C BC ####[facility] Qlothhyjkl[address] [place], [place] [address]DrChen Sharpjarrod Juan F NEUT # 4.8 103/ul Normal 1.4-6.5 [facility] Comment on above: Performed By: #### C BC ####[facility] Ghibafhzzb[address] [place], [place] [address]DrChen Rogel Neutrophils/100 WBC (Bld) 86.1 % Critically high 43.0-75.0 [facility] Comment on above: Performed By: #### C BC ####[facility] Uwhdkozmdg[address] [place], [place] [address]DrChen Rogel Platelet mean volume (Bld) [Entitic vol] 10.0 fL Normal 9.5-13.5 [facility] Comment on above: Performed By: #### C BC ####[facility] Enhjlsqbfo413[address] [place], [place] [address]Dr. Shahbaz Rogel PLT 193 103/ul Normal 150-450 [facility] Comment on above: Performed By: #### C BC ####[facility] Pxzajysdzx[address] [place], [place] [address]DrChen Rogel RBC 4.19 106/ul Critically low 4.20-5.40 [facility] Comment on above: Performed By: #### C BC ####[facility] Ieryowhxcg9[address] [place], [place] [address]DrChen Rogel WBC 5.6 103/ul Normal 4.0-11.0 [facility] Comment on above: Performed By: #### C BC ####[facility] Fscfcfkher[address] [place] [address]Dr. Shahbaz Rogel PROF CHEM 8 (BAS METB)on Anion gap [Moles/Vol] 12.7 mmol/L Normal [facility] Comment on above: Performed By: #### B MP ####[facility] Ntqcpaunjh6[address] [place] [address]Dr. Shahbaz Rogel Calcium [Mass/Vol] 8.8 mg/dL Normal 8.5-10.1 [facility] Comment on above: Performed By: #### B MP ####[facility] Ssnhutywiv[address] [place], [place] [address]Dr. Shahbaz Rogel Chloride [Moles/Vol] 107 mmol/L Normal 98-107 [facility] Comment on above: Performed By: #### B MP ####[facility] Pgtcueqftd[address] [place], [place] [address]Dr. Shahbaz Rogel CO2 [Moles/Vol] 26.9 mmol/L Normal 21.0-32.0 [facility] Comment on above: Performed By: #### B MP ####[facility] Bkoxxopmya[address] [place], [place] [address]DrChen Rogel Creatinine [Mass/Vol] 0.81 mg/dL Normal 0.55-1.02 [facility] Comment on above: Performed By: #### B MP ####[facility] Fpusbeshrq4[address] [place] [address]Dr. Shahbaz Rogel EGFR-AF FAROESE >60 Normal >=60 [facility] Comment on above: Performed By: #### B MP ####[facility] Hjafvemlfu9[address] [place], [place] [address]Dr. Shahbaz Rogel EGFR-NON AF FAROESE >60 Normal >=60 [facility] Comment on above: Performed By: #### B MP ####[facility] [address] [place], [place] [address]Dr. Shahbaz Rogel Glucose [Mass/Vol] 144 mg/dL Critically high 74-106 T [facility] Comment on above: Performed By: #### B MP ####[facility] Dqocykoeqa[address] [place] [address]Dr. Lilajarrod Juan F Potassium [Moles/Vol] 3.6 mmol/L Normal 3.5-5.1 [facility] Comment on above: Performed By: #### B MP ####[facility] Mqiuiyvnht8343 [place] [address]Dr. Shahbaz Rogel Sodium [Moles/Vol] 143 mmol/L Normal 136-145 [facility] Comment on above: Performed By: #### B MP ####[facility] Lplsiouaza0121 [place] [address]Dr. Lialjarrod Juan F Urea nitrogen [Mass/Vol] 20.0 mg/dL Critically high 7.0-18.0 [facility] Comment on above: Performed By: #### B MP ####[facility] Ttwwzmbsot3202 [place] [address]Dr. Shahbaz Rogel Urea nitrogen/Creatinine [Mass ratio] 24.7 mg/mg Normal [facility] Comment on above: Performed By: #### B MP ####[facility] Odgondoxwa[address] [place] [address]Dr. Shahbaz Juan F CBC W MANUAL DIFFon 01-05-20 23 ATYPICAL LYMPH # Normal [facility] Comment on above: Performed By: #### C BCMAN ####[facility] Enwolbvrqb3643 [place] [address]Dr. Shahbaz Rogel ATYPICAL LYMPH % Normal [facility] Comment on above: Performed By: #### C BCMAN ####[facility] Sakpjztnyc5[address] [place] [address]Dr. Shahbaz Rogel BAND # 0.0 103/ul Normal 0.0-0.3 [facility] Comment on above: Performed By: #### C BCMAN ####[facility] Rzisfslwyi0555 [place] [address]Dr. Shahbaz Rogel BAND % 0 % Normal 0-5 [facility] Comment on above: Performed By: #### C BCMAN ####[facility] Qtjoynwemy7572 [place] [address]Dr. Shahbaz Rogel BASOM # 0.00 103/ul Normal 0.00-0.10 [facility] Comment on above: Performed By: #### C BCBRICE ####[facility] Slawncetom1370 [place] [address]Dr. Shahbaz Rogel BASOM % 0.0 % Critically low 0.2-2.0 [facility] Comment on above: Performed By: #### C BCBRICE ####[facility] Nzslsagcmk8822 [place] [address]Dr. Shahbaz Rogel BLAST # Normal [facility] Comment on above: Performed By: #### C CAIN ####[facility] Luvmnusvtp[address] [place], [place] [address]Dr. Shahbaz Rogel BLAST % Normal [facility] Comment on above: Performed By: #### C CAIN ####[facility] Pnogmepary[address] [place], [place] [address]Dr. Shahbaz Rogel CORRECTED WBC Normal 4.0-11.0 [facility] Comment on above: Performed By: #### C CAIN ####[facility] Iqojkqyjdy[address] [place], [place] [address]Dr. Shahbaz Rogel EOS # 0.00 103/ul Normal 0.00-0.70 [facility] Comment on above: Performed By: #### C CAIN ####[facility] Ttngbbdcof[address] [place], [place] [address]Dr. Shahbaz Rogel EOS% 0.0 % Critically low 0.9-7.0 [facility] Comment on above: Performed By: #### C CAIN ####[facility] Ksiajgzrdq[address] [place], [place] [address]Dr. Shahbaz Rogel HCT 36.5 % Normal 36.0-48.0 [facility] Comment on above: Performed By: #### C BCBRICE ####[facility] Kubptphlyz[address] [place], [place] [address]Dr. Shahbaz Rogel HGB 11.8 g/dl Critically low 12.0-16.0 [facility] Comment on above: Performed By: #### C CAIN ####[facility] Moiodstzhk7825 [place] [phone]. Shahbaz Rogel LYMPHM # 0.42 103/ul Critically low 1.20-3.80 [facility] Comment on above: Performed By: #### C CAIN ####[facility] Ftcqqjdzhx2029 [place] [phone]. Shahbaz Rogel LYMPHM% 12.0 % Critically low 20.5-60.0 [facility] Comment on above: Performed By: #### C CAIN ####[facility] Tohnmvyrzz5088 [place] [phone]. Shahbaz Rogel MCH 28.0 pg Normal 26.7-34.0 [facility] Comment on above: Performed By: #### C CAIN ####[facility] Zoerjpqqkv3770 [place] [address]Dr. Shahbaz Rogel MCHC 32.3 g/dl Normal 29.9-35.2 [facility] Comment on above: Performed By: #### C CAIN ####[facility] Gbcjmohkhi7934 [place] [address]Dr. Shahbaz Rogel MCV 86.7 fL Normal 81.0-99.0 [facility] Comment on above: Performed By: #### C CAIN ####[facility] Qmvndsrbtn9090 [place] [phone]. Shahbaz Rogel METAMYELOCYTE # Normal [facility] Comment on above: Performed By: #### C CAIN ####[facility] Qbsfzxggfb1913 [place] [phone]. Shahbaz Rogel METAMYELOCYTE % Normal [facility] Comment on above: Performed By: #### C CAIN ####[facility] Cpvpqqxsrj[address] [place], [place] [address]Dr. Shahbaz Rogel MONOM# 0.07 103/ul Critically low 0.30-0.80 [facility] Comment on above: Performed By: #### C CAIN ####[facility] Laaselfrop[address] [place], [place] [address]Dr. Shahbaz Rogel MONOM% 2.0 % Normal 1.7-12.0 [facility] Comment on above: Performed By: #### C CAIN ####[facility] Xcflhfjryu1169 [place] [address]Dr. Shahbaz Rogel MPV 9.9 fL Normal 9.5-13.5 [facility] Comment on above: Performed By: #### C CAIN ####[facility] Efqubhnhtc1462 [place] [phone]. Shahbaz Rogel MYELOCYTE # Normal [facility] Comment on above: Performed By: #### C CAIN ####[facility] Qjddaceyiz5582 [place] [phone]. Shahbaz Rogel MYELOCYTE % Normal [facility] Comment on above: Performed By: #### C CAIN ####[facility] Owquyhaqnn4452 [place] [address]Dr. Shahbaz Rogel NRBC Normal [facility] Comment on above: Performed By: #### C CAIN ####[facility] Riygcrcjzt33[address] [place], [place] [address]Dr. Shahbaz Rogel PLT 178 103/ul Normal 150-450 [facility] Comment on above: Performed By: #### C CAIN ####[facility] Mwzwybkqso[address] [place], [place] [address]Dr. Shahbaz Rogel RBC 4.21 106/ul Normal 4.20-5.40 [facility] Comment on above: Performed By: #### C CAIN ####[facility] Dawnlsslgu3751 [place] [phone]. Shahbaz Rogel RDW 13.2 % Normal 11.0-15.0 [facility] Comment on above: Performed By: #### C CAIN ####[facility] Ztrdvlrerb5296 [place] [address]Dr. Shahbaz Rogel SEG # 3.01 103/ul Normal 1.40-6.50 [facility] Comment on above: Performed By: #### C CAIN ####[facility] Vcmcjqqazp9[address] [place], [place] [address]Dr. Shahbaz Rogel SEG % 86.0 % Critically high 43.0-75.0 [facility] Comment on above: Performed By: #### C BCMAN ####[facility] Pujbjfyajj6246 [place] [address]Dr. Shahbaz Rogel WBC 3.5 103/ul Critically low 4.0-11.0 [facility] Comment on above: Performed By: #### C BCMAN ####[facility] Iastdbfsir232[address] [place], [place] [address]Dr. Shahbaz Rogel PROF CHEM 8 (BAS METB)on Anion gap [Moles/Vol] 10.5 mmol/L Normal [facility] Comment on above: Performed By: #### B MP ####[facility] Ktmzmgkihd85[address] [place], [place] [address]Dr. Shahbaz Rogel Calcium [Mass/Vol] 8.7 mg/dL Normal 8.5-10.1 [facility] Comment on above: Performed By: #### B MP ####[facility] Bmwpfbzdzd78[address] [place], [place] [address]Dr. Shahbaz Rogel Chloride [Moles/Vol] 108 mmol/L Critically high 98-107 [facility] Comment on above: Performed By: #### B MP ####[facility] Recfndndbn65[address] [place], [place] [address]Dr. Shahbaz Rogel CO2 [Moles/Vol] 25.2 mmol/L Normal 21.0-32.0 [facility] Comment on above: Performed By: #### B MP ####[facility] Ipjuyqutxq395[address] [place], [place] [address]Dr. Shahbaz Rogel Creatinine [Mass/Vol] 0.77 mg/dL Normal 0.55-1.02 [facility] Comment on above: Performed By: #### B MP ####[facility] Rtqvmlezwa[address] [place], [place] [address]Dr. Shahbaz Rogel EGFR-AF FAROESE >60 Normal >=60 [facility] Comment on above: Performed By: #### B MP ####[facility] Prjlprybfc[address] [place], [place] [address]Dr. Shahbaz Rogel EGFR-NON AF FAROESE >60 Normal >=60 [facility] Comment on above: Performed By: #### B MP ####[facility] Miiskdovqw514[address] [place], [place] [address]Dr. Lilajarrod Juan F Glucose [Mass/Vol] 169 mg/dL Critically high 74-106 T [facility] Comment on above: Performed By: #### B MP ####[facility] Tpqtqszcuc[address] [place], [place] [address]Dr. Lilajarrod Juan F Potassium [Moles/Vol] 3.7 mmol/L Normal 3.5-5.1 [facility] Comment on above: Performed By: #### B MP ####[facility] Wntzjmtugp966[address] [place], [place] [address]Dr. Shahbaz Rogel Sodium [Moles/Vol] 140 mmol/L Normal 136-145 [facility] Comment on above: Performed By: #### B MP ####[facility] Ljikigmdlo[address] [place], [place] [address]Dr. Lilajarrod Juan F Urea nitrogen [Mass/Vol] 14.0 mg/dL Normal 7.0-18.0 [facility] Comment on above: Performed By: #### B MP ####[facility] Vwjrkpwqsr68[address] [place], [place] [address]Dr. Lilajarrod Juan F Urea nitrogen/Creatinine [Mass ratio] 18.2 mg/mg Normal [facility] Comment on above: Performed By: #### B MP ####[facility] Ziafjxexua7[address] [place], [place] [address]Dr. Shahbaz Rogel RESPIRATORY PANEL PLUSon Adenovirus Not detected Normal NOT DETECTED [facility] Comment on above: Performed By: #### R SPLUS ####[facility] Kgacuebkti014[address] [place], [place] [address]Dr. Shahbaz Rogel B. Parapertusis Not detected Normal NOT DETECTED [facility] Comment on above: Performed By: #### R SPLUS ####[facility] Vrjuyjetyh[address] [place], [place] [address]Dr. Shahbaz Rogel B. Pertussis Not detected Normal NOT DETECTED [facility] Comment on above: Performed By: #### R SPLUS ####[facility] Foidncqsdv1137 [place] [address]Dr. Yijarrod Rogel Chlamydia Pneumoniae Not detected Normal NOT DETECTED [facility] Comment on above: Performed By: #### R SPLUS ####[facility] Ltlqxszvnd5179 [place] [address]Dr. Yijarrod Rogel Coronavirus 229E Not detected Normal NOT DETECTED [facility] Comment on above: Performed By: #### R SPLUS ####[facility] Gtbcaqljhj[address] [place], [place] [address]Dr. Yijarrod Rogel Coronavirus HKU1 Not detected Normal NOT DETECTED [facility] Comment on above: Performed By: #### R SPLUS ####[facility] Eozwjkslbd[address] [place], [place] [address]Dr. Shahbaz Rogel Coronavirus NL63 Not detected Normal NOT DETECTED [facility] Comment on above: Performed By: #### R SPLUS ####[facility] Kigspudkqa[address] [place], [place] [address]Dr. Yijarrod Rogel Coronavirus OC43 Not detected Normal NOT DETECTED [facility] Comment on above: Performed By: #### R SPLUS ####[facility] Jbshhymzlh[address] [place], [place] [address]Dr. Yilan Rogel Influenza A H1 Not detected Normal NOT DETECTED [facility] Comment on above: Performed By: #### R SPLUS ####[facility] Ovubojvjsn[address] [place], [place] [address]Dr. Yilan Rogel Influenza A H1 2009 Not detected Normal NOT DETECTED [facility] Comment on above: Performed By: #### R SPLUS ####[facility] Qedpqstofz[address] [place], [place] [address]Dr. Yilan Rogel Influenza A H3 Not detected Normal NOT DETECTED [facility] Comment on above: Performed By: #### R SPLUS ####[facility] Rczxjzhdvc[address] [place], [place] [address]Dr. Yilan Rogel Influenza B Not detected Normal NOT DETECTED [facility] Comment on above: Performed By: #### R SPLUS ####[facility] Zktajynpky[address] [place], [place] [address]Dr. Shahbaz Rogel Metapneumovirus Detected Abnormal NOT DETECTED [facility] Comment on above: Performed By: #### R SPLUS ####[facility] Viqruxefal0830 [place] [address]Dr. Shahbaz Rogel Mycoplas. Pneumoniae Not detected Normal NOT DETECTED [facility] Comment on above: Performed By: #### R SPLUS ####[facility] Fxwrhvyumr1092 [place] [address]Dr. Lilajarrod Rogel Parainfluenza 1 Not detected Normal NOT DETECTED [facility] Comment on above: Performed By: #### R SPLUS ####[facility] Pbvsfhhpar0449 [place] [address]Dr. Shahbaz Rogel Parainfluenza 2 Not detected Normal NOT DETECTED [facility] Comment on above: Performed By: #### R SPLUS ####[facility] Glkqoiybaj9960 [place] [address]Dr. Lilajarrod Rogel Parainfluenza 3 Not detected Normal NOT DETECTED [facility] Comment on above: Performed By: #### R SPLUS ####[facility] Hqqrkykifz7831 [place] [address]Dr. Shahbaz Rogel Parainfluenza 4 Not detected Normal NOT DETECTED [facility] Comment on above: Performed By: #### R SPLUS ####[facility] Scqozvnvkg5112 [place] [address]Dr. Shahbaz Rogel Rhino/Enterovirus Not detected Normal NOT DETECTED [facility] Comment on above: Performed By: #### R SPLUS ####[facility] Ecnoeywesz8756 [place] [address]Dr. Shahbaz Rogel RP2 Header 1 RESPIRATORY PANEL: VIRUSES Normal [facility] Comment on above: Performed By: #### R SPLUS ####[facility] Jdjbimpezj1908 [place] [address]Dr. Shahbaz Rogel RP2 Header 2 RESPIRATORY PANEL: BACTERIA Normal [facility] Comment on above: Performed By: #### R SPLUS ####[facility] Woepejtege2894 [place] [address]Dr. Shahbaz Rogel RSV Not detected Normal NOT DETECTED [facility] Comment on above: Performed By: #### R SPLUS ####[facility] Wtrwztuybc1496 [place] [address]Dr. Shahbaz Rogel SARS-CoV-2 (COVID-19) RNA PAVAN+probe Ql (Unsp spec) Not detected Normal NOT DETECTED [facility] Comment on above: Performed By: #### R SPLUS ####[facility] Zudiixxlds5522 [place] [address]Dr. Shahbaz Juan F CARDIAC ROSALINA 3-6on 3 CK [Catalytic activity/Vol] 148 U/L Normal 26-192 [facility] Comment on above: Performed By: #### C MREP ####[facility] Nuttyxhdvx8361 [place] [address]Dr. Shahbaz Juan F CK.MB [Mass/Vol] 0.84 ng/mL Normal <=3.60 [facility] Comment on above: Performed By: #### C MREP ####[facility] Mqbhanayzy77[address] [place], [place] [address]Dr. Shahbaz Rogel HSTROP 6.4 pg/mL Normal 4.0-51.3 [facility] Comment on above: Result Comment: CUT- OFF POINTS HAVE BEEN ESTABLISHED BASED ON THE FOURTH UNIVERSAL DEFINITIONS OF MYOCARDIALINFARCTION. THE UPPER REFERENCE LIMIT (URL) OF TROPONIN, DEFINED THE 99TH PERCENTILE OFcTnI DISTRIBUTION IN A REFERENCE POPULATION, HAS BEEN CONFIRMED THE DECISION THRESHOLDFOR [place] DIAGNOSIS. Performed By: #### C MREP ####[facility] Bexlxvyckk4508 [place] [address]Dr. Shahbaz Juan F CBC W MANUAL DIFFon 01-04-20 23 ATYPICAL LYMPH # Normal [facility] Comment on above: Performed By: #### C BCMAN ####[facility] Okrwgraeaq9261 [place] [address]Dr. Shahbaz Rogel ATYPICAL LYMPH % Normal [facility] Comment on above: Performed By: #### C BCMAN ####[facility] Uhmearqmxo8724 [place] [address]Dr. Yilan Rogel BAND # 0.0 103/ul Normal 0.0-0.3 [facility] Comment on above: Performed By: #### C BCMAN ####[facility] Hhcjkyytzf3918 [place] [address]Dr. Shahbaz Rogel BAND % 0 % Normal 0-5 [facility] Comment on above: Performed By: #### C BCMAN ####[facility] Aawefcgzew865[address] [place], [place] [address]Dr. Shahbaz Rogel BASOM # 0.00 103/ul Normal 0.00-0.10 [facility] Comment on above: Performed By: #### C BCBRICE ####[facility] Peohsfsqya493[address] [place], [place] [address]Dr. Shahbaz Rogel BASOM % 0.0 % Critically low 0.2-2.0 [facility] Comment on above: Performed By: #### C BCBRICE ####[facility] Ibfdxzmbtr698[address] [place], [place] [address]Dr. Shahbaz Rogel BLAST # Normal [facility] Comment on above: Performed By: #### C CAIN ####[facility] Dujcvvnaoe784[address] [place], [place] [address]Dr. Shahbaz Rogel BLAST % Normal [facility] Comment on above: Performed By: #### C BCBRICE ####[facility] Ggrzhkhcvu[address] [place], [place] [address]Dr. Shahbaz Rogel CORRECTED WBC Normal 4.0-11.0 [facility] Comment on above: Performed By: #### C BCBRICE ####[facility] Zacybxbhpu[address] [place], [place] [address]Dr. Shahbaz Rogel EOS # 0.02 103/ul Normal 0.00-0.70 [facility] Comment on above: Performed By: #### C BCBRICE ####[facility] Gadwbibaxh9[address] [place], [place] [address]Dr. Shahbaz Rogel EOS% 1.0 % Normal 0.9-7.0 [facility] Comment on above: Performed By: #### C BCBRICE ####[facility] Dgcsliktpv[address] [place], [place] [address]Dr. Shahbaz Rogel HCT 37.5 % Normal 36.0-48.0 [facility] Comment on above: Performed By: #### C CAIN ####[facility] Xuobsnemzw5559 [place] [id number]. Shahbaz Rogel HGB 12.0 g/dl Normal 12.0-16.0 [facility] Comment on above: Performed By: #### C CAIN ####[facility] Qampohynug2308 [place] [phone]. Shahbaz Rogel LYMPHM # 0.21 103/ul Critically low 1.20-3.80 [facility] Comment on above: Performed By: #### C CAIN ####[facility] Lidlxwifiu2515 [place] [address]Dr. Shahbaz Rogel LYMPHM% 13.0 % Critically low 20.5-60.0 [facility] Comment on above: Performed By: #### C CAIN ####[facility] Xxsvbvnczs5243 [place] [address]Dr. Shahbza Rogel MCH 27.8 pg Normal 26.7-34.0 [facility] Comment on above: Performed By: #### Cheri BARLOW ####[facility] Awggdcduai[address] [place], [place] [address]Dr. Shahbaz Rogel MCHC 32.0 g/dl Normal 29.9-35.2 [facility] Comment on above: Performed By: #### Cheri BARLOW ####[facility] Ialfwwesgr2831 [place] [address]Dr. Shahbaz Rogel MCV 86.8 fL Normal 81.0-99.0 [facility] Comment on above: Performed By: #### C CAIN ####[facility] Dggwdbbeir5778 [place] [id number]. Shahbaz Rogel METAMYELOCYTE # Normal [facility] Comment on above: Performed By: #### C CAIN ####[facility] Gisjeykqnc5584 [place] [phone]. Shahbaz Rogel METAMYELOCYTE % Normal [facility] Comment on above: Performed By: #### C CAIN ####[facility] Gghutxzxyy3223 [place] [phone]. Shahbaz Rogel MONOM# 0.02 103/ul Critically low 0.30-0.80 [facility] Comment on above: Performed By: #### C CAIN ####[facility] Xtwnmqbojj1400 [place] [phone]. Shahbaz Rogel MONOM% 1.0 % Critically low 1.7-12.0 [facility] Comment on above: Performed By: #### C CAIN ####[facility] Otwplqqhju7572 [place] [id number]. Shahbaz Rogel MPV 9.5 fL Normal 9.5-13.5 [facility] Comment on above: Performed By: #### C CAIN ####[facility] Aieiiaxghj4593 [place] [id number]. Shahbaz Rogel MYELOCYTE # Normal [facility] Comment on above: Performed By: #### Cheri BARLOW ####[facility] Oezgqrvrqh7440 [place] [phone]. Shahbaz Rogel MYELOCYTE % Normal [facility] Comment on above: Performed By: #### Cheri BARLOW ####[facility] Kyahoddwgz[address] [place], [place] [address]Dr. Shahbaz Rogel NRBC Normal [facility] Comment on above: Performed By: #### Cheri BARLOW ####[facility] Wfvrfrtdmv5546 [place] [phone]. Shahbaz Rogel PLT 173 103/ul Normal 150-450 [facility] Comment on above: Performed By: #### C CAIN ####[facility] Mlfqpgweef5465 [place] [phone]. Shahbaz Rogel RBC 4.32 106/ul Normal 4.20-5.40 [facility] Comment on above: Performed By: #### C CAIN ####[facility] Gdzxerpboo6499 [place] [phone]. Shahbaz Rogel RDW 13.1 % Normal 11.0-15.0 [facility] Comment on above: Performed By: #### Cheri BARLOW ####[facility] Abdrplvege8032 [place] [phone]. Shahbaz Rogel SEG # 1.36 103/ul Critically low 1.40-6.50 [facility] Comment on above: Performed By: #### C CAIN ####[facility] Wkgpbuhkyn3427 [place] [address]Dr. Shahbaz Juan F SEG % 85.0 % Critically high 43.0-75.0 [facility] Comment on above: Performed By: #### C CAIN ####[facility] Pqevvwcmgs2483 [place] [address]Dr. Shahbaz Juan F WBC 1.6 103/ul Critically low 4.0-11.0 [facility] Comment on above: Performed By: #### C CAIN ####[facility] Kgmuabjbpv[address] [place], [place] [address]Dr. Shahbaz Rogel CT CHEST WO CONon 01-03-2023 CT CHEST WO CON Normal [facility] ER URINE PROFILEon 3 Bilirubin Ql (U) Negative Normal NEGATIVE [facility] Comment on above: Performed By: #### E RUR ####[facility] Bvjzjcddyz209[address] [place], [place] [address]Dr. Shahbaz Rogel Clarity (U) CLEAR Normal CLEAR [facility] Comment on above: Performed By: #### E RUR ####[facility] Lfvfsqklsf06[address] [place], [place] [address]Dr. Shahbaz Rogel Color (U) LT. YELLOW Normal YELLOW [facility] Comment on above: Performed By: #### E RUR ####[facility] Wleyluahzi83[address] [place], [place] [address]Dr. Shahbaz Rogel ERUAHD A micrscopic examina tion will be performed if indicated. Normal [facility] Comment on above: Performed By: #### E RUR ####[facility] Lutdsedpay8[address] [place], [place] [address]Dr. Shahbaz Rogel Glucose Ql (U) Negative Normal NEGATIVE [facility] Comment on above: Performed By: #### E RUR ####[facility] Tofkznxwre6640 [place] [address]Dr. Shahbaz Rogel Hemoglobin Ql (U) Negative Normal NEGATIVE [facility] Comment on above: Performed By: #### E RUR ####[facility] Dieqwrbtcd27[address] [place], [place] [address]Dr. Shahbaz Rogel Ketones Ql (U) Negative Normal NEGATIVE [facility] Comment on above: Performed By: #### E RUR ####[facility] Rwzeabydun[address] [place], [place] [address]Dr. Shahbaz Rogel LEUKOCYTES Negative Normal NEGATIVE [facility] Comment on above: Performed By: #### E RUR ####[facility] Stjldgnyce[address] [place], [place] [address]Dr. Shahbaz Rogel Nitrite Ql (U) Negative Normal NEGATIVE [facility] Comment on above: Performed By: #### E RUR ####[facility] Sxsiumzuch845[address] [place], [place] [address]Dr. Shahbaz Rogel pH (U) 6.0 [pH] Normal 5-9 [facility] Comment on above: Performed By: #### E RUR ####[facility] Nwxokouysh144[address] [place], [place] [address]Dr. Shahbaz Rogel SPEC GRAVITY <=1.005 Abnormal 1.005-<=1. 025 [facility] Comment on above: Performed By: #### E RUR ####[facility] Rjtzqfczyp[address] [place], [place] [address]Dr. Shahbaz Rogel UA PROTEIN Negative Normal NEGATIVE/ TRACE [facility] Comment on above: Performed By: #### E RUR ####[facility] Dtgcvvkrbn293[address] [place], [place] [address]Dr. Shahbaz Rogel UR MICRO IND NOT INDICATED Normal [facility] Comment on above: Performed By: #### E RUR ####[facility] Ioefpkivvo529[address] [place], [place] [address]Dr. Shahbaz Rogel Urobilinogen Qn (U) 0.2 {Melida'U}/dL Normal 0.2 - 1. 0 [facility] Comment on above: Performed By: #### E RUR ####[facility] Qcqqbygyzk3899 [place] [address]Dr. Shahbaz Rogel LACTATE/LACTIC ACIDon 2022 Lactate [Moles/Vol] 1.5 mmol/L Normal 0.4-2.0 [facility] Comment on above: Performed By: #### L ACT ####[facility] Urjpblxkgn9077 [place] [address]Dr. Shahbaz Rogel PROF CHEM 8 (BAS METB)on Anion gap [Moles/Vol] 11.6 mmol/L Normal [facility] Comment on above: Performed By: #### B MP ####[facility] Bbqmbcyxyu[address] [place], [place] [address]Dr. Shahbaz Rogel Calcium [Mass/Vol] 8.1 mg/dL Critically low 8.5-10.1 [facility] Comment on above: Performed By: #### B MP ####[facility] Yvivobfaki[address] [place], [place] [address]Dr. Shahbaz Rogel Chloride [Moles/Vol] 109 mmol/L Critically high 98-107 [facility] Comment on above: Performed By: #### B MP ####[facility] Okrqxjowtb[address] [place], [place] [address]Dr. Shahbaz Rogel CO2 [Moles/Vol] 25.2 mmol/L Normal 21.0-32.0 [facility] Comment on above: Performed By: #### B MP ####[facility] Egdlhpqqzi[address] [place], [place] [address]Dr. Shahbaz Rogel Creatinine [Mass/Vol] 0.89 mg/dL Normal 0.55-1.02 [facility] Comment on above: Performed By: #### B MP ####[facility] Gdxcnyogyj[address] [place], [place] [address]Dr. Shahbaz Rogel EGFR-AF FAROESE >60 Normal >=60 [facility] Comment on above: Performed By: #### B MP ####[facility] Kfgnrvfyzg[address] [place], [place] [address]Dr. Shahbaz Rogel EGFR-NON AF FAROESE >60 Normal >=60 [facility] Comment on above: Performed By: #### B MP ####[facility] Mbwgfaisas4725 [place] [id number]. Shahbaz Rogel Glucose [Mass/Vol] 167 mg/dL Critically high 74-106 [facility] Comment on above: Performed By: #### B MP ####[facility] Sqefposlfz8174 [place] [phone]. Shahbaz Rogel Potassium [Moles/Vol] 3.8 mmol/L Normal 3.5-5.1 [facility] Comment on above: Performed By: #### B MP ####[facility] Nrikdovbem98[address] [place] [address]Dr. Shahbaz Rogel Sodium [Moles/Vol] 142 mmol/L Normal 136-145 [facility] Comment on above: Performed By: #### B MP ####[facility] Iwieoucwkm0587 [place] [address]Dr. Shahbaz Rogel Urea nitrogen [Mass/Vol] 9.0 mg/dL Normal 7.0-18.0 [facility] Comment on above: Performed By: #### B MP ####[facility] Sixfgbymby[address] [place], [place] [address]Dr. Shahbaz Rogel Urea nitrogen/Creatinine [Mass ratio] 10.1 mg/mg Normal [facility] Comment on above: Performed By: #### B MP ####[facility] Lalalhiorq7[address] [place] [address]Dr. Shahbaz Rogel CARDIAC ROSALINA ADMITon 023 CK [Catalytic activity/Vol] 173 U/L Normal 26-192 [facility] Comment on above: Performed By: #### C MADM, BMP ####[facility] Qcjlhhbtrc8749 [place] [id number]. Shahbaz Rogel CK.MB [Mass/Vol] 0.55 ng/mL Normal <=3.60 [facility] Comment on above: Performed By: #### C MADM, BMP ####[facility] Mrjvqrxvby0215 [place] [phone]. Shahbaz Rogel HSTROP 5.9 pg/mL Normal 4.0-51.3 [facility] Comment on above: Result Comment: CUT- OFF POINTS HAVE BEEN ESTABLISHED BASED ON THE FOURTH UNIVERSAL DEFINITIONS OF MYOCARDIALINFARCTION. THE UPPER REFERENCE LIMIT (URL) OF TROPONIN, DEFINED THE 99TH PERCENTILE OFcTnI DISTRIBUTION IN A REFERENCE POPULATION, HAS BEEN CONFIRMED THE DECISION THRESHOLDFOR MN DIAGNOSIS. Performed By: #### C EMILIO FALCON ####[facility] Vstbkjayqp7950 [place] [address]Dr. Shahbaz Rogel LEN 76 ng/mL Normal 9-82 [facility] Comment on above: Performed By: #### C EZEKIEL BMP ####[facility] Lkjamytwpw8547 [place] [address]Dr. Shahbaz Rogel CBC W MANUAL DIFFon 01-03-20 23 ATYPICAL LYMPH # Normal [facility] Comment on above: Performed By: #### Cheri BARLOW ####[facility] Niaykgoieb54[address] [place], [place] [address]Dr. Shahbaz Rogel ATYPICAL LYMPH % Normal [facility] Comment on above: Performed By: #### Cheri BARLOW ####[facility] Ulpifasimw84[address] [place] [address]Dr. Yilan Rogel BAND # Normal 0.0-0.3 [facility] Comment on above: Performed By: #### Cheri BARLOW ####[facility] Beyxduxdwv3572 [place] [address]Dr. Yilan Rogel BAND % Normal 0-5 [facility] Comment on above: Performed By: #### Cheri BARLOW ####[facility] Iasurirmab7849 [place] [address]Dr. Shahbaz Rogel BASOM # 0.00 103/ul Normal 0.00-0.10 [facility] Comment on above: Performed By: #### Cheri BARLOW ####[facility] Ihigifyszb[address] [place], [place] [address]Dr. Shahbaz Rogel BASOM % 0.0 % Critically low 0.2-2.0 [facility] Comment on above: Performed By: #### Cheri BARLOW ####[facility] Jeelxdpjot62[address] [place], [place] [address]Dr. Yilan Rogel BLAST # Normal [facility] Comment on above: Performed By: #### C CAIN ####[facility] Cscjdmmxds7010 [place] [phone]. Shahbaz Rogel BLAST % Normal [facility] Comment on above: Performed By: #### C CAIN ####[facility] Djtpccoemu1878 [place] [phone]. Shahbaz Rogel CORRECTED WBC Normal 4.0-11.0 [facility] Comment on above: Performed By: #### C CAIN ####[facility] Zvorgkuqfc4714 [place] [phone]. Shahbaz Rogel EOS # 0.03 103/ul Normal 0.00-0.70 [facility] Comment on above: Performed By: #### C CAIN ####[facility] Zbrpkcbsww4362 [place] [phone]. Shahbaz Rogel EOS% 1.0 % Normal 0.9-7.0 [facility] Comment on above: Performed By: #### C CAIN ####[facility] Omozqdoztw5627 [place] [phone]. Shahbaz Rogel HCT 42.8 % Normal 36.0-48.0 [facility] Comment on above: Performed By: #### C CAIN ####[facility] Gsxeeaawxw[address] [place], [place] [address]Dr. Shahbaz Rogel HGB 14.1 g/dl Normal 12.0-16.0 [facility] Comment on above: Performed By: #### C CAIN ####[facility] Fuheyroviy7142 [place] [phone]. Shahbaz Rogel LYMPHM # 0.64 103/ul Critically low 1.20-3.80 [facility] Comment on above: Performed By: #### C CAIN ####[facility] Fyekwlumgr7424 [place] [phone]. Shahbaz Rogel LYMPHM% 23.0 % Normal 20.5-60.0 [facility] Comment on above: Performed By: #### C CAIN ####[facility] Wmjtnbyjcc4047 [place], [place] [address]Sa. Shahbaz Rogel MCH 28.0 pg Normal 26.7-34.0 [facility] Comment on above: Performed By: #### C CAIN ####[facility] Xakgdxyimi2219 [place] [id number]. Shahbaz Rogel MCHC 32.9 g/dl Normal 29.9-35.2 [facility] Comment on above: Performed By: #### C CAIN ####[facility] Enqthhugtc1983 [place] [phone]. Shahbaz Rogel MCV 84.9 fL Normal 81.0-99.0 [facility] Comment on above: Performed By: #### C CAIN ####[facility] Pfojpqmgef2503 [place] [phone]. Shahbaz Rogel METAMYELOCYTE # Normal [facility] Comment on above: Performed By: #### C CAIN ####[facility] Nvjhdfdylz9037 [place] [phone]. Shahbaz Rogel METAMYELOCYTE % Normal [facility] Comment on above: Performed By: #### C CAIN ####[facility] Iknvvphhlr9630 [place] [phone]. Shahbaz Rogel MONOM# 0.31 103/ul Normal 0.30-0.80 [facility] Comment on above: Performed By: #### C CAIN ####[facility] Srdxbzhjjf[address] [place], [place] [phone]. Shahbaz Rogel MONOM% 11.0 % Normal 1.7-12.0 [facility] Comment on above: Performed By: #### C CAIN ####[facility] Shneslcnqq5007 [place] [id number]. Shahbaz Rogel MPV 9.5 fL Normal 9.5-13.5 [facility] Comment on above: Performed By: #### C CAIN ####[facility] Dtkdthktbp4491 [place] [phone]. Shahbaz Rogel MYELOCYTE # Normal [facility] Comment on above: Performed By: #### C CAIN ####[facility] Moipjiheak2082 [place], [place] [address]Jm. Shahbaz Rogel MYELOCYTE % Normal [facility] Comment on above: Performed By: #### C CAIN ####[facility] Ewwvibfxmt7140 [place] [phone]. Shahbaz Rogel NRBC Normal [facility] Comment on above: Performed By: #### C CAIN ####[facility] Qbezsnwaee5220 [place] [phone]. Shahbaz Rogel PLT 197 103/ul Normal 150-450 [facility] Comment on above: Performed By: #### C CAIN ####[facility] Gmyhqbtcko4790 [place] [phone]. Shahbaz Rogel RBC 5.04 106/ul Normal 4.20-5.40 [facility] Comment on above: Performed By: #### C CAIN ####[facility] Fnjujarrxt0941 [place] [phone]. Shahbaz Rogel RDW 13.2 % Normal 11.0-15.0 [facility] Comment on above: Performed By: #### C CAIN ####[facility] Msddtojxsq8979 [place] [phone]. Shahbaz Rogel SEG # 1.82 103/ul Normal 1.40-6.50 [facility] Comment on above: Performed By: #### C CAIN ####[facility] Ksosifmtwd8026 [place] [id number]. Shahbaz Rogel SEG % 65.0 % Normal 43.0-75.0 [facility] Comment on above: Performed By: #### C CAIN ####[facility] Ifmakvnmoe0055 [place] [phone]. Shahbaz Rogel WBC 2.8 103/ul Critically low 4.0-11.0 [facility] Comment on above: Performed By: #### C CAIN ####[facility] Mwpmkagoks8639 [place] [phone]. Shahbaz Rogel Covid-19 PCR ([facility])on SARS-CoV-2 (COVID-19) RNA PAVAN+probe Ql (Unsp spec) Not detected Normal NOT DETECTED [facility] Comment on above: Result Comment: When [...] for this test is supported by the President [employer] of Health and Human Service's declaration that [...] be used). Performed By: #### C VDTBH ####[facility] Exompmdcct[address] [place], [place] [address]Dr. Shahbaz Rogel D-DIMERon 01-02-2023 D-DIMER 0.38 mg/L FEU Normal <=0.59 [facility] Comment on above: Performed By: #### D DIM ####[facility] Ssyqcrglhl[address] [place], [place] [address]Dr. Shahbaz Rogel D-DIMER COMMENTS SEE BELOW Normal [facility] Comment on above: Result Comment: Incr [...] generalized hospitalization. Performed By: #### D DIM ####[facility] Tybnclkyhv214[address] [place], [place] [address]DrChen Rogel LACTATE/LACTIC ACIDon 2022 Lactate [Moles/Vol] 2.1 mmol/L Critically high 0.4-2.0 [facility] Comment on above: Performed By: #### L ACT ####[facility] Xjpdtytjid[address] [place], [place] [address]Dr. Shahbaz Rogel PROF CHEM 8 (BAS METB)on Anion gap [Moles/Vol] 14.3 mmol/L Normal [facility] Comment on above: Performed By: #### C EZEKIEL, BMP ####[facility] Kzdpziczhu[address] [place], [place] [address]Dr. Shahbaz Rogel Calcium [Mass/Vol] 9.0 mg/dL Normal 8.5-10.1 [facility] Comment on above: Performed By: #### C EZEKIEL, BMP ####[facility] Tfaqwtmhyu[address] [place], [place] [address]Dr. Shahbaz Rogel Chloride [Moles/Vol] 102 mmol/L Normal 98-107 [facility] Comment on above: Performed By: #### C EZEKIEL, BMP ####[facility] Vpjapfudye[address] [place], [place] [address]Dr. Shahbaz Rogel CO2 [Moles/Vol] 25.5 mmol/L Normal 21.0-32.0 [facility] Comment on above: Performed By: #### C EZEKIEL, BMP ####[facility] Ctltbkeqmd65[address] [place], [place] [address]Dr. Shahbaz Rogel Creatinine [Mass/Vol] 1.01 mg/dL Normal 0.55-1.02 [facility] Comment on above: Performed By: #### C EZEKIEL, BMP ####[facility] Dxwfeeusfs255[address] [place], [place] [address]Dr. Shahbaz Rogel EGFR-AF FAROESE >60 Normal >=60 [facility] Comment on above: Performed By: #### C EZEKIEL, BMP ####[facility] Pmptpkifhs37[address] [place], [place] [address]Dr. Shahbaz Rogel EGFR-NON AF FAROESE 56 mL/min/1.73m2 Critically low >=60 [facility] Comment on above: Performed By: #### C EZEKIEL, BMP ####[facility] Ypqrtfctss1575 [place] [address]Dr. Shahbaz Rogel Glucose [Mass/Vol] 105 mg/dL Normal 74-106 [facility] Comment on above: Performed By: #### C EZEKIEL, BMP ####[facility] Lqqbncmklo0718 [place] [address]Dr. Shahbaz Rogel Potassium [Moles/Vol] 3.8 mmol/L Normal 3.5-5.1 [facility] Comment on above: Performed By: #### Cheri FALCON, BMP ####[facility] Nevdortndp9176 [place] [address]Dr. Shahbaz Rogel Sodium [Moles/Vol] 138 mmol/L Normal 136-145 [facility] Comment on above: Performed By: #### Cheri FALCON, BMP ####[facility] Nbjvfdbxqx558[address] [place], [place] [address]Dr. Shahbaz Rogel Urea nitrogen [Mass/Vol] 9.0 mg/dL Normal 7.0-18.0 [facility] Comment on above: Performed By: #### C EZEKIEL, BMP ####[facility] Eyeucxbexe18[address] [place], [place] [address]Dr. Shahbaz Rogel Urea nitrogen/Creatinine [Mass ratio] 8.9 mg/mg Normal [facility] Comment on above: Performed By: #### Cheri FALCON, BMP ####[facility] Pwmjlbbdiv[address] [place], [place] [address]Dr. Shahbaz Juan F XR CHEST 1 Von 01-02-2023 XR CHEST 1 V Normal [facility] INSULINon 11-02-2022 Insulin 6.0 uIU/mL Normal 2.6-24.9 [facility] Comment on above: Performed By: #### I NSULIN ####[facility] Qlkozqbbvr[address] [place], [place] [address]Dr. Shahbaz Juan F CBC AUTO DIFFon 11-01-2022 BASO # 0.0 103/ul Normal 0.0-0.1 [facility] Comment on above: Performed By: #### C BC ####[facility] Wanutipcur[address] [place], [place] [address]Dr. Shahbaz Rogel Basophils/100 WBC (Bld) 0.5 % Normal 0.2-2.0 [facility] Comment on above: Performed By: #### C BC ####[facility] Cwemgxweem506[address] [place], [place] [address]Dr. Shahbaz Rogel EO # 0.2 103/ul Normal 0.0-0.7 [facility] Comment on above: Performed By: #### C BC ####[facility] Rmynmjvtew[address] [place], [place] [address]Dr. Shahbaz Rogel Eosinophils/100 WBC (Bld) 5.2 % Normal 0.9-7.0 [facility] Comment on above: Performed By: #### C BC ####[facility] Clubzphjnn057[address] [place], [place] [address]Dr. Shahbaz Rogel Erythrocyte distribution width (RBC) [Ratio] 12.7 % Normal 11.0-15.0 [facility] Comment on above: Performed By: #### C BC ####[facility] Gbqedauxqa109[address] [place], [place] [address]Dr. Shahbaz Rogel Hematocrit (Bld) [Volume fraction] 46.4 % Normal 36.0-48.0 [facility] Comment on above: Performed By: #### C BC ####[facility] Vtwrqbrzav[address] [place], [place] [address]Dr. Shahbaz Rogel Hemoglobin (Bld) [Mass/Vol] 14.9 g/dL Normal 12.0-16.0 [facility] Comment on above: Performed By: #### C BC ####[facility] Bmgchwpbym247[address] [place], [place] [address]Dr. Shahbaz Rogel IG # 0.00 10e3/ul Normal 0.00-0.03 [facility] Comment on above: Performed By: #### C BC ####[facility] Yaxlxkpono8[address] [place], [place] [address]Dr. Shahbaz Rogel IG % 0.0 % Normal 0.0-0.5 [facility] Comment on above: Performed By: #### C BC ####[facility] Aywqrugtoa3939 [place] [address]Dr. Shahbaz Juan F LYMPH # 1.1 103/ul Critically low 1.2-3.8 [facility] Comment on above: Performed By: #### C BC ####[facility] Uvwghhyqvt8455 [place] [address]Dr. Lilajarrod Rogel Lymphocytes/100 WBC (Bld) 25.5 % Normal 20.5-60.0 [facility] Comment on above: Performed By: #### C BC ####[facility] Vwalpsrhpa[address] [place], [place] [address]Dr. Lilajarrod Rogel MANUAL DIFF REQ NO Normal [facility] Comment on above: Performed By: #### C BC ####[facility] Kxxaxamyoh4716 [place] [address]Dr. Shahbaz Juan F MCH (RBC) [Entitic mass] 27.8 pg Normal 26.7-34.0 [facility] Comment on above: Performed By: #### C BC ####[facility] Czekcuoasp[address] [place], [place] [address]Dr. Shahbaz Juan F MCHC (RBC) [Mass/Vol] 32.1 g/dL Normal 29.9-35.2 [facility] Comment on above: Performed By: #### C BC ####[facility] Hnqcxczhbk63[address] [place], [place] [address]Dr. Shahbaz Rogel MCV (RBC) [Entitic vol] 86.6 fL Normal 81.0-99.0 [facility] Comment on above: Performed By: #### C BC ####[facility] Yfpvowqepd[address] [place], [place] [address]Dr. Shahbaz Rogel MONO # 0.2 103/ul Critically low 0.3-0.8 [facility] Comment on above: Performed By: #### C BC ####[facility] Srtmualiyr9[address] [place], [place] [address]Dr. Lilajarrod Rogel Monocytes/100 WBC (Bld) 5.4 % Normal 1.7-12.0 [facility] Comment on above: Performed By: #### C BC ####[facility] Lzorerwfxd475[address] [place], [place] [address]Dr. Shahbaz Rogel NEUT # 2.7 103/ul Normal 1.4-6.5 [facility] Comment on above: Performed By: #### C BC ####[facility] Ayvpwkwxkk6897 [place] [id number]. Shahbaz Rogel Neutrophils/100 WBC (Bld) 63.4 % Normal 43.0-75.0 [facility] Comment on above: Performed By: #### C BC ####[facility] Hbjwnucsya9880 [place] [address]Dr. Shahbaz Rogel Platelet mean volume (Bld) [Entitic vol] 9.4 fL Critically low 9.5-13.5 [facility] Comment on above: Performed By: #### C BC ####[facility] Afukuwgigr5152 [place] [address]Dr. Shahbaz Rogel PLT 216 103/ul Normal 150-450 [facility] Comment on above: Performed By: #### C BC ####[facility] Xofrdaigri9281 [place] [address]Dr. Shahbaz Rogel RBC 5.36 106/ul Normal 4.20-5.40 [facility] Comment on above: Performed By: #### C BC ####[facility] Bmklmnkzmy9709 [place] [address]Dr. Shahbaz Rogel WBC 4.2 103/ul Normal 4.0-11.0 [facility] Comment on above: Performed By: #### C BC ####[facility] Zaqqrcgcrr1279 [place] [id number]. Shahbaz Rogel FREE THYROXINE INDEX T7on FTI 2.92 Normal 1.30-4.50 [facility] Comment on above: Performed By: #### C MP, LIPID, T7, TSH ####[facility] Diqkzgqunm2048 [place] [address]Dr. Shahbaz Rogel T3U 37.0 % Normal 30.0-39.0 [facility] Comment on above: Performed By: #### C MP, LIPID, T7, TSH ####[facility] Bormedlvzg9746 [place] [address]Dr. Shahbaz Rogel T4 [Mass/Vol] 7.90 ug/dL Normal 4.80-13.90 [facility] Comment on above: Performed By: #### C MP, LIPID, T7, TSH ####[facility] Pzgjrpyzov5592 [place] [address]Dr. Shahbaz Rogel GLYCOHEMOGLOBIN A1Con 2022 ADA RECOMMENDATION SEE BELOW Normal [facility] Comment on above: Result Comment: ADA RECOMMENDED LIMIT 4.0 - 6.0 ADA THERAPEUTIC TARGET < 7.0 ACTION SUGGESTED > 7.0 Performed By: #### A 1C ####[facility] Ipobzbachl65[address] [place], [place] [address]Dr. Shahbaz Rogel Glucose [Mass/Vol] 120 mg/dL Normal [facility] Comment on above: Performed By: #### A 1C ####[facility] Zpletizxhb[address] [place], [place] [address]Dr. Shahbaz Rogel HbA1c (Bld) [Mass fraction] 5.8 % Normal 4.5-6.2 [facility] Comment on above: Performed By: #### A 1C ####[facility] Rtjccwlvhb[address] [place], [place] [address]Dr. Shahbaz Rogel IRONon 11-01-2022 Iron [Mass/Vol] 54.0 ug/dL Normal 50.0-170.0 [facility] Comment on above: Performed By: #### I GRIS ####[facility] Xyqirxuedl9[address] [place], [place] [address]Dr. Shahbaz Rogel LIPID PROFILEon 11-01-2022 CHOL-HDL RATIO NORM SEE BELOW Normal [facility] Comment on above: Result Comment: 3.3 - 4.4 LOW RISK 4.4 - 7.1 AVERAGE RISK 7.1 - 11.0 MODERATE RISK >11.0 HIGH RISK Performed By: #### C MP, LIPID, T7, TSH ####[facility] Ehzodooyhk[address] [place], [place] [address]Dr. Shahbaz Rogel Cholesterol [Mass/Vol] 203 mg/dL Critically high <=200 [facility] Comment on above: Performed By: #### C MP, LIPID, T7, TSH ####[facility] Augzrntpqv7468 [place] [id number]. Shahbaz Rogel Cholesterol in HDL [Mass/Vol] 42 mg/dL Normal 40-60 [facility] Comment on above: Performed By: #### C MP, LIPID, T7, TSH ####[facility] Kzkduxvmwa4310 [place] [id number]. Shahbaz Rogel Cholesterol in LDL [Mass/Vol] 121.4 mg/dL Normal [facility] Comment on above: Performed By: #### C MP, LIPID, T7, TSH ####[facility] Gblrnbsgwm4295 [place] [id number]. Shahbaz Rogel Cholesterol.total/Chol esterol in HDL [Mass ratio] 4.8 {ratio} Normal [facility] Comment on above: Performed By: #### C MP, LIPID, T7, TSH ####[facility] Kvcphbibmx2618 [place] [id number]. Shahbaz Rogel HDL NORMAL > or = 60 mg/dl - LO W CARDIOVASCULAR RISK <40 mg/dl - HIGH CARDIOVASCULAR RISK Normal [facility] Comment on above: Performed By: #### C MP, LIPID, T7, TSH ####[facility] Xenimcdegj4282 [place] [id number]. Shahbaz Rogel LDL CALC NORMAL SEE BELOW Normal [facility] Comment on above: Result Comment: <100 mg/dl OPTIMAL 100 - 129 mg/dl NEAR OR ABOVE OPTIMAL 130 - 159 mg/dl BORDERLINE HIGH 160 - 189 mg/dl HIGH >190 mg/dl VERY HIGH Performed By: #### C MP, LIPID, T7, TSH ####[facility] Xesglcfuxp2873 [place] [id number]. Shahbaz Rogel Triglyceride [Mass/Vol] 198 mg/dL Critically high <=150 [facility] Comment on above: Performed By: #### C MP, LIPID, T7, TSH ####[facility] Dgtmqwwgow5499 [place] [id number]. Shahbaz Rogel VLDL CALC 39.6 mg/dL Normal [facility] Comment on above: Performed By: #### C MP, LIPID, T7, TSH ####[facility] Gyojslgnqn1001 [place] [address]Dr. Shahbaz Rogel PROF 14(COMP METB)on 023 Albumin [Mass/Vol] 4.1 g/dL Normal 3.4-5.0 [facility] Comment on above: Performed By: #### C MP, LIPID, T7, TSH ####[facility] Rnwjmjyddo1879 [place] [address]Dr. Shahbaz Rogel Albumin/Globulin [Mass ratio] 1.0 {ratio} Normal [facility] Comment on above: Performed By: #### C MP, LIPID, T7, TSH ####[facility] Zjgrlquulw7045 [place] [address]Dr. Shahbaz Rogel ALP [Catalytic activity/Vol] 126 U/L Critically high 46-116 [facility] Comment on above: Performed By: #### C MP, LIPID, T7, TSH ####[facility] Fhesjhjgpi3737 [place] [address]Dr. Shahbaz Rogel ALT [Catalytic activity/Vol] 30 U/L Normal 14-59 [facility] Comment on above: Performed By: #### C MP, LIPID, T7, TSH ####[facility] Wrdijlpxlh3154 [place] [address]Dr. Shahbaz Rogel Anion gap [Moles/Vol] 12.3 mmol/L Normal [facility] Comment on above: Performed By: #### C MP, LIPID, T7, TSH ####[facility] Pleimtopja3649 [place] [address]Dr. Shahbaz Rogel AST [Catalytic activity/Vol] 25 U/L Normal 15-37 [facility] Comment on above: Performed By: #### C MP, LIPID, T7, TSH ####[facility] Emknjzkqdj9554 [place] [address]Dr. Shahbaz Rogel Bilirubin [Mass/Vol] 0.5 mg/dL Normal 0.2-1.0 [facility] Comment on above: Performed By: #### C MP, LIPID, T7, TSH ####[facility] Hmsqokprmr9874 [place] [address]Dr. Shahbaz Rogel Calcium [Mass/Vol] 9.4 mg/dL Normal 8.5-10.1 [facility] Comment on above: Performed By: #### C MP, LIPID, T7, TSH ####[facility] Zfpgmfdohf9894 [place] [address]Dr. Shahbaz Rogel Chloride [Moles/Vol] 104 mmol/L Normal 98-107 [facility] Comment on above: Performed By: #### C MP, LIPID, T7, TSH ####[facility] Pkhwgrtgsh6579 [place] [address]Dr. Shahbaz Rogel CO2 [Moles/Vol] 29.6 mmol/L Normal 21.0-32.0 [facility] Comment on above: Performed By: #### C MP, LIPID, T7, TSH ####[facility] Pyruybpmcd9864 [place] [address]Dr. Shahbaz Rogel Creatinine [Mass/Vol] 0.91 mg/dL Normal 0.55-1.02 [facility] Comment on above: Performed By: #### C MP, LIPID, T7, TSH ####[facility] Cwhoeiyzdw5063 [place] [address]Dr. Shahbaz Rogel EGFR-AF FAROESE >60 Normal >=60 [facility] Comment on above: Performed By: #### C MP, LIPID, T7, TSH ####[facility] Znwgesordh7858 [place] [address]Dr. Shahbaz Rogel EGFR-NON AF FAROESE >60 Normal >=60 [facility] Comment on above: Performed By: #### C MP, LIPID, T7, TSH ####[facility] Jwgmqmrshc8518 [place] [address]Dr. Shahbaz Rogel Globulin (S) [Mass/Vol] 4.0 g/dL Normal [facility] Comment on above: Performed By: #### C MP, LIPID, T7, TSH ####[facility] Idxvoavbsr7269 [place] [address]Dr. Shahbaz Rogel Glucose [Mass/Vol] 85 mg/dL Normal 74-106 [facility] Comment on above: Performed By: #### C MP, LIPID, T7, TSH ####[facility] Urpszfuxun34[address] [place] [address]Dr. Shahbaz Rogel Potassium [Moles/Vol] 3.9 mmol/L Normal 3.5-5.1 [facility] Comment on above: Performed By: #### C MP, LIPID, T7, TSH ####[facility] [address] [place] [address]Dr. Shahbaz Rogel Protein [Mass/Vol] 8.1 g/dL Normal 6.4-8.2 [facility] Comment on above: Performed By: #### C MP, LIPID, T7, TSH ####[facility] [address] [place] [address]Dr. Shahbaz Rogel Sodium [Moles/Vol] 142 mmol/L Normal 136-145 [facility] Comment on above: Performed By: #### C MP, LIPID, T7, TSH ####[facility] [address] [place] [address]Dr. Shahbaz Rogel Urea nitrogen [Mass/Vol] 9.0 mg/dL Normal 7.0-18.0 [facility] Comment on above: Performed By: #### C MP, LIPID, T7, TSH ####[facility] [address] [place] [address]Dr. Shahbaz Rogel Urea nitrogen/Creatinine [Mass ratio] 9.9 mg/mg Normal [facility] Comment on above: Performed By: #### C MP, LIPID, T7, TSH ####[facility] [address] [place] [address]Dr. Shahbaz Rogel TSHon 11-01-2022 TSH 0.045 uIU/mL Critically low 0.358-3.74 0 [facility] Comment on above: Performed By: #### C MP, LIPID, T7, TSH ####[facility] [address] [place] [address]Dr. Shahbaz Rogel XR HUMERUS LT MIN 2Von 10-01 XR HUMERUS LT MIN 2V Normal [facility] XR LSPINE 2_3 VIEWSon 2021 XR LSPINE 2_3 VIEWS Normal [facility] XR CHEST 1 Von 08-25-2022 XR CHEST 1 V Normal [facility] ACID FAST SMEAR AND CXon Acid Fast Culture Negative Normal [facility] Comment on above: Result Comment: No a ninfa fast bacilli isolated after 6 weeks. Performed By: #### A FB ####[facility] [address] [place], [place] [address]Tt. Shahbaz Rogel Acid Fast Smear Negative Normal [facility] Comment on above: Performed By: #### A FB ####[facility] [address] [place], [place] [address]Ku. Shahbaz Rogel [employer] Specimen Processing Concentration Normal [facility] Comment on above: Performed By: #### A FB ####[facility] [address] [place] [address]Dr. Shahbaz Rogel Bacteria identified Anaer cx Nom (Unsp spec)Ordered By: Rodolfo Harley on 08-13-2022 Anaerobic microbial culture No Anaerobes Isolated 3 Days [facility] Basophils Auto (Bld) [#/Vol] Ordered By: Rodolfo Harley on 08-12-2022 Basophils (Bld) [#/Vol] 0.0 10*3/uL 0.0-0.2 [facility] Basophils/100 WBC Auto (Bld) Ordered By: Rodolfo Harley on 08-12-2022 Basophils/100 WBC (Bld) 0.4 % . [facility] Creatinine and Glomerular fi ltration rate.predicted panel (S/P/Bld)Ordered By: Rodolfo Harley on 08-12-2022 Creatinine [Mass/Vol] 0.74 mg/dL 0.44-1.[address] [facility] Eosinophils Auto (Bld) [#/Vo l]Ordered By: Rodolfo Harley on 08-12-2022 Eosinophils (Bld) [#/Vol] 0.0 10*3/uL 0.0-0.45 [facility] Eosinophils/100 WBC Auto (Bl d)Ordered By: Rodolfo Harley on 08-12-2022 Eosinophils/100 WBC (Bld) 0.0 % . [facility] Erythrocyte distribution wid th Auto (RBC) [Ratio]Ordered By: Rodolfo Harley on 08-12-2022 Erythrocyte distribution width (RBC) [Ratio] 14.2 % 11.9-15.3 [facility] Estimated glomerular filtrat ion rate (GFR) non- AmericanOrdered By: Rodolfo Harley on 08-12-2022 GFR/1.73 sq M.predicted among non-blacks MDRD (S/P/Bld) [Vol rate/Area] > 60 mL/Min [facility] Hematocrit Auto (Bld) [Volum e fraction]Ordered By: Rodolfo Harley on 08-12-2022 Hematocrit (Bld) [Volume fraction] 38.0 % 34.0-46.4 [facility] Hemoglobin [Mass/volume] in BloodOrdered By: Rodolfo Harley 08-12-2022 Hemoglobin (Bld) [Mass/Vol] 12.5 g/dL 11.8-15.4 [facility] Laboratory - Hematology and Cell countsOrdered By: Rodolfo Harley on 08-12-2022 Nucleated RBC/100 WBC (Bld) [Ratio] 0.1 % 0-0.5 [facility] Leukocytes [#/volume] in Blo od by Automated countOrdered By: Rodolfo Harley on 08-12-2022 WBC (Bld) [#/Vol] 5.8 10*3/uL 4.5-11.0 [facility] Lymphocytes Auto (Bld) [#/Vo l]Ordered By: Rodolfo Harley on 08-12-2022 Lymphocytes (Bld) [#/Vol] 0.7 10*3/uL 1.00-4.8 [facility] Lymphocytes/100 WBC Auto (Bl d)Ordered By: Rodolfo Harley on 08-12-2022 Lymphocytes/100 WBC (Bld) 11.4 % . [facility] MCH Auto (RBC) [Entitic mass ]Ordered By: Rodolfo Harley on 08-12-2022 MCH (RBC) [Entitic mass] 28.1 pg 24.7-34.3 [facility] MCHC Auto (RBC) [Mass/Vol]Or dered By: Rodolfo Harley on 08-12-2022 MCHC (RBC) [Mass/Vol] 32.9 g/dL 32.0-35.[address] [facility] MCV Auto (RBC) [Entitic vol] Ordered By: Rodolfo Harley on 08-12-2022 MCV (RBC) [Entitic vol] 85.4 fL 80-100 [facility] Monocytes Auto (Bld) [#/Vol] Ordered By: Rodolfo Harley on 08-12-2022 Monocytes (Bld) [#/Vol] 0.3 10*3/uL 0.0-0.8 [facility] Monocytes/100 WBC Auto (Bld) Ordered By: Rodolfo Harley on 08-12-2022 Monocytes/100 WBC (Bld) 4.8 % . [facility] Neutrophils Auto (Bld) [#/Vo l]Ordered By: Rodolfo Harley on 08-12-2022 Neutrophils (Bld) [#/Vol] 4.8 10*3/uL 1.8-7.7 [facility] Neutrophils/100 WBC Auto (Bl d)Ordered By: Rodolfo Harley on 08-12-2022 Neutrophils/100 WBC (Bld) 83.4 % . [facility] No Panel InformationOrdered By: Rodolfo Harley on 08-12-2022 Estimated GFR () > 60 mL/Min [facility] Comment on above: GFR estimated refere nce range: According to KDOQI guidelines, <60 ml/min/1.73m2 is sufficient to diagnose a patient with chronic kidney disease. Pharmacy Creatinine Clearance (Chem 59.45 [facility] Platelet mean volume Auto (B ld) [Entitic vol]Ordered By: Rodolfo Harley on 08-12-2022 Platelet mean volume (Bld) [Entitic vol] 7.9 fL 6.3-10.7 [facility] Platelets Auto (Bld) [#/Vol] Ordered By: Rodolfo Harley on 08-12-2022 Platelets (Bld) [#/Vol] 196 10*3/uL 150-450 [facility] RBC Auto (Bld) [#/Vol]Ordere d By: Rodolfo Harley on 08-12-2022 RBC (Bld) [#/Vol] 4.45 10*6/uL 3.60-5.00 [facility] Serum or plasma anion gap de terminationOrdered By: Rodolfo Harley on 08-12-2022 Anion gap [Moles/Vol] 7.5 mmol/L 6.0-15.[address] [facility] Serum or plasma calcium dagoberto urement (mass/volume)Ordered By: Rodolfo Harley on 08-12-2022 Calcium [Mass/Vol] 8.7 mg/dL 8.2-10.2 [facility] Serum or plasma chloride anahy surement (moles/volume)Ordered By: Rodolfo Harley on 08-12-2022 Chloride [Moles/Vol] 108 mmol/L 95-114 [facility] Serum or plasma glucose dagoberto urement (mass/volume)Ordered By: Rodolfo Harley on 08-12-2022 Glucose [Mass/Vol] 133 mg/dL 70-100 [facility] Comment on above: ADA recommended refe rence rangeRandom Glucose Reference Range is dependent on time and content of last meal. Glucose of more than 200 mg/dL in a nonstressed, ambulatory subject supports the diagnosis of Diabetes Mellitus. Serum or plasma potassium me asurement (moles/volume)Ordered By: Rodolfo Harley on 08-12-2022 Potassium [Moles/Vol] 3.7 mmol/L 3.5-5.[address] [facility] Serum or plasma sodium measu rement (moles/volume)Ordered By: Rodolfo Harley on 08-12-2022 Sodium [Moles/Vol] 139 mmol/L 136-146 [facility] Serum or plasma total carbon dioxide measurement (moles/volume)Ordered By: Rodolfo Harley on 08-12-2022 CO2 [Moles/Vol] 27.2 mmol/L 22.0-30.0 [facility] Serum or plasma urea nitroge n measurement (mass/volume)Ordered By: Rodolfo Harley on 08-12-2022 Urea nitrogen [Mass/Vol] 14 mg/dL 9-23 [facility] ABO and Rh group post transf usion reaction Nom (Bld)Ordered By: Rodolfo Harley on 08-10-2022 Microscopic observation Gram stain Nom (Unsp spec) [facility] [employer] cultureOrdered By: Sissy Harley on 08-10-2022 Mycobacterium sp identified Org specific cx Nom (Unsp spec) [facility] [employer] smearOrdered By: Rodolfo Harley on 08-10-2022 Microscopic observation Smear Nom (Unsp spec) [facility] Aerobic cultureOrdered By: Margie Harley on 08-10-2022 Bacteria identified Aer cx Nom (Unsp spec) No Growth 2 Days [facility] Anaerobic cultureOrdered By: Rodolfo Harley on 08-10-2022 Bacteria identified Anaer cx Nom (Unsp spec) No Anaerobes Isolated 3 Days [facility] Arterial blood standard base excess determination by calculationOrdered By: Rodolfo Harley on 08-10-2022 Base excess standard Calc (BldA) [Moles/Vol] 5 mmol/L -2-3 [facility] Blood carbon dioxide, total measurement by calculation (moles/volume)Ordered By: Rodolfo Harley on 08-10-2022 CO2 Calc (Bld) [Moles/Vol] 30 mmol/L 23-[address] [facility] [address] biopsyOrdered By: Rodolfo Harley on 08-10-2022 Hematocrit (Bld) [Volume fraction] 40.0 % 38.0-51.0 [facility] Fungal cultureOrdered By: Rolanda Harley on 08-10-2022 Fungus identified Cx Nom (Unsp spec) [facility] Glucose Glucometer (BldC) [M ass/Vol]Ordered By: Rodolfo Harley on 08-10-2022 Glucose [Mass/Vol] 126 mg/dL 70-105 [facility] Gram stain for investigation of transfusion reactionOrdered By: Rodolfo Harley on 08-10-2022 Microscopic observation Gram stain Nom (Unsp spec) [facility] Hemoglobin Calc (Bld) [Mass/ Vol]Ordered By: Rodolfo Harley on 08-10-2022 Hemoglobin (Bld) [Mass/Vol] 13.6 g/dL 12.0-17.0 [facility] Monocyte %Ordered By: Jean Harley on 08-10-2022 Monocyte % 39.9 mm[Hg] 35-51 [facility] Monocyte % 45 mm[Hg] 80-105 [facility] No Panel InformationOrdered By: Rodolfo Harley on 08-10-2022 Chlamydia psittaci Antibodies <1:10 Neg:<1:10 [facility] Comment on above: This test was develo ped and its performance characteristicsdetermined by [facility]. It has not been cleared or approvedby the Food and Drug Administration. The FDA hasdetermined that such clearance or approval is notnecessary.Performed at: [address] [id number] Director: Shelly Vargas MD, Phone: [phone] Potassium (Bld) [Moles/Vol]O rdered By: Rodolfo Harley on 08-10-2022 Potassium [Moles/Vol] 3.8 mmol/L 3.5-4.[address] [facility] Sodium (Bld) [Moles/Vol]Orde red By: Rodolfo Harley on 08-10-2022 Sodium [Moles/Vol] 141 mmol/L 138-146 [facility] Whole blood bicarbonate dagoberto urementOrdered By: Rodolfo Harley on 08-10-2022 HCO3 (Bld) [Moles/Vol] 29.1 mmol/L 22.0-28.0 [facility] Whole blood ionized calcium measurement (moles/volume)Ordered By: Rodolfo Harley on 08-10-2022 Calcium.ionized (Bld) [Moles/Vol] 1280 mmol/L 1.12-1.32 [facility] Whole blood oxygen saturatio n measurementOrdered By: Rodolfo Harley on 08-10-2022 Oxygen saturation in Blood 84 % 95-98 [facility] Comment on above: Reference ranges ref lect baseline specimens only Whole blood pHOrdered By: Rolanda Harley on 08-10-2022 pH (Bld) 7.470 Units 7.31-7.45 [facility] Urine culture routineOrdered By: Rodolfo Harley on 08-07-2022 Bacteria identified Cx Nom (U) 2 Days [facility] Activated partial thrombopla stin time (aPTT) in platelet poor plasma by coagulation aOrdered By: Rodolfo Harley on 08-05-2022 aPTT Coag (PPP) [Time] 35.9 s 25.1-36.5 [facility] [place] Basophils Auto (Bld) [#/Vol] Ordered By: Rodolfo Harley on 08-05-2022 Basophils (Bld) [#/Vol] 0.0 10*3/uL 0.0-0.2 [facility] Basophils/100 WBC Auto (Bld) Ordered By: Rodolfo Harley on 08-05-2022 Basophils/100 WBC (Bld) 0.5 % . [facility] Body fluid albumin measureme nt (mass/volume)Ordered By: Rodolfo Harley on 08-05-2022 Albumin (Body fld) [Mass/Vol] 3.8 g/dL 3.2-5.5 [facility] COVID-19 Positive/NegativeOr dered By: Rodolfo Harley on 08-05-2022 SARS-CoV-2 (COVID-19) N gene PAVAN+probe Ql (Resp) Negative Negative [facility] Comment on above: Testing for SARS-CoV -2 by RT-PCRThis test was developed and its performance characteristics determined by [employer] and validated at the [facility]. This test has not been FDA [...] on 08-05-2022 Creatinine [Mass/Vol] 0.97 mg/dL 0.44-1.[address] [facility] Eosinophils Auto (Bld) [#/Vo l]Ordered By: Rodolfo Harley on 08-05-2022 Eosinophils (Bld) [#/Vol] 0.2 10*3/uL 0.0-0.45 [facility] Eosinophils/100 WBC Auto (Bl d)Ordered By: Rodolfo Harley on 08-05-2022 Eosinophils/100 WBC (Bld) 4.9 % . [facility] Erythrocyte distribution wid th Auto (RBC) [Ratio]Ordered By: Rodolfo Harley on 08-05-2022 Erythrocyte distribution width (RBC) [Ratio] 14.5 % 11.9-15.3 [facility] Estimated glomerular filtrat ion rate (GFR) non- AmericanOrdered By: Rodolfo Harley on 08-05-2022 GFR/1.73 sq M.predicted among non-blacks MDRD (S/P/Bld) [Vol rate/Area] 59 mL/Min [facility] FUNGAL CULTUREon 08-05-2022 Fungus (Mycology) Culture Final report Abnormal [facility] Comment on above: Performed By: #### C XFUN ####[facility] [address] [place] [address]Dr. Shahbaz Rogel Fungus Stain Final report Normal [facility] Comment on above: Performed By: #### C XFUN ####[facility] [address] [place] [address]Dr. Shahbaz Rogel Result 1 Comment Abnormal [facility] Comment on above: Result Comment: MILADYS/ Calcofluor preparation: no fungus observed. Performed By: #### C XFUN ####[facility] [address] [place] [address]Dr. Shahbaz Rogel Result Comment: Aspe rgillus versicolor Result 2 Penicillium species Abnormal [facility] Comment on above: Performed By: #### C XFUN ####[facility] [address] [place] [address]DrChen Rogel Globulin Calc (S) [Mass/Vol] Ordered By: Rodolfo Harley on 08-05-2022 Globulin (S) [Mass/Vol] 2.9 g/dL [facility] Hematocrit Auto (Bld) [Volum e fraction]Ordered By: Rodolfo Harley on 08-05-2022 Hematocrit (Bld) [Volume fraction] 43.3 % 34.0-46.4 [facility] Hemoglobin [Mass/volume] in BloodOrdered By: Rodolfo Harley on 08-05-2022 Hemoglobin (Bld) [Mass/Vol] 14.3 g/dL 11.8-15.4 [facility] Laboratory - CoagulationOrde red By: Rodolfo Harley on 08-05-2022 PT Coag (PPP) [Time] 12.4 s 9.0-12.9 [facility] Laboratory - Hematology and Cell countsOrdered By: Rodolfo Harley on 08-05-2022 Nucleated RBC/100 WBC (Bld) [Ratio] 0.0 % 0-0.5 [facility] Leukocytes [#/volume] in Blo od by Automated countOrdered By: Rodolfo Harley on 08-05-2022 WBC (Bld) [#/Vol] 3.4 10*3/uL 4.5-11.0 [facility] Lymphocytes Auto (Bld) [#/Vo l]Ordered By: Rodolfo Harley on 08-05-2022 Lymphocytes (Bld) [#/Vol] 0.9 10*3/uL 1.00-4.8 [facility] Lymphocytes/100 WBC Auto (Bl d)Ordered By: Rodolfo Harley on 08-05-2022 Lymphocytes/100 WBC (Bld) 27.2 % . [facility] MCH Auto (RBC) [Entitic mass ]Ordered By: Rodolfo Harley on 08-05-2022 MCH (RBC) [Entitic mass] 28.4 pg 24.7-34.3 [facility] MCHC Auto (RBC) [Mass/Vol]Or dered By: Rodolfo Harley on 08-05-2022 MCHC (RBC) [Mass/Vol] 33.1 g/dL 32.0-35.[address] [facility] MCV Auto (RBC) [Entitic vol] Ordered By: Rodolfo Harley on 08-05-2022 MCV (RBC) [Entitic vol] 85.9 fL 80-100 [facility] Monocytes Auto (Bld) [#/Vol] Ordered By: Rodolfo Harley on 08-05-2022 Monocytes (Bld) [#/Vol] 0.3 10*3/uL 0.0-0.8 [facility] Monocytes/100 WBC Auto (Bld) Ordered By: Rodolfo Harley on 08-05-2022 Monocytes/100 WBC (Bld) 7.5 % . [facility] Neutrophils Auto (Bld) [#/Vo l]Ordered By: Rodolfo Harley on 08-05-2022 Neutrophils (Bld) [#/Vol] 2.0 10*3/uL 1.8-7.7 [facility] Neutrophils/100 WBC Auto (Bl d)Ordered By: Rodolfo Harley on 08-05-2022 Neutrophils/100 WBC (Bld) 59.9 % . [facility] No Panel InformationOrdered By: Rodolfo Harley on 08-05-2022 Estimated GFR () > 60 mL/Min [facility] Comment on above: GFR estimated refere nce range: According to KDOQI guidelines, <60 ml/min/1.73m2 is sufficient to diagnose a patient with chronic kidney disease. Pharmacy Creatinine Clearance (Chem N/A [facility] Platelet mean volume Auto (B ld) [Entitic vol]Ordered By: Rodolfo Harley on 08-05-2022 Platelet mean volume (Bld) [Entitic vol] 8.1 fL 6.3-10.7 [facility] Platelet poor plasma interna tional normalized ratio (INR) by coagulation assay (relatOrdered By: Rodolfo Harley on 08-05-2022 INR Coag (PPP) [Relative time] 1.1 {INR} [facility] Comment on above: INR Therapeutic Rang [...] 08-05-2022 Platelets (Bld) [#/Vol] 243 10*3/uL 150-450 [facility] Protein [Mass/volume] in Ser um or PlasmaOrdered By: Rodolfo Harley on 08-05-2022 Protein [Mass/Vol] 6.7 g/dL 6.1-7.9 [facility] RBC Auto (Bld) [#/Vol]Ordere d By: Rodolfo Harley on 08-05-2022 RBC (Bld) [#/Vol] 5.04 10*6/uL 3.60-5.00 [facility] Serum or plasma alanine snyder otransferase measurement without P-5'-P (enzymatic activiOrdered By: Rodolfo Harley on 08-05-2022 ALT No additional P-5'-P [Catalytic activity/Vol] 14 U/L 10-60 [facility] Serum or plasma albumin/glob ulin mass ratioOrdered By: Rdoolfo Harley on 08-05-2022 Albumin/Globulin [Mass ratio] 1.3 {ratio} [facility] Serum or plasma alkaline sruthi sphatase measurement (enzymatic activity/volume)Ordered By: Rodolfo Harley on 08-05-2022 ALP [Catalytic activity/Vol] 91 U/L 32-92 [facility] Serum or plasma anion gap de terminationOrdered By: Rodolfo Harley on 08-05-2022 Anion gap [Moles/Vol] 14.3 mmol/L 6.0-15.0 [facility] Serum or plasma aspartate am inotransferase measurement (enzymatic activity/volume)Ordered By: Rodolfo Harley on 08-05-2022 AST [Catalytic activity/Vol] 21 U/L 10-42 [facility] Serum or plasma calcium dagoberto urement (mass/volume)Ordered By: Rodolfo Harley on 08-05-2022 Calcium [Mass/Vol] 9.5 mg/dL 8.2-10.2 [facility] Serum or plasma chloride anahy surement (moles/volume)Ordered By: Rodolfo Harley on 08-05-2022 Chloride [Moles/Vol] 102 mmol/L 95-114 [facility] Serum or plasma glucose dagoberto urement (mass/volume)Ordered By: Rodolfo Harley on 08-05-2022 Glucose [Mass/Vol] 76 mg/dL 70-100 [facility] Comment on above: ADA recommended refe rence rangeRandom Glucose Reference Range is dependent on time and content of last meal. Glucose of more than 200 mg/dL in a nonstressed, ambulatory subject supports the diagnosis of Diabetes Mellitus. Serum or plasma potassium me asurement (moles/volume)Ordered By: Rodolfo Harley on 08-05-2022 Potassium [Moles/Vol] 3.8 mmol/L 3.5-5.[address] [facility] Serum or plasma sodium measu rement (moles/volume)Ordered By: Rodolfo Harley on 08-05-2022 Sodium [Moles/Vol] 138 mmol/L 136-146 [facility] Serum or plasma total biliru bin measurement (mass/volume)Ordered By: Rodolfo Harley on 08-05-2022 Bilirubin [Mass/Vol] 0.7 mg/dL 0.3-1.2 [facility] Serum or plasma total carbon dioxide measurement (moles/volume)Ordered By: Rodolfo Harley on 08-05-2022 CO2 [Moles/Vol] 25.5 mmol/L 22.0-30.0 [facility] Serum or plasma urea nitroge n measurement (mass/volume)Ordered By: Rodolfo Harley on 08-05-2022 Urea nitrogen [Mass/Vol] 12 mg/dL - [facility] Urine culture routineOrdered By: Rodolfo Harley on 08-05-2022 Bacteria identified Cx Nom (U) 2 Days [facility] XR ANKLE LT MIN 3 Von 2021 XR ANKLE LT MIN 3 V Normal [facility] BNPon 07-06-2022 Natriuretic peptide B (Bld) [Mass/Vol] 843.0 pg/mL Normal <=900.0 [facility] Comment on above: Performed By: #### B DESPATCH CLERK, CRP, CMP ####[facility] [address] [place], [place] [address]VnChen Rogel CBC W MANUAL DIFFon 07-06-20 22 ATYPICAL LYMPH # Normal [facility] Comment on above: Performed By: #### C BCMAN ####[facility] [address] [place] [address]Dr. Shahbaz Rogel ATYPICAL LYMPH % Normal [facility] Comment on above: Performed By: #### C BCMAN ####[facility] [address] [place] [address]Dr. Yilan Rogel BAND # 0.0 103/ul Normal 0.0-0.3 [facility] Comment on above: Performed By: #### C BCMAN ####[facility] [address] [place] [address]Dr. Yilan Rogel BAND % 0 % Normal 0-5 [facility] Comment on above: Performed By: #### C BCMAN ####[facility] [address] [place], [place] [address]Dr. Yijarrod Rogel BASOM # 0.00 103/ul Normal 0.00-0.10 [facility] Comment on above: Performed By: #### C BCBRICE ####[facility] [address] [place], [place] [address]Dr. Shahbaz Rogel BASOM % 0.0 % Critically low 0.2-2.0 [facility] Comment on above: Performed By: #### C BCBRICE ####[facility] [address] [place], [place] [address]Dr. Yilan Rogel BLAST # Normal [facility] Comment on above: Performed By: #### C BCBRICE ####[facility] [address] [place], [place] [address]Dr. Shahbaz Rogel BLAST % Normal [facility] Comment on above: Performed By: #### C BCMAN ####[facility] [address] [place], [place] [address]Dr. Shahbaz Rogel CORRECTED WBC Normal 4.0-11.0 [facility] Comment on above: Performed By: #### C BCMAN ####[facility] [address] [place], [place] [address]Dr. Yijarrod Rogel EOS # 0.00 103/ul Normal 0.00-0.70 [facility] Comment on above: Performed By: #### C BCMAN ####[facility] [address] [place], [place] [id number]. Shahbaz Rogel EOS% 0.0 % Critically low 0.9-7.0 [facility] Comment on above: Performed By: #### C CAIN ####[facility] [address] [place] [id number]. Shahbaz Rogel HCT 40.3 % Normal 36.0-48.0 [facility] Comment on above: Performed By: #### C CAIN ####[facility] [address] [place] [id number]. Shahbaz Rogel HGB 12.7 g/dl Normal 12.0-16.0 [facility] Comment on above: Performed By: #### C CAIN ####[facility] [address] [place] [address]Dr. Shahbaz Rogel LYMPHM # 0.41 103/ul Critically low 1.20-3.80 [facility] Comment on above: Performed By: #### C CAIN ####[facility] [address] [place] [address]Dr. Shahbaz Rogel LYMPHM% 7.0 % Critically low 20.5-60.0 [facility] Comment on above: Performed By: #### Cheri BARLOW ####[facility] [address] [place] [address]Dr. Shahbaz Rogel MCH 28.0 pg Normal 26.7-34.0 [facility] Comment on above: Performed By: #### C CAIN ####[facility] [address] [place] [id number]. Shahbaz Rogel MCHC 31.5 g/dl Normal 29.9-35.2 [facility] Comment on above: Performed By: #### C CAIN ####[facility] [address] [place] [address]Dr. Shahbaz Rogel MCV 89.0 fL Normal 81.0-99.0 [facility] Comment on above: Performed By: #### C CAIN ####[facility] [address] [place], [place] [address]Dr. Shahbaz Rogel METAMYELOCYTE # Normal [facility] Comment on above: Performed By: #### C CAIN ####[facility] [address] [place] [id number]. Shahbaz Rogel METAMYELOCYTE % Normal [facility] Comment on above: Performed By: #### C CAIN ####[facility] [address] [place] [id number]. Shahbaz Rogel MONOM# 0.00 103/ul Critically low 0.30-0.80 [facility] Comment on above: Performed By: #### C CAIN ####[facility] [address] [place] [id number]. Shahbaz Rogel MONOM% 0.0 % Critically low 1.7-12.0 [facility] Comment on above: Performed By: #### C CAIN ####[facility] [address] [place] [id number]. Shahbaz Rogel MPV 9.8 fL Normal 9.5-13.5 [facility] Comment on above: Performed By: #### C CAIN ####[facility] [address] [place] [id number]. Shahbaz Rogel MYELOCYTE # Normal [facility] [facility] Comment on above: Performed By: #### C CAIN ####[facility] Djzwrlubrd[address] [place] [id number]. Shahbaz Rogel MYELOCYTE % Normal [facility] Comment on above: Performed By: #### C CAIN ####[facility] Qkouitiwom[address] [place], [place] [id number]. Shahbaz Rogel NRBC Normal [facility] Comment on above: Performed By: #### C CAIN ####[facility] Eejvkqxmxg[address] [place] [id number]. Shahbaz Rogel PLT 187 103/ul Normal 150-450 [facility] Comment on above: Performed By: #### C CAIN ####[facility] Zpwlcvizkx8[address] [place] [phone]. Shahbaz Rogel RBC 4.53 106/ul Normal 4.20-5.40 [facility] Comment on above: Performed By: #### C CAIN ####[facility] Vwmgkgubnp[address] [place] [id number]. Shahbaz Rogel RDW 13.3 % Normal 11.0-15.0 [facility] Comment on above: Performed By: #### C CIAN ####[facility] Furkkvdyeq[address] [place] [id number]. Lilajarrod Rogel SEG # 5.49 103/ul Normal 1.40-6.50 [facility] Comment on above: Performed By: #### C CAIN ####[facility] Yqporsbide[address] [place] [id number]. Lilajarrod Juan F SEG % 93.0 % Critically high 43.0-75.0 [facility] Comment on above: Performed By: #### C CAIN ####[facility] Hjdtvpsjic[address] [place] [address]Dr. Shahbaz Rogel WBC 5.9 103/ul Normal 4.0-11.0 [facility] Comment on above: Performed By: #### C CAIN ####[facility] Rlcuhsyyzd040[address] [place] [address]Dr. Shahbaz Rogel CRPon 07-06-2022 CRP [Mass/Vol] mg/L Normal <=1.0 [facility] Comment on above: Performed By: #### B DESPATCH CLERK, CRP, CMP ####[facility] Uahtztoscy[address] [place] [address]Dr. Shahbaz Rogel PROF 14(COMP METB)on 022 Albumin [Mass/Vol] 3.4 g/dL Normal 3.4-5.0 [facility] Comment on above: Performed By: #### B DESPATCH CLERK, CRP, CMP ####[facility] Jeguzvufgo[address] [place] [address]Dr. Shahbaz Rogel Albumin/Globulin [Mass ratio] 1.0 {ratio} Normal [facility] Comment on above: Performed By: #### B DESPATCH CLERK, CRP, CMP ####[facility] Mzbvtzepbc[address] [place] [address]Dr. Shahbaz Rogel ALP [Catalytic activity/Vol] 92 U/L Normal 46-116 [facility] Comment on above: Performed By: #### B DESPATCH CLERK, CRP, CMP ####[facility] Cszbhabkjz45[address] [place] [address]Dr. Shahbaz Rogel ALT [Catalytic activity/Vol] 21 U/L Normal 14-59 [facility] Comment on above: Performed By: #### B DESPATCH CLERK, CRP, CMP ####[facility] Ihwvaezayk99[address] [place] [address]Dr. Shahbaz Rogel Anion gap [Moles/Vol] 13.4 mmol/L Normal [facility] Comment on above: Performed By: #### B DESPATCH CLERK, CRP, CMP ####[facility] Zvaolvghki[address] [place], [place] [address]Dr. Shahbaz Rogel AST [Catalytic activity/Vol] 16 U/L Normal 15-37 [facility] Comment on above: Performed By: #### B DESPATCH CLERK, CRP, CMP ####[facility] Krzdkbpbgl04[address] [place], [place] [address]Dr. Shahbaz Rogel Bilirubin [Mass/Vol] 0.2 mg/dL Normal 0.2-1.0 [facility] Comment on above: Performed By: #### B DESPATCH CLERK, CRP, CMP ####[facility] Bvsinfeiuh05[address] [place], [place] [address]Dr. Shahbaz Rogel Calcium [Mass/Vol] 9.3 mg/dL Normal 8.5-10.1 [facility] Comment on above: Performed By: #### B DESPATCH CLERK, CRP, CMP ####[facility] Bhgwqmttel27[address] [place], [place] [address]Dr. Shahbaz Rogel Chloride [Moles/Vol] 105 mmol/L Normal 98-107 [facility] Comment on above: Performed By: #### B DESPATCH CLERK, CRP, CMP ####[facility] Hvlzordsba34[address] [place], [place] [address]Dr. Shahbaz Rogel CO2 [Moles/Vol] 23.2 mmol/L Normal 21.0-32.0 [facility] Comment on above: Performed By: #### B DESPATCH CLERK, CRP, CMP ####[facility] Gntiyvfnkj364[address] [place], [place] [address]Dr. Shahbaz Rogel Creatinine [Mass/Vol] 1.23 mg/dL Critically high 0.55-1.02 [facility] Comment on above: Performed By: #### B DESPATCH CLERK, CRP, CMP ####[facility] Jvbfnfsnsv7[address] [place] [address]Dr. Shahbaz Rogel EGFR-AF FAROESE 55 mL/min/1.73m2 Critically low >=60 [facility] Comment on above: Performed By: #### B DESPATCH CLERK, CRP, CMP ####[facility] Tjirzhxlwp8124 [place] [address]Dr. Shahbaz Rogel EGFR-NON AF FAROESE 45 mL/min/1.73m2 Critically low >=60 [facility] Comment on above: Performed By: #### B DESPATCH CLERK, CRP, CMP ####[facility] Tttrudrcqz8934 [place] [address]Dr. Shahbaz Rogel Globulin (S) [Mass/Vol] 3.3 g/dL Normal [facility] Comment on above: Performed By: #### B DESPATCH CLERK, CRP, CMP ####[facility] Otlkjxdrjr42[address] [place] [address]Dr. Shahbaz Rogel Glucose [Mass/Vol] 171 mg/dL Critically high 74-106 [facility] Comment on above: Performed By: #### B DESPATCH CLERK, CRP, CMP ####[facility] Ijuspmbdoj39[address] [place] [address]Dr. Shahbaz Rogel Potassium [Moles/Vol] 3.6 mmol/L Normal 3.5-5.1 [facility] Comment on above: Performed By: #### B DESPATCH CLERK, CRP, CMP ####[facility] Xhgioahrvx5970 [place] [address]Dr. Shahbaz Rogel Protein [Mass/Vol] 6.7 g/dL Normal 6.4-8.2 [facility] Comment on above: Performed By: #### B DESPATCH CLERK, CRP, CMP ####[facility] Imgocuxpkv29[address] [place] [address]Dr. Shahbaz Rogel Sodium [Moles/Vol] 138 mmol/L Normal 136-145 [facility] Comment on above: Performed By: #### B DESPATCH CLERK, CRP, CMP ####[facility] Gwmljqoeoo5[address] [place] [address]Dr. Shahbaz Rogel Urea nitrogen [Mass/Vol] 21.0 mg/dL Critically high 7.0-18.0 [facility] Comment on above: Performed By: #### B DESPATCH CLERK, CRP, CMP ####[facility] Zsdaeqrvcy1539 [place] [address]Dr. Shahbaz Rogel Urea nitrogen/Creatinine [Mass ratio] 17.1 mg/mg Normal [facility] Comment on above: Performed By: #### B DESPATCH CLERK, CRP, CMP ####[facility] Lgxwspemod[address] [place], [place] [address]Dr. Shahbaz Rogel XR CHEST 2 Von 07-06-2022 XR CHEST 2 V Normal [facility] BNPon 07-05-2022 Natriuretic peptide B (Bld) [Mass/Vol] 83.0 pg/mL Normal <=900.0 [facility] Comment on above: Performed By: #### C RP, CMP, BNP ####[facility] Jbbdvshyiu9[address] [place], [place] [address]Dr. Shahbaz Rogel CBC AUTO DIFFon 07-05-2022 BASO # 0.0 103/ul Normal 0.0-0.1 [facility] Comment on above: Performed By: #### C BC ####[facility] Uewjlrxvwd[address] [place], [place] [address]Dr. Shahbaz Juan F Basophils/100 WBC (Bld) 0.4 % Normal 0.2-2.0 [facility] Comment on above: Performed By: #### C BC ####[facility] Oybxolzeuz[address] [place], [place] [address]Dr. Shahbaz Juan F EO # 0.1 103/ul Normal 0.0-0.7 [facility] Comment on above: Performed By: #### C BC ####[facility] Ayjpthcmkp[address] [place], [place] [address]Dr. Shahbaz Juan F Eosinophils/100 WBC (Bld) 2.9 % Normal 0.9-7.0 [facility] Comment on above: Performed By: #### C BC ####[facility] Rahvnathiz7[address] [place], [place] [address]Dr. Shahbaz Rogel Erythrocyte distribution width (RBC) [Ratio] 13.4 % Normal 11.0-15.0 [facility] Comment on above: Performed By: #### C BC ####[facility] Qzhhkkxodt[address] [place], [place] [address]Dr. Shahbaz Rogel Hematocrit (Bld) [Volume fraction] 41.7 % Normal 36.0-48.0 [facility] Comment on above: Performed By: #### C BC ####[facility] Tiaaztqthp46[address] [place], [place] [address]Dr. Shahbaz Rogel Hemoglobin (Bld) [Mass/Vol] 12.9 g/dL Normal 12.0-16.0 [facility] Comment on above: Performed By: #### C BC ####[facility] Mnejcjnqnw[address] [place], [place] [address]Dr. Shahbaz Rogel IG # 0.00 10e3/ul Normal 0.00-0.03 [facility] Comment on above: Performed By: #### C BC ####[facility] Mylojxualq[address] [place], [place] [address]Dr. Shahbaz Rogel IG % 0.0 % Normal 0.0-0.5 [facility] Comment on above: Performed By: #### C BC ####[facility] Xzbasvskqf[address] [place], [place] [address]Dr. Shahbaz Rogel LYMPH # 1.5 103/ul Normal 1.2-3.8 [facility] Comment on above: Performed By: #### C BC ####[facility] Lhwblbyayp[address] [place], [place] [address]Dr. Shahbaz Rogel Lymphocytes/100 WBC (Bld) 32.9 % Normal 20.5-60.0 [facility] Comment on above: Performed By: #### C BC ####[facility] Yezmhmzjnf[address] [place], [place] [address]Dr. Shahbaz Rogel MANUAL DIFF REQ NO Normal [facility] Comment on above: Performed By: #### C BC ####[facility] Ggitootfng38[address] [place] [id number]. Shahbaz Juan F MCH (RBC) [Entitic mass] 28.0 pg Normal 26.7-34.0 [facility] Comment on above: Performed By: #### C BC ####[facility] Ecvvwxhumg9094 [place] [id number]. Shahbaz Juan F MCHC (RBC) [Mass/Vol] 30.9 g/dL Normal 29.9-35.2 [facility] Comment on above: Performed By: #### C BC ####[facility] Ilufatgboe4[address] [place] [id number]. Lilajarrod Rogel MCV (RBC) [Entitic vol] 90.5 fL Normal 81.0-99.0 [facility] Comment on above: Performed By: #### C BC ####[facility] Bxuwxktzco9[address] [place], [place] [address]Dr. Shahbaz Rogel MONO # 0.4 103/ul Normal 0.3-0.8 [facility] Comment on above: Performed By: #### C BC ####[facility] Rznlqpjkhs[address] [place], [place] [address]Dr. Shahbaz Rogel Monocytes/100 WBC (Bld) 8.0 % Normal 1.7-12.0 [facility] Comment on above: Performed By: #### C BC ####[facility] Dryvuemgrr[address] [place], [place] [address]Dr. Shahbaz Rogel NEUT # 2.5 103/ul Normal 1.4-6.5 [facility] Comment on above: Performed By: #### C BC ####[facility] Hpdqdziivc[address] [place], [place] [address]Dr. Shahbaz Rogel Neutrophils/100 WBC (Bld) 55.8 % Normal 43.0-75.0 [facility] Comment on above: Performed By: #### C BC ####[facility] Qrkxfldnxp[address] [place], [place] [address]Dr. Shahbaz Rogel Platelet mean volume (Bld) [Entitic vol] 9.7 fL Normal 9.5-13.5 [facility] Comment on above: Performed By: #### C BC ####[facility] Xfzuodymft[address] [place] [address]Dr. Shahbaz Rogel PLT 158 103/ul Normal 150-450 [facility] Comment on above: Performed By: #### C BC ####[facility] Wtxakxjfvc46[address] [place] [id number]. Shahbaz Rogel RBC 4.61 106/ul Normal 4.20-5.40 [facility] Comment on above: Performed By: #### C BC ####[facility] Lxshrhnfue5[address] [place] [address]Dr. Shahbaz Rogel WBC 4.5 103/ul Normal 4.0-11.0 [facility] Comment on above: Performed By: #### C BC ####[facility] Hneieglqfk8[address] [place] [address]Dr. Shahbaz Rogel CRPon 07-05-2022 CRP [Mass/Vol] mg/L Normal <=1.0 [facility] Comment on above: Performed By: #### C RP, CMP, BNP ####[facility] Zgvybxrsjf15[address] [place] [address]Dr. Shahbaz Rogel ECHO LIMITED STUDYon ECHO LIMITED STUDY Normal [facility] PROF 14(COMP METB)on Albumin [Mass/Vol] 3.2 g/dL Critically low 3.4-5.0 [facility] Comment on above: Performed By: #### C RP, CMP, BNP ####[facility] Cbmkpcjniq16[address] [place] [address]Dr. Shahbaz Rogel Albumin/Globulin [Mass ratio] 1.0 {ratio} Normal [facility] Comment on above: Performed By: #### C RP, CMP, BNP ####[facility] Djmmkcijwk9918 [place] [address]Dr. Shahbaz Rogel ALP [Catalytic activity/Vol] 88 U/L Normal 46-116 [facility] Comment on above: Performed By: #### C RP, CMP, BNP ####[facility] Iubtukjnpm77[address] [place] [address]Dr. Shahbaz Rogel ALT [Catalytic activity/Vol] 17 U/L Normal 14-59 [facility] Comment on above: Performed By: #### C RP, CMP, BNP ####[facility] Xqpnncviax2366 [place] [address]Dr. Shahbaz Rogel Anion gap [Moles/Vol] 12.5 mmol/L Normal [facility] Comment on above: Performed By: #### C RP, CMP, BNP ####[facility] Oiyzltznmp39[address] [place] [address]Dr. Shahbaz Rogel AST [Catalytic activity/Vol] 18 U/L Normal 15-37 [facility] Comment on above: Performed By: #### C RP, CMP, BNP ####[facility] Vbbwnsgiwp5532 [place] [address]Dr. Shahbaz Rogel Bilirubin [Mass/Vol] 0.3 mg/dL Normal 0.2-1.0 [facility] Comment on above: Performed By: #### C RP, CMP, BNP ####[facility] Wzfxwbomef[address] [place], [place] [address]Dr. Shahbaz Rogel Calcium [Mass/Vol] 8.9 mg/dL Normal 8.5-10.1 [facility] Comment on above: Performed By: #### C RP, CMP, BNP ####[facility] Dphrtmsobn4679 [place] [address]Dr. Shahbaz Rogel Chloride [Moles/Vol] 103 mmol/L Normal 98-107 [facility] Comment on above: Performed By: #### C RP, CMP, BNP ####[facility] Yisriovdyj79[address] [place] [address]Dr. Shahbaz Rogel CO2 [Moles/Vol] 28.1 mmol/L Normal 21.0-32.0 [facility] Comment on above: Performed By: #### C RP, CMP, BNP ####[facility] Grsxjzqkoa9246 [place] [address]Dr. Shahbaz Rogel Creatinine [Mass/Vol] 1.24 mg/dL Critically high 0.55-1.02 [facility] Comment on above: Performed By: #### C RP, CMP, BNP ####[facility] Agfkfisypz5[address] [place] [address]Dr. Shahbaz Rogel EGFR-AF FAROESE 54 mL/min/1.73m2 Critically low >=60 [facility] Comment on above: Performed By: #### C RP, CMP, BNP ####[facility] Exhbzlosva52[address] [place] [address]Dr. Shahbaz Rogel EGFR-NON AF FAROESE 45 mL/min/1.73m2 Critically low >=60 [facility] Comment on above: Performed By: #### C RP, CMP, BNP ####[facility] Nonjqupzfd5506 [place] [address]Dr. Shahbaz Rogel Globulin (S) [Mass/Vol] 3.1 g/dL Normal [facility] Comment on above: Performed By: #### C RP, CMP, BNP ####[facility] Mtqwiqbojm[address] [place], [place] [address]Dr. Shahbaz Rogel Glucose [Mass/Vol] 115 mg/dL Critically high 74-106 [facility] Comment on above: Performed By: #### C RP, CMP, BNP ####[facility] Ebdteaudnw[address] [place], [place] [address]Dr. Shahbaz Rogel Potassium [Moles/Vol] 3.6 mmol/L Normal 3.5-5.1 [facility] Comment on above: Performed By: #### C RP, CMP, BNP ####[facility] Cnudcmgptq312[address] [place], [place] [address]Dr. Shahbaz Rogel Protein [Mass/Vol] 6.3 g/dL Critically low 6.4-8.2 [facility] Comment on above: Performed By: #### C RP, CMP, BNP ####[facility] Qcsvmkscta42[address] [place], [place] [address]Dr. Shahbaz Rogel Sodium [Moles/Vol] 140 mmol/L Normal 136-145 [facility] Comment on above: Performed By: #### C RP, CMP, BNP ####[facility] Xsfksvycds99[address] [place], [place] [address]Dr. Shahbaz Juan F Urea nitrogen [Mass/Vol] 18.0 mg/dL Normal 7.0-18.0 [facility] Comment on above: Performed By: #### C RP, CMP, BNP ####[facility] Usthazrlac3[address] [place] [address]Dr. Shahbaz Rogel Urea nitrogen/Creatinine [Mass ratio] 14.5 mg/mg Normal [facility] Comment on above: Performed By: #### C RP, CMP, BNP ####[facility] Hcqybjbfft9[address] [place] [address]Dr. Shahbaz Juan F T3, TOTAL (TRIIODOTHYRONINE) on 07-05-2022 T3, TOTAL 95 ng/dL Normal 71-180 [facility] Comment on above: Performed By: #### T 3TOTAL ####[facility] Thdvdtsncl2505 [place] [address]Dr. Shahbaz Juan F CARDIAC ROSALINA 3-6on 2 CK [Catalytic activity/Vol] 78 U/L Normal 26-192 [facility] Comment on above: Performed By: #### C MREP ####[facility] Rpasnosily6534 [place] [address]Dr. Shahbaz Juan F CK.MB [Mass/Vol] 1.44 ng/mL Normal <=3.60 [facility] Comment on above: Performed By: #### C MREP ####[facility] Bpuzivgave[address] [place] [address]Dr. Shahbaz Rogel HSTROP 9.0 pg/mL Normal 4.0-51.3 [facility] Comment on above: Result Comment: CUT- OFF POINTS HAVE BEEN ESTABLISHED BASED ON THE FOURTH UNIVERSAL DEFINITIONS OF MYOCARDIALINFARCTION. THE UPPER REFERENCE LIMIT (URL) OF TROPONIN, DEFINED THE 99TH PERCENTILE OFcTnI DISTRIBUTION IN A REFERENCE POPULATION, HAS BEEN CONFIRMED THE DECISION THRESHOLDFOR MN DIAGNOSIS. Performed By: #### C MREP ####[facility] Kukknfbide[address] [place] [address]Dr. Shahbaz Juan F CK [Catalytic activity/Vol] 88 U/L Normal 26-192 [facility] Comment on above: Performed By: #### C MREP ####[facility] Ugjcsogqmz3287 [place] [id number]. Shahbaz Rogel CK.MB [Mass/Vol] 1.38 ng/mL Normal <=3.60 [facility] Comment on above: Performed By: #### C MREP ####[facility] Imcfcetdad5696 [place] [phone]. Shahbaz Rogel HSTROP 7.0 pg/mL Normal 4.0-51.3 [facility] Comment on above: Result Comment: CUT- OFF POINTS HAVE BEEN ESTABLISHED BASED ON THE FOURTH UNIVERSAL DEFINITIONS OF MYOCARDIALINFARCTION. THE UPPER REFERENCE LIMIT (URL) OF TROPONIN, DEFINED THE 99TH PERCENTILE OFcTnI DISTRIBUTION IN A REFERENCE POPULATION, HAS BEEN CONFIRMED THE DECISION THRESHOLDFOR MN DIAGNOSIS. Performed By: #### C MREP ####[facility] Zlwnyisqbl80[address] [place] [address]Dr. Shahbaz Rogel CARDIAC ROSALINA ADMITon 022 CK [Catalytic activity/Vol] 87 U/L Normal 26-192 [facility] Comment on above: Performed By: #### C JACKSON, CMADM ####[facility] Pbwnkrjlik030[address] [place] [id number]. Shahbaz Rogel CK.MB [Mass/Vol] 1.80 ng/mL Normal <=3.60 [facility] Comment on above: Performed By: #### C JACKSON, CMADM ####[facility] Xejqfkrkux1151 [place] [id number]. Shahbaz Rogel HSTROP 7.6 pg/mL Normal 4.0-51.3 [facility] Comment on above: Result Comment: CUT- OFF POINTS HAVE BEEN ESTABLISHED BASED ON THE FOURTH UNIVERSAL DEFINITIONS OF MYOCARDIALINFARCTION. THE UPPER REFERENCE LIMIT (URL) OF TROPONIN, DEFINED THE 99TH PERCENTILE OFcTnI DISTRIBUTION IN A REFERENCE POPULATION, HAS BEEN CONFIRMED THE DECISION THRESHOLDFOR MN DIAGNOSIS. Performed By: #### C JACKSON, CMADM ####[facility] Syfnffcdge9065 [place] [id number]. Shahbaz Rogel LEN 67 ng/mL Normal 9-82 [facility] Comment on above: Performed By: #### C JACKSON, CMADM ####[facility] Ovhobycfgq7191 [place] [id number]. Shahbaz Juan F CBC AUTO DIFFon 07-04-2022 BASO # 0.0 103/ul Normal 0.0-0.1 [facility] Comment on above: Performed By: #### C BC ####[facility] Frrogmgakx0708 [place] [id number]. Shahbaz Rogel Basophils/100 WBC (Bld) 0.7 % Normal 0.2-2.0 [facility] Comment on above: Performed By: #### C BC ####[facility] Ctuurjlq[address] [place], [place] [address]Dr. Shahbaz Rogel EO # 0.1 103/ul Normal 0.0-0.7 [facility] Comment on above: Performed By: #### C BC ####[facility] Otpdyeqdrg[address] [place], [place] [address]Dr. Shahbaz Rogel Eosinophils/100 WBC (Bld) 3.4 % Normal 0.9-7.0 [facility] Comment on above: Performed By: #### C BC ####[facility] Ogvmbobpsp464[address] [place], [place] [address]Dr. Lilajarrod Rogel Erythrocyte distribution width (RBC) [Ratio] 13.3 % Normal 11.0-15.0 [facility] Comment on above: Performed By: #### C BC ####[facility] Maeyyoovme25[address] [place], [place] [address]Dr. Shahbaz Rogel Hematocrit (Bld) [Volume fraction] 42.1 % Normal 36.0-48.0 [facility] Comment on above: Performed By: #### C BC ####[facility] Qyqphwokca[address] [place], [place] [address]Dr. Shahbaz Rogel Hemoglobin (Bld) [Mass/Vol] 13.3 g/dL Normal 12.0-16.0 [facility] Comment on above: Performed By: #### C BC ####[facility] Jykwwphdzk[address] [place], [place] [address]Dr. Shahbaz Rogel IG # 0.01 10e3/ul Normal 0.00-0.03 [facility] Comment on above: Performed By: #### C BC ####[facility] Owkpwhlfiu2174 [place] [address]Dr. Lilajarrod Rogel IG % 0.3 % Normal 0.0-0.5 [facility] Comment on above: Performed By: #### C BC ####[facility] Whjwhqjmtb5276 [place] [address]Dr. Lilajarrod Rogel LYMPH # 1.0 103/ul Critically low 1.2-3.8 [facility] Comment on above: Performed By: #### C BC ####[facility] Huktufttrn[address] [place], [place] [address]Dr. Lilajarrod Rogel Lymphocytes/100 WBC (Bld) 35.6 % Normal 20.5-60.0 [facility] Comment on above: Performed By: #### C BC ####[facility] Yfmwtffmmj[address] [place], [place] [address]Dr. Shahbaz Rogel MANUAL DIFF REQ NO Normal [facility] Comment on above: Performed By: #### C BC ####[facility] Itukjvhjuh[address] [place], [place] [address]Dr. Shahbaz Juan F MCH (RBC) [Entitic mass] 27.9 pg Normal 26.7-34.0 [facility] Comment on above: Performed By: #### C BC ####[facility] Htvvotwlwf[address] [place], [place] [address]Dr. Shahbaz Juan F MCHC (RBC) [Mass/Vol] 31.6 g/dL Normal 29.9-35.2 [facility] Comment on above: Performed By: #### C BC ####[facility] Zwtlmssjcr[address] [place], [place] [address]Dr. Shahbaz Juan F MCV (RBC) [Entitic vol] 88.3 fL Normal 81.0-99.0 [facility] Comment on above: Performed By: #### C BC ####[facility] Vpdjgmemqh[address] [place], [place] [address]Dr. Shahbaz Rogel MONO # 0.2 103/ul Critically low 0.3-0.8 [facility] Comment on above: Performed By: #### C BC ####[facility] Gfcjkydhoe07[address] [place] [id number]. Shahbaz Rogel Monocytes/100 WBC (Bld) 7.9 % Normal 1.7-12.0 [facility] Comment on above: Performed By: #### C BC ####[facility] Ihzuqfihdc7363 [place] [id number]. Shahbaz Rogel NEUT # 1.5 103/ul Normal 1.4-6.5 [facility] Comment on above: Performed By: #### C BC ####[facility] Yomezndhzk6710 [place] [id number]. Shahbaz Rogel Neutrophils/100 WBC (Bld) 52.1 % Normal 43.0-75.0 [facility] Comment on above: Performed By: #### C BC ####[facility] Ywgkntwhtx7329 [place] [id number]. Shahbaz Rogel Platelet mean volume (Bld) [Entitic vol] 9.5 fL Normal 9.5-13.5 [facility] Comment on above: Performed By: #### C BC ####[facility] Jdcfggfbiv0606 [place] [id number]. Shahbaz Rogel PLT 172 103/ul Normal 150-450 [facility] Comment on above: Performed By: #### C BC ####[facility] Lraaqgkxuz8182 [place] [id number]. Shahbaz Rogel RBC 4.77 106/ul Normal 4.20-5.40 [facility] Comment on above: Performed By: #### C BC ####[facility] Wdjpsegviz2154 [place] [id number]. Shahbaz Rogel WBC 2.9 103/ul Critically low 4.0-11.0 [facility] Comment on above: Performed By: #### C BC ####[facility] Hlaedgpssw38[address] [place] [id number]. Shahbaz Rogel CELL COUNT BODY FLUIDon 10-0 BASOS Normal [facility] Comment on above: Performed By: #### B FCC ####[facility] Tubktygoda[address] [place] [id number]. Shahbaz Rogel Eosinophils/100 WBC (Bld) 4 % Normal [facility] Comment on above: Performed By: #### B FCC ####[facility] Bbihqecikp[address] [place], [place] [address]Dr. Shahbaz Rogel Lymphocytes/100 WBC (Bld) 12 % Normal [facility] Comment on above: Performed By: #### B FCC ####[facility] Spesohrbbd8[address] [place], [place] [address]Dr. Shahbaz Rogel Monocytes/100 WBC (Bld) 4 % Normal [facility] Comment on above: Performed By: #### B FCC ####[facility] Uxbnupwoyl[address] [place], [place] [address]Dr. Shahbaz Rogel RBC 67 cubic mm Normal [facility] Comment on above: Performed By: #### B FCC ####[facility] Fdkvdsvkaw[address] [place], [place] [address]Dr. Shahbaz Rogel SEGS 80 % Normal [facility] Comment on above: Performed By: #### B FCC ####[facility] Bvuuenwxeo[address] [place], [place] [address]Dr. Shahbaz Rogel WBC BODY FLUID 223 cubic mm Normal [facility] [facility] Comment on [facility]: Performed By: #### B FCC ####[facility] Yunxihglgg[address] [place], [place] [address]Dr. Shahbaz Rogel CULTURE OTHERon 07-04-2022 CULTURE OTHER Culture Observations : NO GROWTH AT 48 HOURS. Normal [facility] Comment on above: Performed By: #### O THCX ####[facility] Lhzzvzewfo[address] [place], [place] [address]Dr. Shahbaz Rogel CYTOLOGYon 07-04-2022 SENT TO REF LAB 07/04/22 Normal [facility] Comment on above: Performed By: #### C YTO ####[facility] Akxiqoyivy[address] [place], [place] [address]Dr. Shahbaz Rogel Covid-19 PCR (CVDTBH)on SARS-CoV-2 (COVID-19) RNA PAVAN+probe Ql (Unsp spec) Not detected Normal NOT DETECTED [facility] Comment on above: Result Comment: When [...] for this test is supported by the [place] of Health and Human Service's declaration that [...] be used). Performed By: #### C VDTBH ####[facility] Bqpavxvbns[address] [place], [place] [address]Dr. Shahbaz Rogel GRAM STAINon 07-04-2022 COMMENTS NO ORGANISMS OBSERVED Normal [facility] Comment on above: Performed By: #### G STAIN ####[facility] Dyqxmmbsfi[address] [place], [place] [address]Dr. Shahbaz Rogel DIPHTHEROIDS Normal [facility] Comment on above: Performed By: #### G STAIN ####[facility] Nydmxeqguo[address] [place], [place] [address]Dr. Shahbaz Rogel EPITHELIALS Normal [facility] Comment on above: Performed By: #### G STAIN ####[facility] Wzyubfupxm27[address] [place], [place] [address]Dr. Shahbaz Rogel FUNGAL ELEMENTS Normal [facility] Comment on above: Performed By: #### G STAIN ####[facility] Wrrnfzqvlg[address] [place], [place] [address]Dr. Shahbaz Rogel GRAM NEG BACILLI Normal [facility] Comment on above: Performed By: #### G STAIN ####[facility] Hdgumxvqku048[address] [place], [place] [address]Dr. Shahbaz Rogel GRAM NEG DIPPLOCOCCI Normal [facility] Comment on above: Performed By: #### G STAIN ####[facility] [address]xequar[address] [place] [address]Dr. Shahbaz Rogel GRAM POS BACILLI Normal [facility] Comment on above: Performed By: #### G STAIN ####[facility] Rqwpnskmsc98[address] [place] [address]Dr. Shahbaz Rogel GRAM POSITIVE COCCI Normal [facility] Comment on above: Performed By: #### G STAIN ####[facility] Olpkmqmcnv20[address] [place] [address]Dr. Shahbaz Rogel GRAM STAIN SOURCE Rt Lower Lobe Bronch ial Washing Normal [facility] Comment on above: Performed By: #### G STAIN ####[facility] Sngwgmiiai34[address] [place], [place] [address]Dr. Shahbaz Rogel GS_DIPTH Normal [facility] Comment on above: Performed By: #### G STAIN ####[facility] Eymbbuzawy5[address] [place], [place] [address]Dr. Shahbaz Rogel WBC RARE Normal [facility] Comment on above: Performed By: #### G STAIN ####[facility] Xfshghvdug9[address] [place], [place] [address]Dr. Shahbaz Rogel PROF 14(COMP METB)on 022 Albumin [Mass/Vol] 3.6 g/dL Normal 3.4-5.0 [facility] Comment on above: Performed By: #### C CINDY PAZ ####[facility] Tmgrndjjxy354[address] [place], [place] [address]Dr. Shahbaz Rogel Albumin/Globulin [Mass ratio] 1.1 {ratio} Normal [facility] Comment on above: Performed By: #### C CINDY PAZ ####[facility] Dokhguagrx[address] [place], [place] [address]Dr. Shahbaz Rogel ALP [Catalytic activity/Vol] 102 U/L Normal 46-116 [facility] Comment on above: Performed By: #### C CINDY PAZ ####[facility] Qqdmfqtzwa45[address] [place], [place] [address]Dr. Shahbaz Rogel ALT [Catalytic activity/Vol] 19 U/L Normal 14-59 [facility] Comment on above: Performed By: #### C JACKSON, CINDY ####[facility] Speznubtin[address] [place] [address]Dr. Shahbaz Rogel Anion gap [Moles/Vol] 9.5 mmol/L Normal [facility] Comment on above: Performed By: #### C JACKSON, CINDY ####[facility] Ypshqyopid60[address] [place], [place] [address]Dr. Shahbaz Rogel AST [Catalytic activity/Vol] 19 U/L Normal 15-37 [facility] Comment on above: Performed By: #### C CINDY PAZ ####[facility] Lohbjtewxy9[address] [place], [place] [address]Dr. Shahbaz Rogel Bilirubin [Mass/Vol] 0.3 mg/dL Normal 0.2-1.0 [facility] Comment on above: Performed By: #### C CINDY PAZ ####[facility] Gitanfjqsm563[address] [place], [place] [address]Dr. Shahbaz Rogel Calcium [Mass/Vol] 8.8 mg/dL Normal 8.5-10.1 [facility] Comment on above: Performed By: #### C CINDY PAZ ####[facility] Gzlfqpqifp06[address] [place], [place] [address]Dr. Shahbaz Rogel Chloride [Moles/Vol] 107 mmol/L Normal 98-107 [facility] Comment on above: Performed By: #### C CINDY PAZ ####[facility] Yvkvkpaeoz7925[address] [place], [place] [address]Dr. Shahbaz Rogel CO2 [Moles/Vol] 29.5 mmol/L Normal 21.0-32.0 [facility] Comment on above: Performed By: #### C CINDY PAZ ####[facility] Mkyaekwboo[address] [place], [place] [address]Dr. Shahbaz Rogel Creatinine [Mass/Vol] 0.97 mg/dL Normal 0.55-1.02 [facility] Comment on above: Performed By: #### C CINDY PAZ ####[facility] Hdfssmqbmd6[address] [place] [phone]. Shahbaz Rogel EGFR-AF FAROESE >60 Normal >=60 [facility] Comment on above: Performed By: #### C JACKSON, CMADM ####[facility] Bkaapprcjx4[address] [place] [address]Dr. Shahbaz Rogel EGFR-NON AF FAROESE 59 mL/min/1.73m2 Critically low >=60 [facility] Comment on above: Performed By: #### C JACKSON, CMADM ####[facility] Kempwkileq[address] [place] [address]Dr. Shahbaz Rogel Globulin (S) [Mass/Vol] 3.2 g/dL Normal [facility] Comment on above: Performed By: #### C JACKSON, CMADM ####[facility] Dsvtknrhei44[address] [place] [address]Dr. Shahbaz Rogel Glucose [Mass/Vol] 89 mg/dL Normal 74-106 [facility] Comment on above: Performed By: #### C JACKSON, CMADM ####[facility] Vcdddizwvb74[address] [place] [address]Dr. Shahbaz Rogel Potassium [Moles/Vol] 4.0 mmol/L Normal 3.5-5.1 [facility] Comment on above: Performed By: #### C JACKSON, CMADM ####[facility] Siwzklsnou96[address] [place] [address]Dr. Lilalan Rogel Protein [Mass/Vol] 6.8 g/dL Normal 6.4-8.2 [facility] Comment on above: Performed By: #### C JACKSON, CMADM ####[facility] Illalixhqx49[address] [place] [address]Dr. Shahbaz Rogel Sodium [Moles/Vol] 142 mmol/L Normal 136-145 [facility] Comment on above: Performed By: #### C JACKSON, CMADM ####[facility] Psehkktguk26[address] [place] [address]Dr. Lilalan Rogel Urea nitrogen [Mass/Vol] 11.0 mg/dL Normal 7.0-18.0 [facility] Comment on above: Performed By: #### C JACKSON, CMADM ####[facility] Dlptudkyaz76[address] [place] [phone]. Shahbaz Rogel Urea nitrogen/Creatinine [Mass ratio] 11.3 mg/mg Normal [facility] Comment on above: Performed By: #### C MP, CMADM ####[facility] Tlpsadzoxh30[address] [place] [phone]. Shahbaz Rogel T4on 07-04-2022 T4 [Mass/Vol] 4.70 ug/dL Critically low 4.80-13.90 [facility] Comment on above: Performed By: #### T SH, T4 ####[facility] Dzoksjksfi[address] [place] [address]Dr. Shahbaz Rogel TSHon 07-04-2022 TSH 0.359 uIU/mL Normal 0.358-3.74 0 [facility] Comment on above: Performed By: #### T SH, T4 ####[facility] Fhrrhmleyw7[address] [place], [place] [address]Dr. Shahbaz Rogel XR CHEST 1 Von 07-04-2022 XR CHEST 1 V Normal [facility] XR CHEST 1 V Normal [facility] CHLAMYDIA PNEUMONIAE IgG IgM IgAon 06-27-2022 Chlamydia pneumoniae IgA <1:16 Normal Neg:<1:16 [facility] Comment on above: Performed By: #### C HLMPNE ####[facility] Zriysdghfo[address] [place], [place] [address]Dr. Shahbaz Rogel Chlamydia pneumoniae IgG <1:16 Normal Neg:<1:16 [facility] Comment on above: Performed By: #### C HLMPNE ####[facility] Ghngubpdnl694[address] [place], [place] [address]Dr. Shahbaz Rogel Chlamydia pneumoniae IgM <1:10 Normal Neg:<1:10 [facility] Comment on above: Performed By: #### C HLMPNE ####[facility] Gdpdzzdktc[address] [place], [place] [address]Dr. Shahbaz Rogel Test Information: Comment Normal [facility] Comment on above: Result Comment: This [...] or procedure. Performed By: #### C HLMPNE ####[facility] Ghcdwqiglx[address] [place] [phone]. Shahbaz Rogel Covid-19 PCR ([facility]on [facility]-03 SARS-CoV-2 (COVID-19) RNA PAVAN+probe Ql (Unsp spec) Not detected Normal NOT DETECTED [facility] Comment on above: Result Comment: This test is not yet approved or cleared by the [place] FDA. When there are no FDA-approved or cleared tests available, and other criteria are met, FDA can make tests available under an emergency access mechanism called an Emergency Use Authorization (EUA). The EUA for this test is supported by the [place] of Health and Human Service's (HHS's) declaration [...] with SARS-CoV-2. Performed By: #### C VDTBH ####[facility] Xjgijdetpq5[address] [place] [phone]. Shahbaz Rogel CYCLIC CITRULLINATED PEPTIDE AB (CCP)on 06-25-2022 CCP Antibodies IgG/IgA 13 units Normal 0-19 [facility] Comment on above: Result Comment: Nega tive <20 Weak positive 20 - 39 Moderate positive 40 - 59 Strong positive >59 Performed By: #### C CPAB ####[facility] Qivexmymme22[address] [place] [phone] Rogel ANTI NEUTROPHIL CYTOPLASMIC AB (ANCA) PRon 06-24-2022 Anti-MPO Antibodies <0.2 Normal 0.0-0.9 [facility] Comment on above: Result Comment: Perf ormed at: BN Performed By: #### A NCAP ####[facility] Cyjpgeydlh[address] [place] [address]Dr. Shahbaz Rogel Anti-PR3 Antibodies 5.0 units Critically high 0.0-0.9 [facility] Comment on above: Result Comment: Perf ormed at: BN Performed By: #### A NCAP ####[facility] Mehvyyjuba[address] [place] [address]Dr. Shahbaz Rogel Atypical pANCA <1:20 Normal Neg:<1:20 [facility] Comment on above: Result Comment: The atypical pANCA pattern has been observed in a significantpercentage of patients with ulcerative colitis, primary sclerosingcholangitis and autoimmune hepatitis.Performed at: CB Performed By: #### A NCAP ####[facility] Lyjhegcahk[address] [place] [address]Dr. Shahbaz Rogel Cytoplasmic (C-ANCA) <1:20 Normal Neg:<1:20 [facility] Comment on above: Result Comment: Perf ormed at: CB Performed By: #### A NCAP ####[facility] Eyszgqunxf6[address] [place] [address]Dr. Lilajarrod Rogel Perinuclear (P-ANCA) 1:80 Critically high Neg:<1:20 [facility] Comment on above: Result Comment: [...] at: CB Performed By: #### A NCAP ####[facility] Gqkyjgjgtm4[address] [place] [address]Dr. Shahbaz Rogel ANTIGLOMERULAR BASEMENT MEMB ANTOINE Cervantes 06-24-2022 Anti-GBM Antibodies <0.2 Normal 0.0-0.9 [facility] Comment on above: Performed By: #### A GBM ####[facility] Aartagulfq9[address] [place], [place] [address]Dr. Shahbaz Juan F SHAHANA EIA W/REFLEX 5 BIOMARKER Son 06-23-2022 SHAHANA Direct Negative Normal Negative [facility] Comment on above: Performed By: #### A NARF ####[facility] Dgsmbqfhun[address] [place], [place] [address]Dr. Shahbaz Juan F ANTISCLERODERMA ABon 022 Antiscleroderma-70 Antibodies <0.2 Normal 0.0-0.9 [facility] Comment on above: Performed By: #### A NSCLER ####[facility] Zxxurrxeuj[address] [place], [place] [address]Dr. Shahbaz Juan F RHEUMATOID FACTORon 06-23-20 22 RA Latex Turbid. <10.0 Normal <14.0 [facility] Comment on above: Performed By: #### R F ####[facility] Pidjslwile[address] [place], [place] [address]Dr. Shahbaz Rogel CBC AUTO DIFFon 06-22-2022 BASO # 0.0 103/ul Normal 0.0-0.1 [facility] Comment on above: Performed By: #### C BC ####[facility] Buvkallytd15[address] [place] [address]Dr. Shahbaz Rogel Basophils/100 WBC (Bld) 0.5 % Normal 0.2-2.0 [facility] Comment on above: Performed By: #### C BC ####[facility] Utmwugtojm[address] [place], [place] [address]Dr. Shahbaz Rogel EO # 0.1 103/ul Normal 0.0-0.7 [facility] Comment on above: Performed By: #### C BC ####[facility] Gvgpzpmvvr74[address] [place], [place] [address]Dr. Shahbaz Rogel Eosinophils/100 WBC (Bld) 3.4 % Normal 0.9-7.0 [facility] Comment on above: Performed By: #### C BC ####[facility] Cwgpjgslur1707 [place] [address]Dr. Shahbaz Rogel Erythrocyte distribution width (RBC) [Ratio] 13.2 % Normal 11.0-15.0 [facility] Comment on above: Performed By: #### C BC ####[facility] Piauqkjhnj678[address] [place], [place] [address]Dr. Shahbaz Rogel Hematocrit (Bld) [Volume fraction] 45.6 % Normal 36.0-48.0 [facility] Comment on above: Performed By: #### C BC ####[facility] Tygerufchc[address] [place], [place] [address]Dr. Shahbaz Rogel Hemoglobin (Bld) [Mass/Vol] 14.7 g/dL Normal 12.0-16.0 [facility] Comment on above: Performed By: #### C BC ####[facility] Trovqkiblg[address] [place], [place] [address]Dr. Shahbaz Rogel IG # 0.01 10e3/ul Normal 0.00-0.03 [facility] Comment on above: Performed By: #### C BC ####[facility] Inlkfwtqww813[address] [place], [place] [address]Dr. Shahbaz Rogel IG % 0.3 % Normal 0.0-0.5 [facility] Comment on above: Performed By: #### C BC ####[facility] Moxbcuuebw[address] [place], [place] [address]Dr. Shahbaz Rogel LYMPH # 1.0 103/ul Critically low 1.2-3.8 [facility] Comment on above: Performed By: #### C BC ####[facility] Yikrukghqe24[address] [place], [place] [address]Dr. Shahbaz Rogel Lymphocytes/100 WBC (Bld) 25.7 % Normal 20.5-60.0 [facility] Comment on above: Performed By: #### C BC ####[facility] Epurmxlgob007[address] [place], [place] [address]Dr. Shahbaz Rogel MANUAL DIFF REQ NO Normal [facility] Comment on above: Performed By: #### C BC ####[facility] Forxystagl27[address] [place] [phone]. Shahbaz Juan F MCH (RBC) [Entitic mass] 28.1 pg Normal 26.7-34.0 [facility] Comment on above: Performed By: #### C BC ####[facility] Iuutkzbezp45[address] [place] [address]Dr. Shahbaz Juan F MCHC (RBC) [Mass/Vol] 32.2 g/dL Normal 29.9-35.2 [facility] Comment on above: Performed By: #### C BC ####[facility] Jcwiqodvvw[address] [place] [address]Dr. Lilajarrod Rogel MCV (RBC) [Entitic vol] 87.2 fL Normal 81.0-99.0 [facility] Comment on above: Performed By: #### C BC ####[facility] Fvzbslzmca[address] [place], [place] [address]Dr. Shahbaz Rogel MONO # 0.2 103/ul Critically low 0.3-0.8 [facility] Comment on above: Performed By: #### C BC ####[facility] Wtiuykznmj[address] [place], [place] [address]Dr. Shahbaz Rogel Monocytes/100 WBC (Bld) 6.0 % Normal 1.7-12.0 [facility] Comment on above: Performed By: #### C BC ####[facility] Tjpsuytcjm124[address] [place], [place] [address]Dr. Shahbaz Rogel NEUT # 2.5 103/ul Normal 1.4-6.5 [facility] Comment on above: Performed By: #### C BC ####[facility] Pxctgwpodr725[address] [place], [place] [address]Dr. Shahbaz Rogel Neutrophils/100 WBC (Bld) 64.1 % Normal 43.0-75.0 [facility] Comment on above: Performed By: #### C BC ####[facility] Gnznahxhac411[address] [place], [place] [address]Dr. Shahbaz Rogel Platelet mean volume (Bld) [Entitic vol] 9.4 fL Critically low 9.5-13.5 [facility] Comment on above: Performed By: #### C BC ####[facility] Plbrqvmvjn7[address] [place] [phone]. Shahbaz Juan F PLT 212 103/ul Normal 150-450 [facility] Comment on above: Performed By: #### C BC ####[facility] Alipqsvdfs38[address] [place] [phone]. Shahbaz Rogel RBC 5.23 106/ul Normal 4.20-5.40 [facility] Comment on above: Performed By: #### C BC ####[facility] Qrdbtprvxk7171 [place] [address]Dr. Shahbaz Juan F WBC 3.9 103/ul Critically low 4.0-11.0 [facility] Comment on above: Performed By: #### C BC ####[facility] Qugdoaxfof[address] [place] [address]Dr. Shahbaz Rogel PROF 14(COMP METB)on 022 Albumin [Mass/Vol] 4.1 g/dL Normal 3.4-5.0 [facility] Comment on above: Performed By: #### C MP ####[facility] Qszhkmcbyr1386 [place] [address]Dr. Shahbaz Rogel Albumin/Globulin [Mass ratio] 1.1 {ratio} Normal [facility] Comment on above: Performed By: #### C MP ####[facility] Uexjfpurpa78[address] [place] [address]Dr. Shahbaz Rogel ALP [Catalytic activity/Vol] 133 U/L Critically high 46-116 [facility] Comment on above: Performed By: #### C MP ####[facility] Xukpezvqtn9[address] [place] [address]Dr. Shahbaz Rogel ALT [Catalytic activity/Vol] 29 U/L Normal 14-59 [facility] Comment on above: Performed By: #### C MP ####[facility] Gujngrgtrf59[address] [place] [address]Dr. Shahbaz Rogel Anion gap [Moles/Vol] 10.9 mmol/L Normal [facility] Comment on above: Performed By: #### C MP ####[facility] Tmigjsyrnz5936 [place] [id number]. Shahbaz Rogel AST [Catalytic activity/Vol] 23 U/L Normal 15-37 [facility] Comment on above: Performed By: #### C MP ####[facility] Hrhawzptsv2166 [place] [phone]. Shahbaz Rogel Bilirubin [Mass/Vol] 0.3 mg/dL Normal 0.2-1.0 [facility] Comment on above: Performed By: #### C MP ####[facility] Jbubvzcqqz7826 [place] [phone]. Shahbaz Rogel Calcium [Mass/Vol] 9.1 mg/dL Normal 8.5-10.1 [facility] Comment on above: Performed By: #### C MP ####[facility] Hwcrwvydlw[address] [place], [place] [address]Dr. Shahbaz Rogel Chloride [Moles/Vol] 103 mmol/L Normal 98-107 [facility] Comment on above: Performed By: #### C MP ####[facility] Ezgeagpdmk5938 [place] [id number]. Shahbaz Rogel CO2 [Moles/Vol] 30.8 mmol/L Normal 21.0-32.0 [facility] Comment on above: Performed By: #### C MP ####[facility] Hrauiqothh8[address] [place] [phone]. Shahbaz Rogel Creatinine [Mass/Vol] 1.02 mg/dL Normal 0.55-1.02 [facility] Comment on above: Performed By: #### C MP ####[facility] Bfhriloegz20[address] [place] [phone]. Shahbaz Juan F EGFR-AF FAROESE >60 Normal >=60 [facility] Comment on above: Performed By: #### C MP ####[facility] Lrazezpzww[address] [place], [place] [address]Dr. Lilajarrod Juan F EGFR-NON AF FAROESE 56 mL/min/1.73m2 Critically low >=60 [facility] Comment on above: Performed By: #### C MP ####[facility] Etkidyqikt4[address] [place] [phone]. Shahbaz Rogel Globulin (S) [Mass/Vol] 3.7 g/dL Normal [facility] Comment on above: Performed By: #### C MP ####[facility] Ctbxndicdd3406 [place] [address]Dr. Shahbaz Rogel Glucose [Mass/Vol] 80 mg/dL Normal 74-106 [facility] Comment on above: Performed By: #### C MP ####[facility] Cikwathwdr1422 [place] [address]Dr. Shahbaz Rogel Potassium [Moles/Vol] 3.7 mmol/L Normal 3.5-5.1 [facility] Comment on above: Performed By: #### C MP ####[facility] Ikyhnctnwj1298 [place] [address]Dr. Shahbaz Rogel Protein [Mass/Vol] 7.8 g/dL Normal 6.4-8.2 [facility] Comment on above: Performed By: #### C MP ####[facility] Awjalqpjke[address] [place], [place] [address]Dr. Shahbaz Rogel Sodium [Moles/Vol] 141 mmol/L Normal 136-145 [facility] Comment on above: Performed By: #### C MP ####[facility] Yygqlirbhy[address] [place], [place] [address]Dr. Shahbaz Rogel Urea nitrogen [Mass/Vol] 10.0 mg/dL Normal 7.0-18.0 [facility] Comment on above: Performed By: #### C MP ####[facility] Nqjmkbeqfl5148 [place] [address]Dr. Shahbaz Rogel Urea nitrogen/Creatinine [Mass ratio] 9.8 mg/mg Normal [facility] Comment on above: Performed By: #### C MP ####[facility] Gomiqdcypc717[address] [place], [place] [address]Dr. Shahbaz Rogel SED RATE [facility] 2021 SED RATE 17 mm/hr Normal <=30 [facility] Comment on above: Performed By: #### S EDR ####[facility] Qjhmpnolck905[address] [place], [place] [address]Dr. Shahbaz Rogel CT CHEST HI RESOLUTIONon CT CHEST HI RESOLUTION Normal Th [facility] XR ANKLE RT MIN 3 VIEWSon XR ANKLE RT MIN 3 VIEWS Normal [facility] CT CHEST WO CONon 03-03-2022 CT CHEST WO CON Normal [facility] CT CSPINE WO CONon CT CSPINE WO CON Normal [facility] XR CHEST 2 Von 03-03-2022 XR CHEST 2 V Normal [facility] XR STERNUM MIN 2 VIEWSon XR STERNUM MIN 2 VIEWS Normal [facility] CT HEAD WO CONon 03-02-2022 CT HEAD WO CON Normal [facility] CBC AUTO DIFFon 01-21-2022 BASO # 0.0 103/ul Normal 0.0-0.1 [facility] Comment on above: Performed By: #### C BC ####[facility] Dwgwambhhe167[address] [place], [place] [address]Dr. Shahbaz Rogel Basophils/100 WBC (Bld) 0.0 % Critically low 0.2-2.0 [facility] Comment on above: Performed By: #### C BC ####[facility] Kbyddhlobz137[address] [place], [place] [address]DrChen Rogel EO # 0.0 103/ul Normal 0.0-0.7 [facility] Comment on above: Performed By: #### C BC ####[facility] Soudyxrzjy37[address] [place], [place] [address]DrChen Rogel Eosinophils/100 WBC (Bld) 0.0 % Critically low 0.9-7.0 [facility] Comment on above: Performed By: #### C BC ####[facility] Efsavliwzo675[address] [place], [place] [address]DrChen Rogel Erythrocyte distribution width (RBC) [Ratio] 14.2 % Normal 11.0-15.0 [facility] Comment on above: Performed By: #### C BC ####[facility] Gphadhwdax17[address] [place], [place] [address]DrChen Rogel Hematocrit (Bld) [Volume fraction] 38.9 % Normal 36.0-48.0 [facility] Comment on above: Performed By: #### C BC ####[facility] Uzlxfnieoe8968 [place] [address]Dr. Shahbaz Rogel Hemoglobin (Bld) [Mass/Vol] 11.8 g/dL Critically low 12.0-16.0 [facility] Comment on above: Performed By: #### C BC ####[facility] Ljpidyxnir893[address] [place], [place] [address]Dr. Shahbaz Rogel IG # 0.03 10e3/ul Normal 0.00-0.03 [facility] Comment on above: Performed By: #### C BC ####[facility] Jyzjtuwiei[address] [place], [place] [address]Dr. Shahbaz Rogel IG % 0.4 % Normal 0.0-0.5 [facility] Comment on above: Performed By: #### C BC ####[facility] Iqimwltajo232[address] [place], [place] [address]DrChen Rogel LYMPH # 0.8 103/ul Critically low 1.2-3.8 [facility] Comment on above: Performed By: #### C BC ####[facility] Rsvczxxnlk[address] [place], [place] [address]DrChen Lilajarrod Rogel Lymphocytes/100 WBC (Bld) 10.3 % Critically low 20.5-60.0 [facility] Comment on above: Performed By: #### C BC ####[facility] Ibqgqbcnrz[address] [place], [place] [address]DrChen Rogel MANUAL DIFF REQ NO Normal [facility] Comment on above: Performed By: #### C BC ####[facility] Cqfyatylef[address] [place], [place] [address]Dr. Shahbaz Rogel MCH (RBC) [Entitic mass] 27.1 pg Normal 26.7-34.0 [facility] Comment on above: Performed By: #### C BC ####[facility] Mpvyhfmsdb[address] [place], [place] [address]Dr. Shahbaz Rogel MCHC (RBC) [Mass/Vol] 30.3 g/dL Normal 29.9-35.2 [facility] Comment on above: Performed By: #### C BC ####[facility] Cktkyapgzp404[address] [place], [place] [address]DrChen Rogel MCV (RBC) [Entitic vol] 89.2 fL Normal 81.0-99.0 [facility] Comment on above: Performed By: #### C BC ####[facility] [address]lyhpoviyb[address] [place], [place] [address]DrChen Rogel MONO # 0.4 103/ul Normal 0.3-0.8 [facility] Comment on above: Performed By: #### C BC ####[facility] Uhcbyvvlvy[address] [place], [place] [address]DrChen Rogel Monocytes/100 WBC (Bld) 4.7 % Normal 1.7-12.0 [facility] Comment on above: Performed By: #### C BC ####[facility] Fdtowdjrow83[address] [place], [place] [address]DrChen Rogel NEUT # 6.6 103/ul Critically high 1.4-6.5 [facility] Comment on above: Performed By: #### C BC ####[facility] Nnplvlnnvv773[address] [place], [place] [address]DrChen Rogel Neutrophils/100 WBC (Bld) 84.6 % Critically high 43.0-75.0 [facility] Comment on above: Performed By: #### C BC ####[facility] Gankhggbjg717[address] [place], [place] [address]DrChen Rogel Platelet mean volume (Bld) [Entitic vol] 10.0 fL Normal 9.5-13.5 [facility] Comment on above: Performed By: #### C BC ####[facility] Qzlsyvkebm686[address] [place], [place] [address]DrChen Rogel PLT 165 103/ul Normal 150-450 [facility] Comment on above: Performed By: #### C BC ####[facility] Pdrhaqcebo244[address] [place], [place] [address]DrhCen Rogel RBC 4.36 106/ul Normal 4.20-5.40 [facility] Comment on above: Performed By: #### C BC ####[facility] Enwhqewhep268[address] [place], [place] [address]Dr. Shahbaz Juan F WBC 7.8 103/ul Normal 4.0-11.0 [facility] Comment on above: Performed By: #### C BC ####[facility] Uavynswojb277[address] [place], [place] [address]Dr. Shahbaz Rogel ER URINE PROFILEon 2 Bilirubin Ql (U) Negative Normal NEGATIVE [facility] Comment on above: Performed By: #### E RUR ####[facility] Vcotihmuum115[address] [place], [place] [address]Dr. Shahbaz Rogel Clarity (U) CLEAR Normal CLEAR [facility] Comment on above: Performed By: #### E RUR ####[facility] Kxfsrbjxqk760[address] [place], [place] [address]Dr. Shahbaz Rogel Color (U) LT. YELLOW Normal YELLOW [facility] Comment on above: Performed By: #### E RUR ####[facility] Wiwaaiytid196[address] [place], [place] [address]Dr. Shahbaz Rogel ERUAHD A micrscopic examina tion will be performed if indicated. Normal [facility] Comment on above: Performed By: #### E RUR ####[facility] Lzymdlgyrk8[address] [place], [place] [address]Dr. Shahbaz Rogel Glucose Ql (U) Negative Normal NEGATIVE [facility] Comment on above: Performed By: #### E RUR ####[facility] Vzxlxibmdy49[address] [place], [place] [address]Dr. Shahbaz Rogel Hemoglobin Ql (U) Negative Normal NEGATIVE [facility] Comment on above: Performed By: #### E RUR ####[facility] Edcksnddgu475[address] [place], [place] [address]Dr. Shahbaz Rogel Ketones Ql (U) Negative Normal NEGATIVE [facility] Comment on above: Performed By: #### E RUR ####[facility] Cmnrdgtwoy348[address] [place], [place] [address]Dr. Shahbaz Rogel LEUKOCYTES Negative Normal NEGATIVE [facility] Comment on above: Performed By: #### E RUR ####[facility] [address]seccxhg[address] [place] [address]Dr. Shahbaz Rogel Nitrite Ql (U) Negative Normal NEGATIVE [facility] Comment on above: Performed By: #### E RUR ####[facility] Urjjzttwry5[address] [place] [address]Dr. Shahbaz Rogel pH (U) 6.0 [pH] Normal 5-9 [facility] Comment on above: Performed By: #### E RUR ####[facility] Rhpbemaheq092[address] [place], [place] [address]Dr. Shahbaz Rogel SPEC GRAVITY 1.020 Normal 1.005-<=1. 025 [facility] Comment on above: Performed By: #### E RUR ####[facility] Yzuikazlmi607[address] [place], [place] [address]Dr. Shahbaz Juan F UA PROTEIN Negative Normal NEGATIVE/ TRACE [facility] Comment on above: Performed By: #### E RUR ####[facility] Ellhyiirlk612[address] [place], [place] [address]Dr. Shahbaz Rogel UR MICRO IND NOT INDICATED Normal [facility] Comment on above: Performed By: #### E RUR ####[facility] Gamfjouqyb758[address] [place], [place] [address]Dr. Shahbaz Juan F Urobilinogen Qn (U) 0.2 {Melida'U}/dL Normal 0.2 - 1. 0 [facility] Comment on above: Performed By: #### E RUR ####[facility] Nlslfxmpok708[address] [place], [place] [address]Dr. Shahbaz Juan F POINT OF CARE GLUCOSEon 01-01 Glucose [Mass/Vol] 151 mg/dL Critically high 74-106 [facility] Comment on above: Performed By: #### P OCGLUC ####[facility] Vkymvpdazz723[address] [place], [place] [address]Dr. Lilajarrod Juan F Glucose [Mass/Vol] 248 mg/dL Critically high 74-106 [facility] Comment on above: Performed By: #### P OCGLUC ####[facility] Izrdnulwxc[address] [place] [address]Dr. Shahbaz Rogel PROF 14(COMP METB)on 022 Albumin [Mass/Vol] 2.8 g/dL Critically low 3.4-5.0 [facility] Comment on above: Performed By: #### C MP ####[facility] Zjpnbakfez62[address] [place] [address]Dr. Shahbaz Rogel Albumin/Globulin [Mass ratio] 0.9 {ratio} Normal [facility] Comment on above: Performed By: #### C MP ####[facility] Yroiqvphca098[address] [place], [place] [address]Dr. Shahbaz Rogel ALP [Catalytic activity/Vol] 90 U/L Normal 46-116 [facility] Comment on above: Performed By: #### C MP ####[facility] Qotaahwxeh2225[address] [place], [place] [address]Dr. Shahbaz Rogel ALT [Catalytic activity/Vol] 20 U/L Normal 14-59 [facility] Comment on above: Performed By: #### C MP ####[facility] Qjyyjobvng[address] [place], [place] [address]Dr. Shahbaz Rogel Anion gap [Moles/Vol] 8.9 mmol/L Normal [facility] Comment on above: Performed By: #### C MP ####[facility] Foyalahqwg817[address] [place], [place] [address]Dr. Shahbaz Rogel AST [Catalytic activity/Vol] 14 U/L Critically low 15-37 [facility] Comment on above: Performed By: #### C MP ####[facility] Qibxmjwtxh632[address] [place], [place] [address]Dr. Shahbaz Rogel Bilirubin [Mass/Vol] 0.1 mg/dL Critically low 0.2-1.3 [facility] Comment on above: Performed By: #### C MP ####[facility] Kdxxaxgonn099[address] [place], [place] [address]Dr. Shahbaz Rogel Calcium [Mass/Vol] 8.2 mg/dL Critically low 8.5-10.1 [facility] Comment on above: Performed By: #### C MP ####[facility] Rmfytwnkrs63[address] [place] [address]Dr. Shahbaz Rogel Chloride [Moles/Vol] 110 mmol/L Critically high 98-107 [facility] Comment on above: Performed By: #### C MP ####[facility] Xmjzpwuipm7785 [place] [address]Dr. Shahbaz Rogel CO2 [Moles/Vol] 28.0 mmol/L Normal 22.0-30.0 [facility] Comment on above: Performed By: #### C MP ####[facility] Xeadcnhfdk214[address] [place], [place] [address]Dr. Shahbaz Rogel Creatinine [Mass/Vol] 0.78 mg/dL Normal 0.52-1.04 [facility] Comment on above: Performed By: #### C MP ####[facility] Xbanwvwksk48480[address] [place], [place] [address]Dr. Shahbaz Rogel EGFR-AF FAROESE >60 Normal >=60 [facility] Comment on above: Performed By: #### C MP ####[facility] Lpmeghnpni60[address] [place] [address]Dr. Shahbaz Rogel EGFR-NON AF FAROESE >60 Normal >=60 [facility] Comment on above: Performed By: #### C MP ####[facility] Gnzpgwhpto32[address] [place] [address]Dr. Shahbaz Rogel Globulin (S) [Mass/Vol] 3.1 g/dL Normal [facility] Comment on above: Performed By: #### C MP ####[facility] Ufkmtmlkuy97[address] [place] [address]Dr. Shahbaz Rogel Glucose [Mass/Vol] 121 mg/dL Critically high 74-106 [facility] Comment on above: Performed By: #### C MP ####[facility] Uktmaxyvoe[address] [place] [address]Dr. Shahbaz Rogel Potassium [Moles/Vol] 3.9 mmol/L Normal 3.4-5.0 [facility] Comment on above: Performed By: #### C MP ####[facility] Zuxmecsnff24[address] [place] [address]Dr. Shahbaz Rogel Protein [Mass/Vol] 5.9 g/dL Critically low 6.1-8.2 [facility] Comment on above: Performed By: #### C MP ####[facility] Oqmjlbkzum5[address] [place] [address]Dr. Shahbaz Rogel Sodium [Moles/Vol] 143 mmol/L Normal 137-145 [facility] Comment on above: Performed By: #### C MP ####[facility] Ysfzyhzipa982[address] [place], [place] [address]Dr. Shahbaz Juan F Urea nitrogen [Mass/Vol] 26.0 mg/dL Critically high 7.0-18.0 [facility] Comment on above: Performed By: #### C MP ####[facility] Klggzfjmft07[address] [place], [place] [address]Dr. Shahbaz Rogel Urea nitrogen/Creatinine [Mass ratio] 33.3 mg/mg Normal [facility] Comment on above: Performed By: #### C MP ####[facility] Ripxxueetx116[address] [place], [place] [address]Dr. Shahbaz Juan F PVGPD-7-BWUHDREAUUJou 2021 Tjzhv-0-Woglfehntxq, Serum 154 mg/dL Normal 101-187 [facility] Comment on above: Performed By: #### A LPHA-1 ####[facility] Xthnbsyfru0814[address] [place], [place] [address]Dr. Shahbaz Juan F CBC AUTO DIFFon 01-20-2022 BASO # 0.0 103/ul Normal 0.0-0.1 [facility] Comment on above: Performed By: #### C BC ####[facility] Onomlfwvcc234[address] [place], [place] [address]Dr. Shahbaz Juan F Basophils/100 WBC (Bld) 0.0 % Critically low 0.2-2.0 [facility] Comment on above: Performed By: #### C BC ####[facility] Fcxrxwsmhi2214[address] [place], [place] [address]Dr. Shahbaz Rogel EO # 0.0 103/ul Normal 0.0-0.7 [facility] Comment on above: Performed By: #### C BC ####[facility] Aofqzgprtw712[address] [place], [place] [address]Dr. Shahbaz Rogel Eosinophils/100 WBC (Bld) 0.0 % Critically low 0.9-7.0 [facility] Comment on above: Performed By: #### C BC ####[facility] Yuymjtklhy939[address] [place], [place] [address]Dr. Shahbaz Rogel Erythrocyte distribution width (RBC) [Ratio] 13.7 % Normal 11.0-15.0 [facility] Comment on above: Performed By: #### C BC ####[facility] Lyjtobqdap255[address] [place], [place] [address]Dr. Shahbaz Rogel Hematocrit (Bld) [Volume fraction] 41.2 % Normal 36.0-48.0 [facility] Comment on above: Performed By: #### C BC ####[facility] Ocjuzfghaj570[address] [place], [place] [address]Dr. Shahbaz Rogel Hemoglobin (Bld) [Mass/Vol] 12.8 g/dL Normal 12.0-16.0 [facility] Comment on above: Performed By: #### C BC ####[facility] Nmnymyhitb615[address] [place], [place] [address]Dr. Shahbaz Rogel IG # 0.10 10e3/ul Critically high 0.00-0.03 [facility] Comment on above: Performed By: #### C BC ####[facility] Jinzogxhvm523[address] [place], [place] [address]Dr. Shahbaz Rogel IG % 0.5 % Normal 0.0-0.5 [facility] Comment on above: Performed By: #### C BC ####[facility] Bjcqpzsenk229[address] [place], [place] [address]DrChen Rogel LYMPH # 0.7 103/ul Critically low 1.2-3.8 [facility] Comment on above: Performed By: #### C BC ####[facility] Mahlviuype107[address] [place], [place] [address]Dr. Shahbaz Rogel Lymphocytes/100 WBC (Bld) 6.2 % Critically low 20.5-60.0 [facility] Comment on above: Result Comment: dif. not rqd. same as 01/18/22 Performed By: #### C BC ####[facility] Xuccevbijx[address] [place] [address]Dr. Shahbaz Rogel MANUAL DIFF REQ NO Normal [facility] Comment on above: Performed By: #### C BC ####[facility] Afjntwanbh963[address] [place], [place] [address]Dr. Shahbaz Rogel MCH (RBC) [Entitic mass] 27.2 pg Normal 26.7-34.0 [facility] Comment on above: Performed By: #### C BC ####[facility] Xybewnzlng66340[address] [place], [place] [address]Dr. Shhabaz Rogel MCHC (RBC) [Mass/Vol] 31.1 g/dL Normal 29.9-35.2 [facility] Comment on above: Performed By: #### C BC ####[facility] Kdofemdxmd477[address] [place], [place] [address]Dr. Shahbaz Rogel MCV (RBC) [Entitic vol] 87.5 fL Normal 81.0-99.0 [facility] Comment on above: Performed By: #### C BC ####[facility] Zhcvuahxsi360[address] [place], [place] [address]Dr. Shahbaz Rogel MONO # 0.2 103/ul Critically low 0.3-0.8 [facility] Comment on above: Performed By: #### C BC ####[facility] Yzimohqedk728[address] [place], [place] [address]Dr. Shahbaz Rogel Monocytes/100 WBC (Bld) 1.7 % Normal 1.7-12.0 [facility] Comment on above: Performed By: #### C BC ####[facility] Uygghyttpb87110[address] [place], [place] [address]Dr. Shahbaz Rogel NEUT # 9.8 103/ul Critically high 1.4-6.5 [facility] Comment on above: Performed By: #### C BC ####[facility] Pnnzgqkhhf6306 [place] [address]Dr. Shahbaz Rogel Neutrophils/100 WBC (Bld) 91.6 % Critically high 43.0-75.0 [facility] Comment on above: Performed By: #### C BC ####[facility] Rdmwzlwhhp6187 [place] [address]Dr. Shahbaz Rogel Platelet mean volume (Bld) [Entitic vol] 10.0 fL Normal 9.5-13.5 [facility] Comment on above: Performed By: #### C BC ####[facility] Peapibpdii920[address] [place], [place] [address]Dr. Shahbaz Rogel PLT 198 103/ul Normal 150-450 [facility] Comment on above: Performed By: #### C BC ####[facility] Sxlmxwtlqy597[address] [place], [place] [address]Dr. Shahbaz Rogel RBC 4.71 106/ul Normal 4.20-5.40 [facility] Comment on above: Performed By: #### C BC ####[facility] Dtasqvardg304[address] [place], [place] [address]Dr. Shahbaz Rogel WBC 10.7 103/ul Normal 4.0-11.0 [facility] Comment on above: Performed By: #### C BC ####[facility] Aiplpwciis7399[address] [place], [place] [address]Dr. Shahbaz Rogel POINT OF CARE GLUCOSEon 04-2 Glucose [Mass/Vol] 157 mg/dL Critically high 74-106 [facility] Comment on above: Performed By: #### P OCGLUC ####[facility] Yrmgcgaptj7913[address] [place], [place] [address]Dr. Shahbaz Rogel Glucose [Mass/Vol] 225 mg/dL Critically high 74-106 [facility] Comment on above: Performed By: #### P OCGLUC ####[facility] Gnbgjwapks369[address] [place], [place] [address]Dr. Shahbaz Rogel Glucose [Mass/Vol] 185 mg/dL Critically high 74-106 [facility] Comment on above: Performed By: #### P OCGLUC ####[facility] Wvdjhyqnex[address] [place], [place] [address]Dr. Shahbaz Rogel Glucose [Mass/Vol] 134 mg/dL Critically high 74-106 [facility] Comment on above: Performed By: #### P OCGLUC ####[facility] Ezoyghxnrn29[address] [place] [address]Dr. Shahbaz Rogel PROF 14(COMP METB)on 022 Albumin [Mass/Vol] 3.0 g/dL Critically low 3.4-5.0 [facility] Comment on above: Performed By: #### C MP ####[facility] Zoroerydwt0842 [place] [address]Dr. Shahbaz Rogel Albumin/Globulin [Mass ratio] 0.9 {ratio} Normal [facility] Comment on above: Performed By: #### C MP ####[facility] Iwtgbxdzek972[address] [place], [place] [address]Dr. Shahbaz Rogel ALP [Catalytic activity/Vol] 81 U/L Normal 46-116 [facility] Comment on above: Performed By: #### C MP ####[facility] Ysnjwgodxt95350[address] [place], [place] [address]Dr. Shahbaz Juan F ALT [Catalytic activity/Vol] 14 U/L Normal 14-59 [facility] Comment on above: Performed By: #### C MP ####[facility] Ilthgptpby486[address] [place], [place] [address]Dr. Shahbaz Jua nF Anion gap [Moles/Vol] 13.1 mmol/L Normal [facility] Comment on above: Performed By: #### C MP ####[facility] Moazcpspfd439[address] [place], [place] [address]Dr. Shahbaz Juan F AST [Catalytic activity/Vol] 20 U/L Normal 15-37 [facility] Comment on above: Performed By: #### C MP ####[facility] Chvkoextiv60280[address] [place], [place] [address]Dr. Lilajarrod Juan F Bilirubin [Mass/Vol] 0.3 mg/dL Normal 0.2-1.3 [facility] Comment on above: Performed By: #### C MP ####[facility] Pfrunjfazs[address] [place], [place] [address]Dr. Lilajarrod Rogel Calcium [Mass/Vol] 8.5 mg/dL Normal 8.5-10.1 [facility] Comment on above: Performed By: #### C MP ####[facility] Razzxcicqr[address] [place] [address]Dr. Shahbaz Rogel Chloride [Moles/Vol] 107 mmol/L Normal 98-107 [facility] Comment on above: Performed By: #### C MP ####[facility] Tznxsuipkv64480[address] [place], [place] [address]Dr. Shahbaz Rogel CO2 [Moles/Vol] 24.0 mmol/L Normal 22.0-30.0 [facility] Comment on above: Performed By: #### C MP ####[facility] Efznurvsvs876[address] [place], [place] [address]Dr. Shahbaz Rogel Creatinine [Mass/Vol] 1.00 mg/dL Normal 0.52-1.04 [facility] Comment on above: Performed By: #### C MP ####[facility] Xjrjxprhph060[address] [place], [place] [address]Dr. Lilajarrod Juan F EGFR-AF FAROESE >60 Normal >=60 [facility] Comment on above: Performed By: #### C MP ####[facility] Jweoecscvg106[address] [place], [place] [address]Dr. Lilajarrod Juan F EGFR-NON AF FAROESE 57 mL/min/1.73m2 Critically low >=60 [facility] Comment on above: Performed By: #### C MP ####[facility] Ntkjpfgdwi689[address] [place], [place] [address]Dr. Shahbaz Rogel Globulin (S) [Mass/Vol] 3.4 g/dL Normal [facility] Comment on above: Performed By: #### C MP ####[facility] Pbbkjrozqm864[address] [place], [place] [address]Dr. Shahbaz Rogel Glucose [Mass/Vol] 153 mg/dL Critically high 74-106 T [facility] Comment on above: Performed By: #### C MP ####[facility] Arvhrrenyk589[address] [place], [place] [address]Dr. Shahbaz Rogel Potassium [Moles/Vol] 4.1 mmol/L Normal 3.4-5.0 [facility] Comment on above: Performed By: #### C MP ####[facility] Nytnvxpquc616[address] [place], [place] [address]Dr. Shahbaz Rogel Protein [Mass/Vol] 6.4 g/dL Normal 6.1-8.2 [facility] Comment on above: Performed By: #### C MP ####[facility] Myldvyueeb709[address] [place], [place] [address]Dr. Shahbaz Rogel Sodium [Moles/Vol] 140 mmol/L Normal 137-145 [facility] Comment on above: Performed By: #### C MP ####[facility] Wtpatoyrxd937[address] [place], [place] [address]Dr. Shahbaz Rogel Urea nitrogen [Mass/Vol] 26.0 mg/dL Critically high 7.0-18.0 [facility] Comment on above: Performed By: #### C MP ####[facility] Zmauavqidy299[address] [place], [place] [address]Dr. Shahbaz Rogel Urea nitrogen/Creatinine [Mass ratio] 26.5 mg/mg Normal [facility] Comment on above: Performed By: #### C MP ####[facility] Wjdoofrymf279[address] [place], [place] [address]Dr. Shahbaz Rogel BNPon 01-19-2022 Natriuretic peptide B (Bld) [Mass/Vol] 117.0 pg/mL Normal <=900.0 [facility] Comment on above: Performed By: #### B DESPATCH CLERK, CMP ####[facility] Qtltxkhnud57340[address] [place], [place] [address]Dr. Shahbaz Rogel CBC AUTO DIFFon 01-19-2022 BASO # 0.0 103/ul Normal 0.0-0.1 [facility] Comment on above: Performed By: #### C BC ####[facility] Lagttpvzbl474[address] [place], [place] [address]Dr. Shahbaz Rogel Basophils/100 WBC (Bld) 0.0 % Critically low 0.2-2.0 [facility] Comment on above: Performed By: #### C BC ####[facility] N[address]hmetsdin[address] [place] [id number]. Shahbaz Rogel EO # 0.0 103/ul Normal 0.0-0.7 [facility] Comment on above: Performed By: #### C BC ####[facility] Ywaptbqujb46[address] [place] [id number]. Shahbaz Rogel Eosinophils/100 WBC (Bld) 0.0 % Critically low 0.9-7.0 [facility] Comment on above: Performed By: #### C BC ####[facility] Omvwmfzzey943[address] [place], [place] [address]Dr. Shahbaz Rogel Erythrocyte distribution width (RBC) [Ratio] 13.4 % Normal 11.0-15.0 [facility] Comment on above: Performed By: #### C BC ####[facility] Vbwfybxxzw826[address] [place], [place] [address]Dr. Shahbaz Rogel Hematocrit (Bld) [Volume fraction] 46.3 % Normal 36.0-48.0 [facility] Comment on above: Performed By: #### C BC ####[facility] Dfkinmexsb[address] [place], [place] [address]Dr. Shahbaz Rogel Hemoglobin (Bld) [Mass/Vol] 14.3 g/dL Normal 12.0-16.0 [facility] Comment on above: Performed By: #### C BC ####[facility] Kfnerdwwtw164[address] [place], [place] [address]Dr. Shahbaz Rogel IG # 0.00 10e3/ul Normal 0.00-0.03 [facility] Comment on above: Performed By: #### C BC ####[facility] Gmtirvshui659[address] [place], [place] [address]Dr. Shahbaz Rogel IG % 0.0 % Normal 0.0-0.5 [facility] Comment on above: Performed By: #### C BC ####[facility] Ugnujjoybg879[address] [place], [place] [address]Dr. Shahbaz Rogel LYMPH # 0.6 103/ul Critically low 1.2-3.8 [facility] Comment on above: Performed By: #### C BC ####[facility] Baemswvpsi28[address] [place] [id number]. Shahbaz Rogel Lymphocytes/100 WBC (Bld) 14.2 % Critically low 20.5-60.0 [facility] Comment on above: Performed By: #### C BC ####[facility] Dshnojbiok15[address] [place] [id number]. Lilajarrod Rogel MANUAL DIFF REQ NO Normal [facility] Comment on above: Performed By: #### C BC ####[facility] Occxwurwsx5037 [place] [phone]. Shahbaz Juan F MCH (RBC) [Entitic mass] 27.7 pg Normal 26.7-34.0 [facility] Comment on above: Performed By: #### C BC ####[facility] Qoqmcrjphr907[address] [place], [place] [address]Dr. Shahbaz Juan F MCHC (RBC) [Mass/Vol] 30.9 g/dL Normal 29.9-35.2 [facility] Comment on above: Performed By: #### C BC ####[facility] Inehyexvrs[address] [place], [place] [address]Dr. Shahbaz Juan F MCV (RBC) [Entitic vol] 89.6 fL Normal 81.0-99.0 [facility] Comment on above: Performed By: #### C BC ####[facility] Pbvvxaisxd7613 [place] [address]Dr. Shahbaz Rogel MONO # 0.0 103/ul Critically low 0.3-0.8 [facility] Comment on above: Performed By: #### C BC ####[facility] Kcrzqgbfyu211[address] [place], [place] [address]Dr. Lilajarrod Rogel Monocytes/100 WBC (Bld) 1.0 % Critically low 1.7-12.0 [facility] Comment on above: Performed By: #### C BC ####[facility] Kumqttuzoc[address] [place], [place] [id number]. Shahbaz Rogel NEUT # 3.5 103/ul Normal 1.4-6.5 [facility] Comment on above: Performed By: #### C BC ####[facility] Xjsaraarff01[address] [place] [phone]. Shahbaz Rogel Neutrophils/100 WBC (Bld) 84.8 % Critically high 43.0-75.0 [facility] Comment on above: Performed By: #### C BC ####[facility] Uilrwotqno63[address] [place] [address]Dr. Shahbaz Rogel Platelet mean volume (Bld) [Entitic vol] 9.8 fL Normal 9.5-13.5 [facility] Comment on above: Performed By: #### C BC ####[facility] Efizargjbb6976 [place] [address]Dr. Shahbaz Rogel PLT 185 103/ul Normal 150-450 [facility] Comment on above: Performed By: #### C BC ####[facility] Jvtdvcpcqo[address] [place], [place] [address]Dr. Shahbaz Rogel RBC 5.17 106/ul Normal 4.20-5.40 [facility] Comment on above: Performed By: #### C BC ####[facility] Ubegnvnzsi[address] [place], [place] [address]Dr. Shahbaz Rogel WBC 4.2 103/ul Normal 4.0-11.0 [facility] Comment on above: Performed By: #### C BC ####[facility] Yjfgpbwfcc[address] [place], [place] [address]Dr. Shahbaz Rogel LACTATE/LACTIC ACIDon 2021 Lactate [Moles/Vol] 1.7 mmol/L Normal 0.7-2.0 [facility] Comment on above: Performed By: #### L ACT ####[facility] Jolxscryiu[address] [place], [place] [address]Dr. Shahbza Rogel POINT OF CARE GLUCOSEon 01-01 Glucose [Mass/Vol] 173 mg/dL Critically high 74-106 [facility] Comment on above: Performed By: #### P OCGLUC ####[facility] Rhevcciczx[address] [place], [place] [address]Dr. Shahbaz Rogel Glucose [Mass/Vol] 181 mg/dL Critically high 74-106 [facility] Comment on above: Performed By: #### P OCGLUC ####[facility] [address]ubhmj[address] [place] [address]Dr. Shahbaz Rogel Glucose [Mass/Vol] 154 mg/dL Critically high 74-106 [facility] Comment on above: Performed By: #### P OCGLUC ####[facility] Hezecdyjtq64[address] [place] [address]Dr. Shahbaz Rogel PROF 14(COMP METB)on 022 Albumin [Mass/Vol] 3.5 g/dL Normal 3.4-5.0 [facility] Comment on above: Performed By: #### B DESPATCH CLERK, CMP ####[facility] Kgbbhqzkbi[address] [place], [place] [address]Dr. Shahbaz Rogel Albumin/Globulin [Mass ratio] 0.9 {ratio} Normal [facility] Comment on above: Performed By: #### B DESPATCH CLERK, CMP ####[facility] Agufvilbhm[address] [place], [place] [address]Dr. Shahbaz Rogel ALP [Catalytic activity/Vol] 107 U/L Normal 46-116 [facility] Comment on above: Performed By: #### B DESPATCH CLERK, CMP ####[facility] Xtrohbtvkn[address] [place], [place] [address]Dr. Shahbaz Rogel ALT [Catalytic activity/Vol] 18 U/L Normal 14-59 [facility] Comment on above: Performed By: #### B DESPATCH CLERK, CMP ####[facility] Fjsdqbbjgn[address] [place] [address]Dr. Shahbaz Rogel Anion gap [Moles/Vol] 14.1 mmol/L Normal [facility] Comment on above: Performed By: #### B DESPATCH CLERK, CMP ####[facility] Xmyvklyhkp[address] [place], [place] [address]Dr. Shahbaz Rogel AST [Catalytic activity/Vol] 19 U/L Normal 15-37 [facility] Comment on above: Performed By: #### B DESPATCH CLERK, CMP ####[facility] Ewzzclieeq[address] [place], [place] [address]Dr. Shahbaz Rogel Bilirubin [Mass/Vol] 0.5 mg/dL Normal 0.2-1.3 [facility] Comment on above: Performed By: #### B DESPATCH CLERK, CMP ####[facility] Odgwwgmxul994[address] [place], [place] [address]Dr. Lilajarrod Juan F Calcium [Mass/Vol] 8.5 mg/dL Normal 8.5-10.1 [facility] Comment on above: Performed By: #### B DESPATCH CLERK, CMP ####[facility] Nypnmdjlbd[address] [place], [place] [address]Dr. Shahbaz Rogel Chloride [Moles/Vol] 103 mmol/L Normal 98-107 [facility] Comment on above: Performed By: #### B DESPATCH CLERK, CMP ####[facility] Sjtecjyfjk[address] [place], [place] [address]Dr. Shahbaz Rogel CO2 [Moles/Vol] 25.4 mmol/L Normal 22.0-30.0 [facility] Comment on above: Performed By: #### B DESPATCH CLERK, CMP ####[facility] Nocgyejrcg[address] [place], [place] [address]Dr. Shahbaz Rogel Creatinine [Mass/Vol] 1.48 mg/dL Critically high 0.52-1.04 [facility] Comment on above: Performed By: #### B DESPATCH CLERK, CMP ####[facility] Pztwsoivqe[address] [place], [place] [address]Dr. Shahbaz Rogel EGFR-AF FAROESE 44 mL/min/1.73m2 Critically low >=60 [facility] Comment on above: Performed By: #### B DESPATCH CLERK, CMP ####[facility] Egrnwrbqab267[address] [place], [place] [address]Dr. Shahbaz Rogel EGFR-NON AF FAROESE 36 mL/min/1.73m2 Critically low >=60 [facility] Comment on above: Performed By: #### B DESPATCH CLERK, CMP ####[facility] Iayojgxzfb334[address] [place], [place] [address]Dr. Shahbaz Rogel Globulin (S) [Mass/Vol] 3.7 g/dL Normal [facility] Comment on above: Performed By: #### B DESPATCH CLERK, CMP ####[facility] Rxonjornib159[address] [place], [place] [address]Dr. Shahbaz Rogel Glucose [Mass/Vol] 203 mg/dL Critically high 74-106 [facility] Comment on above: Performed By: #### B DESPATCH CLERK, CMP ####[facility] Cfjizpphzv05[address] [place] [address]Dr. Shahbaz Rogel Potassium [Moles/Vol] 3.5 mmol/L Normal 3.4-5.0 [facility] Comment on above: Performed By: #### B DESPATCH CLERK, CMP ####[facility] Hdunuowfwz45[address] [place], [place] [address]Dr. Shahbaz Rogel Protein [Mass/Vol] 7.2 g/dL Normal 6.1-8.2 [facility] Comment on above: Performed By: #### B DESPATCH CLERK, CMP ####[facility] Atbdgwowdu9724[address] [place], [place] [address]Dr. Shahbaz Rogel Sodium [Moles/Vol] 139 mmol/L Normal 137-145 [facility] Comment on above: Performed By: #### B DESPATCH CLERK, CMP ####[facility] Marbnpvost[address] [place], [place] [address]Dr. Shahbaz Rogel Urea nitrogen [Mass/Vol] 17.0 mg/dL Normal 7.0-18.0 [facility] Comment on above: Performed By: #### B DESPATCH CLERK, CMP ####[facility] Pfphwbiuau013[address] [place], [place] [address]Dr. Shahbaz Rogel Urea nitrogen/Creatinine [Mass ratio] 11.5 mg/mg Normal [facility] Comment on above: Performed By: #### B DESPATCH CLERK, CMP ####[facility] Cwaukaznjy[address] [place], [place] [address]Dr. Shahbaz Rogel BNPon 01-18-2022 Natriuretic peptide B (Bld) [Mass/Vol] 55.0 pg/mL Normal <=900.0 [facility] Comment on above: Performed By: #### C MP, BNP, HSTROPN ####[facility] Krvvhonnzw35[address] [place] [address]Dr. Shahbaz Rogel CBC W MANUAL DIFFon 01-19-20 22 ATYPICAL LYMPH # 0.12 103/ul Normal [facility] Comment on above: Performed By: #### C CAIN ####[facility] [address]sl[address] [place] [id number]. Shahbaz Rogel ATYPICAL LYMPH % 2 % Normal [facility] Comment on above: Performed By: #### C CAIN ####[facility] Bqqcegxkuz4[address] [place] [id number]. Yilan Rogel BAND # 0.0 103/ul Normal 0.0-0.3 [facility] Comment on above: Performed By: #### C CAIN ####[facility] Oxagilmtxz9060 [place] [id number]. Yilan Rogel BAND % 0 % Normal 0-5 [facility] Comment on above: Performed By: #### C CAIN ####[facility] Zmleveohdp35[address] [place] [address]Dr. Shahbaz Rogel BASOM # 0.00 103/ul Normal 0.00-0.10 [facility] Comment on above: Performed By: #### C CAIN ####[facility] Ranerhaefp[address] [place], [place] [address]Dr. Shahbaz Rogel BASOM % 0.0 % Critically low 0.2-2.0 [facility] Comment on above: Performed By: #### C CAIN ####[facility] Lqxmzojifu0[address] [place] [address]Dr. Yilan Rogel BLAST # Normal [facility] Comment on above: Performed By: #### C CAIN ####[facility] Dndpjkpchf74[address] [place] [address]Dr. Yilan Rogel BLAST % Normal [facility] Comment on above: Performed By: #### C CAIN ####[facility] Ykbheodgck[address] [place], [place] [address]Dr. Lilalan Rogel CORRECTED WBC Normal 4.0-11.0 [facility] Comment on above: Performed By: #### C CAIN ####[facility] Yqzsablwpj[address] [place], [place] [address]Dr. Yilan Rogel EOS # 0.25 103/ul Normal 0.00-0.70 [facility] Comment on above: Performed By: #### C CAIN ####[facility] Yjifdkvkkr6750 [place], [place] [address]Be. Shahbaz Rogel EOS% 4.0 % Normal 0.9-7.0 [facility] Comment on above: Performed By: #### C CAIN ####[facility] Slqtoumhxk7456 [place], [place] [address]Ss. Shahbaz Rogel HCT 46.8 % Normal 36.0-48.0 [facility] Comment on above: Performed By: #### C CAIN ####[facility] Zfghfviqki8960 [place], [place] [address]Gy. Shahbaz Rogel HGB 14.9 g/dl Normal 12.0-16.0 [facility] Comment on above: Performed By: #### C CAIN ####[facility] Ajripsflrt57[address] [place] [id number]. Shahbaz Rogel LYMPHM # 0.68 103/ul Critically low 1.20-3.80 [facility] Comment on above: Performed By: #### C CAIN ####[facility] Jrnrenvlyz36[address] [place] [phone]. Shahbaz Rogel LYMPHM% 11.0 % Critically low 20.5-60.0 [facility] Comment on above: Performed By: #### C CAIN ####[facility] Snbkqneryt3172 [place], [place] [address]Vn. Shahbaz Rogel MCH 27.6 pg Normal 26.7-34.0 [facility] Comment on above: Performed By: #### C CAIN ####[facility] Qntsafkjwv5868 [place], [place] [address]Ko. Shahbaz Rogel MCHC 31.8 g/dl Normal 29.9-35.2 [facility] Comment on above: Performed By: #### C CAIN ####[facility] Zufbdiwuao9286 [place], [place] [address]Zu. Shahbaz Rogel MCV 86.8 fL Normal 81.0-99.0 [facility] Comment on above: Performed By: #### Cheri BARLOW ####[facility] Gxnvoakikd48[address] [place] [id number]. Shahbaz Rogel METAMYELOCYTE # Normal [facility] Comment on above: Performed By: #### C CAIN ####[facility] Hknywmlccb30[address] [place] [phone]. Shahbaz Rogel METAMYELOCYTE % Normal [facility] Comment on above: Performed By: #### C CAIN ####[facility] Oq[address]ddtzljl16[address] [place] [phone]. Shahbaz Rogel MONOM# 0.19 103/ul Critically low 0.30-0.80 [facility] Comment on above: Performed By: #### C CAIN ####[facility] Yayinwuioh2236 [place] [id number]. Shahbaz Rogel MONOM% 3.0 % Normal 1.7-12.0 [facility] Comment on above: Performed By: #### C CAIN ####[facility] Qygsoiuuib[address] [place], [place] [address]Dr. Shahbaz uJan F MPV 9.6 fL Normal 9.5-13.5 [facility] Comment on above: Performed By: #### C CAIN ####[facility] X[address]pdq[address]ocyr[address] [place], [place] [address]Dr. Shahbaz Rogel MYELOCYTE # Normal [facility] Comment on above: Performed By: #### C CAIN ####[facility] Grtlomymfl4[address] [place] [phone]. Shahbaz Juan F MYELOCYTE % Normal [facility] Comment on above: Performed By: #### C CAIN ####[facility] Npukwcacox09[address] [place] [phone]. Shahbaz Juan F NRBC Normal [facility] Comment on above: Performed By: #### C CAIN ####[facility] Caomfyvhjl6928 [place] [phone]. Lilajarrod Juan F PLT 203 103/ul Normal 150-450 [facility] Comment on above: Performed By: #### C CAIN ####[facility] Pjcettnuep77[address] [place] [address]Dr. Shahbaz Rogel RBC 5.39 106/ul Normal 4.20-5.40 [facility] Comment on above: Performed By: #### Cheri BARLOW ####[facility] Biniufrrio73[address] [place] [address]Dr. Shahbaz Rogel RDW 13.7 % Normal 11.0-15.0 [facility] Comment on above: Performed By: #### Cheri BARLOW ####[facility] Jjgcbsuegy37[address] [place] [phone]. Shahbaz Rogel SEG # 4.96 103/ul Normal 1.40-6.50 [facility] Comment on above: Performed By: #### Cheri BARLOW ####[facility] Kbmltoqymc4968 [place] [phone]. Shahbaz Rogel SEG % 80.0 % Critically high 43.0-75.0 [facility] Comment on above: Performed By: #### Cheri BARLOW ####[facility] Opztyyowak77[address] [place] [phone]. Shahbaz Rogel WBC 6.2 103/ul Normal 4.0-11.0 [facility] Comment on above: Performed By: #### Cheri BARLOW ####[facility] Kmtq[address]fbz[address] [place], [place] [address]DrChen Rogel CULTURE BLOODon 01-18-2022 Microscopic examination of blood, culture Culture Observations: No growth at 5 days. Normal [facility] Comment on above: Performed By: #### B LDCX2 ####[facility] Qputvxqqwe[address] [place], [place] [address]Dr. Shahbaz Rogel Microscopic examination of blood, culture Culture Observations: No growth at 5 days Normal [facility] Comment on above: Performed By: #### B LDCX1 ####[facility] Ahdsiskbbz[address] [place], [place] [address]Dr. Shahbaz Rogel Covid-19 PCR (CVDTB)on 12-31 SARS-CoV-2 (COVID-19) RNA PAVAN+probe Ql (Unsp spec) Not detected Normal NOT DETECTED [facility] Comment on above: Result Comment: This test is not yet approved or cleared by the [place] FDA. When there are no FDA-approved or cleared tests available, and other criteria are met, FDA can make tests available under an emergency access mechanism called an Emergency Use Authorization (EUA). The EUA for this test is supported by the President Celebrity [employer] of Health and Human Service's (HHS's) declaration [...] with SARS-CoV-2. Performed By: #### C VDTBH ####[facility] Izvbmygrrs[address] [place] [address]Dr. Shahbaz Rogel D-DIMERon 01-18-2022 D-DIMER 0.29 mg/L FEU Normal 0.19-0.50 [facility] Comment on above: Performed By: #### D DIM ####[facility] Cgdgkkurjr22[address] [place] [address]Dr. Shahbaz Rogel D-DIMER COMMENTS SEE BELOW Normal [facility] Comment on above: Result Comment: Incr [...] generalized hospitalization. Performed By: #### D DIM ####[facility] Kbdgslzmzr76[address] [place] [address]Dr. Shahbaz Rogel INFLUENZA A AND B AGon 01-18 INFLUANEGH SEE BELOW Normal [facility] Comment on above: Result Comment: Nega tive for Flu A protein angiten. Infection due to Flu A cannot be ruled out. Flu A angiten in the sample may be below the detection limit of the test. Performed By: #### I NFLUAB ####[facility] Pbxdfyxkup[address] [place], [place] [address]Dr. Shahbaz Rogel INFLUBNEGH SEE BELOW Normal [facility] Comment on above: Result Comment: Nega tive for Flu B protein antigen. Infection due to Flu B cannot be ruled out. Flu B antigen in the sample may be below the detection limit of the test. Performed By: #### I NFLUAB ####[facility] Gnzsfnonwf[address] [place], [place] [address]Dr. Shahbaz Rogel INFLUENZA A AG Negative Normal NEGATIVE SEE COMMENT [facility] Comment on above: Performed By: #### I NFLUAB ####[facility] Nobcvawyvo[address] [place], [place] [address]Dr. Shahbaz Rogel INFLUENZA B AG Negative Normal NEGATIVE SEE COMMENT [facility] Comment on above: Performed By: #### I NFLUAB ####[facility] Rndywrzkjt[address] [place], [place] [address]Dr. Shahbaz Rogel INTERNAL CONTROLS Within Normal Limits Normal Wi thin Normal Limits [facility] Comment on above: Performed By: #### I NFLUAB ####[facility] Dbdsyoxddd454[address] [place], [place] [address]Dr. Shahbaz Rogel LACTATE/LACTIC ACIDon 2021 Lactate [Moles/Vol] 1.0 mmol/L Normal 0.7-2.0 [facility] Comment on above: Performed By: #### L ACT ####[facility] Wvnbgrjruo[address] [place], [place] [address]Dr. Shahbaz Rogel PROF 14(COMP METB)on 022 Albumin [Mass/Vol] 3.8 g/dL Normal 3.4-5.0 [facility] Comment on above: Performed By: #### C MP, BNP, HSTROPN ####[facility] Qexfiprous[address] [place], [place] [address]Dr. Shahbaz Rogel Albumin/Globulin [Mass ratio] 1.0 {ratio} Normal [facility] Comment on above: Performed By: #### C MP, BNP, HSTROPN ####[facility] Ujijmddwli[address] [place] [address]Dr. Shahbaz Rogel ALP [Catalytic activity/Vol] 116 U/L Normal 46-116 [facility] Comment on above: Performed By: #### C MP, BNP, HSTROPN ####[facility] Cohkvjswje9239 [place] [address]Dr. Shahbaz Rogel ALT [Catalytic activity/Vol] 16 U/L Normal 14-59 [facility] Comment on above: Performed By: #### C MP, BNP, HSTROPN ####[facility] Ecttfrmzbq8357 [place] [address]Dr. Shahbaz Rogel Anion gap [Moles/Vol] 9.4 mmol/L Normal [facility] Comment on above: Performed By: #### C MP, BNP, HSTROPN ####[facility] Oyltnbyehl[address] [place], [place] [address]Dr. Shahbaz Rogel AST [Catalytic activity/Vol] 19 U/L Normal 15-37 [facility] Comment on above: Performed By: #### C MP, BNP, HSTROPN ####[facility] Klolaslsdy[address] [place], [place] [address]Dr. Sahhbaz Rogel Bilirubin [Mass/Vol] 0.5 mg/dL Normal 0.2-1.3 [facility] Comment on above: Performed By: #### C MP, BNP, HSTROPN ####[facility] Qcptdcwbkl9[address] [place], [place] [address]Dr. Shahbaz Rogel Calcium [Mass/Vol] 8.9 mg/dL Normal 8.5-10.1 [facility] Comment on above: Performed By: #### C MP, BNP, HSTROPN ####[facility] Yaudbgdbpn398[address] [place], [place] [address]Dr. Shahbaz Rogel Chloride [Moles/Vol] 104 mmol/L Normal 98-107 [facility] Comment on above: Performed By: #### C MP, BNP, HSTROPN ####[facility] Mmovjziaqh32[address] [place] [address]Dr. Shahbaz Rogel CO2 [Moles/Vol] 27.2 mmol/L Normal 22.0-30.0 [facility] Comment on above: Performed By: #### C MP, BNP, HSTROPN ####[facility] Ujmxnwxzih75[address] [place] [address]Dr. Shahbaz Rogel Creatinine [Mass/Vol] 0.99 mg/dL Normal 0.52-1.04 [facility] Comment on above: Performed By: #### C MP, BNP, HSTROPN ####[facility] Xugdvlbtza[address] [place], [place] [address]Dr. Shahbaz Rogel EGFR-AF FAROESE >60 Normal >=60 [facility] Comment on above: Performed By: #### C MP, BNP, HSTROPN ####[facility] Zvwlxijngm[address] [place], [place] [address]Dr. Shahbaz Rogel EGFR-NON AF FAROESE 58 mL/min/1.73m2 Critically low >=60 [facility] Comment on above: Performed By: #### C MP, BNP, HSTROPN ####[facility] Frhppxijtl192[address] [place], [place] [address]Dr. Shahbaz Rogel Globulin (S) [Mass/Vol] 3.8 g/dL Normal [facility] Comment on above: Performed By: #### C MP, BNP, HSTROPN ####[facility] Lxdnyelmdf[address] [place], [place] [address]Dr. Shahbaz Rogel Glucose [Mass/Vol] 104 mg/dL Normal 74-106 [facility] Comment on above: Performed By: #### C MP, BNP, HSTROPN ####[facility] Cnsexriinh[address] [place], [place] [address]Dr. Shahbaz Rogel Potassium [Moles/Vol] 3.6 mmol/L Normal 3.4-5.0 [facility] Comment on above: Performed By: #### C MP, BNP, HSTROPN ####[facility] Yyqlitdrkc964[address] [place], [place] [address]Dr. Shahbaz Rogel Protein [Mass/Vol] 7.6 g/dL Normal 6.1-8.2 [facility] Comment on above: Performed By: #### C MP, BNP, HSTROPN ####[facility] Pblklczbto6[address] [place] [address]Dr. Shahbaz Rogel Sodium [Moles/Vol] 137 mmol/L Normal 137-145 [facility] Comment on above: Performed By: #### C MP, BNP, HSTROPN ####[facility] Bdhziuxfdp79[address] [place] [address]Dr. Shahbaz Rogel Urea nitrogen [Mass/Vol] 9.0 mg/dL Normal 7.0-18.0 [facility] Comment on above: Performed By: #### C MP, BNP, HSTROPN ####[facility] Opzfwtcjif5[address] [place] [address]Dr. Shahbaz Rogel Urea nitrogen/Creatinine [Mass ratio] 9.1 mg/mg Normal [facility] Comment on above: Performed By: #### C MP, BNP, HSTROPN ####[facility] Fpjeqccuxg58[address] [place] [address]Dr. Shahbaz Rogel TROPONIN, HIGH SENSITIVITYon 01-18-2022 HSTROP 6.4 pg/mL Normal 4.0-35.5 [facility] Comment on above: Result Comment: CUT- OFF POINTS HAVE BEEN ESTABLISHED BASED ON THE FOURTH UNIVERSAL DEFINITIONS OF MYOCARDIALINFARCTION. THE UPPER REFERENCE LIMIT (URL) OF TROPONIN, DEFINED THE 99TH PERCENTILE OFcTnI DISTRIBUTION IN A REFERENCE POPULATION, HAS BEEN CONFIRMED THE DECISION THRESHOLDFOR [place] DIAGNOSIS. Performed By: #### C MP, BNP, HSTROPN ####[facility] Grfdpcuryq60[address] [place] [address]Dr. Shahbaz Rogel XR CHEST 2 Von 01-18-2022 XR CHEST 2 V Normal [facility] URINALYSIS REFLEXon 04-04-20 20 Appearance (U) CLEAR Normal CLEAR [facility] Comment on above: Order Comment: No: D o not add to previous draw Performed By: #### 1 0070, 70107, 04787, 80666, 48557, 15547 #### [facility] [address] [place] [address], [place] Bilirubin [Mass/Vol] Negative Normal NEGATIVE [facility] Comment on above: Order Comment: No: D o not add to previous draw Performed By: #### 1 0070, 78792, 92090, 56482, 74441, 55749 #### [facility] [address] [place] [address], [place] BLOOD Negative Normal NEGATIVE [facility] Comment on above: Order Comment: No: D o not add to previous draw Performed By: #### 1 0070, 37013, 49263, 51531, 04940, 34141 #### [facility] [address] [place] [address], [place] Color (U) YELLOW Normal YELLOW [facility] Comment on above: Order Comment: No: D o not add to previous draw Performed By: #### 1 0070, 47556, 61153, 24426, 20295, 22670 #### [facility] [address] [place] [address], [place] Glucose [Mass/Vol] Negative Normal NEGATIVE [facility] Comment on above: Order Comment: No: D o not add to previous draw Performed By: #### 1 0070, 83999, 18964, 85179, 11944, 64591 #### [facility] [address] [place] [address], [place] KETONE Negative Normal NEGATIVE [facility] Comment on above: Order Comment: No: D o not add to previous draw Performed By: #### 1 0070, 50348, 46972, 48001, 04947, 42139 #### [facility] [address] [place] [address], [place] LEUK ELIU Negative Normal NEGATIVE [facility] Comment on above: Order Comment: No: D o not add to previous draw Performed By: #### 1 0070, 23870, 76097, 58013, 35393, 02232 #### [facility] [address] [place] [address], [facility] MICRO NOT DONE Normal [facility] Comment on above: Order Comment: No: D o not add to previous draw Result Comment: Micr oscopics not performed on urines with negative chemical reactions unless requested in original order Performed By: #### 1 0070, 68422, 58415, 33665, 20025, 04219 #### [facility] [address] [place] [address], [facility] Nitrite Ql (U) Negative Normal NEGATIVE [facility] Comment on above: Order Comment: No: D o not add to previous draw Performed By: #### 1 0070, 93734, 89979, 83162, 02899, 78904 #### [facility] [address] [place] [address], [facility] pH (Bld) 5.0 Normal 5.0-8.0 [facility] Comment on above: Order Comment: No: D o not add to previous draw Performed By: #### 1 0070, 82763, 12905, 85165, 82058, 60430 #### [facility] [address] [facility] [place] [address], [facility] Protein (U) [Mass/Vol] Negative Normal NEGATIVE [facility] Comment on above: Order Comment: No: D o not add to previous draw Performed By: #### 1 0070, 05792, 10017, 89816, 97003, 65530 #### [facility] [address] [place] [address], [place] SPEC GRAV 1.012 Low 1.015-1.02 0 [facility] Comment on above: Order Comment: No: D o not add to previous draw Performed By: #### 1 0070, 43410, 09102, 09805, 59060, 36413 #### [facility] [address] [place] [address], [place] BASIC METABOLIC PANELon 07-0 -2020 Calcium [Mass/Vol] 8.4 mg/dL Low 8.6-10.3 [facility] Comment on above: Order Comment: No: D o not add to previous draw Performed By: #### 1 0070, 54330, 22074, 68320, 75534, 44692 #### [facility] [address] [place] [address], [place] Chloride [Moles/Vol] 101 mmol/L Normal 98-107 [facility] Comment on above: Order Comment: No: D o not add to previous draw Performed By: #### 1 0070, 47226, 62382, 82641, 48740, 40831 #### [facility] [address] [place] [address], [place] CO2 [Moles/Vol] 29 mmol/L Normal 21-31 [facility] Comment on above: Order Comment: No: D o not add to previous draw Performed By: #### 1 0070, 76987, 74720, 41517, 89169, 10081 #### [facility] [address] [place] [address], [place] Creatinine [Mass/Vol] 0.79 mg/dL Normal 0.60-1.20 [facility] Comment on above: Order Comment: No: D o not add to previous draw Performed By: #### 1 0070, 60301, 88118, 41161, 58540, 69955 #### [facility] [address] [place] [address], [place] GFR/1.73 sq M predicted among blacks MDRD (S/P/Bld) [Vol rate/Area] mL/min/{1.73_m2} Normal >60 [facility] Comment on above: Order Comment: No: D o not add to previous draw Performed By: #### 1 0070, 13461, 00471, 64315, 43908, 39420 #### [facility] [address] [place] [address], [place] GFR/1.73 sq M predicted among non-blacks MDRD (S/P/Bld) [Vol rate/Area] mL/min/{1.73_m2} Normal >60 [facility] Comment on above: Order Comment: No: D o not add to previous draw Performed By: #### 1 0070, 96817, 29228, 79930, 06035, 14451 #### [facility] [address] [place] [address], [facility] Glucose [Mass/Vol] 91 mg/dL Normal 70-100 [facility] Comment on above: Order Comment: No: D o not add to previous draw Performed By: #### 1 0070, 99713, 16304, 49907, 85198, 47077 #### [facility] [address] [place] [address], [facility] Potassium [Moles/Vol] 3.9 mmol/L Normal 3.5-5.1 [facility] Comment on above: Order Comment: No: D o not add to previous draw Performed By: #### 1 0070, 34615, 23767, 14146, 40855, 60857 #### [facility] [address] [place] [address], [facility] Sodium [Moles/Vol] 133 mmol/L Low 136-145 [facility] Comment on above: Order Comment: No: D o not add to previous draw Performed By: #### 1 0070, 63395, 01682, 12078, 48577, 65890 #### [facility] [address] [place] [address], [facility] Urea nitrogen [Mass/Vol] 10 mg/dL Normal 7-25 [facility] Comment on above: Order Comment: No: D o not add to previous draw Performed By: #### 1 0070, 50907, 43438, 81565, 52647, 06795 #### [facility] [address] [place] [address], [facility] CBC W/DIFFon 04-02-2020 ABS BASOPHILS 0.0 10*3/uL Normal 0.0-0.2 [facility] Comment on above: Order Comment: No: D o not add to previous draw Performed By: #### 1 0070, 68913, 70281, 83116, 78597, 12692 #### [facility] [address] [place] [address], [facility] ABS IMM GRANS 0.0 10*3/uL Normal 0.0-0.2 [facility] Comment on above: Order Comment: No: D o not add to previous draw Performed By: #### 1 0070, 04860, 46528, 07187, 01240, 68889 #### [facility] [address] [place] [address], [facility] ABS NEUTROPHILS 4.5 10*3/uL Normal 1.6-7.6 [facility] Comment on above: Order Comment: No: D o not add to previous draw Performed By: #### 1 0070, 02840, 47601, 00517, 05263, 07644 #### [facility] [address] [place] [address], [facility] Basophils/100 WBC (Bld) 0.2 % Normal 0.0-1.0 [facility] Comment on above: Order Comment: No: D o not add to previous draw Performed By: #### 1 0070, 01290, 06644, 43354, 06246, 06643 #### [facility] [address] [facility] [place] [address], [facility] Eosinophils (Bld) [#/Vol] 0.2 10*3/uL Normal 0.0-0.5 [facility] Comment on above: Order Comment: No: D o not add to previous draw Performed By: #### 1 0070, 73810, 56308, 52370, 57823, 77146 #### [facility] [address] [place] [address], [facility] Eosinophils/100 WBC (Bld) 3.6 % Normal 0.0-6.0 [facility] Comment on above: Order Comment: No: D o not add to previous draw Performed By: #### 1 0070, 53089, 74503, 54843, 79770, 79683 #### [facility] [address] Erythrocyte distribution width (RBC) [Ratio] 12.7 % Normal 11.5-15.0 [facility] Comment on above: Order Comment: No: D o not add to previous draw Performed By: #### 1 0070, 46715, 25612, 31329, 00158, 76659 #### [facility] [address] [facility] Hematocrit (Bld) [Volume fraction] 42.9 % Normal 36.0-45.0 [facility] Comment on above: Order Comment: No: D o not add to previous draw Performed By: #### 1 0070, 43000, 38014, 74097, 10693, 23251 #### [facility] [address] Hemoglobin (Bld) [Mass/Vol] 13.5 g/dL Normal 12.0-15.0 [facility] Comment on above: Order Comment: No: D o not add to previous draw Performed By: #### 1 0070, 03676, 08039, 95268, 64121, 38513 #### [facility] [address] [facility] [place] [address], [facility] IMMATURE GRANS 0.3 % Normal 0.0-1.0 [facility] Comment on above: Order Comment: No: D o not add to previous draw Performed By: #### 1 0070, 87517, 97225, 95216, 01677, 61910 #### [facility] [address] [place] [address], [facility] Lymphocytes (Bld) [#/Vol] 1.1 10*3/uL Low 1.2-4.0 [facility] Comment on above: Order Comment: No: D o not add to previous draw Performed By: #### 1 0070, 78914, 68562, 61463, 89868, 83516 #### [facility] [address] [place] [address], [facility] Lymphocytes/100 WBC (Bld) 18.0 % Low 20.0-45.0 [facility] Comment on above: Order Comment: No: D o not add to previous draw Performed By: #### 1 0070, 67544, 57898, 64842, 46961, 26736 #### [facility] [address] [place] [address], [facility] MCH (RBC) [Entitic mass] 27.4 pg Normal 27.0-33.0 [facility] Comment on above: Order Comment: No: D o not add to previous draw Performed By: #### 1 0070, 62046, 66172, 02958, 50390, 18576 #### [facility] [address] [facility] MCHC (RBC) [Mass/Vol] 31.5 g/dL Low 32.0-35.0 [facility] Comment on above: Order Comment: No: D o not add to previous draw Performed By: #### 1 0070, 32727, 01700, 31859, 14640, 61028 #### [facility] [address] [place] [address], [facility] MCV (RBC) [Entitic vol] 87.0 fL Normal 82.0-98.0 [facility] Comment on above: Order Comment: No: D o not add to previous draw Performed By: #### 1 0070, 77804, 51949, 96462, 63842, 57204 #### [facility] [address] [place] [address], [facility] Monocytes (Bld) [#/Vol] 0.3 10*3/uL Normal 0.1-1.0 [facility] Comment on above: Order Comment: No: D o not add to previous draw Performed By: #### 1 0070, 87311, 70241, 59086, 69922, 42562 #### [facility] [address] [place] [address], [facility] MONOS 5.5 % Normal 5.0-12.0 [facility] Comment on above: Order Comment: No: D o not add to previous draw Performed By: #### 1 0070, 32217, 70539, 78441, 11209, 79893 #### [facility] [address] [place] [address], [facility] Neutrophils/100 WBC (Bld) 72.4 % High 40.0-72.0 [facility] Comment on above: Order Comment: No: D o not add to previous draw Performed By: #### 1 0070, 27253, 24427, 24761, 28027, 66219 #### [facility] [address] Nucleated RBC/100 WBC (Bld) [Ratio] 0 % Normal 0-0 [facility] Comment on above: Order Comment: No: D o not add to previous draw Performed By: #### 1 0070, 73340, 95788, 78355, 65845, 15000 #### [facility] [address] [place] [address], [facility] PLAT CNT 264 10*3/uL Normal 150-400 [facility] Comment on above: Order Comment: No: D o not add to previous draw Performed By: #### 1 0070, 79703, 02675, 84428, 71451, 66701 #### [facility] [address] [place] [address], [facility] RBC (Bld) [#/Vol] 4.93 10*6/uL Normal 3.80-5.00 [facility] Comment on above: Order Comment: No: D o not add to previous draw Performed By: #### 1 0070, 08987, 53732, 73946, 71604, 42567 #### [facility] [address] [facility] [address] WBC (Bld) [#/Vol] 6.17 10*3/uL Normal 4.00-10.60 [facility] Comment on above: Order Comment: No: D o not add to previous draw Performed By: #### 1 0070, 11406, 79995, 69534, 73468, 57737 #### [facility] [address] [facility] [address] MAGNESIUM BLOODon 04-02-2020 Magnesium [Mass/Vol] 2.0 mg/dL Normal 1.9-2.7 [facility] Comment on above: Order Comment: No: D o not add to previous draw Performed By: #### 1 0070, 00078, 88368, 47781, 67582, 05162 #### [facility] [address] [facility] [address] PHOSPHORUS BLOODon 0 Phosphate [Mass/Vol] 3.1 mg/dL Normal 2.5-5.0 [facility] Comment on above: Order Comment: No: D o not add to previous draw Performed By: #### 1 0070, 29616, 76441, 76189, 88042, 17429 #### [facility] [address] [facility] [address] POC GLUCOSE LABon 04-02-2020 Glucose [Mass/Vol] 134 mg/dL High 70-100 [facility] Comment on above: Performed By: #### 1 0070, 96428, 71007, 85628, 41017, 27962 #### [facility] [address] [facility]. [address] UFH HEPARIN ASSAYon 04-02-20 20 UNFRACTIONATED HEPARIN 0.91 IU/mL Critically high 0.30-0.7 0 [facility] Comment on above: Result Comment: [place] roxaban and Apixaban will interfere with the anti Xa assay used to monitor UFH and LMWH. RESULTS CHECKED AND CALLED. ACCURATELY READ BACK BY LYNN POLANCO, RN @ [phone] Performed By: #### 1 0070, 54156, 42667, 12512, 06001, 25030 #### [facility] [address] [place] [address], [facility] ALBUMIN BLOODon 04-01-2020 Albumin [Mass/Vol] 3.0 g/dL Low 3.5-5.7 [facility] Comment on above: Performed By: #### 1 0070, 12244, 53375, 07224, 78144, 40925 #### [facility] [address] [place] [address], [facility] BASIC METABOLIC PANELon Calcium [Mass/Vol] 8.1 mg/dL Low 8.6-10.3 [facility] Comment on above: Order Comment: No: D o not add to previous draw Performed By: #### 1 0070, 11772, 91091, 62718, 58483, 97550 #### [facility] [address] [place] [address], [place] Chloride [Moles/Vol] 105 mmol/L Normal 98-107 [facility] Comment on above: Order Comment: No: D o not add to previous draw Performed By: #### 1 0070, 71737, 16735, 64214, 68068, 94538 #### [facility] [address] [place] [address], [place] CO2 [Moles/Vol] 26 mmol/L Normal 21-31 [facility] Comment on above: Order Comment: No: D o not add to previous draw Performed By: #### 1 0070, 18547, 29374, 94979, 98136, 52927 #### [facility] [address] [place] [address], [place] Creatinine [Mass/Vol] 0.65 mg/dL Normal 0.60-1.20 [facility] Comment on above: Order Comment: No: D o not add to previous draw Performed By: #### 1 0070, 60170, 92444, 45752, 28963, 91879 #### [facility] [address] [place] [address], [place] GFR/1.73 sq M predicted among blacks MDRD (S/P/Bld) [Vol rate/Area] mL/min/{1.73_m2} Normal >60 [facility] Comment on above: Order Comment: No: D o not add to previous draw Performed By: #### 1 0070, 62244, 73735, 98678, 62136, 73422 #### [facility] [address] [place] [address], [facility] GFR/1.73 sq M predicted among non-blacks MDRD (S/P/Bld) [Vol rate/Area] mL/min/{1.73_m2} Normal >60 [facility] Comment on above: Order Comment: No: D o not add to previous draw Performed By: #### 1 0070, 55264, 17005, 64297, 34782, 96456 #### [facility] [address] [place] [address], [place] Glucose [Mass/Vol] 87 mg/dL Normal 70-100 [facility] Comment on above: Order Comment: No: D o not add to previous draw Performed By: #### 1 0070, 01346, 78030, 83418, 38013, 49294 #### [facility] [address] [place] [address], [place] Potassium [Moles/Vol] 4.3 mmol/L Normal 3.5-5.1 [facility] Comment on above: Order Comment: No: D o not add to previous draw Performed By: #### 1 0070, 02295, 97195, 46773, 93613, 58461 #### [facility] [address] [place] [address], [place] Sodium [Moles/Vol] 136 mmol/L Normal 136-145 [facility] Comment on above: Order Comment: No: D o not add to previous draw Performed By: #### 1 0070, 45030, 85954, 96861, 35919, 43287 #### [facility] [address] Urea nitrogen [Mass/Vol] 8 mg/dL Normal 7-25 [facility] Comment on above: Order Comment: No: D o not add to previous draw Performed By: #### 1 0070, 22681, 72637, 16665, 13755, 85056 #### [facility] [address] CBC W/DIFFon 04-01-2020 ABS BASOPHILS 0.0 10*3/uL Normal 0.0-0.2 [facility] Comment on above: Order Comment: No: D o not add to previous draw Performed By: #### 1 0070, 36393, 83969, 62139, 01867, 02852 #### [facility] [address] ABS IMM GRANS 0.0 10*3/uL Normal 0.0-0.2 [facility] Comment on above: Order Comment: No: D o not add to previous draw Performed By: #### 1 0070, 68568, 76090, 47483, 18046, 46219 #### [facility] [address] [facility]. [address] ABS NEUTROPHILS 3.4 10*3/uL Normal 1.6-7.6 [facility] Comment on above: Order Comment: No: D o not add to previous draw Performed By: #### 1 0070, 67507, 72063, 71608, 63430, 31856 #### [facility] [address] Basophils/100 WBC (Bld) 0.2 % Normal 0.0-1.0 [facility] Comment on above: Order Comment: No: D o not add to previous draw Performed By: #### 1 0070, 98920, 67099, 88653, 85890, 30108 #### [facility] [address] [place] [address], [facility] Eosinophils (Bld) [#/Vol] 0.1 10*3/uL Normal 0.0-0.5 [facility] Comment on above: Order Comment: No: D o not add to previous draw Performed By: #### 1 0070, 06695, 61619, 36238, 14070, 23258 #### [facility] [address] [place] [address], [facility] Eosinophils/100 WBC (Bld) 2.6 % Normal 0.0-6.0 [facility] Comment on above: Order Comment: No: D o not add to previous draw Performed By: #### 1 0070, 28087, 35955, 25079, 46701, 44166 #### [facility] [address] Erythrocyte distribution width (RBC) [Ratio] 13.0 % Normal 11.5-15.0 [facility] Comment on above: Order Comment: No: D o not add to previous draw Performed By: #### 1 0070, 75253, 52609, 90250, 34517, 96573 #### [facility] [address] [place] [address], [facility] Hematocrit (Bld) [Volume fraction] 40.9 % Normal 36.0-45.0 [facility] Comment on above: Order Comment: No: D o not add to previous draw Performed By: #### 1 0070, 86182, 88865, 21188, 59581, 67807 #### [facility] [address] [place] [id number], [facility] Hemoglobin (Bld) [Mass/Vol] 12.8 g/dL Normal 12.0-15.0 [facility] Comment on above: Order Comment: No: D o not add to previous draw Performed By: #### 1 0070, 63690, 42960, 87971, 46002, 46458 #### [facility] [address] [facility] [facility] [place] [address], [facility] IMMATURE GRANS 0.6 % Normal 0.0-1.0 [facility] Comment on above: Order Comment: No: D o not add to previous draw Performed By: #### 1 0070, 43386, 63873, 85124, 76501, 26166 #### [facility] [address] [place] [address], [facility] Lymphocytes (Bld) [#/Vol] 1.2 10*3/uL Normal 1.2-4.0 [facility] Comment on above: Order Comment: No: D o not add to previous draw Performed By: #### 1 0070, 64199, 00386, 49965, 26854, 33846 #### [facility] [address] [facility] [place] [address], [facility] Lymphocytes/100 WBC (Bld) 23.7 % Normal 20.0-45.0 [facility] Comment on above: Order Comment: No: D o not add to previous draw Performed By: #### 1 0070, 13864, 20267, 46897, 17841, 93452 #### [facility] [address] [facility] [place] [address], [facility] MCH (RBC) [Entitic mass] 27.4 pg Normal 27.0-33.0 [facility] Comment on above: Order Comment: No: D o not add to previous draw Performed By: #### 1 0070, 22560, 80056, 92291, 16623, 91154 #### [facility] [address] [facility] [place] [address], [facility] MCHC (RBC) [Mass/Vol] 31.3 g/dL Low 32.0-35.0 [facility] Comment on above: Order Comment: No: D o not add to previous draw Performed By: #### 1 0070, 98400, 87366, 24944, 04223, 77827 #### [facility] [address] [facility] [place] [address], [facility] MCV (RBC) [Entitic vol] 87.6 fL Normal 82.0-98.0 [facility] Comment on above: Order Comment: No: D o not add to previous draw Performed By: #### 1 0070, 13764, 31312, 56423, 06073, 72296 #### [facility] [address] [place] [address], [facility] Monocytes (Bld) [#/Vol] 0.3 10*3/uL Normal 0.1-1.0 [facility] Comment on above: Order Comment: No: D o not add to previous draw Performed By: #### 1 0070, 11237, 55618, 31162, 96617, 06849 #### [facility] [address] MONOS 5.4 % Normal 5.0-12.0 [facility] Comment on above: Order Comment: No: D o not add to previous draw Performed By: #### 1 0070, 03316, 58903, 87341, 83834, 50924 #### [facility] [address] [place] [address], [facility] Neutrophils/100 WBC (Bld) 67.5 % Normal 40.0-72.0 [facility] Comment on above: Order Comment: No: D o not add to previous draw Performed By: #### 1 0070, 19248, 45772, 66127, 74591, 24560 #### [facility] [address] [place] [address], [facility] Nucleated RBC/100 WBC (Bld) [Ratio] 0 % Normal 0-0 [facility] Comment on above: Order Comment: No: D o not add to previous draw Performed By: #### 1 0070, 82278, 58729, 69265, 90730, 12819 #### [facility] [address] [facility] [place] [address], [facility] PLAT CNT 237 10*3/uL Normal 150-400 [facility] Comment on above: Order Comment: No: D o not add to previous draw Performed By: #### 1 0070, 89366, 14815, 38569, 53682, 23472 #### [facility] [address] [facility] [place] [address], [facility] RBC (Bld) [#/Vol] 4.67 10*6/uL Normal 3.80-5.00 [facility] Comment on above: Order Comment: No: D o not add to previous draw Performed By: #### 1 0070, 62971, 66810, 31119, 79210, 51575 #### [facility] [address] [facility] [place] [address], [facility] WBC (Bld) [#/Vol] 4.98 10*3/uL Normal 4.00-10.60 [facility] Comment on above: Order Comment: No: D o not add to previous draw Performed By: #### 1 0070, 11128, 51564, 48966, 23111, 24566 #### [facility] [address] CHEST AND LATERALon 04-01-20 CHEST AND LATERAL [facility] Department of Radiology [address] [place] [address] [id number] Patient Name: EMIGDIO ELI : 1965 Sex: F Age: Race: White Pt. Location: [id number] Patient Status: I Ordered Date: 04/01/2020 7:00:00 [...] reports Electronically signed: Shari Salcedo. Transcribed by: [email or web address], User Resident: ANNE VEGA Electronically Signed by: SHARI SALCEDO @ 04/01/2020 10:12 AM I personally read this/these film(s) with this resident Normal [facility] Comment on above: Order Comment: No: D o not add to previous draw MAGNESIUM BLOODon 04-01-2020 Magnesium [Mass/Vol] 2.1 mg/dL Normal 1.9-2.7 [facility] Comment on above: Order Comment: No: D o not add to previous draw Performed By: #### 1 0070, 39836, 95577, 81000, 56607, 05648 #### [facility] [address] APTTon 03-31-2020 aPTT Coag (Bld) [Time] 28.3 s Normal 25.0-35.0 [facility] Comment on above: Order Comment: No: [...] THIS PURPOSE. Performed By: #### 1 0070, 21238, 22898, 07790, 28786, 11625 #### [facility] [address] [facility] [address] BASIC METABOLIC PANELon 03-04 Calcium [Mass/Vol] 7.8 mg/dL Low 8.6-10.3 [facility] Comment on above: Order Comment: No: D o not add to previous draw Performed By: #### 1 0070, 50717, 51050, 93286, 39438, 60092 #### [facility] [address] [facility] [place] [address], [facility] Chloride [Moles/Vol] 108 mmol/L High 98-107 [facility] Comment on above: Order Comment: No: D o not add to previous draw Performed By: #### 1 0070, 69592, 98396, 47874, 45107, 42969 #### [facility] [address] [facility] [place] [address], [facility] CO2 [Moles/Vol] 26 mmol/L Normal 21-31 [facility] Comment on above: Order Comment: No: D o not add to previous draw Performed By: #### 1 0070, 52702, 69459, 58189, 35445, 81914 #### [facility] [address] [place] [address], [facility] Creatinine [Mass/Vol] 0.76 mg/dL Normal 0.60-1.20 [facility] Comment on above: Order Comment: No: D o not add to previous draw Performed By: #### 1 0070, 95054, 86214, 79303, 52772, 55450 #### [facility] [address] [place] [address], [place] GFR/1.73 sq M predicted among blacks MDRD (S/P/Bld) [Vol rate/Area] mL/min/{1.73_m2} Normal >60 [facility] Comment on above: Order Comment: No: D o not add to previous draw Performed By: #### 1 0070, 84051, 12784, 16014, 05172, 22815 #### [facility] [address] [place] [address], [facility] GFR/1.73 sq M predicted among non-blacks MDRD (S/P/Bld) [Vol rate/Area] mL/min/{1.73_m2} Normal >60 [facility] Comment on above: Order Comment: No: D o not add to previous draw Performed By: #### 1 0070, 23088, 32512, 52442, 32778, 24783 #### [facility] [address] [place] [address], [place] Glucose [Mass/Vol] 97 mg/dL Normal 70-100 [facility] Comment on above: Order Comment: No: D o not add to previous draw Performed By: #### 1 0070, 39618, 12385, 30805, 26521, 24512 #### [facility] [address] [place] [address], [place] Potassium [Moles/Vol] 3.2 mmol/L Low 3.5-5.1 [facility] Comment on above: Order Comment: No: D o not add to previous draw Performed By: #### 1 0070, 79349, 97063, 87526, 00079, 85908 #### [facility] [address] Sodium [Moles/Vol] 140 mmol/L Normal 136-145 [facility] Comment on above: Order Comment: No: D o not add to previous draw Performed By: #### 1 0070, 47832, 23330, 93031, 84057, 47943 #### [facility] [address] Urea nitrogen [Mass/Vol] 15 mg/dL Normal 7-25 [facility] Comment on above: Order Comment: No: D o not add to previous draw Performed By: #### 1 0070, 61228, 24050, 83851, 69325, 79637 #### [facility] [address] CBC W/DIFFon 03-31-2020 ABS BASOPHILS 0.0 10*3/uL Normal 0.0-0.2 [facility] Comment on above: Order Comment: No: D o not add to previous draw Performed By: #### 1 0070, [id number], [id number], 11014, 62521, [id number] #### [facility] [address] ABS IMM GRANS 0.0 10*3/uL Normal 0.0-0.2 [facility] Comment on above: Order Comment: No: D o not add to previous draw Performed By: #### 1 0070, [id number], 53094, [id number], 23924, [id number] #### [facility] [address] ABS NEUTROPHILS 3.2 10*3/uL Normal 1.6-7.6 [facility] Comment on above: Order Comment: No: D o not add to previous draw Performed By: #### 1 0070, [id number], 66059, 80489, [id number], [id number] #### [facility] [address] [place], [place] [address], [facility] Basophils/100 WBC (Bld) 0.2 % Normal 0.0-1.0 [facility] Comment on above: Order Comment: No: D o not add to previous draw Performed By: #### 1 0070, 62864, 27875, 32078, 32143, 13468 #### [facility] [address] [place] [address], [facility] Eosinophils (Bld) [#/Vol] 0.0 10*3/uL Normal 0.0-0.5 [facility] Comment on above: Order Comment: No: D o not add to previous draw Performed By: #### 1 0070, 26472, 19699, 81016, 82604, 39145 #### [facility] [address] [place] [address], [facility] Eosinophils/100 WBC (Bld) 0.4 % Normal 0.0-6.0 [facility] Comment on above: Order Comment: No: D o not add to previous draw Performed By: #### 1 0070, 29939, 52598, 18235, 21507, 09222 #### [facility] [address] [place] [address], [facility] Erythrocyte distribution width (RBC) [Ratio] 13.0 % Normal 11.5-15.0 [facility] Comment on above: Order Comment: No: D o not add to previous draw Performed By: #### 1 0070, 72080, 62386, 67686, 31069, 00754 #### [facility] [address] [place] [address], [facility] Hematocrit (Bld) [Volume fraction] 34.4 % Low 36.0-45.0 [facility] Comment on above: Order Comment: No: D o not add to previous draw Performed By: #### 1 0070, 15230, 93378, 63093, 34894, 26556 #### [facility] [address] [place] [address], [facility] Hemoglobin (Bld) [Mass/Vol] 10.8 g/dL Low 12.0-15.0 [facility] Comment on above: Order Comment: No: D o not add to previous draw Performed By: #### 1 0070, 09842, 74041, 66850, 60339, 26060 #### [facility] [address] [place] [address], [facility] IMMATURE GRANS 0.4 % Normal 0.0-1.0 [facility] Comment on above: Order Comment: No: D o not add to previous draw Performed By: #### 1 0070, 33911, 89931, 68587, 09942, 41866 #### [facility] [address] Lymphocytes (Bld) [#/Vol] 1.2 10*3/uL Normal 1.2-4.0 [facility] Comment on above: Order Comment: No: D o not add to previous draw Performed By: #### 1 0070, 36797, 93244, 14324, 06817, 36227 #### [facility] [address] Lymphocytes/100 WBC (Bld) 25.7 % Normal 20.0-45.0 [facility] Comment on above: Order Comment: No: D o not add to previous draw Performed By: #### 1 0070, 35091, 40144, 52521, 59737, 01093 #### [facility] [address] [place] [address], [facility] MCH (RBC) [Entitic mass] 27.5 pg Normal 27.0-33.0 [facility] Comment on above: Order Comment: No: D o not add to previous draw Performed By: #### 1 0070, 64980, 98657, 32926, 44412, 69137 #### [facility] [address] [place] [address], [facility] MCHC (RBC) [Mass/Vol] 31.4 g/dL Low 32.0-35.0 [facility] Comment on above: Order Comment: No: D o not add to previous draw Performed By: #### 1 0070, 07413, 49854, 20007, 24307, 55318 #### [facility] [address] [place] [address], [facility] MCV (RBC) [Entitic vol] 87.5 fL Normal 82.0-98.0 [facility] Comment on above: Order Comment: No: D o not add to previous draw Performed By: #### 1 0070, 95781, 53799, 77780, 44862, 16306 #### [facility] [address] [facility] [place] [address], [facility] Monocytes (Bld) [#/Vol] 0.3 10*3/uL Normal 0.1-1.0 [facility] Comment on above: Order Comment: No: D o not add to previous draw Performed By: #### 1 0070, 92244, 35766, 83340, 77265, 27305 #### [facility] [address] [facility] [address] MONOS 6.2 % Normal 5.0-12.0 [facility] Comment on above: Order Comment: No: D o not add to previous draw Performed By: #### 1 0070, 79339, 48948, 82833, 22172, 85855 #### [facility] [address] [place] [address], [facility] Neutrophils/100 WBC (Bld) 67.1 % Normal 40.0-72.0 [facility] Comment on above: Order Comment: No: D o not add to previous draw Performed By: #### 1 0070, 44026, 72885, 36893, 88832, 90496 #### [facility] [address] [facility] [place] [address], [facility] Nucleated RBC/100 WBC (Bld) [Ratio] 0 % Normal 0-0 [facility] Comment on above: Order Comment: No: D o not add to previous draw Performed By: #### 1 0070, 95896, 01863, 02564, 59854, 93212 #### [facility] [address] [facility] [place] [address], [facility] PLAT CNT 210 10*3/uL Normal 150-400 [facility] Comment on above: Order Comment: No: D o not add to previous draw Performed By: #### 1 0070, 50862, 17109, 97367, 62889, 89963 #### [facility] [address] [place] [address], [facility] RBC (Bld) [#/Vol] 3.93 10*6/uL Normal 3.80-5.00 [facility] Comment on above: Order Comment: No: D o not add to previous draw Performed By: #### 1 0070, 98740, 80165, 19263, 65684, 07789 #### [facility] [address] [facility] [address], [facility] WBC (Bld) [#/Vol] 4.71 10*3/uL Normal 4.00-10.60 [facility] Comment on above: Order Comment: No: D o not add to previous draw Performed By: #### 1 0070, 85552, 55360, 53875, 46207, 55363 #### [facility] [address] Cardiovascular Lab Reporton 03-31-2020 Cardiovascular Lab Report [facility] Patient Name: Paulie Emigdio [facility] S MR #: [id number] Department of Physician: Rebecca Weaver M.D. Medicine Service Date: 03/31/2020 Division of Birthdate: 1965 Cardiology Room #: [id number] Adult Cardiovascular Services [facility] [address] [place], [place] [address] Cardiovascular Laboratory Report INDICATIONS FOR PACEMAKER PLACEMENT: [...] silk suture. They were connected to a ANTERIOSronik Edora dual-chamber pacing system. This was placed [...] of the upper extremity. Electronically Signed by: Reebcca Weaver M.D. 04/03/2020 10:48 A Rebecca Weaver M.D. Date Dict: 03/31/2020/01:20 P/Rebecca Weaver M.D. Date Trans: 03/31/2020 03:35 P/mmo [id number] cc: Tony Hines M.D. Heart Failure/ Transplant Mailstop [address] [address] Normal [facility] MAGNESIUM BLOODon 03-31-2020 Magnesium [Mass/Vol] 1.8 mg/dL Low 1.9-2.7 [facility] Comment on above: Order Comment: No: D o not add to previous draw Performed By: #### 1 0070, 77759, 14309, 15874, 43950, 86685 #### [facility] [address] PHOSPHORUS BLOODon 0 Phosphate [Mass/Vol] 2.7 mg/dL Normal 2.5-5.0 [facility] Comment on above: Order Comment: No: D o not add to previous draw Performed By: #### 1 0070, 43641, 28375, 68156, 27639, 44950 #### [facility] [address] PROTHROMBIN TIMEon 0 INR Coag (PPP) [Relative time] 1.11 {INR} Normal 0.91-1.16 [facility] Comment on above: Order Comment: No: [...] CHEST 1995;108:231S-246S. Performed By: #### 1 0070, 37686, 93414, 42973, 92303, 67942 #### [facility] [address] [place] [address], [facility] PT Coag (PPP) [Time] 14.3 s Normal 12.3-14.8 [facility] Comment on above: Order Comment: No: D o not add to previous draw Result Comment: ALL RESULTS MUST BE INTERPRETED WITH RESPECT TO BLOOD DRAWING ARTIFACT OR DILUTION ERROR OF ANTICOAGULANT AT THE TIME OF SAMPLING. Performed By: #### 1 0070, 32652, 75453, 14675, 82792, 45604 #### [facility] [address] [place] [address], [facility] *SARS-CoV-2 COVID-19on 03-30 [id number] Not Detected Normal Not Detected [facility] Comment on above: Order Comment: No: D o not add to previous draw Performed By: #### 1 0070, 64496, 26944, 57286, 87428, 49535 #### [facility] [address] [place] [address], [facility] APTTon 03-30-2020 aPTT Coag (Bld) [Time] 24.9 s Low 25.0-35.0 [facility] Comment on above: Order Comment: No: [...] THIS PURPOSE. Performed By: #### 5 7307, 85137 #### [facility] [address] BASIC METABOLIC PANELon 03-03 Calcium [Mass/Vol] 8.9 mg/dL Normal 8.6-10.3 [facility] Comment on above: Order Comment: No: D o not add to previous draw Performed By: #### 1 0070, 56348, 59156, 64730, 11384, 61359 #### [facility] [address] [place] [address], [facility] Chloride [Moles/Vol] 110 mmol/L High 98-107 [facility] Comment on above: Order Comment: No: D o not add to previous draw Performed By: #### 1 0070, 75527, 48478, 23521, 55653, 67230 #### [facility] [address] [place] [address], [facility] CO2 [Moles/Vol] 26 mmol/L Normal 21-31 [facility] Comment on above: Order Comment: No: D o not add to previous draw Performed By: #### 1 0070, 46507, 55528, 75147, 56374, 64152 #### [facility] [address] [place] [id number], [facility] Creatinine [Mass/Vol] 0.86 mg/dL Normal 0.60-1.20 [facility] Comment on above: Order Comment: No: D o not add to previous draw Performed By: #### 1 0070, 52092, 18573, 16954, 55848, 08047 #### [facility] [address] [place] [address], [facility] GFR/1.73 sq M predicted among blacks MDRD (S/P/Bld) [Vol rate/Area] mL/min/{1.73_m2} Normal >60 [facility] Comment on above: Order Comment: No: D o not add to previous draw Performed By: #### 1 0070, 26861, 23140, 78313, 97208, 77578 #### [facility] [address] [place] [address], [facility] GFR/1.73 sq M predicted among non-blacks MDRD (S/P/Bld) [Vol rate/Area] mL/min/{1.73_m2} Normal >60 [facility] Comment on above: Order Comment: No: D o not add to previous draw Performed By: #### 1 0070, 29583, 41393, 97258, 87806, 46404 #### [facility] [address] [place] [address], [facility] Glucose [Mass/Vol] 119 mg/dL High 70-100 [facility] Comment on above: Order Comment: No: D o not add to previous draw Performed By: #### 1 0070, 18214, 71130, 78506, 84725, 74329 #### [facility] [address] [place] [address], [place] Potassium [Moles/Vol] 3.5 mmol/L Normal 3.5-5.1 [facility] Comment on above: Order Comment: No: D o not add to previous draw Performed By: #### 1 0070, 14952, 36464, 64682, 51596, 54394 #### [facility] [address] [place] [address], [place] Sodium [Moles/Vol] 142 mmol/L Normal 136-145 [facility] Comment on above: Order Comment: No: D o not add to previous draw Performed By: #### 1 0070, 73870, 15695, 13628, 07150, 99345 #### [facility] [address] Urea nitrogen [Mass/Vol] 13 mg/dL Normal 7-25 [facility] Comment on above: Order Comment: No: D o not add to previous draw Performed By: #### 1 0070, 78903, 74585, 55249, 76088, 20755 #### [facility] [address] CBC W/DIFFon 03-30-2020 ABS BASOPHILS 0.0 10*3/uL Normal 0.0-0.2 [facility] Comment on above: Performed By: #### 5 0103 #### [facility] [address] ABS IMM GRANS 0.0 10*3/uL Normal 0.0-0.2 [facility] Comment on above: Performed By: #### 5 102 #### [facility] [address] ABS NEUTROPHILS 5.7 10*3/uL Normal 1.6-7.6 [facility] Comment on above: Performed By: #### 5 102 #### [facility] [address] Basophils/100 WBC (Bld) 0.0 % Normal 0.0-1.0 [facility] Comment on above: Performed By: #### 5 102 #### [facility] [address] Eosinophils (Bld) [#/Vol] 0.0 10*3/uL Normal 0.0-0.5 [facility] Comment on above: Performed By: #### 5 102 #### [facility] [address] [place] [address], [facility] Eosinophils/100 WBC (Bld) 0.0 % Normal 0.0-6.0 [facility] Comment on above: Performed By: #### 5 3 #### [facility] [address] Erythrocyte distribution width (RBC) [Ratio] 12.9 % Normal 11.5-15.0 [facility] Comment on above: Performed By: #### 3 #### [facility] [address] Hematocrit (Bld) [Volume fraction] 36.1 % Normal 36.0-45.0 [facility] Comment on above: Performed By: #### 102 #### [facility] [address] Hemoglobin (Bld) [Mass/Vol] 11.5 g/dL Low 12.0-15.0 [facility] Comment on above: Performed By: #### 5 3 #### [facility] [address] IMMATURE GRANS 0.5 % Normal 0.0-1.0 [facility] Comment on above: Performed By: #### 5 3 #### [facility] [address] Lymphocytes (Bld) [#/Vol] 0.6 10*3/uL Low 1.2-4.0 [facility] Comment on above: Performed By: #### 5 3 #### [facility] [address] Lymphocytes/100 WBC (Bld) 9.3 % Low 20.0-45.0 [facility] Comment on above: Performed By: #### 5 3 #### [facility] [address] MCH (RBC) [Entitic mass] 27.4 pg Normal 27.0-33.0 [facility] Comment on above: Performed By: #### 5 0103 #### [facility] [address] [facility] [address] MCHC (RBC) [Mass/Vol] 31.9 g/dL Low 32.0-35.0 [facility] Comment on above: Performed By: #### 5 0103 #### [facility] [address] MCV (RBC) [Entitic vol] 86.0 fL Normal 82.0-98.0 [facility] Comment on above: Performed By: #### 5 0103 #### [facility] [address] Monocytes (Bld) [#/Vol] 0.2 10*3/uL Normal 0.1-1.0 [facility] Comment on above: Performed By: #### 5 0103 #### [facility] [address] MONOS 2.5 % Low 5.0-12.0 [facility] Comment on above: Performed By: #### 5 0103 #### [facility] [address] Neutrophils/100 WBC (Bld) 87.7 % High 40.0-72.0 [facility] Comment on above: Performed By: #### 5 0103 #### [facility] [address] Nucleated RBC/100 WBC (Bld) [Ratio] 0 % Normal 0-0 [facility] Comment on above: Performed By: #### 5 0103 #### [facility] [address] PLAT CNT 261 10*3/uL Normal 150-400 [facility] Comment on above: Performed By: #### 5 0103 #### [facility] [address] [place] [address], [facility] RBC (Bld) [#/Vol] 4.20 10*6/uL Normal 3.80-5.00 [facility] Comment on above: Performed By: #### 5 0103 #### [facility] [address] [place] [address], [facility] WBC (Bld) [#/Vol] 6.47 10*3/uL Normal 4.00-10.60 [facility] Comment on above: Performed By: #### 5 0103 #### [facility] [address] [facility] [place] [address], [facility] FREE T4on 03-30-2020 Free T4 [Mass/Vol] 1.48 ng/dL Normal 0.71-1.85 [facility] Comment on above: Performed By: #### 1 0070, 60243, 99739, 66902, 65138, 10473 #### [facility] [address] [place] [address], [facility] MAGNESIUM BLOODon 03-30-2020 Magnesium [Mass/Vol] 2.0 mg/dL Normal 1.9-2.7 [facility] Comment on above: Order Comment: No: D o not add to previous draw Performed By: #### 1 0070, 51560, 01210, 01676, 87211, 33299 #### [facility] [address] [facility] [place] [id number], [facility] PHOSPHORUS BLOODon 0 Phosphate [Mass/Vol] 2.8 mg/dL Normal 2.5-5.0 [facility] Comment on above: Order Comment: No: D o not add to previous draw Performed By: #### 1 0070, 41723, 51111, 71413, 39480, 66592 #### [facility] [address] [facility] [address] PROTHROMBIN TIMEon 0 INR Coag (PPP) [Relative time] 1.21 {INR} High 0.91-1.16 [facility] Comment on above: Order Comment: No: [...] CHEST 1995;108:231S-246S. Performed By: #### 5 7307, 39744 #### [facility] [address] [facility] [place] [address], [facility] PT Coag (PPP) [Time] 15.4 s High 12.3-14.8 [facility] Comment on above: Order Comment: No: D o not add to previous draw Result Comment: ALL RESULTS MUST BE INTERPRETED WITH RESPECT TO BLOOD DRAWING ARTIFACT OR DILUTION ERROR OF ANTICOAGULANT AT THE TIME OF SAMPLING. Performed By: #### 5 7307, 32507 #### [facility] [address] [facility] [address], [facility] TROPONIN-Ion 03-30-2020 Troponin I.cardiac [Mass/Vol] 0.02 ng/mL Normal 0.00-0.04 [facility] Comment on above: Order Comment: No: D o not add to previous draw Result Comment: REFE RENCE RANGES: 0.00 - 0.04 ng/ml NORMAL 0.05 - 0.50 ng/ml INDETERMINATE > 0.50 ng/ml CONSISTENT WITH AN M.I. Performed By: #### 1 0070, 55105, 70823, 80850, 99322, 08039 #### [facility] [address] Troponin I.cardiac [Mass/Vol] 0.04 ng/mL Normal 0.00-0.04 [facility] Comment on above: Order Comment: No: D o not add to previous draw Result Comment: REFE RENCE RANGES: 0.00 - 0.04 ng/ml NORMAL 0.05 - 0.50 ng/ml INDETERMINATE > 0.50 ng/ml CONSISTENT WITH AN M.I. Performed By: #### 3 5200 #### [facility] [address] [facility] [address], [facility] Troponin I.cardiac [Mass/Vol] 0.04 ng/mL Normal 0.00-0.04 [facility] Comment on above: Order Comment: No: D o not add to previous draw Result Comment: REFE RENCE RANGES: 0.00 - 0.04 ng/ml NORMAL 0.05 - 0.50 ng/ml INDETERMINATE > 0.50 ng/ml CONSISTENT WITH AN M.I. Performed By: #### 1 0070, 12040, 92955, 99442, 14280, 10391 #### [facility] [address] [facility]. [address] TSH3 WITH REFLEX FT4on 03-30 TSH 3RD GENERATION 0.02 uIU/mL Low 0.34-5.60 [facility] Comment on above: Performed By: #### 1 0070, 04820, 93064, 24889, 05594, 11533 #### [facility] [address] [facility]. [address] Vital Signs Date Time Vital Sign Value Performing Clinician Faci lity 06-13-2024 12:13-0400 Body height 152.3 cm Zoila Monae MD Work Phone: [facility] 06-13-2024 12:13-0400 Body mass index (BMI) [Ratio] 19.98 kg/m2 Zoila Monae MD Work Phone: [facility] 06-13-2024 12:13-0400 Body weight 46.35 kg Zoila Monae MD Work Phone: [facility] 06-13-2024 12:13-0400 Diastolic blood pressure 77 mm[Hg] Zoila Monae MD Work Phone: [facility] 06-13-2024 12:13-0400 Heart rate 74 /min Zoila Monae MD Work Phone: [facility] 06-13-2024 12:13-0400 Systolic blood pressure 107 mm[Hg] Zoila Monae MD Work Phone: [facility] 03-06-2024 13:46-0400 Body height 153.5 cm Zoila Monae MD Work Phone: [facility] 03-06-2024 13:46-0400 Body mass index (BMI) [Ratio] 19.1 kg/m2 Zoila Monae MD Work Phone: [facility] 03-06-2024 13:46-0400 Body temperature 97.2 [degF] Zoila Monae MD Work Phone: [facility] 03-06-2024 13:46-0400 Body weight 45 kg Zoila Monae MD Work Phone: [facility] 03-06-2024 13:46-0400 Diastolic blood pressure 68 mm[Hg] Zoila Monae MD Work Phone: [facility] 03-06-2024 13:46-0400 Heart rate 106 /min Zoila Monae MD Work Phone: [facility] 03-06-2024 13:46-0400 Systolic blood pressure 101 mm[Hg] Zoila Monae MD Work Phone: [facility] 08-12-2022 15:32-0500 Body temperature 98.1 [degF] MD Tony Amaya Work Phone: [facility] 08-12-2022 15:32-0500 Diastolic blood pressure 69 mm[Hg] MD Tony Amaya Work Phone: [facility] 08-12-2022 15:32-0500 Heart rate 78 /min MD Tony Amaya Work Phone: [facility] 08-12-2022 15:32-0500 Respiratory rate 16 /min MD Tony Amaya Work Phone: [facility] 08-12-2022 15:32-0500 SaO2% (BldA) [Mass fraction] 94 % MD Tony Amaya Work Phone: [facility] 08-12-2022 15:32-0500 Systolic blood pressure 129 mm[Hg] MD Tony Amaya Work Phone: [facility] 08-12-2022 11:00-0500 Inhaled oxygen flow rate 3 L/min MD Tony Amaya Work Phone: [facility] 08-11-2022 12:39-0500 Body height 152.4 cm MD Tony Amaya Work Phone: [facility] 08-11-2022 06:00-0500 Body weight 44.9 kg MD Tony Amaya Work Phone: [facility] 08-10-2022 15:03-0500 Body mass index (BMI) [Ratio] 19.1 kg/m2 MD Tony Amaya Work Phone: [facility] 08-03-2022 14:27-0400 Body weight 0 kg MD Tony Amaya Work Phone: [facility] Encounters Encounter Date Encounter Type Care Provider Facility Start: 07-10-2024 End: 07-10-2024 Suzette Mackay NP Work Phone: [facility] Start: 07-10-2024 End: 07-10-2024 Bamboo flowsheet Zulema Mackay DESPATCH CLERK Work Phone: [facility] Start: 07-10-2024 End: 07-10-2024 Office outpatient visit 15 minutes Zulema Luis Simonebill DESPATCH CLERK Work Phone: [facility] Comment on above: Closed nondisplaced fracture of right patella, unspecified fracture morphology, initial encounter (Primary Dx); Right knee pain, unspecified chronicity Start: 07-10-2024 End: 07-10-2024 ambulatory ZULEMA Smith APLBILL Not Available Start: 07-02-2024 ambulatory Alejandro Flaherty acility:[facility] Start: 06-24-2024 End: 06-24-2024 ambulatory ZULEMA Smith APLING Not Available Start: 06-13-2024 End: 06-13-2024 ambulatory SUKHDEV SAEED Facility:[facility] Start: 06-13-2024 End: 06-13-2024 Patient encounter procedure Zoila Monae MD Work Phone: [facility] Comment on above: Transient neurologic al symptoms (Primary Dx) Start: 06-11-2024 ambulatory ZOILA MONAE [facility] ty:[facility] Start: 06-11-2024 End: 06-11-2024 Subsequent hospital visit by physician Eeg [facility] Work Phone: [facility] Comment on above: Memory deficit [R41. 3] Start: 06-04-2024 End: 06-04-2024 Orders Only Zoila Monae MD Work Phone: [facility] Comment on above: Memory deficit (Prim isamar Dx); Auditory hallucinations; Mentally challenged Start: 05-28-2024 End: 05-28-2024 ambulatory [facility] Start: 03-06-2024 End: 03-06-2024 ambulatory TONY AMAYA Facility:[facility] Start: 03-06-2024 End: 03-06-2024 Patient encounter procedure Zoila Monae MD Work Phone: [facility] Comment on above: Memory deficit (Prim isamar Dx); Auditory hallucinations; Mentally challenged Start: 02-20-2024 Emergency department patient visit REGAN ALDANA [facility] Start: 02-20-2024 End: 02-20-2024 Emergency department patient visit CASSANDRA ALCANTARA [facility] Start: 02-01-2024 End: 02-01-2024 ambulatory TONY AMAYA [facility] Start: 01-01-2024 Emergency department patient visit GURDEEP KIRKPATRICK [facility] Start: 01-01-2024 End: 01-05-2024 Evaluation and management of inpatient [facility] Start: 10-24-2023 End: 10-24-2023 [facility] Start: 01-03-2023 End: 01-07-2023 Evaluation and management of inpatient DR TONY AMAYA . Facility:H1 Start: 11-01-2022 End: 11-02-[address] TONY AMAYA . Facility:[facility]1 Start: 09-30-2022 End: 10-01-[address] ROSALINA BAUITSTA Facility:[facility]1 Start: 09-02-2022 End: 09-02-2022 ambulatory MD Tony Amaya Work Phone: [facility] Work Phone: Start: 09-02-2022 End: 09-02-2022 Patient encounter procedure MD Tony Amaya Work Phone: [facility] [place] Start: 08-25-2022 End: 08-25-[address] ROSALINA BAUTISTA Facility:H1 Start: 08-10-2022 End: 08-12-2022 Admission to same day surgery center MD Tony Amaya Work Phone: [facility] [place] Start: 08-10-2022 End: 08-12-2022 ambulatory MD Tony Amaya Work Phone: [facility] Work Phone: Start: 08-08-2022 End: 08-08-2022 ambulatory MD Tony Amaya Work Phone: [facility] Work Phone: Start: 08-08-2022 End: 08-08-2022 Departed Referred MD Tony Amaya Work Phone: [facility] [place] Start: 08-05-2022 End: 08-05-2022 ambulatory MD Tony Amaya Work Phone: [facility] Work Phone: Start: 08-05-2022 End: 08-05-2022 Patient encounter procedure MD Tony Amaya Work Phone: [facility] Start: 07-30-2022 End: 07-30-[address] ROSALINA BAUTISTA Facility:[facility]1 Start: 07-04-2022 End: 07-06-[address] TONY AMAYA . Facility:[facility]1 Start: 07-04-2022 End: 07-04-[address] ALBERTO FERRO Facility:[facility]1 Start: 06-29-2022 Encounter for preprocedural laboratory examination [facility] Start: 06-27-2022 End: 06-28-2022 ambulatory [facility] . Facility:H1 Start: 06-27-2022 End: 06-28-2022 Encounter for preprocedural laboratory examination [facility] . Facility:[facility]1 Start: 06-22-2022 End: 06-23-2022 ambulatory [facility] . Facility:[facility]1 Start: 06-20-2022 End: 06-20-[address] TONY AMAYA . Facility:[facility]1 Start: 06-20-2022 End: 06-21-2022 ambulatory [facility] . Facility:H1 Start: 03-03-[address] TONY AMAYA . Facili ty:H1 Start: 03-02-2022 End: 03-03-[address] TONY AMAYA . Facility:[facility]1 Start: 01-18-2022 End: 01-21-2022 Evaluation and management of inpatient DR TONY AMAYA . Facility: Start: 03-30-2020 End: 04-06-2020 Evaluation and management of inpatient EMMY TOLEDO Facility:[facility] Procedures Date Procedure Procedure Detail Performing [...] Diabetes Screening Diabetes Screenin g [facility] Start: 08-07-2024 End: 08-07-2024 Patient encounter procedure 08/07/2024 11:00 AM EST Office Visit [facility] [address] [place] [address] Zulema Mackay, DESPATCH CLERK [address] [place] [address] [facility] Start: 07-22-2024 End: 07-22-2024 Patient encounter procedure 07/22/2024 12:30 PM EDT Office Visit [facility] [address] [place] [address] Zulema Mackay, DESPATCH CLERK [address] [place] [address] [facility] Start: 07-10-2024 End: 07-10-2024 Patient encounter procedure 07/10/2024 12:15 PM EDT Office Visit [facility] [address] [place] [address] Zulema Mackay, DESPATCH CLERK [address] [place] [address] Arrived [facility] Comment on above: Arrived Start: 06-13-2024 End: 06-13-2024 Patient encounter procedure 06/13/2024 12:30 PM EDT Office Visit Neurology [facility] [address] [place] [address] [place] [address] [place] [address] Return in about 3 months (around 06/06/2024) for with Dr. Monae. [facility]rology [facility] Comment on above: Return in about 3 mo nths (around 06/06/2024) for with Dr. Monae. Start: 06-11-2024 End: 06-11-2024 Patient encounter procedure 06/11/2024 9:00 AM EDT Appointment [facility] [address] [address] Memory deficit [R41.3] [facility] Comment on above: Memory deficit [R41. 3] Start: 06-02-2024 Covid-19 Vaccine ( season) Covid-19 Vaccine () [facility] Start: 06-02-2024 Influenza vaccination [facility] Start: 03-29-2024 End: 03-29-2024 Patient encounter procedure 03/29/2024 11:45 AM EDT Office Visit Neurology [address] [place] [address] Memory deficit [R41.3] Neurology Comment on above: Memory deficit [R41. 3] Start: 10-02-2023 Behavioral Health Screening Behavioral Health Screening [facility] Start: 06-02-2023 Covid-19 Vaccine ( season) Covid-19 Vaccine () [facility] Start: 08-12-2022 [facility] Start: 08-10-2022 Consultation [facility] Start: 08-10-2022 End: 08-10-2022 [facility] Start: 2014 Shingrix Vaccine (1 of 2) Shingrix Vaccine (1 of 2) [facility] Start: 2009 Lipid panel Lipid Screening [facility] Start: 2009 Screening for malign ant neoplasm of colon [facility] Start: 2004 Screening for malign ant neoplasm of breast Mammogram Screening [facility] Start: 1994 Screening for malign ant neoplasm of cervix HPV Testing [facility] Start: 1985 Screening for malign ant neoplasm of cervix [facility] Start: 1983 Urine microalbumin profile DTaP,Tdap,Td Vaccine (1 - Tdap) [facility] Start: 1982 Anxiety Screening Anxiety Screening [facility] Start: 1982 Depression Screening Depression Scre ening [facility] Start: 1982 Hepatitis C screening Hepatitis C Sc reening [facility] Start: 1982 HIV screening HIV Screening [facility] Acid Fast Bacilli Culture & Smear Acid Fast Bacilli Culture & Smear [facility] Anaerobic microbial culture Anaerobic Culture [facility] Bacteria identified in Urine by Culture Urine Culture [facility] Chlamydia trachomati s [Presence] in Unspecified specimen by Organism specific culture [facility] Work Phone: Chlamydia trachomati s [Presence] in Unspecified specimen by Organism specific culture [facility] EEG EEG NEUROLOGY 12:[address] [facility] End: 03-06-2025 EPIL EEG ROUTINE EPIL EEG ROUTINE NEUROLOGY Routine Memory deficit Auditory hallucinations 1 Occurrences starting 03/06/2024 until 03/06/2025 [facility] Work Phone: Comment on above: 1 Occurrences starti ng 03/06/2024 until 03/06/2025 Fungal Culture Result 1 Fungal Culture Re sult 1 [facility] Fungus identified in Unspecified specimen by Culture [facility] Work Phone: Mycobacterium sp identified in Unspecified specimen by Organism specific culture [facility] Work Phone: Mycology Culture Mycology Culture [facility] Patient referral [facility] Work Phone: [facility] Payers Date Payer Category Payer Self-pay 2017 Medicaid [id number] 1965 Unknown [id number] 2.16.8 [id number] 1965 Unknown [id number] 2.16.84 0.1.233838.3.579.2.593 1965 Unknown [id number] 2.16.84 0.1.965721.3.579.2.593 1964 Unknown [id number] 2.16.84 0.1.710241.3.579.2.593 1965 Unknown [id number] 2.16.84 0.1.982150.3.579.2.593 1964 Unknown [id number] 2.16.84 0.1.117795.3.579.2.593 1964 Unknown [id number] 2.16.84 0.1.847104.3.579.2.593 1964 Unknown [id number] 2.16.84 0.1.953311.3.579.2.593 1964 Unknown [id number] 2.16.84 0.1.878750.3.579.2.593 1964 Unknown [id number] 2.16.84 0.1.772818.3.579.2.593 1964 Unknown [id number] 2.16.84 0.1.302263.3.579.2.593 1964 Unknown [id number] 2.16.84 0.1.257288.3.579.2.593 1964 Unknown [id number] 2.16.84 0.1.789980.3.579.2.593 1964 Unknown [id number] 2.16.84 0.1.464204.3.579.2.593 1964 Unknown [id number] 2.16.84 0.1.269454.3.579.2.593 1964 Unknown [id number] 2.16.84 0.1.228418.3.579.2.1259 1964 Unknown [id number] 2.16.84 0.1.123284.3.579.2.1259 1965 Unknown [id number] 2.16.84 0.1.843017.3.579.2.1259 1960 Self-pay [id number] 1960 Unknown [id number] Unknown [id number] 2.16.8 40.1.108878.3.579.2.531 Social History Date Type Detail Facility [facility] if ever smoked [facility] Work Phone: Start: 1965 Sex Assigned At Female [facility] Start: 08-10-2022 End: 06-24-2024 Tobacco smoking status VAIS Never smoked tobacco (finding) [facility] Start: 03-06-2024 Tobacco smoking status [facility] Tobacco smoking consumption unknown [facility] Start: 03-06-2024 End: 07-10-2024 History of Social function [facility] Start: 03-06-2024 End: 07-10-2024 Area Deprivation Index [facility] National Score (1-10 0), lower number is lower risk 76 [facility] Start: 1965 Sex Assigned At Not on file [facility] Start: 06-24-2024 Tobacco use and exposure Smokeless tobacco non-user [facility] Start: 06-24-2024 End: 07-10-2024 Alcoholic beverage intake Ex-drinker (finding) [facility] Start: 06-21-2024 Gender identity Identifies as female gender (finding) [facility] Start: 06-21-2024 Sexual orientation Heterosexual (finding) [facility] Medical Equipment Procedure Code Equipment Code Equipment Origin al Text Equipment Identifier Dates Thoracotomy Surgical adhesive/sealant, human-derived [id number] [facility] Start: 08-10-2022 Goals Date Patient Goal Desired Activity /State Functional Status Date Assessment Result Facility 08-12-2022 Functional status Patient at Baseline [facility] Work Phone: Mental Status Date Assessment Result Facility 08-12-2022 Cognitive function Cognitive Sta tus Patient at Baseline [facility] Work Phone: Clinical Notes 08-10-2022 [...] y.o. female. RT Knee CT RT knee [facility] 07/05/24 3 weeks ago, Pt had tripped over a sidewalk and Fell landing on her left hand and right knee. DOI 06/19/24, she then hit her chest and rolled over onto her left shoulder hitting her shoulder. She was able to walk afterwards, was taken to [facility] ER on 06/19/24 by her partner [...] was dx with 6 months ago. [place]: XR/06/19/24/[facility] LT hand, RT knee, LT shoulder, [facility] ER 06/19/24, norco, IBU, XR [facility] [...] ct of the right knee done at [facility] on 07/05/24 reveals a non displaced [...] or polycentric), positional orthosis, rigid support, prefabricated, lww-epc-sojsy knee brace. Brace is locked at 0 [...] in the brace documented in this encounter [facility] 06-13-2024 History of Present illness Narrative [facility] Follow up/ Established patient visit Individuals who were included in, or assisted with the encounter were: Emigdio Eli Zoila Monae MD Chief Complaint/Issues: Emigdio Eli is a 58 year old female seen in the [facility] for: Staring spells. [...] that she can have it done in [place] but she would rather come here. She [...] which included preparing to see the patient, dwli-mg-eyxl patient care, completing clinical documentation, obtaining and/or reviewing separately obtained history, performing a medically appropriate examination, counseling and educating the patient/family/caregiver, ordering medications, tests, or procedures, communicating with other HCPs (not separately reported), and communicating results to the patient/family/caregiver. Zoila Monae MD documented in this encounter [facility] 06-13-2024 Note HNO ID: [id number] Author: ZOILA MONAE MD Service: ? Author Type: Physician Type: Progress Notes Filed: 06/13/2024 13:41 Note Text: [facility] Follow up/ Established patient visit Individuals who were included in, or assisted with the encounter were: Emigdio Eli Zoila Monae MD Chief Complaint/Issues: Emigdio Eli is a 58 year old female seen in the [facility] for: Staring spells. [...] that she can have it done in [place] but she would rather come here. She [...] 100 mg b (more content not included)... [facility] 06-11-2024 Note HNO ID: [id number] Author: NARCISA YUSUF MD Service: Neurology General Author Type: Physician Type: Procedures Filed: 06/13/2024 13:25 Note Text: [facility] - Electroencephalogram EMIGDIO ELI : 1965 AGE: 58 SEX: F CSN: [id number] HOSP SVC: LOCATION: ATTENDING PHYSICIAN: DATE OF [...] have been noted. Narcisa Yusuf M.D. Neurology HK:[id number] /[id number] [facility] 06-04-2024 Telephone encounter Note A new neuropsych order has been put in. Thanks Zoila Monae MD [facility] Work Phone: 06-04-2024 Miscellaneous Notes A new neuropsych order has been put in. Thanks Zoila Monae MD documented in this encounter [facility] 06-04-2024 Note HNO ID: [id number] Author: ZOILA MONAE MD Service: ? Author Type: Physician Type: Progress Notes Filed: 06/04/2024 13:22 Note Text: Neuropsychology order had when they tried to get her in. A new order has been put in and good for a year. Zoila Monae MD [facility] 06-04-2024 History of Present illness Narrative Neuropsychology order had when they tried to get her in. A new order has been put in and good for a year. Zoila Monae MD documented in this encounter [facility] 03-06-2024 History of Present illness Narrative Images from the original note were not included. [facility] New Patient Evaluation Consulting Provider: Tony Amaya [address] [facility] [address] The patient presents with a chief complaint [...] year old Rh female seen in the [facility] for: Cognitive evaluation [...] for low IQ. She worked in a [employer] shop and only worked 6 months. She [...] and no carotid or cranial bruit auscultated Buchanan Cognitive Assessment (MoCA) Version 1 Total Score: 17/30 Visuospatial/Executive Alternating [place] Making: Patient successfully draws the pattern without [...] Abnormal ECG COPD (chronic obstructive pulmonary disease) ([facility]) Hyperlipidemia Past Surgical History: Procedure Laterality Date [...] Karthikeyan Linn. Outside Data/Labs: 01/2024 at [facility]: Tox screen negative, Etoh negative, CBC is normal, CMP is normal, Folate 34, B12 148, TSH 0.01 IMPRESSION: Unremarkable intracranial CT angiogram. Unremarkable unenhanced CT of the brain. Unremarkable extracranial CT angiogram Subjective Patient-Entered Data: 03/04/24 - GENERAL NEUROLOGY SCORES I spent a total of 55 minutes on the date of the service which included preparing to see the patient, vkbx-lc-zyei patient care, completing clinical documentation, obtaining and/or reviewing separately obtained history, performing a medically appropriate examination, counseling and educating the patient/family/caregiver, ordering medications, tests, or procedures, communicating with other HCPs (not separately reported), and communicating results to the patient/family/caregiver. Zoila Monae MD documented in this encounter [facility] 03-06-2024 Note HNO ID: [id number] Author: ZOILA MONAE MD Service: ? Author Type: Physician Type: Progress Notes Filed: 03/06/2024 15:39 Note Text: [facility] New Patient Evaluation Consulting Provider: Tony Amaya [address] [address] The patient presents with a chief complaint [...] year old Rh female seen in the [facility] for: Cognitive evaluation [...] Version 1 Total Score: 17/30 Visuospatial/Executive Alternating [place] Making: Patient successfully draws the (more content not included)... [facility] 02-20-2024 Note Procedure ECG 12 lead Performed by: Regan Aldana NP Authorized by: Cassandra Alcantara MD ECG interpreted by ED Physician in the absence of a construction technician: yes Rate: ECG rate: 79 ECG rate assessment: normal Rhythm: Rhythm: sinus rhythm and paced Pacing: Capture: Complete Type of pacing: Atrial Ectopy: Ectopy: none QRS: QRS axis: Normal QRS intervals: Normal QRS conduction: normal ST segments: ST segments: Normal T waves: T waves: normal Regan Aldana NP 02/20/24 190 [facility] 01-05-2024 Note REILLY rec'd consult for [...] telling her that 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 Patient to discharge home this evening. [facility] 01-05-2024 Note Occupational Therapy Occupational Therapy Treatment Patient Name: Emigdio Eli : 1965 Today's Date: 01/05/2024 01/05/24 0852 Time Calculation Start Time 0852 Stop Time 0918 Time Calculation (min) 26 min Problem List Patient Active Problem List Diagnosis Abdominal pain Constipated Dyspepsia COPD (chronic obstructive pulmonary disease) ([facility]) CURRAN (dyspnea on exertion) Pacemaker Hyperlipidemia Dizziness Unspecified severe protein-calorie malnutrition ([facility]) Treatment: 01/05/24851 OT Last Visit OT [...] cristina-hygiene and clothing managment w/ setup from functional tester typewriters Functional Standing Tolerance Time untimed Activity bed<>toilet, [...] mobility;Decreased trunk control for functional activities OT Assessment/PERSONAL INJURY LITIGATION PAR[place]GAL Summary Pt would benefit from continued skilled [...] Toileting, which includes (more content not included)... [facility] 01-04-2024 Note Hospital Medicine Daily Progress Note - 01/04/2024 1:18 PM; Room: [address] [place], [place] [address] Admission: 01/01/2024 9:17 PM; Length of stay: 0 days THE HOSPITALIST TEAM PREFERS TO USE Xunlei FOR COMMUNICATION 7AM-7PM. IF I DO NOT RESPOND WITHIN 15 MINUTES, PLEASE PAGE ME/CALL THROUGH THE TIMBER GIRDLER. FROM 7PM-7AM, PLEASE PAGE [phone](COVR) Code Status: Full Code Barriers to Discharge: [...] 1.66 01/02/2024 Lab Results Component Value Date [id number] 148 (L) 01/03/2024 Imaging ECG 12 lead Atrial-paced rhythm Right axis deviation Pulmonary disease pattern Abnormal ECG When compared with ECG of 30-MAR-2020 12:22, Electronic atrial pacemaker has replaced Sinus rhythm Vent. rate has increased BY 26 BPM QRS duration has decreased Nonspecific T wave abn (more content not included)... [facility] 01-03-2024 Note Physical Therapy Mckenzie wright [...] facilitate returning to/exceedi (more content not included)... [facility] 01-03-2024 Note Adult Nutrition Asse ssment: Name: Emigdio Eli Date: 1965 Date of Visit: 01/03/24 Admission Dx: Dizziness [R42] Nausea and vomiting, unspecified vomiting type [R11.2] Reason for assessment: high risk and MD referral HR: po intake, BMI MD Consult: underweight Information obtained from: patient, medical record, and nursing Past Medical History: Diagnosis Date Abnormal ECG COPD (chronic obstructive pulmonary disease) (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 Because of these symptoms, her appetite [...] based on: actual body weight Calorie needs: 8053-9673 kcals/day based on Equation: 28-32 kcal/kg MSJ [...] loss, reduced energ (more content not included)... [facility] 01-03-2024 Note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
[2024-07-19 19:35] VITALS: BP 111/71; PULSE 75; TEMP 36.4; O2SAT 96
[2024-07-19 19:36] VITALS: BP 111/71; PULSE 75; TEMP 36.4; O2SAT 96; BMI 20.6
[2024-07-19 19:45] VITALS: PULSE 75; O2SAT 96
[2024-07-19] MEDS: 0.9 % SODIUM CHLORIDE 1,000 ML 100 ML IV (19:51)
[2024-07-20] VITALS (9 sets, daily range): BP systolic 89–121; BP diastolic 55–76; PULSE 72–80; TEMP 36.2–36.6; O2SAT 87–96
[2024-07-20] MEDS: ONDANSETRON PF 4 MG/2 ML VIAL IV (03:15)
[2024-07-20] MEDS: 0.9 % SODIUM CHLORIDE 1,000 ML 100 ML IV (05:37)
[2024-07-20 06:21] LABS: Anion Gap 15.8; BUN Creatinine Ratio 21.7; Calcium 7.6 mg/dL (8.5-10.1); Carbon Dioxide 20.7 mmol/L (21.0-32.0); Chloride 110 mmol/L (98-107); Estimated GFR (African America >60 (>=60 mL/min/1.73m^2); Estimated GFR (Non-African Ame >60 (>=60 mL/min/1.73m^2); Glucose 67 mg/dL (74-106); Potassium 3.5 mmol/L (3.5-5.1); Sodium 143 mmol/L (136-145)
[2024-07-20] MEDS: 0.9 % SODIUM CHLORIDE 1,000 ML 1000 ML IV (13:20)
--- NOTE | 2024-07-20 13:42 | P.HP_ITS ---
HPI H&P: HPI History of Present Illness Chief complaint: NAUSEA, COVID POSITIVE ESE COVID+ DEHYDRATION Narrative: 58 y o female presented to ED last night with nausea, vomiting, inability to tolerate PO diet, watery diarrhea x 3 days. Patient was diagnosed with COVID as outpatient. Upon evaluation, patient was clinically dry, with mild elevation in serum creatinine and was admitted overnight for viral gastro enteritis sec to COVID 19. She had few episodes of vomiting overnight and still having lose stools. She feels very weak overall and experiencing orthostatic dizziness. Patient's BP also is slightly low likely because of dehydration and poor PO intake. She has prior hx of C diff and has not been tested for it this visit. Opioid HPI Opioid Management Most Recent Pain and Opioid Data: Last Pain Scale 8 06/19/24 22:15 06/19/24 Last Pain Assessment 07/20/24 12:36 Last ORT Total Score 0 07/19/24 19:42 07/19/24 Last ORT Risk Category Low Risk 07/19/24 19:42 07/19/24 Review of Systems ROS Status of ROS 10 or more systems reviewed and unremark able except as noted in history and below [facility] Medical History (Updated 07/20/24 @ 13:48 by Shaikh Marcia MD) Hypothyroid ?E03.9 - Hypothyroidism, unspecified (ICD-10) Esophagitis ?K20.90 - Esophagitis, unspecified without bleeding (ICD-10) Pancolitis ?K51.00 - Ulcerative (chronic) pancolitis without complications (ICD-10) Pulmonary hypertension ?I27.20 - Pulmonary hypertension, unspecified (ICD-10) Cholecystitis ?K81.9 - Cholecystitis, unspecified (ICD-10) Depression ?F32.A - Depression, unspecified (ICD-10) On home O2 ?Z99.81 - Dependence on supplemental oxygen (ICD-10) Hyperthyroidism ?E05.90 - Thyrotoxicosis, unspecified without thyrotoxic crisis or storm (ICD-10) Scoliosis ?M41.9 - Scoliosis, unspecified (ICD-10) Emphysema lung ?J43.9 - Emphysema, unspecified (ICD-10) Nausea & vomiting ?R11.2 - Nausea with vomiting, unspecified (ICD-10) Pacemaker ?Z95.0 - Presence of cardiac pacemaker (ICD-10) COPD (chronic obstructive pulmonary disease) ?J44.9 - Chronic obstructive pulmonary disease, unspecified (ICD-10) Surgical History History of tonsillectomy ?Z90.89 - Acquired absence of other organs (ICD-10) H/O right wrist surgery ?Z98.890 - Other specified postprocedural states (ICD-10) H/O colectomy ?Z90.49 - Acquired absence of other specified parts of digestive tract (ICD- 10) Family History Mother Family history of COPD (chronic obstructive pulmonary disease) Grandmother Family history of cancer Sister Family history of diabetes mellitus Father Family history of myocardial infarction Social History (Updated 12/27/23 @ 23:45 by Meghana Lo) Within the past year, how often did you have a drink containing alcohol: never Within the past year, how often did you have six or more drinks on one occasion: never Score interpretation: A score less than 3 is consistent with normal alcohol consumption. 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 Known occupational exposures/hazards: No Highest level of school completed/degree received: 10th grade Do you want help with school or training: No Are you now , , , , never or living with a partner: In a typical week, how many times do you talk on the telephone with family, friends, or neighbors: 3 or more times per week How often do you get together with friends or relatives: 3 or more times per week How often do you attend moravian or jewish services: 4 or more times per year Do you belong to any clubs or organizations such as moravian groups unions, fraternal or athletic groups, or school groups: yes Total score: 3 Score interpretation: A score of greater than or equal to 2 indicates the lowest level of social isolation. Little interest or pleasure in doing things: not at all Feeling down, depressed, or hopeless: not at all Feel stressed/tense/nervous/anxious/difficulty sleeping: to some extent Life stressors: unknown source of stress Due to disability, difficulty making decisions: No Do you think of yourself as: bisexual Gender Identity: female Meds Home Medications and Allergies Home Medications ?Medication ?Instructions ?Recorded ?Confirmed ?Type bupropion HCl 300 mg 24 hr tablet, 300 mg PO DAILY 09/25/23 07/19/24 History extended release cholecalciferol (vitamin D3) 50 50 mcg PO DAILY 09/25/23 07/19/24 History mcg (2,000 unit) capsule citalopram 20 mg tablet 20 mg PO DAILY 09/25/23 07/19/24 History lamotrigine 25 mg tablet 50 mg PO BEDTIME 09/25/23 07/19/24 History lansoprazole 30 mg capsule,delayed 30 mg PO DAILY 09/25/23 07/19/24 History release levothyroxine 125 mcg tablet 125 mcg PO DAILY 09/25/23 07/19/24 History simvastatin 20 mg tablet 20 mg PO DAILY 09/25/23 07/19/24 History docusate sodium 100 mg capsule 100 mg PO PRN 12/22/23 07/19/24 History ([facility]) loratadine 10 mg tablet (Allergy 10 mg PO DAILY 12/22/23 07/19/24 History Relief (loratadine)) metronidazole 500 mg tablet 500 mg PO Q8H 7 days #21 tabs 12/27/23 12/28/23 Rx ondansetron 4 mg disintegrating 4 mg PO Q6H PRN nausea and 12/27/23 12/28/23 Rx tablet vomiting #20 tabs sucralfate 1 gram tablet 1 g PO ACHS #120 tabs 12/27/23 12/28/23 Rx metoclopramide HCl 10 mg tablet 10 mg PO ACHS 7 days #28 tabs 12/28/23 Rx (Reglan) albuterol sulfate 2.5 mg/3 mL 2.5 mg (3 mL) inhalation Q4H PRN 07/19/24 07/19/24 Rx (0.083 %) solution for nebulization shortness of breath or wheezing #90 mL dufiavwqyqnvpqb-qwtrogshycohmcd-CO 5 ml PO Q4H PRN cold symptoms #118 07/19/24 07/19/24 Rx 2 mg-30 mg-10 mg/5 mL oral syrup mL (Bromfed DM) meclizine 25 mg tablet 25 mg PO TID 07/19/24 07/19/24 History ondansetron 4 mg disintegrating 4 mg PO Q8H PRN nausea and 07/19/24 Rx tablet vomiting 4 days #16 tabs prednisone 20 mg tablet 40 mg (2 x 20 mg) PO DAILY 5 days 07/19/24 Rx #10 tabs Allergies Allergy/AdvReac Type Severity Reaction Status Date / Time codeine Allergy Mild Vomiting Verified 07/18/24 22:27 oxycodone (From Percocet) Allergy Mild Vomiting Verified 07/18/24 22:27 promethazine Allergy Mild Agitated Verified 07/18/24 22:27 Sulfa (Sulfonamide Allergy Mild Vomiting Verified 07/18/24 22:27 Antibiotics) hydromorphone (From Dilaudid) AdvReac Mild Rash Verified 07/18/24 22:27 prochlorperazine (From AdvReac Mild Unknown Verified 07/18/24 22:27 Compazine) Exam Constitutional Vital Signs, click to edit/add: Last Vital Signs Temp 97.1 F L 07/20/24 04:00 Pulse 78 07/20/24 08:00 Resp 18 07/20/24 08:00 BP 89/55 07/20/24 04:00 Pulse Ox 94 L 07/20/24 04:00 O2 Del Method Room Air 07/20/24 04:00 Documenting provider has reviewed patient's vital signs: yes Common normals: no apparent distress and oriented x3 General appearance: cooperative, ill appearing and frail appearing Respiratory Common normals: normal respiratory effort and clear to auscultation bilaterally Effort & inspection: able to speak in complete sentences Auscultation: clear to auscultation bilaterally Cardio Common normals: regular rate, S1 normal heart sound and S2 normal heart sound Rate: regular rate Heart sounds: S1 normal and S2 normal GI Common normals: Normal to inspection, nondistended, normoactive bowel sounds present, soft to palpation, non-tender and no hepatosplenomegaly Palpation: soft and no hepatosplenomegaly Extremity Common normals: no clubbing, cyanosis or edema Neuro Common normals: oriented x3, moves all extremities and no focal motor deficits Psych Common normals: mental status grossly normal, denies hallucinations, denies homicidal ideation and denies suicidal ideation Results Labs Labs: Short CBC 07/19/24 Range/Units 17:16 WBC 3.4 L (4.0-11.0) 10^3/uL Hgb 14.4 (12.0-16.0) g/dL Hct 45.3 (36.0-48.0) % Plt Count 183 (150-450) 10^3/uL BMP 07/19/24 07/20/24 17:16 06:05 Sodium 141 143 Potassium 3.6 3.5 Chloride 102 110 H Carbon Dioxide 27.9 20.7 L BUN 20.0 H 20.0 H Creatinine 1.20 H 0.92 Glucose 87 67 L Calcium 9.2 7.6 L Liver Function 07/19/24 Range/Units 17:16 Total Bilirubin 0.7 (0.2-1.0) mg/dL AST 27 (15-37) U/L ALT 24 (14-59) U/L Alkaline Phosphatase 99 (46-116) U/L Albumin 3.7 (3.4-5.0) g/dL Assessment and Plan Assessment and Plan (1) Gastroenteritis due to COVID-19 virus: (2) Hypotension due to hypovolemia: (3) Dehydration: (4) COPD (chronic obstructive pulmonary disease): Qualifiers: COPD type: unspecified COPD Qualified Code(s): J44.9 - Chronic obstructive pulmonary disease, unspecified (5) Hypothyroid: Qualifiers: Hypothyroidism type: acquired Qualified Code(s): E03.9 - Hypothyroidism, unspecified Plan C/w IV fluids. Patient on Zofran as needed for nausea/vomiting. Advanced diet as tolerated. Check C diff. If negative, will order Loperamide as needed for diarrhea. PT/OT eval for generalized weakness. IV Protonix for GERD/reflux. Ordered 1 L IVF bolus of NS for hypovolemia/hypotension. Afterwards, I will start her on 0.45 NS at 125 /hr as she is also hypernatremic likely due to dehydration. Tolerating PO medications now. Resumed home medications. C/w isolation. No need for steroids/remdisvir as she has no resp symptoms/and is not hypoxic. Monitor closely. If persistent GI symptoms and no clinical improvement - will consider CT abd/pelvis.
[2024-07-20] MEDS: SODIUM CHLORIDE 0.45 % 1,000 ML 100 ML IV (15:16)
[2024-07-20 19:30] LABS: C. Difficile PCR NEGATIVE
--- NOTE | 2024-07-20 20:11 | RESP.RT ---
Sp02 was 87% on room air. Placed pt on 2L nasal cannula and Sp02 increased to 92%. Pt stated she wears 2L PRN at home at night.
--- NOTE | 2024-07-20 20:13 | RESP.RT ---
No PRN breathing tx given. Pt denies need.
[2024-07-20] MEDS: LAMOTRIGINE 25 MG TABLET 50 MG PO (21:14)
[2024-07-20] MEDS: ATORVASTATIN CALCIUM 10 MG TABLET PO (21:14)
[2024-07-21] VITALS (10 sets, daily range): BP systolic 92–114; BP diastolic 58–74; PULSE 70–80; TEMP 36.5–36.7; O2SAT 90–98
[2024-07-21] MEDS: SODIUM CHLORIDE 0.45 % 1,000 ML 100 ML IV (00:16)
[2024-07-21 05:46] LABS: Hematocrit 39.4 % (36.0-48.0); Hemoglobin 12.5 g/dL (12.0-16.0); Mean Corpuscular HGB Conc 31.7 g/dL (29.9-35.2); Mean Corpuscular Hemoglobin 28.7 pg (26.7-34.0); Mean Corpuscular Volume 90.4 fL (81.0-99.0); Mean Platelet Volume 9.3 fL (9.5-13.5); Platelet Count 173 10^3/uL (150-450); Red Blood Count 4.36 10^6/uL (4.20-5.40); Red Cell Distribution Width 13.3 % (11.0-15.0); White Blood Count 2.1 10^3/uL (4.0-11.0)
[2024-07-21] MEDS: LEVOTHYROXINE SODIUM 125 MCG TABLET PO (06:03)
[2024-07-21 06:08] LABS: Alanine Aminotransferase 16 U/L (14-59); Albumin Globulin Ratio 0.8; Albumin Level 2.6 g/dL (3.4-5.0); Alkaline Phosphatase 89 U/L (46-116); Anion Gap 13.1; Aspartate Amino Transferase 19 U/L (15-37); Bilirubin Total 0.3 mg/dL (0.2-1.0); Carbon Dioxide 26.6 mmol/L (21.0-32.0); Chloride 109 mmol/L (98-107); Estimated GFR (African America >60 (>=60 mL/min/1.73m^2); Estimated GFR (Non-African Ame >60 (>=60 mL/min/1.73m^2); Globulin 3.2 g/dL; Glucose 104 mg/dL (74-106); Potassium 3.7 mmol/L (3.5-5.1); Sodium 145 mmol/L (136-145); Total Protein 5.8 g/dL (6.4-8.2)
[2024-07-21 06:18] LABS: Eosinophils Absolute Manual 0.04 10^3/uL (0.00-0.70); Monocytes Absolute Manual 0.12 10^3/uL (0.30-0.80); Segmented Neut Absolute Manual 0.86 10^3/uL (1.4-6.5)
[2024-07-21 06:19] LABS: Lymphocytes Absolute Manual 1.07 10^3/uL (1.20-3.80)
--- NOTE | 2024-07-21 08:29 | P.PN_ITS ---
Progress Note: Subjective Subjective Interval history: Patient well-known to me from the office, patient with increasing cough since yesterday, discussed care with nurse who had seen her the previous day and agree that her cough is worse today. Patient became hypoxic overnight with O2 sat of 87%. Relative hypoxia with O2 sat of 91% on 2 L. That is somewhat better this morning. When I walked in the room patient was sleeping, awakened easily, significant cough throughout the evaluation. Nonproductive per patient but sounds loose. Exam Constitutional Vital Signs, click to edit/add: Last Vital Signs Temp 97.7 F 07/21/24 04:00 Pulse 71 07/21/24 04:00 Resp 18 07/21/24 04:00 BP 103/70 07/21/24 04:00 Pulse Ox 98 07/21/24 04:00 O2 Del Method Nasal Cannula 07/21/24 04:00 O2 Flow Rate 2 07/21/24 04:00 Documenting provider has reviewed patient's vital signs: yes Common normals: apparent distress (Mild conversational dyspnea with respiratory distress with severe cough) Chest Common normals: inspection of chest normal Respiratory Common normals: abnormal respiratory effort (Mild conversational dyspnea with moderate dyspnea with severe cough) Auscultation: rhonchi and diminished lung sounds; no egophony Cardio Common normals: regular rate and regular rhythm GI Common normals: Normal to inspection, nondistended, normoactive bowel sounds present, soft to palpation and non-tender Extremity Common normals: normal to inspection and no clubbing, cyanosis or edema; limited ROM (Left wrist and cast, right knee brace on) Neuro Common normals: oriented x3, CN's II-XII intact bilaterally and moves all extremities Progress Note: Objective Labs Labs: Short CBC 07/21/24 Range/Units 05:35 WBC 2.1 L (4.0-11.0) 10^3/uL Hgb 12.5 (12.0-16.0) g/dL Hct 39.4 (36.0-48.0) % Plt Count 173 (150-450) 10^3/uL BMP 07/21/24 05:35 Sodium 145 Potassium 3.7 Chloride 109 H Carbon Dioxide 26.6 BUN 10.0 Creatinine 0.91 Glucose 104 Calcium 8.0 L Liver Function 07/21/24 Range/Units 05:35 Total Bilirubin 0.3 (0.2-1.0) mg/dL AST 19 (15-37) U/L ALT 16 (14-59) U/L Alkaline Phosphatase 89 (46-116) U/L Albumin 2.6 L (3.4-5.0) g/dL Progress Note: A&P Assessment and Plan (1) Gastroenteritis due to COVID-19 virus: (2) Hypotension due to hypovolemia: (3) Dehydration: (4) COPD (chronic obstructive pulmonary disease): Qualifiers: COPD type: unspecified COPD Qualified Code(s): J44.9 - Chronic obstructive pulmonary disease, unspecified (5) Hypothyroid: Qualifiers: Hypothyroidism type: acquired Qualified Code(s): E03.9 - Hypothyroidism, unspecified (6) ESE (acute kidney injury): (7) COVID-19: (8) Effusion of knee joint right: (9) Contusion of hand, left: (10) Chest pain: (11) Pulmonary hypertension: (12) Neutropenia: (13) Respiratory distress: (14) Acute respiratory failure with hypoxia: (15) Depression: (16) Hypercholesterolemia: (17) GERD (gastroesophageal reflux disease): Plan Admission findings: Respiratory distress, mild neutropenia, acute kidney injury (baseline creatinine of 0.87, admission creatinine of 1.2 equals 138% above baseline) secondary to dehydration secondary to COVID-19, complicated by acute exacerbation of COPD secondary to acute COVID-19 Dehydration-acute kidney injury is resolved, will saline lock today Chest pain this a.m.-pleuritic in nature, sharp in nature. Will check EKG. Held off on troponins as not helpful in the face of COVID-19 Acute exacerbation of COPD secondary to acute COVID-19: Patient was not hypoxic initially but became hypoxic last night. Discussing care with patient and nurse that took care of her yesterday agree that her cough and breathing pattern is worse than the previous day. With the change in respiratory status, will start patient on remdesivir, steroids, azithromycin, Pepcid, Zyrtec. With the change in clinical status will change patient to inpatient status having failed the initial observational time. Severe neutropenia with an ANC of 0.86. Could be viral related. Will need close monitoring as an outpatient as well. With neutropenia also an indication for treatment as outlined above Hypoglycemia-improved Hypotension-related to dehydration-improved this morning. Blood pressure still little soft though, encourage p.o. intake. Pulmonary hypertension-blood pressure as outlined above, with that need to keep her blood pressure on the low side Left wrist fracture, right knee Fracture-continue with brace on right knee, has cast on left wrist, follow-up with Ortho as an outpatient GERD-continue with home medications but will change patient from omeprazole to Pepcid for beneficial effects with COVID-19 Hypercholesterolemia-continue with home medications Hypothyroidism-continue with home medications Depression-continue with home medications Admission status: Patient was a plan admitted to the observational status due to dehydration secondary to COVID-19, yesterday the early evening her respiratory status deteriorated with hypoxia and relative hypoxia after being placed on supplemental oxygen, having failed initial observation time period, medically necessary treatment will span 2 midnights. Change patient to inpatient status.
[2024-07-21] MEDS: MECLIZINE HCL 12.5 MG TABLET 25 MG PO (08:37)
[2024-07-21] MEDS: BUPROPION HCL 150 MG XL TABLET 24H 300 MG PO (08:37)
[2024-07-21] MEDS: CHOLECALCIFEROL (VITAMIN D3) 25 MCG/1,000 UNITS TABLET 50 MCG PO (08:37)
[2024-07-21] MEDS: CETIRIZINE HCL 10 MG TABLET 20 MG PO (08:38)
[2024-07-21] MEDS: DEXAMETHASONE SOD PHOS 4 MG/ML VIAL 6 MG IV (08:40)
[2024-07-21] MEDS: CITALOPRAM HYDROBROMIDE 20 MG TABLET PO (08:40)
[2024-07-21] MEDS: FAMOTIDINE 20 MG TABLET 40 MG PO ×2 (08:40→21:08)
[2024-07-21] MEDS: AZITHROMYCIN 250 MG TABLET 500 MG PO (08:40)
--- NOTE | 2024-07-21 08:41 | ECG_ITS ---
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
[2024-07-21] MEDS: BENZONATATE 100 MG CAPSULE 200 MG PO (08:59)
[2024-07-21] MEDS: REMDESIVIR 200 MG in 0.9 % SODIUM CHLORIDE 250 ML 250 MG IV (08:59)
[2024-07-21] MEDS: KETOROLAC TROMETHAMINE 30 MG/ML VIAL 15 MG IVP (09:52)
[2024-07-21] MEDS: ALBUTEROL SULFATE 200 PUFF/6.7 GM INHALER IH ×3 (11:21→23:32)
[2024-07-21] MEDS: IPRATROPIUM BROMIDE 200 PUFF/12.9 GM INHALER IH ×3 (12:20→23:32)
[2024-07-21] MEDS: ATORVASTATIN CALCIUM 10 MG TABLET PO (21:08)
[2024-07-21] MEDS: LAMOTRIGINE 25 MG TABLET 50 MG PO (21:08)
[2024-07-22 03:00] VITALS: BP 116/69; PULSE 79; TEMP 36.6; O2SAT 94
[2024-07-22 05:23] VITALS: PULSE 79; O2SAT 91
[2024-07-22] MEDS: IPRATROPIUM BROMIDE 200 PUFF/12.9 GM INHALER IH ×2 (05:23→10:01)
[2024-07-22] MEDS: ALBUTEROL SULFATE 200 PUFF/6.7 GM INHALER IH ×2 (05:23→10:00)
[2024-07-22 05:54] LABS: Hematocrit 38.1 % (36.0-48.0); Hemoglobin 12.5 g/dL (12.0-16.0); Lymphocytes Absolute Auto 0.9 10^3/uL (1.2-3.8); Lymphocytes Percent Auto 28.4 % (20.5-60.0); Mean Corpuscular HGB Conc 32.8 g/dL (29.9-35.2); Mean Corpuscular Hemoglobin 29.2 pg (26.7-34.0); Mean Platelet Volume 9.3 fL (9.5-13.5); Monocytes Absolute Auto 0.3 10^3/uL (0.3-0.8); Monocytes Percent Auto 8.3 % (1.7-12.0); Neutrophils Absolute Auto 2.1 10^3/uL (1.4-6.5); Neutrophils Percent Auto 63.3 % (43.0-75.0); Platelet Count 164 10^3/uL (150-450); Red Blood Count 4.28 10^6/uL (4.20-5.40); Red Cell Distribution Width 13.3 % (11.0-15.0); White Blood Count 3.2 10^3/uL (4.0-11.0)
[2024-07-22] MEDS: LEVOTHYROXINE SODIUM 125 MCG TABLET PO (05:56)
[2024-07-22 06:08] LABS: Alanine Aminotransferase 15 U/L (14-59); Albumin Globulin Ratio 0.8; Albumin Level 2.7 g/dL (3.4-5.0); Alkaline Phosphatase 87 U/L (46-116); Anion Gap 10.7; Aspartate Amino Transferase 21 U/L (15-37); BUN Creatinine Ratio 14.4; Bilirubin Total 0.2 mg/dL (0.2-1.0); Calcium 8.7 mg/dL (8.5-10.1); Carbon Dioxide 26.7 mmol/L (21.0-32.0); Chloride 108 mmol/L (98-107); Estimated GFR (African America >60 (>=60 mL/min/1.73m^2); Estimated GFR (Non-African Ame 59 (>=60 mL/min/1.73m^2); Globulin 3.3 g/dL; Glucose 118 mg/dL (74-106); Potassium 3.4 mmol/L (3.5-5.1); Sodium 142 mmol/L (136-145)
--- NOTE | 2024-07-22 07:11 | P.DS_ITS ---
DS: Providers Provider Date of admission: 07/21/24 08:47 Primary care physician: Paulo Turner MD Consults: 07/20/24 09:00 Occupational Therapy Eval and Treat Routine Reason for consultation: weakness Has provider been notified: No Physical Therapy Eval and Treat Routine Reason for consultation: Weakness Has provider been notified: No DS: Diagnosis Discharge Diagnosis (1) Gastroenteritis due to COVID-19 virus: (2) Hypotension due to hypovolemia: (3) Dehydration: (4) COPD (chronic obstructive pulmonary disease): Qualifiers: COPD type: unspecified COPD Qualified Code(s): J44.9 - Chronic obstructive pulmonary disease, unspecified (5) Hypothyroid: Qualifiers: Hypothyroidism type: acquired Qualified Code(s): E03.9 - Hypothyroidism, unspecified (6) ESE (acute kidney injury): (7) COVID-19: (8) Effusion of knee joint right: (9) Contusion of hand, left: (10) Chest pain: (11) Pulmonary hypertension: (12) Neutropenia: (13) Respiratory distress: (14) Acute respiratory failure with hypoxia: (15) Depression: (16) Hypercholesterolemia: (17) GERD (gastroesophageal reflux disease): Plan Admission findings: Respiratory distress, mild neutropenia, acute kidney injury (baseline creatinine of 0.87, admission creatinine of 1.2 equals 138% above bas elin) secondary to dehydration secondary to COVID-19, complicated by acute exacerbation of COPD secondary to acute COVID-19. On day 2 patient developed neutropenia with ANC of 0.8., Patient developed acute hypoxia with O2 sat of 87% and then a relative hypoxia of 91% on 2 L. Patient developed this in the initial observational period. Patient was changed to inpatient status based on medically necessary treatment spanning 2 midnights Dehydration-acute kidney injury is resolved at the time of discharge Chest pain this a.m.-pleuritic in nature, sharp in nature. Improved after Toradol and steroids Acute exacerbation of COPD secondary to acute COVID-19 with acute hypoxia O2 sat of 87% and after supplementation O2 sat of 91% on 2 L for relative hypoxia: Improved at the time of discharge. Severe neutropenia with an ANC of 0.86. Improved at the time of discharge Hypoglycemia-resolved at the time of discharge Hypotension-related to dehydration- Improved at the time of discharge Pulmonary hypertension-stable at the time of discharge Left wrist fracture, right knee Fracture- Pain control at the time of discharge GERD-stable to time of discharge Hypercholesterolemia-continue with home medications Hypothyroidism-continue with home medications Depression-continue with home medications Admission status: Patient was a plan admitted to the observational status due to dehydration secondary to COVID-19, yesterday the early evening her respiratory status deteriorated with hypoxia and relative hypoxia after being placed on supplemental oxygen, significant neutropenia with an ANC of less than 1, having failed initial observation time period, medically necessary treatment will span 2 midnights. Change patient to inpatient status. ? DS: Summary Hospital Course Hospital Course: Patient tested positive for COVID-19, had increasing nausea and vomiting and presented to the emergency room. Found to have acute kidney injury tachycardia, respiratory distress. He was given IV fluids overnight. Progressively worse cough and shortness of breath. This was confirmed by nursing staff who is seen her the previous day. She also developed acute hypoxia with O2 sat of 87%, and then a relative hypoxia of 91% on supplemental oxygen of 2 L. She has a history of COPD but does not wear supplemental oxygen at home. Although acute kidney injury had resolved, the COVID-19 causing exacerbation of COPD with acute hypoxia and neutropenia, patient was placed on remdesivir, steroids, Zyrtec, Pepcid. Over the next 24 hours patient was able to be weaned off of her supplemental oxygen. No significant hypoxia although she did have a relative hypoxia with O2 sat of 90% on room air. Her lung exam is much improved, Compared to yesterday. She feels overall improved. Less dyspnea with activity in the room. She did develop hypokalemia this morning, we will supplement that, give her IV doses this morning of the Zithromax and remdesivir. Discharge patient to home with follow-up in the office next week. She can call the office if she has any new symptoms that develop prior to that visit. Status at Discharge Overall status at discharge: patient is not back to baseline Time Spent with Patient Time attestation: Total time spent providing and/or coordinating discharge services: Time spent: greater than 30 minutes Exam Constitutional Vital Signs, click to edit/add: Last Vital Signs Temp 97.8 F 07/22/24 03:00 Pulse 79 07/22/24 05:23 Resp 16 07/22/24 05:23 BP 116/69 07/22/24 03:00 Pulse Ox 91 L 07/22/24 05:23 O2 Del Method Room Air 07/22/24 05:23 O2 Flow Rate 2 07/21/24 04:00 Documenting provider has reviewed patient's vital signs: yes Common normals: no apparent distress (Some throughout the evaluation but resolved conversation dyspnea) Chest Common normals: inspection of chest normal Respiratory Common normals: normal respiratory effort (Still has cough during the evaluation but no conversational dyspnea today) Auscultation: rhonchi (Minimal rhonchi today much improved) and diminished lung sounds; no egophony Cardio Common normals: regular rate and regular rhythm GI Common normals: Normal to inspection, nondistended, normoactive bowel sounds present, soft to palpation and non-tender Extremity Common normals: no clubbing, cyanosis or edema; abnormal to inspection (Cast left wrist, brace right knee) and limited ROM (Left wrist and cast, right knee brace on) Neuro Common normals: oriented x3, CN's II-XII intact bilaterally and moves all extremities DS: Data Data Completed and Pending Labs on day of discharge: Labs from last 24 hours 07/22/24 05:40 WBC 3.2 L RBC 4.28 Hgb 12.5 Hct 38.1 MCV 89.0 MCH 29.2 MCHC 32.8 RDW 13.3 Plt Count 164 MPV 9.3 L Neut % (Auto) 63.3 Lymph % (Auto) 28.4 Bryan % (Auto) 8.3 Eos % (Auto) 0.0 L Baso % (Auto) 0.0 L Neut # (Auto) 2.1 Lymph # (Auto) 0.9 L Bryan # (Auto) 0.3 Eos # (Auto) 0.0 Baso # (Auto) 0.0 Abs Immat Gran (auto) 0.00 Imm/Tot Granulo (auto) 0.0 Sodium 142 Potassium 3.4 L Chloride 108 H Carbon Dioxide 26.7 Anion Gap 10.7 BUN 14.0 Creatinine 0.97 Est GFR ( Amer) >60 Est GFR (Non-Af Amer) 59 L BUN/Creatinine Ratio 14.4 Glucose 118 H Calcium 8.7 Total Bilirubin 0.2 AST 21 ALT 15 Alkaline Phosphatase 87 Total Protein 6.0 L Albumin 2.7 L Globulin 3.3 Albumin/Globulin Ratio 0.8 Discharge Plan Discharge Disposition: Home, Self-Care Discharge Medications: New prednisone 10 mg tablet 40 mg PO DAILY Qty: 32 0RF Rx Instructions: 4/day for 3 days, 3/day for 3 days, 2/day for 3 days, 1/day for 3 days, 1/2 /day for 4 days Paxlovid 300 mg (150 mg x 2)-100 mg tablets,dose pack See Rx Instructions .ROUTE .COMPLEX Qty: 30 0RF Rx Instructions: take TWO 150 mg tablets of nirmatrelvir with ONE 100 mg tablet of ritonavir twice daily for 5 days azithromycin 500 mg tablet 500 mg PO DAILY 2 Days Qty: 2 0RF Rx Instructions: start on day 2 of therapy Continued meclizine 25 mg tablet 25 mg PO TID bupropion HCl 300 mg tablet extended release 24 hr 300 mg PO DAILY cholecalciferol (vitamin D3) 50 mcg (2,000 unit) capsule 50 mcg PO DAILY citalopram 20 mg tablet 20 mg PO DAILY lamotrigine 25 mg tablet 50 mg PO BEDTIME lansoprazole 30 mg capsule,delayed release(DR/EC) 30 mg PO DAILY levothyroxine 125 mcg tablet 125 mcg PO DAILY simvastatin 20 mg tablet 20 mg PO DAILY loratadine [Allergy Relief (loratadine)] 10 mg tablet 10 mg PO DAILY docusate sodium [Col-Rite] 100 mg capsule 100 mg PO PRN sucralfate 1 gram Tablet 1 g PO ACHS Qty: 120 11RF Patient Comments: pt. was dc'd with these scripts has not started metronidazole 500 mg tablet 500 mg PO Q8H 7 Days Qty: 21 0RF Patient Comments: pt. was dc'd with these scripts has not started ondansetron 4 mg tablet,disintegrating 4 mg PO Q6H PRN (Reason: nausea and vomiting) Qty: 20 3RF Patient Comments: pt. was dc'd with these scripts has not started metoclopramide HCl [Reglan] 10 mg tablet 10 mg PO ACHS 7 Days Qty: 28 0RF [id number] [Bromfed DM] 2-30-10 mg/5 mL syrup 5 ml PO Q4H PRN (Reason: cold symptoms) Qty: 118 0RF prednisone 20 mg tablet 40 mg PO DAILY 5 Days Qty: 10 0RF albuterol sulfate 2.5 mg /3 mL (0.083 %) solution for nebulization 2.5 mg inhalation Q4H PRN (Reason: shortness of breath or wheezing) Qty: 90 0RF ondansetron 4 mg tablet,disintegrating 4 mg PO Q8H PRN (Reason: nausea and vomiting) 4 Days Qty: 16 0RF Print Language: Lithuanian Forms: Portal Instructions
[2024-07-22] MEDS: BUPROPION HCL 150 MG XL TABLET 24H 300 MG PO (08:07)
[2024-07-22] MEDS: REMDESIVIR 100 MG in 0.9 % SODIUM CHLORIDE 100 ML 200 MG IV (08:07)
[2024-07-22] MEDS: FAMOTIDINE 20 MG TABLET 40 MG PO (08:07)
[2024-07-22] MEDS: CETIRIZINE HCL 10 MG TABLET 20 MG PO (08:07)
[2024-07-22] MEDS: AZITHROMYCIN 250 MG TABLET 500 MG PO (08:07)
[2024-07-22] MEDS: CITALOPRAM HYDROBROMIDE 20 MG TABLET PO (08:07)
[2024-07-22] MEDS: DEXAMETHASONE SOD PHOS 4 MG/ML VIAL 6 MG IV (08:08)
[2024-07-22] MEDS: CHOLECALCIFEROL (VITAMIN D3) 25 MCG/1,000 UNITS TABLET 50 MCG PO (08:08)
[2024-07-22] MEDS: POTASSIUM CHLORIDE 10 MEQ ER TABLET 20 MEQ PO (08:08)
[2024-07-22 08:10] VITALS: BP 99/63; PULSE 83; TEMP 36.7; O2SAT 97
[2024-07-22 10:03] VITALS: O2SAT 97
--- NOTE | 2024-07-23 13:16 | CM.DCFOLLOWU ---
07/23- 1st attempt. No answer
--- NOTE | 2024-07-24 14:34 | CM.DCFOLLOWU ---
07/24 2nd attempt. No answer
--- NOTE | 2024-07-25 11:31 | CM.DCFOLLOWU ---
2nd attempt 07/25/24, no answer
--- NOTE | 2024-07-25 11:39 | CM.DCFOLLOWU ---
2nd attempt 07/25/24, no answer
--- NOTE | 2024-07-26 10:58 | CM.DCFOLLOWU ---
Person spoke with: Martha How are you feeling? Much better How is your pain? No pain Did you understand your discharge instructions? Yes Do you have any questions about your discharge instructions? No Were you given any prescriptions at discharge? Yes Were you able to get your prescriptions filled? Yes Do you understand how to take your medications as ordered? Yes Do you have any questions about your follow up appointment and do you plan to keep your follow up appointment? Nov and yes going to appt Is there anything else that you would like to discuss? No Questions/Comments/Concerns/Other:
== END 2024-07-22 12:13 | disposition home or self-care (01) | DRG 137 ==
LOC: ER 18:30 → ICU 19:19 → MS 07-20 14:05
PROVIDERS: Internal Medicine; Registered Nurse; Admitting Provider Family Medicine; Emergency Provider Emergency Medicine; PCP Family Medicine; Visit Provider Family Medicine
DX: U07.1 COVID-19 (principal); A08.39 Other viral enteritis; I95.9 Hypotension, unspecified; E86.1 Hypovolemia; E86.0 Dehydration; E03.9 Hypothyroidism, unspecified; N17.9 Acute kidney failure, unspecified; R07.81 Pleurodynia; D70.9 Neutropenia, unspecified; E16.2 Hypoglycemia, unspecified; I27.20 Pulmonary hypertension, unspecified; K21.9 Gastro-esophageal reflux disease without esophagitis; E78.00 Pure hypercholesterolemia, unspecified; F32.A Depression, unspecified; Z79.899 Other long term (current) drug therapy; J43.9 Emphysema, unspecified; Z95.0 Presence of cardiac pacemaker; J96.01 Acute respiratory failure with hypoxia; Z90.49 Acquired absence of other specified parts of digestive tract; M25.461 Effusion, right knee; R07.9 Chest pain, unspecified; S62.102D Fracture of unspecified carpal bone, left wrist, subsequent encounter for fracture with routine healing; S82.001D Unspecified fracture of right patella, subsequent encounter for closed fracture with routine healing; X58.XXXD Exposure to other specified factors, subsequent encounter; E87.6 Hypokalemia; Z79.890 Hormone replacement therapy; S60.222D Contusion of left hand, subsequent encounter
CPT/HCPCS: 36415; 71046; 80048; 80053; 85007; 85025; 85027; 87070; 87493; 87804; 87811; 93005; 94640; 94761; 96361; 96374; 96375; 97161; 99284; 99285; G0378; J0248; J1100; J1885; J2405; Q0162

== ENCOUNTER 2024-11-25 12:12 | Inpatient (IN) | payer OTHER, SELFPAY ==
[2024-11-25] VITALS (21 sets, daily range): BP systolic 83–97; BP diastolic 46–65; PULSE 74–87; TEMP 36.8–39.2; O2SAT 86–98; BMI 19.5; BMI 20.7
[2024-11-25 13:06] LABS: Hematocrit 42.4 % (36.0-48.0); Hemoglobin 13.8 g/dL (12.0-16.0); Immature Granulocytes Abs Auto 0.01 10^3/uL (0.00-0.03); Immature Granulocytes Pct Auto 0.3 % (0.0-0.5); Lymphocytes Absolute Auto 0.5 10^3/uL (1.2-3.8); Mean Corpuscular HGB Conc 32.5 g/dL (29.9-35.2); Mean Corpuscular Hemoglobin 28.3 pg (26.7-34.0); Mean Corpuscular Volume 87.1 fL (81.0-99.0); Mean Platelet Volume 10.7 fL (9.5-13.5); Monocytes Absolute Auto 0.3 10^3/uL (0.3-0.8); Monocytes Percent Auto 8.6 % (1.7-12.0); Neutrophils Absolute Auto 2.9 10^3/uL (1.4-6.5); Neutrophils Percent Auto 77.1 % (43.0-75.0); Platelet Count 168 10^3/uL (150-450); Red Blood Count 4.87 10^6/uL (4.20-5.40); Red Cell Distribution Width 13.5 % (11.0-15.0); White Blood Count 3.7 10^3/uL (4.0-11.0)
[2024-11-25] MEDS: ACETAMINOPHEN 325 MG TABLET 650 MG PO (13:19)
[2024-11-25 13:20] LABS: INR 1.13; Prothrombin Time 11.8 sec (9.0-11.6)
[2024-11-25 13:21] LABS: Alanine Aminotransferase 85 U/L (14-59); Albumin Level 3.5 g/dL (3.4-5.0); Alkaline Phosphatase 106 U/L (46-116); Anion Gap 14.6; Aspartate Amino Transferase 109 U/L (15-37); BUN Creatinine Ratio 13.6; Bilirubin Total 0.4 mg/dL (0.2-1.0); Carbon Dioxide 26.2 mmol/L (21.0-32.0); Chloride 99 mmol/L (98-107); Estimated GFR (African America 46 (>=60 mL/min/1.73m^2); Estimated GFR (Non-African Ame 38 (>=60 mL/min/1.73m^2); Globulin 3.5 g/dL; Glucose 108 mg/dL (74-106); Potassium 3.8 mmol/L (3.5-5.1); Sodium 136 mmol/L (136-145)
[2024-11-25 13:21] LABS: Influenza Virus A Antigen Positive; Influenza Virus B Antigen Negative; Internal Control Within Normal Limits; SARS-CoV-2 Ag NEGATIVE (NEGATIVE)
[2024-11-25] MEDS: ONDANSETRON PF 4 MG/2 ML VIAL IV ×2 (13:57→21:22)
--- NOTE | 2024-11-25 14:28 | ED_ITS ---
HPI - Nausea/Vomiting/Diarrhea General Chief complaint: Fever Stated complaint: FLU LIKE SYMPTOMS FEVER Time Seen by Provider: 11/25/24 12:29 Source: patient Mode of arrival: Wheelchair Limitations: no limitations History of Present Illness HPI Narrative: The patient is a 59 years old female with history of COPD as well as she use oxygen at home as needed, is coming to us with 2 main concern the first 1 is that she has not had her oxygen for the last 2 weeks because some company came at home and took it, the patient mentioned that she is feeling dizzy when walking and that she is short of breath her pulse ox dropping below 90% at home Patient at the moment is coming to us with 4 days history of fever associated with nausea vomiting and decreased p.o. intake she has not been able to keep anything p.o. 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 Related Data Home Medications ?Medication ?Instructions ?Recorded ?Confirmed bupropion HCl 300 mg 24 hr tablet, 300 mg PO DAILY 09/25/23 11/25/24 extended release cholecalciferol (vitamin D3) 50 50 mcg PO DAILY 09/25/23 11/25/24 mcg (2,000 unit) capsule citalopram 20 mg tablet 20 mg PO DAILY 09/25/23 11/25/24 lamotrigine 25 mg tablet 50 mg PO BEDTIME 09/25/23 11/25/24 lansoprazole 30 mg capsule,delayed 30 mg PO DAILY 09/25/23 11/25/24 release levothyroxine 125 mcg tablet 125 mcg PO DAILY 09/25/23 11/25/24 simvastatin 20 mg tablet 20 mg PO DAILY 09/25/23 11/25/24 docusate sodium 100 mg capsule 100 mg PO PRN 12/22/23 11/25/24 ([facility]) loratadine 10 mg tablet (Allergy 10 mg PO DAILY 12/22/23 11/25/24 Relief (loratadine)) meclizine 25 mg tablet 25 mg PO TID 07/19/24 11/25/24 Previous Rx's ?Medication ?Instructions ?Recorded sucralfate 1 gram tablet 1 g PO ACHS #120 tabs 12/27/23 Allergies Allergy/AdvReac Type Severity Reaction Status Date / Time codeine Allergy Mild Vomiting Verified 11/25/24 12:33 oxycodone (From Percocet) Allergy Mild Vomiting Verified 11/25/24 12:33 promethazine Allergy Mild Agitated Verified 11/25/24 12:33 Sulfa (Sulfonamide Allergy Mild Vomiting Verified 11/25/24 12:33 Antibiotics) hydromorphone (From Dilaudid) AdvReac Mild Rash Verified 11/25/24 12:33 prochlorperazine (From AdvReac Mild Unknown Verified 11/25/24 12:33 Compazine) Review of Systems ROS Status of ROS 10 or more systems reviewed and unremark able except as noted in history and below [facility] Medical History (Updated 11/25/24 @ 14:15 by Feli Boucher MD) GERD (gastroesophageal reflux disease) ?K21.9 - Gastro-esophageal reflux disease without esophagitis (ICD-10) Hypercholesterolemia ?E78.00 - Pure hypercholesterolemia, unspecified (ICD-10) Acute respiratory failure with hypoxia ?J96.01 - Acute respiratory failure with hypoxia (ICD-10) Respiratory distress ?R06.03 - Acute respiratory distress (ICD-10) Neutropenia ?D70.9 - Neutropenia, unspecified (ICD-10) Hypotension due to hypovolemia ?E86.1 - Hypovolemia (ICD-10) Gastroenteritis due to COVID-19 virus ?U07.1 - COVID-19 (ICD-10) ?A08.39 - Other viral enteritis (ICD-10) Dehydration ?E86.0 - Dehydration (ICD-10) ESE (acute kidney injury) ?N17.9 - Acute kidney failure, unspecified (ICD-10) Gastroenteritis ?K52.9 - Noninfective gastroenteritis and colitis, unspecified (ICD-10) COVID ?U07.1 - COVID-19 (ICD-10) COVID-19 ?U07.1 - COVID-19 (ICD-10) Effusion of knee joint right ?M25.461 - Effusion, right knee (ICD-10) Contusion of hand, left ?S60.222A - Contusion of left hand, initial encounter (ICD-10) Chest pain ?R07.9 - Chest pain, unspecified (ICD-10) Hypothyroid ?E03.9 - Hypothyroidism, unspecified (ICD-10) Esophagitis ?K20.90 - Esophagitis, unspecified without bleeding (ICD-10) Pancolitis ?K51.00 - Ulcerative (chronic) pancolitis without complications (ICD-10) Pulmonary hypertension ?I27.20 - Pulmonary hypertension, unspecified (ICD-10) Cholecystitis ?K81.9 - Cholecystitis, unspecified (ICD-10) Depression ?F32.A - Depression, unspecified (ICD-10) On home O2 ?Z99.81 - Dependence on supplemental oxygen (ICD-10) Hyperthyroidism ?E05.90 - Thyrotoxicosis, unspecified without thyrotoxic crisis or storm (ICD-10) Scoliosis ?M41.9 - Scoliosis, unspecified (ICD-10) Emphysema lung ?J43.9 - Emphysema, unspecified (ICD-10) Nausea & vomiting ?R11.2 - Nausea with vomiting, unspecified (ICD-10) Pacemaker ?Z95.0 - Presence of cardiac pacemaker (ICD-10) COPD (chronic obstructive pulmonary disease) ?J44.9 - Chronic obstructive pulmonary disease, unspecified (ICD-10) Surgical History History of tonsillectomy ?Z90.89 - Acquired absence of other organs (ICD-10) H/O right wrist surgery ?Z98.890 - Other specified postprocedural states (ICD-10) H/O colectomy ?Z90.49 - Acquired absence of other specified parts of digestive tract (ICD- 10) Family History Mother Family history of COPD (chronic obstructive pulmonary disease) Grandmother Family history of cancer Sister Family history of diabetes mellitus Father Family history of myocardial infarction Social History (Updated 12/27/23 @ 23:45 by Meghana Lo) Within the past year, how often did you have a drink containing alcohol: never Within the past year, how often did you have six or more drinks on one occasion: never Score interpretation: A score less than 3 is consistent with normal alcohol consumption. 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 Known occupational exposures/hazards: No Highest level of school completed/degree received: 10th grade Do you want help with school or training: No Are you now , , , , never or living with a partner: In a typical week, how many times do you talk on the telephone with family, friends, or neighbors: 3 or more times per week How often do you get together with friends or relatives: 3 or more times per week How often do you attend gnosticism or pentecostal services: 4 or more times per year Do you belong to any clubs or organizations such as gnosticism groups unions, fraternal or athletic groups, or school groups: yes Total score: 3 Score interpretation: A score of greater than or equal to 2 indicates the lowest level of social isolation. Little interest or pleasure in doing things: not at all Feeling down, depressed, or hopeless: not at all Feel stressed/tense/nervous/anxious/difficulty sleeping: to some extent Life stressors: unknown source of stress Due to disability, difficulty making decisions: No Do you think of yourself as: bisexual Gender Identity: female Exam Narrative Exam Narrative: Nurses notes and vital signs reviewed and patient is not hypoxic. General: Well-appearing and in no apparent distress. Skin: Warm, dry, no pallor noted. No rash. Head: Normocephalic, atraumatic. Neck: Supple, non-tender. Eye: Pupils are equal, round and EOMI. No scleral icterus. Ears, Nose, Mouth, and Throat: TM are clear, no nasal mucosal hypertrophy. Oral mucosa is moist, no posterior oropharynx erythema, uvula is mid-line Cardiovascular: Regular Rate and Rhythm without murmur, gallop or rub. Respiratory: No accessory muscle use or respiratory distress. Lungs are clear to auscultation, no wheezing, rales or rhonchi Chest Wall: no tenderness Back: No midline thoracic or lumbar vertebral tenderness. No CVA tenderness Musculoskeletal: normal ROM, no calf or popliteal tenderness, no lower extremity edema/swelling GI: Abdomen is soft, non-distended. Normal bowel sounds. No masses appreciated. No tenderness to palpation. No rebound, guarding, or rigidity noted. Neurological: A&O x4. No cranial nerve dysfunction observed. No truncal ataxia. Moves all extremities. Sensation intact. Psychiatric: Cooperative and interactive. Normal mood and affect. Constitutional Vital Signs, click to edit/add: Last Vital Signs Temp 102.5 F H 11/25/24 12:19 Pulse 87 11/25/24 12:19 Resp 18 11/25/24 12:19 BP 87/55 L 11/25/24 14:16 Pulse Ox 92 L 11/25/24 14:20 O2 Del Method Room Air, Nasal Cannula 11/25/24 12:50 O2 Flow Rate 2 11/25/24 12:50 Course Vital Signs Vital signs: Vital Signs Temperature 102.5 F H 11/25/24 12:19 Pulse Rate 87 11/25/24 12:19 Respiratory Rate 18 11/25/24 12:19 Blood Pressure 97/65 11/25/24 12:19 Pulse Oximetry 90 L 11/25/24 12:19 Oxygen Delivery Method Room Air 11/25/24 12:19 Temperature 102.5 F H 11/25/24 12:19 Pulse Rate 87 11/25/24 12:19 Respiratory Rate 18 11/25/24 12:19 Blood Pressure 87/55 L 11/25/24 14:16 Pulse Oximetry 92 L 11/25/24 14:20 Oxygen Delivery Method Room Air, Nasal Cannula 11/25/24 12:50 Oxygen Delivery Flow Rate 2 11/25/24 12:50 MDM - Nausea/Vomiting/Diarrhea MDM Narrative Medical decision making narrative: It was noted that the patient is hypoxemic at 90% on room air and that without exertion Chest x-ray showed no acute pathology CBC shows leukopenia with a chemistry showing acute kidney injury the patient was started on IV fluid 1 L Right now she is on 2 L nasal cannula saturating 91% Right now the patient will be admitted for further hydration and evaluation for her flu a in addition to mostly she will need her oxygen tank at home establish ed Case was discussed with and he agreed with above-mentioned plan Lab Data Labs: Lab Results 11/25/24 11/25/24 11/25/24 Range/Units 12:26 12:50 12:55 WBC 3.7 L (4.0-11.0) 10^3/uL RBC 4.87 (4.20-5.40) 10^6/uL Hgb 13.8 (12.0-16.0) g/dL Hct 42.4 (36.0-48.0) % MCV 87.1 (81.0-99.0) fL MCH 28.3 (26.7-34.0) pg MCHC 32.5 (29.9-35.2) g/dL RDW 13.5 (11.0-15.0) % Plt Count 168 (150-450) 10^3/uL MPV 10.7 (9.5-13.5) fL Neut % (Auto) 77.1 H (43.0-75.0) % Lymph % (Auto) 14.0 L (20.5-60.0) % [place] % (Auto) 8.6 (1.7-12.0) % Eos % (Auto) 0.0 L (0.9-7.0) % Baso % (Auto) 0.0 L (0.2-2.0) % Neut # (Auto) 2.9 (1.4-6.5) 10^3/uL Lymph # (Auto) 0.5 L (1.2-3.8) 10^3/uL [place] # (Auto) 0.3 (0.3-0.8) 10^3/uL Eos # (Auto) 0.0 (0.0-0.7) 10^3/uL Baso # (Auto) 0.0 (0.0-0.1) 10^3/uL Abs Immat Gran (auto) 0.01 (0.00-0.03) 10^3/uL Imm/Tot Granulo (auto) 0.3 (0.0-0.5) % PT 11.8 H (9.0-11.6) sec INR 1.13 Sodium 136 (136-145) mmol/L Potassium 3.8 (3.5-5.1) mmol/L Chloride 99 (98-107) mmol/L Carbon Dioxide 26.2 (21.0-32.0) mmol/L Anion Gap 14.6 BUN 19.0 H (7.0-18.0) mg/dL Creatinine 1.40 H (0.55-1.02) mg/dL Est GFR ( Amer) 46 L (>=60 mL/min/1.73m^2) Est GFR (Non-Af Amer) 38 L (>=60 mL/min/1.73m^2) BUN/Creatinine Ratio 13.6 Glucose 108 H (74-106) mg/dL Calcium 8.0 L (8.5-10.1) mg/dL Total Bilirubin 0.4 (0.2-1.0) mg/dL AST 109 H (15-37) U/L ALT 85 H (14-59) U/L Alkaline Phosphatase 106 (46-116) U/L Total Protein 7.0 (6.4-8.2) g/dL Albumin 3.5 (3.4-5.0) g/dL Globulin 3.5 g/dL Albumin/Globulin Ratio 1.0 Influenza Type A Ag Positive A Influenza Type B Ag Negative SARS-CoV-2 Ag (CV2AG) Negative (NEGATIVE) Discharge Plan Discharge Chief Complaint: Fever Clinical Impression: Flu, ESE (acute kidney injury), Hypoxemia Patient Disposition: Admitted As Inpatient Time of Disposition Decision: 14:15
--- NOTE | 2024-11-25 14:28 | P.HP_ITS ---
HPI H&P: HPI History of Present Illness Chief complaint: FLU A ACUTE KIDNEY INJURY HYPOXEMIA Narrative: Patient scented emergency room with increasing cough, nausea, vomiting, found to have acute influenza A with significant dehydration with elevated creatinine. Opioid HPI Opioid Management Most Recent Pain and Opioid Data: Last Pain Scale 2 07/22/24 07:33 07/22/24 Last Pain Intensity 2 07/22/24 07:33 07/22/24 Last Pain Assessment 11/25/24 18:12 Last MAR Pain Assessment 11/25/24 13:19 Last ORT Total Score 0 11/25/24 15:32 11/25/24 Last ORT Risk Category Low Risk 11/25/24 15:32 11/25/24 Review of Systems ROS Status of ROS 10 or more systems reviewed and unremark able except as noted in history and below [facility] Medical History (Updated 11/25/24 @ 14:15 by Feli Boucher MD) GERD (gastroesophageal reflux disease) ?K21.9 - Gastro-esophageal reflux disease without esophagitis (ICD-10) Hypercholesterolemia ?E78.00 - Pure hypercholesterolemia, unspecified (ICD-10) Acute respiratory failure with hypoxia ?J96.01 - Acute respiratory failure with hypoxia (ICD-10) Respiratory distress ?R06.03 - Acute respiratory distress (ICD-10) Neutropenia ?D70.9 - Neutropenia, unspecified (ICD-10) Hypotension due to hypovolemia ?E86.1 - Hypovolemia (ICD-10) Gastroenteritis due to COVID-19 virus ?U07.1 - COVID-19 (ICD-10) ?A08.39 - Other viral enteritis (ICD-10) Dehydration ?E86.0 - Dehydration (ICD-10) ESE (acute kidney injury) ?N17.9 - Acute kidney failure, unspecified (ICD-10) Gastroenteritis ?K52.9 - Noninfective gastroenteritis and colitis, unspecified (ICD-10) COVID ?U07.1 - COVID-19 (ICD-10) COVID-19 ?U07.1 - COVID-19 (ICD-10) Effusion of knee joint right ?M25.461 - Effusion, right knee (ICD-10) Contusion of hand, left ?S60.222A - Contusion of left hand, initial encounter (ICD-10) Chest pain ?R07.9 - Chest pain, unspecified (ICD-10) Hypothyroid ?E03.9 - Hypothyroidism, unspecified (ICD-10) Esophagitis ?K20.90 - Esophagitis, unspecified without bleeding (ICD-10) Pancolitis ?K51.00 - Ulcerative (chronic) pancolitis without complications (ICD-10) Pulmonary hypertension ?I27.20 - Pulmonary hypertension, unspecified (ICD-10) Cholecystitis ?K81.9 - Cholecystitis, unspecified (ICD-10) Depression ?F32.A - Depression, unspecified (ICD-10) On home O2 ?Z99.81 - Dependence on supplemental oxygen (ICD-10) Hyperthyroidism ?E05.90 - Thyrotoxicosis, unspecified without thyrotoxic crisis or storm (ICD-10) Scoliosis ?M41.9 - Scoliosis, unspecified (ICD-10) Emphysema lung ?J43.9 - Emphysema, unspecified (ICD-10) Nausea & vomiting ?R11.2 - Nausea with vomiting, unspecified (ICD-10) Pacemaker ?Z95.0 - Presence of cardiac pacemaker (ICD-10) COPD (chronic obstructive pulmonary disease) ?J44.9 - Chronic obstructive pulmonary disease, unspecified (ICD-10) Surgical History History of tonsillectomy ?Z90.89 - Acquired absence of other organs (ICD-10) H/O right wrist surgery ?Z98.890 - Other specified postprocedural states (ICD-10) H/O colectomy ?Z90.49 - Acquired absence of other specified parts of digestive tract (ICD- 10) Family History Mother Family history of COPD (chronic obstructive pulmonary disease) Grandmother Family history of cancer Sister Family history of diabetes mellitus Father Family history of myocardial infarction Social History (Updated 12/27/23 @ 23:45 by Meghana Lo) Within the past year, how often did you have a drink containing alcohol: never Within the past year, how often did you have six or more drinks on one occasion: never Score interpretation: A score less than 3 is consistent with normal alcohol consumption. 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 Known occupational exposures/hazards: No Highest level of school completed/degree received: 10th grade Do you want help with school or training: No Are you now , , , , never or living with a partner: In a typical week, how many times do you talk on the telephone with family, friends, or neighbors: 3 or more times per week How often do you get together with friends or relatives: 3 or more times per week How often do you attend lutheran or mormon services: 4 or more times per year Do you belong to any clubs or organizations such as lutheran groups unions, [employer] or athletic groups, or school groups: yes Total score: 3 Score interpretation: A score of greater than or equal to 2 indicates the lowest level of social isolation. Little interest or pleasure in doing things: not at all Feeling down, depressed, or hopeless: not at all Feel stressed/tense/nervous/anxious/difficulty sleeping: to some extent Life stressors: unknown source of stress Due to disability, difficulty making decisions: No Do you think of yourself as: bisexual Gender Identity: female Meds Home Medications and Allergies Home Medications ?Medication ?Instructions ?Recorded ?Confirmed ?Type bupropion HCl 300 mg 24 hr tablet, 300 mg PO DAILY 09/25/23 11/25/24 History extended release cholecalciferol (vitamin D3) 50 50 mcg PO DAILY 09/25/23 11/25/24 History mcg (2,000 unit) capsule citalopram 20 mg tablet 20 mg PO DAILY 09/25/23 11/25/24 History lamotrigine 25 mg tablet 50 mg PO BEDTIME 09/25/23 11/25/24 History lansoprazole 30 mg capsule,delayed 30 mg PO DAILY 09/25/23 11/25/24 History release levothyroxine 125 mcg tablet 125 mcg PO DAILY 09/25/23 11/25/24 History simvastatin 20 mg tablet 20 mg PO QPM 09/25/23 11/25/24 History docusate sodium 100 mg capsule 100 mg PO DAILY PRN constipation 12/22/23 11/25/24 History ([facility]) loratadine 10 mg tablet (Allergy 10 mg PO DAILY 12/22/23 11/25/24 History Relief (loratadine)) meclizine 25 mg tablet 25 mg PO QID PRN dizziness 07/19/24 11/25/24 History alendronate 70 mg tablet 70 mg PO QWEEK 11/25/24 11/25/24 History Allergies Allergy/AdvReac Type Severity Reaction Status Date / Time codeine Allergy Mild Vomiting Verified 11/25/24 12:33 oxycodone (From Percocet) Allergy Mild Vomiting Verified 11/25/24 12:33 promethazine Allergy Mild Agitated Verified 11/25/24 12:33 Sulfa (Sulfonamide Allergy Mild Vomiting Verified 11/25/24 12:33 Antibiotics) hydromorphone (From Dilaudid) AdvReac Mild Rash Verified 11/25/24 12:33 prochlorperazine (From AdvReac Mild Unknown Verified 11/25/24 12:33 Compazine) Exam Constitutional Vital Signs, click to edit/add: Last Vital Signs Temp 102.5 F H 11/25/24 12:19 Pulse 87 11/25/24 12:19 Resp 18 11/25/24 12:19 BP 84/50 L 11/25/24 14:00 Pulse Ox 93 L 11/25/24 14:00 O2 Del Method Room Air, Nasal Cannula 11/25/24 12:50 O2 Flow Rate 2 11/25/24 12:50 Documenting provider has reviewed patient's vital signs: yes Common normals: no apparent distress (Mild conversational dyspnea) Chest Common normals: inspection of chest normal Respiratory Common normals: abnormal respiratory effort (Mild conversational dyspnea) Auscultation: rhonchi and wheezes Cardio Common normals: regular rate and regular rhythm GI Common normals: Normal to inspection, nondistended, normoactive bowel sounds present and soft to palpation; tender (Mild diffuse tenderness) Results Labs Labs: Short CBC 11/25/24 Range/Units 12:50 WBC 3.7 L (4.0-11.0) 10^3/uL Hgb 13.8 (12.0-16.0) g/dL Hct 42.4 (36.0-48.0) % Plt Count 168 (150-450) 10^3/uL BMP 11/25/24 12:55 Sodium 136 Potassium 3.8 Chloride 99 Carbon Dioxide 26.2 BUN 19.0 H Creatinine 1.40 H Glucose 108 H Calcium 8.0 L Liver Function 11/25/24 Range/Units 12:55 Total Bilirubin 0.4 (0.2-1.0) mg/dL AST 109 H (15-37) U/L ALT 85 H (14-59) U/L Alkaline Phosphatase 106 (46-116) U/L Albumin 3.5 (3.4-5.0) g/dL Assessment and Plan Assessment and Plan (1) Hypoxemia: (2) ESE (acute kidney injury): (3) Flu: Plan Combined use: Fever, hypotension, influenza A positive, acute hypoxia with O2 sat of 88%, neutropenia, acute kidney injury with a creatinine at baseline of 0.87 during her wellness testing, 1.4 on admission, that is 160.9% above baseline with decreased urine output in the last 6 hours would put her at stage I acute kidney injury, elevated liver function test likely related to the flu Influenza A positive-with acute hypoxia, O2 supplementation, frequent aerosols, steroids, Tamiflu Acute kidney injury stage I as outlined above-IV fluid bolus given will continue maintenance fluids overnight and reevaluate in a.m. Elevated liver function test likely related to the above with passive congestion-repeat in a.m., patient does not have right upper quadrant tenderness Depression-continue with home medications GERD-IV Protonix Admission status: Patient admitted with influenza A positive, dehydration, medically necessary treatment may only span 1 midnight, observation status. If unable to improve overnight, medically necessary treatment will thus span 2 midnights and she will be changed to inpatient status
[2024-11-25] MEDS: 0.9 % SODIUM CHLORIDE 1,000 ML 1000 ML IV (14:30)
[2024-11-25 15:39] LABS: Magnesium 2.1 mg/dL (1.8-2.4)
[2024-11-25 15:48] LABS: Lactate/Lactic Acid 1.3 mmol/L (0.4-2.0)
[2024-11-25] MEDS: 0.9 % SODIUM CHLORIDE 1,000 ML 500 ML IV (16:21)
[2024-11-25] MEDS: IPRATROPIUM/ALBUTEROL SULFATE 3 ML AMPUL.NEB IH ×2 (16:24→22:10)
[2024-11-25] MEDS: LACTATED RINGER'S SOLUTION 1,000 ML 100 ML IV (17:29)
[2024-11-25] MEDS: METHYLPREDNISOLONE SOD SUCC PF 40 MG/ML VIAL 60 MG IVP (21:20)
[2024-11-25] MEDS: MECLIZINE HCL 12.5 MG TABLET 25 MG PO (21:21)
[2024-11-25] MEDS: LAMOTRIGINE 25 MG TABLET 50 MG PO (21:21)
[2024-11-25] MEDS: OSELTAMIVIR PHOSPHATE 75 MG CAPSULE PO (21:21)
[2024-11-25] MEDS: PANTOPRAZOLE SODIUM 40 MG VIAL IV (21:22)
[2024-11-25] MEDS: BENZONATATE 100 MG CAPSULE 200 MG PO (21:22)
[2024-11-26] VITALS (10 sets, daily range): BP systolic 93–110; BP diastolic 55–65; PULSE 72–77; TEMP 36.6–36.9; O2SAT 90–96
[2024-11-26] MEDS: METHYLPREDNISOLONE SOD SUCC PF 40 MG/ML VIAL 60 MG IVP ×4 (00:11→18:08)
[2024-11-26] MEDS: ONDANSETRON PF 4 MG/2 ML VIAL IV ×6 (02:48→23:11)
[2024-11-26] MEDS: LACTATED RINGER'S SOLUTION 1,000 ML 100 ML IV ×2 (03:36→15:13)
[2024-11-26] MEDS: IPRATROPIUM/ALBUTEROL SULFATE 3 ML AMPUL.NEB IH ×4 (04:24→22:44)
[2024-11-26] MEDS: BENZONATATE 100 MG CAPSULE 200 MG PO ×3 (05:34→21:46)
[2024-11-26 05:35] LABS: Hematocrit 40.6 % (36.0-48.0); Hemoglobin 12.8 g/dL (12.0-16.0); Mean Corpuscular HGB Conc 31.5 g/dL (29.9-35.2); Mean Corpuscular Hemoglobin 28.3 pg (26.7-34.0); Mean Corpuscular Volume 89.8 fL (81.0-99.0); Mean Platelet Volume 9.5 fL (9.5-13.5); Platelet Count 144 10^3/uL (150-450); Red Blood Count 4.52 10^6/uL (4.20-5.40); Red Cell Distribution Width 13.4 % (11.0-15.0)
[2024-11-26] MEDS: MECLIZINE HCL 12.5 MG TABLET 25 MG PO ×3 (05:35→21:46)
[2024-11-26] MEDS: LEVOTHYROXINE SODIUM 125 MCG TABLET PO (05:39)
[2024-11-26 05:53] LABS: Alanine Aminotransferase 59 U/L (14-59); Albumin Globulin Ratio 0.9; Albumin Level 2.8 g/dL (3.4-5.0); Alkaline Phosphatase 90 U/L (46-116); Anion Gap 12.7; Aspartate Amino Transferase 66 U/L (15-37); Bilirubin Total 0.2 mg/dL (0.2-1.0); Calcium 7.6 mg/dL (8.5-10.1); Carbon Dioxide 24.4 mmol/L (21.0-32.0); Chloride 107 mmol/L (98-107); Estimated GFR (African America >60 (>=60 mL/min/1.73m^2); Estimated GFR (Non-African Ame 57 (>=60 mL/min/1.73m^2); Globulin 3.1 g/dL; Glucose 131 mg/dL (74-106); Potassium 4.1 mmol/L (3.5-5.1); Sodium 140 mmol/L (136-145); Total Protein 5.9 g/dL (6.4-8.2)
[2024-11-26] MEDS: ACETAMINOPHEN 500 MG TABLET 1000 MG PO (05:54)
[2024-11-26 06:04] LABS: Lymphocytes Absolute Manual 0.16 10^3/uL (1.20-3.80); Monocytes Absolute Manual 0.14 10^3/uL (0.30-0.80)
--- NOTE | 2024-11-26 07:55 | P.PN_ITS ---
Progress Note: Subjective Subjective Interval history: Patient states she overall feels worse, Patient did need to increase her supplemental oxygen from 1 L to 2 L last night Exam Constitutional Vital Signs, click to edit/add: Last Vital Signs Temp 98 F 11/26/24 04:00 Pulse 72 11/26/24 04:24 Resp 18 11/26/24 04:24 BP 93/55 11/26/24 04:00 Pulse Ox 95 11/26/24 04:24 O2 Del Method Nasal Cannula 11/26/24 04:24 O2 Flow Rate 2 11/26/24 04:24 Documenting provider has reviewed patient's vital signs: yes Common normals: apparent distress (Mild respiratory distress) Chest Common normals: inspection of chest normal Respiratory Common normals: abnormal respiratory effort (Mild conversational dyspnea) Auscultation: rhonchi (Persisting) and wheezes (Persisting but improved air exch aundrea) Cardio Common normals: regular rate and regular rhythm GI Common normals: Normal to inspection, nondistended, normoactive bowel sounds present and soft to palpation; tender (Mild diffuse tenderness) Progress Note: Objective Labs Labs: Short CBC 11/25/24 11/26/24 Range/Units 12:50 05:08 WBC 3.7 L 2.0 L (4.0-11.0) 10^3/uL Hgb 13.8 12.8 (12.0-16.0) g/dL Hct 42.4 40.6 (36.0-48.0) % Plt Count 168 144 L (150-450) 10^3/uL BMP 11/25/24 11/26/24 12:55 05:08 Sodium 136 140 Potassium 3.8 4.1 Chloride 99 107 Carbon Dioxide 26.2 24.4 BUN 19.0 H 17.0 Creatinine 1.40 H 1.00 Glucose 108 H 131 H Calcium 8.0 L 7.6 L Liver Function 11/25/24 11/26/24 Range/Units 12:55 05:08 Total Bilirubin 0.4 0.2 (0.2-1.0) mg/dL AST 109 H 66 H (15-37) U/L ALT 85 H 59 (14-59) U/L Alkaline Phosphatase 106 90 (46-116) U/L Albumin 3.5 2.8 L (3.4-5.0) g/dL Progress Note: A&P Assessment and Plan (1) Hypoxemia: (2) ESE (acute kidney injury): (3) Flu: (4) Gastroenteritis due to COVID-19 virus: (5) Hypotension due to hypovolemia: (6) Dehydration: (7) COPD (chronic obstructive pulmonary disease): Qualifiers: COPD type: unspecified COPD Qualified Code(s): J44.9 - Chronic obstructive pulmonary disease, unspecified (8) Hypothyroid: Qualifiers: Hypothyroidism type: acquired Qualified Code(s): E03.9 - Hypothyroidism, unspecified (9) ESE (acute kidney injury): (10) COVID-19: (11) Effusion of knee joint right: (12) Contusion of hand, left: (13) Chest pain: (14) Pulmonary hypertension: (15) Neutropenia: (16) Respiratory distress: (17) Acute respiratory failure with hypoxia: (18) Depression: (19) Hypercholesterolemia: (20) GERD (gastroesophageal reflux disease): Plan Admission findings: Fever, hypotension, influenza A positive, acute hypoxia with O2 sat of 88%, neutropenia, acute kidney injury with a creatinine at baseline of 0.87 during her wellness testing, 1.4 on admission, that is 160.9% above baseline with decreased urine output in the last 6 hours would put her at stage I acute kidney injury, elevated liver function test likely related to the flu Influenza A positive-hypoxia worsened overnight and had to increase her supplemental oxygen that was tapered down to 1 L back up to 2 L, neutropenia worsened today also, left shift persisting which would be consistent with a bacterial process, maintain current antibiotics Acute kidney injury stage I as outlined above-improved almost to baseline, still with not great urine output will maintain maintenance fluids Elevated liver function test likely related to the above with passive congestion-improved Depression-continue with home medications GERD-IV Protonix Admission status: Patient placed in the observational time. With influenza A positive and dehydration with acute hypoxia, her O2 sats and decreased need to have her supplemental oxygen increased from 1 L to 2 L, she does not wear supplemental oxygen at home, this was weaned off and she has been without supplemental oxygen for over a month at home. With failing the initial observational time period and hypoxia worsened today and neutropenia worsened today will change patient to inpatient status as medically necessary treatment will span 2 midnights ?
[2024-11-26] MEDS: CITALOPRAM HYDROBROMIDE 20 MG TABLET PO (08:49)
[2024-11-26] MEDS: CHOLECALCIFEROL (VITAMIN D3) 25 MCG/1,000 UNITS TABLET 50 MCG PO (08:49)
[2024-11-26] MEDS: BUPROPION HCL 150 MG XL TABLET 24H 300 MG PO (08:49)
[2024-11-26] MEDS: OSELTAMIVIR PHOSPHATE 30 MG CAPSULE PO ×2 (08:49→21:45)
[2024-11-26] MEDS: ATORVASTATIN CALCIUM 10 MG TABLET PO (08:49)
[2024-11-26 10:30] LABS: Internal Control Within Normal Limits; Occult Blood Negative
--- NOTE | 2024-11-26 10:59 | SWNOTE1 ---
Patient lives at home with her 2 sons. She has a walker at home, but has not been using it. She has had home oxygen in past, but they took it as she had not been using it or needing it. SW did offer home health services to pt, but she stated she does not need them. SW offered at least a nurse to monitor, but pt does not feel it is necessary at this time. She will reach out to her PCP if she decides she wants it. At this time pt denies any needs at discharge. SW to follow as needed.
--- NOTE | 2024-11-26 11:00 | SWNOTE1 ---
Pt is on 2 liters of oxygen here at hospital, no oxygen at home at this time.
[2024-11-26 12:38] LABS: C. Difficile PCR NEGATIVE
[2024-11-26] MEDS: LAMOTRIGINE 25 MG TABLET 50 MG PO (21:45)
[2024-11-26] MEDS: PANTOPRAZOLE SODIUM 40 MG VIAL IV (21:45)
[2024-11-26] MEDS: CETIRIZINE HCL 10 MG TABLET PO (21:45)
[2024-11-26 22:04] LABS: Bilirubin Urine NEGATIVE (NEGATIVE); Blood Urine TRACE-I (NEGATIVE); Clarity Urine CLEAR (CLEAR); Color Urine LT. YELLOW (YELLOW); Glucose Urine UA NEGATIVE (NEGATIVE); Ketones Urine NEGATIVE (NEGATIVE); Leukocyte Esterase Urine NEGATIVE (NEGATIVE); Nitrite Urine NEGATIVE (NEGATIVE); Protein Urine NEGATIVE (NEG/TRACE); Specific Gravity Urine 1.015 (1.005-1.025); Urobilinogen Urine 0.2 EU/dL (0.2-1.0)
[2024-11-26 22:15] LABS: Bacteria Urine NONE SEEN #/HPF (NONE SEEN); Cast Seen? NONE SEEN #/LPF (NONE SEEN); Crystals Seen? None Seen #/HPF (None Seen); Mucus Urine NONE SEEN (NONE SEEN); RBC Urine 0-2 #/HPF (0-2); Squamous Epithelial Cell Urine RARE #/LPF (NONE/RARE); Urine Culture Indicated ALREADY ORDERED; WBC Urine NONE SEEN #/HPF (NONE SEEN)
[2024-11-27] MEDS: METHYLPREDNISOLONE SOD SUCC PF 40 MG/ML VIAL 60 MG IVP ×3 (02:05→13:11)
[2024-11-27] MEDS: ONDANSETRON PF 4 MG/2 ML VIAL IV ×3 (02:05→11:04)
[2024-11-27] MEDS: LACTATED RINGER'S SOLUTION 1,000 ML 100 ML IV (02:15)
[2024-11-27 03:20] VITALS: BP 99/58; PULSE 76; TEMP 36.3; O2SAT 96
[2024-11-27 05:18] VITALS: PULSE 79; O2SAT 99
[2024-11-27] MEDS: IPRATROPIUM/ALBUTEROL SULFATE 3 ML AMPUL.NEB IH ×2 (05:18→10:05)
[2024-11-27 05:51] LABS: Hematocrit 40.9 % (36.0-48.0); Immature Granulocytes Abs Auto 0.01 10^3/uL (0.00-0.03); Immature Granulocytes Pct Auto 0.3 % (0.0-0.5); Lymphocytes Absolute Auto 0.6 10^3/uL (1.2-3.8); Lymphocytes Percent Auto 15.5 % (20.5-60.0); Mean Corpuscular HGB Conc 31.8 g/dL (29.9-35.2); Mean Corpuscular Hemoglobin 28.5 pg (26.7-34.0); Mean Corpuscular Volume 89.7 fL (81.0-99.0); Mean Platelet Volume 9.6 fL (9.5-13.5); Monocytes Absolute Auto 0.1 10^3/uL (0.3-0.8); Neutrophils Absolute Auto 2.8 10^3/uL (1.4-6.5); Neutrophils Percent Auto 80.2 % (43.0-75.0); Platelet Count 147 10^3/uL (150-450); Red Blood Count 4.56 10^6/uL (4.20-5.40); Red Cell Distribution Width 13.2 % (11.0-15.0); White Blood Count 3.5 10^3/uL (4.0-11.0)
[2024-11-27] MEDS: LEVOTHYROXINE SODIUM 125 MCG TABLET PO (06:11)
[2024-11-27] MEDS: BENZONATATE 100 MG CAPSULE 200 MG PO ×2 (06:11→13:12)
[2024-11-27] MEDS: MECLIZINE HCL 12.5 MG TABLET 25 MG PO ×2 (06:11→13:12)
[2024-11-27 06:12] LABS: Alanine Aminotransferase 43 U/L (14-59); Alkaline Phosphatase 77 U/L (46-116); Anion Gap 11.7; Aspartate Amino Transferase 46 U/L (15-37); BUN Creatinine Ratio 15.7; Bilirubin Total 0.2 mg/dL (0.2-1.0); Calcium 8.5 mg/dL (8.5-10.1); Chloride 107 mmol/L (98-107); Estimated GFR (African America >60 (>=60 mL/min/1.73m^2); Estimated GFR (Non-African Ame >60 (>=60 mL/min/1.73m^2); Globulin 2.9 g/dL; Glucose 144 mg/dL (74-106); Potassium 3.7 mmol/L (3.5-5.1); Sodium 143 mmol/L (136-145); Total Protein 5.9 g/dL (6.4-8.2)
--- NOTE | 2024-11-27 07:59 | P.DS_ITS ---
DS: Providers Provider Date of admission: 11/26/24 07:52 Primary care physician: Paulo Turner MD Consults: 11/25/24 15:18 Occupational Therapy Eval and Treat Routine Reason for consultation: Only if needed for Rehab Has provider been notified: No Physical Therapy Eval and Treat Routine Reason for consultation: Eval and Treat Has provider been notified: No DS: Diagnosis Discharge Diagnosis (1) Hypoxemia: (2) ESE (acute kidney injury): (3) Flu: (4) Gastroenteritis due to COVID-19 virus: (5) Hypotension due to hypovolemia: (6) Dehydration: (7) COPD (chronic obstructive pulmonary disease): Qualifiers: COPD type: unspecified COPD Qualified Code(s): J44.9 - Chronic obstructive pulmonary disease, unspecified (8) Hypothyroid: Qualifiers: Hypothyroidism type: acquired Qualified Code(s): E03.9 - Hypothyroidism, unspecified (9) COVID-19: (10) Effusion of knee joint right: (11) Contusion of hand, left: (12) Chest pain: (13) Pulmonary hypertension: (14) Neutropenia: (15) Respiratory distress: (16) Acute respiratory failure with hypoxia: (17) Depression: (18) Hypercholesterolemia: (19) GERD (gastroesophageal reflux disease): Plan Admission findings: Fever, hypotension, influenza A positive, acute hypoxia with O2 sat of 88%, neutropenia, acute kidney injury with a creatinine at baseline of 0.87 during her wellness testing, 1.4 on admission, that is 160.9% above baseline with decreased urine output in the last 6 hours would put her at stage I acute kidney injury, elevated liver function test likely related to the flu Influenza A positive-hypoxia worsened overnight and had to increase her suppleme ntal oxygen that was tapered down to 1 L back up to 2 L, neutropenia worsened today also, left shift persisting which would be consistent with a bacterial process, maintain current antibiotics Acute kidney injury stage I as outlined above-improved almost to baseline, still with not great urine output will maintain maintenance fluids Elevated liver function test likely related to the above with passive congestion-improved Depression-continue with home medications GERD-IV Protonix Admission status: Patient placed in the observational time. With influenza A positive and dehydration with acute hypoxia, her O2 sats and decreased need to have her supplemental oxygen increased from 1 L to 2 L, she does not wear supplemental oxygen at home, this was weaned off and she has been without supplemental oxygen for over a month at home. With failing the initial observational time period and hypoxia worsened today and neutropenia worsened today will change patient to inpatient status as medically necessary treatment will span 2 midnights DS: Summary Hospital Course Hospital Course: Patient mated with acute hypoxic event due to right lower lobe pneumonia due to acute influenza A. She was treated with the Tamiflu, steroids, antibiotics. Still had some hypoxia yesterday, changed to inpatient status due to feeling observational time period. Overnight time her O2 saturations do look improved but she is still on supplemental oxygen, does not use supplemental oxygen at home has been out of her house for over a month, try to wean supplemental oxygen again today if are able to wean her off of supplemental oxygen and she is ambulating safely she can be discharged home in improving condition. Medications see list. Follow-up with me in the office within the next few days. Time Spent with Patient Time attestation: Total time spent providing and/or coordinating discharge services: Exam Constitutional Vital Signs, click to edit/add: Last Vital Signs Temp 97.4 F L 11/27/24 03:20 Pulse 79 11/27/24 05:18 Resp 16 11/27/24 05:18 BP 99/58 11/27/24 03:20 Pulse Ox 99 11/27/24 05:18 O2 Del Method Nasal Cannula 11/27/24 05:18 O2 Flow Rate 2 11/27/24 05:18 Documenting provider has reviewed patient's vital signs: yes Common normals: no apparent distress (Respiratory distress seems to be resolved) Chest Common normals: inspection of chest normal Respiratory Common normals: normal respiratory effort (Respiratory distress seems to be resolved) Auscultation: rhonchi (Persisting but better air exchange) and wheezes (Resolved) Cardio Common normals: regular rate and regular rhythm GI Common normals: Normal to inspection, nondistended, normoactive bowel sounds present and soft to palpation; tender (Mild diffuse tenderness) DS: Data Data Completed and Pending Labs on day of discharge: Labs from last 24 hours 11/27/24 11/26/24 11/26/24 05:31 21:50 09:45 WBC 3.5 L RBC 4.56 Hgb 13.0 Hct 40.9 MCV 89.7 MCH 28.5 MCHC 31.8 RDW 13.2 Plt Count 147 L MPV 9.6 Neut % (Auto) 80.2 H Lymph % (Auto) 15.5 L [place] % (Auto) 4.0 Eos % (Auto) 0.0 L Baso % (Auto) 0.0 L Neut # (Auto) 2.8 Lymph # (Auto) 0.6 L [place] # (Auto) 0.1 L Eos # (Auto) 0.0 Baso # (Auto) 0.0 Abs Immat Gran (auto) 0.01 Imm/Tot Granulo (auto) 0.3 Sodium 143 Potassium 3.7 Chloride 107 Carbon Dioxide 28.0 Anion Gap 11.7 BUN 14.0 Creatinine 0.89 Est GFR ( Amer) >60 Est GFR (Non-Af Amer) >60 BUN/Creatinine Ratio 15.7 Glucose 144 H Calcium 8.5 Total Bilirubin 0.2 AST 46 H ALT 43 Alkaline Phosphatase 77 Total Protein 5.9 L Albumin 3.0 L Globulin 2.9 Albumin/Globulin Ratio 1.0 Urine Color Lt. yellow Urine Clarity Clear Urine pH 5.0 Ur Specific Ten Sleep 1.015 Urine Protein Negative Urine Glucose (UA) Negative Urine Ketones Negative Urine Occult Blood Trace-i Urine Nitrite Negative Urine Bilirubin Negative Urine Urobilinogen 0.2 Ur Leukocyte Esterase Negative Urine RBC 0-2 Urine WBC None seen Ur Squamous Epith Cells Rare Urine Crystals None seen Urine Bacteria None seen Urine Casts None seen Urine Mucus None seen Ur Culture Indicated? Already ordered Stool Occult Blood Negative C. difficile Toxin PCR Negative Preliminary micro results at discharge 11/26/24 19:50 Urine Culture - Preliminary Urine,Clean Catch Pending - Specimen sent to [facility] Discharge Plan Discharge Disposition: Home, Self-Care Discharge Medications: New oseltamivir 75 mg Capsule 75 mg PO BID Qty: 6 0RF ciprofloxacin HCl [Cipro] 500 mg tablet 500 mg PO BID Qty: 14 0RF prednisone 10 mg tablet 40 mg PO DAILY Qty: 32 0RF Rx Instructions: 4/day for 3 days, 3/day for 3 days, 2/day for 3 days, 1/day for 3 days, 1/2 /day for 4 days Continued meclizine 25 mg tablet 25 mg PO QID PRN (Reason: dizziness) alendronate 70 mg tablet 70 mg PO QWEEK bupropion HCl 300 mg tablet extended release 24 hr 300 mg PO DAILY cholecalciferol (vitamin D3) 50 mcg (2,000 unit) capsule 50 mcg PO DAILY citalopram 20 mg tablet 20 mg PO DAILY lamotrigine 25 mg tablet 50 mg PO BEDTIME lansoprazole 30 mg capsule,delayed release(DR/EC) 30 mg PO DAILY levothyroxine 125 mcg tablet 125 mcg PO DAILY simvastatin 20 mg tablet 20 mg PO QPM loratadine [Allergy Relief (loratadine)] 10 mg tablet 10 mg PO DAILY docusate sodium [Col-Rite] 100 mg capsule 100 mg PO DAILY PRN (Reason: constipation) Print Language: Macedonian Forms: Portal Instructions
[2024-11-27 08:00] VITALS: BP 130/78; PULSE 91; TEMP 36.8; O2SAT 93
[2024-11-27] MEDS: BUPROPION HCL 150 MG XL TABLET 24H 300 MG PO (08:50)
[2024-11-27] MEDS: CHOLECALCIFEROL (VITAMIN D3) 25 MCG/1,000 UNITS TABLET 50 MCG PO (08:50)
[2024-11-27] MEDS: CITALOPRAM HYDROBROMIDE 20 MG TABLET PO (08:51)
[2024-11-27] MEDS: OSELTAMIVIR PHOSPHATE 30 MG CAPSULE PO (08:51)
[2024-11-27] MEDS: ATORVASTATIN CALCIUM 10 MG TABLET PO (08:51)
[2024-11-27] MEDS: LEVOFLOXACIN 750 MG TABLET PO (08:53)
[2024-11-27 09:10] VITALS: BP 126/79; PULSE 82; O2SAT 95
[2024-11-27 10:09] VITALS: O2SAT 88
--- NOTE | 2024-11-27 10:38 | PT.DAILY ---
Physical Therapy Daily Note PT Daily Note/Assess Start: 11/26/24 07:21 Freq: Status: Active Protocol: Document 11/27/24 10:35 MAYUR (Rec: 11/27/24 10:38 [email or web address] No Response) Physical Therapy Daily Note/Assessment Time In/Time Out Time In 10:10 Time Out 10:25 Pain In Pain N/A Pain Out Pain N/A Subjective Subjective Pt supine upon arrival. Agreeable to PT. Needs to complete walk test with nursing. No supplemental O2 with this. Spo2 98% prior. Therapeutic Activity Time Therapeutic Activity 10 Minutes (minutes) Therapeutic Activity 1 Units Therapeutic Activity Treatment Bed Mobility Ability Modified Independent Chair Transfer Modified Independent Ability Therapeutic Activity Supine>sit [place] with IV lines. Sit>stand [place]. Pt amb Comments 200' with IV pole, SBA and assist for portable pulse ox reader. Pt demonstrates decreased micheal, requiring increased time with. No SOB. Min lightheadedness reported. Pts SpO2 drops to 88% with activity while pt is wearing mask in [place]. Returned to room. Sit>supine [place]. Remains supine with call light within reach and needs met. O2 is not reapplied pt nursing request. Total Physical Therapy Time Total Therapy 10 Minutes Total Physical 1 Therapy Units Summary Daily Note Summary Improved gait endurance and ability. Steady with amb using IV pole for stability but does have decreased micheal.
[2024-11-27 11:13] VITALS: BP 115/63; PULSE 87; TEMP 36.8; O2SAT 90
--- NOTE | 2024-11-28 14:02 | CM.DCFOLLOWU ---
1st attempt 11/28/24, no answer
--- NOTE | 2024-11-29 10:14 | CM.DCFOLLOWU ---
11/29- 2nd attempt. No answer
--- NOTE | 2024-12-03 11:52 | CM.DCFOLLOWU ---
3rd attempt. No answer.
== END 2024-11-27 16:05 | disposition home or self-care (01) | DRG 139 ==
LOC: ER 14:15 → MS 15:30
PROVIDERS: Admitting Provider Family Medicine; Emergency Provider Emergency Medicine; PCP Family Medicine; Visit Provider Family Medicine
DX: J10.00 Influenza due to other identified influenza virus with unspecified type of pneumonia (principal); E86.0 Dehydration; N17.9 Acute kidney failure, unspecified; R09.02 Hypoxemia; K21.9 Gastro-esophageal reflux disease without esophagitis; E78.00 Pure hypercholesterolemia, unspecified; Z86.16 Personal history of COVID-19; E03.9 Hypothyroidism, unspecified; F32.A Depression, unspecified; Z99.81 Dependence on supplemental oxygen; E05.90 Thyrotoxicosis, unspecified without thyrotoxic crisis or storm; Z95.0 Presence of cardiac pacemaker; Z90.49 Acquired absence of other specified parts of digestive tract; R50.9 Fever, unspecified; I95.9 Hypotension, unspecified; D70.9 Neutropenia, unspecified; R79.89 Other specified abnormal findings of blood chemistry; M25.461 Effusion, right knee; J44.1 Chronic obstructive pulmonary disease with (acute) exacerbation
CPT/HCPCS: 36415; 71045; 80053; 81001; 83605; 83735; 85007; 85025; 85027; 85610; 87045; 87046; 87070; 87086; 87150; 87186; 87427; 87493; 87804; 87811; 94640; 94667; 94668; 94761; 96361; 96374; 96375; 96376; 97161; 97165; 97530; 99285; G0328; G0378; J2405; J2919

== ENCOUNTER 2024-11-29 09:41 | Outpatient (OUT) | payer OTHER, SELFPAY ==
[2024-11-29 10:25] LABS: Hematocrit 41.2 % (36.0-48.0); Hemoglobin 13.3 g/dL (12.0-16.0); Lymphocytes Absolute Auto 0.6 10^3/uL (1.2-3.8); Lymphocytes Percent Auto 28.4 % (20.5-60.0); Mean Corpuscular HGB Conc 32.3 g/dL (29.9-35.2); Mean Corpuscular Hemoglobin 28.9 pg (26.7-34.0); Mean Corpuscular Volume 89.4 fL (81.0-99.0); Mean Platelet Volume 9.4 fL (9.5-13.5); Monocytes Absolute Auto 0.2 10^3/uL (0.3-0.8); Monocytes Percent Auto 7.7 % (1.7-12.0); Neutrophils Absolute Auto 1.4 10^3/uL (1.4-6.5); Neutrophils Percent Auto 63.9 % (43.0-75.0); Platelet Count 132 10^3/uL (150-450); Red Blood Count 4.61 10^6/uL (4.20-5.40); Red Cell Distribution Width 13.2 % (11.0-15.0); White Blood Count 2.2 10^3/uL (4.0-11.0)
[2024-11-29 10:33] LABS: Alanine Aminotransferase 38 U/L (14-59); Albumin Globulin Ratio 1.2; Albumin Level 3.5 g/dL (3.4-5.0); Alkaline Phosphatase 82 U/L (46-116); Anion Gap 10.6; Aspartate Amino Transferase 47 U/L (15-37); BUN Creatinine Ratio 21.3; Bilirubin Total 0.7 mg/dL (0.2-1.0); Calcium 8.4 mg/dL (8.5-10.1); Carbon Dioxide 31.4 mmol/L (21.0-32.0); Chloride 105 mmol/L (98-107); Chol HDL Ratio 4.8; Cholesterol 160 mg/dL (<=200); Estimated GFR (African America >60 (>=60 mL/min/1.73m^2); Estimated GFR (Non-African Ame 52 (>=60 mL/min/1.73m^2); Glucose 67 mg/dL (74-106); HDL Cholesterol 33 mg/dL (40-60); Sodium 144 mmol/L (136-145); Total Protein 6.5 g/dL (6.4-8.2); Triglycerides 309 mg/dL (<=150); VLDL CHOLESTEROL 61.8 mg/dL
== END 2024-11-29 09:42 | disposition home or self-care (01) ==
LOC: LAB 09:42
PROVIDERS: PCP Family Medicine
DX: R06.09 Other forms of dyspnea (principal); E78.2 Mixed hyperlipidemia
CPT/HCPCS: 36415; 80053; 80061; 85025

== ENCOUNTER 2024-12-01 14:37 | Emergency (ER) | payer OTHER, SELFPAY ==
[2024-12-01 14:42] VITALS: BP 108/67; PULSE 70; TEMP 36.6; O2SAT 94
--- OUTSIDE RECORDS SUMMARY | 2024-12-01 14:43 | XMS_ITS | CCD ---
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 bilateral knees lateral and sunrise of the right knee demonstrate neutral alignment bilateral knees. The joint spaces are intact. No fractures are detected. Impression: No acute findings on x-rays of the right knee Ronald Jorgensen D.O. [facility] XR Knee - right 3 ViewsOrder ed By: Gamaliel Leblancston on 06-25-2024 [facility] Work Phone: XR Knee - right 3 Viewson Radiology Study observation (narrative) [facility] CNOVon 06-13-2024 CNOV Office Visit (NUMBHT ) PAULIEEMIGDIO CHARLES ([id number]) 1965 F J[birth year] Date Time Provider Department 06/13/24 12:30 PM ZOILA MONAE During your visit today, we recorded the following information about you: Pulse Blood pressure Weight Height 74/minute 107/77 46.3 kg 1.523 Zoila Hunter MD 06/13/2024 1:41 PM Signed [facility] General Neurology Follow up/ Established patient visit Individuals who were included in, or assisted with the encounter were: Emigdio Monae MD Chief Complaint/Issues: Emigdio Eli is a 58 year old female seen in the [facility] for General Neurology for: Staring spells. Most Recent Neurological Assessment and Plan: Last Filed Values Date of Most Recent Assessment and Plan 03/06/24 Specialty General Neurology Assessment 1) Episodes of altered mental status: no significant risk other than multiple head injuries and brain seems to be smaller with lot more CSF around the brain, no hydrocephalus. 2) MOCA was 16 but given she has a hx of [...] that she can have it done in [place] but she would rather come here. She [...] carbonate (CALT (more content not included)... Normal [facility] Dayana 05-28-2024 [facility] PAULIEEMIGDIO Jessica ([id number]) 1965 F JARROD Date Time Provider Department 05/28/24 ZOILA MONAE During your visit today, we recorded the following information about you: Iveth Salazar 05/28/2024 9:19 AM Signed Call center called the office on patients behalf stating they tried to schedule NEUROPSYCHOLOGICAL TESTING CONSULT But the test is booking out further than the active request. Would need it re ordered for scheduling. Allergies As of Date: 05/28/2024 (No Known Allergies) Date Reviewed: 03/06/2024 Reviewed by: Aida Phillips OCCA - Fully Assessed Prescriptions as of 09/19/2024 - albuterol HFA (PROVENTIL HFA, VENTOLIN HFA) 90 mcg/actuation inhaler Inhale 1 Puff as instructed as needed for wheezing/shortness of breath. - buPROPion XL (WELLBUTRIN XL) 300 mg 24 hr tablet Take 300 mg by mouth once daily. - calcium carbonate (CALTRATE) 600 mg calcium (1,500 mg) tab Take 1 tablet by mouth once daily. - Cholecalciferol, Vitamin D3, 50 mcg (2,000 unit) cap Take 1 capsule by mouth once daily. - citalopram (CELEXA) 20 mg tablet Take 20 mg by mouth once daily. - docusate sodium (COLACE) 100 mg capsule Take 100 mg by mouth once daily. - escitalopram oxalate (LEXAPRO) 10 mg tablet Take 10 mg by mouth once daily. - lamoTRIgine dispersible/chewable (LAMICTAL) 25 mg chewable tablet Take 25 mg by mouth once daily. - lansoprazole (PREVACID) 30 mg capsule Take 30 mg by mouth once daily. - levothyroxine (SYNTHROID) 125 mcg tablet Take 125 mcg by mouth once daily. - loratadine (CLARITIN) 10 mg tablet Take 10 mg by mouth once daily. - simvastatin (ZOCOR) 20 mg tablet Take 20 mg by mouth daily at bedtime. Problem List As Of Date: 05/28/2024 (None) Encounter Status:Closed by IVETH SALAZAR on 09/19/24 Normal [facility] CNOVon 03-06-2024 CNOV Office Visit (SHABNAM ) EMIGDIO ELI ([id number]) 1965 F JARROD Date Time Provider Department 03/06/24 2:00 PM ZOILA MONAE During your visit today, we recorded the following information about you: Temperature Pulse Blood pressure Weight 97.2 degrees 106/minute 101/68 45 kg Height 1.535 m Zoila Monae MD 03/06/2024 3:39 PM Signed [facility] for General Neurology New Patient Evaluation Consulting Provider: Tony Amaya [address] [address] The patient presents with a chief complaint [...] with the encounter were: Emigdio Lopez Paulie Partner: Bozena Monae MD Chief Complaint/Issues: Emigdio Eli is a 58 year old Rh female seen in the [facility] for General Neurology for: Cognitive evaluation and [...] Gait Arises (more content not included)... Normal [facility] BASIC METABOLIC PANELon 05-2 Anion gap [Moles/Vol] 12 mmol/L Normal 7-20 [facility] Comment on above: Performed By: #### L [id number] ####[facility] (BEAKER)[address] [place] [address] Calcium [Mass/Vol] 9.3 mg/dL Normal 8.6-10.3 [facility] Comment on above: Performed By: #### L [id number] ####[facility] (BEAKER)[address] [place] [address] Chloride [Moles/Vol] 103 mmol/L Normal 98-107 [facility] Comment on above: Performed By: #### L [id number] ####[facility] (BEAKER)[address] [place] [address] CO2 [Moles/Vol] 28 mmol/L Normal 21-31 [facility] Comment on above: Performed By: #### L [id number] ####[facility] (BEAKER)[address] [place] [address] Creatinine [Mass/Vol] 0.87 mg/dL Normal 0.60-1.20 [facility] Comment on above: Performed By: #### L [id number] ####[facility] ([facility])[address] [place] [address] GLOMERULAR FILTRATION RATE ML/MIN/1.73 SQ M.PREDICTED 76.7 mL/min/1.73m*2 Normal >60.0 [facility] Comment on above: Result Comment: The [facility]???s estimated glomerular filtration rate (eGFR) will no [...] of individuals. Performed By: #### L [id number] ####[facility] ([facility])[address] [place] [address] Glucose [Mass/Vol] 84 mg/dL Normal 70-100 [facility] Comment on above: Performed By: #### L [id number] ####[facility] ([facility])[address] [place] [address] Potassium [Moles/Vol] 3.6 mmol/L Normal 3.5-5.1 [facility] Comment on above: Performed By: #### L [id number] ####[facility] ([facility])[address] [place] [address] Sodium [Moles/Vol] 139 mmol/L Normal 136-145 [facility] Comment on above: Performed By: #### L [id number] ####[facility] ([facility])[address] [place] [address] Urea nitrogen [Mass/Vol] 9 mg/dL Normal 7-25 [facility] Comment on above: Performed By: #### L [id number] ####[facility] ([facility])[address] [place] [address] UREA NITROGEN/CREATININE (MASS RATIO) IN SER/PLAS 10.3 Normal [facility] Comment on above: Performed By: #### L [id number] ####[facility] ([facility] [place] [address] CBC WITH AUTO DIFFERENTIALon 02-20-2024 Basophils (Bld) [#/Vol] 0.03 10*3/uL Normal 0.00-0.20 [facility] Comment on above: Performed By: #### L [id number] ####[facility] ([facility])[address] [place] [address] Basophils/100 WBC (Bld) 0.6 % Normal 0.0-1.0 [facility] Comment on above: Performed By: #### L [id number] ####[facility] ([facility])[address] [place] [address] Eosinophils (Bld) [#/Vol] 0.20 10*3/uL Normal 0.00-0.50 [facility] Comment on above: Performed By: #### L [id number] ####[facility] ([facility])[address] [place] [address] Eosinophils/100 WBC (Bld) 4.3 % Normal 0.0-6.0 [facility] Comment on above: Performed By: #### L [id number] ####[facility] ([facility] [place] [address] Erythrocyte distribution width (RBC) [Ratio] 12.9 % Normal 11.5-15.0 [facility] Comment on above: Performed By: #### L [id number] ####[facility] ([facility])[address] [place] [address] ERYTHROCYTE MEAN CORPUSCULAR HEMOGLOBIN CONCENTRATION (G/DL) BY AUTOMATED 33.3 g/dL Normal 32.0-35.0 [facility] Comment on above: Performed By: #### L [id number] ####[facility] (BEAKER)[address] [place] [address] Hematocrit (Bld) [Volume fraction] 42.1 % Normal 36.0-48.0 [facility] Comment on above: Performed By: #### L [id number] ####[facility] (BEAKER)[address] [place] [address] Hemoglobin (Bld) [Mass/Vol] 14.0 g/dL Normal 12.0-15.0 [facility] Comment on above: Performed By: #### L [id number] ####[facility] (BEAKER)[address] [place] [address] Immature granulocytes (Bld) [#/Vol] 0.01 10*3/uL Normal 0.00-0.20 [facility] Comment on above: Performed By: #### L [id number] ####[facility] (BEAKER)[address] [place] [address] Immature granulocytes/100 WBC (Bld) 0.2 % Normal 0.0-1.0 [facility] Comment on above: Performed By: #### L [id number] ####[facility] (BEAKER)[address] [place] [address] Lymphocytes (Bld) [#/Vol] 1.36 10*3/uL Normal 1.20-4.00 [facility] Comment on above: Performed By: #### L [id number] ####[facility] (BEAKER)[address] [place] [address] Lymphocytes/100 WBC (Bld) 29.0 % Normal 20.0-45.0 [facility] Comment on above: Performed By: #### L [id number] ####[facility] (BEAKER)[address] [place] [address] MCH (RBC) [Entitic mass] 28.7 pg Normal 27.0-33.0 [facility] Comment on above: Performed By: #### L [id number] ####[facility] (BEAKER)[address] [place] [address] MCV (RBC) [Entitic vol] 86.3 fL Normal 82.0-98.0 [facility] Comment on above: Performed By: #### L [id number] ####[facility] (BEAKER)[address] [place] [address] Monocytes (Bld) [#/Vol] 0.29 10*3/uL Normal 0.10-1.00 [facility] Comment on above: Performed By: #### L [id number] ####[facility] (BEAKER)[address] [address] Monocytes/100 WBC (Bld) 6.2 % Normal 5.0-12.0 [facility] Comment on above: Performed By: #### L [id number] ####[facility] (BEAKER)[address] [address] Neutrophils (Bld) [#/Vol] 2.80 10*3/uL Normal 1.60-7.60 [facility] Comment on above: Performed By: #### L [id number] ####[facility] ([facility])[address] [address] Neutrophils/100 WBC (Bld) 59.7 % Normal 40.0-72.0 [facility] Comment on above: Performed By: #### L [id number] ####[facility] ([facility])[address] [address] NRBC (PER 100 WBCS) BY AUTOMATED COUNT 0.0 % Normal 0 [facility] Comment on above: Performed By: #### L [id number] ####[facility] ([facility])[address] [place] [address] PLATELETS (10*3/UL) IN BLOOD AUTOMATED COUNT 225 10*3/uL Normal 150-400 [facility] Comment on above: Performed By: #### L [id number] ####[facility] (BEAKER)[address] [address] RBC (Bld) [#/Vol] 4.88 10*6/uL Normal 3.80-5.00 [facility] Comment on above: Performed By: #### L [id number] ####[facility] ([facility])[address] [place] [address] WBC (Bld) [#/Vol] 4.69 10*3/uL Normal 4.00-10.60 [facility] Comment on above: Performed By: #### L [id number] ####[facility] ([facility])[address] [place] [address] D-DIMER, QUANTITATIVEon - FIBRIN D-DIMER (UG/L FEU) IN PLATELET POOR PLASMA <0.27 Low 0.27-0.49 [facility] Comment on above: Order Comment: D-Dim er values of less than 0.50 ug/ml (FEU) are considered to be a negative predictor of thrombosis. However, the D-Dimer result should be used in conjunction with pretest probability and should not be used alone to diagnose a thrombotic event. Performed By: #### L [id number] ####[facility] ([facility])[address] [place] [address] EDPROVon 02-20-2024 EDPROV HPI Chief Complaint Patient [...] Triage Vitals Temp Heart Rate Resp BP 02/20/24184302/20/24184302/20/24184302/20/241843 36.7 ???C (98 ???F) 78 18 122/75 [...] NP 02/20/241955 Regan Aldana NP 02/20/242002 Normal [facility] LIPASEon 02-20-2024 LIPASE (U/L) IN SER/PLAS 54 U/L Normal 11-82 [facility] Comment on above: Performed By: #### L [id number] ####[facility] ([facility])[address] [place] [address] MAGNESIUMon 02-20-2024 Magnesium [Mass/Vol] 2.1 mg/dL Normal 1.9-2.7 [facility] Comment on above: Performed By: #### L [id number] ####[facility] ([facility])[address] [place] [address] TROPONIN Ion 02-20-2024 Troponin I.cardiac [Mass/Vol] 0.00 ng/mL Normal 0.00-0.04 [facility] Comment on above: Performed By: #### L [id number] ####[facility] ([facility])[address] [place] [address] MR BRAIN W AND WO CONTRASTon 02-01-2024 [...] for headaches. Electronically signed: Karthikeyan Linn. Normal [facility] Comment on above: Order Comment: Order states [...] Medications These medications were sent to [facility] - [address] [place] [address] [address] [facility] [place] [address], [facility] [address] cyanocobalamin 1,000 mcg tablet lactobacillus acidophilus 100 [...] done inpati (more content not included)... Normal [facility] POCT GLUCOSE METER UNSOLICIT ED RESULTSon 01-05-2024 Glucose [Mass/Vol] 102 mg/dL Normal 70-105 [facility] Comment on above: Order Comment: Waive d Testing in the ED is performed under the ED CLIA certificate #[id number]. Result Comment: srab ee Performed By: #### L [id number] #### [facility] (BEAKER) [address] [place] [address] 30on 01-04-2024 30 The patient is Moder ately Stable - Low risk of patient condition declining or worsening The patient's goals for the shift include comfort The clinical goals for the shift include comfort Normal [facility] 30 Daily Case Managemen t Update Multidisciplinary [...] dizziness/recurrent falls/outpt treatment failure Level of Consultation Communications Operator assumes full responsibility 01/02/24 0037 Ancillary Consults (From admission, onward) Start Ordered 01/03/24 0929 Inpatient consult to Social Work Once Provider: (Not yet assigned) Question Answer Comment Select all services needed for the patient Other Other: home health, [facility] 01/03/24 0929 Therapy Orders (From admission, onward) Start Ordered 01/02/24 1319 PT eval and treat Until therapy completed Question: Reason for PT? Answer: weakness, falls 01/02/24 1320 01/02/24 1319 OT eval and treat Until therapy completed Question: Reason for OT? Answer: weakness, falls 01/02/24 1320 Normal [facility] 30on 01-03-2024 30 Problem: Pain - Adul [...] the shift include comfort, stability and safety [facility] 30 The patient is Moder ately Stable - Low risk of patient condition declining or worsening The patient's goals for the shift include comfort The clinical goals for the shift include comfort, stability and safety [facility] BASIC METABOLIC PANELon 04-0 Anion gap [Moles/Vol] 9 mmol/L Normal 7-20 [facility] Comment on above: Performed By: #### L [id number] #### [facility] (BEAKER) [address] [place] [address] Calcium [Mass/Vol] 8.3 mg/dL Low 8.6-10.3 [facility] Comment on above: Performed By: #### L [id number] #### [facility] (BEAKER) [address] [place] [address] Chloride [Moles/Vol] 109 mmol/L High 98-107 [facility] Comment on above: Performed By: #### L [id number] #### [facility] (BEAKER) [address] [place] [address] CO2 [Moles/Vol] 26 mmol/L Normal 21-31 [facility] Comment on above: Performed By: #### L [id number] #### [facility] ([facility]) [address] [place] [address] Creatinine [Mass/Vol] 0.71 mg/dL Normal 0.60-1.20 [facility] Comment on above: Performed By: #### L [id number] #### [facility] ([facility]) [address] [place] [address] GLOMERULAR FILTRATION RATE ML/MIN/1.73 SQ M.PREDICTED 97.9 mL/min/1.73m*2 Normal >60.0 [facility] Comment on above: Result Comment: The [facility]???s estimated glomerular filtration rate (eGFR) will no [...] individuals. Performed By: #### L [id number] #### [facility] ([facility]) [address] [place] [address] Glucose [Mass/Vol] 89 mg/dL Normal 70-100 [facility] Comment on above: Performed By: #### L [id number] #### [facility] ([facility]) [address] [place] [address] Potassium [Moles/Vol] 3.5 mmol/L Normal 3.5-5.1 [facility] Comment on above: Performed By: #### L [id number] #### [facility] ([facility]) [address] [place] [address] Sodium [Moles/Vol] 140 mmol/L Normal 136-145 [facility] Comment on above: Performed By: #### L [id number] #### [facility] ([facility]) [address] [place] [address] Urea nitrogen [Mass/Vol] 6 mg/dL Low 7-25 [facility] Comment on above: Performed By: #### L [id number] #### [facility] ([facility]) [address] [place] [address] UREA NITROGEN/CREATININE (MASS RATIO) IN SER/PLAS 8.5 Normal [facility] Comment on above: Performed By: #### L [id number] #### [facility] ([facility]) [address] [place] [address] CBC WITH AUTO DIFFERENTIALon 01-03-2024 Basophils (Bld) [#/Vol] 0.01 10*3/uL Normal 0.00-0.20 [facility] Comment on above: Performed By: #### L [id number] #### [facility] ([facility]) [address] [place] [address] Basophils/100 WBC (Bld) 0.4 % Normal 0.0-1.0 [facility] Comment on above: Performed By: #### L [id number] #### [facility] ([facility]) [address] [place] [address] Eosinophils (Bld) [#/Vol] 0.11 10*3/uL Normal 0.00-0.50 [facility] Comment on above: Performed By: #### L [id number] #### [facility] ([facility]) [address] [place] [address] Eosinophils/100 WBC (Bld) 4.4 % Normal 0.0-6.0 [facility] Comment on above: Performed By: #### L [id number] #### [facility] ([facility]) [address] [place] [address] Erythrocyte distribution width (RBC) [Ratio] 13.6 % Normal 11.5-15.0 [facility] Comment on above: Performed By: #### L [id number] #### [facility] ([facility]) [address] [place] [address] ERYTHROCYTE MEAN CORPUSCULAR HEMOGLOBIN CONCENTRATION (G/DL) BY AUTOMATED 31.6 g/dL Low 32.0-35.0 [facility] Comment on above: Performed By: #### L [id number] #### [facility] (BEAKER) [address] [place] [address] Hematocrit (Bld) [Volume fraction] 41.4 % Normal 36.0-48.0 [facility] Comment on above: Performed By: #### L [id number] #### [facility] (BEAKER) [address] [place] [address] Hemoglobin (Bld) [Mass/Vol] 13.1 g/dL Normal 12.0-15.0 [facility] Comment on above: Performed By: #### L [id number] #### [facility] ([facility]) [address] [place] [address] Immature granulocytes (Bld) [#/Vol] 0.00 10*3/uL Normal 0.00-0.20 [facility] Comment on above: Performed By: #### L [id number] #### [facility] (BEAKER) [address] [place] [address] Immature granulocytes/100 WBC (Bld) 0.0 % Normal 0.0-1.0 [facility] Comment on above: Performed By: #### L [id number] #### [facility] (BEAKER) [address] [place] [address] Lymphocytes (Bld) [#/Vol] 1.12 10*3/uL Low 1.20-4.00 [facility] Comment on above: Performed By: #### L [id number] #### [facility] (BEAKER) [address] [place] [address] Lymphocytes/100 WBC (Bld) 44.8 % Normal 20.0-45.0 [facility] Comment on above: Performed By: #### L [id number] #### [facility] (BEAKER) [address] [place] [address] MCH (RBC) [Entitic mass] 28.5 pg Normal 27.0-33.0 [facility] Comment on above: Performed By: #### L [id number] #### [facility] ([facility]) [address] [place] [address] MCV (RBC) [Entitic vol] 90.2 fL Normal 82.0-98.0 [facility] Comment on above: Performed By: #### L [id number] #### [facility] ([facility]) [address] [place] [address] Monocytes (Bld) [#/Vol] 0.24 10*3/uL Normal 0.10-1.00 [facility] Comment on above: Performed By: #### L [id number] #### [facility] ([facility]) [address] [place] [address] Monocytes/100 WBC (Bld) 9.6 % Normal 5.0-12.0 [facility] Comment on above: Performed By: #### L [id number] #### [facility] ([facility]) [address] [place] [address] Neutrophils (Bld) [#/Vol] 1.02 10*3/uL Low 1.60-7.60 [facility] Comment on above: Performed By: #### L [id number] #### [facility] ([facility]) [address] [place] [address] Neutrophils/100 WBC (Bld) 40.8 % Normal 40.0-72.0 [facility] Comment on above: Performed By: #### L [id number] #### [facility] ([facility]) [address] [place] [address] NRBC (PER 100 WBCS) BY AUTOMATED COUNT 0.0 % Normal 0 [facility] Comment on above: Performed By: #### L [id number] #### [facility] ([facility]) [address] [place] [address] PLATELETS (10*3/UL) IN BLOOD AUTOMATED COUNT 203 10*3/uL Normal 150-400 [facility] Comment on above: Performed By: #### L [id number] #### [facility] ([facility]) [address] [place] [address] RBC (Bld) [#/Vol] 4.59 10*6/uL Normal 3.80-5.00 [facility] Comment on above: Performed By: #### L [id number] #### [facility] ([facility]) [address] [place] [address] WBC (Bld) [#/Vol] 2.50 10*3/uL Low 4.00-10.60 [facility] Comment on above: Performed By: #### L [id number] #### [facility] ([facility]) [address] [place] [address] FOLATEon 01-03-2024 FOLATE (NG/ML) IN SER/PLAS 34.0 ng/mL Normal 6.6-1000 [facility] Comment on above: Performed By: #### L [id number] #### [facility] ([facility]) [address] [place] [address] MAGNESIUMon 01-03-2024 Magnesium [Mass/Vol] 1.9 mg/dL Normal 1.9-2.7 [facility] Comment on above: Performed By: #### L [id number] #### [facility] ([facility]) [address] [place] [address] VITAMIN B12on 01-03-2024 Cobalamin (Vitamin B12) [Mass/Vol] 148 pg/mL Low 180-914 [facility] Comment on above: Result Comment: REFE RENCE RANGES: 180-914 pg/mL Normal 145-179 pg/mL Indeterminate <145 pg/mL Deficient Performed By: #### L [id number] #### [facility] ([facility]) [address] [place] [address] 30on 01-02-2024 30 The patient is Moder ately Stable - Low risk of patient condition declining or worsening The patient's goals for the shift include comfort The clinical goals for the shift include comfort, stability and safety Normal [facility] BASIC METABOLIC PANELon 04-0 Anion gap [Moles/Vol] 8 mmol/L Normal 7-20 [facility] Comment on above: Performed By: #### L [id number] #### [facility] ([facility]) [address] [place] [address] Calcium [Mass/Vol] 8.6 mg/dL Normal 8.6-10.3 [facility] Comment on above: Performed By: #### L [id number] #### [facility] ([facility]) [address] [place] [address] Chloride [Moles/Vol] 109 mmol/L High 98-107 [facility] Comment on above: Performed By: #### L [id number] #### [facility] ([facility]) [address] [place] [address] CO2 [Moles/Vol] 28 mmol/L Normal 21-31 [facility] Comment on above: Performed By: #### L [id number] #### [facility] ([facility]) [address] [place] [address] Creatinine [Mass/Vol] 0.82 mg/dL Normal 0.60-1.20 [facility] Comment on above: Performed By: #### L [id number] #### [facility] ([facility]) [address] [place] [address] GLOMERULAR FILTRATION RATE ML/MIN/1.73 SQ M.PREDICTED 82.3 mL/min/1.73m*2 Normal >60.0 [facility] Comment on above: Result Comment: [facility]???s estimated glomerular filtration rate (eGFR) will no [...] group of individuals. Performed By: #### L [id number] #### [facility] ([facility]) [address] [place] [address] Glucose [Mass/Vol] 96 mg/dL Normal 70-100 [facility] Comment on above: Performed By: #### L [id number] #### [facility] ([facility]) [address] [place] [address] Potassium [Moles/Vol] 3.6 mmol/L Normal 3.5-5.1 [facility] Comment on above: Performed By: #### L [id number] #### [facility] ([facility]) [address] [place] [address] Sodium [Moles/Vol] 141 mmol/L Normal 136-145 [facility] Comment on above: Performed By: #### L [id number] #### [facility] ([facility]) [address] [place] [address] Urea nitrogen [Mass/Vol] 7 mg/dL Normal 7-25 [facility] Comment on above: Performed By: #### L [id number] #### [facility] ([facility]) [address] [place] [address] UREA NITROGEN/CREATININE (MASS RATIO) IN SER/PLAS 8.5 Normal [facility] Comment on above: Performed By: #### L [id number] #### [facility] ([facility]) [address] [place] [address] CBCon 01-02-2024 Erythrocyte distribution width (RBC) [Ratio] 13.8 % Normal 11.5-15.0 [facility] Comment on above: Performed By: #### L [id number] #### [facility] ([facility]) [address] [place] [address] ERYTHROCYTE MEAN CORPUSCULAR HEMOGLOBIN CONCENTRATION (G/DL) BY AUTOMATED 31.6 g/dL Low 32.0-35.0 [facility] Comment on above: Performed By: #### L [id number] #### [facility] ([facility]) [address] [place] [address] Hematocrit (Bld) [Volume fraction] 44.0 % Normal 36.0-48.0 [facility] Comment on above: Performed By: #### L [id number] #### [facility] ([facility]) [address] [place] [address] Hemoglobin (Bld) [Mass/Vol] 13.9 g/dL Normal 12.0-15.0 [facility] Comment on above: Performed By: #### L [id number] #### [facility] ([facility]) [address] [place] [address] MCH (RBC) [Entitic mass] 29.0 pg Normal 27.0-33.0 [facility] Comment on above: Performed By: #### L [id number] #### [facility] ([facility]) [address] [place] [address] MCV (RBC) [Entitic vol] 91.9 fL Normal 82.0-98.0 [facility] Comment on above: Performed By: #### L [id number] #### [facility] ([facility]) [address] [place] [address] PLATELETS (10*3/UL) IN BLOOD AUTOMATED COUNT 201 10*3/uL Normal 150-400 [facility] Comment on above: Performed By: #### L [id number] #### [facility] ([facility]) [address] [place] [address] RBC (Bld) [#/Vol] 4.79 10*6/uL Normal 3.80-5.00 [facility] Comment on above: Performed By: #### L [id number] #### [facility] ([facility]) [address] [place] [address] WBC (Bld) [#/Vol] 3.38 10*3/uL Low 4.00-10.60 [facility] Comment on above: Performed By: #### L [id number] #### [facility] ([facility]) [address] [place] [address] CONSULTon 01-02-2024 CONSULT Reason For Consult consatnt dizziness Referring Provider: Pam Way MD History Of Present Illness Emigdio Eli is a 58 y.o. female who presented to [facility] emergency department with complaints dizziness for whom [...] by Dr. Tony Amaya on 12/29/2023 in [place] due to this persistent dizziness. She was [...] Abnormal ECG, COPD (chronic obstructive pulmonary disease) ([facility]), and Hyperlipidemia. Surgical History She has [...] 76 -- 99 % -- -- 01/01/24 2351 -- -- -- 85 -- 97 % [...] intact. Crani (more content not included)... Normal [facility] EDPROVon 01-02-2024 EDPROV HPI Chief Complaint Patient [...] Vitals Temp Heart Rate Resp BP 01/01/246 01/01/24185201/01/24185201/01/241852 36.9 ???C (98.4 ???F) 80 16 147/78 [...] Glucose, Urine Negative Bilirubin, Urine Negative Specific [place], Urine 1.041 (*) Ketones, Urine Trace (*) [...] Procedure Abnormality Status --------- ------ CBC auto differential[[id number]] Abnormal Final result Please view results for [...] Course & MDM ED Course as of 01/02/242308Jan 01, 20244 Per cardiology note 10/24/23: Stress test 09/2023 was negative for ischemia TTE 09/06/23 normal LVEF 60%, mildly elevated RVSP, mild TR [JS] 2300 Pt was signed out to ED attending (Dr Bautista) at shift change. All labs (except CBC) and imaging (except CXR) pending. Pt will likely need admi (more content not included)... Normal [facility] T4, FREEon 04-02-2024 THYROXINE (T4) FREE (NG/DL) IN SER/PLAS 1.66 ng/dL Normal 0.71-1.85 [facility] Comment on above: Performed By: #### L [id number] ####[facility] ([facility])[address] [place] [address] TSH3 REFLEX TO FT4on 024 THYROTROPIN (MIU/L) IN SER/PLAS BY DETECTION LIMIT <= 0.05 MIU/L 0.01 mIU/L Low 0.34-5.60 [facility] Comment on above: Performed By: #### L [id number] #### [facility] ([facility]) [address] [place] [address] CBC WITH AUTO DIFFERENTIALon 01-01-2024 Basophils (Bld) [#/Vol] 0.02 10*3/uL Normal 0.00-0.20 [facility] Comment on above: Performed By: #### L [id number] #### [facility] ([facility]) [address] [place] [address] Basophils/100 WBC (Bld) 0.6 % Normal 0.0-1.0 [facility] Comment on above: Performed By: #### L [id number] #### [facility] ([facility]) [address] [place] [address] Eosinophils (Bld) [#/Vol] 0.09 10*3/uL Normal 0.00-0.50 [facility] Comment on above: Performed By: #### L [id number] #### [facility] ([facility]) [address] [place] [address] Eosinophils/100 WBC (Bld) 2.6 % Normal 0.0-6.0 [facility] Comment on above: Performed By: #### L [id number] #### [facility] ([facility]) [address] [place] [address] Erythrocyte distribution width (RBC) [Ratio] 13.6 % Normal 11.5-15.0 [facility] Comment on above: Performed By: #### L [id number] #### [facility] ([facility]) [address] [place] [address] ERYTHROCYTE MEAN CORPUSCULAR HEMOGLOBIN CONCENTRATION (G/DL) BY AUTOMATED 33.9 g/dL Normal 32.0-35.0 [facility] Comment on above: Performed By: #### L [id number] #### [facility] ([facility]) [address] [place] [address] Hematocrit (Bld) [Volume fraction] 42.2 % Normal 36.0-48.0 [facility] Comment on above: Performed By: #### L [id number] #### [facility] ([facility]) [address] [address] Hemoglobin (Bld) [Mass/Vol] 14.3 g/dL Normal 12.0-15.0 [facility] Comment on above: Performed By: #### L [id number] #### [facility] ([facility]) [address] [place] [address] Immature granulocytes (Bld) [#/Vol] 0.02 10*3/uL Normal 0.00-0.20 [facility] Comment on above: Performed By: #### L [id number] #### [facility] ([facility]) [address] [place] [address] Immature granulocytes/100 WBC (Bld) 0.6 % Normal 0.0-1.0 [facility] Comment on above: Performed By: #### L [id number] #### [facility] ([facility]) [address] [place] [address] Lymphocytes (Bld) [#/Vol] 1.11 10*3/uL Low 1.20-4.00 [facility] Comment on above: Performed By: #### L [id number] #### [facility] ([facility]) [address] [place] [address] Lymphocytes/100 WBC (Bld) 32.1 % Normal 20.0-45.0 [facility] Comment on above: Performed By: #### L [id number] #### [facility] ([facility]) [address] [place] [address] MCH (RBC) [Entitic mass] 29.0 pg Normal 27.0-33.0 [facility] Comment on above: Performed By: #### L [id number] #### [facility] ([facility]) [address] [place] [address] MCV (RBC) [Entitic vol] 85.6 fL Normal 82.0-98.0 [facility] Comment on above: Performed By: #### L [id number] #### [facility] ([facility]) [address] [place] [address] Monocytes (Bld) [#/Vol] 0.28 10*3/uL Normal 0.10-1.00 [facility] Comment on above: Performed By: #### L [id number] #### [facility] ([facility]) [address] [place] [address] Monocytes/100 WBC (Bld) 8.1 % Normal 5.0-12.0 [facility] Comment on above: Performed By: #### L [id number] #### [facility] ([facility]) [address] [place] [address] Neutrophils (Bld) [#/Vol] 1.94 10*3/uL Normal 1.60-7.60 [facility] Comment on above: Performed By: #### L [id number] #### [facility] ([facility]) [address] [place] [address] Neutrophils/100 WBC (Bld) 56.0 % Normal 40.0-72.0 [facility] Comment on above: Performed By: #### L [id number] #### [facility] ([facility]) [address] [place] [address] NRBC (PER 100 WBCS) BY AUTOMATED COUNT 0.0 % Normal 0 [facility] Comment on above: Performed By: #### L [id number] #### [facility] ([facility]) [address] [place] [address] PLATELETS (10*3/UL) IN BLOOD AUTOMATED COUNT 222 10*3/uL Normal 150-400 [facility] Comment on above: Performed By: #### L [id number] #### [facility] ([facility]) [address] [place] [address] RBC (Bld) [#/Vol] 4.93 10*6/uL Normal 3.80-5.00 [facility] Comment on above: Performed By: #### L [id number] #### [facility] ([facility]) [address] [place] [address] WBC (Bld) [#/Vol] 3.46 10*3/uL Low 4.00-10.60 [facility] Comment on above: Performed By: #### L [id number] #### [facility] ([facility]) [address] [place] [address] COMPREHENSIVE METABOLIC PANE Balwinder 01-01-2024 Albumin [Mass/Vol] 4.1 g/dL Normal 3.5-5.7 [facility] Comment on above: Performed By: #### L [id number] #### [facility] ([facility]) [address] [place] [address] ALP [Catalytic activity/Vol] 81 U/L Normal 34-104 [facility] Comment on above: Performed By: #### L [id number] #### [facility] ([facility]) [address] [place] [address] ALT [Catalytic activity/Vol] 10 U/L Normal 7-52 [facility] Comment on above: Performed By: #### L [id number] #### [facility] ([facility]) [address] [place] [address] Anion gap [Moles/Vol] 14 mmol/L Normal 7-20 [facility] Comment on above: Performed By: #### L [id number] #### [facility] ([facility]) [address] [place] [address] AST [Catalytic activity/Vol] 20 U/L Normal 13-39 [facility] Comment on above: Performed By: #### L [id number] #### [facility] ([facility]) [address] [place] [address] Bilirubin [Mass/Vol] 0.5 mg/dL Normal 0.3-1.0 [facility] Comment on above: Performed By: #### L [id number] #### [facility] ([facility]) [address] [place] [address] Calcium [Mass/Vol] 9.6 mg/dL Normal 8.6-10.3 [facility] Comment on above: Performed By: #### L [id number] #### [facility] ([facility]) [address] [place] [address] Chloride [Moles/Vol] 106 mmol/L Normal 98-107 [facility] Comment on above: Performed By: #### L [id number] #### [facility] ([facility]) [address] [place] [address] CO2 [Moles/Vol] 24 mmol/L Normal 21-31 [facility] Comment on above: Performed By: #### L [id number] #### [facility] ([facility]) [address] [place] [address] Creatinine [Mass/Vol] 0.82 mg/dL Normal 0.60-1.20 [facility] Comment on above: Performed By: #### L [id number] #### [facility] ([facility]) [address] [place] [address] GLOMERULAR FILTRATION RATE ML/MIN/1.73 SQ M.PREDICTED 82.3 mL/min/1.73m*2 Normal >60.0 [facility] Comment on above: Result Comment: [facility]???s estimated glomerular filtration rate (eGFR) will no [...] group of individuals. Performed By: #### L [id number] #### [facility] ([facility]) [address] [place] [address] Glucose [Mass/Vol] 86 mg/dL Normal 70-100 [facility] Comment on above: Performed By: #### L [id number] #### [facility] ([facility]) [address] [place] [address] Potassium [Moles/Vol] 3.8 mmol/L Normal 3.5-5.1 [facility] Comment on above: Performed By: #### L [id number] #### [facility] ([facility]) [address] [place] [address] Protein [Mass/Vol] 6.7 g/dL Normal 6.0-8.3 [facility] Comment on above: Performed By: #### L [id number] #### [facility] ([facility]) [address] [place] [address] Sodium [Moles/Vol] 140 mmol/L Normal 136-145 [facility] Comment on above: Performed By: #### L [id number] #### [facility] ([facility]) [address] [place] [address] Urea nitrogen [Mass/Vol] 10 mg/dL Normal 7-25 [facility] Comment on above: Performed By: #### L [id number] #### [facility] ([facility]) [address] [place] [address] UREA NITROGEN/CREATININE (MASS RATIO) IN SER/PLAS 12.2 Normal [facility] Comment on above: Performed By: #### L [id number] #### [facility] ([facility]) [address] [place] [address] CT ABDOMEN PELVIS W IV CONTR Marquita [...] signed: Shari Turner Vldtd Invalid Interpretation Code [facility] CT HEAD WO IV CONTRASTon CT HEAD [...] signed: Shari Turner Vldtd Invalid Interpretation Code [facility] CTA HEAD W IV CONTRASTon CTA HEAD [...] signed: Shari Turner Vldtd Invalid Interpretation Code [facility] CTA NECK W IV CONTRASTon CTA NECK [...] signed: Shari Turner Vldtd Invalid Interpretation Code [facility] EDNURSon 01-01-2024 EDNURS Pt arrives with avani maldonado to triage, states that pt has been seen at [place] ER multiple times for increased dizziness, vomiting, and diarrhea for the past 2 weeks. Pt states that she is suppose to get an MRI of her brain done at [facility] but has not scheduled it yet. Reports multiple falls d/t dizziness. Normal [facility] EDPROVon 01-01-2024 EDPROV [facility] Kristy [address] [facility] [id number] EMERGENCY DEPARTMENT ENCOUNTER 01/01/2024 CHIEF COMPLAINT Chief [...] (chronic obstructive pulmonary disease) (CMS/HCC), and Hyperlipidemia. SURGICAL HISTORY has a past [...] Motor functio (more content not included)... Normal [facility] ETHANOLon 01-01-2024 ETHANOL (MG/DL) IN SER/PLAS <10 Normal [facility] Comment on above: Performed By: #### L [id number] ####[facility] ([facility])[address] [place] [address] ETHANOL CALCULATED (%) Normal [facility] Comment on above: Performed By: #### L [id number] ####[facility] ([facility])[address] [place] [address] LACTIC ACID WITH 4 HOUR REFL EXon 01-01-2024 LACTATE (MMOL/L) IN SER/PLAS 0.8 mmol/L Normal 0.5-2.2 [facility] Comment on above: Performed By: #### L [id number] #### [facility] ([facility]) [address] [facility] [place] [place] [address] LIPASEon 01-01-2024 LIPASE (U/L) IN SER/PLAS 47 U/L Normal 11-82 [facility] Comment on above: Performed By: #### L [id number] #### [facility] ([facility]) [address] [facility] [place] [address] MAGNESIUMon 01-01-2024 Magnesium [Mass/Vol] 2.1 mg/dL Normal 1.9-2.7 [facility] Comment on above: Performed By: #### L [id number] #### [facility] ([facility]) [address] [place] [address] T4, FREEon 01-01-2024 THYROXINE (T4) FREE (NG/DL) IN SER/PLAS 1.44 ng/dL Normal 0.71-1.85 [facility] Comment on above: Performed By: #### L [id number] #### [facility] ([facility]) [address] [place] [address] TOXICOLOGY PANEL URINEon AMPHETAMINE+METHAMPHET AMINE SCREEN (PRESENCE) IN URINE Negative Normal Negative [facility] Comment on above: Performed By: #### L [id number] #### [facility] ([facility]) [address] [place] [address] BARBITURATES PRESENCE IN URINE BY SCREEN METHOD Negative Normal Negative [facility] Comment on above: Performed By: #### L [id number] #### [facility] ([facility]) [address] [facility] [place] [address] Benzodiazepines Ql (U) Negative Normal Negative [facility] Comment on above: Performed By: #### L [id number] #### [facility] ([facility]) [address] [place] [address] CANNABINOID (PRESENCE) IN URINE BY SCREEN METHOD Negative Normal Negative [facility] Comment on above: Performed By: #### L [id number] #### [facility] ([facility]) [address] [place] [address] Cocaine Ql (U) Negative Normal Negative [facility] Comment on above: Performed By: #### L [id number] #### [facility] ([facility]) [address] [facility] [place] [address] METHADONE (PRESENCE) IN URINE BY SCREEN METHOD Negative Normal Negative [facility] Comment on above: Performed By: #### L [id number] #### [facility] ([facility]) [address] [place] [address] OPIATES (PRESENCE) IN URINE BY SCREEN METHOD Negative Normal [facility] Comment on above: Performed By: #### L [id number] #### [facility] ([facility]) [address] [place] [address] PHENCYCLIDINE PRESENCE IN URINE BY SCREEN METHOD Negative Normal Negative [facility] Comment on above: Performed By: #### L [id number] #### [facility] ([facility]) [address] [place] [address] Propoxyphene Screen Ql (U) Negative Normal Negative [facility] Comment on above: Performed By: #### L [id number] #### [facility] ([facility]) [address] [place] [address] TRICYCLIC ANTIDEPRESSANTS (PRESENCE) IN URINE Negative Normal Negative [facility] Comment on above: Performed By: #### L [id number] #### [facility] ([facility]) [address] [place] [address] TROPONIN Ion 01-01-2024 Troponin I.cardiac [Mass/Vol] 0.00 ng/mL Normal 0.00-0.04 [facility] Comment on above: Performed By: #### L [id number] ####[facility] ([facility])[address] [place] [address] TSH3 REFLEX TO FT4on 024 THYROTROPIN (MIU/L) IN SER/PLAS BY DETECTION LIMIT <= 0.05 MIU/L 0.02 mIU/L Low 0.34-5.60 [facility] Comment on above: Performed By: #### L [id number] #### [facility] ([facility]) [address] [place] [address] URINALYSIS WITH REFLEX CULTU REon 01-01-2024 BILIRUBIN, TOTAL PRESENCE IN URINE Negative Normal Negative [facility] Comment on above: Order Comment: Micro scopics not performed on urines with negative chemical reactions unless requested on original order. Performed By: #### L [id number] ####[facility] ([facility])[address] [place] [address] Clarity (U) Clear Normal Clear [facility] Comment on above: Order Comment: Micro scopics not performed on urines with negative chemical reactions unless requested on original order. Performed By: #### L [id number] ####[facility] ([facility])[address] [place] [address] Color (U) Straw Abnormal Yellow [facility] Comment on above: Order Comment: Micro scopics not performed on urines with negative chemical reactions unless requested on original order. Performed By: #### L [id number] ####[facility] ([facility])[address] [facility] [place] [address] Glucose (U) [Mass/Vol] Negative Normal Negative [facility] Comment on above: Order Comment: Micro scopics not performed on urines with negative chemical reactions unless requested on original order. Performed By: #### L [id number] ####[facility] ([facility])[address] [facility] [place] [address] HEMOGLOBIN PRESENCE IN URINE Negative Normal Negative [facility] Comment on above: Order Comment: Micro scopics not performed on urines with negative chemical reactions unless requested on original order. Performed By: #### L [id number] ####[facility] ([facility])[address] [place] [address] Ketones Ql (U) Trace Abnormal Negative [facility] Comment on above: Order Comment: Micro scopics not performed on urines with negative chemical reactions unless requested on original order. Performed By: #### L [id number] ####[facility] ([facility])[address] [place] [address] LEUKOCYTE ESTERASE PRESENCE IN URINE BY TEST STRIP Negative Normal Negative [facility] Comment on above: Order Comment: Micro scopics not performed on urines with negative chemical reactions unless requested on original order. Performed By: #### L [id number] ####[facility] ([facility])[address] [place] [address] NITRITE PRESENCE IN URINE Negative Normal Negative [facility] Comment on above: Order Comment: Micro scopics not performed on urines with negative chemical reactions unless requested on original order. Performed By: #### L [id number] ####[facility] (BE[facility]ER)[address] [place] [address] pH (U) 6.0 [pH] Normal 5.0-8.0 [facility] Comment on above: Order Comment: Micro scopics not performed on urines with negative chemical reactions unless requested on original order. Performed By: #### L [id number] ####[facility] ([facility])[address] [place] [address] Protein (U) [Mass/Vol] Negative Normal Negative [facility] Comment on above: Order Comment: Micro scopics not performed on urines with negative chemical reactions unless requested on original order. Performed By: #### L [id number] ####[facility] ([facility])[address] [place] [address] Specific gravity (U) [Rel density] 1.041 High 1.015-1.02 0 [facility] Comment on above: Order Comment: Micro scopics not performed on urines with negative chemical reactions unless requested on original order. Performed By: #### L [id number] ####[facility] ([facility])[address] [place] [address] CBC AUTO DIFFon 01-07-2023 BASO # 0.0 103/ul Normal 0.0-0.1 [facility] Comment on above: Performed By: #### C BC ####[facility] [address] [place] [id number]. Shahbaz Rogel Basophils/100 WBC (Bld) 0.3 % Normal 0.2-2.0 [facility] Comment on above: Performed By: #### C BC ####[facility] [address] [place] [id number]. Shahbaz Rogel EO # 0.0 103/ul Normal 0.0-0.7 [facility] Comment on above: Performed By: #### C BC ####[facility] Qrgnp[address] [place] [id number]. Shahbaz Rogel Eosinophils/100 WBC (Bld) 0.0 % Critically low 0.9-7.0 [facility] Comment on above: Performed By: #### C BC ####[facility] [address] [place] [address]Dr. Shahbaz Rogel Erythrocyte distribution width (RBC) [Ratio] 13.5 % Normal 11.0-15.0 [facility] Comment on above: Performed By: #### C BC ####[facility] [address]rys[address] [place] [address]DrChen Rogel Hematocrit (Bld) [Volume fraction] 36.4 % Normal 36.0-48.0 [facility] Comment on above: Performed By: #### C BC ####[facility] Celtrepcjy[address] [place], [place] [address]DrChen Rogel Hemoglobin (Bld) [Mass/Vol] 11.6 g/dL Critically low 12.0-16.0 [facility] Comment on above: Performed By: #### C BC ####[facility] Hkceynzeed[address] [place], [place] [address]DrChen Rogel IG # 0.06 10e3/ul Critically high 0.00-0.03 [facility] Comment on above: Performed By: #### C BC ####[facility] Kmohdszuv[address] [place], [place] [address]DrChen Rogel IG % 1.5 % Critically high 0.0-0.5 [facility] Comment on above: Performed By: #### C BC ####[facility] Bkgikdqxux[address] [place], [place] [address]DrChen Rogel LYMPH # 0.7 103/ul Critically low 1.2-3.8 [facility] Comment on above: Performed By: #### C BC ####[facility] Ppdwhzdfmq[address] [place], [place] [address]DrChen Rogel Lymphocytes/100 WBC (Bld) 16.6 % Critically low 20.5-60.0 [facility] Comment on above: Performed By: #### C BC ####[facility] Ctvzkuikai[address] [place], [place] [address]DrChen Rogel MANUAL DIFF REQ NO Normal [facility] Comment on above: Performed By: #### C BC ####[facility] [address] [place] [address]DrChen Rogel MCH (RBC) [Entitic mass] 27.6 pg Normal 26.7-34.0 [facility] Comment on above: Performed By: #### C BC ####[facility] Rapqjjfnwr[address] [place] [address]DrChen Rogel MCHC (RBC) [Mass/Vol] 31.9 g/dL Normal 29.9-35.2 [facility] Comment on above: Performed By: #### C BC ####[facility] Bvn[address]wvwqn33[address] [place] [address]DrChen Rogel MCV (RBC) [Entitic vol] 86.5 fL Normal 81.0-99.0 [facility] Comment on above: Performed By: #### C BC ####[facility] Izmxfwrddd[address] [place], [place] [address]DrChen Rogel MONO # 0.2 103/ul Critically low 0.3-0.8 [facility] Comment on above: Performed By: #### C BC ####[facility] Ekpujnzzmn[address] [place], [place] [address]DrChen Rogel Monocytes/100 WBC (Bld) 5.0 % Normal 1.7-12.0 [facility] Comment on above: Performed By: #### C BC ####[facility] Opnssvvxay24[address] [place], [place] [address]DrChen Rogel NEUT # 3.1 103/ul Normal 1.4-6.5 [facility] Comment on above: Performed By: #### C BC ####[facility] Tjlhesxvdu9[address] [place], [place] [address]DrChen Rogel Neutrophils/100 WBC (Bld) 76.6 % Critically high 43.0-75.0 [facility] Comment on above: Performed By: #### C BC ####[facility] Ueskfnzqte16[address] [place], [place] [address]DrChen Rogel Platelet mean volume (Bld) [Entitic vol] 9.9 fL Normal 9.5-13.5 [facility] Comment on above: Performed By: #### C BC ####[facility] [address] [place] [address]Dr. Shahbaz Rogel PLT 194 103/ul Normal 150-450 [facility] Comment on above: Performed By: #### C BC ####[facility] Zwgzbfkwdg[address] [place] [address]Dr. Shahbaz Rogel RBC 4.21 106/ul Normal 4.20-5.40 [facility] Comment on above: Performed By: #### C BC ####[facility] Gaptog[address]vz[address] [place] [address]Dr. Shahbaz Rogel WBC 4.0 103/ul Normal 4.0-11.0 [facility] Comment on above: Performed By: #### C BC ####[facility] Zcxouckgeg[address] [place], [place] [address]Dr. Shahbaz Rogel PROF CHEM 8 (BAS METB)on Anion gap [Moles/Vol] 9.5 mmol/L Normal [facility] Comment on above: Performed By: #### B MP ####[facility] Rvrlmyhvmr[address] [place], [place] [address]Dr. Shahbaz Rogel Calcium [Mass/Vol] 8.8 mg/dL Normal 8.5-10.1 [facility] Comment on above: Performed By: #### B MP ####[facility] Ruqvzdulsx18[address] [place], [place] [address]Dr. Shahbaz Rogel Chloride [Moles/Vol] 106 mmol/L Normal 98-107 [facility] Comment on above: Performed By: #### B MP ####[facility] Fmaojtsveh[address] [place], [place] [address]DrChen Rogel CO2 [Moles/Vol] 29.6 mmol/L Normal 21.0-32.0 [facility] Comment on above: Performed By: #### B MP ####[facility] Xbcgsyobqf43[address] [place], [place] [address]Dr. Shahbaz Rogel Creatinine [Mass/Vol] 0.80 mg/dL Normal 0.55-1.02 [facility] Comment on above: Performed By: #### B MP ####[facility] Ch[address]ib[address] [place] [address]Dr. Lilajarrod Juan F EGFR-AF SALVADOREAN >60 Normal >=60 [facility] Comment on above: Performed By: #### B MP ####[facility] L[address]uuzaf[address] [place] [id number]. Lilajarrod Juan F EGFR-NON AF SALVADOREAN >60 Normal >=60 [facility] Comment on above: Performed By: #### B MP ####[facility] Zjgnevstcd[address] [place] [address]Dr. Shahbaz Rogel Glucose [Mass/Vol] 137 mg/dL Critically high 74-106 [facility] Comment on above: Performed By: #### B MP ####[facility] Mynlevaeqi[address] [place] [address]Dr. Shahbaz Rogel Potassium [Moles/Vol] 4.1 mmol/L Normal 3.5-5.1 [facility] Comment on above: Performed By: #### B MP ####[facility] Ujomazqlrz6[address] [place] [address]Dr. Shahbaz Rogel Sodium [Moles/Vol] 141 mmol/L Normal 136-145 [facility] Comment on above: Performed By: #### B MP ####[facility] Ucuqfcvfze64[address] [place] [address]Dr. Shahbaz Rogel Urea nitrogen [Mass/Vol] 18.0 mg/dL Normal 7.0-18.0 [facility] Comment on above: Performed By: #### B MP ####[facility] Vojthyxnez25[address] [place] [address]Dr. Shahbaz Rogel Urea nitrogen/Creatinine [Mass ratio] 22.5 mg/mg Normal [facility] Comment on above: Performed By: #### B MP ####[facility] Wwxldbkvef12[address] [place] [address]Dr. Shahbaz Rogel CBC AUTO DIFFon 01-06-2023 BASO # 0.0 103/ul Normal 0.0-0.1 [facility] Comment on above: Performed By: #### C BC ####[facility] M[address]qqnuyq[address] [place] [address]Dr. Lilajarrod Rogel Basophils/100 WBC (Bld) 0.0 % Critically low 0.2-2.0 [facility] Comment on above: Performed By: #### C BC ####[facility] Nstmijwfjg8[address] [place], [place] [address]Dr. Shahbaz Rogel EO # 0.0 103/ul Normal 0.0-0.7 [facility] Comment on above: Performed By: #### C BC ####[facility] Qpwjwqynap08[address] [place], [place] [address]Dr. Shahbaz Rogel Eosinophils/100 WBC (Bld) 0.0 % Critically low 0.9-7.0 [facility] Comment on above: Performed By: #### C BC ####[facility] Bfeqdozuwg1639[address] [place], [place] [address]Dr. Shahbaz Rogel Erythrocyte distribution width (RBC) [Ratio] 13.8 % Normal 11.0-15.0 [facility] Comment on above: Performed By: #### C BC ####[facility] Istolpmhms[address] [place], [place] [address]Dr. Lilajarrod Rogel Hematocrit (Bld) [Volume fraction] 36.9 % Normal 36.0-48.0 [facility] Comment on above: Performed By: #### C BC ####[facility] Bndvuuhtzc25[address] [place], [place] [address]Dr. Shahbaz Rogel Hemoglobin (Bld) [Mass/Vol] 11.8 g/dL Critically low 12.0-16.0 [facility] Comment on above: Performed By: #### C BC ####[facility] Bqemkxdwtt026[address] [place], [place] [address]Dr. Shahbaz Rogel IG # 0.04 10e3/ul Critically high 0.00-0.03 [facility] Comment on above: Performed By: #### C BC ####[facility] Jzkwkvalga32[address] [place], [place] [address]Dr. Shahbaz Rogel IG % 1.1 % Critically high 0.0-0.5 [facility] Comment on above: Performed By: #### C BC ####[facility] Xtvrstarnl4[address] [place] [address]DrChen Shahbaz Juan F LYMPH # 0.5 103/ul Critically low 1.2-3.8 [facility] Comment on above: Performed By: #### C BC ####[facility] Oxysghsbmz79[address] [place] [address]Dr. Lilajarrod Rogel Lymphocytes/100 WBC (Bld) 13.9 % Critically low 20.5-60.0 [facility] Comment on above: Performed By: #### C BC ####[facility] Tfidjrswfg[address] [place], [place] [address]DrChen Rogel MANUAL DIFF REQ NO Normal [facility] Comment on above: Performed By: #### C BC ####[facility] Yhnidjqkuj[address] [place], [place] [address]DrChen Rogel MCH (RBC) [Entitic mass] 27.8 pg Normal 26.7-34.0 [facility] Comment on above: Performed By: #### C BC ####[facility] Vdugjwtoss[address] [place], [place] [address]Dr. Shahbaz Juan F MCHC (RBC) [Mass/Vol] 32.0 g/dL Normal 29.9-35.2 [facility] Comment on above: Performed By: #### C BC ####[facility] Pinzakbort[address] [place], [place] [address]DrChen Rogel MCV (RBC) [Entitic vol] 86.8 fL Normal 81.0-99.0 [facility] Comment on above: Performed By: #### C BC ####[facility] Lhfpktizdi38[address] [place], [place] [address]DrChen Rogel MONO # 0.1 103/ul Critically low 0.3-0.8 [facility] Comment on above: Performed By: #### C BC ####[facility] Espohcsotq428[address] [place], [place] [address]Dr. Shahbaz Rogel Monocytes/100 WBC (Bld) 3.7 % Normal 1.7-12.0 [facility] Comment on above: Performed By: #### C BC ####[facility] Xhvhxcgqbw2791 [place] [address]Dr. Lilajarrod Rogel NEUT # 3.1 103/ul Normal 1.4-6.5 [facility] Comment on above: Performed By: #### C BC ####[facility] Hbonkjocsc1519 [place] [address]DrChen Rogel Neutrophils/100 WBC (Bld) 81.3 % Critically high 43.0-75.0 [facility] Comment on above: Performed By: #### C BC ####[facility] Asjyassxtd25[address] [place], [place] [address]DrChen Rogel Platelet mean volume (Bld) [Entitic vol] 9.8 fL Normal 9.5-13.5 [facility] Comment on above: Performed By: #### C BC ####[facility] Fwzdwyantb[address] [place], [place] [address]Dr. Shahbaz Rogel PLT 184 103/ul Normal 150-450 [facility] Comment on above: Performed By: #### C BC ####[facility] Twfatvesfx4[address] [place], [place] [address]Dr. Shahbaz Rogel RBC 4.25 106/ul Normal 4.20-5.40 [facility] Comment on above: Performed By: #### C BC ####[facility] Mpjnwogvtj[address] [place], [place] [address]DrChen Rogel WBC 3.8 103/ul Critically low 4.0-11.0 [facility] Comment on above: Performed By: #### C BC ####[facility] Phvumbddiu[address] [place], [place] [address]DrChen Rogel PROF CHEM 8 (BAS METB)on Anion gap [Moles/Vol] 9.2 mmol/L Normal [facility] Comment on above: Performed By: #### B MP ####[facility] Cdfufhisjh[address] [place], [place] [address]DrChen Rogel Calcium [Mass/Vol] 8.6 mg/dL Normal 8.5-10.1 [facility] Comment on above: Performed By: #### B MP ####[facility] Uurbuesfib[address] [place] [address]Dr. Lilajarrod Rogel Chloride [Moles/Vol] 107 mmol/L Normal 98-107 [facility] Comment on above: Performed By: #### B MP ####[facility] Lxwpoxuctm5666 [place] [address]Dr. Lilajarrod Juan F CO2 [Moles/Vol] 29.3 mmol/L Normal 21.0-32.0 [facility] Comment on above: Performed By: #### B MP ####[facility] Dtnpiqjjzt019[address] [place], [place] [address]Dr. Shahbaz Rogel Creatinine [Mass/Vol] 0.79 mg/dL Normal 0.55-1.02 [facility] Comment on above: Performed By: #### B MP ####[facility] Swbphtmmdd[address] [place], [place] [address]Dr. Lilajarrod Juan F EGFR-AF SALVADOREAN >60 Normal >=60 [facility] Comment on above: Performed By: #### B MP ####[facility] Nbujvymhem99[address] [place], [place] [address]Dr. Shahbaz Rogel EGFR-NON AF SALVADOREAN >60 Normal >=60 [facility] Comment on above: Performed By: #### B MP ####[facility] Miqobowbew[address] [place], [place] [address]Dr. Shahbaz Rogel Glucose [Mass/Vol] 159 mg/dL Critically high 74-106 [facility] Comment on above: Performed By: #### B MP ####[facility] Gjfeukvqhr[address] [place], [place] [address]Dr. Shahbaz Rogel Potassium [Moles/Vol] 3.5 mmol/L Normal 3.5-5.1 [facility] Comment on above: Performed By: #### B MP ####[facility] Vzflrhuwel79[address] [place], [place] [address]Dr. Shahbaz Rogel Sodium [Moles/Vol] 142 mmol/L Normal 136-145 [facility] Comment on above: Performed By: #### B MP ####[facility] Couepmyzju[address] [place], [place] [address]Dr. Shahbaz Rogel Urea nitrogen [Mass/Vol] 21.0 mg/dL Critically high 7.0-18.0 [facility] Comment on above: Performed By: #### B MP ####[facility] Gmvsqconwq3[address] [place], [place] [address]Dr. Shahbaz Juan F Urea nitrogen/Creatinine [Mass ratio] 26.6 mg/mg Normal [facility] Comment on above: Performed By: #### B MP ####[facility] Bqwpcktavx[address] [place], [place] [address]Dr. Shahbaz Juan F XR CHEST 2 Von 01-06-2023 XR CHEST 2 V Normal [facility] CBC AUTO DIFFon 01-05-2023 BASO # 0.0 103/ul Normal 0.0-0.1 [facility] Comment on above: Performed By: #### C BC ####[facility] Comjrzlkdk[address] [place], [place] [address]Dr. Shahbaz Juan F Basophils/100 WBC (Bld) 0.2 % Normal 0.2-2.0 [facility] Comment on above: Performed By: #### C BC ####[facility] Cwonzfrdwc[address] [place], [place] [address]Dr. Shahbaz Juan F EO # 0.0 103/ul Normal 0.0-0.7 [facility] Comment on above: Performed By: #### C BC ####[facility] Exbrpefzeo[address] [place], [place] [address]Dr. Shahbaz Juan F Eosinophils/100 WBC (Bld) 0.0 % Critically low 0.9-7.0 [facility] Comment on above: Performed By: #### C BC ####[facility] Ufnrttnpyr[address] [place], [place] [address]Dr. Shahbaz Juan F Erythrocyte distribution width (RBC) [Ratio] 13.6 % Normal 11.0-15.0 [facility] Comment on above: Performed By: #### C BC ####[facility] Oryftyyzhv[address] [place], [place] [address]Dr. Shahbaz Rogel Hematocrit (Bld) [Volume fraction] 36.6 % Normal 36.0-48.0 [facility] Comment on above: Performed By: #### C BC ####[facility] [address]crkxpv[address] [place] [address]Dr. Shahbaz Rogel Hemoglobin (Bld) [Mass/Vol] 11.6 g/dL Critically low 12.0-16.0 [facility] Comment on above: Performed By: #### C BC ####[facility] Judvtroixr[address] [place] [address]Dr. Shahbaz Rogel IG # 0.03 10e3/ul Normal 0.00-0.03 [facility] Comment on above: Performed By: #### C BC ####[facility] Rtzigpdhxn020[address] [place] [address]Dr. Shahbaz Rogel IG % 0.5 % Normal 0.0-0.5 [facility] Comment on above: Performed By: #### C BC ####[facility] Izsrzhegqm82[address] [place] [address]DrChen Rogel LYMPH # 0.6 103/ul Critically low 1.2-3.8 [facility] Comment on above: Performed By: #### C BC ####[facility] T[address]avqoswz55[address] [place] [address]DrChen Rogel Lymphocytes/100 WBC (Bld) 10.7 % Critically low 20.5-60.0 [facility] Comment on above: Performed By: #### C BC ####[facility] Khbnkiuoct[address] [place] [address]DrChen Rogel MANUAL DIFF REQ NO Normal [facility] Comment on above: Performed By: #### C BC ####[facility] P[address]zxcbbnkf[address] [place], [place] [address]DrChen Rogel MCH (RBC) [Entitic mass] 27.7 pg Normal 26.7-34.0 [facility] Comment on above: Performed By: #### C BC ####[facility] Kohdogzgvt[address] [place], [place] [address]Dr. Shahbaz Rogel MCHC (RBC) [Mass/Vol] 31.7 g/dL Normal 29.9-35.2 [facility] Comment on above: Performed By: #### C BC ####[facility] [address]oml[address] [place] [id number]. Shahbaz Rogel MCV (RBC) [Entitic vol] 87.4 fL Normal 81.0-99.0 [facility] Comment on above: Performed By: #### C BC ####[facility] Omoacxcbcl[address] [place], [place] [address]DrChen Rogel MONO # 0.1 103/ul Critically low 0.3-0.8 [facility] Comment on above: Performed By: #### C BC ####[facility] Kezsnlrizh8[address] [place], [place] [address]DrChen Rogel Monocytes/100 WBC (Bld) 2.5 % Normal 1.7-12.0 [facility] Comment on above: Performed By: #### C BC ####[facility] Jeeddslprt[address] [place], [place] [address]Dr. Shahbaz Rogel NEUT # 4.8 103/ul Normal 1.4-6.5 [facility] Comment on above: Performed By: #### C BC ####[facility] Dvbugtdyms6[address] [place], [place] [address]DrChen Rogel Neutrophils/100 WBC (Bld) 86.1 % Critically high 43.0-75.0 [facility] Comment on above: Performed By: #### C BC ####[facility] Pnmvgbjxye0739[address] [place], [place] [address]Dr. Shahbaz Rogel Platelet mean volume (Bld) [Entitic vol] 10.0 fL Normal 9.5-13.5 [facility] Comment on above: Performed By: #### C BC ####[facility] Jrcemrinlf95216[address] [place], [place] [address]Dr. Shahbaz Rogel PLT 193 103/ul Normal 150-450 [facility] Comment on above: Performed By: #### C BC ####[facility] Aqmwdbwlmb[address] [place], [place] [id number]. Shahbaz Rogel RBC 4.19 106/ul Critically low 4.20-5.40 [facility] Comment on above: Performed By: #### C BC ####[facility] Zmtdwduzln40[address] [place] [address]Dr. Shahbaz Rogel WBC 5.6 103/ul Normal 4.0-11.0 [facility] Comment on above: Performed By: #### C BC ####[facility] Hpnyxyziri90[address] [place], [place] [address]DrChen Rogel PROF CHEM 8 (BAS METB)on Anion gap [Moles/Vol] 12.7 mmol/L Normal [facility] Comment on above: Performed By: #### B MP ####[facility] Zrirqwbrvm8[address] [place], [place] [address]DrChen Rogel Calcium [Mass/Vol] 8.8 mg/dL Normal 8.5-10.1 [facility] Comment on above: Performed By: #### B MP ####[facility] Zhppdarctb3295[address] [place], [place] [address]Dr. Shahbaz Rogel Chloride [Moles/Vol] 107 mmol/L Normal 98-107 [facility] Comment on above: Performed By: #### B MP ####[facility] Tkgskcwrsj4964[address] [place], [place] [address]DrChen Rogel CO2 [Moles/Vol] 26.9 mmol/L Normal 21.0-32.0 [facility] Comment on above: Performed By: #### B MP ####[facility] Ildpiwfhkz657[address] [place], [place] [address]DrChen Rogel Creatinine [Mass/Vol] 0.81 mg/dL Normal 0.55-1.02 [facility] Comment on above: Performed By: #### B MP ####[facility] Vlbryqtfxe1625[address] [place], [place] [address]DrChen Rogel EGFR-AF SALVADOREAN >60 Normal >=60 [facility] Comment on above: Performed By: #### B MP ####[facility] Hgwzmiyxvq[address] [place], [place] [address]Dr. Shahbaz Rogel EGFR-NON AF SALVADOREAN >60 Normal >=60 [facility] Comment on above: Performed By: #### B MP ####[facility] Oiopbnjxsi9174 [place] [address]Dr. Shahbaz Rogel Glucose [Mass/Vol] 144 mg/dL Critically high 74-106 [facility] Comment on above: Performed By: #### B MP ####[facility] Jbwhviqtft738[address] [place], [place] [address]Dr. Shahbaz Rogel Potassium [Moles/Vol] 3.6 mmol/L Normal 3.5-5.1 [facility] Comment on above: Performed By: #### B MP ####[facility] Tizokmzxeb763166 [address] [place], [place] [address]Dr. Shahbaz Rogel Sodium [Moles/Vol] 143 mmol/L Normal 136-145 [facility] Comment on above: Performed By: #### B MP ####[facility] Gzfjnopwxv407466 [address] [place], [place] [address]Dr. Shahbaz Rogel Urea nitrogen [Mass/Vol] 20.0 mg/dL Critically high 7.0-18.0 [facility] Comment on above: Performed By: #### B MP ####[facility] Auvyaxydhu039[address] [place], [place] [address]Dr. Shahbaz Rogel Urea nitrogen/Creatinine [Mass ratio] 24.7 mg/mg Normal [facility] Comment on above: Performed By: #### B MP ####[facility] Uzmwelphgz85[address] [place], [place] [address]Dr. Shahbaz Rogel CBC W MANUAL DIFFon 01-05-20 23 ATYPICAL LYMPH # Normal [facility] Comment on above: Performed By: #### C BCMAN ####[facility] Uxrlwkjaqz9[address] [place], [place] [address]Dr. Shahbaz Rogel ATYPICAL LYMPH % Normal [facility] Comment on above: Performed By: #### C BCMAN ####[facility] Erfbtizoop860[address] [place], [place] [address]Dr. Shahbaz Rogel BAND # 0.0 103/ul Normal 0.0-0.3 [facility] Comment on above: Performed By: #### C BCMAN ####[facility] Xoheabycfi6[address] [place] [address]Dr. Yilan Rogel BAND % 0 % Normal 0-5 [facility] Comment on above: Performed By: #### C BCMAN ####[facility] Fwbnpieunf43[address] [place] [id number]. Yilan Rogel BASOM # 0.00 103/ul Normal 0.00-0.10 [facility] Comment on above: Performed By: #### C BCMAN ####[facility] Ipbspuurnr4438 [place] [address]Dr. Yilan Rogel BASOM % 0.0 % Critically low 0.2-2.0 [facility] Comment on above: Performed By: #### C BCMAN ####[facility] Girydrnhnt[address] [place], [place] [address]Dr. Yilan Rogel BLAST # Normal [facility] Comment on above: Performed By: #### C BCBRICE ####[facility] Ijeteqgjyq[address] [place], [place] [address]Dr. Yilan Rogel BLAST % Normal [facility] Comment on above: Performed By: #### C BCMAN ####[facility] Ebnrmwayex07[address] [place], [place] [address]Dr. Shahbaz Rogel CORRECTED WBC Normal 4.0-11.0 [facility] Comment on above: Performed By: #### C BCBRICE ####[facility] Ddqbuyozmx5924[address] [place], [place] [address]Dr. Yilan Rogel EOS # 0.00 103/ul Normal 0.00-0.70 [facility] Comment on above: Performed By: #### C BCMAN ####[facility] Jnyvnwjncs[address] [place], [place] [address]Dr. Yilan Rogel EOS% 0.0 % Critically low 0.9-7.0 [facility] Comment on above: Performed By: #### C BCMAN ####[facility] Okngnzlald9214[address] [place], [place] [address]Dr. Yilan Rogel HCT 36.5 % Normal 36.0-48.0 [facility] Comment on above: Performed By: #### C CAIN ####[facility] Prbfgqdiif6470 [place] [address]Dr. Shahbaz Rogel HGB 11.8 g/dl Critically low 12.0-16.0 [facility] Comment on above: Performed By: #### C CAIN ####[facility] Hiy[address]jssxy0563 [place], [place] [address]Yp. Shahbaz Rogel LYMPHM # 0.42 103/ul Critically low 1.20-3.80 [facility] Comment on above: Performed By: #### C CAIN ####[facility] Atpaelnjsq3924 [place] [address]Dr. Shahbaz Rogel LYMPHM% 12.0 % Critically low 20.5-60.0 [facility] Comment on above: Performed By: #### C CAIN ####[facility] Qjeeasgfzq9093 [place] [address]Dr. Shahbaz Rogel MCH 28.0 pg Normal 26.7-34.0 [facility] Comment on above: Performed By: #### C CAIN ####[facility] Seqgubxjmp8604 [place] [address]Dr. Shahbaz Rogel MCHC 32.3 g/dl Normal 29.9-35.2 [facility] Comment on above: Performed By: #### C CAIN ####[facility] Qjmtpmbbfe0872 [place] [address]Dr. Shahbaz Rogel MCV 86.7 fL Normal 81.0-99.0 [facility] Comment on above: Performed By: #### C CAIN ####[facility] Onvihwkmno6756 [place], [place] [address]Lt. Shahbaz Rogel METAMYELOCYTE # Normal [facility] Comment on above: Performed By: #### C CAIN ####[facility] Kpwymxpdsk1822 [place] [address]Dr. Shahbaz Rogel METAMYELOCYTE % Normal [facility] Comment on above: Performed By: #### C CAIN ####[facility] Quwfumwaxj1795 [place] [address]Dr. Shahbaz Rogel MONOM# 0.07 103/ul Critically low 0.30-0.80 [facility] Comment on above: Performed By: #### C CAIN ####[facility] Vnezniuibo9808 [place] [address]Dr. Shahbaz Rogel MONOM% 2.0 % Normal 1.7-12.0 [facility] Comment on above: Performed By: #### C CAIN ####[facility] Lulvdeybvi0161 [place] [address]Dr. Shahbaz Rogel MPV 9.9 fL Normal 9.5-13.5 [facility] Comment on above: Performed By: #### C CAIN ####[facility] Iycorpoapf22[address] [place] [address]Dr. Shahbaz Rogel MYELOCYTE # Normal [facility] Comment on above: Performed By: #### C CAIN ####[facility] Bgdifwjnbb7945 [place] [address]Dr. Shahbaz Rogel MYELOCYTE % Normal [facility] Comment on above: Performed By: #### C CAIN ####[facility] Oqvmdafwig9694 [place] [address]Dr. Shahbaz Rogel NRBC Normal [facility] Comment on above: Performed By: #### C CAIN ####[facility] Jzwprbrzll0947 [place] [address]Dr. Shahbaz Rogel PLT 178 103/ul Normal 150-450 [facility] Comment on above: Performed By: #### C CAIN ####[facility] Alcwoepqbr3852 [place] [address]Dr. Shahbaz Rogel RBC 4.21 106/ul Normal 4.20-5.40 [facility] Comment on above: Performed By: #### C CAIN ####[facility] Mrotvnnmgh3107 [place] [address]Dr. Shahbaz Rogel RDW 13.2 % Normal 11.0-15.0 [facility] Comment on above: Performed By: #### C CAIN ####[facility] Epciuswjqt6510 [place] [address]Dr. Shahbaz Rogel SEG # 3.01 103/ul Normal 1.40-6.50 [facility] Comment on above: Performed By: #### C CAIN ####[facility] Vmcqqgivdp5044 [place] [address]Dr. Shahbaz Rogel SEG % 86.0 % Critically high 43.0-75.0 [facility] Comment on above: Performed By: #### C CAIN ####[facility] Fukfgsbhbk0777 [place] [address]Dr. Shahbaz Juan F WBC 3.5 103/ul Critically low 4.0-11.0 [facility] Comment on above: Performed By: #### C CAIN ####[facility] Oveiikwqpi7369 [place] [address]Dr. Lilajarrod Rogel PROF CHEM 8 (BAS METB)on Anion gap [Moles/Vol] 10.5 mmol/L Normal [facility] Comment on above: Performed By: #### B MP ####[facility] Babfdsykcr1887 [place] [address]Dr. Lilajarrod Rogel Calcium [Mass/Vol] 8.7 mg/dL Normal 8.5-10.1 [facility] Comment on above: Performed By: #### B MP ####[facility] Secnngdmke1941 [place] [address]Dr. Lilajarrod Rogel Chloride [Moles/Vol] 108 mmol/L Critically high 98-107 [facility] Comment on above: Performed By: #### B MP ####[facility] Emojgmdsfw0783 [place] [address]Dr. Lilajarrod Rogel CO2 [Moles/Vol] 25.2 mmol/L Normal 21.0-32.0 [facility] Comment on above: Performed By: #### B MP ####[facility] Jkyrmfstvf6717 [place] [address]Dr. Lilajarrod Rogel Creatinine [Mass/Vol] 0.77 mg/dL Normal 0.55-1.02 [facility] Comment on above: Performed By: #### B MP ####[facility] Pvfknknvmm7107 [place] [address]Dr. Lilajarrod Juan F EGFR-AF SALVADOREAN >60 Normal >=60 [facility] Comment on above: Performed By: #### B MP ####[facility] Hgyvoiengk6832 [place] [address]Dr. Shahbaz Rogel EGFR-NON AF SALVADOREAN >60 Normal >=60 [facility] Comment on above: Performed By: #### B MP ####[facility] Bpusufjanm2243 [place] [address]Dr. Shahbaz Rogel Glucose [Mass/Vol] 169 mg/dL Critically high 74-106 [facility] Comment on above: Performed By: #### B MP ####[facility] Reggkawhye7890[address] [place], [place] [address]Dr. Shahbaz Rogel Potassium [Moles/Vol] 3.7 mmol/L Normal 3.5-5.1 [facility] Comment on above: Performed By: #### B MP ####[facility] Sowtobyupw4540[address] [place], [place] [address]Dr. Shahbaz Rogel Sodium [Moles/Vol] 140 mmol/L Normal 136-145 [facility] Comment on above: Performed By: #### B MP ####[facility] Kunrjqmlqr8775[address] [place], [place] [address]Dr. Shahbaz Rogel Urea nitrogen [Mass/Vol] 14.0 mg/dL Normal 7.0-18.0 [facility] Comment on above: Performed By: #### B MP ####[facility] Viqvyfmbir4765[address] [place], [place] [address]Dr. Shahbaz Rogel Urea nitrogen/Creatinine [Mass ratio] 18.2 mg/mg Normal [facility] Comment on above: Performed By: #### B MP ####[facility] Stichbsnzf4511[address] [place], [place] [address]Dr. Shahbaz Rogel RESPIRATORY PANEL PLUSon Adenovirus Not detected Normal NOT DETECTED [facility] Comment on above: Performed By: #### R SPLUS ####[facility] Vhhmvdiuvu419[address] [place], [place] [address]Dr. Yilan Rogel B. Parapertusis Not detected Normal NOT DETECTED [facility] Comment on above: Performed By: #### R SPLUS ####[facility] Hhajnkkxum94[address] [place], [place] [address]Dr. Shahbaz Rogel B. Pertussis Not detected Normal NOT DETECTED [facility] Comment on above: Performed By: #### R SPLUS ####[facility] Rhwfkauiyw802366 [address] [place], [place] [address]Dr. Shahbaz Rogel Chlamydia Pneumoniae Not detected Normal NOT DETECTED [facility] Comment on above: Performed By: #### R SPLUS ####[facility] Utxarbvygc556966 [address] [place], [place] [address]Dr. Shahbaz Rogel Coronavirus 229E Not detected Normal NOT DETECTED [facility] Comment on above: Performed By: #### R SPLUS ####[facility] Uqcwuurglv217766 [address] [place], [place] [address]Dr. Shahbaz Rogel Coronavirus HKU1 Not detected Normal NOT DETECTED [facility] Comment on above: Performed By: #### R SPLUS ####[facility] Zqzadftgas714166 [address] [place], [place] [address]Dr. jarrod [facility] Coronavirus NL63 Not detected Normal NOT DETECTED [facility] Comment on above: Performed By: #### R SPLUS ####[facility] Tnvveisqgx620466 [address] [place], [place] [address]Dr. jarrod [facility] Coronavirus OC43 Not detected Normal NOT DETECTED [facility] Comment on above: Performed By: #### R SPLUS ####[facility] Ukvunqhxjx611866 [address] [place], [place] [address]Dr. Shahbaz Rogel Influenza A H1 Not detected Normal NOT DETECTED [facility] Comment on above: Performed By: #### R SPLUS ####[facility] Mfgglgmrye7845[address] [place], [place] [address]Dr. Shahbaz Rogel Influenza A H1 2009 Not detected Normal NOT DETECTED [facility] Comment on above: Performed By: #### R SPLUS ####[facility] Akluegpwgs316866 [address] [place], [place] [address]Dr. Shahbaz Rogel Influenza A H3 Not detected Normal NOT DETECTED [facility] Comment on above: Performed By: #### R SPLUS ####[facility] Yadiydnfnc1235 [place] [address]Dr. Shahbaz Rogel Influenza B Not detected Normal NOT DETECTED [facility] Comment on above: Performed By: #### R SPLUS ####[facility] Zgytzzyhut75[address] [place], [place] [address]Dr. Shahbaz Rogel Metapneumovirus Detected Abnormal NOT DETECTED [facility] Comment on above: Performed By: #### R SPLUS ####[facility] Jpspuvezaa5675[address] [place], [place] [address]Dr. Shahbaz Rogel Mycoplas. Pneumoniae Not detected Normal NOT DETECTED [facility] Comment on above: Performed By: #### R SPLUS ####[facility] Wodmweajlu4929[address] [place], [place] [address]Dr. Shahbaz Rogel Parainfluenza 1 Not detected Normal NOT DETECTED [facility] Comment on above: Performed By: #### R SPLUS ####[facility] Gmzmwkxtdz7729[address] [place], [place] [address]Dr. Shahbaz Rogel Parainfluenza 2 Not detected Normal NOT DETECTED [facility] Comment on above: Performed By: #### R SPLUS ####[facility] Wqsvihlpwq6926[address] [place], [place] [address]Dr. Shahbaz Rogel Parainfluenza 3 Not detected Normal NOT DETECTED [facility] Comment on above: Performed By: #### R SPLUS ####[facility] Geqdhiater9625[address] [place], [place] [address]Dr. Shahbaz Rogel Parainfluenza 4 Not detected Normal NOT DETECTED [facility] Comment on above: Performed By: #### R SPLUS ####[facility] Xvimoaqmmz9330[address] [place], [place] [address]Dr. Shahbaz Rogel Rhino/Enterovirus Not detected Normal NOT DETECTED [facility] Comment on above: Performed By: #### R SPLUS ####[facility] Upvptlrqqu6409[address] [place], [place] [address]Dr. Shahbaz Rogel RP2 Header 1 RESPIRATORY PANEL: VIRUSES Normal [facility] Comment on above: Performed By: #### R SPLUS ####[facility] Upecmexpkn3120 [place] [address]Dr. Shahbaz Rogel RP2 Header 2 RESPIRATORY PANEL: BACTERIA Normal [facility] Comment on above: Performed By: #### R SPLUS ####[facility] Oabtjjqhbe0173 [place] [address]Dr. Shahbaz Rogel RSV Not detected Normal NOT DETECTED [facility] Comment on above: Performed By: #### R SPLUS ####[facility] Kqfyenatbp9501 [place] [address]Dr. Shahbaz Rogel SARS-CoV-2 (COVID-19) RNA PAVAN+probe Ql (Unsp spec) Not detected Normal NOT DETECTED [facility] Comment on above: Performed By: #### R SPLUS ####[facility] Rdgyydnajp6540[address] [place], [place] [address]Dr. Shahbaz Juan F CARDIAC ROSALINA 3-6on 3 CK [Catalytic activity/Vol] 148 U/L Normal 26-192 [facility] Comment on above: Performed By: #### C MREP ####[facility] Exfwxksnqv9205 [place] [address]Dr. jarrod Rogel CK.MB [Mass/Vol] 0.84 ng/mL Normal <=3.60 [facility] Comment on above: Performed By: #### C MREP ####[facility] Ctqoncfqio45[address] [place], [place] [address]Dr. Shahbaz Rogel HSTROP 6.4 pg/mL Normal 4.0-51.3 [facility] Comment on above: Result Comment: CUT- OFF POINTS HAVE BEEN ESTABLISHED BASED ON THE FOURTH UNIVERSAL DEFINITIONS OF MYOCARDIALINFARCTION. THE UPPER REFERENCE LIMIT (URL) OF TROPONIN, DEFINED THE 99TH PERCENTILE OFcTnI DISTRIBUTION IN A REFERENCE POPULATION, HAS BEEN CONFIRMED THE DECISION THRESHOLDFOR RI DIAGNOSIS. Performed By: #### C MREP ####[facility] Rjjmvjmsrk[address] [place], [place] [address]Dr. Shahbaz Juan F CBC W MANUAL DIFFon 01-04-20 23 ATYPICAL LYMPH # Normal [facility] Comment on above: Performed By: #### C BCMAN ####[facility] Fcpvzobxkh4131 [place] [id number]. Shahbaz Rogel ATYPICAL LYMPH % Normal [facility] Comment on above: Performed By: #### C CAIN ####[facility] Jesvnmxedb4033 [place] [address]Dr. Yilan Rogel BAND # 0.0 103/ul Normal 0.0-0.3 [facility] Comment on above: Performed By: #### C CAIN ####[facility] Qzpgpecrxb1777 [place] [address]Dr. Yilan Rogel BAND % 0 % Normal 0-5 [facility] Comment on above: Performed By: #### C CAIN ####[facility] Gmuhpslgjs128[address] [place], [place] [address]Dr. Yijarrod Rogel BASOM # 0.00 103/ul Normal 0.00-0.10 [facility] Comment on above: Performed By: #### C CAIN ####[facility] Wuepahukfi6[address] [place], [place] [address]Dr. Shahbaz Rogel BASOM % 0.0 % Critically low 0.2-2.0 [facility] Comment on above: Performed By: #### C CAIN ####[facility] Mlkdelmvwe38[address] [place], [place] [address]Dr. Shahbaz Rogel BLAST # Normal [facility] Comment on above: Performed By: #### C CAIN ####[facility] Kvkloscgrv48[address] [place], [place] [address]Dr. Shahbaz Rogel BLAST % Normal [facility] Comment on above: Performed By: #### C CAIN ####[facility] Vfdqhjepkk4065 [place] [address]Dr. Shahbaz Rogel CORRECTED WBC Normal 4.0-11.0 [facility] Comment on above: Performed By: #### C CAIN ####[facility] Jhofliafqm9[address] [place], [place] [address]Dr. Lilalan Rogel EOS # 0.02 103/ul Normal 0.00-0.70 [facility] Comment on above: Performed By: #### C CAIN ####[facility] Hfpphshuig4755 [place], [place] [address]Lz. Shahbaz Rogel EOS% 1.0 % Normal 0.9-7.0 [facility] Comment on above: Performed By: #### C CAIN ####[facility] Lgxhmwxizw1498 [place], [place] [address]Je. Shahbaz Rogel HCT 37.5 % Normal 36.0-48.0 [facility] Comment on above: Performed By: #### C CAIN ####[facility] Gzclyakdag9202 [place], [place] [address]Qq. Shahbaz Rogel HGB 12.0 g/dl Normal 12.0-16.0 [facility] Comment on above: Performed By: #### C CAIN ####[facility] Snxjcastyp7058 [place] [id number]. Shahbaz Rogel LYMPHM # 0.21 103/ul Critically low 1.20-3.80 [facility] Comment on above: Performed By: #### C CAIN ####[facility] Lraervqeop4599 [place] [address]Dr. Shahbaz Rogel LYMPHM% 13.0 % Critically low 20.5-60.0 [facility] Comment on above: Performed By: #### C CAIN ####[facility] Skfendwhyo3943 [place], [place] [address]Nw. Shahbaz Rogel MCH 27.8 pg Normal 26.7-34.0 [facility] Comment on above: Performed By: #### C CAIN ####[facility] Yjxxgbgfkx4524 [place], [place] [address]Ik. Shahbaz Rogel MCHC 32.0 g/dl Normal 29.9-35.2 [facility] Comment on above: Performed By: #### C CAIN ####[facility] Hecfewedmp5073 [place], [place] [address]Xy. Shahbaz Rogel MCV 86.8 fL Normal 81.0-99.0 [facility] Comment on above: Performed By: #### C CAIN ####[facility] Kdvlddtkfp3848 [place] [id number]. Shahbaz Rogel METAMYELOCYTE # Normal [facility] Comment on above: Performed By: #### C CAIN ####[facility] Obimoxtron2562 [place], [place] [address]Us. Shahbaz Rogel METAMYELOCYTE % Normal [facility] Comment on above: Performed By: #### C CAIN ####[facility] Lfqhoisipq2676 [place], [place] [address]Vx. Shahbaz Rogel MONOM# 0.02 103/ul Critically low 0.30-0.80 [facility] Comment on above: Performed By: #### C CAIN ####[facility] Tnfvyuirxt2631 [place], [place] [address]Xk. Shahbaz Rogel MONOM% 1.0 % Critically low 1.7-12.0 [facility] Comment on above: Performed By: #### C CAIN ####[facility] Poknkwbluj7790 [place] [phone]. Shahbaz Juan F MPV 9.5 fL Normal 9.5-13.5 [facility] System Comment on above: Performed By: #### C CAIN ####[facility] Upendmvnoe2817 [place], [place] [address]Lt. Shahbaz Rogel MYELOCYTE # Normal [facility] Comment on above: Performed By: #### C CAIN ####[facility] Uwfwxlyhyw5215 [place], [place] [address]Ev. Shahbaz Rogel MYELOCYTE % Normal [facility] Comment on above: Performed By: #### C CAIN ####[facility] Ozgfrehywe1623 [place], [place] [address]Ns. Shahbaz Rogel NRBC Normal [facility] Comment on above: Performed By: #### C CAIN ####[facility] Rgcrtwyqlm7525 [place] [id number]. Shahbaz Juan F PLT 173 103/ul Normal 150-450 [facility] Comment on above: Performed By: #### C CAIN ####[facility] Urfihzagzt4405 [place] [id number]. Shahbaz Rogel RBC 4.32 106/ul Normal 4.20-5.40 [facility] Comment on above: Performed By: #### C CAIN ####[facility] Ommdgczadv8157 [place] [address]Dr. Shahbaz Juan F RDW 13.1 % Normal 11.0-15.0 [facility] Comment on above: Performed By: #### C CAIN ####[facility] Flfwbhkoaa8777 [place], [place] [address]Me. Lilajarrod Rogel SEG # 1.36 103/ul Critically low 1.40-6.50 [facility] Comment on above: Performed By: #### C CAIN ####[facility] Jpcctcozxr2602 [place] [address]Dr. Lilajarrod Rogel SEG % 85.0 % Critically high 43.0-75.0 [facility] Comment on above: Performed By: #### C CAIN ####[facility] Daefkytrqy6822 [place] [address]Dr. Shahbaz Rogel WBC 1.6 103/ul Critically low 4.0-11.0 [facility] Comment on above: Performed By: #### C CAIN ####[facility] Kppvsczzbf6696 [place] [phone]. Shahbaz Rogel CT CHEST WO CONon 01-03-2023 CT CHEST WO CON Normal [facility] ER URINE PROFILEon 3 Bilirubin Ql (U) Negative Normal NEGATIVE [facility] Comment on above: Performed By: #### E RUR ####[facility] Tuijooalws0616 [place] [phone] Rogel Clarity (U) CLEAR Normal CLEAR [facility] Comment on above: Performed By: #### E RUR ####[facility] Mahttsrovg1469 [place] [phone] Rogel Color (U) LT. YELLOW Normal YELLOW [facility] Comment on above: Performed By: #### E RUR ####[facility] Hgjmyghjes9571 [place] [phone] Rogel ERUAHD A micrscopic examina tion will be performed if indicated. Normal [facility] Comment on above: Performed By: #### E RUR ####[facility] Kzkuuhvzco[address] [place], [place] [address]Dr. Shahbaz Rogel Glucose Ql (U) Negative Normal NEGATIVE [facility] Comment on above: Performed By: #### E RUR ####[facility] Lyvjiuexrc377[address] [place], [place] [address]Dr. Shahbaz Rogel Hemoglobin Ql (U) Negative Normal NEGATIVE [facility] Comment on above: Performed By: #### E RUR ####[facility] Avcgpppabn8212[address] [place], [place] [address]Dr. Shahbaz Rogel Ketones Ql (U) Negative Normal NEGATIVE [facility] Comment on above: Performed By: #### E RUR ####[facility] Iafvxmnged998[address] [place], [place] [address]Dr. Shahbaz Rogel LEUKOCYTES Negative Normal NEGATIVE [facility] Comment on above: Performed By: #### E RUR ####[facility] Dmwnbsrida74[address] [place], [place] [address]Dr. Shahbaz Rogel Nitrite Ql (U) Negative Normal NEGATIVE [facility] Comment on above: Performed By: #### E RUR ####[facility] Xvcxorvmap068[address] [place], [place] [address]Dr. Shahbaz Rogel pH (U) 6.0 [pH] Normal 5-9 [facility] Comment on above: Performed By: #### E RUR ####[facility] Jwzxsendva3[address] [place], [place] [address]Dr. Shahbaz Rogel SPEC GRAVITY <=1.005 Abnormal 1.005-<=1. 025 [facility] Comment on above: Performed By: #### E RUR ####[facility] Sgrineaxvp5355[address] [place], [place] [address]Dr. Shahbaz Rogel UA PROTEIN Negative Normal NEGATIVE/ TRACE [facility] Comment on above: Performed By: #### E RUR ####[facility] Gjdzicsdey9305[address] [place], [place] [address]Dr. Shahbaz Rogel UR MICRO IND NOT INDICATED Normal [facility] Comment on above: Performed By: #### E RUR ####[facility] Bnrmsdtxuw5974[address] [place], [place] [address]Dr. Shahbaz Rogel Urobilinogen Qn (U) 0.2 {Melida'U}/dL Normal 0.2 - 1. 0 [facility] Comment on above: Performed By: #### E RUR ####[facility] Yiumteesde6895[address] [place], [place] [address]Dr. Shahbaz Rogel LACTATE/LACTIC ACIDon 2022 Lactate [Moles/Vol] 1.5 mmol/L Normal 0.4-2.0 [facility] Comment on above: Performed By: #### L ACT ####[facility] Mmigngkgco76[address] [place], [place] [address]Dr. Shahbaz Rogel PROF CHEM 8 (BAS METB)on Anion gap [Moles/Vol] 11.6 mmol/L Normal [facility] Comment on above: Performed By: #### B MP ####[facility] Xpyvvyoajf[address] [place], [place] [address]Dr. Shahbaz Rogel Calcium [Mass/Vol] 8.1 mg/dL Critically low 8.5-10.1 [facility] Comment on above: Performed By: #### B MP ####[facility] Xbqpqdsbsr[address] [place], [place] [address]Dr. Shahbaz Rogel Chloride [Moles/Vol] 109 mmol/L Critically high 98-107 [facility] Comment on above: Performed By: #### B MP ####[facility] Wuunteuwas6460[address] [place], [place] [address]Dr. Shahbaz Rogel CO2 [Moles/Vol] 25.2 mmol/L Normal 21.0-32.0 [facility] Comment on above: Performed By: #### B MP ####[facility] Cyztqvnlzh[address] [place], [place] [address]Dr. Shahbaz Rogel Creatinine [Mass/Vol] 0.89 mg/dL Normal 0.55-1.02 [facility] Comment on above: Performed By: #### B MP ####[facility] Ecvvplhcyw548[address] [place], [place] [address]Dr. Shahbaz Rogel EGFR-AF SALVADOREAN >60 Normal >=60 [facility] Comment on above: Performed By: #### B MP ####[facility] Aqttcibekm4298 [place] [address]Dr. Shahbaz Juan F EGFR-NON AF SALVADOREAN >60 Normal >=60 [facility] Comment on above: Performed By: #### B MP ####[facility] Psomgtknyz0811 [place] [phone]. Shahbaz Rogel Glucose [Mass/Vol] 167 mg/dL Critically high 74-106 [facility] Comment on above: Performed By: #### B MP ####[facility] Bcocbqcbmc7322 [place] [address]Dr. Shahbaz Rogel Potassium [Moles/Vol] 3.8 mmol/L Normal 3.5-5.1 [facility] Comment on above: Performed By: #### B MP ####[facility] Upmeuhimbc0782 [place] [address]Dr. Shahbaz Rogel Sodium [Moles/Vol] 142 mmol/L Normal 136-145 [facility] Comment on above: Performed By: #### B MP ####[facility] Wptuuqfwqd6[address] [place], [place] [address]Dr. Shahbaz Rogel Urea nitrogen [Mass/Vol] 9.0 mg/dL Normal 7.0-18.0 [facility] Comment on above: Performed By: #### B MP ####[facility] Urawvqfynq3381 [place] [address]Dr. Shahbaz Rogel Urea nitrogen/Creatinine [Mass ratio] 10.1 mg/mg Normal [facility] Comment on above: Performed By: #### B MP ####[facility] Zfsycpmwup2516 [place] [phone]. Shahbaz Rogel CARDIAC ROSALINA ADMITon 023 CK [Catalytic activity/Vol] 173 U/L Normal 26-192 [facility] Comment on above: Performed By: #### C MADM, BMP ####[facility] Snrlbllrxf4180 [place] [address]Dr. Shahbaz Rogel CK.MB [Mass/Vol] 0.55 ng/mL Normal <=3.60 [facility] Comment on above: Performed By: #### EMILIO HALL ####[facility] Zzundqxnba6405 [place] [address]Dr. Shahbaz Rogel HSTROP 5.9 pg/mL Normal 4.0-51.3 [facility] Comment on above: Result Comment: CUT- OFF POINTS HAVE BEEN ESTABLISHED BASED ON THE FOURTH UNIVERSAL DEFINITIONS OF MYOCARDIALINFARCTION. THE UPPER REFERENCE LIMIT (URL) OF TROPONIN, DEFINED THE 99TH PERCENTILE OFcTnI DISTRIBUTION IN A REFERENCE POPULATION, HAS BEEN CONFIRMED THE DECISION THRESHOLDFOR RI DIAGNOSIS. Performed By: #### EMILIO HALL ####[facility] Miwocfshnx4[address] [place], [place] [address]Dr. Shahbaz Rogel LEN 76 ng/mL Normal 9-82 [facility] Comment on above: Performed By: #### EMILIO HALL ####[facility] Yqbykgwsvn03[address] [place], [place] [address]Dr. Shahbaz Rogel CBC W MANUAL DIFFon 01-03-20 23 ATYPICAL LYMPH # Normal [facility] Comment on above: Performed By: #### Cheri BARLOW ####[facility] Buczdojywv44[address] [place], [place] [address]Dr. Shahbaz Rogel ATYPICAL LYMPH % Normal [facility] Comment on above: Performed By: #### Cheri BARLOW ####[facility] Xmdgufcntd318[address] [place], [place] [address]Dr. Shahbaz Rogel BAND # Normal 0.0-0.3 [facility] Comment on above: Performed By: #### Cheri BARLOW ####[facility] Outyaqkakq15[address] [place], [place] [address]Dr. Shahbaz Rogel BAND % Normal 0-5 [facility] Comment on above: Performed By: #### Cheri BARLOW ####[facility] Fmqwmarnrd[address] [place], [place] [address]Dr. Shahbaz Rogel BASOM # 0.00 103/ul Normal 0.00-0.10 [facility] Comment on above: Performed By: #### Cheri BARLOW ####[facility] Pnsehdnift5003 [place] [address]Dr. Shahbaz Rogel BASOM % 0.0 % Critically low 0.2-2.0 [facility] Comment on above: Performed By: #### C BCBRICE ####[facility] Berkewmlws9645 [place] [address]Dr. Shahbaz Rogel BLAST # Normal [facility] Comment on above: Performed By: #### C CAIN ####[facility] Bhzbgrysos0915 [place] [address]Dr. Shahbaz Rogel BLAST % Normal [facility] Comment on above: Performed By: #### C CAIN ####[facility] Azutjsjbvf07[address] [place], [place] [address]Dr. Shahbaz Rogel CORRECTED WBC Normal 4.0-11.0 [facility] Comment on above: Performed By: #### C CAIN ####[facility] Adgpelrirc[address] [place], [place] [address]Dr. Shahbaz Rogel EOS # 0.03 103/ul Normal 0.00-0.70 [facility] Comment on above: Performed By: #### C CAIN ####[facility] Nfbqawditr66[address] [place], [place] [address]Dr. Shahbaz Rogel EOS% 1.0 % Normal 0.9-7.0 [facility] Comment on above: Performed By: #### C CAIN ####[facility] Ovvdluiqwr52[address] [place], [place] [address]Dr. Shahbaz Rogel HCT 42.8 % Normal 36.0-48.0 [facility] Comment on above: Performed By: #### C CAIN ####[facility] Rndoolqfke7302 [place] [address]Dr. Shahbaz Rogel HGB 14.1 g/dl Normal 12.0-16.0 [facility] Comment on above: Performed By: #### C CAIN ####[facility] Jybuaabhjn23[address] [place], [place] [address]Dr. Shahbaz Rogel LYMPHM # 0.64 103/ul Critically low 1.20-3.80 [facility] Comment on above: Performed By: #### C CAIN ####[facility] Ejvshdsfpz4730 [place], [place] [address]Gy. Shahbaz Rogel LYMPHM% 23.0 % Normal 20.5-60.0 [facility] Comment on above: Performed By: #### C CAIN ####[facility] Etosnbpwdm0243 [place], [place] [address]Fo. Shahbaz Rogel MCH 28.0 pg Normal 26.7-34.0 [facility] Comment on above: Performed By: #### C CAIN ####[facility] Atwfpnnrts9246 [place] [address]Dr. Shahbaz Rogel MCHC 32.9 g/dl Normal 29.9-35.2 [facility] Comment on above: Performed By: #### C CAIN ####[facility] Vajrmejyir7355 [place] [address]Dr. Shahbaz Rogel MCV 84.9 fL Normal 81.0-99.0 [facility] Comment on above: Performed By: #### C CAIN ####[facility] Ezzzygaxnj9856 [place] [address]Dr. Shahbaz Rogel METAMYELOCYTE # Normal [facility] Comment on above: Performed By: #### C CAIN ####[facility] Itzxswsome6096 [place] [address]Dr. Shahbaz Rogel METAMYELOCYTE % Normal [facility] Comment on above: Performed By: #### C CAIN ####[facility] Ydxbcftzcb4709 [place] [address]Dr. Shahbaz Rogel MONOM# 0.31 103/ul Normal 0.30-0.80 [facility] Comment on above: Performed By: #### C CAIN ####[facility] Svyxtzeibw9880 [place] [address]Dr. Shahbaz Rogel MONOM% 11.0 % Normal 1.7-12.0 [facility] Comment on above: Performed By: #### C CAIN ####[facility] Ygqdsezwly7441 [place] [address]Dr. Shahbaz Rogel MPV 9.5 fL Normal 9.5-13.5 [facility] Comment on above: Performed By: #### C CAIN ####[facility] Grkdhikqys1035 [place] [address]Dr. Shahbaz Rogel MYELOCYTE # Normal [facility] Comment on above: Performed By: #### C CAIN ####[facility] Yczvwwsbtw6049 [place] [address]Dr. Shahbaz Rogel MYELOCYTE % Normal [facility] Comment on above: Performed By: #### C CAIN ####[facility] Vkhfzfqfbm0447 [place] [address]Dr. Shahbaz Rogel NRBC Normal [facility] Comment on above: Performed By: #### C CAIN ####[facility] Xyenqehppb0508 [place] [address]Dr. Shahbaz Rogel PLT 197 103/ul Normal 150-450 [facility] Comment on above: Performed By: #### C CAIN ####[facility] Vkpntakqsc7301 [place] [address]Dr. Shahbaz Rogel RBC 5.04 106/ul Normal 4.20-5.40 [facility] Comment on above: Performed By: #### C CAIN ####[facility] Jtgusxkqqu6030 [place] [address]Dr. Shahbaz Rogel RDW 13.2 % Normal 11.0-15.0 [facility] Comment on above: Performed By: #### C CAIN ####[facility] Ldtsubgnns7[address] [place], [place] [address]Dr. Shahbaz Rogel SEG # 1.82 103/ul Normal 1.40-6.50 [facility] Comment on above: Performed By: #### C CAIN ####[facility] Yatxosvvsp8485 [place] [address]Dr. Shahbaz Rogel SEG % 65.0 % Normal 43.0-75.0 [facility] Comment on above: Performed By: #### C CAIN ####[facility] Rqydsdvtck1403 [place] [address]Dr. Shahbaz Rogel WBC 2.8 103/ul Critically low 4.0-11.0 [facility] Comment on above: Performed By: #### C BCMAN ####[facility] Mykisbuqje1847 [place], [place] [address]Vu. Lilajarrod Juan F Covid-19 PCR (CVDTB)on SARS-CoV-2 (COVID-19) RNA PAVAN+probe Ql (Unsp spec) Not detected Normal NOT DETECTED [facility] Comment on above: Result Comment: [...] for this test is supported by the Racing Secretary And Handicapper of Health and Human Service's declaration that [...] be used). Performed By: #### C VDTB ####[facility] Eqvxkyxrcx7485 [place], [place] [address]Ve. Shahbaz Rogel D-DIMERon 01-02-2023 D-DIMER 0.38 mg/L FEU Normal <=0.59 [facility] Comment on above: Performed By: #### D DIM ####[facility] Udhlecchla1967 [place], [place] [address]Xh. Lilajarrod Rogel D-DIMER COMMENTS SEE BELOW Normal [facility] Comment on above: Result Comment: [...] generalized hospitalization. Performed By: #### D DIM ####[facility] Lwdylwyirx027[address] [place], [place] [address]Dr. Shahbaz Rogel LACTATE/LACTIC ACIDon 2022 Lactate [Moles/Vol] 2.1 mmol/L Critically high 0.4-2.0 [facility] Comment on above: Performed By: #### L ACT ####[facility] Myssnsxpzl15[address] [place], [place] [address]Dr. Shahbaz Rogel PROF CHEM 8 (BAS METB)on Anion gap [Moles/Vol] 14.3 mmol/L Normal [facility] Comment on above: Performed By: #### C EZEKIEL, BMP ####[facility] Hkllriptqg6[address] [place], [place] [address]Dr. Shahbaz Rogel Calcium [Mass/Vol] 9.0 mg/dL Normal 8.5-10.1 [facility] Comment on above: Performed By: #### C EZEKIEL, BMP ####[facility] Ixvjnezpox7[address] [place], [place] [address]Dr. Shahbaz Rogel Chloride [Moles/Vol] 102 mmol/L Normal 98-107 [facility] Comment on above: Performed By: #### C EZEKIEL, BMP ####[facility] Sphpouhrll[address] [place], [place] [address]Dr. Shahbaz Rogel CO2 [Moles/Vol] 25.5 mmol/L Normal 21.0-32.0 [facility] Comment on above: Performed By: #### C EZEKIEL, BMP ####[facility] Adgfhcagzn1448[address] [place], [place] [address]Dr. Shahbaz Rogel Creatinine [Mass/Vol] 1.01 mg/dL Normal 0.55-1.02 [facility] Comment on above: Performed By: #### C EZEKIEL, BMP ####[facility] Ynhakxxgwv035[address] [place], [place] [address]Dr. Shahbaz Rogel EGFR-AF SALVADOREAN >60 Normal >=60 [facility] Comment on above: Performed By: #### C MADM, BMP ####[facility] Vjuekahpik0440 [place] [address]Dr. Shahbaz Rogel EGFR-NON AF SALVADOREAN 56 mL/min/1.73m2 Critically low >=60 [facility] Comment on above: Performed By: #### C MADM, BMP ####[facility] Nfywfucazx0095 [place] [address]Dr. Shahbaz Rogel Glucose [Mass/Vol] 105 mg/dL Normal 74-106 [facility] Comment on above: Performed By: #### C MADM, BMP ####[facility] Yuqlpalnkm1499 [place] [address]Dr. Shahbaz Rogel Potassium [Moles/Vol] 3.8 mmol/L Normal 3.5-5.1 [facility] Comment on above: Performed By: #### C MADM, BMP ####[facility] Qqmlklybbk178[address] [place], [place] [address]Dr. Shahbaz Rogel Sodium [Moles/Vol] 138 mmol/L Normal 136-145 [facility] Comment on above: Performed By: #### C MADM, BMP ####[facility] Jukfsuamzc155[address] [place], [place] [address]Dr. Shahbaz Rogel Urea nitrogen [Mass/Vol] 9.0 mg/dL Normal 7.0-18.0 [facility] Comment on above: Performed By: #### C MADM, BMP ####[facility] Otomotrcka7[address] [place], [place] [address]Dr. Shahbaz Rogel Urea nitrogen/Creatinine [Mass ratio] 8.9 mg/mg Normal [facility] Comment on above: Performed By: #### C MADM, BMP ####[facility] Patiaygsiy39[address] [place], [place] [address]Dr. Shahbaz Rogel XR CHEST 1 Von 01-02-2023 XR CHEST 1 V Normal [facility] INSULINon 11-02-2022 Insulin 6.0 uIU/mL Normal 2.6-24.9 [facility] Comment on above: Performed By: #### I NSULIN ####[facility] Uoncifzybi4312 [place] [address]Dr. Shahbaz Rogel CBC AUTO DIFFon 11-01-2022 BASO # 0.0 103/ul Normal 0.0-0.1 [facility] Comment on above: Performed By: #### C BC ####[facility] Slfteacnxk39[address] [place], [place] [address]Dr. Shahbaz Juan F Basophils/100 WBC (Bld) 0.5 % Normal 0.2-2.0 [facility] Comment on above: Performed By: #### C BC ####[facility] Nbopihfcev[address] [place], [place] [address]Dr. Shahbaz Rogel EO # 0.2 103/ul Normal 0.0-0.7 [facility] Comment on above: Performed By: #### C BC ####[facility] Nheeccfffo747[address] [place], [place] [address]Dr. Lilajarrod Rogel Eosinophils/100 WBC (Bld) 5.2 % Normal 0.9-7.0 [facility] Comment on above: Performed By: #### C BC ####[facility] Jzsmvacpiq826[address] [place], [place] [address]Dr. Shahbaz Rogel Erythrocyte distribution width (RBC) [Ratio] 12.7 % Normal 11.0-15.0 [facility] Comment on above: Performed By: #### C BC ####[facility] Xfyuwsolmg23[address] [place], [place] [address]Dr. Shahbaz Rogel Hematocrit (Bld) [Volume fraction] 46.4 % Normal 36.0-48.0 [facility] Comment on above: Performed By: #### C BC ####[facility] Jkzhjypffz[address] [place], [place] [address]Dr. Shahbaz Rogel Hemoglobin (Bld) [Mass/Vol] 14.9 g/dL Normal 12.0-16.0 [facility] Comment on above: Performed By: #### C BC ####[facility] Pccubxcquc20[address] [place], [place] [address]Dr. Shahbaz Rogel IG # 0.00 10e3/ul Normal 0.00-0.03 [facility] Comment on above: Performed By: #### C BC ####[facility] Avzltlnbmv5581 [place] [address]Dr. Shahbaz Rogel IG % 0.0 % Normal 0.0-0.5 [facility] Comment on above: Performed By: #### C BC ####[facility] Pazpgmzhxw0495 [place] [address]Dr. Shahbaz Rogel LYMPH # 1.1 103/ul Critically low 1.2-3.8 [facility] Comment on above: Performed By: #### C BC ####[facility] Xedmpqgsaf3375 [place] [address]Dr. Shahbaz Juan F Lymphocytes/100 WBC (Bld) 25.5 % Normal 20.5-60.0 [facility] Comment on above: Performed By: #### C BC ####[facility] Sclhupeyku49[address] [place], [place] [address]Dr. Shahbaz Rogel MANUAL DIFF REQ NO Normal [facility] Comment on above: Performed By: #### C BC ####[facility] Fyldjhzdao[address] [place], [place] [address]Dr. Shahbaz Rogel MCH (RBC) [Entitic mass] 27.8 pg Normal 26.7-34.0 [facility] Comment on above: Performed By: #### C BC ####[facility] Dtkjeapkoj4[address] [place], [place] [address]Dr. Shahbaz Rogel MCHC (RBC) [Mass/Vol] 32.1 g/dL Normal 29.9-35.2 [facility] Comment on above: Performed By: #### C BC ####[facility] Lciczpvufj30[address] [place], [place] [address]Dr. Shahbaz Rogel MCV (RBC) [Entitic vol] 86.6 fL Normal 81.0-99.0 [facility] Comment on above: Performed By: #### C BC ####[facility] Lrkxzdcszn4996 [place] [address]Dr. Lilajarrod Rogel MONO # 0.2 103/ul Critically low 0.3-0.8 [facility] Comment on above: Performed By: #### C BC ####[facility] Akbhqjwvgq2184 [place] [address]Dr. Shahbaz Rogel Monocytes/100 WBC (Bld) 5.4 % Normal 1.7-12.0 [facility] Comment on above: Performed By: #### C BC ####[facility] Asrohvmefd5305 [place] [address]Dr. Shahbaz Rogel NEUT # 2.7 103/ul Normal 1.4-6.5 [facility] Comment on above: Performed By: #### C BC ####[facility] Ysyghbkkfn8532 [place] [address]Dr. Shahbaz Rogel Neutrophils/100 WBC (Bld) 63.4 % Normal 43.0-75.0 [facility] Comment on above: Performed By: #### C BC ####[facility] Ldbdniablr3582 [place] [address]Dr. Shahbaz Rogel Platelet mean volume (Bld) [Entitic vol] 9.4 fL Critically low 9.5-13.5 [facility] Comment on above: Performed By: #### C BC ####[facility] Hydeezpfhv1529 [place] [address]Dr. Shahbaz Rogel PLT 216 103/ul Normal 150-450 [facility] Comment on above: Performed By: #### C BC ####[facility] Whtnctxynf5992 [place] [address]Dr. Shahbaz Rogel RBC 5.36 106/ul Normal 4.20-5.40 [facility] [facility] Comment on above: Performed By: #### C BC ####[facility] [address] [place] [id number]. Shahbaz Rogel WBC 4.2 103/ul Normal 4.0-11.0 [facility] Comment on above: Performed By: #### C BC ####[facility] [address] [place] [id number]. Shahbaz Rogel FREE THYROXINE INDEX T7on FTI 2.92 Normal 1.30-4.50 [facility] Comment on above: Performed By: #### C MP, LIPID, T7, TSH ####[facility] [address] [place] [id number]. Shahbaz Rogel T3U 37.0 % Normal 30.0-39.0 [facility] Comment on above: Performed By: #### C MP, LIPID, T7, TSH ####[facility] [address] [place] [id number]. Shahbaz Rogel T4 [Mass/Vol] 7.90 ug/dL Normal 4.80-13.90 [facility] Comment on above: Performed By: #### C MP, LIPID, T7, TSH ####[facility] [address] [place] [phone]. Shahbaz Rogel GLYCOHEMOGLOBIN A1Con 2022 ADA RECOMMENDATION SEE BELOW Normal [facility] Comment on above: Result Comment: ADA RECOMMENDED LIMIT 4.0 - 6.0 ADA THERAPEUTIC TARGET < 7.0 ACTION SUGGESTED > 7.0 Performed By: #### A 1C ####[facility] [address] [place], [place] [address]Dr. Shahbaz Rogel Glucose [Mass/Vol] 120 mg/dL Normal [facility] Comment on above: Performed By: #### A 1C ####[facility] [address] [place], [place] [address]Dr. Shahbaz Rogel HbA1c (Bld) [Mass fraction] 5.8 % Normal 4.5-6.2 [facility] Comment on above: Performed By: #### A 1C ####[facility] [address] [place], [place] [address]Dr. Shahbaz Rogel IRONon 11-01-2022 Iron [Mass/Vol] 54.0 ug/dL Normal 50.0-170.0 [facility] Comment on above: Performed By: #### I GRIS ####[facility] [address] [place], [place] [address]Dr. Shahbaz Rogel LIPID PROFILEon 11-01-2022 CHOL-HDL RATIO NORM SEE BELOW Normal [facility] Comment on above: Result Comment: 3.3 - 4.4 LOW RISK 4.4 - 7.1 AVERAGE RISK 7.1 - 11.0 MODERATE RISK >11.0 HIGH RISK Performed By: #### C MP, LIPID, T7, TSH ####[facility] [address] [place] [phone]. Shahbaz Rogel Cholesterol [Mass/Vol] 203 mg/dL Critically high <=200 [facility] Comment on above: Performed By: #### C MP, LIPID, T7, TSH ####[facility] [address] [place] [phone]. Shahbaz Rogel Cholesterol in HDL [Mass/Vol] 42 mg/dL Normal 40-60 [facility] Comment on above: Performed By: #### C MP, LIPID, T7, TSH ####[facility] [address] [place] [phone]. Shahbaz Rogel Cholesterol in LDL [Mass/Vol] 121.4 mg/dL Normal [facility] Comment on above: Performed By: #### C MP, LIPID, T7, TSH ####[facility] [address] [place] [address]Dr. Shahbaz Rogel Cholesterol.total/Chol esterol in HDL [Mass ratio] 4.8 {ratio} Normal [facility] Comment on above: Performed By: #### C MP, LIPID, T7, TSH ####[facility] [address] [place] [phone]. Shahbaz Rogel HDL NORMAL > or = 60 mg/dl - LO W CARDIOVASCULAR RISK <40 mg/dl - HIGH CARDIOVASCULAR RISK Normal [facility] Comment on above: Performed By: #### C MP, LIPID, T7, TSH ####[facility] [address] [place] [phone]. Shahbaz Rogel LDL CALC NORMAL SEE BELOW Normal [facility] Comment on above: Result Comment: <100 mg/dl OPTIMAL 100 - 129 mg/dl NEAR OR ABOVE OPTIMAL 130 - 159 mg/dl BORDERLINE HIGH 160 - 189 mg/dl HIGH >190 mg/dl VERY HIGH Performed By: #### C MP, LIPID, T7, TSH ####[facility] [address] [place] [address]Dr. Shahbaz Rogel Triglyceride [Mass/Vol] 198 mg/dL Critically high <=150 [facility] Comment on above: Performed By: #### C MP, LIPID, T7, TSH ####[facility] [address] [place] [address]Dr. Shahbaz Rogel VLDL CALC 39.6 mg/dL Normal [facility] Comment on above: Performed By: #### C MP, LIPID, T7, TSH ####[facility] [address] [place] [address]Dr. Shahbaz Rogel PROF 14(COMP METB)on 023 Albumin [Mass/Vol] 4.1 g/dL Normal 3.4-5.0 [facility] Comment on above: Performed By: #### C MP, LIPID, T7, TSH ####[facility] [address] [place] [address]Dr. Shahbaz Rogel Albumin/Globulin [Mass ratio] 1.0 {ratio} Normal [facility] Comment on above: Performed By: #### C MP, LIPID, T7, TSH ####[facility] [address] [place] [address]Dr. Shahbaz Rogel ALP [Catalytic activity/Vol] 126 U/L Critically high 46-116 [facility] Comment on above: Performed By: #### C MP, LIPID, T7, TSH ####[facility] [address] [place] [address]Dr. Shahbaz Rogel ALT [Catalytic activity/Vol] 30 U/L Normal 14-59 [facility] Comment on above: Performed By: #### C MP, LIPID, T7, TSH ####[facility] [address] [place] [address]Dr. Shahbaz Rogel Anion gap [Moles/Vol] 12.3 mmol/L Normal [facility] Comment on above: Performed By: #### C MP, LIPID, T7, TSH ####[facility] [address] [place] [address]Dr. Shahbaz Rogel AST [Catalytic activity/Vol] 25 U/L Normal 15-37 [facility] Comment on above: Performed By: #### C MP, LIPID, T7, TSH ####[facility] [address] [place] [address]Dr. Shahbaz Rogel Bilirubin [Mass/Vol] 0.5 mg/dL Normal 0.2-1.0 [facility] Comment on above: Performed By: #### C MP, LIPID, T7, TSH ####[facility] [address] [place] [address]Dr. Shahbaz Rogel Calcium [Mass/Vol] 9.4 mg/dL Normal 8.5-10.1 [facility] Comment on above: Performed By: #### C MP, LIPID, T7, TSH ####[facility] [address] [place] [address]Dr. Shahbaz Rogel Chloride [Moles/Vol] 104 mmol/L Normal 98-107 [facility] Comment on above: Performed By: #### C MP, LIPID, T7, TSH ####[facility] [address] [place], [place] [address]Dr. Shahbaz Rogel CO2 [Moles/Vol] 29.6 mmol/L Normal 21.0-32.0 [facility] Comment on above: Performed By: #### C MP, LIPID, T7, TSH ####[facility] [address] [place], [place] [address]Dr. Shahbaz Rogel Creatinine [Mass/Vol] 0.91 mg/dL Normal 0.55-1.02 [facility] Comment on above: Performed By: #### C MP, LIPID, T7, TSH ####[facility] [address] [place] [address]Dr. Shahbaz Rogel EGFR-AF SALVADOREAN >60 Normal >=60 [facility] Comment on above: Performed By: #### C MP, LIPID, T7, TSH ####[facility] [address] [place], [place] [address]Dr. Shahbaz Rogel EGFR-NON AF SALVADOREAN >60 Normal >=60 [facility] Comment on above: Performed By: #### C MP, LIPID, T7, TSH ####[facility] [address] [place], [place] [address]Dr. Shahbaz Rogel Globulin (S) [Mass/Vol] 4.0 g/dL Normal [facility] Comment on above: Performed By: #### C MP, LIPID, T7, TSH ####[facility] [address] [place] [address]Dr. Shahbaz Rogel Glucose [Mass/Vol] 85 mg/dL Normal 74-106 [facility] Comment on above: Performed By: #### C MP, LIPID, T7, TSH ####[facility] [address] [place] [address]Dr. Shahbaz Rogel Potassium [Moles/Vol] 3.9 mmol/L Normal 3.5-5.1 [facility] Comment on above: Performed By: #### C MP, LIPID, T7, TSH ####[facility] [address] [place] [address]Dr. Shahbaz Rogel Protein [Mass/Vol] 8.1 g/dL Normal 6.4-8.2 [facility] Comment on above: Performed By: #### C MP, LIPID, T7, TSH ####[facility] [address] [place], [place] [address]Dr. Shahbaz Rogel Sodium [Moles/Vol] 142 mmol/L Normal 136-145 [facility] Comment on above: Performed By: #### C MP, LIPID, T7, TSH ####[facility] [address] [place] [address]Dr. Shahbaz Rogel Urea nitrogen [Mass/Vol] 9.0 mg/dL Normal 7.0-18.0 [facility] Comment on above: Performed By: #### C MP, LIPID, T7, TSH ####[facility] [address] [place] [address]Dr. Shahbaz Rogel Urea nitrogen/Creatinine [Mass ratio] 9.9 mg/mg Normal [facility] Comment on above: Performed By: #### C MP, LIPID, T7, TSH ####[facility] [address] [place], [place] [address]Dr. Lilalan Rogel TSHon 11-01-2022 TSH 0.045 uIU/mL Critically low 0.358-3.74 0 [facility] Comment on above: Performed By: #### C MP, LIPID, T7, TSH ####[facility] [address] [place], [place] [address]Wr. Shahbaz Rogel XR HUMERUS LT MIN 2Von 10-01 XR HUMERUS LT MIN 2V Normal [facility] XR LSPINE 2_3 VIEWSon 2021 XR LSPINE 2_3 VIEWS Normal [facility] XR CHEST 1 Von 08-25-2022 XR CHEST 1 V Normal [facility] ACID FAST SMEAR AND CXon Acid Fast Culture Negative Normal [facility] Comment on above: Result Comment: No a ninfa fast bacilli isolated after 6 weeks. Performed By: #### A FB ####[facility] [address] [place], [place] [address]Ye. Shahbaz Rogel Acid Fast Smear Negative Normal [facility] Comment on above: Performed By: #### A FB ####[facility] [address] [place], [place] [address]Yu. Shahbaz Rogel [employer] Specimen Processing Concentration Normal [facility] Comment on above: Performed By: #### A FB ####[facility] [address] [place], [place] [address]Ro. Shahbaz Rogel Bacteria identified Anaer cx Nom (Unsp spec)Ordered By: Rodolfo Harley on 08-13-2022 Anaerobic microbial culture No Anaerobes Isolated 3 Days [facility] Basophils Auto (Bld) [#/Vol] Ordered By: Rodolfo Harley on 08-12-2022 Basophils (Bld) [#/Vol] 0.0 10*3/uL 0.0-0.2 [facility] Basophils/100 WBC Auto (Bld) Ordered By: Rodolfo Harley on 08-12-2022 Basophils/100 WBC (Bld) 0.4 % . [facility] Creatinine and Glomerular fi ltration rate.predicted panel (S/P/Bld)Ordered By: Rodolfo Harley on 08-12-2022 Creatinine [Mass/Vol] 0.74 mg/dL 0.44-1.03 [facility] Eosinophils Auto (Bld) [#/Vo l]Ordered By: Rodolfo Harley on 08-12-2022 Eosinophils (Bld) [#/Vol] 0.0 10*3/uL 0.0-0.45 [facility] Eosinophils/100 WBC Auto (Bl d)Ordered By: Rodolfo Harley on 08-12-2022 Eosinophils/100 WBC (Bld) 0.0 % . [facility] Erythrocyte distribution wid th Auto (RBC) [Ratio]Ordered By: Rodolfo Harley on 08-12-2022 Erythrocyte distribution width (RBC) [Ratio] 14.2 % 11.9-15.3 [facility] Estimated glomerular filtrat ion rate (GFR) non- AmericanOrdered By: Rodolfo Harley on 08-12-2022 GFR/1.73 sq M.predicted among non-blacks MDRD (S/P/Bld) [Vol rate/Area] > 60 mL/Min [facility] Hematocrit Auto (Bld) [Volum e fraction]Ordered By: Rodolfo Harley on 08-12-2022 Hematocrit (Bld) [Volume fraction] 38.0 % 34.0-46.4 [facility] Hemoglobin [Mass/volume] in BloodOrdered By: Rodolfo Harley on 08-12-2022 Hemoglobin (Bld) [Mass/Vol] 12.5 g/dL 11.8-15.4 [facility] Laboratory - Hematology and Cell countsOrdered By: Rodolfo Harley on 08-12-2022 Nucleated RBC/100 WBC (Bld) [Ratio] 0.1 % 0-0.5 [facility] Leukocytes [#/volume] in Blo od by Automated countOrdered By: Rodolfo Harley on 08-12-2022 WBC (Bld) [#/Vol] 5.8 10*3/uL 4.5-11.0 [facility] Lymphocytes Auto (Bld) [#/Vo l]Ordered By: Rodolfo Harley on 08-12-2022 Lymphocytes (Bld) [#/Vol] 0.7 10*3/uL 1.00-4.8 [facility] Lymphocytes/100 WBC Auto (Bl d)Ordered By: Rodolfo Harley on 08-12-2022 Lymphocytes/100 WBC (Bld) 11.4 % . [facility] MCH Auto (RBC) [Entitic mass ]Ordered By: Rodolfo Harley on 08-12-2022 MCH (RBC) [Entitic mass] 28.1 pg 24.7-34.3 [facility] MCHC Auto (RBC) [Mass/Vol]Or dered By: Rodolfo Harley on 08-12-2022 MCHC (RBC) [Mass/Vol] 32.9 g/dL 32.0-35.0 [facility] MCV Auto (RBC) [Entitic vol] Ordered By: Rodolfo Harley on 08-12-2022 MCV (RBC) [Entitic vol] 85.4 fL 80-100 [facility] Monocytes Auto (Bld) [#/Vol] Ordered By: Rodolfo Harley on 08-12-2022 Monocytes (Bld) [#/Vol] 0.3 10*3/uL 0.0-0.8 [facility] Monocytes/100 WBC Auto (Bld) Ordered By: Rodolfo Harley on 08-12-2022 Monocytes/100 WBC (Bld) 4.8 % . [facility] Neutrophils Auto (Bld) [#/Vo l]Ordered By: Rodolfo Harley on 08-12-2022 Neutrophils (Bld) [#/Vol] 4.8 10*3/uL 1.8-7.7 [facility] Neutrophils/100 WBC Auto (Bl d)Ordered By: Rodolfo Harley on 08-12-2022 Neutrophils/100 WBC (Bld) 83.4 % . [facility] No Panel InformationOrdered By: Rodolfo Harley on 08-12-2022 Estimated GFR () > 60 mL/Min [facility] Comment on above: GFR estimated refere nce range: According to KDOQI guidelines, <60 ml/min/1.73m2 is sufficient to diagnose a patient with chronic kidney disease. Pharmacy Creatinine Clearance (Chem 59.45 [facility] Platelet mean volume Auto (B ld) [Entitic vol]Ordered By: Rodolfo Harley on 08-12-2022 Platelet mean volume (Bld) [Entitic vol] 7.9 fL 6.3-10.7 [facility] Platelets Auto (Bld) [#/Vol] Ordered By: Rodolfo Harley on 08-12-2022 Platelets (Bld) [#/Vol] 196 10*3/uL 150-450 [facility] RBC Auto (Bld) [#/Vol]Ordere d By: Rodolfo Harley on 08-12-2022 RBC (Bld) [#/Vol] 4.45 10*6/uL 3.60-5.00 [facility] Serum or plasma anion gap de terminationOrdered By: Rodolfo Harley on 08-12-2022 Anion gap [Moles/Vol] 7.5 mmol/L 6.0-15.0 [facility] Serum or plasma calcium dagoberto urement (mass/volume)Ordered By: Rodolfo Halrey on 08-12-2022 Calcium [Mass/Vol] 8.7 mg/dL 8.2-10.2 [facility] Serum or plasma chloride anahy surement (moles/volume)Ordered By: Rodolfo Harley on 08-12-2022 Chloride [Moles/Vol] 108 mmol/L 95-114 [facility] Serum or plasma glucose dagoberto urement (mass/volume)Ordered By: Rodolfo Harley on 08-12-2022 Glucose [Mass/Vol] 133 mg/dL 70-100 [facility] Comment on above: ADA recommended refe rence rangeRandom Glucose Reference Range is dependent on time and content of last meal. Glucose of more than 200 mg/dL in a nonstressed, ambulatory subject supports the diagnosis of Diabetes Mellitus. Serum or plasma potassium me asurement (moles/volume)Ordered By: Rodolfo Harley on 08-12-2022 Potassium [Moles/Vol] 3.7 mmol/L 3.5-5.1 [facility] Serum or plasma sodium measu rement (moles/volume)Ordered By: Rodolfo Harley on 08-12-2022 Sodium [Moles/Vol] 139 mmol/L 136-146 [facility] Serum or plasma total carbon dioxide measurement (moles/volume)Ordered By: Rodolfo Harley on 08-12-2022 CO2 [Moles/Vol] 27.2 mmol/L 22.0-30.0 [facility] Serum or plasma urea nitroge n measurement (mass/volume)Ordered By: Rodolfo Harley on 08-12-2022 Urea nitrogen [Mass/Vol] 14 mg/dL 9- [facility] ABO and Rh group post transf usion reaction Nom (Bld)Ordered By: Rodolfo Harley on 08-10-2022 Microscopic observation Gram stain Nom (Unsp spec) [facility] [employer] cultureOrdered By: Sissy Harley on 08-10-2022 Mycobacterium sp identified Org specific cx Nom (Unsp spec) [facility] [employer] smearOrdered By: Rodolfo Harley on 08-10-2022 Microscopic observation Smear Nom (Unsp spec) [facility] Aerobic cultureOrdered By: Margie Harley on 08-10-2022 Bacteria identified Aer cx Nom (Unsp spec) No Growth 2 Days [facility] Anaerobic cultureOrdered By: Rodolfo Harley on 08-10-2022 Bacteria identified Anaer cx Nom (Unsp spec) No Anaerobes Isolated 3 Days [facility] Arterial blood standard base excess determination by calculationOrdered By: Rodolfo Harley on 08-10-2022 Base excess standard Calc (BldA) [Moles/Vol] 5 mmol/L -2-3 [facility] Blood carbon dioxide, total measurement by calculation (moles/volume)Ordered By: Rodolfo Harley on 08-10-2022 CO2 Calc (Bld) [Moles/Vol] 30 mmol/L - [facility] CT biopsyOrdered By: Rodolfo Harley on 08-10-2022 Hematocrit (Bld) [Volume fraction] 40.0 % 38.0-51.0 [facility] Fungal cultureOrdered By: Rolanda Harley on 08-10-2022 Fungus identified Cx Nom (Unsp spec) [facility] Glucose Glucometer (BldC) [M ass/Vol]Ordered By: Rodolfo Harley on 08-10-2022 Glucose [Mass/Vol] 126 mg/dL 70-105 [facility] Gram stain for investigation of transfusion reactionOrdered By: Rodolfo Harley on 08-10-2022 Microscopic observation Gram stain Nom (Unsp spec) [facility] Hemoglobin Calc (Bld) [Mass/ Vol]Ordered By: Rodolfo Harley on 08-10-2022 Hemoglobin (Bld) [Mass/Vol] 13.6 g/dL 12.0-17.0 [facility] Monocyte %Ordered By: Jean Harley on 08-10-2022 Monocyte % 39.9 mm[Hg] 35-51 [facility] Monocyte % 45 mm[Hg] 80-105 [facility] No Panel InformationOrdered By: Rodolfo Harley on 08-10-2022 Chlamydia psittaci Antibodies <1:10 Neg:<1:10 [facility] Comment on above: This test was develo ped and its performance characteristicsdetermined by [employer]. It has not been cleared or approvedby the Food and Drug Administration. The FDA hasdetermined that such clearance or approval is notnecessary.Performed at: [address] [id number] Director: Shelly Vargas MD, Phone: [phone] Potassium (Bld) [Moles/Vol]O rdered By: Rodolfo Harley on 08-10-2022 Potassium [Moles/Vol] 3.8 mmol/L 3.5-4.9 [facility] Sodium (Bld) [Moles/Vol]Orde red By: Rodolfo Harley on 08-10-2022 Sodium [Moles/Vol] 141 mmol/L 138-146 [facility] Whole blood bicarbonate dagoberto urementOrdered By: Rodolfo Harley on 08-10-2022 HCO3 (Bld) [Moles/Vol] 29.1 mmol/L 22.0-28.0 [facility] Whole blood ionized calcium measurement (moles/volume)Ordered By: Rodolfo Harley on 08-10-2022 Calcium.ionized (Bld) [Moles/Vol] 1280 mmol/L 1.12-1.32 [facility] Whole blood oxygen saturatio n measurementOrdered By: Rodolfo Harley on 08-10-2022 Oxygen saturation in Blood 84 % 95-98 [facility] Comment on above: Reference ranges ref lect baseline specimens only Whole blood pHOrdered By: Rolanda Harley on 08-10-2022 pH (Bld) 7.470 Units 7.31-7.45 [facility] Urine culture routineOrdered By: Rodolfo Harley on 08-07-2022 Bacteria identified Cx Nom (U) 2 Days [facility] Activated partial thrombopla stin time (aPTT) in platelet poor plasma by coagulation aOrdered By: Rodolfo Harley on 08-05-2022 aPTT Coag (PPP) [Time] 35.9 s 25.1-36.5 [facility] Basophils Auto (Bld) [#/Vol] Ordered By: Rodolfo Harley on 08-05-2022 Basophils (Bld) [#/Vol] 0.0 10*3/uL 0.0-0.2 [facility] Basophils/100 WBC Auto (Bld) Ordered By: Rodolfo Harley on 08-05-2022 Basophils/100 WBC (Bld) 0.5 % . [facility] Body fluid albumin measureme nt (mass/volume)Ordered By: Rodolfo Harley on 08-05-2022 Albumin (Body fld) [Mass/Vol] 3.8 g/dL 3.2-5.5 [facility] COVID-19 Positive/NegativeOr dered By: Rodolfo Harley on 08-05-2022 SARS-CoV-2 (COVID-19) N gene PAVAN+probe Ql (Resp) Negative Negative [facility] Comment on above: Testing for SARS-CoV -2 by RT-PCRThis test was developed and its performance characteristics determined by [employer] ([employer]) and validated at the [facility]. This test has not been [...] on 08-05-2022 Creatinine [Mass/Vol] 0.97 mg/dL 0.44-1.03 [facility] Eosinophils Auto (Bld) [#/Vo l]Ordered By: Rodolfo Harley on 08-05-2022 Eosinophils (Bld) [#/Vol] 0.2 10*3/uL 0.0-0.45 [facility] Eosinophils/100 WBC Auto (Bl d)Ordered By: Rodolfo Harley on 08-05-2022 Eosinophils/100 WBC (Bld) 4.9 % . [facility] Erythrocyte distribution wid th Auto (RBC) [Ratio]Ordered By: Rodolfo Harley on 08-05-2022 Erythrocyte distribution width (RBC) [Ratio] 14.5 % 11.9-15.3 [facility] Estimated glomerular filtrat ion rate (GFR) non- AmericanOrdered By: Rodolfo Harley on 08-05-2022 GFR/1.73 sq M.predicted among non-blacks MDRD (S/P/Bld) [Vol rate/Area] 59 mL/Min [facility] FUNGAL CULTUREon 08-05-2022 Fungus (Mycology) Culture Final report Abnormal [facility] Comment on above: Performed By: #### C XFUN ####[facility] [address] [place] [address]Dr. Shahbaz Rogel Fungus Stain Final report Normal [facility] Comment on above: Performed By: #### C XFUN ####[facility] [address] [place] [address]Dr. Shahbaz Rogel Result 1 Comment Abnormal [facility] Comment on above: Result Comment: MILADYS/ Calcofluor preparation: no fungus observed. Performed By: #### C XFUN ####[facility] [address] [place] [address]DrChen Rogel Result Comment: Aspe rgillus versicolor Result 2 Penicillium species Abnormal [facility] Comment on above: Performed By: #### C XFUN ####[facility] [address] [place], [place] [address]Zj. Shahbaz Rogel Globulin Calc (S) [Mass/Vol] Ordered By: Rodolfo Harley on 08-05-2022 Globulin (S) [Mass/Vol] 2.9 g/dL [facility] Hematocrit Auto (Bld) [Volum e fraction]Ordered By: Rodolfo Harley on 08-05-2022 Hematocrit (Bld) [Volume fraction] 43.3 % 34.0-46.4 [facility] Hemoglobin [Mass/volume] in BloodOrdered By: Rodolfo Harley on 08-05-2022 Hemoglobin (Bld) [Mass/Vol] 14.3 g/dL 11.8-15.4 [facility] Laboratory - CoagulationOrde red By: Rodolfo Harley on 08-05-2022 PT Coag (PPP) [Time] 12.4 s 9.0-12.9 [facility] - Hematology and Cell countsOrdered By: Rodolfo Harley on 08-05-2022 Nucleated RBC/100 WBC (Bld) [Ratio] 0.0 % 0-0.5 [facility] Leukocytes [#/volume] in Blo od by Automated countOrdered By: Rodolfo Harley on 08-05-2022 WBC (Bld) [#/Vol] 3.4 10*3/uL 4.5-11.0 [facility] Lymphocytes Auto (Bld) [#/Vo l]Ordered By: Rodolfo Harley on 08-05-2022 Lymphocytes (Bld) [#/Vol] 0.9 10*3/uL 1.00-4.8 [facility] Lymphocytes/100 WBC Auto (Bl d)Ordered By: Rodolfo Harley on 08-05-2022 Lymphocytes/100 WBC (Bld) 27.2 % . [facility] MCH Auto (RBC) [Entitic mass ]Ordered By: Rodolfo Harley on 08-05-2022 MCH (RBC) [Entitic mass] 28.4 pg 24.7-34.3 [facility] MCHC Auto (RBC) [Mass/Vol]Or dered By: Rodolfo Harley on 08-05-2022 MCHC (RBC) [Mass/Vol] 33.1 g/dL 32.0-35.0 [facility] MCV Auto (RBC) [Entitic vol] Ordered By: Rodolfo Harley on 08-05-2022 MCV (RBC) [Entitic vol] 85.9 fL 80-100 [facility] Monocytes Auto (Bld) [#/Vol] Ordered By: Rodolfo Harley on 08-05-2022 Monocytes (Bld) [#/Vol] 0.3 10*3/uL 0.0-0.8 [facility] Monocytes/100 WBC Auto (Bld) Ordered By: Rodolfo Harley on 08-05-2022 Monocytes/100 WBC (Bld) 7.5 % . [facility] Neutrophils Auto (Bld) [#/Vo l]Ordered By: Rodolfo Harley on 08-05-2022 Neutrophils (Bld) [#/Vol] 2.0 10*3/uL 1.8-7.7 [facility] Neutrophils/100 WBC Auto (Bl d)Ordered By: Rodolfo Harley on 08-05-2022 Neutrophils/100 WBC (Bld) 59.9 % . [facility] No Panel InformationOrdered By: Rodolfo Harley on 08-05-2022 Estimated GFR () > 60 mL/Min [facility] Comment on above: GFR estimated refere nce range: According to KDOQI guidelines, <60 ml/min/1.73m2 is sufficient to diagnose a patient with chronic kidney disease. Pharmacy Creatinine Clearance (Chem N/A [facility] Platelet mean volume Auto (B ld) [Entitic vol]Ordered By: Rodolfo Harley on 08-05-2022 Platelet mean volume (Bld) [Entitic vol] 8.1 fL 6.3-10.7 [facility] Platelet poor plasma interna tional normalized ratio (INR) by coagulation assay (relatOrdered By: Rodolfo Harley on 08-05-2022 INR Coag (PPP) [Relative time] 1.1 {INR} [facility] Comment on above: INR Therapeutic [...] 08-05-2022 Platelets (Bld) [#/Vol] 243 10*3/uL 150-450 [facility] Protein [Mass/volume] in Ser um or PlasmaOrdered By: Rodolfo Harley on 08-05-2022 Protein [Mass/Vol] 6.7 g/dL 6.1-7.9 [facility] RBC Auto (Bld) [#/Vol]Ordere d By: Rodolfo Harley on 08-05-2022 RBC (Bld) [#/Vol] 5.04 10*6/uL 3.60-5.00 [facility] Serum or plasma alanine snyder otransferase measurement without P-5'-P (enzymatic activiOrdered By: Rodolfo Harley on 08-05-2022 ALT No additional P-5'-P [Catalytic activity/Vol] 14 U/L 10-60 [facility] Serum or plasma albumin/glob ulin mass ratioOrdered By: Rodolfo Harley on 08-05-2022 Albumin/Globulin [Mass ratio] 1.3 {ratio} [facility] Serum or plasma alkaline sruthi sphatase measurement (enzymatic activity/volume)Ordered By: Rodolfo Harley on 08-05-2022 ALP [Catalytic activity/Vol] 91 U/L 32-92 [facility] Serum or plasma anion gap de terminationOrdered By: Rodolfo Harley on 08-05-2022 Anion gap [Moles/Vol] 14.3 mmol/L 6.0-15.0 [facility] Serum or plasma aspartate am inotransferase measurement (enzymatic activity/volume)Ordered By: Rodolfo Harley on 08-05-2022 AST [Catalytic activity/Vol] 21 U/L 10-42 [facility] Serum or plasma calcium dagoberto urement (mass/volume)Ordered By: Rodolfo Harley on 08-05-2022 Calcium [Mass/Vol] 9.5 mg/dL 8.2-10.2 [facility] Serum or plasma chloride anahy surement (moles/volume)Ordered By: Rodolfo Harley on 08-05-2022 Chloride [Moles/Vol] 102 mmol/L 95-114 [facility] Serum or plasma glucose dagoberto urement (mass/volume)Ordered By: Rodolfo Harley on 08-05-2022 Glucose [Mass/Vol] 76 mg/dL 70-100 [facility] Comment on above: ADA recommended refe rence rangeRandom Glucose Reference Range is dependent on time and content of last meal. Glucose of more than 200 mg/dL in a nonstressed, ambulatory subject supports the diagnosis of Diabetes Mellitus. Serum or plasma potassium me asurement (moles/volume)Ordered By: Rodolfo Harley on 08-05-2022 Potassium [Moles/Vol] 3.8 mmol/L 3.5-5.1 [facility] Serum or plasma sodium measu rement (moles/volume)Ordered By: Rodolfo Harley on 08-05-2022 Sodium [Moles/Vol] 138 mmol/L 136-146 [facility] Serum or plasma total biliru bin measurement (mass/volume)Ordered By: Rodolfo Harley on 08-05-2022 Bilirubin [Mass/Vol] 0.7 mg/dL 0.3-1.2 [facility] Serum or plasma total carbon dioxide measurement (moles/volume)Ordered By: Rodolfo Harley on 08-05-2022 CO2 [Moles/Vol] 25.5 mmol/L 22.0-30.0 [facility] Serum or plasma urea nitroge n measurement (mass/volume)Ordered By: Rodolfo Harley on 08-05-2022 Urea nitrogen [Mass/Vol] 12 mg/dL - [facility] Urine culture routineOrdered By: Rodoflo Harley on 08-05-2022 Bacteria identified Cx Nom (U) 2 Days [facility] XR ANKLE LT MIN 3 Von 2021 XR ANKLE LT MIN 3 V Normal [facility] BNPon 07-06-2022 Natriuretic peptide B (Bld) [Mass/Vol] 843.0 pg/mL Normal <=900.0 [facility] Comment on above: Performed By: #### B WEIGHT LOSS PHYSICIAN, CRP, CMP ####[facility] [address] [place] [address]Dr. Shahbaz Rogel CBC W MANUAL DIFFon 07-06-20 22 ATYPICAL LYMPH # Normal [facility] Comment on above: Performed By: #### C CAIN ####[facility] [address]aken[address] [place] [address]Dr. Shahbaz Rogel ATYPICAL LYMPH % Normal [facility] Comment on above: Performed By: #### C CAIN ####[facility] E[address]kwkfm[address] [place] [address]Dr. Shahbaz Rogel BAND # 0.0 103/ul Normal 0.0-0.3 [facility] Comment on above: Performed By: #### C CAIN ####[facility] Milrfxtsp[address] [place], [place] [address]Dr. Shahbaz Rogel BAND % 0 % Normal 0-5 [facility] Comment on above: Performed By: #### C CAIN ####[facility] Fiynlmxucq[address] [place], [place] [address]Dr. Shahbaz Rogel BASOM # 0.00 103/ul Normal 0.00-0.10 [facility] Comment on above: Performed By: #### C CAIN ####[facility] Rzhmdwnbjz[address] [place], [place] [address]Dr. Shahbaz Rogel BASOM % 0.0 % Critically low 0.2-2.0 [facility] Comment on above: Performed By: #### C CAIN ####[facility] Wyyaqdkivj[address] [place], [place] [address]Dr. Shahbaz Rogel BLAST # Normal [facility] Comment on above: Performed By: #### C CAIN ####[facility] Xsnbqdsvcc[address] [place], [place] [address]Dr. Shahbaz Rogel BLAST % Normal [facility] Comment on above: Performed By: #### C CAIN ####[facility] Pwkeb[address] [place], [place] [address]Dr. Shahbaz Rogel CORRECTED WBC Normal 4.0-11.0 [facility] Comment on above: Performed By: #### C CAIN ####[facility] [address] [place], [place] [address]Ol. Shahbaz Rogel EOS # 0.00 103/ul Normal 0.00-0.70 [facility] Comment on above: Performed By: #### C CAIN ####[facility] [address]yhzoaixoz[address] [place], [place] [address]Du. Shahbaz Rogel EOS% 0.0 % Critically low 0.9-7.0 [facility] Comment on above: Performed By: #### C CAIN ####[facility] [address]mfcrgeeqd34[address] [place] [id number]. Shahbaz Rogel HCT 40.3 % Normal 36.0-48.0 [facility] Comment on above: Performed By: #### C CAIN ####[facility] Aakdrkjlai[address] [place] [id number]. Shahbaz Rogel HGB 12.7 g/dl Normal 12.0-16.0 [facility] Comment on above: Performed By: #### C CAIN ####[facility] Sh[address]prhzwj[address] [place] [id number]. Shahbaz Rogel LYMPHM # 0.41 103/ul Critically low 1.20-3.80 [facility] Comment on above: Performed By: #### C CAIN ####[facility] Jgdyoivxsq86[address] [place] [id number]. Shahbaz Rogel LYMPHM% 7.0 % Critically low 20.5-60.0 [facility] Comment on above: Performed By: #### C CAIN ####[facility] Cibxrapkyv60[address] [place] [id number]. Shahbaz Rogel MCH 28.0 pg Normal 26.7-34.0 [facility] Comment on above: Performed By: #### C CAIN ####[facility] Yxzmwdccih1767 [place] [id number]. Shahbaz Rogel MCHC 31.5 g/dl Normal 29.9-35.2 [facility] Comment on above: Performed By: #### C CAIN ####[facility] Qlemmhwida[address] [place] [address]Dr. Shahbaz Rogel MCV 89.0 fL Normal 81.0-99.0 [facility] Comment on above: Performed By: #### C BCMAN ####[facility] Q[address]ysdkjnz4[address] [place] [phone]. Shahbaz Rogel METAMYELOCYTE # Normal [facility] Comment on above: Performed By: #### C CAIN ####[facility] Cuouoxmkxx[address] [place] [id number]. Shahbaz Rogel METAMYELOCYTE % Normal [facility] Comment on above: Performed By: #### C CAIN ####[facility] Eftiqztwts40[address] [place] [id number]. Shahbaz Rogel MONOM# 0.00 103/ul Critically low 0.30-0.80 [facility] Comment on above: Performed By: #### C CAIN ####[facility] Qqwgvupiov16[address] [place] [address]Dr. Shahbaz Rogel MONOM% 0.0 % Critically low 1.7-12.0 [facility] Comment on above: Performed By: #### C CAIN ####[facility] Wwgjtoixzq3[address] [place] [address]Dr. Shahbaz Rogel MPV 9.8 fL Normal 9.5-13.5 [facility] Comment on above: Performed By: #### C CAIN ####[facility] Aphxdnzafy35[address] [place] [phone]. Shahbaz Rogel MYELOCYTE # Normal [facility] Comment on above: Performed By: #### C CAIN ####[facility] Rzwrwjcrnj075[address] [place] [phone]. Shahbaz Rogel MYELOCYTE % Normal [facility] Comment on above: Performed By: #### C CAIN ####[facility] Uxfuef[address]cp69[address] [place] [phone]. Shahbaz Rogel NRBC Normal [facility] Comment on above: Performed By: #### C CAIN ####[facility] K[address]wewa[address] [place] [address]Dr. Shahbaz Rogel PLT 187 103/ul Normal 150-450 [facility] Comment on above: Performed By: #### C CAIN ####[facility] Xsfkjennao4994 [place] [phone]. Shahbaz Rogel RBC 4.53 106/ul Normal 4.20-5.40 [facility] Comment on above: Performed By: #### C CAIN ####[facility] Hzleloyxzi3922 [place] [phone]. Shahbaz Rogel RDW 13.3 % Normal 11.0-15.0 [facility] Comment on above: Performed By: #### C CAIN ####[facility] Idvktlzgjs5046 [place] [phone]. Shahbaz Rogel SEG # 5.49 103/ul Normal 1.40-6.50 [facility] Comment on above: Performed By: #### C CAIN ####[facility] Unmrxnpqxl7461 [place] [phone]. Shahbaz Rogel SEG % 93.0 % Critically high 43.0-75.0 [facility] Comment on above: Performed By: #### C CAIN ####[facility] [address]reayeguy2[address] [place] [address]Dr. Shahbaz Rogel WBC 5.9 103/ul Normal 4.0-11.0 [facility] Comment on above: Performed By: #### C CAIN ####[facility] Dfubravlhe48[address] [place] [phone]. Shahbaz Juan F CRPon 07-06-2022 CRP [Mass/Vol] mg/L Normal <=1.0 [facility] Comment on above: Performed By: #### B WEIGHT LOSS PHYSICIAN, CRP, CMP ####[facility] W[address]fhngzjf7[address] [place] [phone] Rogel PROF 14(COMP METB)on 022 Albumin [Mass/Vol] 3.4 g/dL Normal 3.4-5.0 [facility] Comment on above: Performed By: #### B WEIGHT LOSS PHYSICIAN, CRP, CMP ####[facility] Goqvmlozvz45[address] [place] [phone]. Lilajarrod Rogel Albumin/Globulin [Mass ratio] 1.0 {ratio} Normal [facility] Comment on above: Performed By: #### B WEIGHT LOSS PHYSICIAN, CRP, CMP ####[facility] Bximejsjjk[address] [place] [address]Dr. Shahbaz Rogel ALP [Catalytic activity/Vol] 92 U/L Normal 46-116 [facility] Comment on above: Performed By: #### B WEIGHT LOSS PHYSICIAN, CRP, CMP ####[facility] Mpjgehxrle[address] [place], [place] [address]Dr. Shahbaz Juan F ALT [Catalytic activity/Vol] 21 U/L Normal 14-59 [facility] Comment on above: Performed By: #### B WEIGHT LOSS PHYSICIAN, CRP, CMP ####[facility] Qpnzdwvgxs7755 [place] [address]Dr. Shahbaz Rogel Anion gap [Moles/Vol] 13.4 mmol/L Normal [facility] Comment on above: Performed By: #### B WEIGHT LOSS PHYSICIAN, CRP, CMP ####[facility] Zufhlxfofz[address] [place], [place] [address]Dr. Shahbaz Rogel AST [Catalytic activity/Vol] 16 U/L Normal 15-37 [facility] Comment on above: Performed By: #### B WEIGHT LOSS PHYSICIAN, CRP, CMP ####[facility] Lyvmycvjns[address] [place], [place] [address]Dr. Shahbaz Rogel Bilirubin [Mass/Vol] 0.2 mg/dL Normal 0.2-1.0 [facility] Comment on above: Performed By: #### B WEIGHT LOSS PHYSICIAN, CRP, CMP ####[facility] Hfmybngibh[address] [place], [place] [address]Dr. Shahbaz Rogel Calcium [Mass/Vol] 9.3 mg/dL Normal 8.5-10.1 [facility] Comment on above: Performed By: #### B WEIGHT LOSS PHYSICIAN, CRP, CMP ####[facility] Vliqjisihm[address] [place], [place] [address]Dr. Shahbaz Rogel Chloride [Moles/Vol] 105 mmol/L Normal 98-107 [facility] Comment on above: Performed By: #### B WEIGHT LOSS PHYSICIAN, CRP, CMP ####[facility] Nhjogjfqtv8561 [place] [address]Dr. Shahbaz Rogel CO2 [Moles/Vol] 23.2 mmol/L Normal 21.0-32.0 [facility] Comment on above: Performed By: #### B WEIGHT LOSS PHYSICIAN, CRP, CMP ####[facility] Idiqtclovr5[address] [place] [address]Dr. Shahbaz Rogel Creatinine [Mass/Vol] 1.23 mg/dL Critically high 0.55-1.02 [facility] Comment on above: Performed By: #### B WEIGHT LOSS PHYSICIAN, CRP, CMP ####[facility] Trjciyogqm[address] [place] [address]Dr. Shahbaz Juan F EGFR-AF SALVADOREAN 55 mL/min/1.73m2 Critically low >=60 [facility] Comment on above: Performed By: #### B WEIGHT LOSS PHYSICIAN, CRP, CMP ####[facility] [address]jgtb[address]fjj[address] [place], [place] [address]Dr. Shahbaz Rogel EGFR-NON AF SALVADOREAN 45 mL/min/1.73m2 Critically low >=60 [facility] Comment on above: Performed By: #### B WEIGHT LOSS PHYSICIAN, CRP, CMP ####[facility] Zryxslgocw[address] [place], [place] [address]Dr. Shahbaz Juan F Globulin (S) [Mass/Vol] 3.3 g/dL Normal [facility] Comment on above: Performed By: #### B WEIGHT LOSS PHYSICIAN, CRP, CMP ####[facility] Iclkfpjfvj9581 [place] [address]Dr. Shahbaz Juan F Glucose [Mass/Vol] 171 mg/dL Critically high 74-106 [facility] Comment on above: Performed By: #### B WEIGHT LOSS PHYSICIAN, CRP, CMP ####[facility] Zngwidzdzy5258 [place] [address]Dr. Shahbaz Juan F Potassium [Moles/Vol] 3.6 mmol/L Normal 3.5-5.1 [facility] Comment on above: Performed By: #### B WEIGHT LOSS PHYSICIAN, CRP, CMP ####[facility] Xllvyycvhn[address] [place], [place] [address]Dr. Shahbaz Juan F Protein [Mass/Vol] 6.7 g/dL Normal 6.4-8.2 [facility] Comment on above: Performed By: #### B WEIGHT LOSS PHYSICIAN, CRP, CMP ####[facility] Hoypuslcja[address] [place] [address]Dr. Shahbaz Rogel Sodium [Moles/Vol] 138 mmol/L Normal 136-145 [facility] Comment on above: Performed By: #### B WEIGHT LOSS PHYSICIAN, CRP, CMP ####[facility] Ecwgmytfvz[address] [place], [place] [address]Dr. Shahbaz Rogel Urea nitrogen [Mass/Vol] 21.0 mg/dL Critically high 7.0-18.0 [facility] Comment on above: Performed By: #### B WEIGHT LOSS PHYSICIAN, CRP, CMP ####[facility] Fquxqvhrzl[address] [place], [place] [address]Dr. Shahbaz Rogel Urea nitrogen/Creatinine [Mass ratio] 17.1 mg/mg Normal [facility] Comment on above: Performed By: #### B WEIGHT LOSS PHYSICIAN, CRP, CMP ####[facility] [address]vcbolivmw[address] [place], [place] [address]Dr. Shahbaz Rogel XR CHEST 2 Von 07-06-2022 XR CHEST 2 V Normal [facility] BNPon 07-05-2022 Natriuretic peptide B (Bld) [Mass/Vol] 83.0 pg/mL Normal <=900.0 [facility] Comment on above: Performed By: #### C RP, CMP, BNP ####[facility] Wrkdkxdxwq[address] [place], [place] [address]Dr. Shahbaz Rogel CBC AUTO DIFFon 07-05-2022 BASO # 0.0 103/ul Normal 0.0-0.1 [facility] Comment on above: Performed By: #### C BC ####[facility] Eykhtwhcfp[address] [place], [place] [address]Dr. Shahbaz Rogel Basophils/100 WBC (Bld) 0.4 % Normal 0.2-2.0 [facility] Comment on above: Performed By: #### C BC ####[facility] Oukhsuqtav[address] [place], [place] [address]Dr. Shahbaz Rogel EO # 0.1 103/ul Normal 0.0-0.7 [facility] Comment on above: Performed By: #### C BC ####[facility] Bkivedrdjh74[address] [place] [address]Dr. Shahbaz Rogel Eosinophils/100 WBC (Bld) 2.9 % Normal 0.9-7.0 [facility] Comment on above: Performed By: #### C BC ####[facility] [address]tmjfjlsh[address] [place], [place] [address]Dr. Shahbaz Rogel Erythrocyte distribution width (RBC) [Ratio] 13.4 % Normal 11.0-15.0 [facility] Comment on above: Performed By: #### C BC ####[facility] Wfrurdrwnu[address] [place], [place] [address]Dr. Shahbaz Rogel Hematocrit (Bld) [Volume fraction] 41.7 % Normal 36.0-48.0 [facility] Comment on above: Performed By: #### C BC ####[facility] Lyogyluxls[address] [place], [place] [address]Dr. Shahbaz Rogel Hemoglobin (Bld) [Mass/Vol] 12.9 g/dL Normal 12.0-16.0 [facility] Comment on above: Performed By: #### C BC ####[facility] R[address]mma[address] [place], [place] [address]Dr. Shahbaz Rogel IG # 0.00 10e3/ul Normal 0.00-0.03 [facility] Comment on above: Performed By: #### C BC ####[facility] Tgfuwzmysz[address] [place], [place] [address]Dr. Shahbaz Rogel IG % 0.0 % Normal 0.0-0.5 [facility] Comment on above: Performed By: #### C BC ####[facility] Wjtbwzpiip[address] [place], [place] [address]Dr. Shahbaz Rogel LYMPH # 1.5 103/ul Normal 1.2-3.8 [facility] Comment on above: Performed By: #### C BC ####[facility] Lnrgqppuuq[address] [place], [place] [address]Dr. Shahbaz Rogel Lymphocytes/100 WBC (Bld) 32.9 % Normal 20.5-60.0 [facility] Comment on above: Performed By: #### C BC ####[facility] Itgckfvrrd4207 [place] [address]Dr. Shahbaz Rogel MANUAL DIFF REQ NO Normal [facility] Comment on above: Performed By: #### C BC ####[facility] Xwvxpjkrso8419 [place] [address]Dr. Shahbaz Rogel MCH (RBC) [Entitic mass] 28.0 pg Normal 26.7-34.0 [facility] Comment on above: Performed By: #### C BC ####[facility] Eemafaxnpm[address] [place], [place] [address]Dr. Shahbaz Rogel MCHC (RBC) [Mass/Vol] 30.9 g/dL Normal 29.9-35.2 [facility] Comment on above: Performed By: #### C BC ####[facility] Nwnisizdxa[address] [place], [place] [address]Dr. Shahbaz Rogel MCV (RBC) [Entitic vol] 90.5 fL Normal 81.0-99.0 [facility] Comment on above: Performed By: #### C BC ####[facility] [address]faqavexx[address] [place], [place] [address]Dr. Shahbaz Rogel MONO # 0.4 103/ul Normal 0.3-0.8 [facility] Comment on above: Performed By: #### C BC ####[facility] Edktcensps[address] [place], [place] [address]Dr. Shahbaz Rogel Monocytes/100 WBC (Bld) 8.0 % Normal 1.7-12.0 [facility] Comment on above: Performed By: #### C BC ####[facility] Siqdoksahw[address] [place], [place] [address]DrChen Rogel NEUT # 2.5 103/ul Normal 1.4-6.5 [facility] Comment on above: Performed By: #### C BC ####[facility] [address]ahkbfsei[address] [place], [place] [address]Dr. Shahbaz Rogel Neutrophils/100 WBC (Bld) 55.8 % Normal 43.0-75.0 [facility] Comment on above: Performed By: #### C BC ####[facility] Dspmfsjfpl7[address] [place] [address]Dr. Shahbaz Rogel Platelet mean volume (Bld) [Entitic vol] 9.7 fL Normal 9.5-13.5 [facility] Comment on above: Performed By: #### C BC ####[facility] Lhxkgkciio[address] [place] [address]Dr. Shahbaz Rogel PLT 158 103/ul Normal 150-450 [facility] Comment on above: Performed By: #### C BC ####[facility] Ilrrsgthbj8486 [place] [id number]. Shahbaz Rogel RBC 4.61 106/ul Normal 4.20-5.40 [facility] Comment on above: Performed By: #### C BC ####[facility] Lblayonixv0622 [place] [address]Dr. Shahbaz Rogel WBC 4.5 103/ul Normal 4.0-11.0 [facility] Comment on above: Performed By: #### C BC ####[facility] Iyftssuior[address] [place] [id number]. Shahbaz Rogel CRPon 07-05-2022 CRP [Mass/Vol] mg/L Normal <=1.0 [facility] Comment on above: Performed By: #### C RP, CMP, BNP ####[facility] Hesxtsiuhs[address] [place] [address]Dr. Shahbaz Rogel ECHO LIMITED STUDYon 022 ECHO LIMITED STUDY Normal [facility] PROF 14(COMP METB)on Albumin [Mass/Vol] 3.2 g/dL Critically low 3.4-5.0 [facility] Comment on above: Performed By: #### C RP, CMP, BNP ####[facility] Nwhavebfre5[address] [place] [address]Dr. Shahbaz Rogel Albumin/Globulin [Mass ratio] 1.0 {ratio} Normal [facility] Comment on above: Performed By: #### C RP, CMP, BNP ####[facility] Ioxwhvqpaz[address]25 [place] [address]Dr. Shahbaz Rogel ALP [Catalytic activity/Vol] 88 U/L Normal 46-116 [facility] Comment on above: Performed By: #### C RP, CMP, BNP ####[facility] Ucqrsrqxkw4[address] [place] [address]Dr. Shahbaz Rogel ALT [Catalytic activity/Vol] 17 U/L Normal 14-59 [facility] Comment on above: Performed By: #### C RP, CMP, BNP ####[facility] Awsofahaia[address] [place], [place] [address]Dr. Shahbaz Rogel Anion gap [Moles/Vol] 12.5 mmol/L Normal [facility] Comment on above: Performed By: #### C RP, CMP, BNP ####[facility] Jxzjiemhfb[address] [place], [place] [address]Dr. Shahbaz Rogel AST [Catalytic activity/Vol] 18 U/L Normal 15-37 [facility] Comment on above: Performed By: #### C RP, CMP, BNP ####[facility] Ybzuyjqfoy[address] [place], [place] [address]Dr. Shahbaz Rogel Bilirubin [Mass/Vol] 0.3 mg/dL Normal 0.2-1.0 [facility] Comment on above: Performed By: #### C RP, CMP, BNP ####[facility] Cmoylkylaf[address] [place], [place] [address]Dr. Shahbaz Rogel Calcium [Mass/Vol] 8.9 mg/dL Normal 8.5-10.1 [facility] Comment on above: Performed By: #### C RP, CMP, BNP ####[facility] Towvunaafw[address] [place] [address]Dr. Shahbaz Rogel Chloride [Moles/Vol] 103 mmol/L Normal 98-107 [facility] Comment on above: Performed By: #### C RP, CMP, BNP ####[facility] Uviwixwjex[address] [place], [place] [address]Dr. Lilajarrod Rogel CO2 [Moles/Vol] 28.1 mmol/L Normal 21.0-32.0 [facility] Comment on above: Performed By: #### C RP, CMP, BNP ####[facility] Szbgeboigl60[address] [place] [address]Dr. Shahbaz Rogel Creatinine [Mass/Vol] 1.24 mg/dL Critically high 0.55-1.02 [facility] Comment on above: Performed By: #### C RP, CMP, BNP ####[facility] Ooyxmmxvbe4[address] [place] [address]Dr. Shahbaz Rogel EGFR-AF SALVADOREAN 54 mL/min/1.73m2 Critically low >=60 [facility] Comment on above: Performed By: #### C RP, CMP, BNP ####[facility] Majinlwrpt[address] [place], [place] [address]Dr. Shahbaz Rogel EGFR-NON AF SALVADOREAN 45 mL/min/1.73m2 Critically low >=60 [facility] Comment on above: Performed By: #### C RP, CMP, BNP ####[facility] Thxwkjoswk[address] [place], [place] [address]Dr. Shahbaz Rogel Globulin (S) [Mass/Vol] 3.1 g/dL Normal [facility] Comment on above: Performed By: #### C RP, CMP, BNP ####[facility] Iecublhrvo[address] [place], [place] [address]Dr. Shahbaz Rogel Glucose [Mass/Vol] 115 mg/dL Critically high 74-106 T [facility] Comment on above: Performed By: #### C RP, CMP, BNP ####[facility] Dudfeazbxq[address] [place], [place] [address]Dr. Shahbaz Rogel Potassium [Moles/Vol] 3.6 mmol/L Normal 3.5-5.1 [facility] Comment on above: Performed By: #### C RP, CMP, BNP ####[facility] Grxclbaoww[address] [place], [place] [address]Dr. Shahbaz Rogel Protein [Mass/Vol] 6.3 g/dL Critically low 6.4-8.2 Th [facility] Comment on above: Performed By: #### C RP, CMP, BNP ####[facility] [address] [place], [place] [id number]. Lilajarrod Rogel Sodium [Moles/Vol] 140 mmol/L Normal 136-145 [facility] Comment on above: Performed By: #### C RP, CMP, BNP ####[facility] [address]emic[address] [place] [address]Dr. Shahbaz Juan F Urea nitrogen [Mass/Vol] 18.0 mg/dL Normal 7.0-18.0 [facility] Comment on above: Performed By: #### C RP, CMP, BNP ####[facility] Eb[address]kgfllv[address] [place] [address]Dr. Shahbaz Rogel Urea nitrogen/Creatinine [Mass ratio] 14.5 mg/mg Normal [facility] Comment on above: Performed By: #### C RP, CMP, BNP ####[facility] Euh[address]zq[address] [place] [address]Dr. Shahbaz Rogel T3, TOTAL (TRIIODOTHYRONINE) on 07-05-2022 T3, TOTAL 95 ng/dL Normal 71-180 [facility] Comment on above: Performed By: #### T 3TOTAL ####[facility] [address] [place] [address]Dr. Lilajarrod Rogel CARDIAC ROSALINA 3-6on 2 CK [Catalytic activity/Vol] 78 U/L Normal 26-192 [facility] Comment on above: Performed By: #### C MREP ####[facility] Cthsrgswvy[address] [place] [address]Dr. Lilajarrod Rogel CK.MB [Mass/Vol] 1.44 ng/mL Normal <=3.60 [facility] Comment on above: Performed By: #### C MREP ####[facility] Yjimxq[address]zh[address] [place] [address]Dr. Shahbaz Juan F HSTROP 9.0 pg/mL Normal 4.0-51.3 [facility] Comment on above: Result Comment: CUT- OFF POINTS HAVE BEEN ESTABLISHED BASED ON THE FOURTH UNIVERSAL DEFINITIONS OF MYOCARDIALINFARCTION. THE UPPER REFERENCE LIMIT (URL) OF TROPONIN, DEFINED THE 99TH PERCENTILE OFcTnI DISTRIBUTION IN A REFERENCE POPULATION, HAS BEEN CONFIRMED THE DECISION THRESHOLDFOR RI DIAGNOSIS. Performed By: #### C MREP ####[facility] P[address] [place], [place] [address]Fp. Shahbaz Rogel CK [Catalytic activity/Vol] 88 U/L Normal 26-192 [facility] Comment on above: Performed By: #### C MREP ####[facility] Whxxzjshhg2775 [place], [place] [address]Mt. Shahbaz Rogel CK.MB [Mass/Vol] 1.38 ng/mL Normal <=3.60 [facility] Comment on above: Performed By: #### C MREP ####[facility] [address]frralyr[address] [place], [place] [address]Ez. Shahbaz Rogel HSTROP 7.0 pg/mL Normal 4.0-51.3 [facility] Comment on above: Result Comment: CUT- OFF POINTS HAVE BEEN ESTABLISHED BASED ON THE FOURTH UNIVERSAL DEFINITIONS OF MYOCARDIALINFARCTION. THE UPPER REFERENCE LIMIT (URL) OF TROPONIN, DEFINED THE 99TH PERCENTILE OFcTnI DISTRIBUTION IN A REFERENCE POPULATION, HAS BEEN CONFIRMED THE DECISION THRESHOLDFOR RI DIAGNOSIS. Performed By: #### C MREP ####[facility] [address]uspif[address] [place], [place] [address]Dk. Shahbaz Rogel CARDIAC ROSALINA ADMITon 022 CK [Catalytic activity/Vol] 87 U/L Normal 26-192 [facility] Comment on above: Performed By: #### C JACKSON, CMADM ####[facility] [address]wtkncq85[address] [place], [place] [address]Nm. Shahbaz Rogel CK.MB [Mass/Vol] 1.80 ng/mL Normal <=3.60 [facility] Comment on above: Performed By: #### C MP, CMADM ####[facility] Ykykvafzwy[address] [place], [place] [address]Md. Shahbaz Rogel HSTROP 7.6 pg/mL Normal 4.0-51.3 [facility] Comment on above: Result Comment: CUT- OFF POINTS HAVE BEEN ESTABLISHED BASED ON THE FOURTH UNIVERSAL DEFINITIONS OF MYOCARDIALINFARCTION. THE UPPER REFERENCE LIMIT (URL) OF TROPONIN, DEFINED THE 99TH PERCENTILE OFcTnI DISTRIBUTION IN A REFERENCE POPULATION, HAS BEEN CONFIRMED THE DECISION THRESHOLDFOR RI DIAGNOSIS. Performed By: #### C JACKSON, CMADM ####[facility] [address] [place] [id number]. Shahbaz Juan F LEN 67 ng/mL Normal 9-82 [facility] Comment on above: Performed By: #### C MP, CMADM ####[facility] Zksrpmbeeo19[address] [place] [phone]. Shahbaz Rogel CBC AUTO DIFFon 07-04-2022 BASO # 0.0 103/ul Normal 0.0-0.1 [facility] Comment on above: Performed By: #### C BC ####[facility] Uevyeaae[address] [place], [place] [address]Dr. Shahbaz Rogel Basophils/100 WBC (Bld) 0.7 % Normal 0.2-2.0 [facility] Comment on above: Performed By: #### C BC ####[facility] Nojqqfbiny[address] [place], [place] [address]Dr. Shahbaz Rogel EO # 0.1 103/ul Normal 0.0-0.7 [facility] Comment on above: Performed By: #### C BC ####[facility] Icrfcmvkgt[address] [place], [place] [address]Dr. Shahbaz Rogel Eosinophils/100 WBC (Bld) 3.4 % Normal 0.9-7.0 [facility] Comment on above: Performed By: #### C BC ####[facility] Shwurzxmrs[address] [place], [place] [address]Dr. Shahbaz Rogel Erythrocyte distribution width (RBC) [Ratio] 13.3 % Normal 11.0-15.0 [facility] Comment on above: Performed By: #### C BC ####[facility] Xjfrfq[address] [place], [place] [address]Dr. Shahbaz Rogel Hematocrit (Bld) [Volume fraction] 42.1 % Normal 36.0-48.0 [facility] Comment on above: Performed By: #### C BC ####[facility] Qvdxnfcieg[address] [place], [place] [address]Dr. Shahbaz Rogel Hemoglobin (Bld) [Mass/Vol] 13.3 g/dL Normal 12.0-16.0 [facility] Comment on above: Performed By: #### C BC ####[facility] Qfitiarcxb4326 [place] [address]Dr. Shahbaz Rogel IG # 0.01 10e3/ul Normal 0.00-0.03 [facility] Comment on above: Performed By: #### C BC ####[facility] Jeemzehpkk2676 [place] [address]DrChen Rogel IG % 0.3 % Normal 0.0-0.5 [facility] Comment on above: Performed By: #### C BC ####[facility] Hnrwvkvulc5[address] [place] [address]DrChen Rogel LYMPH # 1.0 103/ul Critically low 1.2-3.8 [facility] Comment on above: Performed By: #### C BC ####[facility] Gujtimlovo5[address] [place] [address]DrChen Rogel Lymphocytes/100 WBC (Bld) 35.6 % Normal 20.5-60.0 [facility] Comment on above: Performed By: #### C BC ####[facility] Muulbnknqb[address] [place] [address]DrChen Rogel MANUAL DIFF REQ NO Normal [facility] Comment on above: Performed By: #### C BC ####[facility] Fwgkwptlne9415 [place] [address]DrChen Rogel MCH (RBC) [Entitic mass] 27.9 pg Normal 26.7-34.0 [facility] Comment on above: Performed By: #### C BC ####[facility] Esjywenxcg110[address] [place] [phone] Rogel MCHC (RBC) [Mass/Vol] 31.6 g/dL Normal 29.9-35.2 [facility] Comment on above: Performed By: #### C BC ####[facility] Xwmwrdarfm2128 [place] [address]DrChen Rogel MCV (RBC) [Entitic vol] 88.3 fL Normal 81.0-99.0 [facility] Comment on above: Performed By: #### C BC ####[facility] Clhmehbfhh4[address] [place] [address]Dr. Shahbaz Rogel MONO # 0.2 103/ul Critically low 0.3-0.8 [facility] Comment on above: Performed By: #### C BC ####[facility] Sroxcianyc7548 [place] [address]Dr. Shahbaz Juan F Monocytes/100 WBC (Bld) 7.9 % Normal 1.7-12.0 [facility] Comment on above: Performed By: #### C BC ####[facility] Aklyzirzrn[address] [place], [place] [address]Dr. Shahbaz Rogel NEUT # 1.5 103/ul Normal 1.4-6.5 [facility] Comment on above: Performed By: #### C BC ####[facility] Isvutesswt[address] [place], [place] [address]Dr. Shahbaz Juan F Neutrophils/100 WBC (Bld) 52.1 % Normal 43.0-75.0 [facility] Comment on above: Performed By: #### C BC ####[facility] Zpjlqz[address] [place], [place] [address]Dr. Shahbaz Rogel Platelet mean volume (Bld) [Entitic vol] 9.5 fL Normal 9.5-13.5 [facility] Comment on above: Performed By: #### C BC ####[facility] Pyxiravpcz[address] [place], [place] [address]Dr. Shahbaz Rogel PLT 172 103/ul Normal 150-450 [facility] Comment on above: Performed By: #### C BC ####[facility] Kykcghxntk[address] [place], [place] [address]Dr. Shahbaz Juan F RBC 4.77 106/ul Normal 4.20-5.40 [facility] Comment on above: Performed By: #### C BC ####[facility] Fkeawrwyba77[address] [place] [address]Dr. Shahbaz Rogel WBC 2.9 103/ul Critically low 4.0-11.0 [facility] Comment on above: Performed By: #### C BC ####[facility] Eecwhypwgy[address] [place] [id number]. Shahbaz Rogel CELL COUNT BODY FLUIDon BASOS Normal [facility] Comment on above: Performed By: #### B FCC ####[facility] Ncufkvvler4[address] [place] [address]Dr. Shahbaz Rogle Eosinophils/100 WBC (Bld) 4 % Normal [facility] Comment on above: Performed By: #### B FCC ####[facility] Zscxdirlps[address] [place], [place] [address]Dr. Shahbaz Rogel Lymphocytes/100 WBC (Bld) 12 % Normal [facility] Comment on above: Performed By: #### B FCC ####[facility] Howtvpzjal[address] [place], [place] [address]Dr. Shahbaz Rogel Monocytes/100 WBC (Bld) 4 % Normal [facility] Comment on above: Performed By: #### B FCC ####[facility] Xosfancgrm[address] [place], [place] [address]Dr. Shahbaz Rogel RBC 67 cubic mm Normal [facility] Comment on above: Performed By: #### B FCC ####[facility] Ucmuaaoric[address] [place], [place] [address]Dr. Shahbaz Rogel SEGS 80 % Normal [facility] Comment on above: Performed By: #### B FCC ####[facility] [address]cqtrqbjaf[address] [place], [place] [address]Dr. Shahbaz Rogel WBC BODY FLUID 223 cubic mm Normal [facility] Comment on above: Performed By: #### B FCC ####[facility] Iwrgcrpwpd[address] [place], [place] [address]Dr. Shahbaz Rogel CULTURE OTHERon 07-04-2022 CULTURE OTHER Culture Observations : NO GROWTH AT 48 HOURS. Normal [facility] Comment on above: Performed By: #### O THCX ####[facility] [address]zbuieqvip[address] [place], [place] [address]Dr. Shahbaz Rogel CYTOLOGYon 07-04-2022 SENT TO REF LAB 07/04/22 Normal [facility] Comment on above: Performed By: #### C YTO ####[facility] Ydikpjkrxp[address] [place] [address]Dr. Shahbaz Rogel Covid-19 PCR (CVDTB)on SARS-CoV-2 (COVID-19) RNA PAVAN+probe Ql (Unsp spec) Not detected Normal NOT DETECTED [facility] Comment on above: Result Comment: [...] for this test is supported by the [employer] Handicapper of Health and Human Service's declaration that [...] be used). Performed By: #### C VDTBH ####[facility] Hzcwfhnbau[address] [place], [place] [address]Dr. Shahbaz Rogel GRAM STAINon 07-04-2022 COMMENTS NO ORGANISMS OBSERVED Normal [facility] Comment on above: Performed By: #### G STAIN ####[facility] Izmtjwpzxa[address] [place] [address]Dr. Shahbaz Rogel DIPHTHEROIDS Normal [facility] Comment on above: Performed By: #### G STAIN ####[facility] Hupiwlktte36[address] [place] [address]Dr. Shahbaz Rogel EPITHELIALS Normal [facility] Comment on above: Performed By: #### G STAIN ####[facility] Rtuxkokfda44[address] [place] [address]Dr. Shahbaz Rogel FUNGAL ELEMENTS Normal [facility] Comment on above: Performed By: #### G STAIN ####[facility] Bvydyvpldp9013 [place] [phone]. Shahbaz Rogel GRAM NEG BACILLI Normal [facility] Comment on above: Performed By: #### G STAIN ####[facility] Gsxbwfefpw9766 [place] [address]Dr. Shahbaz Rogel GRAM NEG DIPPLOCOCCI Normal [facility] Comment on above: Performed By: #### G STAIN ####[facility] Xtplxpvnrh6238 [place] [address]Dr. Shahbaz Rogel GRAM POS BACILLI Normal [facility] Comment on above: Performed By: #### G STAIN ####[facility] Mnhvcjjair[address] [place], [place] [address]Dr. Shahbaz Rogel GRAM POSITIVE COCCI Normal [facility] Comment on above: Performed By: #### G STAIN ####[facility] [address]zytqwwopi[address] [place], [place] [address]Dr. Shahbaz Rogel GRAM STAIN SOURCE Rt Lower Lobe Bronch ial Washing Normal [facility] Comment on above: Performed By: #### G STAIN ####[facility] Ckbhxgdrzx[address] [place], [place] [address]Dr. Shahbaz Rogel GS_DIPTH Normal [facility] Comment on above: Performed By: #### G STAIN ####[facility] Mxyekepxcd[address] [place], [place] [address]Dr. Shahbaz Rogel WBC RARE Normal [facility] Comment on above: Performed By: #### G STAIN ####[facility] Hponzohalj[address] [place], [place] [address]Dr. Shahbaz Rogel PROF 14(COMP METB)on 022 Albumin [Mass/Vol] 3.6 g/dL Normal 3.4-5.0 [facility] Comment on above: Performed By: #### CINDY Alonzo MP ####[facility] Rtbinemjsk[address] [place], [place] [address]Dr. Shahbaz Rogel Albumin/Globulin [Mass ratio] 1.1 {ratio} Normal [facility] Comment on above: Performed By: #### CINDY Alonzo MP ####[facility] Rufhqdrdgc06[address] [place] [address]Dr. Shahbaz Rogel ALP [Catalytic activity/Vol] 102 U/L Normal 46-116 [facility] Comment on above: Performed By: #### C MP, CMADM ####[facility] Muzwvsbowl8258 [place] [address]Dr. Shahbaz Rogel ALT [Catalytic activity/Vol] 19 U/L Normal 14-59 [facility] Comment on above: Performed By: #### C MP, CMADM ####[facility] Vfswifyfyw3737 [place] [address]Dr. Shahbaz Rogel Anion gap [Moles/Vol] 9.5 mmol/L Normal [facility] Comment on above: Performed By: #### C JACKSON, CMADM ####[facility] Jcyfrhqlld[address] [place], [place] [address]Dr. Shahbaz Rogel AST [Catalytic activity/Vol] 19 U/L Normal 15-37 [facility] Comment on above: Performed By: #### C JACKSON, CMADM ####[facility] Eardycxbxr[address] [place], [place] [address]Dr. Shahbaz Rogel Bilirubin [Mass/Vol] 0.3 mg/dL Normal 0.2-1.0 [facility] Comment on above: Performed By: #### C JACKSON, CMADM ####[facility] Utxzpycclr[address] [place], [place] [address]Dr. Shahbaz Rogel Calcium [Mass/Vol] 8.8 mg/dL Normal 8.5-10.1 [facility] Comment on above: Performed By: #### C JACKSON, CMADM ####[facility] Nfnfyjryjf[address] [place], [place] [address]Dr. Shahbaz Rogel Chloride [Moles/Vol] 107 mmol/L Normal 98-107 [facility] Comment on above: Performed By: #### C JACKSON, CMADM ####[facility] Yscseqvhin[address] [place], [place] [address]Dr. Shahbaz Rogel CO2 [Moles/Vol] 29.5 mmol/L Normal 21.0-32.0 [facility] Comment on above: Performed By: #### C JACKSON, CMADM ####[facility] Trfxfgkpzn1652 [place] [phone]. Shahbaz Rogel Creatinine [Mass/Vol] 0.97 mg/dL Normal 0.55-1.02 [facility] Comment on above: Performed By: #### C MP, CMADM ####[facility] Gyzvhznivi1192 [place] [address]Dr. Shahbaz Rogel EGFR-AF SALVADOREAN >60 Normal >=60 [facility] Comment on above: Performed By: #### C JACKSON, CMADM ####[facility] Mzhcgpmtfz2612 [place] [id number]. Shahbaz Rogel EGFR-NON AF SALVADOREAN 59 mL/min/1.73m2 Critically low >=60 [facility] Comment on above: Performed By: #### C JACKSON, CMADM ####[facility] Zinymzxwzs5[address] [place] [address]Dr. Shahbaz Rogel Globulin (S) [Mass/Vol] 3.2 g/dL Normal [facility] Comment on above: Performed By: #### C JACKSON, CMADM ####[facility] Ajkskxatxa0123 [place] [address]Dr. Shahbaz Rogel Glucose [Mass/Vol] 89 mg/dL Normal 74-106 [facility] Comment on above: Performed By: #### C JACKSON, CMADM ####[facility] Wkilyydgrl3135 [place] [address]Dr. Shahbaz Rogel Potassium [Moles/Vol] 4.0 mmol/L Normal 3.5-5.1 [facility] Comment on above: Performed By: #### C JACKSON, CMADM ####[facility] Uoqlxwlfjn[address] [place] [address]Dr. Shahbaz Rogel Protein [Mass/Vol] 6.8 g/dL Normal 6.4-8.2 [facility] Comment on above: Performed By: #### C JACKSON, CMADM ####[facility] Lxzrssryba64[address] [place] [address]Dr. Sahhbaz Rogel Sodium [Moles/Vol] 142 mmol/L Normal 136-145 [facility] Comment on above: Performed By: #### C JACKSON, CMADM ####[facility] Lwgldayusp2630 [place] [phone]. Shahbaz Rogel Urea nitrogen [Mass/Vol] 11.0 mg/dL Normal 7.0-18.0 [facility] Comment on above: Performed By: #### C MP, CMADM ####[facility] [address]nb[address] [place], [place] [address]Dr. Shahbaz Rogel Urea nitrogen/Creatinine [Mass ratio] 11.3 mg/mg Normal [facility] Comment on above: Performed By: #### C JACKSON, CMADM ####[facility] Bhrtzrebuq[address] [place], [place] [address]Dr. Shahbaz Rogel T4on 07-04-2022 T4 [Mass/Vol] 4.70 ug/dL Critically low 4.80-13.90 [facility] Comment on above: Performed By: #### T SH, T4 ####[facility] Aclvazlike[address] [place], [place] [address]Dr. Shahbaz Rogel TSHon 07-04-2022 TSH 0.359 uIU/mL Normal 0.358-3.74 0 [facility] Comment on above: Performed By: #### T SH, T4 ####[facility] [address]uzk[address]vwv[address] [place], [place] [address]Dr. Shahbaz Rogel XR CHEST 1 Von 07-04-2022 XR CHEST 1 V Normal [facility] XR CHEST 1 V Normal [facility] CHLAMYDIA PNEUMONIAE IgG IgM IgAon 06-27-2022 Chlamydia pneumoniae IgA <1:16 Normal Neg:<1:16 [facility] Comment on above: Performed By: #### C HLMPNE ####[facility] [address]gegmpbsqm[address] [place], [place] [address]Dr. jarrod Rogel Chlamydia pneumoniae IgG <1:16 Normal Neg:<1:16 [facility] Comment on above: Performed By: #### C HLMPNE ####[facility] [address]tugjegmwq[address] [place], [place] [address]Dr. Shahbaz Rogel Chlamydia pneumoniae IgM <1:10 Normal Neg:<1:10 [facility] Comment on above: Performed By: #### C HLMPNE ####[facility] Splwezsvkt[address] [place], [place] [address]Id. Shahbaz Rogel Test Information: Comment Normal [facility] Comment on above: Result Comment: This test was developed and its performance characteristics determinedby [facility]. It has not been cleared or approved by the Food and DrugAdministration. The FDA has determined that such clearance or approvalis not necessary. Results of this test are for investigationalpurposes only. The result should not be used as a diagnosticprocedure without confirmation of the diagnosis by another medicallyestablished diagnostic product or procedure. Performed By: #### C HLMPNE ####[facility] Dhnbjjwmau5[address] [place] [id number]. Shahbaz Rogel Covid-19 PCR (CVDTB)on 06-03 SARS-CoV-2 (COVID-19) RNA PAVAN+probe Ql (Unsp spec) Not detected Normal NOT DETECTED [facility] Comment on above: Result Comment: This test is not yet approved or cleared by the [place] FDA. When there are no FDA-approved or cleared tests available, and other criteria are met, FDA can make tests available under an emergency access mechanism called an Emergency Use Authorization (EUA). The EUA for this test is supported by the [place] of Health and Human Service's (HHS's) declaration [...] with SARS-CoV-2. Performed By: #### C VDTBH ####[facility] T[address]xt[address]uv[address] [place], [place] [address]Fr. Shahbaz Rogel CYCLIC CITRULLINATED PEPTIDE AB (CCP)on 06-25-2022 CCP Antibodies IgG/IgA 13 units Normal 0-19 [facility] Comment on above: Result Comment: Nega tive <20 Weak positive 20 - 39 Moderate positive 40 - 59 Strong positive >59 Performed By: #### C CPAB ####[facility] Ummkzgxjit[address] [place] [address]Dr. Shahbaz Rogel ANTI NEUTROPHIL CYTOPLASMIC AB (ANCA) PRon 06-24-2022 Anti-MPO Antibodies <0.2 Normal 0.0-0.9 [facility] Comment on above: Result Comment: Perf ormed at: BN Performed By: #### A NCAP ####[facility] [address]ibvdwkxoe[address] [place] [address]Dr. Shahbaz Rogel Anti-PR3 Antibodies 5.0 units Critically high 0.0-0.9 [facility] Comment on above: Result Comment: Perf ormed at: BN Performed By: #### A NCAP ####[facility] Orcvyyzlqx75[address] [place] [address]Dr. Lilajarrdo Rogel Atypical pANCA <1:20 Normal Neg:<1:20 [facility] Comment on above: Result Comment: The atypical pANCA pattern has been observed in a significantpercentage of patients with ulcerative colitis, primary sclerosingcholangitis and autoimmune hepatitis.Performed at: CB Performed By: #### A NCAP ####[facility] Cdroulzoke[address] [place] [address]Dr. Shahbaz Rogel Cytoplasmic (C-ANCA) <1:20 Normal Neg:<1:20 [facility] Comment on above: Result Comment: Perf ormed at: CB Performed By: #### A NCAP ####[facility] Tbwecnfimt[address] [place], [place] [address]Dr. Shahbaz Rogel Perinuclear (P-ANCA) 1:80 Critically high Neg:<1:20 [facility] Comment on above: Result Comment: The presence of positive fluorescence exhibiting P-ANCA or C-ANCApatterns alone is not specific for the diagnosis of Ada'sGranulomatosis (WG) or microscopic polyangiitis. Decisions abouttreatment should not be based solely on ANCA IFA results. TheInternational ANCA Group Consensus recommends follow up testing ofpositive sera with both UT-3 and MPO-ANCA enzyme immunoassays. Asmany as 5% serum samples are positive only by EIA.Ref. AM J Clin Pathol 1999;111:507-513.Performed at: CB Performed By: #### A NCAP ####[facility] [address]hwc[address] [place] [address]Dr. Shahbaz Rogel ANTIGLOMERULAR BASEMENT MEMB ANTOINE ABSon 06-24-2022 Anti-GBM Antibodies <0.2 Normal 0.0-0.9 [facility] Comment on above: Performed By: #### A GBM ####[facility] [address]rivzynhk[address] [place] [address]Dr. Shahbaz Rogel SHAHANA EIA W/REFLEX 5 BIOMARKER Son 06-23-2022 SHAHANA Direct Negative Normal Negative [facility] Comment on above: Performed By: #### A NARF ####[facility] Ymvqwlwade[address] [place] [address]Dr. Shahbaz Rogel ANTISCLERODERMA ABon 022 Antiscleroderma-70 Antibodies <0.2 Normal 0.0-0.9 [facility] Comment on above: Performed By: #### A NSCLER ####[facility] Rpybitsyip[address] [place] [address]Dr. Shahbaz Rogel RHEUMATOID FACTORon 06-23-20 RA Latex Turbid. <10.0 Normal <14.0 [facility] Comment on above: Performed By: #### R F ####[facility] Wxmxpmpgyt99[address] [place], [place] [address]Dr. Shahbaz Rogel CBC AUTO DIFFon 06-22-2022 BASO # 0.0 103/ul Normal 0.0-0.1 [facility] Comment on above: Performed By: #### C BC ####[facility] Igcpkmgvhc68[address] [place] [address]Dr. Shahbaz Rogel Basophils/100 WBC (Bld) 0.5 % Normal 0.2-2.0 [facility] Comment on above: Performed By: #### C BC ####[facility] Fudixvxycm70[address] [place] [address]Dr. Shahbaz Rogel EO # 0.1 103/ul Normal 0.0-0.7 [facility] Comment on above: Performed By: #### C BC ####[facility] Phojgxgyiy6307 [place] [address]Dr. Shahbaz Rogel Eosinophils/100 WBC (Bld) 3.4 % Normal 0.9-7.0 [facility] Comment on above: Performed By: #### C BC ####[facility] Fxjvnkhakw030[address] [place], [place] [address]Dr. Shahbaz Rogel Erythrocyte distribution width (RBC) [Ratio] 13.2 % Normal 11.0-15.0 [facility] Comment on above: Performed By: #### C BC ####[facility] Hgjdgdvvua71[address] [place], [place] [address]Dr. Shahbaz Rogel Hematocrit (Bld) [Volume fraction] 45.6 % Normal 36.0-48.0 [facility] Comment on above: Performed By: #### C BC ####[facility] Qtyfrgxpbl33[address] [place], [place] [address]Dr. Shahbaz Rogel Hemoglobin (Bld) [Mass/Vol] 14.7 g/dL Normal 12.0-16.0 [facility] Comment on above: Performed By: #### C BC ####[facility] Myoipcwacl46[address] [place], [place] [address]Dr. Shahbaz Rogel IG # 0.01 10e3/ul Normal 0.00-0.03 [facility] Comment on above: Performed By: #### C BC ####[facility] Fppemyxytp034[address] [place], [place] [address]Dr. Shahbaz Rogel IG % 0.3 % Normal 0.0-0.5 [facility] Comment on above: Performed By: #### C BC ####[facility] Deajjyifip[address] [place], [place] [address]DrChen Shahbaz Rogel LYMPH # 1.0 103/ul Critically low 1.2-3.8 [facility] Comment on above: Performed By: #### C BC ####[facility] Mfkapmojyt7565[address] [place], [place] [address]Dr. Shahbaz Rogel Lymphocytes/100 WBC (Bld) 25.7 % Normal 20.5-60.0 [facility] Comment on above: Performed By: #### C BC ####[facility] Kpqezfputj[address] [place] [address]Dr. Shahbaz Rogel MANUAL DIFF REQ NO Normal [facility] Comment on above: Performed By: #### C BC ####[facility] Nnmbvnfjxu2318 [place] [address]Dr. Shahbaz Rogel MCH (RBC) [Entitic mass] 28.1 pg Normal 26.7-34.0 [facility] Comment on above: Performed By: #### C BC ####[facility] Jxmloqmvis5[address] [place], [place] [address]Dr. Shahbaz Rogel MCHC (RBC) [Mass/Vol] 32.2 g/dL Normal 29.9-35.2 [facility] Comment on above: Performed By: #### C BC ####[facility] Wzhrsbeuay196[address] [place], [place] [address]Dr. Shahbaz Rogel MCV (RBC) [Entitic vol] 87.2 fL Normal 81.0-99.0 [facility] Comment on above: Performed By: #### C BC ####[facility] Yaohfghshw37[address] [place], [place] [address]DrChen Rogel MONO # 0.2 103/ul Critically low 0.3-0.8 [facility] Comment on above: Performed By: #### C BC ####[facility] Crfbglnkym5678[address] [place], [place] [address]Dr. Shahbaz Rogel Monocytes/100 WBC (Bld) 6.0 % Normal 1.7-12.0 [facility] Comment on above: Performed By: #### C BC ####[facility] Tuxpxzyvku9178[address] [place], [place] [address]DrChen Rogel NEUT # 2.5 103/ul Normal 1.4-6.5 [facility] Comment on above: Performed By: #### C BC ####[facility] Vbcqztnhzv4210[address] [place], [place] [address]DrChen Rogel Neutrophils/100 WBC (Bld) 64.1 % Normal 43.0-75.0 [facility] Comment on above: Performed By: #### C BC ####[facility] Hgafilsjne3755 [place] [id number]. Shahbaz Rogel Platelet mean volume (Bld) [Entitic vol] 9.4 fL Critically low 9.5-13.5 [facility] Comment on above: Performed By: #### C BC ####[facility] Tukztntyne5985 [place] [id number]. Shahbaz Rogel PLT 212 103/ul Normal 150-450 [facility] Comment on above: Performed By: #### C BC ####[facility] Xedkwmyvro4537 [place] [id number]. Shahbaz Rogel RBC 5.23 106/ul Normal 4.20-5.40 [facility] Comment on above: Performed By: #### C BC ####[facility] Rdiodjvcxk3538 [place] [address]DrChen Rogel WBC 3.9 103/ul Critically low 4.0-11.0 [facility] Comment on above: Performed By: #### C BC ####[facility] Gvjnihoskt0014 [place] [phone] Rogel PROF 14(COMP METB)on 022 Albumin [Mass/Vol] 4.1 g/dL Normal 3.4-5.0 [facility] Comment on above: Performed By: #### C MP ####[facility] Qvuflpmijd2021 [place] [phone] Rogel Albumin/Globulin [Mass ratio] 1.1 {ratio} Normal [facility] Comment on above: Performed By: #### C MP ####[facility] Rqhmxzzqol6930 [place] [phone] Rogel ALP [Catalytic activity/Vol] 133 U/L Critically high 46-116 [facility] Comment on above: Performed By: #### C MP ####[facility] Ciygkgvdhg7817 [place] [phone] Rogel ALT [Catalytic activity/Vol] 29 U/L Normal 14-59 [facility] Comment on above: Performed By: #### C MP ####[facility] Otoainxepy0632 [place] [phone]. Shahbaz Rogel Anion gap [Moles/Vol] 10.9 mmol/L Normal Th e [facility] Comment on above: Performed By: #### C MP ####[facility] Gdgzokwgnf7956 [place] [phone]. Shahbaz Rogel AST [Catalytic activity/Vol] 23 U/L Normal 15-37 [facility] Comment on above: Performed By: #### C MP ####[facility] Plpqdaijye8699 [place] [phone]. Shahbaz Rogel Bilirubin [Mass/Vol] 0.3 mg/dL Normal 0.2-1.0 [facility] Comment on above: Performed By: #### C MP ####[facility] Cdtcwwdaau5[address] [place], [place] [address]Dr. Shhabaz Rogel Calcium [Mass/Vol] 9.1 mg/dL Normal 8.5-10.1 [facility] Comment on above: Performed By: #### C MP ####[facility] Wciejdqeyu086[address] [place], [place] [address]Dr. Shahbaz Juan F Chloride [Moles/Vol] 103 mmol/L Normal 98-107 [facility] Comment on above: Performed By: #### C MP ####[facility] Uisfxwppnz2657[address] [place], [place] [address]Dr. Shahbaz Rogel CO2 [Moles/Vol] 30.8 mmol/L Normal 21.0-32.0 [facility] Comment on above: Performed By: #### C MP ####[facility] Kxstjbwwwl0165 [place] [phone]. Shahbaz Rogel Creatinine [Mass/Vol] 1.02 mg/dL Normal 0.55-1.02 [facility] Comment on above: Performed By: #### C MP ####[facility] Htrogsjnkr9765 [place] [address]Dr. Shahbaz Juan F EGFR-AF SALVADOREAN >60 Normal >=60 [facility] Comment on above: Performed By: #### C MP ####[facility] Bzathclmed0873 [place] [phone]. Shahbaz Rogel EGFR-NON AF SALVADOREAN 56 mL/min/1.73m2 Critically low >=60 [facility] Comment on above: Performed By: #### C MP ####[facility] Pgahsdfpvf5155 [place] [phone]. Shahbaz Rogel Globulin (S) [Mass/Vol] 3.7 g/dL Normal [facility] Comment on above: Performed By: #### C MP ####[facility] Nsetoapomc7243 [place] [phone]. Shahbaz Rogel Glucose [Mass/Vol] 80 mg/dL Normal 74-106 [facility] Comment on above: Performed By: #### C MP ####[facility] Btktdujkmj5815 [place] [phone]. Shahbaz Rogel Potassium [Moles/Vol] 3.7 mmol/L Normal 3.5-5.1 [facility] Comment on above: Performed By: #### C MP ####[facility] Izdejzilym4474 [place] [phone]. Shahbaz Rogel Protein [Mass/Vol] 7.8 g/dL Normal 6.4-8.2 [facility] Comment on above: Performed By: #### C MP ####[facility] Wfcfwwdcdy17[address] [place], [place] [address]Dr. Shahbaz Rogel Sodium [Moles/Vol] 141 mmol/L Normal 136-145 [facility] Comment on above: Performed By: #### C MP ####[facility] Ekcpallwli98[address] [place], [place] [address]Dr. Shahbaz Rogel Urea nitrogen [Mass/Vol] 10.0 mg/dL Normal 7.0-18.0 [facility] Comment on above: Performed By: #### C MP ####[facility] Txsvxkzhxj8[address] [place], [place] [address]Dr. Shahbaz Rogel Urea nitrogen/Creatinine [Mass ratio] 9.8 mg/mg Normal [facility] Comment on above: Performed By: #### C MP ####[facility] Tyywfcbmkf2910 [place] [address]Dr. Shahbaz Rogel SED RATE WESTERGRENon 2021 SED RATE 17 mm/hr Normal <=30 [facility] Comment on above: Performed By: #### S EDR ####[facility] Hwdpbvkqwe30[address] [place] [address] Shah[address] Rog[address] CT CHEST HI RESOLUTIONon CT CHEST HI RESOLUTION Normal [facility] XR ANKLE RT MIN 3 VIEWSon XR ANKLE RT MIN 3 VIEWS Normal [facility] CT CHEST WO CONon 03-03-2022 CT CHEST WO CON Normal [facility] CT CSPINE WO CONon CT CSPINE WO CON Normal [facility] XR CHEST 2 Von 03-03-2022 XR CHEST 2 V Normal [facility] XR STERNUM MIN 2 VIEWSon XR STERNUM MIN 2 VIEWS Normal [facility] CT HEAD WO CONon 03-02-2022 CT HEAD WO CON Normal [facility] CBC AUTO DIFFon 01-21-2022 BASO # 0.0 103/ul Normal 0.0-0.1 [facility] Comment on above: Performed By: #### C BC ####[facility] Xizvjlfkxb6517 [place] [address]Dr. Shahbaz Rogel Basophils/100 WBC (Bld) 0.0 % Critically low 0.2-2.0 [facility] Comment on above: Performed By: #### C BC ####[facility] Ipauestano7551 [place] [address]Dr. Shahbaz Rogel EO # 0.0 103/ul Normal 0.0-0.7 [facility] Comment on above: Performed By: #### C BC ####[facility] Ntqctdgugg5341 [place] [address]Dr. Shahbaz Rogel Eosinophils/100 WBC (Bld) 0.0 % Critically low 0.9-7.0 [facility] Comment on above: Performed By: #### C BC ####[facility] Qyqpfikxud8039 [place] [address]Dr. Lilajarrod Rogel Erythrocyte distribution width (RBC) [Ratio] 14.2 % Normal 11.0-15.0 [facility] Comment on above: Performed By: #### C BC ####[facility] Cvpqnowsub[address] [place], [place] [address]Dr. Lilajarrod Rogel Hematocrit (Bld) [Volume fraction] 38.9 % Normal 36.0-48.0 [facility] Comment on above: Performed By: #### C BC ####[facility] Tdqeuvpgkq366[address] [place], [place] [address]Dr. Lilajarrod Rogel Hemoglobin (Bld) [Mass/Vol] 11.8 g/dL Critically low 12.0-16.0 [facility] Comment on above: Performed By: #### C BC ####[facility] Ihbooyprcf04[address] [place], [place] [address]Dr. Shahbaz Rogel IG # 0.03 10e3/ul Normal 0.00-0.03 [facility] Comment on above: Performed By: #### C BC ####[facility] Wznetngokk03[address] [place], [place] [address]Dr. Shahbaz Rogel IG % 0.4 % Normal 0.0-0.5 [facility] Comment on above: Performed By: #### C BC ####[facility] Cetentdnen95[address] [place], [place] [address]Dr. Shahbaz Rogel LYMPH # 0.8 103/ul Critically low 1.2-3.8 [facility] Comment on above: Performed By: #### C BC ####[facility] Uqflwyzmej14[address] [place], [place] [address]Dr. Shahbaz Rogel Lymphocytes/100 WBC (Bld) 10.3 % Critically low 20.5-60.0 [facility] Comment on above: Performed By: #### C BC ####[facility] Knhmlvnwdl25[address] [place], [place] [address]Dr. Shahbaz Rogel MANUAL DIFF REQ NO Normal [facility] Comment on above: Performed By: #### C BC ####[facility] Atqpgtdmsg7068[address] [place], [place] [address]Dr. Shahbaz Rogel MCH (RBC) [Entitic mass] 27.1 pg Normal 26.7-34.0 [facility] Comment on above: Performed By: #### C BC ####[facility] Gtzmvzgalp0391 [place] [address]Dr. Shahbaz Rogel MCHC (RBC) [Mass/Vol] 30.3 g/dL Normal 29.9-35.2 [facility] Comment on above: Performed By: #### C BC ####[facility] Cgwwtssvxa4902 [place] [address]Dr. Shahbaz Rogel MCV (RBC) [Entitic vol] 89.2 fL Normal 81.0-99.0 [facility] Comment on above: Performed By: #### C BC ####[facility] Nshnfhtxkm1415 [place] [address]Dr. Shahbaz Juan F MONO # 0.4 103/ul Normal 0.3-0.8 [facility] Comment on above: Performed By: #### C BC ####[facility] Iysdogygee0812 [place] [address]Dr. Shahbaz Juan F Monocytes/100 WBC (Bld) 4.7 % Normal 1.7-12.0 [facility] Comment on above: Performed By: #### C BC ####[facility] Rnhvefdblv5445 [place] [address]Dr. Shahbaz Rogel NEUT # 6.6 103/ul Critically high 1.4-6.5 [facility] Comment on above: Performed By: #### C BC ####[facility] Qzwlywyaqh3373 [place] [address]Dr. Shahbaz Juan F Neutrophils/100 WBC (Bld) 84.6 % Critically high 43.0-75.0 [facility] Comment on above: Performed By: #### C BC ####[facility] Hqouofjqip1563 [place] [address]Dr. Shahbaz Juan F Platelet mean volume (Bld) [Entitic vol] 10.0 fL Normal 9.5-13.5 [facility] Comment on above: Performed By: #### C BC ####[facility] Twddypnprs0225 [place] [address]Dr. Shahbaz Rogel PLT 165 103/ul Normal 150-450 [facility] Comment on above: Performed By: #### C BC ####[facility] Yfdrehgtsz587[address] [place], [place] [address]Dr. Shahbaz Rogel RBC 4.36 106/ul Normal 4.20-5.40 [facility] Comment on above: Performed By: #### C BC ####[facility] Thsxlccllt65[address] [place], [place] [address]Dr. Shahbaz Rogel WBC 7.8 103/ul Normal 4.0-11.0 [facility] Comment on above: Performed By: #### C BC ####[facility] Egzmnqmuuu050[address] [place], [place] [address]Dr. Shahbaz Rogel ER URINE PROFILEon 2 Bilirubin Ql (U) Negative Normal NEGATIVE [facility] Comment on above: Performed By: #### E RUR ####[facility] Csfzzknqgu587[address] [place], [place] [address]Dr. Shahbaz Juan F Clarity (U) CLEAR Normal CLEAR [facility] Comment on above: Performed By: #### E RUR ####[facility] Xehdmcevtn67[address] [place], [place] [address]Dr. Shahbaz Juan F Color (U) LT. YELLOW Normal YELLOW [facility] Comment on above: Performed By: #### E RUR ####[facility] Diemhkrumc5[address] [place], [place] [address]Dr. Shahbaz Rogel ERUAHD A micrscopic examina tion will be performed if indicated. Normal [facility] Comment on above: Performed By: #### E RUR ####[facility] Ecaqbxzzcx4847[address] [place], [place] [address]Dr. Shahbaz Rogel Glucose Ql (U) Negative Normal NEGATIVE [facility] Comment on above: Performed By: #### E RUR ####[facility] Zfycqyexcs004[address] [place], [place] [address]Dr. Shahbaz Rogel Hemoglobin Ql (U) Negative Normal NEGATIVE [facility] Comment on above: Performed By: #### E RUR ####[facility] Fznhcvpier2321 [place] [address]Dr. Shahbaz Rogel Ketones Ql (U) Negative Normal NEGATIVE [facility] Comment on above: Performed By: #### E RUR ####[facility] Mcqnqtrfgb5542 [place] [address]Dr. Shahbaz Rogel LEUKOCYTES Negative Normal NEGATIVE [facility] Comment on above: Performed By: #### E RUR ####[facility] Shoujjpcfa039[address] [place], [place] [address]Dr. Shahbaz Rogel Nitrite Ql (U) Negative Normal NEGATIVE [facility] Comment on above: Performed By: #### E RUR ####[facility] Tbqvqbsbem19[address] [place], [place] [address]Dr. Shahbaz Rogel pH (U) 6.0 [pH] Normal 5-9 [facility] Comment on above: Performed By: #### E RUR ####[facility] Ttwrxkwhqf9668[address] [place], [place] [address]Dr. Shahbaz Rogel SPEC GRAVITY 1.020 Normal 1.005-<=1. 025 [facility] Comment on above: Performed By: #### E RUR ####[facility] Dqzoidjqvc97[address] [place], [place] [address]Dr. Shahbaz Rogel UA PROTEIN Negative Normal NEGATIVE/ TRACE [facility] Comment on above: Performed By: #### E RUR ####[facility] Uxhurtdero9449[address] [place], [place] [address]Dr. Shahbaz Rogel UR MICRO IND NOT INDICATED Normal [facility] Comment on above: Performed By: #### E RUR ####[facility] Qzsyzggzff355[address] [place], [place] [address]Dr. Shahbaz Rogel Urobilinogen Qn (U) 0.2 {Melida'U}/dL Normal 0.2 - 1. 0 [facility] Comment on above: Performed By: #### E RUR ####[facility] Dpfqbogjxu660[address] [place], [place] [address]Dr. Shahbaz Juan F POINT OF CARE GLUCOSEon 01-01 Glucose [Mass/Vol] 151 mg/dL Critically high 74-106 [facility] Comment on above: Performed By: #### P OCGLUC ####[facility] Ajkhkivazy155[address] [place], [place] [address]Dr. Shahbaz Rogel Glucose [Mass/Vol] 248 mg/dL Critically high 74-106 [facility] Comment on above: Performed By: #### P OCGLUC ####[facility] Efqcpujjun648[address] [place], [place] [address]Dr. Shahbaz Rogel PROF 14(COMP METB)on 022 Albumin [Mass/Vol] 2.8 g/dL Critically low 3.4-5.0 [facility] Comment on above: Performed By: #### C MP ####[facility] Lhngzlwzxt59[address] [place], [place] [address]Dr. Shahbaz Rogel Albumin/Globulin [Mass ratio] 0.9 {ratio} Normal [facility] Comment on above: Performed By: #### C MP ####[facility] Ituyygtxty1816[address] [place], [place] [address]Dr. Shahbaz Rogel ALP [Catalytic activity/Vol] 90 U/L Normal 46-116 [facility] Comment on above: Performed By: #### C MP ####[facility] Toredowhoq625[address] [place], [place] [address]Dr. Shahbaz Rogel ALT [Catalytic activity/Vol] 20 U/L Normal 14-59 [facility] Comment on above: Performed By: #### C MP ####[facility] Bieqyjeknu740[address] [place], [place] [address]Dr. Shahbaz Rogel Anion gap [Moles/Vol] 8.9 mmol/L Normal [facility] Comment on above: Performed By: #### C MP ####[facility] Kytwoszowg8[address] [place], [place] [address]Dr. Shahbaz Rogel AST [Catalytic activity/Vol] 14 U/L Critically low 15-37 [facility] Comment on above: Performed By: #### C MP ####[facility] Mjguekfwqa548[address] [place], [place] [address]Dr. Shahbaz Rogel Bilirubin [Mass/Vol] 0.1 mg/dL Critically low 0.2-1.3 [facility] Comment on above: Performed By: #### C MP ####[facility] Qohexmavgm8144 [place] [address]Dr. Shahbaz Rogel Calcium [Mass/Vol] 8.2 mg/dL Critically low 8.5-10.1 [facility] Comment on above: Performed By: #### C MP ####[facility] Hnscopivaa8085 [place] [address]Dr. Shahbaz Rogel Chloride [Moles/Vol] 110 mmol/L Critically high 98-107 [facility] Comment on above: Performed By: #### C MP ####[facility] Ulqnoyihzp9405[address] [place], [place] [address]Dr. Shahbaz Rogel CO2 [Moles/Vol] 28.0 mmol/L Normal 22.0-30.0 [facility] Comment on above: Performed By: #### C MP ####[facility] Sryiamugey209[address] [place], [place] [address]Dr. Shahbaz Rogel Creatinine [Mass/Vol] 0.78 mg/dL Normal 0.52-1.04 [facility] Comment on above: Performed By: #### C MP ####[facility] Wvrigdgpgu829166 [address] [place], [place] [address]Dr. Shahbaz Rogel EGFR-AF SALVADOREAN >60 Normal >=60 [facility] Comment on above: Performed By: #### C MP ####[facility] Unnabfwdxd319[address] [place], [place] [address]Dr. Shahbaz Rogel EGFR-NON AF SALVADOREAN >60 Normal >=60 [facility] Comment on above: Performed By: #### C MP ####[facility] Nwfhuqtxgb6297 [place] [address]Dr. Shahbaz Rogel Globulin (S) [Mass/Vol] 3.1 g/dL Normal [facility] Comment on above: Performed By: #### C MP ####[facility] Loajqlapsk8094[address] [place], [place] [address]Dr. Shahbaz Rogel Glucose [Mass/Vol] 121 mg/dL Critically high 74-106 [facility] Comment on above: Performed By: #### C MP ####[facility] Zwudokpdnn7269 [place] [address]Dr. Shahbaz Rogel Potassium [Moles/Vol] 3.9 mmol/L Normal 3.4-5.0 [facility] Comment on above: Performed By: #### C MP ####[facility] Bhgpngvgmz8299 [place] [address]Dr. Shahbaz Rogel Protein [Mass/Vol] 5.9 g/dL Critically low 6.1-8.2 Th [facility] Comment on above: Performed By: #### C MP ####[facility] Zqbrrfvrhd6916[address] [place], [place] [address]Dr. Shahbaz Rogel Sodium [Moles/Vol] 143 mmol/L Normal 137-145 [facility] Comment on above: Performed By: #### C MP ####[facility] Krbwhsmqjh576[address] [place], [place] [address]Dr. Shahbaz Juan F Urea nitrogen [Mass/Vol] 26.0 mg/dL Critically high 7.0-18.0 [facility] Comment on above: Performed By: #### C MP ####[facility] Zodguogpvz0825[address] [place], [place] [address]Dr. Shahbaz Rogel Urea nitrogen/Creatinine [Mass ratio] 33.3 mg/mg Normal [facility] Comment on above: Performed By: #### C MP ####[facility] Eeqznimghx2428[address] [place], [place] [address]Dr. Shahbaz Juan F JNAJT-8-LAARFCXSIUHtv 2021 Cobqs-2-Ulwnkjnoeur, Serum 154 mg/dL Normal 101-187 [facility] Comment on above: Performed By: #### A LPHA-1 ####[facility] Brhvbqeixo5[address] [place], [place] [address]Dr. Shahbaz Juan F CBC AUTO DIFFon 01-20-2022 BASO # 0.0 103/ul Normal 0.0-0.1 [facility] Comment on above: Performed By: #### C BC ####[facility] Qnozshwfua338[address] [place], [place] [address]Dr. Shahbaz Juan F Basophils/100 WBC (Bld) 0.0 % Critically low 0.2-2.0 [facility] Comment on above: Performed By: #### C BC ####[facility] Fqkjtevyxy5719 [place] [address]Dr. Shahbaz Rogel EO # 0.0 103/ul Normal 0.0-0.7 [facility] Comment on above: Performed By: #### C BC ####[facility] Mwfwwxohfd5[address] [place], [place] [address]Dr. Shahbaz Rogel Eosinophils/100 WBC (Bld) 0.0 % Critically low 0.9-7.0 [facility] Comment on above: Performed By: #### C BC ####[facility] Aidjshlnbq06[address] [place], [place] [address]Dr. Shahbaz Rogel Erythrocyte distribution width (RBC) [Ratio] 13.7 % Normal 11.0-15.0 [facility] Comment on above: Performed By: #### C BC ####[facility] Qwjoapurdz47[address] [place], [place] [address]Dr. Shahbaz Rogel Hematocrit (Bld) [Volume fraction] 41.2 % Normal 36.0-48.0 [facility] Comment on above: Performed By: #### C BC ####[facility] Atquhuvbzu0[address] [place], [place] [address]Dr. Shahbaz Rogel Hemoglobin (Bld) [Mass/Vol] 12.8 g/dL Normal 12.0-16.0 [facility] Comment on above: Performed By: #### C BC ####[facility] Nubiqnwwhp8[address] [place], [place] [address]Dr. Shahbaz Rogel IG # 0.10 10e3/ul Critically high 0.00-0.03 [facility] Comment on above: Performed By: #### C BC ####[facility] Ipxlwjculd022[address] [place], [place] [address]Dr. Shahbaz Rogel IG % 0.5 % Normal 0.0-0.5 [facility] Comment on above: Performed By: #### C BC ####[facility] [address] [place] [address]Dr. Shahbaz Rogel LYMPH # 0.7 103/ul Critically low 1.2-3.8 [facility] Comment on above: Performed By: #### C BC ####[facility] Yifglkvejw[address] [place] [address]Dr. Shahbaz Rogel Lymphocytes/100 WBC (Bld) 6.2 % Critically low 20.5-60.0 [facility] Comment on above: Result Comment: dif. not rqd. same as 01/18/22 Performed By: #### C BC ####[facility] Psqicvooze60[address] [place], [place] [address]Dr. Shahbaz Rogle MANUAL DIFF REQ NO Normal [facility] Comment on above: Performed By: #### C BC ####[facility] Natzdxrrtn77[address] [place], [place] [address]Dr. Shahbaz Rogel MCH (RBC) [Entitic mass] 27.2 pg Normal 26.7-34.0 [facility] Comment on above: Performed By: #### C BC ####[facility] Xkghrzqxcg85[address] [place], [place] [address]Dr. Shahbaz Rogel MCHC (RBC) [Mass/Vol] 31.1 g/dL Normal 29.9-35.2 [facility] Comment on above: Performed By: #### C BC ####[facility] Gzrvzhetfi59[address] [place], [place] [address]Dr. Shahbaz Rogel MCV (RBC) [Entitic vol] 87.5 fL Normal 81.0-99.0 [facility] Comment on above: Performed By: #### C BC ####[facility] Mvttmrmadg387[address] [place], [place] [address]Dr. Shahbaz Rogel MONO # 0.2 103/ul Critically low 0.3-0.8 [facility] Comment on above: Performed By: #### C BC ####[facility] Pxczjfjcyf74[address] [place], [place] [address]Dr. Shahbaz Rogel Monocytes/100 WBC (Bld) 1.7 % Normal 1.7-12.0 [facility] Comment on above: Performed By: #### C BC ####[facility] Tzvinff[address]jd[address] [place] [id number]. Shahbaz Rogel NEUT # 9.8 103/ul Critically high 1.4-6.5 [facility] Comment on above: Performed By: #### C BC ####[facility] Ldzptbgcam0287 [place] [id number]. Shahbaz Rogel Neutrophils/100 WBC (Bld) 91.6 % Critically high 43.0-75.0 [facility] Comment on above: Performed By: #### C BC ####[facility] Sfxrbenupv8426 [place] [id number]. Shahbaz Rogel Platelet mean volume (Bld) [Entitic vol] 10.0 fL Normal 9.5-13.5 [facility] Comment on above: Performed By: #### C BC ####[facility] Gaikrldnru8[address] [place] [address]Dr. Shahbaz Rogel PLT 198 103/ul Normal 150-450 [facility] Comment on above: Performed By: #### C BC ####[facility] Inlmyoltkf40[address] [place] [address]Dr. Shahbaz Rogel RBC 4.71 106/ul Normal 4.20-5.40 [facility] Comment on above: Performed By: #### C BC ####[facility] Jddberfoyj5124 [place] [id number]. Shahbaz Rogel WBC 10.7 103/ul Normal 4.0-11.0 [facility] Comment on above: Performed By: #### C BC ####[facility] Bhpmhhzbka0629 [place] [id number]. Shahbaz Rogel POINT OF CARE GLUCOSEon 04-2 Glucose [Mass/Vol] 157 mg/dL Critically high 74-106 [facility] Comment on above: Performed By: #### P OCGLUC ####[facility] Wlghcjqerd6454 [place] [phone]. Shahbaz Rogel Glucose [Mass/Vol] 225 mg/dL Critically high 74-106 [facility] Comment on above: Performed By: #### P OCGLUC ####[facility] Ruloocfvxk3875 [place] [address]Dr. Shahbaz Rogel Glucose [Mass/Vol] 185 mg/dL Critically high 74-106 [facility] Comment on above: Performed By: #### P OCGLUC ####[facility] Yijzjgxlez3629 [place] [phone]. Shahbaz Rogel Glucose [Mass/Vol] 134 mg/dL Critically high 74-106 [facility] Comment on above: Performed By: #### P OCGLUC ####[facility] Qzqfyfbtdt88[address] [place] [address]Dr. Shahbaz Rogel PROF 14(COMP METB)on 022 Albumin [Mass/Vol] 3.0 g/dL Critically low 3.4-5.0 [facility] Comment on above: Performed By: #### C MP ####[facility] Stklbiwpzs0730[address] [place], [place] [address]Dr. Shahbaz Rogel Albumin/Globulin [Mass ratio] 0.9 {ratio} Normal [facility] Comment on above: Performed By: #### C MP ####[facility] Ereiajpdlb4[address] [place], [place] [address]Dr. Shahbaz Rogel ALP [Catalytic activity/Vol] 81 U/L Normal 46-116 [facility] Comment on above: Performed By: #### C MP ####[facility] Cfzgvbbdvv4424[address] [place], [place] [address]Dr. Shahbaz Rogel ALT [Catalytic activity/Vol] 14 U/L Normal 14-59 [facility] Comment on above: Performed By: #### C MP ####[facility] Yzpaafokee30[address] [place] [address]Dr. Shahbaz Rogel Anion gap [Moles/Vol] 13.1 mmol/L Normal [facility] Comment on above: Performed By: #### C MP ####[facility] Wevghpkxoy2904[address] [place], [place] [address]Dr. Shahbaz Rogel AST [Catalytic activity/Vol] 20 U/L Normal 15-37 [facility] Comment on above: Performed By: #### C MP ####[facility] Txzujsrgpx2819 [place] [phone]. Shahbaz Rogel Bilirubin [Mass/Vol] 0.3 mg/dL Normal 0.2-1.3 [facility] Comment on above: Performed By: #### C MP ####[facility] Qrdazysmnt6950 [place] [phone]. Shahbaz Rogel Calcium [Mass/Vol] 8.5 mg/dL Normal 8.5-10.1 [facility] Comment on above: Performed By: #### C MP ####[facility] Tidejqilja8145[address] [place], [place] [address]Dr. Shahbaz Rogel Chloride [Moles/Vol] 107 mmol/L Normal 98-107 [facility] Comment on above: Performed By: #### C MP ####[facility] Svfkaalomf70[address] [place], [place] [address]Dr. Shahbaz Rogel CO2 [Moles/Vol] 24.0 mmol/L Normal 22.0-30.0 [facility] Comment on above: Performed By: #### C MP ####[facility] Yplbuhljgz5337[address] [place], [place] [address]Dr. Shahbaz Rogel Creatinine [Mass/Vol] 1.00 mg/dL Normal 0.52-1.04 [facility] Comment on above: Performed By: #### C MP ####[facility] Fvgdmmqyub878[address] [place], [place] [address]Dr. Shahbaz Juan F EGFR-AF SALVADOREAN >60 Normal >=60 [facility] Comment on above: Performed By: #### C MP ####[facility] Ibveftbtdh812866 [address] [place], [place] [address]Dr. Shahbaz Juan F EGFR-NON AF SALVADOREAN 57 mL/min/1.73m2 Critically low >=60 [facility] Comment on above: Performed By: #### C MP ####[facility] Vupafnkfmr1970[address] [place], [place] [address]Dr. Shahbaz Juan F Globulin (S) [Mass/Vol] 3.4 g/dL Normal [facility] Comment on above: Performed By: #### C MP ####[facility] Yknnnrwzeh6346 [place] [phone]. Shahbaz Rogel Glucose [Mass/Vol] 153 mg/dL Critically high 74-106 [facility] Comment on above: Performed By: #### C MP ####[facility] Syqujequmv79[address] [place] [address]Dr. Shahbaz Rogel Potassium [Moles/Vol] 4.1 mmol/L Normal 3.4-5.0 [facility] Comment on above: Performed By: #### C MP ####[facility] Lqygkivscq0379[address] [place], [place] [address]Dr. Shahbaz Rogel Protein [Mass/Vol] 6.4 g/dL Normal 6.1-8.2 [facility] Comment on above: Performed By: #### C MP ####[facility] Bnxuuzxbot6278[address] [place], [place] [address]Dr. Shahbaz Rogel Sodium [Moles/Vol] 140 mmol/L Normal 137-145 [facility] Comment on above: Performed By: #### C MP ####[facility] Mtbmuezhes185[address] [place], [place] [address]Dr. Shahbaz Rogel Urea nitrogen [Mass/Vol] 26.0 mg/dL Critically high 7.0-18.0 [facility] Comment on above: Performed By: #### C MP ####[facility] Rooetyrpza7332[address] [place], [place] [address]Dr. Shahbaz Rogel Urea nitrogen/Creatinine [Mass ratio] 26.5 mg/mg Normal [facility] Comment on above: Performed By: #### C MP ####[facility] Uzbotelsvq6787[address] [place], [place] [address]Dr. Shahbaz Rogel BNPon 01-19-2022 Natriuretic peptide B (Bld) [Mass/Vol] 117.0 pg/mL Normal <=900.0 [facility] Comment on above: Performed By: #### B WEIGHT LOSS PHYSICIAN, CMP ####[facility] Hmevnrcgxu[address] [place], [place] [address]Dr. Shahbaz Rogel CBC AUTO DIFFon 01-19-2022 BASO # 0.0 103/ul Normal 0.0-0.1 [facility] Comment on above: Performed By: #### C BC ####[facility] Cpcbicqfze8357 [place] [id number]. Shahbaz Rogel Basophils/100 WBC (Bld) 0.0 % Critically low 0.2-2.0 [facility] Comment on above: Performed By: #### C BC ####[facility] Mrcyoqkjlz698[address] [place], [place] [address]Dr. Shahbaz Rogel EO # 0.0 103/ul Normal 0.0-0.7 [facility] Comment on above: Performed By: #### C BC ####[facility] Cmaziqckyv6424[address] [place], [place] [address]Dr. Shahbaz Rogel Eosinophils/100 WBC (Bld) 0.0 % Critically low 0.9-7.0 [facility] Comment on above: Performed By: #### C BC ####[facility] Qanwkeucpj9433[address] [place], [place] [address]Dr. Shahbaz Rogel Erythrocyte distribution width (RBC) [Ratio] 13.4 % Normal 11.0-15.0 [facility] Comment on above: Performed By: #### C BC ####[facility] Kidgzfnbmb426[address] [place], [place] [address]Dr. Shahbaz Rogel Hematocrit (Bld) [Volume fraction] 46.3 % Normal 36.0-48.0 [facility] Comment on above: Performed By: #### C BC ####[facility] Cvmousmytv0850[address] [place], [place] [address]Dr. Shahbaz Rogel Hemoglobin (Bld) [Mass/Vol] 14.3 g/dL Normal 12.0-16.0 [facility] Comment on above: Performed By: #### C BC ####[facility] Hrlgqvxqch46[address] [place], [place] [address]Dr. Shahbaz Rogel IG # 0.00 10e3/ul Normal 0.00-0.03 [facility] Comment on above: Performed By: #### C BC ####[facility] Rrzoubybzl[address] [place], [place] [address]Dr. Shahbaz Rogel IG % 0.0 % Normal 0.0-0.5 [facility] Comment on above: Performed By: #### C BC ####[facility] Jqeyyzicbh2622 [place] [address]Dr. Shahbaz Rogel LYMPH # 0.6 103/ul Critically low 1.2-3.8 [facility] Comment on above: Performed By: #### C BC ####[facility] Skmygoccps2567 [place] [phone]. Shahbaz Rogel Lymphocytes/100 WBC (Bld) 14.2 % Critically low 20.5-60.0 [facility] Comment on above: Performed By: #### C BC ####[facility] Qpzulmeqtj4261 [place] [address]Dr. Shahbaz Rogel MANUAL DIFF REQ NO Normal [facility] Comment on above: Performed By: #### C BC ####[facility] Mtreooicce[address] [place], [place] [address]Dr. Shahbaz Rogel MCH (RBC) [Entitic mass] 27.7 pg Normal 26.7-34.0 [facility] Comment on above: Performed By: #### C BC ####[facility] Ondpoaonkn9[address] [place], [place] [address]Dr. Lilajarrod Rogel MCHC (RBC) [Mass/Vol] 30.9 g/dL Normal 29.9-35.2 [facility] Comment on above: Performed By: #### C BC ####[facility] Szgehpiogf698[address] [place], [place] [address]DrChen Rogel MCV (RBC) [Entitic vol] 89.6 fL Normal 81.0-99.0 [facility] Comment on above: Performed By: #### C BC ####[facility] Yggiampjib5264[address] [place], [place] [address]DrChen Rogel MONO # 0.0 103/ul Critically low 0.3-0.8 [facility] Comment on above: Performed By: #### C BC ####[facility] Bxvxihnrow4116 [place] [id number]. Shahbaz Rogel Monocytes/100 WBC (Bld) 1.0 % Critically low 1.7-12.0 [facility] Comment on above: Performed By: #### C BC ####[facility] Szyfhllxvk0618 [place] [address]Dr. Shahbaz Rogel NEUT # 3.5 103/ul Normal 1.4-6.5 [facility] Comment on above: Performed By: #### C BC ####[facility] Lnlrmbavfn6840 [place] [address]Dr. Shahbaz Juan F Neutrophils/100 WBC (Bld) 84.8 % Critically high 43.0-75.0 [facility] Comment on above: Performed By: #### C BC ####[facility] Drsncyikos01[address] [place] [address]Dr. Shahbaz Juan F Platelet mean volume (Bld) [Entitic vol] 9.8 fL Normal 9.5-13.5 [facility] Comment on above: Performed By: #### C BC ####[facility] Fttvjcpxhb4029 [place] [address]Dr. Shahbaz Juan F PLT 185 103/ul Normal 150-450 [facility] Comment on above: Performed By: #### C BC ####[facility] Nttpfaabjh0225[address] [place], [place] [address]Dr. Shahbaz Juan F RBC 5.17 106/ul Normal 4.20-5.40 [facility] Comment on above: Performed By: #### C BC ####[facility] Ljojetfpwt5478[address] [place], [place] [address]Dr. Shahbaz Rogel WBC 4.2 103/ul Normal 4.0-11.0 [facility] Comment on above: Performed By: #### C BC ####[facility] Klqnvfakvp6200 [place] [address]Dr. Shahbaz Rogel LACTATE/LACTIC ACIDon 2021 Lactate [Moles/Vol] 1.7 mmol/L Normal 0.7-2.0 [facility] Comment on above: Performed By: #### L ACT ####[facility] Asuygfpxpm9569[address] [place], [place] [address]Dr. Shahbaz Rogel POINT OF CARE GLUCOSEon 01-01 Glucose [Mass/Vol] 173 mg/dL Critically high 74-106 [facility] Comment on above: Performed By: #### P OCGLUC ####[facility] Qldehotbih8207 [place] [address]Dr. Shahbaz Rogel Glucose [Mass/Vol] 181 mg/dL Critically high 74-106 [facility] Comment on above: Performed By: #### P OCGLUC ####[facility] Nyanvvvmwp7092 [place] [address]Dr. Shahbaz Rogel Glucose [Mass/Vol] 154 mg/dL Critically high -106 [facility] Comment on above: Performed By: #### P OCGLUC ####[facility] Kyhzarxfsa008[address] [place], [place] [address]Dr. Shahbaz Rogel PROF 14(COMP METB)on 022 Albumin [Mass/Vol] 3.5 g/dL Normal 3.4-5.0 [facility] Comment on above: Performed By: #### B WEIGHT LOSS PHYSICIAN, CMP ####[facility] Kqujgzlotr2318[address] [place], [place] [address]Dr. Shahbaz Rogel Albumin/Globulin [Mass ratio] 0.9 {ratio} Normal [facility] Comment on above: Performed By: #### B WEIGHT LOSS PHYSICIAN, CMP ####[facility] Yphesfzepg5260[address] [place], [place] [address]Dr. Shahbaz Rogel ALP [Catalytic activity/Vol] 107 U/L Normal 46-116 [facility] Comment on above: Performed By: #### B WEIGHT LOSS PHYSICIAN, CMP ####[facility] Dvfihnlbog5623[address] [place], [place] [address]Dr. Shahbaz Rogel ALT [Catalytic activity/Vol] 18 U/L Normal 14-59 [facility] Comment on above: Performed By: #### B WEIGHT LOSS PHYSICIAN, CMP ####[facility] Vmkzclpgqq6418[address] [place], [place] [address]Dr. Shahbaz Rogel Anion gap [Moles/Vol] 14.1 mmol/L Normal [facility] Comment on above: Performed By: #### B WEIGHT LOSS PHYSICIAN, CMP ####[facility] Wnvrkcgseq568[address] [place], [place] [address]Dr. Shahbaz Rogel AST [Catalytic activity/Vol] 19 U/L Normal 15-37 [facility] Comment on above: Performed By: #### B WEIGHT LOSS PHYSICIAN, CMP ####[facility] Jemboxplad9910[address] [place], [place] [address]Dr. Shahbaz Rogel Bilirubin [Mass/Vol] 0.5 mg/dL Normal 0.2-1.3 [facility] Comment on above: Performed By: #### B WEIGHT LOSS PHYSICIAN, CMP ####[facility] Zcxxhpzhmx4037[address] [place], [place] [address]Dr. Shahbaz Rogel Calcium [Mass/Vol] 8.5 mg/dL Normal 8.5-10.1 [facility] Comment on above: Performed By: #### B WEIGHT LOSS PHYSICIAN, CMP ####[facility] Xatswojxgj7138[address] [place], [place] [address]Dr. Shahbaz Rogel Chloride [Moles/Vol] 103 mmol/L Normal 98-107 [facility] Comment on above: Performed By: #### B WEIGHT LOSS PHYSICIAN, CMP ####[facility] Apwowgyrnu3315[address] [place], [place] [address]Dr. Shahbaz Rogel CO2 [Moles/Vol] 25.4 mmol/L Normal 22.0-30.0 [facility] Comment on above: Performed By: #### B WEIGHT LOSS PHYSICIAN, CMP ####[facility] Dopjonoflk1132[address] [place], [place] [address]Dr. Shahbaz Rogel Creatinine [Mass/Vol] 1.48 mg/dL Critically high 0.52-1.04 [facility] Comment on above: Performed By: #### B WEIGHT LOSS PHYSICIAN, CMP ####[facility] Xubvrlfvay823[address] [place], [place] [address]Dr. Shahbaz Rogel EGFR-AF SALVADOREAN 44 mL/min/1.73m2 Critically low >=60 [facility] Comment on above: Performed By: #### B WEIGHT LOSS PHYSICIAN, CMP ####[facility] Iqzoixodty5898[address] [place], [place] [address]Dr. Shahbaz Rogel EGFR-NON AF SALVADOREAN 36 mL/min/1.73m2 Critically low >=60 [facility] Comment on above: Performed By: #### B WEIGHT LOSS PHYSICIAN, CMP ####[facility] Rsmsfqzdul1314 [place] [address]Dr. Shahbaz Rogel Globulin (S) [Mass/Vol] 3.7 g/dL Normal [facility] Comment on above: Performed By: #### B WEIGHT LOSS PHYSICIAN, CMP ####[facility] Msfcqzysyq060[address] [place], [place] [address]Dr. Shahbaz Rogel Glucose [Mass/Vol] 203 mg/dL Critically high 74-106 [facility] Comment on above: Performed By: #### B WEIGHT LOSS PHYSICIAN, CMP ####[facility] Qufeixtfwq8237[address] [place], [place] [address]Dr. Shahbaz Rogel Potassium [Moles/Vol] 3.5 mmol/L Normal 3.4-5.0 [facility] Comment on above: Performed By: #### B WEIGHT LOSS PHYSICIAN, CMP ####[facility] Uguplfzmua5957[address] [place], [place] [address]Dr. Shahbaz Rogel Protein [Mass/Vol] 7.2 g/dL Normal 6.1-8.2 [facility] Comment on above: Performed By: #### B WEIGHT LOSS PHYSICIAN, CMP ####[facility] Yayxykstfu544[address] [place], [place] [address]Dr. Shahbaz Rogel Sodium [Moles/Vol] 139 mmol/L Normal 137-145 [facility] Comment on above: Performed By: #### B WEIGHT LOSS PHYSICIAN, CMP ####[facility] Vtlixjulfr1870[address] [place], [place] [address]Dr. Shahbaz Rogel Urea nitrogen [Mass/Vol] 17.0 mg/dL Normal 7.0-18.0 [facility] Comment on above: Performed By: #### B WEIGHT LOSS PHYSICIAN, CMP ####[facility] Xzqqijpcad[address] [place], [place] [address]Dr. Shahbaz Rogel Urea nitrogen/Creatinine [Mass ratio] 11.5 mg/mg Normal [facility] Comment on above: Performed By: #### B WEIGHT LOSS PHYSICIAN, CMP ####[facility] Dezzjcurvv3936[address] [place], [place] [address]Dr. Shahbaz Rogel BNPon 01-18-2022 Natriuretic peptide B (Bld) [Mass/Vol] 55.0 pg/mL Normal <=900.0 [facility] Comment on above: Performed By: #### C MP, BNP, HSTROPN ####[facility] Onqrltxhpv4872 [place] [address]Dr. Shahbaz Juan F CBC W MANUAL DIFFon 01-19-20 22 ATYPICAL LYMPH # 0.12 103/ul Normal [facility] Comment on above: Performed By: #### C BCMAN ####[facility] Cpbordkayk[address] [place], [place] [address]Dr. Shahbaz Rogel ATYPICAL LYMPH % 2 % Normal [facility] Comment on above: Performed By: #### C BCMAN ####[facility] Jjykehgtgt65[address] [place], [place] [address]Dr. Shahbaz Rogel BAND # 0.0 103/ul Normal 0.0-0.3 [facility] Comment on above: Performed By: #### C CHANELMAN ####[facility] Iujbbxffob5725[address] [place], [place] [address]Dr. Lilajarrod Rogel BAND % 0 % Normal 0-5 [facility] Comment on above: Performed By: #### C CAIN ####[facility] Rbwppazvxt32[address] [place], [place] [address]Dr. Shahbaz Rogel BASOM # 0.00 103/ul Normal 0.00-0.10 [facility] Comment on above: Performed By: #### C CAIN ####[facility] Bzcityyrut9[address] [place], [place] [address]Dr. Lilajarrod Rogel BASOM % 0.0 % Critically low 0.2-2.0 [facility] Comment on above: Performed By: #### C BCBRICE ####[facility] Eshbonvekt6[address] [place], [place] [address]Dr. Shahbaz Rogel BLAST # Normal [facility] Comment on above: Performed By: #### C CAIN ####[facility] Zdgllmpqjr684[address] [place], [place] [address]Dr. Shahbaz Rogel BLAST % Normal [facility] Comment on above: Performed By: #### C CAIN ####[facility] Rbiaakblpf245[address] [place], [place] [address]Dr. Shahbaz Rogel CORRECTED WBC Normal 4.0-11.0 [facility] Comment on above: Performed By: #### C BCMAN ####[facility] Wrogmifcry[address] [place] [id number]. Shahbaz Rogel EOS # 0.25 103/ul Normal 0.00-0.70 [facility] Comment on above: Performed By: #### C BCBRICE ####[facility] Kdhraxghub1761 [place] [id number]. Shahbaz Rogel EOS% 4.0 % Normal 0.9-7.0 [facility] Comment on above: Performed By: #### C CAIN ####[facility] Axyfenpvdo1618 [place] [id number]. Shahbaz Rogel HCT 46.8 % Normal 36.0-48.0 [facility] Comment on above: Performed By: #### C CAIN ####[facility] [address]izwadku[address] [place], [place] [id number]. Shahbaz Rogel HGB 14.9 g/dl Normal 12.0-16.0 [facility] Comment on above: Performed By: #### C CAIN ####[facility] Pschvmobiu[address] [place], [place] [address]Dr. Shahbaz Rogel LYMPHM # 0.68 103/ul Critically low 1.20-3.80 [facility] Comment on above: Performed By: #### C CAIN ####[facility] Zbdjocyofk110[address] [place] [id number]. Shahbaz Rogel LYMPHM% 11.0 % Critically low 20.5-60.0 [facility] Comment on above: Performed By: #### C CAIN ####[facility] [address]uzk[address] [place] [id number]. Shahbaz Rogel MCH 27.6 pg Normal 26.7-34.0 [facility] Comment on above: Performed By: #### C CAIN ####[facility] Xjgacmcyuw[address] [place] [id number]. Shahbaz Rogel MCHC 31.8 g/dl Normal 29.9-35.2 [facility] Comment on above: Performed By: #### C CAIN ####[facility] Mtccsdvljd[address] [place] [id number]. Shahbaz Rogel MCV 86.8 fL Normal 81.0-99.0 [facility] Comment on above: Performed By: #### C CAIN ####[facility] Hvgmpjysxi7[address] [place] [id number]. Shahbaz Rogel METAMYELOCYTE # Normal [facility] Comment on above: Performed By: #### C CANI ####[facility] Mvyoinuxev[address] [place] [address]Dr. Shahbaz Rogel METAMYELOCYTE % Normal [facility] Comment on above: Performed By: #### C CAIN ####[facility] Asmm[address]kawng[address] [place] [address]Dr. Shahbaz Rogel MONOM# 0.19 103/ul Critically low 0.30-0.80 [facility] Comment on above: Performed By: #### C CAIN ####[facility] K[address]sl[address] [place], [place] [address]Dr. Shahbaz Rogel MONOM% 3.0 % Normal 1.7-12.0 [facility] Comment on above: Performed By: #### C CAIN ####[facility] L[address]rth[address] [place], [place] [address]Dr. Shahbaz Rogel MPV 9.6 fL Normal 9.5-13.5 [facility] Comment on above: Performed By: #### Cheir BARLOW ####[facility] Wrcbvklprq[address] [place], [place] [address]Dr. Shahbaz Rogel MYELOCYTE # Normal [facility] Comment on above: Performed By: #### C CAIN ####[facility] Ioickhrebv[address] [place] [address]Dr. Shahbaz Rogel MYELOCYTE % Normal [facility] Comment on above: Performed By: #### C CAIN ####[facility] [address]admer[address] [place] [address]Dr. Shahbaz Rogel NRBC Normal [facility] Comment on above: Performed By: #### C CAIN ####[facility] Nzxflfjlay6[address] [place] [id number]. Shahbaz Rogel PLT 203 103/ul Normal 150-450 [facility] Comment on above: Performed By: #### C CAIN ####[facility] Xrhtjpckrx5[address] [place] [id number]. Shahbaz Rogel RBC 5.39 106/ul Normal 4.20-5.40 [facility] Comment on above: Performed By: #### C CAIN ####[facility] Tecvoxdctr4[address] [place] [address]Dr. Shahbaz Rogel RDW 13.7 % Normal 11.0-15.0 [facility] Comment on above: Performed By: #### C CAIN ####[facility] Kkxvobhjpp[address] [place] [address]Dr. Shahbaz Rogel SEG # 4.96 103/ul Normal 1.40-6.50 [facility] Comment on above: Performed By: #### Cheri BARLOW ####[facility] Llqbyapifv[address] [place], [place] [address]Dr. Shahbaz Rogel SEG % 80.0 % Critically high 43.0-75.0 [facility] Comment on above: Performed By: #### Cheri BARLOW ####[facility] Rfkwdoqxvg[address] [place], [place] [address]Dr. Shahbaz Rogel WBC 6.2 103/ul Normal 4.0-11.0 [facility] Comment on above: Performed By: #### Cheri BARLOW ####[facility] Rincbbxcch[address] [place], [place] [address]Dr. Shahbaz Rogel CULTURE BLOODon 01-18-2022 Microscopic examination of blood, culture Culture Observations: No growth at 5 days. Normal [facility] Comment on above: Performed By: #### B LDCX2 ####[facility] Ljaukp[address]pk[address] [place], [place] [address]Dr. Shahbaz Rogel Microscopic examination of blood, culture Culture Observations: No growth at 5 days Normal [facility] Comment on above: Performed By: #### B LDCX1 ####[facility] Ufchyawc[address] [place], [place] [address]Dr. Shahbaz Rogel Covid-19 PCR (CVDTBH)on 12-31 SARS-CoV-2 (COVID-19) RNA PAVAN+probe Ql (Unsp spec) Not detected Normal NOT DETECTED [facility] Comment on above: Result Comment: This test is not yet approved or cleared by the [place] FDA. When there are no FDA-approved or cleared tests available, and other criteria are met, FDA can make tests available under an emergency access mechanism called an Emergency Use Authorization (EUA). The EUA for this test is supported by the [place] of Health and Human Service's (HHS's) declaration [...] with SARS-CoV-2. Performed By: #### C VDTBH ####[facility] L[address] [place], [place] [address]Hd. Shahbaz Rogel D-DIMERon 01-18-2022 D-DIMER 0.29 mg/L FEU Normal 0.19-0.50 [facility] Comment on above: Performed By: #### D DIM ####[facility] Asystvpsnw50[address] [place], [place] [address]Gz. jarrod [facility] D-DIMER COMMENTS SEE BELOW Normal [facility] Comment on above: Result Comment: [...] generalized hospitalization. Performed By: #### D DIM ####[facility] Gmvqulmedh[address] [place], [place] [address]Dr. Lilajarrod Juan F INFLUENZA A AND B AGon 01-18 INFLUANEGH SEE BELOW Normal [facility] Comment on above: Result Comment: Nega tive for Flu A protein angiten. Infection due to Flu A cannot be ruled out. Flu A angiten in the sample may be below the detection limit of the test. Performed By: #### I NFLUAB ####[facility] Dahbgtrtpd[address] [place], [place] [address]Dr. Lilajarrod Rogel INFLUBNEGH SEE BELOW Normal [facility] Comment on above: Result Comment: Nega tive for Flu B protein antigen. Infection due to Flu B cannot be ruled out. Flu B antigen in the sample may be below the detection limit of the test. Performed By: #### I NFLUAB ####[facility] Bjgzpyyvwk[address] [place], [place] [address]Dr. Shahbaz Rogel INFLUENZA A AG Negative Normal NEGATIVE SEE COMMENT [facility] Comment on above: Performed By: #### I NFLUAB ####[facility] Pkpvziowwp[address] [place], [place] [address]Dr. Shahbaz Rogel INFLUENZA B AG Negative Normal NEGATIVE SEE COMMENT [facility] Comment on above: Performed By: #### I NFLUAB ####[facility] Zeateejsrh[address] [place], [place] [address]Dr. Shahbaz Rogel INTERNAL CONTROLS Within Normal Limits Normal Wi thin Normal Limits [facility] Comment on above: Performed By: #### I NFLUAB ####[facility] Oslqfktsfe[address] [place], [place] [address]Dr. Shahbaz Rogel LACTATE/LACTIC ACIDon 2021 Lactate [Moles/Vol] 1.0 mmol/L Normal 0.7-2.0 [facility] Comment on above: Performed By: #### L ACT ####[facility] Mdopiwpioj[address] [place], [place] [address]Dr. Shahbaz Rogel PROF 14(COMP METB)on 022 Albumin [Mass/Vol] 3.8 g/dL Normal 3.4-5.0 [facility] Comment on above: Performed By: #### C MP, BNP, HSTROPN ####[facility] Qqdssustey[address] [place] [address]Dr. Shahbaz Rogel Albumin/Globulin [Mass ratio] 1.0 {ratio} Normal [facility] Comment on above: Performed By: #### C MP, BNP, HSTROPN ####[facility] Hssrneajmh[address] [place], [place] [address]Dr. Shahbaz Rogel ALP [Catalytic activity/Vol] 116 U/L Normal 46-116 [facility] Comment on above: Performed By: #### C MP, BNP, HSTROPN ####[facility] Mctokrsbyj[address] [place], [place] [address]Dr. Shahbaz Rogel ALT [Catalytic activity/Vol] 16 U/L Normal 14-59 [facility] Comment on above: Performed By: #### C MP, BNP, HSTROPN ####[facility] Ejwoxlyodv[address] [place], [place] [address]Dr. Shahbaz Rogel Anion gap [Moles/Vol] 9.4 mmol/L Normal [facility] Comment on above: Performed By: #### C MP, BNP, HSTROPN ####[facility] Rdsmjiqzmi[address] [place], [place] [address]Dr. Shahbaz Rogel AST [Catalytic activity/Vol] 19 U/L Normal 15-37 [facility] Comment on above: Performed By: #### C MP, BNP, HSTROPN ####[facility] Omruulenrp[address] [place], [place] [address]Dr. Shahbaz Rogel Bilirubin [Mass/Vol] 0.5 mg/dL Normal 0.2-1.3 [facility] Comment on above: Performed By: #### C MP, BNP, HSTROPN ####[facility] Ymghqrutry[address] [place], [place] [address]Dr. Shahbaz Rogel Calcium [Mass/Vol] 8.9 mg/dL Normal 8.5-10.1 [facility] Comment on above: Performed By: #### C MP, BNP, HSTROPN ####[facility] Xtq[address] [place] [address]Dr. Shahbaz Rogel Chloride [Moles/Vol] 104 mmol/L Normal 98-107 [facility] Comment on above: Performed By: #### C MP, BNP, HSTROPN ####[facility] Fiubjzwpnf[address] [place] [address]Dr. Shahbaz Rogel CO2 [Moles/Vol] 27.2 mmol/L Normal 22.0-30.0 [facility] Comment on above: Performed By: #### C MP, BNP, HSTROPN ####[facility] Rtsdmekguy[address] [place] [address]Dr. Shahbaz Rogel Creatinine [Mass/Vol] 0.99 mg/dL Normal 0.52-1.04 [facility] Comment on above: Performed By: #### C MP, BNP, HSTROPN ####[facility] Byusxfnrio[address] [place], [place] [address]Dr. Shahbaz Rogel EGFR-AF SALVADOREAN >60 Normal >=60 [facility] Comment on above: Performed By: #### C MP, BNP, HSTROPN ####[facility] Xnflwephms[address] [place], [place] [address]Dr. Shahbaz Rogel EGFR-NON AF [place]VADOREAN 58 mL/min/1.73m2 Critically low >=60 [facility] Comment on above: Performed By: #### C MP, BNP, HSTROPN ####[facility] Rowltxycml[address] [place], [place] [address]Dr. Shahbaz Rogel Globulin (S) [Mass/Vol] 3.8 g/dL Normal [facility] Comment on above: Performed By: #### C MP, BNP, HSTROPN ####[facility] Gqethlxfiu[address] [place], [place] [address]Dr. Shahbaz Rogel Glucose [Mass/Vol] 104 mg/dL Normal 74-106 [facility] Comment on above: Performed By: #### C MP, BNP, HSTROPN ####[facility] Empdedjray[address] [place] [address]Dr. Shahbaz Rogel Potassium [Moles/Vol] 3.6 mmol/L Normal 3.4-5.0 [facility] Comment on above: Performed By: #### C MP, BNP, HSTROPN ####[facility] Rrixodwxvv[address] [place] [address]Dr. Shahbaz Rogel Protein [Mass/Vol] 7.6 g/dL Normal 6.1-8.2 [facility] Comment on above: Performed By: #### C MP, BNP, HSTROPN ####[facility] [address]ocdzkt[address] [place] [address]Dr. Shahbaz Rogel Sodium [Moles/Vol] 137 mmol/L Normal 137-145 [facility] Comment on above: Performed By: #### C MP, BNP, HSTROPN ####[facility] Dyxchtotgi[address] [place] [address]Dr. Shahbaz Rogel Urea nitrogen [Mass/Vol] 9.0 mg/dL Normal 7.0-18.0 [facility] Comment on above: Performed By: #### C MP, BNP, HSTROPN ####[facility] Pokkwwwrei[address] [place] [address]Dr. Shahbaz Rogel Urea nitrogen/Creatinine [Mass ratio] 9.1 mg/mg Normal [facility] Comment on above: Performed By: #### C MP, BNP, HSTROPN ####[facility] [address]mykg[address] [place] [address]Dr. Shahbaz Rogel TROPONIN, HIGH SENSITIVITYon 01-18-2022 HSTROP 6.4 pg/mL Normal 4.0-35.5 [facility] Comment on above: Result Comment: CUT- OFF POINTS HAVE BEEN ESTABLISHED BASED ON THE FOURTH UNIVERSAL DEFINITIONS OF MYOCARDIALINFARCTION. THE UPPER REFERENCE LIMIT (URL) OF TROPONIN, DEFINED THE 99TH PERCENTILE OFcTnI DISTRIBUTION IN A REFERENCE POPULATION, HAS BEEN CONFIRMED THE DECISION THRESHOLDFOR RI DIAGNOSIS. Performed By: #### C MP, BNP, HSTROPN ####[facility] [address] [place] [address]Dr. Shahbaz Rogel XR CHEST 2 Von 01-18-2022 XR CHEST 2 V Normal [facility] URINALYSIS REFLEXon 04-04-20 20 Appearance (U) CLEAR Normal CLEAR [facility] Comment on above: Order Comment: No: D o not add to previous draw Performed By: #### 1 0070, 62768, 26700, 89372, 81952, 80273 #### [facility] [address] [place] [address], [place] Bilirubin [Mass/Vol] Negative Normal NEGATIVE [facility] Comment on above: Order Comment: No: D o not add to previous draw Performed By: #### 1 0070, 52391, 42355, 34549, 80817, 58133 #### [facility] [address] [place] [address], [place] BLOOD Negative Normal NEGATIVE [facility] Comment on above: Order Comment: No: D o not add to previous draw Performed By: #### 1 0070, 33088, 66617, 75251, 81197, 24395 #### [facility] [address] [place] [address], [place] Color (U) YELLOW Normal YELLOW [facility] Comment on above: Order Comment: No: D o not add to previous draw Performed By: #### 1 0070, 36866, 64520, 47720, 68977, 29939 #### [facility] [address] [place] [address], [place] Glucose [Mass/Vol] Negative Normal NEGATIVE [facility] Comment on above: Order Comment: No: D o not add to previous draw Performed By: #### 1 0070, 30738, 65976, 88130, 77741, 49105 #### [facility] [address] [place] [address], [place] KETONE Negative Normal NEGATIVE [facility] Comment on above: Order Comment: No: D o not add to previous draw Performed By: #### 1 0070, 41742, 14946, 07348, 20915, 94576 #### [facility] [address] [place] [address], [facility] LEUK ELIU Negative Normal NEGATIVE [facility] Comment on above: Order Comment: No: D o not add to previous draw Performed By: #### 1 0070, 28241, 03241, 58147, 40120, 10243 #### [facility] [address] [place] [address], [facility] MICRO NOT DONE Normal [facility] Comment on above: Order Comment: No: D o not add to previous draw Result Comment: Micr oscopics not performed on urines with negative chemical reactions unless requested in original order Performed By: #### 1 0070, 42151, 98538, 01194, 85758, 63194 #### [facility] [address] [facility] [place] [address], [facility] Nitrite Ql (U) Negative Normal NEGATIVE [facility] Comment on above: Order Comment: No: D o not add to previous draw Performed By: #### 1 0070, 89277, 12791, 33019, 05557, 01480 #### [facility] [address] [facility] [place] [address], [facility] pH (Bld) 5.0 Normal 5.0-8.0 [facility] Comment on above: Order Comment: No: D o not add to previous draw Performed By: #### 1 0070, 83204, 79774, 50768, 04223, 28762 #### [facility] [address] [facility] [place] [address], [facility] Protein (U) [Mass/Vol] Negative Normal NEGATIVE Th e [facility] Comment on above: Order Comment: No: D o not add to previous draw Performed By: #### 1 0070, 37629, 36149, 23424, 32137, 15315 #### [facility] [address] [place] [address], [facility] SPEC GRAV 1.012 Low 1.015-1.02 0 [facility] Comment on above: Order Comment: No: D o not add to previous draw Performed By: #### 1 0070, 01103, 06434, 96083, 34077, 33366 #### [facility] [address] [place] [address], [facility] BASIC METABOLIC PANELon 07-0 -2019 Calcium [Mass/Vol] 8.4 mg/dL Low 8.6-10.3 [facility] Comment on above: Order Comment: No: D o not add to previous draw Performed By: #### 1 0070, 90875, 80013, 40344, 63810, 75584 #### [facility] [address] [place] [address], [facility] Chloride [Moles/Vol] 101 mmol/L Normal 98-107 [facility] Comment on above: Order Comment: No: D o not add to previous draw Performed By: #### 1 0070, 85849, 15832, 39637, 99196, 64477 #### [facility] [address] [place] [address], [facility] CO2 [Moles/Vol] 29 mmol/L Normal 21-31 [facility] Comment on above: Order Comment: No: D o not add to previous draw Performed By: #### 1 0070, 96251, 04317, 38905, 56249, 58621 #### [facility] [address] [place] [address], [facility] Creatinine [Mass/Vol] 0.79 mg/dL Normal 0.60-1.20 [facility] Comment on above: Order Comment: No: D o not add to previous draw Performed By: #### 1 0070, 42332, 86004, 65787, 55971, 89824 #### [facility] [address] [place] [id number], [facility] GFR/1.73 sq M predicted among blacks MDRD (S/P/Bld) [Vol rate/Area] mL/min/{1.73_m2} Normal >60 [facility] Comment on above: Order Comment: No: D o not add to previous draw Performed By: #### 1 0070, 62179, 64469, 99414, 87975, 15092 #### [facility] [address] [place] [address], [facility] GFR/1.73 sq M predicted among non-blacks MDRD (S/P/Bld) [Vol rate/Area] mL/min/{1.73_m2} Normal >60 [facility] Comment on above: Order Comment: No: D o not add to previous draw Performed By: #### 1 0070, 45532, 85893, 64312, 61767, 51475 #### [facility] [address] [place] [address], [place] Glucose [Mass/Vol] 91 mg/dL Normal 70-100 [facility] Comment on above: Order Comment: No: D o not add to previous draw Performed By: #### 1 0070, 35101, 09443, 34481, 99088, 41230 #### [facility] [address] [place] [address], [place] Potassium [Moles/Vol] 3.9 mmol/L Normal 3.5-5.1 [facility] Comment on above: Order Comment: No: D o not add to previous draw Performed By: #### 1 0070, 75873, 69532, 38717, 06078, 49433 #### [facility] [address] [place] [address], [place] Sodium [Moles/Vol] 133 mmol/L Low 136-145 [facility] Comment on above: Order Comment: No: D o not add to previous draw Performed By: #### 1 0070, 77463, 69889, 21570, 62215, 32682 #### [facility] [address] [place] [address], [place] Urea nitrogen [Mass/Vol] 10 mg/dL Normal 7-25 [facility] Comment on above: Order Comment: No: D o not add to previous draw Performed By: #### 1 0070, 16440, 38407, 96670, 83611, 86282 #### [facility] [address] [place] [address], [facility] CBC W/DIFFon 04-02-2020 ABS BASOPHILS 0.0 10*3/uL Normal 0.0-0.2 [facility] Comment on above: Order Comment: No: D o not add to previous draw Performed By: #### 1 0070, 45604, 23341, 48098, 47226, 60793 #### [facility] [address] [place] [address], [facility] ABS IMM GRANS 0.0 10*3/uL Normal 0.0-0.2 [facility] Comment on above: Order Comment: No: D o not add to previous draw Performed By: #### 1 0070, 33556, 57743, 09276, 45944, 80720 #### [facility] [address] ABS NEUTROPHILS 4.5 10*3/uL Normal 1.6-7.6 [facility] Comment on above: Order Comment: No: D o not add to previous draw Performed By: #### 1 0070, 71522, 18483, 97380, 41294, 50697 #### [facility] [address] [place] [address], [facility] Basophils/100 WBC (Bld) 0.2 % Normal 0.0-1.0 [facility] Comment on above: Order Comment: No: D o not add to previous draw Performed By: #### 1 0070, 17931, 56312, 78509, 27569, 02423 #### [facility] [address] [place] [address], [facility] Eosinophils (Bld) [#/Vol] 0.2 10*3/uL Normal 0.0-0.5 [facility] Comment on above: Order Comment: No: D o not add to previous draw Performed By: #### 1 0070, 12940, 77538, 01948, 74300, 34077 #### [facility] [address] [place] [address], [facility] Eosinophils/100 WBC (Bld) 3.6 % Normal 0.0-6.0 [facility] Comment on above: Order Comment: No: D o not add to previous draw Performed By: #### 1 0070, 63321, 53487, 35584, 42889, 68594 #### [facility] [address] Erythrocyte distribution width (RBC) [Ratio] 12.7 % Normal 11.5-15.0 [facility] Comment on above: Order Comment: No: D o not add to previous draw Performed By: #### 1 0070, 90548, 30055, 28373, 72449, 42205 #### [facility] [address] Hematocrit (Bld) [Volume fraction] 42.9 % Normal 36.0-45.0 [facility] Comment on above: Order Comment: No: D o not add to previous draw Performed By: #### 1 0070, 82549, 85731, 41468, 63811, 85994 #### [facility] [address] [facility] [place] [address], [facility] Hemoglobin (Bld) [Mass/Vol] 13.5 g/dL Normal 12.0-15.0 [facility] Comment on above: Order Comment: No: D o not add to previous draw Performed By: #### 1 0070, 69843, 88756, 67014, 64845, 62193 #### [facility] [address] [address], [facility] IMMATURE GRANS 0.3 % Normal 0.0-1.0 [facility] Comment on above: Order Comment: No: D o not add to previous draw Performed By: #### 1 0070, 86134, 37413, 75997, 63337, 76802 #### [facility] [address] [place] [address], [facility] Lymphocytes (Bld) [#/Vol] 1.1 10*3/uL Low 1.2-4.0 [facility] Comment on above: Order Comment: No: D o not add to previous draw Performed By: #### 1 0070, 40017, 13645, 47018, 87290, 48528 #### [facility] [address] [place] [address], [facility] Lymphocytes/100 WBC (Bld) 18.0 % Low 20.0-45.0 [facility] Comment on above: Order Comment: No: D o not add to previous draw Performed By: #### 1 0070, 29367, 55894, 75691, 08838, 47972 #### [facility] [address] [place] [address], [facility] MCH (RBC) [Entitic mass] 27.4 pg Normal 27.0-33.0 [facility] Comment on above: Order Comment: No: D o not add to previous draw Performed By: #### 1 0070, 09471, 95579, 18225, 40617, 78352 #### [facility] [address] [place] [address], [facility] MCHC (RBC) [Mass/Vol] 31.5 g/dL Low 32.0-35.0 [facility] Comment on above: Order Comment: No: D o not add to previous draw Performed By: #### 1 0070, 34914, 38873, 66430, 55789, 56275 #### [facility] [address] [place] [address], [facility] MCV (RBC) [Entitic vol] 87.0 fL Normal 82.0-98.0 [facility] Comment on above: Order Comment: No: D o not add to previous draw Performed By: #### 1 0070, 13295, 41898, 05611, 20055, 75254 #### [facility] [address] [place] [address], [facility] Monocytes (Bld) [#/Vol] 0.3 10*3/uL Normal 0.1-1.0 [facility] Comment on above: Order Comment: No: D o not add to previous draw Performed By: #### 1 0070, 65795, 10409, 95921, 18514, 53016 #### [facility] [address] [place] [address], [facility] MONOS 5.5 % Normal 5.0-12.0 [facility] Comment on above: Order Comment: No: D o not add to previous draw Performed By: #### 1 0070, 72430, 71468, 34096, 69705, 13635 #### [facility] [address] [facility] [place] [address], [facility] Neutrophils/100 WBC (Bld) 72.4 % High 40.0-72.0 [facility] Comment on above: Order Comment: No: D o not add to previous draw Performed By: #### 1 0070, 05164, 16399, 45775, 87483, 65298 #### [facility] [address] [facility] [place] [address], [facility] Nucleated RBC/100 WBC (Bld) [Ratio] 0 % Normal 0-0 [facility] Comment on above: Order Comment: No: D o not add to previous draw Performed By: #### 1 0070, 73311, 83393, 93826, 38472, 47316 #### [facility] [address] [place] [address], [facility] PLAT CNT 264 10*3/uL Normal 150-400 [facility] Comment on above: Order Comment: No: D o not add to previous draw Performed By: #### 1 0070, 35883, 07191, 11285, 53048, 45589 #### [facility] [address] [place] [address], [facility] RBC (Bld) [#/Vol] 4.93 10*6/uL Normal 3.80-5.00 [facility] Comment on above: Order Comment: No: D o not add to previous draw Performed By: #### 1 0070, 82159, 20602, 15554, 19920, 43548 #### [facility] [address] [facility] [place] [address], [facility] WBC (Bld) [#/Vol] 6.17 10*3/uL Normal 4.00-10.60 [facility] Comment on above: Order Comment: No: D o not add to previous draw Performed By: #### 1 0070, 75188, 98910, 38779, 67363, 24247 #### [facility] [address] [place], [place] [id number] [place] [address] MAGNESIUM BLOODon 04-02-2020 Magnesium [Mass/Vol] 2.0 mg/dL Normal 1.9-2.7 [facility] Comment on above: Order Comment: No: D o not add to previous draw Performed By: #### 1 0070, 46012, 66424, 87377, 96341, 89429 #### [facility] [address] PHOSPHORUS BLOODon 0 Phosphate [Mass/Vol] 3.1 mg/dL Normal 2.5-5.0 [facility] Comment on above: Order Comment: No: D o not add to previous draw Performed By: #### 1 0070, 43845, 93983, 02364, 08726, 78591 #### [facility] [address] [facility] [place], [place] [id number] [place] [address] POC GLUCOSE LABon 04-02-2020 Glucose [Mass/Vol] 134 mg/dL High 70-100 [facility] Comment on above: Performed By: #### 1 0070, 56723, 89388, 62470, 64608, 04551 #### [facility] [address] UFH HEPARIN ASSAYon 04-02-20 20 UNFRACTIONATED HEPARIN 0.91 IU/mL Critically high 0.30-0.7 0 [facility] Comment on above: Result Comment: Violet roxaban and Apixaban will interfere with the anti Xa assay used to monitor UFH and LMWH. RESULTS CHECKED AND CALLED. ACCURATELY READ BACK BY LYNN POLANCO, RN @ 9255 Performed By: #### 1 0070, 75651, 28635, 77349, 02891, 66435 #### [facility] [address] ALBUMIN BLOODon 04-01-2020 Albumin [Mass/Vol] 3.0 g/dL Low 3.5-5.7 [facility] Comment on above: Performed By: #### 1 0070, 33140, 10441, 14710, 66622, 09221 #### [facility] [address] [facility] [address] BASIC METABOLIC PANELon Calcium [Mass/Vol] 8.1 mg/dL Low 8.6-10.3 [facility] Comment on above: Order Comment: No: D o not add to previous draw Performed By: #### 1 0070, 90643, 60281, 47705, 26102, 39556 #### [facility] [address] [facility] [place] [address], [facility] Chloride [Moles/Vol] 105 mmol/L Normal 98-107 [facility] Comment on above: Order Comment: No: D o not add to previous draw Performed By: #### 1 0070, 60588, 23515, 32666, 57900, 54680 #### [facility] [address] [facility] [place] [place] [address], [facility] CO2 [Moles/Vol] 26 mmol/L Normal 21-31 [facility] Comment on above: Order Comment: No: D o not add to previous draw Performed By: #### 1 0070, 03192, 36465, 21699, 40651, 11510 #### [facility] [address] [place] [address], [place] Creatinine [Mass/Vol] 0.65 mg/dL Normal 0.60-1.20 [facility] Comment on above: Order Comment: No: D o not add to previous draw Performed By: #### 1 0070, 22409, 73150, 31762, 97256, 30254 #### [facility] [address] [place] [address], [place] GFR/1.73 sq M predicted among blacks MDRD (S/P/Bld) [Vol rate/Area] mL/min/{1.73_m2} Normal >60 [facility] Comment on above: Order Comment: No: D o not add to previous draw Performed By: #### 1 0070, 05968, 63954, 62268, 68551, 44668 #### [facility] [address] [place] [address], [place] GFR/1.73 sq M predicted among non-blacks MDRD (S/P/Bld) [Vol rate/Area] mL/min/{1.73_m2} Normal >60 [facility] Comment on above: Order Comment: No: D o not add to previous draw Performed By: #### 1 0070, 62008, 50597, 38428, 09076, 07999 #### [facility] [address] [place] [address], [place] Glucose [Mass/Vol] 87 mg/dL Normal 70-100 [facility] Comment on above: Order Comment: No: D o not add to previous draw Performed By: #### 1 0070, 45073, 03325, 61579, 17677, 83931 #### [facility] [address] [place] [address], [place] Potassium [Moles/Vol] 4.3 mmol/L Normal 3.5-5.1 [facility] Comment on above: Order Comment: No: D o not add to previous draw Performed By: #### 1 0070, 03940, 87041, 39624, 92609, 68915 #### [facility] [address] Sodium [Moles/Vol] 136 mmol/L Normal 136-145 [facility] Comment on above: Order Comment: No: D o not add to previous draw Performed By: #### 1 0070, 15732, 61602, 73264, 84419, 00585 #### [facility] [address] Urea nitrogen [Mass/Vol] 8 mg/dL Normal 7-25 [facility] Comment on above: Order Comment: No: D o not add to previous draw Performed By: #### 1 0070, 18913, 43377, 07131, 35061, 20204 #### [facility] [address] CBC W/DIFFon 04-01-2020 ABS BASOPHILS 0.0 10*3/uL Normal 0.0-0.2 [facility] Comment on above: Order Comment: No: D o not add to previous draw Performed By: #### 1 0070, 87432, 93428, 56573, 62473, 96757 #### [facility] [address] ABS IMM GRANS 0.0 10*3/uL Normal 0.0-0.2 [facility] Comment on above: Order Comment: No: D o not add to previous draw Performed By: #### 1 0070, 77079, 15702, 44312, 33135, 96471 #### [facility] [address] ABS NEUTROPHILS 3.4 10*3/uL Normal 1.6-7.6 [facility] Comment on above: Order Comment: No: D o not add to previous draw Performed By: #### 1 0070, 74074, 78458, 79208, 21939, 23497 #### [facility] [address] [place] [address], [facility] Basophils/100 WBC (Bld) 0.2 % Normal 0.0-1.0 [facility] Comment on above: Order Comment: No: D o not add to previous draw Performed By: #### 1 0070, 67171, 12761, 64317, 35019, 44179 #### [facility] [address] [place] [address], [facility] Eosinophils (Bld) [#/Vol] 0.1 10*3/uL Normal 0.0-0.5 [facility] Comment on above: Order Comment: No: D o not add to previous draw Performed By: #### 1 0070, 43240, 46998, 35588, 26855, 86330 #### [facility] [address] [place] [address], [facility] Eosinophils/100 WBC (Bld) 2.6 % Normal 0.0-6.0 [facility] Comment on above: Order Comment: No: D o not add to previous draw Performed By: #### 1 0070, 54991, 99559, 25664, 80200, 19396 #### [facility] [address] [facility] [place] [address], [facility] Erythrocyte distribution width (RBC) [Ratio] 13.0 % Normal 11.5-15.0 [facility] Comment on above: Order Comment: No: D o not add to previous draw Performed By: #### 1 0070, 00439, 71909, 69087, 34986, 34274 #### [facility] [address] [place] [address], [place] Hematocrit (Bld) [Volume fraction] 40.9 % Normal 36.0-45.0 [facility] Comment on above: Order Comment: No: D o not add to previous draw Performed By: #### 1 0070, 27134, 12003, 73142, 07585, 44737 #### [facility] [address] [facility] [address], [facility] Hemoglobin (Bld) [Mass/Vol] 12.8 g/dL Normal 12.0-15.0 [facility] Comment on above: Order Comment: No: D o not add to previous draw Performed By: #### 1 0070, 17898, 98906, 17483, 81967, 47504 #### [facility] [address] [place] [address], [facility] IMMATURE GRANS 0.6 % Normal 0.0-1.0 [facility] Comment on above: Order Comment: No: D o not add to previous draw Performed By: #### 1 0070, 23937, 11604, 28325, 83209, 53871 #### [facility] [address] Lymphocytes (Bld) [#/Vol] 1.2 10*3/uL Normal 1.2-4.0 [facility] Comment on above: Order Comment: No: D o not add to previous draw Performed By: #### 1 0070, 65166, 20748, 52171, 03470, 94662 #### [facility] [address] Lymphocytes/100 WBC (Bld) 23.7 % Normal 20.0-45.0 [facility] Comment on above: Order Comment: No: D o not add to previous draw Performed By: #### 1 0070, 45275, 92850, 89727, 46291, 15838 #### [facility] [address] [facility] [place] [address], [facility] MCH (RBC) [Entitic mass] 27.4 pg Normal 27.0-33.0 [facility] Comment on above: Order Comment: No: D o not add to previous draw Performed By: #### 1 0070, 12491, 87752, 62188, 53573, 96535 #### [facility] [address] MCHC (RBC) [Mass/Vol] 31.3 g/dL Low 32.0-35.0 [facility] Comment on above: Order Comment: No: D o not add to previous draw Performed By: #### 1 0070, 13642, 50297, 93800, 83143, 56924 #### [facility] [address] [place] [address], [facility] MCV (RBC) [Entitic vol] 87.6 fL Normal 82.0-98.0 [facility] Comment on above: Order Comment: No: D o not add to previous draw Performed By: #### 1 0070, 22934, 11292, 44493, 54547, 90250 #### [facility] [address] [facility] [address], [facility] Monocytes (Bld) [#/Vol] 0.3 10*3/uL Normal 0.1-1.0 [facility] Comment on above: Order Comment: No: D o not add to previous draw Performed By: #### 1 0070, 30314, 08757, 96179, 45942, 14132 #### [facility] [address] [facility] [address] MONOS 5.4 % Normal 5.0-12.0 [facility] Comment on above: Order Comment: No: D o not add to previous draw Performed By: #### 1 0070, 22259, 80203, 39215, 30106, 53063 #### [facility] [address] [place] [address], [facility] Neutrophils/100 WBC (Bld) 67.5 % Normal 40.0-72.0 [facility] Comment on above: Order Comment: No: D o not add to previous draw Performed By: #### 1 0070, 90883, 41744, 41061, 35450, 44374 #### [facility] [address] [facility] [place] [address], [facility] Nucleated RBC/100 WBC (Bld) [Ratio] 0 % Normal 0-0 [facility] Comment on above: Order Comment: No: D o not add to previous draw Performed By: #### 1 0070, 63154, 78967, 48947, 67006, 64294 #### [facility] [address] [facility] [place] [address], [facility] PLAT CNT 237 10*3/uL Normal 150-400 [facility] Comment on above: Order Comment: No: D o not add to previous draw Performed By: #### 1 0070, 25808, 97774, 56965, 84024, 09360 #### [facility] [address] [place] [address], [facility] RBC (Bld) [#/Vol] 4.67 10*6/uL Normal 3.80-5.00 [facility] Comment on above: Order Comment: No: D o not add to previous draw Performed By: #### 1 0070, 05252, 85387, 78469, 27524, 00575 #### [facility] [address] [place] [address], [facility] WBC (Bld) [#/Vol] 4.98 10*3/uL Normal 4.00-10.60 [facility] Comment on above: Order Comment: No: D o not add to previous draw Performed By: #### 1 0070, 18283, 69774, 22158, 76397, 82019 #### [facility] [address] [place] [address], [facility] CHEST AND LATERALon 04-01-20 20 CHEST AND LATERAL [facility] Department of Radiology [address] [place] [id number] Patient Name: EMIGDIO ELI : 1965 Sex: F Age: Race: White Pt. Location: [id number] Patient Status: I Ordered Date: 04/01/2020 7:00:00 [...] reports Electronically signed: Shari Salcedo. Transcribed by: [email or web address], User Resident: ANNE VEGA Electronically Signed by: SHARI SALCEDO @ 04/01/2020 10:12 AM I personally read this/these film(s) with this resident Normal [facility] Comment on above: Order Comment: No: D o not add to previous draw MAGNESIUM BLOODon 04-01-2020 Magnesium [Mass/Vol] 2.1 mg/dL Normal 1.9-2.7 [facility] Comment on above: Order Comment: No: D o not add to previous draw Performed By: #### 1 0070, 69772, 90654, 31012, 06607, 87641 #### [facility] [address] APTTon 03-31-2020 aPTT Coag (Bld) [Time] 28.3 s Normal 25.0-35.0 Th e [facility] Comment on above: Order Comment: No: D [...] THIS PURPOSE. Performed By: #### 1 0070, 30475, 10108, 89684, 37216, 55209 #### [facility] [address] BASIC METABOLIC PANELon 03-04 Calcium [Mass/Vol] 7.8 mg/dL Low 8.6-10.3 [facility] Comment on above: Order Comment: No: D o not add to previous draw Performed By: #### 1 0070, 23318, 46471, 36782, 16091, 32400 #### [facility] [address] [place] [address], [facility] Chloride [Moles/Vol] 108 mmol/L High 98-107 [facility] Comment on above: Order Comment: No: D o not add to previous draw Performed By: #### 1 0070, 00599, 03840, 12838, 80117, 73469 #### [facility] [address] [place] [address], [place] CO2 [Moles/Vol] 26 mmol/L Normal 21-31 [facility] Comment on above: Order Comment: No: D o not add to previous draw Performed By: #### 1 0070, 59279, 61985, 70419, 75376, 68591 #### [facility] [address] [place] [address], [place] Creatinine [Mass/Vol] 0.76 mg/dL Normal 0.60-1.20 [facility] Comment on above: Order Comment: No: D o not add to previous draw Performed By: #### 1 0070, 75676, 50096, 89760, 22986, 00888 #### [facility] [address] [place] [address], [place] GFR/1.73 sq M predicted among blacks MDRD (S/P/Bld) [Vol rate/Area] mL/min/{1.73_m2} Normal >60 [facility] Comment on above: Order Comment: No: D o not add to previous draw Performed By: #### 1 0070, 24613, 40194, 94318, 92932, 01861 #### [facility] [address] [place] [address], [place] GFR/1.73 sq M predicted among non-blacks MDRD (S/P/Bld) [Vol rate/Area] mL/min/{1.73_m2} Normal >60 [facility] Comment on above: Order Comment: No: D o not add to previous draw Performed By: #### 1 0070, 68906, 44968, 78328, 64968, 42142 #### [facility] [address] [place] [address], [place] Glucose [Mass/Vol] 97 mg/dL Normal 70-100 [facility] Comment on above: Order Comment: No: D o not add to previous draw Performed By: #### 1 0070, 73082, 28616, 03460, 95682, 34493 #### [facility] [address] Potassium [Moles/Vol] 3.2 mmol/L Low 3.5-5.1 [facility] Comment on above: Order Comment: No: D o not add to previous draw Performed By: #### 1 0070, 52203, 95711, 73845, 02084, 00787 #### [facility] [address] Sodium [Moles/Vol] 140 mmol/L Normal 136-145 [facility] Comment on above: Order Comment: No: D o not add to previous draw Performed By: #### 1 0070, 10050, 45922, 76871, 33171, 77643 #### [facility] [address] Urea nitrogen [Mass/Vol] 15 mg/dL Normal 7-25 [facility] Comment on above: Order Comment: No: D o not add to previous draw Performed By: #### 1 0070, 02539, 85586, 86713, 99075, 05566 #### [facility] [address] CBC W/DIFFon 03-31-2020 ABS BASOPHILS 0.0 10*3/uL Normal 0.0-0.2 [facility] Comment on above: Order Comment: No: D o not add to previous draw Performed By: #### 1 0070, 18848, 06381, 69119, 24166, 39390 #### [facility] [address] ABS IMM GRANS 0.0 10*3/uL Normal 0.0-0.2 [facility] Comment on above: Order Comment: No: D o not add to previous draw Performed By: #### 1 0070, 70508, 01355, 53306, 92759, 74966 #### [facility] [address] [place] [address], [facility] ABS NEUTROPHILS 3.2 10*3/uL Normal 1.6-7.6 [facility] Comment on above: Order Comment: No: D o not add to previous draw Performed By: #### 1 0070, 48989, 17035, 23906, 05261, 00181 #### [facility] [address] [place] [address], [facility] Basophils/100 WBC (Bld) 0.2 % Normal 0.0-1.0 [facility] Comment on above: Order Comment: No: D o not add to previous draw Performed By: #### 1 0070, 46541, 14748, 80738, 85414, 40978 #### [facility] [address] [facility] [place] [address], [facility] Eosinophils (Bld) [#/Vol] 0.0 10*3/uL Normal 0.0-0.5 [facility] Comment on above: Order Comment: No: D o not add to previous draw Performed By: #### 1 0070, 19635, 27415, 95499, 83837, 26635 #### [facility] [address] [facility] [place] [address], [facility] Eosinophils/100 WBC (Bld) 0.4 % Normal 0.0-6.0 [facility] Comment on above: Order Comment: No: D o not add to previous draw Performed By: #### 1 0070, 11731, 45702, 71355, 07825, 96303 #### [facility] [address] [facility] [place] [address], [facility] Erythrocyte distribution width (RBC) [Ratio] 13.0 % Normal 11.5-15.0 [facility] Comment on above: Order Comment: No: D o not add to previous draw Performed By: #### 1 0070, 64755, 20750, 69163, 57254, 10774 #### [facility] [address] [place] [address], [facility] Hematocrit (Bld) [Volume fraction] 34.4 % Low 36.0-45.0 [facility] Comment on above: Order Comment: No: D o not add to previous draw Performed By: #### 1 0070, 12409, 13502, 43141, 65182, 28730 #### [facility] [address] [place] [address], [facility] Hemoglobin (Bld) [Mass/Vol] 10.8 g/dL Low 12.0-15.0 [facility] Comment on above: Order Comment: No: D o not add to previous draw Performed By: #### 1 0070, 88506, 72381, 14938, 63344, 00676 #### [facility] [address] [address], [facility] IMMATURE GRANS 0.4 % Normal 0.0-1.0 [facility] Comment on above: Order Comment: No: D o not add to previous draw Performed By: #### 1 0070, 33430, 55663, 95621, 94971, 45637 #### [facility] [address] [facility] [place] [address], [facility] Lymphocytes (Bld) [#/Vol] 1.2 10*3/uL Normal 1.2-4.0 [facility] Comment on above: Order Comment: No: D o not add to previous draw Performed By: #### 1 0070, 26370, 56183, 92988, 37135, 90762 #### [facility] [address] [place] [address], [facility] Lymphocytes/100 WBC (Bld) 25.7 % Normal 20.0-45.0 [facility] Comment on above: Order Comment: No: D o not add to previous draw Performed By: #### 1 0070, 14128, 63996, 91775, 14303, 96540 #### [facility] [address] [place] [address], [facility] MCH (RBC) [Entitic mass] 27.5 pg Normal 27.0-33.0 [facility] Comment on above: Order Comment: No: D o not add to previous draw Performed By: #### 1 0070, 28468, 56996, 04615, 38791, 58631 #### [facility] [address] [place] [address], [facility] MCHC (RBC) [Mass/Vol] 31.4 g/dL Low 32.0-35.0 [facility] Comment on above: Order Comment: No: D o not add to previous draw Performed By: #### 1 0070, 47669, 80116, 98858, 95388, 84674 #### [facility] [address] [facility] [place] [address], [facility] MCV (RBC) [Entitic vol] 87.5 fL Normal 82.0-98.0 [facility] Comment on above: Order Comment: No: D o not add to previous draw Performed By: #### 1 0070, 85319, 81308, 08688, 38029, 97622 #### [facility] [address] [place] [address], [facility] Monocytes (Bld) [#/Vol] 0.3 10*3/uL Normal 0.1-1.0 [facility] Comment on above: Order Comment: No: D o not add to previous draw Performed By: #### 1 0070, 35063, 60036, 84397, 46482, 27033 #### [facility] [address] [address], [facility] MONOS 6.2 % Normal 5.0-12.0 [facility] Comment on above: Order Comment: No: D o not add to previous draw Performed By: #### 1 0070, 16211, 14259, 65779, 07008, 83103 #### [facility] [address] [place] [address], [facility] Neutrophils/100 WBC (Bld) 67.1 % Normal 40.0-72.0 [facility] Comment on above: Order Comment: No: D o not add to previous draw Performed By: #### 1 0070, 11199, 24388, 29193, 89091, 57455 #### [facility] [address] [place] [address], [facility] Nucleated RBC/100 WBC (Bld) [Ratio] 0 % Normal 0-0 [facility] Comment on above: Order Comment: No: D o not add to previous draw Performed By: #### 1 0070, 23689, 23959, 35364, 68424, 04522 #### [facility] [address] [facility] [place] [address], [facility] PLAT CNT 210 10*3/uL Normal 150-400 [facility] Comment on above: Order Comment: No: D o not add to previous draw Performed By: #### 1 0070, 83810, 75208, 77117, 83127, 81681 #### [facility] [address] [facility] [place] [address], [facility] RBC (Bld) [#/Vol] 3.93 10*6/uL Normal 3.80-5.00 [facility] Comment on above: Order Comment: No: D o not add to previous draw Performed By: #### 1 0070, 89250, 86563, 64469, 35065, 34003 #### [facility] [address] [place] [address], [facility] WBC (Bld) [#/Vol] 4.71 10*3/uL Normal 4.00-10.60 [facility] Comment on above: Order Comment: No: D o not add to previous draw Performed By: #### 1 0070, 40242, 19698, 05577, 80589, 44050 #### [facility] [address] Cardiovascular Lab Reporton 03-31-2020 Cardiovascular Lab Report [facility] Patient Name: Paulie [facility] S MR #: [id number] Department of Physician: Rebecca Weaver M.D. Medicine Service Date: 03/31/2020 Division of Birthdate: 1965 Cardiology Room #: 3AB [id number] Adult Cardiovascular Services [facility] [address] [place], [place] [address] Cardiovascular Laboratory Report INDICATIONS FOR PACEMAKER PLACEMENT: [...] Weaver M.D. Date Trans: 03/31/2020 03:35 P/jamal [id number] cc: Tony Hines M.D. Heart Failure/ Transplant Mailstop [address] [place] [address] Normal [facility] MAGNESIUM BLOODon 03-31-2020 Magnesium [Mass/Vol] 1.8 mg/dL Low 1.9-2.7 [facility] Comment on above: Order Comment: No: D o not add to previous draw Performed By: #### 1 0070, 27075, 27529, 00374, 02480, 07530 #### [facility] [address] [facility] [place] [address], [facility] PHOSPHORUS BLOODon 0 Phosphate [Mass/Vol] 2.7 mg/dL Normal 2.5-5.0 [facility] Comment on above: Order Comment: No: D o not add to previous draw Performed By: #### 1 0070, 30800, 02805, 99173, 00515, 16607 #### [facility] [address] PROTHROMBIN TIMEon 0 INR Coag (PPP) [Relative time] 1.11 {INR} Normal 0.91-1.16 [facility] Comment on above: Order Comment: No: D [...] CHEST 1995;108:[id number]. Performed By: #### 1 0070, 38491, 78404, 01465, 54034, 42946 #### [facility] [address] PT Coag (PPP) [Time] 14.3 s Normal 12.3-14.8 [facility] Comment on above: Order Comment: No: D o not add to previous draw Result Comment: ALL RESULTS MUST BE INTERPRETED WITH RESPECT TO BLOOD DRAWING ARTIFACT OR DILUTION ERROR OF ANTICOAGULANT AT THE TIME OF SAMPLING. Performed By: #### 1 0070, 45434, 67526, 36194, 71094, 66372 #### [facility] [address] *SARS-CoV-2 COVID-19on 03-30 [id number] Not Detected Normal Not Detected [facility] Comment on above: Order Comment: No: D o not add to previous draw Performed By: #### 1 0070, 60650, 53631, 02977, 66180, 38432 #### [facility] [address] APTTon 03-30-2020 aPTT Coag (Bld) [Time] 24.9 s Low 25.0-35.0 Th e [facility] Comment on above: Order Comment: No: D [...] THIS PURPOSE. Performed By: #### 5 7307, 01283 #### [facility] [address] [facility]. [address] BASIC METABOLIC PANELon 03-03 Calcium [Mass/Vol] 8.9 mg/dL Normal 8.6-10.3 [facility] Comment on above: Order Comment: No: D o not add to previous draw Performed By: #### 1 0070, 45641, 14249, 80246, 27526, 92897 #### [facility] [address] [facility] [place] [place] [address], [facility] Chloride [Moles/Vol] 110 mmol/L High 98-107 [facility] Comment on above: Order Comment: No: D o not add to previous draw Performed By: #### 1 0070, 27681, 77937, 66505, 68969, 40627 #### [facility] [address] [facility] [place] [place] [address], [facility] CO2 [Moles/Vol] 26 mmol/L Normal 21-31 [facility] Comment on above: Order Comment: No: D o not add to previous draw Performed By: #### 1 0070, 22307, 57509, 41530, 57220, 66820 #### [facility] [address] [place] [address], [place] Creatinine [Mass/Vol] 0.86 mg/dL Normal 0.60-1.20 [facility] Comment on above: Order Comment: No: D o not add to previous draw Performed By: #### 1 0070, 80737, 87356, 48758, 39607, 43871 #### [facility] [address] [place] [address], [place] GFR/1.73 sq M predicted among blacks MDRD (S/P/Bld) [Vol rate/Area] mL/min/{1.73_m2} Normal >60 [facility] Comment on above: Order Comment: No: D o not add to previous draw Performed By: #### 1 0070, 03789, 00113, 79079, 46801, 72167 #### [facility] [address] [place] [address], [facility] GFR/1.73 sq M predicted among non-blacks MDRD (S/P/Bld) [Vol rate/Area] mL/min/{1.73_m2} Normal >60 [facility] Comment on above: Order Comment: No: D o not add to previous draw Performed By: #### 1 0070, 59365, 33655, 81460, 48625, 47182 #### [facility] [address] [place] [address], [place] Glucose [Mass/Vol] 119 mg/dL High 70-100 [facility] Comment on above: Order Comment: No: D o not add to previous draw Performed By: #### 1 0070, 61031, 52913, 61117, 55075, 81296 #### [facility] [address] [place] [address], [place] Potassium [Moles/Vol] 3.5 mmol/L Normal 3.5-5.1 [facility] Comment on above: Order Comment: No: D o not add to previous draw Performed By: #### 1 0070, 45919, 48335, 56768, 75780, 35325 #### [facility] [address] [facility]. [address] Sodium [Moles/Vol] 142 mmol/L Normal 136-145 [facility] Comment on above: Order Comment: No: D o not add to previous draw Performed By: #### 1 0070, 42574, 64446, 70240, 83488, 28946 #### [facility] [address] Urea nitrogen [Mass/Vol] 13 mg/dL Normal 7-25 [facility] Comment on above: Order Comment: No: D o not add to previous draw Performed By: #### 1 0070, 33177, 01566, 04364, 22557, 36077 #### [facility] [address] [facility]. [address] CBC W/DIFFon 03-30-2020 ABS BASOPHILS 0.0 10*3/uL Normal 0.0-0.2 [facility] Comment on above: Performed By: #### 5 0103 #### [facility] [address] ABS IMM GRANS 0.0 10*3/uL Normal 0.0-0.2 [facility] Comment on above: Performed By: #### 5 0103 #### [facility] [address] ABS NEUTROPHILS 5.7 10*3/uL Normal 1.6-7.6 [facility] Comment on above: Performed By: #### 5 3 #### [facility] [address] Basophils/100 WBC (Bld) 0.0 % Normal 0.0-1.0 [facility] Comment on above: Performed By: #### 5 3 #### [facility] [address] Eosinophils (Bld) [#/Vol] 0.0 10*3/uL Normal 0.0-0.5 [facility] Comment on above: Performed By: #### 5 0103 #### [facility] [address] Eosinophils/100 WBC (Bld) 0.0 % Normal 0.0-6.0 [facility] Comment on above: Performed By: #### 3 #### [facility] [address] Erythrocyte distribution width (RBC) [Ratio] 12.9 % Normal 11.5-15.0 [facility] Comment on above: Performed By: #### 102 #### [facility] [address] Hematocrit (Bld) [Volume fraction] 36.1 % Normal 36.0-45.0 [facility] Comment on above: Performed By: #### 5 3 #### [facility] [address] Hemoglobin (Bld) [Mass/Vol] 11.5 g/dL Low 12.0-15.0 [facility] Comment on above: Performed By: #### 5 3 #### [facility] [address] IMMATURE GRANS 0.5 % Normal 0.0-1.0 [facility] Comment on above: Performed By: #### 3 #### [facility] [address] Lymphocytes (Bld) [#/Vol] 0.6 10*3/uL Low 1.2-4.0 [facility] Comment on above: Performed By: #### 5 3 #### [facility] [address] [facility] [place] [address], [facility] Lymphocytes/100 WBC (Bld) 9.3 % Low 20.0-45.0 [facility] Comment on above: Performed By: #### 102 #### [facility] [address] [facility] [place] [address], [facility] MCH (RBC) [Entitic mass] 27.4 pg Normal 27.0-33.0 [facility] Comment on above: Performed By: #### 102 #### [facility] [address] [facility] [place] [place] [address], [facility] MCHC (RBC) [Mass/Vol] 31.9 g/dL Low 32.0-35.0 [facility] Comment on above: Performed By: #### 102 #### [facility] [address] [facility] [place] [address], [facility] MCV (RBC) [Entitic vol] 86.0 fL Normal 82.0-98.0 [facility] Comment on above: Performed By: #### 102 #### [facility] [address] [facility] [place] [place] [address], [facility] Monocytes (Bld) [#/Vol] 0.2 10*3/uL Normal 0.1-1.0 [facility] Comment on above: Performed By: #### 102 #### [facility] [address] [facility] [place] [place] [address], [facility] MONOS 2.5 % Low 5.0-12.0 [facility] Comment on above: Performed By: #### 3 #### [facility] [address] [facility] [place] [place] [address], [facility] Neutrophils/100 WBC (Bld) 87.7 % High 40.0-72.0 [facility] Comment on above: Performed By: #### 102 #### [facility] [address] Nucleated RBC/100 WBC (Bld) [Ratio] 0 % Normal 0-0 [facility] Comment on above: Performed By: #### 5 0103 #### [facility] [address] [facility] [place] [place] [address], [facility] PLAT CNT 261 10*3/uL Normal 150-400 [facility] Comment on above: Performed By: #### 5 0103 #### [facility] [address] [place] [address], [facility] RBC (Bld) [#/Vol] 4.20 10*6/uL Normal 3.80-5.00 [facility] Comment on above: Performed By: #### 5 0103 #### [facility] [address] [facility] [place] [place] [address], [facility] WBC (Bld) [#/Vol] 6.47 10*3/uL Normal 4.00-10.60 [facility] Comment on above: Performed By: #### 5 0103 #### [facility] [address] FREE T4on 03-30-2020 Free T4 [Mass/Vol] 1.48 ng/dL Normal 0.71-1.85 [facility] Comment on above: Performed By: #### 1 0070, 38413, 27356, 93303, 74694, 21638 #### [facility] [address] [place] [address], [facility] MAGNESIUM BLOODon 03-30-2020 Magnesium [Mass/Vol] 2.0 mg/dL Normal 1.9-2.7 [facility] Comment on above: Order Comment: No: D o not add to previous draw Performed By: #### 1 0070, 64582, 40528, 07883, 13350, 96315 #### [facility] [address] [place] [address], [facility] PHOSPHORUS BLOODon 0 Phosphate [Mass/Vol] 2.8 mg/dL Normal 2.5-5.0 [facility] Comment on above: Order Comment: No: D o not add to previous draw Performed By: #### 1 0070, 69563, 72592, 36923, 50011, 38932 #### [facility] [address] [place] [address], [facility] PROTHROMBIN TIMEon 0 INR Coag (PPP) [Relative time] 1.21 {INR} High 0.91-1.16 [facility] Comment on above: Order Comment: No: D [...] CHEST 1995;108:231S-246S. Performed By: #### 5 7307, 65064 #### [facility] [address] [facility] [address] PT Coag (PPP) [Time] 15.4 s High 12.3-14.8 [facility] Comment on above: Order Comment: No: D o not add to previous draw Result Comment: ALL RESULTS MUST BE INTERPRETED WITH RESPECT TO BLOOD DRAWING ARTIFACT OR DILUTION ERROR OF ANTICOAGULANT AT THE TIME OF SAMPLING. Performed By: #### 5 7307, 87404 #### [facility] [address] [place] [address], [facility] TROPONIN-Ion 03-30-2020 Troponin I.cardiac [Mass/Vol] 0.02 ng/mL Normal 0.00-0.04 [facility] Comment on above: Order Comment: No: D o not add to previous draw Result Comment: REFE RENCE RANGES: 0.00 - 0.04 ng/ml NORMAL 0.05 - 0.50 ng/ml INDETERMINATE > 0.50 ng/ml CONSISTENT WITH AN M.I. Performed By: #### 1 0070, 59882, 98295, 93114, 93605, 83954 #### [facility] [address] Troponin I.cardiac [Mass/Vol] 0.04 ng/mL Normal 0.00-0.04 [facility] Comment on above: Order Comment: No: D o not add to previous draw Result Comment: REFE RENCE RANGES: 0.00 - 0.04 ng/ml NORMAL 0.05 - 0.50 ng/ml INDETERMINATE > 0.50 ng/ml CONSISTENT WITH AN M.I. Performed By: #### 3 5200 #### [facility] [address] Troponin I.cardiac [Mass/Vol] 0.04 ng/mL Normal 0.00-0.04 [facility] Comment on above: Order Comment: No: D o not add to previous draw Result Comment: REFE RENCE RANGES: 0.00 - 0.04 ng/ml NORMAL 0.05 - 0.50 ng/ml INDETERMINATE > 0.50 ng/ml CONSISTENT WITH AN M.I. Performed By: #### 1 0070, 05914, 07380, 84302, 28689, 11040 #### [facility] [address] TSH3 WITH REFLEX FT4on 03-30 TSH 3RD GENERATION 0.02 uIU/mL Low 0.34-5.60 [facility] Comment on above: Performed By: #### 1 0070, 99179, 33616, 24124, 53837, 34577 #### [facility] [address] [place] [address], [facility] Vital Signs Date Time Vital Sign Value Performing Clinician Patrick chen 06-13-2024 12:13-0400 Body height 152.3 cm Zoila Monae MD Work Phone: [facility] 06-13-2024 12:13-0400 Body mass index (BMI) [Ratio] 19.98 kg/m2 Zoila Monae MD Work Phone: [facility] 06-13-2024 12:13-0400 Body weight 46.35 kg Zoila Monae MD Work Phone: [facility] 06-13-2024 12:13-0400 Diastolic blood pressure 77 mm[Hg] Zoila Monae MD Work Phone: [facility] 06-13-2024 12:13-0400 Heart rate 74 /min Zoila Monae MD Work Phone: [facility] 06-13-2024 12:13-0400 Systolic blood pressure 107 mm[Hg] Zoila Monae MD Work Phone: [facility] 03-06-2024 13:46-0400 Body height 153.5 cm Zoila Monae MD Work Phone: [facility] 03-06-2024 13:46-0400 Body mass index (BMI) [Ratio] 19.1 kg/m2 Zoila Monae MD Work Phone: [facility] 03-06-2024 13:46-0400 Body temperature 97.2 [degF] Zoila Monae MD Work Phone: [facility] 03-06-2024 13:46-0400 Body weight 45 kg Zoila Monae MD Work Phone: [facility] 03-06-2024 13:46-0400 Diastolic blood pressure 68 mm[Hg] Zoila Monae MD Work Phone: [facility] 03-06-2024 13:46-0400 Heart rate 106 /min Zoila Monae MD Work Phone: [facility] 03-06-2024 13:46-0400 Systolic blood pressure 101 mm[Hg] Zoila Monae MD Work Phone: [facility] 08-12-2022 15:32-0500 Body temperature 98.1 [degF] MD Tony Amaya Work Phone: [facility] 08-12-2022 15:32-0500 Diastolic blood pressure 69 mm[Hg] MD Tony Amaya Work Phone: [facility] 08-12-2022 15:32-0500 Heart rate 78 /min MD Tony Amaya Work Phone: [facility] 08-12-2022 15:32-0500 Respiratory rate 16 /min MD Tony Amaya Work Phone: [facility] 08-12-2022 15:32-0500 SaO2% (BldA) [Mass fraction] 94 % MD Tony Amaya Work Phone: [facility] 08-12-2022 15:32-0500 Systolic blood pressure 129 mm[Hg] MD Tony Amaya Work Phone: [facility] 08-12-2022 11:00-0500 Inhaled oxygen flow rate 3 L/min MD Tony Amaya Work Phone: [facility] 08-11-2022 12:39-0500 Body height 152.4 cm MD Tony Amaya Work Phone: [facility] 08-11-2022 06:00-0500 Body weight 44.9 kg MD Tony Amaya Work Phone: [facility] 08-10-2022 15:03-0500 Body mass index (BMI) [Ratio] 19.1 kg/m2 MD Tony Amaya Work Phone: [facility] 08-03-2022 14:78-0401 Body weight 0 kg MD Tony Amaya Work Phone: [facility] Encounters Encounter Date Encounter Type Care Provider Facility Start: 11-29-2024 End: 11-29-2024 ambulatory DARRYL GOODE [facility] Start: 11-28-2024 End: 11-28-2024 Patient encounter procedure Damirgallito Sam DO Work Phone: [facility] Comment on above: Numbness and tinglin g in left hand Start: 11-28-2024 End: 11-28-2024 ambulatory MONIKA VARGAS Not Available Start: 11-26-2024 End: 11-26-2024 ambulatory Tony Amaya MD Work Phone: [facility] Work Phone: Start: 11-26-2024 End: 11-26-2024 Departed Referred Tony Amaya MD Work Phone: [facility] Start: 11-14-2024 ambulatory Alejandromatt Maciel Facility:[facility] Start: 11-14-2024 Registered Recurring Tony berry MD Work Phone: [facility] Start: 11-11-2024 End: 11-11-2024 Bamboo flowsheet Zulema Mackay WEIGHT LOSS PHYSICIAN Work Phone: [facility] Start: 11-11-2024 End: 11-11-2024 Bamboo flowsheet Zulema Mackay WEIGHT LOSS PHYSICIAN Work Phone: [facility] Start: 11-11-2024 End: 11-11-2024 ambulatory ZULEMA MACKAY Not Available Start: 11-11-2024 End: 11-11-2024 Office outpatient visit 15 minutes Zulema Mackay WEIGHT LOSS PHYSICIAN Work Phone: [facility] Comment on above: Closed nondisplaced fracture of base of fifth metacarpal bone of left hand with routine healing, subsequent encounter (Primary Dx); Closed nondisplaced fracture of right patella with routine healing, unspecified fracture morphology, subsequent encounter; Numbness and tingling in left hand Start: 11-08-2024 End: 11-08-2024 Bamboo flowsheet Zehra Bunch OT Work Phone: [facility] Start: 11-08-2024 End: 11-08-2024 Bamboo flowsheet Zehra Bunch OT Work Phone: [facility] Start: 11-08-2024 End: 11-08-2024 ambulatory Zehra Bunch OT Work Phone: [facility] Comment on above: Finger stiffness, le ft (Primary Dx) Start: 11-05-2024 End: 11-05-2024 Bamboo zia Bunch OT Work Phone: [facility] Start: 11-05-2024 End: 11-05-2024 Bamboo zia Bunch OT Work Phone: [facility] Start: 11-05-2024 End: 11-05-2024 ambulatory Zehra Bunch OT Work Phone: [facility] Comment on above: Finger stiffness, le ft (Primary Dx) Start: 11-01-2024 End: 11-01-2024 Telephone encounter Zehra Bunch OT Work Phone: [facility] Comment on above: CX OT today Start: 10-29-2024 End: 10-29-2024 Bamboo zia Bunch OT Work Phone: [facility] Start: 10-29-2024 End: 10-29-2024 Bamboo flowsheet Zehra Bunch OT Work Phone: [facility] Start: 10-29-2024 End: 10-29-2024 ambulatory Zehra Bunch OT Work Phone: [facility] Comment on above: Finger stiffness, le ft (Primary Dx) Start: 10-25-2024 End: 10-25-2024 Bamboo zia Bunch OT Work Phone: [facility] Start: 10-25-2024 End: 10-25-2024 Bamboo flowsheet Zehra Bunch OT Work Phone: [facility] Start: 10-25-2024 End: 10-25-2024 ambulatory Zehra Bunch OT Work Phone: [facility] Comment on above: Finger stiffness, le ft (Primary Dx) Start: 10-22-2024 End: 10-22-2024 Bamboo flowsheet Zehra Bunch OT Work Phone: [facility] Start: 10-22-2024 End: 10-22-2024 Bamboo flowsheet Zehra Bunch OT Work Phone: [facility] Start: 10-22-2024 End: 10-22-2024 ambulatory Zehra Bunch OT Work Phone: [facility] Comment on above: Finger stiffness, le ft (Primary Dx); Closed nondisplaced fracture of base of fifth metacarpal bone of left hand with routine healing, subsequent encounter Start: 10-08-2024 End: 10-08-2024 Telephone encounter Zehra Bunch OT Work Phone: [facility] Comment on above: OT Initial Eval Start: 10-07-2024 End: 10-07-2024 Bamboo flowsheet Zulema Mackay WEIGHT LOSS PHYSICIAN Work Phone: [facility] Start: 10-07-2024 End: 10-07-2024 Bamboo flowsheet Zulema Smith Apling WEIGHT LOSS PHYSICIAN Work Phone: [facility] Start: 10-07-2024 End: 10-07-2024 ambulatory ZULEMA Smith APLING Not Available Start: 10-07-2024 End: 10-07-2024 Office outpatient visit 10 minutes Zulema Mackay WEIGHT LOSS PHYSICIAN Work Phone: [facility] Comment on above: Closed nondisplaced fracture of base of fifth metacarpal bone of left hand with routine healing, subsequent encounter (Primary Dx); Closed nondisplaced fracture of right patella with routine healing, unspecified fracture morphology, subsequent encounter Start: 09-16-2024 End: 09-16-2024 Bamboo flowsheet Zulema B Apling WEIGHT LOSS PHYSICIAN Work Phone: [facility] Start: 09-16-2024 End: 09-16-2024 Bamboo flowsheet Zulema B Apling WEIGHT LOSS PHYSICIAN Work Phone: [facility] Start: 09-16-2024 End: 09-16-2024 Postop follow up visit related to original px Zulema B Apling WEIGHT LOSS PHYSICIAN Work Phone: [facility] Comment on above: Closed nondisplaced fracture of base of fifth metacarpal bone of left hand with routine healing, subsequent encounter (Primary Dx); Closed nondisplaced fracture of right patella with routine healing, unspecified fracture morphology, subsequent encounter Start: 09-16-2024 End: 09-16-2024 ambulatory ZULEMA B APLING Not Available Start: 08-19-2024 End: 08-19-2024 Bamboo flowsheet Zulema B Apling WEIGHT LOSS PHYSICIAN Work Phone: [facility] Start: 08-19-2024 End: 08-19-2024 Bamboo flowsheet Zulema B Apling WEIGHT LOSS PHYSICIAN Work Phone: [facility] Start: 08-19-2024 End: 08-19-2024 ambulatory ZULEMA B APLING Not Available Start: 08-19-2024 End: 08-19-2024 Postop follow up visit related to original px Zulema B Apling WEIGHT LOSS PHYSICIAN Work Phone: [facility] Comment on above: Right elbow pain (Pr imary Dx); Closed nondisplaced fracture of base of fifth metacarpal bone of left hand with routine healing, subsequent encounter Start: 08-07-2024 End: 08-07-2024 Bamboo flowsheet Zulema B Apling WEIGHT LOSS PHYSICIAN Work Phone: [facility] Start: 08-07-2024 End: 08-07-2024 Bamboo flowsheet Zulema B Apling WEIGHT LOSS PHYSICIAN Work Phone: [facility] Start: 08-07-2024 End: 08-07-2024 Postop follow up visit related to original px Zulema Smith Apling WEIGHT LOSS PHYSICIAN Work Phone: [facility] Comment on above: Closed nondisplaced fracture of right patella with routine healing, unspecified fracture morphology, subsequent encounter (Primary Dx); Right elbow pain Start: 08-07-2024 End: 08-07-2024 ambulatory ZULEMA B APLING Not Available Start: 07-22-2024 End: 07-22-2024 Bamboo flowsheet Zulema B Apling WEIGHT LOSS PHYSICIAN Work Phone: [facility] Start: 07-22-2024 End: 07-22-2024 Bamboo [employer]elancersheet Zulema B Apling WEIGHT LOSS PHYSICIAN Work Phone: [facility] Start: 07-22-2024 End: 07-22-2024 Office outpatient visit 15 minutes Zulema Smith Apling WEIGHT LOSS PHYSICIAN Work Phone: [facility] Comment on above: Left hand pain (Prim isamar Dx); Contusion of dorsum of left hand; Closed nondisplaced fracture of base of fifth metacarpal bone of left hand with routine healing, subsequent encounter Start: 07-22-2024 End: 07-22-2024 ambulatory ZULEMA B APLING Not Available Start: 07-10-2024 End: 07-10-2024 Bamboo flowsheet Zulema Smith Apling WEIGHT LOSS PHYSICIAN Work Phone: [facility] Start: 07-10-2024 End: 07-10-2024 Bamboo flowsheet Zulema B Apling WEIGHT LOSS PHYSICIAN Work Phone: [facility] Start: 07-10-2024 End: 07-10-2024 Office outpatient visit 15 minutes Zulema B Apling WEIGHT LOSS PHYSICIAN Work Phone: [facility] Comment on above: Closed nondisplaced fracture of right patella, unspecified fracture morphology, initial encounter (Primary Dx); Right knee pain, unspecified chronicity Start: 07-10-2024 End: 07-10-2024 ambulatory ZULEMA B APLING Not Available Start: 06-24-2024 End: 06-24-2024 Bamboo flowsheet Zulema Smith Simonelukas WEIGHT LOSS PHYSICIAN Work Phone: [facility] Start: 06-24-2024 End: 06-24-2024 Bamboo flowsheet Zulema Mackay WEIGHT LOSS PHYSICIAN Work Phone: [facility] Start: 06-24-2024 End: 06-24-2024 Office outpatient visit 25 minutes Zulema Smith Thompson WEIGHT LOSS PHYSICIAN Work Phone: [facility] Comment on above: Left hand pain (Prim isamar Dx); Right knee pain, unspecified chronicity; Contusion of right knee, initial encounter; Contusion of dorsum of left hand; Left shoulder pain, unspecified chronicity; Arthritis of left acromioclavicular joint; Glenohumeral arthritis, left Start: 06-24-2024 End: 06-24-2024 ambulatory ZULEMA MACKAY Not Available Start: 06-13-2024 End: 06-13-2024 ambulatory ZOILA MONAE Facility:[facility] Start: 06-13-2024 End: 06-13-2024 Patient encounter procedure Zoila Monae MD Work Phone: [facility] Comment on above: Transient neurologic al symptoms (Primary Dx) Start: 06-11-2024 ambulatory ZOILA MONAE Facili ty:[facility] Start: 06-11-2024 End: 06-11-2024 Subsequent hospital visit by physician Eeg [facility] Work Phone: [facility] EEG Comment on above: Memory deficit [R41. 3] Start: 06-04-2024 End: 06-04-2024 Orders Only Zoila Monae MD Work Phone: [facility] Comment on above: Memory deficit (Prim isamar Dx); Auditory hallucinations; Mentally challenged Start: 05-28-2024 End: 09-19-2024 Telephone encounter Zoila Monae MD Work Phone: [facility] Start: 05-28-2024 End: 05-28-2024 ambulatory ELLIOT SUBHA [facility] Start: 03-06-2024 End: 03-06-2024 ambulatory TONY AMAYA Facility:[facility] Start: 03-06-2024 End: 03-06-2024 Patient encounter procedure Zoila Monae MD Work Phone: Neurology Psychiatric Comment on above: Memory deficit (Prim isamar Dx); Auditory hallucinations; Mentally challenged Start: 02-20-2024 Emergency department patient visit REGAN ALDANA [facility] Start: 02-20-2024 End: 02-20-2024 Emergency department patient visit CASSANDRA ALCANTARA [facility] Start: 02-01-2024 End: 02-01-2024 ambulatory TONY AMAYA [facility] Start: 01-01-2024 Emergency department patient visit GURDEEP KIRKPATRICK [facility] Start: 01-01-2024 End: 01-05-2024 Evaluation and management of inpatient PAM WAY [facility] Start: 01-03-2023 End: 01-07-2023 Evaluation and management of inpatient DR TONY AMAYA . Facility:[facility] Start: 11-01-2022 End: 11-02-[address] TONY AMAYA . Facility:[facility] Start: 09-30-2022 End: 10-01-[address] ROSALINA BAUTISTA Facility:[facility] Start: 09-02-2022 End: 09-02-2022 ambulatory MD Tony Amaya Work Phone: [facility] Work Phone: Start: 09-02-2022 End: 09-02-2022 Patient encounter procedure MD Tony Amaya Work Phone: [facility]-XR [facility] [place] Start: 08-25-2022 End: 08-25-[address] ROSALINA BAUTISTA Facility:[facility] Start: 08-10-2022 End: 08-12-2022 Admission to same day surgery center MD Tony Amaya Work Phone: [facility]-Surgery Center [facility] [place] Start: 08-10-2022 End: 08-12-2022 ambulatory MD Tony Amaya Work Phone: [facility] Work Phone: Start: 08-08-2022 End: 08-08-2022 ambulatory MD Tony Amaya Work Phone: [facility] Work Phone: Start: 08-08-2022 End: 08-08-2022 Departed Referred MD Tony Amaya Work Phone: [facility]-Surgery Center [facility] [place] Start: 08-05-2022 End: 08-05-2022 ambulatory MD Tony Amaya Work Phone: [facility] Work Phone: Start: 08-05-2022 End: 08-05-2022 Patient encounter procedure MD Tony Amaya Work Phone: [facility]-Pre-Surgical Testing Start: 07-30-2022 End: 07-30-[address] ROSALINA BAUTISTA Facility:[facility] Start: 07-04-2022 End: 07-06-[address] TONY AMAYA . Facility:[facility] Start: 07-04-2022 End: 07-04-[address] ALBERTO FERRO Facility:[facility] Start: 06-29-2022 Encounter for preprocedural laboratory examination [facility] . [facility] Start: 06-27-2022 End: 06-28-[address] [facility] . Facility:[facility] Start: 06-27-2022 End: 06-28-2022 Encounter for preprocedural laboratory examination [facility] . Facility:[facility] Start: 06-22-2022 End: 06-23-2022 ambulatory [facility] . Facility:[facility] Start: 06-20-2022 End: 06-20-[address] TONY AMAYA . Facility:[facility] Start: 06-20-2022 End: 06-21-2022 ambulatory [facility] . Facility:[facility] Start: 03-03-[address] TONY AMAYA . Facili ty:[facility]1 Start: 03-02-2022 End: 03-03-[address] TONY AMAYA . Facility:[facility] Start: 01-18-2022 End: 01-21-2022 Evaluation and management of inpatient DR TONY AMAYA . Facility: Start: 03-30-2020 End: 04-06-2020 Evaluation and management of inpatient EMMY TOLEDO Facility:[facility] Procedures Date Procedure Procedure Detail Performing Clinician Start: 11-28-2024 End: 11-28-2024 Needle emg ea extremty w/paraspinl area complete Monika Vargas DO Work Phone: Start: 10-07-2024 Radex hand minimum 3 views Zulema B Varnell g WEIGHT LOSS PHYSICIAN Work Phone: Start: 09-16-2024 Radex hand minimum 3 views Zulema B Varnell g WEIGHT LOSS PHYSICIAN Work Phone: Start: 09-16-2024 Radiologic examination knee 3 views Zulema B Apling WEIGHT LOSS PHYSICIAN Work Phone: Start: 08-19-2024 Radex hand minimum 3 views Zulema B Varnell g WEIGHT LOSS PHYSICIAN Work Phone: Start: 08-07-2024 End: 08-07-2024 Radex elbow 2 views Zulema B Apling WEIGHT LOSS PHYSICIAN Work Phone: Start: 07-22-2024 Radex hand minimum 3 views Zulema B Varnell g WEIGHT LOSS PHYSICIAN Work Phone: Start: 06-24-2024 Radiologic examination knee 3 views Zulema B Apling WEIGHT LOSS PHYSICIAN Work Phone: Start: 06-11-2024 Electroencephalogram w/rec awake&drowsy Zoila Monae MD Work Phone: Start: 06-11-2024 Electroencephalogram w/rec awake&drowsy Provider [facility] Start: 09-02-2022 Plain chest X-ray MD Tony [...] Jesúsgabby Work Phone: Start: 08-10-2022 Mycology culture Tony Jesúsgabby Work Phone: Start: 08-10-2022 Plain chest X-ray MD Tony Amaya Work Phone: Start: 08-10-2022 Opening of chest MD Tony Amaya Work Phone: Start: 08-05-2022 Urine culture Tony Jesúsgabby Work Phone: Start: 08-05-2022 Plain chest X-ray Tony Jose Luis Work Phone: Start: 03-31-2020 INSERT PACE. DUAL YOVANA IN CHEST SUBCU/FASCIA, OPEN REBECCA MARTHA Start: 03-31-2020 INSERTION OF PACEMAKER LEAD INTO R VENTRICLE, PERC APPROACH REBECCA MARTHA Start: 03-31-2020 INSERTION OF PACEMAKER LEAD INTO RIGHT ATRIUM, PERC APPROACH REBECCA MARTHA Acid fast bacilli culture Tony Jesúsgabby Work Phone: Acid fast stain method MD Ahuja Jesúsgabby Work Phone: Aerobic microbial culture MD Jimenez Jesúsgabby Work Phone: Anaerobic microbial culture MD Tony Amaya Work Phone: Urine culture MD Tony Amaya Work Phone: Plan of Treatment Date Care Activity Detail Author Start: 2039 RSV Vaccine (1 - 1-dose 75+ series) RSV Vaccine (1 - 1-dose 75+ series) [facility] Start: 02-19-2027 Diabetes Screening Diabetes Screening [facility] Start: 11-26-2024 Urine culture [facility] Start: 11-26-2024 Bacteria identified in Urine by Culture Urine Culture [facility] Start: 11-11-2024 End: 11-11-2024 Patient encounter procedure 11/11/2024 10:00 AM EST Office Visit [facility] [address] [place] [address] Zulema Mackay, WEIGHT LOSS PHYSICIAN [address] [place] [address] [facility] Start: 11-08-2024 End: 11-08-2024 ambulatory 11/08/2024 12:00 PM EST Treatment [facility] [address] [place] [address] Zehra Bunch, OT [address] [place] [address] [facility] Start: 11-05-2024 End: 11-05-2024 ambulatory 11/05/2024 12:00 PM EST Treatment [facility] [address] [place] [address] Zehra Bunch, OT [address] [place] [address] [facility] Start: 11-01-2024 End: 11-01-2024 ambulatory 11/01/2024 1:00 PM EST Treatment [facility] [address] [place] [address] Zehra Bunch, OT [address] [place] [address] [facility] Start: 10-29-2024 End: 10-29-2024 ambulatory [facility] Comment on above: Arrived Start: 10-25-2024 End: 10-25-2024 ambulatory 10/25/2024 9:00 AM EST Treatment [facility] [address] [place] [address] Zehra Bunch, OT [address] [place] [address] [facility] Start: 10-22-2024 End: 10-22-2024 ambulatory 10/22/2024 1:00 PM EST Evaluation [facility] [address] [place] [address] Zehra Bunch, OT [address] [place] [address] Closed nondisplaced fracture of base of fifth metacarpal bone of left hand with routine healing, subsequent encounter [facility] Comment on above: Closed nondisplaced fracture of base of fifth metacarpal bone of left hand with routine healing, subsequent encounter Start: 10-11-2024 End: 10-11-2024 ambulatory 10/11/2024 1:30 PM EST Evaluation [facility] [address] [place] [address] Florina Degroot, OT [address] [place] [address] [facility] Start: 10-07-2024 End: 10-07-2024 Patient encounter procedure 10/07/2024 11:15 AM EST Office Visit [facility] [address] [place] [address] Zulema Mackay, WEIGHT LOSS PHYSICIAN [address] [place] [address] [facility] Start: 09-16-2024 End: 09-16-2024 Patient encounter procedure 09/16/2024 10:00 AM EST Office Visit [facility] [address] [place] [address] Zulema Mackay, WEIGHT LOSS PHYSICIAN [address] [place] [address] [facility] Start: 08-19-2024 End: 08-19-2024 Patient encounter procedure 08/19/2024 12:30 PM EST Office Visit [facility] [address] [place] [address] Zulema Mackay, WEIGHT LOSS PHYSICIAN [address] [place] [address] [facility] Start: 08-07-2024 End: 08-07-2024 Patient encounter procedure [facility] Comment on above: Closed nondisplaced fracture of right leonor huang with routine healing, unspecified fracture morphology, subsequent encounter (Primary Dx) Start: 07-22-2024 End: 07-22-2024 Patient encounter procedure [facility] Comment on above: Left hand pain (Primary Dx); Contusion of dorsum of left hand Start: 07-10-2024 End: 07-10-2024 Patient encounter procedure 07/10/2024 12:15 PM EDT Office Visit [facility] [address] [place] [address] Zulema Mackay, WEIGHT LOSS PHYSICIAN [address] [place] [address] Arrived [facility] Comment on above: Arrived Start: 06-24-2024 End: 06-24-2024 Patient encounter procedure 06/24/2024 10:30 AM EDT Office Visit [facility] [address] [place] [address] Zulema Mackay, WEIGHT LOSS PHYSICIAN [address] [place] [address] Left hand pain (Primary Dx); Right knee pain, unspecified chronicity; Contusion of right knee, initial encounter; Contusion of dorsum of left hand; Left shoulder pain, unspecified chronicity; Arthritis of left acromioclavicular joint; Glenohumeral arthritis, left [facility] Comment on above: Left hand pain (Primary Dx); Right knee pain, unspecified chronicity; Contusion of right knee, initial encounter; Contusion of dorsum of left hand; Left shoulder pain, unspecified chronicity; Arthritis of left acromioclavicular joint; Glenohumeral arthritis, left Start: 06-13-2024 End: 06-13-2024 Patient encounter procedure 06/13/2024 12:30 PM EDT Office Visit [facility] [address] [place] [address] [place] [address] [place] [address] Return in about 3 months (around 06/06/2024) for with Dr. Monae. [facility] Comment on above: Return in about 3 months (around ) for with Dr. Monae. Start: 06-11-2024 End: 06-11-2024 Patient encounter procedure 06/11/2024 9:00 AM EDT Appointment [facility] [address] [address] Memory deficit [R41.3] [facility] EEG Comment on above: Memory deficit [R41.3] Start: 06-02-2024 Covid-19 Vaccine ( season) Covid-19 Vaccine () [facility] Start: 06-02-2024 Covid-19 Vaccine ( season) Covid-19 Vaccine () [facility] Start: 06-02-2024 Influenza vaccination [facility] Start: 03-29-2024 End: 03-29-2024 Patient encounter procedure 03/29/2024 11:45 AM EDT Office Visit Neurology [address] [place] [id number] Memory deficit [R41.3] Neurology Comment on above: Memory deficit [R41.3] Start: 10-02-2023 Behavioral Health Screening Behavioral Health Screening [facility] Start: 06-02-2023 Covid-19 Vaccine () Covid-19 Vaccine () [facility] Start: 08-12-2022 [facility] Start: 08-10-2022 Consultation [facility] Start: 08-10-2022 End: 08-10-2022 [facility] Start: 2014 Pneumococcal Vaccine: 50+ (1 of 1 - PCV) Pneumococcal Vaccine: 50+ (1 of 1 - PCV) [facility] Start: 2014 Shingrix Vaccine (1 of 2) Shingrix Vaccine (1 of 2) [facility] Start: 2009 Lipid panel Lipid Screening [facility] Start: 2009 Screening for malignant neoplasm of colon [facility] Start: 2004 Screening for malignant neoplasm of breast Mammogram Screening [facility] Start: 1994 Screening for malignant neoplasm of cervix HPV Testing [facility] Start: 1985 Screening for malignant neoplasm of cervix [facility] Start: 1983 Urine microalbumin profile DTaP,Tdap,Td Vaccine (1 - Tdap) [facility] Start: 1982 Anxiety Screening Anxiety Screening [facility] Start: 1982 Depression Screening Depression Screening [facility] Start: 1982 Hepatitis C screening Hepatitis C Screening [facility] Start: 1982 HIV screening HIV Screening [facility] Acid Fast Bacilli Cu lture & Smear Acid Fast Bacilli Culture & Smear [facility] Anaerobic microbial culture Anaerobic Culture [facility] Bacteria identified in Urine by Culture Urine Culture [facility] Chlamydia trachomati s [Presence] in Unspecified specimen by Organism specific culture [facility] Work Phone: Chlamydia trachomati s [Presence] in Unspecified specimen by Organism specific culture [facility] EEG EEG NEUROLOGY 12:00 AM EDT [facility] End: 03-06-2025 EPIL EEG ROUTINE EPIL EEG ROUTINE NEUROLOGY Routine Memory deficit Auditory hallucinations 1 Occurrences starting 03/06/2024 until 03/06/2025 [facility] Work Phone: Comment on above: 1 Occurrences starting 03/06/2024 until 03/06/2025 Fungal Culture Result 1 Fungal Culture Re sult 1 [facility] Fungus identified in Unspecified specimen by Culture [facility] Work Phone: Mycobacterium sp identified in Unspecified specimen by Organism specific culture [facility] Work Phone: Mycology Culture Mycology Culture [facility] Patient referral [facility] Work Phone: [facility] Payers Date Payer Category Payer Self-pay 2017 Medicaid [id number] 2017 Medicaid (Managed Care) [facility] MEDICAID [id number] 1964 Unknown [id number] 2.840.1.866771.3.579.2. 647 1964 Unknown [id number] 2.840.1.117552.3.579.2. 593 1964 Unknown [id number] 2.16840.1.544369.3.579.2. 593 1964 Unknown [id number] 2.16840.1.499427.3.579.2. 593 1964 Unknown [id number] 2.16840.1.200867.3.579.2. 593 1964 Unknown [id number] 2.16.840.1.435257.3.579.2. 593 1964 Unknown [id number] 2.16840.1.423212.3.579.2. 593 1964 Unknown [id number] 2.16.840.1.829219.3.579.2. 593 1964 Unknown [id number] 2.16.840.1.080155.3.579.2. 593 1964 Unknown [id number] 2.16.840.1.100773.3.579.2. 593 1964 Unknown [id number] 2.16.840.1.397234.3.579.2. 593 1964 Unknown [id number] 2.16.840.1.087832.3.579.2. 593 1964 Unknown [id number] 2.16.840.1.284245.3.579.2. 593 1964 Unknown [id number] 2.16840.1.048762.3.579.2. 593 1964 Unknown [id number] 2.16840.1.122942.3.579.2. 593 1964 Unknown [id number] 2.16.840.1.603096.3.579.2. 125 1964 Unknown [id number] 2.16.840.1.271277.3.579.2. 1259 1964 Unknown [id number] 2.16.840.1.238505.3.579.2. 1259 1964 Unknown [id number] 2.16.840.1.741226.3.579.2. 1259 1964 Unknown [id number] 2.16.840.1.452213.3.579.2. 1259 1964 Unknown [id number] 2.16.840.1.163729.3.579.2. 1259 1964 Unknown [id number] 2.16.840.1.592254.3.579.2. 1259 1964 Unknown [id number] 2.16.840.1.147760.3.579.2. 1258 1964 Unknown [id number] 2.16.840.1.284826.3.579.2. 1258 1964 Unknown [id number] 2.16.840.1.806103.3.579.2. 1258 1964 Unknown [id number] 2.16.840.1.406726.3.579.2. 1258 1964 Unknown [id number] 2.16.840.1.079160.3.579.2. 1258 1964 Unknown [id number] 2.16.840.1.731197.3.579.2. 1258 1964 Unknown [id number] 2.16.840.1.635106.3.579.2. 1258 1964 Unknown [id number] 2.16.840.1.899007.3.579.2. 1258 1964 Unknown [id number] 2.16.840.1.724940.3.579.2. 1258 1964 Unknown [id number] 2.16.840.1.267541.3.579.2. 1258 1964 Unknown [id number] 2.16.840.1.232020.3.579.2. 1258 1964 Unknown [id number] 2.16.840.1.711695.3.579.2. 1258 1964 Unknown [id number] 2.16.840.1.022618.3.579.2. 1258 1964 Unknown [id number] 2.16.840.1.055899.3.579.2. 1258 1964 Unknown [id number] 2.16.840.1.719317.3.579.2. 9 1959 Self-pay [id number] 1959 Unknown [id number] Medicaid [facility] Medicaid [id number] Unknown [id number] 2.16.840.1.142664.3.579.2. 531 Unknown [id number] 2.16.840.1.637971.3.579.2. 531 Social History Date Type Detail Facility Tobacco smoking stat us ARIS Unknown if ever smoked [facility] Work Phone: Start: 1965 Sex Assigned At Female [facility] Start: 08-10-2022 End: 06-24-2024 Tobacco smoking status NHIS Never smoked tobacco (finding) [facility] Start: 03-06-2024 Tobacco smoking status [facility] Tobacco smoking consumption unknown [facility] Start: 03-06-2024 End: 11-11-2024 History of Social function [facility] Start: 03-06-2024 End: 11-11-2024 Area Deprivation Index [facility] National Score (1-10 0), lower number is lower risk 76 [facility] Start: 1965 Sex Assigned At Not on file [facility] Start: 06-24-2024 Tobacco use and exposure Smokeless tobacco non-user [facility] Start: 06-24-2024 End: 11-11-2024 Alcoholic beverage intake Ex-drinker (finding) [facility] Start: 06-21-2024 Gender identity Identifies as female gender (finding) [facility] Start: 06-21-2024 Sexual orientation Heterosexual (finding) [facility] Start: 11-28-2024 Sex Female (finding) [facility] Medical Equipment Procedure Code Equipment Code Equipment Origin al Text Equipment Identifier Dates Thoracotomy Surgical adhesive/sealant, human-derived [id number] [facility] Start: 08-10-2022 Goals Date Patient Goal Desired Activity /State Functional Status Date Assessment Result Facility 08-12-2022 Functional status Patient at Baseline [facility] Work Phone: Mental Status Date Assessment Result Facility 08-12-2022 Cognitive function Cognitive Sta tus Patient at Baseline [facility] Work Phone: Clinical Notes 08-10-2022 to 11-29-2024 SLY SalT - 11/28/2024 11:00 AM Phillip Mackay NP - 11/11/2024 10:00 AM Leona Bunch, OT - 11/08/2024 12:00 PM Leona Bunch, OT - 11/05/2024 12:00 PM EST Note Date & Type Note Facility 11-29-2024 Note SUBJECTIVE Reason for Visit: Emigdio Eli is a 59 y.o. year old female patient being seen for 1 year follow-up visit, hospital follow-up. HPI: Emigdio Eli is a 58-year-old female with a history of COPD/centrilobular emphysema (denies smoking, states secondhand smoke exposure from her mother, on home oxygen as needed), bronchiectasis, heart block status post Biotronik dual-chamber PPM (placed in [address] Weaver), bipolar disorder, and depression. She underwent pacemaker implantation during a 2019 hospitalization for symptomatic bradycardia. The patient was recently admitted to [facility] (11/25-11/27) after running out of home oxygen for approximately two weeks, experiencing dizziness, shortness of breath, and oxygen desaturations below 90%. She also had a four-day history of fever, nausea, vomiting, and decreased oral intake. Workup revealed influenza A and right lower lobe pneumonia. She was treated with supplemental oxygen, Tamiflu, steroids, and antibiotics before discharge. 11/29/2024 office visit: The patient presents to the office today for follow-up after a recent hospitalization, positive for influenza A . Overall, she appears to be doing well and is not in acute respiratory distress. However, she reports persistently low oxygen saturations around 90% and occasionally lower. When questioned about her oxygen use, she states that she uses it intermittently but is not currently wearing it, citing that she did not feel like it. She appears minimally engaged in our discussion. She denies chest pain, lightheadedness, palpitations, dizziness, or lower extremity edema. 10/24/2023 office visit (Raphael Lawrence, KAL[place]): She has been feeling well without complaints [...] LVEF 60%, mildly elevated RVSP, mild TR Past Medical History: Diagnosis Date Abnormal ECG COPD (chronic obstructive pulmonary disease) (CMS/HCC) Hyperlipidemia Symptomatic bradycardia Past Surgical History: Procedure Laterality Date CHOLECYSTECTOMY INSERT / REPLACE / REMOVE PACEMAKER Patient Active Problem List Diagnosis Abdominal pain Constipated Dyspepsia COPD (chronic obstructive pulmonary disease) (CMS/HCC) CURRAN (dyspnea on exertion) Pacemaker Hyperlipidemia Dizziness Unspecified severe protein-calorie malnutrition Finger stiffness, left Transient neurological symptoms family history includes Alzheimer's disease in her father. Social History Tobacco Use Smoking status: Never Smokeless tobacco: Never Substance Use Topics Alcohol use: Not Currently OBJECTIVE Visit Vitals BP 94/62 (BP Location: Right arm, Patient Position: Sitting) Pulse 76 Ht 1.524 m (5') Wt 46.7 kg (103 lb) SpO2 (!) 88% BMI 20.12 kg/m??? OB Status Hysterectomy Smoking Status Never BSA 1.41 m??? Physical Exam Constitutional: General Appearance: well-developed, appears stated age. Level of Distress: no acute distress. Neck: Jugular Veins: normal jugular venous pressure. Lungs: Auscultation: no rales or rhonchi and normal breath sounds. Cardiovascular: Rate And Rhythm: regular. Heart Sounds: normal S1 and s2; Systolic Murmur: not heard. Diastolic Murmur: not heard. Extremities: no edema Peripheral Pulses: Pulses: full and equal in all extremities except if noted. Abdomen: Inspection and Palpation: non distended or tender and soft. Musculoskeletal: Inspection: no joint tenderness or swelling. Neurologic: Gait: normal gait. Psychiatric: Mental Status: alert and normal affect. Skin: Inspection and Palpation: warm and dry. Allergies: Allergies Allergen Reactions Compazine [Prochlorperazine] Sulfa (Sulfonamide Antibiotics) Outpatient Medications: Current Outpatient Medications Medication Instructions albuterol 90 mcg/actuation inhaler Every 4 hours buPROPion XL (Wellbutrin XL) 300 mg 24 hr tablet Every 24 hours cholecalciferol, vitamin D3, 50 mcg (2,000 unit) capsule 1 capsule, Every 24 hours citalopram (CELEXA) 20 mg, oral, Daily Fosamax 70 mg tablet 1 tablet 30 minutes before the first food, beverage or medicine of the day with plain water Orally for 30 days lamoTRIgine (LaMICtal) 25 mg tablet 2 tablets, oral, Daily lansoprazole (Prevacid) [address] capsule Every 24 hours levothyroxine (SYNTHROID, LEVOXYL) 125 mcg, oral, Daily loratadine (CLARITIN) 10 mg, oral, Daily simvastatin (ZOCOR) 20 mg, oral, Nightly Recent Labs: No visits with results within 6 Month(s) from this visit. Latest known visit with results is: Admission on 02/20/2024, Discharged on 02/20/2024 Component Date Value Ventricular Rate 02/21/2024 79 (more content not included)... [facility] 11-28-2024 History of Present illness Narrative Images from the original note were not included. Reason for Appointment: EMG Patient: Emigdio Eli : 1965 EMG Computer: [employer] Referring Physician: Zulema GIBSON EMG: CA[facility] public utilities sales representative: Tye Dominguez RT(R) Office Location: [place] Reason for EMG: c/o numbness/tingling in left hand. No hx of DM. Not on blood thinners. Comments: Procedure was explained to the patient who expressed understanding. Patient appeared to have tolerated the test well despite some discomfort due to the nature of the test. documented in this encounter [facility] 11-11-2024 History of Present illness Narrative Images from the original note were not included. Subjective Patient ID: Emigdio Eli is a 59 y.o. female. LT hand 4 months s/p LT hand contusion Has went to #5 visits of O.T.- thinks therapy makes it worse. Pt had tripped over a sidewalk and Fell landing on her left hand and right knee. DOI 06/19/24, she then hit her chest and rolled over onto her left shoulder hitting her shoulder. She was able to walk afterwards, was taken to [facility] ER on 06/19/24 by her partner Pt is RT handed. Occas pain, states usually from the spasms. Taking TYL. Using heat. Waking at HS due to spasms. Continues having numbness in entire hand that is constant, she notes the numbness will go away for short periods of time maybe 30 minutes and then will come back. She notes the numbness is in all the fingers. Good ROM. Unable to touch her thumb and LF together. States she stopped therapy due to the therapist recommending a Neurologist. TX: XR/06/19/24/TB LT hand, RT knee, LT shoulder, [facility] ER 06/19/24, norco, IBU, XR NOMS 07/22/24, XR NOMS 08/19/24, XR NOMS 10/07/24, O.T. messi noms RT Knee CT RT knee [facility] 07/05/24 Notes she started taking fosamax in 2023. States her knee is feeling better. 3.5 months Pt had tripped over a sidewalk and Fell landing on her left hand and right knee. DOI 06/19/24, she then hit her chest and rolled over onto her left shoulder hitting her shoulder. She was able to walk afterwards, was taken to [facility] ER on 06/19/24 by her partner Notes 06/22/24 she fell again [place] stones [place] race[place], and cut her LT knee. Pain with spasms, mostly at HS. Taking TYL. Using a muscle rub and heated blankets. Knee aches if she is walking on it too much. Notes she is also having spasms in knee. Will wake at HS. Denies N/T, swelling. Denies popping/grinding. Denies giving out. Notes she falls often because she has vertigo which she was dx with 6 months ago. TX: XR/06/19/24/TBH LT hand, RT knee, LT shoulder, [facility] ER 06/19/24, norco, IBU, XR NOMS 06/24, CT [facility] 07/05/24, XR NOMS 08/07/24 Objective Ortho Exam I reviewed the O.T. note from 11/05/24 #4 pt improving but still complaining of numbness at times in the hand. Assessment/Plan Encounter Diagnoses: ICD-10-CM 1. Closed nondisplaced fracture of base of fifth metacarpal bone of left hand with routine healing, subsequent encounter S62.158D 2. Closed nondisplaced fracture of right patella with routine healing, unspecified fracture morphology, subsequent encounter S82.001D 3. Numbness and tingling in left hand R20.0 Ambulatory referral to Neurology R20.2 Will send to [facility] for LT UE EMG, f/U s/p EMG. Hand/Wrist Musculoskeletal Exam Inspection Left Erythema: none Ecchymosis: none Edema: none Deformity: none Palpation Left Dorsal hand - 5th metacarpal tenderness to palpation: distal Palpation additional comments: No pain to palpation Range of Motion Range of motion additional comments: Full rom of the wrist and fingers, weak interossi Neurovascular Left Capillary refill: <3 sec Neurovascular additional comments: Decreased sensation in all fingers documented in this encounter [facility] 11-08-2024 History of Present illness Narrative Occupational Therapy Occupational Therapy Treatment Visit Patient Name: Emigdio Eli Today's Date: 11/08/2024 Linked Episodes Type: Episode: Status: Noted: Resolved: Last update: Updated by: Occupational Therapy L 5th digit fracture Active 10/08/2024 11/08/2024 9:28 AM Zehra Bunch OT Comments:Episode created from referral [id number] Visit number: 5 Timed Code Treatment minutes: 53 Total Treatment Time: 53 Subjective Pain: 5/10 My hand is still going numb. I woke up yesterday and my entire hand was numb and it was spasming . Overall progress: improving Objective: 30'MT including STM along the 4th/5th PROM to digits 4-5 and wrist. 1x20. AROM digits 1-5 x20 and wrist. All ROM. Manipulated all carpal bones and digits 4-5 to reduce tightness. STM/DTM with use of ISTM. 23' DANIEL 10 minutes supervised DANIEL in fluido for tissue preconditioning. 5th digit wrapped in flexion under heat for a LLPS. Contract/release exercise with fair toleration x20. t-putty exercises complete with yellow resistance. with focus on Lp and composite gripping. Theraweb for wrist extension and therabar for wrist strengthening 1x20. Reviewed median and ulnar nerve glides secondary to numbness reported with good toleration. Reviewed HEP. Treatment: Manual: edema control/ pain management Therapeutic Exercise: strengthening/ ROM of L hand Therapeutic Activity: Modalities: Fluido Neuro Re-Ed: nerve glides Assessment/Plan Pt tolerated session well. Able to make full composite fist and complete 5th digit/ thumb finger opposition. Continues to c/o increased numbness and spasms to the L hand. Manufacturing Sales Representative strength has increased to 25# and LP has remained at 5#. Encouraged stretching/ nerve glides at home. Does have a follow up with ortho on Monday. P: Continue with POC, progress per toleration. documented in this encounter [facility] 11-05-2024 History of Present illness Narrative Occupational Therapy Occupational Therapy Treatment Visit Patient Name: Emigdio Eli Today's Date: 11/05/2024 Linked Episodes Type: Episode: Status: Noted: Resolved: Last update: Updated by: Occupational Therapy L 5th digit fracture Active 10/08/2024 11/01/2024 12:46 PM Zehra Bunch OT Comments:Episode created from referral [id number] Visit number: 01/07 Timed Code Treatment minutes: 55 Total Treatment Time: 55 Subjective Pain: 5/10 my hand is still going numb. I dont know . It just comes and goes . Overall progress: improving Objective: 30'MT including STM along the 4th/5th PROM to digits 4-5 and wrist. 1x20. AROM digits 1-5 x20 and wrist. All ROM. Manipulated all carpal bones and digits 4-5 to reduce tightness. STM/DTM with use of ISTM. 25' DANIEL 10 minutes supervised DANIEL in fluido for tissue preconditioning. 5th digit wrapped in flexion under heat for a LLPS. Contract/release exercise with fair toleration x20. t-putty exercises complete with yellow resistance. with focus on Lp and composite gripping. Theraweb for wrist extension and therabar for wrist strengthening 1x20. Reviewed median and ulnar nerve glides secondary to numbness reported with good toleration. Reviewed HEP. Treatment: Manual: edema control/ pain management Therapeutic Exercise: strengthening/ ROM of L hand Therapeutic Activity: Modalities: Fluido Neuro Re-Ed: nerve glides Assessment/Plan Pt tolerated session well. Able to make full composite fist and complete 5th digit/ thumb finger opposition. Continues to c/o increased numbness and spasms to the L hand. Encouraged stretching/ nerve glides at home. OT remains necessary to maximize L hand function in order to return to all I/ADL tasks at discharge. P: Continue with POC, progress per toleration. documented in this encounter [facility] 11-01-2024 Telephone encounter Note She called noting not feeling well and is cx OT for today. I reminded her, her next on 11/05. She said she'll try to be here; I told her if not feeling better to contact. [facility] 11-01-2024 Miscellaneous Notes She called noting not feeling well and is cx OT for today. I reminded her, her next on 11/05. She said she'll try to be here; I told her if not feeling better to contact. documented in this encounter [facility] 10-29-2024 History of Present illness Narrative Occupational Therapy Occupational Therapy Treatment Visit Patient Name: Emigdio Eli Today's Date: 10/29/2024 Linked Episodes Type: Episode: Status: Noted: Resolved: Last update: Updated by: Occupational Therapy L 5th digit fracture Active 10/08/2024 10/28/2024 1:49 PM Zehra Bunch OT Comments:Episode created from referral [id number] Visit number: 12/07 Timed Code Treatment minutes: 55 Total Treatment Time: 55 Subjective Pain: 5/10 my hand has been pretty numb all weekend. It usually comes and goes and now its all numb . Overall progress: improving Objective: 30'MT including STM along the 4th/5th PROM to digits 4-5 and wrist. 1x20. AROM digits 1-5 x20 and wrist. All ROM. Manipulated all carpal bones and digits 4-5 to reduce tightness. STM/DTM with use of ISTM. 25' DANIEL 10 minutes supervised DANIEL in fluido for tissue preconditioning. 5th digit wrapped in flexion under heat for a LLPS. Contract/release exercise with fair toleration x20. t-putty exercises complete with yellow resistance. with focus on Lp and composite gripping. Theraweb for wrist extension and therabar for wrist strengthening 1x20. Reviewed median and ulnar nerve glides secondary to numbness reported with good toleration. Reviewed HEP. Treatment: Manual: edema control/ pain management Therapeutic Exercise: strengthening/ ROM of L hand Therapeutic Activity: Modalities: Fluido Neuro Re-Ed: nerve glides Assessment/Plan Pt tolerated session well. Able to make full composite fist and complete 5th digit/ thumb finger opposition. Continues to c/o increased numbness and spasms to the L hand. Encouraged stretching/ nerve glides at home. OT remains necessary to maximize L hand function in order to return to all I/ADL tasks at discharge. P: Continue with POC, progress per toleration. documented in this encounter [facility] 10-25-2024 History of Present illness Narrative Occupational Therapy Occupational Therapy Treatment Visit Patient Name: Emigdio Eli Today's Date: 10/25/2024 Linked Episodes Type: Episode: Status: Noted: Resolved: Last update: Updated by: Occupational Therapy L 5th digit fracture Active 10/08/2024 10/24/2024 11:08 AM Zehra Bunch OT Comments:Episode created from referral [id number] Visit number: 2 Timed Code Treatment minutes: 55 Total Treatment Time: 55 Subjective Pain: 5/10 I had a bunch of spasms in it last night. Numb and spasms in my whole hand . Overall progress: unchanged since IE . Objective: 30'MT including STM along the 4th/5th PROM to digits 4-5 and wrist. 1x20. AROM digits 1-5 x20 and wrist. All ROM. Manipulated all carpal bones and digits 4-5 to reduce tightness. STM/DTM with use of ISTM. 25' DANIEL 10 minutes supervised DANIEL in fluido for tissue preconditioning. 5th digit wrapped in flexion under heat for a LLPS. Contract/release exercise with fair toleration x20. t-putty exercises complete with yellow resistance. with focus on Lp and composite gripping. Added median and ulnar nerve glides secondary to numbness reported with good toleration. Reviewed HEP. Treatment: Manual: edema control/ pain management Therapeutic Exercise: strengthening/ ROM of L hand Therapeutic Activity: Modalities: Fluido Neuro Re-Ed: nerve glides Assessment/Plan Pt tolerated session well. Able to make full composite fist and complete 5th digit/ thumb finger opposition. Continues to c/o increased numbness and spasms to the L hand. Encouraged stretching/ nerve glides at home. OT remains necessary to maximize L hand function in order to return to all I/ADL tasks at discharge. P: Continue with POC, progress per toleration. documented in this encounter [facility] 10-22-2024 History of Present illness Narrative Images from the original note were not included. Occupational Therapy Occupational Therapy Evaluation Visit Patient Name: Emigdio Eli Today's Date: 10/22/2024 Linked Episodes Type: Episode: Status: Noted: Resolved: Last update: Updated by: Occupational Therapy Physical Therapy - Occupational Therapy - October 2024 Active 10/08/2024 10/18/2024 1:40 PM Amb, Background User Comments:Episode created from referral [id number] Visit number: 1 Subjective Interim History: 59 y/o R hand dominant female presents with chief complaint of total hand numbness and limited ROM of the 5th digit. Per patient she smashed her hand in a car door resulting in a fracture of the MCP. Per patient she was casted and this did not come off until 09/16/24. States since having the cast off she finds herself dropping everything with her L hand . Numbness does come and go. States every finger and palm of the hand is affected. Pain: Pain up to 8/10 pain to the MCP. Pain at rest 3/10. Pain described as achey Imaging: Multiple views of left hand showed fracture through the base of the 5th metacrpal to be in unchanged position and alignment with slight increase in callus formation compared to prior x-rays. There was no other acute bony process including but not limited to fracture and/or dislocation. Impression: Healing fracture base of left 5th metacarpal Prior Level of Function: I with all self-care and functional mobility Precautions: none Objective PRWHE Pain Score: 33/50 PRWHE Functional Score: 57/100 Hand/Wrist Musculoskeletal Exam Inspection Left Erythema: none Ecchymosis: none Edema: mild Deformity: none Hand - prior incision: none Palpation Left Wrist tenderness to palpation: radial carpal joint and ulnocarpal joint Range of Motion Left Hand Small distal interphalangeal: limited Active: 60 Small proximal interphalangeal joint: limited Active: 80 Small metacarpal phalangeal joint: limited Active: 50 Range of motion additional comments: 5th digit 1cm away from the DPC crease; Unable to complete finger opposition with 5th digit. Strength Strength additional comments: L shear assembler strength: 15# LP: 5# R shear assembler strength: 30# LP: 9 Treatment: Education: HEP education with demonstration, Educated on Eval Findings and POC Manual Therapy: Passive ROM, Joint mobilization, Soft Tissue Mobilization, Myofascial Release, Muscle Energy Technique, Neural Mobilization, Myofascial Cupping, Dry Needling, IASTM, and Scar mobilization Therapeutic Exercise: Strength, Endurance, Flexibility, ROM, HEP, and Power Therapeutic Activity: Exercises to improve dynamic activities, functional tasks, functional mobility to return to prior activity level Neuromuscular re-education: Muscle Facilitation and Dynamic Stability Modalities: Heat, Ice, Electrical Stimulation, Ultrasound, Iontophoresis, and Fluidotherapy Today: Fluido x10 minutes with supervised DANIEL. AROM/PROM/ joint mobilization complete to L RF 1x20. Composite fist with holds x1 minute complete x3 with RF touching DPC at end of session. HEP established for ROM and edema management. Also added nerve glides secondary to c/o increased numbness to L hand at discharge. Assessment/Plan Short Term Goals: Pt will be independent with home exercise program for light strengthening and ROM at discharge. [place] Goals: PRWHE Pain Score < 10/50 ( IE: 33/50) PRWHE Functional Score < 10/100 ( IE:57/100 ) Increase L 5th digit CHAO to 100% pain free in order to complete I/ADL tasks at discharge. 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 Pt to be able to make full composite fist in order to complete dishes at discharge. Pt will be able to use LUE in light daily activities. Pt will benefit from skilled OT to address the above impairments for 2x/week 6-8 for weeks. I hereby deem this POC medically necessary. Please sign below. Date: documented in this encounter [facility] 10-08-2024 Telephone encounter Note She called back and we scheduled her OT Eval for 1/10 w/ Florina Degroot OT. [facility] 10-08-2024 Miscellaneous Notes She called back and we scheduled her OT Eval for 10 w/ Florina Degroot, OT. Tried to contact to set-up OT for L hand, but the voicemail is full. documented in this encounter [facility] 10-08-2024 Telephone encounter Note Tried to contact to set-up OT for L hand, but the voicemail is full. [facility] 10-07-2024 History of Present illness Narrative Images from the original note were not included. Subjective Patient ID: Emigdio Eli is a 59 y.o. female. LT hand 3.5 months s/p LT hand contusion She notes a few days after getting the cast off, she smashed her hand in the car door at [facility]. Here to check ROM Pt had tripped over a sidewalk and Fell landing on her left hand and right knee. DOI 06/19/24, she then hit her chest and rolled over onto her left shoulder hitting her shoulder. She was able to walk afterwards, was taken to [facility] ER on 06/19/24 by her partner Pt is RT handed. Will get spasms in hand that causes pain between 4th and 5th MC. Some aches with weather changes. Taking TYL prn. States constant numbness in thumb. Denies N/T in other fingers. Denies swelling. Does not wake at HS. Pain is 3/10 today, goes to 5-6/10 with spasms. TX: XR/06/19/24/TBH LT hand, RT knee, LT shoulder, [facility] ER 06/19/24, norco, IBU, XR NOMS 07/22/24, XR NOMS 08/19/[address] RT knee [facility] 07/05/24 Notes she started taking fosamax in 2023. States her knee is feeling better. 3.5 months Pt had tripped over a sidewalk and Fell landing on her left hand and right knee. DOI 06/19/24, she then hit her chest and rolled over onto her left shoulder hitting her shoulder. She was able to walk afterwards, was taken to [facility] ER on 06/19/24 by her partner Notes 06/22/24 she fell again on stones [place] a raceway, and cut her LT knee. States she only has discomfort when putting her knee on the ground. Taking TYL prn. Denies topicals. Denies N/T, swelling. Does not wake at HS. Notes she falls often because she has vertigo which she was dx with 6 months ago. TX: XR/06/19/24/TBH LT hand, RT knee, LT shoulder, [facility] ER 06/19/24, norco, IBU, XR NOMS 06/24, CT [facility] 07/05/24, XR NOMS 08/07/24 RT elbow Pt notes she fell on Monday08/04/23 and hit her right elbow. Only painful if she bumps it. TX: xrays 08/07/24 noms Objective Ortho Exam Knee Musculoskeletal Exam Palpation Right Tenderness: none Range of Motion Right Active extension: 0 Active flexion: 120 XR hand 3+ views left Imaging Result: Multiple views of left hand showed fracture through the base of the 5th metacrpal to be in unchanged position and alignment with slight increase in callus formation compared to prior x-rays. There was no other acute bony process including but not limited to fracture and/or dislocation. Impression: Healing fracture base of left 5th metacarpal Assessment/Plan Encounter Diagnoses: ICD-10-CM 1. Closed nondisplaced fracture of base of fifth metacarpal bone of left hand with routine healing, subsequent encounter S62.347D Ambulatory referral to Occupational Therapy XR hand 3+ views left 2. Closed nondisplaced fracture of right patella with routine healing, unspecified fracture morphology, subsequent encounter S82.001D Will send to therapy, f/U in 6-8 weeks to check ROM, will send to messi early, she may begin to do activities as tolerated Hand/Wrist Musculoskeletal Exam Inspection Left Erythema: none Ecchymosis: none Edema: none Deformity: none Palpation Left Dorsal hand - 5th metacarpal tenderness to palpation: distal Palpation additional comments: Pain over 5th MC Range of Motion Range of motion additional comments: Stiffness with ROM of the fingers and wrist, unable to make a full fist Neurovascular Left Capillary refill: <3 sec Images from the original note were not included. Subjective Patient ID: Emigdio Eli is a 59 y.o. female. LT hand 3.5 months s/p LT hand contusion Here to check ROM Pt had tripped over a sidewalk and Fell landing on her left hand and right knee. DOI 06/19/24, she then hit her chest and rolled over onto her left shoulder hitting her shoulder. She was able to walk afterwards, was taken to [facility] ER on 06/19/24 by her partner Pt is RT handed. Hand is stiff and has been getting spasms still between 4th and 5th MC. Denies pain today. Taking TYL for multiple things. Using ice and heat. Has been moving fingers. Good ROM. Intermittent numbness, mostly in thumb. Intermittent swelling. Sometimes wakes at HS. TX: XR/06/19/24/TBH LT hand, RT knee, LT shoulder, [facility] ER 06/19/24, norco, IBU, XR NOMS 07/22/24, XR NOMS 08/19/24, XR NOMS 10/07/[address] RT knee [facility] 07/05/24 Notes she started taking fosamax in 2023. States her knee is feeling better. 3.5 months Pt had tripped over a sidewalk and Fell landing on her left hand and right knee. DOI 06/19/24, she then hit her chest and rolled over onto her left shoulder hitting her shoulder. She was able to walk afterwards, was taken to [facility] ER on 06/19/24 by her partner Notes 06/22/24 she fell again on stones [place] a raceway, and cut her LT knee. Denies pain in knee. States she is having muscle aches and gets spasms. Mostly at HS. Taking TYL. Using ice and heat. Has tried bengay. Sometimes wakes at HS. Denies N/T, swelling. Denies popping/grinding. Denies giving out. Notes she falls often because she has vertigo which she was dx with 6 months ago. TX: XR/06/19/24/[facility] LT hand, RT knee, LT shoulder, [facility] ER 06/19/24, norco, IBU, XR NOMS 06/24, CT [facility] 07/05/24, XR NOMS 08/07/24 RT elbow Pt notes she fell on 08/04/23 and hit her right elbow. ventilation equipment tender to the touch, medial elbow. TX: xrays 08/07/24 noms Objective Ortho Exam Knee Musculoskeletal Exam Gait Limp: right Inspection Right Effusion: none Edema: none Ecchymosis: none Deformity: none Alignment: normal Palpation Right Tenderness: none Assessment/Plan Encounter Diagnoses: ICD-10-CM 1. Closed nondisplaced fracture of base of fifth metacarpal bone of left hand with routine healing, subsequent encounter S62.347D 2. Closed nondisplaced fracture of right patella with routine healing, unspecified fracture morphology, subsequent encounter S82.001D F/U in 3 weeks to check ROM of the left hand and right knee, depending on how she is doing may recommend therapy and she understands this Hand/Wrist Musculoskeletal Exam Inspection Left Erythema: none Ecchymosis: none Edema: none Deformity: none Palpation Left Dorsal hand - 5th metacarpal tenderness to palpation: distal Palpation additional comments: No pain to palpation Range of Motion Range of motion additional comments: Stiffness with ROM of the fingers Neurovascular Left Capillary refill: <3 sec documented in this encounter [facility] 09-16-2024 History of Present illness Narrative Images from the original note were not included. Subjective Patient ID: Emigdio Eli is a 59 y.o. female. LT hand 12 weeks and 5 days s/p LT hand contusion MC block cast intact Pt had tripped over a sidewalk and Fell landing on her left hand and right knee. DOI 06/19/24, she then hit her chest and rolled over onto her left shoulder hitting her shoulder. She was able to walk afterwards, was taken to [facility] ER on 06/19/24 by her partner Pt is RT handed. MC block cast intact, removed today. Notes some rubbing at the fingers. Will get spasms in hand that causes pain between 4th and 5th MC. Some aches with weather changes. Taking TYL prn. States constant numbness in thumb. Denies N/T in other fingers. Denies swelling. Does not wake at HS. Pain is 3/10 today, goes to 5-6/10 with spasms. TX: XR/06/19/24/[facility] LT hand, RT knee, LT shoulder, [facility] ER 06/19/24, norco, IBU, XR NOMS 07/22/24, XR NOMS 08/19/[address] RT knee TB 07/05/24 Notes she started taking fosamax in 2023. States her knee is feeling better. She is FWB in xrom knee brace. Takes brace off when showering and changing clothes. States she occas takes it off when laying down. 12 weeks and 5 days ago, Pt had tripped over a sidewalk and Fell landing on her left hand and right knee. DOI 06/19/24, she then hit her chest and rolled over onto her left shoulder hitting her shoulder. She was able to walk afterwards, was taken to [facility] ER on 06/19/24 by her partner Notes 06/22/24 she fell again on stones [place] a raceway, and cut her LT knee. States she only has discomfort when putting her knee on the ground. Taking TYL prn. Denies topicals. Denies N/T, swelling. Does not wake at HS. Notes she falls often because she has vertigo which she was dx with 6 months ago. TX: XR/06/19/24/[facility] LT hand, RT knee, LT shoulder, [facility] ER 06/19/24, norco, IBU, XR NOMS 06/24, CT [facility] 07/05/24, XR NOMS 08/07/24 RT elbow Pt notes she fell on Monday08/04/23 and hit her right elbow. Only painful if she bumps it. TX: xrays 08/07/24 noms Objective Ortho Exam Knee Musculoskeletal Exam Gait Limp: right Inspection Right Effusion: none Edema: none Ecchymosis: none Deformity: none Alignment: normal Palpation Right Tenderness: none XR hand 3+ views left Imaging Result: Multiple views of left hand showed fracture through the base of the 5th metacrpal to be in unchanged position and alignment with slight increase in callus formation compared to prior x-rays. There was no other acute bony process including but not limited to fracture and/or dislocation. Impression: Healing fracture base of left 5th metacarpal XR knee 3 views right Imaging Result: Multiple views of right patella showed fracture through the superior pole of the patella to be in unchanged position and alignment compared to prior x-rays. There is increased callus formation at the fracture site compared to prior x-rays. There was no acute bony process including but not limited to displacement of current fracture and/or new fracture. Impression: Healing fracture inferior pole right patella. Assessment/Plan Encounter Diagnoses: ICD-10-CM 1. Closed nondisplaced fracture of base of fifth metacarpal bone of left hand with routine healing, subsequent encounter S62.347D XR hand 3+ views left 2. Closed nondisplaced fracture of right patella with routine healing, unspecified fracture morphology, subsequent encounter S82.001D XR knee 3 views right F/U in 3 weeks to check ROM of the left hand and right knee, depending on how she is doing may recommend therapy and she understands this Hand/Wrist Musculoskeletal Exam Inspection Left Erythema: none Ecchymosis: none Edema: none Deformity: none Palpation Left Dorsal hand - 5th metacarpal tenderness to palpation: distal Palpation additional comments: No pain to palpation Range of Motion Range of motion additional comments: Stiffness with ROM of the fingers Neurovascular Left Capillary refill: <3 sec documented in this encounter [facility] 08-19-2024 History of Present illness Narrative Images from the original note were not included. Subjective Patient ID: Emigdio Eli is a 58 y.o. female. LT hand 4 weeks and 5 days s/p LT hand contusion Pt had tripped over a sidewalk and Fell landing on her left hand and right knee. DOI 06/19/24, she then hit her chest and rolled over onto her left shoulder hitting her shoulder. She was able to walk afterwards, was taken to [facility] ER on 06/19/24 by her partner Pt is RT handed. MC block cast intact, removed today. Pain dorsum of hand, between 4th and 5th metacarpals. Notes a few days ago she was having muscle spasms at night which woke her up, in her forearm. This was the only instance she got the spasms. Pain at rest 5/10, with activities (worse at night) 8/10. She is taking TYL prn for the pain. Admits constant numbness in the thumb. Denies swelling. TX: XR/06/19/24/[facility] LT hand, RT knee, LT shoulder, [facility] ER 06/19/24, norco, IBU, XR NOMS 07/22/24, XR NOMS 08/19/24 RT Elbow Pt notes she fell on 08/04/24 and hit her right elbow. She has not had xrays done. Trace swelling medially. She gets pain if she bumps her elbow. Denies pain at rest. Pain at worst 10/10 if she bumps it. TX: xrays 08/07/24 noms Objective Ortho Exam Hand/Wrist Musculoskeletal Exam Inspection Left Erythema: none Ecchymosis: mild Ecchymosis comment: diffuse in fingers 3-5 and dorsal and palmar hand Edema: mild (in all fingers and dorsal hand) Deformity: none Palpation Left Dorsal hand - 5th metacarpal tenderness to palpation: distal Palpation additional comments: Along 4th and 5th MC Range of Motion Range of motion additional comments: Pain with ROM of the RF and LF Neurovascular Left Capillary refill: <3 sec Knee Musculoskeletal Exam Gait Limp: right Inspection Right Erythema: none Effusion: mild Edema: none Ecchymosis: none Deformity: none Alignment: normal Palpation Right Tenderness: present Tenderness comment: supra patellar bursa and patella tendon, trace over patella, no other pain to palpation Range of Motion Right Active extension: 0 Active flexion: 115 Left Active extension: 0 Active flexion: 120 XR hand 3+ views left Imaging Result: Xrays AP, LAT and OBL of the left hand performed on August 19, 2024 demonstrates callus formation at the base of the 5th Metacarpal. No other fractures noted, no swelling Impression Healing base of 5th MC fracture. Zulema Mackay [employer] Assessment/Plan Encounter Diagnoses: ICD-10-CM 1. Right elbow pain M25.521 2. Closed nondisplaced fracture of base of fifth metacarpal bone of left hand with routine healing, subsequent encounter S62.347D XR hand 3+ views left Discussed to keep her out of the cast and she would like another cast put on. She has a hx of osteoporosis and this is reasonable at this time. Discussed fracture care and treatment. Answered all questions. Also discussed risks for non union. reviewed with the patient cast care and signs and symptoms of complications and what to do if any occur. The patient is advised to seek medical attention or call if any problems or concerns. reviewed with the patient cast care and signs and symptoms of complications and what to do if any occur. The patient is advised to seek medical attention or call if any problems or concerns. 2 rolls MC block cast applied, f/U in 4 weeks with xrays of the left hand documented in this encounter [facility] 08-07-2024 History of Present illness Narrative Images from the original note were not included. Subjective Patient ID: Emigdio Eli is a 58 y.o. female. RT Knee CT RT knee [facility] 07/05/24 Notes she started taking fosamax this past month. States her knee is feeling better. States she fell on Monday and injured her RT elbow, did not injure her knee. She is FWB in xrom knee brace states. States she wears the immobilizer most of the time, and she takes the immobilizer off at night because she cannot sleep with it on. She has an enrike wrap and another sleeve brace under the immobilizer to keep it from sliding. 7 weeks ago, Pt had tripped over a sidewalk and Fell landing on her left hand and right knee. DOI 06/19/24, she then hit her chest and rolled over onto her left shoulder hitting her shoulder. She was able to walk afterwards, was taken to [facility] ER on 06/19/24 by her partner Notes 06/22/24 she fell again on stones at a raceway, and cut her LT knee. She notes she is able to walk better but to lift it up to get over something has increasing pain. She has never injured the knee in the past. Anterior knee pain which comes and goes. Describes pain as a dull ache. Denies radiation. Denies pain at rest. Pain at worst 5/10 with prolonged walking, and at night. Limited ROM, painful to fully bend. Denies N/T. No longer icing or using heating pad. Pain worse with a lot of walking and when lifting her leg to go over her dogs gate. Admits waking at night. Taking rapid release TYL as needed. Denies cracking/popping. Denies locking/catching. Admits giving out sensation. Notes she falls often because she has vertigo which she was dx with 6 months ago. TX: XR/06/19/24/[facility] LT hand, RT knee, LT shoulder, [facility] ER 06/19/24, norco, IBU, XR NOMS 06/24, CT [facility] 07/05/24, XR NOMS 08/07/24 RT elbow Pt notes she fell on Monday and hit her right elbow. She has not had xrays done. Trace swelling medially Objective Ortho Exam Knee Musculoskeletal Exam Gait Limp: right Inspection Right Erythema: none Effusion: mild Edema: none Ecchymosis: none Deformity: none Alignment: normal Palpation Right Tenderness: present Tenderness comment: over patella Range of Motion Range of motion additional comments: Not tested due to fracture Trace swelling medial elbow, no bruising, pain over the medial epicondyle to palpation, full rom with pain of the elbow XR knee 3 views right Imaging Result: Xrays AP, LAT and sunrise view of the right knee performed on August 07, 2024 is unremarkable for patella fracture, the patella fracture that was seen on CT scan is not visible on todays xrays. Impression Suspected healing non displaced patella fracture Zulema Apling [employer] XR elbow 1 or 2 views right Imaging Result: Xrays AP and LAT of the right elbow performed on August 07, 2024 demonstrates no swelling, no fractures appreciated, joint congruent. Impression Unremarkable xrays of the right elbow Zulema Mackay [facility] Assessment/Plan Encounter Diagnoses: ICD-10-CM 1. Closed nondisplaced fracture of right patella with routine healing, unspecified fracture morphology, subsequent encounter S82.001D XR knee 3 views right 2. Right elbow pain M25.521 XR elbow 1 or 2 views right F/U in 4 weeks with xrays of the patella, she may take off to bathe otherwise should wear at all times. She may wbat in the brace. Discussed fracture care and treatment. Answered all questions. Also discussed risks for non union. In regards to the right elbow, RICE therapy, f/U in 2 weeks to see how she is doing. documented in this encounter [facility] 07-22-2024 History of Present illness Narrative Images from the original note were not included. Subjective Patient ID: Emigdio Eli is a 58 y.o. female. LT hand 4 weeks and 5 days s/p LT hand contusion Pt had tripped over a sidewalk and Fell landing on her left hand and right knee. DOI 06/19/24, she then hit her chest and rolled over onto her left shoulder hitting her shoulder. She was able to walk afterwards, was taken to [facility] ER on 06/19/24 by her partner Pt is RT handed. MC block cast intact. Pain is between LF and RF. Pain at rest 5/10, with activities (worse at night) 8/10. She is taking motrin prn for the pain. Admits constant numbness in the thumb. Denies swelling. TX: XR/06/19/24/[facility] LT hand, RT knee, LT shoulder, [facility] ER 06/19/24, norco, IBU, XR NOMS 07/22/24 Here with her partner Objective Ortho Exam Hand/Wrist Musculoskeletal Exam Inspection Left Erythema: none Ecchymosis: mild Ecchymosis comment: diffuse in fingers 3-5 and dorsal and palmar hand Edema: mild (in all fingers and dorsal hand) Deformity: none Palpation Left Dorsal hand - 5th metacarpal tenderness to palpation: distal Palpation additional comments: Along 4th and 5th MC Range of Motion Range of motion additional comments: Pain with ROM of the RF and LF Neurovascular Left Capillary refill: <3 sec Knee Musculoskeletal Exam Gait Limp: right Inspection Right Erythema: none Effusion: mild Edema: none Ecchymosis: none Deformity: none Alignment: normal Palpation Right Tenderness: present Tenderness comment: supra patellar bursa and patella tendon, trace over patella, no other pain to palpation Range of Motion Right Active extension: 0 Active flexion: 115 Left Active extension: 0 Active flexion: 120 XR hand 3+ views left Imaging Result: Xrays AP, LAT and OBL of the left hand performed on July 22, 2024 demonstrates healing base of the 5th MC fracture. No other fracture noted. Impressions Healing 5th MC base fracture. Zulema Mackay [employer] Assessment/Plan Encounter Diagnoses: ICD-10-CM 1. Left hand pain M79.642 XR hand 3+ views left 2. Contusion of dorsum of left hand S60.222A 3. Closed nondisplaced fracture of base of fifth metacarpal bone of left hand with routine healing, subsequent encounter S62.347D LT hand Discussed fracture care and treatment. Answered all questions. Also discussed risks for non union. reviewed with the patient cast care and signs and symptoms of complications and what to do if any occur. The patient is advised to seek medical attention or call if any problems or concerns. reviewed with the patient cast care and signs and symptoms of complications and what to do if any occur. The patient is advised to seek medical attention or call if any problems or concerns. 2 rolls MC block cast applied, f/U in 4 weeks with xrays of the left hand documented in this encounter [facility] 07-10-2024 History of Present illness Narrative Images from the original note were not included. Subjective Patient ID: Emigdio Eli is a 58 y.o. female. RT Knee CT RT knee [facility] 07/05/24 3 weeks ago, Pt had tripped over a sidewalk and Fell landing on her left hand and right knee. DOI 06/19/24, she then hit her chest and rolled over onto her left shoulder hitting her shoulder. She was able to walk afterwards, was taken to [facility] ER on 06/19/24 by her partner [...] was dx with 6 months ago. TX: XR/06/19/24/[facility] LT hand, RT knee, LT shoulder, [facility] ER 06/19/24, norco, IBU, XR NOMS 06/24, CT [facility] 07/05/24 Objective Ortho Exam Knee Musculoskeletal Exam Gait Limp: right Inspection Right Erythema: none Effusion: mild Edema: none Ecchymosis: none Deformity: none Alignment: normal Palpation Right Tenderness: present Tenderness comment: over patella Range of Motion Range of motion additional comments: Not tested due to fracture I reviewed the ct of the right knee done at [facility] on 07/05/24 reveals a non displaced [...] or polycentric), positional orthosis, rigid support, prefabricated, [id number] knee brace. Brace is locked at 0 [...] in the brace documented in this encounter [facility] 06-24-2024 History of Present illness Narrative Images from the original note were not included. Subjective Patient ID: Emigdio Eli is a 58 y.o. female. LT hand/RT knee Pt had tripped over a sidewalk and Fell landing on her left hand and right knee. DOI 06/19/24, she then hit her chest and rolled over onto her left shoulder hitting her shoulder. She was able to walk afterwards, was taken to [facility] ER on 06/19/24 by her partner Notes Monday she fell again on stones at a raceway, but only cut her LT knee. She had xrays done and given script for norco 5/325 #12 and also ibu. LT Hand Pt is RT handed. Presents with ENRIKE wrap which she wears all the time since going to the hospital except at night she removes it, sometimes she does not sleep with it. She has not injured this hand in the past. Pain at rest 8/10. Pain at worst 10/10 with certain movements. Constant pain diffuse in hand and wrist. Admits constant numbness in all fingers and hand since the fall. Admits constant swelling in her hand and fingers. She is icing w/o relief. Admits IBU w/o relief. Admits waking at night. TX: XR/06/19/24/[facility] LT hand, RT knee, LT shoulder, [facility] ER 06/19/24, norco, IBU, RT Knee She notes she is able to walk better but to lift it up to get over something has increasing pain. She notes she is 50-60% improved since the injury, pain is superior. Presents with enrike wrap she wears all the time since going to the hospital. She has never injured the knee in the past. Constant knee pain, anteriorly. Denies radiation. Pain at rest 6/10. Pain at worst 8/10 with prolonged walking. Limited ROM, painful to fully bend. Denies N/T. Admits ice, she thinks there is fluid on the knee. Also uses a heating pad with some relief. Pain worse with a lot of walking and when lifting her leg to go over her dogs gate. Admits waking at night. Admits IBU with little relief. Denies cracking/popping. She believes it locks sometimes. Admits giving out sensation. Notes she falls often because she has vertigo which she was dx with 6 months ago. TX: XR/06/19/24/[facility] LT hand, RT knee, LT shoulder, [facility] ER 06/19/24, norco, IBU, XR NOMS 06/24 Here with her partners son trey Objective Ortho Exam Hand/Wrist Musculoskeletal Exam Inspection Left Erythema: none Ecchymosis: mild Ecchymosis comment: diffuse in fingers 3-5 and dorsal and palmar hand Edema: mild (in all fingers and dorsal hand) Deformity: none Palpation Left Dorsal hand - 5th metacarpal tenderness to palpation: distal Palpation additional comments: Along 4th and 5th MC Range of Motion Range of motion additional comments: Pain with ROM of the RF and LF Neurovascular Left Capillary refill: <3 sec Knee Musculoskeletal Exam Gait Limp: right Inspection Right Erythema: none Effusion: mild Edema: none Ecchymosis: none Deformity: none Alignment: normal Palpation Right Tenderness: present Tenderness comment: supra patellar bursa and patella tendon, trace over patella, no other pain to palpation Range of Motion Right Active extension: 0 Active flexion: 115 Left Active extension: 0 Active flexion: 120 XR knee 3 views right Imaging Result: June 24, 2024 x-rays AP weight-bearing bilateral knees lateral and sunrise of the right knee demonstrate neutral alignment bilateral knees. The joint spaces are intact. No fractures are detected. Impression: No acute findings on x-rays of the right knee Ronald Jorgensen D.O. I reviewed the xrays of the left hand done at [facility] on 06/19/24 reveals possible 5th MC fracture. I reviewed the xrays of the right knee and reveals possible patella fracture. I reviewed the xrays of the left shoulder and reveals AC and GH arthritis, no fractures noted. I reviewed [facility] ER report from 06/19/24 in addtion, given script for norco and IBU. Assessment/Plan Encounter Diagnoses: ICD-10-CM 1. Left hand pain M79.642 2. Right knee pain, unspecified chronicity M25.561 XR knee 3 views right 3. Contusion of right knee, initial encounter S80.01XA 4. Contusion of dorsum of left hand S60.222A 5. Left shoulder pain, unspecified chronicity M25.512 6. Arthritis of left acromioclavicular joint M19.012 7. Glenohumeral arthritis, left M19.012 Right knee She may continue with enrike wrap, f/U in 3-4 weeks or sooner if increasing issues, harris therapy LT hand Discussed fracture care and treatment. Answered all questions. Also discussed risks for non union. reviewed with the patient cast care and signs and symptoms of complications and what to do if any occur. The patient is advised to seek medical attention or call if any problems or concerns. reviewed with the patient cast care and signs and symptoms of complications and what to do if any occur. The patient is advised to seek medical attention or call if any problems or concerns. 1 roll MC block cast applied, f/U in 3-4 weeks with xrays of the left hand documented in this encounter [facility] 06-13-2024 History of Present illness Narrative [facility] Follow up/ Established patient visit Individuals who were included in, or assisted with the encounter were: Emigdio Lopez Paulie Zoila Monae MD Chief Complaint/Issues: Emigdio Eli is a 58 year old female seen in the [facility] for: Staring spells. Most [...] that she can have it done in [place] but she would rather come here. She [...] unenhanced CT of the brain. Electronically signed: hSari Mahoney. CTA Head and/or Neck - Last [...] which included preparing to see the patient, [id number] patient care, completing clinical documentation, obtaining and/or reviewing separately obtained history, performing a medically appropriate examination, counseling and educating the patient/family/caregiver, ordering medications, tests, or procedures, communicating with other HCPs (not separately reported), and communicating results to the patient/family/caregiver. Zoila Monae MD documented in this encounter [facility] 06-13-2024 Note HNO ID: [id number] Author: ZOILA MONAE MD Service: ? Author Type: Physician Type: Progress Notes Filed: 06/13/2024 13:41 Note Text: [facility] Follow up/ Established patient visit Individuals who were included in, or assisted with the encounter were: Emigdio Eli Zoila Monae MD Chief Complaint/Issues: Emigdio Eli is a 58 year old female seen in the [facility] for: Staring spells. Most [...] that she can have it done in [place] but she would rather come here. She [...] 100 mg b (more content not included)... [facility] 06-11-2024 Note HNO ID: [id number] Author: NARCISA YUSUF MD Service: Neurology General Author Type: Physician Type: Procedures Filed: 06/13/2024 13:25 Note Text: [facility] - Electroencephalogram EMIGDIO ELI : 1965 AGE: 58 SEX: F CSN: [id number] HOSP SVC: LOCATION: ATTENDING PHYSICIAN: DATE OF [...] have been noted. Narcisa Yusuf M.D. Neurology HK:[id number] /[id number] [facility] 06-04-2024 Telephone encounter Note A new neuropsych order has been put in. Thanks Zoila Monae MD [facility] Work Phone: 06-04-2024 Miscellaneous Notes A new neuropsych order has been put in. Thanks Zoila Monae MD documented in this encounter [facility] 06-04-2024 Note HNO ID: [id number] Author: ZOILA MONAE MD Service: ? Author Type: Physician Type: Progress Notes Filed: 06/04/2024 13:22 Note Text: Neuropsychology order had when they tried to get her in. A new order has been put in and good for a year. Zoila Monae MD [facility] 06-04-2024 History of Present illness Narrative Neuropsychology order had when they tried to get her in. A new order has been put in and good for a year. Zoila Monae MD documented in this encounter [facility] 05-28-2024 Telephone encounter Note Call center called the office on patients behalf stating they tried to schedule NEUROPSYCHOLOGICAL TESTING CONSULT But the test is booking out further than the active request. Would need it re ordered for scheduling. [facility] 05-28-2024 Miscellaneous Notes Call center called the office on patients behalf stating they tried to schedule NEUROPSYCHOLOGICAL TESTING CONSULT But the test is booking out further than the active request. Would need it re ordered for scheduling. documented in this encounter [facility] 03-06-2024 History of Present illness Narrative Images from the original note were not included. [facility] General Neurology New Patient Evaluation Consulting Provider: Tony Amaya [facility] [address] The patient presents with a chief complaint [...] year old Rh female seen in the [facility] for General Neurology for: Cognitive evaluation and [...] Version 1 Total Score: 17/30 Visuospatial/Executive Alternating Van Lear Making: Patient successfully draws the pattern without [...] (name of hospital, clinic, office). Orientation Score: / Education less than or equal to 12th [...] Abnormal ECG COPD (chronic obstructive pulmonary disease) ([facility]) Hyperlipidemia Past Surgical History: Procedure Laterality [...] signed: Karthikeyan Linn. Outside Data/Labs: 01/2024 at [facility]: Tox screen negative, Etoh negative, CBC is normal, CMP is normal, Folate 34, B12 148, TSH 0.01 IMPRESSION: Unremarkable intracranial CT angiogram. Unremarkable unenhanced CT of the brain. Unremarkable extracranial CT angiogram Subjective Patient-Entered Data: 03/04/24 - GENERAL NEUROLOGY SCORES I spent a total of 55 minutes on the date of the service which included preparing to see the patient, [id number] patient care, completing clinical documentation, obtaining and/or reviewing separately obtained history, performing a medically appropriate examination, counseling and educating the patient/family/caregiver, ordering medications, tests, or procedures, communicating with other HCPs (not separately reported), and communicating results to the patient/family/caregiver. Zoila Monae MD documented in this encounter [facility] 03-06-2024 Note HNO ID: [id number] Author: ZOILA MONAE MD Service: ? Author Type: Physician Type: Progress Notes Filed: 03/06/2024 15:39 Note Text: [facility] for General Neurology New Patient Evaluation Consulting Provider: Tony Amaya [address] [facility] [address] The patient presents with a chief complaint [...] year old Rh female seen in the [facility] for General Neurology for: Cognitive evaluation and [...] for low IQ. She worked in a [employer] shop and only worked 6 months. She [...] and no carotid or cranial bruit auscultated [place] Cognitive Assessment (MoCA) Version 1 Total Score: 17/30 Visuospatial/Executive Alternating Van Lear Making: Patient successfully draws the (more content not included)... 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 Patient to discharge home this evening. [facility] 01-05-2024 Note Occupational Therapy Occupational Therapy Treatment Patient Name: Emigdio Eli : 1965 Today's Date: 01/05/2024 01/05/24 0852 Time Calculation Start Time 0852 Stop Time 0918 Time Calculation (min) 26 min Problem List Patient Active Problem List Diagnosis Abdominal pain Constipated Dyspepsia COPD (chronic obstructive pulmonary disease) ([facility]) CURRAN (dyspnea on exertion) Pacemaker Hyperlipidemia Dizziness Unspecified severe protein-calorie malnutrition (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 [facility] 01-04-2024 Note Hospital Medicine Daily Progress Note - 01/04/2024 1:18 PM; Room: [address] [place] [address] Admission: 01/01/2024 9:17 PM; Length of stay: 0 days THE HOSPITALIST TEAM PREFERS TO USE [facility] FOR COMMUNICATION 7AM-7PM. IF I DO NOT RESPOND WITHIN 15 MINUTES, PLEASE PAGE ME/CALL THROUGH THE HEAD COOK. FROM 7PM-7AM, PLEASE PAGE [phone](COVR) Code Status: Full Code Barriers to Discharge: [...] 1.66 01/02/2024 Lab Results Component Value Date [id number] 148 (L) 01/03/2024 Imaging ECG 12 lead Atrial-paced rhythm Right axis deviation Pulmonary disease pattern Abnormal ECG When compared with ECG of 30-MAR-2020 12:22, Electronic atrial pacemaker has replaced Sinus rhythm Vent. rate has increased BY 26 BPM QRS duration has decreased Nonspecific T wave abn (more content not included)... [facility] 01-03-2024 Note Physical Therapy Mckenzie wright Patient [...] facilitate returning to/exceedi (more content not included)... [facility] 01-03-2024 Note Adult Nutrition Asse ssment: Name: Emigdio Eli Date: 1965 Date of Visit: 01/03/24 Admission Dx: Dizziness [R42] Nausea and vomiting, unspecified vomiting type [R11.2] Reason for assessment: high risk and MD referral HR: po intake, BMI MD Consult: underweight Information obtained from: patient, medical record, and nursing Past Medical History: Diagnosis Date Abnormal ECG COPD (chronic obstructive pulmonary disease) (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 [facility] 01-03-2024 Note Hospital Medicine Daily Progress Note - 01/03/2024 9:20 AM; Room: 41794179-01 Admission: 01/01/2024 9:17 PM; Length of stay: 0 days THE HOSPITALIST TEAM PREFERS TO USE [employer] FOR COMMUNICATION 7AM-7PM. IF I DO NOT RESPOND WITHIN 15 MINUTES, PLEASE PAGE ME/CALL THROUGH THE HEAD COOK. FROM 7PM-7AM, PLEASE PAGE [phone](COVR) Code Status: Full Code Barriers to Discharge: [...] 25 mg as needed for dizziness and emtr-ipe-eszitui Tylenol as needed for headaches. -Patient scheduled [...] 1.66 01/02/2024 Lab Results Component Value Date [id number] 148 (L) 01/03/2024 Imaging ECG 12 lead [...] OT Discharge Recommendations: Home Signed Sara Macdonald [facility] Medicine 01/03/2024 9:20 AM [facility] 01-03-2024 Note Occupational Therapy Occupational Therapy Evaluation [...] Level of Function Prior Function Level of [place]: Independent with ADLs and functional transfers, Independent [...] Assist/Contact Guard/Supervision) Taking (more content not included)... [facility] 01-02-2024 Note 01/02/24 1201 Admission Assessment Questions [...] Discharge? No Does the patient have a director of casework services assigned to them through their insurance? No [...] to send link and activate MyChart? 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 She relies on friends or other family members for transportation as no one in the family has their license. Denies financial hardship. Denies further social work needs. [facility] 01-02-2024 Note . Hospital Medicine History and Physical 01/02/2024 12:47 AM THE HOSPITALIST TEAM PREFERS TO USE [facility] FOR COMMUNICATION 7AM-7PM. IF I DO NOT RESPOND WITHIN 15 MINUTES, PLEASE PAGE ME/CALL THROUGH THE HEAD COOK. FROM 7PM-7AM, PLEASE PAGE [phone](COVR) Chief Complaint Chief Complaint Patient presents with [...] exertion) 05/03/2023 COPD (chronic obstructive pulmonary disease) ([facility]) Pacemaker Hyperlipidemia Abdominal pain 10/13/2014 [...] T4 -Continued levo (more content not included)... [facility] 08-12-2022 History and physi leandro note Note Date/Time August 04, 2022 3:52pm [facility] [address] [place] [address] Cardiothoracic Surgery H&P Signed Patient: Emigdio Eli MR#: [id number] : 1965 Acct:[id number] Age/Sex: 56 / F Adm Date: 2 Loc: MO Room: Type: PRE [facility] Attending Dr: Rodolfo Harley MD Copies to: [...] IgG IgM and IgA were all negative. Anti-UT-3 antibodies were 5.0. ?P ANCA was 1:80. 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 We will give 100 mg of IV Solu-Cortef on-call to the OR. We will utilize vancomycin and Levaquin given the questionable history of penicillin allergy with hives as a baby, although she states she recently had penicillin without issues. Documented By: Rodolfo Harley MD 08/04/22 1223 Signed By: <Electronically signed by MD Rodolfo Harley> 08/12/22 1345 [facility] Work Phone: 1(829) 189-309611-11-2022 Hospital Discharge instructionsAmbulatory Orders* Initiate Home Health Time Frame: 08/12/22, Location: Determined By Patient Additional Instructions no lifting 5-10 lbs. Continue Peridex mouthwash. May remove dressing tomorrow. Daily showers with Betasept wash. No driving.[facility] Work Phone: 1(130) 929-860611-11-2022 Progress note Author Monika Meza [facility] August 12, 2022 11:59am Note Date/Time August 12, 2022 8:13am [facility] [address] [place] [address] Pulmonology Progress Note Signed Patient: Emigdio Eli MR#: [id number] : 1965 Acct:[id number] Age/Sex: 56 / F Adm Date: 2 Loc: Room: [address] [place] [address] Type: REG SDC Attending Dr: Rodolfo Harley [...] will be available as needed. Documented By: Monika Meza MD 2 0811 Signed By: <Electronically signed by MD Monika Meza> 08/12/22 6115 [facility] Work Phone: 1(248) 864-311011-10-2022 Progress note Author Monika Meza [facility] August 11, 2022 10:07am Note Date/Time August 11, 2022 7:43am [facility] [address] [place] [address] Pulmonology Progress Note Signed Patient: Emigdio Eli MR#: [id number] : 1965 Acct:[id number] Age/Sex: 56 / F Adm Date: 2 Loc: Room: [address] [place] [address] Type: REG [facility] Attending Dr: Rodolfo Harley MD Copies to: [...] not make any changes otherwise. Documented By: Monika Meza MD 2 5976 Signed By: <Electronically signed by MD Monika Meza> 08/11/[address] [place] [address] Work Phone: 1(999) 666-312411-09-2022 Consult note Author Monika Meza [facility] August 10, 2022 5:46pm Note Date/Time August 10, 2022 5 :41pm [facility] [address] [place] [address] Pulmonology Consult Note Signed Patient: Emigdio Eli MR#: [id number] : 1965 Acct:[id number] Age/Sex: 56 / F Adm Date: 2 Loc: Room: [address] [place] [address] Type: REG SD Attending Dr: Rodolfo Harley MD Copies to: MD Monika Carrera MD Douglas M Hoy, MD~ HPI Date/Time of Consultation: Date of Service: 08/10/2022 Time of Service: 17:35 Consulting Provider: Monika Meza Requesting Provider: Rodolfo Harley History of Present Illness History of present illness: Ms. Eli is a 56 year old female seen at the request of the cardiothoracic surgery service for history of interstitial lung disease. Patient has been followed by Dr. Nadege Izquierdo at [place] with complaints of dyspnea on exertion as [...] Medical History (Updated 08/10/22 @ 17:40 by Monika Meza MD) Breast lump 10 small tumors, [...] and provide assistance as able. Documented By: Monika Meza MD 2 1732 Signed By: <Electronically signed by MD Monika Meza> 08/10/22 1746 [facility] Work Phone: Evaluation noteNo assessment information available [facility] Work Phone: Evaluation note* Diagnosis Onset Date Resolution Status Bipolar 1 disorder acute Bronchiectasis acute Hypercholesteremia acute Hypothyroidism acute Interstitial lung disease ac [facility] Work Phone: Evaluation note* Diagnosis Onset Date Resolution Status Bipolar 1 disorder acute Hypercholesteremia acute Hypothyroidism acute Interstitial lung disease [facility] Bipolar 1 disorder acute Bronchiectasis acute Hypercholesteremia acute Hypothyroidism acute Interstitial lung disease ac [facility] Work Phone: Evaluation note* Diagnosis Memory deficit- Primary Memory loss Auditory hallucinations Hallucinations Mentally challenged Unspecified intellectual disabilities [facility] Memory deficit- Primary Memory loss Auditory hallucinations Hallucinations Mentally challenged Unspecified intellectual disabilities [facility] Diagnosis Memory deficit Memory loss Auditory hallucinations Hallucinations [facility] Diagnosis Transient neurological symptoms- Primary [facility] Diagnosis Closed nondisplaced fracture of right patella, unspecified fracture morphology, initial encounter- Primary Right knee pain, unspecified chronicity documented in [facility] encounter [facility]* Diagnosis Left hand pain- Primary Pain in soft tissues of limb Contusion of dorsum of left hand Closed nondisplaced fracture of base of fifth metacarpal bone of left hand with routine healing, subsequent encounter [facility] Diagnosis Right elbow pain- Primary Pain in joint, upper arm Closed nondisplaced fracture of base of fifth metacarpal bone of left hand with routine healing, subsequent encounter [facility] Diagnosis Closed nondisplaced fracture of right patella with routine healing, unspecified fracture morphology, subsequent encounter- Primary Right elbow pain Pain in joint, upper arm documented in this encounter [facility]* Diagnosis Left hand pain- Primary Pain in soft tissues of limb Right knee pain, unspecified chronicity Contusion of right knee, initial encounter Contusion of dorsum of left hand Left shoulder pain, unspecified chronicity 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, left [facility]* Diagnosis Closed nondisplaced fracture of base of fifth metacarpal bone of left hand with routine healing, subsequent encounter- Primary Closed nondisplaced fracture of right patella with routine healing, unspecified fracture morphology, subsequent encounter [facility] Diagnosis Closed nondisplaced fracture of base of fifth metacarpal bone of left hand with routine healing, subsequent encounter- Primary Closed nondisplaced fracture of right patella with routine healing, unspecified fracture morphology, subsequent encounter [facility]* Diagnosis Finger stiffness, left- Primary Closed nondisplaced fracture of base of fifth metacarpal bone of left hand with routine healing, subsequent encounter [facility]* Diagnosis Finger stiffness, left- Primary [facility]* Diagnosis Finger stiffness, left- Primary [facility]* Diagnosis Finger stiffness, left- Primary [facility]* Diagnosis Finger stiffness, left- Primary Closed nondisplaced fracture of base of fifth metacarpal bone of left hand with routine healing, subsequent encounter- Primary Closed nondisplaced fracture of right patella with routine healing, unspecified fracture morphology, subsequent encounter [facility]* Diagnosis Closed nondisplaced fracture of base of fifth metacarpal bone of left hand with routine healing, subsequent encounter- Primary Closed nondisplaced fracture of right patella with routine healing, unspecified fracture morphology, subsequent encounter Numbness and tingling in left hand Disturbance of skin sensation [facility] Diagnosis Numbness and tingling in left hand Disturbance of skin sensation [facility] Outpatient Procedure (Routine) - Authorized Specialty Diagnoses / Procedures Referred By Chris t Referred To Contact [facility] Diagnoses Memory deficit Auditory hallucinations Procedures EPIL EEG ROUTINE ELECTROENCEPHALOGRAM REC COMA/[place] [address] [place] [address] Neurological [facility] [place] [address] Referral ID Status Reason Start Date Expiration Date Visits Requested Visits Authorized [id number] Authorized Auto-Generat ed Referral 03/06/2024 03/06/2025 1 [...] EA ADDL 30 [place] [address] [place] [address] Referral ID Status Reason Start Date Expiration Date Visits Requested Visits Authorized [id number] Ref Not Required PCP Requested Referral 03/06/2024 06/04/2024 1 3 [facility] for referral (narrative)* Outpatient Procedure (Routine) - Closed Specialty Diagnoses / Procedures Referred By Contle t Referred To Contact [facility] Diagnoses Memory deficit Auditory hallucinations Procedures EPIL EEG ROUTINE ELECTROENCEPHALOGRAM REC COMA/[place] [id number] [place] [address] Referral ID Status Reason Start Date Expiration Date V isits Requested Visits Authorized [id number] Closed Auto-Generate d Referral 03/06/2024 03/06/2025 1 1 [facility] for visit Narrative* Outpatient Procedure (Routine) - Closed Specialty Diagnoses / Procedures Referred By Contac t Referred To Contact [facility] Diagnoses Memory deficit Auditory hallucinations Procedures EPIL EEG ROUTINE ELECTROENCEPHALOGRAM REC COMA/[place] [id number] [place] [address] Referral ID Status Reason Start Date Expiration Date V isits Requested Visits Authorized [id number] Closed Auto-Generate d Referral 03/06/2024 03/06/2025 1 1 [facility] for visit Narrative* Consultation (Routine) - Authorized Specialty Diagnoses / Procedures Referred By Chris cadena Referred To Contact Occupational Therapy / Physical Therapy Diagnoses Closed nondisplaced fracture of base of fifth metacarpal bone of left hand with routine healing, subsequent encounter Procedures UT OFFICE/OUTPATIENT NEW HIGH MDM 60 MINUTES Zulema Mackay NP [address] [facility] [address] [place] [address] Phone: tel: fax: Zehra Bunch, OT [address] [place] [address] Phone: tel: fax:[phone] Referral ID Status Reason Start Date Expiration Date Visits Requested Visits Authorized [id number] Authorized Consult and Treat 10/07/2024 04/05/2025 8 8 [facility] for [facility] Narrative* Consultation (Routine) - Authorized Specialty Diagnoses / Procedures Referred By Chris cadena Referred To Contact Occupational Therapy / Physical Therapy Diagnoses Closed nondisplaced fracture of base of fifth metacarpal bone of left hand with routine healing, subsequent encounter Procedures UT OFFICE/OUTPATIENT NEW HIGH MDM 60 MINUTES Zulema Mackay NP [address] [facility] [address] [place] [address] Phone: tel: fax: Zehra Bunch, OT [address] [place] [address] Phone: tel:[phone] fax:[phone] Referral ID Status Reason Start Date Expiration Date Visits Requested Visits Authorized [id number] Authorized Consult and Treat 10/07/2024 10/01/2025 8 8 [facility]* Consultation (Routine) - Closed Specialty Diagnoses / Procedures Referred By Chris cadena Referred To Contact Neurology Diagnoses Numbness and tingling in left hand Procedures UT OFFICE/OUTPATIENT NEW HIGH MDM 60 MINUTES Zulema Mackay, WEIGHT LOSS PHYSICIAN fax: Monika Vargas, DO [address] [place] [address] Phone: tel: fax: Referral ID Status Reason Start Date Expiration Date V isits Requested Visits Authorized [id number] Closed Specialty Services Required 11/11/2024 05/10/2025 1 1 [facility] Summary Purpose Family History No Family History Records FoundNo Family History Records FoundNo Family History Records FoundNo Family History Records FoundNo Family History Records FoundNo Family History Records FoundNo Family History Records Found Advance Directives No Advanced Directives Records Found Advance Directive Response Recorded Date/ Time Advance Directives No August 05, 2022 8:18am Hospital Course Note MR#: [id number] I [facility] Pt. Name: Emigdio Eli Admitted: 03/30/2020 [...] Hypercholesteremia Hypothyroidism Interstitial lung disease Chief Complaint Admit Date BH November 14, 2024 12:25pm Unknown November 26, 2024 9:50pm Reason for Referral Specialty Diagnoses / Procedures Referred By Contac t Referred To Contact Diagnoses Memory deficit Auditory hallucinations Procedures NEUROPSYCHOLOGICAL TESTING CONSULT NEUROBEHAVIORAL STATUS XM PHYS/QHP 1ST HOUR NEUROPSYCHOLOGICAL TST EVAL PHYS/QHP 1ST HOUR NEUROPSYCHOLOGICAL TST EVAL PHYS/QHP EA ADDL HR PSYCL/NRPSYCL TST TECH 2+ TST 1ST 30 MIN PSYCL/NRPSYCL TST TECH 2+ TST EA ADDL 30 [place] [address] [place] [address] Referral ID Status Reason Start Date Expiration Date Visits Requested Visits Authorized [id number] Ref Not Required PCP Requested Referral 06/04/2024 09/02/2024 1 3 Additional Source Comments INFORMATION SOURCE (unrecogn ized section and content) DATE CREATED AUTHOR 04/23/2020 [facility] DATE CREATED AUTHOR AUTHOR'S ORGANIZ ATION 01/07/2023 [facility] DATE CREATED AUTHOR AUTHOR'S ORGANIZ ATION 06/15/2024 [facility] DATE CREATED AUTHOR AUTHOR'S ORGANIZ ATION 09/22/2024 [facility] DATE CREATED AUTHOR AUTHOR'S ORGANIZ ATION 11/30/2024 [facility] EPIC DATE CREATED AUTHOR AUTHOR'S ORGANIZ ATION 12/01/2024 [facility] DATE CREATED AUTHOR AUTHOR'S ORGANIZ ATION 12/01/2024 [facility] Care Teams (unrecognized sec tion and content) Team Status: Inactive Member Role Status Chucho Harley MD Attending Provider Active Tony Amaya MD Primary Care Provider Active Team Status: Active Member Role Status Chucho Amaya MD Primary Care Provider Active Team Status: Inactive Member Role Status Chucho Amaya MD Primary Care Provider Active Rodolfo Harley MD Attending Provider Active Allyssa Washburn APRN ACNP- Other Provider Active Jonah Badillo MD Other Provider Active Monika Meza MD Other Provider Active Daiana Whitehead MD Other Provider Active Edgardo Espinoza , Other Provider Active Stacey Cuevas MD Other Provider Active Beau Jones MD Other Provider Active Darryl Lambert MD Other Provider Active Giorgi Phillips , Other Provider Active Team Status: Inactive Member Role Status Dates Tony Amaya MD Primary Care Provider Active Rodolfo Harley MD Attending Provider Active Rod Pointer Relationship Specialty Start Date End Date Tony Amaya MD [address] [place] [address] Referring Family Medicine 02/09/24 Rod Pointer Relationship Specialty Start Date End Date Tony Amaya MD [address] [place] [address] Referring Family Medicine 02/09/24 Rod Pointer Relationship Specialty Start Date End Date Tony Amaya MD [address] [place] [phone] Referring Family Medicine 02/09/24 Rod Pointer Relationship Specialty Start Date End Date Tony Amaya MD [address] [place] [phone] Referring Family Medicine 02/09/24 Rod Pointer Relationship Specialty Start Date End Date Tony Amaya MD [address] [place] [phone] PCP - General Family Medicine 06/13/24 Tony Amaya MD [address] [place] [phone] Referring Family Medicine 02/09/24 Rod Pointer Relationship Specialty Start Date End Date Tony Amaya MD [address] [place] [phone] PCP - General Family Medicine 06/24/24 Rod Pointer Relationship Specialty Start Date End Date Tony Amaya MD [address] [place] [address] PCP - General Family Medicine 06/24/24 Rod Pointer Relationship Specialty Start Date End Date Tony Amaya MD [address] [place] [facility] [address] PCP - General Family Medicine 06/24/24 Rod Pointer Relationship Specialty Start Date End Date Tony Amaya MD [address] [place] [facility] [address] PCP - General Family Medicine 06/24/24 Rod Pointer Relationship Specialty Start Date End Date Tony Amaya MD [address] [place] [facility] [place] [address] PCP - General Family Medicine 06/24/24 Rod Pointer Relationship Specialty Start Date End Date Tony Amaya MD [address] [place] [facility] [place] [address] PCP - General Family Medicine 06/24/24 Rod Pointer Relationship Specialty Start Date End Date Tony Amaya MD [address] [place] [facility] [place] [address] PCP - General Family Medicine 06/24/24 Rod Pointer Relationship Specialty Start Date End Date Tony Amaya MD [address] [place] [facility] [place] [address] PCP - General Family Medicine 06/24/24 Rod Pointer Relationship Specialty Start Date End Date Tony Amaya MD [address] [place] [facility] [place] [address] PCP - General Family Medicine 06/24/24 Rod Pointer Relationship Specialty Start Date End Date Tony Amaya MD [address] [facility] [place] [address] PCP - General Family Medicine 06/13/24 Tony Amaya MD [address] [facility] [place] [address] Referring Family Medicine 02/09/24 Rod Pointer Relationship Specialty Start Date End Date Tony Amaya MD [address] [place] [facility] [address] PCP - General Family Medicine 06/24/24 Rod Pointer Relationship Specialty Start Date End Date Tony Amaya MD [address] [place] [facility] [address] PCP - General Family Medicine 06/24/24 Rod Pointer Relationship Specialty Start Date End Date Tony Amaya MD [address] [place] [facility] [place] [address] PCP - General Family Medicine 06/24/24 Rod Pointer Relationship Specialty Start Date End Date Tony Amaya MD [address] [place] [facility] [place] [address] PCP - General Family Medicine 06/24/24 Rod Pointer Relationship Specialty Start Date End Date Tony Amaya MD [address] [place] [facility] [place] [address] PCP - General Family Medicine 06/24/24 Rod Pointer Relationship Specialty Start Date End Date Tony Amaya MD [address] [place] [facility] [place] [address] PCP - General Family Medicine 06/24/24 Rod Pointer Relationship Specialty Start Date End Date Tony Amaya MD [address] [place] [facility] [place] [address] PCP - General Family Medicine 06/24/24 Rod Pointer Relationship Specialty Start Date End Date Tony Amaya MD [address] [place] [facility] [place] [address] PCP - General Family Medicine 06/24/24 Rod Pointer Relationship Specialty Start Date End Date Tony Amaya MD [address] [place] [facility] [place] [address] PCP - General Family Medicine 06/24/24 Rod Pointer Relationship Specialty Start Date End Date Tony Amaya MD [address] [place] [facility] [place] [address] PCP - General Family Medicine 06/24/24 Rod Pointer Relationship Specialty Start Date End Date Tony Amaya MD [address] [place] [facility] [address] PCP - General Family Medicine 06/24/24 Team Status: Active Member Role Status Dates Tony Amaya MD Primary Care Provider Active Start: November 14, 2024 Alejandro Maciel MD Attending Provider Active Start: November 14, 2024 Team Status: Inactive Member Role Status Dates Tony Amaya MD Attending Provider Active Sta rt: November 26, 2024 End: November 26, 2024 Rod Pointer Relationship Specialty Start Date End Date Tony Amaya MD [address] [place] [facility] [place] [address] PCP - General Family Medicine 06/24/24 Goals (unrecognized section and content) Goals may be documented in a n alternate sectionGoals may be documented in an alternate section Source Comments (unrecognize d section and content) In the event this informatio n is protected by the Federal Confidentiality of Alcohol and Drug Abuse Patient Records regulations: The Federal rules restrict any use of the information to criminally investigate or prosecute any alcohol or drug abuse patient.[facility] the event this information is protected by the Federal Confidentiality of Alcohol and Drug Abuse Patient Records regulations: The Federal rules restrict any use of the information to criminally investigate or prosecute any alcohol or drug abuse patient.[facility] the event this information is protected by the Federal Confidentiality of Alcohol and Drug Abuse Patient Records regulations: The Federal rules restrict any use of the information to criminally investigate or prosecute any alcohol or drug abuse patient.[facility] the event this information is protected by the Federal Confidentiality of Alcohol and Drug Abuse Patient Records regulations: The Federal rules restrict any use of the information to criminally investigate or prosecute any alcohol or drug abuse patient.[facility] the event this information is protected by the Federal Confidentiality of Alcohol and Drug Abuse Patient Records regulations: The Federal rules restrict any use of the information to criminally investigate or prosecute any alcohol or drug abuse patient.[facility] Hospital[facility] the event this information is protected by the Federal Confidentiality of Alcohol and Drug Abuse Patient Records regulations: The Federal rules restrict any use of the information to criminally investigate or prosecute any alcohol or drug abuse patient.[facility] Reason for Visit (unrecogniz ed section and content) Reason Comments Dementia cognitive Reason Comments Follow Up Reason Comments Pain Reason Comments Fracture Reason Comments Follow-up Reason Onset Date Comments OT Initial Eval 10/08/2024 Reason Comments Follow-up Reason Onset Date Comments CX OT today 11/01/2024 FOR RECORDS PERTAINING TO PATIENTS WHO ARE [...] BE BASED ON THE PRIMARY CLINICAL RECORDS. [facility] provides no warranty or guarantee of the accuracy or completeness of information in this document.
--- NOTE | 2024-12-01 14:51 | PC.NURSE ---
pt refusing to talk
[2024-12-01 15:22] VITALS: PULSE 70; O2SAT 94
--- NOTE | 2024-12-01 15:27 | ECG_ITS ---
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
--- NOTE | 2024-12-01 15:39 | ED_ITS ---
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 The patient is not taking her meds as prescribed, has become withdrawn and is not eating or drinking like she should. [facility] Behavioral hotline referred the pt to the ED for evaluation and possible psych asdmission. Related Data Home Medications ?Medication ?Instructions ?Recorded ?Confirmed bupropion HCl 300 mg 24 hr tablet, 300 mg PO DAILY 09/25/23 11/25/24 extended release cholecalciferol (vitamin D3) 50 50 mcg PO DAILY 09/25/23 11/25/24 mcg (2,000 unit) capsule citalopram 20 mg tablet 20 mg PO DAILY 09/25/23 11/25/24 lamotrigine 25 mg tablet 50 mg PO BEDTIME 09/25/23 11/25/24 lansoprazole 30 mg capsule,delayed 30 mg PO DAILY 09/25/23 11/25/24 release levothyroxine 125 mcg tablet 125 mcg PO DAILY 09/25/23 11/25/24 simvastatin 20 mg tablet 20 mg PO QPM 09/25/23 11/25/24 docusate sodium 100 mg capsule 100 mg PO DAILY PRN constipation 12/22/23 11/25/24 (Col-Rite) loratadine 10 mg tablet (Allergy 10 mg PO DAILY 12/22/23 11/25/24 Relief (loratadine)) meclizine 25 mg tablet 25 mg PO QID PRN dizziness 07/19/24 11/25/24 alendronate 70 mg tablet 70 mg PO QWEEK 11/25/24 11/25/24 Previous Rx's ?Medication ?Instructions ?Recorded ciprofloxacin HCl 500 mg tablet 500 mg PO BID #14 tabs 11/27/24 (Cipro) oseltamivir 75 mg capsule 75 mg PO BID #6 caps 11/27/24 prednisone 10 mg tablet 40 mg (4 x 10 mg) PO DAILY #32 tabs 11/27/24 Allergies Allergy/AdvReac Type Severity Reaction Status Date / Time codeine Allergy Mild Vomiting Verified 11/25/24 12:33 oxycodone (From Percocet) Allergy Mild Vomiting Verified 11/25/24 12:33 promethazine Allergy Mild Agitated Verified 11/25/24 12:33 Sulfa (Sulfonamide Allergy Mild Vomiting Verified 11/25/24 12:33 Antibiotics) hydromorphone (From Dilaudid) AdvReac Mild Rash Verified 11/25/24 12:33 prochlorperazine (From AdvReac Mild Unknown Verified 11/25/24 12:33 Compazine) [facility] Medical History (Updated 12/01/24 @ 00:00 by ) Hypoxemia ?R09.02 - Hypoxemia (ICD-10) ESE (acute kidney injury) ?N17.9 - Acute kidney failure, unspecified (ICD-10) Flu ?J11.1 - Influenza due to unidentified influenza virus with other respiratory manifestations (ICD-10) GERD (gastroesophageal reflux disease) ?K21.9 - Gastro-esophageal reflux disease without esophagitis (ICD-10) Hypercholesterolemia ?E78.00 - Pure hypercholesterolemia, unspecified (ICD-10) Acute respiratory failure with hypoxia ?J96.01 - Acute respiratory failure with hypoxia (ICD-10) Respiratory distress ?R06.03 - Acute respiratory distress (ICD-10) Neutropenia ?D70.9 - Neutropenia, unspecified (ICD-10) Hypotension due to hypovolemia ?E86.1 - Hypovolemia (ICD-10) Gastroenteritis due to COVID-19 virus ?U07.1 - COVID-19 (ICD-10) ?A08.39 - Other viral enteritis (ICD-10) Dehydration ?E86.0 - Dehydration (ICD-10) ESE (acute kidney injury) ?N17.9 - Acute kidney failure, unspecified (ICD-10) Gastroenteritis ?K52.9 - Noninfective gastroenteritis and colitis, unspecified (ICD-10) COVID ?U07.1 - COVID-19 (ICD-10) COVID-19 ?U07.1 - COVID-19 (ICD-10) Effusion of knee joint right ?M25.461 - Effusion, right knee (ICD-10) Contusion of hand, left ?S60.222A - Contusion of left hand, initial encounter (ICD-10) Chest pain ?R07.9 - Chest pain, unspecified (ICD-10) Hypothyroid ?E03.9 - Hypothyroidism, unspecified (ICD-10) Esophagitis ?K20.90 - Esophagitis, unspecified without bleeding (ICD-10) Pancolitis ?K51.00 - Ulcerative (chronic) pancolitis without complications (ICD-10) Pulmonary hypertension ?I27.20 - Pulmonary hypertension, unspecified (ICD-10) Cholecystitis ?K81.9 - Cholecystitis, unspecified (ICD-10) Depression ?F32.A - Depression, unspecified (ICD-10) On home O2 ?Z99.81 - Dependence on supplemental oxygen (ICD-10) Hyperthyroidism ?E05.90 - Thyrotoxicosis, unspecified without thyrotoxic crisis or storm (ICD-10) Scoliosis ?M41.9 - Scoliosis, unspecified (ICD-10) Emphysema lung ?J43.9 - Emphysema, unspecified (ICD-10) Nausea & vomiting ?R11.2 - Nausea with vomiting, unspecified (ICD-10) Pacemaker ?Z95.0 - Presence of cardiac pacemaker (ICD-10) COPD (chronic obstructive pulmonary disease) ?J44.9 - Chronic obstructive pulmonary disease, unspecified (ICD-10) Surgical History History of tonsillectomy ?Z90.89 - Acquired absence of other organs (ICD-10) H/O right wrist surgery ?Z98.890 - Other specified postprocedural states (ICD-10) H/O colectomy ?Z90.49 - Acquired absence of other specified parts of digestive tract (ICD- 10) Family History Mother Family history of COPD (chronic obstructive pulmonary disease) Grandmother Family history of cancer Sister Family history of diabetes mellitus Father Family history of myocardial infarction Social History (Updated 12/27/23 @ 23:45 by Meghana Lo) Within the past year, how often did you have a drink containing alcohol: never Within the past year, how often did you have six or more drinks on one occasion: never Score interpretation: A score less than 3 is consistent with normal alcohol consumption. 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 Known occupational exposures/hazards: No Highest level of school completed/degree received: 10th grade Do you want help with school or training: No Are you now , , , , never or living with a partner: In a typical week, how many times do you talk on the telephone with family, friends, or neighbors: 3 or more times per week How often do you get together with friends or relatives: 3 or more times per week How often do you attend hoahaoism or buddhist services: 4 or more times per year Do you belong to any clubs or organizations such as hoahaoism groups unions, f raternal or athletic groups, or school groups: yes Total score: 3 Score interpretation: A score of greater than or equal to 2 indicates the lowest level of social isolation. Little interest or pleasure in doing things: not at all Feeling down, depressed, or hopeless: not at all Feel stressed/tense/nervous/anxious/difficulty sleeping: to some extent Life stressors: unknown source of stress Due to disability, difficulty making decisions: No Do you think of yourself as: bisexual Gender Identity: female Exam Narrative Exam Narrative: Nurses notes and vital signs reviewed and patient is not hypoxic. afebrile General: Well-appearing and in no apparent distress. Skin: Warm, dry, no pallor noted. No rash. Head: Normocephalic, atraumatic. Neck: Supple, non-tender. Eye: Pupils are equal, round and EOMI. No scleral icterus. Ears, Nose, Mouth, and Throat: TM are clear, no posterior oropharynx erythema or nasal mucosal hypertrophy, uvula is mid-line Oral mucosa is moist Cardiovascular: Regular Rate and Rhythm without murmur, gallop or rub. Respiratory: No accessory muscle use or respiratory distress. Lungs are clear to auscultation, no wheezing, rales or rhonchi Chest Wall: no tenderness Back: No midline thoracic or lumbar vertebral tenderness. No CVA tenderness Musculoskeletal: normal ROM, no calf or popliteal tenderness, no lower extremity edema/swelling GI: Abdomen is soft, non-distended. Normal bowel sounds. No masses appreciated. No tenderness to palpation. No rebound, guarding, or rigidity noted. Neurological: A&O x4. No cranial nerve dysfunction observed. No truncal ataxia. Moves all extremities. Sensation intact. Psychiatric: Cooperative but minimally interactive. She will follow commands but only voices yes and no answers. Flat affect and depressed mood. Constitutional Vital Signs, click to edit/add: Last Vital Signs Temp 97.8 F 12/01/24 14:42 Pulse 70 12/01/24 14:42 Resp 16 12/01/24 14:42 BP 108/67 12/01/24 14:42 Pulse Ox 94 L 12/01/24 15:22 O2 Del Method Room Air 12/01/24 15:22 Course Vital Signs Vital signs: Vital Signs Temperature 97.8 F 12/01/24 14:42 Pulse Rate 70 12/01/24 14:42 Respiratory Rate 16 12/01/24 14:42 Blood Pressure 108/67 12/01/24 14:42 Pulse Oximetry 94 L 12/01/24 14:42 Oxygen Delivery Method Room Air 12/01/24 14:42 Temperature 97.8 F 12/01/24 14:42 Pulse Rate 70 12/01/24 14:42 Respiratory Rate 16 12/01/24 14:42 Blood Pressure 108/67 12/01/24 14:42 Pulse Oximetry 94 L 12/01/24 15:22 Oxygen Delivery Method Room Air 12/01/24 15:22 MDM - Psych MDM Narrative Medical decision making narrative: Patient's depression has been made acutely worse following 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 EKG, blood and urine ordered to be obtained for medical screening. The patient will be referred for psychiatric evaluation and likely admission since she is not able to care for herself. Ewa, the school library media program director from [employer], came out to see the patient and evaluate her need for urgent psychiatric evaluation and stabilization. Pt signed out to Dr Leblanc to assist with final disposition for this patient. Lab Data Attestation: I reviewed the patient's lab results. Labs: Lab Results 12/01/24 Range/Units 15:09 WBC 3.9 L (4.0-11.0) 10^3/uL RBC 5.51 H (4.20-5.40) 10^6/uL Hgb 15.5 (12.0-16.0) g/dL Hct 48.0 (36.0-48.0) % MCV 87.1 (81.0-99.0) fL MCH 28.1 (26.7-34.0) pg MCHC 32.3 (29.9-35.2) g/dL RDW 12.7 (11.0-15.0) % Plt Count 162 (150-450) 10^3/uL MPV 9.9 (9.5-13.5) fL Neut % (Auto) 70.0 (43.0-75.0) % Lymph % (Auto) 19.0 L (20.5-60.0) % Arthur % (Auto) 8.7 (1.7-12.0) % Eos % (Auto) 1.8 (0.9-7.0) % Baso % (Auto) 0.0 L (0.2-2.0) % Neut # (Auto) 2.7 (1.4-6.5) 10^3/uL Lymph # (Auto) 0.7 L (1.2-3.8) 10^3/uL Arthur # (Auto) 0.3 (0.3-0.8) 10^3/uL Eos # (Auto) 0.1 (0.0-0.7) 10^3/uL Baso # (Auto) 0.0 (0.0-0.1) 10^3/uL Abs Immat Gran (auto) 0.02 (0.00-0.03) 10^3/uL Imm/Tot Granulo (auto) 0.5 (0.0-0.5) % Sodium 138 (136-145) mmol/L Potassium 3.3 L (3.5-5.1) mmol/L Chloride 101 (98-107) mmol/L Carbon Dioxide 29.6 (21.0-32.0) mmol/L Anion Gap 10.7 BUN 15.0 (7.0-18.0) mg/dL Creatinine 1.15 H (0.55-1.02) mg/dL Est GFR ( Amer) 58 L (>=60 mL/min/1.73m^2) Est GFR (Non-Af Amer) 48 L (>=60 mL/min/1.73m^2) BUN/Creatinine Ratio 13.0 Glucose 76 (74-106) mg/dL Calcium 9.0 (8.5-10.1) mg/dL Salicylates <2.8 (<=19.9) mg/dL Acetaminophen <2.0 L (10.0-30.0) ug/mL Ethanol Quant <3 mg/dL ECG Data Attestation: I personally reviewed and interpreted this ECG as follows: Interpretation: EKG interpretation: Emergency Department physician interpretation. Electronic atrial pacemaker. Discharge Plan Discharge Chief Complaint: Psychiatric Symptoms Patient Disposition: Still a Patient Prescriptions / Home Meds: No Action meclizine 25 mg tablet 25 mg PO QID PRN (Reason: dizziness) alendronate 70 mg tablet 70 mg PO QWEEK oseltamivir 75 mg Capsule 75 mg PO BID Qty: 6 0RF ciprofloxacin HCl [Cipro] 500 mg tablet 500 mg PO BID Qty: 14 0RF prednisone 10 mg tablet 40 mg PO DAILY Qty: 32 0RF Rx Instructions: 4/day for 3 days, 3/day for 3 days, 2/day for 3 days, 1/day for 3 days, 1/2 /day for 4 days bupropion HCl 300 mg tablet extended release 24 hr 300 mg PO DAILY cholecalciferol (vitamin D3) 50 mcg (2,000 unit) capsule 50 mcg PO DAILY citalopram 20 mg tablet 20 mg PO DAILY lamotrigine 25 mg tablet 50 mg PO BEDTIME lansoprazole 30 mg capsule,delayed release(DR/EC) 30 mg PO DAILY levothyroxine 125 mcg tablet 125 mcg PO DAILY simvastatin 20 mg tablet 20 mg PO QPM loratadine [Allergy Relief (loratadine)] 10 mg tablet 10 mg PO DAILY docusate sodium [Col-Rite] 100 mg capsule 100 mg PO DAILY PRN (Reason: constipation) Print Language: Urdu Referrals: Paulo Turner MD [Primary Care Provider] - 1 week
[2024-12-01 15:45] LABS: Eosinophils Absolute Auto 0.1 10^3/uL (0.0-0.7); Eosinophils Percent Auto 1.8 % (0.9-7.0); Hemoglobin 15.5 g/dL (12.0-16.0); Immature Granulocytes Abs Auto 0.02 10^3/uL (0.00-0.03); Immature Granulocytes Pct Auto 0.5 % (0.0-0.5); Lymphocytes Absolute Auto 0.7 10^3/uL (1.2-3.8); Mean Corpuscular HGB Conc 32.3 g/dL (29.9-35.2); Mean Corpuscular Hemoglobin 28.1 pg (26.7-34.0); Mean Corpuscular Volume 87.1 fL (81.0-99.0); Mean Platelet Volume 9.9 fL (9.5-13.5); Monocytes Absolute Auto 0.3 10^3/uL (0.3-0.8); Monocytes Percent Auto 8.7 % (1.7-12.0); Neutrophils Absolute Auto 2.7 10^3/uL (1.4-6.5); Platelet Count 162 10^3/uL (150-450); Red Blood Count 5.51 10^6/uL (4.20-5.40); Red Cell Distribution Width 12.7 % (11.0-15.0); White Blood Count 3.9 10^3/uL (4.0-11.0)
[2024-12-01 15:55] LABS: Anion Gap 10.7; Carbon Dioxide 29.6 mmol/L (21.0-32.0); Chloride 101 mmol/L (98-107); Estimated GFR (African America 58 (>=60 mL/min/1.73m^2); Estimated GFR (Non-African Ame 48 (>=60 mL/min/1.73m^2); Glucose 76 mg/dL (74-106); Potassium 3.3 mmol/L (3.5-5.1); Salicylate <2.8 mg/dL (<=19.9); Sodium 138 mmol/L (136-145)
[2024-12-01 15:56] LABS: Acetaminophen <2.0 ug/mL (10.0-30.0); Ethanol <3 mg/dL
[2024-12-01 18:56] VITALS: BP 136/79; PULSE 76; O2SAT 99
--- NOTE | 2024-12-01 19:07 | PC.NURSE ---
I have assumed care of this pt. Awaiting urine specimen so pt can be cleared to go to [facility].
[2024-12-01 19:22] LABS: Bilirubin Urine MODERATE (NEGATIVE); Blood Urine NEGATIVE (NEGATIVE); Clarity Urine CLEAR (CLEAR); Color Urine YELLOW (YELLOW); Glucose Urine UA NEGATIVE (NEGATIVE); Ketones Urine >=80 mg/dL (NEGATIVE); Leukocyte Esterase Urine NEGATIVE (NEGATIVE); Nitrite Urine NEGATIVE (NEGATIVE); Protein Urine TRACE mg/dL (NEG/TRACE); Specific Gravity Urine 1.025 (1.005-1.025)
[2024-12-01 19:29] LABS: Bacteria Urine TRACE #/HPF (NONE SEEN); Cast Seen? NONE SEEN #/LPF (NONE SEEN); Crystals Seen? None Seen #/HPF (None Seen); Mucus Urine LARGE (NONE SEEN); RBC Urine 0-2 #/HPF (0-2); Squamous Epithelial Cell Urine RARE #/LPF (NONE/RARE); Urine Culture Indicated NO; WBC Urine 0-2 #/HPF (NONE SEEN)
[2024-12-01 19:30] LABS: Amphetamine Screen Urine NEGATIVE (NEGATIVE); Barbiturates Screen Urine NEGATIVE (NEGATIVE); Benzodiazepines Screen Urine NEGATIVE (NEGATIVE); Buprenorphine Screen Urine NEGATIVE (NEGATIVE); Cannabinoid Screen Urine NEGATIVE (NEGATIVE); Cocaine Screen Urine NEGATIVE (NEGATIVE); Methadone Screen Urine NEGATIVE (NEGATIVE); Methamphetamines Screen Urine NEGATIVE (NEGATIVE); Opiate Screen Urine NEGATIVE (NEGATIVE); Oxycodone Screen Urine NEGATIVE (NEGATIVE); Phencyclidine Screen Urine NEGATIVE (NEGATIVE); Tricyclic Antidepressant Urine NEGATIVE (NEGATIVE)
--- NOTE | 2024-12-01 19:39 | PC.NURSE ---
[facility] car with eta of 10-15 minutes. Pt informed.
--- NOTE | 2024-12-01 19:46 | PC.NURSE ---
Report called to [phone] S nurse.
--- NOTE | 2024-12-01 20:02 | PC.NURSE ---
Continue to await arrival of [facility] car. Friend at the bedside continued.
--- NOTE | 2024-12-01 20:17 | PC.NURSE ---
[facility] here. Report and update given.
== END 2024-12-01 20:20 ==
PROVIDERS: Emergency Provider Emergency Medicine; PCP Family Medicine
DX: F32.9 Major depressive disorder, single episode, unspecified (principal); Z91.148 Patient's other noncompliance with medication regimen for other reason; Z90.49 Acquired absence of other specified parts of digestive tract
CPT/HCPCS: 36415; 80048; 80179; 80307; 80320; 80329; 81001; 85025; 93005; 99285

== ENCOUNTER 2024-12-11 09:35 | Outpatient (OUT) | payer OTHER, SELFPAY ==
--- NOTE | 2024-12-11 09:42 | XR_ITS ---
The [address] [address] Patient Name: EMIGDIO ELI MRN: [id number] date: 1965 Sex: F Assigned Patient Location: [facility] Current Patient Location: [facility] Accession/Order Number: [id number] Exam Date: 12/11/2024 10:31 Report Date: 12/11/2024 10:40 At the request of: TONY AMAYA MD Procedure: XR pelvis 1-2V CLINICAL DATA: Low back pain LUMBAR SPINE -4 views: COMPARISON: CT 12/20/2023 AP, lateral and both oblique views of the lumbosacral junction were obtained. There is osteopenia. 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 Mild wedge deformity at the superior endplate of L1 is again noted. There is no acute fracture. Alignment is maintained on the lateral view. The scoliotic curvature and centering on the lateral view slightly limited evaluation of the disc spaces. There is at least some disc space narrowing at L4-5. Mild endplate spurring and facet hypertrophy are present. The SI joints are intact. There are no paraspinal soft tissue abnormalities. XR/XR lumbar spine min 4V IMPRESSION: OSTEOPENIA, SCOLIOSIS AND MILD DEGENERATIVE CHANGES. OLD COMPRESSION DEFORMITY AT L1. AP PELVIS COMPARISON: 12/27/[address] 12/20/2023 There is osteopenia. No acute fractures are identified. The hip joint spaces are maintained. There is no prominent hypertrophy. The SI joints are intact. Bone islands are again seen at the left sacrum, ilium and pubic symphysis. There is levoscoliotic curvature and degenerative change at the lower imaged lumbar spine. IMPRESSION: NO ACUTE BONY FINDINGS. Impression dictated by: Lou Young M.D.12/11/2024 10:40 AM Dictation Location: [place] [address] Electronically authenticated by: [id number] Y Date: 12/11/2024 10:40
--- NOTE | 2024-12-11 09:42 | XR_ITS ---
The [address] [address] Patient Name: EMIGDIO ELI MRN: [id number] date: 1965 Sex: F Assigned Patient Location: [facility] Current Patient Location: [facility] Accession/Order Number: [id number] Exam Date: 12/11/2024 10:31 Report Date: 12/11/2024 10:40 At the request of: TONY AMAYA MD Procedure: XR pelvis 1-2V CLINICAL DATA: Low back pain LUMBAR SPINE -4 views: COMPARISON: CT 12/20/2023 AP, lateral and both oblique views of the lumbosacral junction were obtained. There is osteopenia. 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 Mild wedge deformity at the superior endplate of L1 is again noted. There is no acute fracture. Alignment is maintained on the lateral view. The scoliotic curvature and centering on the lateral view slightly limited evaluation of the disc spaces. There is at least some disc space narrowing at L4-5. Mild endplate spurring and facet hypertrophy are present. The SI joints are intact. There are no paraspinal soft tissue abnormalities. XR/XR pelvis 1-2V IMPRESSION: OSTEOPENIA, SCOLIOSIS AND MILD DEGENERATIVE CHANGES. OLD COMPRESSION DEFORMITY AT L1. AP PELVIS COMPARISON: 12/27/[address] 12/20/2023 There is osteopenia. No acute fractures are identified. The hip joint spaces are maintained. There is no prominent hypertrophy. The SI joints are intact. Bone islands are again seen at the left sacrum, ilium and pubic symphysis. There is levoscoliotic curvature and degenerative change at the lower imaged lumbar spine. IMPRESSION: NO ACUTE BONY FINDINGS. Impression dictated by: Lou Young M.D.12/11/2024 10:40 AM Dictation Location: [place] [address] Electronically authenticated by: [id number] Y Date: 12/11/2024 10:40
== END 2024-12-11 09:36 | disposition home or self-care (01) ==
LOC: RAD 09:36
PROVIDERS: PCP Family Medicine; Visit Provider Family Medicine
DX: M54.50 Low back pain, unspecified (principal); M85.80 Other specified disorders of bone density and structure, unspecified site; M51.369 Other intervertebral disc degeneration, lumbar region without mention of lumbar back pain or lower extremity pain
CPT/HCPCS: 72110; 72170

== ENCOUNTER 2024-12-26 09:57 | Outpatient (OUT) | payer OTHER, SELFPAY ==
--- NOTE | 2024-12-26 10:00 | CA_ITS ---
Patient Name: EMIGDIO ELI MR#: [id number] : 1965 Exam Date: 12/26/2024 Ordering Doctor: MICHAEL GOODE ECHOCARDIOGRAM REPORT PROCEDURE: CA ECHO DOPPLER COMPLETE INDICATIONS: Tricuspid regurgitation, COPD, hypertension, pacemaker COMPARISON: None. DESCRIPTION: COMPLETE ECHOCARDIOGRAM Real-time transthoracic echocardiography with 2D, M-mode, spectral and color flow Doppler performed. QUALITY: Technical quality was good. LEFT VENTRICLE: Normal chamber size. Normal left ventricular wall thickness. Normal systolic function. LV EF: Normal left ventricular ejection fraction, (60-65%). DIASTOLIC: Normal diastolic function. ATRIAL SEPTUM: Visually appears intact. LEFT ATRIUM: Normal chamber size. RIGHT ATRIUM: Normal chamber size. RIGHT VENTRICLE: Normal chamber size. Normal systolic function. Pacer wire present. TRICUSPID VALVE: Normal mobility and thickness. No stenosis with mild to moderate regurgitation. Doppler studies reveal mildly (35-45) elevated right sided pressures. RVSP 37 mmHg MITRAL VALVE: Normal mobility and thickness. No evidence of mitral valve stenosis. There is no mitral annular calcification. Mild mitral regurgitation. AORTIC VALVE: Normal trileaflet appearance. No visible sclerosis. Normal leaflet mobility. No evidence of aortic valve stenosis. No aortic regurgitation. AORTIC ROOT: Normal diameter and appearance, measuring 2.8 cm. Ascending aorta is normal in size, measuring 2.1 cm. PULMONIC VALVE: Normal thickness and mobility. No stenosis. No regurgitation. PERICARDIUM: No evidence of pericardial effusion. IVC: Collapses with inspirations. PLEURA: CONCLUSION: 1. Normal left ventricular size and systolic function. Estimated LVEF is 60 to 65%. 2. Normal right ventricular size and systolic function. 3. Mild to moderate tricuspid regurgitation. 4. Mild mitral regurgitation. 5. Mildly elevated right-sided pressures. RVSP is 37 mmHg. 6. No pericardial effusion. Adult Echocardiography Procedure Report Left Ventricle LVEDD (3.7 - 5.6 cm): 3.64 cm LVESD (2.2 - 4.0 cm): 2.62 cm LVIVS thickness (0.6 - 1.2 cm): 0.67 cm LVPW thickness (0.5 - 1.0 cm): 0.55 cm e': 0.12 m/s E - e': 6.01 LVOT Max Gradient: 3.87 mm[Hg] LVOT Area (cm2): 0.98 m/s Peak Velocity (LVOT): 0.98 m/s Mean Velocity (LVOT): 0.63 m/s LVOT Diameter 1.68 cm Left Atrium LA Volume Index (2D A2C): 18.92 ml/m2 Left Atrium Systolic Dimension: 3.00 cm Mitral Valve MV E to A Ratio: 0.93 Mitral Valve A-Wave Peak Velocity: 0.80 m/s Mitral Valve E-Wave Peak Velocity: 0.74 m/s Right Ventricle Aorta AO Root Diam: 2.81 cm Ascending Ao Diam: 2.10 cm Aortic Valve AoV Area (Peak Ganga): 1.92 cm2, 1.92 cm2 AoV Area (VTI): 1.70 cm2, 1.70 cm2 Peak Velocity(Antegrade Flow): 1.13 m/s Peak Gradient(Antegrade Flow): 5.08 mm[Hg] Mean Velocity(Antegrade Flow): 0.73 m/s Mean Gradient(Antegrade Flow): 2.52 mm[Hg] Velocity Time Integral: 24.71 cm Tricuspid Valve Peak Velocity (Regurgitant Flow): 2.76 m/s, 2.91 m/s, 2.70 m/s Pulmonic Valve Mean Gradient: 1.15 mm[Hg] Mean Velocity: 0.49 m/s Peak Velocity: 0.79 m/s, 0.81 m/s Peak Gradient: 2.62 mm[Hg], 2.50 mm[Hg] Right Atrium Right Atrium Systolic Pressure: 16.06 ml, 16.06 ml Dictated by: Tony Hines M.D. on 12/27/2024 at 17:11 Approved by: Tony Hines M.D. on 12/27/2024 at 17:24
== END 2024-12-26 09:58 | disposition home or self-care (01) ==
LOC: CARD 09:58
PROVIDERS: PCP Family Medicine
DX: R06.09 Other forms of dyspnea (principal); Z95.0 Presence of cardiac pacemaker
CPT/HCPCS: 93306

== ENCOUNTER 2025-02-19 21:21 | Inpatient (IN) | payer OTHER, SELFPAY ==
--- OUTSIDE RECORDS SUMMARY | 2025-02-17 13:30 | XMS_ITS | Encounter Summary ---
Author Organization [facility] Address [address] [place] [address] Care Team Providers Care Pharmacist Helper Name Role Phone Paulo Turner MD Primary Care Provider [phone] Reason for Visit * Reason Comments Pre-op Exam Encounter Details Date Type Department Care Team (Late st Contact Info) Description 02/17/2025 1:30 PM EDT Office Visit [facility] [address] [place] [address] García Rosales, SUPERVISOR ENG[employer]PA[employer] [address] [place] [address] Preop examination (Primary Dx) Social History Tobacco Use Types Packs/Day Years Used Date Smoking Tobacco: Never Smokeless Tobacco: Never Alcohol Use Standard Drinks/Week Comments Not Currently 0 (1 standard drink = 0.6 oz pur e alcohol) Comments Unknown Sex and Gender Information Value Date Recorded Sex Assigned at Not on file Legal Sex Female 7:31 PM EDT Gender Identity Female 06/21/2024 12:23 PM EDT Sexual Orientation Straight 06/21/2024 12 :23 PM EDT documented as of this encounter Last Filed Vital Signs Vital Sign Reading Time Taken Comments Blood Pressure - - Pulse - - Temperature - - Respiratory Rate - - Oxygen Saturation - - Inhaled Oxygen Concentration - - Weight 47.2 kg (104 lb) 02/17/2025 1:40 PM EDT Height 152.4 cm (5') 02/17/2025 1:40 PM EDT Body Mass Index 20.31 02/17/2025 1:40 PM EDT documented in this encounter Progress Notes * García Rosales, KALPANA - 02/17/2025 1:30 PM EDT Chief Complaint Patient presents with Left Wrist - Pre-op Exam HISTORY OF PRESENT ILLNESS: Martha Apodaca is an 59 y.o. @ female. Patient here for pre op exam for LT CTR. Patient is noted to be coughing frequently in the room andstates she does have some SOB. States she gets pneumonia frequently and may be getting sick. Alert and oriented and not in distress ALLERGIES: Allergies Allergen Reactions Codeine Other Reaction(s): Nausea Erythromycin Base Other Reaction(s): Unknown Reaction Prochlorperazine Other Reaction(s): Other: See Comments, Unknown, Unknown Reaction Promethazine Other Reaction(s): Unknown Sulfa Antibiotics Other Reaction(s): Other: See Comments, Unknown, Unknown Reaction HOME MEDICATIONS: Current Outpatient Medications Medication Instructions albuterol HFA 90 mcg/act inhaler 1 puff alendronate (Fosamax) 70 MG tablet buPROPion XL (Wellbutrin XL) 300 MG 24 hr tablet Every 24 hours cholecalciferol (Vitamin D-3) 50 MCG (2000 UT) capsule 1 capsule, Daily RT ciprofloxacin (CIPRO) 500 mg, Every 12 hours citalopram (CELEXA) 20 mg, Daily RT Claritin 10 MG tablet Every 24 hours DSS 100 mg, Oral, Daily RT ergocalciferol (Vitamin D-2) 1.25 MG (46757 UT) capsule 1 capsule escitalopram (LEXAPRO) 10 mg, Daily RT ibuprofen 400 mg, Every 6 hours PRN LaMICtal 25 MG tablet Every 24 hours lamoTRIgine (LAMICTAL) 25 mg, Oral, Daily RT lansoprazole (PREVACID) 30 mg, Daily RT levothyroxine (Synthroid) 125 MCG tablet Every 24 hours meclizine (ANTIVERT) 25 mg, Oral, 3 times daily PRN simvastatin (Zocor) 20 MG tablet PHYSICAL EXAM: Physical Exam Constitutional: Appearance: She is ill-appearing. HENT: Nose: No congestion. Cardiovascular: Rate and Rhythm: Normal rate and regular rhythm. Pulmonary: Breath sounds: Rales present. Comments: SOB Skin: General: Skin is warm and dry. Vitals: Body mass index is 20.31 kg/m??. IMAGING: ASSESSMENT: Preop examination PLAN: I recommend patient follow up with PCP/ER or UC as I believe she may be developing pneumonia. We will cancel her surgery for now and have her follow up once she is cleared by PCP. Patient verbalized understanding. Questions answered in laymen terms at the bedside. The diagnosis, home exercise plan and any ongoing restrictions/ recommendations reviewed. If unable to be reached in office, I recommend evaluation at nearest Emergency Room if any symptoms worsened or new symptoms develop for requiring urgent evaluation. García Rosales APRN, SUPERVISOR ENG[employer] García Rosales NP documented in this encounter Plan of Treatment Not on file documented as of this encounter Visit Diagnoses Diagnosis Preop examination- Primary Unspecified pre-operative examination documented in this encounter Care Teams Pharmacist Helper Relationship Specialty Start Date End Date Paulo Turner MD PCP - General Family Medicine 06/24/24 documented as of this encounter
[2025-02-19] VITALS (7 sets, daily range): BP systolic 143; BP diastolic 93; PULSE 81–96; TEMP 36.6; O2SAT 87–96; BMI 20.1
--- OUTSIDE RECORDS SUMMARY | 2025-02-19 21:28 | XMS_ITS | CCD ---
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 Unremarkable xrays of the right elbow [facility] XR Knee - right 3 Viewson Imaging Result: Xrays AP, LAT and sunrise view of the right knee performed on August 07, 2024 is unremarkable for patella fracture, the patella fracture that was seen on CT scan is not visible on todays xrays. Impression Suspected healing non displaced patella fracture [facility] XR Knee - right 3 ViewsOrder ed By: Gamaliel Jorgensen on 08-13-2024 [facility] Work Phone: XR Elbow - right 2 Viewson 1 10-07-2023 Radiology Study observation (narrative) [facility] XR Knee - right 3 Viewson Radiology Study observation (narrative) [facility] XR Hand - left 3 View[facility] Imaging Result: Xrays AP, LAT and OBL of the left hand performed on July 22, 2024 demonstrates healing base of the 5th MC fracture. No other fracture noted. Impressions Healing 5th MC base fracture. [facility] XR Hand - left 3 ViewsOrdere d By: Gamaliel Jorgensen on 07-23-2024 [facility] Work Phone: XR Hand - left 3 Viewson Radiology Study observation (narrative) [facility] XR Knee - right 3 Viewson Imaging Result: June 24, 2024 x-rays AP weight-bearing bilateral knees lateral and sunrise of the right knee demonstrate neutral alignment bilateral knees. The joint spaces are intact. No fractures are detected. Impression: No acute findings on x-rays of the right knee Ronald Jorgensen D.O. [facility] XR Knee - right 3 ViewsOrder ed By: Gamaliel Jorgensen on 06-25-2024 [facility] Work Phone: XR Knee - right 3 Viewson Radiology Study observation (narrative) [facility] CNOVon 06-13-2024 CNOV Office Visit (SHABNAM ) EMIGDIO APODACA ([id number]) 1965 F J[birth year] Date Time Provider Department 06/13/24 12:30 PM ZOILA MONAE During your visit today, we recorded the following information about you: Pulse Blood pressure Weight Height 74/minute 107/77 46.3 kg 1.523 m Zoila Monae MD 06/13/2024 1:41 PM Signed [facility] Follow up/ Established patient visit Individuals who were included in, or assisted with the encounter were: Emigdio Monae MD Chief Complaint/Issues: Emigdio Apodaca is a 58 year old female seen in the [facility] for: Staring spells. Most [...] that she can have it done in [place] but she would rather come here. She [...] carbonate (CALT (more content not included)... [facility] (SHABNAM) EMIGDIO APODACA ([id number]) 1965 F JARROD Date Time Provider Department [...] Status:Closed by IVETH SALAZAR on 09/19/24 Normal [facility] CNOVon 03-06-2024 CNOV Office Visit (NUMBHT ) EMIGDIO [id number]) 1965 F JARROD Date Time Provider Department 03/06/24 2:00 PM ZOILA MONAE During your visit today, we recorded the following information about you: Temperature Pulse Blood pressure Weight 97.2 degrees 106/minute 101/68 45 kg Height 1.535 m Zoila Monae MD 03/06/2024 3:39 PM Signed [facility] New Patient Evaluation Consulting Provider: Tony Amaya [address] [facility] [address] The patient presents with a chief complaint [...] year old Rh female seen in the [facility] for: Cognitive evaluation and [...] for low IQ. She worked in a [employer] and only worked 6 months. She [...] Gait Arises (more content not included)... Normal [facility] BASIC METABOLIC PANELon 05-2 Anion gap [Moles/Vol] 12 mmol/L Normal 7-20 [facility] Comment on above: Performed By: #### L [id number] #### [facility] ([facility]AK[facility]) [address] [place] [address] Calcium [Mass/Vol] 9.3 mg/dL Normal 8.6-10.3 [facility] Comment on above: Performed By: #### L [id number] #### [facility] ([facility]) [address] [place] [address] Chloride [Moles/Vol] 103 mmol/L Normal 98-107 [facility] Comment on above: Performed By: #### L [id number] #### [facility] ([facility]) [address] [place] [address] CO2 [Moles/Vol] 28 mmol/L Normal 21-31 [facility] Comment on above: Performed By: #### L [id number] #### [facility] ([facility]) [address] [place] [address] Creatinine [Mass/Vol] 0.87 mg/dL Normal 0.60-1.20 [facility] Comment on above: Performed By: #### L [id number] #### [facility] (BE[facility]ER) [address] [place] [address] GLOMERULAR FILTRATION RATE ML/MIN/1.73 SQ M.PREDICTED 76.7 mL/min/1.73m*2 Normal >60.0 [facility] Comment on above: Result Comment: [facility]???s estimated glomerular filtration rate (eGFR) will [...] individuals. Performed By: #### L [id number] #### [facility] ([facility]) [address] [facility] [address] Glucose [Mass/Vol] 84 mg/dL Normal 70-100 [facility] Comment on above: Performed By: #### L [id number] #### [facility] ([facility]) [address] [place] [address] Potassium [Moles/Vol] 3.6 mmol/L Normal 3.5-5.1 [facility] Comment on above: Performed By: #### L [id number] #### [facility] ([facility]) [address] [place] [address] Sodium [Moles/Vol] 139 mmol/L Normal 136-145 [facility] Comment on above: Performed By: #### L [id number] #### [facility] ([facility]) [address] [place] [address] Urea nitrogen [Mass/Vol] 9 mg/dL Normal 7-25 [facility] Comment on above: Performed By: #### L [id number] #### [facility] ([facility]) [address] [place] [address] UREA NITROGEN/CREATININE (MASS RATIO) IN SER/PLAS 10.3 Normal [facility] Comment on above: Performed By: #### L [id number] #### [facility] ([facility]) [address] [place] [address] CBC WITH AUTO DIFFERENTIALon 02-20-2024 Basophils (Bld) [#/Vol] 0.03 10*3/uL Normal 0.00-0.20 [facility] Comment on above: Performed By: #### L [id number] #### [facility] ([facility]) [address] [place] [address] Basophils/100 WBC (Bld) 0.6 % Normal 0.0-1.0 [facility] Comment on above: Performed By: #### L [id number] #### [facility] [address] [place] [address] Eosinophils (Bld) [#/Vol] 0.20 10*3/uL Normal 0.00-0.50 [facility] Comment on above: Performed By: #### L [id number] #### [facility] ([facility]) [address] [place] [address] Eosinophils/100 WBC (Bld) 4.3 % Normal 0.0-6.0 [facility] Comment on above: Performed By: #### L [id number] #### [facility] ([facility]) [address] [place] [address] Erythrocyte distribution width (RBC) [Ratio] 12.9 % Normal 11.5-15.0 [facility] Comment on above: Performed By: #### L [id number] #### [facility] ([facility]) [address] [place] [address] ERYTHROCYTE MEAN CORPUSCULAR HEMOGLOBIN CONCENTRATION (G/DL) BY AUTOMATED 33.3 g/dL Normal 32.0-35.0 [facility] Comment on above: Performed By: #### L [id number] #### [facility] ([facility]) [address] [place] [address] Hematocrit (Bld) [Volume fraction] 42.1 % Normal 36.0-48.0 [facility] Comment on above: Performed By: #### L [id number] #### [facility] ([facility]) [address] [place] [address] Hemoglobin (Bld) [Mass/Vol] 14.0 g/dL Normal 12.0-15.0 [facility] Comment on above: Performed By: #### L [id number] #### [facility] ([facility]) [address] [place] [address] Immature granulocytes (Bld) [#/Vol] 0.01 10*3/uL Normal 0.00-0.20 [facility] Comment on above: Performed By: #### L [id number] #### [facility] [address] [place] [address] Immature granulocytes/100 WBC (Bld) 0.2 % Normal 0.0-1.0 [facility] Comment on above: Performed By: #### L [id number] #### [facility] ([facility]) [address] [place] [address] Lymphocytes (Bld) [#/Vol] 1.36 10*3/uL Normal 1.20-4.00 [facility] Comment on above: Performed By: #### L [id number] #### [facility] ([facility]) [address] [place] [address] Lymphocytes/100 WBC (Bld) 29.0 % Normal 20.0-45.0 [facility] Comment on above: Performed By: #### L [id number] #### [facility] ([facility]) [address] [place] [address] MCH (RBC) [Entitic mass] 28.7 pg Normal 27.0-33.0 [facility] Comment on above: Performed By: #### L [id number] #### [facility] ([facility]) [address] [place] [address] MCV (RBC) [Entitic vol] 86.3 fL Normal 82.0-98.0 [facility] Comment on above: Performed By: #### L [id number] #### [facility] [address] [place] [address] Monocytes (Bld) [#/Vol] 0.29 10*3/uL Normal 0.10-1.00 [facility] Comment on above: Performed By: #### L [id number] #### [facility] ([facility]) [address] [place] [address] Monocytes/100 WBC (Bld) 6.2 % Normal 5.0-12.0 [facility] Comment on above: Performed By: #### L [id number] #### [facility] ([facility]) [address] [place] [address] Neutrophils (Bld) [#/Vol] 2.80 10*3/uL Normal 1.60-7.60 [facility] Comment on above: Performed By: #### L [id number] #### [facility] ([facility]) [address] [place] [address] Neutrophils/100 WBC (Bld) 59.7 % Normal 40.0-72.0 [facility] Comment on above: Performed By: #### L [id number] #### [facility] ([facility]) [address] [place] [address] NRBC (PER 100 WBCS) BY AUTOMATED COUNT 0.0 % Normal 0 [facility] Comment on above: Performed By: #### L [id number] #### [facility] ([facility]) [address] [place] [address] PLATELETS (10*3/UL) IN BLOOD AUTOMATED COUNT 225 10*3/uL Normal 150-400 [facility] Comment on above: Performed By: #### L [id number] #### [facility] ([facility]) [address] [place] [address] RBC (Bld) [#/Vol] 4.88 10*6/uL Normal 3.80-5.00 [facility] Comment on above: Performed By: #### L [id number] #### [facility] ([facility]) [address] [place] [address] WBC (Bld) [#/Vol] 4.69 10*3/uL Normal 4.00-10.60 [facility] Comment on above: Performed By: #### L [id number] #### [facility] ([facility]) [address] [place] [address] D-DIMER, QUANTITATIVEon 05- FIBRIN D-DIMER (UG/L FEU) IN PLATELET POOR PLASMA <0.27 Low 0.27-0.49 [facility] Comment on above: Order Comment: D-Dim er values of less than 0.50 ug/ml (FEU) are considered to be a negative predictor of thrombosis. However, the D-Dimer result should be used in conjunction with pretest probability and should not be used alone to diagnose a thrombotic event. Performed By: #### L [id number] #### [facility] ([facility]) [address] [place] [address] EDPROVon 02-20-2024 EDPROV HPI Chief Complaint Patient [...] Source Heart Rate Source Patient Position 02/20/24184302/20/24184302/20/24 1903 -- 91 % Oral Monitor BP [...] NP 02/20/241955 Regan Aldana NP 02/20/242002 Normal [facility] LIPASEon 02-20-2024 LIPASE (U/L) IN SER/PLAS 54 U/L Normal 11-82 [facility] Comment on above: Performed By: #### L [id number] #### [facility] ([facility]) [address] [place] [address] MAGNESIUMon 02-20-2024 Magnesium [Mass/Vol] 2.1 mg/dL Normal 1.9-2.7 [facility] Comment on above: Performed By: #### L [id number] #### [facility] ([facility]ER) [address] [place] [address] TROPONIN Ion 02-20-2024 Troponin I.cardiac [Mass/Vol] 0.00 ng/mL Normal 0.00-0.04 [facility] Comment on above: Performed By: #### L [id number] #### [facility] ([facility]ER) [address] [place] [address] CBC AUTO DIFFon 01-07-2023 BASO # 0.0 103/ul Normal 0.0-0.[address] [facility] Comment on above: Performed By: #### C BC ####[facility] [address] [place], [place] [address]Dr. Shahbaz Rogel Basophils/100 WBC (Bld) 0.3 % Normal 0.2-2.[address] [facility] Comment on above: Performed By: #### C BC ####[facility] Yql[address] [place], [place] [address]Dr. Shahbaz Rogel EO # 0.0 103/ul Normal 0.0-0.[address] [facility] Comment on above: Performed By: #### C BC ####[facility] [address] [place], [place] [address]Dr. Shahbaz Rogel Eosinophils/100 WBC (Bld) 0.0 % Critically low 0.9-7.[address] [facility] Comment on above: Performed By: #### C BC ####[facility] D[address] [place], [place] [address]Dr. Shahbaz Rogel Erythrocyte distribution width (RBC) [Ratio] 13.5 % Normal 11.0-15.[address] [facility] Comment on above: Performed By: #### C BC ####[facility] Eoidyimbrk[address] [place], [place] [address]Dr. Shahbaz Rogel Hematocrit (Bld) [Volume fraction] 36.4 % Normal 36.0-48.[address] [facility] Comment on above: Performed By: #### C BC ####[facility] I[address]eme[address] [place], [place] [address]DrChen Rogel Hemoglobin (Bld) [Mass/Vol] 11.6 g/dL Critically low 12.0-16.0 [facility] Comment on above: Performed By: #### C BC ####[facility] [address] [place] [address]DrChen Rogel IG # 0.06 10e3/ul Critically high 0.00-0.03 [facility] Comment on above: Performed By: #### C BC ####[facility] [address] [place] [address]DrChen Rogel IG % 1.5 % Critically high 0.0-0.5 [facility] Comment on above: Performed By: #### C BC ####[facility] [address] [place], [place] [address]DrChen Rogel LYMPH # 0.7 103/ul Critically low 1.2-3.8 [facility] Comment on above: Performed By: #### C BC ####[facility] [address] [place], [place] [address]DrChen Rogel Lymphocytes/100 WBC (Bld) 16.6 % Critically low 20.5-60.0 [facility] Comment on above: Performed By: #### C BC ####[facility] [address] [place] [address]DrChen Lilajarrod Rogel MANUAL DIFF REQ NO Normal [facility] Comment on above: Performed By: #### C BC ####[facility] [address] [place], [place] [address]DrChen Sharpjarrod Juan F MCH (RBC) [Entitic mass] 27.6 pg Normal 26.7-34.0 [facility] Comment on above: Performed By: #### C BC ####[facility] [address]ve[address] [place], [place] [address]DrChen Rogel MCHC (RBC) [Mass/Vol] 31.9 g/dL Normal 29.9-35.2 [facility] Comment on above: Performed By: #### C BC ####[facility] [address]xrs[address] [place], [place] [address]DrChen Rogel MCV (RBC) [Entitic vol] 86.5 fL Normal 81.0-99.0 [facility] Comment on above: Performed By: #### C BC ####[facility] [address] [place] [address]DrChen Sharpjarrod Rogel MONO # 0.2 103/ul Critically low 0.3-0.8 [facility] Comment on above: Performed By: #### C BC ####[facility] [address] [place], [place] [address]DrChen Rogel Monocytes/100 WBC (Bld) 5.0 % Normal 1.7-12.0 [facility] Comment on above: Performed By: #### C BC ####[facility] X[address]fxxomf[address] [place], [place] [address]DrChen Sharpjarrod Juan F NEUT # 3.1 103/ul Normal 1.4-6.5 [facility] Comment on above: Performed By: #### C BC ####[facility] D[address]po[address] [place], [place] [address]DrChen Rogel Neutrophils/100 WBC (Bld) 76.6 % Critically high 43.0-75.0 [facility] Comment on above: Performed By: #### C BC ####[facility] Ligwmszuxq[address] [place], [place] [address]DrChen Rogel Platelet mean volume (Bld) [Entitic vol] 9.9 fL Normal 9.5-13.5 [facility] Comment on above: Performed By: #### C BC ####[facility] Ewh[address]vyms[address] [place], [place] [address]Dr. Shahbaz Rogel PLT 194 103/ul Normal 150-450 [facility] Comment on above: Performed By: #### C BC ####[facility] Regaf[address] [place], [place] [address]DrChen Rogel RBC 4.21 106/ul Normal 4.20-5.40 [facility] Comment on above: Performed By: #### C BC ####[facility] Oq[address]oyel[address] [place], [place] [address]DrChen Rogel WBC 4.0 103/ul Normal 4.0-11.0 [facility] Comment on above: Performed By: #### C BC ####[facility] Liqf[address]onehi[address] [place], [place] [address]Dr. Lilajarrod Rogel PROF CHEM 8 (BAS METB)on Anion gap [Moles/Vol] 9.5 mmol/L Normal [facility] Comment on above: Performed By: #### B MP ####[facility] [address]stbp[address] [place], [place] [address]Dr. Shahbaz Rogel Calcium [Mass/Vol] 8.8 mg/dL Normal 8.5-10.1 [facility] Comment on above: Performed By: #### B MP ####[facility] [address]ai[address] [place], [place] [address]Dr. Shahbaz Rogel Chloride [Moles/Vol] 106 mmol/L Normal 98-107 [facility] Comment on above: Performed By: #### B MP ####[facility] W[address]nwma[address] [place], [place] [address]Dr. Shahbaz Rogel CO2 [Moles/Vol] 29.6 mmol/L Normal 21.0-32.0 [facility] Comment on above: Performed By: #### B MP ####[facility] Q[address]zxuatsq[address] [place], [place] [address]Dr. Shahbaz Rogel Creatinine [Mass/Vol] 0.80 mg/dL Normal 0.55-1.02 [facility] Comment on above: Performed By: #### B MP ####[facility] [address]rgxf[address]za[address] [place], [place] [address]Dr. Shahbaz Rogel EGFR-AF GERMAN >60 Normal >=60 [facility] Comment on above: Performed By: #### B MP ####[facility] [address]yce[address]zysg[address] [place], [place] [address]Dr. Shahbaz Rogel EGFR-NON AF GERMAN >60 Normal >=60 [facility] Comment on above: Performed By: #### B MP ####[facility] Ihnaaueadi[address] [place], [place] [address]Dr. Shahbaz Rogel Glucose [Mass/Vol] 137 mg/dL Critically high 74-106 T [facility] Comment on above: Performed By: #### B MP ####[facility] Pitzyjjrde[address] [place], [place] [address]Dr. Shahbaz Rogel Potassium [Moles/Vol] 4.1 mmol/L Normal 3.5-5.[address] [facility] Comment on above: Performed By: #### B MP ####[facility] [address]kbpfuesa[address] [place], [place] [address]Dr. Shahbaz Rogel Sodium [Moles/Vol] 141 mmol/L Normal 136-145 [facility] Comment on above: Performed By: #### B MP ####[facility] Ghowkcbghp[address] [place], [place] [address]Dr. Shahbaz Rogel Urea nitrogen [Mass/Vol] 18.0 mg/dL Normal 7.0-18.[address] [facility] Comment on above: Performed By: #### B MP ####[facility] X[address]zym[address]dh[address] [place], [place] [address]Dr. Shahbaz Rogel Urea nitrogen/Creatinine [Mass ratio] 22.5 mg/mg Normal [facility] Comment on above: Performed By: #### B MP ####[facility] Nfvknpkucu[address] [place], [place] [address]Dr. Shahbaz Rogel CBC AUTO DIFFon 01-06-2023 BASO # 0.0 103/ul Normal 0.0-0.[address] [facility] Comment on above: Performed By: #### C BC ####[facility] R[address]kskuonlc[address] [place], [place] [address]Dr. Shahbaz Rogel Basophils/100 WBC (Bld) 0.0 % Critically low 0.2-2.0 [facility] Comment on above: Performed By: #### C BC ####[facility] Z[address]pejq[address] [place], [place] [address]Dr. Shahbaz Rogel EO # 0.0 103/ul Normal 0.0-0.7 [facility] Comment on above: Performed By: #### C BC ####[facility] Xyyddfaxzw[address] [place], [place] [address]Dr. Shahbaz Rogel Eosinophils/100 WBC (Bld) 0.0 % Critically low 0.9-7.0 [facility] Comment on above: Performed By: #### C BC ####[facility] Nxjjrljrfa[address] [place], [place] [address]Dr. Shahbaz Rogel Erythrocyte distribution width (RBC) [Ratio] 13.8 % Normal 11.0-15.0 [facility] Comment on above: Performed By: #### C BC ####[facility] Detdeuhujz[address] [place], [place] [address]Dr. Shahbaz Rogel Hematocrit (Bld) [Volume fraction] 36.9 % Normal 36.0-48.0 [facility] Comment on above: Performed By: #### C BC ####[facility] Wxsauhibxf[address] [place], [place] [address]Dr. Shahbaz Rogel Hemoglobin (Bld) [Mass/Vol] 11.8 g/dL Critically low 12.0-16.[address] [facility] Comment on above: Performed By: #### C BC ####[facility] Ruedsjygxc[address] [place], [place] [address]Dr. Shahbaz Rogel IG # 0.04 10e3/ul Critically high 0.00-0.[address] [facility] Comment on above: Performed By: #### C BC ####[facility] Qpjy[address]vkgkh[address] [place], [place] [address]Dr. Shahbaz Rogel IG % 1.1 % Critically high 0.0-0.5 [facility] Comment on above: Performed By: #### C BC ####[facility] Jrgwelevia[address] [place], [place] [address]Dr. Shahbaz Rogel LYMPH # 0.5 103/ul Critically low 1.2-3.8 [facility] Comment on above: Performed By: #### C BC ####[facility] [address]ofjayvzp[address] [place], [place] [address]Dr. Shahbaz Rogel Lymphocytes/100 WBC (Bld) 13.9 % Critically low 20.5-60.0 [facility] Comment on above: Performed By: #### C BC ####[facility] D[address] [place], [place] [address]Dr. Lilajarrod Rogel MANUAL DIFF REQ NO Normal [facility] Comment on above: Performed By: #### C BC ####[facility] [address] [place] [address]Dr. Shahbaz Rogel MCH (RBC) [Entitic mass] 27.8 pg Normal 26.7-34.0 [facility] Comment on above: Performed By: #### C BC ####[facility] Yxceyxsjfm[address] [place], [place] [address]Dr. Shahbaz Juan F MCHC (RBC) [Mass/Vol] 32.0 g/dL Normal 29.9-35.2 [facility] Comment on above: Performed By: #### C BC ####[facility] Y[address]lsnd[address]zrm[address] [place], [place] [address]Dr. Lilajarrod Rogel MCV (RBC) [Entitic vol] 86.8 fL Normal 81.0-99.0 [facility] Comment on above: Performed By: #### C BC ####[facility] R[address]kepa[address] [place], [place] [address]Dr. Lilajarrod Rogel MONO # 0.1 103/ul Critically low 0.3-0.8 [facility] Comment on above: Performed By: #### C BC ####[facility] V[address]nyv[address]ttz[address] [place], [place] [address]Dr. Shahbaz Rogel Monocytes/100 WBC (Bld) 3.7 % Normal 1.7-12.0 [facility] Comment on above: Performed By: #### C BC ####[facility] [address]yev[address]uh[address] [place], [place] [address]Dr. Shahbaz Rogel NEUT # 3.1 103/ul Normal 1.4-6.5 [facility] Comment on above: Performed By: #### C BC ####[facility] F[address] [place], [place] [address]Dr. Shahbaz Rogel Neutrophils/100 WBC (Bld) 81.3 % Critically high 43.0-75.0 [facility] Comment on above: Performed By: #### C BC ####[facility] Qnuayfrdle20[address] [place], [place] [address]Dr. Shahbaz Rogel Platelet mean volume (Bld) [Entitic vol] 9.8 fL Normal 9.5-13.5 [facility] Comment on above: Performed By: #### C BC ####[facility] [address]nhbuwa[address] [place] [address]Dr. Sahhbaz Rogel PLT 184 103/ul Normal 150-450 [facility] Comment on above: Performed By: #### C BC ####[facility] Enmckjbhxo49[address] [place] [address]Dr. Shahbaz Rogel RBC 4.25 106/ul Normal 4.20-5.40 [facility] Comment on above: Performed By: #### C BC ####[facility] Owypjwuqto575[address] [place], [place] [address]Dr. Shahbaz Rogel WBC 3.8 103/ul Critically low 4.0-11.0 [facility] Comment on above: Performed By: #### C BC ####[facility] Bfshtryngj9[address] [place], [place] [address]Dr. Shahbaz Rogel PROF CHEM 8 (BAS METB)on Anion gap [Moles/Vol] 9.2 mmol/L Normal [facility] Comment on above: Performed By: #### B MP ####[facility] Wgbtsoggxg2332[address] [place], [place] [address]Dr. Shahbaz Rogel Calcium [Mass/Vol] 8.6 mg/dL Normal 8.5-10.1 [facility] Comment on above: Performed By: #### B MP ####[facility] Pesuvixbcb9787[address] [place], [place] [address]Dr. Shahbaz Rogel Chloride [Moles/Vol] 107 mmol/L Normal 98-107 [facility] Comment on above: Performed By: #### B MP ####[facility] Bjcdlqsjie740568 [address] [place], [place] [address]Dr. Shahbaz Rogel CO2 [Moles/Vol] 29.3 mmol/L Normal 21.0-32.0 [facility] Comment on above: Performed By: #### B MP ####[facility] Xeddwlglhj90[address] [place], [place] [address]Dr. Shahbaz Rogel Creatinine [Mass/Vol] 0.79 mg/dL Normal 0.55-1.[address] [facility] Comment on above: Performed By: #### B MP ####[facility] Hnyppnzplq[address] [place] [address]Dr. Lilajarrod Juan F EGFR-AF GERMAN >60 Normal >=[address] [facility] Comment on above: Performed By: #### B MP ####[facility] Zvelkbtxqo0110 [place] [address]Dr. Shahbaz Rogel EGFR-NON AF GERMAN >60 Normal >=[address] [facility] Comment on above: Performed By: #### B MP ####[facility] Sukunlhlro448[address] [place], [place] [address]Dr. Shahbaz Rogel Glucose [Mass/Vol] 159 mg/dL Critically high 74-106 [facility] Comment on above: Performed By: #### B MP ####[facility] Jpkkgqmrgd654[address] [place], [place] [address]Dr. Shahbaz Rogel Potassium [Moles/Vol] 3.5 mmol/L Normal 3.5-5.[address] [facility] Comment on above: Performed By: #### B MP ####[facility] Uhwhfgenlz2833[address] [place], [place] [address]Dr. Shahbaz Rogel Sodium [Moles/Vol] 142 mmol/L Normal 136-[address] [facility] Comment on above: Performed By: #### B MP ####[facility] Gyavefnugr1399[address] [place], [place] [address]Dr. Shahbaz Rogel Urea nitrogen [Mass/Vol] 21.0 mg/dL Critically high 7.0-18.[address] [facility] Comment on above: Performed By: #### B MP ####[facility] Nukbnnuxpa7357[address] [place], [place] [address]Dr. Shahbaz Rogel Urea nitrogen/Creatinine [Mass ratio] 26.6 mg/mg Normal [facility] Comment on above: Performed By: #### B MP ####[facility] Xqkjfniggs938[address] [place], [place] [address]Dr. Shahbaz Rogel XR CHEST 2 Von 01-06-2023 XR CHEST 2 V Normal [facility] CBC AUTO DIFFon 01-05-2023 BASO # 0.0 103/ul Normal 0.0-0.1 [facility] Comment on above: Performed By: #### C BC ####[facility] Zomhsiuqqv[address] [place] [address]Dr. Shahbaz Rogel Basophils/100 WBC (Bld) 0.2 % Normal 0.2-2.0 [facility] Comment on above: Performed By: #### C BC ####[facility] Tujcdzfqkg7324[address] [place], [place] [address]Dr. Shahbaz Rogel EO # 0.0 103/ul Normal 0.0-0.7 [facility] Comment on above: Performed By: #### C BC ####[facility] Zpbahxvjqp4006[address] [place], [place] [address]Dr. Shahbaz Rogel Eosinophils/100 WBC (Bld) 0.0 % Critically low 0.9-7.0 [facility] Comment on above: Performed By: #### C BC ####[facility] Xtzwwrojkf8869[address] [place], [place] [address]Dr. Shahbaz Rogel Erythrocyte distribution width (RBC) [Ratio] 13.6 % Normal 11.0-15.0 [facility] Comment on above: Performed By: #### C BC ####[facility] Lrnjaqhgdu6416[address] [place], [place] [address]Dr. Shahbaz Rogel Hematocrit (Bld) [Volume fraction] 36.6 % Normal 36.0-48.0 [facility] Comment on above: Performed By: #### C BC ####[facility] Qrnoipcpnl5726[address] [place], [place] [address]Dr. Shahbaz Rogel Hemoglobin (Bld) [Mass/Vol] 11.6 g/dL Critically low 12.0-16.0 [facility] Comment on above: Performed By: #### C BC ####[facility] Mllugsbhxg4612[address] [place], [place] [address]Dr. Shahbaz Rogel IG # 0.03 10e3/ul Normal 0.00-0.03 [facility] Comment on above: Performed By: #### C BC ####[facility] Jzvnqdfrrx8935 [place] [id number]. Shahbaz Rogel IG % 0.5 % Normal 0.0-0.[address] [facility] Comment on above: Performed By: #### C BC ####[facility] Hzgayuavti7926 [place] [phone]. Shahbaz Rogel LYMPH # 0.6 103/ul Critically low 1.2-3.8 [facility] Comment on above: Performed By: #### C BC ####[facility] Cfblgzlags5111 [place] [phone]. Shahbaz Rogel Lymphocytes/100 WBC (Bld) 10.7 % Critically low 20.5-60.[address] [facility] Comment on above: Performed By: #### C BC ####[facility] Pfwyiopfar5[address] [place] [address]Dr. Shahbaz Rogel MANUAL DIFF REQ NO Normal [facility] Comment on above: Performed By: #### C BC ####[facility] Ysfdcogceb6632 [place] [phone]. Shahbaz Rogel MCH (RBC) [Entitic mass] 27.7 pg Normal 26.7-34.[address] [facility] Comment on above: Performed By: #### C BC ####[facility] Ffbzkzjlkh3496 [place] [id number]. Shahbaz Rogel MCHC (RBC) [Mass/Vol] 31.7 g/dL Normal 29.9-35.2 [facility] Comment on above: Performed By: #### C BC ####[facility] Lsksidusih0706 [place] [phone]. Shahbaz Rogel MCV (RBC) [Entitic vol] 87.4 fL Normal 81.0-99.0 [facility] Comment on above: Performed By: #### C BC ####[facility] Yfcocziswz0258 [place] [phone]. Shahbaz Rogel MONO # 0.1 103/ul Critically low 0.3-0.8 [facility] Comment on above: Performed By: #### C BC ####[facility] Trfnrapqsr6190 [place] [id number]. Shahbaz Rogel Monocytes/100 WBC (Bld) 2.5 % Normal 1.7-12.[address] [facility] Comment on above: Performed By: #### C BC ####[facility] Biohhfkobx2206 [place] [phone]. Shahbaz Rogel NEUT # 4.8 103/ul Normal 1.4-6.5 [facility] Comment on above: Performed By: #### C BC ####[facility] Ubklmuizqj1332 [place] [address]Dr. Shahbaz Rogel Neutrophils/100 WBC (Bld) 86.1 % Critically high 43.0-75.[address] [facility] Comment on above: Performed By: #### C BC ####[facility] Lpdqsjngcr2340 [place] [address]Dr. Shahbaz Rogel Platelet mean volume (Bld) [Entitic vol] 10.0 fL Normal 9.5-13.[address] [facility] Comment on above: Performed By: #### C BC ####[facility] Ulzpbokjlj9076 [place] [address]Dr. Shahbaz Rogel PLT 193 103/ul Normal 150-[address] [facility] Comment on above: Performed By: #### C BC ####[facility] Tuupajesyp6936 [place] [phone]. Shahbaz Rogel RBC 4.19 106/ul Critically low 4.20-5.40 [facility] Comment on above: Performed By: #### C BC ####[facility] Kvjrlejbnv[address] [place], [place] [address]Dr. Shahbaz Rogel WBC 5.6 103/ul Normal 4.0-11.0 [facility] Comment on above: Performed By: #### C BC ####[facility] Gjgjgkhqro260[address] [place], [place] [address]Dr. Shahbaz Rogel PROF CHEM 8 (BAS METB)on Anion gap [Moles/Vol] 12.7 mmol/L Normal [facility] Comment on above: Performed By: #### B MP ####[facility] Vnuujhhkvh37[address] [place] [address]Dr. Shahbaz Rogel Calcium [Mass/Vol] 8.8 mg/dL Normal 8.5-10.1 [facility] Comment on above: Performed By: #### B MP ####[facility] Ounejkyfrh5022 [place] [address]Dr. Shahbaz Rogel Chloride [Moles/Vol] 107 mmol/L Normal 98-107 [facility] Comment on above: Performed By: #### B MP ####[facility] Iwjvxwqwmo0487[address] [place], [place] [address]Dr. Shahbaz Rogel CO2 [Moles/Vol] 26.9 mmol/L Normal 21.0-32.[address] [facility] Comment on above: Performed By: #### B MP ####[facility] Qzvbuyhtbx500[address] [place], [place] [address]Dr. Shahbaz Rogel Creatinine [Mass/Vol] 0.81 mg/dL Normal 0.55-1.[address] [facility] Comment on above: Performed By: #### B MP ####[facility] Mscerjmcpt77[address] [place], [place] [address]Dr. Shahbaz Rogel EGFR-AF GERMAN >60 Normal >=[address] [facility] Comment on above: Performed By: #### B MP ####[facility] Aqscumxvqa293[address] [place], [place] [address]Dr. Shahbaz Rogel EGFR-NON AF GERMAN >60 Normal >=60 [facility] Comment on above: Performed By: #### B MP ####[facility] Ypkcxeasyz0869[address] [place], [place] [address]Dr. Shahbaz Rogel Glucose [Mass/Vol] 144 mg/dL Critically high 74-106 [facility] Comment on above: Performed By: #### B MP ####[facility] Pjksfqqaqb4224[address] [place], [place] [address]Dr. Shahbaz Rogel Potassium [Moles/Vol] 3.6 mmol/L Normal 3.5-5.1 [facility] Comment on above: Performed By: #### B MP ####[facility] Fmphgbpvgz3706 [place] [address]Dr. Shahbaz Rogel Sodium [Moles/Vol] 143 mmol/L Normal 136-145 [facility] Comment on above: Performed By: #### B MP ####[facility] Prcysfmgwm7723 [place] [address]Dr. Shahbaz Rogel Urea nitrogen [Mass/Vol] 20.0 mg/dL Critically high 7.0-18.0 [facility] Comment on above: Performed By: #### B MP ####[facility] Rhrwpvjevd8397[address] [place], [place] [address]Dr. Shahbaz Juan F Urea nitrogen/Creatinine [Mass ratio] 24.7 mg/mg Normal [facility] Comment on above: Performed By: #### B MP ####[facility] Mghudqzrfb407[address] [place], [place] [address]Dr. Shahbaz Juan F CBC W MANUAL DIFFon 01-05-20 23 ATYPICAL LYMPH # Normal [facility] Comment on above: Performed By: #### C BCMAN ####[facility] Pwkeyigxud0258[address] [place], [place] [address]Dr. Shahbaz Juan F ATYPICAL LYMPH % Normal [facility] Comment on above: Performed By: #### C BCMAN ####[facility] Ayhpwnlmzd757[address] [place], [place] [address]Dr. Shahbaz Juan F BAND # 0.0 103/ul Normal 0.0-0.3 [facility] Comment on above: Performed By: #### C BCMAN ####[facility] Twixoqzilv939[address] [place], [place] [address]Dr. Shahbaz Rogel BAND % 0 % Normal 0-5 [facility] Comment on above: Performed By: #### C BCMAN ####[facility] Lbhhswrmrk44[address] [place], [place] [address]Dr. Shahbaz Rogel BASOM # 0.00 103/ul Normal 0.00-0.10 [facility] Comment on above: Performed By: #### C BCMAN ####[facility] Qrjqiyhgga8155[address] [place], [place] [address]Dr. Shahbaz Rogel BASOM % 0.0 % Critically low 0.2-2.0 [facility] Comment on above: Performed By: #### C CAIN ####[facility] Flmbzffjxq0923 [place] [address]Dr. Shahbaz Rogel BLAST # Normal [facility] Comment on above: Performed By: #### C CAIN ####[facility] Quvrdjmkdo5745 [place] [phone]. Shahbaz Rogel BLAST % Normal [facility] Comment on above: Performed By: #### C CAIN ####[facility] Ficltgepcy2566[address] [place], [place] [address]Dr. Shahbaz Rogel CORRECTED WBC Normal 4.0-11.0 [facility] Comment on above: Performed By: #### C CAIN ####[facility] Kgklmgoijz15[address] [place], [place] [address]Dr. Shahbaz Rogel EOS # 0.00 103/ul Normal 0.00-0.[address] [facility] Comment on above: Performed By: #### C CAIN ####[facility] Hoemptevsf544[address] [place], [place] [address]Dr. Shahbaz Rogel EOS% 0.0 % Critically low 0.9-7.[address] [facility] Comment on above: Performed By: #### C CAIN ####[facility] Pzfqlqhpzp12[address] [place], [place] [address]Dr. Shahbaz Rogel HCT 36.5 % Normal 36.0-48.0 [facility] Comment on above: Performed By: #### C CAIN ####[facility] Zxdjnlrtia856[address] [place], [place] [address]Dr. Shahbaz Rogel HGB 11.8 g/dl Critically low 12.0-16.0 [facility] Comment on above: Performed By: #### C CAIN ####[facility] Nrettrzcsz[address] [place], [place] [address]Dr. Shahbaz Rogel LYMPHM # 0.42 103/ul Critically low 1.20-3.80 [facility] Comment on above: Performed By: #### C CAIN ####[facility] Xagwsuxrhw7866[address] [place], [place] [address]Dr. Shahbaz Rogel LYMPHM% 12.0 % Critically low 20.5-60.0 [facility] Comment on above: Performed By: #### C CAIN ####[facility] Tzumnklglc7228 [place] [id number]. Shahbaz Rogel MCH 28.0 pg Normal 26.7-34.0 [facility] Comment on above: Performed By: #### C CAIN ####[facility] Kezqygqwjo7267 [place] [phone]. Shahbaz Rogel MCHC 32.3 g/dl Normal 29.9-35.2 [facility] Comment on above: Performed By: #### C CAIN ####[facility] Yfuotbfarj3589 [place] [phone]. Shahbaz Rogel MCV 86.7 fL Normal 81.0-99.0 [facility] Comment on above: Performed By: #### C CAIN ####[facility] Mmltlrtlqt6807 [place] [id number]. Shahbaz Rogel METAMYELOCYTE # Normal [facility] Comment on above: Performed By: #### C CAIN ####[facility] Dccvbxwgjg4244 [place] [phone]. Shahbaz Rogel METAMYELOCYTE % Normal [facility] Comment on above: Performed By: #### C CAIN ####[facility] Ducrbjlgnc9499 [place] [phone]. Shahbaz Rogel MONOM# 0.07 103/ul Critically low 0.30-0.80 [facility] Comment on above: Performed By: #### C CAIN ####[facility] Luqngdvdbn3660 [place] [phone]. Shahbaz Rogel MONOM% 2.0 % Normal 1.7-12.0 [facility] Comment on above: Performed By: #### C CAIN ####[facility] Yfehieimvv5786 [place] [id number]. Shahbaz Rogel MPV 9.9 fL Normal 9.5-13.5 [facility] Comment on above: Performed By: #### C CAIN ####[facility] Dmrsbpdlpf8320 [place], [place] [address]Gm. Shahbaz Rogel MYELOCYTE # Normal [facility] Comment on above: Performed By: #### C CAIN ####[facility] Mkundnpvzs8200 [place] [phone]. Shahbaz Rogel MYELOCYTE % Normal [facility] Comment on above: Performed By: #### C CAIN ####[facility] Cmtmyrvceu1049 [place] [id number]. Shahbaz Rogel NRBC Normal [facility] Comment on above: Performed By: #### C CAIN ####[facility] Jbtavfkowj1382 [place] [phone]. Shahbaz Rogel PLT 178 103/ul Normal 150-450 [facility] Comment on above: Performed By: #### C CAIN ####[facility] Paluycwxjf9387 [place] [phone]. Shahbaz Rogel RBC 4.21 106/ul Normal 4.20-5.40 [facility] Comment on above: Performed By: #### C CAIN ####[facility] Spiijvvhna2093 [place] [phone]. Shahbaz Rogel RDW 13.2 % Normal 11.0-15.[address] [facility] Comment on above: Performed By: #### C CAIN ####[facility] Evruwtbruo2307 [place] [phone]. Shahbaz Rogel SEG # 3.01 103/ul Normal 1.40-6.50 [facility] Comment on above: Performed By: #### C CAIN ####[facility] Vmjrkpuvfy2519 [place] [phone]. Shahbaz Rogel SEG % 86.0 % Critically high 43.0-75.0 [facility] Comment on above: Performed By: #### C CAIN ####[facility] Lrkvgzjyun7069 [place] [phone]. Shahbaz Rogel WBC 3.5 103/ul Critically low 4.0-11.0 [facility] Comment on above: Performed By: #### C BCMAN ####[facility] Rlvpcdjjii2586 [place] [address]Dr. Shahbaz Rogel PROF CHEM 8 (BAS METB)on Anion gap [Moles/Vol] 10.5 mmol/L Normal [facility] Comment on above: Performed By: #### B MP ####[facility] Oogbwasejx0561 [place] [address]Dr. Shahbaz Rogel Calcium [Mass/Vol] 8.7 mg/dL Normal 8.5-10.[address] [facility] Comment on above: Performed By: #### B MP ####[facility] Hikxfclngz2378 [place] [address]Dr. Shahbaz Rogel Chloride [Moles/Vol] 108 mmol/L Critically high 98-[address] [facility] Comment on above: Performed By: #### B MP ####[facility] Xjlqfxpcks8385[address] [place], [place] [address]Dr. Shahbaz Rogel CO2 [Moles/Vol] 25.2 mmol/L Normal 21.0-32.[address] [facility] Comment on above: Performed By: #### B MP ####[facility] Abxptnvrqt6120[address] [place], [place] [address]Dr. Shahbaz Rogel Creatinine [Mass/Vol] 0.77 mg/dL Normal 0.55-1.[address] [facility] Comment on above: Performed By: #### B MP ####[facility] Zhklkbqfnr6601[address] [place], [place] [address]Dr. Shahbaz Rogel EGFR-AF GERMAN >60 Normal >=[address] [facility] Comment on above: Performed By: #### B MP ####[facility] Uldwjhyexe6909 [place] [address]Dr. Shahbaz Rogel EGFR-NON AF GERMAN >60 Normal >=[address] [facility] Comment on above: Performed By: #### B MP ####[facility] Vdvtmhfcbs6904 [place] [address]Dr. Shahbaz Rogel Glucose [Mass/Vol] 169 mg/dL Critically high 74-106 [facility] Comment on above: Performed By: #### B MP ####[facility] Mwckkauqmv1068 [place] [address]Dr. Shahbaz Rogel Potassium [Moles/Vol] 3.7 mmol/L Normal 3.5-5.1 [facility] Comment on above: Performed By: #### B MP ####[facility] Wbnpauzhsr3493 [place] [address]Dr. Shahbaz Rogel Sodium [Moles/Vol] 140 mmol/L Normal 136-145 [facility] Comment on above: Performed By: #### B MP ####[facility] Jcwuospuqh096[address] [place], [place] [address]Dr. Shahbaz Rogel Urea nitrogen [Mass/Vol] 14.0 mg/dL Normal 7.0-18.0 [facility] Comment on above: Performed By: #### B MP ####[facility] Skgaggrowx4777[address] [place], [place] [address]Dr. Shahbaz Rogel Urea nitrogen/Creatinine [Mass ratio] 18.2 mg/mg Normal [facility] Comment on above: Performed By: #### B MP ####[facility] Emftvgxfch0522[address] [place], [place] [address]Dr. Shahbaz Rogel RESPIRATORY PANEL PLUSon Adenovirus Not detected Normal NOT DETECTED [facility] Comment on above: Performed By: #### R SPLUS ####[facility] Neuoitluwg236[address] [place], [place] [address]Dr. Shahbaz Rogel B. Parapertusis Not detected Normal NOT DETECTED [facility] Comment on above: Performed By: #### R SPLUS ####[facility] Mktymtgxqf638[address] [place], [place] [address]Dr. Shahbaz Rogel B. Pertussis Not detected Normal NOT DETECTED [facility] Comment on above: Performed By: #### R SPLUS ####[facility] Ljzdznutvf9785[address] [place], [place] [address]Dr. Shahbaz Rogel Chlamydia Pneumoniae Not detected Normal NOT DETECTED [facility] Comment on above: Performed By: #### R SPLUS ####[facility] Llpqrfqtgk579468 [address] [place], [place] [address]Dr. Shahbaz Rogel Coronavirus 229E Not detected Normal NOT DETECTED [facility] Comment on above: Performed By: #### R SPLUS ####[facility] Inhqvllviu5345 [place] [address]Dr. Shahbaz [facility] Coronavirus HKU1 Not detected Normal NOT DETECTED [facility] Comment on above: Performed By: #### R SPLUS ####[facility] Mmifijcvvx5982 [place] [address]Dr. Shahbaz Rogel Coronavirus NL63 Not detected Normal NOT DETECTED [facility] Comment on above: Performed By: #### R SPLUS ####[facility] Kswdojsuvi3484[address] [place], [place] [address]Dr. Shahbaz [facility] Coronavirus OC43 Not detected Normal NOT DETECTED [facility] Comment on above: Performed By: #### R SPLUS ####[facility] Dnbeloczxu1744[address] [place], [place] [address]Dr. Shahbaz Rogel Influenza A H1 Not detected Normal NOT DETECTED [facility] Comment on above: Performed By: #### R SPLUS ####[facility] Telnwerpqg1332[address] [place], [place] [address]Dr. Shahbaz Rogel Influenza A H1 2009 Not detected Normal NOT DETECTED [facility] Comment on above: Performed By: #### R SPLUS ####[facility] Pylilhttkp663[address] [place], [place] [address]Dr. Shahbaz Rogel Influenza A H3 Not detected Normal NOT DETECTED [facility] Comment on above: Performed By: #### R SPLUS ####[facility] Pxmmmpscfb62[address] [place], [place] [address]Dr. Shahbaz Rogel Influenza B Not detected Normal NOT DETECTED [facility] Comment on above: Performed By: #### R SPLUS ####[facility] Vzbekuagfg1505[address] [place], [place] [address]Dr. Lilalan Rogel Metapneumovirus Detected Abnormal NOT DETECTED [facility] Comment on above: Performed By: #### R SPLUS ####[facility] Rawzlculik025[address] [place], [place] [address]Dr. Shahbaz Rogel Mycoplas. Pneumoniae Not detected Normal NOT DETECTED [facility] Comment on above: Performed By: #### R SPLUS ####[facility] Kwwyspbkzm8884[address] [place], [place] [address]Dr. Shahbaz Rogel Parainfluenza 1 Not detected Normal NOT DETECTED [facility] Comment on above: Performed By: #### R SPLUS ####[facility] Penhgyoqcb1820[address] [place], [place] [address]Dr. Shahbaz Rogel Parainfluenza 2 Not detected Normal NOT DETECTED [facility] Comment on above: Performed By: #### R SPLUS ####[facility] Imisqxtpeb8285[address] [place], [place] [address]Dr. Shahbaz Rogel Parainfluenza 3 Not detected Normal NOT DETECTED [facility] Comment on above: Performed By: #### R SPLUS ####[facility] Tajicfulap01[address] [place], [place] [address]Dr. Shahbaz Rogel Parainfluenza 4 Not detected Normal NOT DETECTED [facility] Comment on above: Performed By: #### R SPLUS ####[facility] Wrlqismgit7017[address] [place], [place] [address]Dr. Shahbaz Rogel Rhino/Enterovirus Not detected Normal NOT DETECTED [facility] Comment on above: Performed By: #### R SPLUS ####[facility] Jetpbqunjd4178[address] [place], [place] [address]Dr. Shahbaz Rogel RP2 Header 1 RESPIRATORY PANEL: VIRUSES Normal [facility] Comment on above: Performed By: #### R SPLUS ####[facility] Dyqzwsfkli319[address] [place], [place] [address]Dr. Shahbaz Rogel RP2 Header 2 RESPIRATORY PANEL: BACTERIA Normal [facility] Comment on above: Performed By: #### R SPLUS ####[facility] Useaztaimc397[address] [place], [place] [address]Dr. Shahbaz Rogel RSV Not detected Normal NOT DETECTED [facility] Comment on above: Performed By: #### R SPLUS ####[facility] Qnsdjgojnb9895[address] [place], [place] [address]Dr. Shahbaz Rogel SARS-CoV-2 (COVID-19) RNA PAVAN+probe Ql (Unsp spec) Not detected Normal NOT DETECTED [facility] Comment on above: Performed By: #### R SPLUS ####[facility] Azriswfjkb5608 [place] [address]Dr. Shahbaz Rogel CARDIAC ROSALINA 3-6on 3 CK [Catalytic activity/Vol] 148 U/L Normal 26-192 [facility] Comment on above: Performed By: #### C MREP ####[facility] Rwczhancxo3058 [place] [address]Dr. Shahbaz Rogel CK.MB [Mass/Vol] 0.84 ng/mL Normal <=3.60 [facility] Comment on above: Performed By: #### C MREP ####[facility] Wrnklfvqzl01[address] [place], [place] [address]Dr. Shahbaz Rogel HSTROP 6.4 pg/mL Normal 4.0-51.3 [facility] Comment on above: Result Comment: CUT- OFF POINTS HAVE BEEN ESTABLISHED BASED ON THE FOURTH UNIVERSAL DEFINITIONS OF MYOCARDIALINFARCTION. THE UPPER REFERENCE LIMIT (URL) OF TROPONIN, DEFINED THE 99TH PERCENTILE OFcTnI DISTRIBUTION IN A REFERENCE POPULATION, HAS BEEN CONFIRMED THE DECISION THRESHOLDFOR NE DIAGNOSIS. Performed By: #### C MREP ####[facility] Fwzbxizmbm15[address] [place], [place] [address]Dr. Shahbaz Rogel CBC W MANUAL DIFFon 01-04-20 23 ATYPICAL LYMPH # Normal [facility] Comment on above: Performed By: #### C BCMAN ####[facility] Kyzuiwofvc6440 [place] [address]Dr. Shahbaz Juan F ATYPICAL LYMPH % Normal [facility] Comment on above: Performed By: #### C BCMAN ####[facility] [facility] [address] [place] [address]Dr. Shahbaz Rogel BAND # 0.0 103/ul Normal 0.0-0.3 [facility] Comment on above: Performed By: #### C BCMAN ####[facility] Cwmcslnqky[address] [place] [address]Dr. Shahbaz Rogel BAND % 0 % Normal 0-5 [facility] Comment on above: Performed By: #### C BCMAN ####[facility] Yovwswcygq[address] [place] [id number]. Shahbaz Rogel BASOM # 0.00 103/ul Normal 0.00-0.10 [facility] Comment on above: Performed By: #### C CAIN ####[facility] Uvxzhmpkyo[address] [place] [address]Dr. Shahbaz Rogel BASOM % 0.0 % Critically low 0.2-2.0 [facility] Comment on above: Performed By: #### C CAIN ####[facility] Tbupxkhfro8[address] [place] [address]Dr. Shahbaz Rogel BLAST # Normal [facility] Comment on above: Performed By: #### C CAIN ####[facility] Mxwdjklfdi450[address] [place], [place] [address]Dr. Shahbaz Rogel BLAST % Normal [facility] Comment on above: Performed By: #### C CAIN ####[facility] Fdedafqrdw3447[address] [place], [place] [address]Dr. Shahbaz Rogel CORRECTED WBC Normal 4.0-11.0 [facility] Comment on above: Performed By: #### C CAIN ####[facility] Tvgcdlssqy794[address] [place], [place] [address]Dr. Shahbaz Rogel EOS # 0.02 103/ul Normal 0.00-0.70 [facility] Comment on above: Performed By: #### C CAIN ####[facility] Klvhnngdwq9469[address] [place], [place] [address]Dr. Shahbaz Rogel EOS% 1.0 % Normal 0.9-7.0 [facility] Comment on above: Performed By: #### C CAIN ####[facility] Idfweurvnl1504[address] [place], [place] [address]Dr. Shahbaz Rogel HCT 37.5 % Normal 36.0-48.0 [facility] Comment on above: Performed By: #### C CAIN ####[facility] Jnboiqfbbe194[address] [place], [place] [address]Dr. Shahbaz Rogel HGB 12.0 g/dl Normal 12.0-16.0 [facility] Comment on above: Performed By: #### C CAIN ####[facility] Nyvhiqrove30[address] [place] [id number]. Shahbaz Rogel LYMPHM # 0.21 103/ul Critically low 1.20-3.[address] [facility] Comment on above: Performed By: #### C CAIN ####[facility] Uotsbnhlim6307 [place] [id number]. Shahbaz Rogel LYMPHM% 13.0 % Critically low 20.5-60.[address] [facility] Comment on above: Performed By: #### C CAIN ####[facility] Yvddryrnxc9[address] [place] [id number]. Shahbaz Rogel MCH 27.8 pg Normal 26.7-34.[address] [facility] Comment on above: Performed By: #### C CAIN ####[facility] Kdvsaaucmv59[address] [place] [address]Dr. Shahbaz Rogel MCHC 32.0 g/dl Normal 29.9-35.2 [facility] Comment on above: Performed By: #### C CAIN ####[facility] Kskavfnqol2714 [place] [id number]. Shahbaz Rogel MCV 86.8 fL Normal 81.0-99.0 [facility] Comment on above: Performed By: #### C CAIN ####[facility] Mszragnyee1360 [place] [id number]. Shahbaz Rogel METAMYELOCYTE # Normal [facility] Comment on above: Performed By: #### C CAIN ####[facility] Vxwqrcbxpw8187 [place] [phone]. Shahbaz Rogel METAMYELOCYTE % Normal [facility] Comment on above: Performed By: #### C CAIN ####[facility] Rovlfahoob0165[address] [place], [place] [address]Dr. Shahbaz Rogel MONOM# 0.02 103/ul Critically low 0.30-0.[address] [facility] Comment on above: Performed By: #### C CAIN ####[facility] Hpdvljwnfg6612 [place] [id number]. Shahbaz Rogel MONOM% 1.0 % Critically low 1.7-12.[address] [facility] Comment on above: Performed By: #### C CAIN ####[facility] Zvzqzcscbq225[address] [place] [address]Dr. Shahbaz Rogel MPV 9.5 fL Normal 9.5-13.[address] [facility] Comment on above: Performed By: #### C CAIN ####[facility] Bhbesrwyda6144 [place] [id number]. Shahbaz Rogel MYELOCYTE # Normal [facility] Comment on above: Performed By: #### C CAIN ####[facility] Neeblbzzrk4872 [place] [phone]. Shahbaz Rogel MYELOCYTE % Normal [facility] Comment on above: Performed By: #### C CAIN ####[facility] Hrbfqrpkps69[address] [place] [address]Dr. Shahbaz Rogel NRBC Normal [facility] Comment on above: Performed By: #### C CAIN ####[facility] Jxohlowurn9969[address] [place], [place] [address]Dr. Shahbaz Rogel PLT 173 103/ul Normal 150-450 [facility] Comment on above: Performed By: #### C CAIN ####[facility] Noefbksusa44[address] [place], [place] [address]Dr. Shahbaz Rogel RBC 4.32 106/ul Normal 4.20-5.40 [facility] Comment on above: Performed By: #### C CAIN ####[facility] Ybvizafvjs1119 [place] [phone]. Shahbaz Rogel RDW 13.1 % Normal 11.0-15.0 [facility] Comment on above: Performed By: #### C CAIN ####[facility] Xsoffrzpuo613[address] [place], [place] [address]Dr. Shahbaz Rogel SEG # 1.36 103/ul Critically low 1.40-6.[address] [facility] Comment on above: Performed By: #### C CAIN ####[facility] Jgqyxgvqgo044[address] [place], [place] [address]Dr. Shahbaz Rogel SEG % 85.0 % Critically high 43.0-75.[address] [facility] Comment on above: Performed By: #### C CAIN ####[facility] Wmswlfeyrd7580[address] [place], [place] [address]Dr. Shahbaz Rogel WBC 1.6 103/ul Critically low 4.0-11.[address] [facility] Comment on above: Performed By: #### C CAIN ####[facility] Wgkhpuifei0497[address] [place], [place] [address]Dr. Shahbaz Rogel CT CHEST WO CONon 01-03-2023 CT CHEST WO CON Normal [facility] ER URINE PROFILEon 3 Bilirubin Ql (U) Negative Normal NEGATIVE [facility] Comment on above: Performed By: #### E RUR ####[facility] Uvvkxkomoz1218[address] [place], [place] [address]Dr. Shahbaz Rogel Clarity (U) CLEAR Normal CLEAR [facility] Comment on above: Performed By: #### E RUR ####[facility] Pamgfgkznq9723[address] [place], [place] [address]Dr. Shahbaz Rogel Color (U) LT. YELLOW Normal YELLOW [facility] Comment on above: Performed By: #### E RUR ####[facility] Ssemycfglz3429[address] [place], [place] [address]Dr. Shahbaz Rogel ERUAHD A micrscopic examina tion will be performed if indicated. Normal [facility] Comment on above: Performed By: #### E RUR ####[facility] Yuggbrhqxo7400[address] [place], [place] [address]Dr. Shahbaz Rogel Glucose Ql (U) Negative Normal NEGATIVE [facility] Comment on above: Performed By: #### E RUR ####[facility] Iporaehcip528[address] [place], [place] [address]Dr. Shahbaz Rogel Hemoglobin Ql (U) Negative Normal NEGATIVE [facility] Comment on above: Performed By: #### E RUR ####[facility] Sznxbmwpeg4080[address] [place], [place] [address]Dr. Shahbaz Rogel Ketones Ql (U) Negative Normal NEGATIVE [facility] Comment on above: Performed By: #### E RUR ####[facility] Mbbfsqolbp4268 [place] [address]Dr. Lilajarrod Juan F LEUKOCYTES Negative Normal NEGATIVE [facility] Comment on above: Performed By: #### E RUR ####[facility] Dnpwkzemqr0478[address] [place], [place] [address]Dr. Lilajarrod Rogel Nitrite Ql (U) Negative Normal NEGATIVE [facility] Comment on above: Performed By: #### E RUR ####[facility] Xgsywrpumx4899[address] [place], [place] [address]Dr. Shahbaz Rogel pH (U) 6.0 [pH] Normal 5-9 [facility] Comment on above: Performed By: #### E RUR ####[facility] Osqiujvoku246[address] [place], [place] [address]Dr. Shahbaz Rogel SPEC GRAVITY <=1.005 Abnormal 1.005-<=1. [address] [facility] Comment on above: Performed By: #### E RUR ####[facility] Ipbfocymox0967[address] [place], [place] [address]Dr. Shahbaz Rogel UA PROTEIN Negative Normal NEGATIVE/ TRACE [facility] Comment on above: Performed By: #### E RUR ####[facility] Nlxnabgmxu34[address] [place], [place] [address]Dr. Shahbaz Rogel UR MICRO IND NOT INDICATED Normal [facility] Comment on above: Performed By: #### E RUR ####[facility] Usiqlwtopl7295[address] [place], [place] [address]Dr. Shahbaz Rogel Urobilinogen Qn (U) 0.2 {Melida'U}/dL Normal 0.2 - 1. 0 [facility] Comment on above: Performed By: #### E RUR ####[facility] Hnysgawrjh3246[address] [place], [place] [address]Dr. Shahbaz Rogel LACTATE/LACTIC ACIDon 2022 Lactate [Moles/Vol] 1.5 mmol/L Normal 0.4-2.[address] [facility] Comment on above: Performed By: #### L ACT ####[facility] Jmwztdxhif8114[address] [place], [place] [address]Dr. Shahbaz Rogel PROF CHEM 8 (BAS METB)on Anion gap [Moles/Vol] 11.6 mmol/L Normal [facility] Comment on above: Performed By: #### B MP ####[facility] Usmwteurrv[address] [place] [address]Dr. Shahbaz Rogel Calcium [Mass/Vol] 8.1 mg/dL Critically low 8.5-10.1 [facility] Comment on above: Performed By: #### B MP ####[facility] Cciqsxrved8[address] [place] [address]Dr. Shahbaz Rogel Chloride [Moles/Vol] 109 mmol/L Critically high 98-[address] [facility] Comment on above: Performed By: #### B MP ####[facility] Oxwhbcuyjl9864[address] [place], [place] [address]Dr. Shahbaz Rogel CO2 [Moles/Vol] 25.2 mmol/L Normal 21.0-32.[address] [facility] Comment on above: Performed By: #### B MP ####[facility] Luhgvnjflm810[address] [place], [place] [address]Dr. Shahbaz Rogel Creatinine [Mass/Vol] 0.89 mg/dL Normal 0.55-1.[address] [facility] Comment on above: Performed By: #### B MP ####[facility] Orjmnwihul3018[address] [place], [place] [address]Dr. Shahbaz Rogel EGFR-AF GERMAN >60 Normal >=[address] [facility] Comment on above: Performed By: #### B MP ####[facility] Llygtnvfrs0634 [place] [address]Dr. Shahbaz Rogel EGFR-NON AF GERMAN >60 Normal >=[address] [facility] Comment on above: Performed By: #### B MP ####[facility] Higfctbgzn024168 [address] [place], [place] [address]Dr. Shahbaz Rogel Glucose [Mass/Vol] 167 mg/dL Critically high 74-106 [facility] Comment on above: Performed By: #### B MP ####[facility] Nxyixfhtrp1215[address] [place], [place] [address]Dr. Shahbaz Rogel Potassium [Moles/Vol] 3.8 mmol/L Normal 3.5-5.1 [facility] Comment on above: Performed By: #### B MP ####[facility] Cjxdndnrak16[address] [place] [address]Dr. Shahbaz Rogel Sodium [Moles/Vol] 142 mmol/L Normal 136-145 [facility] Comment on above: Performed By: #### B MP ####[facility] Frdopiqnix2250[address] [place], [place] [address]Dr. Shahbaz Rogel Urea nitrogen [Mass/Vol] 9.0 mg/dL Normal 7.0-18.0 [facility] Comment on above: Performed By: #### B MP ####[facility] Jjbtbzbcba1874[address] [place], [place] [address]Dr. Shahbaz Rogel Urea nitrogen/Creatinine [Mass ratio] 10.1 mg/mg Normal [facility] Comment on above: Performed By: #### B MP ####[facility] Zirehhjvgb6923[address] [place], [place] [address]Dr. Shahbaz Rogel CARDIAC ROSALINA ADMITon 023 CK [Catalytic activity/Vol] 173 U/L Normal 26-192 [facility] Comment on above: Performed By: #### C EZEKIEL, BMP ####[facility] Mkqmofuyho1809[address] [place], [place] [address]Dr. Shahbaz Rogel CK.MB [Mass/Vol] 0.55 ng/mL Normal <=3.60 [facility] Comment on above: Performed By: #### C EZEKIEL, BMP ####[facility] Nsnxrhjall650[address] [place], [place] [address]Dr. Shahbaz Rogel HSTROP 5.9 pg/mL Normal 4.0-51.3 [facility] Comment on above: Result Comment: CUT- OFF POINTS HAVE BEEN ESTABLISHED BASED ON THE FOURTH UNIVERSAL DEFINITIONS OF MYOCARDIALINFARCTION. THE UPPER REFERENCE LIMIT (URL) OF TROPONIN, DEFINED THE 99TH PERCENTILE OFcTnI DISTRIBUTION IN A REFERENCE POPULATION, HAS BEEN CONFIRMED THE DECISION THRESHOLDFOR NE DIAGNOSIS. Performed By: #### C EZEKIEL, BMP ####[facility] Chkldjnpsv7[address] [place] [address]Dr. Shahbaz Rogel LEN 76 ng/mL Normal 9-82 [facility] Comment on above: Performed By: #### C EZEKIEL, BMP ####[facility] Rreiosmdco8629[address] [place], [place] [address]Dr. Shahbaz Juan F CBC W MANUAL DIFFon 01-03-20 23 ATYPICAL LYMPH # Normal [facility] Comment on above: Performed By: #### C BCMAN ####[facility] Oggjhdmoqn2422[address] [place], [place] [address]Dr. Shahbaz Rogel ATYPICAL LYMPH % Normal [facility] Comment on above: Performed By: #### C CHANELMAN ####[facility] Tnnipjmkmi925[address] [place], [place] [address]Dr. Shahbaz Juan F BAND # Normal 0.0-0.3 [facility] Comment on above: Performed By: #### C CAIN ####[facility] Fxfybvekef6170[address] [place], [place] [address]Dr. Shahbaz Rogel BAND % Normal 0-5 [facility] Comment on above: Performed By: #### C CAIN ####[facility] Znssueamqm2087[address] [place], [place] [address]Dr. Shahbaz Juan F BASOM # 0.00 103/ul Normal 0.00-0.10 [facility] Comment on above: Performed By: #### C CAIN ####[facility] Wsqufwbyry1174[address] [place], [place] [address]Dr. Shahbaz Rogel BASOM % 0.0 % Critically low 0.2-2.0 [facility] Comment on above: Performed By: #### C CAIN ####[facility] Fqooxycpco1965[address] [place], [place] [address]Dr. Lilajarrod Rogel BLAST # Normal [facility] Comment on above: Performed By: #### C CHANELMAN ####[facility] Raqqunezfk2701[address] [place], [place] [address]Dr. Lilajarrod Rogel BLAST % Normal [facility] Comment on above: Performed By: #### C CANI ####[facility] Krnhcoggvm4126[address] [place], [place] [address]Dr. Shahbaz Rogel CORRECTED WBC Normal 4.0-11.[address] [facility] Comment on above: Performed By: #### C CAIN ####[facility] Jzhboeyjpy5538 [place] [address]Dr. Shahbaz Rogel EOS # 0.03 103/ul Normal 0.00-0.70 [facility] Comment on above: Performed By: #### C CAIN ####[facility] Kvkjajlyhp0431 [place] [address]Dr. Shhabaz Rogel EOS% 1.0 % Normal 0.9-7.0 [facility] Comment on above: Performed By: #### C CAIN ####[facility] Ususwblvnd1479 [place] [address]Dr. Shahbaz Rogel HCT 42.8 % Normal 36.0-48.[address] [facility] Comment on above: Performed By: #### C CAIN ####[facility] Wzawtlznvj16[address] [place], [place] [address]Dr. Shahbaz Rogel HGB 14.1 g/dl Normal 12.0-16.[address] [facility] Comment on above: Performed By: #### C CAIN ####[facility] Jfjadhxoku089[address] [place], [place] [address]Dr. Shahbaz Rogel LYMPHM # 0.64 103/ul Critically low 1.20-3.[address] [facility] Comment on above: Performed By: #### C CAIN ####[facility] Kwyljrlveq1980[address] [place], [place] [address]Dr. Shahbaz Rogel LYMPHM% 23.0 % Normal 20.5-60.0 [facility] Comment on above: Performed By: #### C CAIN ####[facility] Qenvefmmul2449[address] [place], [place] [address]Dr. Shahbaz Rogel MCH 28.0 pg Normal 26.7-34.0 [facility] Comment on above: Performed By: #### C CAIN ####[facility] Gzykucbusl5749[address] [place], [place] [address]Dr. Shahbaz Rogel MCHC 32.9 g/dl Normal 29.9-35.2 [facility] Comment on above: Performed By: #### C CAIN ####[facility] Hokwtohwwj0568 [place] [id number]. Shahbaz Rogel MCV 84.9 fL Normal 81.0-99.0 [facility] Comment on above: Performed By: #### C CAIN ####[facility] Addoramzue6547 [place] [id number]. Shahbaz Rogel METAMYELOCYTE # Normal [facility] Comment on above: Performed By: #### C CAIN ####[facility] Uwfkblhjxw9030 [place] [phone]. Shahbaz Rogel METAMYELOCYTE % Normal [facility] Comment on above: Performed By: #### C CAIN ####[facility] Rzqmqivmzf04[address] [place], [place] [address]Dr. Shahbaz Rogel MONOM# 0.31 103/ul Normal 0.30-0.[address] [facility] Comment on above: Performed By: #### C CAIN ####[facility] Sjgggsqhgl6289[address] [place], [place] [address]Dr. Shahbaz oRgel MONOM% 11.0 % Normal 1.7-12.[address] [facility] Comment on above: Performed By: #### Cheri BARLOW ####[facility] Kmrydgapiq1112[address] [place], [place] [address]Dr. Shahbaz Rogel MPV 9.5 fL Normal 9.5-13.5 [facility] Comment on above: Performed By: #### Cheri BARLOW ####[facility] Nnwuohbcau[address] [place], [place] [address]Dr. Shahbaz Rogel MYELOCYTE # Normal [facility] Comment on above: Performed By: #### C CAIN ####[facility] Yyrxfrlblp5981 [place] [phone]. Shahbaz Rogel MYELOCYTE % Normal [facility] Comment on above: Performed By: #### C CAIN ####[facility] Ryhnoqflkg9416 [place] [address]Dr. Shahbaz Rogel NRBC Normal [facility] Comment on above: Performed By: #### Cheri BARLOW ####[facility] Lmzhckapgn4556 [place], [place] [address]Jn. Shahbaz Rogel PLT 197 103/ul Normal 150-450 [facility] Comment on above: Performed By: #### Cheri BARLOW ####[facility] Folaqdgwhy6085 [place], [place] [address]Rf. Shahbaz Rogel RBC 5.04 106/ul Normal 4.20-5.40 [facility] Comment on above: Performed By: #### Cheri BARLOW ####[facility] Eogrepjjuz8084 [place], [place] [address]Dp. Shahbaz Rogel RDW 13.2 % Normal 11.0-15.0 [facility] Comment on above: Performed By: #### Cheri BARLOW ####[facility] Yqtksfwjof8813 [place], [place] [address]Ge. Shahbaz Rogel SEG # 1.82 103/ul Normal 1.40-6.50 [facility] Comment on above: Performed By: #### Cheri BARLOW ####[facility] Fdlujddfvv5005 [place], [place] [address]Ub. Shahbaz Rogel SEG % 65.0 % Normal 43.0-75.0 [facility] Comment on above: Performed By: #### Cheri BARLOW ####[facility] Vgfufkurgz5674 [place], [place] [address]Pj. Shahbaz Rogel WBC 2.8 103/ul Critically low 4.0-11.0 [facility] Comment on above: Performed By: #### Cheri BARLOW ####[facility] Gvsydhkowc4104 [place] [id number]. Shahbaz Rogel Covid-19 PCR ([employer]VDWESTOVER AIR FORCE [...] for this test is supported by the [employer] of [employer] and Human Service's declaration that [...] Performed By: #### C VDTBH ####[facility] Vunsjxflhj60[address] [place], [place] [address]DrChen Rogel D-DIMERon 01-02-2023 D-DIMER 0.38 mg/L FEU Normal <=0.[address] [facility] Comment on above: Performed By: #### D DIM ####[facility] Yagfkkqwvx8[address] [place], [place] [address]DrChen Rogel D-DIMER COMMENTS SEE BELOW Normal The [...] Performed By: #### D DIM ####[facility] Pjcqtqimpj09[address] [place] [address]Dr. Shahbaz Rogel LACTATE/LACTIC ACIDon 2022 Lactate [Moles/Vol] 2.1 mmol/L Critically high 0.4-2.[address] [facility] Comment on above: Performed By: #### L ACT ####[facility] Wrewyjxwel914[address] [place], [place] [address]DrChen Rogel PROF CHEM 8 (BAS METB)on Anion gap [Moles/Vol] 14.3 mmol/L Normal [facility] Comment on above: Performed By: #### C EZEKIEL, BMP ####[facility] Npbbsjioub9633 [place] [address]Dr. Shahbaz Rogel Calcium [Mass/Vol] 9.0 mg/dL Normal 8.5-10.[address] [facility] Comment on above: Performed By: #### C JOSSYM, BMP ####[facility] Tbmwzskrga1657 [place] [address]Dr. Shahbaz Rogel Chloride [Moles/Vol] 102 mmol/L Normal 98-107 [facility] Comment on above: Performed By: #### C EZEKIEL, BMP ####[facility] Wjhhyqkbvq3279 [place] [address]Dr. Shahbaz Rogel CO2 [Moles/Vol] 25.5 mmol/L Normal 21.0-32.[address] [facility] Comment on above: Performed By: #### C EZEKIEL, BMP ####[facility] Zaozbfsnli110[address] [place], [place] [address]Dr. Shahbaz Rogel Creatinine [Mass/Vol] 1.01 mg/dL Normal 0.55-1.[address] [facility] Comment on above: Performed By: #### C EZEKIEL, BMP ####[facility] Hpjrdoueur3235[address] [place], [place] [address]Dr. Shahbaz Rogel EGFR-AF GERMAN >60 Normal >=[address] [facility] Comment on above: Performed By: #### C EZEKIEL, BMP ####[facility] Zgahccwexi7748[address] [place], [place] [address]Dr. Shahbaz Rogel EGFR-NON AF GERMAN 56 mL/min/1.73m2 Critically low >=60 [facility] Comment on above: Performed By: #### C EZEKIEL, BMP ####[facility] Tynrnkqcgy0765[address] [place], [place] [address]Dr. Shahbaz Rogel Glucose [Mass/Vol] 105 mg/dL Normal 74-106 [facility] Comment on above: Performed By: #### C MADM, BMP ####[facility] Yjpqfoaonl9623[address] [place], [place] [address]Dr. Shahbaz Rogel Potassium [Moles/Vol] 3.8 mmol/L Normal 3.5-5.1 [facility] Comment on above: Performed By: #### C EZEKIEL, BMP ####[facility] Bbsyggfhjk0623[address] [place], [place] [address]Dr. Shahbaz Rogel Sodium [Moles/Vol] 138 mmol/L Normal 136-[address] [facility] Comment on above: Performed By: #### C EZEKIEL, BMP ####[facility] Idijtrfxmv204368 [address] [place], [place] [address]Dr. Shahbaz Rogel Urea nitrogen [Mass/Vol] 9.0 mg/dL Normal 7.0-18.0 [facility] Comment on above: Performed By: #### C EZEKIEL, BMP ####[facility] Kdxznbhtdm2349[address] [place], [place] [address]Dr. Shahbaz Rogel Urea nitrogen/Creatinine [Mass ratio] 8.9 mg/mg Normal [facility] Comment on above: Performed By: #### C EZEKIEL, BMP ####[facility] Bmeexgcuhh294[address] [place], [place] [address]Dr. Shahbaz Rogel XR CHEST 1 Von 01-02-2023 XR CHEST 1 V Normal [facility] INSULINon 11-02-2022 Insulin 6.0 uIU/mL Normal 2.6-24.9 [facility] Comment on above: Performed By: #### I NSULIN ####[facility] Ovgqcgcxas13[address] [place], [place] [address]Dr. Shahbaz Rogel CBC AUTO DIFFon 11-01-2022 BASO # 0.0 103/ul Normal 0.0-0.1 [facility] Comment on above: Performed By: #### C BC ####[facility] Pbikeymweo1574[address] [place], [place] [address]Dr. Shahbaz Rogel Basophils/100 WBC (Bld) 0.5 % Normal 0.2-2.0 [facility] Comment on above: Performed By: #### C BC ####[facility] Lmhrqwjkdc8464[address] [place], [place] [address]Dr. Shahbaz Rogel EO # 0.2 103/ul Normal 0.0-0.7 [facility] Comment on above: Performed By: #### C BC ####[facility] Usghyggpou7524 [place] [address]Dr. Shahbaz Rogel Eosinophils/100 WBC (Bld) 5.2 % Normal 0.9-7.0 [facility] Comment on above: Performed By: #### C BC ####[facility] Stnokjgbzy6659[address] [place], [place] [address]Dr. Shahbaz Rogel Erythrocyte distribution width (RBC) [Ratio] 12.7 % Normal 11.0-15.[address] [facility] Comment on above: Performed By: #### C BC ####[facility] Soozqjquwl9257[address] [place], [place] [address]Dr. Shahbaz Rogel Hematocrit (Bld) [Volume fraction] 46.4 % Normal 36.0-48.[address] [facility] Comment on above: Performed By: #### C BC ####[facility] Eidvsxumcv15[address] [place], [place] [address]Dr. Shahbaz Rogel Hemoglobin (Bld) [Mass/Vol] 14.9 g/dL Normal 12.0-16.[address] [facility] Comment on above: Performed By: #### C BC ####[facility] Qlqqccegxv5[address] [place], [place] [address]Dr. Shahbaz Rogel IG # 0.00 10e3/ul Normal 0.00-0.[address] [facility] Comment on above: Performed By: #### C BC ####[facility] Lcalmfkfwc9[address] [place], [place] [address]Dr. Shahbaz Rogel IG % 0.0 % Normal 0.0-0.5 [facility] Comment on above: Performed By: #### C BC ####[facility] Xsordjlvmc55[address] [place], [place] [address]Dr. Shahbaz Rogel LYMPH # 1.1 103/ul Critically low 1.2-3.8 [facility] Comment on above: Performed By: #### C BC ####[facility] Nlzggmyhmq[address] [place], [place] [address]Dr. Shahbaz Rogel Lymphocytes/100 WBC (Bld) 25.5 % Normal 20.5-60.0 [facility] Comment on above: Performed By: #### C BC ####[facility] Mqvoazwedk87[address] [place] [address]Dr. Shahbaz Rogel MANUAL DIFF REQ NO Normal [facility] Comment on above: Performed By: #### C BC ####[facility] Sxvwjwouvo6634 [place] [id number]. Shahbaz Rogel MCH (RBC) [Entitic mass] 27.8 pg Normal 26.7-34.[address] [facility] Comment on above: Performed By: #### C BC ####[facility] Ibeawldrff2398 [place] [address]Dr. Shahbaz Rogel MCHC (RBC) [Mass/Vol] 32.1 g/dL Normal 29.9-35.2 [facility] Comment on above: Performed By: #### C BC ####[facility] [address] [place], [place] [address]Dr. Shahbaz Rogel MCV (RBC) [Entitic vol] 86.6 fL Normal 81.0-99.[address] [facility] Comment on above: Performed By: #### C BC ####[facility] By[address]mu[address] [place], [place] [address]Dr. Shahbaz Rogel MONO # 0.2 103/ul Critically low 0.3-0.[address] [facility] Comment on above: Performed By: #### C BC ####[facility] Ibquhucoxb[address] [place], [place] [address]Dr. Shahbaz Rogel Monocytes/100 WBC (Bld) 5.4 % Normal 1.7-12.0 [facility] Comment on above: Performed By: #### C BC ####[facility] [address] [place], [place] [address]DrChen Rogel NEUT # 2.7 103/ul Normal 1.4-6.5 [facility] Comment on above: Performed By: #### C BC ####[facility] Gyuc[address]trkns[address] [place], [place] [address]Dr. Shahbaz Rogel Neutrophils/100 WBC (Bld) 63.4 % Normal 43.0-75.0 [facility] Comment on above: Performed By: #### C BC ####[facility] X[address] [place] [id number]. Shahbaz Rogel Platelet mean volume (Bld) [Entitic vol] 9.4 fL Critically low 9.5-13.[address] [facility] Comment on above: Performed By: #### C BC ####[facility] [address] [place] [address]Dr. Shahbaz Rogel PLT 216 103/ul Normal 150-450 [facility] Comment on above: Performed By: #### C BC ####[facility] Lufenvjdxj[address] [place] [id number]. Shahbaz Rogel RBC 5.36 106/ul Normal 4.20-5.40 [facility] Comment on above: Performed By: #### C BC ####[facility] Ylx[address]bek[address] [place] [address]Dr. Shahbaz Rogel WBC 4.2 103/ul Normal 4.0-11.0 [facility] Comment on above: Performed By: #### C BC ####[facility] T[address]rfxb4[address] [place] [id number]. Shahbaz Rogel FREE THYROXINE INDEX T7on FTI 2.92 Normal 1.30-4.[address] [facility] Comment on above: Performed By: #### C MP, LIPID, T7, TSH ####[facility] [address] [place] [address]Dr. Shahbaz Juan F T3U 37.0 % Normal 30.0-39.[address] [facility] Comment on above: Performed By: #### C MP, LIPID, T7, TSH ####[facility] [address]jm[address] [place] [id number]. Shahbaz Juan F T4 [Mass/Vol] 7.90 ug/dL Normal 4.80-13.[address] [facility] Comment on above: Performed By: #### C MP, LIPID, T7, TSH ####[facility] Rkav[address]jgqy[address] [place] [id number]. Shahbaz Rogel GLYCOHEMOGLOBIN A1Con 2022 ADA RECOMMENDATION SEE BELOW Normal [facility] Comment on above: Result Comment: ADA RECOMMENDED LIMIT 4.0 - 6.0 ADA THERAPEUTIC TARGET < 7.0 ACTION SUGGESTED > 7.0 Performed By: #### A 1C ####[facility] [address] [place], [place] [address]Dr. Shahbaz Rogel Glucose [Mass/Vol] 120 mg/dL Normal [facility] Comment on above: Performed By: #### A 1C ####[facility] S[address] [place], [place] [address]Dr. Shahbaz Rogel HbA1c (Bld) [Mass fraction] 5.8 % Normal 4.5-6.2 [facility] Comment on above: Performed By: #### A 1C ####[facility] Evktjwsrsm[address] [place], [place] [address]Dr. Shahbaz Rogel IRONon 11-01-2022 Iron [Mass/Vol] 54.0 ug/dL Normal 50.0-170.0 [facility] Comment on above: Performed By: #### I GRIS ####[facility] Htljyrltqv[address] [place], [place] [address]Dr. Shahbaz Rogel LIPID PROFILEon 11-01-2022 CHOL-HDL RATIO NORM SEE BELOW Normal [facility] Comment on above: Result Comment: 3.3 - 4.4 LOW RISK 4.4 - 7.1 AVERAGE RISK 7.1 - 11.0 MODERATE RISK >11.0 HIGH RISK Performed By: #### C MP, LIPID, T7, TSH ####[facility] Uggrgu[address]vwu[address] [place], [place] [address]Dr. Shahbaz Rogel Cholesterol [Mass/Vol] 203 mg/dL Critically high <=200 [facility] Comment on above: Performed By: #### C MP, LIPID, T7, TSH ####[facility] [address]iuv[address]wng[address] [place], [place] [address]Dr. Shahbaz Rogel Cholesterol in HDL [Mass/Vol] 42 mg/dL Normal 40-60 [facility] Comment on above: Performed By: #### C MP, LIPID, T7, TSH ####[facility] [address]qtp[address] [place], [place] [address]Dr. Shahbaz Rogel Cholesterol in LDL [Mass/Vol] 121.4 mg/dL Normal [facility] Comment on above: Performed By: #### C MP, LIPID, T7, TSH ####[facility] [address]nkfkgx[address] [place] [id number]. Shahbaz Rogel Cholesterol.total/Chol esterol in HDL [Mass ratio] 4.8 {ratio} Normal [facility] Comment on above: Performed By: #### C MP, LIPID, T7, TSH ####[facility] T[address]raz[address]loj[address] [place] [id number]. Shahbaz Rogel HDL NORMAL > or = 60 mg/dl - LO W CARDIOVASCULAR RISK <40 mg/dl - HIGH CARDIOVASCULAR RISK Normal [facility] Comment on above: Performed By: #### C MP, LIPID, T7, TSH ####[facility] [address]ells[address]hsje[address] [place] [id number]. Shahbaz Rogel LDL CALC NORMAL SEE BELOW Normal [facility] Comment on above: Result Comment: <100 mg/dl OPTIMAL 100 - 129 mg/dl NEAR OR ABOVE OPTIMAL 130 - 159 mg/dl BORDERLINE HIGH 160 - 189 mg/dl HIGH >190 mg/dl VERY HIGH Performed By: #### C MP, LIPID, T7, TSH ####[facility] [address]awzxe[address] [place] [phone]. Shahbaz Rogel Triglyceride [Mass/Vol] 198 mg/dL Critically high <=150 [facility] Comment on above: Performed By: #### C MP, LIPID, T7, TSH ####[facility] [address]ht[address]ain[address] [place] [phone]. Shahbaz Rogel VLDL CALC 39.6 mg/dL Normal [facility] Comment on above: Performed By: #### C MP, LIPID, T7, TSH ####[facility] Jezmicbuof[address] [place] [phone]. Shahbaz Rogel PROF 14(COMP METB)on 023 Albumin [Mass/Vol] 4.1 g/dL Normal 3.4-5.0 [facility] Comment on above: Performed By: #### C MP, LIPID, T7, TSH ####[facility] Qwqeflmhio[address] [place] [address]Dr. Shahbaz Rogel Albumin/Globulin [Mass ratio] 1.0 {ratio} Normal [facility] Comment on above: Performed By: #### C MP, LIPID, T7, TSH ####[facility] [address]wag[address] [place] [address]Dr. Shahbaz Juan F ALP [Catalytic activity/Vol] 126 U/L Critically high 46-116 [facility] Comment on above: Performed By: #### C MP, LIPID, T7, TSH ####[facility] [address]xmchoig[address] [place] [address]Dr. Shahbaz Rogel ALT [Catalytic activity/Vol] 30 U/L Normal 14-[address] [facility] Comment on above: Performed By: #### C MP, LIPID, T7, TSH ####[facility] Ikfasucrpa[address] [place] [address]Dr. Shahbaz Rogel Anion gap [Moles/Vol] 12.3 mmol/L Normal [facility] Comment on above: Performed By: #### C MP, LIPID, T7, TSH ####[facility] Vzsdyuvnpv7439 [place] [address]Dr. Shahbaz Rogel AST [Catalytic activity/Vol] 25 U/L Normal 15-[address] [facility] Comment on above: Performed By: #### C MP, LIPID, T7, TSH ####[facility] Ngzbpiehaq[address] [place] [address]Dr. Shahbaz Rogel Bilirubin [Mass/Vol] 0.5 mg/dL Normal 0.2-1.0 [facility] Comment on above: Performed By: #### C MP, LIPID, T7, TSH ####[facility] Tehvcaskvm[address] [place] [address]Dr. Shahbaz Rogel Calcium [Mass/Vol] 9.4 mg/dL Normal 8.5-10.[address] [facility] Comment on above: Performed By: #### C MP, LIPID, T7, TSH ####[facility] Uiilqjigut[address] [place] [address]Dr. Shahbaz Rogel Chloride [Moles/Vol] 104 mmol/L Normal 98-107 [facility] Comment on above: Performed By: #### C MP, LIPID, T7, TSH ####[facility] [address]uztksla[address] [place] [address]Dr. Shahbaz Rogel CO2 [Moles/Vol] 29.6 mmol/L Normal 21.0-32.0 [facility] Comment on above: Performed By: #### C MP, LIPID, T7, TSH ####[facility] Yvirndfvci[address] [place] [address]Dr. Shahbaz Rogel Creatinine [Mass/Vol] 0.91 mg/dL Normal 0.55-1.02 [facility] Comment on above: Performed By: #### C MP, LIPID, T7, TSH ####[facility] Gwajcwbqqx[address] [place] [address]Dr. Shahbaz Rogel EGFR-AF GERMAN >60 Normal >=60 [facility] Comment on above: Performed By: #### C MP, LIPID, T7, TSH ####[facility] Itvacibwtk4[address] [place] [address]Dr. Shahbaz Rogel EGFR-NON AF GERMAN >60 Normal >=60 [facility] Comment on above: Performed By: #### C MP, LIPID, T7, TSH ####[facility] M[address] [place], [place] [address]Dr. Shahbaz Rogel Globulin (S) [Mass/Vol] 4.0 g/dL Normal [facility] Comment on above: Performed By: #### C MP, LIPID, T7, TSH ####[facility] [address]wnssqeu[address] [place] [address]Dr. Shahbaz Rogel Glucose [Mass/Vol] 85 mg/dL Normal 74-106 [facility] Comment on above: Performed By: #### C MP, LIPID, T7, TSH ####[facility] Dwyekxexad[address] [place] [address]Dr. Shahbaz Rogel Potassium [Moles/Vol] 3.9 mmol/L Normal 3.5-5.1 [facility] Comment on above: Performed By: #### C MP, LIPID, T7, TSH ####[facility] Xkyq[address]vycoe[address] [place] [address]Dr. Shahbaz Rogel Protein [Mass/Vol] 8.1 g/dL Normal 6.4-8.2 [facility] Comment on above: Performed By: #### C MP, LIPID, T7, TSH ####[facility] Wshwlzeqlv05[address] [place] [phone]. Shahbaz Rogel Sodium [Moles/Vol] 142 mmol/L Normal 136-145 [facility] Comment on above: Performed By: #### C MP, LIPID, T7, TSH ####[facility] Yykyueseug67[address] [place] [phone]. Shahbaz Rogel Urea nitrogen [Mass/Vol] 9.0 mg/dL Normal 7.0-18.0 [facility] Comment on above: Performed By: #### C MP, LIPID, T7, TSH ####[facility] Rybjybndpf[address] [place] [address]Dr. Shahbaz Rogel Urea nitrogen/Creatinine [Mass ratio] 9.9 mg/mg Normal [facility] Comment on above: Performed By: #### C MP, LIPID, T7, TSH ####[facility] Lhwwipysqb37[address] [place] [address]Dr. Shahbaz Rogel TSHon 11-01-2022 TSH 0.045 uIU/mL Critically low 0.358-3.74 0 [facility] Comment on above: Performed By: #### C MP, LIPID, T7, TSH ####[facility] [address]jfixuozx[address] [place] [address]Dr. Shahbaz Rogel XR HUMERUS LT MIN 2Von 10-01 XR HUMERUS LT MIN 2V Normal [facility] XR LSPINE 2_3 VIEWSon 2021 XR LSPINE 2_3 VIEWS Normal [facility] XR CHEST 1 Von 08-25-2022 XR CHEST 1 V Normal [facility] ACID FAST SMEAR AND CXon Acid Fast Culture Negative Normal [facility] Comment on above: Result Comment: No a ninfa fast bacilli isolated after 6 weeks. Performed By: #### A FB ####[facility] Qfnejjkyyb[address] [place] [address]Dr. Shahbaz Rogel Acid Fast Smear Negative Normal [facility] Comment on above: Performed By: #### A FB ####[facility] [address] [place], [place] [address]Qe. Shahbaz Rogel [employer] Specimen Processing Concentration Normal [facility] Comment on above: Performed By: #### A FB ####[facility] [address]28[address] [place], [place] [address]Xw. Shahbaz Rogel Bacteria identified Anaer cx Nom (Unsp spec)Ordered By: Rodolfo Harley on 08-13-2022 Anaerobic microbial culture No Anaerobes Isolated 3 Days [facility] Basophils Auto (Bld) [#/Vol] Ordered By: Rodolfo Harley on 08-12-2022 Basophils (Bld) [#/Vol] 0.0 10*3/uL 0.0-0.2 [facility] Basophils/100 WBC Auto (Bld) Ordered By: Rodolfo Harley on 08-12-2022 Basophils/100 WBC (Bld) 0.4 % . [facility] Creatinine and Glomerular fi ltration rate.predicted panel (S/P/Bld)Ordered By: Rodolfo Harley on 08-12-2022 Creatinine [Mass/Vol] 0.74 mg/dL 0.44-1.03 [facility] Eosinophils Auto (Bld) [#/Vo l]Ordered By: Rodolfo Harley on 08-12-2022 Eosinophils (Bld) [#/Vol] 0.0 10*3/uL 0.0-0.45 [facility] Eosinophils/100 WBC Auto (Bl d)Ordered By: Rodolfo Harley on 08-12-2022 Eosinophils/100 WBC (Bld) 0.0 % . [facility] Erythrocyte distribution wid th Auto (RBC) [Ratio]Ordered By: Rodolfo Harley on 08-12-2022 Erythrocyte distribution width (RBC) [Ratio] 14.2 % 11.9-15.3 [facility] Estimated glomerular filtrat ion rate (GFR) non- AmericanOrdered By: Rodolfo Harley on 08-12-2022 GFR/1.73 sq M.predicted among non-blacks MDRD (S/P/Bld) [Vol rate/Area] > 60 mL/Min [facility] Hematocrit Auto (Bld) [Volum e fraction]Ordered By: Rodolfo Harley on 08-12-2022 Hematocrit (Bld) [Volume fraction] 38.0 % 34.0-46.4 [facility] Hemoglobin [Mass/volume] in BloodOrdered By: Rodolfo Harley on 08-12-2022 Hemoglobin (Bld) [Mass/Vol] 12.5 g/dL 11.8-15.4 [facility] Laboratory - Hematology and Cell countsOrdered By: Rodolfo Harley on 08-12-2022 Nucleated RBC/100 WBC (Bld) [Ratio] 0.1 % 0-0.5 [facility] Leukocytes [#/volume] in Blo od by Automated countOrdered By: Rodolfo Harley on 08-12-2022 WBC (Bld) [#/Vol] 5.8 10*3/uL 4.5-11.0 [facility] Lymphocytes Auto (Bld) [#/Vo l]Ordered By: Rodolfo Harley on 08-12-2022 Lymphocytes (Bld) [#/Vol] 0.7 10*3/uL 1.00-4.8 [facility] Lymphocytes/100 WBC Auto (Bl d)Ordered By: Rodolfo Harley on 08-12-2022 Lymphocytes/100 WBC (Bld) 11.4 % . [facility] MCH Auto (RBC) [Entitic mass ]Ordered By: Rodolfo Harley on 08-12-2022 MCH (RBC) [Entitic mass] 28.1 pg 24.7-34.3 [facility] MCHC Auto (RBC) [Mass/Vol]Or dered By: Rodolfo Harley on 08-12-2022 MCHC (RBC) [Mass/Vol] 32.9 g/dL 32.0-35.0 [facility] MCV Auto (RBC) [Entitic vol] Ordered By: Rodolfo Harley on 08-12-2022 MCV (RBC) [Entitic vol] 85.4 fL 80-100 [facility] Monocytes Auto (Bld) [#/Vol] Ordered By: Rodolfo Harley on 08-12-2022 Monocytes (Bld) [#/Vol] 0.3 10*3/uL 0.0-0.8 [facility] Monocytes/100 WBC Auto (Bld) Ordered By: Rodolfo Harley on 08-12-2022 Monocytes/100 WBC (Bld) 4.8 % . [facility] Neutrophils Auto (Bld) [#/Vo l]Ordered By: Rodolfo Harley on 08-12-2022 Neutrophils (Bld) [#/Vol] 4.8 10*3/uL 1.8-7.7 [facility] Neutrophils/100 WBC Auto (Bl d)Ordered By: Rodolfo Harley on 08-12-2022 Neutrophils/100 WBC (Bld) 83.4 % . [facility] No Panel InformationOrdered By: Rodolfo Harley on 08-12-2022 Estimated GFR () > 60 mL/Min [facility] Comment on above: GFR estimated refere nce range: According to KDOQI guidelines, <60 ml/min/1.73m2 is sufficient to diagnose a patient with chronic kidney disease. Pharmacy Creatinine Clearance (Chem 59.45 [facility] Platelet mean volume Auto (B ld) [Entitic vol]Ordered By: Rodolfo Harley on 08-12-2022 Platelet mean volume (Bld) [Entitic vol] 7.9 fL 6.3-10.7 [facility] Platelets Auto (Bld) [#/Vol] Ordered By: Rodolfo Harley on 08-12-2022 Platelets (Bld) [#/Vol] 196 10*3/uL 150-450 [facility] RBC Auto (Bld) [#/Vol]Ordere d By: Rodolfo Harley on 08-12-2022 RBC (Bld) [#/Vol] 4.45 10*6/uL 3.60-5.00 [facility] Serum or plasma anion gap de terminationOrdered By: Rodolfo Harley on 08-12-2022 Anion gap [Moles/Vol] 7.5 mmol/L 6.0-15.0 [facility] Serum or plasma calcium dagoberto urement (mass/volume)Ordered By: Rodolfo Harley on 08-12-2022 Calcium [Mass/Vol] 8.7 mg/dL 8.2-10.2 [facility] Serum or plasma chloride anahy surement (moles/volume)Ordered By: Rodolfo Harley on 08-12-2022 Chloride [Moles/Vol] 108 mmol/L 95-114 [facility] Serum or plasma glucose dagoberto urement (mass/volume)Ordered By: Rodolfo Harley on 08-12-2022 Glucose [Mass/Vol] 133 mg/dL 70-100 [facility] Comment on above: ADA recommended refe rence rangeRandom Glucose Reference Range is dependent on time and content of last meal. Glucose of more than 200 mg/dL in a nonstressed, ambulatory subject supports the diagnosis of Diabetes Mellitus. Serum or plasma potassium me asurement (moles/volume)Ordered By: Rodolfo Harley on 08-12-2022 Potassium [Moles/Vol] 3.7 mmol/L 3.5-5.1 [facility] Serum or plasma sodium measu rement (moles/volume)Ordered By: Rodolfo Harley on 08-12-2022 Sodium [Moles/Vol] 139 mmol/L 136-146 [facility] Serum or plasma total carbon dioxide measurement (moles/volume)Ordered By: Rodolfo Harley on 08-12-2022 CO2 [Moles/Vol] 27.2 mmol/L 22.0-30.0 [facility] Serum or plasma urea nitroge n measurement (mass/volume)Ordered By: Rodolfo Harley on 08-12-2022 Urea nitrogen [Mass/Vol] 14 mg/dL 9-23 [facility] ABO and Rh group post transf usion reaction Nom (Bld)Ordered By: Rodolfo Harley on 08-10-2022 Microscopic observation Gram stain Nom (Unsp spec) [facility] AF[employer] cultureOrdered By: Sissy Harley on 08-10-2022 Mycobacterium sp identified Org specific cx Nom (Unsp spec) [facility] AF[employer] smearOrdered By: Rodolfo Harley on 08-10-2022 Microscopic observation Smear Nom (Unsp spec) [facility] Aerobic cultureOrdered By: Margie Harley on 08-10-2022 Bacteria identified Aer cx Nom (Unsp spec) No Growth 2 Days [facility] Anaerobic cultureOrdered By: Rodolfo Harlye on 08-10-2022 Bacteria identified Anaer cx Nom (Unsp spec) No Anaerobes Isolated 3 Days [facility] Arterial blood standard base excess determination by calculationOrdered By: Rodolfo Harley on 08-10-2022 Base excess standard Calc (BldA) [Moles/Vol] 5 mmol/L -2-3 [facility] Blood carbon dioxide, total measurement by calculation (moles/volume)Ordered By: Rodolfo Harley on 08-10-2022 CO2 Calc (Bld) [Moles/Vol] 30 mmol/L 23-[address] [facility] [address] biopsyOrdered By: Rodolfo Harley on 08-10-2022 Hematocrit (Bld) [Volume fraction] 40.0 % 38.0-51.0 [facility] Fungal cultureOrdered By: Rolanda Harley on 08-10-2022 Fungus identified Cx Nom (Unsp spec) [facility] Glucose Glucometer (BldC) [M ass/Vol]Ordered By: Rodolfo Harley on 08-10-2022 Glucose [Mass/Vol] 126 mg/dL 70-105 [facility] Gram stain for investigation of transfusion reactionOrdered By: Rodolfo Harley on 08-10-2022 Microscopic observation Gram stain Nom (Unsp spec) [facility] Hemoglobin Calc (Bld) [Mass/ Vol]Ordered By: Rodolfo Harley on 08-10-2022 Hemoglobin (Bld) [Mass/Vol] 13.6 g/dL 12.0-17.0 [facility] Monocyte %Ordered By: Jean Harley on 08-10-2022 Monocyte % 39.9 mm[Hg] 35-51 [facility] Monocyte % 45 mm[Hg] 80-105 [facility] No Panel InformationOrdered By: Rodolfo Harley on 08-10-2022 Chlamydia psittaci Antibodies <1:10 Neg:<1:10 [facility] Comment on above: This test was develo ped and its performance characteristicsdetermined by [employer]. It has not been cleared or approvedby the Food and Drug Administration. The FDA hasdetermined that such clearance or approval is notnecessary.Performed at: [address], [place], [place] [id number] Director: Shelly Vargas MD, Phone: [phone] Potassium (Bld) [Moles/Vol]O rdered By: Rodolfo Harley on 08-10-2022 Potassium [Moles/Vol] 3.8 mmol/L 3.5-4.9 [facility] Sodium (Bld) [Moles/Vol]Orde red By: Rodolfo Harley on 08-10-2022 Sodium [Moles/Vol] 141 mmol/L 138-146 [facility] Whole blood bicarbonate dagoberto urementOrdered By: Rodolfo Harley on 08-10-2022 HCO3 (Bld) [Moles/Vol] 29.1 mmol/L 22.0-28.0 [facility] Whole blood ionized calcium measurement (moles/volume)Ordered By: Rodolfo Harley on 08-10-2022 Calcium.ionized (Bld) [Moles/Vol] 1280 mmol/L 1.12-1.32 [facility] Whole blood oxygen saturatio n measurementOrdered By: Rodolfo Harley on 08-10-2022 Oxygen saturation in Blood 84 % 95-98 [facility] Comment on above: Reference ranges ref lect baseline specimens only Whole blood pHOrdered By: oRlanda Harley on 08-10-2022 pH (Bld) 7.470 Units 7.31-7.45 [facility] Urine culture routineOrdered By: Rodolfo Harley on 08-07-2022 Bacteria identified Cx Nom (U) 2 Days [facility] Activated partial thrombopla stin time (aPTT) in platelet poor plasma by coagulation aOrdered By: Rodolfo Harley on 08-05-2022 aPTT Coag (PPP) [Time] 35.9 s 25.1-36.5 [facility] Basophils Auto (Bld) [#/Vol] Ordered By: Rodolfo Harley on 08-05-2022 Basophils (Bld) [#/Vol] 0.0 10*3/uL 0.0-0.2 [facility] Basophils/100 WBC Auto (Bld) Ordered By: Rodolfo Harley on 08-05-2022 Basophils/100 WBC (Bld) 0.5 % . [facility] Body fluid albumin measureme nt (mass/volume)Ordered By: Rodolfo Harley on 08-05-2022 Albumin (Body fld) [Mass/Vol] 3.8 g/dL 3.2-5.5 [facility] COVID-19 Positive/NegativeOr dered By: Rodolfo Harley on 08-05-2022 SARS-CoV-2 (COVID-19) N gene PAVAN+probe Ql (Resp) Negative Negative [facility] Comment on above: Testing for SARS-CoV -2 by RT-PCRThis test was developed and its performance characteristics determined by [employer] ([employer]) and validated at the [facility]. This test has not been [...] on 08-05-2022 Creatinine [Mass/Vol] 0.97 mg/dL 0.44-1.03 [facility] Eosinophils Auto (Bld) [#/Vo l]Ordered By: Rodolfo Harley on 08-05-2022 Eosinophils (Bld) [#/Vol] 0.2 10*3/uL 0.0-0.45 [facility] Eosinophils/100 WBC Auto (Bl d)Ordered By: Rodolfo Harley on 08-05-2022 Eosinophils/100 WBC (Bld) 4.9 % . [facility] Erythrocyte distribution wid th Auto (RBC) [Ratio]Ordered By: Rodolfo Harley on 08-05-2022 Erythrocyte distribution width (RBC) [Ratio] 14.5 % 11.9-15.3 [facility] Estimated glomerular filtrat ion rate (GFR) non- AmericanOrdered By: Rodolfo Harely on 08-05-2022 GFR/1.73 sq M.predicted among non-blacks MDRD (S/P/Bld) [Vol rate/Area] 59 mL/Min [facility] FUNGAL CULTUREon 08-05-2022 Fungus (Mycology) Culture Final report Abnormal [facility] Comment on above: Performed By: #### C XFUN ####[facility] [address] [place] [address]DrChen Rogel Fungus Stain Final report Normal [facility] Comment on above: Performed By: #### C XFUN ####[facility] [address] [place], [place] [address]Dr. Shahbaz Rogel Result 1 Comment Abnormal [facility] Comment on above: Result Comment: MILADYS/ Calcofluor preparation: no fungus observed. Performed By: #### C XFUN ####[facility] [address] [place] [id number]. Shahbaz Rogel Result Comment: Aspe rgillus versicolor Result 2 Penicillium species Abnormal [facility] Comment on above: Performed By: #### C XFUN ####[facility] [address] [place], [place] [address]DrChen Rogel Globulin Calc (S) [Mass/Vol] Ordered By: Rodolfo Harley on 08-05-2022 Globulin (S) [Mass/Vol] 2.9 g/dL [facility] Hematocrit Auto (Bld) [Volum e fraction]Ordered By: Rodolfo Harley on 08-05-2022 Hematocrit (Bld) [Volume fraction] 43.3 % 34.0-46.4 [facility] Hemoglobin [Mass/volume] in BloodOrdered By: Rodolfo Harley on 08-05-2022 Hemoglobin (Bld) [Mass/Vol] 14.3 g/dL 11.8-15.4 [facility] - CoagulationOrde red By: Rodolfo Harley on 08-05-2022 PT Coag (PPP) [Time] 12.4 s 9.0-12.9 [facility] - Hematology and Cell countsOrdered By: Rodolfo Harley on 08-05-2022 Nucleated RBC/100 WBC (Bld) [Ratio] 0.0 % 0-0.5 [facility] Leukocytes [#/volume] in Blo od by Automated countOrdered By: Rodolfo Harley on 08-05-2022 WBC (Bld) [#/Vol] 3.4 10*3/uL 4.5-11.0 [facility] Lymphocytes Auto (Bld) [#/Vo l]Ordered By: Rodolfo Harley on 08-05-2022 Lymphocytes (Bld) [#/Vol] 0.9 10*3/uL 1.00-4.8 [facility] Lymphocytes/100 WBC Auto (Bl d)Ordered By: Rodolfo Harley on 08-05-2022 Lymphocytes/100 WBC (Bld) 27.2 % . [facility] MCH Auto (RBC) [Entitic mass ]Ordered By: Rodolfo Harley on 08-05-2022 MCH (RBC) [Entitic mass] 28.4 pg 24.7-34.3 [facility] MCHC Auto (RBC) [Mass/Vol]Or dered By: Rodolfo Harley on 08-05-2022 MCHC (RBC) [Mass/Vol] 33.1 g/dL 32.0-35.0 [facility] MCV Auto (RBC) [Entitic vol] Ordered By: Rodolfo Harley on 08-05-2022 MCV (RBC) [Entitic vol] 85.9 fL 80-100 [facility] Monocytes Auto (Bld) [#/Vol] Ordered By: Rodolfo Harley on 08-05-2022 Monocytes (Bld) [#/Vol] 0.3 10*3/uL 0.0-0.8 [facility] Monocytes/100 WBC Auto (Bld) Ordered By: Rodolfo Harley on 08-05-2022 Monocytes/100 WBC (Bld) 7.5 % . [facility] Neutrophils Auto (Bld) [#/Vo l]Ordered By: Rodolfo Harley on 08-05-2022 Neutrophils (Bld) [#/Vol] 2.0 10*3/uL 1.8-7.7 [facility] Neutrophils/100 WBC Auto (Bl d)Ordered By: Rodolfo Harley on 08-05-2022 Neutrophils/100 WBC (Bld) 59.9 % . [facility] No Panel InformationOrdered By: Rodolfo Harley on 08-05-2022 Estimated GFR () > 60 mL/Min [facility] Comment on above: GFR estimated refere nce range: According to KDOQI guidelines, <60 ml/min/1.73m2 is sufficient to diagnose a patient with chronic kidney disease. Pharmacy Creatinine Clearance (Chem N/A [facility] Platelet mean volume Auto (B ld) [Entitic vol]Ordered By: Rodolfo Harley on 08-05-2022 Platelet mean volume (Bld) [Entitic vol] 8.1 fL 6.3-10.7 [facility] Platelet poor plasma interna tional normalized ratio (INR) by coagulation assay (relatOrdered By: Rodolfo Harley on 08-05-2022 INR Coag (PPP) [Relative time] 1.1 {INR} [facility] Comment on above: INR Therapeutic [...] 08-05-2022 Platelets (Bld) [#/Vol] 243 10*3/uL 150-450 [facility] Protein [Mass/volume] in Ser um or PlasmaOrdered By: Rodolfo Harley on 08-05-2022 Protein [Mass/Vol] 6.7 g/dL 6.1-7.9 [facility] RBC Auto (Bld) [#/Vol]Ordere d By: Rodolfo Harley on 08-05-2022 RBC (Bld) [#/Vol] 5.04 10*6/uL 3.60-5.00 [facility] Serum or plasma alanine snyder otransferase measurement without P-5'-P (enzymatic activiOrdered By: Rodolfo Harley on 08-05-2022 ALT No additional P-5'-P [Catalytic activity/Vol] 14 U/L 10-60 [facility] Serum or plasma albumin/glob ulin mass ratioOrdered By: Rodolfo Harley on 08-05-2022 Albumin/Globulin [Mass ratio] 1.3 {ratio} [facility] Serum or plasma alkaline sruthi sphatase measurement (enzymatic activity/volume)Ordered By: Rodolfo Harley on 08-05-2022 ALP [Catalytic activity/Vol] 91 U/L 32-92 [facility] Serum or plasma anion gap de terminationOrdered By: Rodolfo Harley on 08-05-2022 Anion gap [Moles/Vol] 14.3 mmol/L 6.0-15.0 [facility] Serum or plasma aspartate am inotransferase measurement (enzymatic activity/volume)Ordered By: Rodolfo Harley on 08-05-2022 AST [Catalytic activity/Vol] 21 U/L 10-42 [facility] Serum or plasma calcium dagoberto urement (mass/volume)Ordered By: Rodolfo Harley on 08-05-2022 Calcium [Mass/Vol] 9.5 mg/dL 8.2-10.2 [facility] Serum or plasma chloride anahy surement (moles/volume)Ordered By: Rodolfo Harley on 08-05-2022 Chloride [Moles/Vol] 102 mmol/L 95-114 [facility] Serum or plasma glucose dagoberto urement (mass/volume)Ordered By: Rodolfo Harley on 08-05-2022 Glucose [Mass/Vol] 76 mg/dL 70-100 [facility] Comment on above: ADA recommended refe rence rangeRandom Glucose Reference Range is dependent on time and content of last meal. Glucose of more than 200 mg/dL in a nonstressed, ambulatory subject supports the diagnosis of Diabetes Mellitus. Serum or plasma potassium me asurement (moles/volume)Ordered By: Rodolfo Harley on 08-05-2022 Potassium [Moles/Vol] 3.8 mmol/L 3.5-5.1 [facility] Serum or plasma sodium measu rement (moles/volume)Ordered By: Rodolfo Harley on 08-05-2022 Sodium [Moles/Vol] 138 mmol/L 136-146 [facility] Serum or plasma total biliru bin measurement (mass/volume)Ordered By: Rodolfo Harley on 08-05-2022 Bilirubin [Mass/Vol] 0.7 mg/dL 0.3-1.2 [facility] Serum or plasma total carbon dioxide measurement (moles/volume)Ordered By: Rodolfo Harley on 08-05-2022 CO2 [Moles/Vol] 25.5 mmol/L 22.0-30.0 [facility] Serum or plasma urea nitroge n measurement (mass/volume)Ordered By: Rodolfo Harley on 08-05-2022 Urea nitrogen [Mass/Vol] 12 mg/dL 06-24 [facility] Urine culture routineOrdered By: Rodolfo Harley on 08-05-2022 Bacteria identified Cx Nom (U) 2 Days [facility] XR ANKLE LT MIN 3 Von 2021 XR ANKLE LT MIN 3 V Normal [facility] BNPon 07-06-2022 Natriuretic peptide B (Bld) [Mass/Vol] 843.0 pg/mL Normal <=900.0 [facility] Comment on above: Performed By: #### B PAIN MANAGEMENT PHYSICIAN, CRP, CMP ####[facility] [address]dc[address]oaokh[address] [place] [address]Dr. Shahbaz Rogel CBC W MANUAL DIFFon 07-06-20 22 ATYPICAL LYMPH # Normal [facility] Comment on above: Performed By: #### C CAIN ####[facility] Bzlpooqifp[address] [place] [id number]. Shahbaz Rogel ATYPICAL LYMPH % Normal [facility] Comment on above: Performed By: #### C CAIN ####[facility] Hxjwrkgzxb8032 [place] [id number]. Shahbaz Rogel BAND # 0.0 103/ul Normal 0.0-0.3 [facility] Comment on above: Performed By: #### C CAIN ####[facility] Irbqvnznib8[address] [place] [id number]. Shahbaz Rogel BAND % 0 % Normal 0-5 [facility] Comment on above: Performed By: #### C BCBRICE ####[facility] Qnpsokzejw3975 [place] [id number]. Shahbaz Rogel BASOM # 0.00 103/ul Normal 0.00-0.10 [facility] Comment on above: Performed By: #### C BCBRICE ####[facility] Xsrsfaiklq2[address] [place] [address]Dr. Yiajrrod Rogel BASOM % 0.0 % Critically low 0.2-2.0 [facility] Comment on above: Performed By: #### C CAIN ####[facility] Kfjwajbmxj[address] [place], [place] [address]Dr. Yijarrod Rogel BLAST # Normal [facility] Comment on above: Performed By: #### C CAIN ####[facility] Jmsnlkhvmw[address] [place], [place] [address]Dr. Yilan Rogel BLAST % Normal [facility] Comment on above: Performed By: #### C CAIN ####[facility] Jmihnddbgi[address] [place], [place] [address]Dr. Shahbaz Rogel CORRECTED WBC Normal 4.0-11.0 [facility] Comment on above: Performed By: #### C CAIN ####[facility] [address]ufkmvz[address] [place] [address]Dr. Yijarrod Rogel EOS # 0.00 103/ul Normal 0.00-0.70 [facility] Comment on above: Performed By: #### C BCBRICE ####[facility] Fwwqxlmkbx83[address] [place] [address]Dr. Shahbaz Rogel EOS% 0.0 % Critically low 0.9-7.0 [facility] Comment on above: Performed By: #### C BCBRICE ####[facility] Hqebevlolf[address] [place], [place] [address]Dr. Shahbaz Rogel HCT 40.3 % Normal 36.0-48.0 [facility] Comment on above: Performed By: #### Cheri BARLOW ####[facility] Tuvgstvhbz49[address] [place] [id number]. Shahbaz Rogel HGB 12.7 g/dl Normal 12.0-16.[address] [facility] Comment on above: Performed By: #### Cheri BARLOW ####[facility] Lgmxyfshda4199 [place] [id number]. Shahbaz Rogel LYMPHM # 0.41 103/ul Critically low 1.20-3.[address] [facility] Comment on above: Performed By: #### Cheri BARLOW ####[facility] Qwuonrcxik0641 [place] [id number]. Shahbaz Rogel LYMPHM% 7.0 % Critically low 20.5-60.[address] [facility] Comment on above: Performed By: #### Cheri BARLOW ####[facility] Rgewzlyzio3025 [place] [id number]. Shahbaz Rogel MCH 28.0 pg Normal 26.7-34.[address] [facility] Comment on above: Performed By: #### Cheri BARLOW ####[facility] Chsugegchm1582 [place] [id number]. Shahbaz Rogel MCHC 31.5 g/dl Normal 29.9-35.[address] [facility] Comment on above: Performed By: #### Cheri BARLOW ####[facility] Tixgumvqvv2688 [place] [id number]. Shahbaz Rogel MCV 89.0 fL Normal 81.0-99.0 [facility] Comment on above: Performed By: #### Cheri BARLOW ####[facility] Najwobolly4[address] [place] [id number]. Shahbaz Rogel METAMYELOCYTE # Normal [facility] Comment on above: Performed By: #### Cheri BARLOW ####[facility] Nzlryahfot6716 [place] [id number]. Shahbaz Rogel METAMYELOCYTE % Normal [facility] Comment on above: Performed By: #### Cheri BARLOW ####[facility] Xfmnvrugaa8407 [place] [id number]. Shahbaz Rogel MONOM# 0.00 103/ul Critically low 0.30-0.[address] [facility] Comment on above: Performed By: #### C CAIN ####[facility] Ceskbiibur[address] [place] [address]Dr. Shahbaz Rogel MONOM% 0.0 % Critically low 1.7-12.[address] [facility] Comment on above: Performed By: #### C CAIN ####[facility] Vjdqpoutzn5[address] [place] [address]Dr. Shahbaz Rogel MPV 9.8 fL Normal 9.5-13.[address] [facility] Comment on above: Performed By: #### C CAIN ####[facility] Zwyjpdyptg[address] [place], [place] [address]Dr. Shahbaz Rogel MYELOCYTE # Normal [facility] Comment on above: Performed By: #### C CAIN ####[facility] Fcrcotslvo[address] [place], [place] [address]Dr. Shahbaz Rogel MYELOCYTE % Normal [facility] Comment on above: Performed By: #### C CAIN ####[facility] Owxcnhcihb[address] [place], [place] [address]Dr. Shahbaz Rogel NRBC Normal [facility] Comment on above: Performed By: #### C CAIN ####[facility] Doqpqzkaqg[address] [place], [place] [address]Dr. Shahbaz Rogel PLT 187 103/ul Normal 150-450 [facility] Comment on above: Performed By: #### C CAIN ####[facility] Ngvxjdxmxt5744 [place] [phone]. Shahbaz Rogel RBC 4.53 106/ul Normal 4.20-5.40 [facility] Comment on above: Performed By: #### C CAIN ####[facility] Axugcnlcta4[address] [place], [place] [address]Dr. Shahbaz Rogel RDW 13.3 % Normal 11.0-15.0 [facility] Comment on above: Performed By: #### C CAIN ####[facility] Mrjotzdzar[address] [place], [place] [address]Dr. Shahbaz Rogel SEG # 5.49 103/ul Normal 1.40-6.50 [facility] Comment on above: Performed By: #### C CAIN ####[facility] Rvxpoyudob[address] [place] [address]Dr. Shahbaz Rogel SEG % 93.0 % Critically high 43.0-75.0 [facility] Comment on above: Performed By: #### C CAIN ####[facility] Lxaoibibzx[address] [place] [address]Dr. Shahbaz Rogel WBC 5.9 103/ul Normal 4.0-11.0 [facility] Comment on above: Performed By: #### C CAIN ####[facility] Cjxwvikjnr5[address] [place] [address]Dr. Shahbaz Rogel CRPon 07-06-2022 CRP [Mass/Vol] mg/L Normal <=1.0 [facility] Comment on above: Performed By: #### B PAIN MANAGEMENT PHYSICIAN, CRP, CMP ####[facility] Rqkxskjsrv4[address] [place], [place] [address]Dr. Lilajarrod Rogel PROF 14(COMP METB)on 022 Albumin [Mass/Vol] 3.4 g/dL Normal 3.4-5.0 [facility] Comment on above: Performed By: #### B PAIN MANAGEMENT PHYSICIAN, CRP, CMP ####[facility] Bwhnieupzx9[address] [place] [address]Dr. Lilajarrod Rogel Albumin/Globulin [Mass ratio] 1.0 {ratio} Normal [facility] Comment on above: Performed By: #### B PAIN MANAGEMENT PHYSICIAN, CRP, CMP ####[facility] Gbvzenqisk2553 [place] [address]Dr. Lilajarrod Rogel ALP [Catalytic activity/Vol] 92 U/L Normal 46-116 [facility] Comment on above: Performed By: #### B PAIN MANAGEMENT PHYSICIAN, CRP, CMP ####[facility] Odggrzbznk1957 [place] [address]Dr. Shahbaz Rogel ALT [Catalytic activity/Vol] 21 U/L Normal 14-59 [facility] Comment on above: Performed By: #### B PAIN MANAGEMENT PHYSICIAN, CRP, CMP ####[facility] Qtmbmsjlow5320 [place] [phone]. Shahbaz Rogel Anion gap [Moles/Vol] 13.4 mmol/L Normal [facility] Comment on above: Performed By: #### B PAIN MANAGEMENT PHYSICIAN, CRP, CMP ####[facility] Qvrvvwknbm0876 [place] [address]Dr. Shahbaz Rogel AST [Catalytic activity/Vol] 16 U/L Normal 15-37 [facility] Comment on above: Performed By: #### B PAIN MANAGEMENT PHYSICIAN, CRP, CMP ####[facility] Yiperfbzga4716 [place] [address]Dr. Shahbaz Rogel Bilirubin [Mass/Vol] 0.2 mg/dL Normal 0.2-1.0 [facility] Comment on above: Performed By: #### B PAIN MANAGEMENT PHYSICIAN, CRP, CMP ####[facility] Zbjwihhzez[address] [place], [place] [address]Dr. Shahbaz Rogel Calcium [Mass/Vol] 9.3 mg/dL Normal 8.5-10.1 [facility] Comment on above: Performed By: #### B PAIN MANAGEMENT PHYSICIAN, CRP, CMP ####[facility] Syodzuqblk60[address] [place], [place] [address]Dr. Shahbaz Rogel Chloride [Moles/Vol] 105 mmol/L Normal 98-107 [facility] Comment on above: Performed By: #### B PAIN MANAGEMENT PHYSICIAN, CRP, CMP ####[facility] Rujvnfjcay[address] [place], [place] [address]Dr. Shahbaz Rogel CO2 [Moles/Vol] 23.2 mmol/L Normal 21.0-32.0 [facility] Comment on above: Performed By: #### B PAIN MANAGEMENT PHYSICIAN, CRP, CMP ####[facility] Kooyorcbdr8054 [place] [address]Dr. Shahbaz Rogel Creatinine [Mass/Vol] 1.23 mg/dL Critically high 0.55-1.[address] [facility] Comment on above: Performed By: #### B PAIN MANAGEMENT PHYSICIAN, CRP, CMP ####[facility] Azlvrneirn8[address] [place] [address]Dr. Shahbaz Rogel EGFR-AF GERMAN 55 mL/min/1.73m2 Critically low >=60 [facility] Comment on above: Performed By: #### B PAIN MANAGEMENT PHYSICIAN, CRP, CMP ####[facility] Hoesvypxgx0[address] [place] [address]Dr. Shahbaz Rogel EGFR-NON AF GERMAN 45 mL/min/1.73m2 Critically low >=[address] [facility] Comment on above: Performed By: #### B PAIN MANAGEMENT PHYSICIAN, CRP, CMP ####[facility] Jayemlffgr[address] [place], [place] [address]Dr. Shahbaz Rogel Globulin (S) [Mass/Vol] 3.3 g/dL Normal [facility] Comment on above: Performed By: #### B PAIN MANAGEMENT PHYSICIAN, CRP, CMP ####[facility] Yaoietipuy[address] [place], [place] [address]Dr. Shahbaz Rogel Glucose [Mass/Vol] 171 mg/dL Critically high 74-106 [facility] Comment on above: Performed By: #### B PAIN MANAGEMENT PHYSICIAN, CRP, CMP ####[facility] Zchlhozloa[address] [place], [place] [address]Dr. Shahbaz Rogel Potassium [Moles/Vol] 3.6 mmol/L Normal 3.5-5.1 [facility] Comment on above: Performed By: #### B PAIN MANAGEMENT PHYSICIAN, CRP, CMP ####[facility] Mbrpsymnhu[address] [place], [place] [address]Dr. Shahbaz Rogel Protein [Mass/Vol] 6.7 g/dL Normal 6.4-8.2 [facility] Comment on above: Performed By: #### B PAIN MANAGEMENT PHYSICIAN, CRP, CMP ####[facility] Uflfdkfgun92[address] [place], [place] [address]Dr. Shahbaz Rogel Sodium [Moles/Vol] 138 mmol/L Normal 136-145 [facility] Comment on above: Performed By: #### B PAIN MANAGEMENT PHYSICIAN, CRP, CMP ####[facility] Euihynrxgu76[address] [place], [place] [address]Dr. Shahbaz Rogel Urea nitrogen [Mass/Vol] 21.0 mg/dL Critically high 7.0-18.[address] [facility] Comment on above: Performed By: #### B PAIN MANAGEMENT PHYSICIAN, CRP, CMP ####[facility] Qfhqoqkthm7[address] [place], [place] [address]Dr. Shahbaz Rogel Urea nitrogen/Creatinine [Mass ratio] 17.1 mg/mg Normal [facility] Comment on above: Performed By: #### B PAIN MANAGEMENT PHYSICIAN, CRP, CMP ####[facility] Vdbajsswck[address] [place], [place] [address]Dr. Shahbaz Rogel XR CHEST 2 Von 07-06-2022 XR CHEST 2 V Normal [facility] BNPon 07-05-2022 Natriuretic peptide B (Bld) [Mass/Vol] 83.0 pg/mL Normal <=900.0 [facility] Comment on above: Performed By: #### C RP, CMP, BNP ####[facility] Dwtqbcpfzu[address] [place], [place] [address]Dr. Shahbaz Rogel CBC AUTO DIFFon 07-05-2022 BASO # 0.0 103/ul Normal 0.0-0.1 [facility] Comment on above: Performed By: #### C BC ####[facility] Bpfqdvitnz[address] [place], [place] [address]Dr. Shahbaz Rogel Basophils/100 WBC (Bld) 0.4 % Normal 0.2-2.0 [facility] Comment on above: Performed By: #### C BC ####[facility] Hbvujtsczf[address] [place], [place] [address]Dr. Shahbaz Rogel EO # 0.1 103/ul Normal 0.0-0.7 [facility] Comment on above: Performed By: #### C BC ####[facility] Qerljvtbst75[address] [place], [place] [address]Dr. Shahbaz Rogel Eosinophils/100 WBC (Bld) 2.9 % Normal 0.9-7.0 [facility] Comment on above: Performed By: #### C BC ####[facility] Fqisolyogt55[address] [place], [place] [address]Dr. Shahbaz Rogel Erythrocyte distribution width (RBC) [Ratio] 13.4 % Normal 11.0-15.0 [facility] Comment on above: Performed By: #### C BC ####[facility] Cayvepiipf[address] [place], [place] [address]Dr. Shahbaz Rogel Hematocrit (Bld) [Volume fraction] 41.7 % Normal 36.0-48.[address] [facility] Comment on above: Performed By: #### C BC ####[facility] Sjydqkpcvd25[address] [place] [address]Dr. Shahbaz Rogel Hemoglobin (Bld) [Mass/Vol] 12.9 g/dL Normal 12.0-16.0 [facility] Comment on above: Performed By: #### C BC ####[facility] Kjizkiyxjp12[address] [place], [place] [address]Dr. Shahbaz Rogel IG # 0.00 10e3/ul Normal 0.00-0.[address] [facility] Comment on above: Performed By: #### C BC ####[facility] Nvteoksvhk[address] [place], [place] [address]Dr. Shahbaz Rogel IG % 0.0 % Normal 0.0-0.[address] [facility] Comment on above: Performed By: #### C BC ####[facility] Nhyokviodb[address] [place], [place] [address]Dr. Shahbaz Rogel LYMPH # 1.5 103/ul Normal 1.2-3.8 [facility] Comment on above: Performed By: #### C BC ####[facility] Zjmdpfzfpd[address] [place], [place] [address]Dr. Shahbaz Rogel Lymphocytes/100 WBC (Bld) 32.9 % Normal 20.5-60.[address] [facility] Comment on above: Performed By: #### C BC ####[facility] Mxgxuvqtso[address] [place], [place] [address]Dr. Shahbaz Rogel MANUAL DIFF REQ NO Normal [facility] Comment on above: Performed By: #### C BC ####[facility] Mtvaotuagb[address] [place], [place] [address]Dr. Shahbaz Rogel MCH (RBC) [Entitic mass] 28.0 pg Normal 26.7-34.0 [facility] Comment on above: Performed By: #### C BC ####[facility] Hoivfqyfli[address] [place], [place] [address]Dr. Shahbaz Rogel MCHC (RBC) [Mass/Vol] 30.9 g/dL Normal 29.9-35.2 [facility] Comment on above: Performed By: #### C BC ####[facility] Ndxkfdzqod27[address] [place] [address]DrChen Rogel MCV (RBC) [Entitic vol] 90.5 fL Normal 81.0-99.0 [facility] Comment on above: Performed By: #### C BC ####[facility] Zagrasnjrn[address] [place], [place] [address]DrChen Rogel MONO # 0.4 103/ul Normal 0.3-0.8 [facility] Comment on above: Performed By: #### C BC ####[facility] Gcywzzmyef[address] [place], [place] [address]DrChen Rogel Monocytes/100 WBC (Bld) 8.0 % Normal 1.7-12.0 [facility] Comment on above: Performed By: #### C BC ####[facility] Mhphcssxph[address] [place], [place] [address]DrChen Rogel NEUT # 2.5 103/ul Normal 1.4-6.5 [facility] Comment on above: Performed By: #### C BC ####[facility] Giljasnewg[address] [place], [place] [address]DrChen Rogel Neutrophils/100 WBC (Bld) 55.8 % Normal 43.0-75.0 [facility] Comment on above: Performed By: #### C BC ####[facility] Exoszhkxkt[address] [place], [place] [address]DrChen Rogel Platelet mean volume (Bld) [Entitic vol] 9.7 fL Normal 9.5-13.5 [facility] Comment on above: Performed By: #### C BC ####[facility] Hjcshdmmii[address] [place], [place] [address]DrChen Rogel PLT 158 103/ul Normal 150-450 [facility] Comment on above: Performed By: #### C BC ####[facility] Dbeauevnil[address] [place], [place] [address]Dr. Shahbaz Rogel RBC 4.61 106/ul Normal 4.20-5.[address] [facility] Comment on above: Performed By: #### C BC ####[facility] Rdvcibjgsu1201 [place] [address]Dr. Shahbaz Rogel WBC 4.5 103/ul Normal 4.0-11.[address] [facility] Comment on above: Performed By: #### C BC ####[facility] Gxzwnzkihb9105 [place] [address]Dr. Shahbaz Rogel CRPon 07-05-2022 CRP [Mass/Vol] mg/L Normal <=1.[address] [facility] Comment on above: Performed By: #### C RP, CMP, BNP ####[facility] Awmmdduqin[address] [place] [address]Dr. Shahbaz Rogel ECHO LIMITED STUDYon 022 ECHO LIMITED STUDY Normal [facility] PROF 14(COMP METB)on 022 Albumin [Mass/Vol] 3.2 g/dL Critically low 3.4-5.0 [facility] Comment on above: Performed By: #### C RP, CMP, BNP ####[facility] Zucqgwxtuz25[address] [place] [address]Dr. Shahbaz Rogel Albumin/Globulin [Mass ratio] 1.0 {ratio} Normal [facility] Comment on above: Performed By: #### C RP, CMP, BNP ####[facility] Wqbifyfune48[address] [place] [address]Dr. Shahbaz Rogel ALP [Catalytic activity/Vol] 88 U/L Normal 46-[address] [facility] Comment on above: Performed By: #### C RP, CMP, BNP ####[facility] Flpblhmijf34[address] [place] [address]Dr. Shahbaz Rogel ALT [Catalytic activity/Vol] 17 U/L Normal 14-[address] [facility] Comment on above: Performed By: #### C RP, CMP, BNP ####[facility] Kgrjtjkhdh8[address] [place] [address]Dr. Shahbaz Rogel Anion gap [Moles/Vol] 12.5 mmol/L Normal [facility] Comment on above: Performed By: #### C RP, CMP, BNP ####[facility] Vwmwgywsgs2704 [place] [address]Dr. Shahbaz Rogel AST [Catalytic activity/Vol] 18 U/L Normal 15-37 [facility] Comment on above: Performed By: #### C RP, CMP, BNP ####[facility] Asczqogvai23[address] [place] [address]Dr. Shahbaz Rogel Bilirubin [Mass/Vol] 0.3 mg/dL Normal 0.2-1.0 [facility] Comment on above: Performed By: #### C RP, CMP, BNP ####[facility] Uavpxnchvw16[address] [place] [address]Dr. Shahbaz Rogel Calcium [Mass/Vol] 8.9 mg/dL Normal 8.5-10.1 [facility] Comment on above: Performed By: #### C RP, CMP, BNP ####[facility] Gcirneshaw[address] [place], [place] [address]Dr. Shahbaz Rogel Chloride [Moles/Vol] 103 mmol/L Normal 98-107 [facility] Comment on above: Performed By: #### C RP, CMP, BNP ####[facility] Jlqoaqvpcj[address] [place], [place] [address]Dr. Shahbaz Rogel CO2 [Moles/Vol] 28.1 mmol/L Normal 21.0-32.0 [facility] Comment on above: Performed By: #### C RP, CMP, BNP ####[facility] Qhhmczzvcl[address] [place], [place] [address]Dr. Shahbaz Rogel Creatinine [Mass/Vol] 1.24 mg/dL Critically high 0.55-1.02 [facility] Comment on above: Performed By: #### C RP, CMP, BNP ####[facility] Ezmwogifmt58[address] [place] [address]Dr. Shahbaz Rogel EGFR-AF GERMAN 54 mL/min/1.73m2 Critically low >=60 [facility] Comment on above: Performed By: #### C RP, CMP, BNP ####[facility] Ouhcwebcpb[address] [place], [place] [address]Dr. Shahbaz Rogel EGFR-NON AF GERMAN 45 mL/min/1.73m2 Critically low >=[address] [facility] Comment on above: Performed By: #### C RP, CMP, BNP ####[facility] Gwcpkujajo13[address] [place] [address]Dr. Shahbaz Rogel Globulin (S) [Mass/Vol] 3.1 g/dL Normal [facility] Comment on above: Performed By: #### C RP, CMP, BNP ####[facility] Omgzqmyrqp0421 [place] [address]Dr. Shahbaz Rogel Glucose [Mass/Vol] 115 mg/dL Critically high 74-106 T [facility] Comment on above: Performed By: #### C RP, CMP, BNP ####[facility] Yphoqfvgoy6[address] [place] [address]Dr. Shahbaz Rogel Potassium [Moles/Vol] 3.6 mmol/L Normal 3.5-5.[address] [facility] Comment on above: Performed By: #### C RP, CMP, BNP ####[facility] Iaxevbqeac5346 [place] [address]Dr. Shahbaz Rogel Protein [Mass/Vol] 6.3 g/dL Critically low 6.4-8.2 [facility] Comment on above: Performed By: #### C RP, CMP, BNP ####[facility] Gnymbflnhl9408 [place] [address]Dr. Shahbaz Rogel Sodium [Moles/Vol] 140 mmol/L Normal 136-[address] [facility] Comment on above: Performed By: #### C RP, CMP, BNP ####[facility] Bdcxgcgqkp9622 [place] [address]Dr. Shahbaz Rogel Urea nitrogen [Mass/Vol] 18.0 mg/dL Normal 7.0-18.[address] [facility] Comment on above: Performed By: #### C RP, CMP, BNP ####[facility] Fpmmhvxnvt4[address] [place] [address]Dr. Shahbaz Rogel Urea nitrogen/Creatinine [Mass ratio] 14.5 mg/mg [facility] [facility] Comment on above: Performed By: #### C RP, CMP, BNP ####[facility] [address]awbe[address]xv[address] [place] [phone]. Shahbaz Rogel T3, TOTAL (TRIIODOTHYRONINE) on 07-05-2022 T3, TOTAL 95 ng/dL Normal 71-[address] [facility] Comment on above: Performed By: #### T 3TOTAL ####[facility] [address]qgpfptadf[address] [place], [place] [address]Dr. Shahbaz Rogel CARDIAC ROSALINA 3-6on 2 CK [Catalytic activity/Vol] 78 U/L Normal 26-192 [facility] Comment on above: Performed By: #### C MREP ####[facility] Njnhifzglr[address] [place], [place] [address]Dr. Shahbaz Rogel CK.MB [Mass/Vol] 1.44 ng/mL Normal <=3.60 [facility] Comment on above: Performed By: #### C MREP ####[facility] Xrbtijbtze5[address] [place], [place] [address]Dr. Shahbaz Rogel HSTROP 9.0 pg/mL Normal 4.0-51.3 [facility] Comment on above: Result Comment: CUT- OFF POINTS HAVE BEEN ESTABLISHED BASED ON THE FOURTH UNIVERSAL DEFINITIONS OF MYOCARDIALINFARCTION. THE UPPER REFERENCE LIMIT (URL) OF TROPONIN, DEFINED THE 99TH PERCENTILE OFcTnI DISTRIBUTION IN A REFERENCE POPULATION, HAS BEEN CONFIRMED THE DECISION THRESHOLDFOR NE DIAGNOSIS. Performed By: #### C MREP ####[facility] Xfbnbeuuxi[address] [place], [place] [address]Dr. Shahbaz Rogel CK [Catalytic activity/Vol] 88 U/L Normal 26-192 [facility] Comment on above: Performed By: #### C MREP ####[facility] Ybvvlwviyk[address] [place] [id number]. Shahbaz Rogel CK.MB [Mass/Vol] 1.38 ng/mL Normal <=3.60 [facility] Comment on above: Performed By: #### C MREP ####[facility] [address]lrshy[address] [place] [address]Dr. Shahbaz Rogel HSTROP 7.0 pg/mL Normal 4.0-51.3 [facility] Comment on above: Result Comment: CUT- OFF POINTS HAVE BEEN ESTABLISHED BASED ON THE FOURTH UNIVERSAL DEFINITIONS OF MYOCARDIALINFARCTION. THE UPPER REFERENCE LIMIT (URL) OF TROPONIN, DEFINED THE 99TH PERCENTILE OFcTnI DISTRIBUTION IN A REFERENCE POPULATION, HAS BEEN CONFIRMED THE DECISION THRESHOLDFOR NE DIAGNOSIS. Performed By: #### C MREP ####[facility] [address]nejyc[address] [place] [address]Dr. Shahbaz Rogel CARDIAC ROSALINA ADMITon 022 CK [Catalytic activity/Vol] 87 U/L Normal 26-192 [facility] Comment on above: Performed By: #### C JACKSON, CINDY ####[facility] Ixwzuqqund06[address] [place], [place] [address]Dr. Shahbaz Rogel CK.MB [Mass/Vol] 1.80 ng/mL Normal <=3.60 [facility] Comment on above: Performed By: #### C JACKSON, EARLDM ####[facility] Owlggjnllx1968[address] [place], [place] [address]Dr. Shahbaz Rogel HSTROP 7.6 pg/mL Normal 4.0-51.3 [facility] Comment on above: Result Comment: CUT- OFF POINTS HAVE BEEN ESTABLISHED BASED ON THE FOURTH UNIVERSAL DEFINITIONS OF MYOCARDIALINFARCTION. THE UPPER REFERENCE LIMIT (URL) OF TROPONIN, DEFINED THE 99TH PERCENTILE OFcTnI DISTRIBUTION IN A REFERENCE POPULATION, HAS BEEN CONFIRMED THE DECISION THRESHOLDFOR NE DIAGNOSIS. Performed By: #### C JACKSON, EARLDM ####[facility] Ghuyfmfvzd5[address] [place], [place] [address]Dr. Shahbaz Rogel LEN 67 ng/mL Normal 9-82 [facility] Comment on above: Performed By: #### C JACKSON, EARLDM ####[facility] E[address]oqwvrc[address] [place] [address]Dr. Shahbaz Rogel CBC AUTO DIFFon 07-04-2022 BASO # 0.0 103/ul Normal 0.0-0.1 [facility] Comment on above: Performed By: #### C BC ####[facility] Gytisqkiia[address] [place] [address]Dr. Shahbaz Rogel Basophils/100 WBC (Bld) 0.7 % Normal 0.2-2.0 [facility] Comment on above: Performed By: #### C BC ####[facility] Wzolqvakfk[address] [place], [place] [id number]. Shahbaz Rogel EO # 0.1 103/ul Normal 0.0-0.7 [facility] Comment on above: Performed By: #### C BC ####[facility] Wlstkicjgd815[address] [place], [place] [address]Dr. Shahbaz Rogel Eosinophils/100 WBC (Bld) 3.4 % Normal 0.9-7.0 [facility] Comment on above: Performed By: #### C BC ####[facility] Sdfgdxgrpz039[address] [place], [place] [address]Dr. Shahbaz Rogel Erythrocyte distribution width (RBC) [Ratio] 13.3 % Normal 11.0-15.0 [facility] Comment on above: Performed By: #### C BC ####[facility] Fuuqxmrnzh67[address] [place], [place] [address]Dr. Shahbaz Rogel Hematocrit (Bld) [Volume fraction] 42.1 % Normal 36.0-48.0 [facility] Comment on above: Performed By: #### C BC ####[facility] Vdfrdtqeok025[address] [place], [place] [address]Dr. Shahbaz Rogel Hemoglobin (Bld) [Mass/Vol] 13.3 g/dL Normal 12.0-16.0 [facility] Comment on above: Performed By: #### C BC ####[facility] Qtbrgdfftp779168 [address] [place], [place] [address]Dr. Shahbaz Rogel IG # 0.01 10e3/ul Normal 0.00-0.03 [facility] Comment on above: Performed By: #### C BC ####[facility] Ffgkyedczp0965[address] [place], [place] [address]Dr. Shahbaz Rogel IG % 0.3 % Normal 0.0-0.5 [facility] Comment on above: Performed By: #### C BC ####[facility] Siufyckstq4354[address] [place], [place] [address]Dr. Shahbaz Rogel LYMPH # 1.0 103/ul Critically low 1.2-3.8 [facility] Comment on above: Performed By: #### C BC ####[facility] Oeqwruwrnm6[address] [place] [address]Dr. Shahbaz Rogel Lymphocytes/100 WBC (Bld) 35.6 % Normal 20.5-60.0 [facility] Comment on above: Performed By: #### C BC ####[facility] Sqaqyydkjq9[address] [place] [address]DrChen Rogel MANUAL DIFF REQ NO Normal [facility] Comment on above: Performed By: #### C BC ####[facility] Xgbowrmhwo64[address] [place] [address]Dr. Shahbaz Rogel MCH (RBC) [Entitic mass] 27.9 pg Normal 26.7-34.0 [facility] Comment on above: Performed By: #### C BC ####[facility] Zserbzpbrl0817[address] [place], [place] [address]Dr. Shahbaz Rogel MCHC (RBC) [Mass/Vol] 31.6 g/dL Normal 29.9-35.2 [facility] Comment on above: Performed By: #### C BC ####[facility] Wqalnawdmf28[address] [place], [place] [address]DrChen Rogel MCV (RBC) [Entitic vol] 88.3 fL Normal 81.0-99.0 [facility] Comment on above: Performed By: #### C BC ####[facility] Lzhuedkyxv5[address] [place], [place] [address]DrChen Rogel MONO # 0.2 103/ul Critically low 0.3-0.8 [facility] Comment on above: Performed By: #### C BC ####[facility] Jirsnkzxvv839[address] [place], [place] [address]DrChen Rogel Monocytes/100 WBC (Bld) 7.9 % Normal 1.7-12.0 [facility] Comment on above: Performed By: #### C BC ####[facility] Vrpqztqhut3930[address] [place], [place] [address]DrChen Rogel NEUT # 1.5 103/ul Normal 1.4-6.5 [facility] Comment on above: Performed By: #### C BC ####[facility] Ganygkmnvq67[address] [place] [address]DrChen Shahbaz Rogel Neutrophils/100 WBC (Bld) 52.1 % Normal 43.0-75.0 [facility] Comment on above: Performed By: #### C BC ####[facility] Hgtjifpxpf4406 [place] [address]DrChen Shahbaz Rogel Platelet mean volume (Bld) [Entitic vol] 9.5 fL Normal 9.5-13.5 [facility] Comment on above: Performed By: #### C BC ####[facility] Lqsbkufzlw4514[address] [place], [place] [address]Dr. Shabhaz Rogel PLT 172 103/ul Normal 150-450 [facility] Comment on above: Performed By: #### C BC ####[facility] Fbvloatamk1408[address] [place], [place] [address]Dr. Shahbaz Rogel RBC 4.77 106/ul Normal 4.20-5.40 [facility] Comment on above: Performed By: #### C BC ####[facility] Aabzfntdws4256[address] [place], [place] [address]DrChen Shahbaz Rogel WBC 2.9 103/ul Critically low 4.0-11.0 [facility] Comment on above: Performed By: #### C BC ####[facility] Praelpsaku42[address] [place], [place] [address]DrChen Shahbaz Juan F CELL COUNT BODY FLUIDon 10-0 BASOS Normal [facility] Comment on above: Performed By: #### B FCC ####[facility] Ezkwgtpvkw65[address] [place], [place] [address]Dr. Shahbaz Rogel Eosinophils/100 WBC (Bld) 4 % Normal [facility] Comment on above: Performed By: #### B FCC ####[facility] Sjpyafkzmt7334[address] [place], [place] [address]Dr. Shahbaz Rogel Lymphocytes/100 WBC (Bld) 12 % Normal [facility] Comment on above: Performed By: #### B FCC ####[facility] Gnqxdrzlmf[address] [place] [id number]. Shahbaz Rogel Monocytes/100 WBC (Bld) 4 % Normal [facility] Comment on above: Performed By: #### B FCC ####[facility] Pogwwtaydu[address] [place] [id number]. Shahbaz Rogel RBC 67 cubic mm Normal [facility] Comment on above: Performed By: #### B FCC ####[facility] Fprbskvhbf[address] [place], [place] [address]Dr. Shahbaz Rogel SEGS 80 % Normal [facility] Comment on above: Performed By: #### B FCC ####[facility] Kmqljpodkb5094[address] [place], [place] [address]Dr. Shahbaz Rogel WBC BODY FLUID 223 cubic mm Normal [facility] Comment on above: Performed By: #### B FCC ####[facility] Bpjbzqtdkw418[address] [place], [place] [address]Dr. Shahbaz Rogel CULTURE OTHERon 07-04-2022 CULTURE OTHER Culture Observations : NO GROWTH AT 48 HOURS. Normal [facility] Comment on above: Performed By: #### O THCX ####[facility] Pwxtcouufe8527[address] [place], [place] [address]Dr. Shahbaz Rogel CYTOLOGYon 07-04-2022 SENT TO REF LAB 07/04/[address] [facility] Comment on above: Performed By: #### C YTO ####[facility] Xifqiamuou25[address] [place], [place] [address]Dr. Shahbaz Rogel Covid-19 PCR (CVDTB)on SARS-CoV-2 (COVID-19) [...] for this test is supported by the [employer] of Health and Human Service's declaration that [...] Performed By: #### C VDTBH ####[facility] Btfpuvbyfa18[address] [place], [place] [address]Dr. Shahbaz Rogel GRAM STAINon 07-04-2022 COMMENTS NO ORGANISMS OBSERVED Normal [facility] Comment on above: Performed By: #### G STAIN ####[facility] Styhewhvkf8309[address] [place], [place] [address]Dr. Shahbaz Rogel DIPHTHEROIDS Normal [facility] Comment on above: Performed By: #### G STAIN ####[facility] Nyckqxgogt524[address] [place], [place] [address]Dr. Shahbaz Rogel EPITHELIALS Normal [facility] Comment on above: Performed By: #### G STAIN ####[facility] Tnzmezeeoe44[address] [place], [place] [address]Dr. Shahbaz Rogel FUNGAL ELEMENTS Normal [facility] Comment on above: Performed By: #### G STAIN ####[facility] Wvskfnheuu[address] [place], [place] [address]Dr. Shahbaz Rogel GRAM NEG BACILLI Normal [facility] Comment on above: Performed By: #### G STAIN ####[facility] Kvwskgsusu25[address] [place], [place] [address]Dr. Shahbaz Rogel GRAM NEG DIPPLOCOCCI Normal [facility] Comment on above: Performed By: #### G STAIN ####[facility] Ckfvpnovwe59[address] [place], [place] [address]Dr. Shahbaz Rogel GRAM POS BACILLI Normal [facility] Comment on above: Performed By: #### G STAIN ####[facility] Dzewvllzyo4[address] [place], [place] [address]Dr. Shahbaz Rogel GRAM POSITIVE COCCI Normal [facility] Comment on above: Performed By: #### G STAIN ####[facility] Iimwogykif[address] [place] [address]Dr. Shahbaz Rogel GRAM STAIN SOURCE Rt Lower Lobe Bronch ial Washing Normal [facility] Comment on above: Performed By: #### G STAIN ####[facility] Lacqvcfkye2[address] [place] [id number]. Shahbaz Rogel GS_DIPTH Normal [facility] Comment on above: Performed By: #### G STAIN ####[facility] Bgeatbhkln25[address] [place] [phone]. Shahbaz Rogel WBC RARE Normal [facility] Comment on above: Performed By: #### G STAIN ####[facility] Vyswdtxbqp18[address] [place] [address]Dr. Shahbaz Rogel PROF 14(COMP METB)on 022 Albumin [Mass/Vol] 3.6 g/dL Normal 3.4-5.[address] [facility] Comment on above: Performed By: #### C CINDY PAZ ####[facility] Adetvpsdap99[address] [place] [address]Dr. Shahbaz Rogel Albumin/Globulin [Mass ratio] 1.1 {ratio} Normal [facility] Comment on above: Performed By: #### C CINDY PAZ ####[facility] Naimxgbbaq43[address] [place] [address]Dr. Shahbaz Rogel ALP [Catalytic activity/Vol] 102 U/L Normal 46-116 [facility] Comment on above: Performed By: #### C JACKSON, CMAROXANNA ####[facility] Lyxhavojyl2938 [place] [phone]. Shahbaz Rogel ALT [Catalytic activity/Vol] 19 U/L Normal 14-59 [facility] Comment on above: Performed By: #### C JACKSON, CMADM ####[facility] Ihoggglnrd6608 [place] [address]Dr. Shahbaz Rogel Anion gap [Moles/Vol] 9.5 mmol/L Normal [facility] Comment on above: Performed By: #### C JACKSON, CMADM ####[facility] Iofenjgira9089 [place] [id number]. Shahbaz Rogel AST [Catalytic activity/Vol] 19 U/L Normal 15-37 [facility] Comment on above: Performed By: #### C MP, CMADM ####[facility] Mmvrryahge5445 [place] [phone]. Shahbaz Rogel Bilirubin [Mass/Vol] 0.3 mg/dL Normal 0.2-1.0 [facility] Comment on above: Performed By: #### C JACKSON, CMADM ####[facility] Pnwkuviboj70[address] [place] [address]Dr. Shahbaz Rogel Calcium [Mass/Vol] 8.8 mg/dL Normal 8.5-10.1 [facility] Comment on above: Performed By: #### C JACKSON, CMADM ####[facility] Btcniuogcj24[address] [place], [place] [address]Dr. Shahbaz Rogel Chloride [Moles/Vol] 107 mmol/L Normal 98-107 [facility] Comment on above: Performed By: #### C JACKSON, CMADM ####[facility] Dceroeglrd7325 [place] [address]Dr. Shahbaz Rogel CO2 [Moles/Vol] 29.5 mmol/L Normal 21.0-32.0 [facility] Comment on above: Performed By: #### C JACKSON, CMADM ####[facility] Mncdbzccfr3795 [place] [address]Dr. Shahbaz Rogel Creatinine [Mass/Vol] 0.97 mg/dL Normal 0.55-1.02 [facility] Comment on above: Performed By: #### C JACKSON, CMADM ####[facility] Ffbvvsxtkx9898 [place] [phone]. Shahbaz Rogel EGFR-AF GERMAN >60 Normal >=60 [facility] Comment on above: Performed By: #### C JACKSON, CMADM ####[facility] Ofnmlrnjqp89[address] [place] [address]Dr. Shahbaz Rogel EGFR-NON AF GERMAN 59 mL/min/1.73m2 Critically low >=60 [facility] Comment on above: Performed By: #### C JACKSON, CMADM ####[facility] Hyufajocpx4685 [place] [address]Dr. Shahbaz Rogel Globulin (S) [Mass/Vol] 3.2 g/dL Normal [facility] Comment on above: Performed By: #### C JACKSON, CMADM ####[facility] Asmetqpdsk7150 [place] [address]Dr. Shahbaz Rogel Glucose [Mass/Vol] 89 mg/dL Normal 74-106 [facility] Comment on above: Performed By: #### C JACKSON, CMADM ####[facility] Fxcwesiiht6699 [place] [address]Dr. Shahbaz Rogel Potassium [Moles/Vol] 4.0 mmol/L Normal 3.5-5.1 [facility] Comment on above: Performed By: #### C JACKSON, CMADM ####[facility] Kzbydhywfy[address] [place], [place] [address]Dr. Shahbaz Rogel Protein [Mass/Vol] 6.8 g/dL Normal 6.4-8.2 [facility] Comment on above: Performed By: #### C JACKSON, CMADM ####[facility] Hageoxmlhy39[address] [place], [place] [address]Dr. Shahbaz Rogel Sodium [Moles/Vol] 142 mmol/L Normal 136-145 [facility] Comment on above: Performed By: #### C JACKSON, CMADM ####[facility] Ujlujpgwuh15[address] [place], [place] [address]Dr. Shahbaz Rogel Urea nitrogen [Mass/Vol] 11.0 mg/dL Normal 7.0-18.0 [facility] Comment on above: Performed By: #### C JACKSON, CMADM ####[facility] Sxqjcmonlu917[address] [place], [place] [address]Dr. Shahbaz Rogel Urea nitrogen/Creatinine [Mass ratio] 11.3 mg/mg Normal [facility] Comment on above: Performed By: #### C JACKSON, CMADM ####[facility] Qijvdlgizi1855[address] [place], [place] [address]Dr. Shahbaz Juan F T4on 07-04-2022 T4 [Mass/Vol] 4.70 ug/dL Critically low 4.80-13.[address] [facility] Comment on above: Performed By: #### T SH, T4 ####[facility] Qjebvugjtf5739 [place] [id number]. Shahbaz Rogel TSHon 07-04-2022 TSH 0.359 uIU/mL Normal 0.358-3.[address] [facility] Comment on above: Performed By: #### T SH, T4 ####[facility] Yxtqkmfbie[address] [place], [place] [address]Dr. Shahbaz Rogel XR CHEST 1 Von 07-04-2022 XR CHEST 1 V Normal [facility] XR CHEST 1 V Normal [facility] CHLAMYDIA PNEUMONIAE IgG IgM IgAon 06-27-2022 Chlamydia pneumoniae IgA <1:16 Normal Neg:<1:[address] [facility] Comment on above: Performed By: #### C HLMPNE ####[facility] Qthvmrgcyc76[address] [place], [place] [address]Dr. Shahbaz Rogel Chlamydia pneumoniae IgG <1:16 Normal Neg:<1:[address] [facility] Comment on above: Performed By: #### C HLMPNE ####[facility] Randxsviiu6075[address] [place], [place] [address]Dr. Shahbaz Rogel Chlamydia pneumoniae IgM <1:10 Normal Neg:<1:[address] [facility] Comment on above: Performed By: #### C HLMPNE ####[facility] Icoynviqbs92[address] [place], [place] [address]Dr. Shahbaz Rogel Test Information: Comment Normal [facility] Comment on above: [...] Performed By: #### C HLMPNE ####[facility] Iegypxalnn95[address] [place], [place] [address]Dr. Shahbaz Rogel Covid-19 PCR (CVDTB)on 06-03 SARS-CoV-2 [...] for this test is supported by the [employer] of Health and Human Service's (HHS's) declaration [...] Performed By: #### C VDTBH ####[facility] Wxftnxfgsa8[address] [place], [place] [address]Dr. Shahbaz Rogel CYCLIC CITRULLINATED PEPTIDE AB (CCP)on 06-25-2022 CCP Antibodies IgG/IgA 13 units Normal 0-19 [facility] Comment on above: Result Comment: Nega tive <20 Weak positive 20 - 39 Moderate positive 40 - 59 Strong positive >59 Performed By: #### C CPAB ####[facility] Hldkmcnply49[address] [place] [address]Dr. Shahbaz Rogel ANTI NEUTROPHIL CYTOPLASMIC AB (ANCA) PRon 06-24-2022 Anti-MPO Antibodies <0.2 Normal 0.0-0.[address] [facility] Comment on above: Result Comment: Perf ormed at: BN Performed By: #### A NCAP ####[facility] Hngogxmnup95[address] [place] [address]Dr. Shahbaz Rogel Anti-PR3 Antibodies 5.0 units Critically high 0.0-0.[address] [facility] Comment on above: Result Comment: Perf ormed at: BN Performed By: #### A NCAP ####[facility] Yhptnybgdy25[address] [place] [address]Dr. Lilajarrod Juan F Atypical pANCA <1:20 Normal Neg:<1:20 [facility] Comment on above: Result Comment: The atypical pANCA pattern has been observed in a significantpercentage of patients with ulcerative colitis, primary sclerosingcholangitis and autoimmune hepatitis.Performed at: CB Performed By: #### A NCAP ####[facility] Vsmdihkmgq8307 [place] [address]Dr. Shahbaz Rogel Cytoplasmic (C-ANCA) <1:20 Normal Neg:<1:20 [facility] Comment on above: Result Comment: Perf ormed at: CB Performed By: #### A NCAP ####[facility] Sxyopnbcef30[address] [place] [address]Dr. Shahbaz Rogel Perinuclear (P-ANCA) 1:80 Critically high Neg:<1:20 [facility] Comment on above: Result Comment: The presence of positive fluorescence exhibiting P-ANCA or C-ANCApatterns alone is not specific for the diagnosis of Ada'sGranulomatosis (WG) or microscopic polyangiitis. Decisions abouttreatment should not be based solely on ANCA IFA results. TheInternational ANCA Group Consensus recommends follow up testing ofpositive sera with both SD-3 and MPO-ANCA enzyme immunoassays. Asmany as 5% serum samples are positive only by EIA.Ref. AM J Clin Pathol 1999;111:507-513.Performed at: CB Performed By: #### A NCAP ####[facility] Spudbiyndd[address] [place] [address]Dr. Shahbaz Rogel ANTIGLOMERULAR BASEMENT MEMB ANTOINE ABSon 06-24-2022 Anti-GBM Antibodies <0.2 Normal 0.0-0.[address] [facility] Comment on above: Performed By: #### A GBM ####[facility] Ayldilaboz[address] [place] [address]Dr. Shahbaz Rogel SHAHANA EIA W/REFLEX 5 BIOMARKER Son 06-23-2022 SHAHANA Direct Negative Normal Negative [facility] Comment on above: Performed By: #### A NARF ####[facility] Yjxpvjkgjo7329 [place] [address]Dr. Shahbaz Rogel ANTISCLERODERMA ABon 022 Antiscleroderma-70 Antibodies <0.2 Normal 0.0-0.[address] [facility] Comment on above: Performed By: #### A NSCLER ####[facility] Htypmlbgfs[address] [place], [place] [address]Dr. Shahbaz Rogel RHEUMATOID FACTORon 06-23-20 RA Latex Turbid. <10.0 Normal <14.[address] [facility] Comment on above: Performed By: #### R F ####[facility] Jmjxqnptqo45[address] [place], [place] [address]Dr. Shahbaz Rogel CBC AUTO DIFFon 06-22-2022 BASO # 0.0 103/ul Normal 0.0-0.[address] [facility] Comment on above: Performed By: #### C BC ####[facility] Acbnucnnpm88[address] [place], [place] [address]Dr. Shahbaz Rogel Basophils/100 WBC (Bld) 0.5 % Normal 0.2-2.[address] [facility] Comment on above: Performed By: #### C BC ####[facility] Xvpbvymmmb9204[address] [place], [place] [address]DrChen Rogel EO # 0.1 103/ul Normal 0.0-0.[address] [facility] Comment on above: Performed By: #### C BC ####[facility] Zdoehviiux[address] [place], [place] [address]Dr. Shahbaz Rogel Eosinophils/100 WBC (Bld) 3.4 % Normal 0.9-7.0 [facility] Comment on above: Performed By: #### C BC ####[facility] Taskcafzcm3676[address] [place], [place] [address]Dr. Shahbaz Rogel Erythrocyte distribution width (RBC) [Ratio] 13.2 % Normal 11.0-15.[address] [facility] Comment on above: Performed By: #### C BC ####[facility] Aydeglezxj5000[address] [place], [place] [address]DrChen Rogel Hematocrit (Bld) [Volume fraction] 45.6 % Normal 36.0-48.[address] [facility] Comment on above: Performed By: #### C BC ####[facility] Lzmyqvtitf7438 [place] [address]Dr. Shahbaz Rogel Hemoglobin (Bld) [Mass/Vol] 14.7 g/dL Normal 12.0-16.[address] [facility] Comment on above: Performed By: #### C BC ####[facility] Homssbxijv3040[address] [place], [place] [address]DrChen Rogel IG # 0.01 10e3/ul Normal 0.00-0.[address] [facility] Comment on above: Performed By: #### C BC ####[facility] Voumvqafhl497[address] [place], [place] [address]DrChen Rogel IG % 0.3 % Normal 0.0-0.[address] [facility] Comment on above: Performed By: #### C BC ####[facility] Krqgyhlxdn9[address] [place], [place] [address]DrChen Rogel LYMPH # 1.0 103/ul Critically low 1.2-3.[address] [facility] Comment on above: Performed By: #### C BC ####[facility] Evblqlecbh55[address] [place], [place] [address]DrChen Lilajarrod Rogel Lymphocytes/100 WBC (Bld) 25.7 % Normal 20.5-60.[address] [facility] Comment on above: Performed By: #### C BC ####[facility] Cefcwabrxy[address] [place], [place] [address]DrChen Rogel MANUAL DIFF REQ NO Normal [facility] Comment on above: Performed By: #### C BC ####[facility] Ciahxiwqmt[address] [place], [place] [address]DrChen Rogel MCH (RBC) [Entitic mass] 28.1 pg Normal 26.7-34.0 [facility] Comment on above: Performed By: #### C BC ####[facility] Vvmijghpwu4[address] [place], [place] [address]DrChen Rogel MCHC (RBC) [Mass/Vol] 32.2 g/dL Normal 29.9-35.2 [facility] Comment on above: Performed By: #### C BC ####[facility] Zryljvtlzc80[address] [place], [place] [address]DrChen Rogel MCV (RBC) [Entitic vol] 87.2 fL Normal 81.0-99.0 [facility] Comment on above: Performed By: #### C BC ####[facility] Ounwiqusxz[address] [place], [place] [address]DrChen Rogel MONO # 0.2 103/ul Critically low 0.3-0.8 [facility] Comment on above: Performed By: #### C BC ####[facility] Fwkiaovspx[address] [place], [place] [address]DrChen Rogel Monocytes/100 WBC (Bld) 6.0 % Normal 1.7-12.0 [facility] Comment on above: Performed By: #### C BC ####[facility] Glwgmaxccg7[address] [place], [place] [address]DrChen Rogel NEUT # 2.5 103/ul Normal 1.4-6.5 [facility] Comment on above: Performed By: #### C BC ####[facility] Klyswydpxo38[address] [place], [place] [address]DrChen Rogel Neutrophils/100 WBC (Bld) 64.1 % Normal 43.0-75.0 [facility] Comment on above: Performed By: #### C BC ####[facility] Anzneuaylq[address] [place], [place] [address]DrChen Rogel Platelet mean volume (Bld) [Entitic vol] 9.4 fL Critically low 9.5-13.5 [facility] Comment on above: Performed By: #### C BC ####[facility] Owjgdfdcjm524[address] [place], [place] [address]DrChen Rogel PLT 212 103/ul Normal 150-450 [facility] Comment on above: Performed By: #### C BC ####[facility] Deofxhphzf189[address] [place], [place] [address]DrChen Rogel RBC 5.23 106/ul Normal 4.20-5.[address] [facility] Comment on above: Performed By: #### C BC ####[facility] Znsngpuvdn2934 [place] [address]Dr. Shahbaz Rogel WBC 3.9 103/ul Critically low 4.0-11.[address] [facility] Comment on above: Performed By: #### C BC ####[facility] Emzmyluxrq7106[address] [place], [place] [address]DrChen Rogel PROF 14(COMP METB)on 022 Albumin [Mass/Vol] 4.1 g/dL Normal 3.4-5.[address] [facility] Comment on above: Performed By: #### C MP ####[facility] Wlkozsxgdx8711[address] [place], [place] [address]Dr. Shahbaz Rogel Albumin/Globulin [Mass ratio] 1.1 {ratio} Normal [facility] Comment on above: Performed By: #### C MP ####[facility] Tzpdleyble6633[address] [place], [place] [address]Dr. Shahbaz Rogel ALP [Catalytic activity/Vol] 133 U/L Critically high 46-[address] [facility] Comment on above: Performed By: #### C MP ####[facility] Zhdthpxwhn5590[address] [place], [place] [address]Dr. Shahbaz Rogel ALT [Catalytic activity/Vol] 29 U/L Normal 14-[address] [facility] Comment on above: Performed By: #### C MP ####[facility] Pdyvvfuhil6950[address] [place], [place] [address]Dr. Shahbaz Rogel Anion gap [Moles/Vol] 10.9 mmol/L Normal [facility] Comment on above: Performed By: #### C MP ####[facility] Jpqsreiqst764768 [address] [place], [place] [address]Dr. Shahbaz Rogel AST [Catalytic activity/Vol] 23 U/L Normal 15-[address] [facility] Comment on above: Performed By: #### C MP ####[facility] Qzszczmice511368 [address] [place], [place] [address]Dr. Shahbaz Rogel Bilirubin [Mass/Vol] 0.3 mg/dL Normal 0.2-1.0 [facility] Comment on above: Performed By: #### C MP ####[facility] Orgpzpeomx3834 [place] [address]Dr. Shahbaz Juan F Calcium [Mass/Vol] 9.1 mg/dL Normal 8.5-10.1 [facility] Comment on above: Performed By: #### C MP ####[facility] Wjkcewdhqm9669 [place] [address]Dr. Shahbaz Juan F Chloride [Moles/Vol] 103 mmol/L Normal 98-107 [facility] Comment on above: Performed By: #### C MP ####[facility] Wfvhufxtpi9495[address] [place], [place] [address]Dr. Shahbaz Juan F CO2 [Moles/Vol] 30.8 mmol/L Normal 21.0-32.0 [facility] Comment on above: Performed By: #### C MP ####[facility] Jazlcqnxff3786[address] [place], [place] [address]Dr. Shahbaz Juan F Creatinine [Mass/Vol] 1.02 mg/dL Normal 0.55-1.02 [facility] Comment on above: Performed By: #### C MP ####[facility] Sineaewwne925568 [address] [place], [place] [address]Dr. Shahbaz Juan F EGFR-AF GERMAN >60 Normal >=60 [facility] Comment on above: Performed By: #### C MP ####[facility] Zzujvfsvhc1610[address] [place], [place] [address]Dr. Shahbaz Rogel EGFR-NON AF GERMAN 56 mL/min/1.73m2 Critically low >=60 [facility] Comment on above: Performed By: #### C MP ####[facility] Anoszsvrnb5701[address] [place], [place] [address]Dr. Shahbaz Rogel Globulin (S) [Mass/Vol] 3.7 g/dL Normal [facility] Comment on above: Performed By: #### C MP ####[facility] Wctgisilbn135[address] [place], [place] [address]Dr. Shahbaz Rogel Glucose [Mass/Vol] 80 mg/dL Normal 74-106 [facility] Comment on above: Performed By: #### C MP ####[facility] Kndgbreddp2645 [place] [id number]. Shahbaz Rogel Potassium [Moles/Vol] 3.7 mmol/L Normal 3.5-5.1 [facility] Comment on above: Performed By: #### C MP ####[facility] Eljbsntpfv9677 [place] [id number]. Shahbaz Rogel Protein [Mass/Vol] 7.8 g/dL Normal 6.4-8.2 [facility] Comment on above: Performed By: #### C MP ####[facility] Ogegxtbxpg6888 [place] [address]Dr. Shahbaz Rogel Sodium [Moles/Vol] 141 mmol/L Normal 136-[address] [facility] Comment on above: Performed By: #### C MP ####[facility] Bvufyrggao8804 [place] [address]Dr. Shahbaz Juan F Urea nitrogen [Mass/Vol] 10.0 mg/dL Normal 7.0-18.[address] [facility] Comment on above: Performed By: #### C MP ####[facility] Bnxxqwyvvb0034 [place] [address]Dr. Shahbaz Rogel Urea nitrogen/Creatinine [Mass ratio] 9.8 mg/mg Normal [facility] Comment on above: Performed By: #### C MP ####[facility] Xygimcnflz9247 [place] [address]Dr. Shahbaz Juan F SED RATE [facility] 2021 SED RATE 17 mm/hr Normal <=30 [facility] Comment on above: Performed By: #### S EDR ####[facility] Zgyfvuiswa606[address] [place], [place] [address]Dr. Shahbaz Juan F CT CHEST HI RESOLUTIONon CT CHEST HI RESOLUTION Normal [facility] XR ANKLE RT MIN 3 VIEWSon XR ANKLE RT MIN 3 VIEWS Normal [facility] CT CHEST WO CONon 03-03-2022 CT CHEST WO CON Normal [facility] CT CSPINE WO CONon 06-02-[address] CSPINE WO CON Normal [facility] XR CHEST 2 Von 03-03-2022 XR CHEST 2 V Normal [facility] XR STERNUM MIN 2 VIEWSon XR STERNUM MIN 2 VIEWS Normal [facility] CT HEAD WO CONon 03-02-2022 CT HEAD WO CON Normal [facility] CBC AUTO DIFFon 01-21-2022 BASO # 0.0 103/ul Normal 0.0-0.1 [facility] Comment on above: Performed By: #### C BC ####[facility] Jvisahjdnk0677 [place] [address]Dr. Shahbaz Rogel Basophils/100 WBC (Bld) 0.0 % Critically low 0.2-2.0 [facility] Comment on above: Performed By: #### C BC ####[facility] Ofqvknhrtd0811 [place] [address]Dr. Shahbaz Rogel EO # 0.0 103/ul Normal 0.0-0.7 [facility] Comment on above: Performed By: #### C BC ####[facility] Tabkqwihwn5467 [place] [address]Dr. Shahbaz Rogel Eosinophils/100 WBC (Bld) 0.0 % Critically low 0.9-7.0 [facility] Comment on above: Performed By: #### C BC ####[facility] Spafcckctj4170[address] [place], [place] [address]Dr. Shahbaz Rogel Erythrocyte distribution width (RBC) [Ratio] 14.2 % Normal 11.0-15.0 [facility] Comment on above: Performed By: #### C BC ####[facility] Oyfraeaaud2547[address] [place], [place] [address]Dr. Shahbaz Rogel Hematocrit (Bld) [Volume fraction] 38.9 % Normal 36.0-48.0 [facility] Comment on above: Performed By: #### C BC ####[facility] Tpyphvqaek925168 [address] [place], [place] [address]Dr. Shahbaz Rogel Hemoglobin (Bld) [Mass/Vol] 11.8 g/dL Critically low 12.0-16.0 [facility] Comment on above: Performed By: #### C BC ####[facility] Ivvnxzdgrv4733 [place] [id number]. Shahbaz Rogel IG # 0.03 10e3/ul Normal 0.00-0.[address] [facility] Comment on above: Performed By: #### C BC ####[facility] Dqgwzjkpxs5769 [place] [id number]. Shahbaz Rogel IG % 0.4 % Normal 0.0-0.[address] [facility] Comment on above: Performed By: #### C BC ####[facility] Rsdinkelcb9191 [place] [address]Dr. Shahbaz Juan F LYMPH # 0.8 103/ul Critically low 1.2-3.[address] [facility] Comment on above: Performed By: #### C BC ####[facility] Jndddnlmdq7779 [place] [address]DrChen Rogel Lymphocytes/100 WBC (Bld) 10.3 % Critically low 20.5-60.[address] [facility] Comment on above: Performed By: #### C BC ####[facility] Aofvcpaxsx1460 [place] [address]DrChen Shahbaz Rogel MANUAL DIFF REQ NO Normal [facility] Comment on above: Performed By: #### C BC ####[facility] Xhgjtijauk4995 [place] [address]Dr. Shahbaz Juan F MCH (RBC) [Entitic mass] 27.1 pg Normal 26.7-34.[address] [facility] Comment on above: Performed By: #### C BC ####[facility] Bntxrfhdjp6[address] [place], [place] [address]Dr. Shahbaz Rogel MCHC (RBC) [Mass/Vol] 30.3 g/dL Normal 29.9-35.2 [facility] Comment on above: Performed By: #### C BC ####[facility] Wkraixrtgx0294 [place] [address]Dr. Shahbaz Juan F MCV (RBC) [Entitic vol] 89.2 fL Normal 81.0-99.[address] [facility] Comment on above: Performed By: #### C BC ####[facility] Cfjfjlxdcz2397 [place] [phone]. Shahbaz Rogel MONO # 0.4 103/ul Normal 0.3-0.8 [facility] Comment on above: Performed By: #### C BC ####[facility] Sonxlglsis4508 [place] [phone]. Shahbaz Rogel Monocytes/100 WBC (Bld) 4.7 % Normal 1.7-12.0 [facility] Comment on above: Performed By: #### C BC ####[facility] Mccfztkwqd4535[address] [place], [place] [address]Dr. Shahbaz Rogel NEUT # 6.6 103/ul Critically high 1.4-6.5 [facility] Comment on above: Performed By: #### C BC ####[facility] Bdljtsfrxq826068 [address] [place], [place] [address]Dr. Shahbaz Rogel Neutrophils/100 WBC (Bld) 84.6 % Critically high 43.0-75.0 [facility] Comment on above: Performed By: #### C BC ####[facility] Nimhimmayl108068 [address] [place], [place] [address]Dr. Shahbaz Rogel Platelet mean volume (Bld) [Entitic vol] 10.0 fL Normal 9.5-13.5 [facility] Comment on above: Performed By: #### C BC ####[facility] Omqrvtffwa827168 [address] [place], [place] [address]Dr. Shahbaz Rogel PLT 165 103/ul Normal 150-450 [facility] Comment on above: Performed By: #### C BC ####[facility] Zetidhckdc288168 [address] [place], [place] [address]Dr. Shahbaz Rogel RBC 4.36 106/ul Normal 4.20-5.40 [facility] Comment on above: Performed By: #### C BC ####[facility] Jhdvmocvah0118[address] [place], [place] [address]Dr. Shahbaz Rogel WBC 7.8 103/ul Normal 4.0-11.0 [facility] Comment on above: Performed By: #### C BC ####[facility] Puznsldore1935 [place] [address]Dr. Shahbaz Rogel ER URINE PROFILEon 2 Bilirubin Ql (U) Negative Normal NEGATIVE [facility] Comment on above: Performed By: #### E RUR ####[facility] Ktkjrkkvxf5924[address] [place], [place] [address]Dr. Shahbaz Rogel Clarity (U) CLEAR Normal CLEAR [facility] Comment on above: Performed By: #### E RUR ####[facility] Aathdpbkkh936168 [address] [place], [place] [address]Dr. Shahbaz Rogel Color (U) LT. YELLOW Normal YELLOW [facility] Comment on above: Performed By: #### E RUR ####[facility] Gvieetpkvz238368 [address] [place], [place] [address]Dr. Shahbaz Juan F ERUAHD A micrscopic examina tion will be performed if indicated. Normal [facility] Comment on above: Performed By: #### E RUR ####[facility] Scyqabgmtf1889[address] [place], [place] [address]Dr. Shahbaz Rogel Glucose Ql (U) Negative Normal NEGATIVE [facility] Comment on above: Performed By: #### E RUR ####[facility] Kbnyvfrbwg3614[address] [place], [place] [address]Dr. Shahbaz Rogel Hemoglobin Ql (U) Negative Normal NEGATIVE [facility] Comment on above: Performed By: #### E RUR ####[facility] Esgvjqebbp435368 [address] [place], [place] [address]Dr. Shahbaz Rogel Ketones Ql (U) Negative Normal NEGATIVE [facility] Comment on above: Performed By: #### E RUR ####[facility] Ykalvdvprl2695[address] [place], [place] [address]Dr. Lilalan Rogel LEUKOCYTES Negative Normal NEGATIVE [facility] Comment on above: Performed By: #### E RUR ####[facility] Oyzcpmlqnp495168 [address] [place], [place] [address]Dr. Lilalan Rogel Nitrite Ql (U) Negative Normal NEGATIVE [facility] Comment on above: Performed By: #### E RUR ####[facility] Zsebiubicu3576 [place] [address]Dr. Shahbaz Rogel pH (U) 6.0 [pH] Normal 5-[address] [facility] Comment on above: Performed By: #### E RUR ####[facility] Fgqhtpemih0923[address] [place], [place] [address]Dr. Shahbaz Rogel SPEC GRAVITY 1.020 Normal 1.005-<=1. [address] [facility] Comment on above: Performed By: #### E RUR ####[facility] Axvkaisgke3770[address] [place], [place] [address]Dr. Shahbaz Rogel UA PROTEIN Negative Normal NEGATIVE/ TRACE [facility] Comment on above: Performed By: #### E RUR ####[facility] Acibyqazlz2086[address] [place], [place] [address]Dr. Shahbaz Juan F UR MICRO IND NOT INDICATED Normal [facility] Comment on above: Performed By: #### E RUR ####[facility] Iimoznqbhw0985[address] [place], [place] [address]Dr. Shahbaz Rogel Urobilinogen Qn (U) 0.2 {Melida'U}/dL Normal 0.2 - 1. [address] [facility] Comment on above: Performed By: #### E RUR ####[facility] Dzxnrgdigp5610[address] [place], [place] [address]Dr. Shahbaz Rogel POINT OF CARE GLUCOSEon 01-01 Glucose [Mass/Vol] 151 mg/dL Critically high 74-106 [facility] Comment on above: Performed By: #### P OCGLUC ####[facility] Ppotavyupz544168 [address] [place], [place] [address]Dr. Shahbaz Rogel Glucose [Mass/Vol] 248 mg/dL Critically high 74-106 [facility] Comment on above: Performed By: #### P OCGLUC ####[facility] Dmxrfyyrpl7622[address] [place], [place] [address]Dr. Shahbaz Rogel PROF 14(COMP METB)on 022 Albumin [Mass/Vol] 2.8 g/dL Critically low 3.4-5.0 [facility] Comment on above: Performed By: #### C MP ####[facility] Klixdwqywl2508 [place] [address]Dr. Shahbaz Rogel Albumin/Globulin [Mass ratio] 0.9 {ratio} Normal [facility] Comment on above: Performed By: #### C MP ####[facility] Wwyeinkkbi5764 [place] [address]Dr. Shahbaz Rogel ALP [Catalytic activity/Vol] 90 U/L Normal 46-116 [facility] Comment on above: Performed By: #### C MP ####[facility] Eqjpxtwocj3795 [place] [address]Dr. Shahbaz Rogel ALT [Catalytic activity/Vol] 20 U/L Normal 14-[address] [facility] Comment on above: Performed By: #### C MP ####[facility] Mwxddijgvc1506 [place] [address]Dr. Lilajarrod Juan F Anion gap [Moles/Vol] 8.9 mmol/L Normal [facility] Comment on above: Performed By: #### C MP ####[facility] Sfuqfrucur0001[address] [place], [place] [address]Dr. Shahbaz Juan F AST [Catalytic activity/Vol] 14 U/L Critically low 15-[address] [facility] Comment on above: Performed By: #### C MP ####[facility] Yqeolofpge3855[address] [place], [place] [address]Dr. Shahbaz Juan F Bilirubin [Mass/Vol] 0.1 mg/dL Critically low 0.2-1.3 [facility] Comment on above: Performed By: #### C MP ####[facility] Elbtgipzcg4081 [place] [address]Dr. Lilajarrod Juan F Calcium [Mass/Vol] 8.2 mg/dL Critically low 8.5-10.1 [facility] Comment on above: Performed By: #### C MP ####[facility] Jgtjikxqpv4770[address] [place], [place] [address]Dr. Shahbaz Rogel Chloride [Moles/Vol] 110 mmol/L Critically high 98-107 [facility] Comment on above: Performed By: #### C MP ####[facility] Vlegimjvzj32[address] [place], [place] [address]Dr. Shahbaz Rogle CO2 [Moles/Vol] 28.0 mmol/L Normal 22.0-30.[address] [facility] Comment on above: Performed By: #### C MP ####[facility] Qmnmroirrr976168 [address] [place], [place] [address]Dr. Shahbaz Rogel Creatinine [Mass/Vol] 0.78 mg/dL Normal 0.52-1.[address] [facility] Comment on above: Performed By: #### C MP ####[facility] Arnxdlkvjc027[address] [place], [place] [address]Dr. Shahbaz Rogel EGFR-AF GERMAN >60 Normal >=[address] [facility] Comment on above: Performed By: #### C MP ####[facility] Pslwryhhzz5813[address] [place], [place] [address]Dr. Shahbaz Rogel EGFR-NON AF GERMAN >60 Normal >=[address] [facility] Comment on above: Performed By: #### C MP ####[facility] Fkarpurfye066668 [address] [place], [place] [address]Dr. Shahbaz Rogel Globulin (S) [Mass/Vol] 3.1 g/dL Normal [facility] Comment on above: Performed By: #### C MP ####[facility] Adadxueuhb935468 [address] [place], [place] [address]Dr. Shahbaz Rogel Glucose [Mass/Vol] 121 mg/dL Critically high 74-106 [facility] Comment on above: Performed By: #### C MP ####[facility] Meyerlzguw8584[address] [place], [place] [address]Dr. Shahbaz Rogel Potassium [Moles/Vol] 3.9 mmol/L Normal 3.4-5.[address] [facility] Comment on above: Performed By: #### C MP ####[facility] Jhksvewhvv9035[address] [place], [place] [address]Dr. Shahbaz Rogel Protein [Mass/Vol] 5.9 g/dL Critically low 6.1-8.2 [facility] Comment on above: Performed By: #### C MP ####[facility] Ijmsoyrmja2879[address] [place], [place] [address]Dr. Shahbaz Rogel Sodium [Moles/Vol] 143 mmol/L Normal 137-145 [facility] Comment on above: Performed By: #### C MP ####[facility] Ghcgmtsazz8303 [place] [address]Dr. Shahbaz Rogel Urea nitrogen [Mass/Vol] 26.0 mg/dL Critically high 7.0-18.0 [facility] Comment on above: Performed By: #### C MP ####[facility] Axmlpxcays8544[address] [place], [place] [address]Dr. Shahbaz Rogel Urea nitrogen/Creatinine [Mass ratio] 33.3 mg/mg Normal [facility] Comment on above: Performed By: #### C MP ####[facility] Igkltmzyba960968 [address] [place], [place] [address]Dr. Shahbaz Rogel AKEGI-6-EPAGVPFTVIDuz 2021 Atcog-7-Gygchbcohsu, Serum 154 mg/dL Normal 101-187 [facility] Comment on above: Performed By: #### A LPHA-1 ####[facility] Xgzkxbkcjq7637[address] [place], [place] [address]Dr. Shahbaz Rogel CBC AUTO DIFFon 01-20-2022 BASO # 0.0 103/ul Normal 0.0-0.1 [facility] Comment on above: Performed By: #### C BC ####[facility] Onqvgyhbze57[address] [place], [place] [address]Dr. Shahbaz Rogel Basophils/100 WBC (Bld) 0.0 % Critically low 0.2-2.0 [facility] Comment on above: Performed By: #### C BC ####[facility] Hpcghrwmja0860[address] [place], [place] [address]Dr. Shahbaz Rogel EO # 0.0 103/ul Normal 0.0-0.7 [facility] Comment on above: Performed By: #### C BC ####[facility] Eslvmiyhyi6831 [place] [address]Dr. Shahbaz Rogel Eosinophils/100 WBC (Bld) 0.0 % Critically low 0.9-7.0 [facility] Comment on above: Performed By: #### C BC ####[facility] Wfntlmsuuq224168 [address] [place], [place] [address]Dr. Shahbaz Rogel Erythrocyte distribution width (RBC) [Ratio] 13.7 % Normal 11.0-15.[address] [facility] Comment on above: Performed By: #### C BC ####[facility] Hutnvcaqba577[address] [place], [place] [address]Dr. Shahbaz Rogel Hematocrit (Bld) [Volume fraction] 41.2 % Normal 36.0-48.[address] [facility] Comment on above: Performed By: #### C BC ####[facility] Ksstronyvp8978[address] [place], [place] [address]Dr. Shahbaz Rogel Hemoglobin (Bld) [Mass/Vol] 12.8 g/dL Normal 12.0-16.[address] [facility] Comment on above: Performed By: #### C BC ####[facility] Pehrqpfgcw4354[address] [place], [place] [address]Dr. Shahbaz Rogel IG # 0.10 10e3/ul Critically high 0.00-0.[address] [facility] Comment on above: Performed By: #### C BC ####[facility] Qycytfhxbh968[address] [place], [place] [address]Dr. Shahbaz Rogel IG % 0.5 % Normal 0.0-0.[address] [facility] Comment on above: Performed By: #### C BC ####[facility] Qpelffrqwq72[address] [place], [place] [address]Dr. Shahbaz Rogel LYMPH # 0.7 103/ul Critically low 1.2-3.8 [facility] Comment on above: Performed By: #### C BC ####[facility] Ouuoesbgyp2829[address] [place], [place] [address]Dr. Shahbaz Rogel Lymphocytes/100 WBC (Bld) 6.2 % Critically low 20.5-60.0 [facility] Comment on above: Result Comment: dif. not rqd. same as 01/18/22 Performed By: #### C BC ####[facility] Iblvjpqnev5455[address] [place], [place] [address]Dr. Shahbaz Rogel MANUAL DIFF REQ NO Normal [facility] Comment on above: Performed By: #### C BC ####[facility] Lognzvmzvg0856 [place] [id number]. Shahbaz Rogel MCH (RBC) [Entitic mass] 27.2 pg Normal 26.7-34.[address] [facility] Comment on above: Performed By: #### C BC ####[facility] Mwhatypfcw9746 [place] [address]Dr. Shahbaz Rogel MCHC (RBC) [Mass/Vol] 31.1 g/dL Normal 29.9-35.[address] [facility] Comment on above: Performed By: #### C BC ####[facility] Mdtksowmpk9146 [place] [address]Dr. Shahbaz Juan F MCV (RBC) [Entitic vol] 87.5 fL Normal 81.0-99.[address] [facility] Comment on above: Performed By: #### C BC ####[facility] Sssztcpoay5586[address] [place], [place] [address]Dr. Lilajarrod Rogel MONO # 0.2 103/ul Critically low 0.3-0.[address] [facility] Comment on above: Performed By: #### C BC ####[facility] Fszezcmvty028[address] [place], [place] [address]Dr. Lilajarrod Rogel Monocytes/100 WBC (Bld) 1.7 % Normal 1.7-12.[address] [facility] Comment on above: Performed By: #### C BC ####[facility] Ksnptcgkek213[address] [place], [place] [address]Dr. Shahbaz Juan F NEUT # 9.8 103/ul Critically high 1.4-6.[address] [facility] Comment on above: Performed By: #### C BC ####[facility] Ghlrvjhugn[address] [place], [place] [address]DrChen Lilajarrod Rogel Neutrophils/100 WBC (Bld) 91.6 % Critically high 43.0-75.[address] [facility] Comment on above: Performed By: #### C BC ####[facility] Zbuxpgeitw044[address] [place], [place] [address]Dr. Lilajarrod Rogel Platelet mean volume (Bld) [Entitic vol] 10.0 fL Normal 9.5-13.[address] [facility] Comment on above: Performed By: #### C BC ####[facility] Tarnnlooqa7033 [place] [id number]. Shahbaz Rogel PLT 198 103/ul Normal 150-[address] [facility] Comment on above: Performed By: #### C BC ####[facility] Nopslcevnc0660 [place] [id number]. Shahbaz Rogel RBC 4.71 106/ul Normal 4.20-5.[address] [facility] Comment on above: Performed By: #### C BC ####[facility] Jykoxyvezz8957 [place] [id number]. Shahbaz Rogel WBC 10.7 103/ul Normal 4.0-11.[address] [facility] Comment on above: Performed By: #### C BC ####[facility] Mlphyxsygx1168 [place] [address]Dr. Shahbaz Rogel POINT OF CARE GLUCOSEon 01-01 Glucose [Mass/Vol] 157 mg/dL Critically high 74-106 [facility] Comment on above: Performed By: #### P OCGLUC ####[facility] Peqpadgjwh3313 [place] [address]Dr. Shahbaz Rogel Glucose [Mass/Vol] 225 mg/dL Critically high 74-106 [facility] Comment on above: Performed By: #### P OCGLUC ####[facility] Uxcfysxyga2801 [place] [address]Dr. Shahbaz Rogel Glucose [Mass/Vol] 185 mg/dL Critically high 74-106 [facility] Comment on above: Performed By: #### P OCGLUC ####[facility] Uxbfnoqpir7117 [place] [address]Dr. Shahbaz Rogel Glucose [Mass/Vol] 134 mg/dL Critically high -106 [facility] Comment on above: Performed By: #### P OCGLUC ####[facility] Hbchoxnzvx8031 [place] [address]Dr. Shahbaz Rogel PROF 14(COMP METB)on 022 Albumin [Mass/Vol] 3.0 g/dL Critically low 3.4-5.0 [facility] Comment on above: Performed By: #### C MP ####[facility] Hijswxpgsm6155 [place] [address]Dr. Shahbaz Juan F Albumin/Globulin [Mass ratio] 0.9 {ratio} Normal [facility] Comment on above: Performed By: #### C MP ####[facility] Datblmrnem1836 [place] [address]Dr. Shahbaz Juan F ALP [Catalytic activity/Vol] 81 U/L Normal 46-[address] [facility] Comment on above: Performed By: #### C MP ####[facility] Zpgvyzmddt[address] [place], [place] [address]Dr. Lilajarrod Rogel ALT [Catalytic activity/Vol] 14 U/L Normal 14-[address] [facility] Comment on above: Performed By: #### C MP ####[facility] Htvaauohcu4[address] [place], [place] [address]Dr. Shahbaz Rogel Anion gap [Moles/Vol] 13.1 mmol/L Normal [facility] Comment on above: Performed By: #### C MP ####[facility] Ediaxrystw4649[address] [place], [place] [address]Dr. Shahbaz Juan F AST [Catalytic activity/Vol] 20 U/L Normal 15-[address] [facility] Comment on above: Performed By: #### C MP ####[facility] Jkskjnnwze97[address] [place], [place] [address]Dr. Shahbaz Rogel Bilirubin [Mass/Vol] 0.3 mg/dL Normal 0.2-1.3 [facility] Comment on above: Performed By: #### C MP ####[facility] Hdrenmefhr13[address] [place], [place] [address]Dr. Shahbaz Rogel Calcium [Mass/Vol] 8.5 mg/dL Normal 8.5-10.1 [facility] Comment on above: Performed By: #### C MP ####[facility] Miclhmkmlc5[address] [place], [place] [address]Dr. Shahbaz Rogel Chloride [Moles/Vol] 107 mmol/L Normal 98-107 [facility] Comment on above: Performed By: #### C MP ####[facility] Nmpwoxllkg3749 [place] [id number]. Shahbaz Rogel CO2 [Moles/Vol] 24.0 mmol/L Normal 22.0-30.[address] [facility] Comment on above: Performed By: #### C MP ####[facility] Txefkgidtj7326 [place] [id number]. Shahbaz Rogel Creatinine [Mass/Vol] 1.00 mg/dL Normal 0.52-1.[address] [facility] Comment on above: Performed By: #### C MP ####[facility] Yxgqqbrxti4965 [place] [id number]. Shahbaz Rogel EGFR-AF GERMAN >60 Normal >=[address] [facility] Comment on above: Performed By: #### C MP ####[facility] Dilygpbjxz0019 [place] [address]Dr. Shahbaz Juan F EGFR-NON AF GERMAN 57 mL/min/1.73m2 Critically low >=[address] [facility] Comment on above: Performed By: #### C MP ####[facility] Uddzvueycu0027 [place] [id number]. Shahbaz Rogel Globulin (S) [Mass/Vol] 3.4 g/dL Normal [facility] Comment on above: Performed By: #### C MP ####[facility] Apvtdpiovr2420 [place] [id number]. Shahbaz Juan F Glucose [Mass/Vol] 153 mg/dL Critically high 74-106 [facility] Comment on above: Performed By: #### C MP ####[facility] Bzzkcmbuam9266 [place] [id number]. Shahbaz Rogel Potassium [Moles/Vol] 4.1 mmol/L Normal 3.4-5.0 [facility] Comment on above: Performed By: #### C MP ####[facility] Jnbuvfkzdz0428 [place] [id number]. Shahbaz Rogel Protein [Mass/Vol] 6.4 g/dL Normal 6.1-8.2 [facility] Comment on above: Performed By: #### C MP ####[facility] Keiyfsykye8[address] [place], [place] [address]Dr. Shahbaz Juan F Sodium [Moles/Vol] 140 mmol/L Normal 137-145 [facility] Comment on above: Performed By: #### C MP ####[facility] Tfwliekplu0084[address] [place], [place] [address]Dr. Lilajarrod Rogel Urea nitrogen [Mass/Vol] 26.0 mg/dL Critically high 7.0-18.0 [facility] Comment on above: Performed By: #### C MP ####[facility] Fhzevrfxei720868 [address] [place], [place] [address]Dr. Shahbaz Juan F Urea nitrogen/Creatinine [Mass ratio] 26.5 mg/mg Normal [facility] Comment on above: Performed By: #### C MP ####[facility] Smrlrxxwez6074[address] [place], [place] [address]Dr. Shahbaz Juan F BNPon 01-19-2022 Natriuretic peptide B (Bld) [Mass/Vol] 117.0 pg/mL Normal <=900.0 [facility] Comment on above: Performed By: #### B PAIN MANAGEMENT PHYSICIAN, CMP ####[facility] Usoshnhbso0964[address] [place], [place] [address]Dr. Shahbaz Rogel CBC AUTO DIFFon 01-19-2022 BASO # 0.0 103/ul Normal 0.0-0.1 [facility] Comment on above: Performed By: #### C BC ####[facility] Cxxsqeclbd224[address] [place], [place] [address]Dr. Shahbaz Rogel Basophils/100 WBC (Bld) 0.0 % Critically low 0.2-2.0 [facility] Comment on above: Performed By: #### C BC ####[facility] Botezjnhal568[address] [place], [place] [address]Dr. Shahbaz Rogel EO # 0.0 103/ul Normal 0.0-0.7 [facility] Comment on above: Performed By: #### C BC ####[facility] Iaeakguqkl5939[address] [place], [place] [address]Dr. Shahbaz Rogel Eosinophils/100 WBC (Bld) 0.0 % Critically low 0.9-7.[address] [facility] Comment on above: Performed By: #### C BC ####[facility] Fkyjhalqrq8838[address] [place], [place] [address]Dr. Shahbaz Rogel Erythrocyte distribution width (RBC) [Ratio] 13.4 % Normal 11.0-15.[address] [facility] Comment on above: Performed By: #### C BC ####[facility] Dmujkcglel740868 [address] [place], [place] [address]Dr. Shahbaz Rogel Hematocrit (Bld) [Volume fraction] 46.3 % Normal 36.0-48.0 [facility] Comment on above: Performed By: #### C BC ####[facility] Ssmccsahcq4294[address] [place], [place] [address]DrChen Rogel Hemoglobin (Bld) [Mass/Vol] 14.3 g/dL Normal 12.0-16.[address] [facility] Comment on above: Performed By: #### C BC ####[facility] Gcosdrcbkq9397[address] [place], [place] [address]Dr. Shahbaz Rogel IG # 0.00 10e3/ul Normal 0.00-0.[address] [facility] Comment on above: Performed By: #### C BC ####[facility] Igjxwwbqcx117[address] [place], [place] [address]DrChen Rogel IG % 0.0 % Normal 0.0-0.5 [facility] Comment on above: Performed By: #### C BC ####[facility] Eeqzlnhuwv3775[address] [place], [place] [address]DrChen Rogel LYMPH # 0.6 103/ul Critically low 1.2-3.8 [facility] Comment on above: Performed By: #### C BC ####[facility] Yyglttqnic7380[address] [place], [place] [address]DrChen Rogel Lymphocytes/100 WBC (Bld) 14.2 % Critically low 20.5-60.0 [facility] Comment on above: Performed By: #### C BC ####[facility] Rcmaksrpou2564[address] [place], [place] [address]DrChen Rogel MANUAL DIFF REQ NO Normal [facility] Comment on above: Performed By: #### C BC ####[facility] Szmzwtsbee7643 [place] [address]DrChen Rogel MCH (RBC) [Entitic mass] 27.7 pg Normal 26.7-34.[address] [facility] Comment on above: Performed By: #### C BC ####[facility] Znqeiuczjp7193 [place] [address]DrChen Rogel MCHC (RBC) [Mass/Vol] 30.9 g/dL Normal 29.9-35.2 [facility] Comment on above: Performed By: #### C BC ####[facility] Ieuznyuyzl9147[address] [place], [place] [address]DrChen Rogel MCV (RBC) [Entitic vol] 89.6 fL Normal 81.0-99.[address] [facility] Comment on above: Performed By: #### C BC ####[facility] Prmfhvognb339[address] [place], [place] [address]DrChen Rogel MONO # 0.0 103/ul Critically low 0.3-0.[address] [facility] Comment on above: Performed By: #### C BC ####[facility] Tujigrwndt4125[address] [place], [place] [address]DrChen Rogel Monocytes/100 WBC (Bld) 1.0 % Critically low 1.7-12.[address] [facility] Comment on above: Performed By: #### C BC ####[facility] Iizbfuoamu2611[address] [place], [place] [address]DrChen Rogel NEUT # 3.5 103/ul Normal 1.4-6.5 [facility] Comment on above: Performed By: #### C BC ####[facility] Defblxuywg1835[address] [place], [place] [address]DrChen Rogel Neutrophils/100 WBC (Bld) 84.8 % Critically high 43.0-75.0 [facility] Comment on above: Performed By: #### C BC ####[facility] Szlxonzrrz1147[address] [place], [place] [address]DrChen Rogel Platelet mean volume (Bld) [Entitic vol] 9.8 fL Normal 9.5-13.[address] [facility] Comment on above: Performed By: #### C BC ####[facility] Duqpqgrjxk9842 [place] [address]Dr. Shahbaz Rogel PLT 185 103/ul Normal 150-[address] [facility] Comment on above: Performed By: #### C BC ####[facility] Vnvyjjzuyj6270[address] [place], [place] [address]Dr. Shahbaz Rogel RBC 5.17 106/ul Normal 4.20-5.[address] [facility] Comment on above: Performed By: #### C BC ####[facility] Icvcmkwiob9107[address] [place], [place] [address]Dr. Shahbaz Rogel WBC 4.2 103/ul Normal 4.0-11.[address] [facility] Comment on above: Performed By: #### C BC ####[facility] Pitjzpxvsc5644[address] [place], [place] [address]Dr. Shahbaz Rogel LACTATE/LACTIC ACIDon 2021 Lactate [Moles/Vol] 1.7 mmol/L Normal 0.7-2.[address] [facility] Comment on above: Performed By: #### L ACT ####[facility] Ocrssljkgq1649[address] [place], [place] [address]Dr. Shahbaz Rogel POINT OF CARE GLUCOSEon 01-01 Glucose [Mass/Vol] 173 mg/dL Critically high 74-106 [facility] Comment on above: Performed By: #### P OCGLUC ####[facility] Jxlakcmyks8894[address] [place], [place] [address]Dr. Shahbaz Rogel Glucose [Mass/Vol] 181 mg/dL Critically high 74-106 [facility] Comment on above: Performed By: #### P OCGLUC ####[facility] Vqqwzemrmb2767[address] [place], [place] [address]Dr. Shahbaz Rogel Glucose [Mass/Vol] 154 mg/dL Critically high 74-106 [facility] Comment on above: Performed By: #### P OCGLUC ####[facility] Fdigmdastv01[address] [place], [place] [address]Dr. Shahbaz Rogel PROF 14(COMP METB)on 022 Albumin [Mass/Vol] 3.5 g/dL Normal 3.4-5.[address] [facility] Comment on above: Performed By: #### B PAIN MANAGEMENT PHYSICIAN, CMP ####[facility] Isgpryijlv7961 [place] [address]Dr. Shahbaz Rogel Albumin/Globulin [Mass ratio] 0.9 {ratio} Normal [facility] Comment on above: Performed By: #### B PAIN MANAGEMENT PHYSICIAN, CMP ####[facility] Gdipuxxtsx8791 [place] [address]Dr. Shahbaz Rogel ALP [Catalytic activity/Vol] 107 U/L Normal 46-[address] [facility] Comment on above: Performed By: #### B PAIN MANAGEMENT PHYSICIAN, CMP ####[facility] Iacexcmthl9280 [place] [address]Dr. Shahbaz Rogel ALT [Catalytic activity/Vol] 18 U/L Normal 14-59 [facility] Comment on above: Performed By: #### B PAIN MANAGEMENT PHYSICIAN, CMP ####[facility] Tbrqallqlb7685 [place] [address]Dr. Shahbaz Rogel Anion gap [Moles/Vol] 14.1 mmol/L Normal [facility] Comment on above: Performed By: #### B PAIN MANAGEMENT PHYSICIAN, CMP ####[facility] Hkeexjlcpa2866 [place] [address]Dr. Shahbaz Rogel AST [Catalytic activity/Vol] 19 U/L Normal 15-37 [facility] Comment on above: Performed By: #### B PAIN MANAGEMENT PHYSICIAN, CMP ####[facility] Qybwahbndo1147[address] [place], [place] [address]Dr. Shahbaz Rogel Bilirubin [Mass/Vol] 0.5 mg/dL Normal 0.2-1.3 [facility] Comment on above: Performed By: #### B PAIN MANAGEMENT PHYSICIAN, CMP ####[facility] Hswqoemptm5532[address] [place], [place] [address]Dr. Shahbaz Rogel Calcium [Mass/Vol] 8.5 mg/dL Normal 8.5-10.1 [facility] Comment on above: Performed By: #### B PAIN MANAGEMENT PHYSICIAN, CMP ####[facility] Rpclenrajr8744 [place] [address]Dr. Shahbaz Rogel Chloride [Moles/Vol] 103 mmol/L Normal 98-107 [facility] Comment on above: Performed By: #### B PAIN MANAGEMENT PHYSICIAN, CMP ####[facility] Rkciukfxna5248[address] [place], [place] [address]Dr. Shahbaz Rogel CO2 [Moles/Vol] 25.4 mmol/L Normal 22.0-30.[address] [facility] Comment on above: Performed By: #### B PAIN MANAGEMENT PHYSICIAN, CMP ####[facility] Ozpphwlbok4546[address] [place], [place] [address]Dr. Shahbaz Rogel Creatinine [Mass/Vol] 1.48 mg/dL Critically high 0.52-1.[address] [facility] Comment on above: Performed By: #### B PAIN MANAGEMENT PHYSICIAN, CMP ####[facility] Jcmnjzqaop5738[address] [place], [place] [address]Dr. Shahbaz Juan F EGFR-AF GERMAN 44 mL/min/1.73m2 Critically low >=[address] [facility] Comment on above: Performed By: #### B PAIN MANAGEMENT PHYSICIAN, CMP ####[facility] Akiwcsvvxo2407[address] [place], [place] [address]Dr. Shahbaz Juan F EGFR-NON AF GERMAN 36 mL/min/1.73m2 Critically low >=[address] [facility] Comment on above: Performed By: #### B PAIN MANAGEMENT PHYSICIAN, CMP ####[facility] Nfyofzmfng8813[address] [place], [place] [address]Dr. Shahbaz Juan F Globulin (S) [Mass/Vol] 3.7 g/dL Normal [facility] Comment on above: Performed By: #### B PAIN MANAGEMENT PHYSICIAN, CMP ####[facility] Dyorncypwu340368 [address] [place], [place] [address]Dr. Shahbaz Juan F Glucose [Mass/Vol] 203 mg/dL Critically high 74-106 [facility] Comment on above: Performed By: #### B PAIN MANAGEMENT PHYSICIAN, CMP ####[facility] Szqghrnuyk5526[address] [place], [place] [address]Dr. Shahbaz Rogel Potassium [Moles/Vol] 3.5 mmol/L Normal 3.4-5.[address] [facility] Comment on above: Performed By: #### B PAIN MANAGEMENT PHYSICIAN, CMP ####[facility] Cgfmlekhds6036[address] [place], [place] [address]Dr. Shahbaz Rogel Protein [Mass/Vol] 7.2 g/dL Normal 6.1-8.2 [facility] Comment on above: Performed By: #### B PAIN MANAGEMENT PHYSICIAN, CMP ####[facility] Jvyoblmwts524168 [address] [place], [place] [address]Dr. Lilajarrod Rogel Sodium [Moles/Vol] 139 mmol/L Normal 137-145 [facility] Comment on above: Performed By: #### B PAIN MANAGEMENT PHYSICIAN, CMP ####[facility] Hwjoqvxbij5345[address] [place], [place] [address]Dr. Shahbaz Rogel Urea nitrogen [Mass/Vol] 17.0 mg/dL Normal 7.0-18.0 [facility] Comment on above: Performed By: #### B PAIN MANAGEMENT PHYSICIAN, CMP ####[facility] Pmnyadewrh2223[address] [place], [place] [address]Dr. Shahbaz Rogel Urea nitrogen/Creatinine [Mass ratio] 11.5 mg/mg Normal [facility] Comment on above: Performed By: #### B PAIN MANAGEMENT PHYSICIAN, CMP ####[facility] Sfjngdulgh850[address] [place], [place] [address]Dr. Shahbaz Rogel BNPon 01-18-2022 Natriuretic peptide B (Bld) [Mass/Vol] 55.0 pg/mL Normal <=900.0 [facility] Comment on above: Performed By: #### C MP, BNP, HSTROPN ####[facility] Ajpqfkxwoc3022[address] [place], [place] [address]Dr. Lilajarrod Juan F CBC W MANUAL DIFFon 01-19-20 22 ATYPICAL LYMPH # 0.12 103/ul Normal [facility] Comment on above: Performed By: #### C BCMAN ####[facility] Vcvptmpink0665[address] [place], [place] [address]Dr. Shahbaz Rogel ATYPICAL LYMPH % 2 % Normal [facility] Comment on above: Performed By: #### C BCMAN ####[facility] Yhfizxxqqe039[address] [place], [place] [address]Dr. Yilan Rogel BAND # 0.0 103/ul Normal 0.0-0.3 [facility] Comment on above: Performed By: #### C BCMAN ####[facility] Btnrgimgwu5369 [place] [address]Dr. Yilan Rogel BAND % 0 % Normal 0-5 [facility] Comment on above: Performed By: #### C BCMAN ####[facility] Ndmjzuvzsl0404 [place] [address]Dr. Yijarrod Rogel BASOM # 0.00 103/ul Normal 0.00-0.10 [facility] Comment on above: Performed By: #### C BCBRICE ####[facility] Mltytevbtv576[address] [place], [place] [address]Dr. Shahbaz Rogel BASOM % 0.0 % Critically low 0.2-2.0 [facility] Comment on above: Performed By: #### C BCBRICE ####[facility] Omsdneirnp10[address] [place], [place] [address]Dr. Yijarrod Rogel BLAST # Normal [facility] Comment on above: Performed By: #### C CAIN ####[facility] Wgytjntvai4[address] [place], [place] [address]Dr. Lilalan Rogel BLAST % Normal [facility] Comment on above: Performed By: #### C BCBRICE ####[facility] Jbokgkzrfq6[address] [place], [place] [address]Dr. Shahbaz Rogel CORRECTED WBC Normal 4.0-11.0 [facility] Comment on above: Performed By: #### C BCBRICE ####[facility] Vnmanloeby136[address] [place], [place] [address]Dr. Shahbaz Rogel EOS # 0.25 103/ul Normal 0.00-0.70 [facility] Comment on above: Performed By: #### C BCMAN ####[facility] Vnqanlmjir454[address] [place], [place] [address]Dr. Shahbaz Rogel EOS% 4.0 % Normal 0.9-7.0 [facility] Comment on above: Performed By: #### C BCBRICE ####[facility] Aruesppqzd8[address] [place], [place] [address]Dr. Shahbaz Rogel HCT 46.8 % Normal 36.0-48.[address] [facility] Comment on above: Performed By: #### C CAIN ####[facility] Cvyfywlwgz7144 [place] [id number]. Shahbaz Rogel HGB 14.9 g/dl Normal 12.0-16.[address] [facility] Comment on above: Performed By: #### C CAIN ####[facility] Gzblrgndky6734 [place] [phone]. Shahbaz Rogel LYMPHM # 0.68 103/ul Critically low 1.20-3.[address] [facility] Comment on above: Performed By: #### C CAIN ####[facility] Mvmihuusim9731 [place] [address]Dr. Shahbaz Rogel LYMPHM% 11.0 % Critically low 20.5-60.[address] [facility] Comment on above: Performed By: #### C CAIN ####[facility] Onknjhiyal5215 [place] [address]Dr. Shahbaz Rogel MCH 27.6 pg Normal 26.7-34.[address] [facility] Comment on above: Performed By: #### Cheri BARLOW ####[facility] Pdbxvjnkyd2647 [place] [address]Dr. Shahbaz Rogel MCHC 31.8 g/dl Normal 29.9-35.[address] [facility] Comment on above: Performed By: #### Cheri BARLOW ####[facility] Vezlpbkdyb9555 [place] [address]Dr. Shahbaz Rogel MCV 86.8 fL Normal 81.0-99.0 [facility] Comment on above: Performed By: #### C CAIN ####[facility] Rqjgacjsmc6024 [place] [address]Dr. Shahbaz Rogel METAMYELOCYTE # Normal [facility] Comment on above: Performed By: #### C CAIN ####[facility] Xlnihoffla1054 [place] [address]Dr. Shahbaz Rogel METAMYELOCYTE % Normal [facility] Comment on above: Performed By: #### C CAIN ####[facility] Eqdxmpegqp4226 [place] [id number]. Shahbaz Rogel MONOM# 0.19 103/ul Critically low 0.30-0.[address] [facility] Comment on above: Performed By: #### C CAIN ####[facility] Aikngzpzgz4374 [place] [id number]. Shahbaz Rogel MONOM% 3.0 % Normal 1.7-12.0 [facility] Comment on above: Performed By: #### C CAIN ####[facility] Tnddznbcrq9072 [place] [phone]. Shahbaz Rogel MPV 9.6 fL Normal 9.5-13.5 [facility] Comment on above: Performed By: #### C CAIN ####[facility] Bnfosrjftr3048 [place] [id number]. Shahbaz Rogel MYELOCYTE # Normal [facility] Comment on above: Performed By: #### Cheri BARLOW ####[facility] Byubgyvisw1869 [place] [id number]. Shahbaz Rogel MYELOCYTE % Normal [facility] Comment on above: Performed By: #### Cheri BARLOW ####[facility] Yplfecytjp[address] [place], [place] [address]Dr. Shahbaz Rogel NRBC Normal [facility] Comment on above: Performed By: #### Cheri BARLOW ####[facility] Usmjvqwrgz7636 [place] [phone]. Shahbaz Rogel PLT 203 103/ul Normal 150-450 [facility] Comment on above: Performed By: #### C CAIN ####[facility] Acnkariefb8489 [place] [id number]. Shahbaz Rogel RBC 5.39 106/ul Normal 4.20-5.40 [facility] Comment on above: Performed By: #### C CAIN ####[facility] Zwudnahvnt1682 [place] [id number]. Shahbaz Rogel RDW 13.7 % Normal 11.0-15.0 [facility] Comment on above: Performed By: #### Cehri BARLOW ####[facility] Qbyxyoiiui2007 [place], [place] [address]Lb. Shahbaz Rogel SEG # 4.96 103/ul Normal 1.40-6.50 [facility] Comment on above: Performed By: #### C BCMAN ####[facility] Jwhscbviiq9060 [place], [place] [address]Vf. Shahbaz Rogel SEG % 80.0 % Critically high 43.0-75.[address] [facility] Comment on above: Performed By: #### C BCMAN ####[facility] Fjnmlfmbuh3432 [place], [place] [address]Ik. Shahbaz Rogel WBC 6.2 103/ul Normal 4.0-11.[address] [facility] Comment on above: Performed By: #### C BCMAN ####[facility] Mtngprniln5262 [place], [place] [address]Ye. Shahbaz Rogel CULTURE BLOODon 01-18-2022 Microscopic examination of blood, culture Culture Observations: No growth at 5 days. [address] [facility] Comment on above: Performed By: #### B LDCX2 ####[facility] Ksvmafvccr8962 [place], [place] [address]Ez. Shahbaz Rogel Microscopic examination of blood, culture Culture Observations: No growth at [address] [facility] Comment on above: Performed By: #### B LDCX1 ####[facility] Syckwzdrov5767 [place], [place] [address]Bv. Shahbaz Rogel Covid-19 PCR (CVDTB)on 12-31 SARS-CoV-2 [...] for this test is supported by the [employer] of [employer] and Human Service's (HHS's) declaration [...] Performed By: #### C VDTBH ####[facility] Kxdpbbdzua[address] [place] [address]. Shahbaz Rogel D-DIMERon 01-18-2022 D-DIMER 0.29 mg/L FEU Normal 0.19-0.50 [facility] Comment on above: Performed By: #### D DIM ####[facility] Pczbneynfo[address] [place] [address]. Lilajarrod [facility] D-DIMER COMMENTS SEE BELOW Normal [facility] [...] Performed By: #### D DIM ####[facility] Yaabpangcp[address] [place] [address]. jarrod Rogel INFLUENZA A AND B AGon 01-18 INFLUANEGH SEE BELOW Normal [facility] Comment on above: Result Comment: Nega tive for Flu A protein angiten. Infection due to Flu A cannot be ruled out. Flu A angiten in the sample may be below the detection limit of the test. Performed By: #### I NFLUAB ####[facility] Aqanlfmntx[address] [place] [address]. Shahbaz [facility] INFLUBNEGH SEE BELOW Normal [facility] Comment on above: Result Comment: Nega tive for Flu B protein antigen. Infection due to Flu B cannot be ruled out. Flu B antigen in the sample may be below the detection limit of the test. Performed By: #### I NFLUAB ####[facility] Ruzlbohvwl808[address] [place], [place] [address]Dr. Shahbaz Rogel INFLUENZA A AG Negative Normal NEGATIVE SEE COMMENT [facility] Comment on above: Performed By: #### I NFLUAB ####[facility] Suoelwezud5[address] [place], [place] [address]Dr. Shahbaz Rogel INFLUENZA B AG Negative Normal NEGATIVE SEE COMMENT [facility] Comment on above: Performed By: #### I NFLUAB ####[facility] Hyhcvzzcnb2850[address] [place], [place] [address]Dr. Shahbaz Rogel INTERNAL CONTROLS Within Normal Limits Normal Wi thin Normal Limits [facility] Comment on above: Performed By: #### I NFLUAB ####[facility] Lbbfplasjn17[address] [place], [place] [address]Dr. Shahbaz Rogel LACTATE/LACTIC ACIDon 2021 Lactate [Moles/Vol] 1.0 mmol/L Normal 0.7-2.[address] [facility] Comment on above: Performed By: #### L ACT ####[facility] Nwxbfoxrzh40[address] [place], [place] [address]Dr. Shahbaz Rogel PROF 14(COMP METB)on 022 Albumin [Mass/Vol] 3.8 g/dL Normal 3.4-5.[address] [facility] Comment on above: Performed By: #### C MP, BNP, HSTROPN ####[facility] Esymcbgfyf12[address] [place], [place] [address]Dr. Shahbaz Rogel Albumin/Globulin [Mass ratio] 1.0 {ratio} Normal [facility] Comment on above: Performed By: #### C MP, BNP, HSTROPN ####[facility] Cogvfdokwh20[address] [place], [place] [address]Dr. Shahbaz Rogel ALP [Catalytic activity/Vol] 116 U/L Normal 46-116 [facility] Comment on above: Performed By: #### C MP, BNP, HSTROPN ####[facility] Flvnetcvyb7348 [place] [address]Dr. Shahbaz Rogel ALT [Catalytic activity/Vol] 16 U/L Normal 14-59 [facility] Comment on above: Performed By: #### C MP, BNP, HSTROPN ####[facility] Vwymxgvvin9594 [place] [address]Dr. Shahbaz Rogel Anion gap [Moles/Vol] 9.4 mmol/L Normal [facility] Comment on above: Performed By: #### C MP, BNP, HSTROPN ####[facility] Fyzvhdqucw3011 [place] [address]Dr. Shahbaz Rogel AST [Catalytic activity/Vol] 19 U/L Normal 15-37 [facility] Comment on above: Performed By: #### C MP, BNP, HSTROPN ####[facility] Ubrnjnctsq2974 [place] [address]Dr. Shahbaz Rogel Bilirubin [Mass/Vol] 0.5 mg/dL Normal 0.2-1.3 [facility] Comment on above: Performed By: #### C MP, BNP, HSTROPN ####[facility] [address] [place], [place] [address]Dr. Shahbaz Rogel Calcium [Mass/Vol] 8.9 mg/dL Normal 8.5-10.1 [facility] Comment on above: Performed By: #### C MP, BNP, HSTROPN ####[facility] [address] [place] [address]Dr. Shahbaz Rogel Chloride [Moles/Vol] 104 mmol/L Normal 98-107 [facility] Comment on above: Performed By: #### C MP, BNP, HSTROPN ####[facility] [address] [place], [place] [address]Dr. Shahbaz Rogel CO2 [Moles/Vol] 27.2 mmol/L Normal 22.0-30.0 [facility] Comment on above: Performed By: #### C MP, BNP, HSTROPN ####[facility] [address] [place], [place] [address]Dr. Shahbaz Rogel Creatinine [Mass/Vol] 0.99 mg/dL Normal 0.52-1.[address] [facility] Comment on above: Performed By: #### C MP, BNP, HSTROPN ####[facility] [address] [place] [address]Dr. Shahbaz Rogel EGFR-AF GERMAN >60 Normal >=60 [facility] Comment on above: Performed By: #### C MP, BNP, HSTROPN ####[facility] [address] [place] [address]Dr. Shahbaz Rogel EGFR-NON AF GERMAN 58 mL/min/1.73m2 Critically low >=60 [facility] Comment on above: Performed By: #### C MP, BNP, HSTROPN ####[facility] [address] [place], [place] [address]Dr. Shahbaz Rogel Globulin (S) [Mass/Vol] 3.8 g/dL Normal [facility] Comment on above: Performed By: #### C MP, BNP, HSTROPN ####[facility] [address] [place], [place] [address]Dr. Shahbaz Rogel Glucose [Mass/Vol] 104 mg/dL Normal 74-106 [facility] Comment on above: Performed By: #### C MP, BNP, HSTROPN ####[facility] [address] [place] [address]Dr. Shahbaz Rogel Potassium [Moles/Vol] 3.6 mmol/L Normal 3.4-5.0 [facility] Comment on above: Performed By: #### C MP, BNP, HSTROPN ####[facility] [address] [place], [place] [address]Dr. Shahbaz Rogel Protein [Mass/Vol] 7.6 g/dL Normal 6.1-8.2 [facility] Comment on above: Performed By: #### C MP, BNP, HSTROPN ####[facility] [address] [place] [address]Dr. Shahbaz Rogel Sodium [Moles/Vol] 137 mmol/L Normal 137-145 [facility] Comment on above: Performed By: #### C MP, BNP, HSTROPN ####[facility] [address] [place] [id number]. Shahbaz Rogel Urea nitrogen [Mass/Vol] 9.0 mg/dL Normal 7.0-18.[address] [facility] Comment on above: Performed By: #### C MP, BNP, HSTROPN ####[facility] [address] [place] [id number]. Shahbaz Rogel Urea nitrogen/Creatinine [Mass ratio] 9.1 mg/mg Normal [facility] Comment on above: Performed By: #### C MP, BNP, HSTROPN ####[facility] [address] [place] [address]Dr. Shahbaz Rogel TROPONIN, HIGH SENSITIVITYon 01-18-2022 HSTROP 6.4 pg/mL Normal 4.0-35.[address] [facility] Comment on above: Result Comment: CUT- OFF POINTS HAVE BEEN ESTABLISHED BASED ON THE FOURTH UNIVERSAL DEFINITIONS OF MYOCARDIALINFARCTION. THE UPPER REFERENCE LIMIT (URL) OF TROPONIN, DEFINED THE 99TH PERCENTILE OFcTnI DISTRIBUTION IN A REFERENCE POPULATION, HAS BEEN CONFIRMED THE DECISION THRESHOLDFOR NE DIAGNOSIS. Performed By: #### C MP, BNP, HSTROPN ####[facility] [address] [place] [address]Dr. Shahbaz Rogel XR CHEST 2 Von 01-18-2022 XR CHEST 2 V Normal [facility] URINALYSIS REFLEXon 04-04-20 20 Appearance (U) CLEAR Normal CLEAR [facility] Comment on above: Order Comment: No: D o not add to previous draw Performed By: #### 1 0070, 13530, 62073, 41216, 63201, 97903 #### [facility] [address] [place] [address], [facility] Bilirubin [Mass/Vol] Negative Normal NEGATIVE [facility] Comment on above: Order Comment: No: D o not add to previous draw Performed By: #### 1 0070, 24569, 48904, 72001, 45567, 60462 #### [facility] [address] [place] [address], [place] BLOOD Negative Normal NEGATIVE [facility] Comment on above: Order Comment: No: D o not add to previous draw Performed By: #### 1 0070, 36765, 18572, 89283, 26661, 19816 #### [facility] [address] [place] [address], [place] Color (U) YELLOW Normal YELLOW [facility] Comment on above: Order Comment: No: D o not add to previous draw Performed By: #### 1 0070, 49236, 88485, 05669, 87295, 29275 #### [facility] [address] [place] [address], [place] Glucose [Mass/Vol] Negative Normal NEGATIVE [facility] Comment on above: Order Comment: No: D o not add to previous draw Performed By: #### 1 0070, 61627, 78867, 04438, 94889, 73612 #### [facility] [address] [place] [address], [place] KETONE Negative Normal NEGATIVE [facility] Comment on above: Order Comment: No: D o not add to previous draw Performed By: #### 1 0070, 26467, 22027, 71705, 11509, 40024 #### [facility] [address] [place] [address], [place] LEUK ELIU Negative Normal NEGATIVE [facility] Comment on above: Order Comment: No: D o not add to previous draw Performed By: #### 1 0070, 87083, 31178, 16878, 56647, 54805 #### [facility] [address] [place] [address], [place] MICRO NOT DONE Normal [facility] Comment on above: Order Comment: No: D o not add to previous draw Result Comment: Micr oscopics not performed on urines with negative chemical reactions unless requested in original order Performed By: #### 1 0070, 96916, 68939, 44866, 88739, 51124 #### [facility] [address] [place] [address], [facility] Nitrite Ql (U) Negative Normal NEGATIVE [facility] Comment on above: Order Comment: No: D o not add to previous draw Performed By: #### 1 0070, 74909, 22916, 18671, 87224, 63133 #### [facility] [address] [facility] [place] [address], [facility] pH (Bld) 5.0 Normal 5.0-8.0 [facility] Comment on above: Order Comment: No: D o not add to previous draw Performed By: #### 1 0070, 30501, 64597, 33186, 28355, 22751 #### [facility] [address] [place] [address], [facility] Protein (U) [Mass/Vol] Negative Normal NEGATIVE [facility] Comment on above: Order Comment: No: D o not add to previous draw Performed By: #### 1 0070, 50593, 86653, 81318, 55142, 86171 #### [facility] [address] [place] [address], [facility] SPEC GRAV 1.012 Low 1.015-1.02 0 [facility] Comment on above: Order Comment: No: D o not add to previous draw Performed By: #### 1 0070, 87769, 69575, 96630, 18198, 65040 #### [facility] [address] [place] [address], [facility] BASIC METABOLIC PANELon 07-0 2-2020 Calcium [Mass/Vol] 8.4 mg/dL Low 8.6-10.3 [facility] Comment on above: Order Comment: No: D o not add to previous draw Performed By: #### 1 0070, 67202, 80080, 51066, 83418, 62787 #### [facility] [address] [place] [address], [place] Chloride [Moles/Vol] 101 mmol/L Normal 98-107 [facility] Comment on above: Order Comment: No: D o not add to previous draw Performed By: #### 1 0070, 83105, 58399, 71370, 97700, 92419 #### [facility] [address] [place] [address], [facility] CO2 [Moles/Vol] 29 mmol/L Normal 21-31 [facility] Comment on above: Order Comment: No: D o not add to previous draw Performed By: #### 1 0070, 28701, 02287, 93528, 38216, 78842 #### [facility] [address] [place] [address], [facility] Creatinine [Mass/Vol] 0.79 mg/dL Normal 0.60-1.20 [facility] Comment on above: Order Comment: No: D o not add to previous draw Performed By: #### 1 0070, 36178, 71285, 56296, 49253, 66919 #### [facility] [address] [place] [address], [facility] GFR/1.73 sq M predicted among blacks MDRD (S/P/Bld) [Vol rate/Area] mL/min/{1.73_m2} Normal >60 [facility] Comment on above: Order Comment: No: D o not add to previous draw Performed By: #### 1 0070, 87455, 80796, 91932, 07484, 91731 #### [facility] [address] [place] [address], [place] GFR/1.73 sq M predicted among non-blacks MDRD (S/P/Bld) [Vol rate/Area] mL/min/{1.73_m2} Normal >60 [facility] Comment on above: Order Comment: No: D o not add to previous draw Performed By: #### 1 0070, 89087, 31044, 50382, 80019, 20982 #### [facility] [address] [place] [address], [facility] Glucose [Mass/Vol] 91 mg/dL Normal 70-100 [facility] Comment on above: Order Comment: No: D o not add to previous draw Performed By: #### 1 0070, 52542, 96115, 25547, 12017, 78863 #### [facility] [address] [place] [address], [facility] Potassium [Moles/Vol] 3.9 mmol/L Normal 3.5-5.1 [facility] Comment on above: Order Comment: No: D o not add to previous draw Performed By: #### 1 0070, 33178, 96570, 37186, 79503, 02568 #### [facility] [address] [place] [address], [facility] Sodium [Moles/Vol] 133 mmol/L Low 136-145 [facility] Comment on above: Order Comment: No: D o not add to previous draw Performed By: #### 1 0070, 70501, 99090, 42444, 60719, 89359 #### [facility] [address] [place] [address], [facility] Urea nitrogen [Mass/Vol] 10 mg/dL Normal 7-25 [facility] Comment on above: Order Comment: No: D o not add to previous draw Performed By: #### 1 0070, 20063, 40475, 57488, 35434, 38148 #### [facility] [address] [facility] [place] [address], [facility] CBC W/DIFFon 04-02-2020 ABS BASOPHILS 0.0 10*3/uL Normal 0.0-0.2 [facility] Comment on above: Order Comment: No: D o not add to previous draw Performed By: #### 1 0070, 99892, 87596, 82308, 82324, 17608 #### [facility] [address] [facility] [place] [address], [facility] ABS IMM GRANS 0.0 10*3/uL Normal 0.0-0.2 [facility] Comment on above: Order Comment: No: D o not add to previous draw Performed By: #### 1 0070, 94518, 15240, 12333, 16201, 62917 #### [facility] [address] [place] [address], [facility] ABS NEUTROPHILS 4.5 10*3/uL Normal 1.6-7.6 [facility] Comment on above: Order Comment: No: D o not add to previous draw Performed By: #### 1 0070, 65555, 06879, 32309, 46912, 68033 #### [facility] [address] [place] [address], [facility] Basophils/100 WBC (Bld) 0.2 % Normal 0.0-1.0 [facility] Comment on above: Order Comment: No: D o not add to previous draw Performed By: #### 1 0070, 81858, 73880, 58277, 40850, 91778 #### [facility] [address] [place] [address], [facility] Eosinophils (Bld) [#/Vol] 0.2 10*3/uL Normal 0.0-0.5 [facility] Comment on above: Order Comment: No: D o not add to previous draw Performed By: #### 1 0070, 97973, 95359, 47916, 29482, 77636 #### [facility] [address] [facility] [place] [address], [facility] Eosinophils/100 WBC (Bld) 3.6 % Normal 0.0-6.0 [facility] Comment on above: Order Comment: No: D o not add to previous draw Performed By: #### 1 0070, 32424, 94160, 97836, 33693, 77888 #### [facility] [address] [place] [address], [place] Erythrocyte distribution width (RBC) [Ratio] 12.7 % Normal 11.5-15.0 [facility] Comment on above: Order Comment: No: D o not add to previous draw Performed By: #### 1 0070, 13814, 55976, 69082, 93724, 44850 #### [facility] [address] [place] [id number], [facility] Hematocrit (Bld) [Volume fraction] 42.9 % Normal 36.0-45.0 [facility] Comment on above: Order Comment: No: D o not add to previous draw Performed By: #### 1 0070, 97503, 46528, 63131, 92402, 55191 #### [facility] [address] [facility] [place] [address], [facility] Hemoglobin (Bld) [Mass/Vol] 13.5 g/dL Normal 12.0-15.0 [facility] Comment on above: Order Comment: No: D o not add to previous draw Performed By: #### 1 0070, 95481, 82936, 18995, 23679, 59427 #### [facility] [address] [facility] [place] [address], [facility] IMMATURE GRANS 0.3 % Normal 0.0-1.0 [facility] Comment on above: Order Comment: No: D o not add to previous draw Performed By: #### 1 0070, 14949, 80772, 98109, 94803, 31875 #### [facility] [address] [facility] [place] [address], [facility] Lymphocytes (Bld) [#/Vol] 1.1 10*3/uL Low 1.2-4.0 [facility] Comment on above: Order Comment: No: D o not add to previous draw Performed By: #### 1 0070, 76775, 43063, 07911, 47005, 39163 #### [facility] [address] [place] [address], [place] Lymphocytes/100 WBC (Bld) 18.0 % Low 20.0-45.0 [facility] Comment on above: Order Comment: No: D o not add to previous draw Performed By: #### 1 0070, 14741, 75438, 35409, 46345, 93603 #### [facility] [address] [place] [address], [facility] MCH (RBC) [Entitic mass] 27.4 pg Normal 27.0-33.0 [facility] Comment on above: Order Comment: No: D o not add to previous draw Performed By: #### 1 0070, 42532, 20425, 43838, 25361, 58217 #### [facility] [address] [place] [address], [facility] MCHC (RBC) [Mass/Vol] 31.5 g/dL Low 32.0-35.0 [facility] Comment on above: Order Comment: No: D o not add to previous draw Performed By: #### 1 0070, 84533, 80779, 24489, 28950, 22788 #### [facility] [address] MCV (RBC) [Entitic vol] 87.0 fL Normal 82.0-98.0 [facility] Comment on above: Order Comment: No: D o not add to previous draw Performed By: #### 1 0070, 87026, 34087, 07005, 46473, 46567 #### [facility] [address] [place] [address], [facility] Monocytes (Bld) [#/Vol] 0.3 10*3/uL Normal 0.1-1.0 [facility] Comment on above: Order Comment: No: D o not add to previous draw Performed By: #### 1 0070, 45374, 80536, 78248, 09005, 36714 #### [facility] [address] [place] [address], [facility] MONOS 5.5 % Normal 5.0-12.0 [facility] Comment on above: Order Comment: No: D o not add to previous draw Performed By: #### 1 0070, 80591, 23162, 19286, 89208, 96017 #### [facility] [address] [place] [address], [facility] Neutrophils/100 WBC (Bld) 72.4 % High 40.0-72.0 [facility] Comment on above: Order Comment: No: D o not add to previous draw Performed By: #### 1 0070, 99372, 31171, 85671, 57767, 18010 #### [facility] [address] [place] [address], [facility] Nucleated RBC/100 WBC (Bld) [Ratio] 0 % Normal 0-0 [facility] Comment on above: Order Comment: No: D o not add to previous draw Performed By: #### 1 0070, 58077, 86907, 64272, 84590, 72627 #### [facility] [address] [place] [address], [facility] PLAT CNT 264 10*3/uL Normal 150-400 [facility] Comment on above: Order Comment: No: D o not add to previous draw Performed By: #### 1 0070, 10936, 83872, 33473, 81898, 49224 #### [facility] [address] [place] [address], [facility] RBC (Bld) [#/Vol] 4.93 10*6/uL Normal 3.80-5.00 [facility] Comment on above: Order Comment: No: D o not add to previous draw Performed By: #### 1 0070, 61653, 25976, 40291, 71481, 19976 #### [facility] [address] [facility] [place] [address], [facility] WBC (Bld) [#/Vol] 6.17 10*3/uL Normal 4.00-10.60 [facility] Comment on above: Order Comment: No: D o not add to previous draw Performed By: #### 1 0070, 41698, 18727, 61053, 70115, 81900 #### [facility] [address] [place] [address], [facility] MAGNESIUM BLOODon 04-02-2020 Magnesium [Mass/Vol] 2.0 mg/dL Normal 1.9-2.7 [facility] Comment on above: Order Comment: No: D o not add to previous draw Performed By: #### 1 0070, 58317, 11354, 67301, 38707, 57165 #### [facility] [address] [place] [address], [facility] PHOSPHORUS BLOODon 0 Phosphate [Mass/Vol] 3.1 mg/dL Normal 2.5-5.0 [facility] Comment on above: Order Comment: No: D o not add to previous draw Performed By: #### 1 0070, 77166, 25706, 72941, 84479, 48922 #### [facility] [address] [place] [address], [facility] POC GLUCOSE LABon 04-02-2020 Glucose [Mass/Vol] 134 mg/dL High 70-100 [facility] Comment on above: Performed By: #### 1 0070, 80036, 16358, 96121, 17082, 74434 #### [facility] [address] [place] [address], [facility] UFH HEPARIN ASSAYon 04-02-20 20 UNFRACTIONATED HEPARIN 0.91 IU/mL Critically high 0.30-0.7 0 [facility] Comment on above: Result Comment: Violet roxaban and Apixaban will interfere with the anti Xa assay used to monitor UFH and LMWH. RESULTS CHECKED AND CALLED. ACCURATELY READ BACK BY LYNN POLANCO RN @ [id number] Performed By: #### 1 0070, 28648, 73075, 61398, 71392, 58412 #### [facility] [address] [place] [address], [facility] ALBUMIN BLOODon 04-01-2020 Albumin [Mass/Vol] 3.0 g/dL Low 3.5-5.7 [facility] Comment on above: Performed By: #### 1 0070, 75016, 34876, 57335, 64895, 46507 #### [facility] [address] [place] [address], [facility] BASIC METABOLIC PANELon 07-0 Calcium [Mass/Vol] 8.1 mg/dL Low 8.6-10.3 [facility] Comment on above: Order Comment: No: D o not add to previous draw Performed By: #### 1 0070, 36193, 30544, 74216, 92288, 10181 #### [facility] [address] [place] [address], [facility] Chloride [Moles/Vol] 105 mmol/L Normal 98-107 [facility] Comment on above: Order Comment: No: D o not add to previous draw Performed By: #### 1 0070, 68005, 73907, 23209, 41796, 95784 #### [facility] [address] [place] [address], [place] CO2 [Moles/Vol] 26 mmol/L Normal 21-31 [facility] Comment on above: Order Comment: No: D o not add to previous draw Performed By: #### 1 0070, 36274, 44438, 71258, 05199, 55892 #### [facility] [address] [place] [address], [place] Creatinine [Mass/Vol] 0.65 mg/dL Normal 0.60-1.20 [facility] Comment on above: Order Comment: No: D o not add to previous draw Performed By: #### 1 0070, 24091, 30668, 61171, 89316, 20842 #### [facility] [address] [place] [address], [place] GFR/1.73 sq M predicted among blacks MDRD (S/P/Bld) [Vol rate/Area] mL/min/{1.73_m2} Normal >60 [facility] Comment on above: Order Comment: No: D o not add to previous draw Performed By: #### 1 0070, 08430, 62127, 75302, 51969, 91253 #### [facility] [address] [place] [address], [place] GFR/1.73 sq M predicted among non-blacks MDRD (S/P/Bld) [Vol rate/Area] mL/min/{1.73_m2} Normal >60 [facility] Comment on above: Order Comment: No: D o not add to previous draw Performed By: #### 1 0070, 09258, 26846, 72686, 65933, 04554 #### [facility] [address] [place] [address], [place] Glucose [Mass/Vol] 87 mg/dL Normal 70-100 [facility] Comment on above: Order Comment: No: D o not add to previous draw Performed By: #### 1 0070, 67848, 55943, 38346, 55222, 22313 #### [facility] [address] [place] [address], [place] Potassium [Moles/Vol] 4.3 mmol/L Normal 3.5-5.1 [facility] Comment on above: Order Comment: No: D o not add to previous draw Performed By: #### 1 0070, 14249, 65441, 18687, 97557, 60221 #### [facility] [address] [place] [address], [place] Sodium [Moles/Vol] 136 mmol/L Normal 136-145 [facility] Comment on above: Order Comment: No: D o not add to previous draw Performed By: #### 1 0070, 84204, 62469, 91862, 87826, 07807 #### [facility] [address] [place] [address], [place] Urea nitrogen [Mass/Vol] 8 mg/dL Normal 7-25 [facility] Comment on above: Order Comment: No: D o not add to previous draw Performed By: #### 1 0070, 48597, 06905, 54470, 76001, 76394 #### [facility] [address] CBC W/DIFFon 04-01-2020 ABS BASOPHILS 0.0 10*3/uL Normal 0.0-0.2 [facility] Comment on above: Order Comment: No: D o not add to previous draw Performed By: #### 1 0070, 84744, 41944, 61364, 03920, 95180 #### [facility] [address] ABS IMM GRANS 0.0 10*3/uL Normal 0.0-0.2 [facility] Comment on above: Order Comment: No: D o not add to previous draw Performed By: #### 1 0070, 45150, 25132, 06780, 83609, 13723 #### [facility] [address] ABS NEUTROPHILS 3.4 10*3/uL Normal 1.6-7.6 [facility] Comment on above: Order Comment: No: D o not add to previous draw Performed By: #### 1 0070, 37305, 37680, 19575, 75755, 25966 #### [facility] [address] [facility]. [address] Basophils/100 WBC (Bld) 0.2 % Normal 0.0-1.0 [facility] Comment on above: Order Comment: No: D o not add to previous draw Performed By: #### 1 0070, 45411, 99391, 40513, 12261, 34827 #### [facility] [address] [place] [address], [facility] Eosinophils (Bld) [#/Vol] 0.1 10*3/uL Normal 0.0-0.5 [facility] Comment on above: Order Comment: No: D o not add to previous draw Performed By: #### 1 0070, 92540, 37867, 46283, 61094, 68044 #### [facility] [address] [place] [address], [facility] Eosinophils/100 WBC (Bld) 2.6 % Normal 0.0-6.0 [facility] Comment on above: Order Comment: No: D o not add to previous draw Performed By: #### 1 0070, 12534, 09665, 63754, 85655, 62274 #### [facility] [address] [place] [address], [facility] Erythrocyte distribution width (RBC) [Ratio] 13.0 % Normal 11.5-15.0 [facility] Comment on above: Order Comment: No: D o not add to previous draw Performed By: #### 1 0070, 53062, 99117, 73713, 72563, 92780 #### [facility] [address] [place] [address], [facility] Hematocrit (Bld) [Volume fraction] 40.9 % Normal 36.0-45.0 [facility] Comment on above: Order Comment: No: D o not add to previous draw Performed By: #### 1 0070, 21838, 55034, 48132, 76168, 96853 #### [facility] [address] [place] [address], [facility] Hemoglobin (Bld) [Mass/Vol] 12.8 g/dL Normal 12.0-15.0 [facility] Comment on above: Order Comment: No: D o not add to previous draw Performed By: #### 1 0070, 80579, 38711, 09854, 34609, 91950 #### [facility] [address] [place] [address], [facility] IMMATURE GRANS 0.6 % Normal 0.0-1.0 [facility] Comment on above: Order Comment: No: D o not add to previous draw Performed By: #### 1 0070, [id number], 79477, 63256, 09638, 27089 #### [facility] [address] [place] [address], [facility] Lymphocytes (Bld) [#/Vol] 1.2 10*3/uL Normal 1.2-4.0 [facility] Comment on above: Order Comment: No: D o not add to previous draw Performed By: #### 1 0070, [id number], 41038, 72282, 90008, 20081 #### [facility] [address] [place] [address], [facility] [facility] Lymphocytes/100 WBC (Bld) 23.7 % Normal 20.0-45.0 [facility] Comment on above: Order Comment: No: D o not add to previous draw Performed By: #### 1 0070, 59246, 38392, 48809, 91773, 94131 #### [facility] [address] [place] [address], [facility] MCH (RBC) [Entitic mass] 27.4 pg Normal 27.0-33.0 [facility] Comment on above: Order Comment: No: D o not add to previous draw Performed By: #### 1 0070, 69454, 03930, 00409, 37830, 51624 #### [facility] [address] [place] [address], [facility] MCHC (RBC) [Mass/Vol] 31.3 g/dL Low 32.0-35.0 [facility] Comment on above: Order Comment: No: D o not add to previous draw Performed By: #### 1 0070, 08648, 93416, 42888, 14482, 35046 #### [facility] [address] [place] [address], [facility] MCV (RBC) [Entitic vol] 87.6 fL Normal 82.0-98.0 [facility] Comment on above: Order Comment: No: D o not add to previous draw Performed By: #### 1 0070, 73272, 34523, 11431, 81767, 86388 #### [facility] [address] [facility] [address], [facility] Monocytes (Bld) [#/Vol] 0.3 10*3/uL Normal 0.1-1.0 [facility] Comment on above: Order Comment: No: D o not add to previous draw Performed By: #### 1 0070, 83106, 88570, 37754, 60807, 00601 #### [facility] [address] MONOS 5.4 % Normal 5.0-12.0 [facility] Comment on above: Order Comment: No: D o not add to previous draw Performed By: #### 1 0070, 58898, 71447, 94825, 37592, 26513 #### [facility] [address] Neutrophils/100 WBC (Bld) 67.5 % Normal 40.0-72.0 [facility] Comment on above: Order Comment: No: D o not add to previous draw Performed By: #### 1 0070, 43450, 06643, 80687, 63530, 66513 #### [facility] [address] Nucleated RBC/100 WBC (Bld) [Ratio] 0 % Normal 0-0 [facility] Comment on above: Order Comment: No: D o not add to previous draw Performed By: #### 1 0070, 28376, 33085, 37096, 03128, 56336 #### [facility] [address] [place] [address], [facility] PLAT CNT 237 10*3/uL Normal 150-400 [facility] Comment on above: Order Comment: No: D o not add to previous draw Performed By: #### 1 0070, 65672, 60597, 39682, 94782, 40769 #### [facility] [address] [facility] [place] [address], [facility] RBC (Bld) [#/Vol] 4.67 10*6/uL Normal 3.80-5.00 [facility] Comment on above: Order Comment: No: D o not add to previous draw Performed By: #### 1 0070, 70434, 62287, 33182, 96397, 05354 #### [facility] [address] [facility] [place] [address], [facility] WBC (Bld) [#/Vol] 4.98 10*3/uL Normal 4.00-10.60 [facility] Comment on above: Order Comment: No: D o not add to previous draw Performed By: #### 1 0070, 45065, 32930, 72737, 72030, 55498 #### [facility] [address] [place], [place] [id number] [place] [address] CHEST AND LATERALon 04-01-20 CHEST AND LATERAL [facility] Department of Radiology [address] [place] [id number] Patient Name: EMIGDIO APODACA : 1965 Sex: F Age: Race: White Pt. Location: [id number] Patient Status: I Ordered Date: 04/01/2020 7:00:00 [...] reports Electronically signed: Shari Salcedo. Transcribed by: [email or web address], User Resident: ANNE VEGA Electronically Signed by: SHARI SALCEDO @ 04/01/2020 10:12 AM I personally read this/these film(s) with this resident Normal [facility] Comment on above: Order Comment: No: D o not add to previous draw MAGNESIUM BLOODon 04-01-2020 Magnesium [Mass/Vol] 2.1 mg/dL Normal 1.9-2.7 [facility] Comment on above: Order Comment: No: D o not add to previous draw Performed By: #### 1 0070, 59739, 41790, 06096, 31024, 35649 #### [facility] [address] [facility] [place] [address], [facility] APTTon 03-31-2020 aPTT Coag (Bld) [Time] 28.3 s Normal 25.0-35.0 [facility] Comment on above: Order Comment: No: [...] THIS PURPOSE. Performed By: #### 1 0070, 70896, 49545, 09032, 32205, 65304 #### [facility] [address] [place] [address], [facility] BASIC METABOLIC PANELon 06-3 0-2020 Calcium [Mass/Vol] 7.8 mg/dL Low 8.6-10.3 [facility] Comment on above: Order Comment: No: D o not add to previous draw Performed By: #### 1 0070, 71338, 09561, 35512, 60875, 88039 #### [facility] [address] [place] [address], [facility] Chloride [Moles/Vol] 108 mmol/L High 98-107 [facility] Comment on above: Order Comment: No: D o not add to previous draw Performed By: #### 1 0070, 79624, 20488, 06726, 41518, 35138 #### [facility] [address] [place] [address], [facility] CO2 [Moles/Vol] 26 mmol/L Normal 21-31 [facility] Comment on above: Order Comment: No: D o not add to previous draw Performed By: #### 1 0070, 39458, 85977, 69162, 37574, 13471 #### [facility] [address] [place] [address], [facility] Creatinine [Mass/Vol] 0.76 mg/dL Normal 0.60-1.20 [facility] Comment on above: Order Comment: No: D o not add to previous draw Performed By: #### 1 0070, 32610, 54275, 28293, 01852, 90044 #### [facility] [address] [place] [address], [place] GFR/1.73 sq M predicted among blacks MDRD (S/P/Bld) [Vol rate/Area] mL/min/{1.73_m2} Normal >60 [facility] Comment on above: Order Comment: No: D o not add to previous draw Performed By: #### 1 0070, 38856, 76477, 55536, 53691, 21976 #### [facility] [address] [place] [address], [place] GFR/1.73 sq M predicted among non-blacks MDRD (S/P/Bld) [Vol rate/Area] mL/min/{1.73_m2} Normal >60 [facility] Comment on above: Order Comment: No: D o not add to previous draw Performed By: #### 1 0070, 11976, 06543, 67687, 25764, 12208 #### [facility] [address] [place] [address], [place] Glucose [Mass/Vol] 97 mg/dL Normal 70-100 [facility] Comment on above: Order Comment: No: D o not add to previous draw Performed By: #### 1 0070, 93217, 26960, 93109, 50647, 10951 #### [facility] [address] [place] [address], [place] Potassium [Moles/Vol] 3.2 mmol/L Low 3.5-5.1 [facility] Comment on above: Order Comment: No: D o not add to previous draw Performed By: #### 1 0070, 93981, 13646, 33692, 44905, 31089 #### [facility] [address] [place] [address], [place] Sodium [Moles/Vol] 140 mmol/L Normal 136-145 [facility] Comment on above: Order Comment: No: D o not add to previous draw Performed By: #### 1 0070, 95383, 34103, 65880, 69557, 10731 #### [facility] [address] Urea nitrogen [Mass/Vol] 15 mg/dL Normal 7-25 [facility] Comment on above: Order Comment: No: D o not add to previous draw Performed By: #### 1 0070, 42905, 88949, 39133, 78910, 84894 #### [facility] [address] CBC W/DIFFon 03-31-2020 ABS BASOPHILS 0.0 10*3/uL Normal 0.0-0.2 [facility] Comment on above: Order Comment: No: D o not add to previous draw Performed By: #### 1 0070, 88589, 17238, 38768, 31744, 13870 #### [facility] [address] ABS IMM GRANS 0.0 10*3/uL Normal 0.0-0.2 [facility] Comment on above: Order Comment: No: D o not add to previous draw Performed By: #### 1 0070, 52369, 41840, 35489, 53701, 55279 #### [facility] [address] ABS NEUTROPHILS 3.2 10*3/uL Normal 1.6-7.6 [facility] Comment on above: Order Comment: No: D o not add to previous draw Performed By: #### 1 0070, 73181, 13468, 86101, 80990, 58053 #### [facility] [address] Basophils/100 WBC (Bld) 0.2 % Normal 0.0-1.0 [facility] Comment on above: Order Comment: No: D o not add to previous draw Performed By: #### 1 0070, 00885, 16326, 29942, 87051, 79895 #### [facility] [address] [place] [address], [facility] Eosinophils (Bld) [#/Vol] 0.0 10*3/uL Normal 0.0-0.5 [facility] Comment on above: Order Comment: No: D o not add to previous draw Performed By: #### 1 0070, 60465, 30272, 72548, 68203, 50392 #### [facility] [address] [place] [address], [facility] Eosinophils/100 WBC (Bld) 0.4 % Normal 0.0-6.0 [facility] Comment on above: Order Comment: No: D o not add to previous draw Performed By: #### 1 0070, 08051, 70371, 20349, 81501, 93247 #### [facility] [address] [facility] Erythrocyte distribution width (RBC) [Ratio] 13.0 % Normal 11.5-15.0 [facility] Comment on above: Order Comment: No: D o not add to previous draw Performed By: #### 1 0070, 49387, 23490, 60911, 50504, 54293 #### [facility] [address] Hematocrit (Bld) [Volume fraction] 34.4 % Low 36.0-45.0 [facility] Comment on above: Order Comment: No: D o not add to previous draw Performed By: #### 1 0070, 87890, 80331, 21961, 64239, 78001 #### [facility] [address] [place] [address], [facility] Hemoglobin (Bld) [Mass/Vol] 10.8 g/dL Low 12.0-15.0 [facility] Comment on above: Order Comment: No: D o not add to previous draw Performed By: #### 1 0070, 19711, 76074, 63928, 11448, 06004 #### [facility] [address] [place] [address], [facility] IMMATURE GRANS 0.4 % Normal 0.0-1.0 [facility] Comment on above: Order Comment: No: D o not add to previous draw Performed By: #### 1 0070, 12302, 12670, 38440, 56172, 99156 #### [facility] [address] [place] [address], [facility] Lymphocytes (Bld) [#/Vol] 1.2 10*3/uL Normal 1.2-4.0 [facility] Comment on above: Order Comment: No: D o not add to previous draw Performed By: #### 1 0070, 62497, 95884, 60106, 10522, 51171 #### [facility] [address] [place] [address], [facility] Lymphocytes/100 WBC (Bld) 25.7 % Normal 20.0-45.0 [facility] Comment on above: Order Comment: No: D o not add to previous draw Performed By: #### 1 0070, 38439, 83359, 55540, 20256, 65572 #### [facility] [address] [place] [address], [facility] MCH (RBC) [Entitic mass] 27.5 pg Normal 27.0-33.0 [facility] Comment on above: Order Comment: No: D o not add to previous draw Performed By: #### 1 0070, 63897, 94013, 00469, 59716, 99990 #### [facility] [address] [place] [address], [facility] MCHC (RBC) [Mass/Vol] 31.4 g/dL Low 32.0-35.0 [facility] Comment on above: Order Comment: No: D o not add to previous draw Performed By: #### 1 0070, 38926, 10655, 42850, 96014, 11706 #### [facility] [address] [place] [address], [facility] MCV (RBC) [Entitic vol] 87.5 fL Normal 82.0-98.0 [facility] Comment on above: Order Comment: No: D o not add to previous draw Performed By: #### 1 0070, 40418, 25144, 30790, 87897, 21762 #### [facility] [address] [place] [address], [facility] Monocytes (Bld) [#/Vol] 0.3 10*3/uL Normal 0.1-1.0 [facility] Comment on above: Order Comment: No: D o not add to previous draw Performed By: #### 1 0070, 12796, 66226, 28734, 35030, 94080 #### [facility] [address] [place] [address], [facility] MONOS 6.2 % Normal 5.0-12.0 [facility] Comment on above: Order Comment: No: D o not add to previous draw Performed By: #### 1 0070, 93037, 68919, 23942, 13787, 27879 #### [facility] [address] [place] [address], [facility] Neutrophils/100 WBC (Bld) 67.1 % Normal 40.0-72.0 [facility] Comment on above: Order Comment: No: D o not add to previous draw Performed By: #### 1 0070, 41629, 29679, 76624, 33227, 66992 #### [facility] [address] [facility] [place] [address], [facility] Nucleated RBC/100 WBC (Bld) [Ratio] 0 % Normal 0-0 [facility] Comment on above: Order Comment: No: D o not add to previous draw Performed By: #### 1 0070, 81055, 86044, 28511, 55070, 75267 #### [facility] [address] [facility] [place] [address], [facility] PLAT CNT 210 10*3/uL Normal 150-400 [facility] Comment on above: Order Comment: No: D o not add to previous draw Performed By: #### 1 0070, 13709, 27125, 19721, 42670, 52764 #### [facility] [address] [place] [address], [facility] RBC (Bld) [#/Vol] 3.93 10*6/uL Normal 3.80-5.00 [facility] Comment on above: Order Comment: No: D o not add to previous draw Performed By: #### 1 0070, 52841, 42810, 65977, 65762, 34944 #### [facility] [address] [facility] [place] [address], [facility] WBC (Bld) [#/Vol] 4.71 10*3/uL Normal 4.00-10.60 [facility] Comment on above: Order Comment: No: D o not add to previous draw Performed By: #### 1 0070, 00010, 40021, 71826, 32894, 00219 #### [facility] [address] [facility]. [address] Cardiovascular Lab Reporton 03-31-2020 Cardiovascular Lab Report [facility] Patient Name: [facility] S MR #: [id number] Department of Physician: Rebecca Weaver M.D. Medicine Service Date: 03/31/2020 Division of Birthdate: 1965 Cardiology Room #: 3AB 077181 Adult Cardiovascular Services [place] [address] Cardiovascular Laboratory Report INDICATIONS FOR PACEMAKER PLACEMENT: [...] 10:48 A Rebecca Weaver M.D. Date Dict: 03/31/202001:20 Sabas/Rebecca Weaver M.D. Date Trans: 03/31/2020 03:35 P/mmo [id number] cc: Luis Armando Hines M.D. Heart Failure/ Transplant Mailstop [address] [place] [address] Normal [facility] MAGNESIUM BLOODon 03-31-2020 Magnesium [Mass/Vol] 1.8 mg/dL Low 1.9-2.7 [facility] Comment on above: Order Comment: No: D o not add to previous draw Performed By: #### 1 0070, 26686, 60277, 98892, 13770, 11796 #### [facility] [address] PHOSPHORUS BLOODon 0 Phosphate [Mass/Vol] 2.7 mg/dL Normal 2.5-5.0 [facility] Comment on above: Order Comment: No: D o not add to previous draw Performed By: #### 1 0070, 91828, 35705, 50306, 29776, 83189 #### [facility] [address] PROTHROMBIN TIMEon 0 INR Coag (PPP) [Relative time] 1.11 {INR} Normal 0.91-1.16 [facility] Comment on above: Order Comment: No: [...] CHEST 1995;108:[id number]. Performed By: #### 1 0070, 28422, 41714, 81073, 06335, 89943 #### [facility] [address] [place] [address], [facility] PT Coag (PPP) [Time] 14.3 s Normal 12.3-14.8 [facility] Comment on above: Order Comment: No: D o not add to previous draw Result Comment: ALL RESULTS MUST BE INTERPRETED WITH RESPECT TO BLOOD DRAWING ARTIFACT OR DILUTION ERROR OF ANTICOAGULANT AT THE TIME OF SAMPLING. Performed By: #### 1 0070, 70586, 26459, 12116, 60485, 01812 #### [facility] [address] [facility] *SARS-CoV-2 COVID-19on 03-30 [id number] Not Detected Normal Not Detected [facility] Comment on above: Order Comment: No: D o not add to previous draw Performed By: #### 1 0070, 68855, 18266, 20858, 18409, 45327 #### [facility] [address] [place] [address], [facility] APTTon 03-30-2020 aPTT Coag (Bld) [Time] 24.9 s Low 25.0-35.0 [facility] Comment on above: Order Comment: No: [...] THIS PURPOSE. Performed By: #### 5 7307, 64393 #### [facility] [address] [place] [address], [facility] BASIC METABOLIC PANELon 03-03 Calcium [Mass/Vol] 8.9 mg/dL Normal 8.6-10.3 [facility] Comment on above: Order Comment: No: D o not add to previous draw Performed By: #### 1 0070, 27726, 88947, 98489, 27940, 34130 #### [facility] [address] [place] [address], [facility] Chloride [Moles/Vol] 110 mmol/L High 98-107 [facility] Comment on above: Order Comment: No: D o not add to previous draw Performed By: #### 1 0070, 00175, 65647, 05608, 12019, 91608 #### [facility] [address] [place] [address], [facility] CO2 [Moles/Vol] 26 mmol/L Normal 21-31 [facility] Comment on above: Order Comment: No: D o not add to previous draw Performed By: #### 1 0070, 33436, 31671, 60359, 49782, 66101 #### [facility] [address] [place] [address], [facility] Creatinine [Mass/Vol] 0.86 mg/dL Normal 0.60-1.20 [facility] Comment on above: Order Comment: No: D o not add to previous draw Performed By: #### 1 0070, 32744, 33374, 70901, 49812, 69167 #### [facility] [address] [place] [address], [facility] GFR/1.73 sq M predicted among blacks MDRD (S/P/Bld) [Vol rate/Area] mL/min/{1.73_m2} Normal >60 [facility] Comment on above: Order Comment: No: D o not add to previous draw Performed By: #### 1 0070, 70677, 46273, 71018, 50608, 49446 #### [facility] [address] [place] [address], [place] GFR/1.73 sq M predicted among non-blacks MDRD (S/P/Bld) [Vol rate/Area] mL/min/{1.73_m2} Normal >60 [facility] Comment on above: Order Comment: No: D o not add to previous draw Performed By: #### 1 0070, 41949, 11348, 82134, 71599, 92358 #### [facility] [address] [place] [address], [place] Glucose [Mass/Vol] 119 mg/dL High 70-100 [facility] Comment on above: Order Comment: No: D o not add to previous draw Performed By: #### 1 0070, 21519, 07544, 72834, 41744, 20555 #### [facility] [address] [place] [address], [place] Potassium [Moles/Vol] 3.5 mmol/L Normal 3.5-5.1 [facility] Comment on above: Order Comment: No: D o not add to previous draw Performed By: #### 1 0070, 36230, 31181, 19061, 33099, 20596 #### [facility] [address] [place] [address], [place] Sodium [Moles/Vol] 142 mmol/L Normal 136-145 [facility] Comment on above: Order Comment: No: D o not add to previous draw Performed By: #### 1 0070, 02862, 95091, 15162, 73194, 69329 #### [facility] [address] [place] [address], [place] Urea nitrogen [Mass/Vol] 13 mg/dL Normal 7-25 [facility] Comment on above: Order Comment: No: D o not add to previous draw Performed By: #### 1 0070, 26906, 72594, 58949, 82770, 02003 #### [facility] [address] CBC W/DIFFon 03-30-2020 ABS BASOPHILS 0.0 10*3/uL Normal 0.0-0.2 [facility] Comment on above: Performed By: #### 5 0103 #### [facility] [address] [place] [address], [facility] ABS IMM GRANS 0.0 10*3/uL Normal 0.0-0.2 [facility] Comment on above: Performed By: #### 5 0103 #### [facility] [address] ABS NEUTROPHILS 5.7 10*3/uL Normal 1.6-7.6 [facility] Comment on above: Performed By: #### 5 0103 #### [facility] [address] Basophils/100 WBC (Bld) 0.0 % Normal 0.0-1.0 [facility] Comment on above: Performed By: #### 5 0103 #### [facility] [address] [facility] [place] [address], [facility] Eosinophils (Bld) [#/Vol] 0.0 10*3/uL Normal 0.0-0.5 [facility] Comment on above: Performed By: #### 5 0103 #### [facility] [address] [place] [address], [facility] Eosinophils/100 WBC (Bld) 0.0 % Normal 0.0-6.0 [facility] Comment on above: Performed By: #### 5 0103 #### [facility] [address] [place] [address], [facility] Erythrocyte distribution width (RBC) [Ratio] 12.9 % Normal 11.5-15.0 [facility] Comment on above: Performed By: #### 5 0103 #### [facility] [address] [facility] [place] [address], [facility] Hematocrit (Bld) [Volume fraction] 36.1 % Normal 36.0-45.0 [facility] Comment on above: Performed By: #### 5 0103 #### [facility] [address] [facility]. [address] Hemoglobin (Bld) [Mass/Vol] 11.5 g/dL Low 12.0-15.0 [facility] Comment on above: Performed By: #### 5 0103 #### [facility] [address] IMMATURE GRANS 0.5 % Normal 0.0-1.0 [facility] Comment on above: Performed By: #### 5 0103 #### [facility] [address] [place] [address], [facility] Lymphocytes (Bld) [#/Vol] 0.6 10*3/uL Low 1.2-4.0 [facility] Comment on above: Performed By: #### 5 3 #### [facility] [address] [place] [address], [facility] Lymphocytes/100 WBC (Bld) 9.3 % Low 20.0-45.0 [facility] Comment on above: Performed By: #### 5 3 #### [facility] [address] [place] [address], [facility] MCH (RBC) [Entitic mass] 27.4 pg Normal 27.0-33.0 [facility] Comment on above: Performed By: #### 5 3 #### [facility] [address] [facility] [place] [address], [facility] MCHC (RBC) [Mass/Vol] 31.9 g/dL Low 32.0-35.0 [facility] Comment on above: Performed By: #### 5 0103 #### [facility] [address] [facility] [place] [address], [facility] MCV (RBC) [Entitic vol] 86.0 fL Normal 82.0-98.0 [facility] Comment on above: Performed By: #### 5 0103 #### [facility] [address] [place] [address], [facility] Monocytes (Bld) [#/Vol] 0.2 10*3/uL Normal 0.1-1.0 [facility] Comment on above: Performed By: #### 5 3 #### [facility] [address] [place] [address], [facility] MONOS 2.5 % Low 5.0-12.0 [facility] Comment on above: Performed By: #### 5 3 #### [facility] [address] [place] [address], [facility] Neutrophils/100 WBC (Bld) 87.7 % High 40.0-72.0 [facility] Comment on above: Performed By: #### 5 3 #### [facility] [address] [place] [address], [facility] Nucleated RBC/100 WBC (Bld) [Ratio] 0 % Normal 0-0 [facility] Comment on above: Performed By: #### 5 3 #### [facility] [address] [facility] [place] [address], [facility] PLAT CNT 261 10*3/uL Normal 150-400 [facility] Comment on above: Performed By: #### 5 3 #### [facility] [address] [facility] [place] [address], [facility] RBC (Bld) [#/Vol] 4.20 10*6/uL Normal 3.80-5.00 [facility] Comment on above: Performed By: #### 5 0103 #### [facility] [address] [facility]. [address] WBC (Bld) [#/Vol] 6.47 10*3/uL Normal 4.00-10.60 [facility] Comment on above: Performed By: #### 5 0103 #### [facility] [address] [facility] FREE T4on 03-30-2020 Free T4 [Mass/Vol] 1.48 ng/dL Normal 0.71-1.85 [facility] Comment on above: Performed By: #### 1 0070, [id number], 07947, [id number], [id number], [id number] #### [facility] [address] MAGNESIUM BLOODon 03-30-2020 Magnesium [Mass/Vol] 2.0 mg/dL Normal 1.9-2.7 [facility] Comment on above: Order Comment: No: D o not add to previous draw Performed By: #### 1 0070, [id number], [id number], 08866, [id number], [id number] #### [facility] [address] [facility]. [address] PHOSPHORUS BLOODon 0 Phosphate [Mass/Vol] 2.8 mg/dL Normal 2.5-5.0 [facility] Comment on above: Order Comment: No: D o not add to previous draw Performed By: #### 1 0070, [id number], 91112, 94497, 16867, 81967 #### [facility] [address] PROTHROMBIN TIMEon 0 INR Coag (PPP) [Relative time] 1.21 {INR} High 0.91-1.16 [facility] Comment on above: Order Comment: No: [...] CHEST 1995;[id number]. Performed By: #### 5 7307, [id number] #### [facility] 3000 [facility]. [address] PT Coag (PPP) [Time] 15.4 s High 12.3-14.8 [facility] Comment on above: Order Comment: No: D o not add to previous draw Result Comment: ALL RESULTS MUST BE INTERPRETED WITH RESPECT TO BLOOD DRAWING ARTIFACT OR DILUTION ERROR OF ANTICOAGULANT AT THE TIME OF SAMPLING. Performed By: #### 5 7307, [id number] #### [facility] 3000 [employer]. [address] TROPONIN-Ion 03-30-2020 Troponin I.cardiac [Mass/Vol] 0.02 ng/mL Normal 0.00-0.04 [facility] Comment on above: Order Comment: No: D o not add to previous draw Result Comment: REFE RENCE RANGES: 0.00 - 0.04 ng/ml NORMAL 0.05 - 0.50 ng/ml INDETERMINATE > 0.50 ng/ml CONSISTENT WITH AN M.I. Performed By: #### 1 0070, 17258, 13310, 66304, 81141, 96790 #### [facility] 3000 [facility]. [address] Troponin I.cardiac [Mass/Vol] 0.04 ng/mL Normal 0.00-0.04 [facility] Comment on above: Order Comment: No: D o not add to previous draw Result Comment: REFE RENCE RANGES: 0.00 - 0.04 ng/ml NORMAL 0.05 - 0.50 ng/ml INDETERMINATE > 0.50 ng/ml CONSISTENT WITH AN M.I. Performed By: #### 3 5200 #### [facility] [address] Troponin I.cardiac [Mass/Vol] 0.04 ng/mL Normal 0.00-0.04 [facility] Comment on above: Order Comment: No: D o not add to previous draw Result Comment: REFE RENCE RANGES: 0.00 - 0.04 ng/ml NORMAL 0.05 - 0.50 ng/ml INDETERMINATE > 0.50 ng/ml CONSISTENT WITH AN M.I. Performed By: #### 1 0070, 78960, 17375, 41528, 05484, 17552 #### [facility] [address] TSH3 WITH REFLEX FT4on 03-30 TSH 3RD GENERATION 0.02 uIU/mL Low 0.34-5.60 [facility] Comment on above: Performed By: #### 1 0070, [id number], 40256, 85512, 76762, 11553 #### [facility] [address] Vital Signs Date Time Vital Sign Value Performing Clinician Facility 02-17-2025 13:40-0400 Body height 152.4 cm Naseem Carter NP Work Phone: [facility] 02-17-2025 13:40-040 Body mass index (BMI) [Ratio] 20.31 kg/m2 Naseem Carter NP Work Phone: [facility] 02-17-2025 13:40-040 Body weight 47.17 kg Naseem Carter PAIN MANAGEMENT PHYSICIAN Work Phone: [facility] 12-04-2024 07:30-0500 Body temperature 97.8 [degF] Tony Amaya MD Work Phone: [facility] 12-04-2024 07:30-0500 Diastolic blood pressure 77 mm[Hg] Tony Amaya MD Work Phone: [facility] 12-04-2024 07:30-0500 Heart rate 88 /min Tony Amaya MD Work Phone: [facility] 12-04-2024 07:30-0500 Respiratory rate 18 /min Tony Amaya MD Work Phone: [facility] 12-04-2024 07:30-0500 SaO2% (BldA) [Mass fraction] 97 % Tony Amaya MD Work Phone: [facility] 12-04-2024 07:30-0500 Systolic blood pressure 120 mm[Hg] Tony Amaya MD Work Phone: [facility] 12-02-2024 14:18-0500 Body height 152.4 cm Tony Amaya MD Work Phone: [facility] 12-02-2024 08:53-0500 Body weight 44.62 kg Tony Amaya MD Work Phone: [facility] 06-13-2024 12:13-0400 Body height 152.3 cm Zoila Monae MD Work Phone: [facility] 06-13-2024 12:13-0400 Body mass index (BMI) [Ratio] 19.98 kg/m2 Zoila Monae MD Work Phone: [facility] 06-13-2024 12:13-0400 Body weight 46.35 kg Zoila Monae MD Work Phone: [facility] 06-13-2024 12:13-0400 Diastolic blood pressure 77 mm[Hg] Zoila Monae MD Work Phone: [facility] 06-13-2024 12:13-0400 Heart rate 74 /min Zoila Monae MD Work Phone: [facility] 06-13-2024 12:13-0400 Systolic blood pressure 107 mm[Hg] Zoila Monae MD Work Phone: [facility] 03-06-2024 13:46-0400 Body height 153.5 cm Zoila Monae MD Work Phone: [facility] 03-06-2024 13:46-0400 Body mass index (BMI) [Ratio] 19.1 kg/m2 Zoila Monae MD Work Phone: [facility] 03-06-2024 13:46-0400 Body temperature 97.2 [degF] Zoila Monae MD Work Phone: [facility] 03-06-2024 13:46-0400 Body weight 45 kg Zoila Monae MD Work Phone: [facility] 03-06-2024 13:46-0400 Diastolic blood pressure 68 mm[Hg] Zoila Monae MD Work Phone: [facility] 03-06-2024 13:46-0400 Heart rate 106 /min Zoila Monae MD Work Phone: [facility] 03-06-2024 13:46-0400 Systolic blood pressure 101 mm[Hg] Zoila Monae MD Work Phone: [facility] 08-12-2022 15:32-0500 Body temperature 98.1 [degF] MD Tony Amaya Work Phone: [facility] 08-12-2022 15:32-0500 Diastolic blood pressure 69 mm[Hg] MD Tony Amaya Work Phone: [facility] 08-12-2022 15:32-0500 Heart rate 78 /min MD Tony Amaya Work Phone: [facility] 08-12-2022 15:32-0500 Respiratory rate 16 /min MD Tony Amaya Work Phone: [facility] 08-12-2022 15:32-0500 SaO2% (BldA) [Mass fraction] 94 % MD Tony Amaya Work Phone: [facility] 08-12-2022 15:32-0500 Systolic blood pressure 129 mm[Hg] MD Tony Amaya Work Phone: [facility] 08-12-2022 11:00-0500 Inhaled oxygen flow rate 3 L/min MD Tony Amaya Work Phone: [facility] 08-11-2022 12:39-0500 Body height 152.4 cm MD Tony Amaya Work Phone: [facility] 08-11-2022 06:00-0500 Body weight 44.9 kg MD Tony Amaya Work Phone: [facility] 08-10-2022 15:03-0500 Body mass index (BMI) [Ratio] 19.1 kg/m2 MD Tony Amaya Work Phone: [facility] 08-03-2022 14:27-0400 Body weight 0 kg MD Tony Amaya Work Phone: [facility] Encounters Encounter Date Encounter Type Care Provider Facility Start: 02-17-2025 End: 02-17-2025 Bamboo flowsheet Naseme Carter PAIN MANAGEMENT PHYSICIAN Work Phone: [facility] Start: 02-17-2025 End: 02-17-2025 Bamboo flowsheet Naseem Carter PAIN MANAGEMENT PHYSICIAN Work Phone: [facility] Start: 02-17-2025 End: 02-17-2025 ambulatory NASEEM CARTER Not Available Start: 02-17-2025 End: 02-17-2025 Patient encounter procedure Naseem Carter PAIN MANAGEMENT PHYSICIAN Work Phone: [facility] Comment on above: Preop examination (P rimary Dx) Start: 02-17-2025 End: 02-17-2025 Preprocedural examination done Naseem Carter PAIN MANAGEMENT PHYSICIAN Work Phone: [facility] Work Phone: Start: 02-14-2025 ambulatory [facility] Start: 02-10-2025 End: 02-14-2025 Telephone encounter Jr. Luis Armando Alonzo Zahida DO Work Phone: [facility] Start: 01-29-2025 ambulatory [facility] Start: 01-08-2025 End: 01-08-2025 Bamboo flowsheet JrChen Luis Armando Cheri Stepcodi DO Work Phone: [facility] Start: 01-08-2025 End: 01-08-2025 Bamboo flowsheet Luis Armando Cheri Stepcodi DO Work Phone: [facility] Start: 01-08-2025 End: 01-08-2025 ambulatory LUIS ARMANDO LINDER Not Available Start: 01-08-2025 End: 01-08-2025 Office outpatient visit 25 minutes JrChen Teague DO Work Phone: [facility] Comment on above: Carpal tunnel syndro me on left (Primary Dx); Pain in left hand Start: 01-07-2025 ambulatory Tony Amaya Facility: [facility] Start: 12-10-2024 End: 12-10-2024 ambulatory [facility] Start: 12-02-2024 Non-patient / Non-visit Perez Amaya MD Work Phone: [facility] Work Phone: Start: 12-01-2024 End: 12-04-2024 Evaluation and management of inpatient Tony Amaya MD Work Phone: [facility]-[address] [place] [address] Work Phone: Start: 12-01-2024 Registered Recurring Tony berry MD Work Phone: [facility] Start: 11-29-2024 End: 11-29-2024 ambulatory DARRYL GOODE [facility] Start: 11-28-2024 End: 11-28-2024 Patient encounter procedure Monika Woodett DO Work Phone: [facility] Comment on above: Numbness and tinglin g in left hand Start: 11-28-2024 End: 11-28-2024 ambulatory MONIKA VARGAS Not Available Start: 11-26-2024 End: 11-26-2024 ambulatory Tony Amaya MD Work Phone: [facility] Work Phone: Start: 11-26-2024 End: 11-26-2024 Departed Referred Tony Amaya MD Work Phone: [facility] Start: 11-14-2024 Registered Recurring Tony berry MD Work Phone: [facility] Start: 11-11-2024 End: 11-11-2024 Bamboo flowsheet Zulema Mackay PAIN MANAGEMENT PHYSICIAN Work Phone: [facility] Start: 11-11-2024 End: 11-11-2024 Bamboo flowsheet Zulema Smith Aplbill PAIN MANAGEMENT PHYSICIAN Work Phone: [facility] Start: 11-11-2024 End: 11-11-2024 ambulatory ZULEMA Smith APLBILL Not Available Start: 11-11-2024 End: 11-11-2024 Office outpatient visit 15 minutes Zulema Mackay PAIN MANAGEMENT PHYSICIAN Work Phone: [facility] Comment [...] (Primary Dx) Start: 11-05-2024 End: 11-05-2024 Bamboo flowsheet Zehra Bunch OT Work Phone: [facility] Start: 11-05-2024 End: 11-05-2024 Bamboo flowsheet Zehra Bunch OT Work Phone: [facility] Start: 11-05-2024 End: 11-05-2024 ambulatory Zehra Bunch OT Work Phone: [facility] Comment on above: Finger stiffness, le ft (Primary Dx) Start: 11-01-2024 End: 11-01-2024 Telephone encounter Zehra Bunch OT Work Phone: [facility] Comment on above: CX OT today Start: 10-29-2024 End: 10-29-2024 Bamboo flowsheet Zehra Bunch OT Work Phone: [facility] Start: 10-29-2024 End: 10-29-2024 Bamboo flowsheet Zehra Bunch OT Work Phone: [facility] Start: 10-29-2024 End: 10-29-2024 ambulatory Zehra Bunch OT Work Phone: [facility] Comment on above: Finger stiffness, le ft (Primary Dx) Start: 10-25-2024 End: 10-25-2024 Bamboo flowsheet Zehra [...] End: 10-07-2024 Bamboo flowsheet Zulema Smith Apling PAIN MANAGEMENT PHYSICIAN Work Phone: [facility] Start: 10-07-2024 End: 10-07-2024 Bamboo flowsheet Zulema Smith Apling PAIN MANAGEMENT PHYSICIAN Work Phone: [facility] Start: 10-07-2024 End: 10-07-2024 ambulatory ZULEMA Smith APLING Not Available Start: 10-07-2024 End: 10-07-2024 Office outpatient visit 10 minutes Zulema Mackay PAIN MANAGEMENT PHYSICIAN Work Phone: [facility] Comment on above: Closed nondisplaced fracture of base of fifth metacarpal bone of left hand with routine healing, subsequent encounter (Primary Dx); Closed nondisplaced fracture of right patella with routine healing, unspecified fracture morphology, subsequent encounter Start: 09-16-2024 End: 09-16-2024 Bamboo flowsheet Zulema Smith Apling PAIN MANAGEMENT PHYSICIAN Work Phone: [facility] Start: 09-16-2024 End: 09-16-2024 Bamboo flowsheet Zulema Smith Apling PAIN MANAGEMENT PHYSICIAN Work Phone: [facility] Start: 09-16-2024 End: 09-16-2024 Postop follow up visit related to original px Zulema B Apling PAIN MANAGEMENT PHYSICIAN Work Phone: [facility] Comment on above: Closed nondisplaced fracture of base of fifth metacarpal bone of left hand with routine healing, subsequent encounter (Primary Dx); Closed nondisplaced fracture of right patella with routine healing, unspecified fracture morphology, subsequent encounter Start: 09-16-2024 End: 09-16-2024 ambulatory ZULEMA B APLING Not Available Start: 08-19-2024 End: 08-19-2024 Bamboo flowsheet Zulema B Apling PAIN MANAGEMENT PHYSICIAN Work Phone: [facility] Start: 08-19-2024 End: 08-19-2024 Bamboo flowsheet Zulema B Apling PAIN MANAGEMENT PHYSICIAN Work Phone: [facility] Start: 08-19-2024 End: 08-19-2024 ambulatory ZULEMA B APLING Not Available Start: 08-19-2024 End: 08-19-2024 Postop follow up visit related to original px Zulema B Apling PAIN MANAGEMENT PHYSICIAN Work Phone: [facility] Comment on above: Right elbow pain (Pr imary Dx); Closed nondisplaced fracture of base of fifth metacarpal bone of left hand with routine healing, subsequent encounter Start: 08-07-2024 End: 08-07-2024 Bamboo flowsheet Zulema B Apling PAIN MANAGEMENT PHYSICIAN Work Phone: [facility] Start: 08-07-2024 End: 08-07-2024 Bamboo flowsheet Zulema B Apling PAIN MANAGEMENT PHYSICIAN Work Phone: [facility] Start: 08-07-2024 End: 08-07-2024 Postop follow up visit related to original px Zulema B Apling PAIN MANAGEMENT PHYSICIAN Work Phone: [facility] Comment on above: Closed nondisplaced fracture of right patella with routine healing, unspecified fracture morphology, subsequent encounter (Primary Dx); Right elbow pain Start: 08-07-2024 End: 08-07-2024 ambulatory ZULEMA B APLING Not Available Start: 07-22-2024 End: 07-22-2024 Bamboo flowsheet Zulema B Apling PAIN MANAGEMENT PHYSICIAN Work Phone: [facility] Start: 07-22-2024 End: 07-22-2024 Bamboo flowsheet Zulema B Apling PAIN MANAGEMENT PHYSICIAN Work Phone: [facility] Start: 07-22-2024 End: 07-22-2024 Office outpatient visit 15 minutes Zulema B Apling PAIN MANAGEMENT PHYSICIAN Work Phone: [facility] Comment on above: Left hand pain (Prim isamar Dx); Contusion of dorsum of left hand; Closed nondisplaced fracture of base of fifth metacarpal bone of left hand with routine healing, subsequent encounter Start: 07-22-2024 End: 07-22-2024 ambulatory ZULEMA B APLING Not Available Start: 07-10-2024 End: 07-10-2024 Bamboo flowsheet Zulema B Apling PAIN MANAGEMENT PHYSICIAN Work Phone: [facility] Start: 07-10-2024 End: 07-10-2024 Bamboo flowsheet Zulema B Apling PAIN MANAGEMENT PHYSICIAN Work Phone: [facility] Start: 07-10-2024 End: 07-10-2024 Office outpatient visit 15 minutes Zulema B Apling PAIN MANAGEMENT PHYSICIAN Work Phone: [facility] Comment on above: Closed nondisplaced fracture of right patella, unspecified fracture morphology, initial encounter (Primary Dx); Right knee pain, unspecified chronicity Start: 07-10-2024 End: 07-10-2024 ambulatory ZULEMA B APLING Not Available Start: 06-24-2024 End: 06-24-2024 Bamboo flowsheet Zulema B Apling PAIN MANAGEMENT PHYSICIAN Work Phone: [facility] Start: 06-24-2024 End: 06-24-2024 Bamboo flowsheet Zulema B Apling PAIN MANAGEMENT PHYSICIAN Work Phone: [facility] Start: 06-24-2024 End: 06-24-2024 Office outpatient visit 25 minutes Zulema B Apling PAIN MANAGEMENT PHYSICIAN Work Phone: [facility] Comment on above: Left hand pain (Prim isamar Dx); Right knee pain, unspecified chronicity; Contusion of right knee, initial encounter; Contusion of dorsum of left hand; Left shoulder pain, unspecified chronicity; Arthritis of left acromioclavicular joint; Glenohumeral arthritis, left Start: 06-24-2024 End: 06-24-2024 ambulatory ZULEMA MACKAY Not Available Start: 06-13-2024 End: 06-13-2024 ambulatory ZOILA MONAE Facility:[facility] Start: 06-13-2024 End: 06-13-2024 Patient encounter procedure Zoila Monae MD Work Phone: [facility] Comment on above: Transient neurologic al symptoms (Primary Dx) Start: 06-11-2024 amb[facility] Start: 06-11-2024 End: 06-11-2024 Subsequent hospital visit by physician Eeg [facility] Work Phone: [facility] Comment on above: Memory deficit [R41. 3] Start: 06-04-2024 End: 06-04-2024 Orders Only Zoila Monae MD Work Phone: [facility] Comment on above: Memory deficit (Prim isamar Dx); Auditory hallucinations; Mentally challenged Start: 05-28-2024 End: 09-19-2024 Telephone encounter Zoila Monae MD Work Phone: [facility] Start: 05-28-2024 End: 05-28-2024 ambulatory [facility] Start: 03-06-2024 End: 03-06-2024 ambulatory TONY AMAYA Facility:[facility] Start: 03-06-2024 End: 03-06-2024 Patient encounter procedure Zoila Monae MD Work Phone: [facility] Comment on above: Memory deficit (Prim isamar Dx); Auditory hallucinations; Mentally challenged Start: 02-20-2024 Emergency department patient visit REGAN ALDANA [facility] Start: 02-20-2024 End: 02-20-2024 Emergency department patient visit CASSANDRA MARICRUZ [facility] Start: 01-03-2023 End: 01-07-2023 Evaluation and management of inpatient DR TONY AMAYA . Facility:[facility] Start: 11-01-2022 End: 11-02-[address] TONY AMAYA . Facility:[facility] Start: 09-30-2022 End: 10-01-[address] ROSALINA RESENDIZ Facility:[facility] Start: 09-02-2022 End: 09-02-2022 ambulatory MD Tony Amaya Work Phone: [facility] Work Phone: Start: 09-02-2022 End: 09-02-2022 Patient encounter procedure MD Tony Amaya Work Phone: [facility] Start: 08-25-2022 End: 08-25-[address] ROSALINA RESENDIZ Facility:[facility] Start: 08-10-2022 End: 08-12-2022 Admission to same day surgery center MD [facility] Start: 08-10-2022 End: 08-12-2022 ambulatory MD Tony Amaya Work Phone: [facility] Work Phone: Start: 08-08-2022 End: 08-08-2022 ambulatory MD Tony Amaya Work Phone: [facility] Work Phone: Start: 08-08-2022 End: 08-08-2022 Departed Referred MD Tony Amaya Work Phone: [facility] Start: 08-05-2022 End: 08-05-2022 ambulatory MD Tony Amaya Work Phone: [facility] Work Phone: Start: 08-05-2022 End: 08-05-2022 Patient encounter procedure MD Tony Amaya Work Phone: [facility]-Pre-Surgical [facility] Start: 07-30-2022 End: 07-30-[address] ROSALINA RESENDIZ Facility:[facility] Start: 07-04-2022 End: 07-06-[address] TONY AMAYA . Facility:[facility] Start: 07-04-2022 End: 07-04-[address] ALBERTO FERRO Facility:[facility] Start: 06-29-2022 Encounter for preprocedural laboratory examination NADEGE GRADNER . [facility] Start: 06-27-2022 End: 06-28-2022 ambulatory NADEGE [...] Evaluation and management of inpatient DR TONY AMAAY . Facility:[facility] Start: 03-30-2020 End: 04-06-2020 Evaluation and management of inpatient EMMY PARIS Facility:[facility] Procedures Date Procedure Procedure Detail Performing Clinician Start: 11-28-2024 End: 11-28-2024 Needle emg ea extremty w/paraspinl area complete Monika Vargas DO Work Phone: Start: 11-26-2024 Urine culture Tony Amaya MD Work Phone: Start: 10-07-2024 Radex hand minimum 3 views Zulema hoffmann PAIN MANAGEMENT PHYSICIAN Work Phone: Start: 09-16-2024 Radex hand minimum 3 views Zulema hoffmann PAIN MANAGEMENT PHYSICIAN Work Phone: Start: 09-16-2024 Radiologic examination knee 3 views Zulema Mackay PAIN MANAGEMENT PHYSICIAN Work Phone: Start: 08-19-2024 Radex hand minimum 3 views Zulema hoffmann PAIN MANAGEMENT PHYSICIAN Work Phone: Start: 08-07-2024 End: 08-07-2024 Radex elbow 2 views Zulema Mackay PAIN MANAGEMENT PHYSICIAN Work Phone: Start: 07-22-2024 Radex hand minimum 3 views Zulema hoffmann PAIN MANAGEMENT PHYSICIAN Work Phone: Start: 06-24-2024 Radiologic examination knee 3 views Zulema Mackay PAIN MANAGEMENT PHYSICIAN Work Phone: Start: 06-11-2024 Electroencephalogram w/rec awake&drowsy Zoila Monae MD Work Phone: Start: 06-11-2024 Electroencephalogram w/rec awake&drowsy [facility] Start: 09-02-2022 Plain chest X-ray [...] Tony Amaya Work Phone: Urine culture MD Jimenez Jesúsgabby Work Phone: Plan of Treatment Date Care Activity Detail Author Start: 2039 RSV Vaccine (1 - 1-dose 75+ series) RSV Vaccine (1 - 1-dose 75+ series) [facility] Start: 02-19-2027 Diabetes Screening Diabetes Screening [facility] Start: 03-11-2025 End: 03-11-2025 Patient encounter procedure 03/11/2025 2:00 PM EDT Office Visit [facility] [address] [place] [address] Chuy Jeter PA [address] [facility] [address] [place] [address] [facility] Start: 02-17-2025 End: 02-17-2025 Patient encounter procedure 02/17/2025 1:30 PM EDT Office Visit [facility] [address] [place] [address] Naseem Carter, PAIN MANAGEMENT PHYSICIAN [address] [place] [address] [facility] Start: 02-10-2025 End: 02-10-2025 Patient encounter procedure 02/10/2025 11:00 AM EDT Office Visit [facility] [address] [place] [id number] Naseem Carter, PAIN MANAGEMENT PHYSICIAN [address] [place] [address] [facility] Start: 12-04-2024 [facility] Start: 12-01-2024 Hospital admission [facility] Start: 12-01-2024 [facility] Start: 11-26-2024 Urine culture [facility] Start: 11-26-2024 Bacteria identified in Urine by Culture Urine Culture [facility] Start: 11-11-2024 End: 11-11-2024 Patient encounter procedure 11/11/2024 10:00 AM EST Office Visit [facility] [address] [place] [address] Zulema Mackay NP [address] [place] [address] [facility] Start: 11-08-2024 End: 11-08-2024 ambulatory 11/08/2024 12:00 PM EST Treatment [facility] [address] [place] [address] Zehra Bunch, OT [address] [place] [address] [facility] Start: 11-05-2024 End: 11-05-2024 ambulatory 11/05/2024 12:00 PM EST Treatment [facility] [address] [place] [address] Zehra Bunch, OT [address] [place] [address] [facility] Start: 11-01-2024 End: 11-01-2024 ambulatory 11/01/2024 1:00 PM EST Treatment [facility] [address] [place] [address] Zehra Bunch, OT [address] [place] [address] [facility] Start: 10-29-2024 End: 10-29-2024 ambulatory [facility] Comment on above: Arrived Start: 10-25-2024 End: 10-25-2024 ambulatory 10/25/2024 9:00 AM EST Treatment [facility] [address] [place] [address] Zehra Bunch, OT [address] [place] [address] [facility] Start: 10-22-2024 End: 10-22-2024 ambulatory 10/22/2024 1:00 PM EST Evaluation [facility] [address] [place] [address] Zehra Bunch, OT [address] [place] [address] Closed nondisplaced fracture of base of fifth metacarpal bone of left hand with routine healing, subsequent encounter [facility] Comment on above: Closed nondisplaced fracture of base of fifth metacarpal bone of left hand with routine healing, subsequent encounter Start: 10-11-2024 End: 10-11-2024 ambulatory 10/11/2024 1:30 PM EST Evaluation [facility] [address] [place] [address] ZaneFlorina, OT [address] [place] [address] [facility] Start: 10-07-2024 End: 10-07-2024 Patient encounter procedure 10/07/2024 11:15 AM EST Office Visit [facility] [address] [place] [address] Zulema Mackay, PAIN MANAGEMENT PHYSICIAN [address] [place] [address] [facility] Start: 09-16-2024 End: 09-16-2024 Patient encounter procedure 09/16/2024 10:00 AM EST Office Visit [facility] [address] [place] [address] Zulema Mackay, PAIN MANAGEMENT PHYSICIAN [address] [place] [address] [facility] Start: 08-19-2024 End: 08-19-2024 Patient encounter procedure 08/19/2024 12:30 PM EST Office Visit [facility] [address] [address] [place] [address] Zulema Mackay, PAIN MANAGEMENT PHYSICIAN [address] [place] [address] [facility] Start: 08-07-2024 End: 08-07-2024 Patient encounter procedure [facility] Comment on above: Closed nondisplaced fracture of right pa tella with routine healing, unspecified fracture morphology, subsequent encounter (Primary Dx) Start: 07-22-2024 End: 07-22-2024 Patient encounter procedure [facility] Comment on above: Left hand pain (Primary Dx); Contusion of dorsum of left hand Start: 07-10-2024 End: 07-10-2024 Patient encounter procedure 07/10/2024 12:15 PM EDT Office Visit [facility] [address] [place] [address] Zulema Mackay, PAIN MANAGEMENT PHYSICIAN [address] [place] [address] Arrived [facility] Comment on above: Arrived Start: 06-24-2024 End: 06-24-2024 Patient encounter procedure 06/24/2024 10:30 AM EDT Office Visit [facility] [address] [facility] [address] [place] [address] Zulema Mackay NP [address] [facility] [address] [place] [address] Left hand pain (Primary Dx); Right knee pain, unspecified chronicity; Contusion of right knee, initial encounter; Contusion of dorsum of left hand; Left shoulder pain, unspecified chronicity; Arthritis of left acromioclavicular joint; Glenohumeral arthritis, left [facility] Comment on above: Left hand pain (Primary Dx); Right knee pain, unspecified chronicity; Contusion of right knee, initial encounter; Contusion of dorsum of left hand; Left shoulder pain, unspecified chronicity; Arthritis of left acromioclavicular joint; Glenohumeral arthritis, left Start: 06-13-2024 End: 06-13-2024 Patient encounter procedure 06/13/2024 12:30 PM EDT Office Visit Neurology [facility] [address] [place] [address] [place] [address] [place] [address] Return in about 3 months (around 06/06/2024) for with Dr. Monae. Neurology [facility] Comment on above: Return in about 3 months (around ) for with Dr. Monae. Start: 06-11-2024 End: 06-11-2024 Patient encounter procedure 06/11/2024 9:00 AM EDT Appointment [facility] [address] [address] Memory deficit [R41.3] [facility] Comment on above: Memory deficit [R41.3] Start: 06-02-2024 Covid-19 Vaccine ( season) Covid-19 Vaccine ( season) [facility] Start: 06-02-2024 Covid-19 Vaccine ( season) Covid-19 Vaccine () [facility] Start: 06-02-2024 Influenza vaccination [facility] Start: 03-29-2024 End: 03-29-2024 Patient encounter procedure 03/29/2024 11:45 AM EDT Office Visit Neurology [address] [place] [address] Memory deficit [R41.3] Neurology Comment on above: Memory deficit [R41.3] Start: 10-02-2023 Behavioral Health Screening Behavioral Health Screening [facility] Start: 06-02-2023 Covid-19 Vaccine ( season) Covid-19 Vaccine () [facility] Start: 08-12-2022 [facility] Start: 08-10-2022 Consultation [facility] Start: 08-10-2022 End: 08-10-2022 [facility] Start: 2014 Pneumococcal Vaccine: 50+ (1 of 1 - PCV) Pneumococcal Vaccine: 50+ (1 of 1 - PCV) [facility] Start: 2014 Shingrix Vaccine (1 of 2) Shingrix Vaccine (1 of 2) [facility] Start: 2009 Lipid panel Lipid Screening [facility] Start: 2009 Screening for malignant neoplasm of colon [facility] Start: 2004 Screening for malignant neoplasm of breast Mammogram Screening [facility] Start: 1994 Screening for malignant neoplasm of cervix HPV Testing [facility] Start: 1985 Screening for malignant neoplasm of cervix [facility] Start: 1983 Urine microalbumin profile DTaP,Tdap,Td Vaccine (1 - Tdap) [facility] Start: 1982 Anxiety Screening Anxiety Screening [facility] Start: 1982 Depression Screening Depression Screening [facility] Start: 1982 Hepatitis C screening Hepatitis C Screening [facility] Start: 1982 HIV screening HIV Screening [facility] Acid Fast Bacilli Cu lture & Smear Acid Fast Bacilli Culture & Smear [facility] Anaerobic microbial culture Anaerobic Culture [facility] Bacteria identified in Urine by Culture Urine Culture [facility] Chlamydia trachomati s [Presence] in Unspecified specimen by Organism specific culture [facility] Work Phone: Chlamydia trachomati s [Presence] in Unspecified specimen by Organism specific culture [facility] EEG NEUROLOGY 12:00 AM EDT [facility] End: 03-06-2025 EPIL EEG ROUTINE [facility] EEG ROUTINE NEUROLOGY Routine Memory deficit Auditory hallucinations 1 Occurrences starting 03/06/2024 until 03/06/2025 [facility] Work Phone: Comment on above: 1 Occurrences starting 03/06/2024 until 03/06/2025 Fungal Culture Result 1 Fungal Culture Re sult 1 [facility] Fungus identified in Unspecified specimen by Culture [facility] Work Phone: Mycobacterium sp identified in Unspecified specimen by Organism specific culture [facility] Work Phone: Mycology Culture Mycology Culture [facility] Patient Education Bipolar disord er - Discharge instructions [facility] Instructions Know your Meds [facility] Work Phone: Patient referral [facility] Work Phone: [facility] Payers Date Payer Category Payer Self-pay 2017 Medicaid [id number] 2017 Medicaid (Managed Care) [facility] MEDICAID [id number] 1964 Unknown [id number] 2.16.840.1.400792.3.579.2. 647 1964 Unknown [id number] 2.16.840.1.353837.3.579.2. 593 1964 Unknown [id number] 2.16.840.1.036155.3.579.2. 593 1964 Unknown [id number] 2.16.840.1.506574.3.579.2. 593 1964 Unknown [id number] 2.16.840.1.946414.3.579.2. 593 1964 Unknown [id number] 2.16.840.1.714308.3.579.2. 593 1964 Unknown [id number] 2.16.840.1.239440.3.579.2. 593 1964 Unknown [id number] 2.16.840.1.728858.3.579.2. 593 1964 Unknown [id number] 2.16.840.1.526693.3.579.2. 593 1964 Unknown [id number] 2.16.840.1.641034.3.579.2. 593 1964 Unknown [id number] 2.16.840.1.098637.3.579.2. 593 1964 Unknown [id number] 2.16.840.1.729610.3.579.2. 593 1964 Unknown [id number] 2.16.840.1.782957.3.579.2. 593 1964 Unknown [id number] 2.16.840.1.124711.3.579.2. 593 1964 Unknown [id number] 2.16.840.1.851989.3.579.2. 593 1964 Unknown [id number] 2.16.840.1.247887.3.579.2. 1258 1964 Unknown [id number] 2.16.840.1.008478.3.579.2. 1258 1964 Unknown [id number] 2.16.840.1.713445.3.579.2. 1258 1964 Unknown [id number] 2.16.840.1.289382.3.579.2. 1258 1964 Unknown [id number] 2.16840.1.876182.3.579.2. 1258 1964 Unknown [id number] 2.840.1.371416.3.579.2. 1258 1964 Unknown [id number] 2.840.1.672798.3.579.2. 1258 1964 Unknown [id number] 2.840.1.960504.3.579.2. 1258 1964 Unknown [id number] 2.840.1.293153.3.579.2. 1258 1964 Unknown [id number] 2.840.1.941019.3.579.2. 1258 1964 Unknown [id number] 2.840.1.798104.3.579.2. 1258 1964 Unknown [id number] 2.840.1.234779.3.579.2. 1258 1964 Unknown [id number] 2.840.1.395486.3.579.2. 1258 1964 Unknown [id number] 2.16840.1.069961.3.579.2. 1258 1964 Unknown [id number] 2.16840.1.961671.3.579.2. 1258 1964 Unknown [id number] 2.16840.1.512583.3.579.2. 1258 1964 Unknown [id number]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 History of Present illness Narrative* Zehra Bunch OT - 11/08/2024 12:00 PM EST Occupational Therapy Occupational Therapy Treatment Visit Patient Name: Emigdio Apodaca Today's Date: 11/08/2024 Linked Episodes Type: Episode: Status: Noted: Resolved: Last update: Updated by: Occupational Therapy L 5th digit fracture Active 10/08/2024 11/08/2024 9:28 AM Zehra Bunch OT Comments:Episode created from referral [id number] Visit number: 02/06 Timed Code Treatment minutes: 53 Total Treatment [...] numbness and spasms to the L hand. Forms Analysis Manager strength has increased to 25# and LP has remained at 5#. Encouraged stretching/ nerve glides at home. Does have a follow upwith ortho on Monday. P: Continue with POC, progress per toleration. documented in this encounterSSM Health [id number] History of Present illness Narrative* Zehra Bunch OT - 11/05/2024 12:00 PM EST Occupational Therapy Occupational Therapy Treatment Visit Patient Name: Emigdio Apodaca Today's Date: 11/05/2024 Linked Episodes Type: Episode: Status: Noted: Resolved: Last update: Updated by: Occupational Therapy L 5th digit fracture Active 10/08/2024 11/01/2024 12:46 PM Zehra Bunch OT Comments:Episode created from referral [id number] Visit number: 4 Timed Code Treatment minutes: 55 Total Treatment [...] spasms to the L hand. Encouraged stretching/ nerveglides at home. OT remains necessary to maximize L hand function in order to return to all I/ADL tasks at discharge. P: Continue with POC, progress per toleration. documented in this encounterSSM Health [id number] Telephone encounter Note* Telephone Encounter - Jonana Boo - 11/01/2024 12:43 PM EST She called noting not feeling well and is cx OT for today. I reminded her, her next on 11/05. She said she'll try to be here; I told her if not feeling better to contact. NOMS [id number] Miscellaneous Notes* Telephone Encounter - Joanna Boo - 11/01/2024 12:43 PM EST She called noting not feeling well and is cx OT for today. I reminded her, her next on 11/05. She said she'll try to be here; I told her if not feeling better to contact. documented in this [facility]01-28-2025 History of Present illness Narrative* Zehra Bunch OT - 10/29/2024 1:00 PM EST Occupational Therapy Occupational Therapy Treatment Visit Patient Name: Emigdio Apodaca Today's Date: 10/29/2024 Linked Episodes Type: Episode: Status: Noted: Resolved: Last update: Updated by: Occupational Therapy L 5th digit fracture Active 10/08/2024 10/28/2024 1:49 PM Zehra Bunch OT Comments:Episode created from referral [id number] Visit number: 12/07 Timed Code Treatment minutes: [...] spasms to the L hand. Encouraged stretching/ nerveglides at home. OT remains necessary to maximize L hand function in order to return to all I/ADL tasks at discharge. P: Continue with POC, progress per toleration. documented in this encounterSSM Health [id number] History of Present illness Narrative* Zehra Bunch OT - 10/25/2024 9:00 AM EST Occupational Therapy Occupational Therapy Treatment Visit Patient Name: Emigdio Apodaca Today's Date: 10/25/2024 Linked Episodes Type: Episode: Status: Noted: Resolved: Last update: Updated by: Occupational Therapy L 5th digit fracture Active 10/08/2024 10/24/2024 11:08 AM Zehra Bunch OT Comments:Episode created from referral [id number] Visit number: 2 Timed Code Treatment minutes: [...] spasms to the L hand. Encouraged stretching/ nerveglides at home. OT remains necessary to maximize L hand function in order to return to all I/ADL tasks at discharge. P: Continue with POC, progress per toleration. documented in this encounterSSM Health [id number] History of Present illness Narrative* Zehra Bunch OT - 10/22/2024 1:00 PM EST Images from the original note were not included. Occupational Therapy Occupational Therapy Evaluation Visit Patient Name: Emigdio Apodaca Today's Date: 10/22/2024 Linked Episodes Type: Episode: Status: Noted: Resolved: Last update: Updated by: Occupational Therapy Physical Therapy - Occupational Therapy - October 2024 Active 10/08/2024 10/18/2024 1:40 PM Amb, Background User Comments:Episode created from referral [id number] Visit number: 1 Subjective Interim History: 59 y/o R hand dominant female presents with chief complaint of total hand numbnessand limited ROM of the 5th digit. Per patient she smashed her hand in a car door resulting in a fracture of the MCP. Per patient she was casted and this did not come off until 09/16/24. States since having the cast off she finds herself dropping everything with her L hand . Numbness does come andgo. States every finger and palm of the [...] 5th digit. Strength Strength additional comments: L chain tender strength: 15# LP: 5# R chain tender strength: 30# LP: 9 Treatment: Education: HEP [...] AROM/PROM/ joint mobilization complete to L RF 1x20.Composite fist with holds x1 minute complete x3 with RF touching DPC at end of session. HEP established for ROM and edema management. Also added nerve glides secondary to c/o increased numbness to L hand at discharge. Assessment/Plan Short Term Goals: Pt will be independent with home exercise program for light strengthening and ROM at discharge. Aids Social Worker Goals: PRWHE Pain Score < 10/50 ( IE: 33/50) PRWHE Functional Score < 10/100 ( IE:57/100 ) Increase L 5th digit CHAO to 100% pain free in order to complete I/ADL tasks at discharge. Pt to increase chain tender strength by 10# and LP by 2# [...] Please sign below. Date: documented in this encounterSSM Health [id number] Telephone encounter Note* Telephone Encounter - Joanna Boo - 10/08/2024 1:36 PM EST She called back and we scheduled her OT Eval for 1/10 w/ Florina Degroot, OT. SSM Health [id number] Miscellaneous Notes* Telephone Encounter - Joanna Boo - 10/08/2024 1:36 PM EST She called back and we scheduled her OT Eval for 1/10 w/ Florina Degroot, OT. * Telephone Encounter - Joanna Boo - 10/08/2024 11:46 AM EST Tried to contact to set-up OT for L hand, but the voicemail is full. documented in this encounterSSM Health [id number] Telephone encounter Note* Telephone Encounter - Joanna Boo - 10/08/2024 11:46 AM EST Tried to contact to set-up OT for L hand, but the voicemail is full. NOMS [id number] History of Present illness Narrative* Zulema Mackay NP - 10/07/2024 11:15 AM EST Images from the original note were not included. Subjective Patient ID: Emigdio Apodaca is a 59 y.o. female. LT hand 3.5 months s/p LT hand contusion She notes a few days after getting the cast off, she smashed her hand in the car door at [facility]. Here to check ROM Pt had tripped [...] XR/06/19/24/[facility] LT hand, RT knee, LT shoulder, [facility] 06/19/24, norco, IBU, XR NOMS 07/22/24, XRNOMS 08/19/[address] RT knee TB [...] 06/19/24, norco, IBU, XR NOMS 06/24, CT TBH1/01/23, XR NOMS 08/07/24 RT elbow Pt notes [...] metacarpal bone of left hand with routine healing,subsequent encounter S62.347D Ambulatory referral to Occupational Therapy [...] fist Neurovascular Left Capillary refill: <3 sec * SLY SpenceT - 10/07/2024 11:15 AM EST Images from the original note were not included. Subjective Patient ID: Emigdio Apodaca is a 59 y.o. female. LT hand [...] XR/06/19/24/[facility] LT hand, RT knee, LT shoulder, [facility] ER 06/19/24, norco, IBU, XR NOMS 07/22/24, XRNOMS 08/19/24, XR NOMS 10/07/[address] RT knee [facility] 07/05/24 Notes she started taking fosamax [...] XR/06/19/24/[facility] LT hand, RT knee, LT shoulder, [facility] ER 06/19/24, norco, IBU, XR NOMS 06/24, CT TBH1, XR NOMS 08/07/24 RT elbow Pt notes she fell on 08/04/23 and hit her right elbow. drum tender to the touch, medial elbow. TX: xrays 08/07/24 noms Objective Ortho Exam Knee Musculoskeletal Exam Gait Limp: right Inspection Right Effusion: none Edema: none Ecchymosis: none Deformity: none Alignment: normal Palpation Right Tenderness: none Assessment/Plan Encounter Diagnoses: ICD-10-CM 1. Closed nondisplaced fracture of base of fifth metacarpal bone of left hand with routine healing,subsequent encounter S62.347D 2. Closed nondisplaced fracture of [...] Capillary refill: <3 sec documented in this encounterSSM Health [id number] History of Present illness Narrative* Zulema Mackay NP - 09/16/2024 10:00 AM EST Images from the original note were not included. Subjective Patient ID: Emigdio Apodaca is a 59 y.o. female. LT hand [...] today, goes to 5-6/10 with spasms. TX: XR/06/19/24/[facility] LT hand, RT knee, LT shoulder, [facility] ER 06/19/24, norco, IBU, XR NOMS 07/22/24, XRNOMS 08/19/[address] RT knee [facility] 07/05/24 [...] Fell landing on her left hand and rightknee. DOI 06/19/24, she then hit her chest [...] 06/19/24, norco, IBU, XR NOMS 06/24, CT TBH1, XR NOMS 08/07/24 RT elbow Pt notes [...] x-rays. There is increased callus formation at thefracture site compared to prior x- rays. There was no acute bony process including but not limited to displacement of current fracture and/or new fracture. Impression: Healing fracture inferior pole right patella. Assessment/Plan Encounter Diagnoses: ICD-10-CM 1. Closed nondisplaced fracture of base of fifth metacarpal bone of left hand with routine healing,subsequent encounter S62.347D XR hand 3+ views left [...] Capillary refill: <3 sec documented in this encounterSSM Health [id number] History of Present illness Narrative* Zulema Mackay NP - 08/19/2024 12:30 PM EST Images from the original note were not included. Subjective Patient ID: Emigdio Apodaca is a 58 y.o. female. LT hand [...] numbness in the thumb. Denies swelling. TX: XR/06/19/24/[facility] LT hand, RT knee, LT shoulder, [facility] ER 06/19/24, norco, IBU, XR NOMS 07/22/24, XRNOMS 08/19/24 RT Elbow Pt notes she fell [...] performed on August 19, 2024 demonstrates callus formationat the base of the 5th Metacarpal. No other fractures noted, no swelling Impression Healing base of 5th MC fracture. Zulema Mackay DIRECTOR [employer] Assessment/Plan Encounter Diagnoses: ICD-10-CM 1. Right elbow pain M25.521 2. Closed nondisplaced fracture of base of fifth metacarpal bone of left hand with routine healing,subsequent encounter S62.347D XR hand 3+ views left [...] of the left hand documented in this encounterSSM Health [id number] History of Present illness Narrative* Zulema Mackay NP - 08/07/2024 11:00 AM EST Images from the original note were not included. Subjective Patient ID: Emigdio Apodaca is a 58 y.o. female. RT Knee CT RT knee [facility] 07/05/24 Notes she started taking fosamax [...] 06/19/24, norco, IBU, XR NOMS 06/24, CT TBH1, XR NOMS 08/07/24 RT elbow Pt notes [...] Suspected healing non displaced patella fracture Zulema Mackay DIRECTOR [employer] XR elbow 1 or 2 views right Imaging Result: Xrays AP and LAT of the right elbow performed on August 07, 2024 demonstrates no swelling, no fractures appreciated, joint congruent. Impression Unremarkable xrays of the right elbow Zulema Mackay DIRECTOR [employer] Assessment/Plan Encounter Diagnoses: ICD-10-CM 1. Closed nondisplaced [...] how she is doing. documented in this encounterSSM Health [id number] History of Present illness Narrative* Zulema Mackay NP - 07/22/2024 12:30 PM EDT Images from the original note were not included. Subjective Patient ID: Emigdio Apodaca is a 58 y.o. female. LT hand [...] numbness in the thumb. Denies swelling. TX: XR/06/19/24/[facility] LT [...] Healing 5th MC base fracture. Zulema Mackay DIRECTOR [employer] Assessment/Plan Encounter Diagnoses: ICD-10-CM 1. Left hand pain M79.642 XR hand 3+ views left 2. Contusion of dorsum of left hand S60.222A 3. Closed nondisplaced fracture of base of fifth metacarpal bone of left hand with routine healing,subsequent encounter S62.347D LT hand Discussed fracture care [...] of the left hand documented in this encounterSSM Health [id number] History of Present illness Narrative* Zulema Mackay NP - 07/10/2024 12:15 PM EDT Images from the original note were not included. Subjective Patient ID: Emigdio Apodaca is a 58 y.o. female. RT Knee [...] HOSPITAL LT hand, RT knee, LT shoulder, [facility] ER 06/19/24, norco, IBU, XR NOMS 06/24, [facility] Objective Ortho Exam Knee Musculoskeletal Exam Gait [...] or polycentric), positional orthosis, rigid support, prefabricated, [id number] knee brace. Brace is locked at 0 (degrees). Patient is unable to allow for motion 24 hours per day . Due to the patient's diagnosis and related symptoms this is medically necessary for treatment. The function of this deviceis to restrict and limit motion, provide stabilization, and immobilization to allow for full and proper healing. The goals and function-of this device were explained in detail to the patient. They were able to apply the device properly themselves without issue. At the time the device was dispensed,it was suitable for the condition and was not substandard. No guarantees were given and precautionswere reviewed. Written instructions and warranty information was [...] wbat in the brace documented in this encounterSSM Health [id number] History of Present illness Narrative* Zulema Mackay NP - 06/24/2024 10:30 AM EDT Images from the original note were not included. Subjective Patient ID: Emigdio Apodaca is a 58 y.o. female. LT hand/RT [...] xrays done and given script for norco #12 and also ibu. LT Hand Pt is RT handed. Presents with ENRIKE wrap which she wears all the time since going to the hospital except at night sheremoves it, sometimes she does not sleep with it. She has not injured this hand in the past. Pain at rest 8/10. Pain at worst 10/10 with certain movements. Constant pain diffuse in hand and wrist. Admits constant numbness in all fingers and hand since thefall. Admits constant swelling in her hand and fingers. She is icing w/o relief. Admits IBU w/o relief. Admits waking at night. TX: XR/06/19/24/[facility] LT hand, RT knee, LT shoulder, [facility] ER 06/19/24, norco, IBU, RT Knee She [...] HOSPITAL ER 06/19/24, norco, IBU, XR NOMS 06/24 [...] xrays of the left hand done at [facility] on 06/19/24 reveals possible 5th MC fracture. I reviewed the xrays of the right knee and reveals possible patella fracture. I reviewed the xrays of the left shoulder and reveals AC and GH arthritis, no fractures noted. I reviewed [facility] ER report from 06/19/24 in addtion, [...] of the left hand documented in this encounterSSM Health [id number] History of Present illness Narrative* Zoila Monae MD - 06/13/2024 12:30 PM EDT [facility] Follow up/ Established patient visit Individuals who were included in, or assisted with the encounter were: Emigdio Apodaca Zoila Monae MD Chief Complaint/Issues: Emigdio Apodaca is a 58 year old female seen in the [facility]rology for: Staring spells. Most [...] Ht 152.3 cm (4' 11.96 ) Wt 46.3kg (102 lb 2.9 oz) LMP (LMP Unknown) BMI 19.98 kg/m General: Awake, alert, interactive, no acute distress, good nutritional status, normal development,well-kept Neurological Exam Mental Status Alert, fully oriented, attentive, with normal cognition, memory, speech and affect. Cranial Nerves Visual wright intact. Pupils reactive. Extraocular movements conjugate and full. No ptosis. No nystagmus. Facial sensation intact. Face symmetric and strong. Palate and tongue normal. XI normal. Motor Examination and Coordination Motor examination with normal bulk, strength and tone. No drift. Normal rapid alternating movementsand coordination. No adventitious movements or significant tremor. [...] that she can have it done in [place] but she would rather come here. She [...] mcg/actuation inhaler Inhale 1 Puff as instructed asneeded for wheezing/shortness of breath. buPROPion XL (WELLBUTRIN [...] which included preparing to see the patient, jhso-pj-chfz patient care, completing clinical documentation, obtaining and/or reviewing separately obtained history, performing a medically appropriate examination, counseling and educating the pat ient/family/caregiver, ordering medications, tests, or procedures, communicating with other HCPs (not separately reported), and communicating results to the patient/family/caregiver. Zoila Monae MD documented [facility] NoteHNO ID: [id number] Author: ZOILA MONAE MD Service: ? Author Type: Physician Type: Progress Notes Filed: 06/13/2024 13:41 Note Text: [facility] Follow up/ Established patient visit Individuals who were included in, or assisted with the encounter were: Emigdio Apodaca Zoila Monae MD Chief Complaint/Issues: Emigdio Apodaca is a 58 year old female seen in the [facility] for: Staring spells. Most [...] that she can have it done in [place] but she would rather come here. She [...] Take 100 mg b (more content not included)...[facility]09-10-2024 NoteHNO ID: [id number] Author: NARCISA YUSUF MD Service: Neurology General Author Type: Physician Type: Procedures Filed: 06/13/2024 13:25 Note Text: [facility] - Electroencephalogram EMIGDIO APODACA : 1965 AGE: 58 SEX: F CSN: [id number] [facility] SVC: LOCATION: ATTENDING PHYSICIAN: DATE OF [...] have been noted. Narcisa Yusuf M.D. Neurology HK:[id number] Telephone encounter Note* Telephone Encounter - Zolia Monae MD - 06/04/2024 1:21 PM EDT A new neuropsych order has been put in. Thanks Zoila Monae MD [facility] Work Phone: 1(507) 713-914709-03-2024 Miscellaneous Notes* Telephone Encounter - Zoila Monae MD - 06/04/2024 1:21 PM EDT A new neuropsych order has been put in. Thanks Zoila Monae MD documented in this [facility]-2024 NoteHNO ID: [id number] Author: ZOILA MONAE MD Service: ? Author Type: Physician Type: Progress Notes Filed: 06/04/2024 13:22 Note Text: Neuropsychology order had when they tried to get her in. A new order has been put in and good for a year. Zoila Monae [facility]09-03-2024 History of Present illness Narrative* Zoila Monae MD - 06/04/2024 1:18 PM EDT Neuropsychology order had when they tried to get her in. A new order has been put in and good for a year. Zoila Monae MD documented in this encounterSouth[facility]08-27-2024 Telephone encounter Note * Telephone Encounter - Iveth Salazar - 05/28/2024 9:17 AM EDT Call center called the office on patients behalf stating they tried to schedule NEUROPSYCHOLOGICAL TESTING CONSULT But the test is booking out further than the active request. Would need it re ordered for scheduling. [facility]08-27-2024 Miscellaneous Notes* Telephone Encounter - Kyle Salazaryssa - 05/28/2024 9:17 AM EDT Call center called the office on patients behalf stating they tried to schedule NEUROPSYCHOLOGICAL TESTING CONSULT But the test is booking out further than the active request. Would need it re ordered for scheduling. documented in this encounterSouth[facility]06-05-2024 History of Present illness Narrative* Zoila Monae MD - 03/06/2024 2:00 PM EDT Images from the original note were not included. [facility] General Neurology New Patient Evaluation Consulting Provider: Tony Amaya [facility] [address] The patient presents with a chief complaint [...] year old Rh female seen in the [facility] for: Cognitive evaluation and dementia HPI: Partner noticed like she would not be focused, staring off into space, she loses things a lot.She is starting to talk to herself. She [...] partner to cut the pills in half andgive her 12.5 mg tid for now. Sometimes she is doing something and then she will start staring off into space and she has never done that before. Started about six months ago. Never had a seizure in her life. If she is doing thisher partner can move her hands in front of her eyes and she will startle. NO wandering behavior. She does not cook now as her kids are grown, and she has been eating peanut butter sandwiches. Has weighed usually 105 but now weighs 99 lbs ( it is not unusual for her to lose a few lbs in the summer).They have lived together for 25 yrs and [...] for low IQ. She worked in a [employer] shop and only worked 6 months. She [...] no acute distress, good nutritional status, normal development,well-kept Neurological Exam Mental Status Alert, fully oriented, [...] and tone. No drift. Normal rapid alternating movementsand coordination. No adventitious movements or significant tremor. [...] and no carotid or cranial bruit auscultated [place] Cognitive Assessment (MoCA) Version 1 Total Score: 17/30 Visuospatial/Executive Alternating [place] Making: Patient successfully draws the pattern without [...] fabric' (0) Word 3: Required multiple choice- 'congregational, school, hospital' (0) Word 4: Required category cue- 'type of flower' (0) Word 5: Required category cue- 'a color' (0) Delayed Recall Score: 0/5 Orientation The patient was able to answer correctly: exact date, month, year, exact place (name of hospital, clinic, office). Orientation Score: 6 Education less than or equal to 12th [...] signed: Karthikeyan Linn. Outside Data/Labs: 01/2024 at [facility]: Tox screen negative, Etoh negative, CBC is normal, CMP is normal, Folate 34, B12 148, TSH 0.01 IMPRESSION: Unremarkable intracranial CT angiogram. Unremarkable unenhanced CT of the brain. Unremarkable extracranial CT angiogram Subjective Patient-Entered Data: 03/04/24 - GENERAL NEUROLOGY SCORES I spent a total of 55 minutes on the date of the service which included preparing to see the patient, [id number]-gn-phmi patient care, completing clinical documentation, obtaining and/or reviewing separately obtained history, performing a medically appropriate examination, counseling and educating the pat ient/family/caregiver, ordering medications, tests, or procedures, communicating with other HCPs (not separately reported), and communicating results to the patient/family/caregiver. Zoila Monae MD documented in this encounterSouth[facility] Center06-05-2024 NoteHNO ID: [id number] Author: ZOILA MONAE MD Service: ? Author Type: Physician Type: Progress Notes Filed: 03/06/2024 15:39 Note Text: [facility] New Patient Evaluation Consulting Provider: Tony Amaya [address] [facility] [address] The patient presents with a chief complaint [...] year old Rh female seen in the [facility] for: Cognitive evaluation and [...] for low IQ. She worked in a [employer] and only worked 6 months. She [...] and no carotid or cranial bruit auscultated [place] Cognitive Assessment (MoCA) Version 1 Total Score: 17/30 Visuospatial/Executive Alternating [place] Making: Patient successfully draws the (more content not included)...[facility]05-21-[facility]24 NoteProcedure ECG 12 lead Performed by: Regan Aldana NP Authorized by: Cassandra Alcantara MD ECG interpreted by ED Physician in the absence of a esol instructor: yes Rate: ECG rate: 79 ECG rate assessment: normal Rhythm: Rhythm: sinus rhythm and paced Pacing: Capture: Complete Type of pacing: Atrial Ectopy: Ectopy: none QRS: QRS axis: Normal QRS intervals: Normal QRS conduction: normal ST segments: ST segments: Normal T waves: T waves: normal Regan Aldana NP 02/20/24 [facility]11-11-2022 History and physical note Author Rodolfo Harley [facility] August 12, 2022 1:45pm Note Date/Time August 04, 2022 3 :52pm [facility] [address] [place] [address] Cardiothoracic Surgery H&P Signed Patient: Emigdio Apodaca MR#: [id number] : 1965 Acct:[id number] Age/Sex: 56 / F Adm Date: 2 Loc: [place] Room: Type: PRE SDC Attending Dr: Rodolfo [...] IgG IgM and IgA were all negative. Anti-SD-3 antibodies were 5.0. ?P ANCA was 1:80. [...] 2020 in the left chest from a esol instructor at [facility] patient was unable to [...] patient had normal TSHlevel on 07/04/22 from [facility]. We will give 100 mg of IV Solu-Cortef on-call to the OR. We will utilize vancomycin and Levaquin given the questionable history of penicillin allergy with hives as a baby, although she states she recently had penicillin without issues. Documented By: Rodolfo Harley MD 08/04/22 1223 Signed By: <Electronically signed by MD Rodolfo Harley> 08/12/[address] [facility] Work Phone: 1(861) 754-514111-11-2022 Hospital Discharge instructionsAmbulatory Orders* Initiate Home Health Time Frame: 08/12/22, Location: Determined By Patient Additional Instructions no lifting 5-10 lbs. Continue Peridex mouthwash. May remove dressing tomorrow. Daily showers with Betasept wash. No driving.[facility] Work Phone: 1(376) 436-447511-11-2022 Progress note Author Monika Meza [facility] August 12, 2022 11:59am Note Date/Time August 12, 2022 8:13am [facility] [address] [place] [address] Pulmonology Progress Note Signed Patient: Emigdio Apodaca MR#: [id number] : 1965 Acct:[id number] Age/Sex: 56 / F Adm Date: 2 Loc: Room: [address] [place] [address] Type: REG SDC Attending Dr: Rodolfo Harley [...] <Electronically signed by MD Monika Meza> 08/12/[address] [facility] Work Phone: 1(753) 129-114211-10-2022 Progress note Author Monika Meza [facility] August 11, 2022 10:07am Note Date/Time August 11, 2022 7:43am [facility] [address] [place] [address] Pulmonology Progress Note Signed Patient: Emigdio Apodaca MR#: [id number] : 1965 Acct:[id number] Age/Sex: 56 / F Adm Date: 2 Loc: Room: [address] [place] [address] Type: REG SDC Attending Dr: Rodolfo Harley [...] otherwise. Documented By: Monika Meza MD 2 0742 Signed By: <Electronically signed by MD Monika Meza> 08/11/[address] [place] [address] Work Phone: 1(644) 188-632411-09-2022 Consult note Author Monika Meza [facility] August 10, 2022 5:46pm Note Date/Time August 10, 2022 5 :41pm [facility] [address] [place] [address] Pulmonology Consult Note Signed Patient: Emigdio Apodaca MR#: [id number] : 1965 Acct:[id number] Age/Sex: 56 / F Adm Date: 2 Loc: Room: [address] [place] [address] [facility]: Rodolfo Harley MD Copies to: Rodolfo J MD Monika Harley MD Douglas M Hoy, MD~ HPI Date/Time [...] been [place] Nadege [place] with complaints of dyspnea on exertion as [...] able. Documented By: Monika Meza MD 2 1735 Signed By: <Electronically signed by MD Monika Meza> 08/10/22 1746 [facility] Work Phone: Evaluation noteNo assessment information available [facility] Work Phone: Evaluation note* Diagnosis Onset Date Resolution Status Bipolar 1 disorder acute Bronchiectasis acute Hypercholesteremia acute Hypothyroidism acute Interstitial lung disease ac [facility] Work Phone: Evaluation note* Diagnosis Onset Date Resolution Status Bipolar 1 disorder acute Hypercholesteremia acute Hypothyroidism acute Interstitial lung disease ac [place] Bipolar 1 disorder acute Bronchiectasis acute Hypercholesteremia acute Hypothyroidism acute Interstitial lung disease ac [facility] Work Phone: Evaluation note* Diagnosis Memory deficit- Primary Memory loss Auditory hallucinations Hallucinations Mentally challenged Unspecified intellectual disabilities [facility] encounter [facility] Diagnosis Memory deficit- Primary Memory loss Auditory hallucinations Hallucinations Mentally challenged Unspecified intellectual disabilities [facility] encounter [facility] Diagnosis Memory deficit Memory loss Auditory hallucinations Hallucinations documented [facility] encounter [facility] Diagnosis Transient neurological symptoms- Primary [facility] encounter [facility] Diagnosis Closed nondisplaced fracture of right patella, unspecified fracture morphology, initial encounter- Primary Right knee pain, unspecified chronicity documented in this encounter [facility] HealthcareEvaluation note* Diagnosis Left hand pain- Primary Pain in soft tissues of limb Contusion of dorsum of left hand Closed nondisplaced fracture of base of fifth metacarpal bone of left hand with routine healing, subsequent encounter documented in this encounter [facility] HealthcareEvaluation note* Diagnosis Right elbow pain- Primary Pain in joint, upper arm Closed nondisplaced fracture of base of fifth metacarpal bone of left hand with routine healing, subsequent encounter documented in this encounter [facility] HealthcareEvaluation note* Diagnosis Closed nondisplaced fracture of right patella with routine healing, unspecified fracture morphology, subsequent encounter- Primary Right elbow pain Pain in joint, upper arm documented in this encounter [facility] HealthcareEvaluation note* Diagnosis Left hand pain- Primary Pain in soft tissues of limb Right knee pain, unspecified chronicity Contusion of right knee, initial encounter Contusion of dorsum of left hand Left shoulder pain, unspecified chronicity 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, left documented in this encounter [facility] HealthcareEvaluation note* Diagnosis Closed nondisplaced fracture of base of fifth metacarpal bone of left hand with routine healing, subsequent encounter- Primary Closed nondisplaced fracture of right patella with routine healing, unspecified fracture morphology, subsequent encounter documented in this encounter [facility] HealthcareEvaluation note* Diagnosis Closed nondisplaced fracture of base of fifth metacarpal bone of left hand with routine healing, subsequent encounter- Primary Closed nondisplaced fracture of right patella with routine healing, unspecified fracture morphology, subsequent encounter documented in this encounter [facility] HealthcareEvaluation note* Diagnosis Finger stiffness, left- Primary Closed nondisplaced fracture of base of fifth metacarpal bone of left hand with routine healing, subsequent encounter documented in this encounter [facility]* Diagnosis Finger stiffness, left- Primary documented in this encounter [facility] HealthcareEvaluation note* Diagnosis Finger stiffness, left- Primary documented in this encounter [facility]* Diagnosis Finger stiffness, left- Primary documented in this encounter [facility]Evaluation note* Diagnosis Finger stiffness, left- Primary Closed nondisplaced fracture of base of fifth metacarpal bone of left hand with routine healing, subsequent encounter- Primary Closed nondisplaced fracture of right patella with routine healing, unspecified fracture morphology, subsequent encounter documented in this encounter [facility] HealthcareEvaluation note* Diagnosis Closed nondisplaced fracture of base of fifth metacarpal bone of left hand with routine healing, subsequent encounter- Primary Closed nondisplaced fracture of right patella with routine healing, unspecified fracture morphology, subsequent encounter Numbness and tingling in left hand Disturbance of skin sensation documented in this encounter [facility] HealthcareEvaluation note* Diagnosis Numbness and tingling in left hand Disturbance of skin sensation documented in this encounter [facility] HealthcareEvaluation note* Diagnosis Carpal tunnel syndrome on left- Primary Carpal tunnel syndrome Pain in left hand documented in this encounter [facility] HealthcareEvaluation note* Diagnosis Preop examination- Primary Unspecified pre-operative examination documented in this encounter [facility] HealthcareReason for referral (narrative)* Outpatient Procedure (Routine) - Authorized Specialty Diagnoses / Procedures Referred By Contac t Referred To Contact [facility] Diagnoses Memory deficit Auditory hallucinations Procedures EPIL EEG ROUTINE ELECTROENCEPHALOGRAM REC COMA/[place] [address] [place] [address] [place] [address] Referral ID Status Reason Start Date Expiration Date Visits Requested Visits Authorized [id number] Authorized Auto-Generat ed Referral 03/06/2024 03/06/2025 1 [...] EA ADDL 30 [place] [address] [id number] Referral ID Status Reason Start Date Expiration Date Visits Requested Visits Authorized [id number] Ref Not Required PCP Requested Referral 03/06/2024 06/04/2024 1 3 [facility] for referral (narrative)* Outpatient Procedure (Routine) - Closed Specialty Diagnoses / Procedures Referred By Contac t Referred To Contact [facility] Diagnoses Memory deficit Auditory hallucinations Procedures EPIL EEG ROUTINE ELECTROENCEPHALOGRAM REC COMA/[place] [address] [id number] [place] [address] Referral ID Status Reason Start Date Expiration Date V isits Requested Visits Authorized [id number] Closed Auto-Generate d Referral 03/06/2024 03/06/2025 1 1 [facility] for visit Narrative* Outpatient Procedure (Routine) - Closed Specialty Diagnoses / Procedures Referred By Contac t Referred To Contact [facility] Diagnoses Memory deficit Auditory hallucinations Procedures EPIL EEG ROUTINE ELECTROENCEPHALOGRAM REC COMA/[place] [address] [id number] [place] [address] Referral ID Status Reason Start Date Expiration Date V isits Requested Visits Authorized [id number] Closed Auto-Generate d Referral 03/06/2024 03/06/2025 1 1 [facility] for visit Narrative* Consultation (Routine) - Authorized Specialty Diagnoses / Procedures Referred By Contac t Referred To Contact Occupational Therapy / Physical Therapy Diagnoses Closed nondisplaced fracture of base of fifth metacarpal bone of left hand with routine healing, subsequent encounter Procedures SD OFFICE/OUTPATIENT NEW HIGH MDM 60 MINUTES Apling, Zulema B, PAIN MANAGEMENT PHYSICIAN [address] [place] [address] Phone: tel: fax:[phone] Zehra Bunch, OT [address] [place] [address] Phone: tel: fax:[phone] Referral ID Status Reason Start Date Expiration Date Visits Requested Visits Authorized [id number] Authorized Consult and Treat 10/07/2024 04/05/2025 8 8 [facility] N[facility]* Consultation (Routine) - Authorized Specialty Diagnoses / Procedures Referred By Chris cadena Referred To Contact Occupational Therapy / Physical Therapy Diagnoses Closed nondisplaced fracture of base of fifth metacarpal bone of left hand with routine healing, subsequent encounter Procedures SD OFFICE/OUTPATIENT NEW HIGH MDM 60 MINUTES Zulema Mackay NP [address] [facility] [address] [place] [address] Phone: tel: fax: Zehra Bunch, OT [address] [place] [address] Phone: tel:[phone] fax:[phone] Referral ID Status Reason Start Date Expiration Date Visits Requested Visits Authorized [id number] Authorized Consult and Treat 10/07/2024 10/01/2025 8 8 [facility] Narrative* Consultation (Routine) - Closed Specialty Diagnoses / Procedures Referred By Chris cadena Referred To Contact Neurology Diagnoses Numbness and tingling in left hand Procedures SD OFFICE/OUTPATIENT NEW HIGH MDM 60 MINUTES Zulema Mackay, PAIN MANAGEMENT PHYSICIAN fax: Monika Vargas, [address] [place] [address] Phone: tel: fax: Referral ID Status Reason Start Date Expiration Date V isits Requested Visits Authorized [id number] Closed Specialty Services Required 11/11/2024 05/10/2025 1 1 [facility] Summary Purpose Family History No Family History Records FoundNo Family History Records FoundNo Family History Records FoundNo Family History Records FoundNo Family History Records FoundNo Family History Records FoundNo Family History Records Found Advance Directives No Advanced Directives Records Found Advance Directive Response Recorded Date/ Time Advance Directives No August 05, 2022 8:18am Advance Directive Response Recorded Date/ Time Advance Directives No August 05, 2022 9:18am Hospital Course Note MR#: [id number] I [facility] Pt. Name: Emigdio Apodaca Admitted: 03/30/2020 [...] Interstitial lung disease Chief Complaint Admit Date November 14, 2024 12:25pm Unknown November 26, 2024 9:50pm Chief Complaint Admit Date Unknown November 26, 2024 9:50pm December 01, 2024 11:1 2am bipolar December 01, 2024 8:51 pm bipolar December 02, 2024 9:06 am Reason for Visit Admit Date Depression December 01, 2024 8:51 pm Suicidal ideation December 01, 2024 8:51 pm Reason for Referral Specialty Diagnoses / Procedures Referred By Contac t Referred To Contact Diagnoses Memory deficit Auditory hallucinations Procedures NEUROPSYCHOLOGICAL TESTING CONSULT NEUROBEHAVIORAL STATUS XM PHYS/QHP 1ST HOUR NEUROPSYCHOLOGICAL TST EVAL PHYS/QHP 1ST HOUR NEUROPSYCHOLOGICAL TST EVAL PHYS/QHP EA ADDL HR PSYCL/NRPSYCL TST TECH 2+ TST 1ST 30 MIN PSYCL/NRPSYCL TST TECH 2+ TST EA ADDL 30 [place] [address] [place] [address] Referral ID Status Reason Start Date Expiration Date Visits Requested Visits Authorized [id number] Ref Not Required PCP Requested Referral 06/04/2024 09/02/2024 1 3 Additional Source Comments INFORMATION SOURCE (unrecogn ized section and content) DATE CREATED AUTHOR 04/23/2020 [facility] DATE CREATED AUTHOR AUTHOR'S ORGANIZ ATION 01/07/2023 [facility] DATE CREATED AUTHOR AUTHOR'S ORGANIZ ATION 06/15/2024 [facility] DATE CREATED AUTHOR AUTHOR'S ORGANIZ ATION 09/22/2024 [facility] DATE CREATED AUTHOR AUTHOR'S ORGANIZ ATION 01/08/2025 [facility] DATE CREATED AUTHOR AUTHOR'S ORGANIZ ATION 02/15/2025 [facility] DATE CREATED AUTHOR AUTHOR'S ORGANIZ ATION 02/18/2025 [facility] dical Specialists EPIC Care Teams (unrecognized sec [...] MD Attending Provider Active Allyssa Washburn APRN [facility]- Other Provider Active Jonah Badillo MD Other [...] Active Rodolfo Harley MD Attending Provider Active Channel Director Relationship Specialty Start Date End Date Tony Amaya MD [address] [place] [address] Referring Family Medicine 02/09/24 Channel Director Relationship Specialty Start Date End Date Tony Amaya MD [address] [place] [address] Referring Family Medicine 02/09/24 Channel Director Relationship Specialty Start Date End Date Tony Amaya MD [address] [place] [address] Referring Family Medicine 02/09/24 Channel Director Relationship Specialty Start Date End Date Tony Amaya MD [address] [place] [address] Referring Family Medicine 02/09/24 Channel Director Relationship Specialty Start Date End Date Tony Amaya MD [address] [place] [address] PCP - General Family Medicine 06/13/24 Tony Amaya MD [address] [place] [address] Referring Family Medicine 02/09/24 Channel Director Relationship Specialty Start Date End Date Tony Amaya MD [address] [place] [address] PCP - General Family Medicine 06/24/24 Channel Director Relationship Specialty Start Date End Date Tony Amaya MD [address] [place] [facility] [address] PCP - General Family Medicine 06/24/24 Channel Director Relationship Specialty Start Date End Date Tony Amaya MD [address] [place] [facility] [place] [address] PCP - General Family Medicine 06/24/24 Channel Director Relationship Specialty Start Date End Date Tony Amaya MD [address] [place] [facility] [place] [address] PCP - General Family Medicine 06/24/24 Channel Director Relationship Specialty Start Date End Date Tony Amaya MD [address] [place] [facility] [place] [address] PCP - General Family Medicine 06/24/24 Channel Director Relationship Specialty Start Date End Date Tony Amaya MD [address] [place] [facility] [place] [address] PCP - General Family Medicine 06/24/24 Channel Director Relationship Specialty Start Date End Date Tony Amaya MD [address] [place] [facility] [place] [address] PCP - General Family Medicine 06/24/24 Channel Director Relationship Specialty Start Date End Date Tony Amaya MD [address] [place] [facility] [place] [address] PCP - General Family Medicine 06/24/24 Channel Director Relationship Specialty Start Date End Date Tony Amaya MD [address] [place] [facility] [place] [address] PCP - General Family Medicine 06/24/24 Channel Director Relationship Specialty Start Date End Date Tony Amaya MD [address] [facility] [place] [address] PCP - General Family Medicine 06/13/24 Tony Amaya MD [address] [facility] [place] [address] Referring Family Medicine 02/09/24 Channel Director Relationship Specialty Start Date End Date Tony Amaya MD [address] [place] [facility] [place] [address] PCP - General Family Medicine 06/24/24 Channel Director Relationship Specialty Start Date End Date Tony Amaya MD [address] [place] [facility] [place] [address] PCP - General Family Medicine 06/24/24 Channel Director Relationship Specialty Start Date End Date Tony Amaya MD [address] [place] [facility] [place] [address] PCP - General Family Medicine 06/24/24 Channel Director Relationship Specialty Start Date End Date Tony Amaya MD [address] [place] [facility] [place] [address] PCP - General Family Medicine 06/24/24 Channel Director Relationship Specialty Start Date End Date Tony Amaya MD [address] [place] [facility] [place] [address] PCP - General Family Medicine 06/24/24 Channel Director Relationship Specialty Start Date End Date Tony Amaya MD [address] [place] [facility] [place] [address] PCP - General Family Medicine 06/24/24 Channel Director Relationship Specialty Start Date End Date Tony Amaya MD [address] [place] [facility] [place] [address] PCP - General Family Medicine 06/24/24 Channel Director Relationship Specialty Start Date End Date Tony Amaya MD [address] [place] [facility] [place] [address] PCP - General Family Medicine 06/24/24 Channel Director Relationship Specialty Start Date End Date Tony Amaya MD [address] [place] [facility] [place] [address] PCP - General Family Medicine 06/24/24 Channel Director Relationship Specialty Start Date End Date Tony Amaya MD [address] [place] [facility] [place] [address] PCP - General Family Medicine 06/24/24 Channel Director Relationship Specialty Start Date End Date Tony Amaya MD [address] [place] [facility] [address] PCP - General Family Medicine 06/24/24 Team Status: Active Member Role Status Dates Tony Amaya MD Primary Care Provider Active Start: November 14, 2024 Alejandro Maciel MD Attending Provider Active Start: November 14, 2024 Team Status: Inactive Member Role Status Dates Tony Amaya MD Attending Provider Active Sta rt: November 26, 2024 End: November 26, 2024 Channel Director Relationship Specialty Start Date End Date Tony Amaya MD [address] [place] [facility] [place] [address] PCP - General Family Medicine 06/24/24 Team Status: Active Member Role Status Dates Tony Amaya MD Primary Care Provider Active Start: December 01, 2024 Alejandro Maciel MD Attending Provider Active Start: December 01, 2024 Team Status: Inactive Member Role Status Dates Tony Amaya MD Primary Care Provider Active Start: December 01, 2024 End: December 04, 2024 Jaquan Babin MD Admit Provider, Atte nding Provider Active Start: December 01, 2024 End: December 04, 2024 Team Status: Active Member Role Status Dates Tony Amaya MD Primary Care Provider Active Start: December 02, 2024 Jaquan Babin MD Admit Provider, Atte nding Provider, Other Provider Active Start: December 02, 2024 Channel Director Relationship Specialty Start Date End Date Tony Amaya MD PCP - General Family Medicine 06/24/24 Channel Director Relationship Specialty Start Date End Date Tony Amaya MD PCP - General Family Medicine 06/24/24 Channel Director Relationship Specialty Start Date End Date Tony Amaya MD PCP - General Family Medicine 06/24/24 Goals [...] or prosecute any alcohol or drug abuse patient.[facility] the event this information is protected by the Federal Confidentiality of Alcohol and Drug Abuse Patient Records regulations: The Federal rules restrict any use of the information to criminally investigate or prosecute any alcohol or drug abuse patient.[facility] Center[facility] the event this information is protected by the Federal Confidentiality of Alcohol and Drug Abuse Patient Records regulations: The Federal rules restrict any use of the information to criminally investigate or prosecute any alcohol or drug abuse patient.[facility] the event this information is protected by the Federal Confidentiality of Alcohol and Drug Abuse Patient Records regulations: The Federal rules restrict any use of the information to criminally investigate or prosecute any alcohol or drug abuse patient.[facility] the event this information is protected by the Federal Confidentiality of Alcohol and Drug Abuse Patient Records regulations: The Federal rules restrict any use of the information to criminally investigate or prosecute any alcohol or drug abuse patient.[facility] Center[facility] the event this information is protected by the Federal Confidentiality of Alcohol and Drug Abuse Patient Records regulations: The Federal rules restrict any use of the information to criminally investigate or prosecute any alcohol or drug abuse patient.[facility] Reason for Visit (unrecogniz ed section and content) Reason Comments Dementia cognitive Reason Comments Follow Up Reason Comments Pain Reason Comments Fracture Reason Comments Follow-up Reason Onset Date Comments OT Initial Eval 10/08/2024 Reason Comments Follow-up Reason Onset Date Comments CX OT today 11/01/2024 Reason Comments Pre-op Exam FOR RECORDS PERTAINING TO PATIENTS WHO ARE [...] BE BASED ON THE PRIMARY CLINICAL RECORDS. [employer] [facility]. provides no warranty or guarantee of the accuracy or completeness of information in this document.
--- NOTE | 2025-02-19 22:03 | ECG_ITS ---
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 Measurements Intervals Brilliant Rate: 77 P: 71 NM: 144 QRS: 90 QRSD: 78 T: 76 QT: 362 QTc: 393 Interpretive Statements 1100 Sinus rhythm 9110 normal ECG Compared to ECG 02/19/2025 22:47:14 Atrial-paced complex(es) or rhythm no longer present Right-axis deviation no longer present Electronically Signed On 02-20-2025 7:04:45 EDT by LUIS ARMANDO DIAS M.D.
--- NOTE | 2025-02-19 22:05 | ED.SOB1 ---
HPI - SOB/Dyspnea General Chief Complaint: Shortness of Breath/Dyspnea Stated Complaint: COUGHING, SOB Time Seen by Provider: 02/19/25 21:35 Source: patient Mode of arrival: walk-in Limitations: no limitations History of Present Illness HPI Narrative: This 59-year-old female with a history of emphysema COPD who has never been a smoker presents for evaluation of 10 days of generalized illness. The patient states she has been sick since Mother's Day. On Mother's Day she had a fever with nausea and vomiting. Since that time she has been increasingly short of breath. She was seen by an orthopedic surgeon who referred her to her family physician due to her lung sounds. The patient is wheezing and rhonchorous. She feels short of breath with chest and back pain. She denies any dizziness or syncope. She denies any nausea vomiting or diarrhea. She has been taking [id number] DayQuil for her symptoms. She was seen earlier today by her family physician and referred to the emergency department after getting a breathing treatment. It was thought that at that time that she should be admitted for pneumonia but no additional testing had been ordered prior to her coming to the ER. Related Data Home Medications ?Medication ?Instructions ?Recorded ?Confirmed bupropion HCl 300 mg 24 hr tablet, 300 mg PO DAILY 09/25/23 02/19/25 extended release cholecalciferol (vitamin D3) 50 50 mcg PO DAILY 09/25/23 02/19/25 mcg (2,000 unit) capsule citalopram 20 mg tablet 20 mg PO DAILY 09/25/23 02/19/25 lamotrigine 25 mg tablet 50 mg PO BEDTIME 09/25/23 02/19/25 lansoprazole 30 mg capsule,delayed 30 mg PO DAILY 09/25/23 02/19/25 release levothyroxine 125 mcg tablet 125 mcg PO DAILY 09/25/23 02/19/25 simvastatin 20 mg tablet 20 mg PO QPM 09/25/23 02/19/25 docusate sodium 100 mg capsule 100 mg PO DAILY PRN constipation 12/22/23 02/19/25 (Col-Rite) loratadine 10 mg tablet (Allergy 10 mg PO DAILY 12/22/23 02/19/25 Relief (loratadine)) meclizine 25 mg tablet 25 mg PO QID PRN dizziness 07/19/24 02/19/25 alendronate 70 mg tablet 70 mg PO QWEEK 11/25/24 02/19/25 albuterol sulfate 2.5 mg/3 mL mg 02/19/25 (0.083 %) solution for nebulization benzonatate 200 mg capsule mg PO 02/19/25 ondansetron 4 mg disintegrating mg 02/19/25 tablet Previous Rx's ?Medication ?Instructions ?Recorded ciprofloxacin HCl 500 mg tablet 500 mg PO BID #14 tabs 11/27/24 (Cipro) oseltamivir 75 mg capsule 75 mg PO BID #6 caps 11/27/24 prednisone 10 mg tablet 40 mg (4 x 10 mg) PO DAILY #32 tabs 11/27/24 Allergies Allergy/AdvReac Type Severity Reaction Status Date / Time codeine Allergy Mild Vomiting Verified 02/19/25 21:38 oxycodone (From Percocet) Allergy Mild Vomiting Verified 02/19/25 21:38 promethazine Allergy Mild Agitated Verified 02/19/25 21:38 Sulfa (Sulfonamide Allergy Mild Vomiting Verified 02/19/25 21:38 Antibiotics) hydromorphone (From Dilaudid) AdvReac Mild Rash Verified 02/19/25 21:38 prochlorperazine (From AdvReac Mild Unknown Verified 02/19/25 21:38 Compazine) Review of Systems ROS Status of ROS 10 or more systems reviewed and unremarkable except as noted in history and below [facility] Medical History (Updated 02/19/25 @ 23:42 by Violetta Jones MD) Hypoxemia ?R09.02 - Hypoxemia (ICD-10) ESE (acute kidney injury) ?N17.9 - Acute kidney failure, unspecified (ICD-10) Flu ?J11.1 - Influenza due to unidentified influenza virus with other respiratory manifestations (ICD-10) GERD (gastroesophageal reflux disease) ?K21.9 - Gastro-esophageal reflux disease without esophagitis (ICD-10) Hypercholesterolemia ?E78.00 - Pure hypercholesterolemia, unspecified (ICD-10) Acute respiratory failure with hypoxia ?J96.01 - Acute respiratory failure with hypoxia (ICD-10) Respiratory distress ?R06.03 - Acute respiratory distress (ICD-10) Neutropenia ?D70.9 - Neutropenia, unspecified (ICD-10) Hypotension due to hypovolemia ?E86.1 - Hypovolemia (ICD-10) Gastroenteritis due to COVID-19 virus ?U07.1 - COVID-19 (ICD-10) ?A08.39 - Other viral enteritis (ICD-10) Dehydration ?E86.0 - Dehydration (ICD-10) ESE (acute kidney injury) ?N17.9 - Acute kidney failure, unspecified (ICD-10) Gastroenteritis ?K52.9 - Noninfective gastroenteritis and colitis, unspecified (ICD-10) COVID ?U07.1 - COVID-19 (ICD-10) COVID-19 ?U07.1 - COVID-19 (ICD-10) Effusion of knee joint right ?M25.461 - Effusion, right knee (ICD-10) Contusion of hand, left ?S60.222A - Contusion of left hand, initial encounter (ICD-10) Chest pain ?R07.9 - Chest pain, unspecified (ICD-10) Hypothyroid ?E03.9 - Hypothyroidism, unspecified (ICD-10) Esophagitis ?K20.90 - Esophagitis, unspecified without bleeding (ICD-10) Pancolitis ?K51.00 - Ulcerative (chronic) pancolitis without complications (ICD-10) Pulmonary hypertension ?I27.20 - Pulmonary hypertension, unspecified (ICD-10) Cholecystitis ?K81.9 - Cholecystitis, unspecified (ICD-10) Depression ?F32.A - Depression, unspecified (ICD-10) On home O2 ?Z99.81 - Dependence on supplemental oxygen (ICD-10) Hyperthyroidism ?E05.90 - Thyrotoxicosis, unspecified without thyrotoxic crisis or storm (ICD-10) Scoliosis ?M41.9 - Scoliosis, unspecified (ICD-10) Emphysema lung ?J43.9 - Emphysema, unspecified (ICD-10) Nausea & vomiting ?R11.2 - Nausea with vomiting, unspecified (ICD-10) Pacemaker ?Z95.0 - Presence of cardiac pacemaker (ICD-10) COPD (chronic obstructive pulmonary disease) ?J44.9 - Chronic obstructive pulmonary disease, unspecified (ICD-10) Surgical History History of tonsillectomy ?Z90.89 - Acquired absence of other organs (ICD-10) H/O right wrist surgery ?Z98.890 - Other specified postprocedural states (ICD-10) H/O colectomy ?Z90.49 - Acquired absence of other specified parts of digestive tract (ICD-10) Family History Mother Family history of COPD (chronic obstructive pulmonary disease) Grandmother Family history of cancer Sister Family history of diabetes mellitus Father Family history of myocardial infarction Social History (Updated 12/27/23 @ 23:45 by Meghana Lo) Within the past year, how often did you have a drink containing alcohol: never Within the past year, how often did you have six or more drinks on one occasion: never Score interpretation: A score less than 3 is consistent with normal alcohol consumption. 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 Known occupational exposures/hazards: No Highest level of school completed/degree received: 10th grade Do you want help with school or training: No Are you now , , , , never or living with a partner: In a typical week, how many times do you talk on the telephone with family, friends, or neighbors: 3 or more times per week How often do you get together with friends or relatives: 3 or more times per week How often do you attend hoahaoism or bahai services: 4 or more times per year Do you belong to any clubs or organizations such as hoahaoism groups unions, fraternal or athletic groups, or school groups: yes Total score: 3 Score interpretation: A score of greater than or equal to 2 indicates the lowest level of social isolation. Little interest or pleasure in doing things: not at all Feeling down, depressed, or hopeless: not at all Feel stressed/tense/nervous/anxious/difficulty sleeping: to some extent Life stressors: unknown source of stress Due to disability, difficulty making decisions: No Do you think of yourself as: bisexual Gender Identity: female Exam Narrative Exam Narrative: Vital signs and Nursing Notes reviewed: Patient is afebrile with a normal pulse, she is tachypneic with respirate of 32 and blood pressure is elevated 143/93, she is hypoxic upon arrival with pulse ox of 87% on room air. She was placed on supplemental oxygen with improvement in her pulse ox to 93 to 94% General: Awake, alert, oriented, nontoxic but moderately ill-appearing thin female with audible expiratory wheezing HEENT: Normocephalic atraumatic, mucous membranes are moist and pink, eyes are clear, normal conjunctiva, vision is grossly intact, posterior pharynx is normal in appearance. Neck: Supple, no meningeal signs, no anterior or posterior cervical lymphadenopathy Chest: Diffusely diminished breath sounds with expiratory wheezing and scattered rhonchi, no rales appreciated, there is mild accessory muscle use noted CVS: Regular rate and rhythm S1-S2, no murmurs rubs or gallops, pulses are brisk and equal bilaterally ABD: Soft, nondistended, nontender, no rebound guarding or rigidity, bowel sounds are normal, no pulsatile masses appreciated Extremities: Moving all extremities, no lower extremity tenderness or swelling noted, negative Homans' sign, pulses are brisk and equal bilaterally Skin: Normal in appearance without rash,pallor, petechiae or purpura Neuro: No focal deficits Constitutional Vital Signs, click to edit/add: Last Vital Signs Temp 97.8 F 02/19/25 21:32 Pulse 86 02/19/25 22:54 Resp 27 H 02/19/25 22:54 BP 143/93 H 02/19/25 21:34 Pulse Ox 93 L 02/19/25 23:17 O2 Del Method Nasal Cannula 02/19/25 23:17 O2 Flow Rate 2 02/19/25 23:17 Course Vital Signs Vital signs: Vital Signs Temperature 97.8 F 02/19/25 21:32 Pulse Rate 96 H 02/19/25 21:32 Respiratory Rate 32 H 02/19/25 21:32 Blood Pressure 143/93 H 02/19/25 21:32 Pulse Oximetry 87 L 02/19/25 21:32 Oxygen Delivery Method Room Air 02/19/25 21:32 Temperature 97.8 F 02/19/25 21:32 Pulse Rate 86 02/19/25 22:54 Respiratory Rate 27 H 02/19/25 22:54 Blood Pressure 143/93 H 02/19/25 21:34 Pulse Oximetry 93 L 02/19/25 23:17 Oxygen Delivery Method Nasal Cannula 02/19/25 23:17 Oxygen Delivery Flow Rate 2 02/19/25 23:17 MDM - SOB/Dyspnea MDM Narrative Medical decision making narrative: This 59-year-old female with a history of emphysema and COPD who has never been a smoker is brought to the emergency department by her mother for evaluation of generalized illness with cough wheezing and shortness of breath since Mother's Day, 10 days ago. She was seen at an orthopedics office and referred to her family physician's office where she was seen earlier today. It was thought at that time that she likely had pneumonia and she was referred to the emergency department. In the ER she is coughing with expiratory wheezing and hypoxic. She has diffuse wheezing and decreased breath sounds with mild accessory muscle use. She was given a DuoNeb treatment. EKG upon arrival was a sinus rhythm at 77 bpm. Septic workup was ordered due to the fact that she has been having fevers and chills and is now short of breath. She has a normal white count and hemoglobin. Electrolytes are normal. Troponin and BNP are normal. Lactic acid is normal. Two-view chest x-ray was ordered and reviewed by myself. I do not see any acute pulmonary infiltrate, pleural effusion or other notable abnormality. She was empirically treated for COPD exacerbation with bronchitis with Rocephin and Zithromax. On reevaluation she states she is feeling somewhat better. We will keep her on oxygen overnight. The case was discussed with the hospitalist and she is excepted for admission to [facility] status. Medical Records Attestation: I reviewed the patient's medical records. Lab Data Attestation: I reviewed the patient's lab results. Labs: Lab Results 02/19/25 Range/Units 21:50 WBC 7.6 (4.0-11.0) 10^3/uL RBC 5.00 (4.20-5.40) 10^6/uL Hgb 13.9 (12.0-16.0) g/dL Hct 42.7 (36.0-48.0) % MCV 85.4 (81.0-99.0) fL MCH 27.8 (26.7-34.0) pg MCHC 32.6 (29.9-35.2) g/dL RDW 13.1 (11.0-15.0) % Plt Count 276 (150-450) 10^3/uL MPV 9.3 L (9.5-13.5) fL Neut % (Auto) 74.4 (43.0-75.0) % Lymph % (Auto) 16.9 L (20.5-60.0) % Wayne % (Auto) 4.9 (1.7-12.0) % Eos % (Auto) 3.2 (0.9-7.0) % Baso % (Auto) 0.3 (0.2-2.0) % Neut # (Auto) 5.7 (1.4-6.5) 10^3/uL Lymph # (Auto) 1.3 (1.2-3.8) 10^3/uL Wayne # (Auto) 0.4 (0.3-0.8) 10^3/uL Eos # (Auto) 0.2 (0.0-0.7) 10^3/uL Baso # (Auto) 0.0 (0.0-0.1) 10^3/uL Abs Immat Gran (auto) 0.02 (0.00-0.03) 10^3/uL Imm/Tot Granulo (auto) 0.3 (0.0-0.5) % Sodium 141 (136-145) mmol/L Potassium 3.9 (3.5-5.1) mmol/L Chloride 104 (98-107) mmol/L Carbon Dioxide 28.7 (21.0-32.0) mmol/L Anion Gap 12.2 BUN 16.0 (7.0-18.0) mg/dL Creatinine 1.01 (0.55-1.02) mg/dL Est GFR ( Amer) >60 (>=60 mL/min/1.73m^2) Est GFR (Non-Af Amer) 56 L (>=60 mL/min/1.73m^2) BUN/Creatinine Ratio 15.8 Glucose 108 H (74-106) mg/dL Lactate 0.8 (0.4-2.0) mmol/L Calcium 9.6 (8.5-10.1) mg/dL Total Bilirubin 0.2 (0.2-1.0) mg/dL AST 19 (15-37) U/L ALT 17 (14-59) U/L Alkaline Phosphatase 112 (46-116) U/L Troponin I High Sens 4.6 (4.0-51.3) pg/mL NT-Pro-B Natriuret Pep 33.0 (<=900.0) pg/mL Total Protein 7.6 (6.4-8.2) g/dL Albumin 3.8 (3.4-5.0) g/dL Globulin 3.8 g/dL Albumin/Globulin Ratio 1.0 ECG Data Attestation: I personally reviewed and interpreted this ECG as follows: (Sinus rhythm at 77 bpm, normal axis, interpretation limited by patient movement, no acute ST segment elevation or T wave inversion) Discharge Plan Discharge Chief Complaint: Shortness of Breath/Dyspnea Clinical Impression: Acute exacerbation of chronic obstructive pulmonary disease (COPD), Acute bronchitis, Hypoxia Patient Disposition: Admitted as Observation Time of Disposition Decision: 23:42 Condition: Good
[2025-02-19 22:12] LABS: Basophils Percent Auto 0.3 % (0.2-2.0); Eosinophils Absolute Auto 0.2 10^3/uL (0.0-0.7); Eosinophils Percent Auto 3.2 % (0.9-7.0); Hematocrit 42.7 % (36.0-48.0); Hemoglobin 13.9 g/dL (12.0-16.0); Immature Granulocytes Abs Auto 0.02 10^3/uL (0.00-0.03); Immature Granulocytes Pct Auto 0.3 % (0.0-0.5); Lymphocytes Absolute Auto 1.3 10^3/uL (1.2-3.8); Lymphocytes Percent Auto 16.9 % (20.5-60.0); Mean Corpuscular HGB Conc 32.6 g/dL (29.9-35.2); Mean Corpuscular Hemoglobin 27.8 pg (26.7-34.0); Mean Corpuscular Volume 85.4 fL (81.0-99.0); Mean Platelet Volume 9.3 fL (9.5-13.5); Monocytes Absolute Auto 0.4 10^3/uL (0.3-0.8); Monocytes Percent Auto 4.9 % (1.7-12.0); Neutrophils Absolute Auto 5.7 10^3/uL (1.4-6.5); Neutrophils Percent Auto 74.4 % (43.0-75.0); Platelet Count 276 10^3/uL (150-450); Red Cell Distribution Width 13.1 % (11.0-15.0); White Blood Count 7.6 10^3/uL (4.0-11.0)
[2025-02-19] MEDS: IPRATROPIUM/ALBUTEROL SULFATE 3 ML AMPUL.NEB IH (22:29)
[2025-02-19 22:30] LABS: Alanine Aminotransferase 17 U/L (14-59); Albumin Level 3.8 g/dL (3.4-5.0); Alkaline Phosphatase 112 U/L (46-116); Anion Gap 12.2; Aspartate Amino Transferase 19 U/L (15-37); BUN Creatinine Ratio 15.8; Bilirubin Total 0.2 mg/dL (0.2-1.0); Calcium 9.6 mg/dL (8.5-10.1); Carbon Dioxide 28.7 mmol/L (21.0-32.0); Chloride 104 mmol/L (98-107); Estimated GFR (African America >60 (>=60 mL/min/1.73m^2); Estimated GFR (Non-African Ame 56 (>=60 mL/min/1.73m^2); Globulin 3.8 g/dL; Glucose 108 mg/dL (74-106); Potassium 3.9 mmol/L (3.5-5.1); Sodium 141 mmol/L (136-145); Total Protein 7.6 g/dL (6.4-8.2)
[2025-02-19 22:31] LABS: Lactate/Lactic Acid 0.8 mmol/L (0.4-2.0)
[2025-02-19 22:36] LABS: Troponin I High Sensitivity 4.6 pg/mL (4.0-51.3)
[2025-02-19] MEDS: MAGNESIUM SULFATE IN WATER 2 GM/50 ML PREMIX IV (22:38)
[2025-02-19] MEDS: ACETAMINOPHEN 325 MG TABLET 650 MG PO (22:39)
[2025-02-19] MEDS: METHYLPREDNISOLONE SOD SUCC PF 125 MG/2 ML VIAL IVP (22:39)
--- NOTE | 2025-02-19 23:12 | PC.NURSE ---
Patient seen at Dr. Turner (PCP) office today. Per patient, Dr. Turner told her she has pneumonia and needs to be admitted to hospital but he could not admit her. Per patient, Dr. Turner told her to come to ED this evening because he gave her a breathing treatment in office and her oxygen level would be too good for her to be admitted if she came to ED right after her appt. Patient states she has aerosol treatments at home but did not want to use them when her oxygen level dropped at home because she knew she would not be able to be admitted to the hospital if she used one and then came in to the ED. Per patient, Dr. Turner did not prescribe her an antibiotic or steroid in the office today because he wanted her to come to the ED and be admitted, and if that did not work, she is to return to his office in the morning for treatment at that time.
[2025-02-19] MEDS: CEFTRIAXONE 1,000 MG in 0.9 % SODIUM CHLORIDE 50 ML 100 MG IV (23:26)
[2025-02-19] MEDS: AZITHROMYCIN 500 MG in 0.9 % SODIUM CHLORIDE 250 ML 250 MG IV (23:56)
[2025-02-20] VITALS (16 sets, daily range): BP systolic 90–111; BP diastolic 50–65; PULSE 73–83; TEMP 36.5–36.8; O2SAT 87–97; BMI 20.1
--- OUTSIDE RECORDS SUMMARY | 2025-02-20 00:09 | XMS_ITS | CCD ---
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 [place] [address]DrChen Sharpjarrod Juan F MCH (RBC) [Entitic mass] 27.6 pg Normal 26.7-34.0 [facility] Comment on above: Performed By: #### C BC ####[facility] Ommhcfvvmr[address] [place], [place] [address]DrChen Rogel MCHC (RBC) [Mass/Vol] 31.9 g/dL Normal 29.9-35.2 [facility] Comment on above: Performed By: #### C BC ####[facility] Xwlxxfcblk[address] [place], [place] [address]DrChen Rogel MCV (RBC) [Entitic vol] 86.5 fL Normal 81.0-99.0 [facility] Comment on above: Performed By: #### C BC ####[facility] Qxbfeebztj5[address] [place] [address]DrChen Sharpjarrod Rogel MONO # 0.2 103/ul Critically low 0.3-0.8 [facility] Comment on above: Performed By: #### C BC ####[facility] Hpuczntber4637[address] [place], [place] [address]DrChen Rogel Monocytes/100 WBC (Bld) 5.0 % Normal 1.7-12.0 [facility] Comment on above: Performed By: #### C BC ####[facility] Fsbsdujgyu8074[address] [place], [place] [address]DrChen Sharpjarrod Juan F NEUT # 3.1 103/ul Normal 1.4-6.5 [facility] Comment on above: Performed By: #### C BC ####[facility] Pyjencwvnp1530[address] [place], [place] [address]DrChen Rogel Neutrophils/100 WBC (Bld) 76.6 % Critically high 43.0-75.0 [facility] Comment on above: Performed By: #### C BC ####[facility] Iakqyxaoul[address] [place], [place] [address]DrChen Rogel Platelet mean volume (Bld) [Entitic vol] 9.9 fL Normal 9.5-13.5 [facility] Comment on above: Performed By: #### C BC ####[facility] Favzewdqtt0664[address] [place], [place] [address]Dr. Shahbaz Rogel PLT 194 103/ul Normal 150-450 [facility] Comment on above: Performed By: #### C BC ####[facility] Dokupmddyx9594[address] [place], [place] [address]DrChen Rogel RBC 4.21 106/ul Normal 4.20-5.40 [facility] Comment on above: Performed By: #### C BC ####[facility] Osjitqzncz[address] [place], [place] [address]DrChen Rogel WBC 4.0 103/ul Normal 4.0-11.0 [facility] Comment on above: Performed By: #### C BC ####[facility] Migaasypil9088[address] [place], [place] [address]Dr. Lilajarrod Rogel PROF CHEM 8 (BAS METB)on Anion gap [Moles/Vol] 9.5 mmol/L Normal [facility] Comment on above: Performed By: #### B MP ####[facility] Vxnueurpdy59[address] [place], [place] [address]Dr. Shahbaz Rogel Calcium [Mass/Vol] 8.8 mg/dL Normal 8.5-10.1 [facility] Comment on above: Performed By: #### B MP ####[facility] Eodigabekp[address] [place], [place] [address]Dr. Shahbaz Rogel Chloride [Moles/Vol] 106 mmol/L Normal 98-107 [facility] Comment on above: Performed By: #### B MP ####[facility] Anwszjfptg3527[address] [place], [place] [address]Dr. Shahbaz Rogel CO2 [Moles/Vol] 29.6 mmol/L Normal 21.0-32.0 [facility] Comment on above: Performed By: #### B MP ####[facility] Lenzoopdig8543[address] [place], [place] [address]Dr. Shahbaz Rogel Creatinine [Mass/Vol] 0.80 mg/dL Normal 0.55-1.02 [facility] Comment on above: Performed By: #### B MP ####[facility] Wfwmxxcqqq30[address] [place], [place] [address]Dr. Shahbaz Rogel EGFR-AF [place] >60 Normal >=60 [facility] Comment on above: Performed By: #### B MP ####[facility] Crtcbpevlm6816[address] [place], [place] [address]Dr. Shahbaz Rogel EGFR-NON AF [place] >60 Normal >=60 [facility] Comment on above: Performed By: #### B MP ####[facility] Pvqqemglmf368[address] [place], [place] [address]Dr. Shahbaz Rogel Glucose [Mass/Vol] 137 mg/dL Critically high 74-106 [facility] Comment on above: Performed By: #### B MP ####[facility] Pfszbmzqry5717[address] [place], [place] [address]Dr. Shahbaz Rogel Potassium [Moles/Vol] 4.1 mmol/L Normal 3.5-5.1 [facility] Comment on above: Performed By: #### B MP ####[facility] Jdhevenbcn299[address] [place], [place] [address]Dr. Shahbaz Rogel Sodium [Moles/Vol] 141 mmol/L Normal 136-145 [facility] Comment on above: Performed By: #### B MP ####[facility] Bmsotmprek9665[address] [place], [place] [address]Dr. Shahbaz Rogel Urea nitrogen [Mass/Vol] 18.0 mg/dL Normal 7.0-18.0 [facility] Comment on above: Performed By: #### B MP ####[facility] Nnbxjmmpzv7933[address] [place], [place] [address]Dr. Shahbaz Rogel Urea nitrogen/Creatinine [Mass ratio] 22.5 mg/mg Normal [facility] Comment on above: Performed By: #### B MP ####[facility] Xefnycuruf1617[address] [place], [place] [address]Dr. Shahbaz Rogel CBC AUTO DIFFon 01-06-2023 BASO # 0.0 103/ul Normal 0.0-0.1 [facility] Comment on above: Performed By: #### C BC ####[facility] Eubgtsbqcm2770[address] [place], [place] [address]Dr. Shahbaz Rogel Basophils/100 WBC (Bld) 0.0 % Critically low 0.2-2.0 [facility] Comment on above: Performed By: #### C BC ####[facility] Ghhwrhkxng7[address] [place], [place] [address]Dr. Shahbaz Rogel EO # 0.0 103/ul Normal 0.0-0.7 [facility] Comment on above: Performed By: #### C BC ####[facility] Cotgsrdkig0539[address] [place], [place] [address]Dr. Shahbaz Rogel Eosinophils/100 WBC (Bld) 0.0 % Critically low 0.9-7.0 [facility] Comment on above: Performed By: #### C BC ####[facility] Wvzcllvpit029[address] [place], [place] [address]Dr. Shahbaz Rogel Erythrocyte distribution width (RBC) [Ratio] 13.8 % Normal 11.0-15.0 [facility] Comment on above: Performed By: #### C BC ####[facility] Oduiggpsfm4545[address] [place], [place] [address]Dr. Shahbaz Rogel Hematocrit (Bld) [Volume fraction] 36.9 % Normal 36.0-48.0 [facility] Comment on above: Performed By: #### C BC ####[facility] Yseybhvkzv[address] [place], [place] [address]Dr. Shahbaz Rogel Hemoglobin (Bld) [Mass/Vol] 11.8 g/dL Critically low 12.0-16.0 [facility] Comment on above: Performed By: #### C BC ####[facility] Xcrxzytzrt8124[address] [place], [place] [address]Dr. Shahbaz Rogel IG # 0.04 10e3/ul Critically high 0.00-0.03 [facility] Comment on above: Performed By: #### C BC ####[facility] Wsmqtmngdr9017[address] [place], [place] [address]Dr. Shahbaz Rogel IG % 1.1 % Critically high 0.0-0.5 [facility] Comment on above: Performed By: #### C BC ####[facility] Xhqzelhzuz6586[address] [place], [place] [address]Dr. Shahbaz Rogel LYMPH # 0.5 103/ul Critically low 1.2-3.8 [facility] Comment on above: Performed By: #### C BC ####[facility] Suragxjwiy0624[address] [place], [place] [address]Dr. Shahbaz Rogel Lymphocytes/100 WBC (Bld) 13.9 % Critically low 20.5-60.0 [facility] Comment on above: Performed By: #### C BC ####[facility] Xms[address]vw[address] [place], [place] [address]Dr. Lilajarrod Rogel MANUAL DIFF REQ NO Normal [facility] Comment on above: Performed By: #### C BC ####[facility] [address]je[address] [place] [address]Dr. Shahbaz Rogel MCH (RBC) [Entitic mass] 27.8 pg Normal 26.7-34.0 [facility] Comment on above: Performed By: #### C BC ####[facility] Hpdrcpllyz916[address] [place], [place] [address]Dr. Shahbaz Juan F MCHC (RBC) [Mass/Vol] 32.0 g/dL Normal 29.9-35.2 [facility] Comment on above: Performed By: #### C BC ####[facility] Fwecotgjgs8427[address] [place], [place] [address]Dr. Lilajarrod Rogel MCV (RBC) [Entitic vol] 86.8 fL Normal 81.0-99.0 [facility] Comment on above: Performed By: #### C BC ####[facility] Yxyjeflaeu17[address] [place], [place] [address]Dr. Lilajarrod Rogel MONO # 0.1 103/ul Critically low 0.3-0.8 [facility] Comment on above: Performed By: #### C BC ####[facility] Drgxgklyka[address] [place], [place] [address]Dr. Shahbaz Rogel Monocytes/100 WBC (Bld) 3.7 % Normal 1.7-12.0 [facility] Comment on above: Performed By: #### C BC ####[facility] Nvsrsmkhzc[address] [place], [place] [address]Dr. Shahbaz Rogel NEUT # 3.1 103/ul Normal 1.4-6.5 [facility] Comment on above: Performed By: #### C BC ####[facility] Tqdnwadfdd344[address] [place], [place] [address]Dr. Shahbaz Rogel Neutrophils/100 WBC (Bld) 81.3 % Critically high 43.0-75.0 [facility] Comment on above: Performed By: #### C BC ####[facility] Etxdepercn2086[address] [place], [place] [address]Dr. Shahbaz Rogel Platelet mean volume (Bld) [Entitic vol] 9.8 fL Normal 9.5-13.5 [facility] Comment on above: Performed By: #### C BC ####[facility] [address]flhzi[address] [place] [address]Dr. Shahbaz Rogel PLT 184 103/ul Normal 150-450 [facility] Comment on above: Performed By: #### C BC ####[facility] Zdvkqxczfo54[address] [place] [address]Dr. Shahbaz Rogel RBC 4.25 106/ul Normal 4.20-5.40 [facility] Comment on above: Performed By: #### C BC ####[facility] Ijtadovbby9[address] [place], [place] [address]Dr. Shahbaz Rogel WBC 3.8 103/ul Critically low 4.0-11.0 [facility] Comment on above: Performed By: #### C BC ####[facility] Wpeqsrysrk[address] [place], [place] [address]Dr. Shahbaz Rogel PROF CHEM 8 (BAS METB)on Anion gap [Moles/Vol] 9.2 mmol/L Normal [facility] Comment on above: Performed By: #### B MP ####[facility] Sqqzejqtmy8645[address] [place], [place] [address]Dr. Shahbaz Rogel Calcium [Mass/Vol] 8.6 mg/dL Normal 8.5-10.1 [facility] Comment on above: Performed By: #### B MP ####[facility] Lvnxdpyiha7646[address] [place], [place] [address]Dr. Shahbaz Rogel Chloride [Moles/Vol] 107 mmol/L Normal 98-107 [facility] Comment on above: Performed By: #### B MP ####[facility] Iqmxkvzbkk3487[address] [place], [place] [address]Dr. Shahbaz Rogel CO2 [Moles/Vol] 29.3 mmol/L Normal 21.0-32.0 [facility] Comment on above: Performed By: #### B MP ####[facility] Ykmczkdhof[address] [place], [place] [address]Dr. Shahbaz Rogel Creatinine [Mass/Vol] 0.79 mg/dL Normal 0.55-1.02 [facility] Comment on above: Performed By: #### B MP ####[facility] O[address]vhsaig[address] [place] [address]Dr. Lilajarrod Juan F EGFR-AF [place] >60 Normal >=60 [facility] Comment on above: Performed By: #### B MP ####[facility] Pksirasjtx20[address] [place] [address]Dr. Shahbaz Rogel EGFR-NON AF [place] >60 Normal >=60 [facility] Comment on above: Performed By: #### B MP ####[facility] Kkijystgto[address] [place], [place] [address]Dr. Shahbaz Rogel Glucose [Mass/Vol] 159 mg/dL Critically high 74-106 T [facility] Comment on above: Performed By: #### B MP ####[facility] Iwyvjnqjsr3[address] [place], [place] [address]Dr. Shahbaz Rogel Potassium [Moles/Vol] 3.5 mmol/L Normal 3.5-5.1 [facility] Comment on above: Performed By: #### B MP ####[facility] Nlycttqotp[address] [place], [place] [address]Dr. Shahbaz Rogel Sodium [Moles/Vol] 142 mmol/L Normal 136-145 [facility] Comment on above: Performed By: #### B MP ####[facility] Ffixyxhxzn[address] [place], [place] [address]Dr. Shahbaz Rogel Urea nitrogen [Mass/Vol] 21.0 mg/dL Critically high 7.0-18.0 [facility] Comment on above: Performed By: #### B MP ####[facility] Diznauetff004[address] [place], [place] [address]Dr. Shahbaz Rogel Urea nitrogen/Creatinine [Mass ratio] 26.6 mg/mg Normal [facility] Comment on above: Performed By: #### B MP ####[facility] Vtuqwnvtcr2165[address] [place], [place] [address]Dr. Shahbaz Rogel XR CHEST 2 Von 01-06-2023 XR CHEST 2 V Normal [facility] CBC AUTO DIFFon 01-05-2023 BASO # 0.0 103/ul Normal 0.0-0.1 [facility] Comment on above: Performed By: #### C BC ####[facility] Msminlzpdv7[address] [place] [address]Dr. Shahbaz Rogel Basophils/100 WBC (Bld) 0.2 % Normal 0.2-2.0 [facility] Comment on above: Performed By: #### C BC ####[facility] Xswveykbeb[address]50[address] [place], [place] [address]Dr. Shahbaz Rogel EO # 0.0 103/ul Normal 0.0-0.7 [facility] Comment on above: Performed By: #### C BC ####[facility] Ezeoyqzgoy[address] [place], [place] [address]Dr. Shahbaz Rogel Eosinophils/100 WBC (Bld) 0.0 % Critically low 0.9-7.0 [facility] Comment on above: Performed By: #### C BC ####[facility] Trtbfucmjq[address]59[address] [place], [place] [address]Dr. Shahbaz Rogel Erythrocyte distribution width (RBC) [Ratio] 13.6 % Normal 11.0-15.0 [facility] Comment on above: Performed By: #### C BC ####[facility] Clwccryrah8[address] [place], [place] [address]Dr. Shahbaz Rogel Hematocrit (Bld) [Volume fraction] 36.6 % Normal 36.0-48.0 [facility] Comment on above: Performed By: #### C BC ####[facility] Spcxxzxdbl0901[address] [place], [place] [address]Dr. Shahbaz Rogel Hemoglobin (Bld) [Mass/Vol] 11.6 g/dL Critically low 12.0-16.0 [facility] Comment on above: Performed By: #### C BC ####[facility] Paoadyvffy[address] [place], [place] [address]Dr. Shahbaz Rogel IG # 0.03 10e3/ul Normal 0.00-0.03 [facility] Comment on above: Performed By: #### C BC ####[facility] H[address]obbtqyr[address] [place] [id number]. Shahbaz Rogel IG % 0.5 % Normal 0.0-0.5 [facility] Comment on above: Performed By: #### C BC ####[facility] Ivhcrsnubx53[address] [place] [id number]. Shahbaz Rogel LYMPH # 0.6 103/ul Critically low 1.2-3.8 [facility] Comment on above: Performed By: #### C BC ####[facility] Elcnkwpflt[address] [place] [id number]. Shahbaz Rogel Lymphocytes/100 WBC (Bld) 10.7 % Critically low 20.5-60.0 [facility] Comment on above: Performed By: #### C BC ####[facility] Etdpyrpjtb[address] [place] [address]Dr. Shahbaz Rogel MANUAL DIFF REQ NO Normal [facility] Comment on above: Performed By: #### C BC ####[facility] Mumqxngibl43[address] [place] [id number]. Shahbaz Rogel MCH (RBC) [Entitic mass] 27.7 pg Normal 26.7-34.0 [facility] Comment on above: Performed By: #### C BC ####[facility] Nzhotkkefq18[address] [place] [id number]. Shahbaz Rogel MCHC (RBC) [Mass/Vol] 31.7 g/dL Normal 29.9-35.2 [facility] Comment on above: Performed By: #### C BC ####[facility] Euukukkdyc10[address] [place] [id number]. Shahbaz Rogel MCV (RBC) [Entitic vol] 87.4 fL Normal 81.0-99.0 [facility] Comment on above: Performed By: #### C BC ####[facility] Lrtatetugn58[address] [place] [id number]. Shahbaz Rogel MONO # 0.1 103/ul Critically low 0.3-0.8 [facility] Comment on above: Performed By: #### C BC ####[facility] Hexrydlsfw0282 [place] [id number]. Shahbaz Rogel Monocytes/100 WBC (Bld) 2.5 % Normal 1.7-12.0 [facility] Comment on above: Performed By: #### C BC ####[facility] Ttfjpoybno55[address] [place] [id number]. Shahbaz Rogel NEUT # 4.8 103/ul Normal 1.4-6.5 [facility] Comment on above: Performed By: #### C BC ####[facility] Fzvlvsfnnb5998 [place] [address]Dr. Shahbaz Rogel Neutrophils/100 WBC (Bld) 86.1 % Critically high 43.0-75.0 [facility] Comment on above: Performed By: #### C BC ####[facility] Ugdjztwcre89[address] [place] [address]Dr. Shahbaz Rogel Platelet mean volume (Bld) [Entitic vol] 10.0 fL Normal 9.5-13.5 [facility] Comment on above: Performed By: #### C BC ####[facility] Stzxgyjjiu80[address] [place] [address]Dr. Shahbaz Rogel PLT 193 103/ul Normal 150-450 [facility] Comment on above: Performed By: #### C BC ####[facility] Dhqxtpuwci5086 [place] [id number]. Shahbaz Rogel RBC 4.19 106/ul Critically low 4.20-5.40 [facility] Comment on above: Performed By: #### C BC ####[facility] Qssdncoebt[address] [place], [place] [address]Dr. Shahbaz Rogel WBC 5.6 103/ul Normal 4.0-11.0 [facility] Comment on above: Performed By: #### C BC ####[facility] Nvhyqbhdus[address] [place], [place] [address]Dr. Shahbaz Rogel PROF CHEM 8 (BAS METB)on Anion gap [Moles/Vol] 12.7 mmol/L Normal [facility] Comment on above: Performed By: #### B MP ####[facility] Ludjdmtgso[address] [place] [address]Dr. Shahbaz Rogel Calcium [Mass/Vol] 8.8 mg/dL Normal 8.5-10.1 [facility] Comment on above: Performed By: #### B MP ####[facility] Dmwxvgvtku6668 [place] [address]Dr. Shahbaz Rogel Chloride [Moles/Vol] 107 mmol/L Normal 98-107 [facility] Comment on above: Performed By: #### B MP ####[facility] Fmqjxtlnsb7[address] [place], [place] [address]Dr. Shahbaz Rogel CO2 [Moles/Vol] 26.9 mmol/L Normal 21.0-32.0 [facility] Comment on above: Performed By: #### B MP ####[facility] Ayanqyayqv18[address] [place], [place] [address]Dr. Shahbaz Rogel Creatinine [Mass/Vol] 0.81 mg/dL Normal 0.55-1.02 [facility] Comment on above: Performed By: #### B MP ####[facility] Jjqmebgkwt05[address] [place], [place] [address]Dr. Shahbaz Rogel EGFR-AF [place] >60 Normal >=60 [facility] Comment on above: Performed By: #### B MP ####[facility] Hecweqfxkj364[address] [place], [place] [address]Dr. Shahbaz Rogel EGFR-NON AF [place] >60 Normal >=60 [facility] Comment on above: Performed By: #### B MP ####[facility] Iifwimfbya[address] [place], [place] [address]Dr. Shahbaz Rogel Glucose [Mass/Vol] 144 mg/dL Critically high 74-106 [facility] Comment on above: Performed By: #### B MP ####[facility] Fejfnrckax746[address] [place], [place] [address]Dr. Shahbaz Rogel Potassium [Moles/Vol] 3.6 mmol/L Normal 3.5-5.1 [facility] Comment on above: Performed By: #### B MP ####[facility] Kojrlahmky90[address] [place] [address]Dr. Shahbaz Rogel Sodium [Moles/Vol] 143 mmol/L Normal 136-145 [facility] Comment on above: Performed By: #### B MP ####[facility] Qtkqfsbkiv3756 [place] [address]Dr. Shahbaz Rogel Urea nitrogen [Mass/Vol] 20.0 mg/dL Critically high 7.0-18.0 [facility] Comment on above: Performed By: #### B MP ####[facility] Dramfovhfr[address] [place], [place] [address]Dr. Shahbaz Juan F Urea nitrogen/Creatinine [Mass ratio] 24.7 mg/mg Normal [facility] Comment on above: Performed By: #### B MP ####[facility] Hpwrvereie[address] [place], [place] [address]Dr. Shahbaz Juan F CBC W MANUAL DIFFon 01-05-20 23 ATYPICAL LYMPH # Normal [facility] Comment on above: Performed By: #### C BCMAN ####[facility] Bufogghgnt[address] [place], [place] [address]Dr. Shahbaz Juan F ATYPICAL LYMPH % Normal [facility] Comment on above: Performed By: #### C BCMAN ####[facility] Rzpikkdzjx[address] [place], [place] [address]Dr. Shahbaz Juan F BAND # 0.0 103/ul Normal 0.0-0.3 [facility] Comment on above: Performed By: #### C BCMAN ####[facility] Ujoktosmil[address] [place], [place] [address]Dr. Shahbaz Rogel BAND % 0 % Normal 0-5 [facility] Comment on above: Performed By: #### C BCMAN ####[facility] Sprkerfskh[address] [place], [place] [address]Dr. Shahbaz Rogel BASOM # 0.00 103/ul Normal 0.00-0.10 [facility] Comment on above: Performed By: #### C BCMAN ####[facility] Jjonkebyhi[address] [place], [place] [address]Dr. Shahbaz Rogel BASOM % 0.0 % Critically low 0.2-2.0 [facility] Comment on above: Performed By: #### C CAIN ####[facility] Qdgodbnhwz033[address] [place] [address]Dr. Shahbaz Rogel BLAST # Normal [facility] Comment on above: Performed By: #### C CAIN ####[facility] Bqhlgusjpx3710 [place] [id number]. Shahbaz Rogel BLAST % Normal [facility] Comment on above: Performed By: #### C CAIN ####[facility] Guqymupogl053[address] [place], [place] [address]Dr. Shahbaz Rogel CORRECTED WBC Normal 4.0-11.0 [facility] Comment on above: Performed By: #### C CAIN ####[facility] Aonsjwcycc999[address] [place], [place] [address]Dr. Shahbaz Rogel EOS # 0.00 103/ul Normal 0.00-0.70 [facility] Comment on above: Performed By: #### C CAIN ####[facility] Mdkfjmrqzx229[address] [place], [place] [address]Dr. Shahbaz Rogel EOS% 0.0 % Critically low 0.9-7.0 [facility] Comment on above: Performed By: #### C CAIN ####[facility] Bhullajmsu7[address] [place], [place] [address]Dr. Shahbaz Rogel HCT 36.5 % Normal 36.0-48.0 [facility] Comment on above: Performed By: #### C CAIN ####[facility] Veuuhtaddj[address] [place], [place] [address]Dr. Shahbaz Rogel HGB 11.8 g/dl Critically low 12.0-16.0 [facility] Comment on above: Performed By: #### C CAIN ####[facility] Erqjlzmlgn957[address] [place], [place] [address]Dr. Shahbaz Rogel LYMPHM # 0.42 103/ul Critically low 1.20-3.80 [facility] Comment on above: Performed By: #### C CAIN ####[facility] Mxhdrtkyzi78[address] [place], [place] [address]Dr. Shahbaz Rogel LYMPHM% 12.0 % Critically low 20.5-60.0 [facility] Comment on above: Performed By: #### C CAIN ####[facility] Qtijqxfmco7808 [place] [id number]. Shahbaz Rogel MCH 28.0 pg Normal 26.7-34.0 [facility] Comment on above: Performed By: #### C CAIN ####[facility] Pcofibslew2281 [place] [id number]. Shahbaz Rogel MCHC 32.3 g/dl Normal 29.9-35.2 [facility] Comment on above: Performed By: #### C CAIN ####[facility] Oeosxexllq8713 [place] [id number]. Shahbaz Rogel MCV 86.7 fL Normal 81.0-99.0 [facility] Comment on above: Performed By: #### C CAIN ####[facility] Unpictvqgm2895 [place] [id number]. Shahbaz Rogel METAMYELOCYTE # Normal [facility] Comment on above: Performed By: #### C CAIN ####[facility] Qlquvtnycn6158 [place] [id number]. Shahbaz Rogel METAMYELOCYTE % Normal [facility] Comment on above: Performed By: #### C CAIN ####[facility] Jujkysesuz9535 [place] [id number]. Shahbaz Rogel MONOM# 0.07 103/ul Critically low 0.30-0.80 [facility] Comment on above: Performed By: #### C CAIN ####[facility] Oasnktwkzn2562 [place] [id number]. Shahbaz Rogel MONOM% 2.0 % Normal 1.7-12.0 [facility] Comment on above: Performed By: #### C CAIN ####[facility] Qzbtzwpxri2288 [place] [id number]. Shahbaz Rogel MPV 9.9 fL Normal 9.5-13.5 [facility] Comment on above: Performed By: #### C CAIN ####[facility] Llhhssimdr3539 [place], [place] [address]Kg. Shahbaz Rogel MYELOCYTE # Normal [facility] Comment on above: Performed By: #### C CAIN ####[facility] Ootoaplfmg5013 [place] [id number]. Shahbaz Rogel MYELOCYTE % Normal [facility] Comment on above: Performed By: #### C CAIN ####[facility] Emvolnoacq9233 [place] [id number]. Shahbaz Rogel NRBC Normal [facility] Comment on above: Performed By: #### C CAIN ####[facility] Mqipsldzop5025 [place] [phone]. Shahbaz Rogel PLT 178 103/ul Normal 150-450 [facility] Comment on above: Performed By: #### C CAIN ####[facility] Ygditchrur4156 [place] [phone]. Shahbaz Rogel RBC 4.21 106/ul Normal 4.20-5.40 [facility] Comment on above: Performed By: #### C CAIN ####[facility] Ykcizfqndg0738 [place] [id number]. Shahbaz Rogel RDW 13.2 % Normal 11.0-15.0 [facility] Comment on above: Performed By: #### C CAIN ####[facility] Hvoqcoyyfh2780 [place] [phone]. Shahbaz Rogel SEG # 3.01 103/ul Normal 1.40-6.50 [facility] Comment on above: Performed By: #### C CAIN ####[facility] Libxkgyiys0600 [place] [phone]. Shahbaz Rogel SEG % 86.0 % Critically high 43.0-75.0 [facility] Comment on above: Performed By: #### C CAIN ####[facility] Xxohnqlxbf6642 [place] [phone]. Shahbaz Rogel WBC 3.5 103/ul Critically low 4.0-11.0 [facility] Comment on above: Performed By: #### C BCMAN ####[facility] Ebasaqupdr[address] [place] [address]Dr. Shahbaz Rogel PROF CHEM 8 (BAS METB)on Anion gap [Moles/Vol] 10.5 mmol/L Normal [facility] Comment on above: Performed By: #### B MP ####[facility] Jaxbokvvyv9788 [place] [address]Dr. Shahbaz Rogel Calcium [Mass/Vol] 8.7 mg/dL Normal 8.5-10.1 [facility] Comment on above: Performed By: #### B MP ####[facility] Mjfvjgevfi4102 [place] [address]Dr. Shahbaz Rogel Chloride [Moles/Vol] 108 mmol/L Critically high 98-107 [facility] Comment on above: Performed By: #### B MP ####[facility] Psaqthfxpd[address] [place], [place] [address]Dr. Shahbaz Rogel CO2 [Moles/Vol] 25.2 mmol/L Normal 21.0-32.0 [facility] Comment on above: Performed By: #### B MP ####[facility] Iaoppgnzek37[address] [place], [place] [address]Dr. Shahbaz Rogel Creatinine [Mass/Vol] 0.77 mg/dL Normal 0.55-1.02 [facility] Comment on above: Performed By: #### B MP ####[facility] Bgbdmonlyu7356[address] [place], [place] [address]Dr. Shahbaz Rogel EGFR-AF [place] >60 Normal >=60 [facility] Comment on above: Performed By: #### B MP ####[facility] Tjrpsewwgf0862 [place] [address]Dr. Shahbaz Rogel EGFR-NON AF [place] >60 Normal >=60 [facility] Comment on above: Performed By: #### B MP ####[facility] Igzduxcdkr2070 [place] [address]Dr. Shahbaz Rogel Glucose [Mass/Vol] 169 mg/dL Critically high 74-106 [facility] Comment on above: Performed By: #### B MP ####[facility] Krxqemrmrc6056 [place] [address]Dr. Shahbaz Rogel Potassium [Moles/Vol] 3.7 mmol/L Normal 3.5-5.1 [facility] Comment on above: Performed By: #### B MP ####[facility] Atzccynjcb3126 [place] [address]Dr. Shahbaz Rogel Sodium [Moles/Vol] 140 mmol/L Normal 136-145 [facility] Comment on above: Performed By: #### B MP ####[facility] Mgeavukpnw9660[address] [place], [place] [address]Dr. Shahbaz Rogel Urea nitrogen [Mass/Vol] 14.0 mg/dL Normal 7.0-18.0 [facility] Comment on above: Performed By: #### B MP ####[facility] Hzshzyqseu3633[address] [place], [place] [address]Dr. Shahbaz Rogel Urea nitrogen/Creatinine [Mass ratio] 18.2 mg/mg Normal [facility] Comment on above: Performed By: #### B MP ####[facility] Esoneebhxa9480[address] [place], [place] [address]Dr. Shahbaz Rogel RESPIRATORY PANEL PLUSon Adenovirus Not detected Normal NOT DETECTED [facility] Comment on above: Performed By: #### R SPLUS ####[facility] Veplmjuusa5[address] [place], [place] [address]Dr. Shahbaz Rogel B. Parapertusis Not detected Normal NOT DETECTED [facility] Comment on above: Performed By: #### R SPLUS ####[facility] Oxfxabpnlp7925[address] [place], [place] [address]Dr. Shahbaz Rogel B. Pertussis Not detected Normal NOT DETECTED [facility] Comment on above: Performed By: #### R SPLUS ####[facility] Xflzfevhqm029[address] [place], [place] [address]Dr. Shahbaz Rogel Chlamydia Pneumoniae Not detected Normal NOT DETECTED [facility] Comment on above: Performed By: #### R SPLUS ####[facility] Ypfdmdwfgj3350[address] [place], [place] [address]Dr. Shahbaz Rogel Coronavirus 229E Not detected Normal NOT DETECTED [facility] Comment on above: Performed By: #### R SPLUS ####[facility] Gscsbfpcit9364 [place] [address]Dr. Shahbaz [facility] Coronavirus HKU1 Not detected Normal NOT DETECTED [facility] Comment on above: Performed By: #### R SPLUS ####[facility] Mnfrhgyemt9471 [place] [address]Dr. Shahbaz Rogel Coronavirus NL63 Not detected Normal NOT DETECTED [facility] Comment on above: Performed By: #### R SPLUS ####[facility] Vbyxdbekui6459[address] [place], [place] [address]Dr. Shahbaz [facility] Coronavirus OC43 Not detected Normal NOT DETECTED [facility] Comment on above: Performed By: #### R SPLUS ####[facility] Gihnamwozq7789[address] [place], [place] [address]Dr. Shahbaz Rogel Influenza A H1 Not detected Normal NOT DETECTED [facility] Comment on above: Performed By: #### R SPLUS ####[facility] Dmklmexqgk5186[address] [place], [place] [address]Dr. Shhabaz Rogel Influenza A H1 2009 Not detected Normal NOT DETECTED [facility] Comment on above: Performed By: #### R SPLUS ####[facility] Usluviqjen4987[address] [place], [place] [address]Dr. Shahbaz Rogel Influenza A H3 Not detected Normal NOT DETECTED [facility] Comment on above: Performed By: #### R SPLUS ####[facility] Zqmxymkxir202[address] [place], [place] [address]Dr. Shahbaz Rogel Influenza B Not detected Normal NOT DETECTED [facility] Comment on above: Performed By: #### R SPLUS ####[facility] Mrrzmmbpgq8105[address] [place], [place] [address]Dr. Lilalan Rogel Metapneumovirus Detected Abnormal NOT DETECTED [facility] Comment on above: Performed By: #### R SPLUS ####[facility] Wwnsxahlwa5949[address] [place], [place] [address]Dr. Shahbaz Rogel Mycoplas. Pneumoniae Not detected Normal NOT DETECTED [facility] Comment on above: Performed By: #### R SPLUS ####[facility] Qmxmavzpvq1855[address] [place], [place] [address]Dr. Shahbaz Rogel Parainfluenza 1 Not detected Normal NOT DETECTED [facility] Comment on above: Performed By: #### R SPLUS ####[facility] Ofqkxkjrok0725[address] [place], [place] [address]Dr. Shahbaz Rogel Parainfluenza 2 Not detected Normal NOT DETECTED [facility] Comment on above: Performed By: #### R SPLUS ####[facility] Jxfcvymrtq4537[address] [place], [place] [address]Dr. Shahbaz Rogel Parainfluenza 3 Not detected Normal NOT DETECTED [facility] Comment on above: Performed By: #### R SPLUS ####[facility] Zpyjxsgtju4525[address] [place], [place] [address]Dr. Shahbaz Rogel Parainfluenza 4 Not detected Normal NOT DETECTED [facility] Comment on above: Performed By: #### R SPLUS ####[facility] Gavjgohnhp[address] [place], [place] [address]Dr. Shahbaz Rogel Rhino/Enterovirus Not detected Normal NOT DETECTED [facility] Comment on above: Performed By: #### R SPLUS ####[facility] Kgxvzowktn7340[address] [place], [place] [address]Dr. Shahbaz Rogel RP2 Header 1 RESPIRATORY PANEL: VIRUSES Normal [facility] Comment on above: Performed By: #### R SPLUS ####[facility] Btgyaedvwg44[address] [place], [place] [address]Dr. Shahbaz Rogel RP2 Header 2 RESPIRATORY PANEL: BACTERIA Normal [facility] Comment on above: Performed By: #### R SPLUS ####[facility] Rblnmvlxhe653[address] [place], [place] [address]Dr. Shahbaz Rogel RSV Not detected Normal NOT DETECTED [facility] Comment on above: Performed By: #### R SPLUS ####[facility] Nqznkluaef4859[address] [place], [place] [address]Dr. Shahbaz Rogel SARS-CoV-2 (COVID-19) RNA PAVAN+probe Ql (Unsp spec) Not detected Normal NOT DETECTED [facility] Comment on above: Performed By: #### R SPLUS ####[facility] Grnlktzkea5473 [place] [address]Dr. Shahbaz Rogel CARDIAC ROSALINA 3-6on 3 CK [Catalytic activity/Vol] 148 U/L Normal 26-192 [facility] Comment on above: Performed By: #### C MREP ####[facility] Yeiogqrojb7467 [place] [address]Dr. Shahbaz Rogel CK.MB [Mass/Vol] 0.84 ng/mL Normal <=3.60 [facility] Comment on above: Performed By: #### C MREP ####[facility] Gzjysbmrij55[address] [place], [place] [address]Dr. Shahbaz Rogel HSTROP 6.4 pg/mL Normal 4.0-51.3 [facility] Comment on above: Result Comment: CUT- OFF POINTS HAVE BEEN ESTABLISHED BASED ON THE FOURTH UNIVERSAL DEFINITIONS OF MYOCARDIALINFARCTION. THE UPPER REFERENCE LIMIT (URL) OF TROPONIN, DEFINED THE 99TH PERCENTILE OFcTnI DISTRIBUTION IN A REFERENCE POPULATION, HAS BEEN CONFIRMED THE DECISION THRESHOLDFOR NV DIAGNOSIS. Performed By: #### C MREP ####[facility] Jrknpdzxgx60[address] [place], [place] [address]Dr. Shahbaz Rogel CBC W MANUAL DIFFon 01-04-20 23 ATYPICAL LYMPH # Normal [facility] Comment on above: Performed By: #### C BCMAN ####[facility] Lwceaappbq1171 [place] [address]Dr. Shahbaz Juan F ATYPICAL LYMPH % Normal [facility] Comment on above: Performed By: #### C BCMAN ####[facility] Wohttfkhax8657 [place] [address]Dr. Shahbaz Rogel BAND # 0.0 103/ul Normal 0.0-0.3 [facility] Comment on above: Performed By: #### C BCMAN ####[facility] Qxdqptgftw1533 [place] [address]Dr. Shahbaz Rogel BAND % 0 % Normal 0-5 [facility] Comment on above: Performed By: #### C BCMAN ####[facility] Ciaffjysqa4324 [place] [id number]. Shahbaz Rogel BASOM # 0.00 103/ul Normal 0.00-0.10 [facility] Comment on above: Performed By: #### C CAIN ####[facility] Zncuugbkeg0695 [place] [address]Dr. Shahbaz Rogel BASOM % 0.0 % Critically low 0.2-2.0 [facility] Comment on above: Performed By: #### C CAIN ####[facility] Dibzsleclx2098 [place] [address]Dr. Shahbaz Rogel BLAST # Normal [facility] Comment on above: Performed By: #### C CAIN ####[facility] Bavyhveeeo9[address] [place], [place] [address]Dr. Shahbaz Rogel BLAST % Normal [facility] Comment on above: Performed By: #### C CAIN ####[facility] Qxkpouszom6739[address] [place], [place] [address]Dr. Shahbaz Rogel CORRECTED WBC Normal 4.0-11.0 [facility] Comment on above: Performed By: #### C CAIN ####[facility] Nrxpmdwpuy664[address] [place], [place] [address]Dr. Shahbaz Rogel EOS # 0.02 103/ul Normal 0.00-0.70 [facility] Comment on above: Performed By: #### C CAIN ####[facility] Jijuikglgq6408[address] [place], [place] [address]Dr. Shahbaz Rogel EOS% 1.0 % Normal 0.9-7.0 [facility] Comment on above: Performed By: #### C CAIN ####[facility] Cvldnaddbb6776[address] [place], [place] [address]Dr. Shahbaz Rogel HCT 37.5 % Normal 36.0-48.0 [facility] Comment on above: Performed By: #### C CAIN ####[facility] Tvvhjaygyi9235[address] [place], [place] [address]Dr. Shahbaz Rogel HGB 12.0 g/dl Normal 12.0-16.0 [facility] Comment on above: Performed By: #### C CAIN ####[facility] Clsmsgixnm7699 [place] [id number]. Shahbaz Rogel LYMPHM # 0.21 103/ul Critically low 1.20-3.80 [facility] Comment on above: Performed By: #### C CAIN ####[facility] Fqivgddtcd7376 [place] [id number]. Shahbaz Rogel LYMPHM% 13.0 % Critically low 20.5-60.0 [facility] Comment on above: Performed By: #### C CAIN ####[facility] Pxkivfnmxd6919 [place] [id number]. Shahbaz Rogel MCH 27.8 pg Normal 26.7-34.0 [facility] Comment on above: Performed By: #### C CAIN ####[facility] Deufuzqiro1973 [place] [address]Dr. Shahbaz Rogel MCHC 32.0 g/dl Normal 29.9-35.2 [facility] Comment on above: Performed By: #### C CAIN ####[facility] Ovozyqwcgf2595 [place] [id number]. Shahbaz Rogel MCV 86.8 fL Normal 81.0-99.0 [facility] Comment on above: Performed By: #### C CAIN ####[facility] Rgroplprjz8837 [place] [id number]. Shahbaz Rogel METAMYELOCYTE # Normal [facility] Comment on above: Performed By: #### C CAIN ####[facility] Nfxpzyoipa4525 [place] [phone]. Shahbaz Rogel METAMYELOCYTE % Normal [facility] Comment on above: Performed By: #### C CAIN ####[facility] Lepafcfbeb9020[address] [place], [place] [address]Dr. Shahbaz Rogel MONOM# 0.02 103/ul Critically low 0.30-0.80 [facility] Comment on above: Performed By: #### C CAIN ####[facility] Vavkyfyyvs2699 [place] [id number]. Shahbaz Rogel MONOM% 1.0 % Critically low 1.7-12.0 [facility] Comment on above: Performed By: #### C CAIN ####[facility] Odhrsnmlyg1756 [place] [address]Dr. Shahbaz Rogel MPV 9.5 fL Normal 9.5-13.5 [facility] Comment on above: Performed By: #### C CAIN ####[facility] Ibgzrrforo3523 [place] [phone]. Shahbaz Rogel MYELOCYTE # Normal [facility] Comment on above: Performed By: #### C CAIN ####[facility] Lusgyjkntb3102 [place] [phone]. Shahbaz Rogel MYELOCYTE % Normal [facility] Comment on above: Performed By: #### C CAIN ####[facility] Bpzdrzkwql8914 [place] [address]Dr. Shahbaz Rogel NRBC Normal [facility] Comment on above: Performed By: #### C CAIN ####[facility] Wshliipfeo7[address] [place], [place] [address]Dr. Shahbaz Rogel PLT 173 103/ul Normal 150-450 [facility] Comment on above: Performed By: #### C CAIN ####[facility] Gxnryqppsa[address] [place], [place] [address]Dr. Shahbaz Rogel RBC 4.32 106/ul Normal 4.20-5.40 [facility] Comment on above: Performed By: #### C CAIN ####[facility] Marwanexec1367 [place] [phone]. Shahbaz Rogel RDW 13.1 % Normal 11.0-15.0 [facility] Comment on above: Performed By: #### C CAIN ####[facility] Xhclvbrgqq[address] [place], [place] [id number]. Shahbaz Rogel SEG # 1.36 103/ul Critically low 1.40-6.50 [facility] Comment on above: Performed By: #### C CAIN ####[facility] Yjpsiosugp518[address] [place], [place] [address]Dr. Shahbaz Rogel SEG % 85.0 % Critically high 43.0-75.0 [facility] Comment on above: Performed By: #### C CAIN ####[facility] Zoyquiwqhi1975[address] [place], [place] [address]Dr. Shahbaz Rogel WBC 1.6 103/ul Critically low 4.0-11.0 [facility] Comment on above: Performed By: #### C CAIN ####[facility] Qxggokkkfc173[address] [place], [place] [address]Dr. Sahhbaz Rogel CT CHEST WO CONon 01-03-2023 CT CHEST WO CON Normal [facility] ER URINE PROFILEon 3 Bilirubin Ql (U) Negative Normal NEGATIVE [facility] Comment on above: Performed By: #### E RUR ####[facility] Ftkgnryifw0744[address] [place], [place] [address]Dr. Shahbaz Rogel Clarity (U) CLEAR Normal CLEAR [facility] Comment on above: Performed By: #### E RUR ####[facility] Wljhkidprd35[address] [place], [place] [address]Dr. Shahbaz Rogel Color (U) LT. YELLOW Normal YELLOW [facility] Comment on above: Performed By: #### E RUR ####[facility] Fwmbspfnky[address] [place], [place] [address]Dr. Shahbaz Rogel ERUAHD A micrscopic examina tion will be performed if indicated. Normal [facility] Comment on above: Performed By: #### E RUR ####[facility] Vfbxwhldeb7379[address] [place], [place] [address]Dr. Shahbaz Rogel Glucose Ql (U) Negative Normal NEGATIVE [facility] Comment on above: Performed By: #### E RUR ####[facility] Twdiqpfpbf1505[address] [place], [place] [address]Dr. Shahbaz Rogel Hemoglobin Ql (U) Negative Normal NEGATIVE [facility] Comment on above: Performed By: #### E RUR ####[facility] Vtkmolfywm8985[address] [place], [place] [address]Dr. Shahbaz Rogel Ketones Ql (U) Negative Normal NEGATIVE [facility] Comment on above: Performed By: #### E RUR ####[facility] Kdahzbzvgg8685 [place] [address]Dr. Lilajarrod Juan F LEUKOCYTES Negative Normal NEGATIVE [facility] Comment on above: Performed By: #### E RUR ####[facility] Jlviknvttj5926[address] [place], [place] [address]Dr. Lilajarrod Rogel Nitrite Ql (U) Negative Normal NEGATIVE [facility] Comment on above: Performed By: #### E RUR ####[facility] Rvroaazqad[address] [place], [place] [address]Dr. Shahbaz Rogel pH (U) 6.0 [pH] Normal 5-9 [facility] Comment on above: Performed By: #### E RUR ####[facility] Bspnlscbbm9734[address] [place], [place] [address]Dr. Shahbaz Rogel SPEC GRAVITY <=1.005 Abnormal 1.005-<=1. 025 [facility] Comment on above: Performed By: #### E RUR ####[facility] Hyyrxirffm2544[address] [place], [place] [address]Dr. Shahbaz Rogel UA PROTEIN Negative Normal NEGATIVE/ TRACE [facility] Comment on above: Performed By: #### E RUR ####[facility] Kidwqhczmd0255[address] [place], [place] [address]Dr. Shahbaz Rogel UR MICRO IND NOT INDICATED Normal [facility] Comment on above: Performed By: #### E RUR ####[facility] Zgkyimmbpu622[address] [place], [place] [address]Dr. Shahbaz Rogel Urobilinogen Qn (U) 0.2 {Melida'U}/dL Normal 0.2 - 1. 0 [facility] Comment on above: Performed By: #### E RUR ####[facility] Xqynpkibyn7359[address] [place], [place] [address]Dr. Shahbaz Rogel LACTATE/LACTIC ACIDon 2022 Lactate [Moles/Vol] 1.5 mmol/L Normal 0.4-2.0 [facility] Comment on above: Performed By: #### L ACT ####[facility] Sjrpwjvejq[address] [place], [place] [address]Dr. Shahbaz Rogel PROF CHEM 8 (BAS METB)on Anion gap [Moles/Vol] 11.6 mmol/L Normal [facility] Comment on above: Performed By: #### B MP ####[facility] Vscutgtmgu2506 [place] [address]Dr. Shahbaz Rogel Calcium [Mass/Vol] 8.1 mg/dL Critically low 8.5-10.1 [facility] [place] [facility] Comment on above: Performed By: #### B MP ####[facility] Mysqmdakoh7998 [place] [address]Dr. Shahbaz Rogel Chloride [Moles/Vol] 109 mmol/L Critically high 98-107 [facility] Comment on above: Performed By: #### B MP ####[facility] Ygcnhcsrwm[address] [place], [place] [address]Dr. Shahbaz Rogel CO2 [Moles/Vol] 25.2 mmol/L Normal 21.0-32.0 [facility] Comment on above: Performed By: #### B MP ####[facility] Vtvjflbfbk7460[address] [place], [place] [address]Dr. Shahbaz Rogel Creatinine [Mass/Vol] 0.89 mg/dL Normal 0.55-1.02 [facility] Comment on above: Performed By: #### B MP ####[facility] Ldldnqeoyz2386[address] [place], [place] [address]Dr. Shahbaz Rogel EGFR-AF [place] >60 Normal >=60 [facility] Comment on above: Performed By: #### B MP ####[facility] Dxjhayyzds3889 [place] [address]Dr. Shahbaz Rogel EGFR-NON AF [place] >60 Normal >=60 [facility] Comment on above: Performed By: #### B MP ####[facility] Juxcrwuymo4107[address] [place], [place] [address]Dr. Shahbaz Rogel Glucose [Mass/Vol] 167 mg/dL Critically high 74-106 [facility] Comment on above: Performed By: #### B MP ####[facility] Vnwqmzfwra9060[address] [place], [place] [address]Dr. Shahbaz Rogel Potassium [Moles/Vol] 3.8 mmol/L Normal 3.5-5.1 [facility] Comment on above: Performed By: #### B MP ####[facility] Ivbfgpuhhv4258 [place] [address]Dr. Shahbaz Rogel Sodium [Moles/Vol] 142 mmol/L Normal 136-145 [facility] Comment on above: Performed By: #### B MP ####[facility] Nuabbpszuy07[address] [place], [place] [address]Dr. Shahbaz Rogel Urea nitrogen [Mass/Vol] 9.0 mg/dL Normal 7.0-18.0 [facility] Comment on above: Performed By: #### B MP ####[facility] Txuyzodhqu8[address] [place], [place] [address]Dr. Shahbaz Rogel Urea nitrogen/Creatinine [Mass ratio] 10.1 mg/mg Normal [facility] Comment on above: Performed By: #### B MP ####[facility] [address] [place], [place] [address]Dr. Shahbaz Rogel CARDIAC ROSALINA ADMITon 023 CK [Catalytic activity/Vol] 173 U/L Normal 26-192 [facility] Comment on above: Performed By: #### C EZEKIEL, BMP ####[facility] Soicmgfxmn[address] [place], [place] [address]Dr. Shahbaz Rogel CK.MB [Mass/Vol] 0.55 ng/mL Normal <=3.60 [facility] Comment on above: Performed By: #### C EZEKIEL, BMP ####[facility] Kkxppftpcx[address] [place], [place] [address]Dr. Shahbaz Rogel HSTROP 5.9 pg/mL Normal 4.0-51.3 [facility] Comment on above: Result Comment: CUT- OFF POINTS HAVE BEEN ESTABLISHED BASED ON THE FOURTH UNIVERSAL DEFINITIONS OF MYOCARDIALINFARCTION. THE UPPER REFERENCE LIMIT (URL) OF TROPONIN, DEFINED THE 99TH PERCENTILE OFcTnI DISTRIBUTION IN A REFERENCE POPULATION, HAS BEEN CONFIRMED THE DECISION THRESHOLDFOR NV DIAGNOSIS. Performed By: #### C EZEKIEL, BMP ####[facility] [address]zx[address]epo[address] [place] [address]Dr. Shahbaz Rogel LEN 76 ng/mL Normal 9-82 [facility] Comment on above: Performed By: #### C EZEKIEL, BMP ####[facility] Fvfmygsgug[address] [place], [place] [address]Dr. Shahbaz Juan F CBC W MANUAL DIFFon 01-03-20 23 ATYPICAL LYMPH # Normal [facility] Comment on above: Performed By: #### C BCMAN ####[facility] Pkvegfuhiu[address] [place], [place] [address]Dr. Shahbaz Rogel ATYPICAL LYMPH % Normal [facility] Comment on above: Performed By: #### C CHANELMAN ####[facility] Vevxmefkjv[address] [place], [place] [address]Dr. Shahbaz Juan F BAND # Normal 0.0-0.3 [facility] Comment on above: Performed By: #### C CAIN ####[facility] Ozbahcgdif[address] [place], [place] [address]Dr. Shahbaz Rogel BAND % Normal 0-5 [facility] Comment on above: Performed By: #### C CAIN ####[facility] Zozfwgewda[address] [place], [place] [address]Dr. Shahbaz Juan F BASOM # 0.00 103/ul Normal 0.00-0.10 [facility] Comment on above: Performed By: #### C CAIN ####[facility] Wfmkmhgrno[address] [place], [place] [address]Dr. Shahbaz Rogel BASOM % 0.0 % Critically low 0.2-2.0 [facility] Comment on above: Performed By: #### C CAIN ####[facility] Cpucvcrhau[address] [place], [place] [address]Dr. Lilajarrod Rogel BLAST # Normal [facility] Comment on above: Performed By: #### C CHANELMAN ####[facility] Ceajmrlmye[address] [place], [place] [address]Dr. Lilajarrod Rogel BLAST % Normal [facility] Comment on above: Performed By: #### C CAIN ####[facility] Gpufryhxob[address] [place], [place] [address]Dr. Shahbaz Rogel CORRECTED WBC Normal 4.0-11.0 [facility] Comment on above: Performed By: #### C CAIN ####[facility] [address]cpf[address] [place] [address]Dr. Shahbaz Rogel EOS # 0.03 103/ul Normal 0.00-0.70 [facility] Comment on above: Performed By: #### C CAIN ####[facility] Jusuifxevv[address] [place] [address]Dr. Shahbaz Rogel EOS% 1.0 % Normal 0.9-7.0 [facility] Comment on above: Performed By: #### C CAIN ####[facility] Cdlsozgibo[address] [place] [address]Dr. Shahbaz Rogel HCT 42.8 % Normal 36.0-48.0 [facility] Comment on above: Performed By: #### C CAIN ####[facility] Ikfyqhnfku[address] [place], [place] [address]Dr. Shahbaz Rogel HGB 14.1 g/dl Normal 12.0-16.0 [facility] Comment on above: Performed By: #### C CAIN ####[facility] Rfqqvkbpqk[address] [place], [place] [address]Dr. Shahbaz Rogel LYMPHM # 0.64 103/ul Critically low 1.20-3.80 [facility] Comment on above: Performed By: #### C CAIN ####[facility] Wzorjndflc[address] [place], [place] [address]Dr. Shahbaz Rogel LYMPHM% 23.0 % Normal 20.5-60.0 [facility] Comment on above: Performed By: #### C CAIN ####[facility] Kdoihfqikx[address] [place], [place] [address]Dr. Shahbaz Rogel MCH 28.0 pg Normal 26.7-34.0 [facility] Comment on above: Performed By: #### C CAIN ####[facility] Scosarcsyi[address] [place], [place] [address]Dr. Shahbaz Rogel MCHC 32.9 g/dl Normal 29.9-35.2 [facility] Comment on above: Performed By: #### C CAIN ####[facility] [address]zde[address] [place] [id number]. Shahbaz Rogel MCV 84.9 fL Normal 81.0-99.0 [facility] Comment on above: Performed By: #### C CAIN ####[facility] Tuuz[address]uxn[address] [place] [id number]. Shahbaz Rogel METAMYELOCYTE # Normal [facility] Comment on above: Performed By: #### C CAIN ####[facility] Vzkgoxqabn8172 [place] [id number]. Shahbaz Rogel METAMYELOCYTE % Normal [facility] Comment on above: Performed By: #### C CAIN ####[facility] Ufppcspdby[address] [place], [place] [address]Dr. Shahbaz Rogel MONOM# 0.31 103/ul Normal 0.30-0.80 [facility] Comment on above: Performed By: #### C CAIN ####[facility] Npffbplugp[address] [place], [place] [address]Dr. Shahbaz Rogel MONOM% 11.0 % Normal 1.7-12.0 [facility] Comment on above: Performed By: #### Cheri BARLOW ####[facility] Cjedx[address] [place], [place] [address]Dr. Shahbaz Rogel MPV 9.5 fL Normal 9.5-13.5 [facility] Comment on above: Performed By: #### Cheri BARLOW ####[facility] [address] [place], [place] [id number]. Shahbaz Rogel MYELOCYTE # Normal [facility] Comment on above: Performed By: #### C CAIN ####[facility] V[address]odkgdlkk[address] [place] [id number]. Shahbaz Rogel MYELOCYTE % Normal [facility] Comment on above: Performed By: #### C CAIN ####[facility] Tw[address]blwphsy[address] [place] [address]Dr. Shahbaz Rogel NRBC Normal [facility] Comment on above: Performed By: #### Cheri BARLOW ####[facility] Vklzgzaeco1749 [place], [place] [address]Cc. Shahbaz Rogel PLT 197 103/ul Normal 150-450 [facility] Comment on above: Performed By: #### Cheri BARLOW ####[facility] Amsdkzqqso2553 [place], [place] [address]Tv. Shahbaz Rogel RBC 5.04 106/ul Normal 4.20-5.40 [facility] Comment on above: Performed By: #### Cheri BARLOW ####[facility] Cewqgxjhcr5245 [place], [place] [address]Xz. Shahbaz Rogel RDW 13.2 % Normal 11.0-15.0 [facility] Comment on above: Performed By: #### Cheri BARLOW ####[facility] Fcuqphseuk4157 [place], [place] [address]Bp. Shahbaz Rogel SEG # 1.82 103/ul Normal 1.40-6.50 [facility] Comment on above: Performed By: #### Cheri BARLOW ####[facility] Ohvbpvwnnf2397 [place], [place] [address]Wh. Shahbaz Rogel SEG % 65.0 % Normal 43.0-75.0 [facility] Comment on above: Performed By: #### Cheri BARLOW ####[facility] Rqbcoeejxi6408 [place], [place] [address]Ui. Shahbaz Rogel WBC 2.8 103/ul Critically low 4.0-11.0 [facility] Comment on above: Performed By: #### Cheri BARLOW ####[facility] Cfkyoxbboi64[address] [place] [phone]. Shahbaz Rogel [facility]-19 [facility]on SARS-CoV-2 (COVID-19) RNA PAVAN+probe Ql (Unsp spec) Not detected Normal NOT DETECTED [facility] Comment on above: Result Comment: When diagnostic [...] for this test is supported by the [employer] of Health and Human Service's declaration that [...] be used). Performed By: #### C VDTBH ####[facility] Sdigviiraw[address] [place], [place] [address]DrChen Rogel D-DIMERon 01-02-2023 D-DIMER 0.38 mg/L FEU Normal <=0.59 [facility] Comment on above: Performed By: #### D DIM ####[facility] Ftgikhvzbj[address] [place], [place] [address]DrChen Rogel D-DIMER COMMENTS SEE BELOW Normal [facility] Comment on above: Result Comment: Incr eases [...] generalized hospitalization. Performed By: #### D DIM ####[facility] Xmsdxztktd[address] [place] [address]Dr. Shahbaz Rogel LACTATE/LACTIC ACIDon 2022 Lactate [Moles/Vol] 2.1 mmol/L Critically high 0.4-2.0 [facility] Comment on above: Performed By: #### L ACT ####[facility] Euzmnvazed[address] [place], [place] [address]DrChen Rogel PROF CHEM 8 (BAS METB)on Anion gap [Moles/Vol] 14.3 mmol/L Normal [facility] Comment on above: Performed By: #### C EZEKIEL, BMP ####[facility] Khctrcsjbd16[address] [place] [address]Dr. Shahbaz Rogel Calcium [Mass/Vol] 9.0 mg/dL Normal 8.5-10.1 [facility] Comment on above: Performed By: #### C JOSSYM, BMP ####[facility] Vsoeofppbp7[address] [place] [address]Dr. Shahbaz Rogel Chloride [Moles/Vol] 102 mmol/L Normal 98-107 [facility] Comment on above: Performed By: #### C EZEKIEL, BMP ####[facility] Rdkphtbmxc4984 [place] [address]Dr. Shahbaz Rogel CO2 [Moles/Vol] 25.5 mmol/L Normal 21.0-32.0 [facility] Comment on above: Performed By: #### C EZEKIEL, BMP ####[facility] Xpolrybpit[address] [place], [place] [address]Dr. Shahbaz Rogel Creatinine [Mass/Vol] 1.01 mg/dL Normal 0.55-1.02 [facility] Comment on above: Performed By: #### C EZEKIEL, BMP ####[facility] Hcihfqguwm[address] [place], [place] [address]Dr. Shahbaz Rogel EGFR-AF [place] >60 Normal >=60 [facility] Comment on above: Performed By: #### C EZEKIEL, BMP ####[facility] Sileukvxsv[address] [place], [place] [address]Dr. Shahbaz Rogel EGFR-NON AF [place] 56 mL/min/1.73m2 Critically low >=60 [facility] Comment on above: Performed By: #### C EZEKIEL, BMP ####[facility] Ztdjyyiirr[address] [place], [place] [address]Dr. Shahbaz Rogel Glucose [Mass/Vol] 105 mg/dL Normal 74-106 [facility] Comment on above: Performed By: #### C MADM, BMP ####[facility] Njdwrwbulk[address] [place], [place] [address]Dr. Shahbaz Rogel Potassium [Moles/Vol] 3.8 mmol/L Normal 3.5-5.1 [facility] Comment on above: Performed By: #### C EZEKIEL, BMP ####[facility] Dqvmzalbzo0139[address] [place], [place] [address]Dr. Shahbaz Rogel Sodium [Moles/Vol] 138 mmol/L Normal 136-145 [facility] Comment on above: Performed By: #### C EZEKIEL, BMP ####[facility] Idedhxejqk7155[address] [place], [place] [address]Dr. Shahbaz Rogel Urea nitrogen [Mass/Vol] 9.0 mg/dL Normal 7.0-18.0 [facility] Comment on above: Performed By: #### C EZEKIEL, BMP ####[facility] Wntghfbbtq3916[address] [place], [place] [address]Dr. Shahbaz Rogel Urea nitrogen/Creatinine [Mass ratio] 8.9 mg/mg Normal [facility] Comment on above: Performed By: #### C EZEKIEL, BMP ####[facility] Sgbmawento[address] [place], [place] [address]Dr. Shahbaz Rogel XR CHEST 1 Von 01-02-2023 XR CHEST 1 V Normal [facility] INSULINon 11-02-2022 Insulin 6.0 uIU/mL Normal 2.6-24.9 [facility] Comment on above: Performed By: #### I NSULIN ####[facility] Jmfcqcmmgi[address] [place], [place] [address]Dr. Shahbaz Rogel CBC AUTO DIFFon 11-01-2022 BASO # 0.0 103/ul Normal 0.0-0.1 [facility] Comment on above: Performed By: #### C BC ####[facility] Yvulgxzzvl64[address] [place], [place] [address]Dr. Shahbaz Rogel Basophils/100 WBC (Bld) 0.5 % Normal 0.2-2.0 [facility] Comment on above: Performed By: #### C BC ####[facility] Tomjvjalwt[address] [place], [place] [address]Dr. Shahbaz Rogel EO # 0.2 103/ul Normal 0.0-0.7 [facility] Comment on above: Performed By: #### C BC ####[facility] Ipiecwvouz77[address] [place] [address]Dr. Shahbaz Rogel Eosinophils/100 WBC (Bld) 5.2 % Normal 0.9-7.0 [facility] Comment on above: Performed By: #### C BC ####[facility] Qamrxpgesl[address] [place], [place] [address]Dr. Shahbaz Rogel Erythrocyte distribution width (RBC) [Ratio] 12.7 % Normal 11.0-15.0 [facility] Comment on above: Performed By: #### C BC ####[facility] Seueoyrglr[address] [place], [place] [address]Dr. Shahbaz Rogel Hematocrit (Bld) [Volume fraction] 46.4 % Normal 36.0-48.0 [facility] Comment on above: Performed By: #### C BC ####[facility] Qumqbzeruu[address] [place], [place] [address]Dr. Shahbaz Rogel Hemoglobin (Bld) [Mass/Vol] 14.9 g/dL Normal 12.0-16.0 [facility] Comment on above: Performed By: #### C BC ####[facility] Hpltoysyms[address] [place], [place] [address]Dr. Shahbaz Rogel IG # 0.00 10e3/ul Normal 0.00-0.03 [facility] Comment on above: Performed By: #### C BC ####[facility] Nhcvfymcje[address] [place], [place] [address]Dr. Shahbaz Rogel IG % 0.0 % Normal 0.0-0.5 [facility] Comment on above: Performed By: #### C BC ####[facility] Ownrknrxwu1370[address] [place], [place] [address]Dr. Shahbaz Rogel LYMPH # 1.1 103/ul Critically low 1.2-3.8 [facility] Comment on above: Performed By: #### C BC ####[facility] Loppxezwhc[address] [place], [place] [address]Dr. Shahbaz Rogel Lymphocytes/100 WBC (Bld) 25.5 % Normal 20.5-60.0 [facility] Comment on above: Performed By: #### C BC ####[facility] Ypcydiksos[address] [place] [address]Dr. Shahbaz Rogel MANUAL DIFF REQ NO Normal [facility] Comment on above: Performed By: #### C BC ####[facility] Xasxljrniq25[address] [place] [phone]. Shahbaz Rogel MCH (RBC) [Entitic mass] 27.8 pg Normal 26.7-34.0 [facility] Comment on above: Performed By: #### C BC ####[facility] Abdvqugybi10[address] [place] [address]Dr. Shahbaz Rogel MCHC (RBC) [Mass/Vol] 32.1 g/dL Normal 29.9-35.2 [facility] Comment on above: Performed By: #### C BC ####[facility] Hedfntkqxq50[address] [place], [place] [address]Dr. Shahbaz Rogel MCV (RBC) [Entitic vol] 86.6 fL Normal 81.0-99.0 [facility] Comment on above: Performed By: #### C BC ####[facility] Fglyankpif9734[address] [place], [place] [address]Dr. Shahbaz Rogel MONO # 0.2 103/ul Critically low 0.3-0.8 [facility] Comment on above: Performed By: #### C BC ####[facility] Frtfonwcbd7014[address] [place], [place] [address]Dr. Shahbaz Rogel Monocytes/100 WBC (Bld) 5.4 % Normal 1.7-12.0 [facility] Comment on above: Performed By: #### C BC ####[facility] Zgenzboyuf[address] [place], [place] [address]DrChen Rogel NEUT # 2.7 103/ul Normal 1.4-6.5 [facility] Comment on above: Performed By: #### C BC ####[facility] Lvdpiuhfxx59[address] [place], [place] [address]Dr. Shahbaz Rogel Neutrophils/100 WBC (Bld) 63.4 % Normal 43.0-75.0 [facility] Comment on above: Performed By: #### C BC ####[facility] Biwpfdugsi14[address] [place] [phone]. Shahbaz Rogel Platelet mean volume (Bld) [Entitic vol] 9.4 fL Critically low 9.5-13.5 [facility] Comment on above: Performed By: #### C BC ####[facility] Secjbmdzmq39[address] [place] [address]Dr. Shahbaz Rogel PLT 216 103/ul Normal 150-450 [facility] Comment on above: Performed By: #### C BC ####[facility] Hjjkgfztkd5858 [place] [phone]. Shahbaz Rogel RBC 5.36 106/ul Normal 4.20-5.40 [facility] Comment on above: Performed By: #### C BC ####[facility] Kgtrawnhep8[address] [place] [address]Dr. Shahbaz Rogel WBC 4.2 103/ul Normal 4.0-11.0 [facility] Comment on above: Performed By: #### C BC ####[facility] Kwmrgpzbhs1636 [place] [phone]. Shahbaz Rogel FREE THYROXINE INDEX T7on FTI 2.92 Normal 1.30-4.50 [facility] Comment on above: Performed By: #### C MP, LIPID, T7, TSH ####[facility] Azvojkmlya[address] [place] [address]Dr. Shahbaz Juan F T3U 37.0 % Normal 30.0-39.0 [facility] Comment on above: Performed By: #### C MP, LIPID, T7, TSH ####[facility] Sluzktgmbc0619 [place] [phone]. Shahbaz Juan F T4 [Mass/Vol] 7.90 ug/dL Normal 4.80-13.90 [facility] Comment on above: Performed By: #### C MP, LIPID, T7, TSH ####[facility] Zmercqzjsu78[address] [place] [phone]. Shahbaz Orgel GLYCOHEMOGLOBIN A1Con 2022 ADA RECOMMENDATION SEE BELOW Normal [facility] Comment on above: Result Comment: ADA RECOMMENDED LIMIT 4.0 - 6.0 ADA THERAPEUTIC TARGET < 7.0 ACTION SUGGESTED > 7.0 Performed By: #### A 1C ####[facility] F[address]iodurhqf[address] [place], [place] [address]Dr. Shahbaz Rogel Glucose [Mass/Vol] 120 mg/dL Normal [facility] Comment on above: Performed By: #### A 1C ####[facility] Teoczodbwf[address] [place], [place] [address]Dr. Shahbaz Rogel HbA1c (Bld) [Mass fraction] 5.8 % Normal 4.5-6.2 [facility] Comment on above: Performed By: #### A 1C ####[facility] Pqztbiyxfp[address] [place], [place] [address]Dr. Shahbaz Rogel IRONon 11-01-2022 Iron [Mass/Vol] 54.0 ug/dL Normal 50.0-170.0 [facility] Comment on above: Performed By: #### I GRIS ####[facility] Xfgtwnveqr5[address] [place], [place] [address]Dr. Shahbaz Rogel LIPID PROFILEon 11-01-2022 CHOL-HDL RATIO NORM SEE BELOW Normal [facility] Comment on above: Result Comment: 3.3 - 4.4 LOW RISK 4.4 - 7.1 AVERAGE RISK 7.1 - 11.0 MODERATE RISK >11.0 HIGH RISK Performed By: #### C MP, LIPID, T7, TSH ####[facility] Owlyrdpqmz[address] [place], [place] [address]Dr. Shahbaz Rogel Cholesterol [Mass/Vol] 203 mg/dL Critically high <=200 [facility] Comment on above: Performed By: #### C MP, LIPID, T7, TSH ####[facility] Obijnoqqca[address] [place], [place] [address]Dr. Shahbaz Rogel Cholesterol in HDL [Mass/Vol] 42 mg/dL Normal 40-60 [facility] Comment on above: Performed By: #### C MP, LIPID, T7, TSH ####[facility] Tfdgfqlzsb135[address] [place], [place] [address]Dr. Shahbaz Rogel Cholesterol in LDL [Mass/Vol] 121.4 mg/dL Normal [facility] Comment on above: Performed By: #### C MP, LIPID, T7, TSH ####[facility] Wuxdynvkwf87[address] [place] [phone]. Shahbaz Rogel Cholesterol.total/Chol esterol in HDL [Mass ratio] 4.8 {ratio} Normal [facility] Comment on above: Performed By: #### C MP, LIPID, T7, TSH ####[facility] Yexfsfhaxz5087 [place] [phone]. Shahbaz Rogel HDL NORMAL > or = 60 mg/dl - LO W CARDIOVASCULAR RISK <40 mg/dl - HIGH CARDIOVASCULAR RISK Normal [facility] Comment on above: Performed By: #### C MP, LIPID, T7, TSH ####[facility] Zbozwekozf264[address] [place] [phone]. Shahbaz Rogel LDL CALC NORMAL SEE BELOW Normal [facility] Comment on above: Result Comment: <100 mg/dl OPTIMAL 100 - 129 mg/dl NEAR OR ABOVE OPTIMAL 130 - 159 mg/dl BORDERLINE HIGH 160 - 189 mg/dl HIGH >190 mg/dl VERY HIGH Performed By: #### C MP, LIPID, T7, TSH ####[facility] Okzsxwyuim39[address] [place] [phone]. Shahbaz Rogel Triglyceride [Mass/Vol] 198 mg/dL Critically high <=150 [facility] Comment on above: Performed By: #### C MP, LIPID, T7, TSH ####[facility] N[address]qdysisdc1965 [place] [phone]. Shahbaz Rogel VLDL CALC 39.6 mg/dL Normal [facility] Comment on above: Performed By: #### C MP, LIPID, T7, TSH ####[facility] Sqowtecxuf4762 [place] [phone]. Shahbaz Rogel PROF 14(COMP METB)on 023 Albumin [Mass/Vol] 4.1 g/dL Normal 3.4-5.0 [facility] Comment on above: Performed By: #### C MP, LIPID, T7, TSH ####[facility] Yhugfqeghy[address] [place] [address]Dr. Shahbaz Rogel Albumin/Globulin [Mass ratio] 1.0 {ratio} Normal [facility] Comment on above: Performed By: #### C MP, LIPID, T7, TSH ####[facility] Vqayixjxir44[address] [place] [address]Dr. Shahbaz Juan F ALP [Catalytic activity/Vol] 126 U/L Critically high 46-116 [facility] Comment on above: Performed By: #### C MP, LIPID, T7, TSH ####[facility] Deifyyyhho66[address] [place] [address]Dr. Shahbaz Rogel ALT [Catalytic activity/Vol] 30 U/L Normal 14-59 [facility] Comment on above: Performed By: #### C MP, LIPID, T7, TSH ####[facility] Moddcxvupd7482 [place] [address]Dr. Shahbaz Rogel Anion gap [Moles/Vol] 12.3 mmol/L Normal [facility] Comment on above: Performed By: #### C MP, LIPID, T7, TSH ####[facility] Dhqpbftfyx8084 [place] [address]Dr. Shahbaz Rogel AST [Catalytic activity/Vol] 25 U/L Normal 15-37 [facility] Comment on above: Performed By: #### C MP, LIPID, T7, TSH ####[facility] Tgyzdaorgx29[address] [place] [address]Dr. Shahbaz Rogel Bilirubin [Mass/Vol] 0.5 mg/dL Normal 0.2-1.0 [facility] Comment on above: Performed By: #### C MP, LIPID, T7, TSH ####[facility] Vymglrzwbw12[address] [place] [address]Dr. Shahbaz Rogel Calcium [Mass/Vol] 9.4 mg/dL Normal 8.5-10.1 [facility] Comment on above: Performed By: #### C MP, LIPID, T7, TSH ####[facility] Lqtfnedjzq6760 [place] [address]Dr. Shahbaz Rogel Chloride [Moles/Vol] 104 mmol/L Normal 98-107 [facility] Comment on above: Performed By: #### C MP, LIPID, T7, TSH ####[facility] Gkviccbmwd7080 [place] [address]Dr. Shahbaz Rogel CO2 [Moles/Vol] 29.6 mmol/L Normal 21.0-32.0 [facility] Comment on above: Performed By: #### C MP, LIPID, T7, TSH ####[facility] Bygmubjjga32[address] [place] [address]Dr. Shahbaz Rogel Creatinine [Mass/Vol] 0.91 mg/dL Normal 0.55-1.02 [facility] Comment on above: Performed By: #### C MP, LIPID, T7, TSH ####[facility] Gyonvehrzh8395 [place] [address]Dr. Shahbaz Rogel EGFR-AF [place] >60 Normal >=60 [facility] Comment on above: Performed By: #### C MP, LIPID, T7, TSH ####[facility] Tyvthtfksr5950 [place] [address]Dr. Shahbaz Rogel EGFR-NON AF [place] >60 Normal >=60 [facility] Comment on above: Performed By: #### C MP, LIPID, T7, TSH ####[facility] Ipamwatksi[address] [place], [place] [address]Dr. Shahbaz Rogel Globulin (S) [Mass/Vol] 4.0 g/dL Normal [facility] Comment on above: Performed By: #### C MP, LIPID, T7, TSH ####[facility] Ctdynpvuxu26[address] [place] [address]Dr. Shahbaz Rogel Glucose [Mass/Vol] 85 mg/dL Normal 74-106 [facility] Comment on above: Performed By: #### C MP, LIPID, T7, TSH ####[facility] Bjstermpyw8587 [place] [address]Dr. Shahbaz Rogel Potassium [Moles/Vol] 3.9 mmol/L Normal 3.5-5.1 [facility] Comment on above: Performed By: #### C MP, LIPID, T7, TSH ####[facility] Yeeepdaafq28[address] [place] [address]Dr. Shahbaz Rogel Protein [Mass/Vol] 8.1 g/dL Normal 6.4-8.2 [facility] Comment on above: Performed By: #### C MP, LIPID, T7, TSH ####[facility] Hpikwllmpl4185 [place] [phone]. Shahbaz Rogel Sodium [Moles/Vol] 142 mmol/L Normal 136-145 [facility] Comment on above: Performed By: #### C MP, LIPID, T7, TSH ####[facility] Hyhwmnzzxj3902 [place] [phone]. Shahbaz Rogel Urea nitrogen [Mass/Vol] 9.0 mg/dL Normal 7.0-18.0 [facility] Comment on above: Performed By: #### C MP, LIPID, T7, TSH ####[facility] Mzrvbqzyjf5[address] [place] [address]Dr. Shahbaz Rogel Urea nitrogen/Creatinine [Mass ratio] 9.9 mg/mg Normal [facility] Comment on above: Performed By: #### C MP, LIPID, T7, TSH ####[facility] Tcxepibqgk58[address] [place] [address]Dr. Shahbaz Rogel TSHon 11-01-2022 TSH 0.045 uIU/mL Critically low 0.358-3.74 0 [facility] Comment on above: Performed By: #### C MP, LIPID, T7, TSH ####[facility] Mttvniwkpm1916 [place] [address]Dr. Shahbaz Rogel XR HUMERUS LT MIN 2Von 10-01 XR HUMERUS LT MIN 2V Normal [facility] XR LSPINE 2_3 VIEWSon 2021 XR LSPINE 2_3 VIEWS Normal [facility] XR CHEST 1 Von 08-25-2022 XR CHEST 1 V Normal [facility] ACID FAST SMEAR AND CXon Acid Fast Culture Negative Normal [facility] Comment on above: Result Comment: No a ninfa fast bacilli isolated after 6 weeks. Performed By: #### A FB ####[facility] Gbznlzdige96[address] [place] [address]Dr. Shahbaz Rogel Acid Fast Smear Negative Normal [facility] Comment on above: Performed By: #### A FB ####[facility] Abresmnfks3202 [place], [place] [address]Ww. Shahbaz Rogel [employer] Specimen Processing Concentration Normal [facility] Comment on above: Performed By: #### A FB ####[facility] Duxobkpdzy5803 [place], [place] [address]Gf. Shahbaz Rogel Bacteria identified Anaer cx Nom (Unsp spec)Ordered By: Rodolfo Harley on 08-13-2022 Anaerobic microbial culture No Anaerobes Isolated 3 Days [facility] Basophils Auto (Bld) [#/Vol] Ordered By: Rodolfo Harley on 08-12-2022 Basophils (Bld) [#/Vol] 0.0 10*3/uL 0.0-0.2 [facility] Basophils/100 WBC Auto (Bld) Ordered By: Rodolfo Harley on 08-12-2022 Basophils/100 WBC (Bld) 0.4 % . [facility] Creatinine and Glomerular fi ltration rate.predicted panel (S/P/Bld)Ordered By: Rodolfo Harley on 08-12-2022 Creatinine [Mass/Vol] 0.74 mg/dL 0.44-1.03 [facility] Eosinophils Auto (Bld) [#/Vo l]Ordered By: Rodolfo Harley on 08-12-2022 Eosinophils (Bld) [#/Vol] 0.0 10*3/uL 0.0-0.45 [facility] Eosinophils/100 WBC Auto (Bl d)Ordered By: Rodolfo Harley on 08-12-2022 Eosinophils/100 WBC (Bld) 0.0 % . [facility] Erythrocyte distribution wid th Auto (RBC) [Ratio]Ordered By: Rodolfo Harley on 08-12-2022 Erythrocyte distribution width (RBC) [Ratio] 14.2 % 11.9-15.3 [facility] Estimated glomerular filtrat ion rate (GFR) non- AmericanOrdered By: Rodolfo Harley on 08-12-2022 GFR/1.73 sq M.predicted among non-blacks MDRD (S/P/Bld) [Vol rate/Area] > 60 mL/Min [facility] Hematocrit Auto (Bld) [Volum e fraction]Ordered By: Rodolfo Harley on 08-12-2022 Hematocrit (Bld) [Volume fraction] 38.0 % 34.0-46.4 [facility] Hemoglobin [Mass/volume] in BloodOrdered By: Rodolfo Harley on 08-12-2022 Hemoglobin (Bld) [Mass/Vol] 12.5 g/dL 11.8-15.4 [facility] Laboratory - Hematology and Cell countsOrdered By: Rodolfo Harley on 08-12-2022 Nucleated RBC/100 WBC (Bld) [Ratio] 0.1 % 0-0.5 [facility] Leukocytes [#/volume] in Blo od by Automated countOrdered By: Rodolfo Harley on 08-12-2022 WBC (Bld) [#/Vol] 5.8 10*3/uL 4.5-11.0 [facility] Lymphocytes Auto (Bld) [#/Vo l]Ordered By: Rodolfo Harley on 08-12-2022 Lymphocytes (Bld) [#/Vol] 0.7 10*3/uL 1.00-4.8 [facility] Lymphocytes/100 WBC Auto (Bl d)Ordered By: Rodolfo Harley on 08-12-2022 Lymphocytes/100 WBC (Bld) 11.4 % . [facility] MCH Auto (RBC) [Entitic mass ]Ordered By: Rodolfo Harley on 08-12-2022 MCH (RBC) [Entitic mass] 28.1 pg 24.7-34.3 [facility] MCHC Auto (RBC) [Mass/Vol]Or dered By: Rodolfo Harley on 08-12-2022 MCHC (RBC) [Mass/Vol] 32.9 g/dL 32.0-35.0 [facility] MCV Auto (RBC) [Entitic vol] Ordered By: Rodolfo Harley on 08-12-2022 MCV (RBC) [Entitic vol] 85.4 fL 80-100 [facility] Monocytes Auto (Bld) [#/Vol] Ordered By: Rodolfo Harley on 08-12-2022 Monocytes (Bld) [#/Vol] 0.3 10*3/uL 0.0-0.8 [facility] Monocytes/100 WBC Auto (Bld) Ordered By: Rodolfo Harley on 08-12-2022 Monocytes/100 WBC (Bld) 4.8 % . [facility] Neutrophils Auto (Bld) [#/Vo l]Ordered By: Rodolfo Harley on 08-12-2022 Neutrophils (Bld) [#/Vol] 4.8 10*3/uL 1.8-7.7 [facility] Neutrophils/100 WBC Auto (Bl d)Ordered By: Rodolfo Harley on 08-12-2022 Neutrophils/100 WBC (Bld) 83.4 % . [facility] No Panel InformationOrdered By: Rodolfo Harley on 08-12-2022 Estimated GFR () > 60 mL/Min [facility] Comment on above: GFR estimated refere nce range: According to KDOQI guidelines, <60 ml/min/1.73m2 is sufficient to diagnose a patient with chronic kidney disease. Pharmacy Creatinine Clearance (Chem 59.45 [facility] Platelet mean volume Auto (B ld) [Entitic vol]Ordered By: Rodolfo Harley on 08-12-2022 Platelet mean volume (Bld) [Entitic vol] 7.9 fL 6.3-10.7 [facility] Platelets Auto (Bld) [#/Vol] Ordered By: Rodolfo Harley on 08-12-2022 Platelets (Bld) [#/Vol] 196 10*3/uL 150-450 [facility] RBC Auto (Bld) [#/Vol]Ordere d By: Rodolfo Harley on 08-12-2022 RBC (Bld) [#/Vol] 4.45 10*6/uL 3.60-5.00 [facility] Serum or plasma anion gap de terminationOrdered By: Rodolfo Harley on 08-12-2022 Anion gap [Moles/Vol] 7.5 mmol/L 6.0-15.0 [facility] Serum or plasma calcium dagoberto urement (mass/volume)Ordered By: Rodolfo Harley on 08-12-2022 Calcium [Mass/Vol] 8.7 mg/dL 8.2-10.2 [facility] Serum or plasma chloride anahy surement (moles/volume)Ordered By: Rodolfo Harley on 08-12-2022 Chloride [Moles/Vol] 108 mmol/L 95-114 [facility] Serum or plasma glucose dagoberto urement (mass/volume)Ordered By: Rodolfo Harley on 08-12-2022 Glucose [Mass/Vol] 133 mg/dL 70-100 [facility] Comment on above: ADA recommended refe rence rangeRandom Glucose Reference Range is dependent on time and content of last meal. Glucose of more than 200 mg/dL in a nonstressed, ambulatory subject supports the diagnosis of Diabetes Mellitus. Serum or plasma potassium me asurement (moles/volume)Ordered By: Rodolfo Harley on 08-12-2022 Potassium [Moles/Vol] 3.7 mmol/L 3.5-5.1 [facility] Serum or plasma sodium measu rement (moles/volume)Ordered By: Rodolfo Harley on 08-12-2022 Sodium [Moles/Vol] 139 mmol/L 136-146 [facility] Serum or plasma total carbon dioxide measurement (moles/volume)Ordered By: Rodolfo Harley on 08-12-2022 CO2 [Moles/Vol] 27.2 mmol/L 22.0-30.0 [facility] Serum or plasma urea nitroge n measurement (mass/volume)Ordered By: Rodolfo Harley on 08-12-2022 Urea nitrogen [Mass/Vol] 14 mg/dL 9-23 [facility] ABO and Rh group post transf usion reaction Nom (Bld)Ordered By: Rodolfo Harley on 08-10-2022 Microscopic observation Gram stain Nom (Unsp spec) [facility] AFB cultureOrdered By: Sissy Harley on 08-10-2022 Mycobacterium sp identified Org specific cx Nom (Unsp spec) [facility] AFB smearOrdered By: Rodolfo Harley on 08-10-2022 Microscopic observation Smear Nom (Unsp spec) [facility] Aerobic cultureOrdered By: Margie Harley on 08-10-2022 Bacteria identified Aer cx Nom (Unsp spec) No Growth 2 Days [facility] Anaerobic cultureOrdered By: Rodolfo Harley on 08-10-2022 Bacteria identified Anaer cx Nom (Unsp spec) No Anaerobes Isolated 3 Days [facility] Arterial blood standard base excess determination by calculationOrdered By: Rodolfo Harley on 08-10-2022 Base excess standard Calc (BldA) [Moles/Vol] 5 mmol/L -2-3 [facility] Blood carbon dioxide, total measurement by calculation (moles/volume)Ordered By: Rodolfo Harley on 08-10-2022 CO2 Calc (Bld) [Moles/Vol] 30 mmol/L 23-[address] [facility] [address] biopsyOrdered By: Rodolfo Harley on 08-10-2022 Hematocrit (Bld) [Volume fraction] 40.0 % 38.0-51.0 [facility] Fungal cultureOrdered By: Rolanda Harley on 08-10-2022 Fungus identified Cx Nom (Unsp spec) [facility] Glucose Glucometer (BldC) [M ass/Vol]Ordered By: Rodolfo Harley on 08-10-2022 Glucose [Mass/Vol] 126 mg/dL 70-105 [facility] Gram stain for investigation of transfusion reactionOrdered By: Rodolfo Harley on 08-10-2022 Microscopic observation Gram stain Nom (Unsp spec) [facility] Hemoglobin Calc (Bld) [Mass/ Vol]Ordered By: Rodolfo Harley on 08-10-2022 Hemoglobin (Bld) [Mass/Vol] 13.6 g/dL 12.0-17.0 [facility] Monocyte %Ordered By: Jean Harley on 08-10-2022 Monocyte % 39.9 mm[Hg] 35-51 [facility] Monocyte % 45 mm[Hg] 80-105 [facility] No Panel InformationOrdered By: Rodolfo Harley on 08-10-2022 Chlamydia psittaci Antibodies <1:10 Neg:<1:10 [facility] Comment on above: This test was develo ped and its performance characteristicsdetermined by [employer]. It has not been cleared or approvedby the Food and Drug Administration. The FDA hasdetermined that such clearance or approval is notnecessary.Performed at: [address], [place], [place] [id number] Director: Shelly Vargas MD, Phone: [phone] Potassium (Bld) [Moles/Vol]O rdered By: Rodolfo Harley on 08-10-2022 Potassium [Moles/Vol] 3.8 mmol/L 3.5-4.9 [facility] Sodium (Bld) [Moles/Vol]Orde red By: Rodolfo Harley on 08-10-2022 Sodium [Moles/Vol] 141 mmol/L 138-146 [facility] Whole blood bicarbonate dagoberto urementOrdered By: Rodolfo Harley on 08-10-2022 HCO3 (Bld) [Moles/Vol] 29.1 mmol/L 22.0-28.0 [facility] Whole blood ionized calcium measurement (moles/volume)Ordered By: Rodolfo Harley on 08-10-2022 Calcium.ionized (Bld) [Moles/Vol] 1280 mmol/L 1.12-1.32 [facility] Whole blood oxygen saturatio n measurementOrdered By: Rodolfo Harley on 08-10-2022 Oxygen saturation in Blood 84 % 95-98 [facility] Comment on above: Reference ranges ref lect baseline specimens only Whole blood pHOrdered By: Rolanda Harley on 08-10-2022 pH (Bld) 7.470 Units 7.31-7.45 [facility] Urine culture routineOrdered By: Rodolfo Harley on 08-07-2022 Bacteria identified Cx Nom (U) 2 Days [facility] Activated partial thrombopla stin time (aPTT) in platelet poor plasma by coagulation aOrdered By: Rodolfo Harley on 08-05-2022 aPTT Coag (PPP) [Time] 35.9 s 25.1-36.5 [facility] Basophils Auto (Bld) [#/Vol] Ordered By: Rodolfo Harley on 08-05-2022 Basophils (Bld) [#/Vol] 0.0 10*3/uL 0.0-0.2 [facility] Basophils/100 WBC Auto (Bld) Ordered By: Rodolfo Harley on 08-05-2022 Basophils/100 WBC (Bld) 0.5 % . [facility] Body fluid albumin measureme nt (mass/volume)Ordered By: Rodolfo Harley on 08-05-2022 Albumin (Body fld) [Mass/Vol] 3.8 g/dL 3.2-5.5 [facility] COVID-19 Positive/NegativeOr dered By: Rodolfo Harley on 08-05-2022 SARS-CoV-2 (COVID-19) N gene PAVAN+probe Ql (Resp) Negative Negative [facility] Comment on above: Testing for SARS-CoV -2 by RT-PCRThis test was developed and its performance characteristics determined by [employer] ([facility]) and validated at the [facility]. This test has not been FDA [...] on 08-05-2022 Creatinine [Mass/Vol] 0.97 mg/dL 0.44-1.03 [facility] Eosinophils Auto (Bld) [#/Vo l]Ordered By: Rodolfo Harley on 08-05-2022 Eosinophils (Bld) [#/Vol] 0.2 10*3/uL 0.0-0.45 [facility] Eosinophils/100 WBC Auto (Bl d)Ordered By: Rodolfo Harley on 08-05-2022 Eosinophils/100 WBC (Bld) 4.9 % . [facility] Erythrocyte distribution wid th Auto (RBC) [Ratio]Ordered By: Rodolfo Harley on 08-05-2022 Erythrocyte distribution width (RBC) [Ratio] 14.5 % 11.9-15.3 [facility] Estimated glomerular filtrat ion rate (GFR) non- AmericanOrdered By: Rodolof Harley on 08-05-2022 GFR/1.73 sq M.predicted among non-blacks MDRD (S/P/Bld) [Vol rate/Area] 59 mL/Min [facility] FUNGAL CULTUREon 08-05-2022 Fungus (Mycology) Culture Final report Abnormal [facility] Comment on above: Performed By: #### C XFUN ####[facility] [address] [place] [address]DrChen Rogel Fungus Stain Final report Normal [facility] Comment on above: Performed By: #### C XFUN ####[facility] [address] [place], [place] [address]Dr. Shahbaz Rogel Result 1 Comment Abnormal [facility] Comment on above: Result Comment: MILADYS/ Calcofluor preparation: no fungus observed. Performed By: #### C XFUN ####[facility] [address] [place] [id number]. Shahbaz Rogel Result Comment: Aspe rgillus versicolor Result 2 Penicillium species Abnormal [facility] Comment on above: Performed By: #### C XFUN ####[facility] [address] [place], [place] [address]DrChen Rogel Globulin Calc (S) [Mass/Vol] Ordered By: Rodolfo Harley on 08-05-2022 Globulin (S) [Mass/Vol] 2.9 g/dL [facility] Hematocrit Auto (Bld) [Volum e fraction]Ordered By: Rodolfo Harley on 08-05-2022 Hematocrit (Bld) [Volume fraction] 43.3 % 34.0-46.4 [facility] Hemoglobin [Mass/volume] in BloodOrdered By: Rodolfo Harley on 08-05-2022 Hemoglobin (Bld) [Mass/Vol] 14.3 g/dL 11.8-15.4 [facility] Laboratory - CoagulationOrde red By: Rodolfo Harley on 08-05-2022 PT Coag (PPP) [Time] 12.4 s 9.0-12.9 [facility] Laboratory - Hematology and Cell countsOrdered By: Rodolfo Harley on 08-05-2022 Nucleated RBC/100 WBC (Bld) [Ratio] 0.0 % 0-0.5 [facility] Leukocytes [#/volume] in Blo od by Automated countOrdered By: Rodolfo Harley on 08-05-2022 WBC (Bld) [#/Vol] 3.4 10*3/uL 4.5-11.0 [facility] Lymphocytes Auto (Bld) [#/Vo l]Ordered By: Rodolfo Harley on 08-05-2022 Lymphocytes (Bld) [#/Vol] 0.9 10*3/uL 1.00-4.8 [facility] Lymphocytes/100 WBC Auto (Bl d)Ordered By: Rodolfo Harley on 08-05-2022 Lymphocytes/100 WBC (Bld) 27.2 % . [facility] MCH Auto (RBC) [Entitic mass ]Ordered By: Rodolfo Harley on 08-05-2022 MCH (RBC) [Entitic mass] 28.4 pg 24.7-34.3 [facility] MCHC Auto (RBC) [Mass/Vol]Or dered By: Rodolfo Harley on 08-05-2022 MCHC (RBC) [Mass/Vol] 33.1 g/dL 32.0-35.0 [facility] MCV Auto (RBC) [Entitic vol] Ordered By: Rodolfo Harley on 08-05-2022 MCV (RBC) [Entitic vol] 85.9 fL 80-100 [facility] Monocytes Auto (Bld) [#/Vol] Ordered By: Rodolfo Harley on 08-05-2022 Monocytes (Bld) [#/Vol] 0.3 10*3/uL 0.0-0.8 [facility] Monocytes/100 WBC Auto (Bld) Ordered By: Rodolfo Harley on 08-05-2022 Monocytes/100 WBC (Bld) 7.5 % . [facility] Neutrophils Auto (Bld) [#/Vo l]Ordered By: Rodolfo Harley on 08-05-2022 Neutrophils (Bld) [#/Vol] 2.0 10*3/uL 1.8-7.7 [facility] Neutrophils/100 WBC Auto (Bl d)Ordered By: Rodolfo Harley on 08-05-2022 Neutrophils/100 WBC (Bld) 59.9 % . [facility] No Panel InformationOrdered By: Rodolfo Harley on 08-05-2022 Estimated GFR () > 60 mL/Min [facility] Comment on above: GFR estimated refere nce range: According to KDOQI guidelines, <60 ml/min/1.73m2 is sufficient to diagnose a patient with chronic kidney disease. Pharmacy Creatinine Clearance (Chem N/A [facility] Platelet mean volume Auto (B ld) [Entitic vol]Ordered By: Rodolfo Harley on 08-05-2022 Platelet mean volume (Bld) [Entitic vol] 8.1 fL 6.3-10.7 [facility] Platelet poor plasma interna tional normalized ratio (INR) by coagulation assay (relatOrdered By: Rodolfo Harley on 08-05-2022 INR Coag (PPP) [Relative time] 1.1 {INR} [facility] Comment on above: INR Therapeutic Rang [...] 08-05-2022 Platelets (Bld) [#/Vol] 243 10*3/uL 150-450 [facility] Protein [Mass/volume] in Ser um or PlasmaOrdered By: Rodolfo Harley on 08-05-2022 Protein [Mass/Vol] 6.7 g/dL 6.1-7.9 [facility] RBC Auto (Bld) [#/Vol]Ordere d By: Rodolfo Harley on 08-05-2022 RBC (Bld) [#/Vol] 5.04 10*6/uL 3.60-5.00 [facility] Serum or plasma alanine snyder otransferase measurement without P-5'-P (enzymatic activiOrdered By: Rodolfo Harley on 08-05-2022 ALT No additional P-5'-P [Catalytic activity/Vol] 14 U/L 10-60 [facility] Serum or plasma albumin/glob ulin mass ratioOrdered By: Rodolfo Harley on 08-05-2022 Albumin/Globulin [Mass ratio] 1.3 {ratio} [facility] Serum or plasma alkaline sruthi sphatase measurement (enzymatic activity/volume)Ordered By: Rodolfo Harley on 08-05-2022 ALP [Catalytic activity/Vol] 91 U/L 32-92 [facility] Serum or plasma anion gap de terminationOrdered By: Rodolfo Harley on 08-05-2022 Anion gap [Moles/Vol] 14.3 mmol/L 6.0-15.0 [facility] Serum or plasma aspartate am inotransferase measurement (enzymatic activity/volume)Ordered By: Rodolfo Harley on 08-05-2022 AST [Catalytic activity/Vol] 21 U/L 10-42 [facility] Serum or plasma calcium dagoberto urement (mass/volume)Ordered By: Rodolfo Harley on 08-05-2022 Calcium [Mass/Vol] 9.5 mg/dL 8.2-10.2 [facility] Serum or plasma chloride anahy surement (moles/volume)Ordered By: Rodolfo Harley on 08-05-2022 Chloride [Moles/Vol] 102 mmol/L 95-114 [facility] Serum or plasma glucose dagoberto urement (mass/volume)Ordered By: Rodolfo Harley on 08-05-2022 Glucose [Mass/Vol] 76 mg/dL 70-100 [facility] Comment on above: ADA recommended refe rence rangeRandom Glucose Reference Range is dependent on time and content of last meal. Glucose of more than 200 mg/dL in a nonstressed, ambulatory subject supports the diagnosis of Diabetes Mellitus. Serum or plasma potassium me asurement (moles/volume)Ordered By: Rodolfo Harley on 08-05-2022 Potassium [Moles/Vol] 3.8 mmol/L 3.5-5.1 [facility] Serum or plasma sodium measu rement (moles/volume)Ordered By: Rodolfo Harley on 08-05-2022 Sodium [Moles/Vol] 138 mmol/L 136-146 [facility] Serum or plasma total biliru bin measurement (mass/volume)Ordered By: Rodolfo Harley on 08-05-2022 Bilirubin [Mass/Vol] 0.7 mg/dL 0.3-1.2 [facility] Serum or plasma total carbon dioxide measurement (moles/volume)Ordered By: Rodolfo Harley on 08-05-2022 CO2 [Moles/Vol] 25.5 mmol/L 22.0-30.0 [facility] Serum or plasma urea nitroge n measurement (mass/volume)Ordered By: Rodolfo Harley on 08-05-2022 Urea nitrogen [Mass/Vol] 12 mg/dL 06-24 [facility] Urine culture routineOrdered By: Rodolfo Harley on 08-05-2022 Bacteria identified Cx Nom (U) 2 Days [facility] XR ANKLE LT MIN 3 Von 2021 XR ANKLE LT MIN 3 V Normal [facility] BNPon 07-06-2022 Natriuretic peptide B (Bld) [Mass/Vol] 843.0 pg/mL Normal <=900.0 [facility] Comment on above: Performed By: #### B PAIN MANAGEMENT SPECIALIST, CRP, CMP ####[facility] [address] [place] [address]Dr. Shahbaz Rogel CBC W MANUAL DIFFon 07-06-20 22 ATYPICAL LYMPH # Normal [facility] Comment on above: Performed By: #### C CAIN ####[facility] [address] [place] [id number]. Shahbaz Rogel ATYPICAL LYMPH % Normal [facility] Comment on above: Performed By: #### C CAIN ####[facility] [address] [place] [id number]. Shahbaz Rogel BAND # 0.0 103/ul Normal 0.0-0.3 [facility] Comment on above: Performed By: #### C CAIN ####[facility] [address] [place] [id number]. Shahbaz Rogel BAND % 0 % Normal 0-5 [facility] Comment on above: Performed By: #### C BCBRICE ####[facility] [address] [place] [id number]. Shahbaz Rogel BASOM # 0.00 103/ul Normal 0.00-0.10 [facility] Comment on above: Performed By: #### C BCBRICE ####[facility] [address] [place] [address]Dr. Yijarrod Rogel BASOM % 0.0 % Critically low 0.2-2.0 [facility] Comment on above: Performed By: #### C CAIN ####[facility] [address] [place], [place] [address]Dr. Yijarrod Rogel BLAST # Normal [facility] Comment on above: Performed By: #### C CAIN ####[facility] [address] [place], [place] [address]Dr. Yilan Rogel BLAST % Normal [facility] Comment on above: Performed By: #### C CAIN ####[facility] [address] [place], [place] [address]Dr. Shahbaz Rogel CORRECTED WBC Normal 4.0-11.0 [facility] Comment on above: Performed By: #### C CAIN ####[facility] [address] [place] [address]Dr. Yijarrod Rogel EOS # 0.00 103/ul Normal 0.00-0.70 [facility] Comment on above: Performed By: #### C BCBRICE ####[facility] [address] [place] [address]Dr. Shahbaz Rogel EOS% 0.0 % Critically low 0.9-7.0 [facility] Comment on above: Performed By: #### C BCBRICE ####[facility] [address] [place], [place] [address]Dr. Shahbaz Rogel HCT 40.3 % Normal 36.0-48.0 [facility] Comment on above: Performed By: #### Cheri BARLOW ####[facility] [address] [place] [id number]. Shahbaz Rogel HGB 12.7 g/dl Normal 12.0-16.0 [facility] Comment on above: Performed By: #### Cheri BARLOW ####[facility] [address] [place] [id number]. Shahbaz Rogel LYMPHM # 0.41 103/ul Critically low 1.20-3.80 [facility] Comment on above: Performed By: #### Cheri BARLOW ####[facility] [address] [place] [id number]. Shahbaz Rogel LYMPHM% 7.0 % Critically low 20.5-60.0 [facility] Comment on above: Performed By: #### Cheri BARLOW ####[facility] [address] [place] [id number]. Shahbaz Rogel MCH 28.0 pg Normal 26.7-34.0 [facility] Comment on above: Performed By: #### Cheri BARLOW ####[facility] [address] [place] [phone]. Shahbaz Rogel MCHC 31.5 g/dl Normal 29.9-35.2 [facility] Comment on above: Performed By: #### Cheri BARLOW ####[facility] [address] [place] [phone]. Sahhbaz Rogel MCV 89.0 fL Normal 81.0-99.0 [facility] Comment on above: Performed By: #### Cheri BARLOW ####[facility] [address] [place] [id number]. Shahbaz Rogel METAMYELOCYTE # Normal [facility] Comment on above: Performed By: #### Cheri BARLOW ####[facility] [address] [place] [phone]. Shahbaz Rogel METAMYELOCYTE % Normal [facility] Comment on above: Performed By: #### Cheri BARLOW ####[facility] [address] [place] [phone]. Shahbaz Rogel MONOM# 0.00 103/ul Critically low 0.30-0.80 [facility] Comment on above: Performed By: #### C CAIN ####[facility] [address] [place] [address]Dr. Shahbaz Rogel MONOM% 0.0 % Critically low 1.7-12.0 [facility] Comment on above: Performed By: #### C CAIN ####[facility] [address] [place] [address]Dr. Shahbaz Rogel MPV 9.8 fL Normal 9.5-13.5 [facility] Comment on above: Performed By: #### C CAIN ####[facility] [address] [place], [place] [address]Dr. Shahbaz Rogel MYELOCYTE # Normal [facility] Comment on above: Performed By: #### C CAIN ####[facility] [address] [place], [place] [address]Dr. Shahbaz Rogel MYELOCYTE % Normal [facility] Comment on above: Performed By: #### C CAIN ####[facility] [address] [place], [place] [address]Dr. Shahbaz Rogel NRBC Normal [facility] Comment on above: Performed By: #### C CAIN ####[facility] [address] [place], [place] [address]Dr. Shahbaz Rogel PLT 187 103/ul Normal 150-450 [facility] Comment on above: Performed By: #### C CAIN ####[facility] [address] [place] [phone]. Shahbaz Rogel RBC 4.53 106/ul Normal 4.20-5.40 [facility] Comment on above: Performed By: #### C CAIN ####[facility] [address] [place], [place] [address]Dr. Shahbaz Rogel RDW 13.3 % Normal 11.0-15.0 [facility] Comment on above: Performed By: #### C CAIN ####[facility] [address] [place], [place] [address]Dr. Shahbaz Rogel SEG # 5.49 103/ul Normal 1.40-6.50 [facility] Comment on above: Performed By: #### C CAIN ####[facility] [address] [place] [address]Dr. Shahbaz Rogel SEG % 93.0 % Critically high 43.0-75.0 [facility] Comment on above: Performed By: #### C CAIN ####[facility] [address] [place] [address]Dr. Shahbaz Rogel WBC 5.9 103/ul Normal 4.0-11.0 [facility] Comment on above: Performed By: #### C CAIN ####[facility] [address] [place] [address]Dr. Shahbaz Rogel CRPon 07-06-2022 CRP [Mass/Vol] mg/L Normal <=1.0 [facility] Comment on above: Performed By: #### B PAIN MANAGEMENT SPECIALIST, CRP, CMP ####[facility] [address] [place], [place] [address]Dr. Lilajarrod Rogel PROF 14(COMP METB)on 022 Albumin [Mass/Vol] 3.4 g/dL Normal 3.4-5.0 [facility] Comment on above: Performed By: #### B PAIN MANAGEMENT SPECIALIST, CRP, CMP ####[facility] [address] [place] [address]Dr. Lilajarrod Rogel Albumin/Globulin [Mass ratio] 1.0 {ratio} Normal [facility] Comment on above: Performed By: #### B PAIN MANAGEMENT SPECIALIST, CRP, CMP ####[facility] [address] [place] [address]Dr. Lilajarrod Rogel ALP [Catalytic activity/Vol] 92 U/L Normal 46-116 [facility] Comment on above: Performed By: #### B PAIN MANAGEMENT SPECIALIST, CRP, CMP ####[facility] [address] [place] [address]Dr. Shahbaz Rogel ALT [Catalytic activity/Vol] 21 U/L Normal 14-59 [facility] Comment on above: Performed By: #### B PAIN MANAGEMENT SPECIALIST, CRP, CMP ####[facility] [address] [place] [id number]. Shahbaz Rogel Anion gap [Moles/Vol] 13.4 mmol/L Normal [facility] Comment on above: Performed By: #### B PAIN MANAGEMENT SPECIALIST, CRP, CMP ####[facility] [address]nzghxkl[address] [place] [address]Dr. Shahbaz Rogel AST [Catalytic activity/Vol] 16 U/L Normal 15-37 [facility] Comment on above: Performed By: #### B PAIN MANAGEMENT SPECIALIST, CRP, CMP ####[facility] O[address]rmd[address] [place] [address]Dr. Shahbaz Rogel Bilirubin [Mass/Vol] 0.2 mg/dL Normal 0.2-1.0 [facility] Comment on above: Performed By: #### B PAIN MANAGEMENT SPECIALIST, CRP, CMP ####[facility] [address]igjwjey[address] [place], [place] [address]Dr. Shahbaz Rogel Calcium [Mass/Vol] 9.3 mg/dL Normal 8.5-10.1 [facility] Comment on above: Performed By: #### B PAIN MANAGEMENT SPECIALIST, CRP, CMP ####[facility] Hswuodifkw[address] [place], [place] [address]Dr. Shahbaz Rogel Chloride [Moles/Vol] 105 mmol/L Normal 98-107 [facility] Comment on above: Performed By: #### B PAIN MANAGEMENT SPECIALIST, CRP, CMP ####[facility] Nqsfizsukh[address] [place], [place] [address]Dr. Shahbaz Rogel CO2 [Moles/Vol] 23.2 mmol/L Normal 21.0-32.0 [facility] Comment on above: Performed By: #### B PAIN MANAGEMENT SPECIALIST, CRP, CMP ####[facility] [address]laabip[address] [place] [address]Dr. Shahbaz Rogel Creatinine [Mass/Vol] 1.23 mg/dL Critically high 0.55-1.02 [facility] Comment on above: Performed By: #### B PAIN MANAGEMENT SPECIALIST, CRP, CMP ####[facility] Flkmfyjacr[address] [place] [address]Dr. Shahbaz Rogel EGFR-AF SOU[place] 55 mL/min/1.73m2 Critically low >=60 [facility] Comment on above: Performed By: #### B PAIN MANAGEMENT SPECIALIST, CRP, CMP ####[facility] Amkmljpsqd[address] [place] [address]Dr. Shahbaz Rogel EGFR-NON AF [place] 45 mL/min/1.73m2 Critically low >=60 [facility] Comment on above: Performed By: #### B PAIN MANAGEMENT SPECIALIST, CRP, CMP ####[facility] Ipypaviyxk[address] [place], [place] [address]Dr. Shahbaz Rogel Globulin (S) [Mass/Vol] 3.3 g/dL Normal [facility] Comment on above: Performed By: #### B PAIN MANAGEMENT SPECIALIST, CRP, CMP ####[facility] Dfcazomrrx[address] [place], [place] [address]Dr. Shahbaz Rogel Glucose [Mass/Vol] 171 mg/dL Critically high 74-106 T [facility] Comment on above: Performed By: #### B PAIN MANAGEMENT SPECIALIST, CRP, CMP ####[facility] Wdqwmfvsgh88[address] [place], [place] [address]Dr. Shahbaz Rogel Potassium [Moles/Vol] 3.6 mmol/L Normal 3.5-5.1 [facility] Comment on above: Performed By: #### B PAIN MANAGEMENT SPECIALIST, CRP, CMP ####[facility] Vosjmjtztg[address] [place], [place] [address]Dr. Shahbaz Rogel Protein [Mass/Vol] 6.7 g/dL Normal 6.4-8.2 [facility] Comment on above: Performed By: #### B PAIN MANAGEMENT SPECIALIST, CRP, CMP ####[facility] Okigqdndjc[address] [place], [place] [address]Dr. Shahbaz Rogel Sodium [Moles/Vol] 138 mmol/L Normal 136-145 [facility] Comment on above: Performed By: #### B PAIN MANAGEMENT SPECIALIST, CRP, CMP ####[facility] Atnwogaaws5[address] [place], [place] [address]Dr. Shahbaz Rogel Urea nitrogen [Mass/Vol] 21.0 mg/dL Critically high 7.0-18.0 [facility] Comment on above: Performed By: #### B PAIN MANAGEMENT SPECIALIST, CRP, CMP ####[facility] Nfaayvzxak[address] [place], [place] [address]Dr. Shahbaz Rogel Urea nitrogen/Creatinine [Mass ratio] 17.1 mg/mg Normal [facility] Comment on above: Performed By: #### B PAIN MANAGEMENT SPECIALIST, CRP, CMP ####[facility] Uifvtdvuax11[address] [place], [place] [address]Dr. Shahbaz Rogel XR CHEST 2 Von 07-06-2022 XR CHEST 2 V Normal [facility] BNPon 07-05-2022 Natriuretic peptide B (Bld) [Mass/Vol] 83.0 pg/mL Normal <=900.0 [facility] Comment on above: Performed By: #### C RP, CMP, BNP ####[facility] Lbkntyoejq13[address] [place], [place] [address]Dr. Shahbaz Rogel CBC AUTO DIFFon 07-05-2022 BASO # 0.0 103/ul Normal 0.0-0.1 [facility] Comment on above: Performed By: #### C BC ####[facility] Tirqkujhhs[address] [place], [place] [address]Dr. Shahbaz Rogel Basophils/100 WBC (Bld) 0.4 % Normal 0.2-2.0 [facility] Comment on above: Performed By: #### C BC ####[facility] Jtorgzewxl8125[address] [place], [place] [address]Dr. Shahbaz Rogel EO # 0.1 103/ul Normal 0.0-0.7 [facility] Comment on above: Performed By: #### C BC ####[facility] Whubtddnve14[address] [place], [place] [address]Dr. Shahbaz Rogel Eosinophils/100 WBC (Bld) 2.9 % Normal 0.9-7.0 [facility] Comment on above: Performed By: #### C BC ####[facility] Gbuaatzxjt947[address] [place], [place] [address]Dr. Shahbaz Rogel Erythrocyte distribution width (RBC) [Ratio] 13.4 % Normal 11.0-15.0 [facility] Comment on above: Performed By: #### C BC ####[facility] Lnbtegiupj8264[address] [place], [place] [address]Dr. Shahbaz Rogel Hematocrit (Bld) [Volume fraction] 41.7 % Normal 36.0-48.0 [facility] Comment on above: Performed By: #### C BC ####[facility] K[address] [place] [address]Dr. Shahbaz Rogel Hemoglobin (Bld) [Mass/Vol] 12.9 g/dL Normal 12.0-16.0 [facility] Comment on above: Performed By: #### C BC ####[facility] Eyvcacevbs13[address] [place], [place] [address]Dr. Shahbaz Rogel IG # 0.00 10e3/ul Normal 0.00-0.03 [facility] Comment on above: Performed By: #### C BC ####[facility] Szdvqrqrao[address] [place], [place] [address]Dr. Shahbaz Rogel IG % 0.0 % Normal 0.0-0.5 [facility] Comment on above: Performed By: #### C BC ####[facility] Jgsqcnyfew[address] [place], [place] [address]Dr. Shahbaz Rogel LYMPH # 1.5 103/ul Normal 1.2-3.8 [facility] Comment on above: Performed By: #### C BC ####[facility] Smjdocmxms0414[address] [place], [place] [address]Dr. Shahbaz Rogel Lymphocytes/100 WBC (Bld) 32.9 % Normal 20.5-60.0 [facility] Comment on above: Performed By: #### C BC ####[facility] Kcvplzeuat9[address] [place], [place] [address]Dr. Shahbaz Rogel MANUAL DIFF REQ NO Normal [facility] Comment on above: Performed By: #### C BC ####[facility] Zalbdtaycu[address] [place], [place] [address]Dr. Shahbaz Rogel MCH (RBC) [Entitic mass] 28.0 pg Normal 26.7-34.0 [facility] Comment on above: Performed By: #### C BC ####[facility] Qithvomlke87[address] [place], [place] [address]Dr. Shahbaz Rogel MCHC (RBC) [Mass/Vol] 30.9 g/dL Normal 29.9-35.2 [facility] Comment on above: Performed By: #### C BC ####[facility] [address]ysn[address] [place] [address]DrChen Rogel MCV (RBC) [Entitic vol] 90.5 fL Normal 81.0-99.0 [facility] Comment on above: Performed By: #### C BC ####[facility] Gctjjrekbp1423[address] [place], [place] [address]DrChen Rogel MONO # 0.4 103/ul Normal 0.3-0.8 [facility] Comment on above: Performed By: #### C BC ####[facility] Fwhogfxgtr6040[address] [place], [place] [address]DrChen Rogel Monocytes/100 WBC (Bld) 8.0 % Normal 1.7-12.0 [facility] Comment on above: Performed By: #### C BC ####[facility] Tuiwtmdtgr[address] [place], [place] [address]DrChen Rogel NEUT # 2.5 103/ul Normal 1.4-6.5 [facility] Comment on above: Performed By: #### C BC ####[facility] Lbsembqwby02[address] [place], [place] [address]DrChen Rogel Neutrophils/100 WBC (Bld) 55.8 % Normal 43.0-75.0 [facility] Comment on above: Performed By: #### C BC ####[facility] Veinxppsda827[address] [place], [place] [address]DrChen Rogel Platelet mean volume (Bld) [Entitic vol] 9.7 fL Normal 9.5-13.5 [facility] Comment on above: Performed By: #### C BC ####[facility] Aukesdablr[address] [place], [place] [address]DrChen Rogel PLT 158 103/ul Normal 150-450 [facility] Comment on above: Performed By: #### C BC ####[facility] Olhlepoxru55[address] [place], [place] [address]Dr. Shahbaz Rogel RBC 4.61 106/ul Normal 4.20-5.40 [facility] Comment on above: Performed By: #### C BC ####[facility] F[address]xs[address]cdg[address] [place] [address]Dr. Shahbaz Rogel WBC 4.5 103/ul Normal 4.0-11.0 [facility] Comment on above: Performed By: #### C BC ####[facility] Ews[address]feogfo[address] [place] [address]Dr. Shahbaz Rogel CRPon 07-05-2022 CRP [Mass/Vol] mg/L Normal <=1.0 [facility] Comment on above: Performed By: #### C RP, CMP, BNP ####[facility] Gbinxiqwgp37[address] [place] [address]Dr. Shahbaz Rogel ECHO LIMITED STUDYon 022 ECHO LIMITED STUDY Normal [facility] PROF 14(COMP METB)on 022 Albumin [Mass/Vol] 3.2 g/dL Critically low 3.4-5.0 [facility] Comment on above: Performed By: #### C RP, CMP, BNP ####[facility] Qfbwgczkhg380[address] [place] [address]Dr. Shahbaz Rogel Albumin/Globulin [Mass ratio] 1.0 {ratio} Normal [facility] Comment on above: Performed By: #### C RP, CMP, BNP ####[facility] Ilpseshlzu[address] [place] [address]Dr. Shahbaz Rogel ALP [Catalytic activity/Vol] 88 U/L Normal 46-116 [facility] Comment on above: Performed By: #### C RP, CMP, BNP ####[facility] Icfbdyluro[address] [place] [address]Dr. Shahbaz Rogel ALT [Catalytic activity/Vol] 17 U/L Normal 14-59 [facility] Comment on above: Performed By: #### C RP, CMP, BNP ####[facility] Hdwgiygkpr[address] [place] [address]Dr. Shahbaz Rogel Anion gap [Moles/Vol] 12.5 mmol/L Normal [facility] Comment on above: Performed By: #### C RP, CMP, BNP ####[facility] Mwklkpcxts70[address] [place] [address]Dr. Shahbaz Rogel AST [Catalytic activity/Vol] 18 U/L Normal 15-37 [facility] Comment on above: Performed By: #### C RP, CMP, BNP ####[facility] Mclzlhpxgk[address] [place] [address]Dr. Shahbaz Rogel Bilirubin [Mass/Vol] 0.3 mg/dL Normal 0.2-1.0 [facility] Comment on above: Performed By: #### C RP, CMP, BNP ####[facility] Gv[address]caiswj[address] [place] [address]Dr. Shahbaz Rogel Calcium [Mass/Vol] 8.9 mg/dL Normal 8.5-10.1 [facility] Comment on above: Performed By: #### C RP, CMP, BNP ####[facility] Nuozhmmmtd[address] [place], [place] [address]Dr. Shahbaz Rogel Chloride [Moles/Vol] 103 mmol/L Normal 98-107 [facility] Comment on above: Performed By: #### C RP, CMP, BNP ####[facility] Lspayeckzr[address] [place], [place] [address]Dr. Shahbaz Rogel CO2 [Moles/Vol] 28.1 mmol/L Normal 21.0-32.0 [facility] Comment on above: Performed By: #### C RP, CMP, BNP ####[facility] Nvqesyfdko4[address] [place], [place] [address]Dr. Shahbaz Rogel Creatinine [Mass/Vol] 1.24 mg/dL Critically high 0.55-1.02 [facility] Comment on above: Performed By: #### C RP, CMP, BNP ####[facility] Aqfpbaswmq[address] [place] [address]Dr. Shahbaz Rogel EGFR-AF [place] 54 mL/min/1.73m2 Critically low >=60 [facility] Comment on above: Performed By: #### C RP, CMP, BNP ####[facility] Izkhradcwm[address] [place], [place] [address]Dr. Shahbaz Rogel EGFR-NON AF [place] 45 mL/min/1.73m2 Critically low >=60 [facility] Comment on above: Performed By: #### C RP, CMP, BNP ####[facility] Plkpndzwbe66[address] [place] [address]Dr. Shahbaz Rogel Globulin (S) [Mass/Vol] 3.1 g/dL Normal [facility] Comment on above: Performed By: #### C RP, CMP, BNP ####[facility] Z[address]tkwrsvxx03[address] [place] [address]Dr. Shahbaz Rogel Glucose [Mass/Vol] 115 mg/dL Critically high 74-106 T [facility] Comment on above: Performed By: #### C RP, CMP, BNP ####[facility] Vyrqfgxeac[address] [place] [address]Dr. Shahbaz Rogel Potassium [Moles/Vol] 3.6 mmol/L Normal 3.5-5.1 [facility] Comment on above: Performed By: #### C RP, CMP, BNP ####[facility] Typgtywbhn74[address] [place] [address]Dr. Shahbaz Rogel Protein [Mass/Vol] 6.3 g/dL Critically low 6.4-8.2 [facility] Comment on above: Performed By: #### C RP, CMP, BNP ####[facility] Xodmpuahvd67[address] [place] [address]Dr. Shahbaz Rogel Sodium [Moles/Vol] 140 mmol/L Normal 136-145 [facility] Comment on above: Performed By: #### C RP, CMP, BNP ####[facility] Mwufdcmouk8[address] [place] [address]Dr. Shahbaz Rogel Urea nitrogen [Mass/Vol] 18.0 mg/dL Normal 7.0-18.0 [facility] Comment on above: Performed By: #### C RP, CMP, BNP ####[facility] Pmugopxneq65[address] [place] [address]Dr. Shahbaz Rogel Urea nitrogen/Creatinine [Mass ratio] 14.5 mg/mg Normal [facility] Comment on above: Performed By: #### C RP, CMP, BNP ####[facility] Nieguawvhi[address] [place] [id number]. Shahbaz Rogel T3, TOTAL (TRIIODOTHYRONINE) on 07-05-2022 T3, TOTAL 95 ng/dL Normal 71-180 [facility] Comment on above: Performed By: #### T 3TOTAL ####[facility] Ftikvodwnm[address] [place], [place] [address]Dr. Shahbaz Rogel CARDIAC ROSALINA 3-6on 2 CK [Catalytic activity/Vol] 78 U/L Normal 26-192 [facility] Comment on above: Performed By: #### C MREP ####[facility] Uvzazuljnn[address] [place], [place] [address]Dr. Shahbaz Rogel CK.MB [Mass/Vol] 1.44 ng/mL Normal <=3.60 [facility] Comment on above: Performed By: #### C MREP ####[facility] Orsswszpvq9[address] [place], [place] [address]Dr. Shahbaz Rogel HSTROP 9.0 pg/mL Normal 4.0-51.3 [facility] Comment on above: Result Comment: CUT- OFF POINTS HAVE BEEN ESTABLISHED BASED ON THE FOURTH UNIVERSAL DEFINITIONS OF MYOCARDIALINFARCTION. THE UPPER REFERENCE LIMIT (URL) OF TROPONIN, DEFINED THE 99TH PERCENTILE OFcTnI DISTRIBUTION IN A REFERENCE POPULATION, HAS BEEN CONFIRMED THE DECISION THRESHOLDFOR NV DIAGNOSIS. Performed By: #### C MREP ####[facility] [address]vrvqahlk[address] [place], [place] [address]Dr. Shahbaz Rogel CK [Catalytic activity/Vol] 88 U/L Normal 26-192 [facility] Comment on above: Performed By: #### C MREP ####[facility] Cbrewpigtk[address] [place] [id number]. Shahbaz Rogel CK.MB [Mass/Vol] 1.38 ng/mL Normal <=3.60 [facility] Comment on above: Performed By: #### C MREP ####[facility] Ypcqhzkbvq85[address] [place] [address]Dr. Shahbaz Rogel HSTROP 7.0 pg/mL Normal 4.0-51.3 [facility] Comment on above: Result Comment: CUT- OFF POINTS HAVE BEEN ESTABLISHED BASED ON THE FOURTH UNIVERSAL DEFINITIONS OF MYOCARDIALINFARCTION. THE UPPER REFERENCE LIMIT (URL) OF TROPONIN, DEFINED THE 99TH PERCENTILE OFcTnI DISTRIBUTION IN A REFERENCE POPULATION, HAS BEEN CONFIRMED THE DECISION THRESHOLDFOR NV DIAGNOSIS. Performed By: #### C MREP ####[facility] Scdcvjtiwf97[address] [place] [address]Dr. Shahbaz Rogel CARDIAC ROSALINA ADMITon 022 CK [Catalytic activity/Vol] 87 U/L Normal 26-192 [facility] Comment on above: Performed By: #### C JACKSON, CINDY ####[facility] Eoiutmatzz819[address] [place], [place] [address]Dr. Shahbaz Rogel CK.MB [Mass/Vol] 1.80 ng/mL Normal <=3.60 [facility] Comment on above: Performed By: #### C JACKSON, EARLDM ####[facility] Jpfyeoenyj[address] [place], [place] [address]Dr. Shahbaz Rogel HSTROP 7.6 pg/mL Normal 4.0-51.3 [facility] Comment on above: Result Comment: CUT- OFF POINTS HAVE BEEN ESTABLISHED BASED ON THE FOURTH UNIVERSAL DEFINITIONS OF MYOCARDIALINFARCTION. THE UPPER REFERENCE LIMIT (URL) OF TROPONIN, DEFINED THE 99TH PERCENTILE OFcTnI DISTRIBUTION IN A REFERENCE POPULATION, HAS BEEN CONFIRMED THE DECISION THRESHOLDFOR NV DIAGNOSIS. Performed By: #### C JACKSON, EARLDM ####[facility] Vsdqhxwsxb64[address] [place], [place] [address]Dr. Shahbaz Rogel LEN 67 ng/mL Normal 9-82 [facility] Comment on above: Performed By: #### C JACKSON, EARLDM ####[facility] Duflymrtda[address] [place] [address]Dr. Shahbaz Rogel CBC AUTO DIFFon 07-04-2022 BASO # 0.0 103/ul Normal 0.0-0.1 [facility] Comment on above: Performed By: #### C BC ####[facility] Pwunheugrb96[address] [place] [address]Dr. Shahbaz Rogel Basophils/100 WBC (Bld) 0.7 % Normal 0.2-2.0 [facility] Comment on above: Performed By: #### C BC ####[facility] Xtosoqtyym[address] [place], [place] [id number]. Shahbaz Rogel EO # 0.1 103/ul Normal 0.0-0.7 [facility] Comment on above: Performed By: #### C BC ####[facility] Qxpovqutlv2[address] [place], [place] [address]Dr. Shahbaz Rogel Eosinophils/100 WBC (Bld) 3.4 % Normal 0.9-7.0 [facility] Comment on above: Performed By: #### C BC ####[facility] Jdyxcuuwmn2876[address] [place], [place] [address]Dr. Shahbaz Rogel Erythrocyte distribution width (RBC) [Ratio] 13.3 % Normal 11.0-15.0 [facility] Comment on above: Performed By: #### C BC ####[facility] Jijxzbbgev08[address] [place], [place] [address]Dr. Shahbaz Rogel Hematocrit (Bld) [Volume fraction] 42.1 % Normal 36.0-48.0 [facility] Comment on above: Performed By: #### C BC ####[facility] Ymzlfyoxhs99[address] [place], [place] [address]Dr. Shahbaz Rogel Hemoglobin (Bld) [Mass/Vol] 13.3 g/dL Normal 12.0-16.0 [facility] Comment on above: Performed By: #### C BC ####[facility] Argnycszqc90[address] [place], [place] [address]Dr. Shahbaz Rogel IG # 0.01 10e3/ul Normal 0.00-0.03 [facility] Comment on above: Performed By: #### C BC ####[facility] Xgvexdrqbh7[address] [place], [place] [address]Dr. Shahbaz Rogel IG % 0.3 % Normal 0.0-0.5 [facility] Comment on above: Performed By: #### C BC ####[facility] Zphvpgyvtn[address] [place], [place] [address]Dr. Shahbaz Rogel LYMPH # 1.0 103/ul Critically low 1.2-3.8 [facility] Comment on above: Performed By: #### C BC ####[facility] Lvsdrpvyws[address] [place] [address]Dr. Shahbaz Rogel Lymphocytes/100 WBC (Bld) 35.6 % Normal 20.5-60.0 [facility] Comment on above: Performed By: #### C BC ####[facility] Qlwqtcnbqm1123 [place] [address]DrChen Rogel MANUAL DIFF REQ NO Normal [facility] Comment on above: Performed By: #### C BC ####[facility] Ruhktyolbz15[address] [place] [address]Dr. Shahbaz Rogel MCH (RBC) [Entitic mass] 27.9 pg Normal 26.7-34.0 [facility] Comment on above: Performed By: #### C BC ####[facility] Mufukdagjy[address] [place], [place] [address]Dr. Shahbaz Rogel MCHC (RBC) [Mass/Vol] 31.6 g/dL Normal 29.9-35.2 [facility] Comment on above: Performed By: #### C BC ####[facility] Uuyvvnucnf[address] [place], [place] [address]DrChen Rogel MCV (RBC) [Entitic vol] 88.3 fL Normal 81.0-99.0 [facility] Comment on above: Performed By: #### C BC ####[facility] Ikieyxwwvq13[address] [place], [place] [address]DrChen Rogel MONO # 0.2 103/ul Critically low 0.3-0.8 [facility] Comment on above: Performed By: #### C BC ####[facility] Mophbumkfh[address] [place], [place] [address]DrChen Rogel Monocytes/100 WBC (Bld) 7.9 % Normal 1.7-12.0 [facility] Comment on above: Performed By: #### C BC ####[facility] Wewfbresiw8439[address] [place], [place] [address]DrChen Rogel NEUT # 1.5 103/ul Normal 1.4-6.5 [facility] Comment on above: Performed By: #### C BC ####[facility] Bacgrlfsve[address] [place] [address]DrChen Shahbaz Rogel Neutrophils/100 WBC (Bld) 52.1 % Normal 43.0-75.0 [facility] Comment on above: Performed By: #### C BC ####[facility] Ctvgtzfsfk0530 [place] [address]DrChen Shahbaz Rogel Platelet mean volume (Bld) [Entitic vol] 9.5 fL Normal 9.5-13.5 [facility] Comment on above: Performed By: #### C BC ####[facility] Lygpkxyeod334[address] [place], [place] [address]Dr. Shahbaz Rogel PLT 172 103/ul Normal 150-450 [facility] Comment on above: Performed By: #### C BC ####[facility] Fxoucmwrjb9240[address] [place], [place] [address]Dr. Shahbaz Rogel RBC 4.77 106/ul Normal 4.20-5.40 [facility] Comment on above: Performed By: #### C BC ####[facility] Zjnkdtczxt3[address] [place], [place] [address]DrChen Shahbaz Rogel WBC 2.9 103/ul Critically low 4.0-11.0 [facility] Comment on above: Performed By: #### C BC ####[facility] Z[address]yzpemmyx24[address] [place], [place] [address]DrChen Shahbaz Juan F CELL COUNT BODY FLUIDon 10-0 BASOS Normal [facility] Comment on above: Performed By: #### B FCC ####[facility] Iyoepldobs27[address] [place], [place] [address]Dr. Shahbaz Rogel Eosinophils/100 WBC (Bld) 4 % Normal [facility] Comment on above: Performed By: #### B FCC ####[facility] Jaiabdnnkc6[address] [place], [place] [address]Dr. Shahbaz Rogel Lymphocytes/100 WBC (Bld) 12 % Normal [facility] Comment on above: Performed By: #### B FCC ####[facility] Kebhbvamif63[address] [place] [id number]. Shahbaz Rogel Monocytes/100 WBC (Bld) 4 % Normal [facility] Comment on above: Performed By: #### B FCC ####[facility] Sceafrifoy2402 [place] [id number]. Shahbaz Rogel RBC 67 cubic mm Normal [facility] Comment on above: Performed By: #### B FCC ####[facility] Ocdggqfxqc[address] [place], [place] [id number]. Shahbaz Rogel SEGS 80 % Normal [facility] Comment on above: Performed By: #### B FCC ####[facility] Ftgdeqwhmy[address] [place], [place] [address]Dr. Shahbaz Rogel WBC BODY FLUID 223 cubic mm Normal [facility] Comment on above: Performed By: #### B FCC ####[facility] Odpxiaubpd85[address] [place], [place] [address]Dr. Shahbaz Rogel CULTURE OTHERon 07-04-2022 CULTURE OTHER Culture Observations : NO GROWTH AT 48 HOURS. Normal [facility] Comment on above: Performed By: #### O THCX ####[facility] Wgfgolrrgn8[address] [place], [place] [address]Dr. Shahbaz Rogel CYTOLOGYon 07-04-2022 SENT TO REF LAB 07/04/22 Normal [facility] Comment on above: Performed By: #### C YTO ####[facility] Ofwlsojdww60[address] [place], [place] [address]Dr. Shahbaz Rogel Covid-19 PCR (CVDTB)on SARS-CoV-2 (COVID-19) RNA PAVAN+probe Ql (Unsp spec) Not detected Normal NOT DETECTED [facility] Comment on above: Result Comment: When diagnostic [...] for this test is supported by the [employer] of Health and Human Service's declaration that [...] be used). Performed By: #### C VDTBH ####[facility] Ncectwomnc[address] [place], [place] [address]Dr. Shahbaz Rogel GRAM STAINon 07-04-2022 COMMENTS NO ORGANISMS OBSERVED Normal [facility] Comment on above: Performed By: #### G STAIN ####[facility] Holvogjmnr18[address] [place], [place] [address]Dr. Shahbaz Rogel DIPHTHEROIDS Normal [facility] Comment on above: Performed By: #### G STAIN ####[facility] Eqriftcqlw[address] [place], [place] [address]Dr. Shahbaz Rogel EPITHELIALS Normal [facility] Comment on above: Performed By: #### G STAIN ####[facility] Dhewuyuopb[address] [place], [place] [address]Dr. Shahbaz Rogel FUNGAL ELEMENTS Normal [facility] Comment on above: Performed By: #### G STAIN ####[facility] Hbrahrnujr[address] [place], [place] [address]Dr. Shahbaz Rogel GRAM NEG BACILLI Normal [facility] Comment on above: Performed By: #### G STAIN ####[facility] Mprqfkmiqf[address] [place], [place] [address]Dr. Shahbaz Rogel GRAM NEG DIPPLOCOCCI Normal [facility] Comment on above: Performed By: #### G STAIN ####[facility] Uedfuftsfh[address] [place], [place] [address]Dr. Shahbaz Rogel GRAM POS BACILLI Normal [facility] Comment on above: Performed By: #### G STAIN ####[facility] Waplyleklr[address] [place], [place] [address]Dr. Shahbaz Rogel GRAM POSITIVE COCCI Normal [facility] Comment on above: Performed By: #### G STAIN ####[facility] Vxaoaotmda5669 [place] [address]Dr. Shahbaz Rogel GRAM STAIN SOURCE Rt Lower Lobe Bronch ial Washing Normal [facility] Comment on above: Performed By: #### G STAIN ####[facility] Apoweoolob[address] [place] [id number]. Shahbaz Rogel GS_DIPTH Normal [facility] Comment on above: Performed By: #### G STAIN ####[facility] Xjiqronstr0562 [place] [phone]. Shahbaz Rogel WBC RARE Normal [facility] Comment on above: Performed By: #### G STAIN ####[facility] Gknypfgwox4[address] [place] [address]Dr. Shahbaz Rogel PROF 14(COMP METB)on 022 Albumin [Mass/Vol] 3.6 g/dL Normal 3.4-5.0 [facility] Comment on above: Performed By: #### C CINDY PAZ ####[facility] Jfzqopjmab16[address] [place] [address]Dr. Shahbaz Rogel Albumin/Globulin [Mass ratio] 1.1 {ratio} Normal [facility] Comment on above: Performed By: #### C CINDY PAZ ####[facility] Almrltiljp4[address] [place] [address]Dr. Shahbaz Rogel ALP [Catalytic activity/Vol] 102 U/L Normal 46-116 [facility] Comment on above: Performed By: #### C JACKSON, CMAROXANNA ####[facility] Tmgyyxfpat7235 [place] [phone]. Shahbaz Rogel ALT [Catalytic activity/Vol] 19 U/L Normal 14-59 [facility] Comment on above: Performed By: #### C JACKSON, CMADM ####[facility] Rqwgdbjrys5156 [place] [address]Dr. Shahbaz Rogel Anion gap [Moles/Vol] 9.5 mmol/L Normal [facility] Comment on above: Performed By: #### C JACKSON, CMADM ####[facility] Omtggfvkqn5314 [place] [phone]. Shahbaz Rogel AST [Catalytic activity/Vol] 19 U/L Normal 15-37 [facility] Comment on above: Performed By: #### C MP, CMADM ####[facility] Fjfhomvtru5535 [place] [phone]. Shahbaz Rogel Bilirubin [Mass/Vol] 0.3 mg/dL Normal 0.2-1.0 [facility] Comment on above: Performed By: #### C JACKSON, CMADM ####[facility] Gctlklufed2480 [place] [address]Dr. Shahbaz Rogel Calcium [Mass/Vol] 8.8 mg/dL Normal 8.5-10.1 [facility] Comment on above: Performed By: #### C JACKSON, CMADM ####[facility] Cljmpsottg[address] [place], [place] [address]Dr. Shahbaz Rogel Chloride [Moles/Vol] 107 mmol/L Normal 98-107 [facility] Comment on above: Performed By: #### C JACKSON, CMADM ####[facility] Tkysvauziy4078 [place] [address]Dr. Shahbaz Rogel CO2 [Moles/Vol] 29.5 mmol/L Normal 21.0-32.0 [facility] Comment on above: Performed By: #### C JACKSON, CMADM ####[facility] Vieipdrdos6668 [place] [address]Dr. Shahbaz Rogel Creatinine [Mass/Vol] 0.97 mg/dL Normal 0.55-1.02 [facility] Comment on above: Performed By: #### C JACKSON, CMADM ####[facility] Xezxbhrpow9806 [place] [phone]. Shahbaz Rogel EGFR-AF [place] >60 Normal >=60 [facility] Comment on above: Performed By: #### C JACKSON, CMADM ####[facility] Mueaqwtgts4553 [place] [address]Dr. Shahbaz Rogel EGFR-NON AF [place] 59 mL/min/1.73m2 Critically low >=60 [facility] Comment on above: Performed By: #### C JACKSON, CMADM ####[facility] Gykzefhmcb1875 [place] [address]Dr. Shahbaz Rogel Globulin (S) [Mass/Vol] 3.2 g/dL Normal [facility] Comment on above: Performed By: #### C JACKSON, CMADM ####[facility] Nmargvzapv6708 [place] [address]Dr. Shahbaz Rogel Glucose [Mass/Vol] 89 mg/dL Normal 74-106 [facility] Comment on above: Performed By: #### C JACKSON, CMADM ####[facility] Cgwbfwlahk2884 [place] [address]Dr. Shahbaz Rogel Potassium [Moles/Vol] 4.0 mmol/L Normal 3.5-5.1 [facility] Comment on above: Performed By: #### C JACKSON, CMADM ####[facility] Berhovoluj[address] [place], [place] [address]Dr. Shahbaz Rogel Protein [Mass/Vol] 6.8 g/dL Normal 6.4-8.2 [facility] Comment on above: Performed By: #### C JACKSON, CMADM ####[facility] Nxcmxrvmaq564[address] [place], [place] [address]Dr. Shahbaz Rogel Sodium [Moles/Vol] 142 mmol/L Normal 136-145 [facility] Comment on above: Performed By: #### C JACKSON, CMADM ####[facility] Dncermaxls[address] [place], [place] [address]Dr. Shahbaz Rogel Urea nitrogen [Mass/Vol] 11.0 mg/dL Normal 7.0-18.0 [facility] Comment on above: Performed By: #### C JACKSON, CMADM ####[facility] Qpevpydsav826[address] [place], [place] [address]Dr. Shahbaz Rogel Urea nitrogen/Creatinine [Mass ratio] 11.3 mg/mg Normal [facility] Comment on above: Performed By: #### C JACKSON, CMADM ####[facility] Udmwoeztne1740[address] [place], [place] [address]Dr. Shahbaz Juan F T4on 07-04-2022 T4 [Mass/Vol] 4.70 ug/dL Critically low 4.80-13.90 [facility] Comment on above: Performed By: #### T SH, T4 ####[facility] Mpawseclba4045 [place] [phone]. Shahbaz Rogel TSHon 07-04-2022 TSH 0.359 uIU/mL Normal 0.358-3.74 0 [facility] Comment on above: Performed By: #### T SH, T4 ####[facility] Dmqofhyohx[address] [place], [place] [id number]. Shahbaz Rogel XR CHEST 1 Von 07-04-2022 XR CHEST 1 V Normal [facility] XR CHEST 1 V Normal [facility] CHLAMYDIA PNEUMONIAE IgG IgM IgAon 06-27-2022 Chlamydia pneumoniae IgA <1:16 Normal Neg:<1:16 [facility] Comment on above: Performed By: #### C HLMPNE ####[facility] Fnxjekhzly88[address] [place], [place] [address]Dr. Shahbaz Rogel Chlamydia pneumoniae IgG <1:16 Normal Neg:<1:16 [facility] Comment on above: Performed By: #### C HLMPNE ####[facility] Ndixsgjhfg7388[address] [place], [place] [address]Dr. Shahbaz Rogel Chlamydia pneumoniae IgM <1:10 Normal Neg:<1:10 [facility] Comment on above: Performed By: #### C HLMPNE ####[facility] Lelbjvuhtl99[address] [place], [place] [address]Dr. Shahbaz Rogel Test Information: Comment Normal [facility] Comment on above: Result Comment: This test [...] or procedure. Performed By: #### C HLMPNE ####[facility] Qvmnpitrhv7950[address] [place], [place] [address]Dr. Shahbaz Rogel Covid-19 PCR (CVDTB)on 06-03 SARS-CoV-2 (COVID-19) RNA PAVAN+probe Ql (Unsp spec) Not detected Normal NOT DETECTED [facility] Comment on above: Result Comment: This test is not yet approved or cleared by the [place] FDA. When there are no FDA-approved or cleared tests available, and other criteria are met, FDA can make tests available under an emergency access mechanism called an Emergency Use Authorization (EUA). The EUA for this test is supported by the [place] of Health and Human Service's (HHS's) declaration [...] with SARS-CoV-2. Performed By: #### C VDTBH ####[facility] Vaauebfphv85[address] [place], [place] [address]Dr. Shahbaz Rogel CYCLIC CITRULLINATED PEPTIDE AB (CCP)on 06-25-2022 CCP Antibodies IgG/IgA 13 units Normal 0-19 [facility] Comment on above: Result Comment: Nega tive <20 Weak positive 20 - 39 Moderate positive 40 - 59 Strong positive >59 Performed By: #### C CPAB ####[facility] Ieirqrrrts5964 [place] [address]Dr. Shahbaz Rogel ANTI NEUTROPHIL CYTOPLASMIC AB (ANCA) PRon 06-24-2022 Anti-MPO Antibodies <0.2 Normal 0.0-0.9 [facility] Comment on above: Result Comment: Perf ormed at: BN Performed By: #### A NCAP ####[facility] Hguthidhgp4457 [place] [address]Dr. Shahbaz Rogel Anti-PR3 Antibodies 5.0 units Critically high 0.0-0.9 [facility] Comment on above: Result Comment: Perf ormed at: BN Performed By: #### A NCAP ####[facility] Tvztcxbsuz7090 [place] [address]Dr. Lilajarrod Juan F Atypical pANCA <1:20 Normal Neg:<1:20 [facility] Comment on above: Result Comment: The atypical pANCA pattern has been observed in a significantpercentage of patients with ulcerative colitis, primary sclerosingcholangitis and autoimmune hepatitis.Performed at: CB Performed By: #### A NCAP ####[facility] Gmsxlgjsab2070 [place] [address]Dr. Shahbaz Rogel Cytoplasmic (C-ANCA) <1:20 Normal Neg:<1:20 [facility] Comment on above: Result Comment: Perf ormed at: CB Performed By: #### A NCAP ####[facility] Yyahuokmek8153 [place] [address]Dr. Shahbaz Rogel Perinuclear (P-ANCA) 1:80 Critically high Neg:<1:20 [facility] Comment on above: Result Comment: The presence of positive fluorescence exhibiting P-ANCA or C-ANCApatterns alone is not specific for the diagnosis of Ada'sGranulomatosis (WG) or microscopic polyangiitis. Decisions abouttreatment should not be based solely on ANCA IFA results. TheInternational ANCA Group Consensus recommends follow up testing ofpositive sera with both HI-3 and MPO-ANCA enzyme immunoassays. Asmany as 5% serum samples are positive only by EIA.Ref. AM J Clin Pathol 1999;111:507-513.Performed at: CB Performed By: #### A NCAP ####[facility] Tatmnesbiw2422 [place] [address]Dr. Shahbaz Rogel ANTIGLOMERULAR BASEMENT MEMB ANTOINE ABSon 06-24-2022 Anti-GBM Antibodies <0.2 Normal 0.0-0.9 [facility] Comment on above: Performed By: #### A GBM ####[facility] Icznnzrxkk3779 [place] [address]Dr. Shahbaz Rogel SHAHANA EIA W/REFLEX 5 BIOMARKER Son 06-23-2022 SHAHANA Direct Negative Normal Negative [facility] Comment on above: Performed By: #### A NARF ####[facility] Tozhtbwwkq1444 [place] [address]Dr. Shahbaz Rogel ANTISCLERODERMA ABon 022 Antiscleroderma-70 Antibodies <0.2 Normal 0.0-0.9 [facility] Comment on above: Performed By: #### A NSCLER ####[facility] Rcxcxcaibm[address] [place], [place] [address]Dr. Shahbaz Rogel RHEUMATOID FACTORon 06-23-20 RA Latex Turbid. <10.0 Normal <14.0 [facility] Comment on above: Performed By: #### R F ####[facility] Xbrzidiziq95[address] [place], [place] [address]Dr. Shahbaz Rogel CBC AUTO DIFFon 06-22-2022 BASO # 0.0 103/ul Normal 0.0-0.1 [facility] Comment on above: Performed By: #### C BC ####[facility] Qiqfpoaean12[address] [place], [place] [address]Dr. Shahbaz Rogel Basophils/100 WBC (Bld) 0.5 % Normal 0.2-2.0 [facility] Comment on above: Performed By: #### C BC ####[facility] Wrsjdgaawy8[address] [place], [place] [address]DrChen Rogel EO # 0.1 103/ul Normal 0.0-0.7 [facility] Comment on above: Performed By: #### C BC ####[facility] Mrlwadcgsn7906[address] [place], [place] [address]Dr. Shahbaz Rogel Eosinophils/100 WBC (Bld) 3.4 % Normal 0.9-7.0 [facility] Comment on above: Performed By: #### C BC ####[facility] Xjgrruwkao0933[address] [place], [place] [address]Dr. Shahbaz Rogel Erythrocyte distribution width (RBC) [Ratio] 13.2 % Normal 11.0-15.0 [facility] Comment on above: Performed By: #### C BC ####[facility] Yulroaydcg1444[address] [place], [place] [address]DrChen Rogel Hematocrit (Bld) [Volume fraction] 45.6 % Normal 36.0-48.0 [facility] Comment on above: Performed By: #### C BC ####[facility] Ybsjsackjb9586 [place] [address]Dr. Shahbaz Rogel Hemoglobin (Bld) [Mass/Vol] 14.7 g/dL Normal 12.0-16.0 [facility] Comment on above: Performed By: #### C BC ####[facility] Cyxlfpqsqa2857[address] [place], [place] [address]DrChen Rogel IG # 0.01 10e3/ul Normal 0.00-0.03 [facility] Comment on above: Performed By: #### C BC ####[facility] Oojlhfodob65[address] [place], [place] [address]DrChen Rogel IG % 0.3 % Normal 0.0-0.5 [facility] Comment on above: Performed By: #### C BC ####[facility] Kjoiiejyob97[address] [place], [place] [address]DrChen Rogel LYMPH # 1.0 103/ul Critically low 1.2-3.8 [facility] Comment on above: Performed By: #### C BC ####[facility] Rgjggcabfg45[address] [place], [place] [address]DrChen Lilajarrod Rogel Lymphocytes/100 WBC (Bld) 25.7 % Normal 20.5-60.0 [facility] Comment on above: Performed By: #### C BC ####[facility] Aljgnjwrts4860[address] [place], [place] [address]DrChen Rogel MANUAL DIFF REQ NO Normal [facility] Comment on above: Performed By: #### C BC ####[facility] Rgosrpxtnz[address] [place], [place] [address]DrChen Rogel MCH (RBC) [Entitic mass] 28.1 pg Normal 26.7-34.0 [facility] Comment on above: Performed By: #### C BC ####[facility] Uhlwepjcba5080[address] [place], [place] [address]DrChen Rogel MCHC (RBC) [Mass/Vol] 32.2 g/dL Normal 29.9-35.2 [facility] Comment on above: Performed By: #### C BC ####[facility] Eobkvtuchd9993[address] [place], [place] [address]DrChen oRgel MCV (RBC) [Entitic vol] 87.2 fL Normal 81.0-99.0 [facility] Comment on above: Performed By: #### C BC ####[facility] Zajeqcxmlh8856[address] [place], [place] [address]DrChen Rogel MONO # 0.2 103/ul Critically low 0.3-0.8 [facility] Comment on above: Performed By: #### C BC ####[facility] Iuwwngcoer6944[address] [place], [place] [address]DrChen Rogel Monocytes/100 WBC (Bld) 6.0 % Normal 1.7-12.0 [facility] Comment on above: Performed By: #### C BC ####[facility] Chmhcmgfqq3907[address] [place], [place] [address]DrChen Rogel NEUT # 2.5 103/ul Normal 1.4-6.5 [facility] Comment on above: Performed By: #### C BC ####[facility] Wxrbuejuzt5970[address] [place], [place] [address]DrChen Rogel Neutrophils/100 WBC (Bld) 64.1 % Normal 43.0-75.0 [facility] Comment on above: Performed By: #### C BC ####[facility] Vfrrrhnvyp[address] [place], [place] [address]DrChen Rogel Platelet mean volume (Bld) [Entitic vol] 9.4 fL Critically low 9.5-13.5 [facility] Comment on above: Performed By: #### C BC ####[facility] Nfiybqzyyf38[address] [place], [place] [address]DrChen Rogel PLT 212 103/ul Normal 150-450 [facility] Comment on above: Performed By: #### C BC ####[facility] Vcpykueken7539[address] [place], [place] [address]DrChen Rogel RBC 5.23 106/ul Normal 4.20-5.40 [facility] Comment on above: Performed By: #### C BC ####[facility] Esnmvknyrd4662 [place] [address]Dr. Shahbaz Rogel WBC 3.9 103/ul Critically low 4.0-11.0 [facility] Comment on above: Performed By: #### C BC ####[facility] Hlfhuledor7[address] [place], [place] [address]DrChen Rogel PROF 14(COMP METB)on 022 Albumin [Mass/Vol] 4.1 g/dL Normal 3.4-5.0 [facility] Comment on above: Performed By: #### C MP ####[facility] Ceogshlnof[address] [place], [place] [address]Dr. Shahbaz Rogel Albumin/Globulin [Mass ratio] 1.1 {ratio} Normal [facility] Comment on above: Performed By: #### C MP ####[facility] Exbgtjyact6237[address] [place], [place] [address]Dr. Shahbaz Rogel ALP [Catalytic activity/Vol] 133 U/L Critically high 46-116 [facility] Comment on above: Performed By: #### C MP ####[facility] Ouixyeucxo3273[address] [place], [place] [address]Dr. Shahbaz Rogel ALT [Catalytic activity/Vol] 29 U/L Normal 14-59 [facility] Comment on above: Performed By: #### C MP ####[facility] Obxmdazwng828[address] [place], [place] [address]Dr. Shahbaz Rogel Anion gap [Moles/Vol] 10.9 mmol/L Normal [facility] Comment on above: Performed By: #### C MP ####[facility] Qklzgzksaf946[address] [place], [place] [address]Dr. Shahbaz Rogel AST [Catalytic activity/Vol] 23 U/L Normal 15-37 [facility] Comment on above: Performed By: #### C MP ####[facility] Qkwcyfcylv3379[address] [place], [place] [address]Dr. Shahbaz Rogel Bilirubin [Mass/Vol] 0.3 mg/dL Normal 0.2-1.0 [facility] Comment on above: Performed By: #### C MP ####[facility] Kjzlebuuos9632 [place] [address]Dr. Shahbaz Juan F Calcium [Mass/Vol] 9.1 mg/dL Normal 8.5-10.1 [facility] Comment on above: Performed By: #### C MP ####[facility] Obdzrldpio3114 [place] [address]Dr. Shahbaz Juan F Chloride [Moles/Vol] 103 mmol/L Normal 98-107 [facility] Comment on above: Performed By: #### C MP ####[facility] Xmryjdxtit4420[address] [place], [place] [address]Dr. Shahbaz Juan F CO2 [Moles/Vol] 30.8 mmol/L Normal 21.0-32.0 [facility] Comment on above: Performed By: #### C MP ####[facility] Wwavwegddn[address] [place], [place] [address]Dr. Shahbaz Juan F Creatinine [Mass/Vol] 1.02 mg/dL Normal 0.55-1.02 [facility] Comment on above: Performed By: #### C MP ####[facility] Uspcutglzy8889[address] [place], [place] [address]Dr. Shahbaz Juan F EGFR-AF [place] >60 Normal >=60 [facility] Comment on above: Performed By: #### C MP ####[facility] Ifvnshcyed8069[address] [place], [place] [address]Dr. Shahbaz Rogel EGFR-NON AF [place] 56 mL/min/1.73m2 Critically low >=60 [facility] Comment on above: Performed By: #### C MP ####[facility] Uykxozyool6546[address] [place], [place] [address]Dr. Shahbaz Rogel Globulin (S) [Mass/Vol] 3.7 g/dL Normal [facility] Comment on above: Performed By: #### C MP ####[facility] Uvneyqmftc23[address] [place], [place] [address]Dr. Shahbaz Rogel Glucose [Mass/Vol] 80 mg/dL Normal 74-106 [facility] Comment on above: Performed By: #### C MP ####[facility] Fpdxmejxxj0863 [place] [id number]. Shahbaz Rogel Potassium [Moles/Vol] 3.7 mmol/L Normal 3.5-5.1 [facility] Comment on above: Performed By: #### C MP ####[facility] Tflkxynhre3652 [place] [id number]. Shahbaz Rogel Protein [Mass/Vol] 7.8 g/dL Normal 6.4-8.2 [facility] Comment on above: Performed By: #### C MP ####[facility] Fukhjtgzem2610 [place] [address]Dr. Shahbaz Rogel Sodium [Moles/Vol] 141 mmol/L Normal 136-145 [facility] Comment on above: Performed By: #### C MP ####[facility] Oigwgayyzg5074 [place] [address]Dr. Shahbaz Juan F Urea nitrogen [Mass/Vol] 10.0 mg/dL Normal 7.0-18.0 [facility] Comment on above: Performed By: #### C MP ####[facility] Ylwkkozmxw2230 [place] [address]Dr. Shahbaz Rogel Urea nitrogen/Creatinine [Mass ratio] 9.8 mg/mg Normal [facility] Comment on above: Performed By: #### C MP ####[facility] Nqlqnbegvn4115 [place] [address]Dr. Shahbaz Juan F SED RATE [facility] 2021 SED RATE 17 mm/hr Normal <=30 [facility] Comment on above: Performed By: #### S EDR ####[facility] Xujiesuhxc9147[address] [place], [place] [address]Dr. Shahbaz Juan F CT CHEST HI RESOLUTIONon CT CHEST HI RESOLUTION Normal [facility] XR ANKLE RT MIN 3 VIEWSon XR ANKLE RT MIN 3 VIEWS Normal [facility] CT CHEST WO CONon 03-03-2022 CT CHEST WO CON Normal [facility] CT CSPINE WO CONon 06-02-[address] CSPINE WO CON Normal [facility] XR CHEST 2 Von 03-03-2022 XR CHEST 2 V Normal [facility] XR STERNUM MIN 2 VIEWSon XR STERNUM MIN 2 VIEWS Normal Th [facility] CT HEAD WO CONon 03-02-2022 CT HEAD WO CON Normal [facility] CBC AUTO DIFFon 01-21-2022 BASO # 0.0 103/ul Normal 0.0-0.1 [facility] Comment on above: Performed By: #### C BC ####[facility] Wnikhmvdgh6718 [place] [address]Dr. Shahbaz Rogel Basophils/100 WBC (Bld) 0.0 % Critically low 0.2-2.0 [facility] Comment on above: Performed By: #### C BC ####[facility] Fnhmvbdivg7672 [place] [address]Dr. Shahbaz Rogel EO # 0.0 103/ul Normal 0.0-0.7 [facility] Comment on above: Performed By: #### C BC ####[facility] Dravuslelu7432 [place] [address]Dr. Shahbaz Rogel Eosinophils/100 WBC (Bld) 0.0 % Critically low 0.9-7.0 [facility] Comment on above: Performed By: #### C BC ####[facility] Aoehogyoov44[address] [place], [place] [address]Dr. Shahbaz Rogel Erythrocyte distribution width (RBC) [Ratio] 14.2 % Normal 11.0-15.0 [facility] Comment on above: Performed By: #### C BC ####[facility] Vubivxxaty5416[address] [place], [place] [address]Dr. Shahbaz Rogel Hematocrit (Bld) [Volume fraction] 38.9 % Normal 36.0-48.0 [facility] Comment on above: Performed By: #### C BC ####[facility] Myizvsuxmg5379[address] [place], [place] [address]Dr. Shahbaz Rogel Hemoglobin (Bld) [Mass/Vol] 11.8 g/dL Critically low 12.0-16.0 [facility] Comment on above: Performed By: #### C BC ####[facility] Zgfmlnfgak5270 [place] [id number]. Shahbaz Rogel IG # 0.03 10e3/ul Normal 0.00-0.03 [facility] Comment on above: Performed By: #### C BC ####[facility] Tfdpknesxm8438 [place] [id number]. Shahbaz Rogel IG % 0.4 % Normal 0.0-0.5 [facility] Comment on above: Performed By: #### C BC ####[facility] Swsqgfzacd2533 [place] [address]Dr. Shahbaz Juan F LYMPH # 0.8 103/ul Critically low 1.2-3.8 [facility] Comment on above: Performed By: #### C BC ####[facility] Zfvbtkjpqc4184 [place] [address]DrChen Rogel Lymphocytes/100 WBC (Bld) 10.3 % Critically low 20.5-60.0 [facility] Comment on above: Performed By: #### C BC ####[facility] Ymqgwchhdd8919 [place] [address]DrChen Shahbaz Rogel MANUAL DIFF REQ NO Normal [facility] Comment on above: Performed By: #### C BC ####[facility] Ajxaqfvqfc2837 [place] [address]Dr. Shahbaz Juan F MCH (RBC) [Entitic mass] 27.1 pg Normal 26.7-34.0 [facility] Comment on above: Performed By: #### C BC ####[facility] G[address]cvvjdbtv[address] [place], [place] [address]Dr. Shahbaz Rogel MCHC (RBC) [Mass/Vol] 30.3 g/dL Normal 29.9-35.2 [facility] Comment on above: Performed By: #### C BC ####[facility] Nqubishnbw3165 [place] [address]Dr. Shahbaz Juan F MCV (RBC) [Entitic vol] 89.2 fL Normal 81.0-99.0 [facility] Comment on above: Performed By: #### C BC ####[facility] Oshdzthbzo0172 [place] [id number]. Shahbaz Rogel MONO # 0.4 103/ul Normal 0.3-0.8 [facility] Comment on above: Performed By: #### C BC ####[facility] Qebefblkgk4138 [place] [id number]. Shahbaz Rogel Monocytes/100 WBC (Bld) 4.7 % Normal 1.7-12.0 [facility] Comment on above: Performed By: #### C BC ####[facility] Snpniqipsx40[address] [place], [place] [address]Dr. Shahbaz Rogel NEUT # 6.6 103/ul Critically high 1.4-6.5 [facility] Comment on above: Performed By: #### C BC ####[facility] Puqxzvfwtn[address] [place], [place] [address]Dr. Shahbaz Rogel Neutrophils/100 WBC (Bld) 84.6 % Critically high 43.0-75.0 [facility] Comment on above: Performed By: #### C BC ####[facility] Gmiepldrcf16[address] [place], [place] [address]Dr. Shahbaz Rogel Platelet mean volume (Bld) [Entitic vol] 10.0 fL Normal 9.5-13.5 [facility] Comment on above: Performed By: #### C BC ####[facility] Zfmivygxin766[address] [place], [place] [address]Dr. Shahbaz Rogel PLT 165 103/ul Normal 150-450 [facility] Comment on above: Performed By: #### C BC ####[facility] Fivuzpztwp25[address] [place], [place] [address]Dr. Shahbaz Rogel RBC 4.36 106/ul Normal 4.20-5.40 [facility] Comment on above: Performed By: #### C BC ####[facility] Wakjvcdulv[address] [place], [place] [address]Dr. Shahbaz Rogel WBC 7.8 103/ul Normal 4.0-11.0 [facility] Comment on above: Performed By: #### C BC ####[facility] Eoyyccwllm2443 [place] [address]Dr. Shahbaz Rogel ER URINE PROFILEon 2 Bilirubin Ql (U) Negative Normal NEGATIVE [facility] Comment on above: Performed By: #### E RUR ####[facility] Vbgdinlzhw[address] [place], [place] [address]Dr. Shahbaz Rogel Clarity (U) CLEAR Normal CLEAR [facility] Comment on above: Performed By: #### E RUR ####[facility] Liignqsbyt[address] [place], [place] [address]Dr. Shahbaz Rogel Color (U) LT. YELLOW Normal YELLOW [facility] Comment on above: Performed By: #### E RUR ####[facility] Ppvlioygvm[address] [place], [place] [address]Dr. Shahbaz Juan F ERUAHD A micrscopic examina tion will be performed if indicated. Normal [facility] Comment on above: Performed By: #### E RUR ####[facility] Vvqukowvfx[address] [place], [place] [address]Dr. Shahbaz Rogel Glucose Ql (U) Negative Normal NEGATIVE [facility] Comment on above: Performed By: #### E RUR ####[facility] Iejhixikph[address] [place], [place] [address]Dr. Shahbaz Rogel Hemoglobin Ql (U) Negative Normal NEGATIVE [facility] Comment on above: Performed By: #### E RUR ####[facility] Etykkekawa[address] [place], [place] [address]Dr. Shahbaz Rogel Ketones Ql (U) Negative Normal NEGATIVE [facility] Comment on above: Performed By: #### E RUR ####[facility] Kszhpnhpau[address] [place], [place] [address]Dr. Lilalan Rogel LEUKOCYTES Negative Normal NEGATIVE [facility] Comment on above: Performed By: #### E RUR ####[facility] Ptounnunyk[address] [place], [place] [address]Dr. Lilalan Rogel Nitrite Ql (U) Negative Normal NEGATIVE [facility] Comment on above: Performed By: #### E RUR ####[facility] Zkvnvddnao[address] [place] [address]Dr. Shahbaz Rogel pH (U) 6.0 [pH] Normal 5-9 [facility] Comment on above: Performed By: #### E RUR ####[facility] Vtgjztmdyu[address] [place], [place] [address]Dr. Shahbaz Rogel SPEC GRAVITY 1.020 Normal 1.005-<=1. 025 [facility] Comment on above: Performed By: #### E RUR ####[facility] Jccbqgoxtm[address] [place], [place] [address]Dr. Shahbaz Rogel UA PROTEIN Negative Normal NEGATIVE/ TRACE [facility] Comment on above: Performed By: #### E RUR ####[facility] Wnvvecirii36[address] [place], [place] [address]Dr. Shahbaz Juan F UR MICRO IND NOT INDICATED Normal [facility] Comment on above: Performed By: #### E RUR ####[facility] Zujrkvpeis[address] [place], [place] [address]Dr. Shahbaz Rogel Urobilinogen Qn (U) 0.2 {Melida'U}/dL Normal 0.2 - 1. 0 [facility] Comment on above: Performed By: #### E RUR ####[facility] Nxfqrfdfiv64[address] [place], [place] [address]Dr. Shahbaz Rogel POINT OF CARE GLUCOSEon 01-01 Glucose [Mass/Vol] 151 mg/dL Critically high 74-106 [facility] Comment on above: Performed By: #### P OCGLUC ####[facility] Rtqrpjyaes[address] [place], [place] [address]Dr. Shahbaz Rogel Glucose [Mass/Vol] 248 mg/dL Critically high 74-106 [facility] Comment on above: Performed By: #### P OCGLUC ####[facility] Wkjvcprhbl[address] [place], [place] [address]Dr. Shahbaz Rogel PROF 14(COMP METB)on 022 Albumin [Mass/Vol] 2.8 g/dL Critically low 3.4-5.0 [facility] Comment on above: Performed By: #### C MP ####[facility] M[address]jmnpmvr[address] [place] [address]Dr. Shahbaz Rogel Albumin/Globulin [Mass ratio] 0.9 {ratio} Normal [facility] Comment on above: Performed By: #### C MP ####[facility] Etzsmseadb[address] [place] [address]Dr. Shahbaz Rogel ALP [Catalytic activity/Vol] 90 U/L Normal 46-116 [facility] Comment on above: Performed By: #### C MP ####[facility] Nxvutnudgk2[address] [place] [address]Dr. Shahbaz Rogel ALT [Catalytic activity/Vol] 20 U/L Normal 14-59 [facility] Comment on above: Performed By: #### C MP ####[facility] Tuohjpwyfj[address] [place] [address]Dr. Lilajarrod Juan F Anion gap [Moles/Vol] 8.9 mmol/L Normal [facility] Comment on above: Performed By: #### C MP ####[facility] Nqwzgbemzr26[address] [place], [place] [address]Dr. Shahbaz Juan F AST [Catalytic activity/Vol] 14 U/L Critically low 15-37 [facility] Comment on above: Performed By: #### C MP ####[facility] Jjlslaeqos[address] [place], [place] [address]Dr. Shahbaz Juan F Bilirubin [Mass/Vol] 0.1 mg/dL Critically low 0.2-1.3 [facility] Comment on above: Performed By: #### C MP ####[facility] Emtgzigxqf[address] [place] [address]Dr. Lilajarrod Juan F Calcium [Mass/Vol] 8.2 mg/dL Critically low 8.5-10.1 [facility] Comment on above: Performed By: #### C MP ####[facility] Fbsgcaqhnw9784[address] [place], [place] [address]Dr. Shahbaz Rogel Chloride [Moles/Vol] 110 mmol/L Critically high 98-107 [facility] Comment on above: Performed By: #### C MP ####[facility] Sceymhihym64[address] [place], [place] [id number]. Shahbaz Rogel CO2 [Moles/Vol] 28.0 mmol/L Normal 22.0-30.0 [facility] Comment on above: Performed By: #### C MP ####[facility] Mweldpthhw[address] [place], [place] [address]Dr. Shahbaz Rogel Creatinine [Mass/Vol] 0.78 mg/dL Normal 0.52-1.04 [facility] Comment on above: Performed By: #### C MP ####[facility] Grigfktxme30[address] [place], [place] [address]Dr. Shahbaz Rogel EGFR-AF [place] >60 Normal >=60 [facility] Comment on above: Performed By: #### C MP ####[facility] Wgsibviwun8894[address] [place], [place] [address]Dr. Shahbaz Rogel EGFR-NON AF [place] >60 Normal >=60 [facility] Comment on above: Performed By: #### C MP ####[facility] Wvtjcfpehm8733[address] [place], [place] [address]Dr. Shahbaz Rogel Globulin (S) [Mass/Vol] 3.1 g/dL Normal [facility] Comment on above: Performed By: #### C MP ####[facility] Adfhroghyx1068[address] [place], [place] [address]Dr. Shahbaz Rogel Glucose [Mass/Vol] 121 mg/dL Critically high 74-106 [facility] Comment on above: Performed By: #### C MP ####[facility] Phpdvfuiek6711[address] [place], [place] [address]Dr. Shahbaz Rogel Potassium [Moles/Vol] 3.9 mmol/L Normal 3.4-5.0 [facility] Comment on above: Performed By: #### C MP ####[facility] Krlbfnpbiw4317[address] [place], [place] [address]Dr. Shahbaz Rogel Protein [Mass/Vol] 5.9 g/dL Critically low 6.1-8.2 [facility] Comment on above: Performed By: #### C MP ####[facility] Peytjvmanc[address] [place], [place] [address]Dr. Shahbaz Rogel Sodium [Moles/Vol] 143 mmol/L Normal 137-145 [facility] Comment on above: Performed By: #### C MP ####[facility] Idcbkdtdgh25[address] [place] [address]Dr. Shahbaz Rogel Urea nitrogen [Mass/Vol] 26.0 mg/dL Critically high 7.0-18.0 [facility] Comment on above: Performed By: #### C MP ####[facility] Axotqvzjei6440[address] [place], [place] [address]Dr. Shahbaz Rogel Urea nitrogen/Creatinine [Mass ratio] 33.3 mg/mg Normal [facility] Comment on above: Performed By: #### C MP ####[facility] Romrhqghmt2296[address] [place], [place] [address]Dr. Shahbaz Rogel PAMXS-8-CYYIPEGNVPXuv 2021 Aekxp-4-Rocpwyqoggb, Serum 154 mg/dL Normal 101-187 [facility] Comment on above: Performed By: #### A LPHA-1 ####[facility] Pscomtaxyv036[address] [place], [place] [address]Dr. Shahbaz Rogel CBC AUTO DIFFon 01-20-2022 BASO # 0.0 103/ul Normal 0.0-0.1 [facility] Comment on above: Performed By: #### C BC ####[facility] Clnpyojpfa4406[address] [place], [place] [address]Dr. Shahbaz Rogel Basophils/100 WBC (Bld) 0.0 % Critically low 0.2-2.0 [facility] Comment on above: Performed By: #### C BC ####[facility] Pqqnqsuecb139[address] [place], [place] [address]Dr. Shahbaz Rogel EO # 0.0 103/ul Normal 0.0-0.7 [facility] Comment on above: Performed By: #### C BC ####[facility] Wiofgfktdj[address] [place] [address]Dr. Shahbaz Rogel Eosinophils/100 WBC (Bld) 0.0 % Critically low 0.9-7.0 [facility] Comment on above: Performed By: #### C BC ####[facility] Rtejarbnps4[address] [place], [place] [address]Dr. Shahbaz Rogel Erythrocyte distribution width (RBC) [Ratio] 13.7 % Normal 11.0-15.0 [facility] Comment on above: Performed By: #### C BC ####[facility] Seiibbllcs7425[address] [place], [place] [address]Dr. Shahbaz Rogel Hematocrit (Bld) [Volume fraction] 41.2 % Normal 36.0-48.0 [facility] Comment on above: Performed By: #### C BC ####[facility] Rfnlmkffeq384[address] [place], [place] [address]Dr. Shahbaz Rogel Hemoglobin (Bld) [Mass/Vol] 12.8 g/dL Normal 12.0-16.0 [facility] Comment on above: Performed By: #### C BC ####[facility] Ggjwxzqnug5046[address] [place], [place] [address]Dr. Shahbaz Rogel IG # 0.10 10e3/ul Critically high 0.00-0.03 [facility] Comment on above: Performed By: #### C BC ####[facility] Csybhgqsoy[address]39[address] [place], [place] [address]Dr. Shahbaz Rogel IG % 0.5 % Normal 0.0-0.5 [facility] Comment on above: Performed By: #### C BC ####[facility] Ivbeiwqlgn1270[address] [place], [place] [address]Dr. Shahbaz Rogel LYMPH # 0.7 103/ul Critically low 1.2-3.8 [facility] Comment on above: Performed By: #### C BC ####[facility] Qnxemoqsyh[address] [place], [place] [address]Dr. Shahbaz Rogel Lymphocytes/100 WBC (Bld) 6.2 % Critically low 20.5-60.0 [facility] Comment on above: Result Comment: dif. not rqd. same as 01/18/22 Performed By: #### C BC ####[facility] Iqryxmukpk[address] [place], [place] [address]Dr. Shahbaz Rogel MANUAL DIFF REQ NO Normal [facility] Comment on above: Performed By: #### C BC ####[facility] Ptdctxapqu[address] [place] [id number]. Shahbaz Rogel MCH (RBC) [Entitic mass] 27.2 pg Normal 26.7-34.0 [facility] Comment on above: Performed By: #### C BC ####[facility] Aepwqasouc[address] [place] [address]Dr. Shahbaz Rogel MCHC (RBC) [Mass/Vol] 31.1 g/dL Normal 29.9-35.2 [facility] Comment on above: Performed By: #### C BC ####[facility] Rxdashzfjj060[address] [place] [address]Dr. Shahbaz Juan F MCV (RBC) [Entitic vol] 87.5 fL Normal 81.0-99.0 [facility] Comment on above: Performed By: #### C BC ####[facility] Btreavxzmv8[address] [place], [place] [address]Dr. Lilajarrod Rogel MONO # 0.2 103/ul Critically low 0.3-0.8 [facility] Comment on above: Performed By: #### C BC ####[facility] Porhpmovwq[address] [place], [place] [address]Dr. Lilajarrod Rogel Monocytes/100 WBC (Bld) 1.7 % Normal 1.7-12.0 [facility] Comment on above: Performed By: #### C BC ####[facility] Wrpplegpli[address] [place], [place] [address]Dr. Shahbaz Juan F NEUT # 9.8 103/ul Critically high 1.4-6.5 [facility] Comment on above: Performed By: #### C BC ####[facility] Vf[address]uk[address] [place], [place] [address]DrChen Lilajarrod Rogel Neutrophils/100 WBC (Bld) 91.6 % Critically high 43.0-75.0 [facility] Comment on above: Performed By: #### C BC ####[facility] Oorjljdlsx7[address] [place], [place] [address]Dr. Lilajarrod Rogel Platelet mean volume (Bld) [Entitic vol] 10.0 fL Normal 9.5-13.5 [facility] Comment on above: Performed By: #### C BC ####[facility] Lizokcvuym2276 [place] [id number]. Shahbaz Rogel PLT 198 103/ul Normal 150-450 [facility] Comment on above: Performed By: #### C BC ####[facility] Jutxamdicm5590 [place] [id number]. Shahbaz Rogel RBC 4.71 106/ul Normal 4.20-5.40 [facility] Comment on above: Performed By: #### C BC ####[facility] Xvwizfnvwn9565 [place] [id number]. Shahbaz Rogel WBC 10.7 103/ul Normal 4.0-11.0 [facility] Comment on above: Performed By: #### C BC ####[facility] Acqtlqrutp[address] [place] [address]Dr. Shahbaz Rogel POINT OF CARE GLUCOSEon 01-01 Glucose [Mass/Vol] 157 mg/dL Critically high 74-106 [facility] Comment on above: Performed By: #### P OCGLUC ####[facility] Gpkgyhuejj3[address] [place] [address]Dr. Shahbaz Rogel Glucose [Mass/Vol] 225 mg/dL Critically high 74-106 [facility] Comment on above: Performed By: #### P OCGLUC ####[facility] Qpdocustek4036 [place] [address]Dr. Shahbaz Rogel Glucose [Mass/Vol] 185 mg/dL Critically high 74-106 [facility] Comment on above: Performed By: #### P OCGLUC ####[facility] Dqsgmihndm07[address] [place] [address]Dr. Shahbaz Rogel Glucose [Mass/Vol] 134 mg/dL Critically high -106 [facility] Comment on above: Performed By: #### P OCGLUC ####[facility] Agvamcwawi8[address] [place] [address]Dr. Shahbaz Rogel PROF 14(COMP METB)on 022 Albumin [Mass/Vol] 3.0 g/dL Critically low 3.4-5.0 [facility] Comment on above: Performed By: #### C MP ####[facility] Svxupdfvcf1193 [place] [address]Dr. Shahbaz Juan F Albumin/Globulin [Mass ratio] 0.9 {ratio} Normal [facility] Comment on above: Performed By: #### C MP ####[facility] Haysobsutj8274 [place] [address]Dr. Shahbaz Juan F ALP [Catalytic activity/Vol] 81 U/L Normal 46-116 [facility] Comment on above: Performed By: #### C MP ####[facility] Fwmxcojgcq57[address] [place], [place] [address]Dr. Lilajarrod Rogel ALT [Catalytic activity/Vol] 14 U/L Normal 14-59 [facility] Comment on above: Performed By: #### C MP ####[facility] Frksdzhgoc7[address] [place], [place] [address]Dr. Shahbaz Rogel Anion gap [Moles/Vol] 13.1 mmol/L Normal [facility] Comment on above: Performed By: #### C MP ####[facility] Diihwfgdsx24[address] [place], [place] [address]Dr. Shahbaz Juan F AST [Catalytic activity/Vol] 20 U/L Normal 15-37 [facility] Comment on above: Performed By: #### C MP ####[facility] Hhmkcsrson[address] [place], [place] [address]Dr. Shahbaz Rogel Bilirubin [Mass/Vol] 0.3 mg/dL Normal 0.2-1.3 [facility] Comment on above: Performed By: #### C MP ####[facility] Htupxodhrk[address] [place], [place] [address]Dr. Shahbaz Rogel Calcium [Mass/Vol] 8.5 mg/dL Normal 8.5-10.1 [facility] Comment on above: Performed By: #### C MP ####[facility] Nxgyvbmusn85[address] [place], [place] [address]Dr. Shahbaz Rogel Chloride [Moles/Vol] 107 mmol/L Normal 98-107 [facility] Comment on above: Performed By: #### C MP ####[facility] Kycohccnnz4327 [place] [id number]. Shahbaz Rogel CO2 [Moles/Vol] 24.0 mmol/L Normal 22.0-30.0 [facility] Comment on above: Performed By: #### C MP ####[facility] Oknrqcwrpb0892 [place] [id number]. Shahbaz Rogel Creatinine [Mass/Vol] 1.00 mg/dL Normal 0.52-1.04 [facility] Comment on above: Performed By: #### C MP ####[facility] Vslfviijgb7272 [place] [id number]. Shahbaz Rogel EGFR-AF [place] >60 Normal >=60 [facility] Comment on above: Performed By: #### C MP ####[facility] Lyiyzvgvor30[address] [place] [address]Dr. Shahbaz Juan F EGFR-NON AF [place] 57 mL/min/1.73m2 Critically low >=60 [facility] Comment on above: Performed By: #### C MP ####[facility] Tcpwqvfrwv6183 [place] [id number]. Shahbaz Rogel Globulin (S) [Mass/Vol] 3.4 g/dL Normal [facility] Comment on above: Performed By: #### C MP ####[facility] Bqcsmsvxys7823 [place] [id number]. Shahbaz Juan F Glucose [Mass/Vol] 153 mg/dL Critically high 74-106 T [facility] Comment on above: Performed By: #### C MP ####[facility] Vpmtvimhzg6084 [place] [phone]. Shahbaz Rogel Potassium [Moles/Vol] 4.1 mmol/L Normal 3.4-5.0 [facility] Comment on above: Performed By: #### C MP ####[facility] Qitihgzzww4384 [place] [phone]. Shahbaz Rogel Protein [Mass/Vol] 6.4 g/dL Normal 6.1-8.2 [facility] Comment on above: Performed By: #### C MP ####[facility] Oakhwyvquy[address] [place], [place] [address]Dr. Shahbaz Juan F Sodium [Moles/Vol] 140 mmol/L Normal 137-145 [facility] Comment on above: Performed By: #### C MP ####[facility] Aqnzjgrkym4980[address] [place], [place] [address]Dr. Lilajarrod Rogel Urea nitrogen [Mass/Vol] 26.0 mg/dL Critically high 7.0-18.0 [facility] Comment on above: Performed By: #### C MP ####[facility] Ntswnfjdfg6066[address] [place], [place] [address]Dr. Shahbaz Juan F Urea nitrogen/Creatinine [Mass ratio] 26.5 mg/mg Normal [facility] Comment on above: Performed By: #### C MP ####[facility] Ierpbsgqej3247[address] [place], [place] [address]Dr. Shahbaz Juan F BNPon 01-19-2022 Natriuretic peptide B (Bld) [Mass/Vol] 117.0 pg/mL Normal <=900.0 [facility] Comment on above: Performed By: #### B PAIN MANAGEMENT SPECIALIST, CMP ####[facility] Tfitkczojv2768[address] [place], [place] [address]Dr. Shahbaz Rogel CBC AUTO DIFFon 01-19-2022 BASO # 0.0 103/ul Normal 0.0-0.1 [facility] Comment on above: Performed By: #### C BC ####[facility] Znxecuxool[address]37[address] [place], [place] [address]Dr. Shahbaz Rogel Basophils/100 WBC (Bld) 0.0 % Critically low 0.2-2.0 [facility] Comment on above: Performed By: #### C BC ####[facility] Fuhlnqxwmz0664[address] [place], [place] [address]Dr. Shahbaz Rogel EO # 0.0 103/ul Normal 0.0-0.7 [facility] Comment on above: Performed By: #### C BC ####[facility] Baqxqzison1437[address] [place], [place] [address]Dr. Shahbaz Rogel Eosinophils/100 WBC (Bld) 0.0 % Critically low 0.9-7.0 [facility] Comment on above: Performed By: #### C BC ####[facility] Khttkwszzb4710[address] [place], [place] [address]Dr. Shahbaz Rogel Erythrocyte distribution width (RBC) [Ratio] 13.4 % Normal 11.0-15.0 [facility] Comment on above: Performed By: #### C BC ####[facility] Ywbyrsykzz7793[address] [place], [place] [address]Dr. Shahbaz Rogel Hematocrit (Bld) [Volume fraction] 46.3 % Normal 36.0-48.0 [facility] Comment on above: Performed By: #### C BC ####[facility] Sqehwzxvus[address]01[address] [place], [place] [address]DrChen Rogel Hemoglobin (Bld) [Mass/Vol] 14.3 g/dL Normal 12.0-16.0 [facility] Comment on above: Performed By: #### C BC ####[facility] Eagjhficzl[address] [place], [place] [address]Dr. Shahbaz Rogel IG # 0.00 10e3/ul Normal 0.00-0.03 [facility] Comment on above: Performed By: #### C BC ####[facility] Tloqqpuysu4168[address] [place], [place] [address]DrChen Rogel IG % 0.0 % Normal 0.0-0.5 [facility] Comment on above: Performed By: #### C BC ####[facility] Qbhdlqbiis[address] [place], [place] [address]DrChen Rogel LYMPH # 0.6 103/ul Critically low 1.2-3.8 [facility] Comment on above: Performed By: #### C BC ####[facility] Jqkcvinovl0917[address] [place], [place] [address]DrChen Rogel Lymphocytes/100 WBC (Bld) 14.2 % Critically low 20.5-60.0 [facility] Comment on above: Performed By: #### C BC ####[facility] Qcdoegkwew877[address] [place], [place] [address]DrChen Rogel MANUAL DIFF REQ NO Normal [facility] Comment on above: Performed By: #### C BC ####[facility] Bpodoofwjs4905 [place] [address]DrChen Rogel MCH (RBC) [Entitic mass] 27.7 pg Normal 26.7-34.0 [facility] Comment on above: Performed By: #### C BC ####[facility] Igqnezqdxa0088 [place] [address]DrChen Rogel MCHC (RBC) [Mass/Vol] 30.9 g/dL Normal 29.9-35.2 [facility] Comment on above: Performed By: #### C BC ####[facility] Ygisvfwrxb5589[address] [place], [place] [address]DrChen Rogel MCV (RBC) [Entitic vol] 89.6 fL Normal 81.0-99.0 [facility] Comment on above: Performed By: #### C BC ####[facility] Rlrxntqhoj9155[address] [place], [place] [address]DrChen Rogel MONO # 0.0 103/ul Critically low 0.3-0.8 [facility] Comment on above: Performed By: #### C BC ####[facility] Pnbihufuhb9[address] [place], [place] [address]DrChen Rogel Monocytes/100 WBC (Bld) 1.0 % Critically low 1.7-12.0 [facility] Comment on above: Performed By: #### C BC ####[facility] Axuyncjhjp6275[address] [place], [place] [address]DrChen Rogel NEUT # 3.5 103/ul Normal 1.4-6.5 [facility] Comment on above: Performed By: #### C BC ####[facility] Thxcbylhqo975[address] [place], [place] [address]DrChen Rogel Neutrophils/100 WBC (Bld) 84.8 % Critically high 43.0-75.0 [facility] Comment on above: Performed By: #### C BC ####[facility] Qywdqijawg8105[address] [place], [place] [address]DrChen Rogel Platelet mean volume (Bld) [Entitic vol] 9.8 fL Normal 9.5-13.5 [facility] Comment on above: Performed By: #### C BC ####[facility] Airaaorfoa17[address] [place] [address]Dr. Shahbaz Rogel PLT 185 103/ul Normal 150-450 [facility] Comment on above: Performed By: #### C BC ####[facility] Ptpjdxgzuc170[address] [place], [place] [address]Dr. Shahbaz Rogel RBC 5.17 106/ul Normal 4.20-5.40 [facility] Comment on above: Performed By: #### C BC ####[facility] Kiuusshpcw6237[address] [place], [place] [address]Dr. Shahbaz Rogel WBC 4.2 103/ul Normal 4.0-11.0 [facility] Comment on above: Performed By: #### C BC ####[facility] Ujtolmqenh5156[address] [place], [place] [address]Dr. Shahbaz Rogel LACTATE/LACTIC ACIDon 2021 Lactate [Moles/Vol] 1.7 mmol/L Normal 0.7-2.0 [facility] Comment on above: Performed By: #### L ACT ####[facility] Jdjxbkfffq1165[address] [place], [place] [address]Dr. Shahbaz Rogel POINT OF CARE GLUCOSEon 01-01 Glucose [Mass/Vol] 173 mg/dL Critically high 74-106 [facility] Comment on above: Performed By: #### P OCGLUC ####[facility] Yxcjhtswdi878[address] [place], [place] [address]Dr. Shahbaz Rogel Glucose [Mass/Vol] 181 mg/dL Critically high 74-106 [facility] Comment on above: Performed By: #### P OCGLUC ####[facility] Hnilmsigoo[address] [place], [place] [address]Dr. Shahbaz Rogel Glucose [Mass/Vol] 154 mg/dL Critically high 74-106 [facility] Comment on above: Performed By: #### P OCGLUC ####[facility] J[address]uvnrosez[address] [place], [place] [id number]. Shahbaz Rogel PROF 14(COMP METB)on 022 Albumin [Mass/Vol] 3.5 g/dL Normal 3.4-5.0 [facility] Comment on above: Performed By: #### B PAIN MANAGEMENT SPECIALIST, CMP ####[facility] Dzzcyxtlfo2770 [place] [address]Dr. Shahbaz Rogel Albumin/Globulin [Mass ratio] 0.9 {ratio} Normal [facility] Comment on above: Performed By: #### B PAIN MANAGEMENT SPECIALIST, CMP ####[facility] Tsyqiuoqjb9535 [place] [address]Dr. Shahbaz Rogel ALP [Catalytic activity/Vol] 107 U/L Normal 46-116 [facility] Comment on above: Performed By: #### B PAIN MANAGEMENT SPECIALIST, CMP ####[facility] Cekgvsnwgd4067 [place] [address]Dr. Shahbaz Rogel ALT [Catalytic activity/Vol] 18 U/L Normal 14-59 [facility] Comment on above: Performed By: #### B PAIN MANAGEMENT SPECIALIST, CMP ####[facility] Nugbbabeur0678 [place] [address]Dr. Shahbaz Rogel Anion gap [Moles/Vol] 14.1 mmol/L Normal [facility] Comment on above: Performed By: #### B PAIN MANAGEMENT SPECIALIST, CMP ####[facility] Dilwjqhhmf9113 [place] [address]Dr. Shahbaz Rogel AST [Catalytic activity/Vol] 19 U/L Normal 15-37 [facility] Comment on above: Performed By: #### B PAIN MANAGEMENT SPECIALIST, CMP ####[facility] Kysdllomjw[address] [place], [place] [address]Dr. Shahbaz Rogel Bilirubin [Mass/Vol] 0.5 mg/dL Normal 0.2-1.3 [facility] Comment on above: Performed By: #### B PAIN MANAGEMENT SPECIALIST, CMP ####[facility] Ocdzdzwlzj[address] [place], [place] [address]Dr. Shahbaz Rogel Calcium [Mass/Vol] 8.5 mg/dL Normal 8.5-10.1 [facility] Comment on above: Performed By: #### B PAIN MANAGEMENT SPECIALIST, CMP ####[facility] Ypoignlccc5566 [place] [address]Dr. Shahbaz Rogel Chloride [Moles/Vol] 103 mmol/L Normal 98-107 [facility] Comment on above: Performed By: #### B PAIN MANAGEMENT SPECIALIST, CMP ####[facility] Xngynukyme9[address] [place], [place] [address]Dr. Shahbaz Roegl CO2 [Moles/Vol] 25.4 mmol/L Normal 22.0-30.0 [facility] [facility] Comment [facility]: Performed By: #### B PAIN MANAGEMENT SPECIALIST, CMP ####[facility] Uqeqefll[address] [place], [place] [address]Dr. Shahbaz Rogel Creatinine [Mass/Vol] 1.48 mg/dL Critically high 0.52-1.04 [facility] Comment on above: Performed By: #### B PAIN MANAGEMENT SPECIALIST, CMP ####[facility] Mbobdeauvl[address] [place], [place] [address]Dr. Shahbaz Juan F EGFR-AF S[place] 44 mL/min/1.73m2 Critically low >=60 [facility] Comment on above: Performed By: #### B PAIN MANAGEMENT SPECIALIST, CMP ####[facility] Hiflszsuzi[address] [place], [place] [address]Dr. Shahbaz Juan F EGFR-NON AF S[place] 36 mL/min/1.73m2 Critically low >=60 [facility] Comment on above: Performed By: #### B PAIN MANAGEMENT SPECIALIST, CMP ####[facility] Mxicukabeq[address] [place], [place] [address]Dr. Shahbaz Juan F Globulin (S) [Mass/Vol] 3.7 g/dL Normal [facility] Comment on above: Performed By: #### B PAIN MANAGEMENT SPECIALIST, CMP ####[facility] Uaafvbppyn[address] [place], [place] [address]Dr. Shahbaz Juan F Glucose [Mass/Vol] 203 mg/dL Critically high 74-106 T [facility] Comment on above: Performed By: #### B PAIN MANAGEMENT SPECIALIST, CMP ####[facility] Qbdvinuwhm[address] [place], [place] [address]Dr. Shahbaz Rogel Potassium [Moles/Vol] 3.5 mmol/L Normal 3.4-5.0 [facility] Comment on above: Performed By: #### B PAIN MANAGEMENT SPECIALIST, CMP ####[facility] Wzzhcqcnil[address] [place], [place] [address]Dr. Shahbaz Rogel Protein [Mass/Vol] 7.2 g/dL Normal 6.1-8.2 [facility] Comment on above: Performed By: #### B PAIN MANAGEMENT SPECIALIST, CMP ####[facility] Yimyvoneuq[address] [place], [place] [address]Dr. Lilajarrod Rogel Sodium [Moles/Vol] 139 mmol/L Normal 137-145 [facility] Comment on above: Performed By: #### B PAIN MANAGEMENT SPECIALIST, CMP ####[facility] Vrgzlvtzvx[address] [place], [place] [address]Dr. Shahbaz Rogel Urea nitrogen [Mass/Vol] 17.0 mg/dL Normal 7.0-18.0 [facility] Comment on above: Performed By: #### B PAIN MANAGEMENT SPECIALIST, CMP ####[facility] Ogbygsijmg[address] [place], [place] [address]Dr. Shahbaz Rogel Urea nitrogen/Creatinine [Mass ratio] 11.5 mg/mg Normal [facility] Comment on above: Performed By: #### B PAIN MANAGEMENT SPECIALIST, CMP ####[facility] Mnblxlabeg[address] [place], [place] [address]Dr. Shahbaz Rogel BNPon 01-18-2022 Natriuretic peptide B (Bld) [Mass/Vol] 55.0 pg/mL Normal <=900.0 [facility] Comment on above: Performed By: #### C MP, BNP, HSTROPN ####[facility] Pxgxresvez[address] [place], [place] [address]Dr. Lilajarrod Juan F CBC W MANUAL DIFFon 01-19-20 22 ATYPICAL LYMPH # 0.12 103/ul Normal [facility] Comment on above: Performed By: #### C BCMAN ####[facility] Y[address]squlowp[address] [place], [place] [address]Dr. Shahbaz Rogel ATYPICAL LYMPH % 2 % Normal [facility] Comment on above: Performed By: #### C BCMAN ####[facility] Sfzprnitnt[address] [place], [place] [address]Dr. Yilan Rogel BAND # 0.0 103/ul Normal 0.0-0.3 [facility] Comment on above: Performed By: #### C BCMAN ####[facility] [address] [place] [address]Dr. Yilan Rogel BAND % 0 % Normal 0-5 [facility] Comment on above: Performed By: #### C BCMAN ####[facility] Vxxasxvsvv[address] [place] [address]Dr. Yijarrod Rogel BASOM # 0.00 103/ul Normal 0.00-0.10 [facility] Comment on above: Performed By: #### C BCBRICE ####[facility] Sviotdnalj[address] [place], [place] [address]Dr. Shahbaz Rogel BASOM % 0.0 % Critically low 0.2-2.0 [facility] Comment on above: Performed By: #### C BCBRICE ####[facility] [address]jywrlzgn[address] [place], [place] [address]Dr. Yijarrod Rogel BLAST # Normal [facility] Comment on above: Performed By: #### C CAIN ####[facility] L[address]iiqpxak[address] [place], [place] [address]Dr. Lilalan Rogel BLAST % Normal [facility] Comment on above: Performed By: #### C BCBRICE ####[facility] Geulcdleyp[address] [place], [place] [address]Dr. Shahbaz Rogel CORRECTED WBC Normal 4.0-11.0 [facility] Comment on above: Performed By: #### C BCBRICE ####[facility] [address]puwduq[address] [place], [place] [address]Dr. Shahbaz Rogel EOS # 0.25 103/ul Normal 0.00-0.70 [facility] Comment on above: Performed By: #### C BCMAN ####[facility] [address]loocxpz[address] [place], [place] [address]Dr. Shahbaz Rogel EOS% 4.0 % Normal 0.9-7.0 [facility] Comment on above: Performed By: #### C BCBRICE ####[facility] Anpeaybnzh[address] [place], [place] [address]Dr. Shahbaz Rogel HCT 46.8 % Normal 36.0-48.0 [facility] Comment on above: Performed By: #### C CAIN ####[facility] [address]pei[address] [place] [id number]. Shahbaz Rogel HGB 14.9 g/dl Normal 12.0-16.0 [facility] Comment on above: Performed By: #### C CAIN ####[facility] Q[address]mbvbqrkn[address] [place] [id number]. Shahbaz Rogel LYMPHM # 0.68 103/ul Critically low 1.20-3.80 [facility] Comment on above: Performed By: #### C CAIN ####[facility] Qsckbzwqtz59[address] [place] [address]Dr. Shahbaz Rogel LYMPHM% 11.0 % Critically low 20.5-60.0 [facility] Comment on above: Performed By: #### C CAIN ####[facility] X[address]cqkaef[address] [place] [address]Dr. Shahbaz Rogel MCH 27.6 pg Normal 26.7-34.0 [facility] Comment on above: Performed By: #### Cheri BARLOW ####[facility] [address]kl[address] [place] [address]Dr. Shahbaz Rogel MCHC 31.8 g/dl Normal 29.9-35.2 [facility] Comment on above: Performed By: #### Cheri BARLOW ####[facility] [address]loaalmqmb[address] [place] [address]Dr. Shahbaz Rogel MCV 86.8 fL Normal 81.0-99.0 [facility] Comment on above: Performed By: #### C CAIN ####[facility] P[address]ymnemo[address] [place] [address]Dr. Shahbaz Rogel METAMYELOCYTE # Normal [facility] Comment on above: Performed By: #### C CAIN ####[facility] [address]qmpw[address] [place] [address]Dr. Shahbaz Rogel METAMYELOCYTE % Normal [facility] Comment on above: Performed By: #### C CAIN ####[facility] Adpcjjavoh53[address] [place] [id number]. Shahbaz Rogel MONOM# 0.19 103/ul Critically low 0.30-0.80 [facility] Comment on above: Performed By: #### C CAIN ####[facility] [address]wn[address]autu[address] [place] [id number]. Shahbaz Rogel MONOM% 3.0 % Normal 1.7-12.0 [facility] Comment on above: Performed By: #### C CAIN ####[facility] Qcuyvozcho39[address] [place] [id number]. Shahbaz Rogel MPV 9.6 fL Normal 9.5-13.5 [facility] Comment on above: Performed By: #### C CAIN ####[facility] Bzgdmnowdu39[address] [place] [id number]. Shahbaz Rogel MYELOCYTE # Normal [facility] Comment on above: Performed By: #### Cheri BARLOW ####[facility] Cehpclpheu[address] [place] [id number]. Shahbaz Rogel MYELOCYTE % Normal [facility] Comment on above: Performed By: #### Cheri BARLOW ####[facility] [address] [place], [place] [address]Dr. Shahbaz Rogel NRBC Normal [facility] Comment on above: Performed By: #### Cheri BARLOW ####[facility] Ugkzongmvu[address] [place] [phone]. Shahbaz Rogel PLT 203 103/ul Normal 150-450 [facility] Comment on above: Performed By: #### C CAIN ####[facility] Romjnznnvh6[address] [place] [phone]. Shahbaz Rogel RBC 5.39 106/ul Normal 4.20-5.40 [facility] Comment on above: Performed By: #### C CAIN ####[facility] [address]uz[address]df[address] [place] [id number]. Shahbaz Rogel RDW 13.7 % Normal 11.0-15.0 [facility] Comment on above: Performed By: #### Cheri BARLOW ####[facility] [address] [place], [place] [address]Fe. Shahbaz Rogel SEG # 4.96 103/ul Normal 1.40-6.50 [facility] Comment on above: Performed By: #### C BCMAN ####[facility] Q[address]qmuke[address]ou4908 [place], [place] [address]Xi. Shahbaz Rogel SEG % 80.0 % Critically high 43.0-75.0 [facility] Comment on above: Performed By: #### C BCMAN ####[facility] Vskixebnuz5672 [place], [place] [address]Kz. Shahbaz Rogel WBC 6.2 103/ul Normal 4.0-11.0 [facility] Comment on above: Performed By: #### C BCMAN ####[facility] Uckiagtfbm4496 [place], [place] [address]Ap. Shahbaz Rogel CULTURE BLOODon 01-18-2022 Microscopic examination of blood, culture Culture Observations: No growth at 5 days. Normal [facility] Comment on above: Performed By: #### B LDCX2 ####[facility] S[address]vtfbskp27[address] [place], [place] [address]Mq. Shahbaz Rogel Microscopic examination of blood, culture Culture Observations: No growth at 5 days Normal [facility] Comment on above: Performed By: #### B LDCX1 ####[facility] R[address]fykadne65[address] [place], [place] [address]Rt. Shahbaz Rogel Covid-19 PCR (CVDTB)on 12-31 SARS-CoV-2 (COVID-19) RNA PAVAN+probe Ql (Unsp spec) Not detected Normal NOT DETECTED [facility] Comment on above: Result Comment: This test is not yet approved or cleared by the [place] FDA. When there are no FDA-approved or cleared tests available, and other criteria are met, FDA can make tests available under an emergency access mechanism called an Emergency Use Authorization (EUA). The EUA for this test is supported by the [employer] of Health and Human Service's (HHS's) declaration [...] with SARS-CoV-2. Performed By: #### C VDTBH ####[facility] [address] [place] [address]. Shahbaz Rogel D-DIMERon 01-18-2022 D-DIMER 0.29 mg/L FEU Normal 0.19-0.50 [facility] Comment on above: Performed By: #### D DIM ####[facility] [address] [place] [address]. Lilajarrod [facility] D-DIMER COMMENTS SEE BELOW Normal [facility] Comment on above: Result Comment: Incr eases [...] generalized hospitalization. Performed By: #### D DIM ####[facility] [address] [place] [address]. jarrod Rogel INFLUENZA A AND B AGon 01-18 INFLUANEGH SEE BELOW Normal [facility] Comment on above: Result Comment: Nega tive for Flu A protein angiten. Infection due to Flu A cannot be ruled out. Flu A angiten in the sample may be below the detection limit of the test. Performed By: #### I NFLUAB ####[facility] [address] [place] [address]. Shahbaz [facility] INFLUBNEGH SEE BELOW Normal [facility] Comment on above: Result Comment: Nega tive for Flu B protein antigen. Infection due to Flu B cannot be ruled out. Flu B antigen in the sample may be below the detection limit of the test. Performed By: #### I NFLUAB ####[facility] Liqvivgtqj[address] [place], [place] [address]Dr. Shahbaz Rogel INFLUENZA A AG Negative Normal NEGATIVE SEE COMMENT [facility] Comment on above: Performed By: #### I NFLUAB ####[facility] Azwynaicat[address] [place], [place] [address]Dr. Shahbaz Rogel INFLUENZA B AG Negative Normal NEGATIVE SEE COMMENT [facility] Comment on above: Performed By: #### I NFLUAB ####[facility] Yshargpiwc[address] [place], [place] [address]Dr. Shahbaz Rogel INTERNAL CONTROLS Within Normal Limits Normal Wi thin Normal Limits [facility] Comment on above: Performed By: #### I NFLUAB ####[facility] Uxgmsarpub[address] [place], [place] [address]Dr. Shahbaz Rogel LACTATE/LACTIC ACIDon 2021 Lactate [Moles/Vol] 1.0 mmol/L Normal 0.7-2.0 [facility] Comment on above: Performed By: #### L ACT ####[facility] Uuumzosuiq[address] [place], [place] [address]Dr. Shahbaz Rogel PROF 14(COMP METB)on 022 Albumin [Mass/Vol] 3.8 g/dL Normal 3.4-5.0 [facility] Comment on above: Performed By: #### C MP, BNP, HSTROPN ####[facility] [address]myclohazf[address] [place], [place] [address]Dr. Shahbaz Rogel Albumin/Globulin [Mass ratio] 1.0 {ratio} Normal [facility] Comment on above: Performed By: #### C MP, BNP, HSTROPN ####[facility] Ibdtcnbfxb[address] [place], [place] [address]Dr. Shahbaz Rogel ALP [Catalytic activity/Vol] 116 U/L Normal 46-116 [facility] Comment on above: Performed By: #### C MP, BNP, HSTROPN ####[facility] Pl[address]jhdur[address] [place] [address]Dr. Shahbaz Rogel ALT [Catalytic activity/Vol] 16 U/L Normal 14-59 [facility] Comment on above: Performed By: #### C MP, BNP, HSTROPN ####[facility] Irvswmfzlp4695 [place] [address]Dr. Shahbaz Rogel Anion gap [Moles/Vol] 9.4 mmol/L Normal [facility] Comment on above: Performed By: #### C MP, BNP, HSTROPN ####[facility] Jxyisuywwx0812 [place] [address]Dr. Shahbza Rogel AST [Catalytic activity/Vol] 19 U/L Normal 15-37 [facility] Comment on above: Performed By: #### C MP, BNP, HSTROPN ####[facility] Gpupothtdl4687 [place] [address]Dr. Shahbaz Rogel Bilirubin [Mass/Vol] 0.5 mg/dL Normal 0.2-1.3 [facility] Comment on above: Performed By: #### C MP, BNP, HSTROPN ####[facility] Rzt[address]prihc[address] [place], [place] [address]Dr. Shahbaz Rogel Calcium [Mass/Vol] 8.9 mg/dL Normal 8.5-10.1 [facility] Comment on above: Performed By: #### C MP, BNP, HSTROPN ####[facility] Nbkhcracou[address] [place] [address]Dr. Shahbaz Rogel Chloride [Moles/Vol] 104 mmol/L Normal 98-107 [facility] Comment on above: Performed By: #### C MP, BNP, HSTROPN ####[facility] C[address]shxmfvwf[address] [place], [place] [address]Dr. Shahbaz Rogel CO2 [Moles/Vol] 27.2 mmol/L Normal 22.0-30.0 [facility] Comment on above: Performed By: #### C MP, BNP, HSTROPN ####[facility] [address]mgztzxei[address] [place], [place] [address]Dr. Shahbaz Rogel Creatinine [Mass/Vol] 0.99 mg/dL Normal 0.52-1.04 [facility] Comment on above: Performed By: #### C MP, BNP, HSTROPN ####[facility] Evptlehioy[address] [place] [address]Dr. Shahbaz Rogel EGFR-AF [place] >60 Normal >=60 [facility] Comment on above: Performed By: #### C MP, BNP, HSTROPN ####[facility] Xrhqygrgxy[address] [place] [address]Dr. Shahbaz Rogel EGFR-NON AF [place] 58 mL/min/1.73m2 Critically low >=60 [facility] Comment on above: Performed By: #### C MP, BNP, HSTROPN ####[facility] [address]zuwflulbn[address] [place], [place] [address]Dr. Shahbaz Rogel Globulin (S) [Mass/Vol] 3.8 g/dL Normal [facility] Comment on above: Performed By: #### C MP, BNP, HSTROPN ####[facility] Mkmwdactwf[address] [place], [place] [address]Dr. Shahbaz Rogel Glucose [Mass/Vol] 104 mg/dL Normal 74-106 [facility] Comment on above: Performed By: #### C MP, BNP, HSTROPN ####[facility] Kkhttxgxuz5[address] [place] [address]Dr. Shahbaz Rogel Potassium [Moles/Vol] 3.6 mmol/L Normal 3.4-5.0 [facility] Comment on above: Performed By: #### C MP, BNP, HSTROPN ####[facility] [address]zmhzclm[address] [place], [place] [address]Dr. Shahbaz Rogel Protein [Mass/Vol] 7.6 g/dL Normal 6.1-8.2 [facility] Comment on above: Performed By: #### C MP, BNP, HSTROPN ####[facility] Mxrjpcfuuk49[address] [place] [address]Dr. Shahbaz Rogel Sodium [Moles/Vol] 137 mmol/L Normal 137-145 [facility] Comment on above: Performed By: #### C MP, BNP, HSTROPN ####[facility] Hgdqdxcbje4910 [place] [phone]. Shahbaz Rogel Urea nitrogen [Mass/Vol] 9.0 mg/dL Normal 7.0-18.0 [facility] Comment on above: Performed By: #### C MP, BNP, HSTROPN ####[facility] Qkmnfliuti9640 [place] [id number]. Shahbaz Rogel Urea nitrogen/Creatinine [Mass ratio] 9.1 mg/mg Normal [facility] Comment on above: Performed By: #### C MP, BNP, HSTROPN ####[facility] Rfkspqxndj8[address] [place] [address]Dr. Shahbaz Rogel TROPONIN, HIGH SENSITIVITYon 01-18-2022 HSTROP 6.4 pg/mL Normal 4.0-35.5 [facility] Comment on above: Result Comment: CUT- OFF POINTS HAVE BEEN ESTABLISHED BASED ON THE FOURTH UNIVERSAL DEFINITIONS OF MYOCARDIALINFARCTION. THE UPPER REFERENCE LIMIT (URL) OF TROPONIN, DEFINED THE 99TH PERCENTILE OFcTnI DISTRIBUTION IN A REFERENCE POPULATION, HAS BEEN CONFIRMED THE DECISION THRESHOLDFOR NV DIAGNOSIS. Performed By: #### C MP, BNP, HSTROPN ####[facility] Zgcmwdwhnr[address] [place] [address]Dr. Shahbaz Rogel XR CHEST 2 Von 01-18-2022 XR CHEST 2 V Normal [facility] URINALYSIS REFLEXon 04-04-20 20 Appearance (U) CLEAR Normal CLEAR [facility] Comment on above: Order Comment: No: D o not add to previous draw Performed By: #### 1 0070, 28180, 39442, 83736, 94933, 27231 #### [facility] [address] [place] [address], [facility] Bilirubin [Mass/Vol] Negative Normal NEGATIVE [facility] Comment on above: Order Comment: No: D o not add to previous draw Performed By: #### 1 0070, 39104, 13999, 58246, 15017, 86000 #### [facility] [address] [place] [address], [place] BLOOD Negative Normal NEGATIVE [facility] Comment on above: Order Comment: No: D o not add to previous draw Performed By: #### 1 0070, 17476, 54864, 86214, 14535, 22005 #### [facility] [address] [place] [address], [place] Color (U) YELLOW Normal YELLOW [facility] Comment on above: Order Comment: No: D o not add to previous draw Performed By: #### 1 0070, 93327, 66675, 90888, 01961, 61941 #### [facility] [address] [place] [address], [place] Glucose [Mass/Vol] Negative Normal NEGATIVE [facility] Comment on above: Order Comment: No: D o not add to previous draw Performed By: #### 1 0070, 03388, 51663, 58179, 99873, 10232 #### [facility] [address] [place] [address], [place] KETONE Negative Normal NEGATIVE [facility] Comment on above: Order Comment: No: D o not add to previous draw Performed By: #### 1 0070, 70295, 14012, 02939, 45645, 04320 #### [facility] [address] [place] [address], [place] LEUK ELIU Negative Normal NEGATIVE [facility] Comment on above: Order Comment: No: D o not add to previous draw Performed By: #### 1 0070, 77749, 15607, 52959, 48594, 03439 #### [facility] [address] [place] [address], [place] MICRO NOT DONE Normal [facility] Comment on above: Order Comment: No: D o not add to previous draw Result Comment: Micr oscopics not performed on urines with negative chemical reactions unless requested in original order Performed By: #### 1 0070, 89611, 68116, 10077, 53112, 38389 #### [facility] [address] [facility] [place] [address], [facility] Nitrite Ql (U) Negative Normal NEGATIVE [facility] Comment on above: Order Comment: No: D o not add to previous draw Performed By: #### 1 0070, 25174, 45052, 12985, 83019, 07813 #### [facility] [address] [place] [address], [facility] pH (Bld) 5.0 Normal 5.0-8.0 [facility] Comment on above: Order Comment: No: D o not add to previous draw Performed By: #### 1 0070, 67495, 95299, 56482, 53480, 61552 #### [facility] [address] [facility] [place] [address], [facility] Protein (U) [Mass/Vol] Negative Normal NEGATIVE e [facility] Comment on above: Order Comment: No: D o not add to previous draw Performed By: #### 1 0070, 30557, 05906, 34211, 09666, 16821 #### [facility] [address] [place] [address], [facility] SPEC GRAV 1.012 Low 1.015-1.02 0 [facility] Comment on above: Order Comment: No: D o not add to previous draw Performed By: #### 1 0070, 22178, 37337, 92849, 95882, 55241 #### [facility] [address] [facility] [place] [address], [facility] BASIC METABOLIC PANELon 07-0 2-2020 Calcium [Mass/Vol] 8.4 mg/dL Low 8.6-10.3 [facility] Comment on above: Order Comment: No: D o not add to previous draw Performed By: #### 1 0070, 79045, 55853, 20543, 76861, 45184 #### [facility] [address] [place] [address], [place] Chloride [Moles/Vol] 101 mmol/L Normal 98-107 [facility] Comment on above: Order Comment: No: D o not add to previous draw Performed By: #### 1 0070, 90820, 72263, 67703, 52512, 60501 #### [facility] [address] [place] [address], [facility] CO2 [Moles/Vol] 29 mmol/L Normal 21-31 [facility] Comment on above: Order Comment: No: D o not add to previous draw Performed By: #### 1 0070, 29719, 24276, 80999, 73523, 71342 #### [facility] [address] [place] [address], [facility] Creatinine [Mass/Vol] 0.79 mg/dL Normal 0.60-1.20 [facility] Comment on above: Order Comment: No: D o not add to previous draw Performed By: #### 1 0070, 05993, 35586, 40326, 40365, 78895 #### [facility] [address] [place] [address], [facility] GFR/1.73 sq M predicted among blacks MDRD (S/P/Bld) [Vol rate/Area] mL/min/{1.73_m2} Normal >60 [facility] Comment on above: Order Comment: No: D o not add to previous draw Performed By: #### 1 0070, 65505, 52563, 52126, 45877, 27488 #### [facility] [address] [place] [address], [place] GFR/1.73 sq M predicted among non-blacks MDRD (S/P/Bld) [Vol rate/Area] mL/min/{1.73_m2} Normal >60 [facility] Comment on above: Order Comment: No: D o not add to previous draw Performed By: #### 1 0070, 45116, 75817, 26951, 85059, 96495 #### [facility] [address] [place] [address], [facility] Glucose [Mass/Vol] 91 mg/dL Normal 70-100 [facility] Comment on above: Order Comment: No: D o not add to previous draw Performed By: #### 1 0070, 31142, 41392, 80659, 80152, 57585 #### [facility] [address] [place] [address], [facility] Potassium [Moles/Vol] 3.9 mmol/L Normal 3.5-5.1 [facility] Comment on above: Order Comment: No: D o not add to previous draw Performed By: #### 1 0070, 61099, 95032, 13340, 38758, 09147 #### [facility] [address] [facility] [place] [address], [facility] Sodium [Moles/Vol] 133 mmol/L Low 136-145 [facility] Comment on above: Order Comment: No: D o not add to previous draw Performed By: #### 1 0070, 70287, 23776, 17491, 27568, 38892 #### [facility] [address] [place] [address], [facility] Urea nitrogen [Mass/Vol] 10 mg/dL Normal 7-25 [facility] Comment on above: Order Comment: No: D o not add to previous draw Performed By: #### 1 0070, 21579, 02207, 76727, 96294, 41856 #### [facility] [address] [facility] [place] [address], [facility] CBC W/DIFFon 04-02-2020 ABS BASOPHILS 0.0 10*3/uL Normal 0.0-0.2 [facility] Comment on above: Order Comment: No: D o not add to previous draw Performed By: #### 1 0070, 89152, 48087, 62510, 94065, 29439 #### [facility] [address] [place] [address], [facility] ABS IMM GRANS 0.0 10*3/uL Normal 0.0-0.2 [facility] Comment on above: Order Comment: No: D o not add to previous draw Performed By: #### 1 0070, 78688, 45819, 77273, 43474, 11519 #### [facility] [address] [place] [address], [facility] ABS NEUTROPHILS 4.5 10*3/uL Normal 1.6-7.6 [facility] Comment on above: Order Comment: No: D o not add to previous draw Performed By: #### 1 0070, 93460, 66800, 90487, 96507, 46707 #### [facility] [address] [facility] [place] [address], [facility] Basophils/100 WBC (Bld) 0.2 % Normal 0.0-1.0 [facility] Comment on above: Order Comment: No: D o not add to previous draw Performed By: #### 1 0070, 10869, 41222, 96637, 76509, 10469 #### [facility] [address] [place] [address], [facility] Eosinophils (Bld) [#/Vol] 0.2 10*3/uL Normal 0.0-0.5 [facility] Comment on above: Order Comment: No: D o not add to previous draw Performed By: #### 1 0070, 07927, 11364, 15710, 99307, 95579 #### [facility] [address] [address], [facility] Eosinophils/100 WBC (Bld) 3.6 % Normal 0.0-6.0 [facility] Comment on above: Order Comment: No: D o not add to previous draw Performed By: #### 1 0070, 51572, 83297, 23609, 85445, 10459 #### [facility] [address] [place] [address], [place] Erythrocyte distribution width (RBC) [Ratio] 12.7 % Normal 11.5-15.0 [facility] Comment on above: Order Comment: No: D o not add to previous draw Performed By: #### 1 0070, 54403, 98307, 96422, 49831, 89815 #### [facility] [address] [place] [id number], [facility] Hematocrit (Bld) [Volume fraction] 42.9 % Normal 36.0-45.0 [facility] Comment on above: Order Comment: No: D o not add to previous draw Performed By: #### 1 0070, 56603, 10673, 29461, 91281, 34175 #### [facility] [address] [address], [facility] Hemoglobin (Bld) [Mass/Vol] 13.5 g/dL Normal 12.0-15.0 [facility] Comment on above: Order Comment: No: D o not add to previous draw Performed By: #### 1 0070, 27572, 43803, 40894, 00739, 93907 #### [facility] [address] [address], [facility] IMMATURE GRANS 0.3 % Normal 0.0-1.0 [facility] Comment on above: Order Comment: No: D o not add to previous draw Performed By: #### 1 0070, 64491, 93767, 74619, 24763, 80877 #### [facility] [address] [address], [facility] Lymphocytes (Bld) [#/Vol] 1.1 10*3/uL Low 1.2-4.0 [facility] Comment on above: Order Comment: No: D o not add to previous draw Performed By: #### 1 0070, 97358, 85957, 86360, 22573, 91654 #### [facility] [address] [place] [address], [place] Lymphocytes/100 WBC (Bld) 18.0 % Low 20.0-45.0 [facility] Comment on above: Order Comment: No: D o not add to previous draw Performed By: #### 1 0070, 93012, 17559, 09107, 07082, 65326 #### [facility] [address] [place] [address], [facility] MCH (RBC) [Entitic mass] 27.4 pg Normal 27.0-33.0 [facility] Comment on above: Order Comment: No: D o not add to previous draw Performed By: #### 1 0070, 00927, 33165, 70995, 72769, 89268 #### [facility] [address] [facility] [place] [address], [facility] MCHC (RBC) [Mass/Vol] 31.5 g/dL Low 32.0-35.0 [facility] Comment on above: Order Comment: No: D o not add to previous draw Performed By: #### 1 0070, 77658, 40079, 73725, 49126, 91510 #### [facility] [address] [facility] [address] MCV (RBC) [Entitic vol] 87.0 fL Normal 82.0-98.0 [facility] Comment on above: Order Comment: No: D o not add to previous draw Performed By: #### 1 0070, 82329, 60360, 63954, 14120, 38307 #### [facility] [address] [facility] [place] [address], [facility] Monocytes (Bld) [#/Vol] 0.3 10*3/uL Normal 0.1-1.0 [facility] Comment on above: Order Comment: No: D o not add to previous draw Performed By: #### 1 0070, 69886, 26913, 64045, 67683, 57218 #### [facility] [address] [place] [address], [facility] MONOS 5.5 % Normal 5.0-12.0 [facility] Comment on above: Order Comment: No: D o not add to previous draw Performed By: #### 1 0070, 32502, 01220, 84134, 56147, 36426 #### [facility] [address] [place] [address], [facility] Neutrophils/100 WBC (Bld) 72.4 % High 40.0-72.0 [facility] Comment on above: Order Comment: No: D o not add to previous draw Performed By: #### 1 0070, 10322, 34327, 17146, 56745, 09276 #### [facility] [address] [place] [address], [facility] Nucleated RBC/100 WBC (Bld) [Ratio] 0 % Normal 0-0 [facility] Comment on above: Order Comment: No: D o not add to previous draw Performed By: #### 1 0070, 41264, 12490, 32777, 77669, 54639 #### [facility] [address] [place] [address], [facility] PLAT CNT 264 10*3/uL Normal 150-400 [facility] Comment on above: Order Comment: No: D o not add to previous draw Performed By: #### 1 0070, 84970, 74204, 45099, 46279, 75777 #### [facility] [address] [place] [address], [facility] RBC (Bld) [#/Vol] 4.93 10*6/uL Normal 3.80-5.00 [facility] Comment on above: Order Comment: No: D o not add to previous draw Performed By: #### 1 0070, 31059, 47292, 17023, 13050, 85981 #### [facility] [address] [facility] [place] [address], [facility] WBC (Bld) [#/Vol] 6.17 10*3/uL Normal 4.00-10.60 [facility] Comment on above: Order Comment: No: D o not add to previous draw Performed By: #### 1 0070, 69757, 05302, 19916, 11248, 71541 #### [facility] [address] [place] [address], [facility] MAGNESIUM BLOODon 04-02-2020 Magnesium [Mass/Vol] 2.0 mg/dL Normal 1.9-2.7 [facility] Comment on above: Order Comment: No: D o not add to previous draw Performed By: #### 1 0070, 14631, 02023, 39394, 11655, 61845 #### [facility] [address] [place] [address], [facility] PHOSPHORUS BLOODon 0 Phosphate [Mass/Vol] 3.1 mg/dL Normal 2.5-5.0 [facility] Comment on above: Order Comment: No: D o not add to previous draw Performed By: #### 1 0070, 16952, 10200, 26972, 00133, 30905 #### [facility] [address] [place] [address], [facility] POC GLUCOSE LABon 04-02-2020 Glucose [Mass/Vol] 134 mg/dL High 70-100 [facility] Comment on above: Performed By: #### 1 0070, 31136, 58487, 26086, 62816, 78346 #### [facility] [address] [place] [address], [facility] UFH HEPARIN ASSAYon 04-02-20 20 UNFRACTIONATED HEPARIN 0.91 IU/mL Critically high 0.30-0.7 0 [facility] Comment on above: Result Comment: Violet roxaban and Apixaban will interfere with the anti Xa assay used to monitor UFH and LMWH. RESULTS CHECKED AND CALLED. ACCURATELY READ BACK BY LYNN POLANCO RN @ [id number] Performed By: #### 1 0070, 21499, 16556, 38067, 15321, 60566 #### [facility] [address] [place] [address], [facility] ALBUMIN BLOODon 04-01-2020 Albumin [Mass/Vol] 3.0 g/dL Low 3.5-5.7 [facility] Comment on above: Performed By: #### 1 0070, 50967, 30891, 58631, 66340, 73739 #### [facility] [address] [place] [address], [facility] BASIC METABOLIC PANELon 07-0 Calcium [Mass/Vol] 8.1 mg/dL Low 8.6-10.3 [facility] Comment on above: Order Comment: No: D o not add to previous draw Performed By: #### 1 0070, 21318, 54112, 19171, 04631, 84165 #### [facility] [address] [place] [address], [facility] Chloride [Moles/Vol] 105 mmol/L Normal 98-107 [facility] Comment on above: Order Comment: No: D o not add to previous draw Performed By: #### 1 0070, 47316, 48102, 28348, 73125, 15171 #### [facility] [address] [place] [address], [place] CO2 [Moles/Vol] 26 mmol/L Normal 21-31 [facility] Comment on above: Order Comment: No: D o not add to previous draw Performed By: #### 1 0070, 13825, 91051, 12803, 10068, 98688 #### [facility] [address] [place] [address], [place] Creatinine [Mass/Vol] 0.65 mg/dL Normal 0.60-1.20 [facility] Comment on above: Order Comment: No: D o not add to previous draw Performed By: #### 1 0070, 10332, 80060, 02571, 81240, 26053 #### [facility] [address] [place] [address], [place] GFR/1.73 sq M predicted among blacks MDRD (S/P/Bld) [Vol rate/Area] mL/min/{1.73_m2} Normal >60 [facility] Comment on above: Order Comment: No: D o not add to previous draw Performed By: #### 1 0070, 93899, 79751, 99239, 36391, 60308 #### [facility] [address] [place] [address], [place] GFR/1.73 sq M predicted among non-blacks MDRD (S/P/Bld) [Vol rate/Area] mL/min/{1.73_m2} Normal >60 [facility] Comment on above: Order Comment: No: D o not add to previous draw Performed By: #### 1 0070, 56759, 82382, 88068, 94118, 15842 #### [facility] [address] [place] [address], [place] Glucose [Mass/Vol] 87 mg/dL Normal 70-100 [facility] Comment on above: Order Comment: No: D o not add to previous draw Performed By: #### 1 0070, 75740, 59149, 88322, 62053, 33166 #### [facility] [address] [place] [address], [place] Potassium [Moles/Vol] 4.3 mmol/L Normal 3.5-5.1 [facility] Comment on above: Order Comment: No: D o not add to previous draw Performed By: #### 1 0070, 71665, 59263, 23859, 41802, 68560 #### [facility] [address] [place] [address], [place] Sodium [Moles/Vol] 136 mmol/L Normal 136-145 [facility] Comment on above: Order Comment: No: D o not add to previous draw Performed By: #### 1 0070, 14883, 44740, 66367, 97199, 96146 #### [facility] [address] [place] [address], [place] Urea nitrogen [Mass/Vol] 8 mg/dL Normal 7-25 [facility] Comment on above: Order Comment: No: D o not add to previous draw Performed By: #### 1 0070, 87769, 85700, 23541, 57799, 03755 #### [facility] [address] CBC W/DIFFon 04-01-2020 ABS BASOPHILS 0.0 10*3/uL Normal 0.0-0.2 [facility] Comment on above: Order Comment: No: D o not add to previous draw Performed By: #### 1 0070, 94255, 44730, 19995, 59885, 03758 #### [facility] [address] ABS IMM GRANS 0.0 10*3/uL Normal 0.0-0.2 [facility] Comment on above: Order Comment: No: D o not add to previous draw Performed By: #### 1 0070, 23233, 73518, 81917, 11619, 38550 #### [facility] [address] ABS NEUTROPHILS 3.4 10*3/uL Normal 1.6-7.6 [facility] Comment on above: Order Comment: No: D o not add to previous draw Performed By: #### 1 0070, 50847, 26517, 18895, 26995, 41867 #### [facility] [address] [facility]. [address] Basophils/100 WBC (Bld) 0.2 % Normal 0.0-1.0 [facility] Comment on above: Order Comment: No: D o not add to previous draw Performed By: #### 1 0070, 27745, 13959, 36652, 47359, 59975 #### [facility] [address] [place] [address], [facility] Eosinophils (Bld) [#/Vol] 0.1 10*3/uL Normal 0.0-0.5 [facility] Comment on above: Order Comment: No: D o not add to previous draw Performed By: #### 1 0070, 23346, 36339, 13026, 56534, 02622 #### [facility] [address] [place] [address], [facility] Eosinophils/100 WBC (Bld) 2.6 % Normal 0.0-6.0 [facility] Comment on above: Order Comment: No: D o not add to previous draw Performed By: #### 1 0070, 29723, 74286, 35868, 65729, 35325 #### [facility] [address] [place] [address], [facility] Erythrocyte distribution width (RBC) [Ratio] 13.0 % Normal 11.5-15.0 [facility] Comment on above: Order Comment: No: D o not add to previous draw Performed By: #### 1 0070, 25189, 00153, 08612, 93823, 02584 #### [facility] [address] [place] [address], [facility] Hematocrit (Bld) [Volume fraction] 40.9 % Normal 36.0-45.0 [facility] Comment on above: Order Comment: No: D o not add to previous draw Performed By: #### 1 0070, 06557, 41201, 00691, 98973, 49577 #### [facility] [address] [place] [address], [facility] Hemoglobin (Bld) [Mass/Vol] 12.8 g/dL Normal 12.0-15.0 [facility] Comment on above: Order Comment: No: D o not add to previous draw Performed By: #### 1 0070, 60206, 97824, 28365, 09478, 12387 #### [facility] [address] [place] [address], [facility] IMMATURE GRANS 0.6 % Normal 0.0-1.0 [facility] Comment on above: Order Comment: No: D o not add to previous draw Performed By: #### 1 0070, 59286, 97586, 57954, 81737, 71725 #### [facility] [address] [facility] [place] [address], [facility] Lymphocytes (Bld) [#/Vol] 1.2 10*3/uL Normal 1.2-4.0 [facility] Comment on above: Order Comment: No: D o not add to previous draw Performed By: #### 1 0070, 88870, 27088, 38345, 39320, 60693 #### [facility] [address] [facility] [place] [address], [facility] Lymphocytes/100 WBC (Bld) 23.7 % Normal 20.0-45.0 [facility] Comment on above: Order Comment: No: D o not add to previous draw Performed By: #### 1 0070, 04391, 45447, 85432, 77487, 19535 #### [facility] [address] [facility] [place] [address], [facility] MCH (RBC) [Entitic mass] 27.4 pg Normal 27.0-33.0 [facility] Comment on above: Order Comment: No: D o not add to previous draw Performed By: #### 1 0070, 51624, 31886, 81197, 40031, 61365 #### [facility] [address] [facility] [place] [address], [facility] MCHC (RBC) [Mass/Vol] 31.3 g/dL Low 32.0-35.0 [facility] Comment on above: Order Comment: No: D o not add to previous draw Performed By: #### 1 0070, 03912, 20744, 31467, 30204, 68345 #### [facility] [address] [facility] [place] [address], [facility] MCV (RBC) [Entitic vol] 87.6 fL Normal 82.0-98.0 [facility] Comment on above: Order Comment: No: D o not add to previous draw Performed By: #### 1 0070, 62615, 24650, 01574, 09318, 75807 #### [facility] [address] [facility] [address], [facility] Monocytes (Bld) [#/Vol] 0.3 10*3/uL Normal 0.1-1.0 [facility] Comment on above: Order Comment: No: D o not add to previous draw Performed By: #### 1 0070, 74876, 12869, 78508, 75926, 46438 #### [facility] [address] MONOS 5.4 % Normal 5.0-12.0 [facility] Comment on above: Order Comment: No: D o not add to previous draw Performed By: #### 1 0070, 80806, 89390, 28792, 23937, 95327 #### [facility] [address] Neutrophils/100 WBC (Bld) 67.5 % Normal 40.0-72.0 [facility] Comment on above: Order Comment: No: D o not add to previous draw Performed By: #### 1 0070, 83547, 88986, 27571, 22549, 54710 #### [facility] [address] Nucleated RBC/100 WBC (Bld) [Ratio] 0 % Normal 0-0 [facility] Comment on above: Order Comment: No: D o not add to previous draw Performed By: #### 1 0070, 17434, 99426, 08089, 15166, 84882 #### [facility] [address] [place] [address], [facility] PLAT CNT 237 10*3/uL Normal 150-400 [facility] Comment on above: Order Comment: No: D o not add to previous draw Performed By: #### 1 0070, 49532, 56024, 54428, 77716, 45504 #### [facility] [address] [facility] [place] [address], [facility] RBC (Bld) [#/Vol] 4.67 10*6/uL Normal 3.80-5.00 [facility] Comment on above: Order Comment: No: D o not add to previous draw Performed By: #### 1 0070, 83546, 70734, 50573, 71901, 85736 #### [facility] [address] [facility] [place] [address], [facility] WBC (Bld) [#/Vol] 4.98 10*3/uL Normal 4.00-10.60 [facility] Comment on above: Order Comment: No: D o not add to previous draw Performed By: #### 1 0070, 37687, 48513, 05068, 78102, 46840 #### [facility] [address] [place], [place] [id number] [place] [address] CHEST AND LATERALon 04-01-20 CHEST AND LATERAL [facility] Department of Radiology [address] [place] [id number] Patient Name: EMIGDIO APODACA : 1965 Sex: F Age: Race: White Pt. Location: [id number] Patient Status: I Ordered Date: 04/01/2020 7:00:00 [...] reports Electronically signed: Shari Salcedo. Transcribed by: [email or web address], User Resident: ANNE VEGA Electronically Signed by: SHARI SALCEDO @ 04/01/2020 10:12 AM I personally read this/these film(s) with this resident Normal [facility] Comment on above: Order Comment: No: D o not add to previous draw MAGNESIUM BLOODon 04-01-2020 Magnesium [Mass/Vol] 2.1 mg/dL Normal 1.9-2.7 [facility] Comment on above: Order Comment: No: D o not add to previous draw Performed By: #### 1 0070, 42767, 53218, 88739, 90943, 82196 #### [facility] [address] [facility] [place] [address], [facility] APTTon 03-31-2020 aPTT Coag (Bld) [Time] 28.3 s Normal 25.0-35.0 Th e [facility] Comment on above: Order Comment: No: [...] THIS PURPOSE. Performed By: #### 1 0070, 69274, 02137, 72874, 55528, 97186 #### [facility] [address] [place] [address], [facility] BASIC METABOLIC PANELon 06-3 0-2020 Calcium [Mass/Vol] 7.8 mg/dL Low 8.6-10.3 [facility] Comment on above: Order Comment: No: D o not add to previous draw Performed By: #### 1 0070, 16252, 09387, 04428, 40364, 76881 #### [facility] [address] [place] [address], [facility] Chloride [Moles/Vol] 108 mmol/L High 98-107 [facility] Comment on above: Order Comment: No: D o not add to previous draw Performed By: #### 1 0070, 20495, 75843, 25265, 58974, 33307 #### [facility] [address] [place] [address], [facility] CO2 [Moles/Vol] 26 mmol/L Normal 21-31 [facility] Comment on above: Order Comment: No: D o not add to previous draw Performed By: #### 1 0070, 60542, 99702, 02200, 01457, 57947 #### [facility] [address] [place] [address], [facility] Creatinine [Mass/Vol] 0.76 mg/dL Normal 0.60-1.20 [facility] Comment on above: Order Comment: No: D o not add to previous draw Performed By: #### 1 0070, 40941, 05184, 05204, 39920, 11302 #### [facility] [address] [place] [address], [place] GFR/1.73 sq M predicted among blacks MDRD (S/P/Bld) [Vol rate/Area] mL/min/{1.73_m2} Normal >60 [facility] Comment on above: Order Comment: No: D o not add to previous draw Performed By: #### 1 0070, 62589, 38842, 16143, 81142, 46560 #### [facility] [address] [place] [address], [place] GFR/1.73 sq M predicted among non-blacks MDRD (S/P/Bld) [Vol rate/Area] mL/min/{1.73_m2} Normal >60 [facility] Comment on above: Order Comment: No: D o not add to previous draw Performed By: #### 1 0070, 03678, 24732, 49319, 19793, 08209 #### [facility] [address] [place] [address], [place] Glucose [Mass/Vol] 97 mg/dL Normal 70-100 [facility] Comment on above: Order Comment: No: D o not add to previous draw Performed By: #### 1 0070, 34666, 12960, 49285, 56154, 44061 #### [facility] [address] [place] [address], [place] Potassium [Moles/Vol] 3.2 mmol/L Low 3.5-5.1 [facility] Comment on above: Order Comment: No: D o not add to previous draw Performed By: #### 1 0070, 18745, 83364, 64810, 91680, 35476 #### [facility] [address] [place] [address], [place] Sodium [Moles/Vol] 140 mmol/L Normal 136-145 [facility] Comment on above: Order Comment: No: D o not add to previous draw Performed By: #### 1 0070, 36152, 20417, 20560, 27252, 65339 #### [facility] [address] Urea nitrogen [Mass/Vol] 15 mg/dL Normal 7-25 [facility] Comment on above: Order Comment: No: D o not add to previous draw Performed By: #### 1 0070, 60268, 44947, 02443, 95005, 11817 #### [facility] [address] CBC W/DIFFon 03-31-2020 ABS BASOPHILS 0.0 10*3/uL Normal 0.0-0.2 [facility] Comment on above: Order Comment: No: D o not add to previous draw Performed By: #### 1 0070, 37402, 81566, 81230, 89006, 21839 #### [facility] [address] ABS IMM GRANS 0.0 10*3/uL Normal 0.0-0.2 [facility] Comment on above: Order Comment: No: D o not add to previous draw Performed By: #### 1 0070, 39151, 24290, 42729, 02988, 40876 #### [facility] [address] ABS NEUTROPHILS 3.2 10*3/uL Normal 1.6-7.6 [facility] Comment on above: Order Comment: No: D o not add to previous draw Performed By: #### 1 0070, 49412, 09920, 36327, 78340, 82757 #### [facility] [address] Basophils/100 WBC (Bld) 0.2 % Normal 0.0-1.0 [facility] Comment on above: Order Comment: No: D o not add to previous draw Performed By: #### 1 0070, 10592, 94546, 94419, 89663, 16962 #### [facility] [address] [place] [address], [facility] Eosinophils (Bld) [#/Vol] 0.0 10*3/uL Normal 0.0-0.5 [facility] Comment on above: Order Comment: No: D o not add to previous draw Performed By: #### 1 0070, 81237, 42195, 19951, 92742, 62556 #### [facility] [address] [place] [address], [facility] Eosinophils/100 WBC (Bld) 0.4 % Normal 0.0-6.0 [facility] Comment on above: Order Comment: No: D o not add to previous draw Performed By: #### 1 0070, 70268, 78405, 45915, 19821, 56591 #### [facility] [address] Erythrocyte distribution width (RBC) [Ratio] 13.0 % Normal 11.5-15.0 [facility] Comment on above: Order Comment: No: D o not add to previous draw Performed By: #### 1 0070, 96326, 48406, 03420, 22070, 67535 #### [facility] [address] [facility] Hematocrit (Bld) [Volume fraction] 34.4 % Low 36.0-45.0 [facility] Comment on above: Order Comment: No: D o not add to previous draw Performed By: #### 1 0070, 90333, 88027, 84217, 36609, 46895 #### [facility] [address] [place] [address], [facility] Hemoglobin (Bld) [Mass/Vol] 10.8 g/dL Low 12.0-15.0 [facility] Comment on above: Order Comment: No: D o not add to previous draw Performed By: #### 1 0070, 60632, 74166, 44023, 42958, 06459 #### [facility] [address] [place] [address], [facility] IMMATURE GRANS 0.4 % Normal 0.0-1.0 [facility] Comment on above: Order Comment: No: D o not add to previous draw Performed By: #### 1 0070, 82901, 25263, 28786, 92960, 92560 #### [facility] [address] [place] [address], [facility] Lymphocytes (Bld) [#/Vol] 1.2 10*3/uL Normal 1.2-4.0 [facility] Comment on above: Order Comment: No: D o not add to previous draw Performed By: #### 1 0070, 14049, 23435, 70931, 82602, 96567 #### [facility] [address] [place] [address], [facility] Lymphocytes/100 WBC (Bld) 25.7 % Normal 20.0-45.0 [facility] Comment on above: Order Comment: No: D o not add to previous draw Performed By: #### 1 0070, 58533, 92224, 09668, 31286, 34118 #### [facility] [address] [place] [address], [facility] MCH (RBC) [Entitic mass] 27.5 pg Normal 27.0-33.0 [facility] Comment on above: Order Comment: No: D o not add to previous draw Performed By: #### 1 0070, 33682, 67173, 63586, 75622, 74090 #### [facility] [address] [place] [address], [facility] MCHC (RBC) [Mass/Vol] 31.4 g/dL Low 32.0-35.0 [facility] Comment on above: Order Comment: No: D o not add to previous draw Performed By: #### 1 0070, 98770, 84292, 09100, 15424, 72280 #### [facility] [address] [place] [address], [facility] MCV (RBC) [Entitic vol] 87.5 fL Normal 82.0-98.0 [facility] Comment on above: Order Comment: No: D o not add to previous draw Performed By: #### 1 0070, 59127, 83512, 10030, 02833, 88557 #### [facility] [address] [facility] [place] [address], [facility] Monocytes (Bld) [#/Vol] 0.3 10*3/uL Normal 0.1-1.0 [facility] Comment on above: Order Comment: No: D o not add to previous draw Performed By: #### 1 0070, 16818, 00583, 72626, 53962, 30883 #### [facility] [address] [place] [address], [facility] MONOS 6.2 % Normal 5.0-12.0 [facility] Comment on above: Order Comment: No: D o not add to previous draw Performed By: #### 1 0070, 07424, 06867, 70744, 42044, 24365 #### [facility] [address] [facility] [place] [address], [facility] Neutrophils/100 WBC (Bld) 67.1 % Normal 40.0-72.0 [facility] Comment on above: Order Comment: No: D o not add to previous draw Performed By: #### 1 0070, 20683, 51425, 44323, 80072, 53155 #### [facility] [address] [facility] [place] [address], [facility] Nucleated RBC/100 WBC (Bld) [Ratio] 0 % Normal 0-0 [facility] Comment on above: Order Comment: No: D o not add to previous draw Performed By: #### 1 0070, 68691, 34860, 98988, 51496, 49674 #### [facility] [address] [facility] [place] [address], [facility] PLAT CNT 210 10*3/uL Normal 150-400 [facility] Comment on above: Order Comment: No: D o not add to previous draw Performed By: #### 1 0070, 47585, 21800, 77855, 37868, 51003 #### [facility] [address] [place] [address], [facility] RBC (Bld) [#/Vol] 3.93 10*6/uL Normal 3.80-5.00 [facility] Comment on above: Order Comment: No: D o not add to previous draw Performed By: #### 1 0070, 24998, 34013, 38325, 13832, 76132 #### [facility] [address] [facility] [place] [address], [facility] WBC (Bld) [#/Vol] 4.71 10*3/uL Normal 4.00-10.60 [facility] Comment on above: Order Comment: No: D o not add to previous draw Performed By: #### 1 0070, 72015, 11415, 08501, 37497, 73810 #### [facility] [address] [facility]. [address] Cardiovascular Lab Reporton 03-31-2020 Cardiovascular Lab Report [facility] Patient Name: [facility] S MR #: [id number] Department of Physician: Rebecca Weaver M.D. Medicine Service Date: 03/31/2020 Division of Birthdate: 1965 Cardiology Room #: 3AB 801244 Adult Cardiovascular Services [place] [address] Cardiovascular Laboratory Report INDICATIONS FOR PACEMAKER PLACEMENT: [...] Weaver M.D. Date Trans: 03/31/2020 03:35 P/mmo [id number] cc: Luis Armando Hines M.D. Heart Failure/ Transplant Mailstop [address] [place] [address] Normal [facility] MAGNESIUM BLOODon 03-31-2020 Magnesium [Mass/Vol] 1.8 mg/dL Low 1.9-2.7 [facility] Comment on above: Order Comment: No: D o not add to previous draw Performed By: #### 1 0070, 87439, 28706, 77900, 61490, 96160 #### [facility] [address] PHOSPHORUS BLOODon 0 Phosphate [Mass/Vol] 2.7 mg/dL Normal 2.5-5.0 [facility] Comment on above: Order Comment: No: D o not add to previous draw Performed By: #### 1 0070, 77235, 32306, 90435, 57829, 19880 #### [facility] [address] PROTHROMBIN TIMEon 0 INR Coag (PPP) [Relative time] 1.11 {INR} Normal 0.91-1.16 [facility] Comment on above: Order Comment: No: [...] CHEST 1995;108:231S-246S. Performed By: #### 1 0070, 57426, 00347, 60653, 29153, 91001 #### [facility] [address] [place] [address], [facility] PT Coag (PPP) [Time] 14.3 s Normal 12.3-14.8 [facility] Comment on above: Order Comment: No: D o not add to previous draw Result Comment: ALL RESULTS MUST BE INTERPRETED WITH RESPECT TO BLOOD DRAWING ARTIFACT OR DILUTION ERROR OF ANTICOAGULANT AT THE TIME OF SAMPLING. Performed By: #### 1 0070, 42967, 31490, 66003, 05127, 64881 #### [facility] [address] [facility] *SARS-CoV-2 COVID-19on 03-30 [id number] Not Detected Normal Not Detected [facility] Comment on above: Order Comment: No: D o not add to previous draw Performed By: #### 1 0070, 76651, 24451, 18414, 25775, 94361 #### [facility] [address] [place] [address], [facility] APTTon 03-30-2020 aPTT Coag (Bld) [Time] 24.9 s Low 25.0-35.0 [facility] Comment on above: Order Comment: No: [...] THIS PURPOSE. Performed By: #### 5 7307, 96084 #### [facility] [address] [place] [address], [facility] BASIC METABOLIC PANELon 03-03 Calcium [Mass/Vol] 8.9 mg/dL Normal 8.6-10.3 [facility] Comment on above: Order Comment: No: D o not add to previous draw Performed By: #### 1 0070, 14051, 91952, 27616, 98904, 74801 #### [facility] [address] [place] [address], [facility] Chloride [Moles/Vol] 110 mmol/L High 98-107 [facility] Comment on above: Order Comment: No: D o not add to previous draw Performed By: #### 1 0070, 16092, 76349, 26353, 73633, 96020 #### [facility] [address] [place] [address], [facility] CO2 [Moles/Vol] 26 mmol/L Normal 21-31 [facility] Comment on above: Order Comment: No: D o not add to previous draw Performed By: #### 1 0070, 23528, 24287, 69947, 91680, 92248 #### [facility] [address] [place] [address], [facility] Creatinine [Mass/Vol] 0.86 mg/dL Normal 0.60-1.20 [facility] Comment on above: Order Comment: No: D o not add to previous draw Performed By: #### 1 0070, 32211, 82289, 69092, 53771, 24772 #### [facility] [address] [place] [address], [facility] GFR/1.73 sq M predicted among blacks MDRD (S/P/Bld) [Vol rate/Area] mL/min/{1.73_m2} Normal >60 [facility] Comment on above: Order Comment: No: D o not add to previous draw Performed By: #### 1 0070, 00480, 83756, 56927, 88144, 42037 #### [facility] [address] [place] [address], [place] GFR/1.73 sq M predicted among non-blacks MDRD (S/P/Bld) [Vol rate/Area] mL/min/{1.73_m2} Normal >60 [facility] Comment on above: Order Comment: No: D o not add to previous draw Performed By: #### 1 0070, 36044, 13255, 65090, 27551, 09056 #### [facility] [address] [place] [address], [place] Glucose [Mass/Vol] 119 mg/dL High 70-100 [facility] Comment on above: Order Comment: No: D o not add to previous draw Performed By: #### 1 0070, 63683, 64205, 90164, 72878, 25213 #### [facility] [address] [place] [address], [place] Potassium [Moles/Vol] 3.5 mmol/L Normal 3.5-5.1 [facility] Comment on above: Order Comment: No: D o not add to previous draw Performed By: #### 1 0070, 58101, 01385, 55431, 72244, 11220 #### [facility] [address] [place] [address], [place] Sodium [Moles/Vol] 142 mmol/L Normal 136-145 [facility] Comment on above: Order Comment: No: D o not add to previous draw Performed By: #### 1 0070, 62409, 28899, 75413, 44424, 12128 #### [facility] [address] [place] [address], [place] Urea nitrogen [Mass/Vol] 13 mg/dL Normal 7-25 [facility] Comment on above: Order Comment: No: D o not add to previous draw Performed By: #### 1 0070, 73666, 56210, 16493, 15743, 03264 #### [facility] [address] CBC W/DIFFon 03-30-2020 ABS BASOPHILS 0.0 10*3/uL Normal 0.0-0.2 [facility] Comment on above: Performed By: #### 5 0103 #### [facility] [address] [place] [address], [facility] ABS IMM GRANS 0.0 10*3/uL Normal 0.0-0.2 [facility] Comment on above: Performed By: #### 5 0103 #### [facility] [address] ABS NEUTROPHILS 5.7 10*3/uL Normal 1.6-7.6 [facility] Comment on above: Performed By: #### 5 0103 #### [facility] [address] Basophils/100 WBC (Bld) 0.0 % Normal 0.0-1.0 [facility] Comment on above: Performed By: #### 5 0103 #### [facility] [address] [facility] [place] [address], [facility] Eosinophils (Bld) [#/Vol] 0.0 10*3/uL Normal 0.0-0.5 [facility] Comment on above: Performed By: #### 5 0103 #### [facility] [address] [place] [address], [facility] Eosinophils/100 WBC (Bld) 0.0 % Normal 0.0-6.0 [facility] Comment on above: Performed By: #### 5 0103 #### [facility] [address] [place] [address], [facility] Erythrocyte distribution width (RBC) [Ratio] 12.9 % Normal 11.5-15.0 [facility] Comment on above: Performed By: #### 5 0103 #### [facility] [address] [facility] [place] [address], [facility] Hematocrit (Bld) [Volume fraction] 36.1 % Normal 36.0-45.0 [facility] Comment on above: Performed By: #### 5 0103 #### [facility] [address] [facility]. [address] Hemoglobin (Bld) [Mass/Vol] 11.5 g/dL Low 12.0-15.0 [facility] Comment on above: Performed By: #### 5 0103 #### [facility] [address] IMMATURE GRANS 0.5 % Normal 0.0-1.0 [facility] Comment on above: Performed By: #### 5 0103 #### [facility] [address] [place] [address], [facility] Lymphocytes (Bld) [#/Vol] 0.6 10*3/uL Low 1.2-4.0 [facility] Comment on above: Performed By: #### 5 3 #### [facility] [address] [place] [address], [facility] Lymphocytes/100 WBC (Bld) 9.3 % Low 20.0-45.0 [facility] Comment on above: Performed By: #### 5 3 #### [facility] [address] [place] [address], [facility] MCH (RBC) [Entitic mass] 27.4 pg Normal 27.0-33.0 [facility] Comment on above: Performed By: #### 5 3 #### [facility] [address] [facility] [place] [address], [facility] MCHC (RBC) [Mass/Vol] 31.9 g/dL Low 32.0-35.0 [facility] Comment on above: Performed By: #### 5 0103 #### [facility] [address] [facility] [place] [address], [facility] MCV (RBC) [Entitic vol] 86.0 fL Normal 82.0-98.0 [facility] Comment on above: Performed By: #### 5 0103 #### [facility] [address] [place] [address], [facility] Monocytes (Bld) [#/Vol] 0.2 10*3/uL Normal 0.1-1.0 [facility] Comment on above: Performed By: #### 5 3 #### [facility] [address] [place] [address], [facility] MONOS 2.5 % Low 5.0-12.0 [facility] Comment on above: Performed By: #### 5 3 #### [facility] [address] [place] [address], [facility] Neutrophils/100 WBC (Bld) 87.7 % High 40.0-72.0 [facility] Comment on above: Performed By: #### 5 3 #### [facility] [address] [place] [address], [facility] Nucleated RBC/100 WBC (Bld) [Ratio] 0 % Normal 0-0 [facility] Comment on above: Performed By: #### 5 3 #### [facility] [address] [facility] [place] [address], [facility] PLAT CNT 261 10*3/uL Normal 150-400 [facility] Comment on above: Performed By: #### 5 3 #### [facility] [address] [facility] [place] [address], [facility] RBC (Bld) [#/Vol] 4.20 10*6/uL Normal 3.80-5.00 [facility] Comment on above: Performed By: #### 5 0103 #### [facility] [address] [facility]. [address] WBC (Bld) [#/Vol] 6.47 10*3/uL Normal 4.00-10.60 [facility] Comment on above: Performed By: #### 5 0103 #### [facility] [address] [facility] [address] FREE T4on 03-30-2020 Free T4 [Mass/Vol] 1.48 ng/dL Normal 0.71-1.85 [facility] Comment on above: Performed By: #### 1 0070, 05096, 78848, 46163, 87184, 04074 #### [facility] [address] [facility] [address] MAGNESIUM BLOODon 03-30-2020 Magnesium [Mass/Vol] 2.0 mg/dL Normal 1.9-2.7 [facility] Comment on above: Order Comment: No: D o not add to previous draw Performed By: #### 1 0070, 31839, 32859, 75368, 39047, 64689 #### [facility] [address] [facility]. [address] PHOSPHORUS BLOODon 0 Phosphate [Mass/Vol] 2.8 mg/dL Normal 2.5-5.0 [facility] Comment on above: Order Comment: No: D o not add to previous draw Performed By: #### 1 0070, 59436, 05185, 60226, 67087, 43953 #### [facility] [address] PROTHROMBIN TIMEon 0 INR Coag (PPP) [Relative time] 1.21 {INR} High 0.91-1.16 [facility] Comment on above: Order Comment: No: [...] CHEST 1995;108:231S-246S. Performed By: #### 5 7307, 00546 #### [facility] [address] [facility] [address] PT Coag (PPP) [Time] 15.4 s High 12.3-14.8 [facility] Comment on above: Order Comment: No: D o not add to previous draw Result Comment: ALL RESULTS MUST BE INTERPRETED WITH RESPECT TO BLOOD DRAWING ARTIFACT OR DILUTION ERROR OF ANTICOAGULANT AT THE TIME OF SAMPLING. Performed By: #### 5 7307, 52451 #### [facility] [address] [employer]. [address] TROPONIN-Ion 03-30-2020 Troponin I.cardiac [Mass/Vol] 0.02 ng/mL Normal 0.00-0.04 [facility] Comment on above: Order Comment: No: D o not add to previous draw Result Comment: REFE RENCE RANGES: 0.00 - 0.04 ng/ml NORMAL 0.05 - 0.50 ng/ml INDETERMINATE > 0.50 ng/ml CONSISTENT WITH AN M.I. Performed By: #### 1 0070, 61824, 69570, 35747, 89385, 18740 #### [facility] [address] [facility]. [address] Troponin I.cardiac [Mass/Vol] 0.04 ng/mL Normal 0.00-0.04 [facility] Comment on above: Order Comment: No: D o not add to previous draw Result Comment: REFE RENCE RANGES: 0.00 - 0.04 ng/ml NORMAL 0.05 - 0.50 ng/ml INDETERMINATE > 0.50 ng/ml CONSISTENT WITH AN M.I. Performed By: #### 3 5200 #### [facility] [address] Troponin I.cardiac [Mass/Vol] 0.04 ng/mL Normal 0.00-0.04 [facility] Comment on above: Order Comment: No: D o not add to previous draw Result Comment: REFE RENCE RANGES: 0.00 - 0.04 ng/ml NORMAL 0.05 - 0.50 ng/ml INDETERMINATE > 0.50 ng/ml CONSISTENT WITH AN M.I. Performed By: #### 1 0070, 95537, 84007, 16061, 89918, 58505 #### [facility] [address] TSH3 WITH REFLEX FT4on 03-30 TSH 3RD GENERATION 0.02 uIU/mL Low 0.34-5.60 [facility] Comment on above: Performed By: #### 1 0070, 66380, 32141, 47683, 43555, 65182 #### [facility] [address] Vital Signs Date Time Vital Sign Value Performing Clinician Facility 02-17-2025 13:40-0400 Body height 152.4 cm Naseem Carter NP Work Phone: [facility] 02-17-2025 13:40-040 Body mass index (BMI) [Ratio] 20.31 kg/m2 Naseem Carter NP Work Phone: [facility] 02-17-2025 13:40-040 Body weight 47.17 kg Naseem Carter PAIN MANAGEMENT SPECIALIST Work Phone: [facility] 12-04-2024 07:30-0500 Body temperature 97.8 [degF] Tony Amaya MD Work Phone: [facility] 12-04-2024 07:30-0500 Diastolic blood pressure 77 mm[Hg] Tony Amaya MD Work Phone: [facility] 12-04-2024 07:30-0500 Heart rate 88 /min Tony Amaya MD Work Phone: [facility] 12-04-2024 07:30-0500 Respiratory rate 18 /min Tony Amaya MD Work Phone: [facility] 12-04-2024 07:30-0500 SaO2% (BldA) [Mass fraction] 97 % Tony Amaya MD Work Phone: [facility] 12-04-2024 07:30-0500 Systolic blood pressure 120 mm[Hg] Tony Amaya MD Work Phone: [facility] 12-02-2024 14:18-0500 Body height 152.4 cm Tony Amaya MD Work Phone: [facility] 12-02-2024 08:53-0500 Body weight 44.62 kg Tony Amaya MD Work Phone: [facility] 06-13-2024 12:13-0400 Body height 152.3 cm Zoila Monae MD Work Phone: [facility] 06-13-2024 12:13-0400 Body mass index (BMI) [Ratio] 19.98 kg/m2 Zoila Monae MD Work Phone: [facility] 06-13-2024 12:13-0400 Body weight 46.35 kg Zoila Monae MD Work Phone: [facility] 06-13-2024 12:13-0400 Diastolic blood pressure 77 mm[Hg] Zoila Monae MD Work Phone: [facility] 06-13-2024 12:13-0400 Heart rate 74 /min Zoila Monae MD Work Phone: [facility] 06-13-2024 12:13-0400 Systolic blood pressure 107 mm[Hg] Zoila Monae MD Work Phone: [facility] 03-06-2024 13:46-0400 Body height 153.5 cm Zoila Monae MD Work Phone: [facility] 03-06-2024 13:46-0400 Body mass index (BMI) [Ratio] 19.1 kg/m2 Zoila Monae MD Work Phone: [facility] 03-06-2024 13:46-0400 Body temperature 97.2 [degF] Zoila Monae MD Work Phone: [facility] 03-06-2024 13:46-0400 Body weight 45 kg Zoila Monae MD Work Phone: [facility] 03-06-2024 13:46-0400 Diastolic blood pressure 68 mm[Hg] Zoila Monae MD Work Phone: [facility] 03-06-2024 13:46-0400 Heart rate 106 /min Zoila Monae MD Work Phone: [facility] 03-06-2024 13:46-0400 Systolic blood pressure 101 mm[Hg] Zoila Monae MD Work Phone: [facility] 08-12-2022 15:32-0500 Body temperature 98.1 [degF] MD Tony Amaya Work Phone: [facility] 08-12-2022 15:32-0500 Diastolic blood pressure 69 mm[Hg] MD Tony Amaya Work Phone: [facility] 08-12-2022 15:32-0500 Heart rate 78 /min MD Tony Amaya Work Phone: [facility] 08-12-2022 15:32-0500 Respiratory rate 16 /min MD Tony Amaya Work Phone: [facility] 08-12-2022 15:32-0500 SaO2% (BldA) [Mass fraction] 94 % MD Tony Amaya Work Phone: [facility] 08-12-2022 15:32-0500 Systolic blood pressure 129 mm[Hg] MD Tony Amaya Work Phone: [facility] 08-12-2022 11:00-0500 Inhaled oxygen flow rate 3 L/min MD Tony Amaya Work Phone: [facility] 08-11-2022 12:39-0500 Body height 152.4 cm MD Tony Amaya Work Phone: [facility] 08-11-2022 06:00-0500 Body weight 44.9 kg MD Tony Amaya Work Phone: [facility] 08-10-2022 15:03-0500 Body mass index (BMI) [Ratio] 19.1 kg/m2 MD Tony Amaya Work Phone: [facility] 08-03-2022 14:27-0400 Body weight 0 kg MD Tony Amaya Work Phone: [facility] Encounters Encounter Date Encounter Type Care Provider Facility Start: 02-17-2025 End: 02-17-2025 Bamboo flowsheet Naseem Carter PAIN MANAGEMENT SPECIALIST Work Phone: [facility] Start: 02-17-2025 End: 02-17-2025 Bamboo flowsheet Naseem Carter PAIN MANAGEMENT SPECIALIST Work Phone: [facility] Start: 02-17-2025 End: 02-17-2025 ambulatory NASEEM CARTER Not Available Start: 02-17-2025 End: 02-17-2025 Patient encounter procedure Naseem Carter PAIN MANAGEMENT SPECIALIST Work Phone: [facility] Comment on above: Preop examination (P rimary Dx) Start: 02-17-2025 End: 02-17-2025 Preprocedural examination done Naseem Carter PAIN MANAGEMENT SPECIALIST Work Phone: [facility] Work Phone: Start: 02-14-2025 ambulatory [facility] Start: 02-10-2025 End: 02-14-2025 Telephone encounter Jr. Luis Armando Alonzo Zahida DO Work Phone: [facility] Start: 01-29-2025 ambulatory [facility] Start: 01-08-2025 End: 01-08-2025 Bamboo flowsheet JrChen [...] hand Start: 01-07-2025 ambulatory Tony Amaya Facility: [facility] Start: 12-10-2024 End: 12-10-2024 ambulatory [facility] Start: 12-02-2024 Non-patient / Non-visit Perez Amaya MD Work Phone: [facility] Work Phone: Start: 12-01-2024 End: 12-04-2024 Evaluation and management of inpatient Tony Amaya MD Work Phone: [facility] [place] [address] Work Phone: Start: 12-01-2024 Registered Recurring Tony berry MD Work Phone: [facility] Start: 11-29-2024 End: 11-29-2024 ambulatory DARRYL GOODE [facility] Start: 11-28-2024 End: 11-28-2024 Patient encounter procedure Monika Woodett DO Work Phone: [facility] Comment on above: Numbness and tinglin g in left hand Start: 11-28-2024 End: 11-28-2024 ambulatory MONIKA VARGAS Not Available Start: 11-26-2024 End: 11-26-2024 ambulatory Tony Amaya MD Work Phone: [facility] Work Phone: Start: 11-26-2024 End: 11-26-2024 Departed Referred Tony Amaya MD Work Phone: [facility] Start: 11-14-2024 Registered Recurring Tony berry MD Work Phone: [facility] Start: 11-11-2024 End: 11-11-2024 Bamboo flowsheet Zulema Mackay PAIN MANAGEMENT SPECIALIST Work Phone: [facility] Start: 11-11-2024 End: 11-11-2024 Bamboo flowsheet Zulema Smith Aplbill PAIN MANAGEMENT SPECIALIST Work Phone: [facility] Start: 11-11-2024 End: 11-11-2024 ambulatory ZULEMA Smith APLBILL Not Available Start: 11-11-2024 End: 11-11-2024 Office outpatient visit 15 minutes Zulema Mackay PAIN MANAGEMENT SPECIALIST Work Phone: [facility] Comment on [...] Bamboo flowsheet Zulema Smith Apling PAIN MANAGEMENT SPECIALIST Work Phone: [facility] Start: 10-07-2024 End: 10-07-2024 Bamboo flowsheet Zulema Smith Apling PAIN MANAGEMENT SPECIALIST Work Phone: [facility] Start: 10-07-2024 End: 10-07-2024 ambulatory ZULEMA Smith APLING Not Available Start: 10-07-2024 End: 10-07-2024 Office outpatient visit 10 minutes Zulema Mackay PAIN MANAGEMENT SPECIALIST Work Phone: [facility] Comment on above: Closed nondisplaced fracture of base of fifth metacarpal bone of left hand with routine healing, subsequent encounter (Primary Dx); Closed nondisplaced fracture of right patella with routine healing, unspecified fracture morphology, subsequent encounter Start: 09-16-2024 End: 09-16-2024 Bamboo flowsheet Zulema Smith Apling PAIN MANAGEMENT SPECIALIST Work Phone: [facility] Start: 09-16-2024 End: 09-16-2024 Bamboo flowsheet Zulema Smith Apling PAIN MANAGEMENT SPECIALIST Work Phone: [facility] Start: 09-16-2024 End: 09-16-2024 Postop follow up visit related to original px Zulema B Apling PAIN MANAGEMENT SPECIALIST Work Phone: [facility] Comment on above: Closed nondisplaced fracture of base of fifth metacarpal bone of left hand with routine healing, subsequent encounter (Primary Dx); Closed nondisplaced fracture of right patella with routine healing, unspecified fracture morphology, subsequent encounter Start: 09-16-2024 End: 09-16-2024 ambulatory ZULEMA B APLING Not Available Start: 08-19-2024 End: 08-19-2024 Bamboo flowsheet Zulema B Apling PAIN MANAGEMENT SPECIALIST Work Phone: [facility] Start: 08-19-2024 End: 08-19-2024 Bamboo flowsheet Zuelma B Apling PAIN MANAGEMENT SPECIALIST Work Phone: [facility] Start: 08-19-2024 End: 08-19-2024 ambulatory ZULEMA B APLING Not Available Start: 08-19-2024 End: 08-19-2024 Postop follow up visit related to original px Zulema B Apling PAIN MANAGEMENT SPECIALIST Work Phone: [facility] Comment on above: Right elbow pain (Pr imary Dx); Closed nondisplaced fracture of base of fifth metacarpal bone of left hand with routine healing, subsequent encounter Start: 08-07-2024 End: 08-07-2024 Bamboo flowsheet Zulema B Apling PAIN MANAGEMENT SPECIALIST Work Phone: [facility] Start: 08-07-2024 End: 08-07-2024 Bamboo flowsheet Zulema B Apling PAIN MANAGEMENT SPECIALIST Work Phone: [facility] Start: 08-07-2024 End: 08-07-2024 Postop follow up visit related to original px Zulema B Apling PAIN MANAGEMENT SPECIALIST Work Phone: [facility] Comment on above: Closed nondisplaced fracture of right patella with routine healing, unspecified fracture morphology, subsequent encounter (Primary Dx); Right elbow pain Start: 08-07-2024 End: 08-07-2024 ambulatory ZULEMA B APLING Not Available Start: 07-22-2024 End: 07-22-2024 Bamboo flowsheet Zulema B Apling PAIN MANAGEMENT SPECIALIST Work Phone: [facility] Start: 07-22-2024 End: 07-22-2024 Bamboo flowsheet Zulema B Apling PAIN MANAGEMENT SPECIALIST Work Phone: [facility] Start: 07-22-2024 End: 07-22-2024 Office outpatient visit 15 minutes Zulema B Apling PAIN MANAGEMENT SPECIALIST Work Phone: [facility] Comment on above: Left hand pain (Prim isamar Dx); Contusion of dorsum of left hand; Closed nondisplaced fracture of base of fifth metacarpal bone of left hand with routine healing, subsequent encounter Start: 07-22-2024 End: 07-22-2024 ambulatory ZULEMA B APLING Not Available Start: 07-10-2024 End: 07-10-2024 Bamboo flowsheet Zulema B Apling PAIN MANAGEMENT SPECIALIST Work Phone: [facility] Start: 07-10-2024 End: 07-10-2024 Bamboo flowsheet Zulema B Apling PAIN MANAGEMENT SPECIALIST Work Phone: [facility] Start: 07-10-2024 End: 07-10-2024 Office outpatient visit 15 minutes Zulema B Apling PAIN MANAGEMENT SPECIALIST Work Phone: [facility] Comment on above: Closed nondisplaced fracture of right patella, unspecified fracture morphology, initial encounter (Primary Dx); Right knee pain, unspecified chronicity Start: 07-10-2024 End: 07-10-2024 ambulatory ZULEMA B APLING Not Available Start: 06-24-2024 End: 06-24-2024 Bamboo flowsheet Zulema B Apling PAIN MANAGEMENT SPECIALIST Work Phone: [facility] Start: 06-24-2024 End: 06-24-2024 Bamboo flowsheet Zulema B Apling PAIN MANAGEMENT SPECIALIST Work Phone: [facility] Start: 06-24-2024 End: 06-24-2024 Office outpatient visit 25 minutes Zulema B Apling PAIN MANAGEMENT SPECIALIST Work Phone: [facility] Comment on above: Left hand pain (Prim isamar Dx); Right knee pain, unspecified chronicity; Contusion of right knee, initial encounter; Contusion of dorsum of left hand; Left shoulder pain, unspecified chronicity; Arthritis of left acromioclavicular joint; Glenohumeral arthritis, left Start: 06-24-2024 End: 06-24-2024 ambulatory ZULEMA MACKAY Not Available Start: 06-13-2024 End: 06-13-2024 ambulatory ZOILA MONAE Facility:[facility] Start: 06-13-2024 End: 06-13-2024 Patient encounter procedure Zoila Monae MD Work Phone: [facility] Comment on above: Transient neurologic al symptoms (Primary Dx) Start: 06-11-2024 [facility] Start: 06-11-2024 End: 06-11-2024 Subsequent hospital visit by physician Eeg [facility] Work Phone: [facility] EEG Comment on above: Memory deficit [R41. 3] Start: 06-04-2024 End: 06-04-2024 Orders Only Zoila Monae MD Work Phone: [facility] Comment on above: Memory deficit (Prim isamar Dx); Auditory hallucinations; Mentally challenged Start: 05-28-2024 End: 09-19-2024 Telephone encounter Zoila Monae MD Work Phone: [facility] Start: 05-28-2024 End: 05-28-2024 ambulatory [facility] Start: 03-06-2024 End: 03-06-2024 ambulatory TONY AMAYA Facility:[facility] Start: 03-06-2024 End: 03-06-2024 Patient encounter procedure Zoila Monae MD Work Phone: [facility] Comment on above: Memory deficit (Prim isamar Dx); Auditory hallucinations; Mentally challenged Start: 02-20-2024 Emergency department patient visit REGAN ALDANA [facility] Start: 02-20-2024 End: 02-20-2024 Emergency department patient visit CASSANDRA MARICRUZ [facility] Start: 01-03-2023 End: 01-07-2023 Evaluation and management of inpatient DR TONY AMAYA . Facility:[facility] Start: 11-01-2022 End: 11-02-[address] TONY AMAYA . Facility:[facility] Start: 09-30-2022 End: 10-01-[address] ROSALINA RESENDIZ Facility:[facility] Start: 09-02-2022 End: 09-02-2022 ambulatory MD Tony Amaya Work Phone: [facility] Work Phone: Start: 09-02-2022 End: 09-02-2022 Patient encounter procedure MD Tony Amaya Work Phone: [facility] Start: 08-25-2022 End: 08-25-[address] ROSALINA RESENDIZ Facility:[facility] Start: 08-10-2022 End: 08-12-2022 Admission to same day surgery center MD Tony Amaya Work Phone: [facility] Start: 08-10-2022 End: 08-12-2022 ambulatory MD Tony Amaya Work Phone: [facility] Work Phone: Start: 08-08-2022 End: 08-08-2022 ambulatory MD Tony Amaya Work Phone: [facility] Work Phone: Start: 08-08-2022 End: 08-08-2022 Departed Referred MD Tony Amaya Work Phone: [facility] Start: 08-05-2022 End: 08-05-2022 ambulatory MD Tony Amaya Work Phone: [facility] Work Phone: Start: 08-05-2022 End: 08-05-2022 Patient encounter procedure MD Tony Amaya Work Phone: [facility] Start: 07-30-2022 End: 07-30-[address] ROSALINA RESENDIZ Facility:[facility] Start: 07-04-2022 End: 07-06-[address] TONY AMAYA . Facility:[facility] Start: 07-04-2022 End: 07-04-[address] ALBERTO FERRO Facility:[facility] Start: 06-29-2022 Encounter for preprocedural laboratory examination NADEGE GARDNER . [facility] Start: 06-27-2022 End: 06-28-2022 ambulatory NADEGE AGRDNER . Facility:[facility] Start: 06-27-2022 End: 06-28-2022 Encounter [...] Evaluation and management of inpatient EMMY PARIS Facility:[facility] Procedures Date Procedure Procedure Detail Performing Clinician Start: 11-28-2024 End: 11-28-2024 Needle emg ea extremty w/paraspinl area complete Monika Vargas DO Work Phone: Start: 11-26-2024 Urine culture Tony Amaya MD Work Phone: Start: 10-07-2024 Radex hand minimum 3 views Zulema hoffmann PAIN MANAGEMENT SPECIALIST Work Phone: Start: 09-16-2024 Radex hand minimum 3 views Zulema hoffmann PAIN MANAGEMENT SPECIALIST Work Phone: Start: 09-16-2024 Radiologic examination knee 3 views Zulema Mackay PAIN MANAGEMENT SPECIALIST Work Phone: Start: 08-19-2024 Radex hand minimum 3 views Zulema hoffmann PAIN MANAGEMENT SPECIALIST Work Phone: Start: 08-07-2024 End: 08-07-2024 Radex elbow 2 views Zulema Mackay PAIN MANAGEMENT SPECIALIST Work Phone: Start: 07-22-2024 Radex hand minimum 3 views Zulema hoffmann PAIN MANAGEMENT SPECIALIST Work Phone: Start: 06-24-2024 Radiologic examination knee 3 views Zulema Mackay PAIN MANAGEMENT SPECIALIST Work Phone: Start: 06-11-2024 Electroencephalogram w/rec awake&drowsy Zoila Monae MD Work Phone: Start: 06-11-2024 Electroencephalogram w/rec awake&drowsy [facility] Start: 09-02-2022 Plain chest X-ray [...] RSV Vaccine (1 - 1-dose 75+ series) [facility] Start: 02-19-2027 Diabetes Screening Diabetes Screening [facility] Start: 03-11-2025 End: 03-11-2025 Patient encounter procedure 03/11/2025 2:00 PM EDT Office Visit [facility] [address] [place] [address] Chuy Jeter PA [address] [facility] [address] [place] [address] [facility] Start: 02-17-2025 End: 02-17-2025 Patient encounter procedure 02/17/2025 1:30 PM EDT Office Visit [facility] [address] [place] [address] Naseem Carter, PAIN MANAGEMENT SPECIALIST [address] [place] [address] [facility] Start: 02-10-2025 End: 02-10-2025 Patient encounter procedure 02/10/2025 11:00 AM EDT Office Visit [facility] [address] [place] [id number] Naseem Carter, PAIN MANAGEMENT SPECIALIST [address] [place] [address] [facility] Start: 12-04-2024 [facility] Start: 12-01-2024 Hospital admission [facility] Start: 12-01-2024 [facility] Start: 11-26-2024 Urine culture [facility] Start: 11-26-2024 Bacteria identified in Urine by Culture Urine Culture [facility] Start: 11-11-2024 End: 11-11-2024 Patient encounter procedure 11/11/2024 10:00 AM EST Office Visit [facility] [address] [place] [address] Zulema Mackay NP [address] [place] [address] [facility] Start: 11-08-2024 End: 11-08-2024 ambulatory 11/08/2024 12:00 PM EST Treatment [facility] [address] [place] [address] Zehra Bunch, OT [address] [place] [address] [facility] Start: 11-05-2024 End: 11-05-2024 ambulatory 11/05/2024 12:00 PM EST Treatment [facility] [address] [place] [address] Zerha Bunch, OT [address] [place] [address] [facility] Start: 11-01-2024 End: 11-01-2024 ambulatory 11/01/2024 1:00 PM EST Treatment [facility] [address] [place] [address] Zehra Bunch, OT [address] [place] [address] [facility] Start: 10-29-2024 End: 10-29-2024 ambulatory [facility] Comment on above: Arrived Start: 10-25-2024 End: 10-25-2024 ambulatory 10/25/2024 9:00 AM EST Treatment [facility] [address] [place] [address] Zehra Bunch, OT [address] [place] [address] [facility] Start: 10-22-2024 End: 10-22-2024 ambulatory 10/22/2024 1:00 PM EST Evaluation [facility] [address] [place] [address] Zehra Bunch, OT [address] [place] [address] Closed nondisplaced fracture of base of fifth metacarpal bone of left hand with routine healing, subsequent encounter [facility] Comment on above: Closed nondisplaced fracture of base of fifth metacarpal bone of left hand with routine healing, subsequent encounter Start: 10-11-2024 End: 10-11-2024 ambulatory 10/11/2024 1:30 PM EST Evaluation [facility] [address] [place] [address] ZaneFlorina, OT [address] [place] [address] [facility] Start: 10-07-2024 End: 10-07-2024 Patient encounter procedure 10/07/2024 11:15 AM EST Office Visit [facility] [address] [place] [address] Zulema Mackay, PAIN MANAGEMENT SPECIALIST [address] [place] [address] [facility] Start: 09-16-2024 End: 09-16-2024 Patient encounter procedure 09/16/2024 10:00 AM EST Office Visit [facility] [address] [place] [address] Zulema Mackay, PAIN MANAGEMENT SPECIALIST [address] [place] [address] [facility] Start: 08-19-2024 End: 08-19-2024 Patient encounter procedure 08/19/2024 12:30 PM EST Office Visit [facility] [address] [place] [address] Zulema Mackay, PAIN MANAGEMENT SPECIALIST [address] [place] [address] [facility] Start: 08-07-2024 End: 08-07-2024 [...] [address] [place] [address] Zulema Mackay, PAIN MANAGEMENT SPECIALIST [address] [place] [address] Arrived [facility] Comment on above: Arrived Start: 06-24-2024 End: 06-24-2024 Patient encounter procedure 06/24/2024 10:30 AM EDT Office Visit [facility] [address] [facility] [address] [place] [address] Zulema Mackay NP [address] [facility] [address] [place] [address] Left hand pain (Primary Dx); Right knee pain, unspecified chronicity; Contusion of right knee, initial encounter; Contusion of dorsum of left hand; Left shoulder pain, unspecified chronicity; Arthritis of left acromioclavicular joint; Glenohumeral arthritis, left [facility] Comment on above: Left hand pain (Primary Dx); Right knee pain, unspecified chronicity; Contusion of right knee, initial encounter; Contusion of dorsum of left hand; Left shoulder pain, unspecified chronicity; Arthritis of left acromioclavicular joint; Glenohumeral arthritis, left Start: 06-13-2024 End: 06-13-2024 Patient encounter procedure 06/13/2024 12:30 PM EDT Office Visit Neurology [facility] [address] [place] [address] [place] [address] [place] [address] Return in about 3 months (around 06/06/2024) for with Dr. Monae. Neurology [facility] Comment on above: Return in about 3 months (around ) for with Dr. Monae. Start: 06-11-2024 End: 06-11-2024 Patient encounter procedure 06/11/2024 9:00 AM EDT Appointment [facility] [address] [address] Memory deficit [R41.3] [facility] Comment on above: Memory deficit [R41.3] Start: 06-02-2024 Covid-19 Vaccine ( season) Covid-19 Vaccine ( season) [facility] Start: 06-02-2024 Covid-19 Vaccine ( season) Covid-19 Vaccine () [facility] Start: 06-02-2024 Influenza vaccination [facility] Start: 03-29-2024 End: 03-29-2024 Patient encounter procedure 03/29/2024 11:45 AM EDT Office Visit Neurology [address] [place] [address] Memory deficit [R41.3] Neurology Comment on above: Memory deficit [R41.3] Start: 10-02-2023 Behavioral Health Screening Behavioral Health Screening [facility] Start: 06-02-2023 Covid-19 Vaccine ( season) Covid-19 Vaccine () [facility] Start: 08-12-2022 [facility] Start: 08-10-2022 Consultation [facility] Start: 08-10-2022 End: 08-10-2022 [facility] Start: 2014 Pneumococcal Vaccine: 50+ (1 of 1 - PCV) Pneumococcal Vaccine: 50+ (1 of 1 - PCV) [facility] Start: 2014 Shingrix Vaccine (1 of 2) Shingrix Vaccine (1 of 2) [facility] Start: 2009 Lipid panel Lipid Screening [facility] Start: 2009 Screening for malignant neoplasm of colon [facility] Start: 2004 Screening for malignant neoplasm of breast Mammogram Screening [facility] Start: 1994 Screening for malignant neoplasm of cervix HPV Testing [facility] Start: 1985 Screening for malignant neoplasm of cervix [facility] Start: 1983 Urine microalbumin profile DTaP,Tdap,Td Vaccine (1 - Tdap) [facility] Start: 1982 Anxiety Screening Anxiety Screening [facility] Start: 1982 Depression Screening Depression Screening [facility] Start: 1982 Hepatitis C screening Hepatitis C Screening [facility] Start: 1982 HIV screening HIV Screening [facility] Acid Fast Bacilli Cu lture & Smear Acid Fast Bacilli Culture & Smear [facility] Anaerobic microbial culture Anaerobic Culture [facility] Bacteria identified in Urine by Culture Urine Culture [facility] Chlamydia trachomati s [Presence] in Unspecified specimen by Organism specific culture [facility] Work Phone: Chlamydia trachomati s [Presence] in Unspecified specimen by Organism specific culture [facility] EEG EEG NEUROLOGY 12:00 AM EDT [facility] End: 03-06-2025 EPIL EEG ROUTINE EPIL EEG ROUTINE NEUROLOGY Routine Memory deficit Auditory hallucinations 1 Occurrences starting 03/06/2024 until 03/06/2025 [facility] Work Phone: Comment on above: 1 Occurrences starting 03/06/2024 until 03/06/2025 Fungal Culture Result 1 Fungal Culture Re sult 1 [facility] Fungus identified in Unspecified specimen by Culture [facility] Work Phone: Mycobacterium sp identified in Unspecified specimen by Organism specific culture [facility] Work Phone: Mycology Culture Mycology Culture [facility] Patient Education Bipolar disord er - Discharge instructions [facility] Instructions Know your Meds [facility] Work Phone: Patient referral [facility] Work Phone: [facility] Payers Date Payer Category Payer Self-pay 2017 Medicaid [id number] 2017 Medicaid (Managed Care) [facility] MEDICAID [id number] 1964 Unknown [id number] 2.16.840.1.397208.3.579.2. 647 1964 Unknown [id number] 2.16.840.1.508122.3.579.2. 593 1964 Unknown [id number] 2.16.840.1.226022.3.579.2. 593 1964 Unknown [id number] 2.16.840.1.889406.3.579.2. 593 1964 Unknown [id number] 2.16.840.1.923662.3.579.2. 593 1964 Unknown [id number] 2.16.840.1.079136.3.579.2. 593 1964 Unknown [id number] 2.16.840.1.880707.3.579.2. 593 1964 Unknown [id number] 2.16.840.1.911548.3.579.2. 593 1964 Unknown [id number] 2.16.840.1.352700.3.579.2. 593 1964 Unknown [id number] 2.16.840.1.138790.3.579.2. 593 1964 Unknown [id number] 2.16.840.1.047470.3.579.2. 593 1964 Unknown [id number] 2.16.840.1.926692.3.579.2. 593 1964 Unknown [id number] 2.16.840.1.725019.3.579.2. 593 1964 Unknown [id number] 2.16.840.1.607494.3.579.2. 593 1964 Unknown [id number] 2.16.840.1.985661.3.579.2. 593 1964 Unknown [id number] 2.16.840.1.460436.3.579.2. 1258 1964 Unknown [id number] 2.16.840.1.051786.3.579.2. 1258 1964 Unknown [id number] 2.16.840.1.580712.3.579.2. 1258 1964 Unknown [id number] 2.16.840.1.973539.3.579.2. 1258 1964 Unknown [id number] 2.16840.1.032375.3.579.2. 1258 1964 Unknown [id number] 2.840.1.853825.3.579.2. 1258 1964 Unknown [id number] 2.840.1.255723.3.579.2. 1258 1964 Unknown [id number] 2.840.1.119158.3.579.2. 1258 1964 Unknown [id number] 2.840.1.484591.3.579.2. 1258 1964 Unknown [id number] 2.840.1.782621.3.579.2. 1258 1964 Unknown [id number] 2.840.1.284177.3.579.2. 1258 1964 Unknown [id number] 2.840.1.979609.3.579.2. 1258 1964 Unknown [id number] 2.840.1.503813.3.579.2. 1258 1964 Unknown [id number] 2.16840.1.191117.3.579.2. 1258 1964 Unknown [id number] 2.16840.1.370338.3.579.2. 1258 1964 Unknown [id number] 2.16840.1.447090.3.579.2. 1258 1964 Unknown [id number] 2.16.840.1.491913.3.579.2. 1259 1964 Unknown [id number] 2.16.840.1.609758.3.579.2. 9 1964 Unknown [id number] 2.16.840.1.315462.3.579.2. 1259 1964 Unknown [id number] 2.16.840.1.925682.3.579.2. 9 1964 Unknown [id number] 2.16.840.1.969325.3.579.2. 1259 1964 Unknown [id number] 2.16.840.1.949652.3.579.2. 9 1964 Unknown [id number] 2.16.840.1.942267.3.579.2. 9 1964 Unknown [id number] 2.16.840.1.336367.3.579.2. 1259 1959 Self-pay [id number] 1959 Unknown [id number] Medicaid [employer] Medicaid [id number] Unknown [id number] 2.16.840.1.888115.3.579.2. 531 Unknown [id number] 2.16840.1.063790.3.579.2. 531 Unknown [id number] 2.840.1.258845.3.579.2. 531 Social History Date Type Detail Facility Tobacco smoking stat us [facility] Unknown if ever smoked [facility] Work Phone: Start: 1965 Sex Assigned At Female [facility] Start: 08-10-2022 End: 06-24-2024 Tobacco smoking status NHIS Never smoked tobacco (finding) [facility] Start: 03-06-2024 Tobacco smoking status LAIS Tobacco smoking consumption unknown [facility] Start: 03-06-2024 End: 02-17-2025 History of Social function [facility] Start: 03-06-2024 End: 02-17-2025 Area Deprivation Index [facility] National Score (1-10 0), lower number is lower risk 76 [facility] Start: 1965 Sex Assigned At Not on file [facility] Start: 06-24-2024 Tobacco use and exposure Smokeless tobacco non-user [facility] Start: 06-24-2024 End: 02-17-2025 Alcoholic beverage intake Ex-drinker (finding) [facility] Start: 06-21-2024 Gender identity Identifies as female gender (finding) [facility] Start: 06-21-2024 Sexual orientation Heterosexual (finding) [facility] Start: 11-28-2024 End: 12-04-2024 Sex Female (finding) [facility] Medical Equipment Procedure Code Equipment Code Equipment Origin al Text Equipment Identifier Dates Thoracotomy Surgical adhesive/sealant, human-derived ()[id number] FDA Start: 08-10-2022 Goals Date Patient Goal Desired Activity /State Functional Status Date Assessment Result Facility 12-04-2024 Functional status Patient at Baseline [facility] Work Phone: 08-12-2022 Functional status Patient at Baseline [facility] Work Phone: Mental Status Date Assessment Result Facility 12-04-2024 Cognitive function Cognitive Sta tus Patient at Baseline [facility] Work Phone: 08-12-2022 Cognitive function Cognitive Sta tus Patient at Baseline [facility] Work Phone: Clinical Notes 08-10-2022 to 02-17-2025 [...] Daily RT ergocalciferol (Vitamin D-2) 1.25 MG (37288 UT) capsule 1 capsule escitalopram (LEXAPRO) 10 [...] urgent evaluation. Naseem Carter APRN, PAIN MANAGEMENT SPECIALIST-C Naseem Carter NP documented in this encounter [facility] 02-11-2025 Telephone encount er Note Patient can come to [facility] 02/17 at 1:30. [facility] 02-11-2025 Miscellaneous Notes Formattin g of this note might be different from the original. Patient can come to [facility] 02/17 at 1:30. Called patient back, had to leave a voicemail. She does need to come back in for surgery instructions. She can do Monday @ 1:30 if she calls back. Patient called and left vm stating she missed her appt today because she had the flu. Please call patient at [phone]. documented in this encounter [facility] 02-11-2025 Telephone encount er Note Called patient back, had to leave a voicemail. She does need to come back in for surgery instructions. She can do Monday @ 1:30 if she calls back. [facility] 02-10-2025 Telephone encount er Note Patient called and left vm stating she missed her appt today because she had the flu. Please call patient at [phone]. [facility] 01-08-2025 History of Presen t illness Narrative [...] 09/16/24, 08/19/24, 07/22/24 IN EPIC XRAY 06/19/25 @[facility] (L) UE EMG 11/28/24 NO MRI [...] CONTUSION TO (L) HAND ; TAKEN TO [facility] ER - TX WITH NORCO (R) [...] Daily RT ergocalciferol (Vitamin D-2) 1.25 MG (17844 UT) capsule 1 capsule escitalopram (LEXAPRO) 10 [...] is normal. 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 documented in this encounter [facility] 12-04-2024 Discharge summary Note Date/Time December 04, 2024 9:[address] [facility] [address] [place] [address] Discharge Summary Signed Patient: Emigdio Apodaca MR#: [id number] : 1965 Acct:[id number] Age/Sex: 59 / F Adm Date: 5 Loc: Room: [address] [place] [address]: Jaquan Babin MD Copies to: [...] respond. 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 She reports not eating, poor ADLs, not taking her medications and sleeping too much. She denies alcoholor illegal substance abuse. Patient denies hallucinations. Patient did report her sister completed suicide. Of note, patient reports being in [facility] Monday and Monday of last week with [...] them since Monday when she was at [facility] for the flu. She states her diarrhea has improved. She did eat some breakfast this morning but states she is a picky eater. Patient sees Jennifer Beasley counselor in [place]. 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 If at any time you are feeling an increase inyour psychiatric symptoms, call your physician or behavioral healthcare provider. If any time you have thoughts of harming yourself or others contact one of the following: Call (available 24/04) Crisis Text Line (available 24/04) text 4HOPE to [phone] [facility] Hope Line (available 8 a.m. Midnight) call [phone] ([phone]) Instructions: Know your Meds Prescriptions: Continued lamotrigine [...] Patient Comments: 3 days left Follow Up: [facility] [Outside] (established) Tony Amaya MD [Primary [...] <Electronically signed by Jaquan Babin MD> 12/04/24 1003 [facility] Work Phone: 1(362) 736-109403-05-[address] [address] Discharge Summary Signed Patient: Emigdio Apodaca MR#: [id number] : 1965 Acct:[id number] Age/Sex: 59 / F Adm Date: 5 Loc: 1S Room: [address] [place] [address]: Jaquan Babin MD Copies to: [...] respond. 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 She reports not eating, poor ADLs, not taking her medications and sleeping too much. She denies alcoholor illegal substance abuse. Patient denies hallucinations. Patientdid report her sister completed suicide. Of note, patient reports being in [facility] Monday and Monday of last week with [...] them since Monday when she was at [facility] for the flu. She states herdiarrhea has improved. She did eat some breakfast this morning but states she is a picky eater. Patient sees Jennifer Beasley, counselor in [place]. 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 If at anytime you are feeling an increase inyour psychiatric symptoms, call your physician or behavioral healthcare provider. If any time you have thoughts of harming yourself or others contact one of the following: Call (available 24/04) Crisis Text Line (available 24/04) text 4HOPE to [phone] [facility] Hope Line (available 8 a.m. Midnight) call [phone] ([phone]) Instructions: Know your Meds Prescriptions: Continued lamotrigine [...] Patient Comments: 3 days left Follow Up: [facility] [Outside] (established) Tony Amaya MD [Primary Care Provider] - (Call for any medical needs) Exam Physical Exam Vital Signs: Temp Pulse Resp BP Pulse Ox O2 Del Method 98.1 F 78 16 99/66 L 96 Room Air 12/03/24 20:15 12/03/24 20:15 12/03/24 20:15 12/03/24 20:15 12/03/24 20:15 12/03/24 20:15 Documented By: Jaquan Babin MD 12/04/24 1001 Signed By: 12/04/24 [facility]03-04-2025 Progress note Author Jaquan Babin [facility] Note Date/Time December 03, 2024 1:[address] [facility] [address] [place] [address] Psychiatry Progress Note Signed Patient: Emigdio Apodaca MR#: [id number] : 1965 Acct:[id number] Age/Sex: 59 / F Adm Date: 5 Loc: Room: [address] [place] [address] Type : ADM IN Attending Dr: Jaquan [...] <Electronically signed by Jaquan Babin MD> 12/03/[address] [place] [address] Work Phone: 1(689) 712-428003-04-2025 [place] [address] Psychiatry Progress Note Signed Patient: Emigdio Apodaca MR#: [id number] : 1965 Acct:[id number] Age/Sex: 59 / F Adm Date: 5 Loc: Room: [address] [place] [address] Type : ADM IN Attending Dr: Jaquan [...] MD 12/03/24 0939 Signed By: 12/03/24 1411 [facility]03-03-2025 History and physical note Author Jaquan Babin [facility] Note Date/Time December 02, 2024 1:[address] [facility] [address] [place] [address] Psychiatry H&P Signed Patient: Emigdio Apodaca MR#: [id number] : 1965 Acct:[id number] Age/Sex: 59 / F Adm Date: 5 Loc: Room: [address] [place] [address] Type: ADM IN Attending Dr: Jaquan Babin MD Copies to: MD Toyn Dueñas MD~ Date of Service: 12/02/2024 HPI [...] respond. 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 She reports not eating, poor ADLs, not taking her medications and sleeping too much. She denies alcoholor illegal substance abuse. Patient denies hallucinations. Patient did report her sister completed suicide. Of note, patient reports being in [facility] Monday and Monday of last week with [...] them since Monday when she was at [facility] for the flu. She states her diarrhea has improved. She did eat some breakfast this morning but states she is a picky eater. Patient sees Jennifer Beasley, counselor in [place]. 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 [employer] Relationships: Patient identities her mom, Ana, and [...] AVH, HI, SI Insight: limited Judgment: limited [facility] Medical History (Updated 12/02/24 @ 09:21 by [...] <Electronically signed by Jaquan Babin MD> 12/02/24 [facility] Work Phone: 1(988) 538-340703-03-2025 [place] [address] Psychiatry H&P Signed Patient: Emigdio Apodaca MR#: [id number] : 1965 Acct:[id number] Age/Sex: 59 / F Adm Date: 5 Loc: Room: [address] [place] [address] Type: ADM IN Attending Dr: Jaquan Babin MD Copies to: MD Tony Dueñas MD~ Date of Service: 12/02/2024 [facility] History of Present Illness History of present [...] respond. 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 She reports not eating, poor ADLs, not taking her medications and sleeping too much. She denies alcoholor illegal substance abuse. Patient denies hallucinations. Patientdid report her sister completed suicide. Of note, patient reports being in [facility] Monday and Monday of last week with [...] them since Monday when she was at [facility] for the flu. She states her diarrhea has improved. She did eat some breakfast this morning but states she is a picky eater. Patient sees Jennifer Beasley, counselor in [place]. 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 The patient was recently admitted to [facility] (11/25-11/27) after running out of home oxygen [...] Ventricular Rate 02/21/2024 79 (more content not included)...[facility]02-27-2025 History of Present illness Narrative* KATLIN Sal - 11/28/2024 11:00 AM EST Images from the original note were not included. Reason for Appointment: EMG Patient: Emigdio Apodaca : 1965 EMG Computer: [employer] Referring Physician: Zulema Mackay APRN-WALKER EMG: CAITLIN vending manager: Tye Dominguez RT(R) Office Location: [place] Reason for EMG: c/o numbness/tingling in left hand. No hx of DM. Not on blood thinners. Comments: Procedure was explained to the patient who expressed understanding. Patient appeared to have tolerated the test well despite some discomfort due to the nature of the test. documented in this encounterSaint Mary's Hospital of [facility] [id number] History of Present illness Narrative* Zulema Mackay [...] able to walk afterwards, was taken to [facility] ER on 06/19/24 by her partner [...] to the therapist recommending a Neurologist. TX: XR/06/19/24/[facility] LT hand, RT knee, LT shoulder, [facility] ER 06/19/24, norco, IBU, XR NOMS 07/22/24, XRNOMS 08/19/24, XR NOMS 10/07/24, O.T. messi noms RT Knee CT RT knee [facility] 07/05/24 Notes she started taking fosamax in 2023. States her knee is feeling better. 3.5 months Pt had tripped over a sidewalk and Fell landing on her left hand and right knee. DOI 06/19/24, she then hit her chest and rolled over onto her left shoulder hitting her shoulder. She was able to walk afterwards, was taken to [facility] ER on 06/19/24 by her partner [...] was dx with 6 months ago. TX: XR/06/19/24/[facility] LT hand, RT knee, LT shoulder, [facility] ER 06/19/24, norco, IBU, XR NOMS [...] sensation in all fingers documented in this encounterSaint Mary's Hospital of [facility] [id number] History of Present illness Narrative* Zehra Bunch OT - 11/08/2024 12:00 PM EST Occupational Therapy Occupational Therapy Treatment Visit Patient Name: Emigdio Apodaca Today's Date: 11/08/2024 Linked Episodes Type: Episode: Status: Noted: Resolved: Last update: Updated by: Occupational Therapy L 5th digit fracture Active 10/08/2024 11/08/2024 9:28 AM Zehra Bunch OT Comments:Episode created from referral [id number] Visit number: 02/06 Timed Code Treatment minutes: [...] numbness and spasms to the L hand. Coconut Boiler strength has increased to 25# and LP has remained at 5#. Encouraged stretching/ nerve glides at home. Does have a follow upwith ortho on Monday. P: Continue with POC, progress per toleration. documented in this encounterSaint Mary's Hospital of [facility] [id number] History of Present illness Narrative* Zehra Bunch OT - 11/05/2024 12:00 PM EST Occupational Therapy Occupational Therapy Treatment Visit Patient Name: Emigdio Apodaca Today's Date: 11/05/2024 Linked Episodes Type: Episode: Status: Noted: Resolved: Last update: Updated by: Occupational Therapy L 5th digit fracture Active 10/08/2024 11/01/2024 12:46 PM Zehra Bunch OT Comments:Episode created from referral [id number] Visit number: 4 Timed Code Treatment minutes: [...] POC, progress per toleration. documented in this encounterSaint Mary's Hospital of Blue SpringsSfjpowlzlp29-66-8961 Telephone encounter Note* Telephone Encounter - Joanna Boo - 11/01/2024 12:43 PM EST She called noting not feeling well and is cx OT for today. I reminded her, her next on 11/05. She said she'll try to be here; I told her if not feeling better to contact. NOMS [id number] Miscellaneous Notes* Telephone Encounter - Joanna Boo - 11/01/2024 12:43 PM EST She called noting not feeling well and is cx OT for today. I reminded her, her next on 11/05. She said she'll try to be here; I told her if not feeling better to contact. documented in this [facility]01-28-2025 History of Present illness Narrative* Zehra Bunch OT - 10/29/2024 1:00 PM EST Occupational Therapy Occupational Therapy Treatment Visit Patient Name: Emigdio Apodaca Today's Date: 10/29/2024 Linked Episodes Type: Episode: Status: Noted: Resolved: Last update: Updated by: Occupational Therapy L 5th digit fracture Active 10/08/2024 10/28/2024 1:49 PM Zehra Bunch OT Comments:Episode created from referral [id number] Visit number: 12/07 Timed Code Treatment minutes: [...] POC, progress per toleration. documented in this encounterSaint Mary's Hospital of Blue SpringsNjgstdahwt87-91-9031 History of Present illness Narrative* Zehra Bunch OT - 10/25/2024 9:00 AM EST Occupational Therapy Occupational Therapy Treatment Visit Patient Name: Emigdio Apodaca Today's Date: 10/25/2024 Linked Episodes Type: Episode: Status: Noted: Resolved: Last update: Updated by: Occupational Therapy L 5th digit fracture Active 10/08/2024 10/24/2024 11:08 AM Zehra Bunch OT Comments:Episode created from referral [id number] Visit number: 2 Timed Code Treatment minutes: [...] POC, progress per toleration. documented in this encounterSaint Mary's Hospital of Blue [id number] History of Present illness Narrative* Zehra Bunch [...] Amb, Background User Comments:Episode created from referral [id number] Visit number: 1 Subjective Interim History: 59 [...] 5th digit. Strength Strength additional comments: L commercial estimator strength: 15# LP: 5# R commercial estimator strength: 30# LP: 9 Treatment: Education: HEP [...] for light strengthening and ROM at discharge. Community Service Specialist Goals: PRWHE Pain Score < 10/50 ( IE: 33/50) PRWHE Functional Score < 10/100 ( IE:57/100 ) Increase L 5th digit CHAO to 100% pain free in order to complete I/ADL tasks at discharge. Pt to increase commercial estimator strength by 10# and LP by 2# [...] Please sign below. Date: documented in this encounterSaint Mary's Hospital of Blue [id number] Telephone encounter Note* Telephone Encounter - Joanna Boo - 10/08/2024 1:36 PM EST She called back and we scheduled her OT Eval for 1/10 w/ Florina Degroot, OT. [facility] SpringsGqqtlquoav32-71-2639 Miscellaneous Notes* Telephone Encounter - Joanna Boo - 10/08/2024 1:36 PM EST She called back and we scheduled her OT Eval for 1/10 w/ Florina Degroot, OT. * Telephone Encounter - Joanna Boo - 10/08/2024 11:46 AM EST Tried to contact to set-up OT for L hand, but the voicemail is full. documented in this encounterSaint Mary's Hospital of Blue SpringsJilkhwjafu77-65-3964 Telephone encounter Note* Telephone Encounter - Joanna Boo - 10/08/2024 11:46 AM EST Tried to contact to set-up OT for L hand, but the voicemail is full. NOMS [id number] History of Present illness Narrative* Zulema Mackay NP - 10/07/2024 11:15 AM EST Images from the original note were not included. Subjective Patient ID: Emigdio Apodaca is a 59 y.o. female. LT hand 3.5 months s/p LT hand contusion She notes a few days after getting the cast off, she smashed her hand in the car door at [facility]. Here to check ROM Pt had tripped over a sidewalk and Fell landing on her left hand and right knee. DOI 06/19/24, she then hit her chest and rolled over onto her left shoulder hitting her shoulder. She was able to walk afterwards, was taken to [facility] ER on 06/19/24 by her partner [...] able to walk afterwards, was taken to [facility] ER on 06/19/24 by her partner [...] able to walk afterwards, was taken to [facility] ER on 06/19/24 by her partner Pt is RT handed. Hand is stiff and has been getting spasms still between 4th and 5th MC. Denies pain today. Taking TYL for multiple things. Using ice and heat. Has been moving fingers. Good ROM. Intermittent numbness, mostly in thumb. Intermittent swelling. Sometimes wakes at HS. TX: XR/06/19/24/[facility] LT hand, RT knee, LT shoulder, [facility] ER 06/19/24, norco, IBU, XR NOMS 07/22/24, XRNOMS 08/19/24, XR NOMS 10/07/[address] RT knee [facility] 07/05/24 Notes she started taking fosamax in 2023. States her knee is feeling better. 3.5 months Pt had tripped over a sidewalk and Fell landing on her left hand and right knee. DOI 06/19/24, she then hit her chest and rolled over onto her left shoulder hitting her shoulder. She was able to walk afterwards, was taken to [facility] ER on 06/19/24 by her partner [...] XR/06/19/24/[facility] LT hand, RT knee, LT shoulder, [facility] ER 06/19/24, norco, IBU, XR NOMS 06/24, CT [facility]1, XR NOMS 08/07/24 RT elbow Pt notes she fell on 08/04/23 and hit her right elbow. centrifugal casting machine tender to the touch, medial elbow. TX: [...] Capillary refill: <3 sec documented in this encounterSaint Mary's Hospital of Blue [id number] History of Present illness Narrative* Zulema Mackay [...] able to walk afterwards, was taken to [facility] ER on 06/19/24 by her partner [...] today, goes to 5-6/10 with spasms. TX: XR/06/19/24/[facility] LT hand, RT knee, LT shoulder, [facility] ER 06/19/24, norco, IBU, XR NOMS [...] able to walk afterwards, was taken to [facility] ER on 06/19/24 by her partner [...] was dx with 6 months ago. TX: XR/06/19/24/[facility] LT hand, RT knee, LT shoulder, [facility] ER 06/19/24, norco, IBU, XR NOMS [...] Capillary refill: <3 sec documented in this encounterSaint Mary's Hospital of Blue SpringsJchzupxldp03-11-3716 History of Present illness Narrative* Zulema Mackay [...] able to walk afterwards, was taken to [facility] ER on 06/19/24 by her partner [...] numbness in the thumb. Denies swelling. TX: XR/06/19/24/[facility] LT hand, RT knee, LT shoulder, [facility] ER 06/19/24, norco, IBU, XR NOMS [...] base of 5th MC fracture. Zulema Mackay MATRIX INSPECTOR Assessment/Plan Encounter Diagnoses: ICD-10-CM 1. Right elbow [...] of the left hand documented in this encounterSaint Mary's Hospital of Blue [id number] History of Present illness Narrative* Zulema Mackay NP - 08/07/2024 11:00 AM EST Images from the original note were not included. Subjective Patient ID: Emigdio Apodaca is a 58 y.o. female. RT Knee CT RT knee [facility] 07/05/24 Notes she started taking fosamax [...] able to walk afterwards, was taken to [facility] ER on 06/19/24 by her partner [...] was dx with 6 months ago. TX: XR/06/19/24/[facility] LT hand, RT knee, LT shoulder, [facility] ER 06/19/24, norco, IBU, XR NOMS [...] healing non displaced patella fracture Zulema Mackay MATRIX INSPECTOR XR elbow 1 or 2 views right Imaging Result: Xrays AP and LAT of the right elbow performed on August 07, 2024 demonstrates no swelling, no fractures appreciated, joint congruent. Impression Unremarkable xrays of the right elbow Zulema Mackay MATRIX INSPECTOR Assessment/Plan Encounter Diagnoses: ICD-10-CM 1. Closed nondisplaced [...] how she is doing. documented in this encounterSaint Mary's Hospital of Blue [id number] History of Present illness Narrative* Zulema Mackay [...] able to walk afterwards, was taken to [facility] ER on 06/19/24 by her partner Pt is RT handed. MC block cast intact. Pain is between LF and RF. Pain at rest 5/10, with activities (worse at night) 8/10. She is taking motrin prn for the pain. Admits constant numbness in the thumb. Denies swelling. TX: XR/06/19/24/[facility] LT hand, RT knee, LT shoulder, [facility] ER 06/19/24, norco, IBU, XR NOMS [...] Healing 5th MC base fracture. Zulema Mackay MATRIX INSPECTOR Assessment/Plan Encounter Diagnoses: ICD-10-CM 1. Left hand [...] of the left hand documented in this encounterSaint Mary's Hospital of Blue [id number] History of Present illness Narrative* Zulema Mackay NP - 07/10/2024 12:15 PM EDT Images from the original note were not included. Subjective Patient ID: Emigdio Apodaca is a 58 y.o. female. RT Knee CT RT knee [facility] 07/05/24 3 weeks ago, Pt had tripped over a sidewalk and Fell landing on her left hand and right knee. DOI 06/19/24, she then hit her chest and rolled over onto her left shoulder hitting her shoulder. She was able to walk afterwards, was taken to [facility] ER on 06/19/24 by her partner [...] was dx with 6 months ago. TX: XR/06/19/24/[facility] LT hand, RT knee, LT shoulder, H ER 06/19/24, norco, IBU, XR NOMS 06/24, CT [facility] Objective Ortho Exam Knee Musculoskeletal Exam Gait Limp: right Inspection Right Erythema: none Effusion: mild Edema: none Ecchymosis: none Deformity: none Alignment: normal Palpation Right Tenderness: present Tenderness comment: over patella Range of Motion Range of motion additional comments: Not tested due to fracture I reviewed the ct of the right knee done at [facility] on 07/05/24 reveals a non displaced [...] or polycentric), positional orthosis, rigid support, prefabricated, [id number] knee brace. Brace is locked at 0 [...] wbat in the brace documented in this encounterSaint Mary's Hospital of Blue [id number] History of Present illness Narrative* Zulema Mackay [...] able to walk afterwards, was taken to [facility] ER on 06/19/24 by her partner [...] w/o relief. Admits waking at night. TX: XR/06/19/24/[facility] LT hand, RT knee, LT shoulder, [facility] ER 06/19/24, norco, IBU, RT Knee [...] was dx with 6 months ago. TX: XR/06/19/24/[facility] LT hand, RT knee, LT shoulder, [facility] ER 06/19/24, norco, IBU, XR NOMS [...] xrays of the left hand done at [facility] on 06/19/24 reveals possible 5th MC fracture. I reviewed the xrays of the right knee and reveals possible patella fracture. I reviewed the xrays of the left shoulder and reveals AC and GH arthritis, no fractures noted. I reviewed [facility] ER report from 06/19/24 in addtion, [...] of the left hand documented in this encounterSaint Mary's Hospital of Blue [id number] History of Present illness Narrative* Zoila Monae MD - 06/13/2024 12:30 PM EDT [facility] Follow up/ Established patient visit Individuals who were included in, or assisted with the encounter were: Emigdio Apodaca Zoila Monae MD Chief Complaint/Issues: Emigdio Apodaca is a 58 year old female seen in the [facility] for: Staring [...] that she can have it done in [place] but she would rather come here. She [...] which included preparing to see the patient, [id number] patient care, completing clinical documentation, obtaining and/or reviewing separately obtained history, performing a medically appropriate examination, counseling and educating the pat ient/family/caregiver, ordering medications, tests, or procedures, communicating with other HCPs (not separately reported), and communicating results to the patient/family/caregiver. Zoila Monae MD documented in this encounterHighland [facility] NoteHNO ID: [id number] Author: ZOILA MONAE MD Service: ? Author Type: Physician Type: Progress Notes Filed: 06/13/2024 13:41 Note Text: [facility] Follow up/ Established patient visit Individuals who were included in, or assisted with the encounter were: Emigdio Apodaca Zoila Monae MD Chief Complaint/Issues: Emigdio Apodaca is a 58 year old female seen in the [facility] for: Staring [...] that she can have it done in [place] but she would rather come here. She [...] Take 100 mg b (more content not included)...[facility]09-10-2024 NoteHNO ID: [id number] Author: NARCISA YUSUF MD Service: Neurology General Author Type: Physician Type: Procedures Filed: 06/13/2024 13:25 Note Text: [facility] - Electroencephalogram EMIGDIO APODACA : 1965 AGE: 58 SEX: F CSN: [id number] [facility] SVC: LOCATION: ATTENDING PHYSICIAN: DATE OF PROCEDURE: [...] have been noted. Narcisa Yusuf M.D. Neurology [id number] Telephone encounter Note* Telephone Encounter - Zoila Monae MD - 06/04/2024 1:21 PM EDT A new neuropsych order has been put in. Thanks Zoila Monae MD [facility] Work Phone: [phone] 878-159909-03-2024 Miscellaneous Notes* Telephone Encounter - Zoila Monae MD - 06/04/2024 1:21 PM EDT A new neuropsych order has been put in. Thanks Zoila Monae MD [facility] NoteHNO ID: [id number] Author: ZOILA MONAE MD Service: ? Author Type: Physician Type: Progress Notes Filed: 06/04/2024 13:22 Note Text: Neuropsychology order had when they tried to get her in. A new order has been put in and good for a year. Zoila Monae [facility]09-03-2024 History of Present illness Narrative* Zoila Monae MD - 06/04/2024 1:18 PM EDT Neuropsychology order had when they tried to get her in. A new order has been put in and good for a year. Zoila Monae MD [facility] Telephone encounter Note * Telephone Encounter - Iveth Salazar - 05/28/2024 9:17 AM EDT Call center called the office on patients behalf stating they tried to schedule NEUROPSYCHOLOGICAL TESTING CONSULT But the test is booking out further than the active request. Would need it re ordered for scheduling. [facility]08-27-2024 Miscellaneous Notes* Telephone Encounter - Kyle Salazaryssa - 05/28/2024 9:17 AM EDT Call center called the office on patients behalf stating they tried to schedule NEUROPSYCHOLOGICAL TESTING CONSULT But the test is booking out further than the active request. Would need it re ordered for scheduling. [facility] History of Present illness Narrative* Zoila Monae MD - 03/06/2024 2:00 PM EDT Images from the original note were not included. [facility] General Neurology New Patient Evaluation Consulting Provider: Tony Amaya [facility] [address] The patient presents with a chief complaint [...] year old Rh female seen in the [facility] for: Cognitive [...] for low IQ. She worked in a [employer] shop and only worked 6 months. She [...] and no carotid or cranial bruit auscultated [place] Cognitive Assessment (MoCA) Version 1 Total Score: 17/30 Visuospatial/Executive Alternating Kiel Making: Patient successfully draws the pattern without [...] fabric' (0) Word 3: Required multiple choice- 'denominational, school, hospital' (0) Word 4: Required category [...] Abnormal ECG COPD (chronic obstructive pulmonary disease) ([facility]/HCC) Hyperlipidemia Past Surgical History: Procedure Laterality [...] signed: Karthikeyan Linn. Outside Data/Labs: 01/2024 at [facility]: Tox screen negative, Etoh negative, CBC is normal, CMP is normal, Folate 34, B12 148, TSH 0.01 IMPRESSION: Unremarkable intracranial CT angiogram. Unremarkable unenhanced CT of the brain. Unremarkable extracranial CT angiogram Subjective Patient-Entered Data: 03/04/24 - GENERAL NEUROLOGY SCORES I spent a total of 55 minutes on the date of the service which included preparing to see the patient, [id number] patient care, completing clinical documentation, obtaining and/or reviewing separately obtained history, performing a medically appropriate examination, counseling and educating the pat ient/family/caregiver, ordering medications, tests, or procedures, communicating with other HCPs (not separately reported), and communicating results to the patient/family/caregiver. Zoila Monae MD documented in this encounterHigh[facility]06-05-2024 NoteHNO ID: [id number] Author: ZOILA MONAE MD Service: ? Author Type: Physician Type: Progress Notes Filed: 03/06/2024 15:39 Note Text: [facility] New Patient Evaluation Consulting Provider: Tony Amaya [address] [facility] [address] The patient presents with a chief complaint [...] year old Rh female seen in the [facility] for: Cognitive [...] for low IQ. 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 She [...] and no carotid or cranial bruit auscultated [place] Cognitive Assessment (MoCA) Version 1 Total Score: 17/30 Visuospatial/Executive Alternating Kiel Making: Patient successfully draws the (more content not included)...[facility]05-21-2024 NoteProcedure ECG 12 lead Performed by: Regan Aldana NP Authorized by: Cassandra Alcantraa MD ECG interpreted by ED Physician in the absence of a silk snapper: yes Rate: ECG rate: 79 ECG rate assessment: normal Rhythm: Rhythm: sinus rhythm and paced Pacing: Capture: Complete Type of pacing: Atrial Ectopy: Ectopy: none QRS: QRS axis: Normal QRS intervals: Normal QRS conduction: normal ST segments: ST segments: Normal T waves: T waves: normal Regan Aldana NP 02/20/24 1907[facility] History and physical note Author Rodolfo Harley [facility] August 12, 2022 1:45pm Note Date/Time August 04, 2022 3 :52pm [facility] [address] [place] [address] Cardiothoracic Surgery H&P Signed Patient: Emigdio Apodaca MR#: [id number] : 1965 Acct:[id number] Age/Sex: 56 / F Adm Date: 2 Loc: [place] Room: Type: PRE SDC Attending Dr: Rodolfo [...] IgG IgM and IgA were all negative. Anti-HI-3 antibodies were 5.0. ?P ANCA was 1:80. [...] 2020 in the left chest from a silk snapper at [facility] patient was unable to remember, right [...] patient had normal TSHlevel on 07/04/22 from [facility]. We will give 100 mg of IV Solu-Cortef on-call to the OR. We will utilize vancomycin and Levaquin given the questionable history of penicillin allergy with hives as a baby, although she states she recently had penicillin without issues. Documented By: Rodolfo Harley MD 08/04/22 1223 Signed By: <Electronically signed by MD Rodolfo Harley> 08/12/22 1345 [facility] Work Phone: 1(441) 747-274911-11-2022 Hospital Discharge instructionsAmbulatory Orders* Initiate Home Health Time Frame: 08/12/22, Location: Determined By Patient Additional Instructions no lifting 5-10 lbs. Continue Peridex mouthwash. May remove dressing tomorrow. Daily showers with Betasept wash. No driving.[facility] Work Phone: 1(377) 515-618111-11-2022 Progress note Author Monika Meza [facility] August 12, 2022 11:59am Note Date/Time August 12, 2022 8:13am [facility] [address] [place] [address] Pulmonology Progress Note Signed Patient: Emigdio Apodaca MR#: [id number] : 1965 Acct:[id number] Age/Sex: 56 / F Adm Date: 2 Loc: Room: [address] [place] [address] Type: REG SDC Attending Dr: Rodolfo Harley [...] <Electronically signed by MD Monika Meza> 08/12/22 5662 [facility] Work Phone: 1(980) 583-437411-10-2022 Progress note Author Monika Meza [facility] August 11, 2022 10:07am Note Date/Time August 11, 2022 7:43am [facility] [address] [place] [address] Pulmonology Progress Note Signed Patient: Emigdio Apodaca MR#: [id number] : 1965 Acct:[id number] Age/Sex: 56 / F Adm Date: 2 Loc: Room: [address] [place] [address] Type: REG SDC Attending Dr: Rodolfo Harley [...] <Electronically signed by MD Monika Meza> 08/11/[address] [place] [address] Work Phone: 1(638) 264-441211-09-2022 Consult note Author Monika Meza [facility] August 10, 2022 5:46pm Note Date/Time August 10, 2022 5 :41pm [facility] [address] [place] [address] Pulmonology Consult Note Signed Patient: Emigdio Apodaca MR#: [id number] : 1965 Acct:[id number] Age/Sex: 56 / F Adm Date: 2 Loc: Room: [address] [place] [address] [facility]: Rodolfo Harley MD Copies [...] followed by Dr. Nadege Gardner at [place] with complaints of dyspnea on exertion as [...] signed by MD Monika Meza> 08/10/22 1746 [facility] Work Phone: Evaluation noteNo assessment information available [facility] Work Phone: Evaluation note* Diagnosis Onset Date Resolution Status Bipolar 1 disorder acute Bronchiectasis acute Hypercholesteremia acute Hypothyroidism acute Interstitial lung disease ac [facility] Work Phone: Evaluation note* Diagnosis Onset Date Resolution Status Bipolar 1 disorder acute Hypercholesteremia acute Hypothyroidism acute Interstitial lung disease ac [place] Bipolar 1 disorder acute Bronchiectasis acute Hypercholesteremia acute Hypothyroidism acute Interstitial lung disease ac [facility] Work Phone: Evaluation note* Diagnosis Memory deficit- Primary Memory loss Auditory hallucinations Hallucinations Mentally challenged Unspecified intellectual disabilities [facility] Memory deficit- Primary Memory loss Auditory hallucinations Hallucinations Mentally challenged Unspecified intellectual disabilities [facility] Diagnosis Memory deficit Memory loss Auditory hallucinations Hallucinations [facility] Diagnosis Transient neurological symptoms- Primary [facility] Diagnosis Closed nondisplaced fracture of right patella, unspecified fracture morphology, initial encounter- Primary Right knee pain, unspecified chronicity documented in this encounter [facility]* Diagnosis Left hand pain- Primary Pain in soft tissues of limb Contusion of dorsum of left hand Closed nondisplaced fracture of base of fifth metacarpal bone of left hand with routine healing, subsequent encounter documented in this encounter [facility]* Diagnosis Right elbow pain- Primary Pain in joint, upper arm Closed nondisplaced fracture of base of fifth metacarpal bone of left hand with routine healing, subsequent encounter documented in this encounter [facility]* Diagnosis Closed nondisplaced fracture of right patella with routine healing, unspecified fracture morphology, subsequent encounter- Primary Right elbow pain Pain in joint, upper arm documented in this encounter [facility]* Diagnosis Left hand pain- Primary Pain in soft tissues of limb Right knee pain, unspecified chronicity Contusion of right knee, initial encounter Contusion of dorsum of left hand Left shoulder pain, unspecified chronicity 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, left documented in this encounter [facility]* Diagnosis Closed nondisplaced fracture of base of fifth metacarpal bone of left hand with routine healing, subsequent encounter- Primary Closed nondisplaced fracture of right patella with routine healing, unspecified fracture morphology, subsequent encounter documented in this encounter [facility]* Diagnosis Closed nondisplaced fracture of base of fifth metacarpal bone of left hand with routine healing, subsequent encounter- Primary Closed nondisplaced fracture of right patella with routine healing, unspecified fracture morphology, subsequent encounter documented in this encounter [facility]* Diagnosis Finger stiffness, left- Primary Closed nondisplaced fracture of base of fifth metacarpal bone of left hand with routine healing, subsequent encounter documented [facility] this encounter [facility]* Diagnosis Finger stiffness, left- Primary documented in this encounter [facility] note* Diagnosis Finger stiffness, left- Primary documented in this encounter [facility]* Diagnosis Finger stiffness, left- Primary documented in this encounter [facility]* Diagnosis Finger stiffness, left- Primary Closed nondisplaced fracture of base of fifth metacarpal bone of left hand with routine healing, subsequent encounter- Primary Closed nondisplaced fracture of right patella with routine healing, unspecified fracture morphology, subsequent encounter documented in this encounter [facility]* Diagnosis Closed nondisplaced fracture of base of fifth metacarpal bone of left hand with routine healing, subsequent encounter- Primary Closed nondisplaced fracture of right patella with routine healing, unspecified fracture morphology, subsequent encounter Numbness and tingling in left hand Disturbance of skin sensation documented in this encounter [facility] note* Diagnosis Numbness and tingling in left hand Disturbance of skin sensation documented in this encounter [facility]* Diagnosis Carpal tunnel syndrome on left- Primary Carpal tunnel syndrome Pain in left hand documented in this encounter [facility] note* Diagnosis Preop examination- Primary Unspecified pre-operative examination documented in this encounter [facility] HealthcareReason for referral (narrative)* Outpatient Procedure (Routine) - Authorized Specialty Diagnoses / Procedures Referred By Contac t Referred To [facility] Diagnoses Memory deficit Auditory hallucinations Procedures EPIL EEG ROUTINE ELECTROENCEPHALOGRAM REC COMA/[place] [address] [place] [address] [place] [address] Referral ID Status Reason Start Date Expiration Date Visits Requested Visits Authorized [id number] Authorized Auto-Generat ed Referral 03/06/2024 03/06/2025 1 [...] EA ADDL 30 [place] [address] [address] [id number] Referral ID Status Reason Start Date Expiration Date Visits Requested Visits Authorized [id number] Ref Not Required PCP Requested Referral 03/06/2024 06/04/2024 1 3 [facility] for referral (narrative)* Outpatient Procedure (Routine) - Closed Specialty Diagnoses / Procedures Referred By Contac t Referred To Contact [facility] Diagnoses Memory deficit Auditory hallucinations Procedures EPIL EEG ROUTINE ELECTROENCEPHALOGRAM REC COMA/[place] [address] [id number] [place] [address] Referral ID Status Reason Start Date Expiration Date V isits Requested Visits Authorized [id number] Closed Auto-Generate d Referral 03/06/2024 03/06/2025 1 1 [facility] for visit Narrative* Outpatient Procedure (Routine) - Closed Specialty Diagnoses / Procedures Referred By Contac t Referred To Contact [facility] Diagnoses Memory deficit Auditory hallucinations Procedures EPIL EEG ROUTINE ELECTROENCEPHALOGRAM REC COMA/[place] [address] [id number] [place] [address] Referral ID Status Reason Start Date Expiration Date V isits Requested Visits Authorized [id number] Closed Auto-Generate d Referral 03/06/2024 03/06/2025 1 1 [facility] for visit Narrative* Consultation (Routine) - Authorized Specialty Diagnoses / Procedures Referred By Contac t Referred To Contact Occupational Therapy / Physical Therapy Diagnoses Closed nondisplaced fracture of base of fifth metacarpal bone of left hand with routine healing, subsequent encounter Procedures HI OFFICE/OUTPATIENT NEW HIGH MDM 60 MINUTES Apling, Zulema B, PAIN MANAGEMENT SPECIALIST [address] [place] [address] Phone: tel: fax:[phone] Zehra Bunch, OT [address] [place] [address] Phone: tel:[phone] fax:[phone] Referral ID Status Reason Start Date Expiration Date Visits Requested Visits Authorized [id number] Authorized Consult and Treat 10/07/2024 04/05/2025 8 8 [facility] Narrative* Consultation (Routine) - Authorized Specialty Diagnoses / Procedures Referred By Chris cadena Referred To Contact Occupational Therapy / Physical Therapy Diagnoses Closed nondisplaced fracture of base of fifth metacarpal bone of left hand with routine healing, subsequent encounter Procedures HI OFFICE/OUTPATIENT NEW HIGH MDM 60 MINUTES Zulema Mackay NP [address] [facility] [address] [place] [address] Phone: tel: fax: Zehra Bunch, OT [address] [place] [address] Phone: tel:[phone] fax:[phone] Referral ID Status Reason Start Date Expiration Date Visits Requested Visits Authorized [id number] Authorized Consult and Treat 10/07/2024 10/01/2025 8 8 [facility] Narrative* Consultation (Routine) - Closed Specialty Diagnoses / Procedures Referred By Chris cadena Referred To Contact Neurology Diagnoses Numbness and tingling in left hand Procedures HI OFFICE/OUTPATIENT NEW HIGH MDM 60 MINUTES Zulema Mackay, PAIN MANAGEMENT SPECIALIST fax: Monika Vargas, [address] [place] [address] Phone: tel: fax: Referral ID Status Reason Start Date Expiration Date V isits Requested Visits Authorized [id number] Closed Specialty Services Required 11/11/2024 05/10/2025 1 [...] Course Note MR#: [id number] I [facility] Pt. Name: Emigdio Apodaca Admitted: [...] EA ADDL 30 [place] [address] [place] [address] Referral ID Status Reason Start Date Expiration Date Visits Requested Visits Authorized [id number] Ref Not Required PCP Requested Referral 06/04/2024 09/02/2024 1 3 Additional Source Comments INFORMATION SOURCE (unrecogn ized section and content) DATE CREATED AUTHOR 04/23/2020 [facility] DATE CREATED AUTHOR AUTHOR'S ORGANIZ ATION 01/07/2023 [facility] DATE CREATED AUTHOR AUTHOR'S ORGANIZ ATION 06/15/2024 [facility] DATE CREATED AUTHOR AUTHOR'S ORGANIZ ATION 09/22/2024 [facility] DATE CREATED AUTHOR AUTHOR'S ORGANIZ ATION 01/08/2025 [facility] DATE CREATED AUTHOR AUTHOR'S ORGANIZ ATION 02/15/2025 [facility] DATE CREATED AUTHOR AUTHOR'S ORGANIZ ATION 02/18/2025 [facility] EPIC Care Teams (unrecognized [...] MD Attending Provider Active Allyssa Washburn APRN [facility]- Other Provider Active Jonah Badillo MD Other [...] Active Rodolfo Harley MD Attending Provider Active Scientific Affairs Manager Relationship Specialty Start Date End Date Tony Amaya MD [address] [place] [address] Referring Family Medicine 02/09/24 Scientific Affairs Manager Relationship Specialty Start Date End Date Tony Amaya MD [address] [place] [address] Referring Family Medicine 02/09/24 Scientific Affairs Manager Relationship Specialty Start Date End Date Tony Amaya MD [address] [place] [address] Referring Family Medicine 02/09/24 Scientific Affairs Manager Relationship Specialty Start Date End Date Tony Amaya MD [address] [place] [address] Referring Family Medicine 02/09/24 Scientific Affairs Manager Relationship Specialty Start Date End Date Tony Amaya MD [address] [place] [address] PCP - General Family Medicine 06/13/24 Tony Amaya MD [address] [place] [address] Referring Family Medicine 02/09/24 Scientific Affairs Manager Relationship Specialty Start Date End Date Tony Amaya MD [address] [place] [address] PCP - General Family Medicine 06/24/24 Scientific Affairs Manager Relationship Specialty Start Date End Date Tony Amaya MD [address] [place] [facility] [place] [address] PCP - General Family Medicine 06/24/24 Scientific Affairs Manager Relationship Specialty Start Date End Date Tony Amaya MD [address] [place] [facility] [place] [address] PCP - General Family Medicine 06/24/24 Scientific Affairs Manager Relationship Specialty Start Date End Date Tony Amaya MD [address] [place] [facility] [place] [address] PCP - General Family Medicine 06/24/24 Scientific Affairs Manager Relationship Specialty Start Date End Date Tony Amaya MD [address] [place] [facility] [place] [address] PCP - General Family Medicine 06/24/24 Scientific Affairs Manager Relationship Specialty Start Date End Date Tony Amaya MD [address] [place] [facility] [place] [address] PCP - General Family Medicine 06/24/24 Scientific Affairs Manager Relationship Specialty Start Date End Date Tony Amaya MD [address] [place] [facility] [place] [address] PCP - General Family Medicine 06/24/24 Scientific Affairs Manager Relationship Specialty Start Date End Date Tony Amaya MD [address] [place] [facility] [place] [address] PCP - General Family Medicine 06/24/24 Scientific Affairs Manager Relationship Specialty Start Date End Date Tony Amaya MD [address] [place] [facility] [place] [address] PCP - General Family Medicine 06/24/24 Scientific Affairs Manager Relationship Specialty Start Date End Date Tony Amaya MD [address] [place] [facility] [place] [address] PCP - General Family Medicine 06/13/24 Tony Amaya MD [address] [place] [facility] [place] [address] Referring Family Medicine 02/09/24 Scientific Affairs Manager Relationship Specialty Start Date End Date Tony Amaya MD [address] [place] [facility] [place] [address] PCP - General Family Medicine 06/24/24 Scientific Affairs Manager Relationship Specialty Start Date End Date Tony Amaya MD [address] [place] [facility] [place] [address] PCP - General Family Medicine 06/24/24 Scientific Affairs Manager Relationship Specialty Start Date End Date Tony Amaya MD [address] [place] [facility] [place] [address] PCP - General Family Medicine 06/24/24 Scientific Affairs Manager Relationship Specialty Start Date End Date Tony Amaya MD [address] [place] [facility] [place] [address] PCP - General Family Medicine 06/24/24 Scientific Affairs Manager Relationship Specialty Start Date End Date Tony Amaya MD [address] [place] [facility] [place] [address] PCP - General Family Medicine 06/24/24 Scientific Affairs Manager Relationship Specialty Start Date End Date Tony Amaya MD [address] [place] [facility] [place] [address] PCP - General Family Medicine 06/24/24 Scientific Affairs Manager Relationship Specialty Start Date End Date Tony Amaya MD [address] [place] [facility] [place] [address] PCP - General Family Medicine 06/24/24 Scientific Affairs Manager Relationship Specialty Start Date End Date Tony Amaya MD [address] [place] [facility] [place] [address] PCP - General Family Medicine 06/24/24 Scientific Affairs Manager Relationship Specialty Start Date End Date Tony Amaya MD [address] [place] [facility] [place] [address] PCP - General Family Medicine 06/24/24 Scientific Affairs Manager Relationship Specialty Start Date End Date Tony Amaya MD [address] [place] [facility] [place] [address] PCP - General Family Medicine 06/24/24 Scientific Affairs Manager Relationship Specialty Start Date End Date Tony Amaya MD [address] [place] [facility] [place] [address] PCP - General Family Medicine 06/24/24 Team Status: Active Member Role Status Dates Tony Amaya MD Primary Care Provider Active Start: November 14, 2024 Alejandro Maciel MD Attending Provider Active Start: November 14, 2024 Team Status: Inactive Member Role Status Dates Tony Amaya MD Attending Provider Active Sta rt: November 26, 2024 End: November 26, 2024 Scientific Affairs Manager Relationship Specialty Start Date End Date Tony Amaya MD [address] [place] [facility] [place] [address] PCP - General Family Medicine 06/24/24 Team [...] Other Provider Active Start: December 02, 2024 Scientific Affairs Manager Relationship Specialty Start Date End Date Tony Amaya MD PCP - General Family Medicine 06/24/24 Scientific Affairs Manager Relationship Specialty Start Date End Date Tony Amaya MD PCP - General Family Medicine 06/24/24 Scientific Affairs Manager Relationship Specialty Start Date End Date Tony [...] or prosecute any alcohol or drug abuse patient.[facility] the event this information is protected by the Federal Confidentiality of Alcohol and Drug Abuse Patient Records regulations: The Federal rules restrict any use of the information to criminally investigate or prosecute any alcohol or drug abuse patient.[facility] the event this information is protected by the Federal Confidentiality of Alcohol and Drug Abuse Patient Records regulations: The Federal rules restrict any use of the information to criminally investigate or prosecute any alcohol or drug abuse patient.[facility] the event this information is protected by the Federal Confidentiality of Alcohol and Drug Abuse Patient Records regulations: The Federal rules restrict any use of the information to criminally investigate or prosecute any alcohol or drug abuse patient.[facility] the event this information is protected by the Federal Confidentiality of Alcohol and Drug Abuse Patient Records regulations: The Federal rules restrict any use of the information to criminally investigate or prosecute any alcohol or drug abuse patient.[facility] the event this information is protected by the Federal Confidentiality of Alcohol and Drug Abuse Patient Records regulations: The Federal rules restrict any use of the information to criminally investigate or prosecute any alcohol or drug abuse patient.[facility] Reason for Visit (unrecogniz ed section [...] BE BASED ON THE PRIMARY CLINICAL RECORDS. [facility]. provides no warranty or guarantee of the accuracy or completeness of information in this document.
--- OUTSIDE RECORDS SUMMARY | 2025-02-20 00:10 | XMS_ITS | Clinical Summary ---
Author Organization [facility] Address [address] [place] [address] Care Team Providers Care Sales Facilitator Name Role Phone Paulo Turner MD Primary Care Provider [phone] Allergies Active Allergy Reactions Criticality Noted Date Comments Codeine 08/10/2022 Other Reaction(s): Nausea Erythromycin Base 08/05/2022 Other Reaction(s): Unknown Reaction Prochlorperazine 10/10/2014 Other Reaction(s): Other: See Comments, Unknown, Unknown Reaction Promethazine 06/24/2024 Other Reaction(s): Unknown Sulfa Antibiotics 10/10/2014 Other Reaction(s): Other: See Comments, Unknown, Unknown Reaction Medications simvastatin (Zocor) 20 MG tablet 4 Active Claritin 10 MG tablet 1 (one) time each day at the same time Active levothyroxine (Synthroid) 125 MCG tablet 1 (one) time each day at the same time Active lansoprazole (Prevacid) [address] capsule Take 30 mg by mouth in the morning. Active lamoTRIgine (LaMICtal) 25 MG chewable tablet Chew 25 mg in the morning. Active LaMICtal 25 MG tablet 1 (one) time each day at the same time Active escitalopram (Lexapro) 10 MG tablet Take 10 mg by mouth in the morning. Active ergocalciferol (Vitamin D-2) 1.25 MG (87877 UT) capsule 1 capsule Active Docusate Sodium (DSS) 100 MG capsule Take 100 mg by mouth in the morning. Active citalopram (CeleXA) 20 MG tablet Take 20 mg by mouth in the morning. Active ciprofloxacin (Cipro) 500 MG tablet Take 500 mg by mouth every 12 (twelve) hours 4 Active cholecalciferol (Vitamin D-3) 50 MCG (1999 UT) capsule Take 1 capsule by mouth in the morning. Active buPROPion XL (Wellbutrin XL) 300 MG 24 hr tablet 1 (one) time each day at the same time Active albuterol HFA 90 mcg/act inhaler Inhale 1 puff Active alendronate (Fosamax) 70 MG tablet 4 Active ibuprofen 400 MG tablet Take 400 mg by mouth every 6 (six) hours if needed 4 Active meclizine (Antivert) 25 MG tablet Take 25 mg by mouth 3 (three) times a day as needed for dizziness Active levothyroxine (Synthroid, Levoxyl) 125 MCG tablet Take 125 mcg by mouth in the morning. 02/18/20 Discontinu ed(Therapy completed) citalopram (CeleXA) 20 MG tablet 1 (one) time each day at the same time 02/18/20 Discontinu ed(Therapy completed) buPROPion XL (Wellbutrin XL) 300 MG 24 hr tablet Take 300 mg by mouth in the morning. 02/18/20 Discontinu ed(Therapy completed) Active Problems Problem Noted Date Diagnosed Date Osteoporosis 02/03/2025 Carpal tunnel syndrome, right 02/03/2025 Carpal tunnel syndrome, left 02/03/2025 COPD (chronic obstructive pulmonary disease) 01/2025 Distal paresthesia 02/03/2025 Hyperlipidemia 02/03/2025 Pacemaker 02/03/2025 Vitamin D deficiency 02/03/2025 Finger stiffness, left 10/22/2024 Transient neurological symptoms 06/13/2024 Unspecified severe protein-calorie malnutrition 01/04/2024 CURRAN (dyspnea on exertion) 05/03/2023 Dyspepsia 10/13/2014 Encounters Date Type Department Care Team Description 02/17/2025 1:30 PM EDT Office Visit [facility] [place] [address] [place] [phone] García Rosales, SLURRY WORKER Preop examination (Primary Dx) 02/17/2025 Telephone [facility] [address] [place] [phone] Ana Laura Jacobs MA Surgery Cancelation 02/17/2025 Bamboo flowsheet [facility] [address] [place] [address] García Rosales, KALPANA 02/17/2025 Travel 02/10/2025 Telephone [facility] [address] [place] [phone] Jr. Tony Teague, 01/08/2025 10:30 AM EDT Office Visit [facility] [address] [place] [phone] Jr. Tony Teague, Carpal tunnel syndrome on left (Primary Dx); Pain in left hand 01/08/2025 Bamboo flowsheet [facility] [address] [place] [address] Jr. Tony Teague, 01/08/2025 Travel 11/28/2024 11:00 AM EST Procedure Visit [facility] [address] [place] [phone] Nathaniel Vargas DO Numbness and tingling in left hand 11/28/2024 Bamboo flowsheet [facility] [address] [place] [phone] Nathaniel Vargas DO from Last 3 Months Family History Medical History Relation Name Comments Alzheimer's disease Father Dementia Father heart problems Father Thyroid disease Mother Relation Name Status Comments Father Mother Alive Social History Tobacco Use Types Packs/Day Years Used Date Smoking Tobacco: Never Smokeless Tobacco: Never Tobacco Cessation:Counseling Given: Not Answered Alcohol Use Standard Drinks/Week Comments Not Currently 0 (1 standard drink = 0.6 oz pur e alcohol) Comments Unknown Sex and Gender Information Value Date Recorded Sex Assigned at Not on file Legal Sex Female 7:31 PM EDT Gender Identity Female 06/21/2024 12:23 PM EDT Sexual Orientation Straight 06/21/2024 12 :23 PM EDT Last Filed Vital Signs Vital Sign Reading Time Taken Comments Blood Pressure 128/80 03/18/2020 12:00 PM EDT Pulse - - Temperature - - Respiratory Rate - - Oxygen Saturation - - Inhaled Oxygen Concentration - - Weight 47.2 kg (104 lb) 02/17/2025 1:40 PM EDT Height 152.4 cm (5') 02/17/2025 1:40 PM EDT Body Mass Index 20.31 02/17/2025 1:40 PM EDT Plan of Treatment Not on file Procedures Procedure Name Priority Date/Time Associated Diagnosis Comments AMB REFERRAL TO NEUROLOGY Routine 11/28/2024 12:01 PM EST Numbness and tingling in left hand [facility] EMG 1 EXTREMEITY Routine 11/28/2024 11:09 AM EST Numbness and tingling in left hand [facility] NVC 5-6 NERVES Routine 11/28/2024 11:09 AM EST Numbness and tingling in left hand from Last 3 Months Results * Ambulatory referral to Neurology (11/28/2024 12:01 PM EST) us Zulema Mackay NP OUTPATIENT REFERRAL ORDERABLES Final Result * EMG 1 Extremeity (11/28/2024 11:09 AM EST) Nathaniel Styles DO - 11/28/2024 11:09 AM EST Cts left minimal us Nathaniel Vargas DO NEUROLOGY ORDERABLES Loni l Result * NVC 5-6 Nerves (11/28/2024 11:09 AM EST) Nathaniel Styles DO - 11/28/2024 11:09 AM EST Cts left minimal us Nathaniel Vargas DO NEUROLOGY ORDERABLES Loni l Result from Last 3 Months Insurance [employer] Care Teams Sales Facilitator Relationship Specialty Start Date End Date Paulo Turner MD PCP - General Family Medicine 06/24/24
--- OUTSIDE RECORDS SUMMARY | 2025-02-20 00:10 | XMS_ITS | Encounter Summary ---
Author Organization [facility] Address [address] [place] [address] Care Team Providers Care Spinning Bath Patroller Name Role Phone Paulo Turner MD Primary Care Provider [phone] Reason for Visit * Reason Onset Date Comments Surgery Cancelation 02/17/2025 Encounter Details Date Type Department Care Team (Late st Contact Info) Description 02/17/2025 Telephone [facility] [address] [place] [address] Ana Laura Jacobs MA Surgery Cancelation Social History Tobacco Use Types Packs/Day Years [...] PM EDT documented as of this encounter Miscellaneous Notes * Telephone Encounter - Ana Laura Jacobs MA - 02/17/2025 2:25 PM EDT Surgery canceled due to lungs having crackling when García went into listen. Patient will need PCP clearance first. She did say she gets pneumonia easy. Once we obtain PCP clearance she can be scheduled. documented in this encounter Plan of Treatment Not on file documented as of this encounter Visit Diagnoses Not on filedocumented in this encounter Care Teams Spinning Bath Patroller Relationship Specialty Start Date End Date Paulo Turner MD PCP - General Family Medicine 06/24/24 documented as of this encounter
--- OUTSIDE RECORDS SUMMARY | 2025-02-20 00:10 | XMS_ITS | Clinical Summary ---
Author Organization [facility] Address [address] [place] [address] Care Team Providers Care Motorcycle Engine Assembler Name Role Phone Paulo Turner MD Primary Care Provider [phone] Allergies Active Allergy Reactions Criticality Noted Date Comments Prochlorperazine 04/26/2023 Sulfa (Sulfonamide Antibiotics) 04/02 Medications Medication Sig Dispensed Refills Start Date End Date Status loratadine (Claritin) 10 mg tablet Take 10 mg by mouth in the morning. 02/27/2023 Active lansoprazole (Prevacid) [address] capsule 1 (one) time each day at the same time. Active levothyroxine (Synthroid, Levoxyl) 125 mcg tablet Take 125 mcg by mouth in the morning. 02/27/2023 Active simvastatin (Zocor) 20 mg tablet Take 20 mg by mouth at bedtime. 02/27/2023 Active cholecalciferol, vitamin D3, 50 mcg (2,000 unit) capsule 1 capsule 1 (one) time each day at the same time. Active buPROPion XL (Wellbutrin XL) 300 mg 24 hr tablet 1 (one) time each day at the same time. Active lamoTRIgine (LaMICtal) 25 mg tablet Take 2 tablets by mouth in the morning. 02/21/2023 Active albuterol 90 mcg/actuation inhaler every 4 (four) hours. Active citalopram (CeleXA) 20 mg tablet Take 20 mg by mouth in the morning. Active Fosamax 70 mg tablet 1 tablet 30 minutes before the first food, beverage or medicine of the day with plain water Orally for 30 days 06/26/2024 Active Active Problems Problem Noted Date Diagnosed Date Finger stiffness, left 10/22/2024 Transient neurological symptoms 06/13/2024 Unspecified severe protein-calorie malnutrition 01/04/2024 Dizziness 01/02/2024 CURRAN (dyspnea on exertion) 05/03/2023 Assessment & Plan (05/03/2023 1:45 PM EDT): Will get echo and stress test Abdominal pain 10/13/2014 04/26/2023 Constipated 10/13/2014 04/26/2023 Dyspepsia 10/13/2014 04/26/2023 COPD (chronic obstructive pulmonary disease) Assessment & Plan (05/03/2023 1:45 PM EDT): -on inhalers -stable -follow up with pcp Pacemaker Assessment & Plan (05/03/2023 1:46 PM EDT): - Biotronik dual-chamber PPM implanted [address] Weaver - normal device function and stable lead thresholds, device checks as scheduled Hyperlipidemia Assessment & Plan (05/03/2023 1:46 PM EDT): -CT statin Encounters Date Type Department Care Team Description 02/04/2025 7:45 PM EDT Ancillary Procedure [facility] [address] [place] [phone] Adjustment and management of cardiac pacemaker 02/02/2025 Orders Only [facility] [address] [place] [phone] Chandrakant Alba MD 12/10/2024 10:00 AM EDT Ancillary Procedure [facility] [address] [place] [phone] Encounter for implantable defibrillator reprogramming or check 11/29/2024 9:00 AM EST Office Visit [facility] [address] [place] [phone] Darryl Valdez CNP CURRAN (dyspnea on exertion) (Primary Dx); Chronic obstructive pulmonary disease, unspecified COPD type (CMS/HCC); Pacemaker; Mixed hyperlipidemia from Last 3 Months Family History Medical History Relation Name Comments Alzheimer's disease Father Relation Name Status Comments Father Mother Alive Social History Tobacco Use Types Packs/Day Years Used Date Smoking Tobacco: Never Smokeless Tobacco: Never Alcohol Use Standard Drinks/Week Comments Not Currently 0 (1 standard drink = 0.6 oz pur e alcohol) [facility] Utilities Answer Date Recorded In the past 12 months has th e [place], gas, oil, or water [place] threatened to shut off services in your home? No 01/02/2024 Humiliation, Afraid, Rape, and Kick questionnair e Answer Date Recorded Within the last year, have y ou been afraid of your partner or ex-partner? No 01/02/2024 Emotionally Abused Not on file 01/02/2024 Physically Abused Not on file 01/02/2024 Sexually Abused Not on file 01/02/2024 Overall Financial Resource Strain (CARDIA) Answe r Date Recorded How hard is it for you to pa y for the very basics like food, housing, medical care, and heating? Not hard at all 01/02/2024 Transportation Answer Date Recorded In the past 12 months, has l ack of transportation kept you from medical appointments or from getting medications? No 01/02/2024 Lack of Transportation (Non-Medical) Not on file 01/02/2024 Housing Stability Vital Sign Answer Tobias e Recorded Unable to Pay for Housing in the Last Year Not o n file 01/02/2024 Number of Places Lived in the Last Year Not on f ile 01/02/2024 In the last 12 months, was t here a time when you did not have a steady place to sleep or slept in a half-way (including now)? No 01/02/2024 Hunger Vital Sign Answer Date Recorded Within the past 12 months, y ou worried that your food would run out before you got the money to buy more. Never true 01/02/20 24 Ran Out of Food in the Last Year Not on file 01/02/2024 Sex and Gender Information Value Date Recorded Sex Assigned at Not on file Gender Identity Not on file Sexual Orientation Not on file Last Filed Vital Signs Vital Sign Reading Time Taken Comments Blood Pressure 94/62 11/29/2024 9:13 AM EST Pulse 76 11/29/2024 9:13 AM EST Temperature 36.7 C (98 F) 02/20/2024 6:44 PM EDT Respiratory Rate 17 02/20/2024 9:30 PM EDT Oxygen Saturation 88% 11/29/2024 9:13 AM EST Inhaled Oxygen Concentration - - Weight 46.7 kg (103 lb) 11/29/2024 9:13 AM EST Height 152.4 cm (5') 11/29/2024 9:13 AM EST Body Mass Index 20.12 11/29/2024 9:13 AM EST Plan of Treatment Upcoming Encounters Date Type Department Care Team (Late st Contact Info) Description 02/28/2025 10:00 AM EDT Office Visit [facility] [address] [place] [address] Darryl Valdez, BRUSH FINISHER [address] [place] [address] Health Maintenance Due Date Last Done Comments CT Colonography 1964 Colonoscopy 1964 Colorectal Cancer Screening 1964 FIT-DNA 1964 FIT 1964 FOBT 1964 Sigmoidoscopy 1964 Pneumococcal Vaccine: Pediat rics (0 to 5 Years) and At-Risk Patients (6 to 64 Years) (1 of 2 - PCV) 1970 Depression Screening 1976 Pap Smear 1985 Adult Tetanus 1986 Cervical Cancer Screening 1994 HPV/Cotest 1994 Mammogram 2004 Zoster Vaccines (1 of 2) 2014 COVID-19 Vaccine (2023-2 5 season) 2024 Influenza Vaccine (Season Ended) 2025 HIB Vaccines Aged Out No longer eligi ble based on patient's age to complete this topic HPV Vaccines Aged Out No longer eligi ble based on patient's age to complete this topic IPV Vaccines Aged Out No longer eligi ble based on patient's age to complete this topic Meningococcal B Vaccine Aged Out No l onger eligible based on patient's age to complete this topic Meningococcal Vaccine Aged Out No agustin radha eligible based on patient's age to complete this topic Rotavirus Vaccines Aged Out No longer eligible based on patient's age to complete this topic Procedures Procedure Name Priority Date/Time Associated Diagnosis Comments CARDIAC DEVICE CHECK CHECK - REMOTE Routine 02/14/2025 9:43 AM EDT Adjustment and management of cardiac pacemaker CARDIAC DEVICE CHECK - REMOTE - PACEMAKER Routine 02/02/2025 12:00 AM EDT CARDIAC DEVICE CHECK CHECK - REMOTE Routine 01/29/2025 10:30 AM EDT Adjustment and management of cardiac pacemaker CARDIAC DEVICE CHECK - IN CLINIC - PACEMAKER DUAL CHAMBER W/ PROG Routine 12/11/2024 2:12 PM EDT Encounter for implantable defibrillator reprogramming or check from Last 3 Months Results * CARDIAC DEVICE CHECK - REMOTE - PACEMAKER (02/14/2025 9:43 AM EDT) Only the most recent of2 resultswithin the time period is included. Chandrakant Alba MD CV IMPLANTABLE CARDI AC DEVICE PROCEDURES CPACS * Cardiac device check - Remote pacemaker (02/02/2025 12:00 AM EDT) Anatomical Region Laterality Modality Other 02/02/2025 Chandrakant Alba MD CV IMPLANTABLE CARDI AC DEVICE PROCEDURES * CARDIAC DEVICE CHECK - IN CLINIC - PACEMAKER DUAL CHAMBER W/ PROG (12/11/2024 2:12 PM EDT) Anatomical Region Laterality Modality Other Narrative 12/13/2024 8:59 AM EDT By using the attestations below, the signing clinician agrees that I have read and verify that the documentation has been personally reviewed by me and ensure that the documentation accurately reflects the encounter. Routine EP device follow up as per schedule. Please see attached note Chandrakant Alba MD CV IMPLANTABLE CARDI AC DEVICE PROCEDURES from Last 3 Months Advance Directives * Full Code (Latest Code Status on File) Date Activated Date Inactivated Comments 01/02/2024 12:45 AM 01/05/2024 9:48 PM Care Teams Motorcycle Engine Assembler Relationship Specialty Start Date End Date Paulo Turner MD [address] [facility] [place] [address] PCP - General 04/26/23
--- OUTSIDE RECORDS SUMMARY | 2025-02-20 00:10 | XMS_ITS | Clinical Summary ---
Author Organization [facility] Address [address] [place] [address] Care Team Providers Care Leather Craftsman Name Role Phone Kayy Mccormack MD Primary Care Provider [phone] Allergies Active Allergy Reactions Criticality Noted Date Comments Prochlorperazine Maleate 10/10/2014 Erythromycin 11/15/2014 Penicillins 10/10/2014 Sulfa Antibiotics 10/10/2014 Medications senna (SENOKOT) 8.6 MG tablet Take 2 tablets by mouth daily. Active Cholecalciferol (VITAMIN D) 2000 UNITS CAPS capsule Take by mouth. Active levothyroxine (SYNTHROID) 125 MCG tablet Take 125 mcg by mouth Daily. Active polyethylene glycol (MIRALAX) PACK packet Take 17 g by mouth daily. Active docusate sodium (COLACE) 100 MG capsule Take 100 mg by mouth 2 times daily. Active fludrocortisone (FLORINEF) 0.1 MG tablet Take 0.1 mg by mouth daily. Active citalopram (CELEXA) 20 MG tablet Take 20 mg by mouth daily. Active buPROPion (WELLBUTRIN XL) 300 MG XL tablet Take 300 mg by mouth every morning. Active lamoTRIgine (LAMICTAL) 25 MG CHEW chew tab Take 25 mg by mouth daily. Active calcium carbonate 600 MG TABS tablet Take 1 tablet by mouth daily. Active polycarbophil (FIBERCON) 625 MG tablet Take 625 mg by mouth daily. Active alendronate (FOSAMAX) 70 MG tablet Take 70 mg by mouth every 7 days. Takes on Sundays last dose 10/05/2014 Active ibuprofen (ADVIL;MOTRIN) 800 MG tablet Take 800 mg by mouth every 8 hours as needed for Pain. Active escitalopram (LEXAPRO) 10 MG tablet Take 10 mg by mouth daily. Active Loratadine 10 MG CAPS Take by mouth. Active ranitidine (ZANTAC) 150 MG tablet Take 150 mg by mouth 2 times daily. Active Active Problems Problem Noted Date Diagnosed Date Dyspepsia 10/13/2014 Abdominal pain 10/13/2014 Constipated 10/13/2014 Social History Tobacco Use Types Packs/Day Years Used Date Smoking Tobacco: Never Alcohol Use Standard Drinks/Week Comments No 0 (1 standard drink = 0.6 oz pur e alcohol) Comments No Sex and Gender Information Value Date Recorded Sex Assigned at Not on file Legal Sex Female 1:09 PM EST Gender Identity Not on file Sexual Orientation Not on file Last Filed Vital Signs Vital Sign Reading Time Taken Comments Blood Pressure 115/80 11/15/2014 3:35 PM EST Pulse 68 11/15/2014 3:35 PM EST Temperature 36.3 C (97.4 F) 10/13/2014 2:40 PM EST Respiratory Rate 15 11/15/2014 3:35 PM EST Oxygen Saturation 97% 11/15/2014 3:35 PM EST Inhaled Oxygen Concentration - - Weight 41.7 kg (92 lb) 10/13/2014 1:40 PM EST Height 154.9 cm (5' 1 ) 10/13/2014 1:40 PM EST Body Mass Index 17.38 10/13/2014 1:40 PM EST Plan of Treatment Not on file Insurance [facility] [place] Care Teams Leather Craftsman Relationship Specialty [place] [address] [place] [id number] PCP - General 10/13/14
--- OUTSIDE RECORDS SUMMARY | 2025-02-20 00:10 | XMS_ITS | Encounter Summary ---
Author Organization [facility] Address [address] [place] [address] Care Team Providers Care Stove Fitter Name Role Phone Paulo Turner MD Primary Care Provider [phone] Encounter Details Date Type Department Care Team (Late st Contact Info) Description 02/17/2025 Bamboo flowsheet [facility] [address] [facility] [place] [address] García Rosales NP [address] [place], [place] [phone] Social History Tobacco Use Types Packs/Day Years [...] PM EDT documented as of this encounter Plan of Treatment Not on file documented as of this encounter Visit Diagnoses Not on filedocumented in this encounter Care Teams Stove Fitter Relationship Specialty Start Date End Date Paulo Turner MD PCP - General Family Medicine 06/24/24 documented as of this encounter
--- OUTSIDE RECORDS SUMMARY | 2025-02-20 00:10 | XMS_ITS | Clinical Summary ---
Author Organization [facility] Address [address] [place] [address] Care Team Providers Care Grading Clerk Name Role Phone Paulo Turner MD Unavailable [phone] Paulo Turner MD Primary Care Provider [phone] Allergies Active Allergy Reactions Criticality Noted Date Comments Prochlorperazine Other: See Comments 10/10/2014 Sulfa (Sulfonamide Antibiotics) Other: See Comments 10/10/2014 Medications albuterol HFA (PROVENTIL HFA, VENTOLIN HFA) 90 mcg/actuation inhaler Inhale 1 Puff as instructed as needed for wheezing/shortn ess of breath. Active buPROPion XL (WELLBUTRIN XL) 300 mg 24 hr tablet Take 300 mg by mouth once daily. Active calcium carbonate (CALTRATE) 600 mg calcium (1,500 mg) tab Take 1 tablet by mouth once daily. Active Cholecalciferol , Vitamin D3, 50 mcg (2,000 unit) cap Take 1 capsule by mouth once daily. Active citalopram (CELEXA) 20 mg tablet Take 20 mg by mouth once daily. Active docusate sodium (COLACE) 100 mg capsule Take 100 mg by mouth once daily. Active escitalopram oxalate (LEXAPRO) 10 mg tablet Take 10 mg by mouth once daily. Active lamoTRIgine dispersible/trevor wable (LAMICTAL) 25 mg chewable tablet Take 25 mg by mouth once daily. Active lansoprazole (PREVACID) 30 mg capsule Take 30 mg by mouth once daily. Active levothyroxine (SYNTHROID) 125 mcg tablet Take 125 mcg by mouth once daily. Active loratadine (CLARITIN) 10 mg tablet Take 10 mg by mouth once daily. 3 Active simvastatin (ZOCOR) 20 mg tablet Take 20 mg by mouth daily at bedtime. 3 Active Active Problems Problem Noted Date Diagnosed Date Transient neurological symptoms 06/13/2024 Social History Tobacco Use Types Packs/Day Years Used Date Smoking Tobacco: Never Assessed Tobacco Cessation:Counseling Given: No Area Deprivation Index Answer Date Aprker rded National Score (1-100), lower number is lower ri sk 76 03/06/2024 State Score (1-10), lower number is lower risk 6 03/06/2024 Data from: https://www.neighborhoodatlas.medicine.[facility]/. Last address used for calculation [address] 03/06/2024 Comments Unknown Sex and Gender Information Value Date Recorded Sex Assigned at Not on file Legal Sex Female 4:29 PM EST Gender Identity Not on file Sexual Orientation Not on file Last Filed Vital Signs Vital Sign Reading Time Taken Comments Blood Pressure 107/77 06/13/2024 12:13 PM EDT Pulse 74 06/13/2024 12:13 PM EDT Temperature 36.2 C (97.2 F) 03/06/2024 1:46 PM EDT Respiratory Rate - - Oxygen Saturation - - Inhaled Oxygen Concentration - - Weight 46.3 kg (102 lb 2.9 oz) 06/13/2024 12:13 PM EDT Height 152.3 cm (4' 11.96 ) 06/13/2024 12:13 PM EDT Body Mass Index 19.98 06/13/2024 12:13 PM EDT Plan of Treatment Health Maintenance Due Date Last Done Comments Anxiety Screening 1982 Depression Screening 1982 HIV Screening 1982 Hepatitis C Screening 1982 DTaP,Tdap,Td Vaccine (1 - Tdap) 1983 Cervical Cancer Screening [address] Colonography 2009 Cologuard (FIT-DNA) 2009 Colonoscopy 2009 Colorectal Cancer Screening 2009 Fecal Occult Blood 2009 Lipid Screening 2009 Sigmoidoscopy 2009 Pneumococcal Vaccine: 50+ (1 of 1 - PCV) 2014 Shingrix Vaccine (1 of 2) 2014 Covid-19 Vaccine (1 - 2023-2 5 season) 2024 Influenza Vaccine (Season Ended) 2025 Diabetes Screening 02/19/2027 02/20/2024, 0 01/03/2024, 01/02/2024, Additional history exists RSV Vaccine (1 - 1-dose 75+ series) 2039 Insurance [facility] MEDICAID Care Teams Grading Clerk Relationship Specialty Start Date End Date Paulo Turner MD [address] [place] [address] PCP - General Family Medicine 06/13/24 Paulo Turner MD [address] [place] [address] Referring Family Medicine 02/09/24
--- OUTSIDE RECORDS SUMMARY | 2025-02-20 00:10 | XMS_ITS | Referral Summary ---
Author Organization [facility] Address [address] [place] [address] Care Team Providers Care Silk Presser Name Role Phone Paulo Turner MD Primary Care Provider [phone] Encounters Date Type Department Care Team Description 02/04/2025 7:45 PM EDT Ancillary Procedure [facility] [address] [place] [address] Adjustment and management of cardiac pacemaker 02/02/2025 Orders Only [facility] [address] [place] [address] Chandrakant Alba MD 12/10/2024 10:00 AM EDT Ancillary Procedure [place] [address] [place] [id number] Encounter for implantable defibrillator reprogramming or check 11/29/2024 9:00 AM EST Office Visit [facility] [address] [place] [id number] Darryl Valdez CNP CURRAN (dyspnea on exertion) (Primary Dx); Chronic obstructive pulmonary disease, unspecified COPD type (CMS/HCC); Pacemaker; Mixed hyperlipidemia from Last 3 Months Allergies Active Allergy Reactions Criticality Noted Date [...] Biotronik dual-chamber PPM implanted [address] Owen - normal device function and stable lead thresholds, device checks as scheduled Hyperlipidemia Assessment & Plan (05/03/2023 1:46 PM EDT): -CT statin Social History Tobacco Use Types Packs/Day Years Used Date Smoking Tobacco: Never Smokeless Tobacco: Never Alcohol Use Standard Drinks/Week Comments Not Currently 0 (1 standard drink = 0.6 oz pur e alcohol) [facility] Utilities Answer Date Recorded In the past 12 months has th e [employer], gas, oil, or water company threatened to shut off services in your [...] place to sleep or slept in a detention (including now)? No 01/02/2024 Hunger Vital Sign [...] Description 02/28/2025 10:00 AM EDT Office Visit [facility] [address] [place] [address] Darryl Valdez, RN [employer] [address] [place] [address] Procedures Procedure Name Priority Date/Time Associated Diagnosis [...] 12:45 AM 01/05/2024 9:48 PM Care Teams Silk Presser Relationship Specialty Start Date End Date Paulo Turner MD [address] [facility] [address] [address] PCP - General 04/26/23
[2025-02-20 00:11] LABS: C Reactive Protein <0.50 mg/dL (<=0.50)
--- OUTSIDE RECORDS SUMMARY | 2025-02-20 00:11 | XMS_ITS | CCD ---
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 [facility] Comment on above: Performed By: #### C BC ####[facility] Eqslyglmsj101[address] [place], [place] [address]DrChen Sharpjarrod Juan F MCH (RBC) [Entitic mass] 27.6 pg Normal 26.7-34.0 [facility] Comment on above: Performed By: #### C BC ####[facility] Nkxyubycsn90[address] [place], [place] [address]DrChen Rogel MCHC (RBC) [Mass/Vol] 31.9 g/dL Normal 29.9-35.2 [facility] Comment on above: Performed By: #### C BC ####[facility] Bqgeisddsw[address] [place], [place] [address]DrChen Rogel MCV (RBC) [Entitic vol] 86.5 fL Normal 81.0-99.0 [facility] Comment on above: Performed By: #### C BC ####[facility] [address]tx[address]poqm[address] [place] [address]DrChen Sharpjarrod Rogel MONO # 0.2 103/ul Critically low 0.3-0.8 [facility] Comment on above: Performed By: #### C BC ####[facility] Qmwryupjvq2209[address] [place], [place] [address]DrChen Rogel Monocytes/100 WBC (Bld) 5.0 % Normal 1.7-12.0 [facility] Comment on above: Performed By: #### C BC ####[facility] Srrkglubzq36[address] [place], [place] [address]DrChen Sharpjarrod Juan F NEUT # 3.1 103/ul Normal 1.4-6.5 [facility] Comment on above: Performed By: #### C BC ####[facility] Aotvyfkoqs1856[address] [place], [place] [address]DrChen Rogel Neutrophils/100 WBC (Bld) 76.6 % Critically high 43.0-75.0 [facility] Comment on above: Performed By: #### C BC ####[facility] Ywdlalcxkd773[address] [place], [place] [address]DrChen Rogel Platelet mean volume (Bld) [Entitic vol] 9.9 fL Normal 9.5-13.5 [facility] Comment on above: Performed By: #### C BC ####[facility] Opkioawpgq811[address] [place], [place] [address]Dr. Shahbaz Rogel PLT 194 103/ul Normal 150-450 [facility] Comment on above: Performed By: #### C BC ####[facility] Indnybktqu385967 [address] [place], [place] [address]DrChen Rogel RBC 4.21 106/ul Normal 4.20-5.40 [facility] Comment on above: Performed By: #### C BC ####[facility] Bstohtvfec684[address] [place], [place] [address]DrChen Rogel WBC 4.0 103/ul Normal 4.0-11.0 [facility] Comment on above: Performed By: #### C BC ####[facility] Lxvpnhficy066567 [address] [place], [place] [address]Dr. Lilajarrod Rogel PROF CHEM 8 (BAS METB)on Anion gap [Moles/Vol] 9.5 mmol/L Normal [facility] Comment on above: Performed By: #### B MP ####[facility] Joftqgrtol6095[address] [place], [place] [address]Dr. Shahbaz Rogel Calcium [Mass/Vol] 8.8 mg/dL Normal 8.5-10.1 [facility] Comment on above: Performed By: #### B MP ####[facility] Kyrndlumco0624[address] [place], [place] [address]Dr. Shahbaz Rogel Chloride [Moles/Vol] 106 mmol/L Normal 98-107 [facility] Comment on above: Performed By: #### B MP ####[facility] Euplstdnya917467 [address] [place], [place] [address]Dr. Shahbaz Rogel CO2 [Moles/Vol] 29.6 mmol/L Normal 21.0-32.0 [facility] Comment on above: Performed By: #### B MP ####[facility] Msmtltgpvl4785[address] [place], [place] [address]Dr. Shahbaz Rogel Creatinine [Mass/Vol] 0.80 mg/dL Normal 0.55-1.02 [facility] Comment on above: Performed By: #### B MP ####[facility] Aofkyazltp817567 [address] [place], [place] [address]Dr. Shahbaz Rogel EGFR-AF BELGIAN >60 Normal >=60 [facility] Comment on above: Performed By: #### B MP ####[facility] Ndyfnmvdmy3638[address] [place], [place] [address]Dr. Shahbaz Rogel EGFR-NON AF BELGIAN >60 Normal >=60 [facility] Comment on above: Performed By: #### B MP ####[facility] Znlmrurive092567 [address] [place], [place] [address]Dr. Shahbaz Rogel Glucose [Mass/Vol] 137 mg/dL Critically high 74-106 T [facility] Comment on above: Performed By: #### B MP ####[facility] Horsjxrmfl875[address] [place], [place] [address]Dr. Shahbaz Rogel Potassium [Moles/Vol] 4.1 mmol/L Normal 3.5-5.1 [facility] Comment on above: Performed By: #### B MP ####[facility] Snjonqngjo995067 [address] [place], [place] [address]Dr. Shahbaz Rogel Sodium [Moles/Vol] 141 mmol/L Normal 136-145 [facility] Comment on above: Performed By: #### B MP ####[facility] Fwrdtckktg115367 [address] [place], [place] [address]Dr. Shahbaz Rogel Urea nitrogen [Mass/Vol] 18.0 mg/dL Normal 7.0-18.0 [facility] Comment on above: Performed By: #### B MP ####[facility] Axwrsfeeqs359667 [address] [place], [place] [address]Dr. Shahbaz Rogel Urea nitrogen/Creatinine [Mass ratio] 22.5 mg/mg Normal [facility] Comment on above: Performed By: #### B MP ####[facility] Jxbhwitxvm559467 [address] [place], [place] [address]Dr. Shahbaz Rogel CBC AUTO DIFFon 01-06-2023 BASO # 0.0 103/ul Normal 0.0-0.1 [facility] Comment on above: Performed By: #### C BC ####[facility] Zyucsfumbq0496[address] [place], [place] [address]Dr. Shahbaz Rogel Basophils/100 WBC (Bld) 0.0 % Critically low 0.2-2.0 [facility] Comment on above: Performed By: #### C BC ####[facility] Vcandojavh524967 [address] [place], [place] [address]Dr. Shahbaz Rogel EO # 0.0 103/ul Normal 0.0-0.7 [facility] Comment on above: Performed By: #### C BC ####[facility] Kllegtxmyz184367 [address] [place], [place] [address]Dr. Shahbaz Rogel Eosinophils/100 WBC (Bld) 0.0 % Critically low 0.9-7.0 [facility] Comment on above: Performed By: #### C BC ####[facility] Rnfpovzkgx479067 [address] [place], [place] [address]Dr. Shahbaz Rogel Erythrocyte distribution width (RBC) [Ratio] 13.8 % Normal 11.0-15.0 [facility] Comment on above: Performed By: #### C BC ####[facility] Flvdflxlsw594767 [address] [place], [place] [address]Dr. Shahbaz Rogel Hematocrit (Bld) [Volume fraction] 36.9 % Normal 36.0-48.0 [facility] Comment on above: Performed By: #### C BC ####[facility] Aqvrqepwse5468[address] [place], [place] [address]Dr. Shahbaz Rogel Hemoglobin (Bld) [Mass/Vol] 11.8 g/dL Critically low 12.0-16.0 [facility] Comment on above: Performed By: #### C BC ####[facility] Yraewjalig168[address] [place], [place] [address]Dr. Shahbaz Rogel IG # 0.04 10e3/ul Critically high 0.00-0.03 [facility] Comment on above: Performed By: #### C BC ####[facility] Bhnwfggsfh358[address] [place], [place] [address]Dr. Shahbaz Rogel IG % 1.1 % Critically high 0.0-0.5 [facility] Comment on above: Performed By: #### C BC ####[facility] Xkbzesfvbp484567 [address] [place], [place] [address]Dr. Shahbaz Rogel LYMPH # 0.5 103/ul Critically low 1.2-3.8 [facility] Comment on above: Performed By: #### C BC ####[facility] Ohwhwpsrxj133867 [address] [place], [place] [address]Dr. Shahbaz Rogel Lymphocytes/100 WBC (Bld) 13.9 % Critically low 20.5-60.0 [facility] Comment on above: Performed By: #### C BC ####[facility] Ycwllnrahn[address] [place], [place] [id number]. Lilajarrod Rogel MANUAL DIFF REQ NO Normal [facility] Comment on above: Performed By: #### C BC ####[facility] [address] [place] [address]Dr. Shahbaz Rogel MCH (RBC) [Entitic mass] 27.8 pg Normal 26.7-34.0 [facility] Comment on above: Performed By: #### C BC ####[facility] Iflonyebio6077[address] [place], [place] [address]Dr. Shahbaz Juan F MCHC (RBC) [Mass/Vol] 32.0 g/dL Normal 29.9-35.2 [facility] Comment on above: Performed By: #### C BC ####[facility] Cydvnnrrea000[address] [place], [place] [address]Dr. Lilajarrod Rogel MCV (RBC) [Entitic vol] 86.8 fL Normal 81.0-99.0 [facility] Comment on above: Performed By: #### C BC ####[facility] Yuitzkugfz2546[address] [place], [place] [address]Dr. Lilajarrod Rogel MONO # 0.1 103/ul Critically low 0.3-0.8 [facility] Comment on above: Performed By: #### C BC ####[facility] Frgviaaaws977567 [address] [place], [place] [address]Dr. Shahbaz Rogel Monocytes/100 WBC (Bld) 3.7 % Normal 1.7-12.0 [facility] Comment on above: Performed By: #### C BC ####[facility] Yqdyethtqz6[address] [place], [place] [address]Dr. Shahbaz Rogel NEUT # 3.1 103/ul Normal 1.4-6.5 [facility] Comment on above: Performed By: #### C BC ####[facility] Ufqnpdcpff2356[address] [place], [place] [address]Dr. Shahbaz Rogel Neutrophils/100 WBC (Bld) 81.3 % Critically high 43.0-75.0 [facility] Comment on above: Performed By: #### C BC ####[facility] Tvjempbqku289467 [address] [place], [place] [address]Dr. Shahbaz Rogel Platelet mean volume (Bld) [Entitic vol] 9.8 fL Normal 9.5-13.5 [facility] Comment on above: Performed By: #### C BC ####[facility] [address]wkeocdm[address] [place] [address]Dr. Shahbaz Rogel PLT 184 103/ul Normal 150-450 [facility] Comment on above: Performed By: #### C BC ####[facility] Vuspsucswq57[address] [place] [address]Dr. Shahbaz Rogel RBC 4.25 106/ul Normal 4.20-5.40 [facility] Comment on above: Performed By: #### C BC ####[facility] Uumcwizutq3516[address] [place], [place] [address]Dr. Shahbaz Rogel WBC 3.8 103/ul Critically low 4.0-11.0 [facility] Comment on above: Performed By: #### C BC ####[facility] Yvvkzcbcuu0626[address] [place], [place] [address]Dr. Shahbaz Rogel PROF CHEM 8 (BAS METB)on Anion gap [Moles/Vol] 9.2 mmol/L Normal [facility] Comment on above: Performed By: #### B MP ####[facility] Ctgtueotmn0228[address] [place], [place] [address]Dr. Shahbaz Rogel Calcium [Mass/Vol] 8.6 mg/dL Normal 8.5-10.1 [facility] Comment on above: Performed By: #### B MP ####[facility] Ggazqkgflc513667 [address] [place], [place] [address]Dr. Shahbaz Rogel Chloride [Moles/Vol] 107 mmol/L Normal 98-107 [facility] Comment on above: Performed By: #### B MP ####[facility] Nxozmfuvui299[address] [place], [place] [address]Dr. Shahbaz Rogel CO2 [Moles/Vol] 29.3 mmol/L Normal 21.0-32.0 [facility] Comment on above: Performed By: #### B MP ####[facility] Jxylffwhql85[address] [place], [place] [address]Dr. Shahbaz Rogel Creatinine [Mass/Vol] 0.79 mg/dL Normal 0.55-1.02 [facility] Comment on above: Performed By: #### B MP ####[facility] Xfqmlgontv[address] [place] [address]Dr. Lilajarrod Juan F EGFR-AF BELGIAN >60 Normal >=60 [facility] Comment on above: Performed By: #### B MP ####[facility] Suoizsspqe49[address] [place] [address]Dr. Shahbaz Rogel EGFR-NON AF BELGIAN >60 Normal >=60 [facility] Comment on above: Performed By: #### B MP ####[facility] Ugtoevssum285767 [address] [place], [place] [address]Dr. Shahbaz Rogel Glucose [Mass/Vol] 159 mg/dL Critically high 74-106 T [facility] Comment on above: Performed By: #### B MP ####[facility] Dqkouwrfai618067 [address] [place], [place] [address]Dr. Shahbaz Rogel Potassium [Moles/Vol] 3.5 mmol/L Normal 3.5-5.1 [facility] Comment on above: Performed By: #### B MP ####[facility] Ntzjiokspi308367 [address] [place], [place] [address]Dr. Shahbaz Rogel Sodium [Moles/Vol] 142 mmol/L Normal 136-145 [facility] Comment on above: Performed By: #### B MP ####[facility] Tosrhppnul666[address] [place], [place] [address]Dr. Shahbaz Rogel Urea nitrogen [Mass/Vol] 21.0 mg/dL Critically high 7.0-18.0 [facility] Comment on above: Performed By: #### B MP ####[facility] Plqcdhbngf584067 [address] [place], [place] [address]Dr. Shahbaz Rogel Urea nitrogen/Creatinine [Mass ratio] 26.6 mg/mg Normal [facility] Comment on above: Performed By: #### B MP ####[facility] Thovwvgwnx6578[address] [place], [place] [address]Dr. Shahbaz Rogel XR CHEST 2 Von 01-06-2023 XR CHEST 2 V Normal [facility] CBC AUTO DIFFon 01-05-2023 BASO # 0.0 103/ul Normal 0.0-0.1 [facility] Comment on above: Performed By: #### C BC ####[facility] Dhy[address]pebfg[address] [place] [address]Dr. Shahbaz Rogel Basophils/100 WBC (Bld) 0.2 % Normal 0.2-2.0 [facility] Comment on above: Performed By: #### C BC ####[facility] Cavpsravuy990467 [address] [place], [place] [address]Dr. Shahbaz Rogel EO # 0.0 103/ul Normal 0.0-0.7 [facility] Comment on above: Performed By: #### C BC ####[facility] Pawhedtwcs6[address] [place], [place] [address]Dr. Shahbaz Rogel Eosinophils/100 WBC (Bld) 0.0 % Critically low 0.9-7.0 [facility] Comment on above: Performed By: #### C BC ####[facility] Qiknmsskor15[address] [place], [place] [address]Dr. Shahbaz Rogel Erythrocyte distribution width (RBC) [Ratio] 13.6 % Normal 11.0-15.0 [facility] Comment on above: Performed By: #### C BC ####[facility] Dmhilybboz4[address] [place], [place] [address]Dr. Shahbaz Rogel Hematocrit (Bld) [Volume fraction] 36.6 % Normal 36.0-48.0 [facility] Comment on above: Performed By: #### C BC ####[facility] Sbnpqtfabd110[address] [place], [place] [address]Dr. Shahbaz Rogel Hemoglobin (Bld) [Mass/Vol] 11.6 g/dL Critically low 12.0-16.0 [facility] Comment on above: Performed By: #### C BC ####[facility] Nqlkzagfjj156[address] [place], [place] [address]Dr. Shahbaz Rogel IG # 0.03 10e3/ul Normal 0.00-0.03 [facility] Comment on above: Performed By: #### C BC ####[facility] [address] [place] [id number]. Shahbaz Rogel IG % 0.5 % Normal 0.0-0.5 [facility] Comment on above: Performed By: #### C BC ####[facility] [address]nsq[address]fia[address] [place] [id number]. Shahbaz Rogel LYMPH # 0.6 103/ul Critically low 1.2-3.8 [facility] Comment on above: Performed By: #### C BC ####[facility] [address]nu24[address] [place] [id number]. Shahbaz Rogel Lymphocytes/100 WBC (Bld) 10.7 % Critically low 20.5-60.0 [facility] Comment on above: Performed By: #### C BC ####[facility] M[address]fgurwdp[address] [place] [address]Dr. Shahbaz Rogel MANUAL DIFF REQ NO Normal [facility] Comment on above: Performed By: #### C BC ####[facility] Zxvkylqbdr80[address] [place] [id number]. Shahbaz Rogel MCH (RBC) [Entitic mass] 27.7 pg Normal 26.7-34.0 [facility] Comment on above: Performed By: #### C BC ####[facility] [address]epsez[address] [place] [id number]. Shahbaz Rogel MCHC (RBC) [Mass/Vol] 31.7 g/dL Normal 29.9-35.2 [facility] Comment on above: Performed By: #### C BC ####[facility] T[address]mtaebuh[address] [place] [phone]. Shahbaz Rogel MCV (RBC) [Entitic vol] 87.4 fL Normal 81.0-99.0 [facility] Comment on above: Performed By: #### C BC ####[facility] L[address]yxyaem[address] [place] [phone]. Shahbaz Rogel MONO # 0.1 103/ul Critically low 0.3-0.8 [facility] Comment on above: Performed By: #### C BC ####[facility] Qhplwhbqgi7[address] [place] [phone]. Shahbaz Rogel Monocytes/100 WBC (Bld) 2.5 % Normal 1.7-12.0 [facility] Comment on above: Performed By: #### C BC ####[facility] Ttneuwjbin[address] [place] [phone]. Shahbaz Rogel NEUT # 4.8 103/ul Normal 1.4-6.5 [facility] Comment on above: Performed By: #### C BC ####[facility] Agxyvefeqa[address] [place] [address]Dr. Shahbaz Rogel Neutrophils/100 WBC (Bld) 86.1 % Critically high 43.0-75.0 [facility] Comment on above: Performed By: #### C BC ####[facility] Kqsjpkybnf20[address] [place] [address]Dr. Shahbaz Rogel Platelet mean volume (Bld) [Entitic vol] 10.0 fL Normal 9.5-13.5 [facility] Comment on above: Performed By: #### C BC ####[facility] Kxlwohayfm[address] [place] [address]Dr. Shahbaz Rogel PLT 193 103/ul Normal 150-450 [facility] Comment on above: Performed By: #### C BC ####[facility] Raypfzdpfx20[address] [place] [phone]. Shahbaz Rogel RBC 4.19 106/ul Critically low 4.20-5.40 [facility] Comment on above: Performed By: #### C BC ####[facility] Klzsuvdyoe98[address] [place], [place] [address]Dr. Shahbaz Rogel WBC 5.6 103/ul Normal 4.0-11.0 [facility] Comment on above: Performed By: #### C BC ####[facility] Nyaknjrqri[address] [place], [place] [address]Dr. Shahbaz Rogel PROF CHEM 8 (BAS METB)on Anion gap [Moles/Vol] 12.7 mmol/L Normal Th [facility] Comment on above: Performed By: #### B MP ####[facility] Hvuqmwhgew[address] [place] [address]Dr. Shahbaz Rogel Calcium [Mass/Vol] 8.8 mg/dL Normal 8.5-10.1 [facility] Comment on above: Performed By: #### B MP ####[facility] Kwxusodkgl[address] [place] [address]Dr. Shahbaz Rogel Chloride [Moles/Vol] 107 mmol/L Normal 98-107 [facility] Comment on above: Performed By: #### B MP ####[facility] Tzdpfnojnc54[address] [place], [place] [address]Dr. Shahbaz Rogel CO2 [Moles/Vol] 26.9 mmol/L Normal 21.0-32.0 [facility] Comment on above: Performed By: #### B MP ####[facility] Yjndcjeszh69[address] [place], [place] [address]Dr. Shahbaz Rogel Creatinine [Mass/Vol] 0.81 mg/dL Normal 0.55-1.02 [facility] Comment on above: Performed By: #### B MP ####[facility] Keobwowqff869[address] [place], [place] [address]Dr. Shahbaz Rogel EGFR-AF BELGIAN >60 Normal >=60 [facility] Comment on above: Performed By: #### B MP ####[facility] Htydvfleej6[address] [place], [place] [address]Dr. Shahbaz Rogel EGFR-NON AF BELGIAN >60 Normal >=60 [facility] Comment on above: Performed By: #### B MP ####[facility] Xhouunhemx29[address] [place], [place] [address]Dr. Shahbaz Rogel Glucose [Mass/Vol] 144 mg/dL Critically high 74-106 [facility] Comment on above: Performed By: #### B MP ####[facility] Xsomaoyrmq[address] [place], [place] [address]Dr. Shahbaz Rogel Potassium [Moles/Vol] 3.6 mmol/L Normal 3.5-5.1 [facility] Comment on above: Performed By: #### B MP ####[facility] Nexgcbxvhe[address] [place] [address]Dr. Shahbaz Rogel Sodium [Moles/Vol] 143 mmol/L Normal 136-145 [facility] Comment on above: Performed By: #### B MP ####[facility] Brflydrnnq0[address] [place] [address]Dr. Shahbaz Rogel Urea nitrogen [Mass/Vol] 20.0 mg/dL Critically high 7.0-18.0 [facility] Comment on above: Performed By: #### B MP ####[facility] Arognddzxn37[address] [place], [place] [address]Dr. Shahbaz Juan F Urea nitrogen/Creatinine [Mass ratio] 24.7 mg/mg Normal [facility] Comment on above: Performed By: #### B MP ####[facility] Badpxsldqy3810[address] [place], [place] [address]Dr. Shahbaz Juan F CBC W MANUAL DIFFon 01-05-20 23 ATYPICAL LYMPH # Normal [facility] Comment on above: Performed By: #### C BCMAN ####[facility] Quwaoqbmag97[address] [place], [place] [address]Dr. Shahbaz Juan F ATYPICAL LYMPH % Normal [facility] Comment on above: Performed By: #### C BCMAN ####[facility] Rxikoplvfc2624[address] [place], [place] [address]Dr. Shahbaz Juan F BAND # 0.0 103/ul Normal 0.0-0.3 [facility] Comment on above: Performed By: #### C BCMAN ####[facility] Wymrdpnaik[address] [place], [place] [address]Dr. Shahbaz Rogel BAND % 0 % Normal 0-5 [facility] Comment on above: Performed By: #### C BCMAN ####[facility] Pftfaspali20[address] [place], [place] [address]Dr. Shahbaz Rogel BASOM # 0.00 103/ul Normal 0.00-0.10 [facility] Comment on above: Performed By: #### C BCMAN ####[facility] Xyhtptgpip3032[address] [place], [place] [address]Dr. Shahbaz Rogel BASOM % 0.0 % Critically low 0.2-2.0 [facility] Comment on above: Performed By: #### C CAIN ####[facility] Kgattkuvju[address] [place] [address]Dr. Shahbaz Rogel BLAST # Normal [facility] Comment on above: Performed By: #### C CAIN ####[facility] Wlkxbrqxbl2754 [place] [phone]. Shahbaz Rogel BLAST % Normal [facility] Comment on above: Performed By: #### C CAIN ####[facility] Pfkiwkhyjz7[address] [place], [place] [address]Dr. Shahbaz Rogel CORRECTED WBC Normal 4.0-11.0 [facility] Comment on above: Performed By: #### C CANI ####[facility] Bkuwfxxrre809467 [address] [place], [place] [address]Dr. Shahbaz Rogel EOS # 0.00 103/ul Normal 0.00-0.70 [facility] Comment on above: Performed By: #### C CAIN ####[facility] Iduoepufcs7524[address] [place], [place] [address]Dr. Shahbaz Rogel EOS% 0.0 % Critically low 0.9-7.0 [facility] Comment on above: Performed By: #### C CAIN ####[facility] Eqxgvvjlqa6156[address] [place], [place] [address]Dr. Shahbaz Rogel HCT 36.5 % Normal 36.0-48.0 [facility] Comment on above: Performed By: #### C CAIN ####[facility] Orahbmvnhr43[address] [place], [place] [address]Dr. Shahbaz Rogel HGB 11.8 g/dl Critically low 12.0-16.0 [facility] Comment on above: Performed By: #### C CAIN ####[facility] Kgarnyptab86[address] [place], [place] [address]Dr. Shahbaz Rogel LYMPHM # 0.42 103/ul Critically low 1.20-3.80 [facility] Comment on above: Performed By: #### C CAIN ####[facility] Ozivmbtmnn7275[address] [place], [place] [address]Dr. Shahbaz Rogel LYMPHM% 12.0 % Critically low 20.5-60.0 [facility] Comment on above: Performed By: #### C CAIN ####[facility] Zjmcsyzizz8719 [place] [phone]. Shahbaz Rogel MCH 28.0 pg Normal 26.7-34.0 [facility] Comment on above: Performed By: #### C CAIN ####[facility] Fmieqetayx6800 [place] [phone]. Shahbaz Rogel MCHC 32.3 g/dl Normal 29.9-35.2 [facility] Comment on above: Performed By: #### C CAIN ####[facility] Ljazvrhsoa1863 [place] [phone]. Shahbaz Rogel MCV 86.7 fL Normal 81.0-99.0 [facility] Comment on above: Performed By: #### C CAIN ####[facility] Vekvdtxciz7287 [place] [phone]. Shahbaz Rogel METAMYELOCYTE # Normal [facility] Comment on above: Performed By: #### C CAIN ####[facility] Wezmgzeqxo3022 [place] [phone]. Shahbaz Rogel METAMYELOCYTE % Normal [facility] Comment on above: Performed By: #### C CAIN ####[facility] Eucykokrrh9328 [place] [phone]. Shahbaz Rogel MONOM# 0.07 103/ul Critically low 0.30-0.80 [facility] Comment on above: Performed By: #### C CAIN ####[facility] Ubdeqbcwal8554 [place] [phone]. Shahbaz Rogel MONOM% 2.0 % Normal 1.7-12.0 [facility] Comment on above: Performed By: #### C CAIN ####[facility] Jbwcoxgtyu9238 [place] [phone]. Shahbaz Rogel MPV 9.9 fL Normal 9.5-13.5 [facility] Comment on above: Performed By: #### C CAIN ####[facility] Unwafbggdp8370 [place], [place] [address]Zw. Shahbaz Rogel MYELOCYTE # Normal [facility] Comment on above: Performed By: #### C CAIN ####[facility] Qyrmifvutr1337 [place] [phone]. Shahbaz Rogel MYELOCYTE % Normal [facility] Comment on above: Performed By: #### C CAIN ####[facility] Cubcsztoyz0232 [place] [phone]. Shahbaz Rogel NRBC Normal [facility] Comment on above: Performed By: #### C CAIN ####[facility] Lznyoknwkh0663 [place] [phone]. Shahbaz Rogel PLT 178 103/ul Normal 150-450 [facility] Comment on above: Performed By: #### C CAIN ####[facility] Kbarhntpjk6494 [place] [phone]. Shahbaz Rogel RBC 4.21 106/ul Normal 4.20-5.40 [facility] Comment on above: Performed By: #### C CAIN ####[facility] Udjdglsknz5297 [place] [phone]. Shahbaz Rogel RDW 13.2 % Normal 11.0-15.0 [facility] Comment on above: Performed By: #### C CAIN ####[facility] Kwqfhvgxac1180 [place] [phone]. Shahbaz Rogel SEG # 3.01 103/ul Normal 1.40-6.50 [facility] Comment on above: Performed By: #### C CAIN ####[facility] Kakesnaslx2183 [place] [phone]. Shahbaz Rogel SEG % 86.0 % Critically high 43.0-75.0 [facility] Comment on above: Performed By: #### C CAIN ####[facility] Lehxamewuq6780 [place] [phone]. Shahbaz Rogel WBC 3.5 103/ul Critically low 4.0-11.0 [facility] Comment on above: Performed By: #### C BCMAN ####[facility] Txdwqthmwy4647 [place] [address]Dr. Shahbaz Rogel PROF CHEM 8 (BAS METB)on Anion gap [Moles/Vol] 10.5 mmol/L Normal Th [facility] Comment on above: Performed By: #### B MP ####[facility] Cvxcqoaaly7[address] [place] [address]Dr. Shahbaz Rogel Calcium [Mass/Vol] 8.7 mg/dL Normal 8.5-10.1 [facility] Comment on above: Performed By: #### B MP ####[facility] Dylwjzdmwv7647 [place] [address]Dr. Shahbaz Rogel Chloride [Moles/Vol] 108 mmol/L Critically high 98-107 [facility] Comment on above: Performed By: #### B MP ####[facility] Svlxmiqsas24[address] [place], [place] [address]Dr. Shahbaz Rogel CO2 [Moles/Vol] 25.2 mmol/L Normal 21.0-32.0 [facility] Comment on above: Performed By: #### B MP ####[facility] Atdcmfdlyz[address] [place], [place] [address]Dr. Shahbaz Rogel Creatinine [Mass/Vol] 0.77 mg/dL Normal 0.55-1.02 [facility] Comment on above: Performed By: #### B MP ####[facility] Tlpmkjxlrm6420[address] [place], [place] [address]Dr. Shahbaz Rogel EGFR-AF BELGIAN >60 Normal >=60 [facility] Comment on above: Performed By: #### B MP ####[facility] Hlgdevywnu01[address] [place] [address]Dr. Shahbaz Rogel EGFR-NON AF BELGIAN >60 Normal >=60 [facility] Comment on above: Performed By: #### B MP ####[facility] Ovbwckooxl8817 [place] [address]Dr. Shahbaz Rogel Glucose [Mass/Vol] 169 mg/dL Critically high 74-106 [facility] Comment on above: Performed By: #### B MP ####[facility] Yebbisupyj7135 [place] [address]Dr. Shahbaz Rogel Potassium [Moles/Vol] 3.7 mmol/L Normal 3.5-5.1 [facility] Comment on above: Performed By: #### B MP ####[facility] Lzjqwdgjtz9386 [place] [address]Dr. Shahbaz Rogel Sodium [Moles/Vol] 140 mmol/L Normal 136-145 [facility] Comment on above: Performed By: #### B MP ####[facility] Ifljrzybwy5[address] [place], [place] [address]Dr. Shahbaz Rogel Urea nitrogen [Mass/Vol] 14.0 mg/dL Normal 7.0-18.0 [facility] Comment on above: Performed By: #### B MP ####[facility] Npezmmayvm8130[address] [place], [place] [address]Dr. Shahbaz Rogel Urea nitrogen/Creatinine [Mass ratio] 18.2 mg/mg Normal [facility] Comment on above: Performed By: #### B MP ####[facility] Ezfymoxlqa320867 [address] [place], [place] [address]Dr. Shahbaz Rogel RESPIRATORY PANEL PLUSon Adenovirus Not detected Normal NOT DETECTED [facility] Comment on above: Performed By: #### R SPLUS ####[facility] Eikbbpyrtf5499[address] [place], [place] [address]Dr. Shahbaz Rogel B. Parapertusis Not detected Normal NOT DETECTED [facility] Comment on above: Performed By: #### R SPLUS ####[facility] Somylumflp667967 [address] [place], [place] [address]Dr. Shahbaz Rogel B. Pertussis Not detected Normal NOT DETECTED [facility] Comment on above: Performed By: #### R SPLUS ####[facility] Faljdjeydx4008[address] [place], [place] [address]Dr. Shahbaz Rogel Chlamydia Pneumoniae Not detected Normal NOT DETECTED [facility] Comment on above: Performed By: #### R SPLUS ####[facility] Uvpmxhmvdh414[address] [place], [place] [address]Dr. Shahbaz Rogel Coronavirus 229E Not detected Normal NOT DETECTED [facility] Comment on above: Performed By: #### R SPLUS ####[facility] Dbfgpbfzmr49[address] [place] [address]Dr. Shahbaz [facility] Coronavirus HKU1 Not detected Normal NOT DETECTED [facility] Comment on above: Performed By: #### R SPLUS ####[facility] Wnjqfgrtgi3873 [place] [address]Dr. Shahbaz Rogel Coronavirus NL63 Not detected Normal NOT DETECTED [facility] Comment on above: Performed By: #### R SPLUS ####[facility] Rlmsdwlezq7185[address] [place], [place] [address]Dr. Shahbaz [facility] Coronavirus OC43 Not detected Normal NOT DETECTED [facility] Comment on above: Performed By: #### R SPLUS ####[facility] Yhbglracih623667 [address] [place], [place] [address]Dr. Shahbaz Rogel Influenza A H1 Not detected Normal NOT DETECTED [facility] Comment on above: Performed By: #### R SPLUS ####[facility] Bfwjxsujpe1834[address] [place], [place] [address]Dr. Shahbaz Rogel Influenza A H1 2009 Not detected Normal NOT DETECTED [facility] Comment on above: Performed By: #### R SPLUS ####[facility] Hckgjwcqhq[address] [place], [place] [address]Dr. Shahbaz Rogel Influenza A H3 Not detected Normal NOT DETECTED [facility] Comment on above: Performed By: #### R SPLUS ####[facility] Bboeryivqi073667 [address] [place], [place] [address]Dr. Shahbaz Rogel Influenza B Not detected Normal NOT DETECTED [facility] Comment on above: Performed By: #### R SPLUS ####[facility] Exoccfttsk705067 [address] [place], [place] [address]Dr. Lilalan Rogel Metapneumovirus Detected Abnormal NOT DETECTED [facility] Comment on above: Performed By: #### R SPLUS ####[facility] Mbpbdljtki924467 [address] [place], [place] [address]Dr. Shahbaz Rogel Mycoplas. Pneumoniae Not detected Normal NOT DETECTED [facility] Comment on above: Performed By: #### R SPLUS ####[facility] Rnnthrungj068067 [address] [place], [place] [address]Dr. Shahbaz Rogel Parainfluenza 1 Not detected Normal NOT DETECTED [facility] Comment on above: Performed By: #### R SPLUS ####[facility] Urokultsog709[address] [place], [place] [address]Dr. Shahbaz Rogel Parainfluenza 2 Not detected Normal NOT DETECTED [facility] Comment on above: Performed By: #### R SPLUS ####[facility] Yhkjoqwmbn833[address] [place], [place] [address]Dr. Shahbaz Rogel Parainfluenza 3 Not detected Normal NOT DETECTED [facility] Comment on above: Performed By: #### R SPLUS ####[facility] Aekwacrtap[address] [place], [place] [address]Dr. Shahbaz Rogel Parainfluenza 4 Not detected Normal NOT DETECTED [facility] Comment on above: Performed By: #### R SPLUS ####[facility] Kkrxdqmtbb1926[address] [place], [place] [address]Dr. Shahbaz Rogel Rhino/Enterovirus Not detected Normal NOT DETECTED [facility] Comment on above: Performed By: #### R SPLUS ####[facility] Hoohtkbhmn9727[address] [place], [place] [address]Dr. Shahbaz Rogel RP2 Header 1 RESPIRATORY PANEL: VIRUSES Normal [facility] Comment on above: Performed By: #### R SPLUS ####[facility] Lreoyyfbzc2310[address] [place], [place] [address]Dr. Shahbaz Rogel RP2 Header 2 RESPIRATORY PANEL: BACTERIA Normal [facility] Comment on above: Performed By: #### R SPLUS ####[facility] Trqacqujkn583467 [address] [place], [place] [address]Dr. Shahbaz Rogel RSV Not detected Normal NOT DETECTED [facility] Comment on above: Performed By: #### R SPLUS ####[facility] Vbxpslvkie332667 [address] [place], [place] [address]Dr. Shahbaz Rogel SARS-CoV-2 (COVID-19) RNA PAVAN+probe Ql (Unsp spec) Not detected Normal NOT DETECTED [facility] Comment on above: Performed By: #### R SPLUS ####[facility] Nczeabcscl7051 [place] [address]Dr. Shahbaz Rogel CARDIAC ROSALINA 3-6on 3 CK [Catalytic activity/Vol] 148 U/L Normal 26-192 [facility] Comment on above: Performed By: #### C MREP ####[facility] Egikozvfzf9657 [place] [address]Dr. Shahbaz Rogel CK.MB [Mass/Vol] 0.84 ng/mL Normal <=3.60 [facility] Comment on above: Performed By: #### C MREP ####[facility] Awxdpljlvc5065[address] [place], [place] [address]Dr. Shahbaz Rogel HSTROP 6.4 pg/mL Normal 4.0-51.3 [facility] Comment on above: Result Comment: CUT- OFF POINTS HAVE BEEN ESTABLISHED BASED ON THE FOURTH UNIVERSAL DEFINITIONS OF MYOCARDIALINFARCTION. THE UPPER REFERENCE LIMIT (URL) OF TROPONIN, DEFINED THE 99TH PERCENTILE OFcTnI DISTRIBUTION IN A REFERENCE POPULATION, HAS BEEN CONFIRMED THE DECISION THRESHOLDFOR [place] DIAGNOSIS. Performed By: #### C MREP ####[facility] Llvziraick[address] [place], [place] [address]Dr. Shahbaz Rogel CBC W MANUAL DIFFon 01-04-20 23 ATYPICAL LYMPH # Normal [facility] Comment on above: Performed By: #### C BCMAN ####[facility] Brrjwywwdv28[address] [place] [address]Dr. Shahbaz Juan F ATYPICAL LYMPH % Normal [facility] Comment on above: Performed By: #### C BCMAN ####[facility] Fdpojbogtq9753 [place] [address]Dr. Shahbaz Rogel BAND # 0.0 103/ul Normal 0.0-0.3 [facility] Comment on above: Performed By: #### C BCMAN ####[facility] Zlguqifmxj5846 [place] [address]Dr. Shahbaz Rogel BAND % 0 % Normal 0-5 [facility] Comment on above: Performed By: #### C BCMAN ####[facility] Jswhvpkris9528 [place] [phone]. Shahbaz Rogel BASOM # 0.00 103/ul Normal 0.00-0.10 [facility] Comment on above: Performed By: #### C CAIN ####[facility] Pxlvlvvatp4591 [place] [address]Dr. Shahbaz Rogel BASOM % 0.0 % Critically low 0.2-2.0 [facility] Comment on above: Performed By: #### C CAIN ####[facility] Rjtwvyryrn6910 [place] [address]Dr. Shahbaz Rogel BLAST # Normal [facility] Comment on above: Performed By: #### C CAIN ####[facility] Cdxinuqwko37[address] [place], [place] [address]Dr. Shahbaz Rogel BLAST % Normal [facility] Comment on above: Performed By: #### C CAIN ####[facility] Lzupgutlmu25[address] [place], [place] [address]Dr. Shahbaz Rogel CORRECTED WBC Normal 4.0-11.0 [facility] Comment on above: Performed By: #### C CAIN ####[facility] Pkevjpocbx4717[address] [place], [place] [address]Dr. Shahbaz Rogel EOS # 0.02 103/ul Normal 0.00-0.70 [facility] Comment on above: Performed By: #### C CAIN ####[facility] Qovicudcsh137[address] [place], [place] [address]Dr. Shahbaz Rogel EOS% 1.0 % Normal 0.9-7.0 [facility] Comment on above: Performed By: #### C CAIN ####[facility] Dqlypcsrig85[address] [place], [place] [address]Dr. Shahbaz Rogel HCT 37.5 % Normal 36.0-48.0 [facility] Comment on above: Performed By: #### C CAIN ####[facility] Ukhdmzakgk920[address] [place], [place] [address]Dr. Shahbaz Rogel HGB 12.0 g/dl Normal 12.0-16.0 [facility] Comment on above: Performed By: #### C CAIN ####[facility] Ghgmukshmk2885 [place] [phone]. Shahbaz Rogel LYMPHM # 0.21 103/ul Critically low 1.20-3.80 [facility] Comment on above: Performed By: #### C CAIN ####[facility] Cdldlzmrke1003 [place] [phone]. Shahbaz Rogel LYMPHM% 13.0 % Critically low 20.5-60.0 [facility] Comment on above: Performed By: #### C CAIN ####[facility] Oaiuonhsxc2171 [place] [phone]. Shahbaz Rogel MCH 27.8 pg Normal 26.7-34.0 [facility] Comment on above: Performed By: #### C CAIN ####[facility] Qrsxxbuoex5769 [place] [address]Dr. Shahbaz Rogel MCHC 32.0 g/dl Normal 29.9-35.2 [facility] Comment on above: Performed By: #### C CAIN ####[facility] Fgolqqnxxd1049 [place] [phone]. Shahbaz Rogel MCV 86.8 fL Normal 81.0-99.0 [facility] Comment on above: Performed By: #### C CAIN ####[facility] Vlgxtuecuf2864 [place] [phone]. Shahbaz Rogel METAMYELOCYTE # Normal [facility] Comment on above: Performed By: #### C CAIN ####[facility] Tpcaxkzdix7343 [place] [phone]. Shahbaz Rogel METAMYELOCYTE % Normal [facility] Comment on above: Performed By: #### C CAIN ####[facility] Pzifsekmwt110[address] [place], [place] [address]Dr. Shahbaz Rogel MONOM# 0.02 103/ul Critically low 0.30-0.80 [facility] Comment on above: Performed By: #### C CAIN ####[facility] Mbkvexwaer8515 [place] [phone]. Shahbaz Rogel MONOM% 1.0 % Critically low 1.7-12.0 [facility] Comment on above: Performed By: #### C CAIN ####[facility] Ddmpnqipjx8709 [place] [address]Dr. Shahbaz Rogel MPV 9.5 fL Normal 9.5-13.5 [facility] Comment on above: Performed By: #### C CAIN ####[facility] Whwsqosxdj5473 [place] [phone]. Shahbaz Rogel MYELOCYTE # Normal [facility] Comment on above: Performed By: #### C CAIN ####[facility] Wkkvmzdxfk6221 [place] [phone]. Shahbaz Rogel MYELOCYTE % Normal [facility] Comment on above: Performed By: #### C CAIN ####[facility] Ezgfqkubec6122 [place] [address]Dr. Shahbaz Rogel NRBC Normal [facility] Comment on above: Performed By: #### C CAIN ####[facility] Tkbbxoggah713[address] [place], [place] [address]Dr. Shahbaz Rogel PLT 173 103/ul Normal 150-450 [facility] Comment on above: Performed By: #### C CAIN ####[facility] Wekmbtfpxq10[address] [place], [place] [address]Dr. Shahbaz Rogel RBC 4.32 106/ul Normal 4.20-5.40 [facility] Comment on above: Performed By: #### C CAIN ####[facility] Osijoutvgh7177 [place] [phone]. Shahbaz Rogel RDW 13.1 % Normal 11.0-15.0 [facility] Comment on above: Performed By: #### C CAIN ####[facility] Xyevyentji39[address] [place], [place] [address]Dr. Shahbaz Rogel SEG # 1.36 103/ul Critically low 1.40-6.50 [facility] Comment on above: Performed By: #### C CAIN ####[facility] Tajggwgibo006467 [address] [place], [place] [address]Dr. Shahbaz Rogel SEG % 85.0 % Critically high 43.0-75.0 [facility] Comment on above: Performed By: #### C CIAN ####[facility] Yuskjjzwsb1948[address] [place], [place] [address]Dr. Shahbaz Rogel WBC 1.6 103/ul Critically low 4.0-11.0 [facility] Comment on above: Performed By: #### C CAIN ####[facility] Swffzjbhxq52[address] [place], [place] [address]Dr. Shahbaz Rogel CT CHEST WO CONon 01-03-2023 CT CHEST WO CON Normal [facility] ER URINE PROFILEon 3 Bilirubin Ql (U) Negative Normal NEGATIVE [facility] Comment on above: Performed By: #### E RUR ####[facility] Pyrshcwydo6[address] [place], [place] [address]Dr. Shahbaz Rogel Clarity (U) CLEAR Normal CLEAR [facility] Comment on above: Performed By: #### E RUR ####[facility] Kzwtdczerq6[address] [place], [place] [address]Dr. Shahbaz Rogel Color (U) LT. YELLOW Normal YELLOW [facility] Comment on above: Performed By: #### E RUR ####[facility] Eejzhlwcuf65[address] [place], [place] [address]Dr. Shahbaz Rogel ERUAHD A micrscopic examina tion will be performed if indicated. Normal [facility] Comment on above: Performed By: #### E RUR ####[facility] Aqsocrkwkd4439[address] [place], [place] [address]Dr. Shahbaz Rogel Glucose Ql (U) Negative Normal NEGATIVE [facility] Comment on above: Performed By: #### E RUR ####[facility] Pvhhjegfke4799[address] [place], [place] [address]Dr. Shahbaz Rogel Hemoglobin Ql (U) Negative Normal NEGATIVE [facility] Comment on above: Performed By: #### E RUR ####[facility] Rhdooumtok6354[address] [place], [place] [address]Dr. Shahbaz Rogel Ketones Ql (U) Negative Normal NEGATIVE [facility] Comment on above: Performed By: #### E RUR ####[facility] Vpqjdcreem23[address] [place] [address]Dr. Lilajarrod Juan F LEUKOCYTES Negative Normal NEGATIVE [facility] [facility] Comment on above: Performed By: #### E RUR ####[facility] Vyglzcprxf[address] [place], [place] [address]Dr. Lilajarrod Rogel Nitrite Ql (U) Negative Normal NEGATIVE [facility] Comment on above: Performed By: #### E RUR ####[facility] Zkpukxoxuh7640[address] [place], [place] [address]Dr. Shahbaz Rogel pH (U) 6.0 [pH] Normal 5-9 [facility] Comment on above: Performed By: #### E RUR ####[facility] Vecvuwhowc4226[address] [place], [place] [address]Dr. Shahbaz Rogel SPEC GRAVITY <=1.005 Abnormal 1.005-<=1. 025 [facility] Comment on above: Performed By: #### E RUR ####[facility] Xwhtkaitfi936467 [address] [place], [place] [address]Dr. Shahbaz Rogel UA PROTEIN Negative Normal NEGATIVE/ TRACE [facility] Comment on above: Performed By: #### E RUR ####[facility] Ztzvcpbsop53[address] [place], [place] [address]Dr. Shahbaz Rogel UR MICRO IND NOT INDICATED Normal [facility] Comment on above: Performed By: #### E RUR ####[facility] Vzlcajrroy3368[address] [place], [place] [address]Dr. Shahbaz Rogel Urobilinogen Qn (U) 0.2 {Melida'U}/dL Normal 0.2 - 1. 0 [facility] Comment on above: Performed By: #### E RUR ####[facility] Ppvqjonoyk1179[address] [place], [place] [address]Dr. Shahbaz Rogel LACTATE/LACTIC ACIDon 2022 Lactate [Moles/Vol] 1.5 mmol/L Normal 0.4-2.0 [facility] Comment on above: Performed By: #### L ACT ####[facility] Kirfiofelv072967 [address] [place], [place] [address]Dr. Shahbaz Rogel PROF CHEM 8 (BAS METB)on Anion gap [Moles/Vol] 11.6 mmol/L Normal [facility] Comment on above: Performed By: #### B MP ####[facility] [address]ax[address] [place] [address]Dr. Shahbaz Rogel Calcium [Mass/Vol] 8.1 mg/dL Critically low 8.5-10.1 [facility] Comment on above: Performed By: #### B MP ####[facility] Hiigwgdrwd033[address] [place] [address]Dr. Shahbaz Rogel Chloride [Moles/Vol] 109 mmol/L Critically high 98-107 [facility] Comment on above: Performed By: #### B MP ####[facility] Lkmaqphfgk4498[address] [place], [place] [address]Dr. Shahbaz Rogel CO2 [Moles/Vol] 25.2 mmol/L Normal 21.0-32.0 [facility] Comment on above: Performed By: #### B MP ####[facility] Rvjhdpkvyv776467 [address] [place], [place] [address]Dr. Shahbaz Rogel Creatinine [Mass/Vol] 0.89 mg/dL Normal 0.55-1.02 [facility] Comment on above: Performed By: #### B MP ####[facility] Ukvihfmkfs278367 [address] [place], [place] [address]Dr. Shahbaz Rogel EGFR-AF BELGIAN >60 Normal >=60 [facility] Comment on above: Performed By: #### B MP ####[facility] Agszbmtopl39[address] [place] [address]Dr. Shahbaz Rogel EGFR-NON AF BELGIAN >60 Normal >=60 [facility] Comment on above: Performed By: #### B MP ####[facility] Gnbavhqznr5890[address] [place], [place] [address]Dr. Shahbaz Rogel Glucose [Mass/Vol] 167 mg/dL Critically high 74-106 [facility] Comment on above: Performed By: #### B MP ####[facility] Debskgpwoh181367 [address] [place], [place] [address]Dr. Shahbaz Rogel Potassium [Moles/Vol] 3.8 mmol/L Normal 3.5-5.1 [facility] Comment on above: Performed By: #### B MP ####[facility] Dadzfkqoyw23[address] [place] [address]Dr. Shahbaz Rogel Sodium [Moles/Vol] 142 mmol/L Normal 136-145 [facility] Comment on above: Performed By: #### B MP ####[facility] Emjjuzkusc[address] [place], [place] [address]Dr. Shahbaz Rogel Urea nitrogen [Mass/Vol] 9.0 mg/dL Normal 7.0-18.0 [facility] Comment on above: Performed By: #### B MP ####[facility] Xqgkdoltek4615[address] [place], [place] [address]Dr. Shahbaz Rogel Urea nitrogen/Creatinine [Mass ratio] 10.1 mg/mg Normal [facility] Comment on above: Performed By: #### B MP ####[facility] Hocxzwzjlp125[address] [place], [place] [address]Dr. Shahbaz Rogel CARDIAC ROSALINA ADMITon 023 CK [Catalytic activity/Vol] 173 U/L Normal 26-192 [facility] Comment on above: Performed By: #### C EZEKIEL, BMP ####[facility] Bpzgmmonei109667 [address] [place], [place] [address]Dr. Shahbaz Rogel CK.MB [Mass/Vol] 0.55 ng/mL Normal <=3.60 [facility] Comment on above: Performed By: #### C EZEKIEL, BMP ####[facility] Kxzuvaiaze5[address] [place], [place] [address]Dr. Shahbaz Rogel HSTROP 5.9 pg/mL Normal 4.0-51.3 [facility] Comment on above: Result Comment: CUT- OFF POINTS HAVE BEEN ESTABLISHED BASED ON THE FOURTH UNIVERSAL DEFINITIONS OF MYOCARDIALINFARCTION. THE UPPER REFERENCE LIMIT (URL) OF TROPONIN, DEFINED THE 99TH PERCENTILE OFcTnI DISTRIBUTION IN A REFERENCE POPULATION, HAS BEEN CONFIRMED THE DECISION THRESHOLDFOR [place] DIAGNOSIS. Performed By: #### C EZEKIEL, BMP ####[facility] Puyxhqxrft[address] [place] [address]Dr. Shahbaz Rogel LEN 76 ng/mL Normal 9-82 [facility] Comment on above: Performed By: #### C EZEKIEL, BMP ####[facility] Xgaiexsufz7459[address] [place], [place] [address]Dr. Shahbaz Juan F CBC W MANUAL DIFFon 01-03-20 23 ATYPICAL LYMPH # Normal [facility] Comment on above: Performed By: #### C BCMAN ####[facility] Khmvpmjncl106[address] [place], [place] [address]Dr. Shahbaz Rogel ATYPICAL LYMPH % Normal [facility] Comment on above: Performed By: #### C CHANELMAN ####[facility] Qdiynohtwr16[address] [place], [place] [address]Dr. Shahbaz Juan F BAND # Normal 0.0-0.3 [facility] Comment on above: Performed By: #### C CAIN ####[facility] Clvlmujuss06[address] [place], [place] [address]Dr. Shahbaz Rogel BAND % Normal 0-5 [facility] Comment on above: Performed By: #### C CAIN ####[facility] Qkbliseskb020767 [address] [place], [place] [address]Dr. Shahbaz Juan F BASOM # 0.00 103/ul Normal 0.00-0.10 [facility] Comment on above: Performed By: #### C CAIN ####[facility] Kaisqxixtv7708[address] [place], [place] [address]Dr. Shahbaz Rogel BASOM % 0.0 % Critically low 0.2-2.0 [facility] Comment on above: Performed By: #### C CAIN ####[facility] Uifgcxtrze396367 [address] [place], [place] [address]Dr. Lilajarrod Rogel BLAST # Normal [facility] Comment on above: Performed By: #### C CHANELMAN ####[facility] Mztxsswlmq0169[address] [place], [place] [address]Dr. Lilajarrod Rogel BLAST % Normal [facility] Comment on above: Performed By: #### C CAIN ####[facility] Cksdnzcxeb452267 [address] [place], [place] [address]Dr. Shahbaz Rogel CORRECTED WBC Normal 4.0-11.0 [facility] Comment on above: Performed By: #### C CAIN ####[facility] Ieziymxfkw2467 [place] [address]Dr. Shahbaz Rogel EOS # 0.03 103/ul Normal 0.00-0.70 [facility] Comment on above: Performed By: #### C CAIN ####[facility] Zwlzrfhdir2162 [place] [address]Dr. Shahbaz Rogel EOS% 1.0 % Normal 0.9-7.0 [facility] Comment on above: Performed By: #### C CAIN ####[facility] Tyefemrlaw4[address] [place] [address]Dr. Shahbaz Rogel HCT 42.8 % Normal 36.0-48.0 [facility] Comment on above: Performed By: #### C CAIN ####[facility] Ioctqhuuxi6530[address] [place], [place] [address]Dr. Shahbaz Rogel HGB 14.1 g/dl Normal 12.0-16.0 [facility] Comment on above: Performed By: #### C CAIN ####[facility] Vdwdxibsaq847867 [address] [place], [place] [address]Dr. Shahbaz Rogel LYMPHM # 0.64 103/ul Critically low 1.20-3.80 [facility] Comment on above: Performed By: #### C CAIN ####[facility] Lwolkqzuvb9200[address] [place], [place] [address]Dr. Shahbaz Rogel LYMPHM% 23.0 % Normal 20.5-60.0 [facility] Comment on above: Performed By: #### C CAIN ####[facility] Hoaqmbglwo492367 [address] [place], [place] [address]Dr. Shahbaz Rogel MCH 28.0 pg Normal 26.7-34.0 [facility] Comment on above: Performed By: #### C CAIN ####[facility] Lwppqlbbep850067 [address] [place], [place] [address]Dr. Shahbaz Rogel MCHC 32.9 g/dl Normal 29.9-35.2 [facility] Comment on above: Performed By: #### C CAIN ####[facility] Gnuadauqml[address] [place] [id number]. Shahbaz Rogel MCV 84.9 fL Normal 81.0-99.0 [facility] Comment on above: Performed By: #### C CAIN ####[facility] Nlwvkdkeas98[address] [place] [phone]. Shahbaz Rogel METAMYELOCYTE # Normal [facility] Comment on above: Performed By: #### C CAIN ####[facility] Teubbhwmzv58[address] [place] [phone]. Shahbaz Rogel METAMYELOCYTE % Normal [facility] Comment on above: Performed By: #### C CAIN ####[facility] Elggxzjnsh[address] [place], [place] [address]Dr. Shahbaz Rogel MONOM# 0.31 103/ul Normal 0.30-0.80 [facility] Comment on above: Performed By: #### C CAIN ####[facility] Fpeaiuxaea3056[address] [place], [place] [address]Dr. Shahbaz Rogel MONOM% 11.0 % Normal 1.7-12.0 [facility] Comment on above: Performed By: #### Cheri BARLOW ####[facility] Dfvflgfsyc8648[address] [place], [place] [address]Dr. Shahbaz Rogel MPV 9.5 fL Normal 9.5-13.5 [facility] Comment on above: Performed By: #### Cheri BARLOW ####[facility] Icpduoemnh[address] [place], [place] [id number]. Shahbaz Rogel MYELOCYTE # Normal [facility] Comment on above: Performed By: #### C CAIN ####[facility] Bcvcqhxvuu4[address] [place] [phone]. Shahbaz Rogel MYELOCYTE % Normal [facility] Comment on above: Performed By: #### C CAIN ####[facility] Dobxykmcmr25[address] [place] [address]Dr. Shahbaz Rogel NRBC Normal [facility] Comment on above: Performed By: #### Cheri BARLOW ####[facility] Ebfepstfys60[address] [place], [place] [address]Ff. Shahbaz Rogel PLT 197 103/ul Normal 150-450 [facility] Comment on above: Performed By: #### Cheri BARLOW ####[facility] Kleebeadgg5224 [place], [place] [address]Dg. Shahbaz Rogel RBC 5.04 106/ul Normal 4.20-5.40 [facility] Comment on above: Performed By: #### Cheri BARLOW ####[facility] Wgdaubjzms2274 [place], [place] [address]Wy. Shahbaz Rogel RDW 13.2 % Normal 11.0-15.0 [facility] Comment on above: Performed By: #### Cheri BARLOW ####[facility] Iqbblcvkgv6361 [place], [place] [address]Ti. Shahbaz Rogel SEG # 1.82 103/ul Normal 1.40-6.50 [facility] Comment on above: Performed By: #### Cheri BARLOW ####[facility] Ymjxglatpc5968 [place], [place] [address]Hx. Shahbaz Rogel SEG % 65.0 % Normal 43.0-75.0 [facility] Comment on above: Performed By: #### Cheri BARLOW ####[facility] Fxuwwfxrjo8363 [place], [place] [address]So. Shahbaz Rogel WBC 2.8 103/ul Critically low 4.0-11.0 [facility] Comment on above: Performed By: #### Cheri BARLOW ####[facility] Wlfeaitnjj6559 [place] [phone]. Shahbaz Rogel Cov[facility]-19 PCR ([facility])on SARS-CoV-2 (COVID-19) RNA PAVAN+probe Ql (Unsp spec) Not detected Normal NOT DETECTED [facility] Comment on above: Result Comment: When [...] for this test is supported by the Commercial Front Load Operator of Health and Human Service's declaration [...] be used). Performed By: #### C VDTBH ####[facility] Ebabdqcrbi24[address] [place], [place] [address]DrChen Rogel D-DIMERon 01-02-2023 D-DIMER 0.38 mg/L FEU Normal <=0.59 [facility] Comment on above: Performed By: #### D DIM ####[facility] Oexmuhcbah[address] [place], [place] [address]DrChen Rogel D-DIMER COMMENTS SEE BELOW Normal [facility] Comment on above: Result Comment: Incr [...] generalized hospitalization. Performed By: #### D DIM ####[facility] Fbsxryjbla2[address] [place] [address]Dr. Shahbaz Rogel LACTATE/LACTIC ACIDon 2022 Lactate [Moles/Vol] 2.1 mmol/L Critically high 0.4-2.0 [facility] Comment on above: Performed By: #### L ACT ####[facility] Ldqtuglsmf8196[address] [place], [place] [address]DrChen Rogel PROF CHEM 8 (BAS METB)on Anion gap [Moles/Vol] 14.3 mmol/L Normal [facility] Comment on above: Performed By: #### C EZEKIEL, BMP ####[facility] Lqwnwoebmw7422 [place] [address]Dr. Shahbaz Rogel Calcium [Mass/Vol] 9.0 mg/dL Normal 8.5-10.1 [facility] Comment on above: Performed By: #### C JOSSYM, BMP ####[facility] Lozybufsec6865 [place] [address]Dr. Shahbaz Rogel Chloride [Moles/Vol] 102 mmol/L Normal 98-107 [facility] Comment on above: Performed By: #### C EZEKIEL, BMP ####[facility] Ivjtnqezgd6730 [place] [address]Dr. Shahbaz Rogel CO2 [Moles/Vol] 25.5 mmol/L Normal 21.0-32.0 [facility] Comment on above: Performed By: #### C EZEKIEL, BMP ####[facility] Lzwhxszpfk6212[address] [place], [place] [address]Dr. Shahbaz Rogel Creatinine [Mass/Vol] 1.01 mg/dL Normal 0.55-1.02 [facility] Comment on above: Performed By: #### C EZEKIEL, BMP ####[facility] Snjwzdwwhf[address] [place], [place] [address]Dr. Shahbaz Rogel EGFR-AF BELGIAN >60 Normal >=60 [facility] Comment on above: Performed By: #### C EZEKIEL, BMP ####[facility] Zmlaxndzsd8649[address] [place], [place] [address]Dr. Shahbaz Rogel EGFR-NON AF BELGIAN 56 mL/min/1.73m2 Critically low >=60 [facility] Comment on above: Performed By: #### C EZEKIEL, BMP ####[facility] Cxqjpcqspf100[address] [place], [place] [address]Dr. Shahbaz Rogel Glucose [Mass/Vol] 105 mg/dL Normal 74-106 [facility] Comment on above: Performed By: #### C MADM, BMP ####[facility] Uahzovnpfv6214[address] [place], [place] [address]Dr. Shahbaz Rogel Potassium [Moles/Vol] 3.8 mmol/L Normal 3.5-5.1 [facility] Comment on above: Performed By: #### C EZEKIEL, BMP ####[facility] Pdifjjybqg5050[address] [place], [place] [address]Dr. Shahbaz Rogel Sodium [Moles/Vol] 138 mmol/L Normal 136-145 [facility] Comment on above: Performed By: #### C EZEKIEL, BMP ####[facility] Zjthmcxeai0225[address] [place], [place] [address]Dr. Shahbaz Rogel Urea nitrogen [Mass/Vol] 9.0 mg/dL Normal 7.0-18.0 [facility] Comment on above: Performed By: #### C EZEKIEL, BMP ####[facility] Gtrawkhjhn5708[address] [place], [place] [address]Dr. Shahbaz Rogel Urea nitrogen/Creatinine [Mass ratio] 8.9 mg/mg Normal [facility] Comment on above: Performed By: #### C EZEKIEL, BMP ####[facility] Uzqfuwtfzo2798[address] [place], [place] [address]Dr. Shahbaz Rogel XR CHEST 1 Von 01-02-2023 XR CHEST 1 V Normal [facility] INSULINon 11-02-2022 Insulin 6.0 uIU/mL Normal 2.6-24.9 [facility] Comment on above: Performed By: #### I NSULIN ####[facility] Tuvkgfovmp500[address] [place], [place] [address]Dr. Shahbaz Rogel CBC AUTO DIFFon 11-01-2022 BASO # 0.0 103/ul Normal 0.0-0.1 [facility] Comment on above: Performed By: #### C BC ####[facility] Wnemtlltqz7567[address] [place], [place] [address]Dr. Shahbaz Rogel Basophils/100 WBC (Bld) 0.5 % Normal 0.2-2.0 [facility] Comment on above: Performed By: #### C BC ####[facility] Rdfrwdunel445767 [address] [place], [place] [address]Dr. Shahbaz Rogel EO # 0.2 103/ul Normal 0.0-0.7 [facility] Comment on above: Performed By: #### C BC ####[facility] Uyytdzwbxl8852 [place] [address]Dr. Shahbaz Rogel Eosinophils/100 WBC (Bld) 5.2 % Normal 0.9-7.0 [facility] Comment on above: Performed By: #### C BC ####[facility] Dhdtsgjgko6596[address] [place], [place] [address]Dr. Shahbaz Rogel Erythrocyte distribution width (RBC) [Ratio] 12.7 % Normal 11.0-15.0 [facility] Comment on above: Performed By: #### C BC ####[facility] Tbkrmwnhky022[address] [place], [place] [address]Dr. Shahbaz Rogel Hematocrit (Bld) [Volume fraction] 46.4 % Normal 36.0-48.0 [facility] Comment on above: Performed By: #### C BC ####[facility] Pdsrgyuttl1214[address] [place], [place] [address]Dr. Shahbaz Rogel Hemoglobin (Bld) [Mass/Vol] 14.9 g/dL Normal 12.0-16.0 [facility] Comment on above: Performed By: #### C BC ####[facility] Jpjcesrbwj2337[address] [place], [place] [address]Dr. Shahbaz Rogel IG # 0.00 10e3/ul Normal 0.00-0.03 [facility] Comment on above: Performed By: #### C BC ####[facility] Dstxkhmlri2667[address] [place], [place] [address]Dr. Shahbaz Rogel IG % 0.0 % Normal 0.0-0.5 [facility] Comment on above: Performed By: #### C BC ####[facility] Tokjxpkdsh1697[address] [place], [place] [address]Dr. Shahbaz Rogel LYMPH # 1.1 103/ul Critically low 1.2-3.8 [facility] Comment on above: Performed By: #### C BC ####[facility] Kyxkdmnube5039[address] [place], [place] [address]Dr. Shahbaz Rogel Lymphocytes/100 WBC (Bld) 25.5 % Normal 20.5-60.0 [facility] Comment on above: Performed By: #### C BC ####[facility] Szrjhoimun[address] [place] [address]Dr. Shahbaz Rogel MANUAL DIFF REQ NO Normal [facility] Comment on above: Performed By: #### C BC ####[facility] Wrkczpzsyo7079 [place] [phone]. Shahbaz Rogel MCH (RBC) [Entitic mass] 27.8 pg Normal 26.7-34.0 [facility] Comment on above: Performed By: #### C BC ####[facility] Gocwfrhqqs[address]2 [place] [address]Dr. Shahbaz Rogel MCHC (RBC) [Mass/Vol] 32.1 g/dL Normal 29.9-35.2 [facility] Comment on above: Performed By: #### C BC ####[facility] Wvkmrprlur8624[address] [place], [place] [address]Dr. Shahbaz Rogel MCV (RBC) [Entitic vol] 86.6 fL Normal 81.0-99.0 [facility] Comment on above: Performed By: #### C BC ####[facility] Umnvglqseq17[address] [place], [place] [address]Dr. Shahbaz Rogel MONO # 0.2 103/ul Critically low 0.3-0.8 [facility] Comment on above: Performed By: #### C BC ####[facility] Lxvcmtbety6[address] [place], [place] [address]Dr. Shahbaz Rogel Monocytes/100 WBC (Bld) 5.4 % Normal 1.7-12.0 [facility] Comment on above: Performed By: #### C BC ####[facility] Fuyquzgdcy[address] [place], [place] [address]DrChen Rogel NEUT # 2.7 103/ul Normal 1.4-6.5 [facility] Comment on above: Performed By: #### C BC ####[facility] Qmnxhhqqlh5839[address] [place], [place] [address]Dr. Shahbaz Rogel Neutrophils/100 WBC (Bld) 63.4 % Normal 43.0-75.0 [facility] Comment on above: Performed By: #### C BC ####[facility] Vkojslnkhu5[address] [place] [phone]. Shahbaz Rogel Platelet mean volume (Bld) [Entitic vol] 9.4 fL Critically low 9.5-13.5 [facility] Comment on above: Performed By: #### C BC ####[facility] Bdenhthsrs[address] [place] [address]Dr. Shahbaz Rogel PLT 216 103/ul Normal 150-450 [facility] Comment on above: Performed By: #### C BC ####[facility] Xhjbksibiz3118 [place] [phone]. Shahbaz Rogel RBC 5.36 106/ul Normal 4.20-5.40 [facility] Comment on above: Performed By: #### C BC ####[facility] Sdwqmuoluq9556 [place] [address]Dr. Shahbaz Rogel WBC 4.2 103/ul Normal 4.0-11.0 [facility] Comment on above: Performed By: #### C BC ####[facility] Upkbqafqqz6152 [place] [phone]. Shahbaz Rogel FREE THYROXINE INDEX T7on FTI 2.92 Normal 1.30-4.50 [facility] Comment on above: Performed By: #### C MP, LIPID, T7, TSH ####[facility] Gyyydwxkma[address] [place] [address]Dr. Shahbaz Juan F T3U 37.0 % Normal 30.0-39.0 [facility] Comment on above: Performed By: #### C MP, LIPID, T7, TSH ####[facility] Cggwjvhugd5060 [place] [phone]. Shahbaz Juan F T4 [Mass/Vol] 7.90 ug/dL Normal 4.80-13.90 [facility] Comment on above: Performed By: #### C MP, LIPID, T7, TSH ####[facility] Hrnwqdhydr4982 [place] [phone]. Shahbaz Rogel GLYCOHEMOGLOBIN A1Con 2022 ADA RECOMMENDATION SEE BELOW Normal [facility] Comment on above: Result Comment: ADA RECOMMENDED LIMIT 4.0 - 6.0 ADA THERAPEUTIC TARGET < 7.0 ACTION SUGGESTED > 7.0 Performed By: #### A 1C ####[facility] [address]coztsxdzs87[address] [place], [place] [address]Dr. Shahbaz Rogel Glucose [Mass/Vol] 120 mg/dL Normal [facility] Comment on above: Performed By: #### A 1C ####[facility] Ogurleonfn8150[address] [place], [place] [address]Dr. Shahbaz Rogel HbA1c (Bld) [Mass fraction] 5.8 % Normal 4.5-6.2 [facility] Comment on above: Performed By: #### A 1C ####[facility] Zswwuocghb2[address] [place], [place] [address]Dr. Shahbaz Rogel IRONon 11-01-2022 Iron [Mass/Vol] 54.0 ug/dL Normal 50.0-170.0 [facility] Comment on above: Performed By: #### I GRIS ####[facility] Yknrmtgccf504[address] [place], [place] [address]Dr. Shahbaz Rogel LIPID PROFILEon 11-01-2022 CHOL-HDL RATIO NORM SEE BELOW Normal [facility] Comment on above: Result Comment: 3.3 - 4.4 LOW RISK 4.4 - 7.1 AVERAGE RISK 7.1 - 11.0 MODERATE RISK >11.0 HIGH RISK Performed By: #### C MP, LIPID, T7, TSH ####[facility] Dxmjwcjptx[address] [place], [place] [address]Dr. Shahbaz Rogel Cholesterol [Mass/Vol] 203 mg/dL Critically high <=200 [facility] Comment on above: Performed By: #### C MP, LIPID, T7, TSH ####[facility] Qzanoxjdig767[address] [place], [place] [address]Dr. Shahbaz Rogel Cholesterol in HDL [Mass/Vol] 42 mg/dL Normal 40-60 [facility] Comment on above: Performed By: #### C MP, LIPID, T7, TSH ####[facility] Edccgllgkm15[address] [place], [place] [address]Dr. Shahbaz Rogel Cholesterol in LDL [Mass/Vol] 121.4 mg/dL Normal [facility] Comment on above: Performed By: #### C MP, LIPID, T7, TSH ####[facility] Fihmrxzvhk2568 [place] [phone]. Shahbaz Rogel Cholesterol.total/Chol esterol in HDL [Mass ratio] 4.8 {ratio} Normal [facility] Comment on above: Performed By: #### C MP, LIPID, T7, TSH ####[facility] [address] [place] [id number]. Shahbaz Rogel HDL NORMAL > or = 60 mg/dl - LO W CARDIOVASCULAR RISK <40 mg/dl - HIGH CARDIOVASCULAR RISK Normal [facility] Comment on above: Performed By: #### C MP, LIPID, T7, TSH ####[facility] [address] [place] [id number]. Shahbaz Rogel LDL CALC NORMAL SEE BELOW Normal [facility] Comment on above: Result Comment: <100 mg/dl OPTIMAL 100 - 129 mg/dl NEAR OR ABOVE OPTIMAL 130 - 159 mg/dl BORDERLINE HIGH 160 - 189 mg/dl HIGH >190 mg/dl VERY HIGH Performed By: #### C MP, LIPID, T7, TSH ####[facility] [address] [place] [id number]. Shahbaz Rogel Triglyceride [Mass/Vol] 198 mg/dL Critically high <=150 [facility] Comment on above: Performed By: #### C MP, LIPID, T7, TSH ####[facility] [address] [place] [phone]. Shahbaz Rogel VLDL CALC 39.6 mg/dL Normal [facility] Comment on above: Performed By: #### C MP, LIPID, T7, TSH ####[facility] [address] [place] [phone]. Shahbaz Rogel PROF 14(COMP METB)on 023 Albumin [Mass/Vol] 4.1 g/dL Normal 3.4-5.0 [facility] Comment on above: Performed By: #### C MP, LIPID, T7, TSH ####[facility] [address] [place] [address]Dr. Shahbaz Rogel Albumin/Globulin [Mass ratio] 1.0 {ratio} Normal [facility] Comment on above: Performed By: #### C MP, LIPID, T7, TSH ####[facility] [address] [place] [address]Dr. Shahbaz Juan F ALP [Catalytic activity/Vol] 126 U/L Critically high 46-116 [facility] Comment on above: Performed By: #### C MP, LIPID, T7, TSH ####[facility] [address]eb[address] [place] [address]Dr. Shahbaz Rogel ALT [Catalytic activity/Vol] 30 U/L Normal 14-59 [facility] Comment on above: Performed By: #### C MP, LIPID, T7, TSH ####[facility] [address] [place] [address]Dr. Shahbaz Rogel Anion gap [Moles/Vol] 12.3 mmol/L Normal [facility] Comment on above: Performed By: #### C MP, LIPID, T7, TSH ####[facility] [address] [place] [address]Dr. Shahbaz Rogel AST [Catalytic activity/Vol] 25 U/L Normal 15-37 [facility] Comment on above: Performed By: #### C MP, LIPID, T7, TSH ####[facility] [address] [place] [address]Dr. Shahbaz Rogel Bilirubin [Mass/Vol] 0.5 mg/dL Normal 0.2-1.0 [facility] Comment on above: Performed By: #### C MP, LIPID, T7, TSH ####[facility] [address] [place] [address]Dr. Shahbaz Rogel Calcium [Mass/Vol] 9.4 mg/dL Normal 8.5-10.1 [facility] Comment on above: Performed By: #### C MP, LIPID, T7, TSH ####[facility] [address] [place] [address]Dr. Shahbaz Rogel Chloride [Moles/Vol] 104 mmol/L Normal 98-107 [facility] Comment on above: Performed By: #### C MP, LIPID, T7, TSH ####[facility] [address] [place] [address]Dr. Shahbaz Rogel CO2 [Moles/Vol] 29.6 mmol/L Normal 21.0-32.0 [facility] Comment on above: Performed By: #### C MP, LIPID, T7, TSH ####[facility] [address] [place] [address]Dr. Shahbaz Rogel Creatinine [Mass/Vol] 0.91 mg/dL Normal 0.55-1.02 [facility] Comment on above: Performed By: #### C MP, LIPID, T7, TSH ####[facility] [address] [place] [address]Dr. Shahbaz Rogel EGFR-AF BELGIAN >60 Normal >=60 [facility] Comment on above: Performed By: #### C MP, LIPID, T7, TSH ####[facility] [address] [place] [address]Dr. Shahbaz Rogel EGFR-NON AF BELGIAN >60 Normal >=60 [facility] Comment on above: Performed By: #### C MP, LIPID, T7, TSH ####[facility] [address] [place], [place] [address]Dr. Shahbaz Rogel Globulin (S) [Mass/Vol] 4.0 g/dL Normal [facility] Comment on above: Performed By: #### C MP, LIPID, T7, TSH ####[facility] [address] [place] [address]Dr. Shahbaz Rogel Glucose [Mass/Vol] 85 mg/dL Normal 74-106 [facility] Comment on above: Performed By: #### C MP, LIPID, T7, TSH ####[facility] [address] [place] [address]Dr. Shahbaz Rogel Potassium [Moles/Vol] 3.9 mmol/L Normal 3.5-5.1 [facility] Comment on above: Performed By: #### C MP, LIPID, T7, TSH ####[facility] [address] [place] [address]Dr. Shahbaz Rogel Protein [Mass/Vol] 8.1 g/dL Normal 6.4-8.2 [facility] Comment on above: Performed By: #### C MP, LIPID, T7, TSH ####[facility] [address] [place] [phone]. Shahbaz Rogel Sodium [Moles/Vol] 142 mmol/L Normal 136-145 [facility] Comment on above: Performed By: #### C MP, LIPID, T7, TSH ####[facility] [address] [place] [phone]. Shahbaz Rogel Urea nitrogen [Mass/Vol] 9.0 mg/dL Normal 7.0-18.0 [facility] Comment on above: Performed By: #### C MP, LIPID, T7, TSH ####[facility] [address] [place] [address]Dr. Shahbaz Rogel Urea nitrogen/Creatinine [Mass ratio] 9.9 mg/mg Normal [facility] Comment on above: Performed By: #### C MP, LIPID, T7, TSH ####[facility] [address] [place] [address]Dr. Shahbaz Rogel TSHon 11-01-2022 TSH 0.045 uIU/mL Critically low 0.358-3.74 0 [facility] Comment on above: Performed By: #### C MP, LIPID, T7, TSH ####[facility] [address] [place] [address]Dr. Shahbaz Rogel XR HUMERUS LT MIN 2Von 10-01 XR HUMERUS LT MIN 2V Normal [facility] XR LSPINE 2_3 VIEWSon 2021 XR LSPINE 2_3 VIEWS Normal [facility] XR CHEST 1 Von 08-25-2022 XR CHEST 1 V Normal [facility] ACID FAST SMEAR AND CXon Acid Fast Culture Negative Normal [facility] Comment on above: Result Comment: No a ninfa fast bacilli isolated after 6 weeks. Performed By: #### A FB ####[facility] [address] [place] [address]Dr. Shahbaz Rogel Acid Fast Smear Negative Normal [facility] Comment on above: Performed By: #### A FB ####[facility] [address] [place], [place] [address]Ea. Shahbaz Rogel [employer] Specimen Processing Concentration Normal [facility] Comment on above: Performed By: #### A FB ####[facility] [address] [place], [place] [address]Ux. Shahbaz Rogel Bacteria identified Anaer cx Nom (Unsp spec)Ordered By: Rodolfo Harley on 08-13-2022 Anaerobic microbial culture No Anaerobes Isolated 3 Days [facility] Basophils Auto (Bld) [#/Vol] Ordered By: Rodolfo Harley on 08-12-2022 Basophils (Bld) [#/Vol] 0.0 10*3/uL 0.0-0.2 [facility] Basophils/100 WBC Auto (Bld) Ordered By: Rodolfo Harley on 08-12-2022 Basophils/100 WBC (Bld) 0.4 % . [facility] Creatinine and Glomerular fi ltration rate.predicted panel (S/P/Bld)Ordered By: Rodolfo Harley on 08-12-2022 Creatinine [Mass/Vol] 0.74 mg/dL 0.44-1.03 [facility] Eosinophils Auto (Bld) [#/Vo l]Ordered By: Rodolfo Harley on 08-12-2022 Eosinophils (Bld) [#/Vol] 0.0 10*3/uL 0.0-0.45 [facility] Eosinophils/100 WBC Auto (Bl d)Ordered By: Rodolfo Harley on 08-12-2022 Eosinophils/100 WBC (Bld) 0.0 % . [facility] Erythrocyte distribution wid th Auto (RBC) [Ratio]Ordered By: Rodolfo Harley on 08-12-2022 Erythrocyte distribution width (RBC) [Ratio] 14.2 % 11.9-15.3 [facility] Estimated glomerular filtrat ion rate (GFR) non- AmericanOrdered By: Rodolfo Harley on 08-12-2022 GFR/1.73 sq M.predicted among non-blacks MDRD (S/P/Bld) [Vol rate/Area] > 60 mL/Min [facility] Hematocrit Auto (Bld) [Volum e fraction]Ordered By: Rodolfo Harley on 08-12-2022 Hematocrit (Bld) [Volume fraction] 38.0 % 34.0-46.4 [facility] Hemoglobin [Mass/volume] in BloodOrdered By: Rodolfo Harley on 08-12-2022 Hemoglobin (Bld) [Mass/Vol] 12.5 g/dL 11.8-15.4 [facility] Laboratory - Hematology and Cell countsOrdered By: Rodolfo Harley on 08-12-2022 Nucleated RBC/100 WBC (Bld) [Ratio] 0.1 % 0-0.5 [facility] Leukocytes [#/volume] in Blo od by Automated countOrdered By: Rodolfo Harley on 08-12-2022 WBC (Bld) [#/Vol] 5.8 10*3/uL 4.5-11.0 [facility] Lymphocytes Auto (Bld) [#/Vo l]Ordered By: Rodolfo Harley on 08-12-2022 Lymphocytes (Bld) [#/Vol] 0.7 10*3/uL 1.00-4.8 [facility] Lymphocytes/100 WBC Auto (Bl d)Ordered By: Rodolfo Harley on 08-12-2022 Lymphocytes/100 WBC (Bld) 11.4 % . [facility] MCH Auto (RBC) [Entitic mass ]Ordered By: Rodolfo Harley on 08-12-2022 MCH (RBC) [Entitic mass] 28.1 pg 24.7-34.3 [facility] MCHC Auto (RBC) [Mass/Vol]Or dered By: Rodolfo Harley on 08-12-2022 MCHC (RBC) [Mass/Vol] 32.9 g/dL 32.0-35.0 [facility] MCV Auto (RBC) [Entitic vol] Ordered By: Rodolfo Harley on 08-12-2022 MCV (RBC) [Entitic vol] 85.4 fL 80-100 [facility] Monocytes Auto (Bld) [#/Vol] Ordered By: Rodolfo Harley on 08-12-2022 Monocytes (Bld) [#/Vol] 0.3 10*3/uL 0.0-0.8 [facility] Monocytes/100 WBC Auto (Bld) Ordered By: Rodolfo Harley on 08-12-2022 Monocytes/100 WBC (Bld) 4.8 % . [facility] Neutrophils Auto (Bld) [#/Vo l]Ordered By: Rodolfo Harley on 08-12-2022 Neutrophils (Bld) [#/Vol] 4.8 10*3/uL 1.8-7.7 [facility] Neutrophils/100 WBC Auto (Bl d)Ordered By: Rodolfo Harley on 08-12-2022 Neutrophils/100 WBC (Bld) 83.4 % . [facility] No Panel InformationOrdered By: Rodolfo Harley on 08-12-2022 Estimated GFR () > 60 mL/Min [facility] Comment on above: GFR estimated refere nce range: According to KDOQI guidelines, <60 ml/min/1.73m2 is sufficient to diagnose a patient with chronic kidney disease. Pharmacy Creatinine Clearance (Chem 59.45 [facility] Platelet mean volume Auto (B ld) [Entitic vol]Ordered By: Rodolfo Harley on 08-12-2022 Platelet mean volume (Bld) [Entitic vol] 7.9 fL 6.3-10.7 [facility] Platelets Auto (Bld) [#/Vol] Ordered By: Rodolfo Harley on 08-12-2022 Platelets (Bld) [#/Vol] 196 10*3/uL 150-450 [facility] RBC Auto (Bld) [#/Vol]Ordere d By: Rodolfo Harley on 08-12-2022 RBC (Bld) [#/Vol] 4.45 10*6/uL 3.60-5.00 [facility] Serum or plasma anion gap de terminationOrdered By: Rodolfo Harley on 08-12-2022 Anion gap [Moles/Vol] 7.5 mmol/L 6.0-15.0 [facility] Serum or plasma calcium dagoberto urement (mass/volume)Ordered By: Rodolfo Harley on 08-12-2022 Calcium [Mass/Vol] 8.7 mg/dL 8.2-10.2 [facility] Serum or plasma chloride anahy surement (moles/volume)Ordered By: Rodolfo Harley on 08-12-2022 Chloride [Moles/Vol] 108 mmol/L 95-114 [facility] Serum or plasma glucose dagoberto urement (mass/volume)Ordered By: Rodolfo Harley on 08-12-2022 Glucose [Mass/Vol] 133 mg/dL 70-100 [facility] Comment on above: ADA recommended refe rence rangeRandom Glucose Reference Range is dependent on time and content of last meal. Glucose of more than 200 mg/dL in a nonstressed, ambulatory subject supports the diagnosis of Diabetes Mellitus. Serum or plasma potassium me asurement (moles/volume)Ordered By: Rodolfo Harley on 08-12-2022 Potassium [Moles/Vol] 3.7 mmol/L 3.5-5.1 [facility] Serum or plasma sodium measu rement (moles/volume)Ordered By: Rodolfo Harley on 08-12-2022 Sodium [Moles/Vol] 139 mmol/L 136-146 [facility] Serum or plasma total carbon dioxide measurement (moles/volume)Ordered By: Rodolfo Harley on 08-12-2022 CO2 [Moles/Vol] 27.2 mmol/L 22.0-30.0 [facility] Serum or plasma urea nitroge n measurement (mass/volume)Ordered By: Rodolfo Harley on 08-12-2022 Urea nitrogen [Mass/Vol] 14 mg/dL 9-23 [facility] ABO and Rh group post transf usion reaction Nom (Bld)Ordered By: Rodolfo Harley on 08-10-2022 Microscopic observation Gram stain Nom (Unsp spec) [facility] AFB cultureOrdered By: Sissy Harley on 08-10-2022 Mycobacterium sp identified Org specific cx Nom (Unsp spec) [facility] [employer] smearOrdered By: Rodolfo Harley on 08-10-2022 Microscopic observation Smear Nom (Unsp spec) [facility] Aerobic cultureOrdered By: Margie Harley on 08-10-2022 Bacteria identified Aer cx Nom (Unsp spec) No Growth 2 Days [facility] Anaerobic cultureOrdered By: Rodolfo Harley on 08-10-2022 Bacteria identified Anaer cx Nom (Unsp spec) No Anaerobes Isolated 3 Days [facility] Arterial blood standard base excess determination by calculationOrdered By: Rodolfo Harley on 08-10-2022 Base excess standard Calc (BldA) [Moles/Vol] 5 mmol/L -2-3 [facility] Blood carbon dioxide, total measurement by calculation (moles/volume)Ordered By: Rodolfo Harley on 08-10-2022 CO2 Calc (Bld) [Moles/Vol] 30 mmol/L 23-29 [facility] [address] biopsyOrdered By: Rodolfo Harley on 08-10-2022 Hematocrit (Bld) [Volume fraction] 40.0 % 38.0-51.0 [facility] Fungal cultureOrdered By: Rolanda Harley on 08-10-2022 Fungus identified Cx Nom (Unsp spec) [facility] Glucose Glucometer (BldC) [M ass/Vol]Ordered By: Rodolfo Harley on 08-10-2022 Glucose [Mass/Vol] 126 mg/dL 70-105 [facility] Gram stain for investigation of transfusion reactionOrdered By: Rodolfo Harley on 08-10-2022 Microscopic observation Gram stain Nom (Unsp spec) [facility] Hemoglobin Calc (Bld) [Mass/ Vol]Ordered By: Rodolfo Harley on 08-10-2022 Hemoglobin (Bld) [Mass/Vol] 13.6 g/dL 12.0-17.0 [facility] Monocyte %Ordered By: Jean Harley on 08-10-2022 Monocyte % 39.9 mm[Hg] 35-51 [facility] Monocyte % 45 mm[Hg] 80-105 [facility] No Panel InformationOrdered By: Rodolfo Harley on 08-10-2022 Chlamydia psittaci Antibodies <1:10 Neg:<1:10 [facility] Comment on above: This test was develo ped and its performance characteristicsdetermined by [employer] ([employer]). It has not been cleared or approvedby the Food and Drug Administration. The FDA hasdetermined that such clearance or approval is notnecessary.Performed at: [address], [place], [place] [id number] Director: Shelly Vargas MD, Phone: [phone] Potassium (Bld) [Moles/Vol]O rdered By: Rodolfo Harley on 08-10-2022 Potassium [Moles/Vol] 3.8 mmol/L 3.5-4.9 [facility] Sodium (Bld) [Moles/Vol]Orde red By: Rodolfo Harley on 08-10-2022 Sodium [Moles/Vol] 141 mmol/L 138-146 [facility] Whole blood bicarbonate dagoberto urementOrdered By: Rodolfo Harley on 08-10-2022 HCO3 (Bld) [Moles/Vol] 29.1 mmol/L 22.0-28.0 [facility] Whole blood ionized calcium measurement (moles/volume)Ordered By: Rodolfo Harley on 08-10-2022 Calcium.ionized (Bld) [Moles/Vol] 1280 mmol/L 1.12-1.32 [facility] Whole blood oxygen saturatio n measurementOrdered By: Rodolfo Harley on 08-10-2022 Oxygen saturation in Blood 84 % 95-98 [facility] Comment on above: Reference ranges ref lect baseline specimens only Whole blood pHOrdered By: Rolanda Harley on 08-10-2022 pH (Bld) 7.470 Units 7.31-7.45 [facility] Urine culture routineOrdered By: Rodolfo Harley on 08-07-2022 Bacteria identified Cx Nom (U) 2 Days [facility] Activated partial thrombopla stin time (aPTT) in platelet poor plasma by coagulation aOrdered By: Rodolfo Harley on 08-05-2022 aPTT Coag (PPP) [Time] 35.9 s 25.1-36.5 [facility] Basophils Auto (Bld) [#/Vol] Ordered By: Rodolfo Harley on 08-05-2022 Basophils (Bld) [#/Vol] 0.0 10*3/uL 0.0-0.2 [facility] Basophils/100 WBC Auto (Bld) Ordered By: Rodolfo Harley on 08-05-2022 Basophils/100 WBC (Bld) 0.5 % . [facility] Body fluid albumin measureme nt (mass/volume)Ordered By: Rodolfo Harley on 08-05-2022 Albumin (Body fld) [Mass/Vol] 3.8 g/dL 3.2-5.5 [facility] COVID-19 Positive/NegativeOr dered By: Rodolfo Harley on 08-05-2022 SARS-CoV-2 (COVID-19) N gene PAVAN+probe Ql (Resp) Negative Negative [facility] Comment on above: Testing for SARS-CoV -2 by RT-PCRThis test was developed and its performance characteristics determined by [employer] ([employer] and validated at the [facility]. This test has not been FDA [...] on 08-05-2022 Creatinine [Mass/Vol] 0.97 mg/dL 0.44-1.03 [facility] Eosinophils Auto (Bld) [#/Vo l]Ordered By: Rodolfo Harley on 08-05-2022 Eosinophils (Bld) [#/Vol] 0.2 10*3/uL 0.0-0.45 [facility] Eosinophils/100 WBC Auto (Bl d)Ordered By: Rodolfo Harley on 08-05-2022 Eosinophils/100 WBC (Bld) 4.9 % . [facility] Erythrocyte distribution wid th Auto (RBC) [Ratio]Ordered By: Rodolfo Harley on 08-05-2022 Erythrocyte distribution width (RBC) [Ratio] 14.5 % 11.9-15.3 [facility] Estimated glomerular filtrat ion rate (GFR) non- AmericanOrdered By: Rodolfo Harley on 08-05-2022 GFR/1.73 sq M.predicted among non-blacks MDRD (S/P/Bld) [Vol rate/Area] 59 mL/Min [facility] FUNGAL CULTUREon 08-05-2022 Fungus (Mycology) Culture Final report Abnormal [facility] Comment on above: Performed By: #### C XFUN ####[facility] [address] [place] [address]DrChen Rogel Fungus Stain Final report Normal [facility] Comment on above: Performed By: #### C XFUN ####[facility] [address] [place], [place] [address]Dr. Shahbaz Rogel Result 1 Comment Abnormal [facility] Comment on above: Result Comment: MILADYS/ Calcofluor preparation: no fungus observed. Performed By: #### C XFUN ####[facility] [address] [place] [id number]. Shahbaz Rogel Result Comment: Aspe rgillus versicolor Result 2 Penicillium species Abnormal [facility] Comment on above: Performed By: #### C XFUN ####[facility] [address] [place], [place] [address]DrChen Rogel Globulin Calc (S) [Mass/Vol] Ordered By: Rodolfo Harley on 08-05-2022 Globulin (S) [Mass/Vol] 2.9 g/dL [facility] Hematocrit Auto (Bld) [Volum e fraction]Ordered By: Rodolfo Harley on 08-05-2022 Hematocrit (Bld) [Volume fraction] 43.3 % 34.0-46.4 [facility] Hemoglobin [Mass/volume] in BloodOrdered By: Rodolfo Harley on 08-05-2022 Hemoglobin (Bld) [Mass/Vol] 14.3 g/dL 11.8-15.4 [facility] Laboratory - CoagulationOrde red By: Rodolfo Harley on 08-05-2022 PT Coag (PPP) [Time] 12.4 s 9.0-12.9 [facility] Laboratory - Hematology and Cell countsOrdered By: Rodolfo Harley on 08-05-2022 Nucleated RBC/100 WBC (Bld) [Ratio] 0.0 % 0-0.5 [facility] Leukocytes [#/volume] in Blo od by Automated countOrdered By: Rodolfo Harley on 08-05-2022 WBC (Bld) [#/Vol] 3.4 10*3/uL 4.5-11.0 [facility] Lymphocytes Auto (Bld) [#/Vo l]Ordered By: Rodolfo Harley on 08-05-2022 Lymphocytes (Bld) [#/Vol] 0.9 10*3/uL 1.00-4.8 [facility] Lymphocytes/100 WBC Auto (Bl d)Ordered By: Rodolfo Harley on 08-05-2022 Lymphocytes/100 WBC (Bld) 27.2 % . [facility] MCH Auto (RBC) [Entitic mass ]Ordered By: Rodolfo Harley on 08-05-2022 MCH (RBC) [Entitic mass] 28.4 pg 24.7-34.3 [facility] MCHC Auto (RBC) [Mass/Vol]Or dered By: Rodolfo Harley on 08-05-2022 MCHC (RBC) [Mass/Vol] 33.1 g/dL 32.0-35.0 [facility] MCV Auto (RBC) [Entitic vol] Ordered By: Rodolfo Harley on 08-05-2022 MCV (RBC) [Entitic vol] 85.9 fL 80-100 [facility] Monocytes Auto (Bld) [#/Vol] Ordered By: Rodolfo Harley on 08-05-2022 Monocytes (Bld) [#/Vol] 0.3 10*3/uL 0.0-0.8 [facility] Monocytes/100 WBC Auto (Bld) Ordered By: Rodolfo Harley on 08-05-2022 Monocytes/100 WBC (Bld) 7.5 % . [facility] Neutrophils Auto (Bld) [#/Vo l]Ordered By: Rodolfo Harley on 08-05-2022 Neutrophils (Bld) [#/Vol] 2.0 10*3/uL 1.8-7.7 [facility] Neutrophils/100 WBC Auto (Bl d)Ordered By: Rodolfo Harley on 08-05-2022 Neutrophils/100 WBC (Bld) 59.9 % . [facility] No Panel InformationOrdered By: Rodolfo Harley on 08-05-2022 Estimated GFR () > 60 mL/Min [facility] Comment on above: GFR estimated refere nce range: According to KDOQI guidelines, <60 ml/min/1.73m2 is sufficient to diagnose a patient with chronic kidney disease. Pharmacy Creatinine Clearance (Chem N/A [facility] Platelet mean volume Auto (B ld) [Entitic vol]Ordered By: Rodolfo Harley on 08-05-2022 Platelet mean volume (Bld) [Entitic vol] 8.1 fL 6.3-10.7 [facility] Platelet poor plasma interna tional normalized ratio (INR) by coagulation assay (relatOrdered By: Rodolfo Harley on 08-05-2022 INR Coag (PPP) [Relative time] 1.1 {INR} [facility] Comment on above: INR Therapeutic Rang [...] 08-05-2022 Platelets (Bld) [#/Vol] 243 10*3/uL 150-450 [facility] Protein [Mass/volume] in Ser um or PlasmaOrdered By: Rodolfo Harley on 08-05-2022 Protein [Mass/Vol] 6.7 g/dL 6.1-7.9 [facility] RBC Auto (Bld) [#/Vol]Ordere d By: Rodolfo Harley on 08-05-2022 RBC (Bld) [#/Vol] 5.04 10*6/uL 3.60-5.00 [facility] Serum or plasma alanine snyder otransferase measurement without P-5'-P (enzymatic activiOrdered By: Rodolfo Harley on 08-05-2022 ALT No additional P-5'-P [Catalytic activity/Vol] 14 U/L 10-60 [facility] Serum or plasma albumin/glob ulin mass ratioOrdered By: Rodolfo Harley on 08-05-2022 Albumin/Globulin [Mass ratio] 1.3 {ratio} [facility] Serum or plasma alkaline sruthi sphatase measurement (enzymatic activity/volume)Ordered By: Rodolfo Harley on 08-05-2022 ALP [Catalytic activity/Vol] 91 U/L 32-92 [facility] Serum or plasma anion gap de terminationOrdered By: Rodolfo Harley on 08-05-2022 Anion gap [Moles/Vol] 14.3 mmol/L 6.0-15.0 [facility] Serum or plasma aspartate am inotransferase measurement (enzymatic activity/volume)Ordered By: Rodolfo Harley on 08-05-2022 AST [Catalytic activity/Vol] 21 U/L 10-42 [facility] Serum or plasma calcium dagoberto urement (mass/volume)Ordered By: Rodolfo Harley on 08-05-2022 Calcium [Mass/Vol] 9.5 mg/dL 8.2-10.2 [facility] Serum or plasma chloride anahy surement (moles/volume)Ordered By: Rodolfo Harley on 08-05-2022 Chloride [Moles/Vol] 102 mmol/L 95-114 [facility] Serum or plasma glucose dagoberto urement (mass/volume)Ordered By: Rodolfo Harley on 08-05-2022 Glucose [Mass/Vol] 76 mg/dL 70-100 [facility] Comment on above: ADA recommended refe rence rangeRandom Glucose Reference Range is dependent on time and content of last meal. Glucose of more than 200 mg/dL in a nonstressed, ambulatory subject supports the diagnosis of Diabetes Mellitus. Serum or plasma potassium me asurement (moles/volume)Ordered By: Rodolfo Harley on 08-05-2022 Potassium [Moles/Vol] 3.8 mmol/L 3.5-5.1 [facility] Serum or plasma sodium measu rement (moles/volume)Ordered By: Rodolfo Harley on 08-05-2022 Sodium [Moles/Vol] 138 mmol/L 136-146 [facility] Serum or plasma total biliru bin measurement (mass/volume)Ordered By: Rodolfo Harley on 08-05-2022 Bilirubin [Mass/Vol] 0.7 mg/dL 0.3-1.2 [facility] Serum or plasma total carbon dioxide measurement (moles/volume)Ordered By: Rodolfo Harley on 08-05-2022 CO2 [Moles/Vol] 25.5 mmol/L 22.0-30.0 [facility] Serum or plasma urea nitroge n measurement (mass/volume)Ordered By: Rodolfo Harley on 08-05-2022 Urea nitrogen [Mass/Vol] 12 mg/dL 06-24 [facility] Urine culture routineOrdered By: Rodolfo Harley on 08-05-2022 Bacteria identified Cx Nom (U) 2 Days [facility] XR ANKLE LT MIN 3 Von 2021 XR ANKLE LT MIN 3 V Normal [facility] BNPon 07-06-2022 Natriuretic peptide B (Bld) [Mass/Vol] 843.0 pg/mL Normal <=900.0 [facility] Comment on above: Performed By: #### B LABOR RELATIONS OR PERSONNEL NEGOTIATOR, CRP, CMP ####[facility] Fmtr[address]ctt[address] [place] [address]Dr. Shahbaz Rogel CBC W MANUAL DIFFon 07-06-20 22 ATYPICAL LYMPH # Normal [facility] Comment on above: Performed By: #### C CAIN ####[facility] Xorpajunyt[address] [place] [phone]. Shahbaz Rogel ATYPICAL LYMPH % Normal [facility] Comment on above: Performed By: #### C CAIN ####[facility] Ljqgxqmyal13[address] [place] [phone]. Shahbaz Rogel BAND # 0.0 103/ul Normal 0.0-0.3 [facility] Comment on above: Performed By: #### C CAIN ####[facility] Ndgxyppsen[address] [place] [phone]. Shahbaz Rogel BAND % 0 % Normal 0-5 [facility] Comment on above: Performed By: #### C BCBRICE ####[facility] Emnhtqclwu45[address] [place] [phone]. Shahbaz Rogel BASOM # 0.00 103/ul Normal 0.00-0.10 [facility] Comment on above: Performed By: #### C BCBRICE ####[facility] Xijspteuke[address] [place] [address]Dr. Yijarrod Rogel BASOM % 0.0 % Critically low 0.2-2.0 [facility] Comment on above: Performed By: #### C CAIN ####[facility] Dmzzebxkgl[address] [place], [place] [address]Dr. Yijarrod Rogel BLAST # Normal [facility] Comment on above: Performed By: #### C CAIN ####[facility] Rtrdpssmpp[address] [place], [place] [address]Dr. Yilan Rogel BLAST % Normal [facility] Comment on above: Performed By: #### C CAIN ####[facility] Urwkhmvxkm[address] [place], [place] [address]Dr. Shahbaz Rogel CORRECTED WBC Normal 4.0-11.0 [facility] Comment on above: Performed By: #### C CAIN ####[facility] Ayrbybafur[address] [place] [address]Dr. Yijarrod Rogel EOS # 0.00 103/ul Normal 0.00-0.70 [facility] Comment on above: Performed By: #### C BCBRICE ####[facility] Gevmxreaag[address] [place] [address]Dr. Shahbaz Rogel EOS% 0.0 % Critically low 0.9-7.0 [facility] Comment on above: Performed By: #### C BCBRICE ####[facility] Kzyhetbamv[address] [place], [place] [address]Dr. Shahbaz Rogel HCT 40.3 % Normal 36.0-48.0 [facility] Comment on above: Performed By: #### Cheri BARLOW ####[facility] Hmxvpmlymv[address] [place] [phone]. Shahbaz Rogel HGB 12.7 g/dl Normal 12.0-16.0 [facility] Comment on above: Performed By: #### Cheri BARLOW ####[facility] Uyqngpngns5[address] [place] [phone]. Shahbaz Rogel LYMPHM # 0.41 103/ul Critically low 1.20-3.80 [facility] Comment on above: Performed By: #### Cheri BARLOW ####[facility] Sltbrlfknp[address] [place] [phone]. Shahbaz Rogel LYMPHM% 7.0 % Critically low 20.5-60.0 [facility] Comment on above: Performed By: #### Cheri BARLOW ####[facility] Lhoxcwhuxn13[address] [place] [phone]. Shahbaz Rogel MCH 28.0 pg Normal 26.7-34.0 [facility] Comment on above: Performed By: #### Cheri BARLOW ####[facility] Jwlaimagzh[address] [place] [phone]. Shahbaz Rogel MCHC 31.5 g/dl Normal 29.9-35.2 [facility] Comment on above: Performed By: #### Cheri BARLOW ####[facility] Fwulhjscts4[address] [place] [phone]. Shahbaz Rogel MCV 89.0 fL Normal 81.0-99.0 [facility] Comment on above: Performed By: #### Cheri BARLOW ####[facility] Cseclwnadv77[address] [place] [phone]. Shahbaz Rogel METAMYELOCYTE # Normal [facility] Comment on above: Performed By: #### Cheri BARLOW ####[facility] Dyvkivjirr[address] [place] [phone]. Shahbaz Rogel METAMYELOCYTE % Normal [facility] Comment on above: Performed By: #### Cheri BARLOW ####[facility] Rmxktsulti66[address] [place] [phone]. Shahbaz Rogel MONOM# 0.00 103/ul Critically low 0.30-0.80 [facility] Comment on above: Performed By: #### C CAIN ####[facility] Oezecrciig[address] [place] [address]Dr. Shahbaz Rogel MONOM% 0.0 % Critically low 1.7-12.0 [facility] Comment on above: Performed By: #### C CAIN ####[facility] Jygfzfmvsc045[address] [place] [address]Dr. Shahbaz Rogel MPV 9.8 fL Normal 9.5-13.5 [facility] Comment on above: Performed By: #### C CAIN ####[facility] Mvjdcewsox[address] [place], [place] [address]Dr. Shahbaz Rogel MYELOCYTE # Normal [facility] Comment on above: Performed By: #### C CAIN ####[facility] Byvsjguclm[address] [place], [place] [address]Dr. Shahbaz Rogel MYELOCYTE % Normal [facility] Comment on above: Performed By: #### C CAIN ####[facility] Cqpvjlukvj[address] [place], [place] [address]Dr. Shahbaz Rogel NRBC Normal [facility] Comment on above: Performed By: #### C CAIN ####[facility] Qlkpkorstq7[address] [place], [place] [address]Dr. Shahbaz Rogel PLT 187 103/ul Normal 150-450 [facility] Comment on above: Performed By: #### C CAIN ####[facility] Wohuogchbj[address] [place] [phone]. Shahbaz Rogel RBC 4.53 106/ul Normal 4.20-5.40 [facility] Comment on above: Performed By: #### C CAIN ####[facility] Lgmsroeomo39[address] [place], [place] [address]Dr. Shahbaz Rogel RDW 13.3 % Normal 11.0-15.0 [facility] Comment on above: Performed By: #### C CAIN ####[facility] Xhjbqbfdhl7[address] [place], [place] [address]Dr. Shahbaz Rogel SEG # 5.49 103/ul Normal 1.40-6.50 [facility] Comment on above: Performed By: #### C CAIN ####[facility] Cyddmbxsqv8[address] [place] [address]Dr. Shahbaz Rogel SEG % 93.0 % Critically high 43.0-75.0 [facility] Comment on above: Performed By: #### C CAIN ####[facility] Kcgldcfxpp09[address] [place] [address]Dr. Shahbaz Rogel WBC 5.9 103/ul Normal 4.0-11.0 [facility] Comment on above: Performed By: #### C CAIN ####[facility] Ulzqsbolzh[address] [place] [address]Dr. Shahbaz Rogel CRPon 07-06-2022 CRP [Mass/Vol] mg/L Normal <=1.0 [facility] Comment on above: Performed By: #### B LABOR RELATIONS OR PERSONNEL NEGOTIATOR, CRP, CMP ####[facility] Zafyhhpnrq[address] [place], [place] [address]Dr. Lilajarrod Rogel PROF 14(COMP METB)on 022 Albumin [Mass/Vol] 3.4 g/dL Normal 3.4-5.0 [facility] Comment on above: Performed By: #### B LABOR RELATIONS OR PERSONNEL NEGOTIATOR, CRP, CMP ####[facility] Bjuiecdupl[address] [place] [address]Dr. Lilajarrod Rogel Albumin/Globulin [Mass ratio] 1.0 {ratio} Normal [facility] Comment on above: Performed By: #### B LABOR RELATIONS OR PERSONNEL NEGOTIATOR, CRP, CMP ####[facility] Djvwyxnyrk[address] [place] [address]Dr. Lilajarrod Rogel ALP [Catalytic activity/Vol] 92 U/L Normal 46-116 [facility] Comment on above: Performed By: #### B LABOR RELATIONS OR PERSONNEL NEGOTIATOR, CRP, CMP ####[facility] Gnhfntrpcy5[address] [place] [address]Dr. Shahbaz Rogel ALT [Catalytic activity/Vol] 21 U/L Normal 14-59 [facility] Comment on above: Performed By: #### B LABOR RELATIONS OR PERSONNEL NEGOTIATOR, CRP, CMP ####[facility] Hegeb[address]rzm[address] [place] [phone]. Shahbaz Rogel Anion gap [Moles/Vol] 13.4 mmol/L Normal [facility] Comment on above: Performed By: #### B LABOR RELATIONS OR PERSONNEL NEGOTIATOR, CRP, CMP ####[facility] Ujwpxbsafd9764 [place] [address]Dr. Shahbaz Rogel AST [Catalytic activity/Vol] 16 U/L Normal 15-37 [facility] Comment on above: Performed By: #### B LABOR RELATIONS OR PERSONNEL NEGOTIATOR, CRP, CMP ####[facility] Whkaxlrxgc[address] [place] [address]Dr. Shahbaz Rogel Bilirubin [Mass/Vol] 0.2 mg/dL Normal 0.2-1.0 [facility] Comment on above: Performed By: #### B LABOR RELATIONS OR PERSONNEL NEGOTIATOR, CRP, CMP ####[facility] Xucfjukaje[address] [place], [place] [address]Dr. Shahbaz Rogel Calcium [Mass/Vol] 9.3 mg/dL Normal 8.5-10.1 [facility] Comment on above: Performed By: #### B LABOR RELATIONS OR PERSONNEL NEGOTIATOR, CRP, CMP ####[facility] Onawnettzq7[address] [place], [place] [address]Dr. Shahbaz Rogel Chloride [Moles/Vol] 105 mmol/L Normal 98-107 [facility] Comment on above: Performed By: #### B LABOR RELATIONS OR PERSONNEL NEGOTIATOR, CRP, CMP ####[facility] Dyvoycdbrd68[address] [place], [place] [address]Dr. Shahbaz Rogel CO2 [Moles/Vol] 23.2 mmol/L Normal 21.0-32.0 [facility] Comment on above: Performed By: #### B LABOR RELATIONS OR PERSONNEL NEGOTIATOR, CRP, CMP ####[facility] Zwyzrzawqv87[address] [place] [address]Dr. Shahbaz Rogel Creatinine [Mass/Vol] 1.23 mg/dL Critically high 0.55-1.02 [facility] Comment on above: Performed By: #### B LABOR RELATIONS OR PERSONNEL NEGOTIATOR, CRP, CMP ####[facility] Zuzzstchdr[address] [place] [address]Dr. Shahbaz Rogel EGFR-AF BELGIAN 55 mL/min/1.73m2 Critically low >=60 [facility] Comment on above: Performed By: #### B LABOR RELATIONS OR PERSONNEL NEGOTIATOR, CRP, CMP ####[facility] Asmuevpkck[address] [place] [address]Dr. Shahbaz Rogel EGFR-NON AF BELGIAN 45 mL/min/1.73m2 Critically low >=60 [facility] Comment on above: Performed By: #### B LABOR RELATIONS OR PERSONNEL NEGOTIATOR, CRP, CMP ####[facility] Gawjpbzxtf[address] [place], [place] [address]Dr. Shahbaz Rogel Globulin (S) [Mass/Vol] 3.3 g/dL Normal [facility] Comment on above: Performed By: #### B LABOR RELATIONS OR PERSONNEL NEGOTIATOR, CRP, CMP ####[facility] Vifrcdobpn20[address] [place], [place] [address]Dr. Shahbaz Rogel Glucose [Mass/Vol] 171 mg/dL Critically high 74-106 T [facility] Comment on above: Performed By: #### B LABOR RELATIONS OR PERSONNEL NEGOTIATOR, CRP, CMP ####[facility] Fefihctvlq07[address] [place], [place] [address]Dr. Shahbaz Rogel Potassium [Moles/Vol] 3.6 mmol/L Normal 3.5-5.1 [facility] Comment on above: Performed By: #### B LABOR RELATIONS OR PERSONNEL NEGOTIATOR, CRP, CMP ####[facility] Xszhayrlgh[address] [place], [place] [address]Dr. Shahbaz Rogel Protein [Mass/Vol] 6.7 g/dL Normal 6.4-8.2 [facility] Comment on above: Performed By: #### B LABOR RELATIONS OR PERSONNEL NEGOTIATOR, CRP, CMP ####[facility] Getbnyvjjt4[address] [place], [place] [address]Dr. Shahbaz Rogel Sodium [Moles/Vol] 138 mmol/L Normal 136-145 [facility] Comment on above: Performed By: #### B LABOR RELATIONS OR PERSONNEL NEGOTIATOR, CRP, CMP ####[facility] Yzhynzljhc92[address] [place], [place] [address]Dr. Shahbaz Rogel Urea nitrogen [Mass/Vol] 21.0 mg/dL Critically high 7.0-18.0 [facility] Comment on above: Performed By: #### B LABOR RELATIONS OR PERSONNEL NEGOTIATOR, CRP, CMP ####[facility] Qjiyqugirp[address] [place], [place] [address]Dr. Shahbaz Rogel Urea nitrogen/Creatinine [Mass ratio] 17.1 mg/mg Normal [facility] Comment on above: Performed By: #### B LABOR RELATIONS OR PERSONNEL NEGOTIATOR, CRP, CMP ####[facility] Xclfmgkkae50[address] [place], [place] [address]Dr. Shahbaz Rogel XR CHEST 2 Von 07-06-2022 XR CHEST 2 V Normal [facility] BNPon 07-05-2022 Natriuretic peptide B (Bld) [Mass/Vol] 83.0 pg/mL Normal <=900.0 [facility] Comment on above: Performed By: #### C RP, CMP, BNP ####[facility] Ewxyjehtib[address] [place], [place] [address]Dr. Shahbaz Rogel CBC AUTO DIFFon 07-05-2022 BASO # 0.0 103/ul Normal 0.0-0.1 [facility] Comment on above: Performed By: #### C BC ####[facility] Xdgjzlerxl[address] [place], [place] [address]Dr. Shahbaz Rogel Basophils/100 WBC (Bld) 0.4 % Normal 0.2-2.0 [facility] Comment on above: Performed By: #### C BC ####[facility] Fklfutqhvf[address] [place], [place] [address]Dr. Shahbaz Rogel EO # 0.1 103/ul Normal 0.0-0.7 [facility] Comment on above: Performed By: #### C BC ####[facility] Akmphynisl34[address] [place], [place] [address]Dr. Shahbaz Rogel Eosinophils/100 WBC (Bld) 2.9 % Normal 0.9-7.0 [facility] Comment on above: Performed By: #### C BC ####[facility] Mcsknmmglv[address] [place], [place] [address]Dr. Shahbaz Rogel Erythrocyte distribution width (RBC) [Ratio] 13.4 % Normal 11.0-15.0 [facility] Comment on above: Performed By: #### C BC ####[facility] Yzdyveacsh50[address] [place], [place] [address]Dr. Shahbaz Rogel Hematocrit (Bld) [Volume fraction] 41.7 % Normal 36.0-48.0 [facility] Comment on above: Performed By: #### C BC ####[facility] Huzcocxqvf[address] [place] [address]Dr. Shahbaz Rogel Hemoglobin (Bld) [Mass/Vol] 12.9 g/dL Normal 12.0-16.0 [facility] Comment on above: Performed By: #### C BC ####[facility] Mqimndqeck[address] [place], [place] [address]Dr. Shahbaz Rogel IG # 0.00 10e3/ul Normal 0.00-0.03 [facility] Comment on above: Performed By: #### C BC ####[facility] Fncuqnjyrs[address] [place], [place] [address]Dr. Shahbaz Rogel IG % 0.0 % Normal 0.0-0.5 [facility] Comment on above: Performed By: #### C BC ####[facility] Jelcaqqegg07[address] [place], [place] [address]Dr. Shahbaz Rogel LYMPH # 1.5 103/ul Normal 1.2-3.8 [facility] Comment on above: Performed By: #### C BC ####[facility] Nzozwqekbn137[address] [place], [place] [address]Dr. Shahbaz Rogel Lymphocytes/100 WBC (Bld) 32.9 % Normal 20.5-60.0 [facility] Comment on above: Performed By: #### C BC ####[facility] Beiphaaiac59[address] [place], [place] [address]Dr. Shahbaz Rogel MANUAL DIFF REQ NO Normal [facility] Comment on above: Performed By: #### C BC ####[facility] Wmfkicjetm[address] [place], [place] [address]Dr. Shahbaz Rogel MCH (RBC) [Entitic mass] 28.0 pg Normal 26.7-34.0 [facility] Comment on above: Performed By: #### C BC ####[facility] Bnorgoalpm[address] [place], [place] [address]Dr. Shahbaz Rogel MCHC (RBC) [Mass/Vol] 30.9 g/dL Normal 29.9-35.2 [facility] Comment on above: Performed By: #### C BC ####[facility] Hvsklvhdaf[address] [place] [address]DrChen Rogel MCV (RBC) [Entitic vol] 90.5 fL Normal 81.0-99.0 [facility] Comment on above: Performed By: #### C BC ####[facility] Ixtgpdwbew[address] [place], [place] [address]DrChen Rogel MONO # 0.4 103/ul Normal 0.3-0.8 [facility] Comment on above: Performed By: #### C BC ####[facility] Dwzimnxfjy[address] [place], [place] [address]DrChen Rogel Monocytes/100 WBC (Bld) 8.0 % Normal 1.7-12.0 [facility] Comment on above: Performed By: #### C BC ####[facility] Hltekhxynp[address] [place], [place] [address]DrChen Rogel NEUT # 2.5 103/ul Normal 1.4-6.5 [facility] Comment on above: Performed By: #### C BC ####[facility] Wvrxfgesnh62[address] [place], [place] [address]DrChen Rogel Neutrophils/100 WBC (Bld) 55.8 % Normal 43.0-75.0 [facility] Comment on above: Performed By: #### C BC ####[facility] Zovxyhevpg[address] [place], [place] [address]DrChen Rogel Platelet mean volume (Bld) [Entitic vol] 9.7 fL Normal 9.5-13.5 [facility] Comment on above: Performed By: #### C BC ####[facility] Eofpgissqd97[address] [place], [place] [address]DrChen Rogel PLT 158 103/ul Normal 150-450 [facility] Comment on above: Performed By: #### C BC ####[facility] Yloiwelmpu[address] [place], [place] [address]Dr. Shahbaz Rogel RBC 4.61 106/ul Normal 4.20-5.40 [facility] Comment on above: Performed By: #### C BC ####[facility] Xybthttdxp[address] [place] [address]Dr. Shahbaz Rogel WBC 4.5 103/ul Normal 4.0-11.0 [facility] Comment on above: Performed By: #### C BC ####[facility] Ilxsefacpt[address] [place] [address]Dr. Shahbaz Rogel CRPon 07-05-2022 CRP [Mass/Vol] mg/L Normal <=1.0 [facility] Comment on above: Performed By: #### C RP, CMP, BNP ####[facility] Vlgtowttmc[address] [place] [address]Dr. Shahbaz Rogel ECHO LIMITED STUDYon 022 ECHO LIMITED STUDY Normal [facility] PROF 14(COMP METB)on 022 Albumin [Mass/Vol] 3.2 g/dL Critically low 3.4-5.0 [facility] Comment on above: Performed By: #### C RP, CMP, BNP ####[facility] Pfswsotzcu[address] [place] [address]Dr. Shahbaz Rogel Albumin/Globulin [Mass ratio] 1.0 {ratio} Normal [facility] Comment on above: Performed By: #### C RP, CMP, BNP ####[facility] Maasgelbel[address] [place] [address]Dr. Shahbaz Rogel ALP [Catalytic activity/Vol] 88 U/L Normal 46-116 [facility] Comment on above: Performed By: #### C RP, CMP, BNP ####[facility] Fknouijwsl[address] [place] [address]Dr. Shahbaz Rogel ALT [Catalytic activity/Vol] 17 U/L Normal 14-59 [facility] Comment on above: Performed By: #### C RP, CMP, BNP ####[facility] Gtcbzqtlwi2[address] [place] [address]Dr. Shahbaz Rogel Anion gap [Moles/Vol] 12.5 mmol/L Normal [facility] Comment on above: Performed By: #### C RP, CMP, BNP ####[facility] Wjinmvgvon74[address] [place] [address]Dr. Shahbaz Rogel AST [Catalytic activity/Vol] 18 U/L Normal 15-37 [facility] Comment on above: Performed By: #### C RP, CMP, BNP ####[facility] Wriahotwyk[address] [place] [address]Dr. Shahbaz Rogel Bilirubin [Mass/Vol] 0.3 mg/dL Normal 0.2-1.0 [facility] Comment on above: Performed By: #### C RP, CMP, BNP ####[facility] Yxollmeymr8[address] [place] [address]Dr. Shahbaz Rogel Calcium [Mass/Vol] 8.9 mg/dL Normal 8.5-10.1 [facility] Comment on above: Performed By: #### C RP, CMP, BNP ####[facility] Mucchprtiv[address] [place], [place] [address]Dr. Shahbaz Rogel Chloride [Moles/Vol] 103 mmol/L Normal 98-107 [facility] Comment on above: Performed By: #### C RP, CMP, BNP ####[facility] Oehedgmkoz[address] [place], [place] [address]Dr. Shahbaz Rogel CO2 [Moles/Vol] 28.1 mmol/L Normal 21.0-32.0 [facility] Comment on above: Performed By: #### C RP, CMP, BNP ####[facility] [address]pzynlkyos[address] [place], [place] [address]Dr. Shahbaz Rogel Creatinine [Mass/Vol] 1.24 mg/dL Critically high 0.55-1.02 [facility] Comment on above: Performed By: #### C RP, CMP, BNP ####[facility] Ugrucinqee[address] [place] [address]Dr. Shahbaz Rogel EGFR-AF BELGIAN 54 mL/min/1.73m2 Critically low >=60 [facility] Comment on above: Performed By: #### C RP, CMP, BNP ####[facility] Zslgskhspx[address] [place], [place] [address]Dr. Shahbaz Rogel EGFR-NON AF BELGIAN 45 mL/min/1.73m2 Critically low >=60 [facility] Comment on above: Performed By: #### C RP, CMP, BNP ####[facility] Ztkfdctcop[address] [place] [address]Dr. Shahbaz Rogel Globulin (S) [Mass/Vol] 3.1 g/dL Normal [facility] Comment on above: Performed By: #### C RP, CMP, BNP ####[facility] Msjojkvpvb37[address] [place] [address]Dr. Shahbaz Rogel Glucose [Mass/Vol] 115 mg/dL Critically high 74-106 T [facility] Comment on above: Performed By: #### C RP, CMP, BNP ####[facility] Cmdmgemkrv5[address] [place] [address]Dr. Shahbaz Rogel Potassium [Moles/Vol] 3.6 mmol/L Normal 3.5-5.1 [facility] Comment on above: Performed By: #### C RP, CMP, BNP ####[facility] Cuxtwnoyrp[address] [place] [address]Dr. Shahbaz Rogel Protein [Mass/Vol] 6.3 g/dL Critically low 6.4-8.2 Th [facility] Comment on above: Performed By: #### C RP, CMP, BNP ####[facility] Drhfzscuks[address] [place] [address]Dr. Shahbaz Rogel Sodium [Moles/Vol] 140 mmol/L Normal 136-145 [facility] Comment on above: Performed By: #### C RP, CMP, BNP ####[facility] Pvqeiuoijb[address] [place] [address]Dr. Shahbaz Rogel Urea nitrogen [Mass/Vol] 18.0 mg/dL Normal 7.0-18.0 [facility] Comment on above: Performed By: #### C RP, CMP, BNP ####[facility] Nocexjafbs[address] [place] [address]Dr. Shahbaz Rogel Urea nitrogen/Creatinine [Mass ratio] 14.5 mg/mg Normal [facility] Comment on above: Performed By: #### C RP, CMP, BNP ####[facility] Wpqzaxpdxt64[address] [place] [id number]. Shahbaz Rogel T3, TOTAL (TRIIODOTHYRONINE) on 07-05-2022 T3, TOTAL 95 ng/dL Normal 71-180 [facility] Comment on above: Performed By: #### T 3TOTAL ####[facility] [address]vym[address]jlhd[address] [place], [place] [address]Dr. Shahbaz Rogel CARDIAC ROSALINA 3-6on 2 CK [Catalytic activity/Vol] 78 U/L Normal 26-192 [facility] Comment on above: Performed By: #### C MREP ####[facility] Jhpwhcdptq[address] [place], [place] [address]Dr. Shahbaz Rogel CK.MB [Mass/Vol] 1.44 ng/mL Normal <=3.60 [facility] Comment on above: Performed By: #### C MREP ####[facility] Kqzcyrnymq[address] [place], [place] [address]Dr. Shahbaz Rogel HSTROP 9.0 pg/mL Normal 4.0-51.3 [facility] Comment on above: Result Comment: CUT- OFF POINTS HAVE BEEN ESTABLISHED BASED ON THE FOURTH UNIVERSAL DEFINITIONS OF MYOCARDIALINFARCTION. THE UPPER REFERENCE LIMIT (URL) OF TROPONIN, DEFINED THE 99TH PERCENTILE OFcTnI DISTRIBUTION IN A REFERENCE POPULATION, HAS BEEN CONFIRMED THE DECISION THRESHOLDFOR [place] DIAGNOSIS. Performed By: #### C MREP ####[facility] [facility] [address]xl[address] [place], [place] [address]Dr. Shahbaz Rogel CK [Catalytic activity/Vol] 88 U/L Normal 26-192 [facility] Comment on above: Performed By: #### C MREP ####[facility] Wfdnrl[address]woz[address] [place] [id number]. Shahbaz Rogel CK.MB [Mass/Vol] 1.38 ng/mL Normal <=3.60 [facility] Comment on above: Performed By: #### C MREP ####[facility] Iwkbmosfpm[address] [place] [address]Dr. Shahbaz Rogel HSTROP 7.0 pg/mL Normal 4.0-51.3 [facility] Comment on above: Result Comment: CUT- OFF POINTS HAVE BEEN ESTABLISHED BASED ON THE FOURTH UNIVERSAL DEFINITIONS OF MYOCARDIALINFARCTION. THE UPPER REFERENCE LIMIT (URL) OF TROPONIN, DEFINED THE 99TH PERCENTILE OFcTnI DISTRIBUTION IN A REFERENCE POPULATION, HAS BEEN CONFIRMED THE DECISION THRESHOLDFOR [place] DIAGNOSIS. Performed By: #### C MREP ####[facility] Fyhw[address]kvqwr[address] [place] [address]Dr. Shahbaz Rogel CARDIAC ROSALINA ADMITon 022 CK [Catalytic activity/Vol] 87 U/L Normal 26-192 [facility] Comment on above: Performed By: #### C JACKSON, CINDY ####[facility] Fozqyurs[address] [place], [place] [address]Dr. Shahbaz Rogel CK.MB [Mass/Vol] 1.80 ng/mL Normal <=3.60 [facility] Comment on above: Performed By: #### C JACKSON, EARLDM ####[facility] Jfqb[address]jla[address] [place], [place] [address]Dr. Shahbaz Rogel HSTROP 7.6 pg/mL Normal 4.0-51.3 [facility] Comment on above: Result Comment: CUT- OFF POINTS HAVE BEEN ESTABLISHED BASED ON THE FOURTH UNIVERSAL DEFINITIONS OF MYOCARDIALINFARCTION. THE UPPER REFERENCE LIMIT (URL) OF TROPONIN, DEFINED THE 99TH PERCENTILE OFcTnI DISTRIBUTION IN A REFERENCE POPULATION, HAS BEEN CONFIRMED THE DECISION THRESHOLDFOR [place] DIAGNOSIS. Performed By: #### C JACKSON, EARLDM ####[facility] Nbfuyoeazx[address] [place], [place] [address]Dr. Shahbaz Rogel LEN 67 ng/mL Normal 9-82 [facility] Comment on above: Performed By: #### C JACKSON, EARLDM ####[facility] H[address]hybbbdrp[address] [place] [address]Dr. Shahbaz Rogel CBC AUTO DIFFon 07-04-2022 BASO # 0.0 103/ul Normal 0.0-0.1 [facility] Comment on above: Performed By: #### C BC ####[facility] Rdkznbzoog[address] [place] [address]Dr. Shahbaz Rogel Basophils/100 WBC (Bld) 0.7 % Normal 0.2-2.0 [facility] Comment on above: Performed By: #### C BC ####[facility] Ltkamwnghs[address] [place], [place] [id number]. Shahbaz Rogel EO # 0.1 103/ul Normal 0.0-0.7 [facility] Comment on above: Performed By: #### C BC ####[facility] Lwccobctbr[address] [place], [place] [address]Dr. Shahbaz Rogel Eosinophils/100 WBC (Bld) 3.4 % Normal 0.9-7.0 [facility] Comment on above: Performed By: #### C BC ####[facility] Gbadsplgfg[address] [place], [place] [address]Dr. Shahbaz Rogel Erythrocyte distribution width (RBC) [Ratio] 13.3 % Normal 11.0-15.0 [facility] Comment on above: Performed By: #### C BC ####[facility] Bejbtnvnoa[address] [place], [place] [address]Dr. Shahbaz Rogel Hematocrit (Bld) [Volume fraction] 42.1 % Normal 36.0-48.0 [facility] Comment on above: Performed By: #### C BC ####[facility] Vuwknucdjo94[address] [place], [place] [address]Dr. Shahbaz Rogel Hemoglobin (Bld) [Mass/Vol] 13.3 g/dL Normal 12.0-16.0 [facility] Comment on above: Performed By: #### C BC ####[facility] Jwpommrnwp[address] [place], [place] [address]Dr. Shahbaz Rogel IG # 0.01 10e3/ul Normal 0.00-0.03 [facility] Comment on above: Performed By: #### C BC ####[facility] Ferugwlijm[address] [place], [place] [address]Dr. Shahbaz Rogel IG % 0.3 % Normal 0.0-0.5 [facility] Comment on above: Performed By: #### C BC ####[facility] Ghjxcsfgtc[address] [place], [place] [address]Dr. Shahbaz Rogel LYMPH # 1.0 103/ul Critically low 1.2-3.8 [facility] Comment on above: Performed By: #### C BC ####[facility] Loxfl[address]kkf[address] [place] [address]Dr. Shahbaz Rogel Lymphocytes/100 WBC (Bld) 35.6 % Normal 20.5-60.0 [facility] Comment on above: Performed By: #### C BC ####[facility] Djmmsbwnig16[address] [place] [address]DrChen Rogel MANUAL DIFF REQ NO Normal [facility] Comment on above: Performed By: #### C BC ####[facility] Krlvlhfzaw24[address] [place] [address]Dr. Shahbaz Rogel MCH (RBC) [Entitic mass] 27.9 pg Normal 26.7-34.0 [facility] Comment on above: Performed By: #### C BC ####[facility] Bfbscskjky[address] [place], [place] [address]Dr. Shahbaz Rogel MCHC (RBC) [Mass/Vol] 31.6 g/dL Normal 29.9-35.2 [facility] Comment on above: Performed By: #### C BC ####[facility] Xfmdvkigzq[address] [place], [place] [address]DrChen Rogel MCV (RBC) [Entitic vol] 88.3 fL Normal 81.0-99.0 [facility] Comment on above: Performed By: #### C BC ####[facility] Luacxvxhbx9765[address] [place], [place] [address]DrChen Rogel MONO # 0.2 103/ul Critically low 0.3-0.8 [facility] Comment on above: Performed By: #### C BC ####[facility] Zkshcaydam[address] [place], [place] [address]DrChen Rogel Monocytes/100 WBC (Bld) 7.9 % Normal 1.7-12.0 [facility] Comment on above: Performed By: #### C BC ####[facility] Blaapnhogf[address] [place], [place] [address]DrChen Rogel NEUT # 1.5 103/ul Normal 1.4-6.5 [facility] Comment on above: Performed By: #### C BC ####[facility] Zknxzlsrwi8[address] [place] [address]DrChen Shahbaz Rogel Neutrophils/100 WBC (Bld) 52.1 % Normal 43.0-75.0 [facility] Comment on above: Performed By: #### C BC ####[facility] Eljgfnuavc3[address] [place] [address]DrChen Shahbaz Rogel Platelet mean volume (Bld) [Entitic vol] 9.5 fL Normal 9.5-13.5 [facility] Comment on above: Performed By: #### C BC ####[facility] Ogkxlzizwz[address] [place], [place] [address]Dr. Shahbaz Rogel PLT 172 103/ul Normal 150-450 [facility] Comment on above: Performed By: #### C BC ####[facility] Tsvjqofphw85[address] [place], [place] [address]Dr. Shahbaz Rogel RBC 4.77 106/ul Normal 4.20-5.40 [facility] Comment on above: Performed By: #### C BC ####[facility] Ikqzhdysww[address]64[address] [place], [place] [address]DrChen Shahbaz Rogel WBC 2.9 103/ul Critically low 4.0-11.0 [facility] Comment on above: Performed By: #### C BC ####[facility] Bjbphoafty12[address] [place], [place] [address]DrChen Shahbaz Juan F CELL COUNT BODY FLUIDon 10-0 BASOS Normal [facility] Comment on above: Performed By: #### B FCC ####[facility] Vfdwdrhrkj33[address] [place], [place] [address]Dr. Shahbaz Rogel Eosinophils/100 WBC (Bld) 4 % Normal [facility] Comment on above: Performed By: #### B FCC ####[facility] Dxfvxvxwqm[address] [place], [place] [address]Dr. Shahbaz Rogel Lymphocytes/100 WBC (Bld) 12 % Normal [facility] Comment on above: Performed By: #### B FCC ####[facility] S[address]vnygzt32[address] [place] [phone]. Shahbaz Rogel Monocytes/100 WBC (Bld) 4 % Normal [facility] Comment on above: Performed By: #### B FCC ####[facility] Yvqdkrslgm6033 [place] [phone]. Shahbaz Rogel RBC 67 cubic mm Normal [facility] Comment on above: Performed By: #### B FCC ####[facility] Oosnyiracz4[address] [place], [place] [address]Dr. Shahbaz Rogel SEGS 80 % Normal [facility] Comment on above: Performed By: #### B FCC ####[facility] [address]fwdhzmrcn[address] [place], [place] [address]Dr. Shahbaz Rogel WBC BODY FLUID 223 cubic mm Normal [facility] Comment on above: Performed By: #### B FCC ####[facility] Purqnzxchj4550[address] [place], [place] [address]Dr. Shahbaz Rogel CULTURE OTHERon 07-04-2022 CULTURE OTHER Culture Observations : NO GROWTH AT 48 HOURS. Normal [facility] Comment on above: Performed By: #### O THCX ####[facility] Dhvchgunyp24[address] [place], [place] [address]Dr. Shahbaz Rogel CYTOLOGYon 07-04-2022 SENT TO REF LAB 07/04/22 Normal [facility] Comment on above: Performed By: #### C YTO ####[facility] Jqdsspmvvf[address] [place], [place] [address]Dr. Shahbaz Rogel Covid-19 PCR (CVDTB)on SARS-CoV-2 (COVID-19) RNA PAVAN+probe Ql (Unsp spec) Not detected Normal NOT DETECTED [facility] Comment on above: Result Comment: When [...] for this test is supported by the [employer] of Health and Human Service's declaration [...] be used). Performed By: #### C VDTBH ####[facility] Dmtedmfnbp50[address] [place], [place] [address]Dr. Shahbaz Rogel GRAM STAINon 07-04-2022 COMMENTS NO ORGANISMS OBSERVED Normal [facility] Comment on above: Performed By: #### G STAIN ####[facility] Paivypivux[address] [place], [place] [address]Dr. Shahbaz Rogel DIPHTHEROIDS Normal [facility] Comment on above: Performed By: #### G STAIN ####[facility] Lweqatdhdo[address] [place], [place] [address]Dr. Shahbaz Rogel EPITHELIALS Normal [facility] Comment on above: Performed By: #### G STAIN ####[facility] Juchdsxwyk[address] [place], [place] [address]Dr. Shahbaz Rogel FUNGAL ELEMENTS Normal [facility] Comment on above: Performed By: #### G STAIN ####[facility] Hadrpfohqm[address] [place], [place] [address]Dr. Shahbaz Rogel GRAM NEG BACILLI Normal [facility] Comment on above: Performed By: #### G STAIN ####[facility] Cmlohvtkic[address] [place], [place] [address]Dr. Shahbaz Rogel GRAM NEG DIPPLOCOCCI Normal [facility] Comment on above: Performed By: #### G STAIN ####[facility] Bwzflcyaml[address] [place], [place] [address]Dr. Shahbaz Rogel GRAM POS BACILLI Normal [facility] Comment on above: Performed By: #### G STAIN ####[facility] Xiphxzefwn87[address] [place], [place] [address]Dr. Shahbaz Rogel GRAM POSITIVE COCCI Normal [facility] Comment on above: Performed By: #### G STAIN ####[facility] Wv[address]hpgeyw[address] [place] [address]Dr. Shahbaz Rogel GRAM STAIN SOURCE Rt Lower Lobe Bronch ial Washing Normal [facility] Comment on above: Performed By: #### G STAIN ####[facility] Zhskqaiojl[address] [place] [phone]. Shahbaz Rogel GS_DIPTH Normal [facility] Comment on above: Performed By: #### G STAIN ####[facility] Ypgvrrrxtj94[address] [place] [phone]. Shahbaz Rogel WBC RARE Normal [facility] Comment on above: Performed By: #### G STAIN ####[facility] Sfylqwksbp5[address] [place] [address]Dr. Shahbaz Rogel PROF 14(COMP METB)on 022 Albumin [Mass/Vol] 3.6 g/dL Normal 3.4-5.0 [facility] Comment on above: Performed By: #### C CINDY PAZ ####[facility] Halhoeombt[address] [place] [address]Dr. Shahbaz Rogel Albumin/Globulin [Mass ratio] 1.1 {ratio} Normal [facility] Comment on above: Performed By: #### C CINDY PAZ ####[facility] Rkwemqtjam8[address] [place] [address]Dr. Shahbaz Rogel ALP [Catalytic activity/Vol] 102 U/L Normal 46-116 [facility] Comment on above: Performed By: #### C JACKSON, CMAROXANNA ####[facility] Mfzxswzlrf6[address] [place] [phone]. Shahbaz Rogel ALT [Catalytic activity/Vol] 19 U/L Normal 14-59 [facility] Comment on above: Performed By: #### C JACKSON, CMADM ####[facility] Tslmhscqyy8[address] [place] [address]Dr. Shahbaz Rogel Anion gap [Moles/Vol] 9.5 mmol/L Normal [facility] Comment on above: Performed By: #### C JACKSON, CMADM ####[facility] Aaoyqrqtbz5296 [place] [phone]. Shahbaz Rogel AST [Catalytic activity/Vol] 19 U/L Normal 15-37 [facility] Comment on above: Performed By: #### C MP, CMADM ####[facility] Urtgarkqhn25[address] [place] [phone]. Shahbaz Rogel Bilirubin [Mass/Vol] 0.3 mg/dL Normal 0.2-1.0 [facility] Comment on above: Performed By: #### C JACKSON, CMADM ####[facility] Qtyxopwots[address] [place] [address]Dr. Shahbaz Rogel Calcium [Mass/Vol] 8.8 mg/dL Normal 8.5-10.1 [facility] Comment on above: Performed By: #### C JACKSON, CMADM ####[facility] Wiuatohtqm[address] [place], [place] [address]Dr. Shahbaz Rogel Chloride [Moles/Vol] 107 mmol/L Normal 98-107 [facility] Comment on above: Performed By: #### C JACKSON, CMADM ####[facility] Sppkckcqzb4404 [place] [address]Dr. Shahbaz Rogel CO2 [Moles/Vol] 29.5 mmol/L Normal 21.0-32.0 [facility] Comment on above: Performed By: #### C JACKSON, CMADM ####[facility] Jzntorcmks[address] [place] [address]Dr. Shahbaz Rogel Creatinine [Mass/Vol] 0.97 mg/dL Normal 0.55-1.02 [facility] Comment on above: Performed By: #### C JACKSON, CMADM ####[facility] Nemixvdhqb22[address] [place] [phone]. Shahbaz Rogel EGFR-AF BELGIAN >60 Normal >=60 [facility] Comment on above: Performed By: #### C JACKSON, CMADM ####[facility] Duynszlbzs[address] [place] [address]Dr. Shahbaz Rogel EGFR-NON AF BELGIAN 59 mL/min/1.73m2 Critically low >=60 [facility] Comment on above: Performed By: #### C JACKSON, CMADM ####[facility] Ugppcdqrgb3808 [place] [address]Dr. Shahbaz Rogel Globulin (S) [Mass/Vol] 3.2 g/dL Normal [facility] Comment on above: Performed By: #### C JACKSON, CMADM ####[facility] Zkzntekjsz6[address] [place] [address]Dr. Shahbaz Rogel Glucose [Mass/Vol] 89 mg/dL Normal 74-106 [facility] Comment on above: Performed By: #### C JACKSON, CMADM ####[facility] Cnssksluvl7975 [place] [address]Dr. Shahbaz Rogel Potassium [Moles/Vol] 4.0 mmol/L Normal 3.5-5.1 [facility] Comment on above: Performed By: #### C JACKSON, CMADM ####[facility] Unmdrezwtt2[address] [place], [place] [address]Dr. Shahbaz Rogel Protein [Mass/Vol] 6.8 g/dL Normal 6.4-8.2 [facility] Comment on above: Performed By: #### C JACKSON, CMADM ####[facility] Vfasrolfeg[address] [place], [place] [address]Dr. Shahbaz Rogel Sodium [Moles/Vol] 142 mmol/L Normal 136-145 [facility] Comment on above: Performed By: #### C JACKSON, CMADM ####[facility] Mgtsworbmv[address] [place], [place] [address]Dr. Shahbaz Rogel Urea nitrogen [Mass/Vol] 11.0 mg/dL Normal 7.0-18.0 [facility] Comment on above: Performed By: #### C JACKSON, CMADM ####[facility] Hrvlmfwfyc9[address] [place], [place] [address]Dr. Shahbaz Rogel Urea nitrogen/Creatinine [Mass ratio] 11.3 mg/mg Normal [facility] Comment on above: Performed By: #### C JACKSON, CMADM ####[facility] Gplorzchex6[address] [place], [place] [address]Dr. Shahbaz Juan F T4on 07-04-2022 T4 [Mass/Vol] 4.70 ug/dL Critically low 4.80-13.90 [facility] Comment on above: Performed By: #### T SH, T4 ####[facility] Zacmllgiov280[address] [place] [phone]. Shahbaz Rogel TSHon 07-04-2022 TSH 0.359 uIU/mL Normal 0.358-3.74 0 [facility] Comment on above: Performed By: #### T SH, T4 ####[facility] [address]jtnknt[address] [place], [place] [id number]. Shahbaz Rogel XR CHEST 1 Von 07-04-2022 XR CHEST 1 V Normal [facility] XR CHEST 1 V Normal [facility] CHLAMYDIA PNEUMONIAE IgG IgM IgAon 06-27-2022 Chlamydia pneumoniae IgA <1:16 Normal Neg:<1:16 [facility] Comment on above: Performed By: #### C HLMPNE ####[facility] Tdgrsqaqjm[address] [place], [place] [address]Dr. Shahbaz Rogel Chlamydia pneumoniae IgG <1:16 Normal Neg:<1:16 [facility] Comment on above: Performed By: #### C HLMPNE ####[facility] Aazpqjxylr[address] [place], [place] [address]Dr. Shahbaz Rogel Chlamydia pneumoniae IgM <1:10 Normal Neg:<1:10 [facility] Comment on above: Performed By: #### C HLMPNE ####[facility] Dggvtoubgp7[address] [place], [place] [address]Dr. Shahbaz Rogel Test Information: Comment Normal [facility] Comment on above: Result Comment: This [...] or procedure. Performed By: #### C HLMPNE ####[facility] Omhdsjyfmb[address] [place], [place] [address]Dr. Shahbaz Rogel Covid-19 PCR (CVDTB)on 06-03 SARS-CoV-2 (COVID-19) RNA PAVAN+probe Ql (Unsp spec) Not detected Normal NOT DETECTED [facility] Comment on above: Result Comment: This test is not yet approved or cleared by the [place] FDA. When there are no FDA-approved or cleared tests available, and other criteria are met, FDA can make tests available under an emergency access mechanism called an Emergency Use Authorization (EUA). The EUA for this test is supported by the [place] of Health and Human Service's (HHS's) declaration [...] with SARS-CoV-2. Performed By: #### C VDTBH ####[facility] Ydejjzjhap[address] [place], [place] [address]Dr. Shahbaz Rogel CYCLIC CITRULLINATED PEPTIDE AB (CCP)on 06-25-2022 CCP Antibodies IgG/IgA 13 units Normal 0-19 [facility] Comment on above: Result Comment: Nega tive <20 Weak positive 20 - 39 Moderate positive 40 - 59 Strong positive >59 Performed By: #### C CPAB ####[facility] Bmjfnulqul[address] [place] [address]Dr. Shahbaz Rogel ANTI NEUTROPHIL CYTOPLASMIC AB (ANCA) PRon 06-24-2022 Anti-MPO Antibodies <0.2 Normal 0.0-0.9 [facility] Comment on above: Result Comment: Perf ormed at: BN Performed By: #### A NCAP ####[facility] Mhxlcfscjy7[address] [place] [address]Dr. Shahbaz Rogel Anti-PR3 Antibodies 5.0 units Critically high 0.0-0.9 [facility] Comment on above: Result Comment: Perf ormed at: BN Performed By: #### A NCAP ####[facility] Otuxmvhwoa[address] [place] [address]Dr. Lilajarrod Juan F Atypical pANCA <1:20 Normal Neg:<1:20 [facility] Comment on above: Result Comment: The atypical pANCA pattern has been observed in a significantpercentage of patients with ulcerative colitis, primary sclerosingcholangitis and autoimmune hepatitis.Performed at: CB Performed By: #### A NCAP ####[facility] Xqfryoffrd[address] [place] [address]Dr. Shahbaz Rogel Cytoplasmic (C-ANCA) <1:20 Normal Neg:<1:20 [facility] Comment on above: Result Comment: Perf ormed at: CB Performed By: #### A NCAP ####[facility] Qdrbewwelw7[address] [place] [address]Dr. Shahbaz Rogel Perinuclear (P-ANCA) 1:80 Critically high Neg:<1:20 [facility] Comment on above: Result Comment: The presence of positive fluorescence exhibiting P-ANCA or C-ANCApatterns alone is not specific for the diagnosis of Ada'sGranulomatosis (WG) or microscopic polyangiitis. Decisions abouttreatment should not be based solely on ANCA IFA results. TheInternational ANCA Group Consensus recommends follow up testing ofpositive sera with both MA-3 and MPO-ANCA enzyme immunoassays. Asmany as 5% serum samples are positive only by EIA.Ref. AM J Clin Pathol 1999;111:507-513.Performed at: CB Performed By: #### A NCAP ####[facility] Xw[address]ehqdez[address] [place] [address]Dr. Shahbaz Rogel ANTIGLOMERULAR BASEMENT MEMB ANTOINE ABSon 06-24-2022 Anti-GBM Antibodies <0.2 Normal 0.0-0.9 [facility] Comment on above: Performed By: #### A GBM ####[facility] Iriwvhlhei[address] [place] [address]Dr. Shahbaz Rogel SHAHANA EIA W/REFLEX 5 BIOMARKER Son 06-23-2022 SHAHANA Direct Negative Normal Negative [facility] Comment on above: Performed By: #### A NARF ####[facility] Xgunuraujc[address] [place] [address]Dr. Shahbaz Rogel ANTISCLERODERMA ABon 022 Antiscleroderma-70 Antibodies <0.2 Normal 0.0-0.9 [facility] Comment on above: Performed By: #### A NSCLER ####[facility] Ifucmfjidn7[address] [place], [place] [address]Dr. Shahbaz Rogel RHEUMATOID FACTORon 06-23-20 RA Latex Turbid. <10.0 Normal <14.0 [facility] Comment on above: Performed By: #### R F ####[facility] Vmryhlkalq92[address] [place], [place] [address]Dr. Shahbaz Rogel CBC AUTO DIFFon 06-22-2022 BASO # 0.0 103/ul Normal 0.0-0.1 [facility] Comment on above: Performed By: #### C BC ####[facility] Nejrblgxde[address] [place], [place] [address]Dr. Shahbaz Rogel Basophils/100 WBC (Bld) 0.5 % Normal 0.2-2.0 [facility] Comment on above: Performed By: #### C BC ####[facility] Gxrbpspwpo[address] [place], [place] [address]DrChen Rogel EO # 0.1 103/ul Normal 0.0-0.7 [facility] Comment on above: Performed By: #### C BC ####[facility] Lcvvrltvtw[address] [place], [place] [address]Dr. Shahbaz Rogel Eosinophils/100 WBC (Bld) 3.4 % Normal 0.9-7.0 [facility] Comment on above: Performed By: #### C BC ####[facility] Ektnkbrkfx[address] [place], [place] [address]Dr. Shahbaz Rogel Erythrocyte distribution width (RBC) [Ratio] 13.2 % Normal 11.0-15.0 [facility] Comment on above: Performed By: #### C BC ####[facility] Sdnqimfnhz[address] [place], [place] [address]DrChen Rogel Hematocrit (Bld) [Volume fraction] 45.6 % Normal 36.0-48.0 [facility] Comment on above: Performed By: #### C BC ####[facility] Mitqjjougw[address] [place] [address]Dr. Shahbaz Rogel Hemoglobin (Bld) [Mass/Vol] 14.7 g/dL Normal 12.0-16.0 [facility] Comment on above: Performed By: #### C BC ####[facility] Zschxmrpmw[address] [place], [place] [address]DrChen Rogel IG # 0.01 10e3/ul Normal 0.00-0.03 [facility] Comment on above: Performed By: #### C BC ####[facility] Sjxganefam[address] [place], [place] [address]DrChen Rogel IG % 0.3 % Normal 0.0-0.5 [facility] Comment on above: Performed By: #### C BC ####[facility] Dgevdxlonp[address] [place], [place] [address]DrChen Rogel LYMPH # 1.0 103/ul Critically low 1.2-3.8 [facility] Comment on above: Performed By: #### C BC ####[facility] Ydzyzakebf[address] [place], [place] [address]DrChen Lilajarrod Rogle Lymphocytes/100 WBC (Bld) 25.7 % Normal 20.5-60.0 [facility] Comment on above: Performed By: #### C BC ####[facility] Viwibdrfzf[address] [place], [place] [address]DrChen Rogel MANUAL DIFF REQ NO Normal [facility] Comment on above: Performed By: #### C BC ####[facility] Fklipuxjyv39[address] [place], [place] [address]DrChen Rogel MCH (RBC) [Entitic mass] 28.1 pg Normal 26.7-34.0 [facility] Comment on above: Performed By: #### C BC ####[facility] Nmmbcqnhqq465[address] [place], [place] [address]DrChen Rogel MCHC (RBC) [Mass/Vol] 32.2 g/dL Normal 29.9-35.2 [facility] Comment on above: Performed By: #### C BC ####[facility] Rkfiinvair165[address] [place], [place] [address]DrChen Rogel MCV (RBC) [Entitic vol] 87.2 fL Normal 81.0-99.0 [facility] Comment on above: Performed By: #### C BC ####[facility] Yzjpjqabiq8988[address] [place], [place] [address]DrChen Rogel MONO # 0.2 103/ul Critically low 0.3-0.8 [facility] Comment on above: Performed By: #### C BC ####[facility] Pzswcsfgnm1767[address] [place], [place] [address]DrChen Rogel Monocytes/100 WBC (Bld) 6.0 % Normal 1.7-12.0 [facility] Comment on above: Performed By: #### C BC ####[facility] Bzwwkveukz33[address] [place], [place] [address]DrChen Rogel NEUT # 2.5 103/ul Normal 1.4-6.5 [facility] Comment on above: Performed By: #### C BC ####[facility] Aayzkvrixz33[address] [place], [place] [address]DrChen Rogel Neutrophils/100 WBC (Bld) 64.1 % Normal 43.0-75.0 [facility] Comment on above: Performed By: #### C BC ####[facility] Tbgsvcttyr3329[address] [place], [place] [address]DrChen Rogel Platelet mean volume (Bld) [Entitic vol] 9.4 fL Critically low 9.5-13.5 [facility] Comment on above: Performed By: #### C BC ####[facility] Xkhbbcffzy3998[address] [place], [place] [address]DrChen Rogel PLT 212 103/ul Normal 150-450 [facility] Comment on above: Performed By: #### C BC ####[facility] Wzsiozkzme2954[address] [place], [place] [address]DrChen Rogel RBC 5.23 106/ul Normal 4.20-5.40 [facility] Comment on above: Performed By: #### C BC ####[facility] Ddqcoevbqn75[address] [place] [address]Dr. Shahbaz Rogel WBC 3.9 103/ul Critically low 4.0-11.0 [facility] Comment on above: Performed By: #### C BC ####[facility] Glpsotdivi672867 [address] [place], [place] [address]DrChen Rogel PROF 14(COMP METB)on 022 Albumin [Mass/Vol] 4.1 g/dL Normal 3.4-5.0 [facility] Comment on above: Performed By: #### C MP ####[facility] Etbeigndfh096967 [address] [place], [place] [address]Dr. Shahbaz Rogel Albumin/Globulin [Mass ratio] 1.1 {ratio} Normal [facility] Comment on above: Performed By: #### C MP ####[facility] Wwisrkswor380[address] [place], [place] [address]Dr. Shahbaz Rogel ALP [Catalytic activity/Vol] 133 U/L Critically high 46-116 [facility] Comment on above: Performed By: #### C MP ####[facility] Woxthvatpb760967 [address] [place], [place] [address]Dr. Shahbaz Rogel ALT [Catalytic activity/Vol] 29 U/L Normal 14-59 [facility] Comment on above: Performed By: #### C MP ####[facility] Hbyqrqlsxe357767 [address] [place], [place] [address]Dr. Shahbaz Rogel Anion gap [Moles/Vol] 10.9 mmol/L Normal [facility] Comment on above: Performed By: #### C MP ####[facility] Gaiuyowkvr867967 [address] [place], [place] [address]Dr. Shahbaz Rogel AST [Catalytic activity/Vol] 23 U/L Normal 15-37 [facility] Comment on above: Performed By: #### C MP ####[facility] Zxyyajwmdp049167 [address] [place], [place] [address]Dr. Shahbaz Rogel Bilirubin [Mass/Vol] 0.3 mg/dL Normal 0.2-1.0 [facility] Comment on above: Performed By: #### C MP ####[facility] Yqnervewng[address] [place] [address]Dr. Shahbaz Juan F Calcium [Mass/Vol] 9.1 mg/dL Normal 8.5-10.1 [facility] Comment on above: Performed By: #### C MP ####[facility] Mrhwduqsou8519 [place] [address]Dr. Shahbaz Juan F Chloride [Moles/Vol] 103 mmol/L Normal 98-107 [facility] Comment on above: Performed By: #### C MP ####[facility] Dslcewmcdd749567 [address] [place], [place] [address]Dr. Shahbaz Juan F CO2 [Moles/Vol] 30.8 mmol/L Normal 21.0-32.0 [facility] Comment on above: Performed By: #### C MP ####[facility] Cwjdccyvgz948[address] [place], [place] [address]Dr. Shahbaz Juan F Creatinine [Mass/Vol] 1.02 mg/dL Normal 0.55-1.02 [facility] Comment on above: Performed By: #### C MP ####[facility] Ucynkdnzlg180[address] [place], [place] [address]Dr. Shahbaz Juan F EGFR-AF BELGIAN >60 Normal >=60 [facility] Comment on above: Performed By: #### C MP ####[facility] Jspddlmxmq312867 [address] [place], [place] [address]Dr. Shahbaz Rogel EGFR-NON AF BELGIAN 56 mL/min/1.73m2 Critically low >=60 [facility] Comment on above: Performed By: #### C MP ####[facility] Tvnelrftto706[address] [place], [place] [address]Dr. Shahbaz Rogel Globulin (S) [Mass/Vol] 3.7 g/dL Normal [facility] Comment on above: Performed By: #### C MP ####[facility] Wzbpnkoakf1005[address] [place], [place] [address]Dr. Shahbaz Rogel Glucose [Mass/Vol] 80 mg/dL Normal 74-106 [facility] Comment on above: Performed By: #### C MP ####[facility] Tzysuzbyig[address] [place] [id number]. Shahbaz Rogel Potassium [Moles/Vol] 3.7 mmol/L Normal 3.5-5.1 [facility] Comment on above: Performed By: #### C MP ####[facility] Mrfceukxdp0919 [place] [phone]. Shahbaz Rogel Protein [Mass/Vol] 7.8 g/dL Normal 6.4-8.2 [facility] Comment on above: Performed By: #### C MP ####[facility] Jsjnaecynu32[address] [place] [address]Dr. Shahbaz Rogel Sodium [Moles/Vol] 141 mmol/L Normal 136-145 [facility] Comment on above: Performed By: #### C MP ####[facility] Jchydadrai5612 [place] [address]Dr. Shahbaz Juan F Urea nitrogen [Mass/Vol] 10.0 mg/dL Normal 7.0-18.0 [facility] Comment on above: Performed By: #### C MP ####[facility] Zygkcphdck6738 [place] [address]Dr. Shahbaz Rogel Urea nitrogen/Creatinine [Mass ratio] 9.8 mg/mg Normal [facility] Comment on above: Performed By: #### C MP ####[facility] Xtloowvmpt3921 [place] [address]Dr. Shahbaz Juan F SED RATE [facility] 2021 SED RATE 17 mm/hr Normal <=30 [facility] Comment on above: Performed By: #### S EDR ####[facility] Ieukgcgqzb9224[address] [place], [place] [address]Dr. Shahbaz Juan F CT CHEST HI RESOLUTIONon CT CHEST HI RESOLUTION Normal Th [facility] XR ANKLE RT MIN 3 VIEWSon XR ANKLE RT MIN 3 VIEWS Normal [facility] CT CHEST WO CONon 03-03-2022 CT CHEST WO CON Normal [facility] CT CSPINE WO CONon 06-02-[address] CSPINE WO CON Normal [facility] XR CHEST 2 Von 03-03-2022 XR CHEST 2 V Normal [facility] XR STERNUM MIN 2 VIEWSon XR STERNUM MIN 2 VIEWS Normal Th e [facility] CT HEAD WO CONon 03-02-2022 CT HEAD WO CON Normal [facility] CBC AUTO DIFFon 01-21-2022 BASO # 0.0 103/ul Normal 0.0-0.1 [facility] Comment on above: Performed By: #### C BC ####[facility] Zhqrwyzkhb7022 [place] [address]Dr. Shahbaz Rogel Basophils/100 WBC (Bld) 0.0 % Critically low 0.2-2.0 [facility] Comment on above: Performed By: #### C BC ####[facility] Tmdcpzbsyz3916 [place] [address]Dr. Shahbaz Rogel EO # 0.0 103/ul Normal 0.0-0.7 [facility] Comment on above: Performed By: #### C BC ####[facility] Fxetanlirj8815 [place] [address]Dr. Shahbaz Rogel Eosinophils/100 WBC (Bld) 0.0 % Critically low 0.9-7.0 [facility] Comment on above: Performed By: #### C BC ####[facility] Jqpxlslozj5[address] [place], [place] [address]Dr. Shahbaz Rogel Erythrocyte distribution width (RBC) [Ratio] 14.2 % Normal 11.0-15.0 [facility] Comment on above: Performed By: #### C BC ####[facility] Yhxrhsdebl6125[address] [place], [place] [address]Dr. Shahbaz Rogel Hematocrit (Bld) [Volume fraction] 38.9 % Normal 36.0-48.0 [facility] Comment on above: Performed By: #### C BC ####[facility] Olgrthdwdx608067 [address] [place], [place] [address]Dr. Shahbaz Rogel Hemoglobin (Bld) [Mass/Vol] 11.8 g/dL Critically low 12.0-16.0 [facility] Comment on above: Performed By: #### C BC ####[facility] Ohxzggfvqo3075 [place] [phone]. Shahbaz Rogel IG # 0.03 10e3/ul Normal 0.00-0.03 [facility] Comment on above: Performed By: #### C BC ####[facility] Mbznfemadb9325 [place] [phone]. Shahbaz Rogel IG % 0.4 % Normal 0.0-0.5 [facility] Comment on above: Performed By: #### C BC ####[facility] Qimsnvqmyg0985 [place] [address]Dr. Shahbaz Juan F LYMPH # 0.8 103/ul Critically low 1.2-3.8 [facility] Comment on above: Performed By: #### C BC ####[facility] Jwwxkaqnoq1863 [place] [address]DrChen Rogel Lymphocytes/100 WBC (Bld) 10.3 % Critically low 20.5-60.0 [facility] Comment on above: Performed By: #### C BC ####[facility] Iuuaowwvnv9225 [place] [address]DrChen Shahbaz Rogel MANUAL DIFF REQ NO Normal [facility] Comment on above: Performed By: #### C BC ####[facility] Owajzpylcm1231 [place] [address]Dr. Shahbaz Juan F MCH (RBC) [Entitic mass] 27.1 pg Normal 26.7-34.0 [facility] Comment on above: Performed By: #### C BC ####[facility] Vcmgccilsm9[address] [place], [place] [id number]. Shahbaz Rogel MCHC (RBC) [Mass/Vol] 30.3 g/dL Normal 29.9-35.2 [facility] Comment on above: Performed By: #### C BC ####[facility] Rlmsgqoyac5095 [place] [address]Dr. Shahbaz Juan F MCV (RBC) [Entitic vol] 89.2 fL Normal 81.0-99.0 [facility] Comment on above: Performed By: #### C BC ####[facility] Crkajisrfy9022 [place] [phone]. Shahbaz Rogel MONO # 0.4 103/ul Normal 0.3-0.8 [facility] Comment on above: Performed By: #### C BC ####[facility] Nvocplmyjj2349 [place] [phone]. Shahbaz Rogel Monocytes/100 WBC (Bld) 4.7 % Normal 1.7-12.0 [facility] Comment on above: Performed By: #### C BC ####[facility] Rrweysgizf227167 [address] [place], [place] [address]Dr. Shahbaz Rogel NEUT # 6.6 103/ul Critically high 1.4-6.5 [facility] Comment on above: Performed By: #### C BC ####[facility] Omgcszdijt448567 [address] [place], [place] [address]Dr. Shahbaz Rogel Neutrophils/100 WBC (Bld) 84.6 % Critically high 43.0-75.0 [facility] Comment on above: Performed By: #### C BC ####[facility] Jeujehaaox357567 [address] [place], [place] [address]Dr. Shahbaz Rogel Platelet mean volume (Bld) [Entitic vol] 10.0 fL Normal 9.5-13.5 [facility] Comment on above: Performed By: #### C BC ####[facility] Nvyqrwrcbo226467 [address] [place], [place] [address]Dr. Shahbaz Rogel PLT 165 103/ul Normal 150-450 [facility] Comment on above: Performed By: #### C BC ####[facility] Incohoamwz004067 [address] [place], [place] [address]Dr. Shahbaz Rogel RBC 4.36 106/ul Normal 4.20-5.40 [facility] Comment on above: Performed By: #### C BC ####[facility] Rhvznlqeos910667 [address] [place], [place] [address]Dr. Shahbaz Rogel WBC 7.8 103/ul Normal 4.0-11.0 [facility] Comment on above: Performed By: #### C BC ####[facility] Fhfzczbcbe7357 [place] [address]Dr. Shahbaz Rogel ER URINE PROFILEon 2 Bilirubin Ql (U) Negative Normal NEGATIVE [facility] Comment on above: Performed By: #### E RUR ####[facility] Jdrculhyiu532167 [address] [place], [place] [address]Dr. Shahbaz Rogel Clarity (U) CLEAR Normal CLEAR [facility] Comment on above: Performed By: #### E RUR ####[facility] Ntwzxcerot7470[address] [place], [place] [address]Dr. Shahbaz Rogel Color (U) LT. YELLOW Normal YELLOW [facility] Comment on above: Performed By: #### E RUR ####[facility] Lpvcfkqbui785667 [address] [place], [place] [address]Dr. Shahbaz Juan F ERUAHD A micrscopic examina tion will be performed if indicated. Normal [facility] Comment on above: Performed By: #### E RUR ####[facility] Qikywswmhj6040[address] [place], [place] [address]Dr. Shahbaz Rogel Glucose Ql (U) Negative Normal NEGATIVE [facility] Comment on above: Performed By: #### E RUR ####[facility] Bxyimiavke161667 [address] [place], [place] [address]Dr. Shahbaz Rogel Hemoglobin Ql (U) Negative Normal NEGATIVE [facility] Comment on above: Performed By: #### E RUR ####[facility] Kdqnnzspxk417767 [address] [place], [place] [address]Dr. Shahbaz Rogel Ketones Ql (U) Negative Normal NEGATIVE [facility] Comment on above: Performed By: #### E RUR ####[facility] Xsohwjfgst52[address] [place], [place] [address]Dr. Lilalan Rogel LEUKOCYTES Negative Normal NEGATIVE [facility] Comment on above: Performed By: #### E RUR ####[facility] Herqazjykt0437[address] [place], [place] [address]Dr. Lilalan Rogel Nitrite Ql (U) Negative Normal NEGATIVE [facility] Comment on above: Performed By: #### E RUR ####[facility] Jqbtofwsll6141 [place] [address]Dr. Shahbaz Rogel pH (U) 6.0 [pH] Normal 5-9 [facility] Comment on above: Performed By: #### E RUR ####[facility] Uswzlqlmyd8874[address] [place], [place] [address]Dr. Shahbaz Rogel SPEC GRAVITY 1.020 Normal 1.005-<=1. 025 [facility] Comment on above: Performed By: #### E RUR ####[facility] Wfgzcpffof2724[address] [place], [place] [address]Dr. Shahbaz Rogel UA PROTEIN Negative Normal NEGATIVE/ TRACE [facility] Comment on above: Performed By: #### E RUR ####[facility] Liuekkjing508967 [address] [place], [place] [address]Dr. Shahbaz Juan F UR MICRO IND NOT INDICATED Normal [facility] Comment on above: Performed By: #### E RUR ####[facility] Ikgnamirdt897267 [address] [place], [place] [address]Dr. Shahbaz Rogel Urobilinogen Qn (U) 0.2 {Melida'U}/dL Normal 0.2 - 1. 0 [facility] Comment on above: Performed By: #### E RUR ####[facility] Utcmhnybhq239[address] [place], [place] [address]Dr. Shahbaz Rogel POINT OF CARE GLUCOSEon 01-01 Glucose [Mass/Vol] 151 mg/dL Critically high 74-106 [facility] Comment on above: Performed By: #### P OCGLUC ####[facility] Gbttblimzn694067 [address] [place], [place] [address]Dr. Shahbaz Rogel Glucose [Mass/Vol] 248 mg/dL Critically high 74-106 [facility] Comment on above: Performed By: #### P OCGLUC ####[facility] Eqjuwuneha9766[address] [place], [place] [address]Dr. Shahbaz Rogel PROF 14(COMP METB)on 022 Albumin [Mass/Vol] 2.8 g/dL Critically low 3.4-5.0 [facility] Comment on above: Performed By: #### C MP ####[facility] Vzptaemjnw1443 [place] [address]Dr. Shahbaz Rogel Albumin/Globulin [Mass ratio] 0.9 {ratio} Normal [facility] Comment on above: Performed By: #### C MP ####[facility] Rafwwyvqgt1912 [place] [address]Dr. Shahbaz Rogel ALP [Catalytic activity/Vol] 90 U/L Normal 46-116 [facility] Comment on above: Performed By: #### C MP ####[facility] Kggscniogp8017 [place] [address]Dr. Shahbaz Rogel ALT [Catalytic activity/Vol] 20 U/L Normal 14-59 [facility] Comment on above: Performed By: #### C MP ####[facility] Itpdfajyfl7889 [place] [address]Dr. Lilajarrod Juan F Anion gap [Moles/Vol] 8.9 mmol/L Normal [facility] Comment on above: Performed By: #### C MP ####[facility] Eilgokmulq8567[address] [place], [place] [address]Dr. Shahbaz Juan F AST [Catalytic activity/Vol] 14 U/L Critically low 15-37 [facility] Comment on above: Performed By: #### C MP ####[facility] Opcuqazcbn8201[address] [place], [place] [address]Dr. Shahbaz Juan F Bilirubin [Mass/Vol] 0.1 mg/dL Critically low 0.2-1.3 [facility] Comment on above: Performed By: #### C MP ####[facility] Mnnwfegmjm7024 [place] [address]Dr. Lilajarrod Juan F Calcium [Mass/Vol] 8.2 mg/dL Critically low 8.5-10.1 [facility] Comment on above: Performed By: #### C MP ####[facility] Bvqhxphbri8785[address] [place], [place] [address]Dr. Shahbaz Rogel Chloride [Moles/Vol] 110 mmol/L Critically high 98-107 [facility] Comment on above: Performed By: #### C MP ####[facility] Qetwyeqgul26[address] [place], [place] [id number]. Shahbaz Rogel CO2 [Moles/Vol] 28.0 mmol/L Normal 22.0-30.0 [facility] Comment on above: Performed By: #### C MP ####[facility] Cvmujbviva4723[address] [place], [place] [address]Dr. Shahbaz Rogel Creatinine [Mass/Vol] 0.78 mg/dL Normal 0.52-1.04 [facility] Comment on above: Performed By: #### C MP ####[facility] Pgiqfdxstk5068[address] [place], [place] [address]Dr. Shahbaz Rogel EGFR-AF BELGIAN >60 Normal >=60 [facility] Comment on above: Performed By: #### C MP ####[facility] Bzmxembbgd108367 [address] [place], [place] [address]Dr. Shahbaz Rogel EGFR-NON AF BELGIAN >60 Normal >=60 [facility] Comment on above: Performed By: #### C MP ####[facility] Avkvfyeenp076067 [address] [place], [place] [address]Dr. Shahbaz Rogel Globulin (S) [Mass/Vol] 3.1 g/dL Normal [facility] Comment on above: Performed By: #### C MP ####[facility] Keuxfpcqoh570467 [address] [place], [place] [address]Dr. Shahbaz Rogel Glucose [Mass/Vol] 121 mg/dL Critically high 74-106 [facility] Comment on above: Performed By: #### C MP ####[facility] Riccakxjcn561267 [address] [place], [place] [address]Dr. Shahbaz Rogel Potassium [Moles/Vol] 3.9 mmol/L Normal 3.4-5.0 [facility] Comment on above: Performed By: #### C MP ####[facility] Qnirxhnytu234167 [address] [place], [place] [address]Dr. Shahbaz Rogel Protein [Mass/Vol] 5.9 g/dL Critically low 6.1-8.2 [facility] Comment on above: Performed By: #### C MP ####[facility] Qlqreeakez5729[address] [place], [place] [address]Dr. Shahbaz Rogel Sodium [Moles/Vol] 143 mmol/L Normal 137-145 [facility] Comment on above: Performed By: #### C MP ####[facility] Rjfjjzrsff2418 [place] [address]Dr. Shahbaz Rogel Urea nitrogen [Mass/Vol] 26.0 mg/dL Critically high 7.0-18.0 [facility] Comment on above: Performed By: #### C MP ####[facility] Hxruewjiwy650467 [address] [place], [place] [address]Dr. Shahbaz Rogel Urea nitrogen/Creatinine [Mass ratio] 33.3 mg/mg Normal [facility] Comment on above: Performed By: #### C MP ####[facility] Dyrvjqcfdc13[address] [place], [place] [address]Dr. Shahbaz Rogel EWLIG-4-FIWYLZPOUPMab 2021 Enkdr-3-Xrnacgymoqc, Serum 154 mg/dL Normal 101-187 [facility] Comment on above: Performed By: #### A LPHA-1 ####[facility] Wtapudsrfv0530[address] [place], [place] [address]Dr. Shahbaz Rogel CBC AUTO DIFFon 01-20-2022 BASO # 0.0 103/ul Normal 0.0-0.1 [facility] Comment on above: Performed By: #### C BC ####[facility] Pevsqdtskn7825[address] [place], [place] [address]Dr. Shahbaz Rogel Basophils/100 WBC (Bld) 0.0 % Critically low 0.2-2.0 [facility] Comment on above: Performed By: #### C BC ####[facility] Lcymhoahss820067 [address] [place], [place] [address]Dr. Shahbaz Rogel EO # 0.0 103/ul Normal 0.0-0.7 [facility] Comment on above: Performed By: #### C BC ####[facility] Almvdfuqal9090 [place] [address]Dr. Shahbaz Rogel Eosinophils/100 WBC (Bld) 0.0 % Critically low 0.9-7.0 [facility] Comment on above: Performed By: #### C BC ####[facility] Mkxxhgdiow733667 [address] [place], [place] [address]Dr. Shahbaz Rogel Erythrocyte distribution width (RBC) [Ratio] 13.7 % Normal 11.0-15.0 [facility] Comment on above: Performed By: #### C BC ####[facility] Lmcqkbilmm9975[address] [place], [place] [address]Dr. Shahbaz Rogel Hematocrit (Bld) [Volume fraction] 41.2 % Normal 36.0-48.0 [facility] Comment on above: Performed By: #### C BC ####[facility] Xlnwxmmqmj464867 [address] [place], [place] [address]Dr. Shahbaz Rogel Hemoglobin (Bld) [Mass/Vol] 12.8 g/dL Normal 12.0-16.0 [facility] Comment on above: Performed By: #### C BC ####[facility] Okkuoufiio588467 [address] [place], [place] [address]Dr. Shahbaz Rogel IG # 0.10 10e3/ul Critically high 0.00-0.03 [facility] Comment on above: Performed By: #### C BC ####[facility] Kqvedlqqjl0530[address] [place], [place] [address]Dr. Shahbaz Rogel IG % 0.5 % Normal 0.0-0.5 [facility] Comment on above: Performed By: #### C BC ####[facility] Vufztynlvm3446[address] [place], [place] [address]Dr. Shahbaz Rogel LYMPH # 0.7 103/ul Critically low 1.2-3.8 [facility] Comment on above: Performed By: #### C BC ####[facility] Ejhflqwfrm8836[address] [place], [place] [address]Dr. Shahbaz Rogel Lymphocytes/100 WBC (Bld) 6.2 % Critically low 20.5-60.0 [facility] Comment on above: Result Comment: dif. not rqd. same as 01/18/22 Performed By: #### C BC ####[facility] Uupnszjlhs[address] [place], [place] [address]Dr. Shahbaz Rogel MANUAL DIFF REQ NO Normal [facility] Comment on above: Performed By: #### C BC ####[facility] Jsgkylbdtd5789 [place] [id number]. Shahbaz Rogel MCH (RBC) [Entitic mass] 27.2 pg Normal 26.7-34.0 [facility] Comment on above: Performed By: #### C BC ####[facility] Sjetymmatk[address] [place] [id number]. Shahbaz Rogel MCHC (RBC) [Mass/Vol] 31.1 g/dL Normal 29.9-35.2 [facility] Comment on above: Performed By: #### C BC ####[facility] Tqjluuusae[address] [place] [address]Dr. Shahbaz Juan F MCV (RBC) [Entitic vol] 87.5 fL Normal 81.0-99.0 [facility] Comment on above: Performed By: #### C BC ####[facility] Oacsskauje[address] [place], [place] [address]Dr. Lilajarrod Rogel MONO # 0.2 103/ul Critically low 0.3-0.8 [facility] Comment on above: Performed By: #### C BC ####[facility] Erxalylhjl6[address] [place], [place] [address]Dr. Lilajarrod Rogel Monocytes/100 WBC (Bld) 1.7 % Normal 1.7-12.0 [facility] Comment on above: Performed By: #### C BC ####[facility] Qidiqhvieq[address] [place], [place] [address]Dr. Shahbaz Juan F NEUT # 9.8 103/ul Critically high 1.4-6.5 [facility] Comment on above: Performed By: #### C BC ####[facility] Irntftdvuz[address] [place], [place] [id number] Lilajarrod Rogel Neutrophils/100 WBC (Bld) 91.6 % Critically high 43.0-75.0 [facility] Comment on above: Performed By: #### C BC ####[facility] Eekikknklw7[address] [place], [place] [address]Dr. Lilajarrod Rogel Platelet mean volume (Bld) [Entitic vol] 10.0 fL Normal 9.5-13.5 [facility] Comment on above: Performed By: #### C BC ####[facility] Wxubjiolpe[address] [place] [id number]. Shahbaz Rogel PLT 198 103/ul Normal 150-450 [facility] Comment on above: Performed By: #### C BC ####[facility] Fekbtozhpm[address] [place] [phone]. Shahbaz Rogel RBC 4.71 106/ul Normal 4.20-5.40 [facility] Comment on above: Performed By: #### C BC ####[facility] Kvapzbnpbs0[address] [place] [phone]. Shahbaz Rogel WBC 10.7 103/ul Normal 4.0-11.0 [facility] Comment on above: Performed By: #### C BC ####[facility] Rmmijplavw[address] [place] [address]Dr. Shahbaz Rogel POINT OF CARE GLUCOSEon 01-01 Glucose [Mass/Vol] 157 mg/dL Critically high 74-106 [facility] Comment on above: Performed By: #### P OCGLUC ####[facility] Clispmxfwh[address] [place] [address]Dr. Shahbaz Rogel Glucose [Mass/Vol] 225 mg/dL Critically high 74-106 [facility] Comment on above: Performed By: #### P OCGLUC ####[facility] Kvjfupybkq4[address] [place] [address]Dr. Shahbaz Rogel Glucose [Mass/Vol] 185 mg/dL Critically high 74-106 [facility] Comment on above: Performed By: #### P OCGLUC ####[facility] Lrkvtmjlnd4[address] [place] [address]Dr. Shahbaz Rogel Glucose [Mass/Vol] 134 mg/dL Critically high -106 [facility] Comment on above: Performed By: #### P OCGLUC ####[facility] Ibioqbcimz038[address] [place] [address]Dr. Shahbaz Rogel PROF 14(COMP METB)on 022 Albumin [Mass/Vol] 3.0 g/dL Critically low 3.4-5.0 [facility] Comment on above: Performed By: #### C MP ####[facility] Zdbrdwzspi[address] [place] [address]Dr. Shahbaz Juan F Albumin/Globulin [Mass ratio] 0.9 {ratio} Normal [facility] Comment on above: Performed By: #### C MP ####[facility] Enfyuovozs[address] [place] [address]Dr. Shahbaz Juan F ALP [Catalytic activity/Vol] 81 U/L Normal 46-116 [facility] Comment on above: Performed By: #### C MP ####[facility] Nfnwlmmbeh74[address] [place], [place] [address]Dr. Lilajarrod Rogel ALT [Catalytic activity/Vol] 14 U/L Normal 14-59 [facility] Comment on above: Performed By: #### C MP ####[facility] Scvfjrubci2737[address] [place], [place] [address]Dr. Shahbaz Rogel Anion gap [Moles/Vol] 13.1 mmol/L Normal [facility] Comment on above: Performed By: #### C MP ####[facility] Qspgamyjla848[address] [place], [place] [address]Dr. Shahbaz Juan F AST [Catalytic activity/Vol] 20 U/L Normal 15-37 [facility] Comment on above: Performed By: #### C MP ####[facility] Gdkyrlwsxe20[address] [place], [place] [address]Dr. Shahbaz Rogel Bilirubin [Mass/Vol] 0.3 mg/dL Normal 0.2-1.3 [facility] Comment on above: Performed By: #### C MP ####[facility] Ynkftfoobn4198[address] [place], [place] [address]Dr. Shahbaz Rogel Calcium [Mass/Vol] 8.5 mg/dL Normal 8.5-10.1 [facility] Comment on above: Performed By: #### C MP ####[facility] Qnbdlkoiss0640[address] [place], [place] [address]Dr. Shahbaz Rogel Chloride [Moles/Vol] 107 mmol/L Normal 98-107 [facility] Comment on above: Performed By: #### C MP ####[facility] Efgznilvuu56[address] [place] [phone]. Shahbaz Rogel CO2 [Moles/Vol] 24.0 mmol/L Normal 22.0-30.0 [facility] Comment on above: Performed By: #### C MP ####[facility] Obffoimvrv4[address] [place] [phone]. Shahbaz Rogel Creatinine [Mass/Vol] 1.00 mg/dL Normal 0.52-1.04 [facility] Comment on above: Performed By: #### C MP ####[facility] Idaknxfjfn5[address] [place] [phone]. Shahbaz Rogel EGFR-AF BELGIAN >60 Normal >=60 [facility] Comment on above: Performed By: #### C MP ####[facility] Ywqrzuiaex[address] [place] [address]Dr. Shahbaz Juan F EGFR-NON AF BELGIAN 57 mL/min/1.73m2 Critically low >=60 [facility] Comment on above: Performed By: #### C MP ####[facility] Kzfzinogeo09[address] [place] [phone]. Shahbaz Rogel Globulin (S) [Mass/Vol] 3.4 g/dL Normal [facility] Comment on above: Performed By: #### C MP ####[facility] Thqfrpjjuw44[address] [place] [phone]. Shahbaz Juan F Glucose [Mass/Vol] 153 mg/dL Critically high 74-106 [facility] Comment on above: Performed By: #### C MP ####[facility] Yutqvzjprd60[address] [place] [phone]. Shahbaz Orgel Potassium [Moles/Vol] 4.1 mmol/L Normal 3.4-5.0 [facility] Comment on above: Performed By: #### C MP ####[facility] Cohqwoznzp8[address] [place] [phone]. Shahbaz Rogel Protein [Mass/Vol] 6.4 g/dL Normal 6.1-8.2 [facility] Comment on above: Performed By: #### C MP ####[facility] Grrmbicdpk8514[address] [place], [place] [address]Dr. Shahbaz Juan F Sodium [Moles/Vol] 140 mmol/L Normal 137-145 [facility] Comment on above: Performed By: #### C MP ####[facility] Ylyijxfddp198567 [address] [place], [place] [address]Dr. Lilajarrod Rogel Urea nitrogen [Mass/Vol] 26.0 mg/dL Critically high 7.0-18.0 [facility] Comment on above: Performed By: #### C MP ####[facility] Ahdoykqvoh4[address] [place], [place] [address]Dr. Shahbaz Juan F Urea nitrogen/Creatinine [Mass ratio] 26.5 mg/mg Normal [facility] Comment on above: Performed By: #### C MP ####[facility] Fsvzmpzwqs599467 [address] [place], [place] [address]Dr. Shahbaz Juan F BNPon 01-19-2022 Natriuretic peptide B (Bld) [Mass/Vol] 117.0 pg/mL Normal <=900.0 [facility] Comment on above: Performed By: #### B LABOR RELATIONS OR PERSONNEL NEGOTIATOR, CMP ####[facility] Epwcdkcfyd[address] [place], [place] [address]Dr. Shahbaz Rogel CBC AUTO DIFFon 01-19-2022 BASO # 0.0 103/ul Normal 0.0-0.1 [facility] Comment on above: Performed By: #### C BC ####[facility] Etsawlbfeh039[address] [place], [place] [address]Dr. Shahbaz Rogel Basophils/100 WBC (Bld) 0.0 % Critically low 0.2-2.0 [facility] Comment on above: Performed By: #### C BC ####[facility] Lgkhberahm4734[address] [place], [place] [address]Dr. Shahbaz Rogel EO # 0.0 103/ul Normal 0.0-0.7 [facility] Comment on above: Performed By: #### C BC ####[facility] Iizdvjpoba6080[address] [place], [place] [address]Dr. Shahbaz Rogel Eosinophils/100 WBC (Bld) 0.0 % Critically low 0.9-7.0 [facility] Comment on above: Performed By: #### C BC ####[facility] Hopzujmhqk465967 [address] [place], [place] [address]Dr. Shahbaz Rogel Erythrocyte distribution width (RBC) [Ratio] 13.4 % Normal 11.0-15.0 [facility] Comment on above: Performed By: #### C BC ####[facility] Evzfvhosrb4360[address] [place], [place] [address]Dr. Shahbaz Rogel Hematocrit (Bld) [Volume fraction] 46.3 % Normal 36.0-48.0 [facility] Comment on above: Performed By: #### C BC ####[facility] Bdccihapex287567 [address] [place], [place] [address]DrChen Rogel Hemoglobin (Bld) [Mass/Vol] 14.3 g/dL Normal 12.0-16.0 [facility] Comment on above: Performed By: #### C BC ####[facility] Cvmmpghoou9[address]67 [address] [place], [place] [address]Dr. Shahbaz Rogel IG # 0.00 10e3/ul Normal 0.00-0.03 [facility] Comment on above: Performed By: #### C BC ####[facility] Yvqwoogkot3039[address] [place], [place] [address]DrChen Rogel IG % 0.0 % Normal 0.0-0.5 [facility] Comment on above: Performed By: #### C BC ####[facility] Ipfsunljnv5[address] [place], [place] [address]DrChen Rogel LYMPH # 0.6 103/ul Critically low 1.2-3.8 [facility] Comment on above: Performed By: #### C BC ####[facility] Hkwhnaaxcb086667 [address] [place], [place] [address]DrChen Rogel Lymphocytes/100 WBC (Bld) 14.2 % Critically low 20.5-60.0 [facility] Comment on above: Performed By: #### C BC ####[facility] Lkqxkjlnpo9[address] [place], [place] [address]DrChen Rogel MANUAL DIFF REQ NO Normal [facility] Comment on above: Performed By: #### C BC ####[facility] Eihoanbffu6[address] [place] [address]DrChen Rogel MCH (RBC) [Entitic mass] 27.7 pg Normal 26.7-34.0 [facility] Comment on above: Performed By: #### C BC ####[facility] Escfprdotv8093 [place] [address]DrChen Rogel MCHC (RBC) [Mass/Vol] 30.9 g/dL Normal 29.9-35.2 [facility] Comment on above: Performed By: #### C BC ####[facility] Yxbalaqjdn2724[address] [place], [place] [address]DrChen Rogel MCV (RBC) [Entitic vol] 89.6 fL Normal 81.0-99.0 [facility] Comment on above: Performed By: #### C BC ####[facility] Pvninkjyhs[address] [place], [place] [address]DrChen Rogel MONO # 0.0 103/ul Critically low 0.3-0.8 [facility] Comment on above: Performed By: #### C BC ####[facility] Jtjlorrtoo[address] [place], [place] [address]DrChen Rogel Monocytes/100 WBC (Bld) 1.0 % Critically low 1.7-12.0 [facility] Comment on above: Performed By: #### C BC ####[facility] Yexnfouvqo694[address] [place], [place] [address]DrChen Rogel NEUT # 3.5 103/ul Normal 1.4-6.5 [facility] Comment on above: Performed By: #### C BC ####[facility] Wohbwamnjl09216[address] [place], [place] [address]DrChen Rogel Neutrophils/100 WBC (Bld) 84.8 % Critically high 43.0-75.0 [facility] Comment on above: Performed By: #### C BC ####[facility] Vbxpcoflcz4[address] [place], [place] [address]DrChen Rogel Platelet mean volume (Bld) [Entitic vol] 9.8 fL Normal 9.5-13.5 [facility] Comment on above: Performed By: #### C BC ####[facility] Fdnhujkvoa[address] [place] [address]Dr. Shahbaz Rogel PLT 185 103/ul Normal 150-450 [facility] Comment on above: Performed By: #### C BC ####[facility] Vmkwklchgt7074[address] [place], [place] [address]Dr. Shahbaz Rogel RBC 5.17 106/ul Normal 4.20-5.40 [facility] Comment on above: Performed By: #### C BC ####[facility] Myldrwkwni550067 [address] [place], [place] [address]Dr. Shahbaz Rogel WBC 4.2 103/ul Normal 4.0-11.0 [facility] Comment on above: Performed By: #### C BC ####[facility] Dgphubebat252467 [address] [place], [place] [address]Dr. Shahbaz Rogel LACTATE/LACTIC ACIDon 2021 Lactate [Moles/Vol] 1.7 mmol/L Normal 0.7-2.0 [facility] Comment on above: Performed By: #### L ACT ####[facility] Pfggvserbj5604[address] [place], [place] [address]Dr. Shahbaz Rogel POINT OF CARE GLUCOSEon 01-01 Glucose [Mass/Vol] 173 mg/dL Critically high 74-106 [facility] Comment on above: Performed By: #### P OCGLUC ####[facility] Gfuryofthu4[address] [place], [place] [address]Dr. Shahbaz Rogel Glucose [Mass/Vol] 181 mg/dL Critically high 74-106 [facility] Comment on above: Performed By: #### P OCGLUC ####[facility] Webeddyhmn47[address] [place], [place] [address]Dr. Shahbaz Rogel Glucose [Mass/Vol] 154 mg/dL Critically high 74-106 [facility] Comment on above: Performed By: #### P OCGLUC ####[facility] Dzirlegngx[address] [place], [place] [id number]. Shahbaz Rogel PROF 14(COMP METB)on 022 Albumin [Mass/Vol] 3.5 g/dL Normal 3.4-5.0 [facility] Comment on above: Performed By: #### B LABOR RELATIONS OR PERSONNEL NEGOTIATOR, CMP ####[facility] Ftsaxtzlzn[address] [place] [address]Dr. Shahbaz Rogel Albumin/Globulin [Mass ratio] 0.9 {ratio} Normal [facility] Comment on above: Performed By: #### B LABOR RELATIONS OR PERSONNEL NEGOTIATOR, CMP ####[facility] Llzwhxwmhn00[address] [place] [address]Dr. Shahbaz Rogel ALP [Catalytic activity/Vol] 107 U/L Normal 46-116 [facility] Comment on above: Performed By: #### B LABOR RELATIONS OR PERSONNEL NEGOTIATOR, CMP ####[facility] Wccdeuncce36[address] [place] [address]Dr. Shahbaz Rogel ALT [Catalytic activity/Vol] 18 U/L Normal 14-59 [facility] Comment on above: Performed By: #### B LABOR RELATIONS OR PERSONNEL NEGOTIATOR, CMP ####[facility] Pflvigijdf5[address] [place] [address]Dr. Shahbaz Rogel Anion gap [Moles/Vol] 14.1 mmol/L Normal [facility] Comment on above: Performed By: #### B LABOR RELATIONS OR PERSONNEL NEGOTIATOR, CMP ####[facility] Bujqmiyknw[address] [place] [address]Dr. Shahbaz Rogel AST [Catalytic activity/Vol] 19 U/L Normal 15-37 [facility] Comment on above: Performed By: #### B LABOR RELATIONS OR PERSONNEL NEGOTIATOR, CMP ####[facility] Rkgadpgsck12[address] [place], [place] [address]Dr. Shahbaz Rogel Bilirubin [Mass/Vol] 0.5 mg/dL Normal 0.2-1.3 [facility] Comment on above: Performed By: #### B LABOR RELATIONS OR PERSONNEL NEGOTIATOR, CMP ####[facility] Aktgageyyq456367 [address] [place], [place] [address]Dr. Shahbaz Rogel Calcium [Mass/Vol] 8.5 mg/dL Normal 8.5-10.1 [facility] Comment on above: Performed By: #### B LABOR RELATIONS OR PERSONNEL NEGOTIATOR, CMP ####[facility] Zpalzaqldq77[address] [place] [address]Dr. Shahbaz Rogel Chloride [Moles/Vol] 103 mmol/L Normal 98-107 [facility] Comment on above: Performed By: #### B LABOR RELATIONS OR PERSONNEL NEGOTIATOR, CMP ####[facility] Jqwiicohpx6960[address] [place], [place] [address]Dr. Shahbaz Rogel CO2 [Moles/Vol] 25.4 mmol/L Normal 22.0-30.0 [facility] Comment on above: Performed By: #### B LABOR RELATIONS OR PERSONNEL NEGOTIATOR, CMP ####[facility] Aentjlqwxn9[address] [place], [place] [address]Dr. Shahbaz Rogel Creatinine [Mass/Vol] 1.48 mg/dL Critically high 0.52-1.04 [facility] Comment on above: Performed By: #### B LABOR RELATIONS OR PERSONNEL NEGOTIATOR, CMP ####[facility] Bpntvmpemt3149[address] [place], [place] [address]Dr. Shahbaz Juan F EGFR-AF BELGIAN 44 mL/min/1.73m2 Critically low >=60 [facility] Comment on above: Performed By: #### B LABOR RELATIONS OR PERSONNEL NEGOTIATOR, CMP ####[facility] Rvhsohgfuf9165[address] [place], [place] [address]Dr. Shahbaz Juan F EGFR-NON AF BELGIAN 36 mL/min/1.73m2 Critically low >=60 [facility] Comment on above: Performed By: #### B LABOR RELATIONS OR PERSONNEL NEGOTIATOR, CMP ####[facility] Ytsbuurvxz698[address] [place], [place] [address]Dr. Shahbaz Juan F Globulin (S) [Mass/Vol] 3.7 g/dL Normal [facility] Comment on above: Performed By: #### B LABOR RELATIONS OR PERSONNEL NEGOTIATOR, CMP ####[facility] Pinqvlfxez3559[address] [place], [place] [address]Dr. Shahbaz Juan F Glucose [Mass/Vol] 203 mg/dL Critically high 74-106 [facility] Comment on above: Performed By: #### B LABOR RELATIONS OR PERSONNEL NEGOTIATOR, CMP ####[facility] Vucyfyrksq928767 [address] [place], [place] [address]Dr. Shahbaz Rogel Potassium [Moles/Vol] 3.5 mmol/L Normal 3.4-5.0 [facility] Comment on above: Performed By: #### B LABOR RELATIONS OR PERSONNEL NEGOTIATOR, CMP ####[facility] Uhgkmkcxue3270[address] [place], [place] [address]Dr. Shahbaz Rogel Protein [Mass/Vol] 7.2 g/dL Normal 6.1-8.2 [facility] Comment on above: Performed By: #### B LABOR RELATIONS OR PERSONNEL NEGOTIATOR, CMP ####[facility] Vodewphjwo7800[address] [place], [place] [address]Dr. Lialjarrod Rogel Sodium [Moles/Vol] 139 mmol/L Normal 137-145 [facility] Comment on above: Performed By: #### B LABOR RELATIONS OR PERSONNEL NEGOTIATOR, CMP ####[facility] Qiwfwjmnfe7500[address] [place], [place] [address]Dr. Shahbaz Rogel Urea nitrogen [Mass/Vol] 17.0 mg/dL Normal 7.0-18.0 [facility] Comment on above: Performed By: #### B LABOR RELATIONS OR PERSONNEL NEGOTIATOR, CMP ####[facility] Neoletwcti886467 [address] [place], [place] [address]Dr. Shahbaz Rogel Urea nitrogen/Creatinine [Mass ratio] 11.5 mg/mg Normal [facility] Comment on above: Performed By: #### B LABOR RELATIONS OR PERSONNEL NEGOTIATOR, CMP ####[facility] Fluthvwxae134[address] [place], [place] [address]Dr. Shahbaz Rogel BNPon 01-18-2022 Natriuretic peptide B (Bld) [Mass/Vol] 55.0 pg/mL Normal <=900.0 [facility] Comment on above: Performed By: #### C MP, BNP, HSTROPN ####[facility] Sbpbpxrjyx646[address] [place], [place] [address]Dr. Lilajarrod Juan F CBC W MANUAL DIFFon 01-19-20 22 ATYPICAL LYMPH # 0.12 103/ul Normal [facility] Comment on above: Performed By: #### C BCMAN ####[facility] Ezlcsdcfyk25[address] [place], [place] [address]Dr. Shahbaz Rogel ATYPICAL LYMPH % 2 % Normal [facility] Comment on above: Performed By: #### C BCMAN ####[facility] Hbkvosynan2105[address] [place], [place] [address]Dr. Yilan Rogel BAND # 0.0 103/ul Normal 0.0-0.3 [facility] Comment on above: Performed By: #### C BCMAN ####[facility] Bwyustkcok[address] [place] [address]Dr. Yilan Rogel BAND % 0 % Normal 0-5 [facility] Comment on above: Performed By: #### C BCMAN ####[facility] Lingdrmvtv78[address] [place] [address]Dr. Yijarrod Rogel BASOM # 0.00 103/ul Normal 0.00-0.10 [facility] Comment on above: Performed By: #### C BCBRICE ####[facility] Yambvezbkp249[address] [place], [place] [address]Dr. Shahbaz Rogel BASOM % 0.0 % Critically low 0.2-2.0 [facility] Comment on above: Performed By: #### C BCBRICE ####[facility] Imbwznlgkc36[address] [place], [place] [address]Dr. Yijarrod Rogel BLAST # Normal [facility] Comment on above: Performed By: #### C CAIN ####[facility] Auianefmup2580[address] [place], [place] [address]Dr. Lilalan Rogel BLAST % Normal [facility] Comment on above: Performed By: #### C BCBRICE ####[facility] Bdzfftwcgb4064[address] [place], [place] [address]Dr. Shahbaz Rogel CORRECTED WBC Normal 4.0-11.0 [facility] Comment on above: Performed By: #### C BCBRICE ####[facility] Takabhuojy[address] [place], [place] [address]Dr. Shahbaz Rogel EOS # 0.25 103/ul Normal 0.00-0.70 [facility] Comment on above: Performed By: #### C BCMAN ####[facility] Axxzspdvrx9[address] [place], [place] [address]Dr. Shahbaz Rogel EOS% 4.0 % Normal 0.9-7.0 [facility] Comment on above: Performed By: #### C BCBRICE ####[facility] Uwwqrmynfg16[address] [place], [place] [address]Dr. Shahbaz Rogel HCT 46.8 % Normal 36.0-48.0 [facility] Comment on above: Performed By: #### C CAIN ####[facility] Hvvploefgj[address] [place] [id number]. hSahbaz Rogel HGB 14.9 g/dl Normal 12.0-16.0 [facility] Comment on above: Performed By: #### C CAIN ####[facility] Jhfdqroyht[address] [place] [phone]. Shahbaz Rogel LYMPHM # 0.68 103/ul Critically low 1.20-3.80 [facility] Comment on above: Performed By: #### C CAIN ####[facility] Jnoyxpwgil[address] [place] [address]Dr. Shahbaz Rogel LYMPHM% 11.0 % Critically low 20.5-60.0 [facility] Comment on above: Performed By: #### C CAIN ####[facility] Fbnvfkxuec5[address] [place] [address]Dr. Shahbaz Rogel MCH 27.6 pg Normal 26.7-34.0 [facility] Comment on above: Performed By: #### Cheri BARLOW ####[facility] Yleqfuqacy[address] [place] [address]Dr. Shahbaz Rogel MCHC 31.8 g/dl Normal 29.9-35.2 [facility] Comment on above: Performed By: #### Cheri BARLOW ####[facility] Qvwzvrxeou37[address] [place] [address]Dr. Shahbaz Rogel MCV 86.8 fL Normal 81.0-99.0 [facility] Comment on above: Performed By: #### C CAIN ####[facility] Fwowyrhwwc[address] [place] [address]Dr. Shahbaz Rogel METAMYELOCYTE # Normal [facility] Comment on above: Performed By: #### C CAIN ####[facility] Wwmfzzfnmk[address] [place] [address]Dr. Shahbaz Rogel METAMYELOCYTE % Normal [facility] Comment on above: Performed By: #### C CAIN ####[facility] Jgvnkxsrul6406 [place] [id number]. Shahbaz Rogel MONOM# 0.19 103/ul Critically low 0.30-0.80 [facility] Comment on above: Performed By: #### C CAIN ####[facility] Swgnjpyqzd220[address] [place] [phone]. Shahbaz Rogel MONOM% 3.0 % Normal 1.7-12.0 [facility] Comment on above: Performed By: #### C CAIN ####[facility] Ypjpwiismd4736 [place] [phone]. Shahbaz Rogel MPV 9.6 fL Normal 9.5-13.5 [facility] Comment on above: Performed By: #### C CAIN ####[facility] [address]xpabimadr[address] [place] [id number]. Shahbaz Rogel MYELOCYTE # Normal [facility] Comment on above: Performed By: #### Cheri BARLOW ####[facility] Ow[address]kw[address] [place] [id number]. Shahbaz Rogel MYELOCYTE % Normal [facility] Comment on above: Performed By: #### Cheri BARLOW ####[facility] Pdaydidite[address] [place], [place] [id number]. Shahbaz Rogel NRBC Normal [facility] Comment on above: Performed By: #### Cheri BARLOW ####[facility] Xjmvzwvyke[address] [place] [id number]. Shahbaz Rogel PLT 203 103/ul Normal 150-450 [facility] Comment on above: Performed By: #### C CAIN ####[facility] Hmelpv[address] [place] [id number]. Shahbaz Rogel RBC 5.39 106/ul Normal 4.20-5.40 [facility] Comment on above: Performed By: #### C CAIN ####[facility] Xpbprsslew36[address] [place] [id number]. Shahbaz Rogel RDW 13.7 % Normal 11.0-15.0 [facility] Comment on above: Performed By: #### Cheri BARLOW ####[facility] Pwtchqofzn9514 [place], [place] [address]Ri. Shahbaz Rogel SEG # 4.96 103/ul Normal 1.40-6.50 [facility] Comment on above: Performed By: #### C BCMAN ####[facility] Xdwatgfaip2701 [place], [place] [address]Bt. Shahbaz Rogel SEG % 80.0 % Critically high 43.0-75.0 [facility] Comment on above: Performed By: #### C BCMAN ####[facility] Cvkyatechk6775 [place], [place] [address]Yh. Shahbaz Rogel WBC 6.2 103/ul Normal 4.0-11.0 [facility] Comment on above: Performed By: #### C BCMAN ####[facility] Ofcuvqeyvx9370 [place], [place] [address]Hp. Shahbaz Rogel CULTURE BLOODon 01-18-2022 Microscopic examination of blood, culture Culture Observations: No growth at 5 days. Normal [facility] Comment on above: Performed By: #### B LDCX2 ####[facility] [address]izvmy[address] [place], [place] [address]Sn. Shahbaz Rogel Microscopic examination of blood, culture Culture Observations: No growth at 5 days Normal [facility] Comment on above: Performed By: #### B LDCX1 ####[facility] Tmhctwpmim2812 [place], [place] [address]Qq. Shahbaz Rogel Covid-19 PCR (CVDTB)on 12-31 SARS-CoV-2 (COVID-19) RNA PAVAN+probe Ql (Unsp spec) Not detected Normal NOT DETECTED [facility] Comment on above: Result Comment: This test is not yet approved or cleared by the [place] FDA. When there are no FDA-approved or cleared tests available, and other criteria are met, FDA can make tests available under an emergency access mechanism called an Emergency Use Authorization (EUA). The EUA for this test is supported by the Commercial Front Load Operator of Health and Human Service's (HHS's) [...] with SARS-CoV-2. Performed By: #### C VDTBH ####[facility] [address] [place] [address]. Shahbaz Rogel D-DIMERon 01-18-2022 D-DIMER 0.29 mg/L FEU Normal 0.19-0.50 [facility] Comment on above: Performed By: #### D DIM ####[facility] [address] [place] [address]. Lilajarrod [facility] D-DIMER COMMENTS SEE BELOW Normal [facility] Comment on above: Result Comment: Incr [...] generalized hospitalization. Performed By: #### D DIM ####[facility] [address] [place] [address]. jarrod Rogel INFLUENZA A AND B AGon 01-18 INFLUANEGH SEE BELOW Normal [facility] Comment on above: Result Comment: Nega tive for Flu A protein angiten. Infection due to Flu A cannot be ruled out. Flu A angiten in the sample may be below the detection limit of the test. Performed By: #### I NFLUAB ####[facility] [address] [place] [address]. Shahbaz [facility] INFLUBNEGH SEE BELOW Normal [facility] Comment on above: Result Comment: Nega tive for Flu B protein antigen. Infection due to Flu B cannot be ruled out. Flu B antigen in the sample may be below the detection limit of the test. Performed By: #### I NFLUAB ####[facility] Yneutbjlhb[address] [place], [place] [address]Dr. Shahbaz Rogel INFLUENZA A AG Negative Normal NEGATIVE SEE COMMENT [facility] Comment on above: Performed By: #### I NFLUAB ####[facility] Lyoq[address]wh[address] [place], [place] [address]Dr. Shahbaz Rogel INFLUENZA B AG Negative Normal NEGATIVE SEE COMMENT [facility] Comment on above: Performed By: #### I NFLUAB ####[facility] Lfxrs[address]ldq[address] [place], [place] [address]Dr. Shahbaz Rogel INTERNAL CONTROLS Within Normal Limits Normal Wi thin Normal Limits [facility] Comment on above: Performed By: #### I NFLUAB ####[facility] N[address] [place], [place] [address]Dr. Shahbaz Rogel LACTATE/LACTIC ACIDon 2021 Lactate [Moles/Vol] 1.0 mmol/L Normal 0.7-2.0 [facility] Comment on above: Performed By: #### L ACT ####[facility] Bwhcm[address] [place], [place] [address]Dr. Shahbaz Rogel PROF 14(COMP METB)on 022 Albumin [Mass/Vol] 3.8 g/dL Normal 3.4-5.0 [facility] Comment on above: Performed By: #### C MP, BNP, HSTROPN ####[facility] Qlyslpbv[address] [place], [place] [address]Dr. Shahbaz Rogel Albumin/Globulin [Mass ratio] 1.0 {ratio} Normal [facility] Comment on above: Performed By: #### C MP, BNP, HSTROPN ####[facility] Uw[address]uz[address] [place], [place] [address]Dr. Shahbaz Rogel ALP [Catalytic activity/Vol] 116 U/L Normal 46-116 [facility] Comment on above: Performed By: #### C MP, BNP, HSTROPN ####[facility] Ugiscyupgh[address] [place] [address]Dr. Shahbaz Rogel ALT [Catalytic activity/Vol] 16 U/L Normal 14-59 [facility] Comment on above: Performed By: #### C MP, BNP, HSTROPN ####[facility] Lgseeyyoin[address] [place] [address]Dr. Shahbaz Rogel Anion gap [Moles/Vol] 9.4 mmol/L Normal [facility] Comment on above: Performed By: #### C MP, BNP, HSTROPN ####[facility] Lakfgmodov[address] [place] [address]Dr. Shahbaz Rogel AST [Catalytic activity/Vol] 19 U/L Normal 15-37 [facility] Comment on above: Performed By: #### C MP, BNP, HSTROPN ####[facility] Uoalfraqkz[address] [place] [address]Dr. Shahbaz Rogel Bilirubin [Mass/Vol] 0.5 mg/dL Normal 0.2-1.3 [facility] Comment on above: Performed By: #### C MP, BNP, HSTROPN ####[facility] [address]zw[address] [place], [place] [address]Dr. Shahbaz Rogel Calcium [Mass/Vol] 8.9 mg/dL Normal 8.5-10.1 [facility] Comment on above: Performed By: #### C MP, BNP, HSTROPN ####[facility] Rthw[address]scvs[address] [place] [address]Dr. Shahbaz Rogel Chloride [Moles/Vol] 104 mmol/L Normal 98-107 [facility] Comment on above: Performed By: #### C MP, BNP, HSTROPN ####[facility] [address]oxs[address] [place], [place] [address]Dr. Shahbaz Rogel CO2 [Moles/Vol] 27.2 mmol/L Normal 22.0-30.0 [facility] Comment on above: Performed By: #### C MP, BNP, HSTROPN ####[facility] Rayeawaods[address] [place], [place] [address]Dr. Shahbaz Rogel Creatinine [Mass/Vol] 0.99 mg/dL Normal 0.52-1.04 [facility] Comment on above: Performed By: #### C MP, BNP, HSTROPN ####[facility] Iytxqwxfbt[address] [place] [address]Dr. Shahbaz Rogel EGFR-AF BELGIAN >60 Normal >=60 [facility] Comment on above: Performed By: #### C MP, BNP, HSTROPN ####[facility] Eqmqygxezr[address] [place] [address]Dr. Shahbaz Rogel EGFR-NON AF BELGIAN 58 mL/min/1.73m2 Critically low >=60 [facility] Comment on above: Performed By: #### C MP, BNP, HSTROPN ####[facility] Z[address]myuteeq[address] [place], [place] [address]Dr. Shahbaz Rogel Globulin (S) [Mass/Vol] 3.8 g/dL Normal [facility] Comment on above: Performed By: #### C MP, BNP, HSTROPN ####[facility] [address]qvtoacw[address] [place], [place] [address]Dr. Shahbaz Rogel Glucose [Mass/Vol] 104 mg/dL Normal 74-106 [facility] Comment on above: Performed By: #### C MP, BNP, HSTROPN ####[facility] H[address]ckcz[address] [place] [address]Dr. Shahbaz Rogel Potassium [Moles/Vol] 3.6 mmol/L Normal 3.4-5.0 [facility] Comment on above: Performed By: #### C MP, BNP, HSTROPN ####[facility] Tptr[address] [place], [place] [address]Dr. Shahbaz Rogel Protein [Mass/Vol] 7.6 g/dL Normal 6.1-8.2 [facility] Comment on above: Performed By: #### C MP, BNP, HSTROPN ####[facility] [address]mes[address] [place] [address]Dr. Shahbaz Rogel Sodium [Moles/Vol] 137 mmol/L Normal 137-145 [facility] Comment on above: Performed By: #### C MP, BNP, HSTROPN ####[facility] Ytpecpuwkz[address] [place] [id number]. Shahbaz Rogel Urea nitrogen [Mass/Vol] 9.0 mg/dL Normal 7.0-18.0 [facility] Comment on above: Performed By: #### C MP, BNP, HSTROPN ####[facility] Tnfplbjjpg44[address] [place] [id number]. Shahbaz Rogel Urea nitrogen/Creatinine [Mass ratio] 9.1 mg/mg Normal [facility] Comment on above: Performed By: #### C MP, BNP, HSTROPN ####[facility] R[address]jd[address] [place] [address]Dr. Shahbaz Rogel TROPONIN, HIGH SENSITIVITYon 01-18-2022 HSTROP 6.4 pg/mL Normal 4.0-35.5 [facility] Comment on above: Result Comment: CUT- OFF POINTS HAVE BEEN ESTABLISHED BASED ON THE FOURTH UNIVERSAL DEFINITIONS OF MYOCARDIALINFARCTION. THE UPPER REFERENCE LIMIT (URL) OF TROPONIN, DEFINED THE 99TH PERCENTILE OFcTnI DISTRIBUTION IN A REFERENCE POPULATION, HAS BEEN CONFIRMED THE DECISION THRESHOLDFOR [place] DIAGNOSIS. Performed By: #### C MP, BNP, HSTROPN ####[facility] Wfr[address]okh[address] [place] [address]Dr. Shahbaz Rogel XR CHEST 2 Von 01-18-2022 XR CHEST 2 V Normal [facility] URINALYSIS REFLEXon 04-04-20 20 Appearance (U) CLEAR Normal CLEAR [facility] Comment on above: Order Comment: No: D o not add to previous draw Performed By: #### 1 0070, 69445, 99158, 01855, 18701, 24978 #### [facility] [address] [place] [address], [facility] Bilirubin [Mass/Vol] Negative Normal NEGATIVE [facility] Comment on above: Order Comment: No: D o not add to previous draw Performed By: #### 1 0070, 89108, 47645, 37125, 60855, 73558 #### [facility] [address] [place] [address], [place] BLOOD Negative Normal NEGATIVE [facility] Comment on above: Order Comment: No: D o not add to previous draw Performed By: #### 1 0070, 53047, 04834, 23642, 92067, 13373 #### [facility] [address] [place] [address], [place] Color (U) YELLOW Normal YELLOW [facility] Comment on above: Order Comment: No: D o not add to previous draw Performed By: #### 1 0070, 91808, 72247, 73524, 04994, 40386 #### [facility] [address] [place] [address], [place] Glucose [Mass/Vol] Negative Normal NEGATIVE [facility] Comment on above: Order Comment: No: D o not add to previous draw Performed By: #### 1 0070, 96935, 11181, 34993, 33239, 29524 #### [facility] [address] [place] [address], [place] KETONE Negative Normal NEGATIVE [facility] Comment on above: Order Comment: No: D o not add to previous draw Performed By: #### 1 0070, 99352, 43762, 68246, 14102, 19796 #### [facility] [address] [place] [address], [place] LEUK ELIU Negative Normal NEGATIVE [facility] Comment on above: Order Comment: No: D o not add to previous draw Performed By: #### 1 0070, 20482, 12563, 25462, 53883, 04779 #### [facility] [address] [place] [address], [place] MICRO NOT DONE Normal [facility] Comment on above: Order Comment: No: D o not add to previous draw Result Comment: Micr oscopics not performed on urines with negative chemical reactions unless requested in original order Performed By: #### 1 0070, 54113, 07014, 75317, 34972, 58692 #### [facility] [address] [facility] [place] [address], [facility] Nitrite Ql (U) Negative Normal NEGATIVE [facility] Comment on above: Order Comment: No: D o not add to previous draw Performed By: #### 1 0070, 73234, 70817, 38792, 90029, 92982 #### [facility] [address] [facility] [place] [address], [facility] pH (Bld) 5.0 Normal 5.0-8.[address] [facility] Comment on above: Order Comment: No: D o not add to previous draw Performed By: #### 1 0070, 50991, 64656, 80545, 52228, 81058 #### [facility] [address] [facility] [place] [address], [facility] Protein (U) [Mass/Vol] Negative Normal NEGATIVE e [facility] Comment on above: Order Comment: No: D o not add to previous draw Performed By: #### 1 0070, 93283, 02354, 37105, 35370, 15525 #### [facility] [address] [place] [address], [facility] SPEC GRAV 1.012 Low 1.015-1.[address] [facility] Comment on above: Order Comment: No: D o not add to previous draw Performed By: #### 1 0070, 56338, 02704, 32591, 76323, 12143 #### [facility] [address] [facility] [place] [address], [facility] BASIC METABOLIC PANELon 07-0 2-2020 Calcium [Mass/Vol] 8.4 mg/dL Low 8.6-10.[address] [facility] Comment on above: Order Comment: No: D o not add to previous draw Performed By: #### 1 0070, 12889, 54327, 38121, 67851, 17112 #### [facility] [address] [place] [address], [place] Chloride [Moles/Vol] 101 mmol/L Normal 98-[address] [facility] Comment on above: Order Comment: No: D o not add to previous draw Performed By: #### 1 0070, 58086, 50970, 59374, 16013, 47539 #### [facility] [address] [place] [address], [facility] CO2 [Moles/Vol] 29 mmol/L Normal 21-[address] [facility] Comment on above: Order Comment: No: D o not add to previous draw Performed By: #### 1 0070, 95208, 74429, 58503, 74505, 00211 #### [facility] [address] [place] [address], [facility] Creatinine [Mass/Vol] 0.79 mg/dL Normal 0.60-1.[address] [facility] Comment on above: Order Comment: No: D o not add to previous draw Performed By: #### 1 0070, 74024, 72222, 67332, 61240, 97783 #### [facility] [address] [place] [address], [facility] GFR/1.73 sq M predicted among blacks MDRD (S/P/Bld) [Vol rate/Area] mL/min/{1.73_m2} Normal >[address] [facility] Comment on above: Order Comment: No: D o not add to previous draw Performed By: #### 1 0070, 65029, 19006, 21860, 31769, 50258 #### [facility] [address] [place] [address], [place] GFR/1.73 sq M predicted among non-blacks MDRD (S/P/Bld) [Vol rate/Area] mL/min/{1.73_m2} Normal >[address] [facility] Comment on above: Order Comment: No: D o not add to previous draw Performed By: #### 1 0070, 29349, 99612, 49986, 15484, 20948 #### [facility] [address] [place] [address], [facility] Glucose [Mass/Vol] 91 mg/dL Normal 70-[address] [facility] Comment on above: Order Comment: No: D o not add to previous draw Performed By: #### 1 0070, 84103, 59062, 97712, 35931, 94874 #### [facility] [address] [place] [address], [facility] Potassium [Moles/Vol] 3.9 mmol/L Normal 3.5-5.[address] [facility] Comment on above: Order Comment: No: D o not add to previous draw Performed By: #### 1 0070, 81391, 77175, 69348, 45550, 63888 #### [facility] [address] [facility] [place] [address], [facility] Sodium [Moles/Vol] 133 mmol/L Low 136-[address] [facility] Comment on above: Order Comment: No: D o not add to previous draw Performed By: #### 1 0070, 32823, 69535, 23511, 55068, 62473 #### [facility] [address] [place] [address], [facility] Urea nitrogen [Mass/Vol] 10 mg/dL Normal 7-[address] [facility] Comment on above: Order Comment: No: D o not add to previous draw Performed By: #### 1 0070, 56556, 48055, 39624, 41893, 22225 #### [facility] [address] [facility] [place] [address], [facility] CBC W/DIFFon 04-02-2020 ABS BASOPHILS 0.0 10*3/uL Normal 0.0-0.[address] [facility] Comment on above: Order Comment: No: D o not add to previous draw Performed By: #### 1 0070, 03961, 47168, 51099, 57846, 22248 #### [facility] [address] [facility] [place] [address], [facility] ABS IMM GRANS 0.0 10*3/uL Normal 0.0-0.[address] [facility] Comment on above: Order Comment: No: D o not add to previous draw Performed By: #### 1 0070, 08965, 81283, 24071, 31295, 62957 #### [facility] [address] [place] [address], [facility] ABS NEUTROPHILS 4.5 10*3/uL Normal 1.6-7.[address] [facility] Comment on above: Order Comment: No: D o not add to previous draw Performed By: #### 1 0070, 61571, 80377, 17431, 22702, 94167 #### [facility] [address] [facility] [place] [address], [facility] Basophils/100 WBC (Bld) 0.2 % Normal 0.0-1.[address] [facility] Comment on above: Order Comment: No: D o not add to previous draw Performed By: #### 1 0070, 85472, 05140, 74697, 85245, 48588 #### [facility] [address] [place] [address], [facility] Eosinophils (Bld) [#/Vol] 0.2 10*3/uL Normal 0.0-0.[address] [facility] Comment on above: Order Comment: No: D o not add to previous draw Performed By: #### 1 0070, 58429, 35929, 15412, 34562, 68813 #### [facility] [address] [facility] [place] [address], [facility] Eosinophils/100 WBC (Bld) 3.6 % Normal 0.0-6.[address] [facility] Comment on above: Order Comment: No: D o not add to previous draw Performed By: #### 1 0070, 03673, 97652, 49947, 76857, 11552 #### [facility] [address] [place] [address], [place] Erythrocyte distribution width (RBC) [Ratio] 12.7 % Normal 11.5-15.[address] [facility] Comment on above: Order Comment: No: D o not add to previous draw Performed By: #### 1 0070, 90592, 88325, 19420, 25961, 53975 #### [facility] [address] [place] [id number], [facility] Hematocrit (Bld) [Volume fraction] 42.9 % Normal 36.0-45.[address] [facility] Comment on above: Order Comment: No: D o not add to previous draw Performed By: #### 1 0070, 24544, 67968, 20301, 16889, 55730 #### [facility] [address] [facility] [place] [address], [facility] Hemoglobin (Bld) [Mass/Vol] 13.5 g/dL Normal 12.0-15.[address] [facility] Comment on above: Order Comment: No: D o not add to previous draw Performed By: #### 1 0070, 82033, 10466, 09168, 73148, 67059 #### [facility] [address] [facility] [place] [address], [facility] IMMATURE GRANS 0.3 % Normal 0.0-1.[address] [facility] Comment on above: Order Comment: No: D o not add to previous draw Performed By: #### 1 0070, 66625, 46539, 79604, 85486, 88011 #### [facility] [address] [facility] [place] [address], [facility] Lymphocytes (Bld) [#/Vol] 1.1 10*3/uL Low 1.2-4.[address] [facility] Comment on above: Order Comment: No: D o not add to previous draw Performed By: #### 1 0070, 89515, 76687, 12710, 59750, 38759 #### [facility] [address] [place] [address], [place] Lymphocytes/100 WBC (Bld) 18.0 % Low 20.0-45.[address] [facility] Comment on above: Order Comment: No: D o not add to previous draw Performed By: #### 1 0070, 99356, 79711, 23763, 07688, 48286 #### [facility] [address] [place] [address], [facility] MCH (RBC) [Entitic mass] 27.4 pg Normal 27.0-33.[address] [facility] Comment on above: Order Comment: No: D o not add to previous draw Performed By: #### 1 0070, 75371, 14625, 33888, 61376, 69307 #### [facility] [address] [facility] [place] [address], [facility] MCHC (RBC) [Mass/Vol] 31.5 g/dL Low 32.0-35.[address] [facility] Comment on above: Order Comment: No: D o not add to previous draw Performed By: #### 1 0070, 89644, 09101, 59480, 78214, 28013 #### [facility] [address] [facility] [address] MCV (RBC) [Entitic vol] 87.0 fL Normal 82.0-98.[address] [facility] Comment on above: Order Comment: No: D o not add to previous draw Performed By: #### 1 0070, 95748, 23258, 33121, 26053, 06333 #### [facility] [address] [facility] [place] [address], [facility] Monocytes (Bld) [#/Vol] 0.3 10*3/uL Normal 0.1-1.[address] [facility] Comment on above: Order Comment: No: D o not add to previous draw Performed By: #### 1 0070, 37013, 28841, 21421, 67892, 30432 #### [facility] [address] [place] [address], [facility] MONOS 5.5 % Normal 5.0-12.[address] [facility] Comment on above: Order Comment: No: D o not add to previous draw Performed By: #### 1 0070, 87010, 96558, 45738, 75006, 48569 #### [facility] [address] [place] [address], [facility] Neutrophils/100 WBC (Bld) 72.4 % High 40.0-72.[address] [facility] Comment on above: Order Comment: No: D o not add to previous draw Performed By: #### 1 0070, 28016, 81444, 37939, 36320, 85873 #### [facility] [address] [place] [address], [facility] Nucleated RBC/100 WBC (Bld) [Ratio] 0 % Normal 0-[address] [facility] Comment on above: Order Comment: No: D o not add to previous draw Performed By: #### 1 0070, 28532, 50860, 59028, 61804, 48008 #### [facility] [address] [place] [address], [facility] PLAT CNT 264 10*3/uL Normal 150-[address] [facility] Comment on above: Order Comment: No: D o not add to previous draw Performed By: #### 1 0070, 20977, 60496, 46896, 43029, 43758 #### [facility] [address] [place] [address], [facility] RBC (Bld) [#/Vol] 4.93 10*6/uL Normal 3.80-5.[address] [facility] Comment on above: Order Comment: No: D o not add to previous draw Performed By: #### 1 0070, 32886, 78284, 52575, 29136, 73336 #### [facility] [address] [facility] [place] [address], [facility] WBC (Bld) [#/Vol] 6.17 10*3/uL Normal 4.00-10.[address] [facility] Comment on above: Order Comment: No: D o not add to previous draw Performed By: #### 1 0070, 56743, 20960, 72723, 36594, 72920 #### [facility] [address] [place] [address], [facility] MAGNESIUM BLOODon 04-02-2020 Magnesium [Mass/Vol] 2.0 mg/dL Normal 1.9-2.[address] [facility] Comment on above: Order Comment: No: D o not add to previous draw Performed By: #### 1 0070, 57369, 52840, 74487, 29157, 54428 #### [facility] [address] [place] [address], [facility] PHOSPHORUS BLOODon 0 Phosphate [Mass/Vol] 3.1 mg/dL Normal 2.5-5.[address] [facility] Comment on above: Order Comment: No: D o not add to previous draw Performed By: #### 1 0070, 93089, 51597, 02498, 93352, 29966 #### [facility] [address] [place] [address], [facility] POC GLUCOSE LABon 04-02-2020 Glucose [Mass/Vol] 134 mg/dL High 70-[address] [facility] Comment on above: Performed By: #### 1 0070, 91351, 70436, 98542, 19832, 25420 #### [facility] [address] [place] [address], [facility] UFH HEPARIN ASSAYon 04-02-20 20 UNFRACTIONATED HEPARIN 0.91 IU/mL Critically high 0.30-0.[address] [facility] Comment on above: Result Comment: Violet roxaban and Apixaban will interfere with the anti Xa assay used to monitor UFH and LMWH. RESULTS CHECKED AND CALLED. ACCURATELY READ BACK BY LYNN POLANCO RN @ [phone] Performed By: #### 1 0070, 11730, 37392, 24849, 35461, 00561 #### [facility] [address] [place] [address], [facility] ALBUMIN BLOODon 04-01-2020 Albumin [Mass/Vol] 3.0 g/dL Low 3.5-5.[address] [facility] Comment on above: Performed By: #### 1 0070, 46355, 13618, 63597, 16728, 22076 #### [facility] [address] [place] [address], [facility] BASIC METABOLIC PANELon 07-0 Calcium [Mass/Vol] 8.1 mg/dL Low 8.6-10.[address] [facility] Comment on above: Order Comment: No: D o not add to previous draw Performed By: #### 1 0070, 41892, 92451, 21471, 54677, 64209 #### [facility] [address] [place] [address], [facility] Chloride [Moles/Vol] 105 mmol/L Normal 98-[address] [facility] Comment on above: Order Comment: No: D o not add to previous draw Performed By: #### 1 0070, 52735, 34911, 99017, 10306, 11717 #### [facility] [address] [place] [address], [place] CO2 [Moles/Vol] 26 mmol/L Normal 21-[address] [facility] Comment on above: Order Comment: No: D o not add to previous draw Performed By: #### 1 0070, 37364, 89098, 72991, 53639, 62416 #### [facility] [address] [place] [address], [place] Creatinine [Mass/Vol] 0.65 mg/dL Normal 0.60-1.[address] [facility] Comment on above: Order Comment: No: D o not add to previous draw Performed By: #### 1 0070, 02649, 21352, 79635, 24809, 94385 #### [facility] [address] [place] [address], [place] GFR/1.73 sq M predicted among blacks MDRD (S/P/Bld) [Vol rate/Area] mL/min/{1.73_m2} Normal >[address] [facility] Comment on above: Order Comment: No: D o not add to previous draw Performed By: #### 1 0070, 60503, 11195, 58665, 02544, 41719 #### [facility] [address] [place] [address], [place] GFR/1.73 sq M predicted among non-blacks MDRD (S/P/Bld) [Vol rate/Area] mL/min/{1.73_m2} Normal >[address] [facility] Comment on above: Order Comment: No: D o not add to previous draw Performed By: #### 1 0070, 59240, 53189, 99825, 53834, 83220 #### [facility] [address] [place] [address], [place] Glucose [Mass/Vol] 87 mg/dL Normal 70-[address] [facility] Comment on above: Order Comment: No: D o not add to previous draw Performed By: #### 1 0070, 45648, 25676, 60070, 18843, 71638 #### [facility] [address] [place] [address], [place] Potassium [Moles/Vol] 4.3 mmol/L Normal 3.5-5.[address] [facility] Comment on above: Order Comment: No: D o not add to previous draw Performed By: #### 1 0070, 43658, 97529, 37546, 98555, 18973 #### [facility] [address] [place] [address], [place] Sodium [Moles/Vol] 136 mmol/L Normal 136-[address] [facility] Comment on above: Order Comment: No: D o not add to previous draw Performed By: #### 1 0070, 92224, 87159, 79455, 66689, 74522 #### [facility] [address] [place] [address], [place] Urea nitrogen [Mass/Vol] 8 mg/dL Normal 7-[address] [facility] Comment on above: Order Comment: No: D o not add to previous draw Performed By: #### 1 0070, 09296, 25039, 31464, 40126, 60804 #### [facility] [address] CBC W/DIFFon 04-01-2020 ABS BASOPHILS 0.0 10*3/uL Normal 0.0-0.[address] [facility] Comment on above: Order Comment: No: D o not add to previous draw Performed By: #### 1 0070, 27906, 62584, 70239, 13744, 12475 #### [facility] [address] ABS IMM GRANS 0.0 10*3/uL Normal 0.0-0.[address] [facility] Comment on above: Order Comment: No: D o not add to previous draw Performed By: #### 1 0070, 44000, 40331, 44038, 02687, 63173 #### [facility] [address] ABS NEUTROPHILS 3.4 10*3/uL Normal 1.6-7.[address] [facility] Comment on above: Order Comment: No: D o not add to previous draw Performed By: #### 1 0070, 68545, 72261, 49618, 20810, 14413 #### [facility] [address] [facility]. [address] Basophils/100 WBC (Bld) 0.2 % Normal 0.0-1.[address] [facility] Comment on above: Order Comment: No: D o not add to previous draw Performed By: #### 1 0070, 22160, 64691, 51133, 31243, 67403 #### [facility] [address] [place] [address], [facility] Eosinophils (Bld) [#/Vol] 0.1 10*3/uL Normal 0.0-0.[address] [facility] Comment on above: Order Comment: No: D o not add to previous draw Performed By: #### 1 0070, 30688, 19053, 11897, 66955, 61411 #### [facility] [address] [place] [address], [facility] Eosinophils/100 WBC (Bld) 2.6 % Normal 0.0-6.[address] [facility] Comment on above: Order Comment: No: D o not add to previous draw Performed By: #### 1 0070, 54810, 72924, 98542, 40507, 71940 #### [facility] [address] [place] [address], [facility] Erythrocyte distribution width (RBC) [Ratio] 13.0 % Normal 11.5-15.[address] [facility] Comment on above: Order Comment: No: D o not add to previous draw Performed By: #### 1 0070, 77576, 02293, 31158, 71634, 08065 #### [facility] [address] [place] [address], [facility] Hematocrit (Bld) [Volume fraction] 40.9 % Normal 36.0-45.[address] [facility] Comment on above: Order Comment: No: D o not add to previous draw Performed By: #### 1 0070, 91771, 17455, 88235, 61314, 17804 #### [facility] [address] [place] [address], [facility] Hemoglobin (Bld) [Mass/Vol] 12.8 g/dL Normal 12.0-15.[address] [facility] Comment on above: Order Comment: No: D o not add to previous draw Performed By: #### 1 0070, 85195, 01799, 32275, 70462, 99349 #### [facility] [address] [place] [address], [facility] IMMATURE GRANS 0.6 % Normal 0.0-1.[address] [facility] Comment on above: Order Comment: No: D o not add to previous draw Performed By: #### 1 0070, 10175, 47355, 82014, 46320, 10337 #### [facility] [address] [facility] [place] [address], [facility] Lymphocytes (Bld) [#/Vol] 1.2 10*3/uL Normal 1.2-4.[address] [facility] Comment on above: Order Comment: No: D o not add to previous draw Performed By: #### 1 0070, 03841, 18783, 39941, 18222, 00745 #### [facility] [address] [facility] [place] [address], [facility] Lymphocytes/100 WBC (Bld) 23.7 % Normal 20.0-45.[address] [facility] Comment on above: Order Comment: No: D o not add to previous draw Performed By: #### 1 0070, 74636, 20137, 84827, 26437, 23724 #### [facility] [address] [facility] [place] [address], [facility] MCH (RBC) [Entitic mass] 27.4 pg Normal 27.0-33.[address] [facility] Comment on above: Order Comment: No: D o not add to previous draw Performed By: #### 1 0070, 37279, 12105, 66041, 18391, 95256 #### [facility] [address] [facility] [place] [address], [facility] MCHC (RBC) [Mass/Vol] 31.3 g/dL Low 32.0-35.[address] [facility] Comment on above: Order Comment: No: D o not add to previous draw Performed By: #### 1 0070, 84551, 11678, 09621, 78326, 45709 #### [facility] [address] [facility] [place] [address], [facility] MCV (RBC) [Entitic vol] 87.6 fL Normal 82.0-98.[address] [facility] Comment on above: Order Comment: No: D o not add to previous draw Performed By: #### 1 0070, 44563, 93086, 79787, 63194, 15286 #### [facility] [address] [facility] [place] [address], [facility] Monocytes (Bld) [#/Vol] 0.3 10*3/uL Normal 0.1-1.[address] [facility] Comment on above: Order Comment: No: D o not add to previous draw Performed By: #### 1 0070, 92083, 88921, 77502, 31700, 08322 #### [facility] [address] MONOS 5.4 % Normal 5.0-12.[address] [facility] Comment on above: Order Comment: No: D o not add to previous draw Performed By: #### 1 0070, 31231, 56831, 89679, 73781, 52645 #### [facility] [address] Neutrophils/100 WBC (Bld) 67.5 % Normal 40.0-72.[address] [facility] Comment on above: Order Comment: No: D o not add to previous draw Performed By: #### 1 0070, 17247, 39270, 51963, 88580, 12115 #### [facility] [address] Nucleated RBC/100 WBC (Bld) [Ratio] 0 % Normal 0-[address] [facility] Comment on above: Order Comment: No: D o not add to previous draw Performed By: #### 1 0070, 19847, 34121, 06333, 62472, 13065 #### [facility] [address] [place] [address], [facility] PLAT CNT 237 10*3/uL Normal 150-[address] [facility] Comment on above: Order Comment: No: D o not add to previous draw Performed By: #### 1 0070, 69711, 58321, 52218, 44767, 38976 #### [facility] [address] [facility] [place] [address], [facility] RBC (Bld) [#/Vol] 4.67 10*6/uL Normal 3.80-5.[address] [facility] Comment on above: Order Comment: No: D o not add to previous draw Performed By: #### 1 0070, 67373, 47275, 05820, 27817, 51104 #### [facility] [address] [facility] [place] [address], [facility] WBC (Bld) [#/Vol] 4.98 10*3/uL Normal 4.00-10.[address] [facility] Comment on above: Order Comment: No: D o not add to previous draw Performed By: #### 1 0070, 97957, 59230, 97985, 94316, 71119 #### [facility] [address] [place], [place] [id number] [place] [address] CHEST AND LATERALon 04-01-[address] [facility] Department of Radiology [address] [place] [id number] Patient Name: EMIGDIO APODACA : 1965 Sex: F Age: Race: White Pt. Location: [id number] Patient Status: I Ordered Date: 04/01/2020 7:00:00 [...] reports Electronically signed: Shari Salcedo. Transcribed by: [email or web address], User Resident: ANNE VEGA Electronically Signed by: SHARI SALCEDO @ 04/01/2020 10:12 AM I personally read this/these film(s) with this resident Normal [facility] Comment on above: Order Comment: No: D o not add to previous draw MAGNESIUM BLOODon 04-01-2020 Magnesium [Mass/Vol] 2.1 mg/dL Normal 1.9-2.[address] [facility] Comment on above: Order Comment: No: D o not add to previous draw Performed By: #### 1 0070, 23618, 46877, 91033, 83634, 00804 #### [facility] [address] [facility] [place] [address], [facility] APTTon 03-31-2020 aPTT Coag (Bld) [Time] 28.3 s Normal 25.0-35.[address] [facility] Comment on above: [...] THIS PURPOSE. Performed By: #### 1 0070, 85915, 04308, 57067, 28308, 00713 #### [facility] [address] [place] [address], [facility] BASIC METABOLIC PANELon 06-3 0-2020 Calcium [Mass/Vol] 7.8 mg/dL Low 8.6-10.[address] [facility] Comment on above: Order Comment: No: D o not add to previous draw Performed By: #### 1 0070, 73978, 96717, 76042, 80926, 12595 #### [facility] [address] [place] [address], [facility] Chloride [Moles/Vol] 108 mmol/L High 98-[address] [facility] Comment on above: Order Comment: No: D o not add to previous draw Performed By: #### 1 0070, 87454, 11501, 49474, 26123, 25001 #### [facility] [address] [place] [address], [facility] CO2 [Moles/Vol] 26 mmol/L Normal 21-[address] [facility] Comment on above: Order Comment: No: D o not add to previous draw Performed By: #### 1 0070, 10948, 25471, 02718, 88261, 85217 #### [facility] [address] [place] [address], [facility] Creatinine [Mass/Vol] 0.76 mg/dL Normal 0.60-1.[address] [facility] Comment on above: Order Comment: No: D o not add to previous draw Performed By: #### 1 0070, 21871, 92189, 43041, 63860, 28894 #### [facility] [address] [place] [address], [place] GFR/1.73 sq M predicted among blacks MDRD (S/P/Bld) [Vol rate/Area] mL/min/{1.73_m2} Normal >[address] [facility] Comment on above: Order Comment: No: D o not add to previous draw Performed By: #### 1 0070, 41598, 01513, 54007, 34577, 90861 #### [facility] [address] [place] [address], [place] GFR/1.73 sq M predicted among non-blacks MDRD (S/P/Bld) [Vol rate/Area] mL/min/{1.73_m2} Normal >[address] [facility] Comment on above: Order Comment: No: D o not add to previous draw Performed By: #### 1 0070, 82770, 95240, 75958, 38305, 20782 #### [facility] [address] [place] [address], [place] Glucose [Mass/Vol] 97 mg/dL Normal 70-[address] [facility] Comment on above: Order Comment: No: D o not add to previous draw Performed By: #### 1 0070, 06186, 57548, 67536, 26048, 29910 #### [facility] [address] [place] [address], [place] Potassium [Moles/Vol] 3.2 mmol/L Low 3.5-5.[address] [facility] Comment on above: Order Comment: No: D o not add to previous draw Performed By: #### 1 0070, 60863, 81481, 25497, 56706, 27147 #### [facility] [address] [place] [address], [place] Sodium [Moles/Vol] 140 mmol/L Normal 136-[address] [facility] Comment on above: Order Comment: No: D o not add to previous draw Performed By: #### 1 0070, 70096, 29797, 22098, 82540, 92396 #### [facility] [address] Urea nitrogen [Mass/Vol] 15 mg/dL Normal 7-[address] [facility] Comment on above: Order Comment: No: D o not add to previous draw Performed By: #### 1 0070, 50075, 81174, 91545, 96668, 43879 #### [facility] [address] CBC W/DIFFon 03-31-2020 ABS BASOPHILS 0.0 10*3/uL Normal 0.0-0.[address] [facility] Comment on above: Order Comment: No: D o not add to previous draw Performed By: #### 1 0070, 89491, 51741, 14706, 17518, 75977 #### [facility] [address] ABS IMM GRANS 0.0 10*3/uL Normal 0.0-0.[address] [facility] Comment on above: Order Comment: No: D o not add to previous draw Performed By: #### 1 0070, 56474, 68099, 50454, 85082, 89417 #### [facility] [address] ABS NEUTROPHILS 3.2 10*3/uL Normal 1.6-7.[address] [facility] Comment on above: Order Comment: No: D o not add to previous draw Performed By: #### 1 0070, 89503, 85802, 03201, 11444, 56068 #### [facility] [address] Basophils/100 WBC (Bld) 0.2 % Normal 0.0-1.[address] [facility] Comment on above: Order Comment: No: D o not add to previous draw Performed By: #### 1 0070, 20191, 41449, 13111, 43078, 33755 #### [facility] [address] [place] [address], [facility] Eosinophils (Bld) [#/Vol] 0.0 10*3/uL Normal 0.0-0.[address] [facility] Comment on above: Order Comment: No: D o not add to previous draw Performed By: #### 1 0070, 36068, 44025, 40639, 45075, 20069 #### [facility] [address] [place] [address], [facility] Eosinophils/100 WBC (Bld) 0.4 % Normal 0.0-6.[address] [facility] Comment on above: Order Comment: No: D o not add to previous draw Performed By: #### 1 0070, 85490, 37728, 42621, 14970, 86782 #### [facility] [address] [facility] Erythrocyte distribution width (RBC) [Ratio] 13.0 % Normal 11.5-15.[address] [facility] Comment on above: Order Comment: No: D o not add to previous draw Performed By: #### 1 0070, 45494, 57309, 75036, 61371, 87921 #### [facility] [address] [facility] Hematocrit (Bld) [Volume fraction] 34.4 % Low 36.0-45.[address] [facility] Comment on above: Order Comment: No: D o not add to previous draw Performed By: #### 1 0070, 96021, 79587, 80941, 40658, 42236 #### [facility] [address] [place] [address], [facility] Hemoglobin (Bld) [Mass/Vol] 10.8 g/dL Low 12.0-15.[address] [facility] Comment on above: Order Comment: No: D o not add to previous draw Performed By: #### 1 0070, 92361, 56960, 28917, 61894, 91966 #### [facility] [address] [place] [address], [facility] IMMATURE GRANS 0.4 % Normal 0.0-1.[address] [facility] Comment on above: Order Comment: No: D o not add to previous draw Performed By: #### 1 0070, 91568, 27638, 04271, 61775, 59280 #### [facility] [address] [place] [address], [facility] Lymphocytes (Bld) [#/Vol] 1.2 10*3/uL Normal 1.2-4.[address] [facility] Comment on above: Order Comment: No: D o not add to previous draw Performed By: #### 1 0070, 84604, 99604, 81771, 08437, 98500 #### [facility] [address] [place] [address], [facility] Lymphocytes/100 WBC (Bld) 25.7 % Normal 20.0-45.[address] [facility] Comment on above: Order Comment: No: D o not add to previous draw Performed By: #### 1 0070, 59124, 66579, 87709, 31883, 26029 #### [facility] [address] [place] [address], [facility] MCH (RBC) [Entitic mass] 27.5 pg Normal 27.0-33.[address] [facility] Comment on above: Order Comment: No: D o not add to previous draw Performed By: #### 1 0070, 35213, 60591, 04858, 68255, 62324 #### [facility] [address] [place] [address], [facility] MCHC (RBC) [Mass/Vol] 31.4 g/dL Low 32.0-35.[address] [facility] Comment on above: Order Comment: No: D o not add to previous draw Performed By: #### 1 0070, 46319, 39766, 87006, 38180, 11283 #### [facility] [address] [place] [address], [facility] MCV (RBC) [Entitic vol] 87.5 fL Normal 82.0-98.[address] [facility] Comment on above: Order Comment: No: D o not add to previous draw Performed By: #### 1 0070, 42991, 45544, 51213, 01631, 72905 #### [facility] [address] [facility] [place] [address], [facility] Monocytes (Bld) [#/Vol] 0.3 10*3/uL Normal 0.1-1.[address] [facility] Comment on above: Order Comment: No: D o not add to previous draw Performed By: #### 1 0070, 20904, 01975, 72505, 95870, 52332 #### [facility] [address] [place] [address], [facility] MONOS 6.2 % Normal 5.0-12.[address] [facility] Comment on above: Order Comment: No: D o not add to previous draw Performed By: #### 1 0070, 19863, 85638, 54867, 39629, 88878 #### [facility] [address] [facility] [place] [address], [facility] Neutrophils/100 WBC (Bld) 67.1 % Normal 40.0-72.[address] [facility] Comment on above: Order Comment: No: D o not add to previous draw Performed By: #### 1 0070, 08331, 16652, 05228, 83134, 60944 #### [facility] [address] [facility] [place] [address], [facility] Nucleated RBC/100 WBC (Bld) [Ratio] 0 % Normal 0-[address] [facility] Comment on above: Order Comment: No: D o not add to previous draw Performed By: #### 1 0070, 93438, 23677, 72073, 75454, 35464 #### [facility] [address] [facility] [place] [address], [facility] PLAT CNT 210 10*3/uL Normal 150-[address] [facility] Comment on above: Order Comment: No: D o not add to previous draw Performed By: #### 1 0070, 43518, 56903, 50773, 73389, 37074 #### [facility] [address] [place] [address], [facility] RBC (Bld) [#/Vol] 3.93 10*6/uL Normal 3.80-5.[address] [facility] Comment on above: Order Comment: No: D o not add to previous draw Performed By: #### 1 0070, 10428, 73733, 97115, 25250, 67736 #### [facility] [address] [facility] [place] [address], [facility] WBC (Bld) [#/Vol] 4.71 10*3/uL Normal 4.00-10.[address] [facility] Comment on above: Order Comment: No: D o not add to previous draw Performed By: #### 1 0070, 11292, 99574, 05719, 35426, 08203 #### [facility] [address] [facility]. [address] Cardiovascular Lab Reporton 03-31-2020 Cardiovascular Lab Report [facility] Patient Name: [facility] S MR #: [id number] Department of Physician: Rebecca Weaver M.D. Medicine Service Date: 03/31/2020 Division of Birthdate: 1965 Cardiology Room #: [id number] Adult Cardiovascular Services [place] [address] Cardiovascular Laboratory Report INDICATIONS FOR PACEMAKER PLACEMENT: [...] Weaver M.D. Date Trans: 03/31/2020 03:35 P/mmo [id number] cc: Luis Armando Hines M.D. Heart Failure/ Transplant Mailstop [address] [place] [address] [facility] MAGNESIUM BLOODon 03-31-2020 Magnesium [Mass/Vol] 1.8 mg/dL Low 1.9-2.[address] [facility] Comment on above: Order Comment: No: D o not add to previous draw Performed By: #### 1 0070, [id number], 49179, 88373, 06418, 96665 #### [facility] [address] PHOSPHORUS BLOODon 0 Phosphate [Mass/Vol] 2.7 mg/dL Normal 2.5-5.[address] [facility] Comment on above: Order Comment: No: D o not add to previous draw Performed By: #### 1 0070, 66652, 12881, 75207, 34597, 70965 #### [facility] [address] PROTHROMBIN TIMEon 0 INR Coag (PPP) [Relative time] 1.11 {INR} Normal 0.91-1.[address] [facility] [facility] Comment on above: [...] CHEST 1995;108:231S-246S. Performed By: #### 1 0070, 01457, 46454, 33142, 03898, 38354 #### [facility] [address] [place] [address], [facility] PT Coag (PPP) [Time] 14.3 s Normal 12.3-14.[address] [facility] Comment on above: Order Comment: No: D o not add to previous draw Result Comment: ALL RESULTS MUST BE INTERPRETED WITH RESPECT TO BLOOD DRAWING ARTIFACT OR DILUTION ERROR OF ANTICOAGULANT AT THE TIME OF SAMPLING. Performed By: #### 1 0070, 47053, 26480, 17521, 25635, 83782 #### [facility] [address] [facility] [address] *SARS-CoV-2 COVID-19on 03-30 [id number] Not Detected Normal Not Detected [facility] Comment on above: Order Comment: No: D o not add to previous draw Performed By: #### 1 0070, 13903, 71314, 30930, 50938, 70093 #### [facility] [address] [place] [address], [facility] APTTon 03-30-2020 aPTT Coag (Bld) [Time] 24.9 s Low 25.0-35.[address] [facility] Comment on above: [...] THIS PURPOSE. Performed By: #### 5 7307, 14511 #### [facility] [address] [place] [address], [facility] BASIC METABOLIC PANELon 03-03 Calcium [Mass/Vol] 8.9 mg/dL Normal 8.6-10.[address] [facility] Comment on above: Order Comment: No: D o not add to previous draw Performed By: #### 1 0070, 40146, 87913, 04142, 83167, 58962 #### [facility] [address] [place] [address], [facility] Chloride [Moles/Vol] 110 mmol/L High 98-[address] [facility] Comment on above: Order Comment: No: D o not add to previous draw Performed By: #### 1 0070, 12105, 07881, 50021, 81808, 51369 #### [facility] [address] [place] [address], [facility] CO2 [Moles/Vol] 26 mmol/L Normal 21-[address] [facility] Comment on above: Order Comment: No: D o not add to previous draw Performed By: #### 1 0070, 65700, 90277, 62460, 21052, 74538 #### [facility] [address] [place] [address], [facility] Creatinine [Mass/Vol] 0.86 mg/dL Normal 0.60-1.[address] [facility] Comment on above: Order Comment: No: D o not add to previous draw Performed By: #### 1 0070, 09816, 42854, 95667, 61414, 59096 #### [facility] [address] [place] [address], [facility] GFR/1.73 sq M predicted among blacks MDRD (S/P/Bld) [Vol rate/Area] mL/min/{1.73_m2} Normal >[address] [facility] Comment on above: Order Comment: No: D o not add to previous draw Performed By: #### 1 0070, 06093, 92773, 66141, 14550, 82229 #### [facility] [address] [place] [address], [place] GFR/1.73 sq M predicted among non-blacks MDRD (S/P/Bld) [Vol rate/Area] mL/min/{1.73_m2} Normal >[address] [facility] Comment on above: Order Comment: No: D o not add to previous draw Performed By: #### 1 0070, 00943, 44208, 60264, 36606, 32562 #### [facility] [address] [place] [address], [place] Glucose [Mass/Vol] 119 mg/dL High 70-[address] [facility] Comment on above: Order Comment: No: D o not add to previous draw Performed By: #### 1 0070, 99595, 38129, 11114, 73478, 74333 #### [facility] [address] [place] [address], [place] Potassium [Moles/Vol] 3.5 mmol/L Normal 3.5-5.[address] [facility] Comment on above: Order Comment: No: D o not add to previous draw Performed By: #### 1 0070, 26937, 57988, 34434, 39111, 87249 #### [facility] [address] [place] [address], [place] Sodium [Moles/Vol] 142 mmol/L Normal 136-[address] [facility] Comment on above: Order Comment: No: D o not add to previous draw Performed By: #### 1 0070, 68016, 27429, 54667, 19407, 66269 #### [facility] [address] [place] [address], [place] Urea nitrogen [Mass/Vol] 13 mg/dL Normal 7-[address] [facility] Comment on above: Order Comment: No: D o not add to previous draw Performed By: #### 1 0070, 72518, 32299, 34205, 77316, 60066 #### [facility] [address] CBC W/DIFFon 03-30-2020 ABS BASOPHILS 0.0 10*3/uL Normal 0.0-0.[address] [facility] Comment on above: Performed By: #### 5 0103 #### [facility] [address] [place] [address], [facility] ABS IMM GRANS 0.0 10*3/uL Normal 0.0-0.[address] [facility] Comment on above: Performed By: #### 5 0103 #### [facility] [address] ABS NEUTROPHILS 5.7 10*3/uL Normal 1.6-7.[address] [facility] Comment on above: Performed By: #### 5 0103 #### [facility] [address] Basophils/100 WBC (Bld) 0.0 % Normal 0.0-1.[address] [facility] Comment on above: Performed By: #### 5 0103 #### [facility] [address] [facility] [place] [address], [facility] Eosinophils (Bld) [#/Vol] 0.0 10*3/uL Normal 0.0-0.[address] [facility] Comment on above: Performed By: #### 5 0103 #### [facility] [address] [place] [address], [facility] Eosinophils/100 WBC (Bld) 0.0 % Normal 0.0-6.[address] [facility] Comment on above: Performed By: #### 5 0103 #### [facility] [address] [place] [address], [facility] Erythrocyte distribution width (RBC) [Ratio] 12.9 % Normal 11.5-15.[address] [facility] Comment on above: Performed By: #### 5 0103 #### [facility] [address] [facility] [place] [address], [facility] Hematocrit (Bld) [Volume fraction] 36.1 % Normal 36.0-45.[address] [facility] Comment on above: Performed By: #### 5 0103 #### [facility] [address] [facility]. [address] Hemoglobin (Bld) [Mass/Vol] 11.5 g/dL Low 12.0-15.[address] [facility] Comment on above: Performed By: #### 5 0103 #### [facility] [address] IMMATURE GRANS 0.5 % Normal 0.0-1.[address] [facility] Comment on above: Performed By: #### 5 0103 #### [facility] [address] [place] [address], [facility] Lymphocytes (Bld) [#/Vol] 0.6 10*3/uL Low 1.2-4.[address] [facility] Comment on above: Performed By: #### 5 3 #### [facility] [address] [place] [address], [facility] Lymphocytes/100 WBC (Bld) 9.3 % Low 20.0-45.[address] [facility] Comment on above: Performed By: #### 5 3 #### [facility] [address] [place] [address], [facility] MCH (RBC) [Entitic mass] 27.4 pg Normal 27.0-33.[address] [facility] Comment on above: Performed By: #### 5 3 #### [facility] [address] [facility] [place] [address], [facility] MCHC (RBC) [Mass/Vol] 31.9 g/dL Low 32.0-35.[address] [facility] Comment on above: Performed By: #### 5 0103 #### [facility] [address] [facility] [place] [address], [facility] MCV (RBC) [Entitic vol] 86.0 fL Normal 82.0-98.[address] [facility] Comment on above: Performed By: #### 5 0103 #### [facility] [address] [place] [address], [facility] Monocytes (Bld) [#/Vol] 0.2 10*3/uL Normal 0.1-1.[address] [facility] Comment on above: Performed By: #### 5 3 #### [facility] [address] [place] [address], [facility] MONOS 2.5 % Low 5.0-12.[address] [facility] Comment on above: Performed By: #### 5 3 #### [facility] [address] [place] [address], [facility] Neutrophils/100 WBC (Bld) 87.7 % High 40.0-72.[address] [facility] Comment on above: Performed By: #### 5 3 #### [facility] [address] [place] [address], [facility] Nucleated RBC/100 WBC (Bld) [Ratio] 0 % Normal 0-[address] [facility] Comment on above: Performed By: #### 5 3 #### [facility] [address] [facility] [place] [address], [facility] PLAT CNT 261 10*3/uL Normal 150-[address] [facility] Comment on above: Performed By: #### 5 3 #### [facility] [address] [facility] [place] [address], [facility] RBC (Bld) [#/Vol] 4.20 10*6/uL Normal 3.80-5.[address] [facility] Comment on above: Performed By: #### 5 0103 #### [facility] [address] [facility]. [address] WBC (Bld) [#/Vol] 6.47 10*3/uL Normal 4.00-10.[address] [facility] Comment on above: Performed By: #### 5 0103 #### [facility] [address] [facility] [address] FREE T4on 03-30-2020 Free T4 [Mass/Vol] 1.48 ng/dL Normal 0.71-1.[address] [facility] Comment on above: Performed By: #### 1 0070, 01910, 64374, 40533, 47653, 52043 #### [facility] [address] [facility] [address] MAGNESIUM BLOODon 03-30-2020 Magnesium [Mass/Vol] 2.0 mg/dL Normal 1.9-2.[address] [facility] Comment on above: Order Comment: No: D o not add to previous draw Performed By: #### 1 0070, 38045, 35613, 52846, 20936, 00380 #### [facility] [address] [facility]. [address] PHOSPHORUS BLOODon 0 Phosphate [Mass/Vol] 2.8 mg/dL Normal 2.5-5.[address] [facility] Comment on above: Order Comment: No: D o not add to previous draw Performed By: #### 1 0070, 29694, 86972, 33411, 30761, 04481 #### [facility] [address] PROTHROMBIN TIMEon 0 INR Coag (PPP) [Relative time] 1.21 {INR} High 0.91-1.[address] [facility] Comment on above: [...] CHEST 1995;108:231S-246S. Performed By: #### 5 7307, 34204 #### [facility] [address] [facility] [address] PT Coag (PPP) [Time] 15.4 s High 12.3-14.8 [facility] Comment on above: Order Comment: No: D o not add to previous draw Result Comment: ALL RESULTS MUST BE INTERPRETED WITH RESPECT TO BLOOD DRAWING ARTIFACT OR DILUTION ERROR OF ANTICOAGULANT AT THE TIME OF SAMPLING. Performed By: #### 5 7307, 95238 #### [facility] [address] TROPONIN-Ion 03-30-2020 Troponin I.cardiac [Mass/Vol] 0.02 ng/mL Normal 0.00-0.[address] [facility] Comment on above: Order Comment: No: D o not add to previous draw Result Comment: REFE RENCE RANGES: 0.00 - 0.04 ng/ml NORMAL 0.05 - 0.50 ng/ml INDETERMINATE > 0.50 ng/ml CONSISTENT WITH AN M.I. Performed By: #### 1 0070, 17236, 10463, 22373, 07714, 40626 #### [facility] [address] [facility]. [address] Troponin I.cardiac [Mass/Vol] 0.04 ng/mL Normal 0.00-0.[address] [facility] Comment on above: Order Comment: No: D o not add to previous draw Result Comment: REFE RENCE RANGES: 0.00 - 0.04 ng/ml NORMAL 0.05 - 0.50 ng/ml INDETERMINATE > 0.50 ng/ml CONSISTENT WITH AN M.I. Performed By: #### 3 5200 #### [facility] [address] Troponin I.cardiac [Mass/Vol] 0.04 ng/mL Normal 0.00-0.[address] [facility] Comment on above: Order Comment: No: D o not add to previous draw Result Comment: REFE RENCE RANGES: 0.00 - 0.04 ng/ml NORMAL 0.05 - 0.50 ng/ml INDETERMINATE > 0.50 ng/ml CONSISTENT WITH AN M.I. Performed By: #### 1 0070, 13452, 46260, 37629, 81376, 54960 #### [facility] [address] TSH3 WITH REFLEX FT4on 03-30 TSH 3RD GENERATION 0.02 uIU/mL Low 0.34-5.[address] [facility] Comment on above: Performed By: #### 1 0070, 40692, 34161, 70379, 97271, 20762 #### [facility] [address] Vital Signs Date Time Vital Sign Value Performing Clinician Facility 02-17-2025 13:40-0400 Body height 152.4 cm Naseem Carter NP Work Phone: [facility] 02-17-2025 13:40-040 Body mass index (BMI) [Ratio] 20.31 kg/m2 Naseem Carter NP Work Phone: [facility] 02-17-2025 13:40-040 Body weight 47.17 kg Naseem Carter LABOR RELATIONS OR PERSONNEL NEGOTIATOR Work Phone: [facility] 12-04-2024 07:30-0500 Body temperature 97.8 [degF] Tony Amaya MD Work Phone: [facility] 12-04-2024 07:30-0500 Diastolic blood pressure 77 mm[Hg] Tony Amaya MD Work Phone: [facility] 12-04-2024 07:30-0500 Heart rate 88 /min Tony Amaya MD Work Phone: [facility] 12-04-2024 07:30-0500 Respiratory rate 18 /min Tony Amaya MD Work Phone: [facility] 12-04-2024 07:30-0500 SaO2% (BldA) [Mass fraction] 97 % Tony Amaya MD Work Phone: [facility] 12-04-2024 07:30-0500 Systolic blood pressure 120 mm[Hg] Tony Amaya MD Work Phone: [facility] 12-02-2024 14:18-0500 Body height 152.4 cm Tony Amaya MD Work Phone: [facility] 12-02-2024 08:53-0500 Body weight 44.62 kg Tony Amaya MD Work Phone: [facility] 06-13-2024 12:13-0400 Body height 152.3 cm Zoila Monae MD Work Phone: [facility] 06-13-2024 12:13-0400 Body mass index (BMI) [Ratio] 19.98 kg/m2 Zoila Monae MD Work Phone: [facility] 06-13-2024 12:13-0400 Body weight 46.35 kg Zoila Monae MD Work Phone: [facility] 06-13-2024 12:13-0400 Diastolic blood pressure 77 mm[Hg] Zoila Monae MD Work Phone: [facility] 06-13-2024 12:13-0400 Heart rate 74 /min Zoila Monae MD Work Phone: [facility] 06-13-2024 12:13-0400 Systolic blood pressure 107 mm[Hg] Zoila Monae MD Work Phone: [facility] 03-06-2024 13:46-0400 Body height 153.5 cm Zoila Monae MD Work Phone: [facility] 03-06-2024 13:46-0400 Body mass index (BMI) [Ratio] 19.1 kg/m2 Zoila Monae MD Work Phone: [facility] 03-06-2024 13:46-0400 Body temperature 97.2 [degF] Zoila Monae MD Work Phone: [facility] 03-06-2024 13:46-0400 Body weight 45 kg Zoila Monae MD Work Phone: [facility] 03-06-2024 13:46-0400 Diastolic blood pressure 68 mm[Hg] Zoila Monae MD Work Phone: [facility] 03-06-2024 13:46-0400 Heart rate 106 /min Zoila Monae MD Work Phone: [facility] 03-06-2024 13:46-0400 Systolic blood pressure 101 mm[Hg] Zoila Monae MD Work Phone: [facility] 08-12-2022 15:32-0500 Body temperature 98.1 [degF] MD Tony Amaya Work Phone: [facility] 08-12-2022 15:32-0500 Diastolic blood pressure 69 mm[Hg] MD Tony Amaya Work Phone: [facility] 08-12-2022 15:32-0500 Heart rate 78 /min MD Tony Amaya Work Phone: [facility] 08-12-2022 15:32-0500 Respiratory rate 16 /min MD Tony Amaya Work Phone: [facility] 08-12-2022 15:32-0500 SaO2% (BldA) [Mass fraction] 94 % MD Tony Amaya Work Phone: [facility] 08-12-2022 15:32-0500 Systolic blood pressure 129 mm[Hg] MD Tony Amaya Work Phone: [facility] 08-12-2022 11:00-0500 Inhaled oxygen flow rate 3 L/min MD Tony Amaya Work Phone: [facility] 08-11-2022 12:39-0500 Body height 152.4 cm MD Tony Amaya Work Phone: [facility] 08-11-2022 06:00-0500 Body weight 44.9 kg MD Tony Amaya Work Phone: [facility] 08-10-2022 15:03-0500 Body mass index (BMI) [Ratio] 19.1 kg/m2 MD Tony Amaya Work Phone: [facility] 08-03-2022 14:27-0400 Body weight 0 kg MD Tony Amaya Work Phone: [facility] Encounters Encounter Date Encounter Type Care Provider Facility Start: 02-17-2025 End: 02-17-2025 Bamboo flowsheet Naseem Carter LABOR RELATIONS OR PERSONNEL NEGOTIATOR Work Phone: [facility] Start: 02-17-2025 End: 02-17-2025 Bamboo flowsheet Naseem Carter LABOR RELATIONS OR PERSONNEL NEGOTIATOR Work Phone: [facility] Start: 02-17-2025 End: 02-17-2025 ambulatory NASEEM CARTER Not Available Start: 02-17-2025 End: 02-17-2025 Patient encounter procedure Naseem Carter LABOR RELATIONS OR PERSONNEL NEGOTIATOR Work Phone: [facility] Comment on above: Preop examination (P rimary Dx) Start: 02-17-2025 End: 02-17-2025 Preprocedural examination done aNseem Carter LABOR RELATIONS OR PERSONNEL NEGOTIATOR Work Phone: [facility] Work Phone: Start: 02-14-2025 ambulatory [facility] Start: 02-10-2025 End: 02-14-2025 Telephone encounter Jr. Luis Armando Alonzo Zahida DO Work Phone: [facility] Start: 01-29-2025 ambulatory [facility] Start: 01-08-2025 End: 01-08-2025 Bamboo flowsheet [...] hand Start: 01-07-2025 ambulatory Tony Amaya Facility: [facility] Start: 12-10-2024 End: 12-10-2024 ambulatory [facility] Start: 12-02-2024 Non-patient / Non-visit Perez Amaya MD Work Phone: [facility] Work Phone: Start: 12-01-2024 End: 12-04-2024 Evaluation and management of inpatient Tony Amaya MD Work Phone: [facility] [place] [address] Work Phone: Start: 12-01-2024 Registered Recurring Tony berry MD Work Phone: [facility] Start: 11-29-2024 End: 11-29-[address] [facility] Start: 11-28-2024 End: 11-28-2024 Patient encounter procedure Monika Woodett DO Work Phone: [facility] Comment on above: Numbness and tinglin g in left hand Start: 11-28-2024 End: 11-28-2024 ambulatory MONIKA VARGAS Not Available Start: 11-26-2024 End: 11-26-2024 ambulatory Tony Amaya MD Work Phone: [facility] Work Phone: Start: 11-26-2024 End: 11-26-2024 Departed Referred Tony Amaya MD Work Phone: [facility] Start: 11-14-2024 Registered Recurring Tony berry MD Work Phone: [facility] Start: 11-11-2024 End: 11-11-2024 Bamboo flowsheet Zulema Mackay LABOR RELATIONS OR PERSONNEL NEGOTIATOR Work Phone: [facility] Start: 11-11-2024 End: 11-11-2024 Bamboo flowsheet Zulema Smith Aplbill LABOR RELATIONS OR PERSONNEL NEGOTIATOR Work Phone: [facility] Start: 11-11-2024 End: 11-11-2024 ambulatory ZULEMA Smith APLBILL Not Available Start: 11-11-2024 End: 11-11-2024 Office outpatient visit 15 minutes Zulema Mackay LABOR RELATIONS OR PERSONNEL NEGOTIATOR Work Phone: [facility] Comment on [...] End: 10-07-2024 Bamboo flowsheet Zulema Smith Apling LABOR RELATIONS OR PERSONNEL NEGOTIATOR Work Phone: [facility] Start: 10-07-2024 End: 10-07-2024 Bamboo flowsheet Zulema Smith Apling LABOR RELATIONS OR PERSONNEL NEGOTIATOR Work Phone: [facility] Start: 10-07-2024 End: 10-07-2024 ambulatory ZULEMA Smith APLING Not Available Start: 10-07-2024 End: 10-07-2024 Office outpatient visit 10 minutes Zulema Mackay LABOR RELATIONS OR PERSONNEL NEGOTIATOR Work Phone: [facility] Comment on above: Closed nondisplaced fracture of base of fifth metacarpal bone of left hand with routine healing, subsequent encounter (Primary Dx); Closed nondisplaced fracture of right patella with routine healing, unspecified fracture morphology, subsequent encounter Start: 09-16-2024 End: 09-16-2024 Bamboo flowsheet Zulema Smith Apling LABOR RELATIONS OR PERSONNEL NEGOTIATOR Work Phone: [facility] Start: 09-16-2024 End: 09-16-2024 Bamboo flowsheet Zulema Smith Apling LABOR RELATIONS OR PERSONNEL NEGOTIATOR Work Phone: [facility] Start: 09-16-2024 End: 09-16-2024 Postop follow up visit related to original px Zulema B Apling LABOR RELATIONS OR PERSONNEL NEGOTIATOR Work Phone: [facility] Comment on above: Closed nondisplaced fracture of base of fifth metacarpal bone of left hand with routine healing, subsequent encounter (Primary Dx); Closed nondisplaced fracture of right patella with routine healing, unspecified fracture morphology, subsequent encounter Start: 09-16-2024 End: 09-16-2024 ambulatory ZULEMA B APLING Not Available Start: 08-19-2024 End: 08-19-2024 Bamboo flowsheet Zulema B Apling LABOR RELATIONS OR PERSONNEL NEGOTIATOR Work Phone: [facility] Start: 08-19-2024 End: 08-19-2024 Bamboo flowsheet Zulema B Apling LABOR RELATIONS OR PERSONNEL NEGOTIATOR Work Phone: [facility] Start: 08-19-2024 End: 08-19-2024 ambulatory ZULEMA B APLING Not Available Start: 08-19-2024 End: 08-19-2024 Postop follow up visit related to original px Zulema B Apling LABOR RELATIONS OR PERSONNEL NEGOTIATOR Work Phone: [facility] Comment on above: Right elbow pain (Pr imary Dx); Closed nondisplaced fracture of base of fifth metacarpal bone of left hand with routine healing, subsequent encounter Start: 08-07-2024 End: 08-07-2024 Bamboo flowsheet Zulema B Apling LABOR RELATIONS OR PERSONNEL NEGOTIATOR Work Phone: [facility] Start: 08-07-2024 End: 08-07-2024 Bamboo flowsheet Zulema B Apling LABOR RELATIONS OR PERSONNEL NEGOTIATOR Work Phone: [facility] Start: 08-07-2024 End: 08-07-2024 Postop follow up visit related to original px Zulema B Apling LABOR RELATIONS OR PERSONNEL NEGOTIATOR Work Phone: [facility] Comment on above: Closed nondisplaced fracture of right patella with routine healing, unspecified fracture morphology, subsequent encounter (Primary Dx); Right elbow pain Start: 08-07-2024 End: 08-07-2024 ambulatory ZULEMA B APLING Not Available Start: 07-22-2024 End: 07-22-2024 Bamboo flowsheet Zulema B Apling LABOR RELATIONS OR PERSONNEL NEGOTIATOR Work Phone: [facility] Start: 07-22-2024 End: 07-22-2024 Bamboo flowsheet Zulema B Apling LABOR RELATIONS OR PERSONNEL NEGOTIATOR Work Phone: [facility] Start: 07-22-2024 End: 07-22-2024 Office outpatient visit 15 minutes Zulema B Apling LABOR RELATIONS OR PERSONNEL NEGOTIATOR Work Phone: [facility] Comment on above: Left hand pain (Prim isamar Dx); Contusion of dorsum of left hand; Closed nondisplaced fracture of base of fifth metacarpal bone of left hand with routine healing, subsequent encounter Start: 07-22-2024 End: 07-22-2024 ambulatory ZULEMA B APLING Not Available Start: 07-10-2024 End: 07-10-2024 Bamboo flowsheet Zulema B Apling LABOR RELATIONS OR PERSONNEL NEGOTIATOR Work Phone: [facility] Start: 07-10-2024 End: 07-10-2024 Bamboo flowsheet Zulema B Apling LABOR RELATIONS OR PERSONNEL NEGOTIATOR Work Phone: [facility] Start: 07-10-2024 End: 07-10-2024 Office outpatient visit 15 minutes Zulema B Apling LABOR RELATIONS OR PERSONNEL NEGOTIATOR Work Phone: [facility] Comment on above: Closed nondisplaced fracture of right patella, unspecified fracture morphology, initial encounter (Primary Dx); Right knee pain, unspecified chronicity Start: 07-10-2024 End: 07-10-2024 ambulatory ZULEMA B APLING Not Available Start: 06-24-2024 End: 06-24-2024 Bamboo flowsheet Zulema B Apling LABOR RELATIONS OR PERSONNEL NEGOTIATOR Work Phone: [facility] Start: 06-24-2024 End: 06-24-2024 Bamboo flowsheet Zulema B Apling LABOR RELATIONS OR PERSONNEL NEGOTIATOR Work Phone: [facility] Start: 06-24-2024 End: 06-24-2024 Office outpatient visit 25 minutes Zulema B Apling LABOR RELATIONS OR PERSONNEL NEGOTIATOR Work Phone: [facility] Comment on above: Left hand pain (Prim isamar Dx); Right knee pain, unspecified chronicity; Contusion of right knee, initial encounter; Contusion of dorsum of left hand; Left shoulder pain, unspecified chronicity; Arthritis of left acromioclavicular joint; Glenohumeral arthritis, left Start: 06-24-2024 End: 06-24-2024 ambulatory ZULEMA MACKAY Not Available Start: 06-13-2024 End: 06-13-2024 ambulatory ZOILA MONAE Facility:[facility] Start: 06-13-2024 End: 06-13-2024 Patient encounter procedure Zoila Monae MD Work Phone: [facility] Comment on above: Transient neurologic al symptoms (Primary Dx) Start: 06-11-2024 ambulatory [facility] Start: 06-11-2024 End: 06-11-2024 Subsequent hospital visit by physician Eeg [facility] Work Phone: [facility] EEG Comment on above: Memory deficit [R41. 3] Start: 06-04-2024 End: 06-04-2024 Orders Only Zoila Monae MD Work Phone: [facility] Comment on above: Memory deficit (Prim isamar Dx); Auditory hallucinations; Mentally challenged Start: 05-28-2024 End: 09-19-2024 Telephone encounter Zoila Monae MD Work Phone: [facility] Start: 05-28-2024 End: 05-28-2024 ambulatory [facility] Start: 03-06-2024 End: 03-06-2024 ambulatory TONY AMAYA Facility:[facility] Start: 03-06-2024 End: 03-06-2024 Patient encounter procedure Zoila Monae MD Work Phone: [facility] Comment on above: Memory deficit (Prim isamar Dx); Auditory hallucinations; Mentally challenged Start: 02-20-2024 Emergency department patient visit REGAN ALDANA [facility] Start: 02-20-2024 End: 02-20-2024 Emergency department patient visit CASSANDRA MARICRUZ [facility] Start: 01-03-2023 End: 01-07-2023 Evaluation and management of inpatient DR TONY AMAYA . Facility:[facility] Start: 11-01-2022 End: 11-02-[address] TONY AMAYA . Facility:[facility] Start: 09-30-2022 End: 10-01-[address] ROSALINA RESENDIZ Facility:[facility] Start: 09-02-2022 End: 09-02-2022 ambulatory MD Tony Amaya Work Phone: [facility] Work Phone: Start: 09-02-2022 End: 09-02-2022 Patient encounter procedure MD Tony Amaya Work Phone: [facility] Start: 08-25-2022 End: 08-25-[address] ROSALINA RESENDIZ Facility:[facility] Start: 08-10-2022 End: 08-12-2022 Admission to same day surgery center MD [facility] Start: 08-10-2022 End: 08-12-2022 ambulatory MD Tony Amaya Work Phone: [facility] Work Phone: Start: 08-08-2022 End: 08-08-2022 ambulatory MD Tony Amaya Work Phone: [facility] Work Phone: Start: 08-08-2022 End: 08-08-2022 Departed Referred MD Tony Amaya Work Phone: [facility] Start: 08-05-2022 End: 08-05-2022 ambulatory MD Tony Amaya Work Phone: [facility] Work Phone: Start: 08-05-2022 End: 08-05-2022 Patient encounter procedure MD Tony Amaya Work Phone: [facility] Start: 07-30-2022 End: 07-30-[address] ROSALINA RESENDIZ Facility:[facility] Start: 07-04-2022 End: 07-06-[address] TONY AMAYA . Facility:[facility] Start: 07-04-2022 End: 07-04-[address] ALBERTO FERRO Facility:[facility] Start: 06-29-2022 Encounter for preprocedural laboratory examination NADEGE GARDNER . [facility] Start: 06-27-2022 End: 06-28-2022 ambulatory [...] Evaluation and management of inpatient EMMY PARIS Facility:[facility] Procedures Date Procedure Procedure Detail Performing Clinician Start: 11-28-2024 End: 11-28-2024 Needle emg ea extremty w/paraspinl area complete Monika Vargas DO Work Phone: Start: 11-26-2024 Urine culture Tony Amaya MD Work Phone: Start: 10-07-2024 Radex hand minimum 3 views Zulema hoffmann LABOR RELATIONS OR PERSONNEL NEGOTIATOR Work Phone: Start: 09-16-2024 Radex hand minimum 3 views Zulema hoffmann LABOR RELATIONS OR PERSONNEL NEGOTIATOR Work Phone: Start: 09-16-2024 Radiologic examination knee 3 views Zulema Mackay LABOR RELATIONS OR PERSONNEL NEGOTIATOR Work Phone: Start: 08-19-2024 Radex hand minimum 3 views Zulema hoffmann LABOR RELATIONS OR PERSONNEL NEGOTIATOR Work Phone: Start: 08-07-2024 End: 08-07-2024 Radex elbow 2 views Zulema Mackay LABOR RELATIONS OR PERSONNEL NEGOTIATOR Work Phone: Start: 07-22-2024 Radex hand minimum 3 views Zulema hoffmann LABOR RELATIONS OR PERSONNEL NEGOTIATOR Work Phone: Start: 06-24-2024 Radiologic examination knee 3 views Zulema Mackay LABOR RELATIONS OR PERSONNEL NEGOTIATOR Work Phone: Start: 06-11-2024 Electroencephalogram w/rec awake&drowsy Zoila Monae MD Work Phone: Start: 06-11-2024 Electroencephalogram w/rec awake&drowsy [facility] Start: 09-02-2022 Plain chest X-ray MD [...] RSV Vaccine (1 - 1-dose 75+ series) [facility] Start: 02-19-2027 Diabetes Screening Diabetes Screening [facility] Start: 03-11-2025 End: 03-11-2025 Patient encounter procedure 03/11/2025 2:00 PM EDT Office Visit [facility] [address] [place] [address] Chuy Jeter PA [address] [facility] [address] [place] [address] [facility] Start: 02-17-2025 End: 02-17-2025 Patient encounter procedure 02/17/2025 1:30 PM EDT Office Visit [facility] [address] [place] [address] Naseem Carter, LABOR RELATIONS OR PERSONNEL NEGOTIATOR [address] [place] [address] [facility] Start: 02-10-2025 End: 02-10-2025 Patient encounter procedure 02/10/2025 11:00 AM EDT Office Visit [facility] [address] [place] [id number] Naseem Carter, LABOR RELATIONS OR PERSONNEL NEGOTIATOR [address] [place] [address] [facility] Start: 12-04-2024 [facility] Start: 12-01-2024 Hospital admission [facility] Start: 12-01-2024 [facility] Start: 11-26-2024 Urine culture [facility] Start: 11-26-2024 Bacteria identified in Urine by Culture Urine Culture [facility] Start: 11-11-2024 End: 11-11-2024 Patient encounter procedure 11/11/2024 10:00 AM EST Office Visit [facility] [address] [place] [address] Zulema Mackay NP [address] [place] [address] [facility] Start: 11-08-2024 End: 11-08-2024 ambulatory 11/08/2024 12:00 PM EST Treatment [facility] [address] [place] [address] Zehra Bunch, OT [address] [place] [address] [facility] Start: 11-05-2024 End: 11-05-2024 ambulatory 11/05/2024 12:00 PM EST Treatment [facility] [address] [place] [address] Zehra Bunch, OT [address] [place] [address] [facility] Start: 11-01-2024 End: 11-01-2024 ambulatory 11/01/2024 1:00 PM EST Treatment [facility] [address] [place] [address] Zehra Bunch, OT [address] [place] [address] [facility] Start: 10-29-2024 End: 10-29-2024 ambulatory [facility] Comment on above: Arrived Start: 10-25-2024 End: 10-25-2024 ambulatory 10/25/2024 9:00 AM EST Treatment [facility] [address] [place] [address] Zehra Bunch, OT [address] [place] [address] [facility] Start: 10-22-2024 End: 10-22-2024 ambulatory 10/22/2024 1:00 PM EST Evaluation [facility] [address] [place] [address] Zehra Bunch, OT [address] [place] [address] Closed nondisplaced fracture of base of fifth metacarpal bone of left hand with routine healing, subsequent encounter [facility] Comment on above: Closed nondisplaced fracture of base of fifth metacarpal bone of left hand with routine healing, subsequent encounter Start: 10-11-2024 End: 10-11-2024 ambulatory 10/11/2024 1:30 PM EST Evaluation [facility] [address] [place] [address] ZaneFlorina, OT [address] [place] [address] [facility] Start: 10-07-2024 End: 10-07-2024 Patient encounter procedure 10/07/2024 11:15 AM EST Office Visit [facility] [address] [place] [address] Zulema Mackay, LABOR RELATIONS OR PERSONNEL NEGOTIATOR [address] [place] [address] [facility] Start: 09-16-2024 End: 09-16-2024 Patient encounter procedure 09/16/2024 10:00 AM EST Office Visit [facility] [address] [place] [address] Zulema Mackay, LABOR RELATIONS OR PERSONNEL NEGOTIATOR [address] [place] [address] [facility] Start: 08-19-2024 End: 08-19-2024 Patient encounter procedure 08/19/2024 12:30 PM EST Office Visit [facility] [address] [place] [address] Zulema Mackay, LABOR RELATIONS OR PERSONNEL NEGOTIATOR [address] [place] [address] [facility] Start: 08-07-2024 End: 08-07-2024 [...] [address] [place] [address] Zulema Mackay, LABOR RELATIONS OR PERSONNEL NEGOTIATOR [address] [place] [address] Arrived [facility] Comment on above: Arrived Start: 06-24-2024 End: 06-24-2024 Patient encounter procedure 06/24/2024 10:30 AM EDT Office Visit [facility] [address] [place] [place] [address] Zulema Mackay NP [address] [facility] [address] [place] [address] Left hand pain (Primary Dx); Right knee pain, unspecified chronicity; Contusion of right knee, initial encounter; Contusion of dorsum of left hand; Left shoulder pain, unspecified chronicity; Arthritis of left acromioclavicular joint; Glenohumeral arthritis, left [facility] Comment on above: Left hand pain (Primary Dx); Right knee pain, unspecified chronicity; Contusion of right knee, initial encounter; Contusion of dorsum of left hand; Left shoulder pain, unspecified chronicity; Arthritis of left acromioclavicular joint; Glenohumeral arthritis, left Start: 06-13-2024 End: 06-13-2024 Patient encounter procedure 06/13/2024 12:30 PM EDT Office Visit Neurology [facility] [address] [place] [address] [place] [address] [place] [address] Return in about 3 months (around 06/06/2024) for with Dr. Monae. Neurology [facility] Comment on above: Return in about 3 months (around ) for with Dr. Monae. Start: 06-11-2024 End: 06-11-2024 Patient encounter procedure 06/11/2024 9:00 AM EDT Appointment [facility] EEG [address] [address] Memory deficit [R41.3] [facility] EEG Comment on above: Memory deficit [R41.3] Start: 06-02-2024 Covid-19 Vaccine ( season) Covid-19 Vaccine ( season) [facility] Start: 06-02-2024 Covid-19 Vaccine ( season) Covid-19 Vaccine () [facility] Start: 06-02-2024 Influenza vaccination [facility] Start: 03-29-2024 End: 03-29-2024 Patient encounter procedure 03/29/2024 11:45 AM EDT Office Visit Neurology [address] [place] [address] Memory deficit [R41.3] Neurology Comment on above: Memory deficit [R41.3] Start: 10-02-2023 Behavioral Health Screening Behavioral Health Screening [facility] Start: 06-02-2023 Covid-19 Vaccine ( season) Covid-19 Vaccine () [facility] Start: 08-12-2022 [facility] Start: 08-10-2022 Consultation [facility] Start: 08-10-2022 End: 08-10-2022 [facility] Start: 2014 Pneumococcal Vaccine: 50+ (1 of 1 - PCV) Pneumococcal Vaccine: 50+ (1 of 1 - PCV) [facility] Start: 2014 Shingrix Vaccine (1 of 2) Shingrix Vaccine (1 of 2) [facility] Start: 2009 Lipid panel Lipid Screening [facility] Start: 2009 Screening for malignant neoplasm of colon [facility] Start: 2004 Screening for malignant neoplasm of breast Mammogram Screening [facility] Start: 1994 Screening for malignant neoplasm of cervix HPV Testing [facility] Start: 1985 Screening for malignant neoplasm of cervix [facility] Start: 1983 Urine microalbumin profile DTaP,Tdap,Td Vaccine (1 - Tdap) [facility] Start: 1982 Anxiety Screening Anxiety Screening [facility] Start: 1982 Depression Screening Depression Screening [facility] Start: 1982 Hepatitis C screening Hepatitis C Screening [facility] Start: 1982 HIV screening HIV Screening [facility] Acid Fast Bacilli Cu lture & Smear Acid Fast Bacilli Culture & Smear [facility] Anaerobic microbial culture Anaerobic Culture [facility] Bacteria identified in Urine by Culture Urine Culture [facility] Chlamydia trachomati s [Presence] in Unspecified specimen by Organism specific culture [facility] Work Phone: Chlamydia trachomati s [Presence] in Unspecified specimen by Organism specific culture [facility] EEG EEG NEUROLOGY 12:00 AM EDT [facility] End: 03-06-2025 EPIL EEG ROUTINE EPIL EEG ROUTINE NEUROLOGY Routine Memory deficit Auditory hallucinations 1 Occurrences starting 03/06/2024 until 03/06/2025 [facility] Work Phone: Comment on above: 1 Occurrences starting 03/06/2024 until 03/06/2025 Fungal Culture Result 1 Fungal Culture Re sult 1 [facility] Fungus identified in Unspecified specimen by Culture [facility] Work Phone: Mycobacterium sp identified in Unspecified specimen by Organism specific culture [facility] Work Phone: Mycology Culture Mycology Culture [facility] Patient Education Bipolar disord er - Discharge instructions [facility] Instructions Know your Meds [facility] Work Phone: Patient referral [facility] Work Phone: [facility] Payers Date Payer Category Payer Self-pay 2017 Medicaid [id number] 2017 Medicaid (Managed Care) [facility] MEDICAID [id number] 1964 Unknown [id number] 2.16.840.1.739759.3.579.2. 647 1964 Unknown [id number] 2.16.840.1.386897.3.579.2. 593 1964 Unknown [id number] 2.16.840.1.825263.3.579.2. 593 1964 Unknown [id number] 2.16.840.1.934696.3.579.2. 593 1964 Unknown [id number] 2.16.840.1.653931.3.579.2. 593 1964 Unknown [id number] 2.16.840.1.106896.3.579.2. 593 1964 Unknown [id number] 2.16.840.1.098816.3.579.2. 593 1964 Unknown [id number] 2.16.840.1.044273.3.579.2. 593 1964 Unknown [id number] 2.16.840.1.610460.3.579.2. 593 1964 Unknown [id number] 2.16.840.1.001373.3.579.2. 593 1964 Unknown [id number] 2.16.840.1.546674.3.579.2. 593 1964 Unknown [id number] 2.16.840.1.954249.3.579.2. 593 1964 Unknown [id number] 2.16.840.1.014361.3.579.2. 593 1964 Unknown [id number] 2.16.840.1.568962.3.579.2. 593 1964 Unknown [id number] 2.16.840.1.372697.3.579.2. 593 1964 Unknown [id number] 2.16.840.1.768155.3.579.2. 1258 1964 Unknown [id number] 2.16.840.1.752896.3.579.2. 1258 1964 Unknown [id number] 2.16.840.1.980393.3.579.2. 1258 1964 Unknown [id number] 2.16.840.1.477676.3.579.2. 1258 1964 Unknown [id number] 2.16840.1.085087.3.579.2. 1258 1964 Unknown [id number] 2.840.1.588361.3.579.2. 1258 1964 Unknown [id number] 2.840.1.568917.3.579.2. 1258 1964 Unknown [id number] 2.840.1.320882.3.579.2. 1258 1964 Unknown [id number] 2.840.1.586804.3.579.2. 1258 1964 Unknown [id number] 2.840.1.925057.3.579.2. 1258 1964 Unknown [id number] 2.840.1.916142.3.579.2. 1258 1964 Unknown [id number] 2.840.1.204400.3.579.2. 1258 1964 Unknown [id number] 2.840.1.570632.3.579.2. 1258 1964 Unknown [id number] 2.16840.1.620493.3.579.2. 1258 1964 Unknown [id number] 2.16840.1.103569.3.579.2. 1258 1964 Unknown [id number] 2.16840.1.000238.3.579.2. 1258 1964 Unknown [id number] 2.16.840.1.884358.3.579.2. 1259 1964 Unknown [id number] 2.16.840.1.004231.3.579.2. 9 1964 Unknown [id number] 2.16.840.1.934518.3.579.2. 1259 1964 Unknown [id number] 2.16.840.1.522213.3.579.2. 9 1964 Unknown [id number] 2.16.840.1.775790.3.579.2. 1259 1964 Unknown [id number] 2.16.840.1.510100.3.579.2. 9 1964 Unknown [id number] 2.16.840.1.053557.3.579.2. 9 1964 Unknown [id number] 2.16.840.1.331132.3.579.2. 1259 1959 Self-pay [id number] 1959 Unknown [id number] Medicaid [employer] Medicaid [id number] Unknown [id number] 2.16.840.1.413273.3.579.2. 531 Unknown [id number] 2.16840.1.412785.3.579.2. 531 Unknown [id number] 2.840.1.104000.3.579.2. 531 Social History Date Type Detail Facility Tobacco smoking stat us [facility] Unknown if ever smoked [facility] Work Phone: Start: 1965 Sex Assigned At Female [facility] Start: 08-10-2022 End: 06-24-2024 Tobacco smoking status NHIS Never smoked tobacco (finding) [facility] Start: 03-06-2024 Tobacco smoking status HIIS Tobacco smoking consumption unknown [facility] Start: 03-06-2024 End: 02-17-2025 History of Social function [facility] Start: 03-06-2024 End: 02-17-2025 Area Deprivation Index [facility] National Score (1-10 0), lower number is lower risk 76 [facility] Start: 1965 Sex Assigned At Not on file [facility] Start: 06-24-2024 Tobacco use and exposure Smokeless tobacco non-user [facility] Start: 06-24-2024 End: 02-17-2025 Alcoholic beverage intake Ex-drinker (finding) [facility] Start: 06-21-2024 Gender identity Identifies as female gender (finding) [facility] Start: 06-21-2024 Sexual orientation Heterosexual (finding) [facility] Start: 11-28-2024 End: 12-04-2024 Sex Female (finding) [facility] Medical Equipment Procedure Code Equipment Code Equipment Origin al Text Equipment Identifier Dates Thoracotomy Surgical adhesive/sealant, human-derived ()[id number] FDA Start: 08-10-2022 Goals Date Patient Goal Desired Activity /State Functional Status Date Assessment Result Facility 12-04-2024 Functional status Patient at Baseline [facility] Work Phone: 08-12-2022 Functional status Patient at Baseline [facility] Work Phone: Mental Status Date Assessment Result Facility 12-04-2024 Cognitive function Cognitive Sta tus Patient at Baseline [facility] Work Phone: 08-12-2022 Cognitive function Cognitive Sta tus Patient at Baseline [facility] Work Phone: Clinical Notes 08-10-2022 to 02-17-2025 [...] Daily RT ergocalciferol (Vitamin D-2) 1.25 MG (97866 UT) capsule 1 capsule escitalopram (LEXAPRO) 10 [...] for requiring urgent evaluation. Naseem Carter APRN, LABOR RELATIONS OR PERSONNEL NEGOTIATOR-C Naseem Carter NP documented in this encounter [facility] 02-11-2025 Telephone encount er Note Patient can come to [place] 02/17 at 1:30. [facility] 02-11-2025 Miscellaneous Notes Formattin g of this note might be different from the original. Patient can come to [place] 02/17 at 1:30. Called patient back, had to leave a voicemail. She does need to come back in for surgery instructions. She can do Monday @ 1:30 if she calls back. Patient called and left vm stating she missed her appt today because she had the flu. Please call patient at [phone]. documented in this encounter [facility] 02-11-2025 Telephone encount er Note Called patient back, had to leave a voicemail. She does need to come back in for surgery instructions. She can do Monday @ 1:30 if she calls back. [facility] 02-10-2025 Telephone encount er Note Patient called and left vm stating she missed her appt today because she had the flu. Please call patient at [phone]. [facility] 01-08-2025 History of Presen t illness Narrative [...] 09/16/24, 08/19/24, 07/22/24 IN EPIC XRAY 06/19/25 @[facility] (L) UE EMG 11/28/24 NO MRI NO [...] CONTUSION TO (L) HAND ; TAKEN TO [facility] ER - [place] WITH NORCO (R) HANDED [...] Daily RT ergocalciferol (Vitamin D-2) 1.25 MG (74350 UT) capsule 1 capsule escitalopram (LEXAPRO) 10 [...] is normal. Strength additional comments: 5/5 EQUAL IMPLEMENTATION CONSULTANT STRENGTH Neurovascular Left Radial pulse: normal and [...] requiring urgent evaluation. documented in this encounter [facility] 12-04-2024 Discharge summary Note Date/Time December 04, 2024 9:[address] [facility] [address] [place] [address] Discharge Summary Signed Patient: Emigdio Apodaca MR#: [id number] : 1965 Acct:[id number] Age/Sex: 59 / F Adm Date: 5 Loc: Room: [address] [place] [address]: Jaquan Babin MD Copies to: [...] respond. 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 She reports not eating, poor ADLs, not taking her medications and sleeping too much. She denies alcoholor illegal substance abuse. Patient denies hallucinations. Patient did report her sister completed suicide. Of note, patient reports being in [facility] Monday and Monday of last week [...] them since Monday when she was at [facility] for the flu. She states her diarrhea has improved. She did eat some breakfast this morning but states she is a picky eater. Patient sees Jennifer Beasley counselor in [place]. 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 If at any time you are feeling an increase inyour psychiatric symptoms, call your physician or behavioral healthcare provider. If any time you have thoughts of harming yourself or others contact one of the following: Call (available 24/04) Crisis Text Line (available 24/04) text 4HOPE to [phone] On License Of [facility] Hope Line (available 8 a.m. Midnight) call [phone] ([phone]) Instructions: Know your Meds Prescriptions: Continued lamotrigine [...] Patient Comments: 3 days left Follow Up: [facility] [Outside] (established) Tony Amaya MD [Primary [...] <Electronically signed by Jaquan Babin MD> 12/04/24 1004 [facility] Work Phone: [phone]) 115-891403-05-[address] [address] Discharge Summary Signed Patient: Emigdio Apodaca MR#: [id number] : 1965 Acct:[id number] Age/Sex: 59 / F Adm Date: 5 Loc: 1S Room: [address] [place] [address]: Jaquan Babin MD Copies to: [...] respond. 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 She reports not eating, poor ADLs, not taking her medications and sleeping too much. She denies alcoholor illegal substance abuse. Patient denies hallucinations. Patientdid report her sister completed suicide. Of note, patient reports being in [facility] Monday and Monday of last week [...] them since Monday when she was at [facility] for the flu. She states herdiarrhea has improved. She did eat some breakfast this morning but states she is a picky eater. Patient sees Jennifer Beasley, counselor in [place]. 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 If at anytime you are feeling an increase inyour psychiatric symptoms, call your physician or behavioral healthcare provider. If any time you have thoughts of harming yourself or others contact one of the following: Call (available 24/04) Crisis Text Line (available 24/04) text 4HOPE to [phone] On License Of [facility] Hope Line (available 8 a.m. Midnight) call [phone] ([phone]) Instructions: Know your Meds Prescriptions: Continued lamotrigine [...] Patient Comments: 3 days left Follow Up: [facility] [Outside] (established) Tony Amaya MD [Primary Care Provider] - (Call for any medical needs) Exam Physical Exam Vital Signs: Temp Pulse Resp BP Pulse Ox O2 Del Method 98.1 F 78 16 99/66 L 96 Room Air 12/03/24 20:15 12/03/24 20:15 12/03/24 20:15 12/03/24 20:15 12/03/24 20:15 12/03/24 20:15 Documented By: Jaquan Babin MD 12/04/24 1001 Signed By: 12/04/24 [facility]03-04-2025 Progress note Author Jaquan Babin [facility] Note Date/Time December 03, 2024 1:[address] [facility] [address] [place] [address] Psychiatry Progress Note Signed Patient: Emigdio Apodaca MR#: [id number] : 1965 Acct:[id number] Age/Sex: 59 / F Adm Date: 5 Loc: Room: [address] [place] [address] Type : ADM IN Attending Dr: Jaquan [...] <Electronically signed by Jaquan Babin MD> 12/03/[address] [place] [address] Work Phone: 1(134) 695-168603-04-2025 [place] [address] Psychiatry Progress Note Signed Patient: Emigdio Apodaca MR#: [id number] : 1965 Acct:[id number] Age/Sex: 59 / F Adm Date: 5 Loc: Room: [address] [place] [address] Type : ADM IN Attending Dr: Jaquan [...] MD 12/03/24 0939 Signed By: 12/03/24 1411 [facility]03-03-2025 History and physical note Author Jaquan Babin [facility] Note Date/Time December 02, 2024 1:[address] [facility] [address] [place] [address] Psychiatry H&P Signed Patient: Emigdio Apodaca MR#: [id number] : 1965 Acct:[id number] Age/Sex: 59 / F Adm Date: 5 Loc: Room: [address] [place] [address] Type: ADM IN Attending Dr: Jaquan Babin [...] respond. 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 She reports not eating, poor ADLs, not taking her medications and sleeping too much. She denies alcoholor illegal substance abuse. Patient denies hallucinations. Patient did report her sister completed suicide. Of note, patient reports being in [facility] Monday and Monday of last week [...] them since Monday when she was at [facility] for the flu. She states her diarrhea has improved. She did eat some breakfast this morning but states she is a picky eater. Patient sees Jennifer Beasley, counselor in [place]. 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 [employer] Relationships: Patient identities her mom, Ana, and [...] AVH, HI, SI Insight: limited Judgment: limited [facility] Medical History (Updated 12/02/24 @ 09:21 by [...] <Electronically signed by Jaquan Babin MD> 12/02/24 [facility] Work Phone: 1(152) 543-705603-03-2025 [place] [address] Psychiatry H&P Signed Patient: Emigdio Apodaca MR#: [id number] : 1965 Acct:[id number] Age/Sex: 59 / F Adm Date: 5 Loc: Room: [address] [place] [address] Type: ADM IN Attending Dr: Jaquan Babin MD Copies to: MD Tony Dueñas MD~ Date of Service: 12/02/2024 [facility] History of Present Illness History of present [...] respond. 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 She reports not eating, poor ADLs, not taking her medications and sleeping too much. She denies alcoholor illegal substance abuse. Patient denies hallucinations. Patientdid report her sister completed suicide. Of note, patient reports being in [facility] Monday and Monday of last week [...] them since Monday when she was at [facility] for the flu. She states her diarrhea has improved. She did eat some breakfast this morning but states she is a picky eater. Patient sees Jennifer Beasley, counselor in [place]. 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 The patient was recently admitted to [facility] (11/25-11/27) after running out of home [...] Ventricular Rate 02/21/2024 79 (more content not included)...[facility]02-27-2025 History of Present illness Narrative* KATLIN Sal - 11/28/2024 11:00 AM EST Images from the original note were not included. Reason for Appointment: EMG Patient: Emigdio Apodaca : 1965 EMG Computer: [employer] Referring Physician: Zulema Mackay APRN-WALKRE EMG: CAITLIN hard rock drill operator: Tye Dominguez RT(R) Office Location: [place] Reason for EMG: c/o numbness/tingling in left hand. No hx of DM. Not on blood thinners. Comments: Procedure was explained to the patient who expressed understanding. Patient appeared to have tolerated the test well despite some discomfort due to the nature of the test. documented in this encounterMadison Medical CenterTfdvfrgskh55-45-9477 History of Present illness Narrative* Zulema Mackay [...] to walk afterwards, was taken to [facility] on 06/19/24 by her partner Pt [...] to the therapist recommending a Neurologist. TX: XR/06/19/24/[facility] LT hand, RT knee, LT shoulder, [facility] 06/19/24, norco, IBU, XR NOMS 07/22/24, XRNOMS 08/19/24, XR NOMS 10/07/24, O.T. messi noms RT Knee CT RT knee [facility] 07/05/24 Notes she started taking fosamax in 2023. States her knee is feeling better. 3.5 months Pt had tripped over a sidewalk and Fell landing on her left hand and right knee. DOI 06/19/24, she then hit her chest and rolled over onto her left shoulder hitting her shoulder. She was able to walk afterwards, was taken to [facility] ER on 06/19/24 by her partner Notes [...] dx with 6 months ago. TX: XR/06/19/24/[facility] LT hand, RT knee, LT shoulder, [facility] 06/19/24, norco, IBU, XR NOMS 06/24, [...] sensation in all fingers documented in this encounterMadison Medical [id number] History of Present illness Narrative* Zehra Bunch OT - 11/08/2024 12:00 PM EST Occupational Therapy Occupational Therapy Treatment Visit Patient Name: Emigdio Apodaca Today's Date: 11/08/2024 Linked Episodes Type: Episode: Status: Noted: Resolved: Last update: Updated by: Occupational Therapy L 5th digit fracture Active 10/08/2024 11/08/2024 9:28 AM Zehra Bunch OT Comments:Episode created from referral [id number] Visit number: 02/06 Timed Code Treatment minutes: [...] numbness and spasms to the L hand. Direct Support Professional strength has increased to 25# and LP has remained at 5#. Encouraged stretching/ nerve glides at home. Does have a follow upwith ortho on Monday. P: Continue with POC, progress per toleration. documented in this encounterMadison Medical CenterAdcoemkbio11-18-0146 History of Present illness Narrative* Zehra Bunch OT - 11/05/2024 12:00 PM EST Occupational Therapy Occupational Therapy Treatment Visit Patient Name: Emigdio Apodaca Today's Date: 11/05/2024 Linked Episodes Type: Episode: Status: Noted: Resolved: Last update: Updated by: Occupational Therapy L 5th digit fracture Active 10/08/2024 11/01/2024 12:46 PM Zehra Bunch OT Comments:Episode created from referral [id number] Visit number: 4 Timed Code Treatment minutes: [...] POC, progress per toleration. documented in this encounterMadison Medical CenterNlgfrrfdfh43-20-4582 Telephone encounter Note* Telephone Encounter - Joanna Boo - 11/01/2024 12:43 PM EST She called noting not feeling well and is cx OT for today. I reminded her, her next on 11/05. She said she'll try to be here; I told her if not feeling better to contact. NOMS [id number] Miscellaneous Notes* Telephone Encounter - Joanna Boo - 11/01/2024 12:43 PM EST She called noting not feeling well and is cx OT for today. I reminded her, her next on 11/05. She said she'll try to be here; I told her if not feeling better to contact. documented in this [facility]01-28-2025 History of Present illness Narrative* Zehra Bunch OT - 10/29/2024 1:00 PM EST Occupational Therapy Occupational Therapy Treatment Visit Patient Name: Emigdio Apodaca Today's Date: 10/29/2024 Linked Episodes Type: Episode: Status: Noted: Resolved: Last update: Updated by: Occupational Therapy L 5th digit fracture Active 10/08/2024 10/28/2024 1:49 PM Zehra Bunch OT Comments:Episode created from referral [id number] Visit number: 12/07 Timed Code Treatment minutes: [...] POC, progress per toleration. documented in this encounterMadison Medical CenterCtkpeuahrx35-01-5418 History of Present illness Narrative* Zehra Bunch OT - 10/25/2024 9:00 AM EST Occupational Therapy Occupational Therapy Treatment Visit Patient Name: Emigdio Apodaca Today's Date: 10/25/2024 Linked Episodes Type: Episode: Status: Noted: Resolved: Last update: Updated by: Occupational Therapy L 5th digit fracture Active 10/08/2024 10/24/2024 11:08 AM Zehra Bunch OT Comments:Episode created from referral [id number] Visit number: 2 Timed Code Treatment minutes: [...] POC, progress per toleration. documented in this encounterMadison Medical CenterUeowqmuvxe15-89-0651 History of Present illness Narrative* Zehra Bunch [...] Amb, Background User Comments:Episode created from referral [id number] Visit number: 1 Subjective Interim History: 59 [...] 5th digit. Strength Strength additional comments: L surveyor rod helper strength: 15# LP: 5# R surveyor rod helper strength: 30# LP: 9 Treatment: Education: HEP [...] for light strengthening and ROM at discharge. Emergency Services Director Goals: PRWHE Pain Score < 10/50 ( IE: 33/50) PRWHE Functional Score < 10/100 ( IE:57/100 ) Increase L 5th digit CHAO to 100% pain free in order to complete I/ADL tasks at discharge. Pt to increase surveyor rod helper strength by 10# and LP by 2# [...] Please sign below. Date: documented in this encounterMadison Medical CenterWpbgrmhhcp20-67-1139 Telephone encounter Note* Telephone Encounter - Joanna Boo - 10/08/2024 1:36 PM EST She called back and we scheduled her OT Eval for 1/10 w/ Florina Degroot, OT. Madison Medical CenterOnmuccnqnj25-44-7055 Miscellaneous Notes* Telephone Encounter - Joanna Boo - 10/08/2024 1:36 PM EST She called back and we scheduled her OT Eval for 1/10 w/ Florina Degroot, OT. * Telephone Encounter - Joanna Boo - 10/08/2024 11:46 AM EST Tried to contact to set-up OT for L hand, but the voicemail is full. documented in this encounterMadison Medical CenterRefeofadpr22-77-9725 Telephone encounter Note* Telephone Encounter - Joanna Boo - 10/08/2024 11:46 AM EST Tried to contact to set-up OT for L hand, but the voicemail is full. NOMS [id number] History of Present illness Narrative* Zulema Mackay NP - 10/07/2024 11:15 AM EST Images from the original note were not included. Subjective Patient ID: Emigdio Apodaca is a 59 y.o. female. LT hand 3.5 months s/p LT hand contusion She notes a few days after getting the cast off, she smashed her hand in the car door at [facility]. Here to check ROM Pt had tripped over a sidewalk and Fell landing on her left hand and right knee. DOI 06/19/24, she then hit her chest and rolled over onto her left shoulder hitting her shoulder. She was able to walk afterwards, was taken to [facility] on 06/19/24 by her partner Pt [...] to walk afterwards, was taken to [facility] on 06/19/24 by her partner Notes [...] to walk afterwards, was taken to [facility] on 06/19/24 by her partner Pt is RT handed. Hand is stiff and has been getting spasms still between 4th and 5th MC. Denies pain today. Taking TYL for multiple things. Using ice and heat. Has been moving fingers. Good ROM. Intermittent numbness, mostly in thumb. Intermittent swelling. Sometimes wakes at HS. TX: XR/06/19/24/[facility] LT hand, RT knee, LT shoulder, [facility] 06/19/24, norco, IBU, XR NOMS 07/22/24, XRNOMS 08/19/24, XR NOM[facility] 10/07/[address] RT knee [facility] 07/05/24 Notes she started taking fosamax in 2023. States her knee is feeling better. 3.5 months Pt had tripped over a sidewalk and Fell landing on her left hand and right knee. DOI 06/19/24, she then hit her chest and rolled over onto her left shoulder hitting her shoulder. She was able to walk afterwards, was taken to [facility] on 06/19/24 by her partner Notes [...] XR/06/19/24/[facility] LT hand, RT knee, LT shoulder, [facility] 06/19/24, norco, IBU, XR NOMS 06/24, CT [facility]1, XR NOM[facility] 08/07/24 RT elbow Pt notes she fell on 08/04/23 and hit her right elbow. peel oven tender to the touch, medial elbow. TX: [...] Capillary refill: <3 sec documented in this encounterMadison Medical [id number] History of Present illness Narrative* Zulema Mackay [...] to walk afterwards, was taken to [facility] on 06/19/24 by her partner Pt [...] today, goes to 5-6/10 with spasms. TX: XR/06/19/24/[facility] LT hand, RT knee, LT shoulder, [facility] 06/19/24, norco, IBU, XR NOMS 07/22/24, [...] to walk afterwards, was taken to [facility] on 06/19/24 by her partner Notes [...] dx with 6 months ago. TX: XR/06/19/24/[facility] LT hand, RT knee, LT shoulder, [facility] 06/19/24, norco, IBU, XR NOMS 06/24, [...] Capillary refill: <3 sec documented in this encounterMadison Medical CenterDwiabjdsrk76-63-0373 History of Present illness Narrative* Zulema aMckay NP - 08/19/2024 12:30 PM EST Images [...] to walk afterwards, was taken to [facility] on 06/19/24 by her partner Pt [...] numbness in the thumb. Denies swelling. TX: XR/06/19/24/[facility] LT hand, RT knee, LT shoulder, [facility] 06/19/24, norco, IBU, XR NOMS 07/22/24, [...] base of 5th MC fracture. Zulema Mackay [employer] Assessment/Plan Encounter Diagnoses: ICD-10-CM 1. Right elbow [...] of the left hand documented in this encounterMadison Medical CenterXphrypazgv94-75-2318 History of Present illness Narrative* Zulema Mackay NP - 08/07/2024 11:00 AM EST Images from the original note were not included. Subjective Patient ID: Emigdio Apodaca is a 58 y.o. female. RT Knee CT RT knee [facility] 07/05/24 Notes she started taking fosamax this [...] to walk afterwards, was taken to [facility] on 06/19/24 by her partner Notes [...] dx with 6 months ago. TX: XR/06/19/24/[facility] LT hand, RT knee, LT shoulder, [facility] 06/19/24, norco, IBU, XR NOMS 06/24, [...] healing non displaced patella fracture Zulema Mackay [employer] XR elbow 1 or 2 views right Imaging Result: Xrays AP and LAT of the right elbow performed on August 07, 2024 demonstrates no swelling, no fractures appreciated, joint congruent. Impression Unremarkable xrays of the right elbow Zulema Mackay [employer] Assessment/Plan Encounter Diagnoses: ICD-10-CM 1. Closed nondisplaced [...] how she is doing. documented in this encounterMadison Medical [id number] History of Present illness Narrative* Zulema Mackay [...] to walk afterwards, was taken to [facility] on 06/19/24 by her partner Pt is RT handed. MC block cast intact. Pain is between LF and RF. Pain at rest 5/10, with activities (worse at night) 8/10. She is taking motrin prn for the pain. Admits constant numbness in the thumb. Denies swelling. TX: XR/06/19/24/[facility] LT hand, RT knee, LT shoulder, [facility] 06/19/24, norco, IBU, XR NOMS 07/22/24 [...] Healing 5th MC base fracture. Zulema Mackay [employer] Assessment/Plan Encounter Diagnoses: ICD-10-CM 1. Left hand [...] of the left hand documented in this encounterMadison Medical CenterNoauqvuwsp80-32-8397 History of Present illness Narrative* Zulema Mackay NP - 07/10/2024 12:15 PM EDT Images from the original note were not included. Subjective Patient ID: Emigdio Apodaca is a 58 y.o. female. RT Knee CT RT knee [facility] 07/05/24 3 weeks ago, Pt had tripped over a sidewalk and Fell landing on her left hand and right knee. DOI 06/19/24, she then hit her chest and rolled over onto her left shoulder hitting her shoulder. She was able to walk afterwards, was taken to [facility] on 06/19/24 by her partner Notes [...] dx with 6 months ago. TX: XR/06/19/24/[facility] LT hand, RT knee, LT shoulder, [facility] ER 06/19/24, norco, IBU, XR NOMS 06/24, [facility] Objective Ortho Exam Knee Musculoskeletal Exam Gait Limp: right Inspection Right Erythema: none Effusion: mild Edema: none Ecchymosis: none Deformity: none Alignment: normal Palpation Right Tenderness: present Tenderness comment: over patella Range of Motion Range of motion additional comments: Not tested due to fracture I reviewed the ct of the right knee done at [facility] on 07/05/24 reveals a non displaced fracture [...] or polycentric), positional orthosis, rigid support, prefabricated, ove-fcd-oqaqw knee brace. Brace is locked at 0 [...] wbat in the brace documented in this encounterMadison Medical [id number] History of Present illness Narrative* Zulema Mackay [...] to walk afterwards, was taken to [facility] on 06/19/24 by her partner Notes [...] w/o relief. Admits waking at night. TX: XR/06/19/24/[facility] LT hand, RT knee, LT shoulder, [facility] 06/19/24, norco, IBU, RT Knee She [...] dx with 6 months ago. TX: XR/06/19/24/[facility] LT hand, RT knee, LT shoulder, [facility] 06/19/24, norco, IBU, XR NOMS 06/24 [...] xrays of the left hand done at [facility] on 06/19/24 reveals possible 5th MC fracture. I reviewed the xrays of the right knee and reveals possible patella fracture. I reviewed the xrays of the left shoulder and reveals AC and GH arthritis, no fractures noted. I reviewed [facility] report from 06/19/24 in addtion, given [...] of the left hand documented in this encounterMadison Medical CenterEsrgdtemkn42-08-7753 History of Present illness Narrative* Zoila Monae MD - 06/13/2024 12:30 PM EDT [facility] Follow up/ Established patient visit Individuals who were included in, or assisted with the encounter were: Emigdio Apodaca Zoila Monae MD Chief Complaint/Issues: Emigdio Apodaca is a 58 year old female seen in the [facility] for: Staring spells. [...] that she can have it done in [place] but she would rather come here. She [...] which included preparing to see the patient, hhrt-di-vjns patient care, completing clinical documentation, obtaining and/or reviewing separately obtained history, performing a medically appropriate examination, counseling and educating the pat ient/family/caregiver, ordering medications, tests, or procedures, communicating with other HCPs (not separately reported), and communicating results to the patient/family/caregiver. Zoila Monae MD documented in this encounterMemorial Hospital09-12-2024 NoteHNO ID: [id number] Author: ZOILA MONAE MD Service: ? Author Type: Physician Type: Progress Notes Filed: 06/13/2024 13:41 Note Text: [facility] Follow up/ Established patient visit Individuals who were included in, or assisted with the encounter were: Emigdio Apodaca Zoila Monae MD Chief Complaint/Issues: Emigdio Apodaca is a 58 year old female seen in the [facility] for: Staring spells. [...] that she can have it done in [place] but she would rather come here. She [...] Take 100 mg b (more content not included)...[facility]09-10-2024 NoteHNO ID: [id number] Author: NARCISA YUSUF MD Service: Neurology General Author Type: Physician Type: Procedures Filed: 06/13/2024 13:25 Note Text: [facility] - Electroencephalogram EMIGDIO APODACA : 1965 AGE: 58 SEX: F CSN: [id number] [facility] SVC: LOCATION: ATTENDING PHYSICIAN: DATE OF [...] have been noted. Narcisa Yusuf M.D. Neurology HK:[id number] /[id number] [id number] Telephone encounter Note* Telephone Encounter - Zoila Monae MD - 06/04/2024 1:21 PM EDT A new neuropsych order has been put in. Thanks Zoila Monae MD [facility] Work Phone: 1(781) 879-480009-03-2024 Miscellaneous Notes* Telephone Encounter - Zoila Monae MD - 06/04/2024 1:21 PM EDT A new neuropsych order has been put in. Thanks Zoila Monae MD documented in this encounterMemorial Hospital09-03-2024 NoteHNO ID: [id number] Author: ZOILA MONAE MD Service: ? Author Type: Physician Type: Progress Notes Filed: 06/04/2024 13:22 Note Text: Neuropsychology order had when they tried to get her in. A new order has been put in and good for a year. Zoila Monae [facility]09-03-2024 History of Present illness Narrative* Zoila Monae MD - 06/04/2024 1:18 PM EDT Neuropsychology order had when they tried to get her in. A new order has been put in and good for a year. Zoila Monae MD documented in this encounterMemorial Hospital08-27-2024 Telephone encounter Note * Telephone Encounter - Iveth Salazar - 05/28/2024 9:17 AM EDT Call center called the office on patients behalf stating they tried to schedule NEUROPSYCHOLOGICAL TESTING CONSULT But the test is booking out further than the active request. Would need it re ordered for scheduling. [facility]08-27-[facility] Miscellaneous Notes* Telephone Encounter - Kyle Salazaryssa - 05/28/2024 9:17 AM EDT Call center called the office on patients behalf stating they tried to schedule NEUROPSYCHOLOGICAL TESTING CONSULT But the test is booking out further than the active request. Would need it re ordered for scheduling. documented in this encounterMemorial Hospital06-05-2024 History of Present illness Narrative* Zoila Monae MD - 03/06/2024 2:00 PM EDT Images from the original note were not included. [facility] General Neurology New Patient Evaluation Consulting Provider: Tony Amaya [facility] [address] The patient presents with a chief complaint [...] year old Rh female seen in the [facility] for: Cognitive evaluation [...] for low IQ. She worked in a [employer] shop and only worked 6 months. She [...] and no carotid or cranial bruit auscultated Del Valle Cognitive Assessment (MoCA) Version 1 Total Score: 17/30 Visuospatial/Executive Alternating Jupiter Making: Patient successfully draws the pattern without [...] fabric' (0) Word 3: Required multiple choice- '[facility], [facility], [facility]' (0) Word 4: Required category [...] Abnormal ECG COPD (chronic obstructive pulmonary disease) ([facility]/HCC) Hyperlipidemia Past Surgical History: Procedure Laterality Date [...] signed: Karthikeyan Linn. Outside Data/Labs: 01/2024 at [facility]: Tox screen negative, Etoh negative, CBC is normal, CMP is normal, Folate 34, B12 148, TSH 0.01 IMPRESSION: Unremarkable intracranial CT angiogram. Unremarkable unenhanced CT of the brain. Unremarkable extracranial CT angiogram Subjective Patient-Entered Data: 03/04/24 - GENERAL NEUROLOGY SCORES I spent a total of 55 minutes on the date of the service which included preparing to see the patient, [id number] patient care, completing clinical documentation, obtaining and/or reviewing separately obtained history, performing a medically appropriate examination, counseling and educating the pat ient/family/caregiver, ordering medications, tests, or procedures, communicating with other HCPs (not separately reported), and communicating results to the patient/family/caregiver. Zoila Monae MD [facility] NoteHNO ID: [id number] Author: ZOILA MONAE MD Service: ? Author Type: Physician Type: Progress Notes Filed: 03/06/2024 15:39 Note Text: [facility] for General Neurology New Patient Evaluation Consulting Provider: Tony Amaya [address] [facility] [address] The patient presents with a chief complaint [...] year old Rh female seen in the [facility] for General Neurology for: Cognitive evaluation [...] for low IQ. 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 She [...] and no carotid or cranial bruit auscultated Del Valle Cognitive Assessment (MoCA) Version 1 Total Score: 17/30 Visuospatial/Executive Alternating Jupiter Making: Patient successfully draws the (more content not included)...[facility]05-21-2024 NoteProcedure ECG 12 lead Performed by: Regan Aldana NP Authorized by: Cassandra Alcantara MD ECG interpreted by ED Physician in the absence of a hotel front office manager: yes Rate: ECG rate: 79 ECG rate assessment: normal Rhythm: Rhythm: sinus rhythm and paced Pacing: Capture: Complete Type of pacing: Atrial Ectopy: Ectopy: none QRS: QRS axis: Normal QRS intervals: Normal QRS conduction: normal ST segments: ST segments: Normal T waves: T waves: normal Regan Aldana NP 02/20/24 1907[facility]11[facility] History and physical note Author Rodolfo Harley [facility] August 12, 2022 1:45pm Note Date/Time August 04, 2022 3 :52pm [facility] [address] [place] [address] Cardiothoracic Surgery H&P Signed Patient: Emigdio Apodaca MR#: [id number] : 1965 Acct:[id number] Age/Sex: 56 / F Adm Date: 2 Loc: [place] Room: Type: PRE SDC Attending Dr: Rodolfo [...] IgG IgM and IgA were all negative. Anti-MA-3 antibodies were 5.0. ?P ANCA was 1:80. 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 We will give 100 mg of IV Solu-Cortef on-call to the OR. We will utilize vancomycin and Levaquin given the questionable history of penicillin allergy with hives as a baby, although she states she recently had penicillin without issues. Documented By: Rodolfo Harley MD 08/04/22 1223 Signed By: <Electronically signed by MD Rodolfo Harley> 08/12/22 1345 [facility] Work Phone: 1(378) 590-353111-11-2022 Hospital Discharge instructionsAmbulatory Orders* Initiate Home Health Time Frame: 08/12/22, Location: Determined By Patient Additional Instructions no lifting 5-10 lbs. Continue Peridex mouthwash. May remove dressing tomorrow. Daily showers with Betasept wash. No driving.[facility] Work Phone: 1(137) 673-579511-11-2022 Progress note Author Monika Meza [facility] August 12, 2022 11:59am Note Date/Time August 12, 2022 8:13am [facility] [address] [place] [address] Pulmonology Progress Note Signed Patient: Emigdio Apodaca MR#: [id number] : 1965 Acct:[id number] Age/Sex: 56 / F Adm Date: 2 Loc: Room: [address] [place] [address] Type: REG SDC Attending Dr: Rodolfo Harley [...] <Electronically signed by MD Monika Meza> 08/12/22 4417 [facility] Work Phone: 1(636) 620-341611-10-2022 Progress note Author Monika Meza [facility] August 11, 2022 10:07am Note Date/Time August 11, 2022 7:43am [facility] [address] [place] [address] Pulmonology Progress Note Signed Patient: Emigdio Apodaca MR#: [id number] : 1965 Acct:[id number] Age/Sex: 56 / F Adm Date: 2 Loc: Room: [address] [place] [address] Type: REG SDC Attending Dr: Rodolfo Harley [...] <Electronically signed by MD Monika Meza> 08/11/[address] [place] [address] Work Phone: 1(518) 607-982311-09-2022 Consult note Author Monika Meza [facility] August 10, 2022 5:46pm Note Date/Time August 10, 2022 5 :41pm [facility] [address] [place] [address] Pulmonology Consult Note Signed Patient: Emigdio Apodaca MR#: [id number] : 1965 Acct:[id number] Age/Sex: 56 / F Adm Date: 2 Loc: Room: [address] [place] [address] [facility]: Rodolfo Harely MD Copies to: Rodolfo J MD Monika [...] been followed by Dr. Nadege Gardner at [place] with complaints of dyspnea on exertion as [...] signed by MD Monika Meza> 08/10/22 1746 [facility] Work Phone: Evaluation noteNo assessment information available [facility] Work Phone: Evaluation note* Diagnosis Onset Date Resolution Status Bipolar 1 disorder acute Bronchiectasis acute Hypercholesteremia acute Hypothyroidism acute Interstitial lung disease ac [facility] Work Phone: Evaluation note* Diagnosis Onset Date Resolution Status Bipolar 1 disorder acute Hypercholesteremia acute Hypothyroidism acute Interstitial lung disease ac [place] Bipolar 1 disorder acute Bronchiectasis acute Hypercholesteremia acute Hypothyroidism acute Interstitial lung disease ac [facility] Work Phone: Evaluation note* Diagnosis Memory deficit- Primary Memory loss Auditory hallucinations Hallucinations Mentally challenged Unspecified intellectual disabilities [facility] Memory deficit- Primary Memory loss Auditory hallucinations Hallucinations Mentally challenged Unspecified intellectual disabilities [facility] Diagnosis Memory deficit Memory loss Auditory hallucinations Hallucinations [facility] Diagnosis Transient neurological symptoms- Primary [facility] Diagnosis Closed nondisplaced fracture of right patella, unspecified fracture morphology, initial encounter- Primary Right knee pain, unspecified chronicity documented in this encounter [facility]* Diagnosis Left hand pain- Primary Pain in soft tissues of limb Contusion of dorsum of left hand Closed nondisplaced fracture of base of fifth metacarpal bone of left hand with routine healing, subsequent encounter documented in this encounter [facility] note* Diagnosis Right elbow pain- Primary Pain in joint, upper arm Closed nondisplaced fracture of base of fifth metacarpal bone of left hand with routine healing, subsequent encounter documented in this encounter [facility] HealthcareEvaluation note* Diagnosis Closed nondisplaced fracture of right patella with routine healing, unspecified fracture morphology, subsequent encounter- Primary Right elbow pain Pain in joint, upper arm documented in this encounter [facility] HealthcareEvaluation note* Diagnosis Left hand pain- Primary Pain in soft tissues of limb Right knee pain, unspecified chronicity Contusion of right knee, initial encounter Contusion of dorsum of left hand Left shoulder pain, unspecified chronicity 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, left documented in this encounter [facility] HealthcareEvaluation note* Diagnosis Closed nondisplaced fracture of base of fifth metacarpal bone of left hand with routine healing, subsequent encounter- Primary Closed nondisplaced fracture of right patella with routine healing, unspecified fracture morphology, subsequent encounter documented in this encounter [facility] HealthcareEvaluation note* Diagnosis Closed nondisplaced fracture of base of fifth metacarpal bone of left hand with routine healing, subsequent encounter- Primary Closed nondisplaced fracture of right patella with routine healing, unspecified fracture morphology, subsequent encounter documented in this encounter [facility]* Diagnosis Finger stiffness, left- Primary Closed nondisplaced fracture of base of fifth metacarpal bone of left hand with routine healing, subsequent encounter documented in this encounter [facility]* Diagnosis Finger stiffness, left- Primary documented in this encounter [facility] note* Diagnosis Finger stiffness, left- Primary documented in this encounter [facility]* Diagnosis Finger stiffness, left- Primary documented in this encounter [facility] note* Diagnosis Finger stiffness, left- Primary Closed nondisplaced fracture of base of fifth metacarpal bone of left hand with routine healing, subsequent encounter- Primary Closed nondisplaced fracture of right patella with routine healing, unspecified fracture morphology, subsequent encounter documented in this encounter [facility]* Diagnosis Closed nondisplaced fracture of base of fifth metacarpal bone of left hand with routine healing, subsequent encounter- Primary Closed nondisplaced fracture of right patella with routine healing, unspecified fracture morphology, subsequent encounter Numbness and tingling in left hand Disturbance of skin sensation documented in this encounter [facility] note* Diagnosis Numbness and tingling in left hand Disturbance of skin sensation documented in this encounter [facility]* Diagnosis Carpal tunnel syndrome on left- Primary Carpal tunnel syndrome Pain in left hand documented in this encounter [facility]* Diagnosis Preop examination- Primary Unspecified pre-operative examination documented in this encounter [facility] HealthcareReason for referral (narrative)* Outpatient Procedure (Routine) - Authorized Specialty Diagnoses / Procedures Referred By Contac t Referred To [facility] Diagnoses Memory deficit Auditory hallucinations Procedures EPIL EEG ROUTINE ELECTROENCEPHALOGRAM REC COMA/[place] [address] [place] [address] [place] [address] Referral ID Status Reason Start Date Expiration Date Visits Requested Visits Authorized [id number] Authorized Auto-Generat ed Referral 03/06/2024 03/06/2025 1 [...] EA AD[place] 30 [place] [address] [id number] Referral ID Status Reason Start Date Expiration Date Visits Requested Visits Authorized [id number] Ref Not Required PCP Requested Referral 03/06/2024 06/04/2024 1 3 [facility] for referral (narrative)* Outpatient Procedure (Routine) - Closed Specialty Diagnoses / Procedures Referred By Contac t Referred To Contact [facility] Diagnoses Memory deficit Auditory hallucinations Procedures EPIL EEG ROUTINE ELECTROENCEPHALOGRAM REC COMA/[place] [address] [id number] [place] [address] Referral ID Status Reason Start Date Expiration Date V isits Requested Visits Authorized [id number] Closed Auto-Generate d Referral 03/06/2024 03/06/2025 1 1 [facility] for visit Narrative* Outpatient Procedure (Routine) - Closed Specialty Diagnoses / Procedures Referred By Contac t Referred To Contact [facility] Diagnoses Memory deficit Auditory hallucinations Procedures EPIL EEG ROUTINE ELECTROENCEPHALOGRAM REC COMA/[place] [address] [id number] [place] [address] Referral ID Status Reason Start Date Expiration Date V isits Requested Visits Authorized [id number] Closed Auto-Generate d Referral 03/06/2024 03/06/2025 1 1 [facility] for visit Narrative* Consultation (Routine) - Authorized Specialty Diagnoses / Procedures Referred By Contac t Referred To Contact Occupational Therapy / Physical Therapy Diagnoses Closed nondisplaced fracture of base of fifth metacarpal bone of left hand with routine healing, subsequent encounter Procedures MA OFFICE/OUTPATIENT NEW HIGH MDM 60 MINUTES Apling, Zulema B, LABOR RELATIONS OR PERSONNEL NEGOTIATOR [address] [place] [address] Phone: tel: fax:[phone] Zehra Bunch, OT [address] [place] [address] Phone: tel:[phone] fax:[phone] Referral ID Status Reason Start Date Expiration Date Visits Requested Visits Authorized [id number] Authorized Consult and Treat 10/07/2024 04/05/2025 8 8 [facility] N[facility]* Consultation (Routine) - Authorized Specialty Diagnoses / Procedures Referred By Chris cadena Referred To Contact Occupational Therapy / Physical Therapy Diagnoses Closed nondisplaced fracture of base of fifth metacarpal bone of left hand with routine healing, subsequent encounter Procedures MA OFFICE/OUTPATIENT NEW HIGH MDM 60 MINUTES Zulema Mackay NP [address] [facility] [address] [place] [address] Phone: tel: fax: Zehra Bunch, OT [address] [place] [address] Phone: tel:[phone] fax:[phone] Referral ID Status Reason Start Date Expiration Date Visits Requested Visits Authorized [id number] Authorized Consult and Treat 10/07/2024 10/01/2025 8 8 [facility] N[facility]* Consultation (Routine) - Closed Specialty Diagnoses / Procedures Referred By Chris cadena Referred To Contact Neurology Diagnoses Numbness and tingling in left hand Procedures MA OFFICE/OUTPATIENT NEW HIGH MDM 60 MINUTES Zulema Mackay, LABOR RELATIONS OR PERSONNEL NEGOTIATOR fax: Monika Vargas, [address] [place] [address] Phone: tel: fax: Referral ID Status Reason Start Date Expiration Date V isits Requested Visits Authorized [id number] Closed Specialty Services Required 11/11/2024 05/10/2025 1 [...] 9:18am Hospital Course Note MR#: [id number] [facility] Pt. Name: Emigdio Apodaca Admitted: 03/30/2020 [...] EA AD[place] 30 [place] [address] [place] [address] Referral ID Status Reason Start Date Expiration Date Visits Requested Visits Authorized [id number] Ref Not Required PCP Requested Referral 06/04/2024 09/02/2024 1 3 Additional Source Comments INFORMATION SOURCE (unrecogn ized section and content) DATE CREATED AUTHOR 04/23/2020 [facility] DATE CREATED AUTHOR AUTHOR'S ORGANIZ ATION 01/07/2023 [facility] DATE CREATED AUTHOR AUTHOR'S ORGANIZ ATION 06/15/2024 [facility] DATE CREATED AUTHOR AUTHOR'S ORGANIZ ATION 09/22/2024 [facility] DATE CREATED AUTHOR AUTHOR'S ORGANIZ ATION 01/08/2025 [facility] DATE CREATED AUTHOR AUTHOR'S ORGANIZ ATION 02/15/2025 [facility] DATE CREATED AUTHOR AUTHOR'S ORGANIZ ATION 02/18/[address] [facility] dical Specialists EPIC Care Teams (unrecognized [...] MD Attending Provider Active Allyssa Washburn APRN [facility]- Other Provider Active Jonah Badillo MD [...] Active Rodolfo Harley MD Attending Provider Active Specialist Employee Labor Relations Relationship Specialty Start Date End Date Tony Amaya MD [address] [place] [address] Referring Family Medicine 02/09/24 Specialist Employee Labor Relations Relationship Specialty Start Date End Date Tony Amaya MD [address] [place] [address] Referring Family Medicine 02/09/24 Specialist Employee Labor Relations Relationship Specialty Start Date End Date Tony Amaya MD [address] [place] [address] Referring Family Medicine 02/09/24 Specialist Employee Labor Relations Relationship Specialty Start Date End Date Tony Amaya MD [address] [place] [address] Referring Family Medicine 02/09/24 Specialist Employee Labor Relations Relationship Specialty Start Date End Date Tony Amaya MD [address] [place] [address] PCP - General Family Medicine 06/13/24 Tony Amaya MD [address] [place] [address] Referring Family Medicine 02/09/24 Specialist Employee Labor Relations Relationship Specialty Start Date End Date Tony Amaya MD [address] [place] [address] PCP - General Family Medicine 06/24/24 Specialist Employee Labor Relations Relationship Specialty Start Date End Date Tony Amaya MD [address] [facility] [place] [address] PCP - General Family Medicine 06/24/24 Specialist Employee Labor Relations Relationship Specialty Start Date End Date Tony Amaya MD [address] [facility] [place] [address] PCP - General Family Medicine 06/24/24 Specialist Employee Labor Relations Relationship Specialty Start Date End Date Tony Amaya MD [address] [facility] [place] [address] PCP - General Family Medicine 06/24/24 Specialist Employee Labor Relations Relationship Specialty Start Date End Date Tony Amaya MD [address] [facility] [place] [address] PCP - General Family Medicine 06/24/24 Specialist Employee Labor Relations Relationship Specialty Start Date End Date Tony Amaya MD [address] [facility] [place] [address] PCP - General Family Medicine 06/24/24 Specialist Employee Labor Relations Relationship Specialty Start Date End Date Tony Amaya MD [address] [facility] [place] [address] PCP - General Family Medicine 06/24/24 Specialist Employee Labor Relations Relationship Specialty Start Date End Date Tony Amaya MD [address] [facility] [place] [address] PCP - General Family Medicine 06/24/24 Specialist Employee Labor Relations Relationship Specialty Start Date End Date Tony Amaya MD [address] [facility] [place] [address] PCP - General Family Medicine 06/24/24 Specialist Employee Labor Relations Relationship Specialty Start Date End Date Tony Amaya MD [address] [facility] [place] [address] PCP - General Family Medicine 06/13/24 Tony Amaya MD [address] [place] [facility] [place] [address] Referring Family Medicine 02/09/24 Specialist Employee Labor Relations Relationship Specialty Start Date End Date Tony Amaya MD [address] [facility] [place] [address] PCP - General Family Medicine 06/24/24 Specialist Employee Labor Relations Relationship Specialty Start Date End Date Tony Amaya MD [address] [facility] [place] [address] PCP - General Family Medicine 06/24/24 Specialist Employee Labor Relations Relationship Specialty Start Date End Date Tony Amaya MD [address] [facility] [place] [address] PCP - General Family Medicine 06/24/24 Specialist Employee Labor Relations Relationship Specialty Start Date End Date Tony Amaya MD [address] [facility] [place] [address] PCP - General Family Medicine 06/24/24 Specialist Employee Labor Relations Relationship Specialty Start Date End Date Tony Amaya MD [address] [facility] [place] [address] PCP - General Family Medicine 06/24/24 Specialist Employee Labor Relations Relationship Specialty Start Date End Date Tony Amaya MD [address] [facility] [place] [address] PCP - General Family Medicine 06/24/24 Specialist Employee Labor Relations Relationship Specialty Start Date End Date Tony Amaya MD [address] [facility] [place] [address] PCP - General Family Medicine 06/24/24 Specialist Employee Labor Relations Relationship Specialty Start Date End Date Tony Amaya MD [address] [facility] [place] [address] PCP - General Family Medicine 06/24/24 Specialist Employee Labor Relations Relationship Specialty Start Date End Date Tony Amaya MD [address] [facility] [place] [address] PCP - General Family Medicine 06/24/24 Specialist Employee Labor Relations Relationship Specialty Start Date End Date Tony Amaya MD [address] [facility] [place] [address] PCP - General Family Medicine 06/24/24 Specialist Employee Labor Relations Relationship Specialty Start Date End Date Tony mAaya MD [address] [facility] [place] [address] PCP - General Family Medicine 06/24/24 Team Status: Active Member Role Status Dates Tony Amaya MD Primary Care Provider Active Start: November 14, 2024 Alejandro Maciel MD Attending Provider Active Start: November 14, 2024 Team Status: Inactive Member Role Status Dates Tony Amaya MD Attending Provider Active Sta rt: November 26, 2024 End: November 26, 2024 Specialist Employee Labor Relations Relationship Specialty Start Date End Date Tony Amaya MD [address] [facility] [place] [address] PCP - General Family Medicine 06/24/24 Team [...] Other Provider Active Start: December 02, 2024 Specialist Employee Labor Relations Relationship Specialty Start Date End Date Tony Amaya MD PCP - General Family Medicine 06/24/24 Specialist Employee Labor Relations Relationship Specialty Start Date End Date Tony Amaya MD PCP - General Family Medicine 06/24/24 Specialist Employee Labor Relations Relationship Specialty Start Date End Date Tony [...] prosecute any alcohol or drug abuse patient.[facility] Hospital[facility] the event this information is protected by the Federal Confidentiality of Alcohol and Drug Abuse Patient Records regulations: The Federal rules restrict any use of the information to criminally investigate or prosecute any alcohol or drug abuse patient.[facility] HospitalIn the event this information is protected by the Federal Confidentiality of Alcohol and Drug Abuse Patient Records regulations: The Federal rules restrict any use of the information to criminally investigate or prosecute any alcohol or drug abuse patient.[facility] HospitalIn the event this information is protected by the Federal Confidentiality of Alcohol and Drug Abuse Patient Records regulations: The Federal rules restrict any use of the information to criminally investigate or prosecute any alcohol or drug abuse patient.[facility] HospitalIn the event this information is protected by the Federal Confidentiality of Alcohol and Drug Abuse Patient Records regulations: The Federal rules restrict any use of the information to criminally investigate or prosecute any alcohol or drug abuse patient.[facility] HospitalIn the event this information is protected by the Federal Confidentiality of Alcohol and Drug Abuse Patient Records regulations: The Federal rules restrict any use of the information to criminally investigate or prosecute any alcohol or drug abuse patient[facility] Reason for Visit (unrecogniz ed section [...] BE BASED ON THE PRIMARY CLINICAL RECORDS. [employer] [facility]. provides no warranty or guarantee of the accuracy or completeness of information in this document.
--- OUTSIDE RECORDS SUMMARY | 2025-02-20 00:11 | XMS_ITS | Encounter Summary ---
Author Organization [facility] Address [address] [place] [address] Care Team Providers Care Banking Attorney Name Role Phone Paulo Turner MD Primary Care Provider [phone] Encounter Details Date Type Department Care Team (Late st Contact Info) Description 11/18/2024 Orders Only SHAHANA SO [address] [place] [address] Alon Mallory MD [address] [facility] [address] [place] [address] [id number] Social History Tobacco Use Types Packs/Day Years [...] on file documented as of this encounter Procedures Procedure Name Priority Date/Time Associated Diagnosis Comments EMG AND NERVE CONDUCTION STUDY Routine 01/17/2018 12:53 PM EDT documented in this encounter Results * EMG AND NERVE CONDUCTION STUDY (01/17/2018 12:53 PM EDT) us Alon Mallory MD NEUROLOGY ORDERABLES Final Re sult documented in this encounter Visit Diagnoses Not on filedocumented in this encounter Care Teams Banking Attorney Relationship Specialty Start Date End Date Paulo Turner MD PCP - General Family Medicine 06/24/24 documented as of this encounter
--- OUTSIDE RECORDS SUMMARY | 2025-02-20 00:11 | XMS_ITS | Encounter Summary ---
Author Organization [facility] Address [address] [place] [address] Care Team Providers Care Framing And Hanging Name Role Phone Paulo Turner MD Primary Care Provider [phone] Encounter Details Date Type Department Care Team (Latest Contact Info) Description 02/17/2025 Travel Social History Tobacco Use Types Packs/Day Years [...] on filedocumented in this encounter Care Teams Framing And Hanging Relationship Specialty Start Date End Date Paulo Turner MD PCP - General Family Medicine 06/24/24 documented as of this encounter
--- OUTSIDE RECORDS SUMMARY | 2025-02-20 00:11 | XMS_ITS | Encounter Summary ---
Author Organization [facility] Address [address] [place] [address] Care Team Providers Care Shellfish Dredge Operator Name Role Phone Paulo Turner MD Primary Care Provider [phone] Encounter Details Date Type Department Care Team (Late st Contact Info) Description 02/10/2025 Telephone [facility] [address] [facility] [address] [place] [address] Jr. Tony Teague, DO [address] [facility] [address] [place] [address] Social History Tobacco Use Types Packs/Day Years [...] encounter Miscellaneous Notes * Telephone Encounter - Sunni Lew - 02/11/2025 1:50 PM EDT Patient can come to [place] 02/17 at 1:30. * Telephone Encounter - Ana Laura Jacobs MA - 02/11/2025 10:29 AM EDT Called patient back, had to leave a voicemail. She does need to come back in for surgery instructions. She can do Monday the @ 1:30 if she calls back. * Telephone Encounter - Sunni Lew - 02/10/2025 4:20 PM EDT Patient called and left stating she missed her appt today because she had the flu. Please call patient at [phone]. documented in this encounter Plan of Treatment Not on file documented as of this encounter Visit Diagnoses Not on filedocumented in this encounter Care Teams Shellfish Dredge Operator Relationship Specialty Start Date End Date Paulo Turner MD PCP - General Family Medicine 06/24/24 documented as of this encounter
--- OUTSIDE RECORDS SUMMARY | 2025-02-20 00:11 | XMS_ITS | Encounter Summary ---
Author Organization [facility] Address [address] [place] [address] Care Team Providers Care Ore Bridge Operator Name Role Phone Paulo Turner MD Unavailable [phone] Paulo Turner MD Primary Care Provider [phone] Source Comments In the event this information is protected by the Federal Confidentiality of Alcohol and Drug AbusePatient Records regulations: The Federal rules restrict any use of the information to criminally investigate or prosecute any alcohol or drug abuse patient.[facility] Encounter Details Date Type Department Care Team (Late st Contact Info) Description 08/16/2022 Lab Requisition [facility] [address] [place] [id number] Ruddy Hsu MD Person encountering health services to consult on behalf of another person Social History Tobacco Use Types Packs/Day Years Used Date Smoking Tobacco: Never Assessed Comments Unknown Sex and Gender Information Value Date Recorded Sex Assigned at Not on file Legal Sex Female 4:29 PM EST Gender Identity Not on file Sexual Orientation Not on file documented as of this encounter Plan of Treatment Not on file documented as of this encounter Procedures Procedure Name Priority Date/Time Associated Diagnosis Comments SURGICAL PATHOLOGY REFERENCE LAB CONSULT Routine 08/16/2022 4:33 PM EST Person encountering health services to consult on behalf of another person documented in this encounter Results * SURGICAL PATHOLOGY REFERENCE LAB CONSULT (08/16/2022 4:33 PM EST) Case Report Surgical Pathology Report Case: [id number] Authorizing Provider: Ruddy Hsu Collected: 08/16/2022 04:33 PM Ordering Location: [facility] Main Received: 08/16/2022 04:32 PM Pathologist: Kareem Pimentel MD Specimen: SLIDE(S)/BLOCK(S), 6 SLIDES ([id number]) & 4 BLOCKS (A1,A2,B1,B2) 08/16/2022 5:13 PM EST [facility] FINAL DIAGNOSIS Lung, right lower lobe lateral and right upper lobe anterior medial, surgical biopsies ([id number]; 08/10/22): - 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 08/16/2022 5:13 PM EST [facility] at 1713 EST Diagnosis Comment This biopsy shows a cellular chronic interstitial pneumonia characterized by patchy expansion of the interstitium by a lymphocyte-predomin ant infiltrate that expands the alveolar septa and involves the bronchioles. In this milieu, there is an occasional isolated multinucleated giant cell and a rare poorly formed granuloma within the interstitium. The airspaces are uninvolved except for the presence of a few macrophages, mostly within peribronchiolar alveoli. The process is predominantly cellular, with no significant fibrosis. Your special stains for microorganisms (AFB and GMS) are negative. This constellation of features is suggestive of hypersensitivity pneumonitis (Arch Pathol Lab Med 2010; PMID [id number]). The patient should be questioned thoroughly for potential source of exposure to organic antigens (e.g., pet birds, feather pillows, household mold, etc). This is important because optimal management includes removing the patient from the source of exposure or vice versa. Thank you for letting me see this difficult case. If you would like to discuss this case, or have any questions or concerns, I can be reached at [phone]. 08/16/2022 5:13 PM EST [facility] Clinical History This 56-year-old woman has a history of recurrent pneumonia and emphysema . She presented in early June with complaints of increased dyspnea on exertion, dry cough and fatigue. A chest CT on 06/20/2022 showed scattered groundglass opacities, mild emphysematous changes, mild bronchiolectasis and numerous calcified right hilar lymph nodes. A bronchoscopy was performed which showed chronic inflammation and interstitial fibrosis. 08/16/2022 5:13 PM EST [facility] Performing Lab Diagnostic interpretation performed at [facility], [address] [place] [address] CLIA# [id number] Data Support Specialist: Toñito Victoria M.D. 08/16/2022 5:13 PM EST [facility] Blocks or Slides PARAFFIN EMBEDDED TISSUE BLOCK SPECIMEN / Unknown 08/16/2022 4:33 PM EST 08/16/2022 4:32 PM EST us Ruddy Hsu MD SURGICAL PATHOLOGY Final Re sult [facility] [address] [place] [address] [place] [address], documented in this encounter Visit Diagnoses Diagnosis Person encountering health services to consult on behalf of another person Other person consulting on behalf of another person documented in this encounter Care Teams Ore Bridge Operator Relationship Specialty Start Date End Date Paulo Turner MD [address] [place] [address] PCP - General Family Medicine 06/13/24 Paulo Turner MD [address] [place] [address] Referring Family Medicine 02/09/24 documented as of this encounter
[2025-02-20] MEDS: ENOXAPARIN SODIUM 40 MG/0.4 ML SYRINGE SUBQ ×2 (00:40→22:09)
[2025-02-20] MEDS: LAMOTRIGINE 25 MG TABLET 50 MG PO ×2 (00:40→22:09)
[2025-02-20] MEDS: ONDANSETRON PF 4 MG/2 ML VIAL IV (00:43)
[2025-02-20] MEDS: IPRATROPIUM/ALBUTEROL SULFATE 3 ML AMPUL.NEB IH ×5 (03:51→23:01)
[2025-02-20 05:16] LABS: Hematocrit 39.9 % (36.0-48.0); Hemoglobin 13.1 g/dL (12.0-16.0); Mean Corpuscular HGB Conc 32.8 g/dL (29.9-35.2); Mean Corpuscular Hemoglobin 28.1 pg (26.7-34.0); Mean Corpuscular Volume 85.4 fL (81.0-99.0); Mean Platelet Volume 9.3 fL (9.5-13.5); Platelet Count 251 10^3/uL (150-450); Red Blood Count 4.67 10^6/uL (4.20-5.40); Red Cell Distribution Width 12.9 % (11.0-15.0); White Blood Count 5.1 10^3/uL (4.0-11.0)
[2025-02-20 05:33] LABS: Eosinophils Absolute Manual 0.05 10^3/uL (0.00-0.70); Lymphocytes Absolute Manual 0.61 10^3/uL (1.20-3.80); Segmented Neut Absolute Manual 4.43 10^3/uL (1.4-6.5)
[2025-02-20 05:34] LABS: Anisocytosis 1+; Ovalocytes 1+
[2025-02-20 05:40] LABS: Alanine Aminotransferase 14 U/L (14-59); Albumin Globulin Ratio 0.9; Albumin Level 3.2 g/dL (3.4-5.0); Alkaline Phosphatase 100 U/L (46-116); Anion Gap 14.3; Aspartate Amino Transferase 19 U/L (15-37); BUN Creatinine Ratio 16.3; Bilirubin Total 0.2 mg/dL (0.2-1.0); Calcium 8.6 mg/dL (8.5-10.1); Carbon Dioxide 26.7 mmol/L (21.0-32.0); Chloride 106 mmol/L (98-107); Estimated GFR (African America >60 (>=60 mL/min/1.73m^2); Estimated GFR (Non-African Ame >60 (>=60 mL/min/1.73m^2); Globulin 3.4 g/dL; Glucose 167 mg/dL (74-106); Magnesium 2.6 mg/dL (1.8-2.4); Sodium 143 mmol/L (136-145); Total Protein 6.6 g/dL (6.4-8.2)
[2025-02-20] MEDS: METHYLPREDNISOLONE SOD SUCC PF 40 MG/ML VIAL IVP (06:05)
[2025-02-20] MEDS: LEVOTHYROXINE SODIUM 125 MCG TABLET PO (06:05)
[2025-02-20 08:01] LABS: Influenza Virus A Antigen Negative; Influenza Virus B Antigen Negative; Internal Control Within Normal Limits; Respiratory Syncytial Virus Not Detected (NOT DETECTE); SARS-CoV-2 Ag NEGATIVE (NEGATIVE)
--- NOTE | 2025-02-20 08:21 | P.HP_ITS ---
HPI H&P: HPI History of Present Illness Chief complaint: COUGHING, SOB, COPD EXACERBATION, BRONCHITIS Narrative: Patient was seen and evaluated in the office yesterday with increasing cough and shortness of breath, minimal sputum production she has significant wheezing in the office she was given aerosol treatments IM Rocephin and IM Decadron. Started on p.o. antibiotics and steroids, cough and shortness of breath became worse slightly so she presented to the emergency room with acute hypoxia secondary to acute exacerbation of asthma due to acute bronchitis When I saw patient up in the medical surgical floor, still significant respiratory distress with cough throughout the evaluation Opioid HPI Opioid Management Most Recent Pain and Opioid Data: Last Pain Scale 2 11/26/24, 07:21 Last Pain Intensity 2 11/26/24, 07:21 Last Pain Assessment Today, 01:00 Last ORT Total Score 0 Today, 00:08 Last ORT Risk Category Low Risk Today, 00:08 Ur Phencyclidine Scrn, (NEGATIVE) Negative , 19:15 Review of Systems ROS Status of ROS 10 or more systems reviewed and unremark able except as noted in history and below PFSH [facility] Medical History (Updated 02/20/25 @ 08:57 by Paulo Turner MD) Hypoxemia ?R09.02 - Hypoxemia (ICD-10) ESE (acute kidney injury) ?N17.9 - Acute kidney failure, unspecified (ICD-10) Flu ?J11.1 - Influenza due to unidentified influenza virus with other respiratory manifestations (ICD-10) GERD (gastroesophageal reflux disease) ?K21.9 - Gastro-esophageal reflux disease without esophagitis (ICD-10) Hypercholesterolemia ?E78.00 - Pure hypercholesterolemia, unspecified (ICD-10) Acute respiratory failure with hypoxia ?J96.01 - Acute respiratory failure with hypoxia (ICD-10) Respiratory distress ?R06.03 - Acute respiratory distress (ICD-10) Neutropenia ?D70.9 - Neutropenia, unspecified (ICD-10) Hypotension due to hypovolemia ?E86.1 - Hypovolemia (ICD-10) Gastroenteritis due to COVID-19 virus ?U07.1 - COVID-19 (ICD-10) ?A08.39 - Other viral enteritis (ICD-10) Dehydration ?E86.0 - Dehydration (ICD-10) ESE (acute kidney injury) ?N17.9 - Acute kidney failure, unspecified (ICD-10) Gastroenteritis ?K52.9 - Noninfective gastroenteritis and colitis, unspecified (ICD-10) COVID ?U07.1 - COVID-19 (ICD-10) COVID-19 ?U07.1 - COVID-19 (ICD-10) Effusion of knee joint right ?M25.461 - Effusion, right knee (ICD-10) Contusion of hand, left ?S60.222A - Contusion of left hand, initial encounter (ICD-10) Chest pain ?R07.9 - Chest pain, unspecified (ICD-10) Hypothyroid ?E03.9 - Hypothyroidism, unspecified (ICD-10) Esophagitis ?K20.90 - Esophagitis, unspecified without bleeding (ICD-10) Pancolitis ?K51.00 - Ulcerative (chronic) pancolitis without complications (ICD-10) Pulmonary hypertension ?I27.20 - Pulmonary hypertension, unspecified (ICD-10) Cholecystitis ?K81.9 - Cholecystitis, unspecified (ICD-10) Depression ?F32.A - Depression, unspecified (ICD-10) On home O2 ?Z99.81 - Dependence on supplemental oxygen (ICD-10) Hyperthyroidism ?E05.90 - Thyrotoxicosis, unspecified without thyrotoxic crisis or storm (ICD-10) Scoliosis ?M41.9 - Scoliosis, unspecified (ICD-10) Emphysema lung ?J43.9 - Emphysema, unspecified (ICD-10) Nausea & vomiting ?R11.2 - Nausea with vomiting, unspecified (ICD-10) Pacemaker ?Z95.0 - Presence of cardiac pacemaker (ICD-10) COPD (chronic obstructive pulmonary disease) ?J44.9 - Chronic obstructive pulmonary disease, unspecified (ICD-10) Surgical History History of tonsillectomy ?Z90.89 - Acquired absence of other organs (ICD-10) H/O right wrist surgery ?Z98.890 - Other specified postprocedural states (ICD-10) H/O colectomy ?Z90.49 - Acquired absence of other specified parts of digestive tract (ICD- 10) Family History Mother Family history of COPD (chronic obstructive pulmonary disease) Grandmother Family history of cancer Sister Family history of diabetes mellitus Father Family history of myocardial infarction Social History (Updated 12/27/23 @ 23:45 by Meghana Lo) Within the past year, how often did you have a drink containing alcohol: never Within the past year, how often did you have six or more drinks on one occasion: never Score interpretation: A score less than 3 is consistent with normal alcohol consumption. 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 Known occupational exposures/hazards: No Highest level of school completed/degree received: 10th grade Do you want help with school or training: No Are you now , , , , never or living with a partner: In a typical week, how many times do you talk on the telephone with family, friends, or neighbors: 3 or more times per week How often do you get together with friends or relatives: 3 or more times per week How often do you attend denominational or judaism services: 4 or more times per year Do you belong to any clubs or organizations such as denominational groups unions, [employer] or athletic groups, or school groups: yes Total score: 3 Score interpretation: A score of greater than or equal to 2 indicates the lowest level of social isolation. Little interest or pleasure in doing things: not at all Feeling down, depressed, or hopeless: not at all Feel stressed/tense/nervous/anxious/difficulty sleeping: to some extent Life stressors: unknown source of stress Due to disability, difficulty making decisions: No Do you think of yourself as: bisexual Gender Identity: female Meds Home Medications and Allergies Home Medications ?Medication ?Instructions ?Recorded ?Confirmed ?Type bupropion HCl 300 mg 24 hr tablet, 300 mg PO DAILY 02/19/25 History extended release cholecalciferol (vitamin D3) 50 50 mcg PO DAILY 02/19/25 History mcg (2,000 unit) capsule citalopram 20 mg tablet 20 mg PO DAILY 09/25/2301/31 History lamotrigine 25 mg tablet 50 mg PO BEDTIME 09/25/23 History lansoprazole 30 mg capsule,delayed 30 mg PO DAILY 09/0202/19/25 History release levothyroxine 125 mcg tablet 125 mcg PO DAILY 09/25/23 02/19/25 History simvastatin 20 mg tablet 20 mg PO QPM 09/25/23 History docusate sodium 100 mg capsule 100 mg PO DAILY PRN con stipation 12/22/23 History ([facility]) loratadine 10 mg tablet (Allergy 10 mg PO DAILY 02/19/25 History Relief (loratadine)) meclizine 25 mg tablet 25 mg PO QID PRN dizziness 1 02/19/25 History alendronate 70 mg tablet 70 mg PO QWEEK 11/25/24 05/10/26 History albuterol sulfate 2.5 mg/3 mL 2.5 mg inhalation Q4H ME N 02/19/25 02/20/25 History (0.083 %) solution for nebulization shortness of breat h or wheezing Allergies Allergy/AdvReac Type Severity Reaction Status Date / Time codeine Allergy Mild Vomiting Verified 02/19/25 21:38 oxycodone (From Percocet) Allergy Mild Vomiting Verified 02/19/25 21:38 promethazine Allergy Mild Agitated Verified 02/19/25 21:38 Sulfa (Sulfonamide Allergy Mild Vomiting Verified 02/19/25 21:38 Antibiotics) hydromorphone (From Dilaudid) AdvReac Mild Rash Verified 02/19/25 21:38 prochlorperazine (From AdvReac Mild Unknown Verified 02/19/25 21:38 Compazine) Exam Constitutional Vital Signs, click to edit/add: Last Vital Signs Temp 98.2 F 02/20/25 08:07 Pulse 77 02/20/25 08:07 Resp 18 02/20/25 08:18 BP 102/65 02/20/25 08:07 Pulse Ox 90 L 02/20/25 08:07 O2 Del Method Nasal Cannula 02/20/25 08:07 O2 Flow Rate 1 02/20/25 08:07 Results Labs Labs: Short CBC 02/19/25 02/20/25 Range/Units 21:50 04:58 WBC 7.6 5.1 (4.0-11.0) 10^3/uL Hgb 13.9 13.1 (12.0-16.0) g/dL Hct 42.7 39.9 (36.0-48.0) % Plt Count 276 251 (150-450) 10^3/uL BMP 02/19/25 02/20/25 21:50 04:58 Sodium 141 143 Potassium 3.9 4.0 Chloride 104 106 Carbon Dioxide 28.7 26.7 BUN 16.0 15.0 Creatinine 1.01 0.92 Glucose 108 H 167 H Calcium 9.6 8.6 Liver Function 02/19/25 02/20/25 Range/Units 21:50 04:58 Total Bilirubin 0.2 0.2 (0.2-1.0) mg/dL AST 19 19 (15-37) U/L ALT 17 14 (14-59) U/L Alkaline Phosphatase 112 100 (46-116) U/L Albumin 3.8 3.2 L (3.4-5.0) g/dL Assessment and Plan Assessment and Plan (1) Hypoxia: (2) Acute bronchitis: (3) Acute exacerbation of chronic obstructive pulmonary disease (COPD): (4) Asthma: (5) GERD (gastroesophageal reflux disease): (6) Hypercholesterolemia: (7) Respiratory distress: (8) Hypothyroid: Qualifiers: Hypothyroidism type: acquired Qualified Code(s): E03.9 - H ypothyroidism, unspecified (9) Pulmonary hypertension: Plan Admission findings: Sinus tachycardia, respiratory distress, acute hypoxia with O2 sat of 87%, due to acute exacerbation of asthma COPD secondary to acute bronchitis Acute exacerbation of asthma and COPD secondary to acute bronchitis with acute hypoxia-supplemental oxygen, try to wean that today, steroids, aerosols, antibiotics, try to obtain sputum culture, check patient for COVID, flu, RSV Hypermagnesemia-this is likely secondary to the bolus Hyperglycemia-monitor close with steroids holding off on sliding scale insulin at this time based on history of not severe hyperglycemia Moderate protein calorie malnutrition-diet supplement Pulmonary hypertension-watch blood pressure closely but is a complicating factor for her acute exacerbation of her asthma and COPD Hypothyroidism-continue with home medications Depression-continue with home medications GERD-continue with home medications Seasonal allergic rhinitis continue with home medications Hypercholesterolemia-continue with home medications Admission status: Patient admitted overnight to observation, still with significant hypoxia overnight time with O2 sat of 88% on 2 L, medically necessary treatment will span 2 midnights. Inpatient status
--- NOTE | 2025-02-20 08:24 | CM.NOTE ---
Rounds made with Dr. Turner. Dr. Turner reviews plan of care with Martha. Understanding verbalized.
--- NOTE | 2025-02-20 09:05 | P.HP_ITS ---
HPI H&P: HPI History of Present Illness Chief complaint: COUGHING, SOB, COPD EXACERBATION, BRONCHITIS Narrative: Patient was seen and evaluated in the office yesterday with increasing cough and shortness of breath, minimal sputum production she has significant wheezing in the office she was given aerosol treatments IM Rocephin and IM Decadron. Started on p.o. antibiotics and steroids, cough and shortness of breath became worse slightly so she presented to the emergency room with acute hypoxia secondary to acute exacerbation of asthma due to acute bronchitis When I saw patient up in the medical surgical floor, still significant respiratory distress with cough throughout the evaluation Opioid HPI Opioid Management Most Recent Pain and Opioid Data: Last Pain Scale 2 11/26/24, 07:21 Last Pain Intensity 2 11/26/24, 07:21 Last Pain Assessment Today, 01:00 Last ORT Total Score 0 Today, 00:08 Last ORT Risk Category Low Risk Today, 00:08 Ur Phencyclidine Scrn, (NEGATIVE) Negative , 19:15 PFSH PFSH Medical History (Updated 02/20/25 @ 08:57 by Paulo Turner MD) Hypoxemia ?R09.02 - Hypoxemia (ICD-10) ESE (acute kidney injury) ?N17.9 - Acute kidney failure, unspecified (ICD-10) Flu ?J11.1 - Influenza due to unidentified influenza virus with other respiratory manifestations (ICD-10) GERD (gastroesophageal reflux disease) ?K21.9 - Gastro-esophageal reflux disease without esophagitis (ICD-10) Hypercholesterolemia ?E78.00 - Pure hypercholesterolemia, unspecified (ICD-10) Acute respiratory failure with hypoxia ?J96.01 - Acute respiratory failure with hypoxia (ICD-10) Respiratory distress ?R06.03 - Acute respiratory distress (ICD-10) Neutropenia ?D70.9 - Neutropenia, unspecified (ICD-10) Hypotension due to hypovolemia ?E86.1 - Hypovolemia (ICD-10) Gastroenteritis due to COVID-19 virus ?U07.1 - COVID-19 (ICD-10) ?A08.39 - Other viral enteritis (ICD-10) Dehydration ?E86.0 - Dehydration (ICD-10) ESE (acute kidney injury) ?N17.9 - Acute kidney failure, unspecified (ICD-10) Gastroenteritis ?K52.9 - Noninfective gastroenteritis and colitis, unspecified (ICD-10) COVID ?U07.1 - COVID-19 (ICD-10) COVID-19 ?U07.1 - COVID-19 (ICD-10) Effusion of knee joint right ?M25.461 - Effusion, right knee (ICD-10) Contusion of hand, left ?S60.222A - Contusion of left hand, initial encounter (ICD-10) Chest pain ?R07.9 - Chest pain, unspecified (ICD-10) Hypothyroid ?E03.9 - Hypothyroidism, unspecified (ICD-10) Esophagitis ?K20.90 - Esophagitis, unspecified without bleeding (ICD-10) Pancolitis ?K51.00 - Ulcerative (chronic) pancolitis without complications (ICD-10) Pulmonary hypertension ?I27.20 - Pulmonary hypertension, unspecified (ICD-10) Cholecystitis ?K81.9 - Cholecystitis, unspecified (ICD-10) Depression ?F32.A - Depression, unspecified (ICD-10) On home O2 ?Z99.81 - Dependence on supplemental oxygen (ICD-10) Hyperthyroidism ?E05.90 - Thyrotoxicosis, unspecified without thyrotoxic crisis or storm (ICD-10) Scoliosis ?M41.9 - Scoliosis, unspecified (ICD-10) Emphysema lung ?J43.9 - Emphysema, unspecified (ICD-10) Nausea & vomiting ?R11.2 - Nausea with vomiting, unspecified (ICD-10) Pacemaker ?Z95.0 - Presence of cardiac pacemaker (ICD-10) COPD (chronic obstructive pulmonary disease) ?J44.9 - Chronic obstructive pulmonary disease, unspecified (ICD-10) Surgical History History of tonsillectomy ?Z90.89 - Acquired absence of other organs (ICD-10) H/O right wrist surgery ?Z98.890 - Other specified postprocedural states (ICD-10) H/O colectomy ?Z90.49 - Acquired absence of other specified parts of digestive tract (ICD- 10) Family History Mother Family history of COPD (chronic obstructive pulmonary disease) Grandmother Family history of cancer Sister Family history of diabetes mellitus Father Family history of myocardial infarction Social History (Updated 12/27/23 @ 23:45 by Meghana Lo) Within the past year, how often did you have a drink containing alcohol: never Within the past year, how often did you have six or more drinks on one occasion: never Score interpretation: A score less than 3 is consistent with normal alcohol consumption. 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 Known occupational exposures/hazards: No Highest level of school completed/degree received: 10th grade Do you want help with school or training: No Are you now , , , , never or living with a partner: In a typical week, how many times do you talk on the telephone with family, friends, or neighbors: 3 or more times per week How often do you get together with friends or relatives: 3 or more times per week How often do you attend protestant or hinduism services: 4 or more times per year Do you belong to any clubs or organizations such as protestant groups unions, [employer] or athletic groups, or school groups: yes Total score: 3 Score interpretation: A score of greater than or equal to 2 indicates the lowest level of social isolation. Little interest or pleasure in doing things: not at all Feeling down, depressed, or hopeless: not at all Feel stressed/tense/nervous/anxious/difficulty sleeping: to some extent Life stressors: unknown source of stress Due to disability, difficulty making decisions: No Do you think of yourself as: bisexual Gender Identity: female Meds Home Medications and Allergies Home Medications ?Medication ?Instructions ?Recorded ?Confirmed ?Type bupropion HCl 300 mg 24 hr tablet, 300 mg PO DAILY 02/19/25 History extended release cholecalciferol (vitamin D3) 50 50 mcg PO DAILY 02/19/25 History mcg (2,000 unit) capsule citalopram 20 mg tablet 20 mg PO DAILY 09/25/2301/31 History lamotrigine 25 mg tablet 50 mg PO BEDTIME 09/25/23 History lansoprazole 30 mg capsule,delayed 30 mg PO DAILY 09/0202/19/25 History release levothyroxine 125 mcg tablet 125 mcg PO DAILY 09/25/23 02/19/25 History simvastatin 20 mg tablet 20 mg PO QPM 09/25/23 History docusate sodium 100 mg capsule 100 mg PO DAILY PRN con stipation 12/22/23 02/19/25 History (Col-Rite) loratadine 10 mg tablet (Allergy 10 mg PO DAILY 02/19/25 History Relief (loratadine)) meclizine 25 mg tablet 25 mg PO QID PRN dizziness 1 02/19/25 History alendronate 70 mg tablet 70 mg PO QWEEK 11/25/24 05/10/26 History albuterol sulfate 2.5 mg/3 mL 2.5 mg inhalation Q4H NJ N 02/19/25 02/20/25 History (0.083 %) solution for nebulization shortness of breat h or wheezing Allergies Allergy/AdvReac Type Severity Reaction Status Date / Time codeine Allergy Mild Vomiting Verified 02/19/25 21:38 oxycodone (From Percocet) Allergy Mild Vomiting Verified 02/19/25 21:38 promethazine Allergy Mild Agitated Verified 02/19/25 21:38 Sulfa (Sulfonamide Allergy Mild Vomiting Verified 02/19/25 21:38 Antibiotics) hydromorphone (From Dilaudid) AdvReac Mild Rash Verified 02/19/25 21:38 prochlorperazine (From AdvReac Mild Unknown Verified 02/19/25 21:38 Compazine) Exam Constitutional Vital Signs, click to edit/add: Last Vital Signs Temp 98.2 F 02/20/25 08:07 Pulse 77 02/20/25 08:07 Resp 18 02/20/25 08:18 BP 102/65 02/20/25 08:07 Pulse Ox 90 L 02/20/25 08:07 O2 Del Method Nasal Cannula 02/20/25 08:07 O2 Flow Rate 1 02/20/25 08:07 Documenting provider has reviewed patient's vital signs: yes Common normals: apparent distress (Moderate conversational dyspnea with cough persisting) Chest Common normals: inspection of chest normal Respiratory Common normals: abnormal respiratory effort (Moderate conversational dyspnea) Auscultation: rhonchi (Diffuse with poor air exchange) and wheezes (Diffuse with poor air exchange) Cardio Common normals: regular rate, regular rhythm and no murmurs Results Labs Labs: Short CBC 02/19/25 02/20/25 Range/Units 21:50 04:58 WBC 7.6 5.1 (4.0-11.0) 10^3/uL Hgb 13.9 13.1 (12.0-16.0) g/dL Hct 42.7 39.9 (36.0-48.0) % Plt Count 276 251 (150-450) 10^3/uL BMP 02/19/25 02/20/25 21:50 04:58 Sodium 141 143 Potassium 3.9 4.0 Chloride 104 106 Carbon Dioxide 28.7 26.7 BUN 16.0 15.0 Creatinine 1.01 0.92 Glucose 108 H 167 H Calcium 9.6 8.6 Liver Function 02/19/25 02/20/25 Range/Units 21:50 04:58 Total Bilirubin 0.2 0.2 (0.2-1.0) mg/dL AST 19 19 (15-37) U/L ALT 17 14 (14-59) U/L Alkaline Phosphatase 112 100 (46-116) U/L Albumin 3.8 3.2 L (3.4-5.0) g/dL Assessment and Plan Assessment and Plan (1) Hypoxia: (2) Acute bronchitis: (3) Acute exacerbation of chronic obstructive pulmonary disease (COPD): (4) Asthma: (5) GERD (gastroesophageal reflux disease): (6) Hypercholesterolemia: (7) Respiratory distress: (8) Hypothyroid: Qualifiers: Hypothyroidism type: acquired Qualified Code(s): E03.9 - Hypothyroidism, unspecified (9) Pulmonary hypertension: Plan Admission findings: Sinus tachycardia, respiratory distress, acute hypoxia with O2 sat of 87%, due to acute exacerbation of asthma COPD secondary to acute bronchitis Acute exacerbation of asthma and COPD secondary to acute bronchitis with acute hypoxia-supplemental oxygen, try to wean that today, steroids, aerosols, antibiotics, try to obtain sputum culture, check patient for COVID, flu, RSV Hypermagnesemia-this is likely secondary to the bolus Hyperglycemia-monitor close with steroids holding off on sliding scale insulin at this time based on history of not severe hyperglycemia Moderate protein calorie malnutrition-diet supplement Pulmonary hypertension-watch blood pressure closely but is a complicating factor for her acute exacerbation of her asthma and COPD Hypothyroidism-continue with home medications Depression-continue with home medications GERD-continue with home medications Seasonal allergic rhinitis continue with home medications Hypercholesterolemia-continue with home medications Admission status: Patient admitted overnight to observation, still with significant hypoxia overnight time with O2 sat of 88% on 2 L, medically necessary treatment will span 2 midnights. Inpatient status
[2025-02-20] MEDS: BENZONATATE 100 MG CAPSULE 200 MG PO ×2 (09:07→17:32)
[2025-02-20] MEDS: CETIRIZINE HCL 10 MG TABLET PO (09:07)
[2025-02-20] MEDS: BUPROPION HCL 150 MG XL TABLET 24H 300 MG PO (09:07)
[2025-02-20] MEDS: CITALOPRAM HYDROBROMIDE 20 MG TABLET PO (09:07)
[2025-02-20] MEDS: PANTOPRAZOLE SODIUM 40 MG TABLET.DR PO (09:07)
--- NOTE | 2025-02-20 09:27 | SWNOTE1 ---
SW met with pt in room. OT in room as well. Pt voiced living at home with 2 sons. Pt says has walker and cane but does not use them unless she is sick. SW and OT advised pt that she should use DME as she is reporting various falls at home. Pt does not have home oxygen and does not have home health coming in. SW to follow up as needed.
--- NOTE | 2025-02-20 11:11 | SWNOTE1 ---
SW reviewed PT/OT notes and no identified needs at this time.
[2025-02-20 11:50] LABS: Glucometer 166 mg/dL (74-106)
[2025-02-20] MEDS: METHYLPREDNISOLONE SOD SUCC PF 125 MG/2 ML VIAL 60 MG IVP ×3 (12:46→23:02)
[2025-02-20 14:57] LABS: Bilirubin Urine NEGATIVE (NEGATIVE); Blood Urine NEGATIVE (NEGATIVE); Clarity Urine CLEAR (CLEAR); Color Urine LT. YELLOW (YELLOW); Glucose Urine UA NEGATIVE (NEGATIVE); Ketones Urine NEGATIVE (NEGATIVE); Leukocyte Esterase Urine NEGATIVE (NEGATIVE); Nitrite Urine NEGATIVE (NEGATIVE); Protein Urine NEGATIVE (NEG/TRACE); Urobilinogen Urine 0.2 EU/dL (0.2-1.0)
[2025-02-20 15:05] LABS: Bacteria Urine TRACE #/HPF (NONE SEEN); Cast Seen? NONE SEEN #/LPF (NONE SEEN); Crystals Seen? None Seen #/HPF (None Seen); Mucus Urine SMALL (NONE SEEN); RBC Urine 0-2 #/HPF (0-2); Squamous Epithelial Cell Urine RARE #/LPF (NONE/RARE); Urine Culture Indicated NO; WBC Urine NONE SEEN #/HPF (NONE SEEN)
[2025-02-20 19:33] LABS: Glucometer 181 mg/dL (74-106)
[2025-02-20] MEDS: ATORVASTATIN CALCIUM 40 MG TABLET PO (22:09)
[2025-02-20] MEDS: CEFTRIAXONE 1,000 MG in 0.9 % SODIUM CHLORIDE 50 ML 100 MG IV (22:09)
[2025-02-20] MEDS: AZITHROMYCIN 500 MG in 0.9 % SODIUM CHLORIDE 250 ML 250 MG IV (23:02)
[2025-02-21] VITALS (15 sets, daily range): BP systolic 95–129; BP diastolic 53–75; PULSE 73–91; TEMP 36.4–36.8; O2SAT 93–97
[2025-02-21] MEDS: BENZONATATE 100 MG CAPSULE 200 MG PO ×3 (00:17→16:54)
[2025-02-21] MEDS: IPRATROPIUM/ALBUTEROL SULFATE 3 ML AMPUL.NEB IH ×6 (03:45→23:56)
[2025-02-21 05:43] LABS: Hematocrit 37.1 % (36.0-48.0); Hemoglobin 11.7 g/dL (12.0-16.0); Immature Granulocytes Abs Auto 0.02 10^3/uL (0.00-0.03); Immature Granulocytes Pct Auto 0.3 % (0.0-0.5); Lymphocytes Absolute Auto 0.7 10^3/uL (1.2-3.8); Lymphocytes Percent Auto 9.8 % (20.5-60.0); Mean Corpuscular HGB Conc 31.5 g/dL (29.9-35.2); Mean Corpuscular Hemoglobin 27.3 pg (26.7-34.0); Mean Corpuscular Volume 86.7 fL (81.0-99.0); Mean Platelet Volume 9.7 fL (9.5-13.5); Monocytes Absolute Auto 0.1 10^3/uL (0.3-0.8); Monocytes Percent Auto 1.3 % (1.7-12.0); Neutrophils Absolute Auto 6.6 10^3/uL (1.4-6.5); Neutrophils Percent Auto 88.6 % (43.0-75.0); Platelet Count 243 10^3/uL (150-450); Red Blood Count 4.28 10^6/uL (4.20-5.40); White Blood Count 7.5 10^3/uL (4.0-11.0)
[2025-02-21] MEDS: LEVOTHYROXINE SODIUM 125 MCG TABLET PO (05:44)
[2025-02-21] MEDS: METHYLPREDNISOLONE SOD SUCC PF 125 MG/2 ML VIAL 60 MG IVP ×3 (05:44→17:00)
[2025-02-21 05:54] LABS: Anion Gap 15.1; Carbon Dioxide 25.1 mmol/L (21.0-32.0); Chloride 108 mmol/L (98-107); Glucose 160 mg/dL (74-106); Potassium 4.2 mmol/L (3.5-5.1); Sodium 144 mmol/L (136-145)
[2025-02-21 05:55] LABS: BUN Creatinine Ratio 22.8; Calcium 8.4 mg/dL (8.5-10.1); Estimated GFR (African America >60 (>=60 mL/min/1.73m^2); Estimated GFR (Non-African Ame >60 (>=60 mL/min/1.73m^2)
--- NOTE | 2025-02-21 07:27 | P.PN_ITS ---
Progress Note: Subjective Subjective Interval history: Patient states breathing may be slightly better but still significant cough throughout the evaluation, still on supplemental oxygen, patient does not use supplemental oxygen at home Exam Constitutional Vital Signs, click to edit/add: Last Vital Signs Temp 98.2 F 02/21/25 04:00 Pulse 79 02/21/25 04:00 Resp 16 02/21/25 04:00 BP 96/53 02/21/25 04:00 Pulse Ox 95 02/21/25 06:40 O2 Del Method Nasal Cannula 02/21/25 06:40 O2 Flow Rate 1 02/21/25 06:40 Documenting provider has reviewed patient's vital signs: yes Common normals: apparent distress (Mild respiratory distress secondary to cough) Chest Common normals: inspection of chest normal Respiratory Common normals: abnormal respiratory effort (Mild respiratory distress secondary to cough) Auscultation: rhonchi and wheezes Cardio Common normals: regular rate and regular rhythm GI Common normals: Normal to inspection, nondistended, normoactive bowel sounds present Progress Note: Objective Labs Labs: Short CBC 02/21/25 Range/Units 05:18 WBC 7.5 (4.0-11.0) 10^3/uL Hgb 11.7 L (12.0-16.0) g/dL Hct 37.1 (36.0-48.0) % Plt Count 243 (150-450) 10^3/uL BMP 02/21/25 05:18 Sodium 144 Potassium 4.2 Chloride 108 H Carbon Dioxide 25.1 BUN 18.0 Creatinine 0.79 Glucose 160 H Calcium 8.4 L Urine 02/20/25 Range/Units 14:42 Urine Color Lt. yellow (YELLOW) Urine Clarity Clear (CLEAR) Urine pH 6.0 (5.0-9.0) Ur Specific [place] 1.020 (1.005-1.025) Urine Protein Negative (NEG/TRACE) mg/dL Urine Glucose (UA) Negative (NEGATIVE) mg/dL Progress Note: A&P Assessment and Plan (1) Hypoxia: (2) Acute bronchitis: (3) Acute exacerbation of chronic obstructive pulmonary disease (COPD): (4) Asthma: (5) GERD (gastroesophageal reflux disease): (6) Hypercholesterolemia: (7) Respiratory distress: (8) Hypothyroid: Qualifiers: Hypothyroidism type: acquired Qualified Code(s): E03.9 - Hypothyroidism, unspecified (9) Pulmonary hypertension: Plan Admission findings: Sinus tachycardia, respiratory distress, acute hypoxia with O2 sat of 87%, due to acute exacerbation of asthma COPD secondary to acute bronchitis Acute exacerbation of asthma and COPD secondary to acute bronchitis with acute hypoxia-supplemental oxygen, try to wean that today, steroids, aerosols, antibiotics, try to obtain sputum culture, overall improving with current regiment, but not improved to be off of supplemental oxygen, patient will need least 1 more night of hospitalization Hypermagnesemia-this is likely secondary to the bolus-resolved Hyperglycemia-monitor close with steroids holding off on sliding scale insulin at this time based on history of not severe hyperglycemia Moderate protein calorie malnutrition-diet supplement-Ensure clear Pulmonary hypertension-watch blood pressure closely but is a complicating factor for her acute exacerbation of her asthma and COPD Hypothyroidism-continue with home medications Depression-continue with home medications GERD-continue with home medications Mild dehydration with decreased urine output-fluid bolus today Seasonal allergic rhinitis continue with home medications Hypercholesterolemia-continue with home medications Admission status: Patient admitted overnight to observation, still with significant hypoxia overnight time with O2 sat of 88% on 2 L, medically necessary treatment will span 2 midnights. Inpatient status ?
[2025-02-21 07:38] LABS: Magnesium 2.3 mg/dL (1.8-2.4)
[2025-02-21] MEDS: BUPROPION HCL 150 MG XL TABLET 24H 300 MG PO (08:57)
[2025-02-21] MEDS: PANTOPRAZOLE SODIUM 40 MG TABLET.DR PO (08:57)
[2025-02-21] MEDS: CITALOPRAM HYDROBROMIDE 20 MG TABLET PO (08:58)
[2025-02-21] MEDS: CETIRIZINE HCL 10 MG TABLET PO (08:58)
--- NOTE | 2025-02-21 09:09 | CM.NOTE ---
Rounds made with Dr. Turner, pt continues to require oxygen and have periods of hypoxia. No discharge today.
[2025-02-21] MEDS: ENSURE CLEAR 237 ML LIQUID PO (10:19)
[2025-02-21] MEDS: 0.9 % SODIUM CHLORIDE 1,000 ML 250 ML IV (10:19)
[2025-02-21] MEDS: GUAIFENESIN DM 600-30 MG 12 HR TAB 1 TAB PO ×2 (11:17→22:28)
[2025-02-21] MEDS: ATORVASTATIN CALCIUM 40 MG TABLET PO (22:28)
[2025-02-21] MEDS: ENOXAPARIN SODIUM 40 MG/0.4 ML SYRINGE SUBQ (22:28)
[2025-02-21] MEDS: LAMOTRIGINE 25 MG TABLET 50 MG PO (22:28)
[2025-02-21] MEDS: CEFTRIAXONE 1,000 MG in 0.9 % SODIUM CHLORIDE 50 ML 100 MG IV (22:28)
[2025-02-22] VITALS (8 sets, daily range): BP systolic 117–139; BP diastolic 63–76; PULSE 71–80; TEMP 36.6–36.7; O2SAT 90–95
[2025-02-22] MEDS: BENZONATATE 100 MG CAPSULE 200 MG PO ×2 (00:32→09:09)
[2025-02-22] MEDS: IPRATROPIUM/ALBUTEROL SULFATE 3 ML AMPUL.NEB IH ×3 (03:59→11:39)
[2025-02-22] MEDS: LEVOTHYROXINE SODIUM 125 MCG TABLET PO (05:43)
[2025-02-22 06:25] LABS: Hematocrit 36.6 % (36.0-48.0); Hemoglobin 11.4 g/dL (12.0-16.0); Immature Granulocytes Abs Auto 0.04 10^3/uL (0.00-0.03); Immature Granulocytes Pct Auto 0.5 % (0.0-0.5); Lymphocytes Absolute Auto 0.9 10^3/uL (1.2-3.8); Lymphocytes Percent Auto 10.6 % (20.5-60.0); Mean Corpuscular HGB Conc 31.1 g/dL (29.9-35.2); Mean Corpuscular Hemoglobin 27.5 pg (26.7-34.0); Mean Corpuscular Volume 88.2 fL (81.0-99.0); Monocytes Absolute Auto 0.4 10^3/uL (0.3-0.8); Monocytes Percent Auto 4.2 % (1.7-12.0); Neutrophils Absolute Auto 7.4 10^3/uL (1.4-6.5); Neutrophils Percent Auto 84.7 % (43.0-75.0); Platelet Count 232 10^3/uL (150-450); Red Blood Count 4.15 10^6/uL (4.20-5.40); Red Cell Distribution Width 13.2 % (11.0-15.0); White Blood Count 8.8 10^3/uL (4.0-11.0)
[2025-02-22 06:38] LABS: Anion Gap 10.7; BUN Creatinine Ratio 29.5; Calcium 8.6 mg/dL (8.5-10.1); Chloride 110 mmol/L (98-107); Estimated GFR (African America >60 (>=60 mL/min/1.73m^2); Estimated GFR (Non-African Ame >60 (>=60 mL/min/1.73m^2); Glucose 126 mg/dL (74-106); Potassium 3.7 mmol/L (3.5-5.1); Sodium 144 mmol/L (136-145)
[2025-02-22] MEDS: BUPROPION HCL 150 MG XL TABLET 24H 300 MG PO (09:09)
[2025-02-22] MEDS: CETIRIZINE HCL 10 MG TABLET PO (09:10)
[2025-02-22] MEDS: GUAIFENESIN DM 600-30 MG 12 HR TAB 1 TAB PO (09:10)
[2025-02-22] MEDS: PANTOPRAZOLE SODIUM 40 MG TABLET.DR PO (09:10)
[2025-02-22] MEDS: CITALOPRAM HYDROBROMIDE 20 MG TABLET PO (09:10)
--- NOTE | 2025-02-22 10:09 | P.DS_ITS ---
DS: Providers Provider Date of admission: 02/20/25 08:27 Primary care physician: Paulo Turner MD Consults: 02/20/25 07:09 Consult to Pharmacy Routine Consulting Provider: Reason for consultation: Please Hooper me when Med Rec is Updated Has provider been notified: No Occupational Therapy Eval and Treat Routine Reason for consultation: Only if needed for Rehab Has provider been notified: No Physical Therapy Eval and Treat Routine Reason for consultation: Eval and Treat Has provider been notified: No DS: Diagnosis Discharge Diagnosis (1) Hypoxia: (2) Acute bronchitis: (3) Acute exacerbation of chronic obstructive pulmonary disease (COPD): (4) Asthma: (5) GERD (gastroesophageal reflux disease): (6) Hypercholesterolemia: (7) Respiratory distress: (8) Hypothyroid: Qualifiers: Hypothyroidism type: acquired Qualified Code(s): E03.9 - Hypothyroidism, unspecified (9) Pulmonary hypertension: Plan Admission findings: Sinus tachycardia, respiratory distress, acute hypoxia with O2 sat of 87%, due to acute exacerbation of asthma COPD secondary to acute bronchitis Acute exacerbation of asthma and COPD secondary to acute bronchitis with acute hypoxia-supplemental oxygen, try to wean that today, steroids, aerosols, antibiotics, try to obtain sputum culture, overall improving with current regiment, but not improved to be off of supplemental oxygen, patient will need least 1 more night of hospitalization Hypermagnesemia-this is likely secondary to the bolus-resolved Hyperglycemia-monitor close with steroids holding off on sliding scale insulin at this time based on history of not severe hyperglycemia Moderate protein calorie malnutrition-diet supplement-Ensure clear Pulmonary hypertension-watch blood pressure closely but is a complicating factor for her acute exacerbation of her asthma and COPD Hypothyroidism-continue with home medications Depression-continue with home medications GERD-continue with home medications Mild dehydration with decreased urine output-fluid bolus today Seasonal allergic rhinitis continue with home medications Hypercholesterolemia-continue with home medications Admission status: Patient admitted overnight to observation, still with significant hypoxia overnight time with O2 sat of 88% on 2 L, medically necessary treatment will span 2 midnights. Inpatient status DS: Summary Hospital Course Hospital Course: Patient was seen and evaluated in the office, increasing cough and shortness of breath, she responded well to a breathing treatment in the office, sent home with prednisone and antibiotics, she did start those in the evening but cough and shortness of breath persisted presented to emergency with significant hypoxia secondary to acute exacerbation of asthma and COPD due to acute bronchitis. Patient was given IV antibiotics, frequent aerosol treatments and IV steroids, responded well to that, she been able to wean off of her supplemental oxygen overnight, cough is much less than admission. This point she feels overall improved with the hypoxia resolved should be discharged to home in improving condition. Medications see list. Follow-up with me in the office next week. Time Spent with Patient Time attestation: Total time spent providing and/or coordinating discharge services: Exam Constitutional Vital Signs, click to edit/add: Last Vital Signs Temp 98.1 F 02/22/25 04:00 Pulse 75 02/22/25 07:14 Resp 20 02/22/25 07:14 BP 118/63 02/22/25 04:00 Pulse Ox 95 02/22/25 07:22 O2 Del Method Room Air 02/22/25 07:22 O2 Flow Rate 1 02/21/25 08:17 DS: Data Data Completed and Pending Labs on day of discharge: Labs from last 24 hours 02/22/25 06:05 WBC 8.8 RBC 4.15 L Hgb 11.4 L Hct 36.6 MCV 88.2 MCH 27.5 MCHC 31.1 RDW 13.2 Plt Count 232 MPV 10.0 Neut % (Auto) 84.7 H Lymph % (Auto) 10.6 L Pettis % (Auto) 4.2 Eos % (Auto) 0.0 L Baso % (Auto) 0.0 L Neut # (Auto) 7.4 H Lymph # (Auto) 0.9 L [place]is # (Auto) 0.4 Eos # (Auto) 0.0 Baso # (Auto) 0.0 Abs Immat Gran (auto) 0.04 H Imm/Tot Granulo (auto) 0.5 Sodium 144 Potassium 3.7 Chloride 110 H Carbon Dioxide 27.0 Anion Gap 10.7 BUN 23.0 H Creatinine 0.78 Est GFR ( Amer) >60 Est GFR (Non-Af Amer) >60 BUN/Creatinine Ratio 29.5 Glucose 126 H Calcium 8.6 Discharge Plan Discharge Disposition: Home, Self-Care Condition: Good Discharge Medications: New prednisone 10 mg tablet 40 mg PO DAILY Qty: 32 0RF Rx Instructions: 4/day for 3 days, 3/day for 3 days, 2/day for 3 days, 1/day for 3 days, 1/2 /day for 4 days cefdinir 300 mg capsule 600 mg PO DAILY Qty: 20 0RF benzonatate 200 mg capsule 200 mg PO TID PRN (Reason: cough) Qty: 30 0RF ondansetron 4 mg tablet,disintegrating 4 mg PO Q6H PRN (Reason: nausea and vomiting) Qty: 20 0RF meclizine 25 mg tablet 25 mg PO QID PRN (Reason: dizziness) Qty: 30 0RF albuterol sulfate [Ventolin HFA] 90 mcg/actuation HFA aerosol inhaler 2 inh inhalation Q6H PRN (Reason: shortness of breath or wheezing) Qty: 8.5 11RF Continued meclizine 25 mg tablet 25 mg PO QID PRN (Reason: dizziness) alendronate 70 mg tablet 70 mg PO QWEEK albuterol sulfate 2.5 mg /3 mL (0.083 %) solution for nebulization 2.5 mg inhalation Q4H PRN (Reason: shortness of breath or wheezing) bupropion HCl 300 mg tablet extended release 24 hr 300 mg PO DAILY cholecalciferol (vitamin D3) 50 mcg (2,000 unit) capsule 50 mcg PO DAILY citalopram 20 mg tablet 20 mg PO DAILY lamotrigine 25 mg tablet 50 mg PO BEDTIME lansoprazole 30 mg capsule,delayed release(DR/EC) 30 mg PO DAILY levothyroxine 125 mcg tablet 125 mcg PO DAILY simvastatin 20 mg tablet 20 mg PO QPM loratadine [Allergy Relief (loratadine)] 10 mg tablet 10 mg PO DAILY docusate sodium [Col-Rite] 100 mg capsule 100 mg PO DAILY PRN (Reason: constipation) Print Language: Frisian Forms: Portal Instructions
[2025-02-22] MEDS: CEFDINIR 300 MG CAPSULE 600 MG PO (11:32)
[2025-02-22] MEDS: PREDNISONE 20 MG TABLET 40 MG PO (11:32)
--- NOTE | 2025-02-27 14:50 | CM.DCFOLLOWU ---
1st attempt. No answer
== END 2025-02-22 13:42 | disposition home or self-care (01) | DRG 145 ==
LOC: ER 23:42 → MS 02-20 00:08
PROVIDERS: Registered Nurse; Admitting Provider Family Medicine; Emergency Provider Emergency Medicine; PCP Family Medicine; Visit Provider Family Medicine
DX: J20.9 Acute bronchitis, unspecified (principal); J43.9 Emphysema, unspecified; R09.02 Hypoxemia; K21.9 Gastro-esophageal reflux disease without esophagitis; E78.00 Pure hypercholesterolemia, unspecified; Z86.16 Personal history of COVID-19; E03.9 Hypothyroidism, unspecified; Z95.0 Presence of cardiac pacemaker; Z90.49 Acquired absence of other specified parts of digestive tract; J45.901 Unspecified asthma with (acute) exacerbation; R06.03 Acute respiratory distress; I27.20 Pulmonary hypertension, unspecified; M41.9 Scoliosis, unspecified; Z79.890 Hormone replacement therapy; E83.41 Hypermagnesemia; R73.9 Hyperglycemia, unspecified; E44.0 Moderate protein-calorie malnutrition; F32.A Depression, unspecified; E86.0 Dehydration; Z68.20 Body mass index [BMI] 20.0-20.9, adult
CPT/HCPCS: 36415; 51798; 71046; 80048; 80053; 81001; 82948; 83605; 83735; 83880; 84484; 85007; 85025; 85027; 86140; 87040; 87070; 87205; 87420; 87804; 87811; 93005; 94640; 94667; 94668; 94761; 97161; 97165; J0456; J0696; J1650; J2405; J2919; J3475; J7512

== ENCOUNTER 2025-05-29 22:02 | Emergency (ER) | payer OTHER, SELFPAY ==
--- OUTSIDE RECORDS SUMMARY | 2024-12-03 04:40 | XMS_ITS ---
Author Organization [facility] es Address [address] [place] [address] Care Team Providers Care Legal Services Professional Name Role Phone Mita Nunez Primary Care Provider Kaley Bruce Unavailable [phone] REASON FOR VISIT SENT TEXT TO R/S Encounters Encounter Location Date Provider Diagnosis [address] [place] [address] 12/03/2024 Kaley Bruce Plan Of Treatment Next Appt Details Provider Name:Hattie Bond, 06/10/2025 09:30:00 AM, [address], [place], [address], Progress Notes * EMIGDIO ELIDOB:1965 (59 yo F)Acc No.[id number]:12/03/2024 Patient: EMIGDIO LYLES Provider: Margie Bruce DDS :1965 A ge:59 Y S ex:Female Date:12/03/2024 Address:[address] [place] [address], [id number] Pcp:Mita Romero Subjective: * Chief Complaints: * 1 . SENT TEXT TO R/S. * Medical History: Objective: * Vitals: Assessment: Plan: * Treatment: * Images: * Electronic signature of Robin Bruce DDS on 05/29/2025 at 10:07 PM EDT Sign off status: Pending * Provider: Margie Bruce DDS Date: 0 12/03/2024 Generated for Ale antoine/Beverly/Siomaraitting on: 0 05/29/2025 10:07 PM EDT
--- OUTSIDE RECORDS SUMMARY | 2025-05-15 09:37 | XMS_ITS ---
Author Organization [facility] in [place] Address [address] [place] [address] Care Team Providers Care Cyber Engineer Name Role Phone Zion Turner Primary Care Provider Thomas Izquierdo Unavailable [phone] REASON FOR VISIT Letter/Appointment Encounters Encounter Location Date Provider Diagnosis [facility] [place] [address] [place] [address] 05/15/2025 Thomas Izquierdo Plan Of Treatment No Information Progress Notes * Martha APODACA SDOB:[birth year] (59 yo F)Acc No.[id number]:05/15/2025 Patient: Olivia JAMESMARLYS Martha Jessica :1965 A ge:59 Y S ex:Female Address:[address] [place] [address], [address] * true * Date: Generated for Printi ng/Faxing/eTransmitting on: 0 05/29/2025 10:07 PM EDT
--- OUTSIDE RECORDS SUMMARY | 2025-05-23 07:32 | XMS_ITS ---
Author Organization [facility] [place] Address [address] [place] [address] Care Team Providers Care Correctional Counselor/Case Manager Name Role Phone Zion Turner Primary Care Provider [phone] REASON FOR VISIT tooth infection Medications Medication SIG (Take, Route, Frequency, Duration) Notes Start Date End Date Status Amoxicillin-Pot Clavulanate 875-125 MG 1 tablet Orally every 12 hrs for 10 days 05/23/2025 Active Encounters Encounter Location Date Provider Diagnosis [facility] [address] [place] [address] 05/23/2025 Zion Turner Plan Of Treatment Medication Medication Name Sig Start Date Stop Date Notes Amoxicillin-Pot Clavulanate 875-125 MG 1 tablet Orally every 12 hrs for 10 days 05/23/2025 Progress Notes * PAULIEMartha SDOB:[birth year] (59 yo F)Acc No.[id number]:05/23/2025 Patient: Martha LYLES :1965 A ge:59 Y S ex:Female Address:[address] [place] [address], [address] * Refills Start Amoxicillin-Pot Clavulanate Tablet, 875-125 MG, Orally, 20 Tablet, 1 tablet, every 12 hrs, 10 days, Refills=0 * true * Date: Generated for Printi ng/Faxing/eTransmitting on: 0 05/29/2025 10:08 PM EDT
--- OUTSIDE RECORDS SUMMARY | 2025-05-29 22:07 | XMS_ITS | Clinical Summary ---
Author Organization [employer] [facility] Address [id number] [address] [place] [address] Care Team Providers Care Cosmetologist Apprentice Name Role Phone Paulo Turner MD Primary Care Provider [phone] Social History Tobacco Use Types Packs/Day Years Used Date Smoking Tobacco: Never Assessed Childcare Answer Date Recorded Childcare Unknown 03/13/2019 Employment Answer Date Recorded Employment Unknown 03/13/2019 Purpose - Life Answer Date Recorded Purpose and direction in life Unknown Comments Unknown Sex and Gender Information Value Date Recorded Sex Assigned at Not on file Legal Sex Female 11:22 AM EDT Gender Identity Not on file Sexual Orientation Not on file Plan of Treatment Health Maintenance Due Date Last Done Comments Depression Screening 1976 Tobacco Screening 1976 Adult BMI Screening 1982 DTaP,Tdap and Td Vaccines (1 - Tdap) 1983 Pap Smear 1985 Zoster (Shingles) Vaccine (1 of 2) 2014 Influenza Vaccine 06/02/2025 Medical Devices Not on file Insurance [employer] Care Teams Cosmetologist Apprentice Relationship Specialty Start Date End Date Paulo Turner MD PCP - General Family Medicine 08/05/19
--- OUTSIDE RECORDS SUMMARY | 2025-05-29 22:07 | XMS_ITS | Clinical Summary ---
Author Organization [facility] Address [address] [place] [address] Care Team Providers Care Advanced Solutions Architect Name Role Phone Paulo Turner MD Unavailable [phone] Paulo Turner MD Primary Care Provider [phone] Allergies Active Allergy Reactions Criticality Noted Date [...] Given: No Area Deprivation Index Answer Date Parker rded National Score (1-100), lower number is lower ri sk 76 03/06/2024 State Score (1-10), lower number is lower risk 6 03/06/2024 Data from: https://www.neighborhoodatlas.medicine.[facility].edu/. Last address used for calculation [address] 03/06/2024 Comments Unknown Sex and Gender Information [...] 2014 Shingrix Vaccine (1 of 2) 2014 Influenza Vaccine (#1) 2025 Diabetes Screening 02/19/2027 02/20/2024, 0 01/03/2024, 01/02/2024, Additional history exists RSV Vaccine (1 - 1-dose 75+ series) 2039 Insurance [facility] MEDICAID Care Teams Advanced Solutions Architect Relationship Specialty Start Date End Date Paulo Turner MD [address] [place] [address] PCP - General Family Medicine 06/13/24 Paulo Turner MD [address] [place] [address] Referring Family Medicine 02/09/24
--- OUTSIDE RECORDS SUMMARY | 2025-05-29 22:07 | XMS_ITS | Encounter Summary ---
Author Organization [facility] Address [address] [place] [address] Care Team Providers Care Spool Winder Name Role Phone Paulo Turner MD Primary Care Provider [phone] Encounter Details Date Type Department Care Team (Late st Contact Info) Description 02/02/2025 Orders Only [facility] [address] [place] [address] Chandrakant Alba MD [address] [place] [address] Social History Tobacco Use Types Packs/Day Years Used Date Smoking Tobacco: Never Smokeless Tobacco: Never Alcohol Use Standard Drinks/Week Comments Not Currently 0 (1 standard drink = 0.6 oz pur e alcohol) [facility] Utilities Answer Date Recorded In the past 12 months has [employer], gas, oil, or water [employer] threatened to shut off services in your [...] place to sleep or slept in a longterm (including now)? No 01/02/2024 Hunger Vital Sign Answer Date Recorded Within the past 12 months, y ou worried that your food would run out before you got the money to buy more. Never true 01/02/20 24 Ran Out of Food in the Last Year Not on file 01/02/2024 Comments No Sex and Gender Information Value Date Recorded Sex Assigned at Female 05/13/2025 8:46 PM EDT Legal Sex Female 12:25 AM EDT Gender Identity Female 05/13/2025 8:46 PM EDT Sexual Orientation Don't know 05/13/2025 8: 46 PM EDT documented as of this encounter Plan of Treatment Not on file documented as of this encounter Procedures Procedure Name Priority Date/Time Associated Diagnosis Comments CARDIAC DEVICE CHECK - REMOTE - PACEMAKER Routine 02/02/2025 12:00 AM EDT documented in this encounter Results * Cardiac device check - Remote pacemaker (02/02/2025 12:00 AM EDT) Anatomical Region Laterality Modality Other 02/02/2025 us Chandrakant Alba MD CV IMPLANTABLE CARDIAC DEVICE LA OCEDURES Final Result documented in this encounter Visit Diagnoses Not on filedocumented in this encounter Care Teams Spool Winder Relationship Specialty Start Date End Date Paulo Turner MD [address] [facility] [address] [address] PCP - General 04/26/23 documented as of this encounter
--- OUTSIDE RECORDS SUMMARY | 2025-05-29 22:07 | XMS_ITS | Encounter Summary ---
Author Organization [facility] Address [address] [place] [address] Care Team Providers Care Master In Chancery Name Role Phone Paulo Turner MD Primary Care Provider [phone] Encounter Details Date Type Department Care Team (Late st Contact Info) Description 05/21/2025 Refill [facility] [address] [facility] [place] [address] García Rosales NP [address] [facility] [place] [address] Post-op pain (Primary Dx) Social History Tobacco Use Types [...] encounter Miscellaneous Notes * Telephone Encounter - García Rosales NP - 05/21/2025 4:10 PM EDT Post op pain rx. PDMP reviewed documented in this encounter Plan of Treatment Upcoming Encounters Date Type Department Care Team (Late st Contact Info) Description 06/04/2025 1:00 PM EDT Office Visit [facility] [address] [place] [address] Jr. Tony Teague, DO [address] [facility] [address] [place] [address] documented as of this encounter Visit Diagnoses Diagnosis Post-op pain- Primary Other acute postoperative pain documented in this encounter Care Teams Master In Chancery Relationship Specialty Start Date End Date Paulo Turner MD [address] [facility] [place] [address] PCP - General Family Medicine 05/02/25 documented as of this encounter
--- OUTSIDE RECORDS SUMMARY | 2025-05-29 22:07 | XMS_ITS | Patient Health Record ---
Author Organization [facility] Address [address] [place] [address] Care Team Providers Care Director Of Photography Name Role Phone Mita Nunez Primary Care Provider Kaley Bruce Unavailable [phone] Reason For Referral No Information Plan Of Treatment Next Appt Details Provider Name:Hattie Bond, 06/10/2025 09:30:00 AM, [address], [place], [address],
--- OUTSIDE RECORDS SUMMARY | 2025-05-29 22:07 | XMS_ITS | Encounter Summary ---
Author Organization [facility] Address [address] [place] [address] Care Team Providers Care Home Lending Officer Name Role Phone Paulo Turner MD Primary Care Provider [phone] Reason for Visit * Reason Onset Date Comments Surgery Cancellation 05/22/2025 Encounter Details Date Type Department Care Team (Late Contact Info) Description 05/22/2025 Telephone [facility] [address] [facility] [address] [place] [address] Ana Laura Oliveira MA Surgery Cancellation Social History Tobacco Use Types Packs/Day Years [...] Notes * Telephone Encounter - Ana Laura Oliveira MA - 05/22/2025 2:59 PM EDT Maulik from [employer] called and let me know that Dr. Teague cancelled due to a mouth infection. documented in this encounter Plan of Treatment Upcoming Encounters Date Type Department Care Team (Late Contact Info) Description 06/04/2025 1:00 PM EDT Office Visit [facility] [address] [place] [address] Jr. Tony Teague, DO [address] [facility] [address] [place] [address] documented as of this encounter Visit Diagnoses Not on filedocumented in this encounter Care Teams Home Lending Officer Relationship Specialty Start Date End Date Paulo Turner MD [address] [facility] [place] [address] PCP - General Family Medicine 05/02/25 documented as of this encounter
--- OUTSIDE RECORDS SUMMARY | 2025-05-29 22:08 | XMS_ITS | Clinical Summary ---
Author Organization [facility] Address [address] [place] [address] Care Team Providers Care Tar Boiler Name Role Phone Paulo Turner MD Primary Care Provider [phone] Allergies Active Allergy Reactions Criticality Noted Date Comments Prochlorperazine 04/26/2023 Sulfa (Sulfonamide Antibiotics) 04/02 Medications loratadine (Claritin) 10 mg tablet Take 10 mg by mouth in the morning. 3 Active lansoprazole (Prevacid) [address] capsule 1 (one) time each day at the same time. Active levothyroxine (Synthroid, Levoxyl) 125 mcg tablet Take 125 mcg by mouth in the morning. 3 Active simvastatin (Zocor) 20 mg tablet Take 20 mg by mouth at bedtime. 3 Active cholecalciferol, vitamin D3, 50 mcg (2,000 unit) capsule 1 capsule 1 (one) time each day at the same time. Active buPROPion XL (Wellbutrin XL) 300 mg 24 hr tablet 1 (one) time each day at the same time. Active lamoTRIgine (LaMICtal) 25 mg tablet Take 2 tablets by mouth in the morning. 3 Active albuterol 90 mcg/actuation inhaler every 4 (four) hours. Active citalopram (CeleXA) 20 mg tablet Take 20 mg by mouth in the morning. Active Fosamax 70 mg tablet 1 tablet 30 minutes before the first food, beverage or medicine of the day with plain water Orally for 30 days 4 Active meclizine (Antivert) 25 mg tablet Take 25 mg by mouth if needed in the morning, at noon, in the evening, and at bedtime. Active ondansetron ODT (Zofran-ODT) 4 mg disintegrating tablet Take 4 mg by mouth if needed. 5 Active Active Problems Problem Noted Date Diagnosed Date Carpal tunnel syndrome, left 02/03/2025 Carpal tunnel syndrome, right 02/03/2025 Distal paresthesia 02/03/2025 Osteoporosis 02/03/2025 Vitamin D deficiency 02/03/2025 Finger stiffness, [...] PM EDT): - Biotronik dual-chamber PPM implanted [address] Weaver - normal device function and stable lead thresholds, device checks as scheduled Hyperlipidemia Assessment & Plan (05/03/2023 1:46 PM EDT): -CT statin Encounters Date Type Department Care Team Description 05/05/2025 9:30 AM EDT Ancillary Procedure [facility] [address] [place] [address] Adjustment and management of cardiac pacemaker 05/04/2025 Orders Only [facility] [address] [place] [address] Chandrakant Alba MD 03/28/2025 2:00 PM EDT Office Visit [facility] [address] [place] [address] Darryl Valdez, WALKER CURRAN (dyspnea on exertion) (Primary Dx); Cardiac pacemaker in situ; Chronic obstructive pulmonary disease, unspecified COPD type (CMS/HCC); Mixed hyperlipidemia 03/27/2025 Orders Only [facility] [address] [place] [facility] [place] [address] Provider, MD Rojas from Last 3 Months Family History Medical History Relation Name Comments Alzheimer's disease Father Relation Name Status Comments Father Mother Alive Social History Tobacco Use Types Packs/Day Years Used Date Smoking Tobacco: Never Smokeless Tobacco: Never Alcohol Use Standard Drinks/Week Comments Not Currently 0 (1 standard drink = 0.6 oz pur e alcohol) [facility] Utilities Answer Date Recorded In the past 12 months has th e [employer], gas, oil, or water [employer] threatened to shut off services in your [...] place to sleep or slept in a retirement (including now)? No 01/02/2024 Hunger Vital Sign [...] Don't know 05/13/2025 8: 46 PM EDT Last Filed Vital Signs Vital Sign Reading Time Taken Comments Blood Pressure 112/72 03/28/2025 2:07 PM EDT Pulse 82 03/28/2025 2:07 PM EDT Temperature 36.7 C (98 F) 02/20/2024 6:44 PM EDT Respiratory Rate 17 02/20/2024 9:30 PM EDT Oxygen Saturation 92% 03/28/2025 2:07 PM EDT Inhaled Oxygen Concentration - - Weight 46.3 kg (102 lb) 03/28/2025 2:07 PM EDT Height 152.4 cm (5') 03/28/2025 2:07 PM EDT Body Mass Index 19.92 03/28/2025 2:07 PM EDT Plan of Treatment Health Maintenance Due Date Last Done Comments CT Colonography 1964 Colonoscopy 1964 Colorectal Cancer Screening 1965 FIT-DNA 1964 FIT 1964 FOBT 1964 Sigmoidoscopy 1964 Depression Screening 1976 Pneumococcal Vaccine: Pediat rics (0 to 5 Years) and At-Risk Patients (6 to 64 Years) (1 of 2 - PCV) 1983 Pap Smear 1985 Adult Tetanus 1986 Cervical Cancer Screening 1994 HPV/Cotest 1994 Mammogram 2004 Zoster Vaccines (1 of 2) 2014 COVID-19 Vaccine (2023-2 5 season) 2024 Influenza Vaccine (#1) 2025 HIB Vaccines Aged Out No longer [...] CARDIAC DEVICE CHECK CHECK - REMOTE Routine 05/13/2025 1:54 PM EDT Adjustment and management of cardiac pacemaker CARDIAC DEVICE CHECK - REMOTE - PACEMAKER Routine 05/04/2025 12:00 AM EDT from Last 3 Months Results * CARDIAC DEVICE CHECK - REMOTE - PACEMAKER (05/13/2025 1:54 PM EDT) Aguila Weaver MD CV IMPLANTABLE CARDIAC DEVICE AK OCEDURES Final Result CPACS * Cardiac device check - Remote pacemaker (05/04/2025 12:00 AM EDT) Anatomical Region Laterality Modality Other 05/04/2025 Chandrakant Alba MD CV IMPLANTABLE CARDIAC DEVICE AK OCEDURES Final Result from Last 3 Months Insurance [facility] MEDICAID Advance Directives * Full Code (Latest Code Status on File) Date Activated Date Inactivated Comments 01/02/2024 12:45 AM 01/05/2024 9:48 PM Care Teams Tar Boiler Relationship Specialty Start Date End Date Paulo Turner MD [address] [facility] [address] [address] PCP - General 04/26/23
--- OUTSIDE RECORDS SUMMARY | 2025-05-29 22:08 | XMS_ITS | Clinical Summary ---
Author Organization [facility] Address [address] [facility], [address] [place] [address] Care Team Providers Care Well Services Operator Name Role Phone Kayy Mccormack MD Primary Care Provider [phone] Allergies Active Allergy Reactions Criticality Noted Date [...] Plan of Treatment Not on file [place] [address] [place] Care Teams Well Services Operator Relationship Specialty Start Date End Date Kayy Mccormack MD [address] [id number] PCP - General 10/13/14
--- OUTSIDE RECORDS SUMMARY | 2025-05-29 22:08 | XMS_ITS | Patient Health Record ---
Author Organization The [facility] in [place] Address [address] [place] [address] Care Team Providers Care General Accountant Name Role Phone Zion Turner Primary Care Provider [phone] Thomas Izquierdo Unavailable [phone] Allergies Allergen (clinical drug ingredient) Drug/Non Drug Allergy documented on EMR Reaction Allergy Type Onset Date Status promethazine Phenergan Unknown Drug Allergy Acti ve Compazine Unknown Drug Allergy Active Substance with sulfonamide structure and antibacterial mechanism of action (substance) Sulfa Antibiotics Unknown Drug Allergy Active morphine Morphine Unknown Drug Allergy Active Results Component Value Reference Range Notes VITAMIN D 25 [place] Reviewed date:06/27/2024 03:32:10 PM Interpretation: Performing Lab: Notes/Report: [facility] , Vitamin D 23.3 <20 ng/mL Vit D deficient 20-<30 ng/mL Vit D insufficient 30-100 ng/mL Vit D sufficient >100 ng/mL Potential Toxicity Performing Lab: see note ML - [facility] LB CT knee RT wo con Reviewed date:07/06/2024 09:25:05 PM Interpretation: Performing Lab: Notes/Report: Source Facility: [facility]-[address] [place] [address] [address] [address] Scan Report Signed Patient: MARTHA APODACA MR#: [id number] : 1965 Acct:[id number] Age/Sex: 58 / F ADM Date: 07/05/24 Loc: CT Attending Dr: Tony Turner M.D. Ordering Physician: Tony Turner M.D. Date of Service: 07/05/24 Procedure(s): CT knee RT wo con Accession Number(s): [id number] cc: Tony uTrner M.D. [address] [address] Patient Name: MARTHA APODACA MRN: [id number] date: 1965 Sex: F Assigned Patient Location: CT Current Patient Location: CT Accession/Order Number: [id number] Exam Date: 07/05/2024 09:54 Report Date: 07/05/2024 15:44 At the request of: TONY TURNER Procedure: CT knee RT wo con EXAMINATION: CT knee RT wo con HISTORY: Patellar Fracture S82.009A COMPARISON: No relevant comparison available. TECHNIQUE: Multi-planar CT images were created without and/or with IV contrast according to examination type. Dose reduction techniques were achieved by using automated exposure control and/or adjustment of mA and/or kV according to patient size and/or use of iterative reconstruction technique. FINDINGS: BONES: Nondisplaced vertical fracture extending cephalad-caudad through the inferior pole of the patella involving the distal one third. SOFT TISSUES: Soft tissue swelling/edema anterior to the knee. EFFUSION: Small joint effusion. OTHER: Negative. CT/CT knee RT wo con IMPRESSION: 1. Nondisplaced fracture involving inferior pole of patella. 2. Small joint effusion. 3. Anterior soft tissue thickening; subcutaneous edema versus prepatellar bursitis. Electronically authenticated by: SARBJIT SHAHID Date: 07/05/2024 15:44 Dictated By: Sarbjit Shahid M.D. Signed By: 07/05/24 1547 DD/ 1544 TD/TT: Mechanical Systems Designer: The [address] [address] [address] Scan Report Signed Patient: KRISTLA APODACA MR#: [id number] : 1965 Acct:[id number] Age/Sex: 58 / F ADM Date: 07/05/24 Loc: CT Attending Dr: Perez Turner M.D. Ordering Physician: Tnoy Turner M.D. Date of Service: 07/05/24 Procedure(s): CT kne e RT wo con Accession Number(s): [id number] cc: Tony Turner M.D. The [place] [id number] Patient Name: MARTHA APODACA MRN: [id number] date: 1965 Sex: F Assigned Patient Location: CT Current Patient Loca tion: CT Accession/Order Numb er: [id number] Exam Date: 09:54 Report Date: 07/05/2024 15:44 At the request of: TONY TURNER Procedure: CT knee R T wo con EXAMINATION: CT knee RT wo con HISTORY: Patellar Fracture S82.009A COMPARISON: No relev ant comparison available. TECHNIQUE: Multi-gabriel johnnie CT images were created without and/or with IV contrast according to examina tion type. Dose reduction techniques were achieved by using automated exposure control and/or adjustment of mA and/or kV according to patient size and/or use of iterative reconstruction technique. FINDINGS: BONES: Nondisplaced vertical fracture extending cephalad-caudad through the inferior pole of the patella involving the distal one third. SOFT TISSUES: Soft t issue swelling/edema anterior to the knee. EFFUSION: Small join t effusion. OTHER: Negative. C T/CT knee RT wo con IMPRESSION: 1. Nondisplaced frac ture involving inferior pole of patella. 2. Small joint effusion. 3. Anterior soft tis len thickening; subcutaneous edema versus prepatellar bursitis. Electronically authenticated by: SARBJIT SHAHID Date: 07/05/2024 15:44 Dictated By: Sarbjit Shahid M.D. Signed By: 07/05/24 1547 DD/ 1544 TD/TT: Mechanical Systems Designer: RADHA, Flu A+B IH Reviewed date:11/25/2024 01:56:15 PM Interpretation: Performing Lab: Notes/Report: COVID neg FLU A neg FLU B neg Control present FOLATE Reviewed date:06/27/2024 03:32:10 PM Interpretation: Performing Lab: Notes/Report: [facility] , Folate 10.80 8.60-58.90 ng/mL Performing Lab: see note ML - [facility] LB FREE T4 Reviewed date:06/27/2024 03:32:10 PM Interpretation: Performing Lab: Notes/Report: [facility] , Free T4 1.18 0.76-1.46 ng/dL Performing Lab: see note ML - [facility] LB INFLUENZA A AND B AG Reviewed date:07/20/2024 11:24:01 AM Interpretation: Performing Lab: Notes/Report: [facility] , Influenza Virus A Antigen Negative Negative for Flu A protein antigen. Infection due to Flu A cannot be ruled out. Flu A antigen in the sample may be below the detection limit of the test. Influenza Virus B Antigen Negative Negative for Flu B protein antigen. Infection due to Flu B cannot be ruled out. Flu B antigen in the sample may be below the detection limit of the test. Performing Lab: see note ML - [facility] LB SARS-CoV-2 Ag* Reviewed date:07/20/2024 11:24:01 AM Interpretation: Performing Lab: Notes/Report: [facility] , SARS-CoV-2 Ag POSITIVE NEGATIVE This test has not been FDA cleared or approved, but has been authorized by the FDA under an Emergency Use Authorization (EUA) for use by authorized laboratories certified under CLIA that meet the requirements to perform moderate or high complexity testing. This test has been authorized only for the detection of proteins from SARS-CoV-2, not for any other viruses or pathogens. The emergency use of this test is authorized for the duration of the declaration that circumstances exist justifying the authorization of emergency use of in vitro diagnostic tests for detection and/or diagnosis of Covid-19 under section 564(b)(1) of the Act, 21 U.S.C. 360bbb-3(b)(1), unless the declaration is terminated or authorization is revoked sooner. Performing Lab: see note ML - [facility] LB CBC AUTO DIFF Reviewed date:07/20/2024 11:24:01 AM Interpretation: Performing Lab: Notes/Report: [facility] , White Blood Count 3.4 4.0-11.0 10 3/uL Red Blood Count 5.04 4.20-5.40 10 6/uL Hemoglobin 14.4 12.0-16.0 g/dL Hematocrit 45.3 36.0-48.0 % Mean Corpuscular Volume 89.9 81.0-99.0 fL Mean Corpuscular Hemoglobin 28.6 26.7-34.0 pg Mean Corpuscular HGB Conc 31.8 29.9-35.2 g/dL Red Cell Distribution Width 13.7 11.0-15.0 % Platelet Count 183 150-450 10 3/uL Mean Platelet Volume 9.2 9.5-13.5 fL Neutrophils Percent Auto 62.0 43.0-75.0 % Lymphocytes Percent Auto 29.3 20.5-60.0 % Monocytes Percent Auto 7.8 1.7-12.0 % Eosinophils Percent Auto 0.3 0.9-7.0 % Basophils Percent Auto 0.3 0.2-2.0 % Immature Granulocytes Pct Auto 0.3 0.0-0.5 % Neutrophils Absolute Auto 2.1 1.4-6.5 10 3/uL Lymphocytes Absolute Auto 1.0 1.2-3.8 10 3/uL Monocytes Absolute Auto 0.3 0.3-0.8 10 3/uL Eosinophils Absolute Auto 0.0 0.0-0.7 10 3/uL Basophils Absolute Auto 0.0 0.0-0.1 10 3/uL Immature Granulocytes Abs Auto 0.01 0.00-0.03 10 3/uL Performing Lab: see note ML - [facility] LB XR chest 2V Reviewed date:07/20/2024 11:24:01 AM Interpretation: Performing Lab: Notes/Report: Source Facility: [facility]-[address] [place] [address] [place] [address] XRay Report Signed Patient: MARTHA APODACA MR#: [id number] : 1965 Acct:[id number] Age/Sex: 58 / F ADM Date: 07/18/24 Loc: ER Attending Dr: Ordering Physician: Sanford Riggs Date of Service: 07/18/24 Procedure(s): XR chest 2V Accession Number(s): [id number] cc: Tony Turner M.D.; Sanford Riggs [place] [address] Patient Name: MARTHA APODACA MRN: [id number] date: 1965 Sex: F Assigned Patient Location: ER Current Patient Location: ER Accession/Order Number: [id number] Exam Date: 07/18/2024 23:35 Report Date: 07/19/2024 00:21 At the request of: SANFORD RIGGS Procedure: XR chest 2V EXAM: XR chest 2V HISTORY: cough COMPARISON: Chest radiograph 12/25/2023, chest CT 01/24/2024 TECHNIQUE: 2 views of the chest FINDINGS: Lungs symmetrically hyperinflated. Apical predominant hyperlucency. Right midlung chain sutures. Linear consolidation of the left lung base compatible with atelectasis versus scarring. No new focal consolidation or evidence of pulmonary edema. No pneumothorax or pleural effusion. Unremarkable cardiomediastinal contours. Biconcave thoracolumbar spinal curvature without acute osseous abnormality. Left chest wall implantable cardiac pacemaker with leads projecting in stable position. XR/XR chest 2V IMPRESSION: Emphysematous changes without acute cardiopulmonary findings. Electronically authenticated by: SARBJIT BERRIOS Date: 07/19/2024 00:21 Dictated By: Sarbjit Berrios M.D. Signed By: 07/19/2422 DD/ TD/TT: Mechanical Systems Designer: [place] [address] XRay Report Signed Patient: KRISTAL APODACA MR#: [id number] : 1965 Acct:[id number] Age/Sex: 58 / F ADM Date: 07/18/24 Loc: ER Attending Dr: Ordering Physician: Sanford Riggs Date of Service: 07/18/24 Procedure(s): XR chest 2V Accession Number(s): [id number] cc: Tony Turner M.D. ; Sanford Riggs [place] [address] Patient Name: MARTHA APODACA MRN: [id number] date: 1965 Sex: F Assigned Patient Location: ER Current Patient Loca tion: ER Accession/Order Numb er: [id number] Exam Date: 23:35 Report Date: 07/19/2024 00:21 At the request of: SANFORD RIGGS Procedure: XR chest 2V EXAM: XR chest 2V HISTORY: cough COMPARISON: Chest radiograph 12/25/2023, chest CT 01/24/2024 TECHNIQUE: 2 views o f the chest FINDINGS: Lungs symmetrically hyperinflated. Apical predominant hyperlucency. Right midlung chain sutures. Linear consolidation of the left lung base compatible with atelectasis versus scarring. No new focal consolidation or evidence of pulmonar y edema. No pneumothorax or pleural effusion. Unremarkable cardiomediastinal contours. Biconcave thoracolumbar spinal curvature without acute osseous abnormality. Left chest wall implantable cardiac pacemaker with leads projecting in stable position. X R/XR chest 2V IMPRESSION: Emphysematous change s without acute cardiopulmonary findings. Electronically authenticated by: SARBJIT BERRIOS Date: 07/19/2024 00:21 Dictated By: Sarbjit Berrios M.D. Signed By: 07/19/24 0023 DD/ 0021 TD/TT: Mechanical Systems Designer: C. Difficile PCR Reviewed date:07/21/2024 08:48:03 AM Interpretation: Performing Lab: Notes/Report: [facility] , C. Difficile PCR NEGATIVE Performing Lab: see note ML - [facility] LB CBC AUTO DIFF Reviewed date:07/21/2024 08:48:03 AM Interpretation: Performing Lab: Notes/Report: [facility] , White Blood Count 2.1 4.0-11.0 10 3/uL Red Blood Count 4.36 4.20-5.40 10 6/uL Hemoglobin 12.5 12.0-16.0 g/dL Hematocrit 39.4 36.0-48.0 % Mean Corpuscular Volume 90.4 81.0-99.0 fL Mean Corpuscular Hemoglobin 28.7 26.7-34.0 pg Mean Corpuscular HGB Conc 31.7 29.9-35.2 g/dL Red Cell Distribution Width 13.3 11.0-15.0 % Platelet Count 173 150-450 10 3/uL Mean Platelet Volume 9.3 9.5-13.5 fL Performing Lab: see note - [facility] LB PROF 14(COMP METB) Reviewed date:07/21/2024 08:48:03 AM Interpretation: Performing Lab: Notes/Report: [facility] , Sodium 145 136-145 mmol/L Potassium 3.7 3.5-5.1 mmol/L Chloride 109 98-107 mmol/L Carbon Dioxide 26.6 21.0-32.0 mmol/L Anion Gap 13.1 Glucose 104 74-106 mg/dL Blood Urea Nitrogen 10.0 7.0-18.0 mg/dL Creatinine 0.91 0.55-1.02 mg/dL Estimated GFR ( Raya >60 >=60 mL/min/1.73m 2 Estimated GFR (Non- Heidi >60 >=60 mL/min/1.73m 2 BUN Creatinine Ratio 11.0 Calcium 8.0 8.5-10.1 mg/dL Bilirubin Total 0.3 0.2-1.0 mg/dL Aspartate Amino Transferase 19 15-37 U/L Alanine Aminotransferase 16 14-59 U/L Alkaline Phosphatase 89 46-116 U/L Total Protein 5.8 6.4-8.2 g/dL Albumin Level 2.6 3.4-5.0 g/dL Globulin 3.2 Albumin Globulin Ratio 0.8 Performing Lab: see note - [facility] LB Manual Differential Reviewed date:07/21/2024 08:48:03 AM Interpretation: Performing Lab: Notes/Report: [facility] , Segmented Neutrophils % Manual 41.0 43.0-75.0 Lymphocytes Percent Manual 51.0 20.5-60.0 % Monocytes Percent Manual 6.0 1.7-12.0 % Eosinophils Percent Manual 2.0 0.9-7.0 % Basophils Percent Manual 0.0 0.2-2.0 % Segmented Neut Absolute Manual 0.86 1.4-6.5 10 3/uL Lymphocytes Absolute Manual 1.07 1.20-3.80 10 3/uL Monocytes Absolute Manual 0.12 0.30-0.80 10 3/uL Eosinophils Absolute Manual 0.04 0.00-0.70 10 3/uL Basophils Abs Manual 0.00 0.00-0.10 1 0 3/uL Performing Lab: see note - [facility] LB ECG 12 lead Reviewed date:07/22/2024 08:14:59 PM Interpretation: Performing Lab: Notes/Report: Source Facility: [place] [address] [place] [address] Electrocardiograph Report Signed Patient: MARTHA APODACA MR#: [id number] : 1965 Acct:[id number] Age/Sex: 58 / F ADM Date: 07/19/24 Loc: MS 202- Attending Dr: Tony Turner M.D. Ordering Physician: Tony Turner M.D. Date of Service: 07/21/24 Procedure(s): ECG 12 lead Accession Number(s): [id number] cc: [facility] Test Date: 2024-07-21 Pat Name: MARTHA APODACA Department: Room: Gender: Female Traffic I Manager: : 1965 Requested By: TONY TURNER Order Number: [id number] Reading MD: TONY TURNER Measurements Intervals Reading Rate: 76 P: 108 MD: 179 QRS: 80 QRSD: 73 T: 74 QT: 373 QTc: 419 Interpretive Statements ELECTRONIC ATRIAL PACEMAKER LOW QRS VOLTAGE IN PRECORDIAL LEADS [QRS DEFLECTION < 1.0 mV IN CHEST LEADS] ABNORMAL RHYTHM ECG Compared to ECG 02/20/2024 10:39:58 Low QRS voltage now present Right-axis deviation no longer present Electronically Signed On 07-22-2024 6:55:28 EDT by TONY TURNER Dictated By: Tony Turner M.D. Signed By: 07/22/24 0655 DD/ 1227 TD/TT: Mechanical Systems Designer: [place] [address] Electrocardiograph Report Signed Patient: KRISTAL APODACA MR#: [id number] : 1965 Acct:[id number] Age/Sex: 58 / F ADM Date: 07/19/24 Loc: MS - Attending Dr: Perez Turner M.D. Ordering Physician: Tony Turner M.D. Date of Service: 07/21/24 Procedure(s): ECG 12 lead Accession Number(s): [id number] cc: [facility] Test Date: 2024-07-21 Pat Name: MARTHA GARCÍA Department: 75 Room: Gender: Female Traffic I Manager: : 1965 Axel izquierdo By: TONY TURNER Order Number: [id number] Reading MD: TONY TURNER Measurements Intervals Reading Rate: 76 P: 108 MD: 179 QRS: 80 QRSD: 73 T: 74 QT: 373 QTc: 419 Interpretive Statements ELECTRONIC ATRIAL PACEMAKER LOW QRS VOLTAGE IN PRECORDIAL LEADS [QRS DEFLECTION < 1.0 mV IN CHEST LEADS] ABNORMAL RHYTHM ECG Compared to ECG 02/20/2024 10:39:58 Low QRS voltage now present Right-axis deviation no longer present Electronically Elma d On 07-22-2024 6:55:28 EDT by TONY TURNER Dictated By: French Turner M.D. Signed By: 07/22/24 0655 DD/ 1227 TD/TT: Mechanical Systems Designer: CBC AUTO DIFF Reviewed date:07/22/2024 08:14:59 PM Interpretation: Performing Lab: Notes/Report: [facility] , White Blood Count 3.2 4.0-11.0 10 3/uL Red Blood Count 4.28 4.20-5.40 10 6/uL Hemoglobin 12.5 12.0-16.0 g/dL Hematocrit 38.1 36.0-48.0 % Mean Corpuscular Volume 89.0 81.0-99.0 fL Mean Corpuscular Hemoglobin 29.2 26.7-34.0 pg Mean Corpuscular HGB Conc 32.8 29.9-35.2 g/dL Red Cell Distribution Width 13.3 11.0-15.0 % Platelet Count 164 150-450 10 3/uL Mean Platelet Volume 9.3 9.5-13.5 fL Neutrophils Percent Auto 63.3 43.0-75.0 % Lymphocytes Percent Auto 28.4 20.5-60.0 % Monocytes Percent Auto 8.3 1.7-12.0 % Eosinophils Percent Auto 0.0 0.9-7.0 % Basophils Percent Auto 0.0 0.2-2.0 % Immature Granulocytes Pct Auto 0.0 0.0-0.5 % Neutrophils Absolute Auto 2.1 1.4-6.5 10 3/uL Lymphocytes Absolute Auto 0.9 1.2-3.8 10 3/uL Monocytes Absolute Auto 0.3 0.3-0.8 10 3/uL Eosinophils Absolute Auto 0.0 0.0-0.7 10 3/uL Basophils Absolute Auto 0.0 0.0-0.1 10 3/uL Immature Granulocytes Abs Auto 0.00 0.00-0.03 10 3/uL Performing Lab: see note ML - [facility] LB PROF 14(COMP METB) Reviewed date:07/22/2024 08:14:59 PM Interpretation: Performing Lab: Notes/Report: [facility] , Sodium 142 136-145 mmol/L Potassium 3.4 3.5-5.1 mmol/L Chloride 108 98-107 mmol/L Carbon Dioxide 26.7 21.0-32.0 mmol/L Anion Gap 10.7 Glucose 118 74-106 mg/dL Blood Urea Nitrogen 14.0 7.0-18.0 mg/dL Creatinine 0.97 0.55-1.02 mg/dL Estimated GFR ( Raya >60 >=60 mL/min/1.73m 2 Estimated GFR (Non- Heidi 59 >=60 mL/min/1.73m 2 BUN Creatinine Ratio 14.4 Calcium 8.7 8.5-10.1 mg/dL Bilirubin Total 0.2 0.2-1.0 mg/dL Aspartate Amino Transferase 21 15-37 U/L Alanine Aminotransferase 15 14-59 U/L Alkaline Phosphatase 87 46-116 U/L Total Protein 6.0 6.4-8.2 g/dL Albumin Level 2.7 3.4-5.0 g/dL Globulin 3.3 Albumin Globulin Ratio 0.8 Performing Lab: see note ML - [facility] LB MAGNESIUM Reviewed date:11/25/2024 08:17:49 PM Interpretation: Performing Lab: Notes/Report: [facility] , Magnesium 2.1 1.8-2.4 mg/dL Performing Lab: see note - [facility] LB PROF 14(COMP METB) Reviewed date:11/25/2024 01:56:15 PM Interpretation: Performing Lab: Notes/Report: [facility] , Sodium 136 136-145 mmol/L Potassium 3.8 3.5-5.1 mmol/L Chloride 99 98-107 mmol/L Carbon Dioxide 26.2 21.0-32.0 mmol/L Anion Gap 14.6 Glucose 108 74-106 mg/dL Blood Urea Nitrogen 19.0 7.0-18.0 mg/dL Creatinine 1.40 0.55-1.02 mg/dL Estimated GFR ( Raya 46 >=60 mL/min/1.73m 2 Estimated GFR (Non- Heidi 38 >=60 mL/min/1.73m 2 BUN Creatinine Ratio 13.6 Calcium 8.0 8.5-10.1 mg/dL Bilirubin Total 0.4 0.2-1.0 mg/dL Aspartate Amino Transferase 109 15-37 U/L Alanine Aminotransferase 85 14-59 U/L Alkaline Phosphatase 106 46-116 U/L Total Protein 7.0 6.4-8.2 g/dL Albumin Level 3.5 3.4-5.0 g/dL Globulin 3.5 Albumin Globulin Ratio 1.0 Performing Lab: see note ML - [facility] LB CBC AUTO DIFF Reviewed date:11/26/2024 01:37:16 PM Interpretation: Performing Lab: Notes/Report: [facility] , White Blood Count 2.0 4.0-11.0 10 3/uL Red Blood Count 4.52 4.20-5.40 10 6/uL Hemoglobin 12.8 12.0-16.0 g/dL Hematocrit 40.6 36.0-48.0 % Mean Corpuscular Volume 89.8 81.0-99.0 fL Mean Corpuscular Hemoglobin 28.3 26.7-34.0 pg Mean Corpuscular HGB Conc 31.5 29.9-35.2 g/dL Red Cell Distribution Width 13.4 11.0-15.0 % Platelet Count 144 150-450 10 3/uL Mean Platelet Volume 9.5 9.5-13.5 fL Performing Lab: see note - [facility] LB PROF 14(COMP METB) Reviewed date:11/26/2024 01:37:16 PM Interpretation: Performing Lab: Notes/Report: [facility] , Sodium 140 136-145 mmol/L Potassium 4.1 3.5-5.1 mmol/L Chloride 107 98-107 mmol/L Carbon Dioxide 24.4 21.0-32.0 mmol/L Anion Gap 12.7 Glucose 131 74-106 mg/dL Blood Urea Nitrogen 17.0 7.0-18.0 mg/dL Creatinine 1.00 0.55-1.02 mg/dL Estimated GFR ( Raya >60 >=60 mL/min/1.73m 2 Estimated GFR (Non- Heidi 57 >=60 mL/min/1.73m 2 BUN Creatinine Ratio 17.0 Calcium 7.6 8.5-10.1 mg/dL Bilirubin Total 0.2 0.2-1.0 mg/dL Aspartate Amino Transferase 66 15-37 U/L Alanine Aminotransferase 59 14-59 U/L Alkaline Phosphatase 90 46-116 U/L Total Protein 5.9 6.4-8.2 g/dL Albumin Level 2.8 3.4-5.0 g/dL Globulin 3.1 Albumin Globulin Ratio 0.9 Performing Lab: see note ML - [facility] LB Manual Differential Reviewed date:11/26/2024 01:37:16 PM Interpretation: Performing Lab: Notes/Report: [facility] , Segmented Neutrophils % Manual 85.0 43.0-75.0 Lymphocytes Percent Manual 8.0 20.5-60.0 % Monocytes Percent Manual 7.0 1.7-12.0 % Eosinophils Percent Manual 0.0 0.9-7.0 % Basophils Percent Manual 0.0 0.2-2.0 % Segmented Neut Absolute Manual 1.70 1.4-6.5 10 3/uL Lymphocytes Absolute Manual 0.16 1.20-3.80 10 3/uL Monocytes Absolute Manual 0.14 0.30-0.80 10 3/uL Eosinophils Absolute Manual 0.00 0.00-0.70 10 3/uL Basophils Abs Manual 0.00 0.00-0.10 1 0 3/uL Performing Lab: see note ML - [facility] LB Salmonella/Shigella Screen Reviewed date:12/01/2024 12:42:02 PM Interpretation: Performing Lab: Notes/Report: [facility] , Salmonella/Shigella Screen See Below For Report Salmonella/Shigella Screen Salmonella/Shigella Screen Specimen has been received and testing has been initiated. Salmonella/Shigella Screen Salmonella/Shigella Screen Salmonella/Shigella Screen Salmonella/Shigella Screen No Salmonella or Shigella recovered. Salmonella/Shigella Screen Performing Lab: see note LC - [facility] LB Occult Blood* Reviewed date:11/26/2024 01:37:16 PM Interpretation: Performing Lab: Notes/Report: [facility] , Occult Blood Negative Performing Lab: see note - [facility] LB E coli Shiga Toxin EIA Reviewed date:12/01/2024 12:42:02 PM Interpretation: Performing Lab: Notes/Report: [facility] , E coli Shiga Toxin EIA See Below For Report E coli Shiga Toxin EIA E coli Shiga Toxin EIA Negative E coli Shiga Toxin EIA E coli Shiga Toxin EIA Performed at: [facility] E coli Shiga Toxin EIA E coli Shiga Toxin EIA [address] [place] [address] [id number] E coli Shiga Toxin EIA E coli Shiga Toxin EIA Returned Materials Inspector: Dov Chapa PhD, Phone: [phone] E coli Shiga Toxin EIA Performing Lab: see note LC - [facility] LB SEE REPORT - Community Board Member Id information not found for OBX-specific creative services producer legend CBC AUTO DIFF Reviewed date:11/27/2024 12:23:08 PM Interpretation: Performing Lab: Notes/Report: [facility] , White Blood Count 3.5 4.0-11.0 10 3/uL Red Blood Count 4.56 4.20-5.40 10 6/uL Hemoglobin 13.0 12.0-16.0 g/dL Hematocrit 40.9 36.0-48.0 % Mean Corpuscular Volume 89.7 81.0-99.0 fL Mean Corpuscular Hemoglobin 28.5 26.7-34.0 pg Mean Corpuscular HGB Conc 31.8 29.9-35.2 g/dL Red Cell Distribution Width 13.2 11.0-15.0 % Platelet Count 147 150-450 10 3/uL Mean Platelet Volume 9.6 9.5-13.5 fL Neutrophils Percent Auto 80.2 43.0-75.0 % Lymphocytes Percent Auto 15.5 20.5-60.0 % Monocytes Percent Auto 4.0 1.7-12.0 % Eosinophils Percent Auto 0.0 0.9-7.0 % Basophils Percent Auto 0.0 0.2-2.0 % Immature Granulocytes Pct Auto 0.3 0.0-0.5 % Neutrophils Absolute Auto 2.8 1.4-6.5 10 3/uL Lymphocytes Absolute Auto 0.6 1.2-3.8 10 3/uL Monocytes Absolute Auto 0.1 0.3-0.8 10 3/uL Eosinophils Absolute Auto 0.0 0.0-0.7 10 3/uL Basophils Absolute Auto 0.0 0.0-0.1 10 3/uL Immature Granulocytes Abs Auto 0.01 0.00-0.03 10 3/uL Performing Lab: see note ML - [facility] LB PROF 14(COMP METB) Reviewed date:11/27/2024 12:23:08 PM Interpretation: Performing Lab: Notes/Report: [facility] , Sodium 143 136-145 mmol/L Potassium 3.7 3.5-5.1 mmol/L Chloride 107 98-107 mmol/L Carbon Dioxide 28.0 21.0-32.0 mmol/L Anion Gap 11.7 Glucose 144 74-106 mg/dL Blood Urea Nitrogen 14.0 7.0-18.0 mg/dL Creatinine 0.89 0.55-1.02 mg/dL Estimated GFR ( Raya >60 >=60 mL/min/1.73m 2 Estimated GFR (Non- Heidi >60 >=60 mL/min/1.73m 2 BUN Creatinine Ratio 15.7 Calcium 8.5 8.5-10.1 mg/dL Bilirubin Total 0.2 0.2-1.0 mg/dL Aspartate Amino Transferase 46 15-37 U/L Alanine Aminotransferase 43 14-59 U/L Alkaline Phosphatase 77 46-116 U/L Total Protein 5.9 6.4-8.2 g/dL Albumin Level 3.0 3.4-5.0 g/dL Globulin 2.9 Albumin Globulin Ratio 1.0 Performing Lab: see note ML - [facility] LB LIPID PROFILE Reviewed date:11/29/2024 12:59:18 PM Interpretation: Performing Lab: Notes/Report: [facility] , Triglycerides 309 <=150 mg/dL Cholesterol 160 <=200 mg/dL HDL Cholesterol 33 40-60 mg/dL > or =60 mg/dl - LOW CARDIOVASCULAR RISK <40 mg/dl - HIGH CARDIOVASCULAR RISK LDL Cholesterol Calculated 66.0 <100 mg/dl OPTIMAL 100-129 mg/dl NEAR OR ABOVE OPTIMAL 130-159 mg/dl BORDERLINE HIGH 160-189 mg/dl HIGH >190 mg/dl VERY HIGH VLDL CHOLESTEROL 61.8 Chol HDL Ratio 4.8 3.3 - 4.4 LOW RISK 4.4 - 7.1 AVERAGE RISK 7.1 - 11.0 MODERATE RISK >11.0 HIGH RISK Performing Lab: see note ML - [facility] LB PROF 14(COMP METB) Reviewed date:11/29/2024 12:59:18 PM Interpretation: Performing Lab: Notes/Report: [facility] , Sodium 144 136-145 mmol/L Potassium 3.0 3.5-5.1 mmol/L Chloride 105 98-107 mmol/L Carbon Dioxide 31.4 21.0-32.0 mmol/L Anion Gap 10.6 Glucose 67 74-106 mg/dL Blood Urea Nitrogen 23.0 7.0-18.0 mg/dL Creatinine 1.08 0.55-1.02 mg/dL Estimated GFR ( Raya >60 >=60 mL/min/1.73m 2 Estimated GFR (Non- Heidi 52 >=60 mL/min/1.73m 2 BUN Creatinine Ratio 21.3 Calcium 8.4 8.5-10.1 mg/dL Bilirubin Total 0.7 0.2-1.0 mg/dL Aspartate Amino Transferase 47 15-37 U/L Alanine Aminotransferase 38 14-59 U/L Alkaline Phosphatase 82 46-116 U/L Total Protein 6.5 6.4-8.2 g/dL Albumin Level 3.5 3.4-5.0 g/dL Globulin 3.0 Albumin Globulin Ratio 1.2 Performing Lab: see note ML - [facility] LB DRUG SCREEN RAPID (URINE) Reviewed date:12/01/2024 08:34:44 PM Interpretation: Performing Lab: Notes/Report: [facility] , Cannabinoid Screen Urine NEGATIVE NEGATIVE Phencyclidine Screen Urine NEGATIVE NEGATIVE Cocaine Screen Urine NEGATIVE NEGATIVE Methamphetamines Screen Urine NEGATIVE NEGATIVE Opiate Screen Urine NEGATIVE NEGATIVE Amphetamine Screen Urine NEGATIVE NEGATIVE Benzodiazepines Screen Urine NEGATIVE NEGATIVE Tricyclic Antidepressant Urine NEGATIVE NEGATIVE Methadone Screen Urine NEGATIVE NEGATIVE Barbiturates Screen Urine NEGATIVE NEGATIVE Oxycodone Screen Urine NEGATIVE NEGATIVE Buprenorphine Screen Urine NEGATIVE NEGATIVE DRUG CLASS TEST SYSTEM CUT-OFF CONCENTRATIONS ARE FOLLOWS: AMP (Amphetamine): 500 ng/mL BAR (Barbiturates): 200 ng/mL BZO (Benzodiazepines): 150 ng/mL BUP (Buprenorphine): 10 ng/mL INDRA (Cocaine): 150 ng/mL mAMP (Methamphetamine): 500 ng/mL MTD (Methadone): 200 ng/mL OPI (Opiates): 100 ng/mL OXY (Oxycodone): 100 ng/mL PCP (Phencyclidine): 25 ng/mL THC (Cannabinoids): 50 ng/mL TCA (Trycyclic Antidepressants): 300 ng/mL Performing Lab: see note ML - [facility] XR pelvis 1-2V Reviewed date:12/11/2024 12:46:41 PM Interpretation: Performing Lab: Notes/Report: Source Facility: [place] [address] [place] [address] XRay Report Signed Patient: MARTHA APODACA MR#: [id number] : 1965 Acct:[id number] Age/Sex: 59 / F ADM Date: 12/11/24 Loc: RAD Attending Dr: Tony Turner M.D. Ordering Physician: Tony Turner M.D. Date of Service: 12/11/24 Procedure(s): XR pelvis 1-2V Accession Number(s): [id number] cc: Tony Turner M.D. [place] [address] Patient Name: MARTHA APODACA MRN: [id number] date: 1965 Sex: F Assigned Patient Location: [facility] Current Patient Location: [facility] Accession/Order Number: [id number] Exam Date: 12/11/2024 10:31 Report Date: 12/11/2024 10:40 At the request of: TONY TURNER MD Procedure: XR pelvis 1-2V CLINICAL DATA: Low back pain LUMBAR SPINE -4 views: COMPARISON: CT 12/20/2023 AP, lateral and both oblique views of the lumbosacral junction were obtained. There is osteopenia. 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 Mild wedge deformity at the superior endplate of L1 is again noted. There is no acute fracture. Alignment is maintained on the lateral view. The scoliotic curvature and centering on the lateral view slightly limited evaluation of the disc spaces. There is at least some disc space narrowing at L4-5. Mild endplate spurring and facet hypertrophy are present. The SI joints are intact. There are no paraspinal soft tissue abnormalities. XR/XR pelvis 1-2V IMPRESSION: OSTEOPENIA, SCOLIOSIS AND MILD DEGENERATIVE CHANGES. OLD COMPRESSION DEFORMITY AT L1. AP PELVIS COMPARISON: 12/27/[address] 12/20/2023 There is osteopenia. No acute fractures are identified. The hip joint spaces are maintained. There is no prominent hypertrophy. The SI joints are intact. Bone islands are again seen at the left sacrum, ilium and pubic symphysis. There is levoscoliotic curvature and degenerative change at the lower imaged lumbar spine. IMPRESSION: NO ACUTE BONY FINDINGS. Impression dictated by: Lou Young M.D.12/11/2024 10:40 AM Dictation Location: [place] [address] Electronically authenticated by: [id number] Y Date: 12/11/2024 10:40 Dictated By: Lou Young M.D. Signed By: 12/11/24 1043 DD/ 1040 TD/TT: Mechanical Systems Designer: [place] [address] XRay Report Signed Patient: KRISTAL APODACA MR#: [id number] : 1965 Acct:[id number] Age/Sex: 59 / F ADM Date: 12/11/24 Loc: RAD Attending Dr: Perez Turner M.D. Ordering Physician: Tony Turner M.D. Date of Service: 12/11/24 Procedure(s): XR pel vis 1-2V Accession Number(s): [id number] cc: Tony Turner M.D. [address] [address] Patient Name: MARTHA APODACA MRN: [id number] date: 1965 Sex: F Assigned Patient Location: RAD Current Patient Loca tion: RAD Accession/Order Numb er: [id number] Exam Date: 12/11/2024 10:31 Report Date: 12/11/2024 10:40 At the request of: TONY TURNER MD Procedure: XR pelvis 1-2V CLINICAL DATA: Low b ack pain LUMBAR SPINE -4 views: COMPARISON: CT 12/20/2023 AP, lateral and both oblique views of the lumbosacral junction were obtained. There is osteopenia. 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 Mild wedge deformity at the superior endplate of L1 is again noted. There is no acute fracture. Alignment is maintained on the lateral view. The scoliotic curvature and centering on the lateral view slightly limited evaluation of the di sc spaces. There is at least some disc space narrowing at L4-5. Mild endplate spurring and facet hypertrophy are present. The SI joints are intact. T here are no paraspinal soft tissue abnormalities. X R/XR pelvis 1-2V IMPRESSION: OSTEOPENIA, SCOLIOSI S AND MILD DEGENERATIVE CHANGES. OLD COMPRESSION DEFO RMITY AT L1. AP PELVIS COMPARISON: and CT 12/20/2023 There is osteopenia. No acute fractures are identified. The hip joint spaces are maintained. Ther e is no prominent hypertrophy. The SI joints are intact. Bone islands are aga in seen at the left sacrum, ilium and pubic symphysis. There is levoscoliot ic curvature and degenerative change at the lower imaged lumbar spine. IMPRESSION: NO ACUTE BONY FINDINGS. Impression dictated by: Lou Young M.D.12/11/2024 10:40 AM Dictation Location: [place] [address] Electronically authenticated by: [id number] Y Date: 12/11/2024 10:40 Dictated By: Lou Young M.D. Signed By: 12/11/24 1043 DD/ 1040 TD/TT: Mechanical Systems Designer: XR lumbar spine min 4V Reviewed date:12/11/2024 12:46:41 PM Interpretation: Performing Lab: Notes/Report: Source Facility: [facility] [place] [address] [place] [address] XRay Report Signed Patient: MARTHA APODACA MR#: [id number] : 1965 Acct:[id number] Age/Sex: 59 / F ADM Date: 12/11/24 Loc: [facility] Attending Dr: Tony Turner M.D. Ordering Physician: Tony Turner M.D. Date of Service: 12/11/24 Procedure(s): XR lumbar spine min 4V Accession Number(s): [id number] cc: Tony Turner M.D. [place] [address] Patient Name: MARTHA APODACA MRN: [id number] date: 1965 Sex: F Assigned Patient Location: [facility] Current Patient Location: [facility] Accession/Order Number: [id number] Exam Date: 12/11/2024 10:31 Report Date: 12/11/2024 10:40 At the request of: TONY TURNER MD Procedure: XR pelvis 1-2V CLINICAL DATA: Low back pain LUMBAR SPINE -4 views: COMPARISON: CT 12/20/2023 AP, lateral and both oblique views of the lumbosacral junction were obtained. There is osteopenia. 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 Mild wedge deformity at the superior endplate of L1 is again noted. There is no acute fracture. Alignment is maintained on the lateral view. The scoliotic curvature and centering on the lateral view slightly limited evaluation of the disc spaces. There is at least some disc space narrowing at L4-5. Mild endplate spurring and facet hypertrophy are present. The SI joints are intact. There are no paraspinal soft tissue abnormalities. XR/XR lumbar spine min 4V IMPRESSION: OSTEOPENIA, SCOLIOSIS AND MILD DEGENERATIVE CHANGES. OLD COMPRESSION DEFORMITY AT L1. AP PELVIS COMPARISON: 12/27/[address] 12/20/2023 There is osteopenia. No acute fractures are identified. The hip joint spaces are maintained. There is no prominent hypertrophy. The SI joints are intact. Bone islands are again seen at the left sacrum, ilium and pubic symphysis. There is levoscoliotic curvature and degenerative change at the lower imaged lumbar spine. IMPRESSION: NO ACUTE BONY FINDINGS. Impression dictated by: Lou Young M.D.12/11/2024 10:40 AM Dictation Location: [place] [address] Electronically authenticated by: [id number] Y Date: 12/11/2024 10:40 Dictated By: Lou Young M.D. Signed By: 12/11/24 1043 DD/ 1040 TD/TT: Mechanical Systems Designer: [place] [address] XRay Report Signed Patient: KRISTAL APODACA MR#: [id number] : 1965 Acct:[id number] Age/Sex: 59 / F ADM Date: 12/11/24 Loc: RAD Attending Dr: Perez Turner M.D. Ordering Physician: Tony Turner M.D. Date of Service: 12/11/24 Procedure(s): XR lum bar spine min 4V Accession Number(s): [id number] cc: Tony Turner M.D. [place] [address] Patient Name: MARTHA APODACA MRN: [id number] date: 1965 Sex: F Assigned Patient Location: [facility] Current Patient Loca tion: RAD Accession/Order Numb er: [id number] Exam Date: 12/11/2024 10:31 Report Date: 12/11/2024 10:40 At the request of: TONY TURNER MD Procedure: XR pelvis 1-2V CLINICAL DATA: Low b ack pain LUMBAR SPINE -4 views: COMPARISON: CT 12/20/2023 AP, lateral and both oblique views of the lumbosacral junction were obtained. There is osteopenia. 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 Mild wedge deformity at the superior endplate of L1 is again noted. There is no acute fracture. Alignment is maintained on the lateral view. The scoliotic curvature and centering on the lateral view slightly limited evaluation of the di sc spaces. There is at least some disc space narrowing at L4-5. Mild endplate spurring and facet hypertrophy are present. The SI joints are intact. T here are no paraspinal soft tissue abnormalities. X R/XR lumbar spine min 4V IMPRESSION: OSTEOPENIA, SCOLIOSI S AND MILD DEGENERATIVE CHANGES. OLD COMPRESSION DEFO RMITY AT L1. AP PELVIS COMPARISON: [address] 12/20/2023 There is osteopenia. No acute fractures are identified. The hip joint spaces are maintained. Ther e is no prominent hypertrophy. The SI joints are intact. Bone islands are aga in seen at the left sacrum, ilium and pubic symphysis. There is levoscoliot ic curvature and degenerative change at the lower imaged lumbar spine. IMPRESSION: NO ACUTE BONY FINDINGS. Impression dictated by: Lou Young M.D.12/11/2024 10:40 AM Dictation Location: [place] [address] Electronically authenticated by: [id number] Y Date: 12/11/2024 10:40 Dictated By: Lou Young M.D. Signed By: 12/11/24 1043 DD/ 1040 TD/TT: Mechanical Systems Designer: GRETCH[facility] echo doppler complete Reviewed date:12/29/2024 04:02:12 PM Interpretation: Performing Lab: Notes/Report: Source Facility: [place] [address] Cardiology Report Signed Patient: MARTHA APODACA MR#: [id number] : 1965 Acct:[id number] Age/Sex: 59 / F ADM Date: 12/26/24 Loc: CARD Attending Dr: Darryl Goode NP Ordering Physician: Darryl Goode NP Date of Service: 12/26/24 Procedure(s): CA echo doppler complete Accession Number(s): [id number] cc: Tony Turner M.D.; Darryl Goode NP Patient Name: MARTHA APODACA MR#: [id number] : 1965 Exam Date: 12/26/2024 Ordering Doctor: DARRYL GOODE ECHOCARDIOGRAM REPORT PROCEDURE: CA ECHO DOPPLER COMPLETE INDICATIONS: Tricuspid regurgitation, COPD, hypertension, pacemaker COMPARISON: None. DESCRIPTION: COMPLETE ECHOCARDIOGRAM Real-time transthoracic echocardiography with 2D, M-mode, spectral and color flow Doppler performed. QUALITY: Technical quality was good. LEFT VENTRICLE: Normal chamber size. Normal left ventricular wall thickness. Normal systolic function. LV EF: Normal left ventricular ejection fraction, (60-65%). DIASTOLIC: Normal diastolic function. ATRIAL SEPTUM: Visually appears intact. LEFT ATRIUM: Normal chamber size. RIGHT ATRIUM: Normal chamber size. RIGHT VENTRICLE: Normal chamber size. Normal systolic function. Pacer wire present. TRICUSPID VALVE: Normal mobility and thickness. No stenosis with mild to moderate regurgitation. Doppler studies reveal mildly (35-45) elevated right sided pressures. RVSP 37 mmHg MITRAL VALVE: Normal mobility and thickness. No evidence of mitral valve stenosis. There is no mitral annular calcification. Mild mitral regurgitation. AORTIC VALVE: Normal trileaflet appearance. No visible sclerosis. Normal leaflet mobility. No evidence of aortic valve stenosis. No aortic regurgitation. AORTIC ROOT: Normal diameter and appearance, measuring 2.8 cm. Ascending aorta is normal in size, measuring 2.1 cm. PULMONIC VALVE: Normal thickness and mobility. No stenosis. No regurgitation. PERICARDIUM: No evidence of pericardial effusion. IVC: Collapses with inspirations. PLEURA: CONCLUSION: 1. Normal left ventricular size and systolic function. Estimated LVEF is 60 to 65%. 2. Normal right ventricular size and systolic function. 3. Mild to moderate tricuspid regurgitation. 4. Mild mitral regurgitation. 5. Mildly elevated right-sided pressures. RVSP is 37 mmHg. 6. No pericardial effusion. Adult Echocardiography Procedure Report Left Ventricle LVEDD (3.7 - 5.6 cm): 3.64 cm LVESD (2.2 - 4.0 cm): 2.62 cm LVIVS thickness (0.6 - 1.2 cm): 0.67 cm LVPW thickness (0.5 - 1.0 cm): 0.55 cm e': 0.12 m/s E - e': 6.01 LVOT Max Gradient: 3.87 mm[Hg] LVOT Area (cm2): 0.98 m/s Peak Velocity (LVOT): 0.98 m/s Mean Velocity (LVOT): 0.63 m/s LVOT Diameter 1.68 cm Left Atrium LA Volume Index (2D A2C): 18.92 ml/m2 Left Atrium Systolic Dimension: 3.00 cm Mitral Valve MV E to A Ratio: 0.93 Mitral Valve A-Wave Peak Velocity: 0.80 m/s Mitral Valve E-Wave Peak Velocity: 0.74 m/s Right Ventricle Aorta AO Root Diam: 2.81 cm Ascending Ao Diam: 2.10 cm Aortic Valve AoV Area (Peak Ganga): 1.92 cm2, 1.92 cm2 AoV Area (VTI): 1.70 cm2, 1.70 cm2 Peak Velocity(Antegrade Flow): 1.13 m/s Peak Gradient(Antegrade Flow): 5.08 mm[Hg] Mean Velocity(Antegrade Flow): 0.73 m/s Mean Gradient(Antegrade Flow): 2.52 mm[Hg] Velocity Time Integral: 24.71 cm Tricuspid Valve Peak Velocity (Regurgitant Flow): 2.76 m/s, 2.91 m/s, 2.70 m/s Pulmonic Valve Mean Gradient: 1.15 mm[Hg] Mean Velocity: 0.49 m/s Peak Velocity: 0.79 m/s, 0.81 m/s Peak Gradient: 2.62 mm[Hg], 2.50 mm[Hg] Right Atrium Right Atrium Systolic Pressure: 16.06 ml, 16.06 ml Dictated by: Luis Armando Dias M.D. on 12/27/2024 at 17:11 Approved by: Luis Armando Dias M.D. on 12/27/2024 at 17:24 Dictated By: LUIS ARMANDO DIAS Signed By: 12/27/245 DD/ 23 TD/TT: Mechanical Systems Designer: [place] [address] Cardiology Report Signed Patient: KRISTAL APODACA MR#: [id number] : 1965 Acct:[id number] Age/Sex: 59 / F ADM Date: 12/26/24 Loc: CARD Attending Dr: Darryl dickey NP Ordering Physician: Darryl Goode NP Date of Service: 12/26/24 Procedure(s): CA ech o doppler complete Accession Number(s): [id number] cc: Tony Turner M.D. ; Darryl Goode NP Patient Name: MARTHA APODACA MR#: [id number] : 1965 Exam Date: 12/26/2024 Ordering Doctor: DONTE GOODE ECHOCARDIOGRAM REPORT PROCEDURE: CA ECHO DOPPLER COMPLETE INDICATIONS: Tricusp id regurgitation, COPD, hypertension, pacemaker COMPARISON: None. DESCRIPTION: COMPLET E ECHOCARDIOGRAM Real-time transthoracic echocardiography wit h 2D, M-mode, spectral and color flow Doppler performed. QUALITY: Technical quality was good. LEFT VENTRICLE: Norm al chamber size. Normal left ventricular wall thickness. Normal systolic function. LV EF: Normal left ventricular ejection fraction, (60-65%). DIASTOLIC: Normal diastolic function. ATRIAL SEPTUM: Visua lly appears intact. LEFT ATRIUM: Normal chamber size. RIGHT ATRIUM: Normal chamber size. RIGHT VENTRICLE: Nor mal chamber size. Normal systolic function. Pacer wire present. TRICUSPID VALVE: Nor mal mobility and thickness. No stenosis with mild to moderate regurgitati on. Doppler studies reveal mildly (35-45) elevated right sided pressures. RVS P 37 mmHg MITRAL VALVE: Normal mobility and thickness. No evidence of mitral valve stenosis. There is n o mitral annular calcification. Mild mitral regurgitation. AORTIC VALVE: Normal trileaflet appearance. No visible sclerosis. Normal leaflet mobility. No evidence of aortic valve stenosis. No aortic regurgitation. AORTIC ROOT: Normal diameter and appearance, measuring 2.8 cm. Ascending aorta is normal in s ize, measuring 2.1 cm. PULMONIC VALVE: Norm al thickness and mobility. No stenosis. No regurgitation. PERICARDIUM: No evid ence of pericardial effusion. IVC: Collapses with inspirations. PLEURA: CONCLUSION: 1. Normal left ventricular size and systolic function. Estimated LVEF is 60 to 65%. 2. Normal right ventricular size and systolic function. 3. Mild to moderate tricuspid regurgitation. 4. Mild mitral regurgitation. 5. Mildly elevated right-sided pressures. RVSP is 37 mmHg. 6. No pericardial effusion. Adult Echocardiograp hy Procedure Report Left Ventricle LVEDD (3.7 - 5.6 cm) : 3.64 cm LVESD (2.2 - 4.0 cm) : 2.62 cm LVIVS thickness (0.6 - 1.2 cm): 0.67 cm LVPW thickness (0.5 - 1.0 cm): 0.55 cm e': 0.12 m/s E - e': 6.01 LVOT Max Gradient: 3 .87 mm[Hg] LVOT Area (cm2): 0.98 m/s Peak Velocity (LVOT) : 0.98 m/s Mean Velocity (LVOT) : 0.63 m/s LVOT Diameter 1.68 cm Left Atrium LA Volume Index (2D A2C): 18.92 ml/m2 Left Atrium Systolic Dimension: 3.00 cm Mitral Valve MV E to A Ratio: 0.93 Mitral Valve A-Wave Peak Velocity: 0.80 m/s Mitral Valve E-Wave Peak Velocity: 0.74 m/s Right Ventricle Aorta AO Root Diam: 2.81 cm Ascending Ao Diam: 2 .10 cm Aortic Valve AoV Area (Peak Ganga): 1.92 cm2, 1.92 cm2 AoV Area (VTI): 1.70 cm2, 1.70 cm2 Peak Velocity(Antegr matthew Flow): 1.13 m/s Peak Gradient(Antegr matthew Flow): 5.08 mm[Hg] Mean Velocity(Antegr matthew Flow): 0.73 m/s Mean Gradient(Antegr matthew Flow): 2.52 mm[Hg] Velocity Time Integr al: 24.71 cm Tricuspid Valve Peak Velocity (Regurgitant Flow): 2.76 m/s, 2.91 m/s, 2.70 m/s Pulmonic Valve Mean Gradient: 1.15 mm[Hg] Mean Velocity: 0.49 m/s Peak Velocity: 0.79 m/s, 0.81 m/s Peak Gradient: 2.62 mm[Hg], 2.50 mm[Hg] Right Atrium Right Atrium Systoli c Pressure: 16.06 ml, 16.06 ml Dictated by: Luis Armando Dias M.D. on 12/27/2024 at 17:11 Approved by: Luis Armando Dias M.D. on 12/27/2024 at 17:24 Dictated By: LUIS ARMANDO DIAS Signed By: 12/27/24 1725 DD/ 23 TD/TT: Mechanical Systems Designer: [place] Reviewed date:02/20/2025 12:37:15 PM Interpretation: Performing Lab: Notes/Report: [facility] , Magnesium 2.6 1.8-2.4 mg/dL Performing Lab: see note ML - [facility] LB PROF 14(COMP METB) Reviewed date:02/20/2025 12:37:15 PM Interpretation: Performing Lab: Notes/Report: [facility] , Sodium 143 136-145 mmol/L Potassium 4.0 3.5-5.1 mmol/L Chloride 106 98-107 mmol/L Carbon Dioxide 26.7 21.0-32.0 mmol/L Anion Gap 14.3 Glucose 167 74-106 mg/dL Blood Urea Nitrogen 15.0 7.0-18.0 mg/dL Creatinine 0.92 0.55-1.02 mg/dL Estimated GFR ( Raya >60 >=60 mL/min/1.73m 2 Estimated GFR (Non- Heidi >60 >=60 mL/min/1.73m 2 BUN Creatinine Ratio 16.3 Calcium 8.6 8.5-10.1 mg/dL Bilirubin Total 0.2 0.2-1.0 mg/dL Aspartate Amino Transferase 19 15-37 U/L Alanine Aminotransferase 14 14-59 U/L Alkaline Phosphatase 100 46-116 U/L Total Protein 6.6 6.4-8.2 g/dL Albumin Level 3.2 3.4-5.0 g/dL Globulin 3.4 Albumin Globulin Ratio 0.9 Performing Lab: see note ML - [facility] LB CBC AUTO DIFF Reviewed date:02/20/2025 12:37:15 PM Interpretation: Performing Lab: Notes/Report: [facility] , White Blood Count 5.1 4.0-11.0 10 3/uL Red Blood Count 4.67 4.20-5.40 10 6/uL Hemoglobin 13.1 12.0-16.0 g/dL Hematocrit 39.9 36.0-48.0 % Mean Corpuscular Volume 85.4 81.0-99.0 fL Mean Corpuscular Hemoglobin 28.1 26.7-34.0 pg Mean Corpuscular HGB Conc 32.8 29.9-35.2 g/dL Red Cell Distribution Width 12.9 11.0-15.0 % Platelet Count 251 150-450 10 3/uL Mean Platelet Volume 9.3 9.5-13.5 fL Performing Lab: see note ML - [facility] LB ECG 12 lead Reviewed date:02/20/2025 12:37:15 PM Interpretation: Performing Lab: Notes/Report: Source Facility: [facility] [place], [place] [id number] [place] [address] Electrocardiograph Report Signed Patient: MARTHA APODACA MR#: [id number] : 1965 Acct:[id number] Age/Sex: 59 / F ADM Date: 02/19/25 Loc: [place] 230-[address]: Tony Turner M.D. Ordering Physician: Kaley Way Date of Service: 02/19/25 Procedure(s): ECG 12 lead Accession Number(s): [id number] cc: [facility] Test Date: 2025-02-19 Pat Name: MARTHA APODACA Department: Room: - Gender: Female Traffic I Manager: : 1965 Requested By: [id number] Order Number: [id number] Reading MD: LUIS ARMANDO DIAS M.D. Measurements Intervals Reading Rate: 77 P: 71 MD: 144 QRS: 90 QRSD: 78 T: 76 QT: 362 QTc: 393 Interpretive Statements 1100 Sinus rhythm 9110 normal ECG Compared to ECG 02/19/2025 22:47:14 Atrial-paced complex(es) or rhythm no longer present Right-axis deviation no longer present Electronically Signed On 02-20-2025 7:04:45 EDT by LUIS ARMANDO DIAS M.D. Dictated By: LUIS ARMANDO DIAS Signed By: 02/20/25 0705 DD/ 2249 TD/TT: Mechanical Systems Designer: [place] [address] Electrocardiograph Report Signed Patient: KRISTAL APODACA MR#: [id number] : 1965 Acct:[id number] Age/Sex: 59 / F ADM Date: 02/19/25 Loc: [place] 230-[address]: Perez Turner M.D. Ordering Physician: Kaley Way Date of Service: 02/19/25 Procedure(s): ECG 12 lead Accession Number(s): [id number] cc: [facility] Test Date: 2025-02-19 Pat Name: MARTHA GARCÍA Department: 75 Room: - Gender: Female Traffic I Manager: : 1965 Axel izquierdo By: 0939 Order Number: [id number] Reading MD: LUIS ARMANDO DIAS M.D. Measurements Intervals Reading Rate: 77 P: 71 MD: 144 QRS: 90 QRSD: 78 T: 76 QT: 362 QTc: 393 Interpretive Statements 1100 Sinus rhythm 9110 normal ECG Compared to ECG 02/19/2025 22:47:14 Atrial-paced complex (es) or rhythm no longer present Right-axis deviation no longer present Electronically Elma d On 02-20-2025 7:04:45 EDT by LUIS ARMANDO DIAS M.D. Dictated By: LUIS ARMANDO DIAS Signed By: 02/20/25 0705 DD/ 2249 TD/TT: Mechanical Systems Designer: Troponin I High Sensitivity Reviewed date:02/20/2025 12:37:15 PM Interpretation: Performing Lab: Notes/Report: [facility] , Troponin I High Sensitivity 4.6 4.0-51.3 pg/mL CUT-OFF POINTS HAVE BEEN ESTABLISHED BASED ON THE FOURTH UNIVERSAL DEFINITION OF MYOCARDIAL INFARCTION. THE UPPER REFERENCE LIMIT (URL) OF TROPONIN, DEFINED THE 99TH PERCENTILE OF cTnI DISTRIBUTION IN A REFERENCE POPULATION, HAS BEEN CONFIRMED THE DECISION THRESHOLD FOR [place] DIAGNOSIS. 99TH PERCENTILE = 51.4 PG/ML NOTE: HIGH-SENSITIVITY TROPONIN ASSAY IS NOT INTENDED TO BE USED IN ISOLATION BUT SHOULD BE INTERPRETED IN CONJUNCTION WITH OTHER DIAGNOSTIC AND CLINICAL INFORMATION. Performing Lab: see note ML - [facility] LB PROF 14(COMP METB) Reviewed date:02/20/2025 12:37:15 PM Interpretation: Performing Lab: Notes/Report: The [facility] , Sodium 141 136-145 mmol/L Potassium 3.9 3.5-5.1 mmol/L Chloride 104 98-107 mmol/L Carbon Dioxide 28.7 21.0-32.0 mmol/L Anion Gap 12.2 Glucose 108 74-106 mg/dL Blood Urea Nitrogen 16.0 7.0-18.0 mg/dL Creatinine 1.01 0.55-1.02 mg/dL Estimated GFR ( Raya >60 >=60 mL/min/1.73m 2 Estimated GFR (Non- Heidi 56 >=60 mL/min/1.73m 2 BUN Creatinine Ratio 15.8 Calcium 9.6 8.5-10.1 mg/dL Bilirubin Total 0.2 0.2-1.0 mg/dL Aspartate Amino Transferase 19 15-37 U/L Alanine Aminotransferase 17 14-59 U/L Alkaline Phosphatase 112 46-116 U/L Total Protein 7.6 6.4-8.2 g/dL Albumin Level 3.8 3.4-5.0 g/dL Globulin 3.8 Albumin Globulin Ratio 1.0 Performing Lab: see note ML - [facility] LB LACTATE or LACTIC ACID Reviewed date:02/20/2025 12:37:15 PM Interpretation: Performing Lab: Notes/Report: [facility] , Lactate/Lactic Acid 0.8 0.4-2.0 mmol/L Performing Lab: see note ML - [facility] LB CRP Reviewed date:02/20/2025 12:37:15 PM Interpretation: Performing Lab: Notes/Report: [facility] , C Reactive Protein <0.50 <=0.50 mg/dL Performing Lab: see note ML - [facility] LB CBC AUTO DIFF Reviewed date:02/20/2025 12:37:15 PM Interpretation: Performing Lab: Notes/Report: [facility] , White Blood Count 7.6 4.0-11.0 10 3/uL Red Blood Count 5.00 4.20-5.40 10 6/uL Hemoglobin 13.9 12.0-16.0 g/dL Hematocrit 42.7 36.0-48.0 % Mean Corpuscular Volume 85.4 81.0-99.0 fL Mean Corpuscular Hemoglobin 27.8 26.7-34.0 pg Mean Corpuscular HGB Conc 32.6 29.9-35.2 g/dL Red Cell Distribution Width 13.1 11.0-15.0 % Platelet Count 276 150-450 10 3/uL Mean Platelet Volume 9.3 9.5-13.5 fL Neutrophils Percent Auto 74.4 43.0-75.0 % Lymphocytes Percent Auto 16.9 20.5-60.0 % Monocytes Percent Auto 4.9 1.7-12.0 % Eosinophils Percent Auto 3.2 0.9-7.0 % Basophils Percent Auto 0.3 0.2-2.0 % Immature Granulocytes Pct Auto 0.3 0.0-0.5 % Neutrophils Absolute Auto 5.7 1.4-6.5 10 3/uL Lymphocytes Absolute Auto 1.3 1.2-3.8 10 3/uL Monocytes Absolute Auto 0.4 0.3-0.8 10 3/uL Eosinophils Absolute Auto 0.2 0.0-0.7 10 3/uL Basophils Absolute Auto 0.0 0.0-0.1 10 3/uL Immature Granulocytes Abs Auto 0.02 0.00-0.03 10 3/uL Performing Lab: see note - [facility] LB BNP Reviewed date:02/20/2025 12:37:15 PM Interpretation: Performing Lab: Notes/Report: [facility] , NT Pro B Type Natriuretic Pept 33.0 <=900.0 pg/mL Performing Lab: see note - [facility] LB ECG 12 lead Reviewed date:12/03/2024 07:36:19 PM Interpretation: Performing Lab: Notes/Report: Source Facility: [place] [address] Electrocardiograph Report Signed Patient: MARTHA APODACA MR#: [id number] : 1965 Acct:[id number] Age/Sex: 59 / F ADM Date: 12/01/24 Loc: ER Attending Dr: Ordering Physician: Ruben Browne D.O. 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 Signed By: 12/03/24 103 DD/ 1448 TD/TT: Mechanical Systems Designer: [place] [address] Electrocardiograph Report Signed Patient: KRISTAL APODACA MR#: [id number] : 1965 Acct:[id number] Age/Sex: 59 / F ADM Date: 12/01/24 Loc: ER Attending Dr: Ordering Physician: Ruben Browne D.O. 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 Signed By: 12/03/24 103 DD/ 1448 TD/TT: Mechanical Systems Designer: MARY Micro, reflex to culture Reviewed date:12/01/2024 08:34:44 PM Interpretation: Performing Lab: Notes/Report: [facility] , Color Urine YELLOW YELLOW Clarity Urine CLEAR CLEAR Specific [place] Urine 1.025 1.005-1.025 pH Urine 6.0 5.0-9.0 Protein Urine TRACE NEG/TRACE mg/dL Glucose Urine UA NEGATIVE NEGATIVE mg/dL Bilirubin Urine MODERATE NEGATIVE Ketones Urine >=80 NEGATIVE mg/dL Blood Urine NEGATIVE NEGATIVE Nitrite Urine NEGATIVE NEGATIVE Urobilinogen Urine 1.0 0.2-1.0 EU/dL Leukocyte Esterase Urine NEGATIVE NEGATIVE WBC Urine 0-2 NONE SEEN #/HPF RBC Urine 0-2 0-2 #/HPF Bacteria Urine TRACE NONE SEEN #/HPF Mucus Urine LARGE NONE SEEN Squamous Epithelial Cell Urine RARE NONE/RARE #/LPF Crystals Seen? None Seen None Seen #/HPF Cast Seen? NONE SEEN NONE SEEN #/LPF Urine Culture Indicated NO Performing Lab: see note ML - [facility] LB Ethanol Reviewed date:12/01/2024 08:34:44 PM Interpretation: Performing Lab: Notes/Report: [facility] , Ethanol <3 NOTE: 80 mg/dl is the legal limit for a blood alcohol level Performing Lab: see note ML - [facility] Salicylate Reviewed date:12/01/2024 08:34:44 PM Interpretation: Performing Lab: Notes/Report: [facility] , Salicylate <2.8 <=19.9 mg/dL Performing Lab: see note [facility] PROF CHEM 8 (BAS METB) Reviewed date:12/01/2024 08:34:44 PM Interpretation: Performing Lab: Notes/Report: [facility] , Sodium 138 136-145 mmol/L Potassium 3.3 3.5-5.1 mmol/L Chloride 101 98-107 mmol/L Carbon Dioxide 29.6 21.0-32.0 mmol/L Anion Gap 10.7 Glucose 76 74-106 mg/dL Blood Urea Nitrogen 15.0 7.0-18.0 mg/dL Creatinine 1.15 0.55-1.02 mg/dL Estimated GFR ( Raya 58 >=60 mL/min/1.73m 2 Estimated GFR (Non- Heidi 48 >=60 mL/min/1.73m 2 BUN Creatinine Ratio 13.0 Calcium 9.0 8.5-10.1 mg/dL Performing Lab: see note ML - [facility] CBC AUTO DIFF Reviewed date:12/01/2024 08:34:44 PM Interpretation: Performing Lab: Notes/Report: [facility] , White Blood Count 3.9 4.0-11.0 10 3/uL Red Blood Count 5.51 4.20-5.40 10 6/uL Hemoglobin 15.5 12.0-16.0 g/dL Hematocrit 48.0 36.0-48.0 % Mean Corpuscular Volume 87.1 81.0-99.0 fL Mean Corpuscular Hemoglobin 28.1 26.7-34.0 pg Mean Corpuscular HGB Conc 32.3 29.9-35.2 g/dL Red Cell Distribution Width 12.7 11.0-15.0 % Platelet Count 162 150-450 10 3/uL Mean Platelet Volume 9.9 9.5-13.5 fL Neutrophils Percent Auto 70.0 43.0-75.0 % Lymphocytes Percent Auto 19.0 20.5-60.0 % Monocytes Percent Auto 8.7 1.7-12.0 % Eosinophils Percent Auto 1.8 0.9-7.0 % Basophils Percent Auto 0.0 0.2-2.0 % Immature Granulocytes Pct Auto 0.5 0.0-0.5 % Neutrophils Absolute Auto 2.7 1.4-6.5 10 3/uL Lymphocytes Absolute Auto 0.7 1.2-3.8 10 3/uL Monocytes Absolute Auto 0.3 0.3-0.8 10 3/uL Eosinophils Absolute Auto 0.1 0.0-0.7 10 3/uL Basophils Absolute Auto 0.0 0.0-0.1 10 3/uL Immature Granulocytes Abs Auto 0.02 0.00-0.03 10 3/uL Performing Lab: see note ML - [facility] LB ACETAMINOPHEN Reviewed date:12/01/2024 08:34:44 PM Interpretation: Performing Lab: Notes/Report: [facility] , Acetaminophen <2.0 10.0-30.0 ug/mL Performing Lab: see note ML - [facility] LB CBC AUTO DIFF Reviewed date:11/29/2024 12:59:18 PM Interpretation: Performing Lab: Notes/Report: [facility] , White Blood Count 2.2 4.0-11.0 10 3/uL Red Blood Count 4.61 4.20-5.40 10 6/uL Hemoglobin 13.3 12.0-16.0 g/dL Hematocrit 41.2 36.0-48.0 % Mean Corpuscular Volume 89.4 81.0-99.0 fL Mean Corpuscular Hemoglobin 28.9 26.7-34.0 pg Mean Corpuscular HGB Conc 32.3 29.9-35.2 g/dL Red Cell Distribution Width 13.2 11.0-15.0 % Platelet Count 132 150-450 10 3/uL Mean Platelet Volume 9.4 9.5-13.5 fL Neutrophils Percent Auto 63.9 43.0-75.0 % Lymphocytes Percent Auto 28.4 20.5-60.0 % Monocytes Percent Auto 7.7 1.7-12.0 % Eosinophils Percent Auto 0.0 0.9-7.0 % Basophils Percent Auto 0.0 0.2-2.0 % Immature Granulocytes Pct Auto 0.0 0.0-0.5 % Neutrophils Absolute Auto 1.4 1.4-6.5 10 3/uL Lymphocytes Absolute Auto 0.6 1.2-3.8 10 3/uL Monocytes Absolute Auto 0.2 0.3-0.8 10 3/uL Eosinophils Absolute Auto 0.0 0.0-0.7 10 3/uL Basophils Absolute Auto 0.0 0.0-0.1 10 3/uL Immature Granulocytes Abs Auto 0.00 0.00-0.03 10 3/uL Performing Lab: see note ML - [facility] LB Urine Culture - [facility] Reviewed date:12/01/2024 12:42:02 PM Interpretation: Performing Lab: Notes/Report: [facility] , Urine Culture - [facility] See Below For Report Urine Culture - [facility] Testing performed at [facility] O:ESCCOL Isolated Urine Culture - [facility] Organism Comments Organism: 1.1 Antibiotic Interpretation VALENTE Status Urine Culture - [facility] [address], [place] [address] Urine Culture - [facility] Testing performed at [facility] O:ESCCOL Isolated Urine Culture - [facility] Organism Comments Organism: 1.1 Antibiotic Interpretation VALENTE Status Urine Culture - [facility] See Below For Report Urine Culture - [facility] Testing performed at [facility] O:ESCCOL Isolated Urine Culture - [facility] Organism Comments Organism: 1.1 Antibiotic Interpretation VALENTE Status Urine Culture - [facility] See Below For Report Urine Culture - [facility] Testing performed at [facility] O:ESCCOL Isolated Urine Culture - [facility] Organism Comments Organism: 1.1 Antibiotic Interpretation VALENTE Status Urine Culture - [facility] <10,000 CFU/ML Urine Culture - [facility] Testing performed at [facility] O:ESCCOL Isolated Urine Culture - [facility] Organism Comments Organism: 1.1 Antibiotic Interpretation VALENTE Status Urine Culture - [facility] See Below For Report Urine Culture - [facility] Testing performed at [facility] O:ESCCOL Isolated Urine Culture - [facility] Organism Comments Organism: 1.1 Antibiotic Interpretation VALENTE Status Urine Culture - [facility] Amikacin S F Urine Culture - [facility] Testing performed at [facility] O:ESCCOL Isolated Urine Culture - [facility] Organism Comments Organism: 1.1 Antibiotic Interpretation VALENTE Status Urine Culture - [facility] Amoxicillin/Clavula ralph S F Urine Culture - [facility] Testing performed at [facility] O:ESCCOL Isolated Urine Culture - [facility] Organism Comments Organism: 1.1 Antibiotic Interpretation VALENTE Status Urine Culture - [facility] Ampicillin S F Urine Culture - [facility] Testing performed at [facility] O:ESCCOL Isolated Urine Culture - [facility] Organism Comments Organism: 1.1 Antibiotic Interpretation VALENTE Status Urine Culture - [facility] Aztreonam S F Urine Culture - [facility] Testing performed at [facility] O:ESCCOL Isolated Urine Culture - [facility] Organism Comments Organism: 1.1 Antibiotic Interpretation VALENTE Status Urine Culture - [facility] Ceftazidime S F Urine Culture - [facility] Testing performed at [facility] O:ESCCOL Isolated Urine Culture - [facility] Organism Comments Organism: 1.1 Antibiotic Interpretation VALENTE Status Urine Culture - [facility] Ceftazidime/Avibactam S F Urine Culture - [facility] Testing performed at [facility] O:ESCCOL Isolated Urine Culture - [facility] Organism Comments Organism: 1.1 Antibiotic Interpretation VALENTE Status Urine Culture - [facility] Ceftolozane/Tazobac cleary S F Urine Culture - [facility] Testing performed at [facility] O:ESCCOL Isolated Urine Culture - [facility] Organism Comments Organism: 1.1 Antibiotic Interpretation VALENTE Status Urine Culture - [facility] Ciprofloxacin S F Urine Culture - [facility] Testing performed at [facility] O:ESCCOL Isolated Urine Culture - [facility] Organism Comments Organism: 1.1 Antibiotic Interpretation VALENTE Status Urine Culture - [facility] Ertapenem S F Urine Culture - [facility] Testing performed at [facility] O:ESCCOL Isolated Urine Culture - [facility] Organism Comments Organism: 1.1 Antibiotic Interpretation VALENTE Status Urine Culture - [facility] Gentamicin S F Urine Culture - [facility] Testing performed at [facility] O:ESCCOL Isolated Urine Culture - [facility] Organism Comments Organism: 1.1 Antibiotic Interpretation VALENTE Status Urine Culture - [facility] Levofloxacin S F Urine Culture - [facility] Testing performed at [facility] O:ESCCOL Isolated Urine Culture - [facility] Organism Comments Organism: 1.1 Antibiotic Interpretation VALENTE Status Urine Culture - [facility] Meropenem S F Urine Culture - [facility] Testing performed at [facility] O:ESCCOL Isolated Urine Culture - [facility] Organism Comments Organism: 1.1 Antibiotic Interpretation VALENTE Status Urine Culture - [facility] Meropenem/Vaborbact am S F Urine Culture - [facility] Testing performed at [facility] O:ESCCOL Isolated Urine Culture - [facility] Organism Comments Organism: 1.1 Antibiotic Interpretation VALENTE Status Urine Culture - [facility] Nitrofurantoin S F Urine Culture - [facility] Testing performed at [facility] O:ESCCOL Isolated Urine Culture - [facility] Organism Comments Organism: 1.1 Antibiotic Interpretation VALENTE Status Urine Culture - [facility] Tetracycline S F Urine Culture - [facility] Testing performed at [facility] O:ESCCOL Isolated Urine Culture - [facility] Organism Comments Organism: 1.1 Antibiotic Interpretation VALENTE Status Urine Culture - [facility] Tigecycline S F Urine Culture - [facility] Testing performed at [facility] O:ESCCOL Isolated Urine Culture - [facility] Organism Comments Organism: 1.1 Antibiotic Interpretation VALENTE Status Urine Culture - [facility] Tobramycin S F Urine Culture - [facility] Testing performed at [facility] O:ESCCOL Isolated Urine Culture - [facility] Organism Comments Organism: 1.1 Antibiotic Interpretation VALENTE Status Urine Culture - [facility] Ampicillin/Sulbactam S F Urine Culture - [facility] Testing performed at [facility] O:ESCCOL Isolated Urine Culture - [facility] Organism Comments Organism: 1.1 Antibiotic Interpretation VALENTE Status Urine Culture - [facility] Cefazolin S F Urine Culture - [facility] Testing performed at [facility] O:ESCCOL Isolated Urine Culture - [facility] Organism Comments Organism: 1.1 Antibiotic Interpretation VALENTE Status Urine Culture - [facility] Cefepime S F Urine Culture - [facility] Testing performed at [facility] O:ESCCOL Isolated Urine Culture - [facility] Organism Comments Organism: 1.1 Antibiotic Interpretation VALENTE Status Urine Culture - [facility] Ceftriaxone S F Urine Culture - [facility] Testing performed at [facility] O:ESCCOL Isolated Urine Culture - [facility] Organism Comments Organism: 1.1 Antibiotic Interpretation VALENTE Status Urine Culture - [facility] Cefuroxime S F Urine Culture - [facility] Testing performed at [facility] O:ESCCOL Isolated Urine Culture - [facility] Organism Comments Organism: 1.1 Antibiotic Interpretation VALENTE Status Urine Culture - [facility] Piperacillin/Tazoba ctam S F Urine Culture - [facility] Testing performed at [facility] O:ESCCOL Isolated Urine Culture - [facility] Organism Comments Organism: 1.1 Antibiotic Interpretation VALENTE Status Urine Culture - [facility] Trimethoprim/Sulfa S F Urine Culture - [facility] Testing performed at [facility] O:ESCCOL Isolated Urine Culture - [facility] Organism Comments Organism: 1.1 Antibiotic Interpretation VALENTE Status Performing Lab: see note - [facility] LB SEE REPORT - Community [employer] Member Id information not found for OBX-specific creative services producer legend Campylobacter Culture Reviewed date:12/01/2024 12:42:02 PM Interpretation: Performing Lab: Notes/Report: [facility] , Campylobacter Culture See Below For Report Campylobacter Culture No Campylobacter species isolated. Performing Lab: see note - [facility] LB E coli Shiga Toxin EIA Reviewed date:11/28/2024 07:50:06 PM Interpretation: Performing Lab: Notes/Report: [facility] , E coli Shiga Toxin EIA See Below For Report E coli Shiga Toxin EIA E coli Shiga Toxin EIA Negative E coli Shiga Toxin EIA E coli Shiga Toxin EIA Performed at: [facility] E coli Shiga Toxin EIA E coli Shiga Toxin EIA [address], [place] [id number] E coli Shiga Toxin EIA E coli Shiga Toxin EIA Returned Materials Inspector: Dov Chapa PhD, Phone: [phone] E coli Shiga Toxin EIA Performing Lab: see note - [facility] LB SEE REPORT - Community Board Member Id information not found for OBX-specific creative services producer legend C. Difficile PCR Reviewed date:11/26/2024 01:37:16 PM Interpretation: Performing Lab: Notes/Report: [facility] , C. Difficile PCR NEGATIVE Performing Lab: see note [facility] LB UA RANDOM W or MICROSCOPIC Reviewed date:11/27/2024 12:23:08 PM Interpretation: Performing Lab: Notes/Report: [facility] , Color Urine LT. YELLOW YELLOW Clarity Urine CLEAR CLEAR Specific [place] Urine 1.015 1.005-1.025 pH Urine 5.0 5.0-9.0 Protein Urine NEGATIVE NEG/TRACE mg/dL Glucose Urine UA NEGATIVE NEGATIVE mg/dL Bilirubin Urine NEGATIVE NEGATIVE Ketones Urine NEGATIVE NEGATIVE mg/dL Blood Urine TRACE-I NEGATIVE Nitrite Urine NEGATIVE NEGATIVE Urobilinogen Urine 0.2 0.2-1.0 EU/dL Leukocyte Esterase Urine NEGATIVE NEGATIVE WBC Urine NONE SEEN NONE SEEN #/HPF RBC Urine 0-2 0-2 #/HPF Bacteria Urine NONE SEEN NONE SEEN #/HPF Mucus Urine NONE SEEN NONE SEEN Squamous Epithelial Cell Urine RARE NONE/RARE #/LPF Crystals Seen? None Seen None Seen #/HPF Cast Seen? NONE SEEN NONE SEEN #/LPF Urine Culture Indicated ALREADY ORDERED Performing Lab: see note ML - [facility] LB SARS-CoV-2 Ag* Reviewed date:11/25/2024 01:56:15 PM Interpretation: Performing Lab: Notes/Report: [facility] , SARS-CoV-2 Ag NEGATIVE NEGATIVE This test has not been FDA cleared or approved, but has been authorized by the FDA under an Emergency Use Authorization (EUA) for use by authorized laboratories certified under CLIA that meet the requirements to perform moderate or high complexity testing. This test has been authorized only for the detection of proteins from SARS-CoV-2, not for any other viruses or pathogens. The emergency use of this test is authorized for the duration of the declaration that circumstances exist justifying the authorization of emergency use of in vitro diagnostic tests for detection and/or diagnosis of Covid-19 under section 564(b)(1) of the Act, 21 U.S.C. 360bbb-3(b)(1), unless the declaration is terminated or authorization is revoked sooner. Performing Lab: see note ML - [facility] LB Prothrombin Time INR Reviewed date:11/25/2024 01:56:15 PM Interpretation: Performing Lab: Notes/Report: [facility] , Prothrombin Time 11.8 9.0-11.6 sec INR 1.13 DESIRED INR: 2.0-3.0 CONDITIONS NOT LISTED BELOW 2.5-3.5 FOR PROSTHETIC HEART VALVE REPLACEMENT 2.5-3.5 RECURRENT THROMBOSIS Performing Lab: see note ML - [facility] LB LACTATE or LACTIC ACID Reviewed date:11/25/2024 08:17:49 PM Interpretation: Performing Lab: Notes/Report: [facility] , Lactate/Lactic Acid 1.3 0.4-2.0 mmol/L Performing Lab: see note ML - [facility] LB INFLUENZA A AND B AG Reviewed date:11/25/2024 01:56:15 PM Interpretation: Performing Lab: Notes/Report: [facility] , Influenza Virus A Antigen Positive NOTE: Live attenuated influenza vaccine viruses can cause a positive result for a rapid influenza diagnostic test if administered up to 7 days prior to rapid testing. Influenza Virus B Antigen Negative Negative for Flu B protein antigen. Infection due to Flu B cannot be ruled out. Flu B antigen in the sample may be below the detection limit of the test. Performing Lab: see note ML - [facility] LB CBC AUTO DIFF Reviewed date:11/25/2024 01:56:15 PM Interpretation: Performing Lab: Notes/Report: [facility] , White Blood Count 3.7 4.0-11.0 10 3/uL Red Blood Count 4.87 4.20-5.40 10 6/uL Hemoglobin 13.8 12.0-16.0 g/dL Hematocrit 42.4 36.0-48.0 % Mean Corpuscular Volume 87.1 81.0-99.0 fL Mean Corpuscular Hemoglobin 28.3 26.7-34.0 pg Mean Corpuscular HGB Conc 32.5 29.9-35.2 g/dL Red Cell Distribution Width 13.5 11.0-15.0 % Platelet Count 168 150-450 10 3/uL Mean Platelet Volume 10.7 9.5-13.5 fL Neutrophils Percent Auto 77.1 43.0-75.0 % Lymphocytes Percent Auto 14.0 20.5-60.0 % Monocytes Percent Auto 8.6 1.7-12.0 % Eosinophils Percent Auto 0.0 0.9-7.0 % Basophils Percent Auto 0.0 0.2-2.0 % Immature Granulocytes Pct Auto 0.3 0.0-0.5 % Neutrophils Absolute Auto 2.9 1.4-6.5 10 3/uL Lymphocytes Absolute Auto 0.5 1.2-3.8 10 3/uL Monocytes Absolute Auto 0.3 0.3-0.8 10 3/uL Eosinophils Absolute Auto 0.0 0.0-0.7 10 3/uL Basophils Absolute Auto 0.0 0.0-0.1 10 3/uL Immature Granulocytes Abs Auto 0.01 0.00-0.03 10 3/uL Performing Lab: see note ML - [facility] LB PROF CHEM 8 (BAS METB) Reviewed date:07/20/2024 11:24:01 AM Interpretation: Performing Lab: Notes/Report: [facility] , Sodium 143 136-145 mmol/L Potassium 3.5 3.5-5.1 mmol/L Chloride 110 98-107 mmol/L Carbon Dioxide 20.7 21.0-32.0 mmol/L Anion Gap 15.8 Glucose 67 74-106 mg/dL Blood Urea Nitrogen 20.0 7.0-18.0 mg/dL Creatinine 0.92 0.55-1.02 mg/dL Estimated GFR ( Raya >60 >=60 mL/min/1.73m 2 Estimated GFR (Non- Heidi >60 >=60 mL/min/1.73m 2 BUN Creatinine Ratio 21.7 Calcium 7.6 8.5-10.1 mg/dL Performing Lab: see note [facility] LB PROF 14(COMP METB) Reviewed date:07/20/2024 11:24:01 AM Interpretation: Performing Lab: Notes/Report: [facility] , Sodium 141 136-145 mmol/L Potassium 3.6 3.5-5.1 mmol/L Chloride 102 98-107 mmol/L Carbon Dioxide 27.9 21.0-32.0 mmol/L Anion Gap 14.7 Glucose 87 74-106 mg/dL Blood Urea Nitrogen 20.0 7.0-18.0 mg/dL Creatinine 1.20 0.55-1.02 mg/dL Estimated GFR ( Raya 56 >=60 mL/min/1.73m 2 Estimated GFR (Non- Heidi 46 >=60 mL/min/1.73m 2 BUN Creatinine Ratio 16.7 Calcium 9.2 8.5-10.1 mg/dL Bilirubin Total 0.7 0.2-1.0 mg/dL Aspartate Amino Transferase 27 15-37 U/L Alanine Aminotransferase 24 14-59 U/L Alkaline Phosphatase 99 46-116 U/L Total Protein 7.7 6.4-8.2 g/dL Albumin Level 3.7 3.4-5.0 g/dL Globulin 4.0 Albumin Globulin Ratio 0.9 Performing Lab: see note - [facility] LB Vitamin B12 Reviewed date:06/28/2024 08:19:29 AM Interpretation: Performing Lab: Notes/Report: [facility] , Vitamin B12 545 261-6934 pg/mL Performed at: - [facility] [address] [id number] Returned Materials Inspector: Stevie Chapa PhD, Phone: [phone] Performing Lab: see note LC - [facility] LB TSH Reviewed date:06/27/2024 03:32:10 PM Interpretation: Performing Lab: Notes/Report: [facility] , Thyroid Stimulating Hormone 0.194 0.358-3.740 uIU/mL Performing Lab: see note ML - [facility] LB XR shoulder LT min 2V Reviewed date:06/20/2024 12:48:20 PM Interpretation: Performing Lab: Notes/Report: Source Facility: [place] [address] XRay Report Signed Patient: MARTHA APODACA MR#: [id number] : 1965 Acct:[id number] Age/Sex: 58 / F ADM Date: 06/19/24 Loc: ER Attending Dr: Ordering Physician: Kaley Way Date of Service: 06/19/24 Procedure(s): XR shoulder LT min 2V Accession Number(s): [id number] cc: Tony Turner M.D.; [address] [place] [address] Patient Name: MARTHA APODACA MRN: [id number] date: 1965 Sex: F Assigned Patient Location: ER Current Patient Location: ED.MAIN Accession/Order Number: [id number] Exam Date: 06/19/2024 21:55 Report Date: 06/19/2024 23:18 At the request of: KALEY WAY Procedure: XR shoulder LT min 2V Examination:XR hand LT min 3V, XR shoulder LT min 2V, XR knee RT 3V INDICATION:fall, 5th metatarsal pain COMPARISON:None. TECHNIQUE:3 views of the left hand, 3 views of the right knee and 3 views of the left shoulder FINDINGS: Left hand: The bones are osteopenic. There is cortical step-off deformity in the base of the fourth metacarpal bone concerning for an acute fracture. No additional acute fractures are present elsewhere in the left hand. Mild degeneration is present throughout the interphalangeal joints. There is soft tissue swelling of the left hand. Right knee: There is a faint lucency in the patella on the lateral projection which is concerning for an acute nondisplaced patellar fracture. No acute fractures are appreciated elsewhere in the right knee. There is soft tissue swelling and a joint effusion. Left shoulder: No acute fracture or dislocations are present. Mild to moderate hypertrophic changes are present in the acromioclavicular joint. There is mild degeneration along the inferior glenohumeral joint. Soft tissues are unremarkable. XR/XR shoulder LT min 2V IMPRESSION: 1. Acute fracture in the base of the fourth metacarpal bone. 2. Findings concerning for a nondisplaced acute patellar fracture. 3. No acute fracture is appreciated in the left shoulder. Electronically authenticated by: STACEY CUELLAR Date: 06/19/2024 23:18 Dictated By: Stacey Cuellar M.D. Signed By: 06/20/24 0001 DD/ 2318 TD/TT: Mechanical Systems Designer: [address] [address] XRay Report Signed Patient: KRISTAL APODACA MR#: [id number] : 1965 Acct:[id number] Age/Sex: 58 / F ADM Date: 06/19/24 Loc: ER Attending Dr: Ordering Physician: Kaley Way Date of Service: 06/19/24 Procedure(s): XR prakash ulder LT min 2V Accession Number(s): [id number] cc: Tony Turner M.D. ; Kaley [address] [address] Patient Name: MARTHA APODACA MRN: [id number] date: 1965 Sex: F Assigned Patient Location: ER Current Patient Loca tion: ED.MAIN Accession/Order Numb er: [id number] Exam Date: 06/19/2024 21:55 Report Date: 06/19/2024 23:18 At the request of: KALEY WAY Procedure: XR should er LT min 2V Examination:XR hand LT min 3V, XR shoulder LT min 2V, XR knee RT 3V INDICATION:fall, 5th metatarsal pain COMPARISON:None. TECHNIQUE:3 views of the left hand, 3 views of the right knee and 3 views of the left shoulder FINDINGS: Left hand: The bones are osteopenic. There is cortical step-off deformity in the base of the four th metacarpal bone concerning for an acute fracture. No additional acute fractures are present elsewhere in the left hand. Mild degeneration is pres ent throughout the interphalangeal joints. There is soft tissue swelling of t he left hand. Right knee: There is a faint lucency in the patella on the lateral projection which is concerning for an acute nondisplaced patellar fracture. No acute fractures are apprec iated elsewhere in the right knee. There is soft tissue swelling and a joint effusion. Left shoulder: No ac flandreau fracture or dislocations are present. Mild to moderate hypertrophic changes are present in the acromioclavicular joint. There is mild degeneration along t he inferior glenohumeral joint. Soft tissues are unremarkable. X R/XR shoulder LT min 2V IMPRESSION: 1. Acute fracture in the base of the fourth metacarpal bone. 2. Findings concerni ng for a nondisplaced acute patellar fracture. 3. No acute fracture is appreciated in the left shoulder. Electronically authenticated by: STACEY CUELLAR Date: 06/19/2024 23:18 Dictated By: Stacey Cuellar M.D. Signed By: 06/20/24 0001 DD/ 2318 TD/TT: Mechanical Systems Designer: XR chest 1V Reviewed date:06/20/2024 12:48:20 PM Interpretation: Performing Lab: Notes/Report: Source Facility: [facility] [place] [address] [place] [address] XRay Report Signed Patient: MARTHA APODACA MR#: [id number] : 1965 Acct:[id number] Age/Sex: 58 / F ADM Date: 06/19/24 Loc: ER Attending Dr: Ordering Physician: Kaley Way Date of Service: 06/19/24 Procedure(s): XR chest 1V Accession Number(s): [id number] cc: Tony Turner M.D.; Kaley aWy [address] [address] Patient Name: MARTHA APODACA MRN: [facility]:[id number] date: 1965 Sex: F Assigned Patient Location: ER Current Patient Location: ED.MAIN Accession/Order Number: [id number] Exam Date: 06/19/2024 21:55 Report Date: 06/19/2024 23:06 At the request of: KALEY WAY Procedure: XR chest 1V CXR HISTORY: Shortness of breath. COMPARISON: 02/20/2024 TECHNIQUE: 1 view of the chest submitted for review. FINDINGS: Lines and tubes: Cardiac pacer demonstrated. There is a calcified granuloma which is stable in the right midlung field. Lungs are hyperaerated. No acute infiltrate. No effusion. The cardiac silhouette measures within normal. Pulmonary vascularity is unremarkable. Osseous structures are normal for age. XR/XR chest 1V IMPRESSION: No plain film evidence for acute cardiopulmonary disease. Electronically authenticated by: TYLER SOL Date: 06/19/2024 23:06 Dictated By: Tyler Sol M.D. Signed By: 06/20/24 0000 DD/ 2306 TD/TT: Mechanical Systems Designer: [place] [address] XRay Report Signed Patient: KRISTAL APODACA MR#: [id number] : 1965 Acct:[id number] Age/Sex: 58 / F ADM Date: 06/19/24 Loc: ER Attending Dr: Ordering Physician: Kaley Way Date of Service: 06/19/24 Procedure(s): XR chest 1V Accession Number(s): [id number] cc: Tony Turner M.D. ; [address] [place] [address] Patient Name: MARTHA APODACA MRN: [facility]:[id number] date: 1965 Sex: F Assigned Patient Location: ER Current Patient Loca tion: ED.MAIN Accession/Order Numb er: [id number] Exam Date: 06/19/2024 21:55 Report Date: 06/19/2024 23:06 At the request of: KALEY WAY Procedure: XR chest 1V CXR HISTORY: Shortness of breath. COMPARISON: 02/20/2024 TECHNIQUE: 1 view of the chest submitted for review. FINDINGS: Lines and tubes: Car diac pacer demonstrated. There is a calcified granuloma which is stable in the right midlung field. Lungs are hyperaerated. No acute infiltrate. No effusion. The cardiac silhouet te measures within normal. Pulmonary vascularit y is unremarkable. Osseous structures a re normal for age. X R/XR chest 1V IMPRESSION: No plain film eviden ce for acute cardiopulmonary disease. Electronically authenticated by: TYLER SOL Date: 06/19/2024 23:06 Dictated By: Tyler Sol M.D. Signed By: 06/20/24 0000 DD/ 2306 TD/TT: Mechanical Systems Designer: XR KNEE RT 3V Reviewed date:06/20/2024 12:48:20 PM Interpretation: Performing Lab: Notes/Report: Source Facility: [place] [address] XRay Report Signed Patient: MARTHA APODACA MR#: [id number] : 1965 Acct:[id number] Age/Sex: 58 / F ADM Date: 06/19/24 Loc: ER Attending Dr: Ordering Physician: Kaley Way Date of Service: 06/19/24 Procedure(s): XR knee RT 3V Accession Number(s): [id number] cc: Tony Turner M.D.; [address] [place] [address] Patient Name: MARTHA APODACA MRN: [id number] date: 1965 Sex: F Assigned Patient Location: ER Current Patient Location: ED.MAIN Accession/Order Number: [id number] Exam Date: 06/19/2024 21:55 Report Date: 06/19/2024 23:18 At the request of: KALEY MARKER Procedure: XR knee RT 3V Examination:XR hand LT min 3V, XR shoulder LT min 2V, XR knee RT 3V INDICATION:fall, 5th metatarsal pain COMPARISON:None. TECHNIQUE:3 views of the left hand, 3 views of the right knee and 3 views of the left shoulder FINDINGS: Left hand: The bones are osteopenic. There is cortical step-off deformity in the base of the fourth metacarpal bone concerning for an acute fracture. No additional acute fractures are present elsewhere in the left hand. Mild degeneration is present throughout the interphalangeal joints. There is soft tissue swelling of the left hand. Right knee: There is a faint lucency in the patella on the lateral projection which is concerning for an acute nondisplaced patellar fracture. No acute fractures are appreciated elsewhere in the right knee. There is soft tissue swelling and a joint effusion. Left shoulder: No acute fracture or dislocations are present. Mild to moderate hypertrophic changes are present in the acromioclavicular joint. There is mild degeneration along the inferior glenohumeral joint. Soft tissues are unremarkable. XR/XR knee RT 3V IMPRESSION: 1. Acute fracture in the base of the fourth metacarpal bone. 2. Findings concerning for a nondisplaced acute patellar fracture. 3. No acute fracture is appreciated in the left shoulder. Electronically authenticated by: STACEY CUELLAR Date: 06/19/2024 23:18 Dictated By: Stacey Cuellar M.D. Signed By: 06/20/24 0000 DD/ 2318 TD/TT: Mechanical Systems Designer: [place] [address] XRay Report Signed Patient: KRISTAL APODACA MR#: [id number] : 1965 Acct:[id number] Age/Sex: 58 / F ADM Date: 06/19/24 Loc: ER Attending Dr: Ordering Physician: Kaley Way Date of Service: 06/19/24 Procedure(s): XR kne e RT 3V Accession Number(s): [id number] cc: Tony Turner M.D. ; [address] [place] [address] Patient Name: MARTHA APODACA MRN: [id number] date: 1965 Sex: F Assigned Patient Location: ER Current Patient Loca tion: ED.MAIN Accession/Order Numb er: [id number] Exam Date: 06/19/2024 21:55 Report Date: 06/19/2024 23:18 At the request of: KALEY MARKER Procedure: XR knee RT 3V Examination:XR hand LT min 3V, XR shoulder LT min 2V, XR knee RT 3V INDICATION:fall, 5th metatarsal pain COMPARISON:None. TECHNIQUE:3 views of the left hand, 3 views of the right knee and 3 views of the left shoulder FINDINGS: Left hand: The bones are osteopenic. There is cortical step-off deformity in the base of the four th metacarpal bone concerning for an acute fracture. No additional acute fractures are present elsewhere in the left hand. Mild degeneration is pres ent throughout the interphalangeal joints. There is soft tissue swelling of t he left hand. Right knee: There is a faint lucency in the patella on the lateral projection which is concerning for an acute nondisplaced patellar fracture. No acute fractures are apprec iated elsewhere in the right knee. There is soft tissue swelling and a joint effusion. Left shoulder: No ac flandreau fracture or dislocations are present. Mild to moderate hypertrophic changes are present in the acromioclavicular joint. There is mild degeneration along t he inferior glenohumeral joint. Soft tissues are unremarkable. X R/XR knee RT 3V IMPRESSION: 1. Acute fracture in the base of the fourth metacarpal bone. 2. Findings concerni ng for a nondisplaced acute patellar fracture. 3. No acute fracture is appreciated in the left shoulder. Electronically authenticated by: STACEY CUELLAR Date: 06/19/2024 23:18 Dictated By: Stacey Cuellar M.D. Signed By: 06/20/24 0000 DD/ 2318 TD/TT: Mechanical Systems Designer: XR HAND LT MIN 3V Reviewed date:06/20/2024 12:48:20 PM Interpretation: Performing Lab: Notes/Report: Source Facility: [place] [address] [place] [address] XRay Report Signed Patient: MARTHA APODACA MR#: [id number] : 1965 Acct:[id number] Age/Sex: 58 / F ADM Date: 06/19/24 Loc: ER Attending Dr: Ordering Physician: Kaley Way Date of Service: 06/19/24 Procedure(s): XR hand LT min 3V Accession Number(s): [id number] cc: Tony Turner M.D.; Kaley Marker [place] [address] Patient Name: MARTHA APODACA MRN: [id number] date: 1965 Sex: F Assigned Patient Location: ER Current Patient Location: ED.MAIN Accession/Order Number: [id number] Exam Date: 06/19/2024 21:55 Report Date: 06/19/2024 23:18 At the request of: KALEY MARKER Procedure: XR hand LT min 3V Examination:XR hand LT min 3V, XR shoulder LT min 2V, XR knee RT 3V INDICATION:fall, 5th metatarsal pain COMPARISON:None. TECHNIQUE:3 views of the left hand, 3 views of the right knee and 3 views of the left shoulder FINDINGS: Left hand: The bones are osteopenic. There is cortical step-off deformity in the base of the fourth metacarpal bone concerning for an acute fracture. No additional acute fractures are present elsewhere in the left hand. Mild degeneration is present throughout the interphalangeal joints. There is soft tissue swelling of the left hand. Right knee: There is a faint lucency in the patella on the lateral projection which is concerning for an acute nondisplaced patellar fracture. No acute fractures are appreciated elsewhere in the right knee. There is soft tissue swelling and a joint effusion. Left shoulder: No acute fracture or dislocations are present. Mild to moderate hypertrophic changes are present in the acromioclavicular joint. There is mild degeneration along the inferior glenohumeral joint. Soft tissues are unremarkable. XR/XR hand LT min 3V IMPRESSION: 1. Acute fracture in the base of the fourth metacarpal bone. 2. Findings concerning for a nondisplaced acute patellar fracture. 3. No acute fracture is appreciated in the left shoulder. Electronically authenticated by: STACEY CUELLAR Date: 06/19/2024 23:18 Dictated By: Stacey Cuellar M.D. Signed By: 06/20/24 0001 DD/ 2318 TD/TT: Mechanical Systems Designer: [place] [address] XRay Report Signed Patient: KRISTAL APODACA MR#: [id number] : 1965 Acct:[id number] Age/Sex: 58 / F ADM Date: 06/19/24 Loc: ER Attending Dr: Ordering Physician: Kaley Way Date of Service: 06/19/24 Procedure(s): XR valles d LT min 3V Accession Number(s): [id number] cc: Tony Turner M.D. ; [address] [place] [address] Patient Name: MARTHA APODACA MRN: [id number] date: 1965 Sex: F Assigned Patient Location: ER Current Patient Loca tion: ED.MAIN Accession/Order Numb er: [id number] Exam Date: 06/19/2024 21:55 Report Date: 06/19/2024 23:18 At the request of: KALEY WAY Procedure: XR hand L T min 3V Examination:XR hand LT min 3V, XR shoulder LT min 2V, XR knee RT 3V INDICATION:fall, 5th metatarsal pain COMPARISON:None. TECHNIQUE:3 views of the left hand, 3 views of the right knee and 3 views of the left shoulder FINDINGS: Left hand: The bones are osteopenic. There is cortical step-off deformity in the base of the four th metacarpal bone concerning for an acute fracture. No additional acute fractures are present elsewhere in the left hand. Mild degeneration is pres ent throughout the interphalangeal joints. There is soft tissue swelling of t he left hand. Right knee: There is a faint lucency in the patella on the lateral projection which is concerning for an acute nondisplaced patellar fracture. No acute fractures are apprec iated elsewhere in the right knee. There is soft tissue swelling and a joint effusion. Left shoulder: No ac flandreau fracture or dislocations are present. Mild to moderate hypertrophic changes are present in the acromioclavicular joint. There is mild degeneration along t he inferior glenohumeral joint. Soft tissues are unremarkable. X R/XR hand LT min 3V IMPRESSION: 1. Acute fracture in the base of the fourth metacarpal bone. 2. Findings concerni ng for a nondisplaced acute patellar fracture. 3. No acute fracture is appreciated in the left shoulder. Electronically authenticated by: STACEY CUELLAR Date: 06/19/2024 23:18 Dictated By: Stacey Cuellar M.D. Signed By: 06/20/24 0001 DD/ 2318 TD/TT: Mechanical Systems Designer: PROF CHRISTO Mcleod ([facility]) Reviewed date:02/22/2025 11:42:53 AM Interpretation: Performing Lab: Notes/Report: [facility] , Sodium 144 136-145 mmol/L Potassium 3.7 3.5-5.1 mmol/L Chloride 110 98-107 mmol/L Carbon Dioxide 27.0 21.0-32.0 mmol/L Anion Gap 10.7 Glucose 126 74-106 mg/dL Blood Urea Nitrogen 23.0 7.0-18.0 mg/dL Creatinine 0.78 0.55-1.02 mg/dL Estimated GFR ( Raya >60 >=60 mL/min/1.73m 2 Estimated GFR (Non- Heidi >60 >=60 mL/min/1.73m 2 BUN Creatinine Ratio 29.5 Calcium 8.6 8.5-10.1 mg/dL Performing Lab: see note ML - [facility] LB CBC AUTO DIFF Reviewed date:02/22/2025 11:42:53 AM Interpretation: Performing Lab: Notes/Report: [facility] , White Blood Count 8.8 4.0-11.0 10 3/uL Red Blood Count 4.15 4.20-5.40 10 6/uL Hemoglobin 11.4 12.0-16.0 g/dL Hematocrit 36.6 36.0-48.0 % Mean Corpuscular Volume 88.2 81.0-99.0 fL Mean Corpuscular Hemoglobin 27.5 26.7-34.0 pg Mean Corpuscular HGB Conc 31.1 29.9-35.2 g/dL Red Cell Distribution Width 13.2 11.0-15.0 % Platelet Count 232 150-450 10 3/uL Mean Platelet Volume 10.0 9.5-13.5 fL Neutrophils Percent Auto 84.7 43.0-75.0 % Lymphocytes Percent Auto 10.6 20.5-60.0 % Monocytes Percent Auto 4.2 1.7-12.0 % Eosinophils Percent Auto 0.0 0.9-7.0 % Basophils Percent Auto 0.0 0.2-2.0 % Immature Granulocytes Pct Auto 0.5 0.0-0.5 % Neutrophils Absolute Auto 7.4 1.4-6.5 10 3/uL Lymphocytes Absolute Auto 0.9 1.2-3.8 10 3/uL Monocytes Absolute Auto 0.4 0.3-0.8 10 3/uL Eosinophils Absolute Auto 0.0 0.0-0.7 10 3/uL Basophils Absolute Auto 0.0 0.0-0.1 10 3/uL Immature Granulocytes Abs Auto 0.04 0.00-0.03 10 3/uL Performing Lab: see note ML - [facility] LB PROF CHEM 8 (BAS METB) Reviewed date:02/22/2025 11:42:53 AM Interpretation: Performing Lab: Notes/Report: [facility] , Sodium 144 136-145 mmol/L Potassium 4.2 3.5-5.1 mmol/L Chloride 108 98-107 mmol/L Carbon Dioxide 25.1 21.0-32.0 mmol/L Anion Gap 15.1 Glucose 160 74-106 mg/dL Blood Urea Nitrogen 18.0 7.0-18.0 mg/dL Creatinine 0.79 0.55-1.02 mg/dL Estimated GFR ( Raya >60 >=60 mL/min/1.73m 2 Estimated GFR (Non- Heidi >60 >=60 mL/min/1.73m 2 BUN Creatinine Ratio 22.8 Calcium 8.4 8.5-10.1 mg/dL Performing Lab: see note ML - [facility] LB MAGNESIUM Reviewed date:02/22/2025 11:42:53 AM Interpretation: Performing Lab: Notes/Report: Comment use blood already drawn this am? [facility] , Magnesium 2.3 1.8-2.4 mg/dL Performing Lab: see note ML - [facility] LB CBC AUTO DIFF Reviewed date:02/22/2025 11:42:53 AM Interpretation: Performing Lab: Notes/Report: [facility] , White Blood Count 7.5 4.0-11.0 10 3/uL Red Blood Count 4.28 4.20-5.40 10 6/uL Hemoglobin 11.7 12.0-16.0 g/dL Hematocrit 37.1 36.0-48.0 % Mean Corpuscular Volume 86.7 81.0-99.0 fL Mean Corpuscular Hemoglobin 27.3 26.7-34.0 pg Mean Corpuscular HGB Conc 31.5 29.9-35.2 g/dL Red Cell Distribution Width 13.0 11.0-15.0 % Platelet Count 243 150-450 10 3/uL Mean Platelet Volume 9.7 9.5-13.5 fL Neutrophils Percent Auto 88.6 43.0-75.0 % Lymphocytes Percent Auto 9.8 20.5-60.0 % Monocytes Percent Auto 1.3 1.7-12.0 % Eosinophils Percent Auto 0.0 0.9-7.0 % Basophils Percent Auto 0.0 0.2-2.0 % Immature Granulocytes Pct Auto 0.3 0.0-0.5 % Neutrophils Absolute Auto 6.6 1.4-6.5 10 3/uL Lymphocytes Absolute Auto 0.7 1.2-3.8 10 3/uL Monocytes Absolute Auto 0.1 0.3-0.8 10 3/uL Eosinophils Absolute Auto 0.0 0.0-0.7 10 3/uL Basophils Absolute Auto 0.0 0.0-0.1 10 3/uL Immature Granulocytes Abs Auto 0.02 0.00-0.03 10 3/uL Performing Lab: see note ML - [facility] LB SARS-CoV-2 Ag* Reviewed date:02/20/2025 12:37:15 PM Interpretation: Performing Lab: Notes/Report: [facility] , SARS-CoV-2 Ag NEGATIVE NEGATIVE This test has not been FDA cleared or approved, but has been authorized by the FDA under an Emergency Use Authorization (EUA) for use by authorized laboratories certified under CLIA that meet the requirements to perform moderate or high complexity testing. This test has been authorized only for the detection of proteins from SARS-CoV-2, not for any other viruses or pathogens. The emergency use of this test is authorized for the duration of the declaration that circumstances exist justifying the authorization of emergency use of in vitro diagnostic tests for detection and/or diagnosis of Covid-19 under section 564(b)(1) of the Act, 21 U.S.C. 360bbb-3(b)(1), unless the declaration is terminated or authorization is revoked sooner. Performing Lab: see note ML - [facility] LB Manual Differential Reviewed date:02/20/2025 12:37:15 PM Interpretation: Performing Lab: Notes/Report: [facility] , Segmented Neutrophils % Manual 87.0 43.0-75.0 Lymphocytes Percent Manual 12.0 20.5-60.0 % Monocytes Percent Manual 0.0 1.7-12.0 % Eosinophils Percent Manual 1.0 0.9-7.0 % Basophils Percent Manual 0.0 0.2-2.0 % Segmented Neut Absolute Manual 4.43 1.4-6.5 10 3/uL Lymphocytes Absolute Manual 0.61 1.20-3.80 10 3/uL Monocytes Absolute Manual 0.00 0.30-0.80 10 3/uL Eosinophils Absolute Manual 0.05 0.00-0.70 10 3/uL Basophils Abs Manual 0.00 0.00-0.10 1 0 3/uL Anisocytosis 1+ Ovalocytes 1+ Performing Lab: see note ML - [facility] LB UA RANDOM W or MICROSCOPIC Reviewed date:02/20/2025 08:01:49 PM Interpretation: Performing Lab: Notes/Report: [facility] , Color Urine LT. YELLOW YELLOW Clarity Urine CLEAR CLEAR Specific [place] Urine 1.020 1.005-1.025 pH Urine 6.0 5.0-9.0 Protein Urine NEGATIVE NEG/TRACE mg/dL Glucose Urine UA NEGATIVE NEGATIVE mg/dL Bilirubin Urine NEGATIVE NEGATIVE Ketones Urine NEGATIVE NEGATIVE mg/dL Blood Urine NEGATIVE NEGATIVE Nitrite Urine NEGATIVE NEGATIVE Urobilinogen Urine 0.2 0.2-1.0 EU/dL Leukocyte Esterase Urine NEGATIVE NEGATIVE WBC Urine NONE SEEN NONE SEEN #/HPF RBC Urine 0-2 0-2 #/HPF Bacteria Urine TRACE NONE SEEN #/HPF Mucus Urine SMALL NONE SEEN Squamous Epithelial Cell Urine RARE NONE/RARE #/LPF Crystals Seen? None Seen None Seen #/HPF Cast Seen? NONE SEEN NONE SEEN #/LPF Urine Culture Indicated NO Performing Lab: see note - [facility] RSV Reviewed date:02/20/2025 12:37:15 PM Interpretation: Performing Lab: Notes/Report: [facility] , Respiratory Syncytial Virus Not Detected NOT DETECTE Performing Lab: see note - [facility] INFLUENZA A AND B AG Reviewed date:02/20/2025 12:37:15 PM Interpretation: Performing Lab: Notes/Report: [facility] , Influenza Virus A Antigen Negative Negative for Flu A protein antigen. Infection due to Flu A cannot be ruled out. Flu A antigen in the sample may be below the detection limit of the test. Influenza Virus B Antigen Negative Negative for Flu B protein antigen. Infection due to Flu B cannot be ruled out. Flu B antigen in the sample may be below the detection limit of the test. Performing Lab: see note - [facility] Blood Culture 2 Reviewed date:02/25/2025 03:45:21 PM Interpretation: Performing Lab: Notes/Report: [facility] , Blood Culture 2 See Below For Report Blood Culture 2 NG5D NO GROWTH AT 5 DAYS.^NO GROWTH AT 5 DAYS. Performing Lab: see note - [facility] Blood Culture 1 Reviewed date:02/25/2025 03:45:21 PM Interpretation: Performing Lab: Notes/Report: [facility] , Blood Culture 1 See Below For Report Blood Culture 1 NG5D NO GROWTH AT 5 DAYS.^NO GROWTH AT 5 DAYS. Performing Lab: see note - [facility] Reason For Referral Diagnosis 1 Unspecified fracture of right patella, initial encounter for closed fracture (S82.001A) Referral Organization [facility] Referring Provider First Name Zion Referring Provider Last Name Yue Referring Provider Speciality [facility] Referred Provider Ronald Jorgensen) Referred Provider Specialty Orthopedic S urgery Referral Priority Routine Medications Medication SIG (Take, Route, Frequency, Duration) Notes Start Date End Date Status Nebulizer Mask and Tubing-Adult - Active Carafate 1 GM 1 tablet on an empty stomach Orally Twice a day Active Ondansetron 4 MG 1 tablet on the tongue and allow to dissolve Orally qid for 5 days 11/28/2024 Active CeleXA 20 MG 1 tablet Orally Once a day Active Simvastatin 20 mg TAKE 1 TABLET BY MOUTH IN THE EVENING for 90 Active Cyanocobalamin 1000 MCG 1 tablet Orally Once a day Active Singulair 10 MG 1 tablet Orally Once a day Active Amoxicillin-Pot Clavulanate 875-125 MG 1 tablet Orally every 12 hrs for 10 days 05/23/2025 Active Alendronate Sodium 70 MG 1 tablet 30 minutes before the first food, beverage or medicine of the day with plain water Orally Active Levothyroxine Sodium 125 mcg TAKE 1 TABLET BY MOUTH IN THE MORNING ON AN EMPTY STOMACH for Active Budesonide 0.5 MG/2ML 2mL Inhalation Twice a day for 30 days Rinse after use 02/15/2023 Active Allergy Relief 10 mg TAKE 1 TABLET BY MOUTH ONCE DAILY for 90 Active MiraLax 17 GM 1 packet mixed with 8 ounces of fluid Orally Once a day for 30 days 02/15/2023 Active Mciowfemkz-MASK-Akbexgz e 50-325-40 MG 1 capsule as needed Orally every 4 hrs 01/11/2024 Active Cyclobenzaprine HCl 10 MG 1 tablet Orally bid for 30 days 12/11/2024 Active Triamcinolone Acetonide 0.1 % 1 application Externally Two times a Week 04/26/2024 Active Meclizine HCl 25 MG 1 tablet as needed Orally QID 02/08/2024 Active Fosamax 70 MG 1 tablet 30 minutes before the first food, beverage or medicine of the day with plain water Orally for 30 days 06/26/2024 Active Vitamin D3 50 MCG (2000 UT) TAKE 1 CAPSULE BY MOUTH ONCE DAILY for 90 Active Albuterol Sulfate (2.5 MG/3ML) 0.083% 3mL Inhalation QID for 30 days Active LaMICtal 25 MG 1 tablet Orally Active Albuterol Sulfate HFA 108 (90 Base) MCG/ACT 2 puffs as needed for SOB Inhalation every 4 hrs for 30 days Dispense 1 inhaler Active Lansoprazole 30 mg TAKE 1 CAPSULE BY MOUTH ONCE DAILY BEFORE a meal for 90 Active Social History Tobacco Use: Social History Observation Description Date Details (start date - stop date) Never Smoker NA - NA Tobacco Control (Standard) Question Answer Notes Tobacco use: Nonsmoker AUDIT-C (Standard) Question Answer Notes Did you have a drink containing alcohol in the p ast year? 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 Problem Chronic respiratory failure (88934765) Chronic respiratory failure with hypoxia (J96.11) Active confirmed Problem Nausea (008303468) Nausea (R11.0) Active confirmed Problem Weakness (52472397) Weakness (R53.1) Active confirmed Problem Closed fracture of one rib (76748354) Fracture of one rib, right side, initial encounter for closed fracture (S22.31XA) Active confirmed Problem 271719467 Nondisplaced fracture of base of other metacarpal bone, initial encounter for closed fracture (S62.348A) Active confirmed Problem 39336999 Unspecified fracture of right patella, initial encounter for closed fracture (S82.001A) Active confirmed Problem Late effect of fracture of lower extremities (29208174) Nondisplaced fracture of fifth metatarsal bone, right foot, sequela (S92.354S) Active confirmed Problem Other specified effects of reduced temperature, initial encounter (T69.8XXA) Active confirmed Problem 93061813 Contact with and (suspected) exposure to environmental tobacco smoke (acute) (chronic) (Z77.22) Active confirmed Problem Pathological fracture (552679536) Personal history of (healed) osteoporosis fracture (Z87.310) Active confirmed Problem Acquired absence (08969253) 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) Active confirmed Problem Fatigue (68131732) Fatigue (R53.83) Active confirmed Problem Onychomycosis caused by dermatophyte (507967845) OM (onychomycosis) (B35.1) Active confirmed Problem Hyperlipidemia (50798500) Hyperlipidemia (E78.5) Active confirmed Problem Chronic obstructive pulmonary disease (75096240) Chronic obstructive pulmonary disease (J44.9) Active confirmed Problem Asthma (473901574) Asthma (J45.909) Active confirmed Problem Gastroesophageal reflux disease (190275589) GERD (gastroesophage al reflux disease) (K21.9) Active confirmed Problem Anxiety (90534419) Anxiety (F41.9) Active confirmed Problem Pneumonia (075273267) Pneumonia (J18.9) Active confirmed Problem Hypothyroid (91766765) Hypothyroid (E03.9) Active confirmed Problem Bradycardia (15841287) Bradycardia (R00.1) Active confirmed Problem Depression (263342301) Depression (F32.9) Active confirmed Problem Urinary frequency (305152515) Urinary frequency (R35.0) Active confirmed Problem Vertigo (782843954) Vertigo (R42) Active confirmed Problem Urinary incontinence (244156185) Urinary incontinence (R32) Active confirmed Problem Dizziness (799657840) Dizziness (R42) Active confirmed Problem Vitamin D deficiency (60582895) Vitamin D deficiency (E55.9) Active confirmed Problem Migraine (03445959) Migraine (G43.909) Active confirmed Problem Hypotension (39853902) Hypotension (I95.9) Active confirmed Problem Lumbar radiculopathy (119728375) Lumbar radiculopathy (M54.16) Active confirmed Problem Bronchitis (90178385) Bronchitis (J40) Active confirmed Problem Pain in limb (75052366) Foot pain, left (M79.672) Active confirmed Problem Acute sinusitis (93937047) Acute sinusitis (J01.90) Active confirmed Problem Hearing loss (80254522) Hearing loss (H91.90) Active confirmed Problem Colitis (15582643) Colitis (K52.9) Active confirmed Problem Osteoporosis (56829989) Osteoporosis (M81.0) Active confirmed Problem Fever (367066638) Fever (R50.9) Active confirme d Problem Acquired hypothyroidism (624404932) Acquired hypothyroidism (E03.9) Active confirmed Problem Cellulitis (586121228) Cellulitis (L03.90) Active confirmed Problem Interstitial lung disease (340415115) Interstitial lung disease (J84.9) Active confirmed Problem Contact dermatitis (66062930) Contact dermatitis (L25.9) Active confirmed Problem Blood in urine (84499718) Blood in urine (R31.9) Active confirmed Problem Gastroenteritis (05830682) Gastroenteritis (K52.9) Active confirmed Problem Neutropenia (463803050) Neutropenia (D70.9) Active confirmed Problem Menieres disease (03055152) Meniere disease, bilateral (H81.03) Active confirmed Problem 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) Active confirmed VATS 08/10/2022: Hypersensitivity pneumonitis Problem Acute bronchiolitis (2293921) Acute bronchiolitis (J21.9) Active confirmed Problem Closed fracture of patella (60458474) Patellar fracture (S82.009A) Active confirmed Problem Chronic obstructive pulmonary disease (57231385) Advanced COPD (J44.9) Active confirmed Problem Gastro-esophageal reflux disease (569994333) Gastro-esophage al reflux disease (K21.9) Active confirmed Problem Infection of toenail (6758874985567452 7) Infection of toenail (L03.039) Active confirmed Problem Chronic ulcerative pancolitis (429681492) Pancolitis (K51.00) Active confirmed Problem Skin sensation disturbance (93750288) Hand paresthesia (R20.2) Active confirmed Problem Exposure to second hand tobacco smoke (event) (4608223526332173 3) Secondhand smoke exposure (Z77.22) Active confirmed Problem Hypercholesterole hillary (94710589) Hypercholestero lemia (E78.00) Active confirmed Problem Mixed anxiety and depressive disorder (622447431) Anxiety and depression (F41.8) Active confirmed Problem Secondary pulmonary hypertension (52367144) Other secondary pulmonary hypertension (I27.29) Active confirmed Echo 09/06/2023; RVSP 39mmHg Problem Pulmonary hypertension (38400278) Pulmonary hypertension (I27.20) Active confirmed Problem Clostridium difficile colitis (disorder) (601359305) C. difficile colitis (A04.72) Active confirmed Problem Headache (23252961) Headache, unspecified (R51.9) Active confirmed Problem Disease caused by Severe acute respiratory syndrome coronavirus 2 (disorder) (392799563) COVID (U07.1) Active confirmed Problem Low back pain (finding) (934686358) Low back pain at multiple sites (M54.50) Active confirmed Problem Cough (finding) (84725198) Other cough (R05.8) Active confirmed Problem Depression (841506062) Depression (F32.A) Active confirmed Vital Signs Heart Rate 91 /min 03/06/2025 Temperature 97.0 degrees Fahrenheit 04/18/2025 Respiratory Rate 18 /min 06/11/2024 Oximetry 93 % 03/06/2025 Blood pressure diastolic 62 mm Hg 04/18/2025 Height 60 in 04/18/2025 Blood pressure systolic 100 mm Hg 04/18/2025 Weight 99.6 lbs 04/18/2025 BMI 19.45 kg/m2 04/18/2025 Procedures Procedure Date Ordered Date Performed Result Body Sit e Nebulizer Tx 02/19/2025 N/A Six minute walk 03/06/2025 N/A Encounters Encounter Location Date Provider Diagnosis [facility] [address] [place] [address] 06/26/2024 Zion Hogabby Patellar fracture S82.009A and H/O fall Z91.81 [facility] [address] [place] [address] 06/11/2024 Thomas Samsa Bronchiectasis, uncomplicated J47.9 ; Catalino hypersensitivity pneumonitis J67.2 ; Chronic respiratory failure with hypoxia J96.11 ; Other secondary pulmonary hypertension I27.29 ; Centrilobular emphysema J43.2 and Secondhand smoke exposure Z77.22 [facility] [address] [place] [address] 12/10/2024 Thomas Samsa Bronchiectasis, uncomplicated J47.9 ; Catalino hypersensitivity pneumonitis J67.2 ; Chronic respiratory failure with hypoxia J96.11 ; Other secondary pulmonary hypertension I27.29 ; Centrilobular emphysema J43.2 and Secondhand smoke exposure Z77.22 [facility] [address] [place] [address] 04/18/2025 Zion Hoy Centrilobular emphys dano J43.2 ; Bradycardia R00.1 and Hypotension I95.9 [facility] [address] [place] [address] 08/05/2024 Zion Hoy Centrilobular emphys dano J43.2 and COVID U07.1 [facility] [address] [place] [address] 09/02/2024 Zion Hoy Cough R05.9 ; Acute non-recurrent sinusitis, unspecified location J01.90 and Nasal congestion R09.81 [place] [address] [place] [address] 02/19/2025 Zion Hoy SOB (shortness of br eath) R06.02 [place] [address] [place] [address] 03/06/2025 Zion Hoy Centrilobular emphys dano J43.2 [place] [address] [place] [address] 11/28/2024 Zion Hoy Acute bronchitis, unspecified organism J20.9 [address] [place] [facility] [place] [address] 12/11/2024 Zion Hoy Centrilobular emphys dano J43.2 ; Low back pain at multiple sites M54.50 ; Anxiety F41.9 and Depression F32.A [place] [address] [place] [address] 05/23/2025 Zion gabby [facility] [address] [place] [address] 05/23/2025 Zion [facility] [address] [place] [address] 11/29/2024 Zion [facility] [address] [place] [address] 12/11/2024 Zion [facility] [address] [place] [address] 12/11/2024 Zion [place] [address] [place] [address] 02/17/2025 Zion Turner [facility] [address] [place] [address] 03/06/2025 Zion Turner Chronic respiratory failure with hypoxia J96.11 [facility] [address] [facility] [place] [address] 05/15/2025 Thomas Izquierdo [facility] [address] [place] [place] [address] 06/20/2024 Zion Turner [facility] [address] [place] [address] 06/27/2024 Zion Turner [facility] [address] [place] [address] 07/06/2024 Zion Turner Unspecified fracture of right patella, initial encounter for closed fracture S82.001A [facility] [address] [place] [address] 11/25/2024 Zion Turner Assessments Encounter Date Diagnosis (ICD Code) Assessment Notes Treatment Notes Treatment Clinical Notes Section Notes 06/11/2024 Bronchiectasis, uncomplicated (ICD-10 - J47.9) Bronchiectasis seems to be unchanged on HRCT. Breathing seems to be compensated with albuterol and budesonide. No adverse effects. Follow-up 6 months. 06/11/2024 Catalino hypersensitivity pneumonitis (ICD-10 - J67.2) VATS 08/10/2022: Hypersensitivity pneumonitis Biopsy on VATS consistent with hypersensitivity pneumonitis (HP) which fit with history working at a [employer]. HRCT appears to be mostly groundglass opacities, not significant fibrosis as feared. 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 Will discuss ordering HRCT at follow-up visit which would be due December 2024. 12/10/2024 Bronchiectasis, uncomplicated (ICD-10 - J47.9) Her breathing is doing fairly well considering she is recovering from hospitalization for influenza A ~2 weeks ago. She is getting by with budesonide nebs along with albuterol nebs twice daily - not requiring additional doses. Not having excessive sputum production. Continue with current plan of care. Will have her return in 6 months so we can monitor her respiratory status more slowly as she is at risk of being lost to follow-up. 06/26/2024 Patellar fracture (ICD-10 - S82.009A) if fx - want to see Dr Ferreira 06/26/2024 H/O fall (ICD-10 - Z91.81) 08/05/2024 Centrilobular emphysema (ICD-10 - J43.2) 08/05/2024 COVID (ICD-10 - U07.1) 09/02/2024 Cough (ICD-10 - R05.9) 11/28/2024 Acute bronchitis, unspecified organism (ICD-10 - J20.9) Rest and drink more liquids, especially water. You may use a humidifier or vaporizer to help keep the drainage moist. Oaes-eke-adauqza Nasal Saline may help the stuffy and runny nose. Use Ibuprofen and or Tylenol as needed for fever, chills, body aches or pain. Children 5 years old should not be given khss-elo-tcyfksy cough and cold medications such as guaifenesin and dextromethorphan. If you're over age 5, you may try ktbm-sde-fbzpimg cold medications such as guaifenesin and dextromethorphan, or multi-symptom cold reliever such as Dayquil to help reduce the symptoms. Antibiotics have been prescribed. You should take these until completed and follow the directions. Antibiotics can sometimes cause upset stomach, and in rare cases, serious allergic reactions or serious gastrointestinal problems. If you start having severe abdominal pain, severe vomiting, or bloody diarrhea, you should be reevaluated by your physician or urgent care immediately. Follow up with your Primary Care Provider or return to clinic if symptoms do not improve within 3-5 days. If you develop severe symptoms such as shortness of breath, repeated vomiting, coughing up blood, or chest pain you should go to the emergency room or call 911 12/11/2024 Centrilobular emphysema (ICD-10 - J43.2) 12/11/2024 Low back pain at multiple sites (ICD-10 - M54.50) defers on PT- worse as day ges along 02/19/2025 SOB (shortness of breath) (ICD-10 - R06.02) 03/06/2025 Centrilobular emphysema (ICD-10 - J43.2) 04/18/2025 Centrilobular emphysema (ICD-10 - J43.2) tatyana argueta her - some cough - no change in chronic dyspnea- - restarting budesonide 04/18/2025 Bradycardia (ICD-10 - R00.1) 07/06/2024 Unspecified fracture of right patella, initial encounter for closed fracture (ICD-10 - S82.001A) 03/06/2025 Chronic respiratory failure with hypoxia (ICD-10 - J96.11) 04/18/2025 Hypotension (ICD-10 - I95.9) 09/02/2024 Acute non-recurrent sinusitis, unspecified location (ICD-10 - J01.90) Rest and drink more liquids, especially water. You may use a humidifier or vaporizer to help keep the drainage moist. Cdum-luu-gnukijo Nasal Saline may help the stuffy and runny nose. Use Ibuprofen and or Tylenol as needed for fever, chills, body aches or pain. Children 5 years old should not be given lfxc-gtv-sxqnvhq cough and cold medications such as guaifenesin and dextromethorphan. If you're over age 5, you may try cmas-lzc-zovwgtn cold medications such as guaifenesin and dextromethorphan, or multi-symptom cold reliever such as Dayquil to help reduce the symptoms. Antibiotics have been prescribed. You should take these until completed and follow the directions. Antibiotics can sometimes cause upset stomach, and in rare cases, serious allergic reactions or serious gastrointestinal problems. If you start having severe abdominal pain, severe vomiting, or bloody diarrhea, you should be reevaluated by your physician or urgent care immediately. Follow up with your Primary Care Provider or return to clinic if symptoms do not improve within 3-5 days 12/11/2024 Anxiety (ICD-10 - F41.9) 12/10/2024 Catalino hypersensitivity pneumonitis (ICD-10 - J67.2) VATS 08/10/2022: Hypersensitivity pneumonitis Biopsy on VATS consistent with hypersensitivity pneumonitis (HP) which fit with history working at a [employer]. She is recovering from influenza A pneumonia, so getting HRCT may be grossly abnormal. Holding off on repeat imaging at this time. 06/11/2024 Chronic respiratory failure with hypoxia (ICD-10 - J96.11) Continue O2 at 2L/min @ HS. 06/11/2024 Other secondary pulmonary hypertension (ICD-10 - I27.29) Echo 09/06/2023; RVSP 39mmHg Mild elevation of RVSP @ 39mmHg. Likely group III associated with pulmonary issues. 12/10/2024 Chronic respiratory failure with hypoxia (ICD-10 - J96.11) She was on O2 at 2L/min @ HS but unilaterally returned the O2 because she erroneously believed she was doing well. Unfortunately, her logic falters as it is when she is asleep that her SpO2 drops, not when she is awake checking it. As she returned it, if she were to ever want it again, she was counseled that she would need to be retested in order to qualify. 09/02/2024 Nasal congestion (ICD-10 - R09.81) 12/11/2024 Depression (ICD-10 - F32.A) 12/10/2024 Other secondary pulmonary hypertension (ICD-10 - I27.29) Echo 09/06/2023; RVSP 39mmHg Mild elevation of RVSP @ 39mmHg. Likely group III associated with pulmonary issues. 06/11/2024 Centrilobular emphysema (ICD-10 - J43.2) Previously on Dulera and Spiriva, but had no benefit. More compliant with budesonide and albuterol nebs now. 12/10/2024 Centrilobular emphysema (ICD-10 - J43.2) Previously on Dulera and Spiriva, but had no benefit. More compliant with budesonide and albuterol nebs now. 06/11/2024 Secondhand smoke exposure (ICD-10 - Z77.22) 12/10/2024 Secondhand smoke exposure (ICD-10 - Z77.22) Plan Of Treatment Pending Test Test Name Order Date Six minute walk 03/06/2025 CT Knee LT without & with contrast 06/26 MRI Brain w/wo contrast * 12/29/2023 Nebulizer Tx 02/19/2025 THYROID PROFILE WITH TSH 06/26/2024 VIT B12 AND FOLATE 06/26/2024 VITAMIN B12 06/26/2024 XR LSPINE MIN 4 VIEWS 12/11/2024 XR pelvis min 3V 12/11/2024 Insurance Providers Payer Name Payer Address Payer Phone Subscriber Number Group Number Insured Name Patient Relationship to Insured Coverage Start Date Coverage End Date [employer] [place] [employer] [address] [place] [phone] [id number] Martha Apodaca Self - patient is the insured 7 Medications Administered Medication Instructions Date of Administration Dosage Notes Kenalog-40 04/26/2024 60 mg Medical (General) History Medical History History ICD Code Centrilobular emphysema J43.2 Lumbar radiculopathy M54.16 Fatigue R53.83 Interstitial lung disease J84.9 Acute bronchitis due to other specified organisms J20.8 Pneumonia J18.9 COVID-19 virus infection U07.1 Vitamin D deficiency E55.9 Hyperlipidemia E78.5 Cellulitis L03.90 Personal history of (healed) osteoporosi s fracture Z87.310 Nondisplaced fracture of fifth metatarsa l bone, right foot, sequela S92.354S Chronic obstructive pulmonary disease J4 4.9 Weakness R53.1 Headache, unspecified R51.9 Bradycardia R00.1 Fever R50.9 Bronchitis J40 Urinary incontinence R32 Urinary frequency R35.0 Blood in urine R31.9 C. difficile colitis A04.72 Colitis K52.9 Acute sinusitis J01.90 Fracture of one rib, right side, initial encounter for closed fracture S22.31XA Other cough R05.8 OM (onychomycosis) B35.1 Infection of toenail L03.039 Low back pain, unspecified M54.50 Gastroenteritis K52.9 Hand paresthesia R20.2 Nausea R11.0 Gastro-esophageal reflux disease K21.9 Other specified effects of reduced tempe rature, initial encounter T69.8XXA Foot pain, left M79.672 Hearing loss H91.90 Anxiety and depression F41.8 Hypothyroid E03.9 Hypotension I95.9 Acquired absence of other organs Z90.89 Osteoporosis M81.0 Catalino hypersensitivity pneumonitis J67.2 Bronchiectasis, uncomplicated J47.9 Other secondary pulmonary hypertension I 27.29 Chronic respiratory failure with hypoxia J96.11 Secondhand smoke exposure Z77.22 Surgical History Surgery Date(Month/Year) cholecystectomy hysterectomy tonsillectomy and adenoidectomy Bronchoscopy-Chronic Inflammation with I nterstitial Fibrosis 07/04/2022 CTS 01/2018 permanent pacemaker 03/2020 Thoracosopy-RUL & RLL 08/10/2022 Hospitalization History Reason Date(Month/Year) COPD Exacerbation-TBH 01/03/2023 dehydration 07/2019 cough 11/2020 copd 12/2021 COPD, bronchitis, pneumonia 01/2025 Influenza A 11/2024 covid 08/25
--- OUTSIDE RECORDS SUMMARY | 2025-05-29 22:09 | XMS_ITS | Encounter Summary ---
Author Organization [facility] Address [address] [address] Care Team Providers Care City Route Driver Name Role Phone Paulo Turner MD Primary Care Provider [phone] Paulo Turner MD Primary Care Provider [phone] Encounter Details Date Type Department Care Team (Late Contact Info) Description 11/18/2024 Orders Only SHAHANA SO [address] [place] [phone] Alon Mallory MD [address] [facility] [address] [place] [address] [place] [id number] Social History Tobacco Use Types Packs/Day Years [...] as of this encounter Plan of Treatment Upcoming Encounters Date Type Department Care Team (Late Contact Info) Description 06/04/2025 1:00 PM EDT Office Visit [facility] [address] [place] [address] Jr. Tony Teague, DO [address] [facility] [address] [place] [address] documented as of this encounter Procedures Procedure Name Priority Date/Time Associated Diagnosis Comments EMG AND NERVE CONDUCTION STUDY Routine 01/17/2018 12:53 PM EDT documented in this encounter Results * EMG AND NERVE CONDUCTION STUDY (01/17/2018 12:53 PM EDT) Alon Mallory MD NEUROLOGY ORDERABLES Final Re sult documented in this encounter Visit Diagnoses Not on filedocumented in this encounter Care Teams City Route Driver Relationship Specialty Start Date End Date Paulo Turner MD PCP - General Family Medicine 06/24/24 05/01/25 Paulo Turner MD [address] [place] [address] PCP - General Family Medicine 05/02/25 documented as of this encounter
--- OUTSIDE RECORDS SUMMARY | 2025-05-29 22:09 | XMS_ITS | CCD ---
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 [address]Dr. Shahbaz Rogel IG # 0.06 10e3/ul Critically high 0.00-0.03 [facility] Comment on above: Performed By: #### C BC ####[facility] [address] [place] [id number]. Shahbaz Rogel IG % 1.5 % Critically high 0.0-0.5 [facility] Comment on above: Performed By: #### C BC ####[facility] Xf[address]ypvsne[address] [place] [id number]. Shahbaz Rogel LYMPH # 0.7 103/ul Critically low 1.2-3.8 [facility] Comment on above: Performed By: #### C BC ####[facility] Qjquqokrvy9368 [place] [id number]. Shahbaz Rogel Lymphocytes/100 WBC (Bld) 16.6 % Critically low 20.5-60.0 [facility] Comment on above: Performed By: #### C BC ####[facility] Vghugtuize[address] [place] [address]Dr. Shahbaz Rogel MANUAL DIFF REQ NO Normal [facility] Comment on above: Performed By: #### C BC ####[facility] Zopbyfyemj[address] [place] [id number]. Shahbaz Rogel MCH (RBC) [Entitic mass] 27.6 pg Normal 26.7-34.0 [facility] Comment on above: Performed By: #### C BC ####[facility] Sbgsxdlqoh3017 [place] [id number]. Shahbaz Rogel MCHC (RBC) [Mass/Vol] 31.9 g/dL Normal 29.9-35.2 [facility] Comment on above: Performed By: #### C BC ####[facility] Zpymeuwjec25[address] [place] [id number]. Shahbaz Rogel MCV (RBC) [Entitic vol] 86.5 fL Normal 81.0-99.0 [facility] Comment on above: Performed By: #### C BC ####[facility] Unehdqdfsw9975 [place] [id number]. Shahbaz Rogel MONO # 0.2 103/ul Critically low 0.3-0.8 [facility] Comment on above: Performed By: #### C BC ####[facility] Xdbmvaqows9496 [place] [id number]. Shahbaz Rogel Monocytes/100 WBC (Bld) 5.0 % Normal 1.7-12.0 [facility] Comment on above: Performed By: #### C BC ####[facility] Ylhmfmgtzb9130 [place] [id number]. Shahbaz Rogel NEUT # 3.1 103/ul Normal 1.4-6.5 [facility] Comment on above: Performed By: #### C BC ####[facility] Kdbwuvldxa7742 [place] [address]Dr. Shahbaz Rogel Neutrophils/100 WBC (Bld) 76.6 % Critically high 43.0-75.0 [facility] Comment on above: Performed By: #### C BC ####[facility] Zzztxttwud5807 [place] [address]Dr. Shahbaz Rogel Platelet mean volume (Bld) [Entitic vol] 9.9 fL Normal 9.5-13.5 [facility] Comment on above: Performed By: #### C BC ####[facility] Stpjynijqt[address] [place], [place] [address]Dr. Shahbaz Rogel PLT 194 103/ul Normal 150-450 [facility] Comment on above: Performed By: #### C BC ####[facility] Djlnhntcfx3869 [place] [address]Dr. Shahbaz Rogel RBC 4.21 106/ul Normal 4.20-5.40 [facility] Comment on above: Performed By: #### C BC ####[facility] Vvdwoeliiq9[address] [place], [place] [address]Dr. Shahbaz Rogel WBC 4.0 103/ul Normal 4.0-11.0 [facility] Comment on above: Performed By: #### C BC ####[facility] Cqslshroaq[address] [place], [place] [address]Dr. Shahbaz Rogel PROF CHEM 8 (BAS METB)on Anion gap [Moles/Vol] 9.5 mmol/L Normal [facility] Comment on above: Performed By: #### B MP ####[facility] Ssxxobveiv4753 [place] [address]Dr. Shahbaz Rogel Calcium [Mass/Vol] 8.8 mg/dL Normal 8.5-10.1 [facility] Comment on above: Performed By: #### B MP ####[facility] Xsllevzjwa[address] [place], [place] [address]Dr. Shahbaz Rogel Chloride [Moles/Vol] 106 mmol/L Normal 98-107 [facility] Comment on above: Performed By: #### B MP ####[facility] Prkwzwfrfr[address] [place], [place] [address]Dr. Shahbaz Rogel CO2 [Moles/Vol] 29.6 mmol/L Normal 21.0-32.0 [facility] Comment on above: Performed By: #### B MP ####[facility] Hekpzebrah[address] [place], [place] [address]Dr. Shahbaz Rogel Creatinine [Mass/Vol] 0.80 mg/dL Normal 0.55-1.02 [facility] Comment on above: Performed By: #### B MP ####[facility] Abtuovvgme[address] [place], [place] [address]Dr. Shahbaz Rogel EGFR-AF BENINESE >60 Normal >=60 [facility] Comment on above: Performed By: #### B MP ####[facility] Mhoskkmjlc38[address] [place], [place] [address]Dr. Shahbaz Rogel EGFR-NON AF BENINESE >60 Normal >=60 [facility] Comment on above: Performed By: #### B MP ####[facility] Qciaupguqt369[address] [place], [place] [address]Dr. Shahbaz Rogel Glucose [Mass/Vol] 137 mg/dL Critically high 74-106 [facility] Comment on above: Performed By: #### B MP ####[facility] Cytmsdbqzj469[address] [place], [place] [address]Dr. Shahbaz Rogel Potassium [Moles/Vol] 4.1 mmol/L Normal 3.5-5.1 [facility] Comment on above: Performed By: #### B MP ####[facility] Goscpnakgx9260[address] [place], [place] [address]Dr. Shahbaz Rogel Sodium [Moles/Vol] 141 mmol/L Normal 136-145 [facility] Comment on above: Performed By: #### B MP ####[facility] Xqsgjczeir8414[address] [place], [place] [address]Dr. Shahbaz Rogel Urea nitrogen [Mass/Vol] 18.0 mg/dL Normal 7.0-18.0 [facility] Comment on above: Performed By: #### B MP ####[facility] Bhhegitymm778[address] [place], [place] [address]Dr. Shahbaz Rogel Urea nitrogen/Creatinine [Mass ratio] 22.5 mg/mg Normal [facility] Comment on above: Performed By: #### B MP ####[facility] Idzekkscgq6907[address] [place], [place] [address]Dr. Shahbaz Rogel CBC AUTO DIFFon 01-06-2023 BASO # 0.0 103/ul Normal 0.0-0.1 [facility] Comment on above: Performed By: #### C BC ####[facility] Igzhlylqkv4514[address] [place], [place] [address]Dr. Shahbaz Juan F Basophils/100 WBC (Bld) 0.0 % Critically low 0.2-2.0 [facility] Comment on above: Performed By: #### C BC ####[facility] Pxfxyjthlj69[address] [place], [place] [address]Dr. Shahbaz Rogel EO # 0.0 103/ul Normal 0.0-0.7 [facility] Comment on above: Performed By: #### C BC ####[facility] Juaacqkfgb[address] [place], [place] [address]Dr. Shahbaz Juan F Eosinophils/100 WBC (Bld) 0.0 % Critically low 0.9-7.0 [facility] Comment on above: Performed By: #### C BC ####[facility] Waifngeszt157[address] [place], [place] [address]Dr. Shahbaz Rogel Erythrocyte distribution width (RBC) [Ratio] 13.8 % Normal 11.0-15.0 [facility] Comment on above: Performed By: #### C BC ####[facility] Zerxvzcjjm39[address] [place] [address]Dr. Lilajarrod Rogel Hematocrit (Bld) [Volume fraction] 36.9 % Normal 36.0-48.0 [facility] Comment on above: Performed By: #### C BC ####[facility] Belgjdlwie[address] [place] [address]Dr. Shahbaz Rogel Hemoglobin (Bld) [Mass/Vol] 11.8 g/dL Critically low 12.0-16.0 [facility] Comment on above: Performed By: #### C BC ####[facility] Mixxgecwmn422[address] [place], [place] [address]Dr. Shahbaz Rogel IG # 0.04 10e3/ul Critically high 0.00-0.03 [facility] Comment on above: Performed By: #### C BC ####[facility] Shumdzpepi[address] [place], [place] [address]Dr. Shahbaz Rogel IG % 1.1 % Critically high 0.0-0.5 [facility] Comment on above: Performed By: #### C BC ####[facility] Uobvoekxiw17[address] [place], [place] [address]Dr. Shahbaz Rogel LYMPH # 0.5 103/ul Critically low 1.2-3.8 [facility] Comment on above: Performed By: #### C BC ####[facility] Egnwfkllvx[address] [place], [place] [address]Dr. Shahbaz Rogel Lymphocytes/100 WBC (Bld) 13.9 % Critically low 20.5-60.0 [facility] Comment on above: Performed By: #### C BC ####[facility] Yucjgdysja[address] [place], [place] [address]Dr. Shahbaz Rogel MANUAL DIFF REQ NO Normal [facility] Comment on above: Performed By: #### C BC ####[facility] Bvmenddnwr[address]65[address] [place], [place] [address]Dr. Shahbaz Rogel MCH (RBC) [Entitic mass] 27.8 pg Normal 26.7-34.0 [facility] Comment on above: Performed By: #### C BC ####[facility] Tuyzcygdrl46[address] [place] [id number]. Shahbaz Juan F MCHC (RBC) [Mass/Vol] 32.0 g/dL Normal 29.9-35.2 [facility] Comment on above: Performed By: #### C BC ####[facility] Mkmlezjauv6101 [place] [id number]. Shahbaz Rogel MCV (RBC) [Entitic vol] 86.8 fL Normal 81.0-99.0 [facility] Comment on above: Performed By: #### C BC ####[facility] Vemrppbfvu[address] [place], [place] [address]Dr. Shahbaz Rogel MONO # 0.1 103/ul Critically low 0.3-0.8 [facility] Comment on above: Performed By: #### C BC ####[facility] Bgnvdlblro[address] [place], [place] [address]Dr. Shahbaz Rogel Monocytes/100 WBC (Bld) 3.7 % Normal 1.7-12.0 [facility] Comment on above: Performed By: #### C BC ####[facility] Iomgkjqdfh09[address] [place], [place] [address]Dr. Shahbaz Rogel NEUT # 3.1 103/ul Normal 1.4-6.5 [facility] Comment on above: Performed By: #### C BC ####[facility] Nyehkitcmn028[address] [place], [place] [address]Dr. Shahbaz Rogel Neutrophils/100 WBC (Bld) 81.3 % Critically high 43.0-75.0 [facility] Comment on above: Performed By: #### C BC ####[facility] Qxddiwswzg549[address] [place], [place] [address]Dr. Shahbaz Rogel Platelet mean volume (Bld) [Entitic vol] 9.8 fL Normal 9.5-13.5 [facility] Comment on above: Performed By: #### C BC ####[facility] Wjoclavozu5834[address] [place], [place] [address]Dr. Shahbaz Rogel PLT 184 103/ul Normal 150-450 [facility] Comment on above: Performed By: #### C BC ####[facility] Ucztpqfuzx4196 [place] [id number]. Lilajarrod Rogel RBC 4.25 106/ul Normal 4.20-5.40 [facility] Comment on above: Performed By: #### C BC ####[facility] Czwdmrxowz1705 [place] [id number]. Lilajarrod Juan F WBC 3.8 103/ul Critically low 4.0-11.0 [facility] Comment on above: Performed By: #### C BC ####[facility] Ttwjayvttu[address] [place], [place] [address]Dr. Shahbaz Rogel PROF CHEM 8 (BAS METB)on Anion gap [Moles/Vol] 9.2 mmol/L Normal [facility] Comment on above: Performed By: #### B MP ####[facility] Jeobjnafqp[address] [place], [place] [address]Dr. Shahbaz Rogel Calcium [Mass/Vol] 8.6 mg/dL Normal 8.5-10.1 [facility] Comment on above: Performed By: #### B MP ####[facility] Hqqnqexjic[address] [place], [place] [address]Dr. Shahbaz Rogel Chloride [Moles/Vol] 107 mmol/L Normal 98-107 [facility] Comment on above: Performed By: #### B MP ####[facility] Roaktylynk65[address] [place], [place] [address]Dr. Shahbaz Rogel CO2 [Moles/Vol] 29.3 mmol/L Normal 21.0-32.0 [facility] Comment on above: Performed By: #### B MP ####[facility] Pzcrqmxxbf67[address] [place], [place] [address]Dr. Shahbaz Rogel Creatinine [Mass/Vol] 0.79 mg/dL Normal 0.55-1.02 [facility] Comment on above: Performed By: #### B MP ####[facility] Ukonqsgxxu329[address] [place], [place] [address]Dr. Shahbaz Rogel EGFR-AF BENINESE >60 Normal >=60 [facility] Comment on above: Performed By: #### B MP ####[facility] Mnsqaswdtj9517 [place] [id number]. Shahbaz Rogel EGFR-NON AF BENINESE >60 Normal >=60 [facility] Comment on above: Performed By: #### B MP ####[facility] Mvnporulkr69[address] [place] [address]Dr. Shahbaz Rogel Glucose [Mass/Vol] 159 mg/dL Critically high 74-106 [facility] Comment on above: Performed By: #### B MP ####[facility] Rlvmkrxtms9388 [place] [address]Dr. Shahbaz Rogel Potassium [Moles/Vol] 3.5 mmol/L Normal 3.5-5.1 [facility] Comment on above: Performed By: #### B MP ####[facility] Tjnqnalfxc17[address] [place], [place] [address]Dr. Shahbaz Rogel Sodium [Moles/Vol] 142 mmol/L Normal 136-145 [facility] Comment on above: Performed By: #### B MP ####[facility] Zydpvwptor[address] [place], [place] [address]Dr. Shahbaz Juan F Urea nitrogen [Mass/Vol] 21.0 mg/dL Critically high 7.0-18.0 [facility] Comment on above: Performed By: #### B MP ####[facility] Afqeirgbsf[address] [place], [place] [address]Dr. Lilajarrod Juan F Urea nitrogen/Creatinine [Mass ratio] 26.6 mg/mg Normal [facility] Comment on above: Performed By: #### B MP ####[facility] Pewbotjpsz4[address] [place] [address]Dr. Shahbaz Juan F XR CHEST 2 Von 01-06-2023 XR CHEST 2 V Normal [facility] CBC AUTO DIFFon 01-05-2023 BASO # 0.0 103/ul Normal 0.0-0.1 [facility] Comment on above: Performed By: #### C BC ####[facility] Ciealjuizb[address] [place], [place] [address]Dr. Shahbaz Rogel Basophils/100 WBC (Bld) 0.2 % Normal 0.2-2.0 [facility] Comment on above: Performed By: #### C BC ####[facility] Nyvjwzrzib[address] [place] [address]Dr. Shahbaz Rogel EO # 0.0 103/ul Normal 0.0-0.7 [facility] Comment on above: Performed By: #### C BC ####[facility] Oswaajyjtf2689 [place] [address]DrChen Lilajarrod Rogel Eosinophils/100 WBC (Bld) 0.0 % Critically low 0.9-7.0 [facility] Comment on above: Performed By: #### C BC ####[facility] Juuijyyorg[address] [place], [place] [address]Dr. Lilajarrod Rogel Erythrocyte distribution width (RBC) [Ratio] 13.6 % Normal 11.0-15.0 [facility] Comment on above: Performed By: #### C BC ####[facility] Pffyyswrtl[address] [place], [place] [address]Dr. Lilajarrod Rogel Hematocrit (Bld) [Volume fraction] 36.6 % Normal 36.0-48.0 [facility] Comment on above: Performed By: #### C BC ####[facility] Csikdlzdni065[address] [place], [place] [address]Dr. Shahbaz Rogel Hemoglobin (Bld) [Mass/Vol] 11.6 g/dL Critically low 12.0-16.0 [facility] Comment on above: Performed By: #### C BC ####[facility] Hcofzyzyju[address] [place], [place] [address]Dr. Lilajarrod Rogel IG # 0.03 10e3/ul Normal 0.00-0.03 [facility] Comment on above: Performed By: #### C BC ####[facility] Aplvtmdidi[address] [place], [place] [address]Dr. Lilajarrod Rogel IG % 0.5 % Normal 0.0-0.5 [facility] Comment on above: Performed By: #### C BC ####[facility] Coxugbiuoi360[address] [place], [place] [address]DrChen Rogel LYMPH # 0.6 103/ul Critically low 1.2-3.8 [facility] Comment on above: Performed By: #### C BC ####[facility] Scbsiylmle5[address] [place] [address]Dr. Shahbaz Rogel Lymphocytes/100 WBC (Bld) 10.7 % Critically low 20.5-60.0 [facility] Comment on above: Performed By: #### C BC ####[facility] Ywepouwgod87[address] [place] [address]DrCehn Rogel MANUAL DIFF REQ NO Normal [facility] Comment on above: Performed By: #### C BC ####[facility] Onazzxsbpi5934 [place] [id number] Rogel MCH (RBC) [Entitic mass] 27.7 pg Normal 26.7-34.0 [facility] Comment on above: Performed By: #### C BC ####[facility] Ucjffcmkom[address] [place], [place] [address]Dr. Shahbaz Rogel MCHC (RBC) [Mass/Vol] 31.7 g/dL Normal 29.9-35.2 [facility] Comment on above: Performed By: #### C BC ####[facility] Uxmtqzmsko[address] [place], [place] [address]DrChen Rogel MCV (RBC) [Entitic vol] 87.4 fL Normal 81.0-99.0 [facility] Comment on above: Performed By: #### C BC ####[facility] Jqqynhsueo[address] [place], [place] [address]DrChen Rogel MONO # 0.1 103/ul Critically low 0.3-0.8 [facility] Comment on above: Performed By: #### C BC ####[facility] Iifwwaukyv[address] [place], [place] [address]DrChen Rogel Monocytes/100 WBC (Bld) 2.5 % Normal 1.7-12.0 [facility] Comment on above: Performed By: #### C BC ####[facility] Dlabsovyql13[address] [place], [place] [address]DrChen Rogel NEUT # 4.8 103/ul Normal 1.4-6.5 [facility] Comment on above: Performed By: #### C BC ####[facility] Zalcasxupp[address] [place] [address]Dr. Shahbaz Rogel Neutrophils/100 WBC (Bld) 86.1 % Critically high 43.0-75.0 [facility] Comment on above: Performed By: #### C BC ####[facility] Jdrhsjosfg5019 [place] [phone]. Shahbaz Rogel Platelet mean volume (Bld) [Entitic vol] 10.0 fL Normal 9.5-13.5 [facility] Comment on above: Performed By: #### C BC ####[facility] Xgajrxcpcx3376 [place] [address]Dr. Shahbaz Rogel PLT 193 103/ul Normal 150-450 [facility] Comment on above: Performed By: #### C BC ####[facility] Owzsaoyxwq23[address] [place], [place] [address]Dr. Shahbaz Rogel RBC 4.19 106/ul Critically low 4.20-5.40 [facility] Comment on above: Performed By: #### C BC ####[facility] Kbxfkrinst[address] [place], [place] [address]Dr. Shahbaz Rogel WBC 5.6 103/ul Normal 4.0-11.0 [facility] Comment on above: Performed By: #### C BC ####[facility] Hvybhturdi[address]43 [place] [address]DrChen Rogel PROF CHEM 8 (BAS METB)on Anion gap [Moles/Vol] 12.7 mmol/L Normal [facility] Comment on above: Performed By: #### B MP ####[facility] Edjikiladv[address] [place], [place] [address]DrChen Rogel Calcium [Mass/Vol] 8.8 mg/dL Normal 8.5-10.1 [facility] Comment on above: Performed By: #### B MP ####[facility] Bhpkmxqhee9434 [place] [address]DrChen Rogel Chloride [Moles/Vol] 107 mmol/L Normal 98-107 [facility] Comment on above: Performed By: #### B MP ####[facility] Ancmjfmoro[address] [place] [address]Dr. Shahbaz Rogel CO2 [Moles/Vol] 26.9 mmol/L Normal 21.0-32.0 [facility] Comment on above: Performed By: #### B MP ####[facility] Duichkciud[address] [place] [address]Dr. Shahbaz Juan F Creatinine [Mass/Vol] 0.81 mg/dL Normal 0.55-1.02 [facility] Comment on above: Performed By: #### B MP ####[facility] Vonyckpocx[address] [place] [address]Dr. Lilajarrod Juan F EGFR-AF BENINESE >60 Normal >=60 [facility] Comment on above: Performed By: #### B MP ####[facility] Aqfzdtnf[address] [place], [place] [address]Dr. Shahbaz Rogel EGFR-NON AF BENINESE >60 Normal >=60 [facility] Comment on above: Performed By: #### B MP ####[facility] Jgqsxqrviq[address] [place], [place] [address]Dr. Lilajarrod Juan F Glucose [Mass/Vol] 144 mg/dL Critically high 74-106 [facility] Comment on above: Performed By: #### B MP ####[facility] Kdjbhtucez[address] [place], [place] [address]Dr. Lilajarrod Juan F Potassium [Moles/Vol] 3.6 mmol/L Normal 3.5-5.1 [facility] Comment on above: Performed By: #### B MP ####[facility] Pqsijjqbio[address] [place], [place] [address]Dr. Shahbaz Rogel Sodium [Moles/Vol] 143 mmol/L Normal 136-145 [facility] Comment on above: Performed By: #### B MP ####[facility] Hutgcfxtsy[address] [place] [address]Dr. Shahbaz Rogel Urea nitrogen [Mass/Vol] 20.0 mg/dL Critically high 7.0-18.0 [facility] Comment on above: Performed By: #### B MP ####[facility] Tjmmvlvwaq[address] [place] [address]Dr. Shahbaz Rogel Urea nitrogen/Creatinine [Mass ratio] 24.7 mg/mg Normal [facility] Comment on above: Performed By: #### B MP ####[facility] Qxpvnlpntf3686 [place] [address]Dr. Shahbaz Rogel CBC W MANUAL DIFFon 01-05-20 23 ATYPICAL LYMPH # Normal [facility] Comment on above: Performed By: #### C BCMAN ####[facility] Lmexcfhoip[address] [place] [address]Dr. Shahbaz Rogel ATYPICAL LYMPH % Normal [facility] Comment on above: Performed By: #### C BCMAN ####[facility] Snjazfmyrm[address] [place], [place] [address]Dr. Shahbaz Rogel BAND # 0.0 103/ul Normal 0.0-0.3 [facility] Comment on above: Performed By: #### C BCMAN ####[facility] Nnczcwuyih[address] [place], [place] [address]Dr. Shahbaz Rogel BAND % 0 % Normal 0-5 [facility] Comment on above: Performed By: #### C BCMAN ####[facility] Jjmddxpiiw51[address] [place], [place] [address]Dr. Shahbaz Rogel BASOM # 0.00 103/ul Normal 0.00-0.10 [facility] Comment on above: Performed By: #### C BCMAN ####[facility] Kookghvuyy[address] [place], [place] [address]Dr. Shahbaz Rogel BASOM % 0.0 % Critically low 0.2-2.0 [facility] Comment on above: Performed By: #### C BCMAN ####[facility] Islpizjfpo9[address] [place], [place] [address]Dr. Lilalan Rogel BLAST # Normal [facility] Comment on above: Performed By: #### C BCMAN ####[facility] Gxlenwkvza5[address] [place], [place] [address]Dr. Lilalan Rogel BLAST % Normal [facility] Comment on above: Performed By: #### C CAIN ####[facility] Bfmmnvpozi[address] [place] [id number]. Shahbaz Rogel CORRECTED WBC Normal 4.0-11.0 [facility] Comment on above: Performed By: #### C CAIN ####[facility] Capajfzpva6[address] [place] [id number]. Shahbaz Rogel EOS # 0.00 103/ul Normal 0.00-0.70 [facility] Comment on above: Performed By: #### C CAIN ####[facility] Xplwxbqrlq3814 [place] [id number]. Shahbaz Rogel EOS% 0.0 % Critically low 0.9-7.0 [facility] Comment on above: Performed By: #### C CAIN ####[facility] Dbeafkoqhz[address] [place] [address]Dr. Shahbaz oRgel HCT 36.5 % Normal 36.0-48.0 [facility] Comment on above: Performed By: #### C CAIN ####[facility] Nmbmejrqyf9835 [place] [id number]. Shahbaz Rogel HGB 11.8 g/dl Critically low 12.0-16.0 [facility] Comment on above: Performed By: #### C CAIN ####[facility] Gbertdqver[address] [place], [place] [address]Dr. Shahbaz Rogel LYMPHM # 0.42 103/ul Critically low 1.20-3.80 [facility] Comment on above: Performed By: #### C CAIN ####[facility] Nbnhhvlfzl[address] [place], [place] [id number]. Shahbaz Rogel LYMPHM% 12.0 % Critically low 20.5-60.0 [facility] Comment on above: Performed By: #### C CAIN ####[facility] Pwvbqaimaw9[address] [place] [address]Dr. Shahbaz Rogel MCH 28.0 pg Normal 26.7-34.0 [facility] Comment on above: Performed By: #### C CAIN ####[facility] Xrlbpwygao4366 [place] [id number]. Shahbaz Rogel MCHC 32.3 g/dl Normal 29.9-35.2 [facility] Comment on above: Performed By: #### C CAIN ####[facility] Pixthfqprw4706 [place] [id number]. Shahbaz Rogel MCV 86.7 fL Normal 81.0-99.0 [facility] Comment on above: Performed By: #### C CAIN ####[facility] Obrlssspcs5[address] [place] [id number]. Shahbaz Rogel METAMYELOCYTE # Normal [facility] Comment on above: Performed By: #### C CAIN ####[facility] Yoctajtvnk[address] [place], [place] [address]Dr. Shahbaz Rogel METAMYELOCYTE % Normal [facility] Comment on above: Performed By: #### C CAIN ####[facility] Onphgztyua[address] [place], [place] [address]Dr. Shahbaz Rogel MONOM# 0.07 103/ul Critically low 0.30-0.80 [facility] Comment on above: Performed By: #### C CAIN ####[facility] Vlgrfwumqo[address] [place], [place] [address]Dr. Shahbaz Rogel MONOM% 2.0 % Normal 1.7-12.0 [facility] Comment on above: Performed By: #### C CAIN ####[facility] Nvwmdmrlzp4072 [place] [id number]. Shahbaz Rogel MPV 9.9 fL Normal 9.5-13.5 [facility] Comment on above: Performed By: #### C CAIN ####[facility] Umwayfsjqx27[address] [place] [id number]. Shahbaz Rogel MYELOCYTE # Normal [facility] Comment on above: Performed By: #### C CAIN ####[facility] Onwzraozhw35[address] [place] [phone]. Shahbaz Rogel MYELOCYTE % Normal [facility] Comment on above: Performed By: #### C CAIN ####[facility] Iaasoukrpl9376 [place] [phone]. Shahbaz Juan F NRBC Normal [facility] Comment on above: Performed By: #### C CAIN ####[facility] Gnotrvdieo1748 [place] [id number]. Shahbaz Rogel PLT 178 103/ul Normal 150-450 [facility] Comment on above: Performed By: #### C CAIN ####[facility] Ysmraxstdo4161 [place] [id number]. Shahbaz Rogel RBC 4.21 106/ul Normal 4.20-5.40 [facility] Comment on above: Performed By: #### C CAIN ####[facility] Nqstktwmnj8[address] [place], [place] [address]Dr. Lilajarrod Juan F RDW 13.2 % Normal 11.0-15.0 [facility] Comment on above: Performed By: #### C CAIN ####[facility] Uqpfugehvu4[address] [place], [place] [address]Dr. Shahbaz Rogel SEG # 3.01 103/ul Normal 1.40-6.50 [facility] Comment on above: Performed By: #### C CAIN ####[facility] Rskhteyezx[address] [place], [place] [address]Dr. Shahbaz Juan F SEG % 86.0 % Critically high 43.0-75.0 [facility] Comment on above: Performed By: #### C CAIN ####[facility] Tgcwvokygj7173 [place] [id number]. Lilajarrod Rogel WBC 3.5 103/ul Critically low 4.0-11.0 [facility] Comment on above: Performed By: #### C CAIN ####[facility] Kghvxbsnxb13[address] [place] [phone] Rogel PROF CHEM 8 (BAS METB)on Anion gap [Moles/Vol] 10.5 mmol/L Normal Th [facility] Comment on above: Performed By: #### B MP ####[facility] Arbvygwsey[address] [place], [place] [id number] Rogel Calcium [Mass/Vol] 8.7 mg/dL Normal 8.5-10.1 [facility] Comment on above: Performed By: #### B MP ####[facility] Nsjjxkcuqd[address] [place] [address]Dr. Shahbaz Rogel Chloride [Moles/Vol] 108 mmol/L Critically high 98-107 [facility] Comment on above: Performed By: #### B MP ####[facility] Cqmzhhbdad0677 [place] [address]Dr. Lilajarrod Juan F CO2 [Moles/Vol] 25.2 mmol/L Normal 21.0-32.0 [facility] Comment on above: Performed By: #### B MP ####[facility] Tyimizrcgp10[address] [place], [place] [address]Dr. Lilajarrod Rogel Creatinine [Mass/Vol] 0.77 mg/dL Normal 0.55-1.02 [facility] Comment on above: Performed By: #### B MP ####[facility] Ykbsvtqpct[address] [place], [place] [address]Dr. Lilajarrod Juan F EGFR-AF BENINESE >60 Normal >=60 [facility] Comment on above: Performed By: #### B MP ####[facility] Zfozfenopq8[address] [place], [place] [address]Dr. Lilajarrod Juan F EGFR-NON AF BENINESE >60 Normal >=60 [facility] Comment on above: Performed By: #### B MP ####[facility] Hhhhanrcyj069[address] [place], [place] [address]Dr. Shahbaz Rogel Glucose [Mass/Vol] 169 mg/dL Critically high 74-106 [facility] Comment on above: Performed By: #### B MP ####[facility] Qytkzohxtj45[address] [place], [place] [address]Dr. Shahbaz Rogel Potassium [Moles/Vol] 3.7 mmol/L Normal 3.5-5.1 [facility] Comment on above: Performed By: #### B MP ####[facility] Zbmxutvpid340[address] [place], [place] [address]Dr. Shahbaz Rogel Sodium [Moles/Vol] 140 mmol/L Normal 136-145 [facility] Comment on above: Performed By: #### B MP ####[facility] Sipzjnwizh[address] [place], [place] [address]Dr. Lilajarrod Juan F Urea nitrogen [Mass/Vol] 14.0 mg/dL Normal 7.0-18.0 [facility] Comment on above: Performed By: #### B MP ####[facility] Mmfkrprprk[address] [place], [place] [address]Dr. Shahbaz Rogel Urea nitrogen/Creatinine [Mass ratio] 18.2 mg/mg Normal [facility] Comment on above: Performed By: #### B MP ####[facility] Ykhybzzfmp[address] [place], [place] [address]Dr. Shahbaz Rogel RESPIRATORY PANEL PLUSon Adenovirus Not detected Normal NOT DETECTED [facility] Comment on above: Performed By: #### R SPLUS ####[facility] Ocwtrjgtix[address] [place], [place] [address]Dr. Shahbaz Rogel B. Parapertusis Not detected Normal NOT DETECTED [facility] Comment on above: Performed By: #### R SPLUS ####[facility] Mkelgsecff6467[address] [place], [place] [address]Dr. Shahbaz Rogel B. Pertussis Not detected Normal NOT DETECTED [facility] Comment on above: Performed By: #### R SPLUS ####[facility] Xqfutrzzik94[address] [place], [place] [address]Dr. Shahbaz Rogel Chlamydia Pneumoniae Not detected Normal NOT DETECTED [facility] Comment on above: Performed By: #### R SPLUS ####[facility] Eoyrbryclv84[address] [place], [place] [address]Dr. Shahbaz Rogel Coronavirus 229E Not detected Normal NOT DETECTED [facility] Comment on above: Performed By: #### R SPLUS ####[facility] Rrisujfyod380[address] [place], [place] [address]Dr. Shahbaz Rogel Coronavirus HKU1 Not detected Normal NOT DETECTED [facility] Comment on above: Performed By: #### R SPLUS ####[facility] Ecnyfzoyks127[address] [place], [place] [address]Dr. Shahbaz Rogel Coronavirus NL63 Not detected Normal NOT DETECTED [facility] Comment on above: Performed By: #### R SPLUS ####[facility] Kwxlvxfpqe5736 [place] [address]Dr. Shahbaz [place] Coronavirus OC43 Not detected Normal NOT DETECTED [facility] Comment on above: Performed By: #### R SPLUS ####[facility] Sprjnxfndc01[address] [place], [place] [address]Dr. Shahbaz Rogel Influenza A H1 Not detected Normal NOT DETECTED [facility] Comment on above: Performed By: #### R SPLUS ####[facility] Opforlydcs613[address] [place], [place] [address]Dr. Shahbaz Rogel Influenza A H1 2009 Not detected Normal NOT DETECTED [facility] Comment on above: Performed By: #### R SPLUS ####[facility] Zoqxnpwhjd582[address] [place], [place] [address]Dr. Shahbaz Rogel Influenza A H3 Not detected Normal NOT DETECTED [facility] Comment on above: Performed By: #### R SPLUS ####[facility] Azdysdcqcf61[address] [place], [place] [address]Dr. Shahbaz Rogel Influenza B Not detected Normal NOT DETECTED [facility] Comment on above: Performed By: #### R SPLUS ####[facility] Leffqtuplc[address] [place], [place] [address]Dr. Shahbaz [place] Metapneumovirus Detected Abnormal NOT DETECTED [facility] Comment on above: Performed By: #### R SPLUS ####[facility] Rjnaeslrer[address] [place], [place] [address]Dr. Shahbaz Rogel Mycoplas. Pneumoniae Not detected Normal NOT DETECTED [facility] Comment on above: Performed By: #### R SPLUS ####[facility] Wamnkzohlp78[address] [place], [place] [address]Dr. Shahbaz Rogel Parainfluenza 1 Not detected Normal NOT DETECTED [facility] Comment on above: Performed By: #### R SPLUS ####[facility] Zkcwxwwosg4009[address] [place], [place] [address]Dr. jarrod Rogel Parainfluenza 2 Not detected Normal NOT DETECTED [facility] Comment on above: Performed By: #### R SPLUS ####[facility] Nsqurphwej475[address] [place], [place] [address]Dr. Shahbaz Rogel Parainfluenza 3 Not detected Normal NOT DETECTED [facility] Comment on above: Performed By: #### R SPLUS ####[facility] Gjnbqfuidb075[address] [place], [place] [address]Dr. Shahbaz Rogel Parainfluenza 4 Not detected Normal NOT DETECTED [facility] Comment on above: Performed By: #### R SPLUS ####[facility] Qrrxsudxyz8412[address] [place], [place] [address]Dr. Shahbaz Rogel Rhino/Enterovirus Not detected Normal NOT DETECTED [facility] Comment on above: Performed By: #### R SPLUS ####[facility] Jmanltpftn[address] [place], [place] [address]Dr. Shahbaz Rogel RP2 Header 1 RESPIRATORY PANEL: VIRUSES Normal [facility] Comment on above: Performed By: #### R SPLUS ####[facility] Quanklcxjl418[address] [place], [place] [address]Dr. Shahbaz Rogel RP2 Header 2 RESPIRATORY PANEL: BACTERIA Normal [facility] Comment on above: Performed By: #### R SPLUS ####[facility] Mgmkzoaozn[address] [place], [place] [address]Dr. Shahbaz Rogel RSV Not detected Normal NOT DETECTED [facility] Comment on above: Performed By: #### R SPLUS ####[facility] Plxehclgth[address] [place], [place] [address]Dr. Shahbaz Rogel SARS-CoV-2 (COVID-19) RNA PAVAN+probe Ql (Unsp spec) Not detected Normal NOT DETECTED [facility] Comment on above: Performed By: #### R SPLUS ####[facility] Yodjrghhsg[address] [place], [place] [address]Dr. Shahbaz Rogel CARDIAC ROSALINA 3-6on 3 CK [Catalytic activity/Vol] 148 U/L Normal 26-192 [facility] Comment on above: Performed By: #### C MREP ####[facility] Imlmerxxht[address] [place], [place] [address]Dr. Shahbaz Rogel CK.MB [Mass/Vol] 0.84 ng/mL Normal <=3.60 [facility] Comment on above: Performed By: #### C MREP ####[facility] Bdd[address]ppdzpq7124 [place] [address]Dr. Shahbaz Rogel HSTROP 6.4 pg/mL Normal 4.0-51.3 [facility] Comment on above: Result Comment: CUT- OFF POINTS HAVE BEEN ESTABLISHED BASED ON THE FOURTH UNIVERSAL DEFINITIONS OF MYOCARDIALINFARCTION. THE UPPER REFERENCE LIMIT (URL) OF TROPONIN, DEFINED THE 99TH PERCENTILE OFcTnI DISTRIBUTION IN A REFERENCE POPULATION, HAS BEEN CONFIRMED THE DECISION THRESHOLDFOR [place] DIAGNOSIS. Performed By: #### C MREP ####[facility] [address] [place] [address]. Shahbaz Rogel CBC W MANUAL DIFFon 01-04-20 23 ATYPICAL LYMPH # Normal [facility] Comment on above: Performed By: #### C CHANELMAN ####[facility] Shqdvrhonv[address] [place], [place] [address]Dr. Shahbaz Rogel ATYPICAL LYMPH % Normal [facility] Comment on above: Performed By: #### C BCMAN ####[facility] [address]ebff[address] [place] [address]. Shahbaz Rogel BAND # 0.0 103/ul Normal 0.0-0.3 [facility] Comment on above: Performed By: #### C BCMAN ####[facility] Qavredclgb[address] [place], [place] [address]Dr. Shahbaz Rogel BAND % 0 % Normal 0-5 [facility] Comment on above: Performed By: #### C BCMAN ####[facility] Vcyochrrjp[address]26 [place] [address]Dr. Lilajarrod Juan F BASOM # 0.00 103/ul Normal 0.00-0.10 [facility] Comment on above: Performed By: #### C BCMAN ####[facility] [address]wyonzu[address] [place] [address]. Shahbaz Rogel BASOM % 0.0 % Critically low 0.2-2.0 [facility] Comment on above: Performed By: #### C BCBRICE ####[facility] Eqebezbqre48[address] [place] [id number]. Shahbaz Rogel BLAST # Normal [facility] Comment on above: Performed By: #### C BCBRICE ####[facility] Rvmcjqiwtn9315 [place] [id number]. Shahbaz Rogel BLAST % Normal [facility] Comment on above: Performed By: #### C BCBRICE ####[facility] Lseadobdaj5[address] [place] [address]Dr. Shahbaz Rogel CORRECTED WBC Normal 4.0-11.0 [facility] Comment on above: Performed By: #### C CAIN ####[facility] Rvwmwufscz[address] [place], [place] [address]Dr. Shahbaz Rogel EOS # 0.02 103/ul Normal 0.00-0.70 [facility] Comment on above: Performed By: #### C CAIN ####[facility] Shfpcprftm[address] [place], [place] [address]Dr. Shahbaz Rogel EOS% 1.0 % Normal 0.9-7.0 [facility] Comment on above: Performed By: #### C CAIN ####[facility] Myqpqnvcbp[address] [place], [place] [address]Dr. Shahbaz Rogel HCT 37.5 % Normal 36.0-48.0 [facility] Comment on above: Performed By: #### C CAIN ####[facility] Euirytxqap72[address] [place] [address]Dr. Shahbaz Rogel HGB 12.0 g/dl Normal 12.0-16.0 [facility] Comment on above: Performed By: #### C CAIN ####[facility] Zmkkosvrpk3538 [place] [address]Dr. Shahbaz Rogel LYMPHM # 0.21 103/ul Critically low 1.20-3.80 [facility] Comment on above: Performed By: #### C CAIN ####[facility] Nsictllwzr[address] [place], [place] [address]Dr. Shahbaz Rogel LYMPHM% 13.0 % Critically low 20.5-60.0 [facility] Comment on above: Performed By: #### C CAIN ####[facility] Hzlreqfycm3547 [place] [address]Dr. Shahbaz Rogel MCH 27.8 pg Normal 26.7-34.0 [facility] Comment on above: Performed By: #### C CAIN ####[facility] Gwszibxbxy35[address] [place] [address]Dr. Shahbaz Rogel MCHC 32.0 g/dl Normal 29.9-35.2 [facility] Comment on above: Performed By: #### C CAIN ####[facility] Dyfzcarysm7554 [place] [address]Dr. Shahbaz Rogel MCV 86.8 fL Normal 81.0-99.0 [facility] Comment on above: Performed By: #### C CAIN ####[facility] Ttatkjqxka[address] [place], [place] [address]Dr. Shahbaz Rogel METAMYELOCYTE # Normal [facility] Comment on above: Performed By: #### C CAIN ####[facility] Qpoeacuwwk2536 [place] [address]Dr. Shahbaz Rogel METAMYELOCYTE % Normal [facility] Comment on above: Performed By: #### C CAIN ####[facility] Jahluagspr[address] [place], [place] [address]Dr. Shahbaz Rogel MONOM# 0.02 103/ul Critically low 0.30-0.80 [facility] Comment on above: Performed By: #### C CAIN ####[facility] Kyvinmcdau[address] [place] [address]Dr. Shahbaz Rogel MONOM% 1.0 % Critically low 1.7-12.0 [facility] [facility] Comment on above: Performed By: #### C CAIN ####[facility] [address]vncq[address] [place] [address]Dr. Shahbaz Rogel MPV 9.5 fL Normal 9.5-13.5 [facility] Comment on above: Performed By: #### C CAIN ####[facility] Xygmchfske[address] [place], [place] [id number]. Shahbaz Rogel MYELOCYTE # Normal [facility] Comment on above: Performed By: #### C CAIN ####[facility] Ebuhxubmqx37[address] [place] [id number]. Shahbaz Rogel MYELOCYTE % Normal [facility] Comment on above: Performed By: #### C CAIN ####[facility] Nbmjiaeytc9865 [place] [id number]. Shahbaz Rogel NRBC Normal [facility] Comment on above: Performed By: #### C CAIN ####[facility] Knklgxccgk4[address] [place] [id number]. Shahbaz Rogel PLT 173 103/ul Normal 150-450 [facility] Comment on above: Performed By: #### C CAIN ####[facility] Tccafrkyeg4345 [place] [id number]. Shahbaz Rogel RBC 4.32 106/ul Normal 4.20-5.40 [facility] Comment on above: Performed By: #### C CAIN ####[facility] Wdpqgbuiax5201 [place] [id number]. Shahbaz Rogel RDW 13.1 % Normal 11.0-15.0 [facility] Comment on above: Performed By: #### C CAIN ####[facility] Uisqpcddod[address] [place], [place] [id number]. Shahbaz Rogel SEG # 1.36 103/ul Critically low 1.40-6.50 [facility] Comment on above: Performed By: #### C CAIN ####[facility] Yojweaokwr[address] [place] [id number]. Shahbaz Rogel SEG % 85.0 % Critically high 43.0-75.0 [facility] Comment on above: Performed By: #### C CAIN ####[facility] Stpahkltup88[address] [place] [id number]. Shahbaz Rogel WBC 1.6 103/ul Critically low 4.0-11.0 [facility] Comment on above: Performed By: #### C CAIN ####[facility] Azmrqzeasp[address] [place], [place] [address]Dr. Lilajarrod Juan F CT CHEST WO CONon 01-03-2023 CT CHEST WO CON Normal [facility] ER URINE PROFILEon 3 Bilirubin Ql (U) Negative Normal NEGATIVE [facility] Comment on above: Performed By: #### E RUR ####[facility] Pvdtxlcges[address] [place], [place] [address]Dr. Shahbaz Rogel Clarity (U) CLEAR Normal CLEAR [facility] Comment on above: Performed By: #### E RUR ####[facility] Acwkjeapvg[address] [place], [place] [address]Dr. Lilajarrod Rogel Color (U) LT. YELLOW Normal YELLOW [facility] Comment on above: Performed By: #### E RUR ####[facility] Aujgtpxbon7[address] [place], [place] [address]Dr. Shahbaz Rogel ERUAHD A micrscopic examina tion will be performed if indicated. Normal [facility] Comment on above: Performed By: #### E RUR ####[facility] Mwtwtkyjuv[address] [place], [place] [address]Dr. Lilajarrod Rogel Glucose Ql (U) Negative Normal NEGATIVE [facility] Comment on above: Performed By: #### E RUR ####[facility] Hxuymnsejm[address] [place], [place] [address]Dr. Lilajarrod Rogel Hemoglobin Ql (U) Negative Normal NEGATIVE [facility] Comment on above: Performed By: #### E RUR ####[facility] Pzchjfuerx63[address] [place], [place] [address]Dr. Lilajarrod Rogel Ketones Ql (U) Negative Normal NEGATIVE [facility] Comment on above: Performed By: #### E RUR ####[facility] Zzxbzteoni32[address] [place], [place] [address]Dr. Lilalan Rogel LEUKOCYTES Negative Normal NEGATIVE [facility] Comment on above: Performed By: #### E RUR ####[facility] Pbvjwzfsjx[address] [place], [place] [address]Dr. Lilalan Rogel Nitrite Ql (U) Negative Normal NEGATIVE [facility] Comment on above: Performed By: #### E RUR ####[facility] Abwegqsmby12[address] [place] [address]Dr. Shahbaz Rogel pH (U) 6.0 [pH] Normal 5-9 [facility] Comment on above: Performed By: #### E RUR ####[facility] Zvxvlljvlh[address] [place], [place] [address]Dr. Shahbaz Rogel SPEC GRAVITY <=1.005 Abnormal 1.005-<=1. 025 [facility] Comment on above: Performed By: #### E RUR ####[facility] Qovmkcksyh9[address] [place], [place] [address]Dr. Shahbaz Rogel UA PROTEIN Negative Normal NEGATIVE/ TRACE [facility] Comment on above: Performed By: #### E RUR ####[facility] Chiopftcxi16[address] [place], [place] [address]Dr. Shahbaz Rogel UR MICRO IND NOT INDICATED Normal [facility] Comment on above: Performed By: #### E RUR ####[facility] Wrjnawlmiv[address] [place], [place] [address]Dr. Shahbaz Rogel Urobilinogen Qn (U) 0.2 {Melida'U}/dL Normal 0.2 - 1. 0 [facility] Comment on above: Performed By: #### E RUR ####[facility] Obitlwenpn[address] [place], [place] [address]Dr. Shahbaz Rogel LACTATE/LACTIC ACIDon 2022 Lactate [Moles/Vol] 1.5 mmol/L Normal 0.4-2.0 [facility] Comment on above: Performed By: #### L ACT ####[facility] Dprdwtmigo[address] [place], [place] [address]Dr. Shahbaz Rogel PROF CHEM 8 (BAS METB)on Anion gap [Moles/Vol] 11.6 mmol/L Normal [facility] Comment on above: Performed By: #### B MP ####[facility] Mciwujqvya[address] [place], [place] [address]Dr. Shahbaz Rogel Calcium [Mass/Vol] 8.1 mg/dL Critically low 8.5-10.1 [facility] Comment on above: Performed By: #### B MP ####[facility] Urndpmpcex[address] [place] [address]Dr. Shahbaz Rogel Chloride [Moles/Vol] 109 mmol/L Critically high 98-107 [facility] Comment on above: Performed By: #### B MP ####[facility] Gpwdncqzwu5[address] [place] [address]Dr. Shahbaz Rogel CO2 [Moles/Vol] 25.2 mmol/L Normal 21.0-32.0 [facility] Comment on above: Performed By: #### B MP ####[facility] Vshdnjsxjl3[address] [place] [address]Dr. Shahbaz Rogel Creatinine [Mass/Vol] 0.89 mg/dL Normal 0.55-1.02 [facility] Comment on above: Performed By: #### B MP ####[facility] Wgkah[address]ihu[address] [place], [place] [address]Dr. Shahbaz Rogel EGFR-AF BENINESE >60 Normal >=60 [facility] Comment on above: Performed By: #### B MP ####[facility] Npvayiayic12[address] [place] [address]Dr. Shahbaz Rogel EGFR-NON AF BENINESE >60 Normal >=60 [facility] Comment on above: Performed By: #### B MP ####[facility] Sfdjbyiasa7371 [place] [address]Dr. Shahbaz Rogel Glucose [Mass/Vol] 167 mg/dL Critically high 74-106 [facility] Comment on above: Performed By: #### B MP ####[facility] Qfrsayysts5204 [place] [address]Dr. Shahbaz Rogel Potassium [Moles/Vol] 3.8 mmol/L Normal 3.5-5.1 [facility] Comment on above: Performed By: #### B MP ####[facility] Luyoitqbjg5[address] [place] [address]Dr. Lilajarrod Rogel Sodium [Moles/Vol] 142 mmol/L Normal 136-145 [facility] Comment on above: Performed By: #### B MP ####[facility] Pzummifahp16[address] [place] [address]Dr. Shahbaz Rogel Urea nitrogen [Mass/Vol] 9.0 mg/dL Normal 7.0-18.0 [facility] Comment on above: Performed By: #### B MP ####[facility] Fw[address]qfioew[address] [place] [address]Dr. Shahbaz Rogel Urea nitrogen/Creatinine [Mass ratio] 10.1 mg/mg Normal [facility] Comment on above: Performed By: #### B MP ####[facility] Cybgjusxvr4[address] [place] [address]Dr. Shahbaz Juan F CARDIAC ROSALINA ADMITon 023 CK [Catalytic activity/Vol] 173 U/L Normal 26-192 [facility] Comment on above: Performed By: #### C EZEKIEL, BMP ####[facility] Etfjdcasks[address] [place], [place] [address]Dr. Lilajarrod Rogel CK.MB [Mass/Vol] 0.55 ng/mL Normal <=3.60 [facility] Comment on above: Performed By: #### C EZEKIEL, BMP ####[facility] Owfyqhwiqn[address] [place], [place] [address]Dr. hSahbaz Rogel HSTROP 5.9 pg/mL Normal 4.0-51.3 [facility] Comment on above: Result Comment: CUT- OFF POINTS HAVE BEEN ESTABLISHED BASED ON THE FOURTH UNIVERSAL DEFINITIONS OF MYOCARDIALINFARCTION. THE UPPER REFERENCE LIMIT (URL) OF TROPONIN, DEFINED THE 99TH PERCENTILE OFcTnI DISTRIBUTION IN A REFERENCE POPULATION, HAS BEEN CONFIRMED THE DECISION THRESHOLDFOR FL DIAGNOSIS. Performed By: #### C EZEKIEL, BMP ####[facility] Pmengjsflh4[address] [place] [address]Dr. Lilajarrod Rogel LEN 76 ng/mL Normal 9-82 [facility] Comment on above: Performed By: #### C EZEKIEL, BMP ####[facility] Snhtqichfy8637 [place] [address]Dr. Shahbaz Rogel CBC W MANUAL DIFFon 01-03-20 23 ATYPICAL LYMPH # Normal [facility] Comment on above: Performed By: #### C CAIN ####[facility] Tupibqhvhu[address] [place] [address]Dr. Shahbaz Rogel ATYPICAL LYMPH % Normal [facility] Comment on above: Performed By: #### C BCBRICE ####[facility] Vcqfjepqni9[address] [place] [address]Dr. Yilan Rogel BAND # Normal 0.0-0.3 [facility] Comment on above: Performed By: #### C BCBRICE ####[facility] Qbbgqftols32[address] [place] [address]Dr. Yilan Rogel BAND % Normal 0-5 [facility] Comment on above: Performed By: #### C CAIN ####[facility] Clkfuurkxb[address] [place], [place] [address]Dr. Shahbaz Rogel BASOM # 0.00 103/ul Normal 0.00-0.10 [facility] Comment on above: Performed By: #### C CAIN ####[facility] Tgrzuwbeui[address] [place], [place] [address]Dr. Shahbaz Rogel BASOM % 0.0 % Critically low 0.2-2.0 [facility] Comment on above: Performed By: #### C CAIN ####[facility] Lcacdzvcou[address] [place], [place] [address]Dr. Shahbaz Rogel BLAST # Normal [facility] Comment on above: Performed By: #### C CAIN ####[facility] V[address]qjdhbaa[address] [place], [place] [address]Dr. Shahbaz Rogel BLAST % Normal [facility] Comment on above: Performed By: #### C CAIN ####[facility] Cwdfdvikqx[address] [place], [place] [address]Dr. Shahbaz Rogel CORRECTED WBC Normal 4.0-11.0 [facility] Comment on above: Performed By: #### C CAIN ####[facility] Ancmaxibeu4[address] [place], [place] [address]Dr. Lilalan Rogel EOS # 0.03 103/ul Normal 0.00-0.70 [facility] Comment on above: Performed By: #### C CAIN ####[facility] Gaahlwlnpb4[address] [place] [id number]. Shahbaz Rogel EOS% 1.0 % Normal 0.9-7.0 [facility] Comment on above: Performed By: #### C CAIN ####[facility] Yvhhjxicca6795 [place] [id number]. Shahbaz Rogel HCT 42.8 % Normal 36.0-48.0 [facility] Comment on above: Performed By: #### C CAIN ####[facility] Xpljofsofc2729 [place] [id number]. Shahbaz Rogel HGB 14.1 g/dl Normal 12.0-16.0 [facility] Comment on above: Performed By: #### Cheri BARLOW ####[facility] Gsceznwfkh86[address] [place] [address]Dr. Shahbaz Rogel LYMPHM # 0.64 103/ul Critically low 1.20-3.80 [facility] Comment on above: Performed By: #### Cheri BARLOW ####[facility] Porsunvddc5346 [place] [id number]. Shahbaz Rogel LYMPHM% 23.0 % Normal 20.5-60.0 [facility] Comment on above: Performed By: #### Cheri BARLOW ####[facility] Bvlzqohuaq22[address] [place] [address]Dr. Shahbaz Rogel MCH 28.0 pg Normal 26.7-34.0 [facility] Comment on above: Performed By: #### Cheri BARLOW ####[facility] Vnrthaxvlj3507 [place] [id number]. Shahbaz Rogel MCHC 32.9 g/dl Normal 29.9-35.2 [facility] Comment on above: Performed By: #### C CAIN ####[facility] Voyytxgkmg7755 [place] [id number]. Shahbaz Rogel MCV 84.9 fL Normal 81.0-99.0 [facility] Comment on above: Performed By: #### C CAIN ####[facility] Kfttbksqwp[address] [place], [place] [address]Dr. Shahbaz Rogel METAMYELOCYTE # Normal [facility] Comment on above: Performed By: #### C CAIN ####[facility] Tyiebumijo5039 [place] [id number]. Shahbaz Rogel METAMYELOCYTE % Normal [facility] Comment on above: Performed By: #### C CAIN ####[facility] Yxqbjqjhag2858 [place] [id number]. Shahbaz Rogel MONOM# 0.31 103/ul Normal 0.30-0.80 [facility] Comment on above: Performed By: #### C CAIN ####[facility] Vmdyaqgmqb5816 [place] [id number]. Shahbaz Rogel MONOM% 11.0 % Normal 1.7-12.0 [facility] Comment on above: Performed By: #### C CAIN ####[facility] Hvtgcqnnpp8020 [place] [id number]. Shahbaz Juan F MPV 9.5 fL Normal 9.5-13.5 [facility] Comment on above: Performed By: #### C CAIN ####[facility] Sxluqzxlto0702 [place] [id number]. Shahbaz Rogel MYELOCYTE # Normal [facility] Comment on above: Performed By: #### C CAIN ####[facility] Nfumchpfox9222 [place] [id number]. Shahbaz Rogel MYELOCYTE % Normal [facility] Comment on above: Performed By: #### C CAIN ####[facility] Jaeefxhlue[address] [place], [place] [address]Dr. Shahbaz Rogel NRBC Normal [facility] Comment on above: Performed By: #### C CAIN ####[facility] Jkuckokqum[address] [place] [phone]. Shahbaz Rogel PLT 197 103/ul Normal 150-450 [facility] Comment on above: Performed By: #### C CAIN ####[facility] Ptifbpcdbl5550 [place] [id number]. Shahbaz Rogel RBC 5.04 106/ul Normal 4.20-5.40 [facility] Comment on above: Performed By: #### C CAIN ####[facility] Svjvndytgf2048 [place], [place] [address]Qn. Shahbaz Rogel RDW 13.2 % Normal 11.0-15.0 [facility] Comment on above: Performed By: #### C CAIN ####[facility] Jjzczutarh8153 [place], [place] [address]Eh. Shahbaz Rogel SEG # 1.82 103/ul Normal 1.40-6.50 [facility] Comment on above: Performed By: #### C CAIN ####[facility] Jobgccwphh5585 [place], [place] [address]Xi. Shahbaz Rogel SEG % 65.0 % Normal 43.0-75.0 [facility] Comment on above: Performed By: #### C CAIN ####[facility] Easydezmdr4940 [place], [place] [address]Rl. Shahbaz Rogel WBC 2.8 103/ul Critically low 4.0-11.0 [facility] Comment on above: Performed By: #### C CAIN ####[facility] Pbsqdwzjek0485 [place], [place] [address]Ur. Shahbaz Rogel [facility]on SARS-CoV-2 (COVID-19) RNA PAVAN+probe Ql (Unsp spec) Not detected Normal NOT DETECTED [facility] Comment on above: Result [...] for this test is supported by the [place] of Health and Human Service's declaration that [...] be used). Performed By: #### C VDTBH ####[facility] Jpuhmwzall[address] [place] [address]DrChen Rogel D-DIMERon 01-02-2023 D-DIMER 0.38 mg/L FEU Normal <=0.59 [facility] Comment on above: Performed By: #### D DIM ####[facility] Nuakzfashh[address] [place] [address]Dr. Shahbaz Rogel D-DIMER COMMENTS SEE BELOW Normal [facility] Comment on above: Result [...] generalized hospitalization. Performed By: #### D DIM ####[facility] [address]yuf[address] [place], [place] [address]Dr. Shahbaz Rogel LACTATE/LACTIC ACIDon 2022 Lactate [Moles/Vol] 2.1 mmol/L Critically high 0.4-2.0 [facility] Comment on above: Performed By: #### L ACT ####[facility] Lmvsblbeom[address] [place], [place] [address]DrChen Rogel PROF CHEM 8 (BAS METB)on Anion gap [Moles/Vol] 14.3 mmol/L Normal [facility] Comment on above: Performed By: #### C EMILIO FALCON ####[facility] S[address]fsxrznei[address] [place], [place] [address]DrChen Rogel Calcium [Mass/Vol] 9.0 mg/dL Normal 8.5-10.1 [facility] Comment on above: Performed By: #### C EMILIO FALCON ####[facility] Wzshnneuxg3[address] [place] [address]Dr. Shahbaz Rogel Chloride [Moles/Vol] 102 mmol/L Normal 98-107 [facility] Comment on above: Performed By: #### Cheri FALCON, BMP ####[facility] Ifbwnbrgcw8728 [place] [address]Dr. Shahbaz Rogel CO2 [Moles/Vol] 25.5 mmol/L Normal 21.0-32.0 [facility] Comment on above: Performed By: #### Cheri FALCON, BMP ####[facility] Hznquamkup7699 [place] [address]Dr. Shahbaz Rogel Creatinine [Mass/Vol] 1.01 mg/dL Normal 0.55-1.02 [facility] Comment on above: Performed By: #### Cheri FALCON, BMP ####[facility] Kxxbyrndpa4085 [place] [address]Dr. Shahbaz Rogel EGFR-AF BENINESE >60 Normal >=60 [facility] Comment on above: Performed By: #### Cheri FALCON, BMP ####[facility] Acipwuicbl1590 [place] [address]Dr. Shahbaz Rogel EGFR-NON AF BENINESE 56 mL/min/1.73m2 Critically low >=60 [facility] Comment on above: Performed By: #### Cheri FALCON, BMP ####[facility] Ugoyapakvs7499 [place] [address]Dr. Shahbaz Rogel Glucose [Mass/Vol] 105 mg/dL Normal 74-106 [facility] Comment on above: Performed By: #### Cheri FALCON, BMP ####[facility] Xsrbxieofy7342 [place] [address]Dr. Shahbaz Rogel Potassium [Moles/Vol] 3.8 mmol/L Normal 3.5-5.1 [facility] Comment on above: Performed By: #### Cheri FALCON, BMP ####[facility] Qalwclmyrs5729 [place] [address]Dr. Shahbaz Rogel Sodium [Moles/Vol] 138 mmol/L Normal 136-145 [facility] Comment on above: Performed By: #### Cheri FALCON, BMP ####[facility] Mdmvxmhxic2469 [place] [id number]. Shahbaz Rogel Urea nitrogen [Mass/Vol] 9.0 mg/dL Normal 7.0-18.0 [facility] Comment on above: Performed By: #### C JOSSYM, BMP ####[facility] [address]zltzgrkgr[address] [place], [place] [address]Dr. Shahbaz Rogel Urea nitrogen/Creatinine [Mass ratio] 8.9 mg/mg Normal [facility] Comment on above: Performed By: #### C EZEKIEL, BMP ####[facility] Vdevuxpupp[address] [place], [place] [address]Dr. Shahbaz Juan F XR CHEST 1 Von 01-02-2023 XR CHEST 1 V Normal [facility] INSULINon 11-02-2022 Insulin 6.0 uIU/mL Normal 2.6-24.9 [facility] Comment on above: Performed By: #### I NSULIN ####[facility] Tfgxyvocuz[address] [place], [place] [address]Dr. Shahbaz Juan F CBC AUTO DIFFon 11-01-2022 BASO # 0.0 103/ul Normal 0.0-0.1 [facility] Comment on above: Performed By: #### C BC ####[facility] Wvbqizhads[address] [place], [place] [address]Dr. Shahbaz Juan F Basophils/100 WBC (Bld) 0.5 % Normal 0.2-2.0 [facility] Comment on above: Performed By: #### C BC ####[facility] Pfeawzrfaa[address] [place], [place] [address]Dr. Shahbaz Juan F EO # 0.2 103/ul Normal 0.0-0.7 [facility] Comment on above: Performed By: #### C BC ####[facility] Rayvjobazt[address] [place], [place] [address]Dr. Shahbaz Juan F Eosinophils/100 WBC (Bld) 5.2 % Normal 0.9-7.0 [facility] Comment on above: Performed By: #### C BC ####[facility] Kwixejoegh[address] [place], [place] [address]Dr. Shahbaz Rogel Erythrocyte distribution width (RBC) [Ratio] 12.7 % Normal 11.0-15.0 [facility] Comment on above: Performed By: #### C BC ####[facility] Tolcrfzgav[address] [place] [address]Dr. Shahbaz Rogel Hematocrit (Bld) [Volume fraction] 46.4 % Normal 36.0-48.0 [facility] Comment on above: Performed By: #### C BC ####[facility] Axmrwacdsu[address] [place], [place] [address]Dr. Shahbaz Rogel Hemoglobin (Bld) [Mass/Vol] 14.9 g/dL Normal 12.0-16.0 [facility] Comment on above: Performed By: #### C BC ####[facility] Ufsflavgsq[address] [place], [place] [address]Dr. Shahbaz Rogel IG # 0.00 10e3/ul Normal 0.00-0.03 [facility] Comment on above: Performed By: #### C BC ####[facility] Iraylqfxxh[address] [place], [place] [address]Dr. Lilajarrod Rogel IG % 0.0 % Normal 0.0-0.5 [facility] Comment on above: Performed By: #### C BC ####[facility] [address] [place], [place] [address]DrChen Shahbaz Rogel LYMPH # 1.1 103/ul Critically low 1.2-3.8 [facility] Comment on above: Performed By: #### C BC ####[facility] H[address] [place], [place] [address]Dr. Lilajarrod Rogel Lymphocytes/100 WBC (Bld) 25.5 % Normal 20.5-60.0 [facility] Comment on above: Performed By: #### C BC ####[facility] Z[address] [place], [place] [address]Dr. Shahbaz Rogel MANUAL DIFF REQ NO Normal [facility] Comment on above: Performed By: #### C BC ####[facility] Jcigmxpsmt[address] [place], [place] [address]Dr. Shahbaz Rogel MCH (RBC) [Entitic mass] 27.8 pg Normal 26.7-34.0 [facility] Comment on above: Performed By: #### C BC ####[facility] [address] [place] [address]DrChen Rogel MCHC (RBC) [Mass/Vol] 32.1 g/dL Normal 29.9-35.2 [facility] Comment on above: Performed By: #### C BC ####[facility] [address] [place], [place] [address]DrChen Rogel MCV (RBC) [Entitic vol] 86.6 fL Normal 81.0-99.0 [facility] Comment on above: Performed By: #### C BC ####[facility] Ekud[address] [place], [place] [address]DrChen Rogel MONO # 0.2 103/ul Critically low 0.3-0.8 [facility] Comment on above: Performed By: #### C BC ####[facility] B[address] [place], [place] [address]DrChen Rogel Monocytes/100 WBC (Bld) 5.4 % Normal 1.7-12.0 [facility] Comment on above: Performed By: #### C BC ####[facility] [address] [place], [place] [address]DrChen Rogel NEUT # 2.7 103/ul Normal 1.4-6.5 [facility] Comment on above: Performed By: #### C BC ####[facility] [address] [place], [place] [address]DrChen Rogel Neutrophils/100 WBC (Bld) 63.4 % Normal 43.0-75.0 [facility] Comment on above: Performed By: #### C BC ####[facility] N[address] [place], [place] [address]DrChen Rogel Platelet mean volume (Bld) [Entitic vol] 9.4 fL Critically low 9.5-13.5 [facility] Comment on above: Performed By: #### C BC ####[facility] I[address]sfw[address] [place], [place] [address]Dr. Shahbaz Rogel PLT 216 103/ul Normal 150-450 [facility] Comment on above: Performed By: #### C BC ####[facility] [address] [place] [address]Dr. Shahbaz Rogel RBC 5.36 106/ul Normal 4.20-5.40 [facility] Comment on above: Performed By: #### C BC ####[facility] [address] [place] [address]Dr. Shahbaz Rogel WBC 4.2 103/ul Normal 4.0-11.0 [facility] Comment on above: Performed By: #### C BC ####[facility] [address] [place] [address]Dr. Shahbaz Rogel FREE THYROXINE INDEX T7on FTI 2.92 Normal 1.30-4.50 [facility] Comment on above: Performed By: #### C MP, LIPID, T7, TSH ####[facility] Onuxfyi[address] [place], [place] [address]Dr. Shahbaz Rogel T3U 37.0 % Normal 30.0-39.0 [facility] Comment on above: Performed By: #### C MP, LIPID, T7, TSH ####[facility] [address] [place] [address]Dr. Shahbaz Rogel T4 [Mass/Vol] 7.90 ug/dL Normal 4.80-13.90 [facility] Comment on above: Performed By: #### C MP, LIPID, T7, TSH ####[facility] [address] [place], [place] [address]Dr. Shahbaz Rogel GLYCOHEMOGLOBIN A1Con 2022 ADA RECOMMENDATION SEE BELOW Normal [facility] Comment on above: Result Comment: ADA RECOMMENDED LIMIT 4.0 - 6.0 ADA THERAPEUTIC TARGET < 7.0 ACTION SUGGESTED > 7.0 Performed By: #### A 1C ####[facility] [address] [place], [place] [address]Dr. hSahbaz Rogel Glucose [Mass/Vol] 120 mg/dL Normal [facility] Comment on above: Performed By: #### A 1C ####[facility] [address] [place] [id number]. Shahbaz Rogel HbA1c (Bld) [Mass fraction] 5.8 % Normal 4.5-6.2 [facility] Comment on above: Performed By: #### A 1C ####[facility] [address] [place] [id number]. Shahbaz Rogel IRONon 11-01-2022 Iron [Mass/Vol] 54.0 ug/dL Normal 50.0-170.0 [facility] Comment on above: Performed By: #### I GRIS ####[facility] [address] [place], [place] [id number]. Shahbaz Rogel LIPID PROFILEon 11-01-2022 CHOL-HDL RATIO NORM SEE BELOW Normal [facility] Comment on above: Result Comment: 3.3 - 4.4 LOW RISK 4.4 - 7.1 AVERAGE RISK 7.1 - 11.0 MODERATE RISK >11.0 HIGH RISK Performed By: #### C MP, LIPID, T7, TSH ####[facility] [address] [place] [id number]. Shahbaz Rogel Cholesterol [Mass/Vol] 203 mg/dL Critically high <=200 [facility] Comment on above: Performed By: #### C MP, LIPID, T7, TSH ####[facility] [address] [place] [id number]. Shahbaz Rogel Cholesterol in HDL [Mass/Vol] 42 mg/dL Normal 40-60 [facility] Comment on above: Performed By: #### C MP, LIPID, T7, TSH ####[facility] [address] [place] [id number]. Shahbaz Rogel Cholesterol in LDL [Mass/Vol] 121.4 mg/dL Normal [facility] Comment on above: Performed By: #### C MP, LIPID, T7, TSH ####[facility] [address] [place] [id number]. Shahbaz Rogel Cholesterol.total/Chol esterol in HDL [Mass ratio] 4.8 {ratio} Normal [facility] Comment on above: Performed By: #### C MP, LIPID, T7, TSH ####[facility] [address] [place] [address]Dr. Shahbaz Rogel HDL NORMAL > or = 60 mg/dl - LO W CARDIOVASCULAR RISK <40 mg/dl - HIGH CARDIOVASCULAR RISK Normal [facility] Comment on above: Performed By: #### C MP, LIPID, T7, TSH ####[facility] [address] [place] [address]Dr. Shahbaz Rogel LDL CALC NORMAL SEE BELOW Normal [facility] Comment on above: Result Comment: <100 mg/dl OPTIMAL 100 - 129 mg/dl NEAR OR ABOVE OPTIMAL 130 - 159 mg/dl BORDERLINE HIGH 160 - 189 mg/dl HIGH >190 mg/dl VERY HIGH Performed By: #### C MP, LIPID, T7, TSH ####[facility] [address] [place] [address]Dr. Shahbaz Rogel Triglyceride [Mass/Vol] 198 mg/dL Critically high <=150 [facility] Comment on above: Performed By: #### C MP, LIPID, T7, TSH ####[facility] [address] [place] [address]Dr. Shahbaz Rogel VLDL CALC 39.6 mg/dL Normal [facility] Comment on above: Performed By: #### C MP, LIPID, T7, TSH ####[facility] [address] [place] [address]Dr. Shahbaz Rogel PROF 14(COMP METB)on 023 Albumin [Mass/Vol] 4.1 g/dL Normal 3.4-5.0 [facility] Comment on above: Performed By: #### C MP, LIPID, T7, TSH ####[facility] [address] [place] [address]Dr. Shahbaz Rogel Albumin/Globulin [Mass ratio] 1.0 {ratio} Normal [facility] Comment on above: Performed By: #### C MP, LIPID, T7, TSH ####[facility] [address] [place] [address]Dr. Shahbaz Rogel ALP [Catalytic activity/Vol] 126 U/L Critically high 46-116 [facility] Comment on above: Performed By: #### C MP, LIPID, T7, TSH ####[facility] [address] [place] [address]Dr. Shahbaz Rogel ALT [Catalytic activity/Vol] 30 U/L Normal 14-59 [facility] Comment on above: Performed By: #### C MP, LIPID, T7, TSH ####[facility] [address] [place] [address]Dr. Shahbaz Rogel Anion gap [Moles/Vol] 12.3 mmol/L Normal [facility] Comment on above: Performed By: #### C MP, LIPID, T7, TSH ####[facility] [address]ftq[address] [place] [address]Dr. Shahbaz Rogel AST [Catalytic activity/Vol] 25 U/L Normal 15-37 [facility] Comment on above: Performed By: #### C MP, LIPID, T7, TSH ####[facility] [address] [place], [place] [address]Dr. Shahbaz Rogel Bilirubin [Mass/Vol] 0.5 mg/dL Normal 0.2-1.0 [facility] Comment on above: Performed By: #### C MP, LIPID, T7, TSH ####[facility] [address] [place], [place] [address]Dr. Shahbaz Rogel Calcium [Mass/Vol] 9.4 mg/dL Normal 8.5-10.1 [facility] Comment on above: Performed By: #### C MP, LIPID, T7, TSH ####[facility] [address] [place], [place] [address]Dr. Shahbaz Rogel Chloride [Moles/Vol] 104 mmol/L Normal 98-107 [facility] Comment on above: Performed By: #### C MP, LIPID, T7, TSH ####[facility] [address] [place], [place] [address]Dr. Shahbaz Rogel CO2 [Moles/Vol] 29.6 mmol/L Normal 21.0-32.0 [facility] Comment on above: Performed By: #### C MP, LIPID, T7, TSH ####[facility] [address] [place] [address]Dr. Shahbaz Rogel Creatinine [Mass/Vol] 0.91 mg/dL Normal 0.55-1.02 [facility] Comment on above: Performed By: #### C MP, LIPID, T7, TSH ####[facility] [address] [place] [address]Dr. Shahbaz Rogel EGFR-AF BENINESE >60 Normal >=60 [facility] Comment on above: Performed By: #### C MP, LIPID, T7, TSH ####[facility] [address] [place], [place] [address]Dr. Shahbaz Rogel EGFR-NON AF BENINESE >60 Normal >=60 [facility] Comment on above: Performed By: #### C MP, LIPID, T7, TSH ####[facility] [address] [place], [place] [address]Dr. Shahbaz Rogel Globulin (S) [Mass/Vol] 4.0 g/dL Normal [facility] Comment on above: Performed By: #### C MP, LIPID, T7, TSH ####[facility] [address] [place], [place] [address]Dr. Shahbaz Rogel Glucose [Mass/Vol] 85 mg/dL Normal 74-106 [facility] Comment on above: Performed By: #### C MP, LIPID, T7, TSH ####[facility] [address] [place], [place] [address]Dr. Lilajarrod Rogel Potassium [Moles/Vol] 3.9 mmol/L Normal 3.5-5.1 [facility] Comment on above: Performed By: #### C MP, LIPID, T7, TSH ####[facility] [address] [place], [place] [address]Dr. Shahbaz Rogel Protein [Mass/Vol] 8.1 g/dL Normal 6.4-8.2 [facility] Comment on above: Performed By: #### C MP, LIPID, T7, TSH ####[facility] [address] [place], [place] [address]Dr. Lilajarrod Rogel Sodium [Moles/Vol] 142 mmol/L Normal 136-145 [facility] Comment on above: Performed By: #### C MP, LIPID, T7, TSH ####[facility] [address] [place] [id number]. Lilajarrod Rogel Urea nitrogen [Mass/Vol] 9.0 mg/dL Normal 7.0-18.0 [facility] Comment on above: Performed By: #### C MP, LIPID, T7, TSH ####[facility] [address] [place] [phone]. Shahbaz Rogel Urea nitrogen/Creatinine [Mass ratio] 9.9 mg/mg Normal [facility] Comment on above: Performed By: #### C MP, LIPID, T7, TSH ####[facility] [address] [place] [address]Dr. Shahbaz Rogel TSHon 11-01-2022 TSH 0.045 uIU/mL Critically low 0.358-3.74 0 [facility] Comment on above: Performed By: #### C MP, LIPID, T7, TSH ####[facility] [address] [place] [address]Dr. Shahbaz Rogel XR HUMERUS LT MIN 2Von 10-01 XR HUMERUS LT MIN 2V Normal [facility] XR LSPINE 2_3 VIEWSon 2021 XR LSPINE 2_3 VIEWS Normal [facility] XR CHEST 1 Von 08-25-2022 XR CHEST 1 V Normal [facility] ACID FAST SMEAR AND CXon Acid Fast Culture Negative Normal [facility] Comment on above: Result Comment: No a ninfa fast bacilli isolated after 6 weeks. Performed By: #### A FB ####[facility] [address] [place] [address]Dr. Shahbaz Rogel Acid Fast Smear Negative Normal [facility] Comment on above: Performed By: #### A FB ####[facility] [address] [place], [place] [address]Dr. Shahbaz Rogel [employer] Specimen Processing Concentration Normal [facility] Comment on above: Performed By: #### A FB ####[facility] [address] [place], [place] [address]Dr. Shahbaz Rogel Bacteria identified Anaer cx Nom (Unsp spec)Ordered By: Rodolfo Harley on 08-13-2022 Anaerobic microbial culture No Anaerobes Isolated 3 Days [facility] Basophils Auto (Bld) [#/Vol] Ordered By: Rodolfo Harley on 08-12-2022 Basophils (Bld) [#/Vol] 0.0 10*3/uL 0.0-0.2 [facility] Basophils/100 WBC Auto (Bld) Ordered By: Rodolfo Harley on 08-12-2022 Basophils/100 WBC (Bld) 0.4 % . [facility] Creatinine and Glomerular fi ltration rate.predicted panel (S/P/Bld)Ordered By: Rodolfo Harley on 08-12-2022 Creatinine [Mass/Vol] 0.74 mg/dL 0.44-1.03 [facility] Eosinophils Auto (Bld) [#/Vo l]Ordered By: Rodolfo Harley on 08-12-2022 Eosinophils (Bld) [#/Vol] 0.0 10*3/uL 0.0-0.45 [facility] Eosinophils/100 WBC Auto (Bl d)Ordered By: Rodolfo Harley on 08-12-2022 Eosinophils/100 WBC (Bld) 0.0 % . [facility] Erythrocyte distribution wid th Auto (RBC) [Ratio]Ordered By: Rodolfo Harley on 08-12-2022 Erythrocyte distribution width (RBC) [Ratio] 14.2 % 11.9-15.3 [facility] Estimated glomerular filtrat ion rate (GFR) non- AmericanOrdered By: Rodolfo Harley on 08-12-2022 GFR/1.73 sq M.predicted among non-blacks MDRD (S/P/Bld) [Vol rate/Area] > 60 mL/Min [facility] Hematocrit Auto (Bld) [Volum e fraction]Ordered By: Rodolfo Harley on 08-12-2022 Hematocrit (Bld) [Volume fraction] 38.0 % 34.0-46.4 [facility] Hemoglobin [Mass/volume] in BloodOrdered By: Rodolfo Harley on 08-12-2022 Hemoglobin (Bld) [Mass/Vol] 12.5 g/dL 11.8-15.4 [facility] Laboratory - Hematology and Cell countsOrdered By: Rodolfo Harley on 08-12-2022 Nucleated RBC/100 WBC (Bld) [Ratio] 0.1 % 0-0.5 [facility] Leukocytes [#/volume] in Blo od by Automated countOrdered By: Rodolfo Harley on 08-12-2022 WBC (Bld) [#/Vol] 5.8 10*3/uL 4.5-11.0 [facility] Lymphocytes Auto (Bld) [#/Vo l]Ordered By: Rodolfo Harley on 08-12-2022 Lymphocytes (Bld) [#/Vol] 0.7 10*3/uL 1.00-4.8 [facility] Lymphocytes/100 WBC Auto (Bl d)Ordered By: Rodolfo Harley on 08-12-2022 Lymphocytes/100 WBC (Bld) 11.4 % . [facility] MCH Auto (RBC) [Entitic mass ]Ordered By: Rodolfo Harley on 08-12-2022 MCH (RBC) [Entitic mass] 28.1 pg 24.7-34.3 [facility] MCHC Auto (RBC) [Mass/Vol]Or dered By: Rodolfo Harley on 08-12-2022 MCHC (RBC) [Mass/Vol] 32.9 g/dL 32.0-35.0 [facility] MCV Auto (RBC) [Entitic vol] Ordered By: Rodolfo Harley on 08-12-2022 MCV (RBC) [Entitic vol] 85.4 fL 80-100 [facility] Monocytes Auto (Bld) [#/Vol] Ordered By: Rodolfo Harley on 08-12-2022 Monocytes (Bld) [#/Vol] 0.3 10*3/uL 0.0-0.8 [facility] Monocytes/100 WBC Auto (Bld) Ordered By: Rodolfo Harley on 08-12-2022 Monocytes/100 WBC (Bld) 4.8 % . [facility] Neutrophils Auto (Bld) [#/Vo l]Ordered By: Rodolfo Harley on 08-12-2022 Neutrophils (Bld) [#/Vol] 4.8 10*3/uL 1.8-7.7 [facility] Neutrophils/100 WBC Auto (Bl d)Ordered By: Rodolfo Harley on 08-12-2022 Neutrophils/100 WBC (Bld) 83.4 % . [facility] No Panel InformationOrdered By: Rodolfo Harley on 08-12-2022 Estimated GFR () > 60 mL/Min [facility] Comment on above: GFR estimated refere nce range: According to KDOQI guidelines, <60 ml/min/1.73m2 is sufficient to diagnose a patient with chronic kidney disease. Pharmacy Creatinine Clearance (Chem 59.45 [facility] Platelet mean volume Auto (B ld) [Entitic vol]Ordered By: Rodolfo Harley on 08-12-2022 Platelet mean volume (Bld) [Entitic vol] 7.9 fL 6.3-10.7 [facility] Platelets Auto (Bld) [#/Vol] Ordered By: Rodolfo Harley on 08-12-2022 Platelets (Bld) [#/Vol] 196 10*3/uL 150-450 [facility] RBC Auto (Bld) [#/Vol]Ordere d By: Rodolfo Harley on 08-12-2022 RBC (Bld) [#/Vol] 4.45 10*6/uL 3.60-5.00 [facility] Serum or plasma anion gap de terminationOrdered By: Rodolfo Harley on 08-12-2022 Anion gap [Moles/Vol] 7.5 mmol/L 6.0-15.0 [facility] Serum or plasma calcium dagoberto urement (mass/volume)Ordered By: Rodolfo Harley on 08-12-2022 Calcium [Mass/Vol] 8.7 mg/dL 8.2-10.2 [facility] Serum or plasma chloride anahy surement (moles/volume)Ordered By: Rodolfo Harley on 08-12-2022 Chloride [Moles/Vol] 108 mmol/L 95-114 [facility] Serum or plasma glucose dagoberto urement (mass/volume)Ordered By: Rodolfo Harley on 08-12-2022 Glucose [Mass/Vol] 133 mg/dL 70-100 [facility] Comment on above: ADA recommended refe rence rangeRandom Glucose Reference Range is dependent on time and content of last meal. Glucose of more than 200 mg/dL in a nonstressed, ambulatory subject supports the diagnosis of Diabetes Mellitus. Serum or plasma potassium me asurement (moles/volume)Ordered By: Rodolfo Harley on 08-12-2022 Potassium [Moles/Vol] 3.7 mmol/L 3.5-5.1 [facility] Serum or plasma sodium measu rement (moles/volume)Ordered By: Rodolfo Harley on 08-12-2022 Sodium [Moles/Vol] 139 mmol/L 136-146 [facility] Serum or plasma total carbon dioxide measurement (moles/volume)Ordered By: Rodolfo Harley on 08-12-2022 CO2 [Moles/Vol] 27.2 mmol/L 22.0-30.0 [facility] Serum or plasma urea nitroge n measurement (mass/volume)Ordered By: Rodolfo Harley on 08-12-2022 Urea nitrogen [Mass/Vol] 14 mg/dL 9-23 [facility] ABO and Rh group post transf usion reaction Nom (Bld)Ordered By: Rodolfo Harley on 08-10-2022 Microscopic observation Gram stain Nom (Unsp spec) [facility] AF[employer] cultureOrdered By: Sissy Harley on 08-10-2022 Mycobacterium sp identified Org specific cx Nom (Unsp spec) [facility] [employer] smearOrdered By: Rodolfo Harley on 08-10-2022 Microscopic observation Smear Nom (Unsp spec) [facility] Aerobic cultureOrdered By: Margie Harley on 08-10-2022 Bacteria identified Aer cx Nom (Unsp spec) No Growth 2 Days [facility] Anaerobic cultureOrdered By: Rodolfo Harley on 08-10-2022 Bacteria identified Anaer cx Nom (Unsp spec) No Anaerobes Isolated 3 Days [facility] Arterial blood standard base excess determination by calculationOrdered By: Rodolfo Harley on 08-10-2022 Base excess standard Calc (BldA) [Moles/Vol] 5 mmol/L -2-3 [facility] Blood carbon dioxide, total measurement by calculation (moles/volume)Ordered By: Rodolfo Harley on 08-10-2022 CO2 Calc (Bld) [Moles/Vol] 30 mmol/L 23-[address] [facility] [address] biopsyOrdered By: Rodolfo Harley on 08-10-2022 Hematocrit (Bld) [Volume fraction] 40.0 % 38.0-51.0 [facility] Fungal cultureOrdered By: Rolanda Harley on 08-10-2022 Fungus identified Cx Nom (Unsp spec) [facility] Glucose Glucometer (BldC) [M ass/Vol]Ordered By: Rodolfo Harley on 08-10-2022 Glucose [Mass/Vol] 126 mg/dL 70-105 [facility] Gram stain for investigation of transfusion reactionOrdered By: Rodolfo Harley on 08-10-2022 Microscopic observation Gram stain Nom (Unsp spec) [facility] Hemoglobin Calc (Bld) [Mass/ Vol]Ordered By: Rodolfo Harley on 08-10-2022 Hemoglobin (Bld) [Mass/Vol] 13.6 g/dL 12.0-17.0 [facility] Monocyte %Ordered By: Jean Harley on 08-10-2022 Monocyte % 39.9 mm[Hg] 35-51 [facility] Monocyte % 45 mm[Hg] 80-105 [facility] No Panel InformationOrdered By: Rodolfo Harley on 08-10-2022 Chlamydia psittaci Antibodies <1:10 Neg:<1:10 [facility] Comment on above: This test was develo ped and its performance characteristicsdetermined by [facility]. It has not been cleared or approvedby the Food and Drug Administration. The FDA hasdetermined that such clearance or approval is notnecessary.Performed at: [address] [id number] Director: Shelly Vargas MD, Phone: [phone] Potassium (Bld) [Moles/Vol]O rdered By: Rodolfo Harley on 08-10-2022 Potassium [Moles/Vol] 3.8 mmol/L 3.5-4.9 [facility] Sodium (Bld) [Moles/Vol]Orde red By: Rodolfo Harley on 08-10-2022 Sodium [Moles/Vol] 141 mmol/L 138-146 [facility] Whole blood bicarbonate dagoberto urementOrdered By: Rodolfo Harley on 08-10-2022 HCO3 (Bld) [Moles/Vol] 29.1 mmol/L 22.0-28.0 [facility] Whole blood ionized calcium measurement (moles/volume)Ordered By: Rodolfo Harley on 08-10-2022 Calcium.ionized (Bld) [Moles/Vol] 1280 mmol/L 1.12-1.32 [facility] Whole blood oxygen saturatio n measurementOrdered By: Rodolfo Harley on 08-10-2022 Oxygen saturation in Blood 84 % 95-98 [facility] Comment on above: Reference ranges ref lect baseline specimens only Whole blood pHOrdered By: Rolanda Harley on 08-10-2022 pH (Bld) 7.470 Units 7.31-7.45 [facility] Urine culture routineOrdered By: Rodolfo Harley on 08-07-2022 Bacteria identified Cx Nom (U) 2 Days [facility] Activated partial thrombopla stin time (aPTT) in platelet poor plasma by coagulation aOrdered By: Rodolfo Harley on 08-05-2022 aPTT Coag (PPP) [Time] 35.9 s 25.1-36.5 [facility] Basophils Auto (Bld) [#/Vol] Ordered By: Rodolfo Harley on 08-05-2022 Basophils (Bld) [#/Vol] 0.0 10*3/uL 0.0-0.2 [facility] Basophils/100 WBC Auto (Bld) Ordered By: Rodolfo Harley on 08-05-2022 Basophils/100 WBC (Bld) 0.5 % . [facility] Body fluid albumin measureme nt (mass/volume)Ordered By: Rodolfo Harley on 08-05-2022 Albumin (Body fld) [Mass/Vol] 3.8 g/dL 3.2-5.5 [facility] COVID-19 Positive/NegativeOr dered By: Rodolfo Harley on 08-05-2022 SARS-CoV-2 (COVID-19) N gene PAVAN+probe Ql (Resp) Negative Negative [facility] Comment on above: Testing for SARS-CoV -2 by RT-PCRThis test was developed and its performance characteristics determined by [employer] ([employer]) and validated at the [facility]. This test has not been FDA [...] on 08-05-2022 Creatinine [Mass/Vol] 0.97 mg/dL 0.44-1.03 [facility] Eosinophils Auto (Bld) [#/Vo l]Ordered By: Rodolfo Harley on 08-05-2022 Eosinophils (Bld) [#/Vol] 0.2 10*3/uL 0.0-0.45 [facility] Eosinophils/100 WBC Auto (Bl d)Ordered By: Rodolfo Harley on 08-05-2022 Eosinophils/100 WBC (Bld) 4.9 % . [facility] Erythrocyte distribution wid th Auto (RBC) [Ratio]Ordered By: Rodolfo Harley on 08-05-2022 Erythrocyte distribution width (RBC) [Ratio] 14.5 % 11.9-15.3 [facility] Estimated glomerular filtrat ion rate (GFR) non- AmericanOrdered By: Rodolfo Harley on 08-05-2022 GFR/1.73 sq M.predicted among non-blacks MDRD (S/P/Bld) [Vol rate/Area] 59 mL/Min [facility] FUNGAL CULTUREon 08-05-2022 Fungus (Mycology) Culture Final report Abnormal [facility] Comment on above: Performed By: #### C XFUN ####[facility] [address] [place] [id number]. Shahbaz Rogel Fungus Stain Final report Normal [facility] Comment on above: Performed By: #### C XFUN ####[facility] [address] [place] [id number]. Shahbaz Rogel Result 1 Comment Abnormal [facility] Comment on above: Result Comment: MILADYS/ Calcofluor preparation: no fungus observed. Performed By: #### C XFUN ####[facility] [address] [place] [address]Dr. Shahbaz Rogel Result Comment: Aspe rgillus versicolor Result 2 Penicillium species Abnormal [facility] Comment on above: Performed By: #### C XFUN ####[facility] [address] [place] [address]Dr. Shahbaz Rogel Globulin Calc (S) [Mass/Vol] Ordered By: Rodolfo Harley on 08-05-2022 Globulin (S) [Mass/Vol] 2.9 g/dL [facility] Hematocrit Auto (Bld) [Volum e fraction]Ordered By: Rodolfo Harley on 08-05-2022 Hematocrit (Bld) [Volume fraction] 43.3 % 34.0-46.4 [facility] Hemoglobin [Mass/volume] in BloodOrdered By: Rodolfo Harley on 08-05-2022 Hemoglobin (Bld) [Mass/Vol] 14.3 g/dL 11.8-15.4 [facility] Laboratory - CoagulationOrde red By: Rodolfo Harley on 08-05-2022 PT Coag (PPP) [Time] 12.4 s 9.0-12.9 [facility] - Hematology and Cell countsOrdered By: Rodolfo Harley on 08-05-2022 Nucleated RBC/100 WBC (Bld) [Ratio] 0.0 % 0-0.5 [facility] Leukocytes [#/volume] in Blo od by Automated countOrdered By: Rodolfo Harley on 08-05-2022 WBC (Bld) [#/Vol] 3.4 10*3/uL 4.5-11.0 [facility] Lymphocytes Auto (Bld) [#/Vo l]Ordered By: Rodolfo Harley on 08-05-2022 Lymphocytes (Bld) [#/Vol] 0.9 10*3/uL 1.00-4.8 [facility] Lymphocytes/100 WBC Auto (Bl d)Ordered By: Rodolfo Harley on 08-05-2022 Lymphocytes/100 WBC (Bld) 27.2 % . [facility] MCH Auto (RBC) [Entitic mass ]Ordered By: Rodolfo Harley on 08-05-2022 MCH (RBC) [Entitic mass] 28.4 pg 24.7-34.3 [facility] MCHC Auto (RBC) [Mass/Vol]Or dered By: Rodolfo Harley on 08-05-2022 MCHC (RBC) [Mass/Vol] 33.1 g/dL 32.0-35.0 [facility] MCV Auto (RBC) [Entitic vol] Ordered By: Rodolfo Harley on 08-05-2022 MCV (RBC) [Entitic vol] 85.9 fL 80-100 [facility] Monocytes Auto (Bld) [#/Vol] Ordered By: Rodolfo Harley on 08-05-2022 Monocytes (Bld) [#/Vol] 0.3 10*3/uL 0.0-0.8 [facility] Monocytes/100 WBC Auto (Bld) Ordered By: Rodolfo Harley on 08-05-2022 Monocytes/100 WBC (Bld) 7.5 % . [facility] Neutrophils Auto (Bld) [#/Vo l]Ordered By: Rodolfo Harley on 08-05-2022 Neutrophils (Bld) [#/Vol] 2.0 10*3/uL 1.8-7.7 [facility] Neutrophils/100 WBC Auto (Bl d)Ordered By: Rodolfo Harley on 08-05-2022 Neutrophils/100 WBC (Bld) 59.9 % . [facility] No Panel InformationOrdered By: Rodolfo Harley on 08-05-2022 Estimated GFR () > 60 mL/Min [facility] Comment on above: GFR estimated refere nce range: According to KDOQI guidelines, <60 ml/min/1.73m2 is sufficient to diagnose a patient with chronic kidney disease. Pharmacy Creatinine Clearance (Chem N/A [facility] Platelet mean volume Auto (B ld) [Entitic vol]Ordered By: Rodolfo Harley on 08-05-2022 Platelet mean volume (Bld) [Entitic vol] 8.1 fL 6.3-10.7 [facility] Platelet poor plasma interna tional normalized ratio (INR) by coagulation assay (relatOrdered By: Rodolfo Harley on 08-05-2022 INR Coag (PPP) [Relative time] 1.1 {INR} [facility] Comment on above: INR Therapeutic Rang [...] 08-05-2022 Platelets (Bld) [#/Vol] 243 10*3/uL 150-450 [facility] Protein [Mass/volume] in Ser um or PlasmaOrdered By: Rodolfo Harley on 08-05-2022 Protein [Mass/Vol] 6.7 g/dL 6.1-7.9 [facility] RBC Auto (Bld) [#/Vol]Ordere d By: Rodolfo Harley on 08-05-2022 RBC (Bld) [#/Vol] 5.04 10*6/uL 3.60-5.00 [facility] Serum or plasma alanine snyder otransferase measurement without P-5'-P (enzymatic activiOrdered By: Rodolfo Harley on 08-05-2022 ALT No additional P-5'-P [Catalytic activity/Vol] 14 U/L 10-60 [facility] Serum or plasma albumin/glob ulin mass ratioOrdered By: Rodolfo Harley on 08-05-2022 Albumin/Globulin [Mass ratio] 1.3 {ratio} [facility] Serum or plasma alkaline sruthi sphatase measurement (enzymatic activity/volume)Ordered By: Rodolfo Harley on 08-05-2022 ALP [Catalytic activity/Vol] 91 U/L 32-92 [facility] Serum or plasma anion gap de terminationOrdered By: Rodolfo Harley on 08-05-2022 Anion gap [Moles/Vol] 14.3 mmol/L 6.0-15.0 [facility] Serum or plasma aspartate am inotransferase measurement (enzymatic activity/volume)Ordered By: Rodolfo Harley on 08-05-2022 AST [Catalytic activity/Vol] 21 U/L 10-42 [facility] Serum or plasma calcium dagoberto urement (mass/volume)Ordered By: Rodolfo Harley on 08-05-2022 Calcium [Mass/Vol] 9.5 mg/dL 8.2-10.2 [facility] Serum or plasma chloride anahy surement (moles/volume)Ordered By: Rodolfo Harley on 08-05-2022 Chloride [Moles/Vol] 102 mmol/L 95-114 [facility] Serum or plasma glucose dagoberto urement (mass/volume)Ordered By: Rodolfo Harley on 08-05-2022 Glucose [Mass/Vol] 76 mg/dL 70-100 [facility] Comment on above: ADA recommended refe rence rangeRandom Glucose Reference Range is dependent on time and content of last meal. Glucose of more than 200 mg/dL in a nonstressed, ambulatory subject supports the diagnosis of Diabetes Mellitus. Serum or plasma potassium me asurement (moles/volume)Ordered By: Rodolfo Harley on 08-05-2022 Potassium [Moles/Vol] 3.8 mmol/L 3.5-5.1 [facility] Serum or plasma sodium measu rement (moles/volume)Ordered By: Rodolfo Harley on 08-05-2022 Sodium [Moles/Vol] 138 mmol/L 136-146 [facility] Serum or plasma total biliru bin measurement (mass/volume)Ordered By: Rodolfo Harley on 11-04-2022 Bilirubin [Mass/Vol] 0.7 mg/dL 0.3-1.2 [facility] Serum or plasma total carbon dioxide measurement (moles/volume)Ordered By: Rodolfo Harley on 08-05-2022 CO2 [Moles/Vol] 25.5 mmol/L 22.0-30.0 [facility] Serum or plasma urea nitroge n measurement (mass/volume)Ordered By: Rodolfo Harley on 08-05-2022 Urea nitrogen [Mass/Vol] 12 mg/dL 06-24 [facility] Urine culture routineOrdered By: Rodolfo Harley on 08-05-2022 Bacteria identified Cx Nom (U) 2 Days [facility] XR ANKLE LT MIN 3 Von 2021 XR ANKLE LT MIN 3 V Normal [facility] BNPon 07-06-2022 Natriuretic peptide B (Bld) [Mass/Vol] 843.0 pg/mL Normal <=900.0 [facility] Comment on above: Performed By: #### B AIR HAMMER STRIPPER, CRP, CMP ####[facility] [address] [place], [place] [address]Dr. Shahbaz Rogel CBC W MANUAL DIFFon 07-06-20 22 ATYPICAL LYMPH # Normal [facility] Comment on above: Performed By: #### C CAIN ####[facility] [address] [place], [place] [address]Dr. Shahbaz Rogel ATYPICAL LYMPH % Normal [facility] Comment on above: Performed By: #### C CAIN ####[facility] [address] [place] [address]Dr. Shahbaz Rogel BAND # 0.0 103/ul Normal 0.0-0.3 [facility] Comment on above: Performed By: #### C CAIN ####[facility] [address] [place] [address]Dr. Shahbaz Rogel BAND % 0 % Normal 0-5 [facility] Comment on above: Performed By: #### C CAIN ####[facility] [address] [place], [place] [address]Dr. Shahbaz Rogel BASOM # 0.00 103/ul Normal 0.00-0.10 [facility] Comment on above: Performed By: #### C CAIN ####[facility] [address] [place] [address]Dr. Shahbaz Rogel BASOM % 0.0 % Critically low 0.2-2.0 [facility] Comment on above: Performed By: #### C CAIN ####[facility] [address] [place] [address]Dr. Shahbaz Rogle BLAST # Normal [facility] Comment on above: Performed By: #### C CAIN ####[facility] [address] [place] [address]Dr. Shahbaz Rogel BLAST % Normal [facility] Comment on above: Performed By: #### C CAIN ####[facility] [address] [place], [place] [address]Dr. Shahbaz Rogel CORRECTED WBC Normal 4.0-11.0 [facility] Comment on above: Performed By: #### C CAIN ####[facility] [address] [place], [place] [address]Dr. Shahbaz Rogel EOS # 0.00 103/ul Normal 0.00-0.70 [facility] Comment on above: Performed By: #### C CAIN ####[facility] [address] [place], [place] [address]Dr. Shahbaz Rogel EOS% 0.0 % Critically low 0.9-7.0 [facility] Comment on above: Performed By: #### C CAIN ####[facility] [address] [place], [place] [address]Dr. Shahbaz Rogel HCT 40.3 % Normal 36.0-48.0 [facility] Comment on above: Performed By: #### C CAIN ####[facility] [address] [place], [place] [address]Dr. Shahbaz Rogel HGB 12.7 g/dl Normal 12.0-16.0 [facility] Comment on above: Performed By: #### C CAIN ####[facility] [address] [place], [place] [address]Dr. Shahbaz Rogel LYMPHM # 0.41 103/ul Critically low 1.20-3.80 [facility] Comment on above: Performed By: #### C CAIN ####[facility] [address] [place] [address]Dr. Shahbaz Rogel LYMPHM% 7.0 % Critically low 20.5-60.0 [facility] Comment on above: Performed By: #### C CAIN ####[facility] [address] [place] [address]Dr. Shahbaz Rogel MCH 28.0 pg Normal 26.7-34.0 [facility] Comment on above: Performed By: #### C CAIN ####[facility] [address]aw[address] [place], [place] [address]Dr. Shahbaz Rogel MCHC 31.5 g/dl Normal 29.9-35.2 [facility] Comment on above: Performed By: #### C CAIN ####[facility] [address] [place], [place] [address]Dr. Shahbaz Rogel MCV 89.0 fL Normal 81.0-99.0 [facility] Comment on above: Performed By: #### C CAIN ####[facility] [address] [place], [place] [address]Dr. Shahbaz Rogel METAMYELOCYTE # Normal [facility] Comment on above: Performed By: #### C CAIN ####[facility] [address] [place], [place] [address]Dr. Shahbaz Rogel METAMYELOCYTE % Normal [facility] Comment on above: Performed By: #### C CAIN ####[facility] [address] [place], [place] [address]Dr. Shahbaz Rogel MONOM# 0.00 103/ul Critically low 0.30-0.80 [facility] Comment on above: Performed By: #### C CAIN ####[facility] [address] [place], [place] [address]Dr. Shahbaz Rogel MONOM% 0.0 % Critically low 1.7-12.0 [facility] Comment on above: Performed By: #### C CAIN ####[facility] [address] [place] [id number]. Shahbaz Rogel MPV 9.8 fL Normal 9.5-13.5 [facility] Comment on above: Performed By: #### C CAIN ####[facility] [address] [place] [id number]. Shahbaz Rogel MYELOCYTE # Normal [facility] Comment on above: Performed By: #### C CAIN ####[facility] [address] [place] [id number]. Shahbaz Rogel MYELOCYTE % Normal [facility] Comment on above: Performed By: #### C CAIN ####[facility] [address] [place] [address]Dr. Shahbaz Rogel NRBC Normal [facility] Comment on above: Performed By: #### C CAIN ####[facility] [address] [place] [id number]. Shahbaz Rogel PLT 187 103/ul Normal 150-450 [facility] Comment on above: Performed By: #### C CAIN ####[facility] [address]iv[address] [place] [id number]. Shahbaz Rogel RBC 4.53 106/ul Normal 4.20-5.40 [facility] Comment on above: Performed By: #### C CAIN ####[facility] [address] [place] [id number]. Shahbaz Rogel RDW 13.3 % Normal 11.0-15.0 [facility] Comment on above: Performed By: #### C CAIN ####[facility] [address] [place] [id number]. Shahbaz Rogel SEG # 5.49 103/ul Normal 1.40-6.50 [facility] Comment on above: Performed By: #### C CAIN ####[facility] [address] [place] [id number]. Shahbaz Rogel SEG % 93.0 % Critically high 43.0-75.0 [facility] Comment on above: Performed By: #### C CAIN ####[facility] [address] [place] [address]Dr. Shahbaz Rogel WBC 5.9 103/ul Normal 4.0-11.0 [facility] Comment on above: Performed By: #### C BCMAN ####[facility] [address] [place] [address]Dr. Shahbaz Rogel CRPon 07-06-2022 CRP [Mass/Vol] mg/L Normal <=1.0 [facility] Comment on above: Performed By: #### B AIR HAMMER STRIPPER, CRP, CMP ####[facility] [address] [place] [address]Dr. Shahbaz Rogel PROF 14(COMP METB)on 022 Albumin [Mass/Vol] 3.4 g/dL Normal 3.4-5.0 [facility] Comment on above: Performed By: #### B AIR HAMMER STRIPPER, CRP, CMP ####[facility] [address] [place], [place] [address]Dr. Shahbaz Rogel Albumin/Globulin [Mass ratio] 1.0 {ratio} Normal [facility] Comment on above: Performed By: #### B AIR HAMMER STRIPPER, CRP, CMP ####[facility] [address]izml[address] [place] [address]Dr. Shahbaz Roegl ALP [Catalytic activity/Vol] 92 U/L Normal 46-116 [facility] Comment on above: Performed By: #### B AIR HAMMER STRIPPER, CRP, CMP ####[facility] [address]wdw[address] [place] [address]Dr. Shahbaz Rogel ALT [Catalytic activity/Vol] 21 U/L Normal 14-59 [facility] Comment on above: Performed By: #### B AIR HAMMER STRIPPER, CRP, CMP ####[facility] [address] [place] [address]Dr. Shahbaz Rogel Anion gap [Moles/Vol] 13.4 mmol/L Normal [facility] Comment on above: Performed By: #### B AIR HAMMER STRIPPER, CRP, CMP ####[facility] [address]jxlc[address] [place] [address]Dr. Shahbaz Rogel AST [Catalytic activity/Vol] 16 U/L Normal 15-37 [facility] Comment on above: Performed By: #### B AIR HAMMER STRIPPER, CRP, CMP ####[facility] [address]awr[address] [place] [address]Dr. Shahbaz Rogel Bilirubin [Mass/Vol] 0.2 mg/dL Normal 0.2-1.0 [facility] Comment on above: Performed By: #### B AIR HAMMER STRIPPER, CRP, CMP ####[facility] Bhspcksoss[address] [place] [address]Dr. Shahbaz Rogel Calcium [Mass/Vol] 9.3 mg/dL Normal 8.5-10.1 [facility] Comment on above: Performed By: #### B AIR HAMMER STRIPPER, CRP, CMP ####[facility] [address] [place], [place] [address]Dr. Shahbaz Rogel Chloride [Moles/Vol] 105 mmol/L Normal 98-107 [facility] Comment on above: Performed By: #### B AIR HAMMER STRIPPER, CRP, CMP ####[facility] Z[address] [place], [place] [address]Dr. Shahbaz Rogel CO2 [Moles/Vol] 23.2 mmol/L Normal 21.0-32.0 [facility] Comment on above: Performed By: #### B AIR HAMMER STRIPPER, CRP, CMP ####[facility] Pr[address] [place], [place] [address]Dr. Shahbaz Rogel Creatinine [Mass/Vol] 1.23 mg/dL Critically high 0.55-1.02 [facility] Comment on above: Performed By: #### B AIR HAMMER STRIPPER, CRP, CMP ####[facility] [address] [place], [place] [address]Dr. Shahbaz Rogel EGFR-AF BENINESE 55 mL/min/1.73m2 Critically low >=60 [facility] Comment on above: Performed By: #### B AIR HAMMER STRIPPER, CRP, CMP ####[facility] [address]arsse[address] [place], [place] [address]Dr. Shahbaz Rogel EGFR-NON AF BENINESE 45 mL/min/1.73m2 Critically low >=60 [facility] Comment on above: Performed By: #### B AIR HAMMER STRIPPER, CRP, CMP ####[facility] [address]leuezb[address] [place] [address]Dr. Shahbaz Rogel Globulin (S) [Mass/Vol] 3.3 g/dL Normal [facility] Comment on above: Performed By: #### B AIR HAMMER STRIPPER, CRP, CMP ####[facility] [address]jc[address]mp[address] [place] [address]Dr. Shahbaz Rogel Glucose [Mass/Vol] 171 mg/dL Critically high 74-106 T [facility] Comment on above: Performed By: #### B AIR HAMMER STRIPPER, CRP, CMP ####[facility] Xhrk[address] [place], [place] [address]Dr. Shahbaz Rogel Potassium [Moles/Vol] 3.6 mmol/L Normal 3.5-5.1 [facility] Comment on above: Performed By: #### B AIR HAMMER STRIPPER, CRP, CMP ####[facility] [address]ofaezas[address] [place], [place] [address]Dr. Shahbaz Rogel Protein [Mass/Vol] 6.7 g/dL Normal 6.4-8.2 [facility] Comment on above: Performed By: #### B AIR HAMMER STRIPPER, CRP, CMP ####[facility] [address]zy[address] [place], [place] [address]Dr. Shahbaz Rogel Sodium [Moles/Vol] 138 mmol/L Normal 136-145 [facility] Comment on above: Performed By: #### B AIR HAMMER STRIPPER, CRP, CMP ####[facility] [address] [place], [place] [address]Dr. Shahbaz Rogel Urea nitrogen [Mass/Vol] 21.0 mg/dL Critically high 7.0-18.0 [facility] Comment on above: Performed By: #### B AIR HAMMER STRIPPER, CRP, CMP ####[facility] Pys[address] [place], [place] [address]Dr. Shahbaz Rogel Urea nitrogen/Creatinine [Mass ratio] 17.1 mg/mg Normal [facility] Comment on above: Performed By: #### B AIR HAMMER STRIPPER, CRP, CMP ####[facility] [address] [place], [place] [address]Dr. Shahbaz Rogel XR CHEST 2 Von 07-06-2022 XR CHEST 2 V Normal [facility] BNPon 07-05-2022 Natriuretic peptide B (Bld) [Mass/Vol] 83.0 pg/mL Normal <=900.0 [facility] Comment on above: Performed By: #### C RP, CMP, BNP ####[facility] [address] [place] [address]Dr. Shahbaz Juan F CBC AUTO DIFFon 07-05-2022 BASO # 0.0 103/ul Normal 0.0-0.1 [facility] Comment on above: Performed By: #### C BC ####[facility] [address] [place], [place] [address]Dr. Lilajarrod Rogel Basophils/100 WBC (Bld) 0.4 % Normal 0.2-2.0 [facility] Comment on above: Performed By: #### C BC ####[facility] [address] [place], [place] [address]Dr. Lilajarrod Rogel EO # 0.1 103/ul Normal 0.0-0.7 [facility] Comment on above: Performed By: #### C BC ####[facility] [address] [place], [place] [address]Dr. Lilajarrod Rogel Eosinophils/100 WBC (Bld) 2.9 % Normal 0.9-7.0 [facility] Comment on above: Performed By: #### C BC ####[facility] [address] [place], [place] [address]Dr. Shahbaz Rogel Erythrocyte distribution width (RBC) [Ratio] 13.4 % Normal 11.0-15.0 [facility] Comment on above: Performed By: #### C BC ####[facility] [address] [place], [place] [address]Dr. Shahbaz Rogel Hematocrit (Bld) [Volume fraction] 41.7 % Normal 36.0-48.0 [facility] Comment on above: Performed By: #### C BC ####[facility] [address] [place], [place] [address]Dr. Lilajarrod Rogel Hemoglobin (Bld) [Mass/Vol] 12.9 g/dL Normal 12.0-16.0 [facility] Comment on above: Performed By: #### C BC ####[facility] [address] [place] [id number]. Shahbaz Rogel IG # 0.00 10e3/ul Normal 0.00-0.03 [facility] Comment on above: Performed By: #### C BC ####[facility] [address] [place] [id number]. Shahbaz Rogel IG % 0.0 % Normal 0.0-0.5 [facility] Comment on above: Performed By: #### C BC ####[facility] [address] [place] [address]Dr. Shahbaz Rogel LYMPH # 1.5 103/ul Normal 1.2-3.8 [facility] Comment on above: Performed By: #### C BC ####[facility] [address] [place], [place] [address]Dr. Shahbaz Rogel Lymphocytes/100 WBC (Bld) 32.9 % Normal 20.5-60.0 [facility] Comment on above: Performed By: #### C BC ####[facility] [address]fr[address]tr[address] [place] [address]Dr. Shahbaz Rogel MANUAL DIFF REQ NO Normal [facility] Comment on above: Performed By: #### C BC ####[facility] [address] [place], [place] [address]Dr. Shahbaz Rogel MCH (RBC) [Entitic mass] 28.0 pg Normal 26.7-34.0 [facility] Comment on above: Performed By: #### C BC ####[facility] Iz[address] [place], [place] [address]Dr. Shahbaz Rogel MCHC (RBC) [Mass/Vol] 30.9 g/dL Normal 29.9-35.2 [facility] Comment on above: Performed By: #### C BC ####[facility] Exdizojrsv[address] [place] [address]Dr. Shahbaz Rogel MCV (RBC) [Entitic vol] 90.5 fL Normal 81.0-99.0 [facility] Comment on above: Performed By: #### C BC ####[facility] Bthvgodwzy[address] [place] [id number]. Shahbaz Rogel MONO # 0.4 103/ul Normal 0.3-0.8 [facility] Comment on above: Performed By: #### C BC ####[facility] Clqfkzkluq2371 [place] [id number]. Shahbaz Rogel Monocytes/100 WBC (Bld) 8.0 % Normal 1.7-12.0 [facility] Comment on above: Performed By: #### C BC ####[facility] Nhcwcbemyw6757 [place] [id number]. Shahbaz Rogel NEUT # 2.5 103/ul Normal 1.4-6.5 [facility] Comment on above: Performed By: #### C BC ####[facility] Xdxpvehneq3925 [place] [id number]. Shahbaz Rogel Neutrophils/100 WBC (Bld) 55.8 % Normal 43.0-75.0 [facility] Comment on above: Performed By: #### C BC ####[facility] Ygzoxcddvc3177 [place] [id number]. Shahbaz Rogel Platelet mean volume (Bld) [Entitic vol] 9.7 fL Normal 9.5-13.5 [facility] Comment on above: Performed By: #### C BC ####[facility] Xmxorgjhht6244 [place] [id number]. Shahbaz Rogel PLT 158 103/ul Normal 150-450 [facility] Comment on above: Performed By: #### C BC ####[facility] Zdggaqdzmb5024 [place] [id number]. Shahbaz Rogel RBC 4.61 106/ul Normal 4.20-5.40 [facility] Comment on above: Performed By: #### C BC ####[facility] Wpvokhpprc3723 [place] [address]Dr. Shahbaz Rogel WBC 4.5 103/ul Normal 4.0-11.0 [facility] Comment on above: Performed By: #### C BC ####[facility] Ofuuarkg[address] [place], [place] [id number]. Shahbaz Rogel CRPon 07-05-2022 CRP [Mass/Vol] mg/L Normal <=1.0 [facility] Comment on above: Performed By: #### C RP, CMP, BNP ####[facility] Elwoxrghsj20[address] [place] [address]Dr. Shahbaz Rogel ECHO LIMITED STUDYon ECHO LIMITED STUDY Normal [facility] PROF 14(COMP METB)on Albumin [Mass/Vol] 3.2 g/dL Critically low 3.4-5.0 [facility] Comment on above: Performed By: #### C RP, CMP, BNP ####[facility] Pvzkgwnsjx7918 [place] [address]Dr. Shahbaz Rogel Albumin/Globulin [Mass ratio] 1.0 {ratio} Normal [facility] Comment on above: Performed By: #### C RP, CMP, BNP ####[facility] Kwztekqanj6354 [place] [address]Dr. Shahbaz Rogel ALP [Catalytic activity/Vol] 88 U/L Normal 46-116 [facility] Comment on above: Performed By: #### C RP, CMP, BNP ####[facility] Ggwqwtnxth6654 [place] [address]Dr. Shahbaz Rogel ALT [Catalytic activity/Vol] 17 U/L Normal 14-59 [facility] Comment on above: Performed By: #### C RP, CMP, BNP ####[facility] Egkcsdihtr9253 [place] [address]Dr. Shahbaz Rogel Anion gap [Moles/Vol] 12.5 mmol/L Normal [facility] Comment on above: Performed By: #### C RP, CMP, BNP ####[facility] Xzxjgyotcv8164 [place] [address]Dr. Shahbaz Rogel AST [Catalytic activity/Vol] 18 U/L Normal 15-37 [facility] Comment on above: Performed By: #### C RP, CMP, BNP ####[facility] Dgyutdcevb2349 [place] [address]Dr. Shahbaz Rogel Bilirubin [Mass/Vol] 0.3 mg/dL Normal 0.2-1.0 [facility] Comment on above: Performed By: #### C RP, CMP, BNP ####[facility] Muuxotvaaj6658 [place] [address]Dr. Shahbaz Rogel Calcium [Mass/Vol] 8.9 mg/dL Normal 8.5-10.1 [facility] Comment on above: Performed By: #### C RP, CMP, BNP ####[facility] [address]lwbqk[address] [place], [place] [address]Dr. Shahbaz Rogel Chloride [Moles/Vol] 103 mmol/L Normal 98-107 [facility] Comment on above: Performed By: #### C RP, CMP, BNP ####[facility] Ncs[address] [place], [place] [address]Dr. Shahbaz Rogel CO2 [Moles/Vol] 28.1 mmol/L Normal 21.0-32.0 [facility] Comment on above: Performed By: #### C RP, CMP, BNP ####[facility] Gkxsia[address] [place], [place] [address]Dr. Shahbaz Rogel Creatinine [Mass/Vol] 1.24 mg/dL Critically high 0.55-1.02 [facility] Comment on above: Performed By: #### C RP, CMP, BNP ####[facility] Ukb[address]zaq[address] [place], [place] [address]Dr. Shahbaz Rogel EGFR-AF BENINESE 54 mL/min/1.73m2 Critically low >=60 [facility] Comment on above: Performed By: #### C RP, CMP, BNP ####[facility] [address]vkiqsw[address] [place], [place] [address]Dr. Shahbaz Rogel EGFR-NON AF BENINESE 45 mL/min/1.73m2 Critically low >=60 [facility] Comment on above: Performed By: #### C RP, CMP, BNP ####[facility] [address]qe[address]pv[address] [place], [place] [address]Dr. Shahbaz Rogel Globulin (S) [Mass/Vol] 3.1 g/dL Normal [facility] Comment on above: Performed By: #### C RP, CMP, BNP ####[facility] Ihgcqwmhay[address] [place] [address]Dr. Shahbaz Rogel Glucose [Mass/Vol] 115 mg/dL Critically high 74-106 [facility] Comment on above: Performed By: #### C RP, CMP, BNP ####[facility] Jmlnbatzza56[address] [place] [address]Dr. Shahbaz Rogel Potassium [Moles/Vol] 3.6 mmol/L Normal 3.5-5.1 [facility] Comment on above: Performed By: #### C RP, CMP, BNP ####[facility] Fpypbemuii4375 [place] [address]Dr. Shahbaz Rogel Protein [Mass/Vol] 6.3 g/dL Critically low 6.4-8.2 [facility] Comment on above: Performed By: #### C RP, CMP, BNP ####[facility] Qamrrzfqjv17[address] [place] [address]Dr. Shahbaz Rogel Sodium [Moles/Vol] 140 mmol/L Normal 136-145 [facility] Comment on above: Performed By: #### C RP, CMP, BNP ####[facility] Fyrclvtabj8392 [place] [address]Dr. Shahbaz Rogel Urea nitrogen [Mass/Vol] 18.0 mg/dL Normal 7.0-18.0 [facility] Comment on above: Performed By: #### C RP, CMP, BNP ####[facility] Utvorzeeeu7808 [place] [address]Dr. Shahbaz Rogel Urea nitrogen/Creatinine [Mass ratio] 14.5 mg/mg Normal [facility] Comment on above: Performed By: #### C RP, CMP, BNP ####[facility] Tnjkxgxoqg68[address] [place] [address]Dr. Shahbaz Rogel T3, TOTAL (TRIIODOTHYRONINE) on 07-05-2022 T3, TOTAL 95 ng/dL Normal 71-180 [facility] Comment on above: Performed By: #### T 3TOTAL ####[facility] [address] [place], [place] [address]Dr. Shahbaz Rogel CARDIAC ROSALINA 3-6on 2 CK [Catalytic activity/Vol] 78 U/L Normal 26-192 [facility] Comment on above: Performed By: #### C MREP ####[facility] Xmjrqxdanq7771 [place] [id number]. Shahbaz Rogel CK.MB [Mass/Vol] 1.44 ng/mL Normal <=3.60 [facility] Comment on above: Performed By: #### C MREP ####[facility] Ywsjszkkpl[address] [place] [address]Dr. Shahbaz Rogel HSTROP 9.0 pg/mL Normal 4.0-51.3 [facility] Comment on above: Result Comment: CUT- OFF POINTS HAVE BEEN ESTABLISHED BASED ON THE FOURTH UNIVERSAL DEFINITIONS OF MYOCARDIALINFARCTION. THE UPPER REFERENCE LIMIT (URL) OF TROPONIN, DEFINED THE 99TH PERCENTILE OFcTnI DISTRIBUTION IN A REFERENCE POPULATION, HAS BEEN CONFIRMED THE DECISION THRESHOLDFOR FL DIAGNOSIS. Performed By: #### C MREP ####[facility] Tdqpepntvd4[address] [place] [address]Dr. Shahbaz Rogel CK [Catalytic activity/Vol] 88 U/L Normal 26-192 [facility] Comment on above: Performed By: #### C MREP ####[facility] Ycghguuzgf2718 [place] [address]Dr. Shahbaz Rogel CK.MB [Mass/Vol] 1.38 ng/mL Normal <=3.60 [facility] Comment on above: Performed By: #### C MREP ####[facility] Phscwfniuy77[address] [place] [address]Dr. Shahbaz Rogel HSTROP 7.0 pg/mL Normal 4.0-51.3 [facility] Comment on above: Result Comment: CUT- OFF POINTS HAVE BEEN ESTABLISHED BASED ON THE FOURTH UNIVERSAL DEFINITIONS OF MYOCARDIALINFARCTION. THE UPPER REFERENCE LIMIT (URL) OF TROPONIN, DEFINED THE 99TH PERCENTILE OFcTnI DISTRIBUTION IN A REFERENCE POPULATION, HAS BEEN CONFIRMED THE DECISION THRESHOLDFOR FL DIAGNOSIS. Performed By: #### C MREP ####[facility] Zonemjiehq39[address] [place] [address]Dr. Shahbaz Rogel CARDIAC ROSALINA ADMITon 022 CK [Catalytic activity/Vol] 87 U/L Normal 26-192 [facility] Comment on above: Performed By: #### C CINDY PAZ ####[facility] Dyecavzmdb0154 [place] [id number]. Shahbaz Rogel CK.MB [Mass/Vol] 1.80 ng/mL Normal <=3.60 [facility] Comment on above: Performed By: #### C CINDY PAZ ####[facility] Hmzhcpsjzh6133 [place] [address]Dr. Shahbaz Rogel HSTROP 7.6 pg/mL Normal 4.0-51.3 [facility] Comment on above: Result Comment: CUT- OFF POINTS HAVE BEEN ESTABLISHED BASED ON THE FOURTH UNIVERSAL DEFINITIONS OF MYOCARDIALINFARCTION. THE UPPER REFERENCE LIMIT (URL) OF TROPONIN, DEFINED THE 99TH PERCENTILE OFcTnI DISTRIBUTION IN A REFERENCE POPULATION, HAS BEEN CONFIRMED THE DECISION THRESHOLDFOR FL DIAGNOSIS. Performed By: #### C CINDY PAZ ####[facility] Liehqiomcd4994 [place] [address]Dr. Shahbaz Rogel LEN 67 ng/mL Normal 9-82 [facility] Comment on above: Performed By: #### C CINDY PAZ ####[facility] Fgrzavipfh29[address] [place] [address]Dr. Shahbaz Rogel CBC AUTO DIFFon 07-04-2022 BASO # 0.0 103/ul Normal 0.0-0.1 [facility] Comment on above: Performed By: #### C BC ####[facility] Davnkqxepi45[address] [place] [id number]. Shahbaz Juan F Basophils/100 WBC (Bld) 0.7 % Normal 0.2-2.0 [facility] Comment on above: Performed By: #### C BC ####[facility] Wrnztfcndh4379 [place] [address]Dr. Lilajarrod Rogel EO # 0.1 103/ul Normal 0.0-0.7 [facility] Comment on above: Performed By: #### C BC ####[facility] Gmhhsybtgh9089 [place] [id number]. Shahbaz Rogel Eosinophils/100 WBC (Bld) 3.4 % Normal 0.9-7.0 [facility] Comment on above: Performed By: #### C BC ####[facility] Zswtrxddcp4059 [place] [phone]. Shahbaz Rogel Erythrocyte distribution width (RBC) [Ratio] 13.3 % Normal 11.0-15.0 [facility] Comment on above: Performed By: #### C BC ####[facility] [address]oxrs[address] [place], [place] [address]Dr. Shahbaz Rogel Hematocrit (Bld) [Volume fraction] 42.1 % Normal 36.0-48.0 [facility] Comment on above: Performed By: #### C BC ####[facility] Ulauypqvmr[address] [place], [place] [address]Dr. Shahbaz Rogel Hemoglobin (Bld) [Mass/Vol] 13.3 g/dL Normal 12.0-16.0 [facility] Comment on above: Performed By: #### C BC ####[facility] X[address]ysiy[address] [place], [place] [address]Dr. Shahbaz Rogel IG # 0.01 10e3/ul Normal 0.00-0.03 [facility] Comment on above: Performed By: #### C BC ####[facility] Vpldeyjrdz9952 [place] [address]Dr. Shahbaz Rogel IG % 0.3 % Normal 0.0-0.5 [facility] Comment on above: Performed By: #### C BC ####[facility] Loukxpupig[address] [place], [place] [address]Dr. Shahbaz Rogel LYMPH # 1.0 103/ul Critically low 1.2-3.8 [facility] Comment on above: Performed By: #### C BC ####[facility] Wlcsscptq[address] [place], [place] [address]Dr. Shahbaz Rogel Lymphocytes/100 WBC (Bld) 35.6 % Normal 20.5-60.0 [facility] Comment on above: Performed By: #### C BC ####[facility] Dalsjxikmy2940 [place] [id number]. Shahbaz Rogel MANUAL DIFF REQ NO Normal [facility] Comment on above: Performed By: #### C BC ####[facility] Tiurujfzzz4752 [place] [address]Dr. Shahbaz Rogel MCH (RBC) [Entitic mass] 27.9 pg Normal 26.7-34.0 [facility] Comment on above: Performed By: #### C BC ####[facility] Z[address]fnpglsj[address] [place], [place] [address]Dr. Shahbaz Rogel MCHC (RBC) [Mass/Vol] 31.6 g/dL Normal 29.9-35.2 [facility] Comment on above: Performed By: #### C BC ####[facility] Lzzmaxwpve[address] [place], [place] [address]Dr. Shahbaz Rogel MCV (RBC) [Entitic vol] 88.3 fL Normal 81.0-99.0 [facility] Comment on above: Performed By: #### C BC ####[facility] Hvgsbogqnc[address] [place], [place] [address]Dr. Shahbaz Juan F MONO # 0.2 103/ul Critically low 0.3-0.8 [facility] Comment on above: Performed By: #### C BC ####[facility] Obcingonmm[address] [place], [place] [address]Dr. Lilajarrod Rogel Monocytes/100 WBC (Bld) 7.9 % Normal 1.7-12.0 [facility] Comment on above: Performed By: #### C BC ####[facility] Gdfvhkucgf[address] [place], [place] [address]Dr. Shahbaz Rogel NEUT # 1.5 103/ul Normal 1.4-6.5 [facility] Comment on above: Performed By: #### C BC ####[facility] Pbxuflphft[address] [place], [place] [address]Dr. Lilajarrod Rogel Neutrophils/100 WBC (Bld) 52.1 % Normal 43.0-75.0 [facility] Comment on above: Performed By: #### C BC ####[facility] Wxxzpdvdga4661 [place] [id number]. Shahbaz Rogel Platelet mean volume (Bld) [Entitic vol] 9.5 fL Normal 9.5-13.5 [facility] Comment on above: Performed By: #### C BC ####[facility] Geurzjctaw7208 [place] [id number]. Shahbaz Rogel PLT 172 103/ul Normal 150-450 [facility] Comment on above: Performed By: #### C BC ####[facility] [address]fyhtxnns[address] [place], [place] [address]Dr. Shahbaz Rogel RBC 4.77 106/ul Normal 4.20-5.40 [facility] Comment on above: Performed By: #### C BC ####[facility] Nyrdqqjyag[address] [place], [place] [address]Dr. Shahbaz Rogel WBC 2.9 103/ul Critically low 4.0-11.0 [facility] Comment on above: Performed By: #### C BC ####[facility] [address]rohzhuwsr[address] [place], [place] [address]Dr. Shahbaz Rogel CELL COUNT BODY FLUIDon 10-0 BASOS Normal [facility] Comment on above: Performed By: #### B FCC ####[facility] [address]nl[address]aax[address] [place], [place] [address]Dr. Shahbaz Rogel Eosinophils/100 WBC (Bld) 4 % Normal [facility] Comment on above: Performed By: #### B FCC ####[facility] Drypdvsvur[address] [place], [place] [address]Dr. Shahbaz Rogel Lymphocytes/100 WBC (Bld) 12 % Normal [facility] Comment on above: Performed By: #### B FCC ####[facility] G[address]aelehgd[address] [place], [place] [address]Dr. Shahbaz Rogel Monocytes/100 WBC (Bld) 4 % Normal [facility] Comment on above: Performed By: #### B FCC ####[facility] [address]sopvze[address] [place], [place] [address]Dr. Shahbaz Rogel RBC 67 cubic mm Normal [facility] Comment on above: Performed By: #### B FCC ####[facility] Lmgripijbz2413 [place], [place] [address]Fd. Shahbaz Rogel SEGS 80 % Normal [facility] Comment on above: Performed By: #### B FCC ####[facility] Agwwuvnogs8822 [place], [place] [address]Lg. Shahbaz Rogel WBC BODY FLUID 223 cubic mm Normal [facility] Comment on above: Performed By: #### B FCC ####[facility] Gkpanrmzmg5716 [place] [phone]. Shahbaz Rogel CULTURE OTHERon 07-04-2022 CULTURE OTHER Culture Observations : NO GROWTH AT 48 HOURS. Normal [facility] Comment on above: Performed By: #### O THCX ####[facility] Glivotlpwg0960 [place] [phone]. Shahbaz Rogel CYTOLOGYon 07-04-2022 SENT TO REF LAB 07/04/22 Normal [facility] Comment on above: Performed By: #### C YTO ####[facility] Kpymcllvys3228 [place] [phone]. Shahbaz Rogel Covid-19 PCR (CVDTB)on SARS-CoV-2 (COVID-19) RNA PAVAN+probe Ql (Unsp spec) Not detected Normal NOT DETECTED [facility] Comment on above: Result [...] for this test is supported by the [place] of [employer] and Human Service's declaration that [...] be used). Performed By: #### C VDTBH ####[facility] Ykmphvuhqp9369 [place] [address]Dr. Shahbaz Rogel GRAM STAINon 07-04-2022 COMMENTS NO ORGANISMS OBSERVED Normal [facility] Comment on above: Performed By: #### G STAIN ####[facility] [address]ckkszojs[address] [place], [place] [address]Dr. Shahbaz Rogel DIPHTHEROIDS Normal [facility] Comment on above: Performed By: #### G STAIN ####[facility] Ubacidiwvr[address] [place], [place] [address]Dr. Shahbaz Rogel EPITHELIALS Normal [facility] Comment on above: Performed By: #### G STAIN ####[facility] Ttsltjpquj[address] [place], [place] [address]Dr. Shahbaz Rogel FUNGAL ELEMENTS Normal [facility] Comment on above: Performed By: #### G STAIN ####[facility] Jxughxx[address]vl[address] [place], [place] [address]Dr. Shahbaz Rogel GRAM NEG BACILLI Normal [facility] Comment on above: Performed By: #### G STAIN ####[facility] Xqulvgyhxe[address] [place], [place] [address]Dr. Shahbaz Rogel GRAM NEG DIPPLOCOCCI Normal [facility] Comment on above: Performed By: #### G STAIN ####[facility] [address]nyldvybf[address] [place], [place] [address]Dr. Shahbaz Rogel GRAM POS BACILLI Normal [facility] Comment on above: Performed By: #### G STAIN ####[facility] Tguxdjbghz[address] [place], [place] [address]Dr. Shahbaz Rogel GRAM POSITIVE COCCI Normal [facility] Comment on above: Performed By: #### G STAIN ####[facility] Vxlnguctdm[address] [place], [place] [address]Dr. Shahbaz Rogel GRAM STAIN SOURCE Rt Lower Lobe Bronch ial Washing Normal [facility] Comment on above: Performed By: #### G STAIN ####[facility] [address]elmdzwomo[address] [place], [place] [address]Dr. Shahbaz Rogel GS_DIPTH Normal [facility] Comment on above: Performed By: #### G STAIN ####[facility] Wabtokhsjs3583 [place] [id number]. Shahbaz Rogel WBC RARE Normal [facility] Comment on above: Performed By: #### G STAIN ####[facility] Cyaseykikj1262 [place] [phone]. Shahbaz Rogel PROF 14(COMP METB)on 022 Albumin [Mass/Vol] 3.6 g/dL Normal 3.4-5.0 [facility] Comment on above: Performed By: #### C JACKSON, CMADM ####[facility] Dyiegfcjxa2777 [place] [phone]. Shahbaz Rogel Albumin/Globulin [Mass ratio] 1.1 {ratio} Normal [facility] Comment on above: Performed By: #### C JACKSON, CMADM ####[facility] Ndlngxmqfu8559 [place] [address]Dr. Shahbaz Rogel ALP [Catalytic activity/Vol] 102 U/L Normal 46-116 [facility] Comment on above: Performed By: #### C JACKSON, CMADM ####[facility] Fwysjkyysy1012 [place] [address]Dr. Shahbaz Rogel ALT [Catalytic activity/Vol] 19 U/L Normal 14-59 [facility] Comment on above: Performed By: #### C JACKSON, CMADM ####[facility] Ueqbkgzmnn5887 [place] [phone]. Shahbaz Rogel Anion gap [Moles/Vol] 9.5 mmol/L Normal [facility] Comment on above: Performed By: #### C JACKSON, CMADM ####[facility] Iyitfzwbim8333 [place] [phone]. Shahbaz Rogel AST [Catalytic activity/Vol] 19 U/L Normal 15-37 [facility] Comment on above: Performed By: #### C JACKSON, CMADM ####[facility] Fyzydebamg7665 [place] [phone]. Shahbaz Rogel Bilirubin [Mass/Vol] 0.3 mg/dL Normal 0.2-1.0 [facility] Comment on above: Performed By: #### C JACKSON, CMADM ####[facility] Utvteuzckp7787 [place] [address]Dr. Shahbaz Rogel Calcium [Mass/Vol] 8.8 mg/dL Normal 8.5-10.1 [facility] Comment on above: Performed By: #### C JACKSON, CMADM ####[facility] [address] [place], [place] [address]Dr. Lilajarrod Rogel Chloride [Moles/Vol] 107 mmol/L Normal 98-107 [facility] Comment on above: Performed By: #### C JACKSON, CMADM ####[facility] [facility] [address] [place], [place] [address]Dr. Lilajarrod Rogel CO2 [Moles/Vol] 29.5 mmol/L Normal 21.0-32.0 [facility] Comment on above: Performed By: #### C JACKSON, CMAROXANNA ####[facility] Xcqerothar[address] [place], [place] [address]Dr. Lilajarrod Rogel Creatinine [Mass/Vol] 0.97 mg/dL Normal 0.55-1.02 [facility] Comment on above: Performed By: #### C JACKSON, CINDY ####[facility] Gvpsp[address] [place], [place] [address]Dr. Shahbaz Rogel EGFR-AF BENINESE >60 Normal >=60 [facility] Comment on above: Performed By: #### C JACKSON, CMAROXANNA ####[facility] Wtrrh[address]oms[address] [place], [place] [address]Dr. Shahbaz Rogel EGFR-NON AF BENINESE 59 mL/min/1.73m2 Critically low >=60 [facility] Comment on above: Performed By: #### C JACKSON, CMADM ####[facility] Alxezdxnpu[address] [place], [place] [address]Dr. Shahbaz Rogel Globulin (S) [Mass/Vol] 3.2 g/dL Normal [facility] Comment on above: Performed By: #### C JACKSON, CMAROXANNA ####[facility] Fijhuqd[address] [place], [place] [address]Dr. Shahbaz Rogel Glucose [Mass/Vol] 89 mg/dL Normal 74-106 [facility] Comment on above: Performed By: #### C JACKSON, CMADM ####[facility] [address] [place] [address]Dr. Shahbaz Rogel Potassium [Moles/Vol] 4.0 mmol/L Normal 3.5-5.1 [facility] Comment on above: Performed By: #### C JACKSON, CMADM ####[facility] Xalceabyou[address] [place] [address]Dr. Shahbaz Rogel Protein [Mass/Vol] 6.8 g/dL Normal 6.4-8.2 [facility] Comment on above: Performed By: #### C JACKSON, CMADM ####[facility] Rrnylacshc[address] [place], [place] [address]Dr. Shahbaz Rogel Sodium [Moles/Vol] 142 mmol/L Normal 136-145 [facility] Comment on above: Performed By: #### C JACKSON, CMADM ####[facility] Zdtueukpgt[address] [place], [place] [address]Dr. Shahbaz Rogel Urea nitrogen [Mass/Vol] 11.0 mg/dL Normal 7.0-18.0 [facility] Comment on above: Performed By: #### C JACKSON, CMADM ####[facility] Rvndkwgclo4[address] [place], [place] [address]Dr. Shahbaz Rogel Urea nitrogen/Creatinine [Mass ratio] 11.3 mg/mg Normal [facility] Comment on above: Performed By: #### C JACKSON, CMADM ####[facility] [address]bp[address] [place] [address]Dr. Shahbaz Rogel T4on 07-04-2022 T4 [Mass/Vol] 4.70 ug/dL Critically low 4.80-13.90 [facility] Comment on above: Performed By: #### T SH, T4 ####[facility] Nnafwiyg[address] [place], [place] [address]Dr. Shahbaz Rogel TSHon 07-04-2022 TSH 0.359 uIU/mL Normal 0.358-3.74 0 [facility] Comment on above: Performed By: #### T SH, T4 ####[facility] [address] [place], [place] [address]Bz. Shahbaz Rogel XR CHEST 1 Von 07-04-2022 XR CHEST 1 V Normal [facility] XR CHEST 1 V Normal [facility] CHLAMYDIA PNEUMONIAE IgG IgM IgAon 06-27-2022 Chlamydia pneumoniae IgA <1:16 Normal Neg:<1:16 [facility] Comment on above: Performed By: #### C HLMPNE ####[facility] [address] [place] [id number]. Shahbaz Rogel Chlamydia pneumoniae IgG <1:16 Normal Neg:<1:16 [facility] Comment on above: Performed By: #### C HLMPNE ####[facility] Tpshj[address]wcu[address] [place] [id number]. Shahbaz Rogel Chlamydia pneumoniae IgM <1:10 Normal Neg:<1:10 [facility] Comment on above: Performed By: #### C HLMPNE ####[facility] [address]kv[address] [place] [id number]. Shahbaz Rogel Test Information: Comment Normal [facility] Comment on above: Result Comment: This test was developed and its performance characteristics determinedby [employer]. It has not been cleared or approved by the Food and DrugAdministration. The FDA has determined that such clearance or approvalis not necessary. Results of this test are for investigationalpurposes only. The result should not be used as a diagnosticprocedure without confirmation of the diagnosis by another medicallyestablished diagnostic product or procedure. Performed By: #### C HLMPNE ####[facility] [address] [place] [id number]. Shahbaz Rogel Covid-19 PCR (CVDTBH)on 06-03 SARS-CoV-2 (COVID-19) RNA PAVAN+probe Ql (Unsp spec) Not detected Normal NOT DETECTED [facility] Comment on above: Result Comment: This test is not yet approved or cleared by the [place] FDA. When there are no FDA-approved or cleared tests available, and other criteria are met, FDA can make tests available under an emergency access mechanism called an Emergency Use Authorization (EUA). The EUA for this test is supported by the [place] of Health and Human Service's (HHS's) declaration [...] with SARS-CoV-2. Performed By: #### C VDTBH ####[facility] J[address] [place], [place] [address]Dr. Shahbaz Rogel CYCLIC CITRULLINATED PEPTIDE AB (CCP)on 06-25-2022 CCP Antibodies IgG/IgA 13 units Normal 0-19 Th [facility] Comment on above: Result Comment: Nega tive <20 Weak positive 20 - 39 Moderate positive 40 - 59 Strong positive >59 Performed By: #### C CPAB ####[facility] Vwuz[address]ci[address] [place], [place] [address]Dr. Shahbaz Rogel ANTI NEUTROPHIL CYTOPLASMIC AB (ANCA) PRon 06-24-2022 Anti-MPO Antibodies <0.2 Normal 0.0-0.9 [facility] Comment on above: Result Comment: Perf ormed at: BN Performed By: #### A NCAP ####[facility] [address] [place], [place] [address]Dr. Shahbaz Rogel Anti-PR3 Antibodies 5.0 units Critically high 0.0-0.9 [facility] Comment on above: Result Comment: Perf ormed at: BN Performed By: #### A NCAP ####[facility] G[address] [place], [place] [address]Dr. Shahbaz Rogel Atypical pANCA <1:20 Normal Neg:<1:20 [facility] Comment on above: Result Comment: The atypical pANCA pattern has been observed in a significantpercentage of patients with ulcerative colitis, primary sclerosingcholangitis and autoimmune hepatitis.Performed at: Performed By: #### A NCAP ####[facility] [address] [place] [address]Dr. Shahbaz Rogel Cytoplasmic (C-ANCA) <1:20 Normal Neg:<1:20 [facility] Comment on above: Result Comment: Perf ormed at: CB Performed By: #### A NCAP ####[facility] Qnatpolsew[address] [place] [address]Dr. Shahbaz Rogel Perinuclear (P-ANCA) 1:80 Critically high Neg:<1:20 [facility] Comment on above: Result Comment: The presence of positive fluorescence exhibiting P-ANCA or C-ANCApatterns alone is not specific for the diagnosis of Ada'sGranulomatosis (WG) or microscopic polyangiitis. Decisions abouttreatment should not be based solely on ANCA IFA results. TheInternational ANCA Group Consensus recommends follow up testing ofpositive sera with both KS-3 and MPO-ANCA enzyme immunoassays. Asmany as 5% serum samples are positive only by EIA.Ref. AM J Clin Pathol 1999;111:507-513.Performed at: CB Performed By: #### A NCAP ####[facility] [address]coqifmaxh[address] [place], [place] [address]Dr. Shahbaz Rogel ANTIGLOMERULAR BASEMENT MEMB ANTOINE ABSon 06-24-2022 Anti-GBM Antibodies <0.2 Normal 0.0-0.9 [facility] Comment on above: Performed By: #### A GBM ####[facility] [address] [place], [place] [address]Dr. Shahbaz Rogel SHAHANA EIA W/REFLEX 5 BIOMARKER Son 06-23-2022 SHAHANA Direct Negative Normal Negative [facility] Comment on above: Performed By: #### A NARF ####[facility] [address] [place], [place] [address]Dr. Shahbaz Rogel ANTISCLERODERMA ABon 022 Antiscleroderma-70 Antibodies <0.2 Normal 0.0-0.9 [facility] Comment on above: Performed By: #### A NSCLER ####[facility] [address]ufyryvyc[address] [place], [place] [address]Dr. Shahbaz Rogel RHEUMATOID FACTORon 06-23-20 RA Latex Turbid. <10.0 Normal <14.0 [facility] Comment on above: Performed By: #### R F ####[facility] Sic[address]hbira[address] [place] [address]Dr. Shahbaz Rogel CBC AUTO DIFFon 06-22-2022 BASO # 0.0 103/ul Normal 0.0-0.1 [facility] Comment on above: Performed By: #### C BC ####[facility] Tw[address]nerfmft[address] [place] [address]Dr. Shahbaz Rogel Basophils/100 WBC (Bld) 0.5 % Normal 0.2-2.0 [facility] Comment on above: Performed By: #### C BC ####[facility] Ggorwcxfzb[address] [place], [place] [address]Dr. Shahbaz Rogel EO # 0.1 103/ul Normal 0.0-0.7 [facility] Comment on above: Performed By: #### C BC ####[facility] C[address]af[address] [place], [place] [address]Dr. Shahbaz Rogel Eosinophils/100 WBC (Bld) 3.4 % Normal 0.9-7.0 [facility] Comment on above: Performed By: #### C BC ####[facility] Maxyiweacn[address] [place], [place] [address]Dr. Shahbaz Rogel Erythrocyte distribution width (RBC) [Ratio] 13.2 % Normal 11.0-15.0 [facility] Comment on above: Performed By: #### C BC ####[facility] Zeyslxklbr[address] [place], [place] [address]Dr. Shahbaz Rogel Hematocrit (Bld) [Volume fraction] 45.6 % Normal 36.0-48.0 [facility] Comment on above: Performed By: #### C BC ####[facility] [address]ucqa[address] [place], [place] [address]Dr. Shahbaz Rogel Hemoglobin (Bld) [Mass/Vol] 14.7 g/dL Normal 12.0-16.0 [facility] Comment on above: Performed By: #### C BC ####[facility] [address] [place] [id number]. Shahbaz Rogel IG # 0.01 10e3/ul Normal 0.00-0.03 [facility] Comment on above: Performed By: #### C BC ####[facility] Tzveskznzn[address] [place] [id number]. Shahbaz Rogel IG % 0.3 % Normal 0.0-0.5 [facility] Comment on above: Performed By: #### C BC ####[facility] [address]ektrovdf[address] [place] [address]Dr. Shahbaz Rogel LYMPH # 1.0 103/ul Critically low 1.2-3.8 [facility] Comment on above: Performed By: #### C BC ####[facility] Vcolgnjtcb[address] [place] [address]Dr. Shahbaz Rogel Lymphocytes/100 WBC (Bld) 25.7 % Normal 20.5-60.0 [facility] Comment on above: Performed By: #### C BC ####[facility] Vdcaikjoer[address] [place] [address]Dr. Shahbaz Rogel MANUAL DIFF REQ NO Normal [facility] Comment on above: Performed By: #### C BC ####[facility] Ygumlvpgid6636 [place] [address]Dr. Shahbaz Rogel MCH (RBC) [Entitic mass] 28.1 pg Normal 26.7-34.0 [facility] Comment on above: Performed By: #### C BC ####[facility] Zqlicbdpei[address] [place], [place] [address]Dr. Shahbaz Rogel MCHC (RBC) [Mass/Vol] 32.2 g/dL Normal 29.9-35.2 [facility] Comment on above: Performed By: #### C BC ####[facility] [address]wiraep[address] [place] [address]Dr. Shahbaz Rogel MCV (RBC) [Entitic vol] 87.2 fL Normal 81.0-99.0 [facility] Comment on above: Performed By: #### C BC ####[facility] [address]ksqcupbb48[address] [place] [id number]. Shahbaz Rogel MONO # 0.2 103/ul Critically low 0.3-0.8 [facility] Comment on above: Performed By: #### C BC ####[facility] Xygv[address]izwu[address] [place] [id number]. Shahbaz Rogel Monocytes/100 WBC (Bld) 6.0 % Normal 1.7-12.0 [facility] Comment on above: Performed By: #### C BC ####[facility] Emkazvmcfo24[address] [place] [id number]. Shahbaz Rogel NEUT # 2.5 103/ul Normal 1.4-6.5 [facility] Comment on above: Performed By: #### C BC ####[facility] Hgveesmvfn6728 [place] [address]Dr. Shahbaz Rogel Neutrophils/100 WBC (Bld) 64.1 % Normal 43.0-75.0 [facility] Comment on above: Performed By: #### C BC ####[facility] Aseeggqyql37[address] [place] [id number]. Shahbaz Rogel Platelet mean volume (Bld) [Entitic vol] 9.4 fL Critically low 9.5-13.5 [facility] Comment on above: Performed By: #### C BC ####[facility] Pehwmxwycy[address] [place] [id number]. Shahbaz Rogel PLT 212 103/ul Normal 150-450 [facility] Comment on above: Performed By: #### C BC ####[facility] Slwgyqvqlp43[address] [place] [id number]. Shahbaz Rogel RBC 5.23 106/ul Normal 4.20-5.40 [facility] Comment on above: Performed By: #### C BC ####[facility] Uoqyedojdu[address] [place] [address]Dr. Shahbaz Rogel WBC 3.9 103/ul Critically low 4.0-11.0 [facility] Comment on above: Performed By: #### C BC ####[facility] Soazomvbem[address] [place], [place] [address]Dr. Shahbaz Rogel PROF 14(COMP METB)on 022 Albumin [Mass/Vol] 4.1 g/dL Normal 3.4-5.0 [facility] Comment on above: Performed By: #### C MP ####[facility] Zvgaedclus[address] [place], [place] [address]Dr. Shahbaz Rogel Albumin/Globulin [Mass ratio] 1.1 {ratio} Normal [facility] Comment on above: Performed By: #### C MP ####[facility] Lcsgkjdexf[address] [place], [place] [address]Dr. Shahbaz Rogel ALP [Catalytic activity/Vol] 133 U/L Critically high 46-116 [facility] Comment on above: Performed By: #### C MP ####[facility] Caegvbiwnu[address] [place], [place] [address]Dr. Shahbaz Rogel ALT [Catalytic activity/Vol] 29 U/L Normal 14-59 [facility] Comment on above: Performed By: #### C MP ####[facility] Hlcsnnvhdk[address] [place], [place] [address]Dr. Shahbaz Rogel Anion gap [Moles/Vol] 10.9 mmol/L Normal [facility] Comment on above: Performed By: #### C MP ####[facility] X[address]odhrfhzl[address] [place], [place] [address]Dr. Shahbaz Rogel AST [Catalytic activity/Vol] 23 U/L Normal 15-37 [facility] Comment on above: Performed By: #### C MP ####[facility] Gtyqgyiyms[address] [place], [place] [address]Dr. Shahbaz Rogel Bilirubin [Mass/Vol] 0.3 mg/dL Normal 0.2-1.0 [facility] Comment on above: Performed By: #### C MP ####[facility] Ngtmrzwctz[address] [place], [place] [address]Dr. Shahbaz Rogel Calcium [Mass/Vol] 9.1 mg/dL Normal 8.5-10.1 [facility] Comment on above: Performed By: #### C MP ####[facility] Bzlhwtaope027[address] [place] [id number]. Lilajarrod Rogel Chloride [Moles/Vol] 103 mmol/L Normal 98-107 [facility] Comment on above: Performed By: #### C MP ####[facility] Ubxauxkcsq14[address] [place] [address]Dr. Shahbaz Juan F CO2 [Moles/Vol] 30.8 mmol/L Normal 21.0-32.0 [facility] Comment on above: Performed By: #### C MP ####[facility] Rooidohfie[address] [place] [address]Dr. Lilajarrod Rogel Creatinine [Mass/Vol] 1.02 mg/dL Normal 0.55-1.02 [facility] Comment on above: Performed By: #### C MP ####[facility] Oxorlckdwi[address] [place], [place] [address]Dr. Shahbaz Rogel EGFR-AF BENINESE >60 Normal >=60 [facility] Comment on above: Performed By: #### C MP ####[facility] Ofzuawvsgo[address] [place], [place] [address]Dr. Shahbaz Rogel EGFR-NON AF BENINESE 56 mL/min/1.73m2 Critically low >=60 [facility] Comment on above: Performed By: #### C MP ####[facility] Jxfvdhtaaj13[address] [place] [address]Dr. Shahbaz Rogel Globulin (S) [Mass/Vol] 3.7 g/dL Normal [facility] Comment on above: Performed By: #### C MP ####[facility] Xhgoxudjbb6370 [place] [address]Dr. Shahbaz Rogel Glucose [Mass/Vol] 80 mg/dL Normal 74-106 [facility] Comment on above: Performed By: #### C MP ####[facility] Bxyhyafjgz[address] [place], [place] [address]Dr. Shahbaz Rogel Potassium [Moles/Vol] 3.7 mmol/L Normal 3.5-5.1 [facility] Comment on above: Performed By: #### C MP ####[facility] [address]rnitazn[address] [place], [place] [address]Dr. Shahbaz Rogel Protein [Mass/Vol] 7.8 g/dL Normal 6.4-8.2 [facility] Comment on above: Performed By: #### C MP ####[facility] Mutobwijnr[address] [place] [address]Dr. Shahbaz Rogel Sodium [Moles/Vol] 141 mmol/L Normal 136-145 [facility] Comment on above: Performed By: #### C MP ####[facility] Bhqzbegusp[address]60 [place] [address]Dr. Shahbaz Rogel Urea nitrogen [Mass/Vol] 10.0 mg/dL Normal 7.0-18.0 [facility] Comment on above: Performed By: #### C MP ####[facility] Fxuftsbtcx1908 [place] [address]Dr. Shahbaz Rogel Urea nitrogen/Creatinine [Mass ratio] 9.8 mg/mg Normal [facility] Comment on above: Performed By: #### C MP ####[facility] Oqomujcgmz36[address] [place] [address]Dr. Shahbaz Rogel SED RATE [facility] 2021 SED RATE 17 mm/hr Normal <=30 [facility] Comment on above: Performed By: #### S EDR ####[facility] Ajunntraqt[address] [place] [address]Dr. Shahbaz Rogel CT CHEST HI RESOLUTIONon CT CHEST HI RESOLUTION Normal [facility] XR ANKLE RT MIN 3 VIEWSon XR ANKLE RT MIN 3 VIEWS Normal [facility] CT CHEST WO CONon 03-03-2022 CT CHEST WO CON Normal [facility] CT CSPINE WO CONon CT CSPINE WO CON Normal [facility] XR CHEST 2 Von 03-03-2022 XR CHEST 2 V Normal [facility] XR STERNUM MIN 2 VIEWSon XR STERNUM MIN 2 VIEWS Normal [facility] CT HEAD WO CONon 03-02-2022 CT HEAD WO CON Normal [facility] CBC AUTO DIFFon 01-21-2022 BASO # 0.0 103/ul Normal 0.0-0.1 [facility] Comment on above: Performed By: #### C BC ####[facility] Pszaozvtcw[address] [place], [place] [address]Dr. Lilajarrod Rogel Basophils/100 WBC (Bld) 0.0 % Critically low 0.2-2.0 [facility] Comment on above: Performed By: #### C BC ####[facility] Ouwtzdibeg[address] [place], [place] [address]Dr. Shahbaz Rogel EO # 0.0 103/ul Normal 0.0-0.7 [facility] Comment on above: Performed By: #### C BC ####[facility] [address]vudisukjt[address] [place], [place] [address]Dr. Shahbaz Rogel Eosinophils/100 WBC (Bld) 0.0 % Critically low 0.9-7.0 [facility] Comment on above: Performed By: #### C BC ####[facility] Jlkcvaakab[address] [place], [place] [address]Dr. Shahbaz Rogel Erythrocyte distribution width (RBC) [Ratio] 14.2 % Normal 11.0-15.0 [facility] Comment on above: Performed By: #### C BC ####[facility] Asbktdymxq[address] [place], [place] [address]Dr. Lilajarrod Rogel Hematocrit (Bld) [Volume fraction] 38.9 % Normal 36.0-48.0 [facility] Comment on above: Performed By: #### C BC ####[facility] [address]cqmxtore[address] [place], [place] [address]Dr. Lilajarrod Rogel Hemoglobin (Bld) [Mass/Vol] 11.8 g/dL Critically low 12.0-16.0 [facility] Comment on above: Performed By: #### C BC ####[facility] Uzzjridfme[address] [place], [place] [address]Dr. Shahbaz Rogel IG # 0.03 10e3/ul Normal 0.00-0.03 [facility] Comment on above: Performed By: #### C BC ####[facility] Yikrwtdbbl[address] [place], [place] [address]Dr. Shahbaz Rogel IG % 0.4 % Normal 0.0-0.5 [facility] Comment on above: Performed By: #### C BC ####[facility] Eojbflzyrb[address] [place] [address]Dr. Shahbaz Rogel LYMPH # 0.8 103/ul Critically low 1.2-3.8 [facility] Comment on above: Performed By: #### C BC ####[facility] Sltskrgzfs075[address] [place] [address]Dr. Shahbaz Juan F Lymphocytes/100 WBC (Bld) 10.3 % Critically low 20.5-60.0 [facility] Comment on above: Performed By: #### C BC ####[facility] [address]zphphqua[address] [place], [place] [address]Dr. Lilajarrod Rogel MANUAL DIFF REQ NO Normal [facility] Comment on above: Performed By: #### C BC ####[facility] Ooeoftbdpl[address] [place], [place] [address]Dr. Shahbaz Juan F MCH (RBC) [Entitic mass] 27.1 pg Normal 26.7-34.0 [facility] Comment on above: Performed By: #### C BC ####[facility] Oh[address]obmrlm[address] [place], [place] [address]Dr. Shahbaz Rogel MCHC (RBC) [Mass/Vol] 30.3 g/dL Normal 29.9-35.2 [facility] Comment on above: Performed By: #### C BC ####[facility] Ewefvsgdxi[address] [place], [place] [address]Dr. Shahbaz Juan F MCV (RBC) [Entitic vol] 89.2 fL Normal 81.0-99.0 [facility] Comment on above: Performed By: #### C BC ####[facility] Sendzzvzkg[address] [place], [place] [address]DrChen Lilajarrod Rogel MONO # 0.4 103/ul Normal 0.3-0.8 [facility] Comment on above: Performed By: #### C BC ####[facility] Hxhimjyidb[address] [place], [place] [address]Dr. Shahbaz Rogel Monocytes/100 WBC (Bld) 4.7 % Normal 1.7-12.0 [facility] Comment on above: Performed By: #### C BC ####[facility] [address] [place] [address]Dr. Shahbaz Rogel NEUT # 6.6 103/ul Critically high 1.4-6.5 [facility] Comment on above: Performed By: #### C BC ####[facility] Zadlhgcemf[address] [place] [address]Dr. Shahbaz Rogel Neutrophils/100 WBC (Bld) 84.6 % Critically high 43.0-75.0 [facility] Comment on above: Performed By: #### C BC ####[facility] Jkgbephubz[address] [place], [place] [address]Dr. Shahbaz Rogel Platelet mean volume (Bld) [Entitic vol] 10.0 fL Normal 9.5-13.5 [facility] Comment on above: Performed By: #### C BC ####[facility] Zbzimwojec[address] [place], [place] [address]Dr. Shahbaz Rogel PLT 165 103/ul Normal 150-450 [facility] Comment on above: Performed By: #### C BC ####[facility] Pgpamgskbc9035[address] [place], [place] [address]Dr. Shahbaz Rogel RBC 4.36 106/ul Normal 4.20-5.40 [facility] Comment on above: Performed By: #### C BC ####[facility] Lbbruxwfwx70[address] [place], [place] [address]Dr. Shahbaz Rogel WBC 7.8 103/ul Normal 4.0-11.0 [facility] Comment on above: Performed By: #### C BC ####[facility] Agvemzgnjc[address] [place], [place] [address]Dr. Shahbaz Rogel ER URINE PROFILEon 2 Bilirubin Ql (U) Negative Normal NEGATIVE [facility] Comment on above: Performed By: #### E RUR ####[facility] Qvbfycoatx71[address] [place], [place] [address]Dr. Lilajarrod Juan F Clarity (U) CLEAR Normal CLEAR [facility] Comment on above: Performed By: #### E RUR ####[facility] Qqygyukpmj[address] [place], [place] [address]Dr. Lilajarrod Juan F Color (U) LT. YELLOW Normal YELLOW [facility] Comment on above: Performed By: #### E RUR ####[facility] Tdhvfrfqpp[address] [place], [place] [address]Dr. Shahbaz Rogel ERUAHD A micrscopic examina tion will be performed if indicated. Normal [facility] Comment on above: Performed By: #### E RUR ####[facility] Zujjcstbps[address] [place], [place] [address]Dr. Shahbaz Rogel Glucose Ql (U) Negative Normal NEGATIVE [facility] Comment on above: Performed By: #### E RUR ####[facility] Otgczczpqq437[address] [place], [place] [address]Dr. Shahbaz Rogel Hemoglobin Ql (U) Negative Normal NEGATIVE [facility] Comment on above: Performed By: #### E RUR ####[facility] Jyauoxozrk8940[address] [place], [place] [address]Dr. Shahbaz Rogel Ketones Ql (U) Negative Normal NEGATIVE [facility] Comment on above: Performed By: #### E RUR ####[facility] Yaucimkqyf175[address] [place], [place] [address]Dr. Shahbaz Rogel LEUKOCYTES Negative Normal NEGATIVE [facility] Comment on above: Performed By: #### E RUR ####[facility] Iemebginua[address] [place], [place] [address]Dr. Shahbaz Rogel Nitrite Ql (U) Negative Normal NEGATIVE [facility] Comment on above: Performed By: #### E RUR ####[facility] Cxdfkjqelr68[address] [place], [place] [address]Dr. Shahbaz Rogel pH (U) 6.0 [pH] Normal 5-9 [facility] Comment on above: Performed By: #### E RUR ####[facility] Qrwdgxinjc36[address] [place], [place] [address]Dr. Shahbaz Rogel SPEC GRAVITY 1.020 Normal 1.005-<=1. 025 [facility] Comment on above: Performed By: #### E RUR ####[facility] [address]emoz[address] [place] [address]Dr. Shahbaz Rogel UA PROTEIN Negative Normal NEGATIVE/ TRACE [facility] Comment on above: Performed By: #### E RUR ####[facility] [address]rxwmc[address] [place] [address]Dr. Shahbaz Rogel UR MICRO IND NOT INDICATED Normal [facility] Comment on above: Performed By: #### E RUR ####[facility] Xxewjyjzpc[address] [place] [address]Dr. Shahbaz Rogel Urobilinogen Qn (U) 0.2 {Melida'U}/dL Normal 0.2 - 1. 0 [facility] Comment on above: Performed By: #### E RUR ####[facility] V[address]qjuehos[address] [place] [address]Dr. Shahbaz Rogel POINT OF CARE GLUCOSEon 01-01 Glucose [Mass/Vol] 151 mg/dL Critically high 74-106 [facility] Comment on above: Performed By: #### P OCGLUC ####[facility] Ehxjfytlkt[address] [place] [address]Dr. Shahbaz Rogel Glucose [Mass/Vol] 248 mg/dL Critically high 74-106 [facility] Comment on above: Performed By: #### P OCGLUC ####[facility] Ydqnoqqpln[address] [place] [address]Dr. Shahbaz Rogel PROF 14(COMP METB)on 022 Albumin [Mass/Vol] 2.8 g/dL Critically low 3.4-5.0 [facility] Comment on above: Performed By: #### C MP ####[facility] [address]fxttjautb[address] [place] [address]Dr. Shahbaz Rogel Albumin/Globulin [Mass ratio] 0.9 {ratio} Normal [facility] Comment on above: Performed By: #### C MP ####[facility] Zslipuunda[address] [place] [address]Dr. Shahbaz Rogel ALP [Catalytic activity/Vol] 90 U/L Normal 46-116 [facility] Comment on above: Performed By: #### C MP ####[facility] Ffiojjpspz[address] [place] [address]Dr. Shahbaz Juan F ALT [Catalytic activity/Vol] 20 U/L Normal 14-59 [facility] Comment on above: Performed By: #### C MP ####[facility] Cmoooubvmi[address] [place] [address]Dr. Shahbaz Rogel Anion gap [Moles/Vol] 8.9 mmol/L Normal [facility] Comment on above: Performed By: #### C MP ####[facility] Vagyhfvgoc[address] [place] [address]Dr. Shahbaz Juan F AST [Catalytic activity/Vol] 14 U/L Critically low 15-37 [facility] Comment on above: Performed By: #### C MP ####[facility] Sockfdlsvp[address] [place], [place] [address]Dr. Shahbaz Rogel Bilirubin [Mass/Vol] 0.1 mg/dL Critically low 0.2-1.3 [facility] Comment on above: Performed By: #### C MP ####[facility] Jqqdhiarmc[address] [place], [place] [address]Dr. Shahbaz Rogel Calcium [Mass/Vol] 8.2 mg/dL Critically low 8.5-10.1 Th [facility] Comment on above: Performed By: #### C MP ####[facility] Ywoqhwphlt[address] [place], [place] [address]Dr. Shahbaz Rogel Chloride [Moles/Vol] 110 mmol/L Critically high 98-107 [facility] Comment on above: Performed By: #### C MP ####[facility] Gflszieexn[address] [place], [place] [address]Dr. Shahbaz Rogel CO2 [Moles/Vol] 28.0 mmol/L Normal 22.0-30.0 [facility] Comment on above: Performed By: #### C MP ####[facility] Fopyzngbux[address] [place], [place] [address]Dr. Shahbaz Rogel Creatinine [Mass/Vol] 0.78 mg/dL Normal 0.52-1.04 [facility] Comment on above: Performed By: #### C MP ####[facility] [address] [place] [id number]. Shahbaz Rogel EGFR-AF BENINESE >60 Normal >=60 [facility] Comment on above: Performed By: #### C MP ####[facility] S[address]bs[address]zey[address] [place] [id number]. Shahbaz Rogel EGFR-NON AF BENINESE >60 Normal >=60 [facility] Comment on above: Performed By: #### C MP ####[facility] Lxbqxxxltd72[address] [place] [id number]. Shahbaz Rogel Globulin (S) [Mass/Vol] 3.1 g/dL Normal [facility] Comment on above: Performed By: #### C MP ####[facility] Whaejbdoqx[address] [place] [address]Dr. Shahbaz Rogel Glucose [Mass/Vol] 121 mg/dL Critically high 74-106 [facility] Comment on above: Performed By: #### C MP ####[facility] Nswglnkaal[address] [place] [address]Dr. Shahbaz Rogle Potassium [Moles/Vol] 3.9 mmol/L Normal 3.4-5.0 [facility] Comment on above: Performed By: #### C MP ####[facility] Rwjzyvwxkz[address] [place] [id number]. Shahbaz Rogel Protein [Mass/Vol] 5.9 g/dL Critically low 6.1-8.2 Th [facility] Comment on above: Performed By: #### C MP ####[facility] Ltgegmccpz4[address] [place] [id number]. Shahbaz Rogel Sodium [Moles/Vol] 143 mmol/L Normal 137-145 [facility] Comment on above: Performed By: #### C MP ####[facility] Gqchclolar[address] [place] [address]Dr. Shahbaz Rogel Urea nitrogen [Mass/Vol] 26.0 mg/dL Critically high 7.0-18.0 [facility] Comment on above: Performed By: #### C MP ####[facility] Qmvzpqngtz[address] [place] [address]Dr. Shahbaz Rogel Urea nitrogen/Creatinine [Mass ratio] 33.3 mg/mg Normal [facility] Comment on above: Performed By: #### C MP ####[facility] Vdojchkiil[address] [place], [place] [address]Dr. Shahbaz Rogel FAPLB-2-TIVMQOKVADVpc 2021 Hnrjo-6-Rccflgxhxpq, Serum 154 mg/dL Normal 101-187 [facility] Comment on above: Performed By: #### A LPHA-1 ####[facility] Bhuvmtnktb[address]27[address] [place], [place] [address]Dr. Shahbaz Rogel CBC AUTO DIFFon 01-20-2022 BASO # 0.0 103/ul Normal 0.0-0.1 [facility] Comment on above: Performed By: #### C BC ####[facility] Mvovlxsdmf6417[address] [place], [place] [address]Dr. Lilajarrod Rogel Basophils/100 WBC (Bld) 0.0 % Critically low 0.2-2.0 [facility] Comment on above: Performed By: #### C BC ####[facility] Shsgaftfcz68[address] [place], [place] [address]Dr. Shahbaz Rogel EO # 0.0 103/ul Normal 0.0-0.7 [facility] Comment on above: Performed By: #### C BC ####[facility] Rtavgkyhkx[address] [place], [place] [address]Dr. Shahbaz Juan F Eosinophils/100 WBC (Bld) 0.0 % Critically low 0.9-7.0 [facility] Comment on above: Performed By: #### C BC ####[facility] Oichhafqym[address] [place], [place] [address]Dr. Shahbaz Rogel Erythrocyte distribution width (RBC) [Ratio] 13.7 % Normal 11.0-15.0 [facility] Comment on above: Performed By: #### C BC ####[facility] Byhmlyvhiq[address] [place], [place] [address]Dr. Shahbaz Juan F Hematocrit (Bld) [Volume fraction] 41.2 % Normal 36.0-48.0 [facility] Comment on above: Performed By: #### C BC ####[facility] [address]zovxxiqks[address] [place] [address]Dr. Shahbaz Rogel Hemoglobin (Bld) [Mass/Vol] 12.8 g/dL Normal 12.0-16.0 [facility] Comment on above: Performed By: #### C BC ####[facility] [address]wkvyjnvi[address] [place] [address]Dr. Shahbaz Rogel IG # 0.10 10e3/ul Critically high 0.00-0.03 [facility] Comment on above: Performed By: #### C BC ####[facility] Pcplqjyhps[address] [place], [place] [address]Dr. Shahbaz Rogel IG % 0.5 % Normal 0.0-0.5 [facility] Comment on above: Performed By: #### C BC ####[facility] Srsjbkfmri[address] [place], [place] [address]DrChen Rogel LYMPH # 0.7 103/ul Critically low 1.2-3.8 [facility] Comment on above: Performed By: #### C BC ####[facility] Gvsfdiwnhz[address] [place], [place] [address]Dr. Shahbaz Rogel Lymphocytes/100 WBC (Bld) 6.2 % Critically low 20.5-60.0 [facility] Comment on above: Result Comment: dif. not rqd. same as 01/18/22 Performed By: #### C BC ####[facility] Xmzlaeaoeg[address] [place], [place] [address]Dr. Shahbaz Rogel MANUAL DIFF REQ NO Normal [facility] Comment on above: Performed By: #### C BC ####[facility] Weiohxgxtz1300[address] [place], [place] [address]Dr. Shahbaz Rogel MCH (RBC) [Entitic mass] 27.2 pg Normal 26.7-34.0 [facility] Comment on above: Performed By: #### C BC ####[facility] Oxenazsxbt[address] [place], [place] [address]Dr. Shahbaz Rogel MCHC (RBC) [Mass/Vol] 31.1 g/dL Normal 29.9-35.2 [facility] Comment on above: Performed By: #### C BC ####[facility] Sscflttiie[address] [place] [address]DrChen Shahbaz Juan F MCV (RBC) [Entitic vol] 87.5 fL Normal 81.0-99.0 [facility] Comment on above: Performed By: #### C BC ####[facility] Czwwvlzchm[address] [place], [place] [address]DrChen Rogel MONO # 0.2 103/ul Critically low 0.3-0.8 [facility] Comment on above: Performed By: #### C BC ####[facility] Tcwcsfsiyg899[address] [place], [place] [address]DrChen Rogel Monocytes/100 WBC (Bld) 1.7 % Normal 1.7-12.0 [facility] Comment on above: Performed By: #### C BC ####[facility] Qeahyrjtld8[address] [place], [place] [address]DrChen Rogel NEUT # 9.8 103/ul Critically high 1.4-6.5 [facility] Comment on above: Performed By: #### C BC ####[facility] Boianwprkg9917[address] [place], [place] [address]DrChen Rogel Neutrophils/100 WBC (Bld) 91.6 % Critically high 43.0-75.0 [facility] Comment on above: Performed By: #### C BC ####[facility] Dwitesrayn[address] [place], [place] [address]DrChen Rogel Platelet mean volume (Bld) [Entitic vol] 10.0 fL Normal 9.5-13.5 [facility] Comment on above: Performed By: #### C BC ####[facility] Uxtofpljba[address] [place], [place] [address]DrChen Rogel PLT 198 103/ul Normal 150-450 [facility] Comment on above: Performed By: #### C BC ####[facility] Iifquyebrb889[address] [place], [place] [address]DrChen Rogel RBC 4.71 106/ul Normal 4.20-5.40 [facility] Comment on above: Performed By: #### C BC ####[facility] Jbeqwfwdmm[address] [place] [address]Dr. Shahbaz Rogel WBC 10.7 103/ul Normal 4.0-11.0 [facility] Comment on above: Performed By: #### C BC ####[facility] Rqormikyjo5[address] [place] [address]Dr. Shahbaz Rogel POINT OF CARE GLUCOSEon 01-01 Glucose [Mass/Vol] 157 mg/dL Critically high 74-106 [facility] Comment on above: Performed By: #### P OCGLUC ####[facility] Wdpvwikslq[address] [place], [place] [address]Dr. Shahbaz Rogel Glucose [Mass/Vol] 225 mg/dL Critically high 74-106 [facility] Comment on above: Performed By: #### P OCGLUC ####[facility] Icrlqkhzhw23[address] [place], [place] [address]Dr. Shahbaz Rogel Glucose [Mass/Vol] 185 mg/dL Critically high 74-106 [facility] Comment on above: Performed By: #### P OCGLUC ####[facility] Lnxldgrwve9934[address] [place], [place] [address]Dr. Shahbaz Rogel Glucose [Mass/Vol] 134 mg/dL Critically high 74-106 [facility] Comment on above: Performed By: #### P OCGLUC ####[facility] Urtvyasjwo[address] [place], [place] [address]Dr. Shahbaz Juan F PROF 14(COMP METB)on 022 Albumin [Mass/Vol] 3.0 g/dL Critically low 3.4-5.0 [facility] Comment on above: Performed By: #### C MP ####[facility] Lxzjljklfw[address] [place], [place] [address]Dr. Shahbaz Rogel Albumin/Globulin [Mass ratio] 0.9 {ratio} Normal [facility] Comment on above: Performed By: #### C MP ####[facility] Dawxcsphif[address] [place] [address]Dr. Shahbaz Rogel ALP [Catalytic activity/Vol] 81 U/L Normal 46-116 [facility] Comment on above: Performed By: #### C MP ####[facility] Gmiotpurvh[address] [place], [place] [address]Dr. Shahbaz Juan F ALT [Catalytic activity/Vol] 14 U/L Normal 14-59 [facility] Comment on above: Performed By: #### C MP ####[facility] Jlbyghplta[address] [place], [place] [address]Dr. Lilajarrod Juan F Anion gap [Moles/Vol] 13.1 mmol/L Normal Th e [facility] Comment on above: Performed By: #### C MP ####[facility] Maplzttbcg[address] [place], [place] [address]Dr. Shahbaz Juan F AST [Catalytic activity/Vol] 20 U/L Normal 15-37 [facility] Comment on above: Performed By: #### C MP ####[facility] Kvtihbiheq65[address] [place], [place] [address]Dr. Shahbaz Juan F Bilirubin [Mass/Vol] 0.3 mg/dL Normal 0.2-1.3 [facility] Comment on above: Performed By: #### C MP ####[facility] Sqlbhkwaum24[address] [place], [place] [address]Dr. Lilajarrod Rogel Calcium [Mass/Vol] 8.5 mg/dL Normal 8.5-10.1 [facility] Comment on above: Performed By: #### C MP ####[facility] Iagmltbtbz74[address] [place], [place] [address]Dr. Lilajarrod Rogel Chloride [Moles/Vol] 107 mmol/L Normal 98-107 [facility] Comment on above: Performed By: #### C MP ####[facility] Uxdfmltgse[address] [place], [place] [address]Dr. Shahbaz Rogel CO2 [Moles/Vol] 24.0 mmol/L Normal 22.0-30.0 [facility] Comment on above: Performed By: #### C MP ####[facility] Uxffsvgftt377[address] [place], [place] [address]Dr. Shahbaz Rogel Creatinine [Mass/Vol] 1.00 mg/dL Normal 0.52-1.04 [facility] Comment on above: Performed By: #### C MP ####[facility] [address] [place] [id number]. Shahbaz Juan F EGFR-AF BENINESE >60 Normal >=60 [facility] Comment on above: Performed By: #### C MP ####[facility] Eedwpxcqfp84[address] [place] [id number]. Shahbaz Rogel EGFR-NON AF BENINESE 57 mL/min/1.73m2 Critically low >=60 [facility] Comment on above: Performed By: #### C MP ####[facility] Wzymoxerbz[address] [place] [address]Dr. Lilajarrod Rogel Globulin (S) [Mass/Vol] 3.4 g/dL Normal [facility] Comment on above: Performed By: #### C MP ####[facility] Hzipskqosy278[address] [place], [place] [address]Dr. Shahbaz Rogel Glucose [Mass/Vol] 153 mg/dL Critically high 74-106 [facility] Comment on above: Performed By: #### C MP ####[facility] Fghjexehta23[address] [place], [place] [address]Dr. Shahbaz Rogel Potassium [Moles/Vol] 4.1 mmol/L Normal 3.4-5.0 [facility] Comment on above: Performed By: #### C MP ####[facility] Tzgyivjwuq[address] [place], [place] [address]Dr. Shahbaz Rogel Protein [Mass/Vol] 6.4 g/dL Normal 6.1-8.2 [facility] Comment on above: Performed By: #### C MP ####[facility] Einqkgrykt[address] [place], [place] [address]Dr. Shahbaz Rogel Sodium [Moles/Vol] 140 mmol/L Normal 137-145 [facility] Comment on above: Performed By: #### C MP ####[facility] G[address]vpnsvx[address] [place], [place] [id number]. Shahbaz Rogel Urea nitrogen [Mass/Vol] 26.0 mg/dL Critically high 7.0-18.0 [facility] Comment on above: Performed By: #### C MP ####[facility] Rvodmqgldt[address] [place], [place] [address]Dr. Shahbaz Rogel Urea nitrogen/Creatinine [Mass ratio] 26.5 mg/mg Normal [facility] Comment on above: Performed By: #### C MP ####[facility] Naelohczui[address] [place], [place] [address]Dr. Shahbaz Rogel BNPon 01-19-2022 Natriuretic peptide B (Bld) [Mass/Vol] 117.0 pg/mL Normal <=900.0 [facility] Comment on above: Performed By: #### B [employer]AMMER [employer]IPPER, CMP ####[facility] Qmdvmbbumm155[address] [place], [place] [address]Dr. Shahbaz Rogel CBC AUTO DIFFon 01-19-2022 BASO # 0.0 103/ul Normal 0.0-0.1 [facility] Comment on above: Performed By: #### C BC ####[facility] Curkpqveqd90[address] [place], [place] [address]Dr. Shahbaz Juan F Basophils/100 WBC (Bld) 0.0 % Critically low 0.2-2.0 [facility] Comment on above: Performed By: #### C BC ####[facility] B[address]crbrajfu[address] [place], [place] [address]Dr. Shahbaz Rogel EO # 0.0 103/ul Normal 0.0-0.7 [facility] Comment on above: Performed By: #### C BC ####[facility] Ftvodzlszj[address] [place], [place] [address]Dr. Shahbaz Juan F Eosinophils/100 WBC (Bld) 0.0 % Critically low 0.9-7.0 [facility] Comment on above: Performed By: #### C BC ####[facility] Zaxbtffjfo[address] [place], [place] [address]Dr. Shahbaz Rogel Erythrocyte distribution width (RBC) [Ratio] 13.4 % Normal 11.0-15.0 [facility] Comment on above: Performed By: #### C BC ####[facility] [address]hlwl[address] [place] [address]Dr. Shahbaz Rogel Hematocrit (Bld) [Volume fraction] 46.3 % Normal 36.0-48.0 [facility] Comment on above: Performed By: #### C BC ####[facility] [address]qfegohhpb60[address] [place] [address]Dr. Shahbaz Rogel Hemoglobin (Bld) [Mass/Vol] 14.3 g/dL Normal 12.0-16.0 [facility] Comment on above: Performed By: #### C BC ####[facility] [address]xf[address]mehyf[address] [place] [address]Dr. Shahbaz Rogel IG # 0.00 10e3/ul Normal 0.00-0.03 [facility] Comment on above: Performed By: #### C BC ####[facility] [address] [place] [address]Dr. Lilajarrod Rogel IG % 0.0 % Normal 0.0-0.5 [facility] Comment on above: Performed By: #### C BC ####[facility] Xwzpgheyby[address] [place] [address]Dr. Shahbaz Juan F LYMPH # 0.6 103/ul Critically low 1.2-3.8 [facility] Comment on above: Performed By: #### C BC ####[facility] Sbatuxeirs[address] [place] [address]Dr. Lilajarrod Rogel Lymphocytes/100 WBC (Bld) 14.2 % Critically low 20.5-60.0 [facility] Comment on above: Performed By: #### C BC ####[facility] Tinjqrwlkv[address] [place] [address]Dr. Lilajarrod Rogel MANUAL DIFF REQ NO Normal [facility] Comment on above: Performed By: #### C BC ####[facility] Rfkvzblmuk[address] [place], [place] [address]Dr. Shahbaz Rogel MCH (RBC) [Entitic mass] 27.7 pg Normal 26.7-34.0 [facility] Comment on above: Performed By: #### C BC ####[facility] Xntmkdxcai11[address] [place] [id number]. Shahbaz Rogel MCHC (RBC) [Mass/Vol] 30.9 g/dL Normal 29.9-35.2 [facility] Comment on above: Performed By: #### C BC ####[facility] Qcqjyqqqve35[address] [place] [id number]. Shahbaz Rogel MCV (RBC) [Entitic vol] 89.6 fL Normal 81.0-99.0 [facility] Comment on above: Performed By: #### C BC ####[facility] Jaapizgqbc[address] [place] [id number]. Shahbaz Rogel MONO # 0.0 103/ul Critically low 0.3-0.8 [facility] Comment on above: Performed By: #### C BC ####[facility] Gscfrchlsf[address] [place], [place] [address]Dr. Lilajarrod Rogel Monocytes/100 WBC (Bld) 1.0 % Critically low 1.7-12.0 [facility] Comment on above: Performed By: #### C BC ####[facility] Wocbazswgn[address] [place], [place] [address]Dr. Shahbaz Rogel NEUT # 3.5 103/ul Normal 1.4-6.5 [facility] Comment on above: Performed By: #### C BC ####[facility] Isxbnwgriv[address] [place], [place] [address]Dr. Shahbaz Rogel Neutrophils/100 WBC (Bld) 84.8 % Critically high 43.0-75.0 [facility] Comment on above: Performed By: #### C BC ####[facility] Nv[address]rzytwx2440 [place] [id number]. Shahbaz Rogel Platelet mean volume (Bld) [Entitic vol] 9.8 fL Normal 9.5-13.5 [facility] Comment on above: Performed By: #### C BC ####[facility] Cptdujabil[address] [place], [place] [id number]. Shahbaz Juan F PLT 185 103/ul Normal 150-450 [facility] Comment on above: Performed By: #### C BC ####[facility] Tzimifdqym[address] [place] [id number]. Shahbaz Rogel RBC 5.17 106/ul Normal 4.20-5.40 [facility] Comment on above: Performed By: #### C BC ####[facility] Rwtwdygsuf7632 [place] [address]Dr. Shahbaz Rogel WBC 4.2 103/ul Normal 4.0-11.0 [facility] Comment on above: Performed By: #### C BC ####[facility] Ghjjikmgag4[address] [place] [address]Dr. Shahbaz Rogel LACTATE/LACTIC ACIDon 2021 Lactate [Moles/Vol] 1.7 mmol/L Normal 0.7-2.0 [facility] Comment on above: Performed By: #### L ACT ####[facility] Nusvilqgzs67[address] [place] [address]Dr. Shahbaz Rogel POINT OF CARE GLUCOSEon 01-01 Glucose [Mass/Vol] 173 mg/dL Critically high -106 [facility] Comment on above: Performed By: #### P OCGLUC ####[facility] Sqczmacmlr0769 [place] [address]Dr. Shahbaz Rogel Glucose [Mass/Vol] 181 mg/dL Critically high -106 [facility] Comment on above: Performed By: #### P OCGLUC ####[facility] Mftkzzqoer8[address] [place] [address]Dr. Shahbaz Rogel Glucose [Mass/Vol] 154 mg/dL Critically high -106 [facility] Comment on above: Performed By: #### P OCGLUC ####[facility] Xblplagfyz4001 [place] [address]Dr. Shahbaz Rogel PROF 14(COMP METB)on 022 Albumin [Mass/Vol] 3.5 g/dL Normal 3.4-5.0 [facility] Comment on above: Performed By: #### B AIR HAMMER STRIPPER, CMP ####[facility] Mietxcdwav5058 [place] [address]Dr. Shahbaz Rogel Albumin/Globulin [Mass ratio] 0.9 {ratio} Normal [facility] Comment on above: Performed By: #### B AIR HAMMER STRIPPER, CMP ####[facility] Yhhnrhfwjh27[address] [place] [address]Dr. Shahbaz Rogel ALP [Catalytic activity/Vol] 107 U/L Normal 46-116 [facility] Comment on above: Performed By: #### B AIR HAMMER STRIPPER, CMP ####[facility] Ukkdaoldzg8115 [place] [address]Dr. Shahbaz Juan F ALT [Catalytic activity/Vol] 18 U/L Normal 14-59 [facility] Comment on above: Performed By: #### B AIR HAMMER STRIPPER, CMP ####[facility] Khbpooktoa0481 [place] [address]Dr. Lilajarrod Juan F Anion gap [Moles/Vol] 14.1 mmol/L Normal Th e [facility] Comment on above: Performed By: #### B AIR HAMMER STRIPPER, CMP ####[facility] Iowulciser[address] [place], [place] [address]Dr. Lilajarrod Rogel AST [Catalytic activity/Vol] 19 U/L Normal 15-37 [facility] Comment on above: Performed By: #### B AIR HAMMER STRIPPER, CMP ####[facility] Ifkehlhyyy6748 [place] [address]Dr. Lilajarrod Juan F Bilirubin [Mass/Vol] 0.5 mg/dL Normal 0.2-1.3 [facility] Comment on above: Performed By: #### B AIR HAMMER STRIPPER, CMP ####[facility] Ywqtsylxzh4024 [place] [address]Dr. Shahbaz Rogel Calcium [Mass/Vol] 8.5 mg/dL Normal 8.5-10.1 [facility] Comment on above: Performed By: #### B AIR HAMMER STRIPPER, CMP ####[facility] Brojghaxha1454 [place] [address]Dr. Shahbaz Rogel Chloride [Moles/Vol] 103 mmol/L Normal 98-107 [facility] Comment on above: Performed By: #### B AIR HAMMER STRIPPER, CMP ####[facility] Cubqtxvixq2178 [place] [address]Dr. Shahbaz Rogel CO2 [Moles/Vol] 25.4 mmol/L Normal 22.0-30.0 [facility] Comment on above: Performed By: #### B AIR HAMMER STRIPPER, CMP ####[facility] Cfocqmszwr9020 [place] [address]Dr. Shahbaz Rogel Creatinine [Mass/Vol] 1.48 mg/dL Critically high 0.52-1.04 [facility] Comment on above: Performed By: #### B AIR HAMMER STRIPPER, CMP ####[facility] Pczkjrxlvi[address] [place], [place] [address]Dr. Shahbaz Rogel EGFR-AF BENINESE 44 mL/min/1.73m2 Critically low >=60 [facility] Comment on above: Performed By: #### B AIR HAMMER STRIPPER, CMP ####[facility] Jyxdesgedq[address] [place], [place] [address]Dr. Shahbaz Rogel EGFR-NON AF BENINESE 36 mL/min/1.73m2 Critically low >=60 [facility] Comment on above: Performed By: #### B AIR HAMMER STRIPPER, CMP ####[facility] Zuarppzomr[address] [place], [place] [address]Dr. Shahbaz Rogel Globulin (S) [Mass/Vol] 3.7 g/dL Normal [facility] Comment on above: Performed By: #### B AIR HAMMER STRIPPER, CMP ####[facility] Hcobhltcs[address] [place], [place] [address]Dr. Shahbaz Rogel Glucose [Mass/Vol] 203 mg/dL Critically high 74-106 [facility] Comment on above: Performed By: #### B AIR HAMMER STRIPPER, CMP ####[facility] Nzltbijcyg[address] [place], [place] [address]Dr. Shahbaz Rogel Potassium [Moles/Vol] 3.5 mmol/L Normal 3.4-5.0 [facility] Comment on above: Performed By: #### B AIR HAMMER STRIPPER, CMP ####[facility] Zhcepsvmey[address] [place], [place] [address]Dr. Shahbaz Rogel Protein [Mass/Vol] 7.2 g/dL Normal 6.1-8.2 [facility] Comment on above: Performed By: #### B AIR HAMMER STRIPPER, CMP ####[facility] Iq[address]jzwjcf[address] [place], [place] [address]Dr. Shahbaz Rogel Sodium [Moles/Vol] 139 mmol/L Normal 137-145 [facility] Comment on above: Performed By: #### B AIR HAMMER STRIPPER, CMP ####[facility] Lgzshswell[address] [place], [place] [address]Dr. Shahbaz Rogel Urea nitrogen [Mass/Vol] 17.0 mg/dL Normal 7.0-18.0 [facility] Comment on above: Performed By: #### B AIR HAMMER STRIPPER, CMP ####[facility] Whslrrtpeu[address] [place], [place] [address]Dr. Shahbaz Rogel Urea nitrogen/Creatinine [Mass ratio] 11.5 mg/mg Normal [facility] Comment on above: Performed By: #### B AIR HAMMER STRIPPER, CMP ####[facility] Yrcsoccher[address] [place], [place] [address]Dr. Shahbaz Rogel BNPon 01-18-2022 Natriuretic peptide B (Bld) [Mass/Vol] 55.0 pg/mL Normal <=900.0 [facility] Comment on above: Performed By: #### C MP, BNP, HSTROPN ####[facility] Enzbopnazc[address] [place], [place] [address]Dr. Shahbaz Juan F CBC W MANUAL DIFFon 01-19-20 ATYPICAL LYMPH # 0.12 103/ul Normal [facility] Comment on above: Performed By: #### C CAIN ####[facility] Ldmdzsixqx7266 [place] [address]Dr. Shahbaz Juan F ATYPICAL LYMPH % 2 % Normal [facility] Comment on above: Performed By: #### C BCMAN ####[facility] Lzrpssaevf[address] [place], [place] [address]Dr. Lilajarrod Rogel BAND # 0.0 103/ul Normal 0.0-0.3 [facility] Comment on above: Performed By: #### C BCMAN ####[facility] [address]btplplcet[address] [place], [place] [address]Dr. Shahbaz Rogel BAND % 0 % Normal 0-5 [facility] Comment on above: Performed By: #### C CAIN ####[facility] Xdblospccf[address] [place], [place] [address]Dr. Shahbaz Rogel BASOM # 0.00 103/ul Normal 0.00-0.10 [facility] Comment on above: Performed By: #### C BCBRICE ####[facility] Aznsjzymoo39[address] [place] [address]Dr. Sahhbaz Rogel BASOM % 0.0 % Critically low 0.2-2.0 [facility] Comment on above: Performed By: #### C BCMAN ####[facility] Envjivxwll4560 [place] [address]Dr. Shahbaz Rogel BLAST # Normal [facility] Comment on above: Performed By: #### C BCBRICE ####[facility] Tgazbeumbn4358 [place] [address]Dr. Shahbaz Rogel BLAST % Normal [facility] Comment on above: Performed By: #### C CAIN ####[facility] P[address]tucvaf[address] [place], [place] [address]Dr. Shahbaz Rogel CORRECTED WBC Normal 4.0-11.0 [facility] Comment on above: Performed By: #### C BCBRICE ####[facility] Uhyidgwfwe39[address] [place] [address]Dr. Shahbaz Rogel EOS # 0.25 103/ul Normal 0.00-0.70 [facility] Comment on above: Performed By: #### C CAIN ####[facility] Pkrknfrffa3582 [place] [address]Dr. Shahbaz Rogel EOS% 4.0 % Normal 0.9-7.0 [facility] Comment on above: Performed By: #### C BCBRICE ####[facility] Ouwlbfhtne60[address] [place] [address]Dr. Shahbaz Rogel HCT 46.8 % Normal 36.0-48.0 [facility] Comment on above: Performed By: #### C BCBRICE ####[facility] Qynhlkrgty7919 [place] [address]Dr. Shahbaz Rogel HGB 14.9 g/dl Normal 12.0-16.0 [facility] Comment on above: Performed By: #### C CAIN ####[facility] Gfzkpasnbt9783 [place], [place] [address]Us. Shahbaz Rogel LYMPHM # 0.68 103/ul Critically low 1.20-3.80 [facility] Comment on above: Performed By: #### C CAIN ####[facility] Nativtbevb1040 [place], [place] [address]Fr. Shahbaz Rogel LYMPHM% 11.0 % Critically low 20.5-60.0 [facility] Comment on above: Performed By: #### C CAIN ####[facility] Dazlyoolcq7572 [place], [place] [address]Zo. Shahbaz Rogel MCH 27.6 pg Normal 26.7-34.0 [facility] Comment on above: Performed By: #### C CAIN ####[facility] Inbijeupvc7725 [place], [place] [address]Dl. Shahbaz Rogel MCHC 31.8 g/dl Normal 29.9-35.2 [facility] Comment on above: Performed By: #### C CAIN ####[facility] Ukawhjtpmr2489 [place] [id number]. Shahbaz Rogel MCV 86.8 fL Normal 81.0-99.0 [facility] Comment on above: Performed By: #### Cheri BARLOW ####[facility] Zzronpcrou3083 [place] [id number]. Shahbaz Rogel METAMYELOCYTE # Normal [facility] Comment on above: Performed By: #### C CAIN ####[facility] Zlvxerbhmz3283 [place], [place] [address]Az. Shahbaz Rogel METAMYELOCYTE % Normal [facility] Comment on above: Performed By: #### C CAIN ####[facility] Vlpzpbfpku9037 [place] [id number]. Shahbaz Rogel MONOM# 0.19 103/ul Critically low 0.30-0.80 [facility] Comment on above: Performed By: #### C CAIN ####[facility] Gphtflthaf1297 [place], [place] [address]Eo. Shahbaz Rogel MONOM% 3.0 % Normal 1.7-12.0 [facility] Comment on above: Performed By: #### C CAIN ####[facility] Tbucynsoyr9473 [place] [id number]. Shahbaz Rogel MPV 9.6 fL Normal 9.5-13.5 [facility] Comment on above: Performed By: #### C CAIN ####[facility] Bibybdcwlq8891 [place], [place] [address]Su. Shahbaz Rogel MYELOCYTE # Normal [facility] Comment on above: Performed By: #### C CAIN ####[facility] Kzijxwqglp5147 [place], [place] [address]Dj. Shahbaz Rogel MYELOCYTE % Normal [facility] Comment on above: Performed By: #### C CAIN ####[facility] Ugjkztnzws3180 [place] [id number]. Shahbaz Rogel NRBC Normal [facility] Comment on above: Performed By: #### Cheri BARLOW ####[facility] Adtumxmodc4735 [place] [id number]. Shahbaz Rogel PLT 203 103/ul Normal 150-450 [facility] Comment on above: Performed By: #### C CAIN ####[facility] Fnnvbaibxc1199 [place] [id number]. Shahbaz Rogel RBC 5.39 106/ul Normal 4.20-5.40 [facility] Comment on above: Performed By: #### Cheri BARLOW ####[facility] Qcvlerrdep9615 [place] [id number]. Shahbaz Rogel RDW 13.7 % Normal 11.0-15.0 [facility] Comment on above: Performed By: #### C CAIN ####[facility] Ayrndzdscf0079 [place] [id number]. Shahbaz Rogel SEG # 4.96 103/ul Normal 1.40-6.50 [facility] Comment on above: Performed By: #### C CAIN ####[facility] Viyzoimulg2017 [place] [id number]. Shahbaz Rogel SEG % 80.0 % Critically high 43.0-75.0 [facility] Comment on above: Performed By: #### C BCMAN ####[facility] Uvxhlfujny4871 [place], [place] [address]Ha. Shahbaz Rogel WBC 6.2 103/ul Normal 4.0-11.0 [facility] Comment on above: Performed By: #### C BCMAN ####[facility] Ojrudoyvav4139 [place], [place] [address]Wo. Shahbaz Rogel CULTURE BLOODon 01-18-2022 Microscopic examination of blood, culture Culture Observations: No growth at 5 days. Normal [facility] Comment on above: Performed By: #### B LDCX2 ####[facility] Nvdowlzjsk6444 [place] [id number]. Shahbaz Rogel Microscopic examination of blood, culture Culture Observations: No growth at 5 days Normal [facility] Comment on above: Performed By: #### B LDCX1 ####[facility] Gvosiezlse4353 [place] [id number]. Shahbaz Rogel Covid-19 PCR (CVDTB)on 12-31 SARS-CoV-2 (COVID-19) RNA PAVAN+probe Ql (Unsp spec) Not detected Normal NOT DETECTED [facility] Comment on above: Result Comment: This test is not yet approved or cleared by the [place] FDA. When there are no FDA-approved or cleared tests available, and other criteria are met, FDA can make tests available under an emergency access mechanism called an Emergency Use Authorization (EUA). The EUA for this test is supported by the [place] of Health and Human Service's (HHS's) declaration [...] with SARS-CoV-2. Performed By: #### C VDTBH ####[facility] [address]wtlsaxv[address] [place], [place] [address]Dr. Shahbaz Rogel D-DIMERon 01-18-2022 D-DIMER 0.29 mg/L FEU Normal 0.19-0.50 [facility] Comment on above: Performed By: #### D DIM ####[facility] Gtufioggyj[address] [place], [place] [address]Dr. Shahbaz [place] D-DIMER COMMENTS SEE BELOW Normal [facility] Comment on above: Result [...] generalized hospitalization. Performed By: #### D DIM ####[facility] Tesxjfoggo[address] [place], [place] [address]Dr. [facility] INFLUENZA A AND B AGon 01-18 INFLUANEGH SEE BELOW Normal [facility] Comment on above: Result Comment: Nega tive for Flu A protein angiten. Infection due to Flu A cannot be ruled out. Flu A angiten in the sample may be below the detection limit of the test. Performed By: #### I NFLUAB ####[facility] Vbhklunefw[address] [place], [place] [address]Dr. Shahbaz Rogel INFLUBNEGH SEE BELOW Normal [facility] Comment on above: Result Comment: Nega tive for Flu B protein antigen. Infection due to Flu B cannot be ruled out. Flu B antigen in the sample may be below the detection limit of the test. Performed By: #### I NFLUAB ####[facility] Aqoj[address]cdaw[address] [place], [place] [address]Dr. [facility] INFLUENZA A AG Negative Normal NEGATIVE SEE COMMENT [facility] Comment on above: Performed By: #### I NFLUAB ####[facility] Jqkjxufsdq7868 [place] [address]Dr. Shahbaz Rogel INFLUENZA B AG Negative Normal NEGATIVE SEE COMMENT [facility] Comment on above: Performed By: #### I NFLUAB ####[facility] Kytyvmbxlo[address] [place], [place] [address]Dr. Shahbaz Rogel INTERNAL CONTROLS Within Normal Limits Normal Wi thin Normal Limits [facility] Comment on above: Performed By: #### I NFLUAB ####[facility] B[address]pgnucei[address] [place], [place] [address]Dr. Shahbaz Rogel LACTATE/LACTIC ACIDon 2021 Lactate [Moles/Vol] 1.0 mmol/L Normal 0.7-2.0 [facility] Comment on above: Performed By: #### L ACT ####[facility] Pqtlapicsz[address] [place], [place] [address]Dr. Shahbaz Rogel PROF 14(COMP METB)on 022 Albumin [Mass/Vol] 3.8 g/dL Normal 3.4-5.0 [facility] Comment on above: Performed By: #### C MP, BNP, HSTROPN ####[facility] Hpskdrkllp[address] [place], [place] [address]Dr. Shahbaz Rogel Albumin/Globulin [Mass ratio] 1.0 {ratio} Normal [facility] Comment on above: Performed By: #### C MP, BNP, HSTROPN ####[facility] [address]ufwnjcqo[address] [place], [place] [address]Dr. Shahbaz Rogel ALP [Catalytic activity/Vol] 116 U/L Normal 46-116 [facility] Comment on above: Performed By: #### C MP, BNP, HSTROPN ####[facility] Lbpjkklldx1131 [place] [address]Dr. Shahbaz Rogel ALT [Catalytic activity/Vol] 16 U/L Normal 14-59 [facility] Comment on above: Performed By: #### C MP, BNP, HSTROPN ####[facility] Rhlrysgdep3230 [place] [address]Dr. Shahbaz Rogel Anion gap [Moles/Vol] 9.4 mmol/L Normal [facility] Comment on above: Performed By: #### C MP, BNP, HSTROPN ####[facility] Pcecvcfxzr8968 [place] [address]Dr. Shahbaz Rogel AST [Catalytic activity/Vol] 19 U/L Normal 15-37 [facility] Comment on above: Performed By: #### C MP, BNP, HSTROPN ####[facility] Pgzsnppppu1720 [place] [address]Dr. Shahbaz Rogel Bilirubin [Mass/Vol] 0.5 mg/dL Normal 0.2-1.3 [facility] Comment on above: Performed By: #### C MP, BNP, HSTROPN ####[facility] Soldwxpdnb[address] [place], [place] [address]Dr. Shahbaz Rogel Calcium [Mass/Vol] 8.9 mg/dL Normal 8.5-10.1 [facility] Comment on above: Performed By: #### C MP, BNP, HSTROPN ####[facility] Hsalkbbegc[address] [place], [place] [address]Dr. Shahbaz Rogel Chloride [Moles/Vol] 104 mmol/L Normal 98-107 [facility] Comment on above: Performed By: #### C MP, BNP, HSTROPN ####[facility] Zvzsrlykvl[address] [place], [place] [address]Dr. Shahbaz Rogel CO2 [Moles/Vol] 27.2 mmol/L Normal 22.0-30.0 [facility] Comment on above: Performed By: #### C MP, BNP, HSTROPN ####[facility] [address]btkyfndux[address] [place], [place] [address]Dr. Shahbaz Rogel Creatinine [Mass/Vol] 0.99 mg/dL Normal 0.52-1.04 [facility] Comment on above: Performed By: #### C MP, BNP, HSTROPN ####[facility] [address]xnwfwnbfc[address] [place], [place] [address]Dr. Shahbaz Rogel EGFR-AF BENINESE >60 Normal >=60 [facility] [facility] Comment on above: Performed By: #### C MP, BNP, HSTROPN ####[facility] [address] [place] [address]Dr. Shahbaz Rogel EGFR-NON AF BENINESE 58 mL/min/1.73m2 Critically low >=60 [facility] Comment on above: Performed By: #### C MP, BNP, HSTROPN ####[facility] [address] [place] [address]Dr. Shahbaz Rogel Globulin (S) [Mass/Vol] 3.8 g/dL Normal [facility] Comment on above: Performed By: #### C MP, BNP, HSTROPN ####[facility] [address] [place] [address]Dr. Shahbaz Rogel Glucose [Mass/Vol] 104 mg/dL Normal 74-106 [facility] Comment on above: Performed By: #### C MP, BNP, HSTROPN ####[facility] [address] [place] [address]Dr. Shahbaz Rogel Potassium [Moles/Vol] 3.6 mmol/L Normal 3.4-5.0 [facility] Comment on above: Performed By: #### C MP, BNP, HSTROPN ####[facility] [address] [place], [place] [address]Dr. Shahbaz Rogel Protein [Mass/Vol] 7.6 g/dL Normal 6.1-8.2 [facility] Comment on above: Performed By: #### C MP, BNP, HSTROPN ####[facility] [address] [place], [place] [address]Dr. Shahbaz Rogel Sodium [Moles/Vol] 137 mmol/L Normal 137-145 [facility] Comment on above: Performed By: #### C MP, BNP, HSTROPN ####[facility] [address] [place], [place] [address]Dr. Shahbaz Rogel Urea nitrogen [Mass/Vol] 9.0 mg/dL Normal 7.0-18.0 [facility] Comment on above: Performed By: #### C MP, BNP, HSTROPN ####[facility] [address] [place], [place] [address]Dr. Shahbaz Rogel Urea nitrogen/Creatinine [Mass ratio] 9.1 mg/mg Normal [facility] Comment on above: Performed By: #### C MP, BNP, HSTROPN ####[facility] [address] [place] [id number]. Shahbaz Rogel TROPONIN, HIGH SENSITIVITYon 01-18-2022 HSTROP 6.4 pg/mL Normal 4.0-35.5 [facility] Comment on above: Result Comment: CUT- OFF POINTS HAVE BEEN ESTABLISHED BASED ON THE FOURTH UNIVERSAL DEFINITIONS OF MYOCARDIALINFARCTION. THE UPPER REFERENCE LIMIT (URL) OF TROPONIN, DEFINED THE 99TH PERCENTILE OFcTnI DISTRIBUTION IN A REFERENCE POPULATION, HAS BEEN CONFIRMED THE DECISION THRESHOLDFOR [place] DIAGNOSIS. Performed By: #### C MP, BNP, HSTROPN ####[facility] [address] [place] [id number]. Shahbaz Rogel XR CHEST 2 Von 01-18-2022 XR CHEST 2 V Normal [facility] URINALYSIS REFLEXon 04-04-20 20 Appearance (U) CLEAR Normal CLEAR [facility] Comment on above: Order Comment: No: D o not add to previous draw Performed By: #### 1 0070, 27633, 22901, 12315, 58073, 09968 #### [facility] [address] [place] [address], [facility] Bilirubin [Mass/Vol] Negative Normal NEGATIVE [facility] Comment on above: Order Comment: No: D o not add to previous draw Performed By: #### 1 0070, 05429, 54942, 26148, 50629, 25704 #### [facility] [address] [place] [address], [place] BLOOD Negative Normal NEGATIVE [facility] Comment on above: Order Comment: No: D o not add to previous draw Performed By: #### 1 0070, 95616, 89059, 05196, 62331, 51310 #### [facility] [address] [place] [address], [place] Color (U) YELLOW Normal YELLOW [facility] Comment on above: Order Comment: No: D o not add to previous draw Performed By: #### 1 0070, 19335, 46621, 90108, 31587, 35458 #### [facility] [address] [place] [address], [facility] Glucose [Mass/Vol] Negative Normal NEGATIVE [facility] Comment on above: Order Comment: No: D o not add to previous draw Performed By: #### 1 0070, 46876, 03799, 17448, 84607, 65027 #### [facility] [address] [place] [address], [facility] KETONE Negative Normal NEGATIVE [facility] Comment on above: Order Comment: No: D o not add to previous draw Performed By: #### 1 0070, 34067, 65352, 00202, 38278, 13706 #### [facility] [address] [facility] [place] [address], [facility] LEUK ELIU Negative Normal NEGATIVE [facility] Comment on above: Order Comment: No: D o not add to previous draw Performed By: #### 1 0070, 50353, 42013, 35098, 39924, 22223 #### [facility] [address] [facility] [place] [place] [address], [facility] MICRO NOT DONE Normal [facility] Comment on above: Order Comment: No: D o not add to previous draw Result Comment: Micr oscopics not performed on urines with negative chemical reactions unless requested in original order Performed By: #### 1 0070, 16217, 43048, 79719, 58671, 93711 #### [facility] [address] [place] [address], [place] Nitrite Ql (U) Negative Normal NEGATIVE [facility] Comment on above: Order Comment: No: D o not add to previous draw Performed By: #### 1 0070, 57323, 21210, 44771, 89679, 68313 #### [facility] [address] [place] [address], [facility] pH (Bld) 5.0 Normal 5.0-8.0 [facility] Comment on above: Order Comment: No: D o not add to previous draw Performed By: #### 1 0070, 93867, 68427, 66203, 09517, 37009 #### [facility] [address] [place] [address], [facility] Protein (U) [Mass/Vol] Negative Normal NEGATIVE Th e [facility] Comment on above: Order Comment: No: D o not add to previous draw Performed By: #### 1 0070, 08224, 37600, 27048, 41105, 77253 #### [facility] [address] [place] [address], [facility] SPEC GRAV 1.012 Low 1.015-1.02 0 [facility] Comment on above: Order Comment: No: D o not add to previous draw Performed By: #### 1 0070, 44184, 41214, 31472, 56683, 58312 #### [facility] [address] [place] [address], [facility] BASIC METABOLIC PANELon 07-0 2-2020 Calcium [Mass/Vol] 8.4 mg/dL Low 8.6-10.3 [facility] Comment on above: Order Comment: No: D o not add to previous draw Performed By: #### 1 0070, 66992, 65875, 87523, 93595, 49945 #### [facility] [address] [place] [address], [place] Chloride [Moles/Vol] 101 mmol/L Normal 98-107 [facility] Comment on above: Order Comment: No: D o not add to previous draw Performed By: #### 1 0070, 52731, 28903, 28897, 81146, 47568 #### [facility] [address] [place] [address], [place] CO2 [Moles/Vol] 29 mmol/L Normal 21-31 [facility] Comment on above: Order Comment: No: D o not add to previous draw Performed By: #### 1 0070, 09175, 35255, 88929, 64337, 56719 #### [facility] [address] [place] [address], [place] Creatinine [Mass/Vol] 0.79 mg/dL Normal 0.60-1.20 [facility] Comment on above: Order Comment: No: D o not add to previous draw Performed By: #### 1 0070, 31519, 30491, 99101, 92407, 75432 #### [facility] [address] [place] [address], [place] GFR/1.73 sq M predicted among blacks MDRD (S/P/Bld) [Vol rate/Area] mL/min/{1.73_m2} Normal >60 [facility] Comment on above: Order Comment: No: D o not add to previous draw Performed By: #### 1 0070, 32902, 95857, 22729, 51751, 12108 #### [facility] [address] [place] [address], [place] GFR/1.73 sq M predicted among non-blacks MDRD (S/P/Bld) [Vol rate/Area] mL/min/{1.73_m2} Normal >60 [facility] Comment on above: Order Comment: No: D o not add to previous draw Performed By: #### 1 0070, 25535, 99455, 13483, 31377, 42734 #### [facility] [address] [place] [address], [place] Glucose [Mass/Vol] 91 mg/dL Normal 70-100 [facility] Comment on above: Order Comment: No: D o not add to previous draw Performed By: #### 1 0070, 32231, 49285, 73695, 47206, 98965 #### [facility] [address] [place] [address], [place] Potassium [Moles/Vol] 3.9 mmol/L Normal 3.5-5.1 [facility] Comment on above: Order Comment: No: D o not add to previous draw Performed By: #### 1 0070, 81868, 56982, 26456, 86788, 26709 #### [facility] [address] [place] [address], [facility] Sodium [Moles/Vol] 133 mmol/L Low 136-145 [facility] Comment on above: Order Comment: No: D o not add to previous draw Performed By: #### 1 0070, 92694, 13842, 26804, 65341, 49076 #### [facility] [address] [facility]. [address] Urea nitrogen [Mass/Vol] 10 mg/dL Normal 7-25 [facility] Comment on above: Order Comment: No: D o not add to previous draw Performed By: #### 1 0070, 45939, 15842, 11547, 94319, 25894 #### [facility] [address] [facility] [address], [facility] CBC W/DIFFon 04-02-2020 ABS BASOPHILS 0.0 10*3/uL Normal 0.0-0.2 [facility] Comment on above: Order Comment: No: D o not add to previous draw Performed By: #### 1 0070, 37752, 59843, 79577, 83650, 01977 #### [facility] [address] [place] [address], [facility] ABS IMM GRANS 0.0 10*3/uL Normal 0.0-0.2 [facility] Comment on above: Order Comment: No: D o not add to previous draw Performed By: #### 1 0070, 24701, 19116, 54228, 33660, 28188 #### [facility] [address] [place] [address], [facility] ABS NEUTROPHILS 4.5 10*3/uL Normal 1.6-7.6 [facility] Comment on above: Order Comment: No: D o not add to previous draw Performed By: #### 1 0070, 75607, 53293, 37285, 22898, 39460 #### [facility] [address] [place] [address], [facility] Basophils/100 WBC (Bld) 0.2 % Normal 0.0-1.0 [facility] Comment on above: Order Comment: No: D o not add to previous draw Performed By: #### 1 0070, 04879, 43609, 37973, 59909, 55272 #### [facility] [address] [facility] [address], [facility] Eosinophils (Bld) [#/Vol] 0.2 10*3/uL Normal 0.0-0.5 [facility] Comment on above: Order Comment: No: D o not add to previous draw Performed By: #### 1 0070, 27663, 72038, 92324, 19296, 42831 #### [facility] [address] [place] [address], [facility] Eosinophils/100 WBC (Bld) 3.6 % Normal 0.0-6.0 [facility] Comment on above: Order Comment: No: D o not add to previous draw Performed By: #### 1 0070, 82891, 12892, 95520, 43883, 95916 #### [facility] [address] [facility] [place] [id number], [place] Erythrocyte distribution width (RBC) [Ratio] 12.7 % Normal 11.5-15.0 [facility] Comment on above: Order Comment: No: D o not add to previous draw Performed By: #### 1 0070, 56252, 60263, 40688, 25389, 64007 #### [facility] [address] [place] [address], [place] Hematocrit (Bld) [Volume fraction] 42.9 % Normal 36.0-45.0 [facility] Comment on above: Order Comment: No: D o not add to previous draw Performed By: #### 1 0070, 83822, 40025, 95800, 50501, 24027 #### [facility] [address] [facility] [place] [address], [facility] Hemoglobin (Bld) [Mass/Vol] 13.5 g/dL Normal 12.0-15.0 [facility] Comment on above: Order Comment: No: D o not add to previous draw Performed By: #### 1 0070, 83538, 91997, 79071, 96638, 85004 #### [facility] [address] [place] [address], [facility] IMMATURE GRANS 0.3 % Normal 0.0-1.0 [facility] Comment on above: Order Comment: No: D o not add to previous draw Performed By: #### 1 0070, 63327, 98482, 92837, 27871, 48394 #### [facility] [address] [place] [address], [facility] Lymphocytes (Bld) [#/Vol] 1.1 10*3/uL Low 1.2-4.0 [facility] Comment on above: Order Comment: No: D o not add to previous draw Performed By: #### 1 0070, 96927, 55772, 13894, 84029, 31139 #### [facility] [address] [facility] [place] [address], [facility] Lymphocytes/100 WBC (Bld) 18.0 % Low 20.0-45.0 [facility] Comment on above: Order Comment: No: D o not add to previous draw Performed By: #### 1 0070, 82041, 23128, 54355, 68158, 83243 #### [facility] [address] [facility] [place] [address], [facility] MCH (RBC) [Entitic mass] 27.4 pg Normal 27.0-33.0 [facility] Comment on above: Order Comment: No: D o not add to previous draw Performed By: #### 1 0070, 14221, 67250, 13162, 31807, 81339 #### [facility] [address] MCHC (RBC) [Mass/Vol] 31.5 g/dL Low 32.0-35.0 [facility] Comment on above: Order Comment: No: D o not add to previous draw Performed By: #### 1 0070, 30073, 81103, 78745, 72183, 23529 #### [facility] [address] MCV (RBC) [Entitic vol] 87.0 fL Normal 82.0-98.0 [facility] Comment on above: Order Comment: No: D o not add to previous draw Performed By: #### 1 0070, 83299, 22321, 56069, 80921, 27211 #### [facility] [address] Monocytes (Bld) [#/Vol] 0.3 10*3/uL Normal 0.1-1.0 [facility] Comment on above: Order Comment: No: D o not add to previous draw Performed By: #### 1 0070, 25516, 56181, 59370, 83370, 27968 #### [facility] [address] MONOS 5.5 % Normal 5.0-12.0 [facility] Comment on above: Order Comment: No: D o not add to previous draw Performed By: #### 1 0070, 61487, 09940, 99477, 68979, 76775 #### [facility] [address] Neutrophils/100 WBC (Bld) 72.4 % High 40.0-72.0 [facility] Comment on above: Order Comment: No: D o not add to previous draw Performed By: #### 1 0070, 12161, 62592, 65912, 47599, 82401 #### [facility] [address] [place] [address], [facility] Nucleated RBC/100 WBC (Bld) [Ratio] 0 % Normal 0-0 [facility] Comment on above: Order Comment: No: D o not add to previous draw Performed By: #### 1 0070, 74231, 25152, 39497, 50208, 29243 #### [facility] [address] [place] [address], [facility] PLAT CNT 264 10*3/uL Normal 150-400 [facility] Comment on above: Order Comment: No: D o not add to previous draw Performed By: #### 1 0070, 16240, 63379, 59187, 37100, 19321 #### [facility] [address] [facility] [place] [address], [facility] RBC (Bld) [#/Vol] 4.93 10*6/uL Normal 3.80-5.00 [facility] Comment on above: Order Comment: No: D o not add to previous draw Performed By: #### 1 0070, 85951, 30496, 99788, 48894, 12252 #### [facility] [address] [facility] [place] [place] [address], [facility] WBC (Bld) [#/Vol] 6.17 10*3/uL Normal 4.00-10.60 [facility] Comment on above: Order Comment: No: D o not add to previous draw Performed By: #### 1 0070, 51127, 57368, 44294, 42387, 88661 #### [facility] [address] [facility] [place] [place] [address], [facility] MAGNESIUM BLOODon 04-02-2020 Magnesium [Mass/Vol] 2.0 mg/dL Normal 1.9-2.7 [facility] Comment on above: Order Comment: No: D o not add to previous draw Performed By: #### 1 0070, 30602, 93052, 20709, 56943, 54567 #### [facility] [address] [place] [address], [facility] PHOSPHORUS BLOODon 0 Phosphate [Mass/Vol] 3.1 mg/dL Normal 2.5-5.0 [facility] Comment on above: Order Comment: No: D o not add to previous draw Performed By: #### 1 0070, 97069, 75640, 43442, 96145, 22116 #### [facility] [address] [place] [address], [facility] POC GLUCOSE LABon 04-02-2020 Glucose [Mass/Vol] 134 mg/dL High 70-100 [facility] Comment on above: Performed By: #### 1 0070, 01900, 22315, 51463, 41580, 41796 #### [facility] [address] [facility] [address] UFH HEPARIN ASSAYon 04-02-20 20 UNFRACTIONATED HEPARIN 0.91 IU/mL Critically high 0.30-0.7 0 [facility] Comment on above: Result Comment: Violet roxaban and Apixaban will interfere with the anti Xa assay used to monitor UFH and LMWH. RESULTS CHECKED AND CALLED. ACCURATELY READ BACK BY LYNN POLANCO, RN @ 3130 Performed By: #### 1 0070, 76973, 80303, 65696, 36256, 29762 #### [facility] [address] [place] [address], [facility] ALBUMIN BLOODon 04-01-2020 Albumin [Mass/Vol] 3.0 g/dL Low 3.5-5.7 [facility] Comment on above: Performed By: #### 1 0070, 30446, 53221, 48035, 28241, 31341 #### [facility] [address] [place] [address], [facility] BASIC METABOLIC PANELon Calcium [Mass/Vol] 8.1 mg/dL Low 8.6-10.3 [facility] Comment on above: Order Comment: No: D o not add to previous draw Performed By: #### 1 0070, 16658, 77466, 28633, 63343, 82724 #### [facility] [address] [place] [address], [place] Chloride [Moles/Vol] 105 mmol/L Normal 98-107 [facility] Comment on above: Order Comment: No: D o not add to previous draw Performed By: #### 1 0070, 86970, 33657, 03454, 19272, 60314 #### [facility] [address] [place] [address], [place] CO2 [Moles/Vol] 26 mmol/L Normal 21-31 [facility] Comment on above: Order Comment: No: D o not add to previous draw Performed By: #### 1 0070, 11341, 19134, 93880, 17423, 95241 #### [facility] [address] [place] [address], [place] Creatinine [Mass/Vol] 0.65 mg/dL Normal 0.60-1.20 [facility] Comment on above: Order Comment: No: D o not add to previous draw Performed By: #### 1 0070, 07727, 00446, 35397, 54632, 35791 #### [facility] [address] [place] [address], [place] GFR/1.73 sq M predicted among blacks MDRD (S/P/Bld) [Vol rate/Area] mL/min/{1.73_m2} Normal >60 [facility] Comment on above: Order Comment: No: D o not add to previous draw Performed By: #### 1 0070, 06900, 34216, 54637, 94470, 14848 #### [facility] [address] [place] [address], [place] GFR/1.73 sq M predicted among non-blacks MDRD (S/P/Bld) [Vol rate/Area] mL/min/{1.73_m2} Normal >60 [facility] Comment on above: Order Comment: No: D o not add to previous draw Performed By: #### 1 0070, 99011, 96784, 56851, 54618, 41738 #### [facility] [address] [place] [address], [facility] Glucose [Mass/Vol] 87 mg/dL Normal 70-100 [facility] Comment on above: Order Comment: No: D o not add to previous draw Performed By: #### 1 0070, 24623, 90424, 00734, 20330, 31551 #### [facility] [address] [place] [address], [facility] Potassium [Moles/Vol] 4.3 mmol/L Normal 3.5-5.1 [facility] Comment on above: Order Comment: No: D o not add to previous draw Performed By: #### 1 0070, 30843, 15254, 03655, 17900, 78859 #### [facility] [address] [place] [address], [facility] Sodium [Moles/Vol] 136 mmol/L Normal 136-145 [facility] Comment on above: Order Comment: No: D o not add to previous draw Performed By: #### 1 0070, 27774, 32287, 00008, 72880, 48419 #### [facility] [address] [place] [address], [facility] Urea nitrogen [Mass/Vol] 8 mg/dL Normal 7-25 [facility] Comment on above: Order Comment: No: D o not add to previous draw Performed By: #### 1 0070, 52827, 17240, 86808, 51117, 83473 #### [facility] [address] [place] [address], [facility] CBC W/DIFFon 04-01-2020 ABS BASOPHILS 0.0 10*3/uL Normal 0.0-0.2 [facility] Comment on above: Order Comment: No: D o not add to previous draw Performed By: #### 1 0070, 25707, 14550, 64974, 31937, 72415 #### [facility] [address] [facility] [place] [place] [address], [facility] ABS IMM GRANS 0.0 10*3/uL Normal 0.0-0.2 [facility] Comment on above: Order Comment: No: D o not add to previous draw Performed By: #### 1 0070, 45160, 18680, 12614, 78203, 80683 #### [facility] [address] [place] [address], [facility] ABS NEUTROPHILS 3.4 10*3/uL Normal 1.6-7.6 [facility] Comment on above: Order Comment: No: D o not add to previous draw Performed By: #### 1 0070, 95062, 66378, 58696, 79393, 42328 #### [facility] [address] [place] [address], [facility] Basophils/100 WBC (Bld) 0.2 % Normal 0.0-1.0 [facility] Comment on above: Order Comment: No: D o not add to previous draw Performed By: #### 1 0070, 04669, 23194, 98827, 87036, 53835 #### [facility] [address] [place] [address], [facility] Eosinophils (Bld) [#/Vol] 0.1 10*3/uL Normal 0.0-0.5 [facility] Comment on above: Order Comment: No: D o not add to previous draw Performed By: #### 1 0070, 13704, 41501, 17779, 59082, 93961 #### [facility] [address] [facility] [place] [address], [facility] Eosinophils/100 WBC (Bld) 2.6 % Normal 0.0-6.0 [facility] Comment on above: Order Comment: No: D o not add to previous draw Performed By: #### 1 0070, 49800, 54244, 43612, 46904, 83153 #### [facility] [address] Erythrocyte distribution width (RBC) [Ratio] 13.0 % Normal 11.5-15.0 [facility] Comment on above: Order Comment: No: D o not add to previous draw Performed By: #### 1 0070, 28854, 47710, 51236, 91449, 00525 #### [facility] [address] Hematocrit (Bld) [Volume fraction] 40.9 % Normal 36.0-45.0 [facility] Comment on above: Order Comment: No: D o not add to previous draw Performed By: #### 1 0070, 11854, 30601, 82897, 36376, 78594 #### [facility] [address] Hemoglobin (Bld) [Mass/Vol] 12.8 g/dL Normal 12.0-15.0 [facility] Comment on above: Order Comment: No: D o not add to previous draw Performed By: #### 1 0070, 36725, 69721, 69553, 38414, 69440 #### [facility] [address] IMMATURE GRANS 0.6 % Normal 0.0-1.0 [facility] Comment on above: Order Comment: No: D o not add to previous draw Performed By: #### 1 0070, [id number], 30520, [id number], [id number], [id number] #### [facility] [address] Lymphocytes (Bld) [#/Vol] 1.2 10*3/uL Normal 1.2-4.0 [facility] Comment on above: Order Comment: No: D o not add to previous draw Performed By: #### 1 0070, 12901, 59195, 28355, 99881, 53034 #### [facility] [address] [place] [address], [facility] Lymphocytes/100 WBC (Bld) 23.7 % Normal 20.0-45.0 [facility] Comment on above: Order Comment: No: D o not add to previous draw Performed By: #### 1 0070, 79064, 68359, 09328, 97242, 68248 #### [facility] [address] [place] [address], [facility] MCH (RBC) [Entitic mass] 27.4 pg Normal 27.0-33.0 [facility] Comment on above: Order Comment: No: D o not add to previous draw Performed By: #### 1 0070, 79172, 72788, 16961, 65132, 97194 #### [facility] [address] MCHC (RBC) [Mass/Vol] 31.3 g/dL Low 32.0-35.0 [facility] Comment on above: Order Comment: No: D o not add to previous draw Performed By: #### 1 0070, 91817, 20729, 46384, 90631, 79842 #### [facility] [address] [place] [address], [facility] MCV (RBC) [Entitic vol] 87.6 fL Normal 82.0-98.0 [facility] Comment on above: Order Comment: No: D o not add to previous draw Performed By: #### 1 0070, 55327, 77261, 64595, 56517, 25077 #### [facility] [address] [place] [address], [facility] Monocytes (Bld) [#/Vol] 0.3 10*3/uL Normal 0.1-1.0 [facility] Comment on above: Order Comment: No: D o not add to previous draw Performed By: #### 1 0070, 98093, 54025, 36250, 43982, 32080 #### [facility] [address] [facility] [address], [facility] MONOS 5.4 % Normal 5.0-12.0 [facility] Comment on above: Order Comment: No: D o not add to previous draw Performed By: #### 1 0070, 57163, 17543, 88746, 03286, 77137 #### [facility] [address] [facility] [place] [place] [address], [facility] Neutrophils/100 WBC (Bld) 67.5 % Normal 40.0-72.0 [facility] Comment on above: Order Comment: No: D o not add to previous draw Performed By: #### 1 0070, 73943, 40071, 91482, 33855, 28720 #### [facility] [address] [place] [address], [facility] Nucleated RBC/100 WBC (Bld) [Ratio] 0 % Normal 0-0 [facility] Comment on above: Order Comment: No: D o not add to previous draw Performed By: #### 1 0070, 79729, 90250, 88173, 60574, 17325 #### [facility] [address] [place] [address], [facility] PLAT CNT 237 10*3/uL Normal 150-400 [facility] Comment on above: Order Comment: No: D o not add to previous draw Performed By: #### 1 0070, 81139, 35367, 15193, 62300, 95617 #### [facility] [address] [place] [address], [facility] RBC (Bld) [#/Vol] 4.67 10*6/uL Normal 3.80-5.00 [facility] Comment on above: Order Comment: No: D o not add to previous draw Performed By: #### 1 0070, 35743, 97385, 00382, 08395, 52161 #### [facility] [address] [facility] [place] [address], [facility] WBC (Bld) [#/Vol] 4.98 10*3/uL Normal 4.00-10.60 [facility] Comment on above: Order Comment: No: D o not add to previous draw Performed By: #### 1 0070, 72829, 79919, 60604, 54238, 59011 #### [facility] [address] [facility]. [place], [place] [id number] [place] [address] CHEST AND LATERALon 04-01-20 CHEST AND LATERAL [facility] Department of Radiology [address] [place] [address] Patient Name: EMIGDIO APODACA : 1965 Sex: F Age: Race: White Pt. Location: [id number] Patient Status: I Ordered Date: 04/01/2020 7:00:00 [...] reports Electronically signed: Shari Salcedo. Transcribed by: [email or web address], User Resident: ANNE VEGA Electronically Signed by: SHARI SALCEDO @ 04/01/2020 10:12 AM I personally read this/these film(s) with this resident Normal [facility] Comment on above: Order Comment: No: D o not add to previous draw MAGNESIUM BLOODon 04-01-2020 Magnesium [Mass/Vol] 2.1 mg/dL Normal 1.9-2.7 [facility] Comment on above: Order Comment: No: D o not add to previous draw Performed By: #### 1 0070, 18164, 76805, 60527, 39129, 24012 #### [facility] [address] [facility]. [address] APTTon 03-31-2020 aPTT Coag (Bld) [Time] 28.3 s Normal 25.0-35.0 Th [facility] Comment on above: Order Comment: No: D [...] THIS PURPOSE. Performed By: #### 1 0070, 35619, 80983, 61761, 14991, 06966 #### [facility] [address] [place] [address], [facility] BASIC METABOLIC PANELon 06-3 0-2019 Calcium [Mass/Vol] 7.8 mg/dL Low 8.6-10.3 [facility] Comment on above: Order Comment: No: D o not add to previous draw Performed By: #### 1 0070, 83042, 74912, 44720, 86617, 05963 #### [facility] [address] [place] [address], [facility] Chloride [Moles/Vol] 108 mmol/L High 98-107 [facility] Comment on above: Order Comment: No: D o not add to previous draw Performed By: #### 1 0070, 30943, 27088, 83839, 22592, 35387 #### [facility] [address] [place] [address], [facility] CO2 [Moles/Vol] 26 mmol/L Normal 21-31 [facility] Comment on above: Order Comment: No: D o not add to previous draw Performed By: #### 1 0070, 37955, 29728, 43838, 06460, 70082 #### [facility] [address] [place] [address], [facility] Creatinine [Mass/Vol] 0.76 mg/dL Normal 0.60-1.20 [facility] Comment on above: Order Comment: No: D o not add to previous draw Performed By: #### 1 0070, 07428, 58477, 88675, 98743, 09823 #### [facility] [address] [place] [address], [facility] GFR/1.73 sq M predicted among blacks MDRD (S/P/Bld) [Vol rate/Area] mL/min/{1.73_m2} Normal >60 [facility] Comment on above: Order Comment: No: D o not add to previous draw Performed By: #### 1 0070, 66780, 06551, 39664, 36656, 26840 #### [facility] [address] [place] [address], [facility] GFR/1.73 sq M predicted among non-blacks MDRD (S/P/Bld) [Vol rate/Area] mL/min/{1.73_m2} Normal >60 [facility] Comment on above: Order Comment: No: D o not add to previous draw Performed By: #### 1 0070, 09083, 74295, 31819, 45036, 85851 #### [facility] [address] [place] [address], [place] Glucose [Mass/Vol] 97 mg/dL Normal 70-100 [facility] Comment on above: Order Comment: No: D o not add to previous draw Performed By: #### 1 0070, 02317, 27719, 02483, 47685, 31794 #### [facility] [address] [place] [address], [place] Potassium [Moles/Vol] 3.2 mmol/L Low 3.5-5.1 [facility] Comment on above: Order Comment: No: D o not add to previous draw Performed By: #### 1 0070, 93817, 42636, 66001, 26808, 07777 #### [facility] [address] [place] [address], [place] Sodium [Moles/Vol] 140 mmol/L Normal 136-145 [facility] Comment on above: Order Comment: No: D o not add to previous draw Performed By: #### 1 0070, 92098, 96088, 41889, 35700, 68646 #### [facility] [address] [place] [address], [place] Urea nitrogen [Mass/Vol] 15 mg/dL Normal 7-25 [facility] Comment on above: Order Comment: No: D o not add to previous draw Performed By: #### 1 0070, 93214, 52369, 58848, 21430, 19652 #### [facility] [address] [place] [address], [facility] CBC W/DIFFon 03-31-2020 ABS BASOPHILS 0.0 10*3/uL Normal 0.0-0.2 [facility] Comment on above: Order Comment: No: D o not add to previous draw Performed By: #### 1 0070, 80346, 78130, 34828, 48364, 58480 #### [facility] [address] [place] [address], [facility] ABS IMM GRANS 0.0 10*3/uL Normal 0.0-0.2 [facility] Comment on above: Order Comment: No: D o not add to previous draw Performed By: #### 1 0070, 42666, 02650, 71005, 89631, 85251 #### [facility] [address] ABS NEUTROPHILS 3.2 10*3/uL Normal 1.6-7.6 [facility] Comment on above: Order Comment: No: D o not add to previous draw Performed By: #### 1 0070, 68429, 18244, 76946, 63390, 66166 #### [facility] [address] [place] [address], [facility] Basophils/100 WBC (Bld) 0.2 % Normal 0.0-1.0 [facility] Comment on above: Order Comment: No: D o not add to previous draw Performed By: #### 1 0070, 81552, 11832, 45569, 92760, 35586 #### [facility] [address] [place] [address], [facility] Eosinophils (Bld) [#/Vol] 0.0 10*3/uL Normal 0.0-0.5 [facility] Comment on above: Order Comment: No: D o not add to previous draw Performed By: #### 1 0070, 55251, 82214, 76736, 71594, 36497 #### [facility] [address] [place] [address], [facility] Eosinophils/100 WBC (Bld) 0.4 % Normal 0.0-6.0 [facility] Comment on above: Order Comment: No: D o not add to previous draw Performed By: #### 1 0070, 82087, 64217, 44405, 19441, 08929 #### [facility] [address] [facility] [address] Erythrocyte distribution width (RBC) [Ratio] 13.0 % Normal 11.5-15.0 [facility] Comment on above: Order Comment: No: D o not add to previous draw Performed By: #### 1 0070, 86342, 84696, 75305, 62583, 92053 #### [facility] [address] [facility] [address] Hematocrit (Bld) [Volume fraction] 34.4 % Low 36.0-45.0 [facility] Comment on above: Order Comment: No: D o not add to previous draw Performed By: #### 1 0070, 91690, 40619, 37439, 81180, 50042 #### [facility] [address] [facility] [place], [place] [id number] [place] [address] Hemoglobin (Bld) [Mass/Vol] 10.8 g/dL Low 12.0-15.0 [facility] Comment on above: Order Comment: No: D o not add to previous draw Performed By: #### 1 0070, 87570, 35956, 80204, 93419, 62922 #### [facility] [address] [facility] [place] [address], [facility] IMMATURE GRANS 0.4 % Normal 0.0-1.0 [facility] Comment on above: Order Comment: No: D o not add to previous draw Performed By: #### 1 0070, 10520, 25470, 92981, 15876, 16643 #### [facility] [address] [facility] [address], [facility] Lymphocytes (Bld) [#/Vol] 1.2 10*3/uL Normal 1.2-4.0 [facility] Comment on above: Order Comment: No: D o not add to previous draw Performed By: #### 1 0070, 11627, 17387, 85111, 66463, 82129 #### [facility] [address] [facility] [place] [place] [address], [facility] Lymphocytes/100 WBC (Bld) 25.7 % Normal 20.0-45.0 [facility] Comment on above: Order Comment: No: D o not add to previous draw Performed By: #### 1 0070, 96832, 40627, 75564, 00264, 76232 #### [facility] [address] [facility] [place] [place] [address], [facility] MCH (RBC) [Entitic mass] 27.5 pg Normal 27.0-33.0 [facility] Comment on above: Order Comment: No: D o not add to previous draw Performed By: #### 1 0070, 70714, 55145, 91226, 21327, 59448 #### [facility] [address] [facility] [place] [place] [address], [facility] MCHC (RBC) [Mass/Vol] 31.4 g/dL Low 32.0-35.0 [facility] Comment on above: Order Comment: No: D o not add to previous draw Performed By: #### 1 0070, 18143, 61430, 95236, 87308, 47029 #### [facility] [address] [place] [address], [facility] MCV (RBC) [Entitic vol] 87.5 fL Normal 82.0-98.0 [facility] Comment on above: Order Comment: No: D o not add to previous draw Performed By: #### 1 0070, 42810, 03284, 95688, 64960, 76291 #### [facility] [address] [place] [address], [facility] Monocytes (Bld) [#/Vol] 0.3 10*3/uL Normal 0.1-1.0 [facility] Comment on above: Order Comment: No: D o not add to previous draw Performed By: #### 1 0070, 03818, 46275, 28252, 99956, 07545 #### [facility] [address] [place] [address], [facility] MONOS 6.2 % Normal 5.0-12.0 [facility] Comment on above: Order Comment: No: D o not add to previous draw Performed By: #### 1 0070, 03815, 68045, 24835, 44303, 63116 #### [facility] [address] [place] [address], [facility] Neutrophils/100 WBC (Bld) 67.1 % Normal 40.0-72.0 [facility] Comment on above: Order Comment: No: D o not add to previous draw Performed By: #### 1 0070, 62428, 96178, 09406, 70721, 30165 #### [facility] [address] [facility] [place] [address], [facility] Nucleated RBC/100 WBC (Bld) [Ratio] 0 % Normal 0-0 [facility] Comment on above: Order Comment: No: D o not add to previous draw Performed By: #### 1 0070, 58762, 23462, 70279, 42604, 41737 #### [facility] [address] [place] [address], [facility] PLAT CNT 210 10*3/uL Normal 150-400 [facility] Comment on above: Order Comment: No: D o not add to previous draw Performed By: #### 1 0070, 44343, 12578, 62446, 84424, 08480 #### [facility] [address] [place] [address], [facility] RBC (Bld) [#/Vol] 3.93 10*6/uL Normal 3.80-5.00 [facility] Comment on above: Order Comment: No: D o not add to previous draw Performed By: #### 1 0070, 92848, 16780, 00684, 97603, 20503 #### [facility] [address] [place] [address], [facility] WBC (Bld) [#/Vol] 4.71 10*3/uL Normal 4.00-10.60 [facility] Comment on above: Order Comment: No: D o not add to previous draw Performed By: #### 1 0070, 03558, 34110, 79397, 73872, 07978 #### [facility] [address] [place], [place] [address] Cardiovascular Lab Reporton 03-31-2020 Cardiovascular Lab Report [facility] Patient Name: Paulie [facility] S MR #: [id number] Department of Physician: Rebecca Weaver M.D. Medicine Service Date: 03/31/2020 Division of Birthdate: 1965 Cardiology Room #: 3AB [id number] Adult Cardiovascular Services [place] [address] Cardiovascular Laboratory Report INDICATIONS FOR PACEMAKER PLACEMENT: [...] Weaver M.D. Date Trans: 03/31/2020 03:35 P/jamal [id number] cc: Luis Armando Hines M.D. Heart Failure/ Transplant Mailstop [address] [place] [address] Normal [facility] MAGNESIUM BLOODon 03-31-2020 Magnesium [Mass/Vol] 1.8 mg/dL Low 1.9-2.7 [facility] Comment on above: Order Comment: No: D o not add to previous draw Performed By: #### 1 0070, 92711, 29482, 79754, 32318, 29801 #### [facility] [address] PHOSPHORUS BLOODon 0 Phosphate [Mass/Vol] 2.7 mg/dL Normal 2.5-5.0 [facility] Comment on above: Order Comment: No: D o not add to previous draw Performed By: #### 1 0070, 62634, 02421, 39041, 26551, 89001 #### [facility] [address] PROTHROMBIN TIMEon 0 INR Coag (PPP) [Relative time] 1.11 {INR} Normal 0.91-1.16 [facility] Comment on above: Order Comment: No: D [...] CHEST 1995;[id number]. Performed By: #### 1 0070, 60664, 41147, 66044, 88990, 91061 #### [facility] [address] [facility] PT Coag (PPP) [Time] 14.3 s Normal 12.3-14.8 [facility] Comment on above: Order Comment: No: D o not add to previous draw Result Comment: ALL RESULTS MUST BE INTERPRETED WITH RESPECT TO BLOOD DRAWING ARTIFACT OR DILUTION ERROR OF ANTICOAGULANT AT THE TIME OF SAMPLING. Performed By: #### 1 0070, 14208, 88168, 38940, 08713, 40567 #### [facility] [address] [facility]. [address] *SARS-CoV-2 COVID-19on 03-30 [id number] Not Detected Normal Not Detected [facility] Comment on above: Order Comment: No: D o not add to previous draw Performed By: #### 1 0070, 95929, 55190, 55904, 64916, 85642 #### [facility] [address] [facility]. [address] APTTon 03-30-2020 aPTT Coag (Bld) [Time] 24.9 s Low 25.0-35.0 [facility] e [facility] Comment on above: Order Comment: No: D [...] THIS PURPOSE. Performed By: #### 5 7307, 50278 #### [facility] [address] [facility] [address] BASIC METABOLIC PANELon 03-03 Calcium [Mass/Vol] 8.9 mg/dL Normal 8.6-10.3 [facility] Comment on above: Order Comment: No: D o not add to previous draw Performed By: #### 1 0070, 72271, 60991, 28132, 81575, 09450 #### [facility] [address] [place] [address], [place] Chloride [Moles/Vol] 110 mmol/L High 98-107 [facility] Comment on above: Order Comment: No: D o not add to previous draw Performed By: #### 1 0070, 41634, 90808, 41840, 99474, 10571 #### [facility] [address] [place] [address], [place] CO2 [Moles/Vol] 26 mmol/L Normal 21-31 [facility] Comment on above: Order Comment: No: D o not add to previous draw Performed By: #### 1 0070, 56868, 23832, 08415, 51419, 88538 #### [facility] [address] [place] [address], [place] Creatinine [Mass/Vol] 0.86 mg/dL Normal 0.60-1.20 [facility] Comment on above: Order Comment: No: D o not add to previous draw Performed By: #### 1 0070, 77865, 48679, 38900, 70032, 16865 #### [facility] [address] [place] [address], [place] GFR/1.73 sq M predicted among blacks MDRD (S/P/Bld) [Vol rate/Area] mL/min/{1.73_m2} Normal >60 [facility] Comment on above: Order Comment: No: D o not add to previous draw Performed By: #### 1 0070, 80073, 11457, 08872, 94079, 41610 #### [facility] [address] [place] [address], [place] GFR/1.73 sq M predicted among non-blacks MDRD (S/P/Bld) [Vol rate/Area] mL/min/{1.73_m2} Normal >60 [facility] Comment on above: Order Comment: No: D o not add to previous draw Performed By: #### 1 0070, 02826, 79640, 29187, 51923, 17703 #### [facility] [address] [place] [address], [facility] Glucose [Mass/Vol] 119 mg/dL High 70-100 [facility] Comment on above: Order Comment: No: D o not add to previous draw Performed By: #### 1 0070, 77230, 14855, 01555, 15494, 93120 #### [facility] [address] [place] [address], [facility] Potassium [Moles/Vol] 3.5 mmol/L Normal 3.5-5.1 [facility] Comment on above: Order Comment: No: D o not add to previous draw Performed By: #### 1 0070, 50214, 10718, 32387, 99681, 62789 #### [facility] [address] [place] [address], [facility] Sodium [Moles/Vol] 142 mmol/L Normal 136-145 [facility] Comment on above: Order Comment: No: D o not add to previous draw Performed By: #### 1 0070, 95940, 52171, 29526, 80671, 60183 #### [facility] [address] [place] [address], [facility] Urea nitrogen [Mass/Vol] 13 mg/dL Normal 7-25 [facility] Comment on above: Order Comment: No: D o not add to previous draw Performed By: #### 1 0070, 35354, 23564, 71179, 24438, 93339 #### [facility] [address] [place] [address], [facility] CBC W/DIFFon 03-30-2020 ABS BASOPHILS 0.0 10*3/uL Normal 0.0-0.2 [facility] Comment on above: Performed By: #### 5 0103 #### [facility] [address] ABS IMM GRANS 0.0 10*3/uL Normal 0.0-0.2 [facility] Comment on above: Performed By: #### 5 0103 #### [facility] [address] [place] [address], [facility] ABS NEUTROPHILS 5.7 10*3/uL Normal 1.6-7.6 [facility] Comment on above: Performed By: #### 5 0103 #### [facility] [address] Basophils/100 WBC (Bld) 0.0 % Normal 0.0-1.0 [facility] Comment on above: Performed By: #### 5 0103 #### [facility] [address] Eosinophils (Bld) [#/Vol] 0.0 10*3/uL Normal 0.0-0.5 [facility] Comment on above: Performed By: #### 5 0103 #### [facility] [address] Eosinophils/100 WBC (Bld) 0.0 % Normal 0.0-6.0 [facility] Comment on above: Performed By: #### 5 0103 #### [facility] [address] Erythrocyte distribution width (RBC) [Ratio] 12.9 % Normal 11.5-15.0 [facility] Comment on above: Performed By: #### 5 3 #### [facility] [address] Hematocrit (Bld) [Volume fraction] 36.1 % Normal 36.0-45.0 [facility] Comment on above: Performed By: #### 5 3 #### [facility] [address] [facility] [address], [facility] Hemoglobin (Bld) [Mass/Vol] 11.5 g/dL Low 12.0-15.0 [facility] Comment on above: Performed By: #### 3 #### [facility] [address] [facility] [place] [address], [facility] IMMATURE GRANS 0.5 % Normal 0.0-1.0 [facility] Comment on above: Performed By: #### 3 #### [facility] [address] [place] [address], [facility] Lymphocytes (Bld) [#/Vol] 0.6 10*3/uL Low 1.2-4.0 [facility] Comment on above: Performed By: #### 5 102 #### [facility] [address] Lymphocytes/100 WBC (Bld) 9.3 % Low 20.0-45.0 [facility] Comment on above: Performed By: #### 5 3 #### [facility] [address] [place] [address], [facility] MCH (RBC) [Entitic mass] 27.4 pg Normal 27.0-33.0 [facility] Comment on above: Performed By: #### 5 3 #### [facility] [address] [facility] [place] [address], [facility] MCHC (RBC) [Mass/Vol] 31.9 g/dL Low 32.0-35.0 [facility] Comment on above: Performed By: #### 5 3 #### [facility] [address] [place] [address], [facility] MCV (RBC) [Entitic vol] 86.0 fL Normal 82.0-98.0 [facility] Comment on above: Performed By: #### 5 3 #### [facility] [address] [facility] [place] [address], [facility] Monocytes (Bld) [#/Vol] 0.2 10*3/uL Normal 0.1-1.0 [facility] Comment on above: Performed By: #### 102 #### [facility] [address] [place] [address], [facility] MONOS 2.5 % Low 5.0-12.0 [facility] Comment on above: Performed By: #### 102 #### [facility] [address] [place] [address], [facility] Neutrophils/100 WBC (Bld) 87.7 % High 40.0-72.0 [facility] Comment on above: Performed By: #### 102 #### [facility] [address] [place] [address], [facility] Nucleated RBC/100 WBC (Bld) [Ratio] 0 % Normal 0-0 [facility] Comment on above: Performed By: #### 102 #### [facility] [facility] [address] [place] [address], [facility] PLAT CNT 261 10*3/uL Normal 150-400 [facility] Comment on above: Performed By: #### 102 #### [facility] [address] [place] [address], [facility] RBC (Bld) [#/Vol] 4.20 10*6/uL Normal 3.80-5.00 [facility] Comment on above: Performed By: #### 3 #### [facility] [address] [place] [address], [facility] WBC (Bld) [#/Vol] 6.47 10*3/uL Normal 4.00-10.60 [facility] Comment on above: Performed By: #### 102 #### [facility] [address] FREE T4on 03-30-2020 Free T4 [Mass/Vol] 1.48 ng/dL Normal 0.71-1.85 [facility] Comment on above: Performed By: #### 1 0070, 99035, 39208, 35379, 74958, 00777 #### [facility] [address] [place] [address], [facility] MAGNESIUM BLOODon 03-30-2020 Magnesium [Mass/Vol] 2.0 mg/dL Normal 1.9-2.7 [facility] Comment on above: Order Comment: No: D o not add to previous draw Performed By: #### 1 0070, 90767, 71262, 41473, 56918, 09157 #### [facility] [address] [place] [address], [facility] PHOSPHORUS BLOODon 0 Phosphate [Mass/Vol] 2.8 mg/dL Normal 2.5-5.0 [facility] Comment on above: Order Comment: No: D o not add to previous draw Performed By: #### 1 0070, 71901, 12084, 69835, 73210, 94946 #### [facility] [address] PROTHROMBIN TIMEon 0 INR Coag (PPP) [Relative time] 1.21 {INR} High 0.91-1.16 [facility] Comment on above: Order Comment: No: D [...] CHEST 1995;[id number]. Performed By: #### 5 7307, [id number] #### [facility] [address] [facility] [place] [address], [facility] PT Coag (PPP) [Time] 15.4 s High 12.3-14.8 [facility] Comment on above: Order Comment: No: D o not add to previous draw Result Comment: ALL RESULTS MUST BE INTERPRETED WITH RESPECT TO BLOOD DRAWING ARTIFACT OR DILUTION ERROR OF ANTICOAGULANT AT THE TIME OF SAMPLING. Performed By: #### 5 7307, [id number] #### [facility] [address] [facility] [place] [address], [facility] TROPONIN-Ion 03-30-2020 Troponin I.cardiac [Mass/Vol] 0.02 ng/mL Normal 0.00-0.04 [facility] Comment on above: Order Comment: No: D o not add to previous draw Result Comment: REFE RENCE RANGES: 0.00 - 0.04 ng/ml NORMAL 0.05 - 0.50 ng/ml INDETERMINATE > 0.50 ng/ml CONSISTENT WITH AN M.I. Performed By: #### 1 0070, 30285, 73435, 24832, 16615, 11930 #### [facility] [address] [place] [address], [facility] Troponin I.cardiac [Mass/Vol] 0.04 ng/mL Normal 0.00-0.04 [facility] Comment on above: Order Comment: No: D o not add to previous draw Result Comment: REFE RENCE RANGES: 0.00 - 0.04 ng/ml NORMAL 0.05 - 0.50 ng/ml INDETERMINATE > 0.50 ng/ml CONSISTENT WITH AN M.I. Performed By: #### 3 5200 #### [facility] [address] [facility] [address], [facility] Troponin I.cardiac [Mass/Vol] 0.04 ng/mL Normal 0.00-0.04 [facility] Comment on above: Order Comment: No: D o not add to previous draw Result Comment: REFE RENCE RANGES: 0.00 - 0.04 ng/ml NORMAL 0.05 - 0.50 ng/ml INDETERMINATE > 0.50 ng/ml CONSISTENT WITH AN M.I. Performed By: #### 1 0070, 25825, 39110, 91026, 37229, 74012 #### [facility] [address] [facility]. [address] TSH3 WITH REFLEX FT4on 03-30 TSH 3RD GENERATION 0.02 uIU/mL Low 0.34-5.60 [facility] Comment on above: Performed By: #### 1 0070, 96240, 57449, 74693, 15933, 33262 #### [facility] [address] [facility]. [address] Vital Signs Date Time Vital Sign Value Performing Clinician Facility 05-05-2025 14:00-0400 Body height 152.4 cm Naseem Carter NP Work Phone: [facility] 05-05-2025 14:00-0400 Body mass index (BMI) [Ratio] 19.14 kg/m2 Naseem Carter [employer] Work Phone: [facility] 05-05-2025 14:00-0400 Body weight 44.45 kg Naseem Carter [employer] Work Phone: [facility] 02-17-2025 13:40-0400 Body height 152.4 cm Naseem Carter [employer] Work Phone: [facility] 02-17-2025 13:40-0400 Body mass index (BMI) [Ratio] 20.31 kg/m2 Naseem Carter NP Work Phone: [facility] 02-17-2025 13:40-0400 Body weight 47.17 kg Naseem Carter NP Work Phone: [facility] 12-04-2024 07:30-0500 Body temperature 97.8 [degF] Tony Amaya MD Work Phone: [facility] 12-04-2024 07:30-0500 Diastolic blood pressure 77 mm[Hg] Tony Amaya MD Work Phone: [facility] 12-04-2024 07:30-0500 Heart rate 88 /min Tony Amaya MD Work Phone: [facility] 12-04-2024 07:30-0500 Respiratory rate 18 /min Tony Amaya MD Work Phone: [facility] 12-04-2024 07:30-0500 SaO2% (BldA) [Mass fraction] 97 % Tony Amaya MD Work Phone: [facility] 12-04-2024 07:30-0500 Systolic blood pressure 120 mm[Hg] Tony Amaya MD Work Phone: [facility] 12-02-2024 14:18-0500 Body height 152.4 cm Tony Amaya MD Work Phone: [facility] 12-02-2024 08:53-0500 Body weight 44.62 kg Tony Amaya MD Work Phone: [facility] 06-13-2024 12:13-0400 Body height 152.3 cm Zoila Monae MD Work Phone: [facility] 06-13-2024 12:13-0400 Body mass index (BMI) [Ratio] 19.98 kg/m2 Zoila Monae MD Work Phone: [facility] 06-13-2024 12:13-0400 Body weight 46.35 kg Zoila Monae MD Work Phone: [facility] 06-13-2024 12:13-0400 Diastolic blood pressure 77 mm[Hg] Zoila Monae MD Work Phone: [facility] 06-13-2024 12:13-0400 Heart rate 74 /min Zoila Monae MD Work Phone: [facility] 06-13-2024 12:13-0400 Systolic blood pressure 107 mm[Hg] Zoila Monae MD Work Phone: [facility] 03-06-2024 13:46-0400 Body height 153.5 cm Zoila Monae MD Work Phone: [facility] 03-06-2024 13:46-0400 Body mass index (BMI) [Ratio] 19.1 kg/m2 Zoila Monae MD Work Phone: [facility] 03-06-2024 13:46-0400 Body temperature 97.2 [degF] Zoila Monae MD Work Phone: [facility] 03-06-2024 13:46-0400 Body weight 45 kg Zoila Monae MD Work Phone: [facility] 03-06-2024 13:46-0400 Diastolic blood pressure 68 mm[Hg] Zoila Monae MD Work Phone: [facility] 03-06-2024 13:46-0400 Heart rate 106 /min Zoila Monae MD Work Phone: [facility] 03-06-2024 13:46-0400 Systolic blood pressure 101 mm[Hg] Zoila Monae MD Work Phone: [facility] 08-12-2022 15:32-0500 Body temperature 98.1 [degF] MD Tony Amaya Work Phone: [facility] 08-12-2022 15:32-0500 Diastolic blood pressure 69 mm[Hg] MD Tony Amaya Work Phone: [facility] 08-12-2022 15:32-0500 Heart rate 78 /min MD Tony Amaya Work Phone: [facility] 08-12-2022 15:32-0500 Respiratory rate 16 /min MD Tony Amaya Work Phone: [facility] 08-12-2022 15:32-0500 SaO2% (BldA) [Mass fraction] 94 % MD Tony Amaya Work Phone: [facility] 08-12-2022 15:32-0500 Systolic blood pressure 129 mm[Hg] MD Tony Amaya Work Phone: [facility] 08-12-2022 11:00-0500 Inhaled oxygen flow rate 3 L/min MD Tony Amaya Work Phone: [facility] 08-11-2022 12:39-0500 Body height 152.4 cm MD Tony Amaya Work Phone: [facility] 08-11-2022 06:00-0500 Body weight 44.9 kg MD Tony Amaya Work Phone: [facility] 08-10-2022 15:03-0500 Body mass index (BMI) [Ratio] 19.1 kg/m2 MD Tony Amaya Work Phone: [facility] 08-03-2022 14:27-0400 Body weight 0 kg MD Tony Amaya Work Phone: [facility] Encounters Encounter Date Encounter Type Care Provider Facility Start: 05-21-2025 End: 05-21-2025 Refill Naseem Carter [employer] Work Phone: [facility] Comment on above: Post-op pain (Primar y Dx) Start: 05-13-2025 ambulatory Tony Amaya Facility: [facility] Start: 05-05-2025 End: 05-05-2025 Bamboo flowsheet Naseem Carter [employer] [facility] Start: 05-05-2025 End: 05-05-2025 Bamboo flowsheet Naseem Carter [employer] Work Phone: [facility] Start: 05-05-2025 End: 05-05-2025 Patient encounter procedure Naseem Carter [employer] Work Phone: [facility] Comment on above: Pre-op evaluation (P rimary Dx) Start: 05-05-2025 End: 05-05-2025 Preprocedural examination done Naseem Carter [employer] Work Phone: [facility] Work Phone: Start: 05-05-2025 End: 05-05-2025 ambulatory NASEEM CARTER Not Available Start: 03-28-2025 End: 03-28-[address] [facility] Start: 02-17-2025 End: 02-17-2025 Bamboo flowsheet Naseem Carter [employer] Work Phone: [facility] Start: 02-17-2025 End: 02-17-2025 Bamboo flowsheet Naseem Carter [employer] Work Phone: [facility] Start: 02-17-2025 End: 02-17-2025 ambulatory NASEEM CARTER Not Available Start: 02-17-2025 End: 02-17-2025 Patient encounter procedure Naseem Carter [employer] Work Phone: [facility] Comment on above: Preop examination (P rimary Dx) Start: 02-17-2025 End: 02-17-2025 Preprocedural examination done Naseem Carter [employer] Work Phone: [facility] Work Phone: Start: 02-14-2025 ambulatory [facility] Start: 02-10-2025 End: 02-14-2025 Telephone encounter Jr. Luis Armando Teague DO Work Phone: [facility] Start: 01-29-2025 ambulatory [facility] Start: 01-08-2025 End: 01-08-2025 Bamboloreto Teague DO Work Phone: [facility] Start: 01-08-2025 End: 01-08-2025 Bamboloreto Teague DO Work Phone: [facility] Start: 01-08-2025 End: 01-08-2025 ambulatory LUIS ARMANDO LINDER Not Available Start: 01-08-2025 End: 01-08-2025 Office outpatient visit 25 minutes Jr. Luis Armando Teague DO Work Phone: [facility] Comment on above: Carpal tunnel syndro me on left (Primary Dx); Pain in left hand Start: 12-10-2024 End: 12-10-2024 [facility] Start: 12-02-2024 Non-patient / Non-visit Perez Amaya MD Work Phone: [facility] Work Phone: Start: 12-01-2024 End: 12-04-2024 Evaluation and management of inpatient Tony Amaya MD Work Phone: [facility]-[address] [place] [address] Work Phone: Start: 12-01-2024 Registered Recurring Tony berry MD Work Phone: [facility]- [facility] Start: 11-29-2024 End: 11-29-2024 ambulatory DARRYL GOODE [facility] Start: 11-28-2024 End: 11-28-2024 Patient encounter procedure Monika Vargas DO Work Phone: [facility] Comment on above: Numbness and tinglin g in left hand Start: 11-28-2024 End: 11-28-2024 ambulatory MONIKA VARGAS Not Available Start: 11-26-2024 End: 11-26-2024 ambulatory Tony Amaya MD Work Phone: [facility] Work Phone: Start: 11-26-2024 End: 11-26-2024 Departed Referred Tony Amaya MD Work Phone: [facility] Start: 11-14-2024 Registered Recurring Tony berry MD Work Phone: [facility] Start: 11-11-2024 End: 11-11-2024 Bamboo flowsheet Zulema Mackay [employer] Work Phone: [facility] Start: 11-11-2024 End: 11-11-2024 Bamboo flowsheet Zulema Mackay [employer] Work Phone: [facility] Start: 11-11-2024 End: 11-11-2024 ambulatory ZULEMA MACKAY Not Available Start: 11-11-2024 End: 11-11-2024 Office outpatient visit 15 minutes Zulema Smith Simonelukas [employer] Work Phone: [facility] Comment on [...] [facility] PT Start: 11-08-2024 End: 11-08-2024 ambulatory Zerha Bunch OT Work Phone: [facility] [...] [facility] Start: 10-22-2024 End: 10-22-2024 Bamboo flowsran Bunch OT Work Phone: [facility] Start: 10-22-2024 End: 10-22-2024 ambulatory Zehra Bunch OT Work Phone: [facility] Comment on above: Finger stiffness, le ft (Primary Dx); Closed nondisplaced fracture of base of fifth metacarpal bone of left hand with routine healing, subsequent encounter Start: 10-08-2024 End: 10-08-2024 Telephone encounter Zehra Bunch OT Work Phone: [facility] Comment on above: OT Initial Eval Start: 10-07-2024 End: 10-07-2024 Bamboo flowsheet Zulema B Apling [employer] Work Phone: [facility] Start: 10-07-2024 End: 10-07-2024 Bamboo flowsheet Zulema B Apling [employer] Work Phone: [facility] Start: 10-07-2024 End: 10-07-2024 ambulatory ZULEMA B APLING Not Available Start: 10-07-2024 End: 10-07-2024 Office outpatient visit 10 minutes Zulema B Apling [employer] Work Phone: [facility] Comment on above: Closed nondisplaced fracture of base of fifth metacarpal bone of left hand with routine healing, subsequent encounter (Primary Dx); Closed nondisplaced fracture of right patella with routine healing, unspecified fracture morphology, subsequent encounter Start: 09-16-2024 End: 09-16-2024 Bamboo flowsheet Zulema B Apling [employer] Work Phone: [facility] Start: 09-16-2024 End: 09-16-2024 Bamboo flowsheet Zulema B Apling [employer] Work Phone: [facility] Start: 09-16-2024 End: 09-16-2024 Postop follow up visit related to original px Zulema B Apling [employer] Work Phone: [facility] Comment on above: Closed nondisplaced fracture of base of fifth metacarpal bone of left hand with routine healing, subsequent encounter (Primary Dx); Closed nondisplaced fracture of right patella with routine healing, unspecified fracture morphology, subsequent encounter Start: 09-16-2024 End: 09-16-2024 ambulatory ZULEMA B APLING Not Available Start: 08-19-2024 End: 08-19-2024 Bamboo flowsheet Zulema B Apling [employer] Work Phone: [facility] Start: 08-19-2024 End: 08-19-2024 Bamboo flowsheet Zulema B Apling [employer] Work Phone: [facility] Start: 08-19-2024 End: 08-19-2024 ambulatory ZULEMA B APLING Not Available Start: 08-19-2024 End: 08-19-2024 Postop follow up visit related to original px Zulema Smith Apling [employer] Work Phone: [facility] Comment on above: Right elbow pain (Pr imary Dx); Closed nondisplaced fracture of base of fifth metacarpal bone of left hand with routine healing, subsequent encounter Start: 08-07-2024 End: 08-07-2024 Bamboo ApeniMEDheet Zulema Smith Apling [employer] Work Phone: [facility] Start: 08-07-2024 End: 08-07-2024 Bamboo flowsheet Zulema Smith Apling [employer] Work Phone: [facility] Start: 08-07-2024 End: 08-07-2024 Postop follow up visit related to original px Zulema Smith Apling [employer] Work Phone: [facility] Comment on above: Closed nondisplaced fracture of right patella with routine healing, unspecified fracture morphology, subsequent encounter (Primary Dx); Right elbow pain Start: 08-07-2024 End: 08-07-2024 ambulatory ZULEMA Smith APLING Not Available Start: 07-22-2024 End: 07-22-2024 Bamboo ApeniMEDheet Zulema Smith Apling [employer] Work Phone: [facility] Start: 07-22-2024 End: 07-22-2024 Bamboo ApeniMEDheet Zulema B Apling [employer] Work Phone: [facility] Start: 07-22-2024 End: 07-22-2024 Office outpatient visit 15 minutes Zulema Smith Apling [employer] Work Phone: [facility] Comment on above: Left hand pain (Prim isamar Dx); Contusion of dorsum of left hand; Closed nondisplaced fracture of base of fifth metacarpal bone of left hand with routine healing, subsequent encounter Start: 07-22-2024 End: 07-22-2024 ambulatory ZULEMA B APLING Not Available Start: 07-10-2024 End: 07-10-2024 Bamboo flowsheet Zulema Smith Apling [employer] Work Phone: [facility] Start: 07-10-2024 End: 07-10-2024 Bamboo flowsheet Zulema Smith Apling [employer] Work Phone: [facility] Start: 07-10-2024 End: 07-10-2024 Office outpatient visit 15 minutes Zulema Smith Apling [employer] Work Phone: [facility] Comment on above: Closed nondisplaced fracture of right patella, unspecified fracture morphology, initial encounter (Primary Dx); Right knee pain, unspecified chronicity Start: 07-10-2024 End: 07-10-2024 ambulatory ZULEMA B APLING Not Available Start: 06-24-2024 End: 06-24-2024 Bamboo flowsheet Zulema Smith Apling [employer] Work Phone: [facility] Start: 06-24-2024 End: 06-24-2024 Bamboo flowsheet Zulema Smith Apling [employer] Work Phone: [facility] Start: 06-24-2024 End: 06-24-2024 Office outpatient visit 25 minutes Zulema Nicholsing [employer] Work Phone: [facility] Comment on above: Left hand pain (Prim isamar Dx); Right knee pain, unspecified chronicity; Contusion of right knee, initial encounter; Contusion of dorsum of left hand; Left shoulder pain, unspecified chronicity; Arthritis of left acromioclavicular joint; Glenohumeral arthritis, left Start: 06-24-2024 End: 06-24-2024 ambulatory ZULEMA B APLING Not Available Start: 06-13-2024 End: 06-13-2024 ambulatory ZOILA MONAE Facility:[facility] Start: 06-13-2024 End: 06-13-2024 Patient encounter procedure Zoila Monae MD Work Phone: [facility] Comment on above: Transient neurologic al symptoms (Primary Dx) Start: 06-11-2024 ambulatory ZOILA MONAE Facili ty:[facility] Start: 06-11-2024 End: 06-11-2024 Subsequent hospital visit by physician Eeg [facility] Work Phone: [facility] Comment on above: Memory deficit [R41. 3] Start: 06-04-2024 End: 06-04-2024 Orders Only Zoila Monae MD Work Phone: [facility] Comment on above: Memory deficit (Prim isamar Dx); Auditory hallucinations; Mentally challenged Start: 05-28-2024 End: 09-19-2024 Telephone encounter Zoila Monae MD Work Phone: [facility] Start: 05-28-2024 End: 05-28-2024 ambulatory ELLIOT [facility] Start: 03-06-2024 End: 03-06-2024 ambulatory TONY AMAYA Facility:[facility] Start: 03-06-2024 End: 03-06-2024 Patient encounter procedure Zoila Monae MD Work Phone: [facility] Comment on above: Memory deficit (Prim isamar Dx); Auditory hallucinations; Mentally challenged Start: 01-03-2023 End: 01-07-2023 Evaluation and management of inpatient DR TONY AMAYA . Facility:[facility] Start: 11-01-2022 End: 11-02-[address] TONY AMAYA . Facility:[facility] Start: 09-30-2022 End: 10-01-[address] ROSALINA RESENDIZ Facility:[facility] Start: 09-02-2022 End: 09-02-2022 ambulatory MD Tony Amaya Work Phone: [facility] Work Phone: Start: 09-02-2022 End: 09-02-2022 Patient encounter procedure MD Tony Amaya Work Phone: [facility] Start: 08-25-2022 End: 08-25-[address] ROSALINA RESENDIZ Facility:[facility] Start: 08-10-2022 End: 08-12-2022 Admission to same day surgery center MD [facility] Start: 08-10-2022 End: 08-12-2022 ambulatory MD Tony Amaya Work Phone: [facility] Work Phone: Start: 08-08-2022 End: 08-08-2022 ambulatory MD Tony Amaya Work Phone: [facility] Work Phone: Start: 08-08-2022 End: 08-08-2022 Departed Referred MD [facility] Start: 08-05-2022 End: 08-05-2022 ambulatory MD Tony Amaya Work Phone: [facility] Work Phone: Start: 08-05-2022 End: 08-05-2022 Patient encounter procedure MD Tony Amaya Work Phone: [facility] Start: 07-30-2022 End: 07-30-[address] ROSALINA RESENDIZ Facility:[facility] Start: 07-04-2022 End: 07-06-[address] TONY AMAYA . Facility:[facility] Start: 07-04-2022 End: 07-04-[address] ALBERTO FERRO Facility:[facility] Start: 06-29-2022 Encounter for preprocedural laboratory examination [facility] . [facility] Start: 06-27-2022 End: 06-28-2022 ambulatory [facility] . Facility:[facility] Start: 06-27-2022 End: 06-28-2022 Encounter for preprocedural laboratory examination [facility] . Facility:[facility] Start: 06-22-2022 End: 06-23-2022 ambulatory [facility] . Facility:[facility] Start: 06-20-2022 End: 06-20-2022 [...] Evaluation and management of inpatient EMMY TOLEDO Facility:[facility] Procedures Date Procedure Procedure Detail Performing Clinician Start: 11-28-2024 End: 11-28-2024 Needle emg ea extremty w/paraspinl area complete Monika Vargas DO Work Phone: Start: 11-26-2024 Urine culture Tony Amaya MD Work Phone: Start: 10-07-2024 Radex hand minimum 3 views Zulema B Switzer g [employer] Work Phone: Start: 09-16-2024 Radex hand minimum 3 views Zulema B Switzer g [employer] Work Phone: Start: 09-16-2024 Radiologic examination knee 3 views Zulema Luis Apling [employer] Work Phone: Start: 08-19-2024 Radex hand minimum 3 views Zulema B Switzer g [employer] Work Phone: Start: 08-07-2024 End: 08-07-2024 Radex elbow 2 views Zulema Luis Apling [employer] Work Phone: Start: 07-22-2024 Radex hand minimum 3 views Zulema B Switzer g [employer] Work Phone: Start: 06-24-2024 Radiologic examination knee 3 views Zulema Smith Apling [employer] Work Phone: Start: 06-11-2024 Electroencephalogram w/rec awake&drowsy Zoila Monae MD Work Phone: Start: 06-11-2024 Electroencephalogram w/rec awake&drowsy Provider [facility] Start: 09-02-2022 Plain chest X-ray MD Tony Amaya Work Phone: Start: 08-12-2022 End: 08-12-2022 Plain chest X-ray Tony Amaya Work Phone: Start: 08-11-2022 Plain chest X-ray Tony Amaya Work Phone: Start: 08-10-2022 Acid fast bacilli culture Tony Amaya Work Phone: Start: 08-10-2022 Acid fast stain method Tony Amaya Work Phone: Start: 08-10-2022 Aerobic microbial culture Tony Amaya Work Phone: Start: 08-10-2022 Anaerobic microbial culture Tony berry Work Phone: Start: 08-10-2022 Investigation of transfusion reaction Tony Amaya Work Phone: Start: 08-10-2022 Mycology culture Tony Amaya Work Phone: Start: 08-10-2022 Plain chest X-ray Tony Amaya Work Phone: Start: 08-10-2022 Opening of chest Tony Amaya Work Phone: Start: 08-05-2022 Urine culture Tony Amaya Work Phone: Start: 08-05-2022 Plain chest X-ray Tony Amaya Work Phone: Start: 03-31-2020 INSERT [...] Jesúsgabby Work Phone: Anaerobic microbial culture MD Jimenez Jesúsgabby Work Phone: Urine culture MD Tony Amaya Work Phone: Plan of Treatment Date Care Activity Detail Author Start: 2039 RSV Vaccine (1 - 1-dose 75+ series) RSV Vaccine (1 - 1-dose 75+ series) [facility] Start: 02-19-2027 Diabetes Screening Diabetes Screening [facility] Start: 06-04-2025 End: 06-04-2025 Patient encounter procedure 06/04/2025 1:00 PM EDT Office Visit [facility] [facility] [address] [place] [address] Jr. Luis Armando Teague, [address] [facility] [address] [place] [address] [facility] [place] [facility] Start: 05-05-2025 End: 05-05-2025 Patient encounter procedure 05/05/2025 2:00 PM EDT Office Visit [facility] [place] [facility] [address] [place] [phone] Naesem Carter, [employer] H[employer]IPPER [address] [place] [address] Arrived [facility] Comment on above: Arrived Start: 03-11-2025 End: 03-11-2025 Patient encounter procedure 03/11/2025 2:00 PM EDT Office Visit [facility] [address] [facility] [place] [phone] Chuy Jeter PA [address] [facility] [address] [place] [address] [facility] Start: 02-17-2025 End: 02-17-2025 Patient encounter procedure 02/17/2025 1:30 PM EDT Office Visit [facility] [address] [facility] [place] [phone] Naseem Carter, [employer] H[employer]IPPER [address] [place] [address] [facility] Start: 02-10-2025 End: 02-10-2025 Patient encounter procedure 02/10/2025 11:00 AM EDT Office Visit [facility] [address] [place] [phone] Naseem Carter NP [address] [place] [address] [facility] Start: 12-04-2024 [facility] Start: 12-01-2024 Hospital admission [facility] Start: 12-01-2024 [facility] Start: 11-26-2024 Urine culture [facility] Start: 11-26-2024 Bacteria identified in Urine by Culture Urine Culture [facility] Start: 11-11-2024 End: 11-11-2024 Patient encounter procedure 11/11/2024 10:00 AM EST Office Visit [facility] [address] [place] [address] Zulema Mackay NP [address] [place] [address] [facility] Start: 11-08-2024 End: 11-08-2024 ambulatory 11/08/2024 12:00 PM EST Treatment [facility] [address] [place] [address] Zehra Bunch, OT [address] [place] [address] [facility] Start: 11-05-2024 End: 11-05-2024 ambulatory 11/05/2024 12:00 PM EST Treatment [facility] [address] [place] [address] Zehra Bunch, OT [address] [place] [address] [facility] Start: 11-01-2024 End: 11-01-2024 ambulatory 11/01/2024 1:00 PM EST Treatment [facility] [address] [place] [address] Zehra Bunch, OT [address] [place] [address] [facility] Start: 10-29-2024 End: 10-29-2024 ambulatory [facility] Comment on above: Arrived Start: 10-25-2024 End: 10-25-2024 ambulatory 10/25/2024 9:00 AM EST Treatment [facility] [address] [place] [address] Zehra Bunch, OT [address] [place] [address] [facility] Start: 10-22-2024 End: 10-22-2024 ambulatory 10/22/2024 1:00 PM EST Evaluation [facility] [address] [place] [address] Zehra Bunch, OT [address] [place] [address] Closed nondisplaced fracture of base of fifth metacarpal bone of left hand with routine healing, subsequent encounter [facility] Comment on above: Closed nondisplaced fracture of base of fifth metacarpal bone of left hand with routine healing, subsequent encounter Start: 10-11-2024 End: 10-11-2024 ambulatory 10/11/2024 1:30 PM EST Evaluation [facility] [address] [place] [address] Florina Degroot, OT [address] [place] [address] [facility] Start: 10-07-2024 End: 10-07-2024 Patient encounter procedure 10/07/2024 11:15 AM EST Office Visit [facility] [address] [place] [address] Zulema Mackay, [employer] H[employer]IP[employer] [address] [place] [address] [facility] Start: 09-16-2024 End: 09-16-2024 Patient encounter procedure 09/16/2024 10:00 AM EST Office Visit [facility] [address] [place] [address] Zulema Mackay, [employer] H[employer]IPPER [address] [place] [address] [facility] Start: 08-19-2024 End: 08-19-2024 Patient encounter procedure 08/19/2024 12:30 PM EST Office Visit [facility] [address] [place] [address] Zulema Mackay, [employer] H[employer]IPPER [address] [place] [address] [facility] Start: 08-07-2024 End: 08-07-2024 [...] [address] [place] [address] Zulema Mackay, [employer] H[employer]IP[employer] [address] [place] [address] Arrived [facility] Comment on above: Arrived Start: 06-24-2024 End: 06-24-2024 Patient encounter procedure 06/24/2024 10:30 AM EDT Office Visit [facility] [address] [facility] [address] [place] [address] Zulema Mackay, [place] [address] [facility] [address] [place] [address] Left hand pain (Primary Dx); Right knee pain, unspecified chronicity; Contusion of right knee, initial encounter; Contusion of dorsum of left hand; Left shoulder pain, unspecified chronicity; Arthritis of left acromioclavicular joint; Glenohumeral arthritis, left [facility] Comment on above: Left hand pain (Primary Dx); Right knee pain, unspecified chronicity; Contusion of right knee, initial encounter; Contusion of dorsum of left hand; Left shoulder pain, unspecified chronicity; Arthritis of left acromioclavicular joint; Glenohumeral arthritis, left Start: 06-13-2024 End: 06-13-2024 Patient encounter procedure 06/13/2024 12:30 PM EDT Office Visit Neurology [facility] [address] [place] [address] [place] [address] [place] [address] Return in about 3 months (around 06/06/2024) for with Dr. Monae. Neurology [facility] Comment on above: Return in about 3 months (around ) for with Dr. Monae. Start: 06-11-2024 End: 06-11-2024 Patient encounter procedure 06/11/2024 9:00 AM EDT Appointment [facility] [address] [address] Memory deficit [R41.3] [facility] Comment on above: Memory deficit [R41.3] Start: 06-02-2024 Covid-19 Vaccine ( season) Covid-19 Vaccine () [facility] Start: 06-02-2024 Covid-19 Vaccine ( season) Covid-19 Vaccine () [facility] Start: 06-02-2024 Influenza vaccination [facility] Start: 03-29-2024 End: 03-29-2024 Patient encounter procedure 03/29/2024 11:45 AM EDT Office Visit Neurology [address] [place] [address] Memory deficit [R41.3] Neurology Comment on above: Memory deficit [R41.3] Start: 10-02-2023 Behavioral Health Screening Behavioral Health Screening [facility] Start: 06-02-2023 Covid-19 Vaccine () Covid-19 Vaccine () [facility] Start: 08-12-2022 [facility] Start: 08-10-2022 Consultation [facility] Start: 08-10-2022 End: 08-10-2022 [facility] Start: 2014 Pneumococcal Vaccine: 50+ (1 of 1 - PCV) Pneumococcal Vaccine: 50+ (1 of 1 - PCV) [facility] Start: 2014 Shingrix Vaccine (1 of 2) Shingrix Vaccine (1 of 2) [facility] Start: 2009 Lipid panel Lipid Screening [facility] Start: 2009 Screening for malignant neoplasm of colon [facility] Start: 2004 Screening for malignant neoplasm of breast Mammogram Screening [facility] Start: 1994 Screening for malignant neoplasm of cervix HPV Testing [facility] Start: 1985 Screening for malignant neoplasm of cervix [facility] Start: 1983 Urine microalbumin profile DTaP,Tdap,Td Vaccine (1 - Tdap) [facility] Start: 1982 Anxiety Screening Anxiety Screening [facility] Start: 1982 Depression Screening Depression Screening [facility] Start: 1982 Hepatitis C screening Hepatitis C Screening [facility] Start: 1982 HIV screening HIV Screening [facility] Acid Fast Bacilli Cu lture & Smear Acid Fast Bacilli Culture & Smear [facility] Anaerobic microbial culture Anaerobic Culture [facility] Bacteria identified in Urine by Culture Urine Culture [facility] Chlamydia trachomati s [Presence] in Unspecified specimen by Organism specific culture [facility] Work Phone: Chlamydia trachomati s [Presence] in Unspecified specimen by Organism specific culture [facility] EEG EEG NEUROLOGY 12:00 AM EDT [facility] End: 03-06-2025 EPIL EEG ROUTINE EPIL EEG ROUTINE NEUROLOGY Routine Memory deficit Auditory hallucinations 1 Occurrences starting 03/06/2024 until 03/06/2025 [facility] Work Phone: Comment on above: 1 Occurrences starting 03/06/2024 until 03/06/2025 Fungal Culture Result 1 Fungal Culture Re sult 1 [facility] Fungus identified in Unspecified specimen by Culture [facility] Work Phone: Mycobacterium sp identified in Unspecified specimen by Organism specific culture [facility] Work Phone: Mycology Culture Mycology Culture [facility] Patient Education Bipolar disord er - Discharge instructions [facility] Instructions Know your Meds [facility] Work Phone: Patient referral [facility] Work Phone: [facility] Payers Date Payer Category Payer Self-pay 2017 Medicaid [id number] 2017 Medicaid (Managed Care) [facility] MEDICAID [id number] 1964 Unknown [id number] 2.16.840.1.827223.3.579.2. 647 1964 Unknown [id number] 2.16.840.1.478610.3.579.2. 593 1964 Unknown [id number] 2.16.840.1.135065.3.579.2. 593 1964 Unknown [id number] 2.16.840.1.543448.3.579.2. 593 1964 Unknown [id number] 2.16.840.1.263116.3.579.2. 593 1964 Unknown [id number] 2.16.840.1.633071.3.579.2. 593 1964 Unknown [id number] 2.16.840.1.651777.3.579.2. 593 1964 Unknown [id number] 2.16.840.1.774458.3.579.2. 593 1964 Unknown [id number] 2.16.840.1.002028.3.579.2. 593 1964 Unknown [id number] 2.16.840.1.584129.3.579.2. 593 1964 Unknown [id number] 2.16.840.1.418021.3.579.2. 593 1964 Unknown [id number] 2.16.840.1.060022.3.579.2. 593 1964 Unknown [id number] 2.16.840.1.925217.3.579.2. 593 1964 Unknown [id number] 2.16.840.1.330749.3.579.2. 593 1964 Unknown [id number] 2.16.840.1.155536.3.579.2. 593 1964 Unknown [id number] 2.16.840.1.045886.3.579.2. 1259 1964 Unknown [id number] 2.16.840.1.715800.3.579.2. 1258 1964 Unknown [id number] 2.16.840.1.719699.3.579.2. 1258 1964 Unknown [id number] 2.16.840.1.849641.3.579.2. 1258 1964 Unknown [id number] 2.16.840.1.118648.3.579.2. 1258 1964 Unknown [id number] 2.16.840.1.866046.3.579.2. 1258 1964 Unknown [id number] 2.16.840.1.778553.3.579.2. 1258 1964 Unknown [id number] 2.16.840.1.966798.3.579.2. 1258 1964 Unknown [id number] 2.840.1.924704.3.579.2. 1258 1964 Unknown [id number] 2.840.1.773728.3.579.2. 1258 1964 Unknown [id number] 2.16.840.1.643279.3.579.2. 1258 1964 Unknown [id number] 2.16.840.1.913266.3.579.2. 1258 1964 Unknown [id number] 2.16840.1.253043.3.579.2. 1258 1964 Unknown [id number] 2.16.840.1.236103.3.579.2. 1258 1964 Unknown [id number] 2.16.840.1.314363.3.579.2. 1258 1964 Unknown [id number] 2.16.840.1.868381.3.579.2. 1258 1964 Unknown [id number] 2.16.840.1.784387.3.579.2. 1258 1964 Unknown [id number] 2.16.840.1.283643.3.579.2. 1258 1964 Unknown [id number] 2.16.840.1.873368.3.579.2. 1258 1964 Unknown [id number] 2.16.840.1.205308.3.579.2. 1258 1964 Unknown [id number] 2.16.840.1.040524.3.579.2. 1258 1964 Unknown [id number] 2.16.840.1.404771.3.579.2. 1258 1964 Unknown [id number] 2.16.840.1.674666.3.579.2. 1258 1964 Unknown [id number] 2.16840.1.679373.3.579.2. 1258 1964 Unknown [id number] 2.16.840.1.897681.3.579.2. 9 1959 Self-pay [id number] 1959 Unknown [id number] Medicaid [employer] Medicaid [id number] Unknown [id number] 2.840.1.876253.3.579.2. 531 Unknown [id number] 2.840.1.941291.3.579.2. 531 Unknown [id number] 2.840.1.803782.3.579.2. 531 Social History Date Type Detail Facility Tobacco smoking stat us MOIS Unknown if ever smoked [facility] Work Phone: Start: 1965 Sex Assigned At Female [facility] Start: 08-10-2022 End: 06-24-2024 Tobacco smoking status NHIS Never smoked tobacco (finding) [facility] Start: 03-06-2024 Tobacco smoking status MOIS Tobacco smoking consumption unknown [facility] Start: 03-06-2024 End: 05-05-2025 History of Social function [facility] Start: 03-06-2024 End: 05-05-2025 Area Deprivation Index [facility] National Score (1-10 0), lower number is lower risk 76 [facility] Start: 1965 Sex Assigned At Not on file [facility] Start: 06-24-2024 Tobacco use and exposure Smokeless tobacco non-user [facility] Start: 06-24-2024 End: 05-05-2025 Alcoholic beverage intake Ex-drinker (finding) [facility] Start: 06-21-2024 Gender identity Identifies as female gender (finding) [facility] Start: 06-21-2024 Sexual orientation Heterosexual (finding) [facility] Start: 11-28-2024 End: 12-04-2024 Sex Female (finding) [facility] Medical Equipment Procedure Code Equipment Code Equipment Origin al Text Equipment Identifier Dates Thoracotomy Surgical adhesive/sealant, human-derived [id number] FDA Start: 08-10-2022 Goals Date Patient Goal Desired Activity /State Functional Status Date Assessment Result Facility 12-04-2024 Functional status Patient at Baseline [facility] Work Phone: 08-12-2022 Functional status Patient at Baseline [facility] Work Phone: Mental Status Date Assessment Result Facility 12-04-2024 Cognitive function Cognitive Sta tus Patient at Baseline [facility] Work Phone: 08-12-2022 Cognitive function Cognitive Sta tus Patient at Baseline [facility] Work Phone: Clinical Notes 08-10-2022 to 05-21-2025 Telephone Encounter - Naseem Carter NP - 05/21/2025 4:10 PM EDTTelephone Encounter - Naseem Carter NP - 05/21/2025 4:10 PM EDTGanthony Carter NP - 05/05/2025 2:00 PM EDT Note Date & Type Note Facility 05-21-2025 Telephone encounter Note Post op pain rx. PDMP reviewed [facility] 05-21-2025 Miscellaneous Notes Post op pain rx. PDMP reviewed documented in this encounter [facility] 05-05-2025 History of Presen t illness Narrative Images from the original note were not included. GENERAL HISTORY AND PHYSICAL: NAME: Emigdio Apodaca : 1965 HISTORY OF PRESENT ILLNESS: Emigdio Apodaca is an 59 y.o. @ female. Here for surgery instructions left carpal tunnel release May 22 @ [facility]. PAST MEDICAL HISTORY: Past Medical History: Diagnosis Date Asthma (HCC) Depression GERD (gastroesophageal reflux disease) Hypotension Hypothyroid Osteoporosis Scoliosis Vertigo PAST SURGICAL HISTORY: Past Surgical History: Procedure Laterality Date CARDIAC PACEMAKER PLACEMENT 03/31/2020 CARPAL TUNNEL RELEASE Right 02/05/2018 Dr. Jorgensen SECTION, CLASSIC x 1 CHOLECYSTECTOMY laparoscopic cholecystectomy CT ANGIO HEAD 01/01/2024 CT ANGIO HEAD 01/01/2024 CT ANGIOGRAM NECK 01/01/2024 CT ANGIOGRAM NECK 01/01/2024 ORIF WRIST FRACTURE Right 09/18/2017 Dr. Jorgensen PARTIAL HYSTERECTOMY TONSILLECTOMY SOCIAL HISTORY: Social History Occupational History Not on file Tobacco Use Smoking status: Never Smokeless tobacco: Never Substance and Sexual Activity Alcohol use: Not Currently Drug use: Never Sexual activity: Not on file ALLERGIES: Allergies Allergen Reactions Codeine Other Reaction(s): Nausea Erythromycin Base Other Reaction(s): Unknown Reaction Prochlorperazine Other Reaction(s): Other: See Comments, Unknown, Unknown Reaction Promethazine Other Reaction(s): Unknown Sulfa Antibiotics Other Reaction(s): Other: See Comments, Unknown, Unknown Reaction MEDICATIONS: Current Outpatient Medications Medication Instructions albuterol [...] Daily RT ergocalciferol (Vitamin D-2) 1.25 MG (19296 UT) capsule 1 capsule escitalopram (LEXAPRO) 10 mg, Daily RT ibuprofen 400 mg, Every 6 hours PRN LaMICtal 25 MG tablet Every 24 hours lamoTRIgine (LAMICTAL) 25 mg, Daily RT lansoprazole (PREVACID) 30 mg, Daily RT levothyroxine (Synthroid) 125 MCG tablet Every 24 hours meclizine (ANTIVERT) 25 mg, 3 times daily PRN simvastatin (Zocor) 20 MG tablet REVIEW OF SYSTEMS: Review of Systems Constitutional: Negative for fatigue, fever and unexpected weight change. Eyes: Negative for redness and visual disturbance. Gastrointestinal: Negative for abdominal pain. Denies Indigestion Musculoskeletal: See note: Skin: Negative for color change and rash. Neurological: Negative for light-headedness and numbness. Vitals: Body mass index is 19.14 kg/m . PHYSICAL EXAM: Physical Exam Constitutional: General: She is not in acute distress. Appearance: Normal appearance. HENT: Head: Normocephalic and atraumatic. Right Ear: External ear normal. Left Ear: External ear normal. Nose: Nose normal. No rhinorrhea. Mouth/Throat: Mouth: Mucous membranes are moist. Pharynx: No posterior oropharyngeal erythema. Eyes: Extraocular Movements: Extraocular movements intact. Conjunctiva/sclera: Conjunctivae normal. Cardiovascular: Rate and Rhythm: Normal rate and regular rhythm. Pulses: Normal pulses. Heart sounds: No murmur heard. Pulmonary: Effort: No respiratory distress. Breath sounds: No wheezing or rhonchi. Comments: Diminished breath sounds Abdominal: Palpations: Abdomen is soft. Tenderness: There is no abdominal tenderness. Musculoskeletal: Cervical back: Normal range of motion and neck supple. Lymphadenopathy: Cervical: No cervical adenopathy. Skin: General: Skin is warm and dry. Findings: No erythema or rash. Neurological: General: No focal deficit present. Mental Status: She is alert and oriented to person, place, and time. Psychiatric: Mood and Affect: Mood normal. Behavior: Behavior normal. No orders of the defined types were placed in this encounter. ASSESSMENT: ICD-10-CM 1. Pre-op evaluation Z01.818 PLAN: This patient presents for preadmission testing for upcoming surgery. Complete history with medical, surgery, and current allergy and medication list obtained. Consent for surgery signed and witnessed after verbal consent to perform surgery received. All questions answered and proposed surgery scheduled. SURGERY INSTRUCTIONS May PRE CERT SENT Follow up in about 30 days (around 06/04/2025) for Post-Op June 04 @ 1:[address] [place] [address] Teague. documented in this encounter [facility] 03-28-2025 Note Patient here today f or a 4 month follow up. Patient states she is doing well, no cardiac complaints at this time. Patient states she will be having left hand surgery in April or May with Dr. Teague. Review of Systems Constitutional: Negative. [facility] 03-28-2025 Note SUBJECTIVE Reason for Visit: Emigdio Apodaca is a 59 y.o. year old female patient being seen for hospital follow-up. HPI: Emigdio Apodaca is a 59 y.o. year old female with significant medical history of COPD/centrilobular emphysema (denies smoking, states secondhand smoke exposure from her mother, on home oxygen as needed), bronchiectasis, heart block status post Biotronik dual-chamber PPM (placed in [address] Weaver), bipolar disorder, and depression. She underwent pacemaker implantation during a 2019 hospitalization for symptomatic bradycardia. The patient was recently admitted to [facility] (11/25-11/27) after running out of home oxygen for approximately two weeks, experiencing dizziness, shortness of breath, and oxygen desaturations below 90%. She also had a four-day history of fever, nausea, vomiting, and decreased oral intake. Workup revealed influenza A and right lower lobe pneumonia. She was treated with supplemental oxygen, Tamiflu, steroids, and antibiotics before discharge. Most recent discharge from [facility] admission date 02/20/2025 Primary diagnoses hypoxia, acute bronchitis, acute exacerbation of COPD Hospital Course: Patient was seen and evaluated in the office, increasing cough and shortness of breath, she responded well to a breathing treatment in the office, sent home with prednisone and antibiotics, she did start those in the evening but cough and shortness of breath persisted presented to emergency with significant hypoxia secondary to acute exacerbation of asthma and COPD due to acute bronchitis. Patient was given IV antibiotics, frequent aerosol treatments and IV steroids, responded well to that, she been able to wean off of her supplemental oxygen overnight, cough is much less than admission. This point she feels overall improved with the hypoxia resolved should be discharged to home in improving condition. Medications see list. Follow-up with me in the office next week. 03/28/2025 office visit: Patient is seen and examined in the office today for hospital follow-up visit. She reports doing much better since her hospitalization. Her CURRAN is stable. She can walk without any shortness of breath, however she has dyspnea on exertion with walking up stairs - reported as stable. Otherwise, she denies chest pain, palpitations, lightheadedness or dizziness, or lower extremity edema. 11/29/2024 office visit: The patient presents to [...] LVEF 60%, mildly elevated RVSP, mild TR Medical History[1] Surgical History[2] Problem List[3] family history includes Alzheimer's disease in her father. Social History[4] OBJECTIVE Visit Vitals BP 112/72 (BP Location: Right arm, Patient Position: Sitting) Pulse 82 Ht 1.524 m (5') Wt 46.3 kg (102 lb) SpO2 92% BMI 19.92 kg/m??? OB Status Hysterectomy Smoking Status Never BSA 1.4 m??? Physical Exam Constitutional: General Appearance: well-developed, appears stated age. Level of Distress: no acute distress. Neck: Jugular Veins: normal jugular venous pressure. Lungs: Auscultation: Diminished Cardiovascular: Rate And Rhythm: regular Heart Sounds: normal S1 and s2; Systolic [...] Inspection and Palpation: warm and dry. Allergies: Allergies[5] Outpatient Medications: Current Outpatient Medications Medication Instructions albuterol 90 mcg/actuation inhaler Every 4 hours buPROPion XL (Wellbutrin XL) 300 mg 24 hr tablet Every 24 hours cholecalciferol, vitamin D3, 50 mcg (2,000 unit) capsule 1 capsule, Every 24 hours citalopram (CELEXA) 20 mg, Daily (more content not included)... [facility] 02-17-2025 History of Presen t illness Narrative [...] Daily RT ergocalciferol (Vitamin D-2) 1.25 MG (20484 UT) capsule 1 capsule escitalopram (LEXAPRO) 10 [...] for requiring urgent evaluation. Naseem Carter APRN, NP-C Naseem Carter NP documented in this encounter [facility] 02-11-2025 Telephone encounter Note Patient can come to [place] 02/17 at 1:30. [facility] 02-11-2025 Miscellaneous Notes Patient can come to [place] 02/17 at 1:30. Called patient back, had to leave a voicemail. She does need to come back in for surgery instructions. She can do Monday @ 1:30 if she calls back. Patient called and left vm stating she missed her appt today because she had the flu. Please call patient at [phone]. documented in this encounter [facility] 02-11-2025 Telephone encounter Note Called patient back, had to leave a voicemail. She does need to come back in for surgery instructions. She can do Monday @ 1:30 if she calls back. [facility] 02-10-2025 Telephone encounter Note Patient called and left vm stating she missed her appt today because she had the flu. Please call patient at [phone]. [facility] 01-08-2025 History of Presen t illness Narrative [...] 09/16/24, 08/19/24, 07/22/24 IN EPIC XRAY 06/19/25 @[facility] (L) UE EMG 11/28/24 NO MRI NO [...] CONTUSION TO (L) HAND ; TAKEN TO [facility] ER - [place] WITH NORCO (R) [...] Daily RT cholecalciferol (Vitamin D-3) 50 MCG (2000 UT) capsule 1 capsule, Daily RT ciprofloxacin (CIPRO) 500 mg, Every 12 hours citalopram (CeleXA) 20 MG tablet Every 24 hours citalopram (CELEXA) 20 mg, Daily RT Claritin 10 MG tablet Every 24 hours DSS 100 mg, Daily RT ergocalciferol (Vitamin D-2) 1.25 MG (52616 UT) capsule 1 capsule escitalopram (LEXAPRO) 10 [...] is normal. 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 documented in this encounter [facility] 12-04-2024 Discharge summary Note Date/Time December 04, 2024 9:[address] [facility] [address] [place], [place] [id number] Discharge Summary Signed Patient: Emigdio Apodaca MR#: [id number] : 1965 Acct:[id number] Age/Sex: 59 / F Adm Date: 5 Loc: Room: [address] [place] [address]: Jaquan Babin MD Copies to: [...] respond. 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 She reports not eating, poor ADLs, not taking her medications and sleeping too much. She denies alcoholor illegal substance abuse. Patient denies hallucinations. Patient did report her sister completed suicide. Of note, patient reports being in [facility] Monday and Monday of last week with [...] them since Monday when she was at [facility] for the flu. She states her diarrhea has improved. She did eat some breakfast this morning but states she is a picky eater. Patient sees Jennifer Beasley, counselor in [place]. Patient was personally seen by me on the day of the encounter. I reviewed the history and performed the schrader elements of the physical examination. I formulated the plan of care and confirmed this with the medical student as ernie. 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 If at any time you are feeling an increase inyour psychiatric symptoms, call your physician or behavioral healthcare provider. If any time you have thoughts of harming yourself or others contact one of the following: Call (available 24/04) Crisis Text Line (available 24/04) text 4HOPE to [phone] [facility] Hope Line (available 8 a.m. Midnight) call [phone] ([phone]) Instructions: Know your Meds Prescriptions: Continued lamotrigine [...] Patient Comments: 3 days left Follow Up: [facility] [Outside] (established) Tony Amaya MD [Primary [...] <Electronically signed by Jaquan Babin MD> 12/04/[address] [facility] Work Phone: 1(500) 527-648903-05-[address] [address] Discharge Summary Signed Patient: Emigdio Apodaca MR#: [id number] : 1965 Acct:[id number] Age/Sex: 59 / F Adm Date: 5 Loc: Room: [address] [place] [address]: Jaquan Babin MD Copies to: [...] respond. 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 She reports not eating, poor ADLs, not taking her medications and sleeping too much. She denies alcoholor illegal substance abuse. Patient denies hallucinations. Patientdid report her sister completed suicide. Of note, patient reports being in [facility] Monday and Monday of last week with [...] them since Monday when she was at [facility] for the flu. She states herdiarrhea has improved. She did eat some breakfast this morning but states she is a picky eater. Patient sees Jennifer Beasley, counselor in [place]. Patient was personally seen by me on the day of the encounter. I reviewed the history and performedthe schrader elements of the physical examination. I formulated the plan of care and confirmed this withthe medical student as notedbeldon. 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 If at anytime you are feeling an increase inyour psychiatric symptoms, call your physician or behavioral healthcare provider. If any time you have thoughts of harming yourself or others contact one of the following: Call (available 24/04) Crisis Text Line (available 24/04) text 4HOPE to [phone] [facility] Hope Line (available 8 a.m. Midnight) call [phone] ([phone]) Instructions: Know your Meds Prescriptions: Continued lamotrigine [...] Patient Comments: 3 days left Follow Up: [facility] [Outside] (established) Tony Amaya MD [Primary Care Provider] - (Call for any medical needs) Exam Physical Exam Vital Signs: Temp Pulse Resp BP Pulse Ox O2 Del Method 98.1 F 78 16 99/66 L 96 Room Air 12/03/24 20:15 12/03/24 20:15 12/03/24 20:15 12/03/24 20:15 12/03/24 20:15 12/03/24 20:15 Documented By: Jaquan Babin MD 12/04/24 1001 Signed By: 12/04/24 1005 [facility]03-04-2025 Progress note Author Jaquan Babin [facility] Note Date/Time December 03, 2024 1:[address] [facility] [address] [place] [address] Psychiatry Progress Note Signed Patient: Emigdio Apodaca MR#: [id number] : 1965 Acct:[id number] Age/Sex: 59 / F Adm Date: 5 Loc: Room: [address] [place] [address] Type : ADM IN Attending Dr: Jaquan [...] <Electronically signed by Jaquan Babin MD> 12/03/24 [facility] Work Phone: 1(646) 543-953803-04-2025 [place] [address] Psychiatry Progress Note Signed Patient: Emigdio Apodaca MR#: [id number] : 1965 Acct:[id number] Age/Sex: 59 / F Adm Date: 5 Loc: Room: [address] [place] [address] Type : ADM IN Attending Dr: Jaquan [...] MD 12/03/24 0939 Signed By: 12/03/24 1411 [facility]03-03-2025 History and physical note Author Jaquan Babin [facility] Note Date/Time December 02, 2024 1:[address] [facility] [address] [place] [address] Psychiatry H&P Signed Patient: Emigdio Apodaca MR#: [id number] : 1965 Acct:[id number] Age/Sex: 59 / F Adm Date: 5 Loc: Room: [address] [place] [address] Type: ADM IN Attending Dr: Jaquan Babin [...] respond. 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 She reports not eating, poor ADLs, not taking her medications and sleeping too much. She denies alcoholor illegal substance abuse. Patient denies hallucinations. Patient did report her sister completed suicide. Of note, patient reports being in [facility] Monday and Monday of last week with [...] them since Monday when she was at [facility] for the flu. She states her diarrhea has improved. She did eat some breakfast this morning but states she is a picky eater. Patient sees Jennifer Beasley counselor in [place]. Patient was personally seen by me on the day of the encounter. I reviewed the history and performed the schrader elements of the physical examination. I formulated the plan of care and confirmed this with the medical student as ernie. 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 Work Phone: 1(114) 504-717503-03-2025 [place] [address] Psychiatry H&P Signed Patient: Emigdio Apodaca MR#: [id number] : 1965 Acct:[id number] Age/Sex: 59 / F Adm Date: 5 Loc: Room: [address] [place] [address] Type: ADM IN Attending Dr: Jaquan Babin [...] respond. 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 She reports not eating, poor ADLs, not taking her medications and sleeping too much. She denies alcoholor illegal substance abuse. Patient denies hallucinations. Patientdid report her sister completed suicide. Of note, patient reports being in [facility] Monday and Monday of last week with [...] them since Monday when she was at [facility] for the flu. She states her diarrhea has improved. She did eat some breakfast this morning but states she is a picky eater. Patient sees Jennifer Beasley counselor in [place]. Patient was personally seen by me on the day of the encounter. I reviewed the history and performedthe schrader elements of the physical examination. I formulated the plan of care and confirmed this withthe medical student as ernie. 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 Work Phone: 1(348) 852-210002-28-2025 NoteSUBJECTIVE Reason for Visit: Emigdio Apodaca is [...] bradycardia. The patient was recently admitted to [facility] (11/25-11/27) after running out of [...] Ventricular Rate 02/21/2024 79 (more content not included)...[facility]02-27-2025 History of Present illness Narrative* KATLIN Sal - 11/28/2024 11:00 AM EST Images from the original note were not included. Reason for Appointment: EMG Patient: Emigdio Apodaca : 1965 EMG Computer: Luristic Referring Physician: Zulema GIBSON EMG: CAITLIN classer: Tye Dominguez RT(R) Office Location: [place] Reason for EMG: c/o numbness/tingling in left hand. No hx of DM. Not on blood thinners. Comments: Procedure was explained to the patient who expressed understanding. Patient appeared to have tolerated the test well despite some discomfort due to the nature of the test. documented in this encounterMer[facility]'sZunsjftxfc60-95-2741 History of Present illness Narrative* Zulema Luis Mackay, AIR HAMMER STRIPPER - 11/11/2024 10:00 AM EST Images from [...] able to walk afterwards, was taken to [facility] ER on 06/19/24 by her partner [...] to the therapist recommending a Neurologist. [place]: XR/06/19/24/[facility] LT hand, RT knee, LT shoulder, [facility] ER 06/19/24, norco, IBU, XR NOMS 07/22/24, XRNOMS 08/19/24, XR NOMS 10/07/24, O.Debbie kimball noms RT Knee CT RT knee TB 07/05/24 [...] able to walk afterwards, was taken to [facility] ER on 06/19/24 by her partner [...] sensation in all fingers documented in this encounterMercy Hospital [facility]. John'sHkookctjjq94-99-1395 History of Present illness Narrative* Zehra Bunch OT - 11/08/2024 12:00 PM EST Occupational Therapy Occupational Therapy Treatment Visit Patient Name: Emigdio Apodaca Today's Date: 11/08/2024 Linked Episodes Type: Episode: Status: Noted: Resolved: Last update: Updated by: Occupational Therapy L 5th digit fracture Active 10/08/2024 11/08/2024 9:28 AM eZhra Bunch OT Comments:Episode created from referral [id number] Visit number: 02/06 Timed Code Treatment minutes: [...] numbness and spasms to the L hand. Funeral Assistant strength has increased to 25# and LP has remained at 5#. Encouraged stretching/ nerve glides at home. Does have a follow upwith ortho on Monday. P: Continue with POC, progress per toleration. documented in this encounterMercy Hospital St. John'sMgyygymcpw92-94-4738 History of Present illness Narrative* Zehra Bunch OT - 11/05/2024 12:00 PM EST Occupational Therapy Occupational Therapy Treatment Visit Patient Name: Emigdio Apodaca Today's Date: 11/05/2024 Linked Episodes Type: Episode: Status: Noted: Resolved: Last update: Updated by: Occupational Therapy L 5th digit fracture Active 10/08/2024 11/01/2024 12:46 PM Zehra Bunch OT Comments:Episode created from referral [id number] Visit number: 01/07 Timed Code Treatment minutes: [...] POC, progress per toleration. documented in this encounterMercy Hospital St. John'sFsalfvtwsu15-44-7746 Telephone encounter Note* Telephone Encounter - Joanna Boo - 11/01/2024 12:43 PM EST She called noting not feeling well and is cx OT for today. I reminded her, her next on 11/05. She said she'll try to be here; I told her if not feeling better to contact. [facility] [id number] Miscellaneous Notes* Telephone Encounter - Joanna Boo - 11/01/2024 12:43 PM EST She called noting not feeling well and is cx OT for today. I reminded her, her next on 11/05. She said she'll try to be here; I told her if not feeling better to contact. documented in this encounterMercy Hospital St. John'sVaqjdycpbx64-00-5109 History of Present illness Narrative* Zehra Bunch OT - 10/29/2024 1:00 PM EST Occupational Therapy Occupational Therapy Treatment Visit Patient Name: Emigdio Apodaca Today's Date: 10/29/2024 Linked Episodes Type: Episode: Status: Noted: Resolved: Last update: Updated by: Occupational Therapy L 5th digit fracture Active 10/08/2024 10/28/2024 1:49 PM Zehra Bunch OT Comments:Episode created from referral [id number] Visit number: 12/07 Timed Code Treatment minutes: [...] POC, progress per toleration. documented in this encounterMercy Hospital St. John'sCqnsjtstuq07-35-2123 History of Present illness Narrative* Zehra Bunch OT - 10/25/2024 9:00 AM EST Occupational Therapy Occupational Therapy Treatment Visit Patient Name: Emigdio Apodaca Today's Date: 10/25/2024 Linked Episodes Type: Episode: Status: Noted: Resolved: Last update: Updated by: Occupational Therapy L 5th digit fracture Active 10/08/2024 10/24/2024 11:08 AM Zehra Bunch OT Comments:Episode created from referral [id number] Visit number: 11/09 Timed Code Treatment minutes: 55 Total Treatment [...] POC, progress per toleration. documented in this encounterMercy Hospital St. John'[id number] History of Present illness Narrative* Zehra Bunch [...] Amb, Background User Comments:Episode created from referral [id number] Visit number: 1 Subjective Interim History: 59 [...] 5th digit. Strength Strength additional comments: L youth services specialist strength: 15# LP: 5# R youth services specialist strength: 30# LP: 9 Treatment: Education: HEP [...] for light strengthening and ROM at discharge. Detention Goals: PRWHE Pain Score < 10/50 ( IE: 33/50) PRWHE Functional Score < 10/100 ( IE:57/100 ) Increase L 5th digit CHAO to 100% pain free in order to complete I/ADL tasks at discharge. Pt to increase youth services specialist strength by 10# and LP by 2# [...] Please sign below. Date: documented in this encounterMercy Hospital St. John'sTswyoimmtt43-47-5917 Telephone encounter Note* Telephone Encounter - Joanna Boo - 10/08/2024 1:36 PM EST She called back and we scheduled her OT Eval for 10/11 w/ Florina Rexroad, OT. [facility] John'sRwvtpxvips97-22-5934 Miscellaneous Notes* Telephone Encounter - Joanna Boo - 10/08/2024 1:36 PM EST She called back and we scheduled her OT Eval for 10/11 w/ Florina Rexroad, OT. * Telephone Encounter - Joanna Boo - 10/08/2024 11:46 AM EST Tried to contact to set-up OT for L hand, but the voicemail is full. documented in this encounterNONevada Regional Medical CenterTqygjjbwxp39-07-8236 Telephone encounter Note* Telephone Encounter - Joanna Boo - 10/08/2024 11:46 AM EST Tried to contact to set-up OT for L hand, but the voicemail is full. [facility] John'sTtrgcznufo87-76-4100 History of Present illness Narrative* Zulema Mackay NP - 10/07/2024 11:15 AM EST Images from the original note were not included. Subjective Patient ID: Emigdio Apodaca is a 59 y.o. female. LT hand 3.5 months s/p LT hand contusion She notes a few days after getting the cast off, she smashed her hand in the car door at [facility]. Here to check ROM Pt had tripped over a sidewalk and Fell landing on her left hand and right knee. DOI 06/19/24, she then hit her chest and rolled over onto her left shoulder hitting her shoulder. She was able to walk afterwards, was taken to [facility] ER on 06/19/24 by her partner [...] XR/06/19/24/[facility] LT hand, RT knee, LT shoulder, [facility] ER 06/19/24, norco, IBU, XR NOMS 07/22/24, XRNOMS 08/19/[address] RT knee [facility] 07/05/24 Notes she started taking fosamax in 2023. States her knee is feeling better. 3.5 months Pt had tripped over a sidewalk and Fell landing on her left hand and right knee. DOI 06/19/24, she then hit her chest and rolled over onto her left shoulder hitting her shoulder. She was able to walk afterwards, was taken to [facility] ER on 06/19/24 by her partner [...] XR/06/19/24/[facility] LT hand, RT knee, LT shoulder, H [...] able to walk afterwards, was taken to [facility] ER on 06/19/24 by her partner Pt is RT handed. Hand is stiff and has been getting spasms still between 4th and 5th MC. Denies pain today. Taking TYL for multiple things. Using ice and heat. Has been moving fingers. Good ROM. Intermittent numbness, mostly in thumb. Intermittent swelling. Sometimes wakes at HS. [place]: XR/06/19/24/[facility] LT hand, RT knee, LT shoulder, [facility] ER 06/19/24, norco, IBU, XR NOMS 07/22/24, XRNOMS 08/19/24, XR NOMS 10/07/[address] RT knee TB 07/05/24 [...] able to walk afterwards, was taken to [facility] ER on 06/19/24 by her partner [...] was dx with 6 months ago. [place]: XR/06/19/24/[facility] LT hand, RT knee, LT shoulder, [facility] ER 06/19/24, norco, IBU, XR NOMS 06/24, CT TBH1, XR NOMS 08/07/24 RT elbow Pt notes she fell on 08/04/23 and hit her right elbow. layboy tender to the touch, medial elbow. TX: [...] Capillary refill: <3 sec documented in this encounterMercy Hospital St. John'[id number] History of Present illness Narrative* Zulema Mackay [...] able to walk afterwards, was taken to [facility] ER on 06/19/24 by her partner [...] today, goes to 5-6/10 with spasms. TX: XR/06/19/24/[facility] LT hand, RT knee, LT shoulder, [facility] ER 06/19/24, norco, IBU, XR NOMS [...] able to walk afterwards, was taken to [facility] ER on 06/19/24 by her partner [...] Capillary refill: <3 sec documented in this encounterMercy Hospital St. John'sNpxrhidswu10-75-4848 History of Present illness Narrative* Zulema Mackay, AIR HAMMER STRIPPER - 08/19/2024 12:30 PM EST Images from [...] able to walk afterwards, was taken to [facility] ER on 06/19/24 by her partner [...] numbness in the thumb. Denies swelling. [place]: XR/06/19/24/[facility] LT hand, RT knee, LT shoulder, H ER 06/19/24, norco, IBU, XR NOMS 07/22/24, [...] base of 5th MC fracture. Zulema Mackay SOURCING ASSOCIATE Assessment/Plan Encounter Diagnoses: ICD-10-CM 1. Right elbow [...] of the left hand documented in this encounterMercy Hospital St. John'sBeyellwpyv15-33-2063 History of Present illness Narrative* Zulema Mackay NP - 08/07/2024 11:00 AM EST Images from the original note were not included. Subjective Patient ID: Emigdio Apodaca is a 58 y.o. female. RT Knee CT RT knee [facility] 07/05/24 Notes she started taking fosamax [...] able to walk afterwards, was taken to [facility] ER on 06/19/24 by her partner [...] was dx with 6 months ago. [place]: XR/06/19/24/[facility] LT hand, RT knee, LT shoulder, [facility] ER 06/19/24, norco, IBU, XR NOMS [...] healing non displaced patella fracture Zulema Mackay SOURCING ASSOCIATE XR elbow 1 or 2 views right Imaging Result: Xrays AP and LAT of the right elbow performed on August 07, 2024 demonstrates no swelling, no fractures appreciated, joint congruent. Impression Unremarkable xrays of the right elbow Zulema Mackay SOURCING ASSOCIATE Assessment/Plan Encounter Diagnoses: ICD-10-CM 1. Closed nondisplaced [...] how she is doing. documented in this encounterMercy Hospital St. John'sVccucqlewj91-85-2656 History of Present illness Narrative* Zulema Mackay [...] able to walk afterwards, was taken to [facility] ER on 06/19/24 by her partner Pt is RT handed. MC block cast intact. Pain is between LF and RF. Pain at rest 5/10, with activities (worse at night) 8/10. She is taking motrin prn for the pain. Admits constant numbness in the thumb. Denies swelling. [place]: XR/06/19/24/[facility] LT hand, RT knee, LT shoulder, [facility] ER 06/19/24, norco, IBU, XR NOMS [...] Healing 5th MC base fracture. Zulema Mackay SOURCING ASSOCIATE Assessment/Plan Encounter Diagnoses: ICD-10-CM 1. Left hand [...] of the left hand documented in this encounterMercy Hospital St. John'sBowdanrgyx97-95-0148 History of Present illness Narrative* Zulema Mackay NP - 07/10/2024 12:15 PM EDT Images from the original note were not included. Subjective Patient ID: Emigdio paulie S Paulie is a 58 y.o. female. RT Knee CT RT knee [facility] 07/05/24 3 weeks ago, Pt had tripped over a sidewalk and Fell landing on her left hand and right knee. DOI 06/19/24, she then hit her chest and rolled over onto her left shoulder hitting her shoulder. She was able to walk afterwards, was taken to [facility] ER on 06/19/24 by her partner [...] was dx with 6 months ago. [place]: XR/06/19/24/[facility] LT hand, RT knee, LT shoulder, [facility] ER 06/19/24, norco, IBU, XR NOMS 06/24, CT TB Objective Ortho Exam Knee Musculoskeletal Exam Gait Limp: right Inspection Right Erythema: none Effusion: mild Edema: none Ecchymosis: none Deformity: none Alignment: normal Palpation Right Tenderness: present Tenderness comment: over patella Range of Motion Range of motion additional comments: Not tested due to fracture I reviewed the ct of the right knee done at [facility] on 07/05/24 reveals a non displaced [...] or polycentric), positional orthosis, rigid support, prefabricated, [id number]-fqrbo knee brace. Brace is locked at 0 [...] wbat in the brace documented in this encounterMercy Hospital St. John'sAgczytdsmk04-84-7491 History of Present illness Narrative* Zulema Mackay [...] able to walk afterwards, was taken to [facility] ER on 06/19/24 by her partner [...] xrays of the left hand done at [facility] on 06/19/24 reveals possible 5th MC fracture. I reviewed the xrays of the right knee and reveals possible patella fracture. I reviewed the xrays of the left shoulder and reveals AC and GH arthritis, no fractures noted. I reviewed [facility] ER report from 06/19/24 in addtion, [...] of the left hand documented in this encounterMercy Hospital St. John'[id number] History of Present illness Narrative* Zoila Monae MD - 06/13/2024 12:30 PM EDT [facility] Follow up/ Established patient visit Individuals who were included in, or assisted with the encounter were: Emigdio Apodaca Zoila Monae MD Chief Complaint/Issues: Emigdio Apodaca is a 58 year old female seen in the [facility] for General Neurology for: Staring [...] she can have it done in [place] but she would rather come here. She [...] CT of the brain. Electronically signed: Shari Denzel. CTA Head and/or Neck - Last 2 [...] which included preparing to see the patient, [id number] patient care, completing clinical documentation, obtaining and/or reviewing separately obtained history, performing a medically appropriate examination, counseling and educating the pat ient/family/caregiver, ordering medications, tests, or procedures, communicating with other HCPs (not separately reported), and communicating results to the patient/family/caregiver. Zoila Monae MD [facility] NoteHNO ID: [id number] Author: ZOILA MONAE MD Service: ? Author Type: Physician Type: Progress Notes Filed: 06/13/2024 13:41 Note Text: [facility] General Neurology Follow up/ Established patient visit Individuals who were included in, or assisted with the encounter were: Emigdio Apodaca Zoila Monae MD Chief Complaint/Issues: Emigdio Apodaca is a 58 year old female seen in the [facility] for General Neurology for: Staring [...] she can have it done in [place] but she would rather come here. She [...] Take 100 mg b (more content not included)...[facility]09-10-2024 NoteHNO ID: [id number] Author: NARCISA YUSUF MD Service: Neurology General Author Type: Physician Type: Procedures Filed: 06/13/2024 13:25 Note Text: [facility] - Electroencephalogram EMIGDIO APODACA : 1965 AGE: 58 SEX: F [facility]: [id number]: ATTENDING PHYSICIAN: DATE OF [...] have been noted. Narcisa Yusuf M.D. Neurology HK:[id number] Telephone encounter Note* Telephone Encounter - Zoila Monae MD - 06/04/2024 1:21 PM EDT A new neuropsych order has been put in. Thanks Zoila Monae MD [facility] Work Phone: 1(229) 225-243709-03-2024 Miscellaneous Notes* Telephone Encounter - Zoila Monae MD - 06/04/2024 1:21 PM EDT A new neuropsych order has been put in. Thanks Zoila Monae MD documented in this encounterPar[facility]-2024 NoteHNO ID: [id number] Author: ZOILA MONAE MD Service: ? Author Type: Physician Type: Progress Notes Filed: 06/04/2024 13:22 Note Text: Neuropsychology order had when they tried to get her in. A new order has been put in and good for a year. Zoila Monae [facility]09-03-2024 History of Present illness Narrative* Zoila Monae MD - 06/04/2024 1:18 PM EDT Neuropsychology order had when they tried to get her in. A new order has been put in and good for a year. Zoila Monae MD documented in this encounterPar[facility]08-27-2024 Telephone encounter Note * Telephone Encounter - Iveth Salazar - 05/28/2024 9:17 AM EDT Call center called the office on patients behalf stating they tried to schedule NEUROPSYCHOLOGICAL TESTING CONSULT But the test is booking out further than the active request. Would need it re ordered for scheduling. [facility]08-27-2024 Miscellaneous Notes* Telephone Encounter - Iveth Salazar - 05/28/2024 9:17 AM EDT Call center called the office on patients behalf stating they tried to schedule NEUROPSYCHOLOGICAL TESTING CONSULT But the test is booking out further than the active request. Would need it re ordered for scheduling. documented in this encounter[facility]06-[facility]-2024 History of Present illness Narrative* Zoila Monae MD - 03/06/2024 2:00 PM EDT Images from the original note were not included. [facility] for General Neurology New Patient Evaluation Consulting Provider: Tony Amaya [facility] [place] [address] The patient presents with a chief complaint [...] year old Rh female seen in the [facility] for General Neurology for: Cognitive [...] and no carotid or cranial bruit auscultated [place] Cognitive Assessment (MoCA) Version 1 Total Score: 17/30 Visuospatial/Executive Alternating [place] Making: Patient successfully draws the pattern without [...] fabric' (0) Word 3: Required multiple choice- '[facility], school, hospital' (0) Word 4: Required category cue- 'type of flower' (0) Word 5: Required category cue- 'a color' (0) Delayed Recall Score: 0/5 Orientation The patient was able to answer correctly: exact date, month, year, exact place (name of hospital, clinic, office). Orientation Score: 46 Education less than or equal to 12th [...] signed: Karthikeyan Linn. Outside Data/Labs: 01/2024 at [facility]: Tox screen negative, Etoh negative, CBC is normal, CMP is normal, Folate 34, B12 148, TSH 0.01 IMPRESSION: Unremarkable intracranial CT angiogram. Unremarkable unenhanced CT of the brain. Unremarkable extracranial CT angiogram Subjective Patient-Entered Data: 03/04/24 - GENERAL NEUROLOGY SCORES I spent a total of 55 minutes on the date of the service which included preparing to see the patient, [id number] patient care, completing clinical documentation, obtaining and/or reviewing separately obtained history, performing a medically appropriate examination, counseling and educating the pat ient/family/caregiver, ordering medications, tests, or procedures, communicating with other HCPs (not separately reported), and communicating results to the patient/family/caregiver. Zoila Monae MD documented in this encounterPar[facility]06-05-2024 NoteHNO ID: [id number] Author: ZOILA MONAE MD Service: ? Author Type: Physician Type: Progress Notes Filed: 03/06/2024 15:39 Note Text: [facility] for General Neurology New Patient Evaluation Consulting Provider: Tony Amaya [address] [facility] [address] The patient presents with a chief complaint [...] year old Rh female seen in the [facility] for General Neurology for: Cognitive [...] for low IQ. She worked in a [employer] shop and only worked 6 months. She [...] and no carotid or cranial bruit auscultated [place] Cognitive Assessment (MoCA) Version 1 Total Score: 17/30 Visuospatial/Executive Alternating [place] Making: Patient successfully draws the (more content not included)...[facility]11-11-2022 History and physical note Author Rodolfo Harley [facility] August 12, 2022 1:45pm Note Date/Time August 04, 2022 3 :52pm [facility] [address] [place] [address] Cardiothoracic Surgery H&P Signed Patient: Emigdio Apodaca MR#: [id number] : 1965 Acct:[id number] Age/Sex: 56 / F Adm Date: 2 Loc: [place] Room: Type: PRE [facility] Attending Dr: Rodolfo Harley MD Copies to: [...] IgG IgM and IgA were all negative. Anti-[place]-3 antibodies were 5.0. ?P ANCA was 1:80. 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 We will give 100 mg of IV Solu-Cortef on-call to the OR. We will utilize vancomycin and Levaquin given the questionable history of penicillin allergy with hives as a baby, although she states she recently had penicillin without issues. Documented By: Rodolfo Harley MD 08/04/22 1223 Signed By: <Electronically signed by MD Rodolfo Harley> 08/12/22 2836 [facility] Work Phone: 1(416) 919-784711-11-2022 Hospital Discharge instructionsAmbulatory Orders* Initiate Home Health Time Frame: 08/12/22, Location: Determined By Patient Additional Instructions no lifting 5-10 lbs. Continue Peridex mouthwash. May remove dressing tomorrow. Daily showers with Betasept wash. No driving.[facility] Work Phone: 1(409) 105-920311-11-2022 Progress note Author Monika Meza [facility] August 12, 2022 11:59am Note Date/Time August 12, 2022 8:13am [facility] [address] [place] [address] Pulmonology Progress Note Signed Patient: Emigdio Apodaca MR#: [id number] : 1965 Acct:[id number] Age/Sex: 56 / F Adm Date: 2 Loc: Room: [address] [place] [address] Type: REG SDC Attending Dr: Rodolfo Hraley MD Copies to: ~ Date of Service: [...] <Electronically signed by MD Monika Meza> 08/12/22 1158 [facility] Work Phone: 1(262) 603-506911-10-2022 Progress note Author Monika Meza [facility] August 11, 2022 10:07am Note Date/Time August 11, 2022 7:43am [facility] [address] [place] [address] Pulmonology Progress Note Signed Patient: Emigdio Apodaca MR#: [id number] : 1965 Acct:[id number] Age/Sex: 56 / F Adm Date: 2 Loc: Room: [address] [place] [address] Type: [facility] Attending Dr: Rodolfo Harley MD Copies to: [...] otherwise. Documented By: Monika Meza MD 2 [id number] Signed By: <Electronically signed by MD Monika Meza> 08/11/22 1007 [facility] Work Phone: 1(969) 337-494111-09-2022 Consult note Author Monika Meza [facility] August 10, 2022 5:46pm Note Date/Time August 10, 2022 5 :41pm [facility] [address] [place] [address] Pulmonology Consult Note Signed Patient: Emigdio Apodaca MR#: [id number] : 1965 Acct:[id number] Age/Sex: 56 / F Adm Date: 2 Loc: Room: [address] [place] [address] Type: REG SDC Attending Dr: Rodolfo Harley [...] been followed by Dr. Nadege Gardner at [place] with complaints of dyspnea on exertion [...] able. Documented By: Monika Meza MD 2 [id number] Signed By: <Electronically signed by MD Monika Meza> 08/10/22 3058 [facility] Work Phone: Evaluation noteNo assessment information available [facility] Work Phone: evaluation note* Diagnosis Onset Date Resolution Status Bipolar 1 disorder acute Bronchiectasis acute Hypercholesteremia acute Hypothyroidism acute Interstitial lung disease ac [facility] Work Phone: evaluation note* Diagnosis Onset Date Resolution Status Bipolar 1 disorder acute Hypercholesteremia acute Hypothyroidism acute Interstitial lung disease [facility] Bipolar 1 disorder acute Bronchiectasis acute Hypercholesteremia acute Hypothyroidism acute Interstitial lung disease ac [facility] Work Phone: evaluation note* Diagnosis Memory deficit- Primary Memory loss Auditory hallucinations Hallucinations Mentally challenged Unspecified intellectual disabilities [facility] Memory deficit- Primary Memory loss Auditory hallucinations Hallucinations Mentally challenged Unspecified intellectual disabilities [facility] Diagnosis Memory deficit Memory loss Auditory hallucinations Hallucinations [facility] Diagnosis Transient neurological symptoms- Primary [facility] Diagnosis Closed nondisplaced fracture of right patella, unspecified fracture morphology, initial encounter- Primary Right knee pain, unspecified chronicity [facility] Diagnosis Left hand pain- Primary [...] joint, upper arm [facility] Diagnosis Left hand pain- Primary [...] [facility] Diagnosis Carpal tunnel syndrome on left- Primary Carpal tunnel syndrome Pain in left hand [facility] Diagnosis Preop examination- Primary Unspecified pre-operative examination [facility] Diagnosis Pre-op evaluation- Primary [facility] Diagnosis Post-op pain- Primary Other acute postoperative pain [facility] Outpatient Procedure (Routine) - Authorized Specialty Diagnoses / Procedures Referred By Chris t Referred To Contact [facility] Diagnoses Memory deficit Auditory hallucinations Procedures EPIL EEG ROUTINE ELECTROENCEPHALOGRAM REC COMA/[place] [address] [address] [place] [id number] [address] [address] Referral ID Status Reason Start Date Expiration Date Visits Requested Visits Authorized [id number] Authorized Auto-Generat ed Referral 03/06/2024 03/06/2025 1 [...] EA ADDL 30 [place] [address] [place] [id number] Referral ID Status Reason Start Date Expiration Date Visits Requested Visits Authorized [id number] Ref Not Required PCP Requested Referral 03/06/2024 06/04/2024 1 3 [facility] for referral (narrative)* Outpatient Procedure (Routine) - Closed Specialty Diagnoses / Procedures Referred By Contac t Referred To Contact [facility] [place] Diagnoses Memory deficit Auditory hallucinations Procedures EPIL EEG ROUTINE ELECTROENCEPHALOGRAM REC COMA/[place] [address] [place] [address] [address] Referral ID Status Reason Start Date Expiration Date V isits Requested Visits Authorized [id number] Closed Auto-Generate d Referral 03/06/2024 03/06/2025 1 1 [facility] for visit Narrative* Outpatient Procedure (Routine) - Closed Specialty Diagnoses / Procedures Referred By Chris cadena Referred To Contact [facility] Diagnoses Memory deficit Auditory hallucinations Procedures EPIL EEG ROUTINE ELECTROENCEPHALOGRAM REC COMA/[place] [address] [place] [address] Neurological [place] [address] [place] [address] Referral ID Status Reason Start Date Expiration Date V isits Requested Visits Authorized [id number] Closed Auto-Generate d Referral 03/06/2024 03/06/2025 1 1 [facility] for visit Narrative* Consultation (Routine) - Authorized Specialty Diagnoses / Procedures Referred By Chris cadena Referred To Contact Occupational Therapy / Physical Therapy Diagnoses Closed nondisplaced fracture of base of fifth metacarpal bone of left hand with routine healing, subsequent encounter Procedures [place] OFFICE/OUTPATIENT NEW HIGH MDM 60 MINUTES Zulema Mackay NP [address] [facility] [address] [place] [address] Phone: tel: fax: Zehra Bunch, OT [address] [place] [address] Phone: tel:[phone] fax:[phone] Referral ID Status Reason Start Date Expiration Date Visits Requested Visits Authorized [id number] Authorized Consult and Treat 10/07/2024 04/05/2025 8 8 [facility] for visit Narrative* Consultation (Routine) - Authorized Specialty Diagnoses / Procedures Referred By Chris cadena Referred To Contact Occupational Therapy / Physical Therapy Diagnoses Closed nondisplaced fracture of base of fifth metacarpal bone of left hand with routine healing, subsequent encounter Procedures [place] OFFICE/OUTPATIENT NEW HIGH MDM 60 MINUTES Zulema Mackay NP [address] [facility] [address] [place] [address] Phone: tel: fax: Zehra Bunch, OT [address] [place] [address] Phone: tel:[phone] fax:[phone] Referral ID Status Reason Start Date Expiration Date Visits Requested Visits Authorized [id number] Authorized Consult and Treat 10/07/2024 10/01/2025 8 8 [facility] Narrative* Consultation (Routine) - Closed Specialty Diagnoses / Procedures Referred By Chris t Referred To Contact Neurology Diagnoses Numbness and tingling in left hand Procedures [place] OFFICE/OUTPATIENT NEW HIGH MDM 60 MINUTES Zulema Mackay NP fax: Monika Vargas DO [address] [place] [address] Phone: tel: fax: Referral ID Status Reason Start Date Expiration Date V isits Requested Visits Authorized [id number] Closed Specialty Services Required 11/11/2024 05/10/2025 1 1 [facility] Summary Purpose Family History No Family History Records FoundNo Family History Records FoundNo Family History Records FoundNo Family History Records FoundNo Family History Records FoundNo Family History Records FoundNo Family History Records Found Advance Directives Advance Directive Response Recorded Date/ Time Advance Directives No August 05, 2022 8:18am Advance Directive Response Recorded Date/ Time Advance Directives No August 05, 2022 9:18am Hospital Course Note MR#: [id number] [facility] Pt. Name: Emigdio Apodaca Admitted: [...] EA ADDL 30 [place] [address] [place] [address] Referral ID Status Reason Start Date Expiration Date Visits Requested Visits Authorized [id number] Ref Not Required PCP Requested Referral 06/04/2024 09/02/2024 1 3 Additional Source Comments INFORMATION SOURCE (unrecogn ized section and content) DATE CREATED AUTHOR 04/23/2020 [facility] DATE CREATED AUTHOR AUTHOR'S ORGANIZ ATION 01/07/2023 [facility] DATE CREATED AUTHOR AUTHOR'S ORGANIZ ATION 06/15/2024 [facility] DATE CREATED AUTHOR AUTHOR'S ORGANIZ ATION 09/22/[address] [facility] DATE CREATED AUTHOR AUTHOR'S ORGANIZ ATION 05/07/2025 [facility] DATE CREATED AUTHOR AUTHOR'S ORGANIZ ATION 05/14/2025 [facility] DATE CREATED AUTHOR AUTHOR'S ORGANIZ ATION 05/15/2025 [facility] Care Teams (unrecognized sec tion and [...] Active Rodolfo Harley MD Attending Provider Active Endoscopy Support Specialist Relationship Specialty Start Date End Date Tony Amaya MD [address] [place] [address] Referring Family Medicine 02/09/24 Endoscopy Support Specialist Relationship Specialty Start Date End Date Tony Amaya MD [address] [place] [address] Referring Family Medicine 02/09/24 Endoscopy Support Specialist Relationship Specialty Start Date End Date Tony Amaya MD [address] [place] [address] Referring Family Medicine 02/09/24 Endoscopy Support Specialist Relationship Specialty Start Date End Date Tony Amaya MD [address] [place] [address] Referring Family Medicine 02/09/24 Endoscopy Support Specialist Relationship Specialty Start Date End Date Tony Amaya MD [address] [facility] [place] [address] PCP - General Family Medicine 06/13/24 Tony Amaya MD [address] [facility] [place] [address] Referring Family Medicine 02/09/24 Endoscopy Support Specialist Relationship Specialty Start Date End Date Tony Amaya MD [address] [place] [facility] [place] [address] PCP - General Family Medicine 06/24/24 Endoscopy Support Specialist Relationship Specialty Start Date End Date Tony Amaya MD [address] [place] [facility] [place] [address] PCP - General Family Medicine 06/24/24 Endoscopy Support Specialist Relationship Specialty Start Date End Date Tony Amaya MD [address] [place] [facility] [place] [address] PCP - General Family Medicine 06/24/24 Endoscopy Support Specialist Relationship Specialty Start Date End Date Tony Amaya MD [address] [place] [facility] [place] [address] PCP - General Family Medicine 06/24/24 Endoscopy Support Specialist Relationship Specialty Start Date End Date Tony Amaya MD [address] [place] [facility] [place] [address] PCP - General Family Medicine 06/24/24 Endoscopy Support Specialist Relationship Specialty Start Date End Date Tony Amaya MD [address] [place] [facility] [place] [address] PCP - General Family Medicine 06/24/24 Endoscopy Support Specialist Relationship Specialty Start Date End Date Tony Amaya MD [address] [place] [facility] [place] [address] PCP - General Family Medicine 06/24/24 Endoscopy Support Specialist Relationship Specialty Start Date End Date Tony Amaya MD [address] [place] [facility] [place] [address] PCP - General Family Medicine 06/24/24 Endoscopy Support Specialist Relationship Specialty Start Date End Date Tony Amaya MD [address] [place] [facility] [place] [address] PCP - General Family Medicine 06/24/24 Endoscopy Support Specialist Relationship Specialty Start Date End Date Tony Amaya MD [address] [facility] [place] [address] PCP - General Family Medicine 06/13/24 Tony Amaya MD [address] [facility] [place] [address] Referring Family Medicine 02/09/24 Endoscopy Support Specialist Relationship Specialty Start Date End Date Tony Amaya MD [address] [place] [facility] [place] [address] PCP - General Family Medicine 06/24/24 Endoscopy Support Specialist Relationship Specialty Start Date End Date Tony Amaya MD [address] [place] [facility] [place] [address] PCP - General Family Medicine 06/24/24 Endoscopy Support Specialist Relationship Specialty Start Date End Date Tony Amaya MD [address] [place] [facility] [place] [address] PCP - General Family Medicine 06/24/24 Endoscopy Support Specialist Relationship Specialty Start Date End Date Tony Amaya MD [address] [place] [facility] [place] [address] PCP - General Family Medicine 06/24/24 Endoscopy Support Specialist Relationship Specialty Start Date End Date Tnoy Amaya MD [address] [place] [facility] [place] [address] PCP - General Family Medicine 06/24/24 Endoscopy Support Specialist Relationship Specialty Start Date End Date Tony Amaya MD [address] [facility], [facility] PCP - General Family Medicine 06/24/24 Endoscopy Support Specialist Relationship Specialty Start Date End Date Tony Amaya MD [address] [facility], [facility] PCP - General Family Medicine 06/24/24 Endoscopy Support Specialist Relationship Specialty Start Date End Date Tony Amaya MD [address] [facility], [facility] PCP - General Family Medicine 06/24/24 Endoscopy Support Specialist Relationship Specialty Start Date End Date Tony Amaya MD [address] [place] [facility] [place] [address] PCP - General Family Medicine 06/24/24 Endoscopy Support Specialist Relationship Specialty Start Date End Date Tony Amaya MD [address] [place] [facility] [place] [address] PCP - General Family Medicine 06/24/24 Endoscopy Support Specialist Relationship Specialty Start Date End Date Tony Amaya MD [address] [place] [address] PCP - General Family Medicine 06/24/24 Team Status: Active Member Role Status Chucho Amaya MD Primary Care Provider Active Start: November 14, 2024 Alejandro Maciel MD Attending Provider Active Start: November 14, 2024 Team Status: Inactive Member Role Status Chucho Amaya MD Attending Provider Active Sta rt: November 26, 2024 End: November 26, 2024 Endoscopy Support Specialist Relationship Specialty Start Date End Date Tony Amaya MD [address] [place] [address] PCP - General Family Medicine 06/24/24 Team Status: Active Member Role Status Chucho Amaya MD Primary Care Provider Active Start: December 01, 2024 Alejandro Maciel MD Attending Provider Active Start: December 01, 2024 Team Status: Inactive Member Role Status Chucho Amaya MD Primary Care Provider Active Start: December 01, 2024 End: December 04, 2024 Jaquan Babin MD Admit Provider, Atte nding Provider Active Start: December 01, 2024 End: December 04, 2024 Team Status: Active Member Role Status Chucho Amaya MD Primary Care Provider Active Start: December 02, 2024 Jaquan Babin MD Admit Provider, Atte nding Provider, Other Provider Active Start: December 02, 2024 Endoscopy Support Specialist Relationship Specialty Start Date End Date Tony Amaya MD PCP - General Family Medicine 06/24/24 Endoscopy Support Specialist Relationship Specialty Start Date End Date Tony Amaya MD PCP - General Family Medicine 06/24/24 Endoscopy Support Specialist Relationship Specialty Start Date End Date Tony Amaya MD PCP - General Family Medicine 06/24/24 Endoscopy Support Specialist Relationship Specialty Start Date End Date Tony Amaya MD [address] [place] [address] PCP - General Family Medicine 05/02/25 Endoscopy Support Specialist Relationship Specialty Start Date End Date Tony Amaya MD [address] [place], [place] [address] PCP - General Family [facility] 05/02/25 Goals (unrecognized section and content) Goals may [...] or prosecute any alcohol or drug abuse patient.[facility] Hospital[facility] the event this information is protected by the Federal Confidentiality of Alcohol and Drug Abuse Patient Records regulations: The Federal rules restrict any use of the information to criminally investigate or prosecute any alcohol or drug abuse patient.[facility] Hospital[facility] the event this information is protected by the Federal Confidentiality of Alcohol and Drug Abuse Patient Records regulations: The Federal rules restrict any use of the information to criminally investigate or prosecute any alcohol or drug abuse patient.[facility] Hospital[facility] the event this information is protected by the Federal Confidentiality of Alcohol and Drug Abuse Patient Records regulations: The Federal rules restrict any use of the information to criminally investigate or prosecute any alcohol or drug abuse patient.[facility] Hospital[facility] the event this information is protected by the Federal Confidentiality of Alcohol and Drug Abuse Patient Records regulations: The Federal rules restrict any use of the information to criminally investigate or prosecute any alcohol or drug abuse patient.[facility] Hospital[facility] the event this information is protected by the Federal Confidentiality of Alcohol and Drug Abuse Patient Records regulations: The Federal rules restrict any use of the information to criminally investigate or prosecute any alcohol or drug abuse patient.[facility] Reason for Visit (unrecogniz ed section and content) Reason Comments Dementia cognitive Reason Comments Follow Up Reason Comments Pain Reason Comments Fracture Reason Comments Follow-up Reason Onset Date Comments OT Initial Eval 10/08/2024 Reason Comments Follow-up Reason Onset Date Comments CX OT today 11/01/2024 Reason Comments Pre-op Exam Reason Comments Pre-op Visit FOR RECORDS PERTAINING TO PATIENTS WHO ARE [...] BE BASED ON THE PRIMARY CLINICAL RECORDS. [facility]. provides no warranty or guarantee of the accuracy or completeness of information in this document.
--- OUTSIDE RECORDS SUMMARY | 2025-05-29 22:09 | XMS_ITS | Encounter Summary ---
Author Organization [facility] Address [address] [place] [address] Care Team Providers Care Industrial Property Appraiser Name Role Phone Paulo Turner MD Unavailable [phone] Paulo Turner MD Primary Care Provider [phone] Source Comments In the event this information is protected by the Federal Confidentiality of Alcohol and Drug AbusePatient Records regulations: The Federal rules restrict any use of the information to criminally investigate or prosecute any alcohol or drug abuse patient.[facility] Encounter Details Date Type Department Care Team (Late st Contact Info) Description 08/16/2022 Lab Requisition [facility] [address] [place] [address] Ruddy Hsu MD Person encountering health services [...] EST) Case Report Surgical Pathology Report Case: [id number] Authorizing Provider: Ruddy Hsu Collected: 08/16/2022 04:33 PM Ordering Location: [facility] Main Received: 08/16/2022 04:32 PM Pathologist: Kareem Pimentel MD Specimen: SLIDE(S)/BLOCK(S), 6 SLIDES ([id number]) & 4 BLOCKS (A1,A2,B1,B2) 08/16/2022 5:13 PM EST [facility] FINAL DIAGNOSIS Lung, right lower lobe lateral and right upper lobe anterior medial, surgical biopsies ([id number]; 08/10/22): - 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 08/16/2022 5:13 PM EST [facility] at 1713 EST Diagnosis Comment This [...] pneumonitis (Arch Pathol Lab Med 2010; PMID [id number]). The patient should be questioned thoroughly for [...] or concerns, I can be reached at [phone]. 08/16/2022 5:13 PM EST [facility] Clinical History This 56-year-old woman has [...] and interstitial fibrosis. 08/16/2022 5:13 PM EST [facility] Performing Lab Diagnostic interpretation performed at [facility], [address] [place] [address] CLIA# [id number] Dairy Bar Manager: Toñito Victoria M.D. 08/16/2022 5:13 PM EST [facility] Blocks or Slides PARAFFIN EMBEDDED TISSUE BLOCK SPECIMEN / Unknown 08/16/2022 4:33 PM EST 08/16/2022 4:32 PM EST us Ruddy Hsu MD SURGICAL PATHOLOGY Final Re sult [facility] [address] [place] [address] [place] [address], documented in this encounter Visit Diagnoses Diagnosis Person encountering health services to consult on behalf of another person Other person consulting on behalf of another person documented in this encounter Care Teams Industrial Property Appraiser Relationship Specialty Start Date End Date Paulo Turner MD [address] [id number] PCP - General Family Medicine 06/13/24 Paulo Turner MD [address] [place] [address] Referring Family Medicine 02/09/24 documented as of this encounter
--- OUTSIDE RECORDS SUMMARY | 2025-05-29 22:09 | XMS_ITS | Clinical Summary ---
Author Organization [facility] Address [address] [place] [address] Care Team Providers Care Operating Room Rn Name Role Phone Paulo Turner MD Primary Care Provider [phone] Allergies Active Allergy Reactions Criticality Noted Date Comments Codeine 08/10/2022 Other Reaction(s): Nausea Erythromycin Base 08/05/2022 Other Reaction(s): Unknown Reaction Prochlorperazine 10/10/2014 Other Reaction(s): Other: See Comments, Unknown, Unknown Reaction Promethazine 06/24/2024 Other Reaction(s): Unknown Sulfa Antibiotics 10/10/2014 Other Reaction(s): Other: See Comments, Unknown, Unknown Reaction Medications simvastatin (Zocor) 20 MG tablet Active Claritin 10 MG tablet 1 (one) [...] morning. Active ergocalciferol (Vitamin D-2) 1.25 MG (99030 UT) capsule 1 capsule Active Docusate Sodium [...] a day as needed for dizziness Active HYDROcodone-enrike taminophen (Artesia) 5-325 MG tabletIndicatio ns:Post-op pain Take 1 tablet by mouth every 6 (six) hours if needed for severe pain for up to 3 days 12 tablet 5 05/24/20 Active Problems Problem Noted Date Diagnosed Date Osteoporosis 02/03/2025 Carpal tunnel syndrome, right 02/03/2025 Carpal tunnel syndrome, left 02/03/2025 COPD (chronic obstructive pulmonary disease) 01/2025 Distal paresthesia 02/03/2025 Hyperlipidemia 02/03/2025 Pacemaker 02/03/2025 Vitamin D deficiency 02/03/2025 Finger stiffness, left 10/22/2024 Transient neurological symptoms 06/13/2024 Unspecified severe protein-calorie malnutrition ([facility]) 01/04/2024 CURRAN (dyspnea on exertion) 05/03/2023 Dyspepsia 10/13/2014 Encounters Date Type Department Care Team Description 05/22/2025 Telephone [facility] [address] [place] [address] Ana Laura Oliveira MA Surgery Cancellation 05/21/2025 Refill [facility] [address] [place] [address] García Rosales, PERSONALIZED LIVING MANAGER NURSE Post-op pain (Primary Dx) 05/05/2025 2:00 PM EDT Office Visit [facility] [address] [place] [address] García Rosales NP Pre-op evaluation (Primary Dx) 05/05/2025 Bamboo flowsheet [facility] [address] [place] [address] García Rosales NP 05/05/2025 Travel from Last 3 Months Family History Medical [...] - Inhaled Oxygen Concentration - - Weight 44.5 kg (98 lb) 05/05/2025 2:00 PM EDT Height 152.4 cm (5') 05/05/2025 2:00 PM EDT Body Mass Index 19.14 05/05/2025 2:00 PM EDT Plan of Treatment Upcoming Encounters Date Type Department Care Team (Late st Contact Info) Description 06/04/2025 1:00 PM EDT Office Visit [facility] [address] [place] [address] Jr. Tony Teague, DO [address] [place] [address] Insurance [employer] Care Teams Operating Room Rn Relationship Specialty Start Date End Date Paulo Turner MD [address] [place] [address] PCP - General Family Medicine 05/02/25
[2025-05-29 22:16] VITALS: BP 126/73; PULSE 79; TEMP 36.6; O2SAT 95; BMI 19.9
[2025-05-29 23:30] VITALS: BP 134/80
--- NOTE | 2025-05-29 23:33 | ED.WOUNDLAC1 ---
HPI - Wound/Laceration General Chief Complaint: Wound/Laceration Stated Complaint: CUT L RING FINGER Time Seen by Provider: 05/29/25 22:24 Mode of arrival: walk-in History of Present Illness HPI narrative: This 59-year-old female who is right-hand dominant presents for evaluation of a laceration to her left ring finger. The patient has approximately 1.25 cm laceration on the volar aspect of the right ring finger that she sustained on a sharp lid from a can when she was making dinner for herself. There is no numbness or tingling. There is mild active bleeding. She states she is up-to-date on her tetanus shot Related Data Home Medications ?Medication ?Instructions ?Recorded ?Confirmed bupropion HCl 300 mg 24 hr tablet, 300 mg PO DAILY 09/25/23 05/29/25 extended release cholecalciferol (vitamin D3) 50 50 mcg PO DAILY 09/25/23 02/19/25 mcg (2,000 unit) capsule citalopram 20 mg tablet 20 mg PO DAILY 09/25/23 05/29/25 lamotrigine 25 mg tablet 50 mg PO BEDTIME 09/25/23 05/29/25 lansoprazole 30 mg capsule,delayed 30 mg PO DAILY 09/25/23 05/29/25 release levothyroxine 125 mcg tablet 125 mcg PO DAILY 09/25/23 05/29/25 simvastatin 20 mg tablet 20 mg PO QPM 09/25/23 05/29/25 docusate sodium 100 mg capsule 100 mg PO DAILY PRN constipation 12/22/23 05/29/25 (Col-Rite) loratadine 10 mg tablet (Allergy 10 mg PO DAILY 12/22/23 05/29/25 Relief (loratadine)) meclizine 25 mg tablet 25 mg PO QID PRN dizziness 07/19/24 02/19/25 alendronate 70 mg tablet 70 mg PO QWEEK 11/25/24 05/29/25 albuterol sulfate 2.5 mg/3 mL 2.5 mg inhalation Q4H PRN 02/19/25 05/29/25 (0.083 %) solution for nebulization shortness of breath or wheezing Previous Rx's ?Medication ?Instructions ?Recorded albuterol sulfate 90 mcg/actuation 2 inh inhalation Q6H PRN shortness 02/22/25 aerosol inhaler (Ventolin HFA) of breath or wheezing #8.5 grams benzonatate 200 mg capsule 200 mg PO TID PRN cough #30 caps 02/22/25 cefdinir 300 mg capsule 600 mg (2 x 300 mg) PO DAILY #20 02/22/25 caps meclizine 25 mg tablet 25 mg PO QID PRN dizziness #30 tabs 02/22/25 ondansetron 4 mg disintegrating 4 mg PO Q6H PRN nausea and 02/22/25 tablet vomiting #20 tabs prednisone 10 mg tablet 40 mg (4 x 10 mg) PO DAILY #32 tabs 02/22/25 Allergies Allergy/AdvReac Type Severity Reaction Status Date / Time codeine Allergy Mild Vomiting Verified 05/29/25 22:23 oxycodone (From Percocet) Allergy Mild Vomiting Verified 05/29/25 22:23 promethazine Allergy Mild Agitated Verified 05/29/25 22:23 Sulfa (Sulfonamide Allergy Mild Vomiting Verified 05/29/25 22:23 Antibiotics) hydromorphone (From Dilaudid) AdvReac Mild Rash Verified 05/29/25 22:23 prochlorperazine (From AdvReac Mild Unknown Verified 05/29/25 22:23 Compazine) Review of Systems ROS Status of ROS 10 or more systems reviewed and unremarkable except as noted in history and below [facility] Medical History (Updated 05/29/25 @ 23:31 by Violetta Jones MD) Asthma ?J45.909 - Unspecified asthma, uncomplicated (ICD-10) Hypoxia ?R09.02 - Hypoxemia (ICD-10) Acute bronchitis ?J20.9 - Acute bronchitis, unspecified (ICD-10) Acute exacerbation of chronic obstructive pulmonary disease (COPD) ?J44.1 - Chronic obstructive pulmonary disease with (acute) exacerbation (ICD-10) Hypoxemia ?R09.02 - Hypoxemia (ICD-10) ESE (acute kidney injury) ?N17.9 - Acute kidney failure, unspecified (ICD-10) Flu ?J11.1 - Influenza due to unidentified influenza virus with other respiratory manifestations (ICD-10) GERD (gastroesophageal reflux disease) ?K21.9 - Gastro-esophageal reflux disease without esophagitis (ICD-10) Hypercholesterolemia ?E78.00 - Pure hypercholesterolemia, unspecified (ICD-10) Acute respiratory failure with hypoxia ?J96.01 - Acute respiratory failure with hypoxia (ICD-10) Respiratory distress ?R06.03 - Acute respiratory distress (ICD-10) Neutropenia ?D70.9 - Neutropenia, unspecified (ICD-10) Hypotension due to hypovolemia ?E86.1 - Hypovolemia (ICD-10) Gastroenteritis due to COVID-19 virus ?U07.1 - COVID-19 (ICD-10) ?A08.39 - Other viral enteritis (ICD-10) Dehydration ?E86.0 - Dehydration (ICD-10) ESE (acute kidney injury) ?N17.9 - Acute kidney failure, unspecified (ICD-10) Gastroenteritis ?K52.9 - Noninfective gastroenteritis and colitis, unspecified (ICD-10) COVID ?U07.1 - COVID-19 (ICD-10) COVID-19 ?U07.1 - COVID-19 (ICD-10) Effusion of knee joint right ?M25.461 - Effusion, right knee (ICD-10) Contusion of hand, left ?S60.222A - Contusion of left hand, initial encounter (ICD-10) Chest pain ?R07.9 - Chest pain, unspecified (ICD-10) Hypothyroid ?E03.9 - Hypothyroidism, unspecified (ICD-10) Esophagitis ?K20.90 - Esophagitis, unspecified without bleeding (ICD-10) Pancolitis ?K51.00 - Ulcerative (chronic) pancolitis without complications (ICD-10) Pulmonary hypertension ?I27.20 - Pulmonary hypertension, unspecified (ICD-10) Cholecystitis ?K81.9 - Cholecystitis, unspecified (ICD-10) Depression ?F32.A - Depression, unspecified (ICD-10) On home O2 ?Z99.81 - Dependence on supplemental oxygen (ICD-10) Hyperthyroidism ?E05.90 - Thyrotoxicosis, unspecified without thyrotoxic crisis or storm (ICD-10) Scoliosis ?M41.9 - Scoliosis, unspecified (ICD-10) Emphysema lung ?J43.9 - Emphysema, unspecified (ICD-10) Nausea & vomiting ?R11.2 - Nausea with vomiting, unspecified (ICD-10) Pacemaker ?Z95.0 - Presence of cardiac pacemaker (ICD-10) COPD (chronic obstructive pulmonary disease) ?J44.9 - Chronic obstructive pulmonary disease, unspecified (ICD-10) Surgical History History of tonsillectomy ?Z90.89 - Acquired absence of other organs (ICD-10) H/O right wrist surgery ?Z98.890 - Other specified postprocedural states (ICD-10) H/O colectomy ?Z90.49 - Acquired absence of other specified parts of digestive tract (ICD-10) Family History Mother Family history of COPD (chronic obstructive pulmonary disease) Grandmother Family history of cancer Sister Family history of diabetes mellitus Father Family history of myocardial infarction Social History (Updated 12/27/23 @ 23:45 by Meghana Lo) Within the past year, how often did you have a drink containing alcohol: never Within the past year, how often did you have six or more drinks on one occasion: never Score interpretation: A score less than 3 is consistent with normal alcohol consumption. 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 Known occupational exposures/hazards: No Highest level of school completed/degree received: 10th grade Do you want help with school or training: No Are you now , , , , never or living with a partner: In a typical week, how many times do you talk on the telephone with family, friends, or neighbors: 3 or more times per week How often do you get together with friends or relatives: 3 or more times per week How often do you attend sikh or sabianist services: 4 or more times per year Do you belong to any clubs or organizations such as sikh groups unions, fraternal or athletic groups, or school groups: yes Total score: 3 Score interpretation: A score of greater than or equal to 2 indicates the lowest level of social isolation. Little interest or pleasure in doing things: not at all Feeling down, depressed, or hopeless: not at all Feel stressed/tense/nervous/anxious/difficulty sleeping: to some extent Life stressors: unknown source of stress Due to disability, difficulty making decisions: No Do you think of yourself as: bisexual Gender Identity: female Exam Narrative Exam Narrative: Vital signs and Nursing Notes reviewed: Is afebrile with a normal pulse, normal blood pressure, she is not hypoxic with pulse ox of 95% on room air General: Awake, alert, oriented, no acute distress, lying comfortably on the stretcher HEENT: Normocephalic atraumatic, mucous membranes are moist and pink, eyes are clear, normal conjunctiva, vision is grossly intact Chest: Lungs are clear to auscultation with good air entry, there is no wheezing rhonchi or rales appreciated no accessory muscle use, patient is speaking in complete sentences-no chest wall tenderness to palpation CVS: Regular rate and rhythm S1-S2, no murmurs rubs or gallops, pulses are brisk and equal bilaterally Extremities: Moving all extremities, 1.25 cm irregular shaped laceration to the volar aspect of the left ring finger between the PIP and DIP joint. This does not involve the joint. There is mild active bleeding noted. No numbness or tingling noted to the end of the extremity. Skin: Normal in appearance without rash,pallor, petechiae or purpura Neuro: No focal deficits Constitutional Vital Signs, click to edit/add: Last Vital Signs Temp 98 F 05/29/25 22:16 Pulse 79 05/29/25 22:16 Resp 16 05/29/25 22:16 BP 126/73 05/29/25 22:16 Pulse Ox 95 05/29/25 22:16 O2 Del Method Room Air 05/29/25 22:16 Course Vital Signs Vital signs: Vital Signs Temperature 98 F 05/29/25 22:16 Pulse Rate 79 05/29/25 22:16 Respiratory Rate 16 05/29/25 22:16 Blood Pressure 126/73 05/29/25 22:16 Pulse Oximetry 95 05/29/25 22:16 Oxygen Delivery Method Room Air 05/29/25 22:16 Temperature 98 F 05/29/25 22:16 Pulse Rate 79 05/29/25 22:16 Respiratory Rate 16 05/29/25 22:16 Blood Pressure 126/73 05/29/25 22:16 Pulse Oximetry 95 05/29/25 22:16 Oxygen Delivery Method Room Air 05/29/25 22:16 Discharge Plan Discharge Chief Complaint: Wound/Laceration Clinical Impression: Laceration of finger of left hand Patient Disposition: Home, Self-Care Time of Disposition Decision: 23:30 Condition: Good Prescriptions / Home Meds: No Action meclizine 25 mg tablet 25 mg PO QID PRN (Reason: dizziness) alendronate 70 mg tablet 70 mg PO QWEEK albuterol sulfate 2.5 mg /3 mL (0.083 %) solution for nebulization 2.5 mg inhalation Q4H PRN (Reason: shortness of breath or wheezing) prednisone 10 mg tablet 40 mg PO DAILY Qty: 32 0RF Rx Instructions: 4/day for 3 days, 3/day for 3 days, 2/day for 3 days, 1/day for 3 days, 1/2 /day for 4 days cefdinir 300 mg capsule 600 mg PO DAILY Qty: 20 0RF benzonatate 200 mg capsule 200 mg PO TID PRN (Reason: cough) Qty: 30 0RF ondansetron 4 mg tablet,disintegrating 4 mg PO Q6H PRN (Reason: nausea and vomiting) Qty: 20 0RF meclizine 25 mg tablet 25 mg PO QID PRN (Reason: dizziness) Qty: 30 0RF albuterol sulfate [Ventolin HFA] 90 mcg/actuation HFA aerosol inhaler 2 inh inhalation Q6H PRN (Reason: shortness of breath or wheezing) Qty: 8.5 11RF bupropion HCl 300 mg tablet extended release 24 hr 300 mg PO DAILY cholecalciferol (vitamin D3) 50 mcg (2,000 unit) capsule 50 mcg PO DAILY citalopram 20 mg tablet 20 mg PO DAILY lamotrigine 25 mg tablet 50 mg PO BEDTIME lansoprazole 30 mg capsule,delayed release(DR/EC) 30 mg PO DAILY levothyroxine 125 mcg tablet 125 mcg PO DAILY simvastatin 20 mg tablet 20 mg PO QPM loratadine [Allergy Relief (loratadine)] 10 mg tablet 10 mg PO DAILY docusate sodium [Col-Rite] 100 mg capsule 100 mg PO DAILY PRN (Reason: constipation) Print Language: Cambodian Instructions: Care For Your Stitches (ED), Finger Laceration (ED) Additional Instructions: Sutures can be removed in 10 to 12 days by your family physician. Use bacitracin topically and keep the laceration covered with a sterile dry dressing such as a Band-Aid. Referrals: Paulo Turner MD [Primary Care Provider, Family Practice] - 1 week Procedures ED Procedure Instructions Procedures Procedures: Procedure note: Laceration repair left ring finger; the patient's hand was soaked in Hibiclens and sterile water prior to the procedure. It was irrigated with normal saline, a digital block was performed with 1% lidocaine. When anesthesia was obtained, 5, 4-0 Ethilon sutures were placed into the laceration with good wound edge approximation. Patient tolerated procedure well. Bacitracin dressing was placed topically over the laceration site and wound instructions were given to her. She was encouraged to follow-up with her plan physician in 10 to 12 days for suture removal.
== END 2025-05-29 23:30 | disposition home or self-care (01) ==
PROVIDERS: Emergency Provider Emergency Medicine; PCP Family Medicine
DX: S61.215A Laceration without foreign body of left ring finger without damage to nail, initial encounter (principal); W26.8XXA Contact with other sharp object(s), not elsewhere classified, initial encounter; Y93.G3 Activity, cooking and baking; Z90.49 Acquired absence of other specified parts of digestive tract
CPT/HCPCS: 12001; 99282

== ENCOUNTER 2025-07-14 18:12 | Emergency (ER) | payer OTHER, SELFPAY ==
--- OUTSIDE RECORDS SUMMARY | 2025-07-14 18:19 | XMS_ITS | CCD ---
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 [place] [address]Dr. Shahbaz Rogel Monocytes/100 WBC (Bld) 3.7 % Normal 1.7-12.0 [facility] Comment on above: Performed By: #### C BC ####[facility] Drykfndstz64[address] [place], [place] [address]Dr. Shahbaz Rogel NEUT # 3.1 103/ul Normal 1.4-6.5 [facility] Comment on above: Performed By: #### C BC ####[facility] Jakqmeunxx163[address] [place], [place] [address]Dr. Shahbaz Rogel Neutrophils/100 WBC (Bld) 81.3 % Critically high 43.0-75.0 [facility] Comment on above: Performed By: #### C BC ####[facility] Ihqnojbnxv[address] [place], [place] [address]Dr. Shahbaz Rogel Platelet mean volume (Bld) [Entitic vol] 9.8 fL Normal 9.5-13.5 [facility] Comment on above: Performed By: #### C BC ####[facility] Aldpkyjhpv050[address] [place], [place] [address]Dr. Shahbaz Rogel PLT 184 103/ul Normal 150-450 [facility] Comment on above: Performed By: #### C BC ####[facility] Afslxondzw2150 [place] [phone]. Lilajarrod Rogel RBC 4.25 106/ul Normal 4.20-5.40 [facility] Comment on above: Performed By: #### C BC ####[facility] Zhybnhlwzg4351 [place] [phone]. Lilajarrod Juan F WBC 3.8 103/ul Critically low 4.0-11.0 [facility] Comment on above: Performed By: #### C BC ####[facility] Vqyhoqebfi34[address] [place], [place] [address]Dr. Shahbaz Rogel PROF CHEM 8 (BAS METB)on Anion gap [Moles/Vol] 9.2 mmol/L Normal [facility] Comment on above: Performed By: #### B MP ####[facility] Ewbffimyif867[address] [place], [place] [address]Dr. Shahbaz Rgoel Calcium [Mass/Vol] 8.6 mg/dL Normal 8.5-10.1 [facility] Comment on above: Performed By: #### B MP ####[facility] Comaljstym0485[address] [place], [place] [address]Dr. Shahbaz Rogel Chloride [Moles/Vol] 107 mmol/L Normal 98-107 [facility] Comment on above: Performed By: #### B MP ####[facility] Ynnybgzbpm6417[address] [place], [place] [address]Dr. Shahbaz Rogel CO2 [Moles/Vol] 29.3 mmol/L Normal 21.0-32.0 [facility] Comment on above: Performed By: #### B MP ####[facility] Epeuadjxxu4674[address] [place], [place] [address]Dr. Shahbaz Rogel Creatinine [Mass/Vol] 0.79 mg/dL Normal 0.55-1.02 [facility] Comment on above: Performed By: #### B MP ####[facility] Wrwmsmpqkd26[address] [place], [place] [address]Dr. Shahbaz Rogel EGFR-AF UKRAINIAN >60 Normal >=60 [facility] Comment on above: Performed By: #### B MP ####[facility] Nhzhrjfozl88[address] [place] [phone]. Shahbaz Rogel EGFR-NON AF UKRAINIAN >60 Normal >=60 [facility] Comment on above: Performed By: #### B MP ####[facility] Vhmjkramti75[address] [place] [address]Dr. Shahbaz Rogel Glucose [Mass/Vol] 159 mg/dL Critically high 74-106 [facility] Comment on above: Performed By: #### B MP ####[facility] Mosyvgshdd0615 [place] [address]Dr. Shahbaz Rogel Potassium [Moles/Vol] 3.5 mmol/L Normal 3.5-5.1 [facility] Comment on above: Performed By: #### B MP ####[facility] Cwazxnxnis[address] [place], [place] [address]Dr. Shahbaz Rogel Sodium [Moles/Vol] 142 mmol/L Normal 136-145 [facility] Comment on above: Performed By: #### B MP ####[facility] Eetzqjpovu12[address] [place], [place] [address]Dr. Shahbaz Juan F Urea nitrogen [Mass/Vol] 21.0 mg/dL Critically high 7.0-18.0 [facility] Comment on above: Performed By: #### B MP ####[facility] Gcrootzveu2098[address] [place], [place] [address]Dr. Lilajarrod Juan F Urea nitrogen/Creatinine [Mass ratio] 26.6 mg/mg Normal [facility] Comment on above: Performed By: #### B MP ####[facility] Gaofliaybs36[address] [place] [address]Dr. Shahbaz Juan F XR CHEST 2 Von 01-06-2023 XR CHEST 2 V Normal [facility] CBC AUTO DIFFon 01-05-2023 BASO # 0.0 103/ul Normal 0.0-0.1 [facility] Comment on above: Performed By: #### C BC ####[facility] Dyrddnollo8[address] [place], [place] [address]Dr. Shahbaz Rogel Basophils/100 WBC (Bld) 0.2 % Normal 0.2-2.0 [facility] Comment on above: Performed By: #### C BC ####[facility] Cxmrizzdmi4394 [place] [address]Dr. Shahbaz Rogel EO # 0.0 103/ul Normal 0.0-0.7 [facility] Comment on above: Performed By: #### C BC ####[facility] Tpqoxvzxfk9894 [place] [address]DrChen Lilajarrod Rogel Eosinophils/100 WBC (Bld) 0.0 % Critically low 0.9-7.0 [facility] Comment on above: Performed By: #### C BC ####[facility] Uazzwnhfkj6255[address] [place], [place] [address]Dr. Lilajarrod Rogel Erythrocyte distribution width (RBC) [Ratio] 13.6 % Normal 11.0-15.0 [facility] Comment on above: Performed By: #### C BC ####[facility] Ygtjljnuss1567[address] [place], [place] [address]Dr. Lilajarrod Rogel Hematocrit (Bld) [Volume fraction] 36.6 % Normal 36.0-48.0 [facility] Comment on above: Performed By: #### C BC ####[facility] Lgerlsstnq4630[address] [place], [place] [address]Dr. Shahbaz Rogel Hemoglobin (Bld) [Mass/Vol] 11.6 g/dL Critically low 12.0-16.0 [facility] Comment on above: Performed By: #### C BC ####[facility] Mwzwjpjjbx[address] [place], [place] [address]Dr. Lilajarrod Rogel IG # 0.03 10e3/ul Normal 0.00-0.03 [facility] Comment on above: Performed By: #### C BC ####[facility] Jtlcbpjtfd8[address] [place], [place] [address]Dr. Lialjarrod Rogel IG % 0.5 % Normal 0.0-0.5 [facility] Comment on above: Performed By: #### C BC ####[facility] Uwqtdtfrex8725[address] [place], [place] [address]DrChen Rogel LYMPH # 0.6 103/ul Critically low 1.2-3.8 [facility] Comment on above: Performed By: #### C BC ####[facility] Kjqtngoqdx3662 [place] [address]Dr. Shahbaz Rogel Lymphocytes/100 WBC (Bld) 10.7 % Critically low 20.5-60.0 [facility] Comment on above: Performed By: #### C BC ####[facility] Cdmwupyrjr8438 [place] [address]DrChen Rogel MANUAL DIFF REQ NO Normal [facility] Comment on above: Performed By: #### C BC ####[facility] Gzefernxau9885 [place] [phone] Rogel MCH (RBC) [Entitic mass] 27.7 pg Normal 26.7-34.0 [facility] Comment on above: Performed By: #### C BC ####[facility] Muzhjntqpo13[address] [place], [place] [address]Dr. Shahbaz Rogel MCHC (RBC) [Mass/Vol] 31.7 g/dL Normal 29.9-35.2 [facility] Comment on above: Performed By: #### C BC ####[facility] Crmlhcnyxn[address] [place], [place] [address]DrChen Rogel MCV (RBC) [Entitic vol] 87.4 fL Normal 81.0-99.0 [facility] Comment on above: Performed By: #### C BC ####[facility] Tnoufsittz[address] [place], [place] [address]DrChen Rogel MONO # 0.1 103/ul Critically low 0.3-0.8 [facility] Comment on above: Performed By: #### C BC ####[facility] Gyktaprhgd[address] [place], [place] [address]DrChen Rogel Monocytes/100 WBC (Bld) 2.5 % Normal 1.7-12.0 [facility] Comment on above: Performed By: #### C BC ####[facility] Nqnazlrinl4807[address] [place], [place] [address]DrChen Rogel NEUT # 4.8 103/ul Normal 1.4-6.5 [facility] Comment on above: Performed By: #### C BC ####[facility] Gcdclbmyus9520 [place] [address]Dr. Shahbaz Rogel Neutrophils/100 WBC (Bld) 86.1 % Critically high 43.0-75.0 [facility] Comment on above: Performed By: #### C BC ####[facility] Aavtwgdkiq5564 [place] [phone]. Shahbaz Rogel Platelet mean volume (Bld) [Entitic vol] 10.0 fL Normal 9.5-13.5 [facility] Comment on above: Performed By: #### C BC ####[facility] Gllhnzbgtc9886 [place] [address]Dr. Shahbaz Rogel PLT 193 103/ul Normal 150-450 [facility] Comment on above: Performed By: #### C BC ####[facility] Klpkynshsy6678[address] [place], [place] [address]Dr. Shahbaz Rogel RBC 4.19 106/ul Critically low 4.20-5.40 [facility] Comment on above: Performed By: #### C BC ####[facility] Jmsquhuppw0348[address] [place], [place] [address]Dr. Shahbaz Rogel WBC 5.6 103/ul Normal 4.0-11.0 [facility] Comment on above: Performed By: #### C BC ####[facility] Kelucwbmoz1265 [place] [address]DrChen Rogel PROF CHEM 8 (BAS METB)on Anion gap [Moles/Vol] 12.7 mmol/L Normal [facility] Comment on above: Performed By: #### B MP ####[facility] Bmczrmlpjp092[address] [place], [place] [address]DrChen Rogel Calcium [Mass/Vol] 8.8 mg/dL Normal 8.5-10.1 [facility] Comment on above: Performed By: #### B MP ####[facility] Ceaedqmmnw2170 [place] [address]DrChen Rogel Chloride [Moles/Vol] 107 mmol/L Normal 98-107 [facility] Comment on above: Performed By: #### B MP ####[facility] Fwtzymosli4942 [place] [address]Dr. Shahbaz Rogel CO2 [Moles/Vol] 26.9 mmol/L Normal 21.0-32.0 [facility] Comment on above: Performed By: #### B MP ####[facility] Osztvhuzkk8988 [place] [address]Dr. Shahbaz Juan F Creatinine [Mass/Vol] 0.81 mg/dL Normal 0.55-1.02 [facility] Comment on above: Performed By: #### B MP ####[facility] Tusdfbtxho2284 [place] [address]Dr. Lilajarrod Juan F EGFR-AF UKRAINIAN >60 Normal >=60 [facility] Comment on above: Performed By: #### B MP ####[facility] Rddzlytkla[address] [place], [place] [address]Dr. Shahbaz Rogel EGFR-NON AF UKRAINIAN >60 Normal >=60 [facility] Comment on above: Performed By: #### B MP ####[facility] Xheaqfkzxo326[address] [place], [place] [address]Dr. Lilajarrod Juan F Glucose [Mass/Vol] 144 mg/dL Critically high 74-106 [facility] Comment on above: Performed By: #### B MP ####[facility] Wlrfrhbmvl2092[address] [place], [place] [address]Dr. Lilajarrod Juan F Potassium [Moles/Vol] 3.6 mmol/L Normal 3.5-5.1 [facility] Comment on above: Performed By: #### B MP ####[facility] Qrmpmnjjeh2546[address] [place], [place] [address]Dr. Shahbaz Rogel Sodium [Moles/Vol] 143 mmol/L Normal 136-145 [facility] Comment on above: Performed By: #### B MP ####[facility] Ymkegwzqgz6870 [place] [address]Dr. Shahbaz Rogel Urea nitrogen [Mass/Vol] 20.0 mg/dL Critically high 7.0-18.0 [facility] Comment on above: Performed By: #### B MP ####[facility] Iwykmgzhix6574 [place] [address]Dr. Shahbaz Rogel Urea nitrogen/Creatinine [Mass ratio] 24.7 mg/mg Normal [facility] Comment on above: Performed By: #### B MP ####[facility] Qkhrwezikz4084 [place] [address]Dr. Shahbaz Rogel CBC W MANUAL DIFFon 01-05-20 23 ATYPICAL LYMPH # Normal [facility] Comment on above: Performed By: #### C BCMAN ####[facility] Desiucinav5483 [place] [address]Dr. Shahbaz Rogel ATYPICAL LYMPH % Normal [facility] Comment on above: Performed By: #### C BCMAN ####[facility] Uuqikioguv[address] [place], [place] [address]Dr. Shahbaz Rogel BAND # 0.0 103/ul Normal 0.0-0.3 [facility] Comment on above: Performed By: #### C BCMAN ####[facility] Ypxcivjsqy641[address] [place], [place] [address]Dr. Shahbaz Rogel BAND % 0 % Normal 0-5 [facility] Comment on above: Performed By: #### C BCMAN ####[facility] Trhkjzplkb[address] [place], [place] [address]Dr. Shahbaz Rogel BASOM # 0.00 103/ul Normal 0.00-0.10 [facility] Comment on above: Performed By: #### C BCMAN ####[facility] Meepbunram8[address] [place], [place] [address]Dr. Shahbaz Rogel BASOM % 0.0 % Critically low 0.2-2.0 [facility] Comment on above: Performed By: #### C BCMAN ####[facility] Iitydfkeqv59[address] [place], [place] [address]Dr. Lilalan Rogel BLAST # Normal [facility] Comment on above: Performed By: #### C BCMAN ####[facility] Budzjtncyv443[address] [place], [place] [address]Dr. Lilalan Rogel BLAST % Normal [facility] Comment on above: Performed By: #### C CAIN ####[facility] Sjmndlpzcz9274 [place] [phone]. Shahbaz Rogel CORRECTED WBC Normal 4.0-11.0 [facility] Comment on above: Performed By: #### C CAIN ####[facility] Fkujiwzfpx3803 [place] [phone]. Shahbaz Rogel EOS # 0.00 103/ul Normal 0.00-0.70 [facility] Comment on above: Performed By: #### C CAIN ####[facility] Upikkdoitk3738 [place] [phone]. Shahbaz Rogel EOS% 0.0 % Critically low 0.9-7.0 [facility] Comment on above: Performed By: #### C CAIN ####[facility] Pqnfylmsev7591 [place] [address]Dr. Shahbaz Rogel HCT 36.5 % Normal 36.0-48.0 [facility] Comment on above: Performed By: #### C CAIN ####[facility] Caqwtvpqhw3609 [place] [phone]. Shahbaz Rogel HGB 11.8 g/dl Critically low 12.0-16.0 [facility] Comment on above: Performed By: #### C CAIN ####[facility] Yvgwvzbztk60[address] [place], [place] [address]Dr. Shahbaz Rogel LYMPHM # 0.42 103/ul Critically low 1.20-3.80 [facility] Comment on above: Performed By: #### C CAIN ####[facility] C[address]jgfrblx[address] [place], [place] [address]Dr. Shahbaz Rogel LYMPHM% 12.0 % Critically low 20.5-60.0 [facility] Comment on above: Performed By: #### C CAIN ####[facility] Byzpukbdbk8683 [place] [address]Dr. Shahbaz Rogel MCH 28.0 pg Normal 26.7-34.0 [facility] Comment on above: Performed By: #### C CAIN ####[facility] Lwtotwbxis9067 [place] [phone]. Shahbaz Rogel MCHC 32.3 g/dl Normal 29.9-35.2 [facility] Comment on above: Performed By: #### C CAIN ####[facility] Xahwghhkxn3708 [place] [phone]. Shahbaz Rogel MCV 86.7 fL Normal 81.0-99.0 [facility] Comment on above: Performed By: #### C CAIN ####[facility] Larvqragsq5268 [place] [phone]. Shahbaz Rogel METAMYELOCYTE # Normal [facility] Comment on above: Performed By: #### C CAIN ####[facility] Wossaunfqi85[address] [place], [place] [address]Dr. Shahbaz Rogel METAMYELOCYTE % Normal [facility] Comment on above: Performed By: #### C CAIN ####[facility] Ijufnvohzj[address] [place], [place] [address]Dr. Shahbaz Rogel MONOM# 0.07 103/ul Critically low 0.30-0.80 [facility] Comment on above: Performed By: #### C CAIN ####[facility] Jedlvgyils9327[address] [place], [place] [address]Dr. Shahbaz Rogel MONOM% 2.0 % Normal 1.7-12.0 [facility] Comment on above: Performed By: #### C CAIN ####[facility] Jlyxphqeju7566 [place] [phone]. Shahbaz Rogel MPV 9.9 fL Normal 9.5-13.5 [facility] Comment on above: Performed By: #### C CAIN ####[facility] Yrmncdsowl4126 [place] [phone]. Shahbaz Rogel MYELOCYTE # Normal [facility] Comment on above: Performed By: #### C CAIN ####[facility] Wrcbthxhgj2095 [place] [phone]. Shahbaz Rogel MYELOCYTE % Normal [facility] Comment on above: Performed By: #### C CAIN ####[facility] Zzuduchvai0551 [place] [phone]. Shahbaz Juan F NRBC Normal [facility] Comment on above: Performed By: #### C CAIN ####[facility] Zjsmeveopm4024 [place] [phone]. Shahbaz Rogel PLT 178 103/ul Normal 150-450 [facility] Comment on above: Performed By: #### C CAIN ####[facility] Ekedtlyewq0708 [place] [phone]. Shahbaz Rogel RBC 4.21 106/ul Normal 4.20-5.40 [facility] Comment on above: Performed By: #### C CAIN ####[facility] Ibndivstho9963[address] [place], [place] [address]Dr. Lilajarrod Juan F RDW 13.2 % Normal 11.0-15.0 [facility] Comment on above: Performed By: #### C CAIN ####[facility] Tstyjedmzk[address] [place], [place] [address]Dr. Shahbaz Rogel SEG # 3.01 103/ul Normal 1.40-6.50 [facility] Comment on above: Performed By: #### C CAIN ####[facility] Xbcmigyqmk[address] [place], [place] [address]Dr. Shahbaz Juan F SEG % 86.0 % Critically high 43.0-75.0 [facility] Comment on above: Performed By: #### C CAIN ####[facility] Xxolqsbztv2783 [place] [phone]. Lilajarrod Rogel WBC 3.5 103/ul Critically low 4.0-11.0 [facility] Comment on above: Performed By: #### C CAIN ####[facility] Lemcliqmqw2434 [place] [phone] Rogel PROF CHEM 8 (BAS METB)on Anion gap [Moles/Vol] 10.5 mmol/L Normal [facility] Comment on above: Performed By: #### B MP ####[facility] Oggymqiwgs[address] [place], [place] [phone] Rogel Calcium [Mass/Vol] 8.7 mg/dL Normal 8.5-10.1 [facility] Comment on above: Performed By: #### B MP ####[facility] Upksxxmbuu8365 [place] [address]Dr. Shahbaz Rogel Chloride [Moles/Vol] 108 mmol/L Critically high 98-107 [facility] Comment on above: Performed By: #### B MP ####[facility] Btrhuwyfce1982 [place] [address]Dr. Lilajarrod Juan F CO2 [Moles/Vol] 25.2 mmol/L Normal 21.0-32.0 [facility] Comment on above: Performed By: #### B MP ####[facility] Croscjfjwb[address] [place], [place] [address]Dr. Lilajarrod Rogel Creatinine [Mass/Vol] 0.77 mg/dL Normal 0.55-1.02 [facility] Comment on above: Performed By: #### B MP ####[facility] Bjhovitump5160[address] [place], [place] [address]Dr. Lilajarrod Juan F EGFR-AF UKRAINIAN >60 Normal >=60 [facility] Comment on above: Performed By: #### B MP ####[facility] Tdgvdogirk34[address] [place], [place] [address]Dr. Lilajarrod Juan F EGFR-NON AF UKRAINIAN >60 Normal >=60 [facility] Comment on above: Performed By: #### B MP ####[facility] Cudojfqfbv75[address] [place], [place] [address]Dr. Shahbaz Rogel Glucose [Mass/Vol] 169 mg/dL Critically high 74-106 [facility] Comment on above: Performed By: #### B MP ####[facility] Bijzyfpfdj2367[address] [place], [place] [address]Dr. Shahbaz Rogel Potassium [Moles/Vol] 3.7 mmol/L Normal 3.5-5.1 [facility] Comment on above: Performed By: #### B MP ####[facility] Lkbzamarlh05[address] [place], [place] [address]Dr. Shahbaz Rogel Sodium [Moles/Vol] 140 mmol/L Normal 136-145 [facility] Comment on above: Performed By: #### B MP ####[facility] Froyhclamb05[address] [place], [place] [address]Dr. Lilajarrod Juan F Urea nitrogen [Mass/Vol] 14.0 mg/dL Normal 7.0-18.0 [facility] Comment on above: Performed By: #### B MP ####[facility] Jlpfavulae8863[address] [place], [place] [address]Dr. Shahbaz Rogel Urea nitrogen/Creatinine [Mass ratio] 18.2 mg/mg Normal [facility] Comment on above: Performed By: #### B MP ####[facility] Gyweyrujbq7192[address] [place], [place] [address]Dr. Shahbaz Rogel RESPIRATORY PANEL PLUSon Adenovirus Not detected Normal NOT DETECTED [facility] Comment on above: Performed By: #### R SPLUS ####[facility] Kxnitdhutv4586[address] [place], [place] [address]Dr. Shahbaz Rogel B. Parapertusis Not detected Normal NOT DETECTED [facility] Comment on above: Performed By: #### R SPLUS ####[facility] Qkrtzusjya0[address] [place], [place] [address]Dr. Shahbaz Rogel B. Pertussis Not detected Normal NOT DETECTED [facility] Comment on above: Performed By: #### R SPLUS ####[facility] Aayjztqbne25[address] [place], [place] [address]Dr. Shahbaz Rogel Chlamydia Pneumoniae Not detected Normal NOT DETECTED [facility] Comment on above: Performed By: #### R SPLUS ####[facility] Wcitvglahi[address] [place], [place] [address]Dr. Shahbaz Rogel Coronavirus 229E Not detected Normal NOT DETECTED [facility] Comment on above: Performed By: #### R SPLUS ####[facility] Cucfzunreh22[address] [place], [place] [address]Dr. Shahbaz Rogel Coronavirus HKU1 Not detected Normal NOT DETECTED [facility] Comment on above: Performed By: #### R SPLUS ####[facility] Agpisfjtfv[address] [place], [place] [address]Dr. Shahbaz Rogel Coronavirus NL63 Not detected Normal NOT DETECTED [facility] Comment on above: Performed By: #### R SPLUS ####[facility] Leqvxwdtfz4161 [place] [address]Dr. Shahbaz [facility] Coronavirus OC43 Not detected Normal NOT DETECTED [facility] Comment on above: Performed By: #### R SPLUS ####[facility] Qmymspnmkt09[address] [place], [place] [address]Dr. Shahbaz Rogel Influenza A H1 Not detected Normal NOT DETECTED [facility] Comment on above: Performed By: #### R SPLUS ####[facility] [address] [place], [place] [address]Dr. Shahbaz Rogel Influenza A H1 2009 Not detected Normal NOT DETECTED [facility] Comment on above: Performed By: #### R SPLUS ####[facility] Yidfztzhnd7[address] [place], [place] [address]Dr. Shahbaz Rogel Influenza A H3 Not detected Normal NOT DETECTED [facility] Comment on above: Performed By: #### R SPLUS ####[facility] Ewvahclxwy[address] [place], [place] [address]Dr. Shahbaz Rogel Influenza B Not detected Normal NOT DETECTED [facility] Comment on above: Performed By: #### R SPLUS ####[facility] Rehpjdavsx25[address] [place], [place] [address]Dr. Shahbaz [facility] Metapneumovirus Detected Abnormal NOT DETECTED [facility] Comment on above: Performed By: #### R SPLUS ####[facility] Yxcarujgpe[address] [place], [place] [address]Dr. Shahbaz Rogel Mycoplas. Pneumoniae Not detected Normal NOT DETECTED [facility] Comment on above: Performed By: #### R SPLUS ####[facility] Unsywwydfz[address] [place], [place] [address]Dr. Shahbaz Rogel Parainfluenza 1 Not detected Normal NOT DETECTED [facility] Comment on above: Performed By: #### R SPLUS ####[facility] Poiqtjygov[address] [place], [place] [address]Dr. jarrod Rogel Parainfluenza 2 Not detected Normal NOT DETECTED [facility] Comment on above: Performed By: #### R SPLUS ####[facility] Aazxnidamf[address] [place], [place] [address]Dr. Shahbaz Rogel Parainfluenza 3 Not detected Normal NOT DETECTED [facility] Comment on above: Performed By: #### R SPLUS ####[facility] Skpxcvwmlg8[address] [place], [place] [address]Dr. Shahbaz Rogel Parainfluenza 4 Not detected Normal NOT DETECTED [facility] Comment on above: Performed By: #### R SPLUS ####[facility] Qkaucxsqsr[address] [place], [place] [address]Dr. Shahbaz Rogel Rhino/Enterovirus Not detected Normal NOT DETECTED [facility] Comment on above: Performed By: #### R SPLUS ####[facility] Watqjzzrfu[address] [place], [place] [address]Dr. Shahbaz Rogel RP2 Header 1 RESPIRATORY PANEL: VIRUSES Normal [facility] Comment on above: Performed By: #### R SPLUS ####[facility] Pgdvhiyxco[address] [place], [place] [address]Dr. Shahbaz Rogel RP2 Header 2 RESPIRATORY PANEL: BACTERIA Normal [facility] Comment on above: Performed By: #### R SPLUS ####[facility] Pmzwdjblql[address] [place], [place] [address]Dr. Shahbaz Rogel RSV Not detected Normal NOT DETECTED [facility] Comment on above: Performed By: #### R SPLUS ####[facility] G[address]qrgmwfum[address] [place], [place] [address]Dr. Shahbaz Rogel SARS-CoV-2 (COVID-19) RNA PAVAN+probe Ql (Unsp spec) Not detected Normal NOT DETECTED [facility] Comment on above: Performed By: #### R SPLUS ####[facility] Qhtglhqbdk99[address] [place], [place] [address]Dr. Shahbaz Rogel CARDIAC ROSALINA 3-6on 3 CK [Catalytic activity/Vol] 148 U/L Normal 26-192 [facility] Comment on above: Performed By: #### C MREP ####[facility] Ixlgukqplp[address] [place], [place] [address]Dr. Shahbaz Rogel CK.MB [Mass/Vol] 0.84 ng/mL Normal <=3.60 [facility] Comment on above: Performed By: #### C MREP ####[facility] Dpwyniamsv7[address] [place] [address]Dr. Shahbaz Rogel HSTROP 6.4 pg/mL Normal 4.0-51.3 [facility] Comment on above: Result Comment: CUT- OFF POINTS HAVE BEEN ESTABLISHED BASED ON THE FOURTH UNIVERSAL DEFINITIONS OF MYOCARDIALINFARCTION. THE UPPER REFERENCE LIMIT (URL) OF TROPONIN, DEFINED THE 99TH PERCENTILE OFcTnI DISTRIBUTION IN A REFERENCE POPULATION, HAS BEEN CONFIRMED THE DECISION THRESHOLDFOR DC DIAGNOSIS. Performed By: #### C MREP ####[facility] [address] [place] [address]. Shahbaz Rogel CBC W MANUAL DIFFon 01-04-20 23 ATYPICAL LYMPH # Normal [facility] Comment on above: Performed By: #### C CHANELMAN ####[facility] Qcgseggvcf[address] [place], [place] [address]Dr. Shahbaz Rogel ATYPICAL LYMPH % Normal [facility] Comment on above: Performed By: #### C BCMAN ####[facility] [address] [place] [address]. Shahbaz Rogel BAND # 0.0 103/ul Normal 0.0-0.3 [facility] Comment on above: Performed By: #### C BCMAN ####[facility] Kbkxccuahz[address] [place], [place] [address]Dr. Shahbaz Rogel BAND % 0 % Normal 0-5 [facility] Comment on above: Performed By: #### C BCMAN ####[facility] Srztczbjql[address] [place] [address]Dr. Lilajarrod Juan F BASOM # 0.00 103/ul Normal 0.00-0.10 [facility] Comment on above: Performed By: #### C BCMAN ####[facility] [address] [place] [address]. Shahbaz Rogel BASOM % 0.0 % Critically low 0.2-2.0 [facility] Comment on above: Performed By: #### C BCBRICE ####[facility] Fgllezcmhy6[address] [place] [phone]. Shahbaz Rogel BLAST # Normal [facility] Comment on above: Performed By: #### C BCBRICE ####[facility] Lwslzxfjia1438 [place] [phone]. Shahbaz Rogel BLAST % Normal [facility] Comment on above: Performed By: #### C BCBRICE ####[facility] Eqovquyxlv2346 [place] [address]Dr. Shahbaz Rogel CORRECTED WBC Normal 4.0-11.0 [facility] Comment on above: Performed By: #### C CAIN ####[facility] Oxzqpkbbev4[address] [place], [place] [address]Dr. Shahbaz Rogel EOS # 0.02 103/ul Normal 0.00-0.70 [facility] Comment on above: Performed By: #### C CAIN ####[facility] Rnlpchzgmj01[address] [place], [place] [address]Dr. Shahbaz Rogel EOS% 1.0 % Normal 0.9-7.0 [facility] Comment on above: Performed By: #### C CAIN ####[facility] Mlhhdzoxzr7655[address] [place], [place] [address]Dr. Shahbaz Rogel HCT 37.5 % Normal 36.0-48.0 [facility] Comment on above: Performed By: #### C CAIN ####[facility] Ksbkehfxdw14[address] [place] [address]Dr. Shahbaz Rogel HGB 12.0 g/dl Normal 12.0-16.0 [facility] Comment on above: Performed By: #### C CAIN ####[facility] Hxfwnjtenh9106 [place] [address]Dr. Shahbaz Rogel LYMPHM # 0.21 103/ul Critically low 1.20-3.80 [facility] Comment on above: Performed By: #### C CAIN ####[facility] Xuhgukzpax[address] [place], [place] [address]Dr. Shahbaz Rogel LYMPHM% 13.0 % Critically low 20.5-60.0 [facility] Comment on above: Performed By: #### C CAIN ####[facility] Pxdecyopsc79[address] [place] [address]Dr. Shahbaz Rogel MCH 27.8 pg Normal 26.7-34.0 [facility] Comment on above: Performed By: #### C CAIN ####[facility] Ydlwedkqrb7149 [place] [address]Dr. Shahbaz Rogel MCHC 32.0 g/dl Normal 29.9-35.2 [facility] Comment on above: Performed By: #### C CAIN ####[facility] Heewvbprca5726 [place] [address]Dr. Shahbaz Rogel MCV 86.8 fL Normal 81.0-99.0 [facility] Comment on above: Performed By: #### C CAIN ####[facility] Zmikwcannd6[address] [place], [place] [address]Dr. Shahbaz Rogel METAMYELOCYTE # Normal [facility] Comment on above: Performed By: #### C CAIN ####[facility] Snculzcjay8547 [place] [address]Dr. Shahbaz Rogel METAMYELOCYTE % Normal [facility] Comment on above: Performed By: #### C CAIN ####[facility] Czpebmvytg[address] [place], [place] [address]Dr. Shahbaz Rogel MONOM# 0.02 103/ul Critically low 0.30-0.80 [facility] Comment on above: Performed By: #### C CAIN ####[facility] Jkicxnxsnk5501 [place] [address]Dr. Shahbaz Rogel MONOM% 1.0 % Critically low 1.7-12.0 [facility] Comment on above: Performed By: #### C CAIN ####[facility] Hcbpknqyeq0768 [place] [address]Dr. Shahbaz Rogel MPV 9.5 fL Normal 9.5-13.5 [facility] Comment on above: Performed By: #### C CAIN ####[facility] Fojmehnvhe[address] [place], [place] [address]Dr. Shahbaz Rogel MYELOCYTE # Normal [facility] Comment on above: Performed By: #### C CAIN ####[facility] Tkqfkfmpmw8[address] [place] [phone]. Shahbaz Rogel MYELOCYTE % Normal [facility] Comment on above: Performed By: #### C CAIN ####[facility] Gpmmkmwyja5496 [place] [phone]. Shahbaz Rogel NRBC Normal [facility] Comment on above: Performed By: #### C CAIN ####[facility] Wazhvtwmnl9273 [place] [phone]. Shahbaz Rogel PLT 173 103/ul Normal 150-450 [facility] Comment on above: Performed By: #### C CAIN ####[facility] Cmsthtjmti2289 [place] [phone]. Shahbaz Rogel RBC 4.32 106/ul Normal 4.20-5.40 [facility] Comment on above: Performed By: #### C CAIN ####[facility] Ecveoxpndr7669 [place] [phone]. Shahbaz Rogel RDW 13.1 % Normal 11.0-15.0 [facility] Comment on above: Performed By: #### C CAIN ####[facility] Ejgngdcaev[address] [place], [place] [address]Dr. Shahbaz Rogel SEG # 1.36 103/ul Critically low 1.40-6.50 [facility] Comment on above: Performed By: #### C CAIN ####[facility] Dsvgjdxxoi6552 [place] [phone]. Shahbaz Rogel SEG % 85.0 % Critically high 43.0-75.0 [facility] Comment on above: Performed By: #### C CAIN ####[facility] Wubswmpcmh8976 [place] [phone]. Shahbaz Rogel WBC 1.6 103/ul Critically low 4.0-11.0 [facility] Comment on above: Performed By: #### C CAIN ####[facility] Kywsmwfeea[address] [place], [place] [address]Dr. Lilajarrod Juan F CT CHEST WO CONon 01-03-2023 CT CHEST WO CON Normal [facility] ER URINE PROFILEon 3 Bilirubin Ql (U) Negative Normal NEGATIVE [facility] Comment on above: Performed By: #### E RUR ####[facility] Jhwmoqxptc[address] [place], [place] [address]Dr. Shahbaz Rogel Clarity (U) CLEAR Normal CLEAR [facility] Comment on above: Performed By: #### E RUR ####[facility] Opzecpaesb[address] [place], [place] [address]Dr. Lialjarrod Rogel Color (U) LT. YELLOW Normal YELLOW [facility] Comment on above: Performed By: #### E RUR ####[facility] Osxxucxvif7347[address] [place], [place] [address]Dr. Shahbaz Rogel ERUAHD A micrscopic examina tion will be performed if indicated. Normal [facility] Comment on above: Performed By: #### E RUR ####[facility] Xkmpvbuurv9364[address] [place], [place] [address]Dr. Lilajarrod Rogel Glucose Ql (U) Negative Normal NEGATIVE [facility] Comment on above: Performed By: #### E RUR ####[facility] Gypbwsnper[address] [place], [place] [address]Dr. Lilajarrod Rogel Hemoglobin Ql (U) Negative Normal NEGATIVE [facility] Comment on above: Performed By: #### E RUR ####[facility] Eyiiibygnw904[address] [place], [place] [address]Dr. Lilajarrod Rogel Ketones Ql (U) Negative Normal NEGATIVE [facility] Comment on above: Performed By: #### E RUR ####[facility] Auxtvyuskz1713[address] [place], [place] [address]Dr. Lilalan Rogel LEUKOCYTES Negative Normal NEGATIVE [facility] Comment on above: Performed By: #### E RUR ####[facility] Hrulbtfkjd97[address] [place], [place] [address]Dr. Lilalan Rogel Nitrite Ql (U) Negative Normal NEGATIVE [facility] Comment on above: Performed By: #### E RUR ####[facility] Yhpboqjemt8216 [place] [address]Dr. Shahbaz Rogel pH (U) 6.0 [pH] Normal 5-9 [facility] Comment on above: Performed By: #### E RUR ####[facility] Okefarpsqv[address] [place], [place] [address]Dr. Shahbaz Rogel SPEC GRAVITY <=1.005 Abnormal 1.005-<=1. 025 [facility] Comment on above: Performed By: #### E RUR ####[facility] Nkrfqftres9[address] [place], [place] [address]Dr. Shahbaz Rogel UA PROTEIN Negative Normal NEGATIVE/ TRACE [facility] Comment on above: Performed By: #### E RUR ####[facility] Becqtyekzr26[address] [place], [place] [address]Dr. Shahbaz Rogel UR MICRO IND NOT INDICATED Normal [facility] Comment on above: Performed By: #### E RUR ####[facility] Mgifwfwqru95[address] [place], [place] [address]Dr. Shahbaz Rogel Urobilinogen Qn (U) 0.2 {Melida'U}/dL Normal 0.2 - 1. 0 [facility] Comment on above: Performed By: #### E RUR ####[facility] Qanglgmhxj[address] [place], [place] [address]Dr. Shahbaz Rogel LACTATE/LACTIC ACIDon 2022 Lactate [Moles/Vol] 1.5 mmol/L Normal 0.4-2.0 [facility] Comment on above: Performed By: #### L ACT ####[facility] Uovjufftuu94[address] [place], [place] [address]Dr. Sahhbaz Rogel PROF CHEM 8 (BAS METB)on Anion gap [Moles/Vol] 11.6 mmol/L Normal [facility] [place] [facility] Comment on above: Performed By: #### B MP ####[facility] Tubheivzno[address] [place], [place] [address]Dr. Shahbaz Rogel Calcium [Mass/Vol] 8.1 mg/dL Critically low 8.5-10.1 [facility] Comment on above: Performed By: #### B MP ####[facility] Vnweepvujq6864 [place] [address]Dr. Shahbaz Rogel Chloride [Moles/Vol] 109 mmol/L Critically high 98-107 [facility] Comment on above: Performed By: #### B MP ####[facility] Wjilqmtohn6388 [place] [address]Dr. Shahbaz Rogel CO2 [Moles/Vol] 25.2 mmol/L Normal 21.0-32.0 [facility] Comment on above: Performed By: #### B MP ####[facility] Qyavpdtgjc1126 [place] [address]Dr. Shahbaz Rogel Creatinine [Mass/Vol] 0.89 mg/dL Normal 0.55-1.02 [facility] Comment on above: Performed By: #### B MP ####[facility] Scevgbuwmw64[address] [place], [place] [address]Dr. Shahbaz Rogel EGFR-AF UKRAINIAN >60 Normal >=60 [facility] Comment on above: Performed By: #### B MP ####[facility] Bnwgcndvmk3999 [place] [address]Dr. Shahbaz Rogel EGFR-NON AF UKRAINIAN >60 Normal >=60 [facility] Comment on above: Performed By: #### B MP ####[facility] Ssccefouny9967 [place] [address]Dr. Shahbaz Rogel Glucose [Mass/Vol] 167 mg/dL Critically high 74-106 [facility] Comment on above: Performed By: #### B MP ####[facility] Gxljsyviya2818 [place] [address]Dr. Shahbaz Rogel Potassium [Moles/Vol] 3.8 mmol/L Normal 3.5-5.1 [facility] Comment on above: Performed By: #### B MP ####[facility] Rjngajvcek3450 [place] [address]Dr. Lilajarrod Rogel Sodium [Moles/Vol] 142 mmol/L Normal 136-145 [facility] Comment on above: Performed By: #### B MP ####[facility] Eeaqrsefxq5783 [place] [address]Dr. Shahbaz Rogel Urea nitrogen [Mass/Vol] 9.0 mg/dL Normal 7.0-18.0 [facility] Comment on above: Performed By: #### B MP ####[facility] Bvwqdwtifk6643 [place] [address]Dr. Shahbaz Rogel Urea nitrogen/Creatinine [Mass ratio] 10.1 mg/mg Normal [facility] Comment on above: Performed By: #### B MP ####[facility] Fqwazljhoy0238 [place] [address]Dr. Shahbaz Juan F CARDIAC ROSALINA ADMITon 023 CK [Catalytic activity/Vol] 173 U/L Normal 26-192 [facility] Comment on above: Performed By: #### C EZEKIEL, BMP ####[facility] Doxwumjjyv[address] [place], [place] [address]Dr. Lilajarrod Rogel CK.MB [Mass/Vol] 0.55 ng/mL Normal <=3.60 [facility] Comment on above: Performed By: #### C EZEKIEL, BMP ####[facility] Jpjwfoylmq[address] [place], [place] [address]Dr. Shahbaz Rogel HSTROP 5.9 pg/mL Normal 4.0-51.3 [facility] Comment on above: Result Comment: CUT- OFF POINTS HAVE BEEN ESTABLISHED BASED ON THE FOURTH UNIVERSAL DEFINITIONS OF MYOCARDIALINFARCTION. THE UPPER REFERENCE LIMIT (URL) OF TROPONIN, DEFINED THE 99TH PERCENTILE OFcTnI DISTRIBUTION IN A REFERENCE POPULATION, HAS BEEN CONFIRMED THE DECISION THRESHOLDFOR DC DIAGNOSIS. Performed By: #### C EZEKIEL, BMP ####[facility] Cpxapxfavd5359 [place] [address]Dr. Lilajarrod Rogel LEN 76 ng/mL Normal 9-82 [facility] Comment on above: Performed By: #### C EZEKIEL, BMP ####[facility] Qbtdcnrjxg2148 [place] [address]Dr. Shahbaz Rogel CBC W MANUAL DIFFon 01-03-20 23 ATYPICAL LYMPH # Normal [facility] Comment on above: Performed By: #### C CAIN ####[facility] Ejsiadjgfa2892 [place] [address]Dr. Shahbaz Rogel ATYPICAL LYMPH % Normal [facility] Comment on above: Performed By: #### C BCBRICE ####[facility] Gqhsrfktqm4071 [place] [address]Dr. Yilan Rogel BAND # Normal 0.0-0.3 [facility] Comment on above: Performed By: #### C BCBRICE ####[facility] Hstscnsuzo0387 [place] [address]Dr. Yilan Rogel BAND % Normal 0-5 [facility] Comment on above: Performed By: #### C CAIN ####[facility] Rqusspwbef[address] [place], [place] [address]Dr. Shahbaz Rogel BASOM # 0.00 103/ul Normal 0.00-0.10 [facility] Comment on above: Performed By: #### C CAIN ####[facility] Bdeuktgbtb15[address] [place], [place] [address]Dr. Shahbaz Rogel BASOM % 0.0 % Critically low 0.2-2.0 [facility] Comment on above: Performed By: #### C CAIN ####[facility] Ohlofyqejv07[address] [place], [place] [address]Dr. Shahbaz Rogel BLAST # Normal [facility] Comment on above: Performed By: #### C CAIN ####[facility] Ozcuzqrfzt67[address] [place], [place] [address]Dr. Shahbaz Rogel BLAST % Normal [facility] Comment on above: Performed By: #### C CAIN ####[facility] Mfvhjefhdv3023[address] [place], [place] [address]Dr. Shahbaz Rogel CORRECTED WBC Normal 4.0-11.0 [facility] Comment on above: Performed By: #### C CAIN ####[facility] Cxhfdzdeba5[address] [place], [place] [address]Dr. Lilalan Rogel EOS # 0.03 103/ul Normal 0.00-0.70 [facility] Comment on above: Performed By: #### C CAIN ####[facility] Kudtnvoxyw6004 [place] [phone]. Shahbaz Rogel EOS% 1.0 % Normal 0.9-7.0 [facility] Comment on above: Performed By: #### C CAIN ####[facility] Mknzglevkd4375 [place] [phone]. Shahbaz Rogel HCT 42.8 % Normal 36.0-48.0 [facility] Comment on above: Performed By: #### C CAIN ####[facility] Qxssiufumc4745 [place] [phone]. Shahbaz Rogel HGB 14.1 g/dl Normal 12.0-16.0 [facility] Comment on above: Performed By: #### Cheri BARLOW ####[facility] Lqoljngprd2152 [place] [address]Dr. Shahbaz Rogel LYMPHM # 0.64 103/ul Critically low 1.20-3.80 [facility] Comment on above: Performed By: #### Cheri BARLOW ####[facility] Vveqluxtfd3132 [place] [phone]. Shahbaz Rogel LYMPHM% 23.0 % Normal 20.5-60.0 [facility] Comment on above: Performed By: #### Cheri BARLOW ####[facility] Epmgweztew5887 [place] [phone]. Shahbaz Rogel MCH 28.0 pg Normal 26.7-34.0 [facility] Comment on above: Performed By: #### Cheri BARLOW ####[facility] Vyqljxmfpd9389 [place] [phone]. Shahbaz Rogel MCHC 32.9 g/dl Normal 29.9-35.2 [facility] Comment on above: Performed By: #### C CAIN ####[facility] Podilzowln7301 [place] [phone]. Shahbaz Rogel MCV 84.9 fL Normal 81.0-99.0 [facility] Comment on above: Performed By: #### C CAIN ####[facility] S[address]xrnftqys[address] [place], [place] [address]Dr. Shahbaz Rogel METAMYELOCYTE # Normal [facility] Comment on above: Performed By: #### C CAIN ####[facility] Pcxiqrpbsw5079 [place] [phone]. Shahbaz Rogel METAMYELOCYTE % Normal [facility] Comment on above: Performed By: #### C CAIN ####[facility] Pogddtpytp8441 [place] [phone]. Shahbaz Rogel MONOM# 0.31 103/ul Normal 0.30-0.80 [facility] Comment on above: Performed By: #### C CAIN ####[facility] Puhdvidpgy8747 [place] [phone]. Shahbaz Rogel MONOM% 11.0 % Normal 1.7-12.0 [facility] Comment on above: Performed By: #### C CAIN ####[facility] Rydlphfkby5282 [place] [phone]. Shahbaz Juan F MPV 9.5 fL Normal 9.5-13.5 [facility] Comment on above: Performed By: #### C CAIN ####[facility] Hpbfvckbje9644 [place] [phone]. Shahbaz Rogel MYELOCYTE # Normal [facility] Comment on above: Performed By: #### C CAIN ####[facility] Fumwzkicjm9063 [place] [phone]. Shahbaz Rogel MYELOCYTE % Normal [facility] Comment on above: Performed By: #### C CAIN ####[facility] Fcnvxilaaq[address] [place], [place] [address]Dr. Shahbaz Rogel NRBC Normal [facility] Comment on above: Performed By: #### C CAIN ####[facility] Higatxpojf5195 [place] [phone]. Shahbaz Rogel PLT 197 103/ul Normal 150-450 [facility] Comment on above: Performed By: #### C CAIN ####[facility] Yhamybbood0897 [place] [phone]. Shahbaz Rogel RBC 5.04 106/ul Normal 4.20-5.40 [facility] Comment on above: Performed By: #### C CAIN ####[facility] Ybltkdubnc1444 [place], [place] [address]Pj. Shahbaz Rogel RDW 13.2 % Normal 11.0-15.0 [facility] Comment on above: Performed By: #### C CAIN ####[facility] Ipdwrsdlqs1207 [place], [place] [address]Jb. Shahbaz Rogel SEG # 1.82 103/ul Normal 1.40-6.50 [facility] Comment on above: Performed By: #### C CAIN ####[facility] Ckcaaivhyv1153 [place], [place] [address]Nl. Shahbaz Rogel SEG % 65.0 % Normal 43.0-75.0 [facility] Comment on above: Performed By: #### C CAIN ####[facility] Plguamkvcs2580 [place], [place] [address]Li. Shahbaz Rogel WBC 2.8 103/ul Critically low 4.0-11.0 [facility] Comment on above: Performed By: #### C CAIN ####[facility] Masqnnehgh7249 [place], [place] [address]Dd. Shahbaz Rogel [facility]on SARS-CoV-2 (COVID-19) RNA PAVAN+probe Ql (Unsp spec) Not detected Normal NOT DETECTED [facility] Comment on above: Result Comment: When diagnostic [...] for this test is supported by the [place] of Health and Human Service's declaration that [...] be used). Performed By: #### C VDTBH ####[facility] Uoxdldczth1082 [place] [address]DrChen Rogel D-DIMERon 01-02-2023 D-DIMER 0.38 mg/L FEU Normal <=0.59 [facility] Comment on above: Performed By: #### D DIM ####[facility] Iborijixuo5009 [place] [address]Dr. Shahbaz Rogel D-DIMER COMMENTS SEE BELOW Normal [facility] Comment on above: Result Comment: Incr eases [...] generalized hospitalization. Performed By: #### D DIM ####[facility] Wjibsetmsz[address] [place], [place] [address]Dr. Shahbaz Rogel LACTATE/LACTIC ACIDon 2022 Lactate [Moles/Vol] 2.1 mmol/L Critically high 0.4-2.0 [facility] Comment on above: Performed By: #### L ACT ####[facility] Ggkexiolhb67[address] [place], [place] [address]DrChen Rogel PROF CHEM 8 (BAS METB)on Anion gap [Moles/Vol] 14.3 mmol/L Normal [facility] [place] [facility] Comment on above: Performed By: #### C EMILIO FALCON ####[facility] Lwgfyligga[address] [place], [place] [address]DrChen Rogel Calcium [Mass/Vol] 9.0 mg/dL Normal 8.5-10.1 [facility] Comment on above: Performed By: #### C EMILIO FALCON ####[facility] Ardsmuznpy3220 [place] [address]Dr. Shahbaz Rogel Chloride [Moles/Vol] 102 mmol/L Normal 98-107 [facility] Comment on above: Performed By: #### Cheri FALCON, BMP ####[facility] Xeongjwnqy3627 [place] [address]Dr. Shahbaz Rogel CO2 [Moles/Vol] 25.5 mmol/L Normal 21.0-32.0 [facility] Comment on above: Performed By: #### Cheri FALCON, BMP ####[facility] Cyyaslbexo0558 [place] [address]Dr. Shahbaz Rogel Creatinine [Mass/Vol] 1.01 mg/dL Normal 0.55-1.02 [facility] Comment on above: Performed By: #### Cheri FALCON, BMP ####[facility] Saiymtarxj9150 [place] [address]Dr. Shahbaz Rogel EGFR-AF UKRAINIAN >60 Normal >=60 [facility] Comment on above: Performed By: #### Cheri FALCON, BMP ####[facility] Fwfxhifqgt2319 [place] [address]Dr. Shahbaz Rogel EGFR-NON AF UKRAINIAN 56 mL/min/1.73m2 Critically low >=60 [facility] Comment on above: Performed By: #### Cheri FALCON, BMP ####[facility] Qlannmrron6611 [place] [address]Dr. Shahbaz Rogel Glucose [Mass/Vol] 105 mg/dL Normal 74-106 [facility] Comment on above: Performed By: #### Cheri FALCON, BMP ####[facility] Pkfumefabc5205 [place] [address]Dr. Shahbaz Rogel Potassium [Moles/Vol] 3.8 mmol/L Normal 3.5-5.1 [facility] Comment on above: Performed By: #### Cheri FALCON, BMP ####[facility] Osnqumukgc0165 [place] [address]Dr. Shahbaz Rogel Sodium [Moles/Vol] 138 mmol/L Normal 136-145 [facility] Comment on above: Performed By: #### Cheri FALCON, BMP ####[facility] Oryhhwwypg3[address] [place] [id number]. Shahbaz Rogel Urea nitrogen [Mass/Vol] 9.0 mg/dL Normal 7.0-18.0 [facility] Comment on above: Performed By: #### C JOSSYM, BMP ####[facility] [address] [place], [place] [address]Dr. Shahbaz Rogel Urea nitrogen/Creatinine [Mass ratio] 8.9 mg/mg Normal [facility] Comment on above: Performed By: #### C EZEKIEL, BMP ####[facility] [address]flwp[address] [place], [place] [address]Dr. Shahbaz Juan F XR CHEST 1 Von 01-02-2023 XR CHEST 1 V Normal [facility] INSULINon 11-02-2022 Insulin 6.0 uIU/mL Normal 2.6-24.9 [facility] Comment on above: Performed By: #### I NSULIN ####[facility] [address]es[address] [place], [place] [address]Dr. Shahbaz Juan F CBC AUTO DIFFon 11-01-2022 BASO # 0.0 103/ul Normal 0.0-0.1 [facility] Comment on above: Performed By: #### C BC ####[facility] [address]ul[address] [place], [place] [address]Dr. Shahbaz Juan F Basophils/100 WBC (Bld) 0.5 % Normal 0.2-2.0 [facility] Comment on above: Performed By: #### C BC ####[facility] [address]uc[address] [place], [place] [address]Dr. Shahbaz Juan F EO # 0.2 103/ul Normal 0.0-0.7 [facility] Comment on above: Performed By: #### C BC ####[facility] [address]odw[address] [place], [place] [address]Dr. Shahbaz Juan F Eosinophils/100 WBC (Bld) 5.2 % Normal 0.9-7.0 [facility] Comment on above: Performed By: #### C BC ####[facility] [address]ou[address]qtqa[address] [place], [place] [address]Dr. Shahbaz Rogel Erythrocyte distribution width (RBC) [Ratio] 12.7 % Normal 11.0-15.0 [facility] Comment on above: Performed By: #### C BC ####[facility] [address] [place] [address]Dr. Shahbaz Rogel Hematocrit (Bld) [Volume fraction] 46.4 % Normal 36.0-48.0 [facility] Comment on above: Performed By: #### C BC ####[facility] [address] [place], [place] [address]Dr. Shahbaz Rogel Hemoglobin (Bld) [Mass/Vol] 14.9 g/dL Normal 12.0-16.0 [facility] Comment on above: Performed By: #### C BC ####[facility] [address]bvibli[address] [place], [place] [address]Dr. Shahbaz Rogel IG # 0.00 10e3/ul Normal 0.00-0.03 [facility] Comment on above: Performed By: #### C BC ####[facility] [address]fr[address]wq[address] [place], [place] [address]Dr. Lilajarrod Rogel IG % 0.0 % Normal 0.0-0.5 [facility] Comment on above: Performed By: #### C BC ####[facility] [address] [place], [place] [address]DrChen Shahbaz Rogel LYMPH # 1.1 103/ul Critically low 1.2-3.8 [facility] Comment on above: Performed By: #### C BC ####[facility] [address]ymdoxcdvi[address] [place], [place] [address]Dr. Lilajarrod Rogel Lymphocytes/100 WBC (Bld) 25.5 % Normal 20.5-60.0 [facility] Comment on above: Performed By: #### C BC ####[facility] [address]ureuup[address] [place], [place] [address]Dr. Shahbaz Rogel MANUAL DIFF REQ NO Normal [facility] Comment on above: Performed By: #### C BC ####[facility] I[address] [place], [place] [address]Dr. Shahbaz Rogel MCH (RBC) [Entitic mass] 27.8 pg Normal 26.7-34.0 [facility] Comment on above: Performed By: #### C BC ####[facility] [address] [place] [address]DrChen Rogel MCHC (RBC) [Mass/Vol] 32.1 g/dL Normal 29.9-35.2 [facility] Comment on above: Performed By: #### C BC ####[facility] [address]ovtbvu[address] [place], [place] [address]DrChen Rogel MCV (RBC) [Entitic vol] 86.6 fL Normal 81.0-99.0 [facility] Comment on above: Performed By: #### C BC ####[facility] [address]rx[address]qpm[address] [place], [place] [address]DrChen Rogel MONO # 0.2 103/ul Critically low 0.3-0.8 [facility] Comment on above: Performed By: #### C BC ####[facility] [address]ok[address] [place], [place] [address]DrChen Rogel Monocytes/100 WBC (Bld) 5.4 % Normal 1.7-12.0 [facility] Comment on above: Performed By: #### C BC ####[facility] [address] [place], [place] [address]DrChen Rogel NEUT # 2.7 103/ul Normal 1.4-6.5 [facility] Comment on above: Performed By: #### C BC ####[facility] [address]fxon[address] [place], [place] [address]DrChen Rogel Neutrophils/100 WBC (Bld) 63.4 % Normal 43.0-75.0 [facility] Comment on above: Performed By: #### C BC ####[facility] [address]xtp[address] [place], [place] [address]DrChen Rogel Platelet mean volume (Bld) [Entitic vol] 9.4 fL Critically low 9.5-13.5 [facility] Comment on above: Performed By: #### C BC ####[facility] [address]azdpdp[address] [place], [place] [address]Dr. Shahbaz Rogel PLT 216 103/ul Normal 150-450 [facility] Comment on above: Performed By: #### C BC ####[facility] [address] [place] [address]Dr. Shahbaz Rogel RBC 5.36 106/ul Normal 4.20-5.40 [facility] Comment on above: Performed By: #### C BC ####[facility] [address]ze[address] [place] [address]Dr. Shahbaz Rogel WBC 4.2 103/ul Normal 4.0-11.0 [facility] Comment on above: Performed By: #### C BC ####[facility] [address] [place] [address]Dr. Shahbaz Rogel FREE THYROXINE INDEX T7on FTI 2.92 Normal 1.30-4.50 [facility] Comment on above: Performed By: #### C MP, LIPID, T7, TSH ####[facility] [address]rxzv[address] [place], [place] [address]Dr. Shahbaz Rogel T3U 37.0 % Normal 30.0-39.0 [facility] Comment on above: Performed By: #### C MP, LIPID, T7, TSH ####[facility] [address]ojn[address] [place] [address]Dr. Shahbaz Rogel T4 [Mass/Vol] 7.90 ug/dL Normal 4.80-13.90 [facility] Comment on above: Performed By: #### C MP, LIPID, T7, TSH ####[facility] [address]cyp[address] [place], [place] [address]Dr. Shahbaz Rogel GLYCOHEMOGLOBIN A1Con 2022 ADA RECOMMENDATION SEE BELOW Normal [facility] Comment on above: Result Comment: ADA RECOMMENDED LIMIT 4.0 - 6.0 ADA THERAPEUTIC TARGET < 7.0 ACTION SUGGESTED > 7.0 Performed By: #### A 1C ####[facility] [address] [place], [place] [address]Dr. Shahbaz Rogel Glucose [Mass/Vol] 120 mg/dL Normal [facility] Comment on above: Performed By: #### A 1C ####[facility] [address]ts[address] [place] [id number]. Shahbaz Rogel HbA1c (Bld) [Mass fraction] 5.8 % Normal 4.5-6.2 [facility] Comment on above: Performed By: #### A 1C ####[facility] [address]fe[address]ens[address] [place] [id number]. Shahbaz Rogel IRONon 11-01-2022 Iron [Mass/Vol] 54.0 ug/dL Normal 50.0-170.0 [facility] Comment on above: Performed By: #### I GRIS ####[facility] [address] [place], [place] [id number]. Shahbaz Rogel LIPID PROFILEon 11-01-2022 CHOL-HDL RATIO NORM SEE BELOW Normal [facility] Comment on above: Result Comment: 3.3 - 4.4 LOW RISK 4.4 - 7.1 AVERAGE RISK 7.1 - 11.0 MODERATE RISK >11.0 HIGH RISK Performed By: #### C MP, LIPID, T7, TSH ####[facility] [address] [place] [id number]. Shahbaz Rogel Cholesterol [Mass/Vol] 203 mg/dL Critically high <=200 [facility] Comment on above: Performed By: #### C MP, LIPID, T7, TSH ####[facility] [address]mqngfol[address] [place] [id number]. Shahbaz Rogel Cholesterol in HDL [Mass/Vol] 42 mg/dL Normal 40-60 [facility] Comment on above: Performed By: #### C MP, LIPID, T7, TSH ####[facility] [address]ft[address]me[address] [place] [id number]. Shahbaz Rogel Cholesterol in LDL [Mass/Vol] 121.4 mg/dL Normal [facility] Comment on above: Performed By: #### C MP, LIPID, T7, TSH ####[facility] [address]owsfh[address] [place] [id number]. Shahbaz Rogel Cholesterol.total/Chol esterol in HDL [Mass ratio] 4.8 {ratio} Normal [facility] Comment on above: Performed By: #### C MP, LIPID, T7, TSH ####[facility] [address]ler[address] [place] [address]Dr. Shahbaz Rogel HDL NORMAL > or = 60 mg/dl - LO W CARDIOVASCULAR RISK <40 mg/dl - HIGH CARDIOVASCULAR RISK Normal [facility] Comment on above: Performed By: #### C MP, LIPID, T7, TSH ####[facility] [address]qh[address] [place] [address]Dr. Shahbaz Rogel LDL CALC NORMAL SEE BELOW Normal [facility] Comment on above: Result Comment: <100 mg/dl OPTIMAL 100 - 129 mg/dl NEAR OR ABOVE OPTIMAL 130 - 159 mg/dl BORDERLINE HIGH 160 - 189 mg/dl HIGH >190 mg/dl VERY HIGH Performed By: #### C MP, LIPID, T7, TSH ####[facility] [address]ageil[address] [place] [address]Dr. Shahbaz Rogel Triglyceride [Mass/Vol] 198 mg/dL Critically high <=150 [facility] Comment on above: Performed By: #### C MP, LIPID, T7, TSH ####[facility] N[address]qjb[address] [place] [address]Dr. Shahbaz Rogel VLDL CALC 39.6 mg/dL Normal [facility] Comment on above: Performed By: #### C MP, LIPID, T7, TSH ####[facility] [address]pn[address] [place] [address]Dr. Shahbaz Rogel PROF 14(COMP METB)on 023 Albumin [Mass/Vol] 4.1 g/dL Normal 3.4-5.0 [facility] Comment on above: Performed By: #### C MP, LIPID, T7, TSH ####[facility] Fxvyvqnxev[address] [place] [address]Dr. Shahbaz Rogel Albumin/Globulin [Mass ratio] 1.0 {ratio} Normal [facility] Comment on above: Performed By: #### C MP, LIPID, T7, TSH ####[facility] Pteekwztku[address] [place] [address]Dr. Shahbaz Rogel ALP [Catalytic activity/Vol] 126 U/L Critically high 46-116 [facility] Comment on above: Performed By: #### C MP, LIPID, T7, TSH ####[facility] [address]bxis[address] [place] [address]Dr. Shahbaz Rogel ALT [Catalytic activity/Vol] 30 U/L Normal 14-59 [facility] Comment on above: Performed By: #### C MP, LIPID, T7, TSH ####[facility] I[address]wiu[address] [place] [address]Dr. Shahbaz Rogel Anion gap [Moles/Vol] 12.3 mmol/L Normal Th [facility] Comment on above: Performed By: #### C MP, LIPID, T7, TSH ####[facility] Yyl[address]hmli[address] [place] [address]Dr. Shahbaz Rogel AST [Catalytic activity/Vol] 25 U/L Normal 15-37 [facility] Comment on above: Performed By: #### C MP, LIPID, T7, TSH ####[facility] [address]mlhnhpcl[address] [place], [place] [address]Dr. Shahbaz Rogel Bilirubin [Mass/Vol] 0.5 mg/dL Normal 0.2-1.0 [facility] Comment on above: Performed By: #### C MP, LIPID, T7, TSH ####[facility] [address]jpwrhl[address] [place], [place] [address]Dr. Shahbaz Rogel Calcium [Mass/Vol] 9.4 mg/dL Normal 8.5-10.1 [facility] Comment on above: Performed By: #### C MP, LIPID, T7, TSH ####[facility] Zolivzzhyv[address] [place], [place] [address]Dr. Shahbaz Rogel Chloride [Moles/Vol] 104 mmol/L Normal 98-107 [facility] Comment on above: Performed By: #### C MP, LIPID, T7, TSH ####[facility] [address]hrxuav[address] [place], [place] [address]Dr. Shahbaz Rogel CO2 [Moles/Vol] 29.6 mmol/L Normal 21.0-32.0 [facility] Comment on above: Performed By: #### C MP, LIPID, T7, TSH ####[facility] Dj[address]uvcyymk[address] [place] [address]Dr. Shahbaz Rogel Creatinine [Mass/Vol] 0.91 mg/dL Normal 0.55-1.02 [facility] Comment on above: Performed By: #### C MP, LIPID, T7, TSH ####[facility] W[address]vku[address] [place] [address]Dr. Shahbaz Rogel EGFR-AF UKRAINIAN >60 Normal >=60 [facility] Comment on above: Performed By: #### C MP, LIPID, T7, TSH ####[facility] [address] [place], [place] [address]Dr. Shahbaz Rogel EGFR-NON AF UKRAINIAN >60 Normal >=60 [facility] Comment on above: Performed By: #### C MP, LIPID, T7, TSH ####[facility] Xubzpubhpi[address] [place], [place] [address]Dr. Shahbaz Rogel Globulin (S) [Mass/Vol] 4.0 g/dL Normal [facility] Comment on above: Performed By: #### C MP, LIPID, T7, TSH ####[facility] [address]vtdfyxo[address] [place], [place] [address]Dr. Shahbaz Rogel Glucose [Mass/Vol] 85 mg/dL Normal 74-106 [facility] Comment on above: Performed By: #### C MP, LIPID, T7, TSH ####[facility] Q[address]rsiinyh[address] [place], [place] [address]Dr. Lilajarrod Rogel Potassium [Moles/Vol] 3.9 mmol/L Normal 3.5-5.1 [facility] Comment on above: Performed By: #### C MP, LIPID, T7, TSH ####[facility] [address]ios[address]xae[address] [place], [place] [address]Dr. Shahbaz Rogel Protein [Mass/Vol] 8.1 g/dL Normal 6.4-8.2 [facility] Comment on above: Performed By: #### C MP, LIPID, T7, TSH ####[facility] [address]xcuk[address]tr[address] [place], [place] [address]Dr. Lilajarrod Rogel Sodium [Moles/Vol] 142 mmol/L Normal 136-145 [facility] Comment on above: Performed By: #### C MP, LIPID, T7, TSH ####[facility] [address]mxzc[address] [place] [id number]. Lilajarrod Rogel Urea nitrogen [Mass/Vol] 9.0 mg/dL Normal 7.0-18.0 [facility] Comment on above: Performed By: #### C MP, LIPID, T7, TSH ####[facility] [address]gxi[address] [place] [id number]. Shahbaz Rogel Urea nitrogen/Creatinine [Mass ratio] 9.9 mg/mg Normal [facility] Comment on above: Performed By: #### C MP, LIPID, T7, TSH ####[facility] O[address]dxs[address] [place] [address]Dr. Shahbaz Rogel TSHon 11-01-2022 TSH 0.045 uIU/mL Critically low 0.358-3.74 0 [facility] Comment on above: Performed By: #### C MP, LIPID, T7, TSH ####[facility] [address]xr[address] [place] [address]Dr. Shahbaz Rogel XR HUMERUS LT MIN 2Von 10-01 XR HUMERUS LT MIN 2V Normal [facility] XR LSPINE 2_3 VIEWSon 2021 XR LSPINE 2_3 VIEWS Normal [facility] XR CHEST 1 Von 08-25-2022 XR CHEST 1 V Normal [facility] ACID FAST SMEAR AND CXon Acid Fast Culture Negative Normal [facility] Comment on above: Result Comment: No a ninfa fast bacilli isolated after 6 weeks. Performed By: #### A FB ####[facility] [address]aw[address] [place] [address]Dr. Shahbaz Rogel Acid Fast Smear Negative Normal [facility] Comment on above: Performed By: #### A FB ####[facility] [address] [place], [place] [address]Dr. Shahbaz Rogel AF[employer] Specimen Processing Concentration Normal [facility] Comment on above: Performed By: #### A FB ####[facility] [address]wr[address]vmfz[address] [place], [place] [address]Dr. Shahbaz Rogel Bacteria identified Anaer cx Nom (Unsp spec)Ordered By: Rodolfo Harley on 08-13-2022 Anaerobic microbial culture No Anaerobes Isolated 3 Days [facility] Basophils Auto (Bld) [#/Vol] Ordered By: Rodolfo Harley on 08-12-2022 Basophils (Bld) [#/Vol] 0.0 10*3/uL 0.0-0.2 [facility] Basophils/100 WBC Auto (Bld) Ordered By: Rodolfo Harley on 08-12-2022 Basophils/100 WBC (Bld) 0.4 % . [facility] Creatinine and Glomerular fi ltration rate.predicted panel (S/P/Bld)Ordered By: Rodolfo Harley on 08-12-2022 Creatinine [Mass/Vol] 0.74 mg/dL 0.44-1.03 [facility] Eosinophils Auto (Bld) [#/Vo l]Ordered By: Rodolfo Harley on 08-12-2022 Eosinophils (Bld) [#/Vol] 0.0 10*3/uL 0.0-0.45 [facility] Eosinophils/100 WBC Auto (Bl d)Ordered By: Rodolfo Harley on 08-12-2022 Eosinophils/100 WBC (Bld) 0.0 % . [facility] Erythrocyte distribution wid th Auto (RBC) [Ratio]Ordered By: Rodolfo Harley on 08-12-2022 Erythrocyte distribution width (RBC) [Ratio] 14.2 % 11.9-15.3 [facility] Estimated glomerular filtrat ion rate (GFR) non- AmericanOrdered By: Rodolfo Harley on 08-12-2022 GFR/1.73 sq M.predicted among non-blacks MDRD (S/P/Bld) [Vol rate/Area] > 60 mL/Min [facility] Hematocrit Auto (Bld) [Volum e fraction]Ordered By: Rodolfo Harley on 08-12-2022 Hematocrit (Bld) [Volume fraction] 38.0 % 34.0-46.4 [facility] Hemoglobin [Mass/volume] in BloodOrdered By: Rodolfo Harley on 08-12-2022 Hemoglobin (Bld) [Mass/Vol] 12.5 g/dL 11.8-15.4 [facility] Laboratory - Hematology and Cell countsOrdered By: Rodolfo Harley on 08-12-2022 Nucleated RBC/100 WBC (Bld) [Ratio] 0.1 % 0-0.5 [facility] Leukocytes [#/volume] in Blo od by Automated countOrdered By: Rodolfo Harley on 08-12-2022 WBC (Bld) [#/Vol] 5.8 10*3/uL 4.5-11.0 [facility] Lymphocytes Auto (Bld) [#/Vo l]Ordered By: Rodolfo Harley on 08-12-2022 Lymphocytes (Bld) [#/Vol] 0.7 10*3/uL 1.00-4.8 [facility] Lymphocytes/100 WBC Auto (Bl d)Ordered By: Rodolfo Harley on 08-12-2022 Lymphocytes/100 WBC (Bld) 11.4 % . [facility] MCH Auto (RBC) [Entitic mass ]Ordered By: Rodolfo Harley on 08-12-2022 MCH (RBC) [Entitic mass] 28.1 pg 24.7-34.3 [facility] MCHC Auto (RBC) [Mass/Vol]Or dered By: Rodolfo Harley on 08-12-2022 MCHC (RBC) [Mass/Vol] 32.9 g/dL 32.0-35.0 [facility] MCV Auto (RBC) [Entitic vol] Ordered By: Rodolfo Harley on 08-12-2022 MCV (RBC) [Entitic vol] 85.4 fL 80-100 [facility] Monocytes Auto (Bld) [#/Vol] Ordered By: Rodolfo Harley on 08-12-2022 Monocytes (Bld) [#/Vol] 0.3 10*3/uL 0.0-0.8 [facility] Monocytes/100 WBC Auto (Bld) Ordered By: Rodolfo Harley on 08-12-2022 Monocytes/100 WBC (Bld) 4.8 % . [facility] Neutrophils Auto (Bld) [#/Vo l]Ordered By: Rodolfo Harley on 08-12-2022 Neutrophils (Bld) [#/Vol] 4.8 10*3/uL 1.8-7.7 [facility] Neutrophils/100 WBC Auto (Bl d)Ordered By: Rodolfo Harley on 08-12-2022 Neutrophils/100 WBC (Bld) 83.4 % . [facility] No Panel InformationOrdered By: Rodolfo Harley on 08-12-2022 Estimated GFR () > 60 mL/Min [facility] Comment on above: GFR estimated refere nce range: According to KDOQI guidelines, <60 ml/min/1.73m2 is sufficient to diagnose a patient with chronic kidney disease. Pharmacy Creatinine Clearance (Chem 59.45 [facility] Platelet mean volume Auto (B ld) [Entitic vol]Ordered By: Rodolfo Harley on 08-12-2022 Platelet mean volume (Bld) [Entitic vol] 7.9 fL 6.3-10.7 [facility] Platelets Auto (Bld) [#/Vol] Ordered By: Rodolfo Harley on 08-12-2022 Platelets (Bld) [#/Vol] 196 10*3/uL 150-450 [facility] RBC Auto (Bld) [#/Vol]Ordere d By: Rodolfo Harley on 08-12-2022 RBC (Bld) [#/Vol] 4.45 10*6/uL 3.60-5.00 [facility] Serum or plasma anion gap de terminationOrdered By: Rodolfo Harley on 08-12-2022 Anion gap [Moles/Vol] 7.5 mmol/L 6.0-15.0 [facility] Serum or plasma calcium dagoberto urement (mass/volume)Ordered By: Rodolfo Harley on 08-12-2022 Calcium [Mass/Vol] 8.7 mg/dL 8.2-10.2 [facility] Serum or plasma chloride anahy surement (moles/volume)Ordered By: Rodolfo Harley on 08-12-2022 Chloride [Moles/Vol] 108 mmol/L 95-114 [facility] Serum or plasma glucose dagoberto urement (mass/volume)Ordered By: Rodolfo Harley on 08-12-2022 Glucose [Mass/Vol] 133 mg/dL 70-100 [facility] Comment on above: ADA recommended refe rence rangeRandom Glucose Reference Range is dependent on time and content of last meal. Glucose of more than 200 mg/dL in a nonstressed, ambulatory subject supports the diagnosis of Diabetes Mellitus. Serum or plasma potassium me asurement (moles/volume)Ordered By: Rodolfo Harley on 08-12-2022 Potassium [Moles/Vol] 3.7 mmol/L 3.5-5.1 [facility] Serum or plasma sodium measu rement (moles/volume)Ordered By: Rodolfo Harley on 08-12-2022 Sodium [Moles/Vol] 139 mmol/L 136-146 [facility] Serum or plasma total carbon dioxide measurement (moles/volume)Ordered By: Rodolfo Harley on 08-12-2022 CO2 [Moles/Vol] 27.2 mmol/L 22.0-30.0 [facility] Serum or plasma urea nitroge n measurement (mass/volume)Ordered By: Rodolfo Harley on 08-12-2022 Urea nitrogen [Mass/Vol] 14 mg/dL 9-23 [facility] ABO and Rh group post transf usion reaction Nom (Bld)Ordered By: Rodolfo Harley on 08-10-2022 Microscopic observation Gram stain Nom (Unsp spec) [facility] AFB cultureOrdered By: Sissy Harley on 08-10-2022 Mycobacterium sp identified Org specific cx Nom (Unsp spec) [facility] AFB smearOrdered By: Rodolfo Harley on 08-10-2022 Microscopic observation Smear Nom (Unsp spec) [facility] Aerobic cultureOrdered By: Margie Harley on 08-10-2022 Bacteria identified Aer cx Nom (Unsp spec) No Growth 2 Days [facility] Anaerobic cultureOrdered By: Rodolfo Harley on 08-10-2022 Bacteria identified Anaer cx Nom (Unsp spec) No Anaerobes Isolated 3 Days [facility] Arterial blood standard base excess determination by calculationOrdered By: Rodolfo Harley on 08-10-2022 Base excess standard Calc (BldA) [Moles/Vol] 5 mmol/L -2-3 [facility] Blood carbon dioxide, total measurement by calculation (moles/volume)Ordered By: Rodolfo Harley on 08-10-2022 CO2 Calc (Bld) [Moles/Vol] 30 mmol/L 23-29 [facility] CT biopsyOrdered By: Rodolfo Harley on 08-10-2022 Hematocrit (Bld) [Volume fraction] 40.0 % 38.0-51.0 [facility] Fungal cultureOrdered By: Rolanda Harley on 08-10-2022 Fungus identified Cx Nom (Unsp spec) [facility] Glucose Glucometer (BldC) [M ass/Vol]Ordered By: Rodolfo Harley on 08-10-2022 Glucose [Mass/Vol] 126 mg/dL 70-105 [facility] Gram stain for investigation of transfusion reactionOrdered By: Rodolfo Harley on 08-10-2022 Microscopic observation Gram stain Nom (Unsp spec) [facility] Hemoglobin Calc (Bld) [Mass/ Vol]Ordered By: Rodolfo Harley on 08-10-2022 Hemoglobin (Bld) [Mass/Vol] 13.6 g/dL 12.0-17.0 [facility] Monocyte %Ordered By: Jean Harley on 08-10-2022 Monocyte % 39.9 mm[Hg] 35-51 [facility] Monocyte % 45 mm[Hg] 80-105 [facility] No Panel InformationOrdered By: Rodolfo Harley on 08-10-2022 Chlamydia psittaci Antibodies <1:10 Neg:<1:10 [facility] Comment on above: This test was develo ped and its performance characteristicsdetermined by [facility]. It has not been cleared or approvedby the Food and Drug Administration. The FDA hasdetermined that such clearance or approval is notnecessary.Performed at: [address] [id number] Director: Shelly Vargas MD, Phone: [phone] Potassium (Bld) [Moles/Vol]O rdered By: Rodolfo Harley on 08-10-2022 Potassium [Moles/Vol] 3.8 mmol/L 3.5-4.9 [facility] Sodium (Bld) [Moles/Vol]Orde red By: Rodolfo Harley on 08-10-2022 Sodium [Moles/Vol] 141 mmol/L 138-146 [facility] Whole blood bicarbonate dagoberto urementOrdered By: Rodolfo Harley on 08-10-2022 HCO3 (Bld) [Moles/Vol] 29.1 mmol/L 22.0-28.0 [facility] Whole blood ionized calcium measurement (moles/volume)Ordered By: Rodolfo Harley on 08-10-2022 Calcium.ionized (Bld) [Moles/Vol] 1280 mmol/L 1.12-1.32 [facility] Whole blood oxygen saturatio n measurementOrdered By: Rodolfo Harley on 08-10-2022 Oxygen saturation in Blood 84 % 95-98 [facility] Comment on above: Reference ranges ref lect baseline specimens only Whole blood pHOrdered By: Rolanda Harley on 08-10-2022 pH (Bld) 7.470 Units 7.31-7.45 [facility] Urine culture routineOrdered By: Rodolfo Harley on 08-07-2022 Bacteria identified Cx Nom (U) 2 Days [facility] Activated partial thrombopla stin time (aPTT) in platelet poor plasma by coagulation aOrdered By: Rodolfo Hraley on 08-05-2022 aPTT Coag (PPP) [Time] 35.9 s 25.1-36.5 [facility] Basophils Auto (Bld) [#/Vol] Ordered By: Rodolfo Harley on 08-05-2022 Basophils (Bld) [#/Vol] 0.0 10*3/uL 0.0-0.2 [facility] Basophils/100 WBC Auto (Bld) Ordered By: Rodolfo Harley on 08-05-2022 Basophils/100 WBC (Bld) 0.5 % . [facility] [facility] Body fluid albumin measureme nt (mass/volume)Ordered By: Rodolfo Harley on 08-05-2022 Albumin (Body fld) [Mass/Vol] 3.8 g/dL 3.2-5.5 [facility] COVID-19 Positive/NegativeOr dered By: Rodolfo Harley on 08-05-2022 SARS-CoV-2 (COVID-19) N gene PAVAN+probe Ql (Resp) Negative Negative [facility] Comment on above: Testing for SARS-CoV -2 by RT-PCRThis test was developed and its performance characteristics determined by [employer] ([employer]) and validated at the [facility]. This test has not been [...] on 08-05-2022 Creatinine [Mass/Vol] 0.97 mg/dL 0.44-1.03 [facility] Eosinophils Auto (Bld) [#/Vo l]Ordered By: Rodolfo Harley on 08-05-2022 Eosinophils (Bld) [#/Vol] 0.2 10*3/uL 0.0-0.45 [facility] Eosinophils/100 WBC Auto (Bl d)Ordered By: Rodolfo Harley on 08-05-2022 Eosinophils/100 WBC (Bld) 4.9 % . [facility] Erythrocyte distribution wid th Auto (RBC) [Ratio]Ordered By: Rodolfo Harley on 08-05-2022 Erythrocyte distribution width (RBC) [Ratio] 14.5 % 11.9-15.3 [facility] Estimated glomerular filtrat ion rate (GFR) non- AmericanOrdered By: Rodolfo Harley on 08-05-2022 GFR/1.73 sq M.predicted among non-blacks MDRD (S/P/Bld) [Vol rate/Area] 59 mL/Min [facility] FUNGAL CULTUREon 08-05-2022 Fungus (Mycology) Culture Final report Abnormal [facility] Comment on above: Performed By: #### C XFUN ####[facility] [address] [place] [id number]. Shahbaz Rogel Fungus Stain Final report Normal [facility] Comment on above: Performed By: #### C XFUN ####[facility] [address] [place] [id number]. Shahbaz Rogel Result 1 Comment Abnormal [facility] Comment on above: Result Comment: MILADYS/ Calcofluor preparation: no fungus observed. Performed By: #### C XFUN ####[facility] [address] [place] [address]Dr. Shahbaz Rogel Result Comment: Aspe rgillus versicolor Result 2 Penicillium species Abnormal [facility] Comment on above: Performed By: #### C XFUN ####[facility] [address] [place] [address]Dr. Shahbaz Rogel Globulin Calc (S) [Mass/Vol] Ordered By: Rodolfo Harley on 08-05-2022 Globulin (S) [Mass/Vol] 2.9 g/dL [facility] Hematocrit Auto (Bld) [Volum e fraction]Ordered By: Rodolfo Harley on 08-05-2022 Hematocrit (Bld) [Volume fraction] 43.3 % 34.0-46.4 [facility] Hemoglobin [Mass/volume] in BloodOrdered By: Rodolfo Harley on 08-05-2022 Hemoglobin (Bld) [Mass/Vol] 14.3 g/dL 11.8-15.4 [facility] Laboratory - CoagulationOrde red By: Rodolfo Harley on 08-05-2022 PT Coag (PPP) [Time] 12.4 s 9.0-12.9 [facility] Laboratory - Hematology and Cell countsOrdered By: Rodolfo Harley on 08-05-2022 Nucleated RBC/100 WBC (Bld) [Ratio] 0.0 % 0-0.5 [facility] Leukocytes [#/volume] in Blo od by Automated countOrdered By: Rodolfo Harley on 08-05-2022 WBC (Bld) [#/Vol] 3.4 10*3/uL 4.5-11.0 [facility] Lymphocytes Auto (Bld) [#/Vo l]Ordered By: Rodolfo Harley on 08-05-2022 Lymphocytes (Bld) [#/Vol] 0.9 10*3/uL 1.00-4.8 [facility] Lymphocytes/100 WBC Auto (Bl d)Ordered By: Rodolfo Harley on 08-05-2022 Lymphocytes/100 WBC (Bld) 27.2 % . [facility] MCH Auto (RBC) [Entitic mass ]Ordered By: Rodolfo Harley on 08-05-2022 MCH (RBC) [Entitic mass] 28.4 pg 24.7-34.3 [facility] MCHC Auto (RBC) [Mass/Vol]Or dered By: Rodolfo Harley on 08-05-2022 MCHC (RBC) [Mass/Vol] 33.1 g/dL 32.0-35.0 [facility] MCV Auto (RBC) [Entitic vol] Ordered By: Rodolfo Harley on 08-05-2022 MCV (RBC) [Entitic vol] 85.9 fL 80-100 [facility] Monocytes Auto (Bld) [#/Vol] Ordered By: Rodolfo Harley on 08-05-2022 Monocytes (Bld) [#/Vol] 0.3 10*3/uL 0.0-0.8 [facility] Monocytes/100 WBC Auto (Bld) Ordered By: Rodolfo Harley on 08-05-2022 Monocytes/100 WBC (Bld) 7.5 % . [facility] Neutrophils Auto (Bld) [#/Vo l]Ordered By: Rodolfo Harley on 08-05-2022 Neutrophils (Bld) [#/Vol] 2.0 10*3/uL 1.8-7.7 [facility] Neutrophils/100 WBC Auto (Bl d)Ordered By: Rodolfo Harley on 08-05-2022 Neutrophils/100 WBC (Bld) 59.9 % . [facility] No Panel InformationOrdered By: Rodolfo Harley on 08-05-2022 Estimated GFR () > 60 mL/Min [facility] Comment on above: GFR estimated refere nce range: According to KDOQI guidelines, <60 ml/min/1.73m2 is sufficient to diagnose a patient with chronic kidney disease. Pharmacy Creatinine Clearance (Chem N/A [facility] Platelet mean volume Auto (B ld) [Entitic vol]Ordered By: Rodolfo Harley on 08-05-2022 Platelet mean volume (Bld) [Entitic vol] 8.1 fL 6.3-10.7 [facility] Platelet poor plasma interna tional normalized ratio (INR) by coagulation assay (relatOrdered By: Rodolfo Harley on 08-05-2022 INR Coag (PPP) [Relative time] 1.1 {INR} [facility] Comment on above: INR Therapeutic [...] (Bld) [#/Vol] 243 10*3/uL 150-450 [facility] Protein [Mass/volume] in Ser um or PlasmaOrdered By: Rodolfo Harley on 08-05-2022 Protein [Mass/Vol] 6.7 g/dL 6.1-7.9 [facility] RBC Auto (Bld) [#/Vol]Ordere d By: Rodolfo Harley on 08-05-2022 RBC (Bld) [#/Vol] 5.04 10*6/uL 3.60-5.00 [facility] Serum or plasma alanine snyder otransferase measurement without P-5'-P (enzymatic activiOrdered By: Rodolfo Harley on 08-05-2022 ALT No additional P-5'-P [Catalytic activity/Vol] 14 U/L 10-60 [facility] Serum or plasma albumin/glob ulin mass ratioOrdered By: Rodolfo Harley on 08-05-2022 Albumin/Globulin [Mass ratio] 1.3 {ratio} [facility] Serum or plasma alkaline sruthi sphatase measurement (enzymatic activity/volume)Ordered By: Rodolfo Harley on 08-05-2022 ALP [Catalytic activity/Vol] 91 U/L 32-92 [facility] Serum or plasma anion gap de terminationOrdered By: Rodolfo Harley on 08-05-2022 Anion gap [Moles/Vol] 14.3 mmol/L 6.0-15.0 [facility] Serum or plasma aspartate am inotransferase measurement (enzymatic activity/volume)Ordered By: Rodolfo Harley on 08-05-2022 AST [Catalytic activity/Vol] 21 U/L 10-42 [facility] Serum or plasma calcium dagoberto urement (mass/volume)Ordered By: Rodolfo Harley on 08-05-2022 Calcium [Mass/Vol] 9.5 mg/dL 8.2-10.2 [facility] Serum or plasma chloride anahy surement (moles/volume)Ordered By: Rodolfo Harley on 08-05-2022 Chloride [Moles/Vol] 102 mmol/L 95-114 [facility] Serum or plasma glucose dagoberto urement (mass/volume)Ordered By: Rodolfo Harley on 08-05-2022 Glucose [Mass/Vol] 76 mg/dL 70-100 [facility] Comment on above: ADA recommended refe rence rangeRandom Glucose Reference Range is dependent on time and content of last meal. Glucose of more than 200 mg/dL in a nonstressed, ambulatory subject supports the diagnosis of Diabetes Mellitus. Serum or plasma potassium me asurement (moles/volume)Ordered By: Rodolfo Harley on 08-05-2022 Potassium [Moles/Vol] 3.8 mmol/L 3.5-5.1 [facility] Serum or plasma sodium measu rement (moles/volume)Ordered By: Rodolfo Harley on 08-05-2022 Sodium [Moles/Vol] 138 mmol/L 136-146 [facility] Serum or plasma total biliru bin measurement (mass/volume)Ordered By: Rodolfo Harley on 11-04-2022 Bilirubin [Mass/Vol] 0.7 mg/dL 0.3-1.2 [facility] Serum or plasma total carbon dioxide measurement (moles/volume)Ordered By: Rodolfo Harley on 08-05-2022 CO2 [Moles/Vol] 25.5 mmol/L 22.0-30.0 [facility] Serum or plasma urea nitroge n measurement (mass/volume)Ordered By: Rodolfo Harley on 08-05-2022 Urea nitrogen [Mass/Vol] 12 mg/dL 06-24 [facility] Urine culture routineOrdered By: Rodolfo Harley on 08-05-2022 Bacteria identified Cx Nom (U) 2 Days [facility] XR ANKLE LT MIN 3 Von 2021 XR ANKLE LT MIN 3 V Normal [facility] BNPon 07-06-2022 Natriuretic peptide B (Bld) [Mass/Vol] 843.0 pg/mL Normal <=900.0 [facility] Comment on above: Performed By: #### B MACHINE CEMENTER AND FOLDER, CRP, CMP ####[facility] [address] [place], [place] [address]Dr. Shahbaz Rogel CBC W MANUAL DIFFon 07-06-20 22 ATYPICAL LYMPH # Normal [facility] Comment on above: Performed By: #### C CAIN ####[facility] [address] [place], [place] [address]Dr. Shahbaz Rogel ATYPICAL LYMPH % Normal [facility] Comment on above: Performed By: #### C CAIN ####[facility] [address] [place] [address]Dr. Shahbaz Rogel BAND # 0.0 103/ul Normal 0.0-0.3 [facility] Comment on above: Performed By: #### C CAIN ####[facility] [address]bcion[address] [place] [address]Dr. Shahbaz Rogel BAND % 0 % Normal 0-5 [facility] Comment on above: Performed By: #### C CAIN ####[facility] [address] [place], [place] [address]Dr. Shahbaz Rogel BASOM # 0.00 103/ul Normal 0.00-0.10 [facility] Comment on above: Performed By: #### C CAIN ####[facility] [address]ins[address] [place] [address]Dr. Shahbaz Rogel BASOM % 0.0 % Critically low 0.2-2.0 [facility] Comment on above: Performed By: #### C CAIN ####[facility] [address] [place] [address]Dr. Shahbaz Rogel BLAST # Normal [facility] Comment on above: Performed By: #### C CAIN ####[facility] Fanwfggzcy[address] [place] [address]Dr. Shahbaz Rogel BLAST % Normal [facility] Comment on above: Performed By: #### C CAIN ####[facility] [address] [place], [place] [address]Dr. Shahbaz Rogel CORRECTED WBC Normal 4.0-11.0 [facility] Comment on above: Performed By: #### C CAIN ####[facility] [address] [place], [place] [address]Dr. Shahbaz Rogel EOS # 0.00 103/ul Normal 0.00-0.70 [facility] Comment on above: Performed By: #### C CAIN ####[facility] [address]ym[address] [place], [place] [address]Dr. Shahbaz Rogel EOS% 0.0 % Critically low 0.9-7.0 [facility] Comment on above: Performed By: #### C CAIN ####[facility] [address]qoy[address] [place], [place] [address]Dr. Shahbaz Rogel HCT 40.3 % Normal 36.0-48.0 [facility] Comment on above: Performed By: #### C CAIN ####[facility] [address] [place], [place] [address]Dr. Shahbaz Rogel HGB 12.7 g/dl Normal 12.0-16.0 [facility] Comment on above: Performed By: #### C CAIN ####[facility] [address]xybi[address] [place], [place] [address]Dr. Shahbaz Rogel LYMPHM # 0.41 103/ul Critically low 1.20-3.80 [facility] Comment on above: Performed By: #### C CAIN ####[facility] [address] [place] [address]Dr. Shahbaz Rogel LYMPHM% 7.0 % Critically low 20.5-60.0 [facility] Comment on above: Performed By: #### C CAIN ####[facility] W[address]mgc[address] [place] [address]Dr. Shahbaz Rogel MCH 28.0 pg Normal 26.7-34.0 [facility] Comment on above: Performed By: #### C CAIN ####[facility] [address]txx[address] [place], [place] [address]Dr. Shahbaz Rogel MCHC 31.5 g/dl Normal 29.9-35.2 [facility] Comment on above: Performed By: #### C CAIN ####[facility] [address] [place], [place] [address]Dr. Shahbaz Rogel MCV 89.0 fL Normal 81.0-99.0 [facility] Comment on above: Performed By: #### C CAIN ####[facility] [address]af[address] [place], [place] [address]Dr. Shahbaz Rogel METAMYELOCYTE # Normal [facility] Comment on above: Performed By: #### C CAIN ####[facility] [address] [place], [place] [address]Dr. Shahbaz Rogel METAMYELOCYTE % Normal [facility] Comment on above: Performed By: #### C CAIN ####[facility] [address]ocsek[address] [place], [place] [address]Dr. Shahbaz Rogel MONOM# 0.00 103/ul Critically low 0.30-0.80 [facility] Comment on above: Performed By: #### C CAIN ####[facility] [address] [place], [place] [address]Dr. Shahbaz Rogel MONOM% 0.0 % Critically low 1.7-12.0 [facility] Comment on above: Performed By: #### C CAIN ####[facility] [address]zy[address] [place] [id number]. Shahbaz Rogel MPV 9.8 fL Normal 9.5-13.5 [facility] Comment on above: Performed By: #### C CAIN ####[facility] [address] [place] [id number]. Shahbaz Rogel MYELOCYTE # Normal [facility] Comment on above: Performed By: #### C CAIN ####[facility] [address]io[address] [place] [phone]. Shahbaz Rogel MYELOCYTE % Normal [facility] Comment on above: Performed By: #### C CAIN ####[facility] [address]vksfp[address] [place] [address]Dr. Shahbaz Rogel NRBC Normal [facility] Comment on above: Performed By: #### C CAIN ####[facility] S[address]fej[address] [place] [phone]. Shahbaz Rogel PLT 187 103/ul Normal 150-450 [facility] Comment on above: Performed By: #### C CAIN ####[facility] Al[address]zexan[address] [place] [phone]. Shahbaz Rogel RBC 4.53 106/ul Normal 4.20-5.40 [facility] Comment on above: Performed By: #### C CAIN ####[facility] [address]qmozwm[address] [place] [phone]. Shahbaz Rogel RDW 13.3 % Normal 11.0-15.0 [facility] Comment on above: Performed By: #### C CAIN ####[facility] [address] [place] [id number]. Shahbaz Rogel SEG # 5.49 103/ul Normal 1.40-6.50 [facility] Comment on above: Performed By: #### C CAIN ####[facility] [address]vt[address] [place] [id number]. Shahbaz Rogel SEG % 93.0 % Critically high 43.0-75.0 [facility] Comment on above: Performed By: #### C CAIN ####[facility] [address] [place] [address]Dr. Shahbaz Rogel WBC 5.9 103/ul Normal 4.0-11.0 [facility] Comment on above: Performed By: #### C BCMAN ####[facility] [address]fx[address] [place] [address]Dr. Shahbaz Rogel CRPon 07-06-2022 CRP [Mass/Vol] mg/L Normal <=1.0 [facility] Comment on above: Performed By: #### B MACHINE CEMENTER AND FOLDER, CRP, CMP ####[facility] [address]fgup[address] [place] [address]Dr. Shahbaz Rogel PROF 14(COMP METB)on 022 Albumin [Mass/Vol] 3.4 g/dL Normal 3.4-5.0 [facility] Comment on above: Performed By: #### B MACHINE CEMENTER AND FOLDER, CRP, CMP ####[facility] [address]zotmfl[address] [place], [place] [address]Dr. Shahbaz Rogel Albumin/Globulin [Mass ratio] 1.0 {ratio} Normal [facility] Comment on above: Performed By: #### B MACHINE CEMENTER AND FOLDER, CRP, CMP ####[facility] Ijvdxggacv[address] [place] [address]Dr. Shahbaz Rogel ALP [Catalytic activity/Vol] 92 U/L Normal 46-116 [facility] Comment on above: Performed By: #### B MACHINE CEMENTER AND FOLDER, CRP, CMP ####[facility] R[address]ugtlw[address] [place] [address]Dr. Shahbaz Rogel ALT [Catalytic activity/Vol] 21 U/L Normal 14-59 [facility] Comment on above: Performed By: #### B MACHINE CEMENTER AND FOLDER, CRP, CMP ####[facility] Yrtszfppsn[address] [place] [address]Dr. Shahbaz Rogel Anion gap [Moles/Vol] 13.4 mmol/L Normal [facility] Comment on above: Performed By: #### B MACHINE CEMENTER AND FOLDER, CRP, CMP ####[facility] Pbhdurtsbe[address] [place] [address]Dr. Shahbaz Rogel AST [Catalytic activity/Vol] 16 U/L Normal 15-37 [facility] Comment on above: Performed By: #### B MACHINE CEMENTER AND FOLDER, CRP, CMP ####[facility] Hssdwfulfw[address] [place] [address]Dr. Shahbaz Rogel Bilirubin [Mass/Vol] 0.2 mg/dL Normal 0.2-1.0 [facility] Comment on above: Performed By: #### B MACHINE CEMENTER AND FOLDER, CRP, CMP ####[facility] [address] [place] [address]Dr. Shahbaz Rogel Calcium [Mass/Vol] 9.3 mg/dL Normal 8.5-10.1 [facility] Comment on above: Performed By: #### B MACHINE CEMENTER AND FOLDER, CRP, CMP ####[facility] Ly[address]zonz[address] [place], [place] [address]Dr. Shahbaz Rogel Chloride [Moles/Vol] 105 mmol/L Normal 98-107 [facility] Comment on above: Performed By: #### B MACHINE CEMENTER AND FOLDER, CRP, CMP ####[facility] X[address]vsxontf[address] [place], [place] [address]Dr. Shahbaz Rogel CO2 [Moles/Vol] 23.2 mmol/L Normal 21.0-32.0 [facility] Comment on above: Performed By: #### B MACHINE CEMENTER AND FOLDER, CRP, CMP ####[facility] [address]qxyi[address] [place], [place] [address]Dr. Shahbaz Rogel Creatinine [Mass/Vol] 1.23 mg/dL Critically high 0.55-1.02 [facility] Comment on above: Performed By: #### B MACHINE CEMENTER AND FOLDER, CRP, CMP ####[facility] Cycim[address]obm[address] [place], [place] [address]Dr. Shahbaz Rogel EGFR-AF UKRAINIAN 55 mL/min/1.73m2 Critically low >=60 [facility] Comment on above: Performed By: #### B MACHINE CEMENTER AND FOLDER, CRP, CMP ####[facility] [address]az[address]ob[address] [place], [place] [address]Dr. Shahbaz Rogel EGFR-NON AF UKRAINIAN 45 mL/min/1.73m2 Critically low >=60 [facility] Comment on above: Performed By: #### B MACHINE CEMENTER AND FOLDER, CRP, CMP ####[facility] Ndstzdxzyp[address] [place] [address]Dr. Shahbaz Rogel Globulin (S) [Mass/Vol] 3.3 g/dL Normal [facility] Comment on above: Performed By: #### B MACHINE CEMENTER AND FOLDER, CRP, CMP ####[facility] Y[address]llbnlmp[address] [place] [address]Dr. Shahbaz Rogel Glucose [Mass/Vol] 171 mg/dL Critically high 74-106 [facility] Comment on above: Performed By: #### B MACHINE CEMENTER AND FOLDER, CRP, CMP ####[facility] [address]ucgrjqany[address] [place], [place] [address]Dr. Shahbaz Rogel Potassium [Moles/Vol] 3.6 mmol/L Normal 3.5-5.1 [facility] Comment on above: Performed By: #### B MACHINE CEMENTER AND FOLDER, CRP, CMP ####[facility] O[address]zgtemlx[address] [place], [place] [address]Dr. Shahbaz Rogel Protein [Mass/Vol] 6.7 g/dL Normal 6.4-8.2 [facility] Comment on above: Performed By: #### B MACHINE CEMENTER AND FOLDER, CRP, CMP ####[facility] [address]udczo[address] [place], [place] [address]Dr. Shahbaz Rogel Sodium [Moles/Vol] 138 mmol/L Normal 136-145 [facility] Comment on above: Performed By: #### B MACHINE CEMENTER AND FOLDER, CRP, CMP ####[facility] X[address]xuyljdz[address] [place], [place] [address]Dr. Shahbaz Rogel Urea nitrogen [Mass/Vol] 21.0 mg/dL Critically high 7.0-18.0 [facility] Comment on above: Performed By: #### B MACHINE CEMENTER AND FOLDER, CRP, CMP ####[facility] [address]uwzyhn[address] [place], [place] [address]Dr. Shahbaz Rogel Urea nitrogen/Creatinine [Mass ratio] 17.1 mg/mg Normal [facility] Comment on above: Performed By: #### B MACHINE CEMENTER AND FOLDER, CRP, CMP ####[facility] [address]ljjy[address] [place], [place] [address]Dr. Shahbaz Rogel XR CHEST 2 Von 07-06-2022 XR CHEST 2 V Normal [facility] BNPon 07-05-2022 Natriuretic peptide B (Bld) [Mass/Vol] 83.0 pg/mL Normal <=900.0 [facility] Comment on above: Performed By: #### C RP, CMP, BNP ####[facility] Y[address]pfvxghj[address] [place] [address]Dr. Shahbaz Juan F CBC AUTO DIFFon 07-05-2022 BASO # 0.0 103/ul Normal 0.0-0.1 [facility] Comment on above: Performed By: #### C BC ####[facility] [address]ys[address] [place], [place] [address]Dr. Lilajarrod Rogel Basophils/100 WBC (Bld) 0.4 % Normal 0.2-2.0 [facility] Comment on above: Performed By: #### C BC ####[facility] [address]quo[address] [place], [place] [address]Dr. Lilajarrod Rogel EO # 0.1 103/ul Normal 0.0-0.7 [facility] Comment on above: Performed By: #### C BC ####[facility] [address] [place], [place] [address]Dr. Lilajarrod Rogel Eosinophils/100 WBC (Bld) 2.9 % Normal 0.9-7.0 [facility] Comment on above: Performed By: #### C BC ####[facility] [address]flf[address] [place], [place] [address]Dr. Shahbaz Rogel Erythrocyte distribution width (RBC) [Ratio] 13.4 % Normal 11.0-15.0 [facility] Comment on above: Performed By: #### C BC ####[facility] [address]xfzg[address] [place], [place] [address]Dr. Shahbaz Rogel Hematocrit (Bld) [Volume fraction] 41.7 % Normal 36.0-48.0 [facility] Comment on above: Performed By: #### C BC ####[facility] [address]aphir[address] [place], [place] [address]Dr. Lilajarrod Rogel Hemoglobin (Bld) [Mass/Vol] 12.9 g/dL Normal 12.0-16.0 [facility] Comment on above: Performed By: #### C BC ####[facility] [address] [place] [id number]. Shahbaz Rogel IG # 0.00 10e3/ul Normal 0.00-0.03 [facility] Comment on above: Performed By: #### C BC ####[facility] [address]beav[address] [place] [phone]. Shahbaz Rogel IG % 0.0 % Normal 0.0-0.5 [facility] Comment on above: Performed By: #### C BC ####[facility] [address]wb[address] [place] [address]Dr. Shahbaz Rogel LYMPH # 1.5 103/ul Normal 1.2-3.8 [facility] Comment on above: Performed By: #### C BC ####[facility] [address] [place], [place] [address]Dr. Shahbaz Rogel Lymphocytes/100 WBC (Bld) 32.9 % Normal 20.5-60.0 [facility] Comment on above: Performed By: #### C BC ####[facility] X[address] [place] [address]Dr. Shahbaz Rogel MANUAL DIFF REQ NO Normal [facility] Comment on above: Performed By: #### C BC ####[facility] [address]zux[address] [place], [place] [address]Dr. Shahbaz Rogel MCH (RBC) [Entitic mass] 28.0 pg Normal 26.7-34.0 [facility] Comment on above: Performed By: #### C BC ####[facility] [address]mtw[address] [place], [place] [address]Dr. Shahbaz Rogel MCHC (RBC) [Mass/Vol] 30.9 g/dL Normal 29.9-35.2 [facility] Comment on above: Performed By: #### C BC ####[facility] [address]bnqpi[address] [place] [address]Dr. Shahbaz Rogel MCV (RBC) [Entitic vol] 90.5 fL Normal 81.0-99.0 [facility] Comment on above: Performed By: #### C BC ####[facility] [address]jarjda[address] [place] [phone]. Shahbaz Rogel MONO # 0.4 103/ul Normal 0.3-0.8 [facility] Comment on above: Performed By: #### C BC ####[facility] [address]wncamwf[address] [place] [phone]. Shahbaz Rogel Monocytes/100 WBC (Bld) 8.0 % Normal 1.7-12.0 [facility] Comment on above: Performed By: #### C BC ####[facility] [address]dmfvase[address] [place] [id number]. Shahbaz Rogel NEUT # 2.5 103/ul Normal 1.4-6.5 [facility] Comment on above: Performed By: #### C BC ####[facility] G[address]zfopqosm[address] [place] [phone]. Shahbaz Rogel Neutrophils/100 WBC (Bld) 55.8 % Normal 43.0-75.0 [facility] Comment on above: Performed By: #### C BC ####[facility] [address]jn[address] [place] [phone]. Shahabz Rogel Platelet mean volume (Bld) [Entitic vol] 9.7 fL Normal 9.5-13.5 [facility] Comment on above: Performed By: #### C BC ####[facility] [address] [place] [phone]. Shahbaz Rogel PLT 158 103/ul Normal 150-450 [facility] Comment on above: Performed By: #### C BC ####[facility] [address]idas[address] [place] [phone]. Shahbaz Rogel RBC 4.61 106/ul Normal 4.20-5.40 [facility] Comment on above: Performed By: #### C BC ####[facility] Yds[address]idickm[address] [place] [address]Dr. Shahbaz Rogel WBC 4.5 103/ul Normal 4.0-11.0 [facility] Comment on above: Performed By: #### C BC ####[facility] [address] [place], [place] [id number]. Shahbaz Rogel CRPon 07-05-2022 CRP [Mass/Vol] mg/L Normal <=1.0 [facility] Comment on above: Performed By: #### C RP, CMP, BNP ####[facility] [address] [place] [address]Dr. Shahbaz Rogel ECHO LIMITED STUDYon ECHO LIMITED STUDY Normal [facility] PROF 14(COMP METB)on Albumin [Mass/Vol] 3.2 g/dL Critically low 3.4-5.0 [facility] Comment on above: Performed By: #### C RP, CMP, BNP ####[facility] F[address]xbsmvxiv[address] [place] [address]Dr. Shahbaz Rogel Albumin/Globulin [Mass ratio] 1.0 {ratio} Normal [facility] Comment on above: Performed By: #### C RP, CMP, BNP ####[facility] Gtfrpznfqf[address] [place] [address]Dr. Shahbaz Rogel ALP [Catalytic activity/Vol] 88 U/L Normal 46-116 [facility] Comment on above: Performed By: #### C RP, CMP, BNP ####[facility] Jqksonfwft9[address] [place] [address]Dr. Shahbaz Rogel ALT [Catalytic activity/Vol] 17 U/L Normal 14-59 [facility] Comment on above: Performed By: #### C RP, CMP, BNP ####[facility] Qariekkzfx76[address] [place] [address]Dr. Shahbaz Rogel Anion gap [Moles/Vol] 12.5 mmol/L Normal [facility] Comment on above: Performed By: #### C RP, CMP, BNP ####[facility] Arufzjeuet[address] [place] [address]Dr. Shahbaz Rogel AST [Catalytic activity/Vol] 18 U/L Normal 15-37 [facility] Comment on above: Performed By: #### C RP, CMP, BNP ####[facility] Pdyytkxmgn[address] [place] [address]Dr. Shahbaz Rogel Bilirubin [Mass/Vol] 0.3 mg/dL Normal 0.2-1.0 [facility] Comment on above: Performed By: #### C RP, CMP, BNP ####[facility] Vviatmydmp[address] [place] [address]Dr. Shahbaz Rogel Calcium [Mass/Vol] 8.9 mg/dL Normal 8.5-10.1 [facility] Comment on above: Performed By: #### C RP, CMP, BNP ####[facility] Ityasrhkbg[address] [place], [place] [address]Dr. Shahbaz Rogel Chloride [Moles/Vol] 103 mmol/L Normal 98-107 [facility] Comment on above: Performed By: #### C RP, CMP, BNP ####[facility] Ybtaxgeuzc[address] [place], [place] [address]Dr. Shahbaz Rogel CO2 [Moles/Vol] 28.1 mmol/L Normal 21.0-32.0 [facility] Comment on above: Performed By: #### C RP, CMP, BNP ####[facility] Olawyfyzfn[address] [place], [place] [address]Dr. Shahbaz Rogel Creatinine [Mass/Vol] 1.24 mg/dL Critically high 0.55-1.02 [facility] Comment on above: Performed By: #### C RP, CMP, BNP ####[facility] Ltylqoabll[address] [place], [place] [address]Dr. Shahbaz Rogel EGFR-AF UKRAINIAN 54 mL/min/1.73m2 Critically low >=60 [facility] Comment on above: Performed By: #### C RP, CMP, BNP ####[facility] [address]mhaipbueb[address] [place], [place] [address]Dr. Shahbaz Rogel EGFR-NON AF UKRAINIAN 45 mL/min/1.73m2 Critically low >=60 [facility] Comment on above: Performed By: #### C RP, CMP, BNP ####[facility] Iowfvyfztl[address] [place], [place] [address]Dr. Shahbaz Rogel Globulin (S) [Mass/Vol] 3.1 g/dL Normal [facility] Comment on above: Performed By: #### C RP, CMP, BNP ####[facility] Opdsyobyjp[address] [place] [address]Dr. Shahbaz Rogel Glucose [Mass/Vol] 115 mg/dL Critically high 74-106 [facility] Comment on above: Performed By: #### C RP, CMP, BNP ####[facility] Jhixmkdita47[address] [place] [address]Dr. Shahbaz Rogel Potassium [Moles/Vol] 3.6 mmol/L Normal 3.5-5.1 [facility] Comment on above: Performed By: #### C RP, CMP, BNP ####[facility] Hpvcywadyu7345 [place] [address]Dr. Shahbaz Rogel Protein [Mass/Vol] 6.3 g/dL Critically low 6.4-8.2 [facility] Comment on above: Performed By: #### C RP, CMP, BNP ####[facility] Yeazckfcso38[address] [place] [address]Dr. Shahbaz Rogel Sodium [Moles/Vol] 140 mmol/L Normal 136-145 [facility] Comment on above: Performed By: #### C RP, CMP, BNP ####[facility] Ntaazsnfiq[address] [place] [address]Dr. Shahbaz Rogel Urea nitrogen [Mass/Vol] 18.0 mg/dL Normal 7.0-18.0 [facility] Comment on above: Performed By: #### C RP, CMP, BNP ####[facility] Ioxoszmyga[address] [place] [address]Dr. Shahbaz Rogel Urea nitrogen/Creatinine [Mass ratio] 14.5 mg/mg Normal [facility] Comment on above: Performed By: #### C RP, CMP, BNP ####[facility] Ktcxjjgqrw4[address] [place] [address]Dr. Shahbaz Rogel T3, TOTAL (TRIIODOTHYRONINE) on 07-05-2022 T3, TOTAL 95 ng/dL Normal 71-180 [facility] Comment on above: Performed By: #### T 3TOTAL ####[facility] [address]rlvzcfoxa[address] [place], [place] [address]Dr. Shabhaz Rogel CARDIAC ROSALINA 3-6on 2 CK [Catalytic activity/Vol] 78 U/L Normal 26-192 [facility] Comment on above: Performed By: #### C MREP ####[facility] V[address]jerorjvh[address] [place] [id number]. Shahbaz Rogel CK.MB [Mass/Vol] 1.44 ng/mL Normal <=3.60 [facility] Comment on above: Performed By: #### C MREP ####[facility] Gexxnwysro[address] [place] [address]Dr. Shahbaz Rogel HSTROP 9.0 pg/mL Normal 4.0-51.3 [facility] Comment on above: Result Comment: CUT- OFF POINTS HAVE BEEN ESTABLISHED BASED ON THE FOURTH UNIVERSAL DEFINITIONS OF MYOCARDIALINFARCTION. THE UPPER REFERENCE LIMIT (URL) OF TROPONIN, DEFINED THE 99TH PERCENTILE OFcTnI DISTRIBUTION IN A REFERENCE POPULATION, HAS BEEN CONFIRMED THE DECISION THRESHOLDFOR DC DIAGNOSIS. Performed By: #### C MREP ####[facility] Ydejnrgusr[address] [place] [address]Dr. Shahbaz Rogel CK [Catalytic activity/Vol] 88 U/L Normal 26-192 [facility] Comment on above: Performed By: #### C MREP ####[facility] Hrkchunviv[address] [place] [address]Dr. Shahbaz Rogel CK.MB [Mass/Vol] 1.38 ng/mL Normal <=3.60 [facility] Comment on above: Performed By: #### C MREP ####[facility] Dbbpynialc5071 [place] [address]Dr. Shahbaz Rogel HSTROP 7.0 pg/mL Normal 4.0-51.3 [facility] Comment on above: Result Comment: CUT- OFF POINTS HAVE BEEN ESTABLISHED BASED ON THE FOURTH UNIVERSAL DEFINITIONS OF MYOCARDIALINFARCTION. THE UPPER REFERENCE LIMIT (URL) OF TROPONIN, DEFINED THE 99TH PERCENTILE OFcTnI DISTRIBUTION IN A REFERENCE POPULATION, HAS BEEN CONFIRMED THE DECISION THRESHOLDFOR DC DIAGNOSIS. Performed By: #### C MREP ####[facility] Hzsbwxahbm6[address] [place] [address]Dr. Shahbaz Rogel CARDIAC ROSALINA ADMITon 022 CK [Catalytic activity/Vol] 87 U/L Normal 26-192 [facility] Comment on above: Performed By: #### C CINDY PAZ ####[facility] Ghbkqinyaf023[address] [place] [phone]. Shahbaz Rogel CK.MB [Mass/Vol] 1.80 ng/mL Normal <=3.60 [facility] Comment on above: Performed By: #### C CINDY PAZ ####[facility] Wjbsxborli9[address] [place] [address]Dr. Shahbaz Rogel HSTROP 7.6 pg/mL Normal 4.0-51.3 [facility] Comment on above: Result Comment: CUT- OFF POINTS HAVE BEEN ESTABLISHED BASED ON THE FOURTH UNIVERSAL DEFINITIONS OF MYOCARDIALINFARCTION. THE UPPER REFERENCE LIMIT (URL) OF TROPONIN, DEFINED THE 99TH PERCENTILE OFcTnI DISTRIBUTION IN A REFERENCE POPULATION, HAS BEEN CONFIRMED THE DECISION THRESHOLDFOR DC DIAGNOSIS. Performed By: #### C CINDY PAZ ####[facility] Yihdcerhmw[address] [place] [address]Dr. Shahbaz Rogel LEN 67 ng/mL Normal 9-82 [facility] Comment on above: Performed By: #### C CINDY PAZ ####[facility] Xvhbxncjgb55[address] [place] [address]Dr. Shahbaz Rogel CBC AUTO DIFFon 07-04-2022 BASO # 0.0 103/ul Normal 0.0-0.1 [facility] Comment on above: Performed By: #### C BC ####[facility] Cxqevvikzp14[address] [place] [phone]. Shahbaz Juan F Basophils/100 WBC (Bld) 0.7 % Normal 0.2-2.0 [facility] Comment on above: Performed By: #### C BC ####[facility] Wvhfhbbzoo55[address] [place] [address]Dr. Lilajarrod Rogel EO # 0.1 103/ul Normal 0.0-0.7 [facility] Comment on above: Performed By: #### C BC ####[facility] Iwaplvcuzp475[address] [place] [phone]. Shahbaz Rogel Eosinophils/100 WBC (Bld) 3.4 % Normal 0.9-7.0 [facility] Comment on above: Performed By: #### C BC ####[facility] Amslhfriqh5184 [place] [phone]. Shahbaz Rogel Erythrocyte distribution width (RBC) [Ratio] 13.3 % Normal 11.0-15.0 [facility] Comment on above: Performed By: #### C BC ####[facility] [address]vtpexpst[address] [place], [place] [address]Dr. Shahbaz Rogel Hematocrit (Bld) [Volume fraction] 42.1 % Normal 36.0-48.0 [facility] Comment on above: Performed By: #### C BC ####[facility] Zjophsuqxf46[address] [place], [place] [address]Dr. Shahbaz Rogel Hemoglobin (Bld) [Mass/Vol] 13.3 g/dL Normal 12.0-16.0 [facility] Comment on above: Performed By: #### C BC ####[facility] Domfysqimr[address] [place], [place] [address]Dr. Shahbaz Rogel IG # 0.01 10e3/ul Normal 0.00-0.03 [facility] Comment on above: Performed By: #### C BC ####[facility] Qyxajrjiqb13[address] [place] [address]Dr. Shahbaz Rogel IG % 0.3 % Normal 0.0-0.5 [facility] Comment on above: Performed By: #### C BC ####[facility] Xuvhepestd[address] [place], [place] [address]Dr. Shahbaz Rogel LYMPH # 1.0 103/ul Critically low 1.2-3.8 [facility] Comment on above: Performed By: #### C BC ####[facility] Vntzofhleb[address] [place], [place] [address]Dr. Shahbaz Rogel Lymphocytes/100 WBC (Bld) 35.6 % Normal 20.5-60.0 [facility] Comment on above: Performed By: #### C BC ####[facility] Ocbtlpobej0614 [place] [phone]. Shahbaz Rogel MANUAL DIFF REQ NO Normal [facility] Comment on above: Performed By: #### C BC ####[facility] Niolodwewx96[address] [place] [address]Dr. Shahbaz Rogel MCH (RBC) [Entitic mass] 27.9 pg Normal 26.7-34.0 [facility] Comment on above: Performed By: #### C BC ####[facility] Xjcacvxcha[address] [place], [place] [address]Dr. Shahbaz Rogel MCHC (RBC) [Mass/Vol] 31.6 g/dL Normal 29.9-35.2 [facility] Comment on above: Performed By: #### C BC ####[facility] [address]dirfzjhl[address] [place], [place] [address]Dr. Shahbaz Rogel MCV (RBC) [Entitic vol] 88.3 fL Normal 81.0-99.0 [facility] Comment on above: Performed By: #### C BC ####[facility] Mhhokhijde[address] [place], [place] [address]Dr. Shahbaz Juan F MONO # 0.2 103/ul Critically low 0.3-0.8 [facility] Comment on above: Performed By: #### C BC ####[facility] Nixexqdegd[address] [place], [place] [address]Dr. Lilajarrod Rogel Monocytes/100 WBC (Bld) 7.9 % Normal 1.7-12.0 [facility] Comment on above: Performed By: #### C BC ####[facility] Ezchjcxvro[address] [place], [place] [address]Dr. Shahbaz Rogel NEUT # 1.5 103/ul Normal 1.4-6.5 [facility] Comment on above: Performed By: #### C BC ####[facility] Tzzjbivpwy[address] [place], [place] [address]Dr. Lilajarrod Rogel Neutrophils/100 WBC (Bld) 52.1 % Normal 43.0-75.0 [facility] Comment on above: Performed By: #### C BC ####[facility] Quubjijbvm9[address] [place] [phone]. Shahbaz Rogel Platelet mean volume (Bld) [Entitic vol] 9.5 fL Normal 9.5-13.5 [facility] Comment on above: Performed By: #### C BC ####[facility] Yfciewzinu8886 [place] [phone]. Shahbaz Rogel PLT 172 103/ul Normal 150-450 [facility] Comment on above: Performed By: #### C BC ####[facility] Jspgapqelw7[address] [place], [place] [address]Dr. Shahbaz Rogel RBC 4.77 106/ul Normal 4.20-5.40 [facility] Comment on above: Performed By: #### C BC ####[facility] Rydskqleoe40[address] [place], [place] [address]Dr. Shahbaz Rogel WBC 2.9 103/ul Critically low 4.0-11.0 [facility] Comment on above: Performed By: #### C BC ####[facility] Maxhebxxyn[address] [place], [place] [address]Dr. Shahbaz Rogel CELL COUNT BODY FLUIDon 10-0 BASOS Normal [facility] Comment on above: Performed By: #### B FCC ####[facility] Yflnblbgte[address] [place], [place] [address]Dr. Shahbaz Rogel Eosinophils/100 WBC (Bld) 4 % Normal [facility] Comment on above: Performed By: #### B FCC ####[facility] Hsfyzztahx02[address] [place], [place] [address]Dr. Shahbaz Rogel Lymphocytes/100 WBC (Bld) 12 % Normal [facility] Comment on above: Performed By: #### B FCC ####[facility] Vcmkenprcj[address] [place], [place] [address]Dr. Shahbaz Rogel Monocytes/100 WBC (Bld) 4 % Normal [facility] Comment on above: Performed By: #### B FCC ####[facility] Puwpejmlke[address] [place], [place] [address]Dr. Shahbaz Rogel RBC 67 cubic mm Normal [facility] Comment on above: Performed By: #### B FCC ####[facility] Nnuhkhueal[address] [place], [place] [address]Ff. Shahbaz Rogel SEGS 80 % Normal [facility] Comment on above: Performed By: #### B FCC ####[facility] Loyumzqewa33[address] [place], [place] [address]Gm. Shahbaz Rogel WBC BODY FLUID 223 cubic mm Normal [facility] Comment on above: Performed By: #### B FCC ####[facility] Inidzbwrcq0003 [place] [phone]. Shahbaz Rogel CULTURE OTHERon 07-04-2022 CULTURE OTHER Culture Observations : NO GROWTH AT 48 HOURS. Normal [facility] Comment on above: Performed By: #### O THCX ####[facility] Vrunynrwxn74[address] [place] [phone]. Shahbaz Rogel CYTOLOGYon 07-04-2022 SENT TO REF LAB 07/04/22 Normal [facility] Comment on above: Performed By: #### C YTO ####[facility] Lhmdrtfgwz90[address] [place] [phone]. Shahbaz Rogel Covid-19 PCR (CVDTB)on SARS-CoV-2 (COVID-19) RNA PAVAN+probe Ql (Unsp spec) Not detected Normal NOT DETECTED [facility] Comment on above: Result Comment: When diagnostic [...] for this test is supported by the [place] of Health and Human Service's declaration that [...] be used). Performed By: #### C VDTBH ####[facility] Gpmrnvmizm37[address] [place] [address]Dr. Shahbaz Rogel GRAM STAINon 07-04-2022 COMMENTS NO ORGANISMS OBSERVED Normal [facility] Comment on above: Performed By: #### G STAIN ####[facility] [address]ogdvyxmgj[address] [place], [place] [address]Dr. Shahbaz Rogel DIPHTHEROIDS Normal [facility] Comment on above: Performed By: #### G STAIN ####[facility] M[address]aldbsqkp64[address] [place], [place] [address]Dr. Shahbaz Rogel EPITHELIALS Normal [facility] Comment on above: Performed By: #### G STAIN ####[facility] Ulhdrivyvg[address] [place], [place] [address]Dr. Shahbaz Rogel FUNGAL ELEMENTS Normal [facility] Comment on above: Performed By: #### G STAIN ####[facility] Uawlfyrbqv90[address] [place], [place] [address]Dr. Shahbaz Rogel GRAM NEG BACILLI Normal [facility] Comment on above: Performed By: #### G STAIN ####[facility] Fpxkiiojzw[address] [place], [place] [address]Dr. Shahbaz Rogel GRAM NEG DIPPLOCOCCI Normal [facility] Comment on above: Performed By: #### G STAIN ####[facility] Xoovsxmfvz[address] [place], [place] [address]Dr. Shahbaz Rogel GRAM POS BACILLI Normal [facility] Comment on above: Performed By: #### G STAIN ####[facility] Gyirgrkldu[address] [place], [place] [address]Dr. Shahbaz Rogel GRAM POSITIVE COCCI Normal [facility] Comment on above: Performed By: #### G STAIN ####[facility] Gklaumbtwi[address] [place], [place] [address]Dr. Shahbaz Rogel GRAM STAIN SOURCE Rt Lower Lobe Bronch ial Washing Normal [facility] Comment on above: Performed By: #### G STAIN ####[facility] Cdvxpgsxfy[address] [place], [place] [address]Dr. Shahbaz Rogel GS_DIPTH Normal [facility] Comment on above: Performed By: #### G STAIN ####[facility] Hdrhgslide64[address] [place] [phone]. Shahbaz Rogel WBC RARE Normal [facility] Comment on above: Performed By: #### G STAIN ####[facility] Kjhuonhsfo2078 [place] [phone]. Shahbaz Rogel PROF 14(COMP METB)on 022 Albumin [Mass/Vol] 3.6 g/dL Normal 3.4-5.0 [facility] Comment on above: Performed By: #### C JACKSON, CMADM ####[facility] Fplqwzqjph4364 [place] [phone]. Shahbaz Rogel Albumin/Globulin [Mass ratio] 1.1 {ratio} Normal [facility] Comment on above: Performed By: #### C JACKSON, CMADM ####[facility] Fpurmellce65[address] [place] [address]Dr. Shahbaz Rogel ALP [Catalytic activity/Vol] 102 U/L Normal 46-116 [facility] Comment on above: Performed By: #### C JACKSON, CMADM ####[facility] Hadttqhnbz5321 [place] [address]Dr. Shahbaz Rogel ALT [Catalytic activity/Vol] 19 U/L Normal 14-59 [facility] Comment on above: Performed By: #### C JACKSON, CMADM ####[facility] Djhvgvpsjd5729 [place] [phone]. Shahbaz Rogel Anion gap [Moles/Vol] 9.5 mmol/L Normal [facility] Comment on above: Performed By: #### C JACKSON, CMADM ####[facility] Gaalnmnlyt[address] [place] [phone]. Shahbaz Rogel AST [Catalytic activity/Vol] 19 U/L Normal 15-37 [facility] Comment on above: Performed By: #### C JACKSON, CMADM ####[facility] Bcaepgkrzz6665 [place] [phone]. Shahbaz Rogel Bilirubin [Mass/Vol] 0.3 mg/dL Normal 0.2-1.0 [facility] Comment on above: Performed By: #### C JACKSON, CMADM ####[facility] Scqxohorif82[address] [place] [address]Dr. Shahbaz Rogel Calcium [Mass/Vol] 8.8 mg/dL Normal 8.5-10.1 [facility] Comment on above: Performed By: #### C JACKSON, CMADM ####[facility] Dxpqbettnj[address] [place], [place] [address]Dr. Lilajarrod Rogel Chloride [Moles/Vol] 107 mmol/L Normal 98-107 [facility] Comment on above: Performed By: #### C JACKSON, CMADM ####[facility] Jplenmtols[address] [place], [place] [address]Dr. Lilajarrod Rogel CO2 [Moles/Vol] 29.5 mmol/L Normal 21.0-32.0 [facility] Comment on above: Performed By: #### C JACKSON, CMAROXANNA ####[facility] Bbtyfgpjzq[address] [place], [place] [address]Dr. Lilajarrod Rogel Creatinine [Mass/Vol] 0.97 mg/dL Normal 0.55-1.02 [facility] Comment on above: Performed By: #### C JACKSON, CINDY ####[facility] Ruxumvauco[address] [place], [place] [address]Dr. Shahbaz Rogel EGFR-AF UKRAINIAN >60 Normal >=60 [facility] Comment on above: Performed By: #### C JACKSON, CMAROXANNA ####[facility] Ihvxwaspfh75[address] [place], [place] [address]Dr. Shahbaz Rogel EGFR-NON AF UKRAINIAN 59 mL/min/1.73m2 Critically low >=60 [facility] Comment on above: Performed By: #### C JACKSON, CMADM ####[facility] Kekzohmjrx[address] [place], [place] [address]Dr. Shahbaz Rogel Globulin (S) [Mass/Vol] 3.2 g/dL Normal [facility] Comment on above: Performed By: #### C JACKSON, CMAROXANNA ####[facility] Ulqcwkukda[address] [place], [place] [address]Dr. Shahbaz Rogel Glucose [Mass/Vol] 89 mg/dL Normal 74-106 [facility] Comment on above: Performed By: #### C JACKSON, CMADM ####[facility] Rzwjcdmefn55[address] [place] [address]Dr. Shahbaz Rogel Potassium [Moles/Vol] 4.0 mmol/L Normal 3.5-5.1 [facility] Comment on above: Performed By: #### C JACKSON, CMADM ####[facility] Clkmfnhtbi6017 [place] [address]Dr. Shahbaz Rogel Protein [Mass/Vol] 6.8 g/dL Normal 6.4-8.2 [facility] Comment on above: Performed By: #### C JACKSON, CMADM ####[facility] Lvguquheuc[address] [place], [place] [address]Dr. Shahbaz Rogel Sodium [Moles/Vol] 142 mmol/L Normal 136-145 [facility] Comment on above: Performed By: #### C JACKSON, CMADM ####[facility] Ilitbjliqp[address] [place], [place] [address]Dr. Shahbaz Rogel Urea nitrogen [Mass/Vol] 11.0 mg/dL Normal 7.0-18.0 [facility] Comment on above: Performed By: #### C JACKSON, CMADM ####[facility] Iycyppffth[address] [place], [place] [address]Dr. Shahbaz Rogel Urea nitrogen/Creatinine [Mass ratio] 11.3 mg/mg Normal [facility] Comment on above: Performed By: #### C JACKSON, CMADM ####[facility] Vrlpylicwb39[address] [place] [address]Dr. Shahbaz Rogel T4on 07-04-2022 T4 [Mass/Vol] 4.70 ug/dL Critically low 4.80-13.90 [facility] Comment on above: Performed By: #### T SH, T4 ####[facility] Hbcpwfclqu[address] [place], [place] [address]Dr. Shahbaz Rogel TSHon 07-04-2022 TSH 0.359 uIU/mL Normal 0.358-3.74 0 [facility] Comment on above: Performed By: #### T SH, T4 ####[facility] Dvhvmhwwrc13[address] [place], [place] [address]Bf. Shahbaz Rogel XR CHEST 1 Von 07-04-2022 XR CHEST 1 V Normal [facility] XR CHEST 1 V Normal [facility] CHLAMYDIA PNEUMONIAE IgG IgM IgAon 06-27-2022 Chlamydia pneumoniae IgA <1:16 Normal Neg:<1:16 [facility] Comment on above: Performed By: #### C HLMPNE ####[facility] Dvwywtjnoc3339 [place] [phone]. Shahbaz Rogel Chlamydia pneumoniae IgG <1:16 Normal Neg:<1:16 [facility] Comment on above: Performed By: #### C HLMPNE ####[facility] Lqddnfudqt4695 [place] [phone]. Shahbaz Rogel Chlamydia pneumoniae IgM <1:10 Normal Neg:<1:10 [facility] Comment on above: Performed By: #### C HLMPNE ####[facility] Gmqhcsicqm9656 [place] [phone]. Shahbaz Rogel Test Information: Comment Normal [facility] Comment on above: Result Comment: This test was developed and its performance characteristics determinedby [employer]. It has not been cleared or approved by the Food and DrugAdministration. The FDA has determined that such clearance or approvalis not necessary. Results of this test are for investigationalpurposes only. The result should not be used as a diagnosticprocedure without confirmation of the diagnosis by another medicallyestablished diagnostic product or procedure. Performed By: #### C HLMPNE ####[facility] Rpclcifukt7[address] [place] [phone]. Shahbaz Rogel Covid-19 PCR (CVDTBH)on 06-03 SARS-CoV-2 (COVID-19) RNA PAVAN+probe Ql (Unsp spec) Not detected Normal NOT DETECTED [facility] Comment on above: Result Comment: This test is not yet approved or cleared by the [place] FDA. When there are no FDA-approved or cleared tests available, and other criteria are met, FDA can make tests available under an emergency access mechanism called an Emergency Use Authorization (EUA). The EUA for this test is supported by the [place] of Health and Human Service's (HHS's) declaration [...] with SARS-CoV-2. Performed By: #### C VDTBH ####[facility] [address]wtqreya[address] [place], [place] [address]Dr. Shahbaz Rogel CYCLIC CITRULLINATED PEPTIDE AB (CCP)on 06-25-2022 CCP Antibodies IgG/IgA 13 units Normal 0-19 [facility] Comment on above: Result Comment: Nega tive <20 Weak positive 20 - 39 Moderate positive 40 - 59 Strong positive >59 Performed By: #### C CPAB ####[facility] Ftkgyusvcp[address] [place], [place] [address]Dr. Shahbaz Rogel ANTI NEUTROPHIL CYTOPLASMIC AB (ANCA) PRon 06-24-2022 Anti-MPO Antibodies <0.2 Normal 0.0-0.9 [facility] Comment on above: Result Comment: Perf ormed at: BN Performed By: #### A NCAP ####[facility] [address]zcmwso[address] [place], [place] [address]Dr. Shahbaz Rogel Anti-PR3 Antibodies 5.0 units Critically high 0.0-0.9 [facility] Comment on above: Result Comment: Perf ormed at: BN Performed By: #### A NCAP ####[facility] [address]nlxptogv[address] [place], [place] [address]Dr. Shahbaz Rogel Atypical pANCA <1:20 Normal Neg:<1:20 [facility] Comment on above: Result Comment: The atypical pANCA pattern has been observed in a significantpercentage of patients with ulcerative colitis, primary sclerosingcholangitis and autoimmune hepatitis.Performed at: Performed By: #### A NCAP ####[facility] Ztbsqhysfl[address] [place] [address]Dr. Shahbaz Rogel Cytoplasmic (C-ANCA) <1:20 Normal Neg:<1:20 [facility] Comment on above: Result Comment: Perf ormed at: CB Performed By: #### A NCAP ####[facility] Hoevvfhsbf04[address] [place] [address]Dr. Shahbaz Rogel Perinuclear (P-ANCA) 1:80 Critically high Neg:<1:20 [facility] Comment on above: Result Comment: The presence of positive fluorescence exhibiting P-ANCA or C-ANCApatterns alone is not specific for the diagnosis of Ada'sGranulomatosis (WG) or microscopic polyangiitis. Decisions abouttreatment should not be based solely on ANCA IFA results. TheInternational ANCA Group Consensus recommends follow up testing ofpositive sera with both WY-3 and MPO-ANCA enzyme immunoassays. Asmany as 5% serum samples are positive only by EIA.Ref. AM J Clin Pathol 1999;111:507-513.Performed at: CB Performed By: #### A NCAP ####[facility] [address]igwai[address] [place], [place] [address]Dr. Shahbaz Rogel ANTIGLOMERULAR BASEMENT MEMB ANTOINE ABSon 06-24-2022 Anti-GBM Antibodies <0.2 Normal 0.0-0.9 [facility] Comment on above: Performed By: #### A GBM ####[facility] [address]axtwazg[address] [place], [place] [address]Dr. Shahbaz Rogel SHAHANA EIA W/REFLEX 5 BIOMARKER Son 06-23-2022 SHAHANA Direct Negative Normal Negative [facility] Comment on above: Performed By: #### A NARF ####[facility] [address]ry[address] [place], [place] [address]Dr. Shahbaz Rogel ANTISCLERODERMA ABon 022 Antiscleroderma-70 Antibodies <0.2 Normal 0.0-0.9 [facility] Comment on above: Performed By: #### A NSCLER ####[facility] Kdxsiejkts[address] [place], [place] [address]Dr. Shahbaz Rogel RHEUMATOID FACTORon 06-23-20 RA Latex Turbid. <10.0 Normal <14.0 [facility] Comment on above: Performed By: #### R F ####[facility] [address]dvfvdymmi[address] [place] [address]Dr. Shahbaz Rogel CBC AUTO DIFFon 06-22-2022 BASO # 0.0 103/ul Normal 0.0-0.1 [facility] Comment on above: Performed By: #### C BC ####[facility] Tnicnumcrg[address] [place] [address]Dr. Shahbaz Rogel Basophils/100 WBC (Bld) 0.5 % Normal 0.2-2.0 [facility] Comment on above: Performed By: #### C BC ####[facility] Fztvvswgrv[address] [place], [place] [address]Dr. Shahbaz Rogel EO # 0.1 103/ul Normal 0.0-0.7 [facility] Comment on above: Performed By: #### C BC ####[facility] Hjpxdnilhy[address] [place], [place] [address]Dr. Shahbaz Rogel Eosinophils/100 WBC (Bld) 3.4 % Normal 0.9-7.0 [facility] Comment on above: Performed By: #### C BC ####[facility] Fifioaiirh[address] [place], [place] [address]Dr. Shahbaz Rogel Erythrocyte distribution width (RBC) [Ratio] 13.2 % Normal 11.0-15.0 [facility] Comment on above: Performed By: #### C BC ####[facility] Ibudsumrhj[address] [place], [place] [address]Dr. Shahbaz Rogel Hematocrit (Bld) [Volume fraction] 45.6 % Normal 36.0-48.0 [facility] Comment on above: Performed By: #### C BC ####[facility] Bouthgvyue[address] [place], [place] [address]Dr. Shahbaz Rogel Hemoglobin (Bld) [Mass/Vol] 14.7 g/dL Normal 12.0-16.0 [facility] Comment on above: Performed By: #### C BC ####[facility] Igepgcdkss[address] [place] [id number]. Shahbaz Rogel IG # 0.01 10e3/ul Normal 0.00-0.03 [facility] Comment on above: Performed By: #### C BC ####[facility] Ufuwcjvtww96[address] [place] [phone]. Shahbaz Rogel IG % 0.3 % Normal 0.0-0.5 [facility] Comment on above: Performed By: #### C BC ####[facility] Clmmkndkhy[address] [place] [address]Dr. Shahbaz Rogel LYMPH # 1.0 103/ul Critically low 1.2-3.8 [facility] Comment on above: Performed By: #### C BC ####[facility] Aqytuygoit[address] [place] [address]Dr. Shahbaz Rogel Lymphocytes/100 WBC (Bld) 25.7 % Normal 20.5-60.0 [facility] Comment on above: Performed By: #### C BC ####[facility] Zndamimhgp[address] [place] [address]Dr. Shahbaz Rogel MANUAL DIFF REQ NO Normal [facility] Comment on above: Performed By: #### C BC ####[facility] Nloxuhdofg[address] [place] [address]Dr. Shahbaz Rogel MCH (RBC) [Entitic mass] 28.1 pg Normal 26.7-34.0 [facility] Comment on above: Performed By: #### C BC ####[facility] Iiigicjcps[address] [place], [place] [address]Dr. Shahbaz Rogel MCHC (RBC) [Mass/Vol] 32.2 g/dL Normal 29.9-35.2 [facility] Comment on above: Performed By: #### C BC ####[facility] Y[address]zmnrfmx[address] [place] [address]Dr. Shahbaz Rogel MCV (RBC) [Entitic vol] 87.2 fL Normal 81.0-99.0 [facility] Comment on above: Performed By: #### C BC ####[facility] Jritaynxsj79[address] [place] [phone]. Shahbaz Rogel MONO # 0.2 103/ul Critically low 0.3-0.8 [facility] Comment on above: Performed By: #### C BC ####[facility] Qsbtqdaalr94[address] [place] [phone]. Shahbaz Rogel Monocytes/100 WBC (Bld) 6.0 % Normal 1.7-12.0 [facility] Comment on above: Performed By: #### C BC ####[facility] Pfqsdjeqkr75[address] [place] [phone]. Shahbaz Rogel NEUT # 2.5 103/ul Normal 1.4-6.5 [facility] Comment on above: Performed By: #### C BC ####[facility] Ajtvyrphdg[address] [place] [address]Dr. Shahbaz Rogel Neutrophils/100 WBC (Bld) 64.1 % Normal 43.0-75.0 [facility] Comment on above: Performed By: #### C BC ####[facility] Tgooqyormk044[address] [place] [phone]. Shahbaz Rogel Platelet mean volume (Bld) [Entitic vol] 9.4 fL Critically low 9.5-13.5 [facility] Comment on above: Performed By: #### C BC ####[facility] Fqplqxuatm4[address] [place] [phone]. Shahbaz Rogel PLT 212 103/ul Normal 150-450 [facility] Comment on above: Performed By: #### C BC ####[facility] Dpbmrdjgts2686 [place] [phone]. Shahbaz Rogel RBC 5.23 106/ul Normal 4.20-5.40 [facility] Comment on above: Performed By: #### C BC ####[facility] Uafxwtmqyo86[address] [place] [address]Dr. Shahbaz Rogel WBC 3.9 103/ul Critically low 4.0-11.0 [facility] Comment on above: Performed By: #### C BC ####[facility] Jxldxcvvca[address] [place], [place] [address]Dr. Shahbaz Rogel PROF 14(COMP METB)on 022 Albumin [Mass/Vol] 4.1 g/dL Normal 3.4-5.0 [facility] Comment on above: Performed By: #### C MP ####[facility] Ukuohajlrz[address] [place], [place] [address]Dr. Shahbaz Rogel Albumin/Globulin [Mass ratio] 1.1 {ratio} Normal [facility] Comment on above: Performed By: #### C MP ####[facility] Sqcpgeilkh[address] [place], [place] [address]Dr. Shahbaz Rogel ALP [Catalytic activity/Vol] 133 U/L Critically high 46-116 [facility] Comment on above: Performed By: #### C MP ####[facility] Exegsfhiyk06[address] [place], [place] [address]Dr. Shahbaz Rogel ALT [Catalytic activity/Vol] 29 U/L Normal 14-59 [facility] Comment on above: Performed By: #### C MP ####[facility] Zstcyhutuq38[address] [place], [place] [address]Dr. Shahbaz Rogel Anion gap [Moles/Vol] 10.9 mmol/L Normal [facility] Comment on above: Performed By: #### C MP ####[facility] Czbdoewkcz[address] [place], [place] [address]Dr. Shahbaz Rogel AST [Catalytic activity/Vol] 23 U/L Normal 15-37 [facility] Comment on above: Performed By: #### C MP ####[facility] Lvoofsdcrb13[address] [place], [place] [address]Dr. Shahbaz Rogel Bilirubin [Mass/Vol] 0.3 mg/dL Normal 0.2-1.0 [facility] Comment on above: Performed By: #### C MP ####[facility] Vzoqdcjnse4[address] [place], [place] [address]Dr. hSahbaz Rogel Calcium [Mass/Vol] 9.1 mg/dL Normal 8.5-10.1 [facility] Comment on above: Performed By: #### C MP ####[facility] Hewpwadpat7983 [place] [phone]. Lilajarrod Rogel Chloride [Moles/Vol] 103 mmol/L Normal 98-107 [facility] Comment on above: Performed By: #### C MP ####[facility] Ooqzepnigo5[address] [place] [address]Dr. Shahbaz Juan F CO2 [Moles/Vol] 30.8 mmol/L Normal 21.0-32.0 [facility] Comment on above: Performed By: #### C MP ####[facility] Sqjnrapjjw15[address] [place] [address]Dr. Lilajarrod Rogel Creatinine [Mass/Vol] 1.02 mg/dL Normal 0.55-1.02 [facility] Comment on above: Performed By: #### C MP ####[facility] Hpblcesjac[address] [place], [place] [address]Dr. Shahbaz Rogel EGFR-AF UKRAINIAN >60 Normal >=60 [facility] Comment on above: Performed By: #### C MP ####[facility] Lwdqkbvmbo[address] [place], [place] [address]Dr. Shahbaz Rogel EGFR-NON AF UKRAINIAN 56 mL/min/1.73m2 Critically low >=60 [facility] Comment on above: Performed By: #### C MP ####[facility] Cpppgpwfse3[address] [place] [address]Dr. Shahbaz Rogel Globulin (S) [Mass/Vol] 3.7 g/dL Normal [facility] Comment on above: Performed By: #### C MP ####[facility] Biyasitmrd92[address] [place] [address]Dr. Shahbaz Rogel Glucose [Mass/Vol] 80 mg/dL Normal 74-106 [facility] Comment on above: Performed By: #### C MP ####[facility] Soblzysocx[address] [place], [place] [address]Dr. Shahbaz Rogel Potassium [Moles/Vol] 3.7 mmol/L Normal 3.5-5.1 [facility] Comment on above: Performed By: #### C MP ####[facility] Spkmhnoiac[address] [place], [place] [address]Dr. Shahbaz Rogel Protein [Mass/Vol] 7.8 g/dL Normal 6.4-8.2 [facility] Comment on above: Performed By: #### C MP ####[facility] Kyjwndiskh[address] [place] [address]Dr. Shahbaz Rogel Sodium [Moles/Vol] 141 mmol/L Normal 136-145 [facility] Comment on above: Performed By: #### C MP ####[facility] Euuufbcveb08[address] [place] [address]Dr. Shahbaz Rogel Urea nitrogen [Mass/Vol] 10.0 mg/dL Normal 7.0-18.0 [facility] Comment on above: Performed By: #### C MP ####[facility] Ncniulhcdp8[address] [place] [address]Dr. Shahbaz Rogel Urea nitrogen/Creatinine [Mass ratio] 9.8 mg/mg Normal [facility] Comment on above: Performed By: #### C MP ####[facility] Rvypzlcssi8[address] [place] [address]Dr. Shahbaz Rogel SED RATE [facility] 2021 SED RATE 17 mm/hr Normal <=30 [facility] Comment on above: Performed By: #### S EDR ####[facility] Vwczjztvsp[address] [place] [address] Shah[address] Rogel CT CHEST HI RESOLUTIONon CT CHEST HI RESOLUTION Normal [facility] XR ANKLE RT MIN 3 VIEWSon XR ANKLE RT MIN 3 VIEWS Normal [facility] CT CHEST WO CONon 03-03-2022 CT CHEST WO CON Normal [facility] CT CSPINE WO CONon CT CSPINE WO CON Normal [facility] XR CHEST 2 Von 03-03-2022 XR CHEST 2 V Normal [facility] XR STERNUM MIN 2 VIEWSon XR STERNUM MIN 2 VIEWS Normal [facility] CT HEAD WO CONon 03-02-2022 CT HEAD WO CON Normal [facility] CBC AUTO DIFFon 01-21-2022 BASO # 0.0 103/ul Normal 0.0-0.1 [facility] Comment on above: Performed By: #### C BC ####[facility] Zbicaasulb[address] [place], [place] [address]Dr. Lilajarrod Rogel Basophils/100 WBC (Bld) 0.0 % Critically low 0.2-2.0 [facility] Comment on above: Performed By: #### C BC ####[facility] Nupgoztipm[address] [place], [place] [address]Dr. Shahbaz Rogel EO # 0.0 103/ul Normal 0.0-0.7 [facility] Comment on above: Performed By: #### C BC ####[facility] Jlshnvidcb[address] [place], [place] [address]Dr. Shahbaz Rogel Eosinophils/100 WBC (Bld) 0.0 % Critically low 0.9-7.0 [facility] Comment on above: Performed By: #### C BC ####[facility] Skilfzkwjl17[address] [place], [place] [address]Dr. Shahbaz Rogel Erythrocyte distribution width (RBC) [Ratio] 14.2 % Normal 11.0-15.0 [facility] Comment on above: Performed By: #### C BC ####[facility] Ldtobhumqm[address] [place], [place] [address]Dr. Lilajarrod Rogel Hematocrit (Bld) [Volume fraction] 38.9 % Normal 36.0-48.0 [facility] Comment on above: Performed By: #### C BC ####[facility] Vwmlegwnnk85[address] [place], [place] [address]Dr. Lilajarrod Rogel Hemoglobin (Bld) [Mass/Vol] 11.8 g/dL Critically low 12.0-16.0 [facility] Comment on above: Performed By: #### C BC ####[facility] Rpkhqswmpb0[address] [place], [place] [address]Dr. Shahbaz Rogel IG # 0.03 10e3/ul Normal 0.00-0.03 [facility] Comment on above: Performed By: #### C BC ####[facility] Xqfyezcrfr20[address] [place], [place] [address]Dr. Shahbaz Rogel IG % 0.4 % Normal 0.0-0.5 [facility] Comment on above: Performed By: #### C BC ####[facility] Tvqrjyvxmf49[address] [place] [address]Dr. Shahbaz Rogel LYMPH # 0.8 103/ul Critically low 1.2-3.8 [facility] Comment on above: Performed By: #### C BC ####[facility] Cubxsugyjo8991 [place] [address]Dr. Shahbaz Juan F Lymphocytes/100 WBC (Bld) 10.3 % Critically low 20.5-60.0 [facility] Comment on above: Performed By: #### C BC ####[facility] Fmmwdzcnga[address] [place], [place] [address]Dr. Lilajarrod Rogel MANUAL DIFF REQ NO Normal [facility] Comment on above: Performed By: #### C BC ####[facility] Fizdvauqis8540[address] [place], [place] [address]Dr. Shahbaz Juan F MCH (RBC) [Entitic mass] 27.1 pg Normal 26.7-34.0 [facility] Comment on above: Performed By: #### C BC ####[facility] Mwudppgewp[address] [place], [place] [address]Dr. Shahbaz Rogel MCHC (RBC) [Mass/Vol] 30.3 g/dL Normal 29.9-35.2 [facility] Comment on above: Performed By: #### C BC ####[facility] Hthapbepsw[address] [place], [place] [address]Dr. Shahbaz Juan F MCV (RBC) [Entitic vol] 89.2 fL Normal 81.0-99.0 [facility] Comment on above: Performed By: #### C BC ####[facility] Sqqyrgbwlt24[address] [place], [place] [address]DrChen Lilajarrod Rogel MONO # 0.4 103/ul Normal 0.3-0.8 [facility] Comment on above: Performed By: #### C BC ####[facility] Xtyanpmvqb163[address] [place], [place] [address]Dr. Shahbaz Rogel Monocytes/100 WBC (Bld) 4.7 % Normal 1.7-12.0 [facility] Comment on above: Performed By: #### C BC ####[facility] Owibwarruj7[address] [place] [address]Dr. Shahbaz Rogel NEUT # 6.6 103/ul Critically high 1.4-6.5 [facility] Comment on above: Performed By: #### C BC ####[facility] Jfnsikkwcc7079 [place] [address]Dr. Shahbaz Rogel Neutrophils/100 WBC (Bld) 84.6 % Critically high 43.0-75.0 [facility] Comment on above: Performed By: #### C BC ####[facility] Tqjsbqrbvi65[address] [place], [place] [address]Dr. Shahbaz Rogel Platelet mean volume (Bld) [Entitic vol] 10.0 fL Normal 9.5-13.5 [facility] Comment on above: Performed By: #### C BC ####[facility] Bhjjacxybi9[address] [place], [place] [address]Dr. Shahbaz Rogel PLT 165 103/ul Normal 150-450 [facility] Comment on above: Performed By: #### C BC ####[facility] Kotpjtdxhi27[address] [place], [place] [address]Dr. Shahbaz Rogel RBC 4.36 106/ul Normal 4.20-5.40 [facility] Comment on above: Performed By: #### C BC ####[facility] Eqleiebmdg95[address] [place], [place] [address]Dr. Shahbaz Rogel WBC 7.8 103/ul Normal 4.0-11.0 [facility] Comment on above: Performed By: #### C BC ####[facility] Lztlwiwago[address] [place], [place] [address]Dr. Shahbaz Rogel ER URINE PROFILEon 2 Bilirubin Ql (U) Negative Normal NEGATIVE [facility] Comment on above: Performed By: #### E RUR ####[facility] Vnhesgknab6[address] [place], [place] [address]Dr. Lilajarrod Juan F Clarity (U) CLEAR Normal CLEAR [facility] Comment on above: Performed By: #### E RUR ####[facility] Aidkuyxsht[address] [place], [place] [address]Dr. Lilajarrod Juan F Color (U) LT. YELLOW Normal YELLOW [facility] Comment on above: Performed By: #### E RUR ####[facility] Jvqtithvdz[address] [place], [place] [address]Dr. Shahbaz Rogel ERUAHD A micrscopic examina tion will be performed if indicated. Normal [facility] Comment on above: Performed By: #### E RUR ####[facility] Etfgscrtur9[address] [place], [place] [address]Dr. Shahbaz Rogel Glucose Ql (U) Negative Normal NEGATIVE [facility] Comment on above: Performed By: #### E RUR ####[facility] Bfvpiiwczv24[address] [place], [place] [address]Dr. Shahbaz Rogel Hemoglobin Ql (U) Negative Normal NEGATIVE [facility] Comment on above: Performed By: #### E RUR ####[facility] Kwulfbqgsy70[address] [place], [place] [address]Dr. Shahbaz Rogel Ketones Ql (U) Negative Normal NEGATIVE [facility] Comment on above: Performed By: #### E RUR ####[facility] Bagttiallr[address] [place], [place] [address]Dr. Shahbaz Rogel LEUKOCYTES Negative Normal NEGATIVE [facility] Comment on above: Performed By: #### E RUR ####[facility] Qgxlcsvhjb50[address] [place], [place] [address]Dr. Shahbaz Rogel Nitrite Ql (U) Negative Normal NEGATIVE [facility] Comment on above: Performed By: #### E RUR ####[facility] Rhypexuwll7[address] [place], [place] [address]Dr. Shahbaz Rogel pH (U) 6.0 [pH] Normal 5-9 [facility] Comment on above: Performed By: #### E RUR ####[facility] Kxkzrrvwzh[address] [place], [place] [address]Dr. Shahbaz Rogel SPEC GRAVITY 1.020 Normal 1.005-<=1. 025 [facility] Comment on above: Performed By: #### E RUR ####[facility] Rwzpgjmyat49[address] [place] [address]Dr. Shahbaz Rogel UA PROTEIN Negative Normal NEGATIVE/ TRACE [facility] Comment on above: Performed By: #### E RUR ####[facility] Uswghvgttx33[address] [place] [address]Dr. Shahbaz Rogel UR MICRO IND NOT INDICATED Normal [facility] Comment on above: Performed By: #### E RUR ####[facility] Uzmgqsvwus8998 [place] [address]Dr. Shahbaz Rogel Urobilinogen Qn (U) 0.2 {Melida'U}/dL Normal 0.2 - 1. 0 [facility] Comment on above: Performed By: #### E RUR ####[facility] Hldnaxoxrw76[address] [place] [address]Dr. Shahbaz Rogel POINT OF CARE GLUCOSEon 01-01 Glucose [Mass/Vol] 151 mg/dL Critically high 74-106 [facility] Comment on above: Performed By: #### P OCGLUC ####[facility] Yhcjrkojzr45[address] [place] [address]Dr. Shahbaz Rogel Glucose [Mass/Vol] 248 mg/dL Critically high 74-106 [facility] Comment on above: Performed By: #### P OCGLUC ####[facility] Qdlrpegvxw0354 [place] [address]Dr. Shahbaz Rogel PROF 14(COMP METB)on 022 Albumin [Mass/Vol] 2.8 g/dL Critically low 3.4-5.0 [facility] Comment on above: Performed By: #### C MP ####[facility] Ppotgowoxw07[address] [place] [address]Dr. Shahbaz Rogel Albumin/Globulin [Mass ratio] 0.9 {ratio} Normal [facility] Comment on above: Performed By: #### C MP ####[facility] Jexagaowui63[address] [place] [address]Dr. Shahbaz Rogel ALP [Catalytic activity/Vol] 90 U/L Normal 46-116 [facility] Comment on above: Performed By: #### C MP ####[facility] Eeqfbqqwej7968 [place] [address]Dr. Shahbaz Juan F ALT [Catalytic activity/Vol] 20 U/L Normal 14-59 [facility] Comment on above: Performed By: #### C MP ####[facility] Atrdkldhwj7447 [place] [address]Dr. Shahbaz Rogel Anion gap [Moles/Vol] 8.9 mmol/L Normal [facility] Comment on above: Performed By: #### C MP ####[facility] Sdzfositfg5922 [place] [address]Dr. Shahbaz Juan F AST [Catalytic activity/Vol] 14 U/L Critically low 15-37 [facility] Comment on above: Performed By: #### C MP ####[facility] Bvgsvtyefo[address] [place], [place] [address]Dr. Shahbaz Rogel Bilirubin [Mass/Vol] 0.1 mg/dL Critically low 0.2-1.3 [facility] Comment on above: Performed By: #### C MP ####[facility] Knaoyaanmi77[address] [place], [place] [address]Dr. Shahbaz Rogel Calcium [Mass/Vol] 8.2 mg/dL Critically low 8.5-10.1 [facility] Comment on above: Performed By: #### C MP ####[facility] Pgjsmxcdip[address] [place], [place] [address]Dr. Shahbaz Rogel Chloride [Moles/Vol] 110 mmol/L Critically high 98-107 [facility] Comment on above: Performed By: #### C MP ####[facility] Adlwjdbhzj05[address] [place], [place] [address]Dr. Shahbaz Rogel CO2 [Moles/Vol] 28.0 mmol/L Normal 22.0-30.0 [facility] Comment on above: Performed By: #### C MP ####[facility] Igjvxyjdxn[address] [place], [place] [address]Dr. Shahbaz Rogel Creatinine [Mass/Vol] 0.78 mg/dL Normal 0.52-1.04 [facility] Comment on above: Performed By: #### C MP ####[facility] Ebubcmxlat34[address] [place] [id number]. Shahbaz Rogel EGFR-AF UKRAINIAN >60 Normal >=60 [facility] Comment on above: Performed By: #### C MP ####[facility] Dfrnbqgnxu3555 [place] [id number]. Shahbaz Rogel EGFR-NON AF UKRAINIAN >60 Normal >=60 [facility] Comment on above: Performed By: #### C MP ####[facility] Qdsqxmjeie6501 [place] [id number]. Shahbaz Rogel Globulin (S) [Mass/Vol] 3.1 g/dL Normal [facility] Comment on above: Performed By: #### C MP ####[facility] Szsuashsvx8045 [place] [address]Dr. Shahbaz Rogel Glucose [Mass/Vol] 121 mg/dL Critically high 74-106 [facility] Comment on above: Performed By: #### C MP ####[facility] Bkxvhaiuot9355 [place] [address]Dr. Shahbaz Rogel Potassium [Moles/Vol] 3.9 mmol/L Normal 3.4-5.0 [facility] Comment on above: Performed By: #### C MP ####[facility] Hkdnoirvcs5259 [place] [phone]. Shahbaz Rogel Protein [Mass/Vol] 5.9 g/dL Critically low 6.1-8.2 [facility] Comment on above: Performed By: #### C MP ####[facility] Tnfrepkgme5692 [place] [phone]. Shahbaz Rogel Sodium [Moles/Vol] 143 mmol/L Normal 137-145 [facility] Comment on above: Performed By: #### C MP ####[facility] Qmavztqbkq0962 [place] [address]Dr. Shahbaz Rogel Urea nitrogen [Mass/Vol] 26.0 mg/dL Critically high 7.0-18.0 [facility] Comment on above: Performed By: #### C MP ####[facility] Xrhegakfxi6801 [place] [address]Dr. Shahbaz Rogel Urea nitrogen/Creatinine [Mass ratio] 33.3 mg/mg Normal [facility] Comment on above: Performed By: #### C MP ####[facility] Aykupyoinl[address] [place], [place] [address]Dr. Shahbaz Rogel HTTVQ-9-EDBKGBVTRELcp 2021 Qgpjm-9-Bmyesrlnkxn, Serum 154 mg/dL Normal 101-187 [facility] Comment on above: Performed By: #### A LPHA-1 ####[facility] Idwjfjnpmn[address] [place], [place] [address]Dr. Shahbaz Rogel CBC AUTO DIFFon 01-20-2022 BASO # 0.0 103/ul Normal 0.0-0.1 [facility] Comment on above: Performed By: #### C BC ####[facility] Vuybhvygjh7042[address] [place], [place] [address]Dr. Lilajarrod Rogel Basophils/100 WBC (Bld) 0.0 % Critically low 0.2-2.0 [facility] Comment on above: Performed By: #### C BC ####[facility] Dzsgipjonq[address] [place], [place] [address]Dr. Shahbaz Rogel EO # 0.0 103/ul Normal 0.0-0.7 [facility] Comment on above: Performed By: #### C BC ####[facility] Cibvslfaey[address] [place], [place] [address]Dr. Shahbaz Juan F Eosinophils/100 WBC (Bld) 0.0 % Critically low 0.9-7.0 [facility] Comment on above: Performed By: #### C BC ####[facility] Bfggicszpt7[address] [place], [place] [address]Dr. Shahbaz Rogel Erythrocyte distribution width (RBC) [Ratio] 13.7 % Normal 11.0-15.0 [facility] Comment on above: Performed By: #### C BC ####[facility] Inwmiqmnsj8[address] [place], [place] [address]Dr. Shahbaz Juan F Hematocrit (Bld) [Volume fraction] 41.2 % Normal 36.0-48.0 [facility] Comment on above: Performed By: #### C BC ####[facility] Wavfyomqwj3034 [place] [address]Dr. Shahbaz Rogel Hemoglobin (Bld) [Mass/Vol] 12.8 g/dL Normal 12.0-16.0 [facility] Comment on above: Performed By: #### C BC ####[facility] Faqlaukbby4209 [place] [address]Dr. Shahbaz Rogel IG # 0.10 10e3/ul Critically high 0.00-0.03 [facility] Comment on above: Performed By: #### C BC ####[facility] Xtalxcbhrr[address] [place], [place] [address]Dr. Shahbaz Rogel IG % 0.5 % Normal 0.0-0.5 [facility] Comment on above: Performed By: #### C BC ####[facility] Gpevqlvxoe[address] [place], [place] [address]DrChen Rogel LYMPH # 0.7 103/ul Critically low 1.2-3.8 [facility] Comment on above: Performed By: #### C BC ####[facility] Rbdhcqadkg[address] [place], [place] [address]Dr. Shahbaz Rogle Lymphocytes/100 WBC (Bld) 6.2 % Critically low 20.5-60.0 [facility] Comment on above: Result Comment: dif. not rqd. same as 01/18/22 Performed By: #### C BC ####[facility] Rxyunnrddd[address] [place], [place] [address]Dr. Shahbaz Rogel MANUAL DIFF REQ NO Normal [facility] Comment on above: Performed By: #### C BC ####[facility] Ghnwruinwm21[address] [place], [place] [address]Dr. Shahbaz Rogel MCH (RBC) [Entitic mass] 27.2 pg Normal 26.7-34.0 [facility] Comment on above: Performed By: #### C BC ####[facility] [address] [place], [place] [address]Dr. Shahbaz Rogel MCHC (RBC) [Mass/Vol] 31.1 g/dL Normal 29.9-35.2 [facility] Comment on above: Performed By: #### C BC ####[facility] [address]ayrvy[address] [place] [address]DrChen Shahbaz Juan F MCV (RBC) [Entitic vol] 87.5 fL Normal 81.0-99.0 [facility] Comment on above: Performed By: #### C BC ####[facility] Jsasufpwqs[address] [place], [place] [address]DrChen Rogel MONO # 0.2 103/ul Critically low 0.3-0.8 [facility] Comment on above: Performed By: #### C BC ####[facility] K[address]wzhwpzr[address] [place], [place] [address]DrChen Rogel Monocytes/100 WBC (Bld) 1.7 % Normal 1.7-12.0 [facility] Comment on above: Performed By: #### C BC ####[facility] Dtjbpnwqsm8[address] [place], [place] [address]DrChne Rogel NEUT # 9.8 103/ul Critically high 1.4-6.5 [facility] Comment on above: Performed By: #### C BC ####[facility] O[address]ufkbxumv[address] [place], [place] [address]DrChen Rogel Neutrophils/100 WBC (Bld) 91.6 % Critically high 43.0-75.0 [facility] Comment on above: Performed By: #### C BC ####[facility] Exxmnfjonz[address] [place], [place] [address]DrChen Rogel Platelet mean volume (Bld) [Entitic vol] 10.0 fL Normal 9.5-13.5 [facility] Comment on above: Performed By: #### C BC ####[facility] Ptesagwtdu6[address] [place], [place] [address]DrChen Rogel PLT 198 103/ul Normal 150-450 [facility] Comment on above: Performed By: #### C BC ####[facility] Ispikzqvpr[address] [place], [place] [address]DrChen Rogel RBC 4.71 106/ul Normal 4.20-5.40 [facility] Comment on above: Performed By: #### C BC ####[facility] Jgymhoejfd[address] [place] [address]Dr. Shahbaz Rogel WBC 10.7 103/ul Normal 4.0-11.0 [facility] Comment on above: Performed By: #### C BC ####[facility] Mvodpqvmvx57[address] [place] [address]Dr. Shahbaz Rogel POINT OF CARE GLUCOSEon 01-01 Glucose [Mass/Vol] 157 mg/dL Critically high 74-106 [facility] Comment on above: Performed By: #### P OCGLUC ####[facility] Znxdehpzed8[address] [place], [place] [address]Dr. Shahbaz Rogel Glucose [Mass/Vol] 225 mg/dL Critically high 74-106 [facility] Comment on above: Performed By: #### P OCGLUC ####[facility] Aqaqqlbycq[address] [place], [place] [address]Dr. Shahbaz Rogel Glucose [Mass/Vol] 185 mg/dL Critically high 74-106 [facility] Comment on above: Performed By: #### P OCGLUC ####[facility] Ialndksmti[address] [place], [place] [address]Dr. Shahbaz Rogel Glucose [Mass/Vol] 134 mg/dL Critically high 74-106 [facility] Comment on above: Performed By: #### P OCGLUC ####[facility] Thlhggifid17[address] [place], [place] [address]Dr. Shahbaz Juan F PROF 14(COMP METB)on 022 Albumin [Mass/Vol] 3.0 g/dL Critically low 3.4-5.0 [facility] [place] [facility] Comment on above: Performed By: #### C MP ####[facility] Qjqevpocfg[address] [place], [place] [address]Dr. Shahbaz Rogel Albumin/Globulin [Mass ratio] 0.9 {ratio} Normal [facility] Comment on above: Performed By: #### C MP ####[facility] Hytjbqmqkp26[address] [place] [address]Dr. Shahbaz Rogel ALP [Catalytic activity/Vol] 81 U/L Normal 46-116 [facility] Comment on above: Performed By: #### C MP ####[facility] Ttmnpfbscl[address] [place], [place] [address]Dr. Shahbaz Juan F ALT [Catalytic activity/Vol] 14 U/L Normal 14-59 [facility] Comment on above: Performed By: #### C MP ####[facility] Tigzmnjajr9734[address] [place], [place] [address]Dr. Lilajarrod Juan F Anion gap [Moles/Vol] 13.1 mmol/L Normal [facility] Comment on above: Performed By: #### C MP ####[facility] Zukohqqgrq6723[address] [place], [place] [address]Dr. Shahbaz Juan F AST [Catalytic activity/Vol] 20 U/L Normal 15-37 [facility] Comment on above: Performed By: #### C MP ####[facility] Eabykvvgom[address] [place], [place] [address]Dr. Shahbaz Juan F Bilirubin [Mass/Vol] 0.3 mg/dL Normal 0.2-1.3 [facility] Comment on above: Performed By: #### C MP ####[facility] Zcxohbwzvd7925[address] [place], [place] [address]Dr. Lilajarrod Rogel Calcium [Mass/Vol] 8.5 mg/dL Normal 8.5-10.1 [facility] Comment on above: Performed By: #### C MP ####[facility] Uroqbxwrfz8774[address] [place], [place] [address]Dr. Lilajarrod Rogel Chloride [Moles/Vol] 107 mmol/L Normal 98-107 [facility] Comment on above: Performed By: #### C MP ####[facility] Khdzfvater[address] [place], [place] [address]Dr. Shahbaz Rogel CO2 [Moles/Vol] 24.0 mmol/L Normal 22.0-30.0 [facility] Comment on above: Performed By: #### C MP ####[facility] Gqpsigkfee7[address] [place], [place] [address]Dr. Shahbaz Rogel Creatinine [Mass/Vol] 1.00 mg/dL Normal 0.52-1.04 [facility] Comment on above: Performed By: #### C MP ####[facility] Opwdpcmhst[address] [place] [phone]. Shahbaz Juan F EGFR-AF UKRAINIAN >60 Normal >=60 [facility] Comment on above: Performed By: #### C MP ####[facility] Ivedrlmwge3087 [place] [phone]. Shahbaz Rogel EGFR-NON AF UKRAINIAN 57 mL/min/1.73m2 Critically low >=60 [facility] Comment on above: Performed By: #### C MP ####[facility] Czfujutwll35[address] [place] [address]Dr. Lilajarrod Rogel Globulin (S) [Mass/Vol] 3.4 g/dL Normal [facility] Comment on above: Performed By: #### C MP ####[facility] Zyhrqdreus[address] [place], [place] [address]Dr. Shahbaz Rogel Glucose [Mass/Vol] 153 mg/dL Critically high 74-106 [facility] Comment on above: Performed By: #### C MP ####[facility] Nuagpdjgna4[address] [place], [place] [address]Dr. Shahbaz Rogel Potassium [Moles/Vol] 4.1 mmol/L Normal 3.4-5.0 [facility] Comment on above: Performed By: #### C MP ####[facility] Igjijicfdp32[address] [place], [place] [address]Dr. Shahbaz Rogel Protein [Mass/Vol] 6.4 g/dL Normal 6.1-8.2 [facility] Comment on above: Performed By: #### C MP ####[facility] Mnyzftnzcq75[address] [place], [place] [address]Dr. Shahbaz Rogel Sodium [Moles/Vol] 140 mmol/L Normal 137-145 [facility] Comment on above: Performed By: #### C MP ####[facility] [address]qxbcd[address] [place], [place] [address]Dr. Shahbaz Rogel Urea nitrogen [Mass/Vol] 26.0 mg/dL Critically high 7.0-18.0 [facility] Comment on above: Performed By: #### C MP ####[facility] Ctcuykxxxy[address] [place], [place] [address]Dr. Shahbaz Rogel Urea nitrogen/Creatinine [Mass ratio] 26.5 mg/mg Normal [facility] Comment on above: Performed By: #### C MP ####[facility] Xdkyeirilb1710[address] [place], [place] [address]Dr. Shahbaz Rogel BNPon 01-19-2022 Natriuretic peptide B (Bld) [Mass/Vol] 117.0 pg/mL Normal <=900.0 [facility] Comment on above: Performed By: #### B MACHINE CEMENTER AND FOLDER, CMP ####[facility] Jfqenyucrt[address] [place], [place] [address]Dr. Shahbaz Rogel CBC AUTO DIFFon 01-19-2022 BASO # 0.0 103/ul Normal 0.0-0.1 [facility] Comment on above: Performed By: #### C BC ####[facility] Bzqwjnnves76[address] [place], [place] [address]Dr. Shahbaz Juan F Basophils/100 WBC (Bld) 0.0 % Critically low 0.2-2.0 [facility] Comment on above: Performed By: #### C BC ####[facility] Jyvztflzkv[address] [place], [place] [address]Dr. Shahbaz Rogel EO # 0.0 103/ul Normal 0.0-0.7 [facility] Comment on above: Performed By: #### C BC ####[facility] Mmzrdkhkqq59[address] [place], [place] [address]Dr. Shahbaz Juan F Eosinophils/100 WBC (Bld) 0.0 % Critically low 0.9-7.0 [facility] Comment on above: Performed By: #### C BC ####[facility] K[address]ocpbljw[address] [place], [place] [address]Dr. Shahbaz Rogel Erythrocyte distribution width (RBC) [Ratio] 13.4 % Normal 11.0-15.0 [facility] Comment on above: Performed By: #### C BC ####[facility] U[address]fgqylea8[address] [place] [address]Dr. Shahbaz Rogel Hematocrit (Bld) [Volume fraction] 46.3 % Normal 36.0-48.0 [facility] Comment on above: Performed By: #### C BC ####[facility] Stqeswttgb32[address] [place] [address]Dr. Shahbaz Rogel Hemoglobin (Bld) [Mass/Vol] 14.3 g/dL Normal 12.0-16.0 [facility] Comment on above: Performed By: #### C BC ####[facility] Tzjrxaknms[address] [place] [address]Dr. Shahbaz Rogel IG # 0.00 10e3/ul Normal 0.00-0.03 [facility] Comment on above: Performed By: #### C BC ####[facility] Xsgmeqnvsp6140 [place] [address]Dr. Lilajarrod Rogle IG % 0.0 % Normal 0.0-0.5 [facility] Comment on above: Performed By: #### C BC ####[facility] Mdawaavjor35[address] [place] [address]Dr. Shahbaz Juan F LYMPH # 0.6 103/ul Critically low 1.2-3.8 [facility] Comment on above: Performed By: #### C BC ####[facility] Ybqpifindk[address] [place] [address]Dr. Lilajarrod Rogel Lymphocytes/100 WBC (Bld) 14.2 % Critically low 20.5-60.0 [facility] Comment on above: Performed By: #### C BC ####[facility] S[address]urxosa[address] [place] [address]Dr. Lilajarrod Rogel MANUAL DIFF REQ NO Normal [facility] Comment on above: Performed By: #### C BC ####[facility] Hwpfkodbkn[address] [place], [place] [address]Dr. Shahbaz Rogel MCH (RBC) [Entitic mass] 27.7 pg Normal 26.7-34.0 [facility] Comment on above: Performed By: #### C BC ####[facility] Wbjtfxvyca7685 [place] [phone]. Shahbaz Rogel MCHC (RBC) [Mass/Vol] 30.9 g/dL Normal 29.9-35.2 [facility] Comment on above: Performed By: #### C BC ####[facility] Fnpnjibfea299[address] [place] [phone]. Shahbaz Roegl MCV (RBC) [Entitic vol] 89.6 fL Normal 81.0-99.0 [facility] Comment on above: Performed By: #### C BC ####[facility] Ugybaldhvz0778 [place] [phone]. Shahbaz Rogel MONO # 0.0 103/ul Critically low 0.3-0.8 [facility] Comment on above: Performed By: #### C BC ####[facility] Nkukahwwgu[address] [place], [place] [address]Dr. Lilajarrod Rogel Monocytes/100 WBC (Bld) 1.0 % Critically low 1.7-12.0 [facility] Comment on above: Performed By: #### C BC ####[facility] Kohvwnhjbx26[address] [place], [place] [address]Dr. Shahbaz Rogel NEUT # 3.5 103/ul Normal 1.4-6.5 [facility] Comment on above: Performed By: #### C BC ####[facility] Lgmmikrtmf7[address] [place], [place] [address]Dr. Shahbaz Rogel Neutrophils/100 WBC (Bld) 84.8 % Critically high 43.0-75.0 [facility] Comment on above: Performed By: #### C BC ####[facility] Idgijubdcy0047 [place] [phone]. Shahbaz Rogel Platelet mean volume (Bld) [Entitic vol] 9.8 fL Normal 9.5-13.5 [facility] Comment on above: Performed By: #### C BC ####[facility] S[address]ie[address]oj[address] [place], [place] [address]Dr. Shahbaz Juan F PLT 185 103/ul Normal 150-450 [facility] Comment on above: Performed By: #### C BC ####[facility] Ounigxhuzl8[address] [place] [phone]. Shahbaz Rogel RBC 5.17 106/ul Normal 4.20-5.40 [facility] Comment on above: Performed By: #### C BC ####[facility] Orkstzzquy5[address] [place] [address]Dr. Shahbaz Rogel WBC 4.2 103/ul Normal 4.0-11.0 [facility] Comment on above: Performed By: #### C BC ####[facility] Avaxlsomuc[address] [place] [address]Dr. Shahbaz Rogel LACTATE/LACTIC ACIDon 2021 Lactate [Moles/Vol] 1.7 mmol/L Normal 0.7-2.0 [facility] Comment on above: Performed By: #### L ACT ####[facility] Ecdfsogdjn0799 [place] [address]Dr. Shahbaz Rogel POINT OF CARE GLUCOSEon 01-01 Glucose [Mass/Vol] 173 mg/dL Critically high -106 [facility] Comment on above: Performed By: #### P OCGLUC ####[facility] Xjmgvdsaiw7746 [place] [address]Dr. Shahbaz Rogel Glucose [Mass/Vol] 181 mg/dL Critically high -106 [facility] Comment on above: Performed By: #### P OCGLUC ####[facility] Bircapdgnw8198 [place] [address]Dr. Shahbaz Rogel Glucose [Mass/Vol] 154 mg/dL Critically high -106 [facility] Comment on above: Performed By: #### P OCGLUC ####[facility] Npmseujnyv8894 [place] [address]Dr. Shahbaz Rogel PROF 14(COMP METB)on 022 Albumin [Mass/Vol] 3.5 g/dL Normal 3.4-5.0 [facility] Comment on above: Performed By: #### B MACHINE CEMENTER AND FOLDER, CMP ####[facility] Uczsdwjege6505 [place] [address]Dr. Shahbaz Rogel Albumin/Globulin [Mass ratio] 0.9 {ratio} Normal [facility] Comment on above: Performed By: #### B MACHINE CEMENTER AND FOLDER, CMP ####[facility] Cotllqpjgd4659 [place] [address]Dr. Shahbaz Rogel ALP [Catalytic activity/Vol] 107 U/L Normal 46-116 [facility] Comment on above: Performed By: #### B MACHINE CEMENTER AND FOLDER, CMP ####[facility] Nwszugomcu9893 [place] [address]Dr. Shahbaz Juan F ALT [Catalytic activity/Vol] 18 U/L Normal 14-59 [facility] Comment on above: Performed By: #### B MACHINE CEMENTER AND FOLDER, CMP ####[facility] Shalhvsman57[address] [place] [address]Dr. Lilajarrod Juan F Anion gap [Moles/Vol] 14.1 mmol/L Normal [facility] Comment on above: Performed By: #### B MACHINE CEMENTER AND FOLDER, CMP ####[facility] Jrzoohxzoo[address]186[address] [place], [place] [address]Dr. Lilajarrod Rogel AST [Catalytic activity/Vol] 19 U/L Normal 15-37 [facility] Comment on above: Performed By: #### B MACHINE CEMENTER AND FOLDER, CMP ####[facility] Jvxgasdgkc5076 [place] [address]Dr. Lilajarrod Juan F Bilirubin [Mass/Vol] 0.5 mg/dL Normal 0.2-1.3 [facility] Comment on above: Performed By: #### B MACHINE CEMENTER AND FOLDER, CMP ####[facility] Yngxqvbmev8922 [place] [address]Dr. Shahbaz Rogel Calcium [Mass/Vol] 8.5 mg/dL Normal 8.5-10.1 [facility] Comment on above: Performed By: #### B MACHINE CEMENTER AND FOLDER, CMP ####[facility] Rizlbgdowo26[address] [place] [address]Dr. Shahbaz Rogel Chloride [Moles/Vol] 103 mmol/L Normal 98-107 [facility] Comment on above: Performed By: #### B MACHINE CEMENTER AND FOLDER, CMP ####[facility] Mjehmvmqdu5933 [place] [address]Dr. Shahbaz Rogel CO2 [Moles/Vol] 25.4 mmol/L Normal 22.0-30.0 [facility] Comment on above: Performed By: #### B MACHINE CEMENTER AND FOLDER, CMP ####[facility] Iqrqqupemm7264 [place] [address]Dr. Shahbaz Rogel Creatinine [Mass/Vol] 1.48 mg/dL Critically high 0.52-1.04 [facility] Comment on above: Performed By: #### B MACHINE CEMENTER AND FOLDER, CMP ####[facility] Oonppgnnqm[address] [place], [place] [address]Dr. Shahbaz Rogel EGFR-AF UKRAINIAN 44 mL/min/1.73m2 Critically low >=60 [facility] Comment on above: Performed By: #### B MACHINE CEMENTER AND FOLDER, CMP ####[facility] Avpowiwoyc8354[address] [place], [place] [address]Dr. Shahbaz Rogel EGFR-NON AF UKRAINIAN 36 mL/min/1.73m2 Critically low >=60 [facility] Comment on above: Performed By: #### B MACHINE CEMENTER AND FOLDER, CMP ####[facility] Svwcnzqjjb1205[address] [place], [place] [address]Dr. Shahbaz Rogel Globulin (S) [Mass/Vol] 3.7 g/dL Normal [facility] Comment on above: Performed By: #### B MACHINE CEMENTER AND FOLDER, CMP ####[facility] Zafealmnal[address] [place], [place] [address]Dr. Shahbaz Rogel Glucose [Mass/Vol] 203 mg/dL Critically high 74-106 [facility] Comment on above: Performed By: #### B MACHINE CEMENTER AND FOLDER, CMP ####[facility] Xdnziysmpg1948[address] [place], [place] [address]Dr. Shahbaz Rogel Potassium [Moles/Vol] 3.5 mmol/L Normal 3.4-5.0 [facility] Comment on above: Performed By: #### B MACHINE CEMENTER AND FOLDER, CMP ####[facility] Tbwpjwzyhv9253[address] [place], [place] [address]Dr. Shahbza Rogel Protein [Mass/Vol] 7.2 g/dL Normal 6.1-8.2 [facility] Comment on above: Performed By: #### B MACHINE CEMENTER AND FOLDER, CMP ####[facility] Tfvwzbtgth[address] [place], [place] [address]Dr. Shahbaz Rogel Sodium [Moles/Vol] 139 mmol/L Normal 137-145 [facility] Comment on above: Performed By: #### B MACHINE CEMENTER AND FOLDER, CMP ####[facility] Lojdidxtdz998[address] [place], [place] [address]Dr. Shahbaz Rogel Urea nitrogen [Mass/Vol] 17.0 mg/dL Normal 7.0-18.0 [facility] Comment on above: Performed By: #### B MACHINE CEMENTER AND FOLDER, CMP ####[facility] Bkwiaqksuf6242[address] [place], [place] [address]Dr. Shahbaz Rogel Urea nitrogen/Creatinine [Mass ratio] 11.5 mg/mg Normal [facility] Comment on above: Performed By: #### B MACHINE CEMENTER AND FOLDER, CMP ####[facility] Jlwufvilje740[address] [place], [place] [address]Dr. Shahbaz Rogel BNPon 01-18-2022 Natriuretic peptide B (Bld) [Mass/Vol] 55.0 pg/mL Normal <=900.0 [facility] Comment on above: Performed By: #### C MP, BNP, HSTROPN ####[facility] Egiiplnmew7366[address] [place], [place] [address]Dr. Shahbaz Juan F CBC W MANUAL DIFFon 01-19-20 ATYPICAL LYMPH # 0.12 103/ul Normal [facility] Comment on above: Performed By: #### C CAIN ####[facility] Uihknzjerd20[address] [place] [address]Dr. Shahbaz Juan F ATYPICAL LYMPH % 2 % Normal [facility] Comment on above: Performed By: #### C BCMAN ####[facility] Nupvvxcqld7995[address] [place], [place] [address]Dr. Lilajarrod Rogel BAND # 0.0 103/ul Normal 0.0-0.3 [facility] Comment on above: Performed By: #### C BCMAN ####[facility] Gojcmnlrwd4[address] [place], [place] [address]Dr. Shahbaz Rogel BAND % 0 % Normal 0-5 [facility] Comment on above: Performed By: #### C CAIN ####[facility] Ksttqgarjq9[address] [place], [place] [address]Dr. Shahbaz Rogel BASOM # 0.00 103/ul Normal 0.00-0.10 [facility] Comment on above: Performed By: #### C BCBRICE ####[facility] Pirycfelth69[address] [place] [address]Dr. Shahbaz Rogel BASOM % 0.0 % Critically low 0.2-2.0 [facility] Comment on above: Performed By: #### C BCMAN ####[facility] Tdktkvedxz7224 [place] [address]Dr. Shahbaz Rogel BLAST # Normal [facility] Comment on above: Performed By: #### C BCBRICE ####[facility] Intyjlfamb4945 [place] [address]Dr. Shahbaz Rogel BLAST % Normal [facility] Comment on above: Performed By: #### C CAIN ####[facility] Sckfbssjox19[address] [place], [place] [address]Dr. Shahbaz Rogel CORRECTED WBC Normal 4.0-11.0 [facility] Comment on above: Performed By: #### C BCBRICE ####[facility] Wkfjbnpvjd0289 [place] [address]Dr. Shahbaz Rogel EOS # 0.25 103/ul Normal 0.00-0.70 [facility] Comment on above: Performed By: #### C CAIN ####[facility] Ygwsaggzdx6770 [place] [address]Dr. Shahbaz Rogel EOS% 4.0 % Normal 0.9-7.0 [facility] Comment on above: Performed By: #### C BCBRICE ####[facility] Bgopskjxkj3471 [place] [address]Dr. Shahbaz Rogel HCT 46.8 % Normal 36.0-48.0 [facility] Comment on above: Performed By: #### C BCBRICE ####[facility] Mndmaahrzg4637 [place] [address]Dr. Shahbaz Rogel HGB 14.9 g/dl Normal 12.0-16.0 [facility] Comment on above: Performed By: #### C CAIN ####[facility] Vsjmlbcysj94[address] [place], [place] [address]St. Shahbaz Rogel LYMPHM # 0.68 103/ul Critically low 1.20-3.80 [facility] Comment on above: Performed By: #### C CAIN ####[facility] Hljafkwcws8286 [place], [place] [address]Or. Shahbaz Rogel LYMPHM% 11.0 % Critically low 20.5-60.0 [facility] Comment on above: Performed By: #### C CAIN ####[facility] Qojlquydmm9936 [place], [place] [address]Ts. Shahbaz Rogel MCH 27.6 pg Normal 26.7-34.0 [facility] Comment on above: Performed By: #### C CAIN ####[facility] Qakaucuxzh6073 [place], [place] [address]Ui. Shahbaz Rogel MCHC 31.8 g/dl Normal 29.9-35.2 [facility] Comment on above: Performed By: #### C CAIN ####[facility] Krvusioega8734 [place] [phone]. Shahbaz Rogel MCV 86.8 fL Normal 81.0-99.0 [facility] Comment on above: Performed By: #### Cheri BARLOW ####[facility] Mpkajjpfqf6079 [place] [phone]. Shahbaz Rogel METAMYELOCYTE # Normal [facility] Comment on above: Performed By: #### C CAIN ####[facility] Soszsjbqex3703 [place], [place] [address]Hn. Shahbaz Rogel METAMYELOCYTE % Normal [facility] Comment on above: Performed By: #### C CAIN ####[facility] Wmfbsefhkg7666 [place] [phone]. Shahbaz Rogel MONOM# 0.19 103/ul Critically low 0.30-0.80 [facility] Comment on above: Performed By: #### C CAIN ####[facility] Tpcdqjqhbc6433 [place], [place] [address]Xp. Shahbaz Rogel MONOM% 3.0 % Normal 1.7-12.0 [facility] Comment on above: Performed By: #### C CAIN ####[facility] Nekjwbuzsw5430 [place] [phone]. Shahbaz Rogel MPV 9.6 fL Normal 9.5-13.5 [facility] Comment on above: Performed By: #### C CAIN ####[facility] Traujpgkbh3432 [place], [place] [address]Kr. Shahbaz Rogel MYELOCYTE # Normal [facility] Comment on above: Performed By: #### C CAIN ####[facility] Akfmfpbqtn5640 [place], [place] [address]Ky. Shahbaz Rogel MYELOCYTE % Normal [facility] Comment on above: Performed By: #### C CAIN ####[facility] Xpszfkobhr9087 [place] [phone]. Shahbaz Rogel NRBC Normal [facility] Comment on above: Performed By: #### Cheri BARLOW ####[facility] Xmkztucasp7302 [place] [phone]. Shahbaz Rogel PLT 203 103/ul Normal 150-450 [facility] Comment on above: Performed By: #### C CAIN ####[facility] Ujszrnzaef3566 [place] [phone]. Shahbaz Rogel RBC 5.39 106/ul Normal 4.20-5.40 [facility] Comment on above: Performed By: #### Cheri BARLOW ####[facility] Kynjvsufbr4081 [place] [phone]. Shahbaz Rogel RDW 13.7 % Normal 11.0-15.0 [facility] Comment on above: Performed By: #### C CAIN ####[facility] Kiyggdvlgh1423 [place] [id number]. Shahbaz Rogel SEG # 4.96 103/ul Normal 1.40-6.50 [facility] Comment on above: Performed By: #### C CAIN ####[facility] Utfzitpnzk1462 [place] [id number]. Shahbaz Rogel SEG % 80.0 % Critically high 43.0-75.0 [facility] Comment on above: Performed By: #### C BCMAN ####[facility] Fuseuqiyrh6961 [place], [place] [address]Qa. Shahbaz Rogel WBC 6.2 103/ul Normal 4.0-11.0 [facility] Comment on above: Performed By: #### C BCMAN ####[facility] Fkfhmwdbps7004 [place], [place] [address]Xa. Shahbaz Rogel CULTURE BLOODon 01-18-2022 Microscopic examination of blood, culture Culture Observations: No growth at 5 days. Normal [facility] Comment on above: Performed By: #### B LDCX2 ####[facility] Turkmppdqq8122 [place] [phone]. Shahbaz Rogel Microscopic examination of blood, culture Culture Observations: No growth at 5 days Normal [facility] Comment on above: Performed By: #### B LDCX1 ####[facility] Nhkxgqpkqr9749 [place] [phone]. Shahbaz Rogel Covid-19 PCR (CVDTB)on 12-31 SARS-CoV-2 (COVID-19) RNA PAVAN+probe Ql (Unsp spec) Not detected Normal NOT DETECTED [facility] Comment on above: Result Comment: This test is not yet approved or cleared by the [place] FDA. When there are no FDA-approved or cleared tests available, and other criteria are met, FDA can make tests available under an emergency access mechanism called an Emergency Use Authorization (EUA). The EUA for this test is supported by the Test Director of Health and Human Service's (HHS's) declaration [...] with SARS-CoV-2. Performed By: #### C VDTBH ####[facility] S[address]pfvqews[address] [place], [place] [address]Dr. Shahbaz Rogel D-DIMERon 01-18-2022 D-DIMER 0.29 mg/L FEU Normal 0.19-0.50 [facility] Comment on above: Performed By: #### D DIM ####[facility] Meetwgheht32[address] [place], [place] [address]Dr. Shahbaz [facility] D-DIMER COMMENTS SEE BELOW Normal [facility] Comment on above: Result Comment: Incr eases [...] generalized hospitalization. Performed By: #### D DIM ####[facility] Qgrpmdntww[address] [place], [place] [address]Dr. [facility] INFLUENZA A AND B AGon 01-18 INFLUANEGH SEE BELOW Normal [facility] Comment on above: Result Comment: Nega tive for Flu A protein angiten. Infection due to Flu A cannot be ruled out. Flu A angiten in the sample may be below the detection limit of the test. Performed By: #### I NFLUAB ####[facility] [address] [place], [place] [address]Dr. Shahbaz Rogel INFLUBNEGH SEE BELOW Normal [facility] Comment on above: Result Comment: Nega tive for Flu B protein antigen. Infection due to Flu B cannot be ruled out. Flu B antigen in the sample may be below the detection limit of the test. Performed By: #### I NFLUAB ####[facility] [address] [place], [place] [address]Dr. [facility] INFLUENZA A AG Negative Normal NEGATIVE SEE COMMENT [facility] Comment on above: Performed By: #### I NFLUAB ####[facility] [address] [place] [address]Dr. Shahbaz Rogel INFLUENZA B AG Negative Normal NEGATIVE SEE COMMENT [facility] Comment on above: Performed By: #### I NFLUAB ####[facility] [address]em[address] [place], [place] [address]Dr. Shahbaz Rogel INTERNAL CONTROLS Within Normal Limits Normal Wi thin Normal Limits [facility] Comment on above: Performed By: #### I NFLUAB ####[facility] Sidzyrpasy[address] [place], [place] [address]Dr. Shahbaz Rogel LACTATE/LACTIC ACIDon 2021 Lactate [Moles/Vol] 1.0 mmol/L Normal 0.7-2.0 [facility] Comment on above: Performed By: #### L ACT ####[facility] [address] [place], [place] [address]Dr. Shahbaz Rogel PROF 14(COMP METB)on 022 Albumin [Mass/Vol] 3.8 g/dL Normal 3.4-5.0 [facility] Comment on above: Performed By: #### C MP, BNP, HSTROPN ####[facility] Sqlpxczuim[address] [place], [place] [address]Dr. Shahbaz Rogel Albumin/Globulin [Mass ratio] 1.0 {ratio} Normal [facility] Comment on above: Performed By: #### C MP, BNP, HSTROPN ####[facility] [address] [place], [place] [address]Dr. Shahbaz Rogel ALP [Catalytic activity/Vol] 116 U/L Normal 46-116 [facility] Comment on above: Performed By: #### C MP, BNP, HSTROPN ####[facility] Fos[address]nfgvl[address] [place] [address]Dr. Shahbaz Rogel ALT [Catalytic activity/Vol] 16 U/L Normal 14-59 [facility] Comment on above: Performed By: #### C MP, BNP, HSTROPN ####[facility] D[address]gtxjti[address] [place] [address]Dr. Shahbaz Rogel Anion gap [Moles/Vol] 9.4 mmol/L Normal [facility] Comment on above: Performed By: #### C MP, BNP, HSTROPN ####[facility] W[address]xbglciyy[address] [place] [address]Dr. Shahbaz Rogel AST [Catalytic activity/Vol] 19 U/L Normal 15-37 [facility] Comment on above: Performed By: #### C MP, BNP, HSTROPN ####[facility] Psgtzhaqnl[address] [place] [address]Dr. Shahbaz Rogel Bilirubin [Mass/Vol] 0.5 mg/dL Normal 0.2-1.3 [facility] Comment on above: Performed By: #### C MP, BNP, HSTROPN ####[facility] [address] [place], [place] [address]Dr. Shahbaz Rogel Calcium [Mass/Vol] 8.9 mg/dL Normal 8.5-10.1 [facility] Comment on above: Performed By: #### C MP, BNP, HSTROPN ####[facility] [address]if[address]xbpu[address] [place], [place] [address]Dr. Shahbaz Rogel Chloride [Moles/Vol] 104 mmol/L Normal 98-107 [facility] Comment on above: Performed By: #### C MP, BNP, HSTROPN ####[facility] [address]wcm[address] [place], [place] [address]Dr. Shahbaz Rogel CO2 [Moles/Vol] 27.2 mmol/L Normal 22.0-30.0 [facility] Comment on above: Performed By: #### C MP, BNP, HSTROPN ####[facility] [address]wh[address]be[address] [place], [place] [address]Dr. Shahbaz Rogel Creatinine [Mass/Vol] 0.99 mg/dL Normal 0.52-1.04 [facility] Comment on above: Performed By: #### C MP, BNP, HSTROPN ####[facility] [address]lcv[address] [place], [place] [address]Dr. Shahbaz Rogel EGFR-AF UKRAINIAN >60 Normal >=60 [facility] Comment on above: Performed By: #### C MP, BNP, HSTROPN ####[facility] B[address]arcjyhs[address] [place] [address]Dr. Shahbaz Rogel EGFR-NON AF UKRAINIAN 58 mL/min/1.73m2 Critically low >=60 [facility] Comment on above: Performed By: #### C MP, BNP, HSTROPN ####[facility] [address]goesnr[address] [place] [address]Dr. Shahbaz Rogel Globulin (S) [Mass/Vol] 3.8 g/dL Normal [facility] Comment on above: Performed By: #### C MP, BNP, HSTROPN ####[facility] Qfmtzyedxc[address] [place] [address]Dr. Shahbaz Rogel Glucose [Mass/Vol] 104 mg/dL Normal 74-106 [facility] Comment on above: Performed By: #### C MP, BNP, HSTROPN ####[facility] L[address]kgpdmf[address] [place] [address]Dr. Shahbaz Rogel Potassium [Moles/Vol] 3.6 mmol/L Normal 3.4-5.0 [facility] Comment on above: Performed By: #### C MP, BNP, HSTROPN ####[facility] [address]pc[address]iin[address] [place], [place] [address]Dr. Shahbaz Rogel Protein [Mass/Vol] 7.6 g/dL Normal 6.1-8.2 [facility] Comment on above: Performed By: #### C MP, BNP, HSTROPN ####[facility] [address]ksx[address] [place], [place] [address]Dr. Shahbaz Rogel Sodium [Moles/Vol] 137 mmol/L Normal 137-145 [facility] Comment on above: Performed By: #### C MP, BNP, HSTROPN ####[facility] [address]kwmglf[address] [place], [place] [address]Dr. Shahbaz Rogel Urea nitrogen [Mass/Vol] 9.0 mg/dL Normal 7.0-18.0 [facility] Comment on above: Performed By: #### C MP, BNP, HSTROPN ####[facility] [address]auth[address] [place], [place] [address]Dr. Shahbaz Rogel Urea nitrogen/Creatinine [Mass ratio] 9.1 mg/mg Normal [facility] Comment on above: Performed By: #### C MP, BNP, HSTROPN ####[facility] [address]dr[address]har[address] [place] [id number]. Shahbaz Rogel TROPONIN, HIGH SENSITIVITYon 01-18-2022 HSTROP 6.4 pg/mL Normal 4.0-35.5 [facility] Comment on above: Result Comment: CUT- OFF POINTS HAVE BEEN ESTABLISHED BASED ON THE FOURTH UNIVERSAL DEFINITIONS OF MYOCARDIALINFARCTION. THE UPPER REFERENCE LIMIT (URL) OF TROPONIN, DEFINED THE 99TH PERCENTILE OFcTnI DISTRIBUTION IN A REFERENCE POPULATION, HAS BEEN CONFIRMED THE DECISION THRESHOLDFOR DC DIAGNOSIS. Performed By: #### C MP, BNP, HSTROPN ####[facility] [address]rmpeqdrq[address] [place] [id number]. Shahbaz Rogel XR CHEST 2 Von 01-18-2022 XR CHEST 2 V Normal [facility] URINALYSIS REFLEXon 04-04-20 20 Appearance (U) CLEAR Normal CLEAR [facility] Comment on above: Order Comment: No: D o not add to previous draw Performed By: #### 1 0070, 10635, 54232, 33244, 19215, 92102 #### [facility] [address] [place] [address], [facility] Bilirubin [Mass/Vol] Negative Normal NEGATIVE [facility] Comment on above: Order Comment: No: D o not add to previous draw Performed By: #### 1 0070, 48740, 59916, 55832, 15090, 34203 #### [facility] [address] [place] [address], [place] BLOOD Negative Normal NEGATIVE [facility] Comment on above: Order Comment: No: D o not add to previous draw Performed By: #### 1 0070, 77977, 47912, 65662, 71133, 55478 #### [facility] [address] [place] [address], [place] Color (U) YELLOW Normal YELLOW [facility] Comment on above: Order Comment: No: D o not add to previous draw Performed By: #### 1 0070, 77064, 22625, 64181, 76504, 54389 #### [facility] [address] [place] [address], [facility] Glucose [Mass/Vol] Negative Normal NEGATIVE [facility] Comment on above: Order Comment: No: D o not add to previous draw Performed By: #### 1 0070, 17206, 57467, 96273, 73815, 26599 #### [facility] [address] [place] [address], [facility] KETONE Negative Normal NEGATIVE [facility] Comment on above: Order Comment: No: D o not add to previous draw Performed By: #### 1 0070, 31077, 13782, 00876, 44929, 34935 #### [facility] [address] [facility] [place] [address], [facility] LEUK ELIU Negative Normal NEGATIVE [facility] Comment on above: Order Comment: No: D o not add to previous draw Performed By: #### 1 0070, 19744, 27322, 86490, 18511, 87234 #### [facility] [address] [facility] [address], [facility] MICRO NOT DONE Normal [facility] Comment on above: Order Comment: No: D o not add to previous draw Result Comment: Micr oscopics not performed on urines with negative chemical reactions unless requested in original order Performed By: #### 1 0070, 94937, 01007, 71300, 38890, 75588 #### [facility] [address] [place] [address], [place] Nitrite Ql (U) Negative Normal NEGATIVE [facility] Comment on above: Order Comment: No: D o not add to previous draw Performed By: #### 1 0070, 56801, 31631, 05224, 66284, 88978 #### [facility] [address] [place] [address], [facility] pH (Bld) 5.0 Normal 5.0-8.0 [facility] Comment on above: Order Comment: No: D o not add to previous draw Performed By: #### 1 0070, 35656, 93366, 55780, 60934, 89117 #### [facility] [address] [place] [address], [facility] Protein (U) [Mass/Vol] Negative Normal NEGATIVE Th e [facility] Comment on above: Order Comment: No: D o not add to previous draw Performed By: #### 1 0070, 42798, 05060, 87870, 56452, 73440 #### [facility] [address] [place] [address], [facility] SPEC GRAV 1.012 Low 1.015-1.02 0 [facility] Comment on above: Order Comment: No: D o not add to previous draw Performed By: #### 1 0070, 64511, 45199, 94902, 38889, 58997 #### [facility] [address] [place] [address], [facility] BASIC METABOLIC PANELon 07-0 2-2020 Calcium [Mass/Vol] 8.4 mg/dL Low 8.6-10.3 [facility] Comment on above: Order Comment: No: D o not add to previous draw Performed By: #### 1 0070, 62950, 92590, 82818, 93581, 46119 #### [facility] [address] [place] [address], [place] Chloride [Moles/Vol] 101 mmol/L Normal 98-107 [facility] Comment on above: Order Comment: No: D o not add to previous draw Performed By: #### 1 0070, 59199, 82773, 63249, 87432, 70079 #### [facility] [address] [place] [address], [place] CO2 [Moles/Vol] 29 mmol/L Normal 21-31 [facility] Comment on above: Order Comment: No: D o not add to previous draw Performed By: #### 1 0070, 95384, 16523, 01227, 06600, 92367 #### [facility] [address] [place] [address], [place] Creatinine [Mass/Vol] 0.79 mg/dL Normal 0.60-1.20 [facility] Comment on above: Order Comment: No: D o not add to previous draw Performed By: #### 1 0070, 22389, 56111, 13032, 67024, 23992 #### [facility] [address] [place] [address], [place] GFR/1.73 sq M predicted among blacks MDRD (S/P/Bld) [Vol rate/Area] mL/min/{1.73_m2} Normal >60 [facility] Comment on above: Order Comment: No: D o not add to previous draw Performed By: #### 1 0070, 33972, 04356, 37457, 82787, 80469 #### [facility] [address] [place] [address], [place] GFR/1.73 sq M predicted among non-blacks MDRD (S/P/Bld) [Vol rate/Area] mL/min/{1.73_m2} Normal >60 [facility] Comment on above: Order Comment: No: D o not add to previous draw Performed By: #### 1 0070, 96480, 18093, 40406, 95155, 49359 #### [facility] [address] [place] [address], [place] Glucose [Mass/Vol] 91 mg/dL Normal 70-100 [facility] Comment on above: Order Comment: No: D o not add to previous draw Performed By: #### 1 0070, 03539, 40832, 14226, 99061, 16817 #### [facility] [address] [place] [address], [place] Potassium [Moles/Vol] 3.9 mmol/L Normal 3.5-5.1 [facility] Comment on above: Order Comment: No: D o not add to previous draw Performed By: #### 1 0070, 10003, 54603, 34274, 71081, 48120 #### [facility] [address] [place] [address], [facility] Sodium [Moles/Vol] 133 mmol/L Low 136-145 [facility] Comment on above: Order Comment: No: D o not add to previous draw Performed By: #### 1 0070, 85086, 19302, 92738, 10926, 93415 #### [facility] [address] [facility]. [address] Urea nitrogen [Mass/Vol] 10 mg/dL Normal 7-25 [facility] Comment on above: Order Comment: No: D o not add to previous draw Performed By: #### 1 0070, 49516, 89918, 07598, 08723, 40265 #### [facility] [address] [facility] [place] [address], [facility] CBC W/DIFFon 04-02-2020 ABS BASOPHILS 0.0 10*3/uL Normal 0.0-0.2 [facility] Comment on above: Order Comment: No: D o not add to previous draw Performed By: #### 1 0070, 33660, 43807, 01246, 21454, 44026 #### [facility] [address] [place] [address], [facility] ABS IMM GRANS 0.0 10*3/uL Normal 0.0-0.2 [facility] Comment on above: Order Comment: No: D o not add to previous draw Performed By: #### 1 0070, 92784, 42201, 79080, 00045, 41700 #### [facility] [address] [place] [address], [facility] ABS NEUTROPHILS 4.5 10*3/uL Normal 1.6-7.6 [facility] Comment on above: Order Comment: No: D o not add to previous draw Performed By: #### 1 0070, 10117, 25082, 33679, 11628, 62637 #### [facility] [address] [place] [address], [facility] Basophils/100 WBC (Bld) 0.2 % Normal 0.0-1.0 [facility] Comment on above: Order Comment: No: D o not add to previous draw Performed By: #### 1 0070, 87666, 06910, 98734, 79360, 08359 #### [facility] [address] [facility] [address], [facility] Eosinophils (Bld) [#/Vol] 0.2 10*3/uL Normal 0.0-0.5 [facility] Comment on above: Order Comment: No: D o not add to previous draw Performed By: #### 1 0070, 62820, 57560, 11043, 76908, 47030 #### [facility] [address] [place] [address], [facility] Eosinophils/100 WBC (Bld) 3.6 % Normal 0.0-6.0 [facility] Comment on above: Order Comment: No: D o not add to previous draw Performed By: #### 1 0070, 14097, 15554, 69830, 10330, 17431 #### [facility] [address] [facility] [place] [id number], [place] Erythrocyte distribution width (RBC) [Ratio] 12.7 % Normal 11.5-15.0 [facility] Comment on above: Order Comment: No: D o not add to previous draw Performed By: #### 1 0070, 68389, 59135, 13003, 19477, 11013 #### [facility] [address] [place] [address], [place] Hematocrit (Bld) [Volume fraction] 42.9 % Normal 36.0-45.0 [facility] Comment on above: Order Comment: No: D o not add to previous draw Performed By: #### 1 0070, 12864, 73389, 63842, 14750, 75421 #### [facility] [address] [place] [address], [facility] Hemoglobin (Bld) [Mass/Vol] 13.5 g/dL Normal 12.0-15.0 [facility] Comment on above: Order Comment: No: D o not add to previous draw Performed By: #### 1 0070, 77041, 21099, 32121, 27914, 26140 #### [facility] [address] [place] [address], [facility] IMMATURE GRANS 0.3 % Normal 0.0-1.0 [facility] Comment on above: Order Comment: No: D o not add to previous draw Performed By: #### 1 0070, 94818, 67521, 48782, 05866, 78486 #### [facility] [address] [place] [address], [facility] Lymphocytes (Bld) [#/Vol] 1.1 10*3/uL Low 1.2-4.0 [facility] Comment on above: Order Comment: No: D o not add to previous draw Performed By: #### 1 0070, 03960, 73936, 78380, 50024, 34108 #### [facility] [address] [place] [address], [facility] Lymphocytes/100 WBC (Bld) 18.0 % Low 20.0-45.0 [facility] Comment on above: Order Comment: No: D o not add to previous draw Performed By: #### 1 0070, 15958, 05515, 74256, 91843, 54861 #### [facility] [address] [facility] [place] [address], [facility] MCH (RBC) [Entitic mass] 27.4 pg Normal 27.0-33.0 [facility] Comment on above: Order Comment: No: D o not add to previous draw Performed By: #### 1 0070, 20399, 03338, 32815, 62288, 35503 #### [facility] [address] MCHC (RBC) [Mass/Vol] 31.5 g/dL Low 32.0-35.0 [facility] Comment on above: Order Comment: No: D o not add to previous draw Performed By: #### 1 0070, 29867, 17101, 70009, 73949, 52122 #### [facility] [address] MCV (RBC) [Entitic vol] 87.0 fL Normal 82.0-98.0 [facility] Comment on above: Order Comment: No: D o not add to previous draw Performed By: #### 1 0070, 79976, 92272, 85689, 34996, 41695 #### [facility] [address] Monocytes (Bld) [#/Vol] 0.3 10*3/uL Normal 0.1-1.0 [facility] Comment on above: Order Comment: No: D o not add to previous draw Performed By: #### 1 0070, 86673, 78412, 74129, 33272, 64218 #### [facility] [address] MONOS 5.5 % Normal 5.0-12.0 [facility] Comment on above: Order Comment: No: D o not add to previous draw Performed By: #### 1 0070, 30100, 24365, 19737, 59877, 39068 #### [facility] [address] Neutrophils/100 WBC (Bld) 72.4 % High 40.0-72.0 [facility] Comment on above: Order Comment: No: D o not add to previous draw Performed By: #### 1 0070, 74818, 88564, 08046, 75218, 54098 #### [facility] [address] [place] [address], [facility] Nucleated RBC/100 WBC (Bld) [Ratio] 0 % Normal 0-0 [facility] Comment on above: Order Comment: No: D o not add to previous draw Performed By: #### 1 0070, 74253, 23419, 57239, 04757, 74263 #### [facility] [address] [place] [address], [facility] PLAT CNT 264 10*3/uL Normal 150-400 [facility] Comment on above: Order Comment: No: D o not add to previous draw Performed By: #### 1 0070, 96151, 62154, 63488, 06678, 88460 #### [facility] [address] [facility] [place] [address], [facility] RBC (Bld) [#/Vol] 4.93 10*6/uL Normal 3.80-5.00 [facility] Comment on above: Order Comment: No: D o not add to previous draw Performed By: #### 1 0070, 31149, 87502, 24135, 54381, 24274 #### [facility] [address] [facility] [place] [address], [facility] WBC (Bld) [#/Vol] 6.17 10*3/uL Normal 4.00-10.60 [facility] Comment on above: Order Comment: No: D o not add to previous draw Performed By: #### 1 0070, 25465, 28051, 38280, 29365, 31812 #### [facility] [address] [facility] [place] [address], [facility] MAGNESIUM BLOODon 04-02-2020 Magnesium [Mass/Vol] 2.0 mg/dL Normal 1.9-2.7 [facility] Comment on above: Order Comment: No: D o not add to previous draw Performed By: #### 1 0070, 45163, 43228, 33656, 21473, 56800 #### [facility] [address] [place] [address], [facility] PHOSPHORUS BLOODon 0 Phosphate [Mass/Vol] 3.1 mg/dL Normal 2.5-5.0 [facility] Comment on above: Order Comment: No: D o not add to previous draw Performed By: #### 1 0070, 09795, 96697, 68506, 74571, 03789 #### [facility] [address] [place] [address], [facility] POC GLUCOSE LABon 04-02-2020 Glucose [Mass/Vol] 134 mg/dL High 70-100 [facility] Comment on above: Performed By: #### 1 0070, 17543, 80602, 00798, 86308, 26269 #### [facility] [address] [facility] UFH HEPARIN ASSAYon 04-02-20 20 UNFRACTIONATED HEPARIN 0.91 IU/mL Critically high 0.30-0.7 0 [facility] Comment on above: Result Comment: Ong roxaban and Apixaban will interfere with the anti Xa assay used to monitor UFH and LMWH. RESULTS CHECKED AND CALLED. ACCURATELY READ BACK BY LYNN POLANCO, RN @ 1588 Performed By: #### 1 0070, 87095, 94312, 81178, 04424, 85337 #### [facility] [address] [place] [address], [facility] ALBUMIN BLOODon 04-01-2020 Albumin [Mass/Vol] 3.0 g/dL Low 3.5-5.7 [facility] Comment on above: Performed By: #### 1 0070, 30860, 10380, 68270, 48044, 95359 #### [facility] [address] [place] [address], [facility] BASIC METABOLIC PANELon Calcium [Mass/Vol] 8.1 mg/dL Low 8.6-10.3 [facility] Comment on above: Order Comment: No: D o not add to previous draw Performed By: #### 1 0070, 30724, 92142, 54729, 29722, 07849 #### [facility] [address] [place] [address], [place] Chloride [Moles/Vol] 105 mmol/L Normal 98-107 [facility] Comment on above: Order Comment: No: D o not add to previous draw Performed By: #### 1 0070, 51444, 33679, 16406, 08965, 98094 #### [facility] [address] [place] [address], [place] CO2 [Moles/Vol] 26 mmol/L Normal 21-31 [facility] Comment on above: Order Comment: No: D o not add to previous draw Performed By: #### 1 0070, 00769, 64113, 37879, 67975, 46140 #### [facility] [address] [place] [address], [place] Creatinine [Mass/Vol] 0.65 mg/dL Normal 0.60-1.20 [facility] Comment on above: Order Comment: No: D o not add to previous draw Performed By: #### 1 0070, 15675, 43094, 67605, 79035, 43564 #### [facility] [address] [place] [address], [place] GFR/1.73 sq M predicted among blacks MDRD (S/P/Bld) [Vol rate/Area] mL/min/{1.73_m2} Normal >60 [facility] Comment on above: Order Comment: No: D o not add to previous draw Performed By: #### 1 0070, 43257, 48841, 01957, 53646, 95794 #### [facility] [address] [place] [address], [place] GFR/1.73 sq M predicted among non-blacks MDRD (S/P/Bld) [Vol rate/Area] mL/min/{1.73_m2} Normal >60 [facility] Comment on above: Order Comment: No: D o not add to previous draw Performed By: #### 1 0070, 48950, 01334, 88988, 61930, 43422 #### [facility] [address] [place] [address], [facility] Glucose [Mass/Vol] 87 mg/dL Normal 70-100 [facility] Comment on above: Order Comment: No: D o not add to previous draw Performed By: #### 1 0070, 33874, 32273, 25648, 72436, 57477 #### [facility] [address] [place] [address], [facility] Potassium [Moles/Vol] 4.3 mmol/L Normal 3.5-5.1 [facility] Comment on above: Order Comment: No: D o not add to previous draw Performed By: #### 1 0070, [id number], 78111, 37680, 96964, 26370 #### [facility] [address] [place] [address], [facility] Sodium [Moles/Vol] 136 mmol/L Normal 136-145 [facility] Comment on above: Order Comment: No: D o not add to previous draw Performed By: #### 1 0070, [id number], 19827, 16435, 27376, 60263 #### [facility] [address] [place] [address], [facility] Urea nitrogen [Mass/Vol] 8 mg/dL Normal 7-25 [facility] Comment on above: Order Comment: No: D o not add to previous draw Performed By: #### 1 0070, 74749, 35032, 80547, 85795, 38790 #### [facility] [address] [place] [address], [facility] CBC W/DIFFon 04-01-2020 ABS BASOPHILS 0.0 10*3/uL Normal 0.0-0.2 [facility] Comment on above: Order Comment: No: D o not add to previous draw Performed By: #### 1 0070, 99300, 06628, 39279, 25195, 92358 #### [facility] [address] [facility] [address], [facility] ABS IMM GRANS 0.0 10*3/uL Normal 0.0-0.2 [facility] Comment on above: Order Comment: No: D o not add to previous draw Performed By: #### 1 0070, 32291, 18127, 88071, 67926, 12030 #### [facility] [address] [place] [address], [facility] ABS NEUTROPHILS 3.4 10*3/uL Normal 1.6-7.6 [facility] Comment on above: Order Comment: No: D o not add to previous draw Performed By: #### 1 0070, 27898, 55238, 96131, 43380, 95183 #### [facility] [address] [place] [address], [facility] Basophils/100 WBC (Bld) 0.2 % Normal 0.0-1.0 [facility] Comment on above: Order Comment: No: D o not add to previous draw Performed By: #### 1 0070, 82229, 73984, 31278, 57705, 30592 #### [facility] [address] [place] [address], [facility] Eosinophils (Bld) [#/Vol] 0.1 10*3/uL Normal 0.0-0.5 [facility] Comment on above: Order Comment: No: D o not add to previous draw Performed By: #### 1 0070, 59952, 76069, 84357, 35739, 73941 #### [facility] [address] [facility] [place] [address], [facility] Eosinophils/100 WBC (Bld) 2.6 % Normal 0.0-6.0 [facility] Comment on above: Order Comment: No: D o not add to previous draw Performed By: #### 1 0070, 51807, 73101, 68046, 74992, 90895 #### [facility] [address] Erythrocyte distribution width (RBC) [Ratio] 13.0 % Normal 11.5-15.0 [facility] Comment on above: Order Comment: No: D o not add to previous draw Performed By: #### 1 0070, 25050, 11489, 31635, 63365, 30216 #### [facility] [address] Hematocrit (Bld) [Volume fraction] 40.9 % Normal 36.0-45.0 [facility] Comment on above: Order Comment: No: D o not add to previous draw Performed By: #### 1 0070, 23346, 18985, 86581, 27032, 66878 #### [facility] [address] Hemoglobin (Bld) [Mass/Vol] 12.8 g/dL Normal 12.0-15.0 [facility] Comment on above: Order Comment: No: D o not add to previous draw Performed By: #### 1 0070, 72800, 24989, 88569, 19535, 39401 #### [facility] [address] IMMATURE GRANS 0.6 % Normal 0.0-1.0 [facility] Comment on above: Order Comment: No: D o not add to previous draw Performed By: #### 1 0070, 70203, 41911, 54665, 66079, 06136 #### [facility] [address] Lymphocytes (Bld) [#/Vol] 1.2 10*3/uL Normal 1.2-4.0 [facility] Comment on above: Order Comment: No: D o not add to previous draw Performed By: #### 1 0070, 63356, 04625, 58042, 29687, 10491 #### [facility] [address] [place] [address], [facility] Lymphocytes/100 WBC (Bld) 23.7 % Normal 20.0-45.0 [facility] Comment on above: Order Comment: No: D o not add to previous draw Performed By: #### 1 0070, 39933, 65011, 33406, 50183, 96320 #### [facility] [address] [place] [address], [facility] MCH (RBC) [Entitic mass] 27.4 pg Normal 27.0-33.0 [facility] Comment on above: Order Comment: No: D o not add to previous draw Performed By: #### 1 0070, 14279, 21192, 14238, 29844, 54793 #### [facility] [address] MCHC (RBC) [Mass/Vol] 31.3 g/dL Low 32.0-35.0 [facility] Comment on above: Order Comment: No: D o not add to previous draw Performed By: #### 1 0070, 71304, 47044, 43734, 09423, 06787 #### [facility] [address] [place] [address], [facility] MCV (RBC) [Entitic vol] 87.6 fL Normal 82.0-98.0 [facility] Comment on above: Order Comment: No: D o not add to previous draw Performed By: #### 1 0070, 50317, 43974, 43676, 51847, 43858 #### [facility] [address] [place] [address], [facility] Monocytes (Bld) [#/Vol] 0.3 10*3/uL Normal 0.1-1.0 [facility] Comment on above: Order Comment: No: D o not add to previous draw Performed By: #### 1 0070, 52081, 66424, 27350, 21964, 69947 #### [facility] [address] [facility] [address], [facility] MONOS 5.4 % Normal 5.0-12.0 [facility] Comment on above: Order Comment: No: D o not add to previous draw Performed By: #### 1 0070, 95901, 70444, 94625, 04307, 59129 #### [facility] [address] [facility] [address], [facility] Neutrophils/100 WBC (Bld) 67.5 % Normal 40.0-72.0 [facility] Comment on above: Order Comment: No: D o not add to previous draw Performed By: #### 1 0070, 63242, 43368, 97426, 74567, 90432 #### [facility] [address] [place] [address], [facility] Nucleated RBC/100 WBC (Bld) [Ratio] 0 % Normal 0-0 [facility] Comment on above: Order Comment: No: D o not add to previous draw Performed By: #### 1 0070, 17425, 45172, 15278, 39668, 00900 #### [facility] [address] [place] [address], [facility] PLAT CNT 237 10*3/uL Normal 150-400 [facility] Comment on above: Order Comment: No: D o not add to previous draw Performed By: #### 1 0070, 95859, 86793, 77620, 79186, 42774 #### [facility] [address] [place] [address], [facility] RBC (Bld) [#/Vol] 4.67 10*6/uL Normal 3.80-5.00 [facility] Comment on above: Order Comment: No: D o not add to previous draw Performed By: #### 1 0070, 69519, 00023, 03658, 57903, 24007 #### [facility] [address] [place] [address], [facility] WBC (Bld) [#/Vol] 4.98 10*3/uL Normal 4.00-10.60 [facility] Comment on above: Order Comment: No: D o not add to previous draw Performed By: #### 1 0070, 46620, 35923, 05028, 65508, 61552 #### [facility] [address] [facility] [place], [place] [id number] [place] [address] CHEST AND LATERALon 04-01-20 CHEST AND LATERAL [facility] Department of Radiology [address] [place] [address] Patient Name: EMIGDIO APODACA : 1965 Sex: F Age: Race: White Pt. Location: [id number] Patient Status: I Ordered Date: 04/01/2020 7:00:00 [...] reports Electronically signed: Shari Salcedo. Transcribed by: [email or web address], User Resident: ANNE VEGA Electronically Signed by: SHARI SALCEDO @ 04/01/2020 10:12 AM I personally read this/these film(s) with this resident Normal [facility] Comment on above: Order Comment: No: D o not add to previous draw MAGNESIUM BLOODon 04-01-2020 Magnesium [Mass/Vol] 2.1 mg/dL Normal 1.9-2.7 [facility] Comment on above: Order Comment: No: D o not add to previous draw Performed By: #### 1 0070, 75397, 82944, 82777, 19703, 00186 #### [facility] [address] [facility]. [address] APTTon 03-31-2020 aPTT Coag (Bld) [Time] 28.3 s Normal 25.0-35.0 Th e [facility] Comment on above: Order Comment: [...] THIS PURPOSE. Performed By: #### 1 0070, 79959, 16565, 92456, 95798, 39248 #### [facility] [address] [place] [address], [facility] BASIC METABOLIC PANELon 06-3 0-2019 Calcium [Mass/Vol] 7.8 mg/dL Low 8.6-10.3 [facility] Comment on above: Order Comment: No: D o not add to previous draw Performed By: #### 1 0070, 18589, 46465, 79631, 64315, 60482 #### [facility] [address] [place] [address], [facility] Chloride [Moles/Vol] 108 mmol/L High 98-107 [facility] Comment on above: Order Comment: No: D o not add to previous draw Performed By: #### 1 0070, 30415, 24016, 79329, 32421, 15938 #### [facility] [address] [place] [address], [facility] CO2 [Moles/Vol] 26 mmol/L Normal 21-31 [facility] Comment on above: Order Comment: No: D o not add to previous draw Performed By: #### 1 0070, 39652, 71448, 58086, 33224, 20533 #### [facility] [address] [place] [address], [facility] Creatinine [Mass/Vol] 0.76 mg/dL Normal 0.60-1.20 [facility] Comment on above: Order Comment: No: D o not add to previous draw Performed By: #### 1 0070, 26088, 00791, 84624, 77956, 29612 #### [facility] [address] [place] [address], [facility] GFR/1.73 sq M predicted among blacks MDRD (S/P/Bld) [Vol rate/Area] mL/min/{1.73_m2} Normal >60 [facility] Comment on above: Order Comment: No: D o not add to previous draw Performed By: #### 1 0070, 81386, 04724, 50261, 35288, 09746 #### [facility] [address] [place] [address], [facility] GFR/1.73 sq M predicted among non-blacks MDRD (S/P/Bld) [Vol rate/Area] mL/min/{1.73_m2} Normal >60 [facility] Comment on above: Order Comment: No: D o not add to previous draw Performed By: #### 1 0070, 38955, 60907, 46947, 86304, 65825 #### [facility] [address] [place] [address], [place] Glucose [Mass/Vol] 97 mg/dL Normal 70-100 [facility] Comment on above: Order Comment: No: D o not add to previous draw Performed By: #### 1 0070, 49043, 08247, 07949, 20058, 08972 #### [facility] [address] [place] [address], [place] Potassium [Moles/Vol] 3.2 mmol/L Low 3.5-5.1 [facility] Comment on above: Order Comment: No: D o not add to previous draw Performed By: #### 1 0070, 47641, 60970, 66394, 08895, 37883 #### [facility] [address] [place] [address], [place] Sodium [Moles/Vol] 140 mmol/L Normal 136-145 [facility] Comment on above: Order Comment: No: D o not add to previous draw Performed By: #### 1 0070, 33487, 18175, 38468, 88389, 91632 #### [facility] [address] [place] [address], [place] Urea nitrogen [Mass/Vol] 15 mg/dL Normal 7-25 [facility] Comment on above: Order Comment: No: D o not add to previous draw Performed By: #### 1 0070, 29927, 71636, 49294, 64043, 85622 #### [facility] [address] [place] [address], [facility] CBC W/DIFFon 03-31-2020 ABS BASOPHILS 0.0 10*3/uL Normal 0.0-0.2 [facility] Comment on above: Order Comment: No: D o not add to previous draw Performed By: #### 1 0070, 85452, 69560, 34051, 80354, 67722 #### [facility] [address] [place] [address], [facility] ABS IMM GRANS 0.0 10*3/uL Normal 0.0-0.2 [facility] Comment on above: Order Comment: No: D o not add to previous draw Performed By: #### 1 0070, 46087, 09577, 51018, 37136, 30885 #### [facility] [address] ABS NEUTROPHILS 3.2 10*3/uL Normal 1.6-7.6 [facility] Comment on above: Order Comment: No: D o not add to previous draw Performed By: #### 1 0070, 44038, 07144, 74235, 12546, 46859 #### [facility] [address] [place] [address], [facility] Basophils/100 WBC (Bld) 0.2 % Normal 0.0-1.0 [facility] Comment on above: Order Comment: No: D o not add to previous draw Performed By: #### 1 0070, 39816, 65807, 96020, 18574, 27202 #### [facility] [address] [place] [address], [facility] Eosinophils (Bld) [#/Vol] 0.0 10*3/uL Normal 0.0-0.5 [facility] Comment on above: Order Comment: No: D o not add to previous draw Performed By: #### 1 0070, 48971, 11511, 94187, 86385, 14405 #### [facility] [address] [place] [address], [facility] Eosinophils/100 WBC (Bld) 0.4 % Normal 0.0-6.0 [facility] Comment on above: Order Comment: No: D o not add to previous draw Performed By: #### 1 0070, 64947, 40053, 17077, 84709, 80410 #### [facility] [address] [facility] [address] Erythrocyte distribution width (RBC) [Ratio] 13.0 % Normal 11.5-15.0 [facility] Comment on above: Order Comment: No: D o not add to previous draw Performed By: #### 1 0070, 06777, 32063, 61122, 69205, 27829 #### [facility] [address] [facility] [address] Hematocrit (Bld) [Volume fraction] 34.4 % Low 36.0-45.0 [facility] Comment on above: Order Comment: No: D o not add to previous draw Performed By: #### 1 0070, 65186, 74586, 42810, 60378, 20494 #### [facility] [address] [facility] [place] [place] [id number] [place] [address] Hemoglobin (Bld) [Mass/Vol] 10.8 g/dL Low 12.0-15.0 [facility] Comment on above: Order Comment: No: D o not add to previous draw Performed By: #### 1 0070, 37619, 18935, 53982, 47462, 63485 #### [facility] [address] [facility] [place] [address], [facility] IMMATURE GRANS 0.4 % Normal 0.0-1.0 [facility] Comment on above: Order Comment: No: D o not add to previous draw Performed By: #### 1 0070, 05015, 24634, 48268, 98080, 83972 #### [facility] [address] [facility] [place] [address], [facility] Lymphocytes (Bld) [#/Vol] 1.2 10*3/uL Normal 1.2-4.0 [facility] Comment on above: Order Comment: No: D o not add to previous draw Performed By: #### 1 0070, 34754, 07113, 40952, 61705, 68316 #### [facility] [address] [facility] [place] [address], [facility] Lymphocytes/100 WBC (Bld) 25.7 % Normal 20.0-45.0 [facility] Comment on above: Order Comment: No: D o not add to previous draw Performed By: #### 1 0070, 53866, 43387, 87278, 33514, 69015 #### [facility] [address] [facility] [place] [address], [facility] MCH (RBC) [Entitic mass] 27.5 pg Normal 27.0-33.0 [facility] Comment on above: Order Comment: No: D o not add to previous draw Performed By: #### 1 0070, 70707, 08515, 66752, 11690, 72717 #### [facility] [address] [facility] [place] [address], [facility] MCHC (RBC) [Mass/Vol] 31.4 g/dL Low 32.0-35.0 [facility] Comment on above: Order Comment: No: D o not add to previous draw Performed By: #### 1 0070, 94723, 38339, 00210, 70129, 17846 #### [facility] [address] [place] [address], [facility] MCV (RBC) [Entitic vol] 87.5 fL Normal 82.0-98.0 [facility] Comment on above: Order Comment: No: D o not add to previous draw Performed By: #### 1 0070, 24335, 60670, 50701, 89067, 93180 #### [facility] [address] [place] [address], [facility] Monocytes (Bld) [#/Vol] 0.3 10*3/uL Normal 0.1-1.0 [facility] Comment on above: Order Comment: No: D o not add to previous draw Performed By: #### 1 0070, 28639, 68262, 47754, 52809, 79337 #### [facility] [address] [place] [address], [facility] MONOS 6.2 % Normal 5.0-12.0 [facility] Comment on above: Order Comment: No: D o not add to previous draw Performed By: #### 1 0070, 84772, 28796, 57477, 53871, 90686 #### [facility] [address] [place] [address], [facility] Neutrophils/100 WBC (Bld) 67.1 % Normal 40.0-72.0 [facility] Comment on above: Order Comment: No: D o not add to previous draw Performed By: #### 1 0070, 46428, 43409, 57450, 62386, 76958 #### [facility] [address] [facility] [place] [address], [facility] Nucleated RBC/100 WBC (Bld) [Ratio] 0 % Normal 0-0 [facility] Comment on above: Order Comment: No: D o not add to previous draw Performed By: #### 1 0070, 08312, 40859, 11581, 81178, 11221 #### [facility] [address] [place] [address], [facility] PLAT CNT 210 10*3/uL Normal 150-400 [facility] Comment on above: Order Comment: No: D o not add to previous draw Performed By: #### 1 0070, 25368, 76312, 63383, 31656, 25126 #### [facility] [address] [place] [address], [facility] RBC (Bld) [#/Vol] 3.93 10*6/uL Normal 3.80-5.00 [facility] Comment on above: Order Comment: No: D o not add to previous draw Performed By: #### 1 0070, 32148, 02410, 49506, 39956, 93625 #### [facility] [address] [place] [address], [facility] WBC (Bld) [#/Vol] 4.71 10*3/uL Normal 4.00-10.60 [facility] Comment on above: Order Comment: No: D o not add to previous draw Performed By: #### 1 0070, 74474, 13554, 27338, 38706, 74904 #### [facility] [address] [place], [place] [address] Cardiovascular Lab Reporton 03-31-2020 Cardiovascular Lab Report [facility] Patient Name: Paulie Parkhill [facility] S MR #: [id number] Department of Physician: Rebecca Weaver M.D. Medicine Service Date: 03/31/2020 Division of Birthdate: 1965 Cardiology Room #: 3AB [id number] Adult Cardiovascular Services [place] [address] Cardiovascular Laboratory Report INDICATIONS FOR PACEMAKER PLACEMENT: [...] Weaver M.D. Date Trans: 03/31/2020 03:35 P/jamal [id number] cc: Luis Armando Hines M.D. Heart Failure/ Transplant Mailstop [address] [place] [address] Normal [facility] MAGNESIUM BLOODon 03-31-2020 Magnesium [Mass/Vol] 1.8 mg/dL Low 1.9-2.7 [facility] Comment on above: Order Comment: No: D o not add to previous draw Performed By: #### 1 0070, 79218, 03590, 40189, 35989, 46744 #### [facility] [address] PHOSPHORUS BLOODon 0 Phosphate [Mass/Vol] 2.7 mg/dL Normal 2.5-5.0 [facility] Comment on above: Order Comment: No: D o not add to previous draw Performed By: #### 1 0070, 20205, 76476, 83548, 07685, 24391 #### [facility] [address] PROTHROMBIN TIMEon 0 INR Coag (PPP) [Relative time] 1.11 {INR} Normal 0.91-1.16 [facility] Comment on above: Order Comment: [...] CHEST 1995;108:[id number]-246S. Performed By: #### 1 0070, 44904, 49488, 51548, 03862, 33997 #### [facility] [address] [facility] PT Coag (PPP) [Time] 14.3 s Normal 12.3-14.8 [facility] Comment on above: Order Comment: No: D o not add to previous draw Result Comment: ALL RESULTS MUST BE INTERPRETED WITH RESPECT TO BLOOD DRAWING ARTIFACT OR DILUTION ERROR OF ANTICOAGULANT AT THE TIME OF SAMPLING. Performed By: #### 1 0070, 69973, 80143, 37139, 15474, 16980 #### [facility] [address] [facility]. [address] *SARS-CoV-2 COVID-19on 03-30 [id number] Not Detected Normal Not Detected [facility] Comment on above: Order Comment: No: D o not add to previous draw Performed By: #### 1 0070, 38481, 71119, 11191, 83345, 60632 #### [facility] [address] [facility]. [address] APTTon 03-30-2020 aPTT Coag (Bld) [Time] 24.9 s Low 25.0-35.0 [facility] Comment on above: Order Comment: [...] THIS PURPOSE. Performed By: #### 5 7307, 74978 #### [facility] [address] [facility] [address] BASIC METABOLIC PANELon 03-03 Calcium [Mass/Vol] 8.9 mg/dL Normal 8.6-10.3 [facility] Comment on above: Order Comment: No: D o not add to previous draw Performed By: #### 1 0070, 96696, 37474, 28823, 50957, 83316 #### [facility] [address] [place] [address], [place] Chloride [Moles/Vol] 110 mmol/L High 98-107 [facility] Comment on above: Order Comment: No: D o not add to previous draw Performed By: #### 1 0070, 53212, 34719, 07116, 29627, 24150 #### [facility] [address] [place] [address], [place] CO2 [Moles/Vol] 26 mmol/L Normal 21-31 [facility] Comment on above: Order Comment: No: D o not add to previous draw Performed By: #### 1 0070, 86464, 40925, 21503, 68595, 25560 #### [facility] [address] [place] [address], [place] Creatinine [Mass/Vol] 0.86 mg/dL Normal 0.60-1.20 [facility] Comment on above: Order Comment: No: D o not add to previous draw Performed By: #### 1 0070, 45487, 97276, 73762, 35163, 73202 #### [facility] [address] [place] [address], [place] GFR/1.73 sq M predicted among blacks MDRD (S/P/Bld) [Vol rate/Area] mL/min/{1.73_m2} Normal >60 [facility] Comment on above: Order Comment: No: D o not add to previous draw Performed By: #### 1 0070, 89799, 52500, 83114, 95132, 89500 #### [facility] [address] [place] [address], [place] GFR/1.73 sq M predicted among non-blacks MDRD (S/P/Bld) [Vol rate/Area] mL/min/{1.73_m2} Normal >60 [facility] Comment on above: Order Comment: No: D o not add to previous draw Performed By: #### 1 0070, 83972, 54283, 90977, 48810, 84441 #### [facility] [address] [place] [address], [facility] Glucose [Mass/Vol] 119 mg/dL High 70-100 [facility] Comment on above: Order Comment: No: D o not add to previous draw Performed By: #### 1 0070, 28960, 73054, 31118, 21391, 18518 #### [facility] [address] [place] [address], [facility] Potassium [Moles/Vol] 3.5 mmol/L Normal 3.5-5.1 [facility] Comment on above: Order Comment: No: D o not add to previous draw Performed By: #### 1 0070, 31321, 63916, 80619, 57699, 82571 #### [facility] [address] [place] [address], [facility] Sodium [Moles/Vol] 142 mmol/L Normal 136-145 [facility] Comment on above: Order Comment: No: D o not add to previous draw Performed By: #### 1 0070, 28219, 34046, 00100, 71106, 86941 #### [facility] [address] [place] [address], [facility] Urea nitrogen [Mass/Vol] 13 mg/dL Normal 7-25 [facility] Comment on above: Order Comment: No: D o not add to previous draw Performed By: #### 1 0070, [id number], [id number], 02433, [id number], [id number] #### [facility] [address] [place] [address], [facility] CBC W/DIFFon 03-30-2020 ABS BASOPHILS 0.0 10*3/uL Normal 0.0-0.2 [facility] Comment on above: Performed By: #### 5 0103 #### [facility] [address] ABS IMM GRANS 0.0 10*3/uL Normal 0.0-0.2 [facility] Comment on above: Performed By: #### 5 0103 #### [facility] [address] [place] [address], [facility] ABS NEUTROPHILS 5.7 10*3/uL Normal 1.6-7.6 [facility] Comment on above: Performed By: #### 5 0103 #### [facility] [address] Basophils/100 WBC (Bld) 0.0 % Normal 0.0-1.0 [facility] Comment on above: Performed By: #### 5 0103 #### [facility] [address] Eosinophils (Bld) [#/Vol] 0.0 10*3/uL Normal 0.0-0.5 [facility] Comment on above: Performed By: #### 5 0103 #### [facility] [address] Eosinophils/100 WBC (Bld) 0.0 % Normal 0.0-6.0 [facility] Comment on above: Performed By: #### 5 0103 #### [facility] [address] Erythrocyte distribution width (RBC) [Ratio] 12.9 % Normal 11.5-15.0 [facility] Comment on above: Performed By: #### 5 3 #### [facility] [address] Hematocrit (Bld) [Volume fraction] 36.1 % Normal 36.0-45.0 [facility] Comment on above: Performed By: #### 5 3 #### [facility] [address] [facility] [address], [facility] Hemoglobin (Bld) [Mass/Vol] 11.5 g/dL Low 12.0-15.0 [facility] Comment on above: Performed By: #### 3 #### [facility] [address] [place] [address], [facility] IMMATURE GRANS 0.5 % Normal 0.0-1.0 [facility] Comment on above: Performed By: #### 3 #### [facility] [address] [place] [address], [facility] Lymphocytes (Bld) [#/Vol] 0.6 10*3/uL Low 1.2-4.0 [facility] Comment on above: Performed By: #### 5 102 #### [facility] [address] Lymphocytes/100 WBC (Bld) 9.3 % Low 20.0-45.0 [facility] Comment on above: Performed By: #### 5 3 #### [facility] [address] [place] [address], [facility] MCH (RBC) [Entitic mass] 27.4 pg Normal 27.0-33.0 [facility] Comment on above: Performed By: #### 5 3 #### [facility] [address] [place] [address], [facility] MCHC (RBC) [Mass/Vol] 31.9 g/dL Low 32.0-35.0 [facility] Comment on above: Performed By: #### 5 3 #### [facility] [address] [place] [address], [facility] MCV (RBC) [Entitic vol] 86.0 fL Normal 82.0-98.0 [facility] Comment on above: Performed By: #### 5 3 #### [facility] [address] [place] [address], [facility] Monocytes (Bld) [#/Vol] 0.2 10*3/uL Normal 0.1-1.0 [facility] Comment on above: Performed By: #### 102 #### [facility] [address] [place] [address], [facility] MONOS 2.5 % Low 5.0-12.0 [facility] Comment on above: Performed By: #### 102 #### [facility] [address] [place] [address], [facility] Neutrophils/100 WBC (Bld) 87.7 % High 40.0-72.0 [facility] Comment on above: Performed By: #### 102 #### [facility] [address] [place] [address], [facility] Nucleated RBC/100 WBC (Bld) [Ratio] 0 % Normal 0-0 [facility] Comment on above: Performed By: #### 102 #### [facility] [address] [place] [address], [facility] PLAT CNT 261 10*3/uL Normal 150-400 [facility] Comment on above: Performed By: #### 102 #### [facility] [address] [place] [address], [facility] RBC (Bld) [#/Vol] 4.20 10*6/uL Normal 3.80-5.00 [facility] Comment on above: Performed By: #### 3 #### [facility] [address] [place] [address], [facility] WBC (Bld) [#/Vol] 6.47 10*3/uL Normal 4.00-10.60 [facility] Comment on above: Performed By: #### 102 #### [facility] [address] FREE T4on 03-30-2020 Free T4 [Mass/Vol] 1.48 ng/dL Normal 0.71-1.85 [facility] Comment on above: Performed By: #### 1 0070, 75542, 20061, 59936, 41496, 57808 #### [facility] [address] [place] [address], [facility] MAGNESIUM BLOODon 03-30-2020 Magnesium [Mass/Vol] 2.0 mg/dL Normal 1.9-2.7 [facility] Comment on above: Order Comment: No: D o not add to previous draw Performed By: #### 1 0070, 25248, 87635, 57606, 91750, 98338 #### [facility] [address] [place] [address], [facility] PHOSPHORUS BLOODon 0 Phosphate [Mass/Vol] 2.8 mg/dL Normal 2.5-5.0 [facility] Comment on above: Order Comment: No: D o not add to previous draw Performed By: #### 1 0070, 32991, 48267, 99090, 73529, 52831 #### [facility] [address] PROTHROMBIN TIMEon 0 INR Coag (PPP) [Relative time] 1.21 {INR} High 0.91-1.16 [facility] Comment on above: Order Comment: [...] CHEST 1995;[id number]. Performed By: #### 5 7307, [id number] #### [facility] [address] [email or web address] [address], [facility] PT Coag (PPP) [Time] 15.4 s High 12.3-14.8 [facility] Comment on above: Order Comment: No: D o not add to previous draw Result Comment: ALL RESULTS MUST BE INTERPRETED WITH RESPECT TO BLOOD DRAWING ARTIFACT OR DILUTION ERROR OF ANTICOAGULANT AT THE TIME OF SAMPLING. Performed By: #### 5 7307, 35696 #### [facility] [address] [email or web address] [address], [facility] TROPONIN-Ion 03-30-2020 Troponin I.cardiac [Mass/Vol] 0.02 ng/mL Normal 0.00-0.04 [facility] Comment on above: Order Comment: No: D o not add to previous draw Result Comment: REFE RENCE RANGES: 0.00 - 0.04 ng/ml NORMAL 0.05 - 0.50 ng/ml INDETERMINATE > 0.50 ng/ml CONSISTENT WITH AN M.I. Performed By: #### 1 0070, 66800, 80472, 94095, 90134, 92780 #### [facility] [address] [email or web address] [address], [facility] Troponin I.cardiac [Mass/Vol] 0.04 ng/mL Normal 0.00-0.04 [facility] Comment on above: Order Comment: No: D o not add to previous draw Result Comment: REFE RENCE RANGES: 0.00 - 0.04 ng/ml NORMAL 0.05 - 0.50 ng/ml INDETERMINATE > 0.50 ng/ml CONSISTENT WITH AN M.I. Performed By: #### 3 5200 #### [facility] [address] [place] [address], [facility] Troponin I.cardiac [Mass/Vol] 0.04 ng/mL Normal 0.00-0.04 [facility] Comment on above: Order Comment: No: D o not add to previous draw Result Comment: REFE RENCE RANGES: 0.00 - 0.04 ng/ml NORMAL 0.05 - 0.50 ng/ml INDETERMINATE > 0.50 ng/ml CONSISTENT WITH AN M.I. Performed By: #### 1 0070, 90478, 62201, 50361, 74986, 63981 #### [facility] [address] [facility]. [address] TSH3 WITH REFLEX FT4on 03-30 TSH 3RD GENERATION 0.02 uIU/mL Low 0.34-5.60 [facility] Comment on above: Performed By: #### 1 0070, 99157, 24395, 53453, 67144, 35907 #### [facility] [address] [facility]. [address] Vital Signs Date Time Vital Sign Value Performing Clinician Facility 05-05-2025 14:00-0400 Body height 152.4 cm Naseem Carter NP Work Phone: [facility] 05-05-2025 14:00-0400 Body mass index (BMI) [Ratio] 19.14 kg/m2 Naseem Carter MACHINE C[employer]ER AND [employer]DER Work Phone: [facility] 05-05-2025 14:00-0400 Body weight 44.45 kg Naseem Carter MACHINE C[employer]ER AND [employer]DER Work Phone: [facility] 02-17-2025 13:40-0400 Body height 152.4 cm Naseem Carter MACHINE C[employer]ER AND [employer]DER Work Phone: [facility] 02-17-2025 13:40-0400 Body mass index (BMI) [Ratio] 20.31 kg/m2 Naseem Carter NP Work Phone: [facility] 02-17-2025 13:40-0400 Body weight 47.17 kg Naseem Carter NP Work Phone: [facility] 12-04-2024 07:30-0500 Body temperature 97.8 [degF] Tony Amaya MD Work Phone: [facility] 12-04-2024 07:30-0500 Diastolic blood pressure 77 mm[Hg] Tony Amaya MD Work Phone: [facility] 12-04-2024 07:30-0500 Heart rate 88 /min Tony Amaya MD Work Phone: [facility] 12-04-2024 07:30-0500 Respiratory rate 18 /min Tony Amaya MD Work Phone: [facility] 12-04-2024 07:30-0500 SaO2% (BldA) [Mass fraction] 97 % Tony Amaya MD Work Phone: [facility] 12-04-2024 07:30-0500 Systolic blood pressure 120 mm[Hg] Tony Amaya MD Work Phone: [facility] 12-02-2024 14:18-0500 Body height 152.4 cm Tony Amaya MD Work Phone: [facility] 12-02-2024 08:53-0500 Body weight 44.62 kg Tony Amaya MD Work Phone: [facility] 06-13-2024 12:13-0400 Body height 152.3 cm Zoila Monae MD Work Phone: [facility] 06-13-2024 12:13-0400 Body mass index (BMI) [Ratio] 19.98 kg/m2 Zoila Monae MD Work Phone: [facility] 06-13-2024 12:13-0400 Body weight 46.35 kg Zoila Monae MD Work Phone: [facility] 06-13-2024 12:13-0400 Diastolic blood pressure 77 mm[Hg] Zoila Monae MD Work Phone: [facility] 06-13-2024 12:13-0400 Heart rate 74 /min Zoila Monae MD Work Phone: [facility] 06-13-2024 12:13-0400 Systolic blood pressure 107 mm[Hg] Zoila Monae MD Work Phone: [facility] 03-06-2024 13:46-0400 Body height 153.5 cm Zoila Monae MD Work Phone: [facility] 03-06-2024 13:46-0400 Body mass index (BMI) [Ratio] 19.1 kg/m2 Zoila Monae MD Work Phone: [facility] 03-06-2024 13:46-0400 Body temperature 97.2 [degF] Zoila Monae MD Work Phone: [facility] 03-06-2024 13:46-0400 Body weight 45 kg Zoila Monae MD Work Phone: [facility] 03-06-2024 13:46-0400 Diastolic blood pressure 68 mm[Hg] Zoila Monae MD Work Phone: [facility] 03-06-2024 13:46-0400 Heart rate 106 /min Zoila Monae MD Work Phone: [facility] 03-06-2024 13:46-0400 Systolic blood pressure 101 mm[Hg] Zoila Monae MD Work Phone: [facility] 08-12-2022 15:32-0500 Body temperature 98.1 [degF] MD Tony Amaya Work Phone: [facility] 08-12-2022 15:32-0500 Diastolic blood pressure 69 mm[Hg] MD Tony Amaya Work Phone: [facility] 08-12-2022 15:32-0500 Heart rate 78 /min MD Tony Amaya Work Phone: [facility] 08-12-2022 15:32-0500 Respiratory rate 16 /min MD Tony Amaya Work Phone: [facility] 08-12-2022 15:32-0500 SaO2% (BldA) [Mass fraction] 94 % MD Tony Amaya Work Phone: [facility] 08-12-2022 15:32-0500 Systolic blood pressure 129 mm[Hg] MD Tony Amaya Work Phone: [facility] 08-12-2022 11:00-0500 Inhaled oxygen flow rate 3 L/min MD Tony Amaya Work Phone: [facility] 08-11-2022 12:39-0500 Body height 152.4 cm MD Tony Amaya Work Phone: [facility] 08-11-2022 06:00-0500 Body weight 44.9 kg MD Tony Amaya Work Phone: [facility] 08-10-2022 15:03-0500 Body mass index (BMI) [Ratio] 19.1 kg/m2 MD Tony Amaya Work Phone: [facility] 08-03-2022 14:27-0400 Body weight 0 kg MD Tony Amaya Work Phone: [facility] Encounters Encounter Date Encounter Type Care Provider Facility Start: 05-21-2025 End: 05-21-2025 Refill Naseem Carter MACHINE CEMENTER AND FOLDER Work Phone: [facility] Comment on above: Post-op pain (Primar y Dx) Start: 05-13-2025 ambulatory Tony Amaya Facility: [facility] Start: 05-05-2025 End: 05-05-2025 Bamboo flowsheet Naseem Carter MACHINE CEMENTER AND FOLDER Work Phone: [facility] Start: 05-05-2025 End: 05-05-2025 Bamboo flowsheet Naseem Carter MACHINE CEMENTER AND FOLDER Work Phone: [facility] Start: 05-05-2025 End: 05-05-2025 Patient encounter procedure Naseem Carter MACHINE CEMENTER AND FOLDER Work Phone: [facility] Comment on above: Pre-op evaluation (P rimary Dx) Start: 05-05-2025 End: 05-05-2025 Preprocedural examination done Naseem Carter MACHINE CEMENTER AND FOLDER Work Phone: [facility] Work Phone: Start: 05-05-2025 End: 05-05-2025 ambulatory NASEEM CARTER Not Available Start: 03-28-2025 End: 03-28-2025 ambulatory [facility] Start: 02-17-2025 End: 02-17-2025 Bamboo flowsheet Naseem Carter MACHINE CEMENTER AND FOLDER Work Phone: [facility] Start: 02-17-2025 End: 02-17-2025 Bamboo flowsheet Naseem Carter MACHINE CEMENTER AND FOLDER Work Phone: [facility] Start: 02-17-2025 End: 02-17-2025 ambulatory NASEEM CARTER Not Available Start: 02-17-2025 End: 02-17-2025 Patient encounter procedure Naseem Carter MACHINE CEMENTER AND FOLDER Work Phone: [facility] Comment on above: Preop examination (P rimary Dx) Start: 02-17-2025 End: 02-17-2025 Preprocedural examination done Naseem Carter MACHINE CEMENTER AND FOLDER Work Phone: [facility] Work Phone: Start: 02-14-2025 ambulatory [facility] Start: 02-10-2025 End: 02-14-2025 Telephone encounter Jr. Luis Armando Teague DO Work Phone: [facility] Start: 01-29-2025 ambulatory [facility] Start: 01-08-2025 End: 01-08-2025 Bamboloreto Teague DO [...] hand Start: 12-10-2024 End: 12-10-20[facility] Start: 12-02-2024 Non-patient / Non-visit Perez Amaya MD Work Phone: [facility] Work Phone: Start: 12-01-2024 End: 12-04-2024 Evaluation and management of inpatient Tony Amaya MD Work Phone: [facility] [place] [address] Work Phone: Start: 12-01-2024 Registered Recurring Tony berry MD Work Phone: [facility] Start: 11-29-2024 End: 11-29-2024 ambulatory DARRYL GOODE [facility] Start: 11-28-2024 End: 11-28-2024 Patient encounter procedure Monika Vargas DO Work Phone: [facility] Comment on above: Numbness and tinglin g in left hand Start: 11-28-2024 End: 11-28-2024 ambulatory MONIKA VARGAS Not Available Start: 11-26-2024 End: 11-26-2024 ambulatory Tony Amaya MD Work Phone: [facility] Work Phone: Start: 11-26-2024 End: 11-26-2024 Departed Referred Tony Amaya MD Work Phone: [facility] Start: 11-14-2024 Registered Recurring Tony berry MD Work Phone: [facility] Start: 11-11-2024 End: 11-11-2024 Bamboo flowsheet Zulema Mackay MACHINE CEMENTER AND FOLDER Work Phone: [facility] Start: 11-11-2024 End: 11-11-2024 Bamboo flowsheet Zulema Mackay MACHINE CEMENTER AND FOLDER Work Phone: [facility] Start: 11-11-2024 End: 11-11-2024 ambulatory ZULEMA MACKAY Not Available Start: 11-11-2024 End: 11-11-2024 Office outpatient visit 15 minutes Zulema Smith Simonelukas MACHINE CEMENTER AND FOLDER Work Phone: [facility] Comment on [...] Telephone encounter Zehra Bunch OT Work Phone: [facility] Comment on above: OT Initial Eval Start: 10-07-2024 End: 10-07-2024 Bamboo flowsheet Zulema B Apling MACHINE CEMENTER AND FOLDER Work Phone: [facility] Start: 10-07-2024 End: 10-07-2024 Bamboo flowsheet Zulema B Apling MACHINE CEMENTER AND FOLDER Work Phone: [facility] Start: 10-07-2024 End: 10-07-2024 ambulatory ZULEMA B APLING Not Available Start: 10-07-2024 End: 10-07-2024 Office outpatient visit 10 minutes Zulema B Apling MACHINE CEMENTER AND FOLDER Work Phone: [facility] Comment on above: Closed nondisplaced fracture of base of fifth metacarpal bone of left hand with routine healing, subsequent encounter (Primary Dx); Closed nondisplaced fracture of right patella with routine healing, unspecified fracture morphology, subsequent encounter Start: 09-16-2024 End: 09-16-2024 Bamboo flowsheet Zulema B Apling MACHINE CEMENTER AND FOLDER Work Phone: [facility] Start: 09-16-2024 End: 09-16-2024 Bamboo flowsheet Zulema B Apling MACHINE CEMENTER AND FOLDER Work Phone: [facility] Start: 09-16-2024 End: 09-16-2024 Postop follow up visit related to original px Zulema B Apling MACHINE CEMENTER AND FOLDER Work Phone: [facility] Comment on above: Closed nondisplaced fracture of base of fifth metacarpal bone of left hand with routine healing, subsequent encounter (Primary Dx); Closed nondisplaced fracture of right patella with routine healing, unspecified fracture morphology, subsequent encounter Start: 09-16-2024 End: 09-16-2024 ambulatory ZULEMA B APLING Not Available Start: 08-19-2024 End: 08-19-2024 Bamboo flowsheet Zulema B Apling MACHINE CEMENTER AND FOLDER Work Phone: [facility] Start: 08-19-2024 End: 08-19-2024 Bamboo flowsheet Zulema B Apling MACHINE CEMENTER AND FOLDER Work Phone: [facility] Start: 08-19-2024 End: 08-19-2024 ambulatory ZULEMA B APLING Not Available Start: 08-19-2024 End: 08-19-2024 Postop follow up visit related to original px Zulema Smith Apling MACHINE CEMENTER AND FOLDER Work Phone: [facility] Comment on above: Right elbow pain (Pr imary Dx); Closed nondisplaced fracture of base of fifth metacarpal bone of left hand with routine healing, subsequent encounter Start: 08-07-2024 End: 08-07-2024 Bamboo Trips n Salsaheet Zulema Smith Apling MACHINE CEMENTER AND FOLDER Work Phone: [facility] Start: 08-07-2024 End: 08-07-2024 Bamboo flowsheet Zulema Smith Apling MACHINE CEMENTER AND FOLDER Work Phone: [facility] Start: 08-07-2024 End: 08-07-2024 Postop follow up visit related to original px Zulema Smith Apling MACHINE CEMENTER AND FOLDER Work Phone: [facility] Comment on above: Closed nondisplaced fracture of right patella with routine healing, unspecified fracture morphology, subsequent encounter (Primary Dx); Right elbow pain Start: 08-07-2024 End: 08-07-2024 ambulatory ZULEMA Smith APLING Not Available Start: 07-22-2024 End: 07-22-2024 Bamboo Trips n Salsaheet Zulema Smith Apling MACHINE CEMENTER AND FOLDER Work Phone: [facility] Start: 07-22-2024 End: 07-22-2024 Bamboo Trips n Salsaheet Zulema B Apling MACHINE CEMENTER AND FOLDER Work Phone: [facility] Start: 07-22-2024 End: 07-22-2024 Office outpatient visit 15 minutes Zulema Smith Apling MACHINE CEMENTER AND FOLDER Work Phone: [facility] Comment on above: Left hand pain (Prim isamar Dx); Contusion of dorsum of left hand; Closed nondisplaced fracture of base of fifth metacarpal bone of left hand with routine healing, subsequent encounter Start: 07-22-2024 End: 07-22-2024 ambulatory ZULEMA B APLING Not Available Start: 07-10-2024 End: 07-10-2024 Bamboo flowsheet Zulema Smith Apling MACHINE CEMENTER AND FOLDER Work Phone: [facility] Start: 07-10-2024 End: 07-10-2024 Bamboo flowsheet Zulema Smith Apling MACHINE CEMENTER AND FOLDER Work Phone: [facility] Start: 07-10-2024 End: 07-10-2024 Office outpatient visit 15 minutes Zulema Smith Apling MACHINE CEMENTER AND FOLDER Work Phone: [facility] Comment on above: Closed nondisplaced fracture of right patella, unspecified fracture morphology, initial encounter (Primary Dx); Right knee pain, unspecified chronicity Start: 07-10-2024 End: 07-10-2024 ambulatory ZULEMA B APLING Not Available Start: 06-24-2024 End: 06-24-2024 Bamboo flowsheet Zulema Smith Apling MACHINE CEMENTER AND FOLDER Work Phone: [facility] Start: 06-24-2024 End: 06-24-2024 Bamboo flowsheet Zulema Smith Apling MACHINE CEMENTER AND FOLDER Work Phone: [facility] Start: 06-24-2024 End: 06-24-2024 Office outpatient visit 25 minutes Zulema Nicholsing MACHINE CEMENTER AND FOLDER Work Phone: [facility] Comment on above: Left hand pain (Prim isamar Dx); Right knee pain, unspecified chronicity; Contusion of right knee, initial encounter; Contusion of dorsum of left hand; Left shoulder pain, unspecified chronicity; Arthritis of left acromioclavicular joint; Glenohumeral arthritis, left Start: 06-24-2024 End: 06-24-2024 ambulatory ZULEMA B APLING Not Available Start: 06-13-2024 End: 06-13-2024 ambulatory ZOILA MONAE Facility:[facility] Start: 06-13-2024 End: 06-13-2024 Patient encounter procedure Zoila Monae MD Work Phone: [facility] Comment on above: Transient neurologic al symptoms (Primary Dx) Start: 06-11-2024 ambulatory ZOILA MONAE Facili ty:[facility] Start: 06-11-2024 End: 06-11-2024 Subsequent hospital visit by physician Eeg [facility] Work Phone: [facility] Comment on above: Memory deficit [R41. 3] Start: 06-04-2024 End: 06-04-2024 Orders Only Zoila Monae MD Work Phone: [facility] Comment on above: Memory deficit (Prim isamar Dx); Auditory hallucinations; Mentally challenged Start: 05-28-2024 End: 09-19-2024 Telephone encounter Zoila oMnae MD Work Phone: [facility] Start: 05-28-2024 End: 05-28-2024 ambulatory ELLIOT [facility] Start: 03-06-2024 End: 03-06-2024 ambulatory TONY AMAYA Facility:[facility] Start: 03-06-2024 End: 03-06-2024 Patient encounter procedure Zoila Monae MD Work Phone: [facility] Comment on above: Memory deficit (Prim isamar Dx); Auditory hallucinations; Mentally challenged Start: 01-03-2023 End: 01-07-2023 Evaluation and management of inpatient DR TONY AMAYA . Facility:[facility] Start: 11-01-2022 End: 11-02-[address] TONY AMAYA . Facility:[facility] Start: 09-30-2022 End: 10-01-[address] ROSALINA RESENDIZ Facility:[facility] Start: 09-02-2022 End: 09-02-2022 ambulatory MD Tony Amaya Work Phone: [facility] Work Phone: Start: 09-02-2022 End: 09-02-2022 Patient encounter procedure MD Tony Amaya Work Phone: [facility] Start: 08-25-2022 End: 08-25-[address] ROSALINA RESENDIZ Facility:[facility] Start: 08-10-2022 End: 08-12-2022 Admission to same day surgery center MD [facility] Start: 08-10-2022 End: 08-12-2022 ambulatory MD Tony Amaya Work Phone: [facility] Work Phone: Start: 08-08-2022 End: 08-08-2022 ambulatory MD Tony Amaya Work Phone: [facility] Work Phone: Start: 08-08-2022 End: 08-08-2022 Departed Referred MD Tony Amaya [facility] Start: 08-05-2022 End: 08-05-2022 ambulatory MD Tony Amaya Work Phone: [facility] Work Phone: Start: 08-05-2022 End: 08-05-2022 Patient encounter procedure MD Tony Amaya Work Phone: [facility] Testing Start: 07-30-2022 End: 07-30-[address] ROSALINA RESENDIZ Facility:[facility]1 Start: 07-04-2022 End: 07-06-[address] TONY AMAYA . Facility:[facility]1 Start: 07-04-2022 End: 07-04-[address] ALBERTO FERRO Facility:[facility]1 Start: 06-29-2022 Encounter for preprocedural laboratory examination [facility] . [facility] Start: 06-27-2022 End: 06-28-2022 ambulatory [facility] . Facility:[facility]1 Start: 06-27-2022 End: 06-28-2022 Encounter for preprocedural laboratory examination [facility] . Facility:[facility]1 Start: 06-22-2022 End: 06-23-2022 ambulatory [facility] . Facility:[facility]1 Start: 06-20-2022 End: 06-20-2022 [...] Evaluation and management of inpatient EMMY TOLEDO Facility:[facility] Procedures Date Procedure Procedure Detail Performing Clinician Start: 11-28-2024 End: 11-28-2024 Needle emg ea extremty w/paraspinl area complete Monika Vargas DO Work Phone: Start: 11-26-2024 Urine culture Tony Amaya MD Work Phone: Start: 10-07-2024 Radex hand minimum 3 views Zulema B [place] g [employer] Work Phone: Start: 09-16-2024 Radex hand minimum 3 views Zulema B [place] g [employer]ACHINE [employer]DER Work Phone: Start: 09-16-2024 Radiologic examination knee 3 views Zulema Luis Apling MACHINE C[employer]ER AND [employer]DER Work Phone: Start: 08-19-2024 Radex hand minimum 3 views Zulema B [place] g MACHINE [employer]DER Work Phone: Start: 08-07-2024 End: 08-07-2024 Radex elbow 2 views Zulema Luis Apling MACHINE C[employer]ER AND [employer]DER Work Phone: Start: 07-22-2024 Radex hand minimum 3 views Zulema B [place] g MACHINE C[employer] AND [employer]DER Work Phone: Start: 06-24-2024 Radiologic examination knee 3 views Zulema Smith Apling MACHINE C[employer]ER AND [employer]DER Work Phone: Start: 06-11-2024 Electroencephalogram w/rec awake&drowsy Zoila Monae MD Work Phone: Start: 06-11-2024 Electroencephalogram w/rec awake&drowsy Provider [facility] Start: 09-02-2022 Plain chest X-ray MD [...] RSV Vaccine (1 - 1-dose 75+ series) [facility] Start: 02-19-2027 Diabetes Screening Diabetes Screening [facility] Start: 06-04-2025 End: 06-04-2025 Patient encounter procedure 06/04/2025 1:00 PM EDT [facility] [address] [place] [address] Jr. Luis Armando Teague, [address] [facility] [address] [place] [address] [facility] [place] [facility] Start: 05-05-2025 End: 05-05-2025 Patient encounter procedure 05/05/2025 2:00 PM EDT Office Visit [facility] [place] [facility] [address] [place] [phone] Naseem Carter, MACHINE [employer]DER [address] [place] [address] Arrived [facility] Comment on above: Arrived Start: 03-11-2025 End: 03-11-2025 Patient encounter procedure 03/11/2025 2:00 PM EDT Office Visit [facility] [address] [place] [phone] Cuhy Jeter PA [address] [facility] [address] [place] [address] [facility] Start: 02-17-2025 End: 02-17-2025 Patient encounter procedure 02/17/2025 1:30 PM EDT Office Visit [facility] [address] [place] [phone] Naseem Carter, MACHINE C[employer]ER [employer]DER [address] [place] [address] [facility] Start: 02-10-2025 End: 02-10-2025 Patient encounter procedure 02/10/2025 11:00 AM EDT Office Visit [facility] [address] [place] [phone] Naseem Carter NP [address] [place] [address] [facility] Start: 12-04-2024 [facility] Start: 12-01-2024 Hospital admission [facility] Start: 12-01-2024 [facility] Start: 11-26-2024 Urine culture [facility] Start: 11-26-2024 Bacteria identified in Urine by Culture Urine Culture [facility] Start: 11-11-2024 End: 11-11-2024 Patient encounter procedure 11/11/2024 10:00 AM EST Office Visit [facility] [address] [place] [address] Zulema Mackay NP [address] [place] [address] [facility] Start: 11-08-2024 End: 11-08-2024 ambulatory 11/08/2024 12:00 PM EST Treatment [facility] [address] [place] [address] Zehra Bunch, OT [address] [place] [address] [facility] Start: 11-05-2024 End: 11-05-2024 ambulatory 11/05/2024 12:00 PM EST Treatment [facility] [address] [place] [address] Zehra Bunch, OT [address] [place] [address] [facility] Start: 11-01-2024 End: 11-01-2024 ambulatory 11/01/2024 1:00 PM EST Treatment [facility] [address] [place] [address] Zehra Bunch, OT [address] [place] [address] [facility] Start: 10-29-2024 End: 10-29-2024 ambulatory [facility] Comment on above: Arrived Start: 10-25-2024 End: 10-25-2024 ambulatory 10/25/2024 9:00 AM EST Treatment [facility] [address] [place] [address] Zehra Bunch, OT [address] [place] [address] [facility] Start: 10-22-2024 End: 10-22-2024 ambulatory 10/22/2024 1:00 PM EST Evaluation [facility] [address] [place] [address] Zehra Bunch, OT [address] [place] [address] Closed nondisplaced fracture of base of fifth metacarpal bone of left hand with routine healing, subsequent encounter [facility] Comment on above: Closed nondisplaced fracture of base of fifth metacarpal bone of left hand with routine healing, subsequent encounter Start: 10-11-2024 End: 10-11-2024 ambulatory 10/11/2024 1:30 PM EST Evaluation [facility] [address] [place] [address] Florina Degroot, OT [address] [place] [address] [facility] Start: 10-07-2024 End: 10-07-2024 Patient encounter procedure 10/07/2024 11:15 AM EST Office Visit [facility] [address] [place] [address] Zulema Mackay, MACHINE C[employer]ER AND FOLDER [address] [place] [address] [facility] Start: 09-16-2024 End: 09-16-2024 Patient encounter procedure 09/16/2024 10:00 AM EST Office Visit [facility] [address] [place] [address] Zulema Mackay, MACHINE C[employer]ER AND FOLDER [address] [place] [address] [facility] Start: 08-19-2024 End: 08-19-2024 Patient encounter procedure 08/19/2024 12:30 PM EST Office Visit [facility] [address] [place] [address] Zulema Mackay, MACHINE CEMENTER AND FOLDER [address] [place] [address] [facility] Start: 08-07-2024 End: 08-07-2024 [...] [address] [place] [address] Zulema Mackay, MACHINE CEMENTER AND FOLDER [address] [place] [address] Arrived [facility] Comment on above: Arrived Start: 06-24-2024 End: 06-24-2024 Patient encounter procedure 06/24/2024 10:30 AM EDT Office Visit [facility] [address] [facility] [address] [place] [address] Zulema Mackay, [place] [address] [facility] [address] [place] [address] Left hand pain (Primary Dx); Right knee [...] 06/13/2024 12:30 PM EDT Office Visit [facility] [address] [place] [address] [place] [address] [place] [address] Return in about 3 months (around 06/06/2024) for with Dr. Monae. [facility] Comment on above: Return in about 3 months (around ) for with Dr. Monae. Start: 06-11-2024 End: 06-11-2024 Patient encounter procedure 06/11/2024 9:00 AM EDT Appointment [facility] EEG [address] [address] Memory deficit [R41.3] [facility] Comment on above: Memory deficit [R41.3] Start: 06-02-2024 Covid-19 Vaccine ( season) Covid-19 Vaccine () [facility] Start: 06-02-2024 Covid-19 Vaccine ( season) Covid-19 Vaccine () [facility] Start: 06-02-2024 Influenza vaccination [facility] Start: 03-29-2024 End: 03-29-2024 Patient encounter procedure 03/29/2024 11:45 AM EDT Office Visit Neurology [address] [place] [address] Memory deficit [R41.3] Neurology Comment on above: Memory deficit [R41.3] Start: 10-02-2023 Behavioral Health Screening Behavioral Health Screening [facility] Start: 06-02-2023 Covid-19 Vaccine () Covid-19 Vaccine () [facility] Start: 08-12-2022 [facility] Start: 08-10-2022 Consultation [facility] Start: 08-10-2022 End: 08-10-2022 [facility] Start: 2014 Pneumococcal Vaccine: 50+ (1 of 1 - PCV) Pneumococcal Vaccine: 50+ (1 of 1 - PCV) [facility] Start: 2014 Shingrix Vaccine (1 of 2) Shingrix Vaccine (1 of 2) [facility] Start: 2009 Lipid panel Lipid Screening [facility] Start: 2009 Screening for malignant neoplasm of colon [facility] Start: 2004 Screening for malignant neoplasm of breast Mammogram Screening [facility] Start: 1994 Screening for malignant neoplasm of cervix HPV Testing [facility] Start: 1985 Screening for malignant neoplasm of cervix [facility] Start: 1983 Urine microalbumin profile DTaP,Tdap,Td Vaccine (1 - Tdap) [facility] Start: 1982 Anxiety Screening Anxiety Screening [facility] Start: 1982 Depression Screening Depression Screening [facility] Start: 1982 Hepatitis C screening Hepatitis C Screening [facility] Start: 1982 HIV screening HIV Screening [facility] Acid Fast Bacilli Cu lture & Smear Acid Fast Bacilli Culture & Smear [facility] Anaerobic microbial culture Anaerobic Culture [facility] Bacteria identified in Urine by Culture Urine Culture [facility] Chlamydia trachomati s [Presence] in Unspecified specimen by Organism specific culture [facility] Work Phone: Chlamydia trachomati s [Presence] in Unspecified specimen by Organism specific culture [facility] EEG EEG NEUROLOGY 12:00 AM EDT [facility] End: 03-06-2025 EPIL EEG ROUTINE EPIL EEG ROUTINE NEUROLOGY Routine Memory deficit Auditory hallucinations 1 Occurrences starting 03/06/2024 until 03/06/2025 [facility] Work Phone: Comment on above: 1 Occurrences starting 03/06/2024 until 03/06/2025 Fungal Culture Result 1 Fungal Culture Re sult 1 [facility] Fungus identified in Unspecified specimen by Culture [facility] Work Phone: Mycobacterium sp identified in Unspecified specimen by Organism specific culture [facility] Work Phone: Mycology Culture Mycology Culture [facility] Patient Education Bipolar disord er - Discharge instructions [facility] Instructions Know your Meds [facility] Work Phone: Patient referral [facility] Work Phone: [facility] Payers Date Payer Category Payer Self-pay 2017 Medicaid [id number] 2017 Medicaid (Managed Care) [facility] MEDICAID [id number] 1964 Unknown [id number] 2.16.840.1.148423.3.579.2. 647 1964 Unknown [id number] 2.16.840.1.169492.3.579.2. 593 1964 Unknown [id number] 2.16.840.1.896347.3.579.2. 593 1964 Unknown [id number] 2.16.840.1.128191.3.579.2. 593 1964 Unknown [id number] 2.16.840.1.493944.3.579.2. 593 1964 Unknown [id number] 2.16.840.1.080312.3.579.2. 593 1964 Unknown [id number] 2.16.840.1.286328.3.579.2. 593 1964 Unknown [id number] 2.16.840.1.983427.3.579.2. 593 1964 Unknown [id number] 2.16.840.1.225406.3.579.2. 593 1964 Unknown [id number] 2.16.840.1.853610.3.579.2. 593 1964 Unknown [id number] 2.16.840.1.166618.3.579.2. 593 1964 Unknown [id number] 2.16.840.1.406591.3.579.2. 593 1964 Unknown [id number] 2.16.840.1.089626.3.579.2. 593 1964 Unknown [id number] 2.16.840.1.564299.3.579.2. 593 1964 Unknown [id number] 2.16.840.1.105941.3.579.2. 593 1964 Unknown [id number] 2.16.840.1.139680.3.579.2. 1259 1964 Unknown [id number] 2.16.840.1.810999.3.579.2. 1258 1964 Unknown [id number] 2.16.840.1.919127.3.579.2. 1258 1964 Unknown [id number] 2.16.840.1.457350.3.579.2. 1258 1964 Unknown [id number] 2.16.840.1.987146.3.579.2. 1258 1964 Unknown [id number] 2.16.840.1.880634.3.579.2. 1258 1964 Unknown [id number] 2.16.840.1.334459.3.579.2. 1258 1964 Unknown [id number] 2.16.840.1.838172.3.579.2. 1258 1964 Unknown [id number] 2.840.1.395309.3.579.2. 1258 1964 Unknown [id number] 2.840.1.480068.3.579.2. 1258 1964 Unknown [id number] 2.16.840.1.276153.3.579.2. 1258 1964 Unknown [id number] 2.16.840.1.605273.3.579.2. 1258 1964 Unknown [id number] 2.16840.1.173316.3.579.2. 1258 1964 Unknown [id number] 2.16.840.1.081635.3.579.2. 1258 1964 Unknown [id number] 2.16.840.1.078185.3.579.2. 1258 1964 Unknown [id number] 2.16.840.1.975504.3.579.2. 1258 1964 Unknown [id number] 2.16.840.1.393128.3.579.2. 1258 1964 Unknown [id number] 2.16.840.1.194807.3.579.2. 1258 1964 Unknown [id number] 2.16.840.1.399870.3.579.2. 1258 1964 Unknown [id number] 2.16.840.1.845628.3.579.2. 1258 1964 Unknown [id number] 2.16.840.1.889191.3.579.2. 1258 1964 Unknown [id number] 2.16.840.1.668358.3.579.2. 1258 1964 Unknown [id number] 2.16.840.1.253240.3.579.2. 1258 1964 Unknown [id number] 2.16840.1.459546.3.579.2. 1258 1964 Unknown [id number] 2.16.840.1.797452.3.579.2. 9 1959 Self-pay [id number] 1959 Unknown [id number] Medicaid [employer] Medicaid [id number] Unknown [id number] 2.840.1.363339.3.579.2. 531 Unknown [id number] 2.840.1.669019.3.579.2. 531 Unknown [id number] 2.840.1.231738.3.579.2. 531 Social History Date Type Detail Facility Tobacco smoking stat us NVIS Unknown if ever smoked [facility] Work Phone: Start: 1965 Sex Assigned At Female [facility] Start: 08-10-2022 End: 06-24-2024 Tobacco smoking status NHIS Never smoked tobacco (finding) [facility] Start: 03-06-2024 Tobacco smoking status NVIS Tobacco smoking consumption unknown [facility] Start: 03-06-2024 End: 05-05-2025 History of Social function [facility] Start: 03-06-2024 End: 05-05-2025 Area Deprivation Index [facility] National Score (1-10 0), lower number is lower risk 76 [facility] Start: 1965 Sex Assigned At Not on file [facility] Start: 06-24-2024 Tobacco use and exposure Smokeless tobacco non-user [facility] Start: 06-24-2024 End: 05-05-2025 Alcoholic beverage intake Ex-drinker (finding) [facility] Start: 06-21-2024 Gender identity Identifies as female gender (finding) [facility] Start: 06-21-2024 Sexual orientation Heterosexual (finding) [facility] Start: 11-28-2024 End: 12-04-2024 Sex Female (finding) [facility] Medical Equipment Procedure Code Equipment Code Equipment Origin al Text Equipment Identifier Dates Thoracotomy Surgical adhesive/sealant, human-derived ([id number] FDA Start: 08-10-2022 Goals Date Patient Goal Desired Activity /State Functional Status Date Assessment Result Facility 12-04-2024 Functional status Patient at Baseline [facility] Work Phone: 08-12-2022 Functional status Patient at Baseline [facility] Work Phone: Mental Status Date Assessment Result Facility 12-04-2024 Cognitive function Cognitive Sta tus Patient at Baseline [facility] Work Phone: 08-12-2022 Cognitive function Cognitive Sta tus Patient at Baseline [facility] Work Phone: Clinical Notes 08-10-2022 to 05-21-2025 Telephone Encounter - Naseem Carter NP - 05/21/2025 4:10 PM EDTTelephone Encounter - Naseem Carter NP - 05/21/2025 4:10 PM EDTGanthony Carter NP - 05/05/2025 2:00 PM EDT Note Date & Type Note Facility 05-21-2025 Telephone encounter Note Post op pain rx. PDMP reviewed [facility] 05-21-2025 Miscellaneous Notes Post op pain rx. PDMP reviewed documented in this encounter [facility] 05-05-2025 History of Presen t illness Narrative Images from the original note were not included. GENERAL HISTORY AND PHYSICAL: NAME: Emigdio Apodaca : 1965 HISTORY OF PRESENT ILLNESS: Emigdio Apodaca is an 59 y.o. @ female. Here for surgery instructions left carpal tunnel release May 22 @ [facility]. PAST MEDICAL HISTORY: Past Medical History: [...] Daily RT ergocalciferol (Vitamin D-2) 1.25 MG (85868 UT) capsule 1 capsule escitalopram (LEXAPRO) 10 [...] for Post-Op June 04 @ 1:[address] [place] [address] Teague. documented in this encounter [facility] 03-28-2025 Note Patient here today f or a 4 month follow up. Patient states she is doing well, no cardiac complaints at this time. Patient states she will be having left hand surgery in April or May with Dr. Teague. Review of Systems Constitutional: Negative. [facility] 03-28-2025 Note SUBJECTIVE Reason for Visit: Emigdio [...] bradycardia. The patient was recently admitted to [facility] (11/25-11/27) after running out of home oxygen for approximately two weeks, experiencing dizziness, shortness of breath, and oxygen desaturations below 90%. She also had a four-day history of fever, nausea, vomiting, and decreased oral intake. Workup revealed influenza A and right lower lobe pneumonia. She was treated with supplemental oxygen, Tamiflu, steroids, and antibiotics before discharge. Most recent discharge from [facility] admission date 02/20/2025 Primary diagnoses hypoxia, acute [...] 20 mg, Daily (more content not included)... [facility] 02-17-2025 History of Presen t illness Narrative [...] Daily RT ergocalciferol (Vitamin D-2) 1.25 MG (71116 UT) capsule 1 capsule escitalopram (LEXAPRO) 10 [...] Naseem Carter NP documented in this encounter [facility] 02-11-2025 Telephone encounter Note Patient can come to [place] 02/17 at 1:30. [facility] 02-11-2025 Miscellaneous Notes Patient can come to [place] 02/17 at 1:30. Called patient back, had to leave a voicemail. She does need to come back in for surgery instructions. She can do Monday @ 1:30 if she calls back. Patient called and left vm stating she missed her appt today because she had the flu. Please call patient at [phone]. documented in this encounter [facility] 02-11-2025 Telephone encounter Note Called patient back, had to leave a voicemail. She does need to come back in for surgery instructions. She can do Monday @ 1:30 if she calls back. [facility] 02-10-2025 Telephone encounter Note Patient called and left vm stating she missed her appt today because she had the flu. Please call patient at [phone]. [facility] 01-08-2025 History of Presen t [...] CONTUSION TO (L) HAND ; TAKEN TO [facility] [place] WITH NORCO (R) [...] Daily RT ergocalciferol (Vitamin D-2) 1.25 MG (17299 UT) capsule 1 capsule escitalopram (LEXAPRO) 10 [...] is normal. 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 documented in this encounter [facility] 12-04-2024 Discharge summary Note Date/Time December 04, 2024 9:05 am [facility] [address] [place], [place] [id number] Discharge Summary Signed Patient: Emigdio Apodaca MR#: [id number] : 1965 Acct:[id number] Age/Sex: 59 / F Adm Date: 5 Loc: Room: [address] [place] [address]: Jaquan Babin MD Copies to: [...] respond. 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 She reports not eating, poor ADLs, not taking her medications and sleeping too much. She denies alcoholor illegal substance abuse. Patient denies hallucinations. Patient did report her sister completed suicide. Of note, patient reports being in [facility] Monday and Monday of last week with [...] them since Monday when she was at [facility] for the flu. She states her diarrhea has improved. She did eat some breakfast this morning but states she is a picky eater. Patient sees Jennifer Beasley, counselor in [place]. 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 If at any time you are feeling an increase inyour psychiatric symptoms, call your physician or behavioral healthcare provider. If any time you have thoughts of harming yourself or others contact one of the following: Call (available 24/04) Crisis Text Line (available 24/04) text 4HOPE to [phone] [facility] Hope Line (available 8 a.m. Midnight) call [phone] ([phone]) Instructions: Know your Meds Prescriptions: Continued lamotrigine [...] Patient Comments: 3 days left Follow Up: [facility] [Outside] (established) Tony Amaya MD [...] signed by Jaquan Babin MD> 12/04/24 1005 [facility] Work Phone: 1(408) 348-927803-05-[address] [address] Discharge Summary Signed Patient: Emigdio Apodaca MR#: [id number] : 1965 Acct:[id number] Age/Sex: 59 / F Adm Date: 5 Loc: Room: [address] [place] [address]: Jaquan Babin MD Copies to: [...] respond. 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 She reports not eating, poor ADLs, not taking her medications and sleeping too much. She denies alcoholor illegal substance abuse. Patient denies hallucinations. Patientdid report her sister completed suicide. Of note, patient reports being in [facility] Monday and Monday of last week with [...] them since Monday when she was at [facility] for the flu. She states herdiarrhea has improved. She did eat some breakfast this morning but states she is a picky eater. Patient sees Jennifer Beasley, counselor in [place]. 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 If at anytime you are feeling an increase inyour psychiatric symptoms, call your physician or behavioral healthcare provider. If any time you have thoughts of harming yourself or others contact one of the following: Call (available 24/04) Crisis Text Line (available 24/04) text 4HOPE to [phone] [facility] Hope Line (available 8 a.m. Midnight) call [phone] ([phone]) Instructions: Know your Meds Prescriptions: Continued lamotrigine [...] Patient Comments: 3 days left Follow Up: [facility] - [facility] [Outside] (established) Tony Amaya MD [Primary Care Provider] - (Call for any medical needs) Exam Physical Exam Vital Signs: Temp Pulse Resp BP Pulse Ox O2 Del Method 98.1 F 78 16 99/66 L 96 Room Air 12/03/24 20:15 12/03/24 20:15 12/03/24 20:15 12/03/24 20:15 12/03/24 20:15 12/03/24 20:15 Documented By: Jaquan Babin MD 12/04/24 1001 Signed By: 12/04/24 1005 [facility]03-04-2025 Progress note Author Jaquan Babin [facility] Note Date/Time December 03, 2024 1:11 pm [facility] ENTER [address] [place] [address] Psychiatry Progress Note Signed Patient: Emigdio Apodaca MR#: [id number] : 1965 Acct:[id number] Age/Sex: 59 / F Adm Date: 5 Loc: Room: [address] [place] [address] Type : ADM IN Attending Dr: Jaquan [...] <Electronically signed by Jaquan Babin MD> 12/03/24 [facility] Work Phone: 1(444) 663-177803-04-2025 [place] [address] Psychiatry Progress Note Signed Patient: Emigdio Apodaca MR#: [id number] : 1965 Acct:[id number] Age/Sex: 59 / F Adm Date: 5 Loc: Room: [address] [place] [address] Type : ADM IN Attending Dr: Jaquan [...] MD 12/03/24 0939 Signed By: 12/03/24 1411 [facility]03-03-2025 History and physical note Author Jaquan Babin [facility] Note Date/Time December 02, 2024 1:55 pm [facility] ENTER [address] [place] [address] Psychiatry H&P Signed Patient: Emigdio Apodaca MR#: [id number] : 1965 Acct:[id number] Age/Sex: 59 / F Adm Date: 5 Loc: Room: [address] [place] [address] Type: ADM IN Attending Dr: Jaquan Babin [...] respond. 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 She reports not eating, poor ADLs, not taking her medications and sleeping too much. She denies alcoholor illegal substance abuse. Patient denies hallucinations. Patient did report her sister completed suicide. Of note, patient reports being in [facility] Monday and Monday of last week with [...] them since Monday when she was at [facility] for the flu. She states her diarrhea has improved. She did eat some breakfast this morning but states she is a picky eater. Patient sees Jennifer Beasley counselor in [place]. 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 She reports not eating, poor ADLs, not taking her medications and sleeping too much. She denies alcoholor illegal substance abuse. Patient denies hallucinations. Patientdid report her sister completed suicide. Of note, patient reports being in [facility] Monday and Monday of last week with [...] them since Monday when she was at [facility] for the flu. She states her diarrhea has improved. She did eat some breakfast this morning but states she is a picky eater. Patient sees Jennifer Beasley counselor in [place]. 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 The patient was recently admitted to [facility] (11/25-11/27) after running out of home oxygen [...] feeling well without complaints of CP, worsened CURARN, le edema, palpitations She continues to have [...] Ventricular Rate 02/21/2024 79 (more content not included)...[facility]02-27-2025 History of Present illness Narrative* KATLIN Sal - 11/28/2024 11:00 AM EST Images from the original note were not included. Reason for Appointment: EMG Patient: Emigdio Apodaca : 1965 EMG Computer: Plerts Referring Physician: Zulema GIBSON EMG: CAITLIN patch washer: Tye Dominguez RT(R) Office Location: [place] Reason for EMG: c/o numbness/tingling in left hand. No hx of DM. Not on blood thinners. Comments: Procedure was explained to the patient who expressed understanding. Patient appeared to have tolerated the test well despite some discomfort due to the nature of the test. documented in this encounterMineral Area Regional Medical [id number] History of Present illness Narrative* Zulema Luis Mackay, MACHINE CEMENTER AND FOLDER - 11/11/2024 10:00 AM EST Images from [...] able to walk afterwards, was taken to [facility] ER on 06/19/24 by her partner [...] to the therapist recommending a Neurologist. [place]: XR/06/19/24/[facility] LT hand, RT knee, LT shoulder, [facility] ER 06/19/24, norco, IBU, XR NOMS [...] able to walk afterwards, was taken to [facility] ER on 06/19/24 by her partner [...] sensation in all fingers documented in this encounterMineral Area Regional Medical CenterYqokeigbkh23-23-7671 History of Present illness Narrative* Zehra Bunch OT - 11/08/2024 12:00 PM EST Occupational Therapy Occupational Therapy Treatment Visit Patient Name: Emigdio Apodaca Today's Date: 11/08/2024 Linked Episodes Type: Episode: Status: Noted: Resolved: Last update: Updated by: Occupational Therapy L 5th digit fracture Active 10/08/2024 11/08/2024 9:28 AM Zehra Bunch OT Comments:Episode created from referral [id number] Visit number: 02/06 Timed Code Treatment minutes: [...] numbness and spasms to the L hand. Desizing Machine Operator Head End strength has increased to 25# and LP has remained at 5#. Encouraged stretching/ nerve glides at home. Does have a follow upwith ortho on Monday. P: Continue with POC, progress per toleration. documented in this encounterMineral Area Regional Medical CenterHkyquxcede38-84-1340 History of Present illness Narrative* Zehra Bunch OT - 11/05/2024 12:00 PM EST Occupational Therapy Occupational Therapy Treatment Visit Patient Name: Emigdio Apodaca Today's Date: 11/05/2024 Linked Episodes Type: Episode: Status: Noted: Resolved: Last update: Updated by: Occupational Therapy L 5th digit fracture Active 10/08/2024 11/01/2024 12:46 PM Zehra Bucnh OT Comments:Episode created from referral [id number] Visit number: 01/07 Timed Code Treatment minutes: [...] POC, progress per toleration. documented in this encounterMineral Area Regional Medical CenterZtjofwnoje03-25-5657 Telephone encounter Note* Telephone Encounter - Joanna Boo - 11/01/2024 12:43 PM EST She called noting not feeling well and is cx OT for today. I reminded her, her next on 11/05. She said she'll try to be here; I told her if not feeling better to contact. [facility] [id number] Miscellaneous Notes* Telephone Encounter - Joanna Boo - 11/01/2024 12:43 PM EST She called noting not feeling well and is cx OT for today. I reminded her, her next on 11/05. She said she'll try to be here; I told her if not feeling better to contact. documented in this encounterMineral Area Regional Medical CenterZechepmkkc06-21-6512 History of Present illness Narrative* Zehra Bunch OT - 10/29/2024 1:00 PM EST Occupational Therapy Occupational Therapy Treatment Visit Patient Name: Emigdio Apodaca Today's Date: 10/29/2024 Linked Episodes Type: Episode: Status: Noted: Resolved: Last update: Updated by: Occupational Therapy L 5th digit fracture Active 10/08/2024 10/28/2024 1:49 PM Zehra Bunch OT Comments:Episode created from referral [id number] Visit number: 12/07 Timed Code Treatment minutes: [...] POC, progress per toleration. documented in this encounterMineral Area Regional Medical CenterXzbpwcsndg65-76-1601 History of Present illness Narrative* Zehra Bunch OT - 10/25/2024 9:00 AM EST Occupational Therapy Occupational Therapy Treatment Visit Patient Name: Emigdio Apodaca Today's Date: 10/25/2024 Linked Episodes Type: Episode: Status: Noted: Resolved: Last update: Updated by: Occupational Therapy L 5th digit fracture Active 10/08/2024 10/24/2024 11:08 AM Zehra Bunch OT Comments:Episode created from referral [id number] Visit number: 11/09 Timed Code Treatment minutes: [...] POC, progress per toleration. documented in this encounterMineral Area Regional Medical CenterAqtgyvvrfd29-21-4314 History of Present illness Narrative* Zehra Bunch [...] Amb, Background User Comments:Episode created from referral [id number] Visit number: 1 Subjective Interim History: 59 [...] 5th digit. Strength Strength additional comments: L railcar carpenter strength: 15# LP: 5# R railcar carpenter strength: 30# LP: 9 Treatment: Education: HEP [...] for light strengthening and ROM at discharge. [employer] Trimmer Goals: PRWHE Pain Score < 10/50 ( IE: 33/50) PRWHE Functional Score < 10/100 ( IE:57/100 ) Increase L 5th digit CHAO to 100% pain free in order to complete I/ADL tasks at discharge. Pt to increase railcar carpenter strength by 10# and LP by 2# [...] Please sign below. Date: documented in this encounterMineral Area Regional Medical CenterSnqqaalxpy62-28-9796 Telephone encounter Note* Telephone Encounter - Joanna Boo - 10/08/2024 1:36 PM EST She called back and we scheduled her OT Eval for 10/11 w/ Florina Rexroad, OT. [facility] CenterRmgsezcalx06-55-9483 Miscellaneous Notes* Telephone Encounter - Joanna Boo - 10/08/2024 1:36 PM EST She called back and we scheduled her OT Eval for 10/11 w/ Florina Rexroad, OT. * Telephone Encounter - Joanna Boo - 10/08/2024 11:46 AM EST Tried to contact to set-up OT for L hand, but the voicemail is full. documented in this encounterNOAudrain Medical CenterMrgvgjulql88-80-3475 Telephone encounter Note* Telephone Encounter - Joanna Boo - 10/08/2024 11:46 AM EST Tried to contact to set-up OT for L hand, but the voicemail is full. [facility] CenterMkifbhoovc94-61-7491 History of Present illness Narrative* Zulema Mackay NP - 10/07/2024 11:15 AM EST Images from the original note were not included. Subjective Patient ID: Emigdio Apodaca is a 59 y.o. female. LT hand 3.5 months s/p LT hand contusion She notes a few days after getting the cast off, she smashed her hand in the car door at [facility]. Here to check ROM Pt had tripped over a sidewalk and Fell landing on her left hand and right knee. DOI 06/19/24, she then hit her chest and rolled over onto her left shoulder hitting her shoulder. She was able to walk afterwards, was taken to [facility] ER on 06/19/24 by her partner [...] XR/06/19/24/[facility] LT hand, RT knee, LT shoulder, [facility] ER 06/19/24, norco, IBU, XR NOMS 07/22/24, XRNOMS 08/19/[address] RT knee [facility] 07/05/24 Notes she started taking fosamax in 2023. States her knee is feeling better. 3.5 months Pt had tripped over a sidewalk and Fell landing on her left hand and right knee. DOI 06/19/24, she then hit her chest and rolled over onto her left shoulder hitting her shoulder. She was able to walk afterwards, was taken to [facility] ER on 06/19/24 by her partner [...] able to walk afterwards, was taken to [facility] ER on 06/19/24 by her partner Pt is RT handed. Hand is stiff and has been getting spasms still between 4th and 5th MC. Denies pain today. Taking TYL for multiple things. Using ice and heat. Has been moving fingers. Good ROM. Intermittent numbness, mostly in thumb. Intermittent swelling. Sometimes wakes at HS. [place]: XR/06/19/24/[facility] LT hand, RT knee, LT shoulder, [facility] ER 06/19/24, norco, IBU, XR NOMS [...] able to walk afterwards, was taken to [facility] ER on 06/19/24 by her partner [...] was dx with 6 months ago. [place]: XR/06/19/24/[facility] LT hand, RT knee, LT shoulder, [facility] ER 06/19/24, norco, IBU, XR NOMS 06/24, CT TBH1, XR NOMS 08/07/24 RT elbow Pt notes she fell on 08/04/23 and hit her right elbow. machine tender to the touch, medial elbow. [...] Capillary refill: <3 sec documented in this encounterMineral Area Regional Medical CenterGgkwazgqam92-45-1967 History of Present illness Narrative* Zulema Mackay [...] able to walk afterwards, was taken to [facility] ER on 06/19/24 by her partner [...] today, goes to 5-6/10 with spasms. [place]: XR/06/19/24/[facility] LT hand, RT knee, LT shoulder, [facility] ER 06/19/24, norco, IBU, XR NOMS [...] able to walk afterwards, was taken to [facility] ER on 06/19/24 by her partner [...] Capillary refill: <3 sec documented in this encounterMineral Area Regional Medical CenterDlpnwpdesm70-60-5502 History of Present illness Narrative* Zulema Mackay, MACHINE CEMENTER AND FOLDER - 08/19/2024 12:30 PM EST Images from [...] able to walk afterwards, was taken to [facility] ER on 06/19/24 by her partner [...] numbness in the thumb. Denies swelling. [place]: XR/06/19/24/[facility] LT hand, RT knee, LT shoulder, [...] base of 5th MC fracture. Zulema Mackay PILLOWCASE CUTTER Assessment/Plan Encounter Diagnoses: ICD-10-CM 1. Right elbow [...] of the left hand documented in this encounterMineral Area Regional Medical CenterDcjjlzcwqo57-55-4029 History of Present illness Narrative* Zulema Mackay NP - 08/07/2024 11:00 AM EST Images from the original note were not included. Subjective Patient ID: Emigdio Apodaca is a 58 y.o. female. RT Knee CT RT knee [facility] 07/05/24 Notes she started taking fosamax [...] able to walk afterwards, was taken to [facility] ER on 06/19/24 by her partner [...] was dx with 6 months ago. [place]: XR/06/19/24/[facility] LT hand, RT knee, LT shoulder, [facility] ER 06/19/24, norco, IBU, XR NOMS [...] healing non displaced patella fracture Zulema Mackay PILLOWCASE CUTTER XR elbow 1 or 2 views right Imaging Result: Xrays AP and LAT of the right elbow performed on August 07, 2024 demonstrates no swelling, no fractures appreciated, joint congruent. Impression Unremarkable xrays of the right elbow Zulema Mackay PILLOWCASE CUTTER Assessment/Plan Encounter Diagnoses: ICD-10-CM 1. Closed nondisplaced [...] how she is doing. documented in this encounterMineral Area Regional Medical CenterTwymsopewd01-06-8616 History of Present illness Narrative* Zulema Mackay [...] able to walk afterwards, was taken to [facility] ER on 06/19/24 by her partner Pt is RT handed. MC block cast intact. Pain is between LF and RF. Pain at rest 5/10, with activities (worse at night) 8/10. She is taking motrin prn for the pain. Admits constant numbness in the thumb. Denies swelling. [place]: XR/06/19/24/[facility] LT hand, RT knee, LT shoulder, [facility] ER 06/19/24, norco, IBU, XR NOMS [...] Healing 5th MC base fracture. Zulema Mackay PILLOWCASE CUTTER Assessment/Plan Encounter Diagnoses: ICD-10-CM 1. Left hand [...] of the left hand documented in this encounterMineral Area Regional Medical CenterBpscukuooi91-05-7995 History of Present illness Narrative* Zulema Mackay NP - 07/10/2024 12:15 PM EDT Images from the original note were not included. Subjective Patient ID: Emigdio paulie S Paulie is a 58 y.o. female. RT Knee CT RT knee [facility] 07/05/24 3 weeks ago, Pt had tripped over a sidewalk and Fell landing on her left hand and right knee. DOI 06/19/24, she then hit her chest and rolled over onto her left shoulder hitting her shoulder. She was able to walk afterwards, was taken to [facility] ER on 06/19/24 by her partner [...] was dx with 6 months ago. [place]: XR/06/19/24/[facility] LT hand, RT knee, LT shoulder, [facility] ER 06/19/24, norco, IBU, XR NOMS [...] ct of the right knee done at [facility] on 07/05/24 reveals a non displaced [...] or polycentric), positional orthosis, rigid support, prefabricated, gwq-ktx-kjump knee brace. Brace is locked at 0 [...] wbat in the brace documented in this encounterMineral Area Regional Medical [id number] History of Present illness Narrative* Zulema Mackay [...] able to walk afterwards, was taken to [facility] ER on 06/19/24 by her partner [...] xrays of the left hand done at [facility] on 06/19/24 reveals possible 5th MC fracture. I reviewed the xrays of the right knee and reveals possible patella fracture. I reviewed the xrays of the left shoulder and reveals AC and GH arthritis, no fractures noted. I reviewed [facility] ER report from 06/19/24 in addtion, [...] of the left hand documented in this encounterMineral Area Regional Medical CenterJzczxzhayu18-73-2050 History of Present illness Narrative* Zoila Monae MD - 06/13/2024 12:30 PM EDT [facility] Follow up/ Established patient visit Individuals who were included in, or assisted with the encounter were: Emigdio Apodaca Zoila Monae MD Chief Complaint/Issues: Emigdio Apodcaa is a 58 year old female seen in the [facility] for: Staring spells. [...] that she can have it done in [place] but she would rather come here. She [...] which included preparing to see the patient, zppv-sr-plkw patient care, completing clinical documentation, obtaining and/or reviewing separately obtained history, performing a medically appropriate examination, counseling and educating the pat ient/family/caregiver, ordering medications, tests, or procedures, communicating with other HCPs (not separately reported), and communicating results to the patient/family/caregiver. Zoila Monae MD documented in [facility]Sub[facility] NoteHNO ID: [id number] Author: ZOILA MONAE MD Service: ? Author Type: Physician Type: Progress Notes Filed: 06/13/2024 13:41 Note Text: [facility] Follow up/ Established patient visit Individuals who were included in, or assisted with the encounter were: Emigdio Apodaca Zoila Monae MD Chief Complaint/Issues: Emigdio Apodaca is a 58 year old female seen in the [facility] for: Staring spells. [...] that she can have it done in [place] but she would rather come here. She [...] Take 100 mg b (more content not included)...[facility]09-10-2024 NoteHNO ID: [id number] Author: NARCISA YUSUF MD Service: Neurology General Author Type: Physician Type: Procedures Filed: 06/13/2024 13:25 Note Text: [facility] - Electroencephalogram EMIGDIO APODACA : 1965 AGE: 58 SEX: F [id number]: ATTENDING PHYSICIAN: DATE OF PROCEDURE: 06/11/2024 [...] have been noted. Narcisa Yusuf M.D. Neurology [id number] Telephone encounter Note* Telephone Encounter - Zoila Monae MD - 06/04/2024 1:21 PM EDT A new neuropsych order has been put in. Thanks Zoila Monae MD [facility] Work Phone: 1(689) 261-800509-03-2024 Miscellaneous Notes* Telephone Encounter - Zoila Monae MD - 06/04/2024 1:21 PM EDT A new neuropsych order has been put in. Thanks Zoila Monae MD documented in this encounterSub[facility]09-03-2024 NoteHNO ID: [id number] Author: ZOILA MONAE MD Service: ? Author Type: Physician Type: Progress Notes Filed: 06/04/2024 13:22 Note Text: Neuropsychology order had when they tried to get her in. A new order has been put in and good for a year. Zoila Monae [facility]09-03-2024 History of Present illness Narrative* Zoila Monae MD - 06/04/2024 1:18 PM EDT Neuropsychology order had when they tried to get her in. A new order has been put in and good for a year. Zoila Monae MD documented in this encounterSuburban [facility]08-27-2024 Telephone encounter Note * Telephone Encounter - Iveth Salazar - 05/28/2024 9:17 AM EDT Call center called the office on patients behalf stating they tried to schedule NEUROPSYCHOLOGICAL TESTING CONSULT But the test is booking out further than the active request. Would need it re ordered for scheduling. [facility]08-27-2024 Miscellaneous Notes* Telephone Encounter - Iveth Salazar - 05/28/2024 9:17 AM EDT Call center called the office on patients behalf stating they tried to schedule NEUROPSYCHOLOGICAL TESTING CONSULT But the test is booking out further than the active request. Would need it re ordered for scheduling. documented in this encounterSub[facility]06-05-2024 History of Present illness Narrative* Zoila Monae MD - 03/06/2024 2:00 PM EDT Images from the original note were not included. [facility] New Patient Evaluation Consulting Provider: Tony Amaya [facility] [place] [id number] The patient presents with a chief complaint [...] year old Rh female seen in the [facility] for: Cognitive evaluation [...] Version 1 Total Score: 17/30 Visuospatial/Executive Alternating Nisula Making: Patient successfully draws the pattern without [...] fabric' (0) Word 3: Required multiple choice- 'mu-ism, school, hospital' (0) Word 4: Required category [...] signed: Karthikeyan Linn. Outside Data/Labs: 01/2024 at [facility]: Tox screen negative, Etoh negative, CBC is normal, CMP is normal, Folate 34, B12 148, TSH 0.01 IMPRESSION: Unremarkable intracranial CT angiogram. Unremarkable unenhanced CT of the brain. Unremarkable extracranial CT angiogram Subjective Patient-Entered Data: 03/04/24 - GENERAL NEUROLOGY SCORES I spent a total of 55 minutes on the date of the service which included preparing to see the patient, brcn-qj-lreb patient care, completing clinical documentation, obtaining and/or reviewing separately obtained history, performing a medically appropriate examination, counseling and educating the pat ient/family/caregiver, ordering medications, tests, or procedures, communicating with other HCPs (not separately reported), and communicating results to the patient/family/caregiver. Zoila Monae MD documented in this encounterSuburban [facility]06-05-2024 NoteHNO ID: [id number] Author: ZOILA MONAE MD Service: ? Author Type: Physician Type: Progress Notes Filed: 03/06/2024 15:39 Note Text: [facility] New Patient Evaluation Consulting Provider: Tony Amaya [address] [facility] [address] The patient presents with a chief complaint [...] year old Rh female seen in the [facility] for General Neurology for: Cognitive evaluation [...] for low IQ. She worked in a [employer] shop and only worked 6 months. She [...] Version 1 Total Score: 17/30 Visuospatial/Executive Alternating Nisula Making: Patient successfully draws the (more content not included)...[facility]11-11-2022 History and physical note Author Rodolfo Harley [facility] August 12, 2022 1:45pm Note Date/Time August 04, 2022 3 :52pm [facility] EN[facility] [address] [place] [address] Cardiothoracic Surgery H&P Signed Patient: Emigdio Apodaca MR#: [id number] : 1965 Acct:[id number] Age/Sex: 56 / F Adm Date: 2 Loc: [place] Room: Type: [facility] [place]: Rodolfo Harley MD Copies to: [...] IgG IgM and IgA were all negative. Anti-[place]-3 antibodies were 5.0. ?P ANCA was 1:80. 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 We will give 100 mg of IV Solu-Cortef on-call to the OR. We will utilize vancomycin and Levaquin given the questionable history of penicillin allergy with hives as a baby, although she states she recently had penicillin without issues. Documented By: Rodolfo Harley MD 08/04/22 1223 Signed By: <Electronically signed by MD Rodolfo Harley> 08/12/22 6035 [facility] Work Phone: 1(204) 903-999111-11-2022 Hospital Discharge instructionsAmbulatory Orders* Initiate Home Health Time Frame: 08/12/22, Location: Determined By Patient Additional Instructions no lifting 5-10 lbs. Continue Peridex mouthwash. May remove dressing tomorrow. Daily showers with Betasept wash. No driving.[facility] Work Phone: 1(263) 952-879611-11-2022 Progress note Author Monika Meza [facility] August 12, 2022 11:59am Note Date/Time August 12, 2022 8:13am [facility] EN[facility] [address] [place] [address] Pulmonology Progress Note Signed Patient: Emigdio Apodaca MR#: [id number] : 1965 Acct:[id number] Age/Sex: 56 / F Adm Date: 2 Loc: Room: [address] [place] [address] Type: REG SDC Attending Dr: Rodolfo Harley [...] <Electronically signed by MD Monika Meza> 08/12/22 1151 [facility] Work Phone: 1(837) 756-684411-10-2022 Progress note Author Monika Meza [facility] August 11, 2022 10:07am Note Date/Time August 11, 2022 7:43am [facility] EN[facility] [address] [place] [address] Pulmonology Progress Note Signed Patient: Emigdio Apodaca MR#: [id number] : 1965 Acct:[id number] Age/Sex: 56 / F Adm Date: 2 Loc: Room: [address] [place] [address] Type: [facility] Attending Dr: Rodolfo Harley MD [...] otherwise. Documented By: Monika Meza MD 2 [id number] Signed By: <Electronically signed by MD Monika Meza> 08/11/22 1007 [facility] Work Phone: 1(855) 882-444711-09-2022 Consult note Author Monika Meza [facility] August 10, 2022 5:46pm Note Date/Time August 10, 2022 5 :41pm [facility] [address] [place] [address] Pulmonology Consult Note Signed Patient: Emigdio Apodaca MR#: [id number] : 1965 Acct:[id number] Age/Sex: 56 / F Adm Date: 2 Loc: Room: [address] [place] [address] Type: REG SDC Attending Dr: Rodolfo Harley [...] been followed by Dr. Nadege Gardner at [place] with complaints of dyspnea on exertion as [...] able. Documented By: Monika Meza MD 2 [id number] Signed By: <Electronically signed by MD Monika Meza> 08/10/22 8326 [facility] Work Phone: Evaluation noteNo assessment information available [facility] Work Phone: evaluation note* Diagnosis Onset Date Resolution Status Bipolar 1 disorder acute Bronchiectasis acute Hypercholesteremia acute Hypothyroidism acute Interstitial lung disease ac [facility] Work Phone: evaluation note* Diagnosis Onset Date Resolution Status Bipolar 1 disorder acute Hypercholesteremia acute Hypothyroidism acute Interstitial lung disease [facility] Bipolar 1 disorder acute Bronchiectasis acute Hypercholesteremia acute Hypothyroidism acute Interstitial lung disease ac [facility] Work Phone: evaluation note* Diagnosis [...] neurological symptoms- [facility] Closed nondisplaced fracture of [...] ELECTROENCEPHALOGRAM REC COMA/[place] [address] [address] [place] [id number] [address] [address] Referral ID Status Reason Start Date Expiration Date Visits Requested Visits Authorized [id number] Authorized Auto-Generat ed Referral 03/06/2024 03/06/2025 1 [...] EA ADDL 30 [place] [address] [address] [place] [id number] Referral ID Status Reason Start Date Expiration Date Visits Requested Visits Authorized [id number] Ref Not Required PCP Requested Referral 03/06/2024 06/04/2024 1 3 [facility] for referral (narrative)* Outpatient Procedure (Routine) - Closed Specialty Diagnoses / Procedures Referred By Contac t Referred To Contact [facility] [place] Diagnoses Memory deficit Auditory hallucinations Procedures EPIL EEG ROUTINE ELECTROENCEPHALOGRAM REC COMA/[place] [address] [place] [address] [address] Referral ID Status Reason Start Date Expiration Date V isits Requested Visits Authorized [id number] Closed Auto-Generate d Referral 03/06/2024 03/06/2025 1 1 [facility] for visit Narrative* Outpatient Procedure (Routine) - Closed Specialty Diagnoses / Procedures Referred By Chris cadena Referred To [facility] Diagnoses Memory deficit Auditory hallucinations Procedures EPIL EEG ROUTINE ELECTROENCEPHALOGRAM REC COMA/[place] [address] [place] [address] [facility] [place] [address] [place] [address] Referral ID Status Reason Start Date Expiration Date V isits Requested Visits Authorized [id number] Closed Auto-Generate d Referral 03/06/2024 03/06/2025 1 1 [facility] for visit Narrative* Consultation (Routine) - Authorized Specialty Diagnoses / Procedures Referred By Chris cadena Referred To Contact Occupational Therapy / Physical Therapy Diagnoses Closed nondisplaced fracture of base of fifth metacarpal bone of left hand with routine healing, subsequent encounter Procedures [place] OFFICE/OUTPATIENT NEW HIGH MDM 60 MINUTES Zulema Mackay NP [address] [place] [address] Phone: tel: fax: Zehra Bunch, OT [address] [place] [address] Phone: tel:[phone] fax:[phone] Referral ID Status Reason Start Date Expiration Date Visits Requested Visits Authorized [id number] Authorized Consult and Treat 10/07/2024 04/05/2025 8 8 [facility] for visit Narrative* Consultation (Routine) - Authorized Specialty Diagnoses / Procedures Referred By Chris cadena Referred To Contact Occupational Therapy / Physical Therapy Diagnoses Closed nondisplaced fracture of base of fifth metacarpal bone of left hand with routine healing, subsequent encounter Procedures [place] OFFICE/OUTPATIENT NEW HIGH MDM 60 MINUTES Zulema Mackay NP [address] [place] [address] Phone: tel: fax: Zehra Bunch, OT [address] [place] [address] Phone: tel:[phone] fax:[phone] Referral ID Status Reason Start Date Expiration Date Visits Requested Visits Authorized [id number] Authorized Consult and Treat 10/07/2024 10/01/2025 8 8 [facility] for visit Narrative* Consultation (Routine) - Closed Specialty Diagnoses / Procedures Referred By Chris t Referred To Contact Neurology Diagnoses Numbness and tingling in left hand Procedures [place] OFFICE/OUTPATIENT NEW HIGH MDM 60 MINUTES Zulema Mackay NP fax: Monika Vargas DO [address] [place] [address] Phone: tel: fax: Referral ID Status Reason Start Date Expiration Date V isits Requested Visits Authorized [id number] Closed Specialty Services Required 11/11/2024 05/10/2025 1 [...] 2022 9:18am Hospital Course Note MR#: [id number] [facility] Pt. Name: Emigdio Apodaca Admitted: [...] EA AD[place] 30 [place] [address] [place] [address] Referral ID Status Reason Start Date Expiration Date Visits Requested Visits Authorized [id number] Ref Not Required PCP Requested Referral 06/04/2024 09/02/2024 1 3 Additional Source Comments INFORMATION SOURCE (unrecogn ized section and content) DATE CREATED AUTHOR 04/23/2020 [facility] DATE CREATED AUTHOR AUTHOR'S ORGANIZ ATION 01/07/2023 [facility] DATE CREATED AUTHOR AUTHOR'S ORGANIZ ATION 06/15/2024 [facility] DATE CREATED AUTHOR AUTHOR'S ORGANIZ ATION 09/22/2024 [facility] DATE CREATED AUTHOR AUTHOR'S ORGANIZ ATION 05/07/2025 [facility] DATE CREATED AUTHOR AUTHOR'S ORGANIZ ATION 05/14/2025 [facility] DATE CREATED AUTHOR AUTHOR'S ORGANIZ ATION 05/15/2025 [facility] Care Teams (unrecognized sec tion and [...] Active Rodolfo Harley MD Attending Provider Active Sr. Manager Relationship Specialty Start Date End Date Tony Amaya MD [address] [place] [address] Referring Family Medicine 02/09/24 Sr. Manager Relationship Specialty Start Date End Date Tony Amaya MD [address] [place] [address] Referring Family Medicine 02/09/24 Sr. Manager Relationship Specialty Start Date End Date Tony Amaya MD [address] [place] [address] Referring Family Medicine 02/09/24 Sr. Manager Relationship Specialty Start Date End Date Tony Amaya MD [address] [place] [address] Referring Family Medicine 02/09/24 Sr. Manager Relationship Specialty Start Date End Date Tony Amaya MD [address] [facility] [place] [address] PCP - General Family Medicine 06/13/24 Tony Amaya MD [address] [facility] [place] [address] Referring Family Medicine 02/09/24 Sr. Manager Relationship Specialty Start Date End Date Tony Amaya MD [address] [facility] [place] [address] PCP - General Family Medicine 06/24/24 Sr. Manager Relationship Specialty Start Date End Date Tony Amaya MD [address] [place] [facility] [place] [address] PCP - General Family Medicine 06/24/24 Sr. Manager Relationship Specialty Start Date End Date Tony Amaya MD [address] [place] [facility] [place] [address] PCP - General Family Medicine 06/24/24 Sr. Manager Relationship Specialty Start Date End Date Tony Amaya MD [address] [place] [facility] [place] [address] PCP - General Family Medicine 06/24/24 Sr. Manager Relationship Specialty Start Date End Date Tony Amaya MD [address] [facility] [place] [address] PCP - General Family Medicine 06/24/24 Sr. Manager Relationship Specialty Start Date End Date Tony Amaya MD [address] [facility] [place] [address] PCP - General Family Medicine 06/24/24 Sr. Manager Relationship Specialty Start Date End Date Tony Amaya MD [address] [facility] [place] [address] PCP - General Family Medicine 06/24/24 Sr. Manager Relationship Specialty Start Date End Date Tony Amaya MD [address] [facility] [place] [address] PCP - General Family Medicine 06/24/24 Sr. Manager Relationship Specialty Start Date End Date Tony Amaya MD [address] [facility] [place] [address] PCP - General Family Medicine 06/24/24 Sr. Manager Relationship Specialty Start Date End Date Tony Amaya MD [address] [facility] [place] [address] PCP - General Family Medicine 06/13/24 Tony Amaya MD [address] [facility] [place] [address] Referring Family Medicine 02/09/24 Sr. Manager Relationship Specialty Start Date End Date Tony Amaya MD [address] [place] [facility] [place] [address] PCP - General Family Medicine 06/24/24 Sr. Manager Relationship Specialty Start Date End Date Tony Amaya MD [address] [facility] [place] [address] PCP - General Family Medicine 06/24/24 Sr. Manager Relationship Specialty Start Date End Date Tony Amaya MD [address] [facility] [place] [address] PCP - General Family Medicine 06/24/24 Sr. Manager Relationship Specialty Start Date End Date Tony Amaya MD [address] [facility] [place] [address] PCP - General Family Medicine 06/24/24 Sr. Manager Relationship Specialty Start Date End Date Tony Amaya MD [address] [facility] [place] [address] PCP - General Family Medicine 06/24/24 Sr. Manager Relationship Specialty Start Date End Date Tony Amaya MD [address] [facility] [place], [facility] PCP - General Family Medicine 06/24/24 Sr. Manager Relationship Specialty Start Date End Date Tony Amaya MD [address] [facility] [place], [facility] PCP - General Family Medicine 06/24/24 Sr. Manager Relationship Specialty Start Date End Date Tony Amaya MD [address] [facility] [place], [facility] PCP - General Family Medicine 06/24/24 Sr. Manager Relationship Specialty Start Date End Date Tony Amaya MD [address] [facility] [place] [address] PCP - General Family Medicine 06/24/24 Sr. Manager Relationship Specialty Start Date End Date Tony Amaya MD [address] [facility] [place] [address] PCP - General Family Medicine 06/24/24 Sr. Manager Relationship Specialty Start Date End Date Tony Amaya MD [address] [place] [address] PCP - General Family Medicine 06/24/24 Team Status: Active Member Role Status Chucho Amaya MD Primary Care Provider Active Start: November 14, 2024 Alejandro Maciel MD Attending Provider Active Start: November 14, 2024 Team Status: Inactive Member Role Status Chucho Amaya MD Attending Provider Active Sta rt: November 26, 2024 End: November 26, 2024 Sr. Manager Relationship Specialty Start Date End Date Tony Amaya MD [address] [place] [address] PCP - General Family Medicine 06/24/24 Team [...] Other Provider Active Start: December 02, 2024 Sr. Manager Relationship Specialty Start Date End Date Tony Amaya MD PCP - General Family Medicine 06/24/24 Sr. Manager Relationship Specialty Start Date End Date Tony Amaya MD PCP - General Family Medicine 06/24/24 Sr. Manager Relationship Specialty Start Date End Date Tony Amaya MD PCP - General Family Medicine 06/24/24 Sr. Manager Relationship Specialty Start Date End Date Tony Amaya MD [address] [place] [address] PCP - General Family Medicine 05/02/25 Sr. Manager Relationship Specialty Start Date End Date Tony Amaya MD [address] [place] [address] PCP - General Family [facility] 05/02/25 Goals (unrecognized section and content) Goals [...] or prosecute any alcohol or drug abuse patient.[facility] the event this information is protected by the Federal Confidentiality of Alcohol and Drug Abuse Patient Records regulations: The Federal rules restrict any use of the information to criminally investigate or prosecute any alcohol or drug abuse patient.[facility] the event this information is protected by the Federal Confidentiality of Alcohol and Drug Abuse Patient Records regulations: The Federal rules restrict any use of the information to criminally investigate or prosecute any alcohol or drug abuse patient.[facility] the event this information is protected by the Federal Confidentiality of Alcohol and Drug Abuse Patient Records regulations: The Federal rules restrict any use of the information to criminally investigate or prosecute any alcohol or drug abuse patient.[facility] the event this information is protected by the Federal Confidentiality of Alcohol and Drug Abuse Patient Records regulations: The Federal rules restrict any use of the information to criminally investigate or prosecute any alcohol or drug abuse patient.[facility] the event this information is protected by the Federal Confidentiality of Alcohol and Drug Abuse Patient Records regulations: The Federal rules restrict any use of the information to criminally investigate or prosecute any alcohol or drug abuse patient.[facility] Reason for Visit (unrecogniz ed section [...] ON THE PRIMARY CLINICAL RECORDS. [facility] [employer] [facility]. provides no warranty or guarantee of the accuracy or completeness of information in this document.
[2025-07-14 18:21] VITALS: BP 106/74; PULSE 75; TEMP 37.2; O2SAT 96; BMI 20.5
[2025-07-14 19:03] LABS: SARS-CoV-2 Ag NEGATIVE (NEGATIVE)
--- NOTE | 2025-07-14 19:05 | ED.GENADUL1 ---
HPI HPI - General Adult General Chief complaint: Upper Respiratory Infection Stated complaint: FEVER, FLU SYMPTOMS, NUMBNESS L FACE Time Seen by Provider: 07/14/25 18:25 Source: patient Mode of arrival: walk-in Limitations: no limitations History of Present Illness HPI narrative: Patient is a 59-year-old female with a past medical history of pacemaker and COPD that presents with complaints of cough, runny nose, body aches, and fever. She states her symptoms started on Monday which was 2 days ago, she developed a fever today Tmax 100.8. She denies shortness of breath, chest pain, or sore throat. She denies nausea/vomiting/diarrhea. Related Data Home Medications ?Medication ?Instructions ?Recorded ?Confirmed bupropion HCl 300 mg 24 hr tablet, 300 mg PO DAILY 09/25/23 05/29/25 extended release cholecalciferol (vitamin D3) 50 50 mcg PO DAILY 09/25/23 02/19/25 mcg (2,000 unit) capsule citalopram 20 mg tablet 20 mg PO DAILY 09/25/23 05/29/25 lamotrigine 25 mg tablet 50 mg PO BEDTIME 09/25/23 05/29/25 lansoprazole 30 mg capsule,delayed 30 mg PO DAILY 09/25/23 05/29/25 release levothyroxine 125 mcg tablet 125 mcg PO DAILY 09/25/23 05/29/25 simvastatin 20 mg tablet 20 mg PO QPM 09/25/23 05/29/25 docusate sodium 100 mg capsule 100 mg PO DAILY PRN constipation 12/22/23 05/29/25 (Col-Rite) loratadine 10 mg tablet (Allergy 10 mg PO DAILY 12/22/23 05/29/25 Relief (loratadine)) meclizine 25 mg tablet 25 mg PO QID PRN dizziness 07/19/24 02/19/25 alendronate 70 mg tablet 70 mg PO QWEEK 11/25/24 05/29/25 albuterol sulfate 2.5 mg/3 mL 2.5 mg inhalation Q4H PRN 02/19/25 05/29/25 (0.083 %) solution for nebulization shortness of breath or wheezing Previous Rx's ?Medication ?Instructions ?Recorded albuterol sulfate 90 mcg/actuation 2 inh inhalation Q6H PRN shortness 02/22/25 aerosol inhaler (Ventolin HFA) of breath or wheezing #8.5 grams benzonatate 200 mg capsule 200 mg PO TID PRN cough #30 caps 02/22/25 cefdinir 300 mg capsule 600 mg (2 x 300 mg) PO DAILY #20 02/22/25 caps meclizine 25 mg tablet 25 mg PO QID PRN dizziness #30 tabs 02/22/25 ondansetron 4 mg disintegrating 4 mg PO Q6H PRN nausea and 02/22/25 tablet vomiting #20 tabs prednisone 10 mg tablet 40 mg (4 x 10 mg) PO DAILY #32 tabs 02/22/25 benzonatate 100 mg capsule 100 mg PO Q6H PRN cough #14 caps 07/14/25 Allergies Allergy/AdvReac Type Severity Reaction Status Date / Time codeine Allergy Mild Vomiting Verified 07/14/25 18:21 oxycodone (From Percocet) Allergy Mild Vomiting Verified 07/14/25 18:21 promethazine Allergy Mild Agitated Verified 07/14/25 18:21 Sulfa (Sulfonamide Allergy Mild Vomiting Verified 07/14/25 18:21 Antibiotics) hydromorphone (From Dilaudid) AdvReac Mild Rash Verified 07/14/25 18:21 prochlorperazine (From AdvReac Mild Unknown Verified 07/14/25 18:21 Compazine) Opioid HPI Opioid Management Most Recent Opioid Data: Last Pain Scale 5 05/29/25, 22:16 Last Pain Intensity 2 11/26/24, 07:21 Last ORT Total Score 0 02/20/25, 00:08 Last ORT Risk Category Low Risk 02/20/25, 00:08 Ur Phencyclidine Scrn, (NEGATIVE) Negative 12/01/24, 19:15 Review of Systems ROS Status of ROS 10 or more systems reviewed and unremarkable except as noted in history and below [facility] Medical History (Updated 07/14/25 @ 19:43 by LEONOR Agudelo) Asthma ?J45.909 - Unspecified asthma, uncomplicated (ICD-10) Hypoxia ?R09.02 - Hypoxemia (ICD-10) Acute bronchitis ?J20.9 - Acute bronchitis, unspecified (ICD-10) Acute exacerbation of chronic obstructive pulmonary disease (COPD) ?J44.1 - Chronic obstructive pulmonary disease with (acute) exacerbation (ICD-10) Hypoxemia ?R09.02 - Hypoxemia (ICD-10) ESE (acute kidney injury) ?N17.9 - Acute kidney failure, unspecified (ICD-10) Flu ?J11.1 - Influenza due to unidentified influenza virus with other respiratory manifestations (ICD-10) GERD (gastroesophageal reflux disease) ?K21.9 - Gastro-esophageal reflux disease without esophagitis (ICD-10) Hypercholesterolemia ?E78.00 - Pure hypercholesterolemia, unspecified (ICD-10) Acute respiratory failure with hypoxia ?J96.01 - Acute respiratory failure with hypoxia (ICD-10) Respiratory distress ?R06.03 - Acute respiratory distress (ICD-10) Neutropenia ?D70.9 - Neutropenia, unspecified (ICD-10) Hypotension due to hypovolemia ?E86.1 - Hypovolemia (ICD-10) Gastroenteritis due to COVID-19 virus ?U07.1 - COVID-19 (ICD-10) ?A08.39 - Other viral enteritis (ICD-10) Dehydration ?E86.0 - Dehydration (ICD-10) ESE (acute kidney injury) ?N17.9 - Acute kidney failure, unspecified (ICD-10) Gastroenteritis ?K52.9 - Noninfective gastroenteritis and colitis, unspecified (ICD-10) COVID ?U07.1 - COVID-19 (ICD-10) COVID-19 ?U07.1 - COVID-19 (ICD-10) Effusion of knee joint right ?M25.461 - Effusion, right knee (ICD-10) Contusion of hand, left ?S60.222A - Contusion of left hand, initial encounter (ICD-10) Chest pain ?R07.9 - Chest pain, unspecified (ICD-10) Hypothyroid ?E03.9 - Hypothyroidism, unspecified (ICD-10) Esophagitis ?K20.90 - Esophagitis, unspecified without bleeding (ICD-10) Pancolitis ?K51.00 - Ulcerative (chronic) pancolitis without complications (ICD-10) Pulmonary hypertension ?I27.20 - Pulmonary hypertension, unspecified (ICD-10) Cholecystitis ?K81.9 - Cholecystitis, unspecified (ICD-10) Depression ?F32.A - Depression, unspecified (ICD-10) On home O2 ?Z99.81 - Dependence on supplemental oxygen (ICD-10) Hyperthyroidism ?E05.90 - Thyrotoxicosis, unspecified without thyrotoxic crisis or storm (ICD-10) Scoliosis ?M41.9 - Scoliosis, unspecified (ICD-10) Emphysema lung ?J43.9 - Emphysema, unspecified (ICD-10) Nausea & vomiting ?R11.2 - Nausea with vomiting, unspecified (ICD-10) Pacemaker ?Z95.0 - Presence of cardiac pacemaker (ICD-10) COPD (chronic obstructive pulmonary disease) ?J44.9 - Chronic obstructive pulmonary disease, unspecified (ICD-10) Surgical History History of tonsillectomy ?Z90.89 - Acquired absence of other organs (ICD-10) H/O right wrist surgery ?Z98.890 - Other specified postprocedural states (ICD-10) H/O colectomy ?Z90.49 - Acquired absence of other specified parts of digestive tract (ICD-10) Family History Mother Family history of COPD (chronic obstructive pulmonary disease) Grandmother Family history of cancer Sister Family history of diabetes mellitus Father Family history of myocardial infarction Social History (Updated 12/27/23 @ 23:45 by Meghana Lo) Within the past year, how often did you have a drink containing alcohol: never Within the past year, how often did you have six or more drinks on one occasion: never Score interpretation: A score less than 3 is consistent with normal alcohol consumption. 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 Known occupational exposures/hazards: No Highest level of school completed/degree received: 10th grade Do you want help with school or training: No Are you now , , , , never or living with a partner: In a typical week, how many times do you talk on the telephone with family, friends, or neighbors: 3 or more times per week How often do you get together with friends or relatives: 3 or more times per week How often do you attend congregational or mormon services: 4 or more times per year Do you belong to any clubs or organizations such as congregational groups unions, fraternal or athletic groups, or school groups: yes Total score: 3 Score interpretation: A score of greater than or equal to 2 indicates the lowest level of social isolation. Little interest or pleasure in doing things: not at all Feeling down, depressed, or hopeless: not at all Feel stressed/tense/nervous/anxious/difficulty sleeping: to some extent Life stressors: unknown source of stress Due to disability, difficulty making decisions: No Do you think of yourself as: bisexual Gender Identity: female Exam Narrative Exam Narrative: General: No distress, age-appropriate Skin: Warm, dry, no pallor. No rash. Head: Normocephalic, atraumatic. Neck: Supple, non-tender. Eye: Pupils are equal, round and EOMI. No scleral icterus. Ears, Nose, Mouth, and Throat: No nasal mucosal hypertrophy. Oral mucosa is moist, no posterior oropharynx erythema, uvula is mid-line Cardiovascular: Regular Rate and Rhythm without murmur, gallop or rub. Respiratory: No accessory muscle use or respiratory distress. Lungs are clear to auscultation, no wheezing, rales or rhonchi Chest Wall: no tenderness Back: No midline thoracic or lumbar vertebral tenderness. Musculoskeletal: Full ROM of all extremities, no calf or popliteal tenderness GI: Abdomen is soft, non-distended, non tender to palpation. No masses appreciated. No rebound, guarding, or rigidity noted. Neurological: A&O x4. No cranial nerve dysfunction observed. No truncal ataxia. Moves all extremities. Sensation intact. Psychiatric: Cooperative and interactive. Normal mood and affect. Constitutional Vital Signs, click to edit/add: Last Vital Signs Temp 99 F 07/14/25 18:21 Pulse 75 07/14/25 18:21 Resp 20 07/14/25 18:21 BP 106/74 07/14/25 18:21 Pulse Ox 96 07/14/25 18:21 O2 Del Method Room Air 07/14/25 18:21 Course Vital Signs Vital signs: Vital Signs Temperature 99 F 07/14/25 18:21 Pulse Rate 75 07/14/25 18:21 Respiratory Rate 20 07/14/25 18:21 Blood Pressure 106/74 07/14/25 18:21 Pulse Oximetry 96 07/14/25 18:21 Oxygen Delivery Method Room Air 07/14/25 18:21 Temperature 99 F 07/14/25 18:21 Pulse Rate 75 07/14/25 18:21 Respiratory Rate 20 07/14/25 18:21 Blood Pressure 106/74 07/14/25 18:21 Pulse Oximetry 96 07/14/25 18:21 Oxygen Delivery Method Room Air 07/14/25 18:21 Medical Decision Making MDM Narrative Medical decision making narrative: This is a 59-year-old female that presented to the emergency department with complaints of fever, cough, runny nose, and body aches for the past 2 days. Her fever started today, she took her temperature at home Tmax 100.8. She then took Tylenol prior to coming here. She has been taking DayQuil. On arrival patient is in no distress, vitals are hemodynamically stable. Nontoxic-appearing. She is open for overall at 99 ?F. She has 96% O2 saturations on room air. Chest x-ray, COVID-19, influenza A/B ordered. 1 view chest x-ray reviewed and negative for acute cardiopulmonary disease. Pacemaker and leads in place. No pneumothorax, no effusion, no consolidations. COVID-19, influenza A/B. I discussed results with patient and she does have albuterol inhaler at home if needed for wheezing or shortness of breath. She is unable to take liquid medications and I am going to discharge her with prescription for Tessalon Perles as needed for cough. Vital signs remained stable while in the emergency department. Return precautions were discussed with her and she was discharged in stable condition with plan for follow-up with her PCP. Differential Diagnosis Differential Diagnosis: COVID-19, influenza A/B, pneumonia Lab Data Lab results reviewed: Yes I reviewed the patient's lab results Labs: Lab Results 07/14/25 Range/Units 18:35 Influenza Type A Ag Negative Influenza Type B Ag Negative SARS-CoV-2 Ag (CV2AG) Negative (NEGATIVE) Imaging Data Chest x-ray: Attestation: I have reviewed the pertinent imaging results. Radiologist's impression: ITS Impressions Chest X-Ray 07/14/25 19:06 IMPRESSION: No acute cardiopulmonary pathology. Chronic findings are redemonstrated as above. Impression dictated by: Edmond Canada M.D. 07/14/2025 7:45 PM Dictation Location[facility] Electronically authenticated by: [id number] Y Date: 07/14/2025 19:45 Discharge Plan Discharge Chief Complaint: Upper Respiratory Infection Clinical Impression: Upper respiratory infection Patient Disposition: Home, Self-Care Time of Disposition Decision: 19:43 Condition: Good Mode of Transportation: Private Vehicle Prescriptions / Home Meds: New benzonatate 100 mg capsule 100 mg PO Q6H PRN (Reason: cough) Qty: 14 0RF No Action meclizine 25 mg tablet 25 mg PO QID PRN (Reason: dizziness) alendronate 70 mg tablet 70 mg PO QWEEK albuterol sulfate 2.5 mg /3 mL (0.083 %) solution for nebulization 2.5 mg inhalation Q4H PRN (Reason: shortness of breath or wheezing) prednisone 10 mg tablet 40 mg PO DAILY Qty: 32 0RF Rx Instructions: 4/day for 3 days, 3/day for 3 days, 2/day for 3 days, 1/day for 3 days, 1/2 /day for 4 days cefdinir 300 mg capsule 600 mg PO DAILY Qty: 20 0RF benzonatate 200 mg capsule 200 mg PO TID PRN (Reason: cough) Qty: 30 0RF ondansetron 4 mg tablet,disintegrating 4 mg PO Q6H PRN (Reason: nausea and vomiting) Qty: 20 0RF meclizine 25 mg tablet 25 mg PO QID PRN (Reason: dizziness) Qty: 30 0RF albuterol sulfate [Ventolin HFA] 90 mcg/actuation HFA aerosol inhaler 2 inh inhalation Q6H PRN (Reason: shortness of breath or wheezing) Qty: 8.5 11RF bupropion HCl 300 mg tablet extended release 24 hr 300 mg PO DAILY cholecalciferol (vitamin D3) 50 mcg (2,000 unit) capsule 50 mcg PO DAILY citalopram 20 mg tablet 20 mg PO DAILY lamotrigine 25 mg tablet 50 mg PO BEDTIME lansoprazole 30 mg capsule,delayed release(DR/EC) 30 mg PO DAILY levothyroxine 125 mcg tablet 125 mcg PO DAILY simvastatin 20 mg tablet 20 mg PO QPM loratadine [Allergy Relief (loratadine)] 10 mg tablet 10 mg PO DAILY docusate sodium [Col-Rite] 100 mg capsule 100 mg PO DAILY PRN (Reason: constipation) Print Language: Estonian Instructions: Upper Respiratory Infection (ED) Referrals: Paulo Turner MD [Primary Care Provider, Family Practice] - 1 week
--- NOTE | 2025-07-14 19:06 | XR_ITS ---
The [address] [address] Patient Name: EMIGDIO ELI MRN: [id number] date: 1965 Sex: F Assigned Patient Location: ED.MAIN Current Patient Location: ED.MAIN Accession/Order Number: [id number] Exam Date: 07/14/2025 19:21 Report Date: 07/14/2025 19:45 At the request of: OLE GALVEZ Procedure: XR chest 1V XR chest 1V 07/14/2025 7:24 PM SIGNS AND SYMPTOMS: ^Cough, SOB PROTOCOL: Frontal radiograph of the chest COMPARISON: 02/19/2025 FINDINGS: The trachea is midline. There is a dual lead pacer on the left. The heart and mediastinal structures are within normal limits. Pleural based scarring laterally on the right. The lung parenchyma is clear. There is a dextro convex curvature of the thoracic spine. Degenerative changes are noted in the shoulders. XR/XR chest 1V IMPRESSION: No acute cardiopulmonary pathology. Chronic findings are redemonstrated as above. Impression dictated by: Edmond Canada M.D. 07/14/2025 7:45 PM Dictation Location: [place] [address] Electronically authenticated by: [id number] Y Date: 07/14/2025 19:45
== END 2025-07-14 19:58 | disposition home or self-care (01) ==
PROVIDERS: Physician Assistant; Emergency Provider Emergency Medicine; PCP Family Medicine
DX: J06.9 Acute upper respiratory infection, unspecified (principal); R05.9 Cough, unspecified; J31.0 Chronic rhinitis; R52 Pain, unspecified
CPT/HCPCS: 71045; 87804; 87811; 99285

== ENCOUNTER 2025-07-20 22:18 | Inpatient (IN) | payer OTHER, SELFPAY ==
--- OUTSIDE RECORDS SUMMARY | 2025-04-15 04:00 | XMS_ITS ---
Author Organization [facility] in [place] Address [address] [place] [address] Care Team Providers Care Tufting Machine Fixer Name Role Phone Zion Turner Primary Care Provider [phone] REASON FOR VISIT surgery clearance, meds Encounters Encounter Location Date Provider Diagnosis [facility] [address] [place] [address] 04/15/2025 Zion Turner Plan Of Treatment No Information Progress Notes * Martha APODACA SDOB:[birth year] (59 yo F)Acc No.[id number]:04/15/2025 UNLOCKED PROGRESS NOTE Progress Note Patient: Martha LYLES :?Paulo Turner (NGA), MDDOB:1965???Age: 59 Y???Sex:FemaleDate:04/15/2025Phone:[phone]:[address] [place], [place]-[address] Subjective: * Chief Complaints: * 1 . Surgery clearance, meds. * Medical History: Objective: * Vitals: Assessment: Plan: * Treatment: * * Electronic signature of Zion Turner MD, [id number] on 07/22/2025 at 02:21 PM EDT Sign off status: PendingVisit Status:?N/S N/C (No Show/No Charge) * Provider: Andrea Turner MD (TTC) Date: 0 04/15/2025 Generated for Printing/Faxing/eTransmitting on:?07/22/2025 02:21 PM EDT
--- OUTSIDE RECORDS SUMMARY | 2025-04-16 06:15 | XMS_ITS ---
Author Organization [facility] in [place] Address [address] [place] [address] Care Team Providers Care Forming Operator Name Role Phone Zion Turner Primary Care Provider REASON FOR VISIT surgery clearance Encounters Encounter Location Date Provider Diagnosis [facility] [address] [place] [address] 04/16/2025 Zion Turner Plan Of Treatment No Information Progress Notes * Martha APODACA SDOB:[birth year] (59 yo F)Acc No.[id number]:04/16/2025 UNLOCKED PROGRESS NOTE Progress Note Patient: Martha LYLES :?Paulo ISAACS), MDDOB:1965???Age: 59 Y???Sex:FemaleDate:04/16/2025Phone:[phone]:[address] [place] [id number] Subjective: * Chief Complaints: * 1 . Surgery clearance. * Medical History: Objective: * Vitals: Assessment: Plan: * Treatment: * * Electronic signature of Zion Turner MD, [id number] on 07/22/2025 at 02:23 PM EDT Sign off status: PendingVisit Status:?CANCPHONE (Cancelled Phone) * Provider: Andrea Turner MD (TTC) Date: 0 04/16/2025 Generated for Printing/Faxing/eTransmitting on:?07/22/2025 02:23 PM EDT
--- OUTSIDE RECORDS SUMMARY | 2025-06-17 09:00 | XMS_ITS ---
Author Organization [facility] [place] Address [address] [place] [address] Care Team Providers Care Detention Worker Name Role Phone Zion Turner Primary Care Provider Jaspersa Thomas Unavailable [phone] REASON FOR VISIT 6m F/U - Bronchiectasis Encounters Encounter Location Date Provider Diagnosis [facility] [address] [place] [address] 06/17/2025 Thomas Izquierdo Plan Of Treatment No Information Progress Notes * PAULIE Martha SDOB:[birth year] (59 yo F)Acc No.[id number]:06/17/2025 UNLOCKED PROGRESS NOTE Follow Up Patient: Martha LYLES :?Thomas Izquierdo DODOB:1965???Age:59 Y ???Sex:FemaleDate:06/17/2025Phone:[phone]:[address] [place], [place]-[address]Pcp:iZon Turner Subjective: * Chief Complaints: * 1 . 6m F/U - Bronchiectasis. * Medical History: Objective: * Vitals: Assessment: Plan: * Treatment: * * Electronic signature of Thomas Izquierdo DO on 07/22/2025 at 02:22 PM EDTSign off status: PendingVisit Status:?OFF CANC (OFFICE CANCEL) * Provider: Julian Izquierdo DO Date: 0 06/17/2025 Generated for Printing/Faxing/eTransmitting on:?07/22/2025 02:22 PM EDT
--- OUTSIDE RECORDS SUMMARY | 2025-07-14 12:30 | XMS_ITS ---
Author Organization [facility] [place] Address [address] [place] [address] Care Team Providers Care Front Tender Name Role Phone Zion Turner Primary Care Provider [phone] REASON FOR VISIT congestion Encounters Encounter Location Date Provider Diagnosis [facility] [address] [place] [address] 07/14/2025 Zion Turner Plan Of Treatment No Information Progress Notes * Martha APODACA SDOB:[birth year] (59 yo F)Acc No.[id number]:07/14/2025 UNLOCKED PROGRESS NOTE Progress Note Patient: Martha LYLES :?Pauol ISAACS), MDDOB:1965???Age: 59 Y???Sex:FemaleDate:07/14/2025Phone:[phone]:[address] [place] [address] Subjective: * Chief Complaints: * 1 . Congestion. * Medical History: Objective: * Vitals: Assessment: Plan: * Treatment: * * Electronic signature of Zion Turner MD, [id number] on 07/22/2025 at 02:24 PM EDT Sign off status: PendingVisit Status:?CANC (Cancelled) * Provider: Andrea Turner MD (TTC) Date: 1 Generated for Printing/Faxing/eTransmitting on:?07/22/2025 02:24 PM EDT
--- OUTSIDE RECORDS SUMMARY | 2025-07-15 14:46 | XMS_ITS | Encounter Summary ---
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 heroin, hallucinogens, inhalants, etc.) in the past12 months?No07/15/2025 8:45 PM Kenna Jane RNHave you used any prescription drugs other than prescribed in the past 12 months?No07/15/2025 8:45 PM Kenna Jane RN * Risk of SuicideAnswerDate of AssessmentAuthorNo Risk07/15/2025 2:31 PM Brandee Israel RN * Modified Malnutrition Screening Tool (MST)QuestionAnswerDate of Assessment AuthorHave you recently lost weight without trying?Yes07/15/2025 8:47 PM Kenna Hernandez RNUnplanned Weight loss over:Wdqulp9407/15/2025 8:47 PM Kenna Jane RNWeight Loss QlrgkFbxnpi65/14/2025 8:47 PM Kenna Jane RNHave you been eating poorly because of a decreased appetite? 8:47 PM Kenna Hernandez RNOn home tube feeding or TPN? 8:47 PM Kenna Jane RNMalnutrition [id number] 8:47 PM Kenna Jane RNDoes patient have a stage 2-4 pressure ulcer? 8:47 PM Kenna Jane RN documented as of this encounter Mental Status * Blanche Coma ScaleQuestionAnswerEntry DateAuthorBest Eye ResponseSpontaneous 07/17/2025 8:00 AM Janeth Castaneda RNBe Verbal LcktwfjcWfwuefdj07/16/2025 8:00 AM EDTSutton, Janeth, RNBest Motor ResponseFollows /16/2025 8:00 AM Janeth Castaneda RN * [place]ell Coma Scale ScoreAnswerEntry MhnaPdoauc7755/16/2025 8:00 AM Janeth Castaneda RN documented in this encounter Discharge Summaries * Kenneth Chambers MD - 07/17/2025 3:17 PM EDT Images from the original note were not included. Hospital Medicine Discharge Summary Final Discharge Diagnosis: COPD exacerbation History of COPD / centrilobular emphysema Admission Diagnosis: COPD exacerbation ([facility]) [J44.1] Pulmonary hypertension Heart block s/p biotronic dual-chamber PPM Bipolar disorder Depression Hospital course: Martha Apodaca is an 59 y.o. female who came from home with past medical history of COPD on oxygenas needed, complete AV block s/p PPM, bipolar depression, hypothyroidism, hyperlipidemia presents to the emergency department with a chief complaint of a cough. Patient reports that for the last weekshe has been short of breath. She reports a cough with associated yellow sputum production. She reports lightheadedness, dizziness, fevers, chills, nausea, vomiting. States that she took her inhalersat home without relief. Denies being around anyone that smokes. In the emergency department, patient was found to have a blood pressure of 107/65, heart rate 86, temp 98.4 and 89% on room air. 2 L of oxygen was placed with an improvement in oxygenation to 93%. Labs were completed which are grossly unremarkable. CXR was completed showing chronic hyperinflation and emphysematous changes with no focal consolidation to support pneumonia. The patient was admitted with her history of COPD and centrilobular emphysema. She has had multipleadmissions in the past for COPD exacerbation. Her last PFTs in 2020 showed a moderate restrictive pattern. She was weaned off supplemental O2 a day before discharge. She was started on Azithromycin 500 mg daily for 3 days and Prednisone 40 mg daily for 5 days. She was discharged with 2 days of prednisone to complete. Outpatient PFTs were ordered. Care with pulmonology outpatient was established with an appointment in August. For the patient's pulmonary hypertension, a TTE from 12/26/24 showed normal biventricular function (EF 60-65%) with mild to moderate TR, mild MR, and mildly elevated right-sided pressures (RVSP of 37mmg Hg), and no pericardial effusion. This did not warrant any follow-up on the pulmonary hypertension. The patient also had a history of heart block s/p biotronic dual-chamber PPM [place] [address] Weaver, Bipolar Disorder, and Depression. Her Lamictal, Celexa, and Wellbutrin were resumed. She was deemed stable for discharge on 07/17/2025. Surgical, Invasive or Diagnostic Procedures Done During Admission: Chest x-ray Consultations During Admission: None Charles Turner MD, Martha Shelly is advised to follow up with you within 1-2 weeks. Items to follow up in ambulatory setting: PFTs with Pulmonology Follow-up with: Pulmonary Scheduled appointments: Future Appointments Date Time Provider Department Center 2025 1:00 PM PFT [id number] PFT [facility] 09/08/2025 2:00 PM Syed Palafox MD PULM [facility] Your medication list START taking these medications Instructions Last Dose Given Next Dose Due budesonide-formoteroL 80-4.5 mcg/actuation inhaler Commonly known as: Symbicort Inhale 2 puffs in the morning and at bedtime. Rinse mouth with water after use to reduce aftertasteand incidence of candidiasis. Do not swallow. predniSONE 20 mg tablet Commonly known as: Deltasone Start taking on: July 18, 2025 Take 2 tablets (40 mg) by mouth in the morning for 2 doses. CONTINUE taking these medications Instructions Last Dose Given Next Dose Due albuterol 90 mcg/actuation inhaler buPROPion XL 300 mg 24 hr tablet Commonly known as: Wellbutrin XL cholecalciferol (vitamin D3) 50 mcg (2,000 unit) capsule citalopram 20 mg tablet Commonly known as: CeleXA Fosamax 70 mg tablet Generic drug: alendronate lamoTRIgine 25 mg tablet Commonly known as: LaMICtal lansoprazole [address] capsule Commonly known as: Prevacid levothyroxine 125 mcg tablet Commonly known as: Synthroid, Levoxyl loratadine 10 mg tablet Commonly known as: Claritin meclizine 25 mg tablet Commonly known as: Antivert simvastatin 20 mg tablet Commonly known as: Zocor STOP taking these medications ondansetron ODT 4 mg disintegrating tablet Commonly known as: Zofran-ODT Where to Get Your Medications These medications were sent to [facility] - [place], [place] - [address] [place] [address], [facility] [address] budesonide-formoteroL 80-4.5 mcg/actuation inhaler predniSONE 20 mg tablet Martha Bravo is allergic to compazine [prochlorperazine] and sulfa (sulfonamide antibiotics). Disposition: Home or Self Care () Discharge Condition: Stable Code Status: Full Code Diagnostic Results Hematology: Results from last 7 days Lab Units 07/17/2555807/16/258 WBC AUTO 10*3/uL 5.57 3.58* HEMOGLOBIN g/dL 11.6* 13.2 HEMATOCRIT % 36.5 42.3 MCV fL 86.9 87.9 PLATELETS AUTO 10*3/uL 215 228 Chemistry: Results from last 7 days Lab Units 07/17/2559 07/16/258 07/15/25 1521 SODIUM mmol/L 140 136 138 POTASSIUM mmol/L 3.4* 4.0 3.8 CHLORIDE mmol/L 105 104 105 CO2 mmol/L 27 26 29 BUN mg/dL 20 10 10 CREATININE mg/dL 0.73 0.80 0.83 GLUCOSE mg/dL 106* 165* 105* MAGNESIUM mg/dL 2.2 -- 2.2 CALCIUM mg/dL 8.6 8.7 8.3* No lab exists for component: AFIO2 , APHT , APCOT , APOT , ATCO2 , CK , ALB , IBILI Test Results Pending At Discharge: Diet at the time of discharge: regular diet Nutrition Screen Activity: Patient currently has no discharge activity orders Objective Blood pressure 110/67, pulse 90, temperature 37.4 ??C (99.3 ??F), temperature source Oral, resp. rate 16, height 1.524 m (5'), weight 47.9 kg (105 lb 9.6 oz), SpO2 95%. General: Alert and oriented x3. Cardiology: Normal rate, regular rhythm. Lungs: Clear to auscultation, no wheezes, rales or rhonchi, symmetric air entry. Abdomen: Soft, non tender, non distended. Total time for discharge - review of data, exam, discussion with providers and care-team, med-rec and orders, arranging follow up, counseling of patient and/or family and documentation was 45 minutes. Signed Kenneth Chambers MD [facility] Medicine 07/17/2025 3:17 PM CC: MD Yue Cosigned by Eyal Brooke MD at 07/18/2025 2:51 PM EDT Associated attestation - Eyal Brooke MD - 07/18/2025 2:51 PM EDT By using the attestations below, the signing clinician agrees that I have read and verify that thedocumentation has been personally reviewed by me and ensure that the documentation accurately reflects the encounter. GC: I personally saw this patient on the day of the encounter, performed the schrader portion(s) of the service and participated in the management and confirm Kenneth Chambers MD's documentation. Please note there may be an additional personal documentation from me. Eyal Brooke MD documented in this encounter Discharge Instructions * Discharge Instructions* Kenneth Chambers MD - 07/17/2025 3:49 PM EDT You were admitted to the [facility] for COPD exacerbation. Thank you for letting us participate in your care. Medications Start taking: Prednisone 20 mg, 2 tablets in the morning. Do this on 07/18/25 and 07/19/25 Symbicort 80-4.5 mcg inhaler. Inhale 2 puffs in the morning and at bedtime. Rinse your mouth with water after to reduce the aftertaste and candidiasis. DO NOT SWALLOW. Stop taking: Zofran 4 mg. Please continue all of your other home medications that were previously prescribed. Follow Ups Please follow-up with your primary care doctor as soon as possible Please follow-up with pulmonology in August. They should do pulmonary function tests. Return Precautions If you become short of breath, have chest pain, or have severe symptoms, please come back to the emergency department for further evaluation. * Discharge Instr - Activity* Marlene Cannon LPN - 07/16/2025 12:34 PM EDT Activity as tolerated Fall risk precautions * Discharge Instr - Diet* Marlene Cannon LPN - 07/16/2025 12:34 PM EDT Regular diet, thin liquids * Discharge Instr - Other Orders* Marlene Cannon LPN - 07/16/2025 12:35 PM EDT documented in this encounter Medications at Time of Discharge MedicationSigDispense QuantityRefillsLast FilledStart DateEnd Date albuterol 90 mcg/actuation inhaler every 4 (four) hours. buPROPion XL (Wellbutrin XL) 300 mg 24 hr tablet 1 (one) time each day at the same time. cholecalciferol, vitamin D3, 50 mcg (2,000 unit) capsule 1 capsule 1 (one) time each day at the same time. citalopram (CeleXA) 20 mg tablet Take 20 mg by mouth in the morning. Fosamax 70 mg tablet Pt takes on [id number]/26/2024 lamoTRIgine (LaMICtal) 25 mg tablet Take 2 tablets by mouth in the morning.02/21/2023 lansoprazole (Prevacid) [address] capsule 1 (one) time each day at the same time. levothyroxine (Synthroid, Levoxyl) 125 mcg tablet Take 125 mcg by mouth in the morning.02/27/2023 loratadine (Claritin) 10 mg tablet Take 10 mg by mouth in the morning.02/27/2023 meclizine (Antivert) 25 mg tablet Take 25 mg by mouth if needed in the morning, at noon, in the evening, and at bedtime. simvastatin (Zocor) 20 mg tablet Take 20 mg by mouth at bedtime.02/27/2023 budesonide-formoteroL (Symbicort) 80-4.5 mcg/actuation inhaler Indications:COPD exacerbation (CMS/HCC)Inhale 2 puffs in the morning and at bedtime. Rinse mouth with water after use to reduce aftertasteand incidence of candidiasis. Do not swallow. 1 each predniSONE (Deltasone) 20 mg tablet Indications:COPD exacerbation (CMS/HCC)Take 2 tablets (40 mg) by mouth in the morning for 2 doses. 4 tablet /documented as of this encounter Progress Notes * Johnny Harris, POTATO PEELER - 07/17/2025 8:17 AM EDT Respiratory Progress Note Patient Name: Shelly Apodaca : 1965 Today's Date: 07/17/2025 No Chest X-ray results found for the past 24 hours The findings from the last RT Protocol Assessment were as follows: Bronchodilator Assessment Grid RR: Less than 20 (Level 1) Dyspnea: Periodic SOB Breath Sounds: Diminished and/or faint wheezes Resp History: Positive risk factors* Oxygen to keep SpO2 >/= 92%: Room air or baseline O2 Peak Flow: N/A Level: Level 2 Aerosolized bronchodilator medication orders and frequency have been revised according to the Respiratory Care Clinical Practice Guidelines. Patient to remain on home therapy: As at home reconcile order with home meds if pulmonary status isstable. Level 1: Every 4 hours PRN for wheezing via nebulizer. Level 2: TID daily and Q4 PRN for wheezing. Level 3: QID and Q4 PRN as needed for wheezing. Level 4: Every 4 hours and as needed for wheezing. Level 5: Stat nebulizer time one and contact prescriber for frequency change. Note - The frequency level of therapy will not be lower than the frequency of home therapy as listed on the medication reconciliation record unless specifically ordered by the prescriber. Identify care plan and goals of therapy and perform ongoing clinical assessment to determine appropriateness, benefit, and improvement during the course of therapy. Patient will be re-evaluated every24 hours. Johnny Harris RRT 07/17/2025 * Shen Mejia MD - 07/16/2025 12:37 PM EDT Images from the original note were not included. [id number] Daily Progress Note - 07/16/2025 12:37 PM; Room: [address] [place] [address] Admission: 07/15/2025 2:46 PM; Length of stay: 1 days Code Status: Full Code Discharge Destination: home Discharge planning: TBD Overview Patient is seen for evaluation and management of shortness of breath. Subjective Patient was seen and examined at bedside. She was receiving a breathing treatment this morning. Patient reports she is typically on room at home and has not been on home oxygen for a while. She recalls second hand smoking from both her parents who smoked two packs a day. States she has been hospitalized every 6 months of COPD exacerbation. She uses albuterol inhaler twice a day. Patient has not seen a cake icer and packer for a while and would like to establish care with a new cake icer and packer. She reports shortness of breath, cough, and yellow sputum production. She denies other symptoms including fevers, chills, nausea, vomiting, or diarrhea. Physical Exam Visit Vitals BP 110/65 Pulse 88 Temp 36.4 ??C (97.5 ??F) Resp 18 No intake or output data in the 24 hours ending 07/16/25 1237 Physical Exam Constitutional: Appearance: Normal appearance. Eyes: Extraocular Movements: Extraocular movements intact. Conjunctiva/sclera: Conjunctivae normal. Cardiovascular: Rate and Rhythm: Normal rate and regular rhythm. Pulses: Normal pulses. Pulmonary: Breath sounds: Wheezing present. No decreased breath sounds or rales. Abdominal: General: Abdomen is flat. There is no distension. Palpations: Abdomen is soft. Tenderness: There is no abdominal tenderness. Musculoskeletal: Right lower leg: No edema. Left lower leg: No edema. Neurological: Mental Status: She is alert and oriented to person, place, and time. Estimated body mass index is 20.18 kg/m?? as calculated from the following: Height as of this encounter: 1.524 m (5'). Weight as of this encounter: 46.9 kg (103 lb 5.3 oz). Active Inpatient Problems Principal Problem: COPD exacerbation ([facility]) Active Problems: Other hyperlipidemia Acute hypoxic respiratory failure ([facility]) Complete AV block ([facility]) Bipolar depression ([facility]) Acquired hypothyroidism Assessment and Plan COPD exacerbation History of COPD / centrilobular emphysema - Patient presented 1x week history of cough, shortness of breath, and increased sputum production - She notes multiple admissions for COPD exacerbation - Last PFT 2020 moderate restrictive pattern - Supplemental oxygen weaned off this morning - Continue Azithromycin 500 mg tablets daily for 3 days - Continue Prednisone 40 mg tablets daily for 5 days - Outpatient PFTs ordered - Establish care with pulmonology outpatient Pulmonary hypertension - Patient has dyspnea on exertion - TTE 12/26/24 showed normal biventricular function (LVEF 60-65%), mild to moderate TR, mild MR, mildly elevated right-sided pressures (RVSP 37 mmHg), and no pericardial effusion Heart block s/p biotronic dual-chamber PPM - [place] [address] Weaver Bipolar disorder Depression - resumed Lamictal, Celexa, and Wellbutrin Nutrition Screen VTE Prophylaxis: Lovenox Scheduled Meds azithromycin, 500 mg, oral, Daily buPROPion XL, 300 mg, oral, Daily cetirizine, 10 mg, oral, Daily cholecalciferol, 2,000 Units, oral, Daily citalopram, 20 mg, oral, Daily enoxaparin, 40 mg, subcutaneous, Daily ipratropium-albuteroL, 3 mL, nebulization, q6h while awake lamoTRIgine, 50 mg, oral, Daily lansoprazole, 30 mg, oral, Daily before breakfast levothyroxine, 125 mcg, oral, Daily Oxygen Therapy, , inhalation, Continuous predniSONE, 40 mg, oral, Daily simvastatin, 20 mg, oral, Nightly Pertinent Investigations Hematology: Results from last 7 days Lab Units 07/16/25 0348 07/15/25 1521 WBC AUTO 10*3/uL 3.58* 4.01 HEMOGLOBIN g/dL 13.2 12.9 HEMATOCRIT % 42.3 39.9 MCV fL 87.9 85.3 PLATELETS AUTO 10*3/uL 228 235 Chemistry: Results from last 7 days Lab Units 07/16/25 0348 07/15/25 1521 SODIUM mmol/L 136 138 POTASSIUM mmol/L 4.0 3.8 CHLORIDE mmol/L 104 105 CO2 mmol/L 26 29 BUN mg/dL 10 10 CREATININE mg/dL 0.80 0.83 GLUCOSE mg/dL 165* 105* MAGNESIUM mg/dL -- 2.2 CALCIUM mg/dL 8.7 8.3* No lab exists for component: AFIO2 , APHT , APCOT , APOT , ATCO2 , CK , ALB , IBILI Historical Values: (Includes values prior to this admission) Lab Results Component Value Date TSH 0.01 (L) 01/02/2024 FREET4 1.66 01/02/2024 Lab Results Component Value Date [id number] 148 (L) 01/03/2024 Imaging XR chest 2 views Narrative: XR CHEST 2 VIEWS 07/15/2025 3:16 PM CLINICAL INDICATIONS: Pneumonia versus COPD exacerbation and shortness of breath COMPARISON: 02/20/2024 FINDINGS: Cardiac size is within normal range. Left subclavicular pacer leads are grossly intact. Lungs are grossly clear with moderate hyperinflation. There is no focal consolidation, pleural effusion or pneumothorax Impression: Chronic hyperinflation and emphysematous changes with no focal consolidation to support pneumonia. Electronically signed: Sena Yee. Discharge Planning Discharge Planning Living Arrangements: Children (Lives at home w/ son) Support Systems: Parent (Mother (Ana)) Type of Residence: Private residence Post Acute Services: None Patient's goal for discharge: Goal is to discharge back home with son Does the patient need discharge transport arranged?: No Signed Shen Mejia MD Internal Medicine Resident, PGY1 [facility] 07/16/2025 12:37 PM Cosigned by Eyal Brooke MD at 07/16/2025 1:29 PM EDT Associated attestation - Eyal Brooke MD - 07/16/2025 1:29 PM EDT By using the attestations below, the signing clinician agrees that I have read and verify that thedocumentation has been personally reviewed by me and ensure that the documentation accurately reflects the encounter. GC: I personally saw this patient on the day of the encounter, performed the schrader portion(s) of the service and participated in the management and confirm Shen Mejia MD's documentation. Please note there may be an additional personal documentation from me. Additional Findings : Patient stated that her cake icer and packer retired and she had not seen a cake icer and packer for a long time. Not on oxygen at home Continue prednisone, azithromycin, DuoNebs, reestablish care with pulmonology outpatient. Possible DC tomorrow Eyal Brooke MD associate professor of radiology, Division of Internal Medicine [facility] * Beti Mario, EVELIO - 07/16/2025 8:53 AM EDT Respiratory Progress Note Patient Name: Shelly Apodaca : 1965 Today's Date: 07/16/2025 XR chest 2 views Result Date: 07/15/2025 Chronic hyperinflation and emphysematous changes with no focal consolidation to support pneumonia. Electronically signed: Sena Yee. The findings from the last RT Protocol Assessment were as follows: Bronchodilator Assessment Grid RR: Less than 20 (Level 1) Dyspnea: Periodic SOB Breath Sounds: Diminished and/or faint wheezes Resp History: Positive risk factors* Oxygen to keep SpO2 >/= 92%: 1-3 lpm 25%-35% Peak Flow: N/A Level: Level 2 Aerosolized bronchodilator medication orders and frequency have been revised according to the Respiratory Care Clinical Practice Guidelines. Patient to remain on home therapy: As at home reconcile order with home meds if pulmonary status isstable. Level 1: Every 4 hours PRN for wheezing via nebulizer. Level 2: TID daily and Q4 PRN for wheezing. Level 3: QID and Q4 PRN as needed for wheezing. Level 4: Every 4 hours and as needed for wheezing. Level 5: Stat nebulizer time one and contact prescriber for frequency change. Note - The frequency level of therapy will not be lower than the frequency of home therapy as listed on the medication reconciliation record unless specifically ordered by the prescriber. Identify care plan and goals of therapy and perform ongoing clinical assessment to determine appropriateness, benefit, and improvement during the course of therapy. Patient will be re-evaluated every24 hours. Beti Martin RRT 07/16/2025 documented in this encounter H&P Notes * Dona Rodriguez CNP - 07/15/2025 7:07 PM EDT Images from the original note were not included. Hospital Medicine History and Physical 07/15/2025 7:07 PM THE HOSPITALIST TEAM PREFERS TO USE [employer] FOR NON-URGENT COMMUNICATION 7AM- 7PM. IF I DO NOT RESPOND WITHIN 20 MINUTES OR URGENT MATTERS, PLEASE CALL THROUGH THE [facility]. FROM 7PM-7AM, PLEASE PAGE [phone](COVR). Chief Complaint Chief Complaint Patient presents with Cough Left sided facial numbness History of Present Illness Martha Apodaca is an 59 y.o. female who came from home with past medical history of COPD on oxygenas needed, complete AV block s/p PPM, bipolar depression, hypothyroidism, hyperlipidemia presents to the emergency department with a chief complaint of a cough. Patient reports that for the last weekshe has been short of breath. She reports a cough with associated yellow sputum production. She reports lightheadedness, dizziness, fevers, chills, nausea, vomiting. States that she took her inhalersat home without relief. Denies being around anyone that smokes. In the emergency department, patient was found to have a blood pressure of 107/65, heart rate 86, temp 98.4 and 89% on room air. 2 L of oxygen was placed with an improvement in oxygenation to 93%. Labs were completed which are grossly unremarkable. CXR was completed showing chronic hyperinflation and emphysematous changes with no focal consolidation to support pneumonia. Review of System and Physical Exam Temp: [36.9 ??C (98.4 ??F)] 36.9 ??C (98.4 ??F) Heart Rate: [72-86] 74 Resp: [15-26] 22 BP: (96-120)/(56-79) 96/78 Physical Exam Vitals reviewed. Constitutional: Appearance: She is normal weight. She is ill-appearing. HENT: Head: Normocephalic. Mouth/Throat: Mouth: Mucous membranes are dry. Pharynx: Oropharynx is clear. Eyes: Conjunctiva/sclera: Conjunctivae normal. Cardiovascular: Rate and Rhythm: Normal rate. Pulses: Normal pulses. Heart sounds: Normal heart sounds. Pulmonary: Effort: Pulmonary effort is normal. Breath sounds: Wheezing present. Abdominal: General: Abdomen is flat. Bowel sounds are normal. Palpations: Abdomen is soft. Musculoskeletal: General: Normal range of motion. Skin: General: Skin is warm and dry. Capillary Refill: Capillary refill takes less than 2 seconds. Neurological: General: No focal deficit present. Mental Status: She is alert and oriented to person, place, and time. Mental status is at baseline. Psychiatric: Mood and Affect: Mood normal. Review of Systems Constitutional: Positive for chills, diaphoresis, fatigue and fever. HENT: Positive for congestion. Negative for dental problem, drooling, ear discharge and ear pain. Respiratory: Positive for cough, shortness of breath and wheezing. Cardiovascular: Negative for chest pain, palpitations and leg swelling. Gastrointestinal: Positive for nausea and vomiting. Negative for abdominal pain, constipation and diarrhea. Genitourinary: Negative for difficulty urinating and dyspareunia. Musculoskeletal: Negative for arthralgias and back pain. Skin: Negative for color change and pallor. Neurological: Positive for dizziness and light-headedness. Negative for seizures, syncope, facial asymmetry, speech difficulty, numbness and headaches. Psychiatric/Behavioral: Negative for agitation, behavioral problems, confusion, decreased concentration and dysphoric mood. Assessment and Plan Assessment & Plan COPD exacerbation (CMS/HCC) Acute hypoxic respiratory failure (CMS/HCC) - Patient hypoxic upon arrival, 2 L nasal cannula placed, wean as able -Begin azithromycin x 3 days -Begin prednisone 40 mg oral x 5 days -Mucinex every 12 hours as needed -DuoNebs every 6 hours as needed Other hyperlipidemia - Continue simvastatin Complete AV block (CMS/HCC) - S/p PPM Bipolar depression (CMS/HCC) - Continue Lamictal, Celexa, Wellbutrin Acquired hypothyroidism - Continue levothyroxine VTE Prophylaxis: Lovenox ----- Focus of this inpatient stay will remain on problems that need acute care setting for care. We will review available studies and will order additional labs, imaging and other studies as appropriate. As needed medicines are ordered as appropriate. VTE Prophylaxis will be ordered as appropriate. Please see above for management plan for individual hospital problems. Home medications are reviewed and will be continued as appropriate. Patient will be continued to be followed during this hospital stay by a member of [facility]. Past Medical History Medical History[1] Past Surgical History Surgical History[2] Social History Social History Socioeconomic History Marital status: Single Spouse name: Not on file Number of children: Not on file Years of education: Not on file Highest education level: Not on file Occupational History Not on file Tobacco Use Smoking status: Never Smokeless tobacco: Never Substance and Sexual Activity Alcohol use: Not Currently Drug use: Never Sexual activity: Defer Other Topics Concern Not on file Social History Narrative Not on file Social Drivers of Health Financial Resource Strain: Low Risk (07/15/2025) Overall Financial Resource Strain (CARDIA) Difficulty of Paying Living Expenses: Not hard at all Food Insecurity: No Food Insecurity (07/15/2025) Hunger Vital Sign Worried About Running Out of Food in the Last Year: Never true Ran Out of Food in the Last Year: Never true Transportation Needs: No Transportation Needs (07/15/2025) Transportation Lack of Transportation (Medical): No Lack of Transportation (Non-Medical): No Physical Activity: Not on file Stress: Stress Concern Present (07/15/2025) Citizen Of [place] [employer] - Occupational Stress Questionnaire Feeling of Stress : To some extent Social Connections: Moderately Isolated (07/15/2025) Social Connection and Isolation Panel [NHANES] Frequency of Communication with Friends and Family: More than three times a week Frequency of Social Gatherings with Friends and Family: More than three times a week Attends Adventist Services: More than 4 times per year Active Member of Clubs or Organizations: No Attends Club or Organization Meetings: Never Marital Status: Never Intimate Partner Violence: Not At Risk (07/15/2025) Humiliation, Afraid, Rape, and Kick questionnaire Fear of Current or Ex-Partner: No Emotionally Abused: No Physically Abused: No Sexually Abused: No Housing Stability: Low Risk (07/15/2025) Housing Stability Vital Sign Unable to Pay for Housing in the Last Year: No Number of Times Moved in the Last Year: 0 Homeless in the Last Year: No Family History family history includes Alzheimer's disease in her father. Allergies is allergic to compazine [prochlorperazine] and sulfa (sulfonamide antibiotics). Prior to Admission Medications Prescriptions Prior to Admission[3] Labs Labs Reviewed BASIC METABOLIC PANEL - Abnormal Result Value Sodium 138 Potassium 3.8 Chloride 105 CO2 29 BUN 10 Creatinine 0.83 Glucose 105 (*) Calcium 8.3 (*) Anion Gap 8 eGFR 80.7 BUN/Creatinine Ratio 12.0 CBC WITH AUTO DIFFERENTIAL - Abnormal Auto WBC 4.01 RBC 4.68 Hemoglobin 12.9 Hematocrit 39.9 MCV 85.3 MCH 27.6 MCHC 32.3 RDW 14.6 Neutrophils % 56.2 Lymphocytes % 25.9 Monocytes % 7.5 Eosinophils % 10.0 (*) Basophils % 0.2 Neutrophils Absolute 2.25 Lymphocytes Absolute 1.04 (*) Monocytes Absolute 0.30 Eosinophils Absolute 0.40 Basophils Absolute 0.01 Platelets 235 nRBC % 0.0 Immature Granulocytes % 0.2 Immature Granulocytes Absolute 0.01 D-DIMER, QUANTITATIVE - Abnormal D-Dimer, Quant (FEU) <0.27 (*) Narrative: D-Dimer values of less than 0.50 ug/ml (FEU) are considered to be a negative predictor of thrombosis. However, the D-Dimer result should be used in conjunction with pretest probability and should notbe used alone to diagnose a thrombotic event. MAGNESIUM - Normal Magnesium 2.2 HIGH SENSITIVITY TROPONIN I - Normal High Sensitivity Troponin I <2 HIGH SENSITIVITY TROPONIN I - Normal High Sensitivity Troponin I <2 POCT COVID FLU ANTIGEN TEST - Normal Covid POC Negative Flu 1 Negative Flu 2 Negative LOT NUMBER [id number] Expiration Date 2026-06-01 QC OK ok CBC AND DIFFERENTIAL Narrative: The following orders were created for panel order CBC and differential. Procedure Abnormality Status --------- ------ CBC auto differential[[id number]] Abnormal Final result Please view results for these tests on the individual orders. Imaging XR chest 2 views Narrative: XR CHEST 2 VIEWS 07/15/2025 3:16 PM CLINICAL INDICATIONS: Pneumonia versus COPD exacerbation and shortness of breath COMPARISON: 02/20/2024 FINDINGS: Cardiac size is within normal range. Left subclavicular pacer leads are grossly intact. Lungs are grossly clear with moderate hyperinflation. There is no focal consolidation, pleural effusion or pneumothorax Impression: Chronic hyperinflation and emphysematous changes with no focal consolidation to support pneumonia. Electronically signed: Sena Yee. Signed Dona Rodriguez CNP [facility] 07/15/2025 7:07 PM [1] Past Medical History: Diagnosis Date Abnormal ECG COPD (chronic obstructive pulmonary disease) (CMS/HCC) Hyperlipidemia Symptomatic bradycardia [2] Past Surgical History: Procedure Laterality Date CHOLECYSTECTOMY INSERT / REPLACE / REMOVE PACEMAKER [3] (Not in a hospital admission) Cosigned by Radha Bowden MD at 07/15/2025 11:03 PM EDT documented in this encounter ED Notes * Ronald Marino MD - 07/15/2025 3:11 PM EDT History of Present Illness Chief Complaint Patient presents with Cough Left sided facial numbness Martha Apodaca is a 59-year-old female presenting to the emergency department for chief complaint ofcough. Patient states over the past few days she has had increasing cough, went to [facility] last night and got a chest x-ray that they said was not pneumonia. However, had more cough and weakness today while attempting to do some chores at home, and decided to come to [facility] for further evaluation. Patient states that she does not usually wear oxygen at home, generally does not need it until she gets an infection, and then does not need it after she recovers. Blanche Coma Scale Score: 15 History Medical History[1] Surgical History[2] Family History[3] Social History[4] Review of Systems Review of Systems Physical Exam ED Triage Vitals Temp Heart Rate Resp BP 07/15/25 1454 07/15/25 1428 07/15/25 1428 07/15/25 1428 36.9 ??C (98.4 ??F) 86 20 107/65 SpO2 Temp Source Heart Rate Source Patient Position 07/15/25 1428 07/15/25 1454 -- -- (!) 89 % Oral BP Location FiO2 (%) -- -- Physical Exam Vitals and nursing note reviewed. Constitutional: General: She is not in acute distress. Appearance: She is well-developed. HENT: Head: Normocephalic and atraumatic. Eyes: Extraocular Movements: Extraocular movements intact. Conjunctiva/sclera: Conjunctivae normal. Cardiovascular: Rate and Rhythm: Normal rate and regular rhythm. Heart sounds: No murmur heard. Pulmonary: Effort: Pulmonary effort is normal. No respiratory distress. Breath sounds: Wheezing present. Abdominal: Palpations: Abdomen is soft. Tenderness: There is no abdominal tenderness. Musculoskeletal: General: No swelling. Cervical back: Neck supple. Skin: General: Skin is warm and dry. Capillary Refill: Capillary refill takes less than 2 seconds. Neurological: General: No focal deficit present. Mental Status: She is alert and oriented to person, place, and time. Psychiatric: Mood and Affect: Mood normal. Procedures ED Course & MDM Diagnoses as of 07/15/25 1723 COPD exacerbation ([facility]) Medical Decision Making Patient has a history of COPD and is presenting with increasing shortness of breath and cough. Patient states she is sometimes coughing up mucus, sometimes not. With wheezing on physical exam, will give a DuoNeb, obtain a chest x-ray and CBC to make sure no obvious infection. However, patient is requiring 2 L oxygen at this time and does not wear oxygen at home. May stay for COPD exacerbation, will reevaluate after labs and imaging return. Patient states her symptoms are not improved after breathing treatment. She has repeatedly desaturated when trialed off nasal cannula. Patient will need to be kept in the hospital for further evaluation by pulmonology. SEE AND AGREE: 15:59 EDT I, Marty Mantilla (scribe), documented on behalf of and in the presence of Dr. Alexy Solano. Dr. Dr. Alexy Solano personally saw and evaluated the patient. I discussed the management with the KARRIE/Resident Additional Notes/Findings: 4:00 PM Martha Apodaca is a 59 y.o. female presenting to the ED for chief complaint of a cough and left-sided facial numbness. The pt states that for the past week or so she has had a cough and intermittentnumbness and tingling in the left side of her face. She says that the numbness tingling do not radiate into her extremities and she has not had any incontrollable drooling. The pt reports having a history of pneumonia and says that she has had a fever. She denies smoking. Exam findings as follows: Constitutional: Awake and alert HENT: Head normocephalic and atraumatic Eyes: conjunctiva unremarkable Cardiovascular: Heart rate regular Pulmonary: Wheezing. Abdominal: Flat and non-distended Skin: Warm and dry Musculoskeletal: Moving all extremities spontaneously Neurological: Intact. Attestation: I performed a history and physical exam on this patient and discussed his or her management with the resident. I reviewed the resident's note and agree with the documented findings and plan of care with the following exceptions: None Provider Statement KARRIE: Provider Statement 2nd Scribe. By electronically signing this emergency patient record, the Emergency Physician/GRIT REMOVAL OPERATOR/PA-C attests that all entries made into the electronic medical record by the scribe prior to the Physician/GRIT REMOVAL OPERATOR/PA-C signature reflect an accurate accounting of the evaluation and care rendered by that Emergency Physician/GRIT REMOVAL OPERATOR/PA-C. The Emergency Physician/GRIT REMOVAL OPERATOR/PA-C assumes full responsibility for those entries. The Emergency Physician/GRIT REMOVAL OPERATOR/PA-C also attests that any patient testing or treatment that was instituted by nursing staff. [1] Past Medical History: Diagnosis Date Abnormal ECG COPD (chronic obstructive pulmonary disease) ([facility]) Hyperlipidemia Symptomatic bradycardia [2] Past Surgical History: Procedure Laterality Date CHOLECYSTECTOMY INSERT / REPLACE / REMOVE PACEMAKER [3] Family History Problem Relation Name Age of Onset Alzheimer's disease Father [4] Social History Tobacco Use Smoking status: Never Smokeless tobacco: Never Substance Use Topics Alcohol use: Not Currently Drug use: Never Ronald Marino MD Resident 07/15/25 1913 Cosigned by Florentino Solano DO at 07/16/2025 11:08 AM EDT * Brandee Matias RN - 07/15/2025 2:26 PM EDT Mode of arrival (squad #, walk in, police, etc): Walk in Chief complaint(s): Cough/facial numbness Arrival Note (brief scenario, treatment DIRECTOR OF VOCATIONAL GUIDANCE, etc): Has not been feeling well for the past week. Shehas been coughing and feeling dizzy. Stated that the left side of her face as been feeling numb. When she coughs her ribs hurt her. documented in this encounter Miscellaneous Notes * Care Plan - Kenna Sierra RN - 07/17/2025 12:07 AM EDT The patient is Moderately Stable - Low risk of patient condition declining or worsening The patient's goals for the shift include rest The clinical goals for the shift include vss, rest Problem: Pain - Adult Goal: Verbalizes/displays adequate comfort level or baseline comfort level Outcome: Progressing Flowsheets (Taken 07/17/20256) Verbalizes/displays adequate comfort level or baseline comfort level: Encourage patient to monitor pain and request assistance Assess pain using appropriate pain scale Problem: Safety - Adult Goal: Free from fall injury Outcome: Progressing Problem: Discharge Planning Goal: Discharge to home or other facility with appropriate resources Outcome: Progressing Problem: Chronic Conditions and Co-morbidities Goal: Patient's chronic conditions and co-morbidity symptoms are monitored and maintained or improved Outcome: Progressing Problem: Respiratory - Adult Goal: Achieves optimal ventilation and oxygenation Outcome: Progressing Flowsheets (Taken 07/17/20256) Achieves optimal ventilation and oxygenation: Assess for changes in respiratory status Assess for changes in mentation and behavior Position to facilitate oxygenation and minimize respiratory effort Oxygen supplementation based on oxygen saturation or arterial blood gases Respiratory therapy support as indicated * Care Plan - Leia Vanegas RN - 07/16/2025 4:32 PM EDT Daily Case Management Update Multidisciplinary rounds have been completed. Barriers to Discharge: Patient presented with SOB and cough. Hx of COPD, wears home 02 as needed. CXR negative for pneumonia. AZA and prednisone started. 2L02. From home with son. Will to to see Pulmonary as an outpatient. Diet: Dietary Orders (From admission, onward) Start Ordered 07/15/25 1700 Regular Diet Diet effective now Question: Room Service? Answer: Yes 07/15/25 1700 Physician Expected Discharge Date: 07/17/2025 Discharge Delays: PT Six Click Score: OT Six Click Score: PT Recommendations: OT Recommendations: Is expected discharge disposition appropriate for patient?: Yes New Consults: * Significant Event - Leia Vanegas RN - 07/16/2025 12:14 PM EDT 07/16/25 1211 Admission Assessment Questions Verify insurance with patient Yes Do you understand medical disease or what brought you into the hospital? Yes Who is your current PCP? Paulo Turner Can I schedule a follow up appointment for you at the time of discharge? No Does patient qualify for Complex Care Management Enrollment? No Do you understand why you are taking your current medications? Yes Are you taking your medications as prescribed? Yes Did patient provide teach back? No Pharmacy Bedside Delivery Status Interested Does the patient have a counseling case manager assigned to them through their insurance? No Living Arrangement (Current/Prior to Hospitalization) Private residence (From home with son) Does the patient have history of HHC or SNF? No Assistive Device Not applicable Patient's goal for discharge Goal is to discharge back home with son Was patient reminded that goal for discharge is 11am? Yes Does the patient have transportation at discharge? Yes Type of Residence Private residence Is PT/OT appropriate? No Is PT/OT ordered? No Is SW consult appropriate? No Is SW consult ordered? No Do you understand the benefits of MyChart? Yes Were you able to send link and activate MyChart? No * Care Plan - Kenna Sierra RN - 07/16/2025 1:09 AM EDT The patient is Moderately Stable - Low risk of patient condition declining or worsening The patient's goals for the shift include rest The clinical goals for the shift include vss, comfort, rest Problem: Pain - Adult Goal: Verbalizes/displays adequate comfort level or baseline comfort level Outcome: Progressing Flowsheets (Taken 07/16/2025107) Verbalizes/displays adequate comfort level or baseline comfort level: Encourage patient to monitor pain and request assistance Assess pain using appropriate pain scale Administer analgesics based on type and severity of pain and evaluate response Problem: Safety - Adult Goal: Free from fall injury Outcome: Progressing Flowsheets (Taken 07/16/2025107) Free from fall injury: Assess patient frequently for physical needs Modify environment to reduce risk of injury Educate patient/family on patient safety, including physical limitations Instruct patient to call for assistance with activity based on assessment Bulger fall precautions as indicated by assessment Problem: Discharge Planning Goal: Discharge to home or other facility with appropriate resources Outcome: Progressing Problem: Chronic Conditions and Co-morbidities Goal: Patient's chronic conditions and co-morbidity symptoms are monitored and maintained or improved Outcome: Progressing Flowsheets (Taken 07/16/2025107) Care Plan - Patient's Chronic Conditions and Co-Morbidity Symptoms are Monitored and Maintained or Improved: Monitor and assess patient's chronic conditions and comorbid symptoms for stability, deterioration,or improvement Collaborate with multidisciplinary team to address chronic and comorbid conditions and prevent exacerbation or deterioration Update acute care plan with appropriate goals if chronic or comorbid symptoms are exacerbated and prevent overall improvement and discharge Problem: Respiratory - Adult Goal: Achieves optimal ventilation and oxygenation Outcome: Progressing Flowsheets (Taken 07/16/2025107) Achieves optimal ventilation and oxygenation: Assess for changes in respiratory status Assess for changes in mentation and behavior Position to facilitate oxygenation and minimize respiratory effort Oxygen supplementation based on oxygen saturation or arterial blood gases Assess and instruct to report shortness of breath or any respiratory difficulty Respiratory therapy support as indicated * Assessment & Plan Note - Dona Rodriguez CNP - 07/15/2025 9:41 PM EDTAssociated Problem(s): COPD exacerbation (CMS/[facility]) - Patient hypoxic upon arrival, 2 L nasal cannula placed, wean as able -Begin azithromycin x 3 days -Begin prednisone 40 mg oral x 5 days -Mucinex every 12 hours as needed -DuoNebs every 6 hours as needed * Assessment & Plan Note - Dona Rodriguez CNP - 07/15/2025 9:41 PM EDTAssociated Problem(s): Acute hypoxic respiratory failure (CMS/HCC) - Patient hypoxic upon arrival, 2 L nasal cannula placed, wean as able -Begin azithromycin x 3 days -Begin prednisone 40 mg oral x 5 days -Mucinex every 12 hours as needed -DuoNebs every 6 hours as needed * Assessment & Plan Note - Dona Rodriguez CNP - 07/15/2025 9:41 PM EDTAssociated Problem(s): Other hyperlipidemia - Continue simvastatin * Assessment & Plan Note - Dona Rodriguez CNP - 07/15/2025 9:41 PM EDTAssociated Problem(s): Complete AV block (CMS/HCC) - S/p PPM * Assessment & Plan Note - Dona Rodriguez CNP - 07/15/2025 9:41 PM EDTAssociated Problem(s): Bipolar depression (CMS/HCC) - Continue Lamictal, Celexa, Wellbutrin * Assessment & Plan Note - Dona Rodriguez CNP - 07/15/2025 9:41 PM EDTAssociated Problem(s): Acquired hypothyroidism - Continue levothyroxine * Significant Event - Iram Pavon RRT - 07/15/2025 8:26 PM EDT 07/15/252021 Bronchodilator Assessment Grid RR 3 Dyspnea 2 Breath Sounds 2 Resp History 2 Oxygen to keep SpO2 >/= 92% 2 Peak Flow 0 Level Level 2 Patient came in through ED with family SOB. Per protocol will be scheduled TID * Significant Event - Romina Klein - 07/15/2025 6:17 PM EDT 07/15/251816 Financial Resource Strain How hard is it for you to pay for the very basics like food, housing, medical care, and heating? Not hard Housing Stability In the last 12 months, was there a time when you were not able to pay the mortgage or rent on time?N In the past 12 months, how many times have you moved where you were living? 0 (Lives at home w/ son) At any time in the past 12 months, were you homeless or living in a fci (including now)? N Transportation Needs In the past 12 months, has lack of transportation kept you from medical appointments or from getting medications? no In the past 12 months, has lack of transportation kept you from meetings, work, or from getting things needed for daily living? No Food Insecurity Within the past 12 months, you worried that your food would run out before you got the money to buymore. Never true Within the past 12 months, the food you bought just didn't last and you didn't have money to get more. Never true Stress Do you feel stress - tense, restless, nervous, or anxious, or unable to sleep at night because yourmind is troubled all the time - these days? To some exte (endorsed establishment w/ current mental health services) Social Connections In a typical week, how many times do you talk on the phone with family, friends, or neighbors? Morethan 3 How often do you get together with friends or relatives? More than 3 How often do you attend buddhism or evangelical services? More than 4 Do you belong to any clubs or organizations such as buddhism groups, unions, fraternal or athletic groups, or school groups? No How often do you attend meetings of the clubs or organizations you belong to? Never Are you , , , , never , or living with a partner? Never marrie Intimate Partner Violence Within the last year, have you been afraid of your partner or ex-partner? No Within the last year, have you been humiliated or emotionally abused in other ways by your partner or ex-partner? No Within the last year, have you been kicked, hit, slapped, or otherwise physically hurt by your partner or ex-partner? No Within the last year, have you been raped or forced to have any kind of sexual activity by your partner or ex-partner? No Alcohol Use Q1: How often do you have a drink containing alcohol? Never Q2: How many drinks containing alcohol do you have on a typical day when you are drinking? None Q3: How often do you have six or more drinks on one occasion? Never Startupiities In the past 12 months has the [employer], oil, or water WUT threatened to shut off services in your home? 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 Referral Reason Psychosocial assessment Patient Information Primary Caregiver Self Activities of Daily Living Assistive Device Not applicable Ambulation Independent Dressing Independent Feeding Independent Behavior Oriented (A&Ox4) Communication Can write;Understands speaking;Talks;Understands Mozambican;Reads Income Information Income Source Unemployed (Retired) Discharge Planning Living Arrangements Children (Lives at home w/ son) Support Systems Parent (Mother (Ana)) Type of Residence Private residence (Lives w/ son) Post Acute Services None Patient's goal for discharge Home Does the patient need discharge transport arranged? No Completed social work assessment and SDoH screening. Patient was A&Ox4 at this time. Patient reported that she lives at home with her son and she identified her support system as her mother, Ana. Patient endorsed that she is socially active. Patient reported that she is independent with ADLs without the use of any DME, though noted that she has a walker available to her at home if needed. Patient reported that she is retired from employment and she denied the need for assistance with obtaining basic needs. Patient also denied the need for assistance with transportation for medical appointments and she denied that she will need assistance with transportation to return home from the hospital upon discharge. Patient endorsed experiencing a moderate level of stress in her everyday life and she endorsed current establishment with mental health services. Patient denied experiencing any form of IPV within the past year and denied any alcohol consumption or recreational drug use. documented in this encounter Plan of Treatment DateTypeDepartmentCare Team (Latest Contact Info)Lqunkstskts83/19/2025 1:00 PM ESTAppointment [facility] Pulmonary Function Testing [address] [place] [address] [facility] [address] [place] [id number] 09/08/2025 2:00 PM [facility]Cons[facility] [address] [place] [address] Dr [place], [place] [id number] Syde Palafox MD [address] [facility] [address] [facility] [place] [place] [address] NameTypePriorityAssociated DiagnosesOrder SchedulePulmonary function testing SpirometryPFTRoutine COPD exacerbation (CMS/HCC) Acute hypoxic respiratory failure (CMS/HCC) Expected: 07/23/2025 (Approximate), Expires: 07/16/2026documented as of this encounter Procedures Procedure NamePriorityDate/TimeAssociated DiagnosisCommentsCBCPending Discharge 07/17/2025 5:59 AM EDT MAGNESIUMPending Lgftfailk55/16/2025 5:59 AM EDT BASIC METABOLIC PANELPending Blaeruthl32/16/2025 5:59 AM EDT RESPIRATORY ASSESS AND TREAT KVGXBOYPAtuuaku44/15/2025 8:00 AM EDTCBCRoutine 07/16/2025 3:48 AM EDT BASIC METABOLIC YHUFKMwtynrw92/15/2025 3:48 AM EDT RESPIRATORY ASSESS AND TREAT ICCIATBRCcadpno35/14/2025 7:05 PM EDTRESPIRATORY ASSESS AND TREAT NYDVICMXQnktyqy20/14/2025 7:05 PM EDTD-DIMER, QUANTITATIVESTAT 07/15/2025 4:31 PM EDT HIGH SENSITIVITY TROPONIN ISTAT1 4:21 PM EDT POCT COVID FLU ANTIGEN DAGTKASB52/14/2025 4:21 PM EDT XR CHEST 2 SIXBXDUZX86/14/2025 3:32 PM EDT HIGH SENSITIVITY TROPONIN ISTAT1 3:21 PM EDT CBC WITH AUTO AWDUWITIXUNMHBFY65/14/2025 3:21 PM EDT CBC AND NBBTYDOOPLXJSSOX35/14/2025 3:21 PM EDT FYRGOCVKZMJNW80/14/2025 3:21 PM EDT BASIC METABOLIC OFOGBJGZC06/14/2025 3:21 PM EDT documented in this encounter Results * Magnesium (07/17/2025 5:59 AM EDT)ComponentValueRef RangeTest MethodAnalysis TimePerformed AtPathologist SignatureMagnesium2.21.9 - 2.7 mg/dL07/17/2025 8:35 AM [facility] ([place])Specimen (Source)Anatomical Location / LateralityCollection Method / VolumeCollection TimeReceived TimeBloodVenous blood specimen / UnknownVenipuncture / Tpoorqr8507/17/2025 5:59 AM EDT1 6:15 AM EDT Narrative Authorizing ProviderResult TypeResult StatusHadeer Mendy CHINCHILLA BLOOD ORDERABLESFinal ResultPerforming OrganizationAddressCity/State/ZIP CodePhone Number [facility] ([facility]) [address] [place] [address] * (ABNORMAL) Basic metabolic panel (07/17/2025 5:59 AM EDT)ComponentValueRef RangeTest MethodAnalysis TimePerformed AtPathologist LlqpyquxuLouxum542264 - 145 mmol/L1 6:39 AM [facility] ([facility])Potassium3.4(L)3.5 - 5.1 mmol/L1 6:39 AM [facility] ([facility])Kkhvkwkt07179 - 107 mmol/L1 6:39 AM [facility] ([facility])AG43140 - 31 mmol/L 07/17/2025 6:39 AM [facility] ([facility])BMF674 - 25 mg/dL07/17/2025 6:39 AM [facility] ([facility])Creatinine0.730.60 - 1.20 mg/dL07/17/2025 6:39 AM [facility] ([facility])Eqpdnrs504(H)70 - 100 mg/dL07/17/2025 6:39 AM [facility] ([facility])Calcium8.68.6 - 10.3 mg/dL07/17/2025 6:39 AM [facility] ([facility])Anion Nfo427 - 20 mmol/L1 6:39 AM [facility] ([facility])eGFR94.1>60.0 mL/min/1.73m* 6:39 AM [facility] ([facility])Comment:[facility]???s estimated glomerular filtration rate (eGFR) will [...] not disproportionately affect any one group of ind ividuals.BUN/Creatinine Ratio27.410 6:39 AM [facility] ([facility])Specimen (Source)Anatomical Location / LateralityCollection Method / VolumeCollection TimeReceived TimeBloodVenous blood specimen / Unknown Venipuncture / Bckwwyd1607/17/2025 5:59 AM EDT1 6:15 AM EDT Narrative Authorizing ProviderResult TypeResult StatusHadeer Mendy CHINCHILLA BLOOD ORDERABLESFinal ResultPerforming OrganizationAddressCity/State/ZIP CodePhone Number [facility] ([facility]) [address] [place] [address] * (ABNORMAL) CBC (07/17/2025 5:59 AM EDT)ComponentValueRef RangeTest Method Analysis TimePerformed AtPathologist SignatureAuto WBC5.574.00 - 10.60 10*3/uL 07/17/2025 7:03 AM [facility] ([facility])RBC4.203.80 - 5.00 10*6/uL 07/17/2025 7:03 AM [facility] ([facility])Cmgnmlvgal04.6(L)12.0 - 15.0 g/dL07/17/2025 7:03 AM [facility] ([facility])Yyronkfnwf57.536.0 - 45.0 %07/17/2025 7:03 AM [facility] ([facility])MCV86.982.0 - 98.0 fL 07/17/2025 7:03 AM [facility] ([facility])MCH27.627.0 - 33.0 pg 07/17/2025 7:03 AM [facility] ([facility])MCHC31.8(L)32.0 - 35.0 g/dL 07/17/2025 7:03 AM [facility] ([facility])RDW15.011.5 - 15.0 %07/17/2025 7:03 AM [facility] ([facility])Fdntfitiq737803 - 400 10*3/uL07/17/2025 7:03 AM [facility] ([facility])Specimen (Source)Anatomical Location / LateralityCollection Method / VolumeCollection TimeReceived TimeBloodVenous blood specimen / UnknownVenipuncture / Swyrkxj2707/17/2025 5:59 AM EDT1 6:15 AM EDT Narrative Authorizing ProviderResult TypeResult StatusHadegallito CHINCHILLA BLOOD ORDERABLESFinal ResultPerforming OrganizationAddressCity/State/ZIP CodePhone Number [facility] ([facility]) [address] [place] [address] * (ABNORMAL) CBC (07/16/2025 3:48 AM EDT)ComponentValueRef RangeTest Method Analysis TimePerformed AtPathologist SignatureAuto WBC3.58(L)4.00 - 10.60 10*3/uL07/16/2025 4:30 AM [facility] ([facility])RBC4.813.80 - 5.00 10*6/uL07/16/2025 4:30 AM [facility] ([facility])Bdfiazybyn55.212.0 - 15.0 g/dL07/16/2025 4:30 AM [facility] ([facility])Drnkiupand77.336.0 - 45.0 %07/16/2025 4:30 AM [facility] ([facility])MCV87.982.0 - 98.0 fL 07/16/2025 4:30 AM [facility] ([facility])MCH27.427.0 - 33.0 pg 07/16/2025 4:30 AM [facility] ([facility])MCHC31.2(L)32.0 - 35.0 g/dL 07/16/2025 4:30 AM [facility] ([facility])RDW14.611.5 - 15.0 %07/16/2025 4:30 AM [facility] ([facility])Otacboldc257810 - 400 10*3/uL07/16/2025 4:30 AM [facility] ([facility])Specimen (Source)Anatomical Location / LateralityCollection Method / VolumeCollection TimeReceived TimeBloodVenous blood specimen / UnknownVenipuncture / Zqdpjux6207/16/2025 3:48 AM EDT1 4:11 AM EDT Narrative Authorizing ProviderResult TypeResult StatusOmar Hira CHINCHILLA BLOOD ORDERABLES Final ResultPerforming OrganizationAddressCity/State/ZIP CodePhone Number [facility] ([facility]) [address] [place] [address] * (ABNORMAL) Basic metabolic panel (07/16/2025 3:48 AM EDT)ComponentValueRef RangeTest MethodAnalysis TimePerformed AtPathologist NpgkwxrspBxkehk822611 - 145 mmol/L1 4:34 AM [facility] ([facility])Potassium4.03.5 - 5.1 mmol/L1 4:34 AM [facility] ([facility])Wgbrzhji92877 - 107 mmol/L1 4:34 AM [facility] ([facility])YU70006 - 31 mmol/L 07/16/2025 4:34 AM [facility] ([facility])ZNB128 - 25 mg/dL07/16/2025 4:34 AM [facility] ([facility])Creatinine0.800.60 - 1.20 mg/dL07/16/2025 4:34 AM [facility] ([facility])Kgebqyu883(H)70 - 100 mg/dL07/16/2025 4:34 AM [facility] ([facility])Calcium8.78.6 - 10.3 mg/dL07/16/2025 4:34 AM [facility] ([facility])Anion Ucx529 - 20 mmol/L1 4:34 AM [facility] ([facility])eGFR84.3>60.0 mL/min/1.73m* 4:34 AM [facility] ([facility])Comment:[facility]???s estimated glomerular filtration rate (eGFR) will [...] not disproportionately affect any one group of ind ividuals.BUN/Creatinine Ratio12.510/ 4:34 AM [facility])Specimen (Source)Anatomical Location / LateralityCollection Method / VolumeCollection TimeReceived TimeBloodVenous blood specimen / Unknown Venipuncture / Eahcikn9307/16/2025 3:48 AM EDT1 4:11 AM EDT Narrative Authorizing ProviderResult TypeResult StatusOmar Hira CHINCHILLA BLOOD ORDERABLES Final ResultPerforming OrganizationAddressCity/State/ZIP CodePhone Number [facility] ([facility]) [address] [place] [address] * (ABNORMAL) D-dimer, quantitative (07/15/2025 4:31 PM EDT)ComponentValueRef RangeTest MethodAnalysis TimePerformed AtPathologist SignatureD-Dimer, Quant (FEU)<0.27(L)0.27 - 0.49 mcg/mL FEU1 4:57 PM [facility])Specimen (Source)Anatomical Location / LateralityCollection Method / VolumeCollection TimeReceived TimeBloodVenous blood specimen / Unknown Venipuncture / Khcprzc4907/15/2025 4:31 PM EDT1 4:32 PM EDT Narrative [facility]) - 07/15/2025 4:57 PM EDT D-Dimer values of less than 0.50 ug/ml (FEU) are considered to be a negative predictor of thrombosis. However, the D-Dimer result should be used in conjunction with pretest probability and should not be used alone to diagnose a thrombotic event. Authorizing ProviderResult TypeResult StatusStstefan Medina HospitalAB BLOOD ORDERABLESFinal ResultPerforming OrganizationAddressCity/State/ZIP CodePhone Number [facility]) [address] [place] [address] * POCT Covid sars flu A flu B (07/15/2025 4:21 PM EDT)ComponentValueRef Range Test MethodAnalysis TimePerformed AtPathologist SignatureCovid POCNegativeFlu 1NegativeFlu 2NegativeLOT [id number] [id number] OKok Specimen (Source)Anatomical Location / LateralityCollection Method / Volume Collection TimeReceived VnznXfzph55/14/2025 4:21 PM EDT Narrative Authorizing ProviderResult TypeResult StatusStephen Xiomara DOPOINT OF CARE TEST ENTER/EDIT ORDERABLESFinal Result * Repeat HS Troponin I (07/15/2025 4:21 PM EDT)ComponentValueRef RangeTest MethodAnalysis TimePerformed AtPathologist SignatureHigh Sensitivity Troponin I<2<15 ng/L1 4:56 PM [facility] ([place])Specimen (Source) Anatomical Location / LateralityCollection Method / VolumeCollection Time Received TimeBloodVenous blood specimen / UnknownVenipuncture / Unknown 07/15/2025 4:21 PM EDT1 4:26 PM EDT Narrative Authorizing ProviderResult TypeResult StatusStephen Xiomara DOLAB BLOOD ORDERABLESFinal ResultPerforming OrganizationAddressCity/State/ZIP CodePhone Number [facility] ([place]) [address] [place] [address] * XR chest 2 views (07/15/2025 3:32 PM EDT)Anatomical RegionLateralityModality ChestComputed RadiographySpecimen (Source)Anatomical Location / Laterality Collection Method / VolumeCollection TimeReceived Time07/15/2025 3:37 PM EDT Impressions 07/15/2025 3:38 PM EDT Chronic hyperinflation and emphysematous changes with no focal consolidation to support pneumonia. Electronically signed: Sena Yee. Narrative 07/15/2025 3:38 PM EDT XR CHEST 2 VIEWS 07/15/2025 3:16 PM CLINICAL INDICATIONS: Pneumonia versus COPD exacerbation and shortness of breath COMPARISON: 02/20/2024 FINDINGS: Cardiac size is within normal range. Left subclavicular pacer leads are grossly intact. Lungs are grossly clear with moderate hyperinflation. There is no focal consolidation, pleural effusion or pneumothorax Procedure Note Sena Yee MD - 07/15/2025 XR CHEST 2 VIEWS 07/15/2025 3:16 PM CLINICAL INDICATIONS: Pneumonia versus COPD exacerbation and shortness ofbreath COMPARISON: 02/20/2024 FINDINGS: Cardiac size is within normal range. Left subclavicular pacerleads are grossly intact. Lungs are grossly clear with moderate hyperinflation.There is no focal consolidation, pleural effusion or pneumothorax IMPRESSION: Chronic hyperinflation and emphysematous changes with no focalconsolidation to support pneumonia. Electronically signed: Sena eYe. Authorizing ProviderResult TypeResult StatusStephen Xiomara DOIMG XR PROCEDURES Final Result * (ABNORMAL) CBC auto differential (07/15/2025 3:21 PM EDT)ComponentValueRef RangeTest MethodAnalysis TimePerformed AtPathologist SignatureAuto WBC4.014.00 - 10.60 10*3/uL07/15/2025 4:02 PM [facility] ([facility])RBC4.683.80 - 5.00 10*6/uL07/15/2025 4:02 PM [facility] ([facility])Mexmpannbr13.912.0 - 15.0 g/dL07/15/2025 4:02 PM [facility] ([facility])Ikxpjbplkh23.936.0 - 45.0 %07/15/2025 4:02 PM [facility] ([facility])MCV85.382.0 - 98.0 fL 07/15/2025 4:02 PM [facility] ([facility])MCH27.627.0 - 33.0 pg 07/15/2025 4:02 PM [facility] ([facility])MCHC32.332.0 - 35.0 g/dL 07/15/2025 4:02 PM [facility] ([facility])RDW14.611.5 - 15.0 %07/15/2025 4:02 PM [facility] ([facility])Neutrophils %56.240.0 - 72.0 %07/15/2025 4:02 PM [facility] ([facility])Lymphocytes %25.920.0 - 45.0 %07/15/2025 4:02 PM [facility] ([facility])Monocytes %7.55.0 - 12.0 %07/15/2025 4:02 PM [facility] ([facility])Eosinophils %10.0(H)0.0 - 6.0 %07/15/2025 4:02 PM [facility] ([facility])Basophils %0.20.0 - 1.0 %07/15/2025 4:02 PM [facility] ([facility])Neutrophils Absolute2.251.60 - 7.60 10*3/uL 07/15/2025 4:02 PM [facility] ([facility])Lymphocytes Absolute1.04(L) 1.20 - 4.00 10*3/uL07/15/2025 4:02 PM [facility] ([facility])Monocytes Absolute0.300.10 - 1.00 10*3/uL07/15/2025 4:02 PM [facility] ([facility])Eosinophils Absolute0.400.00 - 0.50 10*3/uL07/15/2025 4:02 PM [facility] ([facility])Basophils Absolute0.010.00 - 0.20 10*3/uL07/15/2025 4:02 PM [facility] ([facility])Jvepesung031103 - 400 10*3/uL07/15/2025 4:02 PM [facility] ([facility])nRBC %0.00 %07/15/2025 4:02 PM [facility])Immature Granulocytes %0.20.0 - 1.0 %07/15/2025 4:02 PM [facility] ([facility])Immature Granulocytes Absolute0.010.00 - 0.20 10*3/uL07/15/2025 4:02 PM [facility])Specimen (Source) Anatomical Location / LateralityCollection Method / VolumeCollection Time Received TimeBloodVenous blood specimen / UnknownVenipuncture / Unknown 07/15/2025 3:21 PM EDT1 3:43 PM EDT Narrative Authorizing ProviderResult TypeResult StatusStephen Xiomara DOLAB BLOOD ORDERABLESFinal ResultPerforming OrganizationAddressCity/State/ZIP CodePhone Number [facility] ([facility]) [address] [place] [address] * HS Troponin I (07/15/2025 3:21 PM EDT)ComponentValueRef RangeTest Method Analysis TimePerformed AtPathologist SignatureHigh Sensitivity Troponin I<2<15 ng/L1 4:12 PM [facility] ([facility])Specimen (Source) Anatomical Location / LateralityCollection Method / VolumeCollection Time Received TimeBloodVenous blood specimen / UnknownVenipuncture / Unknown 07/15/2025 3:21 PM EDT1 3:43 PM EDT Narrative Authorizing ProviderResult TypeResult StatusStephen Xiomara DOLAB BLOOD ORDERABLESFinal ResultPerforming OrganizationAddressCity/State/ZIP CodePhone Number [facility] ([facility]) [address] [place] [address] * Magnesium (07/15/2025 3:21 PM EDT)ComponentValueRef RangeTest MethodAnalysis TimePerformed AtPathologist SignatureMagnesium2.21.9 - 2.7 mg/dL07/15/2025 4:07 PM [facility] ([facility])Specimen (Source)Anatomical Location / LateralityCollection Method / VolumeCollection TimeReceived TimeBloodVenous blood specimen / UnknownVenipuncture / Ryknmct2907/15/2025 3:21 PM EDT1 3:43 PM EDT Narrative Authorizing ProviderResult TypeResult StatusStephen Xiomara DOLAB BLOOD ORDERABLESFinal ResultPerforming OrganizationAddressCity/State/ZIP CodePhone Number [facility] ([facility]) [address] [place] [address] * (ABNORMAL) Basic metabolic panel (07/15/2025 3:21 PM EDT)ComponentValueRef RangeTest MethodAnalysis TimePerformed AtPathologist FiuvtzkksEazcsk549894 - 145 mmol/L1 4:07 PM [facility] ([facility])Potassium3.83.5 - 5.1 mmol/L1 4:07 PM [facility] ([facility])Wrtnatpc92610 - 107 mmol/L1 4:07 PM [facility] ([facility])WY83835 - 31 mmol/L 07/15/2025 4:07 PM [facility] ([facility])RUS638 - 25 mg/dL07/15/2025 4:07 PM [facility] ([facility])Creatinine0.830.60 - 1.20 mg/dL07/15/2025 4:07 PM [facility] ([facility])Oqtmpaz260(H)70 - 100 mg/dL07/15/2025 4:07 PM [facility] ([facility])Calcium8.3(L)8.6 - 10.3 mg/dL07/15/2025 4:07 PM [facility] ([facility])Anion Gap87 - 20 mmol/L1 4:07 PM [facility] ([facility])eGFR80.7>60.0 mL/min/1.73m* 4:07 PM [facility] ([facility])Comment:[facility]???s estimated glomerular filtration rate (eGFR) will [...] not disproportionately affect any one group of ind ividuals.BUN/Creatinine Ratio12. 4:07 PM [facility] ([facility])Specimen (Source)Anatomical Location / LateralityCollection Method / VolumeCollection TimeReceived TimeBloodVenous blood specimen / Unknown Venipuncture / Hbdipar2507/15/2025 3:21 PM EDT1 3:43 PM EDT Narrative Authorizing ProviderResult TypeResult StatusStephen Xiomara DOLAB BLOOD ORDERABLESFinal ResultPerforming OrganizationAddressCity/State/ZIP CodePhone Number [facility] ([facility]) [address] [place] [address] documented in this encounter Visit Diagnoses Diagnosis COPD exacerbation (CMS/HCC)- Primary Obstructive chronic bronchitis with exacerbation COPD exacerbation (CMS/HCC) Obstructive chronic bronchitis with exacerbation Acute hypoxic respiratory failure (CMS/HCC) Acute hypoxic respiratory failure (CMS/HCC) Complete AV block (CMS/HCC) Atrioventricular block, complete Bipolar depression (CMS/HCC) Bipolar I disorder, most recent episode (or current) depressed, unspecified Acquired hypothyroidism Unspecified hypothyroidism Other hyperlipidemia documented in this encounter Admitting Diagnoses Diagnosis COPD exacerbation (CMS/HCC) Obstructive chronic bronchitis with exacerbation documented in this encounter Administered Medications Medication OrderMAR ActionAction DateDoseRateSite acetaminophen (Tylenol) tablet 650 mg 650 mg, oral, Every 6 hours PRN, mild pain (1-3 pain score), headaches, fever greater than or equalto 38 degrees Celsius, (1-3), Starting on Mon07/15/25 at 1659, For 99 days albuterol 90 mcg/actuation inhaler 2 puff 2 puff, inhalation, Every 6 hours PRN, wheezing, Starting on Mon07/16/25 at 0829, For 99 days azithromycin (Zithromax) tablet 500 mg 500 mg, oral, Daily, First dose on Mon07/15/25 at 1910, For 3 days, Suspected Indication (Select all that apply): Pneumonia, Type of Pneumonia: Community-Acquired Given07/17/2025 9:53 AM HZA122 pmSndpg8607/16/2025 9:29 AM ERT993 mgGiven 07/15/2025 9:05 PM MPG382 mg buPROPion XL (Wellbutrin XL) 24 hr tablet 300 mg 300 mg, oral, Daily, First dose on Mon07/16/25 at 1000, For 99 days, Do not crush, chew, or split. Given07/17/2025 9:53 AM LRZ404 uiFlpgi7507/16/2025 9:29 AM AVL833 mg cetirizine (ZyrTEC) tablet 10 mg 10 mg, oral, Daily, First dose on Mon07/16/25 at 1000 Given07/17/2025 9:53 AM EDT10 niXovbc6607/16/2025 9:29 AM EDT10 mg cholecalciferol (Vitamin D-3) tablet 2,000 Units 2,000 Units, oral, Daily, First dose on Mon07/16/25 at 1000 Given07/17/2025 9:53 AM EDT2,000 DpzouPgxhk84/15/2025 9:29 AM EDT2,000 Units citalopram (CeleXA) tablet 20 mg 20 mg, oral, Daily, First dose on Mon07/16/25 at 1000, For 98 days Given07/17/2025 9:53 AM EDT20 fzFiaer6007/16/2025 9:29 AM EDT20 mg enoxaparin (Lovenox) syringe 40 mg 40 mg, subcutaneous, Daily, First dose on Mon07/16/25 at 1000, For 99 days Given07/17/2025 9:53 AM EDT40 mgLeft Lower UydcwnhJbnwr34/15/2025 9:29 AM EDT40 mgLeft Lower Abdomen guaiFENesin (Mucinex) 12 hr tablet 600 mg 600 mg, oral, 2 times daily PRN, cough, Starting on Mon07/15/25 at 1905, For 99 days, Administer with plenty of fluids to ensure proper action. Do not crush, chew, or split. ipratropium-albuteroL (Duo-Neb) 0.5-2.5 mg/3 mL nebulizer solution 3 mL 3 mL, nebulization, Once, On Mon07/15/25 at 1515, For 1 dose Given07/15/2025 3:39 PM EDT3 mL ipratropium-albuteroL (Duo-Neb) 0.5-2.5 mg/3 mL nebulizer solution 3 mL 3 mL, nebulization, Every 6 hours while awake RT, First dose on Mon07/15/25 at 2030, For 99 days Given07/17/2025 2:16 PM EDT3 aHFcaig0807/17/2025 8:14 AM EDT3 [id number]/16/2025 7:37 PM EDT3 mL lamoTRIgine (LaMICtal) tablet 50 mg 50 mg, oral, Daily, First dose on Mon07/16/25 at 1000, For 99 days Given07/17/2025 9:53 AM EDT50 [id number]/16/2025 9:29 AM EDT50 mg lansoprazole (Prevacid SoluTab) disintegrating tablet 30 mg 30 mg, oral, Daily before breakfast, First dose on Mon07/16/25 at 0730, Indication: GERD Given07/17/2025 6:20 AM EDT30 [id number]/16/2025 6:32 AM EDT30 mg levothyroxine (Synthroid, Levoxyl) tablet 125 mcg 125 mcg, oral, Daily, First dose on Mon07/16/25 at 1000, For 98 days Given07/17/2025 9:53 AM [id number] xywJhqwv86/15/2025 9:29 AM BPD301 mcg ondansetron HCl (PF) (Zofran) injection 4 mg 4 mg, intravenous, Every 6 hours PRN, nausea, vomiting, Starting on Mon07/15/25 at 1659, For 99 days, Give IV if patient is unable to take orally. Administer as an IV push over 2 to 5 minutes. ondansetron ODT (Zofran-ODT) disintegrating tablet 4 mg 4 mg, oral, Every 8 hours PRN, nausea, vomiting, Starting on Mon07/15/25 at 1659, For 99 days Oxygen Therapy Routine, Device: Nasal Cannula, Flow in liters per minute: 2 Lpm, Titrate O2 Saturation to be Above: 92% Oxygen On07/16/2025 8:50 AM EDT potassium chloride CR (Klor-Con M20) ER tablet 20 mEq 20 mEq, oral, Every 1 hour, First dose on Mon07/17/25 at 0900, For 2 doses, Serum K 3-3.4 Do not crush or chew. Given07/17/2025 11:47 AM EDT20 rAuSyxpm33/16/2025 9:53 AM EDT20 mEq predniSONE (Deltasone) tablet 40 mg 40 mg, oral, Daily, First dose on Mon07/15/25 at 1910, For 5 days Given07/17/2025 9:53 AM EDT40 amZdgxg1007/16/2025 9:29 AM EDT40 [id number]/15/2025 8:41 PM EDT40 mg sennosides-docusate sodium (Emerita-Colace) 8.6-50 mg per tablet 1 tablet 1 tablet, oral, 2 times daily PRN, constipation, Starting on Mon07/15/25 at 1659, For 99 days simvastatin (Zocor) tablet 20 mg 20 mg, oral, Nightly, First dose on Mon07/15/25 at 2200, For 99 days Given07/16/2025 9:15 PM EDT20 [id number]/15/2025 10:04 PM EDT20 mgdocumented in this encounter Active and Recently Administered Medications Times are shown in EDT.Medication Order/ azithromycin (Zithromax) tablet 500 mg (COMPLETED) 500 mg, oral, Daily, First dose on Mon07/15/25 at 1910, For 3 days, Suspected Indication (Select all that apply): Pneumonia, Type of Pneumonia: Community-Acquired * 2104 (Given - Provider: Kenna Sierra RN) * 0929 (Given - Provider: Janeth Mchugh RN) * 0953 (Given - Provider: Janeth Mchugh, COLLEEN) buPROPion XL (Wellbutrin XL) 24 hr tablet 300 mg 300 mg, oral, Daily, First dose on Mon07/16/25 at 1000, For 99 days, Do not crush, chew, or split. * 0929 (Given - Provider: Janeth Mchugh RN) * 0953 (Given - Provider: Janeth Mchugh, COLLEEN) cetirizine (ZyrTEC) tablet 10 mg 10 mg, oral, Daily, First dose on Mon07/16/25 at 1000 * 0929 (Given - Provider: Janeth Mchugh, RN) * 0953 (Given - Provider: Janeth Mchugh, RN) cholecalciferol (Vitamin D-3) tablet 2,000 Units 2,000 Units, oral, Daily, First dose on Mon07/16/25 at 1000 * 0929 (Given - Provider: Janeth Mchugh, COLLEEN) * 0953 (Given - Provider: Janeth Mchugh, RN) citalopram (CeleXA) tablet 20 mg 20 mg, oral, Daily, First dose on Mon07/16/25 at 1000, For 98 days * 0929 (Given - Provider: Janeth Mchugh, COLLEEN) * 0953 (Given - Provider: Janeth Mchugh, RN) enoxaparin (Lovenox) syringe 40 mg 40 mg, subcutaneous, Daily, First dose on Mon07/16/25 at 1000, For 99 days * 0929 (Given - Provider: Janeth Mchugh RN) * 0953 (Given - Provider: Janeth Mchugh RN) ipratropium-albuteroL (Duo-Neb) 0.5-2.5 mg/3 mL nebulizer solution 3 mL (COMPLETED) 3 mL, nebulization, Once, On Mon07/15/25 at 1515, For 1 dose * 1539 (Given - Provider: Kalyani Ocampo RN) ipratropium-albuteroL (Duo-Neb) 0.5-2.5 mg/3 mL nebulizer solution 3 mL 3 mL, nebulization, Every 6 hours while awake RT, First dose on Mon07/15/25 at 2030, For 99 days * 2028 (Given - Provider: Iram Pavon, POTATO PEELER) * 0850 (Given - Provider: Beti Martin RRT) * 1421 (Given - Provider: Beti Martin RRT) * 193 (Given - Provider: Iram Pavon RRT) * 0814 (Given - Provider: Johnny Harris RRT) * 141 (Given - Provider: Janette Crawford) * 1999 (Canceled Entry - Provider: Automatic Discharge Provider - Comment: Automatically canceled at discontinue of medication order) lamoTRIgine (LaMICtal) tablet 50 mg 50 mg, oral, Daily, First dose on Mon07/16/25 at 1000, For 99 days * 0929 (Given - Provider: Janeth Mchugh RN) * 0953 (Given - Provider: Janeth Mchugh RN) lansoprazole (Prevacid SoluTab) disintegrating tablet 30 mg 30 mg, oral, Daily before breakfast, First dose on Mon07/16/25 at 0730, Indication: GERD * 0632 (Given - Provider: Kenna Sierra, COLLEEN) * 0620 (Given - Provider: Kenna Sierra RN) levothyroxine (Synthroid, Levoxyl) tablet 125 mcg 125 mcg, oral, Daily, First dose on Mon07/16/25 at 1000, For 98 days * 0929 (Given - Provider: Janeth Mchugh RN) * 0953 (Given - Provider: Janeth Mchugh COLLEEN) Oxygen Therapy Routine, Device: Nasal Cannula, Flow in liters per minute: 2 Lpm, Titrate O2 Saturation to be Above: 92% * 0850 (Oxygen On - Provider: Beti Martin, EVELIO) potassium chloride CR (Klor-Con M20) ER tablet 20 mEq (COMPLETED) 20 mEq, oral, Every 1 hour, First dose on Mon07/17/25 at 0900, For 2 doses, Serum K 3-3.4 Do not crush or chew. * 0953 (Given - Provider: Janeth Mchugh, RN) * 1147 (Given - Provider: Janeth Mchugh, RN) predniSONE (Deltasone) tablet 40 mg 40 mg, oral, Daily, First dose on Mon07/15/25 at 1910, For 5 days * 2040 (Given - Provider: Kenna Sierra, RN) * 0929 (Given - Provider: Janeth Mchugh, RN) * 0953 (Given - Provider: Janeth Mchugh, RN) simvastatin (Zocor) tablet 20 mg 20 mg, oral, Nightly, First dose on Mon07/15/25 at 2200, For 99 days * 2203 (Given - Provider: Kenna Sierra, RN) * 2114 (Given - Provider: Kenna Sierra, RN) Medication Order// acetaminophen (Tylenol) tablet 650 mg 650 mg, oral, Every 6 hours PRN, mild pain (1-3 pain score), headaches, fever greater than or equalto 38 degrees Celsius, (1-3), Starting on Mon07/15/25 at 1659, For 99 days albuterol 90 mcg/actuation inhaler 2 puff 2 puff, inhalation, Every 6 hours PRN, wheezing, Starting on Mon07/16/25 at 0829, For 99 days albuterol 90 mcg/actuation inhaler 2 puff 2 puff, inhalation, Every 4 hours PRN, wheezing, Starting on Mon07/17/25 at 1156 guaiFENesin (Mucinex) 12 hr tablet 600 mg 600 mg, oral, 2 times daily PRN, cough, Starting on Mon07/15/25 at 1905, For 99 days, Administer with plenty of fluids to ensure proper action. Do not crush, chew, or split. meclizine (Antivert) tablet 25 mg 25 mg, oral, 4 times daily PRN, dizziness, nausea, Starting on Mon07/15/25 at 2142, For 99 days ondansetron HCl (PF) (Zofran) injection 4 mg(Linked Group 1) 4 mg, intravenous, Every 6 hours PRN, nausea, vomiting, Starting on Mon07/15/25 at 1659, For 99 days, Give IV if patient is unable to take orally. Administer as an IV push over 2 to 5 minutes. ondansetron ODT (Zofran-ODT) disintegrating tablet 4 mg(Linked Group 1) 4 mg, oral, Every 8 hours PRN, nausea, vomiting, Starting on Mon07/15/25 at 1659, For 99 days sennosides-docusate sodium (Emerita-Colace) 8.6-50 mg per tablet 1 tablet 1 tablet, oral, 2 times daily PRN, constipation, Starting on Mon07/15/25 at 1659, For 99 days Order Group 1: ondansetron ODT (Zofran-ODT) disintegrating tablet 4 mgJump to med 4 mg, oral, Every 8 hours PRN, nausea, vomiting, Starting on Mon07/15/25 at 1659, For 99 days Or ondansetron HCl (PF) (Zofran) injection 4 mgJump to med 4 mg, intravenous, Every 6 hours PRN, nausea, vomiting, Starting on Mon07/15/25 at 1659, For 99 days, Give IV if patient is unable to take orally. Administer as an IV push over 2 to 5 minutes. documented in this encounter Care Teams Team MemberRelationshipSpecialtyStart DateEnd Date Paulo Turner MD [facility] [place] [id number] [facility]04/26/23documented as of this encounter
[2025-07-20] VITALS (12 sets, daily range): BP systolic 138; BP diastolic 89; PULSE 82–94; TEMP 36.8; O2SAT 91–98; BMI 19.5
--- OUTSIDE RECORDS SUMMARY | 2025-07-20 22:26 | XMS_ITS | CCD ---
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 She has been coughing and feeling dizzy. Stated that the left side of her face as been feeling numb. When she coughs her ribs hurt her. Normal [facility] EDPROVon 07-15-2025 EDPROV History of Present I llness Chief Complaint Patient presents with Cough Left sided facial numbness Emigdio Apodaca is a 59-year-old female presenting to the emergency department for chief complaint of cough. Patient states over the past few days she has had increasing cough, went to [facility] last night and got a chest x-ray that they said was not pneumonia. However, had more cough and weakness today while attempting to do some chores at home, and decided to come to [facility] for further evaluation. Patient states that she does not usually wear oxygen at home, generally does not need it until she gets an infection, and then does not need it after she recovers. [employer] Coma Scale Score: 15 History Medical History[1] Surgical History[2] Family History[3] Social History[4] Review of Systems Review of Systems Physical Exam ED Triage Vitals Temp Heart Rate Resp BP 07/15/25 1454 07/15/25 1428 07/15/25 1428 07/15/25 1428 36.9 ???C (98.4 ???F) 86 20 107/65 SpO2 Temp Source Heart [...] Diagnoses as of 07/15/25 1723 COPD exacerbation ([facility]) Medical Decision Making Patient has a history [...] and in the presence of Dr. Alexy Ruiz. Dr. Dr. Alexy Ruiz personally saw and evaluated the patient. I discussed the management with the KARRIE/Resident Additional Notes/Findings: 4:00 PM Emigdio Apodaca is a 59 y.o. female presenting to the ED for chief complaint of a cough and left-sided facial numbness. The pt states that for the past week or so she has had a cough and intermittent numbness and tingling in the left side of [...] with the following exceptions: None Provider Statement KARIRE: Provider Statement 2nd Scribe. By electronically signing this emergency patient record, the Emergency Physician/OPERATIONAL RISK CONSULTANT/PA-C attests that all entries made into the electronic medical record by the scribe prior to the Physician/OPERATIONAL RISK CONSULTANT/PA-C signature reflect an accurate accounting of the evaluation and care rendered by that Emergency Physician/OPERATIONAL RISK CONSULTANT/PA-C. The Emergency Physician/OPERATIONAL RISK CONSULTANT/PA-C assumes full responsibility for those entries. The Emergency Physician/OPERATIONAL RISK CONSULTANT/PA-C also attests that any patient testing or treatment that was instituted by nursing staff. [1] Past Medical History: Diagnosis Date Abnormal ECG COPD (chronic obstructive pulmonary disease) ([facility]) Hyperlipidemia Symptomatic bradycardia (more content not included)... Normal [facility] HIGH SENSITIVITY TROPONIN Io n 07-15-2025 HS TROPONIN I (NG/L) <2 Normal <15 [facility] Comment on above: Performed By: #### L [id number] #### [facility] ([facility]) [address] [place] [address] HS TROPONIN I (NG/L) <2 Normal <15 [facility] Comment on above: Performed By: #### L [id number] ####[facility] ([facility])[address] [place] [address] MAGNESIUMon 07-15-2025 Magnesium [Mass/Vol] 2.2 mg/dL Normal 1.9-2.7 [facility] Comment on above: Performed By: #### L [id number] #### [facility] ([facility]) [address] [place] [address] Orders Onlyon 05-04-2025 Orders Only [id number] Dariel Apodaca 1965 F Date Provider Department Center 05/04/2025 ELLIOT HDZ [facility] CARD AR HeartVAS Family History Problem Relation Age of Onset Alzheimer's disease Father Family Status - Relation Status Age at Mother Alive Father Normal [facility] Office Visiton 03-28-2025 Follow-up visit [id number] Dariel Apodaca 1965 F Date Provider Department Center 03/28/2025 [id number], ADAM ALECIA [facility] Family History Problem Relation Age of Onset Alzheimer's disease Father Family Status - Relation Status Age at Mother Alive Father Level of Service:07866 [place] OFFICE/OUTPATIENT ESTABLISHED MOD MDM 30 MIN Normal [facility] Orders Onlyon 03-27-2025 Orders Only [id number] Dariel Apodaca S 1965 F Date Provider Department Center 03/27/2025 [id number], WANG ALECIA [facility] Family History Problem Relation Age of Onset Alzheimer's disease Father Family Status - Relation Status Age at Mother Alive Father Normal [facility] Cholesterol [Mass/volume] in Serum or PlasmaOrdered By: Jaquan Babin on 12-02-2024 Cholesterol [Mass/Vol] Cholesterol [Mass /volume] in Serum or Plasma 140-200 [facility] Comment on above: Chol less than 200 m g/dl low riskChol 201-239 mg/dl borderline riskChol 240 mg/dl and greater high risk Cholesterol in HDL [Mass/vol ume] in Serum or PlasmaOrdered By: Jaquan Babin on 12-02-2024 Cholesterol in HDL [Mass/Vol] Serum or plasma high density lipoprotein (HDL) cholesterol measurement 23-92 [facility] Comment on above: HDL CHOL ATP-III CLA SSIFICATION Cardiovascular RiskHDL > or equal to 60 mg/dL LOWHDL < 40 mg/dL HIGH Cholesterol in LDL Calc [Mas s/Vol]Ordered By: Jaquan Babin on 12-02-2024 Cholesterol in LDL [Mass/Vol] Cholesterol in LDL [Mass/volume] in Serum or Plasma by calculation 0-100 [facility] Comment on above: LDL ATP III CLASSIFI CATIONLDL less than 100 mg/dL OptimalLDL 100-129 mg/dL Near or above optimalLDL 130-159 mg/dL Borderline highLDL 160-189 mg/dL HighLDL greater than 189 mg/dL Very high Cholesterol in VLDL Calc [Ma ss/Vol]Ordered By: Jaquan Babin on 12-02-2024 Cholesterol in VLDL [Mass/Vol] Cholesterol in VLDL [Mass/volume] in Serum or Plasma by calculation [facility] Free T4 (Free Thyroxine)on 0 12-02-2024 Free T4 [Mass/Vol] 0.99 ng/dL Normal 0.61-1.12 [facility] Comment on above: Performed By: #### L IPID, T4F, TSH3 wRFLX, [id number] #### [facility] [address] [id number] [facility] Lipid Panelon 12-02-2024 Cholesterol [Mass/Vol] 153 mg/dL Normal 140-200 [facility] Comment on above: Result Comment: Chol less than 200 mg/dl low risk Chol 201-239 mg/dl borderline risk Chol 240 mg/dl and greater high risk Performed By: #### L IPID, T4F, TSH3 wRFLX, [id number] #### [facility] [address] [id number] [facility] Cholesterol in HDL [Mass/Vol] 37 mg/dL Normal 23-92 [facility] Comment on above: Result Comment: HDL CHOL ATP-III CLASSIFICATION Cardiovascular Risk HDL > or equal to 60 mg/dL LOW HDL < 40 mg/dL HIGH Performed By: #### L IPID, T4F, TSH3 wRFLX, [id number] #### [facility] [address] [id number] [facility] Cholesterol.total/Chol esterol in HDL [Mass ratio] 4.1 {ratio} Normal <5.0 [facility] Comment on above: Performed By: #### L IPID, T4F, TSH3 wRFLX, [id number] #### [facility] [address] [id number] [facility] LDL Cholesterol,Calculated 89 mg/dL Normal 0-100 [facility] Comment on above: Result Comment: LDL ATP III CLASSIFICATION LDL less than 100 mg/dL Optimal LDL 100-129 mg/dL Near or above optimal LDL 130-159 mg/dL Borderline high LDL 160-189 mg/dL High LDL greater than 189 mg/dL Very high Performed By: #### L IPID, T4F, TSH3 wRFLX, [id number] #### [facility] [address] Triglyceride w/Reflex 137 mg/dL Normal 0-149 [facility] Comment on above: Result Comment: TRIG ATP III CLASSIFICATION TRIG less than 150 mg/dL Normal TRIG 150-199 mg/dL Borderline high TRIG 200-500 mg/dL High TRIG greater than 500 mg/dL Very high Standard traceable to the Center for Disease Conrtrol and Prevention (CDC) test method. Performed By: #### L IPID, T4F, TSH3 wRFLX, [id number] #### [facility] [address] [place] [address] VLDL CHOLESTEROL 27 mg/dL Normal [facility] Comment on above: Performed By: #### L IPID, T4F, TSH3 wRFLX, [id number] #### [address] Serum or plasma total choles terol/high density lipoprotein (HDL) cholesterol mass ratOrdered By: Jaquan Babin on 12-02-2024 Cholesterol.total/Chol esterol in HDL [Mass ratio] Serum or plasma total cholesterol/high density lipoprotein (HDL) cholesterol mass rat <5.0 [facility] Thyroid Stim Hormone w/Rflxo n 12-02-2024 Thyroid Stim Hormone w/Rflx 0.34 u[iU]/mL Low 0.45-5.33 [facility] Comment on above: Performed By: #### L IPID, T4F, TSH3 wRFLX, [id number] #### [facility] [address] Thyrotropin [Units/volume] i n Serum or PlasmaOrdered By: Jaquan Babin on 12-02-2024 TSH Qn Thyrotropin [Units/v olume] in Serum or Plasma Low 0.45-5.33 [facility] Thyroxine (T4) free [Mass/vo lume] in Serum or PlasmaOrdered By: Jaquan Babin on 12-02-2024 Free T4 [Mass/Vol] Thyroxine (T4) free [Mass/volume] in Serum or Plasma 0.61-1.12 [facility] Triglyceride [Mass/volume] i n Serum or PlasmaOrdered By: Jaquan Babin on 12-02-2024 Triglyceride [Mass/Vol] Triglyceride [Mass/volume] in Serum or Plasma 0-149 [facility] Comment on above: TRIG ATP III CLASSIF ICATIONTRIG less than 150 mg/dL NormalTRIG 150-199 mg/dL Borderline highTRIG 200-500 mg/dL High TRIG greater than 500 mg/dL Very highStandard traceable to the Center for Disease Conrtrol and Prevention (CDC) test method. Vitamin D 25 Hydroxy Totalon 12-02-2024 Vitamin D 25 Hydroxy Total 23.5 ng/mL Low 30-100 [facility] Comment on above: Result Comment: AMRCK MIN D STATUS 25([place])VITAMIN D RANGE (ng/mL) Deficient <20 Insufficient 20 to <30 Sufficient 30 to 100 Reference: Rhiannon Mata, Uli CLEMENTE, et al. Evaluation,treatment, and prevention of vitamin D deficiency; an Endocrine Society clinical practice guideline. JCEM. 2010; 96(7):1911-30. PERFORMED BY: [place] [address] PATHOLOGIST MESMERIST DAIANA STRANGE M.D. Performed By: #### L IPID, T4F, TSH3 wRFLX, [id number] #### [address] Vitamin D+Metabolites [Mass/ volume] in Serum or PlasmaOrdered By: Jaquan Babin on 12-02-2024 Vitamin D+Metabolites [Mass/Vol] Vitamin D+Metabolites [Mass/volume] in Serum or Plasma Low 30-100 [facility] Comment on above: VITAMIN D STATUS 25( [place])VITAMIN D RANGE (ng/mL) Deficient <20 Insufficient 20 to <30Sufficient 30 to 100Reference: Rhiannon Mata, Uli CLEMENTE, et al. Evaluation,treatment, and prevention of vitamin D deficiency; an Endocrine Society clinical practice guideline. JCEM. 2010; 96(7):1911-30. Office Visiton 11-29-2024 Follow-up visit [id number] Dariel Apodaca 1965 F Date Provider Department Center 11/29/2024 [id number], ADAM ALECIA [facility] Family History Problem Relation Age of Onset Alzheimer's disease Father Family Status - Relation Status Age at Mother Alive Father Level of Service:[address] [place] OFFICE/OUTPATIENT ESTABLISHED LOW MDM 20 MIN Normal [facility] EMG 1 Extremeityon Cts left minimal [facility] NVC 5-6 Nerveson 11-28-2024 Cts left minimal [facility] NVC 5-6 NervesOrdered By: Roberto Vargas on 11-28-2024 [facility] Work Phone: Urine Cultureon 11-26-2024 Bacteria identified Cx Nom (U) ORGANISM: Escherichia coli (O:ESCCOL) Burden Count <10,000 Aerobic VALENTE Charge (NMIC56) SUSCEPTIBILITY [...] RESISTANT TO ALL B-LACTAM DRUGS. PERFORMED BY: [place] [address] PATHOLOGIST MESMERIST DAIANA STRANGE M.D. Normal [facility] Comment on above: Performed By: #### C UU #### [address] Urine cultureOrdered By: French Amaya on 11-26-2024 Bacteria identified Cx Nom (U) Escherichia coli Abnormal [facility] XR Hand - left 3 [facility] Result: Multiple views of left hand showed fracture through the base of the 5th metacrpal to be in unchanged position and alignment with slight increase in callus formation compared to prior x-rays. There was no other acute bony process including but not limited to fracture and/or dislocation. Impression: Healing fracture base of left 5th metacarpal [facility] XR Hand - left 3 ViewsOrdere d By: Jr. Teague on 10-08-2024 [facility] Work Phone: XR Hand - left 3 [...] Healing fracture base of left 5th metacarpal [facility] XR Hand - [...] Impression: Healing fracture inferior pole right patella. [facility] No Panel Informationon 09-16 Radiology Study observation (narrative) [facility] XR Hand - left 3 [facility] Result: Xrays AP, LAT and OBL of the left hand performed on August 19, 2024 demonstrates callus formation at the base of the 5th Metacarpal. No other fractures noted, no swelling Impression Healing base of 5th MC fracture. Zulema Mackay [facility] [place] Radiology Study observation (narrative) [facility] [...] Unremarkable xrays of the right elbow [facility] Knee - right 3 [facility] Result: Xrays AP, LAT and sunrise view of the right knee performed on August 07, 2024 is unremarkable for patella fracture, the patella fracture that was seen on CT scan is not visible on todays xrays. Impression Suspected healing non displaced patella fracture [facility] [place] XR Knee - right 3 ViewsOrder ed [...] Healing 5th MC base fracture. Zulema Mackay [facility] [place] XR Hand - left 3 ViewsOrdere d [...] Study observation (narrative) [facility] CNOVon 06-13-2024 CNOV Office Visit (NUMBHT ) EMIGDIO APODACA ([id number]) 1965 F [facility] Date Time Provider Department 06/13/24 12:30 PM ZOILA MONAE During your visit today, we recorded the following information about you: Pulse Blood pressure Weight Height 74/minute 107/77 46.3 kg 1.523 m Zoila Monae MD 06/13/2024 1:41 PM Signed [facility] for General Neurology Follow up/ Established patient visit Individuals who were included in, or assisted with the encounter were: Emigdio Rodriguezegan Zoila Monae MD Chief Complaint/Issues: Emigdio Apodaca is a 58 year old female seen in the [facility] for General Neurology for: Staring spells. Most [...] that she can have it done in [place] but she would rather come here. She [...] carbonate (CALT (more content not included)... Normal [facility] EMIGDIO APODACA ([id number]) 1965 F [place] Date Time Provider Department [...] Encounter Status:Closed by IVETH SALAZAR on 09/19/24 [facility] CNOVon 03-06-2024 CNOV Office Visit (NUMBHT ) EMIGDIO APODACA ([id number]) 1965 F [place] Date Time Provider Department 03/06/24 2:00 PM ZOILA MONAE During your visit today, we recorded the following information about you: Temperature Pulse Blood pressure Weight 97.2 degrees 106/minute 101/68 45 kg Height 1.535 m Zoila Monae MD 03/06/2024 3:39 PM Signed [facility] for General Neurology New Patient Evaluation Consulting Provider: Tony Amaya [address] [facility] [address] The patient presents with a chief complaint [...] year old Rh female seen in the [facility] for General Neurology for: Cognitive evaluation and [...] for low IQ. She worked in a [employer] shop and only worked 6 months. She [...] Gait Arises (more content not included)... Normal [facility] CBC AUTO DIFFon 01-07-2023 BASO # 0.0 103/ul Normal 0.0-0.1 [facility] Comment on above: Performed By: #### C BC ####[facility] [address] [address]Dr. Shahbaz Rogel Basophils/100 WBC (Bld) 0.3 % Normal 0.2-2.0 [facility] Comment on above: Performed By: #### C BC ####[facility] [address] [address]Dr. Shahbaz Rogel EO # 0.0 103/ul Normal 0.0-0.7 [facility] Comment on above: Performed By: #### C BC ####[facility] [address] [address]Dr. Shahbaz Rogel Eosinophils/100 WBC (Bld) 0.0 % Critically low 0.9-7.0 [facility] Comment on above: Performed By: #### C BC ####[facility] [address] [address]Dr. Shahbaz Rogel Erythrocyte distribution width (RBC) [Ratio] 13.5 % Normal 11.0-15.0 [facility] Comment on above: Performed By: #### C BC ####[facility] [address] [address]Dr. Shahbaz Rogel Hematocrit (Bld) [Volume fraction] 36.4 % Normal 36.0-48.0 [facility] Comment on above: Performed By: #### C BC ####[facility] [address] [place] [id number]. Shahbaz Rogel Hemoglobin (Bld) [Mass/Vol] 11.6 g/dL Critically low 12.0-16.0 [facility] Comment on above: Performed By: #### C BC ####[facility] [address] [place] [id number]. Shahbaz Rogel IG # 0.06 10e3/ul Critically high 0.00-0.03 [facility] Comment on above: Performed By: #### C BC ####[facility] [address] [address]Dr. Shahbaz Rogel IG % 1.5 % Critically high 0.0-0.5 [facility] Comment on above: Performed By: #### C BC ####[facility] [address] [address]Dr. Shahbaz Rogel LYMPH # 0.7 103/ul Critically low 1.2-3.8 [facility] Comment on above: Performed By: #### C BC ####[facility] [address] [address]Dr. Shahbaz Rogel Lymphocytes/100 WBC (Bld) 16.6 % Critically low 20.5-60.0 [facility] Comment on above: Performed By: #### C BC ####[facility] [address]vgfwzcp[address] [place] [address]Dr. Shahbaz Rogel MANUAL DIFF REQ NO Normal [facility] Comment on above: Performed By: #### C BC ####[facility] Oekrmcuqtx[address] [place], [place] [address]Dr. Shahbaz Rogel MCH (RBC) [Entitic mass] 27.6 pg Normal 26.7-34.0 [facility] Comment on above: Performed By: #### C BC ####[facility] Fzpiuixnmc[address] [place], [place] [address]Dr. Shahbaz Rogel MCHC (RBC) [Mass/Vol] 31.9 g/dL Normal 29.9-35.2 [facility] Comment on above: Performed By: #### C BC ####[facility] Tawzrehpbz[address] [place] [id number]. Shahbaz Rogel MCV (RBC) [Entitic vol] 86.5 fL Normal 81.0-99.0 [facility] Comment on above: Performed By: #### C BC ####[facility] G[address]mephonyp[address] [place] [id number]. Shahbaz Rogel MONO # 0.2 103/ul Critically low 0.3-0.8 [facility] Comment on above: Performed By: #### C BC ####[facility] Igbeedauhp[address] [place] [address]Dr. Shahbaz Rogel Monocytes/100 WBC (Bld) 5.0 % Normal 1.7-12.0 [facility] Comment on above: Performed By: #### C BC ####[facility] Bnlrfsmkyi[address] [place], [place] [address]Dr. Shahbaz Rogel NEUT # 3.1 103/ul Normal 1.4-6.5 [facility] Comment on above: Performed By: #### C BC ####[facility] Asjdtygzic[address] [place], [place] [address]Dr. Shahbaz Rogel Neutrophils/100 WBC (Bld) 76.6 % Critically high 43.0-75.0 [facility] Comment on above: Performed By: #### C BC ####[facility] Kbimsbwtez18[address] [place], [place] [address]Dr. Shahbaz Rogel Platelet mean volume (Bld) [Entitic vol] 9.9 fL Normal 9.5-13.5 [facility] Comment on above: Performed By: #### C BC ####[facility] Tvgbzh[address] [place], [place] [id number]. Shahbaz Rogel PLT 194 103/ul Normal 150-450 [facility] Comment on above: Performed By: #### C BC ####[facility] Siizvwuwdi7[address] [place], [place] [address]Dr. Shahbaz Juan F RBC 4.21 106/ul Normal 4.20-5.40 [facility] Comment on above: Performed By: #### C BC ####[facility] Qhghwrszsq59[address] [place] [address]Dr. Shahbaz Rogel WBC 4.0 103/ul Normal 4.0-11.0 [facility] Comment on above: Performed By: #### C BC ####[facility] Axrpgfgjyl88[address] [place] [address]Dr. Shahbaz Rogel PROF CHEM 8 (BAS METB)on Anion gap [Moles/Vol] 9.5 mmol/L Normal [facility] Comment on above: Performed By: #### B MP ####[facility] Nuourpfdlv[address] [place], [place] [address]Dr. Shahbaz Rogel Calcium [Mass/Vol] 8.8 mg/dL Normal 8.5-10.1 [facility] Comment on above: Performed By: #### B MP ####[facility] Awkobhpbun4680[address] [place], [place] [address]Dr. Shahbaz Rogel Chloride [Moles/Vol] 106 mmol/L Normal 98-107 [facility] Comment on above: Performed By: #### B MP ####[facility] Jcfyfmyhmd4[address] [place], [place] [address]Dr. Shahbaz Rogel CO2 [Moles/Vol] 29.6 mmol/L Normal 21.0-32.0 [facility] Comment on above: Performed By: #### B MP ####[facility] Gfyltosyae94[address] [place], [place] [address]Dr. Shahbaz Rogel Creatinine [Mass/Vol] 0.80 mg/dL Normal 0.55-1.02 [facility] Comment on above: Performed By: #### B MP ####[facility] Hurndrqkwc[address] [place], [place] [address]Dr. Shahbaz Rogel EGFR-AF PORTUGUESE >60 Normal >=60 [facility] Comment on above: Performed By: #### B MP ####[facility] Uruthnyila9[address] [place], [place] [address]Dr. Shahbaz Rogel EGFR-NON AF PORTUGUESE >60 Normal >=60 [facility] Comment on above: Performed By: #### B MP ####[facility] Dhnlvaifeg4024[address] [place], [place] [address]Dr. Shahbaz Juan F Glucose [Mass/Vol] 137 mg/dL Critically high 74-106 [facility] Comment on above: Performed By: #### B MP ####[facility] Ancudsjjix2663[address] [place], [place] [address]Dr. Shahbaz Rogel Potassium [Moles/Vol] 4.1 mmol/L Normal 3.5-5.1 [facility] Comment on above: Performed By: #### B MP ####[facility] Kpmfkcwlys8301[address] [place], [place] [address]Dr. Lilajarrod Rogel Sodium [Moles/Vol] 141 mmol/L Normal 136-145 [facility] Comment on above: Performed By: #### B MP ####[facility] Yijludlkop2420[address] [place], [place] [address]Dr. Shahbaz Juan F Urea nitrogen [Mass/Vol] 18.0 mg/dL Normal 7.0-18.0 [facility] Comment on above: Performed By: #### B MP ####[facility] Ouqnamdrdx039[address] [place], [place] [address]Dr. Shahbaz Rogel Urea nitrogen/Creatinine [Mass ratio] 22.5 mg/mg Normal [facility] Comment on above: Performed By: #### B MP ####[facility] Wzovmdtjkz67[address] [place], [place] [address]Dr. Shahbaz Juan F CBC AUTO DIFFon 01-06-2023 BASO # 0.0 103/ul Normal 0.0-0.1 [facility] Comment on above: Performed By: #### C BC ####[facility] Ehssmigwnh15[address] [place], [place] [address]Dr. Shahbaz Rogel Basophils/100 WBC (Bld) 0.0 % Critically low 0.2-2.0 [facility] Comment on above: Performed By: #### C BC ####[facility] Vampfwzpxx3333[address] [place], [place] [address]Dr. Shahbaz Rogel EO # 0.0 103/ul Normal 0.0-0.7 [facility] Comment on above: Performed By: #### C BC ####[facility] Gijldeyydg[address] [place], [place] [address]Dr. Shahbaz Rogel Eosinophils/100 WBC (Bld) 0.0 % Critically low 0.9-7.0 [facility] Comment on above: Performed By: #### C BC ####[facility] Mrhjemepvn3957[address] [place], [place] [address]Dr. Shahbaz Rogel Erythrocyte distribution width (RBC) [Ratio] 13.8 % Normal 11.0-15.0 [facility] Comment on above: Performed By: #### C BC ####[facility] Swsvervmfp5154[address] [place], [place] [address]Dr. Shahbaz Rogel Hematocrit (Bld) [Volume fraction] 36.9 % Normal 36.0-48.0 [facility] Comment on above: Performed By: #### C BC ####[facility] Kjbplbzkte004[address] [place], [place] [address]Dr. Shahbaz Rogel Hemoglobin (Bld) [Mass/Vol] 11.8 g/dL Critically low 12.0-16.0 [facility] Comment on above: Performed By: #### C BC ####[facility] Gjqaffjfte3139[address] [place], [place] [address]Dr. Shahbaz Rogel IG # 0.04 10e3/ul Critically high 0.00-0.03 [facility] Comment on above: Performed By: #### C BC ####[facility] Rkgiqvxtvr3120[address] [place], [place] [address]Dr. Shahbaz Rogel IG % 1.1 % Critically high 0.0-0.5 [facility] Comment on above: Performed By: #### C BC ####[facility] Zdtlvusfhf6214[address] [place], [place] [address]Dr. Shahbaz Rogel LYMPH # 0.5 103/ul Critically low 1.2-3.8 [facility] Comment on above: Performed By: #### C BC ####[facility] Cywpnquakd5747[address] [place], [place] [address]Dr. Shahbaz Rogel Lymphocytes/100 WBC (Bld) 13.9 % Critically low 20.5-60.0 [facility] Comment on above: Performed By: #### C BC ####[facility] [address]tenxf[address] [place] [id number]. Shahbaz Rogel MANUAL DIFF REQ NO Normal [facility] Comment on above: Performed By: #### C BC ####[facility] Sgjmdvrnsq3176 [place] [phone]. Shahbaz Rogel MCH (RBC) [Entitic mass] 27.8 pg Normal 26.7-34.0 [facility] Comment on above: Performed By: #### C BC ####[facility] Djhqtvyeok[address] [place] [address]Dr. Shahbaz Rogel MCHC (RBC) [Mass/Vol] 32.0 g/dL Normal 29.9-35.2 [facility] Comment on above: Performed By: #### C BC ####[facility] Yuthiaqswt80[address] [place] [address]Dr. Shahbaz Rogel MCV (RBC) [Entitic vol] 86.8 fL Normal 81.0-99.0 [facility] Comment on above: Performed By: #### C BC ####[facility] Jzvijqlihi27[address] [place] [id number]. Shahbaz Juan F MONO # 0.1 103/ul Critically low 0.3-0.8 [facility] Comment on above: Performed By: #### C BC ####[facility] Mzqcwaiipb[address] [place], [place] [address]Dr. Shahbaz Juan F Monocytes/100 WBC (Bld) 3.7 % Normal 1.7-12.0 [facility] Comment on above: Performed By: #### C BC ####[facility] Lyuzqttwwb6928 [place] [phone]. Shahbaz Rogel NEUT # 3.1 103/ul Normal 1.4-6.5 [facility] Comment on above: Performed By: #### C BC ####[facility] Lgmkddahcm8[address] [place], [place] [address]Dr. Shahbaz Rogel Neutrophils/100 WBC (Bld) 81.3 % Critically high 43.0-75.0 [facility] Comment on above: Performed By: #### C BC ####[facility] Ccitpsokmm2401 [place] [phone]. Lilajarrod Juan F Platelet mean volume (Bld) [Entitic vol] 9.8 fL Normal 9.5-13.5 [facility] Comment on above: Performed By: #### C BC ####[facility] Fvueythflo[address] [place] [phone]. Shahbaz Rogel PLT 184 103/ul Normal 150-450 [facility] Comment on above: Performed By: #### C BC ####[facility] Dmsjtxxtic8[address] [place] [address]Dr. Shahbaz Rogel RBC 4.25 106/ul Normal 4.20-5.40 [facility] Comment on above: Performed By: #### C BC ####[facility] Ijnnwukcel[address] [place] [address]Dr. Shahbaz Rogel WBC 3.8 103/ul Critically low 4.0-11.0 [facility] Comment on above: Performed By: #### C BC ####[facility] Ljczbcegyw[address] [place], [place] [address]Dr. Shahbaz Rogel PROF CHEM 8 (BAS METB)on Anion gap [Moles/Vol] 9.2 mmol/L Normal [facility] Comment on above: Performed By: #### B MP ####[facility] Vedmfzvasj3[address] [place], [place] [address]Dr. Shahbaz Rogel Calcium [Mass/Vol] 8.6 mg/dL Normal 8.5-10.1 [facility] Comment on above: Performed By: #### B MP ####[facility] Hrzimflorg[address] [place] [address]Dr. Shahbaz Rogel Chloride [Moles/Vol] 107 mmol/L Normal 98-107 [facility] Comment on above: Performed By: #### B MP ####[facility] Njxwefbuyj1720 [place] [address]Dr. Shahbaz Rogel CO2 [Moles/Vol] 29.3 mmol/L Normal 21.0-32.0 [facility] Comment on above: Performed By: #### B MP ####[facility] Zdxjtxettl3786 [place] [phone]. Shahbaz Rogel Creatinine [Mass/Vol] 0.79 mg/dL Normal 0.55-1.02 [facility] Comment on above: Performed By: #### B MP ####[facility] Gfbxywgkkr9089 [place] [phone]. Shahbaz Rogel EGFR-AF PORTUGUESE >60 Normal >=60 [facility] Comment on above: Performed By: #### B MP ####[facility] Tuohiihskm7[address] [place] [address]Dr. Shahbaz Rogel EGFR-NON AF PORTUGUESE >60 Normal >=60 [facility] Comment on above: Performed By: #### B MP ####[facility] Teinxxkqtg225[address] [place], [place] [address]Dr. Shahbaz Rogel Glucose [Mass/Vol] 159 mg/dL Critically high 74-106 [facility] Comment on above: Performed By: #### B MP ####[facility] Ndkyyrlzyc26[address] [place], [place] [address]Dr. Lilajarrod Juan F Potassium [Moles/Vol] 3.5 mmol/L Normal 3.5-5.1 [facility] Comment on above: Performed By: #### B MP ####[facility] Ycgyonfhbz23[address] [place], [place] [address]Dr. Lilajarrod Juan F Sodium [Moles/Vol] 142 mmol/L Normal 136-145 [facility] Comment on above: Performed By: #### B MP ####[facility] Umtrbrpfkf[address] [place], [place] [address]Dr. Lilajarrod Juan F Urea nitrogen [Mass/Vol] 21.0 mg/dL Critically high 7.0-18.0 [facility] Comment on above: Performed By: #### B MP ####[facility] Wthltusbyv3418[address] [place], [place] [address]Dr. Lilajarrod Juan F Urea nitrogen/Creatinine [Mass ratio] 26.6 mg/mg Normal [facility] Comment on above: Performed By: #### B MP ####[facility] Mrnenfyomy94[address] [place], [place] [address]Dr. Shahbaz Juan F XR CHEST 2 Von 01-06-2023 XR CHEST 2 V Normal [facility] CBC AUTO DIFFon 01-05-2023 BASO # 0.0 103/ul Normal 0.0-0.1 [facility] Comment on above: Performed By: #### C BC ####[facility] Hatajrcvzk[address] [place] [address]Dr. Shahbaz Rogel Basophils/100 WBC (Bld) 0.2 % Normal 0.2-2.0 [facility] Comment on above: Performed By: #### C BC ####[facility] Awggyzseub7834 [place] [address]Dr. Shahbaz Rogel EO # 0.0 103/ul Normal 0.0-0.7 [facility] Comment on above: Performed By: #### C BC ####[facility] Sjqicglrax0925 [place] [address]Dr. Shahbaz Rogel Eosinophils/100 WBC (Bld) 0.0 % Critically low 0.9-7.0 [facility] Comment on above: Performed By: #### C BC ####[facility] Skqneizudt69[address] [place], [place] [address]Dr. Lilajarrod Rogel Erythrocyte distribution width (RBC) [Ratio] 13.6 % Normal 11.0-15.0 [facility] Comment on above: Performed By: #### C BC ####[facility] Qmoqizyyoq8133[address] [place], [place] [address]Dr. Shahbaz Rogel Hematocrit (Bld) [Volume fraction] 36.6 % Normal 36.0-48.0 [facility] Comment on above: Performed By: #### C BC ####[facility] Umsrsemilv[address] [place] [address]Dr. Shahbaz Rogel Hemoglobin (Bld) [Mass/Vol] 11.6 g/dL Critically low 12.0-16.0 [facility] Comment on above: Performed By: #### C BC ####[facility] Ykvkammysr4684 [place] [address]Dr. Shahbaz Rogel IG # 0.03 10e3/ul Normal 0.00-0.03 [facility] Comment on above: Performed By: #### C BC ####[facility] Obctxxsmox1669 [place] [address]Dr. Shahbaz Rogel IG % 0.5 % Normal 0.0-0.5 [facility] Comment on above: Performed By: #### C BC ####[facility] Mknaktzwxx4227 [place] [address]DrChen Rogel LYMPH # 0.6 103/ul Critically low 1.2-3.8 [facility] Comment on above: Performed By: #### C BC ####[facility] Fwogvqyftn94[address] [place], [place] [address]Dr. Shahbaz Rogel Lymphocytes/100 WBC (Bld) 10.7 % Critically low 20.5-60.0 [facility] Comment on above: Performed By: #### C BC ####[facility] Vxprpfadio754[address] [place], [place] [address]Dr. Shahbaz Rogel MANUAL DIFF REQ NO Normal [facility] Comment on above: Performed By: #### C BC ####[facility] Uiqmclclqu[address] [place], [place] [address]Dr. Lilajarrod Rogel MCH (RBC) [Entitic mass] 27.7 pg Normal 26.7-34.0 [facility] Comment on above: Performed By: #### C BC ####[facility] Hmzpegnlar4[address] [place], [place] [address]Dr. Lilajarrod Rogel MCHC (RBC) [Mass/Vol] 31.7 g/dL Normal 29.9-35.2 [facility] Comment on above: Performed By: #### C BC ####[facility] Ammxxterhv[address] [place], [place] [address]DrChen Rogel MCV (RBC) [Entitic vol] 87.4 fL Normal 81.0-99.0 [facility] Comment on above: Performed By: #### C BC ####[facility] Wczatdavrz97[address] [place], [place] [address]DrChen Rogel MONO # 0.1 103/ul Critically low 0.3-0.8 [facility] Comment on above: Performed By: #### C BC ####[facility] Jqdcngkthj3590 [place] [phone]. Shahbaz Rogel Monocytes/100 WBC (Bld) 2.5 % Normal 1.7-12.0 [facility] Comment on above: Performed By: #### C BC ####[facility] Icyryrjzyt5001 [place] [phone]. Shahbaz Rogel NEUT # 4.8 103/ul Normal 1.4-6.5 [facility] Comment on above: Performed By: #### C BC ####[facility] Ycymqmjaxq3098 [place] [phone]. Shahbaz Rogel Neutrophils/100 WBC (Bld) 86.1 % Critically high 43.0-75.0 [facility] Comment on above: Performed By: #### C BC ####[facility] Idbcvlieuo7338 [place] [address]Dr. Shahbaz Rogel Platelet mean volume (Bld) [Entitic vol] 10.0 fL Normal 9.5-13.5 [facility] Comment on above: Performed By: #### C BC ####[facility] Eshynadecy4865 [place] [phone]. Shahbaz Rogel PLT 193 103/ul Normal 150-450 [facility] Comment on above: Performed By: #### C BC ####[facility] Yrltidkpnx3785 [place] [phone]. Shahbaz Rogel RBC 4.19 106/ul Critically low 4.20-5.40 [facility] Comment on above: Performed By: #### C BC ####[facility] Bsuhyphpdb6460 [place] [phone]. Shahbaz Rogel WBC 5.6 103/ul Normal 4.0-11.0 [facility] Comment on above: Performed By: #### C BC ####[facility] Ynsdobehwg8788 [place] [phone] Lilajarrod Rogel PROF CHEM 8 (BAS METB)on Anion gap [Moles/Vol] 12.7 mmol/L Normal [facility] Comment on above: Performed By: #### B MP ####[facility] Xkjlelrmwu33[address] [place] [address]Dr. Shahbaz Rogel Calcium [Mass/Vol] 8.8 mg/dL Normal 8.5-10.1 [facility] Comment on above: Performed By: #### B MP ####[facility] Octwvwxhnl[address] [place] [address]Dr. Shahbaz Rogel Chloride [Moles/Vol] 107 mmol/L Normal 98-107 [facility] Comment on above: Performed By: #### B MP ####[facility] Qnogljxtrv2115 [place] [address]Dr. Shahbaz Rogel CO2 [Moles/Vol] 26.9 mmol/L Normal 21.0-32.0 [facility] Comment on above: Performed By: #### B MP ####[facility] Iwtjyhjwnd64[address] [place], [place] [address]Dr. Shahbaz Rogel Creatinine [Mass/Vol] 0.81 mg/dL Normal 0.55-1.02 [facility] Comment on above: Performed By: #### B MP ####[facility] Npnoiatcms1446[address] [place], [place] [address]Dr. Shahbaz Rogel EGFR-AF PORTUGUESE >60 Normal >=60 [facility] Comment on above: Performed By: #### B MP ####[facility] Kovoarrtqk[address] [place] [address]Dr. Shahbaz Rogel EGFR-NON AF PORTUGUESE >60 Normal >=60 [facility] Comment on above: Performed By: #### B MP ####[facility] Lqtncodkag2735 [place] [address]Dr. Shahbaz Rogel Glucose [Mass/Vol] 144 mg/dL Critically high 74-106 [facility] Comment on above: Performed By: #### B MP ####[facility] Bygcwdhplh1248 [place] [address]Dr. Shahbaz Rogel Potassium [Moles/Vol] 3.6 mmol/L Normal 3.5-5.1 [facility] Comment on above: Performed By: #### B MP ####[facility] Dmjfxuoomw7957 [place] [address]Dr. Shahbaz Rogel Sodium [Moles/Vol] 143 mmol/L Normal 136-145 [facility] Comment on above: Performed By: #### B MP ####[facility] Nsqypvseld9958 [place] [address]Dr. Shahbaz Rogel Urea nitrogen [Mass/Vol] 20.0 mg/dL Critically high 7.0-18.0 [facility] Comment on above: Performed By: #### B MP ####[facility] Qvzycxmrkc8215[address] [place], [place] [address]Dr. Shahbaz Rogel Urea nitrogen/Creatinine [Mass ratio] 24.7 mg/mg Normal [facility] Comment on above: Performed By: #### B MP ####[facility] Fykmdljdwa3576[address] [place], [place] [address]Dr. Shahbaz Juan F CBC W MANUAL DIFFon 01-05-20 23 ATYPICAL LYMPH # Normal [facility] Comment on above: Performed By: #### C BCMAN ####[facility] Imtltctasr25[address] [place], [place] [address]Dr. Shahbaz Rogel ATYPICAL LYMPH % Normal [facility] Comment on above: Performed By: #### C BCMAN ####[facility] Oscynmkgrz8933[address] [place], [place] [address]Dr. Shahbaz Rogel BAND # 0.0 103/ul Normal 0.0-0.3 [facility] Comment on above: Performed By: #### C BCMAN ####[facility] Lktizffsqv9236[address] [place], [place] [address]Dr. Shahbaz Rogel BAND % 0 % Normal 0-5 [facility] Comment on above: Performed By: #### C BCMAN ####[facility] Vgondlrlje1286[address] [place], [place] [address]Dr. Lilajarrod Rogel BASOM # 0.00 103/ul Normal 0.00-0.10 [facility] Comment on above: Performed By: #### C BCMAN ####[facility] Sqkyksehhp7530[address] [place], [place] [address]Dr. Shahbaz Rogel BASOM % 0.0 % Critically low 0.2-2.0 [facility] Comment on above: Performed By: #### C BCMAN ####[facility] Gzjymppqdo74[address] [place] [address]Dr. Shahbaz Rogel BLAST # Normal [facility] Comment on above: Performed By: #### C BCMAN ####[facility] Znhsktampn3355 [place] [address]Dr. Shahbaz Rogel BLAST % Normal [facility] Comment on above: Performed By: #### C BCMAN ####[facility] Zsmfuvakyz4284 [place] [address]Dr. Shahbaz Rogel CORRECTED WBC Normal 4.0-11.0 [facility] Comment on above: Performed By: #### C BCMAN ####[facility] Bqdgjnnitf26[address] [place], [place] [address]Dr. Shahbaz Rogel EOS # 0.00 103/ul Normal 0.00-0.70 [facility] Comment on above: Performed By: #### C BCMAN ####[facility] Iyxsabcuag5[address] [place], [place] [address]Dr. Shahbaz Rogel EOS% 0.0 % Critically low 0.9-7.0 [facility] Comment on above: Performed By: #### C BCMAN ####[facility] Zokkxdjuyu4[address] [place], [place] [address]Dr. Shahbaz Rogel HCT 36.5 % Normal 36.0-48.0 [facility] Comment on above: Performed By: #### C BCMAN ####[facility] Qmdkqgeiri1740[address] [place], [place] [address]Dr. Shahbaz Rogel HGB 11.8 g/dl Critically low 12.0-16.0 [facility] Comment on above: Performed By: #### C BCMAN ####[facility] Bfxymvgtts7666[address] [place], [place] [address]Dr. Shahbaz Rogel LYMPHM # 0.42 103/ul Critically low 1.20-3.80 [facility] Comment on above: Performed By: #### C BCMAN ####[facility] Fhbxltykpd4859 [place] [id number]. Shahbaz Rogel LYMPHM% 12.0 % Critically low 20.5-60.0 [facility] Comment on above: Performed By: #### C CAIN ####[facility] Ivicnynmra4439 [place] [address]Dr. Shahbaz Rogel MCH 28.0 pg Normal 26.7-34.0 [facility] Comment on above: Performed By: #### C CAIN ####[facility] Knbzcbdsje54[address] [place] [address]Dr. Shahbaz Rogel MCHC 32.3 g/dl Normal 29.9-35.2 [facility] Comment on above: Performed By: #### C CAIN ####[facility] Disaujzopt40[address] [place], [place] [address]Dr. Shahbaz Rogel MCV 86.7 fL Normal 81.0-99.0 [facility] Comment on above: Performed By: #### C CAIN ####[facility] Hniigdixcc[address] [place], [place] [address]Dr. Shahbaz Rogel METAMYELOCYTE # Normal [facility] Comment on above: Performed By: #### C CANI ####[facility] Ptvkfdumch[address] [place], [place] [address]Dr. Shahbaz Rogel METAMYELOCYTE % Normal [facility] Comment on above: Performed By: #### C CAIN ####[facility] Ifvdbatw[address] [place], [place] [address]Dr. Shahbaz Rogel MONOM# 0.07 103/ul Critically low 0.30-0.80 [facility] Comment on above: Performed By: #### C CAIN ####[facility] [address] [place] [address]Dr. Shahbaz Rogel MONOM% 2.0 % Normal 1.7-12.0 [facility] Comment on above: Performed By: #### C CAIN ####[facility] [address]qmimilzkt[address] [place] [address]Dr. Shahbaz Rogel MPV 9.9 fL Normal 9.5-13.5 [facility] Comment on above: Performed By: #### C BCBRICE ####[facility] Fnbrtvtjzg9[address] [place] [phone]. Shahbaz Rogel MYELOCYTE # Normal [facility] Comment on above: Performed By: #### C CAIN ####[facility] Ruxeozwmir[address] [place] [phone]. Shahbaz Rogel MYELOCYTE % Normal [facility] Comment on above: Performed By: #### C BCBRICE ####[facility] Nwxlvffmma47[address] [place] [phone]. Shahbaz Rogel NRBC Normal [facility] Comment on above: Performed By: #### C CAIN ####[facility] Xftqyvadmh[address] [place] [address]Dr. Shahbaz Rogel PLT 178 103/ul Normal 150-450 [facility] Comment on above: Performed By: #### C CAIN ####[facility] Eyrhbctbho58[address] [place] [phone]. Shahbaz Rogel RBC 4.21 106/ul Normal 4.20-5.40 [facility] Comment on above: Performed By: #### C CAIN ####[facility] Qutrrqaycj0[address] [place] [phone]. Shahbaz Rogel RDW 13.2 % Normal 11.0-15.0 [facility] Comment on above: Performed By: #### C CAIN ####[facility] Lfsfksaqif[address] [place], [place] [address]Dr. Shahbaz Rogel SEG # 3.01 103/ul Normal 1.40-6.50 [facility] Comment on above: Performed By: #### C CAIN ####[facility] Dsijfexnad1169 [place] [phone]. Shahbaz Rogel SEG % 86.0 % Critically high 43.0-75.0 [facility] Comment on above: Performed By: #### C CAIN ####[facility] Ovkocjxwrn7[address] [place] [phone]. Shahbaz Rogel WBC 3.5 103/ul Critically low 4.0-11.0 [facility] Comment on above: Performed By: #### C BCMAN ####[facility] Wtcttlidev[address] [place] [address]Dr. Shahbaz Rogel PROF CHEM 8 (BAS METB)on Anion gap [Moles/Vol] 10.5 mmol/L Normal [facility] Comment on above: Performed By: #### B MP ####[facility] Gmuapbxiqk[address] [place], [place] [address]Dr. Shahbaz Rogel Calcium [Mass/Vol] 8.7 mg/dL Normal 8.5-10.1 [facility] Comment on above: Performed By: #### B MP ####[facility] Wvetkgiqoc[address] [place], [place] [address]Dr. Shahbaz Rogel Chloride [Moles/Vol] 108 mmol/L Critically high 98-107 [facility] Comment on above: Performed By: #### B MP ####[facility] Meidahdeod[address] [place], [place] [address]Dr. Shahbaz Rogel CO2 [Moles/Vol] 25.2 mmol/L Normal 21.0-32.0 [facility] Comment on above: Performed By: #### B MP ####[facility] Hkdphvcshr7[address] [place], [place] [address]Dr. Shahbaz Rogel Creatinine [Mass/Vol] 0.77 mg/dL Normal 0.55-1.02 [facility] Comment on above: Performed By: #### B MP ####[facility] Qhuwyoljrz3[address] [place], [place] [address]Dr. Shahbaz Rogel EGFR-AF PORTUGUESE >60 Normal >=60 [facility] Comment on above: Performed By: #### B MP ####[facility] Umzzkridpa0[address] [place], [place] [address]Dr. Shahbaz Rogel EGFR-NON AF PORTUGUESE >60 Normal >=60 [facility] Comment on above: Performed By: #### B MP ####[facility] Bjmzyjysyt64[address] [place], [place] [address]Dr. Shahbaz Rogel Glucose [Mass/Vol] 169 mg/dL Critically high 74-106 [facility] Comment on above: Performed By: #### B MP ####[facility] Xihgdfqwpl14[address] [place], [place] [address]Dr. Shahbaz Rogel Potassium [Moles/Vol] 3.7 mmol/L Normal 3.5-5.1 [facility] Comment on above: Performed By: #### B MP ####[facility] Utpihrsrxh7[address] [place], [place] [address]Dr. Shahbaz Rogel Sodium [Moles/Vol] 140 mmol/L Normal 136-145 [facility] Comment on above: Performed By: #### B MP ####[facility] Jqhridoaen[address] [place], [place] [address]Dr. Shahbaz Rogel Urea nitrogen [Mass/Vol] 14.0 mg/dL Normal 7.0-18.0 [facility] Comment on above: Performed By: #### B MP ####[facility] Dxzymufslv[address] [place], [place] [address]Dr. Shahbaz Rogel Urea nitrogen/Creatinine [Mass ratio] 18.2 mg/mg Normal [facility] Comment on above: Performed By: #### B MP ####[facility] Grxqfhushb7[address] [place], [place] [address]Dr. Shahbaz Rogel RESPIRATORY PANEL PLUSon Adenovirus Not detected Normal NOT DETECTED [facility] Comment on above: Performed By: #### R SPLUS ####[facility] Veustxdiik[address] [place], [place] [address]Dr. Shahbaz Rogel B. Parapertusis Not detected Normal NOT DETECTED [facility] Comment on above: Performed By: #### R SPLUS ####[facility] Bzhqgimxxb9825[address] [place], [place] [address]Dr. Shahbaz Rogel B. Pertussis Not detected Normal NOT DETECTED [facility] Comment on above: Performed By: #### R SPLUS ####[facility] Qdmgxczotx3517[address] [place], [place] [address]Dr. Shahbaz Rogel Chlamydia Pneumoniae Not detected Normal NOT DETECTED [facility] Comment on above: Performed By: #### R SPLUS ####[facility] Nskavnacgx18[address] [place], [place] [address]Dr. Shahbaz Rogel Coronavirus 229E Not detected Normal NOT DETECTED [facility] Comment on above: Performed By: #### R SPLUS ####[facility] Z[address]wlpdhnl[address] [place] [address]Dr. Shahbaz [facility] Coronavirus HKU1 Not detected Normal NOT DETECTED [facility] Comment on above: Performed By: #### R SPLUS ####[facility] Fcpqhotvvq8[address] [place] [address]Dr. Shahbaz [facility] Coronavirus NL63 Not detected Normal NOT DETECTED [facility] Comment on above: Performed By: #### R SPLUS ####[facility] Ywcsafiofb08[address] [place], [place] [address]Dr. Shahbaz [facility] Coronavirus OC43 Not detected Normal NOT DETECTED [facility] Comment on above: Performed By: #### R SPLUS ####[facility] Imecrpqpwe9983[address] [place], [place] [address]Dr. Shahbaz Rogel Influenza A H1 Not detected Normal NOT DETECTED [facility] Comment on above: Performed By: #### R SPLUS ####[facility] Mixbbxclhp3720[address] [place], [place] [address]Dr. Shahbaz Rogel Influenza A H1 2009 Not detected Normal NOT DETECTED [facility] Comment on above: Performed By: #### R SPLUS ####[facility] Cqvhcrzbra46[address] [place], [place] [address]Dr. Shahbaz [facility] Influenza A H3 Not detected Normal NOT DETECTED [facility] Comment on above: Performed By: #### R SPLUS ####[facility] Qvjacawktg3593[address] [place], [place] [address]Dr. Shahbaz Rogel Influenza B Not detected Normal NOT DETECTED [facility] Comment on above: Performed By: #### R SPLUS ####[facility] Fnhsasfrdq14[address] [place], [place] [address]Dr. Shahbaz Rogel Metapneumovirus Detected Abnormal NOT DETECTED [facility] Comment on above: Performed By: #### R SPLUS ####[facility] Tyqqqbuvyt[address] [place], [place] [address]Dr. Shahbaz Rogel Mycoplas. Pneumoniae Not detected Normal NOT DETECTED [facility] Comment on above: Performed By: #### R SPLUS ####[facility] Xrgizjroii7138[address] [place], [place] [address]Dr. Shahbaz Rogel Parainfluenza 1 Not detected Normal NOT DETECTED [facility] Comment on above: Performed By: #### R SPLUS ####[facility] Ofmjdydnpe0617[address] [place], [place] [address]Dr. Shahbaz Rogel Parainfluenza 2 Not detected Normal NOT DETECTED [facility] Comment on above: Performed By: #### R SPLUS ####[facility] Tqndtcsdgy[address] [place], [place] [address]Dr. Shahbaz Rogel Parainfluenza 3 Not detected Normal NOT DETECTED [facility] Comment on above: Performed By: #### R SPLUS ####[facility] Zefiixowfd2[address] [place], [place] [address]Dr. Shahbaz Rogel Parainfluenza 4 Not detected Normal NOT DETECTED [facility] Comment on above: Performed By: #### R SPLUS ####[facility] Tkwowtubzg[address] [place], [place] [address]Dr. Shahbaz Rogel Rhino/Enterovirus Not detected Normal NOT DETECTED [facility] Comment on above: Performed By: #### R SPLUS ####[facility] Ipdfhytztf15[address] [place], [place] [address]Dr. Shahbaz Rogel RP2 Header 1 RESPIRATORY PANEL: VIRUSES Normal [facility] Comment on above: Performed By: #### R SPLUS ####[facility] Lrqbhkpfbg[address] [place], [place] [address]Dr. Shahbaz Rogel RP2 Header 2 RESPIRATORY PANEL: BACTERIA Normal [facility] Comment on above: Performed By: #### R SPLUS ####[facility] Xccilqmwec[address] [place], [place] [address]Dr. Shahbaz Rogel RSV Not detected Normal NOT DETECTED [facility] Comment on above: Performed By: #### R SPLUS ####[facility] Uhaiubevcs[address] [place], [place] [address]Dr. Shahbaz Rogel SARS-CoV-2 (COVID-19) RNA PAVAN+probe Ql (Unsp spec) Not detected Normal NOT DETECTED [facility] Comment on above: Performed By: #### R SPLUS ####[facility] Gx[address]xmpxqj[address] [place] [address]Dr. Shahbaz Juan F CARDIAC ROSALINA 3-6on 3 CK [Catalytic activity/Vol] 148 U/L Normal 26-192 [facility] Comment on above: Performed By: #### C MREP ####[facility] C[address]unmcnwy[address] [place] [address]Dr. Shahbaz Juan F CK.MB [Mass/Vol] 0.84 ng/mL Normal <=3.60 [facility] Comment on above: Performed By: #### C MREP ####[facility] Bgcbfijfsi[address] [place], [place] [address]Dr. Shahbaz Rogel HSTROP 6.4 pg/mL Normal 4.0-51.3 [facility] Comment on above: Result Comment: CUT- OFF POINTS HAVE BEEN ESTABLISHED BASED ON THE FOURTH UNIVERSAL DEFINITIONS OF MYOCARDIALINFARCTION. THE UPPER REFERENCE LIMIT (URL) OF TROPONIN, DEFINED THE 99TH PERCENTILE OFcTnI DISTRIBUTION IN A REFERENCE POPULATION, HAS BEEN CONFIRMED THE DECISION THRESHOLDFOR MS DIAGNOSIS. Performed By: #### C MREP ####[facility] Tlnuemvjor[address] [place], [place] [address]Dr. Shahbaz Rogel CBC W MANUAL DIFFon 01-04-20 23 ATYPICAL LYMPH # Normal [facility] Comment on above: Performed By: #### C CAIN ####[facility] Ajdjzmjndf[address] [place], [place] [address]Dr. Shahbaz Rogel ATYPICAL LYMPH % Normal [facility] Comment on above: Performed By: #### C BCMAN ####[facility] [address]qfmdjyx[address] [place] [address]Dr. Shahbaz Rogel BAND # 0.0 103/ul Normal 0.0-0.3 [facility] Comment on above: Performed By: #### C CAIN ####[facility] Iqbqetuwpl[address] [place], [place] [address]Dr. Shahbaz Rogel BAND % 0 % Normal 0-5 [facility] Comment on above: Performed By: #### C CAIN ####[facility] Ewigwyvgys[address] [place] [phone]. Shahbaz Rogel BASOM # 0.00 103/ul Normal 0.00-0.10 [facility] Comment on above: Performed By: #### C BCMAN ####[facility] Hiryhhmsgv5943 [place] [phone]. Shahbaz Rogel BASOM % 0.0 % Critically low 0.2-2.0 [facility] Comment on above: Performed By: #### C BCMAN ####[facility] Krtwlgdozv[address] [place] [phone]. Shahbaz Rogel BLAST # Normal [facility] Comment on above: Performed By: #### C BCBRICE ####[facility] Yjbryyryhz8[address] [place] [address]Dr. Shahbaz Rogel BLAST % Normal [facility] Comment on above: Performed By: #### C CAIN ####[facility] Ggfuibxmzt[address] [place], [place] [address]Dr. Shahbaz Rogel CORRECTED WBC Normal 4.0-11.0 [facility] Comment on above: Performed By: #### C CAIN ####[facility] Ixpciplqms[address] [place], [place] [address]Dr. Shahbaz Rogel EOS # 0.02 103/ul Normal 0.00-0.70 [facility] Comment on above: Performed By: #### C CAIN ####[facility] Bmwtobwnjc[address] [place] [address]Dr. Shahbaz Rogel EOS% 1.0 % Normal 0.9-7.0 [facility] Comment on above: Performed By: #### C BCBRICE ####[facility] Jibuxhcfvt5[address] [place] [address]Dr. Shahbaz Rogel HCT 37.5 % Normal 36.0-48.0 [facility] Comment on above: Performed By: #### C BCBRICE ####[facility] Gnwzfpthkr[address] [place], [place] [address]Dr. Shahbaz Rogel HGB 12.0 g/dl Normal 12.0-16.0 [facility] Comment on above: Performed By: #### C CAIN ####[facility] Ejgaicqrvm5667 [place] [phone]. Shahbaz Rogel LYMPHM # 0.21 103/ul Critically low 1.20-3.80 [facility] Comment on above: Performed By: #### C CAIN ####[facility] Wgaofywpvt1868 [place] [phone]. Shahbaz Rogel LYMPHM% 13.0 % Critically low 20.5-60.0 [facility] Comment on above: Performed By: #### C CAIN ####[facility] Ymvaxljolf6[address] [place] [phone]. Shahbaz Rogel MCH 27.8 pg Normal 26.7-34.0 [facility] Comment on above: Performed By: #### C CAIN ####[facility] Zfddhqzqqe04[address] [place] [address]Dr. Shahbaz Rogel MCHC 32.0 g/dl Normal 29.9-35.2 [facility] Comment on above: Performed By: #### C CAIN ####[facility] Aryfrzysxc3[address] [place] [phone]. Shahbaz Rogel MCV 86.8 fL Normal 81.0-99.0 [facility] Comment on above: Performed By: #### Cheri BARLOW ####[facility] [address]ugbrpht[address] [place] [phone]. Shahbaz Rogel METAMYELOCYTE # Normal [facility] Comment on above: Performed By: #### C ACIN ####[facility] Wqulplqiqg6245 [place] [phone]. Shahbaz Rogel METAMYELOCYTE % Normal [facility] Comment on above: Performed By: #### C CAIN ####[facility] Nasabcqdab8585 [place] [phone]. Shahbaz Rogel MONOM# 0.02 103/ul Critically low 0.30-0.80 [facility] Comment on above: Performed By: #### C CAIN ####[facility] Xininxbjll5082 [place] [phone]. Shahbaz Rogel MONOM% 1.0 % Critically low 1.7-12.0 [facility] Comment on above: Performed By: #### C CAIN ####[facility] Blicbswcsu044[address] [place] [phone]. Shahbaz Rogel MPV 9.5 fL Normal 9.5-13.5 [facility] Comment on above: Performed By: #### C CAIN ####[facility] Cgxchtovct9351 [place] [phone]. Shahbaz Rogel MYELOCYTE # Normal [facility] Comment on above: Performed By: #### C CAIN ####[facility] Fsmpokzwkf8701 [place] [phone]. Shahbaz Rogel MYELOCYTE % Normal [facility] Comment on above: Performed By: #### C CAIN ####[facility] Muhyfrjbpl[address] [place], [place] [address]Dr. Shahbaz Rogel NRBC Normal [facility] Comment on above: Performed By: #### C CAIN ####[facility] Yqpgwbckdv6496 [place] [phone]. Shahbaz Rogel PLT 173 103/ul Normal 150-450 [facility] Comment on above: Performed By: #### C CAIN ####[facility] Jcjweefxzs[address] [place], [place] [address]Dr. Shahbaz Rogel RBC 4.32 106/ul Normal 4.20-5.40 [facility] Comment on above: Performed By: #### C CAIN ####[facility] Iqoirrntze1171 [place] [phone]. Shahbaz Rogel RDW 13.1 % Normal 11.0-15.0 [facility] Comment on above: Performed By: #### C CAIN ####[facility] Xjkfkkthfb[address] [place], [place] [address]Dr. Shahbaz Rogel SEG # 1.36 103/ul Critically low 1.40-6.50 [facility] Comment on above: Performed By: #### C CAIN ####[facility] Ngboighssv6166[address] [place], [place] [address]Dr. Shahbaz Rogel SEG % 85.0 % Critically high 43.0-75.0 [facility] Comment on above: Performed By: #### C CHANELMAN ####[facility] Sjqqetaiua33[address] [place], [place] [address]Dr. Shahbaz Rogel WBC 1.6 103/ul Critically low 4.0-11.0 [facility] Comment on above: Performed By: #### C CAIN ####[facility] Uwuppnxqii4164[address] [place], [place] [address]Dr. Shahbaz Rogel CT CHEST WO CONon 01-03-2023 CT CHEST WO CON Normal [facility] ER URINE PROFILEon 3 Bilirubin Ql (U) Negative Normal NEGATIVE [facility] Comment on above: Performed By: #### E RUR ####[facility] Tvwlrwopbn4743[address] [place], [place] [address]Dr. Shahbaz Rogel Clarity (U) CLEAR Normal CLEAR [facility] Comment on above: Performed By: #### E RUR ####[facility] Hdnosrzlwb[address] [place], [place] [address]Dr. Shahbaz Rogel Color (U) LT. YELLOW Normal YELLOW [facility] Comment on above: Performed By: #### E RUR ####[facility] Osxkcotadf[address] [place], [place] [address]Dr. Shahbaz Rogel ERUAHD A micrscopic examina tion will be performed if indicated. Normal [facility] Comment on above: Performed By: #### E RUR ####[facility] Vinmjiwwou6024[address] [place], [place] [address]Dr. Shahbaz Rogel Glucose Ql (U) Negative Normal NEGATIVE [facility] Comment on above: Performed By: #### E RUR ####[facility] Qcsgsdajkj[address] [place], [place] [address]Dr. Shahbaz Rogel Hemoglobin Ql (U) Negative Normal NEGATIVE [facility] Comment on above: Performed By: #### E RUR ####[facility] Evkmpklqca6459[address] [place], [place] [address]Dr. Shahbaz Rogel Ketones Ql (U) Negative Normal NEGATIVE [facility] Comment on above: Performed By: #### E RUR ####[facility] Otqhyirsxr[address] [place] [address]Dr. Shahbaz Rogel LEUKOCYTES Negative Normal NEGATIVE [facility] Comment on above: Performed By: #### E RUR ####[facility] Jdyyfyruiq15[address] [place] [address]Dr. Shahbaz Rogel Nitrite Ql (U) Negative Normal NEGATIVE [facility] Comment on above: Performed By: #### E RUR ####[facility] Fteuzgaptf6843[address] [place], [place] [address]Dr. Shahbaz Rogel pH (U) 6.0 [pH] Normal 5-9 [facility] Comment on above: Performed By: #### E RUR ####[facility] Qbpftxyohj[address] [place], [place] [address]Dr. Shahbaz Rogel SPEC GRAVITY <=1.005 Abnormal 1.005-<=1. 025 [facility] Comment on above: Performed By: #### E RUR ####[facility] Zkbyjkiikv[address] [place], [place] [address]Dr. Shahbaz Rogel UA PROTEIN Negative Normal NEGATIVE/ TRACE [facility] Comment on above: Performed By: #### E RUR ####[facility] Nbslibfoso37[address] [place], [place] [address]Dr. Shahbaz Rogel UR MICRO IND NOT INDICATED Normal [facility] Comment on above: Performed By: #### E RUR ####[facility] Monyjugnnt5[address] [place], [place] [address]Dr. Shahbaz Rogel Urobilinogen Qn (U) 0.2 {Melida'U}/dL Normal 0.2 - 1. 0 [facility] Comment on above: Performed By: #### E RUR ####[facility] Tzzgeuckgg[address]14[address] [place], [place] [address]Dr. Shahbaz Juan F LACTATE/LACTIC ACIDon 2022 Lactate [Moles/Vol] 1.5 mmol/L Normal 0.4-2.0 [facility] Comment on above: Performed By: #### L ACT ####[facility] Feyfgpwlpz[address] [place] [address]Dr. Shahbaz Juan F PROF CHEM 8 (BAS METB)on Anion gap [Moles/Vol] 11.6 mmol/L Normal [facility] Comment on above: Performed By: #### B MP ####[facility] Lrkkwcahhy[address] [place] [address]Dr. Shahbaz Rogel Calcium [Mass/Vol] 8.1 mg/dL Critically low 8.5-10.1 [facility] Comment on above: Performed By: #### B MP ####[facility] Ayalrmrrmo[address] [place], [place] [address]Dr. Shahbaz Rogel Chloride [Moles/Vol] 109 mmol/L Critically high 98-107 [facility] Comment on above: Performed By: #### B MP ####[facility] Ndccrhnftw[address] [place], [place] [address]Dr. Shahbaz Rogel CO2 [Moles/Vol] 25.2 mmol/L Normal 21.0-32.0 [facility] Comment on above: Performed By: #### B MP ####[facility] Zwiklzgcfg[address] [place], [place] [address]Dr. Shahbaz Rogel Creatinine [Mass/Vol] 0.89 mg/dL Normal 0.55-1.02 [facility] Comment on above: Performed By: #### B MP ####[facility] Jiittzbwdr9839[address] [place], [place] [address]Dr. Shahbaz Rogel EGFR-AF PORTUGUESE >60 Normal >=60 [facility] Comment on above: Performed By: #### B MP ####[facility] Yeqybbstvq3[address] [place], [place] [address]Dr. Shahbaz Rogel EGFR-NON AF PORTUGUESE >60 Normal >=60 [facility] Comment on above: Performed By: #### B MP ####[facility] Bdgmwjpjjh[address] [place], [place] [address]Dr. Shahbaz Rogel Glucose [Mass/Vol] 167 mg/dL Critically high 74-106 [facility] Comment on above: Performed By: #### B MP ####[facility] Qbmfvbntyb2160 [place] [address]Dr. Shahbaz Rogel Potassium [Moles/Vol] 3.8 mmol/L Normal 3.5-5.1 [facility] Comment on above: Performed By: #### B MP ####[facility] Behuxexcvk[address] [place] [address]Dr. Shahbaz Rogel Sodium [Moles/Vol] 142 mmol/L Normal 136-145 [facility] Comment on above: Performed By: #### B MP ####[facility] Yqukyeudwr[address] [place], [place] [address]Dr. Shahbaz Rogel Urea nitrogen [Mass/Vol] 9.0 mg/dL Normal 7.0-18.0 [facility] Comment on above: Performed By: #### B MP ####[facility] Mphgmqvumx[address] [place], [place] [address]Dr. Shahbaz Rogel Urea nitrogen/Creatinine [Mass ratio] 10.1 mg/mg Normal [facility] Comment on above: Performed By: #### B MP ####[facility] Rhxqwxyiqe12[address] [place], [place] [address]Dr. Shahbaz Rogel CARDIAC ROSALINA ADMITon 023 CK [Catalytic activity/Vol] 173 U/L Normal 26-192 [facility] Comment on above: Performed By: #### C EZEKIEL, BMP ####[facility] Gvcogssuan[address] [place], [place] [address]Dr. Shahbaz Rogel CK.MB [Mass/Vol] 0.55 ng/mL Normal <=3.60 [facility] Comment on above: Performed By: #### C EZEKIEL, BMP ####[facility] Qxfelsqhwg[address] [place], [place] [address]Dr. Shahbaz Rogel HSTROP 5.9 pg/mL Normal 4.0-51.3 [facility] Comment on above: Result Comment: CUT- OFF POINTS HAVE BEEN ESTABLISHED BASED ON THE FOURTH UNIVERSAL DEFINITIONS OF MYOCARDIALINFARCTION. THE UPPER REFERENCE LIMIT (URL) OF TROPONIN, DEFINED THE 99TH PERCENTILE OFcTnI DISTRIBUTION IN A REFERENCE POPULATION, HAS BEEN CONFIRMED THE DECISION THRESHOLDFOR MS DIAGNOSIS. Performed By: #### C MADM, BMP ####[facility] [address]imc[address] [place] [id number]. Shahbaz Rogel LEN 76 ng/mL Normal 9-82 [facility] Comment on above: Performed By: #### C EMILIO FALCON ####[facility] Xalbljaiah[address] [place] [phone]. Shahbaz Rogel CBC W MANUAL DIFFon 01-03-20 23 ATYPICAL LYMPH # Normal [facility] Comment on above: Performed By: #### C CAIN ####[facility] [address] [place] [address]Dr. Shahbaz Rogel ATYPICAL LYMPH % Normal [facility] Comment on above: Performed By: #### C CAIN ####[facility] Lblzaoqb[address] [place], [place] [address]Dr. Shahbaz Rogel BAND # Normal 0.0-0.3 [facility] Comment on above: Performed By: #### C CAIN ####[facility] Aorawevjgk[address] [place], [place] [address]Dr. Yilan Rogel BAND % Normal 0-5 [facility] Comment on above: Performed By: #### C CAIN ####[facility] Thjfsnaowd[address] [place], [place] [address]Dr. Shahbaz Rogel BASOM # 0.00 103/ul Normal 0.00-0.10 [facility] Comment on above: Performed By: #### C CAIN ####[facility] Bybziduezj[address] [place] [address]Dr. Shahbaz Rogel BASOM % 0.0 % Critically low 0.2-2.0 [facility] Comment on above: Performed By: #### C CAIN ####[facility] Cwtqkhnmil[address] [place] [address]Dr. Shahbaz Rogel BLAST # Normal [facility] Comment on above: Performed By: #### C CAIN ####[facility] Adzyqsnbix[address] [place] [address]Dr. Yijarrod Rogel BLAST % Normal [facility] Comment on above: Performed By: #### C CAIN ####[facility] Slvxghfxmy55[address] [place] [phone]. Shahbaz Rogel CORRECTED WBC Normal 4.0-11.0 [facility] Comment on above: Performed By: #### C CAIN ####[facility] Cyckfmmwnm59[address] [place] [phone]. Shahbaz Rogel EOS # 0.03 103/ul Normal 0.00-0.70 [facility] Comment on above: Performed By: #### C CAIN ####[facility] Bfakbnxfzi[address] [place] [address]Dr. Shahbaz Rogel EOS% 1.0 % Normal 0.9-7.0 [facility] Comment on above: Performed By: #### C CAIN ####[facility] C[address]attbfzy[address] [place], [place] [address]Dr. Shahbaz Rogel HCT 42.8 % Normal 36.0-48.0 [facility] Comment on above: Performed By: #### C CAIN ####[facility] Xxzwctgnoy[address] [place], [place] [address]Dr. Shahbaz Rogel HGB 14.1 g/dl Normal 12.0-16.0 [facility] Comment on above: Performed By: #### C CAIN ####[facility] Vnlzymltdb[address] [place], [place] [address]Dr. Shahbaz Rgoel LYMPHM # 0.64 103/ul Critically low 1.20-3.80 [facility] Comment on above: Performed By: #### C CAIN ####[facility] Otpetevebf[address] [place], [place] [address]Dr. Shahbaz Rogel LYMPHM% 23.0 % Normal 20.5-60.0 [facility] Comment on above: Performed By: #### C CAIN ####[facility] Wctzjluwcs[address] [place], [place] [address]Dr. Shahbaz Rogel MCH 28.0 pg Normal 26.7-34.0 [facility] Comment on above: Performed By: #### C CAIN ####[facility] Olorkx[address] [place], [place] [address]Dr. Shahbaz Rogel MCHC 32.9 g/dl Normal 29.9-35.2 [facility] Comment on above: Performed By: #### C CAIN ####[facility] Sgoztgclfk44[address] [place] [phone]. Shahbaz Rogel MCV 84.9 fL Normal 81.0-99.0 [facility] Comment on above: Performed By: #### C CAIN ####[facility] Fgcfqabcvz13[address] [place] [phone]. Shahbaz Rogel METAMYELOCYTE # Normal [facility] Comment on above: Performed By: #### C CAIN ####[facility] Pmczblkfxf[address] [place] [phone]. Shahbaz Rogel METAMYELOCYTE % Normal [facility] Comment on above: Performed By: #### C CAIN ####[facility] Sepbbkdrpl[address] [place], [place] [address]Dr. Shahbaz Rogel MONOM# 0.31 103/ul Normal 0.30-0.80 [facility] Comment on above: Performed By: #### C CAIN ####[facility] Xlemnmknhd7[address] [place] [phone]. Shahbaz Rogel MONOM% 11.0 % Normal 1.7-12.0 [facility] Comment on above: Performed By: #### C CAIN ####[facility] Luzswbkzvy07[address] [place] [phone]. Shahbaz Rogel MPV 9.5 fL Normal 9.5-13.5 [facility] Comment on above: Performed By: #### C CAIN ####[facility] Dhpnmgoyuh59[address] [place] [phone]. Shahbaz Rogel MYELOCYTE # Normal [facility] Comment on above: Performed By: #### C CAIN ####[facility] [address]ytf[address] [place], [place] [address]Dr. Shahbaz Rogel MYELOCYTE % Normal [facility] Comment on above: Performed By: #### C CAIN ####[facility] Ildmvybzgy[address] [place], [place] [address]Dr. Shahbaz Rogel NRBC Normal [facility] Comment on above: Performed By: #### Cheri BARLOW ####[facility] Eggqwdxhxl[address] [place], [place] [address]Jp. Shahbaz Rogel PLT 197 103/ul Normal 150-450 [facility] Comment on above: Performed By: #### Cheri BARLOW ####[facility] Vokvrqbwjy9736 [place], [place] [address]Re. Shahbaz Rogel RBC 5.04 106/ul Normal 4.20-5.40 [facility] Comment on above: Performed By: #### Cheri BARLOW ####[facility] Aiuvcofrvm7499 [place], [place] [address]Ue. Shahbaz Rogel RDW 13.2 % Normal 11.0-15.0 [facility] Comment on above: Performed By: #### Cheri BARLOW ####[facility] Xfvxgnvakh5410 [place], [place] [address]Fg. Shahbaz Rogel SEG # 1.82 103/ul Normal 1.40-6.50 [facility] Comment on above: Performed By: #### Cheri BARLOW ####[facility] Cdqlphflze8755 [place], [place] [address]Gi. Shahbaz Rogel SEG % 65.0 % Normal 43.0-75.0 [facility] Comment on above: Performed By: #### Cheri BARLOW ####[facility] Bwsfbkouzx3847 [place], [place] [address]Mb. Shahbaz Rogel WBC 2.8 103/ul Critically low 4.0-11.0 [facility] Comment on above: Performed By: #### Cheri BARLOW ####[facility] Vqptgkluqv12[address] [place] [phone]. Shahbaz Rogel [facility] ([facility]on SARS-CoV-2 (COVID-19) RNA PAVAN+probe Ql (Unsp spec) Not detected Normal NOT DETECTED [facility] Comment on above: Result Comment: When [...] for this test is supported by the Shotblaster of Health and Human Service's declaration that [...] be used). Performed By: #### C VDTBH ####[facility] Xaevomtlit[address] [place], [place] [address]Dr. Shahbaz Rogel D-DIMERon 01-02-2023 D-DIMER 0.38 mg/L FEU Normal <=0.59 [facility] Comment on above: Performed By: #### D DIM ####[facility] Kcmlzsfsbc86[address] [place], [place] [address]Dr. Shahbaz Rogel D-DIMER COMMENTS SEE BELOW Normal [facility] Comment on above: Result Comment: Incr [...] generalized hospitalization. Performed By: #### D DIM ####[facility] Zswirykghp9[address] [place], [place] [address]Dr. Sahhbaz Rogel LACTATE/LACTIC ACIDon 2022 Lactate [Moles/Vol] 2.1 mmol/L Critically high 0.4-2.0 [facility] Comment on above: Performed By: #### L ACT ####[facility] Fstsljmqbs[address] [place], [place] [address]Dr. Shahbaz Rogel PROF CHEM 8 (BAS METB)on 04- 03-2023 Anion gap [Moles/Vol] 14.3 mmol/L Normal [facility] Comment on above: Performed By: #### Cheri FALCON, BMP ####[facility] Imtgpogtnz[address] [place], [place] [address]Dr. Shahbaz Rogel Calcium [Mass/Vol] 9.0 mg/dL Normal 8.5-10.1 [facility] Comment on above: Performed By: #### Cheri FALCON, BMP ####[facility] Wgnyxinqmg[address] [place], [place] [address]Dr. Shahbaz Rogel Chloride [Moles/Vol] 102 mmol/L Normal 98-107 [facility] Comment on above: Performed By: #### Cheri FALCON, BMP ####[facility] Dhfwvwxkqt5354[address] [place], [place] [address]Dr. Lilajarrod Rogel CO2 [Moles/Vol] 25.5 mmol/L Normal 21.0-32.0 [facility] Comment on above: Performed By: #### Cheri FALCON, BMP ####[facility] Auaiojtnyi[address] [place], [place] [address]Dr. Shahbaz Rogel Creatinine [Mass/Vol] 1.01 mg/dL Normal 0.55-1.02 [facility] Comment on above: Performed By: #### Cheri FALCON, BMP ####[facility] Wsvqqagycb[address] [place], [place] [address]Dr. Shahbaz Juan F EGFR-AF PORTUGUESE >60 Normal >=60 [facility] Comment on above: Performed By: #### Cheri FALCON, BMP ####[facility] Qvfgyllcfc[address] [place], [place] [address]Dr. Lilajarrod Juan F EGFR-NON AF PORTUGUESE 56 mL/min/1.73m2 Critically low >=60 [facility] Comment on above: Performed By: #### Cheri FALCON, BMP ####[facility] Npiztttbay[address] [place], [place] [address]Dr. Lilajarrod Rogel Glucose [Mass/Vol] 105 mg/dL Normal 74-106 [facility] Comment on above: Performed By: #### Cheri FALCON, BMP ####[facility] Fjjthmdqww[address] [place], [place] [address]Dr. Shahbaz Rogel Potassium [Moles/Vol] 3.8 mmol/L Normal 3.5-5.1 [facility] Comment on above: Performed By: #### C EZEKIEL, BMP ####[facility] [address]fjesza[address] [place] [address]Dr. Shahbaz Rogel Sodium [Moles/Vol] 138 mmol/L Normal 136-145 [facility] Comment on above: Performed By: #### C EZEKIEL, BMP ####[facility] Gcpsuvxhky[address] [place], [place] [address]Dr. Shahbaz Rogel Urea nitrogen [Mass/Vol] 9.0 mg/dL Normal 7.0-18.0 [facility] Comment on above: Performed By: #### C EZEKIEL, BMP ####[facility] Fccbylsjwl[address] [place], [place] [address]Dr. Shahbaz Rogel Urea nitrogen/Creatinine [Mass ratio] 8.9 mg/mg Normal [facility] Comment on above: Performed By: #### C EZEKIEL, BMP ####[facility] Cjxyxrtqei[address] [place], [place] [address]Dr. Shahbaz Rogel XR CHEST 1 Von 01-02-2023 XR CHEST 1 V Normal [facility] INSULINon 11-02-2022 Insulin 6.0 uIU/mL Normal 2.6-24.9 [facility] Comment on above: Performed By: #### I NSULIN ####[facility] Ysboqmmnyf[address] [place], [place] [address]Dr. Shahbaz Rogel CBC AUTO DIFFon 11-01-2022 BASO # 0.0 103/ul Normal 0.0-0.1 [facility] Comment on above: Performed By: #### C BC ####[facility] Irgvpocwyd[address]25[address] [place], [place] [address]Dr. Shahbaz Rogel Basophils/100 WBC (Bld) 0.5 % Normal 0.2-2.0 [facility] Comment on above: Performed By: #### C BC ####[facility] Ovxidilxom65[address] [place], [place] [address]Dr. Shahbaz Rogel EO # 0.2 103/ul Normal 0.0-0.7 [facility] Comment on above: Performed By: #### C BC ####[facility] Endrmtyjbc6[address] [place], [place] [address]Dr. Shahbaz Rogel Eosinophils/100 WBC (Bld) 5.2 % Normal 0.9-7.0 [facility] Comment on above: Performed By: #### C BC ####[facility] Wmlutyorww[address] [place], [place] [address]Dr. Shahbaz Rogel Erythrocyte distribution width (RBC) [Ratio] 12.7 % Normal 11.0-15.0 [facility] Comment on above: Performed By: #### C BC ####[facility] Sbaxsqrkhs4617[address] [place], [place] [address]Dr. Shahbaz Rogel Hematocrit (Bld) [Volume fraction] 46.4 % Normal 36.0-48.0 [facility] Comment on above: Performed By: #### C BC ####[facility] Hmwsghsatx8845[address] [place], [place] [address]Dr. Shahbaz Rogel Hemoglobin (Bld) [Mass/Vol] 14.9 g/dL Normal 12.0-16.0 [facility] Comment on above: Performed By: #### C BC ####[facility] Ggxgpihymg68[address] [place], [place] [address]Dr. Shahbaz Rogel IG # 0.00 10e3/ul Normal 0.00-0.03 [facility] Comment on above: Performed By: #### C BC ####[facility] Gjbwfwxbok[address] [place], [place] [address]Dr. Shahbaz Rogel IG % 0.0 % Normal 0.0-0.5 [facility] Comment on above: Performed By: #### C BC ####[facility] Zbzdblzdpb[address] [place], [place] [address]DrChen Rogel LYMPH # 1.1 103/ul Critically low 1.2-3.8 [facility] Comment on above: Performed By: #### C BC ####[facility] Kaxaqkyxkj42[address] [place], [place] [address]Dr. Shahbaz Rogel Lymphocytes/100 WBC (Bld) 25.5 % Normal 20.5-60.0 [facility] Comment on above: Performed By: #### C BC ####[facility] Qlbvfhymnq[address] [place] [address]DrChen Rogel MANUAL DIFF REQ NO Normal [facility] Comment on above: Performed By: #### C BC ####[facility] Viutkofrka[address] [place] [address]Dr. Shahbaz Rogel MCH (RBC) [Entitic mass] 27.8 pg Normal 26.7-34.0 [facility] Comment on above: Performed By: #### C BC ####[facility] Qrgxbvecmy8525[address] [place], [place] [address]Dr. Shahbaz Rogel MCHC (RBC) [Mass/Vol] 32.1 g/dL Normal 29.9-35.2 [facility] Comment on above: Performed By: #### C BC ####[facility] Lowmpdzndm[address] [place], [place] [address]DrChen Rogel MCV (RBC) [Entitic vol] 86.6 fL Normal 81.0-99.0 [facility] Comment on above: Performed By: #### C BC ####[facility] Mowzmlvejn[address] [place], [place] [address]DrChen Rogel MONO # 0.2 103/ul Critically low 0.3-0.8 [facility] Comment on above: Performed By: #### C BC ####[facility] Pjftzgrntn[address] [place], [place] [address]DrChen Rogel Monocytes/100 WBC (Bld) 5.4 % Normal 1.7-12.0 [facility] Comment on above: Performed By: #### C BC ####[facility] Sfgsjopdvr[address] [place], [place] [address]DrChen Rogel NEUT # 2.7 103/ul Normal 1.4-6.5 [facility] Comment on above: Performed By: #### C BC ####[facility] Dttdjjxmew[address] [place], [place] [address]DrChen Rogel Neutrophils/100 WBC (Bld) 63.4 % Normal 43.0-75.0 [facility] Comment on above: Performed By: #### C BC ####[facility] [address]qr[address] [place] [address]Dr. Shahbaz Rogel Platelet mean volume (Bld) [Entitic vol] 9.4 fL Critically low 9.5-13.5 [facility] Comment on above: Performed By: #### C BC ####[facility] Yneqotajts[address] [place] [address]Dr. Shahbaz Juan F PLT 216 103/ul Normal 150-450 [facility] Comment on above: Performed By: #### C BC ####[facility] Hjksoyxpcs69[address] [place] [address]Dr. Shahbaz Juan F RBC 5.36 106/ul Normal 4.20-5.40 [facility] Comment on above: Performed By: #### C BC ####[facility] Hhzianmiuc[address] [place], [place] [address]Dr. Shahbaz Juan F WBC 4.2 103/ul Normal 4.0-11.0 [facility] Comment on above: Performed By: #### C BC ####[facility] Lyjcsuldnw[address] [place] [address]Dr. Shahbaz Juan F FREE THYROXINE INDEX T7on FTI 2.92 Normal 1.30-4.50 [facility] Comment on above: Performed By: #### C MP, LIPID, T7, TSH ####[facility] Lknqoqttnt[address] [place] [address]Dr. Shahbaz Juan F T3U 37.0 % Normal 30.0-39.0 [facility] Comment on above: Performed By: #### C MP, LIPID, T7, TSH ####[facility] Mfnwzrdgpn9[address] [place] [address]Dr. Shahbaz Rogel T4 [Mass/Vol] 7.90 ug/dL Normal 4.80-13.90 [facility] Comment on above: Performed By: #### C MP, LIPID, T7, TSH ####[facility] [address]qvnfzsdgw4[address] [place] [address]Dr. Shahbaz Rogel GLYCOHEMOGLOBIN A1Con 2022 ADA RECOMMENDATION SEE BELOW Normal [facility] Comment on above: Result Comment: ADA RECOMMENDED LIMIT 4.0 - 6.0 ADA THERAPEUTIC TARGET < 7.0 ACTION SUGGESTED > 7.0 Performed By: #### A 1C ####[facility] Jkjbqhmjbd[address] [place] [id number]. Shahbaz Rogel Glucose [Mass/Vol] 120 mg/dL Normal [facility] Comment on above: Performed By: #### A 1C ####[facility] Lkqifmmnfy[address] [place], [place] [address]Dr. Shahbaz Rogel HbA1c (Bld) [Mass fraction] 5.8 % Normal 4.5-6.2 [facility] Comment on above: Performed By: #### A 1C ####[facility] Bduymnivzo[address] [place], [place] [address]Dr. Shahbaz Rogel IRONon 11-01-2022 Iron [Mass/Vol] 54.0 ug/dL Normal 50.0-170.0 [facility] Comment on above: Performed By: #### I GRIS ####[facility] Kitadujrln[address] [place], [place] [address]Dr. Shahbaz Rogel LIPID PROFILEon 11-01-2022 CHOL-HDL RATIO NORM SEE BELOW Normal [facility] Comment on above: Result Comment: 3.3 - 4.4 LOW RISK 4.4 - 7.1 AVERAGE RISK 7.1 - 11.0 MODERATE RISK >11.0 HIGH RISK Performed By: #### C MP, LIPID, T7, TSH ####[facility] Mjnxdpalbx[address] [place], [place] [address]Dr. Shahbaz Rogel Cholesterol [Mass/Vol] 203 mg/dL Critically high <=200 [facility] Comment on above: Performed By: #### C MP, LIPID, T7, TSH ####[facility] Elvdmbixxl[address] [place], [place] [address]Dr. Shahbaz Rogel Cholesterol in HDL [Mass/Vol] 42 mg/dL Normal 40-60 [facility] Comment on above: Performed By: #### C MP, LIPID, T7, TSH ####[facility] Djlapwcjjq8[address] [place] [id number]. Shahbaz Rogel Cholesterol in LDL [Mass/Vol] 121.4 mg/dL Normal [facility] Comment on above: Performed By: #### C MP, LIPID, T7, TSH ####[facility] Jshwtvmunm5[address] [place] [phone]. Shahbaz Rogel Cholesterol.total/Chol esterol in HDL [Mass ratio] 4.8 {ratio} Normal [facility] Comment on above: Performed By: #### C MP, LIPID, T7, TSH ####[facility] [address]zqfmv[address] [place] [address]Dr. Shahbaz Rogel HDL NORMAL > or = 60 mg/dl - LO W CARDIOVASCULAR RISK <40 mg/dl - HIGH CARDIOVASCULAR RISK Normal [facility] Comment on above: Performed By: #### C MP, LIPID, T7, TSH ####[facility] V[address]ryldrth[address] [place] [address]Dr. Shahbaz Rogel LDL CALC NORMAL SEE BELOW Normal [facility] Comment on above: Result Comment: <100 mg/dl OPTIMAL 100 - 129 mg/dl NEAR OR ABOVE OPTIMAL 130 - 159 mg/dl BORDERLINE HIGH 160 - 189 mg/dl HIGH >190 mg/dl VERY HIGH Performed By: #### C MP, LIPID, T7, TSH ####[facility] Zngqmxupqz[address] [place] [address]Dr. Shahbaz Rogel Triglyceride [Mass/Vol] 198 mg/dL Critically high <=150 [facility] Comment on above: Performed By: #### C MP, LIPID, T7, TSH ####[facility] Edkzrphiqn6[address] [place] [id number]. Shahbaz Rogel VLDL CALC 39.6 mg/dL Normal [facility] Comment on above: Performed By: #### C MP, LIPID, T7, TSH ####[facility] Pbguvgiros[address] [place] [address]Dr. Shahbaz Rogel PROF 14(COMP METB)on 023 Albumin [Mass/Vol] 4.1 g/dL Normal 3.4-5.0 [facility] Comment on above: Performed By: #### C MP, LIPID, T7, TSH ####[facility] Yjdnloytxg0388 [place] [phone]. Shahbaz Rogel Albumin/Globulin [Mass ratio] 1.0 {ratio} Normal [facility] Comment on above: Performed By: #### C MP, LIPID, T7, TSH ####[facility] Qmamarxysi[address] [place] [address]Dr. Shahbaz Rogel ALP [Catalytic activity/Vol] 126 U/L Critically high 46-116 [facility] Comment on above: Performed By: #### C MP, LIPID, T7, TSH ####[facility] [address]utwh[address] [place] [address]Dr. Shahbaz Rogel ALT [Catalytic activity/Vol] 30 U/L Normal 14-59 [facility] Comment on above: Performed By: #### C MP, LIPID, T7, TSH ####[facility] Xpjicbdtit64[address] [place] [address]Dr. Shahbaz Rogel Anion gap [Moles/Vol] 12.3 mmol/L Normal [facility] Comment on above: Performed By: #### C MP, LIPID, T7, TSH ####[facility] Jrmrxvvsoi[address] [place], [place] [address]Dr. Shahbaz Rogel AST [Catalytic activity/Vol] 25 U/L Normal 15-37 [facility] Comment on above: Performed By: #### C MP, LIPID, T7, TSH ####[facility] Acefljfprw[address] [place] [address]Dr. Shahbaz Rogel Bilirubin [Mass/Vol] 0.5 mg/dL Normal 0.2-1.0 [facility] Comment on above: Performed By: #### C MP, LIPID, T7, TSH ####[facility] [address]xbfdtjzd[address] [place] [address]Dr. Shahbaz Rogel Calcium [Mass/Vol] 9.4 mg/dL Normal 8.5-10.1 [facility] Comment on above: Performed By: #### C MP, LIPID, T7, TSH ####[facility] Chrksnafwz[address] [place] [address]Dr. Shahbaz Rogel Chloride [Moles/Vol] 104 mmol/L Normal 98-107 [facility] Comment on above: Performed By: #### C MP, LIPID, T7, TSH ####[facility] Xikaetsbyx[address] [place] [address]Dr. Shahbaz Rogel CO2 [Moles/Vol] 29.6 mmol/L Normal 21.0-32.0 [facility] Comment on above: Performed By: #### C MP, LIPID, T7, TSH ####[facility] [address]ossxvfxbo[address] [place] [address]Dr. Shahbaz Rogel Creatinine [Mass/Vol] 0.91 mg/dL Normal 0.55-1.02 [facility] Comment on above: Performed By: #### C MP, LIPID, T7, TSH ####[facility] Psxwasxaul[address] [place] [address]Dr. Shahbaz Rogel EGFR-AF PORTUGUESE >60 Normal >=60 [facility] Comment on above: Performed By: #### C MP, LIPID, T7, TSH ####[facility] [address]wg[address] [place] [address]Dr. Shahbaz Rogel EGFR-NON AF PORTUGUESE >60 Normal >=60 [facility] Comment on above: Performed By: #### C MP, LIPID, T7, TSH ####[facility] R[address]pgyzrxd[address] [place] [address]Dr. Lilajarrod Rogel Globulin (S) [Mass/Vol] 4.0 g/dL Normal [facility] Comment on above: Performed By: #### C MP, LIPID, T7, TSH ####[facility] Sucs[address]wyjc[address] [place] [address]Dr. Shahbaz Rogel Glucose [Mass/Vol] 85 mg/dL Normal 74-106 [facility] Comment on above: Performed By: #### C MP, LIPID, T7, TSH ####[facility] Ervewtacdn64[address] [place] [address]Dr. Shahbaz Rogel Potassium [Moles/Vol] 3.9 mmol/L Normal 3.5-5.1 [facility] Comment on above: Performed By: #### C MP, LIPID, T7, TSH ####[facility] Xuezfijwep[address] [place] [id number]. Shahbaz Rogel Protein [Mass/Vol] 8.1 g/dL Normal 6.4-8.2 [facility] Comment on above: Performed By: #### C MP, LIPID, T7, TSH ####[facility] Z[address]ipffxjlg[address] [place] [address]Dr. Shahbaz Rogel Sodium [Moles/Vol] 142 mmol/L Normal 136-145 [facility] Comment on above: Performed By: #### C MP, LIPID, T7, TSH ####[facility] [address]gt[address] [place] [address]Dr. Shahbaz Rogel Urea nitrogen [Mass/Vol] 9.0 mg/dL Normal 7.0-18.0 [facility] Comment on above: Performed By: #### C MP, LIPID, T7, TSH ####[facility] [address] [place] [address]Dr. Shahbaz Rogel Urea nitrogen/Creatinine [Mass ratio] 9.9 mg/mg Normal [facility] Comment on above: Performed By: #### C MP, LIPID, T7, TSH ####[facility] [address] [place] [address]Dr. Shahbaz Rogel TSHon 11-01-2022 TSH 0.045 uIU/mL Critically low 0.358-3.74 0 [facility] Comment on above: Performed By: #### C MP, LIPID, T7, TSH ####[facility] [address] [place], [place] [address]Dr. Shahbaz Rogel XR HUMERUS LT MIN 2Von 10-01 XR HUMERUS LT MIN 2V Normal [facility] XR LSPINE 2_3 VIEWSon 2021 XR LSPINE 2_3 VIEWS Normal [facility] XR CHEST 1 Von 08-25-2022 XR CHEST 1 V Normal [facility] ACID FAST SMEAR AND CXon Acid Fast Culture Negative Normal [facility] Comment on above: Result Comment: No a ninfa fast bacilli isolated after 6 weeks. Performed By: #### A FB ####[facility] [address] [place], [place] [address]Lf. Shahbaz Rogel Acid Fast Smear Negative Normal [facility] Comment on above: Performed By: #### A FB ####[facility] [address] [place], [place] [address]Il. Shahbaz Rogel [employer] Specimen Processing Concentration Normal [facility] Comment on above: Performed By: #### A FB ####[facility] [address] [place], [place] [address]Jl. Shahbaz Rogel Bacteria identified Anaer cx Nom (Unsp spec)Ordered By: Rodolfo Harley on 08-13-2022 Anaerobic microbial culture No Anaerobes Isolated 3 Days [facility] Basophils Auto (Bld) [#/Vol] Ordered By: Rodolfo Harley on 08-12-2022 Basophils (Bld) [#/Vol] 0.0 10*3/uL 0.0-0.2 [facility] Basophils/100 WBC Auto (Bld) Ordered By: Rodolfo Harley on 08-12-2022 Basophils/100 WBC (Bld) 0.4 % . [facility] Creatinine and Glomerular fi ltration rate.predicted panel (S/P/Bld)Ordered By: Rodolfo Harley on 08-12-2022 Creatinine [Mass/Vol] 0.74 mg/dL 0.44-1.03 [facility] Eosinophils Auto (Bld) [#/Vo l]Ordered By: Rodolfo Harley on 08-12-2022 Eosinophils (Bld) [#/Vol] 0.0 10*3/uL 0.0-0.45 [facility] Eosinophils/100 WBC Auto (Bl d)Ordered By: Rodolfo Harley on 08-12-2022 Eosinophils/100 WBC (Bld) 0.0 % . [facility] Erythrocyte distribution wid th Auto (RBC) [Ratio]Ordered By: Rodolfo Harley on 08-12-2022 Erythrocyte distribution width (RBC) [Ratio] 14.2 % 11.9-15.3 [facility] Estimated glomerular filtrat ion rate (GFR) non- AmericanOrdered By: Rodolfo Harley on 08-12-2022 GFR/1.73 sq M.predicted among non-blacks MDRD (S/P/Bld) [Vol rate/Area] > 60 mL/Min [facility] Hematocrit Auto (Bld) [Volum e fraction]Ordered By: Rodolfo Harley on 08-12-2022 Hematocrit (Bld) [Volume fraction] 38.0 % 34.0-46.4 [facility] Hemoglobin [Mass/volume] in BloodOrdered By: Rodolfo Harley on 08-12-2022 Hemoglobin (Bld) [Mass/Vol] 12.5 g/dL 11.8-15.4 [facility] - Hematology and Cell countsOrdered By: Rodolfo Harley on 08-12-2022 Nucleated RBC/100 WBC (Bld) [Ratio] 0.1 % 0-0.5 [facility] Leukocytes [#/volume] in Blo od by Automated countOrdered By: Rodolfo Harley on 08-12-2022 WBC (Bld) [#/Vol] 5.8 10*3/uL 4.5-11.0 [facility] Lymphocytes Auto (Bld) [#/Vo l]Ordered By: Rodolfo Harley on 08-12-2022 Lymphocytes (Bld) [#/Vol] 0.7 10*3/uL 1.00-4.8 [facility] Lymphocytes/100 WBC Auto (Bl d)Ordered By: Rodolfo Harley on 08-12-2022 Lymphocytes/100 WBC (Bld) 11.4 % . [facility] MCH Auto (RBC) [Entitic mass ]Ordered By: Rodolfo Harley on 08-12-2022 MCH (RBC) [Entitic mass] 28.1 pg 24.7-34.3 [facility] MCHC Auto (RBC) [Mass/Vol]Or dered By: Rodolfo Harley on 08-12-2022 MCHC (RBC) [Mass/Vol] 32.9 g/dL 32.0-35.0 [facility] MCV Auto (RBC) [Entitic vol] Ordered By: Rodolfo Harley on 08-12-2022 MCV (RBC) [Entitic vol] 85.4 fL 80-100 [facility] Monocytes Auto (Bld) [#/Vol] Ordered By: Rodolfo Harley on 08-12-2022 Monocytes (Bld) [#/Vol] 0.3 10*3/uL 0.0-0.8 [facility] Monocytes/100 WBC Auto (Bld) Ordered By: Rodolfo aHrley on 08-12-2022 Monocytes/100 WBC (Bld) 4.8 % . [facility] Neutrophils Auto (Bld) [#/Vo l]Ordered By: Rodolfo Harley on 08-12-2022 Neutrophils (Bld) [#/Vol] 4.8 10*3/uL 1.8-7.7 [facility] Neutrophils/100 WBC Auto (Bl d)Ordered By: Rodolfo Harley on 08-12-2022 Neutrophils/100 WBC (Bld) 83.4 % . [facility] No Panel InformationOrdered By: Rodolfo Harley on 08-12-2022 Estimated GFR () > 60 mL/Min [facility] Comment on above: GFR estimated refere nce range: According to KDOQI guidelines, <60 ml/min/1.73m2 is sufficient to diagnose a patient with chronic kidney disease. Pharmacy Creatinine Clearance (Chem 59.45 [facility] Platelet mean volume Auto (B ld) [Entitic vol]Ordered By: Rodolfo Harley on 08-12-2022 Platelet mean volume (Bld) [Entitic vol] 7.9 fL 6.3-10.7 [facility] Platelets Auto (Bld) [#/Vol] Ordered By: Rodolfo Harley on 08-12-2022 Platelets (Bld) [#/Vol] 196 10*3/uL 150-450 [facility] RBC Auto (Bld) [#/Vol]Ordere d By: Rodolfo Harley on 08-12-2022 RBC (Bld) [#/Vol] 4.45 10*6/uL 3.60-5.00 [facility] Serum or plasma anion gap de terminationOrdered By: Rodolfo Harley on 08-12-2022 Anion gap [Moles/Vol] 7.5 mmol/L 6.0-15.0 [facility] Serum or plasma calcium dagoberto urement (mass/volume)Ordered By: Rodolfo Harley on 08-12-2022 Calcium [Mass/Vol] 8.7 mg/dL 8.2-10.2 [facility] Serum or plasma chloride anahy surement (moles/volume)Ordered By: Rodolfo Harley on 08-12-2022 Chloride [Moles/Vol] 108 mmol/L 95-114 [facility] Serum or plasma glucose dagoberto urement (mass/volume)Ordered By: Rodolfo Harley on 08-12-2022 Glucose [Mass/Vol] 133 mg/dL 70-100 [facility] Comment on above: ADA recommended refe rence rangeRandom Glucose Reference Range is dependent on time and content of last meal. Glucose of more than 200 mg/dL in a nonstressed, ambulatory subject supports the diagnosis of Diabetes Mellitus. Serum or plasma potassium me asurement (moles/volume)Ordered By: Rodolfo Harley on 08-12-2022 Potassium [Moles/Vol] 3.7 mmol/L 3.5-5.1 [facility] Serum or plasma sodium measu rement (moles/volume)Ordered By: Rodolfo Harley on 08-12-2022 Sodium [Moles/Vol] 139 mmol/L 136-146 [facility] Serum or plasma total carbon dioxide measurement (moles/volume)Ordered By: Rodolfo Harley on 08-12-2022 CO2 [Moles/Vol] 27.2 mmol/L 22.0-30.0 [facility] Serum or plasma urea nitroge n measurement (mass/volume)Ordered By: Rodolfo Harley on 08-12-2022 Urea nitrogen [Mass/Vol] 14 mg/dL 9-23 [facility] ABO and Rh group post transf usion reaction Nom (Bld)Ordered By: Rodolfo Harley on 08-10-2022 Microscopic observation Gram stain Nom (Unsp spec) [facility] [employer] cultureOrdered By: Sissy Harley on 08-10-2022 Mycobacterium sp identified Org specific cx Nom (Unsp spec) [facility] [employer] smearOrdered By: Rodolfo Harley on 08-10-2022 Microscopic observation Smear Nom (Unsp spec) [facility] Aerobic cultureOrdered By: Margie Harley on 08-10-2022 Bacteria identified Aer cx Nom (Unsp spec) No Growth 2 Days [facility] Anaerobic cultureOrdered By: Rodolfo Harley on 08-10-2022 Bacteria identified Anaer cx Nom (Unsp spec) No Anaerobes Isolated 3 Days [facility] Arterial blood standard base excess determination by calculationOrdered By: Rodolfo Harley on 08-10-2022 Base excess standard Calc (BldA) [Moles/Vol] 5 mmol/L -2-3 [facility] Blood carbon dioxide, total measurement by calculation (moles/volume)Ordered By: Rodolfo Harley on 08-10-2022 CO2 Calc (Bld) [Moles/Vol] 30 mmol/L 23-[address] [facility] [address] biopsyOrdered By: Rodolfo Harley on 08-10-2022 Hematocrit (Bld) [Volume fraction] 40.0 % 38.0-51.0 [facility] Fungal cultureOrdered By: Rolanda Harley on 08-10-2022 Fungus identified Cx Nom (Unsp spec) [facility] Glucose Glucometer (BldC) [M ass/Vol]Ordered By: Rodolfo Harley on 08-10-2022 Glucose [Mass/Vol] 126 mg/dL 70-105 [facility] Gram stain for investigation of transfusion reactionOrdered By: Rodolfo Harley on 08-10-2022 Microscopic observation Gram stain Nom (Unsp spec) [facility] Hemoglobin Calc (Bld) [Mass/ Vol]Ordered By: Rodolfo Harley on 08-10-2022 Hemoglobin (Bld) [Mass/Vol] 13.6 g/dL 12.0-17.0 [facility] Monocyte %Ordered By: Jean Harley on 08-10-2022 Monocyte % 39.9 mm[Hg] 35-51 [facility] Monocyte % 45 mm[Hg] 80-105 [facility] No Panel InformationOrdered By: Rodolfo Harley on 08-10-2022 Chlamydia psittaci Antibodies <1:10 Neg:<1:10 [facility] Comment on above: This test was develo ped and its performance characteristicsdetermined by [facility]. It has not been cleared or approvedby the Food and Drug Administration. The FDA hasdetermined that such clearance or approval is notnecessary.Performed at: - [facility] [id number] [place], [place] [id number] Director: Shelly Vargas MD, Phone: [phone] Potassium (Bld) [Moles/Vol]O rdered By: Rodolfo Harley on 08-10-2022 Potassium [Moles/Vol] 3.8 mmol/L 3.5-4.9 [facility] Sodium (Bld) [Moles/Vol]Orde red By: Rodolfo Harley on 08-10-2022 Sodium [Moles/Vol] 141 mmol/L 138-146 [facility] Whole blood bicarbonate dagoberto urementOrdered By: Rodolfo Harley on 08-10-2022 HCO3 (Bld) [Moles/Vol] 29.1 mmol/L 22.0-28.0 [facility] Whole blood ionized calcium measurement (moles/volume)Ordered By: Rodolfo Harley on 08-10-2022 Calcium.ionized (Bld) [Moles/Vol] 1280 mmol/L 1.12-1.32 [facility] Whole blood oxygen saturatio n measurementOrdered By: Rodolfo Harley on 08-10-2022 Oxygen saturation in Blood 84 % 95-98 [facility] Comment on above: Reference ranges ref lect baseline specimens only Whole blood pHOrdered By: Rolanda Harley on 08-10-2022 pH (Bld) 7.470 Units 7.31-7.45 [facility] Urine culture routineOrdered By: Rodolfo Harley on 08-07-2022 Bacteria identified Cx Nom (U) 2 Days [facility] Activated partial thrombopla stin time (aPTT) in platelet poor plasma by coagulation aOrdered By: Rodolfo Harley on 08-05-2022 aPTT Coag (PPP) [Time] 35.9 s 25.1-36.5 [facility] Basophils Auto (Bld) [#/Vol] Ordered By: Rodolfo Harley on 08-05-2022 Basophils (Bld) [#/Vol] 0.0 10*3/uL 0.0-0.2 [facility] Basophils/100 WBC Auto (Bld) Ordered By: Rodolfo Harley on 08-05-2022 Basophils/100 WBC (Bld) 0.5 % . [facility] Body fluid albumin measureme nt (mass/volume)Ordered By: Rodolfo Harley on 08-05-2022 Albumin (Body fld) [Mass/Vol] 3.8 g/dL 3.2-5.5 [facility] COVID-19 Positive/NegativeOr dered By: Rodolfo Harley on 08-05-2022 SARS-CoV-2 (COVID-19) N gene PAVAN+probe Ql (Resp) Negative Negative [facility] Comment on above: Testing for SARS-CoV -2 by RT-PCRThis test was developed and its performance characteristics determined by [employer] ([employer]) and validated at the [facility]. This test has not been FDA [...] on 08-05-2022 Creatinine [Mass/Vol] 0.97 mg/dL 0.44-1.03 [facility] Eosinophils Auto (Bld) [#/Vo l]Ordered By: Rodolfo Harley on 08-05-2022 Eosinophils (Bld) [#/Vol] 0.2 10*3/uL 0.0-0.45 [facility] Eosinophils/100 WBC Auto (Bl d)Ordered By: Rodolfo Harley on 08-05-2022 Eosinophils/100 WBC (Bld) 4.9 % . [facility] Erythrocyte distribution wid th Auto (RBC) [Ratio]Ordered By: Rodolfo Harley on 08-05-2022 Erythrocyte distribution width (RBC) [Ratio] 14.5 % 11.9-15.3 [facility] Estimated glomerular filtrat ion rate (GFR) non- AmericanOrdered By: Rodolfo Harley on 08-05-2022 GFR/1.73 sq M.predicted among non-blacks MDRD (S/P/Bld) [Vol rate/Area] 59 mL/Min [facility] FUNGAL CULTUREon 08-05-2022 Fungus (Mycology) Culture Final report Abnormal [facility] Comment on above: Performed By: #### C XFUN ####[facility] [address] [place], [place] [address]Dr. Shahbaz Rogel Fungus Stain Final report Normal [facility] Comment on above: Performed By: #### C XFUN ####[facility] [address] [place], [place] [address]Dr. Shahbaz Rogel Result 1 Comment Abnormal [facility] Comment on above: Result Comment: MILADYS/ Calcofluor preparation: no fungus observed. Performed By: #### C XFUN ####[facility] [address] [place], [place] [address]Dr. Shahbaz Rogel Result Comment: Aspe rgillus versicolor Result 2 Penicillium species Abnormal [facility] Comment on above: Performed By: #### C XFUN ####[facility] [address] [place], [place] [address]Dr. Shahbaz Rogel Globulin Calc (S) [Mass/Vol] Ordered By: Rodolfo Harley on 08-05-2022 Globulin (S) [Mass/Vol] 2.9 g/dL [facility] Hematocrit Auto (Bld) [Volum e fraction]Ordered By: Rodolfo Harley on 08-05-2022 Hematocrit (Bld) [Volume fraction] 43.3 % 34.0-46.4 [facility] Hemoglobin [Mass/volume] in BloodOrdered By: Rodolfo Harley on 08-05-2022 Hemoglobin (Bld) [Mass/Vol] 14.3 g/dL 11.8-15.4 [facility] - CoagulationOrde red By: Rodolfo Harley on 08-05-2022 PT Coag (PPP) [Time] 12.4 s 9.0-12.9 [facility] Laboratory - Hematology and Cell countsOrdered By: Rodolfo Harley on 08-05-2022 Nucleated RBC/100 WBC (Bld) [Ratio] 0.0 % 0-0.5 [facility] Leukocytes [#/volume] in Blo od by Automated countOrdered By: Rodolfo Harley on 08-05-2022 WBC (Bld) [#/Vol] 3.4 10*3/uL 4.5-11.0 [facility] Lymphocytes Auto (Bld) [#/Vo l]Ordered By: Rodolfo Harley on 08-05-2022 Lymphocytes (Bld) [#/Vol] 0.9 10*3/uL 1.00-4.8 [facility] Lymphocytes/100 WBC Auto (Bl d)Ordered By: Rodolfo Harley on 08-05-2022 Lymphocytes/100 WBC (Bld) 27.2 % . [facility] MCH Auto (RBC) [Entitic mass ]Ordered By: Rodolfo Harley on 08-05-2022 MCH (RBC) [Entitic mass] 28.4 pg 24.7-34.3 [facility] MCHC Auto (RBC) [Mass/Vol]Or dered By: Rodolfo Harley on 08-05-2022 MCHC (RBC) [Mass/Vol] 33.1 g/dL 32.0-35.0 [facility] MCV Auto (RBC) [Entitic vol] Ordered By: Rodolfo Harley on 08-05-2022 MCV (RBC) [Entitic vol] 85.9 fL 80-100 [facility] Monocytes Auto (Bld) [#/Vol] Ordered By: Rodolfo Harley on 08-05-2022 Monocytes (Bld) [#/Vol] 0.3 10*3/uL 0.0-0.8 [facility] Monocytes/100 WBC Auto (Bld) Ordered By: Rodolfo Harley on 08-05-2022 Monocytes/100 WBC (Bld) 7.5 % . [facility] Neutrophils Auto (Bld) [#/Vo l]Ordered By: Rodolfo Harley on 08-05-2022 Neutrophils (Bld) [#/Vol] 2.0 10*3/uL 1.8-7.7 [facility] Neutrophils/100 WBC Auto (Bl d)Ordered By: Rodolfo Harley on 08-05-2022 Neutrophils/100 WBC (Bld) 59.9 % . [facility] No Panel InformationOrdered By: Rodolfo Harley on 08-05-2022 Estimated GFR () > 60 mL/Min [facility] Comment on above: GFR estimated refere nce range: According to KDOQI guidelines, <60 ml/min/1.73m2 is sufficient to diagnose a patient with chronic kidney disease. Pharmacy Creatinine Clearance (Chem N/A [facility] Platelet mean volume Auto (B ld) [Entitic vol]Ordered By: Rodolfo Harley on 08-05-2022 Platelet mean volume (Bld) [Entitic vol] 8.1 fL 6.3-10.7 [facility] Platelet poor plasma interna tional normalized ratio (INR) by coagulation assay (relatOrdered By: Rodolfo Harley on 08-05-2022 INR Coag (PPP) [Relative time] 1.1 {INR} [facility] Comment on above: INR Therapeutic Rang [...] 08-05-2022 Platelets (Bld) [#/Vol] 243 10*3/uL 150-450 [facility] Protein [Mass/volume] in Ser um or PlasmaOrdered By: Rodolfo Harley on 08-05-2022 Protein [Mass/Vol] 6.7 g/dL 6.1-7.9 [facility] RBC Auto (Bld) [#/Vol]Ordere d By: Rodolfo Harley on 08-05-2022 RBC (Bld) [#/Vol] 5.04 10*6/uL 3.60-5.00 [facility] Serum or plasma alanine snyder otransferase measurement without P-5'-P (enzymatic activiOrdered By: Rodolfo Harley on 08-05-2022 ALT No additional P-5'-P [Catalytic activity/Vol] 14 U/L 10-60 [facility] Serum or plasma albumin/glob ulin mass ratioOrdered By: Rodolfo Harley on 08-05-2022 Albumin/Globulin [Mass ratio] 1.3 {ratio} [facility] Serum or plasma alkaline sruthi sphatase measurement (enzymatic activity/volume)Ordered By: Rodolfo Harley on 08-05-2022 ALP [Catalytic activity/Vol] 91 U/L 32-92 [facility] Serum or plasma anion gap de terminationOrdered By: Rodolfo Harley on 08-05-2022 Anion gap [Moles/Vol] 14.3 mmol/L 6.0-15.0 [facility] Serum or plasma aspartate am inotransferase measurement (enzymatic activity/volume)Ordered By: Rodolfo Harley on 08-05-2022 AST [Catalytic activity/Vol] 21 U/L 10-42 [facility] Serum or plasma calcium dagoberto urement (mass/volume)Ordered By: Rodolfo Harley on 08-05-2022 Calcium [Mass/Vol] 9.5 mg/dL 8.2-10.2 [facility] Serum or plasma chloride anahy surement (moles/volume)Ordered By: Rodolfo Harley on 08-05-2022 Chloride [Moles/Vol] 102 mmol/L 95-114 [facility] Serum or plasma glucose dagoberto urement (mass/volume)Ordered By: Rodolfo Harley on 08-05-2022 Glucose [Mass/Vol] 76 mg/dL 70-100 [facility] Comment on above: ADA recommended refe rence rangeRandom Glucose Reference Range is dependent on time and content of last meal. Glucose of more than 200 mg/dL in a nonstressed, ambulatory subject supports the diagnosis of Diabetes Mellitus. Serum or plasma potassium me asurement (moles/volume)Ordered By: Rodolof Harley on 08-05-2022 Potassium [Moles/Vol] 3.8 mmol/L 3.5-5.1 [facility] Serum or plasma sodium measu rement (moles/volume)Ordered By: Rodolfo Harley on 08-05-2022 Sodium [Moles/Vol] 138 mmol/L 136-146 [facility] Serum or plasma total biliru bin measurement (mass/volume)Ordered By: Rodolfo Harley on 08-05-2022 Bilirubin [Mass/Vol] 0.7 mg/dL 0.3-1.2 [facility] Serum or plasma total carbon dioxide measurement (moles/volume)Ordered By: Rodolfo Harley on 08-05-2022 CO2 [Moles/Vol] 25.5 mmol/L 22.0-30.0 [facility] Serum or plasma urea nitroge n measurement (mass/volume)Ordered By: Rodolfo Harley on 08-05-2022 Urea nitrogen [Mass/Vol] 12 mg/dL 06-24 [facility] Urine culture routineOrdered By: Rodolfo Harley on 08-05-2022 Bacteria identified Cx Nom (U) 2 Days [facility] XR ANKLE LT MIN 3 Von 2021 XR ANKLE LT MIN 3 V Normal [facility] BNPon 07-06-2022 Natriuretic peptide B (Bld) [Mass/Vol] 843.0 pg/mL Normal <=900.0 [facility] Comment on above: Performed By: #### B OPERATIONAL RISK CONSULTANT, CRP, CMP ####[facility] [address] [place] [address]DrChen Rogel CBC W MANUAL DIFFon 07-06-20 22 ATYPICAL LYMPH # Normal [facility] Comment on above: Performed By: #### C BCBRICE ####[facility] [address] [place] [id number] Rogel ATYPICAL LYMPH % Normal [facility] Comment on above: Performed By: #### C BCMAN ####[facility] [address] [place] [id number] Rogel BAND # 0.0 103/ul Normal 0.0-0.3 [facility] Comment on above: Performed By: #### C BCMAN ####[facility] [address] [place] [address]Dr. Shahbaz Rogel BAND % 0 % Normal 0-5 [facility] Comment on above: Performed By: #### C BCMAN ####[facility] [address] [place] [id number]. Yijarrod Rogel BASOM # 0.00 103/ul Normal 0.00-0.10 [facility] Comment on above: Performed By: #### C BCMAN ####[facility] [address] [place] [address]Dr. Yijarrod Rogel BASOM % 0.0 % Critically low 0.2-2.0 [facility] Comment on above: Performed By: #### C BCBRICE ####[facility] [address] [place], [place] [address]Dr. Yijarrod Rogel BLAST # Normal [facility] Comment on above: Performed By: #### C BCBRICE ####[facility] [address] [place], [place] [address]Dr. Yijarrod Rogel BLAST % Normal [facility] Comment on above: Performed By: #### C BCMAN ####[facility] [address] [place], [place] [address]Dr. Shahbaz Rogel CORRECTED WBC Normal 4.0-11.0 [facility] Comment on above: Performed By: #### C BCMAN ####[facility] [address] [place], [place] [address]Dr. Yijarrod Rogel EOS # 0.00 103/ul Normal 0.00-0.70 [facility] Comment on above: Performed By: #### C BCMAN ####[facility] [address] [place], [place] [address]Dr. Yijarrod Rogel EOS% 0.0 % Critically low 0.9-7.0 [facility] Comment on above: Performed By: #### C BCMAN ####[facility] [address] [place], [place] [address]Dr. Yilan Rogel HCT 40.3 % Normal 36.0-48.0 [facility] Comment on above: Performed By: #### C CAIN ####[facility] [address] [place] [phone]. Shahbaz Rogel HGB 12.7 g/dl Normal 12.0-16.0 [facility] Comment on above: Performed By: #### C CAIN ####[facility] [address] [place] [phone]. Shahbaz Rogel LYMPHM # 0.41 103/ul Critically low 1.20-3.80 [facility] Comment on above: Performed By: #### C CAIN ####[facility] [address] [place] [phone]. Shahbaz Rogel LYMPHM% 7.0 % Critically low 20.5-60.0 [facility] Comment on above: Performed By: #### C CAIN ####[facility] [address] [place] [phone]. Shahbaz Rogel MCH 28.0 pg Normal 26.7-34.0 [facility] Comment on above: Performed By: #### C CAIN ####[facility] [address] [place] [phone]. Shahbaz Rogel MCHC 31.5 g/dl Normal 29.9-35.2 [facility] Comment on above: Performed By: #### C CAIN ####[facility] [address] [place] [phone]. Shahbaz Rogel MCV 89.0 fL Normal 81.0-99.0 [facility] Comment on above: Performed By: #### C ACIN ####[facility] [address] [place] [phone]. Shahbaz Rogel METAMYELOCYTE # Normal [facility] Comment on above: Performed By: #### C CAIN ####[facility] [address] [place] [phone]. Shahbaz Rogel METAMYELOCYTE % Normal [facility] Comment on above: Performed By: #### C CAIN ####[facility] [address] [place] [address]Dr. Shahbaz Rogel MONOM# 0.00 103/ul Critically low 0.30-0.80 [facility] Comment on above: Performed By: #### C CAIN ####[facility] [address] [place] [address]Dr. Shahbaz Rogel MONOM% 0.0 % Critically low 1.7-12.0 [facility] Comment on above: Performed By: #### C CAIN ####[facility] [address] [place] [address]Dr. Shahbaz Rogel MPV 9.8 fL Normal 9.5-13.5 [facility] Comment on above: Performed By: #### C CAIN ####[facility] [address] [place], [place] [address]Dr. Shahbaz Rogel MYELOCYTE # Normal [facility] Comment on above: Performed By: #### C CAIN ####[facility] [address] [place], [place] [address]Dr. Shahbaz Rogel MYELOCYTE % Normal [facility] Comment on above: Performed By: #### C CAIN ####[facility] [address] [place], [place] [address]Dr. Shahbaz Rogel NRBC Normal [facility] Comment on above: Performed By: #### C CAIN ####[facility] [address] [place] [address]Dr. Shahbaz Rogel PLT 187 103/ul Normal 150-450 [facility] Comment on above: Performed By: #### C CAIN ####[facility] [address] [place], [place] [address]Dr. Shahbaz Rogel RBC 4.53 106/ul Normal 4.20-5.40 [facility] Comment on above: Performed By: #### C CAIN ####[facility] Mgqoavoakx[address] [place], [place] [address]Dr. Shahbaz Rogel RDW 13.3 % Normal 11.0-15.0 [facility] Comment on above: Performed By: #### C CAIN ####[facility] Xghmjlcxqq[address] [place] [address]Dr. Shahbaz Rogel SEG # 5.49 103/ul Normal 1.40-6.50 [facility] Comment on above: Performed By: #### C CAIN ####[facility] Mjgtzrxexv[address] [place], [place] [address]Dr. Shahbaz Rogel SEG % 93.0 % Critically high 43.0-75.0 [facility] Comment on above: Performed By: #### C CAIN ####[facility] Vylizcaohe[address] [place], [place] [address]Dr. Shahbaz Rogel WBC 5.9 103/ul Normal 4.0-11.0 [facility] Comment on above: Performed By: #### C CAIN ####[facility] Ejgmokswen[address] [place], [place] [address]Dr. Shahbaz Rogel CRPon 07-06-2022 CRP [Mass/Vol] mg/L Normal <=1.0 [facility] Comment on above: Performed By: #### B OPERATIONAL RISK CONSULTANT, CRP, CMP ####[facility] Omoohuddbw[address] [place], [place] [address]Dr. Lilajarrod Rogel PROF 14(COMP METB)on 022 Albumin [Mass/Vol] 3.4 g/dL Normal 3.4-5.0 [facility] Comment on above: Performed By: #### B OPERATIONAL RISK CONSULTANT, CRP, CMP ####[facility] Spkechhouy[address] [place], [place] [address]Dr. Shahbaz Rogel Albumin/Globulin [Mass ratio] 1.0 {ratio} Normal [facility] Comment on above: Performed By: #### B OPERATIONAL RISK CONSULTANT, CRP, CMP ####[facility] Dibdbetprw[address] [place], [place] [address]Dr. Shahbaz Rogel ALP [Catalytic activity/Vol] 92 U/L Normal 46-116 [facility] Comment on above: Performed By: #### B OPERATIONAL RISK CONSULTANT, CRP, CMP ####[facility] Yzbhhmkmsf[address] [place], [place] [address]Dr. Shahbaz Rogel ALT [Catalytic activity/Vol] 21 U/L Normal 14-59 [facility] Comment on above: Performed By: #### B OPERATIONAL RISK CONSULTANT, CRP, CMP ####[facility] Lkfsbwvqod[address] [place] [address]Dr. Shahbaz Rogel Anion gap [Moles/Vol] 13.4 mmol/L Normal Th [facility] Comment on above: Performed By: #### B OPERATIONAL RISK CONSULTANT, CRP, CMP ####[facility] Gwqibmfqfd2[address] [place] [address]Dr. Shahbaz Rogel AST [Catalytic activity/Vol] 16 U/L Normal 15-37 [facility] Comment on above: Performed By: #### B OPERATIONAL RISK CONSULTANT, CRP, CMP ####[facility] Jtgqcomdxz[address] [place], [place] [address]Dr. Shahbaz Rogel Bilirubin [Mass/Vol] 0.2 mg/dL Normal 0.2-1.0 [facility] Comment on above: Performed By: #### B OPERATIONAL RISK CONSULTANT, CRP, CMP ####[facility] Jqenndmfgj[address] [place], [place] [address]Dr. Shahbaz Rogel Calcium [Mass/Vol] 9.3 mg/dL Normal 8.5-10.1 [facility] Comment on above: Performed By: #### B OPERATIONAL RISK CONSULTANT, CRP, CMP ####[facility] Kbzemtabam[address] [place], [place] [address]Dr. Shahbaz Rogel Chloride [Moles/Vol] 105 mmol/L Normal 98-107 [facility] Comment on above: Performed By: #### B OPERATIONAL RISK CONSULTANT, CRP, CMP ####[facility] Pemndjueph[address] [place], [place] [address]Dr. Shahbaz Rogel CO2 [Moles/Vol] 23.2 mmol/L Normal 21.0-32.0 [facility] Comment on above: Performed By: #### B OPERATIONAL RISK CONSULTANT, CRP, CMP ####[facility] Rrcvbjybbq[address] [place], [place] [address]Dr. Shahbaz Rogel Creatinine [Mass/Vol] 1.23 mg/dL Critically high 0.55-1.02 [facility] Comment on above: Performed By: #### B OPERATIONAL RISK CONSULTANT, CRP, CMP ####[facility] Xylpmwzums[address] [place], [place] [address]Dr. Shahbaz Rogel EGFR-AF PORTUGUESE 55 mL/min/1.73m2 Critically low >=60 [facility] Comment on above: Performed By: #### B OPERATIONAL RISK CONSULTANT, CRP, CMP ####[facility] Rdwuvmgvwl[address] [place] [address]Dr. Shahbaz Rogel EGFR-NON AF PORTUGUESE 45 mL/min/1.73m2 Critically low >=60 [facility] Comment on above: Performed By: #### B OPERATIONAL RISK CONSULTANT, CRP, CMP ####[facility] Cqkfrnrldp[address] [place], [place] [address]Dr. Shahbaz Rogel Globulin (S) [Mass/Vol] 3.3 g/dL Normal [facility] Comment on above: Performed By: #### B OPERATIONAL RISK CONSULTANT, CRP, CMP ####[facility] Wofpuwumqd[address] [place], [place] [address]Dr. Shahbaz Rogel Glucose [Mass/Vol] 171 mg/dL Critically high 74-106 [facility] Comment on above: Performed By: #### B OPERATIONAL RISK CONSULTANT, CRP, CMP ####[facility] Eizgcoeyih[address] [place], [place] [address]Dr. Shahbaz Rogel Potassium [Moles/Vol] 3.6 mmol/L Normal 3.5-5.1 [facility] Comment on above: Performed By: #### B OPERATIONAL RISK CONSULTANT, CRP, CMP ####[facility] Snpxprvczm[address] [place], [place] [address]Dr. Shahbaz Rogel Protein [Mass/Vol] 6.7 g/dL Normal 6.4-8.2 [facility] Comment on above: Performed By: #### B OPERATIONAL RISK CONSULTANT, CRP, CMP ####[facility] Tbnmppehwo[address] [place], [place] [address]Dr. Shahbaz Rogel Sodium [Moles/Vol] 138 mmol/L Normal 136-145 [facility] Comment on above: Performed By: #### B OPERATIONAL RISK CONSULTANT, CRP, CMP ####[facility] Qxgxvwsheq[address] [place] [address]Dr. Shahbaz Rogel Urea nitrogen [Mass/Vol] 21.0 mg/dL Critically high 7.0-18.0 [facility] Comment on above: Performed By: #### B OPERATIONAL RISK CONSULTANT, CRP, CMP ####[facility] Jksfcymhyo7[address] [place], [place] [address]Dr. Shahbaz Rogel Urea nitrogen/Creatinine [Mass ratio] 17.1 mg/mg Normal [facility] Comment on above: Performed By: #### B OPERATIONAL RISK CONSULTANT, CRP, CMP ####[facility] Dekepdencq4[address] [place], [place] [address]Dr. Shahbaz Rogel XR CHEST 2 Von 07-06-2022 XR CHEST 2 V Normal [facility] BNPon 07-05-2022 Natriuretic peptide B (Bld) [Mass/Vol] 83.0 pg/mL Normal <=900.0 [facility] Comment on above: Performed By: #### C RP, CMP, BNP ####[facility] Mvlwzvkand[address] [place], [place] [address]Dr. Shahbaz Rogel CBC AUTO DIFFon 07-05-2022 BASO # 0.0 103/ul Normal 0.0-0.1 [facility] Comment on above: Performed By: #### C BC ####[facility] Dhawzrdatd6[address] [place], [place] [address]Dr. Shahbaz Rogel Basophils/100 WBC (Bld) 0.4 % Normal 0.2-2.0 [facility] Comment on above: Performed By: #### C BC ####[facility] Lgpvsbphsg[address] [place], [place] [address]Dr. Shahbaz Rogel EO # 0.1 103/ul Normal 0.0-0.7 [facility] Comment on above: Performed By: #### C BC ####[facility] Fgxzdxwzws47[address] [place], [place] [address]Dr. Shahbaz Rogel Eosinophils/100 WBC (Bld) 2.9 % Normal 0.9-7.0 [facility] Comment on above: Performed By: #### C BC ####[facility] Spwtbeskkg8[address] [place], [place] [address]Dr. Shahbaz Rogel Erythrocyte distribution width (RBC) [Ratio] 13.4 % Normal 11.0-15.0 [facility] Comment on above: Performed By: #### C BC ####[facility] Yxh[address]fikfk[address] [place] [address]Dr. Shahbaz Rogel Hematocrit (Bld) [Volume fraction] 41.7 % Normal 36.0-48.0 [facility] Comment on above: Performed By: #### C BC ####[facility] Jgywvyrvcv28[address] [place] [address]Dr. Shahbaz Rogel Hemoglobin (Bld) [Mass/Vol] 12.9 g/dL Normal 12.0-16.0 [facility] Comment on above: Performed By: #### C BC ####[facility] Ahwzhmviov[address] [place], [place] [address]Dr. Shahbaz Rogel IG # 0.00 10e3/ul Normal 0.00-0.03 [facility] Comment on above: Performed By: #### C BC ####[facility] Txrywwtbab[address] [place], [place] [address]Dr. Shahbaz Rogel IG % 0.0 % Normal 0.0-0.5 [facility] Comment on above: Performed By: #### C BC ####[facility] Ieerelucis7[address] [place], [place] [address]Dr. Lilajarrod Rogel LYMPH # 1.5 103/ul Normal 1.2-3.8 [facility] Comment on above: Performed By: #### C BC ####[facility] Zvztqsiand[address] [place], [place] [address]Dr. Lilajarrod Rogel Lymphocytes/100 WBC (Bld) 32.9 % Normal 20.5-60.0 [facility] Comment on above: Performed By: #### C BC ####[facility] [address]xbnj[address] [place] [address]DrChen Lilajarrod Rogel MANUAL DIFF REQ NO Normal [facility] Comment on above: Performed By: #### C BC ####[facility] Hgtwrovwya[address] [place], [place] [address]DrChen Lilajarrod Rogel MCH (RBC) [Entitic mass] 28.0 pg Normal 26.7-34.0 [facility] Comment on above: Performed By: #### C BC ####[facility] Sebqwzvfei[address] [place], [place] [address]Dr. Shahbaz Rogel MCHC (RBC) [Mass/Vol] 30.9 g/dL Normal 29.9-35.2 [facility] Comment on above: Performed By: #### C BC ####[facility] [address]mhocfommv39[address] [place] [id number]. Shahbaz Juan F MCV (RBC) [Entitic vol] 90.5 fL Normal 81.0-99.0 [facility] Comment on above: Performed By: #### C BC ####[facility] Kwdemghxap8136 [place] [address]Dr. Shahbaz Juan F MONO # 0.4 103/ul Normal 0.3-0.8 [facility] Comment on above: Performed By: #### C BC ####[facility] Wkofukkhcs[address] [place] [address]Dr. Shahbaz Rogel Monocytes/100 WBC (Bld) 8.0 % Normal 1.7-12.0 [facility] Comment on above: Performed By: #### C BC ####[facility] Whsgsmargl[address] [place], [place] [address]Dr. Shahbaz Rogel NEUT # 2.5 103/ul Normal 1.4-6.5 [facility] Comment on above: Performed By: #### C BC ####[facility] Ggspvlidtg[address] [place] [address]Dr. Lilajarrod Rogel Neutrophils/100 WBC (Bld) 55.8 % Normal 43.0-75.0 [facility] Comment on above: Performed By: #### C BC ####[facility] Todfulrgip36[address] [place] [address]Dr. Shahbaz Rogel Platelet mean volume (Bld) [Entitic vol] 9.7 fL Normal 9.5-13.5 [facility] Comment on above: Performed By: #### C BC ####[facility] Wktpoydpew[address] [place] [address]Dr. Shahbaz Rogel PLT 158 103/ul Normal 150-450 [facility] Comment on above: Performed By: #### C BC ####[facility] Rbxnaejsqt4316 [place] [address]Dr. Shahbaz Rogel RBC 4.61 106/ul Normal 4.20-5.40 [facility] Comment on above: Performed By: #### C BC ####[facility] Liojvzgkyv64[address] [place] [address]Dr. Shahbaz Rogel WBC 4.5 103/ul Normal 4.0-11.0 [facility] Comment on above: Performed By: #### C BC ####[facility] Cokjjbrhbl[address] [place] [address]Dr. Shahbaz Rogel CRPon 07-05-2022 CRP [Mass/Vol] mg/L Normal <=1.0 [facility] Comment on above: Performed By: #### C RP, CMP, BNP ####[facility] Xtvijuldne[address] [place] [address]Dr. Shahbaz Juan F ECHO LIMITED STUDYon ECHO LIMITED STUDY Normal [facility] PROF 14(COMP METB)on Albumin [Mass/Vol] 3.2 g/dL Critically low 3.4-5.0 e [facility] Comment on above: Performed By: #### C RP, CMP, BNP ####[facility] Imjlmqohhf[address] [place] [address]Dr. Shahbaz Rogel Albumin/Globulin [Mass ratio] 1.0 {ratio} Normal [facility] Comment on above: Performed By: #### C RP, CMP, BNP ####[facility] Lmqmfvekqt3653 [place] [address]Dr. Shahbaz Juan F ALP [Catalytic activity/Vol] 88 U/L Normal 46-116 [facility] Comment on above: Performed By: #### C RP, CMP, BNP ####[facility] Xkekgytlar[address] [place] [address]Dr. Lilajarrod Rogel ALT [Catalytic activity/Vol] 17 U/L Normal 14-59 [facility] Comment on above: Performed By: #### C RP, CMP, BNP ####[facility] Iujurcaejr5308 [place] [address]Dr. Shahbaz Rogel Anion gap [Moles/Vol] 12.5 mmol/L Normal Th [facility] Comment on above: Performed By: #### C RP, CMP, BNP ####[facility] Qbwrwnzyfe1429 [place] [address]Dr. Shahbaz Rogel AST [Catalytic activity/Vol] 18 U/L Normal 15-37 [facility] Comment on above: Performed By: #### C RP, CMP, BNP ####[facility] Ihblrtaocq5170 [place] [address]Dr. Shahbaz Rogel Bilirubin [Mass/Vol] 0.3 mg/dL Normal 0.2-1.0 [facility] Comment on above: Performed By: #### C RP, CMP, BNP ####[facility] Vllxxygfdx[address] [place], [place] [address]Dr. Shahbaz Rogel Calcium [Mass/Vol] 8.9 mg/dL Normal 8.5-10.1 [facility] Comment on above: Performed By: #### C RP, CMP, BNP ####[facility] Tnappixyzz[address] [place], [place] [address]Dr. Shahbaz Rogel Chloride [Moles/Vol] 103 mmol/L Normal 98-107 [facility] Comment on above: Performed By: #### C RP, CMP, BNP ####[facility] Mfcbrgdxex[address] [place], [place] [address]Dr. Shahbaz Rogel CO2 [Moles/Vol] 28.1 mmol/L Normal 21.0-32.0 [facility] Comment on above: Performed By: #### C RP, CMP, BNP ####[facility] Sykcbysdrq[address] [place], [place] [address]Dr. Shahbaz Rogel Creatinine [Mass/Vol] 1.24 mg/dL Critically high 0.55-1.02 [facility] Comment on above: Performed By: #### C RP, CMP, BNP ####[facility] Noakufqcha4[address] [place], [place] [address]Dr. Shahbaz Rogel EGFR-AF PORTUGUESE 54 mL/min/1.73m2 Critically low >=60 [facility] Comment on above: Performed By: #### C RP, CMP, BNP ####[facility] Bhhfzztjbe75[address] [place] [id number]. Shahbaz Rogel EGFR-NON AF PORTUGUESE 45 mL/min/1.73m2 Critically low >=60 [facility] Comment on above: Performed By: #### C RP, CMP, BNP ####[facility] Pdreibvdmi7150 [place] [address]Dr. Shahbaz Rogel Globulin (S) [Mass/Vol] 3.1 g/dL Normal [facility] Comment on above: Performed By: #### C RP, CMP, BNP ####[facility] Yobesmhczg4822 [place] [address]Dr. Shahbaz Rogel Glucose [Mass/Vol] 115 mg/dL Critically high 74-106 [facility] Comment on above: Performed By: #### C RP, CMP, BNP ####[facility] Bzacahtscv9766 [place] [address]Dr. Shahbaz Rogel Potassium [Moles/Vol] 3.6 mmol/L Normal 3.5-5.1 [facility] Comment on above: Performed By: #### C RP, CMP, BNP ####[facility] Aazuswhrtp[address] [place] [address]Dr. Shahbaz Rogel Protein [Mass/Vol] 6.3 g/dL Critically low 6.4-8.[address] [facility] Comment on above: Performed By: #### C RP, CMP, BNP ####[facility] Tsqnledgvi2633 [place] [address]Dr. Shahbaz Rogel Sodium [Moles/Vol] 140 mmol/L Normal 136-145 [facility] Comment on above: Performed By: #### C RP, CMP, BNP ####[facility] Rjdavesiqr0309 [place] [address]Dr. Shahbaz Rogel Urea nitrogen [Mass/Vol] 18.0 mg/dL Normal 7.0-18.0 [facility] Comment on above: Performed By: #### C RP, CMP, BNP ####[facility] Scaifkybbg4452 [place] [address]Dr. Shahbaz Rogel Urea nitrogen/Creatinine [Mass ratio] 14.5 mg/mg Normal [facility] Comment on above: Performed By: #### C RP, CMP, BNP ####[facility] Aptxjwdfdy49[address] [place] [address]Dr. Shahbaz Rogel T3, TOTAL (TRIIODOTHYRONINE) on 07-05-2022 T3, TOTAL 95 ng/dL Normal 71-180 [facility] Comment on above: Performed By: #### T 3TOTAL ####[facility] Extmlpzaqm[address] [place], [place] [address]Dr. Shahbaz Rogel CARDIAC ROSALINA 3-6on 2 CK [Catalytic activity/Vol] 78 U/L Normal 26-192 [facility] Comment on above: Performed By: #### C MREP ####[facility] Ezzwbxofvm[address] [place], [place] [address]Dr. Shahbaz Rogel CK.MB [Mass/Vol] 1.44 ng/mL Normal <=3.60 [facility] Comment on above: Performed By: #### C MREP ####[facility] Jhbjemxeyf[address] [place], [place] [address]Dr. Shahbaz Juan F HSTROP 9.0 pg/mL Normal 4.0-51.3 [facility] Comment on above: Result Comment: CUT- OFF POINTS HAVE BEEN ESTABLISHED BASED ON THE FOURTH UNIVERSAL DEFINITIONS OF MYOCARDIALINFARCTION. THE UPPER REFERENCE LIMIT (URL) OF TROPONIN, DEFINED THE 99TH PERCENTILE OFcTnI DISTRIBUTION IN A REFERENCE POPULATION, HAS BEEN CONFIRMED THE DECISION THRESHOLDFOR MS DIAGNOSIS. Performed By: #### C MREP ####[facility] Ejoeikjgrn[address] [place], [place] [address]Dr. Lilajarrod Rogel CK [Catalytic activity/Vol] 88 U/L Normal 26-192 [facility] Comment on above: Performed By: #### C MREP ####[facility] Vjhggyadyd[address] [place], [place] [address]Dr. Shahbaz Rogel CK.MB [Mass/Vol] 1.38 ng/mL Normal <=3.60 [facility] Comment on above: Performed By: #### C MREP ####[facility] Gnhahrldya[address] [place], [place] [address]Dr. Shahbaz Rogel HSTROP 7.0 pg/mL Normal 4.0-51.3 [facility] Comment on above: Result Comment: CUT- OFF POINTS HAVE BEEN ESTABLISHED BASED ON THE FOURTH UNIVERSAL DEFINITIONS OF MYOCARDIALINFARCTION. THE UPPER REFERENCE LIMIT (URL) OF TROPONIN, DEFINED THE 99TH PERCENTILE OFcTnI DISTRIBUTION IN A REFERENCE POPULATION, HAS BEEN CONFIRMED THE DECISION THRESHOLDFOR MS DIAGNOSIS. Performed By: #### C MREP ####[facility] Mrfakmdxfc480[address] [place] [address]Dr. Shahbaz Rogel CARDIAC ROSALINA ADMITon 022 CK [Catalytic activity/Vol] 87 U/L Normal 26-192 [facility] Comment on above: Performed By: #### C CINDY PAZ ####[facility] [address] [place] [address]. Shahbaz Rogel CK.MB [Mass/Vol] 1.80 ng/mL Normal <=3.60 [facility] Comment on above: Performed By: #### C CINDY PAZ ####[facility] Zuvheuwyft[address] [place], [place] [address]Dr. Shahbaz Rogel HSTROP 7.6 pg/mL Normal 4.0-51.3 [facility] Comment on above: Result Comment: CUT- OFF POINTS HAVE BEEN ESTABLISHED BASED ON THE FOURTH UNIVERSAL DEFINITIONS OF MYOCARDIALINFARCTION. THE UPPER REFERENCE LIMIT (URL) OF TROPONIN, DEFINED THE 99TH PERCENTILE OFcTnI DISTRIBUTION IN A REFERENCE POPULATION, HAS BEEN CONFIRMED THE DECISION THRESHOLDFOR MS DIAGNOSIS. Performed By: #### C CINDY PAZ ####[facility] Qnnznrnbzh[address] [place] [address]Dr. Shahbaz Rogel LEN 67 ng/mL Normal 9-82 [facility] Comment on above: Performed By: #### C CINDY PAZ ####[facility] Ufmlegirah[address] [place] [address]Dr. Shahbaz Rogel CBC AUTO DIFFon 07-04-2022 BASO # 0.0 103/ul Normal 0.0-0.1 [facility] Comment on above: Performed By: #### C BC ####[facility] Bgtvklquhm4[address] [place] [id number]. Shahbaz Rogel Basophils/100 WBC (Bld) 0.7 % Normal 0.2-2.0 [facility] Comment on above: Performed By: #### C BC ####[facility] Fioiiekewr24[address] [place] [id number]. Shahbaz Rogel EO # 0.1 103/ul Normal 0.0-0.7 [facility] Comment on above: Performed By: #### C BC ####[facility] Aztqrijcup[address] [place] [address]Dr. Shahbaz Rogel Eosinophils/100 WBC (Bld) 3.4 % Normal 0.9-7.0 [facility] Comment on above: Performed By: #### C BC ####[facility] Khsxcuhlgq[address] [place], [place] [address]Dr. Shahbaz Rogel Erythrocyte distribution width (RBC) [Ratio] 13.3 % Normal 11.0-15.0 [facility] Comment on above: Performed By: #### C BC ####[facility] Qnjcckpuhp[address] [place], [place] [address]Dr. Shahbaz Rogel Hematocrit (Bld) [Volume fraction] 42.1 % Normal 36.0-48.0 [facility] Comment on above: Performed By: #### C BC ####[facility] F[address]bsyn[address]uc[address] [place], [place] [id number]. Shahbaz Rogel Hemoglobin (Bld) [Mass/Vol] 13.3 g/dL Normal 12.0-16.0 [facility] Comment on above: Performed By: #### C BC ####[facility] Awucnfmhsd5143 [place] [id number]. Shahbaz Rogel IG # 0.01 10e3/ul Normal 0.00-0.03 [facility] Comment on above: Performed By: #### C BC ####[facility] Bcixvgtzxy35[address] [place] [address]Dr. Shahbaz Rogel IG % 0.3 % Normal 0.0-0.5 [facility] Comment on above: Performed By: #### C BC ####[facility] Kmpqqxnuiv[address] [place] [phone]. Shahbaz Juan F LYMPH # 1.0 103/ul Critically low 1.2-3.8 [facility] Comment on above: Performed By: #### C BC ####[facility] Yahaztoezo1556 [place] [phone]. Shahbaz Rogel Lymphocytes/100 WBC (Bld) 35.6 % Normal 20.5-60.0 [facility] Comment on above: Performed By: #### C BC ####[facility] Umswuffhlp[address] [place] [address]Dr. Lilajarrod Rogel MANUAL DIFF REQ NO Normal [facility] Comment on above: Performed By: #### C BC ####[facility] Cbsczogleo[address]3 [place] [address]Dr. Shahbaz Juan F MCH (RBC) [Entitic mass] 27.9 pg Normal 26.7-34.0 [facility] Comment on above: Performed By: #### C BC ####[facility] Crbxztotcg9694 [place] [address]Dr. Shahbaz Rogel MCHC (RBC) [Mass/Vol] 31.6 g/dL Normal 29.9-35.2 [facility] Comment on above: Performed By: #### C BC ####[facility] Tudvhyuiwq1263 [place] [phone]. Shahbaz Juan F MCV (RBC) [Entitic vol] 88.3 fL Normal 81.0-99.0 [facility] Comment on above: Performed By: #### C BC ####[facility] Dleiltxroh2534 [place] [phone]. Shahbaz Juan F MONO # 0.2 103/ul Critically low 0.3-0.8 [facility] Comment on above: Performed By: #### C BC ####[facility] Vucrgroack6119 [place] [address]Dr. Shahbaz Juan F Monocytes/100 WBC (Bld) 7.9 % Normal 1.7-12.0 [facility] Comment on above: Performed By: #### C BC ####[facility] Ictiycjwmp9708 [place] [phone]. Shahbaz Rogel NEUT # 1.5 103/ul Normal 1.4-6.5 [facility] Comment on above: Performed By: #### C BC ####[facility] Cjgzpqotye7546 [place] [address]Dr. Shahbaz Rogel Neutrophils/100 WBC (Bld) 52.1 % Normal 43.0-75.0 [facility] Comment on above: Performed By: #### C BC ####[facility] Anprgkhhna4843 [place] [address]Dr. Shahbaz Rogel Platelet mean volume (Bld) [Entitic vol] 9.5 fL Normal 9.5-13.5 [facility] Comment on above: Performed By: #### C BC ####[facility] Dpjmjmsfdz6555 [place] [address]Dr. Shahbaz Rogel PLT 172 103/ul Normal 150-450 [facility] Comment on above: Performed By: #### C BC ####[facility] Xdqpzxhxvn[address] [place], [place] [address]Dr. Shahbaz Rogel RBC 4.77 106/ul Normal 4.20-5.40 [facility] Comment on above: Performed By: #### C BC ####[facility] [address] [place] [address]Dr. Shahbaz Rogel WBC 2.9 103/ul Critically low 4.0-11.0 [facility] Comment on above: Performed By: #### C BC ####[facility] Vwxksxwhip[address] [place], [place] [address]Dr. Shahbaz Rogel CELL COUNT BODY FLUIDon 10-0 -2021 BASOS Normal [facility] Comment on above: Performed By: #### B FCC ####[facility] Gokmwyadaa[address] [place], [place] [address]Dr. Shahbaz Rogel Eosinophils/100 WBC (Bld) 4 % Normal [facility] Comment on above: Performed By: #### B FCC ####[facility] Vuigwyfdnd34[address] [place], [place] [address]Dr. Shahbaz Juan F Lymphocytes/100 WBC (Bld) 12 % Normal [facility] Comment on above: Performed By: #### B FCC ####[facility] Otpbbbjxdm[address] [place] [address]Dr. Shahbaz Rogel Monocytes/100 WBC (Bld) 4 % Normal [facility] Comment on above: Performed By: #### B FCC ####[facility] Rqjwpadqwf[address] [place] [address]Dr. Shahbaz Rogel RBC 67 cubic mm Normal [facility] Comment on above: Performed By: #### B FCC ####[facility] Qmtzkfdrkx[address] [place] [address]Dr. Shahbaz Rogel SEGS 80 % Normal [facility] Comment on above: Performed By: #### B FCC ####[facility] Hoeqytldnc[address] [place], [place] [address]Dr. Shahbaz Rogel WBC BODY FLUID 223 cubic mm Normal [facility] Comment on above: Performed By: #### B FCC ####[facility] Nxftqyxsge[address] [place], [place] [address]Dr. Shahbaz Rogel CULTURE OTHERon 07-04-2022 CULTURE OTHER Culture Observations : NO GROWTH AT 48 HOURS. Normal [facility] Comment on above: Performed By: #### O THCX ####[facility] Jfkmqkybcg[address] [place], [place] [address]Dr. Shahbaz Rogel CYTOLOGYon 07-04-2022 SENT TO REF LAB 07/04/22 Normal [facility] Comment on above: Performed By: #### C YTO ####[facility] Iisvkyuzdf[address] [place], [place] [address]Dr. Shahbaz Rogel Covid-19 PCR (CVDTB)on SARS-CoV-2 (COVID-19) RNA PAVAN+probe Ql (Unsp spec) Not detected Normal NOT DETECTED [facility] Comment on above: Result Comment: When [...] for this test is supported by the [place] of Health and Human Service's declaration that [...] be used). Performed By: #### C VDTBH ####[facility] Rjowfqjmvy[address] [place], [place] [address]Dr. Shahbaz Juan F GRAM STAINon 07-04-2022 COMMENTS NO ORGANISMS OBSERVED Normal [facility] Comment on above: Performed By: #### G STAIN ####[facility] Aarizspxec[address] [place], [place] [address]Dr. Lilajarrod Juan F DIPHTHEROIDS Normal [facility] Comment on above: Performed By: #### G STAIN ####[facility] Fvtxefloss[address] [place], [place] [address]Dr. Lilajarrod Rogel EPITHELIALS Normal [facility] Comment on above: Performed By: #### G STAIN ####[facility] Wixwubalyk[address] [place], [place] [address]Dr. Lilajarrod Rogel FUNGAL ELEMENTS Normal [facility] Comment on above: Performed By: #### G STAIN ####[facility] Nqtgilyxrt[address] [place], [place] [address]Dr. Shahbaz Rogel GRAM NEG BACILLI Normal [facility] Comment on above: Performed By: #### G STAIN ####[facility] [address]wbeerj[address] [place] [address]Dr. Shahbaz Rogel GRAM NEG DIPPLOCOCCI Normal [facility] Comment on above: Performed By: #### G STAIN ####[facility] Ktq[address]qer[address] [place] [address]Dr. Shahbaz Rogel GRAM POS BACILLI Normal [facility] Comment on above: Performed By: #### G STAIN ####[facility] Odnrpbttim[address] [place] [address]Dr. Shahbaz Rogel GRAM POSITIVE COCCI Normal [facility] Comment on above: Performed By: #### G STAIN ####[facility] Oftxaqkpjv[address] [place] [address]Dr. Shahbaz Rogel GRAM STAIN SOURCE Rt Lower Lobe Bronch ial Washing Normal [facility] Comment on above: Performed By: #### G STAIN ####[facility] Uozwphjkbe[address] [place] [address]Dr. Shahbaz Rogel GS_DIPTH Normal [facility] Comment on above: Performed By: #### G STAIN ####[facility] Rhsddlrfkm[address] [place], [place] [address]Dr. Shahbaz Rogel WBC RARE Normal [facility] Comment on above: Performed By: #### G STAIN ####[facility] Dcokxfbxks6[address] [place], [place] [address]Dr. Shahbaz Rogel PROF 14(COMP METB)on 022 Albumin [Mass/Vol] 3.6 g/dL Normal 3.4-5.0 [facility] Comment on above: Performed By: #### C JACKSON CMADM ####[facility] Njjwxlmlsh69[address] [place], [place] [address]Dr. Shahbaz Rogel Albumin/Globulin [Mass ratio] 1.1 {ratio} Normal [facility] Comment on above: Performed By: #### C JACKSON, CMADM ####[facility] Cnwbovnurs[address] [place], [place] [address]Dr. Shahbaz Rogel ALP [Catalytic activity/Vol] 102 U/L Normal 46-116 [facility] Comment on above: Performed By: #### C JACKSON, CMADM ####[facility] L[address]xerbbav[address] [place] [address]Dr. Shahbaz Rogel ALT [Catalytic activity/Vol] 19 U/L Normal 14-59 [facility] Comment on above: Performed By: #### C JACKSON, CMADM ####[facility] D[address]zkfcclh[address] [place] [address]Dr. Shahabz Rogel Anion gap [Moles/Vol] 9.5 mmol/L Normal [facility] Comment on above: Performed By: #### C JACKSON, CMADM ####[facility] Ftbplagnrs[address] [place] [address]Dr. Shahbaz Rogel AST [Catalytic activity/Vol] 19 U/L Normal 15-37 [facility] Comment on above: Performed By: #### C JACKSON, CMADM ####[facility] Ppdbwcuvbp[address] [place] [address]Dr. Shahbaz Rogel Bilirubin [Mass/Vol] 0.3 mg/dL Normal 0.2-1.0 [facility] Comment on above: Performed By: #### C JACKSON, CMADM ####[facility] Igwsdeflvt[address] [place] [address]Dr. Shahbaz Rogel Calcium [Mass/Vol] 8.8 mg/dL Normal 8.5-10.1 [facility] Comment on above: Performed By: #### C JACKSON, CMADM ####[facility] Uwwffymjhy[address] [place], [place] [address]Dr. Shahbaz Rogel Chloride [Moles/Vol] 107 mmol/L Normal 98-107 [facility] Comment on above: Performed By: #### C JACKSON, CMADM ####[facility] Jvavytqpvv10[address] [place], [place] [address]Dr. Shahbaz Rogel CO2 [Moles/Vol] 29.5 mmol/L Normal 21.0-32.0 [facility] Comment on above: Performed By: #### C JACKSON, CMADM ####[facility] Ktbkatmkdo6[address] [place], [place] [address]Dr. Shahbaz Rogel Creatinine [Mass/Vol] 0.97 mg/dL Normal 0.55-1.02 [facility] Comment on above: Performed By: #### C JACKSON, CMADM ####[facility] Vvtknhngcx9[address] [place], [place] [address]Dr. Shahbaz Rogel EGFR-AF PORTUGUESE >60 Normal >=60 [facility] Comment on above: Performed By: #### C JACKSON, CMADM ####[facility] Hymwzlzrtj[address] [place], [place] [address]Dr. Shahbaz Rogel EGFR-NON AF PORTUGUESE 59 mL/min/1.73m2 Critically low >=60 [facility] Comment on above: Performed By: #### C JACKSON, CMAROXANNA ####[facility] [address]loiwp[address] [place] [address]Dr. Shahbaz Rogel Globulin (S) [Mass/Vol] 3.2 g/dL Normal [facility] Comment on above: Performed By: #### C JACKSON, CMADM ####[facility] Kwnqyyvina[address] [place] [address]Dr. Shahbaz Rogel Glucose [Mass/Vol] 89 mg/dL Normal 74-106 [facility] Comment on above: Performed By: #### C JACKSON, CMAROXANNA ####[facility] Gzheeeioiy[address] [place], [place] [address]Dr. Shahbaz Rogel Potassium [Moles/Vol] 4.0 mmol/L Normal 3.5-5.1 [facility] Comment on above: Performed By: #### C JACKSON, CMAROXANNA ####[facility] Iconncvlsm[address] [place], [place] [address]Dr. Shahbaz Rogel Protein [Mass/Vol] 6.8 g/dL Normal 6.4-8.2 [facility] Comment on above: Performed By: #### C JACKSON, CINDY ####[facility] Khudzyshrx[address] [place], [place] [address]Dr. Shahbaz Rogel Sodium [Moles/Vol] 142 mmol/L Normal 136-145 [facility] Comment on above: Performed By: #### C JACKSON, CMADM ####[facility] Idehohitqx[address] [place], [place] [address]Dr. Shahbaz Rogel Urea nitrogen [Mass/Vol] 11.0 mg/dL Normal 7.0-18.0 [facility] Comment on above: Performed By: #### C CINDY PAZ ####[facility] Srmipxkgbm04[address] [place], [place] [address]Dr. Shahbaz Rogel Urea nitrogen/Creatinine [Mass ratio] 11.3 mg/mg Normal [facility] Comment on above: Performed By: #### C JACKSON CMADM ####[facility] Loxmechtgo[address] [place], [place] [address]Dr. Shahbaz Rogel T4on 07-04-2022 T4 [Mass/Vol] 4.70 ug/dL Critically low 4.80-13.90 [facility] Comment on above: Performed By: #### T SH, T4 ####[facility] Y[address] [place] [address]Dr. Shahbaz Rogel TSHon 07-04-2022 TSH 0.359 uIU/mL Normal 0.358-3.74 0 [facility] Comment on above: Performed By: #### T SH, T4 ####[facility] Xr[address] [place] [address]Dr. Shahbaz Rogel XR CHEST 1 Von 07-04-2022 XR CHEST 1 V Normal [facility] XR CHEST 1 V Normal [facility] CHLAMYDIA PNEUMONIAE IgG IgM IgAon 06-27-2022 Chlamydia pneumoniae IgA <1:16 Normal Neg:<1:16 [facility] Comment on above: Performed By: #### C HLMPNE ####[facility] Nrussrwnmv[address] [place], [place] [address]Dr. [facility] Chlamydia pneumoniae IgG <1:16 Normal Neg:<1:16 [facility] Comment on above: Performed By: #### C HLMPNE ####[facility] Vufcycrhkb[address] [place], [place] [address]Dr. jarrod [facility] Chlamydia pneumoniae IgM <1:10 Normal Neg:<1:10 [facility] Comment on above: Performed By: #### C HLMPNE ####[facility] Rsv[address]blqtc[address] [place] [address]Dr. Shahbaz Rogel Test Information: Comment Normal [facility] Comment on above: Result Comment: [...] or procedure. Performed By: #### C HLMPNE ####[facility] Cajbmfzjxd[address] [place], [place] [address]Dr. Shahbaz Rogel Covid-19 PCR (CVDTB)on 06-03 SARS-CoV-2 (COVID-19) RNA PAVAN+probe Ql (Unsp spec) Not detected Normal NOT DETECTED [facility] Comment on above: Result Comment: This test is not yet approved or cleared by the [place] FDA. When there are no FDA-approved or cleared tests available, and other criteria are met, FDA can make tests available under an emergency access mechanism called an Emergency Use Authorization (EUA). The EUA for this test is supported by the [place] of Health and Human Service's (HHS's) declaration [...] with SARS-CoV-2. Performed By: #### C VDTBH ####[facility] Shwcmfxglb[address] [place], [place] [address]Dr. Shahbaz Rogel CYCLIC CITRULLINATED PEPTIDE AB (CCP)on 06-25-2022 CCP Antibodies IgG/IgA 13 units Normal 0-[address] [facility] Comment on above: Result Comment: Nega tive <20 Weak positive 20 - 39 Moderate positive 40 - 59 Strong positive >59 Performed By: #### C CPAB ####[facility] Cctxsycqza[address] [place], [place] [address]Dr. Shahbaz Rogel ANTI NEUTROPHIL CYTOPLASMIC AB (ANCA) PRon 06-24-2022 Anti-MPO Antibodies <0.2 Normal 0.0-0.9 [facility] Comment on above: Result Comment: Perf ormed at: BN Performed By: #### A NCAP ####[facility] Anwodmzpts[address] [place], [place] [address]Dr. Shahbaz Rogel Anti-PR3 Antibodies 5.0 units Critically high 0.0-0.9 [facility] Comment on above: Result Comment: Perf ormed at: BN Performed By: #### A NCAP ####[facility] [address] [place] [address]Dr. Shahbaz Rogel Atypical pANCA <1:20 Normal Neg:<1:20 [facility] Comment on above: Result Comment: The atypical pANCA pattern has been observed in a significantpercentage of patients with ulcerative colitis, primary sclerosingcholangitis and autoimmune hepatitis.Performed at: CB Performed By: #### A NCAP ####[facility] [address]mtatkv[address] [place] [address]Dr. Shahbaz Rogel Cytoplasmic (C-ANCA) <1:20 Normal Neg:<1:20 [facility] Comment on above: Result Comment: Perf ormed at: CB Performed By: #### A NCAP ####[facility] [address] [place] [address]Dr. Shahbaz Rogel Perinuclear (P-ANCA) 1:80 Critically high Neg:<1:20 [facility] Comment on above: Result Comment: The presence of positive fluorescence exhibiting P-ANCA or C-ANCApatterns alone is not specific for the diagnosis of Ada'sGranulomatosis (WG) or microscopic polyangiitis. Decisions abouttreatment should not be based solely on ANCA IFA results. TheInternational ANCA Group Consensus recommends follow up testing ofpositive sera with both IL-3 and MPO-ANCA enzyme immunoassays. Asmany as 5% serum samples are positive only by EIA.Ref. AM J Clin Pathol 1999;111:507-513.Performed at: CB Performed By: #### A NCAP ####[facility] [address] [place] [address]Dr. Shahbaz Rogel ANTIGLOMERULAR BASEMENT MEMB ANTOINE ABSon 06-24-2022 Anti-GBM Antibodies <0.2 Normal 0.0-0.9 [facility] Comment on above: Performed By: #### A GBM ####[facility] L[address]tegqrm[address] [place] [id number]. Shahbaz Rogel SHAHANA EIA W/REFLEX 5 BIOMARKER Son 06-23-2022 SHAHANA Direct Negative Normal Negative [facility] Comment on above: Performed By: #### A NARF ####[facility] Aisftouomf[address] [place], [place] [address]Dr. Shahbaz Rogel ANTISCLERODERMA ABon 022 Antiscleroderma-70 Antibodies <0.2 Normal 0.0-0.9 [facility] Comment on above: Performed By: #### A NSCLER ####[facility] Rylfqnkwuy[address] [place], [place] [address]Dr. Shahbaz Rogel RHEUMATOID FACTORon 06-23-20 RA Latex Turbid. <10.0 Normal <14.0 [facility] Comment on above: Performed By: #### R F ####[facility] Ogmdntchjc[address] [place], [place] [address]Dr. Shahbaz Rogel CBC AUTO DIFFon 06-22-2022 BASO # 0.0 103/ul Normal 0.0-0.1 [facility] Comment on above: Performed By: #### C BC ####[facility] Mywekmhnlr[address] [place], [place] [address]Dr. Lilajarrod Rogel Basophils/100 WBC (Bld) 0.5 % Normal 0.2-2.0 [facility] Comment on above: Performed By: #### C BC ####[facility] Vcnjcsfynm[address] [place], [place] [address]Dr. Shahbaz Rogel EO # 0.1 103/ul Normal 0.0-0.7 [facility] Comment on above: Performed By: #### C BC ####[facility] Fnfirukbnj[address] [place], [place] [address]Dr. Lilajarrod Rogel Eosinophils/100 WBC (Bld) 3.4 % Normal 0.9-7.0 [facility] Comment on above: Performed By: #### C BC ####[facility] Rwzvzozqtu9[address] [place], [place] [address]Dr. Shahbaz Rogel Erythrocyte distribution width (RBC) [Ratio] 13.2 % Normal 11.0-15.0 [facility] Comment on above: Performed By: #### C BC ####[facility] [address]auqpsr[address] [place] [address]Dr. Shahbaz Rogel Hematocrit (Bld) [Volume fraction] 45.6 % Normal 36.0-48.0 [facility] Comment on above: Performed By: #### C BC ####[facility] Fefyzqfmtv[address] [place] [address]Dr. Shahbaz Rogel Hemoglobin (Bld) [Mass/Vol] 14.7 g/dL Normal 12.0-16.0 [facility] Comment on above: Performed By: #### C BC ####[facility] Sqfqcqrryk[address] [place] [address]Dr. Shahbaz Rogel IG # 0.01 10e3/ul Normal 0.00-0.03 [facility] Comment on above: Performed By: #### C BC ####[facility] Uaeojdgwij03[address] [place], [place] [address]Dr. Shahbaz Rogel IG % 0.3 % Normal 0.0-0.5 [facility] Comment on above: Performed By: #### C BC ####[facility] Nwuzofsecd[address] [place] [address]Dr. Shahbaz Rogel LYMPH # 1.0 103/ul Critically low 1.2-3.8 [facility] Comment on above: Performed By: #### C BC ####[facility] Fwjgwimgzb[address] [place] [address]Dr. Shahbaz Rogel Lymphocytes/100 WBC (Bld) 25.7 % Normal 20.5-60.0 [facility] Comment on above: Performed By: #### C BC ####[facility] Mvjbcfmuai[address] [place] [address]DrChen Rogel MANUAL DIFF REQ NO Normal [facility] Comment on above: Performed By: #### C BC ####[facility] Hvcxlhdomv[address] [place], [place] [address]DrChen Rogel MCH (RBC) [Entitic mass] 28.1 pg Normal 26.7-34.0 [facility] Comment on above: Performed By: #### C BC ####[facility] Bbjitwhjbn47[address] [place], [place] [address]Dr. Shahbaz Juan F MCHC (RBC) [Mass/Vol] 32.2 g/dL Normal 29.9-35.2 [facility] Comment on above: Performed By: #### C BC ####[facility] Vsckjgxvyf[address] [place] [address]Dr. Shahbaz Juan F MCV (RBC) [Entitic vol] 87.2 fL Normal 81.0-99.0 [facility] Comment on above: Performed By: #### C BC ####[facility] Cvhjobixoz[address] [place] [address]Dr. Shahbaz Juan F MONO # 0.2 103/ul Critically low 0.3-0.8 [facility] Comment on above: Performed By: #### C BC ####[facility] Xzktpatjru[address] [place] [address]Dr. Shahbaz Rogel Monocytes/100 WBC (Bld) 6.0 % Normal 1.7-12.0 [facility] Comment on above: Performed By: #### C BC ####[facility] Oerloarkzx[address] [place], [place] [address]Dr. Shahbaz Juan F NEUT # 2.5 103/ul Normal 1.4-6.5 [facility] Comment on above: Performed By: #### C BC ####[facility] Nfdmlaxzsk[address] [place] [address]Dr. Shahbaz Juan F Neutrophils/100 WBC (Bld) 64.1 % Normal 43.0-75.0 [facility] Comment on above: Performed By: #### C BC ####[facility] Vluzfzqegi[address] [place] [address]Dr. Shahbaz Juan F Platelet mean volume (Bld) [Entitic vol] 9.4 fL Critically low 9.5-13.5 [facility] Comment on above: Performed By: #### C BC ####[facility] Sm[address]xxzmajf[address] [place] [address]Dr. Shahbaz Rogel PLT 212 103/ul Normal 150-450 [facility] Comment on above: Performed By: #### C BC ####[facility] Ofanozvlzg[address] [place] [address]Dr. Lilajarrod Juan F RBC 5.23 106/ul Normal 4.20-5.40 [facility] Comment on above: Performed By: #### C BC ####[facility] K[address]wmxiobr[address] [place] [address]Dr. Shahbaz Rogel WBC 3.9 103/ul Critically low 4.0-11.0 [facility] Comment on above: Performed By: #### C BC ####[facility] Sfhxcxjcaw[address] [place] [address]Dr. Shahbaz Rogel PROF 14(COMP METB)on 022 Albumin [Mass/Vol] 4.1 g/dL Normal 3.4-5.0 [facility] Comment on above: Performed By: #### C MP ####[facility] Wcsxxscdrq[address] [place], [place] [address]Dr. Shahbaz Rogel Albumin/Globulin [Mass ratio] 1.1 {ratio} Normal [facility] Comment on above: Performed By: #### C MP ####[facility] Iyjcimbpnk66[address] [place], [place] [address]Dr. Shahbaz Rogel ALP [Catalytic activity/Vol] 133 U/L Critically high 46-116 [facility] Comment on above: Performed By: #### C MP ####[facility] Cvqwpozpqv[address] [place], [place] [address]Dr. Shahbaz Rogel ALT [Catalytic activity/Vol] 29 U/L Normal 14-59 [facility] Comment on above: Performed By: #### C MP ####[facility] Uomzuclync[address] [place], [place] [address]Dr. Shahbaz Rogel Anion gap [Moles/Vol] 10.9 mmol/L Normal [facility] Comment on above: Performed By: #### C MP ####[facility] Yjtfpbiwrt[address] [place], [place] [address]Dr. Shahbaz Rogel AST [Catalytic activity/Vol] 23 U/L Normal 15-37 [facility] Comment on above: Performed By: #### C MP ####[facility] Xplyrwqspd5032[address] [place], [place] [address]Dr. Shahbaz Rogel Bilirubin [Mass/Vol] 0.3 mg/dL Normal 0.2-1.0 [facility] Comment on above: Performed By: #### C MP ####[facility] Etduitgapn[address] [place], [place] [address]Dr. Shahbaz Rogel Calcium [Mass/Vol] 9.1 mg/dL Normal 8.5-10.1 [facility] Comment on above: Performed By: #### C MP ####[facility] Gasmcagqjy0[address] [place], [place] [address]Dr. Shahbaz Juan F Chloride [Moles/Vol] 103 mmol/L Normal 98-107 [facility] Comment on above: Performed By: #### C MP ####[facility] Zaeayvqhnp3[address] [place], [place] [address]Dr. Shahbaz Juan F CO2 [Moles/Vol] 30.8 mmol/L Normal 21.0-32.0 [facility] Comment on above: Performed By: #### C MP ####[facility] Srcwyvrbmi[address] [place], [place] [address]Dr. Shahbaz Juan F Creatinine [Mass/Vol] 1.02 mg/dL Normal 0.55-1.02 [facility] Comment on above: Performed By: #### C MP ####[facility] Ssomvsunhl44[address] [place], [place] [address]Dr. Lilajarrod Juan F EGFR-AF PORTUGUESE >60 Normal >=60 [facility] Comment on above: Performed By: #### C MP ####[facility] Oxpoqbfvsi9993[address] [place], [place] [address]Dr. Lilajarrod Juan F EGFR-NON AF PORTUGUESE 56 mL/min/1.73m2 Critically low >=60 [facility] Comment on above: Performed By: #### C MP ####[facility] Uhjentbatw[address] [place], [place] [address]Dr. Shahbaz Rogel Globulin (S) [Mass/Vol] 3.7 g/dL Normal [facility] Comment on above: Performed By: #### C MP ####[facility] Gtmypobiid[address]42[address] [place], [place] [address]Dr. Shahbaz Rogel Glucose [Mass/Vol] 80 mg/dL Normal 74-106 [facility] Comment on above: Performed By: #### C MP ####[facility] Z[address]yjzapxu[address] [place] [address]Dr. Shahbaz Juan F Potassium [Moles/Vol] 3.7 mmol/L Normal 3.5-5.1 [facility] Comment on above: Performed By: #### C MP ####[facility] Hzchtrjhqx232[address] [place] [address]Dr. Lilajarrod Juan F Protein [Mass/Vol] 7.8 g/dL Normal 6.4-8.2 [facility] Comment on above: Performed By: #### C MP ####[facility] Owushrfhqn[address] [place], [place] [address]Dr. Lilajarrod Juan F Sodium [Moles/Vol] 141 mmol/L Normal 136-145 [facility] Comment on above: Performed By: #### C MP ####[facility] Aliirvwrxb24[address] [place], [place] [address]Dr. Lilajarrod Juan F Urea nitrogen [Mass/Vol] 10.0 mg/dL Normal 7.0-18.0 [facility] Comment on above: Performed By: #### C MP ####[facility] Lwnqvisuge[address] [place], [place] [address]Dr. Lilajarrod Juan F Urea nitrogen/Creatinine [Mass ratio] 9.8 mg/mg Normal [facility] Comment on above: Performed By: #### C MP ####[facility] Wmhdulqbnq[address] [place], [place] [address]Dr. Shahbaz Rogel SED RATE NORTH SUTTONERGRENon 2021 SED RATE 17 mm/hr Normal <=30 [facility] Comment on above: Performed By: #### S EDR ####[facility] Ivfanuqmmd[address] [place], [place] [address]Dr. Shahbaz Rogel CT CHEST HI RESOLUTIONon CT CHEST HI RESOLUTION Normal Th [facility] XR ANKLE RT MIN 3 VIEWSon XR ANKLE RT MIN 3 VIEWS Normal [facility] CT CHEST WO CONon 03-03-2022 CT CHEST WO CON Normal [facility] CT CSPINE WO CONon 2 CT CSPINE WO CON Normal [facility] XR CHEST 2 Von 03-03-2022 XR CHEST 2 V Normal [facility] XR STERNUM MIN 2 VIEWSon XR STERNUM MIN 2 VIEWS Normal Th [facility] CT HEAD WO CONon 03-02-2022 CT HEAD WO CON Normal [facility] CBC AUTO DIFFon 01-21-2022 BASO # 0.0 103/ul Normal 0.0-0.1 [facility] Comment on above: Performed By: #### C BC ####[facility] [address]kb[address]fmncz[address] [place] [address]Dr. Shahbaz Rogel Basophils/100 WBC (Bld) 0.0 % Critically low 0.2-2.0 [facility] Comment on above: Performed By: #### C BC ####[facility] Fyuztfooqk[address] [place], [place] [address]Dr. Shahbaz Rogel EO # 0.0 103/ul Normal 0.0-0.7 [facility] Comment on above: Performed By: #### C BC ####[facility] Qqespsepny44[address] [place] [address]Dr. Shahbaz Rogel Eosinophils/100 WBC (Bld) 0.0 % Critically low 0.9-7.0 [facility] Comment on above: Performed By: #### C BC ####[facility] Jphlflntsu[address] [place], [place] [address]Dr. Shahbaz Rogel Erythrocyte distribution width (RBC) [Ratio] 14.2 % Normal 11.0-15.0 [facility] Comment on above: Performed By: #### C BC ####[facility] Zswnqjmdeu[address] [place], [place] [address]DrChen Rogel Hematocrit (Bld) [Volume fraction] 38.9 % Normal 36.0-48.0 [facility] Comment on above: Performed By: #### C BC ####[facility] Mrpppjbgrn2[address] [place], [place] [address]DrChen Rogel Hemoglobin (Bld) [Mass/Vol] 11.8 g/dL Critically low 12.0-16.0 [facility] Comment on above: Performed By: #### C BC ####[facility] Ddscxyyrkw[address] [place] [address]Dr. Shahbaz Rogel IG # 0.03 10e3/ul Normal 0.00-0.03 [facility] Comment on above: Performed By: #### C BC ####[facility] Bwyogvuhdp[address] [place] [address]Dr. Shahbaz Rogel IG % 0.4 % Normal 0.0-0.5 [facility] Comment on above: Performed By: #### C BC ####[facility] Axdzyvlfjs[address] [place], [place] [address]DrChen Rogel LYMPH # 0.8 103/ul Critically low 1.2-3.8 [facility] Comment on above: Performed By: #### C BC ####[facility] Yylkqrihmn94[address] [place], [place] [address]Dr. Shahbaz Rogel Lymphocytes/100 WBC (Bld) 10.3 % Critically low 20.5-60.0 [facility] Comment on above: Performed By: #### C BC ####[facility] Worrtzuhca43[address] [place], [place] [address]DrChen Rogel MANUAL DIFF REQ NO Normal [facility] Comment on above: Performed By: #### C BC ####[facility] Rvykwldelb3364[address] [place], [place] [address]Dr. Shahbaz Rogel MCH (RBC) [Entitic mass] 27.1 pg Normal 26.7-34.0 [facility] Comment on above: Performed By: #### C BC ####[facility] Dprfuabiha7413[address] [place], [place] [address]Dr. Lilajarrod Rogel MCHC (RBC) [Mass/Vol] 30.3 g/dL Normal 29.9-35.2 [facility] Comment on above: Performed By: #### C BC ####[facility] A[address]ptodfq[address] [place] [address]Dr. Shahbaz Rogel MCV (RBC) [Entitic vol] 89.2 fL Normal 81.0-99.0 [facility] Comment on above: Performed By: #### C BC ####[facility] Vokoesxulw3[address] [place] [address]Dr. Shahbaz Rogel MONO # 0.4 103/ul Normal 0.3-0.8 [facility] Comment on above: Performed By: #### C BC ####[facility] Cmnpgjgmcq28[address] [place] [id number]. Shahbaz Rogel Monocytes/100 WBC (Bld) 4.7 % Normal 1.7-12.0 [facility] Comment on above: Performed By: #### C BC ####[facility] Hdtejyyzwr[address] [place] [address]Dr. Shahbaz Rogel NEUT # 6.6 103/ul Critically high 1.4-6.5 [facility] Comment on above: Performed By: #### C BC ####[facility] Ezedetqlxt5399[address] [place], [place] [address]Dr. Shahbaz Rogel Neutrophils/100 WBC (Bld) 84.6 % Critically high 43.0-75.0 [facility] Comment on above: Performed By: #### C BC ####[facility] Dbilnrsnft9624[address] [place], [place] [address]Dr. Shahbaz Rogel Platelet mean volume (Bld) [Entitic vol] 10.0 fL Normal 9.5-13.5 [facility] Comment on above: Performed By: #### C BC ####[facility] Vvioxtundk04[address] [place] [address]Dr. Shahbaz Rogel PLT 165 103/ul Normal 150-450 [facility] Comment on above: Performed By: #### C BC ####[facility] Wdsvlbgbb[address] [place], [place] [id number]. Shahbaz Rogel RBC 4.36 106/ul Normal 4.20-5.40 [facility] Comment on above: Performed By: #### C BC ####[facility] Waoydtnazf80[address] [place] [address]Dr. Shahbaz Rogel WBC 7.8 103/ul Normal 4.0-11.0 [facility] Comment on above: Performed By: #### C BC ####[facility] Bivqzfbqtb[address] [place], [place] [address]Dr. Shahbaz Rogel ER URINE PROFILEon 2 Bilirubin Ql (U) Negative Normal NEGATIVE [facility] Comment on above: Performed By: #### E RUR ####[facility] Vkomcosvzx8204[address] [place], [place] [address]Dr. Shahbaz Rogel Clarity (U) CLEAR Normal CLEAR [facility] Comment on above: Performed By: #### E RUR ####[facility] Wcfhdrahir1167[address] [place], [place] [address]Dr. Shahbaz Rogel Color (U) LT. YELLOW Normal YELLOW [facility] Comment on above: Performed By: #### E RUR ####[facility] Rrartqhtee3493[address] [place], [place] [address]Dr. Shahbaz Rogel ERUAHD A micrscopic examina tion will be performed if indicated. Normal [facility] Comment on above: Performed By: #### E RUR ####[facility] Mgtgxfrsfd299[address] [place], [place] [address]Dr. Shahbaz Rogel Glucose Ql (U) Negative Normal NEGATIVE [facility] Comment on above: Performed By: #### E RUR ####[facility] Qsohsmeaps5296[address] [place], [place] [address]Dr. Yilan Rogel Hemoglobin Ql (U) Negative Normal NEGATIVE [facility] Comment on above: Performed By: #### E RUR ####[facility] Bwwdekrdyl5[address] [place], [place] [address]Dr. Yilan Rogel Ketones Ql (U) Negative Normal NEGATIVE [facility] Comment on above: Performed By: #### E RUR ####[facility] Fqidlqeztj4[address] [place], [place] [address]Dr. Yilan Rogel LEUKOCYTES Negative Normal NEGATIVE [facility] Comment on above: Performed By: #### E RUR ####[facility] Ffhixhoduv9[address] [place], [place] [address]Dr. Yilan Rogel Nitrite Ql (U) Negative Normal NEGATIVE [facility] Comment on above: Performed By: #### E RUR ####[facility] [address]eqenpmaz[address] [place] [phone]. Shahbaz Rogel pH (U) 6.0 [pH] Normal 5-9 [facility] Comment on above: Performed By: #### E RUR ####[facility] Dyxrveoleu37[address] [place] [address]Dr. Lilajarrod Rogel SPEC GRAVITY 1.020 Normal 1.005-<=1. 025 [facility] Comment on above: Performed By: #### E RUR ####[facility] Sbjwmwwgmh[address] [place] [address]Dr. Shahbaz Rogel UA PROTEIN Negative Normal NEGATIVE/ TRACE [facility] Comment on above: Performed By: #### E RUR ####[facility] Mvvrhejioa[address] [place] [address]Dr. Shahbaz Rogel UR MICRO IND NOT INDICATED Normal [facility] Comment on above: Performed By: #### E RUR ####[facility] Hnggvkwdfe100[address] [place] [address]Dr. Shahbaz Rogel Urobilinogen Qn (U) 0.2 {Melida'U}/dL Normal 0.2 - 1. 0 [facility] Comment on above: Performed By: #### E RUR ####[facility] Eqnejvgmyu3[address] [place] [address]Dr. Shahbaz Juan F POINT OF CARE GLUCOSEon 01-01 Glucose [Mass/Vol] 151 mg/dL Critically high 74-106 [facility] Comment on above: Performed By: #### P OCGLUC ####[facility] Ieonhzkidk[address] [place] [address]Dr. Shahbaz Rogel Glucose [Mass/Vol] 248 mg/dL Critically high 74-106 [facility] Comment on above: Performed By: #### P OCGLUC ####[facility] Newnelzvmh[address] [place] [address]Dr. Shahbaz Rogel PROF 14(COMP METB)on 022 Albumin [Mass/Vol] 2.8 g/dL Critically low 3.4-5.0 [facility] Comment on above: Performed By: #### C MP ####[facility] Ytmihryqyv[address] [place] [phone]. Shahbaz Rogel Albumin/Globulin [Mass ratio] 0.9 {ratio} Normal [facility] Comment on above: Performed By: #### C MP ####[facility] Mrtbcqdatm6064 [place] [phone]. Shahbaz Rogel ALP [Catalytic activity/Vol] 90 U/L Normal 46-116 [facility] Comment on above: Performed By: #### C MP ####[facility] Fogyqzyidc[address] [place] [address]Dr. Shahbaz Rogel ALT [Catalytic activity/Vol] 20 U/L Normal 14-59 [facility] Comment on above: Performed By: #### C MP ####[facility] Abknjrpuag[address] [place] [address]Dr. Shahbaz Rogel Anion gap [Moles/Vol] 8.9 mmol/L Normal [facility] Comment on above: Performed By: #### C MP ####[facility] Bzhktuevca[address] [place], [place] [address]Dr. Shahbaz Rogel AST [Catalytic activity/Vol] 14 U/L Critically low 15-37 [facility] Comment on above: Performed By: #### C MP ####[facility] Vguebosvei4266[address] [place], [place] [address]Dr. Shahbaz Rogel Bilirubin [Mass/Vol] 0.1 mg/dL Critically low 0.2-1.3 [facility] Comment on above: Performed By: #### C MP ####[facility] Odeduvgbik69[address] [place], [place] [address]Dr. Shahbaz Rogel Calcium [Mass/Vol] 8.2 mg/dL Critically low 8.5-10.[address] [facility] Comment on above: Performed By: #### C MP ####[facility] Nxuxobtcpq8265[address] [place], [place] [address]Dr. Shahbaz Rogel Chloride [Moles/Vol] 110 mmol/L Critically high 98-107 [facility] Comment on above: Performed By: #### C MP ####[facility] Ytksdqkgbj6[address] [place] [address]Dr. Shahbaz Rogel CO2 [Moles/Vol] 28.0 mmol/L Normal 22.0-30.0 [facility] Comment on above: Performed By: #### C MP ####[facility] Gpxctcntdo[address] [place] [address]Dr. Shahbaz Rogel Creatinine [Mass/Vol] 0.78 mg/dL Normal 0.52-1.04 [facility] Comment on above: Performed By: #### C MP ####[facility] Honwlnizru27[address] [place] [address]Dr. Shahbaz Rogel EGFR-AF PORTUGUESE >60 Normal >=60 [facility] Comment on above: Performed By: #### C MP ####[facility] Lielfqimll[address] [place], [place] [address]Dr. Shahbaz Rogel EGFR-NON AF PORTUGUESE >60 Normal >=60 [facility] Comment on above: Performed By: #### C MP ####[facility] Ufoymwuehr1739[address] [place], [place] [address]Dr. Shahbaz Rogel Globulin (S) [Mass/Vol] 3.1 g/dL Normal [facility] Comment on above: Performed By: #### C MP ####[facility] Ychoafirvq4811[address] [place], [place] [address]Dr. Shahbaz Rogel Glucose [Mass/Vol] 121 mg/dL Critically high 74-106 [facility] Comment on above: Performed By: #### C MP ####[facility] Itdqotamws5657[address] [place], [place] [address]Dr. Shahbaz Rogel Potassium [Moles/Vol] 3.9 mmol/L Normal 3.4-5.0 [facility] Comment on above: Performed By: #### C MP ####[facility] Bapdshnvlu3330[address] [place], [place] [address]Dr. Shahbaz Rogel Protein [Mass/Vol] 5.9 g/dL Critically low 6.1-8.[address] [facility] Comment on above: Performed By: #### C MP ####[facility] Knldizejaa280[address] [place] [address]Dr. Shahbaz Rogel Sodium [Moles/Vol] 143 mmol/L Normal 137-145 [facility] Comment on above: Performed By: #### C MP ####[facility] Lnrucrvbfr225[address] [place], [place] [address]Dr. Shahbaz Rogel Urea nitrogen [Mass/Vol] 26.0 mg/dL Critically high 7.0-18.0 [facility] Comment on above: Performed By: #### C MP ####[facility] Rfozgbibcn01[address] [place], [place] [address]Dr. Shahbaz Rogel Urea nitrogen/Creatinine [Mass ratio] 33.3 mg/mg Normal [facility] Comment on above: Performed By: #### C MP ####[facility] Cridqtawzt2768[address] [place], [place] [address]Dr. Shahbaz Rogel JKZUB-1-UHKCTUAERUNbc 2021 Zboqd-1-Cwqxegqgbrb, Serum 154 mg/dL Normal 101-187 [facility] Comment on above: Performed By: #### A LPHA-1 ####[facility] Zjhgfrvnzq[address] [place], [place] [address]Dr. Shahbaz Rogel CBC AUTO DIFFon 01-20-2022 BASO # 0.0 103/ul Normal 0.0-0.1 [facility] Comment on above: Performed By: #### C BC ####[facility] Dqugnpojzo9550[address] [place], [place] [address]Dr. Shahbaz Juan F Basophils/100 WBC (Bld) 0.0 % Critically low 0.2-2.0 [facility] Comment on above: Performed By: #### C BC ####[facility] Qibhoirqrk9780[address] [place], [place] [address]Dr. Shahbaz Juan F EO # 0.0 103/ul Normal 0.0-0.7 [facility] Comment on above: Performed By: #### C BC ####[facility] Popvibhkwa9137[address] [place], [place] [address]Dr. Shahbaz Juan F Eosinophils/100 WBC (Bld) 0.0 % Critically low 0.9-7.0 [facility] Comment on above: Performed By: #### C BC ####[facility] H[address]oyweyf[address] [place] [address]Dr. Shahbaz Rogel Erythrocyte distribution width (RBC) [Ratio] 13.7 % Normal 11.0-15.0 [facility] Comment on above: Performed By: #### C BC ####[facility] Rrjadlxpbp8562[address] [place], [place] [address]Dr. Shahbaz Rogel Hematocrit (Bld) [Volume fraction] 41.2 % Normal 36.0-48.0 [facility] Comment on above: Performed By: #### C BC ####[facility] Wuybebpvis260[address] [place], [place] [address]Dr. Shahbaz Rogel Hemoglobin (Bld) [Mass/Vol] 12.8 g/dL Normal 12.0-16.0 [facility] Comment on above: Performed By: #### C BC ####[facility] Hzzdtkkasg0911[address] [place], [place] [address]Dr. Shahbaz Rogel IG # 0.10 10e3/ul Critically high 0.00-0.03 [facility] Comment on above: Performed By: #### C BC ####[facility] Twunouqgti9829[address] [place], [place] [address]Dr. Shahbaz Rogel IG % 0.5 % Normal 0.0-0.5 [facility] Comment on above: Performed By: #### C BC ####[facility] Jlgsirrezu6125[address] [place], [place] [address]Dr. Shahbaz Rogel LYMPH # 0.7 103/ul Critically low 1.2-3.8 [facility] Comment on above: Performed By: #### C BC ####[facility] Jqpunuzhmn5834[address] [place], [place] [address]Dr. Shahbaz Rogel Lymphocytes/100 WBC (Bld) 6.2 % Critically low 20.5-60.0 [facility] Comment on above: Result Comment: dif. not rqd. same as 01/18/22 Performed By: #### C BC ####[facility] Vkuvgzwthv[address] [place], [place] [address]DrChen Shahbaz Rogel MANUAL DIFF REQ NO Normal [facility] Comment on above: Performed By: #### C BC ####[facility] Roxyvkabhe[address] [place] [address]Dr. Shahbaz Rogel MCH (RBC) [Entitic mass] 27.2 pg Normal 26.7-34.0 [facility] Comment on above: Performed By: #### C BC ####[facility] Faskvbphxd44[address] [place] [address]Dr. Shahbaz Rogel MCHC (RBC) [Mass/Vol] 31.1 g/dL Normal 29.9-35.2 [facility] Comment on above: Performed By: #### C BC ####[facility] Ncehfvmqyn1602[address] [place], [place] [address]Dr. Shabhaz Rogel MCV (RBC) [Entitic vol] 87.5 fL Normal 81.0-99.0 [facility] Comment on above: Performed By: #### C BC ####[facility] Bonwlhqgav6[address] [place], [place] [address]DrChen Rogel MONO # 0.2 103/ul Critically low 0.3-0.8 [facility] Comment on above: Performed By: #### C BC ####[facility] Nqobkknqmw6640[address] [place], [place] [address]DrChen Rogel Monocytes/100 WBC (Bld) 1.7 % Normal 1.7-12.0 [facility] Comment on above: Performed By: #### C BC ####[facility] Hmaxaaqywz5485[address] [place], [place] [address]DrChen Rogel NEUT # 9.8 103/ul Critically high 1.4-6.5 [facility] Comment on above: Performed By: #### C BC ####[facility] Tbjupkhbbk7823[address] [place], [place] [address]DrChen Rogel Neutrophils/100 WBC (Bld) 91.6 % Critically high 43.0-75.0 [facility] Comment on above: Performed By: #### C BC ####[facility] Vrvgmfikwv1136[address] [place], [place] [address]DrChen Rogel Platelet mean volume (Bld) [Entitic vol] 10.0 fL Normal 9.5-13.5 [facility] Comment on above: Performed By: #### C BC ####[facility] Crkjpndipw8[address] [place] [address]Dr. Shahbaz Rogel PLT 198 103/ul Normal 150-450 [facility] Comment on above: Performed By: #### C BC ####[facility] Lakngvruip76[address] [place] [address]Dr. Shahbaz Rogel RBC 4.71 106/ul Normal 4.20-5.40 [facility] Comment on above: Performed By: #### C BC ####[facility] Vznlybhefg8006 [place] [address]Dr. Shahbaz Rogel WBC 10.7 103/ul Normal 4.0-11.0 [facility] Comment on above: Performed By: #### C BC ####[facility] Thpawkauto[address] [place] [address]Dr. Shahbaz Juan F POINT OF CARE GLUCOSEon 01-01 Glucose [Mass/Vol] 157 mg/dL Critically high 74-106 [facility] Comment on above: Performed By: #### P OCGLUC ####[facility] Fnydxvsryo[address] [place], [place] [address]Dr. Shahbaz Rogel Glucose [Mass/Vol] 225 mg/dL Critically high -106 [facility] Comment on above: Performed By: #### P OCGLUC ####[facility] Jkcemxelmz[address] [place] [address]Dr. Shahbaz Rogel Glucose [Mass/Vol] 185 mg/dL Critically high 74-106 [facility] Comment on above: Performed By: #### P OCGLUC ####[facility] Wfwoxmgtcg4467[address] [place], [place] [address]Dr. Shahbaz Rogel Glucose [Mass/Vol] 134 mg/dL Critically high -106 [facility] Comment on above: Performed By: #### P OCGLUC ####[facility] Nduwzwslys7183[address] [place], [place] [address]Dr. Shahbaz Rogel PROF 14(COMP METB)on 022 Albumin [Mass/Vol] 3.0 g/dL Critically low 3.4-5.0 [facility] Comment on above: Performed By: #### C MP ####[facility] Lgwmwpauiu8167 [place] [address]Dr. Shahbaz Rogel Albumin/Globulin [Mass ratio] 0.9 {ratio} Normal [facility] Comment on above: Performed By: #### C MP ####[facility] Fofkpnjudx[address] [place], [place] [address]Dr. Shahbaz Rogel ALP [Catalytic activity/Vol] 81 U/L Normal 46-116 [facility] Comment on above: Performed By: #### C MP ####[facility] Wolphxmrfo[address] [place], [place] [address]Dr. Shahbaz Rogel ALT [Catalytic activity/Vol] 14 U/L Normal 14-59 [facility] Comment on above: Performed By: #### C MP ####[facility] Grbrueasrs10[address] [place], [place] [address]Dr. Shahbaz Rogel Anion gap [Moles/Vol] 13.1 mmol/L Normal [facility] Comment on above: Performed By: #### C MP ####[facility] Acvsmzcxrz2375[address] [place], [place] [address]Dr. Shahbaz Rogel AST [Catalytic activity/Vol] 20 U/L Normal 15-37 [facility] Comment on above: Performed By: #### C MP ####[facility] Yyvrybyjid3[address] [place], [place] [address]Dr. Shahbaz Rogel Bilirubin [Mass/Vol] 0.3 mg/dL Normal 0.2-1.3 [facility] Comment on above: Performed By: #### C MP ####[facility] Zyrwgkacnt8394[address] [place], [place] [address]Dr. Shahbaz Rogel Calcium [Mass/Vol] 8.5 mg/dL Normal 8.5-10.1 [facility] Comment on above: Performed By: #### C MP ####[facility] Xhxawmazez6244[address] [place], [place] [address]Dr. Shahbaz Rogel Chloride [Moles/Vol] 107 mmol/L Normal 98-107 [facility] Comment on above: Performed By: #### C MP ####[facility] Qzlgtlhgge39[address] [place] [address]Dr. Shahbaz Rogel CO2 [Moles/Vol] 24.0 mmol/L Normal 22.0-30.0 [facility] Comment on above: Performed By: #### C MP ####[facility] Xjpdqvyxiy9153 [place] [address]Dr. Shahbaz Rogel Creatinine [Mass/Vol] 1.00 mg/dL Normal 0.52-1.04 [facility] Comment on above: Performed By: #### C MP ####[facility] Frmrrnzwxd4[address] [place], [place] [address]Dr. Shahbaz Rogel EGFR-AF PORTUGUESE >60 Normal >=60 [facility] Comment on above: Performed By: #### C MP ####[facility] Wqbbomzclv8[address] [place] [address]Dr. Shahbaz Rogel EGFR-NON AF PORTUGUESE 57 mL/min/1.73m2 Critically low >=60 [facility] Comment on above: Performed By: #### C MP ####[facility] Dmxqrtzvbs0407 [place] [address]Dr. Shahbaz Rogel Globulin (S) [Mass/Vol] 3.4 g/dL Normal [facility] Comment on above: Performed By: #### C MP ####[facility] Hyijyjsnqk65[address] [place] [address]Dr. Shahbaz Rogel Glucose [Mass/Vol] 153 mg/dL Critically high 74-106 [facility] Comment on above: Performed By: #### C MP ####[facility] Nbrjzbggnh7263 [place] [address]Dr. Shahbaz Rogel Potassium [Moles/Vol] 4.1 mmol/L Normal 3.4-5.0 [facility] Comment on above: Performed By: #### C MP ####[facility] Xbawtqsuvl7215 [place] [address]Dr. Shahbaz Rogel Protein [Mass/Vol] 6.4 g/dL Normal 6.1-8.2 [facility] Comment on above: Performed By: #### C MP ####[facility] Nnkqqqhubz8864[address] [place], [place] [address]Dr. Shahbaz Rogel Sodium [Moles/Vol] 140 mmol/L Normal 137-145 [facility] Comment on above: Performed By: #### C MP ####[facility] Xkvjlbmvft[address] [place], [place] [address]Dr. Shahbaz Rogel Urea nitrogen [Mass/Vol] 26.0 mg/dL Critically high 7.0-18.0 [facility] Comment on above: Performed By: #### C MP ####[facility] Zsiekjotns[address] [place], [place] [address]Dr. Shahbaz Rogel Urea nitrogen/Creatinine [Mass ratio] 26.5 mg/mg Normal [facility] Comment on above: Performed By: #### C MP ####[facility] Zqdkoblmmw[address] [place], [place] [address]DrChen Rogel BNPon 01-19-2022 Natriuretic peptide B (Bld) [Mass/Vol] 117.0 pg/mL Normal <=900.0 [facility] Comment on above: Performed By: #### B OPERATIONAL RISK CONSULTANT, CMP ####[facility] Ulnitqbmdq9[address] [place], [place] [address]DrChen Rogel CBC AUTO DIFFon 01-19-2022 BASO # 0.0 103/ul Normal 0.0-0.1 [facility] Comment on above: Performed By: #### C BC ####[facility] Qekwesqdgx[address] [place], [place] [address]DrChen Rogel Basophils/100 WBC (Bld) 0.0 % Critically low 0.2-2.0 [facility] Comment on above: Performed By: #### C BC ####[facility] [address] [place], [place] [address]DrChen Rogel EO # 0.0 103/ul Normal 0.0-0.7 [facility] Comment on above: Performed By: #### C BC ####[facility] Vwftkqpoyn[address] [place], [place] [address]Dr. Shahbaz Rogel Eosinophils/100 WBC (Bld) 0.0 % Critically low 0.9-7.0 [facility] Comment on above: Performed By: #### C BC ####[facility] Ylwmurlvqt32[address] [place] [address]Dr. Shahbaz Rogel Erythrocyte distribution width (RBC) [Ratio] 13.4 % Normal 11.0-15.0 [facility] Comment on above: Performed By: #### C BC ####[facility] Ekkjvuiqbh[address] [place], [place] [address]Dr. Shahbaz Rogel Hematocrit (Bld) [Volume fraction] 46.3 % Normal 36.0-48.0 [facility] Comment on above: Performed By: #### C BC ####[facility] Izjvkgigai[address] [place], [place] [address]Dr. Shahbaz Rogel Hemoglobin (Bld) [Mass/Vol] 14.3 g/dL Normal 12.0-16.0 [facility] Comment on above: Performed By: #### C BC ####[facility] Knnqdrbyst[address] [place], [place] [address]Dr. Shahbaz Rogel IG # 0.00 10e3/ul Normal 0.00-0.03 [facility] Comment on above: Performed By: #### C BC ####[facility] Bxwvaugcow[address] [place], [place] [address]Dr. Shahbaz Rogel IG % 0.0 % Normal 0.0-0.5 [facility] Comment on above: Performed By: #### C BC ####[facility] Hninrazlny[address] [place], [place] [address]Dr. Shahbaz Rogel LYMPH # 0.6 103/ul Critically low 1.2-3.8 [facility] Comment on above: Performed By: #### C BC ####[facility] Moyocdwkeu[address] [place], [place] [address]Dr. Shahbaz Rogel Lymphocytes/100 WBC (Bld) 14.2 % Critically low 20.5-60.0 [facility] Comment on above: Performed By: #### C BC ####[facility] Szomfgcamu[address] [place] [address]Dr. Shahbaz Rogel MANUAL DIFF REQ NO Normal [facility] Comment on above: Performed By: #### C BC ####[facility] Uwpidwcsjc[address] [place] [address]Dr. Shahbaz Rogel MCH (RBC) [Entitic mass] 27.7 pg Normal 26.7-34.0 [facility] Comment on above: Performed By: #### C BC ####[facility] Kxmkuvakhd98[address] [place] [address]Dr. Shahbaz Juan F MCHC (RBC) [Mass/Vol] 30.9 g/dL Normal 29.9-35.2 [facility] Comment on above: Performed By: #### C BC ####[facility] Dnlczslzht3304 [place] [address]Dr. Shahbaz Juan F MCV (RBC) [Entitic vol] 89.6 fL Normal 81.0-99.0 [facility] Comment on above: Performed By: #### C BC ####[facility] Gwahjjrchb[address] [place] [address]Dr. Shahbaz Juan F MONO # 0.0 103/ul Critically low 0.3-0.8 [facility] Comment on above: Performed By: #### C BC ####[facility] Liqehjsbkn[address] [place] [address]Dr. Lilajarrod Rogel Monocytes/100 WBC (Bld) 1.0 % Critically low 1.7-12.0 [facility] Comment on above: Performed By: #### C BC ####[facility] Ictoxvexjh4730 [place] [address]Dr. Shahbaz Juan F NEUT # 3.5 103/ul Normal 1.4-6.5 [facility] Comment on above: Performed By: #### C BC ####[facility] Bfeuqwsilg[address] [place], [place] [address]Dr. Lilajarrod Rogel Neutrophils/100 WBC (Bld) 84.8 % Critically high 43.0-75.0 [facility] Comment on above: Performed By: #### C BC ####[facility] Xpsfzxyzme6743 [place] [address]Dr. Shahbaz Rogel Platelet mean volume (Bld) [Entitic vol] 9.8 fL Normal 9.5-13.5 [facility] Comment on above: Performed By: #### C BC ####[facility] Ylgsbjaayf3334 [place] [address]Dr. Shahbaz Rogel PLT 185 103/ul Normal 150-450 [facility] Comment on above: Performed By: #### C BC ####[facility] Cuxfivbqgd[address] [place], [place] [address]Dr. Shahbaz Rogel RBC 5.17 106/ul Normal 4.20-5.40 [facility] Comment on above: Performed By: #### C BC ####[facility] Rxqzyiufia23[address] [place], [place] [address]Dr. Shahbaz Rogel WBC 4.2 103/ul Normal 4.0-11.0 [facility] Comment on above: Performed By: #### C BC ####[facility] Brzrxdobtd[address] [place], [place] [address]Dr. Shahbaz Rogel LACTATE/LACTIC ACIDon 2021 Lactate [Moles/Vol] 1.7 mmol/L Normal 0.7-2.0 [facility] Comment on above: Performed By: #### L ACT ####[facility] Woxshkbfnl[address] [place], [place] [address]Dr. Shahbaz Rogel POINT OF CARE GLUCOSEon 01-01 Glucose [Mass/Vol] 173 mg/dL Critically high 74-106 [facility] Comment on above: Performed By: #### P OCGLUC ####[facility] Okpldimnke3254 [place] [address]Dr. Shahbaz Rogel Glucose [Mass/Vol] 181 mg/dL Critically high 74-106 [facility] Comment on above: Performed By: #### P OCGLUC ####[facility] Ovdyndaldq[address] [place], [place] [address]Dr. Shahbaz Rogel Glucose [Mass/Vol] 154 mg/dL Critically high 74-106 [facility] Comment on above: Performed By: #### P OCGLUC ####[facility] Sicmsqapge7038 [place] [address]Dr. Shahbaz Rogel PROF 14(COMP METB)on 022 Albumin [Mass/Vol] 3.5 g/dL Normal 3.4-5.0 [facility] Comment on above: Performed By: #### B OPERATIONAL RISK CONSULTANT, CMP ####[facility] Kanwpdbgvi1926 [place] [address]Dr. Shahbaz Rogel Albumin/Globulin [Mass ratio] 0.9 {ratio} Normal [facility] Comment on above: Performed By: #### B OPERATIONAL RISK CONSULTANT, CMP ####[facility] Mniuksvuek8655 [place] [address]Dr. Shahbaz Rogel ALP [Catalytic activity/Vol] 107 U/L Normal 46-116 [facility] Comment on above: Performed By: #### B OPERATIONAL RISK CONSULTANT, CMP ####[facility] Rvvihqcsrg[address] [place], [place] [address]Dr. Shahbaz Rogel ALT [Catalytic activity/Vol] 18 U/L Normal 14-59 [facility] Comment on above: Performed By: #### B OPERATIONAL RISK CONSULTANT, CMP ####[facility] Swftkhbfzm8945 [place] [address]Dr. Shahbaz Rogel Anion gap [Moles/Vol] 14.1 mmol/L Normal [facility] Comment on above: Performed By: #### B OPERATIONAL RISK CONSULTANT, CMP ####[facility] Dwrossyeel9018[address] [place], [place] [address]Dr. Shahbaz Rogel AST [Catalytic activity/Vol] 19 U/L Normal 15-37 [facility] Comment on above: Performed By: #### B OPERATIONAL RISK CONSULTANT, CMP ####[facility] Jergdqveuw8026 [place] [address]Dr. Shahbaz Rogel Bilirubin [Mass/Vol] 0.5 mg/dL Normal 0.2-1.3 [facility] Comment on above: Performed By: #### B OPERATIONAL RISK CONSULTANT, CMP ####[facility] Ipkwjiesnb9527 [place] [address]Dr. Shahbaz Rogel Calcium [Mass/Vol] 8.5 mg/dL Normal 8.5-10.1 [facility] Comment on above: Performed By: #### B OPERATIONAL RISK CONSULTANT, CMP ####[facility] Xfphxncsmf9803 [place] [address]Dr. Shahbaz Rogel Chloride [Moles/Vol] 103 mmol/L Normal 98-107 [facility] Comment on above: Performed By: #### B OPERATIONAL RISK CONSULTANT, CMP ####[facility] Lvvtrydtjs[address] [place], [place] [address]Dr. Shahbaz Rogel CO2 [Moles/Vol] 25.4 mmol/L Normal 22.0-30.0 [facility] Comment on above: Performed By: #### B OPERATIONAL RISK CONSULTANT, CMP ####[facility] Zantuogtnb[address] [place], [place] [address]Dr. Shahbaz Rogel Creatinine [Mass/Vol] 1.48 mg/dL Critically high 0.52-1.04 [facility] Comment on above: Performed By: #### B OPERATIONAL RISK CONSULTANT, CMP ####[facility] Fslqspxhto[address] [place], [place] [address]Dr. Shahbaz Rogel EGFR-AF PORTUGUESE 44 mL/min/1.73m2 Critically low >=60 [facility] Comment on above: Performed By: #### B OPERATIONAL RISK CONSULTANT, CMP ####[facility] Oxbxlkjtoj[address]27[address] [place], [place] [address]Dr. Shahbaz Rogel EGFR-NON AF PORTUGUESE 36 mL/min/1.73m2 Critically low >=60 [facility] Comment on above: Performed By: #### B OPERATIONAL RISK CONSULTANT, CMP ####[facility] Mqctjiwnxa[address] [place], [place] [address]Dr. Shahbaz Rogel Globulin (S) [Mass/Vol] 3.7 g/dL Normal [facility] Comment on above: Performed By: #### B OPERATIONAL RISK CONSULTANT, CMP ####[facility] Gfoqhqzfer25[address] [place], [place] [address]Dr. Shahbaz Rogle Glucose [Mass/Vol] 203 mg/dL Critically high 74-106 [facility] Comment on above: Performed By: #### B OPERATIONAL RISK CONSULTANT, CMP ####[facility] Cpgzbraikp1617[address] [place], [place] [address]Dr. Shahbaz Rgoel Potassium [Moles/Vol] 3.5 mmol/L Normal 3.4-5.0 [facility] Comment on above: Performed By: #### B OPERATIONAL RISK CONSULTANT, CMP ####[facility] Qifhiygxai17[address] [place], [place] [address]Dr. Lilajarrod Juan F Protein [Mass/Vol] 7.2 g/dL Normal 6.1-8.2 [facility] Comment on above: Performed By: #### B OPERATIONAL RISK CONSULTANT, CMP ####[facility] Wriacdrgon32[address] [place], [place] [address]Dr. Lilajarrod Juan F Sodium [Moles/Vol] 139 mmol/L Normal 137-145 [facility] Comment on above: Performed By: #### B OPERATIONAL RISK CONSULTANT, CMP ####[facility] Knzdjzpaew[address] [place], [place] [address]Dr. Shahbaz Rogel Urea nitrogen [Mass/Vol] 17.0 mg/dL Normal 7.0-18.0 [facility] Comment on above: Performed By: #### B OPERATIONAL RISK CONSULTANT, CMP ####[facility] Ptxbcomuiw7[address] [place], [place] [address]Dr. Lilajarrod Juan F Urea nitrogen/Creatinine [Mass ratio] 11.5 mg/mg Normal [facility] Comment on above: Performed By: #### B OPERATIONAL RISK CONSULTANT, CMP ####[facility] Cfohrxnzwg8432[address] [place], [place] [address]Dr. Lilajarrod Juan F BNPon 01-18-2022 Natriuretic peptide B (Bld) [Mass/Vol] 55.0 pg/mL Normal <=900.0 [facility] Comment on above: Performed By: #### C MP, BNP, HSTROPN ####[facility] Rxrrxwagsw68[address] [place], [place] [address]Dr. Lilajarrod Juan F CBC W MANUAL DIFFon 01-19-20 ATYPICAL LYMPH # 0.12 103/ul Normal [facility] Comment on above: Performed By: #### C CAIN ####[facility] Cnqshtknpk[address] [place], [place] [address]Dr. Shahbaz Rogel ATYPICAL LYMPH % 2 % Normal [facility] Comment on above: Performed By: #### C CAIN ####[facility] [address]wct[address] [place], [place] [address]Dr. Yijarrod Rogel BAND # 0.0 103/ul Normal 0.0-0.3 [facility] Comment on above: Performed By: #### C BCMAN ####[facility] Zalmfbzkyq[address] [place] [address]Dr. Yilan Rogel BAND % 0 % Normal 0-5 [facility] Comment on above: Performed By: #### C BCMAN ####[facility] Msaawfmtgd8[address] [place], [place] [address]Dr. Yilan Rogel BASOM # 0.00 103/ul Normal 0.00-0.10 [facility] Comment on above: Performed By: #### C BCBRICE ####[facility] Zswjxmlocw[address] [place], [place] [address]Dr. Shahbaz Rogel BASOM % 0.0 % Critically low 0.2-2.0 [facility] Comment on above: Performed By: #### C BCBRICE ####[facility] Vhztpkului[address] [place], [place] [address]Dr. Yilan Rogel BLAST # Normal [facility] Comment on above: Performed By: #### C CAIN ####[facility] Ifzlemgvor[address] [place], [place] [address]Dr. Yilan Rogel BLAST % Normal [facility] Comment on above: Performed By: #### C CAIN ####[facility] Sdodvabkui[address] [place], [place] [address]Dr. Shahbaz Rogel CORRECTED WBC Normal 4.0-11.0 [facility] Comment on above: Performed By: #### C BCBRICE ####[facility] Rudpteyqty[address] [place], [place] [address]Dr. Yijarrod Rogel EOS # 0.25 103/ul Normal 0.00-0.70 [facility] Comment on above: Performed By: #### C BCBRICE ####[facility] Csthapybvu[address] [place], [place] [address]Dr. Yijarrod Rogel EOS% 4.0 % Normal 0.9-7.0 [facility] Comment on above: Performed By: #### C BCBRICE ####[facility] [address]fdzwlbzn28[address] [place] [id number]. Shahbaz Rogel HCT 46.8 % Normal 36.0-48.0 [facility] Comment on above: Performed By: #### C CAIN ####[facility] Vvdqgwlzit4792 [place] [id number]. Shahbaz Rogel HGB 14.9 g/dl Normal 12.0-16.0 [facility] Comment on above: Performed By: #### C CAIN ####[facility] Oxyrjyrpbf6562 [place] [id number]. Shahbaz Rogel LYMPHM # 0.68 103/ul Critically low 1.20-3.80 [facility] Comment on above: Performed By: #### C CAIN ####[facility] Elhmyarivh6619 [place] [id number]. Shahbaz Rogel LYMPHM% 11.0 % Critically low 20.5-60.0 [facility] Comment on above: Performed By: #### C CAIN ####[facility] Spaxcidqyr1613 [place] [id number]. Shahbaz Rogel MCH 27.6 pg Normal 26.7-34.0 [facility] Comment on above: Performed By: #### C CAIN ####[facility] Nlfxjaejuw3479 [place] [phone]. Shahbaz Rogel MCHC 31.8 g/dl Normal 29.9-35.2 [facility] Comment on above: Performed By: #### C CAIN ####[facility] Xyqbwnzihf6953 [place] [phone]. Shahbaz Rogel MCV 86.8 fL Normal 81.0-99.0 [facility] Comment on above: Performed By: #### C CAIN ####[facility] [address]thpb[address]fts[address] [place], [place] [address]Dr. Shahbaz Rogel METAMYELOCYTE # Normal [facility] Comment on above: Performed By: #### C CAIN ####[facility] Xsfcaddncy0988 [place] [phone]. Shahbaz Rogel METAMYELOCYTE % Normal [facility] Comment on above: Performed By: #### C CAIN ####[facility] Dpyrugcsig1625 [place], [place] [address]Dg. Shahbaz Rogel MONOM# 0.19 103/ul Critically low 0.30-0.80 [facility] Comment on above: Performed By: #### C CAIN ####[facility] Yjucysaxkh2948 [place] [phone]. Shahbaz Rogel MONOM% 3.0 % Normal 1.7-12.0 [facility] Comment on above: Performed By: #### C CAIN ####[facility] Tnqrrhejjw8106 [place] [phone]. Shahbaz Rogel MPV 9.6 fL Normal 9.5-13.5 [facility] Comment on above: Performed By: #### Cheri BARLOW ####[facility] Qafombsojx3842 [place] [phone]. Shahbaz Rogel MYELOCYTE # Normal [facility] Comment on above: Performed By: #### Cheri BARLOW ####[facility] Phrfulyiwr0789 [place] [phone]. Shahbaz Rogel MYELOCYTE % Normal [facility] Comment on above: Performed By: #### Cheri BARLOW ####[facility] Yhmrjlxveq8020 [place] [phone]. Shahbaz Rogel NRBC Normal [facility] Comment on above: Performed By: #### Cheri BARLOW ####[facility] Foknmcqnzz6429 [place] [phone]. Shahbaz Rogel PLT 203 103/ul Normal 150-450 [facility] Comment on above: Performed By: #### Cheri BARLOW ####[facility] Zzpstrtqyh8529 [place] [phone]. Shahbaz Rogel RBC 5.39 106/ul Normal 4.20-5.40 [facility] Comment on above: Performed By: #### Cheri BARLOW ####[facility] Pnyyzbitwk2416 [place] [phone]. Shahbaz Rogel RDW 13.7 % Normal 11.0-15.0 [facility] Comment on above: Performed By: #### C BCMAN ####[facility] Tdqzyngmyg7472 [place], [place] [address]Bx. Shahbaz Rogel SEG # 4.96 103/ul Normal 1.40-6.50 [facility] Comment on above: Performed By: #### C BCMAN ####[facility] Cngkkfcvew0219 [place], [place] [address]Er. Shahbaz Rogel SEG % 80.0 % Critically high 43.0-75.0 [facility] Comment on above: Performed By: #### C BCMAN ####[facility] Catgematsg1626 [place], [place] [address]Hd. Shahbaz Rogel WBC 6.2 103/ul Normal 4.0-11.0 [facility] Comment on above: Performed By: #### C BCMAN ####[facility] Urpumgheej5030 [place], [place] [address]Ot. Shahbaz Rogel CULTURE BLOODon 01-18-2022 Microscopic examination of blood, culture Culture Observations: No growth at 5 days. Normal [facility] Comment on above: Performed By: #### B LDCX2 ####[facility] Shjvsvwril8044 [place], [place] [address]Fg. Shahbaz Rogel Microscopic examination of blood, culture Culture Observations: No growth at 5 days Normal [facility] Comment on above: Performed By: #### B LDCX1 ####[facility] Plhrdiarqe2188 [place] [phone]. Shahbaz Rogel Covid-19 PCR (CVDTBH)on 12-31 SARS-CoV-2 (COVID-19) RNA PAVAN+probe Ql (Unsp spec) Not detected Normal NOT DETECTED [facility] Comment on above: Result Comment: This test is not yet approved or cleared by the [place] FDA. When there are no FDA-approved or cleared tests available, and other criteria are met, FDA can make tests available under an emergency access mechanism called an Emergency Use Authorization (EUA). The EUA for this test is supported by the [place] of Health and Human Service's (HHS's) declaration [...] with SARS-CoV-2. Performed By: #### C VDTBH ####[facility] [address]af[address]rzz[address] [place] [address]. Shahbaz Rogel D-DIMERon 01-18-2022 D-DIMER 0.29 mg/L FEU Normal 0.19-0.50 [facility] Comment on above: Performed By: #### D DIM ####[facility] [address] [place] [address] Shahbaz [facility] D-DIMER COMMENTS SEE BELOW Normal [facility] Comment on above: Result Comment: Incr [...] generalized hospitalization. Performed By: #### D DIM ####[facility] Iclsvqab[address] [place] [address]. Shahbaz Rogel INFLUENZA A AND B AGon 01-18 INFLUANEGH SEE BELOW Normal [facility] Comment on above: Result Comment: Nega tive for Flu A protein angiten. Infection due to Flu A cannot be ruled out. Flu A angiten in the sample may be below the detection limit of the test. Performed By: #### I NFLUAB ####[facility] Sngsfrrqiy[address] [place], [place] [address]Dr. Shahbaz Rogel INFLUBNEGH SEE BELOW Normal [facility] Comment on above: Result Comment: Nega tive for Flu B protein antigen. Infection due to Flu B cannot be ruled out. Flu B antigen in the sample may be below the detection limit of the test. Performed By: #### I NFLUAB ####[facility] Ifynshyjab[address] [place], [place] [address]Dr. Shahbaz Rogel INFLUENZA A AG Negative Normal NEGATIVE SEE COMMENT [facility] Comment on above: Performed By: #### I NFLUAB ####[facility] Molytetldh[address] [place], [place] [address]Dr. Shahbaz Rogel INFLUENZA B AG Negative Normal NEGATIVE SEE COMMENT [facility] Comment on above: Performed By: #### I NFLUAB ####[facility] Cimgdfoadq4[address] [place], [place] [address]Dr. Shahbaz Rogel INTERNAL CONTROLS Within Normal Limits Normal Wi thin Normal Limits [facility] Comment on above: Performed By: #### I NFLUAB ####[facility] Wapvlivfuw[address] [place], [place] [address]Dr. Shahbaz Rogel LACTATE/LACTIC ACIDon 2021 Lactate [Moles/Vol] 1.0 mmol/L Normal 0.7-2.0 [facility] Comment on above: Performed By: #### L ACT ####[facility] Sanwgnoqvo11[address] [place], [place] [address]Dr. Shahbaz Rogel PROF 14(COMP METB)on 022 Albumin [Mass/Vol] 3.8 g/dL Normal 3.4-5.0 [facility] Comment on above: Performed By: #### C MP, BNP, HSTROPN ####[facility] Zixweapfcz69[address] [place], [place] [address]Dr. Shahbaz Rogel Albumin/Globulin [Mass ratio] 1.0 {ratio} Normal [facility] Comment on above: Performed By: #### C MP, BNP, HSTROPN ####[facility] Xicvklcepi[address] [place], [place] [address]Dr. Shahbaz Rogel ALP [Catalytic activity/Vol] 116 U/L Normal 46-116 [facility] Comment on above: Performed By: #### C MP, BNP, HSTROPN ####[facility] Krhxuyuwud33[address] [place] [address]Dr. Shahbaz Rogel ALT [Catalytic activity/Vol] 16 U/L Normal 14-59 [facility] Comment on above: Performed By: #### C MP, BNP, HSTROPN ####[facility] Negsjtpujr6715 [place] [address]Dr. Shahbaz Rogel Anion gap [Moles/Vol] 9.4 mmol/L Normal [facility] Comment on above: Performed By: #### C MP, BNP, HSTROPN ####[facility] Fkwllnlttu6824 [place] [address]Dr. Shahbaz Rogel AST [Catalytic activity/Vol] 19 U/L Normal 15-37 [facility] Comment on above: Performed By: #### C MP, BNP, HSTROPN ####[facility] Erkzfwrwpv[address] [place], [place] [address]Dr. Shahbaz Rogel Bilirubin [Mass/Vol] 0.5 mg/dL Normal 0.2-1.3 [facility] Comment on above: Performed By: #### C MP, BNP, HSTROPN ####[facility] Zgzqhjggzk[address] [place], [place] [address]Dr. Shahbaz Rogel Calcium [Mass/Vol] 8.9 mg/dL Normal 8.5-10.1 [facility] Comment on above: Performed By: #### C MP, BNP, HSTROPN ####[facility] Plynbudlph[address] [place], [place] [address]Dr. Shahbaz Rogel Chloride [Moles/Vol] 104 mmol/L Normal 98-107 [facility] Comment on above: Performed By: #### C MP, BNP, HSTROPN ####[facility] Nmbwthpttv[address] [place], [place] [address]Dr. Shahbaz Rogel CO2 [Moles/Vol] 27.2 mmol/L Normal 22.0-30.0 [facility] Comment on above: Performed By: #### C MP, BNP, HSTROPN ####[facility] Hlkgwvhvpo[address] [place], [place] [address]Dr. Shahbaz Rogel Creatinine [Mass/Vol] 0.99 mg/dL Normal 0.52-1.04 [facility] Comment on above: Performed By: #### C MP, BNP, HSTROPN ####[facility] Tpxutvcewn475[address] [place] [address]Dr. Shahbaz Rogel EGFR-AF PORTUGUESE >60 Normal >=60 [facility] Comment on above: Performed By: #### C MP, BNP, HSTROPN ####[facility] Qvblpjtohn7050 [place] [address]Dr. Shahbaz Rogel EGFR-NON AF PORTUGUESE 58 mL/min/1.73m2 Critically low >=60 [facility] Comment on above: Performed By: #### C MP, BNP, HSTROPN ####[facility] Lseqiijltn1698 [place] [address]Dr. Shahbaz Rogel Globulin (S) [Mass/Vol] 3.8 g/dL Normal [facility] Comment on above: Performed By: #### C MP, BNP, HSTROPN ####[facility] Anjpncgaat3459 [place] [address]Dr. Shahbaz Rogel Glucose [Mass/Vol] 104 mg/dL Normal 74-106 [facility] Comment on above: Performed By: #### C MP, BNP, HSTROPN ####[facility] Spkcgvynme3195 [place] [address]Dr. Shahbaz Rogel Potassium [Moles/Vol] 3.6 mmol/L Normal 3.4-5.0 [facility] Comment on above: Performed By: #### C MP, BNP, HSTROPN ####[facility] Dghraexhaa0072 [place] [address]Dr. Shahbaz Rogel Protein [Mass/Vol] 7.6 g/dL Normal 6.1-8.2 [facility] Comment on above: Performed By: #### C MP, BNP, HSTROPN ####[facility] Sgqqaletef0981 [place] [address]Dr. Shahbaz Rogel Sodium [Moles/Vol] 137 mmol/L Normal 137-145 [facility] Comment on above: Performed By: #### C MP, BNP, HSTROPN ####[facility] [id number] [place] [id number]. Shahbaz Rogel Urea nitrogen [Mass/Vol] 9.0 mg/dL Normal 7.0-18.0 [facility] Comment on above: Performed By: #### C MP, BNP, HSTROPN ####[facility] [id number] [place] [id number]. Shahbaz Rogel Urea nitrogen/Creatinine [Mass ratio] 9.1 mg/mg Normal [facility] Comment on above: Performed By: #### C MP, BNP, HSTROPN ####[facility] [id number] [place] [address]Dr. Shahbaz Rogel TROPONIN, HIGH SENSITIVITYon 01-18-2022 HSTROP 6.4 pg/mL Normal 4.0-35.5 [facility] Comment on above: Result Comment: CUT- OFF POINTS HAVE BEEN ESTABLISHED BASED ON THE FOURTH UNIVERSAL DEFINITIONS OF MYOCARDIALINFARCTION. THE UPPER REFERENCE LIMIT (URL) OF TROPONIN, DEFINED THE 99TH PERCENTILE OFcTnI DISTRIBUTION IN A REFERENCE POPULATION, HAS BEEN CONFIRMED THE DECISION THRESHOLDFOR MS DIAGNOSIS. Performed By: #### C MP, BNP, HSTROPN ####[facility] [id number] [place] [address]Dr. Shahbaz Rogel XR CHEST 2 Von 01-18-2022 XR CHEST 2 V Normal [facility] URINALYSIS REFLEXon 04-04-20 20 Appearance (U) CLEAR Normal CLEAR [facility] Comment on above: Order Comment: No: D o not add to previous draw Performed By: #### 1 0070, 50533, 58650, 92891, 52023, 82698 #### [facility] [address] [place] [address], [facility] Bilirubin [Mass/Vol] Negative Normal NEGATIVE [facility] Comment on above: Order Comment: No: D o not add to previous draw Performed By: #### 1 0070, 15005, 49379, 95616, 91115, 71687 #### [facility] [address] [place] [address], [place] BLOOD Negative Normal NEGATIVE [facility] Comment on above: Order Comment: No: D o not add to previous draw Performed By: #### 1 0070, 37963, 65379, 11830, 07507, 46610 #### [facility] [address] [place] [address], [place] Color (U) YELLOW Normal YELLOW [facility] Comment on above: Order Comment: No: D o not add to previous draw Performed By: #### 1 0070, 05678, 33886, 33335, 84247, 73977 #### [facility] [address] [place] [address], [place] Glucose [Mass/Vol] Negative Normal NEGATIVE [facility] Comment on above: Order Comment: No: D o not add to previous draw Performed By: #### 1 0070, 52870, 46674, 80447, 08879, 07853 #### [facility] [address] [place] [address], [place] KETONE Negative Normal NEGATIVE [facility] Comment on above: Order Comment: No: D o not add to previous draw Performed By: #### 1 0070, 17286, 55255, 15780, 54654, 30492 #### [facility] [address] [place] [address], [place] LEUK ELIU Negative Normal NEGATIVE [facility] Comment on above: Order Comment: No: D o not add to previous draw Performed By: #### 1 0070, 43252, 84571, 43913, 21964, 15161 #### [facility] [address] [place] [address], [place] MICRO NOT DONE Normal [facility] Comment on above: Order Comment: No: D o not add to previous draw Result Comment: Micr oscopics not performed on urines with negative chemical reactions unless requested in original order Performed By: #### 1 0070, 22890, 80838, 35727, 80133, 68727 #### [facility] [address] [facility] [place] [address], [facility] Nitrite Ql (U) Negative Normal NEGATIVE [facility] Comment on above: Order Comment: No: D o not add to previous draw Performed By: #### 1 0070, 69911, 26100, 42480, 72514, 31071 #### [facility] [address] [facility] [address], [facility] pH (Bld) 5.0 Normal 5.0-8.0 [facility] Comment on above: Order Comment: No: D o not add to previous draw Performed By: #### 1 0070, 81706, 63628, 38478, 63495, 77336 #### [facility] [address] [facility] [address], [facility] Protein (U) [Mass/Vol] Negative Normal NEGATIVE [facility] Comment on above: Order Comment: No: D o not add to previous draw Performed By: #### 1 0070, 16316, 32794, 99294, 12268, 57782 #### [facility] [address] SPEC GRAV 1.012 Low 1.015-1.02 0 [facility] Comment on above: Order Comment: No: D o not add to previous draw Performed By: #### 1 0070, 09675, 61903, 62232, 59595, 88278 #### [facility] [address] [facility] [address], [facility] BASIC METABOLIC PANELon 07-0 2-2020 Calcium [Mass/Vol] 8.4 mg/dL Low 8.6-10.3 [facility] Comment on above: Order Comment: No: D o not add to previous draw Performed By: #### 1 0070, 46888, 42639, 30802, 62680, 27744 #### [facility] [address] [place] [address], [facility] Chloride [Moles/Vol] 101 mmol/L Normal 98-107 [facility] Comment on above: Order Comment: No: D o not add to previous draw Performed By: #### 1 0070, 38274, 06013, 80911, 45691, 99155 #### [facility] [address] [place] [address], [place] CO2 [Moles/Vol] 29 mmol/L Normal 21-31 [facility] Comment on above: Order Comment: No: D o not add to previous draw Performed By: #### 1 0070, 58392, 48053, 82923, 84012, 39783 #### [facility] [address] [place] [address], [place] Creatinine [Mass/Vol] 0.79 mg/dL Normal 0.60-1.20 [facility] Comment on above: Order Comment: No: D o not add to previous draw Performed By: #### 1 0070, 56637, 13810, 41003, 99994, 10479 #### [facility] [address] [place] [address], [place] GFR/1.73 sq M predicted among blacks MDRD (S/P/Bld) [Vol rate/Area] mL/min/{1.73_m2} Normal >60 [facility] Comment on above: Order Comment: No: D o not add to previous draw Performed By: #### 1 0070, 88679, 15964, 12503, 79834, 87561 #### [facility] [address] [place] [address], [place] GFR/1.73 sq M predicted among non-blacks MDRD (S/P/Bld) [Vol rate/Area] mL/min/{1.73_m2} Normal >60 [facility] Comment on above: Order Comment: No: D o not add to previous draw Performed By: #### 1 0070, 41482, 50262, 96652, 24766, 59264 #### [facility] [address] [place] [address], [facility] Glucose [Mass/Vol] 91 mg/dL Normal 70-100 [facility] Comment on above: Order Comment: No: D o not add to previous draw Performed By: #### 1 0070, 93069, 09825, 64974, 43442, 03583 #### [facility] [address] [place] [id number], [facility] Potassium [Moles/Vol] 3.9 mmol/L Normal 3.5-5.1 [facility] Comment on above: Order Comment: No: D o not add to previous draw Performed By: #### 1 0070, 01577, 33055, 79588, 38686, 25353 #### [facility] [address] [facility] [place] [address], [facility] Sodium [Moles/Vol] 133 mmol/L Low 136-145 [facility] Comment on above: Order Comment: No: D o not add to previous draw Performed By: #### 1 0070, 71828, 65924, 50376, 14137, 03256 #### [facility] [address] [facility] [place] [address], [facility] Urea nitrogen [Mass/Vol] 10 mg/dL Normal 7-25 [facility] Comment on above: Order Comment: No: D o not add to previous draw Performed By: #### 1 0070, 79929, 52162, 16328, 47399, 87911 #### [facility] [address] [place] [id number], [facility] CBC W/DIFFon 04-02-2020 ABS BASOPHILS 0.0 10*3/uL Normal 0.0-0.2 [facility] Comment on above: Order Comment: No: D o not add to previous draw Performed By: #### 1 0070, 16013, 80611, 16707, 76948, 04907 #### [facility] [address] [place] [address], [facility] ABS IMM GRANS 0.0 10*3/uL Normal 0.0-0.2 [facility] Comment on above: Order Comment: No: D o not add to previous draw Performed By: #### 1 0070, 98263, 47238, 94658, 51265, 52977 #### [facility] [address] [place] [address], [facility] ABS NEUTROPHILS 4.5 10*3/uL Normal 1.6-7.6 [facility] Comment on above: Order Comment: No: D o not add to previous draw Performed By: #### 1 0070, 51843, 27877, 03625, 74646, 45940 #### [facility] [address] [place] [address], [facility] Basophils/100 WBC (Bld) 0.2 % Normal 0.0-1.0 [facility] Comment on above: Order Comment: No: D o not add to previous draw Performed By: #### 1 0070, 37433, 62734, 80328, 16040, 81346 #### [facility] [address] [place] [address], [facility] Eosinophils (Bld) [#/Vol] 0.2 10*3/uL Normal 0.0-0.5 [facility] Comment on above: Order Comment: No: D o not add to previous draw Performed By: #### 1 0070, 83065, 80772, 10887, 20316, 52041 #### [facility] [address] [facility] [place] [address], [facility] Eosinophils/100 WBC (Bld) 3.6 % Normal 0.0-6.0 [facility] Comment on above: Order Comment: No: D o not add to previous draw Performed By: #### 1 0070, 81593, 35668, 19317, 59335, 64355 #### [facility] [address] [facility] [place] [address], [facility] Erythrocyte distribution width (RBC) [Ratio] 12.7 % Normal 11.5-15.0 [facility] Comment on above: Order Comment: No: D o not add to previous draw Performed By: #### 1 0070, 57108, 00923, 63903, 92805, 16614 #### [facility] [address] [place] [address], [facility] Hematocrit (Bld) [Volume fraction] 42.9 % Normal 36.0-45.0 [facility] Comment on above: Order Comment: No: D o not add to previous draw Performed By: #### 1 0070, 76292, 68353, 80705, 48005, 38125 #### [facility] [address] [facility] [place] [address], [facility] Hemoglobin (Bld) [Mass/Vol] 13.5 g/dL Normal 12.0-15.0 [facility] Comment on above: Order Comment: No: D o not add to previous draw Performed By: #### 1 0070, 75897, 47542, 08772, 84636, 67277 #### [facility] [address] [place] [address], [facility] IMMATURE GRANS 0.3 % Normal 0.0-1.0 [facility] Comment on above: Order Comment: No: D o not add to previous draw Performed By: #### 1 0070, 59026, 09608, 27041, 47134, 17435 #### [facility] [address] [place] [address], [facility] Lymphocytes (Bld) [#/Vol] 1.1 10*3/uL Low 1.2-4.0 [facility] Comment on above: Order Comment: No: D o not add to previous draw Performed By: #### 1 0070, 54157, 11483, 85118, 15975, 75797 #### [facility] [address] [place] [id number], [facility] Lymphocytes/100 WBC (Bld) 18.0 % Low 20.0-45.0 [facility] Comment on above: Order Comment: No: D o not add to previous draw Performed By: #### 1 0070, 00958, 41017, 96755, 61656, 65105 #### [facility] [address] [place] [address], [facility] MCH (RBC) [Entitic mass] 27.4 pg Normal 27.0-33.0 [facility] Comment on above: Order Comment: No: D o not add to previous draw Performed By: #### 1 0070, 20193, 10905, 10111, 49316, 81407 #### [facility] [address] [facility] [place] [address], [facility] MCHC (RBC) [Mass/Vol] 31.5 g/dL Low 32.0-35.0 [facility] Comment on above: Order Comment: No: D o not add to previous draw Performed By: #### 1 0070, 94862, 51629, 19707, 27985, 84608 #### [facility] [address] [facility] [place] [address], [facility] MCV (RBC) [Entitic vol] 87.0 fL Normal 82.0-98.0 [facility] Comment on above: Order Comment: No: D o not add to previous draw Performed By: #### 1 0070, 05572, 91083, 15893, 79708, 92323 #### [facility] [address] [facility] [address], [facility] Monocytes (Bld) [#/Vol] 0.3 10*3/uL Normal 0.1-1.0 [facility] Comment on above: Order Comment: No: D o not add to previous draw Performed By: #### 1 0070, 22012, 12716, 16045, 96841, 85943 #### [facility] [address] [place] [id number], [facility] MONOS 5.5 % Normal 5.0-12.0 [facility] Comment on above: Order Comment: No: D o not add to previous draw Performed By: #### 1 0070, 84292, 36623, 84264, 08920, 05979 #### [facility] [address] [place] [id number], [facility] Neutrophils/100 WBC (Bld) 72.4 % High 40.0-72.0 [facility] Comment on above: Order Comment: No: D o not add to previous draw Performed By: #### 1 0070, 35770, 22843, 17516, 34240, 24102 #### [facility] [address] [facility] [place] [address], [facility] Nucleated RBC/100 WBC (Bld) [Ratio] 0 % Normal 0-0 [facility] Comment on above: Order Comment: No: D o not add to previous draw Performed By: #### 1 0070, 75553, 97480, 94441, 90962, 36216 #### [facility] [address] [facility] [place] [address], [place] PLAT CNT 264 10*3/uL Normal 150-400 [facility] Comment on above: Order Comment: No: D o not add to previous draw Performed By: #### 1 0070, 42841, 63609, 11454, 83945, 26722 #### [facility] [address] [facility] [place] [address], [facility] RBC (Bld) [#/Vol] 4.93 10*6/uL Normal 3.80-5.00 [facility] Comment on above: Order Comment: No: D o not add to previous draw Performed By: #### 1 0070, 39898, 91411, 60026, 08102, 11021 #### [facility] [address] [place] [address], [place] WBC (Bld) [#/Vol] 6.17 10*3/uL Normal 4.00-10.60 [facility] Comment on above: Order Comment: No: D o not add to previous draw Performed By: #### 1 0070, 80984, 60292, 80418, 93131, 83004 #### [facility] [address] [place] [address], [facility] MAGNESIUM BLOODon 04-02-2020 Magnesium [Mass/Vol] 2.0 mg/dL Normal 1.9-2.7 [facility] Comment on above: Order Comment: No: D o not add to previous draw Performed By: #### 1 0070, 63621, 58380, 19006, 98689, 12255 #### [facility] [address] [place] [address], [facility] PHOSPHORUS BLOODon 0 Phosphate [Mass/Vol] 3.1 mg/dL Normal 2.5-5.0 [facility] Comment on above: Order Comment: No: D o not add to previous draw Performed By: #### 1 0070, 40610, 52817, 88995, 14789, 46563 #### [facility] [address] [place] [address], [facility] POC GLUCOSE LABon 04-02-2020 Glucose [Mass/Vol] 134 mg/dL High 70-100 [facility] Comment on above: Performed By: #### 1 0070, 20904, 35997, 66554, 45886, 83365 #### [facility] [address] [place] [address], [facility] UFH HEPARIN ASSAYon 04-02-20 20 UNFRACTIONATED HEPARIN 0.91 IU/mL Critically high 0.30-0.7 0 [facility] Comment on above: Result Comment: [place] roxaban and Apixaban will interfere with the anti Xa assay used to monitor UFH and LMWH. RESULTS CHECKED AND CALLED. ACCURATELY READ BACK BY LYNN POLANCO RN @ [phone] Performed By: #### 1 0070, 12809, 64900, 02718, 89364, 75890 #### [facility] [address] [place] [address], [facility] ALBUMIN BLOODon 04-01-2020 Albumin [Mass/Vol] 3.0 g/dL Low 3.5-5.7 [facility] Comment on above: Performed By: #### 1 0070, 82529, 85645, 20692, 63605, 22558 #### [facility] [address] [place] [address], [facility] BASIC METABOLIC PANELon Calcium [Mass/Vol] 8.1 mg/dL Low 8.6-10.3 [facility] Comment on above: Order Comment: No: D o not add to previous draw Performed By: #### 1 0070, 46509, 45892, 52069, 26344, 98629 #### [facility] [address] [place] [address], [place] Chloride [Moles/Vol] 105 mmol/L Normal 98-107 [facility] Comment on above: Order Comment: No: D o not add to previous draw Performed By: #### 1 0070, 59352, 52533, 18029, 42854, 87137 #### [facility] [address] [place] [address], [facility] CO2 [Moles/Vol] 26 mmol/L Normal 21-31 [facility] Comment on above: Order Comment: No: D o not add to previous draw Performed By: #### 1 0070, 15839, 75822, 31002, 92359, 12007 #### [facility] [address] [place] [address], [place] Creatinine [Mass/Vol] 0.65 mg/dL Normal 0.60-1.20 [facility] Comment on above: Order Comment: No: D o not add to previous draw Performed By: #### 1 0070, 60087, 63262, 33308, 33771, 30577 #### [facility] [address] [place] [address], [place] GFR/1.73 sq M predicted among blacks MDRD (S/P/Bld) [Vol rate/Area] mL/min/{1.73_m2} Normal >60 [facility] Comment on above: Order Comment: No: D o not add to previous draw Performed By: #### 1 0070, 37184, 76666, 07317, 72293, 40329 #### [facility] [address] [place] [address], [place] GFR/1.73 sq M predicted among non-blacks MDRD (S/P/Bld) [Vol rate/Area] mL/min/{1.73_m2} Normal >60 [facility] Comment on above: Order Comment: No: D o not add to previous draw Performed By: #### 1 0070, 21411, 51334, 78395, 38509, 60407 #### [facility] [address] [place] [address], [place] Glucose [Mass/Vol] 87 mg/dL Normal 70-100 [facility] Comment on above: Order Comment: No: D o not add to previous draw Performed By: #### 1 0070, 80521, 96724, 95063, 93206, 90423 #### [facility] [address] [place] [address], [place] Potassium [Moles/Vol] 4.3 mmol/L Normal 3.5-5.1 [facility] Comment on above: Order Comment: No: D o not add to previous draw Performed By: #### 1 0070, 30390, 30959, 67951, 81907, 00955 #### [facility] [address] [place] [address], [place] Sodium [Moles/Vol] 136 mmol/L Normal 136-145 [facility] Comment on above: Order Comment: No: D o not add to previous draw Performed By: #### 1 0070, 40741, 50778, 11062, 94560, 40480 #### [facility] [address] [place] [address], [place] Urea nitrogen [Mass/Vol] 8 mg/dL Normal 7-25 [facility] Comment on above: Order Comment: No: D o not add to previous draw Performed By: #### 1 0070, 29972, 91656, 63998, 15534, 72758 #### [facility] [address] CBC W/DIFFon 04-01-2020 ABS BASOPHILS 0.0 10*3/uL Normal 0.0-0.2 [facility] Comment on above: Order Comment: No: D o not add to previous draw Performed By: #### 1 0070, 01204, 25737, 77739, 88914, 50622 #### [facility] [address] ABS IMM GRANS 0.0 10*3/uL Normal 0.0-0.2 [facility] Comment on above: Order Comment: No: D o not add to previous draw Performed By: #### 1 0070, 38199, 31447, 13176, 14649, 66280 #### [facility] [address] ABS NEUTROPHILS 3.4 10*3/uL Normal 1.6-7.6 [facility] Comment on above: Order Comment: No: D o not add to previous draw Performed By: #### 1 0070, 08708, 33035, 26581, 70946, 73120 #### [facility] [address] [facility] [address], [facility] Basophils/100 WBC (Bld) 0.2 % Normal 0.0-1.0 [facility] Comment on above: Order Comment: No: D o not add to previous draw Performed By: #### 1 0070, 86663, 21389, 33015, 64110, 41255 #### [facility] [address] [facility] [address], [facility] Eosinophils (Bld) [#/Vol] 0.1 10*3/uL Normal 0.0-0.5 [facility] Comment on above: Order Comment: No: D o not add to previous draw Performed By: #### 1 0070, 14178, 87924, 54642, 62261, 37561 #### [facility] [address] [place] [address], [facility] Eosinophils/100 WBC (Bld) 2.6 % Normal 0.0-6.0 [facility] Comment on above: Order Comment: No: D o not add to previous draw Performed By: #### 1 0070, 96713, 37526, 68214, 95269, 11423 #### [facility] [address] [facility] [place] [address], [facility] Erythrocyte distribution width (RBC) [Ratio] 13.0 % Normal 11.5-15.0 [facility] Comment on above: Order Comment: No: D o not add to previous draw Performed By: #### 1 0070, 22545, 81712, 50894, 75318, 35768 #### [facility] [address] [place] [address], [facility] Hematocrit (Bld) [Volume fraction] 40.9 % Normal 36.0-45.0 [facility] Comment on above: Order Comment: No: D o not add to previous draw Performed By: #### 1 0070, 93190, 01683, 86744, 19387, 56986 #### [facility] [address] [place] [address], [facility] Hemoglobin (Bld) [Mass/Vol] 12.8 g/dL Normal 12.0-15.0 [facility] Comment on above: Order Comment: No: D o not add to previous draw Performed By: #### 1 0070, 01739, 81674, 80510, 63581, 64645 #### [facility] [address] [place] [address], [facility] IMMATURE GRANS 0.6 % Normal 0.0-1.0 [facility] Comment on above: Order Comment: No: D o not add to previous draw Performed By: #### 1 0070, 96690, 54882, 13143, 35913, 26588 #### [facility] [address] [facility] [place] [address], [facility] Lymphocytes (Bld) [#/Vol] 1.2 10*3/uL Normal 1.2-4.0 [facility] Comment on above: Order Comment: No: D o not add to previous draw Performed By: #### 1 0070, 57051, 73176, 41200, 24412, 44432 #### [facility] [address] [facility] [place] [address], [facility] Lymphocytes/100 WBC (Bld) 23.7 % Normal 20.0-45.0 [facility] Comment on above: Order Comment: No: D o not add to previous draw Performed By: #### 1 0070, 19409, 20185, 15261, 23052, 31137 #### [facility] [address] [place] [address], [facility] MCH (RBC) [Entitic mass] 27.4 pg Normal 27.0-33.0 [facility] Comment on above: Order Comment: No: D o not add to previous draw Performed By: #### 1 0070, 91785, 83204, 68059, 92285, 41100 #### [facility] [address] [place] [address], [facility] MCHC (RBC) [Mass/Vol] 31.3 g/dL Low 32.0-35.0 [facility] Comment on above: Order Comment: No: D o not add to previous draw Performed By: #### 1 0070, 98944, 29249, 34151, 47930, 89192 #### [facility] [address] [place] [id number], [facility] MCV (RBC) [Entitic vol] 87.6 fL Normal 82.0-98.0 [facility] Comment on above: Order Comment: No: D o not add to previous draw Performed By: #### 1 0070, 66064, 96599, 94535, 04816, 86775 #### [facility] [address] Monocytes (Bld) [#/Vol] 0.3 10*3/uL Normal 0.1-1.0 [facility] Comment on above: Order Comment: No: D o not add to previous draw Performed By: #### 1 0070, 52953, 79465, 50509, 39295, 52782 #### [facility] [address] MONOS 5.4 % Normal 5.0-12.0 [facility] Comment on above: Order Comment: No: D o not add to previous draw Performed By: #### 1 0070, 40580, 01451, 84659, 52063, 72798 #### [facility] [address] Neutrophils/100 WBC (Bld) 67.5 % Normal 40.0-72.0 [facility] Comment on above: Order Comment: No: D o not add to previous draw Performed By: #### 1 0070, 23913, 85877, 96573, 94591, 20950 #### [facility] [address] [place] [address], [facility] Nucleated RBC/100 WBC (Bld) [Ratio] 0 % Normal 0-0 [facility] Comment on above: Order Comment: No: D o not add to previous draw Performed By: #### 1 0070, 13278, 31194, 97076, 97474, 52737 #### [facility] [address] [place] [address], [facility] PLAT CNT 237 10*3/uL Normal 150-400 [facility] Comment on above: Order Comment: No: D o not add to previous draw Performed By: #### 1 0070, 44061, 01459, 47642, 99859, 95032 #### [facility] [address] [facility] [place] [address], [facility] RBC (Bld) [#/Vol] 4.67 10*6/uL Normal 3.80-5.00 [facility] Comment on above: Order Comment: No: D o not add to previous draw Performed By: #### 1 0070, 80998, 78548, 41371, 71962, 96097 #### [facility] [address] [facility] [place] [address], [facility] WBC (Bld) [#/Vol] 4.98 10*3/uL Normal 4.00-10.60 [facility] Comment on above: Order Comment: No: D o not add to previous draw Performed By: #### 1 0070, 32365, 23125, 64124, 25263, 99067 #### [facility] [address] [place], [place] [id number] [place] [address] CHEST AND LATERALon 04-01-20 CHEST AND LATERAL [facility] Department of Radiology [address] [place], [place] [address] Patient Name: EMIGDIO APODACA : 1965 Sex: F Age: Race: White Pt. Location: [id number] Patient Status: I Ordered Date: 04/01/2020 7:00:00 [...] reports Electronically signed: Shari Salcedo. Transcribed by: [email or web address], User Resident: ANNE VEGA Electronically Signed by: SHARI SALCEDO @ 04/01/2020 10:12 AM I personally read this/these film(s) with this resident Normal [facility] Comment on above: Order Comment: No: D o not add to previous draw MAGNESIUM BLOODon 04-01-2020 Magnesium [Mass/Vol] 2.1 mg/dL Normal 1.9-2.7 [facility] Comment on above: Order Comment: No: D o not add to previous draw Performed By: #### 1 0070, 59718, 72885, 46107, 82204, 31081 #### [facility] [address] [place] [address], [facility] APTTon 03-31-2020 aPTT Coag (Bld) [Time] 28.3 s Normal 25.0-35.0 Th e [facility] Comment on above: Order Comment: No: [...] THIS PURPOSE. Performed By: #### 1 0070, 03098, 90832, 03659, 54683, 90942 #### [facility] [address] [place] [address], [facility] BASIC METABOLIC PANELon 06-3 Calcium [Mass/Vol] 7.8 mg/dL Low 8.6-10.3 [facility] Comment on above: Order Comment: No: D o not add to previous draw Performed By: #### 1 0070, 44385, 02911, 73333, 16141, 95580 #### [facility] [address] [place] [address], [facility] Chloride [Moles/Vol] 108 mmol/L High 98-107 [facility] Comment on above: Order Comment: No: D o not add to previous draw Performed By: #### 1 0070, 14491, 80203, 18521, 71412, 82970 #### [facility] [address] [place] [address], [facility] CO2 [Moles/Vol] 26 mmol/L Normal 21-31 [facility] Comment on above: Order Comment: No: D o not add to previous draw Performed By: #### 1 0070, 28897, 74334, 86653, 84118, 15181 #### [facility] [address] [place] [address], [facility] Creatinine [Mass/Vol] 0.76 mg/dL Normal 0.60-1.20 [facility] Comment on above: Order Comment: No: D o not add to previous draw Performed By: #### 1 0070, 16888, 80084, 47342, 60979, 72070 #### [facility] [address] [place] [address], [place] GFR/1.73 sq M predicted among blacks MDRD (S/P/Bld) [Vol rate/Area] mL/min/{1.73_m2} Normal >60 [facility] Comment on above: Order Comment: No: D o not add to previous draw Performed By: #### 1 0070, 47796, 97878, 63487, 13444, 00727 #### [facility] [address] [place] [address], [facility] GFR/1.73 sq M predicted among non-blacks MDRD (S/P/Bld) [Vol rate/Area] mL/min/{1.73_m2} Normal >60 [facility] Comment on above: Order Comment: No: D o not add to previous draw Performed By: #### 1 0070, 06816, 47148, 66743, 87362, 91896 #### [facility] [address] [place] [address], [place] Glucose [Mass/Vol] 97 mg/dL Normal 70-100 [facility] Comment on above: Order Comment: No: D o not add to previous draw Performed By: #### 1 0070, 55940, 44373, 89006, 92389, 08947 #### [facility] [address] [place] [address], [place] Potassium [Moles/Vol] 3.2 mmol/L Low 3.5-5.1 [facility] Comment on above: Order Comment: No: D o not add to previous draw Performed By: #### 1 0070, 92251, 02771, 43128, 68024, 34362 #### [facility] [address] [place] [address], [place] Sodium [Moles/Vol] 140 mmol/L Normal 136-145 [facility] Comment on above: Order Comment: No: D o not add to previous draw Performed By: #### 1 0070, 03905, 55546, 07115, 34474, 03745 #### [facility] [address] Urea nitrogen [Mass/Vol] 15 mg/dL Normal 7-25 [facility] Comment on above: Order Comment: No: D o not add to previous draw Performed By: #### 1 0070, 51051, 12776, 76494, 95990, 51443 #### [facility] [address] CBC W/DIFFon 03-31-2020 ABS BASOPHILS 0.0 10*3/uL Normal 0.0-0.2 [facility] Comment on above: Order Comment: No: D o not add to previous draw Performed By: #### 1 0070, 00432, 45520, 50779, 48340, 82446 #### [facility] [address] ABS IMM GRANS 0.0 10*3/uL Normal 0.0-0.2 [facility] Comment on above: Order Comment: No: D o not add to previous draw Performed By: #### 1 0070, 47351, 51015, 78929, 54985, 37962 #### [facility] [address] ABS NEUTROPHILS 3.2 10*3/uL Normal 1.6-7.6 [facility] Comment on above: Order Comment: No: D o not add to previous draw Performed By: #### 1 0070, 67366, 56318, 83348, 42813, 53990 #### [facility] [address] [place] [address], [facility] Basophils/100 WBC (Bld) 0.2 % Normal 0.0-1.0 [facility] Comment on above: Order Comment: No: D o not add to previous draw Performed By: #### 1 0070, 07396, 42389, 10803, 57558, 92304 #### [facility] [address] [place] [address], [facility] Eosinophils (Bld) [#/Vol] 0.0 10*3/uL Normal 0.0-0.5 [facility] Comment on above: Order Comment: No: D o not add to previous draw Performed By: #### 1 0070, 19520, 75286, 69190, 38756, 79591 #### [facility] [address] [place] [address], [facility] Eosinophils/100 WBC (Bld) 0.4 % Normal 0.0-6.0 [facility] Comment on above: Order Comment: No: D o not add to previous draw Performed By: #### 1 0070, 04682, 57140, 33241, 39166, 61813 #### [facility] [address] Erythrocyte distribution width (RBC) [Ratio] 13.0 % Normal 11.5-15.0 [facility] Comment on above: Order Comment: No: D o not add to previous draw Performed By: #### 1 0070, 84942, 13248, 56872, 22791, 82127 #### [facility] [address] [place] [address], [facility] Hematocrit (Bld) [Volume fraction] 34.4 % Low 36.0-45.0 [facility] Comment on above: Order Comment: No: D o not add to previous draw Performed By: #### 1 0070, 30130, 42133, 67542, 48740, 99025 #### [facility] [address] [place] [address], [facility] Hemoglobin (Bld) [Mass/Vol] 10.8 g/dL Low 12.0-15.0 [facility] Comment on above: Order Comment: No: D o not add to previous draw Performed By: #### 1 0070, 63258, 12981, 80563, 66730, 57032 #### [facility] [address] [facility] [address], [facility] IMMATURE GRANS 0.4 % Normal 0.0-1.0 [facility] Comment on above: Order Comment: No: D o not add to previous draw Performed By: #### 1 0070, 18466, 03462, 46731, 18521, 62326 #### [facility] [address] [place] [address], [facility] Lymphocytes (Bld) [#/Vol] 1.2 10*3/uL Normal 1.2-4.0 [facility] Comment on above: Order Comment: No: D o not add to previous draw Performed By: #### 1 0070, 30911, 63241, 59118, 28890, 30946 #### [facility] [address] [place] [address], [facility] Lymphocytes/100 WBC (Bld) 25.7 % Normal 20.0-45.0 [facility] Comment on above: Order Comment: No: D o not add to previous draw Performed By: #### 1 0070, 34668, 16749, 23331, 80046, 13881 #### [facility] [address] [place] [address], [facility] MCH (RBC) [Entitic mass] 27.5 pg Normal 27.0-33.0 [facility] Comment on above: Order Comment: No: D o not add to previous draw Performed By: #### 1 0070, 08416, 03811, 04973, 37148, 02035 #### [facility] [address] [place] [address], [facility] MCHC (RBC) [Mass/Vol] 31.4 g/dL Low 32.0-35.0 [facility] Comment on above: Order Comment: No: D o not add to previous draw Performed By: #### 1 0070, 92335, 74763, 41833, 65118, 52798 #### [facility] [address] [place] [address], [facility] MCV (RBC) [Entitic vol] 87.5 fL Normal 82.0-98.0 [facility] Comment on above: Order Comment: No: D o not add to previous draw Performed By: #### 1 0070, 13230, 30002, 42954, 58070, 55697 #### [facility] [address] [place] [address], [facility] Monocytes (Bld) [#/Vol] 0.3 10*3/uL Normal 0.1-1.0 [facility] Comment on above: Order Comment: No: D o not add to previous draw Performed By: #### 1 0070, 38013, 41886, 42914, 72504, 38650 #### [facility] [address] [facility] [place] [address], [facility] MONOS 6.2 % Normal 5.0-12.0 [facility] Comment on above: Order Comment: No: D o not add to previous draw Performed By: #### 1 0070, 91841, 29874, 76811, 27286, 63407 #### [facility] [address] [facility] [place] [address], [facility] Neutrophils/100 WBC (Bld) 67.1 % Normal 40.0-72.0 [facility] Comment on above: Order Comment: No: D o not add to previous draw Performed By: #### 1 0070, 89236, 51013, 41111, 77431, 28856 #### [facility] [address] [place] [id number], [facility] Nucleated RBC/100 WBC (Bld) [Ratio] 0 % Normal 0-0 [facility] Comment on above: Order Comment: No: D o not add to previous draw Performed By: #### 1 0070, 21266, 28858, 88096, 77198, 04983 #### [facility] [address] [place] [address], [facility] PLAT CNT 210 10*3/uL Normal 150-400 [facility] Comment on above: Order Comment: No: D o not add to previous draw Performed By: #### 1 0070, 88087, 14532, 13506, 24900, 41118 #### [facility] [address] [facility] [place] [address], [facility] RBC (Bld) [#/Vol] 3.93 10*6/uL Normal 3.80-5.00 [facility] Comment on above: Order Comment: No: D o not add to previous draw Performed By: #### 1 0070, 03768, 74985, 10409, 18818, 07017 #### [facility] [address] [facility] [address], [facility] WBC (Bld) [#/Vol] 4.71 10*3/uL Normal 4.00-10.60 [facility] Comment on above: Order Comment: No: D o not add to previous draw Performed By: #### 1 0070, 44292, 12186, 13569, 77029, 44923 #### [facility] [address] [facility] [address] Cardiovascular Lab Reporton 03-31-2020 Cardiovascular Lab Report [facility] Patient Name: [facility] S MR #: [id number] Department of Physician: Rebecca Weaver M.D. Medicine Service Date: 03/31/2020 Division of Birthdate: 1965 Cardiology Room #: 3AB [id number] Adult Cardiovascular Services [place] [address] Cardiovascular Laboratory Report INDICATIONS FOR PACEMAKER PLACEMENT: [...] silk suture. They were connected to a [employer] [place] dual-chamber pacing system. This was placed [...] Weaver M.D. Date Trans: 03/31/2020 03:35 P/mmo [id number] cc: Luis Armando Hines M.D. Heart Failure/ Transplant Mailstop [address] [place] [address] Normal [facility] MAGNESIUM BLOODon 03-31-2020 Magnesium [Mass/Vol] 1.8 mg/dL Low 1.9-2.7 [facility] Comment on above: Order Comment: No: D o not add to previous draw Performed By: #### 1 0070, 83524, 37594, 16584, 74935, 86645 #### [facility] [address] PHOSPHORUS BLOODon 0 Phosphate [Mass/Vol] 2.7 mg/dL Normal 2.5-5.0 [facility] Comment on above: Order Comment: No: D o not add to previous draw Performed By: #### 1 0070, 65855, 04106, 05033, 16332, 79149 #### [facility] [address] PROTHROMBIN TIMEon 0 INR Coag (PPP) [Relative time] 1.11 {INR} Normal 0.91-1.16 [facility] Comment on above: Order Comment: No: [...] CHEST 1995;[id number]. Performed By: #### 1 0070, 81470, 56624, 63728, 32513, 74620 #### [facility] [address] [facility]. [address] PT Coag (PPP) [Time] 14.3 s Normal 12.3-14.8 [facility] Comment on above: Order Comment: No: D o not add to previous draw Result Comment: ALL RESULTS MUST BE INTERPRETED WITH RESPECT TO BLOOD DRAWING ARTIFACT OR DILUTION ERROR OF ANTICOAGULANT AT THE TIME OF SAMPLING. Performed By: #### 1 0070, 62461, 68010, 25181, 62495, 12321 #### [facility] [address] [facility]. [address] *SARS-CoV-2 COVID-19on 03-30 [id number] Not Detected Normal Not Detected [facility] Comment on above: Order Comment: No: D o not add to previous draw Performed By: #### 1 0070, 76966, 11660, 33403, 27033, 34676 #### [facility] [address] APTTon 03-30-2020 aPTT Coag (Bld) [Time] 24.9 s Low 25.0-35.0 Th e [facility] Comment on above: Order Comment: No: [...] THIS PURPOSE. Performed By: #### 5 7307, 69669 #### [facility] [address] [place] [address], [facility] BASIC METABOLIC PANELon 06- Calcium [Mass/Vol] 8.9 mg/dL Normal 8.6-10.3 [facility] Comment on above: Order Comment: No: D o not add to previous draw Performed By: #### 1 0070, 29691, 56577, 19106, 62878, 13979 #### [facility] [address] [place] [address], [facility] Chloride [Moles/Vol] 110 mmol/L High 98-107 [facility] Comment on above: Order Comment: No: D o not add to previous draw Performed By: #### 1 0070, 84274, 78666, 80672, 73488, 12730 #### [facility] [address] [place] [address], [facility] CO2 [Moles/Vol] 26 mmol/L Normal 21-31 [facility] Comment on above: Order Comment: No: D o not add to previous draw Performed By: #### 1 0070, 72689, 54844, 62565, 42456, 27141 #### [facility] [address] [place] [address], [facility] Creatinine [Mass/Vol] 0.86 mg/dL Normal 0.60-1.20 [facility] Comment on above: Order Comment: No: D o not add to previous draw Performed By: #### 1 0070, 80814, 35412, 64664, 31727, 17064 #### [facility] [address] [place] [address], [facility] GFR/1.73 sq M predicted among blacks MDRD (S/P/Bld) [Vol rate/Area] mL/min/{1.73_m2} Normal >60 [facility] Comment on above: Order Comment: No: D o not add to previous draw Performed By: #### 1 0070, 21428, 68627, 95416, 72012, 99396 #### [facility] [address] [place] [address], [place] GFR/1.73 sq M predicted among non-blacks MDRD (S/P/Bld) [Vol rate/Area] mL/min/{1.73_m2} Normal >60 [facility] Comment on above: Order Comment: No: D o not add to previous draw Performed By: #### 1 0070, 64661, 39100, 78692, 28349, 85411 #### [facility] [address] [place] [address], [place] Glucose [Mass/Vol] 119 mg/dL High 70-100 [facility] Comment on above: Order Comment: No: D o not add to previous draw Performed By: #### 1 0070, 93454, 27900, 96927, 66255, 35816 #### [facility] [address] [place] [address], [place] Potassium [Moles/Vol] 3.5 mmol/L Normal 3.5-5.1 [facility] Comment on above: Order Comment: No: D o not add to previous draw Performed By: #### 1 0070, 18683, 79825, 16894, 31455, 12353 #### [facility] [address] [place] [address], [place] Sodium [Moles/Vol] 142 mmol/L Normal 136-145 [facility] Comment on above: Order Comment: No: D o not add to previous draw Performed By: #### 1 0070, 11347, 09430, 77925, 80049, 41608 #### [facility] [address] [place] [address], [place] Urea nitrogen [Mass/Vol] 13 mg/dL Normal 7-25 [facility] Comment on above: Order Comment: No: D o not add to previous draw Performed By: #### 1 0070, 30640, 77397, 17662, 05945, 95386 #### [facility] [address] CBC W/DIFFon 03-30-2020 ABS BASOPHILS 0.0 10*3/uL Normal 0.0-0.2 [facility] Comment on above: Performed By: #### 5 0103 #### [facility] [address] ABS IMM GRANS 0.0 10*3/uL Normal 0.0-0.2 [facility] Comment on above: Performed By: #### 5 0103 #### [facility] [address] ABS NEUTROPHILS 5.7 10*3/uL Normal 1.6-7.6 [facility] Comment on above: Performed By: #### 5 0103 #### [facility] [address] Basophils/100 WBC (Bld) 0.0 % Normal 0.0-1.0 [facility] Comment on above: Performed By: #### 5 0103 #### [facility] [address] [place] [address], [facility] Eosinophils (Bld) [#/Vol] 0.0 10*3/uL Normal 0.0-0.5 [facility] Comment on above: Performed By: #### 5 0103 #### [facility] [address] [place] [address], [facility] Eosinophils/100 WBC (Bld) 0.0 % Normal 0.0-6.0 [facility] Comment on above: Performed By: #### 5 0103 #### [facility] [address] Erythrocyte distribution width (RBC) [Ratio] 12.9 % Normal 11.5-15.0 [facility] Comment on above: Performed By: #### 5 0103 #### [facility] [address] [facility] [address] Hematocrit (Bld) [Volume fraction] 36.1 % Normal 36.0-45.0 [facility] Comment on above: Performed By: #### 0103 #### [facility] [address] Hemoglobin (Bld) [Mass/Vol] 11.5 g/dL Low 12.0-15.0 [facility] Comment on above: Performed By: #### 3 #### [facility] [address] IMMATURE GRANS 0.5 % Normal 0.0-1.0 [facility] Comment on above: Performed By: #### 3 #### [facility] [address] Lymphocytes (Bld) [#/Vol] 0.6 10*3/uL Low 1.2-4.0 [facility] Comment on above: Performed By: #### 5 3 #### [facility] [address] Lymphocytes/100 WBC (Bld) 9.3 % Low 20.0-45.0 [facility] Comment on above: Performed By: #### 5 0103 #### [facility] [address] [place] [address], [facility] MCH (RBC) [Entitic mass] 27.4 pg Normal 27.0-33.0 [facility] Comment on above: Performed By: #### 3 #### [facility] [address] [place] [address], [place] MCHC (RBC) [Mass/Vol] 31.9 g/dL Low 32.0-35.0 [facility] Comment on above: Performed By: #### 5 0103 #### [facility] [address] [place] [address], [facility] MCV (RBC) [Entitic vol] 86.0 fL Normal 82.0-98.0 [facility] Comment on above: Performed By: #### 5 0103 #### [facility] [address] [place] [address], [facility] Monocytes (Bld) [#/Vol] 0.2 10*3/uL Normal 0.1-1.0 [facility] Comment on above: Performed By: #### 5 0103 #### [facility] [address] [place] [address], [facility] MONOS 2.5 % Low 5.0-12.0 [facility] Comment on above: Performed By: #### 5 0103 #### [facility] [address] [place] [address], [facility] Neutrophils/100 WBC (Bld) 87.7 % High 40.0-72.0 [facility] Comment on above: Performed By: #### 5 3 #### [facility] [address] [facility] [address], [facility] Nucleated RBC/100 WBC (Bld) [Ratio] 0 % Normal 0-0 [facility] Comment on above: Performed By: #### 5 3 #### [facility] [address] [facility] [address], [facility] PLAT CNT 261 10*3/uL Normal 150-400 [facility] Comment on above: Performed By: #### 5 3 #### [facility] [address] [facility] [place] [address], [facility] RBC (Bld) [#/Vol] 4.20 10*6/uL Normal 3.80-5.00 [facility] Comment on above: Performed By: #### 5 0103 #### [facility] [address] WBC (Bld) [#/Vol] 6.47 10*3/uL Normal 4.00-10.60 [facility] Comment on above: Performed By: #### 5 0103 #### [facility] [address] FREE T4on 03-30-2020 Free T4 [Mass/Vol] 1.48 ng/dL Normal 0.71-1.85 [facility] Comment on above: Performed By: #### 1 0070, 35429, 93213, 00975, 92829, 00521 #### [facility] [address] MAGNESIUM BLOODon 03-30-2020 Magnesium [Mass/Vol] 2.0 mg/dL Normal 1.9-2.7 [facility] Comment on above: Order Comment: No: D o not add to previous draw Performed By: #### 1 0070, 49660, 88536, 96245, 11182, 11749 #### [facility] [address] PHOSPHORUS BLOODon 0 Phosphate [Mass/Vol] 2.8 mg/dL Normal 2.5-5.0 [facility] Comment on above: Order Comment: No: D o not add to previous draw Performed By: #### 1 0070, 57307, 38179, 96320, 44986, 30508 #### [facility] [address] PROTHROMBIN TIMEon 0 INR Coag (PPP) [Relative time] 1.21 {INR} High 0.91-1.16 [facility] Comment on above: Order Comment: No: [...] CHEST 1995;[id number]. Performed By: #### 5 7307, 75854 #### [facility] [address] [facility] PT Coag (PPP) [Time] 15.4 s High 12.3-14.8 [facility] Comment on above: Order Comment: No: D o not add to previous draw Result Comment: ALL RESULTS MUST BE INTERPRETED WITH RESPECT TO BLOOD DRAWING ARTIFACT OR DILUTION ERROR OF ANTICOAGULANT AT THE TIME OF SAMPLING. Performed By: #### 5 7307, 46633 #### [facility] [address] [facility] [address] TROPONIN-Ion 03-30-2020 Troponin I.cardiac [Mass/Vol] 0.02 ng/mL Normal 0.00-0.04 [facility] Comment on above: Order Comment: No: D o not add to previous draw Result Comment: REFE RENCE RANGES: 0.00 - 0.04 ng/ml NORMAL 0.05 - 0.50 ng/ml INDETERMINATE > 0.50 ng/ml CONSISTENT WITH AN M.I. Performed By: #### 1 0070, 20430, 91311, 58803, 43415, 36247 #### [facility] [address] Troponin I.cardiac [Mass/Vol] 0.04 ng/mL Normal 0.00-0.04 [facility] Comment on above: Order Comment: No: D o not add to previous draw Result Comment: REFE RENCE RANGES: 0.00 - 0.04 ng/ml NORMAL 0.05 - 0.50 ng/ml INDETERMINATE > 0.50 ng/ml CONSISTENT WITH AN M.I. Performed By: #### 3 5200 #### [facility] [address] [place] [address], [facility] Troponin I.cardiac [Mass/Vol] 0.04 ng/mL Normal 0.00-0.04 [facility] Comment on above: Order Comment: No: D o not add to previous draw Result Comment: REFE RENCE RANGES: 0.00 - 0.04 ng/ml NORMAL 0.05 - 0.50 ng/ml INDETERMINATE > 0.50 ng/ml CONSISTENT WITH AN M.I. Performed By: #### 1 0070, 40638, 67743, 15418, 79481, 01222 #### [facility] [address] TSH3 WITH REFLEX FT4on 03-30 TSH 3RD GENERATION 0.02 uIU/mL Low 0.34-5.60 [facility] Comment on above: Performed By: #### 1 0070, 29153, 89374, 61499, 47497, 96402 #### [facility] [address] [place], [place] [id number] [place] [address] Vital Signs Date Time Vital Sign Value Performing Clinician Facility 05-05-2025 14:00-0400 Body height 152.4 cm Naseem Carter OPERATIONAL RISK CONSULTANT Work Phone: [facility] 05-05-2025 14:00-0400 Body mass index (BMI) [Ratio] 19.14 kg/m2 Naseem Carter NP Work Phone: [facility] 05-05-2025 14:00-0400 Body weight 44.45 kg Naseem Carter NP Work Phone: [facility] 02-17-2025 13:40-0400 Body height 152.4 cm Naseem Carter OPERATIONAL RISK CONSULTANT Work Phone: [facility] 02-17-2025 13:40-0400 Body mass index (BMI) [Ratio] 20.31 kg/m2 Naseem Carter OPERATIONAL RISK CONSULTANT Work Phone: [facility] 02-17-2025 13:40-0400 Body weight 47.17 kg Naseem Carter OPERATIONAL RISK CONSULTANT Work Phone: [facility] 12-04-2024 07:30-0500 Body temperature 97.8 [degF] Tony Amaya MD Work Phone: [facility] 12-04-2024 07:30-0500 Diastolic blood pressure 77 mm[Hg] Tony Amaya MD Work Phone: [facility] 12-04-2024 07:30-0500 Heart rate 88 /min Tony Amaya MD Work Phone: [facility] 12-04-2024 07:30-0500 Respiratory rate 18 /min Tony Amaya MD Work Phone: [facility] 12-04-2024 07:30-0500 SaO2% (BldA) [Mass fraction] 97 % Tony Amaya MD Work Phone: [facility] 12-04-2024 07:30-0500 Systolic blood pressure 120 mm[Hg] Tony Amaya MD Work Phone: [facility] 12-02-2024 14:18-0500 Body height 152.4 cm Tony Amaya MD Work Phone: [facility] 12-02-2024 08:53-0500 Body weight 44.62 kg Toyn Amaay MD Work Phone: [facility] 06-13-2024 12:13-0400 Body height 152.3 cm Zoila Monae MD Work Phone: [facility] 06-13-2024 12:13-0400 Body mass index (BMI) [Ratio] 19.98 kg/m2 Zoila Monae MD Work Phone: [facility] 06-13-2024 12:13-0400 Body weight 46.35 kg Zoila Monae MD Work Phone: [facility] 06-13-2024 12:13-0400 Diastolic blood pressure 77 mm[Hg] Zoila Monae MD Work Phone: [facility] 06-13-2024 12:13-0400 Heart rate 74 /min Zoila Monae MD Work Phone: [facility] 06-13-2024 12:13-0400 Systolic blood pressure 107 mm[Hg] Zoila Monae MD Work Phone: [facility] 03-06-2024 13:46-0400 Body height 153.5 cm Zoila Monae MD Work Phone: [facility] 03-06-2024 13:46-0400 Body mass index (BMI) [Ratio] 19.1 kg/m2 Zoila Monae MD Work Phone: [facility] 03-06-2024 13:46-0400 Body temperature 97.2 [degF] Zoila Monae MD Work Phone: [facility] 03-06-2024 13:46-0400 Body weight 45 kg Zoila Monae MD Work Phone: [facility] 03-06-2024 13:46-0400 Diastolic blood pressure 68 mm[Hg] Zoila Monae MD Work Phone: [facility] 03-06-2024 13:46-0400 Heart rate 106 /min Zoila Monae MD Work Phone: [facility] 03-06-2024 13:46-0400 Systolic blood pressure 101 mm[Hg] Zoila Monae MD Work Phone: [facility] 08-12-2022 15:32-0500 Body temperature 98.1 [degF] MD Tony Amaya Work Phone: [facility] 08-12-2022 15:32-0500 Diastolic blood pressure 69 mm[Hg] MD Tony Amaya Work Phone: [facility] 08-12-2022 15:32-0500 Heart rate 78 /min MD Tony Amaya Work Phone: [facility] 08-12-2022 15:32-0500 Respiratory rate 16 /min MD Tony Amaya Work Phone: [facility] 08-12-2022 15:32-0500 SaO2% (BldA) [Mass fraction] 94 % MD Tony Amaya Work Phone: [facility] 08-12-2022 15:32-0500 Systolic blood pressure 129 mm[Hg] MD Tony Amaya Work Phone: [facility] 08-12-2022 11:00-0500 Inhaled oxygen flow rate 3 L/min MD Tony Amaya Work Phone: [facility] 08-11-2022 12:39-0500 Body height 152.4 cm MD Tony Amaya Work Phone: [facility] 08-11-2022 06:00-0500 Body weight 44.9 kg MD Tony Amaya Work Phone: [facility] 08-10-2022 15:03-0500 Body mass index (BMI) [Ratio] 19.1 kg/m2 MD Tony Amaya Work Phone: [facility] 08-03-2022 14:27-0400 Body weight 0 kg MD Toyn Amaya Work Phone: [facility] Encounters Encounter Date Encounter Type Care Provider Facility Start: 07-15-2025 Emergency department patient visit RULA RUIZ [facility] Start: 07-15-2025 End: 07-17-2025 Evaluation and management of inpatient JESSICA ZHAOABIMBOLA [facility] Start: 05-21-2025 End: 05-21-2025 Refill Naseem Carter OPERATIONAL RISK CONSULTANT Work Phone: [facility] Comment on above: Post-op pain (Primar y Dx) Start: 05-13-2025 ambulatory Tony Amaya Facility: [facility] Start: 05-05-2025 End: 05-05-2025 Bamboo flowsheet Naseem Carter OPERATIONAL RISK CONSULTANT Work Phone: [facility] Start: 05-05-2025 End: 05-05-2025 Bamboo flowsheet Naseem Carter OPERATIONAL RISK CONSULTANT Work Phone: [facility] Start: 05-05-2025 End: 05-05-2025 Patient encounter procedure Naseem Carter OPERATIONAL RISK CONSULTANT Work Phone: [facility] Comment on above: Pre-op evaluation (P rimary Dx) Start: 05-05-2025 End: 05-05-2025 Preprocedural examination done Naseem Carter OPERATIONAL RISK CONSULTANT Work Phone: [facility] Work Phone: Start: 05-05-2025 End: 05-05-2025 ambulatory NASEEM CARTER Not Available Start: 03-28-2025 End: 03-28-2025 ambulatory DARRYL [facility] Start: 02-17-2025 End: 02-17-2025 Bamboo flowsheet Naseem Carter OPERATIONAL RISK CONSULTANT Work Phone: [facility] Start: 02-17-2025 End: 02-17-2025 Bamboo flowsheet Naseem Carter OPERATIONAL RISK CONSULTANT Work Phone: [facility] Start: 02-17-2025 End: 02-17-2025 ambulatory NASEEM CARTER Not Available Start: 02-17-2025 End: 02-17-2025 Patient encounter procedure Naseem Carter OPERATIONAL RISK CONSULTANT Work Phone: [facility] Comment on above: Preop examination (P rimary Dx) Start: 02-17-2025 End: 02-17-2025 Preprocedural examination done Naseem Carter OPERATIONAL RISK CONSULTANT Work Phone: [facility] Work Phone: Start: 02-14-2025 ambulatory [facility] Start: 02-10-2025 End: 02-14-2025 Telephone encounter JrChen Luis Armando Alonzo Zahida DO Work Phone: [facility] Start: 01-29-2025 ambulatory [facility] Start: 01-08-2025 End: 01-08-2025 Bamboo flowsheet JrChen Alonzo Stepanic DO Work Phone: [facility] Start: 01-08-2025 End: 01-08-2025 Bamboo flowsheet Jr. Luis Armando Alonzo Stepanic DO Work Phone: [facility] Start: 01-08-2025 End: 01-08-2025 ambulatory LUIS ARMANDO LINDER Not Available Start: 01-08-2025 End: 01-08-2025 Office outpatient visit 25 minutes JrChen Alonzo Stepanic DO Work Phone: [facility] Comment on above: Carpal tunnel syndro me on left (Primary Dx); Pain in left hand Start: 12-10-2024 End: 12-10-2024 ambulatory [facility] Start: 12-02-2024 Non-patient / Non-visit Perez Amaya MD Work Phone: [facility] Work Phone: Start: 12-01-2024 End: 12-04-2024 Evaluation and management of inpatient Tony Amaya MD Work Phone: [facility] [place] [address] Work Phone: Start: 12-01-2024 Registered Recurring Tony berry MD Work Phone: [facility] Start: 11-29-2024 End: 11-29-2024 ambulatory DARRYL GOODE [facility] Start: 11-28-2024 End: 11-28-2024 Patient encounter procedure Monika Vargas DO Work Phone: [facility] Comment on above: Numbness and tinglin g in left hand Start: 11-28-2024 End: 11-28-2024 ambulatory FREDDEVEN SVETLANA Not Available Start: 11-26-2024 End: 11-26-2024 ambulatory Tony Amaya MD Work Phone: [facility] Work Phone: Start: 11-26-2024 End: 11-26-2024 Departed Referred oTny Amaya MD Work Phone: [facility] Start: 11-14-2024 Registered Recurring Tony berry MD Work Phone: [facility] Start: 11-11-2024 End: 11-11-2024 Bamboo flowsheet Zulema Smith Apllukas OPERATIONAL RISK CONSULTANT Work Phone: [facility] Start: 11-11-2024 End: 11-11-2024 Bamboo flowsheet Zulema Smith Apllukas OPERATIONAL RISK CONSULTANT Work Phone: [facility] Start: 11-11-2024 End: 11-11-2024 ambulatory ZULEMA Smith APLING Not Available Start: 11-11-2024 End: 11-11-2024 Office outpatient visit 15 minutes Zulema Mackay OPERATIONAL RISK CONSULTANT Work Phone: [facility] Comment on [...] End: 10-07-2024 Bamboo flowsheet Zulema Smith Apling OPERATIONAL RISK CONSULTANT Work Phone: [facility] Start: 10-07-2024 End: 10-07-2024 Bamboo flowsheet Zulema B Apling OPERATIONAL RISK CONSULTANT Work Phone: [facility] Start: 10-07-2024 End: 10-07-2024 ambulatory ZULEMA Smith APLING Not Available Start: 10-07-2024 End: 10-07-2024 Office outpatient visit 10 minutes Zulema Nicholsing OPERATIONAL RISK CONSULTANT Work Phone: [facility] Comment on above: Closed nondisplaced fracture of base of fifth metacarpal bone of left hand with routine healing, subsequent encounter (Primary Dx); Closed nondisplaced fracture of right patella with routine healing, unspecified fracture morphology, subsequent encounter Start: 09-16-2024 End: 09-16-2024 Bamboo flowsheet Zulema B Apling OPERATIONAL RISK CONSULTANT Work Phone: [facility] Start: 09-16-2024 End: 09-16-2024 Bamboo flowsheet Zulema B Apling OPERATIONAL RISK CONSULTANT Work Phone: [facility] Start: 09-16-2024 End: 09-16-2024 Postop follow up visit related to original px Zulema B Apling OPERATIONAL RISK CONSULTANT Work Phone: [facility] Comment on above: Closed nondisplaced fracture of base of fifth metacarpal bone of left hand with routine healing, subsequent encounter (Primary Dx); Closed nondisplaced fracture of right patella with routine healing, unspecified fracture morphology, subsequent encounter Start: 09-16-2024 End: 09-16-2024 ambulatory ZULEMA B APLING Not Available Start: 08-19-2024 End: 08-19-2024 Bamboo flowsheet Zulema B Apling OPERATIONAL RISK CONSULTANT Work Phone: [facility] Start: 08-19-2024 End: 08-19-2024 Bamboo flowsheet Zulema B Apling OPERATIONAL RISK CONSULTANT Work Phone: [facility] Start: 08-19-2024 End: 08-19-2024 ambulatory ZULEMA B APLING Not Available Start: 08-19-2024 End: 08-19-2024 Postop follow up visit related to original px Zulema B Apling OPERATIONAL RISK CONSULTANT Work Phone: [facility] Comment on above: Right elbow pain (Pr imary Dx); Closed nondisplaced fracture of base of fifth metacarpal bone of left hand with routine healing, subsequent encounter Start: 08-07-2024 End: 08-07-2024 Bamboo flowsheet Zulema Smith Apling OPERATIONAL RISK CONSULTANT Work Phone: [facility] Start: 08-07-2024 End: 08-07-2024 Bamboo flowsheet Zulema B Apling OPERATIONAL RISK CONSULTANT Work Phone: [facility] Start: 08-07-2024 End: 08-07-2024 Postop follow up visit related to original px Zulema B Apling OPERATIONAL RISK CONSULTANT Work Phone: [facility] Comment on above: Closed nondisplaced fracture of right patella with routine healing, unspecified fracture morphology, subsequent encounter (Primary Dx); Right elbow pain Start: 08-07-2024 End: 08-07-2024 ambulatory ZULEMA B APLING Not Available Start: 07-22-2024 End: 07-22-2024 Bamboo flowsheet Zulema B Apling OPERATIONAL RISK CONSULTANT Work Phone: [facility] Start: 07-22-2024 End: 07-22-2024 Bamboo flowsheet Zulema B Apling OPERATIONAL RISK CONSULTANT Work Phone: [facility] Start: 07-22-2024 End: 07-22-2024 Office outpatient visit 15 minutes Zulema B Apling OPERATIONAL RISK CONSULTANT Work Phone: [facility] Comment on above: Left hand pain (Prim isamar Dx); Contusion of dorsum of left hand; Closed nondisplaced fracture of base of fifth metacarpal bone of left hand with routine healing, subsequent encounter Start: 07-22-2024 End: 07-22-2024 ambulatory ZULEMA B APLING Not Available Start: 07-10-2024 End: 07-10-2024 Bamboo flowsheet Zulema B Apling OPERATIONAL RISK CONSULTANT Work Phone: [facility] Start: 07-10-2024 End: 07-10-2024 Bamboo flowsheet Zulema B Apling OPERATIONAL RISK CONSULTANT Work Phone: [facility] Start: 07-10-2024 End: 07-10-2024 Office outpatient visit 15 minutes Zulema B Apling OPERATIONAL RISK CONSULTANT Work Phone: [facility] Comment on above: Closed nondisplaced fracture of right patella, unspecified fracture morphology, initial encounter (Primary Dx); Right knee pain, unspecified chronicity Start: 07-10-2024 End: 07-10-2024 ambulatory ZULEMA B APLING Not Available Start: 06-24-2024 End: 06-24-2024 Bamboo flowsheet Zulema B Apling OPERATIONAL RISK CONSULTANT Work Phone: [facility] Start: 06-24-2024 End: 06-24-2024 Bamboo flowsheet Zulema B Apling OPERATIONAL RISK CONSULTANT Work Phone: [facility] Start: 06-24-2024 End: 06-24-2024 Office outpatient visit 25 minutes Zulema B Apling OPERATIONAL RISK CONSULTANT Work Phone: [facility] Comment on above: Left hand pain (Prim isamar Dx); Right knee pain, unspecified chronicity; Contusion of right knee, initial encounter; Contusion of dorsum of left hand; Left shoulder pain, unspecified chronicity; Arthritis of left acromioclavicular joint; Glenohumeral arthritis, left Start: 06-24-2024 End: 06-24-2024 ambulatory ZULEMA Smith APLING Not Available Start: 06-13-2024 End: 06-13-2024 ambulatory ZOILA MONAE Facility:[facility] Start: 06-13-2024 End: 06-13-2024 Patient encounter procedure Zoila Monae MD Work Phone: [facility] Comment on above: Transient neurologic al symptoms (Primary Dx) Start: 06-11-[address] [facility] Start: 06-11-2024 End: 06-11-2024 Subsequent hospital visit by physician [facility] Work Phone: [facility] Comment on above: Memory deficit [R41. 3] Start: 06-04-2024 End: 06-04-2024 Orders Only Zoila Monae MD Work Phone: [facility] Comment on above: Memory deficit (Prim isamar Dx); Auditory hallucinations; Mentally challenged Start: 05-28-2024 End: 09-19-2024 Telephone encounter Zoila Monae MD Work Phone: [facility] Start: 03-06-2024 End: 03-06-2024 ambulatory TONY AMAYA Facility:[facility] Start: 03-06-2024 End: 03-06-2024 Patient encounter procedure Zoila Monae MD Work Phone: [facility] Comment on above: Memory deficit (Prim isamar Dx); Auditory hallucinations; Mentally challenged Start: 01-03-2023 End: 01-07-2023 Evaluation and management of inpatient DR TONY AMAYA . Facility: Start: 11-01-2022 End: 11-02-[address] TONY AMAYA . Facility:[facility] Start: 09-30-2022 End: 10-01-[address] ROSALINA RESENDIZ Facility:[facility] Start: 09-02-2022 End: 09-02-2022 ambulatory MD Tony Amaya Work Phone: [facility] Work Phone: Start: 09-02-2022 End: 09-02-2022 Patient encounter procedure MD Tony Amaya Work Phone: [facility] [place] Start: 08-25-2022 End: 08-25-[address] ROSALINA RESENDIZ Facility:[facility] Start: 08-10-2022 End: 08-12-2022 Admission to same day surgery center MD Tony Amaya Work Phone: [facility] Start: 08-10-2022 End: 08-12-2022 ambulatory MD Tony Amaya Work Phone: [facility] Work Phone: Start: 08-08-2022 End: 08-08-2022 ambulatory MD Tony Amaya Work Phone: [facility] Work Phone: Start: 08-08-2022 End: 08-08-2022 Departed Referred MD Tony Amaya Work Phone: [facility] Start: 08-05-2022 End: 08-05-2022 ambulatory MD Tony Amaya Work Phone: [facility] Work Phone: Start: 08-05-2022 End: 08-05-2022 Patient encounter procedure MD Tony Amaya Work Phone: [facility] Start: 07-30-2022 End: 07-30-[address] ROSALINA RESENDIZ Facility:[facility] Start: 07-04-2022 End: 07-06-[address] TONY AMAYA . Facility:[facility] Start: 07-04-2022 End: 07-04-[address] ALBERTO FERRO Facility:[facility] Start: 06-29-2022 Encounter for preprocedural laboratory examination NADEGE GARDNER . [facility] Start: 06-27-2022 End: 06-28-2022 ambulatory NADEGE GARDNER . Facility:[facility] Start: 06-27-2022 End: 06-28-2022 Encounter for preprocedural laboratory examination NADEGE GARDNER . Facility:[facility] Start: 06-22-2022 End: 06-23-2022 ambulatory NADEGE GARDNER . Facility:[facility] Start: 06-20-2022 End: 06-20-[address] TONY AMAYA . Facility:[facility] Start: 06-20-2022 End: 06-21-2022 ambulatory NADEGEMICHAEL AHUJA . Facility:[facility] Start: 03-03-[address] TONY AMAYA . Facili ty:[facility] Start: 03-02-2022 End: 03-03-[address] TONY AMAYA . Facility:[facility] Start: 01-18-2022 End: 01-21-2022 Evaluation and management of inpatient DR TONY AMAYA . Facility:[facility] Start: 03-30-2020 End: 04-06-2020 Evaluation and management of inpatient MICHAELAdolfo RODRIGUEZD Facility:[facility] Procedures Date Procedure Procedure Detail Performing Clinician Start: 11-28-2024 End: 11-28-2024 Needle emg ea extremty w/paraspinl area complete Monika Vargas DO Work Phone: Start: 11-26-2024 Urine culture Tony Amaya MD Work Phone: Start: 10-07-2024 Radex hand minimum 3 views Zulema hoffmann OPERATIONAL RISK CONSULTANT Work Phone: Start: 09-16-2024 Radex hand minimum 3 views Zulema hoffmann OPERATIONAL RISK CONSULTANT Work Phone: Start: 09-16-2024 Radiologic examination knee 3 views Zulema Mackay OPERATIONAL RISK CONSULTANT Work Phone: Start: 08-19-2024 Radex hand minimum 3 views Zulema hoffmann OPERATIONAL RISK CONSULTANT Work Phone: Start: 08-07-2024 End: 08-07-2024 Radex elbow 2 views Zulema Mackay OPERATIONAL RISK CONSULTANT Work Phone: Start: 07-22-2024 Radex hand minimum 3 views Zulema Bailey g OPERATIONAL RISK CONSULTANT Work Phone: Start: 06-24-2024 Radiologic examination knee 3 views Zulema Mackay OPERATIONAL RISK CONSULTANT Work Phone: Start: 06-11-2024 Electroencephalogram w/rec awake&drowsy Zoila Monae MD Work Phone: Start: 06-11-2024 Electroencephalogram w/rec awake&drowsy [facility] Start: 09-02-2022 Plain chest X-ray MD [...] RSV Vaccine (1 - 1-dose 75+ series) [facility] Start: 02-19-2027 Diabetes Screening Diabetes Screening [facility] Start: 06-04-2025 End: 06-04-2025 Patient encounter procedure 06/04/2025 1:00 PM EDT Office Visit [facility] [address] [facility] [address] [place] [address] Jr. Luis Armando Teague DO [address] [facility] [address] [place] [address] [facility] Start: 05-05-2025 End: 05-05-2025 Patient encounter procedure 05/05/2025 2:00 PM EDT Office Visit [facility] [address] [address] Naseem Carter, KAL[place] [address] [place], [place] [id number] Arrived [facility] Comment on above: Arrived Start: 03-11-2025 End: 03-11-2025 Patient encounter procedure 03/11/2025 2:00 PM EDT Office Visit [facility] [address] [place] [address] Jeter, Chuy J, PA [address] [place] [address] [facility] Start: 02-17-2025 End: 02-17-2025 Patient encounter procedure 02/17/2025 1:30 PM EDT Office Visit [facility] [address] [place] [phone] Naseem Carter, OPERATIONAL RISK CONSULTANT [address] [place], [place] [id number] [facility] Start: 02-10-2025 End: 02-10-2025 Patient encounter procedure 02/10/2025 11:00 AM EDT Office Visit [facility] [address] [place] [phone] Naseem Carter NP [address] [place] [address] [facility] Start: 12-04-2024 [facility] Start: 12-01-2024 Hospital admission [facility] Start: 12-01-2024 [facility] Start: 11-26-2024 Urine culture [facility] Start: 11-26-2024 Bacteria identified in Urine by Culture Urine Culture [facility] Start: 11-11-2024 End: 11-11-2024 Patient encounter procedure 11/11/2024 10:00 AM EST Office Visit [facility] [address] [facility] [address] [place] [address] Zulema Mackay NP [address] [facility] [address] [place] [address] [facility] Start: 11-08-2024 End: 11-08-2024 ambulatory 11/08/2024 12:00 PM EST Treatment [facility] [address] [place] [address] Zehra Bunch, OT [address] [place] [address] [facility] Start: 11-05-2024 End: 11-05-2024 ambulatory 11/05/2024 12:00 PM EST Treatment [facility] [address] [place] [address] Zehra Bunch, OT [address] [place] [address] [facility] Start: 11-01-2024 End: 11-01-2024 ambulatory 11/01/2024 1:00 PM EST Treatment [facility] [address] [place] [address] Zehra Bunch, OT [address] [place] [address] [facility] Start: 10-29-2024 End: 10-29-2024 ambulatory [facility] Comment on above: Arrived Start: 10-25-2024 End: 10-25-2024 ambulatory 10/25/2024 9:00 AM EST Treatment [facility] [address] [place] [address] Zehra Bunch, OT [address] [place] [address] [facility] Start: 10-22-2024 End: 10-22-2024 ambulatory 10/22/2024 1:00 PM EST Evaluation [facility] [address] [place] [address] Zehra Bunch, OT [address] [place] [address] Closed nondisplaced fracture of base of fifth metacarpal bone of left hand with routine healing, subsequent encounter [facility] Comment on above: Closed nondisplaced fracture of base of fifth metacarpal bone of left hand with routine healing, subsequent encounter Start: 10-11-2024 End: 10-11-2024 ambulatory 10/11/2024 1:30 PM EST Evaluation [facility] [address] [place] [address] Florina Degroot, OT [address] [place] [address] [facility] Start: 10-07-2024 End: 10-07-2024 Patient encounter procedure 10/07/2024 11:15 AM EST Office Visit [facility] [address] [place] [address] Zulema Mackay, OPERATIONAL RISK CONSULTANT [address] [place] [address] [facility] Start: 09-16-2024 End: 09-16-2024 Patient encounter procedure 09/16/2024 10:00 AM EST Office Visit [facility] [address] [place] [address] Zulema Mackay, OPERATIONAL RISK CONSULTANT [address] [place] [address] [facility] Start: 08-19-2024 End: 08-19-2024 Patient encounter procedure 08/19/2024 12:30 PM EST Office Visit [facility] [address] [place] [address] Zulema Mackay, OPERATIONAL RISK CONSULTANT [address] [place] [address] [facility] Start: 08-07-2024 End: 08-07-2024 Patient encounter procedure [facility] Comment on above: Closed nondisplaced fracture of right pa sal with routine healing, unspecified fracture morphology, subsequent encounter (Primary Dx) Start: 07-22-2024 End: 07-22-2024 Patient encounter procedure [facility] Comment on above: Left hand pain (Primary Dx); Contusion of dorsum of left hand Start: 07-10-2024 End: 07-10-2024 Patient encounter procedure 07/10/2024 12:15 PM EDT Office Visit [facility] [address] [place] [address] Zulema Mackay, OPERATIONAL RISK CONSULTANT [address] [place] [address] Arrived [facility] Comment on above: Arrived Start: 06-24-2024 End: 06-24-2024 Patient encounter procedure 06/24/2024 10:30 AM EDT Office Visit [facility] [address] [facility] [address] [place] [address] Zulema Mackay, OPERATIONAL RISK CONSULTANT [address] [facility] [address] [place] [address] Left hand pain (Primary Dx); Right knee pain, unspecified chronicity; Contusion of right knee, initial encounter; Contusion of dorsum of left hand; Left shoulder pain, unspecified chronicity; Arthritis of left acromioclavicular joint; Glenohumeral arthritis, left [facility] Comment on above: Left hand pain (Primary Dx); Right knee pain, unspecified chronicity; Contusion of right knee, initial encounter; Contusion of dorsum of left hand; Left shoulder pain, unspecified chronicity; Arthritis of left acromioclavicular joint; Glenohumeral arthritis, left Start: 06-13-2024 End: 06-13-2024 Patient encounter procedure 06/13/2024 12:30 PM EDT Office Visit Neurology [facility] [address] [place] [address] [place] [address] [place], [place] [phone] Return in about 3 months (around 06/06/2024) for with Dr. Monae. Neurology [facility] Comment on above: Return in about 3 months (around ) for with Dr. Monae. Start: 06-11-2024 End: 06-11-2024 Patient encounter procedure 06/11/2024 9:00 AM EDT Appointment [facility] [address] [address] Memory deficit [R41.3] [facility] Comment on above: Memory deficit [R41.3] Start: 06-02-2024 Covid-19 Vaccine ( season) Covid-19 Vaccine () [facility] Start: 06-02-2024 Covid-19 Vaccine () Covid-19 Vaccine () [facility] Start: 06-02-[address] [facility] Start: 03-29-2024 End: 03-29-2024 Patient encounter procedure 03/29/2024 11:45 AM EDT Office Visit Neurology [address] [place] [address] Memory deficit [R41.3] Neurology Comment on above: Memory deficit [R41.3] Start: 10-02-2023 Behavioral Health Screening Behavioral Health Screening [facility] Start: 06-02-2023 Covid-19 Vaccine ( season) Covid-19 Vaccine ( season) [facility] Start: 08-12-2022 [facility] Start: 08-10-2022 Consultation [facility] Start: 08-10-2022 End: 08-10-2022 [facility] Start: 2014 Pneumococcal Vaccine: 50+ (1 of 1 - PCV) Pneumococcal Vaccine: 50+ (1 of 1 - PCV) [facility] Start: 2014 Shingrix Vaccine (1 of 2) Shingrix Vaccine (1 of 2) [facility] Start: 2009 Lipid panel Lipid Screening [facility] Start: 2009 Screening for malignant neoplasm of colon [facility] Start: 2004 Screening for malignant neoplasm of breast Mammogram Screening [facility] Start: 1994 Screening for malignant neoplasm of cervix HPV Testing [facility] Start: 1985 Screening for malignant neoplasm of cervix [facility] Start: 1983 Urine microalbumin profile DTaP,Tdap,Td Vaccine (1 - Tdap) [facility] Start: 1982 Anxiety Screening Anxiety Screening [facility] Start: 1982 Depression Screening Depression Screening [facility] Start: 1982 Hepatitis C screening Hepatitis C Screening [facility] Start: 1982 HIV screening HIV Screening [facility] Acid Fast Bacilli Cu lture & Smear Acid Fast Bacilli Culture & Smear [facility] Anaerobic microbial culture Anaerobic Culture [facility] Bacteria identified in Urine by Culture Urine Culture [facility] Chlamydia trachomati s [Presence] in Unspecified specimen by Organism specific culture [facility] Work Phone: Chlamydia trachomati s [Presence] in Unspecified specimen by Organism specific culture [facility] EEG EEG NEUROLOGY 12:00 AM EDT [facility] End: 03-06-2025 EPIL EEG ROUTINE EPIL EEG ROUTINE NEUROLOGY Routine Memory deficit Auditory hallucinations 1 Occurrences starting 03/06/2024 until 03/06/2025 [facility] Work Phone: Comment on above: 1 Occurrences starting 03/06/2024 until 03/06/2025 Fungal Culture Result 1 Fungal Culture Re sult 1 [facility] Fungus identified in Unspecified specimen by Culture [facility] Work Phone: Mycobacterium sp identified in Unspecified specimen by Organism specific culture [facility] Work Phone: Mycology Culture Mycology Culture [facility] Patient Education Bipolar disord er - Discharge instructions [facility] [place] Instructions Know your Meds [facility] Work Phone: Patient referral [facility] Work Phone: [facility] Payers Date Payer Category Payer Self-pay 2017 Medicaid [id number] 2017 Medicaid (Managed Care) [employer] Member Subscriber Plan / Payer (Effective 2017-Present) Name: Emigdio Apodaca Relation to Subscriber: Self Name: Emigdio Apodaca Payer ID: Not on file Group ID: Not on file Type: Not on file Address: [place] [phone] 1964 Unknown [id number] 2.16.840.1.224270.3.579.2. 647 1964 Unknown [id number] 2.16.840.1.726830.3.579.2. 593 1964 Unknown [id number] 2.16.840.1.571983.3.579.2. 593 1964 Unknown [id number] 2.16.840.1.487100.3.579.2. 593 1964 Unknown [id number] 2.16.840.1.479404.3.579.2. 593 1964 Unknown [id number] 2.16.840.1.181443.3.579.2. 593 1964 Unknown [id number] 2.16.840.1.435741.3.579.2. 593 1964 Unknown [id number] 2.16.840.1.726508.3.579.2. 593 1964 Unknown [id number] 2.16.840.1.802877.3.579.2. 593 1964 Unknown [id number] 2.16.840.1.474315.3.579.2. 593 1964 Unknown [id number] 2.16.840.1.500750.3.579.2. 593 1964 Unknown [id number] 2.16.840.1.658216.3.579.2. 593 1964 Unknown [id number] 2.16.840.1.638275.3.579.2. 593 1964 Unknown [id number] 2.16.840.1.936154.3.579.2. 593 1964 Unknown [id number] 2.16.840.1.900940.3.579.2. 593 1964 Unknown [id number] 2.16.840.1.850436.3.579.2. 125 1964 Unknown [id number] 2.16840.1.740551.3.579.2. 1258 1964 Unknown [id number] 2.16840.1.512683.3.579.2. 1258 1964 Unknown [id number] 2.840.1.560448.3.579.2. 125 1964 Unknown [id number] 2.840.1.846149.3.579.2. 125 1964 Unknown [id number] 2.840.1.030592.3.579.2. 1258 1964 Unknown [id number] 2.840.1.200474.3.579.2. 125 1964 Unknown [id number] 2.840.1.821758.3.579.2. 125 1964 Unknown [id number] 2.840.1.138086.3.579.2. 125 1964 Unknown [id number] 2.840.1.533242.3.579.2. 1258 1964 Unknown [id number] 2.16840.1.749215.3.579.2. 1258 1964 Unknown [id number] 2.16840.1.935430.3.579.2. 1258 1964 Unknown [id number] 2.16.840.1.989454.3.579.2. 1258 1964 Unknown [id number] 2.16.840.1.635346.3.579.2. 1258 1964 Unknown [id number] 2.16.840.1.502349.3.579.2. 1258 1964 Unknown [id number] 2.16.840.1.778681.3.579.2. 1258 1964 Unknown [id number] 2.16.840.1.879074.3.579.2. 1258 1964 Unknown [id number] 2.16.840.1.614882.3.579.2. 1258 1964 Unknown [id number] 2.16.840.1.944056.3.579.2. 1258 1964 Unknown [id number] 2.16.840.1.937777.3.579.2. 1258 1964 Unknown [id number] 2.16.840.1.502059.3.579.2. 1258 1964 Unknown [id number] 2.16.840.1.806491.3.579.2. 1258 1964 Unknown [id number] 2.16.840.1.500940.3.579.2. 1258 1964 Unknown [id number] 2.16.840.1.847673.3.579.2. 1258 1964 Unknown [id number] 2.16.840.1.084404.3.579.2. 9 1959 Self-pay [id number] 1959 Unknown [id number] Medicaid [employer] Medicaid [id number] Unknown [id number] 2.16.840.1.859718.3.579.2. 531 Unknown [id number] 2.16.840.1.739486.3.579.2. 531 Unknown [id number] 2.16.840.1.897954.3.579.2. 531 Social History Date Type Detail Facility Tobacco smoking stat us NHIS Unknown if ever smoked [facility] Work Phone: Start: 1965 Sex Assigned At Female [facility] Start: 08-10-2022 End: 06-24-2024 Tobacco smoking status NHIS Never smoked tobacco (finding) [facility] Start: 03-06-2024 Tobacco smoking status MNIS Tobacco smoking consumption unknown [facility] Start: 03-06-2024 End: 05-05-2025 History of Social function [facility] Start: 03-06-2024 End: 05-05-[address] [facility] National Score (1-10 0), lower number is lower risk 76 [facility] Start: 1965 Sex Assigned At Not on file [facility] Start: 06-24-2024 Tobacco use and exposure Smokeless tobacco non-user [facility] Start: 06-24-2024 End: 05-05-2025 Alcoholic beverage intake Ex-drinker (finding) [facility] Start: 06-21-2024 Gender identity Identifies as female gender (finding) [facility] Start: 06-21-2024 Sexual orientation Heterosexual (finding) [facility] Start: 11-28-2024 End: 12-04-2024 Sex Female (finding) [facility] Medical Equipment Procedure Code Equipment Code Equipment Origin al Text Equipment Identifier Dates Thoracotomy Surgical adhesive/sealant, human-derived [id number] [facility] Start: 08-10-2022 Goals Date Patient Goal Desired Activity /State Functional Status Date Assessment Result Facility 12-04-2024 Functional status Patient at Baseline [facility] Work Phone: 08-12-2022 Functional status Patient at Baseline [facility] Work Phone: Mental Status Date Assessment Result Facility 12-04-2024 Cognitive function Cognitive Sta tus Patient at Baseline [facility] Work Phone: 08-12-2022 Cognitive function Cognitive Sta tus Patient at Baseline [facility] Work Phone: Clinical Notes 08-10-2022 to 07-17-2025 Telephone Encounter - Naseem Carter NP - 05/21/2025 4:10 PM EDTTelephone Encounter - Naseem Carter NP - 05/21/2025 4:10 PM EDTGrant Ko Carter NP - 05/05/2025 2:00 PM EDT Note Date & Type Note Facility 07-17-2025 Note Respiratory Progress Note Patient Name: Shelly Apodaca [...] order with home meds if pulmonary status is stable. Level 1: Every 4 hours PRN for [...] course of therapy. Patient will be re-evaluated every 24 hours. 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 Not on oxygen at home Continue prednisone, azithromycin, DuoNebs, reestablish care with pulmonology outpatient. Possible DC tomorrow Eyal Brooke MD family resource management professor, Division of Internal Medicine [facility] Med-7 Daily Progress Note - 07/16/2025 12:37 PM; Room: [address] [place] [address] Admission: 07/15/2025 2:46 PM; Length of stay: [...] a day. Patient has not seen a timekeeping supervisor for a while and would like to establish care with a new timekeeping supervisor. She reports shortness of breath, cough, and yellow sputum production. She denies other symptoms including fevers, chills, nausea, vomiting, or diarrhea. Physical Exam Visit Vitals BP 110/65 Pulse 88 Temp 36.4 ???C (97.5 ???F) Resp 18 No intake or output data [...] time. Estimated body mass index is 20.18 kg/m??? as calculated from the following: Height as of this encounter: 1.524 m (5'). Weight as of this encounter: 46.9 kg (103 lb 5.3 oz). Active Inpatient Problems Principal Problem: COPD exacerbation (CMS/[facility]) Active Problems: Other hyperlipidemia Acute hypoxic respiratory failure (CMS/HCC) Complete AV block (CMS/HCC) Bipolar depression (CMS/HCC) Acquired hypothyroidism Assessment and Plan COPD exacerbation [...] WBC AUTO 10*3/uL 3.58* 4.01 HEMOGLOBIN g/dL (more content not included)... [facility] 07-16-2025 Note 07/16/25 1211 Admission Assessment Questions Verify insurance with patient Yes Do you understand medical disease or what brought you into the hospital? Yes Who is your current PCP? Tony Amaya Can I schedule a follow up appointment for you at the time of discharge? No Does patient qualify for Complex Care Management Enrollment? No Do you understand why you are taking your current medications? Yes Are you taking your medications as prescribed? Yes Did patient provide teach back? No Pharmacy Bedside Delivery Status Interested Does the patient have a case filler assigned to them through their insurance? No [...] to send link and activate MyChart? No [facility] 07-16-2025 Note Respiratory Progress Note Patient Name: Shelly Apodaca [...] order with home meds if pulmonary status is stable. Level 1: Every 4 hours PRN for [...] course of therapy. Patient will be re-evaluated every 24 hours. Btei Martin, HOME HEALTH NURSE 07/16/2025 [facility] 07-15-2025 Note - Continue levothyroxine [facility] 07-15-2025 Note - Continue Lamictal, Celexa, Wellbutrin [facility] 07-15-2025 Note - S/p PPM [facility] 07-15-2025 Note - Continue simvastatin [facility] 07-15-2025 Note - Patient hypoxic up on arrival, 2 L nasal cannula placed, wean as able -Begin azithromycin x 3 days -Begin prednisone 40 mg oral x 5 days -Mucinex every 12 hours as needed -DuoNebs every 6 hours as needed [facility] 07-15-2025 Note 07/15/252021 Bronchodilator Assessment Grid RR 3 Dyspnea 2 Breath Sounds 2 Resp History 2 Oxygen to keep SpO2 >/= 92% 2 Peak Flow 0 Level Level 2 Patient came in through ED with family SOB. Per protocol will be scheduled TID [facility] 07-15-2025 Note Hospital Medicine History and Physical 07/15/2025 7:07 PM THE HOSPITALIST TEAM PREFERS TO USE XTRM FOR NON-URGENT COMMUNICATION 7AM-7PM. IF I DO NOT RESPOND WITHIN 20 MINUTES OR URGENT MATTERS, PLEASE CALL THROUGH THE FACILITIES SUPERVISOR. FROM 7PM-7AM, PLEASE PAGE [phone](COVR). Chief Complaint Chief Complaint Patient presents with Cough Left sided facial numbness History of Present Illness Emigdio Apodaca is an 59 y.o. female who came from home with past medical history of COPD on oxygen as needed, complete AV block s/p PPM, bipolar depression, hypothyroidism, hyperlipidemia presents to the emergency department with a chief complaint of a cough. Patient reports that for the last week she has been short of breath. She reports a cough with associated yellow sputum production. She reports lightheadedness, dizziness, fevers, chills, nausea, vomiting. States that she took her inhalers at home without relief. Denies being around anyone [...] ???F)] 36.9 ???C (98.4 ???F) Heart Rate: [72-86] 74 Resp: [15-26] 22 [...] COPD exacerbation (CMS/HCC) Acute hypoxic respiratory failure (CMS/[facility]) - Patient hypoxic upon arrival, 2 L nasal cannula placed, wean as able -Begin azithromycin x 3 days -Begin prednisone 40 mg oral x 5 days -Mucinex every 12 hours as needed -DuoNebs every 6 hours as needed Other hyperlipidemia - Continue simvastatin Complete AV block ([facility]) - S/p PPM Bipolar depression ([facility]) - Continue Lamictal, Celexa, Wellbutrin Acquired hypothyroidism [...] this hospital stay by a member of [facility]. Past Medical History Medical History[1] Past [...] and Sexual Activity Alcohol use: Not Currently (more content not included)... [facility] 07-15-2025 Note 07/15/25 3707 Financial Resource Strain How hard is it for you to pay for the very basics like food, housing, medical care, and heating? Not hard Housing Stability In the last 12 months, was there a time when you were not able to pay the mortgage or rent on time? N In the past 12 months, how many times have you moved where you were living? 0 (Lives at home w/ son) At any time in the past 12 months, were you homeless or living in a retirement (including now)? N Transportation Needs In the [...] the money to buy more. Never true Within the past 12 months, the food you bought just didn't last and you didn't have money to get more. Never true Stress Do you feel stress - tense, restless, nervous, or anxious, or unable to sleep at night because your mind is troubled all the time - these days? To some exte (endorsed establishment w/ current mental health services) Social Connections In a typical week, how many times do you talk on the phone with family, friends, or neighbors? More than 3 How often do you get together with friends or relatives? More than 3 How often do you attend buddhism or taoist services? More than 4 Do you belong [...] or more drinks on one occasion? Never Utilities In the past 12 months has the [employer], gas, oil, or water Phone.com threatened to shut off services in your home? No 07/15/25 1819 Referral Data Referral Source workers compensation specialist Referral Reason Psychosocial assessment Patient Information Primary Caregiver Self Activities of Daily Living Assistive Device Not applicable Ambulation Independent Dressing Independent Feeding Independent Behavior Oriented (A&Ox4) Communication Can write;Understands speaking;Talks;Understands Ghanaian;Reads Income Information Income Source Unemployed (Retired) Discharge [...] any alcohol consumption or recreational drug use. [facility] 05-21-2025 Telephone encounter Note Post op pain [...] carpal tunnel release May 22 @ [facility]. PAST MEDICAL HISTORY: Past Medical History: Diagnosis [...] 24 hours cholecalciferol (Vitamin D-3) 50 MCG (1999 UT) capsule 1 capsule, Daily RT ciprofloxacin (CIPRO) 500 mg, Every 12 hours citalopram (CELEXA) 20 mg, Daily RT Claritin 10 MG tablet Every 24 hours DSS 100 mg, Daily RT ergocalciferol (Vitamin D-2) 1.25 MG (87288 UT) capsule 1 capsule escitalopram (LEXAPRO) 10 [...] for Post-Op June 04 @ 1:[address] [place] [address] Teague. documented in this encounter [facility] 03-28-2025 Note SUBJECTIVE Reason for Visit: Emigdio [...] bradycardia. The patient was recently admitted to [facility] (11/25-11/27) after running out of home oxygen for approximately two weeks, experiencing dizziness, shortness of breath, and oxygen desaturations below 90%. She also had a four-day history of fever, nausea, vomiting, and decreased oral intake. Workup revealed influenza A and right lower lobe pneumonia. She was treated with supplemental oxygen, Tamiflu, steroids, and antibiotics before discharge. Most recent discharge from [facility] admission date 02/20/2025 Primary diagnoses hypoxia, acute [...] 20 mg, Daily (more content not included)... [facility] 03-28-2025 Note Patient here today f or a 4 month follow up. Patient states she is doing well, no cardiac complaints at this time. Patient states she will be having left hand surgery in April or May with Dr. Teague. Review of Systems Constitutional: Negative. [facility] 02-17-2025 History of Presen t illness Narrative [...] Daily RT ergocalciferol (Vitamin D-2) 1.25 MG (30533 UT) capsule 1 capsule escitalopram (LEXAPRO) 10 [...] for requiring urgent evaluation. Naseem Carter APRN, OPERATIONAL RISK CONSULTANT-C Naseem Carter NP documented in this encounter [facility] 02-11-2025 Telephone encounter Note Patient can come to [place] 02/17 at 1:30. [facility] 02-11-2025 Miscellaneous Notes Patient can come to [place] 02/17 at 1:30. Called patient back, had to leave a voicemail. She does need to come back in for surgery instructions. She can do Monday @ 1:30 if she calls back. Patient called and left vm stating she missed her appt today because she had the flu. Please call patient at [phone]. documented [facility] this [facility] [...] had the flu. Please call patient at [phone]. [facility] 01-08-2025 History of [...] 09/16/24, 08/19/24, 07/22/24 IN EPIC XRAY 06/19/25 @[facility] (L) UE EMG 11/28/24 NO MRI [...] CONTUSION TO (L) HAND ; TAKEN TO [facility] ER - TX WITH NORCO (R) [...] Daily RT ergocalciferol (Vitamin D-2) 1.25 MG (57436 UT) capsule 1 capsule escitalopram (LEXAPRO) 10 [...] is normal. 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 She reports not eating, poor ADLs, not taking her medications and sleeping too much. She denies alcoholor illegal substance abuse. Patient denies hallucinations. Patient did report her sister completed suicide. Of note, patient reports being in [facility] Monday and Monday of last week [...] them since Monday when she was at [facility] for the flu. She states her diarrhea has improved. She did eat some breakfast this morning but states she is a picky eater. Patient sees Jennifer Beasley counselor in [place]. 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 If at any time you are feeling an increase inyour psychiatric symptoms, call your physician or behavioral healthcare provider. If any time you have thoughts of harming yourself or others contact one of the following: Call (available 24/04) Crisis Text Line (available 24/04) text 4HOPE to [phone] [facility] Hope Line (available 8 a.m. Midnight) call [phone] ([phone]) Instructions: Know your Meds Prescriptions: Continued lamotrigine [...] Patient Comments: 3 days left Follow Up: [facility] [Outside] (established) Tony Amaya MD [...] <Electronically signed by Jaquan Babin MD> 12/04/24 [facility] Work Phone: 1(546) 184-453803-05-[address] [address] Discharge Summary Signed Patient: Emigdio Apodaca MR#: [id number] : 1965 Acct:[id number] Age/Sex: 59 / F Adm Date: 5 Loc: Room: [address] [place] [address]: Jaquan Babin MD Copies to: [...] respond. 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 She reports not eating, poor ADLs, not taking her medications and sleeping too much. She denies alcoholor illegal substance abuse. Patient denies hallucinations. Patientdid report her sister completed suicide. Of note, patient reports being in [facility] Monday and Monday of last week [...] them since Monday when she was at [facility] for the flu. She states herdiarrhea has improved. She did eat some breakfast this morning but states she is a picky eater. Patient sees Jennifer Beasley, counselor in [place]. 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 If at anytime you are feeling an increase inyour psychiatric symptoms, call your physician or behavioral healthcare provider. If any time you have thoughts of harming yourself or others contact one of the following: Call (available 24/04) Crisis Text Line (available 24/04) text 4HOPE to [phone] [facility] Hope Line (available 8 a.m. Midnight) call [phone] ([phone]) Instructions: Know your Meds Prescriptions: Continued lamotrigine [...] Patient Comments: 3 days left Follow Up: [facility] [Outside] (established) [...] MD 12/04/24 1001 Signed By: 12/04/24 1005 [facility]03-04-2025 Progress note Author Jaquan Babin [facility] Note Date/Time December 03, 2024 1:11 pm [facility] EN[facility] [address] [place] [address] Psychiatry Progress Note Signed Patient: Emigdio Apodaca MR#: [id number] : 1965 Acct:[id number] Age/Sex: 59 / F Adm Date: 5 Loc: Room: [address] [place] [address] Type : ADM IN Attending Dr: Jaquan [...] <Electronically signed by Jaquan Babin MD> 12/03/24 [facility] Work Phone: 1(955) 572-550403-04-2025 [place] [address] Psychiatry Progress Note Signed Patient: Emigdio Apodaca MR#: [id number] : 1965 Acct:[id number] Age/Sex: 59 / F Adm Date: 5 Loc: Room: [address] [place] [address] Type : ADM IN Attending Dr: Jaquan [...] Babin MD 12/03/24 0939 Signed By: 12/03/[address] [place], [place] 8753103-03-2025 History and physical note Author Jaquan Babin [facility] Note Date/Time December 02, 2024 1:55 pm [facility] [address] [place] [address] Psychiatry H&P Signed Patient: Emigdio Apodaca MR#: [id number] : 1965 Acct:[id number] Age/Sex: 59 / F Adm Date: 5 Loc: Room: [address] [place] [address] Type: ADM IN Attending Dr: Jaquan Babin [...] respond. 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 She reports not eating, poor ADLs, not taking her medications and sleeping too much. She denies alcoholor illegal substance abuse. Patient denies hallucinations. Patient did report her sister completed suicide. Of note, patient reports being in [facility] Monday and Monday of last week [...] them since Monday when she was at [facility] for the flu. She states her diarrhea has improved. She did eat some breakfast this morning but states she is a picky eater. Patient sees Jennifer Beasley counselor in [place]. 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 She reports not eating, poor ADLs, not taking her medications and sleeping too much. She denies alcoholor illegal substance abuse. Patient denies hallucinations.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 [address] Referral ID Status Reason Start Date Expiration Date Visits Requested Visits Authorized [id number] Ref Not Required PCP Requested Referral 03/06/2024 06/04/2024 1 3 [facility] for referral (narrative)* Outpatient Procedure (Routine) - Closed Specialty Diagnoses / Procedures Referred By Chris cadena Referred To Contact NEUROLOGICAL STAR Diagnoses Memory deficit Auditory hallucinations Procedures EPIL EEG ROUTINE ELECTROENCEPHALOGRAM REC COMA/[place] [id number] [place] [address] Referral ID Status Reason Start Date Expiration Date V isits Requested Visits Authorized [id number] Closed Auto-Generate d Referral 03/06/2024 03/06/2025 1 1 [facility] for visit Narrative* Outpatient Procedure (Routine) - Closed Specialty Diagnoses / Procedures Referred By Contac t Referred To Contact [facility] Diagnoses Memory deficit Auditory hallucinations Procedures EPIL EEG ROUTINE ELECTROENCEPHALOGRAM REC COMA/[place] [address] [place] [address] Neurological [place] [address] [place] [address] Referral ID Status Reason Start Date Expiration Date V isits Requested Visits Authorized [id number] Closed Auto-Generate d Referral 03/06/2024 03/06/2025 1 1 [facility] for visit Narrative* Consultation (Routine) - Authorized Specialty Diagnoses / Procedures Referred By Chris t Referred To Contact Occupational Therapy / Physical Therapy Diagnoses Closed nondisplaced fracture of base of fifth metacarpal bone of left hand with routine healing, subsequent encounter Procedures [place] OFFICE/OUTPATIENT NEW HIGH MDM 60 MINUTES Zulema Mackay NP [address] [address] Phone: tel: fax: Zehra Bunch, OT [address] [address] Phone: tel:[phone] fax:[phone] Referral ID Status Reason Start Date Expiration Date Visits Requested Visits Authorized [id number] Authorized Consult and Treat 10/07/2024 04/05/2025 8 8 [facility] for visit Narrative* Consultation (Routine) - Authorized Specialty Diagnoses / Procedures Referred By Chris t Referred To Contact Occupational Therapy / Physical Therapy Diagnoses Closed nondisplaced fracture of base of fifth metacarpal bone of left hand with routine healing, subsequent encounter Procedures [place] OFFICE/OUTPATIENT NEW HIGH MDM 60 MINUTES Zulema Mackay NP [address] [place] [facility] [address] [place] [address] Phone: tel: fax: Zehra Bunch, OT [address] [place] [address] Phone: tel:[phone] fax:[phone] Referral ID Status Reason Start Date Expiration Date Visits Requested Visits Authorized [id number] Authorized Consult and Treat 10/07/2024 10/01/2025 8 8 [facility] Narrative* Consultation (Routine) - Closed Specialty Diagnoses / Procedures Referred By Contac t Referred To Contact Neurology Diagnoses Numbness and tingling in left hand Procedures [place] OFFICE/OUTPATIENT NEW HIGH MDM 60 MINUTES Zulema Mackay NP fax: Monika Vargas, [address] [place] [address] Phone: tel: fax: Referral ID Status Reason Start Date Expiration Date V isits Requested Visits Authorized [id number] Closed Specialty Services Required 11/11/2024 05/10/2025 1 [...] 2022 9:18am Hospital Course Note MR#: [id number] Pt. Name: Emigdio Apodaca Admitted: 03/30/2020 [...] EA AD[place] 30 [place] [address] [place] [address] Referral ID Status Reason Start Date Expiration Date Visits Requested Visits Authorized [id number] Ref Not Required PCP Requested Referral 06/04/2024 09/02/2024 1 3 Additional Source Comments INFORMATION SOURCE (unrecogn ized section and content) DATE CREATED AUTHOR 04/23/2020 [facility] DATE CREATED AUTHOR AUTHOR'S ORGANIZ ATION 01/07/2023 [facility] DATE CREATED AUTHOR AUTHOR'S ORGANIZ ATION 06/15/2024 [facility] DATE CREATED AUTHOR AUTHOR'S ORGANIZ ATION 09/22/2024 [facility] DATE CREATED AUTHOR AUTHOR'S ORGANIZ ATION 05/07/2025 [facility] EPIC DATE CREATED AUTHOR AUTHOR'S ORGANIZ ATION 05/14/2025 [facility] DATE CREATED AUTHOR AUTHOR'S ORGANIZ ATION 07/20/2025 [facility] Care Teams (unrecognized sec tion and content) [...] Active Rodolfo Harley MD Attending Provider Active Animated Cartoons Painter Relationship Specialty Start Date End Date Tony Amaya MD [address] [place] [address] Referring Family Medicine 02/09/24 Animated Cartoons Painter Relationship Specialty Start Date End Date Tony Amaya MD [address] [place] [address] Referring Family Medicine 02/09/24 Animated Cartoons Painter Relationship Specialty Start Date End Date Tony Amaya MD [address] [place] [address] Referring Family Medicine 02/09/24 Animated Cartoons Painter Relationship Specialty Start Date End Date Tony Amaya MD [address] [facility] [place] [address] Referring Family Medicine 02/09/24 Animated Cartoons Painter Relationship Specialty Start Date End Date oTny Amaya MD [address] [facility] [place] [address] PCP - General Family Medicine 06/13/24 Tony Amaya MD [address] [facility] [place] [address] Referring Family Medicine 02/09/24 Animated Cartoons Painter Relationship Specialty Start Date End Date Tony Amaya MD [address] [facility] [place] [address] PCP - General Family Medicine 06/24/24 Animated Cartoons Painter Relationship Specialty Start Date End Date Tony Amaya MD [address] [facility] [place] [address] PCP - General Family Medicine 06/24/24 Animated Cartoons Painter Relationship Specialty Start Date End Date Tony Amaya MD [address] [facility] [place] [address] PCP - General Family Medicine 06/24/24 Animated Cartoons Painter Relationship Specialty Start Date End Date Tony Amaya MD [address] [facility] [place] [address] PCP - General Family Medicine 06/24/24 Animated Cartoons Painter Relationship Specialty Start Date End Date Tony Amaya MD [address] [facility] [place] [address] PCP - General Family Medicine 06/24/24 Animated Cartoons Painter Relationship Specialty Start Date End Date Tony Amaya MD [address] [facility] [place] [address] PCP - General Family Medicine 06/24/24 Animated Cartoons Painter Relationship Specialty Start Date End Date Tony Amaya MD [address] [facility] [place] [address] PCP - General Family Medicine 06/24/24 Animated Cartoons Painter Relationship Specialty Start Date End Date Tony Amaya MD [address] [facility] [place] [address] PCP - General Family Medicine 06/24/24 Animated Cartoons Painter Relationship Specialty Start Date End Date Tony Amaya MD [address] [facility] [place] [address] PCP - General Family Medicine 06/24/24 Animated Cartoons Painter Relationship Specialty Start Date End Date Tony Amaya MD [address] [facility] [place] [address] PCP - General Family Medicine 06/13/24 Tony Amaya MD [address] [facility] [place] [address] Referring Family Medicine 02/09/24 Animated Cartoons Painter Relationship Specialty Start Date End Date Tony Amaya MD [address] [facility] [place] [address] PCP - General Family Medicine 06/24/24 Animated Cartoons Painter Relationship Specialty Start Date End Date Tony Amaya MD [address] [facility] [place] [address] PCP - General Family Medicine 06/24/24 Animated Cartoons Painter Relationship Specialty Start Date End Date Tony Amaya MD [address] [facility] PCP - General Family Medicine 06/24/24 Animated Cartoons Painter Relationship Specialty Start Date End Date Tony Amaya MD [address] [facility] [place] [address] PCP - General Family Medicine 06/24/24 Animated Cartoons Painter Relationship Specialty Start Date End Date Tony Amaya MD [address] [facility] PCP - General Family Medicine 06/24/24 Animated Cartoons Painter Relationship Specialty Start Date End Date Tony Amaya MD [address] [facility] PCP - General Family Medicine 06/24/24 Animated Cartoons Painter Relationship Specialty Start Date End Date Tony Amaya MD [address] [facility] PCP - General Family Medicine 06/24/24 Animated Cartoons Painter Relationship Specialty Start Date End Date Tony Amaya MD [address] [facility] [place] [address] PCP - General Family Medicine 06/24/24 Animated Cartoons Painter Relationship Specialty Start Date End Date Tony Amaya MD [address] [facility] [place] [address] PCP - General Family Medicine 06/24/24 Animated Cartoons Painter Relationship Specialty Start Date End Date Tony Amaya MD [address] [facility] [place] [address] PCP - General Family Medicine 06/24/24 Animated Cartoons Painter Relationship Specialty Start Date End Date Tony Amaya MD [address] [facility] [place] [address] PCP - General Family Medicine 06/24/24 Team Status: Active Member Role Status Dates Tony Amaya MD Primary Care Provider Active Start: November 14, 2024 Alejandro Maciel MD Attending Provider Active Start: November 14, 2024 Team Status: Inactive Member Role Status Dates Tony Amaya MD Attending Provider Active Sta rt: November 26, 2024 End: November 26, 2024 Animated Cartoons Painter Relationship Specialty Start Date End Date Tony Amaya MD [address] [facility] [place] [address] PCP - General [facility] Medicine 06/24/24 Team Status: Active Member Role [...] Other Provider Active Start: December 02, 2024 Animated Cartoons Painter Relationship Specialty Start Date End Date Tony Amaya MD PCP - General Family Medicine 06/24/24 Animated Cartoons Painter Relationship Specialty Start Date End Date Tony Amaya MD PCP - General Family Medicine 06/24/24 Animated Cartoons Painter Relationship Specialty Start Date End Date Tony Amaya MD PCP - General Family Medicine 06/24/24 Animated Cartoons Painter Relationship Specialty Start Date End Date Tony mAaya MD [address] [place] [address] PCP - General Family Medicine 05/02/25 Animated Cartoons Painter Relationship Specialty Start Date End Date Tony Amaya MD [address] [place] [address] PCP - General Family [facility] 05/02/25 Goals (unrecognized section and content) Goals [...] prosecute any alcohol or drug abuse patient.[facility] the event this information is protected by the Federal Confidentiality of Alcohol and Drug Abuse Patient Records regulations: The Federal rules restrict any use of the information to criminally investigate or prosecute any alcohol or drug abuse patient.[facility] the event this information is protected by the Federal Confidentiality of Alcohol and Drug Abuse Patient Records regulations: The Federal rules restrict any use of the information to criminally investigate or prosecute any alcohol or drug abuse patient.[facility] the event this information is protected by the Federal Confidentiality of Alcohol and Drug Abuse Patient Records regulations: The Federal rules restrict any use of the information to criminally investigate or prosecute any alcohol or drug abuse patient.[facility] the event this information is protected by the Federal Confidentiality of Alcohol and Drug Abuse Patient Records regulations: The Federal rules restrict any use of the information to criminally investigate or prosecute any alcohol or drug abuse patient.[facility] the event this information is protected by the Federal Confidentiality of Alcohol and Drug Abuse Patient Records regulations: The Federal rules restrict any use of the information to criminally investigate or prosecute any alcohol or drug abuse patient.[facility] Reason for Visit (unrecogniz ed section and [...] BE BASED ON THE PRIMARY CLINICAL RECORDS. [employer] [facility]. provides no warranty or guarantee of the accuracy or completeness of information in this document.
--- NOTE | 2025-07-20 22:28 | ECG_ITS ---
[facility] Test Date: 2025-07-20 Pat Name: EMIGDIO ELI Department: Room: - Gender: Female Person Investigator: : 1965 Requested By: [id number] Order Number: [id number] Reading MD: GAIL PARRA Measurements Intervals Steen Rate: 90 P: 13 TX: 166 QRS: 96 QRSD: 76 T: 70 QT: 340 QTc: 388 Interpretive Statements 02930 Electronic atrial pacemaker 7102 Moderate right axis deviation 9120 atypical ECG Compared to ECG 02/19/2025 22:49:13 Right-axis deviation now present Sinus rhythm no longer present Electronically Signed On 07-21-2025 13:15:31 EDT by GAIL PARRA
--- NOTE | 2025-07-20 22:34 | XR_ITS ---
[facility] [place] [id number] Patient Name: EMIGDIO ELI MRN: [id number] date: 1965 Sex: F Assigned Patient Location: ER Current Patient Location: [place] Accession/Order Number: [id number] Exam Date: 07/20/2025 22:40 Report Date: 07/21/2025 08:09 At the request of: EFLICIANO FIGUEREDO MD Procedure: XR chest 1V XR chest 1V 07/20/2025 10:43 PM SIGNS AND SYMPTOMS: ^short of breath PROTOCOL: Frontal radiograph of the chest COMPARISON: 07/14/2025 FINDINGS: The trachea is midline. There is a dual lead pacer device on the left. The heart and mediastinal structures are within normal limits. Similar scarring is noted in the right mid chest laterally. The lung parenchyma is clear, otherwise. The bony thorax is intact. XR/XR chest 1V IMPRESSION: No acute cardiopulmonary pathology. Impression dictated by: Edmond Canada M.D. 07/21/2025 8:09 AM Dictation Location: [place] [id number] Electronically authenticated by: [id number] Y Date: 07/21/2025 08:09
--- NOTE | 2025-07-20 22:36 | ED.URI1 ---
HPI - URI/Sore Throat General Chief Complaint: Upper Respiratory Infection Stated Complaint: SOB, POSS LOW OXYGEN Time Seen by Provider: 07/20/25 22:20 Source: patient Limitations: no limitations History of Present Illness HPI Narrative: past history of COPD. Presents complaining of worsening shortness of breath for past 3 days. Denies chest pain or nausea. Diarrhea-nonbloody- past couple of days. No abdominal pain. No fever. Short of breath at rest Related Data Home Medications ?Medication ?Instructions ?Recorded ?Confirmed bupropion HCl 300 mg 24 hr tablet, 300 mg PO DAILY 09/25/23 07/20/25 extended release cholecalciferol (vitamin D3) 50 50 mcg PO DAILY 09/25/23 07/20/25 mcg (2,000 unit) capsule citalopram 20 mg tablet 20 mg PO DAILY 09/25/23 07/20/25 lamotrigine 25 mg tablet 50 mg PO BEDTIME 09/25/23 07/20/25 lansoprazole 30 mg capsule,delayed 30 mg PO DAILY 09/25/23 07/20/25 release levothyroxine 125 mcg tablet 125 mcg PO DAILY 09/25/23 07/20/25 simvastatin 20 mg tablet 20 mg PO QPM 09/25/23 07/20/25 docusate sodium 100 mg capsule 100 mg PO DAILY PRN constipation 12/22/23 07/20/25 ([facility]-Rite) loratadine 10 mg tablet (Allergy 10 mg PO DAILY 12/22/23 07/20/25 Relief (loratadine)) alendronate 70 mg tablet 70 mg PO QWEEK 11/25/24 07/20/25 albuterol sulfate 2.5 mg/3 mL 2.5 mg inhalation Q4H PRN 02/19/25 07/20/25 (0.083 %) solution for nebulization shortness of breath or wheezing budesonide-formoterol HFA 80 2 inh inhalation Q12H 07/20/25 07/20/25 mcg-4.5 mcg/actuation aerosol inhaler (Symbicort) Previous Rx's ?Medication ?Instructions ?Recorded albuterol sulfate 90 mcg/actuation 2 inh inhalation Q6H PRN shortness 02/22/25 aerosol inhaler (Ventolin HFA) of breath or wheezing #8.5 grams meclizine 25 mg tablet 25 mg PO QID PRN dizziness #30 tabs 02/22/25 benzonatate 100 mg capsule 100 mg PO Q6H PRN cough #14 caps 07/14/25 Allergies Allergy/AdvReac Type Severity Reaction Status Date / Time codeine Allergy Mild Vomiting Verified 07/20/25 22:23 oxycodone (From Percocet) Allergy Mild Vomiting Verified 07/20/25 22:23 promethazine Allergy Mild Agitated Verified 07/20/25 22:23 Sulfa (Sulfonamide Allergy Mild Vomiting Verified 07/20/25 22:23 Antibiotics) hydromorphone (From Dilaudid) AdvReac Mild Rash Verified 07/20/25 22:23 prochlorperazine (From AdvReac Mild Unknown Verified 07/20/25 22:23 Compazine) Review of Systems ROS Status of ROS 10 or more systems reviewed and unremarkable except as noted in history and below [facility] Medical History (Updated 07/20/25 @ 23:51 by Mark Martinez MD) Asthma ?J45.909 - Unspecified asthma, uncomplicated (ICD-10) Hypoxia ?R09.02 - Hypoxemia (ICD-10) Acute bronchitis ?J20.9 - Acute bronchitis, unspecified (ICD-10) Acute exacerbation of chronic obstructive pulmonary disease (COPD) ?J44.1 - Chronic obstructive pulmonary disease with (acute) exacerbation (ICD-10) Hypoxemia ?R09.02 - Hypoxemia (ICD-10) ESE (acute kidney injury) ?N17.9 - Acute kidney failure, unspecified (ICD-10) Flu ?J11.1 - Influenza due to unidentified influenza virus with other respiratory manifestations (ICD-10) GERD (gastroesophageal reflux disease) ?K21.9 - Gastro-esophageal reflux disease without esophagitis (ICD-10) Hypercholesterolemia ?E78.00 - Pure hypercholesterolemia, unspecified (ICD-10) Acute respiratory failure with hypoxia ?J96.01 - Acute respiratory failure with hypoxia (ICD-10) Respiratory distress ?R06.03 - Acute respiratory distress (ICD-10) Neutropenia ?D70.9 - Neutropenia, unspecified (ICD-10) Hypotension due to hypovolemia ?E86.1 - Hypovolemia (ICD-10) Gastroenteritis due to COVID-19 virus ?U07.1 - COVID-19 (ICD-10) ?A08.39 - Other viral enteritis (ICD-10) Dehydration ?E86.0 - Dehydration (ICD-10) ESE (acute kidney injury) ?N17.9 - Acute kidney failure, unspecified (ICD-10) Gastroenteritis ?K52.9 - Noninfective gastroenteritis and colitis, unspecified (ICD-10) COVID ?U07.1 - COVID-19 (ICD-10) COVID-19 ?U07.1 - COVID-19 (ICD-10) Effusion of knee joint right ?M25.461 - Effusion, right knee (ICD-10) Contusion of hand, left ?S60.222A - Contusion of left hand, initial encounter (ICD-10) Chest pain ?R07.9 - Chest pain, unspecified (ICD-10) Hypothyroid ?E03.9 - Hypothyroidism, unspecified (ICD-10) Esophagitis ?K20.90 - Esophagitis, unspecified without bleeding (ICD-10) Pancolitis ?K51.00 - Ulcerative (chronic) pancolitis without complications (ICD-10) Pulmonary hypertension ?I27.20 - Pulmonary hypertension, unspecified (ICD-10) Cholecystitis ?K81.9 - Cholecystitis, unspecified (ICD-10) Depression ?F32.A - Depression, unspecified (ICD-10) On home O2 ?Z99.81 - Dependence on supplemental oxygen (ICD-10) Hyperthyroidism ?E05.90 - Thyrotoxicosis, unspecified without thyrotoxic crisis or storm (ICD-10) Scoliosis ?M41.9 - Scoliosis, unspecified (ICD-10) Emphysema lung ?J43.9 - Emphysema, unspecified (ICD-10) Nausea & vomiting ?R11.2 - Nausea with vomiting, unspecified (ICD-10) Pacemaker ?Z95.0 - Presence of cardiac pacemaker (ICD-10) COPD (chronic obstructive pulmonary disease) ?J44.9 - Chronic obstructive pulmonary disease, unspecified (ICD-10) Surgical History History of tonsillectomy ?Z90.89 - Acquired absence of other organs (ICD-10) H/O right wrist surgery ?Z98.890 - Other specified postprocedural states (ICD-10) H/O colectomy ?Z90.49 - Acquired absence of other specified parts of digestive tract (ICD-10) Family History Mother Family history of COPD (chronic obstructive pulmonary disease) Grandmother Family history of cancer Sister Family history of diabetes mellitus Father Family history of myocardial infarction Social History (Updated 12/27/23 @ 23:45 by Meghana Lo) Within the past year, how often did you have a drink containing alcohol: never Within the past year, how often did you have six or more drinks on one occasion: never Score interpretation: A score less than 3 is consistent with normal alcohol consumption. 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 Known occupational exposures/hazards: No Highest level of school completed/degree received: 10th grade Do you want help with school or training: No Are you now , , , , never or living with a partner: In a typical week, how many times do you talk on the telephone with family, friends, or neighbors: 3 or more times per week How often do you get together with friends or relatives: 3 or more times per week How often do you attend anabaptist or congregational services: 4 or more times per year Do you belong to any clubs or organizations such as anabaptist groups unions, fraternal or athletic groups, or school groups: yes Total score: 3 Score interpretation: A score of greater than or equal to 2 indicates the lowest level of social isolation. Little interest or pleasure in doing things: not at all Feeling down, depressed, or hopeless: not at all Feel stressed/tense/nervous/anxious/difficulty sleeping: to some extent Life stressors: unknown source of stress Due to disability, difficulty making decisions: No Do you think of yourself as: bisexual Gender Identity: female Exam Constitutional Vital Signs, click to edit/add: Last Vital Signs Temp 98.3 F 07/20/25 22:23 Pulse 87 07/20/25 23:33 Resp 24 H 07/20/25 23:33 BP 138/89 07/20/25 22:23 Pulse Ox 97 07/20/25 23:33 O2 Del Method Nasal Cannula 07/20/25 23:33 O2 Flow Rate 2 07/20/25 23:33 Common normals: average body habitus, oriented x3 and alert General appearance: in distress HENMT Common normals: normocephalic and head/scalp atraumatic Eye Common normals: PERRL, EOMs intact bilaterally, conjunctivae normal and no scleral icterus Respiratory Effort & inspection: tachypneic, respiratory distress and audible wheezes Cardio Common normals: regular rate, regular rhythm, S1 normal heart sound and S2 normal heart sound GI Common normals: Normal to inspection, nondistended, normoactive bowel sounds present, soft to palpation and non-tender Extremity Common normals: normal to inspection and full ROM Neuro Common normals: oriented x3, CN's II-XII intact bilaterally, moves all extremities and no focal motor deficits Psych Appearance: grossly normal Course Vital Signs Vital signs: Vital Signs Temperature 98.3 F 07/20/25 22:23 Pulse Rate 93 H 07/20/25 22:23 Respiratory Rate 20 07/20/25 22:23 Blood Pressure 138/89 07/20/25 22:23 Pulse Oximetry 91 L 07/20/25 22:23 Oxygen Delivery Method Room Air 07/20/25 22:23 Temperature 98.3 F 07/20/25 22:23 Pulse Rate 87 07/20/25 23:33 Respiratory Rate 24 H 07/20/25 23:33 Blood Pressure 138/89 07/20/25 22:23 Pulse Oximetry 97 07/20/25 23:33 Oxygen Delivery Method Nasal Cannula 07/20/25 23:33 Oxygen Delivery Flow Rate 2 07/20/25 23:33 MDM - URI/Sore Throat MDM Narrative Medical decision making narrative: past history of [employer]. presents with worsening shortness of breath past 3 days. Has dry cough and diffuse wheezing. pulse ox 2L NC 07%. cxray with evidence of emphysema but no acute infiltrate. Treated with duoneb x 2 and solumedrol and remains short of breath and has continued wheezing. troponin neg, BNP WNL. WBC normal. Discussed with the hospitalist and will plan obs admission Lab Data Labs: Lab Results 07/20/25 Range/Units 22:35 WBC 8.6 (4.0-11.0) 10^3/uL RBC 5.00 (4.20-5.40) 10^6/uL Hgb 13.7 (12.0-16.0) g/dL Hct 42.2 (36.0-48.0) % MCV 84.4 (81.0-99.0) fL MCH 27.4 (26.7-34.0) pg MCHC 32.5 (29.9-35.2) g/dL RDW 14.1 (11.0-15.0) % Plt Count 283 (150-450) 10^3/uL MPV 9.5 (9.5-13.5) fL Neut % (Auto) 70.6 (43.0-75.0) % Lymph % (Auto) 19.1 L (20.5-60.0) % [place] % (Auto) 4.8 (1.7-12.0) % Eos % (Auto) 5.1 (0.9-7.0) % Baso % (Auto) 0.2 (0.2-2.0) % Neut # (Auto) 6.0 (1.4-6.5) 10^3/uL Lymph # (Auto) 1.6 (1.2-3.8) 10^3/uL [place] # (Auto) 0.4 (0.3-0.8) 10^3/uL Eos # (Auto) 0.4 (0.0-0.7) 10^3/uL Baso # (Auto) 0.0 (0.0-0.1) 10^3/uL Abs Immat Gran (auto) 0.02 (0.00-0.03) 10^3/uL Imm/Tot Granulo (auto) 0.2 (0.0-0.5) % Sodium 140 (136-145) mmol/L Potassium 3.8 (3.5-5.1) mmol/L Chloride 102 (98-107) mmol/L Carbon Dioxide 28.4 (21.0-32.0) mmol/L Anion Gap 13.4 BUN 17.0 (7.0-18.0) mg/dL Creatinine 0.95 (0.55-1.02) mg/dL Est GFR ( Amer) >60 (>=60 mL/min/1.73m^2) Est GFR (Non-Af Amer) >60 (>=60 mL/min/1.73m^2) BUN/Creatinine Ratio 17.9 Glucose 112 H (74-106) mg/dL Calcium 8.8 (8.5-10.1) mg/dL Troponin I High Sens <4.0 L (4.0-51.3) pg/mL NT-Pro-B Natriuret Pep 26.0 (<=900.0) pg/mL Discharge Plan Discharge Chief Complaint: Upper Respiratory Infection Clinical Impression: Acute exacerbation of chronic obstructive pulmonary disease (COPD) Patient Disposition: Admitted as Observation
[2025-07-20 22:40] LABS: Hematocrit 42.2 % (36.0-48.0); Hemoglobin 13.7 g/dL (12.0-16.0); Immature Granulocytes Abs Auto 0.02 10^3/uL (0.00-0.03); Immature Granulocytes Pct Auto 0.2 % (0.0-0.5); Lymphocytes Absolute Auto 1.6 10^3/uL (1.2-3.8); Mean Corpuscular HGB Conc 32.5 g/dL (29.9-35.2); Mean Corpuscular Hemoglobin 27.4 pg (26.7-34.0); Mean Corpuscular Volume 84.4 fL (81.0-99.0); Platelet Count 283 10^3/uL (150-450); Red Blood Count 5.00 10^6/uL (4.20-5.40); White Blood Count 8.6 10^3/uL (4.0-11.0)
[2025-07-20] MEDS: IPRATROPIUM/ALBUTEROL SULFATE 3 ML AMPUL.NEB IH ×2 (22:58→23:33)
[2025-07-20] MEDS: METHYLPREDNISOLONE SOD SUCC PF 125 MG/2 ML VIAL IVP (23:02)
[2025-07-20 23:05] LABS: Anion Gap 13.4; Blood Urea Nitrogen 17.0 mg/dL (7.0-18.0); Calcium 8.8 mg/dL (8.5-10.1); Carbon Dioxide 28.4 mmol/L (21.0-32.0); Chloride 102 mmol/L (98-107); Estimated GFR (African America >60 (>=60 mL/min/1.73m^2); Estimated GFR (Non-African Ame >60 (>=60 mL/min/1.73m^2); Glucose 112 mg/dL (74-106); NT Pro B Type Natriuretic Pept 26.0 pg/mL (<=900.0); Potassium 3.8 mmol/L (3.5-5.1); Sodium 140 mmol/L (136-145)
[2025-07-21] VITALS (18 sets, daily range): BP systolic 105–133; BP diastolic 58–78; PULSE 71–94; TEMP 36.4–36.9; O2SAT 89–97; BMI 20.2
--- OUTSIDE RECORDS SUMMARY | 2025-07-21 00:20 | XMS_ITS | CCD ---
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 [facility] [address] [id number] [facility] LDL Cholesterol,Calculated 89 mg/dL Normal 0-100 [facility] Comment on above: Result Comment: LDL ATP III CLASSIFICATION LDL less than 100 mg/dL Optimal LDL 100-129 mg/dL Near or above optimal LDL 130-159 mg/dL Borderline high LDL 160-189 mg/dL High LDL greater than 189 mg/dL Very high Performed By: #### L IPID, T4F, TSH3 wRFLX, [id number] #### [facility] [address] Triglyceride w/Reflex 137 mg/dL Normal 0-149 [facility] Comment on above: Result Comment: TRIG ATP III CLASSIFICATION TRIG less than 150 mg/dL Normal TRIG 150-199 mg/dL Borderline high TRIG 200-500 mg/dL High TRIG greater than 500 mg/dL Very high Standard traceable to the Center for Disease Conrtrol and Prevention (CDC) test method. Performed By: #### L IPID, T4F, TSH3 wRFLX, [id number] #### [facility] [address] [place] [address] VLDL CHOLESTEROL 27 mg/dL Normal [facility] Comment on above: Performed By: #### L IPID, T4F, TSH3 wRFLX, [id number] #### [address] Serum or plasma total choles terol/high density lipoprotein (HDL) cholesterol mass ratOrdered By: Jaquan Babin on 12-02-2024 Cholesterol.total/Chol esterol in HDL [Mass ratio] Serum or plasma total cholesterol/high density lipoprotein (HDL) cholesterol mass rat <5.0 [facility] Thyroid Stim Hormone w/Rflxo n 12-02-2024 Thyroid Stim Hormone w/Rflx 0.34 u[iU]/mL Low 0.45-5.33 [facility] Comment on above: Performed By: #### L IPID, T4F, TSH3 wRFLX, [id number] #### [facility] [address] Thyrotropin [Units/volume] i n Serum or PlasmaOrdered By: Jaquan Babin on 12-02-2024 TSH Qn Thyrotropin [Units/v olume] in Serum or Plasma Low 0.45-5.33 [facility] Thyroxine (T4) free [Mass/vo lume] in Serum or PlasmaOrdered By: Jaquan Bbain on 12-02-2024 Free T4 [Mass/Vol] Thyroxine (T4) free [Mass/volume] in Serum or Plasma 0.61-1.12 [facility] Triglyceride [Mass/volume] i n Serum or PlasmaOrdered By: Jaquan Babin on 12-02-2024 Triglyceride [Mass/Vol] Triglyceride [Mass/volume] in Serum or Plasma 0-149 [facility] Comment on above: TRIG ATP III CLASSIF ICATIONTRIG less than 150 mg/dL NormalTRIG 150-199 mg/dL Borderline highTRIG 200-500 mg/dL High TRIG greater than 500 mg/dL Very highStandard traceable to the Center for Disease Conrtrol and Prevention (CDC) test method. Vitamin D 25 Hydroxy Totalon 12-02-2024 Vitamin D 25 Hydroxy Total 23.5 ng/mL Low 30-100 [facility] Comment on above: Result Comment: MARCK MIN D STATUS 25([place])VITAMIN D RANGE (ng/mL) Deficient <20 Insufficient 20 to <30 Sufficient 30 to 100 Reference: Rhiannon Mata, Uli CLEMENTE, et al. Evaluation,treatment, and prevention of vitamin D deficiency; an Endocrine Society clinical practice guideline. JCEM. 2010; 96(7):1911-30. PERFORMED BY: [place] [address] PATHOLOGIST PANTOGRAPH WATCHER DAIANA STRANGE M.D. Performed By: #### L IPID, T4F, TSH3 wRFLX, [id number] #### [address] Vitamin D+Metabolites [Mass/ volume] in Serum or PlasmaOrdered By: Jaquan Babin on 12-02-2024 Vitamin D+Metabolites [Mass/Vol] Vitamin D+Metabolites [Mass/volume] in Serum or Plasma Low 30-100 [facility] Comment on above: VITAMIN D STATUS 25( [place])VITAMIN D RANGE (ng/mL) Deficient <20 Insufficient 20 to <30Sufficient 30 to 100Reference: Rhiannon Mata, Uli CLEMENTE, et al. Evaluation,treatment, and prevention of vitamin D deficiency; an Endocrine Society clinical practice guideline. JCEM. 2010; 96(7):1911-30. Office Visiton 11-29-2024 Follow-up visit [id number] Dariel Apodaca 1965 F Date Provider Department Center 11/29/2024 [id number], ADAM ALECIA [facility] Family History Problem Relation Age of Onset Alzheimer's disease Father Family Status - Relation Status Age at Mother Alive Father Level of Service:64795 RI OFFICE/OUTPATIENT ESTABLISHED LOW MDM 20 MIN Normal [facility] EMG 1 Extremeityon Cts left minimal [facility] NVC 5-6 Nerveson 11-28-2024 Cts left minimal [facility] NVC 5-6 NervesOrdered By: Roberto Vargas on 11-28-2024 [facility] Work Phone: Urine Cultureon 11-26-2024 Bacteria identified Cx Nom (U) ORGANISM: Escherichia coli (O:ESCCOL) [place] Count <10,000 Aerobic VALENTE Charge (NMIC56) SUSCEPTIBILITY [...] RESISTANT TO ALL B-LACTAM DRUGS. PERFORMED BY: [place] [address] PATHOLOGIST PANTOGRAPH WATCHER DAIANA STRANGE M.D. Normal [facility] Comment on above: Performed By: #### C UU #### [address] Urine cultureOrdered By: French Amaya on 11-26-2024 Bacteria identified Cx Nom (U) Escherichia coli Abnormal [facility] XR Hand - left 3 [facility] Result: Multiple views of left hand showed fracture through the base of the 5th metacrpal to be in unchanged position and alignment with slight increase in callus formation compared to prior x-rays. There was no other acute bony process including but not limited to fracture and/or dislocation. Impression: Healing fracture base of left 5th metacarpal [facility] XR Hand - left 3 ViewsOrdere d By: Jr. Teague on 10-08-2024 [facility] Work Phone: XR Hand - left 3 [facility] Study observation (narrative) [facility] XR Hand - left [...] Healing fracture base of left 5th metacarpal [facility] XR Hand - left 3 ViewsOrdere d By: Jr. Teague on 09-18-2024 [facility] Work Phone: XR Knee [...] Impression: Healing fracture inferior pole right patella. [facility] No Panel Informationon 09-16 Radiology Study observation (narrative) [facility] XR Hand - left 3 [facility] Result: Xrays AP, LAT and OBL of the left hand performed on August 19, 2024 demonstrates callus formation at the base of the 5th Metacarpal. No other fractures noted, no swelling Impression Healing base of 5th MC fracture. Zulema Mackay [facility] [place] Radiology Study observation (narrative) [facility] XR Hand - left 3 ViewsOrdere d By: Gamaliel Jorgensen on 08-19-2024 [facility] Work Phone: XR Elbow - right 2 [facility] 1 10-13-2023 Imaging Result: Xrays AP and LAT of the right elbow performed on August 07, 2024 demonstrates no swelling, no fractures appreciated, joint congruent. Impression Unremarkable xrays of the right elbow [facility] XR Knee - right 3 [facility] Result: Xrays AP, LAT and sunrise view of the right knee performed on August 07, 2024 is unremarkable for patella fracture, the patella fracture that was seen on CT scan is not visible on todays xrays. Impression Suspected healing non displaced patella fracture [facility] [place] XR Knee - right 3 ViewsOrder ed By: Gamaliel Jorgensen on 08-13-2024 [facility] Work Phone: XR Elbow - right 2 [facility] 1 10-07-2023 Radiology Study observation (narrative) [facility] XR Knee - right 3 [facility] Study observation (narrative) [facility] XR Hand - left 3 [facility] Result: Xrays AP, LAT and OBL of the left hand performed on July 22, 2024 demonstrates healing base of the 5th MC fracture. No other fracture noted. Impressions Healing 5th MC base fracture. Zulema Mackay [facility] [place] XR Hand - left 3 ViewsOrdere d By: Gamaliel Jorgensen on 07-23-2024 [facility] Work Phone: XR Hand - left 3 [facility] Rad[facility] Study observation (narrative) [facility] XR Knee - right 3 [facility] Result: June 24, 2024 x-rays AP weight-bearing bilateral knees lateral and sunrise of the right knee demonstrate neutral alignment bilateral knees. The joint spaces are intact. No fractures are detected. Impression: No acute findings on x-rays of the right knee Ronald Jorgensen D.O. [facility] XR Knee - right 3 ViewsOrder ed By: Gamaliel Jorgensen on 06-25-2024 [facility] Work Phone: XR Knee - right 3 [facility] Rad[facility] Study observation (narrative) [facility] CNOVon 06-13-2024 CNOV Office Visit (NUMBHT ) EMIGDIO APODACA ([id number]) 1965 F [facility] Date Time Provider Department 06/13/24 12:30 PM ZOILA MONAE During your visit today, we recorded the following information about you: Pulse Blood pressure Weight Height 74/minute 107/77 46.3 kg 1.523 m Zoila Monae MD 06/13/2024 1:41 PM Signed [facility] Follow up/ Established patient visit Individuals who were included in, or assisted with the encounter were: Emigdio Rodriguezegan Zoila Monae MD Chief Complaint/Issues: Emigdio Apodaca is a 58 year old female seen in the [facility] for: Staring spells. Most [...] that she can have it done in [place] but she would rather come here. She [...] carbonate (CALT (more content not included)... [facility] EM[facility] ([id number]) 1965 F [place] Date Time Provider Department [...] Encounter Status:Closed by IVETH SALAZAR on 09/19/24 [facility] CNOVon 03-06-2024 CNOV Office Visit (NUMBHT ) EMIGDIO APODACA ([id number]) 1965 F [place] Date Time Provider Department 03/06/24 2:00 PM ZOILA MONAE During your visit today, we recorded the following information about you: Temperature Pulse Blood pressure Weight 97.2 degrees 106/minute 101/68 45 kg Height 1.535 m Zoila Monae MD 03/06/2024 3:39 PM Signed [facility] New Patient Evaluation Consulting Provider: Tony Amaya [address] [facility] [address] The patient presents with a chief complaint [...] or assisted with the encounter were: Emigdio Apodaac Partner: Bozena Monae MD Chief Complaint/Issues: Emigdio Apodaca is a 58 year old Rh female seen in the [facility] for: Cognitive evaluation and [...] for low IQ. She worked in a [employer] shop and only worked 6 months. She [...] Gait Arises (more content not included)... Normal [facility] CBC AUTO DIFFon 01-07-2023 BASO # 0.0 103/ul Normal 0.0-0.1 [facility] Comment on above: Performed By: #### C BC ####[facility] [address] [place] [address]Dr. Shahbaz Rogel Basophils/100 WBC (Bld) 0.3 % Normal 0.2-2.0 [facility] Comment on above: Performed By: #### C BC ####[facility] [address] [address]Dr. Shahbaz Rogel EO # 0.0 103/ul Normal 0.0-0.7 [facility] Comment on above: Performed By: #### C BC ####[facility] [address] [address]Dr. Shahbaz Rogel Eosinophils/100 WBC (Bld) 0.0 % Critically low 0.9-7.0 [facility] Comment on above: Performed By: #### C BC ####[facility] [address] [address]Dr. Shahbaz Rogel Erythrocyte distribution width (RBC) [Ratio] 13.5 % Normal 11.0-15.0 [facility] Comment on above: Performed By: #### C BC ####[facility] [address] [address]Dr. Shahbaz Rogel Hematocrit (Bld) [Volume fraction] 36.4 % Normal 36.0-48.0 [facility] Comment on above: Performed By: #### C BC ####[facility] [address] [place] [id number]. Shahbaz Rogel Hemoglobin (Bld) [Mass/Vol] 11.6 g/dL Critically low 12.0-16.0 [facility] Comment on above: Performed By: #### C BC ####[facility] [address] [place] [id number]. Shahbaz Rogel IG # 0.06 10e3/ul Critically high 0.00-0.03 [facility] Comment on above: Performed By: #### C BC ####[facility] [address] [place] [address]Dr. Shahbaz Rogel IG % 1.5 % Critically high 0.0-0.5 [facility] Comment on above: Performed By: #### C BC ####[facility] [address] [place] [address]Dr. Shahbaz Rogel LYMPH # 0.7 103/ul Critically low 1.2-3.8 [facility] Comment on above: Performed By: #### C BC ####[facility] [address] [place] [address]Dr. Shahbaz Rogel Lymphocytes/100 WBC (Bld) 16.6 % Critically low 20.5-60.0 [facility] Comment on above: Performed By: #### C BC ####[facility] [address] [place] [address]Dr. Shahbaz Rogel MANUAL DIFF REQ NO Normal [facility] Comment on above: Performed By: #### C BC ####[facility] [address] [place], [place] [address]Dr. Shahbaz Rogel MCH (RBC) [Entitic mass] 27.6 pg Normal 26.7-34.0 [facility] Comment on above: Performed By: #### C BC ####[facility] [address] [place], [place] [address]Dr. Shahbaz Rogel MCHC (RBC) [Mass/Vol] 31.9 g/dL Normal 29.9-35.2 [facility] Comment on above: Performed By: #### C BC ####[facility] [address] [place] [id number]. Shahbaz Rogel MCV (RBC) [Entitic vol] 86.5 fL Normal 81.0-99.0 [facility] Comment on above: Performed By: #### C BC ####[facility] [address] [place] [address]Dr. Shahbaz Rogel MONO # 0.2 103/ul Critically low 0.3-0.8 [facility] Comment on above: Performed By: #### C BC ####[facility] [address] [place] [address]Dr. Shahbaz Rogel Monocytes/100 WBC (Bld) 5.0 % Normal 1.7-12.0 [facility] Comment on above: Performed By: #### C BC ####[facility] [address] [place], [place] [address]Dr. Shahbaz Rogel NEUT # 3.1 103/ul Normal 1.4-6.5 [facility] Comment on above: Performed By: #### C BC ####[facility] [address] [place], [place] [address]Dr. Shahbaz Rogel Neutrophils/100 WBC (Bld) 76.6 % Critically high 43.0-75.0 [facility] Comment on above: Performed By: #### C BC ####[facility] [address] [place], [place] [address]Dr. Shahbaz Rogel Platelet mean volume (Bld) [Entitic vol] 9.9 fL Normal 9.5-13.5 [facility] Comment on above: Performed By: #### C BC ####[facility] [address] [place], [place] [id number]. Shahbaz Rogel PLT 194 103/ul Normal 150-450 [facility] Comment on above: Performed By: #### C BC ####[facility] [address] [place], [place] [address]Dr. Shahbaz Juan F RBC 4.21 106/ul Normal 4.20-5.40 [facility] Comment on above: Performed By: #### C BC ####[facility] [address] [place] [address]Dr. Shahbaz Rogel WBC 4.0 103/ul Normal 4.0-11.0 [facility] Comment on above: Performed By: #### C BC ####[facility] [address] [place] [address]Dr. Shahbaz Rogel PROF CHEM 8 (BAS METB)on Anion gap [Moles/Vol] 9.5 mmol/L Normal [facility] Comment on above: Performed By: #### B MP ####[facility] [address] [place], [place] [address]Dr. Shahbaz Rogel Calcium [Mass/Vol] 8.8 mg/dL Normal 8.5-10.1 [facility] Comment on above: Performed By: #### B MP ####[facility] [address] [place], [place] [address]Dr. Shahbaz Rogel Chloride [Moles/Vol] 106 mmol/L Normal 98-107 [facility] Comment on above: Performed By: #### B MP ####[facility] [address] [place], [place] [address]Dr. Shahbaz Rogel CO2 [Moles/Vol] 29.6 mmol/L Normal 21.0-32.0 [facility] Comment on above: Performed By: #### B MP ####[facility] [address] [place], [place] [address]Dr. Shahbaz Rogel Creatinine [Mass/Vol] 0.80 mg/dL Normal 0.55-1.02 [facility] Comment on above: Performed By: #### B MP ####[facility] [address] [place], [place] [id number]. Shahbaz Rogel EGFR-AF MARSHALLESE >60 Normal >=60 [facility] Comment on above: Performed By: #### B MP ####[facility] [address] [place], [place] [address]Dr. Shahbaz Rogel EGFR-NON AF MARSHALLESE >60 Normal >=60 [facility] Comment on above: Performed By: #### B MP ####[facility] [address] [place], [place] [address]Dr. Shahbaz Juan F Glucose [Mass/Vol] 137 mg/dL Critically high 74-106 T [facility] Comment on above: Performed By: #### B MP ####[facility] [address] [place], [place] [address]Dr. Shahbaz Rogel Potassium [Moles/Vol] 4.1 mmol/L Normal 3.5-5.1 [facility] Comment on above: Performed By: #### B MP ####[facility] [address] [place], [place] [address]Dr. Lilajarrod Rogel Sodium [Moles/Vol] 141 mmol/L Normal 136-145 [facility] Comment on above: Performed By: #### B MP ####[facility] Afpfqhcdaz4[address] [place], [place] [address]Dr. Shahbaz Juan F Urea nitrogen [Mass/Vol] 18.0 mg/dL Normal 7.0-18.0 [facility] Comment on above: Performed By: #### B MP ####[facility] Tajidyqxdi[address] [place], [place] [address]Dr. Shahbaz Rogel Urea nitrogen/Creatinine [Mass ratio] 22.5 mg/mg Normal [facility] Comment on above: Performed By: #### B MP ####[facility] Usjxlryqnv7[address] [place], [place] [address]Dr. Shahbaz Juan F CBC AUTO DIFFon 01-06-2023 BASO # 0.0 103/ul Normal 0.0-0.1 [facility] Comment on above: Performed By: #### C BC ####[facility] Dhyroobpzw17[address] [place], [place] [address]Dr. Shahbaz Rogel Basophils/100 WBC (Bld) 0.0 % Critically low 0.2-2.0 [facility] Comment on above: Performed By: #### C BC ####[facility] Bnugkjxqpw5[address] [place], [place] [address]Dr. Shahbaz Rogel EO # 0.0 103/ul Normal 0.0-0.7 [facility] Comment on above: Performed By: #### C BC ####[facility] Trbfcgqkgy5726[address] [place], [place] [address]Dr. Shahbaz Rogel Eosinophils/100 WBC (Bld) 0.0 % Critically low 0.9-7.0 [facility] Comment on above: Performed By: #### C BC ####[facility] Ipbqdinhve750[address] [place], [place] [address]Dr. Shahbaz Rogel Erythrocyte distribution width (RBC) [Ratio] 13.8 % Normal 11.0-15.0 [facility] Comment on above: Performed By: #### C BC ####[facility] Coycheltlw7417[address] [place], [place] [address]Dr. Shahbaz Rogel Hematocrit (Bld) [Volume fraction] 36.9 % Normal 36.0-48.0 [facility] Comment on above: Performed By: #### C BC ####[facility] Pbmeodmqjh3790[address] [place], [place] [address]Dr. Shahbaz Rogel Hemoglobin (Bld) [Mass/Vol] 11.8 g/dL Critically low 12.0-16.0 [facility] Comment on above: Performed By: #### C BC ####[facility] Lhmvursgpu[address] [place], [place] [address]Dr. Shahbaz Rogel IG # 0.04 10e3/ul Critically high 0.00-0.03 [facility] Comment on above: Performed By: #### C BC ####[facility] Mniimdptdg737[address] [place], [place] [address]Dr. Shahbaz Rogel IG % 1.1 % Critically high 0.0-0.5 The [facility] Comment on above: Performed By: #### C BC ####[facility] Sftojfjjrb7833[address] [place], [place] [address]Dr. Shahbaz Rogel LYMPH # 0.5 103/ul Critically low 1.2-3.8 The [facility] Comment on above: Performed By: #### C BC ####[facility] Obaidsfihc5718[address] [place], [place] [address]Dr. Shahbaz Rogel Lymphocytes/100 WBC (Bld) 13.9 % Critically low 20.5-60.0 [facility] Comment on above: Performed By: #### C BC ####[facility] Ovqtvqsnfj04[address] [place] [id number]. Shahbaz Rogel MANUAL DIFF REQ NO Normal [facility] Comment on above: Performed By: #### C BC ####[facility] Gtbjbhofva9649 [place] [id number]. Shahbaz Rogel MCH (RBC) [Entitic mass] 27.8 pg Normal 26.7-34.0 [facility] Comment on above: Performed By: #### C BC ####[facility] Awhibbqlke[address] [place] [address]Dr. Shahbaz Rogel MCHC (RBC) [Mass/Vol] 32.0 g/dL Normal 29.9-35.2 [facility] Comment on above: Performed By: #### C BC ####[facility] Otsjbbgaiy8[address] [place] [address]Dr. Shahbaz Rogel MCV (RBC) [Entitic vol] 86.8 fL Normal 81.0-99.0 [facility] Comment on above: Performed By: #### C BC ####[facility] Fcumwdqfqj4569 [place] [address]Dr. Shahbaz Juan F MONO # 0.1 103/ul Critically low 0.3-0.8 The [facility] Comment on above: Performed By: #### C BC ####[facility] Ahmotkhgth95[address] [place], [place] [address]Dr. Shahbaz Juan F Monocytes/100 WBC (Bld) 3.7 % Normal 1.7-12.0 [facility] Comment on above: Performed By: #### C BC ####[facility] Euscbfbdhk4516 [place] [address]Dr. Shahbaz Rogel NEUT # 3.1 103/ul Normal 1.4-6.5 [facility] Comment on above: Performed By: #### C BC ####[facility] Uvkjajldpr5364[address] [place], [place] [address]Dr. Shahbaz Rogel Neutrophils/100 WBC (Bld) 81.3 % Critically high 43.0-75.0 [facility] Comment on above: Performed By: #### C BC ####[facility] Ggkdothjmn6495 [place] [address]Dr. Lilajarrod Juan F Platelet mean volume (Bld) [Entitic vol] 9.8 fL Normal 9.5-13.5 [facility] Comment on above: Performed By: #### C BC ####[facility] Ncojzilitf6185 [place] [address]Dr. Shahbaz Rogel PLT 184 103/ul Normal 150-450 [facility] Comment on above: Performed By: #### C BC ####[facility] Wyspnhyjxw2656 [place] [address]Dr. Shahbaz Rogel RBC 4.25 106/ul Normal 4.20-5.40 [facility] Comment on above: Performed By: #### C BC ####[facility] Mtwvepzmpr9513 [place] [address]Dr. Shahbaz Rogel WBC 3.8 103/ul Critically low 4.0-11.0 [facility] Comment on above: Performed By: #### C BC ####[facility] Uoorgjftpv4768[address] [place], [place] [address]Dr. Shahbaz Rogel PROF CHEM 8 (BAS METB)on Anion gap [Moles/Vol] 9.2 mmol/L Normal [facility] Comment on above: Performed By: #### B MP ####[facility] Aytzwlqxpg6674[address] [place], [place] [address]Dr. Shahbaz Rogel Calcium [Mass/Vol] 8.6 mg/dL Normal 8.5-10.1 [facility] Comment on above: Performed By: #### B MP ####[facility] Hxxfgsycze1865 [place] [address]Dr. Shahbaz Rogel Chloride [Moles/Vol] 107 mmol/L Normal 98-107 [facility] Comment on above: Performed By: #### B MP ####[facility] Exahvelgpv5696 [place] [address]Dr. Shahbaz Rogel CO2 [Moles/Vol] 29.3 mmol/L Normal 21.0-32.0 [facility] Comment on above: Performed By: #### B MP ####[facility] Mcmkzjooqy5213 [place] [address]Dr. Shahbaz Rogel Creatinine [Mass/Vol] 0.79 mg/dL Normal 0.55-1.02 [facility] Comment on above: Performed By: #### B MP ####[facility] Kepudcimhc7042 [place] [address]Dr. Shahbaz Rogel EGFR-AF MARSHALLESE >60 Normal >=60 [facility] Comment on above: Performed By: #### B MP ####[facility] Zyutqzifxg3782 [place] [address]Dr. Shahbaz Rogel EGFR-NON AF MARSHALLESE >60 Normal >=60 [facility] Comment on above: Performed By: #### B MP ####[facility] Jaepeiqdcp8626[address] [place], [place] [address]Dr. Shahbaz Rogel Glucose [Mass/Vol] 159 mg/dL Critically high 74-106 [facility] Comment on above: Performed By: #### B MP ####[facility] Nxldmdfcga280[address] [place], [place] [address]Dr. Lilajarrod Juan F Potassium [Moles/Vol] 3.5 mmol/L Normal 3.5-5.1 [facility] Comment on above: Performed By: #### B MP ####[facility] Dkqkdbdvbl2398[address] [place], [place] [address]Dr. Lilajarrod Juan F Sodium [Moles/Vol] 142 mmol/L Normal 136-145 [facility] Comment on above: Performed By: #### B MP ####[facility] Qfgjfoyyfs7[address] [place], [place] [address]Dr. Lilajarrod Juan F Urea nitrogen [Mass/Vol] 21.0 mg/dL Critically high 7.0-18.0 [facility] Comment on above: Performed By: #### B MP ####[facility] Bhvvybsgms6[address] [place], [place] [address]Dr. Lilajarrod Juan F Urea nitrogen/Creatinine [Mass ratio] 26.6 mg/mg Normal [facility] Comment on above: Performed By: #### B MP ####[facility] Wccffghxpc8[address] [place], [place] [address]Dr. Shahbaz Juan F XR CHEST 2 Von 01-06-2023 XR CHEST 2 V Normal [facility] CBC AUTO DIFFon 01-05-2023 BASO # 0.0 103/ul Normal 0.0-0.1 [facility] Comment on above: Performed By: #### C BC ####[facility] Ddehzbgudo0297 [place] [address]Dr. Shahbaz Rogel Basophils/100 WBC (Bld) 0.2 % Normal 0.2-2.0 [facility] Comment on above: Performed By: #### C BC ####[facility] Vktasbtcuu6392 [place] [address]Dr. Shahbaz Rogel EO # 0.0 103/ul Normal 0.0-0.7 [facility] Comment on above: Performed By: #### C BC ####[facility] Joecfssvdn0930 [place] [address]Dr. Shahbaz Rogel Eosinophils/100 WBC (Bld) 0.0 % Critically low 0.9-7.0 [facility] Comment on above: Performed By: #### C BC ####[facility] Ltblczpfgp6425[address] [place], [place] [address]Dr. Lilajarrod Rogel Erythrocyte distribution width (RBC) [Ratio] 13.6 % Normal 11.0-15.0 [facility] Comment on above: Performed By: #### C BC ####[facility] Gxstgbbgnm[address] [place], [place] [address]Dr. Shahbaz Rogel Hematocrit (Bld) [Volume fraction] 36.6 % Normal 36.0-48.0 [facility] Comment on above: Performed By: #### C BC ####[facility] Korycmjydx2094 [place] [address]Dr. Shahbaz Rogel Hemoglobin (Bld) [Mass/Vol] 11.6 g/dL Critically low 12.0-16.0 [facility] Comment on above: Performed By: #### C BC ####[facility] Dqlgprpxcc2025 [place] [address]Dr. Shahbaz Rogel IG # 0.03 10e3/ul Normal 0.00-0.03 [facility] Comment on above: Performed By: #### C BC ####[facility] Ovjcrwncds4027 [place] [address]Dr. Shahbaz Rogel IG % 0.5 % Normal 0.0-0.5 [facility] Comment on above: Performed By: #### C BC ####[facility] Ffrergttmr1624 [place] [address]DrChne Rogel LYMPH # 0.6 103/ul Critically low 1.2-3.8 [facility] Comment on above: Performed By: #### C BC ####[facility] Ofdwcukent64[address] [place], [place] [address]Dr. Shahbaz Rogel Lymphocytes/100 WBC (Bld) 10.7 % Critically low 20.5-60.0 [facility] Comment on above: Performed By: #### C BC ####[facility] Scftnlgydr[address] [place], [place] [address]Dr. Shahbaz Rogel MANUAL DIFF REQ NO Normal [facility] Comment on above: Performed By: #### C BC ####[facility] Fkoxubouwp2223[address] [place], [place] [address]Dr. Lilajarrod Rogel MCH (RBC) [Entitic mass] 27.7 pg Normal 26.7-34.0 [facility] Comment on above: Performed By: #### C BC ####[facility] Oojtypynbw14[address] [place], [place] [address]Dr. Lilajarrod Rogel MCHC (RBC) [Mass/Vol] 31.7 g/dL Normal 29.9-35.2 [facility] Comment on above: Performed By: #### C BC ####[facility] Flphlugmwt[address] [place], [place] [address]DrChen Rogel MCV (RBC) [Entitic vol] 87.4 fL Normal 81.0-99.0 [facility] Comment on above: Performed By: #### C BC ####[facility] Gasnzrvoce[address] [place], [place] [address]DrChen Rogel MONO # 0.1 103/ul Critically low 0.3-0.8 [facility] Comment on above: Performed By: #### C BC ####[facility] Mnyodwvkcv2205 [place] [address]Dr. Shahbaz Rogel Monocytes/100 WBC (Bld) 2.5 % Normal 1.7-12.0 [facility] Comment on above: Performed By: #### C BC ####[facility] Qcupcqfkdp4546 [place] [address]Dr. Shahbaz Rogel NEUT # 4.8 103/ul Normal 1.4-6.5 [facility] Comment on above: Performed By: #### C BC ####[facility] Aldjjqxhjf1416 [place] [address]Dr. Shahbaz Rogel Neutrophils/100 WBC (Bld) 86.1 % Critically high 43.0-75.0 [facility] Comment on above: Performed By: #### C BC ####[facility] Rattjnoajb5262 [place] [address]Dr. Shahbaz Rogel Platelet mean volume (Bld) [Entitic vol] 10.0 fL Normal 9.5-13.5 [facility] Comment on above: Performed By: #### C BC ####[facility] Kxcmyqjyhh8559 [place] [address]Dr. Shahbaz Rogel PLT 193 103/ul Normal 150-450 [facility] Comment on above: Performed By: #### C BC ####[facility] Vuquyhwgbs5974 [place] [address]Dr. Shahbaz Rogel RBC 4.19 106/ul Critically low 4.20-5.40 [facility] Comment on above: Performed By: #### C BC ####[facility] Skwmcfkrvx1613 [place] [address]Dr. Shahbaz Rogel WBC 5.6 103/ul Normal 4.0-11.0 [facility] Comment on above: Performed By: #### C BC ####[facility] Swhfisdgzi0444 [place] [address]DrChen Lilajarrod Rogel PROF CHEM 8 (BAS METB)on Anion gap [Moles/Vol] 12.7 mmol/L Normal Th e [facility] Comment on above: Performed By: #### B MP ####[facility] Mungynfckh5138 [place] [address]Dr. Shahbaz Rogel Calcium [Mass/Vol] 8.8 mg/dL Normal 8.5-10.1 [facility] Comment on above: Performed By: #### B MP ####[facility] Zkqetchpbx1584 [place] [address]Dr. Shahbaz Rogel Chloride [Moles/Vol] 107 mmol/L Normal 98-107 [facility] Comment on above: Performed By: #### B MP ####[facility] Giaqbuvzds4908 [place] [address]Dr. Shahbaz Rogel CO2 [Moles/Vol] 26.9 mmol/L Normal 21.0-32.0 [facility] Comment on above: Performed By: #### B MP ####[facility] Ucwoypwojd5357[address] [place], [place] [address]Dr. Shahbaz Rogel Creatinine [Mass/Vol] 0.81 mg/dL Normal 0.55-1.02 [facility] Comment on above: Performed By: #### B MP ####[facility] Rtmqcrqtqx2375[address] [place], [place] [address]Dr. Shahbaz Rogel EGFR-AF MARSHALLESE >60 Normal >=60 [facility] Comment on above: Performed By: #### B MP ####[facility] Fvgahxgyvi6497 [place] [address]Dr. Shahbaz Rogel EGFR-NON AF MARSHALLESE >60 Normal >=60 [facility] Comment on above: Performed By: #### B MP ####[facility] Aflwtfzmui1616 [place] [address]Dr. Shahbaz Rogel Glucose [Mass/Vol] 144 mg/dL Critically high 74-106 [facility] Comment on above: Performed By: #### B MP ####[facility] Kgjsohtojx7831 [place] [address]Dr. Shahbaz Rogel Potassium [Moles/Vol] 3.6 mmol/L Normal 3.5-5.1 [facility] Comment on above: Performed By: #### B MP ####[facility] Gykesgbkoe1604 [place] [address]Dr. Shahbaz Rogel Sodium [Moles/Vol] 143 mmol/L Normal 136-145 [facility] Comment on above: Performed By: #### B MP ####[facility] Pbpizpsknb0836 [place] [address]Dr. Shahbaz Rogel Urea nitrogen [Mass/Vol] 20.0 mg/dL Critically high 7.0-18.0 [facility] Comment on above: Performed By: #### B MP ####[facility] Vzwtnzwieq209[address] [place], [place] [address]Dr. Shahbaz Rogel Urea nitrogen/Creatinine [Mass ratio] 24.7 mg/mg Normal [facility] Comment on above: Performed By: #### B MP ####[facility] Jhoskevbns228[address] [place], [place] [address]Dr. Shahbaz Juan F CBC W MANUAL DIFFon 01-05-20 23 ATYPICAL LYMPH # Normal [facility] Comment on above: Performed By: #### C BCMAN ####[facility] Xeuuzrtdqo5820[address] [place], [place] [address]Dr. Shahbaz Rogel ATYPICAL LYMPH % Normal [facility] Comment on above: Performed By: #### C BCMAN ####[facility] Gqdiifaxtm[address] [place], [place] [address]Dr. Shahbaz Rogel BAND # 0.0 103/ul Normal 0.0-0.3 [facility] Comment on above: Performed By: #### C BCMAN ####[facility] Upoykbxvmb724[address] [place], [place] [address]Dr. Shahbaz Rogel BAND % 0 % Normal 0-5 [facility] Comment on above: Performed By: #### C BCMAN ####[facility] Igjdknpprm9[address] [place], [place] [address]Dr. Lilajarrod Rogel BASOM # 0.00 103/ul Normal 0.00-0.10 [facility] Comment on above: Performed By: #### C BCMAN ####[facility] Zrovftrcly9934[address] [place], [place] [address]Dr. Shahbaz Rogel BASOM % 0.0 % Critically low 0.2-2.0 [facility] Comment on above: Performed By: #### C BCMAN ####[facility] Praubyyqhg6139 [place] [address]Dr. Shahbaz Rogel BLAST # Normal [facility] Comment on above: Performed By: #### C BCMAN ####[facility] Lqwhdaohcu2890 [place] [address]Dr. Shahbaz Rogel BLAST % Normal [facility] Comment on above: Performed By: #### C BCMAN ####[facility] Cvyogeswyo3573 [place] [address]Dr. Shahbaz Rogel CORRECTED WBC Normal 4.0-11.0 [facility] Comment on above: Performed By: #### C BCMAN ####[facility] Iewksungnu8195[address] [place], [place] [address]Dr. Shahbaz Rogel EOS # 0.00 103/ul Normal 0.00-0.70 [facility] Comment on above: Performed By: #### C BCMAN ####[facility] Brpprvwzdp944[address] [place], [place] [address]Dr. Shahbaz Rogel EOS% 0.0 % Critically low 0.9-7.0 [facility] Comment on above: Performed By: #### C BCMAN ####[facility] Yncyrjsbyk2190[address] [place], [place] [address]Dr. Shahbaz Rogel HCT 36.5 % Normal 36.0-48.0 [facility] Comment on above: Performed By: #### C BCMAN ####[facility] Tlwhgtzdte2105[address] [place], [place] [address]Dr. Shahbaz Rogel HGB 11.8 g/dl Critically low 12.0-16.0 [facility] Comment on above: Performed By: #### C BCMAN ####[facility] Wkevfidjfs4[address] [place], [place] [address]Dr. Shahbaz Rogel LYMPHM # 0.42 103/ul Critically low 1.20-3.80 [facility] Comment on above: Performed By: #### C BCMAN ####[facility] Mugzqjavtx0363 [place] [address]Dr. Shahbaz Rogel LYMPHM% 12.0 % Critically low 20.5-60.0 [facility] Comment on above: Performed By: #### C CAIN ####[facility] Oxooinfgqf9384 [place] [address]Dr. Shahbaz Rogel MCH 28.0 pg Normal 26.7-34.0 [facility] Comment on above: Performed By: #### C CAIN ####[facility] Xpujqjjlxi0487 [place] [address]Dr. Shahbaz Rogel MCHC 32.3 g/dl Normal 29.9-35.2 [facility] Comment on above: Performed By: #### C CAIN ####[facility] Karshgnlas86[address] [place], [place] [address]Dr. Shahbaz Rogel MCV 86.7 fL Normal 81.0-99.0 [facility] Comment on above: Performed By: #### C CAIN ####[facility] Tjzvebxcsz24[address] [place], [place] [address]Dr. Shahbaz Rogel METAMYELOCYTE # Normal [facility] Comment on above: Performed By: #### C CAIN ####[facility] Sozhpvbyii869[address] [place], [place] [address]Dr. Shahbaz Rogel METAMYELOCYTE % Normal [facility] Comment on above: Performed By: #### C CAIN ####[facility] Evscjhanaj[address] [place], [place] [address]Dr. Shahbaz Rogel MONOM# 0.07 103/ul Critically low 0.30-0.80 [facility] Comment on above: Performed By: #### C CAIN ####[facility] Orhadjnwcf6864 [place] [address]Dr. Shahbaz Rogel MONOM% 2.0 % Normal 1.7-12.0 [facility] Comment on above: Performed By: #### C CAIN ####[facility] Abiwbgnxxf2576 [place] [address]Dr. Shahbaz Rogel MPV 9.9 fL Normal 9.5-13.5 [facility] Comment on above: Performed By: #### C BCBRICE ####[facility] Gcrqgnfmdo1166 [place] [address]Dr. Shahbaz Rogel MYELOCYTE # Normal [facility] Comment on above: Performed By: #### C CAIN ####[facility] Mmjmesrxek6656 [place] [address]Dr. Shahbaz Rogel MYELOCYTE % Normal [facility] Comment on above: Performed By: #### C BCBRICE ####[facility] Yhefbzfmib9567 [place] [address]Dr. Shahbaz Rogel NRBC Normal [facility] Comment on above: Performed By: #### C CAIN ####[facility] Aritfxxlur4754 [place] [address]Dr. Shahbaz Rogel PLT 178 103/ul Normal 150-450 [facility] Comment on above: Performed By: #### C CAIN ####[facility] Esorvixqrt4408 [place] [address]Dr. Shahbaz Rogel RBC 4.21 106/ul Normal 4.20-5.40 [facility] Comment on above: Performed By: #### C CAIN ####[facility] Uxfahbbnsi8154 [place] [address]Dr. Shahbaz Rogel RDW 13.2 % Normal 11.0-15.0 [facility] Comment on above: Performed By: #### C CAIN ####[facility] [address]vcflakuw[address] [place], [place] [address]Dr. Shahbaz Rogel SEG # 3.01 103/ul Normal 1.40-6.50 [facility] Comment on above: Performed By: #### C CAIN ####[facility] Pntppcpist6102 [place] [address]Dr. Shahbaz Rogel SEG % 86.0 % Critically high 43.0-75.0 [facility] Comment on above: Performed By: #### C CAIN ####[facility] Siblyieprg0625 [place] [address]Dr. Shahbaz Rogel WBC 3.5 103/ul Critically low 4.0-11.0 [facility] Comment on above: Performed By: #### C BCMAN ####[facility] Ljbottblxf0452 [place] [address]Dr. Shahbaz Rogel PROF CHEM 8 (BAS METB)on Anion gap [Moles/Vol] 10.5 mmol/L Normal Th [facility] Comment on above: Performed By: #### B MP ####[facility] Xnkvfeiiem5[address] [place], [place] [address]Dr. Shahbaz Rogel Calcium [Mass/Vol] 8.7 mg/dL Normal 8.5-10.1 [facility] Comment on above: Performed By: #### B MP ####[facility] Elwfgfxlmc[address] [place], [place] [address]Dr. Shahbaz Rogel Chloride [Moles/Vol] 108 mmol/L Critically high 98-107 [facility] Comment on above: Performed By: #### B MP ####[facility] Hobhaatyqd77[address] [place], [place] [address]Dr. Shahbaz Rogel CO2 [Moles/Vol] 25.2 mmol/L Normal 21.0-32.0 [facility] Comment on above: Performed By: #### B MP ####[facility] Xwxayewqvc8[address] [place], [place] [address]Dr. Shahbaz Rogel Creatinine [Mass/Vol] 0.77 mg/dL Normal 0.55-1.02 [facility] Comment on above: Performed By: #### B MP ####[facility] Zaiiaohwvg[address] [place], [place] [address]Dr. Shahbaz Rogel EGFR-AF MARSHALLESE >60 Normal >=60 [facility] Comment on above: Performed By: #### B MP ####[facility] Kckhzenpwj[address] [place], [place] [address]Dr. Shahbaz Rogel EGFR-NON AF MARSHALLESE >60 Normal >=60 [facility] Comment on above: Performed By: #### B MP ####[facility] Jrglmltznl38[address] [place], [place] [address]Dr. Shahbaz Rogel Glucose [Mass/Vol] 169 mg/dL Critically high 74-106 [facility] Comment on above: Performed By: #### B MP ####[facility] [facility] [address] [place], [place] [address]Dr. Shahbaz Rogel Potassium [Moles/Vol] 3.7 mmol/L Normal 3.5-5.1 [facility] Comment on above: Performed By: #### B MP ####[facility] Zisxjlpbce[address] [place], [place] [address]Dr. Shahbaz Rogel Sodium [Moles/Vol] 140 mmol/L Normal 136-145 [facility] Comment on above: Performed By: #### B MP ####[facility] Wujdfulzye298[address] [place], [place] [address]Dr. Shahbaz Rogel Urea nitrogen [Mass/Vol] 14.0 mg/dL Normal 7.0-18.0 [facility] Comment on above: Performed By: #### B MP ####[facility] Ccbfqnfjif[address] [place], [place] [address]Dr. Shahbaz Rogel Urea nitrogen/Creatinine [Mass ratio] 18.2 mg/mg Normal [facility] Comment on above: Performed By: #### B MP ####[facility] Bcdfzkootu[address] [place], [place] [address]Dr. Shahbaz Rogel RESPIRATORY PANEL PLUSon Adenovirus Not detected Normal NOT DETECTED [facility] Comment on above: Performed By: #### R SPLUS ####[facility] Bjkankpumg[address] [place], [place] [address]Dr. Shahbaz Rogel B. Parapertusis Not detected Normal NOT DETECTED [facility] Comment on above: Performed By: #### R SPLUS ####[facility] Fmcddcdhal[address] [place], [place] [address]Dr. Shahbaz Rogel B. Pertussis Not detected Normal NOT DETECTED [facility] Comment on above: Performed By: #### R SPLUS ####[facility] Djqvchlyig234[address] [place], [place] [address]Dr. Shahbaz Rogel Chlamydia Pneumoniae Not detected Normal NOT DETECTED [facility] Comment on above: Performed By: #### R SPLUS ####[facility] Nuacvcemwg7674[address] [place], [place] [address]Dr. Shahbaz Rogel Coronavirus 229E Not detected Normal NOT DETECTED [facility] Comment on above: Performed By: #### R SPLUS ####[facility] [address] [place] [address]Dr. Shahbaz [facility] Coronavirus HKU1 Not detected Normal NOT DETECTED [facility] Comment on above: Performed By: #### R SPLUS ####[facility] Jymvxhzftc[address] [place] [address]Dr. Shahbaz [facility] Coronavirus NL63 Not detected Normal NOT DETECTED [facility] Comment on above: Performed By: #### R SPLUS ####[facility] Iqleqremxa[address] [place], [place] [address]Dr. Shahbaz [facility] Coronavirus OC43 Not detected Normal NOT DETECTED [facility] Comment on above: Performed By: #### R SPLUS ####[facility] Sknfoksdph8[address] [place], [place] [address]Dr. Shahbaz Rogel Influenza A H1 Not detected Normal NOT DETECTED [facility] Comment on above: Performed By: #### R SPLUS ####[facility] Mczhhtqgid16[address] [place], [place] [address]Dr. Shahbaz Rogel Influenza A H1 2009 Not detected Normal NOT DETECTED [facility] Comment on above: Performed By: #### R SPLUS ####[facility] Oxdavbvhfp3084[address] [place], [place] [address]Dr. Shahbaz [facility] Influenza A H3 Not detected Normal NOT DETECTED [facility] Comment on above: Performed By: #### R SPLUS ####[facility] Qrtipkvlid387[address] [place], [place] [address]Dr. Shahbaz Rogel Influenza B Not detected Normal NOT DETECTED [facility] Comment on above: Performed By: #### R SPLUS ####[facility] Psvsnrvotf66[address] [place], [place] [address]Dr. Shahbaz Rogel Metapneumovirus Detected Abnormal NOT DETECTED [facility] Comment on above: Performed By: #### R SPLUS ####[facility] Zhhnwagckz5110[address] [place], [place] [address]Dr. Shahbaz Rogel Mycoplas. Pneumoniae Not detected Normal NOT DETECTED [facility] Comment on above: Performed By: #### R SPLUS ####[facility] Obtwvydwsb[address] [place], [place] [address]Dr. Shahbaz Rogel Parainfluenza 1 Not detected Normal NOT DETECTED [facility] Comment on above: Performed By: #### R SPLUS ####[facility] Ffmpzbiwkp29[address] [place], [place] [address]Dr. Shahbaz Rogel Parainfluenza 2 Not detected Normal NOT DETECTED [facility] Comment on above: Performed By: #### R SPLUS ####[facility] Rbhpahxihc3924[address] [place], [place] [address]Dr. Shahbaz Rogel Parainfluenza 3 Not detected Normal NOT DETECTED [facility] Comment on above: Performed By: #### R SPLUS ####[facility] Mgckgmndms8534[address] [place], [place] [address]Dr. Shahbaz Rogel Parainfluenza 4 Not detected Normal NOT DETECTED [facility] Comment on above: Performed By: #### R SPLUS ####[facility] Ovwsvtaxus9[address] [place], [place] [address]Dr. Shahbaz Rogel Rhino/Enterovirus Not detected Normal NOT DETECTED [facility] Comment on above: Performed By: #### R SPLUS ####[facility] Efrgpekjqb180[address] [place], [place] [address]Dr. Shahbaz Rogel RP2 Header 1 RESPIRATORY PANEL: VIRUSES Normal [facility] Comment on above: Performed By: #### R SPLUS ####[facility] Yqbkkbaqtv[address] [place], [place] [address]Dr. Shahbaz Rogel RP2 Header 2 RESPIRATORY PANEL: BACTERIA Normal [facility] Comment on above: Performed By: #### R SPLUS ####[facility] Pvsdidievp8826[address] [place], [place] [address]Dr. Shahbaz Rogel RSV Not detected Normal NOT DETECTED [facility] Comment on above: Performed By: #### R SPLUS ####[facility] Jhuqdxogku819[address] [place], [place] [address]Dr. Shahbaz Rogel SARS-CoV-2 (COVID-19) RNA PAVAN+probe Ql (Unsp spec) Not detected Normal NOT DETECTED [facility] Comment on above: Performed By: #### R SPLUS ####[facility] Ulxeuoktzj[address] [place] [address]Dr. Shahbaz Juan F CARDIAC ROSALINA 3-6on 3 CK [Catalytic activity/Vol] 148 U/L Normal 26-192 [facility] Comment on above: Performed By: #### C MREP ####[facility] Uqzckjemxf[address] [place] [address]Dr. Shahbaz Juan F CK.MB [Mass/Vol] 0.84 ng/mL Normal <=3.60 [facility] Comment on above: Performed By: #### C MREP ####[facility] Foaiscxmey50[address] [place], [place] [address]Dr. Shahbaz Rogel HSTROP 6.4 pg/mL Normal 4.0-51.3 [facility] Comment on above: Result Comment: CUT- OFF POINTS HAVE BEEN ESTABLISHED BASED ON THE FOURTH UNIVERSAL DEFINITIONS OF MYOCARDIALINFARCTION. THE UPPER REFERENCE LIMIT (URL) OF TROPONIN, DEFINED THE 99TH PERCENTILE OFcTnI DISTRIBUTION IN A REFERENCE POPULATION, HAS BEEN CONFIRMED THE DECISION THRESHOLDFOR SC DIAGNOSIS. Performed By: #### C MREP ####[facility] Vhyypengov[address] [place], [place] [address]Dr. Shahbaz Rogel CBC W MANUAL DIFFon 01-04-20 23 ATYPICAL LYMPH # Normal [facility] Comment on above: Performed By: #### C CAIN ####[facility] Hx[address]vmlmubu[address] [place], [place] [address]Dr. Shahbaz Rogel ATYPICAL LYMPH % Normal [facility] Comment on above: Performed By: #### C BCMAN ####[facility] X[address]dfdzlmv[address] [place] [address]Dr. Shahbaz Rogel BAND # 0.0 103/ul Normal 0.0-0.3 [facility] Comment on above: Performed By: #### C CAIN ####[facility] Nvjvpokbgc[address] [place], [place] [address]Dr. Shahbaz Rogel BAND % 0 % Normal 0-5 [facility] Comment on above: Performed By: #### C CAIN ####[facility] F[address]uybxjozw9[address] [place] [address]Dr. Shahbaz Rogel BASOM # 0.00 103/ul Normal 0.00-0.10 [facility] Comment on above: Performed By: #### C BCMAN ####[facility] Stopwcowau[address] [place] [address]Dr. Shahbaz Rogel BASOM % 0.0 % Critically low 0.2-2.0 [facility] Comment on above: Performed By: #### C BCMAN ####[facility] Gr[address]iv[address]wa[address] [place] [address]Dr. Shahbaz Rogel BLAST # Normal [facility] Comment on above: Performed By: #### C BCBRICE ####[facility] Stwomtnpub[address] [place] [address]Dr. Shahbaz Rogel BLAST % Normal [facility] Comment on above: Performed By: #### C CAIN ####[facility] K[address]fokjcez[address] [place], [place] [address]Dr. Shahbaz Rogel CORRECTED WBC Normal 4.0-11.0 [facility] Comment on above: Performed By: #### C CAIN ####[facility] Uxrlqqxhqi[address] [place], [place] [address]Dr. Shahbza Rogel EOS # 0.02 103/ul Normal 0.00-0.70 [facility] Comment on above: Performed By: #### C CAIN ####[facility] Azqvsthcmw6[address] [place] [address]Dr. Shahbaz Rogel EOS% 1.0 % Normal 0.9-7.0 [facility] Comment on above: Performed By: #### C BCBRICE ####[facility] Vkrhpvguft80[address] [place] [address]Dr. Shahbaz Rogel HCT 37.5 % Normal 36.0-48.0 [facility] Comment on above: Performed By: #### C BCBRICE ####[facility] Xmgpxndqhm[address] [place], [place] [address]Dr. Shahbaz Rogel HGB 12.0 g/dl Normal 12.0-16.0 [facility] Comment on above: Performed By: #### C CAIN ####[facility] S[address]ydqvavze[address] [place] [address]Dr. Shahbaz Rogel LYMPHM # 0.21 103/ul Critically low 1.20-3.80 [facility] Comment on above: Performed By: #### C CAIN ####[facility] Qkhylvjsik77[address] [place] [address]Dr. Shahbaz Rogel LYMPHM% 13.0 % Critically low 20.5-60.0 [facility] Comment on above: Performed By: #### C CAIN ####[facility] Dzwaupxpwn[address] [place] [address]Dr. Shahbaz Rogel MCH 27.8 pg Normal 26.7-34.0 [facility] Comment on above: Performed By: #### C CAIN ####[facility] Qyknvvdawl04[address] [place] [address]Dr. Shahbaz Rogel MCHC 32.0 g/dl Normal 29.9-35.2 [facility] Comment on above: Performed By: #### C CAIN ####[facility] Fprgeffsfo39[address] [place] [address]Dr. Shahbaz Rogel MCV 86.8 fL Normal 81.0-99.0 [facility] Comment on above: Performed By: #### Cheri BARLOW ####[facility] Hfupfrczsw39[address] [place] [address]Dr. Shahbaz Rogel METAMYELOCYTE # Normal [facility] Comment on above: Performed By: #### C CAIN ####[facility] Sklovdgrzh[address] [place] [address]Dr. Shahbaz Rogel METAMYELOCYTE % Normal [facility] Comment on above: Performed By: #### C CAIN ####[facility] Nac[address]ysko[address] [place] [address]Dr. Shahbaz Rogel MONOM# 0.02 103/ul Critically low 0.30-0.80 [facility] Comment on above: Performed By: #### C CAIN ####[facility] Ritbfgvbmz8[address] [place] [address]Dr. Shahbaz Rogel MONOM% 1.0 % Critically low 1.7-12.0 [facility] Comment on above: Performed By: #### C CAIN ####[facility] Scsyrsxvdp7305 [place] [address]Dr. Shahbaz Rogel MPV 9.5 fL Normal 9.5-13.5 [facility] Comment on above: Performed By: #### C CAIN ####[facility] Zbtqxytnrn4054 [place] [address]Dr. Shahbaz Rogel MYELOCYTE # Normal [facility] Comment on above: Performed By: #### C CAIN ####[facility] Crvfgnygef5372 [place] [address]Dr. Shahbaz Rogel MYELOCYTE % Normal [facility] Comment on above: Performed By: #### C CAIN ####[facility] F[address]merfeiln[address] [place], [place] [address]Dr. Shahbaz Rogel NRBC Normal [facility] Comment on above: Performed By: #### C CAIN ####[facility] Fjrugqyskj88[address] [place] [address]Dr. Shahbaz Rogel PLT 173 103/ul Normal 150-450 [facility] Comment on above: Performed By: #### C CAIN ####[facility] Hzknt[address]psu[address] [place], [place] [address]Dr. Shahbaz Rogel RBC 4.32 106/ul Normal 4.20-5.40 [facility] Comment on above: Performed By: #### C CAIN ####[facility] Fqfbtxfobl0331 [place] [address]Dr. Shahbaz Rogel RDW 13.1 % Normal 11.0-15.0 [facility] Comment on above: Performed By: #### C CAIN ####[facility] Jzjyizisf[address] [place], [place] [address]Dr. Shahbaz Rogel SEG # 1.36 103/ul Critically low 1.40-6.50 [facility] Comment on above: Performed By: #### C CAIN ####[facility] Hugkukevjd[address] [place], [place] [address]Dr. Shahbaz Rogel SEG % 85.0 % Critically high 43.0-75.0 [facility] Comment on above: Performed By: #### C CHANELMAN ####[facility] Ferkaownov22[address] [place], [place] [address]Dr. Shhabaz Rogel WBC 1.6 103/ul Critically low 4.0-11.0 [facility] Comment on above: Performed By: #### C CAIN ####[facility] Bwtdjeiglh[address] [place], [place] [address]Dr. Shahbaz Rogel CT CHEST WO CONon 01-03-2023 CT CHEST WO CON Normal [facility] ER URINE PROFILEon 3 Bilirubin Ql (U) Negative Normal NEGATIVE [facility] Comment on above: Performed By: #### E RUR ####[facility] Pxxojmzmyy186[address] [place], [place] [address]Dr. Shahbaz Rogel Clarity (U) CLEAR Normal CLEAR [facility] Comment on above: Performed By: #### E RUR ####[facility] Zjjzueiywb265[address] [place], [place] [address]Dr. Shahbaz Rogel Color (U) LT. YELLOW Normal YELLOW [facility] Comment on above: Performed By: #### E RUR ####[facility] Jdqmskfjww[address] [place], [place] [address]Dr. Shahbaz Rogel ERUAHD A micrscopic examina tion will be performed if indicated. Normal [facility] Comment on above: Performed By: #### E RUR ####[facility] Yqfkigqzdd[address] [place], [place] [address]Dr. Shahbaz Rogel Glucose Ql (U) Negative Normal NEGATIVE [facility] Comment on above: Performed By: #### E RUR ####[facility] Zjhdkklugc[address] [place], [place] [address]Dr. Shahbaz Rogel Hemoglobin Ql (U) Negative Normal NEGATIVE [facility] Comment on above: Performed By: #### E RUR ####[facility] Fjnqorhdct[address]237[address] [place], [place] [address]Dr. Shahbaz Rogel Ketones Ql (U) Negative Normal NEGATIVE [facility] Comment on above: Performed By: #### E RUR ####[facility] Hvuxvubqpm[address] [place] [address]Dr. Shahbaz Rogel LEUKOCYTES Negative Normal NEGATIVE [facility] Comment on above: Performed By: #### E RUR ####[facility] Wtbyznfyhw5798 [place] [address]Dr. Shahbaz Rogel Nitrite Ql (U) Negative Normal NEGATIVE [facility] Comment on above: Performed By: #### E RUR ####[facility] Nbsrgdldvv6[address] [place], [place] [address]Dr. Shahbaz Rogel pH (U) 6.0 [pH] Normal 5-9 [facility] Comment on above: Performed By: #### E RUR ####[facility] Jnzpbdxtlk[address] [place], [place] [address]Dr. Shahbaz Rogel SPEC GRAVITY <=1.005 Abnormal 1.005-<=1. 025 [facility] Comment on above: Performed By: #### E RUR ####[facility] Ddnwcjkcvg[address] [place], [place] [address]Dr. Shahbaz Rogel UA PROTEIN Negative Normal NEGATIVE/ TRACE [facility] Comment on above: Performed By: #### E RUR ####[facility] Pnlkysvdtx6[address] [place], [place] [address]Dr. Shahbaz Rogel UR MICRO IND NOT INDICATED Normal [facility] Comment on above: Performed By: #### E RUR ####[facility] Tswenaskwq[address]15[address] [place], [place] [address]Dr. Shahbaz Rogel Urobilinogen Qn (U) 0.2 {Melida'U}/dL Normal 0.2 - 1. 0 [facility] Comment on above: Performed By: #### E RUR ####[facility] Qpnpaukcol[address] [place], [place] [address]Dr. Shahbaz Juan F LACTATE/LACTIC ACIDon 2022 Lactate [Moles/Vol] 1.5 mmol/L Normal 0.4-2.0 [facility] Comment on above: Performed By: #### L ACT ####[facility] Xunqrokixa[address] [place] [address]Dr. Shahbaz Juan F PROF CHEM 8 (BAS METB)on Anion gap [Moles/Vol] 11.6 mmol/L Normal [facility] Comment on above: Performed By: #### B MP ####[facility] Vzctpxpulp45[address] [place] [address]Dr. Shahbaz Rogel Calcium [Mass/Vol] 8.1 mg/dL Critically low 8.5-10.1 [facility] Comment on above: Performed By: #### B MP ####[facility] Jznklkllkk46[address] [place], [place] [address]Dr. Shahbaz Rogel Chloride [Moles/Vol] 109 mmol/L Critically high 98-107 [facility] Comment on above: Performed By: #### B MP ####[facility] Omawzrngga[address] [place], [place] [address]Dr. Shahbaz Rogel CO2 [Moles/Vol] 25.2 mmol/L Normal 21.0-32.0 [facility] Comment on above: Performed By: #### B MP ####[facility] Mqbtpfrkcb[address] [place], [place] [address]Dr. Shahbaz Rogel Creatinine [Mass/Vol] 0.89 mg/dL Normal 0.55-1.02 [facility] Comment on above: Performed By: #### B MP ####[facility] Tcazrqajde01[address] [place], [place] [address]Dr. Shahbaz Rogel EGFR-AF MARSHALLESE >60 Normal >=60 [facility] Comment on above: Performed By: #### B MP ####[facility] Nszjymclyo[address] [place], [place] [address]Dr. Shahbaz Rogel EGFR-NON AF MARSHALLESE >60 Normal >=60 [facility] Comment on above: Performed By: #### B MP ####[facility] [address]njkvdbhui[address] [place], [place] [address]Dr. Shahbaz Rogel Glucose [Mass/Vol] 167 mg/dL Critically high 74-106 [facility] Comment on above: Performed By: #### B MP ####[facility] Anprcirvmx74[address] [place] [address]Dr. Shahbaz Rogel Potassium [Moles/Vol] 3.8 mmol/L Normal 3.5-5.1 [facility] Comment on above: Performed By: #### B MP ####[facility] Jtgjvacuqz87[address] [place] [address]Dr. Shahbaz Rogel Sodium [Moles/Vol] 142 mmol/L Normal 136-145 [facility] Comment on above: Performed By: #### B MP ####[facility] Uedofpijgd[address] [place], [place] [address]Dr. Shahbaz Rogel Urea nitrogen [Mass/Vol] 9.0 mg/dL Normal 7.0-18.0 [facility] Comment on above: Performed By: #### B MP ####[facility] Xetxoqllxc[address] [place], [place] [address]Dr. Shahbaz Rogel Urea nitrogen/Creatinine [Mass ratio] 10.1 mg/mg Normal [facility] Comment on above: Performed By: #### B MP ####[facility] Otyeurxkxd9097[address] [place], [place] [address]Dr. Shahbaz Rogel CARDIAC ROSALINA ADMITon 023 CK [Catalytic activity/Vol] 173 U/L Normal 26-192 [facility] Comment on above: Performed By: #### C EZEKIEL, BMP ####[facility] Ysplmfhthf[address] [place], [place] [address]Dr. Shahbaz Rogel CK.MB [Mass/Vol] 0.55 ng/mL Normal <=3.60 [facility] Comment on above: Performed By: #### C EZEKIEL, BMP ####[facility] Csorsksvnb[address] [place], [place] [address]Dr. Shahbaz Rogel HSTROP 5.9 pg/mL Normal 4.0-51.3 [facility] Comment on above: Result Comment: CUT- OFF POINTS HAVE BEEN ESTABLISHED BASED ON THE FOURTH UNIVERSAL DEFINITIONS OF MYOCARDIALINFARCTION. THE UPPER REFERENCE LIMIT (URL) OF TROPONIN, DEFINED THE 99TH PERCENTILE OFcTnI DISTRIBUTION IN A REFERENCE POPULATION, HAS BEEN CONFIRMED THE DECISION THRESHOLDFOR SC DIAGNOSIS. Performed By: #### C MADM, BMP ####[facility] Ucxeumxrih[address] [place] [id number]. Shahbaz Rogel LEN 76 ng/mL Normal 9-82 [facility] Comment on above: Performed By: #### C EMILIO FALCON ####[facility] Lkbslvozsl2214 [place] [address]Dr. Shahbaz Rogel CBC W MANUAL DIFFon 01-03-20 23 ATYPICAL LYMPH # Normal [facility] Comment on above: Performed By: #### C CAIN ####[facility] Dsloeqlvkk7[address] [place] [address]Dr. Shahbaz Rogel ATYPICAL LYMPH % Normal [facility] Comment on above: Performed By: #### C CAIN ####[facility] Aghoewpgmx[address] [place], [place] [address]Dr. Shahbaz Rogel BAND # Normal 0.0-0.3 [facility] Comment on above: Performed By: #### C CAIN ####[facility] Deeliallud[address] [place], [place] [address]Dr. Yilan Rogel BAND % Normal 0-5 [facility] Comment on above: Performed By: #### C CAIN ####[facility] Dmrkiimzwi[address] [place], [place] [address]Dr. Shahbaz Rogel BASOM # 0.00 103/ul Normal 0.00-0.10 [facility] Comment on above: Performed By: #### C CAIN ####[facility] Xbstqcmges31[address] [place] [address]Dr. Shahbaz Rogel BASOM % 0.0 % Critically low 0.2-2.0 [facility] Comment on above: Performed By: #### C CAIN ####[facility] Kgmbygnvbo73[address] [place] [address]Dr. Shahbaz Rogel BLAST # Normal [facility] Comment on above: Performed By: #### C CAIN ####[facility] Cxoqqjtzdv8189 [place] [address]Dr. Yijarrod Rogel BLAST % Normal [facility] Comment on above: Performed By: #### C CAIN ####[facility] Qhpcjhoadi5926 [place] [address]Dr. Shahbaz Rogel CORRECTED WBC Normal 4.0-11.0 [facility] Comment on above: Performed By: #### C CAIN ####[facility] Ygkyrjteji2495 [place] [address]Dr. Shahbaz Rogel EOS # 0.03 103/ul Normal 0.00-0.70 [facility] Comment on above: Performed By: #### C CAIN ####[facility] Bwykbdnsxc3754 [place] [address]Dr. Shahbaz Rogel EOS% 1.0 % Normal 0.9-7.0 [facility] Comment on above: Performed By: #### C CAIN ####[facility] Ppbbskkdoe[address] [place], [place] [address]Dr. Shahbaz Rogel HCT 42.8 % Normal 36.0-48.0 [facility] Comment on above: Performed By: #### C CAIN ####[facility] Binkiulpkq8[address] [place], [place] [address]Dr. Shahbaz Rogel HGB 14.1 g/dl Normal 12.0-16.0 [facility] Comment on above: Performed By: #### C CAIN ####[facility] Zyflgtmwgq[address] [place], [place] [address]Dr. Shahbaz Rogel LYMPHM # 0.64 103/ul Critically low 1.20-3.80 [facility] Comment on above: Performed By: #### C CAIN ####[facility] [address]jxnowjpvk[address] [place], [place] [address]Dr. Shahbaz Rogel LYMPHM% 23.0 % Normal 20.5-60.0 [facility] Comment on above: Performed By: #### C CAIN ####[facility] [address]xb[address]imk[address] [place], [place] [address]Dr. Shahbaz Rogel MCH 28.0 pg Normal 26.7-34.0 [facility] Comment on above: Performed By: #### C CAIN ####[facility] [facility] [address] [place], [place] [id number]. Shahbaz Rogel MCHC 32.9 g/dl Normal 29.9-35.2 [facility] Comment on above: Performed By: #### C CAIN ####[facility] Lfjpuqpnaj[address] [place] [id number]. Shahbaz Rogel MCV 84.9 fL Normal 81.0-99.0 [facility] Comment on above: Performed By: #### C CAIN ####[facility] Vhqmvoyoqh35[address] [place] [id number]. Shahbaz Rogel METAMYELOCYTE # Normal [facility] Comment on above: Performed By: #### C CAIN ####[facility] Swmlxccxrp90[address] [place] [id number]. Shahbaz Rogel METAMYELOCYTE % Normal [facility] Comment on above: Performed By: #### C CAIN ####[facility] U[address]wam[address] [place], [place] [id number]. Shahbaz Rogel MONOM# 0.31 103/ul Normal 0.30-0.80 [facility] Comment on above: Performed By: #### C CAIN ####[facility] Qrxwfpkveg6960 [place] [address]Dr. Shahbaz Rogel MONOM% 11.0 % Normal 1.7-12.0 [facility] Comment on above: Performed By: #### C CAIN ####[facility] Sobkcsrbrv7232 [place] [address]Dr. Shahbaz Rogel MPV 9.5 fL Normal 9.5-13.5 [facility] Comment on above: Performed By: #### C CAIN ####[facility] Ddgheotulv6862 [place] [address]Dr. Shahbaz Rogel MYELOCYTE # Normal [facility] Comment on above: Performed By: #### C CAIN ####[facility] T[address]semiicxe[address] [place], [place] [id number]. Shahbaz Rogel MYELOCYTE % Normal [facility] Comment on above: Performed By: #### C CAIN ####[facility] Hdofsnaxac[address] [place], [place] [address]Dr. Shahbaz Rogel NRBC Normal [facility] Comment on above: Performed By: #### Cheri BARLOW ####[facility] Hhgrcgfajq30[address] [place], [place] [address]Xk. Shahbaz Rogel PLT 197 103/ul Normal 150-450 [facility] Comment on above: Performed By: #### Cheri BARLOW ####[facility] Jqycopwiic8146 [place], [place] [address]Uy. Shahbaz Rogel RBC 5.04 106/ul Normal 4.20-5.40 [facility] Comment on above: Performed By: #### Chrei BARLOW ####[facility] Bhmbhedkmc1368 [place], [place] [address]Bb. Shahbaz Rogel RDW 13.2 % Normal 11.0-15.0 [facility] Comment on above: Performed By: #### Cheri BARLOW ####[facility] Wgunzgkvrh0015 [place], [place] [address]Zq. Shahbaz Rogel SEG # 1.82 103/ul Normal 1.40-6.50 [facility] Comment on above: Performed By: #### Cheri BARLOW ####[facility] Luexywknfi6843 [place], [place] [address]Id. Shahbaz Rogel SEG % 65.0 % Normal 43.0-75.0 [facility] Comment on above: Performed By: #### Cheri BARLOW ####[facility] Eiyakdejga1490 [place], [place] [address]Tt. Shahbaz Rogel WBC 2.8 103/ul Critically low 4.0-11.0 [facility] Comment on above: Performed By: #### Cheri BARLOW ####[facility] Kdbozhqcmu7633 [place] [id number]. Shahbaz Rogel [facility] ([facility]on SARS-CoV-2 (COVID-19) RNA PAVAN+probe Ql (Unsp spec) Not detected Normal NOT DETECTED [facility] Comment on above: Result Comment: When [...] for this test is supported by the Radio Personality of Health and Human Service's declaration that [...] Performed By: #### C VDTBH ####[facility] Ijzjlqldyr[address] [place], [place] [address]Dr. Shahbaz Rogel D-DIMERon 01-02-2023 D-DIMER 0.38 mg/L FEU Normal <=0.59 [facility] Comment on above: Performed By: #### D DIM ####[facility] Tiiykcrwld[address] [place], [place] [address]Dr. Shahbaz Rogel D-DIMER COMMENTS SEE BELOW Normal [facility] Comment on above: Result Comment: Incr [...] Performed By: #### D DIM ####[facility] Jigttyqahz[address] [place], [place] [address]Dr. Shahbaz Rogel LACTATE/LACTIC ACIDon 2022 Lactate [Moles/Vol] 2.1 mmol/L Critically high 0.4-2.0 [facility] Comment on above: Performed By: #### L ACT ####[facility] Ulgqdexxoh[address] [place], [place] [address]Dr. Shahbaz Rogel PROF CHEM 8 (BAS METB)on 04- 03-2023 Anion gap [Moles/Vol] 14.3 mmol/L Normal Th e [facility] Comment on above: Performed By: #### Cheri FALCON, BMP ####[facility] Prlnkifjve[address] [place], [place] [address]Dr. Shahbaz Rogel Calcium [Mass/Vol] 9.0 mg/dL Normal 8.5-10.1 [facility] Comment on above: Performed By: #### Cheri FALCON, BMP ####[facility] Ppnyarsbdp[address] [place], [place] [address]Dr. Shahbaz Rogel Chloride [Moles/Vol] 102 mmol/L Normal 98-107 [facility] Comment on above: Performed By: #### Cheri FALCON, BMP ####[facility] Olalzxgrmd[address] [place], [place] [address]Dr. Lilajarrod Rogel CO2 [Moles/Vol] 25.5 mmol/L Normal 21.0-32.0 [facility] Comment on above: Performed By: #### Cheri FALCON, BMP ####[facility] Xazllfxnon[address] [place], [place] [address]Dr. Shahbaz Rogel Creatinine [Mass/Vol] 1.01 mg/dL Normal 0.55-1.02 [facility] Comment on above: Performed By: #### Cheri FALCON, BMP ####[facility] Uefrtlwjwe[address] [place], [place] [address]Dr. Shahbaz Juan F EGFR-AF MARSHALLESE >60 Normal >=60 [facility] Comment on above: Performed By: #### Cheri FALCON, BMP ####[facility] Jfulogirxd[address] [place], [place] [address]Dr. Lilajarrod Juan F EGFR-NON AF MARSHALLESE 56 mL/min/1.73m2 Critically low >=60 [facility] Comment on above: Performed By: #### Cheri FALCON, BMP ####[facility] Xsnltxetau365[address] [place], [place] [address]Dr. Lilajarrod Rogel Glucose [Mass/Vol] 105 mg/dL Normal 74-106 [facility] Comment on above: Performed By: #### Cheri FALCON, BMP ####[facility] Wvgexlbure[address] [place], [place] [address]Dr. Shahbaz Rogel Potassium [Moles/Vol] 3.8 mmol/L Normal 3.5-5.1 [facility] Comment on above: Performed By: #### C EZEKIEL, BMP ####[facility] Clutzjfkly[address] [place] [address]Dr. Shahbaz Rogel Sodium [Moles/Vol] 138 mmol/L Normal 136-145 [facility] Comment on above: Performed By: #### C EZEKIEL, BMP ####[facility] Yrggytrdqy[address] [place], [place] [address]Dr. Shahbaz Rogel Urea nitrogen [Mass/Vol] 9.0 mg/dL Normal 7.0-18.0 [facility] Comment on above: Performed By: #### C EZEKIEL, BMP ####[facility] Nscimpstpb[address] [place], [place] [address]Dr. Shahbaz Rogel Urea nitrogen/Creatinine [Mass ratio] 8.9 mg/mg Normal [facility] Comment on above: Performed By: #### C EZEKIEL, BMP ####[facility] Vtcraqyqda[address] [place], [place] [address]Dr. Shahbaz Rogel XR CHEST 1 Von 01-02-2023 XR CHEST 1 V Normal [facility] INSULINon 11-02-2022 Insulin 6.0 uIU/mL Normal 2.6-24.9 [facility] Comment on above: Performed By: #### I NSULIN ####[facility] Wacqncqgkx[address] [place], [place] [address]Dr. Shahbaz Rogel CBC AUTO DIFFon 11-01-2022 BASO # 0.0 103/ul Normal 0.0-0.1 [facility] Comment on above: Performed By: #### C BC ####[facility] Bntesfudhi[address] [place], [place] [address]Dr. Shahbaz Rogel Basophils/100 WBC (Bld) 0.5 % Normal 0.2-2.0 [facility] Comment on above: Performed By: #### C BC ####[facility] Fmlzecholm[address] [place], [place] [address]Dr. Shahbaz Rogel EO # 0.2 103/ul Normal 0.0-0.7 [facility] Comment on above: Performed By: #### C BC ####[facility] Gaaozkzyrz23[address] [place], [place] [address]Dr. Shahbaz Rogel Eosinophils/100 WBC (Bld) 5.2 % Normal 0.9-7.0 [facility] Comment on above: Performed By: #### C BC ####[facility] Xvgstdmaqn17[address] [place], [place] [address]Dr. Shahbaz Rogel Erythrocyte distribution width (RBC) [Ratio] 12.7 % Normal 11.0-15.0 [facility] Comment on above: Performed By: #### C BC ####[facility] Olhkyhclba[address] [place], [place] [address]Dr. Shahbaz Rogel Hematocrit (Bld) [Volume fraction] 46.4 % Normal 36.0-48.0 [facility] Comment on above: Performed By: #### C BC ####[facility] Vkvixklrkn[address] [place], [place] [address]Dr. Shahbaz Rogel Hemoglobin (Bld) [Mass/Vol] 14.9 g/dL Normal 12.0-16.0 [facility] Comment on above: Performed By: #### C BC ####[facility] [address]hplxwpl[address] [place], [place] [address]Dr. Shahbaz Rogel IG # 0.00 10e3/ul Normal 0.00-0.03 [facility] Comment on above: Performed By: #### C BC ####[facility] Edrldrnqtn[address] [place], [place] [address]Dr. Shahbaz Rogel IG % 0.0 % Normal 0.0-0.5 [facility] Comment on above: Performed By: #### C BC ####[facility] F[address]xqatxfe[address] [place], [place] [address]DrChen Rogel LYMPH # 1.1 103/ul Critically low 1.2-3.8 [facility] Comment on above: Performed By: #### C BC ####[facility] Odtiyzeqrn[address]10[address] [place], [place] [address]Dr. Shahbaz Rogel Lymphocytes/100 WBC (Bld) 25.5 % Normal 20.5-60.0 [facility] Comment on above: Performed By: #### C BC ####[facility] [address]vhsbvl[address] [place] [address]DrChen Rogel MANUAL DIFF REQ NO Normal [facility] Comment on above: Performed By: #### C BC ####[facility] Ovsnnjepzv40[address] [place] [address]Dr. Shahbaz Rogel MCH (RBC) [Entitic mass] 27.8 pg Normal 26.7-34.0 [facility] Comment on above: Performed By: #### C BC ####[facility] [address]wazteqkg[address] [place], [place] [address]Dr. Shahbaz Rogel MCHC (RBC) [Mass/Vol] 32.1 g/dL Normal 29.9-35.2 [facility] Comment on above: Performed By: #### C BC ####[facility] Tuqqticlkb[address] [place], [place] [address]DrChen Rogel MCV (RBC) [Entitic vol] 86.6 fL Normal 81.0-99.0 [facility] Comment on above: Performed By: #### C BC ####[facility] [address]blcnwp[address] [place], [place] [address]DrChen Rogel MONO # 0.2 103/ul Critically low 0.3-0.8 [facility] Comment on above: Performed By: #### C BC ####[facility] [address]vqlefhir[address] [place], [place] [address]DrChen Rogel Monocytes/100 WBC (Bld) 5.4 % Normal 1.7-12.0 [facility] Comment on above: Performed By: #### C BC ####[facility] Zurrvdfbai[address] [place], [place] [address]DrChen Rogel NEUT # 2.7 103/ul Normal 1.4-6.5 [facility] Comment on above: Performed By: #### C BC ####[facility] Bxtwxfjqol[address] [place], [place] [address]DrChen Rogel Neutrophils/100 WBC (Bld) 63.4 % Normal 43.0-75.0 [facility] Comment on above: Performed By: #### C BC ####[facility] Iapsuoqnpx[address] [place] [address]Dr. Shahbaz Rogel Platelet mean volume (Bld) [Entitic vol] 9.4 fL Critically low 9.5-13.5 [facility] Comment on above: Performed By: #### C BC ####[facility] Sckijutuwq27[address] [place] [address]Dr. Shahbaz Juan F PLT 216 103/ul Normal 150-450 [facility] Comment on above: Performed By: #### C BC ####[facility] Zxfrdeeknu3268 [place] [address]Dr. Shahbaz Juan F RBC 5.36 106/ul Normal 4.20-5.40 [facility] Comment on above: Performed By: #### C BC ####[facility] Eljukohzkn[address] [place], [place] [address]Dr. Shahbaz Juan F WBC 4.2 103/ul Normal 4.0-11.0 [facility] Comment on above: Performed By: #### C BC ####[facility] Nkhdhgzlms[address] [place] [address]Dr. Shahbaz Juan F FREE THYROXINE INDEX T7on FTI 2.92 Normal 1.30-4.50 [facility] Comment on above: Performed By: #### C MP, LIPID, T7, TSH ####[facility] Vcmvxuckem232[address] [place] [address]Dr. Shahbaz Juan F T3U 37.0 % Normal 30.0-39.0 [facility] Comment on above: Performed By: #### C MP, LIPID, T7, TSH ####[facility] Susythcclu4[address] [place] [address]Dr. Shahbaz Rogel T4 [Mass/Vol] 7.90 ug/dL Normal 4.80-13.90 [facility] Comment on above: Performed By: #### C MP, LIPID, T7, TSH ####[facility] K[address]fqxeczq[address] [place] [address]Dr. Shahbaz Rogel GLYCOHEMOGLOBIN A1Con 2022 ADA RECOMMENDATION SEE BELOW Normal [facility] Comment on above: Result Comment: ADA RECOMMENDED LIMIT 4.0 - 6.0 ADA THERAPEUTIC TARGET < 7.0 ACTION SUGGESTED > 7.0 Performed By: #### A 1C ####[facility] Dtszoydeok57[address] [place] [address]Dr. Shahbaz Rogel Glucose [Mass/Vol] 120 mg/dL Normal [facility] Comment on above: Performed By: #### A 1C ####[facility] Qdexkmbrlz[address] [place], [place] [address]Dr. Shahbaz Rogel HbA1c (Bld) [Mass fraction] 5.8 % Normal 4.5-6.2 [facility] Comment on above: Performed By: #### A 1C ####[facility] Jgkundcuyz[address] [place], [place] [address]Dr. Shahbaz Rogel IRONon 11-01-2022 Iron [Mass/Vol] 54.0 ug/dL Normal 50.0-170.0 [facility] Comment on above: Performed By: #### I GRIS ####[facility] [address]qsgftfkp[address] [place], [place] [address]Dr. Shahbaz Rogel LIPID PROFILEon 11-01-2022 CHOL-HDL RATIO NORM SEE BELOW Normal [facility] Comment on above: Result Comment: 3.3 - 4.4 LOW RISK 4.4 - 7.1 AVERAGE RISK 7.1 - 11.0 MODERATE RISK >11.0 HIGH RISK Performed By: #### C MP, LIPID, T7, TSH ####[facility] Sesxbifgqy[address] [place], [place] [address]Dr. Shahbaz Rogel Cholesterol [Mass/Vol] 203 mg/dL Critically high <=200 [facility] Comment on above: Performed By: #### C MP, LIPID, T7, TSH ####[facility] Zrppik[address]xo[address] [place], [place] [address]Dr. Shahbaz Rogel Cholesterol in HDL [Mass/Vol] 42 mg/dL Normal 40-60 [facility] Comment on above: Performed By: #### C MP, LIPID, T7, TSH ####[facility] Jdsyevzgpd5359 [place] [address]Dr. Shahbaz Rogel Cholesterol in LDL [Mass/Vol] 121.4 mg/dL Normal [facility] Comment on above: Performed By: #### C MP, LIPID, T7, TSH ####[facility] Wmmiqxuxsp8171 [place] [address]Dr. Shahbaz Rogel Cholesterol.total/Chol esterol in HDL [Mass ratio] 4.8 {ratio} Normal [facility] Comment on above: Performed By: #### C MP, LIPID, T7, TSH ####[facility] Ylxrjfcjfc[address] [place] [address]Dr. Shahbaz Rogel HDL NORMAL > or = 60 mg/dl - LO W CARDIOVASCULAR RISK <40 mg/dl - HIGH CARDIOVASCULAR RISK Normal [facility] Comment on above: Performed By: #### C MP, LIPID, T7, TSH ####[facility] Jligyehpvo28[address] [place] [address]Dr. Shahbaz Rogel LDL CALC NORMAL SEE BELOW Normal [facility] Comment on above: Result Comment: <100 mg/dl OPTIMAL 100 - 129 mg/dl NEAR OR ABOVE OPTIMAL 130 - 159 mg/dl BORDERLINE HIGH 160 - 189 mg/dl HIGH >190 mg/dl VERY HIGH Performed By: #### C MP, LIPID, T7, TSH ####[facility] E[address]ylkwuum[address] [place] [address]Dr. Shahbaz Rogel Triglyceride [Mass/Vol] 198 mg/dL Critically high <=150 [facility] Comment on above: Performed By: #### C MP, LIPID, T7, TSH ####[facility] Qrpdsolucq3585 [place] [address]Dr. Shahbaz Rogel VLDL CALC 39.6 mg/dL Normal [facility] Comment on above: Performed By: #### C MP, LIPID, T7, TSH ####[facility] Xhhatkrbcg3[address] [place] [address]Dr. Shahbaz Rogel PROF 14(COMP METB)on 023 Albumin [Mass/Vol] 4.1 g/dL Normal 3.4-5.0 [facility] Comment on above: Performed By: #### C MP, LIPID, T7, TSH ####[facility] Rbkcjkhpnn4[address] [place] [address]Dr. Shahbaz Rogel Albumin/Globulin [Mass ratio] 1.0 {ratio} Normal [facility] Comment on above: Performed By: #### C MP, LIPID, T7, TSH ####[facility] Nulifxivwp[address] [place] [address]Dr. Shahbaz Rogel ALP [Catalytic activity/Vol] 126 U/L Critically high 46-116 [facility] Comment on above: Performed By: #### C MP, LIPID, T7, TSH ####[facility] [address]jrfx[address] [place] [address]Dr. Shahbaz Rogel ALT [Catalytic activity/Vol] 30 U/L Normal 14-59 [facility] Comment on above: Performed By: #### C MP, LIPID, T7, TSH ####[facility] Fsqshnehwb99[address] [place] [address]Dr. Shahbaz Rogel Anion gap [Moles/Vol] 12.3 mmol/L Normal [facility] Comment on above: Performed By: #### C MP, LIPID, T7, TSH ####[facility] [address]toopzex[address] [place], [place] [address]Dr. Shahbaz Rogel AST [Catalytic activity/Vol] 25 U/L Normal 15-37 [facility] Comment on above: Performed By: #### C MP, LIPID, T7, TSH ####[facility] Yobwzeukbw[address] [place] [address]Dr. Shahbaz Rogel Bilirubin [Mass/Vol] 0.5 mg/dL Normal 0.2-1.0 [facility] Comment on above: Performed By: #### C MP, LIPID, T7, TSH ####[facility] Xscoymznkh[address] [place] [address]Dr. Shahbaz Rogel Calcium [Mass/Vol] 9.4 mg/dL Normal 8.5-10.1 [facility] Comment on above: Performed By: #### C MP, LIPID, T7, TSH ####[facility] Hblnbobmpk77[address] [place] [address]Dr. Shahbaz Rogel Chloride [Moles/Vol] 104 mmol/L Normal 98-107 [facility] Comment on above: Performed By: #### C MP, LIPID, T7, TSH ####[facility] Zubswrhbej14[address] [place] [address]Dr. Shahbaz Rogel CO2 [Moles/Vol] 29.6 mmol/L Normal 21.0-32.0 [facility] Comment on above: Performed By: #### C MP, LIPID, T7, TSH ####[facility] Dupfzprwmd[address] [place] [address]Dr. Shahbaz Rogel Creatinine [Mass/Vol] 0.91 mg/dL Normal 0.55-1.02 [facility] Comment on above: Performed By: #### C MP, LIPID, T7, TSH ####[facility] [address]tvzljzihl[address] [place] [address]Dr. Shahbaz Rogel EGFR-AF MARSHALLESE >60 Normal >=60 [facility] Comment on above: Performed By: #### C MP, LIPID, T7, TSH ####[facility] [address]xuzjjyjiq16[address] [place] [address]Dr. Shahbaz Rogel EGFR-NON AF MARSHALLESE >60 Normal >=60 [facility] Comment on above: Performed By: #### C MP, LIPID, T7, TSH ####[facility] Gxhddcmjrx8187 [place] [address]Dr. Lilajarrod Rogel Globulin (S) [Mass/Vol] 4.0 g/dL Normal [facility] Comment on above: Performed By: #### C MP, LIPID, T7, TSH ####[facility] Ctxskvarcr7[address] [place] [address]Dr. Shahbaz Rogel Glucose [Mass/Vol] 85 mg/dL Normal 74-106 [facility] Comment on above: Performed By: #### C MP, LIPID, T7, TSH ####[facility] Yfmeeklgqk0634 [place] [address]Dr. Shahbaz Rogel Potassium [Moles/Vol] 3.9 mmol/L Normal 3.5-5.1 [facility] Comment on above: Performed By: #### C MP, LIPID, T7, TSH ####[facility] Lchstlvpjw[address] [place] [address]Dr. Shahbaz Rogel Protein [Mass/Vol] 8.1 g/dL Normal 6.4-8.2 [facility] Comment on above: Performed By: #### C MP, LIPID, T7, TSH ####[facility] [address]jzmyvuorh60[address] [place] [address]Dr. Shahbaz Rogel Sodium [Moles/Vol] 142 mmol/L Normal 136-145 [facility] Comment on above: Performed By: #### C MP, LIPID, T7, TSH ####[facility] Boizfqnwdc[address] [place] [address]Dr. Shahbaz Rogel Urea nitrogen [Mass/Vol] 9.0 mg/dL Normal 7.0-18.0 [facility] Comment on above: Performed By: #### C MP, LIPID, T7, TSH ####[facility] Mgacaqttzf49[address] [place] [address]Dr. Shahbaz Rogel Urea nitrogen/Creatinine [Mass ratio] 9.9 mg/mg Normal [facility] Comment on above: Performed By: #### C MP, LIPID, T7, TSH ####[facility] Jvmulefics[address] [place] [address]Dr. Shahbaz Rogel TSHon 11-01-2022 TSH 0.045 uIU/mL Critically low 0.358-3.74 0 [facility] Comment on above: Performed By: #### C MP, LIPID, T7, TSH ####[facility] [address]fq[address] [place], [place] [address]Dr. Shahbaz Rogel XR HUMERUS LT MIN 2Von 10-01 XR HUMERUS LT MIN 2V Normal [facility] XR LSPINE 2_3 VIEWSon 2021 XR LSPINE 2_3 VIEWS Normal [facility] XR CHEST 1 Von 08-25-2022 XR CHEST 1 V Normal [facility] ACID FAST SMEAR AND CXon Acid Fast Culture Negative Normal [facility] Comment on above: Result Comment: No a nifna fast bacilli isolated after 6 weeks. Performed By: #### A FB ####[facility] [address]ext[address]sc[address] [place], [place] [address]Ni. Shahbaz Rogel Acid Fast Smear Negative Normal [facility] Comment on above: Performed By: #### A FB ####[facility] Iwcoeqmoxm0665 [place], [place] [address]Ne. Shahbaz Rogel [employer] Specimen Processing Concentration Normal [facility] Comment on above: Performed By: #### A FB ####[facility] [address]mspsa[address] [place], [place] [address]Pp. Shahbaz Rogel Bacteria identified Anaer cx Nom (Unsp spec)Ordered By: Rodolfo Harley on 08-13-2022 Anaerobic microbial culture No Anaerobes Isolated 3 Days [facility] Basophils Auto (Bld) [#/Vol] Ordered By: Rodolfo Harley on 08-12-2022 Basophils (Bld) [#/Vol] 0.0 10*3/uL 0.0-0.2 [facility] Basophils/100 WBC Auto (Bld) Ordered By: Rodolfo Harley on 08-12-2022 Basophils/100 WBC (Bld) 0.4 % . [facility] Creatinine and Glomerular fi ltration rate.predicted panel (S/P/Bld)Ordered By: Rodolfo Harley on 08-12-2022 Creatinine [Mass/Vol] 0.74 mg/dL 0.44-1.03 [facility] Eosinophils Auto (Bld) [#/Vo l]Ordered By: Rodolfo Harley on 08-12-2022 Eosinophils (Bld) [#/Vol] 0.0 10*3/uL 0.0-0.45 [facility] Eosinophils/100 WBC Auto (Bl d)Ordered By: Rodolfo Harley on 08-12-2022 Eosinophils/100 WBC (Bld) 0.0 % . [facility] Erythrocyte distribution wid th Auto (RBC) [Ratio]Ordered By: Rodolfo Harley on 08-12-2022 Erythrocyte distribution width (RBC) [Ratio] 14.2 % 11.9-15.3 [facility] Estimated glomerular filtrat ion rate (GFR) non- AmericanOrdered By: Rodolfo Harley on 08-12-2022 GFR/1.73 sq M.predicted among non-blacks MDRD (S/P/Bld) [Vol rate/Area] > 60 mL/Min [facility] Hematocrit Auto (Bld) [Volum e fraction]Ordered By: Rodolfo Harley on 08-12-2022 Hematocrit (Bld) [Volume fraction] 38.0 % 34.0-46.4 [facility] Hemoglobin [Mass/volume] in BloodOrdered By: Rodolfo Harley on 08-12-2022 Hemoglobin (Bld) [Mass/Vol] 12.5 g/dL 11.8-15.4 [facility] Laboratory - Hematology and Cell countsOrdered By: Rodolfo Harley on 08-12-2022 Nucleated RBC/100 WBC (Bld) [Ratio] 0.1 % 0-0.5 [facility] Leukocytes [#/volume] in Blo od by Automated countOrdered By: Rodolfo Harley on 08-12-2022 WBC (Bld) [#/Vol] 5.8 10*3/uL 4.5-11.0 [facility] Lymphocytes Auto (Bld) [#/Vo l]Ordered By: Rodolfo Harley on 08-12-2022 Lymphocytes (Bld) [#/Vol] 0.7 10*3/uL 1.00-4.8 [facility] Lymphocytes/100 WBC Auto (Bl d)Ordered By: Rodolfo Harley on 08-12-2022 Lymphocytes/100 WBC (Bld) 11.4 % . [facility] MCH Auto (RBC) [Entitic mass ]Ordered By: Rodolfo Harley on 08-12-2022 MCH (RBC) [Entitic mass] 28.1 pg 24.7-34.3 [facility] MCHC Auto (RBC) [Mass/Vol]Or dered By: Rodolfo Harley on 08-12-2022 MCHC (RBC) [Mass/Vol] 32.9 g/dL 32.0-35.0 [facility] MCV Auto (RBC) [Entitic vol] Ordered By: Rodolfo Harley on 08-12-2022 MCV (RBC) [Entitic vol] 85.4 fL 80-100 [facility] Monocytes Auto (Bld) [#/Vol] Ordered By: Rodolfo Harley on 08-12-2022 Monocytes (Bld) [#/Vol] 0.3 10*3/uL 0.0-0.8 [facility] Monocytes/100 WBC Auto (Bld) Ordered By: Rodolfo Harley on 08-12-2022 Monocytes/100 WBC (Bld) 4.8 % . [facility] Neutrophils Auto (Bld) [#/Vo l]Ordered By: Rodolfo Harley on 08-12-2022 Neutrophils (Bld) [#/Vol] 4.8 10*3/uL 1.8-7.7 [facility] Neutrophils/100 WBC Auto (Bl d)Ordered By: Rodolfo Harley on 08-12-2022 Neutrophils/100 WBC (Bld) 83.4 % . [facility] No Panel InformationOrdered By: Rodolfo Harley on 08-12-2022 Estimated GFR () > 60 mL/Min [facility] Comment on above: GFR estimated refere nce range: According to KDOQI guidelines, <60 ml/min/1.73m2 is sufficient to diagnose a patient with chronic kidney disease. Pharmacy Creatinine Clearance (Chem 59.45 [facility] Platelet mean volume Auto (B ld) [Entitic vol]Ordered By: Rodolfo Harley on 08-12-2022 Platelet mean volume (Bld) [Entitic vol] 7.9 fL 6.3-10.7 [facility] Platelets Auto (Bld) [#/Vol] Ordered By: Rodolfo Harley on 08-12-2022 Platelets (Bld) [#/Vol] 196 10*3/uL 150-450 [facility] RBC Auto (Bld) [#/Vol]Ordere d By: Rodolfo Harley on 08-12-2022 RBC (Bld) [#/Vol] 4.45 10*6/uL 3.60-5.00 [facility] Serum or plasma anion gap de terminationOrdered By: Rodolfo Harley on 08-12-2022 Anion gap [Moles/Vol] 7.5 mmol/L 6.0-15.0 [facility] Serum or plasma calcium dagoberto urement (mass/volume)Ordered By: Rodolfo Harley on 08-12-2022 Calcium [Mass/Vol] 8.7 mg/dL 8.2-10.2 [facility] Serum or plasma chloride anahy surement (moles/volume)Ordered By: Rodolfo Harley on 08-12-2022 Chloride [Moles/Vol] 108 mmol/L 95-114 [facility] Serum or plasma glucose dagoberto urement (mass/volume)Ordered By: Rodolfo Harley on 08-12-2022 Glucose [Mass/Vol] 133 mg/dL 70-100 [facility] Comment on above: ADA recommended refe rence rangeRandom Glucose Reference Range is dependent on time and content of last meal. Glucose of more than 200 mg/dL in a nonstressed, ambulatory subject supports the diagnosis of Diabetes Mellitus. Serum or plasma potassium me asurement (moles/volume)Ordered By: Rodolfo Harley on 08-12-2022 Potassium [Moles/Vol] 3.7 mmol/L 3.5-5.1 [facility] Serum or plasma sodium measu rement (moles/volume)Ordered By: Rodolfo Harley on 08-12-2022 Sodium [Moles/Vol] 139 mmol/L 136-146 [facility] Serum or plasma total carbon dioxide measurement (moles/volume)Ordered By: Rodolfo Harley on 08-12-2022 CO2 [Moles/Vol] 27.2 mmol/L 22.0-30.0 [facility] Serum or plasma urea nitroge n measurement (mass/volume)Ordered By: Rodolfo Harley on 08-12-2022 Urea nitrogen [Mass/Vol] 14 mg/dL 9-23 [facility] ABO and Rh group post transf usion reaction Nom (Bld)Ordered By: Rodolfo Harley on 08-10-2022 Microscopic observation Gram stain Nom (Unsp spec) [facility] AFB cultureOrdered By: Sissy Harley on 08-10-2022 Mycobacterium sp identified Org specific cx Nom (Unsp spec) [facility] AFB smearOrdered By: Rodolfo Harley on 08-10-2022 Microscopic observation Smear Nom (Unsp spec) [facility] Aerobic cultureOrdered By: Margie Harley on 08-10-2022 Bacteria identified Aer cx Nom (Unsp spec) No Growth 2 Days [facility] Anaerobic cultureOrdered By: Rodolfo Harley on 08-10-2022 Bacteria identified Anaer cx Nom (Unsp spec) No Anaerobes Isolated 3 Days [facility] Arterial blood standard base excess determination by calculationOrdered By: Rodolfo Harley on 08-10-2022 Base excess standard Calc (BldA) [Moles/Vol] 5 mmol/L -2-3 [facility] Blood carbon dioxide, total measurement by calculation (moles/volume)Ordered By: Rodolfo Harley on 08-10-2022 CO2 Calc (Bld) [Moles/Vol] 30 mmol/L 23-[address] [facility] [address] biopsyOrdered By: Rodolfo Harley on 08-10-2022 Hematocrit (Bld) [Volume fraction] 40.0 % 38.0-51.0 [facility] Fungal cultureOrdered By: Rolanda Harley on 08-10-2022 Fungus identified Cx Nom (Unsp spec) [facility] Glucose Glucometer (BldC) [M ass/Vol]Ordered By: Rodolfo Harley on 08-10-2022 Glucose [Mass/Vol] 126 mg/dL 70-105 [facility] Gram stain for investigation of transfusion reactionOrdered By: Rodolfo Harley on 08-10-2022 Microscopic observation Gram stain Nom (Unsp spec) [facility] Hemoglobin Calc (Bld) [Mass/ Vol]Ordered By: Rodolfo Harley on 08-10-2022 Hemoglobin (Bld) [Mass/Vol] 13.6 g/dL 12.0-17.0 [facility] Monocyte %Ordered By: Jean Harley on 08-10-2022 Monocyte % 39.9 mm[Hg] 35-51 [facility] Monocyte % 45 mm[Hg] 80-105 [facility] No Panel InformationOrdered By: Rodolfo Harley on 08-10-2022 Chlamydia psittaci Antibodies <1:10 Neg:<1:10 [facility] Comment on above: This test was develo ped and its performance characteristicsdetermined by [facility]. It has not been cleared or approvedby the Food and Drug Administration. The FDA hasdetermined that such clearance or approval is notnecessary.Performed at: - [facility] [address] [place], [place] [id number] Director: Shelly Vargas MD, Phone: [phone] Potassium (Bld) [Moles/Vol]O rdered By: Rodolfo Harley on 08-10-2022 Potassium [Moles/Vol] 3.8 mmol/L 3.5-4.9 [facility] Sodium (Bld) [Moles/Vol]Orde red By: Rodolfo Harley on 08-10-2022 Sodium [Moles/Vol] 141 mmol/L 138-146 [facility] Whole blood bicarbonate dagoberto urementOrdered By: Rodolfo Harley on 08-10-2022 HCO3 (Bld) [Moles/Vol] 29.1 mmol/L 22.0-28.0 [facility] Whole blood ionized calcium measurement (moles/volume)Ordered By: Rodolfo Harley on 08-10-2022 Calcium.ionized (Bld) [Moles/Vol] 1280 mmol/L 1.12-1.32 [facility] Whole blood oxygen saturatio n measurementOrdered By: Rodolfo Harley on 08-10-2022 Oxygen saturation in Blood 84 % 95-98 [facility] Comment on above: Reference ranges ref lect baseline specimens only Whole blood pHOrdered By: Rolanda Harley on 08-10-2022 pH (Bld) 7.470 Units 7.31-7.45 [facility] Urine culture routineOrdered By: Rodolfo Harley on 08-07-2022 Bacteria identified Cx Nom (U) 2 Days [facility] Activated partial thrombopla stin time (aPTT) in platelet poor plasma by coagulation aOrdered By: Rodolfo Harley on 08-05-2022 aPTT Coag (PPP) [Time] 35.9 s 25.1-36.5 [facility] Basophils Auto (Bld) [#/Vol] Ordered By: Rodolfo Harley on 08-05-2022 Basophils (Bld) [#/Vol] 0.0 10*3/uL 0.0-0.2 [facility] Basophils/100 WBC Auto (Bld) Ordered By: Rodolfo Harley on 08-05-2022 Basophils/100 WBC (Bld) 0.5 % . [facility] Body fluid albumin measureme nt (mass/volume)Ordered By: Rodolfo Harley on 08-05-2022 Albumin (Body fld) [Mass/Vol] 3.8 g/dL 3.2-5.5 [facility] COVID-19 Positive/NegativeOr dered By: Rodolfo Harley on 08-05-2022 SARS-CoV-2 (COVID-19) N gene PAVAN+probe Ql (Resp) Negative Negative [facility] Comment on above: Testing for SARS-CoV -2 by RT-PCRThis test was developed and its performance characteristics determined by [employer] ([employer]) and validated at the [facility]. This test has not been FDA cleared [...] on 08-05-2022 Creatinine [Mass/Vol] 0.97 mg/dL 0.44-1.03 [facility] Eosinophils Auto (Bld) [#/Vo l]Ordered By: Rodolfo Harley on 08-05-2022 Eosinophils (Bld) [#/Vol] 0.2 10*3/uL 0.0-0.45 [facility] Eosinophils/100 WBC Auto (Bl d)Ordered By: Rodolfo Harley on 08-05-2022 Eosinophils/100 WBC (Bld) 4.9 % . [facility] Erythrocyte distribution wid th Auto (RBC) [Ratio]Ordered By: Rodolfo Harley on 08-05-2022 Erythrocyte distribution width (RBC) [Ratio] 14.5 % 11.9-15.3 [facility] Estimated glomerular filtrat ion rate (GFR) non- AmericanOrdered By: Rodolfo Harley on 08-05-2022 GFR/1.73 sq M.predicted among non-blacks MDRD (S/P/Bld) [Vol rate/Area] 59 mL/Min [facility] FUNGAL CULTUREon 08-05-2022 Fungus (Mycology) Culture Final report Abnormal [facility] Comment on above: Performed By: #### C XFUN ####[facility] [address] [place], [place] [address]Dr. Shahbaz Rogel Fungus Stain Final report Normal [facility] Comment on above: Performed By: #### C XFUN ####[facility] [address] [place], [place] [address]Dr. Shahbaz Rogel Result 1 Comment Abnormal [facility] Comment on above: Result Comment: MILADYS/ Calcofluor preparation: no fungus observed. Performed By: #### C XFUN ####[facility] [address] [place], [place] [address]Dr. Shahbaz Rogel Result Comment: Aspe rgillus versicolor Result 2 Penicillium species Abnormal [facility] Comment on above: Performed By: #### C XFUN ####[facility] [address] [place], [place] [address]Dr. Shahbaz Rogel Globulin Calc (S) [Mass/Vol] Ordered By: Rodolfo Harley on 08-05-2022 Globulin (S) [Mass/Vol] 2.9 g/dL [facility] Hematocrit Auto (Bld) [Volum e fraction]Ordered By: Rodolfo Harley on 08-05-2022 Hematocrit (Bld) [Volume fraction] 43.3 % 34.0-46.4 [facility] Hemoglobin [Mass/volume] in BloodOrdered By: Rodolfo Harley on 08-05-2022 Hemoglobin (Bld) [Mass/Vol] 14.3 g/dL 11.8-15.4 [facility] Laboratory - CoagulationOrde red By: Rodolfo Harley on 08-05-2022 PT Coag (PPP) [Time] 12.4 s 9.0-12.9 [facility] Laboratory - Hematology and Cell countsOrdered By: Rodolfo Harley on 08-05-2022 Nucleated RBC/100 WBC (Bld) [Ratio] 0.0 % 0-0.5 [facility] Leukocytes [#/volume] in Blo od by Automated countOrdered By: Rodolfo Harley on 08-05-2022 WBC (Bld) [#/Vol] 3.4 10*3/uL 4.5-11.0 [facility] Lymphocytes Auto (Bld) [#/Vo l]Ordered By: Rodolfo Harley on 08-05-2022 Lymphocytes (Bld) [#/Vol] 0.9 10*3/uL 1.00-4.8 [facility] Lymphocytes/100 WBC Auto (Bl d)Ordered By: Rodolfo Harley on 08-05-2022 Lymphocytes/100 WBC (Bld) 27.2 % . [facility] MCH Auto (RBC) [Entitic mass ]Ordered By: Rodolfo Harley on 08-05-2022 MCH (RBC) [Entitic mass] 28.4 pg 24.7-34.3 [facility] MCHC Auto (RBC) [Mass/Vol]Or dered By: Rodolfo Harley on 08-05-2022 MCHC (RBC) [Mass/Vol] 33.1 g/dL 32.0-35.0 [facility] MCV Auto (RBC) [Entitic vol] Ordered By: Rodolfo Harley on 08-05-2022 MCV (RBC) [Entitic vol] 85.9 fL 80-100 [facility] Monocytes Auto (Bld) [#/Vol] Ordered By: Rodolfo Harley on 08-05-2022 Monocytes (Bld) [#/Vol] 0.3 10*3/uL 0.0-0.8 [facility] Monocytes/100 WBC Auto (Bld) Ordered By: Rodolfo Harley on 08-05-2022 Monocytes/100 WBC (Bld) 7.5 % . [facility] Neutrophils Auto (Bld) [#/Vo l]Ordered By: Rodolfo Harley on 08-05-2022 Neutrophils (Bld) [#/Vol] 2.0 10*3/uL 1.8-7.7 [facility] Neutrophils/100 WBC Auto (Bl d)Ordered By: Rodolfo Harley on 08-05-2022 Neutrophils/100 WBC (Bld) 59.9 % . [facility] No Panel InformationOrdered By: Rodolfo Harley on 08-05-2022 Estimated GFR () > 60 mL/Min [facility] Comment on above: GFR estimated refere nce range: According to KDOQI guidelines, <60 ml/min/1.73m2 is sufficient to diagnose a patient with chronic kidney disease. Pharmacy Creatinine Clearance (Chem N/A [facility] Platelet mean volume Auto (B ld) [Entitic vol]Ordered By: Rodolfo Harley on 08-05-2022 Platelet mean volume (Bld) [Entitic vol] 8.1 fL 6.3-10.7 [facility] Platelet poor plasma interna tional normalized ratio (INR) by coagulation assay (relatOrdered By: Rodolfo Harley on 08-05-2022 INR Coag (PPP) [Relative time] 1.1 {INR} [facility] Comment on above: INR Therapeutic Rang e [...] 08-05-2022 Platelets (Bld) [#/Vol] 243 10*3/uL 150-450 [facility] Protein [Mass/volume] in Ser um or PlasmaOrdered By: Rodolfo Harley on 08-05-2022 Protein [Mass/Vol] 6.7 g/dL 6.1-7.9 [facility] RBC Auto (Bld) [#/Vol]Ordere d By: Rodolfo Harley on 08-05-2022 RBC (Bld) [#/Vol] 5.04 10*6/uL 3.60-5.00 [facility] Serum or plasma alanine snyder otransferase measurement without P-5'-P (enzymatic activiOrdered By: Rodolfo Harley on 08-05-2022 ALT No additional P-5'-P [Catalytic activity/Vol] 14 U/L 10-60 [facility] Serum or plasma albumin/glob ulin mass ratioOrdered By: Rodolfo Harley on 08-05-2022 Albumin/Globulin [Mass ratio] 1.3 {ratio} [facility] Serum or plasma alkaline sruthi sphatase measurement (enzymatic activity/volume)Ordered By: Rodolfo Harley on 08-05-2022 ALP [Catalytic activity/Vol] 91 U/L 32-92 [facility] Serum or plasma anion gap de terminationOrdered By: Rodolfo Harley on 08-05-2022 Anion gap [Moles/Vol] 14.3 mmol/L 6.0-15.0 [facility] Serum or plasma aspartate am inotransferase measurement (enzymatic activity/volume)Ordered By: Rodolfo Harley on 08-05-2022 AST [Catalytic activity/Vol] 21 U/L 10-42 [facility] Serum or plasma calcium dagoberto urement (mass/volume)Ordered By: Rodolfo Harley on 08-05-2022 Calcium [Mass/Vol] 9.5 mg/dL 8.2-10.2 [facility] Serum or plasma chloride anahy surement (moles/volume)Ordered By: Rodolfo Harley on 08-05-2022 Chloride [Moles/Vol] 102 mmol/L 95-114 [facility] Serum or plasma glucose dagoberto urement (mass/volume)Ordered By: Rodolfo Harley on 08-05-2022 Glucose [Mass/Vol] 76 mg/dL 70-100 [facility] Comment on above: ADA recommended refe rence rangeRandom Glucose Reference Range is dependent on time and content of last meal. Glucose of more than 200 mg/dL in a nonstressed, ambulatory subject supports the diagnosis of Diabetes Mellitus. Serum or plasma potassium me asurement (moles/volume)Ordered By: Rodolfo Harley on 08-05-2022 Potassium [Moles/Vol] 3.8 mmol/L 3.5-5.1 [facility] Serum or plasma sodium measu rement (moles/volume)Ordered By: Rodolfo Harley on 08-05-2022 Sodium [Moles/Vol] 138 mmol/L 136-146 [facility] Serum or plasma total biliru bin measurement (mass/volume)Ordered By: Rodolfo Harley on 08-05-2022 Bilirubin [Mass/Vol] 0.7 mg/dL 0.3-1.2 [facility] Serum or plasma total carbon dioxide measurement (moles/volume)Ordered By: Rodolfo Harley on 08-05-2022 CO2 [Moles/Vol] 25.5 mmol/L 22.0-30.0 [facility] Serum or plasma urea nitroge n measurement (mass/volume)Ordered By: Rodolfo Harley on 08-05-2022 Urea nitrogen [Mass/Vol] 12 mg/dL 06-24 [facility] Urine culture routineOrdered By: Rodolfo Harley on 08-05-2022 Bacteria identified Cx Nom (U) 2 Days [facility] XR ANKLE LT MIN 3 Von 2021 XR ANKLE LT MIN 3 V Normal [facility] BNPon 07-06-2022 Natriuretic peptide B (Bld) [Mass/Vol] 843.0 pg/mL Normal <=900.0 [facility] Comment on above: Performed By: #### B COMPENSATION AND BENEFITS ANALYST, CRP, CMP ####[facility] [address] [place] [address]DrChen Rogel CBC W MANUAL DIFFon 07-06-20 22 ATYPICAL LYMPH # Normal [facility] Comment on above: Performed By: #### C BCBRICE ####[facility] [address] [place] [id number] Rogel ATYPICAL LYMPH % Normal [facility] Comment on above: Performed By: #### C BCMAN ####[facility] [address] [place] [id number] Rogel BAND # 0.0 103/ul Normal 0.0-0.3 [facility] Comment on above: Performed By: #### C BCMAN ####[facility] [address] [place] [address]Dr. Shahbaz Rogel BAND % 0 % Normal 0-5 [facility] Comment on above: Performed By: #### C BCMAN ####[facility] [address] [place] [id number]. Yijarrod Rogel BASOM # 0.00 103/ul Normal 0.00-0.10 [facility] Comment on above: Performed By: #### C BCMAN ####[facility] [address] [place] [address]Dr. Yijarrod Rogel BASOM % 0.0 % Critically low 0.2-2.0 [facility] Comment on above: Performed By: #### C BCBRICE ####[facility] [address] [place], [place] [address]Dr. Yijarrod Rogel BLAST # Normal [facility] Comment on above: Performed By: #### C BCBRICE ####[facility] [address] [place], [place] [address]Dr. Yijarrod Rogel BLAST % Normal [facility] Comment on above: Performed By: #### C BCMAN ####[facility] [address] [place], [place] [address]Dr. Shahbaz Rogel CORRECTED WBC Normal 4.0-11.0 [facility] Comment on above: Performed By: #### C BCMAN ####[facility] [address] [place], [place] [address]Dr. Yijarrod Rogel EOS # 0.00 103/ul Normal 0.00-0.70 [facility] Comment on above: Performed By: #### C BCMAN ####[facility] [address] [place], [place] [address]Dr. Yijarrod Rogel EOS% 0.0 % Critically low 0.9-7.0 [facility] Comment on above: Performed By: #### C BCMAN ####[facility] [address] [place], [place] [address]Dr. Yilan Rogel HCT 40.3 % Normal 36.0-48.0 [facility] Comment on above: Performed By: #### C CAIN ####[facility] [address] [place] [id number]. Shahbaz Rogel HGB 12.7 g/dl Normal 12.0-16.0 [facility] Comment on above: Performed By: #### C CAIN ####[facility] [address] [place] [id number]. Shahbaz Rogel LYMPHM # 0.41 103/ul Critically low 1.20-3.80 [facility] Comment on above: Performed By: #### C CAIN ####[facility] [address] [place] [id number]. Shahbaz Rogel LYMPHM% 7.0 % Critically low 20.5-60.0 [facility] Comment on above: Performed By: #### C CAIN ####[facility] [address] [place] [id number]. Shahbaz Rogel MCH 28.0 pg Normal 26.7-34.0 [facility] Comment on above: Performed By: #### C CAIN ####[facility] [address] [place] [id number]. Shahbaz Rogel MCHC 31.5 g/dl Normal 29.9-35.2 [facility] Comment on above: Performed By: #### C CAIN ####[facility] [address] [place] [id number]. Shahbaz Rogel MCV 89.0 fL Normal 81.0-99.0 [facility] Comment on above: Performed By: #### C CAIN ####[facility] [address] [place] [id number]. Shahbaz Rogel METAMYELOCYTE # Normal [facility] Comment on above: Performed By: #### C CAIN ####[facility] [address] [place] [id number]. Shahbaz Rogel METAMYELOCYTE % Normal [facility] Comment on above: Performed By: #### C CAIN ####[facility] [address] [place] [address]Dr. Shahbaz Rogel MONOM# 0.00 103/ul Critically low 0.30-0.80 [facility] Comment on above: Performed By: #### C CAIN ####[facility] [address] [place] [address]Dr. Shahbaz Rogel MONOM% 0.0 % Critically low 1.7-12.0 [facility] Comment on above: Performed By: #### C CAIN ####[facility] [address] [place] [address]Dr. Shahbaz Rogel MPV 9.8 fL Normal 9.5-13.5 [facility] Comment on above: Performed By: #### C CAIN ####[facility] [address] [place], [place] [address]Dr. Shahbaz Rogel MYELOCYTE # Normal [facility] Comment on above: Performed By: #### C CAIN ####[facility] [address] [place], [place] [address]Dr. Shahbaz Rogel MYELOCYTE % Normal [facility] Comment on above: Performed By: #### C CAIN ####[facility] [address] [place], [place] [address]Dr. Shahbaz Rogel NRBC Normal [facility] Comment on above: Performed By: #### C CAIN ####[facility] [address] [place] [address]Dr. Shahbaz Rogel PLT 187 103/ul Normal 150-450 [facility] Comment on above: Performed By: #### C CAIN ####[facility] [address] [place], [place] [address]Dr. Shahbaz Roegl RBC 4.53 106/ul Normal 4.20-5.40 [facility] Comment on above: Performed By: #### C CAIN ####[facility] [address] [place], [place] [address]Dr. Shahbaz Rogel RDW 13.3 % Normal 11.0-15.0 [facility] Comment on above: Performed By: #### C CAIN ####[facility] [address] [place] [address]Dr. Shahbaz Rogel SEG # 5.49 103/ul Normal 1.40-6.50 [facility] Comment on above: Performed By: #### C CAIN ####[facility] [address] [place], [place] [address]Dr. Shahbaz Rogel SEG % 93.0 % Critically high 43.0-75.0 [facility] Comment on above: Performed By: #### C CAIN ####[facility] [address] [place], [place] [address]Dr. Shahbaz oRgel WBC 5.9 103/ul Normal 4.0-11.0 [facility] Comment on above: Performed By: #### C CAIN ####[facility] [address] [place], [place] [address]Dr. Shahbaz Rogel CRPon 07-06-2022 CRP [Mass/Vol] mg/L Normal <=1.0 [facility] Comment on above: Performed By: #### B COMPENSATION AND BENEFITS ANALYST, CRP, CMP ####[facility] [address] [place], [place] [address]Dr. Lilajarrod Rogel PROF 14(COMP METB)on 022 Albumin [Mass/Vol] 3.4 g/dL Normal 3.4-5.0 [facility] Comment on above: Performed By: #### B COMPENSATION AND BENEFITS ANALYST, CRP, CMP ####[facility] [address] [place], [place] [address]Dr. Shahbaz Rogel Albumin/Globulin [Mass ratio] 1.0 {ratio} Normal [facility] Comment on above: Performed By: #### B COMPENSATION AND BENEFITS ANALYST, CRP, CMP ####[facility] [address] [place], [place] [address]Dr. Shahbaz Rogel ALP [Catalytic activity/Vol] 92 U/L Normal 46-116 [facility] Comment on above: Performed By: #### B COMPENSATION AND BENEFITS ANALYST, CRP, CMP ####[facility] Lqenjoqb[address] [place], [place] [address]Dr. Shahbaz Rogel ALT [Catalytic activity/Vol] 21 U/L Normal 14-59 [facility] Comment on above: Performed By: #### B COMPENSATION AND BENEFITS ANALYST, CRP, CMP ####[facility] [address]mpfkw[address] [place] [address]Dr. Shahbaz Rogel Anion gap [Moles/Vol] 13.4 mmol/L Normal Th e [facility] Comment on above: Performed By: #### B COMPENSATION AND BENEFITS ANALYST, CRP, CMP ####[facility] [address]exkzp[address] [place] [address]Dr. Shahbaz Rogel AST [Catalytic activity/Vol] 16 U/L Normal 15-37 [facility] Comment on above: Performed By: #### B COMPENSATION AND BENEFITS ANALYST, CRP, CMP ####[facility] Kwkithz[address] [place], [place] [address]Dr. Shahbaz Rogel Bilirubin [Mass/Vol] 0.2 mg/dL Normal 0.2-1.0 [facility] Comment on above: Performed By: #### B COMPENSATION AND BENEFITS ANALYST, CRP, CMP ####[facility] Qxyyuhaliw[address] [place], [place] [address]Dr. Shahbaz Rogel Calcium [Mass/Vol] 9.3 mg/dL Normal 8.5-10.1 [facility] Comment on above: Performed By: #### B COMPENSATION AND BENEFITS ANALYST, CRP, CMP ####[facility] Guqqxuj[address] [place], [place] [address]Dr. Shahbaz Rogel Chloride [Moles/Vol] 105 mmol/L Normal 98-107 [facility] Comment on above: Performed By: #### B COMPENSATION AND BENEFITS ANALYST, CRP, CMP ####[facility] Wmoacfnzeb[address] [place], [place] [address]Dr. Shahbaz Rogel CO2 [Moles/Vol] 23.2 mmol/L Normal 21.0-32.0 [facility] Comment on above: Performed By: #### B COMPENSATION AND BENEFITS ANALYST, CRP, CMP ####[facility] Stlccvtclf[address] [place], [place] [address]Dr. Shahbaz Rogel Creatinine [Mass/Vol] 1.23 mg/dL Critically high 0.55-1.02 [facility] Comment on above: Performed By: #### B COMPENSATION AND BENEFITS ANALYST, CRP, CMP ####[facility] Gjsvfrbbhu[address] [place], [place] [address]Dr. Shahbaz Rogel EGFR-AF MARSHALLESE 55 mL/min/1.73m2 Critically low >=60 [facility] Comment on above: Performed By: #### B COMPENSATION AND BENEFITS ANALYST, CRP, CMP ####[facility] Tfpllnszlr[address] [place] [address]Dr. Shahbaz Rogel EGFR-NON AF MARSHALLESE 45 mL/min/1.73m2 Critically low >=60 [facility] Comment on above: Performed By: #### B COMPENSATION AND BENEFITS ANALYST, CRP, CMP ####[facility] Uemhtetzqr[address] [place], [place] [address]Dr. Shahbaz Rogel Globulin (S) [Mass/Vol] 3.3 g/dL Normal [facility] Comment on above: Performed By: #### B COMPENSATION AND BENEFITS ANALYST, CRP, CMP ####[facility] Ejgfzjyezq[address] [place], [place] [address]Dr. Shahbaz Rogel Glucose [Mass/Vol] 171 mg/dL Critically high 74-106 [facility] Comment on above: Performed By: #### B COMPENSATION AND BENEFITS ANALYST, CRP, CMP ####[facility] Rmhbtzcpqe[address] [place], [place] [address]Dr. Shahbaz Rogel Potassium [Moles/Vol] 3.6 mmol/L Normal 3.5-5.1 [facility] Comment on above: Performed By: #### B COMPENSATION AND BENEFITS ANALYST, CRP, CMP ####[facility] Hmvmeqhxnc[address] [place], [place] [address]Dr. Shahbaz Rogel Protein [Mass/Vol] 6.7 g/dL Normal 6.4-8.2 [facility] Comment on above: Performed By: #### B COMPENSATION AND BENEFITS ANALYST, CRP, CMP ####[facility] Okgyeierzk4[address] [place], [place] [address]Dr. Shahbaz Rogel Sodium [Moles/Vol] 138 mmol/L Normal 136-145 [facility] Comment on above: Performed By: #### B COMPENSATION AND BENEFITS ANALYST, CRP, CMP ####[facility] [address]vxxnlxy[address] [place] [address]Dr. Shahbaz Rogel Urea nitrogen [Mass/Vol] 21.0 mg/dL Critically high 7.0-18.0 [facility] Comment on above: Performed By: #### B COMPENSATION AND BENEFITS ANALYST, CRP, CMP ####[facility] Crcapgzity34[address] [place], [place] [address]Dr. Shahbaz Rogel Urea nitrogen/Creatinine [Mass ratio] 17.1 mg/mg Normal [facility] Comment on above: Performed By: #### B COMPENSATION AND BENEFITS ANALYST, CRP, CMP ####[facility] Lnkowbtban[address] [place], [place] [address]Dr. Shahbaz Rogel XR CHEST 2 Von 07-06-2022 XR CHEST 2 V Normal [facility] BNPon 07-05-2022 Natriuretic peptide B (Bld) [Mass/Vol] 83.0 pg/mL Normal <=900.0 [facility] Comment on above: Performed By: #### C RP, CMP, BNP ####[facility] Ztwpvnjdof[address] [place], [place] [address]Dr. Shahbaz Rogel CBC AUTO DIFFon 07-05-2022 BASO # 0.0 103/ul Normal 0.0-0.1 [facility] Comment on above: Performed By: #### C BC ####[facility] Huufksjimw[address] [place], [place] [address]Dr. Shahbaz Rogel Basophils/100 WBC (Bld) 0.4 % Normal 0.2-2.0 [facility] Comment on above: Performed By: #### C BC ####[facility] Nyedlamqmt[address] [place], [place] [address]Dr. Shahbaz Rogel EO # 0.1 103/ul Normal 0.0-0.7 [facility] Comment on above: Performed By: #### C BC ####[facility] Ngeixxtyts[address] [place], [place] [address]Dr. Shahbaz Rogel Eosinophils/100 WBC (Bld) 2.9 % Normal 0.9-7.0 [facility] Comment on above: Performed By: #### C BC ####[facility] Fwuzfdsole19[address] [place], [place] [address]Dr. Shahbaz Rogel Erythrocyte distribution width (RBC) [Ratio] 13.4 % Normal 11.0-15.0 [facility] Comment on above: Performed By: #### C BC ####[facility] [address]alsgxujo[address] [place] [address]Dr. Shahbaz Rogel Hematocrit (Bld) [Volume fraction] 41.7 % Normal 36.0-48.0 [facility] Comment on above: Performed By: #### C BC ####[facility] Izjfwfttrt[address] [place] [address]Dr. Shahbaz Rogel Hemoglobin (Bld) [Mass/Vol] 12.9 g/dL Normal 12.0-16.0 [facility] Comment on above: Performed By: #### C BC ####[facility] Uudjlbanvs4[address] [place], [place] [address]Dr. Shahbaz Rogel IG # 0.00 10e3/ul Normal 0.00-0.03 [facility] Comment on above: Performed By: #### C BC ####[facility] Xibobnaott94[address] [place], [place] [address]Dr. Shahbaz Rogel IG % 0.0 % Normal 0.0-0.5 [facility] Comment on above: Performed By: #### C BC ####[facility] Tvmucuvzsg[address] [place], [place] [address]Dr. Lilajarrod Rogel LYMPH # 1.5 103/ul Normal 1.2-3.8 [facility] Comment on above: Performed By: #### C BC ####[facility] Bwlcjzgqnt[address] [place], [place] [address]Dr. Lilajarrod Rogel Lymphocytes/100 WBC (Bld) 32.9 % Normal 20.5-60.0 [facility] Comment on above: Performed By: #### C BC ####[facility] Urasuihcls[address] [place] [address]DrChen Lilajarrod Rogel MANUAL DIFF REQ NO Normal [facility] Comment on above: Performed By: #### C BC ####[facility] Buezjidw[address] [place], [place] [address]DrChen Lilajarrod Rogel MCH (RBC) [Entitic mass] 28.0 pg Normal 26.7-34.0 [facility] Comment on above: Performed By: #### C BC ####[facility] Sydxedssou[address] [place], [place] [address]Dr. Shahbaz Rogel MCHC (RBC) [Mass/Vol] 30.9 g/dL Normal 29.9-35.2 [facility] Comment on above: Performed By: #### C BC ####[facility] [address]qjpatt[address] [place] [id number]. Shahbaz Juan F MCV (RBC) [Entitic vol] 90.5 fL Normal 81.0-99.0 [facility] Comment on above: Performed By: #### C BC ####[facility] [address] [place] [address]Dr. Shahbaz Juan F MONO # 0.4 103/ul Normal 0.3-0.8 [facility] Comment on above: Performed By: #### C BC ####[facility] Rympfzibiw[address] [place] [address]Dr. Shahbaz Rogel Monocytes/100 WBC (Bld) 8.0 % Normal 1.7-12.0 [facility] Comment on above: Performed By: #### C BC ####[facility] Zfhedlubwc[address] [place], [place] [address]Dr. Shahbaz Rogel NEUT # 2.5 103/ul Normal 1.4-6.5 [facility] Comment on above: Performed By: #### C BC ####[facility] F[address]cfokvczo[address] [place] [address]Dr. Lilajarrod Rogel Neutrophils/100 WBC (Bld) 55.8 % Normal 43.0-75.0 [facility] Comment on above: Performed By: #### C BC ####[facility] Aksxdeusju[address] [place] [address]Dr. Shahbaz Rogel Platelet mean volume (Bld) [Entitic vol] 9.7 fL Normal 9.5-13.5 [facility] Comment on above: Performed By: #### C BC ####[facility] Oyrclyscui[address] [place] [address]Dr. Shahbaz Rogel PLT 158 103/ul Normal 150-450 [facility] Comment on above: Performed By: #### C BC ####[facility] Eoffiylxgg[address] [place] [address]Dr. Shahbaz Rogel RBC 4.61 106/ul Normal 4.20-5.40 [facility] Comment on above: Performed By: #### C BC ####[facility] Wpztreafdv27[address] [place] [address]Dr. Shahbaz Rogel WBC 4.5 103/ul Normal 4.0-11.0 [facility] Comment on above: Performed By: #### C BC ####[facility] Vvptafgpzd[address] [place] [address]Dr. Shahbaz Rogel CRPon 07-05-2022 CRP [Mass/Vol] mg/L Normal <=1.0 [facility] Comment on above: Performed By: #### C RP, CMP, BNP ####[facility] Vuoymtdeoe[address] [place] [address]Dr. Shahbaz Juan F ECHO LIMITED STUDYon ECHO LIMITED STUDY Normal [facility] PROF 14(COMP METB)on Albumin [Mass/Vol] 3.2 g/dL Critically low 3.4-5.0 e [facility] Comment on above: Performed By: #### C RP, CMP, BNP ####[facility] C[address]ajszsuzx[address] [place] [address]Dr. Shahbaz Rogel Albumin/Globulin [Mass ratio] 1.0 {ratio} Normal [facility] Comment on above: Performed By: #### C RP, CMP, BNP ####[facility] Yrtwepkved40[address] [place] [address]Dr. Shahbaz Juan F ALP [Catalytic activity/Vol] 88 U/L Normal 46-116 [facility] Comment on above: Performed By: #### C RP, CMP, BNP ####[facility] Vldfxmjjma7904 [place] [address]Dr. Lilajarrod Rogel ALT [Catalytic activity/Vol] 17 U/L Normal 14-59 [facility] Comment on above: Performed By: #### C RP, CMP, BNP ####[facility] Kycaofhujm4[address] [place] [address]Dr. Shahbaz Rogel Anion gap [Moles/Vol] 12.5 mmol/L Normal Th e [facility] Comment on above: Performed By: #### C RP, CMP, BNP ####[facility] Jnyhciuniw[address] [place] [address]Dr. Shahbaz Rogel AST [Catalytic activity/Vol] 18 U/L Normal 15-37 [facility] Comment on above: Performed By: #### C RP, CMP, BNP ####[facility] Grinpccydv[address] [place] [address]Dr. Shahbaz Rogel Bilirubin [Mass/Vol] 0.3 mg/dL Normal 0.2-1.0 [facility] Comment on above: Performed By: #### C RP, CMP, BNP ####[facility] [address]xgflfwg[address] [place], [place] [address]Dr. Shahbaz Rogel Calcium [Mass/Vol] 8.9 mg/dL Normal 8.5-10.1 [facility] Comment on above: Performed By: #### C RP, CMP, BNP ####[facility] Afoqwawlec[address] [place], [place] [address]Dr. Shahbaz Rogel Chloride [Moles/Vol] 103 mmol/L Normal 98-107 [facility] Comment on above: Performed By: #### C RP, CMP, BNP ####[facility] Oiatvvefjw[address] [place], [place] [address]Dr. Shahbaz Rogel CO2 [Moles/Vol] 28.1 mmol/L Normal 21.0-32.0 [facility] Comment on above: Performed By: #### C RP, CMP, BNP ####[facility] Drmsfjkdao[address] [place], [place] [address]Dr. Shahbaz Rogel Creatinine [Mass/Vol] 1.24 mg/dL Critically high 0.55-1.02 [facility] Comment on above: Performed By: #### C RP, CMP, BNP ####[facility] [address]qeeunbwqq[address] [place], [place] [address]Dr. Shahbaz Rogel EGFR-AF MARSHALLESE 54 mL/min/1.73m2 Critically low >=60 [facility] Comment on above: Performed By: #### C RP, CMP, BNP ####[facility] Ioemfpmxgn[address] [place] [id number]. Shahbza Rogel EGFR-NON AF MARSHALLESE 45 mL/min/1.73m2 Critically low >=60 [facility] Comment on above: Performed By: #### C RP, CMP, BNP ####[facility] Vuxudnhepq[address] [place] [address]Dr. Shahbaz Rogel Globulin (S) [Mass/Vol] 3.1 g/dL Normal [facility] Comment on above: Performed By: #### C RP, CMP, BNP ####[facility] Qzfedwqzly33[address] [place] [address]Dr. Shahbaz Rogel Glucose [Mass/Vol] 115 mg/dL Critically high 74-106 T [facility] Comment on above: Performed By: #### C RP, CMP, BNP ####[facility] Zzzfzebtmb5534 [place] [address]Dr. Shahbaz Rogel Potassium [Moles/Vol] 3.6 mmol/L Normal 3.5-5.1 [facility] Comment on above: Performed By: #### C RP, CMP, BNP ####[facility] Rmgkndxgxc34[address] [place] [address]Dr. Shahbaz Rogel Protein [Mass/Vol] 6.3 g/dL Critically low 6.4-8.2 Th [facility] Comment on above: Performed By: #### C RP, CMP, BNP ####[facility] Wazqjrjntw[address] [place] [address]Dr. Shahbaz Rogel Sodium [Moles/Vol] 140 mmol/L Normal 136-145 [facility] Comment on above: Performed By: #### C RP, CMP, BNP ####[facility] Vfnnolcckx38[address] [place] [address]Dr. Shahbaz Rogel Urea nitrogen [Mass/Vol] 18.0 mg/dL Normal 7.0-18.0 [facility] Comment on above: Performed By: #### C RP, CMP, BNP ####[facility] Aebpyycyec[address] [place] [address]Dr. Shahbaz Rogel Urea nitrogen/Creatinine [Mass ratio] 14.5 mg/mg Normal [facility] Comment on above: Performed By: #### C RP, CMP, BNP ####[facility] Cdwccpcvaa5723 [place] [address]Dr. Shahbaz Rogel T3, TOTAL (TRIIODOTHYRONINE) on 07-05-2022 T3, TOTAL 95 ng/dL Normal 71-180 [facility] Comment on above: Performed By: #### T 3TOTAL ####[facility] Hnmrxnhluf[address] [place], [place] [address]Dr. Shahbaz Rogel CARDIAC ROSALINA 3-6on 2 CK [Catalytic activity/Vol] 78 U/L Normal 26-192 [facility] Comment on above: Performed By: #### C MREP ####[facility] Jdxftxlnfb[address] [place], [place] [address]Dr. Shahbaz Rogel CK.MB [Mass/Vol] 1.44 ng/mL Normal <=3.60 [facility] Comment on above: Performed By: #### C MREP ####[facility] Pkapbhiryq[address] [place], [place] [address]Dr. Shahbaz Juan F HSTROP 9.0 pg/mL Normal 4.0-51.3 [facility] Comment on above: Result Comment: CUT- OFF POINTS HAVE BEEN ESTABLISHED BASED ON THE FOURTH UNIVERSAL DEFINITIONS OF MYOCARDIALINFARCTION. THE UPPER REFERENCE LIMIT (URL) OF TROPONIN, DEFINED THE 99TH PERCENTILE OFcTnI DISTRIBUTION IN A REFERENCE POPULATION, HAS BEEN CONFIRMED THE DECISION THRESHOLDFOR SC DIAGNOSIS. Performed By: #### C MREP ####[facility] Lzmckpsppm[address] [place], [place] [address]Dr. Lilajarrod Rogel CK [Catalytic activity/Vol] 88 U/L Normal 26-192 [facility] Comment on above: Performed By: #### C MREP ####[facility] Qykppmitdx[address] [place], [place] [address]Dr. Shahbaz Rogel CK.MB [Mass/Vol] 1.38 ng/mL Normal <=3.60 [facility] Comment on above: Performed By: #### C MREP ####[facility] Tkdzsdfojq[address] [place], [place] [address]Dr. Shahbaz Rogel HSTROP 7.0 pg/mL Normal 4.0-51.3 [facility] Comment on above: Result Comment: CUT- OFF POINTS HAVE BEEN ESTABLISHED BASED ON THE FOURTH UNIVERSAL DEFINITIONS OF MYOCARDIALINFARCTION. THE UPPER REFERENCE LIMIT (URL) OF TROPONIN, DEFINED THE 99TH PERCENTILE OFcTnI DISTRIBUTION IN A REFERENCE POPULATION, HAS BEEN CONFIRMED THE DECISION THRESHOLDFOR SC DIAGNOSIS. Performed By: #### C MREP ####[facility] [address]ssgz[address]jzj[address] [place] [address]Dr. Shahbaz Rogel CARDIAC ROSALINA ADMITon 022 CK [Catalytic activity/Vol] 87 U/L Normal 26-192 [facility] Comment on above: Performed By: #### C CINDY PAZ ####[facility] [address] [place] [address]. Shahbaz Rogel CK.MB [Mass/Vol] 1.80 ng/mL Normal <=3.60 [facility] Comment on above: Performed By: #### C CINDY PAZ ####[facility] Ixoshiofvd[address] [place], [place] [address]Dr. Shahbaz Rogel HSTROP 7.6 pg/mL Normal 4.0-51.3 [facility] Comment on above: Result Comment: CUT- OFF POINTS HAVE BEEN ESTABLISHED BASED ON THE FOURTH UNIVERSAL DEFINITIONS OF MYOCARDIALINFARCTION. THE UPPER REFERENCE LIMIT (URL) OF TROPONIN, DEFINED THE 99TH PERCENTILE OFcTnI DISTRIBUTION IN A REFERENCE POPULATION, HAS BEEN CONFIRMED THE DECISION THRESHOLDFOR SC DIAGNOSIS. Performed By: #### C CINDY PAZ ####[facility] Lehzcpuehm4[address] [place] [address]Dr. Shahbaz Rogel LEN 67 ng/mL Normal 9-82 [facility] Comment on above: Performed By: #### C CINDY PAZ ####[facility] Qbkxctbfqs4723 [place] [address]Dr. Shahbaz Rogel CBC AUTO DIFFon 07-04-2022 BASO # 0.0 103/ul Normal 0.0-0.1 [facility] Comment on above: Performed By: #### C BC ####[facility] Whfiymmvdc9545 [place] [id number]. Shahbaz Rogel Basophils/100 WBC (Bld) 0.7 % Normal 0.2-2.0 [facility] Comment on above: Performed By: #### C BC ####[facility] Jleblcwzvf9[address] [place] [address]Dr. Shahbaz Rogel EO # 0.1 103/ul Normal 0.0-0.7 [facility] Comment on above: Performed By: #### C BC ####[facility] Dbeozmegfj44[address] [place] [address]Dr. Shahbaz Rogel Eosinophils/100 WBC (Bld) 3.4 % Normal 0.9-7.0 [facility] Comment on above: Performed By: #### C BC ####[facility] Usxtmnsfag[address] [place], [place] [address]Dr. Shahbaz Rogel Erythrocyte distribution width (RBC) [Ratio] 13.3 % Normal 11.0-15.0 [facility] Comment on above: Performed By: #### C BC ####[facility] [address]ftpyvfd[address] [place], [place] [address]Dr. Shahbaz Rogel Hematocrit (Bld) [Volume fraction] 42.1 % Normal 36.0-48.0 [facility] Comment on above: Performed By: #### C BC ####[facility] [address]wo[address] [place], [place] [id number]. Shahbaz Rogel Hemoglobin (Bld) [Mass/Vol] 13.3 g/dL Normal 12.0-16.0 [facility] Comment on above: Performed By: #### C BC ####[facility] Kxjhddliyd24[address] [place] [address]Dr. Shahbaz Rogel IG # 0.01 10e3/ul Normal 0.00-0.03 [facility] Comment on above: Performed By: #### C BC ####[facility] Hkdxrtukhi67[address] [place] [address]Dr. Shahbaz Rogel IG % 0.3 % Normal 0.0-0.5 [facility] Comment on above: Performed By: #### C BC ####[facility] Vtrmnaudzy8825 [place] [address]Dr. Shahbaz Juan F LYMPH # 1.0 103/ul Critically low 1.2-3.8 [facility] Comment on above: Performed By: #### C BC ####[facility] Oscubylgpt6[address] [place] [address]Dr. Shahbaz Rogel Lymphocytes/100 WBC (Bld) 35.6 % Normal 20.5-60.0 [facility] Comment on above: Performed By: #### C BC ####[facility] Zyfltomojl8[address] [place] [address]Dr. Lilajarrod Rogel MANUAL DIFF REQ NO Normal [facility] Comment on above: Performed By: #### C BC ####[facility] Hgjdudynnl6[address] [place] [address]Dr. Shahbaz Juan F MCH (RBC) [Entitic mass] 27.9 pg Normal 26.7-34.0 [facility] Comment on above: Performed By: #### C BC ####[facility] Yrokzddmvb3137 [place] [address]Dr. Shahbaz Rogel MCHC (RBC) [Mass/Vol] 31.6 g/dL Normal 29.9-35.2 [facility] Comment on above: Performed By: #### C BC ####[facility] Tmoxjtpedx1750 [place] [address]Dr. Shahbaz Juan F MCV (RBC) [Entitic vol] 88.3 fL Normal 81.0-99.0 [facility] Comment on above: Performed By: #### C BC ####[facility] Sxchlakkme037[address] [place] [address]Dr. Shahbaz Juan F MONO # 0.2 103/ul Critically low 0.3-0.8 [facility] Comment on above: Performed By: #### C BC ####[facility] Vftjzdbzyr1892 [place] [address]Dr. Shahbaz Juan F Monocytes/100 WBC (Bld) 7.9 % Normal 1.7-12.0 [facility] Comment on above: Performed By: #### C BC ####[facility] Kwtdntkgyy5501 [place] [address]Dr. Shahbaz Rogel NEUT # 1.5 103/ul Normal 1.4-6.5 [facility] Comment on above: Performed By: #### C BC ####[facility] Oyxoykjsxk5018 [place] [address]Dr. Shahbaz Rogel Neutrophils/100 WBC (Bld) 52.1 % Normal 43.0-75.0 [facility] Comment on above: Performed By: #### C BC ####[facility] Ygygyvddjc7489 [place] [address]Dr. Shahbaz Rogel Platelet mean volume (Bld) [Entitic vol] 9.5 fL Normal 9.5-13.5 [facility] Comment on above: Performed By: #### C BC ####[facility] Qsmqxikqnt1766 [place] [address]Dr. Shahbaz Rogel PLT 172 103/ul Normal 150-450 [facility] Comment on above: Performed By: #### C BC ####[facility] Mlghiioyrr[address] [place], [place] [address]Dr. Shahbaz Rogel RBC 4.77 106/ul Normal 4.20-5.40 [facility] Comment on above: Performed By: #### C BC ####[facility] Amjfrhcfqr[address] [place] [address]Dr. Shahbaz Rogel WBC 2.9 103/ul Critically low 4.0-11.0 [facility] Comment on above: Performed By: #### C BC ####[facility] [address]zhepsfwnh[address] [place], [place] [address]Dr. Shahbaz Rogel CELL COUNT BODY FLUIDon 10-0 -2021 BASOS Normal [facility] Comment on above: Performed By: #### B FCC ####[facility] [address]ivzlbm[address] [place], [place] [address]Dr. Shahbaz Rogel Eosinophils/100 WBC (Bld) 4 % Normal [facility] Comment on above: Performed By: #### B FCC ####[facility] Axsqpcoikz[address] [place], [place] [address]Dr. Shahbaz Juan F Lymphocytes/100 WBC (Bld) 12 % Normal [facility] Comment on above: Performed By: #### B FCC ####[facility] Wlaioybcze13[address] [place] [address]Dr. Shahbaz Rogel Monocytes/100 WBC (Bld) 4 % Normal [facility] Comment on above: Performed By: #### B FCC ####[facility] Mnourqqqsm[address] [place] [address]Dr. Shahbaz Rogel RBC 67 cubic mm Normal [facility] Comment on above: Performed By: #### B FCC ####[facility] Itwhxqmphb4[address] [place] [address]Dr. Shahbaz Rogel SEGS 80 % Normal [facility] Comment on above: Performed By: #### B FCC ####[facility] [facility] [address]fdragrdsp[address] [place], [place] [address]Dr. Shahbaz Rogel WBC BODY FLUID 223 cubic mm Normal [facility] Comment on above: Performed By: #### B FCC ####[facility] Gbxulxzhez[address] [place], [place] [address]Dr. Shahbaz Rogel CULTURE OTHERon 07-04-2022 CULTURE OTHER Culture Observations : NO GROWTH AT 48 HOURS. Normal [facility] Comment on above: Performed By: #### O THCX ####[facility] Wmivuhzhbl[address] [place], [place] [address]Dr. Shahbaz Rogel CYTOLOGYon 07-04-2022 SENT TO REF LAB 07/04/22 Normal [facility] Comment on above: Performed By: #### C YTO ####[facility] Prufawwh[address] [place], [place] [address]Dr. Shahbaz Rogel Covid-19 PCR (CVDTB)on SARS-CoV-2 (COVID-19) RNA PAVAN+probe Ql (Unsp spec) Not detected Normal NOT DETECTED [facility] Comment on above: Result Comment: When [...] for this test is supported by the [place] of Health and Human Service's declaration that [...] Performed By: #### C VDTBH ####[facility] Zlzediiwtr[address] [place], [place] [address]Dr. Shahbaz Juan F GRAM STAINon 07-04-2022 COMMENTS NO ORGANISMS OBSERVED Normal [facility] Comment on above: Performed By: #### G STAIN ####[facility] Qvlsoxsszy[address] [place], [place] [address]Dr. Lilajarrod Juan F DIPHTHEROIDS Normal [facility] Comment on above: Performed By: #### G STAIN ####[facility] Plmwkxzfcn[address] [place], [place] [address]Dr. Lilajarrod Rogel EPITHELIALS Normal [facility] Comment on above: Performed By: #### G STAIN ####[facility] Gxqzymeirm[address] [place], [place] [address]Dr. Lilajarrod Rogel FUNGAL ELEMENTS Normal [facility] Comment on above: Performed By: #### G STAIN ####[facility] Bujyhdodzu[address] [place], [place] [address]Dr. Shahbaz Rogel GRAM NEG BACILLI Normal [facility] Comment on above: Performed By: #### G STAIN ####[facility] [address] [place] [address]Dr. Shahbaz Rogel GRAM NEG DIPPLOCOCCI Normal [facility] Comment on above: Performed By: #### G STAIN ####[facility] [address]whfkkkfa[address] [place] [address]Dr. Shahbaz Rogel GRAM POS BACILLI Normal [facility] Comment on above: Performed By: #### G STAIN ####[facility] Sizeofmlbg[address] [place] [address]Dr. Shahbaz Rogel GRAM POSITIVE COCCI Normal [facility] Comment on above: Performed By: #### G STAIN ####[facility] Eph[address]rkojc[address] [place] [address]Dr. Shahbaz Rogel GRAM STAIN SOURCE Rt Lower Lobe Bronch ial Washing Normal [facility] Comment on above: Performed By: #### G STAIN ####[facility] Pnamkxtpll[address] [place] [address]Dr. Shahbaz Rogel GS_DIPTH Normal [facility] Comment on above: Performed By: #### G STAIN ####[facility] Tdhcuwunth[address] [place], [place] [address]Dr. Shahbaz Rogel WBC RARE Normal [facility] Comment on above: Performed By: #### G STAIN ####[facility] Etomumsgtz[address] [place], [place] [address]Dr. Shahbaz Rogel PROF 14(COMP METB)on 022 Albumin [Mass/Vol] 3.6 g/dL Normal 3.4-5.0 [facility] Comment on above: Performed By: #### C JACKSON CMADM ####[facility] Rzykrseltw[address] [place], [place] [address]Dr. Shahbaz Rogel Albumin/Globulin [Mass ratio] 1.1 {ratio} Normal [facility] Comment on above: Performed By: #### C JACKSON, CMADM ####[facility] Pmdisbpvbp[address] [place], [place] [address]Dr. Shahbaz Rogel ALP [Catalytic activity/Vol] 102 U/L Normal 46-116 [facility] Comment on above: Performed By: #### C JACKSON, CMADM ####[facility] L[address]ypyhpv[address] [place] [address]Dr. Shahbaz Rogel ALT [Catalytic activity/Vol] 19 U/L Normal 14-59 [facility] Comment on above: Performed By: #### C JACKSON, CMADM ####[facility] Inmlixuhyf[address] [place] [address]Dr. Shahbaz Rogel Anion gap [Moles/Vol] 9.5 mmol/L Normal [facility] Comment on above: Performed By: #### C JACKSON, CMADM ####[facility] Demynemxzr[address] [place] [address]Dr. Shahbaz Rogel AST [Catalytic activity/Vol] 19 U/L Normal 15-37 [facility] Comment on above: Performed By: #### C JACKSON, CMADM ####[facility] Vyhsxxkalb[address] [place] [address]Dr. Shahbaz Rogel Bilirubin [Mass/Vol] 0.3 mg/dL Normal 0.2-1.0 [facility] Comment on above: Performed By: #### C JACKSON, CMADM ####[facility] Tkpejtztuq6[address] [place] [address]Dr. Shahbaz Rogel Calcium [Mass/Vol] 8.8 mg/dL Normal 8.5-10.1 [facility] Comment on above: Performed By: #### C JACKSON, CMADM ####[facility] Cmhagzgmsj8[address] [place], [place] [address]Dr. Shahbaz Rogel Chloride [Moles/Vol] 107 mmol/L Normal 98-107 [facility] Comment on above: Performed By: #### C JACKSON, CMADM ####[facility] Xooqajdfcq[address] [place], [place] [address]Dr. Shahbaz Rogel CO2 [Moles/Vol] 29.5 mmol/L Normal 21.0-32.0 [facility] Comment on above: Performed By: #### C JACKSON, CMADM ####[facility] Vafeqotcwc[address] [place], [place] [address]Dr. Shahbaz Rogel Creatinine [Mass/Vol] 0.97 mg/dL Normal 0.55-1.02 [facility] Comment on above: Performed By: #### C JACKSON, CMADM ####[facility] Rmmfqnnaqj[address] [place], [place] [address]Dr. Shahbaz Rogel EGFR-AF MARSHALLESE >60 Normal >=60 [facility] Comment on above: Performed By: #### C JACKSON, CMADM ####[facility] Trkntxheou47[address] [place], [place] [address]Dr. Shahbaz Rogel EGFR-NON AF MARSHALLESE 59 mL/min/1.73m2 Critically low >=60 [facility] Comment on above: Performed By: #### C JACKSON, CMAROXANNA ####[facility] [address]oftzulqv[address] [place] [address]Dr. Shahbaz Rogel Globulin (S) [Mass/Vol] 3.2 g/dL Normal [facility] Comment on above: Performed By: #### C JACKSON, CMADM ####[facility] Lgswwelekv67[address] [place] [address]Dr. Shahbaz Rogel Glucose [Mass/Vol] 89 mg/dL Normal 74-106 [facility] Comment on above: Performed By: #### C JACKSON, CMAROXANNA ####[facility] Ckirlpecti[address] [place], [place] [address]Dr. Shahbaz Rogel Potassium [Moles/Vol] 4.0 mmol/L Normal 3.5-5.1 [facility] Comment on above: Performed By: #### C JACKSON, CMAROXANNA ####[facility] Lkmnyepxyw[address] [place], [place] [address]Dr. Shahbaz Rogel Protein [Mass/Vol] 6.8 g/dL Normal 6.4-8.2 [facility] Comment on above: Performed By: #### C JACKSON, CINDY ####[facility] Mfxzqdwhgg[address] [place], [place] [address]Dr. Shahbaz Rogel Sodium [Moles/Vol] 142 mmol/L Normal 136-145 [facility] Comment on above: Performed By: #### C JACKSON, CMADM ####[facility] Ecddbldmsr[address] [place], [place] [address]Dr. Shahbaz Rogel Urea nitrogen [Mass/Vol] 11.0 mg/dL Normal 7.0-18.0 [facility] Comment on above: Performed By: #### C CINDY PAZ ####[facility] Orlgcvrnnj6[address] [place], [place] [address]Dr. Shahbaz Rogel Urea nitrogen/Creatinine [Mass ratio] 11.3 mg/mg Normal [facility] Comment on above: Performed By: #### C JACKSON CMADM ####[facility] Lxgcgtltbg66[address] [place], [place] [address]Dr. Shahbaz Rogel T4on 07-04-2022 T4 [Mass/Vol] 4.70 ug/dL Critically low 4.80-13.90 [facility] Comment on above: Performed By: #### T SH, T4 ####[facility] Aqhs[address]hrxih[address] [place] [address]Dr. Shahbaz Rogel TSHon 07-04-2022 TSH 0.359 uIU/mL Normal 0.358-3.74 0 [facility] Comment on above: Performed By: #### T SH, T4 ####[facility] Nfpeljivkg[address] [place] [address]Dr. Shahbaz Rogel XR CHEST 1 Von 07-04-2022 XR CHEST 1 V Normal [facility] XR CHEST 1 V Normal [facility] CHLAMYDIA PNEUMONIAE IgG IgM IgAon 06-27-2022 Chlamydia pneumoniae IgA <1:16 Normal Neg:<1:16 [facility] Comment on above: Performed By: #### C HLMPNE ####[facility] [address]fqmshpkqz[address] [place], [place] [address]Dr. [facility] Chlamydia pneumoniae IgG <1:16 Normal Neg:<1:16 [facility] Comment on above: Performed By: #### C HLMPNE ####[facility] Twdiewafqw[address] [place], [place] [address]Dr. jarrod [facility] Chlamydia pneumoniae IgM <1:10 Normal Neg:<1:10 [facility] Comment on above: Performed By: #### C HLMPNE ####[facility] [address]xrquprh[address] [place] [address]Dr. Shahbaz Rogel Test Information: Comment Normal [facility] Comment on above: Result Comment: This [...] Performed By: #### C HLMPNE ####[facility] Mcswsqopyi63[address] [place], [place] [address]Dr. Shahbaz Rogel Covid-19 PCR (CVDTB)on 06-03 SARS-CoV-2 (COVID-19) RNA PAVAN+probe Ql (Unsp spec) Not detected Normal NOT DETECTED [facility] Comment on above: Result Comment: This test is not yet approved or cleared by the [place] FDA. When there are no FDA-approved or cleared tests available, and other criteria are met, FDA can make tests available under an emergency access mechanism called an Emergency Use Authorization (EUA). The EUA for this test is supported by the [place] of Health and Human Service's (HHS's) declaration [...] Performed By: #### C VDTBH ####[facility] Mvvrfxigii[address] [place], [place] [address]Dr. Shahbaz Rogel CYCLIC CITRULLINATED PEPTIDE AB (CCP)on 06-25-2022 CCP Antibodies IgG/IgA 13 units Normal 0-19 [facility] Comment on above: Result Comment: Nega tive <20 Weak positive 20 - 39 Moderate positive 40 - 59 Strong positive >59 Performed By: #### C CPAB ####[facility] [address]zwlgdzr[address] [place], [place] [address]Dr. Shahbaz Rogel ANTI NEUTROPHIL CYTOPLASMIC AB (ANCA) PRon 06-24-2022 Anti-MPO Antibodies <0.2 Normal 0.0-0.9 [facility] Comment on above: Result Comment: Perf ormed at: BN Performed By: #### A NCAP ####[facility] Julaudlnrg[address] [place], [place] [address]Dr. Shahbaz Rogel Anti-PR3 Antibodies 5.0 units Critically high 0.0-0.9 [facility] Comment on above: Result Comment: Perf ormed at: BN Performed By: #### A NCAP ####[facility] [address] [place] [address]Dr. Shahbaz Rogel Atypical pANCA <1:20 Normal Neg:<1:20 [facility] Comment on above: Result Comment: The atypical pANCA pattern has been observed in a significantpercentage of patients with ulcerative colitis, primary sclerosingcholangitis and autoimmune hepatitis.Performed at: CB Performed By: #### A NCAP ####[facility] [address]xprtutd[address] [place] [address]Dr. Shahbaz Rogel Cytoplasmic (C-ANCA) <1:20 Normal Neg:<1:20 [facility] Comment on above: Result Comment: Perf ormed at: CB Performed By: #### A NCAP ####[facility] Vbdemssium[address] [place] [address]Dr. Shahbaz Rogel Perinuclear (P-ANCA) 1:80 Critically high Neg:<1:20 [facility] Comment on above: Result Comment: The presence of positive fluorescence exhibiting P-ANCA or C-ANCApatterns alone is not specific for the diagnosis of Ada'sGranulomatosis (WG) or microscopic polyangiitis. Decisions abouttreatment should not be based solely on ANCA IFA results. TheInternational ANCA Group Consensus recommends follow up testing ofpositive sera with both RI-3 and MPO-ANCA enzyme immunoassays. Asmany as 5% serum samples are positive only by EIA.Ref. AM J Clin Pathol 1999;111:507-513.Performed at: CB Performed By: #### A NCAP ####[facility] Drejoclrae[address] [place] [address]Dr. Shahbaz Rogel ANTIGLOMERULAR BASEMENT MEMB ANTOINE ABSon 06-24-2022 Anti-GBM Antibodies <0.2 Normal 0.0-0.9 [facility] Comment on above: Performed By: #### A GBM ####[facility] Dmfbmqkkds[address] [place] [id number]. Shahbaz Rogel SHAHANA EIA W/REFLEX 5 BIOMARKER Son 06-23-2022 SHAHANA Direct Negative Normal Negative [facility] Comment on above: Performed By: #### A NARF ####[facility] Whwbpnpkcd[address] [place], [place] [address]Dr. Shahbaz Rogel ANTISCLERODERMA ABon 022 Antiscleroderma-70 Antibodies <0.2 Normal 0.0-0.9 [facility] Comment on above: Performed By: #### A NSCLER ####[facility] Vutbsqutxr[address] [place], [place] [address]Dr. Shahbaz Rogel RHEUMATOID FACTORon 06-23-20 RA Latex Turbid. <10.0 Normal <14.0 [facility] Comment on above: Performed By: #### R F ####[facility] Znprgrcuyy[address] [place], [place] [address]Dr. Shahbaz Rogel CBC AUTO DIFFon 06-22-2022 BASO # 0.0 103/ul Normal 0.0-0.1 [facility] Comment on above: Performed By: #### C BC ####[facility] Bxmcoxqvvo[address] [place], [place] [address]Dr. Lilajarrod Rogel Basophils/100 WBC (Bld) 0.5 % Normal 0.2-2.0 [facility] Comment on above: Performed By: #### C BC ####[facility] Mgwlkcront[address] [place], [place] [address]Dr. Shahbaz Rogel EO # 0.1 103/ul Normal 0.0-0.7 [facility] Comment on above: Performed By: #### C BC ####[facility] Qagyaoanhp[address] [place], [place] [address]Dr. Lilajarrod Rogel Eosinophils/100 WBC (Bld) 3.4 % Normal 0.9-7.0 [facility] Comment on above: Performed By: #### C BC ####[facility] Bsnjdorlwr[address] [place], [place] [address]Dr. Shahbaz Rogel Erythrocyte distribution width (RBC) [Ratio] 13.2 % Normal 11.0-15.0 [facility] Comment on above: Performed By: #### C BC ####[facility] Fxqnbhlveh[address] [place] [address]Dr. Shahbaz Rogel Hematocrit (Bld) [Volume fraction] 45.6 % Normal 36.0-48.0 [facility] Comment on above: Performed By: #### C BC ####[facility] Ldfvlinwdc7[address] [place] [address]Dr. Shahbaz Rogel Hemoglobin (Bld) [Mass/Vol] 14.7 g/dL Normal 12.0-16.0 [facility] Comment on above: Performed By: #### C BC ####[facility] Euvkkgwrir[address] [place] [address]Dr. Shahbaz Rogel IG # 0.01 10e3/ul Normal 0.00-0.03 [facility] Comment on above: Performed By: #### C BC ####[facility] Ovgxfuvjol[address] [place], [place] [address]Dr. Shahbaz Rogel IG % 0.3 % Normal 0.0-0.5 [facility] Comment on above: Performed By: #### C BC ####[facility] Uwlqfymbtx[address] [place] [address]Dr. Shahbaz Rogel LYMPH # 1.0 103/ul Critically low 1.2-3.8 [facility] Comment on above: Performed By: #### C BC ####[facility] Jxemnecmtv59[address] [place] [address]Dr. Shahbaz Rogel Lymphocytes/100 WBC (Bld) 25.7 % Normal 20.5-60.0 [facility] Comment on above: Performed By: #### C BC ####[facility] Ugywyrkkkz26[address] [place] [address]DrChen Rogel MANUAL DIFF REQ NO Normal [facility] Comment on above: Performed By: #### C BC ####[facility] Xkoiwjbuwq[address] [place], [place] [address]DrChen Rogel MCH (RBC) [Entitic mass] 28.1 pg Normal 26.7-34.0 [facility] Comment on above: Performed By: #### C BC ####[facility] Twlxuddrqe[address] [place], [place] [address]Dr. Shahbaz Juan F MCHC (RBC) [Mass/Vol] 32.2 g/dL Normal 29.9-35.2 [facility] Comment on above: Performed By: #### C BC ####[facility] Rhxxtzsxff[address] [place] [address]Dr. Shahbaz Juan F MCV (RBC) [Entitic vol] 87.2 fL Normal 81.0-99.0 [facility] Comment on above: Performed By: #### C BC ####[facility] Sibjqhsefo[address] [place] [address]Dr. Shahbaz Juan F MONO # 0.2 103/ul Critically low 0.3-0.8 [facility] Comment on above: Performed By: #### C BC ####[facility] Mrtieiiuct4878 [place] [address]Dr. Shahbaz Rogel Monocytes/100 WBC (Bld) 6.0 % Normal 1.7-12.0 [facility] Comment on above: Performed By: #### C BC ####[facility] Oahrjgroxo[address] [place], [place] [address]Dr. Shahbaz Juan F NEUT # 2.5 103/ul Normal 1.4-6.5 [facility] Comment on above: Performed By: #### C BC ####[facility] Osohdlqjmn37[address] [place] [address]Dr. Shahbaz Juan F Neutrophils/100 WBC (Bld) 64.1 % Normal 43.0-75.0 [facility] Comment on above: Performed By: #### C BC ####[facility] Rwpvhfnilm54[address] [place] [address]Dr. Shahbaz Juan F Platelet mean volume (Bld) [Entitic vol] 9.4 fL Critically low 9.5-13.5 [facility] Comment on above: Performed By: #### C BC ####[facility] Rewivtbmwc30[address] [place] [address]Dr. Shahbaz Rogel PLT 212 103/ul Normal 150-450 [facility] Comment on above: Performed By: #### C BC ####[facility] Itecccszpi08[address] [place] [address]Dr. Lilajarrod Juan F RBC 5.23 106/ul Normal 4.20-5.40 [facility] Comment on above: Performed By: #### C BC ####[facility] Elwhidrydl[address] [place] [address]Dr. Shahbaz Rogel WBC 3.9 103/ul Critically low 4.0-11.0 [facility] Comment on above: Performed By: #### C BC ####[facility] Cjcbqeyuuy6[address] [place] [address]Dr. Shahbaz Rogel PROF 14(COMP METB)on 022 Albumin [Mass/Vol] 4.1 g/dL Normal 3.4-5.0 [facility] Comment on above: Performed By: #### C MP ####[facility] Burxesoqop[address] [place], [place] [address]Dr. Shahbaz Rogel Albumin/Globulin [Mass ratio] 1.1 {ratio} Normal [facility] Comment on above: Performed By: #### C MP ####[facility] Lztxyuragg[address] [place], [place] [address]Dr. Shahbaz Rogel ALP [Catalytic activity/Vol] 133 U/L Critically high 46-116 [facility] Comment on above: Performed By: #### C MP ####[facility] Fiiaqwaszj88[address] [place], [place] [address]Dr. Shahbaz Rogel ALT [Catalytic activity/Vol] 29 U/L Normal 14-59 [facility] Comment on above: Performed By: #### C MP ####[facility] Mzlvqjjyxu7[address] [place], [place] [address]Dr. Shahbaz Rogel Anion gap [Moles/Vol] 10.9 mmol/L Normal [facility] Comment on above: Performed By: #### C MP ####[facility] Iglgevumpv[address] [place], [place] [address]Dr. Shahbaz Rogel AST [Catalytic activity/Vol] 23 U/L Normal 15-37 [facility] Comment on above: Performed By: #### C MP ####[facility] Eaomasgmvl[address] [place], [place] [address]Dr. Shahabz Rogel Bilirubin [Mass/Vol] 0.3 mg/dL Normal 0.2-1.0 [facility] Comment on above: Performed By: #### C MP ####[facility] Jtuynbvbwh[address] [place], [place] [address]Dr. Shahbaz Rogel Calcium [Mass/Vol] 9.1 mg/dL Normal 8.5-10.1 [facility] Comment on above: Performed By: #### C MP ####[facility] Hrnwiuptaj[address] [place], [place] [address]Dr. Shahbaz Juan F Chloride [Moles/Vol] 103 mmol/L Normal 98-107 [facility] Comment on above: Performed By: #### C MP ####[facility] Ghlhobxzuo[address] [place], [place] [address]Dr. Shahbaz Juan F CO2 [Moles/Vol] 30.8 mmol/L Normal 21.0-32.0 [facility] Comment on above: Performed By: #### C MP ####[facility] Cclbdbdatl[address] [place], [place] [address]Dr. Shahbaz Juan F Creatinine [Mass/Vol] 1.02 mg/dL Normal 0.55-1.02 [facility] Comment on above: Performed By: #### C MP ####[facility] Kdpapbthkh[address] [place], [place] [address]Dr. Lilajarrod Juan F EGFR-AF MARSHALLESE >60 Normal >=60 [facility] Comment on above: Performed By: #### C MP ####[facility] Aaypokwtpx7[address] [place], [place] [address]Dr. Lilajarrod Juan F EGFR-NON AF MARSHALLESE 56 mL/min/1.73m2 Critically low >=60 [facility] Comment on above: Performed By: #### C MP ####[facility] Exjxfuqlte164[address] [place], [place] [address]Dr. Shahbaz Rogel Globulin (S) [Mass/Vol] 3.7 g/dL Normal [facility] Comment on above: Performed By: #### C MP ####[facility] Plpbvlrqdb[address] [place], [place] [address]Dr. Shahbaz Rogel Glucose [Mass/Vol] 80 mg/dL Normal 74-106 [facility] Comment on above: Performed By: #### C MP ####[facility] Aafbemvdrn9[address] [place] [address]Dr. Shahbaz Juan F Potassium [Moles/Vol] 3.7 mmol/L Normal 3.5-5.1 [facility] Comment on above: Performed By: #### C MP ####[facility] Tdjophmuih9[address] [place] [address]Dr. Lilajarrod Juan F Protein [Mass/Vol] 7.8 g/dL Normal 6.4-8.2 [facility] Comment on above: Performed By: #### C MP ####[facility] Uprbdcniue[address] [place], [place] [address]Dr. Lilajarrod Juan F Sodium [Moles/Vol] 141 mmol/L Normal 136-145 [facility] Comment on above: Performed By: #### C MP ####[facility] Sxccmrzbba[address] [place], [place] [address]Dr. Lilajarrod Juan F Urea nitrogen [Mass/Vol] 10.0 mg/dL Normal 7.0-18.0 [facility] Comment on above: Performed By: #### C MP ####[facility] Fneajaqxdl64[address] [place], [place] [address]Dr. Lilajarrod Juan F Urea nitrogen/Creatinine [Mass ratio] 9.8 mg/mg Normal [facility] Comment on above: Performed By: #### C MP ####[facility] Vuxphnmjwb[address] [place], [place] [address]Dr. Shahbaz Rogel SED RATE HIGHLANDERGRENon 2021 SED RATE 17 mm/hr Normal <=30 [facility] Comment on above: Performed By: #### S EDR ####[facility] Ftkxsauwnn[address] [place], [place] [address]Dr. Shahbaz Rogel CT CHEST HI RESOLUTIONon CT CHEST HI RESOLUTION Normal Th [facility] XR ANKLE RT MIN 3 VIEWSon XR ANKLE RT MIN 3 VIEWS Normal [facility] CT CHEST WO CONon 03-03-2022 CT CHEST WO CON Normal [facility] CT CSPINE WO CONon 2 CT CSPINE WO CON Normal [facility] XR CHEST 2 Von 03-03-2022 XR CHEST 2 V Normal [facility] XR STERNUM MIN 2 VIEWSon XR STERNUM MIN 2 VIEWS Normal Th e [facility] CT HEAD WO CONon 03-02-2022 CT HEAD WO CON Normal [facility] CBC AUTO DIFFon 01-21-2022 BASO # 0.0 103/ul Normal 0.0-0.1 [facility] Comment on above: Performed By: #### C BC ####[facility] Wofozholeo3650 [place] [address]Dr. Shahbaz Rogel Basophils/100 WBC (Bld) 0.0 % Critically low 0.2-2.0 [facility] Comment on above: Performed By: #### C BC ####[facility] Tlsztfogmb[address] [place], [place] [address]Dr. Shahbaz Rogel EO # 0.0 103/ul Normal 0.0-0.7 [facility] Comment on above: Performed By: #### C BC ####[facility] Xxydnsxxtc7050 [place] [address]Dr. Shahbaz Rogel Eosinophils/100 WBC (Bld) 0.0 % Critically low 0.9-7.0 [facility] Comment on above: Performed By: #### C BC ####[facility] Qeycfacgua8[address] [place], [place] [address]Dr. Shahbaz Rogel Erythrocyte distribution width (RBC) [Ratio] 14.2 % Normal 11.0-15.0 [facility] Comment on above: Performed By: #### C BC ####[facility] Kemzsrnhcz[address] [place], [place] [address]DrChen Rogel Hematocrit (Bld) [Volume fraction] 38.9 % Normal 36.0-48.0 [facility] Comment on above: Performed By: #### C BC ####[facility] Tmrlqrrrgn14[address] [place], [place] [address]DrChen Rogel Hemoglobin (Bld) [Mass/Vol] 11.8 g/dL Critically low 12.0-16.0 [facility] Comment on above: Performed By: #### C BC ####[facility] Jhbxsijxie0089 [place] [address]Dr. Shahbaz Rgoel IG # 0.03 10e3/ul Normal 0.00-0.03 [facility] Comment on above: Performed By: #### C BC ####[facility] Hivnkwigpx9666 [place] [address]Dr. Shahbaz Rogel IG % 0.4 % Normal 0.0-0.5 [facility] Comment on above: Performed By: #### C BC ####[facility] Alapusnezm[address] [place], [place] [address]DrChen Rogel LYMPH # 0.8 103/ul Critically low 1.2-3.8 [facility] Comment on above: Performed By: #### C BC ####[facility] Kmdynihfds70[address] [place], [place] [address]Dr. Shahbaz Rogel Lymphocytes/100 WBC (Bld) 10.3 % Critically low 20.5-60.0 [facility] Comment on above: Performed By: #### C BC ####[facility] Qejertaiql[address] [place], [place] [address]DrChen Rogel MANUAL DIFF REQ NO Normal [facility] Comment on above: Performed By: #### C BC ####[facility] Bywmvstftz927[address] [place], [place] [address]Dr. Shahbaz Rogel MCH (RBC) [Entitic mass] 27.1 pg Normal 26.7-34.0 [facility] Comment on above: Performed By: #### C BC ####[facility] Rnwqxdevhx8564[address] [place], [place] [address]Dr. Lilajarrod Rogel MCHC (RBC) [Mass/Vol] 30.3 g/dL Normal 29.9-35.2 [facility] Comment on above: Performed By: #### C BC ####[facility] Ggigkpuodt3607 [place] [address]Dr. Shahbaz Rogel MCV (RBC) [Entitic vol] 89.2 fL Normal 81.0-99.0 [facility] Comment on above: Performed By: #### C BC ####[facility] Qilkiwqvrg7399 [place] [address]Dr. Shahbaz Rogel MONO # 0.4 103/ul Normal 0.3-0.8 [facility] Comment on above: Performed By: #### C BC ####[facility] Ctzaqeapcm4478 [place] [id number]. Shahbaz Rogel Monocytes/100 WBC (Bld) 4.7 % Normal 1.7-12.0 [facility] Comment on above: Performed By: #### C BC ####[facility] Mcosusooet0571 [place] [address]Dr. Shahbaz Rogel NEUT # 6.6 103/ul Critically high 1.4-6.5 [facility] Comment on above: Performed By: #### C BC ####[facility] Kbkilevwft57[address] [place], [place] [address]Dr. Shahbaz Rogel Neutrophils/100 WBC (Bld) 84.6 % Critically high 43.0-75.0 [facility] Comment on above: Performed By: #### C BC ####[facility] Emdybadsxv5097[address] [place], [place] [address]Dr. Shahbaz Rogel Platelet mean volume (Bld) [Entitic vol] 10.0 fL Normal 9.5-13.5 [facility] Comment on above: Performed By: #### C BC ####[facility] Uododlpubu7222 [place] [address]Dr. Shahbaz Rogel PLT 165 103/ul Normal 150-450 [facility] Comment on above: Performed By: #### C BC ####[facility] Zyaxpblanl[address] [place], [place] [id number]. Shahbaz Rogel RBC 4.36 106/ul Normal 4.20-5.40 [facility] Comment on above: Performed By: #### C BC ####[facility] Fghwjtgbyj1828 [place] [address]Dr. Shahbaz Rogel WBC 7.8 103/ul Normal 4.0-11.0 [facility] Comment on above: Performed By: #### C BC ####[facility] Gdpvmjxkmu76[address] [place], [place] [address]Dr. Shahbaz Rogel ER URINE PROFILEon 2 Bilirubin Ql (U) Negative Normal NEGATIVE [facility] Comment on above: Performed By: #### E RUR ####[facility] Uotfssxetm9[address] [place], [place] [address]Dr. Shahbaz Rogel Clarity (U) CLEAR Normal CLEAR [facility] Comment on above: Performed By: #### E RUR ####[facility] Gpklnwsynb039[address] [place], [place] [address]Dr. Shahbaz Rogel Color (U) LT. YELLOW Normal YELLOW [facility] Comment on above: Performed By: #### E RUR ####[facility] Cakosphsmd301[address] [place], [place] [address]Dr. Shahbaz Rogel ERUAHD A micrscopic examina tion will be performed if indicated. Normal [facility] Comment on above: Performed By: #### E RUR ####[facility] Muatvwxxwb7787[address] [place], [place] [address]Dr. Shahbaz Rogel Glucose Ql (U) Negative Normal NEGATIVE [facility] Comment on above: Performed By: #### E RUR ####[facility] Pcpbveljfj4630[address] [place], [place] [address]Dr. Yilan Rogel Hemoglobin Ql (U) Negative Normal NEGATIVE [facility] Comment on above: Performed By: #### E RUR ####[facility] Xkglxrcdnc133[address] [place], [place] [address]Dr. Yilan Rogel Ketones Ql (U) Negative Normal NEGATIVE [facility] Comment on above: Performed By: #### E RUR ####[facility] Qwhazcaydn9[address] [place], [place] [address]Dr. Yilan Rogel LEUKOCYTES Negative Normal NEGATIVE [facility] Comment on above: Performed By: #### E RUR ####[facility] Fkjjuvevta[address] [place], [place] [address]Dr. Yilan Rogel Nitrite Ql (U) Negative Normal NEGATIVE [facility] Comment on above: Performed By: #### E RUR ####[facility] Scrlavfuay6721 [place] [id number]. Shahbaz Rogel pH (U) 6.0 [pH] Normal 5-9 [facility] Comment on above: Performed By: #### E RUR ####[facility] Nihvjnpaqa5749 [place] [address]Dr. Lilajrarod Rogel SPEC GRAVITY 1.020 Normal 1.005-<=1. 025 [facility] Comment on above: Performed By: #### E RUR ####[facility] Dwsttquoxj5790 [place] [address]Dr. Shahbaz Rogel UA PROTEIN Negative Normal NEGATIVE/ TRACE [facility] Comment on above: Performed By: #### E RUR ####[facility] Hsupdgwclt2757 [place] [address]Dr. Shahbaz Rogel UR MICRO IND NOT INDICATED Normal [facility] Comment on above: Performed By: #### E RUR ####[facility] Luzweraofe5500 [place] [address]Dr. Shahbaz Rogel Urobilinogen Qn (U) 0.2 {Melida'U}/dL Normal 0.2 - 1. 0 [facility] Comment on above: Performed By: #### E RUR ####[facility] Ydzwqzbtba9766 [place] [address]Dr. Shahbaz Juan F POINT OF CARE GLUCOSEon 01-01 Glucose [Mass/Vol] 151 mg/dL Critically high 74-106 [facility] Comment on above: Performed By: #### P OCGLUC ####[facility] Hytnstkhcq6038 [place] [address]Dr. Shahbaz Rogel Glucose [Mass/Vol] 248 mg/dL Critically high 74-106 [facility] Comment on above: Performed By: #### P OCGLUC ####[facility] Tqmlkhhayw8053 [place] [address]Dr. Shahbaz Rogel PROF 14(COMP METB)on 022 Albumin [Mass/Vol] 2.8 g/dL Critically low 3.4-5.0 [facility] Comment on above: Performed By: #### C MP ####[facility] Cgnoaugvim1969 [place] [id number]. Shahbaz Rogel Albumin/Globulin [Mass ratio] 0.9 {ratio} Normal [facility] Comment on above: Performed By: #### C MP ####[facility] Vtclcdzumh5258 [place] [id number]. Shahbaz Rogel ALP [Catalytic activity/Vol] 90 U/L Normal 46-116 [facility] Comment on above: Performed By: #### C MP ####[facility] Nyqlpxqukd3226 [place] [address]Dr. Shahbaz Rogel ALT [Catalytic activity/Vol] 20 U/L Normal 14-59 [facility] Comment on above: Performed By: #### C MP ####[facility] Wfrbjjoqnl5991 [place] [address]Dr. Shahbaz Rogel Anion gap [Moles/Vol] 8.9 mmol/L Normal [facility] Comment on above: Performed By: #### C MP ####[facility] Xfpdjpvesg966[address] [place], [place] [address]Dr. Shahbaz Rogel AST [Catalytic activity/Vol] 14 U/L Critically low 15-37 [facility] Comment on above: Performed By: #### C MP ####[facility] Pgwsxgldqz864[address] [place], [place] [address]Dr. Shahbaz Rogel Bilirubin [Mass/Vol] 0.1 mg/dL Critically low 0.2-1.3 [facility] Comment on above: Performed By: #### C MP ####[facility] Uefvlonznz3630[address] [place], [place] [address]Dr. Shahbaz Rogel Calcium [Mass/Vol] 8.2 mg/dL Critically low 8.5-10.1 [facility] Comment on above: Performed By: #### C MP ####[facility] Tjryfzrfue0632[address] [place], [place] [address]Dr. Shahbaz Rogel Chloride [Moles/Vol] 110 mmol/L Critically high 98-107 [facility] Comment on above: Performed By: #### C MP ####[facility] Itvormgpur9344 [place] [address]Dr. Shahbaz Rogel CO2 [Moles/Vol] 28.0 mmol/L Normal 22.0-30.0 [facility] Comment on above: Performed By: #### C MP ####[facility] Cbbvodtheo5472 [place] [address]Dr. Shahbaz Rogel Creatinine [Mass/Vol] 0.78 mg/dL Normal 0.52-1.04 [facility] Comment on above: Performed By: #### C MP ####[facility] Kjxasyhywr6565 [place] [address]Dr. Shahbaz Rogel EGFR-AF MARSHALLESE >60 Normal >=60 [facility] Comment on above: Performed By: #### C MP ####[facility] Qcayahahii7[address] [place], [place] [address]Dr. Shahbaz Rogel EGFR-NON AF MARSHALLESE >60 Normal >=60 [facility] Comment on above: Performed By: #### C MP ####[facility] Bvctzhyxhv25[address] [place], [place] [address]Dr. Shahbaz Rogel Globulin (S) [Mass/Vol] 3.1 g/dL Normal [facility] Comment on above: Performed By: #### C MP ####[facility] Bofyqgwfab2935[address] [place], [place] [address]Dr. Shahbaz Rogel Glucose [Mass/Vol] 121 mg/dL Critically high 74-106 [facility] Comment on above: Performed By: #### C MP ####[facility] Lzxcteunad4665[address] [place], [place] [address]Dr. Shahbaz Rogel Potassium [Moles/Vol] 3.9 mmol/L Normal 3.4-5.0 [facility] Comment on above: Performed By: #### C MP ####[facility] Ageaisowuw927[address] [place], [place] [address]Dr. Shahbaz Rogel Protein [Mass/Vol] 5.9 g/dL Critically low 6.1-8.2 [facility] Comment on above: Performed By: #### C MP ####[facility] Adjydyhenb6596 [place] [address]Dr. Shahbaz Rogel Sodium [Moles/Vol] 143 mmol/L Normal 137-145 [facility] Comment on above: Performed By: #### C MP ####[facility] Cdcssahovg076[address] [place], [place] [address]Dr. Shahbaz Rogel Urea nitrogen [Mass/Vol] 26.0 mg/dL Critically high 7.0-18.0 [facility] Comment on above: Performed By: #### C MP ####[facility] Uhmkvwzkui256[address] [place], [place] [address]Dr. Shahbaz Rogel Urea nitrogen/Creatinine [Mass ratio] 33.3 mg/mg Normal [facility] Comment on above: Performed By: #### C MP ####[facility] Hhxqwaqgbs7[address] [place], [place] [address]Dr. Shahbaz Rogel SOPXA-1-PGUFTAURMYWcf 2021 Swoim-2-Lhrylyrlnva, Serum 154 mg/dL Normal 101-187 [facility] Comment on above: Performed By: #### A LPHA-1 ####[facility] Jmchnwvxmv[address] [place], [place] [address]Dr. Shahbaz Rogel CBC AUTO DIFFon 01-20-2022 BASO # 0.0 103/ul Normal 0.0-0.1 [facility] Comment on above: Performed By: #### C BC ####[facility] Vqtqcylesi3665[address] [place], [place] [address]Dr. Shahbaz Juan F Basophils/100 WBC (Bld) 0.0 % Critically low 0.2-2.0 [facility] Comment on above: Performed By: #### C BC ####[facility] Ulekewhkpe4499[address] [place], [place] [address]Dr. Shahbaz Juan F EO # 0.0 103/ul Normal 0.0-0.7 [facility] Comment on above: Performed By: #### C BC ####[facility] Dpppyueigh877[address] [place], [place] [address]Dr. Shahbaz Juan F Eosinophils/100 WBC (Bld) 0.0 % Critically low 0.9-7.0 [facility] Comment on above: Performed By: #### C BC ####[facility] Fntfjfrkqu9653 [place] [address]Dr. Shahbaz Rogel Erythrocyte distribution width (RBC) [Ratio] 13.7 % Normal 11.0-15.0 [facility] Comment on above: Performed By: #### C BC ####[facility] Vyetfqlsfy7354[address] [place], [place] [address]Dr. Shahbaz Rogel Hematocrit (Bld) [Volume fraction] 41.2 % Normal 36.0-48.0 [facility] Comment on above: Performed By: #### C BC ####[facility] Fihmftrwrm25[address] [place], [place] [address]Dr. Shahbaz Rogel Hemoglobin (Bld) [Mass/Vol] 12.8 g/dL Normal 12.0-16.0 [facility] Comment on above: Performed By: #### C BC ####[facility] Ylcdrbgzop5658[address] [place], [place] [address]Dr. Shahbaz Rogel IG # 0.10 10e3/ul Critically high 0.00-0.03 [facility] Comment on above: Performed By: #### C BC ####[facility] Jddrdqrzjo1216[address] [place], [place] [address]Dr. Shahbaz Rogel IG % 0.5 % Normal 0.0-0.5 [facility] Comment on above: Performed By: #### C BC ####[facility] Mfwxiurrxh5680[address] [place], [place] [address]Dr. Shahbaz Rogel LYMPH # 0.7 103/ul Critically low 1.2-3.8 [facility] Comment on above: Performed By: #### C BC ####[facility] Fbbgxklpfv2147[address] [place], [place] [address]Dr. Shahbaz Rogel Lymphocytes/100 WBC (Bld) 6.2 % Critically low 20.5-60.0 [facility] Comment on above: Result Comment: dif. not rqd. same as 01/18/22 Performed By: #### C BC ####[facility] Amchdqacze4[address] [place], [place] [address]DrChen Shahbaz Rogel MANUAL DIFF REQ NO Normal [facility] Comment on above: Performed By: #### C BC ####[facility] Byxkdqyfau5563 [place] [address]Dr. Shahbaz Rogel MCH (RBC) [Entitic mass] 27.2 pg Normal 26.7-34.0 [facility] Comment on above: Performed By: #### C BC ####[facility] Ktbvnwnqtf3208 [place] [address]Dr. Shahbaz Rogel MCHC (RBC) [Mass/Vol] 31.1 g/dL Normal 29.9-35.2 [facility] Comment on above: Performed By: #### C BC ####[facility] Ktyfzucwbs5[address] [place], [place] [address]Dr. Shahbaz Rogel MCV (RBC) [Entitic vol] 87.5 fL Normal 81.0-99.0 [facility] Comment on above: Performed By: #### C BC ####[facility] Ctbedzzgue822[address] [place], [place] [address]DrChen Rogel MONO # 0.2 103/ul Critically low 0.3-0.8 [facility] Comment on above: Performed By: #### C BC ####[facility] Kkxzkvtzrz7833[address] [place], [place] [address]DrChen Rogel Monocytes/100 WBC (Bld) 1.7 % Normal 1.7-12.0 [facility] Comment on above: Performed By: #### C BC ####[facility] Igacsnozpv8[address] [place], [place] [address]DrChen Rogel NEUT # 9.8 103/ul Critically high 1.4-6.5 [facility] Comment on above: Performed By: #### C BC ####[facility] Cobjwahhtp316[address] [place], [place] [address]DrChen Rogel Neutrophils/100 WBC (Bld) 91.6 % Critically high 43.0-75.0 [facility] Comment on above: Performed By: #### C BC ####[facility] Tcsnwdclas[address] [place], [place] [address]DrChen Rogel Platelet mean volume (Bld) [Entitic vol] 10.0 fL Normal 9.5-13.5 [facility] Comment on above: Performed By: #### C BC ####[facility] Xjigorwhlx9248 [place] [address]Dr. Shahbaz Rogel PLT 198 103/ul Normal 150-450 [facility] Comment on above: Performed By: #### C BC ####[facility] Wwcgfmzfmu1940 [place] [address]Dr. Shahbaz Rogel RBC 4.71 106/ul Normal 4.20-5.40 [facility] Comment on above: Performed By: #### C BC ####[facility] Qsiotrbpbb6885 [place] [address]Dr. Shahbaz Rogel WBC 10.7 103/ul Normal 4.0-11.0 [facility] Comment on above: Performed By: #### C BC ####[facility] Qmxcmogdnm9901 [place] [address]Dr. Shahbaz Juan F POINT OF CARE GLUCOSEon 01-01 Glucose [Mass/Vol] 157 mg/dL Critically high 74-106 [facility] Comment on above: Performed By: #### P OCGLUC ####[facility] Dtmycjsiza156[address] [place], [place] [address]Dr. Shahbaz Rogel Glucose [Mass/Vol] 225 mg/dL Critically high -106 [facility] Comment on above: Performed By: #### P OCGLUC ####[facility] Mdudrqbzyq1978 [place] [address]Dr. Shahbaz Rogel Glucose [Mass/Vol] 185 mg/dL Critically high 74-106 [facility] Comment on above: Performed By: #### P OCGLUC ####[facility] Bccbfctrne317[address] [place], [place] [address]Dr. Shahbaz Rogel Glucose [Mass/Vol] 134 mg/dL Critically high -106 [facility] Comment on above: Performed By: #### P OCGLUC ####[facility] Sggduwfhjz95[address] [place], [place] [address]Dr. Shahbaz Rogel PROF 14(COMP METB)on 022 Albumin [Mass/Vol] 3.0 g/dL Critically low 3.4-5.0 [facility] Comment on above: Performed By: #### C MP ####[facility] Vfszvofcit4951 [place] [address]Dr. Shahbaz Rogel Albumin/Globulin [Mass ratio] 0.9 {ratio} Normal [facility] Comment on above: Performed By: #### C MP ####[facility] Lqrebyqghl[address] [place], [place] [address]Dr. Shahbaz Rogel ALP [Catalytic activity/Vol] 81 U/L Normal 46-116 [facility] Comment on above: Performed By: #### C MP ####[facility] Rofychqnsm5[address] [place], [place] [address]Dr. Shahbaz Rogel ALT [Catalytic activity/Vol] 14 U/L Normal 14-59 [facility] Comment on above: Performed By: #### C MP ####[facility] Mqvxdktovu4[address] [place], [place] [address]Dr. Shahbaz Rogel Anion gap [Moles/Vol] 13.1 mmol/L Normal [facility] Comment on above: Performed By: #### C MP ####[facility] Otikigxmnk5618[address] [place], [place] [address]Dr. Shahbaz Rogel AST [Catalytic activity/Vol] 20 U/L Normal 15-37 [facility] Comment on above: Performed By: #### C MP ####[facility] Mzofgmdliz[address] [place], [place] [address]Dr. Shahbaz Rogel Bilirubin [Mass/Vol] 0.3 mg/dL Normal 0.2-1.3 [facility] Comment on above: Performed By: #### C MP ####[facility] Lmtxbdamhg9532[address] [place], [place] [address]Dr. Shahbaz Rogel Calcium [Mass/Vol] 8.5 mg/dL Normal 8.5-10.1 [facility] Comment on above: Performed By: #### C MP ####[facility] Stnmjjwgwa[address] [place], [place] [address]Dr. Shahbaz Rogel Chloride [Moles/Vol] 107 mmol/L Normal 98-107 [facility] Comment on above: Performed By: #### C MP ####[facility] Cgkzuqctzt9166 [place] [address]Dr. Shahbaz Rogel CO2 [Moles/Vol] 24.0 mmol/L Normal 22.0-30.0 [facility] Comment on above: Performed By: #### C MP ####[facility] Rhyniatmhj0642 [place] [address]Dr. Shahbaz Rogel Creatinine [Mass/Vol] 1.00 mg/dL Normal 0.52-1.04 [facility] Comment on above: Performed By: #### C MP ####[facility] Fpttgoiuat715[address] [place], [place] [address]Dr. Shahbaz Rogel EGFR-AF MARSHALLESE >60 Normal >=60 [facility] Comment on above: Performed By: #### C MP ####[facility] Qqpupliwox8925 [place] [address]Dr. Shahbaz Rogel EGFR-NON AF MARSHALLESE 57 mL/min/1.73m2 Critically low >=60 [facility] Comment on above: Performed By: #### C MP ####[facility] Goqwbnjvej0001 [place] [address]Dr. Shahbaz Rogel Globulin (S) [Mass/Vol] 3.4 g/dL Normal [facility] Comment on above: Performed By: #### C MP ####[facility] Ozypygkskf4893 [place] [address]Dr. Shahbaz Rogel Glucose [Mass/Vol] 153 mg/dL Critically high 74-106 [facility] Comment on above: Performed By: #### C MP ####[facility] Ezsrnfbtai0642 [place] [address]Dr. Shahbaz Rogel Potassium [Moles/Vol] 4.1 mmol/L Normal 3.4-5.0 [facility] Comment on above: Performed By: #### C MP ####[facility] Fgpqxgdtrt6196 [place] [address]Dr. Shahbaz Rogel Protein [Mass/Vol] 6.4 g/dL Normal 6.1-8.2 [facility] Comment on above: Performed By: #### C MP ####[facility] Rnjmgftjyc[address] [place], [place] [address]Dr. Shahbaz Rogel Sodium [Moles/Vol] 140 mmol/L Normal 137-145 [facility] Comment on above: Performed By: #### C MP ####[facility] Jfkmkyhvsy467[address] [place], [place] [address]Dr. Shahbaz Rogel Urea nitrogen [Mass/Vol] 26.0 mg/dL Critically high 7.0-18.0 [facility] Comment on above: Performed By: #### C MP ####[facility] Daqtmmapvv3917[address] [place], [place] [address]Dr. Shahbaz Rogel Urea nitrogen/Creatinine [Mass ratio] 26.5 mg/mg Normal [facility] Comment on above: Performed By: #### C MP ####[facility] Ckbmtuegpr[address] [place], [place] [address]DrChen Rogel BNPon 01-19-2022 Natriuretic peptide B (Bld) [Mass/Vol] 117.0 pg/mL Normal <=900.0 [facility] Comment on above: Performed By: #### B COMPENSATION AND BENEFITS ANALYST, CMP ####[facility] Rnterxexmv[address] [place], [place] [address]DrChen Rogel CBC AUTO DIFFon 01-19-2022 BASO # 0.0 103/ul Normal 0.0-0.1 [facility] Comment on above: Performed By: #### C BC ####[facility] Gvxarztbqz[address] [place], [place] [address]DrChen Rogel Basophils/100 WBC (Bld) 0.0 % Critically low 0.2-2.0 [facility] Comment on above: Performed By: #### C BC ####[facility] Qyhwbublbc[address] [place], [place] [address]DrChen Rogel EO # 0.0 103/ul Normal 0.0-0.7 [facility] Comment on above: Performed By: #### C BC ####[facility] Tauxcqxcqs[address] [place], [place] [address]Dr. Shahbaz Rogel Eosinophils/100 WBC (Bld) 0.0 % Critically low 0.9-7.0 [facility] Comment on above: Performed By: #### C BC ####[facility] [address] [place] [address]Dr. Shahbaz Rogel Erythrocyte distribution width (RBC) [Ratio] 13.4 % Normal 11.0-15.0 [facility] Comment on above: Performed By: #### C BC ####[facility] Wwbutueabt[address] [place], [place] [address]Dr. Shahbaz Rogel Hematocrit (Bld) [Volume fraction] 46.3 % Normal 36.0-48.0 [facility] Comment on above: Performed By: #### C BC ####[facility] Ajgdiqgnuf[address] [place], [place] [address]Dr. Shahbaz Rogel Hemoglobin (Bld) [Mass/Vol] 14.3 g/dL Normal 12.0-16.0 [facility] Comment on above: Performed By: #### C BC ####[facility] Fitdzdjjri[address] [place], [place] [address]Dr. Shahbaz Rogel IG # 0.00 10e3/ul Normal 0.00-0.03 [facility] Comment on above: Performed By: #### C BC ####[facility] Cmrudwctfp[address] [place], [place] [address]Dr. Shahbaz Rogel IG % 0.0 % Normal 0.0-0.5 [facility] Comment on above: Performed By: #### C BC ####[facility] Zmvkhkwzdd[address] [place], [place] [address]Dr. Shahbaz Rogel LYMPH # 0.6 103/ul Critically low 1.2-3.8 [facility] Comment on above: Performed By: #### C BC ####[facility] Jglhkbxuut[address] [place], [place] [address]Dr. Shahbaz Rogel Lymphocytes/100 WBC (Bld) 14.2 % Critically low 20.5-60.0 [facility] Comment on above: Performed By: #### C BC ####[facility] [address]en[address] [place] [address]Dr. Shahbaz Rogel MANUAL DIFF REQ NO Normal [facility] Comment on above: Performed By: #### C BC ####[facility] Indxicttav[address] [place] [address]Dr. Shahbaz Rogel MCH (RBC) [Entitic mass] 27.7 pg Normal 26.7-34.0 [facility] Comment on above: Performed By: #### C BC ####[facility] Zstoihtzkd[address] [place] [address]Dr. Shahbaz Juan F MCHC (RBC) [Mass/Vol] 30.9 g/dL Normal 29.9-35.2 [facility] Comment on above: Performed By: #### C BC ####[facility] Dtbjyprjfj[address] [place] [address]Dr. Shahbaz Juan F MCV (RBC) [Entitic vol] 89.6 fL Normal 81.0-99.0 [facility] Comment on above: Performed By: #### C BC ####[facility] Wqzbddgtrt[address] [place] [address]Dr. Shahbaz Juan F MONO # 0.0 103/ul Critically low 0.3-0.8 [facility] Comment on above: Performed By: #### C BC ####[facility] P[address]htarjlgw[address] [place] [address]Dr. Lilajarrod Rogel Monocytes/100 WBC (Bld) 1.0 % Critically low 1.7-12.0 [facility] Comment on above: Performed By: #### C BC ####[facility] Cvzrwugxaf[address] [place] [address]Dr. Shahbaz Juan F NEUT # 3.5 103/ul Normal 1.4-6.5 [facility] Comment on above: Performed By: #### C BC ####[facility] Eqfrfrqoqq[address] [place], [place] [address]Dr. Lilajarrod Rogel Neutrophils/100 WBC (Bld) 84.8 % Critically high 43.0-75.0 [facility] Comment on above: Performed By: #### C BC ####[facility] Sqbsspyznn[address] [place] [address]Dr. Shahbaz Rogel Platelet mean volume (Bld) [Entitic vol] 9.8 fL Normal 9.5-13.5 [facility] Comment on above: Performed By: #### C BC ####[facility] Rwcmlnzmbp[address] [place] [address]Dr. Shahbaz Rogel PLT 185 103/ul Normal 150-450 [facility] Comment on above: Performed By: #### C BC ####[facility] Ielxkbkuzj[address] [place], [place] [address]Dr. Shahbaz Rogel RBC 5.17 106/ul Normal 4.20-5.40 [facility] Comment on above: Performed By: #### C BC ####[facility] Ldifheazqx69[address] [place], [place] [address]Dr. Shahbaz Rogel WBC 4.2 103/ul Normal 4.0-11.0 [facility] Comment on above: Performed By: #### C BC ####[facility] Apcgoxaxhs[address] [place], [place] [address]Dr. Shahbaz Rogel LACTATE/LACTIC ACIDon 2021 Lactate [Moles/Vol] 1.7 mmol/L Normal 0.7-2.0 [facility] Comment on above: Performed By: #### L ACT ####[facility] Wdmhxpeuia[address] [place], [place] [address]Dr. Shahbaz Rogel POINT OF CARE GLUCOSEon 01-01 Glucose [Mass/Vol] 173 mg/dL Critically high 74-106 [facility] Comment on above: Performed By: #### P OCGLUC ####[facility] Yybvoxngba[address] [place] [address]Dr. Shahbaz Rogel Glucose [Mass/Vol] 181 mg/dL Critically high 74-106 [facility] Comment on above: Performed By: #### P OCGLUC ####[facility] Hkzpwhqtkw[address] [place], [place] [address]Dr. Shahbaz Rogel Glucose [Mass/Vol] 154 mg/dL Critically high 74-106 [facility] Comment on above: Performed By: #### P OCGLUC ####[facility] Myygsydmsb15[address] [place] [address]Dr. Shahbaz Rogel PROF 14(COMP METB)on 022 Albumin [Mass/Vol] 3.5 g/dL Normal 3.4-5.0 [facility] Comment on above: Performed By: #### B COMPENSATION AND BENEFITS ANALYST, CMP ####[facility] Mrknoeifvg027[address] [place] [address]Dr. Shahbaz Rogel Albumin/Globulin [Mass ratio] 0.9 {ratio} Normal [facility] Comment on above: Performed By: #### B COMPENSATION AND BENEFITS ANALYST, CMP ####[facility] Rvtdepztdh6[address] [place] [address]Dr. Shahbaz Rogel ALP [Catalytic activity/Vol] 107 U/L Normal 46-116 [facility] Comment on above: Performed By: #### B COMPENSATION AND BENEFITS ANALYST, CMP ####[facility] Eiawirimqi[address] [place], [place] [address]Dr. Shahbaz Rogel ALT [Catalytic activity/Vol] 18 U/L Normal 14-59 [facility] Comment on above: Performed By: #### B COMPENSATION AND BENEFITS ANALYST, CMP ####[facility] Ozmfivxcyh32[address] [place] [address]Dr. Shahbaz Rogel Anion gap [Moles/Vol] 14.1 mmol/L Normal [facility] Comment on above: Performed By: #### B COMPENSATION AND BENEFITS ANALYST, CMP ####[facility] Yssopcyfsp[address] [place], [place] [address]Dr. Shahbaz Rogel AST [Catalytic activity/Vol] 19 U/L Normal 15-37 [facility] Comment on above: Performed By: #### B COMPENSATION AND BENEFITS ANALYST, CMP ####[facility] Fszflkomau[address] [place] [address]Dr. Shahbaz Rogel Bilirubin [Mass/Vol] 0.5 mg/dL Normal 0.2-1.3 [facility] Comment on above: Performed By: #### B COMPENSATION AND BENEFITS ANALYST, CMP ####[facility] Xyghbaflnr[address] [place] [address]Dr. Shahbaz Rogel Calcium [Mass/Vol] 8.5 mg/dL Normal 8.5-10.1 [facility] Comment on above: Performed By: #### B COMPENSATION AND BENEFITS ANALYST, CMP ####[facility] Ajapalmngg[address] [place] [address]Dr. Shahbaz Rogel Chloride [Moles/Vol] 103 mmol/L Normal 98-107 [facility] Comment on above: Performed By: #### B COMPENSATION AND BENEFITS ANALYST, CMP ####[facility] Ufacsuwwou[address] [place], [place] [address]Dr. Shahbaz Rogel CO2 [Moles/Vol] 25.4 mmol/L Normal 22.0-30.0 [facility] Comment on above: Performed By: #### B COMPENSATION AND BENEFITS ANALYST, CMP ####[facility] Itrjfhqvjc[address] [place], [place] [address]Dr. Shahbaz Rogel Creatinine [Mass/Vol] 1.48 mg/dL Critically high 0.52-1.04 [facility] Comment on above: Performed By: #### B COMPENSATION AND BENEFITS ANALYST, CMP ####[facility] Vnfwgntbma[address] [place], [place] [address]Dr. Shahbaz Rogel EGFR-AF MARSHALLESE 44 mL/min/1.73m2 Critically low >=60 [facility] Comment on above: Performed By: #### B COMPENSATION AND BENEFITS ANALYST, CMP ####[facility] Ujafkuzmgo[address] [place], [place] [address]Dr. Shahbaz Rogel EGFR-NON AF MARSHALLESE 36 mL/min/1.73m2 Critically low >=60 [facility] Comment on above: Performed By: #### B COMPENSATION AND BENEFITS ANALYST, CMP ####[facility] Ervvbagbze[address] [place], [place] [address]Dr. Shahbaz Rogel Globulin (S) [Mass/Vol] 3.7 g/dL Normal [facility] Comment on above: Performed By: #### B COMPENSATION AND BENEFITS ANALYST, CMP ####[facility] Wgfxtkwxao3[address] [place], [place] [address]Dr. Shahbaz Rogel Glucose [Mass/Vol] 203 mg/dL Critically high 74-106 [facility] Comment on above: Performed By: #### B COMPENSATION AND BENEFITS ANALYST, CMP ####[facility] Ykclpycrvh8[address] [place], [place] [address]Dr. Shahbaz Rogel Potassium [Moles/Vol] 3.5 mmol/L Normal 3.4-5.0 [facility] Comment on above: Performed By: #### B COMPENSATION AND BENEFITS ANALYST, CMP ####[facility] Omusinhxpl99[address] [place], [place] [address]Dr. Lilajarrod Juan F Protein [Mass/Vol] 7.2 g/dL Normal 6.1-8.2 [facility] Comment on above: Performed By: #### B COMPENSATION AND BENEFITS ANALYST, CMP ####[facility] Fhjndyfbwq[address] [place], [place] [address]Dr. Lilajarrod Juan F Sodium [Moles/Vol] 139 mmol/L Normal 137-145 [facility] Comment on above: Performed By: #### B COMPENSATION AND BENEFITS ANALYST, CMP ####[facility] Zyjvyshosd[address] [place], [place] [address]Dr. Shahbaz Rogel Urea nitrogen [Mass/Vol] 17.0 mg/dL Normal 7.0-18.0 [facility] Comment on above: Performed By: #### B COMPENSATION AND BENEFITS ANALYST, CMP ####[facility] Kgbfiqrdnb14[address] [place], [place] [address]Dr. Lilajarrod Juan F Urea nitrogen/Creatinine [Mass ratio] 11.5 mg/mg Normal [facility] Comment on above: Performed By: #### B COMPENSATION AND BENEFITS ANALYST, CMP ####[facility] Iljjnggmdh[address] [place], [place] [address]Dr. Lilajarrod Juan F BNPon 01-18-2022 Natriuretic peptide B (Bld) [Mass/Vol] 55.0 pg/mL Normal <=900.0 [facility] Comment on above: Performed By: #### C MP, BNP, HSTROPN ####[facility] Welxeuboff[address] [place], [place] [address]Dr. Lilajarrod Juan F CBC W MANUAL DIFFon 01-19-20 ATYPICAL LYMPH # 0.12 103/ul Normal [facility] Comment on above: Performed By: #### C CAIN ####[facility] Bejzkbwtvp[address] [place], [place] [address]Dr. Shahbaz Rogel ATYPICAL LYMPH % 2 % Normal [facility] Comment on above: Performed By: #### C CAIN ####[facility] Uzzek[address]bg[address] [place], [place] [id number]. Yijarrod Rogel BAND # 0.0 103/ul Normal 0.0-0.3 [facility] Comment on above: Performed By: #### C BCMAN ####[facility] Rceedhkwyd[address] [place] [address]Dr. Yilan Rogel BAND % 0 % Normal 0-5 [facility] Comment on above: Performed By: #### C BCMAN ####[facility] Rjrwvmshar[address] [place], [place] [address]Dr. Yilan Rogel BASOM # 0.00 103/ul Normal 0.00-0.10 [facility] Comment on above: Performed By: #### C BCBRICE ####[facility] Bhieoqhdsz[address] [place], [place] [address]Dr. Shahbaz Rogel BASOM % 0.0 % Critically low 0.2-2.0 [facility] Comment on above: Performed By: #### C BCBRICE ####[facility] Wbycmdakcr[address] [place], [place] [address]Dr. Yilan Rogel BLAST # Normal [facility] Comment on above: Performed By: #### C CAIN ####[facility] Zjiuvfvbix[address] [place], [place] [address]Dr. Yilan Rogel BLAST % Normal [facility] Comment on above: Performed By: #### C CAIN ####[facility] Caqzfllwgo[address] [place], [place] [address]Dr. Shahbaz Rogel CORRECTED WBC Normal 4.0-11.0 [facility] Comment on above: Performed By: #### C BCBRICE ####[facility] Mbarcpdlic[address] [place], [place] [address]Dr. Yijarrod Rogel EOS # 0.25 103/ul Normal 0.00-0.70 [facility] Comment on above: Performed By: #### C BCBRICE ####[facility] Wyjhzdgdwi[address] [place], [place] [address]Dr. Yijarrod Rogel EOS% 4.0 % Normal 0.9-7.0 [facility] Comment on above: Performed By: #### C BCBRICE ####[facility] Avojdr[address]ut[address] [place] [address]Dr. Shahbaz Rogel HCT 46.8 % Normal 36.0-48.0 [facility] Comment on above: Performed By: #### C CAIN ####[facility] Wotfjsjkbi6[address] [place] [address]Dr. Shahbaz Rogel HGB 14.9 g/dl Normal 12.0-16.0 [facility] Comment on above: Performed By: #### C CAIN ####[facility] Eyztwaswas4685 [place] [address]Dr. Shahbaz Rogel LYMPHM # 0.68 103/ul Critically low 1.20-3.80 [facility] Comment on above: Performed By: #### C CAIN ####[facility] Tdbjopyhgz[address] [place] [address]Dr. Shahbaz Rogel LYMPHM% 11.0 % Critically low 20.5-60.0 [facility] Comment on above: Performed By: #### C CAIN ####[facility] Kvrjovzyjk[address] [place] [address]Dr. Shahbaz Rogel MCH 27.6 pg Normal 26.7-34.0 [facility] Comment on above: Performed By: #### C CAIN ####[facility] Cvvxbrjeub6152 [place] [address]Dr. Shahbaz Rogel MCHC 31.8 g/dl Normal 29.9-35.2 [facility] Comment on above: Performed By: #### C CAIN ####[facility] Fgmmfzmywu14[address] [place] [address]Dr. Shahbaz Rogel MCV 86.8 fL Normal 81.0-99.0 [facility] Comment on above: Performed By: #### C CAIN ####[facility] [address]imwz[address] [place], [place] [address]Dr. Shahbaz Rogel METAMYELOCYTE # Normal [facility] Comment on above: Performed By: #### C CAIN ####[facility] Nfirqhzpja[address] [place] [address]Dr. Shahbaz Rogel METAMYELOCYTE % Normal [facility] Comment on above: Performed By: #### C CAIN ####[facility] Vtkjpeenzo6[address] [place], [place] [address]Of. Shahbaz Rogel MONOM# 0.19 103/ul Critically low 0.30-0.80 [facility] Comment on above: Performed By: #### C CAIN ####[facility] Sdtkuvjkna5[address] [place] [address]Dr. Shahbaz Rogel MONOM% 3.0 % Normal 1.7-12.0 [facility] Comment on above: Performed By: #### C CAIN ####[facility] Mwziuivhxs75[address] [place] [address]Dr. Shahbaz Rogel MPV 9.6 fL Normal 9.5-13.5 [facility] Comment on above: Performed By: #### Cheri BARLOW ####[facility] Ssgqmyrali[address] [place] [address]Dr. Shahbaz Rogel MYELOCYTE # Normal [facility] Comment on above: Performed By: #### Cheri BARLOW ####[facility] Ttimfisxmx[address] [place] [address]Dr. Shahbaz Rogel MYELOCYTE % Normal [facility] Comment on above: Performed By: #### Cheri BARLOW ####[facility] Fmokyfzesa8[address] [place] [address]Dr. Shahbaz Rogel NRBC Normal [facility] Comment on above: Performed By: #### Cheri BARLOW ####[facility] Ascdtvyqtg[address] [place] [address]Dr. Shahbaz Rogel PLT 203 103/ul Normal 150-450 [facility] Comment on above: Performed By: #### Cheri BARLOW ####[facility] Zqndhdbzls5654 [place] [address]Dr. Shahbaz Rogel RBC 5.39 106/ul Normal 4.20-5.40 [facility] Comment on above: Performed By: #### Cheri BARLOW ####[facility] Xewfraigzv[address] [place] [address]Dr. Shahbaz Rogel RDW 13.7 % Normal 11.0-15.0 [facility] Comment on above: Performed By: #### C BCMAN ####[facility] Sejnzaoxuy[address] [place], [place] [address]Jz. Shahbaz Rogel SEG # 4.96 103/ul Normal 1.40-6.50 [facility] Comment on above: Performed By: #### C BCMAN ####[facility] Butdlyetbc5550 [place], [place] [address]Wi. Shahbaz Rogel SEG % 80.0 % Critically high 43.0-75.0 [facility] Comment on above: Performed By: #### C BCMAN ####[facility] Elbzykihwf5104 [place], [place] [address]Xo. Shahbaz Rogel WBC 6.2 103/ul Normal 4.0-11.0 [facility] Comment on above: Performed By: #### C BCMAN ####[facility] Wigtirgksm0353 [place], [place] [address]Zh. Shahbaz Rogel CULTURE BLOODon 01-18-2022 Microscopic examination of blood, culture Culture Observations: No growth at 5 days. Normal [facility] Comment on above: Performed By: #### B LDCX2 ####[facility] Cxkvgqbuyp2335 [place], [place] [address]Xi. Shahbaz Rogel Microscopic examination of blood, culture Culture Observations: No growth at 5 days Normal [facility] Comment on above: Performed By: #### B LDCX1 ####[facility] Rwjpolbtvi8[address] [place] [address]Dr. Shahbaz Rogel Covid-19 PCR (CVDTBH)on 12-31 SARS-CoV-2 (COVID-19) RNA PAVAN+probe Ql (Unsp spec) Not detected Normal NOT DETECTED [facility] Comment on above: Result Comment: This test is not yet approved or cleared by the [place] FDA. When there are no FDA-approved or cleared tests available, and other criteria are met, FDA can make tests available under an emergency access mechanism called an Emergency Use Authorization (EUA). The EUA for this test is supported by the [place] of Health and Human Service's (HHS's) declaration [...] Performed By: #### C VDTBH ####[facility] [address]cp[address] [place] [address]. Shahbaz Rogel D-DIMERon 01-18-2022 D-DIMER 0.29 mg/L FEU Normal 0.19-0.50 [facility] Comment on above: Performed By: #### D DIM ####[facility] [address] [place] [address] Shahbaz [facility] D-DIMER COMMENTS SEE BELOW Normal [facility] Comment on above: Result Comment: Incr [...] Performed By: #### D DIM ####[facility] [address]tlazcrhgf[address] [place] [address]. Shahbaz Rogel INFLUENZA A AND B AGon 01-18 INFLUANEGH SEE BELOW Normal [facility] Comment on above: Result Comment: Nega tive for Flu A protein angiten. Infection due to Flu A cannot be ruled out. Flu A angiten in the sample may be below the detection limit of the test. Performed By: #### I NFLUAB ####[facility] [address]rlsskffnm[address] [place], [place] [address]Dr. Shahbaz Rogel INFLUBNEGH SEE BELOW Normal [facility] Comment on above: Result Comment: Nega tive for Flu B protein antigen. Infection due to Flu B cannot be ruled out. Flu B antigen in the sample may be below the detection limit of the test. Performed By: #### I NFLUAB ####[facility] Gxnaduyjao[address] [place], [place] [address]Dr. Shahbaz Rogel INFLUENZA A AG Negative Normal NEGATIVE SEE COMMENT [facility] Comment on above: Performed By: #### I NFLUAB ####[facility] Myamexzxux93[address] [place], [place] [address]Dr. Shahbaz Rogel INFLUENZA B AG Negative Normal NEGATIVE SEE COMMENT [facility] Comment on above: Performed By: #### I NFLUAB ####[facility] Tyzmbixszb[address] [place], [place] [address]Dr. Shahbaz Rogel INTERNAL CONTROLS Within Normal Limits Normal Wi thin Normal Limits [facility] Comment on above: Performed By: #### I NFLUAB ####[facility] Qbbufquxcg17[address] [place], [place] [address]Dr. Shahbaz Rogel LACTATE/LACTIC ACIDon 2021 Lactate [Moles/Vol] 1.0 mmol/L Normal 0.7-2.0 [facility] Comment on above: Performed By: #### L ACT ####[facility] Ciwzkucdqr[address] [place], [place] [address]Dr. Shahbaz Rogel PROF 14(COMP METB)on 022 Albumin [Mass/Vol] 3.8 g/dL Normal 3.4-5.0 [facility] Comment on above: Performed By: #### C MP, BNP, HSTROPN ####[facility] Wyzcnfklbe[address] [place], [place] [address]Dr. Shahbaz Rogel Albumin/Globulin [Mass ratio] 1.0 {ratio} Normal [facility] Comment on above: Performed By: #### C MP, BNP, HSTROPN ####[facility] Zogwqsbbra[address] [place], [place] [address]Dr. Shahbaz Rogel ALP [Catalytic activity/Vol] 116 U/L Normal 46-116 [facility] Comment on above: Performed By: #### C MP, BNP, HSTROPN ####[facility] Qtxtsmdcaz[address] [place] [address]Dr. Shahbaz Rogel ALT [Catalytic activity/Vol] 16 U/L Normal 14-59 [facility] Comment on above: Performed By: #### C MP, BNP, HSTROPN ####[facility] Uraaonxbpq5[address] [place] [address]Dr. Shahbaz Rogel Anion gap [Moles/Vol] 9.4 mmol/L Normal [facility] Comment on above: Performed By: #### C MP, BNP, HSTROPN ####[facility] Fpinovadis54[address] [place] [address]Dr. Shahbaz Rogel AST [Catalytic activity/Vol] 19 U/L Normal 15-37 [facility] Comment on above: Performed By: #### C MP, BNP, HSTROPN ####[facility] Ovaswnzuzf[address] [place], [place] [address]Dr. Shahbaz Rogel Bilirubin [Mass/Vol] 0.5 mg/dL Normal 0.2-1.3 [facility] Comment on above: Performed By: #### C MP, BNP, HSTROPN ####[facility] Ympplaakxu[address] [place], [place] [address]Dr. Shahbaz Rogel Calcium [Mass/Vol] 8.9 mg/dL Normal 8.5-10.1 [facility] Comment on above: Performed By: #### C MP, BNP, HSTROPN ####[facility] Zeuvqa[address]do[address] [place], [place] [address]Dr. Shahbaz Rogel Chloride [Moles/Vol] 104 mmol/L Normal 98-107 [facility] Comment on above: Performed By: #### C MP, BNP, HSTROPN ####[facility] Adkcwheaja[address] [place], [place] [address]Dr. Shahbaz Rogel CO2 [Moles/Vol] 27.2 mmol/L Normal 22.0-30.0 [facility] Comment on above: Performed By: #### C MP, BNP, HSTROPN ####[facility] Eiirzrksrf[address] [place], [place] [address]Dr. Shahbaz Rogel Creatinine [Mass/Vol] 0.99 mg/dL Normal 0.52-1.04 [facility] Comment on above: Performed By: #### C MP, BNP, HSTROPN ####[facility] [address]dek[address] [place] [address]Dr. Shahbaz Rogel EGFR-AF MARSHALLESE >60 Normal >=60 [facility] Comment on above: Performed By: #### C MP, BNP, HSTROPN ####[facility] [address]fqfd[address] [place] [address]Dr. Shahbaz Rogel EGFR-NON AF MARSHALLESE 58 mL/min/1.73m2 Critically low >=60 [facility] Comment on above: Performed By: #### C MP, BNP, HSTROPN ####[facility] [address]rlezmv[address] [place] [address]Dr. Shahbaz Rogel Globulin (S) [Mass/Vol] 3.8 g/dL Normal [facility] Comment on above: Performed By: #### C MP, BNP, HSTROPN ####[facility] Bjzmnayakh[address] [place] [address]Dr. Shahbaz Rogel Glucose [Mass/Vol] 104 mg/dL Normal 74-106 [facility] Comment on above: Performed By: #### C MP, BNP, HSTROPN ####[facility] [facility] [id number] [place] [address]Dr. Shahbaz Rogel Potassium [Moles/Vol] 3.6 mmol/L Normal 3.4-5.0 [facility] Comment on above: Performed By: #### C MP, BNP, HSTROPN ####[facility] [id number] [place] [address]Dr. Shahbaz Rogle Protein [Mass/Vol] 7.6 g/dL Normal 6.1-8.2 [facility] Comment on above: Performed By: #### C MP, BNP, HSTROPN ####[facility] [id number] [place] [address]Dr. Shahbaz Rogel Sodium [Moles/Vol] 137 mmol/L Normal 137-145 [facility] Comment on above: Performed By: #### C MP, BNP, HSTROPN ####[facility] [id number] [place] [id number]. Shahbaz Rogel Urea nitrogen [Mass/Vol] 9.0 mg/dL Normal 7.0-18.0 [facility] Comment on above: Performed By: #### C MP, BNP, HSTROPN ####[facility] [id number] [place] [id number]. Shahbaz Rogel Urea nitrogen/Creatinine [Mass ratio] 9.1 mg/mg Normal [facility] Comment on above: Performed By: #### C MP, BNP, HSTROPN ####[facility] [id number] [place] [address]Dr. Shahbaz Rogel TROPONIN, HIGH SENSITIVITYon 01-18-2022 HSTROP 6.4 pg/mL Normal 4.0-35.5 [facility] Comment on above: Result Comment: CUT- OFF POINTS HAVE BEEN ESTABLISHED BASED ON THE FOURTH UNIVERSAL DEFINITIONS OF MYOCARDIALINFARCTION. THE UPPER REFERENCE LIMIT (URL) OF TROPONIN, DEFINED THE 99TH PERCENTILE OFcTnI DISTRIBUTION IN A REFERENCE POPULATION, HAS BEEN CONFIRMED THE DECISION THRESHOLDFOR SC DIAGNOSIS. Performed By: #### C MP, BNP, HSTROPN ####[facility] [id number] [place] [address]Dr. Shahbaz Rogel XR CHEST 2 Von 01-18-2022 XR CHEST 2 V Normal [facility] URINALYSIS REFLEXon 04-04-20 20 Appearance (U) CLEAR Normal CLEAR [facility] Comment on above: Order Comment: No: D o not add to previous draw Performed By: #### 1 0070, 82382, 32835, 15895, 73758, 66345 #### [facility] [address] [place] [address], [facility] Bilirubin [Mass/Vol] Negative Normal NEGATIVE [facility] Comment on above: Order Comment: No: D o not add to previous draw Performed By: #### 1 0070, 53305, 89088, 49143, 40429, 55186 #### [facility] [address] [place] [address], [place] BLOOD Negative Normal NEGATIVE [facility] Comment on above: Order Comment: No: D o not add to previous draw Performed By: #### 1 0070, 58042, 41594, 39845, 26156, 75274 #### [facility] [address] [place] [address], [place] Color (U) YELLOW Normal YELLOW [facility] Comment on above: Order Comment: No: D o not add to previous draw Performed By: #### 1 0070, 64628, 21934, 27822, 67655, 79200 #### [facility] [address] [place] [address], [place] Glucose [Mass/Vol] Negative Normal NEGATIVE [facility] Comment on above: Order Comment: No: D o not add to previous draw Performed By: #### 1 0070, 07150, 69596, 62417, 72561, 86755 #### [facility] [address] [place] [address], [place] KETONE Negative Normal NEGATIVE [facility] Comment on above: Order Comment: No: D o not add to previous draw Performed By: #### 1 0070, 30758, 32906, 42818, 08790, 65192 #### [facility] [address] [place] [address], [place] LEUK ELIU Negative Normal NEGATIVE [facility] Comment on above: Order Comment: No: D o not add to previous draw Performed By: #### 1 0070, 19773, 80132, 87057, 82142, 36866 #### [facility] [address] [place] [address], [place] MICRO NOT DONE Normal [facility] Comment on above: Order Comment: No: D o not add to previous draw Result Comment: Micr oscopics not performed on urines with negative chemical reactions unless requested in original order Performed By: #### 1 0070, 85556, 07275, 89116, 80567, 32578 #### [facility] [address] [facility] [place] [address], [facility] Nitrite Ql (U) Negative Normal NEGATIVE [facility] Comment on above: Order Comment: No: D o not add to previous draw Performed By: #### 1 0070, 30813, 33259, 61550, 32363, 70360 #### [facility] [address] [place] [address], [facility] pH (Bld) 5.0 Normal 5.0-8.0 [facility] Comment on above: Order Comment: No: D o not add to previous draw Performed By: #### 1 0070, 44264, 70971, 83743, 83776, 19096 #### [facility] [address] [place] [address], [facility] Protein (U) [Mass/Vol] Negative Normal NEGATIVE [facility] Comment on above: Order Comment: No: D o not add to previous draw Performed By: #### 1 0070, 25622, 69324, 53821, 86312, 96143 #### [facility] [address] SPEC GRAV 1.012 Low 1.015-1.02 0 [facility] Comment on above: Order Comment: No: D o not add to previous draw Performed By: #### 1 0070, 78202, 80076, 45532, 91164, 52397 #### [facility] [address] [place] [address], [facility] BASIC METABOLIC PANELon 07-0 2-2020 Calcium [Mass/Vol] 8.4 mg/dL Low 8.6-10.3 [facility] Comment on above: Order Comment: No: D o not add to previous draw Performed By: #### 1 0070, 36540, 48902, 92735, 71381, 56915 #### [facility] [address] [facility] [place] [address], [facility] Chloride [Moles/Vol] 101 mmol/L Normal 98-107 [facility] Comment on above: Order Comment: No: D o not add to previous draw Performed By: #### 1 0070, 70752, 71130, 61418, 89342, 74274 #### [facility] [address] [place] [address], [place] CO2 [Moles/Vol] 29 mmol/L Normal 21-31 [facility] Comment on above: Order Comment: No: D o not add to previous draw Performed By: #### 1 0070, 72488, 35148, 04656, 96920, 34288 #### [facility] [address] [place] [address], [place] Creatinine [Mass/Vol] 0.79 mg/dL Normal 0.60-1.20 [facility] Comment on above: Order Comment: No: D o not add to previous draw Performed By: #### 1 0070, 23042, 10176, 90012, 23430, 00245 #### [facility] [address] [place] [address], [place] GFR/1.73 sq M predicted among blacks MDRD (S/P/Bld) [Vol rate/Area] mL/min/{1.73_m2} Normal >60 [facility] Comment on above: Order Comment: No: D o not add to previous draw Performed By: #### 1 0070, 31860, 19063, 61402, 40274, 98984 #### [facility] [address] [place] [address], [place] GFR/1.73 sq M predicted among non-blacks MDRD (S/P/Bld) [Vol rate/Area] mL/min/{1.73_m2} Normal >60 [facility] Comment on above: Order Comment: No: D o not add to previous draw Performed By: #### 1 0070, 23818, 18005, 79666, 10287, 20350 #### [facility] [address] [place] [address], [facility] Glucose [Mass/Vol] 91 mg/dL Normal 70-100 [facility] Comment on above: Order Comment: No: D o not add to previous draw Performed By: #### 1 0070, 79943, 47114, 10101, 28617, 44425 #### [facility] [address] [place] [id number], [facility] Potassium [Moles/Vol] 3.9 mmol/L Normal 3.5-5.1 [facility] Comment on above: Order Comment: No: D o not add to previous draw Performed By: #### 1 0070, 02234, 49997, 73923, 05780, 47565 #### [facility] [address] [facility] [place] [address], [facility] Sodium [Moles/Vol] 133 mmol/L Low 136-145 [facility] Comment on above: Order Comment: No: D o not add to previous draw Performed By: #### 1 0070, 36951, 97114, 34063, 69305, 50173 #### [facility] [address] [facility] [place] [place] [address], [facility] Urea nitrogen [Mass/Vol] 10 mg/dL Normal 7-25 [facility] Comment on above: Order Comment: No: D o not add to previous draw Performed By: #### 1 0070, 62129, 80195, 13909, 10962, 68921 #### [facility] [address] [place] [id number], [facility] CBC W/DIFFon 04-02-2020 ABS BASOPHILS 0.0 10*3/uL Normal 0.0-0.2 [facility] Comment on above: Order Comment: No: D o not add to previous draw Performed By: #### 1 0070, 24964, 86360, 20004, 07669, 04150 #### [facility] [address] [place] [address], [facility] ABS IMM GRANS 0.0 10*3/uL Normal 0.0-0.2 [facility] Comment on above: Order Comment: No: D o not add to previous draw Performed By: #### 1 0070, 56841, 27070, 71879, 59211, 41791 #### [facility] [address] [place] [address], [facility] ABS NEUTROPHILS 4.5 10*3/uL Normal 1.6-7.6 [facility] Comment on above: Order Comment: No: D o not add to previous draw Performed By: #### 1 0070, 37264, 34471, 89501, 30578, 90017 #### [facility] [address] [place] [address], [facility] Basophils/100 WBC (Bld) 0.2 % Normal 0.0-1.0 [facility] Comment on above: Order Comment: No: D o not add to previous draw Performed By: #### 1 0070, 81933, 73040, 34967, 80155, 67215 #### [facility] [address] [place] [address], [facility] Eosinophils (Bld) [#/Vol] 0.2 10*3/uL Normal 0.0-0.5 [facility] Comment on above: Order Comment: No: D o not add to previous draw Performed By: #### 1 0070, 96289, 97311, 63527, 94817, 94843 #### [facility] [address] [facility] [place] [place] [address], [facility] Eosinophils/100 WBC (Bld) 3.6 % Normal 0.0-6.0 [facility] Comment on above: Order Comment: No: D o not add to previous draw Performed By: #### 1 0070, 16752, 96773, 64390, 95086, 91636 #### [facility] [address] [facility] [place] [address], [facility] Erythrocyte distribution width (RBC) [Ratio] 12.7 % Normal 11.5-15.0 [facility] Comment on above: Order Comment: No: D o not add to previous draw Performed By: #### 1 0070, 61261, 44417, 16730, 30256, 99178 #### [facility] [address] [place] [address], [facility] Hematocrit (Bld) [Volume fraction] 42.9 % Normal 36.0-45.0 [facility] Comment on above: Order Comment: No: D o not add to previous draw Performed By: #### 1 0070, 68967, 58380, 41409, 56063, 68629 #### [facility] [address] [facility] [place] [address], [facility] Hemoglobin (Bld) [Mass/Vol] 13.5 g/dL Normal 12.0-15.0 [facility] Comment on above: Order Comment: No: D o not add to previous draw Performed By: #### 1 0070, 15695, 77354, 93025, 05017, 87060 #### [facility] [address] [place] [address], [facility] IMMATURE GRANS 0.3 % Normal 0.0-1.0 [facility] Comment on above: Order Comment: No: D o not add to previous draw Performed By: #### 1 0070, 41848, 81960, 52181, 27364, 06506 #### [facility] [address] [place] [address], [facility] Lymphocytes (Bld) [#/Vol] 1.1 10*3/uL Low 1.2-4.0 [facility] Comment on above: Order Comment: No: D o not add to previous draw Performed By: #### 1 0070, 26480, 84391, 57758, 95814, 10792 #### [facility] [address] [place] [id number], [facility] Lymphocytes/100 WBC (Bld) 18.0 % Low 20.0-45.0 [facility] Comment on above: Order Comment: No: D o not add to previous draw Performed By: #### 1 0070, 13049, 31454, 69710, 16223, 17174 #### [facility] [address] [place] [address], [facility] MCH (RBC) [Entitic mass] 27.4 pg Normal 27.0-33.0 [facility] Comment on above: Order Comment: No: D o not add to previous draw Performed By: #### 1 0070, 25540, 02128, 07129, 62589, 93415 #### [facility] [address] [facility] [place] [address], [facility] MCHC (RBC) [Mass/Vol] 31.5 g/dL Low 32.0-35.0 [facility] Comment on above: Order Comment: No: D o not add to previous draw Performed By: #### 1 0070, 46973, 43049, 67895, 50264, 83104 #### [facility] [address] [facility] [place] [address], [facility] MCV (RBC) [Entitic vol] 87.0 fL Normal 82.0-98.0 [facility] Comment on above: Order Comment: No: D o not add to previous draw Performed By: #### 1 0070, 31011, 64042, 55925, 43444, 31186 #### [facility] [address] [place] [address], [facility] Monocytes (Bld) [#/Vol] 0.3 10*3/uL Normal 0.1-1.0 [facility] Comment on above: Order Comment: No: D o not add to previous draw Performed By: #### 1 0070, 03975, 13934, 87700, 19611, 79113 #### [facility] [address] [place] [id number], [facility] MONOS 5.5 % Normal 5.0-12.0 [facility] Comment on above: Order Comment: No: D o not add to previous draw Performed By: #### 1 0070, 79102, 20931, 31755, 97297, 96014 #### [facility] [address] [place] [id number], [facility] Neutrophils/100 WBC (Bld) 72.4 % High 40.0-72.0 [facility] Comment on above: Order Comment: No: D o not add to previous draw Performed By: #### 1 0070, 83073, 70516, 86711, 92296, 64268 #### [facility] [address] [facility] [place] [address], [facility] Nucleated RBC/100 WBC (Bld) [Ratio] 0 % Normal 0-0 [facility] Comment on above: Order Comment: No: D o not add to previous draw Performed By: #### 1 0070, 83524, 42832, 00021, 14468, 49363 #### [facility] [address] [facility] [place] [address], [place] PLAT CNT 264 10*3/uL Normal 150-400 [facility] Comment on above: Order Comment: No: D o not add to previous draw Performed By: #### 1 0070, 44621, 91785, 38179, 22929, 81213 #### [facility] [address] [facility] [place] [address], [facility] RBC (Bld) [#/Vol] 4.93 10*6/uL Normal 3.80-5.00 [facility] Comment on above: Order Comment: No: D o not add to previous draw Performed By: #### 1 0070, 38177, 41830, 50602, 38821, 03805 #### [facility] [address] [place] [address], [place] WBC (Bld) [#/Vol] 6.17 10*3/uL Normal 4.00-10.60 [facility] Comment on above: Order Comment: No: D o not add to previous draw Performed By: #### 1 0070, 08034, 23600, 77063, 02793, 41061 #### [facility] [address] [place] [address], [facility] MAGNESIUM BLOODon 04-02-2020 Magnesium [Mass/Vol] 2.0 mg/dL Normal 1.9-2.7 [facility] Comment on above: Order Comment: No: D o not add to previous draw Performed By: #### 1 0070, 74413, 08442, 66089, 15776, 26675 #### [facility] [address] [place] [address], [facility] PHOSPHORUS BLOODon 0 Phosphate [Mass/Vol] 3.1 mg/dL Normal 2.5-5.0 [facility] Comment on above: Order Comment: No: D o not add to previous draw Performed By: #### 1 0070, 67374, 93974, 82983, 23754, 88810 #### [facility] [address] [place] [address], [facility] POC GLUCOSE LABon 04-02-2020 Glucose [Mass/Vol] 134 mg/dL High 70-100 [facility] Comment on above: Performed By: #### 1 0070, 64148, 97625, 93578, 99726, 39593 #### [facility] [address] [place] [address], [facility] UFH HEPARIN ASSAYon 04-02-20 20 UNFRACTIONATED HEPARIN 0.91 IU/mL Critically high 0.30-0.7 0 [facility] Comment on above: Result Comment: [place] roxaban and Apixaban will interfere with the anti Xa assay used to monitor UFH and LMWH. RESULTS CHECKED AND CALLED. ACCURATELY READ BACK BY LYNN POLANCO RN @ [id number] Performed By: #### 1 0070, 92419, 73021, 48005, 71606, 39370 #### [facility] [address] [place] [address], [facility] ALBUMIN BLOODon 04-01-2020 Albumin [Mass/Vol] 3.0 g/dL Low 3.5-5.7 [facility] Comment on above: Performed By: #### 1 0070, 33767, 85672, 36324, 31108, 81921 #### [facility] [address] [place] [address], [facility] BASIC METABOLIC PANELon Calcium [Mass/Vol] 8.1 mg/dL Low 8.6-10.3 [facility] Comment on above: Order Comment: No: D o not add to previous draw Performed By: #### 1 0070, 27621, 99560, 54664, 30487, 62977 #### [facility] [address] [place] [address], [place] Chloride [Moles/Vol] 105 mmol/L Normal 98-107 [facility] Comment on above: Order Comment: No: D o not add to previous draw Performed By: #### 1 0070, 54464, 74210, 62714, 50105, 77657 #### [facility] [address] [place] [address], [facility] CO2 [Moles/Vol] 26 mmol/L Normal 21-31 [facility] Comment on above: Order Comment: No: D o not add to previous draw Performed By: #### 1 0070, 34197, 88762, 04728, 53759, 77221 #### [facility] [address] [place] [address], [place] Creatinine [Mass/Vol] 0.65 mg/dL Normal 0.60-1.20 [facility] Comment on above: Order Comment: No: D o not add to previous draw Performed By: #### 1 0070, 77385, 62719, 39639, 26556, 40304 #### [facility] [address] [place] [address], [place] GFR/1.73 sq M predicted among blacks MDRD (S/P/Bld) [Vol rate/Area] mL/min/{1.73_m2} Normal >60 [facility] Comment on above: Order Comment: No: D o not add to previous draw Performed By: #### 1 0070, 71227, 06813, 63789, 55803, 82997 #### [facility] [address] [place] [address], [place] GFR/1.73 sq M predicted among non-blacks MDRD (S/P/Bld) [Vol rate/Area] mL/min/{1.73_m2} Normal >60 [facility] Comment on above: Order Comment: No: D o not add to previous draw Performed By: #### 1 0070, 74687, 23658, 43570, 14117, 13385 #### [facility] [address] [place] [address], [place] Glucose [Mass/Vol] 87 mg/dL Normal 70-100 [facility] Comment on above: Order Comment: No: D o not add to previous draw Performed By: #### 1 0070, 49164, 00343, 81909, 37086, 01852 #### [facility] [address] [place] [address], [place] Potassium [Moles/Vol] 4.3 mmol/L Normal 3.5-5.1 [facility] Comment on above: Order Comment: No: D o not add to previous draw Performed By: #### 1 0070, 88570, 62220, 69998, 83483, 01445 #### [facility] [address] [place] [address], [place] Sodium [Moles/Vol] 136 mmol/L Normal 136-145 [facility] Comment on above: Order Comment: No: D o not add to previous draw Performed By: #### 1 0070, 36432, 34553, 05750, 13642, 55988 #### [facility] [address] [place] [address], [place] Urea nitrogen [Mass/Vol] 8 mg/dL Normal 7-25 [facility] Comment on above: Order Comment: No: D o not add to previous draw Performed By: #### 1 0070, 70171, 40130, 06912, 46005, 13669 #### [facility] [address] CBC W/DIFFon 04-01-2020 ABS BASOPHILS 0.0 10*3/uL Normal 0.0-0.2 [facility] Comment on above: Order Comment: No: D o not add to previous draw Performed By: #### 1 0070, 36198, 20675, 64350, 66123, 82972 #### [facility] [address] ABS IMM GRANS 0.0 10*3/uL Normal 0.0-0.2 [facility] Comment on above: Order Comment: No: D o not add to previous draw Performed By: #### 1 0070, 54170, 57932, 29923, 13852, 82883 #### [facility] [address] ABS NEUTROPHILS 3.4 10*3/uL Normal 1.6-7.6 [facility] Comment on above: Order Comment: No: D o not add to previous draw Performed By: #### 1 0070, 37436, 15938, 09323, 46350, 86977 #### [facility] [address] [place] [address], [facility] Basophils/100 WBC (Bld) 0.2 % Normal 0.0-1.0 [facility] Comment on above: Order Comment: No: D o not add to previous draw Performed By: #### 1 0070, 37808, 63772, 70093, 69213, 72863 #### [facility] [address] [place] [address], [facility] Eosinophils (Bld) [#/Vol] 0.1 10*3/uL Normal 0.0-0.5 [facility] Comment on above: Order Comment: No: D o not add to previous draw Performed By: #### 1 0070, 30520, 81344, 02486, 70201, 29062 #### [facility] [address] [place] [address], [facility] Eosinophils/100 WBC (Bld) 2.6 % Normal 0.0-6.0 [facility] Comment on above: Order Comment: No: D o not add to previous draw Performed By: #### 1 0070, 08300, 22563, 48851, 99649, 90612 #### [facility] [address] [facility] [place] [address], [facility] Erythrocyte distribution width (RBC) [Ratio] 13.0 % Normal 11.5-15.0 [facility] Comment on above: Order Comment: No: D o not add to previous draw Performed By: #### 1 0070, 67995, 81289, 95208, 87636, 51253 #### [facility] [address] [place] [address], [facility] Hematocrit (Bld) [Volume fraction] 40.9 % Normal 36.0-45.0 [facility] Comment on above: Order Comment: No: D o not add to previous draw Performed By: #### 1 0070, 50558, 44156, 44848, 61711, 29497 #### [facility] [address] [place] [address], [facility] Hemoglobin (Bld) [Mass/Vol] 12.8 g/dL Normal 12.0-15.0 [facility] Comment on above: Order Comment: No: D o not add to previous draw Performed By: #### 1 0070, 28609, 17271, 63953, 93576, 26857 #### [facility] [address] [place] [address], [facility] IMMATURE GRANS 0.6 % Normal 0.0-1.0 [facility] Comment on above: Order Comment: No: D o not add to previous draw Performed By: #### 1 0070, 83820, 63158, 44278, 00803, 10304 #### [facility] [address] [facility] [place] [address], [facility] Lymphocytes (Bld) [#/Vol] 1.2 10*3/uL Normal 1.2-4.0 [facility] Comment on above: Order Comment: No: D o not add to previous draw Performed By: #### 1 0070, 79919, 43825, 03656, 13031, 64177 #### [facility] [address] [facility] [place] [address], [facility] Lymphocytes/100 WBC (Bld) 23.7 % Normal 20.0-45.0 [facility] Comment on above: Order Comment: No: D o not add to previous draw Performed By: #### 1 0070, 60760, 38286, 49893, 20675, 18230 #### [facility] [address] [place] [address], [facility] MCH (RBC) [Entitic mass] 27.4 pg Normal 27.0-33.0 [facility] Comment on above: Order Comment: No: D o not add to previous draw Performed By: #### 1 0070, 17584, 51249, 33529, 68814, 71538 #### [facility] [address] [place] [address], [facility] MCHC (RBC) [Mass/Vol] 31.3 g/dL Low 32.0-35.0 [facility] Comment on above: Order Comment: No: D o not add to previous draw Performed By: #### 1 0070, 03089, 44678, 23189, 75932, 54360 #### [facility] [address] [place] [id number], [facility] MCV (RBC) [Entitic vol] 87.6 fL Normal 82.0-98.0 [facility] Comment on above: Order Comment: No: D o not add to previous draw Performed By: #### 1 0070, 91807, 45207, 71632, 84328, 95825 #### [facility] [address] Monocytes (Bld) [#/Vol] 0.3 10*3/uL Normal 0.1-1.0 [facility] Comment on above: Order Comment: No: D o not add to previous draw Performed By: #### 1 0070, 93538, 35258, 95631, 68109, 27031 #### [facility] [address] MONOS 5.4 % Normal 5.0-12.0 [facility] Comment on above: Order Comment: No: D o not add to previous draw Performed By: #### 1 0070, 62890, 96679, 94781, 17978, 34111 #### [facility] [address] Neutrophils/100 WBC (Bld) 67.5 % Normal 40.0-72.0 [facility] Comment on above: Order Comment: No: D o not add to previous draw Performed By: #### 1 0070, 34259, 46526, 26800, 18498, 11395 #### [facility] [address] [place] [address], [facility] Nucleated RBC/100 WBC (Bld) [Ratio] 0 % Normal 0-0 [facility] Comment on above: Order Comment: No: D o not add to previous draw Performed By: #### 1 0070, 85453, 53598, 99313, 51789, 51072 #### [facility] [address] [place] [address], [facility] PLAT CNT 237 10*3/uL Normal 150-400 [facility] Comment on above: Order Comment: No: D o not add to previous draw Performed By: #### 1 0070, 85899, 38729, 27902, 66083, 75750 #### [facility] [address] [facility] [place] [address], [facility] RBC (Bld) [#/Vol] 4.67 10*6/uL Normal 3.80-5.00 [facility] Comment on above: Order Comment: No: D o not add to previous draw Performed By: #### 1 0070, 60424, 29882, 04428, 44479, 89506 #### [facility] [address] [facility] [place] [address], [facility] WBC (Bld) [#/Vol] 4.98 10*3/uL Normal 4.00-10.60 [facility] Comment on above: Order Comment: No: D o not add to previous draw Performed By: #### 1 0070, 40964, 79803, 68440, 79609, 44616 #### [facility] [address] [place], [place] [id number] [place] [address] CHEST AND LATERALon 04-01-20 CHEST AND LATERAL [facility] Department of Radiology [address] [place], [place] [address] Patient Name: EMIGDIO APODACA : 1965 Sex: F Age: Race: White Pt. Location: [id number] Patient Status: I Ordered Date: 04/01/2020 7:00:00 [...] reports Electronically signed: Shari Salcedo. Transcribed by: [email or web address], User Resident: ANNE VEGA Electronically Signed by: SHARI SALCEDO @ 04/01/2020 10:12 AM I personally read this/these film(s) with this resident Normal [facility] Comment on above: Order Comment: No: D o not add to previous draw MAGNESIUM BLOODon 04-01-2020 Magnesium [Mass/Vol] 2.1 mg/dL Normal 1.9-2.7 [facility] Comment on above: Order Comment: No: D o not add to previous draw Performed By: #### 1 0070, 77457, 85032, 96014, 45307, 96336 #### [facility] [address] [place] [address], [facility] APTTon 03-31-2020 aPTT Coag (Bld) [Time] 28.3 s Normal 25.0-35.0 Th e [facility] Comment on above: Order Comment: [...] THIS PURPOSE. Performed By: #### 1 0070, 20507, 95356, 12019, 30825, 48923 #### [facility] [address] [place] [address], [facility] BASIC METABOLIC PANELon 06-3 Calcium [Mass/Vol] 7.8 mg/dL Low 8.6-10.3 [facility] Comment on above: Order Comment: No: D o not add to previous draw Performed By: #### 1 0070, 65844, 67990, 38514, 08400, 54349 #### [facility] [address] [place] [address], [facility] Chloride [Moles/Vol] 108 mmol/L High 98-107 [facility] Comment on above: Order Comment: No: D o not add to previous draw Performed By: #### 1 0070, 77926, 91493, 32920, 15538, 93494 #### [facility] [address] [place] [address], [facility] CO2 [Moles/Vol] 26 mmol/L Normal 21-31 [facility] Comment on above: Order Comment: No: D o not add to previous draw Performed By: #### 1 0070, 52821, 72751, 86545, 31408, 64987 #### [facility] [address] [place] [address], [facility] Creatinine [Mass/Vol] 0.76 mg/dL Normal 0.60-1.20 [facility] Comment on above: Order Comment: No: D o not add to previous draw Performed By: #### 1 0070, 27403, 77728, 82847, 40285, 24557 #### [facility] [address] [place] [address], [place] GFR/1.73 sq M predicted among blacks MDRD (S/P/Bld) [Vol rate/Area] mL/min/{1.73_m2} Normal >60 [facility] Comment on above: Order Comment: No: D o not add to previous draw Performed By: #### 1 0070, 59075, 03667, 51549, 05927, 07260 #### [facility] [address] [place] [address], [facility] GFR/1.73 sq M predicted among non-blacks MDRD (S/P/Bld) [Vol rate/Area] mL/min/{1.73_m2} Normal >60 [facility] Comment on above: Order Comment: No: D o not add to previous draw Performed By: #### 1 0070, 40627, 26021, 39301, 56271, 94039 #### [facility] [address] [place] [address], [place] Glucose [Mass/Vol] 97 mg/dL Normal 70-100 [facility] Comment on above: Order Comment: No: D o not add to previous draw Performed By: #### 1 0070, 95499, 41094, 29727, 94001, 41927 #### [facility] [address] [place] [address], [place] Potassium [Moles/Vol] 3.2 mmol/L Low 3.5-5.1 [facility] Comment on above: Order Comment: No: D o not add to previous draw Performed By: #### 1 0070, 05449, 72731, 52719, 30874, 58444 #### [facility] [address] [place] [address], [place] Sodium [Moles/Vol] 140 mmol/L Normal 136-145 [facility] Comment on above: Order Comment: No: D o not add to previous draw Performed By: #### 1 0070, 61410, 16901, 73619, 93549, 65226 #### [facility] [address] Urea nitrogen [Mass/Vol] 15 mg/dL Normal 7-25 [facility] Comment on above: Order Comment: No: D o not add to previous draw Performed By: #### 1 0070, 34015, 31814, 11428, 94116, 55532 #### [facility] [address] CBC W/DIFFon 03-31-2020 ABS BASOPHILS 0.0 10*3/uL Normal 0.0-0.2 [facility] Comment on above: Order Comment: No: D o not add to previous draw Performed By: #### 1 0070, 70897, 31718, 10794, 27257, 09788 #### [facility] [address] ABS IMM GRANS 0.0 10*3/uL Normal 0.0-0.2 [facility] Comment on above: Order Comment: No: D o not add to previous draw Performed By: #### 1 0070, 40139, 66769, 06509, 46367, 07990 #### [facility] [address] ABS NEUTROPHILS 3.2 10*3/uL Normal 1.6-7.6 [facility] Comment on above: Order Comment: No: D o not add to previous draw Performed By: #### 1 0070, 09535, 37022, 62643, 35538, 74254 #### [facility] [address] [place] [address], [facility] Basophils/100 WBC (Bld) 0.2 % Normal 0.0-1.0 [facility] Comment on above: Order Comment: No: D o not add to previous draw Performed By: #### 1 0070, 46659, 33424, 88646, 93009, 03371 #### [facility] [address] [place] [address], [facility] Eosinophils (Bld) [#/Vol] 0.0 10*3/uL Normal 0.0-0.5 [facility] Comment on above: Order Comment: No: D o not add to previous draw Performed By: #### 1 0070, 00226, 60187, 03339, 28614, 57551 #### [facility] [address] [place] [address], [facility] Eosinophils/100 WBC (Bld) 0.4 % Normal 0.0-6.0 [facility] Comment on above: Order Comment: No: D o not add to previous draw Performed By: #### 1 0070, 94399, 45530, 61670, 51480, 98331 #### [facility] [address] Erythrocyte distribution width (RBC) [Ratio] 13.0 % Normal 11.5-15.0 [facility] Comment on above: Order Comment: No: D o not add to previous draw Performed By: #### 1 0070, 28112, 13203, 24096, 30205, 68815 #### [facility] [address] [place] [address], [facility] Hematocrit (Bld) [Volume fraction] 34.4 % Low 36.0-45.0 [facility] Comment on above: Order Comment: No: D o not add to previous draw Performed By: #### 1 0070, 51011, 97208, 23524, 12525, 22601 #### [facility] [address] [place] [address], [facility] Hemoglobin (Bld) [Mass/Vol] 10.8 g/dL Low 12.0-15.0 [facility] Comment on above: Order Comment: No: D o not add to previous draw Performed By: #### 1 0070, 88988, 20098, 83855, 66620, 32541 #### [facility] [address] [place] [address], [facility] IMMATURE GRANS 0.4 % Normal 0.0-1.0 [facility] Comment on above: Order Comment: No: D o not add to previous draw Performed By: #### 1 0070, 51257, 29542, 30385, 61538, 33903 #### [facility] [address] [place] [address], [facility] Lymphocytes (Bld) [#/Vol] 1.2 10*3/uL Normal 1.2-4.0 [facility] Comment on above: Order Comment: No: D o not add to previous draw Performed By: #### 1 0070, 75784, 95520, 66278, 25546, 76908 #### [facility] [address] [place] [address], [facility] Lymphocytes/100 WBC (Bld) 25.7 % Normal 20.0-45.0 [facility] Comment on above: Order Comment: No: D o not add to previous draw Performed By: #### 1 0070, 79648, 48966, 47350, 05177, 00971 #### [facility] [address] [place] [address], [facility] MCH (RBC) [Entitic mass] 27.5 pg Normal 27.0-33.0 [facility] Comment on above: Order Comment: No: D o not add to previous draw Performed By: #### 1 0070, 90494, 16743, 44538, 13469, 27627 #### [facility] [address] [place] [address], [facility] MCHC (RBC) [Mass/Vol] 31.4 g/dL Low 32.0-35.0 [facility] Comment on above: Order Comment: No: D o not add to previous draw Performed By: #### 1 0070, 64466, 82913, 62919, 50928, 43878 #### [facility] [address] [place] [address], [facility] MCV (RBC) [Entitic vol] 87.5 fL Normal 82.0-98.0 [facility] Comment on above: Order Comment: No: D o not add to previous draw Performed By: #### 1 0070, 14843, 32496, 42443, 24914, 18730 #### [facility] [address] [place] [address], [facility] Monocytes (Bld) [#/Vol] 0.3 10*3/uL Normal 0.1-1.0 [facility] Comment on above: Order Comment: No: D o not add to previous draw Performed By: #### 1 0070, 24357, 63879, 92909, 98043, 65420 #### [facility] [address] [facility] [place] [address], [facility] MONOS 6.2 % Normal 5.0-12.0 [facility] Comment on above: Order Comment: No: D o not add to previous draw Performed By: #### 1 0070, 64152, 37990, 67945, 66545, 62871 #### [facility] [address] [facility] [place] [address], [facility] Neutrophils/100 WBC (Bld) 67.1 % Normal 40.0-72.0 [facility] Comment on above: Order Comment: No: D o not add to previous draw Performed By: #### 1 0070, 77656, 46140, 55434, 90741, 66797 #### [facility] [address] [place] [id number], [facility] Nucleated RBC/100 WBC (Bld) [Ratio] 0 % Normal 0-0 [facility] Comment on above: Order Comment: No: D o not add to previous draw Performed By: #### 1 0070, 24526, 73736, 27115, 26253, 61846 #### [facility] [address] [place] [address], [facility] PLAT CNT 210 10*3/uL Normal 150-400 [facility] Comment on above: Order Comment: No: D o not add to previous draw Performed By: #### 1 0070, 25917, 47177, 02705, 42261, 04062 #### [facility] [address] [facility] [place] [address], [facility] RBC (Bld) [#/Vol] 3.93 10*6/uL Normal 3.80-5.00 [facility] Comment on above: Order Comment: No: D o not add to previous draw Performed By: #### 1 0070, 64248, 34927, 17625, 74919, 56073 #### [facility] [address] [place] [address], [facility] WBC (Bld) [#/Vol] 4.71 10*3/uL Normal 4.00-10.60 [facility] Comment on above: Order Comment: No: D o not add to previous draw Performed By: #### 1 0070, 17424, 04457, 24768, 08426, 41957 #### [facility] [address] [facility] [address] Cardiovascular Lab Reporton 03-31-2020 Cardiovascular Lab Report [facility] Patient Name: Paulie [facility] S MR #: [id number] Department of Physician: Rebecca Weaver M.D. Medicine Service Date: 03/31/2020 Division of Birthdate: 1965 Cardiology Room #: 3AB 869153 Adult Cardiovascular Services [place] [address] Cardiovascular Laboratory Report INDICATIONS FOR PACEMAKER PLACEMENT: [...] silk suture. They were connected to a [employer]Tankron[employer]Kentaura Edora dual-chamber pacing system. This was placed [...] Weaver M.D. Date Trans: 03/31/2020 03:35 P/mmo [id number] cc: Luis Armando Hines M.D. Heart Failure/ Transplant Mailstop [address] [place] [address] Normal [facility] MAGNESIUM BLOODon 03-31-2020 Magnesium [Mass/Vol] 1.8 mg/dL Low 1.9-2.7 [facility] Comment on above: Order Comment: No: D o not add to previous draw Performed By: #### 1 0070, 89812, 28608, 72214, 64304, 70200 #### [facility] [address] PHOSPHORUS BLOODon 0 Phosphate [Mass/Vol] 2.7 mg/dL Normal 2.5-5.0 [facility] Comment on above: Order Comment: No: D o not add to previous draw Performed By: #### 1 0070, 56555, 68813, 41862, 88306, 89067 #### [facility] [address] PROTHROMBIN TIMEon 0 INR Coag (PPP) [Relative time] 1.11 {INR} Normal 0.91-1.16 [facility] Comment on above: Order Comment: [...] CHEST 1995;[id number]. Performed By: #### 1 0070, 87746, 21485, 68130, 73063, 88481 #### [facility] [address] [facility]. [address] PT Coag (PPP) [Time] 14.3 s Normal 12.3-14.8 [facility] Comment on above: Order Comment: No: D o not add to previous draw Result Comment: ALL RESULTS MUST BE INTERPRETED WITH RESPECT TO BLOOD DRAWING ARTIFACT OR DILUTION ERROR OF ANTICOAGULANT AT THE TIME OF SAMPLING. Performed By: #### 1 0070, 57215, 35542, 84873, 17093, 77320 #### [facility] [address] [facility] *SARS-CoV-2 COVID-19on 03-30 [id number] Not Detected Normal Not Detected [facility] Comment on above: Order Comment: No: D o not add to previous draw Performed By: #### 1 0070, 04740, 12948, 23632, 83250, 32471 #### [facility] [address] APTTon 03-30-2020 aPTT Coag (Bld) [Time] 24.9 s Low 25.0-35.0 [facility] e [facility] Comment on above: Order Comment: [...] THIS PURPOSE. Performed By: #### 5 7307, 90012 #### [facility] [address] [place] [address], [facility] BASIC METABOLIC PANELon 06- Calcium [Mass/Vol] 8.9 mg/dL Normal 8.6-10.3 [facility] Comment on above: Order Comment: No: D o not add to previous draw Performed By: #### 1 0070, 02621, 50403, 41265, 08737, 34414 #### [facility] [address] [place] [address], [facility] Chloride [Moles/Vol] 110 mmol/L High 98-107 [facility] Comment on above: Order Comment: No: D o not add to previous draw Performed By: #### 1 0070, 14934, 58906, 37910, 93427, 32174 #### [facility] [address] [place] [address], [facility] CO2 [Moles/Vol] 26 mmol/L Normal 21-31 [facility] Comment on above: Order Comment: No: D o not add to previous draw Performed By: #### 1 0070, 21624, 36743, 08456, 98769, 34386 #### [facility] [address] [place] [address], [facility] Creatinine [Mass/Vol] 0.86 mg/dL Normal 0.60-1.20 [facility] Comment on above: Order Comment: No: D o not add to previous draw Performed By: #### 1 0070, 30113, 86776, 40769, 34733, 54774 #### [facility] [address] [place] [address], [facility] GFR/1.73 sq M predicted among blacks MDRD (S/P/Bld) [Vol rate/Area] mL/min/{1.73_m2} Normal >60 [facility] Comment on above: Order Comment: No: D o not add to previous draw Performed By: #### 1 0070, 17454, 99268, 99595, 52781, 37986 #### [facility] [address] [place] [address], [place] GFR/1.73 sq M predicted among non-blacks MDRD (S/P/Bld) [Vol rate/Area] mL/min/{1.73_m2} Normal >60 [facility] Comment on above: Order Comment: No: D o not add to previous draw Performed By: #### 1 0070, 12175, 09815, 79295, 26868, 33417 #### [facility] [address] [place] [address], [place] Glucose [Mass/Vol] 119 mg/dL High 70-100 [facility] Comment on above: Order Comment: No: D o not add to previous draw Performed By: #### 1 0070, 15054, 92363, 85393, 04918, 41473 #### [facility] [facility] [address] [place] [address], [place] Potassium [Moles/Vol] 3.5 mmol/L Normal 3.5-5.1 [facility] Comment on above: Order Comment: No: D o not add to previous draw Performed By: #### 1 0070, 77839, 96519, 25518, 32809, 66479 #### [facility] [address] [place] [address], [place] Sodium [Moles/Vol] 142 mmol/L Normal 136-145 [facility] Comment on above: Order Comment: No: D o not add to previous draw Performed By: #### 1 0070, 00320, 74805, 72558, 77327, 22150 #### [facility] [address] [place] [address], [place] Urea nitrogen [Mass/Vol] 13 mg/dL Normal 7-25 [facility] Comment on above: Order Comment: No: D o not add to previous draw Performed By: #### 1 0070, 48878, 15932, 43094, 41468, 76073 #### [facility] [address] CBC W/DIFFon 03-30-2020 ABS BASOPHILS 0.0 10*3/uL Normal 0.0-0.2 [facility] Comment on above: Performed By: #### 5 0103 #### [facility] [address] ABS IMM GRANS 0.0 10*3/uL Normal 0.0-0.2 [facility] Comment on above: Performed By: #### 5 0103 #### [facility] [address] ABS NEUTROPHILS 5.7 10*3/uL Normal 1.6-7.6 [facility] Comment on above: Performed By: #### 5 0103 #### [facility] [address] Basophils/100 WBC (Bld) 0.0 % Normal 0.0-1.0 [facility] Comment on above: Performed By: #### 5 0103 #### [facility] [address] [place] [address], [facility] Eosinophils (Bld) [#/Vol] 0.0 10*3/uL Normal 0.0-0.5 [facility] Comment on above: Performed By: #### 5 0103 #### [facility] [address] [place] [address], [facility] Eosinophils/100 WBC (Bld) 0.0 % Normal 0.0-6.0 [facility] Comment on above: Performed By: #### 5 0103 #### [facility] [address] Erythrocyte distribution width (RBC) [Ratio] 12.9 % Normal 11.5-15.0 [facility] Comment on above: Performed By: #### 5 0103 #### [facility] [address] [facility] [address] Hematocrit (Bld) [Volume fraction] 36.1 % Normal 36.0-45.0 [facility] Comment on above: Performed By: #### 0103 #### [facility] [address] Hemoglobin (Bld) [Mass/Vol] 11.5 g/dL Low 12.0-15.0 [facility] Comment on above: Performed By: #### 3 #### [facility] [address] IMMATURE GRANS 0.5 % Normal 0.0-1.0 [facility] Comment on above: Performed By: #### 3 #### [facility] [address] Lymphocytes (Bld) [#/Vol] 0.6 10*3/uL Low 1.2-4.0 [facility] Comment on above: Performed By: #### 5 3 #### [facility] [address] Lymphocytes/100 WBC (Bld) 9.3 % Low 20.0-45.0 [facility] Comment on above: Performed By: #### 5 0103 #### [facility] [address] [place] [address], [facility] MCH (RBC) [Entitic mass] 27.4 pg Normal 27.0-33.0 [facility] Comment on above: Performed By: #### 3 #### [facility] [address] [place] [address], [place] MCHC (RBC) [Mass/Vol] 31.9 g/dL Low 32.0-35.0 [facility] Comment on above: Performed By: #### 5 0103 #### [facility] [address] [place] [address], [facility] MCV (RBC) [Entitic vol] 86.0 fL Normal 82.0-98.0 [facility] Comment on above: Performed By: #### 5 0103 #### [facility] [address] [place] [address], [facility] Monocytes (Bld) [#/Vol] 0.2 10*3/uL Normal 0.1-1.0 [facility] Comment on above: Performed By: #### 5 0103 #### [facility] [address] [place] [address], [facility] MONOS 2.5 % Low 5.0-12.0 [facility] Comment on above: Performed By: #### 5 0103 #### [facility] [address] [place] [address], [facility] Neutrophils/100 WBC (Bld) 87.7 % High 40.0-72.0 [facility] Comment on above: Performed By: #### 5 3 #### [facility] [address] [place] [address], [facility] Nucleated RBC/100 WBC (Bld) [Ratio] 0 % Normal 0-0 [facility] Comment on above: Performed By: #### 5 3 #### [facility] [address] [place] [address], [facility] PLAT CNT 261 10*3/uL Normal 150-400 [facility] Comment on above: Performed By: #### 5 3 #### [facility] [address] [facility] [place] [address], [facility] RBC (Bld) [#/Vol] 4.20 10*6/uL Normal 3.80-5.00 [facility] Comment on above: Performed By: #### 5 0103 #### [facility] [address] WBC (Bld) [#/Vol] 6.47 10*3/uL Normal 4.00-10.60 [facility] Comment on above: Performed By: #### 5 0103 #### [facility] [address] FREE T4on 03-30-2020 Free T4 [Mass/Vol] 1.48 ng/dL Normal 0.71-1.85 [facility] Comment on above: Performed By: #### 1 0070, 75849, 88953, 02538, 74820, 67441 #### [facility] [address] MAGNESIUM BLOODon 03-30-2020 Magnesium [Mass/Vol] 2.0 mg/dL Normal 1.9-2.7 [facility] Comment on above: Order Comment: No: D o not add to previous draw Performed By: #### 1 0070, 28179, 07434, 55888, 77239, 17706 #### [facility] [address] PHOSPHORUS BLOODon 0 Phosphate [Mass/Vol] 2.8 mg/dL Normal 2.5-5.0 [facility] Comment on above: Order Comment: No: D o not add to previous draw Performed By: #### 1 0070, 04845, 05569, 59516, 83494, 65348 #### [facility] [address] PROTHROMBIN TIMEon 0 INR Coag (PPP) [Relative time] 1.21 {INR} High 0.91-1.16 [facility] Comment on above: Order Comment: [...] CHEST 1995;[id number]. Performed By: #### 5 7307, 62205 #### [facility] 3000 [facility]. [address] PT Coag (PPP) [Time] 15.4 s High 12.3-14.8 [facility] Comment on above: Order Comment: No: D o not add to previous draw Result Comment: ALL RESULTS MUST BE INTERPRETED WITH RESPECT TO BLOOD DRAWING ARTIFACT OR DILUTION ERROR OF ANTICOAGULANT AT THE TIME OF SAMPLING. Performed By: #### 5 7307, 24650 #### [facility] 3000 [facility] [address] TROPONIN-Ion 03-30-2020 Troponin I.cardiac [Mass/Vol] 0.02 ng/mL Normal 0.00-0.04 [facility] Comment on above: Order Comment: No: D o not add to previous draw Result Comment: REFE RENCE RANGES: 0.00 - 0.04 ng/ml NORMAL 0.05 - 0.50 ng/ml INDETERMINATE > 0.50 ng/ml CONSISTENT WITH AN M.I. Performed By: #### 1 0070, 28904, 03820, 51163, 05977, 15195 #### [facility] [address] Troponin I.cardiac [Mass/Vol] 0.04 ng/mL Normal 0.00-0.04 [facility] Comment on above: Order Comment: No: D o not add to previous draw Result Comment: REFE RENCE RANGES: 0.00 - 0.04 ng/ml NORMAL 0.05 - 0.50 ng/ml INDETERMINATE > 0.50 ng/ml CONSISTENT WITH AN M.I. Performed By: #### 3 5200 #### [facility] [address] [place] [address], [facility] Troponin I.cardiac [Mass/Vol] 0.04 ng/mL Normal 0.00-0.04 [facility] Comment on above: Order Comment: No: D o not add to previous draw Result Comment: REFE RENCE RANGES: 0.00 - 0.04 ng/ml NORMAL 0.05 - 0.50 ng/ml INDETERMINATE > 0.50 ng/ml CONSISTENT WITH AN M.I. Performed By: #### 1 0070, 66917, 92258, 66204, 92738, 66042 #### [facility] [address] TSH3 WITH REFLEX FT4on 03-30 TSH 3RD GENERATION 0.02 uIU/mL Low 0.34-5.60 [facility] Comment on above: Performed By: #### 1 0070, 03062, 35918, 63148, 93824, 84427 #### [facility] [address] [place], [place] [id number] [place] [address] Vital Signs Date Time Vital Sign Value Performing Clinician Facility 05-05-2025 14:00-0400 Body height 152.4 cm Naseem Carter COMPENSATION AND BENEFITS ANALYST Work Phone: [facility] 05-05-2025 14:00-0400 Body mass index (BMI) [Ratio] 19.14 kg/m2 Naseem Carter NP Work Phone: [facility] 05-05-2025 14:00-0400 Body weight 44.45 kg Naseem Carter NP Work Phone: [facility] 02-17-2025 13:40-0400 Body height 152.4 cm Naseem Carter COMPENSATION AND BENEFITS ANALYST Work Phone: [facility] 02-17-2025 13:40-0400 Body mass index (BMI) [Ratio] 20.31 kg/m2 Naseem Carter COMPENSATION AND BENEFITS ANALYST Work Phone: [facility] 02-17-2025 13:40-0400 Body weight 47.17 kg Naseem Carter COMPENSATION AND BENEFITS ANALYST Work Phone: [facility] 12-04-2024 07:30-0500 Body temperature 97.8 [degF] Tony Amaya MD Work Phone: [facility] 12-04-2024 07:30-0500 Diastolic blood pressure 77 mm[Hg] Tony Amaya MD Work Phone: [facility] 12-04-2024 07:30-0500 Heart rate 88 /min Tony Amaya MD Work Phone: [facility] 12-04-2024 07:30-0500 Respiratory rate 18 /min Tony Amaya MD Work Phone: [facility] 12-04-2024 07:30-0500 SaO2% (BldA) [Mass fraction] 97 % Tony Amaya MD Work Phone: [facility] 12-04-2024 07:30-0500 Systolic blood pressure 120 mm[Hg] Tony Amaya MD Work Phone: [facility] 12-02-2024 14:18-0500 Body height 152.4 cm Tony Amaya MD Work Phone: [facility] 12-02-2024 08:53-0500 Body weight 44.62 kg Tony Amaya MD Work Phone: [facility] 06-13-2024 12:13-0400 Body height 152.3 cm Zoila Monae MD Work Phone: [facility] 06-13-2024 12:13-0400 Body mass index (BMI) [Ratio] 19.98 kg/m2 Zoila Monae MD Work Phone: [facility] 06-13-2024 12:13-0400 Body weight 46.35 kg Zoila Monae MD Work Phone: [facility] 06-13-2024 12:13-0400 Diastolic blood pressure 77 mm[Hg] Zoila Monae MD Work Phone: [facility] 06-13-2024 12:13-0400 Heart rate 74 /min Zoila Monae MD Work Phone: [facility] 06-13-2024 12:13-0400 Systolic blood pressure 107 mm[Hg] Zoila Monae MD Work Phone: [facility] 03-06-2024 13:46-0400 Body height 153.5 cm Zoila Monae MD Work Phone: [facility] 03-06-2024 13:46-0400 Body mass index (BMI) [Ratio] 19.1 kg/m2 Zoila Monae MD Work Phone: [facility] 03-06-2024 13:46-0400 Body temperature 97.2 [degF] Zoila Monae MD Work Phone: [facility] 03-06-2024 13:46-0400 Body weight 45 kg Zoila Monae MD Work Phone: [facility] 03-06-2024 13:46-0400 Diastolic blood pressure 68 mm[Hg] Zoila Monae MD Work Phone: [facility] 03-06-2024 13:46-0400 Heart rate 106 /min Zoila Monae MD Work Phone: [facility] 03-06-2024 13:46-0400 Systolic blood pressure 101 mm[Hg] Zoila Monae MD Work Phone: [facility] 08-12-2022 15:32-0500 Body temperature 98.1 [degF] MD Tony Amaya Work Phone: [facility] 08-12-2022 15:32-0500 Diastolic blood pressure 69 mm[Hg] MD Tony Amaya Work Phone: [facility] 08-12-2022 15:32-0500 Heart rate 78 /min MD Tony Amaya Work Phone: [facility] 08-12-2022 15:32-0500 Respiratory rate 16 /min MD Tony Amaya Work Phone: [facility] 08-12-2022 15:32-0500 SaO2% (BldA) [Mass fraction] 94 % MD Tony Amaya Work Phone: [facility] 08-12-2022 15:32-0500 Systolic blood pressure 129 mm[Hg] MD Tony Amaya Work Phone: [facility] 08-12-2022 11:00-0500 Inhaled oxygen flow rate 3 L/min MD Tony Amaya Work Phone: [facility] 08-11-2022 12:39-0500 Body height 152.4 cm MD Tony Amaya Work Phone: [facility] 08-11-2022 06:00-0500 Body weight 44.9 kg MD Tony Amaya Work Phone: [facility] 08-10-2022 15:03-0500 Body mass index (BMI) [Ratio] 19.1 kg/m2 MD Tony Amaya Work Phone: [facility] 08-03-2022 14:27-0400 Body weight 0 kg MD Tony Amaya Work Phone: [facility] Encounters Encounter Date Encounter Type Care Provider Facility Start: 07-15-2025 Emergency department patient visit RULA RUIZ [facility] Start: 07-15-2025 End: 07-17-2025 Evaluation and management of inpatient JESSICA ZHAOABIMBOLA [facility] Start: 05-21-2025 End: 05-21-2025 Refill Naseem Carter COMPENSATION AND BENEFITS ANALYST Work Phone: [facility] Comment on above: Post-op pain (Primar y Dx) Start: 05-13-2025 ambulatory Tony Amaya Facility: [facility] Start: 05-05-2025 End: 05-05-2025 Bamboo flowsheet Naseem Carter COMPENSATION AND BENEFITS ANALYST Work Phone: [facility] Start: 05-05-2025 End: 05-05-2025 Bamboo flowsheet Naseem Carter COMPENSATION AND BENEFITS ANALYST Work Phone: [facility] Start: 05-05-2025 End: 05-05-2025 Patient encounter procedure Naseem Carter COMPENSATION AND BENEFITS ANALYST Work Phone: [facility] Comment on above: Pre-op evaluation (P rimary Dx) Start: 05-05-2025 End: 05-05-2025 Preprocedural examination done Naseem Carter COMPENSATION AND BENEFITS ANALYST Work Phone: [facility] Work Phone: Start: 05-05-2025 End: 05-05-2025 ambulatory NASEEM CARTER Not Available Start: 03-28-2025 End: 03-28-2025 ambulatory DARRYL [facility] Start: 02-17-2025 End: 02-17-2025 Bamboo flowsheet Naseem Carter COMPENSATION AND BENEFITS ANALYST Work Phone: [facility] Start: 02-17-2025 End: 02-17-2025 Bamboo flowsheet Naseem Carter COMPENSATION AND BENEFITS ANALYST Work Phone: [facility] Start: 02-17-2025 End: 02-17-2025 ambulatory NASEEM CARTER Not Available Start: 02-17-2025 End: 02-17-2025 Patient encounter procedure Naseem Carter COMPENSATION AND BENEFITS ANALYST Work Phone: [facility] Comment on above: Preop examination (P rimary Dx) Start: 02-17-2025 End: 02-17-2025 Preprocedural examination done Naseem Carter COMPENSATION AND BENEFITS ANALYST Work Phone: [facility] Work Phone: Start: [...] / Non-visit Perez Amaya MD Work Phone: [facility] Work Phone: Start: 12-01-2024 End: 12-04-2024 Evaluation and management of inpatient Tony Amaya MD Work Phone: [facility]-[address] [place] [address] Work Phone: Start: 12-01-2024 Registered Recurring Tony berry MD Work Phone: [facility] Start: 11-29-2024 End: 11-29-2024 ambulatory DARRYL GOODE [facility] Start: 11-28-2024 End: 11-28-2024 Patient encounter procedure Monika Vargas DO Work Phone: [facility] Comment on above: Numbness and tinglin g in left hand Start: 11-28-2024 End: 11-28-2024 ambulatory FREDDEVEN SVETLANA Not Available Start: 11-26-2024 End: 11-26-2024 ambulatory Tony Amaya MD Work Phone: [facility] Work Phone: Start: 11-26-2024 End: 11-26-2024 Departed Referred Tony Amaya MD Work Phone: [facility] Start: 11-14-2024 Registered Recurring Tony berry MD Work Phone: [facility] Start: 11-11-2024 End: 11-11-2024 Bamboo flowsheet Zulema Smith Apllukas COMPENSATION AND BENEFITS ANALYST Work Phone: [facility] Start: 11-11-2024 End: 11-11-2024 Bamboo flowsheet Zulema Smith Apllukas COMPENSATION AND BENEFITS ANALYST Work Phone: [facility] Start: 11-11-2024 End: 11-11-2024 ambulatory ZULEMA Smith APLING Not Available Start: 11-11-2024 End: 11-11-2024 Office outpatient visit 15 minutes Zulema Mackay COMPENSATION AND BENEFITS ANALYST Work Phone: [facility] Comment on [...] End: 10-07-2024 Bamboo flowsheet Zulema Smith Apling COMPENSATION AND BENEFITS ANALYST Work Phone: [facility] Start: 10-07-2024 End: 10-07-2024 Bamboo flowsheet Zulema B Apling COMPENSATION AND BENEFITS ANALYST Work Phone: [facility] Start: 10-07-2024 End: 10-07-2024 ambulatory ZULEMA Smith APLING Not Available Start: 10-07-2024 End: 10-07-2024 Office outpatient visit 10 minutes Zulema Nicholsing COMPENSATION AND BENEFITS ANALYST Work Phone: [facility] Comment on above: Closed nondisplaced fracture of base of fifth metacarpal bone of left hand with routine healing, subsequent encounter (Primary Dx); Closed nondisplaced fracture of right patella with routine healing, unspecified fracture morphology, subsequent encounter Start: 09-16-2024 End: 09-16-2024 Bamboo flowsheet Zulema B Apling COMPENSATION AND BENEFITS ANALYST Work Phone: [facility] Start: 09-16-2024 End: 09-16-2024 Bamboo flowsheet Zulema B Apling COMPENSATION AND BENEFITS ANALYST Work Phone: [facility] Start: 09-16-2024 End: 09-16-2024 Postop follow up visit related to original px Zulema B Apling COMPENSATION AND BENEFITS ANALYST Work Phone: [facility] Comment on above: Closed nondisplaced fracture of base of fifth metacarpal bone of left hand with routine healing, subsequent encounter (Primary Dx); Closed nondisplaced fracture of right patella with routine healing, unspecified fracture morphology, subsequent encounter Start: 09-16-2024 End: 09-16-2024 ambulatory ZULEMA B APLING Not Available Start: 08-19-2024 End: 08-19-2024 Bamboo flowsheet Zulema B Apling COMPENSATION AND BENEFITS ANALYST Work Phone: [facility] Start: 08-19-2024 End: 08-19-2024 Bamboo flowsheet Zulema B Apling COMPENSATION AND BENEFITS ANALYST Work Phone: [facility] Start: 08-19-2024 End: 08-19-2024 ambulatory ZULEMA B APLING Not Available Start: 08-19-2024 End: 08-19-2024 Postop follow up visit related to original px Zulema B Apling COMPENSATION AND BENEFITS ANALYST Work Phone: [facility] Comment on above: Right elbow pain (Pr imary Dx); Closed nondisplaced fracture of base of fifth metacarpal bone of left hand with routine healing, subsequent encounter Start: 08-07-2024 End: 08-07-2024 Bamboo flowsheet Zulema Smith Apling COMPENSATION AND BENEFITS ANALYST Work Phone: [facility] Start: 08-07-2024 End: 08-07-2024 Bamboo flowsheet Zulema B Apling COMPENSATION AND BENEFITS ANALYST Work Phone: [facility] Start: 08-07-2024 End: 08-07-2024 Postop follow up visit related to original px Zulema B Apling COMPENSATION AND BENEFITS ANALYST Work Phone: [facility] Comment on above: Closed nondisplaced fracture of right patella with routine healing, unspecified fracture morphology, subsequent encounter (Primary Dx); Right elbow pain Start: 08-07-2024 End: 08-07-2024 ambulatory ZULEMA B APLING Not Available Start: 07-22-2024 End: 07-22-2024 Bamboo flowsheet Zulema B Apling COMPENSATION AND BENEFITS ANALYST Work Phone: [facility] Start: 07-22-2024 End: 07-22-2024 Bamboo flowsheet Zulema B Apling COMPENSATION AND BENEFITS ANALYST Work Phone: [facility] Start: 07-22-2024 End: 07-22-2024 Office outpatient visit 15 minutes Zulema B Apling COMPENSATION AND BENEFITS ANALYST Work Phone: [facility] Comment on above: Left hand pain (Prim isamar Dx); Contusion of dorsum of left hand; Closed nondisplaced fracture of base of fifth metacarpal bone of left hand with routine healing, subsequent encounter Start: 07-22-2024 End: 07-22-2024 ambulatory ZULEMA B APLING Not Available Start: 07-10-2024 End: 07-10-2024 Bamboo flowsheet Zulema B Apling COMPENSATION AND BENEFITS ANALYST Work Phone: [facility] Start: 07-10-2024 End: 07-10-2024 Bamboo flowsheet Zulema B Apling COMPENSATION AND BENEFITS ANALYST Work Phone: [facility] Start: 07-10-2024 End: 07-10-2024 Office outpatient visit 15 minutes Zulema B Apling COMPENSATION AND BENEFITS ANALYST Work Phone: [facility] Comment on above: Closed nondisplaced fracture of right patella, unspecified fracture morphology, initial encounter (Primary Dx); Right knee pain, unspecified chronicity Start: 07-10-2024 End: 07-10-2024 ambulatory ZULEMA B APLING Not Available Start: 06-24-2024 End: 06-24-2024 Bamboo flowsheet Zulema B Apling COMPENSATION AND BENEFITS ANALYST Work Phone: [facility] Start: 06-24-2024 End: 06-24-2024 Bamboo flowsheet Zulema B Apling COMPENSATION AND BENEFITS ANALYST Work Phone: [facility] Start: 06-24-2024 End: 06-24-2024 Office outpatient visit 25 minutes Zulema B Apling COMPENSATION AND BENEFITS ANALYST Work Phone: [facility] Comment on above: Left hand pain (Prim isamar Dx); Right knee pain, unspecified chronicity; Contusion of right knee, initial encounter; Contusion of dorsum of left hand; Left shoulder pain, unspecified chronicity; Arthritis of left acromioclavicular joint; Glenohumeral arthritis, left Start: 06-24-2024 End: 06-24-2024 ambulatory ZULEMA Smith APLING Not Available Start: 06-13-2024 End: 06-13-2024 ambulatory ZOILA MONAE Facility:[facility] Start: 06-13-2024 End: 06-13-2024 Patient encounter procedure Zoila Monae MD Work Phone: [facility] Comment on above: Transient neurologic al symptoms (Primary Dx) Start: 06-11-2024 ambulatory ZOILA MONAE [facility] Everet[facility] ty:[facility] Start: 06-11-2024 End: 06-11-2024 Subsequent hospital visit by physician Eeg [facility] Work Phone: [facility] Comment on above: Memory deficit [R41. 3] Start: 06-04-2024 End: 06-04-2024 Orders Only Zoila Monae MD Work Phone: [facility] Comment on above: Memory deficit (Prim isamar Dx); Auditory hallucinations; Mentally challenged Start: 05-28-2024 End: 09-19-2024 Telephone encounter Zoila Monae MD Work Phone: [facility] Start: 03-06-2024 End: 03-06-2024 ambulatory TONY AMAYA Facility:[facility] Start: 03-06-2024 End: 03-06-2024 Patient encounter procedure Zoila Monae MD Work Phone: [facility] Comment on above: Memory deficit (Prim isamar Dx); Auditory hallucinations; Mentally challenged Start: 01-03-2023 End: 01-07-2023 Evaluation and management of inpatient DR TONY AMAYA . Facility: Start: 11-01-2022 End: 11-02-[address] TONY AMAYA . Facility:[facility] Start: 09-30-2022 End: 10-01-[address] ROSALINA RESENDIZ Facility:[facility] Start: 09-02-2022 End: 09-02-2022 ambulatory MD Tony Amaya Work Phone: [facility] Work Phone: Start: 09-02-2022 End: 09-02-2022 Patient encounter procedure MD Tony Amaya Work Phone: [facility] [place] Start: 08-25-2022 End: 08-25-[address] ROSALINA RESENDIZ Facility:[facility] Start: 08-10-2022 End: 08-12-2022 Admission to same day surgery center MD Tony Amaya Work Phone: [facility] Start: 08-10-2022 End: 08-12-2022 ambulatory MD Tony Amaya Work Phone: [facility] Work Phone: Start: 08-08-2022 End: 08-08-2022 ambulatory MD Tony Amaya Work Phone: [facility] Work Phone: Start: 08-08-2022 End: 08-08-2022 Departed Referred MD Tony Amaya Work Phone: [facility] Start: 08-05-2022 End: 08-05-2022 ambulatory MD Tony Amaya Work Phone: [facility] Work Phone: Start: 08-05-2022 End: 08-05-2022 Patient encounter procedure MD Tony Amaya Work Phone: [id number] Start: 07-30-2022 End: 07-30-[address] ROSALINA RESENDIZ Facility:[facility] Start: 07-04-2022 End: 07-06-[address] TONY AMAAY . Facility:[facility] Start: 07-04-2022 End: 07-04-[address] ALBERTO FERRO Facility:[facility] Start: 06-29-2022 Encounter for preprocedural laboratory examination NADEGE GARDNER . [facility] Start: 06-27-2022 End: 06-28-2022 ambulatory NADEGE GARDNER . Facility:[facility] Start: 06-27-2022 End: 06-28-2022 Encounter for preprocedural laboratory examination NADEGE GRADNER . Facility:[facility] Start: 06-22-2022 End: 06-23-2022 ambulatory [...] Evaluation and management of inpatient MICHAELAdolfo RODRIGUEZD Facility:[facility] Procedures Date Procedure Procedure Detail Performing Clinician Start: 11-28-2024 End: 11-28-2024 Needle emg ea extremty w/paraspinl area complete Monika Vargas DO Work Phone: Start: 11-26-2024 Urine culture Tony Amaya MD Work Phone: Start: 10-07-2024 Radex hand minimum 3 views Zulema hoffmann COMPENSATION AND BENEFITS ANALYST Work Phone: Start: 09-16-2024 Radex hand minimum 3 views Zulema hoffmann COMPENSATION AND BENEFITS ANALYST Work Phone: Start: 09-16-2024 Radiologic examination knee 3 views Zulema Mackay COMPENSATION AND BENEFITS ANALYST Work Phone: Start: 08-19-2024 Radex hand minimum 3 views Zulema hoffmann COMPENSATION AND BENEFITS ANALYST Work Phone: Start: 08-07-2024 End: 08-07-2024 Radex elbow 2 views Zulema Mackay COMPENSATION AND BENEFITS ANALYST Work Phone: Start: 07-22-2024 Radex hand minimum 3 views Zulema Bailey g COMPENSATION AND BENEFITS ANALYST Work Phone: Start: 06-24-2024 Radiologic examination knee 3 views Zulema Mackay COMPENSATION AND BENEFITS ANALYST Work Phone: Start: 06-11-2024 Electroencephalogram w/rec awake&drowsy Zoila Monae MD Work Phone: Start: 06-11-2024 Electroencephalogram w/rec awake&drowsy [facility] Start: 09-02-2022 Plain chest X-ray MD [...] RSV Vaccine (1 - 1-dose 75+ series) [facility] Start: 02-19-2027 Diabetes Screening Diabetes Screening [facility] Start: 06-04-2025 End: 06-04-2025 Patient encounter procedure 06/04/2025 1:00 PM EDT Office Visit [facility] [address] [facility] [address] [place] [address] Jr. Luis Armando Teague DO [address] [facility] [address] [place] [address] [facility] Start: 05-05-2025 End: 05-05-2025 Patient encounter procedure 05/05/2025 2:00 PM EDT Office [facility] [address] [address] Naseem Carter, KALPANA [address] [place], [place] [id number] Arrived [facility] Comment on above: Arrived Start: 03-11-2025 End: 03-11-2025 Patient encounter procedure 03/11/2025 2:00 PM EDT Office Visit [facility] [address] [place] [address] Jeter, Chuy J, PA [address] [place] [address] [facility] Start: 02-17-2025 End: 02-17-2025 Patient encounter procedure 02/17/2025 1:30 PM EDT Office Visit [facility] [address] [place] [phone] Naseem Carter, COMPENSATION AND BENEFITS ANALYST [address] [place], [place] [phone] [facility] Start: 02-10-2025 End: 02-10-2025 Patient encounter procedure 02/10/2025 11:00 AM EDT Office Visit [facility] [address] [place] [phone] Naseem Carter NP [address] [place] [address] [facility] Start: 12-04-2024 [facility] Start: 12-01-2024 Hospital admission [facility] Start: 12-01-2024 [facility] Start: 11-26-2024 Urine culture [facility] Start: 11-26-2024 Bacteria identified in Urine by Culture Urine Culture [facility] Start: 11-11-2024 End: 11-11-2024 Patient encounter procedure 11/11/2024 10:00 AM EST Office Visit [facility] [address] [facility] [address] [place] [address] Zulema Mackay NP [address] [facility] [address] [place] [address] [facility] Start: 11-08-2024 End: 11-08-2024 ambulatory 11/08/2024 12:00 PM EST Treatment [facility] [address] [place] [address] Zehra Bunch, OT [address] [place] [address] [facility] Start: 11-05-2024 End: 11-05-2024 ambulatory 11/05/2024 12:00 PM EST Treatment [facility] [address] [place] [address] Zehra Bunch, OT [address] [place] [address] [facility] Start: 11-01-2024 End: 11-01-2024 ambulatory 11/01/2024 1:00 PM EST Treatment [facility] [address] [place] [address] Zehra Bunch, OT [address] [place] [address] [facility] Start: 10-29-2024 End: 10-29-2024 ambulatory [facility] Comment on above: Arrived Start: 10-25-2024 End: 10-25-2024 ambulatory 10/25/2024 9:00 AM EST Treatment [facility] [address] [place] [address] Zehra Bunch, OT [address] [place] [address] [facility] Start: 10-22-2024 End: 10-22-2024 ambulatory 10/22/2024 1:00 PM EST Evaluation [facility] [address] [place] [address] Zehra Bunch, OT [address] [place] [address] Closed nondisplaced fracture of base of fifth metacarpal bone of left hand with routine healing, subsequent encounter [facility] Comment on above: Closed nondisplaced fracture of base of fifth metacarpal bone of left hand with routine healing, subsequent encounter Start: 10-11-2024 End: 10-11-2024 ambulatory 10/11/2024 1:30 PM EST Evaluation [facility] [address] [place] [address] Florina Degroot, OT [address] [place] [address] [facility] Start: 10-07-2024 End: 10-07-2024 Patient encounter procedure 10/07/2024 11:15 AM EST Office Visit [facility] [address] [place] [address] Zulema Mackay, COMPENSATION AND BENEFITS ANALYST [address] [place] [address] [facility] Start: 09-16-2024 End: 09-16-2024 Patient encounter procedure 09/16/2024 10:00 AM EST Office Visit [facility] [address] [place] [address] Zulema Mackay, COMPENSATION AND BENEFITS ANALYST [address] [place] [address] [facility] Start: 08-19-2024 End: 08-19-2024 Patient encounter procedure 08/19/2024 12:30 PM EST Office Visit [facility] [address] [place] [address] Zulema Mackay, COMPENSATION AND BENEFITS ANALYST [address] [place] [address] [facility] Start: 08-07-2024 End: 08-07-2024 [...] procedure 07/10/2024 12:15 PM EDT Office Visit [facility] [address] [place] [address] Zulema Mackay, COMPENSATION AND BENEFITS ANALYST [address] [place] [address] Arrived [facility] Comment on above: Arrived Start: 06-24-2024 End: 06-24-2024 Patient encounter procedure 06/24/2024 10:30 AM EDT Office Visit [facility] [address] [facility] [address] [place] [address] Zulema Mackay, COMPENSATION AND BENEFITS ANALYST [address] [facility] [address] [place] [address] Left hand pain (Primary Dx); Right knee pain, unspecified chronicity; Contusion of right knee, initial encounter; Contusion of dorsum of left hand; Left shoulder pain, unspecified chronicity; Arthritis of left acromioclavicular joint; Glenohumeral arthritis, left [facility] Comment on above: Left hand pain (Primary Dx); Right knee pain, unspecified chronicity; Contusion of right knee, initial encounter; Contusion of dorsum of left hand; Left shoulder pain, unspecified chronicity; Arthritis of left acromioclavicular joint; Glenohumeral arthritis, left Start: 06-13-2024 End: 06-13-2024 Patient encounter procedure 06/13/2024 12:30 PM EDT Office Visit Neurology [facility] [address] [place] [address] [place] [address] [place], [place] [phone] Return in about 3 months (around 06/06/2024) for with Dr. Monae. Neurology [facility] Comment on above: Return in about 3 months (around ) for with Dr. Monae. Start: 06-11-2024 End: 06-11-2024 Patient encounter procedure 06/11/2024 9:00 AM EDT Appointment [facility] [address] [address] Memory deficit [R41.3] [facility] Comment on above: Memory deficit [R41.3] Start: 06-02-2024 Covid-19 Vaccine ( season) Covid-19 Vaccine () [facility] Start: 06-02-2024 Covid-19 Vaccine () Covid-19 Vaccine () [facility] Start: 06-02-2024 Influenza vaccination [facility] Start: 03-29-2024 End: 03-29-2024 Patient encounter procedure 03/29/2024 11:45 AM EDT Office Visit Neurology [address] [place] [id number] Memory deficit [R41.3] Neurology Comment on above: Memory deficit [R41.3] Start: 10-02-2023 Behavioral Health Screening Behavioral Health Screening [facility] Start: 06-02-2023 Covid-19 Vaccine ( season) Covid-19 Vaccine ( season) [facility] Start: 08-12-2022 [facility] Start: 08-10-2022 Consultation [facility] Start: 08-10-2022 End: 08-10-2022 [facility] Start: 2014 Pneumococcal Vaccine: 50+ (1 of 1 - PCV) Pneumococcal Vaccine: 50+ (1 of 1 - PCV) [facility] Start: 2014 Shingrix Vaccine (1 of 2) Shingrix Vaccine (1 of 2) [facility] Start: 2009 Lipid panel Lipid Screening [facility] Start: 2009 Screening for malignant neoplasm of colon [facility] Start: 2004 Screening for malignant neoplasm of breast Mammogram Screening [facility] Start: 1994 Screening for malignant neoplasm of cervix HPV Testing [facility] Start: 1985 Screening for malignant neoplasm of cervix [facility] Start: 1983 Urine microalbumin profile DTaP,Tdap,Td Vaccine (1 - Tdap) [facility] Start: 1982 Anxiety Screening Anxiety Screening [facility] Start: 1982 Depression Screening Depression Screening [facility] Start: 1982 Hepatitis C screening Hepatitis C Screening [facility] Start: 1982 HIV screening HIV Screening [facility] Acid Fast Bacilli Cu lture & Smear Acid Fast Bacilli Culture & Smear [facility] Anaerobic microbial culture Anaerobic Culture [facility] Bacteria identified in Urine by Culture Urine Culture [facility] Chlamydia trachomati s [Presence] in Unspecified specimen by Organism specific culture [facility] Work Phone: Chlamydia trachomati s [Presence] in Unspecified specimen by Organism specific culture [facility] EEG EEG NEUROLOGY 12:00 AM EDT [facility] End: 03-06-2025 EPIL EEG ROUTINE EPIL EEG ROUTINE NEUROLOGY Routine Memory deficit Auditory hallucinations 1 Occurrences starting 03/06/2024 until 03/06/2025 [facility] Work Phone: Comment on above: 1 Occurrences starting 03/06/2024 until 03/06/2025 Fungal Culture Result 1 Fungal Culture Re sult 1 [facility] Fungus identified in Unspecified specimen by Culture [facility] Work Phone: Mycobacterium sp identified in Unspecified specimen by Organism specific culture [facility] Work Phone: Mycology Culture Mycology Culture [facility] Patient Education Bipolar disord er - Discharge instructions [facility] [place] Instructions Know your Meds [facility] Work Phone: Patient referral [facility] Work Phone: [facility] Payers Date Payer Category Payer Self-pay 2017 Medicaid [id number] 2017 Medicaid (Managed Care) [employer] Member Subscriber Plan / Payer (Effective 2017-Present) Name: Emigdio Apodaca Relation to Subscriber: Self Name: Emigdio Apodaca Payer ID: Not on file Group ID: Not on file Type: Not on file Address: [place] [id number] 1964 Unknown [id number] 2.16.840.1.267216.3.579.2. 647 1964 Unknown [id number] 2.16.840.1.878253.3.579.2. 593 1964 Unknown [id number] 2.16.840.1.388360.3.579.2. 593 1964 Unknown [id number] 2.16.840.1.286772.3.579.2. 593 1964 Unknown [id number] 2.16.840.1.561902.3.579.2. 593 1964 Unknown [id number] 2.16.840.1.364912.3.579.2. 593 1964 Unknown [id number] 2.16.840.1.191293.3.579.2. 593 1964 Unknown [id number] 2.16.840.1.520734.3.579.2. 593 1964 Unknown [id number] 2.16.840.1.526612.3.579.2. 593 1964 Unknown [id number] 2.16.840.1.782978.3.579.2. 593 1964 Unknown [id number] 2.16.840.1.782461.3.579.2. 593 1964 Unknown [id number] 2.16.840.1.030745.3.579.2. 593 1964 Unknown [id number] 2.16.840.1.998485.3.579.2. 593 1964 Unknown [id number] 2.16.840.1.311821.3.579.2. 593 1964 Unknown [id number] 2.16.840.1.857141.3.579.2. 593 1964 Unknown [id number] 2.16.840.1.580077.3.579.2. 125 1964 Unknown [id number] 2.16840.1.456959.3.579.2. 1258 1964 Unknown [id number] 2.16840.1.295558.3.579.2. 1258 1964 Unknown [id number] 2.840.1.431653.3.579.2. 125 1964 Unknown [id number] 2.840.1.436323.3.579.2. 125 1964 Unknown [id number] 2.840.1.408052.3.579.2. 1258 1964 Unknown [id number] 2.840.1.861062.3.579.2. 125 1964 Unknown [id number] 2.840.1.214370.3.579.2. 125 1964 Unknown [id number] 2.840.1.051481.3.579.2. 125 1964 Unknown [id number] 2.840.1.544471.3.579.2. 1258 1964 Unknown [id number] 2.16840.1.524238.3.579.2. 1258 1964 Unknown [id number] 2.16840.1.352847.3.579.2. 1258 1964 Unknown [id number] 2.16.840.1.715429.3.579.2. 1258 1964 Unknown [id number] 2.16.840.1.903644.3.579.2. 1258 1964 Unknown [id number] 2.16.840.1.137233.3.579.2. 1258 1964 Unknown [id number] 2.16.840.1.224910.3.579.2. 1258 1964 Unknown [id number] 2.16.840.1.642829.3.579.2. 1258 1964 Unknown [id number] 2.16.840.1.835004.3.579.2. 1258 1964 Unknown [id number] 2.16.840.1.816365.3.579.2. 1258 1964 Unknown [id number] 2.16.840.1.663082.3.579.2. 1258 1964 Unknown [id number] 2.16.840.1.702640.3.579.2. 1258 1964 Unknown [id number] 2.16.840.1.362736.3.579.2. 1258 1964 Unknown [id number] 2.16.840.1.121750.3.579.2. 1258 1964 Unknown [id number] 2.16.840.1.089499.3.579.2. 1258 1964 Unknown [id number] 2.16.840.1.142676.3.579.2. 9 1959 Self-pay [id number] 1959 Unknown [id number] Medicaid [employer] Medicaid [id number] Unknown [id number] 2.16.840.1.869532.3.579.2. 531 Unknown [id number] 2.16.840.1.479395.3.579.2. 531 Unknown [id number] 2.16.840.1.462921.3.579.2. 531 Social History Date Type Detail Facility Tobacco smoking stat us NHIS Unknown if ever smoked [facility] Work Phone: Start: 1965 Sex Assigned At Female [facility] Start: 08-10-2022 End: 06-24-2024 Tobacco smoking status NHIS Never smoked tobacco (finding) [facility] Start: 03-06-2024 Tobacco smoking status INIS Tobacco smoking consumption unknown [facility] Start: 03-06-2024 End: 05-05-2025 History of Social function [facility] Start: 03-06-2024 End: 05-05-2025 Area Deprivation Index [facility] National Score (1-10 0), lower number is lower risk 76 [facility] Start: 1965 Sex Assigned At Not on file [facility] Start: 06-24-2024 Tobacco use and exposure Smokeless tobacco non-user [facility] Start: 06-24-2024 End: 05-05-2025 Alcoholic beverage intake Ex-drinker (finding) [facility] Start: 06-21-2024 Gender identity Identifies as female gender (finding) [facility] Start: 06-21-2024 Sexual orientation Heterosexual (finding) [facility] Start: 11-28-2024 End: 12-04-2024 Sex Female (finding) [facility] Medical Equipment Procedure Code Equipment Code Equipment Origin al Text Equipment Identifier Dates Thoracotomy Surgical adhesive/sealant, human-derived ([id number] [facility] Start: 08-10-2022 Goals Date Patient Goal Desired Activity /State Functional Status Date Assessment Result Facility 12-04-2024 Functional status Patient at Baseline [facility] Work Phone: 08-12-2022 Functional status Patient at Baseline [facility] Work Phone: Mental Status Date Assessment Result Facility 12-04-2024 Cognitive function Cognitive Sta tus Patient at Baseline [facility] Work Phone: 08-12-2022 Cognitive function Cognitive Sta tus Patient at Baseline [facility] Work Phone: Clinical Notes 08-10-2022 [...] be re-evaluated every 24 hours. Shari Harris, CAR SEAT COVERER 07/17/2025 [facility] 07-16-2025 Note Attestation signed by Eyal [...] Additional Findings : Patient stated that her respooler retired and she had not seen a respooler for a long time. Not on oxygen at home Continue prednisone, azithromycin, DuoNebs, reestablish care with pulmonology outpatient. Possible DC tomorrow Eyal Brooke MD assistant professor of economics, Division of Internal Medicine [facility] Med-7 Daily Progress Note - 07/16/2025 12:37 PM; Room: [address] [place] [address] Admission: 07/15/2025 2:46 PM; Length of stay: [...] a day. Patient has not seen a respooler for a while and would like to establish care with a new respooler. She reports shortness of breath, cough, and [...] Active Inpatient Problems Principal Problem: COPD exacerbation (CMS/[facility]) Active Problems: Other hyperlipidemia Acute hypoxic [...] 4.01 HEMOGLOBIN g/dL (more content not included)... [facility] 07-16-2025 Note 07/16/25 1211 Admission Assessment [...] Interested Does the patient have a case investigator assigned to them through their insurance? No [...] to send link and activate MyChart? No [facility] 07-16-2025 Note Respiratory Progress Note Patient [...] Patient will be re-evaluated every 24 hours. Beti Martin, CAR SEAT COVERER 07/16/2025 [facility] 07-15-2025 Note - Continue levothyroxine [facility] 07-15-2025 Note - Continue Lamictal, Celexa, Wellbutrin [facility] 07-15-2025 Note - S/p PPM [facility] 07-15-2025 Note - Continue simvastatin [facility] 07-15-2025 Note - Patient hypoxic up on arrival, 2 L nasal cannula placed, wean as able -Begin azithromycin x 3 days -Begin prednisone 40 mg oral x 5 days -Mucinex every 12 hours as needed -DuoNebs every 6 hours as needed [facility] 07-15-2025 Note 07/15/252021 Bronchodilator Assessment Grid RR 3 Dyspnea 2 Breath Sounds 2 Resp History 2 Oxygen to keep SpO2 >/= 92% 2 Peak Flow 0 Level Level 2 Patient came in through ED with family SOB. Per protocol will be scheduled TID [facility] 07-15-2025 Note Hospital Medicine History and Physical 07/15/2025 7:07 PM THE HOSPITALIST TEAM PREFERS TO USE [employer] FOR NON-URGENT COMMUNICATION 7AM-7PM. IF I DO NOT RESPOND WITHIN 20 MINUTES OR URGENT MATTERS, PLEASE CALL THROUGH THE [employer]URN[employer]. FROM 7PM-7AM, PLEASE PAGE [phone](COVR). Chief Complaint Chief Complaint Patient presents with [...] COPD exacerbation (CMS/HCC) Acute hypoxic respiratory failure (CMS/[facility]) - Patient hypoxic upon arrival, 2 L nasal cannula placed, wean as able -Begin azithromycin x 3 days -Begin prednisone 40 mg oral x 5 days -Mucinex every 12 hours as needed -DuoNebs every 6 hours as needed Other hyperlipidemia - Continue simvastatin Complete AV block ([facility]) - S/p PPM Bipolar depression ([facility]) - Continue Lamictal, Celexa, Wellbutrin Acquired [...] this hospital stay by a member of [facility]. Past Medical History Medical History[1] [...] use: Not Currently (more content not included)... [facility] 07-15-2025 Note 07/15/25 3887 Financial Resource Strain How hard is it [...] were you homeless or living in a group home (including now)? N Transportation Needs In the [...] than 3 How often do you attend presybeterian or pentecostal services? More than 4 Do you belong to any clubs or organizations such as presybeterian groups, unions, fraternal or athletic groups, or [...] In the past 12 months has the [employer], gas, oil, or water [employer] threatened to shut off services in your home? 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 [facility] 05-21-2025 Telephone encounter Note Post op pain rx. PDMP reviewed [facility] 05-21-2025 Miscellaneous Notes Post op pain rx. PDMP reviewed documented in this encounter [facility] 05-05-2025 History of Presen [...] Daily RT ergocalciferol (Vitamin D-2) 1.25 MG (10706 UT) capsule 1 capsule escitalopram (LEXAPRO) 10 [...] for Post-Op June 04 @ 1:[address] [place] [address] Teague. documented in this encounter [facility] 03-28-2025 Note SUBJECTIVE Reason for Visit: [...] bradycardia. The patient was recently admitted to [facility] (11/25-11/27) after running out of home oxygen for approximately two weeks, experiencing dizziness, shortness of breath, and oxygen desaturations below 90%. She also had a four-day history of fever, nausea, vomiting, and decreased oral intake. Workup revealed influenza A and right lower lobe pneumonia. She was treated with supplemental oxygen, Tamiflu, steroids, and antibiotics before discharge. Most recent discharge from [facility] admission date 02/20/2025 Primary diagnoses hypoxia, [...] 20 mg, Daily (more content not included)... [facility] 03-28-2025 Note Patient here today f or a 4 month follow up. Patient states she is doing well, no cardiac complaints at this time. Patient states she will be having left hand surgery in April or May with Dr. Teague. Review of Systems Constitutional: Negative. [facility] 02-17-2025 History of Presen t illness [...] Daily RT ergocalciferol (Vitamin D-2) 1.25 MG (40533 UT) capsule 1 capsule escitalopram (LEXAPRO) 10 [...] for requiring urgent evaluation. Naseem Carter APRN, COMPENSATION AND BENEFITS ANALYST-C Naseem Carter NP documented in this encounter [facility] 02-11-2025 Telephone encounter Note Patient can come to [place] 02/17 at 1:30. [facility] 02-11-2025 Miscellaneous Notes Patient can come to [place] 02/17 at 1:30. Called patient back, had to leave a voicemail. She does need to come back in for surgery instructions. She can do Monday @ 1:30 if she calls back. Patient called and left vm stating she missed her appt today because she had the flu. Please call patient at [phone]. documented in this encounter [facility] 02-11-2025 Telephone encounter Note Called patient back, had to leave a voicemail. She does need to come back in for surgery instructions. She can do Monday @ 1:30 if she calls back. [facility] 02-10-2025 Telephone encounter Note Patient called and left vm stating she missed her appt today because she had the flu. Please call patient at [phone]. [facility] 01-08-2025 History of Presen [...] 09/16/24, 08/19/24, 07/22/24 IN EPIC XRAY 06/19/25 @[facility] (L) UE EMG 11/28/24 NO MRI [...] CONTUSION TO (L) HAND ; TAKEN TO [facility] ER - TX WITH NORCO (R) [...] Daily RT ergocalciferol (Vitamin D-2) 1.25 MG (56460 UT) capsule 1 capsule escitalopram (LEXAPRO) 10 [...] is normal. 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 documented in this encounter [facility] 12-04-2024 Discharge summary Note Date/Time December 04, 2024 9:05 am [facility] [address] [place] [address] Discharge Summary Signed Patient: Emigdio Apodaca MR#: [id number] : 1965 Acct:[id number] Age/Sex: 59 / F Adm Date: 5 Loc: Room: [address] [place] [address]: Jaquan Babin MD Copies to: [...] respond. 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 She reports not eating, poor ADLs, not taking her medications and sleeping too much. She denies alcoholor illegal substance abuse. Patient denies hallucinations. Patient did report her sister completed suicide. Of note, patient reports being in [facility] Monday and Monday of last week [...] them since Monday when she was at [facility] for the flu. She states her diarrhea has improved. She did eat some breakfast this morning but states she is a picky eater. Patient sees Jennifer Beasley counselor in [place]. 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 If at any time you are feeling an increase inyour psychiatric symptoms, call your physician or behavioral healthcare provider. If any time you have thoughts of harming yourself or others contact one of the following: Call (available 24/04) Crisis Text Line (available 24/04) text 4HOPE to [phone] [facility] Hope Line (available 8 a.m. Midnight) call [phone] ([phone]) Instructions: Know your Meds Prescriptions: Continued lamotrigine [...] Patient Comments: 3 days left Follow Up: [facility] [Outside] (established) Tony Amaya MD [...] <Electronically signed by Jaquan Babin MD> 12/04/24 [facility] Work Phone: 1(715) 290-682403-05-[address] [address] Discharge Summary Signed Patient: Emigdio Apodaca MR#: [id number] : 1965 Acct:[id number] Age/Sex: 59 / F Adm Date: 5 Loc: Room: [address] [place] [address]: Jaquan Babin MD Copies to: [...] respond. 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 She reports not eating, poor ADLs, not taking her medications and sleeping too much. She denies alcoholor illegal substance abuse. Patient denies hallucinations. Patientdid report her sister completed suicide. Of note, patient reports being in [facility] Monday and Monday of last week [...] them since Monday when she was at [facility] for the flu. She states herdiarrhea has improved. She did eat some breakfast this morning but states she is a picky eater. Patient sees Jennifer Beasley, counselor in [place]. 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 If at anytime you are feeling an increase inyour psychiatric symptoms, call your physician or behavioral healthcare provider. If any time you have thoughts of harming yourself or others contact one of the following: Call (available 24/04) Crisis Text Line (available 24/04) text 4HOPE to [phone] [facility] (available 8 a.m. Midnight) call [phone] ([phone]) Instructions: Know your Meds Prescriptions: Continued lamotrigine [...] Patient Comments: 3 days left Follow Up: [facility] [Outside] (established) Tony Amaya MD [Primary Care Provider] - (Call for any medical needs) Exam Physical Exam Vital Signs: Temp Pulse Resp BP Pulse Ox O2 Del Method 98.1 F 78 16 99/66 L 96 Room Air 12/03/24 20:15 12/03/24 20:15 12/03/24 20:15 12/03/24 20:15 12/03/24 20:15 12/03/24 20:15 Documented By: Jaquan Babin MD 12/04/24 1001 Signed By: 12/04/24 1005 [facility]03-04-2025 Progress note Author Jaquan Babin [facility] Note Date/Time December 03, 2024 1:11 pm [facility] [address] [place] [address] Psychiatry Progress Note Signed Patient: Emigdio Apodaca MR#: [id number] : 1965 Acct:[id number] Age/Sex: 59 / F Adm Date: 5 Loc: Room: [address] [place] [address] Type : ADM IN Attending Dr: Jaquan [...] <Electronically signed by Jaquan Babin MD> 12/03/[address] [facility] Work Phone: 1(874) 661-286303-04-2025 [place] [address] Psychiatry Progress Note Signed Patient: Emigdio Apodaca MR#: [id number] : 1965 Acct:[id number] Age/Sex: 59 / F Adm Date: 5 Loc: Room: [address] [place] [address] Type : ADM IN Attending Dr: Jaquan Babin MD Copies to: ~ Date of Service: 12/03/2024 Subjective Subjective Narrative: Ms. Apdoaca states that is doing ok . She [...] Babin MD 12/03/24 0939 Signed By: 12/03/[address] [place], [place] 5607503-03-2025 History and physical note Author Jaquan Babin [facility] Note Date/Time December 02, 2024 1:55 pm [facility] [address] [place] [address] Psychiatry H&P Signed Patient: Emigdio Apodaca MR#: [id number] : 1965 Acct:[id number] Age/Sex: 59 / F Adm Date: 5 Loc: Room: [address] [place] [address] Type: ADM IN Attending Dr: Jaquan Babin [...] respond. 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 She reports not eating, poor ADLs, not taking her medications and sleeping too much. She denies alcoholor illegal substance abuse. Patient denies hallucinations. Patient did report her sister completed suicide. Of note, patient reports being in [facility] Monday and Monday of last week [...] them since Monday when she was at [facility] for the flu. She states her diarrhea has improved. She did eat some breakfast this morning but states she is a picky eater. Patient sees Jennifer Beasley counselor in [place]. 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 She reports not eating, poor ADLs, not taking her medications and sleeping too much. She denies alcoholor illegal substance abuse. Patient denies hallucinations. Patientdid report her sister completed suicide. Of note, patient reports being in [facility] Monday and Monday of last week [...] them since Monday when she was at [facility] for the flu. She states her diarrhea has improved. She did eat some breakfast this morning but states she is a picky eater. Patient sees Jennifer Beasley counselor in [place]. 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 Work Phone: 1([phone]) 674-536402-28-2025 NoteSUBJECTIVE Reason for Visit: Emigdio Apodaca is [...] bradycardia. The patient was recently admitted to [facility] (11/25-11/27) after running out of home [...] Ventricular Rate 02/21/2024 79 (more content not included)...[facility]02-27-2025 History of Present illness Narrative* Tye Dominguez, ARRT - 11/28/2024 11:00 AM EST Images from the original note were not included. Reason for Appointment: EMG Patient: Emigdio Apodaca : 1965 EMG Computer: [employer] Referring Physician: Zulema GIBSON EMG: CAITLIN archivist military history: Tye Dominguez RT(R) Office Location: [place] Reason for EMG: c/o numbness/tingling in left hand. No hx of DM. Not on blood thinners. Comments: Procedure was explained to the patient who expressed understanding. Patient appeared to have tolerated the test well despite some discomfort due to the nature of the test. documented in this encounterMoberly Regional Medical [id number] History of Present illness Narrative* Zulema Mackay [...] able to walk afterwards, was taken to [facility] ER on 06/19/24 by her partner [...] to the therapist recommending a Neurologist. [place]: XR/06/19/24/[facility] LT hand, RT knee, LT shoulder, [facility] ER 06/19/24, norco, IBU, XR NOMS [...] able to walk afterwards, was taken to [facility] ER on 06/19/24 by her partner [...] was dx with 6 months ago. [place]: XR/06/19/24/[facility] LT hand, RT knee, LT shoulder, [facility] ER 06/19/24, norco, IBU, XR NOMS [...] sensation in all fingers documented in this encounterMoberly Regional Medical [id number] History of Present illness Narrative* Zehra Bunch, OT - 11/08/2024 12:00 PM EST Occupational Therapy Occupational Therapy Treatment Visit Patient Name: Emigdio Apodaca Today's Date: 11/08/2024 Linked Episodes Type: Episode: Status: Noted: Resolved: Last update: Updated by: Occupational Therapy L 5th digit fracture Active 10/08/2024 11/08/2024 9:28 AM Zehra Bunch OT Comments:Episode created from referral [id number] Visit number: 02/06 Timed Code Treatment minutes: [...] numbness and spasms to the L hand. Estimator Jewelry strength has increased to 25# and LP has remained at 5#. Encouraged stretching/ nerve glides at home. Does have a follow upwith ortho on Monday. P: Continue with POC, progress per toleration. documented in this encounterMoberly Regional Medical [id number] History of Present illness Narrative* Zehra Bunch OT - 11/05/2024 12:00 PM EST Occupational Therapy Occupational Therapy Treatment Visit Patient Name: Emigdio Apodaca Today's Date: 11/05/2024 Linked Episodes Type: Episode: Status: Noted: Resolved: Last update: Updated by: Occupational Therapy L 5th digit fracture Active 10/08/2024 11/01/2024 12:46 PM Zehra Bunch OT Comments:Episode created from referral [id number] Visit number: 4 Timed Code Treatment minutes: [...] POC, progress per toleration. documented in this encounterNOTexas County Memorial HospitalVjoxmcgakx70-68-8008 Telephone encounter Note* Telephone Encounter - Joanna Boo - 11/01/2024 12:43 PM EST She called noting not feeling well and is cx OT for today. I reminded her, her next on 11/05. She said she'll try to be here; I told her if not feeling better to contact. [facility] [id number] Miscellaneous Notes* Telephone Encounter - Joanna Boo - 11/01/2024 12:43 PM EST She called noting not feeling well and is cx OT for today. I reminded her, her next on 11/05. She said she'll try to be here; I told her if not feeling better to contact. documented in this encounterMoberly Regional Medical [id number] History of Present illness Narrative* Zehra Bunch, OT - 10/29/2024 1:00 PM EST Occupational Therapy Occupational Therapy Treatment Visit Patient Name: Emigdio Apodaca Today's Date: 10/29/2024 Linked Episodes Type: Episode: Status: Noted: Resolved: Last update: Updated by: Occupational Therapy L 5th digit fracture Active 10/08/2024 10/28/2024 1:49 PM Zehra Bunch OT Comments:Episode created from referral [id number] Visit number: 12/07 Timed Code Treatment minutes: [...] POC, progress per toleration. documented in this encounterMoberly Regional Medical [id number] History of Present illness Narrative* Zehra Bunch OT - 10/25/2024 9:00 AM EST Occupational Therapy Occupational Therapy Treatment Visit Patient Name: Emigdio Apodaca Today's Date: 10/25/2024 Linked Episodes Type: Episode: Status: Noted: Resolved: Last update: Updated by: Occupational Therapy L 5th digit fracture Active 10/08/2024 10/24/2024 11:08 AM Zehra Bunch OT Comments:Episode created from referral [id number] Visit number: 2 Timed Code Treatment minutes: [...] POC, progress per toleration. documented in this encounterMoberly Regional Medical [id number] History of Present illness Narrative* Zehra Bunch [...] Amb, Background User Comments:Episode created from referral [id number] Visit number: 1 Subjective Interim History: 59 [...] 5th digit. Strength Strength additional comments: L high raw sugar boiler strength: 15# LP: 5# R high raw sugar boiler strength: 30# LP: 9 Treatment: Education: HEP [...] for light strengthening and ROM at discharge. Senior Care Goals: PRWHE Pain Score < 10/50 ( IE: 33/50) PRWHE Functional Score < 10/100 ( IE:57/100 ) Increase L 5th digit CHAO to 100% pain free in order to complete I/ADL tasks at discharge. Pt to increase high raw sugar boiler strength by 10# and LP by 2# [...] Please sign below. Date: documented in this encounterMoberly Regional Medical [id number] Telephone encounter Note* Telephone Encounter - Joanna Boo - 10/08/2024 1:36 PM EST She called back and we scheduled her OT Eval for 10 w/ Florinawaldo Degroot, OT. [facility] [id number] Miscellaneous Notes* Telephone Encounter - Joanna Boo - 10/08/2024 1:36 PM EST She called back and we scheduled her OT Eval for 10 w/ Florina Degroot, OT. * Telephone Encounter - Joanna Boo - 10/08/2024 11:46 AM EST Tried to contact to set-up OT for L hand, but the voicemail is full. documented in this encounterMoberly Regional Medical [id number] Telephone encounter Note* Telephone Encounter - Joanna Boo - 10/08/2024 11:46 AM EST Tried to contact to set-up OT for L hand, but the voicemail is full. [facility] [id number] History of Present illness Narrative* Zulema Mackay [...] able to walk afterwards, was taken to [facility] ER on 06/19/24 by her partner [...] XR/06/19/24/[facility] LT hand, RT knee, LT shoulder, [facility] ER 06/19/24, norco, IBU, XR NOMS 07/22/24, XRNOMS 08/19/[address] RT knee [facility] 07/05/24 Notes she started taking fosamax in 2023. States her knee is feeling better. 3.5 months Pt had tripped over a sidewalk and Fell landing on her left hand and right knee. DOI 06/19/24, she then hit her chest and rolled over onto her left shoulder hitting her shoulder. She was able to walk afterwards, was taken to [facility] ER on 06/19/24 by her partner [...] XR/06/19/24/[facility] LT hand, RT knee, LT shoulder, [facility] ER 06/19/24, norco, IBU, XR NOMS [...] able to walk afterwards, was taken to [facility] ER on 06/19/24 by her partner Pt is RT handed. Hand is stiff and has been getting spasms still between 4th and 5th MC. Denies pain today. Taking TYL for multiple things. Using ice and heat. Has been moving fingers. Good ROM. Intermittent numbness, mostly in thumb. Intermittent swelling. Sometimes wakes at HS. [place]: XR/06/19/24/[facility] LT hand, RT knee, LT shoulder, [facility] ER 06/19/24, norco, IBU, XR NOMS [...] able to walk afterwards, was taken to [facility] ER on 06/19/24 by her partner [...] was dx with 6 months ago. [place]: XR/06/19/24/[facility] LT hand, RT knee, LT shoulder, [facility] ER 06/19/24, norco, IBU, XR NOM[facility] 06/24, CT [facility]1, XR [facility] 08/07/24 RT elbow Pt notes she fell on 08/04/23 and hit her right elbow. 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 [...] Capillary refill: <3 sec documented in this [facility]12-16-2024 History of Present illness Narrative* Zulema Mackay, COMPENSATION AND BENEFITS ANALYST - 09/16/2024 10:00 AM EST Images from [...] able to walk afterwards, was taken to [facility] ER on 06/19/24 by her partner [...] today, goes to 5-6/10 with spasms. [place]: XR/06/19/24/[facility] LT hand, RT knee, LT shoulder, [facility] ER 06/19/24, norco, IBU, XR NOMS [...] able to walk afterwards, was taken to [facility] ER on 06/19/24 by her partner [...] Capillary refill: <3 sec documented in this [facility]11-18-2024 History of Present illness Narrative* [...] able to walk afterwards, was taken to [facility] ER on 06/19/24 by her partner [...] numbness in the thumb. Denies swelling. [place]: XR/06/19/24/[facility] LT hand, RT knee, LT shoulder, [facility] ER 06/19/24, norco, IBU, XR NOMS [...] base of 5th MC fracture. Zulema Mackay DRIER TRANSFER CAR OPERATOR Assessment/Plan Encounter Diagnoses: ICD-10-CM 1. Right elbow [...] of the left hand documented in this encounterMoberly Regional Medical [id number] History of Present illness Narrative* Zulema Mackay NP - 08/07/2024 11:00 AM EST Images from the original note were not included. Subjective Patient ID: Emigdio Apodaca is a 58 y.o. female. RT Knee CT RT knee [facility] 07/05/24 Notes she started taking fosamax [...] able to walk afterwards, was taken to [facility] ER on 06/19/24 by her partner [...] was dx with 6 months ago. [place]: XR/06/19/24/[facility] LT hand, RT knee, LT shoulder, [facility] ER 06/19/24, norco, IBU, XR NOMS [...] healing non displaced patella fracture Zulema Mackay [facility] XR elbow 1 or 2 views right Imaging Result: Xrays AP and LAT of the right elbow performed on August 07, 2024 demonstrates no swelling, no fractures appreciated, joint congruent. Impression Unremarkable xrays of the right elbow Zulema Mackay [facility] Assessment/Plan Encounter Diagnoses: ICD-10-CM 1. Closed nondisplaced [...] how she is doing. documented in this encounterMoberly Regional Medical [id number] History of Present illness Narrative* Zulema Mackay [...] able to walk afterwards, was taken to [facility] ER on 06/19/24 by her partner [...] Healing 5th MC base fracture. Zulema Mackay DRIER TRANSFER CAR OPERATOR Assessment/Plan Encounter Diagnoses: ICD-10-CM 1. Left hand [...] of the left hand documented in this encounterAngela [place] [id number] History of Present illness Narrative* Zulema Smith Thompson, COMPENSATION AND BENEFITS ANALYST - 07/10/2024 12:15 PM EDT Images from the original note were not included. Subjective Patient ID: Emigdio Aopdaca is a 58 y.o. female. RT Knee CT RT knee [facility] 07/05/24 3 weeks ago, Pt had tripped over a sidewalk and Fell landing on her left hand and right knee. DOI 06/19/24, she then hit her chest and rolled over onto her left shoulder hitting her shoulder. She was able to walk afterwards, was taken to [facility] ER on 06/19/24 by her partner [...] was dx with 6 months ago. [place]: XR/06/19/24/[facility] LT hand, RT knee, LT shoulder, [facility] ER 06/19/24, norco, IBU, XR NOMS [...] ct of the right knee done at [facility] on 07/05/24 reveals a non displaced [...] or polycentric), positional orthosis, rigid support, prefabricated, [id number] knee brace. Brace is locked at 0 [...] wbat in the brace documented in this encounterMoberly Regional Medical [id number] History of Present illness Narrative* Zulema Mackay [...] able to walk afterwards, was taken to [facility] ER on 06/19/24 by her partner [...] xrays of the left hand done at [facility] on 06/19/24 reveals possible 5th MC fracture. I reviewed the xrays of the right knee and reveals possible patella fracture. I reviewed the xrays of the left shoulder and reveals AC and GH arthritis, no fractures noted. I reviewed [facility] ER report from 06/19/24 in addtion, [...] of the left hand documented in this encounterMoberly Regional Medical [id number] History of Present illness Narrative* Zoila Monae MD - 06/13/2024 12:30 PM EDT [facility] Neu[facility] Follow up/ Established patient visit Individuals who were included in, or assisted with the encounter were: Emigdio Apodaca Zoila Moane MD Chief Complaint/Issues: Emigdio Apodaca is a 58 year old female seen in the [facility] [place] for General Neurology for: Staring spells. Most [...] that she can have it done in [place] but she would rather come here. She [...] which included preparing to see the patient, toyb-qq-[id number] patient care, completing clinical documentation, obtaining and/or reviewing separately obtained history, performing a medically appropriate examination, counseling and educating the pat ient/family/caregiver, ordering medications, tests, or procedures, communicating with other HCPs (not separately reported), and communicating results to the patient/family/caregiver. Zoila Monae MD documented in this [facility] NoteHNO ID: [id number] Author: ZOILA MONAE MD Service: ? Author Type: Physician Type: Progress Notes Filed: 06/13/2024 13:41 Note Text: [facility] General Neurology Follow up/ Established patient [...] that she can have it done in [place] but she would rather come here. She [...] Take 100 mg b (more content not included)...[facility]09-10-2024 NoteHNO ID: [id number] Author: NARCISA YUSUF MD Service: Neurology General Author Type: Physician Type: Procedures Filed: 06/13/2024 13:25 Note Text: [facility] - Electroencephalogram EMIGDIO APODACA : 1965 AGE: 58 SEX: F CSN: [id number] HOSP SVC: LOCATION: ATTENDING PHYSICIAN: DATE OF [...] have been noted. Narcisa Yusuf M.D. Neurology HK:[id number] Telephone encounter Note* Telephone Encounter - Zoila Monae MD - 06/04/2024 1:21 PM EDT A new neuropsych order has been put in. Thanks Zoila Monae MD [facility] Work Phone: 1(445) 807-519709-03-2024 Miscellaneous Notes* Telephone Encounter - Zoila Monae MD - 06/04/2024 1:21 PM EDT A new neuropsych order has been put in. Thanks Ziola Monae MD documented in this encounter[facility]09-03-2024 NoteHNO ID: [id number] Author: ZOILA MONAE MD Service: ? Author Type: Physician Type: Progress Notes Filed: 06/04/2024 13:22 Note Text: Neuropsychology order had when they tried to get her in. A new order has been put in and good for a year. Zoila Monae [facility]09-03-2024 History of Present illness Narrative* Zoila Monae MD - 06/04/2024 1:18 PM EDT Neuropsychology order had when they tried to get her in. A new order has been put in and good for a year. Zoila Monae MD documented in this [facility]24 Telephone encounter Note * Telephone Encounter - Iveth Salazar - 05/28/2024 9:17 AM EDT Call center called the office on patients behalf stating they tried to schedule NEUROPSYCHOLOGICAL TESTING CONSULT But the test is booking out further than the active request. Would need it re ordered for scheduling. [facility]08-27-[facility]24 Miscellaneous Notes* Telephone Encounter - Iveth Salazar - 05/28/2024 9:17 AM EDT Call center called the office on patients behalf stating they tried to schedule NEUROPSYCHOLOGICAL TESTING CONSULT But the test is booking out further than the active request. Would need it re ordered for scheduling. documented in this encounter[facility]06-[facility] History of Present illness Narrative* Zoila Monae MD - 03/06/2024 2:00 PM EDT Images from the original note were not included. [facility] for General Neurology New Patient Evaluation Consulting Provider: Tony Amaya [address] [facility] [address] The patient presents with a chief complaint [...] year old Rh female seen in the [facility] for General Neurology for: Cognitive evaluation and [...] for low IQ. She worked in a [employer] shop and only worked 6 months. She [...] Version 1 Total Score: 17/30 Visuospatial/Executive Alternating Maxbass Making: Patient successfully draws the pattern without [...] fabric' (0) Word 3: Required multiple choice- '[facility]' (0) Word 4: Required category [...] Abnormal ECG COPD (chronic obstructive pulmonary disease) ([facility]) Hyperlipidemia Past Surgical History: Procedure Laterality [...] signed: Karthikeyan Linn. Outside Data/Labs: 01/2024 at [facility]: Tox screen negative, Etoh negative, CBC is normal, CMP is normal, Folate 34, B12 148, TSH 0.01 IMPRESSION: Unremarkable intracranial CT angiogram. Unremarkable unenhanced CT of the brain. Unremarkable extracranial CT angiogram Subjective Patient-Entered Data: 03/04/24 - GENERAL NEUROLOGY SCORES I spent a total of 55 minutes on the date of the service which included preparing to see the patient, gyjt-lt-fxpl patient care, completing clinical documentation, obtaining and/or reviewing separately obtained history, performing a medically appropriate examination, counseling and educating the pat ient/family/caregiver, ordering medications, tests, or procedures, communicating with other HCPs (not separately reported), and communicating results to the patient/family/caregiver. Zoila Monae MD documented in this encounter[facility]06-05-2024 NoteHNO ID: [id number] Author: ZOILA MONAE MD Service: ? Author Type: Physician Type: Progress Notes Filed: 03/06/2024 15:39 Note Text: [facility] General Neurology New Patient Evaluation Consulting Provider: Tony Amaya [address] [address] The patient presents with a chief complaint [...] year old Rh female seen in the [facility] [place] for General Neurology for: Cognitive evaluation and [...] Version 1 Total Score: 17/30 Visuospatial/Executive Alternating Maxbass Making: Patient successfully draws the (more content not included)...[facility]11-11-2022 History and physical note Author Rodolfo Harley [facility] August 12, 2022 1:45pm Note Date/Time August 04, 2022 3 :52pm [facility] EN[facility] [address] [place] [address] Cardiothoracic Surgery H&P Signed Patient: Emigdio Apodaca MR#: [id number] : 1965 Acct:[id number] Age/Sex: 56 / F Adm Date: 2 Loc: [place] Room: Type: [facility] Attending Dr: Rodolfo Harley MD Copies to: [...] IgG IgM and IgA were all negative. Anti-RI-3 antibodies were 5.0. ?P ANCA was 1:80. [...] 2020 in the left chest from a food and beverage lead at [facility] patient was unable to [...] normal TSHlevel on 07/04/22 from [facility]. We will give 100 mg of IV Solu-Cortef on-call to the OR. We will utilize vancomycin and Levaquin given the questionable history of penicillin allergy with hives as a baby, although she states she recently had penicillin without issues. Documented By: Rodolfo Harley MD 08/04/22 1223 Signed By: <Electronically signed by MD Rodolfo Harley> 08/12/22 0199 [facility] Work Phone: 1(291) 512-844211-11-2022 Hospital Discharge instructionsAmbulatory Orders* Initiate Home Health Time Frame: 08/12/22, Location: Determined By Patient Additional Instructions no lifting 5-10 lbs. Continue Peridex mouthwash. May remove dressing tomorrow. Daily showers with Betasept wash. No driving.[facility] Work Phone: 1(237) 338-924111-11-2022 Progress note Author Monika Meza [facility] August 12, 2022 11:59am Note Date/Time August 12, 2022 8:13am [facility] [address] [place] [address] Pulmonology Progress Note Signed Patient: Emigdio Apodaca MR#: [id number] : 1965 Acct:[id number] Age/Sex: 56 / F Adm Date: 2 Loc: Room: [address] [place] [address] Type: REG SDC Attending Dr: Rodolfo Harley [...] needed. Documented By: Monika Meza MD 2 1311 Signed By: <Electronically signed by MD Monika Meza> 08/12/22 1516 [facility] Work Phone: 1(384) 415-180211-10-2022 Progress note Author Monika Meza [facility] August 11, 2022 10:07am Note Date/Time August 11, 2022 7:43am [facility] [address] [place] [address] Pulmonology Progress Note Signed Patient: Emigdio Apodaca MR#: [id number] : 1965 Acct:[id number] Age/Sex: 56 / F Adm Date: 2 Loc: Room: [address] [place] [address] Type: [facility] SDC Attending Dr: Rodolfo Harley MD [...] signed by MD Monika Meza> 08/11/22 1007 [facility] Work Phone: 1(764) 613-611211-09-2022 Consult note Author Monika Meza [facility] August 10, 2022 5:46pm Note Date/Time August 10, 2022 5 :41pm [facility] [address] [place] [address] Pulmonology Consult Note Signed Patient: Emigdio Apodaca MR#: [id number] : 1965 Acct:[id number] Age/Sex: 56 / F Adm Date: 2 Loc: Room: [address] [place] [address] Type: [facility] Attending Dr: Rodolfo Harley MD Copies [...] been followed by Dr. Nadege Gardner at [place] with complaints of dyspnea on exertion [...] <Electronically signed by MD Monika Meza> 08/10/[address] [facility] Work Phone: evaluation noteNo assessment information available [facility] Work Phone: evaluation note* Diagnosis Onset Date Resolution Status Bipolar 1 disorder acute Bronchiectasis acute Hypercholesteremia acute Hypothyroidism acute Interstitial lung disease ac [facility] Work Phone: evaluation note* Diagnosis Onset Date Resolution Status Bipolar 1 disorder acute Hypercholesteremia acute Hypothyroidism acute Interstitial lung disease ac [place] Bipolar 1 disorder acute Bronchiectasis acute Hypercholesteremia acute Hypothyroidism acute Interstitial lung disease [facility] Work Phone: evaluation note* Diagnosis Memory deficit- Primary Memory loss Auditory hallucinations Hallucinations Mentally challenged Unspecified intellectual disabilities [facility] Memory deficit- Primary Memory loss Auditory hallucinations Hallucinations Mentally challenged Unspecified intellectual disabilities [facility] Diagnosis Memory deficit Memory loss Auditory hallucinations Hallucinations [facility] Diagnosis Transient neurological symptoms- Primary [facility] Diagnosis Closed nondisplaced fracture of right patella, unspecified fracture morphology, initial encounter- Primary Right knee pain, unspecified chronicity documented in this encounter [facility]* Diagnosis Left hand pain- Primary Pain in soft tissues of limb Contusion of dorsum of left hand Closed nondisplaced fracture of base of fifth metacarpal bone of left hand with routine healing, subsequent encounter documented in this encounter [facility]* Diagnosis Right elbow pain- Primary [...] acute postoperative pain documented in this encounter [facility] Outpatient Procedure (Routine) - Authorized Specialty Diagnoses / Procedures Referred By Chris cadena Referred To Contact [facility] Diagnoses Memory deficit Auditory hallucinations Procedures EPIL EEG ROUTINE ELECTROENCEPHALOGRAM REC COMA/[place] [id number] [place] [address] Referral ID Status Reason Start Date Expiration Date Visits Requested Visits Authorized [id number] Authorized Auto-Generat ed Referral 03/06/2024 03/06/2025 1 [...] EA ADDL 30 [place] [address] [place] [address] Referral ID Status Reason Start Date Expiration Date Visits Requested Visits Authorized [id number] Ref Not Required PCP Requested Referral 03/06/2024 06/04/2024 1 3 [facility] for referral (narrative)* Outpatient Procedure (Routine) - Closed Specialty Diagnoses / Procedures Referred By Chris cadena Referred To Contact [facility] Diagnoses Memory deficit Auditory hallucinations Procedures EPIL EEG ROUTINE ELECTROENCEPHALOGRAM REC COMA/[place] [id number] [place] [address] Referral ID Status Reason Start Date Expiration Date V isits Requested Visits Authorized [id number] Closed Auto-Generate d Referral 03/06/2024 03/06/2025 1 1 [facility] for visit Narrative* Outpatient Procedure (Routine) - Closed Specialty Diagnoses / Procedures Referred By Contac t Referred To Contact [facility] Diagnoses Memory deficit Auditory hallucinations Procedures EPIL EEG ROUTINE ELECTROENCEPHALOGRAM REC COMA/[place] [address] [place] [address] Neurological [place] [address] [place] [address] Referral ID Status Reason Start Date Expiration Date V isits Requested Visits Authorized [id number] Closed Auto-Generate d Referral 03/06/2024 03/06/2025 1 1 [facility] for visit Narrative* Consultation (Routine) - Authorized Specialty Diagnoses / Procedures Referred By Chris t Referred To Contact Occupational Therapy / Physical Therapy Diagnoses Closed nondisplaced fracture of base of fifth metacarpal bone of left hand with routine healing, subsequent encounter Procedures RI OFFICE/OUTPATIENT NEW HIGH MDM 60 MINUTES Zulema Mackay NP [address] [address] Phone: tel: fax: Zehra Bunch, OT [address] [address] Phone: tel:[phone] fax:[phone] Referral ID Status Reason Start Date Expiration Date Visits Requested Visits Authorized [id number] Authorized Consult and Treat 10/07/2024 04/05/2025 8 8 [facility] for visit Narrative* Consultation (Routine) - Authorized Specialty Diagnoses / Procedures Referred By Chris t Referred To Contact Occupational Therapy / Physical Therapy Diagnoses Closed nondisplaced fracture of base of fifth metacarpal bone of left hand with routine healing, subsequent encounter Procedures RI OFFICE/OUTPATIENT NEW HIGH MDM 60 MINUTES Zulema Mackay NP [address] [place] [facility] [address] [place] [address] Phone: tel: fax: Zehra Bunch, OT [address] [place] [address] Phone: tel:[phone] fax:[phone] Referral ID Status Reason Start Date Expiration Date Visits Requested Visits Authorized [id number] Authorized Consult and Treat 10/07/2024 10/01/2025 8 8 [facility] Narrative* Consultation (Routine) - Closed Specialty Diagnoses / Procedures Referred By Contac t Referred To Contact Neurology Diagnoses Numbness and tingling in left hand Procedures RI OFFICE/OUTPATIENT NEW HIGH MDM 60 MINUTES Zulema Mackay NP fax: Monika Vargas, [address] [place] [address] Phone: tel: fax: Referral ID Status Reason Start Date Expiration Date V isits Requested Visits Authorized [id number] Closed Specialty Services Required 11/11/2024 05/10/2025 1 [...] 2022 9:18am Hospital Course Note MR#: [id number] [facility] Pt. Name: Emigdio Apodaca Admitted: 03/30/2020 Discharged: [...] EA ADDL 30 [place] [address] [place] [address] Referral ID Status Reason Start Date Expiration Date Visits Requested Visits Authorized [id number] Ref Not Required PCP Requested Referral 06/04/2024 09/02/2024 1 3 Additional Source Comments INFORMATION SOURCE (unrecogn ized section and content) DATE CREATED AUTHOR 04/23/2020 [facility] DATE CREATED AUTHOR AUTHOR'S ORGANIZ ATION 01/07/2023 [facility] DATE CREATED AUTHOR AUTHOR'S ORGANIZ ATION 06/15/2024 [facility] DATE CREATED AUTHOR AUTHOR'S ORGANIZ ATION 09/22/2024 [facility] DATE CREATED AUTHOR AUTHOR'S ORGANIZ ATION 05/07/2025 [facility] EPIC DATE CREATED AUTHOR AUTHOR'S ORGANIZ ATION 05/14/2025 [facility] DATE CREATED AUTHOR AUTHOR'S ORGANIZ ATION 07/20/2025 [facility] Care Teams (unrecognized sec tion and [...] Active Rodolfo Harley MD Attending Provider Active Wort Extractor Relationship Specialty Start Date End Date Tony Amaya MD [address] [place] [address] Referring Family Medicine 02/09/24 Wort Extractor Relationship Specialty Start Date End Date Tony Amaya MD [address] [place] [address] Referring Family Medicine 02/09/24 Wort Extractor Relationship Specialty Start Date End Date Tony Amaya MD [address] [place] [address] Referring Family Medicine 02/09/24 Wort Extractor Relationship Specialty Start Date End Date Tony Amaya MD [address] [place] [facility] [place] [address] Referring Family Medicine 02/09/24 Wort Extractor Relationship Specialty Start Date End Date Tony Amaya MD [address] [place] [facility] [place] [address] PCP - General Family Medicine 06/13/24 Tony Amaya MD [address] [place] [facility] [place] [address] Referring Family Medicine 02/09/24 Wort Extractor Relationship Specialty Start Date End Date Tony Amaya MD [address] [place] [facility] [address] PCP - General Family Medicine 06/24/24 Wort Extractor Relationship Specialty Start Date End Date Tony Amaya MD [address] [place] [facility] [address] PCP - General Family Medicine 06/24/24 Wort Extractor Relationship Specialty Start Date End Date Tony Amaya MD [address] [place] [facility] [address] PCP - General Family Medicine 06/24/24 Wort Extractor Relationship Specialty Start Date End Date Tony Amaya MD [address] [place] [facility] [address] PCP - General Family Medicine 06/24/24 Wort Extractor Relationship Specialty Start Date End Date Tony Amaya MD [address] [place] [facility] [address] PCP - General Family Medicine 06/24/24 Wort Extractor Relationship Specialty Start Date End Date Tony Amaya MD [address] [place] [facility] [address] PCP - General Family Medicine 06/24/24 Wort Extractor Relationship Specialty Start Date End Date Tony Amaya MD [address] [place] [facility] [address] PCP - General Family Medicine 06/24/24 Wort Extractor Relationship Specialty Start Date End Date Tony Amaya MD [address] [place] [facility] [address] PCP - General Family Medicine 06/24/24 Wort Extractor Relationship Specialty Start Date End Date Tony Amaya MD [address] [place] [facility] [address] PCP - General Family Medicine 06/24/24 Wort Extractor Relationship Specialty Start Date End Date Tony Amaya MD [address] [place] [facility] [place] [address] PCP - General Family Medicine 06/13/24 Tony Amaya MD [address] [place] [facility] [place] [address] Referring Family Medicine 02/09/24 Wort Extractor Relationship Specialty Start Date End Date Tony Amaya MD [address] [place] [facility] [address] PCP - General Family Medicine 06/24/24 Wort Extractor Relationship Specialty Start Date End Date Tony Amaya MD [address] [place] [facility] [address] PCP - General Family Medicine 06/24/24 Wort Extractor Relationship Specialty Start Date End Date Tony Amaya MD [address] [facility], [facility] PCP - General Family Medicine 06/24/24 Wort Extractor Relationship Specialty Start Date End Date Tony Amaya MD [address] [place] [facility] [address] PCP - General Family Medicine 06/24/24 Wort Extractor Relationship Specialty Start Date End Date Tony Amaya MD [address] [facility], [facility] PCP - General Family Medicine 06/24/24 Wort Extractor Relationship Specialty Start Date End Date Tony Amaya MD [address] [facility], [facility] PCP - General Family Medicine 06/24/24 Wort Extractor Relationship Specialty Start Date End Date Tony Amaya MD [address] [facility], [facility] PCP - General Family Medicine 06/24/24 Wort Extractor Relationship Specialty Start Date End Date Tony Amaya MD [address] [place] [facility] [place] [address] PCP - General Family Medicine 06/24/24 Wort Extractor Relationship Specialty Start Date End Date Tony Amaya MD [address] [place] [facility] [address] PCP - General Family Medicine 06/24/24 Wort Extractor Relationship Specialty Start Date End Date Tony Amaya MD [address] [place] [address] PCP - General Family Medicine 06/24/24 Wort Extractor Relationship Specialty Start Date End Date Tony Amaya MD [address] [place] [address] PCP - General Family Medicine 06/24/24 Team Status: Active Member Role Status Dates Tony Amaya MD Primary Care Provider Active Start: November 14, 2024 Alejandro Maciel MD Attending Provider Active Start: November 14, 2024 Team Status: Inactive Member Role Status Dates Tony Amaya MD Attending Provider Active Sta rt: November 26, 2024 End: November 26, 2024 Wort Extractor Relationship Specialty Start Date End Date Tony Amaya MD [address] [place] [address] PCP - General [facility] Medicine 06/24/24 Team Status: Active Member [...] Other Provider Active Start: December 02, 2024 Wort Extractor Relationship Specialty Start Date End Date Tony Amaya MD PCP - General Family Medicine 06/24/24 Wort Extractor Relationship Specialty Start Date End Date Tony Amaya MD PCP - General Family Medicine 06/24/24 Wort Extractor Relationship Specialty Start Date End Date Tony Amaya MD PCP - General Family Medicine 06/24/24 Wort Extractor Relationship Specialty Start Date End Date Tony Amaya MD [address] [place] [address] PCP - General Family Medicine 05/02/25 Wort Extractor Relationship Specialty Start Date End Date Tony Amaya MD [address] [place] [address] PCP - General Family [facility] 05/02/25 Goals (unrecognized section and content) [...] or prosecute any alcohol or drug abuse patient.[facility] the event this information is protected by the Federal Confidentiality of Alcohol and Drug Abuse Patient Records regulations: The Federal rules restrict any use of the information to criminally investigate or prosecute any alcohol or drug abuse patient.[facility] the event this information is protected by the Federal Confidentiality of Alcohol and Drug Abuse Patient Records regulations: The Federal rules restrict any use of the information to criminally investigate or prosecute any alcohol or drug abuse patient.[facility] the event this information is protected by the Federal Confidentiality of Alcohol and Drug Abuse Patient Records regulations: The Federal rules restrict any use of the information to criminally investigate or prosecute any alcohol or drug abuse patient.[facility] Center[facility] the event this information is protected by the Federal Confidentiality of Alcohol and Drug Abuse Patient Records regulations: The Federal rules restrict any use of the information to criminally investigate or prosecute any alcohol or drug abuse patient.[facility] Center[facility] the event this information is protected by the Federal Confidentiality of Alcohol and Drug Abuse Patient Records regulations: The Federal rules restrict any use of the information to criminally investigate or prosecute any alcohol or drug abuse patient.[facility] Reason for Visit (unrecogniz ed section [...] BE BASED ON THE PRIMARY CLINICAL RECORDS. [facility]. provides no warranty or guarantee of the accuracy or completeness of information in this document.
[2025-07-21] MEDS: IPRATROPIUM/ALBUTEROL SULFATE 3 ML AMPUL.NEB IH ×2 (05:00→09:52)
[2025-07-21] MEDS: LEVOTHYROXINE SODIUM 125 MCG TABLET PO (05:35)
--- OUTSIDE RECORDS SUMMARY | 2025-07-21 07:42 | XMS_ITS | CCD ---
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 above: Performed By: #### L IPID, T4F, TSH3 wRFLX, [id number] #### [address] Serum or plasma total choles terol/high density lipoprotein (HDL) cholesterol mass ratOrdered By: Jaquan Babin on 12-02-2024 Cholesterol.total/Chol esterol in HDL [Mass ratio] Serum or plasma total cholesterol/high density lipoprotein (HDL) cholesterol mass rat <5.0 [facility] Thyroid Stim Hormone w/Rflxo n 12-02-2024 Thyroid Stim Hormone w/Rflx 0.34 u[iU]/mL Low 0.45-5.33 [facility] Comment on above: Performed By: #### L IPID, T4F, TSH3 wRFLX, [id number] #### [facility] [address] Thyrotropin [Units/volume] i n Serum or PlasmaOrdered By: Jaquan Babin on 12-02-2024 TSH Qn Thyrotropin [Units/v olume] in Serum or Plasma Low 0.45-5.33 [facility] Thyroxine (T4) free [Mass/vo lume] in Serum or PlasmaOrdered By: Jaquan Babin on 12-02-2024 Free T4 [Mass/Vol] Thyroxine (T4) free [Mass/volume] in Serum or Plasma 0.61-1.12 [facility] Triglyceride [Mass/volume] i n Serum or PlasmaOrdered By: Jaquan Babin on 12-02-2024 Triglyceride [Mass/Vol] Triglyceride [Mass/volume] in Serum or Plasma 0-149 [facility] Comment on above: TRIG ATP III CLASSIF ICATIONTRIG less than 150 mg/dL NormalTRIG 150-199 mg/dL Borderline highTRIG 200-500 mg/dL High TRIG greater than 500 mg/dL Very highStandard traceable to the Center for Disease Conrtrol and Prevention (CDC) test method. Vitamin D 25 Hydroxy Totalon 12-02-2024 Vitamin D 25 Hydroxy Total 23.5 ng/mL Low 30-100 [facility] Comment on above: Result Comment: MARCK MIN D STATUS 25([place])VITAMIN D RANGE (ng/mL) Deficient <20 Insufficient 20 to <30 Sufficient 30 to 100 Reference: Rhiannon Mata, Uli CLEMENTE, et al. Evaluation,treatment, and prevention of vitamin D deficiency; an Endocrine Society clinical practice guideline. JCEM. 2010; 96(7):1911-30. PERFORMED BY: [place] [address] PATHOLOGIST WOOD CUTTER DAIANA STRANGE M.D. Performed By: #### L IPID, T4F, TSH3 wRFLX, [id number] #### [address] Vitamin D+Metabolites [Mass/ volume] in Serum or PlasmaOrdered By: Jaquan Babin on 12-02-2024 Vitamin D+Metabolites [Mass/Vol] Vitamin D+Metabolites [Mass/volume] in Serum or Plasma Low 30-100 [facility] Comment on above: VITAMIN D STATUS 25( [place])VITAMIN D RANGE (ng/mL) Deficient <20 Insufficient 20 to <30Sufficient 30 to 100Reference: Rhiannon Mata, Uli CLEMENTE, et al. Evaluation,treatment, and prevention of vitamin D deficiency; an Endocrine Society clinical practice guideline. JCEM. 2010; 96(7):1911-30. Office Visiton 11-29-2024 Follow-up visit [id number] Dariel Apodaca 1965 F Date Provider Department Center 11/29/2024 [id number], ADAM ALECIA [facility] Family History Problem Relation Age of Onset Alzheimer's disease Father Family Status - Relation Status Age at Mother Alive Father Level of Service:21739 CO OFFICE/OUTPATIENT ESTABLISHED LOW MDM 20 MIN Normal [facility] EMG 1 Extremeityon Cts left minimal [facility] NVC 5-6 Nerveson 11-28-2024 Cts left minimal [facility] NVC 5-6 NervesOrdered By: Roberto Vargas on 11-28-2024 [facility] Work Phone: Urine Cultureon 11-26-2024 Bacteria identified Cx Nom (U) ORGANISM: Escherichia coli (O:ESCCOL) [place] Count <10,000 Aerobic VALENTE Charge (NMIC56) SUSCEPTIBILITY [...] RESISTANT TO ALL B-LACTAM DRUGS. PERFORMED BY: [place] [address] PATHOLOGIST WOOD CUTTER DAIANA STRANGE M.D. Normal [facility] Comment on above: Performed By: #### C UU #### [address] Urine cultureOrdered By: French Amaya on 11-26-2024 Bacteria identified Cx Nom (U) Escherichia coli Abnormal [facility] XR Hand - left 3 [facility] Result: Multiple views of left hand showed fracture through the base of the 5th metacrpal to be in unchanged position and alignment with slight increase in callus formation compared to prior x-rays. There was no other acute bony process including but not limited to fracture and/or dislocation. Impression: Healing fracture base of left 5th metacarpal [facility] XR Hand - left 3 ViewsOrdere d By: Jr. Teauge on 10-08-2024 [facility] Work Phone: XR Hand - left 3 [facility] Radiology Study observation (narrative) [facility] XR Hand - left [...] Healing fracture base of left 5th metacarpal [facility] XR Hand - left 3 ViewsOrdere d By: Jr. Teague on 09-18-2024 [facility] Work Phone: XR Knee [...] Impression: Healing fracture inferior pole right patella. [facility] No Panel Informationon 09-16 Radiology Study observation (narrative) [facility] XR Hand - left 3 [facility] Result: Xrays AP, LAT and OBL of the left hand performed on August 19, 2024 demonstrates callus formation at the base of the 5th Metacarpal. No other fractures noted, no swelling Impression Healing base of 5th MC fracture. Zulema Mackay [facility] Radiology Study observation (narrative) [facility] XR Hand - left 3 ViewsOrdere d By: Gamaliel Jorgensen on 08-19-2024 [facility] Work Phone: XR Elbow - right 2 [facility] 1 10-13-2023 Imaging Result: Xrays AP and LAT of the right elbow performed on August 07, 2024 demonstrates no swelling, no fractures appreciated, joint congruent. Impression Unremarkable xrays of the right elbow [facility] XR Knee - right 3 [facility] Result: Xrays AP, LAT and sunrise view of the right knee performed on August 07, 2024 is unremarkable for patella fracture, the patella fracture that was seen on CT scan is not visible on todays xrays. Impression Suspected healing non displaced patella fracture [facility] XR Knee - right 3 ViewsOrder ed By: Gamaliel Jorgensen on 08-13-2024 [facility] Work Phone: XR Elbow - right 2 [facility] 1 10-07-2023 Radiology Study observation (narrative) [facility] XR Knee - right 3 [facility] Radiology Study observation (narrative) [facility] XR Hand - left 3 [facility] Result: Xrays AP, LAT and OBL of the left hand performed on July 22, 2024 demonstrates healing base of the 5th MC fracture. No other fracture noted. Impressions Healing 5th MC base fracture. Zulema Mackay [facility] XR Hand - left 3 ViewsOrdere d By: Gamaliel Jorgensen on 07-23-2024 [facility] Work Phone: XR Hand - left 3 [facility] Radiology Study observation (narrative) [facility] XR Knee - right 3 [facility] Result: June 24, 2024 x-rays AP weight-bearing bilateral knees lateral and sunrise of the right knee demonstrate neutral alignment bilateral knees. The joint spaces are intact. No fractures are detected. Impression: No acute findings on x-rays of the right knee Ronald Jorgensen D.O. [facility] XR Knee - right 3 ViewsOrder ed By: Gamaliel Jorgensen on 06-25-2024 [facility] Work Phone: XR Knee - right 3 [facility] Radiology Study observation (narrative) [facility] CNOVon 06-13-2024 CNOV Office Visit (NUMBHT ) EMIGDIO APODACA ([id number]) 1965 F [facility] Date Time Provider Department 06/13/24 12:30 PM ZOILA MONAE During your visit today, we recorded the following information about you: Pulse Blood pressure Weight Height 74/minute 107/77 46.3 kg 1.523 m Zoila Monae MD 06/13/2024 1:41 PM Signed [facility] Follow up/ Established patient visit Individuals who were included in, or assisted with the encounter were: Emigdio Rodriguezegan Zoila Monae MD Chief Complaint/Issues: Emigdio Apodaca is a 58 year old female seen in the [facility] for: Staring spells. [...] that she can have it done in [place] but she would rather come here. She [...] carbonate (CALT (more content not included)... Normal [facility] EMIGD[facility]OD[facility] ([id number]) 1965 F [place] Date Time Provider Department [...] Known Allergies) Date Reviewed: 03/06/2024 Reviewed by: Aiad Phillips OCCA - Fully Assessed Prescriptions as [...] Encounter Status:Closed by IVETH SALAZAR on 09/19/24 [facility] CNOVon 03-06-2024 CNOV Office Visit (NUMBHT ) EMIGDIO APODACA ([id number]) 1965 F [place] Date Time Provider Department 03/06/24 2:00 PM ZOILA MONAE During your visit today, we recorded the following information about you: Temperature Pulse Blood pressure Weight 97.2 degrees 106/minute 101/68 45 kg Height 1.535 m Zoila Monae MD 03/06/2024 3:39 PM Signed [facility] New Patient Evaluation Consulting Provider: Tony Amaya [address] [facility] [address] The patient presents with a chief complaint [...] female seen in the [facility] for: Cognitive evaluation [...] for low IQ. She worked in a [employer] and only worked 6 months. She [...] Gait Arises (more content not included)... Normal [facility] CBC AUTO DIFFon 01-07-2023 BASO # 0.0 103/ul Normal 0.0-0.1 [facility] Comment on above: Performed By: #### C BC ####[facility] [address] [address]Dr. Shahbaz Rogel Basophils/100 WBC (Bld) 0.3 % Normal 0.2-2.0 [facility] Comment on above: Performed By: #### C BC ####[facility] [address] [address]Dr. Shahbaz Rogel EO # 0.0 103/ul Normal 0.0-0.7 [facility] Comment on above: Performed By: #### C BC ####[facility] [address] [address]Dr. Shahbaz Rogel Eosinophils/100 WBC (Bld) 0.0 % Critically low 0.9-7.0 [facility] Comment on above: Performed By: #### C BC ####[facility] [address] [address]Dr. Shahbaz Rogel Erythrocyte distribution width (RBC) [Ratio] 13.5 % Normal 11.0-15.0 [facility] Comment on above: Performed By: #### C BC ####[facility] [address] [address]Dr. Shahbaz Rogel Hematocrit (Bld) [Volume fraction] 36.4 % Normal 36.0-48.0 [facility] Comment on above: Performed By: #### C BC ####[facility] [address] [id number]. Shahbaz Rogel Hemoglobin (Bld) [Mass/Vol] 11.6 g/dL Critically low 12.0-16.0 [facility] Comment on above: Performed By: #### C BC ####[facility] [address] [id number]. Shahbaz Rogel IG # 0.06 10e3/ul Critically high 0.00-0.03 [facility] Comment on above: Performed By: #### C BC ####[facility] [address] [address]Dr. Shahbaz Rogel IG % 1.5 % Critically high 0.0-0.5 [facility] Comment on above: Performed By: #### C BC ####[facility] [address] [address]Dr. Shahbaz Rogel LYMPH # 0.7 103/ul Critically low 1.2-3.8 [facility] Comment on above: Performed By: #### C BC ####[facility] [address] [address]Dr. Shahbaz Rogel Lymphocytes/100 WBC (Bld) 16.6 % Critically low 20.5-60.0 [facility] Comment on above: Performed By: #### C BC ####[facility] [address] [address]Dr. Shahbaz Rogel MANUAL DIFF REQ NO Normal [facility] Comment on above: Performed By: #### C BC ####[facility] [address] [place], [place] [address]Dr. Shahbaz Rogel MCH (RBC) [Entitic mass] 27.6 pg Normal 26.7-34.0 [facility] Comment on above: Performed By: #### C BC ####[facility] [address] [place], [place] [address]Dr. Shahbaz Rogel MCHC (RBC) [Mass/Vol] 31.9 g/dL Normal 29.9-35.2 [facility] Comment on above: Performed By: #### C BC ####[facility] [address] [id number]. Shahbaz Rogel MCV (RBC) [Entitic vol] 86.5 fL Normal 81.0-99.0 [facility] Comment on above: Performed By: #### C BC ####[facility] [address] [id number]. Shahbaz Rogel MONO # 0.2 103/ul Critically low 0.3-0.8 [facility] Comment on above: Performed By: #### C BC ####[facility] [address] [address]Dr. Shahbaz Rogel Monocytes/100 WBC (Bld) 5.0 % Normal 1.7-12.0 [facility] Comment on above: Performed By: #### C BC ####[facility] [address] [place], [place] [address]Dr. Shahbaz Rogel NEUT # 3.1 103/ul Normal 1.4-6.5 [facility] Comment on above: Performed By: #### C BC ####[facility] [address] [place], [place] [address]Dr. Shahbaz Rogel Neutrophils/100 WBC (Bld) 76.6 % Critically high 43.0-75.0 [facility] Comment on above: Performed By: #### C BC ####[facility] [address] [place], [place] [address]Dr. Shahbaz Rogel Platelet mean volume (Bld) [Entitic vol] 9.9 fL Normal 9.5-13.5 [facility] Comment on above: Performed By: #### C BC ####[facility] [address] [place], [place] [id number]. Shahbaz Rogel PLT 194 103/ul Normal 150-450 [facility] Comment on above: Performed By: #### C BC ####[facility] [address] [place], [place] [id number]. Shahbaz Juan F RBC 4.21 106/ul Normal 4.20-5.40 [facility] Comment on above: Performed By: #### C BC ####[facility] [address] [address]Dr. Shahbaz Rogel WBC 4.0 103/ul Normal 4.0-11.0 [facility] Comment on above: Performed By: #### C BC ####[facility] [address] [address]Dr. Shahbaz Rogel PROF CHEM 8 (BAS METB)on Anion gap [Moles/Vol] 9.5 mmol/L Normal [facility] Comment on above: Performed By: #### B MP ####[facility] [address] [place], [place] [address]Dr. Shahbaz Rogel Calcium [Mass/Vol] 8.8 mg/dL Normal 8.5-10.1 [facility] Comment on above: Performed By: #### B MP ####[facility] [address] [place], [place] [address]Dr. Shahbaz Rogel Chloride [Moles/Vol] 106 mmol/L Normal 98-107 [facility] Comment on above: Performed By: #### B MP ####[facility] [address] [place], [place] [address]Dr. Shahbaz Rogel CO2 [Moles/Vol] 29.6 mmol/L Normal 21.0-32.0 [facility] Comment on above: Performed By: #### B MP ####[facility] [address] [place], [place] [address]Dr. Shahbaz Rogel Creatinine [Mass/Vol] 0.80 mg/dL Normal 0.55-1.02 [facility] Comment on above: Performed By: #### B MP ####[facility] [address] [place], [place] [address]Dr. Shahbaz Rogel EGFR-AF ALBANIAN >60 Normal >=60 [facility] Comment on above: Performed By: #### B MP ####[facility] [address] [place], [place] [address]Dr. Shahbaz Rogel EGFR-NON AF ALBANIAN >60 Normal >=60 [facility] Comment on above: Performed By: #### B MP ####[facility] [address] [place], [place] [address]Dr. Shahbaz Juan F Glucose [Mass/Vol] 137 mg/dL Critically high 74-106 [facility] Comment on above: Performed By: #### B MP ####[facility] [address] [place], [place] [address]Dr. Shahbaz Rogel Potassium [Moles/Vol] 4.1 mmol/L Normal 3.5-5.1 [facility] Comment on above: Performed By: #### B MP ####[facility] [address] [place], [place] [address]Dr. Lilajarrod Rogel Sodium [Moles/Vol] 141 mmol/L Normal 136-145 [facility] Comment on above: Performed By: #### B MP ####[facility] [address] [place], [place] [address]Dr. Shahbaz Juan F Urea nitrogen [Mass/Vol] 18.0 mg/dL Normal 7.0-18.0 [facility] Comment on above: Performed By: #### B MP ####[facility] Txkxfgisjm[address] [place], [place] [address]Dr. Shahbaz Rogel Urea nitrogen/Creatinine [Mass ratio] 22.5 mg/mg Normal [facility] Comment on above: Performed By: #### B MP ####[facility] Mneaiozntx[address] [place], [place] [address]Dr. Shahbaz Juan F CBC AUTO DIFFon 01-06-2023 BASO # 0.0 103/ul Normal 0.0-0.1 [facility] Comment on above: Performed By: #### C BC ####[facility] Qsuewvsnmf[address] [place], [place] [address]Dr. Shahbaz Rogel Basophils/100 WBC (Bld) 0.0 % Critically low 0.2-2.0 [facility] Comment on above: Performed By: #### C BC ####[facility] Qjmyhjhdke[address] [place], [place] [address]Dr. Shahbaz Rogel EO # 0.0 103/ul Normal 0.0-0.7 [facility] Comment on above: Performed By: #### C BC ####[facility] Fufziyewyq[address] [place], [place] [address]Dr. Shahbaz Rogel Eosinophils/100 WBC (Bld) 0.0 % Critically low 0.9-7.0 [facility] Comment on above: Performed By: #### C BC ####[facility] Cbzrimmati[address] [place], [place] [address]Dr. Shahbaz Rogel Erythrocyte distribution width (RBC) [Ratio] 13.8 % Normal 11.0-15.0 [facility] Comment on above: Performed By: #### C BC ####[facility] Xagbittmgu[address] [place], [place] [address]Dr. Shahbaz Rogel Hematocrit (Bld) [Volume fraction] 36.9 % Normal 36.0-48.0 [facility] Comment on above: Performed By: #### C BC ####[facility] Kgxbuhwkpn17[address] [place], [place] [address]Dr. Shahbaz Rogel Hemoglobin (Bld) [Mass/Vol] 11.8 g/dL Critically low 12.0-16.0 [facility] Comment on above: Performed By: #### C BC ####[facility] Gvldrodjqy[address] [place], [place] [address]Dr. Shahbaz Rogel IG # 0.04 10e3/ul Critically high 0.00-0.03 [facility] Comment on above: Performed By: #### C BC ####[facility] Jojqscptkl[address] [place], [place] [address]Dr. Shahbaz Rogel IG % 1.1 % Critically high 0.0-0.5 [facility] Comment on above: Performed By: #### C BC ####[facility] Wmeilkqcst22[address] [place], [place] [address]Dr. Shahbaz Rogel LYMPH # 0.5 103/ul Critically low 1.2-3.8 [facility] Comment on above: Performed By: #### C BC ####[facility] Rticdksauj134[address] [place], [place] [address]Dr. Shahbaz Rogel Lymphocytes/100 WBC (Bld) 13.9 % Critically low 20.5-60.0 [facility] Comment on above: Performed By: #### C BC ####[facility] Jcbritqhor[address] [place] [id number]. Shahbaz Rogel MANUAL DIFF REQ NO Normal [facility] Comment on above: Performed By: #### C BC ####[facility] Oxwxrprprc8360 [place] [id number]. Shahbaz Rogel MCH (RBC) [Entitic mass] 27.8 pg Normal 26.7-34.0 [facility] Comment on above: Performed By: #### C BC ####[facility] Pvpfnoaokm[address] [place] [address]Dr. Shahbaz Rogel MCHC (RBC) [Mass/Vol] 32.0 g/dL Normal 29.9-35.2 [facility] Comment on above: Performed By: #### C BC ####[facility] Jjpuczelko[address] [place] [address]Dr. Shahbaz Rogel MCV (RBC) [Entitic vol] 86.8 fL Normal 81.0-99.0 [facility] Comment on above: Performed By: #### C BC ####[facility] Zpxyxdbbui1062 [place] [id number]. Shahbaz Juan F MONO # 0.1 103/ul Critically low 0.3-0.8 [facility] Comment on above: Performed By: #### C BC ####[facility] Ofmyzkaxch[address] [place], [place] [address]Dr. Shahbaz Juan F Monocytes/100 WBC (Bld) 3.7 % Normal 1.7-12.0 [facility] Comment on above: Performed By: #### C BC ####[facility] Qzqrsmwgzp0854 [place] [id number]. Shahbaz Rogel NEUT # 3.1 103/ul Normal 1.4-6.5 [facility] Comment on above: Performed By: #### C BC ####[facility] Olagmcyfwj[address] [place], [place] [address]Dr. Shahbaz Rogel Neutrophils/100 WBC (Bld) 81.3 % Critically high 43.0-75.0 [facility] Comment on above: Performed By: #### C BC ####[facility] Pfasyklriq8524 [place] [phone]. Lilajarrod Juan F Platelet mean volume (Bld) [Entitic vol] 9.8 fL Normal 9.5-13.5 [facility] Comment on above: Performed By: #### C BC ####[facility] Rbgejtkpsx8669 [place] [phone]. Shahbaz Rogel PLT 184 103/ul Normal 150-450 [facility] Comment on above: Performed By: #### C BC ####[facility] Ydnhyxeghg8884 [place] [address]Dr. Shahbaz Rogel RBC 4.25 106/ul Normal 4.20-5.40 [facility] Comment on above: Performed By: #### C BC ####[facility] Vjieydhoag5724 [place] [address]Dr. Shahbaz Rogel WBC 3.8 103/ul Critically low 4.0-11.0 [facility] Comment on above: Performed By: #### C BC ####[facility] Ofjydjwtmn[address] [place], [place] [address]Dr. Shahbaz Rogel PROF CHEM 8 (BAS METB)on Anion gap [Moles/Vol] 9.2 mmol/L Normal [facility] Comment on above: Performed By: #### B MP ####[facility] Hqnursjbjf057[address] [place], [place] [address]Dr. Shahbaz Rogel Calcium [Mass/Vol] 8.6 mg/dL Normal 8.5-10.1 [facility] Comment on above: Performed By: #### B MP ####[facility] Prcwmccejx9632 [place] [address]Dr. Shahbaz Rogel Chloride [Moles/Vol] 107 mmol/L Normal 98-107 [facility] Comment on above: Performed By: #### B MP ####[facility] Gldtxnkvii3555 [place] [address]Dr. Shahbaz Rogel CO2 [Moles/Vol] 29.3 mmol/L Normal 21.0-32.0 [facility] Comment on above: Performed By: #### B MP ####[facility] Ckgruxoqxb1704 [place] [id number]. Shabhaz Rogel Creatinine [Mass/Vol] 0.79 mg/dL Normal 0.55-1.02 [facility] Comment on above: Performed By: #### B MP ####[facility] Rncfjzbjmx0392 [place] [phone]. Shahbaz Rogel EGFR-AF ALBANIAN >60 Normal >=60 [facility] Comment on above: Performed By: #### B MP ####[facility] Tqkjrcsdnu3427 [place] [address]Dr. Shahbaz Rogel EGFR-NON AF ALBANIAN >60 Normal >=60 [facility] Comment on above: Performed By: #### B MP ####[facility] Qgoqzudihq[address] [place], [place] [address]Dr. Shahbaz Rogel Glucose [Mass/Vol] 159 mg/dL Critically high 74-106 [facility] Comment on above: Performed By: #### B MP ####[facility] Cbcdnvnflz[address] [place], [place] [address]Dr. Lilajarrod Juan F Potassium [Moles/Vol] 3.5 mmol/L Normal 3.5-5.1 [facility] Comment on above: Performed By: #### B MP ####[facility] Nsvupdpzgh[address] [place], [place] [address]Dr. Lilajarrod Juan F Sodium [Moles/Vol] 142 mmol/L Normal 136-145 [facility] Comment on above: Performed By: #### B MP ####[facility] Mhsnorqiud[address] [place], [place] [address]Dr. Lilajarrod Juan F Urea nitrogen [Mass/Vol] 21.0 mg/dL Critically high 7.0-18.0 [facility] Comment on above: Performed By: #### B MP ####[facility] Ngxrpqdpjr7[address] [place], [place] [address]Dr. Lilajarrod Juan F Urea nitrogen/Creatinine [Mass ratio] 26.6 mg/mg Normal [facility] Comment on above: Performed By: #### B MP ####[facility] Nyyfwjcjbb[address] [place], [place] [address]Dr. Shahbaz Juan F XR CHEST 2 Von 01-06-2023 XR CHEST 2 V Normal [facility] CBC AUTO DIFFon 01-05-2023 BASO # 0.0 103/ul Normal 0.0-0.1 [facility] Comment on above: Performed By: #### C BC ####[facility] Vtizgrpfai4682 [place] [address]Dr. Shahbaz Rogel Basophils/100 WBC (Bld) 0.2 % Normal 0.2-2.0 [facility] Comment on above: Performed By: #### C BC ####[facility] Detjrkthiv3432 [place] [address]Dr. Shahbaz Rogel EO # 0.0 103/ul Normal 0.0-0.7 [facility] Comment on above: Performed By: #### C BC ####[facility] Vijpswscwu6346 [place] [address]Dr. Shahbaz Rogel Eosinophils/100 WBC (Bld) 0.0 % Critically low 0.9-7.0 [facility] Comment on above: Performed By: #### C BC ####[facility] Mfvpnzlwla[address] [place], [place] [address]Dr. Lilajarrod Rogel Erythrocyte distribution width (RBC) [Ratio] 13.6 % Normal 11.0-15.0 [facility] Comment on above: Performed By: #### C BC ####[facility] Yblhsdyeqt[address] [place], [place] [address]Dr. Shahbaz Rogel Hematocrit (Bld) [Volume fraction] 36.6 % Normal 36.0-48.0 [facility] Comment on above: Performed By: #### C BC ####[facility] Tpdjcwmszh1826 [place] [address]Dr. Shahbaz Rogel Hemoglobin (Bld) [Mass/Vol] 11.6 g/dL Critically low 12.0-16.0 [facility] Comment on above: Performed By: #### C BC ####[facility] Wejqjkybcc7404 [place] [address]Dr. Shahbaz Rogel IG # 0.03 10e3/ul Normal 0.00-0.03 [facility] Comment on above: Performed By: #### C BC ####[facility] Zpuiwjzrvq7791 [place] [address]Dr. Shahbaz Rogel IG % 0.5 % Normal 0.0-0.5 [facility] Comment on above: Performed By: #### C BC ####[facility] Mscikejvcd2992 [place] [address]DrChen Rogel LYMPH # 0.6 103/ul Critically low 1.2-3.8 [facility] Comment on above: Performed By: #### C BC ####[facility] Bkcjkytvaj[address] [place], [place] [address]Dr. Shahbaz Rogel Lymphocytes/100 WBC (Bld) 10.7 % Critically low 20.5-60.0 [facility] Comment on above: Performed By: #### C BC ####[facility] Dupugpbcor0913[address] [place], [place] [address]Dr. Shahbaz Rogel MANUAL DIFF REQ NO Normal [facility] Comment on above: Performed By: #### C BC ####[facility] Dxfdytlzvi69[address] [place], [place] [address]Dr. Lilajarrod Rogel MCH (RBC) [Entitic mass] 27.7 pg Normal 26.7-34.0 [facility] Comment on above: Performed By: #### C BC ####[facility] Xkdmyoqdrs[address] [place], [place] [address]Dr. Lilajarrod Rogel MCHC (RBC) [Mass/Vol] 31.7 g/dL Normal 29.9-35.2 [facility] Comment on above: Performed By: #### C BC ####[facility] Dgjbayvlco[address] [place], [place] [address]DrChen Rogel MCV (RBC) [Entitic vol] 87.4 fL Normal 81.0-99.0 [facility] Comment on above: Performed By: #### C BC ####[facility] Extnytdtfa[address] [place], [place] [address]DrChen Rogel MONO # 0.1 103/ul Critically low 0.3-0.8 [facility] Comment on above: Performed By: #### C BC ####[facility] Hayexzslgw6140 [place] [phone]. Shahbaz Rogel Monocytes/100 WBC (Bld) 2.5 % Normal 1.7-12.0 [facility] Comment on above: Performed By: #### C BC ####[facility] Xqtusmqijl8488 [place] [phone]. Shahbaz Rogel NEUT # 4.8 103/ul Normal 1.4-6.5 [facility] Comment on above: Performed By: #### C BC ####[facility] Bmehhqpgbv7247 [place] [phone]. Shahbaz Rogel Neutrophils/100 WBC (Bld) 86.1 % Critically high 43.0-75.0 [facility] Comment on above: Performed By: #### C BC ####[facility] Eelhqnhahq4637 [place] [address]Dr. Shahbaz Rogel Platelet mean volume (Bld) [Entitic vol] 10.0 fL Normal 9.5-13.5 [facility] Comment on above: Performed By: #### C BC ####[facility] Amrlxbrdjn5626 [place] [phone]. Shahbaz Rogel PLT 193 103/ul Normal 150-450 [facility] Comment on above: Performed By: #### C BC ####[facility] Acuqzzcxpe5682 [place] [phone]. Shahbaz Rogel RBC 4.19 106/ul Critically low 4.20-5.40 [facility] Comment on above: Performed By: #### C BC ####[facility] Iyloiiupjg9259 [place] [phone]. Shahbaz Rogel WBC 5.6 103/ul Normal 4.0-11.0 [facility] Comment on above: Performed By: #### C BC ####[facility] Yggxlthdxo6910 [place] [phone] Lilajarrod Rogel PROF CHEM 8 (BAS METB)on Anion gap [Moles/Vol] 12.7 mmol/L Normal Th e [facility] Comment on above: Performed By: #### B MP ####[facility] Pmfjahujhp4922 [place] [address]Dr. Shahbaz Rogel Calcium [Mass/Vol] 8.8 mg/dL Normal 8.5-10.1 [facility] Comment on above: Performed By: #### B MP ####[facility] Uyepgqivke8817 [place] [address]Dr. Shahbaz Rogel Chloride [Moles/Vol] 107 mmol/L Normal 98-107 [facility] Comment on above: Performed By: #### B MP ####[facility] Hngmyxhzvf3133 [place] [address]Dr. Shahbaz Rogel CO2 [Moles/Vol] 26.9 mmol/L Normal 21.0-32.0 [facility] Comment on above: Performed By: #### B MP ####[facility] Iwecybumon[address] [place], [place] [address]Dr. Shahbaz Rogel Creatinine [Mass/Vol] 0.81 mg/dL Normal 0.55-1.02 [facility] Comment on above: Performed By: #### B MP ####[facility] Stywwbwogl[address] [place], [place] [address]Dr. Shahbaz Rogel EGFR-AF ALBANIAN >60 Normal >=60 [facility] Comment on above: Performed By: #### B MP ####[facility] Spzjkjbcaf8672 [place] [address]Dr. Shahbaz Rogel EGFR-NON AF ALBANIAN >60 Normal >=60 [facility] Comment on above: Performed By: #### B MP ####[facility] Rfgoustijq9106 [place] [address]Dr. Shahbaz Rogel Glucose [Mass/Vol] 144 mg/dL Critically high 74-106 [facility] Comment on above: Performed By: #### B MP ####[facility] Nfsglydssw7925 [place] [address]Dr. Shahbaz Rogel Potassium [Moles/Vol] 3.6 mmol/L Normal 3.5-5.1 [facility] Comment on above: Performed By: #### B MP ####[facility] Jcsqewnnjn6925 [place] [address]Dr. Shahbaz Rogel Sodium [Moles/Vol] 143 mmol/L Normal 136-145 [facility] Comment on above: Performed By: #### B MP ####[facility] Lfmhjnimod6335 [place] [address]Dr. Shahbaz Rogel Urea nitrogen [Mass/Vol] 20.0 mg/dL Critically high 7.0-18.0 [facility] Comment on above: Performed By: #### B MP ####[facility] Aliwaxvgsb18[address] [place], [place] [address]Dr. Shahbaz Rogel Urea nitrogen/Creatinine [Mass ratio] 24.7 mg/mg Normal [facility] Comment on above: Performed By: #### B MP ####[facility] Vzoldufics[address] [place], [place] [address]Dr. Shahbaz Juan F CBC W MANUAL DIFFon 01-05-20 23 ATYPICAL LYMPH # Normal [facility] Comment on above: Performed By: #### C BCMAN ####[facility] Iasuczcghv[address] [place], [place] [address]Dr. Shahbaz Rogel ATYPICAL LYMPH % Normal [facility] Comment on above: Performed By: #### C BCMAN ####[facility] Grskiskuyz[address] [place], [place] [address]Dr. Shahbaz Rogel BAND # 0.0 103/ul Normal 0.0-0.3 [facility] Comment on above: Performed By: #### C BCMAN ####[facility] Cbkwakfyfp[address] [place], [place] [address]Dr. Shahbaz Rogel BAND % 0 % Normal 0-5 [facility] Comment on above: Performed By: #### C BCMAN ####[facility] Isjtcrlyac5024[address] [place], [place] [address]Dr. Lilajarrod Rogel BASOM # 0.00 103/ul Normal 0.00-0.10 [facility] Comment on above: Performed By: #### C BCMAN ####[facility] Sinvthjran[address]75[address] [place], [place] [address]Dr. Shahbaz Rogel BASOM % 0.0 % Critically low 0.2-2.0 [facility] Comment on above: Performed By: #### C BCMAN ####[facility] Vcpzxrsaaf3573 [place] [address]Dr. Shahbaz Rogel BLAST # Normal [facility] Comment on above: Performed By: #### C BCMAN ####[facility] Msfgcpyvol3194 [place] [address]Dr. Shahbaz Rogel BLAST % Normal [facility] Comment on above: Performed By: #### C BCMAN ####[facility] Qafobpaiau0460 [place] [address]Dr. Shahbaz Rogel CORRECTED WBC Normal 4.0-11.0 [facility] Comment on above: Performed By: #### C BCMAN ####[facility] Oxglvpuirw97[address] [place], [place] [address]Dr. Shahbaz Rogel EOS # 0.00 103/ul Normal 0.00-0.70 [facility] Comment on above: Performed By: #### C BCMAN ####[facility] Pmvuicamqt[address] [place], [place] [address]Dr. Shahbaz Rogel EOS% 0.0 % Critically low 0.9-7.0 [facility] Comment on above: Performed By: #### C BCMAN ####[facility] Knnoiqmhal015[address] [place], [place] [address]Dr. Shahbaz Rogel HCT 36.5 % Normal 36.0-48.0 [facility] Comment on above: Performed By: #### C BCMAN ####[facility] Plmtxizwuw264[address] [place], [place] [address]Dr. Shahbaz Rogel HGB 11.8 g/dl Critically low 12.0-16.0 [facility] Comment on above: Performed By: #### C BCMAN ####[facility] Hngnfizeso0034[address] [place], [place] [address]Dr. Shahbaz Rogel LYMPHM # 0.42 103/ul Critically low 1.20-3.80 [facility] Comment on above: Performed By: #### C BCMAN ####[facility] Pcvqfoubdt6042 [place] [id number]. Shahbaz Rogel LYMPHM% 12.0 % Critically low 20.5-60.0 [facility] Comment on above: Performed By: #### C CAIN ####[facility] Ktvjiptiyc5380 [place] [address]Dr. Shahbaz Rogel MCH 28.0 pg Normal 26.7-34.0 [facility] Comment on above: Performed By: #### C CAIN ####[facility] Mxcptnabpv2204 [place] [address]Dr. Shahbaz Rogel MCHC 32.3 g/dl Normal 29.9-35.2 [facility] Comment on above: Performed By: #### C CAIN ####[facility] Qkybfebjaw[address] [place], [place] [address]Dr. Shahbaz Rogel MCV 86.7 fL Normal 81.0-99.0 [facility] Comment on above: Performed By: #### C CAIN ####[facility] Okqpzxtmvt995[address] [place], [place] [address]Dr. Shahbaz Rogel METAMYELOCYTE # Normal [facility] Comment on above: Performed By: #### C CAIN ####[facility] Xicmzjekay[address] [place], [place] [address]Dr. Shahbaz Rogel METAMYELOCYTE % Normal [facility] Comment on above: Performed By: #### C CAIN ####[facility] Rtzlgfzyyi[address] [place], [place] [address]Dr. Shahbaz Rogel MONOM# 0.07 103/ul Critically low 0.30-0.80 [facility] Comment on above: Performed By: #### C CAIN ####[facility] Btbpnefcmz4731 [place] [address]Dr. Shahbaz Rogel MONOM% 2.0 % Normal 1.7-12.0 [facility] Comment on above: Performed By: #### C CAIN ####[facility] Jnfgocirxj2930 [place] [address]Dr. Shahbaz Rogel MPV 9.9 fL Normal 9.5-13.5 [facility] Comment on above: Performed By: #### C BCBRICE ####[facility] Opeoghkkzw1395 [place] [phone]. Shahbaz Rogel MYELOCYTE # Normal [facility] Comment on above: Performed By: #### C CAIN ####[facility] Bpammwsdjk3083 [place] [phone]. Shahbaz Rogel MYELOCYTE % Normal [facility] Comment on above: Performed By: #### C BCBRICE ####[facility] Xlqpxyjupl2401 [place] [phone]. Shahbaz Rogel NRBC Normal [facility] Comment on above: Performed By: #### C CAIN ####[facility] Sftxsqvgmh4886 [place] [address]Dr. Shahbaz Rogel PLT 178 103/ul Normal 150-450 [facility] Comment on above: Performed By: #### C CAIN ####[facility] Uhbksricns6064 [place] [phone]. Shahbaz Rogel RBC 4.21 106/ul Normal 4.20-5.40 [facility] Comment on above: Performed By: #### C CAIN ####[facility] Biauouqddd0658 [place] [phone]. Shahbaz Rogel RDW 13.2 % Normal 11.0-15.0 [facility] Comment on above: Performed By: #### C CAIN ####[facility] Qkmofepmkb[address] [place], [place] [id number]. Shahbaz Rogel SEG # 3.01 103/ul Normal 1.40-6.50 [facility] Comment on above: Performed By: #### C CAIN ####[facility] Olbnxymppc4999 [place] [phone]. Shahbaz Rogel SEG % 86.0 % Critically high 43.0-75.0 [facility] Comment on above: Performed By: #### C CAIN ####[facility] Ujqfjahilc5277 [place] [phone]. Shahbaz Rogel WBC 3.5 103/ul Critically low 4.0-11.0 [facility] Comment on above: Performed By: #### C BCMAN ####[facility] Wqhztmsjbp0555 [place] [address]Dr. Shahbaz Rogel PROF CHEM 8 (BAS METB)on Anion gap [Moles/Vol] 10.5 mmol/L Normal Th [facility] Comment on above: Performed By: #### B MP ####[facility] V[address]wjhjmivx[address] [place], [place] [address]Dr. Shahbaz Rogel Calcium [Mass/Vol] 8.7 mg/dL Normal 8.5-10.1 [facility] Comment on above: Performed By: #### B MP ####[facility] Qltpifcuiy[address] [place], [place] [address]Dr. Shahbaz Rogel Chloride [Moles/Vol] 108 mmol/L Critically high 98-107 [facility] Comment on above: Performed By: #### B MP ####[facility] Zwjbectwcc[address] [place], [place] [address]Dr. Shabhaz Rogel CO2 [Moles/Vol] 25.2 mmol/L Normal 21.0-32.0 [facility] Comment on above: Performed By: #### B MP ####[facility] [facility] Ybpizvllyx[address] [place], [place] [address]Dr. Shahbaz Rogel Creatinine [Mass/Vol] 0.77 mg/dL Normal 0.55-1.02 [facility] Comment on above: Performed By: #### B MP ####[facility] Hlikcvzthc[address] [place], [place] [address]Dr. Shahbaz Rogel EGFR-AF ALBANIAN >60 Normal >=60 [facility] Comment on above: Performed By: #### B MP ####[facility] Yvkwgctalw[address] [place], [place] [address]Dr. Shahbaz Rogel EGFR-NON AF ALBANIAN >60 Normal >=60 [facility] Comment on above: Performed By: #### B MP ####[facility] Vokquismoj[address] [place], [place] [address]Dr. Shahbaz Rogel Glucose [Mass/Vol] 169 mg/dL Critically high 74-106 [facility] Comment on above: Performed By: #### B MP ####[facility] Cscnbhzsii[address] [place], [place] [address]Dr. Shahbaz Rogel Potassium [Moles/Vol] 3.7 mmol/L Normal 3.5-5.1 [facility] Comment on above: Performed By: #### B MP ####[facility] Wfxtvxxkhk[address] [place], [place] [address]Dr. Shahbaz Rogel Sodium [Moles/Vol] 140 mmol/L Normal 136-145 [facility] Comment on above: Performed By: #### B MP ####[facility] Thrdpalkvp67[address] [place], [place] [address]Dr. Shahbaz Rogel Urea nitrogen [Mass/Vol] 14.0 mg/dL Normal 7.0-18.0 [facility] Comment on above: Performed By: #### B MP ####[facility] Foirlhxhsn[address] [place], [place] [address]Dr. Shahbaz Rogel Urea nitrogen/Creatinine [Mass ratio] 18.2 mg/mg Normal [facility] Comment on above: Performed By: #### B MP ####[facility] Bpsysrclnu[address] [place], [place] [address]Dr. Shahbaz Rogel RESPIRATORY PANEL PLUSon Adenovirus Not detected Normal NOT DETECTED [facility] Comment on above: Performed By: #### R SPLUS ####[facility] Cexmckuroh[address] [place], [place] [address]Dr. Shahbaz Rogel B. Parapertusis Not detected Normal NOT DETECTED [facility] Comment on above: Performed By: #### R SPLUS ####[facility] Flwegsnnjf509[address] [place], [place] [address]Dr. Shahbaz Rogel B. Pertussis Not detected Normal NOT DETECTED [facility] Comment on above: Performed By: #### R SPLUS ####[facility] Ykluqneucp9[address] [place], [place] [address]Dr. Shahbaz Rogel Chlamydia Pneumoniae Not detected Normal NOT DETECTED [facility] Comment on above: Performed By: #### R SPLUS ####[facility] Ifogevncjp856[address] [place], [place] [address]Dr. Shahbaz Rogel Coronavirus 229E Not detected Normal NOT DETECTED [facility] Comment on above: Performed By: #### R SPLUS ####[facility] [address]vap[address] [place] [address]Dr. Shahbaz [facility] Coronavirus HKU1 Not detected Normal NOT DETECTED [facility] Comment on above: Performed By: #### R SPLUS ####[facility] Srczrfrjot[address] [place] [address]Dr. Shahbaz [facility] Coronavirus NL63 Not detected Normal NOT DETECTED [facility] Comment on above: Performed By: #### R SPLUS ####[facility] Ckcggrriic4526[address] [place], [place] [address]Dr. Shahbaz [facility] Coronavirus OC43 Not detected Normal NOT DETECTED [facility] Comment on above: Performed By: #### R SPLUS ####[facility] Oetszuatwc660[address] [place], [place] [address]Dr. Shahbaz Rogel Influenza A H1 Not detected Normal NOT DETECTED [facility] Comment on above: Performed By: #### R SPLUS ####[facility] Gamzoqmciw8[address] [place], [place] [address]Dr. Shahbaz Rogel Influenza A H1 2009 Not detected Normal NOT DETECTED [facility] Comment on above: Performed By: #### R SPLUS ####[facility] Gfedgljgpo1250[address] [place], [place] [address]Dr. Shahbaz [facility] Influenza A H3 Not detected Normal NOT DETECTED [facility] Comment on above: Performed By: #### R SPLUS ####[facility] Nzxhwppjpx69[address] [place], [place] [address]Dr. Shahbaz Rogel Influenza B Not detected Normal NOT DETECTED [facility] Comment on above: Performed By: #### R SPLUS ####[facility] Cpodhzjuxo[address] [place], [place] [address]Dr. Shahbaz Rogel Metapneumovirus Detected Abnormal NOT DETECTED [facility] Comment on above: Performed By: #### R SPLUS ####[facility] Caecwgjkkj337[address] [place], [place] [address]Dr. Shahbaz Rogel Mycoplas. Pneumoniae Not detected Normal NOT DETECTED [facility] Comment on above: Performed By: #### R SPLUS ####[facility] Pdbpzuftzl[address] [place], [place] [address]Dr. Shahbaz Rogel Parainfluenza 1 Not detected Normal NOT DETECTED [facility] Comment on above: Performed By: #### R SPLUS ####[facility] Nucrfzhggq7475[address] [place], [place] [address]Dr. Shahbaz Rogel Parainfluenza 2 Not detected Normal NOT DETECTED [facility] Comment on above: Performed By: #### R SPLUS ####[facility] Dzoteipqjs3927[address] [place], [place] [address]Dr. Shahbaz Rogel Parainfluenza 3 Not detected Normal NOT DETECTED [facility] Comment on above: Performed By: #### R SPLUS ####[facility] Jvbkthbkmf55[address] [place], [place] [address]Dr. Shahbaz Rogel Parainfluenza 4 Not detected Normal NOT DETECTED [facility] Comment on above: Performed By: #### R SPLUS ####[facility] Kcdefkfxqi3339[address] [place], [place] [address]Dr. Shahbaz Rogel Rhino/Enterovirus Not detected Normal NOT DETECTED [facility] Comment on above: Performed By: #### R SPLUS ####[facility] Hkqteaxira04[address] [place], [place] [address]Dr. Shahbaz Rogel RP2 Header 1 RESPIRATORY PANEL: VIRUSES Normal [facility] Comment on above: Performed By: #### R SPLUS ####[facility] Awgvpdnhwh358[address] [place], [place] [address]Dr. Shahbaz Rogel RP2 Header 2 RESPIRATORY PANEL: BACTERIA Normal [facility] Comment on above: Performed By: #### R SPLUS ####[facility] Nhixlagnkx01[address] [place], [place] [address]Dr. Shahbaz Rogel RSV Not detected Normal NOT DETECTED [facility] Comment on above: Performed By: #### R SPLUS ####[facility] Oslxhmbrby108[address] [place], [place] [address]Dr. Shahbaz Rogel SARS-CoV-2 (COVID-19) RNA PAVAN+probe Ql (Unsp spec) Not detected Normal NOT DETECTED [facility] Comment on above: Performed By: #### R SPLUS ####[facility] [address]rneanac[address] [place] [address]Dr. Shahbaz Juan F CARDIAC ROSALINA 3-6on 3 CK [Catalytic activity/Vol] 148 U/L Normal 26-192 [facility] Comment on above: Performed By: #### C MREP ####[facility] Urifxkdygk[address] [place] [address]Dr. Shahbaz Juan F CK.MB [Mass/Vol] 0.84 ng/mL Normal <=3.60 [facility] Comment on above: Performed By: #### C MREP ####[facility] Ebaknspucr[address] [place], [place] [address]Dr. Shahbaz Rogel HSTROP 6.4 pg/mL Normal 4.0-51.3 [facility] Comment on above: Result Comment: CUT- OFF POINTS HAVE BEEN ESTABLISHED BASED ON THE FOURTH UNIVERSAL DEFINITIONS OF MYOCARDIALINFARCTION. THE UPPER REFERENCE LIMIT (URL) OF TROPONIN, DEFINED THE 99TH PERCENTILE OFcTnI DISTRIBUTION IN A REFERENCE POPULATION, HAS BEEN CONFIRMED THE DECISION THRESHOLDFOR MT DIAGNOSIS. Performed By: #### C MREP ####[facility] Ytukldswfe[address] [place], [place] [address]Dr. Shahbaz Rogel CBC W MANUAL DIFFon 01-04-20 23 ATYPICAL LYMPH # Normal [facility] Comment on above: Performed By: #### C CAIN ####[facility] Wqzwnnclsh[address] [place], [place] [address]Dr. Shahbaz Rogel ATYPICAL LYMPH % Normal [facility] Comment on above: Performed By: #### C BCMAN ####[facility] [address]qwx[address] [place] [address]Dr. Shahbaz Rogel BAND # 0.0 103/ul Normal 0.0-0.3 [facility] Comment on above: Performed By: #### C CAIN ####[facility] Xozhefitub[address] [place], [place] [address]Dr. Shahbaz Rogel BAND % 0 % Normal 0-5 [facility] Comment on above: Performed By: #### C CAIN ####[facility] [address]wuvxvwe[address] [place] [id number]. Shahbaz Rogel BASOM # 0.00 103/ul Normal 0.00-0.10 [facility] Comment on above: Performed By: #### C BCMAN ####[facility] Aupvlsktox[address] [place] [id number]. Shahbaz Rogel BASOM % 0.0 % Critically low 0.2-2.0 [facility] Comment on above: Performed By: #### C BCMAN ####[facility] Xbjfdikhje[address] [place] [id number]. Shahbaz Rogel BLAST # Normal [facility] Comment on above: Performed By: #### C BCBRICE ####[facility] Mdeatcvcur[address] [place] [address]Dr. Shahbaz Rogel BLAST % Normal [facility] Comment on above: Performed By: #### C CAIN ####[facility] Tprpedpfvg[address] [place], [place] [address]Dr. Shahbaz Rogel CORRECTED WBC Normal 4.0-11.0 [facility] Comment on above: Performed By: #### C CAIN ####[facility] Maweszgpgo[address] [place], [place] [address]Dr. Shahbaz Rogel EOS # 0.02 103/ul Normal 0.00-0.70 [facility] Comment on above: Performed By: #### C CAIN ####[facility] Lymroeeadi[address] [place] [address]Dr. Shahbaz Rogel EOS% 1.0 % Normal 0.9-7.0 [facility] Comment on above: Performed By: #### C BCBRICE ####[facility] Eskfhotjcz[address] [place] [address]Dr. Shahbaz Rogel HCT 37.5 % Normal 36.0-48.0 [facility] Comment on above: Performed By: #### C BCBRICE ####[facility] Mvtnptyhyp[address] [place], [place] [address]Dr. Shahbaz Rogel HGB 12.0 g/dl Normal 12.0-16.0 [facility] Comment on above: Performed By: #### C CAIN ####[facility] Lydanqgvyq[address] [place] [phone]. Shahbaz Rogel LYMPHM # 0.21 103/ul Critically low 1.20-3.80 [facility] Comment on above: Performed By: #### C CAIN ####[facility] Eeiscblhvb[address] [place] [phone]. Shahbaz Rogel LYMPHM% 13.0 % Critically low 20.5-60.0 [facility] Comment on above: Performed By: #### C CAIN ####[facility] Bgekjsqvlc[address] [place] [phone]. Shahbaz Rogel MCH 27.8 pg Normal 26.7-34.0 [facility] Comment on above: Performed By: #### C CAIN ####[facility] [address]dunygbvsy[address] [place] [address]Dr. Shahbaz Rogel MCHC 32.0 g/dl Normal 29.9-35.2 [facility] Comment on above: Performed By: #### C CAIN ####[facility] Yylwavwpnf[address] [place] [phone]. Shahbaz Rogel MCV 86.8 fL Normal 81.0-99.0 [facility] Comment on above: Performed By: #### Cheri BARLOW ####[facility] Xjrygqxlny16[address] [place] [phone]. Shahbaz Rogel METAMYELOCYTE # Normal [facility] Comment on above: Performed By: #### C CAIN ####[facility] Rwtdblbsuu6[address] [place] [phone]. Shahbaz Rogel METAMYELOCYTE % Normal [facility] Comment on above: Performed By: #### C CAIN ####[facility] Yzhhxptvmr8[address] [place] [phone]. Shahbaz Rogel MONOM# 0.02 103/ul Critically low 0.30-0.80 [facility] Comment on above: Performed By: #### C CAIN ####[facility] Lttyuawvrg[address] [place] [phone]. Shahbaz Rogel MONOM% 1.0 % Critically low 1.7-12.0 [facility] Comment on above: Performed By: #### C CAIN ####[facility] Scobuhgubn[address] [place] [phone]. Shahbaz Rogel MPV 9.5 fL Normal 9.5-13.5 [facility] Comment on above: Performed By: #### C CAIN ####[facility] Cogsepfets[address] [place] [phone]. Shahbaz Rogel MYELOCYTE # Normal [facility] Comment on above: Performed By: #### C CAIN ####[facility] Aepkedlakq[address] [place] [phone]. Shahbaz Rogel MYELOCYTE % Normal [facility] Comment on above: Performed By: #### C CAIN ####[facility] Neuswantwb[address] [place], [place] [address]Dr. Shahbaz Rogel NRBC Normal [facility] Comment on above: Performed By: #### C CAIN ####[facility] Jjqumsnvyf[address] [place] [phone]. Shahbaz Rogel PLT 173 103/ul Normal 150-450 [facility] Comment on above: Performed By: #### C CAIN ####[facility] Udwexamatd[address] [place], [place] [id number]. Shahbaz Rogel RBC 4.32 106/ul Normal 4.20-5.40 [facility] Comment on above: Performed By: #### C CAIN ####[facility] Qevgxabiwi38[address] [place] [phone]. Shahbaz Rogel RDW 13.1 % Normal 11.0-15.0 [facility] Comment on above: Performed By: #### C CAIN ####[facility] Dfqxeinpsc[address] [place], [place] [id number]. Shahbaz Rogel SEG # 1.36 103/ul Critically low 1.40-6.50 [facility] Comment on above: Performed By: #### C CAIN ####[facility] Dghhkybglf[address] [place], [place] [address]Dr. Shahbaz Rogel SEG % 85.0 % Critically high 43.0-75.0 [facility] Comment on above: Performed By: #### C CHANELMAN ####[facility] Zfjfqdsjsi[address] [place], [place] [address]Dr. Shahbaz Rogel WBC 1.6 103/ul Critically low 4.0-11.0 [facility] Comment on above: Performed By: #### C CAIN ####[facility] Tivxlpjsgt240[address] [place], [place] [address]Dr. Shahbaz Rogel CT CHEST WO CONon 01-03-2023 CT CHEST WO CON Normal [facility] ER URINE PROFILEon 3 Bilirubin Ql (U) Negative Normal NEGATIVE [facility] Comment on above: Performed By: #### E RUR ####[facility] Qaxqlmvpgb294[address] [place], [place] [address]Dr. Shahbaz Rogel Clarity (U) CLEAR Normal CLEAR [facility] Comment on above: Performed By: #### E RUR ####[facility] Aragwsynbl[address] [place], [place] [address]Dr. Shahbaz Rogel Color (U) LT. YELLOW Normal YELLOW [facility] Comment on above: Performed By: #### E RUR ####[facility] Mlrhsuxdhk[address] [place], [place] [address]Dr. Shahbaz Rogel ERUAHD A micrscopic examina tion will be performed if indicated. Normal [facility] Comment on above: Performed By: #### E RUR ####[facility] Cjdakgwfhd9135[address] [place], [place] [address]Dr. Shahbaz Rogel Glucose Ql (U) Negative Normal NEGATIVE [facility] Comment on above: Performed By: #### E RUR ####[facility] Wphzdiueab6[address] [place], [place] [address]Dr. Shahbaz Rogel Hemoglobin Ql (U) Negative Normal NEGATIVE [facility] Comment on above: Performed By: #### E RUR ####[facility] Mixfttlcbj9759[address] [place], [place] [address]Dr. Shahbaz Rogel Ketones Ql (U) Negative Normal NEGATIVE [facility] Comment on above: Performed By: #### E RUR ####[facility] Wiyxpgbjmt[address] [place] [address]Dr. Shahbaz Rogel LEUKOCYTES Negative Normal NEGATIVE [facility] Comment on above: Performed By: #### E RUR ####[facility] Ymivijhvls[address] [place] [address]Dr. Shahbaz Rogel Nitrite Ql (U) Negative Normal NEGATIVE [facility] Comment on above: Performed By: #### E RUR ####[facility] Dgxvteezlz[address] [place], [place] [address]Dr. Shahbaz Rogel pH (U) 6.0 [pH] Normal 5-9 [facility] Comment on above: Performed By: #### E RUR ####[facility] Vgxjmrqlxa[address] [place], [place] [address]Dr. Shahbaz Rogel SPEC GRAVITY <=1.005 Abnormal 1.005-<=1. 025 [facility] Comment on above: Performed By: #### E RUR ####[facility] Amsdewnlau[address] [place], [place] [address]Dr. Shahbaz Rogel UA PROTEIN Negative Normal NEGATIVE/ TRACE [facility] Comment on above: Performed By: #### E RUR ####[facility] Fkjhfljwdn74[address] [place], [place] [address]Dr. Shahbaz Rogel UR MICRO IND NOT INDICATED Normal [facility] Comment on above: Performed By: #### E RUR ####[facility] Virzeoccbc87[address] [place], [place] [address]Dr. Shahbaz Rogel Urobilinogen Qn (U) 0.2 {Melida'U}/dL Normal 0.2 - 1. 0 [facility] Comment on above: Performed By: #### E RUR ####[facility] Rvzuakjsnn75[address] [place], [place] [address]Dr. Shahbaz Juan F LACTATE/LACTIC ACIDon 2022 Lactate [Moles/Vol] 1.5 mmol/L Normal 0.4-2.0 [facility] Comment on above: Performed By: #### L ACT ####[facility] Qtgxnauwcv[address] [place] [address]Dr. Shahbaz Juan F PROF CHEM 8 (BAS METB)on Anion gap [Moles/Vol] 11.6 mmol/L Normal [facility] Comment on above: Performed By: #### B MP ####[facility] Mvmprslwdb5[address] [place] [address]Dr. Shahbaz Rogel Calcium [Mass/Vol] 8.1 mg/dL Critically low 8.5-10.1 [facility] Comment on above: Performed By: #### B MP ####[facility] Msqhoufigq18[address] [place], [place] [address]Dr. Shahbaz Rogel Chloride [Moles/Vol] 109 mmol/L Critically high 98-107 [facility] Comment on above: Performed By: #### B MP ####[facility] Wpljzmlqos10[address] [place], [place] [address]Dr. Shahbaz Rogel CO2 [Moles/Vol] 25.2 mmol/L Normal 21.0-32.0 [facility] Comment on above: Performed By: #### B MP ####[facility] Kowhmrkejg[address] [place], [place] [address]Dr. Shahbaz Rogel Creatinine [Mass/Vol] 0.89 mg/dL Normal 0.55-1.02 [facility] Comment on above: Performed By: #### B MP ####[facility] Msmrjhkuos[address] [place], [place] [address]Dr. Shahbaz Rogel EGFR-AF ALBANIAN >60 Normal >=60 [facility] Comment on above: Performed By: #### B MP ####[facility] Xdqllwltth58[address] [place], [place] [address]Dr. Shahbaz Rogel EGFR-NON AF ALBANIAN >60 Normal >=60 [facility] Comment on above: Performed By: #### B MP ####[facility] Rxhubutnsu6034[address] [place], [place] [address]Dr. Shahbaz Rogel Glucose [Mass/Vol] 167 mg/dL Critically high 74-106 [facility] Comment on above: Performed By: #### B MP ####[facility] Tvezdugypi[address] [place] [address]Dr. Shahbaz Rogel Potassium [Moles/Vol] 3.8 mmol/L Normal 3.5-5.1 [facility] Comment on above: Performed By: #### B MP ####[facility] Vjiwnulina[address] [place] [address]Dr. Shahbaz Rogel Sodium [Moles/Vol] 142 mmol/L Normal 136-145 [facility] Comment on above: Performed By: #### B MP ####[facility] Gxorxajgdq038[address] [place], [place] [address]Dr. Shahbaz Rogel Urea nitrogen [Mass/Vol] 9.0 mg/dL Normal 7.0-18.0 [facility] Comment on above: Performed By: #### B MP ####[facility] Xpbstatbow86[address] [place], [place] [address]Dr. Shahbaz Rogel Urea nitrogen/Creatinine [Mass ratio] 10.1 mg/mg Normal [facility] Comment on above: Performed By: #### B MP ####[facility] Ksjwfhhdcc[address] [place], [place] [address]Dr. Shahbaz Rogel CARDIAC ROSALINA ADMITon 023 CK [Catalytic activity/Vol] 173 U/L Normal 26-192 [facility] Comment on above: Performed By: #### C EZEKIEL, BMP ####[facility] Goxhfjkpyt[address] [place], [place] [address]Dr. Shahbaz Rogel CK.MB [Mass/Vol] 0.55 ng/mL Normal <=3.60 [facility] Comment on above: Performed By: #### C EZEKIEL, BMP ####[facility] Fhfkxqsycc[address] [place], [place] [address]Dr. Shahbaz Rogel HSTROP 5.9 pg/mL Normal 4.0-51.3 [facility] Comment on above: Result Comment: CUT- OFF POINTS HAVE BEEN ESTABLISHED BASED ON THE FOURTH UNIVERSAL DEFINITIONS OF MYOCARDIALINFARCTION. THE UPPER REFERENCE LIMIT (URL) OF TROPONIN, DEFINED THE 99TH PERCENTILE OFcTnI DISTRIBUTION IN A REFERENCE POPULATION, HAS BEEN CONFIRMED THE DECISION THRESHOLDFOR MT DIAGNOSIS. Performed By: #### C MADM, BMP ####[facility] Oltigkmhrd[address] [place] [phone]. Shahbaz Rogel LEN 76 ng/mL Normal 9-82 [facility] Comment on above: Performed By: #### C EMILIO FALCON ####[facility] Bcppgzdvks[address] [place] [phone]. Shahbaz Rogel CBC W MANUAL DIFFon 01-03-20 23 ATYPICAL LYMPH # Normal [facility] Comment on above: Performed By: #### C CAIN ####[facility] Funpveravl[address] [place] [address]Dr. Shahbaz Rogel ATYPICAL LYMPH % Normal [facility] Comment on above: Performed By: #### C CAIN ####[facility] Mntnnbggli[address] [place], [place] [address]Dr. Shahbaz Rogel BAND # Normal 0.0-0.3 [facility] Comment on above: Performed By: #### C CAIN ####[facility] Rmngjlvvnj[address] [place], [place] [address]Dr. Yilan Rogel BAND % Normal 0-5 [facility] Comment on above: Performed By: #### C CAIN ####[facility] Fncgrhzloc[address] [place], [place] [address]Dr. Shahbaz Rogel BASOM # 0.00 103/ul Normal 0.00-0.10 [facility] Comment on above: Performed By: #### C CAIN ####[facility] [facility] Plshsffkqw39[address] [place] [address]Dr. Shahbaz Rogel BASOM % 0.0 % Critically low 0.2-2.0 [facility] Comment on above: Performed By: #### C CAIN ####[facility] Gwzgwnwfhl8168 [place] [address]Dr. Shahbaz Rogel BLAST # Normal [facility] Comment on above: Performed By: #### C CAIN ####[facility] Srsbyoqovy1562 [place] [address]Dr. Yijarrod Rogel BLAST % Normal [facility] Comment on above: Performed By: #### C CAIN ####[facility] Glgbirmafj7[address] [place] [id number]. Shahbaz Rogel CORRECTED WBC Normal 4.0-11.0 [facility] Comment on above: Performed By: #### C CAIN ####[facility] Adjamgzncp3885 [place] [id number]. Shahbaz Rogel EOS # 0.03 103/ul Normal 0.00-0.70 [facility] Comment on above: Performed By: #### C CAIN ####[facility] Zmujklwqld1904 [place] [address]Dr. Shahbaz Rogel EOS% 1.0 % Normal 0.9-7.0 [facility] Comment on above: Performed By: #### C CAIN ####[facility] [address]cv[address]ayj[address] [place], [place] [address]Dr. Shahbaz Rogel HCT 42.8 % Normal 36.0-48.0 [facility] Comment on above: Performed By: #### C CAIN ####[facility] Wnofnlvoul[address] [place], [place] [address]Dr. Shahbaz Rogel HGB 14.1 g/dl Normal 12.0-16.0 [facility] Comment on above: Performed By: #### C CAIN ####[facility] Ijwlusjcxh[address] [place], [place] [address]Dr. Shahbaz Rogel LYMPHM # 0.64 103/ul Critically low 1.20-3.80 [facility] Comment on above: Performed By: #### C CAIN ####[facility] Jwwtumvadi[address] [place], [place] [address]Dr. Shahbaz Rogel LYMPHM% 23.0 % Normal 20.5-60.0 [facility] Comment on above: Performed By: #### C CAIN ####[facility] Kkxahdbukw[address] [place], [place] [address]Dr. Shahbaz Rogel MCH 28.0 pg Normal 26.7-34.0 [facility] Comment on above: Performed By: #### C CAIN ####[facility] Wtswaywaxw[address] [place], [place] [id number]. Shahbaz Rogel MCHC 32.9 g/dl Normal 29.9-35.2 [facility] Comment on above: Performed By: #### C CAIN ####[facility] Pehqaylwte88[address] [place] [phone]. Shahbaz Rogel MCV 84.9 fL Normal 81.0-99.0 [facility] Comment on above: Performed By: #### C CAIN ####[facility] Lbdlgmtxmr2127 [place] [phone]. Shahbaz Rogel METAMYELOCYTE # Normal [facility] Comment on above: Performed By: #### C CAIN ####[facility] Wfuzdoepxr0189 [place] [phone]. Shahbaz Rogel METAMYELOCYTE % Normal [facility] Comment on above: Performed By: #### C CAIN ####[facility] Noutbamyts[address] [place], [place] [phone]. Shahbaz Rogel MONOM# 0.31 103/ul Normal 0.30-0.80 [facility] Comment on above: Performed By: #### C CAIN ####[facility] Bnzjsrxmov0884 [place] [phone]. Shahbaz Rogel MONOM% 11.0 % Normal 1.7-12.0 [facility] Comment on above: Performed By: #### C CAIN ####[facility] Vwpdzajylq7179 [place] [phone]. Shahbaz Rogel MPV 9.5 fL Normal 9.5-13.5 [facility] Comment on above: Performed By: #### C CAIN ####[facility] Mvukqmprqq3718 [place] [phone]. Shahbaz Rogel MYELOCYTE # Normal [facility] Comment on above: Performed By: #### C CAIN ####[facility] Uvduzzhghp[address] [place], [place] [phone]. Shahbaz Rogel MYELOCYTE % Normal [facility] Comment on above: Performed By: #### C CAIN ####[facility] Tlsyrrmdfo[address] [place], [place] [phone]. Shahbaz Rogel NRBC Normal [facility] Comment on above: Performed By: #### Cheri BARLOW ####[facility] Zbeolffetc7349 [place], [place] [address]Mx. Shahbaz Rogel PLT 197 103/ul Normal 150-450 [facility] Comment on above: Performed By: #### Cheri BARLOW ####[facility] Pbjkccrwri8973 [place], [place] [address]Uo. Shahbaz Rogel RBC 5.04 106/ul Normal 4.20-5.40 [facility] Comment on above: Performed By: #### Cheri BARLOW ####[facility] Wewfmbzefg0052 [place], [place] [address]Vn. Shahbaz Rogel RDW 13.2 % Normal 11.0-15.0 [facility] Comment on above: Performed By: #### Cheri BARLOW ####[facility] Eoflsyiwyg4319 [place], [place] [address]Uv. Shahbaz Rogel SEG # 1.82 103/ul Normal 1.40-6.50 [facility] Comment on above: Performed By: #### Cheri BARLOW ####[facility] Xvouyqxysg3665 [place], [place] [address]Hq. Shahbaz Rogel SEG % 65.0 % Normal 43.0-75.0 [facility] Comment on above: Performed By: #### Cheri BARLOW ####[facility] Bqwtkazizv4192 [place], [place] [address]Za. Shahbaz Rogel WBC 2.8 103/ul Critically low 4.0-11.0 [facility] Comment on above: Performed By: #### Cheri BARLOW ####[facility] Xbfozuvped8691 [place] [phone]. Shahbaz Rogel [facility]on SARS-CoV-2 (COVID-19) RNA PAVAN+probe Ql (Unsp spec) Not detected Normal NOT DETECTED [facility] Comment on above: Result Comment: When diagnostic [...] for this test is supported by the [employer] of Health and Human Service's [...] be used). Performed By: #### C VDTBH ####[facility] Ptdftqnifp[address] [place], [place] [address]Dr. Shahbaz Rogel D-DIMERon 01-02-2023 D-DIMER 0.38 mg/L FEU Normal <=0.59 [facility] Comment on above: Performed By: #### D DIM ####[facility] Ywbdrozcbc[address] [place], [place] [address]Dr. Shahbaz Rogel D-DIMER COMMENTS SEE BELOW Normal [facility] Comment on above: Result Comment: Incr eases [...] generalized hospitalization. Performed By: #### D DIM ####[facility] Rwubqlxqyg[address] [place], [place] [address]Dr. Shahbaz Rogel LACTATE/LACTIC ACIDon 2022 Lactate [Moles/Vol] 2.1 mmol/L Critically high 0.4-2.0 [facility] Comment on above: Performed By: #### L ACT ####[facility] Vttzdbxole[address] [place], [place] [address]Dr. Shahbaz Rogel PROF CHEM 8 (BAS METB)on 04- 03-2023 Anion gap [Moles/Vol] 14.3 mmol/L Normal Th e [facility] Comment on above: Performed By: #### Cheri FALCON, BMP ####[facility] Kanpxlkgxm495[address] [place], [place] [address]Dr. Shahbaz Rogel Calcium [Mass/Vol] 9.0 mg/dL Normal 8.5-10.1 [facility] Comment on above: Performed By: #### Cheri FALCON, BMP ####[facility] Xrosrtdzoe8[address] [place], [place] [address]Dr. Shahbaz Rogel Chloride [Moles/Vol] 102 mmol/L Normal 98-107 [facility] Comment on above: Performed By: #### Cheri FALCON, BMP ####[facility] Vcfadvyywk964[address] [place], [place] [address]Dr. Lilajarrod Rogel CO2 [Moles/Vol] 25.5 mmol/L Normal 21.0-32.0 [facility] Comment on above: Performed By: #### Cheri FALCON, BMP ####[facility] Tcjtyvlmza01[address] [place], [place] [address]Dr. Shahbaz Rogel Creatinine [Mass/Vol] 1.01 mg/dL Normal 0.55-1.02 [facility] Comment on above: Performed By: #### Cheri FALCON, BMP ####[facility] Dwskkpztjf[address] [place], [place] [address]Dr. Shahbaz Juan F EGFR-AF ALBANIAN >60 Normal >=60 [facility] Comment on above: Performed By: #### Cheri FALCON, BMP ####[facility] Momlllrhtr64[address] [place], [place] [address]Dr. Lilajarrod Juan F EGFR-NON AF ALBANIAN 56 mL/min/1.73m2 Critically low >=60 [facility] Comment on above: Performed By: #### Cheri FALCON, BMP ####[facility] Nkxcsfkwyo84[address] [place], [place] [address]Dr. Lilajarrod Rogel Glucose [Mass/Vol] 105 mg/dL Normal 74-106 [facility] Comment on above: Performed By: #### Cheri FALCON, BMP ####[facility] Oxsfwaryxr[address] [place], [place] [address]Dr. Shahbaz Rogel Potassium [Moles/Vol] 3.8 mmol/L Normal 3.5-5.1 [facility] Comment on above: Performed By: #### C EZEKIEL, BMP ####[facility] Humiwaioma4[address] [place] [address]Dr. Shahbaz Rogel Sodium [Moles/Vol] 138 mmol/L Normal 136-145 [facility] Comment on above: Performed By: #### C EZEKIEL, BMP ####[facility] Wgcnwlvurm[address] [place], [place] [address]Dr. Shahbaz Rogel Urea nitrogen [Mass/Vol] 9.0 mg/dL Normal 7.0-18.0 [facility] Comment on above: Performed By: #### C EZEKIEL, BMP ####[facility] Jhwctkxtbc[address] [place], [place] [address]Dr. Shahbaz Rogel Urea nitrogen/Creatinine [Mass ratio] 8.9 mg/mg Normal [facility] Comment on above: Performed By: #### C EZEKIEL, BMP ####[facility] Zeyjzzstro649[address] [place], [place] [address]Dr. Shahbaz Rogel XR CHEST 1 Von 01-02-2023 XR CHEST 1 V Normal [facility] INSULINon 11-02-2022 Insulin 6.0 uIU/mL Normal 2.6-24.9 [facility] Comment on above: Performed By: #### I NSULIN ####[facility] Ljdjupgzuz[address] [place], [place] [address]Dr. Shahbaz Rogel CBC AUTO DIFFon 11-01-2022 BASO # 0.0 103/ul Normal 0.0-0.1 [facility] Comment on above: Performed By: #### C BC ####[facility] Onljnrhdgg301[address] [place], [place] [address]Dr. Shahbaz Rogel Basophils/100 WBC (Bld) 0.5 % Normal 0.2-2.0 [facility] Comment on above: Performed By: #### C BC ####[facility] Lrytcviagm429[address] [place], [place] [address]Dr. Shahbaz Rogel EO # 0.2 103/ul Normal 0.0-0.7 [facility] Comment on above: Performed By: #### C BC ####[facility] Onrdsnjinw739[address] [place], [place] [address]Dr. Shahbaz Rogel Eosinophils/100 WBC (Bld) 5.2 % Normal 0.9-7.0 [facility] Comment on above: Performed By: #### C BC ####[facility] Dhnpffmkxa[address] [place], [place] [address]Dr. Shahbaz Rogel Erythrocyte distribution width (RBC) [Ratio] 12.7 % Normal 11.0-15.0 [facility] Comment on above: Performed By: #### C BC ####[facility] Vpyrswtryc[address] [place], [place] [address]Dr. Shahbaz Rogel Hematocrit (Bld) [Volume fraction] 46.4 % Normal 36.0-48.0 [facility] Comment on above: Performed By: #### C BC ####[facility] Ywhdmiwwuq7[address] [place], [place] [address]Dr. Shahbaz Rogel Hemoglobin (Bld) [Mass/Vol] 14.9 g/dL Normal 12.0-16.0 [facility] Comment on above: Performed By: #### C BC ####[facility] Mqvgtjcaef[address] [place], [place] [address]Dr. Shahbaz Rogel IG # 0.00 10e3/ul Normal 0.00-0.03 [facility] Comment on above: Performed By: #### C BC ####[facility] Uugfqtaykh[address] [place], [place] [address]Dr. Shahbaz Rogel IG % 0.0 % Normal 0.0-0.5 [facility] Comment on above: Performed By: #### C BC ####[facility] Zjhkdzjgtm[address] [place], [place] [address]DrChen Rogel LYMPH # 1.1 103/ul Critically low 1.2-3.8 [facility] Comment on above: Performed By: #### C BC ####[facility] Ckmzzgcyxm257[address] [place], [place] [address]Dr. Shahbaz Rogel Lymphocytes/100 WBC (Bld) 25.5 % Normal 20.5-60.0 [facility] Comment on above: Performed By: #### C BC ####[facility] Yhbecwyaai[address]03 [place] [address]DrChen Rogel MANUAL DIFF REQ NO Normal [facility] Comment on above: Performed By: #### C BC ####[facility] Qzcsxifusj0455 [place] [address]Dr. Shahbaz Rogel MCH (RBC) [Entitic mass] 27.8 pg Normal 26.7-34.0 [facility] Comment on above: Performed By: #### C BC ####[facility] Yxzhuinxac8216[address] [place], [place] [address]Dr. Shahbaz Rogel MCHC (RBC) [Mass/Vol] 32.1 g/dL Normal 29.9-35.2 [facility] Comment on above: Performed By: #### C BC ####[facility] Aaymlaodon[address] [place], [place] [address]DrChen Rogel MCV (RBC) [Entitic vol] 86.6 fL Normal 81.0-99.0 [facility] Comment on above: Performed By: #### C BC ####[facility] Yhsxtxcvnt[address] [place], [place] [address]DrChen Rogel MONO # 0.2 103/ul Critically low 0.3-0.8 [facility] Comment on above: Performed By: #### C BC ####[facility] Xmbjuqjyir[address] [place], [place] [address]DrChen Rogel Monocytes/100 WBC (Bld) 5.4 % Normal 1.7-12.0 [facility] Comment on above: Performed By: #### C BC ####[facility] Xdppphydme[address] [place], [place] [address]DrChen Rogel NEUT # 2.7 103/ul Normal 1.4-6.5 [facility] Comment on above: Performed By: #### C BC ####[facility] Ajuelzucre92[address] [place], [place] [address]DrChen Rogel Neutrophils/100 WBC (Bld) 63.4 % Normal 43.0-75.0 [facility] Comment on above: Performed By: #### C BC ####[facility] Dzxezbigrl5131 [place] [address]Dr. Shahbaz Rogel Platelet mean volume (Bld) [Entitic vol] 9.4 fL Critically low 9.5-13.5 [facility] Comment on above: Performed By: #### C BC ####[facility] Oobwbaydpu6848 [place] [address]Dr. Shahbaz Juan F PLT 216 103/ul Normal 150-450 [facility] Comment on above: Performed By: #### C BC ####[facility] Myjjgczyum6085 [place] [address]Dr. Shahbaz Juan F RBC 5.36 106/ul Normal 4.20-5.40 [facility] Comment on above: Performed By: #### C BC ####[facility] Bvtdqadukp[address] [place], [place] [address]Dr. Shahbaz Juan F WBC 4.2 103/ul Normal 4.0-11.0 [facility] Comment on above: Performed By: #### C BC ####[facility] Kxhbdhmaep5398 [place] [address]Dr. Shahbaz Juan F FREE THYROXINE INDEX T7on FTI 2.92 Normal 1.30-4.50 [facility] Comment on above: Performed By: #### C MP, LIPID, T7, TSH ####[facility] Hlbehikswb9490 [place] [address]Dr. Shahbaz Juan F T3U 37.0 % Normal 30.0-39.0 [facility] Comment on above: Performed By: #### C MP, LIPID, T7, TSH ####[facility] Apmvdgemlc4879 [place] [address]Dr. Shahbaz Rogel T4 [Mass/Vol] 7.90 ug/dL Normal 4.80-13.90 [facility] Comment on above: Performed By: #### C MP, LIPID, T7, TSH ####[facility] Jsmnyrjjap[address] [place] [address]Dr. Shahbaz Rogel GLYCOHEMOGLOBIN A1Con 2022 ADA RECOMMENDATION SEE BELOW Normal [facility] Comment on above: Result Comment: ADA RECOMMENDED LIMIT 4.0 - 6.0 ADA THERAPEUTIC TARGET < 7.0 ACTION SUGGESTED > 7.0 Performed By: #### A 1C ####[facility] Ttuqdbtqgi4575 [place] [id number]. Shahbaz Rogel Glucose [Mass/Vol] 120 mg/dL Normal [facility] Comment on above: Performed By: #### A 1C ####[facility] Jmhnjmzzaw[address] [place], [place] [address]Dr. Shahbaz Rogel HbA1c (Bld) [Mass fraction] 5.8 % Normal 4.5-6.2 [facility] Comment on above: Performed By: #### A 1C ####[facility] Ljacqysccu[address] [place], [place] [address]Dr. Shahbaz Rogel IRONon 11-01-2022 Iron [Mass/Vol] 54.0 ug/dL Normal 50.0-170.0 [facility] Comment on above: Performed By: #### I GRIS ####[facility] Hebjbcfgmm[address] [place], [place] [address]Dr. Shahbaz Rogel LIPID PROFILEon 11-01-2022 CHOL-HDL RATIO NORM SEE BELOW Normal [facility] Comment on above: Result Comment: 3.3 - 4.4 LOW RISK 4.4 - 7.1 AVERAGE RISK 7.1 - 11.0 MODERATE RISK >11.0 HIGH RISK Performed By: #### C MP, LIPID, T7, TSH ####[facility] Mlmziletmd[address] [place], [place] [address]Dr. Shahbaz Rogel Cholesterol [Mass/Vol] 203 mg/dL Critically high <=200 [facility] Comment on above: Performed By: #### C MP, LIPID, T7, TSH ####[facility] Chodgpstwr[address] [place], [place] [address]Dr. Shahbaz Rogel Cholesterol in HDL [Mass/Vol] 42 mg/dL Normal 40-60 [facility] Comment on above: Performed By: #### C MP, LIPID, T7, TSH ####[facility] Dxzwacsvhl9753 [place] [id number]. Shahbaz Rogel Cholesterol in LDL [Mass/Vol] 121.4 mg/dL Normal [facility] Comment on above: Performed By: #### C MP, LIPID, T7, TSH ####[facility] Xvevfpflej3510 [place] [id number]. Shahbaz Rogel Cholesterol.total/Chol esterol in HDL [Mass ratio] 4.8 {ratio} Normal [facility] Comment on above: Performed By: #### C MP, LIPID, T7, TSH ####[facility] Ejsjzdpods[address]54 [place] [address]Dr. Shahbaz Rogel HDL NORMAL > or = 60 mg/dl - LO W CARDIOVASCULAR RISK <40 mg/dl - HIGH CARDIOVASCULAR RISK Normal [facility] Comment on above: Performed By: #### C MP, LIPID, T7, TSH ####[facility] Rucbrbydkg9961 [place] [address]Dr. Shahbaz Rogel LDL CALC NORMAL SEE BELOW Normal [facility] Comment on above: Result Comment: <100 mg/dl OPTIMAL 100 - 129 mg/dl NEAR OR ABOVE OPTIMAL 130 - 159 mg/dl BORDERLINE HIGH 160 - 189 mg/dl HIGH >190 mg/dl VERY HIGH Performed By: #### C MP, LIPID, T7, TSH ####[facility] Aqzawxoehm[address] [place] [address]Dr. Shahbaz Rogel Triglyceride [Mass/Vol] 198 mg/dL Critically high <=150 [facility] Comment on above: Performed By: #### C MP, LIPID, T7, TSH ####[facility] Qbwupynvqf8880 [place] [id number]. Shahbaz Rogel VLDL CALC 39.6 mg/dL Normal [facility] Comment on above: Performed By: #### C MP, LIPID, T7, TSH ####[facility] Lfbbqrvafo[address] [place] [address]Dr. Shahbaz Rogel PROF 14(COMP METB)on 023 Albumin [Mass/Vol] 4.1 g/dL Normal 3.4-5.0 [facility] Comment on above: Performed By: #### C MP, LIPID, T7, TSH ####[facility] Nhvkfjtanx2014 [place] [id number]. Shahbaz Rogel Albumin/Globulin [Mass ratio] 1.0 {ratio} Normal [facility] Comment on above: Performed By: #### C MP, LIPID, T7, TSH ####[facility] Lnwafnczvy64[address] [place] [address]Dr. Shahbaz Rogel ALP [Catalytic activity/Vol] 126 U/L Critically high 46-116 [facility] Comment on above: Performed By: #### C MP, LIPID, T7, TSH ####[facility] Fdlvtkprkz7455 [place] [address]Dr. Shahbaz Rogel ALT [Catalytic activity/Vol] 30 U/L Normal 14-59 [facility] Comment on above: Performed By: #### C MP, LIPID, T7, TSH ####[facility] Qvmlmqeltq8244 [place] [address]Dr. Shahbaz Rogel Anion gap [Moles/Vol] 12.3 mmol/L Normal [facility] Comment on above: Performed By: #### C MP, LIPID, T7, TSH ####[facility] Lercaibesf[address] [place], [place] [address]Dr. Shahbaz Rogel AST [Catalytic activity/Vol] 25 U/L Normal 15-37 [facility] Comment on above: Performed By: #### C MP, LIPID, T7, TSH ####[facility] Qjrkofhjqk[address] [place] [address]Dr. Shahbaz Rogel Bilirubin [Mass/Vol] 0.5 mg/dL Normal 0.2-1.0 [facility] Comment on above: Performed By: #### C MP, LIPID, T7, TSH ####[facility] Qskcgbfkst6017 [place] [address]Dr. Shahbaz Rogel Calcium [Mass/Vol] 9.4 mg/dL Normal 8.5-10.1 [facility] Comment on above: Performed By: #### C MP, LIPID, T7, TSH ####[facility] Mdahifkjve1472 [place] [address]Dr. Shahbaz Rogel Chloride [Moles/Vol] 104 mmol/L Normal 98-107 [facility] Comment on above: Performed By: #### C MP, LIPID, T7, TSH ####[facility] Daarjpbuyl[address] [place] [address]Dr. Shahbaz Rogel CO2 [Moles/Vol] 29.6 mmol/L Normal 21.0-32.0 [facility] Comment on above: Performed By: #### C MP, LIPID, T7, TSH ####[facility] Ovqdthwwmu[address] [place] [address]Dr. Shahbaz Rogel Creatinine [Mass/Vol] 0.91 mg/dL Normal 0.55-1.02 [facility] Comment on above: Performed By: #### C MP, LIPID, T7, TSH ####[facility] Zgnqqbctly[address] [place] [address]Dr. Shahbaz Rogel EGFR-AF ALB[place]IAN >60 Normal >=60 [facility] Comment on above: Performed By: #### C MP, LIPID, T7, TSH ####[facility] Arjxxaeoyw[address] [place] [address]Dr. Shahbaz Rogel EGFR-NON AF [place]IAN >60 Normal >=60 [facility] Comment on above: Performed By: #### C MP, LIPID, T7, TSH ####[facility] Jdlykhjfnb[address] [place] [address]Dr. Lilajarrod Rogel Globulin (S) [Mass/Vol] 4.0 g/dL Normal [facility] Comment on above: Performed By: #### C MP, LIPID, T7, TSH ####[facility] Zcuuqmowxv[address] [place] [address]Dr. Shahbaz Rogel Glucose [Mass/Vol] 85 mg/dL Normal 74-106 [facility] Comment on above: Performed By: #### C MP, LIPID, T7, TSH ####[facility] Ybvrydhhhy[address] [place] [address]Dr. Shahbaz Rogel Potassium [Moles/Vol] 3.9 mmol/L Normal 3.5-5.1 [facility] Comment on above: Performed By: #### C MP, LIPID, T7, TSH ####[facility] Szfheyvhxm5754 [place] [id number]. Shahbaz Rogel Protein [Mass/Vol] 8.1 g/dL Normal 6.4-8.2 [facility] Comment on above: Performed By: #### C MP, LIPID, T7, TSH ####[facility] Jvwxpfknmg[address] [place] [address]Dr. Shahbaz Rogel Sodium [Moles/Vol] 142 mmol/L Normal 136-145 [facility] Comment on above: Performed By: #### C MP, LIPID, T7, TSH ####[facility] Btyzrmdonq[address] [place] [address]Dr. Shahbaz Rogel Urea nitrogen [Mass/Vol] 9.0 mg/dL Normal 7.0-18.0 [facility] [place] Comment on above: Performed By: #### C MP, LIPID, T7, TSH ####[facility] [address] [place] [address]Dr. Shahbaz Rogel Urea nitrogen/Creatinine [Mass ratio] 9.9 mg/mg Normal [facility] Comment on above: Performed By: #### C MP, LIPID, T7, TSH ####[facility] [address] [place] [address]Dr. Shahbaz Rogel TSHon 11-01-2022 TSH 0.045 uIU/mL Critically low 0.358-3.74 0 [facility] Comment on above: Performed By: #### C MP, LIPID, T7, TSH ####[facility] [address] [place], [place] [address]Dr. Shahbaz Rogel XR HUMERUS LT MIN 2Von 10-01 XR HUMERUS LT MIN 2V Normal [facility] XR LSPINE 2_3 VIEWSon 2021 XR LSPINE 2_3 VIEWS Normal [facility] XR CHEST 1 Von 08-25-2022 XR CHEST 1 V Normal [facility] ACID FAST SMEAR AND CXon Acid Fast Culture Negative Normal [facility] Comment on above: Result Comment: No a ninfa fast bacilli isolated after 6 weeks. Performed By: #### A FB ####[facility] [address] [place], [place] [address]Fx. Shahbaz Rogel Acid Fast Smear Negative Normal [facility] Comment on above: Performed By: #### A FB ####[facility] [address] [place], [place] [address]Vw. Shahbaz Rogel [employer] Specimen Processing Concentration Normal [facility] Comment on above: Performed By: #### A FB ####[facility] [address] [place], [place] [address]Ec. Shahbaz Rogel Bacteria identified Anaer cx Nom (Unsp spec)Ordered By: Rodolfo Harley on 08-13-2022 Anaerobic microbial culture No Anaerobes Isolated 3 Days [facility] Basophils Auto (Bld) [#/Vol] Ordered By: Rodolfo Harley on 08-12-2022 Basophils (Bld) [#/Vol] 0.0 10*3/uL 0.0-0.2 [facility] Basophils/100 WBC Auto (Bld) Ordered By: Rodolfo Harley on 08-12-2022 Basophils/100 WBC (Bld) 0.4 % . [facility] Creatinine and Glomerular fi ltration rate.predicted panel (S/P/Bld)Ordered By: Rodolfo Harley on 08-12-2022 Creatinine [Mass/Vol] 0.74 mg/dL 0.44-1.03 [facility] Eosinophils Auto (Bld) [#/Vo l]Ordered By: Rodolfo Harley on 08-12-2022 Eosinophils (Bld) [#/Vol] 0.0 10*3/uL 0.0-0.45 [facility] Eosinophils/100 WBC Auto (Bl d)Ordered By: Rodolfo Harley on 08-12-2022 Eosinophils/100 WBC (Bld) 0.0 % . [facility] Erythrocyte distribution wid th Auto (RBC) [Ratio]Ordered By: Rodolfo Harley on 08-12-2022 Erythrocyte distribution width (RBC) [Ratio] 14.2 % 11.9-15.3 [facility] Estimated glomerular filtrat ion rate (GFR) non- AmericanOrdered By: Rodolfo Harley on 08-12-2022 GFR/1.73 sq M.predicted among non-blacks MDRD (S/P/Bld) [Vol rate/Area] > 60 mL/Min [facility] Hematocrit Auto (Bld) [Volum e fraction]Ordered By: Rodolfo Harley on 08-12-2022 Hematocrit (Bld) [Volume fraction] 38.0 % 34.0-46.4 [facility] Hemoglobin [Mass/volume] in BloodOrdered By: Rodolfo Harley on 08-12-2022 Hemoglobin (Bld) [Mass/Vol] 12.5 g/dL 11.8-15.4 [facility] Laboratory - Hematology and Cell countsOrdered By: Rodolfo Harley on 08-12-2022 Nucleated RBC/100 WBC (Bld) [Ratio] 0.1 % 0-0.5 [facility] Leukocytes [#/volume] in Blo od by Automated countOrdered By: Rodolfo Harley on 08-12-2022 WBC (Bld) [#/Vol] 5.8 10*3/uL 4.5-11.0 [facility] Lymphocytes Auto (Bld) [#/Vo l]Ordered By: Rodolfo Harley on 08-12-2022 Lymphocytes (Bld) [#/Vol] 0.7 10*3/uL 1.00-4.8 [facility] Lymphocytes/100 WBC Auto (Bl d)Ordered By: Rodolfo Harley on 08-12-2022 Lymphocytes/100 WBC (Bld) 11.4 % . [facility] MCH Auto (RBC) [Entitic mass ]Ordered By: Rodolfo Harley on 08-12-2022 MCH (RBC) [Entitic mass] 28.1 pg 24.7-34.3 [facility] MCHC Auto (RBC) [Mass/Vol]Or dered By: Rodolfo Harley on 08-12-2022 MCHC (RBC) [Mass/Vol] 32.9 g/dL 32.0-35.0 [facility] MCV Auto (RBC) [Entitic vol] Ordered By: Rodolfo Harley on 08-12-2022 MCV (RBC) [Entitic vol] 85.4 fL 80-100 [facility] Monocytes Auto (Bld) [#/Vol] Ordered By: Rodolfo Harley on 08-12-2022 Monocytes (Bld) [#/Vol] 0.3 10*3/uL 0.0-0.8 [facility] Monocytes/100 WBC Auto (Bld) Ordered By: Rodolfo Harley on 08-12-2022 Monocytes/100 WBC (Bld) 4.8 % . [facility] Neutrophils Auto (Bld) [#/Vo l]Ordered By: Rodolfo Harley on 08-12-2022 Neutrophils (Bld) [#/Vol] 4.8 10*3/uL 1.8-7.7 [facility] Neutrophils/100 WBC Auto (Bl d)Ordered By: Rodolfo Harley on 08-12-2022 Neutrophils/100 WBC (Bld) 83.4 % . [facility] No Panel InformationOrdered By: Rodolfo Harley on 08-12-2022 Estimated GFR () > 60 mL/Min [facility] Comment on above: GFR estimated refere nce range: According to KDOQI guidelines, <60 ml/min/1.73m2 is sufficient to diagnose a patient with chronic kidney disease. Pharmacy Creatinine Clearance (Chem 59.45 [facility] Platelet mean volume Auto (B ld) [Entitic vol]Ordered By: Rodolfo Harley on 08-12-2022 Platelet mean volume (Bld) [Entitic vol] 7.9 fL 6.3-10.7 [facility] Platelets Auto (Bld) [#/Vol] Ordered By: Rodolfo Harley on 08-12-2022 Platelets (Bld) [#/Vol] 196 10*3/uL 150-450 [facility] RBC Auto (Bld) [#/Vol]Ordere d By: Rodolfo Harley on 08-12-2022 RBC (Bld) [#/Vol] 4.45 10*6/uL 3.60-5.00 [facility] Serum or plasma anion gap de terminationOrdered By: Rodolfo Harley on 08-12-2022 Anion gap [Moles/Vol] 7.5 mmol/L 6.0-15.0 [facility] Serum or plasma calcium dagoberto urement (mass/volume)Ordered By: Rodolfo Harley on 08-12-2022 Calcium [Mass/Vol] 8.7 mg/dL 8.2-10.2 [facility] Serum or plasma chloride anahy surement (moles/volume)Ordered By: Rodolfo Harley on 08-12-2022 Chloride [Moles/Vol] 108 mmol/L 95-114 [facility] Serum or plasma glucose dagoberto urement (mass/volume)Ordered By: Rodolfo Harley on 08-12-2022 Glucose [Mass/Vol] 133 mg/dL 70-100 [facility] Comment on above: ADA recommended refe rence rangeRandom Glucose Reference Range is dependent on time and content of last meal. Glucose of more than 200 mg/dL in a nonstressed, ambulatory subject supports the diagnosis of Diabetes Mellitus. Serum or plasma potassium me asurement (moles/volume)Ordered By: Rodolfo Harley on 08-12-2022 Potassium [Moles/Vol] 3.7 mmol/L 3.5-5.1 [facility] Serum or plasma sodium measu rement (moles/volume)Ordered By: Rodolfo Harley on 08-12-2022 Sodium [Moles/Vol] 139 mmol/L 136-146 [facility] Serum or plasma total carbon dioxide measurement (moles/volume)Ordered By: Rodolfo Harley on 08-12-2022 CO2 [Moles/Vol] 27.2 mmol/L 22.0-30.0 [facility] Serum or plasma urea nitroge n measurement (mass/volume)Ordered By: Rodolfo Harley on 08-12-2022 Urea nitrogen [Mass/Vol] 14 mg/dL 9-23 [facility] ABO and Rh group post transf usion reaction Nom (Bld)Ordered By: Rodolfo Harley on 08-10-2022 Microscopic observation Gram stain Nom (Unsp spec) [facility] [employer] cultureOrdered By: Sissy Harley on 08-10-2022 Mycobacterium sp identified Org specific cx Nom (Unsp spec) [facility] [employer] smearOrdered By: Rodolfo Harley on 08-10-2022 Microscopic observation Smear Nom (Unsp spec) [facility] Aerobic cultureOrdered By: Margie Harley on 08-10-2022 Bacteria identified Aer cx Nom (Unsp spec) No Growth 2 Days [facility] Anaerobic cultureOrdered By: Rodolfo Harley on 08-10-2022 Bacteria identified Anaer cx Nom (Unsp spec) No Anaerobes Isolated 3 Days [facility] Arterial blood standard base excess determination by calculationOrdered By: Rodolfo Harley on 08-10-2022 Base excess standard Calc (BldA) [Moles/Vol] 5 mmol/L -2-3 [facility] Blood carbon dioxide, total measurement by calculation (moles/volume)Ordered By: Rodolfo Harley on 08-10-2022 CO2 Calc (Bld) [Moles/Vol] 30 mmol/L 23-[address] [facility] [address] biopsyOrdered By: Rodolfo Harley on 08-10-2022 Hematocrit (Bld) [Volume fraction] 40.0 % 38.0-51.0 [facility] Fungal cultureOrdered By: Rolanda Harley on 08-10-2022 Fungus identified Cx Nom (Unsp spec) [facility] Glucose Glucometer (BldC) [M ass/Vol]Ordered By: Rodolfo Harley on 08-10-2022 Glucose [Mass/Vol] 126 mg/dL 70-105 [facility] Gram stain for investigation of transfusion reactionOrdered By: Rodolfo Harley on 08-10-2022 Microscopic observation Gram stain Nom (Unsp spec) [facility] Hemoglobin Calc (Bld) [Mass/ Vol]Ordered By: Rodolfo Harley on 08-10-2022 Hemoglobin (Bld) [Mass/Vol] 13.6 g/dL 12.0-17.0 [facility] Monocyte %Ordered By: Jean Harley on 08-10-2022 Monocyte % 39.9 mm[Hg] 35-51 [facility] Monocyte % 45 mm[Hg] 80-105 [facility] No Panel InformationOrdered By: Rodolfo Harley on 08-10-2022 Chlamydia psittaci Antibodies <1:10 Neg:<1:10 [facility] Comment on above: This test was develo ped and its performance characteristicsdetermined by [facility]. It has not been cleared or approvedby the Food and Drug Administration. The FDA hasdetermined that such clearance or approval is notnecessary.Performed at: - [facility] [id number] [place], [place] [id number] Director: Shelly Vargas MD, Phone: [phone] Potassium (Bld) [Moles/Vol]O rdered By: Rodolfo Hraley on 08-10-2022 Potassium [Moles/Vol] 3.8 mmol/L 3.5-4.9 [facility] Sodium (Bld) [Moles/Vol]Orde red By: Rodolfo Harley on 08-10-2022 Sodium [Moles/Vol] 141 mmol/L 138-146 [facility] Whole blood bicarbonate dagoberto urementOrdered By: Rodolfo Harley on 08-10-2022 HCO3 (Bld) [Moles/Vol] 29.1 mmol/L 22.0-28.0 [facility] Whole blood ionized calcium measurement (moles/volume)Ordered By: Rodolfo Harley on 08-10-2022 Calcium.ionized (Bld) [Moles/Vol] 1280 mmol/L 1.12-1.32 [facility] Whole blood oxygen saturatio n measurementOrdered By: Rodolfo Harley on 08-10-2022 Oxygen saturation in Blood 84 % 95-98 [facility] Comment on above: Reference ranges ref lect baseline specimens only Whole blood pHOrdered By: Rolanda Harley on 08-10-2022 pH (Bld) 7.470 Units 7.31-7.45 [facility] Urine culture routineOrdered By: Rodolfo Harley on 08-07-2022 Bacteria identified Cx Nom (U) 2 Days [facility] Activated partial thrombopla stin time (aPTT) in platelet poor plasma by coagulation aOrdered By: Rodolfo Harley on 08-05-2022 aPTT Coag (PPP) [Time] 35.9 s 25.1-36.5 [facility] Basophils Auto (Bld) [#/Vol] Ordered By: Rodolfo Harley on 08-05-2022 Basophils (Bld) [#/Vol] 0.0 10*3/uL 0.0-0.2 [facility] Basophils/100 WBC Auto (Bld) Ordered By: Rodolfo Harley on 08-05-2022 Basophils/100 WBC (Bld) 0.5 % . [facility] Body fluid albumin measureme nt (mass/volume)Ordered By: Rodolfo Harley on 08-05-2022 Albumin (Body fld) [Mass/Vol] 3.8 g/dL 3.2-5.5 [facility] COVID-19 Positive/NegativeOr dered By: Rodolfo Harley on 08-05-2022 SARS-CoV-2 (COVID-19) N gene PAVAN+probe Ql (Resp) Negative Negative [facility] Comment on above: Testing for SARS-CoV -2 by RT-PCRThis test was developed and its performance characteristics determined by [employer] and validated at the [facility]. This test has not been FDA [...] on 08-05-2022 Creatinine [Mass/Vol] 0.97 mg/dL 0.44-1.03 [facility] Eosinophils Auto (Bld) [#/Vo l]Ordered By: Rodolfo Harley on 08-05-2022 Eosinophils (Bld) [#/Vol] 0.2 10*3/uL 0.0-0.45 [facility] Eosinophils/100 WBC Auto (Bl d)Ordered By: Rodolfo Harley on 08-05-2022 Eosinophils/100 WBC (Bld) 4.9 % . [facility] Erythrocyte distribution wid th Auto (RBC) [Ratio]Ordered By: Rodolfo Harley on 08-05-2022 Erythrocyte distribution width (RBC) [Ratio] 14.5 % 11.9-15.3 [facility] Estimated glomerular filtrat ion rate (GFR) non- AmericanOrdered By: Rodolfo Harley on 08-05-2022 GFR/1.73 sq M.predicted among non-blacks MDRD (S/P/Bld) [Vol rate/Area] 59 mL/Min [facility] FUNGAL CULTUREon 08-05-2022 Fungus (Mycology) Culture Final report Abnormal [facility] Comment on above: Performed By: #### C XFUN ####[facility] [address] [place], [place] [address]Dr. Shahbaz Rogel Fungus Stain Final report Normal [facility] Comment on above: Performed By: #### C XFUN ####[facility] [address] [place], [place] [address]Dr. Shahbaz Rogel Result 1 Comment Abnormal [facility] Comment on above: Result Comment: MILADYS/ Calcofluor preparation: no fungus observed. Performed By: #### C XFUN ####[facility] [address] [place], [place] [address]Dr. Shahbaz Rogel Result Comment: Aspe rgillus versicolor Result 2 Penicillium species Abnormal [facility] Comment on above: Performed By: #### C XFUN ####[facility] [address] [place], [place] [address]Dr. Shahbaz Rogel Globulin Calc (S) [Mass/Vol] Ordered By: Rodolfo Harley on 08-05-2022 Globulin (S) [Mass/Vol] 2.9 g/dL [facility] Hematocrit Auto (Bld) [Volum e fraction]Ordered By: Rodolfo Harley on 08-05-2022 Hematocrit (Bld) [Volume fraction] 43.3 % 34.0-46.4 [facility] Hemoglobin [Mass/volume] in BloodOrdered By: Rodolfo Harley on 08-05-2022 Hemoglobin (Bld) [Mass/Vol] 14.3 g/dL 11.8-15.4 [facility] - CoagulationOrde red By: Rodolfo Harley on 08-05-2022 PT Coag (PPP) [Time] 12.4 s 9.0-12.9 [facility] - Hematology and Cell countsOrdered By: Rodolfo Harley on 08-05-2022 Nucleated RBC/100 WBC (Bld) [Ratio] 0.0 % 0-0.5 [facility] Leukocytes [#/volume] in Blo od by Automated countOrdered By: Rodolfo Harley on 08-05-2022 WBC (Bld) [#/Vol] 3.4 10*3/uL 4.5-11.0 [facility] Lymphocytes Auto (Bld) [#/Vo l]Ordered By: Rodolfo Harley on 08-05-2022 Lymphocytes (Bld) [#/Vol] 0.9 10*3/uL 1.00-4.8 [facility] Lymphocytes/100 WBC Auto (Bl d)Ordered By: Rodolfo Harley on 08-05-2022 Lymphocytes/100 WBC (Bld) 27.2 % . [facility] MCH Auto (RBC) [Entitic mass ]Ordered By: Rodolfo Harley on 08-05-2022 MCH (RBC) [Entitic mass] 28.4 pg 24.7-34.3 [facility] MCHC Auto (RBC) [Mass/Vol]Or dered By: Rodolfo Harley on 08-05-2022 MCHC (RBC) [Mass/Vol] 33.1 g/dL 32.0-35.0 [facility] MCV Auto (RBC) [Entitic vol] Ordered By: Rodolfo Harley on 08-05-2022 MCV (RBC) [Entitic vol] 85.9 fL 80-100 [facility] Monocytes Auto (Bld) [#/Vol] Ordered By: Rodolfo Harley on 08-05-2022 Monocytes (Bld) [#/Vol] 0.3 10*3/uL 0.0-0.8 [facility] Monocytes/100 WBC Auto (Bld) Ordered By: Rodolfo Harley on 08-05-2022 Monocytes/100 WBC (Bld) 7.5 % . [facility] Neutrophils Auto (Bld) [#/Vo l]Ordered By: Rodolfo Harley on 08-05-2022 Neutrophils (Bld) [#/Vol] 2.0 10*3/uL 1.8-7.7 [facility] Neutrophils/100 WBC Auto (Bl d)Ordered By: Rodolfo Harley on 08-05-2022 Neutrophils/100 WBC (Bld) 59.9 % . [facility] No Panel InformationOrdered By: Rodolfo Harley on 08-05-2022 Estimated GFR () > 60 mL/Min [facility] Comment on above: GFR estimated refere nce range: According to KDOQI guidelines, <60 ml/min/1.73m2 is sufficient to diagnose a patient with chronic kidney disease. Pharmacy Creatinine Clearance (Chem N/A [facility] Platelet mean volume Auto (B ld) [Entitic vol]Ordered By: Rodolfo Harley on 08-05-2022 Platelet mean volume (Bld) [Entitic vol] 8.1 fL 6.3-10.7 [facility] Platelet poor plasma interna tional normalized ratio (INR) by coagulation assay (relatOrdered By: Rodolfo Harley on 08-05-2022 INR Coag (PPP) [Relative time] 1.1 {INR} [facility] Comment on above: INR Therapeutic Rang [...] Platelets (Bld) [#/Vol] 243 10*3/uL 150-450 [facility] Protein [Mass/volume] in Ser um or PlasmaOrdered By: Rodolfo Harley on 08-05-2022 Protein [Mass/Vol] 6.7 g/dL 6.1-7.9 [facility] RBC Auto (Bld) [#/Vol]Ordere d By: Rodolfo Harley on 08-05-2022 RBC (Bld) [#/Vol] 5.04 10*6/uL 3.60-5.00 [facility] Serum or plasma alanine snyder otransferase measurement without P-5'-P (enzymatic activiOrdered By: Rodolfo Harley on 08-05-2022 ALT No additional P-5'-P [Catalytic activity/Vol] 14 U/L 10-60 [facility] Serum or plasma albumin/glob ulin mass ratioOrdered By: Rodolfo Harley on 08-05-2022 Albumin/Globulin [Mass ratio] 1.3 {ratio} [facility] Serum or plasma alkaline sruthi sphatase measurement (enzymatic activity/volume)Ordered By: Rodolfo Harley on 08-05-2022 ALP [Catalytic activity/Vol] 91 U/L 32-92 [facility] Serum or plasma anion gap de terminationOrdered By: Rodolfo Harley on 08-05-2022 Anion gap [Moles/Vol] 14.3 mmol/L 6.0-15.0 [facility] Serum or plasma aspartate am inotransferase measurement (enzymatic activity/volume)Ordered By: Rodolfo Harley on 08-05-2022 AST [Catalytic activity/Vol] 21 U/L 10-42 [facility] Serum or plasma calcium dagoberto urement (mass/volume)Ordered By: Rodolfo Harley on 08-05-2022 Calcium [Mass/Vol] 9.5 mg/dL 8.2-10.2 [facility] Serum or plasma chloride anahy surement (moles/volume)Ordered By: Rodolfo Harley on 08-05-2022 Chloride [Moles/Vol] 102 mmol/L 95-114 [facility] Serum or plasma glucose dagoberto urement (mass/volume)Ordered By: Rodolfo Harley on 08-05-2022 Glucose [Mass/Vol] 76 mg/dL 70-100 [facility] Comment on above: ADA recommended refe rence rangeRandom Glucose Reference Range is dependent on time and content of last meal. Glucose of more than 200 mg/dL in a nonstressed, ambulatory subject supports the diagnosis of Diabetes Mellitus. Serum or plasma potassium me asurement (moles/volume)Ordered By: Rodolfo Harley on 08-05-2022 Potassium [Moles/Vol] 3.8 mmol/L 3.5-5.1 [facility] Serum or plasma sodium measu rement (moles/volume)Ordered By: Rodolfo Harley on 08-05-2022 Sodium [Moles/Vol] 138 mmol/L 136-146 [facility] Serum or plasma total biliru bin measurement (mass/volume)Ordered By: Rodolfo Harley on 08-05-2022 Bilirubin [Mass/Vol] 0.7 mg/dL 0.3-1.2 [facility] Serum or plasma total carbon dioxide measurement (moles/volume)Ordered By: Rodolfo Harley on 08-05-2022 CO2 [Moles/Vol] 25.5 mmol/L 22.0-30.0 [facility] Serum or plasma urea nitroge n measurement (mass/volume)Ordered By: Rodolfo Harley on 08-05-2022 Urea nitrogen [Mass/Vol] 12 mg/dL 06-24 [facility] Urine culture routineOrdered By: Rodolfo Harley on 08-05-2022 Bacteria identified Cx Nom (U) 2 Days [facility] XR ANKLE LT MIN 3 Von 2021 XR ANKLE LT MIN 3 V Normal [facility] BNPon 07-06-2022 Natriuretic peptide B (Bld) [Mass/Vol] 843.0 pg/mL Normal <=900.0 [facility] Comment on above: Performed By: #### B TREE PLANTER, CRP, CMP ####[facility] [address] [place] [address]DrChen Rogel CBC W MANUAL DIFFon 07-06-20 22 ATYPICAL LYMPH # Normal [facility] Comment on above: Performed By: #### C BCBRICE ####[facility] [address] [place] [id number] Rogel ATYPICAL LYMPH % Normal [facility] Comment on above: Performed By: #### C BCMAN ####[facility] [address] [place] [id number] Rogel BAND # 0.0 103/ul Normal 0.0-0.3 [facility] Comment on above: Performed By: #### C BCMAN ####[facility] [address] [place] [address]Dr. Shahbaz Rogel BAND % 0 % Normal 0-5 [facility] Comment on above: Performed By: #### C BCMAN ####[facility] [address] [place] [id number]. Yijarrod Rogel BASOM # 0.00 103/ul Normal 0.00-0.10 [facility] Comment on above: Performed By: #### C BCMAN ####[facility] [address] [place] [address]Dr. Yijarrod Rogel BASOM % 0.0 % Critically low 0.2-2.0 [facility] Comment on above: Performed By: #### C BCBRICE ####[facility] [address] [place], [place] [address]Dr. Yijarrod Rogel BLAST # Normal [facility] Comment on above: Performed By: #### C BCBRICE ####[facility] [address] [place], [place] [address]Dr. Yijarrod Rogel BLAST % Normal [facility] Comment on above: Performed By: #### C BCMAN ####[facility] [address] [place], [place] [address]Dr. Shahbaz Rogel CORRECTED WBC Normal 4.0-11.0 [facility] Comment on above: Performed By: #### C BCMAN ####[facility] [address] [place], [place] [address]Dr. Yijarrod Rogel EOS # 0.00 103/ul Normal 0.00-0.70 [facility] Comment on above: Performed By: #### C BCMAN ####[facility] [address] [place], [place] [address]Dr. Yijarrod Rogel EOS% 0.0 % Critically low 0.9-7.0 [facility] Comment on above: Performed By: #### C BCMAN ####[facility] [address] [place], [place] [address]Dr. Yilan Rogel HCT 40.3 % Normal 36.0-48.0 [facility] Comment on above: Performed By: #### C CAIN ####[facility] [address] [place] [id number]. Shahbaz Rogel HGB 12.7 g/dl Normal 12.0-16.0 [facility] Comment on above: Performed By: #### C CAIN ####[facility] [address] [place] [id number]. Shahbaz Rogel LYMPHM # 0.41 103/ul Critically low 1.20-3.80 [facility] Comment on above: Performed By: #### C CAIN ####[facility] [address] [place] [id number]. Shahbaz Rogel LYMPHM% 7.0 % Critically low 20.5-60.0 [facility] Comment on above: Performed By: #### C CAIN ####[facility] [address] [place] [id number]. Shahbaz Rogel MCH 28.0 pg Normal 26.7-34.0 [facility] Comment on above: Performed By: #### C CAIN ####[facility] [address] [place] [id number]. Shahbaz Rogel MCHC 31.5 g/dl Normal 29.9-35.2 [facility] Comment on above: Performed By: #### C CAIN ####[facility] [address] [place] [id number]. Shahbaz Rogel MCV 89.0 fL Normal 81.0-99.0 [facility] Comment on above: Performed By: #### C CAIN ####[facility] [address] [place] [phone]. Shahbaz Rogel METAMYELOCYTE # Normal [facility] Comment on above: Performed By: #### C CAIN ####[facility] [address] [place] [phone]. Shahbaz Rogel METAMYELOCYTE % Normal [facility] Comment on above: Performed By: #### C CAIN ####[facility] [address] [place] [address]Dr. Shahbaz Rogel MONOM# 0.00 103/ul Critically low 0.30-0.80 [facility] [facility] Comment on above: Performed By: #### C CAIN ####[facility] [address] [place] [address]Dr. Shahbaz Rogel MONOM% 0.0 % Critically low 1.7-12.0 [facility] Comment on above: Performed By: #### C CAIN ####[facility] Gsavacvuvi[address] [place] [address]Dr. Shahbaz Rogel MPV 9.8 fL Normal 9.5-13.5 [facility] Comment on above: Performed By: #### C CAIN ####[facility] Wqxkxrilwn[address] [place], [place] [address]Dr. Shahbaz Rogel MYELOCYTE # Normal [facility] Comment on above: Performed By: #### C CAIN ####[facility] Otyjgdxqyy[address] [place], [place] [address]Dr. Shahbaz Rogel MYELOCYTE % Normal [facility] Comment on above: Performed By: #### C CAIN ####[facility] Ulownzkssa[address] [place], [place] [address]Dr. Shahbaz Rogel NRBC Normal [facility] Comment on above: Performed By: #### C CAIN ####[facility] [address]emzivkq[address] [place] [address]Dr. Shahbaz Rogel PLT 187 103/ul Normal 150-450 [facility] Comment on above: Performed By: #### C CAIN ####[facility] Pbsgmdetnt[address] [place], [place] [address]Dr. Shahbaz Rogel RBC 4.53 106/ul Normal 4.20-5.40 [facility] Comment on above: Performed By: #### C CAIN ####[facility] Knqtfqmglp[address] [place], [place] [address]Dr. Shahbaz Rogel RDW 13.3 % Normal 11.0-15.0 [facility] Comment on above: Performed By: #### C CAIN ####[facility] [address]xc[address]kxcb[address] [place] [address]Dr. Shahbaz Rogel SEG # 5.49 103/ul Normal 1.40-6.50 [facility] Comment on above: Performed By: #### C CAIN ####[facility] Ilfedjgwyi[address] [place], [place] [address]Dr. Shahbaz Rogel SEG % 93.0 % Critically high 43.0-75.0 [facility] Comment on above: Performed By: #### C CAIN ####[facility] Nsinsioeso[address] [place], [place] [address]Dr. Shahbaz Rogel WBC 5.9 103/ul Normal 4.0-11.0 [facility] Comment on above: Performed By: #### C CAIN ####[facility] Txxynvvxwf[address] [place], [place] [address]Dr. Shahbaz Rogel CRPon 07-06-2022 CRP [Mass/Vol] mg/L Normal <=1.0 [facility] Comment on above: Performed By: #### B TREE PLANTER, CRP, CMP ####[facility] Yitmnwogek[address] [place], [place] [address]Dr. Lilajarrod Rogel PROF 14(COMP METB)on 022 Albumin [Mass/Vol] 3.4 g/dL Normal 3.4-5.0 [facility] Comment on above: Performed By: #### B TREE PLANTER, CRP, CMP ####[facility] Nvssxlfgun[address] [place], [place] [address]Dr. Shahbaz Rogel Albumin/Globulin [Mass ratio] 1.0 {ratio} Normal [facility] Comment on above: Performed By: #### B TREE PLANTER, CRP, CMP ####[facility] Bhvzxdwxxe[address] [place], [place] [address]Dr. Shahbaz Rogel ALP [Catalytic activity/Vol] 92 U/L Normal 46-116 [facility] Comment on above: Performed By: #### B TREE PLANTER, CRP, CMP ####[facility] Brxoduisgo[address] [place], [place] [address]Dr. Shahbaz Rogel ALT [Catalytic activity/Vol] 21 U/L Normal 14-59 [facility] Comment on above: Performed By: #### B TREE PLANTER, CRP, CMP ####[facility] [address]xlyexu[address] [place] [address]Dr. Shahbaz Rogel Anion gap [Moles/Vol] 13.4 mmol/L Normal Th e [facility] Comment on above: Performed By: #### B TREE PLANTER, CRP, CMP ####[facility] [address]rdrxkw[address] [place] [address]Dr. Shahbaz Rogel AST [Catalytic activity/Vol] 16 U/L Normal 15-37 [facility] Comment on above: Performed By: #### B TREE PLANTER, CRP, CMP ####[facility] Xsvnbhnvgl[address] [place], [place] [address]Dr. Shahbaz Rogel Bilirubin [Mass/Vol] 0.2 mg/dL Normal 0.2-1.0 [facility] Comment on above: Performed By: #### B TREE PLANTER, CRP, CMP ####[facility] Lblkrsbpty89[address] [place], [place] [address]Dr. Shahbaz Rogel Calcium [Mass/Vol] 9.3 mg/dL Normal 8.5-10.1 [facility] Comment on above: Performed By: #### B TREE PLANTER, CRP, CMP ####[facility] Fbznzpmggk[address] [place], [place] [address]Dr. Shahbaz Rogel Chloride [Moles/Vol] 105 mmol/L Normal 98-107 [facility] Comment on above: Performed By: #### B TREE PLANTER, CRP, CMP ####[facility] Qicbudsrvb[address] [place], [place] [address]Dr. Shahbaz Rogel CO2 [Moles/Vol] 23.2 mmol/L Normal 21.0-32.0 [facility] Comment on above: Performed By: #### B TREE PLANTER, CRP, CMP ####[facility] Zvmxijxlvu94[address] [place], [place] [address]Dr. Shahbaz Rogel Creatinine [Mass/Vol] 1.23 mg/dL Critically high 0.55-1.02 [facility] Comment on above: Performed By: #### B TREE PLANTER, CRP, CMP ####[facility] Hxnthruuei47[address] [place], [place] [address]Dr. Shahbaz Rogel EGFR-AF ALBANIAN 55 mL/min/1.73m2 Critically low >=60 [facility] Comment on above: Performed By: #### B TREE PLANTER, CRP, CMP ####[facility] Lfwesaercy[address] [place] [address]Dr. Shahbaz Rogel EGFR-NON AF ALBANIAN 45 mL/min/1.73m2 Critically low >=60 [facility] Comment on above: Performed By: #### B TREE PLANTER, CRP, CMP ####[facility] Jmjoqonblg8[address] [place], [place] [address]Dr. Shahbaz Rogel Globulin (S) [Mass/Vol] 3.3 g/dL Normal [facility] Comment on above: Performed By: #### B TREE PLANTER, CRP, CMP ####[facility] Qpzeiezdip[address] [place], [place] [address]Dr. Shahbaz Rogel Glucose [Mass/Vol] 171 mg/dL Critically high 74-106 [facility] Comment on above: Performed By: #### B TREE PLANTER, CRP, CMP ####[facility] Yqrkqtbzcy[address] [place], [place] [address]Dr. Shahbaz Rogel Potassium [Moles/Vol] 3.6 mmol/L Normal 3.5-5.1 [facility] Comment on above: Performed By: #### B TREE PLANTER, CRP, CMP ####[facility] Uxaptczodw[address] [place], [place] [address]Dr. Shahbaz Rogel Protein [Mass/Vol] 6.7 g/dL Normal 6.4-8.2 [facility] Comment on above: Performed By: #### B TREE PLANTER, CRP, CMP ####[facility] Xmojguffxe[address] [place], [place] [address]Dr. Shahbaz Rogel Sodium [Moles/Vol] 138 mmol/L Normal 136-145 [facility] Comment on above: Performed By: #### B TREE PLANTER, CRP, CMP ####[facility] [address]ubtzf[address] [place] [address]Dr. Shahbaz Rogel Urea nitrogen [Mass/Vol] 21.0 mg/dL Critically high 7.0-18.0 [facility] Comment on above: Performed By: #### B TREE PLANTER, CRP, CMP ####[facility] [address]fdrldvr[address] [place], [place] [address]Dr. Shahbaz Rogel Urea nitrogen/Creatinine [Mass ratio] 17.1 mg/mg Normal [facility] Comment on above: Performed By: #### B TREE PLANTER, CRP, CMP ####[facility] Uasmgobnux[address] [place], [place] [address]Dr. Shahbaz Rogel XR CHEST 2 Von 07-06-2022 XR CHEST 2 V Normal [facility] BNPon 07-05-2022 Natriuretic peptide B (Bld) [Mass/Vol] 83.0 pg/mL Normal <=900.0 [facility] Comment on above: Performed By: #### C RP, CMP, BNP ####[facility] Flgpawqvvp[address] [place], [place] [address]Dr. Shahbaz Rogel CBC AUTO DIFFon 07-05-2022 BASO # 0.0 103/ul Normal 0.0-0.1 [facility] Comment on above: Performed By: #### C BC ####[facility] Xgdljuaynj[address] [place], [place] [address]Dr. Shahbaz Rogel Basophils/100 WBC (Bld) 0.4 % Normal 0.2-2.0 [facility] Comment on above: Performed By: #### C BC ####[facility] Rzasifuoef[address] [place], [place] [address]Dr. Shahbaz Rogel EO # 0.1 103/ul Normal 0.0-0.7 [facility] Comment on above: Performed By: #### C BC ####[facility] [address]ywubwcs[address] [place], [place] [address]Dr. Shahbaz Rogel Eosinophils/100 WBC (Bld) 2.9 % Normal 0.9-7.0 [facility] Comment on above: Performed By: #### C BC ####[facility] Udbiveqqzd[address] [place], [place] [address]Dr. Shahbaz Rogel Erythrocyte distribution width (RBC) [Ratio] 13.4 % Normal 11.0-15.0 [facility] Comment on above: Performed By: #### C BC ####[facility] [address]isp[address] [place] [address]Dr. Shahbaz Rogel Hematocrit (Bld) [Volume fraction] 41.7 % Normal 36.0-48.0 [facility] Comment on above: Performed By: #### C BC ####[facility] [address]zpqvkuv[address] [place] [address]Dr. Shahbaz Rogel Hemoglobin (Bld) [Mass/Vol] 12.9 g/dL Normal 12.0-16.0 [facility] Comment on above: Performed By: #### C BC ####[facility] Rmwfsdriuk[address] [place], [place] [address]Dr. Shahbaz Rogel IG # 0.00 10e3/ul Normal 0.00-0.03 [facility] Comment on above: Performed By: #### C BC ####[facility] [address]cpcw[address] [place], [place] [address]Dr. Shahbaz Rogel IG % 0.0 % Normal 0.0-0.5 [facility] Comment on above: Performed By: #### C BC ####[facility] Letdlcpwte[address] [place], [place] [address]Dr. Lilajarrod Rogel LYMPH # 1.5 103/ul Normal 1.2-3.8 [facility] Comment on above: Performed By: #### C BC ####[facility] Agaaewbdif[address] [place], [place] [address]Dr. Lilajarrod Rogel Lymphocytes/100 WBC (Bld) 32.9 % Normal 20.5-60.0 [facility] Comment on above: Performed By: #### C BC ####[facility] [address]rtxsl[address] [place] [address]DrChen Lilajarrod Rogel MANUAL DIFF REQ NO Normal [facility] Comment on above: Performed By: #### C BC ####[facility] Ryotqwslez[address] [place], [place] [address]DrChen Lilajarrod Rogel MCH (RBC) [Entitic mass] 28.0 pg Normal 26.7-34.0 [facility] Comment on above: Performed By: #### C BC ####[facility] Ysdlntpeph[address] [place], [place] [address]Dr. Shahbaz Rogel MCHC (RBC) [Mass/Vol] 30.9 g/dL Normal 29.9-35.2 [facility] Comment on above: Performed By: #### C BC ####[facility] [address] [place] [id number]. Shahbaz Juan F MCV (RBC) [Entitic vol] 90.5 fL Normal 81.0-99.0 [facility] Comment on above: Performed By: #### C BC ####[facility] [address]wrk[address] [place] [address]Dr. Shahbaz Juan F MONO # 0.4 103/ul Normal 0.3-0.8 [facility] Comment on above: Performed By: #### C BC ####[facility] K[address]rpkhft[address] [place] [address]Dr. Shahbaz Rogel Monocytes/100 WBC (Bld) 8.0 % Normal 1.7-12.0 [facility] Comment on above: Performed By: #### C BC ####[facility] Tgzxqapeko[address] [place], [place] [address]Dr. Shahbaz Rogel NEUT # 2.5 103/ul Normal 1.4-6.5 [facility] Comment on above: Performed By: #### C BC ####[facility] [address] [place] [address]Dr. Lilajarrod Rogel Neutrophils/100 WBC (Bld) 55.8 % Normal 43.0-75.0 [facility] Comment on above: Performed By: #### C BC ####[facility] [address]penj[address] [place] [address]Dr. Shahbaz Rogel Platelet mean volume (Bld) [Entitic vol] 9.7 fL Normal 9.5-13.5 [facility] Comment on above: Performed By: #### C BC ####[facility] [address]gyf[address] [place] [address]Dr. Shahbaz Rogel PLT 158 103/ul Normal 150-450 [facility] Comment on above: Performed By: #### C BC ####[facility] [address]qgzu[address] [place] [address]Dr. Shahbaz Rogel RBC 4.61 106/ul Normal 4.20-5.40 [facility] Comment on above: Performed By: #### C BC ####[facility] [address]phcn[address] [place] [address]Dr. Shahbaz Rogel WBC 4.5 103/ul Normal 4.0-11.0 [facility] Comment on above: Performed By: #### C BC ####[facility] [address]kvwmiu[address] [place] [address]Dr. Shahbaz Rogel CRPon 07-05-2022 CRP [Mass/Vol] mg/L Normal <=1.0 [facility] Comment on above: Performed By: #### C RP, CMP, BNP ####[facility] [address]eqgtbn[address] [place] [address]Dr. Shahbaz Juan F ECHO LIMITED STUDYon ECHO LIMITED STUDY Normal [facility] PROF 14(COMP METB)on Albumin [Mass/Vol] 3.2 g/dL Critically low 3.4-5.0 e [facility] Comment on above: Performed By: #### C RP, CMP, BNP ####[facility] [address]xcwla[address] [place] [address]Dr. Shahbaz Rogel Albumin/Globulin [Mass ratio] 1.0 {ratio} Normal [facility] Comment on above: Performed By: #### C RP, CMP, BNP ####[facility] Enhxgxseaa[address] [place] [address]Dr. Shahbaz Juan F ALP [Catalytic activity/Vol] 88 U/L Normal 46-116 [facility] Comment on above: Performed By: #### C RP, CMP, BNP ####[facility] [address]rdgpan[address] [place] [address]Dr. Lilajarrod Rogel ALT [Catalytic activity/Vol] 17 U/L Normal 14-59 [facility] Comment on above: Performed By: #### C RP, CMP, BNP ####[facility] Flhipqcxwk[address] [place] [address]Dr. Shahbaz Rogel Anion gap [Moles/Vol] 12.5 mmol/L Normal Th e [facility] Comment on above: Performed By: #### C RP, CMP, BNP ####[facility] Tpgzgchczm[address] [place] [address]Dr. Shahbaz Rogel AST [Catalytic activity/Vol] 18 U/L Normal 15-37 [facility] Comment on above: Performed By: #### C RP, CMP, BNP ####[facility] [address]jszvhax[address] [place] [address]Dr. Shahbaz Rogel Bilirubin [Mass/Vol] 0.3 mg/dL Normal 0.2-1.0 [facility] Comment on above: Performed By: #### C RP, CMP, BNP ####[facility] [address]ucwqpij[address] [place], [place] [address]Dr. Shahbaz Rogel Calcium [Mass/Vol] 8.9 mg/dL Normal 8.5-10.1 [facility] Comment on above: Performed By: #### C RP, CMP, BNP ####[facility] Tmdakyzspy[address] [place], [place] [address]Dr. Shahbaz Rogel Chloride [Moles/Vol] 103 mmol/L Normal 98-107 [facility] Comment on above: Performed By: #### C RP, CMP, BNP ####[facility] [address]avabdodco[address] [place], [place] [address]Dr. Shahbaz Rogel CO2 [Moles/Vol] 28.1 mmol/L Normal 21.0-32.0 [facility] Comment on above: Performed By: #### C RP, CMP, BNP ####[facility] Zobzcwvhdp[address] [place], [place] [address]Dr. Shahbaz Rogel Creatinine [Mass/Vol] 1.24 mg/dL Critically high 0.55-1.02 [facility] Comment on above: Performed By: #### C RP, CMP, BNP ####[facility] Qdqybuonzw[address] [place], [place] [address]Dr. Shahbaz Rogel EGFR-AF ALBANIAN 54 mL/min/1.73m2 Critically low >=60 [facility] Comment on above: Performed By: #### C RP, CMP, BNP ####[facility] [address]wnceak[address] [place] [id number]. Shahbaz Rogel EGFR-NON AF ALBANIAN 45 mL/min/1.73m2 Critically low >=60 [facility] Comment on above: Performed By: #### C RP, CMP, BNP ####[facility] Zgkrkhhylk[address] [place] [address]Dr. Shahbaz Rogel Globulin (S) [Mass/Vol] 3.1 g/dL Normal [facility] Comment on above: Performed By: #### C RP, CMP, BNP ####[facility] Cjbvsazrgk[address] [place] [address]Dr. Shahbaz Roegl Glucose [Mass/Vol] 115 mg/dL Critically high 74-106 T [facility] Comment on above: Performed By: #### C RP, CMP, BNP ####[facility] Svaaiqpidi[address] [place] [address]Dr. Shahbaz Rogel Potassium [Moles/Vol] 3.6 mmol/L Normal 3.5-5.1 [facility] Comment on above: Performed By: #### C RP, CMP, BNP ####[facility] [address]kslfxrda[address] [place] [address]Dr. Shahbaz Rogel Protein [Mass/Vol] 6.3 g/dL Critically low 6.4-8.[address] [facility] Comment on above: Performed By: #### C RP, CMP, BNP ####[facility] [address]vjsekfyl[address] [place] [address]Dr. Shahbaz Rogel Sodium [Moles/Vol] 140 mmol/L Normal 136-145 [facility] Comment on above: Performed By: #### C RP, CMP, BNP ####[facility] Hmdezfonlr[address] [place] [address]Dr. Shahbaz Rogel Urea nitrogen [Mass/Vol] 18.0 mg/dL Normal 7.0-18.0 [facility] Comment on above: Performed By: #### C RP, CMP, BNP ####[facility] Nt[address]uydajo[address] [place] [address]Dr. Shahbaz Rogel Urea nitrogen/Creatinine [Mass ratio] 14.5 mg/mg Normal [facility] Comment on above: Performed By: #### C RP, CMP, BNP ####[facility] [address]xbqteots[address] [place] [address]Dr. Shahbaz Rogel T3, TOTAL (TRIIODOTHYRONINE) on 07-05-2022 T3, TOTAL 95 ng/dL Normal 71-180 [facility] Comment on above: Performed By: #### T 3TOTAL ####[facility] [address]bnaulle[address] [place], [place] [address]Dr. Shahbaz Rogel CARDIAC ROSALINA 3-6on 2 CK [Catalytic activity/Vol] 78 U/L Normal 26-192 [facility] Comment on above: Performed By: #### C MREP ####[facility] V[address]bgwxqslw[address] [place], [place] [address]Dr. Shahbaz Rogel CK.MB [Mass/Vol] 1.44 ng/mL Normal <=3.60 [facility] Comment on above: Performed By: #### C MREP ####[facility] Nogmmkdsob[address] [place], [place] [address]Dr. Shahbaz Juan F HSTROP 9.0 pg/mL Normal 4.0-51.3 [facility] Comment on above: Result Comment: CUT- OFF POINTS HAVE BEEN ESTABLISHED BASED ON THE FOURTH UNIVERSAL DEFINITIONS OF MYOCARDIALINFARCTION. THE UPPER REFERENCE LIMIT (URL) OF TROPONIN, DEFINED THE 99TH PERCENTILE OFcTnI DISTRIBUTION IN A REFERENCE POPULATION, HAS BEEN CONFIRMED THE DECISION THRESHOLDFOR MT DIAGNOSIS. Performed By: #### C MREP ####[facility] Cyftlqxgns[address] [place], [place] [address]Dr. Lilajarrod Rogel CK [Catalytic activity/Vol] 88 U/L Normal 26-192 [facility] Comment on above: Performed By: #### C MREP ####[facility] Zpwalvywhl[address] [place], [place] [address]Dr. Shahbaz Rogel CK.MB [Mass/Vol] 1.38 ng/mL Normal <=3.60 [facility] Comment on above: Performed By: #### C MREP ####[facility] [address]zpsrfop[address] [place], [place] [address]Dr. Shahbaz Rogel HSTROP 7.0 pg/mL Normal 4.0-51.3 [facility] Comment on above: Result Comment: CUT- OFF POINTS HAVE BEEN ESTABLISHED BASED ON THE FOURTH UNIVERSAL DEFINITIONS OF MYOCARDIALINFARCTION. THE UPPER REFERENCE LIMIT (URL) OF TROPONIN, DEFINED THE 99TH PERCENTILE OFcTnI DISTRIBUTION IN A REFERENCE POPULATION, HAS BEEN CONFIRMED THE DECISION THRESHOLDFOR MT DIAGNOSIS. Performed By: #### C MREP ####[facility] Xweciaviyc[address] [place] [address]Dr. Shahbaz Rogel CARDIAC ROSALINA ADMITon 022 CK [Catalytic activity/Vol] 87 U/L Normal 26-192 [facility] Comment on above: Performed By: #### C CINDY PAZ ####[facility] [address] [place] [address]. Shahbaz Rogel CK.MB [Mass/Vol] 1.80 ng/mL Normal <=3.60 [facility] Comment on above: Performed By: #### C CINDY PAZ ####[facility] [address]jddonmejl[address] [place], [place] [address]Dr. Shahbaz Rogel HSTROP 7.6 pg/mL Normal 4.0-51.3 [facility] Comment on above: Result Comment: CUT- OFF POINTS HAVE BEEN ESTABLISHED BASED ON THE FOURTH UNIVERSAL DEFINITIONS OF MYOCARDIALINFARCTION. THE UPPER REFERENCE LIMIT (URL) OF TROPONIN, DEFINED THE 99TH PERCENTILE OFcTnI DISTRIBUTION IN A REFERENCE POPULATION, HAS BEEN CONFIRMED THE DECISION THRESHOLDFOR MT DIAGNOSIS. Performed By: #### C CINDY PAZ ####[facility] [address]ktut[address] [place] [address]Dr. Shahbaz Rogel LEN 67 ng/mL Normal 9-82 [facility] Comment on above: Performed By: #### C CINDY PAZ ####[facility] Ojwunnszov[address] [place] [address]Dr. Shahbaz Rogel CBC AUTO DIFFon 07-04-2022 BASO # 0.0 103/ul Normal 0.0-0.1 [facility] Comment on above: Performed By: #### C BC ####[facility] Livszkucya[address] [place] [id number]. Shahbaz Rogel Basophils/100 WBC (Bld) 0.7 % Normal 0.2-2.0 [facility] Comment on above: Performed By: #### C BC ####[facility] Bomnsavxmc[address] [place] [id number]. Shahbaz Rogel EO # 0.1 103/ul Normal 0.0-0.7 [facility] Comment on above: Performed By: #### C BC ####[facility] Fxahildxbx[address] [place] [address]Dr. Shahbaz Rogel Eosinophils/100 WBC (Bld) 3.4 % Normal 0.9-7.0 [facility] Comment on above: Performed By: #### C BC ####[facility] Mfcoekpxxz[address] [place], [place] [address]Dr. Shahbaz Rogel Erythrocyte distribution width (RBC) [Ratio] 13.3 % Normal 11.0-15.0 [facility] Comment on above: Performed By: #### C BC ####[facility] Mekkxqsveg[address] [place], [place] [address]Dr. Shahbaz Rogel Hematocrit (Bld) [Volume fraction] 42.1 % Normal 36.0-48.0 [facility] Comment on above: Performed By: #### C BC ####[facility] Fcarcmskev[address] [place], [place] [id number]. Shahbaz Rogel Hemoglobin (Bld) [Mass/Vol] 13.3 g/dL Normal 12.0-16.0 [facility] Comment on above: Performed By: #### C BC ####[facility] Ermfxomszr[address] [place] [id number]. Shahbaz Rogel IG # 0.01 10e3/ul Normal 0.00-0.03 [facility] Comment on above: Performed By: #### C BC ####[facility] R[address]rop[address] [place] [address]Dr. Shahbaz Rogel IG % 0.3 % Normal 0.0-0.5 [facility] Comment on above: Performed By: #### C BC ####[facility] Fgppxdzlrw[address] [place] [id number]. Shahbaz Juan F LYMPH # 1.0 103/ul Critically low 1.2-3.8 [facility] Comment on above: Performed By: #### C BC ####[facility] Lnjwwqotax4[address] [place] [id number]. Shahbaz Rogel Lymphocytes/100 WBC (Bld) 35.6 % Normal 20.5-60.0 [facility] Comment on above: Performed By: #### C BC ####[facility] Hpeqkuzenn[address] [place] [address]Dr. Lilajarrod Rogel MANUAL DIFF REQ NO Normal [facility] Comment on above: Performed By: #### C BC ####[facility] Wyjdnainmg[address]64 [place] [address]Dr. Shahbaz Juan F MCH (RBC) [Entitic mass] 27.9 pg Normal 26.7-34.0 [facility] Comment on above: Performed By: #### C BC ####[facility] Chkzwjqrot[address] [place] [address]Dr. Shahbaz Rogel MCHC (RBC) [Mass/Vol] 31.6 g/dL Normal 29.9-35.2 [facility] Comment on above: Performed By: #### C BC ####[facility] Labffdwxpw90[address] [place] [phone]. Shahbaz Juan F MCV (RBC) [Entitic vol] 88.3 fL Normal 81.0-99.0 [facility] Comment on above: Performed By: #### C BC ####[facility] Lficxmesgf8162 [place] [id number]. Shahbaz Juan F MONO # 0.2 103/ul Critically low 0.3-0.8 [facility] Comment on above: Performed By: #### C BC ####[facility] Sdmerjoznv54[address] [place] [address]Dr. Shahbaz Juan F Monocytes/100 WBC (Bld) 7.9 % Normal 1.7-12.0 [facility] Comment on above: Performed By: #### C BC ####[facility] Kaeovcalck[address] [place] [id number]. Shahbaz Rogel NEUT # 1.5 103/ul Normal 1.4-6.5 [facility] Comment on above: Performed By: #### C BC ####[facility] Uhwdbrwemo[address] [place] [address]Dr. Shahbaz Rogel Neutrophils/100 WBC (Bld) 52.1 % Normal 43.0-75.0 [facility] Comment on above: Performed By: #### C BC ####[facility] Tyhbugzsre49[address] [place] [address]Dr. Shahbaz Rogel Platelet mean volume (Bld) [Entitic vol] 9.5 fL Normal 9.5-13.5 [facility] Comment on above: Performed By: #### C BC ####[facility] Shakuoecpq[address] [place] [address]Dr. Shahbaz Rogel PLT 172 103/ul Normal 150-450 [facility] Comment on above: Performed By: #### C BC ####[facility] Aderflxklr[address] [place], [place] [address]Dr. Shahbaz Rogel RBC 4.77 106/ul Normal 4.20-5.40 [facility] Comment on above: Performed By: #### C BC ####[facility] Ebgehqdrcx74[address] [place] [address]Dr. Shahbaz Rogel WBC 2.9 103/ul Critically low 4.0-11.0 [facility] Comment on above: Performed By: #### C BC ####[facility] Yffxvequpk[address] [place], [place] [address]Dr. Shahbaz Rogel CELL COUNT BODY FLUIDon 10-0 -2021 BASOS Normal [facility] Comment on above: Performed By: #### B FCC ####[facility] Mxwusuksfy[address] [place], [place] [address]Dr. Shahbaz Rogel Eosinophils/100 WBC (Bld) 4 % Normal [facility] Comment on above: Performed By: #### B FCC ####[facility] Tmeuabrzdg[address] [place], [place] [address]Dr. Shahbaz Juan F Lymphocytes/100 WBC (Bld) 12 % Normal [facility] Comment on above: Performed By: #### B FCC ####[facility] Jenmtjjgee9[address] [place] [address]Dr. Shahbaz Rogel Monocytes/100 WBC (Bld) 4 % Normal [facility] Comment on above: Performed By: #### B FCC ####[facility] Vbceyhcnde89[address] [place] [address]Dr. Shahbaz Rogel RBC 67 cubic mm Normal [facility] Comment on above: Performed By: #### B FCC ####[facility] Sbhmbmxoae7080 [place] [address]Dr. Shahbaz Rogel SEGS 80 % Normal [facility] Comment on above: Performed By: #### B FCC ####[facility] Kfpxsqdvkf[address] [place], [place] [address]Dr. Shahbaz Rogel WBC BODY FLUID 223 cubic mm Normal [facility] Comment on above: Performed By: #### B FCC ####[facility] Foukupydqr67[address] [place], [place] [address]Dr. Shahbaz Rogel CULTURE OTHERon 07-04-2022 CULTURE OTHER Culture Observations : NO GROWTH AT 48 HOURS. Normal [facility] Comment on above: Performed By: #### O THCX ####[facility] Wzwjqvaypb6[address] [place], [place] [address]Dr. Shahbaz Rogel CYTOLOGYon 07-04-2022 SENT TO REF LAB 07/04/22 Normal [facility] Comment on above: Performed By: #### C YTO ####[facility] Ehpcoecnaz[address] [place], [place] [address]Dr. Shahbaz Rogel Covid-19 PCR (CVDTB)on SARS-CoV-2 (COVID-19) RNA PAVAN+probe Ql (Unsp spec) Not detected Normal NOT DETECTED [facility] Comment on above: Result Comment: When diagnostic [...] for this test is supported by the [place] of Health and Human Service's declaration that [...] be used). Performed By: #### C VDTBH ####[facility] Puzsnuqmpi[address] [place], [place] [address]Dr. Shahbaz Juan F GRAM STAINon 07-04-2022 COMMENTS NO ORGANISMS OBSERVED Normal [facility] Comment on above: Performed By: #### G STAIN ####[facility] Vcfpvrrxdi18[address] [place], [place] [address]Dr. Lilajarrod Juan F DIPHTHEROIDS Normal [facility] Comment on above: Performed By: #### G STAIN ####[facility] Mataquuyex[address] [place], [place] [address]Dr. Lilajarrod Rogel EPITHELIALS Normal [facility] Comment on above: Performed By: #### G STAIN ####[facility] Thtxskbsxh[address] [place], [place] [address]Dr. Lilajarrod Rogel FUNGAL ELEMENTS Normal [facility] Comment on above: Performed By: #### G STAIN ####[facility] Mnpjrgdsjj659[address] [place], [place] [address]Dr. Shahbaz Rogel GRAM NEG BACILLI Normal [facility] Comment on above: Performed By: #### G STAIN ####[facility] Omzrohemgd[address] [place] [address]Dr. Shahbaz Rogel GRAM NEG DIPPLOCOCCI Normal [facility] Comment on above: Performed By: #### G STAIN ####[facility] Fjiqfojmfz0753 [place] [address]Dr. Shahbaz Rogel GRAM POS BACILLI Normal [facility] Comment on above: Performed By: #### G STAIN ####[facility] Osfoijvzkw[address] [place] [address]Dr. Shahbaz Rogel GRAM POSITIVE COCCI Normal [facility] Comment on above: Performed By: #### G STAIN ####[facility] Hlvzqudnjh3765 [place] [address]Dr. Shahbaz Rogel GRAM STAIN SOURCE Rt Lower Lobe Bronch ial Washing Normal [facility] Comment on above: Performed By: #### G STAIN ####[facility] Olzggvdxlh0986 [place] [address]Dr. Shahbaz Rogel GS_DIPTH Normal [facility] Comment on above: Performed By: #### G STAIN ####[facility] Uibxlmnewd[address] [place], [place] [address]Dr. Shahbaz Rogel WBC RARE Normal [facility] Comment on above: Performed By: #### G STAIN ####[facility] Qqchnurlmv[address] [place], [place] [address]Dr. Shahbaz Rogel PROF 14(COMP METB)on 022 Albumin [Mass/Vol] 3.6 g/dL Normal 3.4-5.0 [facility] Comment on above: Performed By: #### C JACKSON CMADM ####[facility] Dtlgvdaxkj419[address] [place], [place] [address]Dr. Shahbaz Rogel Albumin/Globulin [Mass ratio] 1.1 {ratio} Normal [facility] Comment on above: Performed By: #### C JACKSON, CMADM ####[facility] Xuyocxbdit[address] [place], [place] [address]Dr. Shahbaz Rogel ALP [Catalytic activity/Vol] 102 U/L Normal 46-116 [facility] Comment on above: Performed By: #### C JACKSON, CMADM ####[facility] Hjryanmruf[address] [place] [address]Dr. Shahbaz Rogel ALT [Catalytic activity/Vol] 19 U/L Normal 14-59 [facility] Comment on above: Performed By: #### C JACKSON, CMADM ####[facility] Ueuzrcmyxw15[address] [place] [address]Dr. Shahbaz Rogel Anion gap [Moles/Vol] 9.5 mmol/L Normal [facility] Comment on above: Performed By: #### C JACKSON, CMADM ####[facility] Gitzvfgjeu060[address] [place] [address]Dr. Shahbaz Rogel AST [Catalytic activity/Vol] 19 U/L Normal 15-37 [facility] Comment on above: Performed By: #### C JACKSON, CMADM ####[facility] Kondecijzh6[address] [place] [address]Dr. Shahbaz Rogel Bilirubin [Mass/Vol] 0.3 mg/dL Normal 0.2-1.0 [facility] Comment on above: Performed By: #### C JACKSON, CMADM ####[facility] Usncdrlblu8[address] [place] [address]Dr. Shahbaz Rogel Calcium [Mass/Vol] 8.8 mg/dL Normal 8.5-10.1 [facility] Comment on above: Performed By: #### C JACKSON, CMADM ####[facility] Lzglwujddq[address] [place], [place] [address]Dr. Shahbaz Rogel Chloride [Moles/Vol] 107 mmol/L Normal 98-107 [facility] Comment on above: Performed By: #### C JACKSON, CMADM ####[facility] Nfpqmqhfwf[address] [place], [place] [address]Dr. Shahbaz Rogel CO2 [Moles/Vol] 29.5 mmol/L Normal 21.0-32.0 [facility] Comment on above: Performed By: #### C JACKSON, CMADM ####[facility] Gavmpzgbut[address] [place], [place] [address]Dr. Shahbaz Rogel Creatinine [Mass/Vol] 0.97 mg/dL Normal 0.55-1.02 [facility] Comment on above: Performed By: #### C JACKSON, CMADM ####[facility] Grzcrfbmob[address] [place], [place] [address]Dr. Shahbaz Rogel EGFR-AF ALBANIAN >60 Normal >=60 [facility] Comment on above: Performed By: #### C JACKSON, CMADM ####[facility] Sozkbhkqox[address] [place], [place] [address]Dr. Shahbaz Rogel EGFR-NON AF ALBANIAN 59 mL/min/1.73m2 Critically low >=60 [facility] Comment on above: Performed By: #### C JACKSON, CMAROXANNA ####[facility] Zcrzbzaguo34[address] [place] [address]Dr. Shahbaz Rogel Globulin (S) [Mass/Vol] 3.2 g/dL Normal [facility] Comment on above: Performed By: #### C JACKSON, CMADM ####[facility] Gtceczvihk[address] [place] [address]Dr. Shahbaz Rogel Glucose [Mass/Vol] 89 mg/dL Normal 74-106 [facility] Comment on above: Performed By: #### C JACKSON, CMAROXANNA ####[facility] Fllabbynot[address] [place], [place] [address]Dr. Shahbaz Rogel Potassium [Moles/Vol] 4.0 mmol/L Normal 3.5-5.1 [facility] Comment on above: Performed By: #### C JACKSON, CMAROXANNA ####[facility] Qpaiwpioye[address] [place], [place] [address]Dr. Shahbaz Rogel Protein [Mass/Vol] 6.8 g/dL Normal 6.4-8.2 [facility] Comment on above: Performed By: #### C JACKSON, CINDY ####[facility] Zotkbeqxnq[address] [place], [place] [address]Dr. Shahbaz Rogel Sodium [Moles/Vol] 142 mmol/L Normal 136-145 [facility] Comment on above: Performed By: #### C JACKSON, CMADM ####[facility] Qsgjkjuuff[address] [place], [place] [address]Dr. Shahbaz Rogel Urea nitrogen [Mass/Vol] 11.0 mg/dL Normal 7.0-18.0 [facility] Comment on above: Performed By: #### C CINDY PAZ ####[facility] Xzgsujftdl[address] [place], [place] [address]Dr. Shahbaz Rogel Urea nitrogen/Creatinine [Mass ratio] 11.3 mg/mg Normal [facility] Comment on above: Performed By: #### C JACKSON CMADM ####[facility] Gdlkpuynnv[address] [place], [place] [address]Dr. Shahbaz Rogel T4on 07-04-2022 T4 [Mass/Vol] 4.70 ug/dL Critically low 4.80-13.90 [facility] Comment on above: Performed By: #### T SH, T4 ####[facility] Uujpvusfxd[address] [place] [address]Dr. Shahbaz Rogel TSHon 07-04-2022 TSH 0.359 uIU/mL Normal 0.358-3.74 0 [facility] Comment on above: Performed By: #### T SH, T4 ####[facility] Blsqbbizto6739 [place] [address]Dr. Shahbaz Rogel XR CHEST 1 Von 07-04-2022 XR CHEST 1 V Normal [facility] XR CHEST 1 V Normal [facility] CHLAMYDIA PNEUMONIAE IgG IgM IgAon 06-27-2022 Chlamydia pneumoniae IgA <1:16 Normal Neg:<1:16 [facility] Comment on above: Performed By: #### C HLMPNE ####[facility] Ftxfsyxlny[address] [place], [place] [address]Dr. [facility] Chlamydia pneumoniae IgG <1:16 Normal Neg:<1:16 [facility] Comment on above: Performed By: #### C HLMPNE ####[facility] Yjbjoszlve[address] [place], [place] [address]Dr. jarrod [facility] Chlamydia pneumoniae IgM <1:10 Normal Neg:<1:10 [facility] Comment on above: Performed By: #### C HLMPNE ####[facility] Xmgoyusqif4[address] [place] [address]Dr. Shahbaz Rgoel Test Information: Comment Normal [facility] Comment on above: Result Comment: This [...] or procedure. Performed By: #### C HLMPNE ####[facility] Jijfmgnbxy[address] [place], [place] [address]Dr. Shahbaz Rogel Covid-19 PCR (CVDTB)on 06-03 SARS-CoV-2 (COVID-19) RNA PAVAN+probe Ql (Unsp spec) Not detected Normal NOT DETECTED [facility] Comment on above: Result Comment: This test is not yet approved or cleared by the [place] FDA. When there are no FDA-approved or cleared tests available, and other criteria are met, FDA can make tests available under an emergency access mechanism called an Emergency Use Authorization (EUA). The EUA for this test is supported by the [place] of Health and Human Service's (HHS's) declaration [...] with SARS-CoV-2. Performed By: #### C VDTBH ####[facility] Usrcfvakqn[address] [place], [place] [address]Dr. Shahbaz Rogel CYCLIC CITRULLINATED PEPTIDE AB (CCP)on 06-25-2022 CCP Antibodies IgG/IgA 13 units Normal 0-[address] [facility] Comment on above: Result Comment: Nega tive <20 Weak positive 20 - 39 Moderate positive 40 - 59 Strong positive >59 Performed By: #### C CPAB ####[facility] Irqdzykryx[address] [place], [place] [address]Dr. Shahbaz Rogel ANTI NEUTROPHIL CYTOPLASMIC AB (ANCA) PRon 06-24-2022 Anti-MPO Antibodies <0.2 Normal 0.0-0.9 [facility] Comment on above: Result Comment: Perf ormed at: BN Performed By: #### A NCAP ####[facility] Anttrraubs[address] [place], [place] [address]Dr. Shahbaz Rogel Anti-PR3 Antibodies 5.0 units Critically high 0.0-0.9 [facility] Comment on above: Result Comment: Perf ormed at: BN Performed By: #### A NCAP ####[facility] Ifatwwdiee[address] [place] [address]Dr. Shahbaz Rogel Atypical pANCA <1:20 Normal Neg:<1:20 [facility] Comment on above: Result Comment: The atypical pANCA pattern has been observed in a significantpercentage of patients with ulcerative colitis, primary sclerosingcholangitis and autoimmune hepatitis.Performed at: CB Performed By: #### A NCAP ####[facility] Liyroxdtmk[address] [place] [address]Dr. Shahbaz Rogel Cytoplasmic (C-ANCA) <1:20 Normal Neg:<1:20 [facility] Comment on above: Result Comment: Perf ormed at: CB Performed By: #### A NCAP ####[facility] Xiouphivyf[address] [place] [address]Dr. Shahbaz Rogel Perinuclear (P-ANCA) 1:80 Critically high Neg:<1:20 [facility] Comment on above: Result Comment: The presence of positive fluorescence exhibiting P-ANCA or C-ANCApatterns alone is not specific for the diagnosis of Ada'sGranulomatosis (WG) or microscopic polyangiitis. Decisions abouttreatment should not be based solely on ANCA IFA results. TheInternational ANCA Group Consensus recommends follow up testing ofpositive sera with both CO-3 and MPO-ANCA enzyme immunoassays. Asmany as 5% serum samples are positive only by EIA.Ref. AM J Clin Pathol 1999;111:507-513.Performed at: CB Performed By: #### A NCAP ####[facility] Qndwifrdcj[address] [place] [address]Dr. Shahbaz Rogel ANTIGLOMERULAR BASEMENT MEMB ANTOINE ABSon 06-24-2022 Anti-GBM Antibodies <0.2 Normal 0.0-0.9 [facility] Comment on above: Performed By: #### A GBM ####[facility] Mqmsnykrrw[address] [place] [id number]. Shahbaz Rogel SHAHANA EIA W/REFLEX 5 BIOMARKER Son 06-23-2022 SHAHANA Direct Negative Normal Negative [facility] Comment on above: Performed By: #### A NARF ####[facility] Omewsclbcc[address] [place], [place] [address]Dr. Shahbaz Rogel ANTISCLERODERMA ABon 022 Antiscleroderma-70 Antibodies <0.2 Normal 0.0-0.9 [facility] Comment on above: Performed By: #### A NSCLER ####[facility] Jsszyjqiae[address] [place], [place] [address]Dr. Shahbaz Rogel RHEUMATOID FACTORon 06-23-20 RA Latex Turbid. <10.0 Normal <14.0 [facility] Comment on above: Performed By: #### R F ####[facility] Kugireemld[address] [place], [place] [address]Dr. Shahbaz Rogel CBC AUTO DIFFon 06-22-2022 BASO # 0.0 103/ul Normal 0.0-0.1 [facility] Comment on above: Performed By: #### C BC ####[facility] Joxmsgcsii[address] [place], [place] [address]Dr. Lilajarrod Rogel Basophils/100 WBC (Bld) 0.5 % Normal 0.2-2.0 [facility] Comment on above: Performed By: #### C BC ####[facility] Zkdybzrytw[address] [place], [place] [address]Dr. Shahbaz Rogel EO # 0.1 103/ul Normal 0.0-0.7 [facility] Comment on above: Performed By: #### C BC ####[facility] Uhetfmshfe[address] [place], [place] [address]Dr. Lilajarrod Rogel Eosinophils/100 WBC (Bld) 3.4 % Normal 0.9-7.0 [facility] Comment on above: Performed By: #### C BC ####[facility] Rxvatlmtvn[address] [place], [place] [address]Dr. Shahbaz Rogel Erythrocyte distribution width (RBC) [Ratio] 13.2 % Normal 11.0-15.0 [facility] Comment on above: Performed By: #### C BC ####[facility] Iofztyarzc[address] [place] [address]Dr. Shahbaz Rogel Hematocrit (Bld) [Volume fraction] 45.6 % Normal 36.0-48.0 [facility] Comment on above: Performed By: #### C BC ####[facility] Wveldhyuxg[address] [place] [address]Dr. Shahbaz Rogel Hemoglobin (Bld) [Mass/Vol] 14.7 g/dL Normal 12.0-16.0 [facility] Comment on above: Performed By: #### C BC ####[facility] Rkavaekkzy[address] [place] [address]Dr. Shahbaz Rogel IG # 0.01 10e3/ul Normal 0.00-0.03 [facility] Comment on above: Performed By: #### C BC ####[facility] Apfnvvkfsx[address] [place], [place] [address]Dr. Shahbaz Rogel IG % 0.3 % Normal 0.0-0.5 [facility] Comment on above: Performed By: #### C BC ####[facility] Oozgedvryu[address] [place] [address]Dr. Shahbaz Rogel LYMPH # 1.0 103/ul Critically low 1.2-3.8 [facility] Comment on above: Performed By: #### C BC ####[facility] Uelkpfpjeq[address] [place] [address]Dr. Shahbaz Rogel Lymphocytes/100 WBC (Bld) 25.7 % Normal 20.5-60.0 [facility] Comment on above: Performed By: #### C BC ####[facility] Obnorweges[address]25 [place] [address]DrChen Rogel MANUAL DIFF REQ NO Normal [facility] Comment on above: Performed By: #### C BC ####[facility] Ykznsafzuf[address] [place], [place] [address]DrChen Rogel MCH (RBC) [Entitic mass] 28.1 pg Normal 26.7-34.0 [facility] Comment on above: Performed By: #### C BC ####[facility] Isehrkvhww[address] [place], [place] [address]Dr. Shahbaz Juan F MCHC (RBC) [Mass/Vol] 32.2 g/dL Normal 29.9-35.2 [facility] Comment on above: Performed By: #### C BC ####[facility] Zsipsaunye[address] [place] [address]Dr. Shahbaz Juan F MCV (RBC) [Entitic vol] 87.2 fL Normal 81.0-99.0 [facility] Comment on above: Performed By: #### C BC ####[facility] Uuxxajukah[address] [place] [address]Dr. Shahbaz Juan F MONO # 0.2 103/ul Critically low 0.3-0.8 [facility] Comment on above: Performed By: #### C BC ####[facility] Goounudltl[address] [place] [address]Dr. Shahbaz Rogel Monocytes/100 WBC (Bld) 6.0 % Normal 1.7-12.0 [facility] Comment on above: Performed By: #### C BC ####[facility] Nykahgnlci[address] [place], [place] [address]Dr. Shahbaz Juan F NEUT # 2.5 103/ul Normal 1.4-6.5 [facility] Comment on above: Performed By: #### C BC ####[facility] Qpcyzuihli[address] [place] [address]Dr. Shahbaz Juan F Neutrophils/100 WBC (Bld) 64.1 % Normal 43.0-75.0 [facility] Comment on above: Performed By: #### C BC ####[facility] Gaqqhxhhjc[address] [place] [address]Dr. Shahbaz Juan F Platelet mean volume (Bld) [Entitic vol] 9.4 fL Critically low 9.5-13.5 [facility] Comment on above: Performed By: #### C BC ####[facility] Ttldavbtwp[address] [place] [address]Dr. Shahbaz Rogel PLT 212 103/ul Normal 150-450 [facility] Comment on above: Performed By: #### C BC ####[facility] Gubrqeexvi[address] [place] [address]Dr. Lilajarrod Juan F RBC 5.23 106/ul Normal 4.20-5.40 [facility] Comment on above: Performed By: #### C BC ####[facility] Yhpiutizhl[address] [place] [address]Dr. Shahbaz Rogel WBC 3.9 103/ul Critically low 4.0-11.0 [facility] Comment on above: Performed By: #### C BC ####[facility] Keqxrywsmn[address] [place] [address]Dr. Shahbaz Rogel PROF 14(COMP METB)on 022 Albumin [Mass/Vol] 4.1 g/dL Normal 3.4-5.0 [facility] Comment on above: Performed By: #### C MP ####[facility] Tbxavndxxx[address] [place], [place] [address]Dr. Shahbaz Rogel Albumin/Globulin [Mass ratio] 1.1 {ratio} Normal [facility] Comment on above: Performed By: #### C MP ####[facility] Xahemumywg[address] [place], [place] [address]Dr. Shahbaz Rogel ALP [Catalytic activity/Vol] 133 U/L Critically high 46-116 [facility] Comment on above: Performed By: #### C MP ####[facility] Sqymeknmsa[address] [place], [place] [address]Dr. Shahbaz Rogel ALT [Catalytic activity/Vol] 29 U/L Normal 14-59 [facility] Comment on above: Performed By: #### C MP ####[facility] Ajrpktjbgc185[address] [place], [place] [address]Dr. Shahbaz Rogel Anion gap [Moles/Vol] 10.9 mmol/L Normal [facility] Comment on above: Performed By: #### C MP ####[facility] Iiggsaekkr45[address] [place], [place] [address]Dr. Shahbaz Rogel AST [Catalytic activity/Vol] 23 U/L Normal 15-37 [facility] Comment on above: Performed By: #### C MP ####[facility] Iotpthgqsx14[address] [place], [place] [address]Dr. Shahbaz Rogel Bilirubin [Mass/Vol] 0.3 mg/dL Normal 0.2-1.0 [facility] Comment on above: Performed By: #### C MP ####[facility] Zofejgduhp05[address] [place], [place] [address]Dr. Shahbaz Rogel Calcium [Mass/Vol] 9.1 mg/dL Normal 8.5-10.1 [facility] Comment on above: Performed By: #### C MP ####[facility] Dnuvnxamgf6[address] [place], [place] [address]Dr. Shahbaz Juan F Chloride [Moles/Vol] 103 mmol/L Normal 98-107 [facility] Comment on above: Performed By: #### C MP ####[facility] Etmeryssju29[address] [place], [place] [address]Dr. Shahbaz Juan F CO2 [Moles/Vol] 30.8 mmol/L Normal 21.0-32.0 [facility] Comment on above: Performed By: #### C MP ####[facility] Digzvbksvy988[address] [place], [place] [address]Dr. Shahbaz Juan F Creatinine [Mass/Vol] 1.02 mg/dL Normal 0.55-1.02 [facility] Comment on above: Performed By: #### C MP ####[facility] Clhxenfuzq897[address] [place], [place] [address]Dr. Lilajarrod Juan F EGFR-AF ALBANIAN >60 Normal >=60 [facility] Comment on above: Performed By: #### C MP ####[facility] Kprltudgtd1[address] [place], [place] [address]Dr. Lilajarrod Juan F EGFR-NON AF ALBANIAN 56 mL/min/1.73m2 Critically low >=60 [facility] Comment on above: Performed By: #### C MP ####[facility] Azdltatpbi2[address] [place], [place] [address]Dr. Shahbaz Rogel Globulin (S) [Mass/Vol] 3.7 g/dL Normal [facility] Comment on above: Performed By: #### C MP ####[facility] Wkjjpmcykz18[address] [place], [place] [address]Dr. Shahbaz Rogel Glucose [Mass/Vol] 80 mg/dL Normal 74-106 [facility] Comment on above: Performed By: #### C MP ####[facility] [address]qwnihpmd[address] [place] [address]Dr. Shahbaz Juan F Potassium [Moles/Vol] 3.7 mmol/L Normal 3.5-5.1 [facility] Comment on above: Performed By: #### C MP ####[facility] Zmnwjfghsa[address] [place] [address]Dr. Lilajarrod Juan F Protein [Mass/Vol] 7.8 g/dL Normal 6.4-8.2 [facility] Comment on above: Performed By: #### C MP ####[facility] Hxesiqyhis064[address] [place], [place] [address]Dr. Lilajarrod Juan F Sodium [Moles/Vol] 141 mmol/L Normal 136-145 [facility] Comment on above: Performed By: #### C MP ####[facility] Tbwkujwyjr2649[address] [place], [place] [address]Dr. Lilajarrod Juan F Urea nitrogen [Mass/Vol] 10.0 mg/dL Normal 7.0-18.0 [facility] Comment on above: Performed By: #### C MP ####[facility] Royjmogiiz078[address] [place], [place] [address]Dr. Lilajarrod Juan F Urea nitrogen/Creatinine [Mass ratio] 9.8 mg/mg Normal [facility] Comment on above: Performed By: #### C MP ####[facility] Chrluelesv1969[address] [place], [place] [address]Dr. Shhabaz Rogel SED RATE MONTVILLEERGRENon 2021 SED RATE 17 mm/hr Normal <=30 [facility] Comment on above: Performed By: #### S EDR ####[facility] Kmwkfmxaaj959[address] [place], [place] [address]Dr. Shahbaz Rogel CT CHEST HI RESOLUTIONon CT CHEST HI RESOLUTION Normal Th [facility] XR ANKLE RT MIN 3 VIEWSon XR ANKLE RT MIN 3 VIEWS Normal [facility] CT CHEST WO CONon 03-03-2022 CT CHEST WO CON Normal [facility] CT CSPINE WO CONon 2 CT CSPINE WO CON Normal [facility] XR CHEST 2 Von 03-03-2022 XR CHEST 2 V Normal [facility] XR STERNUM MIN 2 VIEWSon XR STERNUM MIN 2 VIEWS Normal Th e [facility] CT HEAD WO CONon 03-02-2022 CT HEAD WO CON Normal [facility] CBC AUTO DIFFon 01-21-2022 BASO # 0.0 103/ul Normal 0.0-0.1 [facility] Comment on above: Performed By: #### C BC ####[facility] Kyhhxkrpuj[address] [place] [address]Dr. Shahbaz Rogel Basophils/100 WBC (Bld) 0.0 % Critically low 0.2-2.0 [facility] Comment on above: Performed By: #### C BC ####[facility] Ixgyecsnrh4469[address] [place], [place] [address]Dr. Shahbaz Rogel EO # 0.0 103/ul Normal 0.0-0.7 [facility] Comment on above: Performed By: #### C BC ####[facility] Ihemrfkvcs25[address] [place] [address]Dr. Shahbaz Rogel Eosinophils/100 WBC (Bld) 0.0 % Critically low 0.9-7.0 [facility] Comment on above: Performed By: #### C BC ####[facility] Twvmqioqrf0995[address] [place], [place] [address]Dr. Shahbaz Rogel Erythrocyte distribution width (RBC) [Ratio] 14.2 % Normal 11.0-15.0 [facility] Comment on above: Performed By: #### C BC ####[facility] Kvcppmzohf8[address] [place], [place] [address]DrChen Rogel Hematocrit (Bld) [Volume fraction] 38.9 % Normal 36.0-48.0 [facility] Comment on above: Performed By: #### C BC ####[facility] Qgxjkzysgb8710[address] [place], [place] [address]DrChen Rogel Hemoglobin (Bld) [Mass/Vol] 11.8 g/dL Critically low 12.0-16.0 [facility] Comment on above: Performed By: #### C BC ####[facility] Rkwzcglfqx3269 [place] [address]Dr. Shahbaz Rogel IG # 0.03 10e3/ul Normal 0.00-0.03 [facility] Comment on above: Performed By: #### C BC ####[facility] Jpywcvsrcj0540 [place] [address]Dr. Shahbaz Rogel IG % 0.4 % Normal 0.0-0.5 [facility] Comment on above: Performed By: #### C BC ####[facility] Wpkebjmrae2390[address] [place], [place] [address]DrChen Rogel LYMPH # 0.8 103/ul Critically low 1.2-3.8 [facility] Comment on above: Performed By: #### C BC ####[facility] Lxxlqgolme7640[address] [place], [place] [address]Dr. Shahbaz Rogel Lymphocytes/100 WBC (Bld) 10.3 % Critically low 20.5-60.0 [facility] Comment on above: Performed By: #### C BC ####[facility] Hyfogqfouo[address] [place], [place] [address]DrChen Rogel MANUAL DIFF REQ NO Normal [facility] Comment on above: Performed By: #### C BC ####[facility] Jhxgkqveyb[address] [place], [place] [address]Dr. Shahbaz Rogel MCH (RBC) [Entitic mass] 27.1 pg Normal 26.7-34.0 [facility] Comment on above: Performed By: #### C BC ####[facility] Jkgcspzrdd3634[address] [place], [place] [address]Dr. Lilajarrod Rogel MCHC (RBC) [Mass/Vol] 30.3 g/dL Normal 29.9-35.2 [facility] Comment on above: Performed By: #### C BC ####[facility] Fychzgmpca[address] [place] [address]Dr. Shahbaz Rogel MCV (RBC) [Entitic vol] 89.2 fL Normal 81.0-99.0 [facility] Comment on above: Performed By: #### C BC ####[facility] Jgufypaass7[address] [place] [address]Dr. Shahbaz Rogel MONO # 0.4 103/ul Normal 0.3-0.8 [facility] Comment on above: Performed By: #### C BC ####[facility] Blplpyyhrv34[address] [place] [id number]. Shahbaz Rogel Monocytes/100 WBC (Bld) 4.7 % Normal 1.7-12.0 [facility] Comment on above: Performed By: #### C BC ####[facility] Jdtlwrkvqf6780 [place] [address]Dr. Shahbaz Rogel NEUT # 6.6 103/ul Critically high 1.4-6.5 [facility] Comment on above: Performed By: #### C BC ####[facility] Fkupltiauu3750[address] [place], [place] [address]Dr. Shahbaz Rogel Neutrophils/100 WBC (Bld) 84.6 % Critically high 43.0-75.0 [facility] Comment on above: Performed By: #### C BC ####[facility] Zfmarawaaa3405[address] [place], [place] [address]Dr. Shahbaz Rogel Platelet mean volume (Bld) [Entitic vol] 10.0 fL Normal 9.5-13.5 [facility] Comment on above: Performed By: #### C BC ####[facility] Slaoiakebp[address] [place] [address]Dr. Shahbaz Rogel PLT 165 103/ul Normal 150-450 [facility] Comment on above: Performed By: #### C BC ####[facility] Lmwpmhdhco[address] [place], [place] [id number]. Shahbaz Rogel RBC 4.36 106/ul Normal 4.20-5.40 [facility] Comment on above: Performed By: #### C BC ####[facility] Ptxwrckciv5[address] [place] [address]Dr. Shahbaz Rogel WBC 7.8 103/ul Normal 4.0-11.0 [facility] Comment on above: Performed By: #### C BC ####[facility] Vazfwwcymr[address] [place], [place] [address]Dr. Shahbaz Rogel ER URINE PROFILEon 2 Bilirubin Ql (U) Negative Normal NEGATIVE [facility] Comment on above: Performed By: #### E RUR ####[facility] Gidogulicl3565[address] [place], [place] [address]Dr. Shahbaz Rogel Clarity (U) CLEAR Normal CLEAR [facility] Comment on above: Performed By: #### E RUR ####[facility] Pyregqwbnf208[address] [place], [place] [address]Dr. Shahbaz Rogel Color (U) LT. YELLOW Normal YELLOW [facility] Comment on above: Performed By: #### E RUR ####[facility] Eqotatfgdg6737[address] [place], [place] [address]Dr. Shahbaz Rogel ERUAHD A micrscopic examina tion will be performed if indicated. Normal [facility] Comment on above: Performed By: #### E RUR ####[facility] Ospmbvqnkl8770[address] [place], [place] [address]Dr. Shahbaz Rogel Glucose Ql (U) Negative Normal NEGATIVE [facility] Comment on above: Performed By: #### E RUR ####[facility] Cilhdynrfk6350[address] [place], [place] [address]Dr. Yilan Rogel Hemoglobin Ql (U) Negative Normal NEGATIVE [facility] Comment on above: Performed By: #### E RUR ####[facility] Iwcxdhflhx[address]64[address] [place], [place] [address]Dr. Yilan Rogel Ketones Ql (U) Negative Normal NEGATIVE [facility] Comment on above: Performed By: #### E RUR ####[facility] Udrsuurzwb55[address] [place], [place] [address]Dr. Yilan Rogel LEUKOCYTES Negative Normal NEGATIVE [facility] Comment on above: Performed By: #### E RUR ####[facility] Mgjhxmisrc398[address] [place], [place] [address]Dr. Yilan Rogel Nitrite Ql (U) Negative Normal NEGATIVE [facility] Comment on above: Performed By: #### E RUR ####[facility] Dplnwhsyfy9440 [place] [id number]. Shahbaz Rogel pH (U) 6.0 [pH] Normal 5-9 [facility] Comment on above: Performed By: #### E RUR ####[facility] Suhfzqovqd79[address] [place] [address]Dr. Lilajarrod Rogel SPEC GRAVITY 1.020 Normal 1.005-<=1. 025 [facility] Comment on above: Performed By: #### E RUR ####[facility] Qanvrtfrgw2024 [place] [address]Dr. Shahbaz Rogel UA PROTEIN Negative Normal NEGATIVE/ TRACE [facility] Comment on above: Performed By: #### E RUR ####[facility] Xzgkvilvsu0790 [place] [address]Dr. Shahbaz Rogel UR MICRO IND NOT INDICATED Normal [facility] Comment on above: Performed By: #### E RUR ####[facility] Sjquftifws3263 [place] [address]Dr. Shahbaz Rogel Urobilinogen Qn (U) 0.2 {Melida'U}/dL Normal 0.2 - 1. 0 [facility] Comment on above: Performed By: #### E RUR ####[facility] Nhbbdexadn4[address] [place] [address]Dr. Shahbaz Juan F POINT OF CARE GLUCOSEon 01-01 Glucose [Mass/Vol] 151 mg/dL Critically high 74-106 [facility] Comment on above: Performed By: #### P OCGLUC ####[facility] Ulbycyqvgs5446 [place] [address]Dr. Shahbaz Rogel Glucose [Mass/Vol] 248 mg/dL Critically high 74-106 [facility] Comment on above: Performed By: #### P OCGLUC ####[facility] Uyjdvcogdd3225 [place] [address]Dr. Shahbaz Rogel PROF 14(COMP METB)on 022 Albumin [Mass/Vol] 2.8 g/dL Critically low 3.4-5.0 [facility] Comment on above: Performed By: #### C MP ####[facility] Kogcxnfavs70[address] [place] [id number]. Shahbaz Rogel Albumin/Globulin [Mass ratio] 0.9 {ratio} Normal [facility] Comment on above: Performed By: #### C MP ####[facility] Yxwggptice9[address] [place] [id number]. Shahbaz Rogel ALP [Catalytic activity/Vol] 90 U/L Normal 46-116 [facility] Comment on above: Performed By: #### C MP ####[facility] Vfyzpdlgat8113 [place] [address]Dr. Shahbaz Rogel ALT [Catalytic activity/Vol] 20 U/L Normal 14-59 [facility] Comment on above: Performed By: #### C MP ####[facility] Ahagnmlaph3104 [place] [address]Dr. Shahbaz Rogel Anion gap [Moles/Vol] 8.9 mmol/L Normal [facility] Comment on above: Performed By: #### C MP ####[facility] Wxxvnsfezn342[address] [place], [place] [address]Dr. Shahbaz Rogel AST [Catalytic activity/Vol] 14 U/L Critically low 15-37 [facility] Comment on above: Performed By: #### C MP ####[facility] Wddlfgxcym27[address] [place], [place] [address]Dr. Shahbaz Rogel Bilirubin [Mass/Vol] 0.1 mg/dL Critically low 0.2-1.3 [facility] Comment on above: Performed By: #### C MP ####[facility] Rnusulputz073[address] [place], [place] [address]Dr. Shahbaz Rogel Calcium [Mass/Vol] 8.2 mg/dL Critically low 8.5-10.[address] [facility] Comment on above: Performed By: #### C MP ####[facility] Xaaqrjamhm1768[address] [place], [place] [address]Dr. Shahbaz Rogel Chloride [Moles/Vol] 110 mmol/L Critically high 98-107 [facility] Comment on above: Performed By: #### C MP ####[facility] Nzlydhazzg5814 [place] [address]Dr. Shahbaz Rogel CO2 [Moles/Vol] 28.0 mmol/L Normal 22.0-30.0 [facility] Comment on above: Performed By: #### C MP ####[facility] Ofyjudqjyn8826 [place] [address]Dr. Shahbaz Rogel Creatinine [Mass/Vol] 0.78 mg/dL Normal 0.52-1.04 [facility] Comment on above: Performed By: #### C MP ####[facility] Mmvouwwxsf1369 [place] [address]Dr. Shahbaz Rogel EGFR-AF ALBANIAN >60 Normal >=60 [facility] Comment on above: Performed By: #### C MP ####[facility] Pgaibkycjd14[address] [place], [place] [address]Dr. Shahbaz Rogel EGFR-NON AF [place]IAN >60 Normal >=60 [facility] Comment on above: Performed By: #### C MP ####[facility] Zdaruvsxse959[address] [place], [place] [address]Dr. Shahbaz Rogel Globulin (S) [Mass/Vol] 3.1 g/dL Normal [facility] Comment on above: Performed By: #### C MP ####[facility] Hwrmqvdomr[address] [place], [place] [address]Dr. Shahbaz Rogel Glucose [Mass/Vol] 121 mg/dL Critically high 74-106 [facility] Comment on above: Performed By: #### C MP ####[facility] Yllpvuigie7890[address] [place], [place] [address]Dr. Shahbaz Rogel Potassium [Moles/Vol] 3.9 mmol/L Normal 3.4-5.0 [facility] Comment on above: Performed By: #### C MP ####[facility] Ztbcwjgvge[address]17[address] [place], [place] [address]Dr. Shahbaz Rogel Protein [Mass/Vol] 5.9 g/dL Critically low 6.1-8.[address] [facility] Comment on above: Performed By: #### C MP ####[facility] Ydipsnnrqr8306 [place] [address]Dr. Shahbaz Rogel Sodium [Moles/Vol] 143 mmol/L Normal 137-145 [facility] Comment on above: Performed By: #### C MP ####[facility] Boyhqvcvbq8979[address] [place], [place] [address]Dr. Shahbaz Rogel Urea nitrogen [Mass/Vol] 26.0 mg/dL Critically high 7.0-18.0 [facility] Comment on above: Performed By: #### C MP ####[facility] Jlkmzeiwef[address] [place], [place] [address]Dr. Shahbaz Rogel Urea nitrogen/Creatinine [Mass ratio] 33.3 mg/mg Normal [facility] Comment on above: Performed By: #### C MP ####[facility] Foplwtmzqa3449[address] [place], [place] [address]Dr. Shahbaz Rogel GGWEV-4-VYFHSBZTMZGcs 2021 Kabur-4-Gqgyomrbjbt, Serum 154 mg/dL Normal 101-187 [facility] Comment on above: Performed By: #### A LPHA-1 ####[facility] Yvnibhmgit165[address] [place], [place] [address]Dr. Shahbaz Rogel CBC AUTO DIFFon 01-20-2022 BASO # 0.0 103/ul Normal 0.0-0.1 [facility] Comment on above: Performed By: #### C BC ####[facility] Qkrfsnmpaw834[address] [place], [place] [address]Dr. Shahbaz Juan F Basophils/100 WBC (Bld) 0.0 % Critically low 0.2-2.0 [facility] Comment on above: Performed By: #### C BC ####[facility] Rustsofjgy654[address] [place], [place] [address]Dr. Shahbaz Juan F EO # 0.0 103/ul Normal 0.0-0.7 [facility] Comment on above: Performed By: #### C BC ####[facility] Swfdgnfsgf176[address] [place], [place] [address]Dr. Shahbaz Juan F Eosinophils/100 WBC (Bld) 0.0 % Critically low 0.9-7.0 [facility] Comment on above: Performed By: #### C BC ####[facility] Irrclpovpc6298 [place] [address]Dr. Shahbaz Rogel Erythrocyte distribution width (RBC) [Ratio] 13.7 % Normal 11.0-15.0 [facility] Comment on above: Performed By: #### C BC ####[facility] Etmdfofmcj3044[address] [place], [place] [address]Dr. Shahbaz Rogel Hematocrit (Bld) [Volume fraction] 41.2 % Normal 36.0-48.0 [facility] Comment on above: Performed By: #### C BC ####[facility] Vfekcnndzd813[address] [place], [place] [address]Dr. Shahbaz Rogel Hemoglobin (Bld) [Mass/Vol] 12.8 g/dL Normal 12.0-16.0 [facility] Comment on above: Performed By: #### C BC ####[facility] Mfcfsyanzb3575[address] [place], [place] [address]Dr. Shahbaz Rogel IG # 0.10 10e3/ul Critically high 0.00-0.03 [facility] Comment on above: Performed By: #### C BC ####[facility] Lozvjcoowy[address] [place], [place] [address]Dr. Shahbaz Rogel IG % 0.5 % Normal 0.0-0.5 [facility] Comment on above: Performed By: #### C BC ####[facility] Astoqffeks722[address] [place], [place] [address]Dr. Shahbaz Rogel LYMPH # 0.7 103/ul Critically low 1.2-3.8 [facility] Comment on above: Performed By: #### C BC ####[facility] Ongxjbmswm424[address] [place], [place] [address]Dr. Shahbaz Rogel Lymphocytes/100 WBC (Bld) 6.2 % Critically low 20.5-60.0 [facility] Comment on above: Result Comment: dif. not rqd. same as 01/18/22 Performed By: #### C BC ####[facility] Kxefgemele[address] [place], [place] [address]DrChen Shahbaz Rogel MANUAL DIFF REQ NO Normal [facility] Comment on above: Performed By: #### C BC ####[facility] Xxxggpltqr7143 [place] [address]Dr. Shahbaz Rogel MCH (RBC) [Entitic mass] 27.2 pg Normal 26.7-34.0 [facility] Comment on above: Performed By: #### C BC ####[facility] Dugfsddvyv5932 [place] [address]Dr. Shahbaz Rogel MCHC (RBC) [Mass/Vol] 31.1 g/dL Normal 29.9-35.2 [facility] Comment on above: Performed By: #### C BC ####[facility] Dwpfohxibo640[address] [place], [place] [address]Dr. Shahbaz Rogel MCV (RBC) [Entitic vol] 87.5 fL Normal 81.0-99.0 [facility] Comment on above: Performed By: #### C BC ####[facility] Cwbengmavt95[address] [place], [place] [address]DrChen Rogel MONO # 0.2 103/ul Critically low 0.3-0.8 [facility] Comment on above: Performed By: #### C BC ####[facility] Brvxirfkdv7699[address] [place], [place] [address]DrChen Rogel Monocytes/100 WBC (Bld) 1.7 % Normal 1.7-12.0 [facility] Comment on above: Performed By: #### C BC ####[facility] Erkrmbcwvh7[address] [place], [place] [address]DrChen Rogel NEUT # 9.8 103/ul Critically high 1.4-6.5 [facility] Comment on above: Performed By: #### C BC ####[facility] Yjuvolgmbl[address] [place], [place] [address]DrChen Rogel Neutrophils/100 WBC (Bld) 91.6 % Critically high 43.0-75.0 [facility] Comment on above: Performed By: #### C BC ####[facility] Szzgiqrbln[address] [place], [place] [address]DrChen Rogel Platelet mean volume (Bld) [Entitic vol] 10.0 fL Normal 9.5-13.5 [facility] Comment on above: Performed By: #### C BC ####[facility] Xjufjpctgz1194 [place] [address]Dr. Shahbaz Rogel PLT 198 103/ul Normal 150-450 [facility] Comment on above: Performed By: #### C BC ####[facility] Htmtuvzpsx6748 [place] [address]Dr. Shahbaz Rogel RBC 4.71 106/ul Normal 4.20-5.40 [facility] Comment on above: Performed By: #### C BC ####[facility] Ymvgwolwrq7253 [place] [address]Dr. Shahbaz Rogel WBC 10.7 103/ul Normal 4.0-11.0 [facility] Comment on above: Performed By: #### C BC ####[facility] Xcsfuamjol1812 [place] [address]Dr. Shahbaz Juan F POINT OF CARE GLUCOSEon 01-01 Glucose [Mass/Vol] 157 mg/dL Critically high 74-106 [facility] Comment on above: Performed By: #### P OCGLUC ####[facility] Rxnrfbkoif244[address] [place], [place] [address]Dr. Shahbaz Rogel Glucose [Mass/Vol] 225 mg/dL Critically high -106 [facility] Comment on above: Performed By: #### P OCGLUC ####[facility] Xndfyankob[address] [place] [address]Dr. Shahbaz Rogel Glucose [Mass/Vol] 185 mg/dL Critically high 74-106 [facility] Comment on above: Performed By: #### P OCGLUC ####[facility] Jzwwmgpfqe254[address] [place], [place] [address]Dr. Shahbaz Rogel Glucose [Mass/Vol] 134 mg/dL Critically high -106 [facility] Comment on above: Performed By: #### P OCGLUC ####[facility] Qjmevlgbuz[address] [place], [place] [address]Dr. Shahbaz Rogel PROF 14(COMP METB)on 022 Albumin [Mass/Vol] 3.0 g/dL Critically low 3.4-5.[address] [facility] Comment on above: Performed By: #### C MP ####[facility] Mkqgufxtkl[address] [place] [address]Dr. Shahbaz Rogel Albumin/Globulin [Mass ratio] 0.9 {ratio} Normal [facility] Comment on above: Performed By: #### C MP ####[facility] Dsgijocwxv99[address] [place], [place] [address]Dr. Shahbaz Rogel ALP [Catalytic activity/Vol] 81 U/L Normal 46-116 [facility] Comment on above: Performed By: #### C MP ####[facility] Nnfeqittgj[address] [place], [place] [address]Dr. Shahbaz Rogel ALT [Catalytic activity/Vol] 14 U/L Normal 14-59 [facility] Comment on above: Performed By: #### C MP ####[facility] Nrhnfywxzs45[address] [place], [place] [address]Dr. Shahbaz Rogel Anion gap [Moles/Vol] 13.1 mmol/L Normal [facility] Comment on above: Performed By: #### C MP ####[facility] Xvtfknknyw0[address] [place], [place] [address]Dr. Shahbaz Rogel AST [Catalytic activity/Vol] 20 U/L Normal 15-37 [facility] Comment on above: Performed By: #### C MP ####[facility] Axekxutpnj[address] [place], [place] [address]Dr. Shahbaz Rogel Bilirubin [Mass/Vol] 0.3 mg/dL Normal 0.2-1.3 [facility] Comment on above: Performed By: #### C MP ####[facility] Bfsprajhna43[address] [place], [place] [address]Dr. Shahbaz Rogel Calcium [Mass/Vol] 8.5 mg/dL Normal 8.5-10.1 [facility] Comment on above: Performed By: #### C MP ####[facility] Wyifeckbkf[address] [place], [place] [address]Dr. Shahbaz Rogel Chloride [Moles/Vol] 107 mmol/L Normal 98-107 [facility] Comment on above: Performed By: #### C MP ####[facility] Ursnmevobx[address] [place] [address]Dr. Shahbaz Rogel CO2 [Moles/Vol] 24.0 mmol/L Normal 22.0-30.0 [facility] Comment on above: Performed By: #### C MP ####[facility] Avrsefqakh20[address] [place] [address]Dr. Shahbaz Rogel Creatinine [Mass/Vol] 1.00 mg/dL Normal 0.52-1.04 [facility] Comment on above: Performed By: #### C MP ####[facility] Ojxgfzngrs[address] [place], [place] [address]Dr. Shahbaz Rogel EGFR-AF ALBANIAN >60 Normal >=60 [facility] Comment on above: Performed By: #### C MP ####[facility] Ckejghvdcw32[address] [place] [address]Dr. Shahbaz Rogel EGFR-NON AF ALBANIAN 57 mL/min/1.73m2 Critically low >=60 [facility] Comment on above: Performed By: #### C MP ####[facility] Lxxzjwfyxo232[address] [place] [address]Dr. Shahbaz Rogel Globulin (S) [Mass/Vol] 3.4 g/dL Normal [facility] Comment on above: Performed By: #### C MP ####[facility] Novzlrytda7[address] [place] [address]Dr. Shahbaz Rogel Glucose [Mass/Vol] 153 mg/dL Critically high 74-106 [facility] Comment on above: Performed By: #### C MP ####[facility] Iycfvmluyu12[address] [place] [address]Dr. Shahbaz Rogel Potassium [Moles/Vol] 4.1 mmol/L Normal 3.4-5.0 [facility] Comment on above: Performed By: #### C MP ####[facility] Vwjqyxlihn93[address] [place] [address]Dr. Shahbaz Rogel Protein [Mass/Vol] 6.4 g/dL Normal 6.1-8.2 [facility] Comment on above: Performed By: #### C MP ####[facility] Scatdzueia8799[address] [place], [place] [address]Dr. Shahbaz Rogel Sodium [Moles/Vol] 140 mmol/L Normal 137-145 [facility] Comment on above: Performed By: #### C MP ####[facility] Nshzcqgvxy50[address] [place], [place] [address]Dr. Shahbaz Rogel Urea nitrogen [Mass/Vol] 26.0 mg/dL Critically high 7.0-18.0 [facility] Comment on above: Performed By: #### C MP ####[facility] Msowdxidoe5515[address] [place], [place] [address]Dr. Shahbaz Rogel Urea nitrogen/Creatinine [Mass ratio] 26.5 mg/mg Normal [facility] Comment on above: Performed By: #### C MP ####[facility] Yamuarnart[address] [place], [place] [address]DrChen Rogel BNPon 01-19-2022 Natriuretic peptide B (Bld) [Mass/Vol] 117.0 pg/mL Normal <=900.0 [facility] Comment on above: Performed By: #### B TREE PLANTER, CMP ####[facility] Tyyawzintc[address] [place], [place] [address]DrChen Rogel CBC AUTO DIFFon 01-19-2022 BASO # 0.0 103/ul Normal 0.0-0.1 [facility] Comment on above: Performed By: #### C BC ####[facility] Pngnykcxvz70[address] [place], [place] [address]DrChen Rogel Basophils/100 WBC (Bld) 0.0 % Critically low 0.2-2.0 [facility] Comment on above: Performed By: #### C BC ####[facility] Lcxsanmakn3660[address] [place], [place] [address]DrChen Rogel EO # 0.0 103/ul Normal 0.0-0.7 [facility] Comment on above: Performed By: #### C BC ####[facility] Wsyummvqrc980[address] [place], [place] [address]Dr. Shahbaz Rogel Eosinophils/100 WBC (Bld) 0.0 % Critically low 0.9-7.0 [facility] Comment on above: Performed By: #### C BC ####[facility] Cbpjghtuim2[address] [place] [address]Dr. Shahbaz Rogel Erythrocyte distribution width (RBC) [Ratio] 13.4 % Normal 11.0-15.0 [facility] Comment on above: Performed By: #### C BC ####[facility] Xahiyovlja40[address] [place], [place] [address]Dr. Shahbaz Rogel Hematocrit (Bld) [Volume fraction] 46.3 % Normal 36.0-48.0 [facility] Comment on above: Performed By: #### C BC ####[facility] Lymwsuwhbu[address] [place], [place] [address]Dr. Shahbaz Rogel Hemoglobin (Bld) [Mass/Vol] 14.3 g/dL Normal 12.0-16.0 [facility] Comment on above: Performed By: #### C BC ####[facility] Zhgrumebut029[address] [place], [place] [address]Dr. Shahbaz Rogel IG # 0.00 10e3/ul Normal 0.00-0.03 [facility] Comment on above: Performed By: #### C BC ####[facility] Awuvrltpih1539[address] [place], [place] [address]Dr. Shahbaz Rogel IG % 0.0 % Normal 0.0-0.5 [facility] Comment on above: Performed By: #### C BC ####[facility] Pepukdwkqy[address] [place], [place] [address]Dr. Shahbaz Rogel LYMPH # 0.6 103/ul Critically low 1.2-3.8 [facility] Comment on above: Performed By: #### C BC ####[facility] Nidktpajsz64[address] [place], [place] [address]Dr. Shahbaz Rogel Lymphocytes/100 WBC (Bld) 14.2 % Critically low 20.5-60.0 [facility] Comment on above: Performed By: #### C BC ####[facility] Thdsrbxuhe[address] [place] [address]Dr. Shahbaz Rogel MANUAL DIFF REQ NO Normal [facility] Comment on above: Performed By: #### C BC ####[facility] Gellfcuois[address] [place] [address]Dr. Shahbaz Rogel MCH (RBC) [Entitic mass] 27.7 pg Normal 26.7-34.0 [facility] Comment on above: Performed By: #### C BC ####[facility] Ktcilqgifa79[address] [place] [address]Dr. Shahbaz Juan F MCHC (RBC) [Mass/Vol] 30.9 g/dL Normal 29.9-35.2 [facility] Comment on above: Performed By: #### C BC ####[facility] Dvthbbiepm6324 [place] [address]Dr. Shahbaz Juan F MCV (RBC) [Entitic vol] 89.6 fL Normal 81.0-99.0 [facility] Comment on above: Performed By: #### C BC ####[facility] Thulsvlqwn7[address] [place] [address]Dr. Shahbaz Juan F MONO # 0.0 103/ul Critically low 0.3-0.8 [facility] Comment on above: Performed By: #### C BC ####[facility] Vnereazpyz34[address] [place] [address]Dr. Lilajarrod Rogel Monocytes/100 WBC (Bld) 1.0 % Critically low 1.7-12.0 [facility] Comment on above: Performed By: #### C BC ####[facility] Iqocgcpoqf48[address] [place] [address]Dr. Shahbaz Juan F NEUT # 3.5 103/ul Normal 1.4-6.5 [facility] Comment on above: Performed By: #### C BC ####[facility] Cuktspohau[address] [place], [place] [address]Dr. Lilajarrod Rogel Neutrophils/100 WBC (Bld) 84.8 % Critically high 43.0-75.0 [facility] Comment on above: Performed By: #### C BC ####[facility] Fxcsjgigdc3[address] [place] [address]Dr. Shahbaz Rogel Platelet mean volume (Bld) [Entitic vol] 9.8 fL Normal 9.5-13.5 [facility] Comment on above: Performed By: #### C BC ####[facility] Abcfnxpsdo37[address] [place] [address]Dr. Shahbaz Rogel PLT 185 103/ul Normal 150-450 [facility] Comment on above: Performed By: #### C BC ####[facility] Vwegpwrivg[address] [place], [place] [address]Dr. Shahbaz Rogel RBC 5.17 106/ul Normal 4.20-5.40 [facility] Comment on above: Performed By: #### C BC ####[facility] Ptzlyiripm[address] [place], [place] [address]Dr. Shahbaz Rogel WBC 4.2 103/ul Normal 4.0-11.0 [facility] Comment on above: Performed By: #### C BC ####[facility] Vofshznfsj[address] [place], [place] [address]Dr. Shahbaz Rogel LACTATE/LACTIC ACIDon 2021 Lactate [Moles/Vol] 1.7 mmol/L Normal 0.7-2.0 [facility] Comment on above: Performed By: #### L ACT ####[facility] Mvhezmqsft9[address] [place], [place] [address]Dr. Shahbaz Rogel POINT OF CARE GLUCOSEon 01-01 Glucose [Mass/Vol] 173 mg/dL Critically high 74-106 [facility] Comment on above: Performed By: #### P OCGLUC ####[facility] Aujjapaviy0[address] [place] [address]Dr. Shahbaz Rogel Glucose [Mass/Vol] 181 mg/dL Critically high 74-106 [facility] Comment on above: Performed By: #### P OCGLUC ####[facility] Pjddjuawbu[address] [place], [place] [address]Dr. Shahbaz Rogel Glucose [Mass/Vol] 154 mg/dL Critically high 74-106 [facility] Comment on above: Performed By: #### P OCGLUC ####[facility] Coutfavsmp8[address] [place] [address]Dr. Shahbaz Rogel PROF 14(COMP METB)on 022 Albumin [Mass/Vol] 3.5 g/dL Normal 3.4-5.0 [facility] Comment on above: Performed By: #### B TREE PLANTER, CMP ####[facility] Wccihoyghr25[address] [place] [address]Dr. Shahbaz Rogel Albumin/Globulin [Mass ratio] 0.9 {ratio} Normal [facility] Comment on above: Performed By: #### B TREE PLANTER, CMP ####[facility] Zfkxnumvyi7613 [place] [address]Dr. Shahbaz Rogel ALP [Catalytic activity/Vol] 107 U/L Normal 46-116 [facility] Comment on above: Performed By: #### B TREE PLANTER, CMP ####[facility] Adyhdmtksj[address] [place], [place] [address]Dr. Shahbaz Rogel ALT [Catalytic activity/Vol] 18 U/L Normal 14-59 [facility] Comment on above: Performed By: #### B TREE PLANTER, CMP ####[facility] Fkgmyaeidb4486 [place] [address]Dr. Shahabz Rogel Anion gap [Moles/Vol] 14.1 mmol/L Normal [facility] Comment on above: Performed By: #### B TREE PLANTER, CMP ####[facility] Lqpghilgfc[address] [place], [place] [address]Dr. Shahbaz Rogel AST [Catalytic activity/Vol] 19 U/L Normal 15-37 [facility] Comment on above: Performed By: #### B TREE PLANTER, CMP ####[facility] Spukocljgm6713 [place] [address]Dr. Shahbaz Rogel Bilirubin [Mass/Vol] 0.5 mg/dL Normal 0.2-1.3 [facility] Comment on above: Performed By: #### B TREE PLANTER, CMP ####[facility] Rrbeqpevvr0638 [place] [address]Dr. Shahbaz Rogel Calcium [Mass/Vol] 8.5 mg/dL Normal 8.5-10.1 [facility] Comment on above: Performed By: #### B TREE PLANTER, CMP ####[facility] Lvamtgiuve6002 [place] [address]Dr. Shahbaz Rogel Chloride [Moles/Vol] 103 mmol/L Normal 98-107 [facility] Comment on above: Performed By: #### B TREE PLANTER, CMP ####[facility] Eyfplbxmqf1888[address] [place], [place] [address]Dr. Shahbaz Rogel CO2 [Moles/Vol] 25.4 mmol/L Normal 22.0-30.0 [facility] Comment on above: Performed By: #### B TREE PLANTER, CMP ####[facility] Ftulspcxtp[address] [place], [place] [address]Dr. Shahbaz Rogel Creatinine [Mass/Vol] 1.48 mg/dL Critically high 0.52-1.04 [facility] Comment on above: Performed By: #### B TREE PLANTER, CMP ####[facility] Idbgoutfez6[address] [place], [place] [address]Dr. Shahbaz Rogel EGFR-AF ALBANIAN 44 mL/min/1.73m2 Critically low >=60 [facility] Comment on above: Performed By: #### B TREE PLANTER, CMP ####[facility] Mvirfurzzp[address] [place], [place] [address]Dr. Shahbaz Rogel EGFR-NON AF ALBANIAN 36 mL/min/1.73m2 Critically low >=60 [facility] Comment on above: Performed By: #### B TREE PLANTER, CMP ####[facility] Tzoenjpotb7209[address] [place], [place] [address]Dr. Shahbaz Rogel Globulin (S) [Mass/Vol] 3.7 g/dL Normal [facility] Comment on above: Performed By: #### B TREE PLANTER, CMP ####[facility] Wtimiirwqn736[address] [place], [place] [address]Dr. Shahbaz Rogel Glucose [Mass/Vol] 203 mg/dL Critically high 74-106 [facility] Comment on above: Performed By: #### B TREE PLANTER, CMP ####[facility] Oavklbthjj295[address] [place], [place] [address]Dr. Shahbaz Rogel Potassium [Moles/Vol] 3.5 mmol/L Normal 3.4-5.0 [facility] Comment on above: Performed By: #### B TREE PLANTER, CMP ####[facility] Asmcjdmpjt8909[address] [place], [place] [address]Dr. Lilajarrod Juan F Protein [Mass/Vol] 7.2 g/dL Normal 6.1-8.2 [facility] Comment on above: Performed By: #### B TREE PLANTER, CMP ####[facility] Xmawgkalue[address] [place], [place] [address]Dr. Lilajarrod Juan F Sodium [Moles/Vol] 139 mmol/L Normal 137-145 [facility] Comment on above: Performed By: #### B TREE PLANTER, CMP ####[facility] Rzaxosafon75[address] [place], [place] [address]Dr. Shahbaz Rogel Urea nitrogen [Mass/Vol] 17.0 mg/dL Normal 7.0-18.0 [facility] Comment on above: Performed By: #### B TREE PLANTER, CMP ####[facility] Lyqyjodzeb[address] [place], [place] [address]Dr. Lilajarrod Juan F Urea nitrogen/Creatinine [Mass ratio] 11.5 mg/mg Normal [facility] Comment on above: Performed By: #### B TREE PLANTER, CMP ####[facility] Vnnoyudckz[address] [place], [place] [address]Dr. Lilajarrod Juan F BNPon 01-18-2022 Natriuretic peptide B (Bld) [Mass/Vol] 55.0 pg/mL Normal <=900.0 [facility] Comment on above: Performed By: #### C MP, BNP, HSTROPN ####[facility] Mnzyulrfpz88[address] [place], [place] [address]Dr. Lilajarrod Juan F CBC W MANUAL DIFFon 01-19-20 ATYPICAL LYMPH # 0.12 103/ul Normal [facility] Comment on above: Performed By: #### C CAIN ####[facility] Jntfoqocbq[address] [place], [place] [address]Dr. Shahbaz Rogel ATYPICAL LYMPH % 2 % Normal [facility] Comment on above: Performed By: #### C CAIN ####[facility] Fwlxxvqbgs[address] [place], [place] [address]Dr. Yijarrod Rogel BAND # 0.0 103/ul Normal 0.0-0.3 [facility] Comment on above: Performed By: #### C BCMAN ####[facility] Mwjninwfwo46[address] [place] [address]Dr. Yilan Rogel BAND % 0 % Normal 0-5 [facility] Comment on above: Performed By: #### C BCMAN ####[facility] Mdwrjaqrrp[address] [place], [place] [address]Dr. Yilan Rogel BASOM # 0.00 103/ul Normal 0.00-0.10 [facility] Comment on above: Performed By: #### C BCBRICE ####[facility] Izpdfjglgo[address] [place], [place] [address]Dr. Shahbaz Rogel BASOM % 0.0 % Critically low 0.2-2.0 [facility] Comment on above: Performed By: #### C BCBRICE ####[facility] Serpuypeyf7260[address] [place], [place] [address]Dr. Yilan Rogel BLAST # Normal [facility] Comment on above: Performed By: #### C CAIN ####[facility] Fjybrttluo[address] [place], [place] [address]Dr. Yilan Rogel BLAST % Normal [facility] Comment on above: Performed By: #### C CAIN ####[facility] Fjggfgodfa[address] [place], [place] [address]Dr. Shahbaz Rogel CORRECTED WBC Normal 4.0-11.0 [facility] Comment on above: Performed By: #### C BCBRICE ####[facility] Smdfbvgzyf96[address] [place], [place] [address]Dr. Yijarrod Rogel EOS # 0.25 103/ul Normal 0.00-0.70 [facility] Comment on above: Performed By: #### C BCBRICE ####[facility] Bntgplmetq8[address] [place], [place] [address]Dr. Yijarrod Rogel EOS% 4.0 % Normal 0.9-7.0 [facility] Comment on above: Performed By: #### C BCBRICE ####[facility] Zzasbwsfxt[address] [place] [id number]. Shahbaz Rogel HCT 46.8 % Normal 36.0-48.0 [facility] Comment on above: Performed By: #### C CAIN ####[facility] Lwcaveybyc0273 [place] [id number]. Shahbaz Rogel HGB 14.9 g/dl Normal 12.0-16.0 [facility] Comment on above: Performed By: #### C CAIN ####[facility] Qyqgvrqpiu76[address] [place] [phone]. Shahbaz Rogel LYMPHM # 0.68 103/ul Critically low 1.20-3.80 [facility] Comment on above: Performed By: #### C CAIN ####[facility] Rrtubcvnrm55[address] [place] [phone]. Shahbaz Rogel LYMPHM% 11.0 % Critically low 20.5-60.0 [facility] Comment on above: Performed By: #### C CAIN ####[facility] Cprxqfuups7657 [place] [phone]. Shahbaz Rogel MCH 27.6 pg Normal 26.7-34.0 [facility] Comment on above: Performed By: #### C CAIN ####[facility] Fmqxkrxrsp5344 [place] [phone]. Shahbaz Rogel MCHC 31.8 g/dl Normal 29.9-35.2 [facility] Comment on above: Performed By: #### C CAIN ####[facility] Avhjgcwyhw[address] [place] [phone]. Shahbaz Rogel MCV 86.8 fL Normal 81.0-99.0 [facility] Comment on above: Performed By: #### C CAIN ####[facility] Vhyawpktwz[address] [place], [place] [address]Dr. Shahbaz Rogel METAMYELOCYTE # Normal [facility] Comment on above: Performed By: #### C CAIN ####[facility] Ebympnduor400[address] [place] [phone]. Shahbaz Rogel METAMYELOCYTE % Normal [facility] Comment on above: Performed By: #### C CAIN ####[facility] Ggfxtikwur[address] [place], [place] [address]Lb. Shahbaz Rogel MONOM# 0.19 103/ul Critically low 0.30-0.80 [facility] Comment on above: Performed By: #### C CAIN ####[facility] Kzqjwyrtux9[address] [place] [phone]. Shahbaz Rogel MONOM% 3.0 % Normal 1.7-12.0 [facility] Comment on above: Performed By: #### C CAIN ####[facility] Ypuwqcgtmb9714 [place] [phone]. Shahbaz Rogel MPV 9.6 fL Normal 9.5-13.5 [facility] Comment on above: Performed By: #### Cheri BARLOW ####[facility] Dtmmiuqjim1804 [place] [phone]. Shahbaz Rogel MYELOCYTE # Normal [facility] Comment on above: Performed By: #### Cheri BARLOW ####[facility] Arcierejtk2287 [place] [phone]. Shahbaz Rogel MYELOCYTE % Normal [facility] Comment on above: Performed By: #### Cheri BARLOW ####[facility] Nfixjprbio3573 [place] [phone]. Shahbaz Rogel NRBC Normal [facility] Comment on above: Performed By: #### Cheri BARLOW ####[facility] Bymfglmmjw49[address] [place] [phone]. Shahbaz Rogel PLT 203 103/ul Normal 150-450 [facility] Comment on above: Performed By: #### Cheri BARLOW ####[facility] Hrbrdvvlde1805 [place] [phone]. Shahbaz Rogel RBC 5.39 106/ul Normal 4.20-5.40 [facility] Comment on above: Performed By: #### Cheri BARLOW ####[facility] Vpijdpdsnq8220 [place] [phone]. Shahbaz Rogel RDW 13.7 % Normal 11.0-15.0 [facility] Comment on above: Performed By: #### C BCMAN ####[facility] Ynlapeqzuv8[address] [place], [place] [address]Ih. Shahbaz Rogel SEG # 4.96 103/ul Normal 1.40-6.50 [facility] Comment on above: Performed By: #### C BCMAN ####[facility] Obbysnglev3694 [place], [place] [address]Mq. Shahbaz Rogel SEG % 80.0 % Critically high 43.0-75.0 [facility] Comment on above: Performed By: #### C BCMAN ####[facility] Kxanueobdk8[address] [place], [place] [address]Ax. Shahbaz Rogel WBC 6.2 103/ul Normal 4.0-11.0 [facility] Comment on above: Performed By: #### C BCMAN ####[facility] Jfcanoqncp7[address] [place], [place] [address]Ak. Shahbaz Rogel CULTURE BLOODon 01-18-2022 Microscopic examination of blood, culture Culture Observations: No growth at 5 days. Normal [facility] Comment on above: Performed By: #### B LDCX2 ####[facility] [address] [place], [place] [address]Pw. Shahbaz Rogel Microscopic examination of blood, culture Culture Observations: No growth at 5 days Normal [facility] Comment on above: Performed By: #### B LDCX1 ####[facility] [address] [place] [id number]. Shahbaz Rogel Covid-19 PCR (CVDTBH)on 12-31 SARS-CoV-2 (COVID-19) RNA PAVAN+probe Ql (Unsp spec) Not detected Normal NOT DETECTED [facility] Comment on above: Result Comment: This test is not yet approved or cleared by the [place] FDA. When there are no FDA-approved or cleared tests available, and other criteria are met, FDA can make tests available under an emergency access mechanism called an Emergency Use Authorization (EUA). The EUA for this test is supported by the [place] of Health and Human Service's (HHS's) declaration [...] with SARS-CoV-2. Performed By: #### C VDTBH ####[facility] [address] [place] [address]. Shahbaz Rogel D-DIMERon 01-18-2022 D-DIMER 0.29 mg/L FEU Normal 0.19-0.50 [facility] Comment on above: Performed By: #### D DIM ####[facility] [address] [place] [address] Shahbaz [facility] D-DIMER COMMENTS SEE BELOW Normal [facility] Comment on above: Result Comment: Incr eases [...] generalized hospitalization. Performed By: #### D DIM ####[facility] [address] [place] [address]. Shahbaz Rogel INFLUENZA A AND B AGon 01-18 INFLUANEGH SEE BELOW Normal [facility] Comment on above: Result Comment: Nega tive for Flu A protein angiten. Infection due to Flu A cannot be ruled out. Flu A angiten in the sample may be below the detection limit of the test. Performed By: #### I NFLUAB ####[facility] [address] [place], [place] [address]Dr. Shahbaz Rogel INFLUBNEGH SEE BELOW Normal [facility] Comment on above: Result Comment: Nega tive for Flu B protein antigen. Infection due to Flu B cannot be ruled out. Flu B antigen in the sample may be below the detection limit of the test. Performed By: #### I NFLUAB ####[facility] [address] [place], [place] [address]Dr. Shahbaz Rogel INFLUENZA A AG Negative Normal NEGATIVE SEE COMMENT [facility] Comment on above: Performed By: #### I NFLUAB ####[facility] [address] [place], [place] [address]Dr. Shahbaz Rogel INFLUENZA B AG Negative Normal NEGATIVE SEE COMMENT [facility] Comment on above: Performed By: #### I NFLUAB ####[facility] [address] [place], [place] [address]Dr. Shahbaz Rogel INTERNAL CONTROLS Within Normal Limits Normal Wi thin Normal Limits [facility] Comment on above: Performed By: #### I NFLUAB ####[facility] [address] [place], [place] [address]Dr. Shahbaz Rogel LACTATE/LACTIC ACIDon 2021 Lactate [Moles/Vol] 1.0 mmol/L Normal 0.7-2.0 [facility] Comment on above: Performed By: #### L ACT ####[facility] [address] [place], [place] [address]Dr. Shahbaz Rogel PROF 14(COMP METB)on 022 Albumin [Mass/Vol] 3.8 g/dL Normal 3.4-5.0 [facility] Comment on above: Performed By: #### C MP, BNP, HSTROPN ####[facility] [address] [place], [place] [address]Dr. Shahbaz Rogel Albumin/Globulin [Mass ratio] 1.0 {ratio} Normal [facility] Comment on above: Performed By: #### C MP, BNP, HSTROPN ####[facility] [address] [place], [place] [address]Dr. Shahbaz Rogel ALP [Catalytic activity/Vol] 116 U/L Normal 46-116 [facility] Comment on above: Performed By: #### C MP, BNP, HSTROPN ####[facility] [address] [place] [address]Dr. Shahbaz Rogel ALT [Catalytic activity/Vol] 16 U/L Normal 14-59 [facility] Comment on above: Performed By: #### C MP, BNP, HSTROPN ####[facility] [address] [place] [address]Dr. Shahbaz Rogel Anion gap [Moles/Vol] 9.4 mmol/L Normal [facility] Comment on above: Performed By: #### C MP, BNP, HSTROPN ####[facility] [address] [place] [address]Dr. Shahbaz Rogel AST [Catalytic activity/Vol] 19 U/L Normal 15-37 [facility] Comment on above: Performed By: #### C MP, BNP, HSTROPN ####[facility] [address] [place], [place] [address]Dr. Shahbaz Rogel Bilirubin [Mass/Vol] 0.5 mg/dL Normal 0.2-1.3 [facility] Comment on above: Performed By: #### C MP, BNP, HSTROPN ####[facility] I[address] [place], [place] [address]Dr. Shahbaz Rogel Calcium [Mass/Vol] 8.9 mg/dL Normal 8.5-10.1 [facility] Comment on above: Performed By: #### C MP, BNP, HSTROPN ####[facility] [address] [place], [place] [address]Dr. Shahbaz Rogel Chloride [Moles/Vol] 104 mmol/L Normal 98-107 [facility] Comment on above: Performed By: #### C MP, BNP, HSTROPN ####[facility] [address] [place], [place] [address]Dr. Shahbaz Rogel CO2 [Moles/Vol] 27.2 mmol/L Normal 22.0-30.0 [facility] Comment on above: Performed By: #### C MP, BNP, HSTROPN ####[facility] [address] [place], [place] [address]Dr. Shahbaz Rogel Creatinine [Mass/Vol] 0.99 mg/dL Normal 0.52-1.04 [facility] Comment on above: Performed By: #### C MP, BNP, HSTROPN ####[facility] [address] [place] [address]Dr. Shahbaz Rogel EGFR-AF ALBANIAN >60 Normal >=60 [facility] Comment on above: Performed By: #### C MP, BNP, HSTROPN ####[facility] [address] [place] [address]Dr. Shahbaz Rogel EGFR-NON AF ALBANIAN 58 mL/min/1.73m2 Critically low >=60 [facility] Comment on above: Performed By: #### C MP, BNP, HSTROPN ####[facility] [address] [place] [address]Dr. Shahbaz Rogel Globulin (S) [Mass/Vol] 3.8 g/dL Normal [facility] Comment on above: Performed By: #### C MP, BNP, HSTROPN ####[facility] [address] [place] [address]Dr. Shahbaz Rogel Glucose [Mass/Vol] 104 mg/dL Normal 74-106 [facility] Comment on above: Performed By: #### C MP, BNP, HSTROPN ####[facility] [address] [place] [address]Dr. Shahbaz Rogel Potassium [Moles/Vol] 3.6 mmol/L Normal 3.4-5.0 [facility] Comment on above: Performed By: #### C MP, BNP, HSTROPN ####[facility] [address] [place] [address]Dr. Shahbaz Rogel Protein [Mass/Vol] 7.6 g/dL Normal 6.1-8.2 [facility] Comment on above: Performed By: #### C MP, BNP, HSTROPN ####[facility] [address] [place] [address]Dr. Shahbaz Rogel Sodium [Moles/Vol] 137 mmol/L Normal 137-145 [facility] Comment on above: Performed By: #### C MP, BNP, HSTROPN ####[facility] [address] [place] [id number]. Shahbaz Rogel Urea nitrogen [Mass/Vol] 9.0 mg/dL Normal 7.0-18.0 [facility] Comment on above: Performed By: #### C MP, BNP, HSTROPN ####[facility] [address] [place] [id number]. Shahbaz Rogel Urea nitrogen/Creatinine [Mass ratio] 9.1 mg/mg Normal [facility] Comment on above: Performed By: #### C MP, BNP, HSTROPN ####[facility] [address] [place] [address]Dr. Shahbaz Rogel TROPONIN, HIGH SENSITIVITYon 01-18-2022 HSTROP 6.4 pg/mL Normal 4.0-35.5 [facility] Comment on above: Result Comment: CUT- OFF POINTS HAVE BEEN ESTABLISHED BASED ON THE FOURTH UNIVERSAL DEFINITIONS OF MYOCARDIALINFARCTION. THE UPPER REFERENCE LIMIT (URL) OF TROPONIN, DEFINED THE 99TH PERCENTILE OFcTnI DISTRIBUTION IN A REFERENCE POPULATION, HAS BEEN CONFIRMED THE DECISION THRESHOLDFOR MT DIAGNOSIS. Performed By: #### C MP, BNP, HSTROPN ####[facility] [address] [place] [address]Dr. Shahbaz Rogel XR CHEST 2 Von 01-18-2022 XR CHEST 2 V Normal [facility] URINALYSIS REFLEXon 04-04-20 20 Appearance (U) CLEAR Normal CLEAR [facility] Comment on above: Order Comment: No: D o not add to previous draw Performed By: #### 1 0070, 91471, 21294, 70288, 91716, 69898 #### [facility] [address] [place] [address], [facility] Bilirubin [Mass/Vol] Negative Normal NEGATIVE [facility] Comment on above: Order Comment: No: D o not add to previous draw Performed By: #### 1 0070, 85904, 77226, 22921, 98034, 69600 #### [facility] [address] [place] [address], [place] BLOOD Negative Normal NEGATIVE [facility] Comment on above: Order Comment: No: D o not add to previous draw Performed By: #### 1 0070, 31542, 53038, 13294, 93019, 30242 #### [facility] [address] [place] [address], [place] Color (U) YELLOW Normal YELLOW [facility] Comment on above: Order Comment: No: D o not add to previous draw Performed By: #### 1 0070, 44022, 49450, 40044, 30418, 26515 #### [facility] [address] [place] [address], [place] Glucose [Mass/Vol] Negative Normal NEGATIVE [facility] Comment on above: Order Comment: No: D o not add to previous draw Performed By: #### 1 0070, 72593, 67478, 39370, 10351, 60325 #### [facility] [address] [place] [address], [place] KETONE Negative Normal NEGATIVE [facility] Comment on above: Order Comment: No: D o not add to previous draw Performed By: #### 1 0070, 04777, 73952, 08586, 39197, 76089 #### [facility] [address] [place] [address], [place] LEUK ELIU Negative Normal NEGATIVE [facility] Comment on above: Order Comment: No: D o not add to previous draw Performed By: #### 1 0070, 42205, 99134, 35847, 29772, 08376 #### [facility] [address] [place] [address], [place] MICRO NOT DONE Normal [facility] Comment on above: Order Comment: No: D o not add to previous draw Result Comment: Micr oscopics not performed on urines with negative chemical reactions unless requested in original order Performed By: #### 1 0070, 13013, 35698, 53915, 42157, 25610 #### [facility] [address] [place] [address], [facility] Nitrite Ql (U) Negative Normal NEGATIVE [facility] Comment on above: Order Comment: No: D o not add to previous draw Performed By: #### 1 0070, 68851, 76901, 22097, 92087, 03020 #### [facility] [address] [facility] [place] [place] [address], [facility] pH (Bld) 5.0 Normal 5.0-8.0 [facility] Comment on above: Order Comment: No: D o not add to previous draw Performed By: #### 1 0070, 95226, 62756, 44198, 68839, 60834 #### [facility] [address] [facility] [place] [place] [address], [facility] Protein (U) [Mass/Vol] Negative Normal NEGATIVE [facility] Comment on above: Order Comment: No: D o not add to previous draw Performed By: #### 1 0070, 29118, 90725, 22828, 62851, 64829 #### [facility] [address] SPEC GRAV 1.012 Low 1.015-1.02 0 [facility] Comment on above: Order Comment: No: D o not add to previous draw Performed By: #### 1 0070, 54087, 94157, 89436, 71359, 19301 #### [facility] [address] [facility] [place] [place] [address], [facility] BASIC METABOLIC PANELon 07-0 2-2020 Calcium [Mass/Vol] 8.4 mg/dL Low 8.6-10.3 [facility] Comment on above: Order Comment: No: D o not add to previous draw Performed By: #### 1 0070, 54514, 81433, 05098, 97427, 19306 #### [facility] [address] [facility] [place] [address], [facility] Chloride [Moles/Vol] 101 mmol/L Normal 98-107 [facility] Comment on above: Order Comment: No: D o not add to previous draw Performed By: #### 1 0070, 16652, 98325, 54625, 38179, 03500 #### [facility] [address] [place] [address], [place] CO2 [Moles/Vol] 29 mmol/L Normal 21-31 [facility] Comment on above: Order Comment: No: D o not add to previous draw Performed By: #### 1 0070, 02465, 44581, 77587, 50762, 10549 #### [facility] [address] [place] [address], [place] Creatinine [Mass/Vol] 0.79 mg/dL Normal 0.60-1.20 [facility] Comment on above: Order Comment: No: D o not add to previous draw Performed By: #### 1 0070, 87368, 36143, 15997, 19921, 69580 #### [facility] [address] [place] [address], [place] GFR/1.73 sq M predicted among blacks MDRD (S/P/Bld) [Vol rate/Area] mL/min/{1.73_m2} Normal >60 [facility] Comment on above: Order Comment: No: D o not add to previous draw Performed By: #### 1 0070, 79301, 61308, 51213, 88298, 03896 #### [facility] [address] [place] [address], [place] GFR/1.73 sq M predicted among non-blacks MDRD (S/P/Bld) [Vol rate/Area] mL/min/{1.73_m2} Normal >60 [facility] Comment on above: Order Comment: No: D o not add to previous draw Performed By: #### 1 0070, 46027, 36589, 41233, 46417, 20727 #### [facility] [address] [place] [address], [facility] Glucose [Mass/Vol] 91 mg/dL Normal 70-100 [facility] Comment on above: Order Comment: No: D o not add to previous draw Performed By: #### 1 0070, 62474, 12787, 08112, 38354, 21783 #### [facility] [address] [place] [address], [facility] Potassium [Moles/Vol] 3.9 mmol/L Normal 3.5-5.1 [facility] Comment on above: Order Comment: No: D o not add to previous draw Performed By: #### 1 0070, 38672, 16709, 20316, 77614, 91683 #### [facility] [address] [facility] [place] [address], [facility] Sodium [Moles/Vol] 133 mmol/L Low 136-145 [facility] Comment on above: Order Comment: No: D o not add to previous draw Performed By: #### 1 0070, 18442, 27838, 95341, 65639, 39096 #### [facility] [address] [facility] [place] [address], [facility] Urea nitrogen [Mass/Vol] 10 mg/dL Normal 7-25 [facility] Comment on above: Order Comment: No: D o not add to previous draw Performed By: #### 1 0070, 88750, 30505, 94189, 27980, 63167 #### [facility] [address] [place] [address], [facility] CBC W/DIFFon 04-02-2020 ABS BASOPHILS 0.0 10*3/uL Normal 0.0-0.2 [facility] Comment on above: Order Comment: No: D o not add to previous draw Performed By: #### 1 0070, 85491, 12764, 26431, 53495, 89292 #### [facility] [address] [place] [address], [facility] ABS IMM GRANS 0.0 10*3/uL Normal 0.0-0.2 [facility] Comment on above: Order Comment: No: D o not add to previous draw Performed By: #### 1 0070, 02754, 23931, 66781, 68726, 65123 #### [facility] [address] [place] [address], [facility] ABS NEUTROPHILS 4.5 10*3/uL Normal 1.6-7.6 [facility] Comment on above: Order Comment: No: D o not add to previous draw Performed By: #### 1 0070, 37712, 83127, 78569, 78697, 18151 #### [facility] [address] [place] [address], [facility] Basophils/100 WBC (Bld) 0.2 % Normal 0.0-1.0 [facility] Comment on above: Order Comment: No: D o not add to previous draw Performed By: #### 1 0070, 38317, 17611, 21271, 68992, 04144 #### [facility] [address] [place] [address], [facility] Eosinophils (Bld) [#/Vol] 0.2 10*3/uL Normal 0.0-0.5 [facility] Comment on above: Order Comment: No: D o not add to previous draw Performed By: #### 1 0070, 84457, 68194, 79274, 58461, 20667 #### [facility] [address] [facility] [place] [address], [facility] Eosinophils/100 WBC (Bld) 3.6 % Normal 0.0-6.0 [facility] Comment on above: Order Comment: No: D o not add to previous draw Performed By: #### 1 0070, 57361, 62274, 53191, 95720, 15217 #### [facility] [address] [facility] [place] [address], [facility] Erythrocyte distribution width (RBC) [Ratio] 12.7 % Normal 11.5-15.0 [facility] Comment on above: Order Comment: No: D o not add to previous draw Performed By: #### 1 0070, 58970, 22256, 54538, 01376, 23116 #### [facility] [address] [place] [address], [facility] Hematocrit (Bld) [Volume fraction] 42.9 % Normal 36.0-45.0 [facility] Comment on above: Order Comment: No: D o not add to previous draw Performed By: #### 1 0070, 47192, 04193, 16081, 23017, 20079 #### [facility] [address] [address], [facility] Hemoglobin (Bld) [Mass/Vol] 13.5 g/dL Normal 12.0-15.0 [facility] Comment on above: Order Comment: No: D o not add to previous draw Performed By: #### 1 0070, 74030, 17091, 48400, 80457, 47000 #### [facility] [address] [place] [address], [facility] IMMATURE GRANS 0.3 % Normal 0.0-1.0 [facility] Comment on above: Order Comment: No: D o not add to previous draw Performed By: #### 1 0070, 21849, 77483, 57250, 98842, 75008 #### [facility] [address] [place] [address], [facility] Lymphocytes (Bld) [#/Vol] 1.1 10*3/uL Low 1.2-4.0 [facility] Comment on above: Order Comment: No: D o not add to previous draw Performed By: #### 1 0070, 60682, 34484, 21747, 06870, 75813 #### [facility] [address] [place] [address], [facility] Lymphocytes/100 WBC (Bld) 18.0 % Low 20.0-45.0 [facility] Comment on above: Order Comment: No: D o not add to previous draw Performed By: #### 1 0070, 73237, 97303, 27490, 14266, 82131 #### [facility] [address] [place] [address], [facility] MCH (RBC) [Entitic mass] 27.4 pg Normal 27.0-33.0 [facility] Comment on above: Order Comment: No: D o not add to previous draw Performed By: #### 1 0070, 59759, 12116, 07435, 47732, 71355 #### [facility] [address] [facility] [place] [address], [facility] MCHC (RBC) [Mass/Vol] 31.5 g/dL Low 32.0-35.0 [facility] Comment on above: Order Comment: No: D o not add to previous draw Performed By: #### 1 0070, 43758, 81380, 26383, 13316, 48434 #### [facility] [address] [facility] [place] [address], [facility] MCV (RBC) [Entitic vol] 87.0 fL Normal 82.0-98.0 [facility] Comment on above: Order Comment: No: D o not add to previous draw Performed By: #### 1 0070, 30909, 47348, 13107, 95482, 53962 #### [facility] [address] [facility] [place] [place] [address], [facility] Monocytes (Bld) [#/Vol] 0.3 10*3/uL Normal 0.1-1.0 [facility] Comment on above: Order Comment: No: D o not add to previous draw Performed By: #### 1 0070, 85279, 64369, 40359, 66349, 50729 #### [facility] [address] [place] [address], [facility] MONOS 5.5 % Normal 5.0-12.0 [facility] Comment on above: Order Comment: No: D o not add to previous draw Performed By: #### 1 0070, 81499, 78098, 65813, 86697, 04955 #### [facility] [address] [place] [address], [facility] Neutrophils/100 WBC (Bld) 72.4 % High 40.0-72.0 [facility] Comment on above: Order Comment: No: D o not add to previous draw Performed By: #### 1 0070, 15370, 04994, 21753, 73946, 28713 #### [facility] [address] [facility] [place] [address], [facility] Nucleated RBC/100 WBC (Bld) [Ratio] 0 % Normal 0-0 [facility] Comment on above: Order Comment: No: D o not add to previous draw Performed By: #### 1 0070, 58466, 04564, 77646, 07556, 38490 #### [facility] [address] [place] [address], [place] PLAT CNT 264 10*3/uL Normal 150-400 [facility] Comment on above: Order Comment: No: D o not add to previous draw Performed By: #### 1 0070, 23614, 36632, 28384, 44640, 62212 #### [facility] [address] [facility] [place] [address], [facility] RBC (Bld) [#/Vol] 4.93 10*6/uL Normal 3.80-5.00 [facility] Comment on above: Order Comment: No: D o not add to previous draw Performed By: #### 1 0070, 32348, 36263, 28723, 44798, 90051 #### [facility] [address] [place] [address], [place] WBC (Bld) [#/Vol] 6.17 10*3/uL Normal 4.00-10.60 [facility] Comment on above: Order Comment: No: D o not add to previous draw Performed By: #### 1 0070, 55241, 15304, 17924, 92051, 01831 #### [facility] [address] [place] [address], [facility] MAGNESIUM BLOODon 04-02-2020 Magnesium [Mass/Vol] 2.0 mg/dL Normal 1.9-2.7 [facility] Comment on above: Order Comment: No: D o not add to previous draw Performed By: #### 1 0070, 02054, 80926, 27944, 36460, 65365 #### [facility] [address] [place] [address], [facility] PHOSPHORUS BLOODon 0 Phosphate [Mass/Vol] 3.1 mg/dL Normal 2.5-5.0 [facility] Comment on above: Order Comment: No: D o not add to previous draw Performed By: #### 1 0070, 33354, 33189, 26709, 08147, 58530 #### [facility] [address] [place] [address], [facility] POC GLUCOSE LABon 04-02-2020 Glucose [Mass/Vol] 134 mg/dL High 70-100 [facility] Comment on above: Performed By: #### 1 0070, 92002, 20792, 85125, 92652, 35724 #### [facility] [address] [place] [address], [facility] UFH HEPARIN ASSAYon 04-02-20 20 UNFRACTIONATED HEPARIN 0.91 IU/mL Critically high 0.30-0.7 0 [facility] Comment on above: Result Comment: [place] roxaban and Apixaban will interfere with the anti Xa assay used to monitor UFH and LMWH. RESULTS CHECKED AND CALLED. ACCURATELY READ BACK BY LYNN POLANCO RN @ 0643 Performed By: #### 1 0070, 82903, 02685, 23118, 33509, 44213 #### [facility] [address] [place] [address], [facility] ALBUMIN BLOODon 04-01-2020 Albumin [Mass/Vol] 3.0 g/dL Low 3.5-5.7 [facility] Comment on above: Performed By: #### 1 0070, 22760, 30918, 15428, 35138, 99854 #### [facility] [address] [place] [address], [facility] BASIC METABOLIC PANELon Calcium [Mass/Vol] 8.1 mg/dL Low 8.6-10.3 [facility] Comment on above: Order Comment: No: D o not add to previous draw Performed By: #### 1 0070, 66266, 89850, 41644, 47925, 15378 #### [facility] [address] [place] [address], [place] Chloride [Moles/Vol] 105 mmol/L Normal 98-107 [facility] Comment on above: Order Comment: No: D o not add to previous draw Performed By: #### 1 0070, 92917, 05307, 71877, 24023, 14545 #### [facility] [address] [place] [address], [facility] CO2 [Moles/Vol] 26 mmol/L Normal 21-31 [facility] Comment on above: Order Comment: No: D o not add to previous draw Performed By: #### 1 0070, 42402, 63673, 15266, 53679, 90756 #### [facility] [address] [place] [address], [place] Creatinine [Mass/Vol] 0.65 mg/dL Normal 0.60-1.20 [facility] Comment on above: Order Comment: No: D o not add to previous draw Performed By: #### 1 0070, 43579, 83260, 89315, 91204, 89581 #### [facility] [address] [place] [address], [place] GFR/1.73 sq M predicted among blacks MDRD (S/P/Bld) [Vol rate/Area] mL/min/{1.73_m2} Normal >60 [facility] Comment on above: Order Comment: No: D o not add to previous draw Performed By: #### 1 0070, 01031, 52806, 67220, 34926, 33483 #### [facility] [address] [place] [address], [place] GFR/1.73 sq M predicted among non-blacks MDRD (S/P/Bld) [Vol rate/Area] mL/min/{1.73_m2} Normal >60 [facility] Comment on above: Order Comment: No: D o not add to previous draw Performed By: #### 1 0070, 20255, 04990, 08731, 58912, 47420 #### [facility] [address] [place] [address], [place] Glucose [Mass/Vol] 87 mg/dL Normal 70-100 [facility] Comment on above: Order Comment: No: D o not add to previous draw Performed By: #### 1 0070, 68254, 46270, 40856, 07567, 69139 #### [facility] [address] [place] [address], [place] Potassium [Moles/Vol] 4.3 mmol/L Normal 3.5-5.1 [facility] Comment on above: Order Comment: No: D o not add to previous draw Performed By: #### 1 0070, 70337, 27432, 75950, 95638, 67212 #### [facility] [address] [place] [address], [place] Sodium [Moles/Vol] 136 mmol/L Normal 136-145 [facility] Comment on above: Order Comment: No: D o not add to previous draw Performed By: #### 1 0070, 78370, 43736, 18719, 60613, 41876 #### [facility] [address] [place] [address], [place] Urea nitrogen [Mass/Vol] 8 mg/dL Normal 7-25 [facility] Comment on above: Order Comment: No: D o not add to previous draw Performed By: #### 1 0070, 10057, 78121, 23789, 15034, 02536 #### [facility] [address] CBC W/DIFFon 04-01-2020 ABS BASOPHILS 0.0 10*3/uL Normal 0.0-0.2 [facility] Comment on above: Order Comment: No: D o not add to previous draw Performed By: #### 1 0070, 42899, 26673, 69918, 93473, 76474 #### [facility] [address] ABS IMM GRANS 0.0 10*3/uL Normal 0.0-0.2 [facility] Comment on above: Order Comment: No: D o not add to previous draw Performed By: #### 1 0070, 41485, 13069, 19289, 44282, 29584 #### [facility] [address] ABS NEUTROPHILS 3.4 10*3/uL Normal 1.6-7.6 [facility] Comment on above: Order Comment: No: D o not add to previous draw Performed By: #### 1 0070, 93168, 03316, 00476, 78017, 86388 #### [facility] [address] [facility] [place] [address], [facility] Basophils/100 WBC (Bld) 0.2 % Normal 0.0-1.0 [facility] Comment on above: Order Comment: No: D o not add to previous draw Performed By: #### 1 0070, 31176, 66260, 55407, 96537, 83825 #### [facility] [address] [facility] [place] [address], [facility] Eosinophils (Bld) [#/Vol] 0.1 10*3/uL Normal 0.0-0.5 [facility] Comment on above: Order Comment: No: D o not add to previous draw Performed By: #### 1 0070, 19377, 31984, 74967, 36431, 28224 #### [facility] [address] [place] [address], [facility] Eosinophils/100 WBC (Bld) 2.6 % Normal 0.0-6.0 [facility] Comment on above: Order Comment: No: D o not add to previous draw Performed By: #### 1 0070, 57856, 72714, 75392, 54758, 31916 #### [facility] [address] [address], [facility] Erythrocyte distribution width (RBC) [Ratio] 13.0 % Normal 11.5-15.0 [facility] Comment on above: Order Comment: No: D o not add to previous draw Performed By: #### 1 0070, 27834, 54784, 65304, 09122, 40790 #### [facility] [address] [place] [address], [facility] Hematocrit (Bld) [Volume fraction] 40.9 % Normal 36.0-45.0 [facility] Comment on above: Order Comment: No: D o not add to previous draw Performed By: #### 1 0070, 77436, 56850, 88381, 70524, 12379 #### [facility] [address] [place] [address], [facility] Hemoglobin (Bld) [Mass/Vol] 12.8 g/dL Normal 12.0-15.0 [facility] Comment on above: Order Comment: No: D o not add to previous draw Performed By: #### 1 0070, 80658, 07885, 32692, 44012, 64444 #### [facility] [address] [place] [address], [facility] IMMATURE GRANS 0.6 % Normal 0.0-1.0 [facility] Comment on above: Order Comment: No: D o not add to previous draw Performed By: #### 1 0070, 17601, 54936, 10657, 29265, 53615 #### [facility] [address] [address], [facility] Lymphocytes (Bld) [#/Vol] 1.2 10*3/uL Normal 1.2-4.0 [facility] Comment on above: Order Comment: No: D o not add to previous draw Performed By: #### 1 0070, 30640, 09847, 70821, 71609, 60016 #### [facility] [address] [address], [facility] Lymphocytes/100 WBC (Bld) 23.7 % Normal 20.0-45.0 [facility] Comment on above: Order Comment: No: D o not add to previous draw Performed By: #### 1 0070, 03763, 08642, 64734, 50743, 35983 #### [facility] [address] [place] [address], [facility] MCH (RBC) [Entitic mass] 27.4 pg Normal 27.0-33.0 [facility] Comment on above: Order Comment: No: D o not add to previous draw Performed By: #### 1 0070, 19959, 64903, 27440, 46133, 03518 #### [facility] [address] [place] [address], [facility] MCHC (RBC) [Mass/Vol] 31.3 g/dL Low 32.0-35.0 [facility] Comment on above: Order Comment: No: D o not add to previous draw Performed By: #### 1 0070, 52186, 33787, 48313, 43791, 19826 #### [facility] [address] [place] [address], [facility] MCV (RBC) [Entitic vol] 87.6 fL Normal 82.0-98.0 [facility] Comment on above: Order Comment: No: D o not add to previous draw Performed By: #### 1 0070, 91324, 87348, 85095, 75412, 94441 #### [facility] [address] Monocytes (Bld) [#/Vol] 0.3 10*3/uL Normal 0.1-1.0 [facility] Comment on above: Order Comment: No: D o not add to previous draw Performed By: #### 1 0070, 95998, 97636, 18669, 49275, 29070 #### [facility] [address] MONOS 5.4 % Normal 5.0-12.0 [facility] Comment on above: Order Comment: No: D o not add to previous draw Performed By: #### 1 0070, 61032, 75385, 12348, 58661, 26590 #### [facility] [address] Neutrophils/100 WBC (Bld) 67.5 % Normal 40.0-72.0 [facility] Comment on above: Order Comment: No: D o not add to previous draw Performed By: #### 1 0070, 09715, 59310, 03871, 09030, 77946 #### [facility] [address] [place] [address], [facility] Nucleated RBC/100 WBC (Bld) [Ratio] 0 % Normal 0-0 [facility] Comment on above: Order Comment: No: D o not add to previous draw Performed By: #### 1 0070, 15884, 35684, 05217, 85893, 76685 #### [facility] [address] [place] [address], [facility] PLAT CNT 237 10*3/uL Normal 150-400 [facility] Comment on above: Order Comment: No: D o not add to previous draw Performed By: #### 1 0070, 23779, 76917, 69130, 17243, 72900 #### [facility] [address] [place] [address], [facility] RBC (Bld) [#/Vol] 4.67 10*6/uL Normal 3.80-5.00 [facility] Comment on above: Order Comment: No: D o not add to previous draw Performed By: #### 1 0070, 53392, 55041, 70539, 51702, 98300 #### [facility] [address] [facility] [place] [address], [facility] WBC (Bld) [#/Vol] 4.98 10*3/uL Normal 4.00-10.60 [facility] Comment on above: Order Comment: No: D o not add to previous draw Performed By: #### 1 0070, 21414, 84672, 25567, 47138, 92031 #### [facility] [address] [place], [place] [address] [place] [address] CHEST AND LATERALon 04-01-20 CHEST AND LATERAL [facility] Department of Radiology [address] [place], [place] [address] Patient Name: EMIGDIO APODACA : 1965 Sex: F Age: Race: White Pt. Location: [id number] Patient Status: I Ordered Date: 04/01/2020 7:00:00 [...] reports Electronically signed: Shari Salcedo. Transcribed by: [email or web address], User Resident: ANNE VEGA Electronically Signed by: SHARI SALCEDO @ 04/01/2020 10:12 AM I personally read this/these film(s) with this resident Normal [facility] Comment on above: Order Comment: No: D o not add to previous draw MAGNESIUM BLOODon 04-01-2020 Magnesium [Mass/Vol] 2.1 mg/dL Normal 1.9-2.7 [facility] Comment on above: Order Comment: No: D o not add to previous draw Performed By: #### 1 0070, 62519, 65034, 87217, 58448, 37506 #### [facility] [address] [place] [address], [facility] APTTon 03-31-2020 aPTT Coag (Bld) [Time] 28.3 s Normal 25.0-35.0 [facility] Comment on above: Order Comment: [...] THIS PURPOSE. Performed By: #### 1 0070, 10531, 07305, 40506, 05782, 58506 #### [facility] [address] [place] [address], [facility] BASIC METABOLIC PANELon 06-3 Calcium [Mass/Vol] 7.8 mg/dL Low 8.6-10.3 [facility] Comment on above: Order Comment: No: D o not add to previous draw Performed By: #### 1 0070, 50308, 38230, 84690, 38325, 43509 #### [facility] [address] [place] [address], [facility] Chloride [Moles/Vol] 108 mmol/L High 98-107 [facility] Comment on above: Order Comment: No: D o not add to previous draw Performed By: #### 1 0070, 33064, 53172, 63174, 94322, 73020 #### [facility] [address] [place] [address], [facility] CO2 [Moles/Vol] 26 mmol/L Normal 21-31 [facility] Comment on above: Order Comment: No: D o not add to previous draw Performed By: #### 1 0070, 02460, 94524, 72081, 52538, 74362 #### [facility] [address] [place] [address], [facility] Creatinine [Mass/Vol] 0.76 mg/dL Normal 0.60-1.20 [facility] Comment on above: Order Comment: No: D o not add to previous draw Performed By: #### 1 0070, 03000, 45928, 70566, 49896, 22895 #### [facility] [address] [place] [address], [place] GFR/1.73 sq M predicted among blacks MDRD (S/P/Bld) [Vol rate/Area] mL/min/{1.73_m2} Normal >60 [facility] Comment on above: Order Comment: No: D o not add to previous draw Performed By: #### 1 0070, 97296, 80273, 70372, 78120, 16784 #### [facility] [address] [place] [address], [facility] GFR/1.73 sq M predicted among non-blacks MDRD (S/P/Bld) [Vol rate/Area] mL/min/{1.73_m2} Normal >60 [facility] Comment on above: Order Comment: No: D o not add to previous draw Performed By: #### 1 0070, 80194, 72672, 54943, 93052, 49788 #### [facility] [address] [place] [address], [place] Glucose [Mass/Vol] 97 mg/dL Normal 70-100 [facility] Comment on above: Order Comment: No: D o not add to previous draw Performed By: #### 1 0070, 52226, 48318, 70380, 82683, 54963 #### [facility] [address] [place] [address], [place] Potassium [Moles/Vol] 3.2 mmol/L Low 3.5-5.1 [facility] Comment on above: Order Comment: No: D o not add to previous draw Performed By: #### 1 0070, 81296, 79136, 89410, 12140, 22394 #### [facility] [address] [place] [address], [place] Sodium [Moles/Vol] 140 mmol/L Normal 136-145 [facility] Comment on above: Order Comment: No: D o not add to previous draw Performed By: #### 1 0070, 04971, 07257, 55999, 94639, 54341 #### [facility] [address] Urea nitrogen [Mass/Vol] 15 mg/dL Normal 7-25 [facility] Comment on above: Order Comment: No: D o not add to previous draw Performed By: #### 1 0070, 71725, 68518, 79668, 19142, 13455 #### [facility] [address] CBC W/DIFFon 03-31-2020 ABS BASOPHILS 0.0 10*3/uL Normal 0.0-0.2 [facility] Comment on above: Order Comment: No: D o not add to previous draw Performed By: #### 1 0070, 32623, 48105, 13444, 64154, 62128 #### [facility] [address] ABS IMM GRANS 0.0 10*3/uL Normal 0.0-0.2 [facility] Comment on above: Order Comment: No: D o not add to previous draw Performed By: #### 1 0070, 11945, 66113, 08217, 73408, 62404 #### [facility] [address] ABS NEUTROPHILS 3.2 10*3/uL Normal 1.6-7.6 [facility] Comment on above: Order Comment: No: D o not add to previous draw Performed By: #### 1 0070, 81007, 96870, 80381, 78045, 22892 #### [facility] [address] [place] [address], [facility] Basophils/100 WBC (Bld) 0.2 % Normal 0.0-1.0 [facility] Comment on above: Order Comment: No: D o not add to previous draw Performed By: #### 1 0070, 72771, 01857, 26166, 89417, 75311 #### [facility] [address] [place] [address], [facility] Eosinophils (Bld) [#/Vol] 0.0 10*3/uL Normal 0.0-0.5 [facility] Comment on above: Order Comment: No: D o not add to previous draw Performed By: #### 1 0070, 20094, 23917, 10222, 96565, 44720 #### [facility] [address] [place] [address], [facility] Eosinophils/100 WBC (Bld) 0.4 % Normal 0.0-6.0 [facility] Comment on above: Order Comment: No: D o not add to previous draw Performed By: #### 1 0070, 86952, 88039, 12344, 61836, 34339 #### [facility] [address] Erythrocyte distribution width (RBC) [Ratio] 13.0 % Normal 11.5-15.0 [facility] Comment on above: Order Comment: No: D o not add to previous draw Performed By: #### 1 0070, 16302, 07258, 21873, 95949, 24574 #### [facility] [address] [place] [address], [facility] Hematocrit (Bld) [Volume fraction] 34.4 % Low 36.0-45.0 [facility] Comment on above: Order Comment: No: D o not add to previous draw Performed By: #### 1 0070, 93736, 58220, 31511, 08670, 74742 #### [facility] [address] [place] [address], [facility] Hemoglobin (Bld) [Mass/Vol] 10.8 g/dL Low 12.0-15.0 [facility] Comment on above: Order Comment: No: D o not add to previous draw Performed By: #### 1 0070, 84973, 51006, 89953, 54626, 93573 #### [facility] [address] [facility] [place] [address], [facility] IMMATURE GRANS 0.4 % Normal 0.0-1.0 [facility] Comment on above: Order Comment: No: D o not add to previous draw Performed By: #### 1 0070, 48010, 34161, 11594, 12382, 77129 #### [facility] [address] [place] [address], [facility] Lymphocytes (Bld) [#/Vol] 1.2 10*3/uL Normal 1.2-4.0 [facility] Comment on above: Order Comment: No: D o not add to previous draw Performed By: #### 1 0070, 33751, 42311, 55073, 78532, 25931 #### [facility] [address] [place] [address], [facility] Lymphocytes/100 WBC (Bld) 25.7 % Normal 20.0-45.0 [facility] Comment on above: Order Comment: No: D o not add to previous draw Performed By: #### 1 0070, 27392, 19577, 86004, 09632, 54182 #### [facility] [address] [place] [address], [facility] MCH (RBC) [Entitic mass] 27.5 pg Normal 27.0-33.0 [facility] Comment on above: Order Comment: No: D o not add to previous draw Performed By: #### 1 0070, 09030, 24296, 99075, 35554, 58016 #### [facility] [address] [place] [address], [facility] MCHC (RBC) [Mass/Vol] 31.4 g/dL Low 32.0-35.0 [facility] Comment on above: Order Comment: No: D o not add to previous draw Performed By: #### 1 0070, 78003, 93581, 60923, 90611, 49723 #### [facility] [address] [place] [address], [facility] MCV (RBC) [Entitic vol] 87.5 fL Normal 82.0-98.0 [facility] Comment on above: Order Comment: No: D o not add to previous draw Performed By: #### 1 0070, 17890, 21270, 80198, 71629, 37429 #### [facility] [address] [place] [address], [facility] Monocytes (Bld) [#/Vol] 0.3 10*3/uL Normal 0.1-1.0 [facility] Comment on above: Order Comment: No: D o not add to previous draw Performed By: #### 1 0070, 77693, 64271, 25821, 47411, 81278 #### [facility] [address] [facility] [place] [address], [facility] MONOS 6.2 % Normal 5.0-12.0 [facility] Comment on above: Order Comment: No: D o not add to previous draw Performed By: #### 1 0070, 32228, 99714, 21047, 47695, 92368 #### [facility] [address] [facility] [place] [address], [facility] Neutrophils/100 WBC (Bld) 67.1 % Normal 40.0-72.0 [facility] Comment on above: Order Comment: No: D o not add to previous draw Performed By: #### 1 0070, 64828, 60340, 70640, 56324, 72754 #### [facility] [address] [place] [address], [facility] Nucleated RBC/100 WBC (Bld) [Ratio] 0 % Normal 0-0 [facility] Comment on above: Order Comment: No: D o not add to previous draw Performed By: #### 1 0070, 80748, 24049, 19792, 77413, 37016 #### [facility] [address] [place] [address], [facility] PLAT CNT 210 10*3/uL Normal 150-400 [facility] Comment on above: Order Comment: No: D o not add to previous draw Performed By: #### 1 0070, 56681, 99954, 99062, 88610, 20691 #### [facility] [address] [facility] [place] [address], [facility] RBC (Bld) [#/Vol] 3.93 10*6/uL Normal 3.80-5.00 [facility] Comment on above: Order Comment: No: D o not add to previous draw Performed By: #### 1 0070, 56275, 88023, 45469, 26146, 28860 #### [facility] [address] [facility] [place] [address], [facility] WBC (Bld) [#/Vol] 4.71 10*3/uL Normal 4.00-10.60 [facility] Comment on above: Order Comment: No: D o not add to previous draw Performed By: #### 1 0070, 83102, 02715, 26448, 69317, 27699 #### [facility] [address] [facility] Cardiovascular Lab Reporton 03-31-2020 Cardiovascular Lab Report [facility] Patient Name: [facility] S MR #: [id number] Department of Physician: Rebecca Weaver M.D. Medicine Service Date: 03/31/2020 Division of Birthdate: 1965 Cardiology Room #: 3AB [id number] Adult Cardiovascular Services [place] [address] Cardiovascular Laboratory Report INDICATIONS FOR PACEMAKER PLACEMENT: [...] silk suture. They were connected to a [employer] [place] dual-chamber pacing system. This was placed [...] Weaver M.D. Date Trans: 03/31/2020 03:35 P/mmo [id number] cc: Luis Armando Hines M.D. Heart Failure/ Transplant Mailstop [address] [place] [address] Normal [facility] MAGNESIUM BLOODon 03-31-2020 Magnesium [Mass/Vol] 1.8 mg/dL Low 1.9-2.7 [facility] Comment on above: Order Comment: No: D o not add to previous draw Performed By: #### 1 0070, 95143, 62872, 32826, 60251, 46614 #### [facility] [address] PHOSPHORUS BLOODon 0 Phosphate [Mass/Vol] 2.7 mg/dL Normal 2.5-5.0 [facility] Comment on above: Order Comment: No: D o not add to previous draw Performed By: #### 1 0070, 71906, 54167, 12367, 64379, 95568 #### [facility] [address] PROTHROMBIN TIMEon 0 INR Coag (PPP) [Relative time] 1.11 {INR} Normal 0.91-1.16 [facility] Comment on above: Order Comment: [...] CHEST 1995;[id number]. Performed By: #### 1 0070, 25400, 23125, 18700, 12182, 65100 #### [facility] [address] [facility]. [address] PT Coag (PPP) [Time] 14.3 s Normal 12.3-14.8 [facility] Comment on above: Order Comment: No: D o not add to previous draw Result Comment: ALL RESULTS MUST BE INTERPRETED WITH RESPECT TO BLOOD DRAWING ARTIFACT OR DILUTION ERROR OF ANTICOAGULANT AT THE TIME OF SAMPLING. Performed By: #### 1 0070, 17566, 42270, 85783, 88040, 88150 #### [facility] [address] [facility]. [address] *SARS-CoV-2 COVID-19on 03-30 [id number] Not Detected Normal Not Detected [facility] Comment on above: Order Comment: No: D o not add to previous draw Performed By: #### 1 0070, 74380, 15499, 84277, 74049, 45542 #### [facility] [address] APTTon 03-30-2020 aPTT Coag (Bld) [Time] 24.9 s Low 25.0-35.0 [facility] Comment on above: Order Comment: [...] THIS PURPOSE. Performed By: #### 5 7307, 38148 #### [facility] [address] [place] [address], [facility] BASIC METABOLIC PANELon 06- Calcium [Mass/Vol] 8.9 mg/dL Normal 8.6-10.3 [facility] Comment on above: Order Comment: No: D o not add to previous draw Performed By: #### 1 0070, 51019, 82860, 89507, 67478, 67895 #### [facility] [address] [place] [address], [facility] Chloride [Moles/Vol] 110 mmol/L High 98-107 [facility] Comment on above: Order Comment: No: D o not add to previous draw Performed By: #### 1 0070, 88117, 69481, 35655, 49350, 16581 #### [facility] [address] [place] [address], [facility] CO2 [Moles/Vol] 26 mmol/L Normal 21-31 [facility] Comment on above: Order Comment: No: D o not add to previous draw Performed By: #### 1 0070, 11747, 92417, 84070, 95896, 68978 #### [facility] [address] [place] [address], [facility] Creatinine [Mass/Vol] 0.86 mg/dL Normal 0.60-1.20 [facility] Comment on above: Order Comment: No: D o not add to previous draw Performed By: #### 1 0070, 02226, 49013, 16400, 86849, 14442 #### [facility] [address] [place] [address], [facility] GFR/1.73 sq M predicted among blacks MDRD (S/P/Bld) [Vol rate/Area] mL/min/{1.73_m2} Normal >60 [facility] Comment on above: Order Comment: No: D o not add to previous draw Performed By: #### 1 0070, 13082, 90254, 14185, 79645, 58302 #### [facility] [address] [place] [address], [place] GFR/1.73 sq M predicted among non-blacks MDRD (S/P/Bld) [Vol rate/Area] mL/min/{1.73_m2} Normal >60 [facility] Comment on above: Order Comment: No: D o not add to previous draw Performed By: #### 1 0070, 52250, 31033, 01851, 05447, 69821 #### [facility] [address] [place] [address], [place] Glucose [Mass/Vol] 119 mg/dL High 70-100 [facility] Comment on above: Order Comment: No: D o not add to previous draw Performed By: #### 1 0070, 67519, 71823, 69619, 25458, 74357 #### [facility] [address] [place] [address], [place] Potassium [Moles/Vol] 3.5 mmol/L Normal 3.5-5.1 [facility] Comment on above: Order Comment: No: D o not add to previous draw Performed By: #### 1 0070, 51761, 76478, 78048, 46479, 51015 #### [facility] [address] [place] [address], [place] Sodium [Moles/Vol] 142 mmol/L Normal 136-145 [facility] Comment on above: Order Comment: No: D o not add to previous draw Performed By: #### 1 0070, 16950, 35899, 95097, 58043, 39914 #### [facility] [address] [place] [address], [place] Urea nitrogen [Mass/Vol] 13 mg/dL Normal 7-25 [facility] Comment on above: Order Comment: No: D o not add to previous draw Performed By: #### 1 0070, 76538, 17335, 36771, 78794, 87598 #### [facility] [address] CBC W/DIFFon 03-30-2020 ABS BASOPHILS 0.0 10*3/uL Normal 0.0-0.2 [facility] Comment on above: Performed By: #### 5 0103 #### [facility] [address] ABS IMM GRANS 0.0 10*3/uL Normal 0.0-0.2 [facility] Comment on above: Performed By: #### 5 0103 #### [facility] [address] ABS NEUTROPHILS 5.7 10*3/uL Normal 1.6-7.6 [facility] Comment on above: Performed By: #### 5 0103 #### [facility] [address] Basophils/100 WBC (Bld) 0.0 % Normal 0.0-1.0 [facility] Comment on above: Performed By: #### 5 0103 #### [facility] [address] [place] [address], [facility] Eosinophils (Bld) [#/Vol] 0.0 10*3/uL Normal 0.0-0.5 [facility] Comment on above: Performed By: #### 5 0103 #### [facility] [address] [place] [address], [facility] Eosinophils/100 WBC (Bld) 0.0 % Normal 0.0-6.0 [facility] Comment on above: Performed By: #### 5 0103 #### [facility] [address] Erythrocyte distribution width (RBC) [Ratio] 12.9 % Normal 11.5-15.0 [facility] Comment on above: Performed By: #### 5 0103 #### [facility] [address] [facility] Hematocrit (Bld) [Volume fraction] 36.1 % Normal 36.0-45.0 [facility] Comment on above: Performed By: #### 0103 #### [facility] [address] Hemoglobin (Bld) [Mass/Vol] 11.5 g/dL Low 12.0-15.0 [facility] Comment on above: Performed By: #### 3 #### [facility] [address] IMMATURE GRANS 0.5 % Normal 0.0-1.0 [facility] Comment on above: Performed By: #### 3 #### [facility] [address] Lymphocytes (Bld) [#/Vol] 0.6 10*3/uL Low 1.2-4.0 [facility] Comment on above: Performed By: #### 5 3 #### [facility] [address] Lymphocytes/100 WBC (Bld) 9.3 % Low 20.0-45.0 [facility] Comment on above: Performed By: #### 5 0103 #### [facility] [address] [place] [address], [facility] MCH (RBC) [Entitic mass] 27.4 pg Normal 27.0-33.0 [facility] Comment on above: Performed By: #### 3 #### [facility] [address] [place] [address], [place] MCHC (RBC) [Mass/Vol] 31.9 g/dL Low 32.0-35.0 [facility] Comment on above: Performed By: #### 5 0103 #### [facility] [address] [place] [address], [facility] MCV (RBC) [Entitic vol] 86.0 fL Normal 82.0-98.0 [facility] Comment on above: Performed By: #### 5 0103 #### [facility] [address] [place] [address], [facility] Monocytes (Bld) [#/Vol] 0.2 10*3/uL Normal 0.1-1.0 [facility] Comment on above: Performed By: #### 5 0103 #### [facility] [address] [place] [address], [facility] MONOS 2.5 % Low 5.0-12.0 [facility] Comment on above: Performed By: #### 5 0103 #### [facility] [address] [place] [address], [facility] Neutrophils/100 WBC (Bld) 87.7 % High 40.0-72.0 [facility] Comment on above: Performed By: #### 5 3 #### [facility] [address] [facility] [place] [place] [address], [facility] Nucleated RBC/100 WBC (Bld) [Ratio] 0 % Normal 0-0 [facility] Comment on above: Performed By: #### 5 3 #### [facility] [address] [facility] [place] [address], [facility] PLAT CNT 261 10*3/uL Normal 150-400 [facility] Comment on above: Performed By: #### 5 3 #### [facility] [address] [facility] [place] [address], [facility] RBC (Bld) [#/Vol] 4.20 10*6/uL Normal 3.80-5.00 [facility] Comment on above: Performed By: #### 5 0103 #### [facility] [address] WBC (Bld) [#/Vol] 6.47 10*3/uL Normal 4.00-10.60 [facility] Comment on above: Performed By: #### 5 0103 #### [facility] [address] FREE T4on 03-30-2020 Free T4 [Mass/Vol] 1.48 ng/dL Normal 0.71-1.85 [facility] Comment on above: Performed By: #### 1 0070, 86325, 75486, 04984, 22477, 26308 #### [facility] [address] MAGNESIUM BLOODon 03-30-2020 Magnesium [Mass/Vol] 2.0 mg/dL Normal 1.9-2.7 [facility] Comment on above: Order Comment: No: D o not add to previous draw Performed By: #### 1 0070, 70400, 37913, 98441, 71780, 29608 #### [facility] [address] PHOSPHORUS BLOODon 0 Phosphate [Mass/Vol] 2.8 mg/dL Normal 2.5-5.0 [facility] Comment on above: Order Comment: No: D o not add to previous draw Performed By: #### 1 0070, 26114, 39637, 15663, 70889, 14155 #### [facility] [address] PROTHROMBIN TIMEon 0 INR Coag (PPP) [Relative time] 1.21 {INR} High 0.91-1.16 [facility] Comment on above: Order Comment: [...] CHEST 1995;[id number]. Performed By: #### 5 7307, 17435 #### [facility] [address] [facility]. [address] PT Coag (PPP) [Time] 15.4 s High 12.3-14.8 [facility] Comment on above: Order Comment: No: D o not add to previous draw Result Comment: ALL RESULTS MUST BE INTERPRETED WITH RESPECT TO BLOOD DRAWING ARTIFACT OR DILUTION ERROR OF ANTICOAGULANT AT THE TIME OF SAMPLING. Performed By: #### 5 7307, 50472 #### [facility] [address] [facility]. [address] TROPONIN-Ion 03-30-2020 Troponin I.cardiac [Mass/Vol] 0.02 ng/mL Normal 0.00-0.04 [facility] Comment on above: Order Comment: No: D o not add to previous draw Result Comment: REFE RENCE RANGES: 0.00 - 0.04 ng/ml NORMAL 0.05 - 0.50 ng/ml INDETERMINATE > 0.50 ng/ml CONSISTENT WITH AN M.I. Performed By: #### 1 0070, 37381, 19385, 12200, 32920, 68343 #### [facility] [address] Troponin I.cardiac [Mass/Vol] 0.04 ng/mL Normal 0.00-0.04 [facility] Comment on above: Order Comment: No: D o not add to previous draw Result Comment: REFE RENCE RANGES: 0.00 - 0.04 ng/ml NORMAL 0.05 - 0.50 ng/ml INDETERMINATE > 0.50 ng/ml CONSISTENT WITH AN M.I. Performed By: #### 3 5200 #### [facility] [address] [place] [address], [facility] Troponin I.cardiac [Mass/Vol] 0.04 ng/mL Normal 0.00-0.04 [facility] Comment on above: Order Comment: No: D o not add to previous draw Result Comment: REFE RENCE RANGES: 0.00 - 0.04 ng/ml NORMAL 0.05 - 0.50 ng/ml INDETERMINATE > 0.50 ng/ml CONSISTENT WITH AN M.I. Performed By: #### 1 0070, 89591, 52239, 59454, 24265, 15273 #### [facility] [address] TSH3 WITH REFLEX FT4on 03-30 TSH 3RD GENERATION 0.02 uIU/mL Low 0.34-5.60 [facility] Comment on above: Performed By: #### 1 0070, 21534, 16542, 47690, 57553, 30692 #### [facility] [address] [place], [place] [id number] [place] [address] Vital Signs Date Time Vital Sign Value Performing Clinician Facility 05-05-2025 14:00-0400 Body height 152.4 cm Naseem Carter [employer] Work Phone: [facility] 05-05-2025 14:00-0400 Body mass index (BMI) [Ratio] 19.14 kg/m2 Naseem Carter NP Work Phone: [facility] 05-05-2025 14:00-0400 Body weight 44.45 kg Naseem Carter NP Work Phone: [facility] 02-17-2025 13:40-0400 Body height 152.4 cm Naseem Carter [employer] Work Phone: [facility] 02-17-2025 13:40-0400 Body mass index (BMI) [Ratio] 20.31 kg/m2 Naseem Carter [employer] Work Phone: [facility] 02-17-2025 13:40-0400 Body weight 47.17 kg Naseem Carter [employer] Work Phone: [facility] 12-04-2024 07:30-0500 Body temperature 97.8 [degF] Tony Amaya MD Work Phone: [facility] 12-04-2024 07:30-0500 Diastolic blood pressure 77 mm[Hg] Tony Amaya MD Work Phone: [facility] 12-04-2024 07:30-0500 Heart rate 88 /min Tony Amaya MD Work Phone: [facility] 12-04-2024 07:30-0500 Respiratory rate 18 /min Tony Amaya MD Work Phone: [facility] 12-04-2024 07:30-0500 SaO2% (BldA) [Mass fraction] 97 % Tony Amaya MD Work Phone: [facility] 12-04-2024 07:30-0500 Systolic blood pressure 120 mm[Hg] Tony Amaya MD Work Phone: [facility] 12-02-2024 14:18-0500 Body height 152.4 cm Tony Amaya MD Work Phone: [facility] 12-02-2024 08:53-0500 Body weight 44.62 kg Tony Amaya MD Work Phone: [facility] 06-13-2024 12:13-0400 Body height 152.3 cm Zoila Monae MD Work Phone: [facility] 06-13-2024 12:13-0400 Body mass index (BMI) [Ratio] 19.98 kg/m2 Zoila Monae MD Work Phone: [facility] 06-13-2024 12:13-0400 Body weight 46.35 kg Zoila Monae MD Work Phone: [facility] 06-13-2024 12:13-0400 Diastolic blood pressure 77 mm[Hg] Zoila Monae MD Work Phone: [facility] 06-13-2024 12:13-0400 Heart rate 74 /min Zoila Monae MD Work Phone: [facility] 06-13-2024 12:13-0400 Systolic blood pressure 107 mm[Hg] Zoila Monae MD Work Phone: [facility] 03-06-2024 13:46-0400 Body height 153.5 cm Zoila Monae MD Work Phone: [facility] 03-06-2024 13:46-0400 Body mass index (BMI) [Ratio] 19.1 kg/m2 Zoila Monae MD Work Phone: [facility] 03-06-2024 13:46-0400 Body temperature 97.2 [degF] Zoila Monae MD Work Phone: [facility] 03-06-2024 13:46-0400 Body weight 45 kg Zoila Monae MD Work Phone: [facility] 03-06-2024 13:46-0400 Diastolic blood pressure 68 mm[Hg] Zoila Monae MD Work Phone: [facility] 03-06-2024 13:46-0400 Heart rate 106 /min Zoila Monae MD Work Phone: [facility] 03-06-2024 13:46-0400 Systolic blood pressure 101 mm[Hg] Zoila Monae MD Work Phone: [facility] 08-12-2022 15:32-0500 Body temperature 98.1 [degF] MD Tony Amaya Work Phone: [facility] 08-12-2022 15:32-0500 Diastolic blood pressure 69 mm[Hg] MD Tony Amaya Work Phone: [facility] 08-12-2022 15:32-0500 Heart rate 78 /min MD Tony Amaya Work Phone: [facility] 08-12-2022 15:32-0500 Respiratory rate 16 /min MD Tony Amaya Work Phone: [facility] 08-12-2022 15:32-0500 SaO2% (BldA) [Mass fraction] 94 % MD Tony Amaya Work Phone: [facility] 08-12-2022 15:32-0500 Systolic blood pressure 129 mm[Hg] MD Tony Amaya Work Phone: [facility] 08-12-2022 11:00-0500 Inhaled oxygen flow rate 3 L/min MD Tony Amaya Work Phone: [facility] 08-11-2022 12:39-0500 Body height 152.4 cm MD Tony Amaya Work Phone: [facility] 08-11-2022 06:00-0500 Body weight 44.9 kg MD Tony Amaya Work Phone: [facility] 08-10-2022 15:03-0500 Body mass index (BMI) [Ratio] 19.1 kg/m2 MD Tony Amaya Work Phone: [facility] 08-03-2022 14:27-0400 Body weight 0 kg MD Tony Amaya Work Phone: [facility] Encounters Encounter Date Encounter Type Care Provider Facility Start: 07-15-2025 Emergency department patient visit RULA RUIZ [facility] Start: 07-15-2025 End: 07-17-2025 Evaluation and management of inpatient JESSICA ZHAOABIMBOLA [facility] Start: 05-21-2025 End: 05-21-2025 Refill Naseem Carter [employer] Work Phone: [facility] Comment on above: Post-op pain (Primar y Dx) Start: 05-13-2025 ambulatory Tony Amaya Facility: [facility] Start: 05-05-2025 End: 05-05-2025 Bamboo flowsheet Naseem Carter [employer] Work Phone: [facility] Start: 05-05-2025 End: 05-05-2025 Bamboo flowsheet Naseem Carter [employer] Work Phone: [facility] Start: 05-05-2025 End: 05-05-2025 Patient encounter procedure Naseem Carter [employer] Work Phone: [facility] Comment on above: Pre-op evaluation (P rimary Dx) Start: 05-05-2025 End: 05-05-2025 Preprocedural examination done Naseem Carter [employer] Work Phone: [facility] Work Phone: Start: 05-05-2025 End: 05-05-2025 ambulatory NASEEM CARTER Not Available Start: 03-28-2025 End: 03-28-2025 ambulatory DARRYL [facility] Start: 02-17-2025 End: 02-17-2025 Bamboo flowsheet Naseem Carter [employer] Work Phone: [facility] Start: 02-17-2025 End: 02-17-2025 Bamboo flowsheet Naseem Carter [employer] Work Phone: [facility] Start: 02-17-2025 End: 02-17-2025 ambulatory NASEEM CARTER Not Available Start: 02-17-2025 End: 02-17-2025 Patient encounter procedure Naseem Carter [employer] Work Phone: [facility] Comment on above: Preop examination (P rimary Dx) Start: 02-17-2025 End: 02-17-2025 Preprocedural examination done Naseem Carter [employer] Work Phone: [facility] Work Phone: Start: 02-14-2025 ambulatory [facility] Start: 02-10-2025 End: 02-14-2025 Telephone encounter JrChen Luis Armando Alonzo Zahida DO Work Phone: [facility] Start: 01-29-2025 ambulatory [facility] Start: 01-08-2025 End: 01-08-2025 Bamboo flowsheet JrChen [...] left hand Start: 12-10-2024 End: 12-10-2024 ambulatory [facility] Start: 12-02-2024 Non-patient / Non-visit Perez Amaya MD Work Phone: [facility] Work Phone: Start: 12-01-2024 End: 12-04-2024 Evaluation and management of inpatient Tony Amaya MD Work Phone: [facility]-[address] [place] [address] Work Phone: Start: 12-01-2024 Registered Recurring Tony berry MD Work Phone: [facility] Start: 11-29-2024 End: 11-29-2024 ambulatory DARRYL GOODE [facility] Start: 11-28-2024 End: 11-28-2024 Patient encounter procedure Monika Vargas DO Work Phone: [facility] Comment on above: Numbness and tinglin g in left hand Start: 11-28-2024 End: 11-28-2024 ambulatory FREDDEVEN SVETLANA Not Available Start: 11-26-2024 End: 11-26-2024 ambulatory Tony Amaya MD Work Phone: [facility] Work Phone: Start: 11-26-2024 End: 11-26-2024 Departed Referred Tony Amaya MD Work Phone: [facility] Start: 11-14-2024 Registered Recurring Tony berry MD Work Phone: [facility] Start: 11-11-2024 End: 11-11-2024 Bamboo flowsheet Zulema Smith Apllukas [employer] Work Phone: [facility] Start: 11-11-2024 End: 11-11-2024 Bamboo flowsheet Zulema Smith Apllukas [employer] Work Phone: [facility] Start: 11-11-2024 End: 11-11-2024 ambulatory ZULEMA Smith APLING Not Available Start: 11-11-2024 End: 11-11-2024 Office outpatient visit 15 minutes Zulema Mackay [employer] Work Phone: [facility] Comment on [...] End: 10-07-2024 Bamboo flowsheet Zulema Smith Apling [employer] Work Phone: [facility] Start: 10-07-2024 End: 10-07-2024 Bamboo flowsheet Zulema B Apling [employer] Work Phone: [facility] Start: 10-07-2024 End: 10-07-2024 ambulatory ZULEMA Smith APLING Not Available Start: 10-07-2024 End: 10-07-2024 Office outpatient visit 10 minutes Zulema Nicholsing [employer] Work Phone: [facility] Comment on above: Closed nondisplaced fracture of base of fifth metacarpal bone of left hand with routine healing, subsequent encounter (Primary Dx); Closed nondisplaced fracture of right patella with routine healing, unspecified fracture morphology, subsequent encounter Start: 09-16-2024 End: 09-16-2024 Bamboo flowsheet Zulema B Apling [employer] Work Phone: [facility] Start: 09-16-2024 End: 09-16-2024 Bamboo flowsheet Zulema B Apling [employer] Work Phone: [facility] Start: 09-16-2024 End: 09-16-2024 Postop follow up visit related to original px Zulema B Apling [employer] Work Phone: [facility] Comment on above: Closed nondisplaced fracture of base of fifth metacarpal bone of left hand with routine healing, subsequent encounter (Primary Dx); Closed nondisplaced fracture of right patella with routine healing, unspecified fracture morphology, subsequent encounter Start: 09-16-2024 End: 09-16-2024 ambulatory ZULEMA B APLING Not Available Start: 08-19-2024 End: 08-19-2024 Bamboo flowsheet Zulema B Apling [employer] Work Phone: [facility] Start: 08-19-2024 End: 08-19-2024 Bamboo flowsheet Zulema B Apling [employer] Work Phone: [facility] Start: 08-19-2024 End: 08-19-2024 ambulatory ZULEMA B APLING Not Available Start: 08-19-2024 End: 08-19-2024 Postop follow up visit related to original px Zulema B Apling [employer] Work Phone: [facility] Comment on above: Right elbow pain (Pr imary Dx); Closed nondisplaced fracture of base of fifth metacarpal bone of left hand with routine healing, subsequent encounter Start: 08-07-2024 End: 08-07-2024 Bamboo flowsheet Zulema Smith Apling [employer] Work Phone: [facility] Start: 08-07-2024 End: 08-07-2024 Bamboo flowsheet Zulema B Apling [employer] Work Phone: [facility] Start: 08-07-2024 End: 08-07-2024 Postop follow up visit related to original px Zulema B Apling [employer] Work Phone: [facility] Comment on above: Closed nondisplaced fracture of right patella with routine healing, unspecified fracture morphology, subsequent encounter (Primary Dx); Right elbow pain Start: 08-07-2024 End: 08-07-2024 ambulatory ZULEMA B APLING Not Available Start: 07-22-2024 End: 07-22-2024 Bamboo flowsheet Zulema B Apling [employer] Work Phone: [facility] Start: 07-22-2024 End: 07-22-2024 Bamboo flowsheet Zulema B Apling [employer] Work Phone: [facility] Start: 07-22-2024 End: 07-22-2024 Office outpatient visit 15 minutes Zulema B Apling [employer] Work Phone: [facility] Comment on above: Left hand pain (Prim isamar Dx); Contusion of dorsum of left hand; Closed nondisplaced fracture of base of fifth metacarpal bone of left hand with routine healing, subsequent encounter Start: 07-22-2024 End: 07-22-2024 ambulatory ZULEMA B APLING Not Available Start: 07-10-2024 End: 07-10-2024 Bamboo flowsheet Zulema B Apling [employer] Work Phone: [facility] Start: 07-10-2024 End: 07-10-2024 Bamboo flowsheet Zulema B Apling [employer] Work Phone: [facility] Start: 07-10-2024 End: 07-10-2024 Office outpatient visit 15 minutes Zulema B Apling [employer] Work Phone: [facility] Comment on above: Closed nondisplaced fracture of right patella, unspecified fracture morphology, initial encounter (Primary Dx); Right knee pain, unspecified chronicity Start: 07-10-2024 End: 07-10-2024 ambulatory ZULEMA B APLING Not Available Start: 06-24-2024 End: 06-24-2024 Bamboo flowsheet Zulema B Apling [employer] Work Phone: [facility] Start: 06-24-2024 End: 06-24-2024 Bamboo flowsheet Zulema B Apling [employer] Work Phone: [facility] Start: 06-24-2024 End: 06-24-2024 Office outpatient visit 25 minutes Zulema B Apling [employer] Work Phone: [facility] Comment on above: Left hand pain (Prim isamar Dx); Right knee pain, unspecified chronicity; Contusion of right knee, initial encounter; Contusion of dorsum of left hand; Left shoulder pain, unspecified chronicity; Arthritis of left acromioclavicular joint; Glenohumeral arthritis, left Start: 06-24-2024 End: 06-24-2024 ambulatory ZULEMA Smith APLING Not Available Start: 06-13-2024 End: 06-13-2024 ambulatory ZOILA MONAE Facility:[facility] Start: 06-13-2024 End: 06-13-2024 Patient encounter procedure Zoila Monae MD Work Phone: [facility] Comment on above: Transient neurologic al symptoms (Primary Dx) Start: 06-11-2024 ambulatory [facility] Start: 06-11-2024 End: 06-11-2024 Subsequent hospital visit by physician Eeg [facility] Work Phone: [facility] EEG Comment on above: Memory deficit [R41. 3] Start: 06-04-2024 End: 06-04-2024 Orders Only Zoila Monae MD Work Phone: [facility] Comment on above: Memory deficit (Prim isamar Dx); Auditory hallucinations; Mentally challenged Start: 05-28-2024 End: 09-19-2024 Telephone encounter Zoila Monae MD Work Phone: [facility] Start: 03-06-2024 End: 03-06-2024 ambulatory TONY AMAYA Facility:[facility] Start: 03-06-2024 End: 03-06-2024 Patient encounter procedure Zoila Monae MD Work Phone: [facility] Comment on above: Memory deficit (Prim isamar Dx); Auditory hallucinations; Mentally challenged Start: 01-03-2023 End: 01-07-2023 Evaluation and management of inpatient DR TONY AMAYA . Facility: Start: 11-01-2022 End: 11-02-[address] TONY AMAYA . Facility:[facility] Start: 09-30-2022 End: 10-01-[address] ROSALINA RESENDIZ Facility:[facility] Start: 09-02-2022 End: 09-02-2022 ambulatory MD Tony Amaya Work Phone: [facility] Work Phone: Start: 09-02-2022 End: 09-02-2022 Patient encounter procedure MD Tony Amaya Work Phone: [facility]-XRay Main Walker Start: 08-25-2022 End: 08-25-[address] ROSALINA RESENDIZ Facility:[facility] Start: 08-10-2022 End: 08-12-2022 Admission to same day surgery center MD Tony Amaya Work Phone: [facility] Start: 08-10-2022 End: 08-12-2022 ambulatory MD Tony Amaya Work Phone: [facility] Work Phone: Start: 08-08-2022 End: 08-08-2022 ambulatory MD Tony Amaya Work Phone: [facility] Work Phone: Start: 08-08-2022 End: 08-08-2022 Departed Referred MD Tony Amaya Work Phone: [facility] Start: 08-05-2022 End: 08-05-2022 ambulatory MD Tony Amaya Work Phone: [facility] Work Phone: Start: 08-05-2022 End: 08-05-2022 Patient encounter procedure MD Tony Amaya Work Phone: [facility] Bpk-Pjk-Vssskppx Testing Start: 07-30-2022 End: 07-30-[address] ROSALINA RESENDIZ Facility:[facility] Start: 07-04-2022 End: 07-06-[address] TONY AMAYA . Facility:[facility] Start: 07-04-2022 End: 07-04-[address] ALBERTO FERRO Facility:[facility] Start: 06-29-2022 Encounter for preprocedural laboratory examination NADEGE GARDNER . [facility] Start: 06-27-2022 End: 06-28-2022 ambulatory NADEGE [...] Evaluation and management of inpatient MICHAELAdolfo RODRIGUEZD Facility:[facility] Procedures Date Procedure Procedure Detail Performing Clinician Start: 11-28-2024 End: 11-28-2024 Needle emg ea extremty w/paraspinl area complete Monika Vargas DO Work Phone: Start: 11-26-2024 Urine culture Tony Amaya MD Work Phone: Start: 10-07-2024 Radex hand minimum 3 views Zulema hoffmann TREE PLANTER Work Phone: Start: 09-16-2024 Radex hand minimum 3 views Zulema hoffmann TREE PLANTER Work Phone: Start: 09-16-2024 Radiologic examination knee 3 views Zulema Mackay TREE PLANTER Work Phone: Start: 08-19-2024 Radex hand minimum 3 views Zulema hoffmann TREE PLANTER Work Phone: Start: 08-07-2024 End: 08-07-2024 Radex elbow 2 views Zulema Mackay TREE PLANTER Work Phone: Start: 07-22-2024 Radex hand minimum 3 views Zulema Bailey g TREE PLANTER Work Phone: Start: 06-24-2024 Radiologic examination knee 3 views Zulema Mackay TREE PLANTER Work Phone: Start: 06-11-2024 Electroencephalogram w/rec awake&drowsy Zoila Monae MD Work Phone: Start: 06-11-2024 Electroencephalogram w/rec awake&drowsy [facility] Start: 09-02-2022 Plain chest X-ray MD [...] RSV Vaccine (1 - 1-dose 75+ series) [facility] Start: 02-19-2027 Diabetes Screening Diabetes Screening [facility] Start: 06-04-2025 End: 06-04-2025 Patient encounter procedure 06/04/2025 1:00 PM EDT Office Visit [facility] [address] [facility] [address] [place] [address] Jr. Luis Armando Teague DO [address] [facility] [address] [place] [address] [facility] Start: 05-05-2025 End: 05-05-2025 Patient encounter procedure 05/05/2025 2:00 PM EDT Office Visit [facility] [address] [address] Naseem Carter, KALPANA [address] [place], [place] [phone] Arrived [facility] Comment on above: Arrived Start: 03-11-2025 End: 03-11-2025 Patient encounter procedure 03/11/2025 2:00 PM EDT Office Visit [facility] [address] [place] [address] Jeter, Chuy J, PA [address] [place] [address] [place] [address] [facility] Start: 02-17-2025 End: 02-17-2025 Patient encounter procedure 02/17/2025 1:30 PM EDT Office Visit [facility] [address] [place] [phone] Naseem Carter, TREE PLANTER [address] [place], [place] [phone] [facility] Start: 02-10-2025 End: 02-10-2025 Patient encounter procedure 02/10/2025 11:00 AM EDT Office Visit [facility] [address] [place] [phone] Naseem Carter NP [address] [place] [address] [facility] Start: 12-04-2024 [facility] Start: 12-01-2024 Hospital admission [facility] Start: 12-01-2024 [facility] Start: 11-26-2024 Urine culture [facility] Start: 11-26-2024 Bacteria identified in Urine by Culture Urine Culture [facility] Start: 11-11-2024 End: 11-11-2024 Patient encounter procedure 11/11/2024 10:00 AM EST Office Visit [facility] [address] [facility] [address] [place] [address] Zulema Mackay NP [address] [facility] [address] [place] [address] [facility] Start: 11-08-2024 End: 11-08-2024 ambulatory 11/08/2024 12:00 PM EST Treatment [facility] [address] [place] [address] [place] [address] Zehra Bunch, OT [address] [place] [address] [facility] Start: 11-05-2024 End: 11-05-2024 ambulatory 11/05/2024 12:00 PM EST Treatment [facility] [address] [place] [address] [place] [address] Zehra Bunch, OT [address] [place] [address] [facility] Start: 11-01-2024 End: 11-01-2024 ambulatory 11/01/2024 1:00 PM EST Treatment [facility] [address] [place] [address] Zehra Bunch, OT [address] [place] [address] [facility] Start: 10-29-2024 End: 10-29-2024 ambulatory [facility] Comment on above: Arrived Start: 10-25-2024 End: 10-25-2024 ambulatory 10/25/2024 9:00 AM EST Treatment [facility] [address] [place] [address] Zehra Bunch, OT [address] [place] [address] [facility] Start: 10-22-2024 End: 10-22-2024 ambulatory 10/22/2024 1:00 PM EST Evaluation [facility] [address] [place] [address] Zehra Bunch, OT [address] [place] [address] Closed nondisplaced fracture of base of fifth metacarpal bone of left hand with routine healing, subsequent encounter [facility] Comment on above: Closed nondisplaced fracture of base of fifth metacarpal bone of left hand with routine healing, subsequent encounter Start: 10-11-2024 End: 10-11-2024 ambulatory 10/11/2024 1:30 PM EST Evaluation [facility] [address] [place] [address] Florina Degroot, OT [address] [place] [address] [facility] Start: 10-07-2024 End: 10-07-2024 Patient encounter procedure 10/07/2024 11:15 AM EST Office Visit [facility] [address] [place] [address] [place] [address] Zulema Mackay, TREE PLANTER [address] [place] [address] [facility] Start: 09-16-2024 End: 09-16-2024 Patient encounter procedure 09/16/2024 10:00 AM EST Office Visit [facility] [address] [place] [address] [place] [address] Zulema Mackay, TREE PLANTER [address] [place] [address] [facility] Start: 08-19-2024 End: 08-19-2024 Patient encounter procedure 08/19/2024 12:30 PM EST Office Visit [facility] [address] [place] [address] [place] [address] Zulema Mackay, TREE PLANTER [address] [place] [address] [facility] Start: 08-07-2024 End: 08-07-2024 [...] procedure 07/10/2024 12:15 PM EDT Office Visit [facility] [address] [place] [address] Zulema Mackay, TREE PLANTER [address] [place] [address] Arrived [facility] Comment on above: Arrived Start: 06-24-2024 End: 06-24-2024 Patient encounter procedure 06/24/2024 10:30 AM EDT Office Visit [facility] [address] [facility] [address] [place] [address] Zulema Mackay, TREE PLANTER [address] [facility] [address] [place] [address] Left hand pain (Primary Dx); Right knee pain, unspecified chronicity; Contusion of right knee, initial encounter; Contusion of dorsum of left hand; Left shoulder pain, unspecified chronicity; Arthritis of left acromioclavicular joint; Glenohumeral arthritis, left [facility] Comment on above: Left hand pain (Primary Dx); Right knee pain, unspecified chronicity; Contusion of right knee, initial encounter; Contusion of dorsum of left hand; Left shoulder pain, unspecified chronicity; Arthritis of left acromioclavicular joint; Glenohumeral arthritis, left Start: 06-13-2024 End: 06-13-2024 Patient encounter procedure 06/13/2024 12:30 PM EDT Office Visit Neurology [facility] [address] [place] [address] [place] [address] [place], [place] [phone] Return in about 3 months (around 06/06/2024) for with Dr. Monae. Neurology [facility] Comment on above: Return in about 3 months (around ) for with Dr. Monae. Start: 06-11-2024 End: 06-11-2024 Patient encounter procedure 06/11/2024 9:00 AM EDT Appointment [facility] [address] [address] Memory deficit [R41.3] [facility] Comment on above: Memory deficit [R41.3] Start: 06-02-2024 Covid-19 Vaccine ( season) Covid-19 Vaccine () [facility] Start: 06-02-2024 Covid-19 Vaccine () Covid-19 Vaccine () [facility] Start: 06-02-2024 Influenza vaccination [facility] Start: 03-29-2024 End: 03-29-2024 Patient encounter procedure 03/29/2024 11:45 AM EDT Office Visit Neurology [address] [place] [address] Memory deficit [R41.3] Neurology Comment on above: Memory deficit [R41.3] Start: 10-02-2023 Behavioral Health Screening Behavioral Health Screening [facility] Start: 06-02-2023 Covid-19 Vaccine ( season) Covid-19 Vaccine ( season) [facility] Start: 08-12-2022 [facility] Start: 08-10-2022 Consultation [facility] Start: 08-10-2022 End: 08-10-2022 [facility] Start: 2014 Pneumococcal Vaccine: 50+ (1 of 1 - PCV) Pneumococcal Vaccine: 50+ (1 of 1 - PCV) [facility] Start: 2014 Shingrix Vaccine (1 of 2) Shingrix Vaccine (1 of 2) [facility] Start: 2009 Lipid panel Lipid Screening [facility] Start: 2009 Screening for malignant neoplasm of colon [facility] Start: 2004 Screening for malignant neoplasm of breast Mammogram Screening [facility] Start: 1994 Screening for malignant neoplasm of cervix HPV Testing [facility] Start: 1985 Screening for malignant neoplasm of cervix [facility] Start: 1983 Urine microalbumin profile DTaP,Tdap,Td Vaccine (1 - Tdap) [facility] Start: 1982 Anxiety Screening Anxiety Screening [facility] Start: 1982 Depression Screening Depression Screening [facility] Start: 1982 Hepatitis C screening Hepatitis C Screening [facility] Start: 1982 HIV screening HIV Screening [facility] Acid Fast Bacilli Cu lture & Smear Acid Fast Bacilli Culture & Smear [facility] Anaerobic microbial culture Anaerobic Culture [facility] Bacteria identified in Urine by Culture Urine Culture [facility] Chlamydia trachomati s [Presence] in Unspecified specimen by Organism specific culture [facility] Work Phone: Chlamydia trachomati s [Presence] in Unspecified specimen by Organism specific culture [facility] EEG EEG NEUROLOGY 12:00 AM EDT [facility] End: 03-06-2025 EPIL EEG ROUTINE EPIL EEG ROUTINE NEUROLOGY Routine Memory deficit Auditory hallucinations 1 Occurrences starting 03/06/2024 until 03/06/2025 [facility] Work Phone: Comment on above: 1 Occurrences starting 03/06/2024 until 03/06/2025 Fungal Culture Result 1 Fungal Culture Re sult 1 [facility] Fungus identified in Unspecified specimen by Culture [facility] Work Phone: Mycobacterium sp identified in Unspecified specimen by Organism specific culture [facility] Work Phone: Mycology Culture Mycology Culture [facility] Patient Education Bipolar disord er - Discharge instructions [facility] Instructions Know your Meds [facility] Work Phone: Patient referral [facility] Work Phone: [facility] Payers Date Payer Category Payer Self-pay 2017 Medicaid [id number] 2017 Medicaid (Managed Care) [employer] Member Subscriber Plan / Payer (Effective 2017-Present) Name: Emigdio Apodaca Relation to Subscriber: Self Name: Emigdio Apodaca Payer ID: Not on file Group ID: Not on file Type: Not on file Address: [place] [id number] 1964 Unknown [id number] 2.16.840.1.662918.3.579.2. 647 1964 Unknown [id number] 2.16.840.1.852624.3.579.2. 593 1964 Unknown [id number] 2.16.840.1.202454.3.579.2. 593 1964 Unknown [id number] 2.16.840.1.334524.3.579.2. 593 1964 Unknown [id number] 2.16.840.1.938595.3.579.2. 593 1964 Unknown [id number] 2.16.840.1.291587.3.579.2. 593 1964 Unknown [id number] 2.16.840.1.894544.3.579.2. 593 1964 Unknown [id number] 2.16.840.1.188845.3.579.2. 593 1964 Unknown [id number] 2.16.840.1.438949.3.579.2. 593 1964 Unknown [id number] 2.16.840.1.490024.3.579.2. 593 1964 Unknown [id number] 2.16.840.1.170363.3.579.2. 593 1964 Unknown [id number] 2.16.840.1.849902.3.579.2. 593 1964 Unknown [id number] 2.16.840.1.736027.3.579.2. 593 1964 Unknown [id number] 2.16.840.1.191666.3.579.2. 593 1964 Unknown [id number] 2.16.840.1.775323.3.579.2. 593 1964 Unknown [id number] 2.16.840.1.219847.3.579.2. 125 1964 Unknown [id number] 2.16840.1.513921.3.579.2. 1258 1964 Unknown [id number] 2.16840.1.004013.3.579.2. 1258 1964 Unknown [id number] 2.840.1.096216.3.579.2. 125 1964 Unknown [id number] 2.840.1.136270.3.579.2. 125 1964 Unknown [id number] 2.840.1.655843.3.579.2. 1258 1964 Unknown [id number] 2.840.1.595697.3.579.2. 125 1964 Unknown [id number] 2.840.1.962712.3.579.2. 125 1964 Unknown [id number] 2.840.1.453559.3.579.2. 125 1964 Unknown [id number] 2.840.1.307714.3.579.2. 1258 1964 Unknown [id number] 2.16840.1.206140.3.579.2. 1258 1964 Unknown [id number] 2.16840.1.672418.3.579.2. 1258 1964 Unknown [id number] 2.16.840.1.330381.3.579.2. 1258 1964 Unknown [id number] 2.16.840.1.419878.3.579.2. 1258 1964 Unknown [id number] 2.16.840.1.343819.3.579.2. 1258 1964 Unknown [id number] 2.16.840.1.415151.3.579.2. 1258 1964 Unknown [id number] 2.16.840.1.627099.3.579.2. 1258 1964 Unknown [id number] 2.16.840.1.895416.3.579.2. 1258 1964 Unknown [id number] 2.16.840.1.166404.3.579.2. 1258 1964 Unknown [id number] 2.16.840.1.734376.3.579.2. 1258 1964 Unknown [id number] 2.16.840.1.543467.3.579.2. 1258 1964 Unknown [id number] 2.16.840.1.554421.3.579.2. 1258 1964 Unknown [id number] 2.16.840.1.133775.3.579.2. 1258 1964 Unknown [id number] 2.16.840.1.448213.3.579.2. 1258 1964 Unknown [id number] 2.16.840.1.302688.3.579.2. 9 1959 Self-pay [id number] 1959 Unknown [id number] Medicaid [employer] Medicaid [id number] Unknown [id number] 2.16.840.1.182648.3.579.2. 531 Unknown [id number] 2.16.840.1.943758.3.579.2. 531 Unknown [id number] 2.16.840.1.557564.3.579.2. 531 Social History Date Type Detail Facility Tobacco smoking stat us NHIS Unknown if ever smoked [facility] Work Phone: Start: 1965 Sex Assigned At Female [facility] Start: 08-10-2022 End: 06-24-2024 Tobacco smoking status NHIS Never smoked tobacco (finding) [facility] Start: 03-06-2024 Tobacco smoking status TNIS Tobacco smoking consumption unknown [facility] Start: 03-06-2024 End: 05-05-2025 History of Social function [facility] Start: 03-06-2024 End: 05-05-2025 Area Deprivation Index [facility] National Score (1-10 0), lower number is lower risk 76 [facility] Start: 1965 Sex Assigned At Not on file [facility] Start: 06-24-2024 Tobacco use and exposure Smokeless tobacco non-user [facility] Start: 06-24-2024 End: 05-05-2025 Alcoholic beverage intake Ex-drinker (finding) [facility] Start: 06-21-2024 Gender identity Identifies as female gender (finding) [facility] Start: 06-21-2024 Sexual orientation Heterosexual (finding) [facility] Start: 11-28-2024 End: 12-04-2024 Sex Female (finding) [facility] Medical Equipment Procedure Code Equipment Code Equipment Origin al Text Equipment Identifier Dates Thoracotomy Surgical adhesive/sealant, human-derived ([id number] [facility] Start: 08-10-2022 Goals Date Patient Goal Desired Activity /State Functional Status Date Assessment Result Facility 12-04-2024 Functional status Patient at Baseline [facility] Work Phone: 08-12-2022 Functional status Patient at Baseline [facility] Work Phone: Mental Status Date Assessment Result Facility 12-04-2024 Cognitive function Cognitive Sta tus Patient at Baseline [facility] Work Phone: 08-12-2022 Cognitive function Cognitive Sta tus Patient at Baseline [facility] Work Phone: Clinical Notes 08-10-2022 to [...] be re-evaluated every 24 hours. 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 Not on oxygen at home Continue prednisone, azithromycin, DuoNebs, reestablish care with pulmonology outpatient. Possible DC tomorrow Eyal Brooke MD climatology professor, Division of Internal Medicine [facility] Med-7 Daily Progress Note - 07/16/2025 12:37 PM; Room: [address] [place] [address] Admission: 07/15/2025 2:46 PM; Length of stay: [...] a day. Patient has not seen a housing inspector for a while and would like to establish care with a new housing inspector. She reports shortness of breath, cough, and [...] Active Inpatient Problems Principal Problem: COPD exacerbation (CMS/[facility]) Active Problems: Other hyperlipidemia Acute hypoxic [...] 4.01 HEMOGLOBIN g/dL (more content not included)... [facility] 07-16-2025 Note 07/16/25 1211 Admission Assessment [...] Status Interested Does the patient have a embedded case manager assigned to them through their [...] to send link and activate MyChart? No [facility] 07-16-2025 Note Respiratory Progress Note Patient [...] be re-evaluated every 24 hours. Beti Martin, CRANE HOOKER 07/16/2025 [facility] 07-15-2025 Note - Continue levothyroxine [facility] 07-15-2025 Note - Continue Lamictal, Celexa, Wellbutrin [facility] 07-15-2025 Note - S/p PPM [facility] 07-15-2025 Note - Continue simvastatin [facility] 07-15-2025 Note - Patient hypoxic up on arrival, 2 L nasal cannula placed, wean as able -Begin azithromycin x 3 days -Begin prednisone 40 mg oral x 5 days -Mucinex every 12 hours as needed -DuoNebs every 6 hours as needed [facility] 07-15-2025 Note 07/15/252021 Bronchodilator Assessment Grid RR 3 Dyspnea 2 Breath Sounds 2 Resp History 2 Oxygen to keep SpO2 >/= 92% 2 Peak Flow 0 Level Level 2 Patient came in through ED with family SOB. Per protocol will be scheduled TID [facility] 07-15-2025 Note Hospital Medicine History and Physical 07/15/2025 7:07 PM THE HOSPITALIST TEAM PREFERS TO USE [employer] FOR NON-URGENT COMMUNICATION 7AM-7PM. IF I DO NOT RESPOND WITHIN 20 MINUTES OR URGENT MATTERS, PLEASE CALL THROUGH THE NEWSPAPER REPORTER. FROM 7PM-7AM, PLEASE PAGE [phone](COVR). Chief Complaint Chief Complaint Patient presents with [...] COPD exacerbation (CMS/HCC) Acute hypoxic respiratory failure (CMS/[facility]) - Patient hypoxic upon arrival, 2 L nasal cannula placed, wean as able -Begin azithromycin x 3 days -Begin prednisone 40 mg oral x 5 days -Mucinex every 12 hours as needed -DuoNebs every 6 hours as needed Other hyperlipidemia - Continue simvastatin Complete AV block ([facility]) - S/p PPM Bipolar depression ([facility]) - Continue Lamictal, Celexa, Wellbutrin Acquired [...] this hospital stay by a member of [facility]. Past Medical History Medical History[1] Past [...] use: Not Currently (more content not included)... [facility] 07-15-2025 Note 07/15/25 3167 Financial Resource Strain How hard is it [...] were you homeless or living in a residential (including now)? N Transportation Needs In the [...] than 3 How often do you attend taoist or orthodoxy services? More than 4 Do you belong to any clubs or organizations such as taoist groups, unions, fraternal or athletic groups, or [...] In the past 12 months has the true[x] Media, gas, oil, or water [employer] threatened to shut off services in your home? 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 [facility] 05-21-2025 Telephone encounter Note Post op pain rx. PDMP reviewed [facility] 05-21-2025 Miscellaneous Notes Post op pain rx. PDMP reviewed documented in this encounter [facility] 05-05-2025 History of Presen [...] Daily RT ergocalciferol (Vitamin D-2) 1.25 MG (45999 UT) capsule 1 capsule escitalopram (LEXAPRO) 10 [...] for Post-Op June 04 @ 1:[address] [place] [address] Teague. documented in this encounter [facility] 03-28-2025 Note SUBJECTIVE Reason [...] bradycardia. The patient was recently admitted to [facility] (11/25-11/27) after running out of home oxygen for approximately two weeks, experiencing dizziness, shortness of breath, and oxygen desaturations below 90%. She also had a four-day history of fever, nausea, vomiting, and decreased oral intake. Workup revealed influenza A and right lower lobe pneumonia. She was treated with supplemental oxygen, Tamiflu, steroids, and antibiotics before discharge. Most recent discharge from [facility] admission date 02/20/2025 Primary diagnoses hypoxia, acute [...] 20 mg, Daily (more content not included)... [facility] 03-28-2025 Note Patient here today f or a 4 month follow up. Patient states she is doing well, no cardiac complaints at this time. Patient states she will be having left hand surgery in April or May with Dr. Teague. Review of Systems Constitutional: Negative. [facility] 02-17-2025 History of Presen t illness [...] Daily RT ergocalciferol (Vitamin D-2) 1.25 MG (51376 UT) capsule 1 capsule escitalopram (LEXAPRO) 10 [...] for requiring urgent evaluation. Naseem Carter APRN, TREE PLANTER-C Naseem Carter NP documented in this encounter [facility] 02-11-2025 Telephone encounter Note Patient can come to [facility] 02/17 at 1:30. [facility] 02-11-2025 Miscellaneous Notes Patient can come to [facility] 02/17 at 1:30. Called patient back, had to leave a voicemail. She does need to come back in for surgery instructions. She can do Monday @ 1:30 if she calls back. Patient called and left vm stating she missed her appt today because she had the flu. Please call patient at [phone]. documented in this encounter [facility] 02-11-2025 Telephone encounter Note Called patient back, had to leave a voicemail. She does need to come back in for surgery instructions. She can do Monday @ 1:30 if she calls back. [facility] 02-10-2025 Telephone encounter Note Patient called and left vm stating she missed her appt today because she had the flu. Please call patient at [phone]. [facility] 01-08-2025 History of Presen [...] 09/16/24, 08/19/24, 07/22/24 IN EPIC XRAY 06/19/25 @[facility] (L) UE EMG 11/28/24 NO MRI [...] CONTUSION TO (L) HAND ; TAKEN TO [facility] ER - TX WITH NORCO (R) [...] Daily RT ergocalciferol (Vitamin D-2) 1.25 MG (44038 UT) capsule 1 capsule escitalopram (LEXAPRO) 10 [...] is normal. 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 documented in this encounter [facility] 12-04-2024 Discharge summary Note Date/Time December 04, 2024 9:05 am [facility] [address] [place] [address] Discharge Summary Signed Patient: Emigdio Apodaca MR#: [id number] : 1965 Acct:[id number] Age/Sex: 59 / F Adm Date: 5 Loc: Room: [address] [place] [address]: Jaquan Babin MD Copies to: [...] respond. 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 She reports not eating, poor ADLs, not taking her medications and sleeping too much. She denies alcoholor illegal substance abuse. Patient denies hallucinations. Patient did report her sister completed suicide. Of note, patient reports being in [facility] Monday and Monday of last week with [...] them since Monday when she was at [facility] for the flu. She states her diarrhea has improved. She did eat some breakfast this morning but states she is a picky eater. Patient sees Jennifer Beasley counselor in [place]. 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 If at any time you are feeling an increase inyour psychiatric symptoms, call your physician or behavioral healthcare provider. If any time you have thoughts of harming yourself or others contact one of the following: Call (available 24/04) Crisis Text Line (available 24/04) text 4HOPE to [phone] [facility] Hope Line (available 8 a.m. Midnight) call [phone] ([phone]) Instructions: Know your Meds Prescriptions: Continued lamotrigine [...] <Electronically signed by Jaquan Babin MD> 12/04/24 [facility] Work Phone: 1(118) 210-145503-05-[address] [address] Discharge Summary Signed Patient: Emigdio Apodaca MR#: [id number] : 1965 Acct:[id number] Age/Sex: 59 / F Adm Date: 5 Loc: Room: [address] [place] [address]: Jaquan Babin MD Copies to: [...] respond. 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 She reports not eating, poor ADLs, not taking her medications and sleeping too much. She denies alcoholor illegal substance abuse. Patient denies hallucinations. Patientdid report her sister completed suicide. Of note, patient reports being in [facility] Monday and Monday of last week with [...] them since Monday when she was at [facility] for the flu. She states herdiarrhea has improved. She did eat some breakfast this morning but states she is a picky eater. Patient sees Jennifer Beasley, counselor in [place]. 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 If at anytime you are feeling an increase inyour psychiatric symptoms, call your physician or behavioral healthcare provider. If any time you have thoughts of harming yourself or others contact one of the following: Call (available 24/04) Crisis Text Line (available 24/04) text 4HOPE to [phone] [facility] Hope Line (available 8 a.m. Midnight) call [phone] ([phone]) Instructions: Know your Meds Prescriptions: Continued lamotrigine [...] Patient Comments: 3 days left Follow Up: [facility] [Outside] (established) Tony Amaya MD [Primary Care Provider] - (Call for any medical needs) Exam Physical Exam Vital Signs: Temp Pulse Resp BP Pulse Ox O2 Del Method 98.1 F 78 16 99/66 L 96 Room Air 12/03/24 20:15 12/03/24 20:15 12/03/24 20:15 12/03/24 20:15 12/03/24 20:15 12/03/24 20:15 Documented By: Jaquan Babin MD 12/04/24 1001 Signed By: 12/04/24 1005 [facility]03-04-2025 Progress note Author Jaquan Babin [facility] Note Date/Time December 03, 2024 1:11 pm [facility] [address] [place] [address] Psychiatry Progress Note Signed Patient: Emigdio Apodaca MR#: [id number] : 1965 Acct:[id number] Age/Sex: 59 / F Adm Date: 5 Loc: Room: [address] [place] [address] Type : ADM IN Attending Dr: Jaquan [...] <Electronically signed by Jaquan Babin MD> 12/03/24 [facility] Work Phone: 1(581) 725-101003-04-2025 [place] [address] Psychiatry Progress Note Signed Patient: Emigdio Apodaca MR#: [id number] : 1965 Acct:[id number] Age/Sex: 59 / F Adm Date: 5 Loc: Room: [address] [place] [address] Type : ADM IN Attending Dr: Jaquan [...] Babin MD 12/03/24 0939 Signed By: 12/03/[address] [place], [place] 5705103-03-2025 History and physical note Author Jaquan Babin [facility] Note Date/Time December 02, 2024 1:55 pm [facility] [address] [place] [address] Psychiatry H&P Signed Patient: Emigdio Apodaca MR#: [id number] : 1965 Acct:[id number] Age/Sex: 59 / F Adm Date: 5 Loc: Room: [address] [place] [address] Type: ADM IN Attending Dr: Jaquan Babin [...] respond. 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 She reports not eating, poor ADLs, not taking her medications and sleeping too much. She denies alcoholor illegal substance abuse. Patient denies hallucinations. Patient did report her sister completed suicide. Of note, patient reports being in [facility] Monday and Monday of last week with [...] them since Monday when she was at [facility] for the flu. She states her diarrhea has improved. She did eat some breakfast this morning but states she is a picky eater. Patient sees Jennifer Beasley counselor in [place]. 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 She reports not eating, poor ADLs, not taking her medications and sleeping too much. She denies alcoholor illegal substance abuse. Patient denies hallucinations. Patientdid report her sister completed suicide. Of note, patient reports being in [facility] Monday and Monday of last week with [...] them since Monday when she was at [facility] for the flu. She states her diarrhea has improved. She did eat some breakfast this morning but states she is a picky eater. Patient sees Jennifer Beasley counselor in [place]. 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 The patient was recently admitted to [facility] (11/25-11/27) after running out of home oxygen [...] Ventricular Rate 02/21/2024 79 (more content not included)...[facility]02-27-2025 History of Present illness Narrative* Tye Dominguez, ARRT - 11/28/2024 11:00 AM EST Images from the original note were not included. Reason for Appointment: EMG Patient: Emigdio Apodaca : 1965 EMG Computer: Figgu Referring Physician: Zulema GIBSON EMG: CAITLIN price clerk: Tye Dominguez RT(R) Office Location: [place] Reason for EMG: c/o numbness/tingling in left hand. No hx of DM. Not on blood thinners. Comments: Procedure was explained to the patient who expressed understanding. Patient appeared to have tolerated the test well despite some discomfort due to the nature of the test. documented in this encounterNevada Regional Medical [id number] History of Present illness Narrative* Zulema Mackay [...] able to walk afterwards, was taken to [facility] ER on 06/19/24 by her partner [...] to the therapist recommending a Neurologist. [place]: XR/06/19/24/[facility] LT hand, RT knee, LT shoulder, [facility] ER 06/19/24, norco, IBU, XR NOMS [...] able to walk afterwards, was taken to [facility] ER on 06/19/24 by her partner [...] was dx with 6 months ago. [place]: XR/06/19/24/[facility] LT hand, RT knee, LT shoulder, [facility] ER 06/19/24, norco, IBU, XR NOMS [...] sensation in all fingers documented in this encounterNevada Regional Medical CenterJiywpphzsn00-05-4683 History of Present illness Narrative* Zehra Bunch, OT - 11/08/2024 12:00 PM EST Occupational Therapy Occupational Therapy Treatment Visit Patient Name: Emigdio Apodaca Today's Date: 11/08/2024 Linked Episodes Type: Episode: Status: Noted: Resolved: Last update: Updated by: Occupational Therapy L 5th digit fracture Active 10/08/2024 11/08/2024 9:28 AM Zehra Bunch OT Comments:Episode created from referral [id number] Visit number: 02/06 Timed Code Treatment minutes: [...] numbness and spasms to the L hand. Financial Cost Analyst strength has increased to 25# and LP has remained at 5#. Encouraged stretching/ nerve glides at home. Does have a follow upwith ortho on Monday. P: Continue with POC, progress per toleration. documented in this encounterNevada Regional Medical [id number] History of Present illness Narrative* Zehra Bunch OT - 11/05/2024 12:00 PM EST Occupational Therapy Occupational Therapy Treatment Visit Patient Name: Emigdio Apodaca Today's Date: 11/05/2024 Linked Episodes Type: Episode: Status: Noted: Resolved: Last update: Updated by: Occupational Therapy L 5th digit fracture Active 10/08/2024 11/01/2024 12:46 PM Zehra Bunch OT Comments:Episode created from referral [id number] Visit number: 4 Timed Code Treatment minutes: [...] POC, progress per toleration. documented in this encounterNOPutnam County Memorial HospitalCspbkqcnxk08-51-9625 Telephone encounter Note* Telephone Encounter - Joanna Boo - 11/01/2024 12:43 PM EST She called noting not feeling well and is cx OT for today. I reminded her, her next on 11/05. She said she'll try to be here; I told her if not feeling better to contact. NOMS [id number] Miscellaneous Notes* Telephone Encounter - Joanna Boo - 11/01/2024 12:43 PM EST She called noting not feeling well and is cx OT for today. I reminded her, her next on 11/05. She said she'll try to be here; I told her if not feeling better to contact. documented in this encounterNevada Regional Medical CenterPsxcarejgd81-68-9786 History of Present illness Narrative* Zehra Bunch, OT - 10/29/2024 1:00 PM EST Occupational Therapy Occupational Therapy Treatment Visit Patient Name: Emigdio Apodaca Today's Date: 10/29/2024 Linked Episodes Type: Episode: Status: Noted: Resolved: Last update: Updated by: Occupational Therapy L 5th digit fracture Active 10/08/2024 10/28/2024 1:49 PM Zehra Bunch OT Comments:Episode created from referral [id number] Visit number: 12/07 Timed Code Treatment minutes: [...] POC, progress per toleration. documented in this encounterNevada Regional Medical CenterYgjdvtbilk04-27-3209 History of Present illness Narrative* Zehra Bunch OT - 10/25/2024 9:00 AM EST Occupational Therapy Occupational Therapy Treatment Visit Patient Name: Emigdio Apodaca Today's Date: 10/25/2024 Linked Episodes Type: Episode: Status: Noted: Resolved: Last update: Updated by: Occupational Therapy L 5th digit fracture Active 10/08/2024 10/24/2024 11:08 AM Zehra Bunch OT Comments:Episode created from referral [id number] Visit number: 2 Timed Code Treatment minutes: [...] POC, progress per toleration. documented in this encounterNevada Regional Medical CenterVceezjuhni10-25-1367 History of Present illness Narrative* Zehra Bunch [...] Amb, Background User Comments:Episode created from referral [id number] Visit number: 1 Subjective Interim History: 59 [...] 5th digit. Strength Strength additional comments: L ruling machine operator strength: 15# LP: 5# R ruling machine operator strength: 30# LP: 9 Treatment: Education: HEP [...] I/ADL tasks at discharge. Pt to increase ruling machine operator strength by 10# and LP by 2# [...] Please sign below. Date: documented in this encounterNevada Regional Medical CenterDrvhefnqmp89-25-2367 Telephone encounter Note* Telephone Encounter - Joanna Boo - 10/08/2024 1:36 PM EST She called back and we scheduled her OT Eval for 10 w/ Florinawaldo Degroot, OT. [facility] [id number] Miscellaneous Notes* Telephone Encounter - Joanna Boo - 10/08/2024 1:36 PM EST She called back and we scheduled her OT Eval for 10 w/ Florina Degroot, OT. * Telephone Encounter - Joanna Boo - 10/08/2024 11:46 AM EST Tried to contact to set-up OT for L hand, but the voicemail is full. documented in this encounterNevada Regional Medical CenterXrxknzbchf20-86-1810 Telephone encounter Note* Telephone Encounter - Joanna Boo - 10/08/2024 11:46 AM EST Tried to contact to set-up OT for L hand, but the voicemail is full. [facility] [id number] History of Present illness Narrative* Zulema Mackay NP - 10/07/2024 11:15 AM EST Images from the original note were not included. Subjective Patient ID: Emigdio Apodaca is a 59 y.o. female. LT hand 3.5 months s/p LT hand contusion She notes a few days after getting the cast off, she smashed her hand in the car door at [facility]. Here to check ROM Pt had tripped over a sidewalk and Fell landing on her left hand and right knee. DOI 06/19/24, she then hit her chest and rolled over onto her left shoulder hitting her shoulder. She was able to walk afterwards, was taken to [facility] ER on 06/19/24 by her partner [...] XR/06/19/24/[facility] LT hand, RT knee, LT shoulder, [facility] ER 06/19/24, norco, IBU, XR NOMS 07/22/24, XRNOMS 08/19/[address] RT knee [facility] 07/05/24 Notes she started taking fosamax in 2023. States her knee is feeling better. 3.5 months Pt had tripped over a sidewalk and Fell landing on her left hand and right knee. DOI 06/19/24, she then hit her chest and rolled over onto her left shoulder hitting her shoulder. She was able to walk afterwards, was taken to [facility] ER on 06/19/24 by her partner [...] XR/06/19/24/[facility] LT hand, RT knee, LT shoulder, [facility] ER 06/19/24, norco, IBU, XR NOMS [...] able to walk afterwards, was taken to [facility] ER on 06/19/24 by her partner Pt is RT handed. Hand is stiff and has been getting spasms still between 4th and 5th MC. Denies pain today. Taking TYL for multiple things. Using ice and heat. Has been moving fingers. Good ROM. Intermittent numbness, mostly in thumb. Intermittent swelling. Sometimes wakes at HS. [place]: XR/06/19/24/[facility] LT hand, RT knee, LT shoulder, [facility] ER 06/19/24, norco, IBU, XR NOMS [...] able to walk afterwards, was taken to [facility] ER on 06/19/24 by her partner [...] was dx with 6 months ago. TX: XR/06/19/24/[facility] LT hand, RT knee, LT shoulder, [facility] ER 06/19/24, norco, IBU, XR NOMS 06/24, CT [facility]1, XR NOMS 08/07/24 RT elbow Pt notes she fell on 08/04/23 and hit her right elbow. strip machine tender to the touch, medial elbow. [...] Capillary refill: <3 sec documented in this [facility]12-16-2024 History of Present illness Narrative* Zulema Mackay, TREE PLANTER - 09/16/2024 10:00 AM EST Images from [...] able to walk afterwards, was taken to [facility] ER on 06/19/24 by her partner [...] today, goes to 5-6/10 with spasms. [place]: XR/06/19/24/[facility] LT hand, RT knee, LT shoulder, [facility] ER 06/19/24, norco, IBU, XR NOMS [...] able to walk afterwards, was taken to [facility] ER on 06/19/24 by her partner [...] Capillary refill: <3 sec documented in this [facility]11-18-2024 History of Present illness Narrative* Zulema Mackay [...] able to walk afterwards, was taken to [facility] ER on 06/19/24 by her partner [...] numbness in the thumb. Denies swelling. [place]: XR/06/19/24/[facility] LT hand, RT knee, LT shoulder, [facility] ER 06/19/24, norco, IBU, XR NOMS [...] base of 5th MC fracture. Zulema Mackay CREDIT MANAGER Assessment/Plan Encounter Diagnoses: ICD-10-CM 1. Right elbow [...] of the left hand documented in this encounterNevada Regional Medical [id number] History of Present illness Narrative* Zulema Mackay NP - 08/07/2024 11:00 AM EST Images from the original note were not included. Subjective Patient ID: Emigdio Apodaca is a 58 y.o. female. RT Knee CT RT knee [facility] 07/05/24 Notes she started taking fosamax [...] able to walk afterwards, was taken to [facility] ER on 06/19/24 by her partner [...] was dx with 6 months ago. [place]: XR/06/19/24/[facility] LT hand, RT knee, LT shoulder, [facility] ER 06/19/24, norco, IBU, XR NOMS [...] healing non displaced patella fracture Zulema Mackay [facility] XR elbow 1 or 2 views right Imaging Result: Xrays AP and LAT of the right elbow performed on August 07, 2024 demonstrates no swelling, no fractures appreciated, joint congruent. Impression Unremarkable xrays of the right elbow Zulema Mackay [facility] Assessment/Plan Encounter Diagnoses: ICD-10-CM 1. Closed nondisplaced [...] how she is doing. documented in this encounterNevada Regional Medical [id number] History of Present illness Narrative* Zulema Mackay [...] able to walk afterwards, was taken to [facility] ER on 06/19/24 by her partner [...] Healing 5th MC base fracture. Zulema Mackay CREDIT MANAGER Assessment/Plan Encounter Diagnoses: ICD-10-CM 1. Left hand [...] of the left hand documented in this encounterWilliam [place]ille [id number] History of Present illness Narrative* Zulema Smith Thompson, TREE PLANTER - 07/10/2024 12:15 PM EDT Images from the original note were not included. Subjective Patient ID: Emigdio Apodaca is a 58 y.o. female. RT Knee CT RT knee [facility] 07/05/24 3 weeks ago, Pt had tripped over a sidewalk and Fell landing on her left hand and right knee. DOI 06/19/24, she then hit her chest and rolled over onto her left shoulder hitting her shoulder. She was able to walk afterwards, was taken to [facility] ER on 06/19/24 by her partner [...] was dx with 6 months ago. [place]: XR/06/19/24/[facility] LT hand, RT knee, LT shoulder, [facility] ER 06/19/24, norco, IBU, XR NOMS [...] ct of the right knee done at [facility] on 07/05/24 reveals a non displaced [...] or polycentric), positional orthosis, rigid support, prefabricated, zom-xfo-reidw knee brace. Brace is locked at 0 [...] wbat in the brace documented in this encounterNevada Regional Medical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
[2025-07-21] MEDS: CETIRIZINE HCL 10 MG TABLET PO (08:12)
[2025-07-21] MEDS: DOXYCYCLINE MONOHYDRATE 100 MG CAPSULE PO (08:12)
[2025-07-21] MEDS: CITALOPRAM HYDROBROMIDE 20 MG TABLET PO (08:12)
[2025-07-21] MEDS: ACETAMINOPHEN 325 MG TABLET 650 MG PO ×2 (08:12→22:43)
[2025-07-21] MEDS: PANTOPRAZOLE SODIUM 40 MG TABLET.DR PO (08:12)
[2025-07-21] MEDS: METHYLPREDNISOLONE SOD SUCC PF 40 MG/ML VIAL IVP ×2 (08:12→16:27)
[2025-07-21] MEDS: ENOXAPARIN SODIUM 40 MG/0.4 ML SYRINGE SUBQ (08:12)
[2025-07-21] MEDS: BUPROPION HCL 150 MG XL TABLET 24H 300 MG PO (08:12)
[2025-07-21] MEDS: GUAIFENESIN 200 MG/DEXTROMETHORPHAN 20 MG 10 ML UNIT DOSE CUP PO (08:13)
[2025-07-21] MEDS: ONDANSETRON 4 MG RAPDIS TABLET PO (09:14)
--- NOTE | 2025-07-21 10:10 | CM.NOTE ---
Rounds made with Dr. Solares, discussed with pt plan of care. Pt is inpatient status, pt at this time is requiring oxygen. Continue treatment as ordered.
[2025-07-21] MEDS: BENZONATATE 100 MG CAPSULE PO ×2 (11:57→22:43)
[2025-07-21] MEDS: 0.9 % SODIUM CHLORIDE 250 ML 10 ML IV (12:00)
[2025-07-21] MEDS: AZITHROMYCIN 500 MG in 0.9 % SODIUM CHLORIDE 250 ML 250 MG IV (12:00)
--- NOTE | 2025-07-21 12:07 | PM.HP ---
HPI H&P: HPI History of Present Illness Chief complaint: COPD EXACERBATION Narrative: This is 59-year-old female with past medical of COPD/emphysema, GERD, dyslipidemia, hypothyroidism, not on home oxygen, pacemaker in place as per the chest x-ray read, pulmonary hypertension, moderate plating calorie malnutrition, depression, and lysed weakness, with previous frequent hospitalizations at our facility, was accepted by colleague as an admission overnight. I am seeing her for the first time today. Patient came to the ED yesterday with 5 days history of shortness of breath and not able to do anything because of that, she also has cough which was productive of green sputum along with diarrhea for the last few days. Did not have any relieving or aggravating factors of the symptoms. He is not exposed to any sick contacts. Patient does not smoke and has never smoked that she mentions to me. Labs in the ED were unremarkable including CBC and CMP. Chest x-ray was negative for acute pathology. Patient received breathing treatment the ED and steroids. Patient to be admitted under hospitalist service for further workup and management. Opioid HPI Opioid Management Most Recent Pain and Opioid Data: Last Pain Scale 0 Today, 09:15 Last Pain Intensity 2 11/26/24, 07:21 Last Pain Assessment Today, 01:00 Last MAR Pain Assessment Today, 08:12 Last ORT Total Score 3 Today, 00:40 Last ORT Risk Category Low Risk Today, 00:40 Ur Phencyclidine Scrn, (NEGATIVE) Negative 12/01/24, 19:15 Review of Systems ROS Status of ROS 10 or more systems reviewed and unremarkable except as noted in history and below [facility] Medical History (Updated 07/21/25 @ 12:14 by Chetan Solares MD) Asthma ?J45.909 - Unspecified asthma, uncomplicated (ICD-10) Hypoxia ?R09.02 - Hypoxemia (ICD-10) Acute bronchitis ?J20.9 - Acute bronchitis, unspecified (ICD-10) Acute exacerbation of chronic obstructive pulmonary disease (COPD) ?J44.1 - Chronic obstructive pulmonary disease with (acute) exacerbation (ICD-10) Hypoxemia ?R09.02 - Hypoxemia (ICD-10) ESE (acute kidney injury) ?N17.9 - Acute kidney failure, unspecified (ICD-10) Flu ?J11.1 - Influenza due to unidentified influenza virus with other respiratory manifestations (ICD-10) GERD (gastroesophageal reflux disease) ?K21.9 - Gastro-esophageal reflux disease without esophagitis (ICD-10) Hypercholesterolemia ?E78.00 - Pure hypercholesterolemia, unspecified (ICD-10) Acute respiratory failure with hypoxia ?J96.01 - Acute respiratory failure with hypoxia (ICD-10) Respiratory distress ?R06.03 - Acute respiratory distress (ICD-10) Neutropenia ?D70.9 - Neutropenia, unspecified (ICD-10) Hypotension due to hypovolemia ?E86.1 - Hypovolemia (ICD-10) Gastroenteritis due to COVID-19 virus ?U07.1 - COVID-19 (ICD-10) ?A08.39 - Other viral enteritis (ICD-10) Dehydration ?E86.0 - Dehydration (ICD-10) ESE (acute kidney injury) ?N17.9 - Acute kidney failure, unspecified (ICD-10) Gastroenteritis ?K52.9 - Noninfective gastroenteritis and colitis, unspecified (ICD-10) COVID ?U07.1 - COVID-19 (ICD-10) COVID-19 ?U07.1 - COVID-19 (ICD-10) Effusion of knee joint right ?M25.461 - Effusion, right knee (ICD-10) Contusion of hand, left ?S60.222A - Contusion of left hand, initial encounter (ICD-10) Chest pain ?R07.9 - Chest pain, unspecified (ICD-10) Hypothyroid ?E03.9 - Hypothyroidism, unspecified (ICD-10) Esophagitis ?K20.90 - Esophagitis, unspecified without bleeding (ICD-10) Pancolitis ?K51.00 - Ulcerative (chronic) pancolitis without complications (ICD-10) Pulmonary hypertension ?I27.20 - Pulmonary hypertension, unspecified (ICD-10) Cholecystitis ?K81.9 - Cholecystitis, unspecified (ICD-10) Depression ?F32.A - Depression, unspecified (ICD-10) On home O2 ?Z99.81 - Dependence on supplemental oxygen (ICD-10) Hyperthyroidism ?E05.90 - Thyrotoxicosis, unspecified without thyrotoxic crisis or storm (ICD-10) Scoliosis ?M41.9 - Scoliosis, unspecified (ICD-10) Emphysema lung ?J43.9 - Emphysema, unspecified (ICD-10) Nausea & vomiting ?R11.2 - Nausea with vomiting, unspecified (ICD-10) Pacemaker ?Z95.0 - Presence of cardiac pacemaker (ICD-10) COPD (chronic obstructive pulmonary disease) ?J44.9 - Chronic obstructive pulmonary disease, unspecified (ICD-10) Surgical History History of tonsillectomy ?Z90.89 - Acquired absence of other organs (ICD-10) H/O right wrist surgery ?Z98.890 - Other specified postprocedural states (ICD-10) H/O colectomy ?Z90.49 - Acquired absence of other specified parts of digestive tract (ICD-10) Family History Mother Family history of COPD (chronic obstructive pulmonary disease) Grandmother Family history of cancer Sister Family history of diabetes mellitus Father Family history of myocardial infarction Social History Within the past year, how often did you have a drink containing alcohol: never Within the past year, how often did you have six or more drinks on one occasion: never Score interpretation: A score less than 3 is consistent with normal alcohol consumption. 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 Known occupational exposures/hazards: No Highest level of school completed/degree received: 10th grade Do you want help with school or training: No Are you now , , , , never or living with a partner: In a typical week, how many times do you talk on the telephone with family, friends, or neighbors: 3 or more times per week How often do you get together with friends or relatives: 3 or more times per week How often do you attend advent or yarsanism services: 4 or more times per year Do you belong to any clubs or organizations such as advent groups unions, fraternal or athletic groups, or school groups: yes Total score: 3 Score interpretation: A score of greater than or equal to 2 indicates the lowest level of social isolation. Little interest or pleasure in doing things: not at all Feeling down, depressed, or hopeless: not at all Feel stressed/tense/nervous/anxious/difficulty sleeping: to some extent Life stressors: unknown source of stress Due to disability, difficulty making decisions: No Do you think of yourself as: bisexual Gender Identity: female Meds Home Medications and Allergies Home Medications ?Medication ?Instructions ?Recorded ?Confirmed ?Type bupropion HCl 300 mg 24 hr tablet, 300 mg PO DAILY 09/25/23 07/20/25 History extended release cholecalciferol (vitamin D3) 50 50 mcg PO DAILY 09/25/23 07/20/25 History mcg (2,000 unit) capsule citalopram 20 mg tablet 20 mg PO DAILY 09/25/23 07/20/25 History lamotrigine 25 mg tablet 50 mg PO BEDTIME 09/25/23 07/20/25 History lansoprazole 30 mg capsule,delayed 30 mg PO DAILY 09/25/23 07/20/25 History release levothyroxine 125 mcg tablet 125 mcg PO DAILY 09/25/23 07/20/25 History simvastatin 20 mg tablet 20 mg PO QPM 09/25/23 07/20/25 History docusate sodium 100 mg capsule 100 mg PO DAILY PRN constipation 12/22/23 07/20/25 History ([facility]) loratadine 10 mg tablet (Allergy 10 mg PO DAILY 12/22/23 07/20/25 History Relief (loratadine)) alendronate 70 mg tablet 70 mg PO QWEEK 11/25/24 07/21/25 History albuterol sulfate 2.5 mg/3 mL 2.5 mg inhalation QID shortness of 02/19/25 07/21/25 History (0.083 %) solution for nebulization breath or wheezing albuterol sulfate 90 mcg/actuation 2 inh inhalation Q6H PRN shortness 02/22/25 07/20/25 Rx aerosol inhaler (Ventolin HFA) of breath or wheezing #8.5 grams meclizine 25 mg tablet 25 mg PO QID PRN dizziness #30 tabs 02/22/25 07/20/25 Rx benzonatate 100 mg capsule 100 mg PO Q6H PRN cough #14 caps 07/14/25 07/20/25 Rx budesonide-formoterol HFA 80 2 inh inhalation Q12H 07/20/25 07/20/25 History mcg-4.5 mcg/actuation aerosol inhaler (Symbicort) Allergies Allergy/AdvReac Type Severity Reaction Status Date / Time codeine Allergy Mild Vomiting Verified 07/20/25 22:23 oxycodone (From Percocet) Allergy Mild Vomiting Verified 07/20/25 22:23 promethazine Allergy Mild Agitated Verified 07/20/25 22:23 Sulfa (Sulfonamide Allergy Mild Vomiting Verified 07/20/25 22:23 Antibiotics) hydromorphone (From Dilaudid) AdvReac Mild Rash Verified 07/20/25 22:23 prochlorperazine (From AdvReac Mild Unknown Verified 07/20/25 22:23 Compazine) Exam Narrative Exam Narrative: General Appearance: Patient is frail cachectic with moderate malnutrition and disheveled. She is in mild respiratory distress but able to speak in full sentence and having cough during my encounter. HENMT Common normals: normocephalic and head/scalp atraumatic Eye Common normals: PERRL, EOMs intact bilaterally, conjunctivae normal and no scleral icterus Respiratory Effort & inspection: Does have bilateral wheezes with some rhonchi with decreased air entry. She is not able to speak in full sentences I would say she is in mild to moderate respiratory distress. She does have this severe cough while I am talking to her Cardio Common normals: regular rate, regular rhythm, S1 normal heart sound and S2 normal heart sound GI Common normals: Normal to inspection, nondistended, normoactive bowel sounds present, soft to palpation and non-tender Extremity Common normals: normal to inspection and full ROM Neuro Common normals: oriented x3, CN's II-XII intact bilaterally, moves all extremities and no focal motor deficits Constitutional Vital Signs, click to edit/add: Last Vital Signs Temp 97.8 F 07/21/25 12:00 Pulse 78 07/21/25 12:00 Resp 20 07/21/25 12:00 BP 113/58 07/21/25 12:00 Pulse Ox 93 L 07/21/25 12:00 O2 Del Method Nasal Cannula 07/21/25 12:00 O2 Flow Rate 3 07/21/25 12:00 Results Labs Labs: Short CBC 07/20/25 Range/Units 22:35 WBC 8.6 (4.0-11.0) 10^3/uL Hgb 13.7 (12.0-16.0) g/dL Hct 42.2 (36.0-48.0) % Plt Count 283 (150-450) 10^3/uL BMP 07/20/25 22:35 Sodium 140 Potassium 3.8 Chloride 102 Carbon Dioxide 28.4 BUN 17.0 Creatinine 0.95 Glucose 112 H Calcium 8.8 Assessment and Plan Assessment and Plan (1) Acute hypoxic respiratory failure: (2) Acute exacerbation of chronic obstructive pulmonary disease (COPD): Plan Acute hypoxic respiratory failure (documented 70% saturation on 2 L nasal currently being) in the setting of acute COPD/emphysema exacerbation Frailty and question of compliance Pulmonary cachexia? - Admit patient to medical floor telemetry - I changed the methylprednisolone to 4 mg every 8 hours daily every 12 hours - I added Tessalon to Robitussin for cough - I can switch her doxycycline to azithromycin IV 5 mg IV daily given the change in her cough and the severity of her COPD for anti-inflammatory effect - Continue with DuoNebs 4 times daily, I will add Symbicort to her regimen while in the hospital - I will add Vapotherm to help with her work of breathing -Continuing with Lovenox 40 mg subcutaneously for DVT PPx -IV pantoprazole for GI PPx -Discussed the plan with the pt in details. Answered her questions -Pt may benefit from oxygen test on discharge
[2025-07-21 13:05] LABS: SARS-CoV-2 Ag NEGATIVE (NEGATIVE)
--- NOTE | 2025-07-21 15:24 | SWNOTE1 ---
SW consulted for Advanced Directives. SW stopped in and spoke with pt. Pt lives at home with her sons. Pt does not wear home oxygen, but is on it here at hospital. SW provided pt with an Advanced Directive booklet. She would like to look it over with her mother tomorrow morning and have SW stop back in tomorrow. SW did show patient that Health Care Power of Help Desk Operator section and Living Will section. Pt will review and SW to stop in tomorrow morning.
[2025-07-21] MEDS: ALBUTEROL SULFATE 2.5 MG/3 ML VIAL NEB IH ×2 (16:01→20:05)
[2025-07-21] MEDS: BUDESONIDE 0.5 MG/2 ML AMPULE NEB IH (20:18)
[2025-07-21] MEDS: LAMOTRIGINE 25 MG TABLET 50 MG PO (22:43)
[2025-07-21] MEDS: ATORVASTATIN CALCIUM 10 MG TABLET PO (22:43)
[2025-07-22] VITALS (19 sets, daily range): BP systolic 100–120; BP diastolic 53–70; PULSE 46–102; TEMP 36.5–37; O2SAT 94–97
[2025-07-22] MEDS: METHYLPREDNISOLONE SOD SUCC PF 40 MG/ML VIAL IVP ×4 (00:40→23:44)
[2025-07-22] MEDS: ALBUTEROL SULFATE 2.5 MG/3 ML VIAL NEB IH ×4 (05:15→20:50)
[2025-07-22 06:01] LABS: Hematocrit 38.1 % (36.0-48.0); Hemoglobin 12.2 g/dL (12.0-16.0); Immature Granulocytes Abs Auto 0.01 10^3/uL (0.00-0.03); Immature Granulocytes Pct Auto 0.2 % (0.0-0.5); Lymphocytes Absolute Auto 0.7 10^3/uL (1.2-3.8); Mean Corpuscular HGB Conc 32.0 g/dL (29.9-35.2); Mean Corpuscular Hemoglobin 27.6 pg (26.7-34.0); Mean Corpuscular Volume 86.2 fL (81.0-99.0); Platelet Count 228 10^3/uL (150-450); Red Blood Count 4.42 10^6/uL (4.20-5.40); White Blood Count 5.9 10^3/uL (4.0-11.0)
[2025-07-22 06:06] LABS: Anion Gap 11.1; Blood Urea Nitrogen 18.0 mg/dL (7.0-18.0); Calcium 8.7 mg/dL (8.5-10.1); Carbon Dioxide 28.0 mmol/L (21.0-32.0); Chloride 106 mmol/L (98-107); Estimated GFR (African America >60 (>=60 mL/min/1.73m^2); Estimated GFR (Non-African Ame >60 (>=60 mL/min/1.73m^2); Glucose 159 mg/dL (74-106); Magnesium 2.3 mg/dL (1.8-2.4); Potassium 4.1 mmol/L (3.5-5.1); Sodium 141 mmol/L (136-145)
[2025-07-22 06:07] LABS: Alanine Aminotransferase 23 U/L (14-59); Albumin Globulin Ratio 0.8; Albumin Level 3.0 g/dL (3.4-5.0); Alkaline Phosphatase 105 U/L (46-116); Aspartate Amino Transferase 10 U/L (15-37); Globulin 3.7 g/dL; Total Protein 6.7 g/dL (6.4-8.2)
[2025-07-22] MEDS: LEVOTHYROXINE SODIUM 125 MCG TABLET PO (06:14)
[2025-07-22] MEDS: CITALOPRAM HYDROBROMIDE 20 MG TABLET PO (09:32)
[2025-07-22] MEDS: PANTOPRAZOLE SODIUM 40 MG TABLET.DR PO (09:32)
[2025-07-22] MEDS: CETIRIZINE HCL 10 MG TABLET PO (09:32)
[2025-07-22] MEDS: BUPROPION HCL 150 MG XL TABLET 24H 300 MG PO (09:32)
[2025-07-22] MEDS: ENOXAPARIN SODIUM 40 MG/0.4 ML SYRINGE SUBQ (09:33)
--- NOTE | 2025-07-22 09:52 | SWNOTE1 ---
SW stopped back in room to complete HCPOA and Living Will with pt, but she would like to wait for her mother to arrive to complete. SW to check back later.
--- NOTE | 2025-07-22 10:20 | CM.NOTE ---
Rounds made with Dr. Solares, pt continues with harsh cough and SOB with minimal exertion. Dr. Solares will add medication for cough. Discussed plan of care with pt, no discharge today. Pt is up ad jean paul in room.
--- NOTE | 2025-07-22 10:39 | XR_ITS ---
The [address] [address] Patient Name: EMIGDIO ELI MRN: [id number] date: 1965 Sex: F Assigned Patient Location: MS Current Patient Location: Accession/Order Number: [id number] Exam Date: 07/22/2025 11:05 Report Date: 07/22/2025 11:09 At the request of: SILVIA SWENSON MD Procedure: XR chest 1V XR chest 1V 07/22/2025 10:40 AM SIGNS AND SYMPTOMS: ^Follow up PROTOCOL: Frontal radiograph of the chest COMPARISON: 07/20/2025 FINDINGS: The trachea is midline. There is a dual lead pacer device on the left which is unchanged. The heart and mediastinal structures are within normal limits. Similar linear scarring is noted in the right perihilar region extending towards the right lateral chest wall. The lung parenchyma is clear, otherwise. The bony thorax is intact. XR/XR chest 1V IMPRESSION: No acute cardiopulmonary pathology. Additional chronic findings are redemonstrated as above. Impression dictated by: Edmond Canada M.D. 07/22/2025 11:09 AM Dictation Location: [facility] Electronically authenticated by: [id number] Y Date: 07/22/2025 11:09
--- NOTE | 2025-07-22 12:15 | PM.PN ---
Progress Note: Subjective Subjective Interval history: Patient seen and examined at bedside. Patient continues with cough states that she only feels a little better today. No fever no chills. Labs were unremarkable. She continues to be on IV steroids and IV azithromycin. Labs were unremarkable today. Does have some bandemia which I think due to steroids. Chest x-ray from today does not show any acute worsening. She is saturating 95% on 2 L nasal cannula. Exam Narrative Exam Narrative: General Appearance: Patient is frail cachectic with moderate malnutrition and disheveled. Continues with cough that is severe and harsh. She is able to speak in full sentence and having cough during my encounter. HENAR Common normals: normocephalic and head/scalp atraumatic Eye Common normals: PERRL, EOMs intact bilaterally, conjunctivae normal and no scleral icterus Respiratory Effort & inspection: Does have bilateral wheezes with some rhonchi with decreased air entry. Does have cough which is dry and sometimes productive. States that her breathing is a little better than yesterday. Does have still tachypnea with work of breathing especially when she tries to exert herself. Cardio Common normals: regular rate, regular rhythm, S1 normal heart sound and S2 normal heart sound GI Common normals: Normal to inspection, nondistended, normoactive bowel sounds present, soft to palpation and non-tender Extremity Common normals: normal to inspection and full ROM Neuro Common normals: oriented x3, CN's II-XII intact bilaterally, moves all extremities and no focal motor deficits Constitutional Vital Signs, click to edit/add: Last Vital Signs Temp 98.0 F 07/22/25 06:39 Pulse 81 07/22/25 11:41 Resp 20 07/22/25 11:02 BP 118/66 07/22/25 06:39 Pulse Ox 95 07/22/25 11:02 O2 Del Method Nasal Cannula 07/22/25 11:02 O2 Flow Rate 2 07/22/25 11:02 Progress Note: Objective Labs Labs: Short CBC 07/22/25 Range/Units 05:11 WBC 5.9 (4.0-11.0) 10^3/uL Hgb 12.2 (12.0-16.0) g/dL Hct 38.1 (36.0-48.0) % Plt Count 228 (150-450) 10^3/uL BMP 07/22/25 05:11 Sodium 141 Potassium 4.1 Chloride 106 Carbon Dioxide 28.0 BUN 18.0 Creatinine 0.81 Glucose 159 H Calcium 8.7 Liver Function 07/22/25 Range/Units 05:11 Total Bilirubin 0.1 L (0.2-1.0) mg/dL AST 10 L (15-37) U/L ALT 23 (14-59) U/L Alkaline Phosphatase 105 (46-116) U/L Albumin 3.0 L (3.4-5.0) g/dL Progress Note: A&P Assessment and Plan (1) Acute hypoxic respiratory failure: (2) Acute exacerbation of chronic obstructive pulmonary disease (COPD): Plan Acute hypoxic respiratory failure (documented 70% saturation on 2 L nasal currently being) in the setting of acute COPD/emphysema exacerbation Frailty and question of compliance Pulmonary cachexia? - Admit patient to medical floor telemetry - I changed the methylprednisolone to 4 mg every 8 hours daily every 12 hours - I added Tessalon to Robitussin for cough - I can switch her doxycycline to azithromycin IV 5 mg IV daily given the change in her cough and the severity of her COPD for anti-inflammatory effect - Continue with DuoNebs 4 times daily, I will add Symbicort to her regimen while in the hospital - I will add Vapotherm to help with her work of breathing -Continuing with Lovenox 40 mg subcutaneously for DVT PPx -IV pantoprazole for GI PPx -Discussed the plan with the pt in details. Answered her questions -Pt may benefit from oxygen test on discharge 07/22/2025 patient continues to have this severe cough, I added Tessalon and made schedule set of as needed as well as promethazine to her cough Robitussin. Will add IV ceftriaxone 1 g every 24 hours to her IV azithromycin that has already been started yesterday. Will continue with DuoNeb as well as Symbicort and IV methylprednisolone. I asked respiratory therapy to help me with placing the patient on vest therapy as well as on hypertonic nebulized saline. Discussed plan with the patient and I told her that this will need some time to improve given her very severe COPD presentation. She understands agrees with this plan management. She is not in any impending respiratory failure and is saturating well on 2 L nasal cannula so we will continue with that for now. Discussed the case with the nursing team as well.
[2025-07-22] MEDS: AZITHROMYCIN 500 MG in 0.9 % SODIUM CHLORIDE 250 ML 250 MG IV (12:32)
--- NOTE | 2025-07-22 12:35 | SWNOTE1 ---
SW completed HCPOA and Living Will with pt. SW made copy for pt and chart and gave pt back the original booklet.
[2025-07-22] MEDS: BENZONATATE 100 MG CAPSULE PO (12:38)
--- OUTSIDE RECORDS SUMMARY | 2025-07-22 14:21 | XMS_ITS | Clinical Summary ---
Author Organization [facility] Address [address] [place] [id number] Care Team Providers Care Shear Grinder Operator Helper Name Role Phone Paulo Turner MD Unavailable [phone] Paulo Turner MD Primary Care Provider [phone] Allergies Active AllergyReactionsCriticalityNoted DateCommentsProchlorperazineOther: See Tzsmoofc91/09/2015Sulfa (Sulfonamide Antibiotics)Other: See Zpbdbkqo46/09/2015 Medications MedicationSigDispense QuantityRefillsLast FilledStart DateEnd DateStatus albuterol HFA (PROVENTIL HFA, VENTOLIN HFA) 90 mcg/actuation inhaler Inhale 1 Puff as instructed as needed for wheezing/shortness of breath.Active buPROPion XL (WELLBUTRIN XL) 300 mg 24 hr tablet Take 300 mg by mouth once daily.Active calcium carbonate (CALTRATE) 600 mg calcium (1,500 mg) tab Take 1 tablet by mouth once daily.Active Cholecalciferol, Vitamin D3, 50 mcg (2,000 unit) cap Take 1 capsule by mouth once daily.Active citalopram (CELEXA) 20 mg tablet Take 20 mg by mouth once daily.Active docusate sodium (COLACE) 100 mg capsule Take 100 mg by mouth once daily.Active escitalopram oxalate (LEXAPRO) 10 mg tablet Take 10 mg by mouth once daily.Active lamoTRIgine dispersible/chewable (LAMICTAL) 25 mg chewable tablet Take 25 mg by mouth once daily.Active lansoprazole (PREVACID) 30 mg capsule Take 30 mg by mouth once daily.Active levothyroxine (SYNTHROID) 125 mcg tablet Take 125 mcg by mouth once daily.Active loratadine (CLARITIN) 10 mg tablet Take 10 mg by mouth once daily.02/27/2023ctive simvastatin (ZOCOR) 20 mg tablet Take 20 mg by mouth daily at bedtime.02/27/2023ctive Active Problems ProblemNoted DateDiagnosed DateTransient neurological jmmyekqg35/12/2024 Social History Tobacco UseTypesPacks/DayYears UsedDateSmoking Tobacco: Never Assessed Tobacco Cessation:Counseling Given: No Area Deprivation IndexAnswerDate RecordedNational Score (1-100), lower number is lower wojz934203/06/2024State Score (1-10), lower number is lower dgjn31503/06/2024 Data from: https://www.neighborhoodatlas.[facility].edu/. Last address used for [address]/06/2024CommentsUnknownSex and Gender InformationValueDate RecordedSex Assigned at BirthNot on fileLegal SexFemale 08/16/2022 4:29 PM ESTGender IdentityNot on fileSexual OrientationNot on file Last Filed Vital Signs Vital SignReadingTime TakenCommentsBlood Yeugghwq202/7709 12:13 PM EDT Qumkz436306/13/2024 12:13 PM SRVIxfkqttognr22.2 ??C (97.2 ??F)03/06/2024 1:46 PM EDTRespiratory Rate--Oxygen Saturation--Inhaled Oxygen Concentration--Cawzjg31.3 kg (102 lb 2.9 oz)06/13/2024 12:13 PM NOWNmpdfl737.3 cm (4' 11.96 )06/13/2024 12:13 PM EDTBody Mass Index19.9809 12:13 PM EDT Plan of Treatment Health MaintenanceDue DateLast DoneCommentsAnxiety Fhmmuhmfp94/19/1982Depression Uumfjudhj94/19/1982HIV Patjuwtdk13/19/1982Hepatitis C Rjjjndflt86/19/1982 DTaP,Tdap,Td Vaccine (1 - Tdap)1983Cervical Cancer Scriphjmp42/19/1985 Mammogram Yhiouhfpz05/19/2004CT Lzinssvleztr56/19/2009Cologuard (FIT-DNA) 08/20/20097077Cpppiuzewhl40/19/2009Colorectal Cancer Wtcqlqrbr83/19/2009Fecal Occult Blood2009Lipid Wbqoftjjv35/19/8809Ebzfcfscqcyfh72/19/2009Pneumococcal Vaccine: 50+ (1 of 1 - PCV)2014Shingrix Vaccine (1 of 2)2014Covid-19 Vaccine (1 - 2024- season)2025Influenza Vaccine (#1)2025Diabetes Tlwcbpncj55/, 01/03/2024, 01/02/2024, Additional history exists RSV Vaccine (1 - 1-dose 75+ series)2039 Insurance Care Teams Team MemberRelationshipSpecialtyStart DateEnd Date Paulo Turner MD [address] [place] [address] PCP - Generalmily Medicine06/13/24 Paulo Turner MD [address] [place] [address] ReferringFamily Medicine02/09/24
--- OUTSIDE RECORDS SUMMARY | 2025-07-22 14:21 | XMS_ITS | Clinical Summary ---
Author Organization [employer] [facility] [employer] Address [id number] [address] [place] [address] Care Team Providers Care Leasing Specialist Name Role Phone Paulo Turner MD Primary Care Provider [phone] Social History Tobacco UseTypesPacks/DayYears UsedDateSmoking Tobacco: Never AssessedChildcare AnswerDate WomlquwfGfhkgcxjqWflgiky96/12/2019EmploymentAnswerDate Recorded XefykxpvipIfzbrob48/12/2019Purpose - LifeAnswerDate RecordedPurpose and direction in hovbAyocrhy97/11/2021CommentsUnknownSex and Gender InformationValueDate RecordedSex Assigned at BirthNot on fileLegal SexFemale 05/07/2015 11:22 AM EDTGender IdentityNot on fileSexual OrientationNot on file Plan of Treatment Health MaintenanceDue DateLast DoneCommentsDepression Fbxsvthsv57/19/1976Tobacco Itprmivsw05/19/1976Adult BMI Tpttbflhn07/19/1982DTaP,Tdap and Td Vaccines (1 - Tdap)1983Pap Smear1985Zoster (Shingles) Vaccine (1 of 2)2014 Influenza Euthyts0006/02/2025 Medical Devices Not on file Insurance Care Teams Team MemberRelationshipSpecialtyStart DateEnd Paulo Turner [facility] - [facility] Gofuvmwr86/4/19
--- OUTSIDE RECORDS SUMMARY | 2025-07-22 14:21 | XMS_ITS | Patient Health Record ---
Author Organization [facility] es Address [address] [place] [address] Care Team Providers Care Political Cartoonist Name Role Phone Mita Nunez Primary Care Provider Kaley Bruce Unavailable [phone] Lila Kely Unavailable [phone] Reason For Referral No Information Encounters Encounter Location Date Provider Diagnosis [facility] [address] [place] [address] 06/10/2025 Kely Yi Cracked tooth K03.81 ; Complete loss of teeth, unspecified cause, class I K08.101 ; Encounter for dental examination and cleaning with abnormal findings Z01.21 ; Other dental procedure status Z98.818 and Disturbances in tooth eruption K00.6 Assessments Encounter Date Diagnosis (ICD Code) Assessment Notes Treatment Notes Treatment Clinical Notes Section Notes 06/10/2025 Cracked tooth (ICD-10 - K03.81) 06/10/2025omplete loss of teeth, unspecified cause, class I (ICD-10 - K08.101) 06/10/2025Encounter for dental examination and cleaning with abnormal findings (ICD-10 - Z01.21)06/10/2025Other dental procedure status (ICD-10 - Z98.818) 06/10/2025Disturbances in tooth eruption (ICD-10 - K00.6) Plan Of Treatment Next Appt Details Provider Name:Hattie Bond, 10/01/2025 09:50:00 AM, [address] [place], [address], Insurance Providers Payer Name Payer Address Payer Phone Subscriber Number Group Number Insured Name Patient Relationship to Insured Coverage Start Date Coverage End Date [employer] [address] [address] [place] [address] [id number] Nona ELI - patient is the [id number] 2024[employer] [place] [place] [id number], TAMELASelf - patient is the [id number] 2024
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
--- OUTSIDE RECORDS SUMMARY | 2025-07-22 14:23 | XMS_ITS | Patient Health Record ---
Author Organization [facility] in [place] Address [address] [place] [address] Care Team Providers Care Molding Technician Name Role Phone [place] Turner Primary Care Provider [phone] Thomas Izquierdo Unavailable [phone] Allergies Allergen (clinical drug ingredient) Drug/Non Drug Allergy documented on EMR Reaction Allergy Type Onset Date Status promethazine Phenergan Unknown Drug Allergy ActiveCompazineUnknownDrug AllergyActiveSubstance with sulfonamide structure and antibacterial mechanism of action (substance)Sulfa AntibioticsUnknownDrug AllergyActivemorphineMorphineUnknownDrug AllergyActive Results Component Value Reference Range Notes INFLUENZA A AND B AG Reviewed date:11/25/2024 01:56:15 PM Interpretation: Performing Lab: Notes/Report: [facility] , Influenza Virus A Antigen Positive NOTE: Live attenuated influenza vaccine viruses can cause a positive result for a rapid influenza diagnostic test if administered up to 7 days prior to rapid testing. Influenza Virus B AntigenNegative Negative for Flu B protein antigen. Infection due to Flu B cannot be ruled out. Flu B antigen in the sample may be below the detection limit of the test. Performing Lab:see noteML - [facility] LBLACTATE or LACTIC ACID Reviewed date:11/25/2024 08:17:49 PM Interpretation: Performing Lab: Notes/Report: [facility] ,Lactate/Lactic Acid1.30.4-2.0 mmol/LPerforming Lab:see noteML - [facility] LBMAGNESIUM Reviewed date:11/25/2024 08:17:49 PM Interpretation: Performing Lab: Notes/Report: [facility] ,Magnesium2.11.8-2.4 mg/dLPerforming Lab:see noteML - [facility] LB PROF 14(COMP METB) Reviewed date:11/25/2024 01:56:15 PM Interpretation: Performing Lab: Notes/Report: [facility] ,Htsdxx038517-912 mmol/LPotassium3.83.5-5.1 mmol/LFdfhdxgi5005-277 mmol/LCarbon Kwefcau97.221.0-32.0 mmol/LAnion Gap14.3Mzbrfrr65267-511 mg/dLBlood Urea Duamvxpt98.07.0-18.0 mg/dLCreatinine1.400.55-1.02 mg/dLEstimated GFR ( Tbpfpoc96>=60 mL/min/1.73m 2Estimated GFR (Non- Ame38>=60 mL/min/1.73m 2 BUN Creatinine Ratio13.2Awxgngg4.08.5-10.1 mg/dLBilirubin Total0.40.2-1.0 mg/dL Aspartate Amino Dwesumlkqyh43605-58 U/LAlanine Brckzszyaokowver5982-52 U/L Alkaline Pphkdmhsimx32811-763 U/LTotal Protein7.06.4-8.2 g/dLAlbumin Level3.5 3.4-5.0 g/dLGlobulin3.5Albumin Globulin Ratio1.0Performing Lab:see noteML - [facility] LBProthrombin Time INR Reviewed date:11/25/2024 01:56:15 PM Interpretation: Performing Lab: Notes/Report: [facility] ,Prothrombin Time11.89.0-11.6 secINR1.13 DESIRED INR: 2.0-3.0 CONDITIONS NOT LISTED BELOW 2.5-3.5 FOR PROSTHETIC HEART VALVE REPLACEMENT 2.5-3.5 RECURRENT THROMBOSIS Performing Lab:see noteML - [facility] VHMOUB-KiZ-3 Ag* Reviewed date:11/25/2024 01:56:15 PM Interpretation: Performing Lab: Notes/Report: [facility] ,SARS-CoV-2 AgNEGATIVENEGATIVE This test has not been FDA cleared [...] terminated or authorization is revoked sooner. Performing Lab:see noteML - [facility] LBC. Difficile PCR Reviewed date:11/26/2024 01:37:16 PM Interpretation: Performing Lab: Notes/Report: [facility] ,C. Difficile PCRNEGATIVEPerforming Lab:see note - [facility] LBE coli Shiga Toxin EIA Reviewed date:11/28/2024 07:50:06 PM Interpretation: Performing Lab: Notes/Report: [facility] ,E coli Shiga Toxin EIASee Below For Report E coli Shiga Toxin EIA E coli Shiga Toxin EIANegative E coli Shiga Toxin EIA E coli Shiga Toxin EIAPerformed at: [facility] E coli Shiga Toxin EIA E coli Shiga Toxin [id number] [place], [place] [id number] E coli Shiga Toxin EIA E coli Shiga Toxin EIALab Director: Stevie Chapa PhD, Phone: [phone] E coli Shiga Toxin EIA Performing Lab:see note LC - [facility] LB SEE REPORT - Personnel Training Officer Id information not found for OBX-specific generating plant superintendent legend Salmonella/Shigella Screen Reviewed date:12/01/2024 12:42:02 PM Interpretation: Performing Lab: Notes/Report: [facility] ,Salmonella/Shigella ScreenSee Below For Report Salmonella/Shigella Screen Salmonella/Shigella ScreenSpecimen has been received and testing has been initiated. Salmonella/Shigella Screen Salmonella/Shigella Screen Salmonella/Shigella Screen Salmonella/Shigella ScreenNo Salmonella or Shigella recovered. Salmonella/Shigella Screen Performing Lab:see noteLC - [facility] LBCampylobacter Culture Reviewed date:12/01/2024 12:42:02 PM Interpretation: Performing Lab: Notes/Report: [facility] ,Campylobacter CultureSee Below For Report Campylobacter Culture No Campylobacter species isolated. Performing Lab:see noteLC - [facility] LBOccult Blood* Reviewed date:11/26/2024 01:37:16 PM Interpretation: Performing Lab: Notes/Report: [facility] ,Occult BloodNegativePerforming Lab:see noteML - [facility] LBE coli Shiga Toxin EIA Reviewed date:12/01/2024 12:42:02 PM Interpretation: Performing Lab: Notes/Report: [facility] ,E coli Shiga Toxin EIASee Below For Report E coli Shiga Toxin EIA E coli Shiga Toxin EIANegative E coli Shiga Toxin EIA E coli Shiga Toxin EIAPerformed at: - [facility] E coli Shiga Toxin EIA E coli Shiga Toxin [id number] [place], [place] [id number] E coli Shiga Toxin EIA E coli Shiga Toxin EIALab Director: Stevie Chapa PhD, Phone: [phone] E coli Shiga Toxin EIA Performing Lab:see note LC - [facility] LB SEE REPORT - Personnel Training Officer Id information not found for OBX-specific generating plant superintendent legend CBC AUTO DIFF Reviewed date:11/27/2024 12:23:08 PM Interpretation: Performing Lab: Notes/Report: [facility] ,White Blood Count3.54.0-11.0 10 3/uLRed Blood Count4.564.20-5.40 10 6/uL Ypgamfsbjf55.012.0-16.0 g/aPBaiftyefga01.936.0-48.0 %Mean Corpuscular Qidroi71.7 81.0-99.0 fLMean Corpuscular Eibcibeysa37.526.7-34.0 pgMean Corpuscular HGB Conc 31.829.9-35.2 g/dLRed Cell Distribution Width13.211.0-15.0 %Platelet Mcnkt086 150-450 10 3/uLMean Platelet Volume9.69.5-13.5 fLNeutrophils Percent Auto80.2 43.0-75.0 %Lymphocytes Percent Auto15.520.5-60.0 %Monocytes Percent Auto4.01.7- 12.0 %Eosinophils Percent Auto0.00.9-7.0 %Basophils Percent Auto0.00.2-2.0 % Immature Granulocytes Pct Auto0.30.0-0.5 %Neutrophils Absolute Auto2.81.4-6.5 10 3/uLLymphocytes Absolute Auto0.61.2-3.8 10 3/uLMonocytes Absolute Auto0.10.3-0.8 10 3/uLEosinophils Absolute Auto0.00.0-0.7 10 3/uLBasophils Absolute Auto0.00.0- 0.1 10 3/uLImmature Granulocytes Abs Auto0.010.00-0.03 10 3/uLPerforming Lab:see noteML - [facility] LBPROF 14(COMP METB) Reviewed date:11/27/2024 12:23:08 PM Interpretation: Performing Lab: Notes/Report: [facility] ,Ruzddh830107-010 mmol/LPotassium3.73.5-5.1 mmol/ZCicbnttb98845-657 mmol/LCarbon Uyjywvg24.021.0-32.0 mmol/LAnion Gap11.5Dzvdxnu83695-562 mg/dLBlood Urea Pwodepfd73.07.0-18.0 mg/dLCreatinine0.890.55-1.02 mg/dLEstimated GFR ( Raya>60>=60 mL/min/1.73m 2Estimated GFR (Non- Heidi>60>=60 mL/min/1.73m 2BUN Creatinine Ratio15.1Bvxcbft8.58.5-10.1 mg/dLBilirubin Total0.20.2-1.0 mg/dL Aspartate Amino Hhwnsilzntb9553-50 U/LAlanine Rljnfbxifgacqxng1471-63 U/L Alkaline Ggjqwdhfokd2577-504 U/LTotal Protein5.96.4-8.2 g/dLAlbumin Level3.03.4- 5.0 g/dLGlobulin2.9Albumin Globulin Ratio1.0Performing Lab:see noteML - [facility] LBCBC AUTO DIFF Reviewed date:11/29/2024 12:59:18 PM Interpretation: Performing Lab: Notes/Report: [facility] ,White Blood Count2.24.0-11.0 10 3/uLRed Blood Count4.614.20-5.40 10 6/uL Kfkqvgncyg45.312.0-16.0 g/tFStnwgrdfab32.236.0-48.0 %Mean Corpuscular Pzbnlw62.4 81.0-99.0 fLMean Corpuscular Anapbcrbme26.926.7-34.0 pgMean Corpuscular HGB Conc 32.329.9-35.2 g/dLRed Cell Distribution Width13.211.0-15.0 %Platelet Xvbtu769 150-450 10 3/uLMean Platelet Volume9.49.5-13.5 fLNeutrophils Percent Auto63.9 43.0-75.0 %Lymphocytes Percent Auto28.420.5-60.0 %Monocytes Percent Auto7.71.7- 12.0 %Eosinophils Percent Auto0.00.9-7.0 %Basophils Percent Auto0.00.2-2.0 % Immature Granulocytes Pct Auto0.00.0-0.5 %Neutrophils Absolute Auto1.41.4-6.5 10 3/uLLymphocytes Absolute Auto0.61.2-3.8 10 3/uLMonocytes Absolute Auto0.20.3-0.8 10 3/uLEosinophils Absolute Auto0.00.0-0.7 10 3/uLBasophils Absolute Auto0.00.0- 0.1 10 3/uLImmature Granulocytes Abs Auto0.000.00-0.03 10 3/uLPerforming Lab:see noteML - [facility] LBLIPID PROFILE Reviewed date:11/29/2024 12:59:18 PM Interpretation: Performing Lab: Notes/Report: [facility] ,Vrxnneqwycdmu988<=150 mg/dRVzthfxujoah768<=200 mg/dLHDL Ikpuvueafpf1451-74 mg/dL > or =60 mg/dl - LOW CARDIOVASCULAR RISK <40 mg/dl - HIGH CARDIOVASCULAR RISK LDL Cholesterol Prurqeerpp25.0 <100 mg/dl OPTIMAL 100-129 mg/dl NEAR OR ABOVE OPTIMAL 130-159 mg/dl BORDERLINE HIGH 160-189 mg/dl HIGH >190 mg/dl VERY HIGH VLDL DKCQHDMAEKI46.8Chol HDL Ratio4.8 3.3 - 4.4 LOW RISK 4.4 - 7.1 AVERAGE RISK 7.1 - 11.0 MODERATE RISK >11.0 HIGH RISK Performing Lab:see noteML - [facility] LBPROF 14(COMP METB) Reviewed date:11/29/2024 12:59:18 PM Interpretation: Performing Lab: Notes/Report: [facility] ,Omsnbo863958-250 mmol/LPotassium3.03.5-5.1 mmol/RUimnmalb39103-434 mmol/LCarbon Ojynabs39.421.0-32.0 mmol/LAnion Gap10.7Fcjmyno6229-472 mg/dLBlood Urea Nitrogen 23.07.0-18.0 mg/dLCreatinine1.080.55-1.02 mg/dLEstimated GFR ( Raay>60 >=60 mL/min/1.73m 2Estimated GFR (Non- Ame52>=60 mL/min/1.73m 2BUN Creatinine Ratio21.0Bnzyshf0.48.5-10.1 mg/dLBilirubin Total0.70.2-1.0 mg/dL Aspartate Amino Rlyykromzgz3920-19 U/LAlanine Fmrxvntebaiyfeya7053-48 U/L Alkaline Tywnlhppwaw4969-184 U/LTotal Protein6.56.4-8.2 g/dLAlbumin Level3.53.4- 5.0 g/dLGlobulin3.0Albumin Globulin Ratio1.2Performing Lab:see noteML - [facility] LBACETAMINOPHEN Reviewed date:12/01/2024 08:34:44 PM Interpretation: Performing Lab: Notes/Report: [facility] ,Acetaminophen<2.010.0-30.0 ug/mLPerforming Lab:see noteML - [facility] LBCBC AUTO DIFF Reviewed date:12/01/2024 08:34:44 PM Interpretation: Performing Lab: Notes/Report: [facility] ,White Blood Count3.94.0-11.0 10 3/uLRed Blood Count5.514.20-5.40 10 6/uL Dzvnowhdqe43.512.0-16.0 g/sJLhaomdsrpb80.036.0-48.0 %Mean Corpuscular Dkfyqb40.1 81.0-99.0 fLMean Corpuscular Fjcmawyulz48.126.7-34.0 pgMean Corpuscular HGB Conc 32.329.9-35.2 g/dLRed Cell Distribution Width12.711.0-15.0 %Platelet Pgfdm307 150-450 10 3/uLMean Platelet Volume9.99.5-13.5 fLNeutrophils Percent Auto70.0 43.0-75.0 %Lymphocytes Percent Auto19.020.5-60.0 %Monocytes Percent Auto8.71.7- 12.0 %Eosinophils Percent Auto1.80.9-7.0 %Basophils Percent Auto0.00.2-2.0 % Immature Granulocytes Pct Auto0.50.0-0.5 %Neutrophils Absolute Auto2.71.4-6.5 10 3/uLLymphocytes Absolute Auto0.71.2-3.8 10 3/uLMonocytes Absolute Auto0.30.3-0.8 10 3/uLEosinophils Absolute Auto0.10.0-0.7 10 3/uLBasophils Absolute Auto0.00.0- 0.1 10 3/uLImmature Granulocytes Abs Auto0.020.00-0.03 10 3/uLPerforming Lab:see note - [facility] LBPROF CHEM 8 (BAS METB) Reviewed date:12/01/2024 08:34:44 PM Interpretation: Performing Lab: Notes/Report: [facility] ,Dnxvvv248508-403 mmol/LPotassium3.33.5-5.1 mmol/FMnzzukup91032-890 mmol/LCarbon Gdfpxwq31.621.0-32.0 mmol/LAnion Gap10.9Reahvcz7922-817 mg/dLBlood Urea Nitrogen 15.07.0-18.0 mg/dLCreatinine1.150.55-1.02 mg/dLEstimated GFR ( Zhrykgn36 >=60 mL/min/1.73m 2Estimated GFR (Non- Ame48>=60 mL/min/1.73m 2BUN Creatinine Ratio13.8Lytyjqi7.08.5-10.1 mg/dLPerforming Lab:see note - [facility] LBSalicylate Reviewed date:12/01/2024 08:34:44 PM Interpretation: Performing Lab: Notes/Report: [facility] ,Salicylate<2.8<=19.9 mg/dLPerforming Lab:see noteML - [facility] LB Ethanol Reviewed date:12/01/2024 08:34:44 PM Interpretation: Performing Lab: Notes/Report: [facility] ,Ethanol<3NOTE: 80 mg/dl is the legal limit for a blood alcohol levelPerforming Lab:see noteML - [facility] LBECG 12 lead Reviewed date:12/03/2024 07:36:19 PM Interpretation: Performing Lab: Notes/Report: Source Facility: [place] [address] [place] [address] Electrocardiograph Report Signed Patient: MARTHA APODACA MR#: [id number] : 1965 Acct:[id number] Age/Sex: 59 / F ADM Date: 12/01/24 Loc: ER Attending Dr: Ordering Physician: Ruben Browne D.O. 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 Signed By: 12/03/24 1036 DD/ 1448 TD/TT: Car Usher:ZOLTAN Talavera Reviewed date:12/11/2024 12:46:41 PM Interpretation: Performing Lab: Notes/Report: Source Facility: [facility] [address] XRay Report Signed Patient: MARTHA APODACA MR#: [id number] : 1965 Acct:[id number] Age/Sex: 59 / F ADM Date: 12/11/24 Loc: [facility] Attending Dr: Tony Turner M.D. Ordering Physician: Tony Turner M.D. Date of Service: 12/11/24 Procedure(s): XR pelvis 1-2V Accession Number(s): [id number] cc: Tony Turner M.D. [place] [address] Patient Name: MARTHA APODACA MRN: [id number] date: 1965 Sex: F Assigned Patient Location: [facility] Current Patient Location: [facility] Accession/Order Number: [id number] Exam Date: 12/11/2024 10:31 Report Date: 12/11/2024 [...] Lou Young M.D.12/11/2024 10:40 AM Dictation Location: [place] [address] Electronically authenticated by: [id number] Y Date: 12/11/2024 10:40 Dictated By: Lou Young M.D. Signed By: 12/11/24 1043 DD/ 1040 TD/TT: Car Usher:XR lumbar spine min 4V Reviewed date:12/11/2024 12:46:41 PM Interpretation: Performing Lab: Notes/Report: Source Facility: [place] [address] XRay Report Signed Patient: MARTHA APODACA MR#: [id number] : 1965 Acct:[id number] Age/Sex: 59 / F ADM Date: 12/11/24 Loc: RAD Attending Dr: Tony Turner M.D. Ordering Physician: Tony Turner M.D. Date of Service: 12/11/24 Procedure(s): XR lumbar spine min 4V Accession Number(s): [id number] cc: Tony Turner M.D. [place] [address] Patient Name: MARTHA APODACA MRN: [id number] date: 1965 Sex: F Assigned Patient Location: [facility] Current Patient Location: [facility] Accession/Order Number: [id number] Exam Date: 12/11/2024 10:31 Report Date: 12/11/2024 [...] Lou Young M.D.12/11/2024 10:40 AM Dictation Location: [place] [address] Electronically authenticated by: [id number] Y Date: 12/11/2024 10:40 Dictated By: Luo Young M.D. Signed By: 12/11/24 1043 DD/ 1040 TD/TT: Car Usher:BNP Reviewed date:02/20/2025 12:37:15 PM Interpretation: Performing Lab: Notes/Report: [facility] ,NT Pro B Type Natriuretic Pept33.0<=900.0 pg/mLPerforming Lab:see noteML - [facility] LBCBC AUTO DIFF Reviewed date:02/20/2025 12:37:15 PM Interpretation: Performing Lab: Notes/Report: [facility] ,White Blood Count7.64.0-11.0 10 3/uLRed Blood Count5.004.20-5.40 10 6/uL Erfpiyztke98.912.0-16.0 g/pFDextwexyso81.736.0-48.0 %Mean Corpuscular Vfwoor68.4 81.0-99.0 fLMean Corpuscular Hrhuqflzkl94.826.7-34.0 pgMean Corpuscular HGB Conc 32.629.9-35.2 g/dLRed Cell Distribution Width13.111.0-15.0 %Platelet Omntx903 150-450 10 3/uLMean Platelet Volume9.39.5-13.5 fLNeutrophils Percent Auto74.4 43.0-75.0 %Lymphocytes Percent Auto16.920.5-60.0 %Monocytes Percent Auto4.91.7- 12.0 %Eosinophils Percent Auto3.20.9-7.0 %Basophils Percent Auto0.30.2-2.0 % Immature Granulocytes Pct Auto0.30.0-0.5 %Neutrophils Absolute Auto5.71.4-6.5 10 3/uLLymphocytes Absolute Auto1.31.2-3.8 10 3/uLMonocytes Absolute Auto0.40.3-0.8 10 3/uLEosinophils Absolute Auto0.20.0-0.7 10 3/uLBasophils Absolute Auto0.00.0- 0.1 10 3/uLImmature Granulocytes Abs Auto0.020.00-0.03 10 3/uLPerforming Lab:see noteML - [facility] LBCRP Reviewed date:02/20/2025 12:37:15 PM Interpretation: Performing Lab: Notes/Report: [facility] ,C Reactive Protein<0.50<=0.50 mg/dLPerforming Lab:see noteML - [facility] LBLACTATE or LACTIC ACID Reviewed date:02/20/2025 12:37:15 PM Interpretation: Performing Lab: Notes/Report: [facility] ,Lactate/Lactic Acid0.80.4-2.0 mmol/LPerforming Lab:see noteML - [facility] LBPROF 14(COMP METB) Reviewed date:02/20/2025 12:37:15 PM Interpretation: Performing Lab: Notes/Report: [facility] ,Jmgtly571613-617 mmol/LPotassium3.93.5-5.1 mmol/ROxcdwaqx15485-587 mmol/LCarbon Smztdcy61.721.0-32.0 mmol/LAnion Gap12.7Tjuweey47920-647 mg/dLBlood Urea Yxysueib71.07.0-18.0 mg/dLCreatinine1.010.55-1.02 mg/dLEstimated GFR ( Raya>60>=60 mL/min/1.73m 2Estimated GFR (Non- Ame56>=60 mL/min/1.73m 2 BUN Creatinine Ratio15.7Eudwrqv3.68.5-10.1 mg/dLBilirubin Total0.20.2-1.0 mg/dL Aspartate Amino Zsrbkoyryzf1120-59 U/LAlanine Uwktsygthkwjpcqx0459-41 U/L Alkaline Gvizxdpsbqi15359-117 U/LTotal Protein7.66.4-8.2 g/dLAlbumin Level3.8 3.4-5.0 g/dLGlobulin3.8Albumin Globulin Ratio1.0Performing Lab:see note - [facility] LBTroponin I High Sensitivity Reviewed date:02/20/2025 12:37:15 PM Interpretation: Performing Lab: Notes/Report: [facility] ,Troponin I High Sensitivity4.64.0-51.3 pg/mL CUT-OFF POINTS HAVE BEEN ESTABLISHED BASED ON THE FOURTH UNIVERSAL DEFINITION OF MYOCARDIAL INFARCTION. THE UPPER REFERENCE LIMIT (URL) OF TROPONIN, DEFINED THE 99TH PERCENTILE OF cTnI DISTRIBUTION IN A REFERENCE POPULATION, HAS BEEN CONFIRMED THE DECISION THRESHOLD FOR ID DIAGNOSIS. 99TH PERCENTILE = 51.4 PG/ML NOTE: HIGH-SENSITIVITY TROPONIN ASSAY IS NOT INTENDED TO BE USED IN ISOLATION BUT SHOULD BE INTERPRETED IN CONJUNCTION WITH OTHER DIAGNOSTIC AND CLINICAL INFORMATION. Performing Lab:see note - [facility] LBECG 12 lead Reviewed date:02/20/2025 12:37:15 PM Interpretation: Performing Lab: Notes/Report: Source Facility: [facility] [place] [address] Electrocardiograph Report Signed Patient: MARTHA APODACA MR#: [id number] : 1965 Acct:[id number] Age/Sex: 59 / F ADM Date: 02/19/25 Loc: [place] 230-[address]: Tony Turner M.D. 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 Measurements Intervals [place] Rate: 77 P: 71 HI: 144 QRS: 90 QRSD: 78 T: 76 QT: 362 QTc: 393 Interpretive Statements 1100 Sinus rhythm 9110 normal ECG Compared to ECG 02/19/2025 22:47:14 Atrial-paced complex(es) or rhythm no longer present Right-axis deviation no longer present Electronically Signed On 02-20-2025 7:04:45 EDT by LUIS ARMANDO DIAS M.D. Dictated By: LUIS ARMANDO DIAS Signed By: 02/20/25 0705 DD/ 2249 TD/TT: Car Usher:CBC AUTO DIFF Reviewed date:02/20/2025 12:37:15 PM Interpretation: Performing Lab: Notes/Report: [facility] ,White Blood Count5.14.0-11.0 10 3/uLRed Blood Count4.674.20-5.40 10 6/uL Vkcmtywxlw14.112.0-16.0 g/yRVqasfguknp63.936.0-48.0 %Mean Corpuscular Xctjox35.4 81.0-99.0 fLMean Corpuscular Mdykhnchro54.126.7-34.0 pgMean Corpuscular HGB Conc 32.829.9-35.2 g/dLRed Cell Distribution Width12.911.0-15.0 %Platelet Vqrik461 150-450 10 3/uLMean Platelet Volume9.39.5-13.5 fLPerforming Lab:see noteML - [facility] LBINFLUENZA A AND B AG Reviewed date:02/20/2025 12:37:15 PM Interpretation: Performing Lab: Notes/Report: [facility] ,Influenza Virus A AntigenNegative Negative for Flu A protein antigen. Infection due to Flu A cannot be ruled out. Flu A antigen in the sample may be below the detection limit of the test. Influenza Virus B AntigenNegative Negative for Flu B protein antigen. Infection due to Flu B cannot be ruled out. Flu B antigen in the sample may be below the detection limit of the test. Performing Lab:see noteML - [facility] LBMAGNESIUM Reviewed date:02/20/2025 12:37:15 PM Interpretation: Performing Lab: Notes/Report: [facility] ,Magnesium2.61.8-2.4 mg/dLPerforming Lab:see note - [facility] LB PROF 14(COMP METB) Reviewed date:02/20/2025 12:37:15 PM Interpretation: Performing Lab: Notes/Report: [facility] ,Excprn337314-657 mmol/LPotassium4.03.5-5.1 mmol/TTxwifkol50562-915 mmol/LCarbon Ciugysf05.721.0-32.0 mmol/LAnion Gap14.9Flqsqto35647-975 mg/dLBlood Urea Idhllpzq81.07.0-18.0 mg/dLCreatinine0.920.55-1.02 mg/dLEstimated GFR ( Raya>60>=60 mL/min/1.73m 2Estimated GFR (Non- Heidi>60>=60 mL/min/1.73m 2BUN Creatinine Ratio16.9Putpvaz8.68.5-10.1 mg/dLBilirubin Total0.20.2-1.0 mg/dL Aspartate Amino Rmmthbpemsp5305-88 U/LAlanine Fsvflbzslicaqljl8489-05 U/L Alkaline Eleuqsetzbi15868-811 U/LTotal Protein6.66.4-8.2 g/dLAlbumin Level3.2 3.4-5.0 g/dLGlobulin3.4Albumin Globulin Ratio0.9Performing Lab:see noteML - [facility] LBRSV Reviewed date:02/20/2025 12:37:15 PM Interpretation: Performing Lab: Notes/Report: [facility] ,Respiratory Syncytial VirusNot DetectedNOT DETECTEPerforming Lab:see note - [facility] LBManual Differential Reviewed date:02/20/2025 12:37:15 PM Interpretation: Performing Lab: Notes/Report: [facility] ,Segmented Neutrophils % Xpnlfm79.043.0-75.0Lymphocytes Percent Fihnop21.020.5- 60.0 %Monocytes Percent Manual0.01.7-12.0 %Eosinophils Percent Manual1.00.9-7.0 %Basophils Percent Manual0.00.2-2.0 %Segmented Neut Absolute Manual4.431.4-6.5 10 3/uLLymphocytes Absolute Manual0.611.20-3.80 10 3/uLMonocytes Absolute Manual 0.000.30-0.80 10 3/uLEosinophils Absolute Manual0.050.00-0.70 10 3/uLBasophils Abs Manual0.000.00-0.10 10 3/uLAnisocytosis1+Ovalocytes1+Performing Lab:see note ML - [facility] QNWSSG-XqR-3 Ag* Reviewed date:02/20/2025 12:37:15 PM Interpretation: Performing Lab: Notes/Report: [facility] ,SARS-CoV-2 AgNEGATIVENEGATIVE This test has not been FDA cleared [...] terminated or authorization is revoked sooner. Performing Lab:see noteML - [facility] LBMAGNESIUM Reviewed date:02/22/2025 11:42:53 AM Interpretation: Performing Lab: Notes/Report: Comment use blood already drawn this am? [facility] ,Magnesium2.31.8-2.4 mg/dLPerforming Lab:see noteML - [facility] LB CBC AUTO DIFF Reviewed date:02/22/2025 11:42:53 AM Interpretation: Performing Lab: Notes/Report: [facility] ,White Blood Count8.84.0-11.0 10 3/uLRed Blood Count4.154.20-5.40 10 6/uL Ilmnvectqd13.412.0-16.0 g/mMWwtnmthkpv20.636.0-48.0 %Mean Corpuscular Iimlbp81.2 81.0-99.0 fLMean Corpuscular Jcdpsbtpyt72.526.7-34.0 pgMean Corpuscular HGB Conc 31.129.9-35.2 g/dLRed Cell Distribution Width13.211.0-15.0 %Platelet Btttq360 150-450 10 3/uLMean Platelet Rgednd91.09.5-13.5 fLNeutrophils Percent Auto84.7 43.0-75.0 %Lymphocytes Percent Auto10.620.5-60.0 %Monocytes Percent Auto4.21.7- 12.0 %Eosinophils Percent Auto0.00.9-7.0 %Basophils Percent Auto0.00.2-2.0 % Immature Granulocytes Pct Auto0.50.0-0.5 %Neutrophils Absolute Auto7.41.4-6.5 10 3/uLLymphocytes Absolute Auto0.91.2-3.8 10 3/uLMonocytes Absolute Auto0.40.3-0.8 10 3/uLEosinophils Absolute Auto0.00.0-0.7 10 3/uLBasophils Absolute Auto0.00.0- 0.1 10 3/uLImmature Granulocytes Abs Auto0.040.00-0.03 10 3/uLPerforming Lab:see noteML - [facility] LBPROF CHEM 8 (BAS METB) Reviewed date:02/22/2025 11:42:53 AM Interpretation: Performing Lab: Notes/Report: [facility] ,Dhsenc085694-754 mmol/LPotassium3.73.5-5.1 mmol/AZcyispva47521-567 mmol/LCarbon Ioomdvg19.021.0-32.0 mmol/LAnion Gap10.6Vsjpnsy00510-558 mg/dLBlood Urea Ybjsencj57.07.0-18.0 mg/dLCreatinine0.780.55-1.02 mg/dLEstimated GFR ( Raya>60>=60 mL/min/1.73m 2Estimated GFR (Non- Heidi>60>=60 mL/min/1.73m 2BUN Creatinine Ratio29.5Smgccsg0.68.5-10.1 mg/dLPerforming Lab:see noteML - [facility] LBINFLUENZA A AND B AG Reviewed date:07/15/2025 08:04:03 AM Interpretation: Performing Lab: Notes/Report: [facility] ,Influenza Virus A AntigenNegative Negative for Flu A protein antigen. Infection due to Flu A cannot be ruled out. Flu A antigen in the sample may be below the detection limit of the test. Influenza Virus B AntigenNegative Negative for Flu B protein antigen. Infection due to Flu B cannot be ruled out. Flu B antigen in the sample may be below the detection limit of the test. Performing Lab:see noteML - [facility] PVHABJ-AhN-9 Ag* Reviewed date:07/15/2025 08:04:03 AM Interpretation: Performing Lab: Notes/Report: [facility] ,SARS-CoV-2 AgNEGATIVENEGATIVE This test has not been FDA cleared [...] terminated or authorization is revoked sooner. Performing Lab:see noteML - [facility] LBXR chest 1V Reviewed date:07/15/2025 08:04:03 AM Interpretation: Performing Lab: Notes/Report: Source Facility: [facility]-[address] [place] [address] [place] [address] XRay Report Signed Patient: MARTHA APODACA MR#: [id number] : 1965 Acct:[id number] Age/Sex: 59 / F ADM Date: 07/14/25 Loc: ER Attending Dr: Ordering Physician: Dee Raphael Date of Service: 07/14/25 Procedure(s): XR chest 1V Accession Number(s): [id number] cc: Tony Turner M.D.; Dee Raphael [place] [id number] Patient Name: MARTHA APODACA MRN: [id number] date: 1965 Sex: F Assigned Patient Location: ED.MAIN Current Patient Location: ED.MAIN Accession/Order Number: [id number] Exam Date: 07/14/2025 19:21 Report Date: 07/14/2025 19:45 At the request of: DEE GALVEZ Procedure: XR chest 1V XR chest 1V 07/14/2025 7:24 PM SIGNS AND SYMPTOMS: Cough, SOB PROTOCOL: Frontal radiograph of the chest COMPARISON: 02/19/2025 FINDINGS: The trachea is midline. There is a dual lead pacer on the left. The heart and mediastinal structures are within normal limits. Pleural based scarring laterally on the right. The lung parenchyma is clear. There is a dextro convex curvature of the thoracic spine. Degenerative changes are noted in the shoulders. XR/XR chest 1V IMPRESSION: No acute cardiopulmonary pathology. Chronic findings are redemonstrated as above. Impression dictated by: Edmond Canada M.D. 07/14/2025 7:45 PM Dictation Location: [place] [address] Electronically authenticated by: [id number] Y Date: 07/14/2025 19:45 Dictated By: Edmond Canada M.D. Signed By: 07/14/251946 DD/ 44 TD/TT: Car Usher:BNP Reviewed date:07/21/2025 12:33:14 PM Interpretation: Performing Lab: Notes/Report: [facility] ,NT Pro B Type Natriuretic Pept26.0<=900.0 pg/mLPerforming Lab:see noteML - [facility] LBCBC AUTO DIFF Reviewed date:07/21/2025 12:33:14 PM Interpretation: Performing Lab: Notes/Report: [facility] ,White Blood Count8.64.0-11.0 10 3/uLRed Blood Count5.004.20-5.40 10 6/uL Hdqsryvxsa12.712.0-16.0 g/hCBevnalumlq50.236.0-48.0 %Mean Corpuscular Kbusve31.4 81.0-99.0 fLMean Corpuscular Wwfshvctuw92.426.7-34.0 pgMean Corpuscular HGB Conc 32.529.9-35.2 g/dLRed Cell Distribution Width14.111.0-15.0 %Platelet Kbygu349 150-450 10 3/uLMean Platelet Volume9.59.5-13.5 fLNeutrophils Percent Auto70.6 43.0-75.0 %Lymphocytes Percent Auto19.120.5-60.0 %Monocytes Percent Auto4.81.7- 12.0 %Eosinophils Percent Auto5.10.9-7.0 %Basophils Percent Auto0.20.2-2.0 % Immature Granulocytes Pct Auto0.20.0-0.5 %Neutrophils Absolute Auto6.01.4-6.5 10 3/uLLymphocytes Absolute Auto1.61.2-3.8 10 3/uLMonocytes Absolute Auto0.40.3-0.8 10 3/uLEosinophils Absolute Auto0.40.0-0.7 10 3/uLBasophils Absolute Auto0.00.0- 0.1 10 3/uLImmature Granulocytes Abs Auto0.020.00-0.03 10 3/uLPerforming Lab:see noteML - [facility] LBPROF CHEM 8 (BAS METB) Reviewed date:07/21/2025 12:33:14 PM Interpretation: Performing Lab: Notes/Report: [facility] ,Fddprx596571-117 mmol/LPotassium3.83.5-5.1 mmol/JHaejbaxq11409-314 mmol/LCarbon Fvdkmtm76.421.0-32.0 mmol/LAnion Gap13.6Qgcogvd40005-871 mg/dLBlood Urea Wpfeeqxb09.07.0-18.0 mg/dLCreatinine0.950.55-1.02 mg/dLEstimated GFR ( Raya>60>=60 mL/min/1.73m 2Estimated GFR (Non- Heidi>60>=60 mL/min/1.73m 2BUN Creatinine Ratio17.5Cwkiuzf6.88.5-10.1 mg/dLPerforming Lab:see noteML - [facility] LBTroponin I High Sensitivity Reviewed date:07/21/2025 12:33:14 PM Interpretation: Performing Lab: Notes/Report: [facility] ,Troponin I High Sensitivity<4.04.0-51.3 pg/mL CUT-OFF POINTS HAVE BEEN ESTABLISHED BASED ON THE FOURTH UNIVERSAL DEFINITION OF MYOCARDIAL INFARCTION. THE UPPER REFERENCE LIMIT (URL) OF TROPONIN, DEFINED THE 99TH PERCENTILE OF cTnI DISTRIBUTION IN A REFERENCE POPULATION, HAS BEEN CONFIRMED THE DECISION THRESHOLD FOR ID DIAGNOSIS. 99TH PERCENTILE = 51.4 PG/ML NOTE: HIGH-SENSITIVITY TROPONIN ASSAY IS NOT INTENDED TO BE USED IN ISOLATION BUT SHOULD BE INTERPRETED IN CONJUNCTION WITH OTHER DIAGNOSTIC AND CLINICAL INFORMATION. Performing Lab:see noteML - [facility] LBECG 12 lead Reviewed date:07/21/2025 02:22:38 PM Interpretation: Performing Lab: Notes/Report: Source Facility: [place] [address] [place] [address] Electrocardiograph Report Signed Patient: MARTHA APODACA MR#: [id number] : 1965 Acct:[id number] Age/Sex: 59 / F ADM Date: 07/20/25 Loc: [place] 219-[address]: Wander Paez M.D. 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 Signed By: 07/21/25 1315 DD/ 27 TD/TT: Car Usher:INFLUENZA A AND B AG Reviewed date:07/21/2025 02:22:38 PM Interpretation: Performing Lab: Notes/Report: [facility] ,Influenza Virus A AntigenNegative Negative for Flu A protein antigen. Infection due to Flu A cannot be ruled out. Flu A antigen in the sample may be below the detection limit of the test. Influenza Virus B AntigenNegative Negative for Flu B protein antigen. Infection due to Flu B cannot be ruled out. Flu B antigen in the sample may be below the detection limit of the test. Performing Lab:see noteML - [facility] TLQQZY-HfR-4 Ag* Reviewed date:07/21/2025 02:22:38 PM Interpretation: Performing Lab: Notes/Report: [facility] ,SARS-CoV-2 AgNEGATIVENEGATIVE This test has not been FDA cleared [...] terminated or authorization is revoked sooner. Performing Lab:see noteML - [facility] LBXR chest 1V Reviewed date:07/21/2025 12:33:14 PM Interpretation: Performing Lab: Notes/Report: Source Facility: [facility]-[address] [place] [address] [place] [address] XRay Report Signed Patient: MARTHA APODACA MR#: [id number] : 1965 Acct:[id number] Age/Sex: 59 / F ADM Date: 07/20/25 Loc: [place] 219-[address]: Wander Paez M.D. Ordering Physician: Mark Martinez Date of Service: 07/20/25 Procedure(s): XR chest 1V Accession Number(s): [id number] cc: Mark Martinez; Tony Turner M.D. [place] [address] Patient Name: MARTHA APODACA MRN: [id number] date: 1965 Sex: F Assigned Patient Location: ER Current Patient Location: [place] Accession/Order Number: [id number] Exam Date: 07/20/2025 22:40 Report Date: 07/21/2025 08:09 At the request of: MARK MARTINEZ MD Procedure: XR chest 1V XR chest 1V 07/20/2025 10:43 PM SIGNS AND SYMPTOMS: short of breath PROTOCOL: Frontal radiograph of the chest COMPARISON: 07/14/2025 FINDINGS: The trachea is midline. There is a dual lead pacer device on the left. The heart and mediastinal structures are within normal limits. Similar scarring is noted in the right mid chest laterally. The lung parenchyma is clear, otherwise. The bony thorax is intact. XR/XR chest 1V IMPRESSION: No acute cardiopulmonary pathology. Impression dictated by: Edmond Canada M.D. 07/21/2025 8:09 AM Dictation Location: [place] [address] Electronically authenticated by: [id number] Y Date: 07/21/2025 08:09 Dictated By: Edmond Canada M.D. Signed By: 07/21/25811 DD/ 8 TD/TT: Car Usher:CBC AUTO DIFF (Not yet reviewed by provider) Interpretation: Performing Lab: Notes/Report: [facility] ,White Blood Count5.94.0-11.0 10 3/uLRed Blood Count4.424.20-5.40 10 6/uL Ghtdempdaf84.212.0-16.0 g/wUSpuibsegvo34.136.0-48.0 %Mean Corpuscular Tmwnew03.2 81.0-99.0 fLMean Corpuscular Eiapcnizri51.626.7-34.0 pgMean Corpuscular HGB Conc 32.029.9-35.2 g/dLRed Cell Distribution Width14.211.0-15.0 %Platelet Uzzyu322 150-450 10 3/uLMean Platelet Volume9.99.5-13.5 fLNeutrophils Percent Auto85.4 43.0-75.0 %Lymphocytes Percent Auto12.420.5-60.0 %Monocytes Percent Auto2.01.7- 12.0 %Eosinophils Percent Auto0.00.9-7.0 %Basophils Percent Auto0.00.2-2.0 % Immature Granulocytes Pct Auto0.20.0-0.5 %Neutrophils Absolute Auto5.01.4-6.5 10 3/uLLymphocytes Absolute Auto0.71.2-3.8 10 3/uLMonocytes Absolute Auto0.10.3-0.8 10 3/uLEosinophils Absolute Auto0.00.0-0.7 10 3/uLBasophils Absolute Auto0.00.0- 0.1 10 3/uLImmature Granulocytes Abs Auto0.010.00-0.03 10 3/uLPerforming Lab:see noteML - [facility] LBMAGNESIUM (Not yet reviewed by provider) Interpretation: Performing Lab: Notes/Report: [facility] ,Magnesium2.31.8-2.4 mg/dLPerforming Lab:see noteML - [facility] LB PROF 14(COMP METB) (Not yet reviewed by provider) Interpretation: Performing Lab: Notes/Report: [facility] ,Wqkzmd162696-197 mmol/LPotassium4.13.5-5.1 mmol/HJngqftmy83250-026 mmol/LCarbon Cgjjudy42.021.0-32.0 mmol/LAnion Gap11.7Wraxwzv36286-503 mg/dLBlood Urea Qizvqmqv54.07.0-18.0 mg/dLCreatinine0.810.55-1.02 mg/dLEstimated GFR ( Raya>60>=60 mL/min/1.73m 2Estimated GFR (Non- Heidi>60>=60 mL/min/1.73m 2BUN Creatinine Ratio22.4Cnohowt6.78.5-10.1 mg/dLBilirubin Total0.10.2-1.0 mg/dL Aspartate Amino Tlbvvxmsehs8682-60 U/LAlanine Dfotcqbstxoftzci2370-12 U/L Alkaline Drmvlncqdlo61720-541 U/LTotal Protein6.76.4-8.2 g/dLAlbumin Level3.0 3.4-5.0 g/dLGlobulin3.7Albumin Globulin Ratio0.8Performing Lab:see noteML - [facility] LBXR chest 1V (Not yet reviewed by provider) Interpretation: Performing Lab: Notes/Report: Source Facility: [place] [address] [place] [address] XRay Report Signed Patient: MARTHA APODACA MR#: [id number] : 1965 Acct:[id number] Age/Sex: 59 / F ADM Date: 07/20/25 Loc: [place] 219-[address]: Wander Paez M.D. Ordering Physician: Chetan Swenson M.D. Date of Service: 07/22/25 Procedure(s): XR chest 1V Accession Number(s): [id number] cc: Chetan Swenson M.D.; Tony Turner M.D. [place] [address] Patient Name: MARTHA APODACA MRN: [id number] date: 1965 Sex: F Assigned Patient Location: [place] Current Patient Location: [place] Accession/Order Number: [id number] Exam Date: 07/22/2025 11:05 Report Date: 07/22/2025 11:09 At the request of: CHETAN SWENSON MD Procedure: XR chest 1V XR chest 1V 07/22/2025 10:40 AM SIGNS AND SYMPTOMS: Follow up PROTOCOL: Frontal radiograph of the chest COMPARISON: 07/20/2025 FINDINGS: The trachea is midline. There is a dual lead pacer device on the left which is unchanged. The heart and mediastinal structures are within normal limits. Similar linear scarring is noted in the right perihilar region extending towards the right lateral chest wall. The lung parenchyma is clear, otherwise. The bony thorax is intact. XR/XR chest 1V IMPRESSION: No acute cardiopulmonary pathology. Additional chronic findings are redemonstrated as above. Impression dictated by: Edmond Canada M.D. 07/22/2025 11:09 AM Dictation Location: [place] [address] Electronically authenticated by: [id number] Y Date: 07/22/2025 11:09 Dictated By: Edmond Canada M.D. Signed By: 07/22/25 1120 DD/ 1109 TD/TT: Car Usher:PROF CHRISTO [facility] ([facility]) Reviewed date:02/22/2025 11:42:53 AM Interpretation: Performing Lab: Notes/Report: [facility] ,Itybtb716037-716 mmol/LPotassium4.23.5-5.1 mmol/NDqmfbvvi42517-994 mmol/LCarbon Sgnevvs41.121.0-32.0 mmol/LAnion Gap15.5Qfeehow53560-924 mg/dLBlood Urea Witsnkog97.07.0-18.0 mg/dLCreatinine0.790.55-1.02 mg/dLEstimated GFR ( Raya>60>=60 mL/min/1.73m 2Estimated GFR (Non- Heidi>60>=60 mL/min/1.73m 2BUN Creatinine Ratio22.3Ktvrvdd1.48.5-10.1 mg/dLPerforming Lab:see noteML - [facility] LBCBC AUTO DIFF Reviewed date:02/22/2025 11:42:53 AM Interpretation: Performing Lab: Notes/Report: [facility] ,White Blood Count7.54.0-11.0 10 3/uLRed Blood Count4.284.20-5.40 10 6/uL Iinfjjrani11.712.0-16.0 g/bYNyvytpabxu10.136.0-48.0 %Mean Corpuscular Soejmg27.7 81.0-99.0 fLMean Corpuscular Loyldrijgs06.326.7-34.0 pgMean Corpuscular HGB Conc 31.529.9-35.2 g/dLRed Cell Distribution Width13.011.0-15.0 %Platelet Ulkve714 150-450 10 3/uLMean Platelet Volume9.79.5-13.5 fLNeutrophils Percent Auto88.6 43.0-75.0 %Lymphocytes Percent Auto9.820.5-60.0 %Monocytes Percent Auto1.31.7- 12.0 %Eosinophils Percent Auto0.00.9-7.0 %Basophils Percent Auto0.00.2-2.0 % Immature Granulocytes Pct Auto0.30.0-0.5 %Neutrophils Absolute Auto6.61.4-6.5 10 3/uLLymphocytes Absolute Auto0.71.2-3.8 10 3/uLMonocytes Absolute Auto0.10.3-0.8 10 3/uLEosinophils Absolute Auto0.00.0-0.7 10 3/uLBasophils Absolute Auto0.00.0- 0.1 10 3/uLImmature Granulocytes Abs Auto0.020.00-0.03 10 3/uLPerforming Lab:see noteML - [facility] LBUA RANDOM W or MICROSCOPIC Reviewed date:02/20/2025 08:01:49 PM Interpretation: Performing Lab: Notes/Report: [facility] ,Color UrineLT. YELLOWYELLOWClarity UrineCLEARCLEARSpecific [place] Urine1.020 1.005-1.025pH Urine6.05.0-9.0Protein UrineNEGATIVENEG/TRACE mg/dLGlucose Urine UANEGATIVENEGATIVE mg/dLBilirubin UrineNEGATIVENEGATIVEKetones UrineNEGATIVE NEGATIVE mg/dLBlood UrineNEGATIVENEGATIVENitrite UrineNEGATIVENEGATIVE Urobilinogen Urine0.20.2-1.0 EU/dLLeukocyte Esterase UrineNEGATIVENEGATIVEWBC UrineNONE SEENNONE SEEN #/HPFRBC Urine0-20-2 #/HPFBacteria UrineTRACENONE SEEN #/HPFMucus UrineSMALLNONE SEENSquamous Epithelial Cell UrineRARENONE/RARE #/LPF Crystals Seen?None SeenNone Seen #/HPFCast Seen?NONE SEENNONE SEEN #/LPFUrine Culture IndicatedNOPerforming Lab:see note - [facility] LBBlood Culture 2 Reviewed date:02/25/2025 03:45:21 PM Interpretation: Performing Lab: Notes/Report: [facility] 2See Below For Report Blood Culture 2 NG5D NO GROWTH AT 5 DAYS.^NO GROWTH AT 5 DAYS. Performing Lab:see [facility] LBBlood Culture 1 Reviewed date:02/25/2025 03:45:21 PM Interpretation: Performing Lab: Notes/Report: [facility] ,Blood Culture 1See Below For Report Blood Culture 1 NG5D NO GROWTH AT 5 DAYS.^NO GROWTH AT 5 DAYS. Performing Lab:see [facility] LBCA echo doppler complete Reviewed date:12/29/2024 04:02:12 PM Interpretation: Performing Lab: Notes/Report: Source Facility: [place] [address] [place] [address] Cardiology Report Signed Patient: MARTHA APODACA MR#: [id number] : 1965 Acct:[id number] Age/Sex: 59 / F ADM Date: 12/26/24 Loc: CARD Attending Dr: Darryl Goode NP Ordering Physician: Darryl Goode NP Date of Service: 12/26/24 Procedure(s): CA echo doppler complete Accession Number(s): [id number] cc: Tony Turner M.D.; Darryl Goode NP Patient Name: MARTHA APODACA MR#: [id number] : 1965 Exam Date: 12/26/2024 Ordering Doctor: [...] Dictated By: LUIS ARMANDO DIAS Signed By: 12/27/241724 DD/ 23 TD/TT: Car Usher:MARY Guthrie, reflex to culture Reviewed date:12/01/2024 08:34:44 PM Interpretation: Performing Lab: Notes/Report: [facility] ,Color UrineYELLOWYELLOWClarity UrineCLEARCLEARSpecific [place] Urine1.025 1.005-1.025pH Urine6.05.0-9.0Protein UrineTRACENEG/TRACE mg/dLGlucose Urine UA NEGATIVENEGATIVE mg/dLBilirubin UrineMODERATENEGATIVEKetones Urine>=80NEGATIVE mg/dLBlood UrineNEGATIVENEGATIVENitrite UrineNEGATIVENEGATIVEUrobilinogen Urine 1.00.2-1.0 EU/dLLeukocyte Esterase UrineNEGATIVENEGATIVEWBC Urine0-2NONE SEEN #/HPFRBC Urine0-20-2 #/HPFBacteria UrineTRACENONE SEEN #/HPFMucus UrineLARGENONE SEENSquamous Epithelial Cell UrineRARENONE/RARE #/LPFCrystals Seen?None Seen None Seen #/HPFCast Seen?NONE SEENNONE SEEN #/LPFUrine Culture IndicatedNO Performing Lab:see noteML - [facility] LBDRUG SCREEN RAPID (URINE) Reviewed date:12/01/2024 08:34:44 PM Interpretation: Performing Lab: Notes/Report: [facility] ,Cannabinoid Screen UrineNEGATIVENEGATIVEPhencyclidine Screen UrineNEGATIVE NEGATIVECocaine Screen UrineNEGATIVENEGATIVEMethamphetamines Screen Urine NEGATIVENEGATIVEOpiate Screen UrineNEGATIVENEGATIVEAmphetamine Screen Urine NEGATIVENEGATIVEBenzodiazepines Screen UrineNEGATIVENEGATIVETricyclic Antidepressant UrineNEGATIVENEGATIVEMethadone Screen UrineNEGATIVENEGATIVE Barbiturates Screen UrineNEGATIVENEGATIVEOxycodone Screen UrineNEGATIVENEGATIVE Buprenorphine Screen UrineNEGATIVENEGATIVE DRUG CLASS TEST SYSTEM CUT-OFF CONCENTRATIONS ARE FOLLOWS: AMP (Amphetamine): 500 ng/mL BAR (Barbiturates): 200 ng/mL BZO (Benzodiazepines): 150 ng/mL BUP (Buprenorphine): 10 ng/mL INDRA (Cocaine): 150 ng/mL mAMP (Methamphetamine): 500 ng/mL MTD (Methadone): 200 ng/mL OPI (Opiates): 100 ng/mL OXY (Oxycodone): 100 ng/mL PCP (Phencyclidine): 25 ng/mL THC (Cannabinoids): 50 ng/mL TCA (Trycyclic Antidepressants): 300 ng/mL Performing Lab:see noteML - [facility] LBUrine Culture - [facility] Reviewed date:12/01/2024 12:42:02 PM Interpretation: Performing Lab: Notes/Report: [facility] ,[facility] For [facility] Urine [facility] - FR Testing performed at [facility] O:ESCCOL Isolated Urine Culture - [facility] [place] Organism Comments Organism: 1.1 Antibiotic Interpretation VALENTE Status Urine Culture - [id number] [place] [address] Urine Culture - [facility] Testing performed at [facility] O:ESCCOL Isolated Urine Culture - [facility] Organism Comments Organism: 1.1 Antibiotic Interpretation VALENTE Status Urine Culture [facility] U[facility] Testing performed at [facility] O:ESCCOL Isolated Urine Culture - [facility] Organism Comments Organism: 1.1 Antibiotic Interpretation VALENTE Status Urine Culture - [facility]See [facility] For Report Urine [facility] - [facility] Testing performed at [facility] O:ESCCOL Isolated Urine Culture - [facility] Organism Comments Organism: 1.1 Antibiotic Interpretation VALENTE Status Urine Culture - [facility]<10,000 CFU/ML Urine Culture - [facility] Testing performed at [facility] O:ESCCOL Isolated Urine Culture - [facility] Organism Comments Organism: 1.1 Antibiotic Interpretation VALENTE Status Urine Culture - [facility]See [facility] For Report Urine [facility] - [facility] Testing performed at [facility] O:ESCCOL Isolated Urine Culture - [facility] Organism Comments Organism: 1.1 Antibiotic Interpretation VALENTE Status Urine Culture - FRMCAmikacin S F Urine Culture - [facility] Testing performed at [facility] O:ESCCOL Isolated Urine Culture - [facility] Organism Comments Organism: 1.1 Antibiotic Interpretation VALENTE Status Urine Culture - FRMCAmoxicillin/Clavulanate S F Urine Culture - [facility] Testing performed at [facility] O:ESCCOL Isolated Urine Culture - [facility] Organism Comments Organism: 1.1 Antibiotic Interpretation VALENTE Status Urine Culture - FRMCAmpicillin S F Urine Culture - [facility] Testing performed at [facility] O:ESCCOL Isolated Urine Culture - [facility] Organism Comments Organism: 1.1 Antibiotic Interpretation VALENTE Status Urine Culture - FRMCAztreonam S F Urine Culture - [facility] Testing performed at [facility] O:ESCCOL Isolated Urine Culture - [facility] Organism Comments Organism: 1.1 Antibiotic Interpretation VALENTE Status Urine Culture - FRMCCeftazidime S F Urine Culture - [facility] Testing performed at [facility] O:ESCCOL Isolated Urine Culture - [facility] Organism Comments Organism: 1.1 Antibiotic Interpretation VALENTE Status Urine Culture - FRMCCeftazidime/Avibactam S F Urine Culture - [facility] Testing performed at [facility] O:ESCCOL Isolated Urine Culture - [facility] Organism Comments Organism: 1.1 Antibiotic Interpretation VALENTE Status Urine Culture - FRMCCeftolozane/Tazobactam S F Urine Culture - [facility] Testing performed at [facility] O:ESCCOL Isolated Urine Culture - [facility] Organism Comments Organism: 1.1 Antibiotic Interpretation VALENTE Status Urine Culture - FRMCCiprofloxacin S F Urine Culture - [facility] Testing performed at [facility] O:ESCCOL Isolated Urine Culture - [facility] Organism Comments Organism: 1.1 Antibiotic Interpretation VALENTE Status Urine Culture - FRMCErtapenem S F Urine Culture - [facility] Testing performed at [facility] O:ESCCOL Isolated Urine Culture - [facility] Organism Comments Organism: 1.1 Antibiotic Interpretation VALENTE Status Urine Culture - FRMCGentamicin S F Urine Culture - [facility] Testing performed at [facility] O:ESCCOL Isolated Urine Culture - [facility] Organism Comments Organism: 1.1 Antibiotic Interpretation VALENTE Status Urine Culture - FRMCLevofloxacin S F Urine Culture - [facility] Testing performed at [facility] O:ESCCOL Isolated Urine Culture - [facility] Organism Comments Organism: 1.1 Antibiotic Interpretation VALENTE Status Urine Culture - FRMCMeropenem S F Urine Culture - [facility] Testing performed at [facility] O:ESCCOL Isolated Urine Culture - [facility] Organism Comments Organism: 1.1 Antibiotic Interpretation VALENTE Status Urine Culture - FRMCMeropenem/Vaborbactam S F Urine Culture - [facility] Testing performed at [facility] O:ESCCOL Isolated Urine Culture - [facility] Organism Comments Organism: 1.1 Antibiotic Interpretation VALENTE Status Urine Culture - [facility]MCNitrofurantoin S F Urine [facility] - [facility] Testing performed at [facility] O:ESCCOL Isolated Urine Culture - [facility] Organism Comments Organism: 1.1 Antibiotic Interpretation VALENTE Status Urine Culture - [facility]CTetracycline S F Urine Culture - [facility] Testing performed at [facility] O:ESCCOL Isolated Urine Culture - [facility] Organism Comments Organism: 1.1 Antibiotic Interpretation VALENTE Status Urine Culture - [facility]CTigecycline S F Urine Culture - [facility] Testing performed at [facility] O:ESCCOL Isolated Urine Culture - [facility] Organism Comments Organism: 1.1 Antibiotic Interpretation VALENTE Status Urine Culture - FRMCTobramycin S F Urine Culture - [facility] Testing performed at [facility] O:ESCCOL Isolated Urine Culture - [facility] Organism Comments Organism: 1.1 Antibiotic Interpretation VALENTE Status Urine Culture - FRMCAmpicillin/Sulbactam S F Urine Culture - [facility] Testing performed at [facility] O:ESCCOL Isolated Urine Culture - [facility] Organism Comments Organism: 1.1 Antibiotic Interpretation VALENTE Status Urine Culture - FR[facility]CCefazolin S F Urine Culture - [facility] Testing performed at [facility] O:ESCCOL Isolated Urine Culture - [facility] Organism Comments Organism: 1.1 Antibiotic Interpretation VALENTE Status Urine Culture - [facility]CCefepime S F Urine Culture - [facility] Testing performed at [facility] O:ESCCOL Isolated Urine Culture - [facility] Organism Comments Organism: 1.1 Antibiotic Interpretation VALENTE Status Urine Culture - FR[facility]CCeftriaxone S F Urine Culture - [facility] Testing performed at [facility] O:ESCCOL Isolated Urine Culture - [facility] Organism Comments Organism: 1.1 Antibiotic Interpretation VALENTE Status Urine Culture - [facility]CCefuroxime S F Urine Culture - [facility] Testing performed at [facility] O:ESCCOL Isolated Urine Culture - [facility] Organism Comments Organism: 1.1 Antibiotic Interpretation VALENTE Status Urine Culture - FRMCPiperacillin/Tazobactam S F Urine Culture - [facility] Testing performed at [facility] O:ESCCOL Isolated Urine Culture - [facility] Organism Comments Organism: 1.1 Antibiotic Interpretation VALENTE Status Urine Culture - FRMCTrimethoprim/Sulfa S F Urine Culture - [facility] Testing performed at [facility] O:ESCCOL Isolated Urine Culture - [facility] Organism Comments Organism: 1.1 Antibiotic Interpretation VALENTE Status Performing Lab:see note ML - [facility] LB SEE REPORT - Personnel Training Officer Id information not found for OBX-specific generating plant superintendent legend Manual Differential Reviewed date:11/26/2024 01:37:16 PM Interpretation: Performing Lab: Notes/Report: [facility] ,Segmented Neutrophils % Vwzcsa65.043.0-75.0Lymphocytes Percent Manual8.020.5- 60.0 %Monocytes Percent Manual7.01.7-12.0 %Eosinophils Percent Manual0.00.9-7.0 %Basophils Percent Manual0.00.2-2.0 %Segmented Neut Absolute Manual1.701.4-6.5 10 3/uLLymphocytes Absolute Manual0.161.20-3.80 10 3/uLMonocytes Absolute Manual 0.140.30-0.80 10 3/uLEosinophils Absolute Manual0.000.00-0.70 10 3/uLBasophils Abs Manual0.000.00-0.10 10 3/uLPerforming Lab:see noteML - [facility] LBUA RANDOM W or MICROSCOPIC Reviewed date:11/27/2024 12:23:08 PM Interpretation: Performing Lab: Notes/Report: [facility] ,Color UrineLT. YELLOWYELLOWClarity UrineCLEARCLEARSpecific [place] Urine1.015 1.005-1.025pH Urine5.05.0-9.0Protein UrineNEGATIVENEG/TRACE mg/dLGlucose Urine UANEGATIVENEGATIVE mg/dLBilirubin UrineNEGATIVENEGATIVEKetones UrineNEGATIVE NEGATIVE mg/dLBlood UrineTRACE-INEGATIVENitrite UrineNEGATIVENEGATIVE Urobilinogen Urine0.20.2-1.0 EU/dLLeukocyte Esterase UrineNEGATIVENEGATIVEWBC UrineNONE SEENNONE SEEN #/HPFRBC Urine0-20-2 #/HPFBacteria UrineNONE SEENNONE SEEN #/HPFMucus UrineNONE SEENNONE SEENSquamous Epithelial Cell UrineRARE NONE/RARE #/LPFCrystals Seen?None SeenNone Seen #/HPFCast Seen?NONE SEENNONE SEEN #/LPFUrine Culture IndicatedALREADY ORDEREDPerforming Lab:see noteML - [facility] LBPROF 14(COMP METB) Reviewed date:11/26/2024 01:37:16 PM Interpretation: Performing Lab: Notes/Report: [facility] ,Yzfkjg611174-759 mmol/LPotassium4.13.5-5.1 mmol/OLvxjqssg79285-664 mmol/LCarbon Edavcmv32.421.0-32.0 mmol/LAnion Gap12.7Jedjwpg90198-894 mg/dLBlood Urea Qtrkmojy59.07.0-18.0 mg/dLCreatinine1.000.55-1.02 mg/dLEstimated GFR ( Raya>60>=60 mL/min/1.73m 2Estimated GFR (Non- Ame57>=60 mL/min/1.73m 2 BUN Creatinine Ratio17.4Iwzvxxl4.68.5-10.1 mg/dLBilirubin Total0.20.2-1.0 mg/dL Aspartate Amino Jtddbfcksnr7880-08 U/LAlanine Tdeabyoeravvbjjz4627-75 U/L Alkaline Dpccclqdgyy2410-474 U/LTotal Protein5.96.4-8.2 g/dLAlbumin Level2.83.4- 5.0 g/dLGlobulin3.1Albumin Globulin Ratio0.9Performing Lab:see noteML - [facility] Reviewed date:11/26/2024 01:37:16 PM Interpretation: Performing Lab: Notes/Report: [facility] ,White Blood Count2.04.0-11.0 10 3/uLRed Blood Count4.524.20-5.40 10 6/uL Bupaniuris97.812.0-16.0 g/lANbnoksiprt58.636.0-48.0 %Mean Corpuscular Hgyedu71.8 81.0-99.0 fLMean Corpuscular Wgrghyfibr51.326.7-34.0 pgMean Corpuscular HGB Conc 31.529.9-35.2 g/dLRed Cell Distribution Width13.411.0-15.0 %Platelet Ghque497 150-450 10 3/uLMean Platelet Volume9.59.5-13.5 fLPerforming Lab:see noteML - [facility] Reviewed date:11/25/2024 01:56:15 PM Interpretation: Performing Lab: Notes/Report: [facility] ,White Blood Count3.74.0-11.0 10 3/uLRed Blood Count4.874.20-5.40 10 6/uL Edbwzxxqku52.812.0-16.0 g/gLKaomjihdnt26.436.0-48.0 %Mean Corpuscular Lbycvo53.1 81.0-99.0 fLMean Corpuscular Blboontxdd29.326.7-34.0 pgMean Corpuscular HGB Conc 32.529.9-35.2 g/dLRed Cell Distribution Width13.511.0-15.0 %Platelet Mpxfi417 150-450 10 3/uLMean Platelet Spbbqn35.79.5-13.5 fLNeutrophils Percent Auto77.1 43.0-75.0 %Lymphocytes Percent Auto14.020.5-60.0 %Monocytes Percent Auto8.61.7- 12.0 %Eosinophils Percent Auto0.00.9-7.0 %Basophils Percent Auto0.00.2-2.0 % Immature Granulocytes Pct Auto0.30.0-0.5 %Neutrophils Absolute Auto2.91.4-6.5 10 3/uLLymphocytes Absolute Auto0.51.2-3.8 10 3/uLMonocytes Absolute Auto0.30.3- 0.8 10 3/uLEosinophils Absolute Auto0.00.0-0.7 10 3/uLBasophils Absolute Auto0.0 0.0-0.1 10 3/uLImmature Granulocytes Abs Auto0.010.00-0.03 10 3/uLPerforming Lab:see noteML - [facility] LBPROF 14(COMP METB) Reviewed date:07/22/2024 08:14:59 PM Interpretation: Performing Lab: Notes/Report: [facility] ,Wnzdvu736167-633 mmol/LPotassium3.43.5-5.1 mmol/XHhzkcpvk90872-196 mmol/LCarbon Jkdxfil82.721.0-32.0 mmol/LAnion Gap10.6Djzzove52121-528 mg/dLBlood Urea Tljcvexf24.07.0-18.0 mg/dLCreatinine0.970.55-1.02 mg/dLEstimated GFR ( Raya>60>=60 mL/min/1.73m 2Estimated GFR (Non- Ame59>=60 mL/min/1.73m 2 BUN Creatinine Ratio14.5Wdovkci4.78.5-10.1 mg/dLBilirubin Total0.20.2-1.0 mg/dL Aspartate Amino Yfauqoarizm0802-52 U/LAlanine Inherqyycaqnflsj8545-28 U/L Alkaline Ddaddciewhd4207-645 U/LTotal Protein6.06.4-8.2 g/dLAlbumin Level2.73.4- 5.0 g/dLGlobulin3.3Albumin Globulin Ratio0.8Performing Lab:see noteML - [facility] LBCBC AUTO DIFF Reviewed date:07/22/2024 08:14:59 PM Interpretation: Performing Lab: Notes/Report: [facility] ,White Blood Count3.24.0-11.0 10 3/uLRed Blood Count4.284.20-5.40 10 6/uL Rpwjcxaxyu68.512.0-16.0 g/kWIrfyktoyxh38.136.0-48.0 %Mean Corpuscular Mycpfw26.0 81.0-99.0 fLMean Corpuscular Inlaoadeoc75.226.7-34.0 pgMean Corpuscular HGB Conc 32.829.9-35.2 g/dLRed Cell Distribution Width13.311.0-15.0 %Platelet Vuayx046 150-450 10 3/uLMean Platelet Volume9.39.5-13.5 fLNeutrophils Percent Auto63.3 43.0-75.0 %Lymphocytes Percent Auto28.420.5-60.0 %Monocytes Percent Auto8.31.7- 12.0 %Eosinophils Percent Auto0.00.9-7.0 %Basophils Percent Auto0.00.2-2.0 % Immature Granulocytes Pct Auto0.00.0-0.5 %Neutrophils Absolute Auto2.11.4-6.5 10 3/uLLymphocytes Absolute Auto0.91.2-3.8 10 3/uLMonocytes Absolute Auto0.30.3- 0.8 10 3/uLEosinophils Absolute Auto0.00.0-0.7 10 3/uLBasophils Absolute Auto0.0 0.0-0.1 10 3/uLImmature Granulocytes Abs Auto0.000.00-0.03 10 3/uLPerforming Lab:see noteML - [facility] LBCOVID-19, Flu A+B IH Reviewed date:11/25/2024 01:56:15 PM Interpretation: Performing Lab: Notes/Report: COVIDnegFLU AnegFLU BnegControlpresent Reason For Referral No Information Medications Medication SIG (Take, Route, Frequency, Duration) Notes Start Date End Date Status CeleXA 20 MG 1 tablet Orally Once a day ActiveSimvastatin 20 mgTAKE 1 TABLET BY MOUTH IN THE EVENING; Duration: 90Active Carafate 1 GM1 tablet on an empty stomach Orally Twice a dayActiveOndansetron 4 MG1 tablet on the tongue and allow to dissolve Orally qid; Duration: 5 days 0709WldatgSuloyhrizw-EPLR-Dudajavr 50-325-40 MG1 capsule as needed Orally every 4 hrs01/11/2024ctiveNebulizer Mask and Tubing-Adult -ActiveBudesonide 0.5 MG/2ML 2mL Inhalation Twice a day; Duration: 30 days Rinse after use 02/15/2023ctiveMiraLax 17 GM1 packet mixed with 8 ounces of fluid Orally Once a day; Duration: 30 days02/15/2023ctiveAlbuterol Sulfate HFA 108 (90 Base) MCG/ACT2 puffs as needed for SOB Inhalation every 4 hrs; Duration: 30 days Dispense 1 inhalerActiveAlbuterol Sulfate (2.5 MG/3ML) 0.083%3mL Inhalation QID; Duration: 30 daysActiveFosamax 70 MG1 tablet 30 minutes before the first food, beverage or medicine of the day with plain water Orally;Duration: 30 days 06/26/2024ctiveCyclobenzaprine HCl 10 MG1 tablet Orally bid; Duration: 30 days 12/11/2024tiveTriamcinolone Acetonide 0.1 %1 application Externally Two times a Week04/26/2024ctiveCyanocobalamin 1000 MCG1 tablet Orally Once a dayActive Singulair 10 MG1 tablet Orally Once a dayActiveVitamin D3 50 MCG (2000 UT)TAKE 1 CAPSULE BY MOUTH ONCE DAILY; Duration: 90ActiveMeclizine HCl 25 MG1 tablet as needed Orally QID02/08/2024ctiveAllergy Relief 10 mgTAKE 1 TABLET BY MOUTH ONCE DAILY; Duration: 90ActiveLevothyroxine Sodium 125 mcgTAKE 1 TABLET BY MOUTH IN THE MORNING ON AN EMPTY STOMACH; Duration: 90ActiveAlendronate Sodium 70 MG1 tablet 30 minutes before the first food, beverage or medicine of the day with plain water OrallyActiveLansoprazole 30 mgTAKE 1 CAPSULE BY MOUTH ONCE DAILY BEFORE a meal; Duration: 90ActiveLaMICtal 25 MG1 tablet OrallyActive Social History Tobacco Use: Social History Observation Description Date Details (start date - stop date) Never Smoker NA - NA Tobacco Control (Standard) Question Answer Notes Tobacco use: Nonsmoker AUDIT-C (Standard) Question Answer Notes Did you have a drink containing alcohol in the p ast year? 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)ActiveconfirmedProblemChronic respiratory failure (35661395)Chronic respiratory failure with hypoxia (J96.11)Active confirmedProblemNausea (544355754)Nausea (R11.0)ActiveconfirmedProblemWeakness (10770548)Weakness (R53.1)ActiveconfirmedProblemClosed fracture of one rib (91019903)Fracture of one rib, right side, initial encounter for closed fracture (S22.31XA)ActiveconfirmedProblemNondisplaced fracture of base of other metacarpal bone, initial encounter for closed fracture (S62.348A)Activeconfirmed ProblemClosed fracture of patella (50743211)Unspecified fracture of right patella, initial encounter for closed fracture (S82.001A)ActiveconfirmedProblem Late effect of fracture of lower extremities (52830096)Nondisplaced fracture of fifth metatarsal bone, right foot, sequela (S92.354S)ActiveconfirmedProblemOther specified effects of reduced temperature, initial encounter (T69.8XXA)Active confirmedProblemEnvironmental tobacco smoke exposure (802894313)Contact with and (suspected) exposure to environmental tobacco smoke (acute) (chronic) (Z77.22) ActiveconfirmedProblemPathological fracture (664445738)Personal history of (healed) osteoporosis fracture (Z87.310)ActiveconfirmedProblemAcquired absence (67205969)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)ActiveconfirmedProblemFatigue (38888592)Fatigue (R53.83)ActiveconfirmedProblemOnychomycosis caused by dermatophyte (910970372)OM (onychomycosis) (B35.1)ActiveconfirmedProblem Hyperlipidemia (88074465)Hyperlipidemia (E78.5)ActiveconfirmedProblemChronic obstructive pulmonary disease (84557858)Chronic obstructive pulmonary disease (J44.9)ActiveconfirmedProblemAsthma (795644911)Asthma (J45.909)Activeconfirmed ProblemGastroesophageal reflux disease (490279866)GERD (gastroesophageal reflux disease) (K21.9)ActiveconfirmedProblemAnxiety (07105618)Anxiety (F41.9)Active confirmedProblemPneumonia (382427031)Pneumonia (J18.9)ActiveconfirmedProblem Hypothyroid (37140127)Hypothyroid (E03.9)ActiveconfirmedProblemBradycardia (18265573)Bradycardia (R00.1)ActiveconfirmedProblemDepression (052521437) Depression (F32.9)ActiveconfirmedProblemUrinary frequency (512325765)Urinary frequency (R35.0)ActiveconfirmedProblemVertigo (731142314)Vertigo (R42)Active confirmedProblemUrinary incontinence (087979221)Urinary incontinence (R32)Active confirmedProblemDizziness (643982676)Dizziness (R42)ActiveconfirmedProblem Vitamin D deficiency (21372753)Vitamin D deficiency (E55.9)Activeconfirmed ProblemMigraine (80181860)Migraine (G43.909)ActiveconfirmedProblemHypotension (52297327)Hypotension (I95.9)ActiveconfirmedProblemLumbar radiculopathy (024484889)Lumbar radiculopathy (M54.16)ActiveconfirmedProblemBronchitis (40585732)Bronchitis (J40)ActiveconfirmedProblemPain in limb (91554677)Foot pain, left (M79.672)ActiveconfirmedProblemAcute sinusitis (05437167)Acute sinusitis (J01.90)ActiveconfirmedProblemHearing loss (92566914)Hearing loss (H91.90)ActiveconfirmedProblemColitis (22435736)Colitis (K52.9)Activeconfirmed ProblemOsteoporosis (72431586)Osteoporosis (M81.0)ActiveconfirmedProblemFever (151988961)Fever (R50.9)ActiveconfirmedProblemAcquired hypothyroidism (825996406)Acquired hypothyroidism (E03.9)ActiveconfirmedProblemCellulitis (622602495)Cellulitis (L03.90)ActiveconfirmedProblemInterstitial lung disease (104943008)Interstitial lung disease (J84.9)ActiveconfirmedProblemContact dermatitis (06748319)Contact dermatitis (L25.9)ActiveconfirmedProblemBlood in urine (38107244)Blood in urine (R31.9)ActiveconfirmedProblemGastroenteritis (38449180)Gastroenteritis (K52.9)ActiveconfirmedProblemNeutropenia (495856413) Neutropenia (D70.9)ActiveconfirmedProblemMenieres disease (85999347)Meniere disease, bilateral (H81.03)ActiveconfirmedProblemBird-fanciers' lung (11062899) Catalino hypersensitivity pneumonitis (J67.2)ActiveconfirmedVATS 08/10/2022: Hypersensitivity pneumonitisProblemAcute bronchiolitis (8567403)Acute bronchiolitis (J21.9)ActiveconfirmedProblemFinger laceration (S61.219A)Active confirmedProblemClosed fracture of patella (89431130)Patellar fracture (S82.009A)ActiveconfirmedProblemChronic obstructive pulmonary disease (89594732) Advanced COPD (J44.9)ActiveconfirmedProblemGastro-esophageal reflux disease (433866463)Gastro-esophageal reflux disease (K21.9)ActiveconfirmedProblem Infection of toenail (02198946977795686)Infection of toenail (L03.039)Active confirmedProblemChronic ulcerative pancolitis (388052693)Pancolitis (K51.00) ActiveconfirmedProblemSkin sensation disturbance (25929992)Hand paresthesia (R20.2)ActiveconfirmedProblemExposure to second hand tobacco smoke (event) (69635689810418955)Secondhand smoke exposure (Z77.22)ActiveconfirmedProblem Hypercholesterolemia (73994158)Hypercholesterolemia (E78.00)Activeconfirmed ProblemMixed anxiety and depressive disorder (080691848)Anxiety and depression (F41.8)ActiveconfirmedProblemSecondary pulmonary hypertension (53722515)Other secondary pulmonary hypertension (I27.29)ActiveconfirmedEcho 09/06/2023; RVSP 39mmHgProblemPulmonary hypertension (67364841)Pulmonary hypertension (I27.20) ActiveconfirmedProblemClostridium difficile colitis (disorder) (627095497)C. difficile colitis (A04.72)ActiveconfirmedProblemHeadache (17775709)Headache, unspecified (R51.9)ActiveconfirmedProblemDisease caused by Severe acute respiratory syndrome coronavirus 2 (disorder) (249580378)COVID (U07.1)Active confirmedProblemLow back pain (finding) (177817411)Low back pain at multiple sites (M54.50)ActiveconfirmedProblemCough (finding) (73129143)Other cough (R05.8)ActiveconfirmedProblemDepression (091959090)Depression (F32.A)Active confirmed Vital Signs Heart Rate 91 /min 03/06/2025 Ggwoxlybfxd96.0 degrees Rkjbubqtlj79/18/9127Lsueclnr54 %03/06/2025lood pressure arobteazk86 mm Hg06/11/20259946Kgnesy10 in06/11/2025lood pressure mm Hg06/11/20253619Poxiso264.2 lbs06/11/2025BMI19.57 kg/m206/11/2025 Procedures Procedure Date Ordered Date Performed Result Body Sit e Nebulizer Tx 02/19/2025 N/ASix minute walk03/06/2025N/A Encounters Encounter Location Date Provider Diagnosis [facility] [address] [place] [address] 12/10/2024 Thomas Izquierdo Bronchiectasis, uncomplicated J47.9 ; Catalino hypersensitivity pneumonitis J67.2 ; Chronic respiratory failure with hypoxia J96.11 ; Other secondary pulmonary hypertension I27.29 ; Centrilobular emphysema J43.2 and Secondhand smoke exposure Z77.22 [address] [place] [address] 08/05/2024 Zion Hoy Centrilobular emphys dano J43.2 and COVID U07.1 [address] [place] [address] 09/02/2024 Zion Hoy Cough R05.9 ; Acute non-recurrent sinusitis, unspecified location J01.90 and Nasal congestion R09.81 [address] [place] [address] 11/25/2024 Zion Hoy [address] [place] [address] 11/28/2024Doug HoyAcute bronchitis, unspecified organism J20.[address] [place] [address]/09/2025Doug Hoy Centrilobular emphysema J43.2 ; Low back pain at multiple sites M54.50 ; Anxiety F41.9 and Depression F32.AB[address] [place] [address]/Doug HoySOB (shortness of breath) R06.[address] [address]/01/2025 Zion HoyCentrilobular emphysema J43.2BL[address] [place] [address]/Doug HoyCentrilobular emphysema J43.2 ; Bradycardia R00.1 and Hypotension I95.9B[facility] [place] [address]/07/2025DoF[facility] JacksonRmger laceration S61.219ABChildren[facility] [place] [address]/[facility] [place] [address]/09/2025[facility] [place] [address]/09/2025Do[facility] [place] [address]/[facility] [place] [address]/01/2025 Zion yChronic respiratory failure with hypoxia J96.11PSanford [facility] [place] [facility] [place] [address]/[facility] [place] [address]/ [facility] [place] [address]/Do[facility] [place] [address]/Do[facility] [place] [place] [address]/[facility] Assessments Encounter Date Diagnosis (ICD Code) Assessment Notes Treatment Notes Treatment Clinical Notes Section Notes 12/10/2024 Bronchiectasis, uncomplicated (I CD-10 - J47.9) Her breathing is doing fairly well considering she is recovering from hospitalization for influenzaA ~2 weeks ago. She is getting by with budesonide nebs along with albuterol nebs twice daily - not requiring additional doses. Not having excessive sputum production. Continue with current plan of care. Will have her return in 6 months so we can monitor her respiratory status more slowly as she is at risk of being lost to follow-up. 4Centrilobular emphysema (ICD-10 - J43.2)4COVID (ICD-10 - U07.1)4Cough (ICD-10 - R05.9)5Acute bronchitis, unspecified organism (ICD-10 - J20.9)Rest and drink more liquids, especially water. You may use a humidifier or vaporizer to help keep the drainage moist. Rzfo-qvt-wmojgzh Nasal Saline may help the stuffy and runny nose. Use Ibuprofen and or Tylenol as needed for fever, chills, body aches or pain. Children 5 years old should not be given ssht-tod-akdkbfn cough and cold medications such as guaifenesin and dextromethorphan. If you're over age 5, you may try isuy-sox-gfgdxpj cold medications such as guaifenesin and dextromethorphan, or multi-symptom cold reliever such as Dayquil to help reduce the symptoms. Antibiotics have been pre scribed. You should take these until completed and follow the directions. Antibiotics can sometimescause upset stomach, and in rare cases, serious allergic reactions or serious gastrointestinal problems. If you start having severe abdominal pain, severe vomiting, or bloody diarrhea, you should be r eevaluated by your physician or urgent care immediately. Follow up with your Primary Care Provider or return to clinic if symptoms do not improve within 3-5 days. If you develop severe symptoms such as shortness of breath, repeated vomiting, coughing up blood, or chest pain you should go to the emergency room or call [phone] emphysema (ICD-10 - J43.2)12/11/2024Low back pain at multiple sites (ICD-10 - M54.50)defers on PT- worse as day ges along 02/19/2025SOB (shortness of breath) (ICD-10 - R06.02)5Centrilobular emphysema (ICD-10 - J43.2)04/18/2025entrilobular emphysema (ICD-10 - J43.2) tatyana pereiraer her - some cough - no change in chronic dyspnea- - restarting epgmzhounq38/18/2025Bradycardia (ICD-10 - R00.1)06/11/2025Finger laceration (ICD-10 - S61.219A)at edge of needeing tetanus -0 wants to hold off03/06/2025 Chronic respiratory failure with hypoxia (ICD-10 - J96.11)04/18/2025Hypotension (ICD-10 - I95.9)4Acute non-recurrent sinusitis, unspecified location (ICD-10 - J01.90)Rest and drink more liquids, especially water. You may use a humidifier or vaporizer to help keep the drainage moist. Bakh-kzd-mbjkylt Nasal Saline may help the stuffy and runny nose. Use Ibuprofen and or Tylenol as needed for fever, chills, body aches or pain. Children 5 years old should not be given scok-wuj-xlsafwb cough and cold medications such as guaifenesin and dextromethorphan. If you're over age 5, you may try occl-fdg-izkmylm cold medications such as guaifenesin and dextromethorphan, or multi-symptom cold reliever such as Dayquil to help reduce the symptoms. Antibiotics have been pre scribed. You should take these until completed and follow the directions. Antibiotics can sometimescause upset stomach, and in rare cases, serious allergic reactions or serious gastrointestinal problems. If you start having severe abdominal pain, severe vomiting, or bloody diarrhea, you should be r eevaluated by your physician or urgent care immediately. 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 She is recovering from influenza A pneumonia, so getting HRCT may be grossly abnormal. Holding off on repeat imaging at this time. 5Chronic respiratory failure with hypoxia (ICD-10 - J96.11) [...] to be retested in order to qualify. 09/02/2024Nasal congestion (ICD-10 - R09.81)12/11/2024Depression (ICD-10 - F32.A)12/10/2024Other secondary pulmonary hypertension (ICD-10 - I27.29)Echo 09/06/2023; RVSP 39mmHg Mild elevation of RVSP @ 39mmHg. Likely group III associated with pulmonary issues. 12/10/2024entrilobular emphysema (ICD-10 - J43.2) Previously on Dulera and Spiriva, but had no benefit. More compliant with budesonide and albuterol nebs now. 12/10/2024Secondhand smoke exposure (ICD-10 - Z77.22) Plan Of Treatment Pending Test Test Name Order Date Six minute walk 03/06/2025 CT Knee LT without & with contrast 06/26 MRI Brain w/wo contrast * 12/29/2023 Nebulizer Tx 02/19/2025 CBC AUTO DIFF 07/22/2025 MAGNESIUM 07/22/2025 PROF 14(COMP METB) 07/22/2025 THYROID PROFILE WITH TSH 06/26/2024 VIT B12 AND FOLATE 06/26/2024 VITAMIN B12 06/26/2024 XR LSPINE MIN 4 VIEWS 12/11/2024 XR chest 1V 07/22/2025 XR pelvis min 3V 12/11/2024 Insurance Providers Payer Name Payer Address Payer Phone Subscriber Number Group Number Insured Name Patient Relationship to Insured Coverage Start Date Coverage End Date [employer] [place] [employer] [address] KEYLA STEVERAPHAEL CASTELLANOS [address] [id number] Fidelina Apodaca - patient is the [id number] 2017 Medications Administered Medication Instructions Date of Administration Dosage Notes Kenalog-40 460 mg Medical (General) History Medical History History [...] smoke exposure Z77.22 Surgical History Surgery Date(Month/Year) permanent pacemaker 03/2020 cholecystectomy hysterectomytonsillectomy and adenoidectomyBronchoscopy-Chronic Inflammation with Interstitial Iwodfgwf23/03/0975OCR6/2018Thoracosopy-RUL & RLL110/10/2021 Hospitalization History Reason Date(Month/Year) COPD, bronchitis, pneumonia 01/2025 Influenza A 11/2024 covid 08/25 COPD Exacerbation-TBH 01/03/2023 dehydration 07/2019 cough 11/2020 copd 12/2021
--- OUTSIDE RECORDS SUMMARY | 2025-07-22 14:23 | XMS_ITS | Clinical Summary ---
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 Name Role Phone Paulo Turner MD Primary Care Provider [phone] Allergies Active AllergyReactionsCriticalityNoted SiegSqnnxvwjWshfpsuamahvyzhq75/26/2023 Sulfa (Sulfonamide Antibiotics)04/26/2023 Medications MedicationSigDispense QuantityRefillsLast FilledStart DateEnd DateStatus loratadine (Claritin) 10 mg tablet Take 10 mg by mouth in the morning.02/27/2023ctive lansoprazole (Prevacid) [address] capsule 1 (one) time each day at the same time.Active levothyroxine (Synthroid, Levoxyl) 125 mcg tablet Take 125 mcg by mouth in the morning.02/27/2023ctive simvastatin (Zocor) 20 mg tablet Take 20 mg by mouth at bedtime.02/27/2023ctive cholecalciferol, vitamin D3, 50 mcg (2,000 unit) capsule 1 capsule 1 (one) time each day at the same time.Active buPROPion XL (Wellbutrin XL) 300 mg 24 hr tablet 1 (one) time each day at the same time.Active lamoTRIgine (LaMICtal) 25 mg tablet Take 2 tablets by mouth in the morning.02/21/2023ctive albuterol 90 mcg/actuation inhaler every 4 (four) hours.Active citalopram (CeleXA) 20 mg tablet Take 20 mg by mouth in the morning.Active Fosamax 70 mg tablet Pt takes on chpqmwk6706/26/2024ctive meclizine (Antivert) 25 mg tablet Take 25 mg by mouth if needed in the morning, at noon, in the evening, and at bedtime.Active budesonide-formoteroL (Symbicort) 80-4.5 mcg/actuation inhaler Indications:COPD exacerbation (CMS/HCC)Inhale 2 puffs in the morning and at bedtime. Rinse mouth with water after use to reduce aftertasteand incidence of candidiasis. Do not swallow. 1 each /5Active ondansetron ODT (Zofran-ODT) 4 mg disintegrating tablet Take 4 mg by mouth if needed.Discontinued(Stop Taking at Discharge) predniSONE (Deltasone) 20 mg tablet Indications:COPD exacerbation (CMS/HCC)Take 2 tablets (40 mg) by mouth in the morning for 2 doses. 4 tablet /ExpiredHospital, Clinic, or Other Facility Administered MedicationOrdered DoseRouteFrequencyStart DateEnd DateStatus albuterol 90 mcg/actuation inhaler 2 puff Indications:COPD exacerbation (CMS/HCC)2 puffinhlEvery 4 hours PRN1 Active Active Problems ProblemNoted DateDiagnosed DateCOPD cwkojiwnxzum66/14/2025 Assessment & Plan (07/15/2025 9:41 PM EDT): - Patient hypoxic upon arrival, 2 L nasal cannula placed, wean as able -Begin azithromycin x 3 days -Begin prednisone 40 mg oral x 5 days -Mucinex every 12 hours as needed -DuoNebs every 6 hours as needed Acute hypoxic respiratory nigdxny5107/15/2025 Assessment & Plan (07/15/2025 9:41 PM EDT): - Patient hypoxic upon arrival, 2 L nasal cannula placed, wean as able -Begin azithromycin x 3 days -Begin prednisone 40 mg oral x 5 days -Mucinex every 12 hours as needed -DuoNebs every 6 hours as needed Complete AV block07/15/2025 Assessment & Plan (07/15/2025 9:41 PM EDT): - S/p PPM Bipolar esgacunwyx50/14/2025 Assessment & Plan (07/15/2025 9:41 PM EDT): - Continue Lamictal, Celexa, Wellbutrin Acquired roevcwhhgntajh20/14/2025 Assessment & Plan (07/15/2025 9:41 PM EDT): - Continue levothyroxine Carpal tunnel syndrome, left02/03/2025arpal tunnel syndrome, right02/03/2025 Distal syeaymlzzzp43/05/9775Etfwzyhpohny00/05/2025Vitamin D aheyxfvopn46/05/2025 Finger stiffness, left10/22/2024Transient neurological fuhkpwhf64/12/2024 Unspecified severe protein-calorie ltqgqguibtzt75/04/7263Mxcbfcxme98/02/2024OE (dyspnea on exertion)05/03/2023 Assessment & Plan (05/03/2023 1:45 PM EDT): Will get echo and stress test Abdominal painonstipated3Dyspepsia OPD (chronic obstructive pulmonary disease) Assessment & Plan (05/03/2023 1:45 PM EDT): -on inhalers -stable -follow up with pcp Pacemaker Assessment & Plan (05/03/2023 1:46 PM EDT): - Biotronik dual-chamber PPM implanted [address] Weaver - normal device function and stable lead thresholds, device checks as scheduled Other hyperlipidemia Assessment & Plan (07/15/2025 9:41 PM EDT): - Continue simvastatin Assessment & Plan (05/03/2023 1:46 PM EDT): -CT statin Encounters DateTypeDepartmentCare FgtcIvoehirtust79/17/2025Orders Only [facility] at [facility] [address] [place] [address] Misty Lunsford MA Chronic obstructive pulmonary disease with acute exacerbation (CMS/HCC) (Primary Dx)07/15/2025 2:46 PM EDT - 07/17/2025 7:10 PM EDTHospital Encounter [facility] [address] [place] [address] Florentino Solano DO Horani, Omar, MD Elsharnoby, Hadeer, MD COPD exacerbation (CMS/HCC) (Primary Dx); Acute hypoxic respiratory failure (CMS/HCC) Discharge Disposition: Home or Self Care (01)07/15/20255032Fizger76/04/2025 9:30 AM EDTAncillary Procedure [facility] [address] [place] [address] Adjustment and management of cardiac hhrwaqplf51/03/2025Orders Only [facility] [address] [place] [address] Chandrakant Alba MD from Last 3 Months Family History Medical HistoryRelationNameCommentsAlzheimer's diseaseFatherRelationNameStatus CommentsFatherDeceasedMotherAlive Social History Tobacco UseTypesPacks/DayYears UsedDateSmoking Tobacco: NeverSmokeless Tobacco: NeverAlcohol UseStandard Drinks/WeekCommentsNot Currently0 (1 standard drink = 0.6 oz pure alcohol)[facility] UtilitiesAnswerDate RecordedIn the past 12 months has the ADTELLIGENCE, Turpitude, oil, or water Evri threatened to shut off services in your [...] a week 07/15/2025How often do you attend scientology or synagogue services?More than 4 times per year07/15/2025Do you belong to any clubs or organizations such as scientology groups, unions, fraternal or athletic groups, or school groups?No07/15/2025How often do you attend meetings of the clubs or organizations you belong to?Never 07/15/2025re you , , , , never , or living with a partner?Never lnhlffm5507/15/2025UDIT-CAnswerDate RecordedQ1: How often do you have a [...] housing, medical care, and heating?Not hard at all07/15/2025Final[facility] [place] of Occupational Health - Occupational Stress QuestionnaireAnswerDate RecordedDo you feel stress - tense, restless, nervous, or anxious, or unable to sleep at night because yourmind is troubled all the time - these days?To some rmoddg5507/15/2025 TransportationAnswerDate RecordedIn the past 12 months, has [...] or living in a group home (including now)?No07/15/2025Hunger Vital SignAnswerDate RecordedWithin the past 12 months, you worried that your food would run out before you got the money to buymore.Never true07/15/2025Within the past 12 months, the food you bought just didn't last and you didn't have money to get more.Never true 07/15/2025CommentsNoSex and Gender InformationValueDate RecordedSex Assigned at BdtkeDdybnu03/12/2025 8:46 PM EDTLegal FcuUfqcle61/30/2022 12:25 AM EDTGender YypebhwvTibwaq96/12/2025 8:46 PM EDTSexual OrientationDon't know 05/13/2025 8:46 PM EDT Last Filed Vital Signs Vital SignReadingTime TakenCommentsBlood Qohmjyxe529/6707/17/2025 1:50 PM EDT Hrqfq1185/16/2025 1:50 PM AQIGixufzuzwzq34.4 ??C (99.3 ??F)07/17/2025 1:50 PM EDTRespiratory Ejgc6748 1:50 PM EDTOxygen Eennnfikwg85%07/17/2025 1:50 PM EDTInhaled Oxygen Concentration--Iazixb89.9 kg (105 lb 9.6 oz)07/17/2025 4:03 AM XBNTjlnwd923.4 cm (5')07/15/2025 2:54 PM EDTBody Mass Index20.6207/15/2025 2:54 PM EDT Plan of Treatment DateTypeDepartmentCare Team (Latest Contact Info)Knyyktkjhvu07/19/2025 1:00 PM ESTAppointment [facility] [address] [facility] 3rd [place] [address] 09/08/2025 2:00 PM ESTConsult [facility] [address] [place] [phone] Syed Palafox MD [address] [facility] [address] [facility] [address] Health MaintenanceDue DateLast DoneCommentsCT Kglmatfxlfgs1964Colonoscopy 1964Colorectal Cancer Kiyqjckni1964FIT-DNA1964FIT1964 FOBT1964 6691Gnypjwxjcflfu1964Depression Nordaihlx16/19/1976Pneumococcal Vaccine: Pediatrics (0 to 5 Years) and At-Risk Patients (6 to 64 Years) (1 of 2 - PCV)1983Pap Smear1985Adult Yezxsoa0908/20/1986Cervical Cancer Grmtxjhok30/19/1994HPV/Baixkx2908/20/19947859Ytnhnkcdd30/19/2004Zoster Vaccines (1 of 2)2014COVID-19 Vaccine ( - season)2025Influenza Vaccine (#1)2025HIB VaccinesAged OutNo longer eligible based on patient's age to complete this topicHPV VaccinesAged OutNo longer eligible based on patient's age to complete this topicIPV VaccinesAged OutNo longer eligible based on patient's age to complete this topicMeningococcal B VaccineAged OutNo longer eligible based on patient's age to complete this topicMeningococcal VaccineAged OutNo longer eligible based on patient's age to complete this topicRotavirus Vaccines Aged OutNo longer eligible based on patient's age to complete this topic Procedures Procedure NamePriorityDate/TimeAssociated DiagnosisCommentsMAGNESIUMPending Dbqcgkzyu73/16/2025 5:59 AM EDT BASIC METABOLIC PANELPending Opudwytbf39/16/2025 5:59 AM EDT CBCPending Gvfpimmzp09/16/2025 5:59 AM EDT RESPIRATORY ASSESS AND TREAT ZAUCLMITJnmsonh73/15/2025 8:00 AM EDTCBCRoutine 07/16/2025 3:48 AM EDT BASIC METABOLIC MDAMXYzlrqlu75/15/2025 3:48 AM EDT RESPIRATORY ASSESS AND TREAT DPSORKZBNzpwkgc54/14/2025 7:05 PM EDTRESPIRATORY ASSESS AND TREAT CQFOILQGWkxihsg41/14/2025 7:05 PM EDTD-DIMER, QUANTITATIVESTAT 07/15/2025 4:31 PM EDT POCT COVID FLU ANTIGEN AHJWPVVE22/14/2025 4:21 PM EDT HIGH SENSITIVITY TROPONIN ISTAT1 4:21 PM EDT XR CHEST 2 CHXCNUPUN45/14/2025 3:32 PM EDT CBC WITH AUTO DFYKSIHJYKQCYHKO26/14/2025 3:21 PM EDT HIGH SENSITIVITY TROPONIN ISTAT1 3:21 PM EDT WFDVGNNLPOCZQ90/14/2025 3:21 PM EDT BASIC METABOLIC EXTVQHFZI15/14/2025 3:21 PM EDT CBC AND ZGSXZUWYDVLJJLGS03/14/2025 3:21 PM EDT CARDIAC DEVICE CHECK CHECK - KWXPUUAbbheng24/12/2025 1:54 PM EDT Adjustment and management of cardiac pacemaker CARDIAC DEVICE CHECK - REMOTE - NNFSTUJCIHlqupfx16/03/2025 12:00 AM EDTfrom Last 3 Months Results * (ABNORMAL) CBC (07/17/2025 5:59 AM EDT) Only the most recent of2 resultswithin the time period is included. ComponentValueRef RangeTest MethodAnalysis TimePerformed AtPathologist Signature Auto WBC5.574.00 - 10.60 10*3/uL07/17/2025 7:03 AM [facility] ([facility]) RBC4.203.80 - 5.00 10*6/uL07/17/2025 7:03 AM [facility] ([facility]) Fgjpemsrhm04.6(L)12.0 - 15.0 g/dL07/17/2025 7:03 AM [facility] ([facility])Bnuappmczi47.536.0 - 45.0 %07/17/2025 7:03 AM [facility] ([facility])MCV86.982.0 - 98.0 fL07/17/2025 7:03 AM [facility] ([facility])MCH 27.627.0 - 33.0 pg07/17/2025 7:03 AM [facility] ([facility])MCHC31.8(L) 32.0 - 35.0 g/dL07/17/2025 7:03 AM [facility] ([facility])RDW15.011.5 - 15.0 %07/17/2025 7:03 AM [facility] ([facility])Vewgnwttj031981 - 400 10*3/uL07/17/2025 7:03 AM [facility] ([facility])Specimen (Source) Anatomical Location / LateralityCollection Method / VolumeCollection Time Received TimeBloodVenous blood specimen / UnknownVenipuncture / Unknown 07/17/2025 5:59 AM EDT1 6:15 AM EDT Narrative Authorizing ProviderResult TypeResult StatusHadeer Mendy CHINCHILLA BLOOD ORDERABLESFinal ResultPerforming OrganizationAddressCity/State/ZIP CodePhone Number [facility] ([facility]) [address] [place] [address] * Magnesium (07/17/2025 5:59 AM EDT) Only the most recent of2 resultswithin the time period is included. ComponentValueRef RangeTest MethodAnalysis TimePerformed AtPathologist Signature Magnesium2.21.9 - 2.7 mg/dL07/17/2025 8:35 AM [facility] ([facility]) Specimen (Source)Anatomical Location / LateralityCollection Method / Volume Collection TimeReceived TimeBloodVenous blood specimen / UnknownVenipuncture / Vceryto4207/17/2025 5:59 AM EDT1 6:15 AM EDT Narrative Authorizing ProviderResult TypeResult StatusHadeer Mendy CHINCHILLA BLOOD ORDERABLESFinal ResultPerforming OrganizationAddressCity/State/ZIP CodePhone Number [facility] ([facility]) [address] [place] [address] * (ABNORMAL) Basic metabolic panel (07/17/2025 5:59 AM EDT) Only the most recent of3 resultswithin the time period is included. ComponentValueRef RangeTest MethodAnalysis TimePerformed AtPathologist Signature Bhfpuz252741 - 145 mmol/L1 6:39 AM [facility] ([facility]) Potassium3.4(L)3.5 - 5.1 mmol/L1 6:39 AM [facility] ([facility]) Cyhyizjj12729 - 107 mmol/L1 6:39 AM [facility] ([facility])CO227 21 - 31 mmol/L1 6:39 AM [facility] ([facility])ABR221 - 25 mg/dL 07/17/2025 6:39 AM [facility] ([facility])Creatinine0.730.60 - 1.20 mg/dL 07/17/2025 6:39 AM [facility] ([facility])Jkmdlji530(H)70 - 100 mg/dL 07/17/2025 6:39 AM [facility] ([facility])Calcium8.68.6 - 10.3 mg/dL 07/17/2025 6:39 AM [facility] ([facility])Anion Poi043 - 20 mmol/L 07/17/2025 6:39 AM [facility] ([facility])eGFR94.1>60.0 mL/min/1.73m*2 07/17/2025 6:39 AM [facility] ([facility])Comment:The [facility]???s estimated glomerular filtration rate (eGFR) will no longer include consideration of race in its calculation. The National Kid[employer] Foundation???s eGFR Task Force developed new recommendations for the estimation of the glomerular filtration rate in the [place] They recommend immediate implementation of the new equation refit without the race variable in all la boratories because the calculation does not include race. In addition to not including race in the calculation and reporting, it included diversity in its development, and has acceptable performance characteristics and potential consequences that do not disproportionately affect any one group of individuals. BUN/Creatinine Ratio27. 6:39 AM [facility])Specimen (Source)Anatomical Location / LateralityCollection Method / VolumeCollection TimeReceived TimeBloodVenous blood specimen / UnknownVenipuncture / Unknown 07/17/2025 5:59 AM EDT1 6:15 AM EDT Narrative Authorizing ProviderResult TypeResult StatusHakizzy CHINCHILLA BLOOD ORDERABLESFinal ResultPerforming OrganizationAddressCity/State/ZIP CodePhone Number [facility] ([facility]) [address] [place] [address] * (ABNORMAL) D-dimer, quantitative (07/15/2025 4:31 PM EDT)ComponentValueRef RangeTest MethodAnalysis TimePerformed AtPathologist SignatureD-Dimer, Quant (FEU)<0.27(L)0.27 - 0.49 mcg/mL FEU1 4:57 PM [facility] ([facility])Specimen (Source)Anatomical Location / LateralityCollection Method / VolumeCollection TimeReceived TimeBloodVenous blood specimen / Unknown Venipuncture / Pqxnrle3707/15/2025 4:31 PM EDT1 4:32 PM EDT Narrative [facility]) - 07/15/2025 4:57 PM EDT D-Dimer values of less than 0.50 ug/ml (FEU) are considered to be a negative predictor of thrombosis. However, the D-Dimer result should be used in conjunction with pretest probability and should not be used alone to diagnose a thrombotic event. Authorizing ProviderResult TypeResult StatusFlorentino RICHARDSON BLOOD ORDERABLESFinal ResultPerforming OrganizationAddressCity/State/ZIP CodePhone Number [facility] ([facility]) [address] [place] [address] * Repeat HS Troponin I (07/15/2025 4:21 PM EDT) Only the most recent of2 resultswithin the time period is included. ComponentValueRef RangeTest MethodAnalysis TimePerformed AtPathologist Signature High Sensitivity Troponin I<2<15 ng/L1 4:56 PM EDT[facility] ([facility])Specimen (Source)Anatomical Location / LateralityCollection Method / VolumeCollection TimeReceived TimeBloodVenous blood specimen / Unknown Venipuncture / Bjkscno6907/15/2025 4:21 PM EDT1 4:26 PM EDT Narrative Authorizing ProviderResult TypeResult StatusStephen Xiomara DOLAB BLOOD ORDERABLESFinal ResultPerforming OrganizationAddressCity/State/ZIP CodePhone Number [facility]) [address] [place] [address] * POCT Covid sars flu A flu B (07/15/2025 4:21 PM EDT)ComponentValueRef Range Test MethodAnalysis TimePerformed AtPathologist SignatureCovid POCNegativeFlu 1NegativeFlu 2NegativeLOT [id number] [id number] OKjamel Specimen (Source)Anatomical Location / LateralityCollection Method / Volume Collection TimeReceived NpnbLhoee50/14/2025 4:21 PM EDT Narrative Authorizing ProviderResult TypeResult StatusStephen Xiomara DOPOINT OF CARE TEST ENTER/EDIT ORDERABLESFinal Result * XR chest 2 views (07/15/2025 3:32 [...] focalconsolidation to support pneumonia. Electronically signed: Sena Yee. Authorizing ProviderResult TypeResult StatusStephen Xiomara DOIMG XR PROCEDURES Final Result * (ABNORMAL) CBC auto differential (07/15/2025 3:21 PM EDT)ComponentValueRef RangeTest MethodAnalysis TimePerformed AtPathologist SignatureAuto WBC4.014.00 - 10.60 10*3/uL07/15/2025 4:02 PM [facility] ([facility])RBC4.683.80 - 5.00 10*6/uL07/15/2025 4:02 PM [facility] ([facility])Oxkznzycbp76.912.0 - 15.0 g/dL07/15/2025 4:02 PM [facility] ([facility])Zhstnepcte48.936.0 - 45.0 %07/15/2025 4:02 PM [facility] ([facility])MCV85.382.0 - 98.0 fL 07/15/2025 4:02 PM [facility] ([facility])MCH27.627.0 - 33.0 pg 07/15/2025 4:02 PM [facility] ([facility])MCHC32.332.0 - 35.0 g/dL 07/15/2025 4:[address] [facility] ([facility])RDW14.611.5 - 15.0 %07/15/2025 4:02 PM [facility] ([facility])Neutrophils %56.240.0 - 72.0 %07/15/2025 4:02 PM [facility] ([facility])Lymphocytes %25.920.0 - 45.0 %07/15/2025 4:[address] [facility] ([facility])Monocytes %7.55.0 - 12.0 %07/15/2025 4:[address] [facility] ([facility])Eosinophils %10.0(H)0.0 - 6.0 %07/15/2025 4:02 [facility] ([facility])Basophils %0.20.0 - 1.0 %07/15/2025 4:02 [facility] ([facility])Neutrophils Absolute2.251.60 - 7.60 10*3/uL 07/15/2025 4:02 PM [facility] ([facility])Lymphocytes Absolute1.04(L) 1.20 - 4.00 10*3/uL07/15/2025 4:02 PM [facility] ([facility])Monocytes Absolute0.300.10 - 1.00 10*3/uL07/15/2025 4:02 PM [facility])Eosinophils Absolute0.400.00 - 0.50 10*3/uL07/15/2025 4:02 PM [facility])Basophils Absolute0.010.00 - 0.20 10*3/uL07/15/2025 4:02 PM [facility])Xmgxxaksd838345 - 400 10*3/uL07/15/2025 4:02 PM [facility]nRBC %0.00 %07/15/2025 4:02 PM [facility]Immature Granulocytes %0.20.0 - 1.0 %07/15/2025 4:02 PM [facility]Immature Granulocytes Absolute0.010.00 - 0.20 10*3/uL07/15/2025 4:02 PM [facility] ([facility])Specimen (Source) Anatomical Location / LateralityCollection Method / VolumeCollection Time Received TimeBloodVenous blood specimen / UnknownVenipuncture / Unknown 07/15/2025 3:21 PM EDT1 3:43 PM EDT Narrative Authorizing ProviderResult TypeResult StatusStephen Xiomara DOLAB BLOOD ORDERABLESFinal ResultPerforming OrganizationAddressCity/State/ZIP CodePhone Number [facility] ([place]) [address] [place] [address] * CARDIAC DEVICE CHECK - REMOTE - PACEMAKER (05/13/2025 1:54 PM EDT)Specimen (Source)Anatomical Location / LateralityCollection Method / VolumeCollection TimeReceived Time Narrative Authorizing ProviderResult TypeResult StatusBlair Owen MDCV IMPLANTABLE CARDIAC DEVICE PROCEDURESFinal ResultPerforming OrganizationAddressCity/State/ZIP Code Phone Number [facility] * Cardiac device check - Remote pacemaker (05/04/2025 12:00 AM EDT)Anatomical RegionLateralityModalityOtherSpecimen (Source)Anatomical Location / Laterality Collection Method / VolumeCollection TimeReceived Time05/04/2025 Narrative Authorizing ProviderResult TypeResult StatusPaul Parth MDCV IMPLANTABLE CARDIAC DEVICE PROCEDURESFinal Result from Last 3 Months Insurance Advance Directives * Full Code (Latest Code Status on File) Date ActivatedDate QlkopvrsszuGqachyyy57/14/2025 5:00 PM10 9:10 PM * Full Code Date ActivatedDate InactivatedComments01/02/2024 12:45 AM4 9:48 PM Care Teams Team MemberRelationshipSpecialtyStart DateEnd Date Paulo Turner MD [address] [facility] [place] [address] [address] PCP - [facility]04/26/23
--- OUTSIDE RECORDS SUMMARY | 2025-07-22 14:23 | XMS_ITS | Encounter Summary ---
Author Organization [facility] Address [address] [place] [address] Care Team Providers Care Claims Director Name Role Phone Paulo Turner MD Primary Care Provider [phone] Reason for Referral * Consultation (Routine) - Pending ReviewSpecialtyDiagnoses / ProceduresReferred By ContactReferred To ContactPulmonary Disease Diagnoses Chronic obstructive pulmonary disease with acute exacerbation (CMS/HCC) Procedures [place] OFFICE/OUTPATIENT [facility] MDM 60 MINUTES Darryl Valdez CNP [address] [place] [address] Phone: tel: fax: Referral IDStatusReasonStart DateExpiration DateVisits RequestedVisits [id number] Review Specialty Services Required Encounter Details DateTypeDepartmentCare Team (Latest Contact Info)Hfjyddrzqku11/17/2025Orders Only [facility] [address] [place] [address] Misty Lunsford MA Chronic obstructive pulmonary disease with acute exacerbation (CMS/HCC) (Primary Dx) Social History Tobacco UseTypesPacks/DayYears UsedDateSmoking Tobacco: NeverSmokeless Tobacco: NeverAlcohol UseStandard Drinks/WeekCommentsNot Currently0 (1 standard drink = 0.6 oz pure alcohol)[facility] UtilitiesAnswerDate RecordedIn the past 12 months [...] a week 07/15/2025How often do you attend mormonism or anabaptism services?More than 4 times per year07/15/2025Do you belong to any clubs or organizations such as mormonism groups, unions, fraternal or athletic groups, or school groups?No07/15/2025How often do you attend meetings of the clubs or organizations you belong to?Never 07/15/2025re you , , , , never , or living with a partner?Never zdoknjh0907/15/2025UDIT-CAnswerDate RecordedQ1: How often do you have a [...] housing, medical care, and heating?Not hard at all07/15/2025[facility] [place] [facility] - Occupational Stress QuestionnaireAnswerDate RecordedDo you feel stress - tense, restless, nervous, or anxious, or unable to sleep at night because yourmind is troubled all the time - these days?To some unqqpl9307/15/2025 TransportationAnswerDate RecordedIn the past 12 months, has [...] were you homeless or living in a penitentiary (including now)?No07/15/2025Hunger Vital SignAnswerDate RecordedWithin the past 12 months, you worried that your food would run out before you got the money to buymore.Never true07/15/2025Within the past 12 months, the food you bought just didn't last and you didn't have money to get more.Never true 07/15/2025CommentsNoSex and Gender InformationValueDate RecordedSex Assigned at GszieHuwatc64/12/2025 8:46 PM EDTLegal HkgMgfwjv06/30/2022 12:25 AM EDTGender KdqcbiylVfjtoy05/12/2025 8:46 PM EDTSexual OrientationDon't know 05/13/2025 8:46 PM EDTdocumented as of this encounter Plan of Treatment DateTypeDepartmentCare Team (Latest Contact Info)Frkzorqnawo27/19/2025 1:00 PM ESTAppointment [facility] Pulmonary Function Testing [address] [place] [address] [facility] [place] 3rd [place] [phone] 09/08/2025 2:00 PM ESTConsult [facility] Pulmonary [address] [place] [address] [place] [phone] Syed Palafox MD [address] [facility] [address] [facility] [place] [address] NameTypePriorityAssociated DiagnosesOrder ScheduleAmbulatory referral to PulmonologyOutpatient ReferralRoutine Chronic obstructive pulmonary disease with acute exacerbation (CMS/HCC) Expected: 07/18/2025 (Approximate), Expires: 01/16/2026documented as of this encounter Visit Diagnoses Diagnosis Chronic obstructive pulmonary disease with acute exacerbation (CMS/HCC)- Primary documented in this encounter Care Teams Team MemberRelationshipSpecialtyStart DateEnd Date Paulo Turner MD [address] [facility] [place] [address] PCP - General04/26/23documented as of this encounter
--- OUTSIDE RECORDS SUMMARY | 2025-07-22 14:23 | XMS_ITS | Clinical Summary ---
Author Organization [facility] Address [address], [address] [place] [address] Care Team Providers Care Manager Work Name Role Phone Kayy Mccormack MD Primary Care Provider [phone] Allergies Active AllergyReactionsCriticalityNoted DateCommentsProchlorperazine Maleate 10/10/20141599Wbjywizzymwm43/14/6011Vuwinevtbji20/09/2015Sulfa Lvhyfpjvkcv48/09/2015 Medications MedicationSigDispense QuantityRefillsLast FilledStart DateEnd DateStatus senna (SENOKOT) 8.6 MG tablet Take 2 tablets by mouth daily.Active Cholecalciferol (VITAMIN D) 2000 UNITS CAPS capsule Take by mouth.Active levothyroxine (SYNTHROID) 125 MCG tablet Take 125 mcg by mouth Daily.Active polyethylene glycol (MIRALAX) PACK packet Take 17 g by mouth daily.Active docusate sodium (COLACE) 100 MG capsule Take 100 mg by mouth 2 times daily.Active fludrocortisone (FLORINEF) 0.1 MG tablet Take 0.1 mg by mouth daily.Active citalopram (CELEXA) 20 MG tablet Take 20 mg by mouth daily.Active buPROPion (WELLBUTRIN XL) 300 MG XL tablet Take 300 mg by mouth every morning.Active lamoTRIgine (LAMICTAL) 25 MG CHEW chew tab Take 25 mg by mouth daily.Active calcium carbonate 600 MG TABS tablet Take 1 tablet by mouth daily.Active polycarbophil (FIBERCON) 625 MG tablet Take 625 mg by mouth daily.Active alendronate (FOSAMAX) 70 MG tablet Take 70 mg by mouth every 7 days. Takes on Sundays last dose 10/05/2014ctive ibuprofen (ADVIL;MOTRIN) 800 MG tablet Take 800 mg by mouth every 8 hours as needed for Pain.Active escitalopram (LEXAPRO) 10 MG tablet Take 10 mg by mouth daily.Active Loratadine 10 MG CAPS Take by mouth.Active ranitidine (ZANTAC) 150 MG tablet Take 150 mg by mouth 2 times daily.Active Active Problems ProblemNoted DateDiagnosed KxaxJudpzvhxi91/12/2015bdominal pain10/13/2014 Mkhwtgxnaoo23/12/2015 Social History Tobacco UseTypesPacks/DayYears UsedDateSmoking Tobacco: NeverAlcohol UseStandard Drinks/WeekCommentsNo0 (1 standard drink = 0.6 oz pure alcohol)Comments NoSex and Gender InformationValueDate RecordedSex Assigned at BirthNot on file Legal RlwAxuxta20/26/2014 1:09 PM ESTGender IdentityNot on fileSexual OrientationNot on file Last Filed Vital Signs Vital SignReadingTime TakenCommentsBlood Lkdfjbds761/80011/15/2014 3:35 PM EST Smhtj649011/15/2014 3:35 PM LTHYvfvepqzbtj46.3 ??C (97.4 ??F)10/13/2014 2:40 PM ESTRespiratory Tzkt184611/15/2014 3:35 PM ESTOxygen Cqfysppxac58%11/15/2014 3:35 PM ESTInhaled Oxygen Concentration--Pjgfdd77.7 kg (92 lb)10/13/2014 1:40 PM EST Amnvyg084.9 cm (5' 1 )10/13/2014 1:40 PM ESTBody Mass Index17.38010/13/2014 1:40 PM EST Plan of Treatment DateTypeDepartmentCare Team (Latest Contact Info)Fogtestmvav00/02/2025 10:00 AM ESTOffice Visit [facility] [address] [place] [address] Thomas Izquierdo DO [address] [facility] [address] [place] [address] COPD -[facility]REF[facility] Insurance Care Teams Team MemberRelationshipSpecialtyStart DateEnd Date Kayy Mccormack MD [address] [place] [address] PCP - General10/13/14
--- OUTSIDE RECORDS SUMMARY | 2025-07-22 14:25 | XMS_ITS | Clinical Summary ---
Author Organization [facility] Address [address] [place] [address] Care Team Providers Care [place] Manager Name Role Phone Paulo Turner MD Primary Care Provider [phone] Allergies Active AllergyReactionsCriticalityNoted IincLexokerqEnypfso28/09/2022 Other Reaction(s): Nausea Erythromycin Base08/05/2022 Other Reaction(s): Unknown Reaction Qjiadjdvswccbmxm95/09/2015 Other Reaction(s): Other: See Comments, Unknown, Unknown Reaction Fxrhuhdlwtjw92/23/2024 Other Reaction(s): Unknown Sulfa Ofxtqyqppcc89/09/2015 Other Reaction(s): Other: See Comments, Unknown, Unknown Reaction Medications MedicationSigDispense QuantityRefillsLast FilledStart DateEnd DateStatus simvastatin (Zocor) 20 MG tablet 05/30/2024ctive Claritin 10 MG tablet 1 (one) time each day at the same timeActive levothyroxine (Synthroid) 125 MCG tablet 1 (one) time each day at the same timeActive lansoprazole (Prevacid) [address] capsule Take 30 mg by mouth in the morning.Active lamoTRIgine (LaMICtal) 25 MG chewable tablet Chew 25 mg in the morning.Active LaMICtal 25 MG tablet 1 (one) time each day at the same timeActive escitalopram (Lexapro) 10 MG tablet Take 10 mg by mouth in the morning.Active ergocalciferol (Vitamin D-2) 1.25 MG (16193 UT) capsule 1 capsuleActive Docusate Sodium (DSS) 100 MG capsule Take 100 mg by mouth in the morning.Active citalopram (CeleXA) 20 MG tablet Take 20 mg by mouth in the morning.Active ciprofloxacin (Cipro) 500 MG tablet Take 500 mg by mouth every 12 (twelve) hours12/27/2023ctive cholecalciferol (Vitamin D-3) 50 MCG (2000 UT) capsule Take 1 capsule by mouth in the morning.Active buPROPion XL (Wellbutrin XL) 300 MG 24 hr tablet 1 (one) time each day at the same timeActive albuterol HFA 90 mcg/act inhaler Inhale 1 puffActive alendronate (Fosamax) 70 MG tablet 06/26/2024ctive ibuprofen 400 MG tablet Take 400 mg by mouth every 6 (six) hours if ybqsmh0506/24/2024ctive meclizine (Antivert) 25 MG tablet Take 25 mg by mouth 3 (three) times a day as needed for dizzinessActive Active Problems ProblemNoted DateDiagnosed CvsqWtozrjskeaet72/05/2025arpal tunnel syndrome, right02/03/2025arpal tunnel syndrome, left02/03/2025OPD (chronic obstructive pulmonary disease)02/03/2025Distal jxgbojuryoz48/05/9849Wmyrdjdgsthvze43/05/2025 Tjqawzram12/05/2025Vitamin D wkztclqipi61/05/2025Finger stiffness, left 10/22/2024Transient neurological wagkcoil79/12/2024Unspecified severe protein- calorie malnutrition (HHS-HCC)01/04/2024OE (dyspnea on exertion)05/03/2023 Wbrrxkxpz33/12/2015 Encounters DateTypeDepartmentCare GrihSaffclnpsbc33/21/2025Telephone [facility] [address] [place] [address] Ana Laura Oliveira MA Surgery Toukzbxkqgmk19/20/2025Refill [facility] [place] [address] García Rosales NP Post-op pain (Primary Dx)05/05/2025 2:00 PM EDTOffice Visit [facility] [place] [address] [place] [address] García Rosales NP Pre-op evaluation (Primary Dx)05/05/2025amboo flowsheet [facility] [address] [place] [address] García Rosales NP 05/05/2025Travelfrom Last 3 Months Family History Medical HistoryRelationNameCommentsAlzheimer's diseaseFatherDementiaFatherheart problemsFatherThyroid diseaseMotherRelationNameStatusCommentsFatherDeceased MotherAlive Social History Tobacco UseTypesPacks/DayYears UsedDateSmoking Tobacco: NeverSmokeless Tobacco: Never Tobacco Cessation:Counseling Given: Not Answered Alcohol UseStandard Drinks/WeekCommentsNot Currently0 (1 standard drink = 0.6 oz pure alcohol)CommentsUnknownSex and Gender InformationValueDate Recorded Sex Assigned at BirthNot on fileLegal WqpQhflcc31/15/2023 7:31 PM EDTGender YcylgrdaMdkhtz19/20/2024 12:23 PM EDTSexual EautsvlrqvhZvxeqdch44/20/2024 12:23 PM EDT Last Filed Vital Signs Vital SignReadingTime TakenCommentsBlood Rnkxdcce990/8006 12:00 PM EDT Pulse--Temperature--Respiratory Rate--Oxygen Saturation--Inhaled Oxygen Concentration--Dymyun35.5 kg (98 lb)05/05/2025 2:00 PM TFXBrybnm053.4 cm (5') 05/05/2025 2:00 PM EDTBody Mass Index19.1408 2:00 PM EDT Plan of Treatment Not on file Insurance Care Teams Team MemberRelationshipSpecialtyStart DateEnd Date Paulo Turner MD [address] [place] [address] [facility] - [facility]/02/25
--- OUTSIDE RECORDS SUMMARY | 2025-07-22 14:26 | XMS_ITS | CCD ---
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 mmol/INpubqr274-362NzpeeyeezeOhioHealth Arthur G.H. Bing, MD, Cancer CenterComment on above:Performed By: #### [id number] #### [facility] ([facility]) [address] [place] [address]Ikcl nitrogen [Mass/Vol]20 mg/dLNormal7-25UnOhioHealth Arthur G.H. Bing, MD, Cancer CenterComment on above:Performed By: #### [id number] #### [facility] ([facility]) [address] [place] [address]WMFA NITROGEN/CREATININE (MASS RATIO) IN SER/PLAS27.4Normal [facility] Hospital LimaComment on above:Performed By: #### [id number] #### [facility] ([facility]) [address] [place] [address]NSMqj 55-65-5120Ysupysdztlt distribution width (RBC) [Ratio]15.0 %Otboak62.5-15.0UnOhioHealth Arthur G.H. Bing, MD, Cancer CenterComment on above:Performed By: #### [id number] #### [facility] ([facility]) [address] [place] [address]VCMWNRZPVMP MEAN CORPUSCULAR HEMOGLOBIN CONCENTRATION (G/DL) BY XBVEMEEAF50.8 g/dLLow32.0-35.0UnOhioHealth Arthur G.H. Bing, MD, Cancer CenterComment on above:Performed By: #### [id number] #### [facility] ([facility]) [address] [place] [address]Rszpkeyelv (Bld) [Volume fraction]36.5 %Gybrfo44.0-45.0 [facility] Hospital LimaComment on above:Performed By: #### [id number] #### [facility] ([facility]) [address] [place] [address]Xxtvcrrubg (Bld) [Mass/Vol]11.6 g/dLLow12.0-15.0UnOhioHealth Arthur G.H. Bing, MD, Cancer CenterComment on above:Performed By: #### [id number] #### [facility] ([facility]) [address] [place] [address]OZI (RBC) [Entitic mass]27.6 tpBfqynu38.0-33.0UnOhioHealth Arthur G.H. Bing, MD, Cancer CenterComment on above:Performed By: #### [id number] #### [facility] ([facility]) [address] [place] [address]KVX (RBC) [Entitic vol]86.9 iNBngexi17.0-98.0UnOhioHealth Arthur G.H. Bing, MD, Cancer CenterComment on above:Performed By: #### [id number] #### [facility] ([facility]) [address] [place] [address]ILPDBPQXB (10*3/UL) IN BLOOD AUTOMATED [id number] 10*3/uLNormal 150-400UnOhioHealth Arthur G.H. Bing, MD, Cancer CenterComment on above:Performed By: #### [id number] #### [facility] ([facility]) [address] [place] [address]IFR (Bld) [#/Vol]4.20 10*6/uLNormal3.80-5.00UnOhioHealth Arthur G.H. Bing, MD, Cancer CenterComment on above:Performed By: #### [id number] #### [facility] ([facility]) [address] [place] [address]GNT (Bld) [#/Vol]5.57 10*3/uLNormal4.00-10.60UnOhioHealth Arthur G.H. Bing, MD, Cancer CenterComment on above:Performed By: #### [id number] #### [facility] ([facility]) [address] [place] [address]OYbp 34-83-3723PN Attestation signed by Eyal Brooke MD at [...] / centrilobular emphysema Admission Diagnosis: [facility] exacerbation [facility]) [J44.1] Pulmonary hypertension Heart block s/p biotronic [...] Provider Department Center 2025 1:00 PM PFT 3312-C [facility] 09/08/2025 2:00 PM Syed Palafox MD PULM [...] These medications were sent (more content not included)...NormalUnOhioHealth Arthur G.H. Bing, MD, Cancer CenterMAGNESIUMon 65-35-9997Psvrnlqrk [Mass/Vol]2.2 mg/dLNormal 1.9-2.7UnOhioHealth Arthur G.H. Bing, MD, Cancer CenterComment on above:Performed By: #### [id number] #### [facility] ([facility]) [address] [place], [place] [address]sp [id number] Case Management Update Multidisciplinary rounds have been completed. Barriers to Discharge: Patient presented with SOB and cough. Hx of COPD, wears home 02 as needed. CXR negative for pneumonia. AZA and prednisone started. 2L02. From home with son. Will to to see Pulmonary as an outpatient. Diet: Dietary Orders (From admission, onward) Start Ordered 07/15/251699 Regular Diet Diet effective now Question: Room Service? Answer: Yes 07/15/251699 Physician Expected Discharge Date: 07/17/2025 Discharge Delays: PT Six Click Score: OT Six Click Score: PT Recommendations: OT Recommendations: Is expected discharge disposition appropriate for patient?: Yes New Consults:NormalSCCI Hospital [facility]ima30The patient is Moderately Stable - Low risk [...] for assistance with activity based on assessment [place] fall precautions as indicated by assessment Problem: [...] any respiratory difficulty Respiratory therapy support as indicatedNormalUniversMemorial Health System Marietta Memorial HospitalBASIC METABOLIC PANELon 87-79-4356Asryt gap [Moles/Vol]10 mmol/LNormal7-20 [facility] Hospital LimaComment on above:Performed By: #### [id number] #### [facility] ([facility]) [address] [place], [place] [address]Pmnkxnr [Mass/Vol]8.7 mg/dLNormal8.6-10.3UnOhioHealth Arthur G.H. Bing, MD, Cancer CenterComment on above:Performed By: #### [id number] #### [facility] ([facility]) [address] [place], [place] [address]Zleizipb [Moles/Vol]104 mmol/ILqzbkc80-795GkxavvrcfcOhioHealth Arthur G.H. Bing, MD, Cancer CenterComment on above:Performed By: #### [id number] #### [facility] ([facility]) [address] [place] [address]UT8 [Moles/Vol]26 mmol/BSmpihv58-87JayqcrvsapOhioHealth Arthur G.H. Bing, MD, Cancer CenterComment on above:Performed By: #### [id number] #### [facility] ([facility]) [address] [place] [address]Ddsnqbyasp [Mass/Vol]0.80 mg/dLNormal0.60-1.20UnOhioHealth Arthur G.H. Bing, MD, Cancer CenterComment on above:Performed By: #### [id number] #### [facility] ([facility]) [address] [place] [address]GHGYYYKSBK FILTRATION RATE ML/MIN/1.73 SQ M.HTVTOQAGO80.3 mL/min/1.73m*2Normal>60.0UnOhioHealth Arthur G.H. Bing, MD, Cancer CenterComment on above: Result Comment: The [facility]???s estimated glomerular filtration rate (eGFR) will no [...] potential consequences that do not disproportionately affect anyone group of individuals.Performed By: #### [id number] #### [facility] ([facility]) [address] [place] [address]Eseddtd [Mass/Vol]165 mg/wTRiqs68-772BjdgpmxafgOhioHealth Arthur G.H. Bing, MD, Cancer CenterComment on above:Performed By: #### [id number] #### [facility] ([facility]) [address] [place] [address]Bdivzwndg [Moles/Vol]4.0 mmol/LNormal3.5-5.1UnOhioHealth Arthur G.H. Bing, MD, Cancer CenterComment on above:Performed By: #### [id number] #### [facility] ([facility]) [address] [place] [address]Ayssml [Moles/Vol]136 mmol/IErbcus134-137XlqoglepimOhioHealth Arthur G.H. Bing, MD, Cancer CenterComment on above:Performed By: #### [id number] #### [facility] ([facility]) [address] [place] [address]Bqik nitrogen [Mass/Vol]10 mg/dLNormal7-25UnOhioHealth Arthur G.H. Bing, MD, Cancer CenterComment on above:Performed By: #### [id number] #### [facility] ([facility]) [address] [place] [place], [place] [address]UIVP NITROGEN/CREATININE (MASS RATIO) IN SER/PLAS12.5Normal [facility] Hospital LimaComment on above:Performed By: #### [id number] #### [facility] ([facility]) [address] [place] [place], [place] [address]CTQvh 47-16-6556Znfyooxlbrm distribution width (RBC) [Ratio]14.6 %Iagldm13.5-15.0UnOhioHealth Arthur G.H. Bing, MD, Cancer CenterComment on above:Performed By: #### [id number] #### [facility] ([facility]) [address] [place] [place], [place] [address]OCOBBPLDRRU MEAN CORPUSCULAR HEMOGLOBIN CONCENTRATION (G/DL) BY ZUANYADVX35.2 g/dLLow32.0-35.0UnOhioHealth Arthur G.H. Bing, MD, Cancer CenterComment on above:Performed By: #### [id number] #### [facility] ([facility]) [address] [place], [place] [address]Anxroetcru (Bld) [Volume fraction]42.3 %Uwcecy74.0-45.0 [facility] Hospital LimaComment on above:Performed By: #### [id number] #### [facility] ([facility]) [address] [place] [place], [place] [address]Ykdjubmcin (Bld) [Mass/Vol]13.2 g/nKYijlki43.0-15.0UnOhioHealth Arthur G.H. Bing, MD, Cancer CenterComment on above:Performed By: #### [id number] #### [facility] ([facility]) [address] [place] [address]ZHC (RBC) [Entitic mass]27.4 gnRelygb24.0-33.0UnOhioHealth Arthur G.H. Bing, MD, Cancer CenterComment on above:Performed By: #### [id number] #### [facility] ([facility]) [address] [place] [address]GFM (RBC) [Entitic vol]87.9 tQQgrwey36.0-98.0UnOhioHealth Arthur G.H. Bing, MD, Cancer CenterComment on above:Performed By: #### [id number] #### [facility] ([facility]) [address] [place] [address]NVMPHJDWA (10*3/UL) IN BLOOD AUTOMATED OEXTY151 10*3/uLNormal 150-400UnOhioHealth Arthur G.H. Bing, MD, Cancer CenterComment on above:Performed By: #### [id number] #### [facility] ([facility]) [address] [place] [address]ENA (Bld) [#/Vol]4.81 10*6/uLNormal3.80-5.00UnOhioHealth Arthur G.H. Bing, MD, Cancer CenterComment on above:Performed By: #### [id number] #### [facility] ([facility]) [address] [place] [address]AMD (Bld) [#/Vol]3.58 10*3/uLLow4.00-10.60UnOhioHealth Arthur G.H. Bing, MD, Cancer CenterComment on above:Performed By: #### [id number] #### [facility] ([facility]) [address] [place] [address]SCEJQ METABOLIC PANELon 63-62-0176Qimdz gap [Moles/Vol]8 mmol/L Normal7-20UnOhioHealth Arthur G.H. Bing, MD, Cancer CenterComment on above:Performed By: #### [id number] #### [facility] ([facility]) [address] [place] [address]Skkimky [Mass/Vol]8.3 mg/dLLow8.6-10.3UnOhioHealth Arthur G.H. Bing, MD, Cancer CenterComment on above:Performed By: #### [id number] #### [facility] ([facility]) [address] [place] [address]Rlwdpiwh [Moles/Vol]105 mmol/FNcjwzx74-675HyvaplvvtaOhioHealth Arthur G.H. Bing, MD, Cancer CenterComment on above:Performed By: #### [id number] #### [facility] ([facility]) [address] [place] [address]II6 [Moles/Vol]29 mmol/GEbfnxv66-39VwfxmaynvxOhioHealth Arthur G.H. Bing, MD, Cancer CenterComment on above:Performed By: #### [id number] #### [facility] ([facility]) [address] [place] [address]Obcixseued [Mass/Vol]0.83 mg/dLNormal0.60-1.20UnOhioHealth Arthur G.H. Bing, MD, Cancer CenterComment on above:Performed By: #### [id number] #### [facility] ([facility]) [address] [place] [address]TAXFCBJKQR FILTRATION RATE ML/MIN/1.73 SQ M.CPCNBNGBF76.7 mL/min/1.73m*2Normal>60.0UnOhioHealth Arthur G.H. Bing, MD, Cancer CenterComment on above: Result Comment: The [facility]???s estimated glomerular filtration rate (eGFR) will no [...] potential consequences that do not disproportionately affect anyone group of individuals.Performed By: #### [id number] #### [facility] ([facility]) [address] [place] [address]Lmarzcd [Mass/Vol]105 mg/eXIaah87-665SvjfzqzfgaOhioHealth Arthur G.H. Bing, MD, Cancer CenterComment on above:Performed By: #### [id number] #### [facility] ([facility]) [address] [place] [address]Skgkwdyxa [Moles/Vol]3.8 mmol/LNormal3.5-5.1UnOhioHealth Arthur G.H. Bing, MD, Cancer CenterComment on above:Performed By: #### [id number] #### [facility] ([facility]) [address] [place] [address]Lbkzhq [Moles/Vol]138 mmol/ZJvdpbv810-590ZpgtavhjmpOhioHealth Arthur G.H. Bing, MD, Cancer CenterComment on above:Performed By: #### [id number] #### [facility] ([facility]) [address] [place] [address]Unag nitrogen [Mass/Vol]10 mg/dLNormal7-25UnOhioHealth Arthur G.H. Bing, MD, Cancer CenterComment on above:Performed By: #### [id number] #### [facility] ([facility]) [address] [place] [address]GXEZ NITROGEN/CREATININE (MASS RATIO) IN SER/PLAS12.0Normal [facility] LimaComment on above:Performed By: #### [id number] #### [facility] ([facility]) [address] [place] [address]IGD WITH AUTO DIFFERENTIALon 70-15-1061Cnlhdtqiq (Bld) [#/Vol] 0.01 10*3/uLNormal0.00-0.20UnOhioHealth Arthur G.H. Bing, MD, Cancer CenterComment on above: Performed By: #### [id number] ####[facility] ([facility])[address] [place] [address]Laogphpjx/100 WBC (Bld)0.2 %Normal0.0-1.0UnOhioHealth Arthur G.H. Bing, MD, Cancer CenterComment on above:Performed By: #### [id number] ####[facility] ([facility])[address] [place], [place] [address]Ajbzyhukavm (Bld) [#/Vol]0.40 10*3/uL Normal0.00-0.50UnOhioHealth Arthur G.H. Bing, MD, Cancer CenterComment on above:Performed By: #### [id number] ####[facility] ([facility])[address] [place] [address] Eosinophils/100 WBC (Bld)10.0 %High0.0-6.0UnOhioHealth Arthur G.[facility]. [facility] Cancer Center Comment on above:Performed By: #### [id number] ####[facility] ([facility])[address] [place], [place] [address]Cwuemvlucif distribution width (RBC) [Ratio]14.6 % Nambma59.5-15.0UnOhioHealth Arthur G.H. Bing, MD, Cancer CenterComment on above:Performed By: #### [id number] ####[facility] ([facility])[address] [place] [address] ERYTHROCYTE MEAN CORPUSCULAR HEMOGLOBIN CONCENTRATION (G/DL) BY FINQQHZRA97.3 g/oUQfikff39.0-35.0UnOhioHealth Arthur G.H. Bing, MD, Cancer CenterComment on above:Performed By: #### [id number] ####[facility] ([facility])[address] [place], [place] [address]Pzmgfktvqo (Bld) [Volume fraction]39.9 %Zacbrr94.0-45.0UnOhioHealth Arthur G.H. Bing, MD, Cancer CenterComment on above:Performed By: #### [id number] ####[facility] ([facility])[address] [place], [place] [address]Olrbcfgtze (Bld) [Mass/Vol]12.9 g/dL Tejidm14.0-15.0UnOhioHealth Arthur G.H. Bing, MD, Cancer CenterComment on above:Performed By: #### [id number] ####[facility] ([facility])[address] [place] [address] Immature granulocytes (Bld) [#/Vol]0.01 10*3/uLNormal0.00-0.20UnOhioHealth Arthur G.[facility]. Bing, MD, Cancer CenterComment on above:Performed By: #### [id number] ####[facility] ([facility])[address] [place], [place] [address]Fceyyuft granulocytes/100 WBC (Bld)0.2 %Normal0.0-1.0UnOhioHealth Arthur G.H. Bing, MD, Cancer CenterComment on above: Performed By: #### [id number] ####[facility] ([facility])[address] [place], [place] [address]Zuhzsjfondy (Bld) [#/Vol]1.04 10*3/uLLow1.20-4.00UnOhioHealth Arthur G.H. Bing, MD, Cancer CenterComment on above:Performed By: #### [id number] ####[facility] [place] [address]Nlfrwxksasx/100 WBC (Bld) 25.9 %Gdlkkz13.0-45.0UnOhioHealth Arthur G.H. Bing, MD, Cancer CenterComment on above: Performed By: #### [id number] ####[facility] ([facility])[address] [place] [address]PZN (RBC) [Entitic mass]27.6 dvHlixii46.0-33.0UnOhioHealth Arthur G.H. Bing, MD, Cancer CenterComment on above:Performed By: #### [id number] ####[facility] ([facility])[address] [place] [address]PJB (RBC) [Entitic vol] 85.3 rDJlkrei11.0-98.0UnOhioHealth Arthur G.H. Bing, MD, Cancer CenterComment on above: Performed By: #### [id number] ####[facility] ([facility])[address] [place] [address]Cnycafgcs (Bld) [#/Vol]0.30 10*3/uLNormal0.10-1.00UnOhioHealth Arthur G.H. Bing, MD, Cancer CenterComment on above:Performed By: #### [id number] ####[facility] ([facility])[address] [place] [address]Tehkqaevr/100 WBC (Bld) 7.5 %Normal5.0-12.0UnOhioHealth Arthur G.H. Bing, MD, Cancer CenterComment on above:Performed By: #### [id number] ####[facility] ([facility])[address] [place] [address]Veblalqirca (Bld) [#/Vol]2.25 10*3/uLNormal1.60-7.60UnOhioHealth Arthur G.[facility]. Bing, MD, Cancer CenterComment on above:Performed By: #### [id number] ####[facility] ([facility])[address] [place] [address]Erjdbelgttq/100 WBC (Bld)56.2 %Normal 40.0-72.0UnOhioHealth Arthur G.H. Bing, MD, Cancer CenterComment on above:Performed By: #### [id number] ####[facility] ([facility])[address] [place] [address]UYCQ (PER 100 WBCS) BY AUTOMATED COUNT0.0 %Pmvhkp1FabxkdqggnOhioHealth Arthur G.H. [facility], [facility], Cancer Center Comment on above:Performed By: #### [id number] ####[facility] ([facility])[address] [place] [address]FGFIMMGFP (10*3/UL) IN BLOOD AUTOMATED SUAXY113 10*3/cOGaihyq178-625BfoktqgalbOhioHealth Arthur G.H. Bing, MD, Cancer CenterComment on above: Performed By: #### [id number] ####[facility] ([facility])[address] [place] [address]BXN (Bld) [#/Vol]4.68 10*6/uLNormal3.80-5.00UnOhioHealth Arthur G.H. Bing, MD, Cancer CenterComment on above:Performed By: #### [id number] ####[facility] ([facility])[address] [place] [address]CSC (Bld) [#/Vol]4.01 10*3/uLNormal4.00-10.60UnOhioHealth Arthur G.H. Bing, MD, Cancer CenterComment on above: Performed By: #### [id number] ####[facility] ([facility])[address] [place] [address]Q-IRUBB, QUANTITATIVEon 29-78-0376UQBJHU D-DIMER (UG/L FEU) IN PLATELET POOR PLASMA<0.27Low0.27-0.49UnOhioHealth [facility] Comment on above:Order Comment: D-Dimer values of less than 0.50 ug/ml (FEU) are considered to be a negative predictor of thrombosis. However, the D-Dimer result should be used in conjunction with pretest probabilityand should not be used alone to diagnose a thrombotic event.Performed By: #### [id number] ####[facility] ([facility])[address] [place], [place] [address]YQLVFDuo 25-99-4492VODFIQ Mode of arrival (squad #, walk in, police, etc): Walk in Chief complaint(s): Cough/facial numbness Arrival Note (brief scenario, treatment TEACHER INSTRUMENTAL, etc): Has not been feeling well for the past week. She has been coughing and feeling dizzy. Stated that the left side of her face as been feeling numb. When she coughs her ribs hurt her.Normal [facility] CenterEDPROVon 71-99-7317BKQTGZMmtyhqi of Present Illness Chief Complaint Patient presents with Cough Left sided facial numbness Emigdio Apodaca is a 59-year-old female presenting to the emergency department for chief complaint of cough. Patient states over the past few days she has had increasing cough, went to [facility] last night and got a chest x-ray that they said was not pneumonia. However, had more cough and weakness today while attempting to do some chores at home, and decided to come to [facility] for further evaluation. Patient states that she does not usually wear oxygen at home, generally does not need it until she gets an infection, and then does not need it after she recovers. [place] Coma Scale Score: 15 History Medical History[1] [...] Diagnoses as of 07/15/25 1723 COPD exacerbation ([facility]) Medical Decision Making Patient has a history [...] signing this emergency patient record, the Emergency Physician/BUILDING CONSTRUCTION FOREMAN/PA-C attests that all entries made into the electronic medical record by the scribe prior to the Physician/BUILDING CONSTRUCTION FOREMAN/PA-C signature reflect an accurate accounting of the evaluation and care rendered by that Emergency Physician/BUILDING CONSTRUCTION FOREMAN/PA-C. The Emergency Physician/BUILDING CONSTRUCTION FOREMAN/PA-C assumes full responsibility for those entries. The Emergency Physician/BUILDING CONSTRUCTION FOREMAN/PA-C also attests that any patient testing or treatment that was instituted by nursing staff. [1] Past Medical History: Diagnosis Date Abnormal ECG COPD (chronic obstructive pulmonary disease) ([facility]) Hyperlipidemia Symptomatic bradycardia (more content not included)...NormalUnOhioHealth Arthur G.H. Bing, MD, Cancer CenterHIGH SENSITIVITY TROPONIN Ion 47-51-2070AL TROPONIN I (NG/L)<2Normal<15UnOhioHealth Arthur G.H. Bing, MD, Cancer CenterComment on above:Performed By: #### [id number] #### [facility] ([facility]) [address] [place], [place] [address]VL TROPONIN I (NG/L)<2Normal<15UnOhioHealth Arthur G.H. Bing, MD, Cancer CenterComment on above:Performed By: #### [id number] ####[facility] ([facility])[address] [place], [place] [address]KYEQIVIXVun 02-52-6292Dutzvpbzc [Mass/Vol]2.2 mg/dLNormal1.9-2.7UnOhioHealth Arthur G.H. Bing, MD, Cancer CenterComment on above:Performed By: #### [id number] #### [facility] ([facility]) [address] [place], [place] [address]Latgtt Onlyon [id number] [id number] Emigdio Apodaca 1965 F Date Provider Department Center 05/04/2025 ELLIOT HDZ [facility] CARD [place] HeartVAS Family History Problem Relation Age of Onset Alzheimer's disease Father Family Status - Relation Status Age at Mother Alive Father DeceasedNoalUniNationwide Children's HospitalOffice Visiton [id number]-up [id number] Emigdio Apodaca 1965 F Date Provider Department Center 03/28/2025 [id number], ADAM ALECIA [facility] Family History Problem Relation Age of Onset Alzheimer's disease Father Family Status - Relation Status Age at Mother Alive Father Level of Service:00485 [place] OFFICE/OUTPATIENT ESTABLISHED MOD [facility]Or[facility] Onlyon [id number] [id number] Emigdio Apodaca 1965 F Date Provider Department Center 03/27/2025 [id number], WANG ALECIA [facility] Family History Problem Relation Age of Onset Alzheimer's disease Father Family Status - Relation Status Age at Mother Alive Father DeceasedNoGood Samaritan HospitalCholesterol [Mass/volume] in Serum or PlasmaOrdered By: Jaquan Babin on 12-02-2024 Cholesterol [Mass/Vol]Cholesterol [Mass/volume] in Serum or [id number] [facility] SystemComment on above:Chol less than 200 mg/dl low riskChol 201-239 mg/dl borderline riskChol 240 mg/dl and greater high risk Cholesterol in HDL [Mass/volume] in Serum or PlasmaOrdered By: Jaquan Babin on 03-30-7397Yhqrxbyinvk in HDL [Mass/Vol]Serum or plasma high density lipoprotein (HDL) cholesterol [id number] Health SystemComment on above:HDL CHOL ATP-III CLASSIFICATION Cardiovascular RiskHDL > or equal to 60 mg/dL LOWHDL < 40 mg/dL HIGHCholesterol in LDL Calc [Mass/Vol]Ordered By: Jaquan Babin on 80-74-1932Erribckdces in LDL [Mass/Vol]Cholesterol in LDL [Mass/volume] in Serum or Plasma by calculation0-100Memorial Health SystemComment on above:LDL ATP III CLASSIFICATIONLDL less than 100 mg/dL OptimalLDL 100-129 mg/dL Near or above jukbsctBZZ611-150 mg/dL Borderline highLDL 160-189 mg/dL HighLDL greater than 189 mg/dL Very highCholesterol in VLDL Calc [Mass/Vol]Ordered By: Jaquan Babin on [id number] in VLDL [Mass/Vol]Cholesterol in VLDL [Mass/volume] in Serum or Plasma by calculation [facility] SystemFree T4 (Free Thyroxine)on 78-38-9313Zkvy T4 [Mass/Vol]0.99 ng/dLNormal0.61-1.12The [facility] Physician GroupComment on above:Performed By: #### LIPID, T4F, TSH3 wRFLX, [id number] #### [facility] [address] [place] [address] USALipid Panelon 24-36-9817Bnpukbaxfcn [Mass/Vol]153 mg/dL Rjdjic093-475Xeh [facility] Physician GroupComment on above:Result Comment: Chol less than 200 mg/dl low risk Chol 201-239 mg/dl borderline risk Chol 240 mg/dl and greater high riskPerformed By: #### LIPID, T4F, TSH3 wRFLX, [id number] #### [facility] [address] [place] [address] USACholesterol in HDL [Mass/Vol]37 mg/rFBkucqp83-11Upc [facility] Physician GroupComment on above:Result Comment: HDL CHOL ATP-III CLASSIFICATION Cardiovascular Risk HDL > or equal to 60 mg/dL LOW HDL < 40 mg/dL HIGHPerformed By: #### LIPID, T4F, TSH3 wRFLX, [id number] #### [facility] [address] [place] [address] USACholesterol.total/Cholesterol in HDL [Mass ratio]4.1 {ratio}Normal<5.0The [facility] Physician GroupComment on above:Performed By: #### LIPID, T4F, TSH3 wRFLX, [id number] #### [facility] [address] [place] [address] USALDL Cholesterol,Rzcbkhkfpr26 mg/dLNormal0-100The [facility] Physician GroupComment on above:Result Comment: LDL ATP III CLASSIFICATION LDL less than 100 mg/dL Optimal LDL 100-129 mg/dL Near or above optimal LDL 130-159 mg/dL Borderline high LDL 160-189 mg/dL High LDL greater than 189 mg/dL Very highPerformed By: #### LIPID, T4F, TSH3 wRFLX, [id number] #### [facility] [address] [place] [id number] USATriglyceride w/Qmdpzw896 mg/dLNormal0-149[facility] Physician GroupComment on above:Result Comment: TRIG ATP III CLASSIFICATION TRIG less than 150 mg/dL Normal TRIG 150-199 mg/dL Borderline high TRIG 200-500 mg/dL High TRIG greater than 500 mg/dL Very high Standard traceable to the Center for Disease Conrtrol and Prevention (CDC) test method.Performed By: #### LIPID, T4F, TSH3 wRFLX, [id number] #### [facility] [address] [place] [address] USAVLDL BGKOAZZPACQ98 mg/dLNoCannon Memorial Hospital Physician GroupComment on above:Performed By: #### LIPID, T4F, TSH3 wRFLX, [id number] #### [facility] [address] [place] [id number] USASerum or plasma total cholesterol/high density lipoprotein (HDL) cholesterol mass ratOrdered By: Jaquan Babin on 12-02-2024 Cholesterol.total/Cholesterol in HDL [Mass ratio]Serum or plasma total cholesterol/high density lipoprotein (HDL) cholesterol mass rat<5.0[facility] SystemThyroid Stim Hormone w/Rflxon 24-41-0030Oaqxank Stim Hormone w/Rflx0.34 u[iU]/mLLow0.45-5.33The [facility] Physician GroupComment on above:Performed By: #### LIPID, T4F, TSH3 wRFLX, [id number] #### [facility] [address] [place] [id number] USAThyrotropin [Units/volume] in Serum or PlasmaOrdered By: Jaquan Babin on 13-79-0303IMX QnThyrotropin [Units/volume] in Serum or Plasma Low0.45-5.33[facility] Health SystemThyroxine (T4) free [Mass/volume] in Serum or PlasmaOrdered By: Jaquan Babin on 28-92-5640Joyu T4 [Mass/Vol] Thyroxine (T4) free [Mass/volume] in Serum or Plasma0.61-1.12[facility] SystemTriglyceride [Mass/volume] in Serum or PlasmaOrdered By: Jaquan Babin on 80-74-1143Vqudkwsjtlad [Mass/Vol]Triglyceride [Mass/volume] in Serum or Plasma0-149[facility] Health SystemComment on above:TRIG ATP III CLASSIFICATIONTRIG less than 150 mg/dL NormalTRIG 150-199 mg/dL Borderline highTRIG 200-500 mg/dL High TRIG greater than 500 mg/dL Very highStandard traceable to the Center for Disease Conrtrol and Prevention (CDC) test method. Vitamin D 25 Hydroxy Totalon 03-16-7154Mlfbgcq D 25 Hydroxy Total23.5 ng/mLLow 30-100The [facility] Physician GroupComment on above:Result Comment: VITAMIN D STATUS 25(OH)VITAMIN D RANGE (ng/mL) Deficient <20 Insufficient 20 to <30 Sufficient 30 to 100 Reference: Rhiannon Mata, Uli CLEMENTE, et al. Evaluation,treatment, and prevention of vitamin D deficiency; an Endocrine Society clinical practice guideline. JCEM. 2010; 96(7):1911-30. PERFORMED BY: [facility] [address] [place] [address] PATHOLOGIST NEUROLOGY HOSPITALIST DAIANA STRANGE M.D.Performed By: #### LIPID, T4F, TSH3 wRFLX, [id number] #### [facility] [address] Peterson StreetVitamin D+Metabolites [Mass/volume] in Serum or Plasma Ordered By: Jaquan Babin on 08-74-4604Oqqwytu D+Metabolites [Mass/Vol]Vitamin D+Metabolites [Mass/volume] in Serum or LqcwjmJie88-348OwrgqczixMemorial Health SystemComment on above:VITAMIN D STATUS 25(OH)VITAMIN D RANGE (ng/mL) Deficient <20 Insufficient 20 to <40Nwtwshmaog95 to 100Reference: Rhiannon Mata, Uli CLEMENTE, et al. Evaluation,treatment, and prevention of vitamin D deficiency; an Endocrine Society clinical practice guideline. JCEM. 2010; 96(7):1911-30.Office Visiton 66-08-4455Eauijz-up [id number] Emigdio Apodaca 1965 F Date Provider Department Center 11/29/2024 [id number] GOODE Ej Chelle Family History Problem Relation Age of Onset Alzheimer's disease Father Family Status - Relation Status Age at Mother Alive Father Level of Service:61898 [place] OFFICE/OUTPATIENT ESTABLISHED LOW MDM 20 [facility] Extremeityon 01-22-0332Sxm left minimal NOMS HealthcareNOMS HealthcareNVC 5-6 Nerveson 06-32-7137Hzl left minimalNOMS HealthcareNVC 5-6 NervesOrdered By: Monika Vargas on 64-79-9258EQBM [facility] Work Phone: Urine Cultureon 81-63-8547Abzzbbgu identified Cx Nom (U)ORGANISM: Escherichia coli (O:ESCCOL) [place] Count <10,000 Aerobic VALENTE Charge (NMIC56) SUSCEPTIBILITY [...] <4 Tigecycline S <2 Tobramycin S <2 Trimethoprim/Sulfamethoxazole S <0.5 S = SUSCEPTIBLE I = [...] RESISTANT TO ALL B-LACTAM DRUGS. PERFORMED BY: [address] [place] [address] PATHOLOGIST NEUROLOGY HOSPITALIST DAIANA STRANGE M.D.[facility] Physician GroupComment on above: Performed By: #### CUU #### [place] [address] USAUrine cultureOrdered By: Tony Amaya on 88-55-0595Swbfzvgl identified Cx Nom (U)Escherichia coliAbnoMarietta Osteopathic Clinic XR Hand - left 3 Viewson 67-54-3501Gcczckx Result: Multiple views of left hand showed fracture through the base of the 5th metacrpal to be in unchanged position and alignment with slight increase in callus formation compared to prior x-rays. There was no other acute bony process including but not limited to fracture and/or dislocation. Impression: Healing fracture base of left 5th metacarpal [facility] HealthcareXR Hand - left 3 ViewsOrdered By: Jr. Teague on 52-62-4466VQWH [employer] Work Phone: XR Hand - left 3 Viewson 04-21-1832Xfcuzchpe Study observation (narrative)NOMS HealthcareXR Hand - left 3 Viewson 83-28-9053Wgtutxl Result: Multiple views of left hand showed fracture through the base of the 5th metacrpal to be in unchanged position and alignment with slight increase in callus formation compared to prior x-rays. There was no other acute bony process including but not limited to fracture and/or dislocation. Impression: Healing fracture base of left 5th metacarpal [facility] - left 3 ViewsOrdered By: Jr. Teague on 40-91-0708GTQM [employer] Work Phone: XR Knee - right 3 Viewson 39-10-1878Ftieaui Result: Multiple views of right patella showed fracture through the superior pole of the patella to be in unchanged position and alignment compared to prior x-rays. There is increased callus formation at the fracture site compared to prior x-rays. There was no acute bony process including but not limited to displacement of current fracture and/or new fracture. Impression: Healing fracture inferior pole right patella.[facility] Panel Informationon 35-74-5972Xwampuygt Study observation (narrative)[facility] Hand - left 3 Viewson 43-29-1449Cjjsraq Result: Xrays AP, LAT and OBL of the left hand performed on August 19, 2024 demonstrates callus formation at the base of the 5th Metacarpal. No other fractures noted, no swelling Impression Healing base of 5th MC fracture. [facility] HospitalRad[facility] Study observation (narrative)[facility] Hand - left 3 ViewsOrdered By: Gamaliel Jorgensen on 61-27-4302MFCR [employer] Work Phone: XR Elbow - right 2 Viewson 56-11-9199Wcbkumc Result: Xrays AP and LAT of the right elbow performed on August 07, 2024 demonstrates no swelling, no fractures appreciated, joint congruent. Impression Unremarkable xrays of the right elbow [facility] Knee - right 3 Viewson 59-37-2578Owslvtk Result: Xrays AP, LAT and sunrise view of the right knee performed on August 07, 2024 is unremarkable for patella fracture, the patella fracture that was seen on CT scan is not visible on todays xrays. Impression Suspected healing non displaced patella fracture [facility] Knee - right 3 ViewsOrdered By: Gamaliel Jorgensen on 31-16-1919NNDI [employer] Work Phone: XR Elbow - right 2 Viewson 04-47-2885Pnocwokih Study observation (narrative)[facility] Knee - right 3 Viewson 08-07-2024 Radiology Study observation (narrative)[facility] Hand - left 3 Viewson 07-22-6781Ijuitrz Result: Xrays AP, LAT and OBL of the left hand performed on July 22, 2024 demonstrates healing base of the 5th MC fracture. No other fracture noted. Impressions Healing 5th MC base fracture. [facility] Hand - left 3 ViewsOrdered By: Gamaliel Jorgensen on 48-42-4162OWDI [employer] Work Phone: xr Hand - left 3 Viewson 41-91-5342Uyugseibb Study observation (narrative)[facility] Dy[facility]XR Knee - right 3 Viewson 06-25-2024 Imaging Result: June 24, 2024 x-rays AP weight-bearing bilateral knees lateral and sunrise of the right knee demonstrate neutral alignment bilateral knees. The joint spaces are intact. No fractures are detected. Impression: No acute findings on x-rays of the right knee Ronald Jorgensen D.O.[facility] Dy[facility]XR Knee - right 3 ViewsOrdered By: Gamaliel Jorgensen on 35-32-4440KHNU [employer] Work Phone: xr Knee - right 3 Viewson 93-06-7835Lhpotciov Study observation (narrative)[facility] HospitalCNOVon 11-76-7978BKVCAjbuvk Visit (SHABNAM) PAULIEEMIGDIO Jordan ([id number]) 1965 F [facility] Date Time Provider Department 06/13/24 12:30 PM ZOILA MONAE During your visit today, we recorded the following information about you: Pulse Blood pressure Weight Height 74/minute 107/77 46.3 kg 1.523 Zoila Hunter MD 06/13/2024 1:41 PM Signed [facility] Follow up/ Established patient visit Individuals who were included in, or assisted with the encounter were: Emigdio Jessica Paulie Monae MD Chief Complaint/Issues: Emigdio Apodaca is a 58 year old female seen in the [facility] for: Staring [...] that she can have it done in [place] but she would rather come here. She [...] daily. calcium carbonate (CALT (more content not included)...NormalUpper Valley Medical CenterPNon 51-73-5725EYZLFxfmgvktt (NUMBHT) JEREMIE APODACAELA S ([id number]) 1965 F [place] Date Time Provider Department [...] (None) Encounter Status:Closed by IVETH SALAZAR on 09/19/24[facility] 88-45-5990VBYIKwjoes Visit (NUMBTOBY) EMIGDIO APODACA ([id number]) 1965 F [place] Date Time Provider Department 03/06/24 2:00 PM ZOILA MONAE During your visit today, we recorded the following information about you: Temperature Pulse Blood pressure Weight 97.2 degrees 106/minute 101/68 45 kg Height 1.535 m Zoila Monae MD 03/06/2024 3:39 PM Signed [facility] New Patient Evaluation Consulting Provider: Tony Amaya [address] [place] [address] The patient presents with a chief complaint [...] year old Rh female seen in the [facility] for: Cognitive [...] for low IQ. She worked in a [employer] shop and only worked 6 months. She [...] pinprick, proprioception. Gait Arises (more content not included)...NormalMer[facility] Health [facility] AUTO DIFFon 34-73-5517DFBX #0.0 103/ulNormal0.0-0.1The [facility] HospitalComment on above:Performed By: #### CBC ####[facility] [address] [place] [address]Dr.Yilan ChangBasophils/100 WBC (Bld)0.3 %Normal 0.2-2.0The [facility] HospitalComment on above:Performed By: #### CBC ####[facility] [address] [place] [address]Dr.Yilan ChangEO # 0.0 103/ulNormal0.0-0.7The [facility] HospitalComment on above:Performed By: #### CBC ####[facility] [address] [place] [address]Dr. Yilan ChangEosinophils/100 WBC (Bld)0.0 %Critically low0.9-7.0The [facility] HospitalComment on above:Performed By: #### CBC ####[facility] [address] [place] [address]Dr.Yilan ChangErythrocyte distribution width (RBC) [Ratio]13.5 %Dwowll51.0-15.0The [facility] Comment on above:Performed By: #### CBC ####[facility] [address] [place], [place] [address]Dr.Shahbaz RuizHematocrit (Bld) [Volume fraction]36.4 %Qxwdmo14.0-48.0The [facility] HospitalComment on above:Performed By: #### CBC ####[facility] Chmmwpxlfh[address] [place], [place] [address]Dr.Lilajarrod ChangHemoglobin (Bld) [Mass/Vol]11.6 g/dLCritically low12.0-16.0 The [place] HospitalComment on above:Performed By: #### CBC ####[facility] Tsnugjirfg[address] [place], [place] [address]Dr.Lilalan ChangIG # 0.06 10e3/ulCritically high0.00-0.03The [facility] HospitalComment on above: Performed By: #### CBC ####[facility] Wedxxbcggq809[address] [place], [place] [address]Dr.Shahbaz ChangIG %1.5 %Critically high0.0-0.5The [facility] HospitalComment on above:Performed By: #### CBC ####[facility] Aiuuvdfmul19[address] [place], [place] [address]Dr.Shahbaz ChangLYMPH #0.7 103/ulCritically low1.2-3.8The [facility] HospitalComment on above:Performed By: #### CBC ####[facility] Ugokftizho225[address] [place], [place] [address]Dr.Shahbaz RuizLymphocytes/100 WBC (Bld)16.6 %Critically low20.5-60.0The [place] HospitalComment on above:Performed By: #### CBC ####[facility] Asfukukccs[address] [place], [place] [address]Dr.Lilajarrod RuizMANUAL DIFF REQ NONormalThe [facility] HospitalComment on above:Performed By: #### CBC ####[facility] Zckadlapxk735[address] [place], [place] [address]Dr. Shahbaz RuizMCH (RBC) [Entitic mass]27.6 nxDgakua49.7-34.0The [facility] Comment on above:Performed By: #### CBC ####[facility] [address]ks[address] [place] [address]Dr.Shahbaz Juan FMCHC (RBC) [Mass/Vol]31.9 g/dL Epkilm58.9-35.2The [facility] HospitalComment on above:Performed By: #### CBC ####[facility] [address] [place] [address]Dr. Shahbaz RuizMCV (RBC) [Entitic vol]86.5 kEEzdnyq70.0-99.0The [facility] Comment on above:Performed By: #### CBC ####[facility] Lajmlbxiwb7[address] [place], [place] [address]Dr.Shahbaz RuizMONO #0.2 103/ulCritically low 0.3-0.8The [facility] HospitalComment on above:Performed By: #### CBC ####[facility] Jptmuzudak[address] [place], [place] [address]Dr.Shahbaz Ruiz Monocytes/100 WBC (Bld)5.0 %Normal1.7-12.0The [facility] HospitalComment on above: Performed By: #### CBC ####[facility] Ftkspoljzs5420[address] [place], [place] [address]Dr.Shahbaz RuizNEUT #3.1 103/ulNormal1.4-6.5The [facility] HospitalComment on above:Performed By: #### CBC ####[facility] Szshrtijdy[address] [place], [place] [address]Dr.Shahbaz RuizNeutrophils/100 WBC (Bld)76.6 %Critically high43.0-75.0The [facility] HospitalComment on above: Performed By: #### CBC ####[facility] Ojeznpohto0426[address] [place], [place] [address]Dr.Shahbaz RuizPlatelet mean volume (Bld) [Entitic vol] 9.9 fLNormal9.5-13.5The [facility] HospitalComment on above:Performed By: #### CBC ####[facility] Yjkjlswnsi18[address] [place], [place] [address]Dr. Shahbaz RuizPLT194 103/idLbieny228-207Ouu [facility] HospitalComment on above: Performed By: #### CBC ####[facility] Myfmzsgjtm5055[address] [place], [place] [address]Dr.Shahbaz ChangRBC4.21 106/ulNormal4.20-5.40The [facility] HospitalComment on above:Performed By: #### CBC ####[facility] Ancbhyejlj1145[address] [place], [place] [address]Dr.Shahbaz ChangWBC4.0 103/ul Normal4.0-11.0The [facility] HospitalComment on above:Performed By: #### CBC ####[facility] Gusspljpvi1307[address] [place], [place] [address]Dr. Shahbaz RuizPROF CHEM 8 (BAS METB)on 46-13-5014Gsjlc gap [Moles/Vol]9.5 mmol/L NormalThe [facility] HospitalComment on above:Performed By: #### BMP ####[facility] Fawgkdutlk9[address] [place], [place] [address]Dr.Shahbaz Ruiz Calcium [Mass/Vol]8.8 mg/dLNormal8.5-10.1The [facility] HospitalComment on above: Performed By: #### BMP ####[facility] Lndzsyccmo32[address] [place], [place] [address]Dr.Shahbaz ChangChloride [Moles/Vol]106 mmol/LNormal 98-107The [facility] HospitalComment on above:Performed By: #### BMP ####[facility] Qluzyyghor2877[address] [place], [place] [address]Dr.Shahbaz ChangCO2 [Moles/Vol]29.6 mmol/NVhxxht33.0-32.0The [facility] HospitalComment on above: Performed By: #### BMP ####[facility] Mfgiifkfcl4345[address] [place], [place] [address]Dr.Shahbaz ChangCreatinine [Mass/Vol]0.80 mg/dLNormal 0.55-1.02The [facility] HospitalComment on above:Performed By: #### BMP ####[facility] Mqmdqovppa4129[address] [place], [place] [address]Dr. Shahbaz ChangEGFR-AF IVORIAN>60Normal>=60The [facility] HospitalComment on above: Performed By: #### BMP ####[facility] Sgpbhqddsb95[address] [place], [place] [address]Dr.Shahbaz ChangEGFR-NON AF IVORIAN>60Normal>=60The [facility] HospitalComment on above:Performed By: #### BMP ####[facility] Sgclfkxaid774[address] [place], [place] [address]Dr.Lilajarrod ChangGlucose [Mass/Vol]137 mg/dLCritically vadv54-482Jrv [facility] HospitalComment on above: Performed By: #### BMP ####[facility] Wznebtuxhy3576[address] [place], [place] [address]Dr.Lilajarrod ChangPotassium [Moles/Vol]4.1 mmol/LNormal 3.5-5.1The [facility] HospitalComment on above:Performed By: #### BMP ####[facility] Vpktcqtjre[address] [place], [place] [address]Dr.Shahbaz Ruiz Sodium [Moles/Vol]141 mmol/KFskuhe906-832Gby [facility] HospitalComment on above: Performed By: #### BMP ####[facility] Zrnfrdilbz3010[address] [place], [place] [address]Dr.Lilajarrod ChangUrea nitrogen [Mass/Vol]18.0 mg/dLNormal 7.0-18.0The [facility] HospitalComment on above:Performed By: #### BMP ####[facility] Izafrwgqkl989[address] [place], [place] [address]Dr. Lilajarrod ChangUrea nitrogen/Creatinine [Mass ratio]22.5 mg/mgNormalThe [facility] HospitalComment on above:Performed By: #### BMP ####[facility] Xzzlveuewx1035[address] [place], [place] [address]Dr.Shahbaz RuizCBC AUTO DIFFon 74-41-7128AUIU #0.0 103/ulNormal0.0-0.1The [facility] HospitalComment on above: Performed By: #### CBC ####[facility] Ktrjlihtmn133[address] [place], [place] [address]Dr.Yilan ChangBasophils/100 WBC (Bld)0.0 %Critically low0.2-2.0The [facility] HospitalComment on above:Performed By: #### CBC ####[facility] Snthpjdtzh4184[address] [place], [place] [address]Dr. Yilan ChangEO #0.0 103/ulNormal0.0-0.7The [facility] HospitalComment on above: Performed By: #### CBC ####[facility] Dgusrcyjwe4899[address] [place], [place] [address]Dr.Yilan ChangEosinophils/100 WBC (Bld)0.0 %Critically low0.9-7.0The [facility] HospitalComment on above:Performed By: #### CBC ####[facility] Jhizteibwd49232[address] [place], [place] [address]Dr. Lilajarrod ChangErythrocyte distribution width (RBC) [Ratio]13.8 %Godvfm84.0-15.0The [facility] HospitalComment on above:Performed By: #### CBC ####[facility] Rgouyijyzd7974[address] [place], [place] [address]Dr.Lilajarrod ChangHematocrit (Bld) [Volume fraction]36.9 %Ngoedl93.0-48.0The [facility] HospitalComment on above:Performed By: #### CBC ####[facility] Fjbyrgzvgz03[address] [place], [place] [address]Dr.Shahbaz ChangHemoglobin (Bld) [Mass/Vol]11.8 g/dL Critically low12.0-16.0The [facility] HospitalComment on above:Performed By: #### CBC ####[facility] Qdbcvzebiv387[address] [place], [place] [address]Dr. Yilan ChangIG #0.04 10e3/ulCritically high0.00-0.03The [facility] HospitalComment on above:Performed By: #### CBC ####[facility] Owxizcfpup7589[address] [place], [place] [address]Dr.Lilalan ChangIG %1.1 %Critically high0.0-0.5The [place] HospitalComment on above:Performed By: #### CBC ####[facility] [address] [place] [address]Dr.Shahbaz RuizLYMPH #0.5 103/ulCritically low1.2-3.8The [facility] HospitalComment on above:Performed By: #### CBC ####[facility] [address]nu[address] [address]Dr.Shahbaz RuizLymphocytes/100 WBC (Bld)13.9 %Critically low20.5-60.0The [place] HospitalComment on above:Performed By: #### CBC ####[facility] Qlmixhmlww3759[address] [place], [place] [address]Dr.Shahbaz RuizMANUAL DIFF REQ NONormalThe [facility] HospitalComment on above:Performed By: #### CBC ####[facility] Cvxrckranf5615[address] [place], [place] [address]Dr. Shahbaz RuizMCH (RBC) [Entitic mass]27.8 rsCebyjh82.7-34.0The [facility] Comment on above:Performed By: #### CBC ####[facility] Mkcwhehbuv9328[address] [place], [place] [address]Dr.Shahbaz RuizMCHC (RBC) [Mass/Vol]32.0 g/dL Xahcok21.9-35.2The [facility] HospitalComment on above:Performed By: #### CBC ####[facility] Hfbdlobqck9985[address] [place], [place] [address]Dr. Shahbaz RuizMCV (RBC) [Entitic vol]86.8 cJPchwdq53.0-99.0The [facility] Comment on above:Performed By: #### CBC ####[facility] Pgpjtizhfb1359[address] [place], [place] [address]Dr.Shahbaz RuizMONO #0.1 103/ulCritically low 0.3-0.8The [facility] HospitalComment on above:Performed By: #### CBC ####[facility] Ildfovxymo[address] [place], [place] [address]Dr.Shahbaz Ruiz Monocytes/100 WBC (Bld)3.7 %Normal1.7-12.0The [facility] HospitalComment on above: Performed By: #### CBC ####[facility] [address] [address]Dr.Shahbaz RuizNEUT #3.1 103/ulNormal1.4-6.5The [place] HospitalComment on above:Performed By: #### CBC ####[facility] Jtuywlhxrg6675[address] [place], [place] [address]Dr.Lilajarrod RuizNeutrophils/100 WBC (Bld)81.3 %Critically high43.0-75.0The [place] HospitalComment on above: Performed By: #### CBC ####[facility] Qujllhgszz3578[address] [place], [place] [address]Dr.Shahbaz RuizPlatelet mean volume (Bld) [Entitic vol] 9.8 fLNormal9.5-13.5The [facility] HospitalComment on above:Performed By: #### CBC ####[facility] Eesbbyupja85[address] [place], [place] [address]Dr. Lilajarrod TkoiaJPW258 103/tzUtdaaz915-801Uft [place] HospitalComment on above: Performed By: #### CBC ####[facility] Vdopkpzdzi204[address] [place], [place] [address]Dr.Shahbaz ChangRBC4.25 106/ulNormal4.20-5.40The [facility] HospitalComment on above:Performed By: #### CBC ####[facility] Eohytbmnou98[address] [place], [place] [address]Dr.Lilajarrod RuizWBC3.8 103/ul Critically low4.0-11.0The [facility] HospitalComment on above:Performed By: #### CBC ####[facility] Xrqnvgtxbm[address] [place], [place] [address]DrChen RuizPROF CHEM 8 (BAS METB)on 42-10-8589Jqhhx gap [Moles/Vol]9.2 mmol/L NormalThe [facility] HospitalComment on above:Performed By: #### BMP ####[facility] Gntqxifgrh[address] [place], [place] [address]DrCassius Ruiz Calcium [Mass/Vol]8.6 mg/dLNormal8.5-10.1The Adams County HospitalComment on above: Performed By: #### BMP ####[facility] Ndpdcxltcm4366[address] [place], [place] [address]Dr.Yilan ChangChloride [Moles/Vol]107 mmol/LNormal 98-107The [facility] County HospitalComment on above:Performed By: #### BMP ####[facility] Wcqxlabcpd229426 [address] [place], [place] [address]Dr.Yilan ChangCO2 [Moles/Vol]29.3 mmol/LQyilgi41.0-32.0The [facility] HospitalComment on above: Performed By: #### BMP ####[facility] Aryizunzks665126 [address] [place], [place] [address]Dr.Yilan ChangCreatinine [Mass/Vol]0.79 mg/dLNormal 0.55-1.02The [facility] HospitalComment on above:Performed By: #### BMP ####[facility] Jnvngpsbsr425926 [address] [place], [place] [address]Dr. Yilan ChangEGFR-AF IVORIAN>60Normal>=60The [facility] HospitalComment on above: Performed By: #### BMP ####[facility] Feiphzgezh210726 [address] [place], [place] [address]Dr.Yilan ChangEGFR-NON AF IVORIAN>60Normal>=60The [facility] HospitalComment on above:Performed By: #### BMP ####[facility] Tohkwyfcba758626 [address] [place], [place] [address]Dr.Yilan ChangGlucose [Mass/Vol]159 mg/dLCritically pvsy11-494Iyo [facility] HospitalComment on above: Performed By: #### BMP ####[facility] Rqaovkecub135326 [address] [place], [place] [address]Dr.Yilan ChangPotassium [Moles/Vol]3.5 mmol/LNormal 3.5-5.1The [facility] HospitalComment on above:Performed By: #### BMP ####[facility] Vfmminyzys014326 [address] [place], [place] [address]Dr.Yilan Ruiz Sodium [Moles/Vol]142 mmol/YKotlvw137-589Wij [facility] HospitalComment on above: Performed By: #### BMP ####[facility] Bjlxasdajz522226 [address] [place], [place] [address]Dr.Yilan ChangUrea nitrogen [Mass/Vol]21.0 mg/dL Critically high7.0-18.0The [facility] HospitalComment on above:Performed By: #### BMP ####[facility] Enacqkteqp499326 [address] [place], [place] [address]Dr. Yilan ChangUrea nitrogen/Creatinine [Mass ratio]26.6 mg/mgNormalThe [facility] HospitalComment on above:Performed By: #### BMP ####[facility] Iqofygwyeb013626 [address] [place], [place] [address]Dr.Yilan ChangXR CHEST 2 Von [id number] CHEST 2 VNormalThe [facility] AUTO DIFFon [id number] #0.0 103/ulNormal0.0-0.1The [facility] HospitalComcorewell [facility] on above:Performed By: #### CBC ####[facility] Jtiawantjt906426 [address] [place], [place] [address]Dr. Yilan ChangBasophils/100 WBC (Bld)0.2 %Normal0.2-2.0The [facility] HospitalComcorewell [facility] on above:Performed By: #### CBC ####[facility] Kdrrzpnvgf878426 [address] [place], [place] [address]Dr.Yilan ChangEO #0.0 103/ulNormal0.0-0.7The [facility] HospitalComcorewell [facility] on above:Performed By: #### CBC ####[facility] Spmsfgelht923226 [address] [place], [place] [address]Dr.Yilan ChangEosinophils/100 WBC (Bld)0.0 %Critically low0.9-7.0The [facility] HospitalComcorewell [facility] on above: Performed By: #### CBC ####[facility] Amcnqskjyf213926 [address] [place], [place] [address]Dr.Yilan ChangErythrocyte distribution width (RBC) [Ratio]13.6 %Acilna81.0-15.0The [place] HospitalComment on above:Performed By: #### CBC ####[facility] Gkvyuyfdgv634726 [address] [place], [place] [address]Dr.Shahbaz RuizHematocrit (Bld) [Volume fraction]36.6 %Znsjie07.0-48.0The [place] HospitalComment on above:Performed By: #### CBC ####[facility] Cwjrxbptos888626 [address] [place], [place] [address]Dr.Shahbaz ChangHemoglobin (Bld) [Mass/Vol]11.6 g/dLCritically low12.0-16.0The [place] HospitalComment on above:Performed By: #### CBC ####[facility] Iaabllrfjf295026 [address] [place], [place] [address]Dr.Yilan ChangIG #0.03 10e3/ulNormal0.00-0.03The [facility] HospitalComment on above:Performed By: #### CBC ####[facility] Qvzdzxcggo313926 [address] [place], [place] [address]Dr.Shahbaz ChangIG %0.5 %Normal 0.0-0.5The [facility] HospitalComment on above:Performed By: #### CBC ####[facility] Elfclhaolm886326 [address] [place], [place] [address]Dr.Shahbaz ChangLYMPH #0.6 103/ulCritically low1.2-3.8The [facility] HospitalComment on above:Performed By: #### CBC ####[facility] Vfvkbpufnd245226 [address] [place], [place] [address]Dr.Lilajarrod RuizLymphocytes/100 WBC (Bld)10.7 %Critically low20.5-60.0 The [place] HospitalComment on above:Performed By: #### CBC ####[facility] Zrqvileief142426 [address] [place], [place] [address]Dr.Shahbaz RuizMANUAL DIFF REQNONormalThe [facility] HospitalComment on above:Performed By: #### CBC ####[facility] Saqtvoofvx152026 [address] [place], [place] [address]Dr. Shahbaz RuizMCH (RBC) [Entitic mass]27.7 gkFlkqmi07.7-34.0The [facility] Comment on above:Performed By: #### CBC ####[facility] Jdafmticxs39[address] [place] [address]Dr.Shahbaz Juan FMCHC (RBC) [Mass/Vol]31.7 g/dL Ksrhzr66.9-35.2The [facility] HospitalComment on above:Performed By: #### CBC ####[facility] Gzadxcrazi305626 [address] [place], [place] [address]Dr. Shahbaz RuizMCV (RBC) [Entitic vol]87.4 uKKtofvk31.0-99.0The [facility] Comment on above:Performed By: #### CBC ####[facility] Azjzloeoji314326 [address] [place], [place] [address]Dr.Shahbaz KnoxO #0.1 103/ulCritically low 0.3-0.8The [facility] HospitalComment on above:Performed By: #### CBC ####[facility] Kqogfwcqqf098826 [address] [place], [place] [address]Dr.Shahbaz Ruiz Monocytes/100 WBC (Bld)2.5 %Normal1.7-12.0The [facility] HospitalComment on above: Performed By: #### CBC ####[facility] Oqncskknmg924226 [address] [place], [place] [address]Dr.Shahbaz RuizNEUT #4.8 103/ulNormal1.4-6.5The [facility] HospitalComment on above:Performed By: #### CBC ####[facility] Eppamjystq009726 [address] [place], [place] [address]Dr.Shahbaz RuizNeutrophils/100 WBC (Bld)86.1 %Critically high43.0-75.0The [place] HospitalComment on above: Performed By: #### CBC ####[facility] Xofnznwmcc754826 [address] [place], [place] [address]Dr.Shahbaz RuizPlatelet mean volume (Bld) [Entitic vol] 10.0 fLNormal9.5-13.5The [place] HospitalComment on above:Performed By: #### CBC ####[facility] Ilbooxbpff0313[address] [place], [place] [address]Dr. Shahbaz MtzcgOXH696 103/pcHktbwm041-067Ivq [facility] HospitalComment on above: Performed By: #### CBC ####[facility] Uknqekhesw077326 [address] [place], [place] [address]Dr.Shahbaz ChangRBC4.19 106/ulCritically low4.20-5.40The [facility] HospitalComment on above:Performed By: #### CBC ####[facility] Bwodxtywpu632726 [address] [place], [place] [address]Dr.Shahbaz RuizWBC5.6 103/ul Normal4.0-11.0The [facility] HospitalComment on above:Performed By: #### CBC ####[facility] Ijmocbnitc440626 [address] [place], [place] [address]Dr. Shahbaz RuizPROF CHEM 8 (BAS METB)on 34-02-7661Gvlww gap [Moles/Vol]12.7 mmol/L NormalThe [facility] HospitalComment on above:Performed By: #### BMP ####[facility] Rgyywyvdbl043826 [address] [place], [place] [address]Dr.Shahbaz Ruiz Calcium [Mass/Vol]8.8 mg/dLNormal8.5-10.1The [facility] HospitalComment on above: Performed By: #### BMP ####[facility] Turoqbsmcy551426 [address] [place], [place] [address]Dr.Shahbaz ChangChloride [Moles/Vol]107 mmol/LNormal 98-107The [facility] HospitalComment on above:Performed By: #### BMP ####[facility] Rmhjeajsbd040426 [address] [place], [place] [address]Dr.Shahbaz ChangCO2 [Moles/Vol]26.9 mmol/DSvjxlv35.0-32.0The [facility] HospitalComment on above: Performed By: #### BMP ####[facility] Blqrttraul923826 [address] [place], [place] [address]Dr.Shahbaz ChangCreatinine [Mass/Vol]0.81 mg/dLNormal 0.55-1.02The [facility] HospitalComment on above:Performed By: #### BMP ####[facility] Zznraypmgd47[address] [place] [address]Dr. Yilan ChangEGFR-AF IVORIAN>60Normal>=60The [facility] HospitalComment on above: Performed By: #### BMP ####[facility] Xdhtjoiabt114126 [address] [place], [place] [address]Dr.Yilan ChangEGFR-NON AF IVORIAN>60Normal>=60The [facility] HospitalComment on above:Performed By: #### BMP ####[facility] Dvobbaxrth241526 [address] [place], [place] [address]Dr.Yilan ChangGlucose [Mass/Vol]144 mg/dLCritically ltce99-451Vff [facility] HospitalComment on above: Performed By: #### BMP ####[facility] Wcejwyfwzn889226 [address] [place], [place] [address]Dr.Yilan ChangPotassium [Moles/Vol]3.6 mmol/LNormal 3.5-5.1The [facility] HospitalComment on above:Performed By: #### BMP ####[facility] Dubiydlelj031426 [address] [place], [place] [address]Dr.Yilan Ruiz Sodium [Moles/Vol]143 mmol/RXqmhzf615-183Qnj [facility] HospitalComment on above: Performed By: #### BMP ####[facility] Zqexcsalwy965926 [address] [place], [place] [address]Dr.Yilan ChangUrea nitrogen [Mass/Vol]20.0 mg/dL Critically high7.0-18.0The [facility] HospitalComment on above:Performed By: #### BMP ####[facility] Fszmagudgj839526 [address] [place], [place] [address]Dr. Yilan ChangUrea nitrogen/Creatinine [Mass ratio]24.7 mg/mgNormalThe [facility] HospitalComment on above:Performed By: #### BMP ####[facility] Uukskemehy132326 [address] [place], [place] [address]Dr.Yilan ChangCBC W MANUAL DIFFon [id number] LYMPH #NormalThe [facility] HospitalComment on above: Performed By: #### CBCMAN ####[facility] Pmjboihgse929[address] [place], [place] [address]Dr. Yilan ChangATYPICAL LYMPH %NormalThe [place] HospitalComment on above:Performed By: #### CBCMAN ####[facility] Jjizxvwlrg12[address] [place] [address]Dr. Yilan ChangBAND #0.0 103/ulNormal0.0-0.3The [place] HospitalComment on above:Performed By: #### CBCMAN ####[facility] Ojzomzsmbb05[address] [place], [place] [address]Dr. Yilan ChangBAND %0 %Normal0-5The [place] HospitalComment on above: Performed By: #### CBCBRICE ####[facility] Ggdwoaznba842726 [address] [place], [place] [address]Dr. Yilan ChangBASOM #0.00 103/ulNormal0.00-0.10The [place] HospitalComment on above:Performed By: #### CBCBRICE ####[facility] Hldtqjelmz621926 [address] [place], [place] [address]Dr. Yilan ChangBASOM %0.0 %Critically low0.2-2.0The [place] HospitalComment on above:Performed By: #### CBCBRICE ####[facility] Fqestrhkki411126 [address] [place], [place] [address]Dr. Yilan ChangBLAST #NormalThe [place] HospitalComment on above:Performed By: #### CBCBRICE ####[facility] Ebhfdxwrcy251126 [address] [place], [place] [address]Dr. Yilan ChangBLAST %NormalThe [place] HospitalComment on above: Performed By: #### CBCBRICE ####[facility] Tiwbuncdyc146526 [address] [place], [place] [address]Dr. Yilan ChangCORRECTED WBCNormal4.0-11.0The [place] HospitalComment on above:Performed By: #### CBCBRICE ####[facility] Sgwkvjqcod854426 [address] [place], [place] [address]Dr. Yilan ChangEOS #0.00 103/ulNormal0.00-0.70The [place] HospitalComment on above:Performed By: #### CBCMAN ####[facility] Gsbteawigp12[address] [place] [address]Dr. Yilan ChangEOS%0.0 %Critically low0.9-7.0The [facility] HospitalComment on above:Performed By: #### CBCBRICE ####[facility] Jzggnrshzu27[address] [place] [address]Dr. Shahbaz PcjdxLWV36.5 %Xzztbe08.0-48.0The [facility] HospitalComment on above:Performed By: #### CBCBRICE ####[facility] Gpmspxencd6218 [place] [address]Dr. Shahbaz ChangHGB 11.8 g/dlCritically low12.0-16.0The [facility] HospitalComment on above:Performed By: #### CBCBRICE ####[facility] Cyilrchfwc75[address] [place] [address]Dr. Lilalan ChangLYMPHM #0.42 103/ulCritically low1.20-3.80The [facility] HospitalComment on above:Performed By: #### CBCBRICE ####[facility] Mdepxtzowl274[address] [place], [place] [address]Dr. Shahbaz ChangLYMPHM%12.0 % Critically low20.5-60.0The [facility] HospitalComment on above:Performed By: #### CBCBRICE ####[facility] Hizwnfczuv6513[address] [place], [place] [address]Dr. Shahbaz WxakqIHE72.0 zkRzoedj29.7-34.0The [facility] HospitalComment on above:Performed By: #### CBCBRICE ####[facility] Dnokvobwbf18[address] [place] [address]Dr. Shahbaz RemajJHXL16.3 g/dzHprfrv69.9-35.2The [facility] HospitalComment on above:Performed By: #### CBCBRICE ####[facility] Ulfaigmvva008926 [address] [place], [place] [address]Dr. Lilalan ChangMCV 86.7 aKCnatpd96.0-99.0The [facility] HospitalComment on above:Performed By: #### CBCMAN ####[facility] Gmfbocllqs3[address] [place] [address]Dr. Yilan ChangMETAMYELOCYTE #NormalMercy Health HospitalComment on above: Performed By: #### CBCMAN ####[facility] Tscaoztzzm9[address] [place] [address]Dr. Yilan ChangMETAMYELOCYTE %NormalThe [place] HospitalComment on above:Performed By: #### CBCBRICE ####[facility] Eijbsilarv5[address] [place] [address]Dr. Yilan ChangMONOM#0.07 103/ulCritically low0.30-0.80The [place] HospitalComment on above:Performed By: #### CBCBRICE ####[facility] Vaznryuitp932026 [address] [place], [place] [address]Dr. Yilan ChangMONOM%2.0 %Normal1.7-12.0The [facility] HospitalComment on above:Performed By: #### CBCBRICE ####[facility] Gbszqurvkf940026 [address] [place], [place] [address]Dr. Yilan ChangMPV9.9 fLNormal9.5-13.5The [facility] HospitalComment on above:Performed By: #### CBCBRICE ####[facility] Mpdpvmwcqx729326 [address] [place], [place] [address]Dr. Yilan ChangMYELOCYTE # NormalRegency Hospital Cleveland WestComment on above:Performed By: #### CBCBRICE ####[facility] Hsmckcuhtw416726 [address] [place], [place] [address]Dr. Yilan ChangMYELOCYTE %NormalMercy Health HospitalComment on above:Performed By: #### CBCMAN ####[facility] Mjvrlgsvxu7[address] [place], [place] [address]Dr. Yilan ChangNRBCNormalThe [facility] HospitalComment on above:Performed By: #### CBCMAN ####[facility] Ielxmswlaa147526 [address] [place], [place] [address]Dr. Yilan AitovJCC453 103/gmQhkfic038-846Wzs [place] HospitalComment on above:Performed By: #### CBCMAN ####[facility] Dranapenre4969[address] [place], [place] [address]Dr. Shahbaz ChangRBC4.21 106/ulNormal4.20-5.40The [facility] HospitalComment on above:Performed By: #### CBCBRICE ####[facility] Xpvwvguwxp572426 [address] [place], [place] [address]Dr. Shahbaz ChangRDW 13.2 %Irpuut47.0-15.0The [facility] HospitalComment on above:Performed By: #### CBCBRICE ####[facility] Gpsoosgchn680826 [address] [place], [place] [address]Dr. Shahbaz ChangSEG #3.01 103/ulNormal1.40-6.50The [facility] HospitalComment on above:Performed By: #### CBCBRICE ####[facility] Cemxxqxnza418026 [address] [place], [place] [address]Dr. Shahbaz ChangSEG %86.0 %Critically high 43.0-75.0The [facility] HospitalComment on above:Performed By: #### CBCBRICE ####[facility] Brpzqnsnes142526 [address] [place], [place] [address]Dr. Shahbaz ChangWBC3.5 103/ulCritically low4.0-11.0The [facility] HospitalComment on above:Performed By: #### CBCBRICE ####[facility] Kclckcyyba859826 [address] [place], [place] [address]Dr. Shahbaz ChangPROF CHEM 8 (BAS METB)on 01-04-2023 Anion gap [Moles/Vol]10.5 mmol/LNormalThe [facility] HospitalComment on above: Performed By: #### BMP ####[facility] Uhxdxyglke871026 [address] [place], [place] [address]Dr.Shahbaz ChangCalcium [Mass/Vol]8.7 mg/dLNormal 8.5-10.1The [facility] HospitalComment on above:Performed By: #### BMP ####[facility] Pejfikmwqi479326 [address] [place], [place] [address]Dr. Shahbaz ChangChloride [Moles/Vol]108 mmol/LCritically dhtd44-252Uvj [facility] HospitalComment on above:Performed By: #### BMP ####[facility] Xtmdogjtey6[address] [place] [address]Dr.Yilan ChangCO2 [Moles/Vol] 25.2 mmol/QTfukej58.0-32.0The [facility] HospitalComment on above:Performed By: #### BMP ####[facility] Lkpeqzcdmp86[address] [place] [address]Dr.Yilan ChangCreatinine [Mass/Vol]0.77 mg/dLNormal0.55-1.02The [facility] HospitalComment on above:Performed By: #### BMP ####[facility] Jygherkfpg66[address] [place] [address]Dr.Yilan ChangEGFR-AF IVORIAN>60Normal>=60The [facility] HospitalComment on above:Performed By: #### BMP ####[facility] Rvlqmcirji114726 [address] [place], [place] [address]Dr. Yilan ChangEGFR-NON AF IVORIAN>60Normal>=60The [facility] HospitalComment on above:Performed By: #### BMP ####[facility] Znhvqbfbdh958926 [address] [place], [place] [address]Dr.Yilan ChangGlucose [Mass/Vol]169 mg/dLCritically awbh20-849Ulq [facility] HospitalComment on above:Performed By: #### BMP ####[facility] Hshmsjefor512026 [address] [place], [place] [address]Dr. Yilan ChangPotassium [Moles/Vol]3.7 mmol/LNormal3.5-5.1The [facility] Comment on above:Performed By: #### BMP ####[facility] Ilomnfypww119526 [address] [place], [place] [address]Dr.Yilan ChangSodium [Moles/Vol]140 mmol/L Ieaces165-557Svm [facility] HospitalComment on above:Performed By: #### BMP ####[facility] Gveaexwvdi988426 [address] [place], [place] [address]Dr. Yilan ChangUrea nitrogen [Mass/Vol]14.0 mg/dLNormal7.0-18.0The [facility] Comment on above:Performed By: #### BMP ####[facility] Powmkgscva491526 [address] [place], [place] [address]Dr.Shahbaz ChangUrea nitrogen/Creatinine [Mass ratio]18.2 mg/mgNormalThe [facility] HospitalComment on above:Performed By: #### BMP ####[facility] Sbgboqtwod232426 [address] [place], [place] [address]Dr. Shahbaz RuizRESPIRATORY PANEL PLUSon [id number] detectedNormalNOT DETECTEDThe [facility] HospitalComment on above:Performed By: #### RSPLUS ####[facility] Nyddyvdzpm963626 [address] [place], [place] [address]Dr. Shahbaz RuizB. ParapertusisNot detectedNormalNOT DETECTEDThe [facility] Comment on above:Performed By: #### RSPLUS ####[facility] Uxiasbruto901826 [address] [place], [place] [address]Dr. Shahbaz RuizB. PertussisNot detected NormalNOT DETECTEDThe [facility] HospitalComment on above:Performed By: #### RSPLUS ####[facility] Tslbrblomv976126 [address] [place], [place] [address]Dr. Shahbaz RuizChlamydia PneumoniaeNot detectedNormalNOT DETECTEDThe [facility] HospitalComcorewell [facility] on above:Performed By: #### RSPLUS ####[facility] Mzncdbelsn167026 [address] [place], [place] [address]Dr. Shahbaz Ruiz Coronavirus 229ENot detectedNormalNOT DETECTEDThe [facility] HospitalComcorewell [facility] on above:Performed By: #### RSPLUS ####[facility] Boouyiiyhb827826 [address] [place], [place] [address]Dr. Shahbaz ChangCoronavirus BHB7Oxm detectedNormalNOT DETECTEDThe [facility] HospitalComment on above:Performed By: #### RSPLUS ####[facility] Vqznoufnys835426 [address] [place], [place] [address]Dr. Lilalan ChangCoronavirus JA62Qfn detectedNormalNOT DETECTEDThe [facility] Comment on above:Performed By: #### RSPLUS ####[facility] Kiuifakzik061326 [address] [place], [place] [address]Dr. Shahbaz ChangCoronavirus DD30Noy detected NormalNOT DETECTEDThe [facility] HospitalComcorewell [facility] on above:Performed By: #### RSPLUS ####[facility] Qxizpdpjjn9[address] [place] [address]Dr. Shahbaz RuizInfluenza A H1Not detectedNormalNOT DETECTEDThe [facility] HospitalComcorewell [facility] on above:Performed By: #### RSPLUS ####[facility] Kirtqecodr1256[address] [place], [place] [address]Dr. Shahbaz RuizInfluenza A H1 2009Not detectedNormalNOT DETECTEDThe [facility] HospitalComcorewell [facility] on above: Performed By: #### RSPLUS ####[facility] Nxsbjqbpnp908626 [address] [place], [place] [address]Dr. Shahbaz RuizInfluenza A H3Not detectedNormalNOT DETECTEDThe [facility] HospitalComcorewell [facility] on above:Performed By: #### RSPLUS ####[facility] Tldblbnjdm466326 [address] [place], [place] [address]Dr. Shahbaz ChangInfluenza BNot detectedNormalNOT DETECTEDThe [facility] HospitalComcorewell [facility] on above:Performed By: #### RSPLUS ####[facility] Lnvofvwmqw958526 [address] [place], [place] [address]Dr. Yilan ChangMetapneumovirusDetectedAbnormalNOT DETECTEDThe [facility] HospitalComcore[facility] on above:Performed By: #### RSPLUS ####[facility] Hcslnxzyqf013026 [address] [place], [place] [address]Dr. Shahbaz RuizMycoplas. PneumoniaeNot detectedNormalNOT DETECTEDThe [facility] HospitalComcore[facility] on above:Performed By: #### RSPLUS ####[facility] Omckjyzvjo445826 [address] [place], [place] [address]Dr. Yilan ChangParainfluenza 1Not detectedNormalNOT DETECTEDThe [facility] HospitalComcore[facility] on above:Performed By: #### RSPLUS ####[facility] Zwkdncjekb934326 [address] [place], [place] [address]Dr. Yilan ChangParainfluenza 2Not detectedNormalNOT DETECTEDThe [facility] HospitalComcore[facility] on above:Performed By: #### RSPLUS ####[facility] Msppyxlgla883726 [address] [place], [place] [address]Dr. Shahbaz Ruiz Parainfluenza 3Not detectedNormalNOT DETECTEDThe [facility] HospitalComment on above:Performed By: #### RSPLUS ####[facility] Hueybslduz132926 [address] [place], [place] [address]Dr. Shahbaz RuizParainfluenza 4Not detectedNormalNOT DETECTEDThe [facility] HospitalComment on above:Performed By: #### RSPLUS ####[facility] Yqquxmdjbu520126 [address] [place], [place] [address]Dr. Shahbaz RuizRhino/EnterovirusNot detectedNormalNOT DETECTEDThe [facility] Comment on above:Performed By: #### RSPLUS ####[facility] Ajtwjhtakm155926 [address] [place], [place] [address]Dr. Shahbaz Mckenzie Header 1RESPIRATORY PANEL: VIRUSESNoMetroHealth Parma Medical CenterComment on above:Performed By: #### RSPLUS ####[facility] Mwjcveycyd889326 [address] [place], [place] [address]Dr. Shahbaz Mckenzie Header 2RESPIRATORY PANEL: BACTERIANoMetroHealth Parma Medical CenterComment on above:Performed By: #### RSPLUS ####[facility] Dmihyrtvoa630526 [address] [place], [place] [address]Dr. Shahbaz ChangRSVNot detectedNormalNOT DETECTEDThe [facility] HospitalComment on above:Performed By: #### RSPLUS ####[facility] Priqsqqess246026 [address] [place], [place] [address]Dr. Shahbaz Lemos-CoV-2 (COVID-19) RNA PAVAN+probe Ql (Unsp spec)Not detectedNormalNOT DETECTEDThe [facility] HospitalComment on above:Performed By: #### RSPLUS ####[facility] Nhopmmlwvm687626 [address] [place], [place] [address]Dr. Shahbaz Roche ROSALINA 3-6on 57-75-1402MD [Catalytic activity/Vol]148 U/TLzvbly13-636Mdr [facility] HospitalComment on above:Performed By: #### CMREP ####[facility] Bzgtpwbtkx[address] [place] [address]Dr. Shahbaz RuizCK.MB [Mass/Vol]0.84 ng/mLNormal<=3.60The [facility] HospitalComment on above:Performed By: #### CMREP ####[facility] Ycywavkbru4215[address] [place], [place] [address]Dr. Shahbaz RuizHSTROP6.4 pg/mLNormal4.0-51.3The [facility] HospitalComment on above:Result Comment: CUT-OFF POINTS HAVE BEEN ESTABLISHED BASED ON THE FOURTH UNIVERSAL DEFINITIONS OF MYOCARDIALINFARCTION. THE UPPER REFERENCE LIMIT (URL) OF TROPONIN, DEFINED THE 99TH PERCENTILE OFcT nI DISTRIBUTION IN A REFERENCE POPULATION, HAS BEEN CONFIRMED THE DECISION THRESHOLDFOR SC DIAGNOSIS.Performed By: #### CMREP ####[facility] Ejmuqxiica6401[address] [place], [place] [address]Dr. Shahbaz RuizCBC W MANUAL DIFFon [id number] LYMPH #NormalThe [facility] HospitalComment on above: Performed By: #### CBCMAN ####[facility] Rraxipeggp6354[address] [place], [place] [address]Dr. Yilan ChangATYPICAL LYMPH %NormalThe [facility] HospitalComment on above:Performed By: #### CBCMAN ####[facility] Rhsfohxxda301926 [address] [place], [place] [address]Dr. Yilan ChangBAND #0.0 103/ulNormal0.0-0.3The [place] HospitalComment on above:Performed By: #### CBCMAN ####[facility] Dcmbxxzzdr7675[address] [place], [place] [address]Dr. Yilan ChangBAND %0 %Normal0-5The [facility] HospitalComment on above: Performed By: #### CBCMAN ####[facility] Sotmyvclic774326 [address] [place], [place] [address]Dr. Yilan ChangBASOM #0.00 103/ulNormal0.00-0.10The [place] HospitalComment on above:Performed By: #### CBCMAN ####[facility] Gjzzgteeug418926 [address] [place], [place] [address]Dr. Yilan ChangBASOM %0.0 %Critically low0.2-2.0The [facility] HospitalComment on above:Performed By: #### CBCMAN ####[facility] S[address]yjxalxi4[address] [place] [address]Dr. Yilan ChangBLAST #NormalThe [facility] HospitalComment on above:Performed By: #### CBCMAN ####[facility] Zwyngttyjm720226 [address] [place], [place] [address]Dr. Yilan ChangBLAST %NormalThe [facility] HospitalComment on above: Performed By: #### CBCMAN ####[facility] Fgimflwups253826 [address] [place], [place] [address]Dr. Yilan ChangCORRECTED WBCNormal4.0-11.0The [facility] HospitalComment on above:Performed By: #### CBCMAN ####[facility] Chttohiret732726 [address] [place], [place] [address]Dr. Yilan ChangEOS #0.02 103/ulNormal0.00-0.70The [facility] HospitalComment on above:Performed By: #### CBCBRICE ####[facility] Cjfmdwdube710526 [address] [place], [place] [address]Dr. Yilan ChangEOS%1.0 %Normal0.9-7.0The [facility] HospitalComment on above: Performed By: #### CBCBRICE ####[facility] Ocxmzxfxkw425726 [address] [place], [place] [address]Dr. Yilan PaeirMDW04.5 %Fhclxv25.0-48.0The [facility] HospitalComment on above:Performed By: #### CBCMAN ####[facility] Wswkerxhox035026 [address] [place], [place] [address]Dr. Yilan VlgsrUWV63.0 g/dl Gjgprv63.0-16.0The [facility] HospitalComment on above:Performed By: #### CBCMAN ####[facility] Rqtnbavyrs309226 [address] [place], [place] [address]Dr. Yilan ChangLYMPHM #0.21 103/ulCritically low1.20-3.80The [facility] Comment on above:Performed By: #### CBCMAN ####[facility] Cdvvnwvtiz40[address] [place] [address]Dr. Shahbaz ChangLYMPHM%13.0 %Critically low 20.5-60.0The [facility] HospitalComment on above:Performed By: #### CBCMAN ####[facility] Smamhaueib47[address] [place] [address]Dr. Yijarrod VrhisFSA54.8 ixTjvcfl45.7-34.0The [facility] HospitalComment on above: Performed By: #### CBCBRICE ####[facility] Lbodrwyrbf374626 [address] [place], [place] [address]Dr. Yilan ZichvPBXR68.0 g/ldJfbkcp89.9-35.2The [facility] HospitalComment on above:Performed By: #### CBCBRICE ####[facility] Tcyjooqopz100926 [address] [place], [place] [address]Dr. Yilan ChangMCV 86.8 dKIgnzah63.0-99.0The [facility] HospitalComment on above:Performed By: #### CBCMAN ####[facility] Egnpixmjsx322626 [address] [place], [place] [address]Dr. Yilan ChangMETAMYELOCYTE #NormalThe [facility] HospitalComment on above: Performed By: #### CBCMAN ####[facility] Xeylsevlfk712026 [address] [place], [place] [address]Dr. Yilan ChangMETAMYELOCYTE %NormalThe [facility] HospitalComment on above:Performed By: #### CBCMAN ####[facility] Yoygyzhhvc946826 [address] [place], [place] [address]Dr. Yilan ChangMONOM#0.02 103/ulCritically low0.30-0.80The [facility] HospitalComment on above:Performed By: #### CBCMAN ####[facility] Sndionidor435726 [address] [place], [place] [address]Dr. Yilan ChangMONOM%1.0 %Critically low1.7-12.0The [facility] Comment on above:Performed By: #### CBCMAN ####[facility] Bjzzpvegyo024226 [address] [place], [place] [address]Dr. Yilan ChangMPV9.5 fLNormal9.5-13.5The [facility] HospitalComment on above:Performed By: #### CBCBRICE ####[facility] Skjjwtsjrg27[address] [place] [address]Dr. Shahbaz Ruiz MYELOCYTE #NormalThe [facility] HospitalComment on above:Performed By: #### CBCBRICE ####[facility] Hjcexkrzpd224[address] [place] [address]Dr. Yilan ChangMYELOCYTE %NormalThe [place] HospitalComment on above:Performed By: #### CBCBRICE ####[facility] Cylyesujkj04[address] [place] [address]Dr. Yilan ChangNRBCNormalThe [facility] HospitalComment on above:Performed By: #### CBCBRICE ####[facility] Kfgpcadbws578526 [address] [place], [place] [address]Dr. Shahbaz HskkjVWV115 103/ssGpydxn598-244Rkd [facility] HospitalComment on above:Performed By: #### CBCBRICE ####[facility] Earwwvvcqq023626 [address] [place], [place] [address]Dr. Yijarrod ChangRBC4.32 106/ulNormal4.20-5.40The [facility] HospitalComment on above:Performed By: #### CBCBRICE ####[facility] Kmplphdlrh857426 [address] [place], [place] [address]Dr. Shahbaz ChangRDW 13.1 %Mdywxl77.0-15.0The [facility] HospitalComment on above:Performed By: #### CBCBRICE ####[facility] Dhewsgwutd725726 [address] [place], [place] [address]Dr. Lilalan ChangSEG #1.36 103/ulCritically low1.40-6.50The [facility] Comment on above:Performed By: #### CBCBRICE ####[facility] Ssrlzdictm914026 [address] [place], [place] [address]Dr. Shahbaz ChangSEG %85.0 %Critically high 43.0-75.0The [facility] HospitalComment on above:Performed By: #### CBCBRICE ####[facility] Vitbvkjcfs2419 [address] Main StreetBellevue, [place] [address]Fw. Yilan ChangWBC1.6 103/ulCritically low4.0-11.0[facility] WestComment on above:Performed By: #### CBCMAN ####[facility] Kfipcvqnou703826 [address] [place], [place] [address]Dr. Yilan ChangCT CHEST WO CONon [id number] CHEST WO CONNormalRegency Hospital Cleveland WestER URINE PROFILEon 50-00-5235Ikhdbckue Ql (U) NegativeNormalNEGATIVERegency Hospital Cleveland WestComment on above:Performed By: #### ERUR ####[facility] Cejdgzdlsn470226 [address] [place], [place] [address]Dr. Yilan ChangClarity (U)CLEARNormalCLEARRegency Hospital Cleveland WestComment on above:Performed By: #### ERUR ####[facility] Emglzkdxvy684826 [address] [place], [place] [address]Dr. Yilan ChangColor (U)LT. YELLOWNormalYELLOWRegency Hospital Cleveland WestComment on above:Performed By: #### ERUR ####[facility] Bosmkejwsf416026 [address] [place], [place] [address]Dr. Yilan ChangERUAHDA micrscopic examination will be performed if indicated.NormalRegency Hospital Cleveland WestComment on above:Performed By: #### ERUR ####[facility] Vmzjbaogbl710126 [address] [place], [place] [address]Dr. Yilan ChangGlucose Ql (U) NegativeNormalNEGATIVERegency Hospital Cleveland WestComment on above:Performed By: #### ERUR ####[facility] Gwucwkimqj979226 [address] [place], [place] [address]Dr. Yilan ChangHemoglobin Ql (U)NegativeNormalNEGATIVEOhiohealth Arthur G.[facility] on above:Performed By: #### ERUR ####[facility] Yyfjlebxvu680326 [address] [place], [place] [address]Dr. Yilan ChangKetones Ql (U)NegativeNormal NEGATIVERegency Hospital Cleveland WestComment on above:Performed By: #### ERUR ####[facility] Ozsrbackuw734026 [address] [place], [place] [address]Dr. Yilan ChangLEUKOCYTESNegativeNormalNEGATIVEMemorial Health System Selby General Hospitalue HospitalComment on above:Performed By: #### ERUR ####[facility] Fftquilomn85[address] [place] [address]Dr. Shahbaz ChangNitrite Ql (U)NegativeNormalNEGATIVEThe [place] HospitalComment on above:Performed By: #### ERUR ####[facility] Lmhcckycmz596826 [address] [place], [place] [address]Dr. Shahbaz ChangpH (U)6.0 [pH]Normal5-9The [place] HospitalComment on above:Performed By: #### ERUR ####[facility] Uerqfsxcim071026 [address] [place], [place] [address]Dr. Shahbaz ChangSPEC GRAVITY<=1.111Lezsclgn6.005-<=1.025The [facility] HospitalComment on above:Performed By: #### ERUR ####[facility] Jbabqzawmf100226 [address] [place], [place] [address]Dr. Shahbaz ChangUA PROTEINNegativeNormalNEGATIVE/ TRACE The [place] HospitalComment on above:Performed By: #### ERUR ####[facility] Yqdkfqlmjt726926 [address] [place], [place] [address]Dr. Shahbaz RuizUR MICRO INDNOT INDICATEDNormalThe [facility] HospitalComment on above:Performed By: #### ERUR ####[facility] Cdwjgkxvvw808226 [address] [place], [place] [address]Dr. Shahbaz RuizUrobilinogen Qn (U)0.2 {Melida'U}/dLNormal0.2 - 1.0The [place] HospitalComment on above:Performed By: #### ERUR ####[facility] Zcksshxfsb740326 [address] [place], [place] [address]Dr. Shahbaz RuizLACTATE/LACTIC ACIDon 59-20-7297Vxowpch [Moles/Vol]1.5 mmol/LNormal0.4-2.0The [facility] HospitalComment on above:Performed By: #### LACT ####[facility] Rbgckiaitm874826 [address] [place], [place] [address]Dr. Shahbaz RuizPROF CHEM 8 (BAS METB)on 78-26-7371Gpvzl gap [Moles/Vol]11.6 mmol/LNormalThe [facility] HospitalComment on above:Performed By: #### BMP ####[facility] Xoljbijnvz928926 [address] [place], [place] [address]Dr.Yilan ChangCalcium [Mass/Vol]8.1 mg/dLCritically low8.5-10.1The [facility] HospitalComment on above: Performed By: #### BMP ####[facility] Mehegodhvc804526 [address] [place], [place] [address]Dr.Yilan ChangChloride [Moles/Vol]109 mmol/LCritically neym42-272Ikh [facility] HospitalComment on above:Performed By: #### BMP ####[facility] Mamdqlexus171326 [address] [place], [place] [address]Dr. Yilan ChangCO2 [Moles/Vol]25.2 mmol/YZfurcl44.0-32.0The [facility] HospitalComment on above:Performed By: #### BMP ####[facility] Qpugmrbcuq475926 [address] [place], [place] [address]Dr.Yilan ChangCreatinine [Mass/Vol]0.89 mg/dLNormal 0.55-1.02The [facility] HospitalComment on above:Performed By: #### BMP ####[facility] Yhcfyjfzfb712326 [address] [place], [place] [address]Dr. Yilan ChangEGFR-AF IVORIAN>60Normal>=60The [facility] HospitalComment on above: Performed By: #### BMP ####[facility] Upzhrjhnoc1301[address] [place], [place] [address]Dr.Yilan ChangEGFR-NON AF IVORIAN>60Normal>=60The [facility] HospitalComment on above:Performed By: #### BMP ####[facility] Kdhwjsxmgw384426 [address] [place], [place] [address]Dr.Yilan ChangGlucose [Mass/Vol]167 mg/dLCritically qwrv65-554Yjw [facility] HospitalComment on above: Performed By: #### BMP ####[facility] Pohuiisoyt182726 [address] [place], [place] [address]Dr.Yilan ChangPotassium [Moles/Vol]3.8 mmol/LNormal 3.5-5.1The [facility] HospitalComment on above:Performed By: #### BMP ####[facility] Qrvyrfqqgx39[address] [place] [address]Dr.Shahbaz Ruiz Sodium [Moles/Vol]142 mmol/VTnpjno297-799Ipg [facility] on above: Performed By: #### BMP ####[facility] Watexhlupt741126 [address] [place], [place] [address]Dr.Shahbaz ChangUrea nitrogen [Mass/Vol]9.0 mg/dLNormal 7.0-18.0The [facility] HospitalComcorewell health [facility] on above:Performed By: #### BMP ####[facility] Mrheayjvgb106626 [address] [place], [place] [address]Dr. Shahbaz ChangUrea nitrogen/Creatinine [Mass ratio]10.1 mg/mgNormalThe [facility] HospitalComcorewell health [facility] on above:Performed By: #### BMP ####[facility] Tbokdntbvi624826 [address] [place], [place] [address]Dr.Shahbaz RuizCARDIAC ROSALINA ADMITon 60-03-7226CJ [Catalytic activity/Vol]173 U/XXzckek79-384Had [facility] on above:Performed By: #### CMAROXANNA, BMP ####[facility] Xlcdezmjup854026 [address] [place], [place] [address]Dr. Lilajarrod Juan FCK.MB [Mass/Vol]0.55 ng/mLNormal<=3.60The [facility] on above:Performed By: #### CMADM, BMP ####[facility] Fcokiughze871426 [address] [place], [place] [address]Dr. Shahbaz RuizHSTROP5.9 pg/mLNormal4.0-51.3The [facility] on above:Result Comment: CUT-OFF POINTS HAVE BEEN ESTABLISHED BASED ON THE FOURTH UNIVERSAL DEFINITIONS OF MYOCARDIALINFARCTION. THE UPPER REFERENCE LIMIT (URL) OF TROPONIN, DEFINED THE 99TH PERCENTILE OFcT nI DISTRIBUTION IN A REFERENCE POPULATION, HAS BEEN CONFIRMED THE DECISION THRESHOLDFOR SC DIAGNOSIS.Performed By: #### CMADM, BMP ####[facility] Kcjefkqmnr3[address] [place] [address]Dr. Yilan FyuwrTSY19 ng/mL Normal9-82The [place] HospitalComment on above:Performed By: #### CMADM, BMP ####[facility] Wfxxglxuar96[address] [place] [address]Dr. Yilan Juan FCBC W MANUAL DIFFon 05-24-5310VEFLSROI LYMPH #NormalThe [place] HospitalComment on above:Performed By: #### CBCMAN ####[facility] Zmgosjppxe468[address] [place], [place] [address]Dr. Yilan ChangATYPICAL LYMPH %NormalThe [place] HospitalComment on above:Performed By: #### CBCMAN ####[facility] Oywwevgqfr597726 [address] [place], [place] [address]Dr. Yilan ChangBAND #Normal0.0-0.3The [place] HospitalComment on above:Performed By: #### CBCMAN ####[facility] Gbjcisallp108026 [address] [place], [place] [address]Dr. Yilan ChangBAND %Normal0-5The [place] HospitalComment on above: Performed By: #### CBCMAN ####[facility] Pdkvoieswn688726 [address] [place], [place] [address]Dr. Yilan ChangBASOM #0.00 103/ulNormal0.00-0.10The [place] HospitalComment on above:Performed By: #### CBCMAN ####[facility] Hpfikqwafk57[address] [place], [place] [address]Dr. Yilan ChangBASOM %0.0 %Critically low0.2-2.0The [place] HospitalComment on above:Performed By: #### CBCMAN ####[facility] Ouyimgwmhs448026 [address] [place], [place] [address]Dr. Yilan ChangBLAST #NormalThe [place] HospitalComment on above:Performed By: #### CBCMAN ####[facility] Gaavtrpkki907526 [address] [place], [place] [address]Dr. Yilan ChangBLAST %NormalThe [place] HospitalComment on above: Performed By: #### CBCMAN ####[facility] Lojhimpcsm[address] [place] [address]Dr. Yilan ChangCORRECTED WBCNormal4.0-11.0The [facility] HospitalComment on above:Performed By: #### CBCBRICE ####[facility] Trvxrbbgdi670926 [address] [place], [place] [address]Dr. Yilan ChangEOS #0.03 103/ulNormal0.00-0.70The [facility] HospitalComment on above:Performed By: #### CBCBRICE ####[facility] Hpovrvmwqi068426 [address] [place], [place] [address]Dr. Yilan ChangEOS%1.0 %Normal0.9-7.0The [facility] HospitalComment on above: Performed By: #### CBCBRICE ####[facility] Dgmkiubynd201526 [address] [place], [place] [address]Dr. Yilan HvcmaNSV06.8 %Monbjt44.0-48.0The [facility] HospitalComment on above:Performed By: #### CBCBRICE ####[facility] Eviidlckvj917726 [address] [place], [place] [address]Dr. Yilan XzpduZQP85.1 g/dl Xzyoni44.0-16.0The [facility] HospitalComment on above:Performed By: #### CBCBRICE ####[facility] Knkgagcuty898326 [address] [place], [place] [address]Dr. Yilan ChangLYMPHM #0.64 103/ulCritically low1.20-3.80The [facility] Comment on above:Performed By: #### CBCBRICE ####[facility] Mudkohpgju941526 [address] [place], [place] [address]Dr. Yilan ChangLYMPHM%23.0 %Jpcazm00.5-60.0 The [facility] HospitalComment on above:Performed By: #### CBCBRICE ####[facility] Knczadoiwz322926 [address] [place], [place] [address]Dr. Yilan ChangMCH 28.0 vqQynkrj76.7-34.0The [facility] HospitalComment on above:Performed By: #### CBCBRICE ####[facility] Klfseptaum167326 [address] [place], [place] [address]Dr. Yilan AxjgwQCAN04.9 g/npUnxnxm82.9-35.2The [facility] HospitalComment on above:Performed By: #### CBCBRICE ####[facility] Wmdnqoomav78[address] [place] [address]Dr. Shahbaz RuizMCV84.9 sJSwipud36.0-99.0The [facility] HospitalComment on above:Performed By: #### CBCMAN ####[facility] Grbgajpqeu34[address] [place] [address]Dr. Yilan ChangMETAMYELOCYTE #NormalThe [place] HospitalComment on above:Performed By: #### CBCBRICE ####[facility] Gizprvselx095326 [address] [place], [place] [address]Dr. Yilan ChangMETAMYELOCYTE %NormalThe [facility] HospitalComment on above:Performed By: #### CBCBRICE ####[facility] Dkxueadpyk701326 [address] [place], [place] [address]Dr. Shahbaz ChangMONOM#0.31 103/ulNormal0.30-0.80The [facility] Comment on above:Performed By: #### CBCBRICE ####[facility] Vnolyqdbhy315926 [address] [place], [place] [address]Dr. Lilalan ChangMONOM%11.0 %Normal1.7-12.0The [facility] HospitalComment on above:Performed By: #### CBCBRICE ####[facility] Htoaciisvi367626 [address] [place], [place] [address]Dr. Lilalan ChangMPV 9.5 fLNormal9.5-13.5The [facility] HospitalComment on above:Performed By: #### CBCMAN ####[facility] Qbculntrol8524[address] [place], [place] [address]Dr. Yilan ChangMYELOCYTE #NormalThe [facility] HospitalComment on above: Performed By: #### CBCMAN ####[facility] Pdqskgtobh694526 [address] [place], [place] [address]Dr. Yilan ChangMYELOCYTE %NormalThe [facility] Comment on above:Performed By: #### CBCMAN ####[facility] Oksywtektg23[address] [place] [address]Dr. Shahbaz RuizNRBCNormalThe [facility] HospitalComment on above:Performed By: #### ARIEL ####[facility] Rqwasrokjh665726 [address] [place], [place] [address]Dr. Shahbaz RuizPLT197 103/ul Otfqbx238-992Zvp [facility] HospitalComment on above:Performed By: #### CBCBRICE ####[facility] Dltmvtdcow571326 [address] [place], [place] [address]Dr. Shahbaz RuizRBC5.04 106/ulNormal4.20-5.40The [facility] HospitalComment on above: Performed By: #### ARIEL ####[facility] Avbhgjhhdr631426 [address] [place], [place] [address]Dr. Shahbaz RuizRDW13.2 %Twoamo58.0-15.0The [facility] HospitalComment on above:Performed By: #### ARIEL ####[facility] Mcmpxnjmhy332626 [address] [place], [place] [address]Dr. Shahbaz RuizSEG #1.82 103/ulNormal1.40-6.50The [facility] HospitalComment on above:Performed By: #### ARIEL ####[facility] Zcpmneklkg790526 [address] [place], [place] [address]Dr. Shabhaz TannerG %65.0 %Ruunei99.0-75.0The [facility] HospitalComment on above:Performed By: #### CBCBRICE ####[facility] Qyqvdbazzy361526 [address] [place], [place] [address]Dr. Shahbaz RuizWBC2.8 103/ulCritically low4.0-11.0The [facility] HospitalComment on above:Performed By: #### CBCBRICE ####[facility] Diomzccknw606326 [address] [place], [place] [address]Dr. Shahbaz Ruiz Covid-19 PCR (CVDTB)on 09-49-2326KWQS-CoV-2 (COVID-19) RNA PAVAN+probe Ql (Unsp spec)Not detectedNormalNOT DETECTEDThe [facility] County HospitalComment on above:Result Comment: When diagnostic testing is negative, the possibility of a false negative should be considered inthe context of a patient's recent exposures and the presence of clinical signs and symptomsconsistent with SARS-CoV-2.This test is not yet approved or cleared by the [place] FDA. When there are no FDA- approved or cleared tests available, and other criteria are met, FDA can make tests available under an emergency access mechanism called an Emergency Use Authorization (EUA). The EUA for this test is supported by the Lead Advisor of Health and Human Service's declaration that circumstances exist to justify the emergency use of in vitro diagnostics for the detection and/or diagnosis of the virus that causes COVID-19. This EUA will remain in effect for the duration of the COVID-19declaration justifying emergency of IVDs, unless it is terminated or revoked by the FDA (after which the test may no longer be used).Performed By: #### CVDTBH ####[facility] Qansdivqpr416726 [address] [place], [place] [address]Dr. Shahbaz RuizD-DIMERon 79-13-1971H-DIMER0.38 mg/L FEUNormal<=0.59The [facility] Hospitalment on above:Performed By: #### DDIM ####[facility] Dsqmaoufxo152326 [address] [place], [place] [address]Dr. Shahbaz ChangD-DIMER COMMENTSSEE BELOWNoMetroHealth Parma Medical CenterComment on above:Result Comment: Increases in D-Dimer concentration observed with thromboembolic events [...] stress, and generalized hospitalization. Performed By: #### DDIM ####[facility] Nprjvwcehj7315[address] [place], [place] [address]Dr. Shahbaz ChangLACTATE/LACTIC ACIDon 60-88-2114Yhjtlgz [Moles/Vol]2.1 mmol/LCritically high0.4-2.0The [facility] Hospitalment on above:Performed By: #### LACT ####[facility] Vopdwevfbj201926 [address] [place], [place] [address]Dr. Yilan ChangPROF CHEM 8 (BAS METB)on 01-02-2023 Anion gap [Moles/Vol]14.3 mmol/LNormalThe [facility] HospitalComment on above: Performed By: #### CMADM, BMP ####[facility] Vpsnnxezyv145526 [address] [place], [place] [address]Dr. Yilan ChangCalcium [Mass/Vol]9.0 mg/dLNormal 8.5-10.1The [facility] HospitalComment on above:Performed By: #### CMADM, BMP ####[facility] Qdawabdbpt104326 [address] [place], [place] [address]Dr. Yilan ChangChloride [Moles/Vol]102 mmol/BXykzgh98-667Bix [facility] Comment on above:Performed By: #### CMADM, BMP ####[facility] Lvacxxmqaz229826 [address] [place], [place] [address]Dr. Yilan ChangCO2 [Moles/Vol]25.5 mmol/CHcqtyg59.0-32.0The [facility] HospitalComment on above: Performed By: #### CMADM, BMP ####[facility] Pvmyyuxirs604526 [address] [place], [place] [address]Dr. Yilan ChangCreatinine [Mass/Vol]1.01 mg/dLNormal 0.55-1.02The [facility] HospitalComment on above:Performed By: #### CMADM, BMP ####[facility] Ifxclthikm384826 [address] [place], [place] [address]Dr. Yilan ChangEGFR-AF IVORIAN>60Normal>=60The [facility] HospitalComment on above: Performed By: #### CMADM, BMP ####[facility] Nlbjuuxllw993926 [address] [place], [place] [address]Dr. Yilan ChangEGFR-NON AF KUEFRKEF82 mL/min/1.73m2 Critically low>=60The [facility] HospitalComment on above:Performed By: #### CMADM, BMP ####[facility] Oltgrlfwlo099926 [address] [place], [place] [address]Dr. Yilan ChangGlucose [Mass/Vol]105 mg/hXOqhalv42-256VmwRegency Hospital Cleveland West Comment on above:Performed By: #### CMADM, BMP ####[facility] Oimlopbpcs57[address] [place] [address]Dr. Yilan ChangPotassium [Moles/Vol]3.8 mmol/LNormal3.5-5.1The [facility] HospitalComment on above: Performed By: #### CMADM, BMP ####[facility] Kpxcjolpqq62[address] [place] [address]Dr. Yilan ChangSodium [Moles/Vol]138 mmol/LNormal 136-145The [facility] HospitalComment on above:Performed By: #### CMADM, BMP ####[facility] Xdvqpvewie555926 [address] [place], [place] [address]Dr. Lilalan ChangUrea nitrogen [Mass/Vol]9.0 mg/dLNormal7.0-18.0The [facility] Comment on above:Performed By: #### CMADM, BMP ####[facility] Jkosjhfnhd799026 [address] [place], [place] [address]Dr. Yilan ChangUrea nitrogen/Creatinine [Mass ratio]8.9 mg/mgNormalThe [facility] HospitalComment on above:Performed By: #### CMADM, BMP ####[facility] Gdfnvnzgao396926 [address] [place], [place] [address]Dr. Lilalan ChangXR CHEST 1 Von 08-48-6745BQ CHEST 1 VNormalThe [facility] HospitalINSULINon 11-28-1827Potqgxr4.0 uIU/mLNormal 2.6-24.9[facility] WestComment on above:Performed By: #### INSULIN ####[facility] Phzbfrexrb704826 [address] [place], [place] [address]Dr. Shahbaz ChangCBC AUTO DIFFon 26-23-7860EWOG #0.0 103/ulNormal0.0-0.1[facility] WestComment on above:Performed By: #### CBC ####[facility] Fgczlfjhor426[address] [place], [place] [address]Dr.Lilalan ChangBasophils/100 WBC (Bld)0.5 %Normal0.2-2.0The [facility] HospitalComment on above:Performed By: #### CBC ####[facility] Iaswuubycv772926 [address] [place], [place] [address]Dr.Yilan ChangEO #0.2 103/ulNormal0.0-0.7The [facility] HospitalComment on above:Performed By: #### CBC ####[facility] Mcaqchkcyt784126 [address] [place], [place] [address]Dr.Yilan ChangEosinophils/100 WBC (Bld)5.2 %Normal 0.9-7.0The [facility] HospitalComment on above:Performed By: #### CBC ####[facility] Xecxcrdchh1269[address] [place], [place] [address]Dr.Shahbaz Ruiz Erythrocyte distribution width (RBC) [Ratio]12.7 %Fmnhur25.0-15.0The [facility] HospitalComment on above:Performed By: #### CBC ####[facility] Faafedoasm2617[address] [place], [place] [address]Dr.Lilajarrod ChangHematocrit (Bld) [Volume fraction]46.4 %Hxelar28.0-48.0The [facility] HospitalComment on above:Performed By: #### CBC ####[facility] Haxvncmmvd045[address] [place], [place] [address]Dr.Shahbaz ChangHemoglobin (Bld) [Mass/Vol]14.9 g/dL Mizeze81.0-16.0The [facility] HospitalComment on above:Performed By: #### CBC ####[facility] Ezrlbagbuf7720[address] [place], [place] [address]Dr. Yilan ChangIG #0.00 10e3/ulNormal0.00-0.03The [facility] County HospitalComment on above: Performed By: #### CBC ####[facility] Jiswmwetwm[address] [place], [place] [address]Dr.Yilan ChangIG %0.0 %Normal0.0-0.5The [facility] HospitalComment on above:Performed By: #### CBC ####[facility] [address]vpkpyw[address] [place], [place] [address]Dr.Shahbaz RuizLYMPH #1.1 103/ulCritically low1.2-3.8The [facility] HospitalComment on above:Performed By: #### CBC ####[facility] [address]ab[address] [place] [address]Dr.Shahbaz RuizLymphocytes/100 WBC (Bld)25.5 %Vapywy05.5-60.0The [facility] HospitalComment on above:Performed By: #### CBC ####[facility] Ynntbrqkxx[address] [place], [place] [address]Dr.Shahbaz RuizMANUAL DIFF REQ NONormalThe [facility] HospitalComment on above:Performed By: #### CBC ####[facility] Svqbpbbcqv[address] [place], [place] [address]Dr. Shahbaz RuizH (RBC) [Entitic mass]27.8 diCxitug31.7-34.0The [facility] Comment on above:Performed By: #### CBC ####[facility] Roppuwxweo9[address] [place], [place] [address]Dr.Shahbaz RuizMCHC (RBC) [Mass/Vol]32.1 g/dL Ehjcgu06.9-35.2The [facility] HospitalComment on above:Performed By: #### CBC ####[facility] Wlshacdcfv10[address] [place], [place] [address]Dr. Shahbaz RuizMCV (RBC) [Entitic vol]86.6 iRAepdsi59.0-99.0[facility] Comment on above:Performed By: #### CBC ####[facility] Pmraykgmfw[address] [place], [place] [address]Dr.Shahbaz RuizMONO #0.2 103/ulCritically low 0.3-0.8The [facility] HospitalComment on above:Performed By: #### CBC ####[facility] Wfjmxyjubb[address] [place], [place] [address]Dr.Shahbaz Ruiz Monocytes/100 WBC (Bld)5.4 %Normal1.7-12.0The [facility] HospitalComment on above: Performed By: #### CBC ####[facility] Jag[address]rqhj[address] [place] [address]Dr.Lilalan Juan FNEUT #2.7 103/ulNormal1.4-6.5The [facility] HospitalComment on above:Performed By: #### CBC ####[facility] Ecbbyiucwo[address] [place], [place] [address]Dr.Lilalan ChangNeutrophils/100 WBC (Bld)63.4 %Xoqrpr38.0-75.0The [facility] HospitalComment on above:Performed By: #### CBC ####[facility] Wvjehhjfws[address] [place], [place] [address]Dr.Shahbaz ChangPlatelet mean volume (Bld) [Entitic vol]9.4 fLCritically low 9.5-13.5The [facility] HospitalComment on above:Performed By: #### CBC ####[facility] Drawjmxdfx9929[address] [place], [place] [address]Dr. Yilan WvpkqVFU620 103/llNulevx509-542Com [facility] HospitalComment on above: Performed By: #### CBC ####[facility] Srwnjevotz276[address] [place], [place] [address]Dr.Yilan ChangRBC5.36 106/ulNormal4.20-5.40The [facility] HospitalComment on above:Performed By: #### CBC ####[facility] Cppmcjrksh8[address] [place], [place] [address]Dr.Shahbaz ChangWBC4.2 103/ul Normal4.0-11.0The [facility] HospitalComment on above:Performed By: #### CBC ####[facility] Umgdjqscup[address] [place], [place] [address]Dr. Lilalan ChangFREE THYROXINE INDEX T7on 62-18-5750CZS4.87Imcwhv2.30-4.50The [facility] HospitalComcorewell health [facility] on above:Performed By: #### CMP, LIPID, T7, TSH ####[facility] Ityenyqhvf[address] [place], [place] [address]Dr. Lilalan OrvknI4H65.0 %Otnhkr31.0-39.0The [facility] HospitalComment on above: Performed By: #### CMP, LIPID, T7, TSH ####[facility] [address]tdv[address] [place] [address]Dr. Shahbaz RuizT4 [Mass/Vol]7.90 ug/dLNormal 4.80-13.90[facility] on above:Performed By: #### CMP, LIPID, T7, TSH ####[facility] Vsjltapeeq[address] [place] [address]Dr. Lilajarrod Juan FGLYCOHEMOGLOBIN A1Con 01-14-2776ASP RECOMMENDATIONSEE BELOW NormalThe [facility] on above:Result Comment: ADA RECOMMENDED LIMIT 4.0 - 6.0 ADA THERAPEUTIC TARGET < 7.0 ACTION SUGGESTED > 7.0Performed By: #### A1C ####[facility] Cnllcglsoa[address] [place], [place] [address]Dr.Shahbaz Juan FGlucose [Mass/Vol]120 mg/dLNoMetroHealth Parma Medical Center Comment on above:Performed By: #### A1C ####[facility] Gbirmiiier48[address] [place], [place] [address]Dr.Lilajarrod HljpmOuY1l (Bld) [Mass fraction]5.8 %Normal4.5-6.2The [facility] HospitalComcorewell health [facility] on above:Performed By: #### A1C ####[facility] Hrlndedwse[address] [place], [place] [address]Dr. Lilajarrod Juan FIRONon 94-03-3096Fajh [Mass/Vol]54.0 ug/iGVhdary48.0-170.0[facility] on above:Performed By: #### IRON ####[facility] Batjmvwiik[address] [place], [place] [address]Dr. Lilajarrod Juan FLIPID PROFILE on 49-41-3290NMKI-HDL RATIO NORMSEE BELOWGalion Community HospitalComcorewell health [facility] on above:Result Comment: 3.3 - 4.4 LOW RISK 4.4 - 7.1 AVERAGE RISK 7.1 - 11.0 MODERATE RISK >11.0 HIGH RISKPerformed By: #### CMP, LIPID, T7, TSH ####[facility] Uzenrhnvbp[address] [place], [place] [address]Dr. Shahbaz Ruiz Cholesterol [Mass/Vol]203 mg/dLCritically high<=200[facility] on above:Performed By: #### CMP, LIPID, T7, TSH ####[facility] W[address]qbxixxu[address] [place] [address]Dr. Shahbaz ChangCholesterol in HDL [Mass/Vol]42 mg/tNOwwzhz58-29Yzo [facility] on above: Performed By: #### CMP, LIPID, T7, TSH ####[facility] G[address]jpufmtah[address] [place] [address]Dr. Shahbaz RuizCholesterol in LDL [Mass/Vol] 121.4 mg/dLAdena Pike Medical Center on above:Performed By: #### CMP, LIPID, T7, TSH ####[facility] Fcjptbsjud[address] [place] [address]Dr. Shahbaz RuizCholesterol.total/Cholesterol in HDL [Mass ratio]4.8 {ratio}NormalThe [facility] on above:Performed By: #### CMP, LIPID, T7, TSH ####[facility] Qxbnigvinf[address] [place] [address]Dr. Yilan ChangHDL NORMAL> or = 60 mg/dl - LOW CARDIOVASCULAR RISK <40 mg/dl - HIGH CARDIOVASCULAR RISKAdena Pike Medical Center on above: Performed By: #### CMP, LIPID, T7, TSH ####[facility] Xocrwrlvve[address] [place] [address]Dr. Yilan ChangLDL CALC NORMALSEE BELOWNoMetroHealth Parma Medical CenterComcorewell health [facility] on above:Result Comment: <100 mg/dl OPTIMAL 100 - 129 mg/dl NEAR OR ABOVE OPTIMAL 130 - 159 mg/dl BORDERLINE HIGH 160 - 189 mg/dl HIGH >190 mg/dl VERY HIGHPerformed By: #### CMP, LIPID, T7, TSH ####[facility] Zltxjraoxg[address] [place] [address]Dr. Shahbaz ChangTriglyceride [Mass/Vol]198 mg/dLCritically high<=150[facility] on above: Performed By: #### CMP, LIPID, T7, TSH ####[facility] Odvmbahlgu[address] [place] [address]Dr. Yilan ChangVLDL CALC39.6 mg/dLNormalThe [facility] HospitalComment on above:Performed By: #### CMP, LIPID, T7, TSH ####[facility] Kifdhinovd[address] [place] [address]Dr. Yilan ChangPROF 14(COMP METB)on 72-33-6385Vpjvalp [Mass/Vol]4.1 g/dLNormal 3.4-5.0The [facility] HospitalComment on above:Performed By: #### CMP, LIPID, T7, TSH ####[facility] Hgobdaoadu[address] [place] [address]Dr. Lilalan ChangAlbumin/Globulin [Mass ratio]1.0 {ratio}NormalRegency Hospital Cleveland West Comment on above:Performed By: #### CMP, LIPID, T7, TSH ####[facility] Dgvrbbfckf[address] [place] [address]Dr. Yilan ChangALP [Catalytic activity/Vol]126 U/LCritically eihc11-938Nsr [facility] HospitalComment on above: Performed By: #### CMP, LIPID, T7, TSH ####[facility] Jdcijhaqjd[address] [place] [address]Dr. Yilan ChangALT [Catalytic activity/Vol]30 U/L Btzhto65-30Mbi [facility] HospitalComment on above:Performed By: #### CMP, LIPID, T7, TSH ####[facility] Cuiyttellb[address] [place] [address]Dr. Yilan ChangAnion gap [Moles/Vol]12.3 mmol/LNormalRegency Hospital Cleveland West Comment on above:Performed By: #### CMP, LIPID, T7, TSH ####[facility] Zrmavxmypm920[address] [place], [place] [address]Dr. Yilan ChangAST [Catalytic activity/Vol]25 U/PCquuqt61-15Cjp [facility] HospitalComment on above:Performed By: #### CMP, LIPID, T7, TSH ####[facility] Iujnbxnzvy415[address] [place], [place] [address]Dr. Yilan ChangBilirubin [Mass/Vol]0.5 mg/dLNormal 0.2-1.0The [facility] HospitalComment on above:Performed By: #### CMP, LIPID, T7, TSH ####[facility] Dhietubgco[address] [place] [address]Dr. Yilan ChangCalcium [Mass/Vol]9.4 mg/dLNormal8.5-10.1The [facility] Comment on above:Performed By: #### CMP, LIPID, T7, TSH ####[facility] Qyhxufrtfo[address] [place], [place] [address]Dr. Yilan ChangChloride [Moles/Vol]104 mmol/PCnithr66-047Azc [facility] Hospitalment on above:Performed By: #### CMP, LIPID, T7, TSH ####[facility] Crargdcfat19[address] [place], [place] [address]Dr. Yilan ChangCO2 [Moles/Vol]29.6 mmol/LNormal 21.0-32.0The [facility] HospitalComment on above:Performed By: #### CMP, LIPID, T7, TSH ####[facility] Gnrapasghn[address] [place], [place] [address]Dr. Yilan ChangCreatinine [Mass/Vol]0.91 mg/dLNormal0.55-1.02The [facility] Hospitalment on above:Performed By: #### CMP, LIPID, T7, TSH ####[facility] O[address]lbmtrb[address] [place] [address]Dr. Yilan ChangEGFR- AF IVORIAN>60Normal>=60The [facility] HospitalComment on above:Performed By: #### CMP, LIPID, T7, TSH ####[facility] Fgtoiywssu8[address] [place], [place] [address]Dr. Yilan ChangEGFR-NON AF IVORIAN>60Normal>=60[facility] on above:Performed By: #### CMP, LIPID, T7, TSH ####[facility] Vlnuksfedl98[address] [place], [place] [address]Dr. Yilan ChangGlobulin (S) [Mass/Vol]4.0 g/dLNormalThe Ej HospitalComcorewell health [facility] st[facility] on above:Performed By: #### CMP, LIPID, T7, TSH ####[facility] Zviheuwwzm24[address] [place] [address]Dr. Yilan ChangGlucose [Mass/Vol]85 mg/tQStyquv17-636Rgn [facility] on above:Performed By: #### CMP, LIPID, T7, TSH ####[facility] Esnkaukqbi[address] [place] [address]Dr. Yilan ChangPotassium [Moles/Vol]3.9 mmol/LNormal 3.5-5.1[facility] on above:Performed By: #### CMP, LIPID, T7, TSH ####[facility] Vbhyxgkmxk[address] [place] [address]Dr. Yilan ChangProtein [Mass/Vol]8.1 g/dLNormal6.4-8.2[facility] on above:Performed By: #### CMP, LIPID, T7, TSH ####[facility] Vncfzlerjx[address] [place], [place] [address]Dr. Yilan ChangSodium [Moles/Vol]142 mmol/YEojnwf902-720Tpv [facility] on above: Performed By: #### CMP, LIPID, T7, TSH ####[facility] Gclcywmalu[address] [place] [address]Dr. Yilan ChangUrea nitrogen [Mass/Vol]9.0 mg/dL Normal7.0-18.0[facility] on above:Performed By: #### CMP, LIPID, T7, TSH ####[facility] Qpeisprlxm[address] [place] [address]Dr. Yilan ChangUrea nitrogen/Creatinine [Mass ratio]9.9 mg/mgNoLakeHealth Beachwood Medical Center on above:Performed By: #### CMP, LIPID, T7, TSH ####[facility] Ftdlxcaszz[address] [place] [address]Dr. Yilan ChangTSHon 35-99-4777JMF3.045 uIU/mLCritically low0.358-3.740The [facility] HospitalComment on above:Performed By: #### CMP, LIPID, T7, TSH ####[facility] [address]aysjxot[address] [place] [address]Dr. Shahbaz RuizXR HUMERUS LT MIN 2Von 29-97-0308XC HUMERUS LT MIN 2VNoMetroHealth Parma Medical CenterXR LSPINE 2_3 VIEWSon 65-93-6783MX LSPINE 2_3 VIEWSGalion Community HospitalXR CHEST 1 Von 31-73-5073EL CHEST 1 VNormalRegency Hospital Cleveland WestACID FAST SMEAR AND CXon 69-90-3348Rbyz Fast CultureNegativeGalion Community HospitalComment on above:Result Comment: No acid fast bacilli isolated after 6 weeks.Performed By: #### AFB ####[facility] [address]rgde[address] [place] [address]Dr.Shahbaz RuizAcid Fast SmearNegativeGalion Community HospitalComment on above:Performed By: #### AFB ####[facility] Vtjuqszido[address] [place] [address]Dr.Shahbaz RuizAFB Specimen ProcessingConcentration NormalRegency Hospital Cleveland WestComment on above:Performed By: #### AFB ####[facility] Glgpxwnvah[address] [place], [place] [address]Dr.Shahbaz Ruiz Bacteria identified Anaer cx Nom (Unsp spec)Ordered By: Rodolfo [place] on 73-13-6250Qnnzxpcrp microbial cultureNo Anaerobes Isolated 3 DaysMemorial Health SystemBasophils Auto (Bld) [#/Vol]Ordered By: Rodolfo [place] on 29-27-9821Igpqrdzdn (Bld) [#/Vol]0.0 10*3/uL0.0-0.2FOhioHealth Van Wert HospitalBasophils/100 WBC Auto (Bld)Ordered By: Rodolfo [place] on 08-12-2022 Basophils/100 WBC (Bld)0.4 %.[facility] Health SystemCreatinine and Glomerular filtration rate.predicted panel (S/P/Bld)Ordered By: Rodolfo [place] on 94-99-8354Jmzcxyicmn [Mass/Vol]0.74 mg/dL0.44-1.03[facility] SystemEosinophils Auto (Bld) [#/Vol]Ordered By: Rodolfo [place] on 08-12-2022 Eosinophils (Bld) [#/Vol]0.0 10*3/uL0.0-0.45[facility] Eosinophils/100 WBC Auto (Bld)Ordered By: Rodolfo [place] on 08-12-2022 Eosinophils/100 WBC (Bld)0.0 %.[facility] Health SystemErythrocyte distribution width Auto (RBC) [Ratio]Ordered By: Rodlofo [place] on 08-12-2022 Erythrocyte distribution width (RBC) [Ratio]14.2 %11.9-15.3FOhioHealth Van Wert HospitalEstimated glomerular filtration rate (GFR) non- Ordered By: Rodolfo [place] on 45-65-2649LWV/1.73 sq M.predicted among non-blacks MDRD (S/P/Bld) [Vol rate/Area]> 60 mL/MinMemorial Health System Hematocrit Auto (Bld) [Volume fraction]Ordered By: Rodolfo [place] on 08-12-2022 Hematocrit (Bld) [Volume fraction]38.0 %34.0-46.4FOhioHealth Van Wert HospitalHemoglobin [Mass/volume] in BloodOrdered By: Rodolfo [place] on 08-12-2022 Hemoglobin (Bld) [Mass/Vol]12.5 g/dL11.8-15.4FOhioHealth Van Wert Hospital Laboratory - Hematology and Cell countsOrdered By: Rodolfo [place] on 08-12-2022 Nucleated RBC/100 WBC (Bld) [Ratio]0.1 %0-0.5FOhioHealth Van Wert Hospital Leukocytes [#/volume] in Blood by Automated countOrdered By: Rodolfo [place] on 94-01-6248VCP (Bld) [#/Vol]5.8 10*3/uL4.5-11.0[facility] Lymphocytes Auto (Bld) [#/Vol]Ordered By: Rodolfo [place] on 08-12-2022 Lymphocytes (Bld) [#/Vol]0.7 10*3/uL1.00-4.8[facility] Lymphocytes/100 WBC Auto (Bld)Ordered By: Rodolfo [place]ley on 08-12-2022 Lymphocytes/100 WBC (Bld)11.4 %.[facility] CenterH Auto (RBC) [Entitic mass]Ordered By: Rodolfo [place] on 31-92-8661UTF (RBC) [Entitic mass] 28.1 pg24.7-34.3FOhioHealth Van Wert HospitalMCHC Auto (RBC) [Mass/Vol] Ordered By: Rodolfo [place] on 16-49-4917MXWF (RBC) [Mass/Vol]32.9 g/dL32.0-35.0 [facility] SystemMCV Auto (RBC) [Entitic vol]Ordered By: Rodolfo [place] on 20-71-2886LWQ (RBC) [Entitic vol]85.4 mN48-877AbpwcammiMemorial Health SystemMonocytes Auto (Bld) [#/Vol]Ordered By: Rodolfo [place] on 47-53-2819Zasqchakc (Bld) [#/Vol]0.3 10*3/uL0.0-0.8[facility] SystemMonocytes/100 WBC Auto (Bld)Ordered By: Rodolfo [place]ley on 08-12-2022 Monocytes/100 WBC (Bld)4.8 %.[facility] Health SystemNeutrophils Auto (Bld) [#/Vol]Ordered By: Rodolfo [place] on 01-54-7423Lhuqgjtbwrt (Bld) [#/Vol] 4.8 10*3/uL1.8-7.7FOhioHealth Van Wert HospitalNeutrophils/100 WBC Auto (Bld)Ordered By: Rodolfo [place] on 36-35-0372Zzgotogszlw/100 WBC (Bld)83.4 %. [facility] SystemNo Panel InformationOrdered By: Rodolfo [place] on 52-57-3759Fefuazcpb GFR ()> 60 mL/MinMemorial Health SystemComment on above:GFR estimated reference range: According to KDOQI guidelines, <60 ml/min/1.73m2 is sufficient todiagnose a patient with chronic kidney disease.Pharmacy Creatinine Clearance (Chem59.45[facility] SystemPlatelet mean volume Auto (Bld) [Entitic vol]Ordered By: Rodolfo [place] on 50-85-1906Cbkmlskb mean volume (Bld) [Entitic vol]7.9 fL6.3-10.7 [facility] SystemPlatelets Auto (Bld) [#/Vol]Ordered By: Rodolfo [place] on 13-51-9183Fqyzsorhy (Bld) [#/Vol]196 10*3/wF615-296LnsaezwjjMemorial Health SystemRBC Auto (Bld) [#/Vol]Ordered By: Rodolfo [place]ley on 69-45-0710ZBW (Bld) [#/Vol]4.45 10*6/uL3.60-5.00Tuscarawas Hospitalerum or plasma anion gap determinationOrdered By: Rodolfo [place]ley on 72-48-9747Saojr gap [Moles/Vol]7.5 mmol/L6.0-15.0Tuscarawas Hospitalerum or plasma calcium measurement (mass/volume)Ordered By: Rodolfo [place] on 94-48-3977Pvqlsca [Mass/Vol]8.7 mg/dL8.2-10.2FCleveland Clinic Mentor Hospitalerum or plasma chloride measurement (moles/volume)Ordered By: Rodolfo [place]ley on 08-12-2022 Chloride [Moles/Vol]108 mmol/F44-781FlnhdgcsqTuscarawas Hospitalerum or plasma glucose measurement (mass/volume)Ordered By: Rodolfo [place] on 08-12-2022 Glucose [Mass/Vol]133 mg/tA99-315XlpnwqoxnMemorial Health SystemComment on above:ADA recommended reference rangeRandom Glucose Reference Range is dependent on time and content of last meal. Glucose of more than 200 mg/dL in a nonstressed, ambulatory subject supports the diagnosisof Diabetes Mellitus.Serum or plasma potassium measurement (moles/volume)Ordered By: Rodolfo [place] on 42-33-4536Vqmjshjib [Moles/Vol]3.7 mmol/L3.5-5.1FCleveland Clinic Mentor Hospitalerum or plasma sodium measurement (moles/volume)Ordered By: Rodolfo [place]ley on 24-83-0658Olkyxa [Moles/Vol]139 mmol/L032-926OmahupdwyTuscarawas Hospitalerum or plasma total carbon dioxide measurement (moles/volume) Ordered By: Rodolfo [place] on 61-68-2221JH9 [Moles/Vol]27.2 mmol/L22.0-30.0 Tuscarawas Hospitalerum or plasma urea nitrogen measurement (mass/volume)Ordered By: Rodolfo [place]ley on 55-29-2628Xmij nitrogen [Mass/Vol]14 mg/dL9-23[facility] SystemABO and Rh group post transfusion reaction Nom (Bld)Ordered By: Rodolfo [place]ley on 47-56-3605Mbnwotkqofu observation Gram stain Nom (Unsp spec)[facility] SystemAFB cultureOrdered By: Rodolfo [place]ley on 76-33-6347Uadzfbjekohyd sp identified Org specific cx Nom (Unsp spec)[facility] SystemAFB smearOrdered By: Rodolfo [place]ley on 15-04-1770Gayyveexxim observation Smear Nom (Unsp spec) [facility] SystemAerobic cultureOrdered By: Rodolfo [place]ley on 49-15-5670Zermjabi identified Aer cx Nom (Unsp spec)No Growth 2 DaysMemorial Health SystemAnaerobic cultureOrdered By: Rodolfo [place]ley on 08-10-2022 Bacteria identified Anaer cx Nom (Unsp spec)No Anaerobes Isolated 3 Days [facility] SystemArterial blood standard base excess determination by calculationOrdered By: Rodolfo Harley on 44-03-4007Xnrq excess standard Calc (BldA) [Moles/Vol]5 mmol/H-1-4AjynhwbbbOhioHealth Van Wert Hospital Blood carbon dioxide, total measurement by calculation (moles/volume)Ordered By: Rodolfo [place]ley on 60-73-8284DZ9 Calc (Bld) [Moles/Vol]30 mmol/W54-55JgngjdmbuMemorial Health SystemCT biopsyOrdered By: Rodolfo Harley on 08-10-2022 Hematocrit (Bld) [Volume fraction]40.0 %38.0-51.0[facility] SystemFungal cultureOrdered By: Rodolfo Harley on 55-22-0427Ywjqot identified Cx Nom (Unsp spec)[facility] SystemGlucose Glucometer (BldC) [Mass/Vol]Ordered By: Rodolfo Harley on 99-90-0410Rjfegki [Mass/Vol]126 mg/dL 70-105[facility] Health SystemGram stain for investigation of transfusion reactionOrdered By: Rodolfo Harley on 36-48-3508Jgkqxzznluq observation Gram stain Nom (Unsp spec)[facility] Hemoglobin Calc (Bld) [Mass/Vol]Ordered By: Rodolfo Harley on 08-10-2022 Hemoglobin (Bld) [Mass/Vol]13.6 g/dL12.0-17.0[facility] Monocyte %Ordered By: Rodolfo Harley on 10-54-7629Sshdftqc %39.9 mm[Hg]35-51 [facility] SystemMonocyte %45 mm[Hg]80-105[facility] SystemNo Panel InformationOrdered By: Rodolfo Harley on 08-10-2022 Chlamydia psittaci Antibodies<1:10Neg:<1:10[facility] Comment on above:This test was developed and its performance characteristicsdetermined by [employer]. It has not been cleared or approvedby the Food and Drug Administration. The FDA hasdetermined that such clearance or a pproval is notnecessary.Performed at: [address] [id number] Director: Shelly Vargas MD, Phone: [phone] Potassium (Bld) [Moles/Vol]Ordered By: Rodolfo Harley on 71-86-3149Qmbgfzwhw [Moles/Vol]3.8 mmol/L3.5-4.9Tuscarawas Hospitalodium (Bld) [Moles/Vol]Ordered By: Rodolfo Harley on 70-86-4060Oeogah [Moles/Vol]141 mmol/L 138-146Mem[facility] Health SystemWhole blood bicarbonate measurement Ordered By: Rodolfo Harley on 61-68-4950MSF9 (Bld) [Moles/Vol]29.1 mmol/L 22.0-28.0[facility] SystemWhole blood ionized calcium measurement (moles/volume)Ordered By: Rodolfo Harley on 08-10-2022 Calcium.ionized (Bld) [Moles/Vol]1280 mmol/L1.12-1.32[facility] SystemWhole blood oxygen saturation measurementOrdered By: Rodolfo Harley on 22-07-3791Elvhbq saturation in Blood84 %95-98[facility] Comment on above:Reference ranges reflect baseline specimens onlyWhole blood pH Ordered By: Rodolfo Harley on 74-46-2938hT (Bld)7.470 Units7.31-7.45[facility] SystemUrine culture routineOrdered By: Rodolfo Harley on 22-67-5628Dfqyvnow identified Cx Nom (U)2 DaysMemorial Health System Activated partial thromboplastin time (aPTT) in platelet poor plasma by coagulation aOrdered By: Rodolfo Harley on 75-88-3339fKER Coag (PPP) [Time]35.9 s25.1-36.5FOhioHealth Van Wert HospitalBasophils Auto (Bld) [#/Vol]Ordered By: Rodolfo Harley on 55-45-2718Vogpuywvq (Bld) [#/Vol]0.0 10*3/uL0.0-0.2 [facility] SystemBasophils/100 WBC Auto (Bld)Ordered By: Rodolfo Harley on 63-16-9901Lhwmozcwj/100 WBC (Bld)0.5 %.[facility] SystemBody fluid albumin measurement (mass/volume)Ordered By: Rodolfo Harley on 52-58-5731Dvdtpxw (Body fld) [Mass/Vol]3.8 g/dL3.2-5.5FOhioHealth Van Wert HospitalCOVID-19 Positive/NegativeOrdered By: Rodolfo Harley on 08-05-2022 SARS-CoV-2 (COVID-19) N gene PAVAN+probe Ql (Resp)NegativeNegativeMemorial Health SystemComment on above:Testing for SARS-CoV-2 by RT-PCRThis test was developed and its performance characteristics determined by [employer] ([employer]) and validated at the [facility]. This test has not been [...] unless the authorization is terminated or revoked sooner.Creatinine and Glomerular filtration rate.predicted panel (S/P/Bld)Ordered By: Rodolfo Harley on 77-96-5887Jytwyrvazx [Mass/Vol]0.97 mg/dL 0.44-1.03[facility] SystemEosinophils Auto (Bld) [#/Vol]Ordered By: Rodolfo Harley on 47-70-0672Fgmisamzdjc (Bld) [#/Vol]0.2 10*3/uL0.0-0.45 [facility] SystemEosinophils/100 WBC Auto (Bld)Ordered By: Rodolfo Harley on 88-67-5605Yxlvhawkjqd/100 WBC (Bld)4.9 %.[facility] SystemErythrocyte distribution width Auto (RBC) [Ratio]Ordered By: Rodolfo Harley on 40-01-3906Gnxtssqrulv distribution width (RBC) [Ratio]14.5 % 11.9-15.3FOhioHealth Van Wert HospitalEstimated glomerular filtration rate (GFR) non- AmericanOrdered By: Rodolfo Harley on 49-45-9635BMI/1.73 sq M.predicted among non-blacks MDRD (S/P/Bld) [Vol rate/Area]59 mL/MinMemorial Health SystemFUNGAL CULTUREon 12-97-3840Aheblz (Mycology) CultureFinal reportAbTwin City HospitalComment on above:Performed By: #### CXFUN ####[facility] Dmoesovdyh[address] [place], [place] [address]DrChen Rowengus StainFinal reportNoMetroHealth Parma Medical CenterComment on above: Performed By: #### CXFUN ####[facility] [address]fgrsoofea[address] [place], [place] [address]DrChen Barber 1CommentAbTwin City HospitalComment on above:Result Comment: MILADYS/Calcofluor preparation: no fungus observed.Performed By: #### CXFUN ####[facility] [address] [place], [place] [address]Qz. Shahbaz Barber Comment: Aspergillus versicolor Result 2Penicillium speciesMercer County Community HospitalComment on above: Performed By: #### CXFUN ####[facility] [address] [place], [place] [address]Ay. Shahbaz RuizGlobulin Calc (S) [Mass/Vol]Ordered By: Rodolfo Harley on 26-23-9004Vibbbtnh (S) [Mass/Vol]2.9 g/dLMemorial Health SystemHematocrit Auto (Bld) [Volume fraction]Ordered By: Rodolfo Harley on 47-14-7296Pjiwvhynge (Bld) [Volume fraction]43.3 %34.0-46.4FOhioHealth Van Wert HospitalHemoglobin [Mass/volume] in BloodOrdered By: Rodolfo Harley on 38-68-3955Ojwgzrzbmh (Bld) [Mass/Vol]14.3 g/dL11.8-15.4FOhioHealth Van Wert HospitalLaboratory - CoagulationOrdered By: Rodolfo Harley on 02-06-1257YK Coag (PPP) [Time]12.4 s9.0-12.9Memorial Health SystemLaboratory - Hematology and Cell countsOrdered By: Rodolfo Harley on 75-61-0997Bcllbxkrx RBC/100 WBC (Bld) [Ratio]0.0 %0-0.5FOhioHealth Van [facility] HospitalLeukocytes [#/volume] in Blood by Automated countOrdered By: Rodolfo Harley on 08-05-2022 WBC (Bld) [#/Vol]3.4 10*3/uL4.5-11.0[facility] SystemLymphocytes Auto (Bld) [#/Vol]Ordered By: Rodolfo Harley on 19-68-9675Tgzjtdisnbq (Bld) [#/Vol]0.9 10*3/uL1.00-4.8[facility] SystemLymphocytes/100 WBC Auto (Bld)Ordered By: Rodolfo Harley on 41-38-4598Ogoxqmqqizu/100 WBC (Bld)27.2 %.[facility] CenterH Auto (RBC) [Entitic mass]Ordered By: Rodolfo Harley on 73-10-0790CZF (RBC) [Entitic mass]28.4 pg24.7-34.3FOhioHealth Van Wert HospitalMCHC Auto (RBC) [Mass/Vol]Ordered By: Rodolfo Harley on 46-86-6072LPKG (RBC) [Mass/Vol]33.1 g/dL32.0-35.0[facility] SystemMCV Auto (RBC) [Entitic vol]Ordered By: Rodolfo Harley on 41-10-3310RTB (RBC) [Entitic vol]85.9 eB50-777MgtysewftMemorial Health SystemMonocytes Auto (Bld) [#/Vol]Ordered By: Rodolfo Harley on 57-02-3036Rpqkoykaz (Bld) [#/Vol]0.3 10*3/uL0.0-0.8[facility] SystemMonocytes/100 WBC Auto (Bld) Ordered By: Rodolfo Harley on 12-61-1579Kamblxisj/100 WBC (Bld)7.5 %.[facility] SystemNeutrophils Auto (Bld) [#/Vol]Ordered By: Rodolfo Harley on 81-10-7000Oaqnokegboz (Bld) [#/Vol]2.0 10*3/uL1.8-7.7FOhioHealth Van Wert HospitalNeutrophils/100 WBC Auto (Bld)Ordered By: Rodolfo Harley on 65-38-6702Wxxbhheedbh/100 WBC (Bld)59.9 %.[facility] SystemNo Panel InformationOrdered By: Rodolfo Harley on 60-75-0221Hggvoiivi GFR ()> 60 mL/MinMemorial Health SystemComment on above:GFR estimated reference range: According to KDOQI guidelines, <60 ml/min/1.73m2 is sufficient todiagnose a patient with chronic kidney disease.Pharmacy Creatinine Clearance (ChemN/[facility] CenterPlatelet mean volume Auto (Bld) [Entitic vol]Ordered By: Rodolfo Harley on 98-75-5527Emckxyzx mean volume (Bld) [Entitic vol]8.1 fL6.3-10.7FOhioHealth Van Wert HospitalPlatelet poor plasma international normalized ratio (INR) by coagulation assay (relatOrdered By: Rodolfo Harley on 38-69-3136BJN Coag (PPP) [Relative time]1.1 {INR}[facility] Health SystemComment on above:INR Therapeutic Range A) Pre- and Peroperative OAT started two weeks before surgery. NOT HIP SURGERY: 1.5 - 2.5 HIP SURGERY: 2 - 3B) Primary and secondary prevention of venous THROMBOSIS: 2 - 3C) Active venous thrombosis, pulmonary embolismand prevention of recurrent venous thrombosis: 2 - 3D) Prevention of arterial thromboembolismincluding patients with mechanical heart valves: 3 - 4.5Platelets Auto (Bld) [#/Vol] Ordered By: Rodolfo Harley on 48-12-3524Tehdredjq (Bld) [#/Vol]243 10*3/uL 150-450[facility] SystemProtein [Mass/volume] in Serum or Plasma Ordered By: Rodolfo Harley on 93-27-8105Tejehfe [Mass/Vol]6.7 g/dL6.1-7.9 [facility] SystemRBC Auto (Bld) [#/Vol]Ordered By: Rodolfo Harley on 48-67-9418OGW (Bld) [#/Vol]5.04 10*6/uL3.60-5.00Tuscarawas Hospitalerum or plasma alanine aminotransferase measurement without P-5'-P (enzymatic activiOrdered By: Rodolfo Harley on 14-71-8490VFP No additional P-5'-P [Catalytic activity/Vol]14 U/V77-52OxzfkncevTuscarawas Hospitalerum or plasma albumin/globulin mass ratioOrdered By: Rodolfo Harley on 11-66-5628Rfrefwd/Globulin [Mass ratio]1.3 {ratio}[facility]carawas Hospitalerum or plasma alkaline phosphatase measurement (enzymatic activity/volume)Ordered By: Rodolfo Harley on 71-72-4352LBZ [Catalytic activity/Vol]91 U/I50-84MwfyysdjsTuscarawas Hospitalerum or plasma anion gap determinationOrdered By: Rodolfo Harley on 09-20-3481Uudfz gap [Moles/Vol] 14.3 mmol/L6.0-15.0Tuscarawas Hospitalerum or plasma aspartate aminotransferase measurement (enzymatic activity/volume)Ordered By: Rodolfo Harley on 86-62-4330SJL [Catalytic activity/Vol]21 U/G40-51SeohjhimkTuscarawas Hospitalerum or plasma calcium measurement (mass/volume)Ordered By: Rodolfo Harley on 59-69-9629Qxzaiaz [Mass/Vol]9.5 mg/dL8.2-10.2FCleveland Clinic Mentor Hospitalerum or plasma chloride measurement (moles/volume) Ordered By: Rodolfo Harley on 01-01-9419Dqxbgzbn [Moles/Vol]102 mmol/L95-114 [facility] Hospitalerum or plasma glucose measurement (mass/volume)Ordered By: Rodolfo Harley on 78-51-1128Occhayk [Mass/Vol]76 mg/dL 70-100[facility] SystemComment on above:ADA recommended reference rangeRandom Glucose Reference Range is dependent on time and content of last meal. Glucose of more than 200 mg/dL in a nonstressed, ambulatory subject supports the diagnosisof Diabetes Mellitus.Serum or plasma potassium measurement (moles/volume)Ordered By: Rodolfo Harley on 83-12-6736Lyoleqoza [Moles/Vol]3.8 mmol/L3.5-5.1FCleveland Clinic Mentor Hospitalerum or plasma sodium measurement (moles/volume)Ordered By: Rodolfo Harley 26-57-1619Laqpye [Moles/Vol]138 mmol/Q938-827CecxpovixTuscarawas Hospitalerum or plasma total bilirubin measurement (mass/volume)Ordered By: Rodolfo Harley 63-88-8910Kkltmzbra [Mass/Vol]0.7 mg/dL0.3-1.2FOhioHealth Van Wert Hospital Serum or plasma total carbon dioxide measurement (moles/volume)Ordered By: Rodolfo Harley on 32-46-5106YJ0 [Moles/Vol]25.5 mmol/L22.0-30.0Tuscarawas Hospitalerum or plasma urea nitrogen measurement (mass/volume) Ordered By: Rodolfo Harley on 16-90-5003Mgaw nitrogen [Mass/Vol]12 mg/dL9 [facility] SystemUrine culture routineOrdered By: Rodolfo Harley on 56-36-0076Tjrkrgmp identified Cx Nom (U)2 DaysMemorial Health SystemXR ANKLE LT MIN 3 Von 88-06-4136EC ANKLE LT MIN 3 VNormalRegency Hospital Cleveland WestBNWestfields Hospital And Clinic 94-56-4450Qyipxtgfdcf peptide B (Bld) [Mass/Vol]843.0 pg/mLNormal <=900.0The [facility] HospitalComment on above:Performed By: #### BNP, CRP, CMP ####[facility] Bxccsjvmbu39[address] [place] [address]Dr. Shahbaz Juan FCBC W MANUAL DIFFon 34-91-0884TGINSHNO LYMPH #NormalThe [facility] HospitalComment on above:Performed By: #### CBCBRICE ####[facility] Jqkmlzozmz514[address] [place], [place] [address]Dr. Yilan ChangATYPICAL LYMPH %NormalThe [facility] HospitalComment on above:Performed By: #### CBCMAN ####[facility] Rqrvpebzim75[address] [place], [place] [address]Dr. Yilan ChangBAND #0.0 103/ulNormal0.0-0.3The [facility] HospitalComment on above: Performed By: #### CBCMAN ####[facility] Zwtwzrgjbv3259[address] [place], [place] [address]Dr. Yilan ChangBAND %0 %Normal0-5The [facility] Comment on above:Performed By: #### CBCMAN ####[facility] Igovjjrunr046[address] [place], [place] [address]Dr. Yilan ChangBASOM #0.00 103/ulNormal 0.00-0.10The [facility] HospitalComment on above:Performed By: #### CBCMAN ####[facility] Lejqhrmylf9616[address] [place], [place] [address]Dr. Yilan ChangBASOM %0.0 %Critically low0.2-2.0The [facility] HospitalComment on above:Performed By: #### CBCMAN ####[facility] Pcktrcaseh[address] [place] [id number]. Yilan ChangBLAST #NormalThe [facility] Comment on above:Performed By: #### CBCMAN ####[facility] Ztlfhmlsgv9422[address] [place], [place] [address]Dr. Yilan ChangBLAST %NormalThe [place]quer[place] HospitalComment on above:Performed By: #### CBCMAN ####[facility] Ztteugrslb728[address] [place], [place] [address]Dr. Yilan ChangCORRECTED WBC Normal4.0-11.0The [facility] HospitalComment on above:Performed By: #### CBCMAN ####[facility] Boihvalmau2449[address] [place], [place] [address]Dr. Yilan ChangEOS #0.00 103/ulNormal0.00-0.70The [facility] HospitalComment on above: Performed By: #### CBCMAN ####[facility] Kjyvtlogff0518[address] [place], [place] [address]Dr. Yilan ChangEOS%0.0 %Critically low0.9-7.0The [place] HospitalComment on above:Performed By: #### CBCMAN ####[facility] Ijjkywmilh0415[address] [place], [place] [address]Dr. Yilan ChangHCT 40.3 %Blixnh47.0-48.0The [facility] HospitalComment on above:Performed By: #### CBCMAN ####[facility] Pvmqvmloyb1598[address] [place], [place] [address]Dr. Yilan PvfxqRYI43.7 g/sxRjqecn77.0-16.0The [facility] HospitalComment on above:Performed By: #### CBCMAN ####[facility] Kjgtphqiiu8874[address] [place], [place] [address]Dr. Yilan ChangLYMPHM #0.41 103/ulCritically low 1.20-3.80The [facility] HospitalComment on above:Performed By: #### CBCMAN ####[facility] Givgikvrlh350[address] [place], [place] [address]Dr. Yilan ChangLYMPHM%7.0 %Critically low20.5-60.0The [facility] HospitalComment on above:Performed By: #### CBCMAN ####[facility] Cvudtlkkgn[address] [place] [address]Dr. Yilan UjidiIKH03.0 njWqkspc33.7-34.0The [facility] HospitalComment on above:Performed By: #### CBCMAN ####[facility] Kdmmmxkvtj030[address] [place] [address]Dr. Yilan OhtqdMSVF07.5 g/dl Iozour88.9-35.2The [facility] HospitalComment on above:Performed By: #### CBCMAN ####[facility] Tlsvsiplgt[address] [place] [address]Dr. Yilan GoqegCZR12.0 bTVholxv68.0-99.0The [facility] HospitalComment on above: Performed By: #### CBCMAN ####[facility] Holpbbdbjy4[address] [place] [address]Dr. Yilan ChangMETAMYELOCYTE #NormalThe [facility] HospitalComcorewell health [facility] on above:Performed By: #### CBCMAN ####[facility] Kygyvzhtaw7[address] [place] [address]Dr. Yilan ChangMETAMYELOCYTE %NormalThe [facility] HospitalComcorewell health [facility] on above:Performed By: #### CBCMAN ####[facility] Inwijuprsp8[address] [place] [address]Dr. Yilan ChangMONOM#0.00 103/ulCritically low0.30-0.80The [facility] HospitalComment on above:Performed By: #### CBCMAN ####[facility] Slxklgxxqk6[address] [place] [address]Dr. Yilan ChangMONOM%0.0 %Critically low1.7-12.0 The [facility] HospitalComment on above:Performed By: #### CBCMAN ####[facility] Tzfpwhbsqt15[address] [place] [address]Dr. Yilan ChangMPV 9.8 fLNormal9.5-13.5The [facility] HospitalComment on above:Performed By: #### CBCMAN ####[facility] Kidwipwrvn[address] [place], [place] [address]Ej. Yilan ChangMYELOCYTE #NormalThe [facility] HospitalComment on above: Performed By: #### CBCMAN ####[facility] Jrfnsdeyeg47[address] [place], [place] [address]Ft. Yilan ChangMYELOCYTE %NormalRegency Hospital Cleveland West Comment on above:Performed By: #### CBCMAN ####[facility] Xattfcsrfp[address] [place] [id number]. Yilan ChangNRBCNormalThe [facility] HospitalComment on above:Performed By: #### CBCMAN ####[facility] Bfvrvzfflh14[address] [place] [address]Dr. Yilan WhblwLUE036 103/ul Ixkmdk612-035Tyw [facility] HospitalComment on above:Performed By: #### CBCMAN ####[facility] Ttcoerjywv[address] [place], [place] [address]Dr. Yilan ChangRBC4.53 106/ulNormal4.20-5.40[facility] Hospital Cleveland WestComment on above: Performed By: #### CBCMAN ####[facility] Gjmhiiycpj2[address] [place], [place] [address]Dr. Yilan TgrizUGB50.3 %Koajxx91.0-15.0The [facility] HospitalComment on above:Performed By: #### CBCMAN ####[facility] Ipnytxriwf45[address] [place], [place] [address]Dr. Yilan ChangSEG #5.49 103/ulNormal1.40-6.50The [facility] HospitalComment on above:Performed By: #### CBCMAN ####[facility] Gbdbrucwzy07[address] [place] [address]Dr. Yilan ChangSEG %93.0 %Critically high43.0-75.0The [facility] Comment on above:Performed By: #### CBCMAN ####[facility] Ptbyyltswq6818[address] [place], [place] [address]Dr. Yilan ChangWBC5.9 103/ulNormal4.0-11.0 The [facility] HospitalComment on above:Performed By: #### CBCMAN ####[facility] Ctmzmywewu23[address] [place] [address]Dr. Shahbaz ChangCRPon 43-07-1018UJK [Mass/Vol]mg/LNormal<=1.0The [facility] HospitalComment on above: Performed By: #### BNP, CRP, CMP ####[facility] Iiwivsjmqf026[address] [place] [address]Dr. Lilalan ChangPROF 14(COMP METB)on 30-94-9268Cmnvzza [Mass/Vol]3.4 g/dLNormal3.4-5.0The [facility] HospitalComment on above:Performed By: #### BNP, CRP, CMP ####[facility] Pyiefcoknx6536[address] [place], [place] [address]Dr. Shahbaz ChangAlbumin/Globulin [Mass ratio]1.0 {ratio}NormalThe [facility] HospitalComment on above:Performed By: #### BNP, CRP, CMP ####[facility] Vmucjfhpph1186[address] [place], [place] [address]Dr. Shahbaz ChangALP [Catalytic activity/Vol]92 U/AWgyeay18-730Mez [facility] Comment on above:Performed By: #### BNP, CRP, CMP ####[facility] Dmgckitwif4269[address] [place], [place] [address]Dr. Shahbaz ChangALT [Catalytic activity/Vol]21 U/PUkrmhf92-35Uoe [facility] HospitalComment on above:Performed By: #### BNP, CRP, CMP ####[facility] Iuwivnjqyj4[address] [place] [address]Dr. Shahbaz ChangAnion gap [Moles/Vol]13.4 mmol/LNormal The [facility] HospitalComment on above:Performed By: #### BNP, CRP, CMP ####[facility] Unhcpqewqf1169[address] [place], [place] [address]Dr. Yilan ChangAST [Catalytic activity/Vol]16 U/YPnfect38-32Lro [facility] Comment on above:Performed By: #### BNP, CRP, CMP ####[facility] Ojwzykntrl5219[address] [place], [place] [address]Dr. Yilan ChangBilirubin [Mass/Vol]0.2 mg/dLNormal0.2-1.0The [facility] HospitalComment on above:Performed By: #### BNP, CRP, CMP ####[facility] Rehsdbcriy65[address] [place] [address]Dr. Yilan ChangCalcium [Mass/Vol]9.3 mg/dLNormal 8.5-10.1The [facility] HospitalComment on above:Performed By: #### BNP, CRP, CMP ####[facility] Edluiipxhp45[address] [place] [address]Dr. Yilan ChangChloride [Moles/Vol]105 mmol/VNxzyhy33-330Rwe [facility] Comment on above:Performed By: #### BNP, CRP, CMP ####[facility] Gipxaomxdr1739[address] [place], [place] [address]Dr. Yilan ChangCO2 [Moles/Vol]23.2 mmol/PPoakhx25.0-32.0The [facility] HospitalComment on above: Performed By: #### BNP, CRP, CMP ####[facility] Ncxjbevlma7[address] [place], [place] [address]Dr. Yilan ChangCreatinine [Mass/Vol]1.23 mg/dL Critically high0.55-1.02The [facility] HospitalComcorewell health [facility] on above:Performed By: #### BNP, CRP, CMP ####[facility] Pzfpqevtzr325[address] [place], [place] [address]Dr. Yilan ChangEGFR-AF EMRJTTGP20 mL/min/1.64q7Davbmfdsaj low>=60The [facility] HospitalComment on above:Performed By: #### BNP, CRP, CMP ####[facility] Hedicvxfde4787[address] [place], [place] [address]Dr. Yilan ChangEGFR- NON AF HOOXQFER92 mL/min/1.66d8Hgmiysrtii low>=60The [facility] HospitalComment on above:Performed By: #### BNP, CRP, CMP ####[facility] Qswpbwkoru2669[address] [place], [place] [address]Dr. Yilan ChangGlobulin (S) [Mass/Vol]3.3 g/dLNormalThe Ej HospitalComment on above:Performed By: #### BNP, CRP, CMP ####[facility] Sxucdzuonc34[address] [place] [address]Dr. Yilan ChangGlucose [Mass/Vol]171 mg/dLCritically fxxh68-220Pjm [facility] Comment on above:Performed By: #### BNP, CRP, CMP ####[facility] Udxtyotria6[address] [place] [address]Dr. Yilan ChangPotassium [Moles/Vol]3.6 mmol/LNormal3.5-5.1The [facility] HospitalComment on above: Performed By: #### BNP, CRP, CMP ####[facility] Uyikpjenng4595[address] [place], [place] [address]Dr. Yilan ChangProtein [Mass/Vol]6.7 g/dLNormal6.4-8.2 The [facility] HospitalComment on above:Performed By: #### BNP, CRP, CMP ####[facility] Hvypkyfgbb387826 [address] [place], [place] [address]Dr. Yilan ChangSodium [Moles/Vol]138 mmol/PRmponh772-017Jav [facility] HospitalComment on above:Performed By: #### BNP, CRP, CMP ####[facility] Obciqjwgje9434[address] [place], [place] [address]Dr. Yilan ChangUrea nitrogen [Mass/Vol]21.0 mg/dLCritically high7.0-18.0The [facility] HospitalComment on above:Performed By: #### BNP, CRP, CMP ####[facility] Dcptsfonqb0436[address] [place], [place] [address]Dr. Yilan ChangUrea nitrogen/Creatinine [Mass ratio] 17.1 mg/mgNoMetroHealth Parma Medical CenterComment on above:Performed By: #### BNP, CRP, CMP ####[facility] Dbxnjlryuu4697[address] [place], [place] [address]Dr. Yilan ChangXR CHEST 2 Von 49-01-6942TU CHEST 2 VNormalRegency Hospital Cleveland WestBNWestfields Hospital And Clinic 02-61-2240Pklyiluklyj peptide B (Bld) [Mass/Vol]83.0 pg/mLNormal <=900.0The [facility] HospitalComment on above:Performed By: #### CRP, CMP, BNP ####[facility] Usexywyngn587[address] [place], [place] [address]Dr. Shahbaz RuizCBC AUTO DIFFon 60-67-0684QKER #0.0 103/ulNormal0.0-0.1The [facility] HospitalComment on above:Performed By: #### CBC ####[facility] Mfbasdiouo2624[address] [place], [place] [address]Dr.Shahbaz ChangBasophils/100 WBC (Bld)0.4 %Normal0.2-2.0The [facility] HospitalComment on above:Performed By: #### CBC ####[facility] Azbpsgpdik733426 [address] [place], [place] [address]Dr.Lilalan ChangEO #0.1 103/ulNormal0.0-0.7The [facility] HospitalComment on above:Performed By: #### CBC ####[facility] Kqtnllczmo3616[address] [place], [place] [address]Dr.Shahbaz ChangEosinophils/100 WBC (Bld)2.9 %Normal 0.9-7.0The [facility] HospitalComment on above:Performed By: #### CBC ####[facility] Kyljmqnbbr3010[address] [place], [place] [address]Dr.Shahbaz Ruiz Erythrocyte distribution width (RBC) [Ratio]13.4 %Fubbbz57.0-15.0The [facility] HospitalComment on above:Performed By: #### CBC ####[facility] Etermobuce3376[address] [place], [place] [address]Dr.Shahbaz RuizHematocrit (Bld) [Volume fraction]41.7 %Uqglvt93.0-48.0The [facility] HospitalComment on above:Performed By: #### CBC ####[facility] Ezmmnczjkt825[address] [place], [place] [address]Dr.Shahbaz RuizHemoglobin (Bld) [Mass/Vol]12.9 g/dL Jolkct21.0-16.0The [facility] HospitalComment on above:Performed By: #### CBC ####[facility] Qgaunzextp6[address] [place] [address]Dr. Shahbaz ChangIG #0.00 10e3/ulNormal0.00-0.03The [facility] HospitalComment on above: Performed By: #### CBC ####[facility] Sohphmffxl80[address] [place] [address]Dr.Shahbaz ChangIG %0.0 %Normal0.0-0.5The [facility] HospitalComment on above:Performed By: #### CBC ####[facility] Fkkxoyaxpf7445[address] [place], [place] [address]Dr.Shahbaz RuizLYMPH #1.5 103/ulNormal1.2-3.8The [facility] HospitalComment on above:Performed By: #### CBC ####[facility] Feenqmtfbe127[address] [place], [place] [address]Dr. Shahbaz RuizLymphocytes/100 WBC (Bld)32.9 %Cpmegv05.5-60.0The [facility] Comment on above:Performed By: #### CBC ####[facility] Rliehjwqxs2116[address] [place], [place] [address]Dr.Shahbaz RuizMANUAL DIFF REQNONormalThe [facility] HospitalComment on above:Performed By: #### CBC ####[facility] Jqrfxgrgyy556[address] [place], [place] [address]Dr.Shahbaz RuizST[facility] (RBC) [Entitic mass]28.0 srBkzqci22.7-34.0The [facility] HospitalComment on above: Performed By: #### CBC ####[facility] Imqtcpvfel2138[address] [place], [place] [address]Dr.Shahbaz Juan FMONTEFIORE [facility] (RBC) [Mass/Vol]30.9 g/dLNormal 29.9-35.2The [facility] HospitalComment on above:Performed By: #### CBC ####[facility] Quhuaicvlt499[address] [place], [place] [address]Dr. Shahbaz Juan FV (RBC) [Entitic vol]90.5 pWPazbcz67.0-99.0The [facility] Comment on above:Performed By: #### CBC ####[facility] Rcrjctvnzs55[address] [place] [address]Dr.Shahbaz RuizMONO #0.4 103/ulNormal0.3-0.8 The [facility] HospitalComment on above:Performed By: #### CBC ####[facility] Abfdaoqfjx8[address] [place] [address]Dr.Shahbaz Ruiz Monocytes/100 WBC (Bld)8.0 %Normal1.7-12.0The [facility] HospitalComment on above: Performed By: #### CBC ####[facility] Dylwgfdlna6104[address] [place], [place] [address]Dr.Shahbaz RuizNEUT #2.5 103/ulNormal1.4-6.5The [facility] HospitalComment on above:Performed By: #### CBC ####[facility] Rdnldwykve760[address] [place], [place] [address]Dr.Shahbaz RuizNeutrophils/100 WBC (Bld)55.8 %Keflhw83.0-75.0The [facility] HospitalComment on above:Performed By: #### CBC ####[facility] Rzizamyxzp5227[address] [place], [place] [address]Dr.Shahbaz RuizPlatelet mean volume (Bld) [Entitic vol]9.7 fLNormal9.5-13.5 The [facility] HospitalComment on above:Performed By: #### CBC ####[facility] Ufgwmzqaur1787[address] [place], [place] [address]Dr.Shahbaz JdsfaONI215 103/rvNpkssq881-750Xpc [facility] HospitalComment on above:Performed By: #### CBC ####[facility] Shmznoxuzs433[address] [place], [place] [address]Dr. Shahbaz ChangRBC4.61 106/ulNormal4.20-5.40The [facility] HospitalComment on above: Performed By: #### CBC ####[facility] Eiqruuzhgf257[address] [place], [place] [address]Dr.Shahbaz ChangWBC4.5 103/ulNormal4.0-11.0The [facility] HospitalComment on above:Performed By: #### CBC ####[facility] Tvnimjiwmb7468[address] [place], [place] [address]Dr.Shahbaz RuizCRPon 75-26-7464UIL [Mass/Vol]mg/LNormal<=1.0The [facility] on above: Performed By: #### CRP, CMP, BNP ####[facility] Cjldaybkou7699[address] [place], [place] [address]Dr. Lilalan ChangECHO LIMITED STUDYon 80-18-4666LHDG Mansfield HospitalPROF 14(COMP METB)on 27-29-9566Gbktiuh [Mass/Vol]3.2 g/dLCritically low3.4-5.0The [facility] on above: Performed By: #### CRP, CMP, BNP ####[facility] Lzojxpzhpa6610[address] [place], [place] [address]Dr. Shahbaz ChangAlbumin/Globulin [Mass ratio]1.0 {ratio}NormalThe [facility] HospitalComment on above:Performed By: #### CRP, CMP, BNP ####[facility] Ojwfbghmxn4267[address] [place], [place] [address]Dr. Shahbaz RuizALP [Catalytic activity/Vol]88 U/CNqvbmt61-345KwtRegency Hospital Cleveland West Comment on above:Performed By: #### CRP, CMP, BNP ####[facility] Pfqbwuudfu5650[address] [place], [place] [address]Dr. Shahbaz RuizALT [Catalytic activity/Vol]17 U/SLinpva49-43Pkw [facility] HospitalComment on above:Performed By: #### CRP, CMP, BNP ####[facility] Vnfaxvegex9309[address] [place], [place] [address]Dr. Shahbaz RuizAnion gap [Moles/Vol]12.5 mmol/LNormal The [facility] HospitalComment on above:Performed By: #### CRP, CMP, BNP ####[facility] Fqbglkxsuy6556[address] [place], [place] [address]Dr. Shahbaz ChangAST [Catalytic activity/Vol]18 U/GKgtxha60-12Ieg [facility] Comment on above:Performed By: #### CRP, CMP, BNP ####[facility] Mgqmmskhms74[address] [place] [address]Dr. Yilan ChangBilirubin [Mass/Vol]0.3 mg/dLNormal0.2-1.0The [facility] HospitalComment on above:Performed By: #### CRP, CMP, BNP ####[facility] Nvfgffezdh[address] [place], [place] [address]Dr. Yilan ChangCalcium [Mass/Vol]8.9 mg/dLNormal 8.5-10.1The [facility] HospitalComment on above:Performed By: #### CRP, CMP, BNP ####[facility] Usemodsxqu4916[address] [place], [place] [address]Dr. Yilan ChangChloride [Moles/Vol]103 mmol/FEeptbu78-304Mou [facility] Comment on above:Performed By: #### CRP, CMP, BNP ####[facility] Gpmlvrtyem3016[address] [place], [place] [address]Dr. Yilan ChangCO2 [Moles/Vol]28.1 mmol/QAfsdkz82.0-32.0The [facility] HospitalComment on above: Performed By: #### CRP, CMP, BNP ####[facility] Oidwtfmqee412[address] [place], [place] [address]Dr. Yilan ChangCreatinine [Mass/Vol]1.24 mg/dL Critically high0.55-1.02The [facility] on above:Performed By: #### CRP, CMP, BNP ####[facility] Vcjzwjmmaj6564[address] [place], [place] [address]Dr. Yilan ChangEGFR-AF BKEULHZE36 mL/min/1.54g0Csfjqvysde low>=60The [facility] HospitalComment on above:Performed By: #### CRP, CMP, BNP ####[facility] Tqvqfhubvn55[address] [place], [place] [address]Dr. Yilan ChangEGFR- NON AF LWURXSWR22 mL/min/1.72q6Myliotpyba low>=60The [facility] HospitalComment on above:Performed By: #### CRP, CMP, BNP ####[facility] Rujcqknukl[address] [place] [address]Dr. Yilan ChangGlobulin (S) [Mass/Vol]3.1 g/dLNormTrinity Health System West CampusComment on above:Performed By: #### CRP, CMP, BNP ####[facility] Rwixuljuln89[address] [place] [address]Dr. Yilan ChangGlucose [Mass/Vol]115 mg/dLCritically ruwf82-857Jwl [facility] Comment on above:Performed By: #### CRP, CMP, BNP ####[facility] Ggajsxnoei33[address] [place] [address]Dr. Yilan ChangPotassium [Moles/Vol]3.6 mmol/LNormal3.5-5.1The [facility] County HospitalComment on above: Performed By: #### CRP, CMP, BNP ####[facility] [address]qmlslm[address] [place] [address]Dr. Yilan ChangProtein [Mass/Vol]6.3 g/dLCritically low6.4-8.2The [facility] HospitalComment on above:Performed By: #### CRP, CMP, BNP ####[facility] Vtzsfsiwfd99[address] [place], [place] [address]Dr. Yilan ChangSodium [Moles/Vol]140 mmol/AExnlfk155-512Ppk [facility] HospitalComment on above:Performed By: #### CRP, CMP, BNP ####[facility] Jxrncptxyk[address] [place] [address]Dr. Yilan ChangUrea nitrogen [Mass/Vol]18.0 mg/dLNormal7.0-18.0The [facility] HospitalComment on above:Performed By: #### CRP, CMP, BNP ####[facility] Rjxxvpvhsc557326 [address] [place], [place] [address]Dr. Yilan ChangUrea nitrogen/Creatinine [Mass ratio]14.5 mg/mgNoMetroHealth Parma Medical CenterComment on above:Performed By: #### CRP, CMP, BNP ####[facility] Lbxseqorko1816[address] [place], [place] [address]Dr. Yilan ChangT3, TOTAL (TRIIODOTHYRONINE)on 92-41-4432Q2, TOTAL95 ng/zBYpiyrr25-392Bor [facility] HospitalComment on above:Performed By: #### D4CIRCF ####[facility] Bgwlqynijv[address] [place] [address]Dr. Shahbaz Roche ROSALINA 3-6on 70-55-9490KU [Catalytic activity/Vol]78 U/DRjjnde45-830Xgy [facility] HospitalComment on above:Performed By: #### CMREP ####[facility] Zmurjypcgp9040[address] [place], [place] [address]Dr. Shahbaz Gela.MB [Mass/Vol]1.44 ng/mLNormal<=3.60The [facility] HospitalComcorewell health [facility] on above:Performed By: #### CMREP ####[facility] Ovdatokket19[address] [place], [place] [address]Dr. Shahbaz Juan FMARCUSTROP9.0 pg/mLNormal4.0-51.3TAdena Pike Medical Center Comment on above:Result Comment: CUT-OFF POINTS HAVE BEEN ESTABLISHED BASED ON THE FOURTH UNIVERSAL DEFINITIONS OF MYOCARDIALINFARCTION. THE UPPER REFERENCE LIMIT (URL) OF TROPONIN, DEFINED THE 99TH PERCENTILE OFcTnI DISTRIBUTION IN A REFERENCE POPULATION, HAS BEEN CONFIRMED THE DECISION THRESHOLDFOR SC DIAGNO SIS.Performed By: #### CMREP ####[facility] Pmjchlkosh2586[address] [place], [place] [address]Dr. Shahbaz Ren [Catalytic activity/Vol]88 U/LNormal 26-192The [facility] HospitalComcorewell health [facility] on above:Performed By: #### CMREP ####[facility] Axusxrbiqr713[address] [place], [place] [address]Dr. Shahbaz Gela.MB [Mass/Vol]1.38 ng/mLNormal<=3.60[facility] on above:Performed By: #### CMREP ####[facility] Huwqfpumsc558[address] [place], [place] [address]Dr. Shahbaz PaulTROP7.0 pg/mLNormal4.0-51.3The [facility] HospitalComment on above:Result Comment: CUT-OFF POINTS HAVE BEEN ESTABLISHED BASED ON THE FOURTH UNIVERSAL DEFINITIONS OF MYOCARDIALINFARCTION. THE UPPER REFERENCE LIMIT (URL) OF TROPONIN, DEFINED THE 99TH PERCENTILE OFcT nI DISTRIBUTION IN A REFERENCE POPULATION, HAS BEEN CONFIRMED THE DECISION THRESHOLDFOR SC DIAGNOSIS.Performed By: #### CMREP ####[facility] Y[address]ums[address]xgpz[address] [place] [address]Dr. Shahbaz SuggsAC ROSALINA ADMITon 75-26-6084SN [Catalytic activity/Vol]87 U/CQgubth74-672[facility] on above:Performed By: #### CMP, CMADM ####[facility] V[address]fwfttmzu[address] [place] [address]Dr. Lilajarrod Juan FCK.MB [Mass/Vol]1.80 ng/mLNormal<=3.60[facility] on above:Performed By: #### CMP, CMADM ####[facility] Lctlqncbtq[address] [place] [address]Dr. Shahbaz Juan FHSTROP7.6 pg/mLNormal4.0-51.3[facility] on above:Result Comment: CUT-OFF POINTS HAVE BEEN ESTABLISHED BASED ON THE FOURTH UNIVERSAL DEFINITIONS OF MYOCARDIALINFARCTION. THE UPPER REFERENCE LIMIT (URL) OF TROPONIN, DEFINED THE 99TH PERCENTILE OFcT nI DISTRIBUTION IN A REFERENCE POPULATION, HAS BEEN CONFIRMED THE DECISION THRESHOLDFOR SC DIAGNOSIS.Performed By: #### CMP, CMADM ####[facility] Ms[address]qgblp[address] [place] [address]Dr. Shahbaz AhujpWLQ42 ng/mL Normal9-82[facility] on above:Performed By: #### CMP, CMADM ####[facility] Lbuefsihbn8497[address] [place], [place] [address]Dr. Lilajarrod Juan FCBC AUTO DIFFon 02-18-4366KOFO #0.0 103/ulNormal0.0-0.1[facility] on above:Performed By: #### CBC ####[facility] [address]icbugrsi[address] [place] [address]Dr.Shahbaz RuizBasophils/100 WBC (Bld)0.7 %Normal0.2-2.0[facility] on above:Performed By: #### CBC ####[facility] Jqntnxhzot[address] [place] [address]Dr.Lilalan ChangEO #0.1 103/ulNormal0.0-0.7The [facility] HospitalComment on above:Performed By: #### CBC ####[facility] Rccgztqkog0210[address] [place], [place] [address]Dr.Lilajarrod ChangEosinophils/100 WBC (Bld)3.4 %Normal 0.9-7.0The [place] HospitalComment on above:Performed By: #### CBC ####[facility] Ycpbzvbkpx408526 [address] [place], [place] [address]Dr.Shahbaz Ruiz Erythrocyte distribution width (RBC) [Ratio]13.3 %Uyakee64.0-15.0The [facility] HospitalComment on above:Performed By: #### CBC ####[facility] Qprcirocib797126 [address] [place], [place] [address]Dr.Shahbaz ChangHematocrit (Bld) [Volume fraction]42.1 %Dlftto22.0-48.0The [facility] HospitalComment on above:Performed By: #### CBC ####[facility] Ydyjhpkhbu076226 [address] [place], [place] [address]Dr.Shahbaz ChangHemoglobin (Bld) [Mass/Vol]13.3 g/dL Hkqjep49.0-16.0The [facility] HospitalComment on above:Performed By: #### CBC ####[facility] Iylzdomaog006626 [address] [place], [place] [address]Dr. Shahbaz ChangIG #0.01 10e3/ulNormal0.00-0.03The [facility] HospitalComment on above: Performed By: #### CBC ####[facility] Cpmwnelbxf281726 [address] [place], [place] [address]Dr.Shahbaz ChangIG %0.3 %Normal0.0-0.5The [facility] HospitalComment on above:Performed By: #### CBC ####[facility] Jjyqeislza8617[address] [place], [place] [address]Dr.Shahbaz ChangLYMPH #1.0 103/ulCritically low1.2-3.8The [facility] HospitalComment on above:Performed By: #### CBC ####[facility] Clejpsztuw543626 [address] [place], [place] [address]Dr.Shahbaz RuizLymphocytes/100 WBC (Bld)35.6 %Hxoyez22.5-60.0The [facility] HospitalComment on above:Performed By: #### CBC ####[facility] Ffscmpntwb028326 [address] [place], [place] [address]Dr.Shahbaz RuizMANUAL DIFF REQ NONormalThe [facility] HospitalComment on above:Performed By: #### CBC ####[facility] Dqievkuxhe494326 [address] [place], [place] [address]Dr. Shahbaz RuizH (RBC) [Entitic mass]27.9 fvPlzmcq82.7-34.0[facility] Comment on above:Performed By: #### CBC ####[facility] Qfejgdsqec779426 [address] [place], [place] [address]Dr.Shahbaz RuizMCHC (RBC) [Mass/Vol]31.6 g/dL Afftxq29.9-35.2The [facility] HospitalComment on above:Performed By: #### CBC ####[facility] Pyvwbkivxd249026 [address] [place], [place] [address]Dr. Lilajarrod RuizV (RBC) [Entitic vol]88.3 qUMialvl41.0-99.0[facility] Comment on above:Performed By: #### CBC ####[facility] Qbywxcdchf775826 [address] [place], [place] [address]Dr.Shahbaz RuizMONO #0.2 103/ulCritically low 0.3-0.8The [facility] HospitalComment on above:Performed By: #### CBC ####[facility] Lkfhaxfoxe855026 [address] [place], [place] [address]Dr.Lilajarrod Ruiz Monocytes/100 WBC (Bld)7.9 %Normal1.7-12.0The [facility] HospitalComment on above: Performed By: #### CBC ####[facility] Xhtrwkxalr271526 [address] [place], [place] [address]Dr.Shahbaz RuizNEUT #1.5 103/ulNormal1.4-6.5The [facility] HospitalComment on above:Performed By: #### CBC ####[facility] Zhrenydatj122126 [address] [place], [place] [address]Dr.Shahbaz ChangNeutrophils/100 WBC (Bld)52.1 %Edxunl39.0-75.0The [facility] HospitalComment on above:Performed By: #### CBC ####[facility] Milffmcbqw188326 [address] [place], [place] [address]Dr.Shahbaz ChangPlatelet mean volume (Bld) [Entitic vol]9.5 fLNormal9.5-13.5 The [facility] HospitalComment on above:Performed By: #### CBC ####[facility] Xublrtsjuy655926 [address] [place], [place] [address]Dr.Shahbaz QkklgXKE161 103/dsPutzwj007-004Vad [facility] HospitalComment on above:Performed By: #### CBC ####[facility] Cpmlekoppf839426 [address] [place], [place] [address]Dr. Shahbaz ChangRBC4.77 106/ulNormal4.20-5.40The [facility] HospitalComment on above: Performed By: #### CBC ####[facility] Sccuzjujyt212726 [address] [place], [place] [address]Dr.Shahbaz ChangWBC2.9 103/ulCritically low4.0-11.0The [facility] HospitalComment on above:Performed By: #### CBC ####[facility] Ouchnbekjx869626 [address] [place], [place] [address]Dr.Shahbaz ChangCELL COUNT BODY FLUIDon 60-33-5991MXPYZVvhkxaPgpMetroHealth Parma Medical CenterComment on above:Performed By: #### BFCC ####[facility] Bwnsffbeyi783526 [address] [place], [place] [address]Dr. Shahbaz ChangEosinophils/100 WBC (Bld)4 %NormalThe [facility] Comment on above:Performed By: #### BFCC ####[facility] Keeyzkwonf335126 [address] [place], [place] [address]Dr. Lilajarrod ChangLymphocytes/100 WBC (Bld)12 % NormalThe [facility] HospitalComment on above:Performed By: #### BFCC ####[facility] Hzuvzkglyk22[address] [place] [address]Dr. Shahbaz Ruiz Monocytes/100 WBC (Bld)4 %NormalRegency Hospital Cleveland WestComment on above:Performed By: #### BFCC ####[facility] Ieekxnzuna843626 [address] [place], [place] [address]Dr. Shahbaz WblymQHF44 cubic mmNormalThProtestant Deaconess HospitalComment on above:Performed By: #### BFCC ####[facility] Rhgfpjtzpi361726 [address] [place], [place] [address]Dr. Shahbaz RuizSEGS80 %NormalRegency Hospital Cleveland West Comment on above:Performed By: #### BFCC ####[facility] Fnduwemxkt608526 [address] [place], [place] [address]Dr. Shahbaz RuizWBC BODY HHYLZ821 cubic mm NormalThe [facility] HospitalComment on above:Performed By: #### BFCC ####[facility] Yfdlcudkbt973126 [address] [place], [place] [address]Dr. Shahbaz Ruiz CULTURE OTHERon 05-54-3528YTLWKNA OTHERCulture Observations: NO GROWTH AT 48 HOURS.NormalRegency Hospital Cleveland WestComment on above:Performed By: #### OTHCX ####[facility] Fqhyzazaia286426 [address] [place], [place] [address]Dr. Shahbaz RuizCYTOLOGYon 46-55-0017MJZF TO REF LAB07/04/22NoMetroHealth Parma Medical CenterComment on above:Performed By: #### CYTO ####[facility] Tzymsfvlot801226 [address] [place], [place] [address]Dr. Shahbaz RuizCovid-19 PCR (CVDTBH)on 58-01-8222PPLU-CoV-2 (COVID-19) RNA PAVAN+probe Ql (Unsp spec)Not detectedNormalNOT DETECTEDThe [facility] HospitalComcorewell health [facility] on above:Result Comment: When diagnostic testing is negative, the [...] for this test is supported by the [place] of Health and Human Service's declaration that circumstances exist to justify the emergency use of in vitro diagnostics for the detection and/or diagnosis of the virus that causes COVID-19. This EUA will remain in effect for the duration of the COVID-19declaration justifying emergency of IVDs, unless it is terminated or revoked by the FDA (after which the test may no longer be used).Performed By: #### CVDTBH ####[facility] Qxhclhusjq550526 [address] [place], [place] [address]Dr. Yilan ChangGRAM STAINon 84-64-6382NZNAXOZNWT ORGANISMS OBSERVEDNormal [facility] WestComment on above:Performed By: #### GSTAIN ####[facility] Ycrlvyenpt729[address] [place], [place] [address]Dr. Yilan Ruiz DIPHTHEROIDSGalion Community HospitalComment on above:Performed By: #### GSTAIN ####[facility] Xghkpcoacl0044[address] [place], [place] [address]Dr. Yilan ChangEPITHELIALSGalion Community HospitalComment on above: Performed By: #### GSTAIN ####[facility] Ujlesoakrb387[address] [place], [place] [address]Dr. Yilan ChangFUNGAL ELEMENTSSuburban Community Hospital & Brentwood Hospital HospitalComment on above:Performed By: #### GSTAIN ####[facility] Hcvsplhkrn390626 [address] [place], [place] [address]Dr. Yilan ChangGRAM NEG BACILLINoSelect Medical Specialty Hospital [facility] Southeast [facility] HospitalComment on above:Performed By: #### GSTAIN ####[facility] Tfetmuzoki703326 [address] [place], [place] [address]Dr. Yilan ChangGRAM NEG DIPPLOCOCCISuburban Community Hospital & Brentwood Hospital HospitalComment on above: Performed By: #### GSTAIN ####[facility] Iozuyabnzc190126 [address] [place], [place] [address]Dr. Yilan ChangGRAM POS BACILLINoMetroHealth Parma Medical CenterComment on above:Performed By: #### GSTAIN ####[facility] Lioyiqpvta[address] [place] [address]Dr. Yilan ChangGRAM POSITIVE COCCINoMetroHealth Parma Medical CenterComment on above:Performed By: #### GSTAIN ####[facility] Nbgpacufjh30[address] [place] [address]Dr. Yilan ChangGRAM STAIN SOURCERt Lower Lobe Bronchial WashingNoMetroHealth Parma Medical CenterComment on above:Performed By: #### GSTAIN ####[facility] Tesmfcazaz89[address] [place] [address]Dr. Yilan ChangGS_DIPTHNormal [facility] WestComment on above:Performed By: #### GSTAIN ####[facility] Zdggulkczq3[address] [place] [address]Dr. Yilan ChangWBC RAREGalion Community HospitalComment on above:Performed By: #### GSTAIN ####[facility] Yodwgiuobl2622[address] [place], [place] [address]Dr. Yilan ChangPROF 14(COMP METB)on 23-28-7461Pxozlae [Mass/Vol]3.6 g/dLNormal 3.4-5.0The [facility] HospitalComment on above:Performed By: #### CMP, CMADM ####[facility] Npmkjegtrk221026 [address] [place], [place] [address]Dr. Lilalan ChangAlbumin/Globulin [Mass ratio]1.1 {ratio}NormalThe [facility] Comment on above:Performed By: #### CMP, CMADM ####[facility] Wgeejwbkfg877826 [address] [place], [place] [address]Dr. Yilan ChangALP [Catalytic activity/Vol]102 U/UIhwsis10-475Qte [facility] Hospitalment on above:Performed By: #### CMP, CMADM ####[facility] Njanefcljv3[address] [place] [address]Dr. Lilalan ChangALT [Catalytic activity/Vol]19 U/L Hfkggv01-47Sdw [facility] HospitalComment on above:Performed By: #### CMP, CMADM ####[facility] Rejrjuphgs[address] [place] [address]Dr. Yilan ChangAnion gap [Moles/Vol]9.5 mmol/LNormalThe [place] HospitalComment on above:Performed By: #### CMP, CMADM ####[facility] Vokfwdluxc52[address] [place] [address]Dr. Yilan ChangAST [Catalytic activity/Vol]19 U/L Iiamub76-19Sev [facility] HospitalComment on above:Performed By: #### CMP, CMADM ####[facility] Bczpxisngh508926 [address] [place], [place] [address]Dr. Yilan ChangBilirubin [Mass/Vol]0.3 mg/dLNormal0.2-1.0[facility] Comment on above:Performed By: #### CMP, CMADM ####[facility] Waqvehsolo687926 [address] [place], [place] [address]Dr. Yilan ChangCalcium [Mass/Vol]8.8 mg/dLNormal8.5-10.1The [facility] HospitalComment on above:Performed By: #### CMP, CMADM ####[facility] Vfqbmvauax590726 [address] [place], [place] [address]Dr. Yilan ChangChloride [Moles/Vol]107 mmol/LNormal 98-107The [facility] HospitalComment on above:Performed By: #### CMP, CMADM ####[facility] Svsnpvuhoe287526 [address] [place], [place] [address]Dr. Yilan ChangCO2 [Moles/Vol]29.5 mmol/GWzaqxh68.0-32.0The [facility] HospitalComment on above:Performed By: #### CMP, CMADM ####[facility] Mlblmuixlq705626 [address] [place], [place] [address]Dr. Yilan ChangCreatinine [Mass/Vol]0.97 mg/dLNormal0.55-1.02The [facility] HospitalComment on above:Performed By: #### CMP, CMADM ####[facility] Cfnpbqvqap387726 [address] [place], [place] [address]Dr. Yilan ChangEGFR-AF IVORIAN>60Normal>=60The [facility] HospitalComment on above:Performed By: #### CMP, CMADM ####[facility] Mkwezxtymq594426 [address] [place], [place] [address]Dr. Yilan ChangEGFR-NON AF CEOXZBRK62 mL/min/1.17s5Wpxmmsxlfi low>=60The [facility] HospitalComment on above:Performed By: #### CMP, CMADM ####[facility] Eupmmatgzm249026 [address] [place], [place] [address]Dr. Shahbaz ChangGlobulin (S) [Mass/Vol]3.2 g/dLNormal The [facility] HospitalComment on above:Performed By: #### CMP, CMADM ####[facility] Uosebwvygl431226 [address] [place], [place] [address]Dr. Shahbaz Ruiz Glucose [Mass/Vol]89 mg/bYKmbavx12-891Olu [facility] HospitalComment on above: Performed By: #### CMP, CMADM ####[facility] Jmoolmnyxw539426 [address] [place], [place] [address]Dr. Shahbaz ChangPotassium [Moles/Vol]4.0 mmol/LNormal 3.5-5.1The [facility] HospitalComment on above:Performed By: #### CMP, CMADM ####[facility] Qegaopqkfh628626 [address] [place], [place] [address]Dr. Shahbaz ChangProtein [Mass/Vol]6.8 g/dLNormal6.4-8.2The [facility] HospitalComment on above:Performed By: #### CMP, CMADM ####[facility] Utvhbkrpph995826 [address] [place], [place] [address]Dr. Lilalan ChangSodium [Moles/Vol]142 mmol/L Naeqjn867-962Med [facility] HospitalComment on above:Performed By: #### CMP, CMADM ####[facility] Ywspmjrnlq1515[address] [place], [place] [address]Dr. Lilalan ChangUrea nitrogen [Mass/Vol]11.0 mg/dLNormal7.0-18.0[facility] Comment on above:Performed By: #### CMP, CMADM ####[facility] Ncyqxmxmik[address] [place] [address]Dr. Lilalan ChangUrea nitrogen/Creatinine [Mass ratio]11.3 mg/mgNormalThe [facility] HospitalComment on above:Performed By: #### CMP, CMADM ####[facility] Dfomssehca[address] [place] [address]Dr. Shahbaz EdpysB2cv 79-12-0161C0 [Mass/Vol]4.70 ug/dLCritically low4.80-13.90The [facility] HospitalComment on above:Performed By: #### TSH, T4 ####[facility] Ulpvrynqjw514526 [address] [place], [place] [address]Dr. Shahbaz RuizTSHon 62-57-7064DKH4.359 uIU/mLNormal0.358-3.740The [facility] HospitalComment on above:Performed By: #### TSH, T4 ####[facility] Emooddyhje436526 [address] [place], [place] [address]Dr. Shahbaz ChangXR CHEST 1 Von 01-32-4299LX CHEST 1 VNormalRegency Hospital Cleveland WestXR CHEST 1 VNormal The [facility] HospitalCHLAMYDIA PNEUMONIAE IgG IgM IgAon 85-50-4926Xuznznlmb pneumoniae IgA<1:16NormalNeg:<1:16The [facility] HospitalComment on above: Performed By: #### CHLMPNE ####[facility] Piqsxxxioj967926 [address] [place], [place] [address]Dr. Lilajarrod ChangChlamydia pneumoniae IgG<1:16Normal Neg:<1:16The [facility] HospitalComment on above:Performed By: #### CHLMPNE ####[facility] Tftmewmjof826126 [address] [place], [place] [address]Dr. Shahbaz ChangChlamydia pneumoniae IgM<1:10NormalNeg:<1:10The [facility] Comment on above:Performed By: #### CHLMPNE ####[facility] Nxnbwpeoty305326 [address] [place], [place] [address]Dr. Shahbaz ChangTest Information:Comment NormalThe [facility] HospitalComment on above:Result Comment: This test was developed and its performance characteristics determinedby [facility]. It has not been cleared or approved by the Food and DrugAdministration. The FDA has determined that such clearance or approvalis not necessary. Results of this test are for investigationalpurposes only. The result should not be used as a diagnosticprocedure without confirmation of the diagnosis by another medicallyestablished diagnostic product or procedure.Performed By: #### CHLMPNE ####[facility] [address]qxfmslb[address] [place] [id number]. Shahbaz RuizCovid-19 PCR ([facility])on 69-62-2969GGWK-CoV-2 (COVID-19) RNA PAVAN+probe Ql (Unsp spec)Not detectedNormalNOT DETECTEDThe [facility] HospitalComment on above:Result Comment: This test is not yet approved or cleared by the [place] FDA. When there are no FDA-approved or cleared tests available, and other criteria are met, FDA can make tests available under an emergency access mechanism called an Emergency Use Authorization (EUA). The EUA for this test is supported by the [place] of Health and Human Service's (HHS's) declaration [...] presence of clinical signs and symptomsconsistent with SARS-CoV-2.Performed By: #### CVDTBH ####[facility] R[address]vwsnywh[address] [place] [id number]. Shahbaz Ruiz CYCLIC CITRULLINATED PEPTIDE AB (CCP)on 87-44-7677DZR Antibodies IgG/IgA13 units Normal0-19[facility] on above:Result Comment: Negative <20 Weak positive 20 - 39 Moderate positive 40 - 59 Strong positive >59Performed By: #### CCPAB ####[facility] Kovyhpxbhl[address] [place], [place] [address]Dr. Yilan ChangANTI NEUTROPHIL CYTOPLASMIC AB (ANCA) PRon 56-19-7358Pocq- MPO Antibodies<0.2Pknshq9.0-0.9[facility] on above:Result Comment: Performed at: BNPerformed By: #### ANCAP ####[facility] Hhohgfhxjj2219[address] [place], [place] [address]Dr. Yijarrod ChangAnti-PR3 Antibodies5.0 unitsCritically high0.0-0.9[facility] on above: Result Comment: Performed at: BNPerformed By: #### ANCAP ####[facility] Wvcwsdkkof3239[address] [place], [place] [address]Dr. Yilan ChangAtypical pANCA <1:20NormalNeg:<1:20The [facility] HospitalComment on above:Result Comment: The atypical pANCA pattern has been observed in a significantpercentage of patients with ulcerative colitis, primary sclerosingcholangitis and autoimmune hepatitis.Performed at: CBPerformed By: #### ANCAP ####[facility] Jllrsheicx5738[address] [place], [place] [address]Dr. Yilan ChangCytoplasmic (C-ANCA)<1:20NormalNeg:<1:20The [facility] HospitalComcorewell health [facility] on above:Result Comment: Performed at: CBPerformed By: #### ANCAP ####[facility] Mptyohuntm099[address] [place], [place] [address]Dr. Yilan ChangPerinuclear (P-ANCA)1:80Critically highNeg:<1:20[facility] on above:Result Comment: The presence of positive fluorescence exhibiting P-ANCA or C- ANCApatterns alone is not specific for the diagnosis of Ada'sGranulomatosis (WG) or microscopic polyangiitis. Decisions abouttreatment should not be based solely on ANCA IFA results. TheInternational ANCA Group Consensus recommends follow up testing ofpositive sera with both AZ-3 and MPO-ANCA enzyme immunoassays. Asmany as 5% serum samples are positive only by EIA.Ref. AM J Clin Pathol 1999;111:507-513.Performed at: CBPerformed By: #### ANCAP ####[facility] Svowrdobkb[address] [place], [place] [address]Dr. Shahbaz Ruiz ANTIGLOMERULAR BASEMENT MEMBRANE ABSon 41-07-7747Pjkf-GBM Antibodies<0.2Normal 0.0-0.9The [facility] HospitalComment on above:Performed By: #### AGBM ####[facility] Sdnozswvae0301[address] [place], [place] [address]Dr. Shahbaz RuizANA EIA W/REFLEX 5 BIOMARKERSon 50-00-1540LAK DirectNegativeNormal NegativeThe [facility] HospitalComment on above:Performed By: #### ANARF ####[facility] Nvigkqzbhj156[address] [place], [place] [address]Dr. Shahbaz RuizANTISCLERODERMA ABon 68-55-1767Tzcjxwvehbcngah-70 Antibodies<0.2 Normal0.0-0.9The [facility] HospitalComment on above:Performed By: #### ANSCLER ####[facility] Jafaltmknm7540[address] [place], [place] [address]Dr. Shahbaz Juan FRHEUMATOID FACTORon 98-70-3826AI Latex Turbid.<10.0Normal<14.0The [facility] HospitalComment on above:Performed By: #### RF ####[facility] Ccbwgtpoef8815[address] [place], [place] [address]Dr. Shahbaz RuizCBC AUTO DIFF on 14-88-0765WYVN #0.0 103/ulNormal0.0-0.1The [facility] HospitalComment on above: Performed By: #### CBC ####[facility] Txtkdpzmva5656[address] [place], [place] [address]Dr.Shahbaz Juan FBasophils/100 WBC (Bld)0.5 %Normal 0.2-2.0The [facility] HospitalComment on above:Performed By: #### CBC ####[facility] Yjbmwsdbyh674[address] [place], [place] [address]Dr.Lilalan ChangEO # 0.1 103/ulNormal0.0-0.7The [facility] HospitalComment on above:Performed By: #### CBC ####[facility] Ykhgaisafg[address] [place] [address]Dr. Yilan ChangEosinophils/100 WBC (Bld)3.4 %Normal0.9-7.0[facility] Comment on above:Performed By: #### CBC ####[facility] Ckhqwecssq9170[address] [place], [place] [address]Dr.Lilalan ChangErythrocyte distribution width (RBC) [Ratio]13.2 %Upsxyg71.0-15.0The [facility] HospitalComment on above: Performed By: #### CBC ####[facility] Mvlcohsivf0328[address] [place], [place] [address]Dr.Yilan ChangHematocrit (Bld) [Volume fraction]45.6 % Fyqzks28.0-48.0The [facility] County HospitalComment on above:Performed By: #### CBC ####[facility] Remcephykp3245[address] [place], [place] [address]Dr. Lilajarrod ChangHemoglobin (Bld) [Mass/Vol]14.7 g/pJCfgavw56.0-16.0The [facility] HospitalComment on above:Performed By: #### CBC ####[facility] Lryqznabhk407226 [address] [place], [place] [address]Dr.Yilan ChangIG #0.01 10e3/ulNormal0.00-0.03The [facility] HospitalComment on above:Performed By: #### CBC ####[facility] Sichnedmli058726 [address] [place], [place] [address]Dr. Yilan ChangIG %0.3 %Normal0.0-0.5The [facility] HospitalComment on above:Performed By: #### CBC ####[facility] Pjvbzwjccu056926 [address] [place], [place] [address]Dr.Yilan ChangLYMPH #1.0 103/ulCritically low1.2-3.8The [facility] HospitalComment on above:Performed By: #### CBC ####[facility] Zvxhmgiaha981826 [address] [place], [place] [address]Dr.Yilan ChangLymphocytes/100 WBC (Bld)25.7 %Ohyvkw56.5-60.0The [facility] HospitalComment on above:Performed By: #### CBC ####[facility] Wuyrycnaeg920126 [address] [place], [place] [address]Dr.Shahbaz RuizMANUAL DIFF REQNONormalThe [facility] HospitalComment on above:Performed By: #### CBC ####[facility] Unsuxocivs066526 [address] [place], [place] [address]Dr.Shahbaz RuizH (RBC) [Entitic mass]28.1 pgNormal 26.7-34.0The [facility] HospitalComment on above:Performed By: #### CBC ####[facility] Uiudiljyaa229326 [address] [place], [place] [address]Dr. Lilajarrod RuizHC (RBC) [Mass/Vol]32.2 g/lXWbqzxx53.9-35.2[facility] Comment on above:Performed By: #### CBC ####[facility] Knrrsbwlrk839326 [address] [place], [place] [address]Dr.Sahhbaz RuizV (RBC) [Entitic vol]87.2 fL Uybthl48.0-99.0The [facility] HospitalComment on above:Performed By: #### CBC ####[facility] Qhebijoyvs101826 [address] [place], [place] [address]Dr. Shahbaz KnoxO #0.2 103/ulCritically low0.3-0.8The [facility] HospitalComment on above:Performed By: #### CBC ####[facility] Yhgzcjcduj411626 [address] [place], [place] [address]Dr.Shahbaz RuizMonocytes/100 WBC (Bld)6.0 %Normal 1.7-12.0The [facility] HospitalComment on above:Performed By: #### CBC ####[facility] Uluvtgbcep678326 [address] [place], [place] [address]Dr. Shahbaz RuizNEUT #2.5 103/ulNormal1.4-6.5The [facility] HospitalComment on above: Performed By: #### CBC ####[facility] Nvyosmkjvu361026 [address] [place], [place] [address]Dr.Shahbaz RuizNeutrophils/100 WBC (Bld)64.1 %Normal 43.0-75.0The [facility] HospitalComment on above:Performed By: #### CBC ####[facility] Typioaapzj[address] [place] [address]Dr. Shahbaz RuizPlatelet mean volume (Bld) [Entitic vol]9.4 fLCritically low9.5-13.5 The [facility] HospitalComment on above:Performed By: #### CBC ####[facility] Jybmervmxr079926 [address] [place], [place] [address]Dr.Shahbaz IbawfYML450 103/vgKyybyb568-034Sav [facility] HospitalComment on above:Performed By: #### CBC ####[facility] Dqwtlidxpr055726 [address] [place], [place] [address]Dr. Shahbaz ChangRBC5.23 106/ulNormal4.20-5.40The [facility] HospitalComment on above: Performed By: #### CBC ####[facility] Njtiuaewly707826 [address] [place], [place] [address]Dr.Shahbaz ChangWBC3.9 103/ulCritically low4.0-11.0The [facility] HospitalComment on above:Performed By: #### CBC ####[facility] Kgdrdocnkp801326 [address] [place], [place] [address]Dr.Shahbaz ChangPROF 14(COMP METB)on 84-74-9563Qiqhhla [Mass/Vol]4.1 g/dLNormal3.4-5.0[facility] Comment on above:Performed By: #### CMP ####[facility] Pygcrarvyo318626 [address] [place], [place] [address]Dr.Shahbaz RuizAlbumin/Globulin [Mass ratio] 1.1 {ratio}NormalThe [facility] HospitalComment on above:Performed By: #### CMP ####[facility] Nwulncbapx483526 [address] [place], [place] [address]Dr. Shahbaz RuizALP [Catalytic activity/Vol]133 U/LCritically bcuz95-631Boi [facility] HospitalComment on above:Performed By: #### CMP ####[facility] Hgcakoxkas385726 [address] [place], [place] [address]Dr.Yijarrod ChangALT [Catalytic activity/Vol]29 U/MTjbcuv26-42Uks [facility] HospitalComment on above:Performed By: #### CMP ####[facility] Tjhwzpjaeq[address] [place] [address]Dr.Yijarrod ChangAnion gap [Moles/Vol]10.9 mmol/LNormalRegency Hospital [facility] Comment on above:Performed By: #### CMP ####[facility] Hvhlgwnzuh240026 [address] [place], [place] [address]Dr.Yijarrod ChangAST [Catalytic activity/Vol]23 U/OEijloc29-84Owv [facility] HospitalComment on above:Performed By: #### CMP ####[facility] Eywmvlfxhy277426 [address] [place], [place] [address]Dr. Yijarrod ChangBilirubin [Mass/Vol]0.3 mg/dLNormal0.2-1.0[facility] Comment on above:Performed By: #### CMP ####[facility] Yieoaszxuz324026 [address] [place], [place] [address]Dr.Yijarrod ChangCalcium [Mass/Vol]9.1 mg/dL Normal8.5-10.1[facility] WestComment on above:Performed By: #### CMP ####[facility] Nwcfonayzk361326 [address] [place], [place] [address]Dr. Yijarrod ChangChloride [Moles/Vol]103 mmol/DNmlnjv73-916Clt [facility] Comment on above:Performed By: #### CMP ####[facility] Govshthauw383226 [address] [place], [place] [address]Dr.Yilan ChangCO2 [Moles/Vol]30.8 mmol/L Wbkfor24.0-32.0The [facility] HospitalComment on above:Performed By: #### CMP ####[facility] Pkotaavyxi566126 [address] [place], [place] [address]Dr. Yilan ChangCreatinine [Mass/Vol]1.02 mg/dLNormal0.55-1.02The [facility] Comment on above:Performed By: #### CMP ####[facility] Fxhpjsfgjw043726 [address] [place], [place] [address]Dr.Yilan ChangEGFR-AF IVORIAN>60Normal>=60 The [facility] HospitalComment on above:Performed By: #### CMP ####[facility] Sgdtzenuky528826 [address] [place], [place] [address]Dr.Yilan ChangEGFR- NON AF LKBREQKK32 mL/min/1.36d1Ewqteypjga low>=60The [facility] HospitalComment on above:Performed By: #### CMP ####[facility] Wsrhvdagkd434326 [address] [place], [place] [address]Dr.Yilan ChangGlobulin (S) [Mass/Vol]3.7 g/dLNormalThe [facility] HospitalComment on above:Performed By: #### CMP ####[facility] Dppvaskbjc018626 [address] [place], [place] [address]Dr.Yilan ChangGlucose [Mass/Vol]80 mg/jDScaqhi31-244Nhl [facility] HospitalComment on above:Performed By: #### CMP ####[facility] Hynxaeafqu134726 [address] [place], [place] [address]Dr.Yilan ChangPotassium [Moles/Vol]3.7 mmol/LNormal3.5-5.1The [facility] HospitalComment on above:Performed By: #### CMP ####[facility] Mqzvlnskjf678126 [address] [place], [place] [address]Dr.Yilan ChangProtein [Mass/Vol]7.8 g/dLNormal6.4-8.2The [facility] HospitalComment on above:Performed By: #### CMP ####[facility] Ywjjahmgpp744226 [address] [place], [place] [address]Dr.Yilan ChangSodium [Moles/Vol]141 mmol/CSpzzre534-408Amk [facility] HospitalComment on above:Performed By: #### CMP ####[facility] Kfapatnhvb055726 [address] [place], [place] [address]Dr.Yilan ChangUrea nitrogen [Mass/Vol]10.0 mg/dLNormal7.0-18.0The [facility] HospitalComment on above: Performed By: #### CMP ####[facility] Kyiiownhio217926 [address] [place], [place] [address]Dr.Yilan ChangUrea nitrogen/Creatinine [Mass ratio]9.8 mg/mgNormTrinity Health System West CampusComment on above:Performed By: #### CMP ####[facility] Ycysqvrwlw98[address] [place] [address]Dr. Yilan ChangSED RATE WESTERGRENon [id number] RATE17 mm/hrNormal<=30The [facility] HospitalComment on above:Performed By: #### SEDR ####[facility] Svuhcqclia[address] [place] [address]Dr. Yilan ChangCT CHEST HI RESOLUTIONon 52-77-9064AJ CHEST HI RESOLUTIONGalion Community HospitalXR ANKLE RT MIN 3 VIEWSon 20-92-9418QB ANKLE RT MIN 3 VIEWSGalion Community HospitalCT CHEST WO CONon [id number] CHEST WO CONNBlanchard Valley Health System Bluffton HospitalCT CSPINE WO CONon [id number] CSPINE WO [facility]XR CHEST 2 Von 21-85-1553QA CHEST 2 [facility]XR STERNUM MIN 2 VIEWSon 98-57-4206IF STERNUM MIN 2 VIEWSGalion Community HospitalCT HEAD WO CONon [id number] HEAD WO [facility]HealthCBC AUTO DIFFon 01-21-2022 BASO #0.0 103/ulNormal0.0-0.1[facility] WestComment on above:Performed By: #### CBC ####[facility] Vuweyyanba6250 [place] [address]Dr.Yilan ChangBasophils/100 WBC (Bld)0.0 %Critically low0.2-2.0The [facility] HospitalComment on above:Performed By: #### CBC ####[facility] Exolgztnas040[address] [place] [address]Dr.Yilan ChangEO #0.0 103/ul Normal0.0-0.7The [facility] HospitalComment on above:Performed By: #### CBC ####[facility] Rodapkliqh[address] [place], [place] [address]Dr. Yilan ChangEosinophils/100 WBC (Bld)0.0 %Critically low0.9-7.0The [facility] HospitalComment on above:Performed By: #### CBC ####[facility] Ryqkgevmgs111226 [address] [place], [place] [address]Dr.Shahbaz ChangErythrocyte distribution width (RBC) [Ratio]14.2 %Tqvhqw49.0-15.0The [facility] Comment on above:Performed By: #### CBC ####[facility] Cxesmnoghl443526 [address] [place], [place] [address]Dr.Lilajarrod ChangHematocrit (Bld) [Volume fraction]38.9 %Fbmuse22.0-48.0The [facility] HospitalComment on above:Performed By: #### CBC ####[facility] Ivfbvbtczf105626 [address] [place], [place] [address]Dr.Lilajarrod ChangHemoglobin (Bld) [Mass/Vol]11.8 g/dLCritically low12.0-16.0 The [facility] HospitalComment on above:Performed By: #### CBC ####[facility] Gsjxxyqswv170526 [address] [place], [place] [address]Dr.Lilajarrod ChangIG # 0.03 10e3/ulNormal0.00-0.03The [facility] HospitalComment on above:Performed By: #### CBC ####[facility] Umcnljldom665826 [address] [place], [place] [address]Dr.Shahbaz ChangIG %0.4 %Normal0.0-0.5The [facility] HospitalComment on above: Performed By: #### CBC ####[facility] Pyckgzdito096426 [address] [place], [place] [address]Dr.Lilajarrod ChangLYMPH #0.8 103/ulCritically low1.2-3.8 The [facility] HospitalComment on above:Performed By: #### CBC ####[facility] Whkogqsuuu817826 [address] [place], [place] [address]Dr.Shahbaz Ruiz Lymphocytes/100 WBC (Bld)10.3 %Critically low20.5-60.0[facility] Comment on above:Performed By: #### CBC ####[facility] Bsfqgimttx15[address] [place] [address]Dr.Shahbaz RuizMANUAL DIFF REQNONormalThe [facility] HospitalComment on above:Performed By: #### CBC ####[facility] Ravrboooxy866926 [address] [place], [place] [address]Dr.Shahbaz RuizH (RBC) [Entitic mass]27.1 khPgcvbk35.7-34.0The [facility] HospitalComment on above: Performed By: #### CBC ####[facility] Lvwozrvurv048826 [address] [place], [place] [address]Dr.Shahbaz RuizHC (RBC) [Mass/Vol]30.3 g/dLNormal 29.9-35.2The [facility] HospitalComment on above:Performed By: #### CBC ####[facility] Bizwmlfvvp042226 [address] [place], [place] [address]Dr. Lilajarrod RuizV (RBC) [Entitic vol]89.2 lUIxlcvz30.0-99.0[facility] Comment on above:Performed By: #### CBC ####[facility] Iylzvcuwpq432426 [address] [place], [place] [address]Dr.Shahbaz RuizMONO #0.4 103/ulNormal0.3-0.8 [facility] WestComment on above:Performed By: #### CBC ####[facility] Cbeqyrrjkf168626 [address] [place], [place] [address]Dr.Lilajarrod Ruiz Monocytes/100 WBC (Bld)4.7 %Normal1.7-12.0The [facility] HospitalComment on above: Performed By: #### CBC ####[facility] Elmeomxgyh516526 [address] [place], [place] [address]Dr.Lilajarrod Juan FNEUT #6.6 103/ulCritically high1.4-6.5 The [facility] HospitalComment on above:Performed By: #### CBC ####[facility] Hnyhntnjbm633726 [address] [place], [place] [address]Dr.Shahbaz Ruiz Neutrophils/100 WBC (Bld)84.6 %Critically high43.0-75.0[facility] Comment on above:Performed By: #### CBC ####[facility] Kobkvscloe12[address] [place] [address]Dr.Lilalan ChangPlatelet mean volume (Bld) [Entitic vol]10.0 fLNormal9.5-13.5The [facility] HospitalComment on above: Performed By: #### CBC ####[facility] Wntbieqsag2301 [place] [address]Dr.Yilan OpramTOK882 103/twHtbeoo150-770Ewt [facility] HospitalComment on above:Performed By: #### CBC ####[facility] Argvxsuumb826126 [address] [place], [place] [address]Dr.Yilan ChangRBC4.36 106/ul Normal4.20-5.40The [facility] HospitalComment on above:Performed By: #### CBC ####[facility] Nuguqsuzhp692426 [address] [place], [place] [address]Dr. Yilan ChangWBC7.8 103/ulNormal4.0-11.0The [facility] HospitalComment on above: Performed By: #### CBC ####[facility] Cdmhekgbwv157626 [address] [place], [place] [address]Dr.Yilan ChangER URINE PROFILEon 39-57-8094Ecmmweyfc Ql (U)NegativeNormalNEGATIVEThe [facility] HospitalComcorewell health [facility] on above:Performed By: #### ERUR ####[facility] Uievfzmzev890926 [address] [place], [place] [address]Dr. Yilan ChangClarity (U)CLEARNormalCLEARThe [facility] HospitalComment on above:Performed By: #### ERUR ####[facility] Lemhjiyltb518326 [address] [place], [place] [address]Dr. Yilan ChangColor (U)LT. YELLOWNormalYELLOWRegency Hospital Cleveland WestComment on above:Performed By: #### ERUR ####[facility] Muiixchuxc437026 [address] [place], [place] [address]Dr. Yilan ChangERUAHDA micrscopic examination will be performed if indicated.NormalThe [facility] HospitalComment on above:Performed By: #### ERUR ####[facility] Rneisdjwbq3[address] [place] [address]Dr. Yilan ChangGlucose Ql (U) NegativeNormalNEGATIVEMercy Health HospitalComment on above:Performed By: #### ERUR ####[facility] Xhptxoflzw265826 [address] [place], [place] [address]Dr. Yilan ChangHemoglobin Ql (U)NegativeNormalNEGATIVEThe [facility] Comment on above:Performed By: #### ERUR ####[facility] Xdbrxnuhoc168126 [address] [place], [place] [address]Dr. Yilan ChangKetones Ql (U)NegativeNormal NEGATIVEMercy Health HospitalComment on above:Performed By: #### ERUR ####[facility] Utmpmvxncf931926 [address] [place], [place] [address]Dr. Yilan ChangLEUKOCYTESNegativeNormalNEGATIVEMercy Health HospitalComment on above:Performed By: #### ERUR ####[facility] Rpvebhjtty486126 [address] [place], [place] [address]Dr. Yilan ChangNitrite Ql (U)NegativeNormalNEGATIVEMercy Health HospitalComment on above:Performed By: #### ERUR ####[facility] Abbxgaopac944926 [address] [place], [place] [address]Dr. Yilan ChangpH (U)6.0 [pH] Normal5-9The [facility] HospitalComment on above:Performed By: #### ERUR ####[facility] Fpdyejvmat164326 [address] [place], [place] [address]Dr. Yilan ChangSPEC GRAVITY1.665Hdkpzk1.005-<=1.025The [place] HospitalComment on above:Performed By: #### ERUR ####[facility] Fowqtxvwyh215826 [address] [place], [place] [address]Dr. Yilan ChangUA PROTEINNegativeNormalNEGATIVE/ TRACE The [facility] HospitalComment on above:Performed By: #### ERUR ####[facility] Emvyogpemo156726 [address] [place], [place] [address]Dr. Yilan ChangUR MICRO INDNOT INDICATEDNormalThe [facility] HospitalComment on above:Performed By: #### ERUR ####[facility] Zhyehtkqzq60[address] [place] [address]Dr. Shahbaz ChangUrobilinogen Qn (U)0.2 {Melida'U}/dLNormal0.2 - 1.0The [facility] HospitalComment on above:Performed By: #### ERUR ####[facility] Jooabohxrh073226 [address] [place], [place] [address]Dr. Shahbaz ChangPOINT OF CARE GLUCOSEon 29-06-4526Hsqujmf [Mass/Vol]151 mg/dLCritically jwtm04-704Yqn [facility] HospitalComment on above:Performed By: #### POCGLUC ####[facility] Fnfgyhhatn196926 [address] [place], [place] [address]Dr. Shahbaz ChangGlucose [Mass/Vol]248 mg/dLCritically qzqs76-085Dbq [facility] HospitalComment on above: Performed By: #### POCGLUC ####[facility] Zsstdgsrvs634526 [address] [place], [place] [address]Dr. Lilalan ChangPROF 14(COMP METB)on 80-11-3892Islmtmx [Mass/Vol]2.8 g/dLCritically low3.4-5.0The [facility] HospitalComment on above: Performed By: #### CMP ####[facility] Mqyzywgfzg936926 [address] [place], [place] [address]Dr.Shahbaz ChangAlbumin/Globulin [Mass ratio]0.9 {ratio} NormalThe [facility] HospitalComment on above:Performed By: #### CMP ####[facility] Oplhldtptt886826 [address] [place], [place] [address]Dr.Lilalan ChangALP [Catalytic activity/Vol]90 U/WUqxuzl51-085Vis [facility] HospitalComment on above: Performed By: #### CMP ####[facility] Boiabllsmd689226 [address] [place], [place] [address]Dr.Lilalan ChangALT [Catalytic activity/Vol]20 U/LNormal 14-59The [facility] HospitalComment on above:Performed By: #### CMP ####[facility] Iechhwioyq640926 [address] [place], [place] [address]Dr.Yilan ChangAnion gap [Moles/Vol]8.9 mmol/LNormalThe [facility] HospitalComment on above:Performed By: #### CMP ####[facility] Mxejaxmtbr242026 [address] [place], [place] [address]Dr.Yilan ChangAST [Catalytic activity/Vol]14 U/LCritically aoy30-96Rnt [facility] HospitalComment on above:Performed By: #### CMP ####[facility] Uxlowlbmtr849626 [address] [place], [place] [address]Dr.Yilan ChangBilirubin [Mass/Vol]0.1 mg/dLCritically low0.2-1.3The [facility] HospitalComment on above: Performed By: #### CMP ####[facility] Exdatzieyw959226 [address] [place], [place] [address]Dr.Yilan ChangCalcium [Mass/Vol]8.2 mg/dLCritically low8.5-10.1The [facility] HospitalComment on above:Performed By: #### CMP ####[facility] Fkvhokbaks020726 [address] [place], [place] [address]Dr. Yilan ChangChloride [Moles/Vol]110 mmol/LCritically kyif22-795Myj [facility] HospitalComment on above:Performed By: #### CMP ####[facility] Sxfsgazfdx204826 [address] [place], [place] [address]Dr.Yilan ChangCO2 [Moles/Vol] 28.0 mmol/FBeguwa73.0-30.0The [facility] HospitalComment on above:Performed By: #### CMP ####[facility] Tbjrmlzhmc780426 [address] [place], [place] [address]Dr.Yilan ChangCreatinine [Mass/Vol]0.78 mg/dLNormal0.52-1.04The [facility] HospitalComment on above:Performed By: #### CMP ####[facility] Nbjbugnoxo184626 [address] [place], [place] [address]Dr.Yilan ChangEGFR-AF IVORIAN>60Normal>=60The [facility] HospitalComment on above:Performed By: #### CMP ####[facility] Hjzikavpwm691726 [address] [place], [place] [address]Dr. Shahbaz ChangEGFR-NON AF IVORIAN>60Normal>=60The [facility] HospitalComment on above:Performed By: #### CMP ####[facility] Gfabwiydha640726 [address] [place], [place] [address]Dr.Shahbaz RuizGlobulin (S) [Mass/Vol]3.1 g/dLNoMetroHealth Parma Medical CenterComment on above:Performed By: #### CMP ####[facility] Xxecxljljp286326 [address] [place], [place] [address]Dr.Shahbaz ChangGlucose [Mass/Vol]121 mg/dLCritically icaw96-401Bqw [facility] HospitalComment on above: Performed By: #### CMP ####[facility] Tfqktkdzuw503426 [address] [place], [place] [address]Dr.Shahbaz ChangPotassium [Moles/Vol]3.9 mmol/LNormal 3.4-5.0The [facility] HospitalComment on above:Performed By: #### CMP ####[facility] Avpyiwernh157226 [address] [place], [place] [address]Dr.Shahbaz Ruiz Protein [Mass/Vol]5.9 g/dLCritically low6.1-8.2The [facility] HospitalComment on above:Performed By: #### CMP ####[facility] Utluiuoofw231326 [address] [place], [place] [address]Dr.Shahbaz ChangSodium [Moles/Vol]143 mmol/LNormal 137-145The [facility] HospitalComment on above:Performed By: #### CMP ####[facility] Levffdbhwu822226 [address] [place], [place] [address]Dr.Yilan ChangUrea nitrogen [Mass/Vol]26.0 mg/dLCritically high7.0-18.0The [facility] HospitalComment on above:Performed By: #### CMP ####[facility] Fgervyvggx660226 [address] [place], [place] [address]Dr.Lilalan ChangUrea nitrogen/Creatinine [Mass ratio] 33.3 mg/mgNoMetroHealth Parma Medical CenterComment on above:Performed By: #### CMP ####[facility] Iwlazxlvqk255326 [address] [place], [place] [address]Dr. Shahbaz IcxheUPOCX-5-JMUWIWOOXYLqp 78-80-7000Vpsxr-1-Antitrypsin, Mufnp630 mg/dL Qnutsm773-741Hxh [facility] HospitalComment on above:Performed By: #### ALPHA-1 ####[facility] Amxzuujjez5[address] [place] [address]Dr. Shahbaz ChangCBC AUTO DIFFon 40-75-1941MZWK #0.0 103/ulNormal0.0-0.1The [facility] HospitalComment on above:Performed By: #### CBC ####[facility] Cogrcbmfzy276126 [address] [place], [place] [address]Dr.Lilalan ChangBasophils/100 WBC (Bld)0.0 %Critically low0.2-2.0The [facility] HospitalComment on above: Performed By: #### CBC ####[facility] Mlpwjcylrb826026 [address] [place], [place] [address]Dr.Yilan ChangEO #0.0 103/ulNormal0.0-0.7The [facility] HospitalComment on above:Performed By: #### CBC ####[facility] Ebdkojrcbb821926 [address] [place], [place] [address]Dr.Shahbaz ChangEosinophils/100 WBC (Bld)0.0 %Critically low0.9-7.0The [facility] HospitalComcorewell health [facility] on above: Performed By: #### CBC ####[facility] Eibybdyvkm722026 [address] [place], [place] [address]Dr.Shahbaz ChangErythrocyte distribution width (RBC) [Ratio]13.7 %Pjbfar98.0-15.0The [facility] HospitalComment on above:Performed By: #### CBC ####[facility] Zgcxtyraok655026 [address] [place], [place] [address]Dr.Shahbaz ChangHematocrit (Bld) [Volume fraction]41.2 %Pjgbjf00.0-48.0The [facility] HospitalComment on above:Performed By: #### CBC ####[facility] Qumyqnwfre170326 [address] [place], [place] [address]Dr.Shahbaz ChangHemoglobin (Bld) [Mass/Vol]12.8 g/tSOmozib14.0-16.0The [facility] HospitalComment on above: Performed By: #### CBC ####[facility] Lkayzczafk542326 [address] [place], [place] [address]Dr.Shahbaz ChangIG #0.10 10e3/ulCritically high0.00-0.03 The [facility] HospitalComment on above:Performed By: #### CBC ####[facility] Mgomzzfipl575726 [address] [place], [place] [address]Dr.Lilajarrod ChangIG % 0.5 %Normal0.0-0.5The [facility] HospitalComment on above:Performed By: #### CBC ####[facility] Vbmimmhdaq102326 [address] [place], [place] [address]Dr. Shahbaz ChangLYMPH #0.7 103/ulCritically low1.2-3.8The [facility] HospitalComment on above:Performed By: #### CBC ####[facility] Bkgfxzacub122226 [address] [place], [place] [address]Dr.Lilajarrod ChangLymphocytes/100 WBC (Bld)6.2 %Critically low20.5-60.0The [facility] HospitalComment on above:Result Comment: dif. not rqd. same as 01/18/22Performed By: #### CBC ####[facility] Qzcpsgcfke865026 [address] [place], [place] [address]Dr.Shahbaz Juan FMANUAL DIFF REQNONormalThe [facility] HospitalComment on above:Performed By: #### CBC ####[facility] Kxirexfarq352726 [address] [place], [place] [address]Dr.Shahbaz RuizMCH (RBC) [Entitic mass]27.2 weDterot97.7-34.0The [facility] HospitalComment on above: Performed By: #### CBC ####[facility] Ttbdiubsuu703026 [address] [place], [place] [address]Dr.Shahbaz RuizMCHC (RBC) [Mass/Vol]31.1 g/dLNormal 29.9-35.2The [facility] HospitalComment on above:Performed By: #### CBC ####[facility] Decfiwobax29[address] [place] [address]Dr. Shahbaz RuizMCV (RBC) [Entitic vol]87.5 dERkggsh22.0-99.0The [facility] Comment on above:Performed By: #### CBC ####[facility] Bobupkxjkg292726 [address] [place], [place] [address]Dr.Shahbaz RuizMONO #0.2 103/ulCritically low 0.3-0.8The [facility] HospitalComment on above:Performed By: #### CBC ####[facility] Sttcuttcny163726 [address] [place], [place] [address]Dr.Lilajarrod Ruiz Monocytes/100 WBC (Bld)1.7 %Normal1.7-12.0The [facility] HospitalComment on above: Performed By: #### CBC ####[facility] Qccafxwzik925926 [address] [place], [place] [address]Dr.Lilajarrod RuizNEUT #9.8 103/ulCritically high1.4-6.5 The [facility] HospitalComment on above:Performed By: #### CBC ####[facility] Fhacmjfqxd6568[address] [place], [place] [address]Dr.Lilajarrod Ruiz Neutrophils/100 WBC (Bld)91.6 %Critically high43.0-75.0The [facility] Comment on above:Performed By: #### CBC ####[facility] Wkmnesxssd417326 [address] [place], [place] [address]Dr.Shahbaz RuizPlatelet mean volume (Bld) [Entitic vol]10.0 fLNormal9.5-13.5The [facility] HospitalComment on above: Performed By: #### CBC ####[facility] Okpbkwpgzk2668[address] [place], [place] [address]Dr.Shahbaz RuizPLT198 103/lsYyimre429-180Jry [facility] County HospitalComment on above:Performed By: #### CBC ####[facility] Kczochkgdy6040[address] [place], [place] [address]Dr.Shahbaz RuizRBC4.71 106/ul Normal4.20-5.40The [facility] County HospitalComment on above:Performed By: #### CBC ####[facility] Gbsygnjhin[address] [place] [address]Dr. Lilalan WxqufDAM96.7 103/ulNormal4.0-11.0[facility] Hospital Cleveland WestComment on above: Performed By: #### CBC ####[facility] Dgflbwosik[address] [place] [address]Dr.Shahbaz RuizSAMMAMISH OF [facility] GLUCOSEon 01-20-2022 Glucose [Mass/Vol]157 mg/dLCritically tizu20-543ZypRegency Hospital Cleveland WestComment on above:Performed By: #### POCGLUC ####[facility] Eltgvqukas180526 [address] [place], [place] [address]Dr. Shahbaz ChangGlucose [Mass/Vol]225 mg/dLCritically boxl36-229GtyRegency Hospital Cleveland WestComment on above:Performed By: #### POCGLUC ####[facility] Lzfjizrdgw5858[address] [place], [place] [address]Dr. Shahbaz ChangGlucose [Mass/Vol]185 mg/dLCritically epdv07-445AcbRegency Hospital Cleveland West Comment on above:Performed By: #### POCGLUC ####[facility] Ukpkgzbghn528826 [address] [place], [place] [address]Dr. Shahbaz ChangGlucose [Mass/Vol]134 mg/dL Critically lptt01-504MfkRegency Hospital Cleveland WestComment on above:Performed By: #### POCGLUC ####[facility] Hmtaixidpi733526 [address] [place], [place] [address]Dr. Lilalan ChangPROF 14(COMP METB)on 87-03-9495Yqvqbuf [Mass/Vol]3.0 g/dL Critically low3.4-5.0[facility] Hospital Cleveland WestComment on above:Performed By: #### CMP ####[facility] Hfxjjvirfi585826 [address] [place], [place] [address]Dr. Shahbaz ChangAlbumin/Globulin [Mass ratio]0.9 {ratio}NormalRegency Hospital Cleveland West Comment on above:Performed By: #### CMP ####[facility] Tzylmgmwjd445026 [address] [place], [place] [address]Dr.Shahbaz ChangALP [Catalytic activity/Vol]81 U/UMbmvjn36-999Ylv [facility] HospitalComment on above:Performed By: #### CMP ####[facility] Wjjromsbaa35[address] [place] [id number]. Yilan ChangALT [Catalytic activity/Vol]14 U/RJcfccv96-48Rue [facility] Comment on above:Performed By: #### CMP ####[facility] Fqxxbsqpse75[address] [place] [id number].Yilan ChangAnion gap [Moles/Vol]13.1 mmol/LNormalThe [facility] HospitalComment on above:Performed By: #### CMP ####[facility] Cevhabnlhb3854[address] [place], [place] [address]Dr. Yilan ChangAST [Catalytic activity/Vol]20 U/ODdvxyh63-84Tmj [facility] Comment on above:Performed By: #### CMP ####[facility] Rjzsrtechi328426 [address] [place], [place] [address]Dr.Yilan ChangBilirubin [Mass/Vol]0.3 mg/dL Normal0.2-1.3The [facility] HospitalComment on above:Performed By: #### CMP ####[facility] Zlahdbmfpo254726 [address] [place], [place] [address]Dr. Yilan ChangCalcium [Mass/Vol]8.5 mg/dLNormal8.5-10.1The [facility] HospitalComment on above:Performed By: #### CMP ####[facility] Aaaywbdvba2320[address] [place], [place] [address]Dr.Yilan ChangChloride [Moles/Vol]107 mmol/LNormal 98-107The [facility] HospitalComment on above:Performed By: #### CMP ####[facility] Upuurpnvfw967[address] [place], [place] [address]Dr.Yilan ChangCO2 [Moles/Vol]24.0 mmol/SHjoirg11.0-30.0The [facility] HospitalComment on above: Performed By: #### CMP ####[facility] Aijbsteqiz706126 [address] [place], [place] [address]Dr.Yilan ChangCreatinine [Mass/Vol]1.00 mg/dLNormal 0.52-1.04The [facility] HospitalComment on above:Performed By: #### CMP ####[facility] Ztbmnsehdo[address] [place] [address]Dr. Yilan ChangEGFR-AF IVORIAN>60Normal>=60The [facility] HospitalComment on above: Performed By: #### CMP ####[facility] Zayegphygx3[address] [place] [id number].Yilan ChangEGFR-NON AF QMJNBOBQ03 mL/min/1.73m2 Critically low>=60The [facility] HospitalComment on above:Performed By: #### CMP ####[facility] Upqudorzdr736326 [address] [place], [place] [address]Dr. Lilalan ChangGlobulin (S) [Mass/Vol]3.4 g/dLNormalThe [facility] HospitalComment on above:Performed By: #### CMP ####[facility] Ikmmllwxyv838526 [address] [place], [place] [address]Dr.Yilan ChangGlucose [Mass/Vol]153 mg/dLCritically dyue15-828Xnr [facility] HospitalComment on above:Performed By: #### CMP ####[facility] Dfnumnggel588526 [address] [place], [place] [address]Dr. Yijarrod ChangPotassium [Moles/Vol]4.1 mmol/LNormal3.4-5.0The [facility] Comment on above:Performed By: #### CMP ####[facility] Sfprxgagnp739426 [address] [place], [place] [address]Dr.Yilan ChangProtein [Mass/Vol]6.4 g/dL Normal6.1-8.2The [facility] HospitalComment on above:Performed By: #### CMP ####[facility] Swlaersmae884826 [address] [place], [place] [address]Dr. Yilan ChangSodium [Moles/Vol]140 mmol/ZZcyoqg120-515Ioo [facility] HospitalComment on above:Performed By: #### CMP ####[facility] Nyhzuwywgs451526 [address] [place], [place] [address]Dr.Yilan ChangUrea nitrogen [Mass/Vol]26.0 mg/dL Critically high7.0-18.0[facility] on above:Performed By: #### CMP ####[facility] Qppynyrkbc748626 [address] [place], [place] [address]Dr. Lilalan ChangUrea nitrogen/Creatinine [Mass ratio]26.5 mg/mgNormalThe [facility] HospitalComment on above:Performed By: #### CMP ####[facility] Ngwfnywxgp488526 [address] [place], [place] [address]Dr.Shahbaz ChangBNPon 65-84-0989Utjzyipedzo peptide B (Bld) [Mass/Vol]117.0 pg/mLNormal<=900.0The [facility] HospitalComment on above:Performed By: #### BNP, CMP ####[facility] Jlykzpgija362926 [address] [place], [place] [address]Dr. Shahbaz ChangCBC AUTO DIFFon 19-10-5905WUSU #0.0 103/ulNormal0.0-0.1[facility] on above:Performed By: #### CBC ####[facility] Pvgantvbgr018326 [address] [place], [place] [address]Dr.Lilalan ChangBasophils/100 WBC (Bld)0.0 %Critically low0.2-2.0[facility] on above:Performed By: #### CBC ####[facility] Afrcvkuwde026226 [address] [place], [place] [address]Dr. Yilan ChangEO #0.0 103/ulNormal0.0-0.7The [facility] HospitalComcorewell health [facility] on above: Performed By: #### CBC ####[facility] Ofnbhfutct235926 [address] [place], [place] [address]Dr.Lilalan ChangEosinophils/100 WBC (Bld)0.0 %Critically low0.9-7.0The [facility] HospitalComcorewell health [facility] on above:Performed By: #### CBC ####[facility] Bazeqgbupz226626 [address] [place], [place] [address]Dr. Lilalan ChangErythrocyte distribution width (RBC) [Ratio]13.4 %Riqhwy45.0-15.0The [facility] Hospitalment on above:Performed By: #### CBC ####[facility] Nensrfvovu34[address] [place] [address]Dr.Shahbaz RuizHematocrit (Bld) [Volume fraction]46.3 %Lxyavk45.0-48.0The [facility] HospitalComment on above:Performed By: #### CBC ####[facility] Fcdlcbztop5[address] [place] [address]Dr.Shahbaz RuizHemoglobin (Bld) [Mass/Vol]14.3 g/dL Egifsq70.0-16.0The [facility] HospitalComment on above:Performed By: #### CBC ####[facility] Elrpfbvbgq806426 [address] [place], [place] [address]Dr. Yilan ChangIG #0.00 10e3/ulNormal0.00-0.03The [facility] HospitalComment on above: Performed By: #### CBC ####[facility] Arolimirzq063726 [address] [place], [place] [address]Dr.Shahbaz ChangIG %0.0 %Normal0.0-0.5The [facility] HospitalComment on above:Performed By: #### CBC ####[facility] Ocxfqjmpvn9750[address] [place], [place] [address]Dr.Shahbaz RuizLYMPH #0.6 103/ulCritically low1.2-3.8The [facility] HospitalComment on above:Performed By: #### CBC ####[facility] Tpykwkmagl800026 [address] [place], [place] [address]Dr.Shahbaz RuizLymphocytes/100 WBC (Bld)14.2 %Critically low20.5-60.0The [facility] HospitalComment on above:Performed By: #### CBC ####[facility] Rqpcjdzwpe296726 [address] [place], [place] [address]Dr.Lilajarrod RuizMANUAL DIFF REQ NONormalThe [facility] HospitalComment on above:Performed By: #### CBC ####[facility] Qxzbfgpmfq069926 [address] [place], [place] [address]Dr. Shahbaz RuizMCH (RBC) [Entitic mass]27.7 lsKdwqsn20.7-34.0The [facility] Comment on above:Performed By: #### CBC ####[facility] Saocgjwjdr[address] [place] [address]Dr.Shahbaz LightHC (RBC) [Mass/Vol]30.9 g/dL Oykjdz67.9-35.2The [facility] HospitalComment on above:Performed By: #### CBC ####[facility] Btespjdrok949726 [address] [place], [place] [address]Dr. Shahbaz RuizMCV (RBC) [Entitic vol]89.6 oQQrvhge72.0-99.0The [facility] Comment on above:Performed By: #### CBC ####[facility] Spzepjlsmc185926 [address] [place], [place] [address]Dr.Shahbaz RuizMONO #0.0 103/ulCritically low 0.3-0.8The [facility] HospitalComment on above:Performed By: #### CBC ####[facility] Cfsqewumrm487226 [address] [place], [place] [address]Dr.Shahbaz Ruiz Monocytes/100 WBC (Bld)1.0 %Critically low1.7-12.0The [facility] HospitalComment on above:Performed By: #### CBC ####[facility] Cykpkoiwzm219526 [address] [place], [place] [address]Dr.Shahbaz RuizNEUT #3.5 103/ulNormal1.4-6.5The [facility] HospitalComment on above:Performed By: #### CBC ####[facility] Hqopbwcrba615926 [address] [place], [place] [address]Dr.Shahbaz RuizNeutrophils/100 WBC (Bld)84.8 %Critically high43.0-75.0The [facility] HospitalComment on above: Performed By: #### CBC ####[facility] Odeugdwait362026 [address] [place], [place] [address]Dr.Shahbaz RuizPlatelet mean volume (Bld) [Entitic vol] 9.8 fLNormal9.5-13.5The [place] HospitalComment on above:Performed By: #### CBC ####[facility] Qisiqsrdhg979626 [address] [place], [place] [address]Dr. Yilan GlwyhBOE569 103/uvKngnsz237-490Awd [facility] HospitalComment on above: Performed By: #### CBC ####[facility] Vnbncejcmm051926 [address] [place], [place] [address]Dr.Shahbaz ChangRBC5.17 106/ulNormal4.20-5.40The [facility] HospitalComment on above:Performed By: #### CBC ####[facility] Sokvlhhnlb048226 [address] [place], [place] [address]Dr.Shahbaz ChangWBC4.2 103/ul Normal4.0-11.0The [facility] HospitalComment on above:Performed By: #### CBC ####[facility] Pqueoxmxkj042726 [address] [place], [place] [address]Dr. Shahbaz ChangLACTATE/LACTIC ACIDon 40-63-8362Ixajbrk [Moles/Vol]1.7 mmol/LNormal 0.7-2.0The [facility] HospitalComment on above:Performed By: #### LACT ####[facility] Toviveuxzv165426 [address] [place], [place] [address]Dr. Shahbaz Chelsea [facility] HospitalPOINT OF CARE GLUCOSEon 39-88-1162Amqsesr [Mass/Vol]173 mg/dL Critically pksz32-555IvkRegency Hospital Cleveland WestComment on above:Performed By: #### POCGLUC ####[facility] Plwxeljciy885326 [address] [place], [place] [address]Dr. Lilajarrod ChangGlucose [Mass/Vol]181 mg/dLCritically pxee76-618LhpRegency Hospital Cleveland WestComment on above:Performed By: #### POCGLUC ####[facility] Tlavpbtugu3610[address] [place], [place] [address]Dr. Shahbaz ChangGlucose [Mass/Vol]154 mg/dLCritically uiau81-570ZoeRegency Hospital Cleveland WestComment on above: Performed By: #### POCGLUC ####[facility] Vjncbmgicr314526 [address] [place], [place] [address]Dr. Lilajarrod ChangPROF 14(COMP METB)on 63-16-4148Wtzpxbx [Mass/Vol]3.5 g/dLNormal3.4-5.0The [facility] HospitalComment on above:Performed By: #### BNP, CMP ####[facility] Gqvgmeghhg[address] [place] [id number]. Yilan ChangAlbumin/Globulin [Mass ratio]0.9 {ratio}NormalThe [facility] HospitalComment on above:Performed By: #### BNP, CMP ####[facility] Oaocqzjyih6[address] [place] [address]Dr. Yilan ChangALP [Catalytic activity/Vol]107 U/MQaoict92-503Zpl [facility] HospitalComment on above:Performed By: #### BNP, CMP ####[facility] Zaaqdbbbwy53[address] [place] [address]Dr. Yilan ChangALT [Catalytic activity/Vol]18 U/L Ltwglh74-83Iwm [facility] HospitalComment on above:Performed By: #### BNP, CMP ####[facility] Apyqyvpxbe42[address] [place] [address]Dr. Yilan ChangAnion gap [Moles/Vol]14.1 mmol/LNormalThe [facility] HospitalComment on above:Performed By: #### BNP, CMP ####[facility] Cgxgulnkpw5[address] [place], [place] [address]Dr. Yilan ChangAST [Catalytic activity/Vol]19 U/L Bwfabw98-86Zzm [facility] Hospitalment on above:Performed By: #### BNP, CMP ####[facility] Jdftkltise68[address] [place] [address]Dr. Yilan ChangBilirubin [Mass/Vol]0.5 mg/dLNormal0.2-1.3The [facility] Comment on above:Performed By: #### BNP, CMP ####[facility] Tyyvjnlmti05[address] [place] [address]Dr. Yilan ChangCalcium [Mass/Vol]8.5 mg/dLNormal8.5-10.1The [facility] HospitalComment on above:Performed By: #### BNP, CMP ####[facility] Bxmbayraaa56[address] [place] [address]Dr. Yilan ChangChloride [Moles/Vol]103 mmol/LNormal 98-107The [place] HospitalComment on above:Performed By: #### BNP, CMP ####[facility] Pxnmdcivxd357426 [address] [place], [place] [address]Dr. Yilan ChangCO2 [Moles/Vol]25.4 mmol/YGkxmwd70.0-30.0The [facility] HospitalComment on above:Performed By: #### BNP, CMP ####[facility] Kjqlvypfty091526 [address] [place], [place] [address]Dr. Yilan ChangCreatinine [Mass/Vol]1.48 mg/dL Critically high0.52-1.04The [facility] HospitalComment on above:Performed By: #### BNP, CMP ####[facility] Psfrdvdbku761726 [address] [place], [place] [address]Dr. Yilan ChangEGFR-AF ADVAXXTI25 mL/min/1.79f0Xjwlskyouf low>=60The [facility] HospitalComment on above:Performed By: #### BNP, CMP ####[facility] Ooaponlmcd030326 [address] [place], [place] [address]Dr. Yilan ChangEGFR- NON AF IDYLHMHX83 mL/min/1.98k7Iwhauoblsd low>=60The [facility] HospitalComment on above:Performed By: #### BNP, CMP ####[facility] Quzadtiqiv193726 [address] [place], [place] [address]Dr. Yilan ChangGlobulin (S) [Mass/Vol]3.7 g/dL NormalThe [facility] HospitalComment on above:Performed By: #### BNP, CMP ####[facility] Ctzjpdnqus242726 [address] [place], [place] [address]Dr. Yilan ChangGlucose [Mass/Vol]203 mg/dLCritically doeg17-865Ilt [facility] Comment on above:Performed By: #### BNP, CMP ####[facility] Woeueuemqf342826 [address] [place], [place] [address]Dr. Yilan ChangPotassium [Moles/Vol]3.5 mmol/LNormal3.4-5.0The [facility] HospitalComment on above: Performed By: #### BNP, CMP ####[facility] Ekvwaxnjve809926 [address] [place], [place] [address]Dr. Yilan ChangProtein [Mass/Vol]7.2 g/dLNormal6.1-8.2 The [facility] HospitalComment on above:Performed By: #### BNP, CMP ####[facility] Youitbsxgx445326 [address] [place], [place] [address]Dr. Shahbaz Ruiz Sodium [Moles/Vol]139 mmol/ZDwexus354-904Wmi [facility] HospitalComment on above: Performed By: #### BNP, CMP ####[facility] Mdklmmshnc930026 [address] [place], [place] [address]Dr. Shahbaz RuizUrea nitrogen [Mass/Vol]17.0 mg/dL Normal7.0-18.0The [facility] HospitalComment on above:Performed By: #### BNP, CMP ####[facility] Zsmnffcxdj350826 [address] [place], [place] [address]Dr. Shahbaz RuizUrea nitrogen/Creatinine [Mass ratio]11.5 mg/mgNoMetroHealth Parma Medical CenterComment on above:Performed By: #### BNP, CMP ####[facility] Ngnkbikzty713226 [address] [place], [place] [address]Dr. Shahbaz RuizBNPon [id number] peptide B (Bld) [Mass/Vol]55.0 pg/mLNormal<=900.0The [facility] HospitalComment on above:Performed By: #### CMP, BNP, HSTROPN ####[facility] Sljywcsjmu528[address] [place], [place] [address]Dr. Shahbaz Juan FCBC W MANUAL DIFFon 20-72-7458QIPVCYNP LYMPH #0.12 103/ulNormTrinity Health System West CampusComment on above:Performed By: #### CBCMAN ####[facility] Pkhtwiclgz846626 [address] [place], [place] [address]Dr. Shahbaz Juan F ATYPICAL LYMPH %2 %NormalThe [facility] HospitalComment on above:Performed By: #### CBCMAN ####[facility] Sbgjptokbz070526 [address] [place], [place] [address]Dr. Lilajarrod RuizBAND #0.0 103/ulNormal0.0-0.3The [facility] HospitalComment on above:Performed By: #### CBCMAN ####[facility] Jjtxldmhhb47[address] [place] [id number]. Yilan ChangBAND %0 %Normal0-5The [facility] Comment on above:Performed By: #### CBCMAN ####[facility] Rvxxgqncaj32[address] [place] [id number]. Yilan ChangBASOM #0.00 103/ulNormal 0.00-0.10The [facility] HospitalComment on above:Performed By: #### CBCMAN ####[facility] Gwlktvllyv16[address] [place] [address]Dr. Yilan ChangBASOM %0.0 %Critically low0.2-2.0The [facility] HospitalComment on above:Performed By: #### CBCMAN ####[facility] Enjrtfezck373626 [address] [place], [place] [address]Dr. Yilan ChangBLAST #NormalRegency Hospital Cleveland West Comment on above:Performed By: #### CBCMAN ####[facility] Vbflafxlja13[address] [place], [place] [address]Dr. Yilan ChangBLAST %NormalThe [facility] HospitalComment on above:Performed By: #### CBCMAN ####[facility] Tverjszchu501[address] [place], [place] [address]Dr. Yilan ChangCORRECTED WBC Normal4.0-11.0The [facility] HospitalComment on above:Performed By: #### CBCMAN ####[facility] Haaobwylug213626 [address] [place], [place] [address]Dr. Yilan ChangEOS #0.25 103/ulNormal0.00-0.70The [facility] HospitalComment on above: Performed By: #### CBCMAN ####[facility] Bdyxuqecbw830726 [address] [place], [place] [address]Dr. Yilan ChangEOS%4.0 %Normal0.9-7.0The [facility] HospitalComment on above:Performed By: #### CBCMAN ####[facility] Obyktlnbgt347126 [address] [place], [place] [address]Dr. Yilan ZidarSOG78.8 % Ihzaen26.0-48.0The Ej HospitalComment on above:Performed By: #### CBCMAN ####[facility] Rsllbdlton89[address] [place] [address]Dr. Shahbaz RuizHGB14.9 g/vbOceghu05.0-16.0The [facility] HospitalComment on above: Performed By: #### CBCMAN ####[facility] Czjarylgyw7[address] [place] [address]Dr. Shahbaz StoutALLEGHANY HEALTH #0.68 103/ulCritically low 1.20-3.80The [facility] HospitalComment on above:Performed By: #### CBCMAN ####[facility] Rbsoclwmzf34[address] [place], [place] [address]Dr. Shahbaz StoutHM%11.0 %Critically low20.5-60.0The [facility] HospitalComment on above:Performed By: #### CBCMAN ####[facility] Waeyagvubs2919[address] [place], [place] [address]Dr. Shahbaz RuizMCH27.6 raBvvtlt00.7-34.0The [facility] HospitalComment on above:Performed By: #### CBCMAN ####[facility] Kgxdoleqsi2360[address] [place], [place] [address]Dr. Shahbaz RuizMCHC31.8 g/dl Kccrgc36.9-35.2The [facility] HospitalComment on above:Performed By: #### CBCMAN ####[facility] Szdjgayyuk[address] [place], [place] [address]Dr. Shahbaz RuizMCV86.8 hHGbcrxt08.0-99.0The [facility] HospitalComment on above: Performed By: #### CBCMAN ####[facility] Nxwhhquwdh[address] [place], [place] [address]Dr. Shahbaz ChangMETAMYELOCYTE #NormalThe [facility] HospitalComcorewell health [facility] on above:Performed By: #### CBCMAN ####[facility] Vzvmhcthyx[address] [place] [address]Dr. Lilalan ChangMETAMYELOCYTE %NormalThe [facility] HospitalComment on above:Performed By: #### CBCMAN ####[facility] Nkaohtpxxy86[address] [place] [id number]. Yilan ChangMONOM#0.19 103/ulCritically low0.30-0.80The [facility] HospitalComment on above:Performed By: #### CBCBRICE ####[facility] Keqpnjvdfi6[address] [place] [address]Dr. Yilan ChangMONOM%3.0 %Normal1.7-12.0The [facility] HospitalComment on above:Performed By: #### CBCBRICE ####[facility] Kvgqryjyfz3[address] [place] [address]Dr. Yilan ChangMPV 9.6 fLNormal9.5-13.5The [facility] HospitalComment on above:Performed By: #### CBCBRICE ####[facility] Zxtquydrbp88[address] [place] [address]Dr. Yilan ChangMYELOCYTE #NormalThe [facility] HospitalComment on above: Performed By: #### CBCBRICE ####[facility] Wkvujgxdfj25[address] [place] [address]Dr. Yilan ChangMYELOCYTE %NormalThe [facility] Comment on above:Performed By: #### CBCBRICE ####[facility] Jxiyhudyxp338[address] [place], [place] [address]Dr. Yilan ChangNRBCNormalThTrinity Health System West Campusment on above:Performed By: #### CBCBRICE ####[facility] Crocfgjsmz45[address] [place] [address]Dr. Yilan WqicrZNJ574 103/ul Ovuqam760-799Bjb [facility] HospitalComment on above:Performed By: #### CBCMAN ####[facility] Irxhxbqasi0[address] [place] [id number]. Yilan ChangRBC5.39 106/ulNormal4.20-5.40The [facility] HospitalComment on above: Performed By: #### CBCMAN ####[facility] Uurejqludk88[address] [place] [id number]. Yilan EtmqeWFV06.7 %Ymrydo10.0-15.0The [facility] HospitalComment on above:Performed By: #### CBCMAN ####[facility] Ujnnfeclcw13[address] [place] [id number]. Shahbaz TannerG #4.96 103/ulNormal1.40-6.50[facility] Hospital [facility] WestComment on above:Performed By: #### CBCMAN ####[facility] Ycmnxbxiti9[address] [place] [id number]. Shahbaz TannerG %80.0 %Critically high43.0-75.0[facility] Comment on above:Performed By: #### CBCMAN ####[facility] Lggakprebe9[address] [place] [address]Dr. Shahbaz RuizWBC6.2 103/ulNormal4.0-11.0 The [facility] HospitalComment on above:Performed By: #### CBCMAN ####[facility] Jgpueqcykl39[address] [place] [address]Dr. Shahbaz Ruiz CULTURE BLOODon 64-45-6761Uqhquhcfdml examination of blood, cultureCulture Observations: No growth at 5 days.NormalThe [facility] HospitalComment on above:Performed By: #### BLDCX2 ####[facility] Dxujgmrtrf050[address] [place], [place] [address]Dr. Shahbaz RuizMicroscopic examination of blood, cultureCulture Observations: No growth at 5 daysNormalThe [facility] HospitalComment on above:Performed By: #### BLDCX1 ####[facility] Fcmojbtkrf539[address] [place], [place] [address]Dr. Shahbaz RuizCovid-19 PCR (CVDTBH)on [id number]-CoV-2 (COVID-19) RNA PAVAN+probe Ql (Unsp spec)Not detectedNormalNOT DETECTEDThe [facility] Comment on above:Result Comment: This test is not yet approved or cleared by the [place] FDA. When there are no FDA-approved or cleared tests available, and other criteria are met, FDA can make tests available under an emergency access mechanism called an Emergency Use Authorization (EUA). The EUA for this test is supported by the Lead Advisor of Health and Human Service's (HHS's) declaration that circumstances exist to justify the emergency use of in vitro diagnostics for the detection and/or diagnosis of the virus that causes COVID- 19. This EUA will remain in effect (meaning [...] presence of clinical signs and symptomsconsistent with SARS-CoV-2.Performed By: #### CVDTBH ####[facility] Pejjauhevc5996[address] [place], [place] [address]Dr. Shahbaz RuizD-DIMERon 65-86-4856F-DIMER0.29 mg/L FEUNormal0.19-0.50[facility] on above:Performed By: #### DDIM ####[facility] Awmdmiwwvr576[address] [place], [place] [address]Dr. Shahbaz ChangD-DIMER COMMENTSSEE [facility] on above:Result Comment: Increases in D-Dimer concentration observed with thromboembolic events [...] stress, and generalized hospitalization. Performed By: #### DDIM ####[facility] Wyvtxmvlkk0[address] [place], [place] [address]Dr. Shahbaz ChangINFLUENZA A AND B AGon 01-18-2022 INFLUANEGHSEE [facility] on above:Result Comment: Negative for Flu A protein angiten. Infection due to Flu A cannot be ruled out. FluA angiten in the sample may be below the detection limit of the test. Performed By: #### INFLUAB ####[facility] Npgvztkrfn1625[address] [place], [place] [address]Dr. Shahbaz ChangINFLUBNEGHSEE BELOWNormalThe Ej HospitalComment on above:Result Comment: Negative for Flu B protein antigen. Infection due to Flu B cannot be ruled out. FluB antigen in the sample may be below the detection limit of the test.Performed By: #### INFLUAB ####[facility] Jjqtwqtzuf0566[address] [place], [place] [address]Dr. Shahbaz Ruiz INFLUENZA A AGNegativeNormalNEGATIVE SEE COMMENTThe [facility] HospitalComment on above:Performed By: #### INFLUAB ####[facility] Sojswgsmpp[address] [place], [place] [address]Dr. Shahbaz RuizINFLUENZA B AGNegativeNormalNEGATIVE SEE COMMENTThe [facility] HospitalComment on above:Performed By: #### INFLUAB ####[facility] Lpvirpzhkf[address] [place], [place] [address]Dr. Shahbaz RuizINTERNAL CONTROLSWithin Normal LimitsNormalWithin Normal LimitsThe [facility] HospitalComment on above:Performed By: #### INFLUAB ####[facility] Ukkfonhtsn[address] [place], [place] [address]Dr. Shahbaz Ruiz LACTATE/LACTIC ACIDon 32-00-0383Ieozlnh [Moles/Vol]1.0 mmol/LNormal0.7-2.0The [facility] HospitalComment on above:Performed By: #### LACT ####[facility] Ieimndgjhv7[address] [place], [place] [address]Dr. Shahbaz RuizPROF 14(COMP METB)on 68-21-4203Wkfuxsx [Mass/Vol]3.8 g/dLNormal3.4-5.0The [facility] Comment on above:Performed By: #### CMP, BNP, HSTROPN ####[facility] Wlbdggnatk[address] [place], [place] [address]Dr. Shahbaz Ruiz Albumin/Globulin [Mass ratio]1.0 {ratio}NormalThe [facility] HospitalComment on above:Performed By: #### CMP, BNP, HSTROPN ####[facility] Htjeufswbr[address] [place], [place] [address]Dr. Shahbaz RuizALP [Catalytic activity/Vol] 116 U/LSyuqsk17-557Pkt [facility] Hospitalment on above:Performed By: #### CMP, BNP, HSTROPN ####[facility] [address] [place] [address]Dr. Yilan ChangALT [Catalytic activity/Vol]16 U/AOemmuo11-87Oda [facility] Hospitalment on above:Performed By: #### CMP, BNP, HSTROPN ####[facility] Usdxfvjbvg466[address] [place], [place] [address]Dr. Yilan ChangAnion gap [Moles/Vol]9.4 mmol/LNormalThe [facility] HospitalComment on above:Performed By: #### CMP, BNP, HSTROPN ####[facility] Ulqhmertam277[address] [place], [place] [address]Dr. Yilan ChangAST [Catalytic activity/Vol]19 U/LNormal 15-37The [facility] Hospitalment on above:Performed By: #### CMP, BNP, HSTROPN ####[facility] Doyqgwznsa19[address] [place], [place] [address]Dr. Yilan ChangBilirubin [Mass/Vol]0.5 mg/dLNormal0.2-1.3The [facility] Comment on above:Performed By: #### CMP, BNP, HSTROPN ####[facility] Dedkdvgwdc9598[address] [place], [place] [address]Dr. Yilan ChangCalcium [Mass/Vol]8.9 mg/dLNormal8.5-10.1The [facility] Hospitalment on above:Performed By: #### CMP, BNP, HSTROPN ####[facility] Aydqxdzgbl585[address] [place], [place] [address]Dr. Yilan ChangChloride [Moles/Vol]104 mmol/LNormal 98-107The [facility] HospitalComment on above:Performed By: #### CMP, BNP, HSTROPN ####[facility] Scatxupotq356[address] [place], [place] [address]Dr. Yilan ChangCO2 [Moles/Vol]27.2 mmol/TXtdycl61.0-30.0The [facility] HospitalComment on above:Performed By: #### CMP, BNP, HSTROPN ####[facility] [address]unsaudd[address] [place] [address]Dr. Yilan ChangCreatinine [Mass/Vol]0.99 mg/dLNormal0.52-1.04The [facility] HospitalComment on above: Performed By: #### CMP, BNP, HSTROPN ####[facility] Qwpcnkfdnl39[address] [place], [place] [address]Dr. Yilan ChangEGFR-AF IVORIAN>60Normal>=60The [facility] Hospitalment on above:Performed By: #### CMP, BNP, HSTROPN ####[facility] Kzvmbrrxbu59[address] [place], [place] [address]Dr. Yilan ChangEGFR-NON AF SAMHUVDB49 mL/min/1.22z2Htgszfknfi low>=60The [facility] HospitalComment on above:Performed By: #### CMP, BNP, HSTROPN ####[facility] Gnieypuxcs1799[address] [place], [place] [address]Dr. Yilan Ruiz Globulin (S) [Mass/Vol]3.8 g/dLNormalThe [facility] HospitalComment on above: Performed By: #### CMP, BNP, HSTROPN ####[facility] Utciedzdsd25[address] [place], [place] [address]Dr. Yilan ChangGlucose [Mass/Vol]104 mg/dLNormal 74-106The [facility] Hospitalment on above:Performed By: #### CMP, BNP, HSTROPN ####[facility] Gjctzqwwxo60[address] [place], [place] [address]Dr. Yilan ChangPotassium [Moles/Vol]3.6 mmol/LNormal3.4-5.0The [facility] Comment on above:Performed By: #### CMP, BNP, HSTROPN ####[facility] Ynujkdiiug9[address] [place], [place] [address]Dr. Yilan ChangProtein [Mass/Vol]7.6 g/dLNormal6.1-8.2The [facility] HospitalComment on above:Performed By: #### CMP, BNP, HSTROPN ####[facility] [address] [place] [address]Dr. Yilan ChangSodium [Moles/Vol]137 mmol/LNormal 137-145The [facility] HospitalComment on above:Performed By: #### CMP, BNP, HSTROPN ####[facility] [address]zv[address] [place] [address]Dr. Yilan ChangUrea nitrogen [Mass/Vol]9.0 mg/dLNormal7.0-18.0The [facility] HospitalComment on above:Performed By: #### CMP, BNP, HSTROPN ####[facility] [address] [place] [address]Dr. Yilan ChangUrea nitrogen/Creatinine [Mass ratio]9.1 mg/mgNormalThe [facility] HospitalComment on above:Performed By: #### CMP, BNP, HSTROPN ####[facility] J[address]cjxpzpk[address] [place] [address]Dr. Lilalan ChangTROPONIN, HIGH SENSITIVITYon 21-65-5909TCAUSN7.4 pg/mLNormal4.0-35.5The [facility] HospitalComment on above: Result Comment: CUT-OFF POINTS HAVE BEEN ESTABLISHED BASED ON THE FOURTH UNIVERSAL DEFINITIONS OF MYOCARDIALINFARCTION. THE UPPER REFERENCE LIMIT (URL) OF TROPONIN, DEFINED THE 99TH PERCENTILE OFcTnI DISTRIBUTION IN A REFERENCE POPULATION, HAS BEEN CONFIRMED THE DECISION THRESHOLDFOR SC DIAGNOSIS. Performed By: #### CMP, BNP, HSTROPN ####[facility] [address] [place] [address]Dr. Yilan ChangXR CHEST 2 Von 05-89-9674RH CHEST 2 VNormalRegency Hospital Cleveland WestURINALYSIS REFLEXon 24-14-2161Imcogtrslp (U)CLEAR NormalCLEARThe [facility] LimaComment on above:Order Comment: No: Do not add to previous drawPerformed By: #### 07384, 33883, 80591, 20087, 47126, 51631 #### [facility] [address] [place] [address], USABilirubin [Mass/Vol]NegativeNormalNEGATIVEThe [facility] LimaComment on above:Order Comment: No: Do not add to previous drawPerformed By: #### 64794, 00496, 68933, 15207, 33437, 87535 #### [facility] [address] [place] [address], USABLOODNegativeNormalNEGATIVEThe [facility] LimaComment on above:Order Comment: No: Do not add to previous drawPerformed By: #### 07551, 31520, 83480, 53155, 19332, 47855 #### [facility] [address] [place] [address], USAColor (U)YELLOWNormalYELLOWThe [facility] LimaComment on above:Order Comment: No: Do not add to previous drawPerformed By: #### 02511, 01848, 65421, 56489, 40517, 77861 #### [facility] [address] [place] [address], USAGlucose [Mass/Vol]NegativeNormalNEGATIVEThe [facility] LimaComment on above:Order Comment: No: Do not add to previous drawPerformed By: #### 76920, 98446, 54033, 00808, 30010, 42648 #### [facility] [address] [place] [address], USAKETONENegativeNormalNEGATIVEThe [facility] LimaComment on above:Order Comment: No: Do not add to previous draw Performed By: #### 52207, 99416, 74713, 19363, 25975, 56340 #### [facility] [address] [place] [address], USALEUK ESTERNegativeNormalNEGATIVEThe [facility] LimaComment on above:Order Comment: No: Do not add to previous draw Performed By: #### 87191, 26741, 67729, 41892, 37778, 16562 #### [facility] [address] [place] [address], USAMICRO NOT DONENormalThe [facility] Comment on above:Order Comment: No: Do not add to previous drawResult Comment: Microscopics not performed on urines with negative chemical reactions unless requested in original orderPerformed By: #### 73217, 51417, 34793, 06196, 99303, 92571 #### [facility] [address] [place] [address], USANitrite Ql (U)NegativeNormalNEGATIVEThe [facility] LimaComment on above:Order Comment: No: Do not add to previous drawPerformed By: #### 35217, 30765, 32859, 81812, 53822, 34023 #### [facility] [address] [place] [address], USApH (Bld)5.3Nvoksr1.0-8.0The [facility] LimaComment on above:Order Comment: No: Do not add to previous drawPerformed By: #### 53475, 50066, 41905, 41040, 62307, 93655 #### [facility] [address] [place] [address], USAProtein (U) [Mass/Vol]NegativeNormalNEGATIVEThe [facility] LimaComment on above:Order Comment: No: Do not add to previous drawPerformed By: #### 57027, 41471, 86615, 41063, 02831, 42284 #### [facility] [address] [place] [address], USASPEC GRAV1.804Hzf5.015-1.020The [facility] LimaComment on above:Order Comment: No: Do not add to previous draw Performed By: #### 15045, 33547, 86724, 96731, 78818, 80506 #### [facility] [address] [place] [address], USABASIC METABOLIC PANELon 12-35-1733Eodumur [Mass/Vol]8.4 mg/dLLow8.6-10.3The [facility] LimaComment on above:Order Comment: No: Do not add to previous drawPerformed By: #### 33392, 79403, 00061, 74034, 17714, 47829 #### [facility] [address] [place] [address], USAChloride [Moles/Vol]101 mmol/MUmetpn15-702Wxl [facility] LimaComment on above:Order Comment: No: Do not add to previous drawPerformed By: #### 53318, 21440, 25879, 28820, 93148, 20743 #### [facility] [address] [place] [address], USACO2 [Moles/Vol]29 mmol/VVowgpe56-06Jpj [facility] LimaComment on above:Order Comment: No: Do not add to previous draw Performed By: #### 52962, 71530, 88100, 59025, 94614, 46687 #### [facility] [address] [place] [address], USACreatinine [Mass/Vol]0.79 mg/dLNormal0.60-1.20The [facility] LimaComment on above:Order Comment: No: Do not add to previous drawPerformed By: #### 43146, 97123, 07657, 17619, 90650, 52944 #### [facility] [address] [place] [address], USAGFR/1.73 sq M predicted among blacks MDRD (S/P/Bld) [Vol rate/Area]mL/min/{1.73_m2}Normal>60The [facility] Comment on above:Order Comment: No: Do not add to previous drawPerformed By: #### 46884, 99404, 06628, 50394, 77162, 22019 #### [facility] [address] [place] [address], USAGFR/1.73 sq M predicted among non-blacks MDRD (S/P/Bld) [Vol rate/Area]mL/min/{1.73_m2}Normal>60The [facility] Comment on above:Order Comment: No: Do not add to previous drawPerformed By: #### 28831, 59691, 72962, 57004, 84403, 88521 #### [facility] [address] [place] [address], USAGlucose [Mass/Vol]91 mg/aUBjvmup66-539Zue [facility] LimaComment on above:Order Comment: No: Do not add to previous drawPerformed By: #### 21945, 94192, 58012, 08628, 62257, 56339 #### [facility] [address] [place] [address], USAPotassium [Moles/Vol]3.9 mmol/LNormal3.5-5.1The [facility] LimaComment on above:Order Comment: No: Do not add to previous drawPerformed By: #### 47455, 60692, 77217, 24994, 56629, 05863 #### [facility] [address] [place] [address], USASodium [Moles/Vol]133 mmol/NSvx005-584Ylj [facility] LimaComment on above:Order Comment: No: Do not add to previous drawPerformed By: #### 78789, 22326, 23441, 06896, 60650, 26131 #### [facility] [address] [place] [address], USAUrea nitrogen [Mass/Vol]10 mg/dLNormal7-25The [facility] LimaComment on above:Order Comment: No: Do not add to previous drawPerformed By: #### 64361, 70358, 32686, 43518, 78014, 95340 #### [facility] [address] [place] [address], USACBC W/DIFFon 29-57-6239KAS BASOPHILS0.0 10*3/uLNormal 0.0-0.2The [facility] LimaComment on above:Order Comment: No: Do not add to previous drawPerformed By: #### 58261, 34127, 34545, 39650, 44628, 75195 #### [facility] [address] [facility] [address], USAABS IMM GRANS0.0 10*3/uLNormal0.0-0.2The [facility] LimaComment on above:Order Comment: No: Do not add to previous drawPerformed By: #### 28576, 46837, 96418, 81373, 98911, 49274 #### [facility] [address] [facility] [place] [address], USAABS NEUTROPHILS4.5 10*3/uLNormal1.6-7.6The [facility] LimaComment on above:Order Comment: No: Do not add to previous drawPerformed By: #### 76037, 69687, 48755, 85881, 57481, 30595 #### [facility] [address] [facility] [place] [address], USABasophils/100 WBC (Bld)0.2 %Normal0.0-1.0The [facility] LimaComment on above:Order Comment: No: Do not add to previous drawPerformed By: #### 94927, 19179, 87862, 30172, 06659, 85941 #### [facility] [address] [facility] [place] [address], USAEosinophils (Bld) [#/Vol]0.2 10*3/uLNormal0.0-0.5The [facility] LimaComment on above:Order Comment: No: Do not add to previous drawPerformed By: #### 15583, 96763, 78255, 60810, 36821, 60583 #### [facility] [address] [place] [address], USAEosinophils/100 WBC (Bld)3.6 %Normal0.0-6.0The [facility] LimaComment on above:Order Comment: No: Do not add to previous drawPerformed By: #### 55957, 66654, 10879, 92402, 34094, 85763 #### [facility] [address] [place] [address], USAErythrocyte distribution width (RBC) [Ratio]12.7 %Normal 11.5-15.0The [facility] LimaComment on above:Order Comment: No: Do not add to previous drawPerformed By: #### 97618, 61615, 30260, 74379, 88664, 25904 #### [facility] [address] [facility] [place] [address], USAHematocrit (Bld) [Volume fraction]42.9 %Sruoeq23.0-45.0The [facility] LimaComment on above:Order Comment: No: Do not add to previous drawPerformed By: #### 02853, 29651, 94022, 35723, 77155, 43524 #### [facility] [address] [facility] [address], USAHemoglobin (Bld) [Mass/Vol]13.5 g/cXLvkjqh45.0-15.0The [facility] LimaComment on above:Order Comment: No: Do not add to previous drawPerformed By: #### 52586, 94763, 02843, 10403, 55659, 01317 #### [facility] [address] [facility] [address], USAIMMATURE GRANS0.3 %Normal0.0-1.0The [facility] LimaComment on above:Order Comment: No: Do not add to previous draw Performed By: #### 17862, 17182, 76896, 48602, 80948, 93488 #### [facility] [address] [place] [address], USALymphocytes (Bld) [#/Vol]1.1 10*3/uLLow1.2-4.0The [facility] LimaComment on above:Order Comment: No: Do not add to previous drawPerformed By: #### 37588, 48864, 59986, 18084, 21543, 59675 #### [facility] [address] [place] [address], USALymphocytes/100 WBC (Bld)18.0 %Low20.0-45.0The [facility] LimaComment on above:Order Comment: No: Do not add to previous drawPerformed By: #### 97007, 76620, 68526, 81652, 34618, 39258 #### [facility] [address] [facility] [place] [address], [facility]H (RBC) [Entitic mass]27.4 wrFfmoos48.0-33.0The [facility] LimaComment on above:Order Comment: No: Do not add to previous drawPerformed By: #### 13293, 43240, 24710, 31268, 52332, 33840 #### [facility] [address] [facility] [place] [address], [facility]ONHC (RBC) [Mass/Vol]31.5 g/dLLow32.0-35.0The [facility] LimaComment on above:Order Comment: No: Do not add to previous drawPerformed By: #### 39703, 76257, 42924, 03339, 73714, 75447 #### [facility] [address] [facility] [address], [facility]WTONV (RBC) [Entitic vol]87.0 uYJmalhm51.0-98.0The [facility] LimaComment on above:Order Comment: No: Do not add to previous drawPerformed By: #### 47946, 48316, 45192, 93979, 06465, 69124 #### [facility] [address] [place] [address], USAMonocytes (Bld) [#/Vol]0.3 10*3/uLNormal0.1-1.0The [facility] LimaComment on above:Order Comment: No: Do not add to previous drawPerformed By: #### 36108, 92626, 55312, 12054, 92490, 28523 #### [facility] [address] [place] [address], USAMONOS5.5 %Normal5.0-12.0The [facility] LimaComment on above:Order Comment: No: Do not add to previous drawPerformed By: #### 56133, 56577, 56969, 73271, 13762, 55019 #### [facility] [address] [facility] [place] [address], USANeutrophils/100 WBC (Bld)72.4 %High40.0-72.0The [facility] LimaComment on above:Order Comment: No: Do not add to previous drawPerformed By: #### 36623, 91992, 97080, 25405, 94777, 81813 #### [facility] [address] [facility] [place] [address], USANucleated RBC/100 WBC (Bld) [Ratio]0 %Normal0-0The [facility] LimaComment on above:Order Comment: No: Do not add to previous drawPerformed By: #### 22459, 82610, 90251, 74576, 93753, 22677 #### [facility] [address] [facility] [place] [address], USAPLAT VHT075 10*3/kOLbuaii785-487Hyg [facility] LimaComment on above:Order Comment: No: Do not add to previous draw Performed By: #### 71744, 50348, 16346, 90424, 07142, 48130 #### [facility] [address] [place] [address], USARBC (Bld) [#/Vol]4.93 10*6/uLNormal3.80-5.00The [facility] LimaComment on above:Order Comment: No: Do not add to previous drawPerformed By: #### 28559, 31705, 30873, 04463, 95318, 14786 #### [facility] [address] [place] [address], USAWBC (Bld) [#/Vol]6.17 10*3/uLNormal4.00-10.60The [facility] LimaComment on above:Order Comment: No: Do not add to previous drawPerformed By: #### 64944, 10838, 45857, 29298, 81793, 28686 #### [facility] [address] [facility] [address], USAMAGNESIUM BLOODon 14-34-0254Rtdsekxtw [Mass/Vol]2.0 mg/dL Normal1.9-2.7The [facility] LimaComment on above:Order Comment: No: Do not add to previous drawPerformed By: #### 66029, 25973, 55580, 91304, 69767, 54358 #### [facility] [address] [facility] [address], USAPHOSPHORUS BLOODon 16-45-2570Tezjobado [Mass/Vol]3.1 mg/dL Normal2.5-5.0The [facility] LimaComment on above:Order Comment: No: Do not add to previous drawPerformed By: #### 04704, 37932, 58240, 57238, 44005, 84429 #### [facility] [address] [facility] [address], USAPOC GLUCOSE LABon 58-33-2852Lajclqi [Mass/Vol]134 mg/dLHigh 70-100The [facility] LimaComment on above:Performed By: #### 91000, 02856, 56817, 43106, 16981, 49688 #### [facility] [address] [place] [address], USAUFH HEPARIN ASSAYon 06-55-2421WEKRAAAASHOHSV HEPARIN0.91 IU/mLCritically high0.30-0.70The [facility] LimaComment on above:Result Comment: Rivaroxaban and Apixaban will interfere with the anti Xa assay used to monitor UFH and LMWH. RESULTS CHECKED AND CALLED. ACCURATELY READ BACK BY LYNN POLANCO, RN @ 1459Performed By: #### 24369, 13307, 13211, 25807, 71182, 52854 #### [facility] [address] [facility] [address], USAALBUMIN BLOODon 95-92-6646Vwrymtl [Mass/Vol]3.0 g/dLLow 3.5-5.7The [facility] LimaComment on above:Performed By: #### 31200, 02211, 98097, 80229, 78722, 99719 #### [facility] [address] [facility] [place] [address], USABASIC METABOLIC PANELon 69-63-8702Firrbpq [Mass/Vol]8.1 mg/dLLow8.6-10.3The [facility] LimaComment on above:Order Comment: No: Do not add to previous drawPerformed By: #### 66530, 56607, 77427, 22019, 25627, 75236 #### [facility] [address] [facility] [place] [address], USAChloride [Moles/Vol]105 mmol/ITbrukn56-983Bmj [facility] LimaComment on above:Order Comment: No: Do not add to previous drawPerformed By: #### 73280, 15114, 15186, 56279, 86973, 54661 #### [facility] [address] [facility] [place] [address], USACO2 [Moles/Vol]26 mmol/FRpnoho49-14Ozn [facility] LimaComment on above:Order Comment: No: Do not add to previous draw Performed By: #### 26483, 87994, 80802, 92875, 64944, 28763 #### [facility] [address] [place] [address], USACreatinine [Mass/Vol]0.65 mg/dLNormal0.60-1.20The [facility] LimaComment on above:Order Comment: No: Do not add to previous drawPerformed By: #### 16003, 56345, 77119, 68906, 56681, 10107 #### [facility] [address] [place] [address], USAGFR/1.73 sq M predicted among blacks MDRD (S/P/Bld) [Vol rate/Area]mL/min/{1.73_m2}Normal>60The [facility] Comment on above:Order Comment: No: Do not add to previous drawPerformed By: #### 10253, 63914, 46354, 75955, 49276, 85586 #### [facility] [address] [place] [address], USAGFR/1.73 sq M predicted among non-blacks MDRD (S/P/Bld) [Vol rate/Area]mL/min/{1.73_m2}Normal>60The [facility] Comment on above:Order Comment: No: Do not add to previous drawPerformed By: #### 08453, 03941, 29475, 13134, 14607, 06548 #### [facility] [address] [place] [address], USAGlucose [Mass/Vol]87 mg/kHEmqfho70-961Dsa [facility] LimaComment on above:Order Comment: No: Do not add to previous drawPerformed By: #### 70767, 54658, 47576, 50881, 37774, 57746 #### [facility] [address] [place] [address], USAPotassium [Moles/Vol]4.3 mmol/LNormal3.5-5.1The [facility] LimaComment on above:Order Comment: No: Do not add to previous drawPerformed By: #### 05498, 61971, 39399, 78406, 51059, 00964 #### [facility] [address] [facility] [place] [address], USASodium [Moles/Vol]136 mmol/PAgatam871-247Irc [facility] LimaComment on above:Order Comment: No: Do not add to previous drawPerformed By: #### 31419, 21040, 01121, 75131, 07263, 60360 #### [facility] [address] [facility] [place] [address], USAUrea nitrogen [Mass/Vol]8 mg/dLNormal7-25The [facility] LimaComment on above:Order Comment: No: Do not add to previous drawPerformed By: #### 24351, 97965, 15773, 45383, 16922, 71236 #### [facility] [address] [facility] [address], [facility]ITALCBC W/DIFFon [id number] BASOPHILS0.0 10*3/uLNormal 0.0-0.2The [facility] LimaComment on above:Order Comment: No: Do not add to previous drawPerformed By: #### 76929, 90862, 11029, 98263, 91401, 90453 #### [facility] [address] [facility] [address], USAABS IMM GRANS0.0 10*3/uLNormal0.0-0.2The [facility] LimaComment on above:Order Comment: No: Do not add to previous drawPerformed By: #### 71948, 10545, 22914, 40925, 44279, 67653 #### [facility] [address] [facility] [place] [address], [facility] HOSPITALABS NEUTROPHILS3.4 10*3/uLNormal1.6-7.6The [facility] LimaComment on above:Order Comment: No: Do not add to previous drawPerformed By: #### 79000, 53432, 69161, 96791, 71228, 48250 #### [facility] [address] [place] [address], USABasophils/100 WBC (Bld)0.2 %Normal0.0-1.0The [facility] LimaComment on above:Order Comment: No: Do not add to previous drawPerformed By: #### 99562, 50179, 44784, 70948, 81657, 81959 #### [facility] [address] [place] [address], [facility] HOSPITALEosinophils (Bld) [#/Vol]0.1 10*3/uLNormal0.0-0.5The [facility] LimaComment on above:Order Comment: No: Do not add to previous drawPerformed By: #### 97793, 92970, 40872, 02855, 06486, 28384 #### [facility] [address] [facility] [address], USAEosinophils/100 WBC (Bld)2.6 %Normal0.0-6.0The [facility] LimaComment on above:Order Comment: No: Do not add to previous drawPerformed By: #### 33098, 09186, 75221, 04217, 60500, 10624 #### [facility] [address] [facility] [place] [address], USAErythrocyte distribution width (RBC) [Ratio]13.0 %Normal 11.5-15.0The [facility] Hospital LimaComment on above:Order Comment: No: Do not add to previous drawPerformed By: #### 34222, 32885, 03511, 12173, 91380, 63286 #### [facility] [address] [address], USAHematocrit (Bld) [Volume fraction]40.9 %Fmcklh36.0-45.0The [facility] Hospital LimaComment on above:Order Comment: No: Do not add to previous drawPerformed By: #### 80071, 40192, 06639, 15280, 33246, 39039 #### [facility] [address] [place] [address], USAHemoglobin (Bld) [Mass/Vol]12.8 g/jHYjjeqk20.0-15.0The [facility] LimaComment on above:Order Comment: No: Do not add to previous drawPerformed By: #### 30662, 43957, 99848, 40827, 03631, 81020 #### [facility] [address] [place] [address], USAIMMATURE GRANS0.6 %Normal0.0-1.0The [facility] LimaComment on above:Order Comment: No: Do not add to previous draw Performed By: #### 90930, 53927, 97787, 47860, 93089, 22553 #### [facility] [address] [place] [address], USALymphocytes (Bld) [#/Vol]1.2 10*3/uLNormal1.2-4.0The [facility] LimaComment on above:Order Comment: No: Do not add to previous drawPerformed By: #### 35313, 47319, 38102, 64245, 63662, 10989 #### [facility] [address] [place] [address], USALymphocytes/100 WBC (Bld)23.7 %Hwavod09.0-45.0The [facility] LimaComment on above:Order Comment: No: Do not add to previous drawPerformed By: #### 98029, 79916, 05645, 39827, 16454, 65305 #### [facility] [address] [place] [address], USAMCH (RBC) [Entitic mass]27.4 ngZgfgub17.0-33.0The [facility] LimaComment on above:Order Comment: No: Do not add to previous drawPerformed By: #### 91623, 69444, 25092, 94425, 12938, 18327 #### [facility] [address] [place] [address], [facility] HOSPITALMCHC (RBC) [Mass/Vol]31.3 g/dLLow32.0-35.0The [facility] LimaComment on above:Order Comment: No: Do not add to previous drawPerformed By: #### 00835, 59872, 79489, 77699, 22312, 46528 #### [facility] [address] [place] [address], [facility] HOSPITALMCV (RBC) [Entitic vol]87.6 bUPsvokh53.0-98.0The [facility] LimaComment on above:Order Comment: No: Do not add to previous drawPerformed By: #### 11973, 87602, 81627, 78870, 30177, 63723 #### [facility] [address] [place] [address], USAMonocytes (Bld) [#/Vol]0.3 10*3/uLNormal0.1-1.0The [facility] LimaComment on above:Order Comment: No: Do not add to previous drawPerformed By: #### 45939, 52739, 71586, 89695, 59062, 02314 #### [facility] [address] [place] [address], USAMONOS5.4 %Normal5.0-12.0The [facility] LimaComment on above:Order Comment: No: Do not add to previous drawPerformed By: #### 97114, 93988, 34397, 42047, 24709, 08748 #### [facility] [address] [place] [address], USANeutrophils/100 WBC (Bld)67.5 %Ljkhdi05.0-72.0The [facility] LimaComment on above:Order Comment: No: Do not add to previous drawPerformed By: #### 24711, 09408, 26593, 06076, 16986, 59061 #### [facility] [address] [place] [address], USANucleated RBC/100 WBC (Bld) [Ratio]0 %Normal0-0The [facility] Hospital LimaComment on above:Order Comment: No: Do not add to previous drawPerformed By: #### 41857, 51248, 65023, 55996, 23491, 31266 #### [facility] [address] [facility] [place] [address], USAPLAT UJP213 10*3/uSAmvzkm973-831Esr [facility] LimaComment on above:Order Comment: No: Do not add to previous draw Performed By: #### 43778, 63039, 37809, 52741, 86271, 61290 #### [facility] [address] [facility] [place] [address], USARBC (Bld) [#/Vol]4.67 10*6/uLNormal3.80-5.00The [facility] LimaComment on above:Order Comment: No: Do not add to previous drawPerformed By: #### 53781, 87797, 73085, 99918, 52712, 80305 #### [facility] [address] [facility] [place] [address], USAWBC (Bld) [#/Vol]4.98 10*3/uLNormal4.00-10.60The [facility] LimaComment on above:Order Comment: No: Do not add to previous drawPerformed By: #### 11407, 94370, 18413, 60937, 53259, 65150 #### [facility] [address] [place] [address], USACHEST AND LATERAL [id number] AND [facility] Department of Radiology [address] [place] [id number] Patient Name: EMIGDIO APODACA : 1965 Sex: F Age: Race: White Pt. Location: [id number] Patient Status: I Ordered Date: 04/01/2020 7:00:00 [...] reports Electronically signed: Shari Salcedo. Transcribed by: [email or web address], User Resident: ANNE VEGA Electronically Signed by: SHARI SALCEDO @ 04/01/2020 10:12 AM I personally read this/these film(s) with this residentGuernsey Memorial HospitalComment on above:Order Comment: No: Do not add to previous drawMAGNESIUM BLOODon 84-02-2950Htgwcamri [Mass/Vol]2.1 mg/dLNormal1.9-2.7The [facility] Hospital LimaComment on above:Order Comment: No: Do not add to previous drawPerformed By: #### 66182, 98277, 45044, 35406, 87866, 23903 #### [facility] [address] [place] [address], [facility] HOSPITALAPTAurora East Hospital 53-90-5579sNGP Coag (Bld) [Time]28.3 sNormal 25.0-35.0The [facility] LimaComment on above:Order Comment: No: Do not add to previous drawResult Comment: ALL RESULTS MUST BE INTERPRETED WITH RESPECT TO BLOOD DRAWING ARTIFACT OR DILUTION ERROR OF ANTICOAGULANT AT THE TIME OF SAMPLING. THE APTT SHOULD NOT BE USED TO MONITOR UNFRACTIONATED HEPARIN THERAPY, THIS LABORATORY NO LONGER HAS AN ESTABLISHED THERAPEUTIC RANGE BASED ON THE APTT. IT IS RECOMMENDED THAT THE UFH - HEPARIN ASSAY (ANTI-XA ACTIVITY) BE USED FOR THIS PURPOSE.Performed By: #### 02051, 83276, 63980, 97365, 03468, 62696 #### [facility] [address] [place] [address], [facility] HOSPITALBASI METABOLIC PANELon 36-67-4663Zzbdtth [Mass/Vol]7.8 mg/dLLow8.6-10.3The [facility] LimaComment on above:Order Comment: No: Do not add to previous drawPerformed By: #### 62130, 93323, 17294, 83493, 17182, 62230 #### [facility] [address] [place] [address], USAChloride [Moles/Vol]108 mmol/HPbxc77-214Elb [facility] LimaComment on above:Order Comment: No: Do not add to previous drawPerformed By: #### 11162, 72442, 88694, 76558, 48092, 05165 #### [facility] [address] [place] [address], USACO2 [Moles/Vol]26 mmol/PVserdk43-16Djh [facility] LimaComment on above:Order Comment: No: Do not add to previous draw Performed By: #### 08648, 72852, 94482, 45069, 29534, 74255 #### [facility] [address] [place] [address], USACreatinine [Mass/Vol]0.76 mg/dLNormal0.60-1.20The [facility] LimaComment on above:Order Comment: No: Do not add to previous drawPerformed By: #### 49834, 47689, 22062, 26582, 79019, 18146 #### [facility] [address] [place] [address], USAGFR/1.73 sq M predicted among blacks MDRD (S/P/Bld) [Vol rate/Area]mL/min/{1.73_m2}Normal>60The [facility] Comment on above:Order Comment: No: Do not add to previous drawPerformed By: #### 45590, 08132, 87142, 39365, 73970, 10627 #### [facility] [address] [place] [address], USAGFR/1.73 sq M predicted among non-blacks MDRD (S/P/Bld) [Vol rate/Area]mL/min/{1.73_m2}Normal>60The [facility] Comment on above:Order Comment: No: Do not add to previous drawPerformed By: #### 22398, 48034, 84890, 81289, 06920, 54053 #### [facility] [address] [place] [address], USAGlucose [Mass/Vol]97 mg/uMXjsmrg48-784Nmf [facility] LimaComment on above:Order Comment: No: Do not add to previous drawPerformed By: #### 01392, 84533, 23885, 37614, 21354, 54454 #### [facility] [address] [place] [address], USAPotassium [Moles/Vol]3.2 mmol/LLow3.5-5.1The [facility] LimaComment on above:Order Comment: No: Do not add to previous drawPerformed By: #### 18943, 91959, 91978, 29855, 87167, 77879 #### [facility] [address] [place] [address], USASodium [Moles/Vol]140 mmol/PAwssnu343-810Mhi [facility] LimaComment on above:Order Comment: No: Do not add to previous drawPerformed By: #### 25656, 17240, 83222, 70112, 35167, 45177 #### [facility] [address] [facility] [place] [address], USAUrea nitrogen [Mass/Vol]15 mg/dLNormal7-25The [facility] LimaComment on above:Order Comment: No: Do not add to previous drawPerformed By: #### 39971, 41753, 83804, 96294, 97104, 26484 #### [facility] [address] [facility] [place] [address], [facility] HOSPITALCBC W/DIFFon [id number] BASOPHILS0.0 10*3/uLNormal 0.0-0.2The [facility] LimaComment on above:Order Comment: No: Do not add to previous drawPerformed By: #### 20579, 13048, 54769, 41516, 56760, 91173 #### [facility] [address] [facility] [address], USAABS IMM GRANS0.0 10*3/uLNormal0.0-0.2The [facility] LimaComment on above:Order Comment: No: Do not add to previous drawPerformed By: #### 23717, 92000, 38379, 66580, 18444, 01170 #### [facility] [address] [facility] [place] [address], USAABS NEUTROPHILS3.2 10*3/uLNormal1.6-7.6The [facility] LimaComment on above:Order Comment: No: Do not add to previous drawPerformed By: #### 18194, 44675, 85722, 38576, 70284, 39783 #### [facility] [address] [facility] [place] [address], USABasophils/100 WBC (Bld)0.2 %Normal0.0-1.0The [facility] LimaComment on above:Order Comment: No: Do not add to previous drawPerformed By: #### 28320, 97565, 71582, 22658, 66401, 09435 #### [facility] [address] [facility] [place] [address], USAEosinophils (Bld) [#/Vol]0.0 10*3/uLNormal0.0-0.5The [facility] LimaComment on above:Order Comment: No: Do not add to previous drawPerformed By: #### 57256, 45266, 44380, 90301, 06741, 05961 #### [facility] [address] [facility] [place] [address], USAEosinophils/100 WBC (Bld)0.4 %Normal0.0-6.0The [facility] LimaComment on above:Order Comment: No: Do not add to previous drawPerformed By: #### 58340, 73552, 96031, 35307, 28491, 02073 #### [facility] [address] [place] [address], USAErythrocyte distribution width (RBC) [Ratio]13.0 %Normal 11.5-15.0The [facility] LimaComment on above:Order Comment: No: Do not add to previous drawPerformed By: #### 98993, 75689, 71656, 85908, 92709, 89079 #### [facility] [address] [place] [address], USAHematocrit (Bld) [Volume fraction]34.4 %Low36.0-45.0The [facility] LimaComment on above:Order Comment: No: Do not add to previous drawPerformed By: #### 96503, 47506, 56699, 79714, 71240, 12048 #### [facility] [address] [facility] [place] [address], USAHemoglobin (Bld) [Mass/Vol]10.8 g/dLLow12.0-15.0The [facility] LimaComment on above:Order Comment: No: Do not add to previous drawPerformed By: #### 98376, 10357, 69557, 66309, 19755, 27242 #### [facility] [address] [facility] [place] [address], USAIMMATURE GRANS0.4 %Normal0.0-1.0The [facility] LimaComment on above:Order Comment: No: Do not add to previous draw Performed By: #### 05141, 60550, 55917, 40407, 57417, 16862 #### [facility] [address] [place] [address], USALymphocytes (Bld) [#/Vol]1.2 10*3/uLNormal1.2-4.0The [facility] LimaComment on above:Order Comment: No: Do not add to previous drawPerformed By: #### 52928, 01060, 03681, 46217, 34756, 04857 #### [facility] [address] [place] [address], USALymphocytes/100 WBC (Bld)25.7 %Xekxxi23.0-45.0The [facility] LimaComment on above:Order Comment: No: Do not add to previous drawPerformed By: #### 95471, 79372, 15149, 85712, 08635, 15881 #### [facility] [address] [place] [address], [facility]ONH (RBC) [Entitic mass]27.5 luShrimp24.0-33.0The [facility] LimaComment on above:Order Comment: No: Do not add to previous drawPerformed By: #### 34347, 91066, 75824, 17018, 03487, 63693 #### [facility] [address] [place] [address], [facility] LAWTONHC (RBC) [Mass/Vol]31.4 g/dLLow32.0-35.0The [facility] LimaComment on above:Order Comment: No: Do not add to previous drawPerformed By: #### 78768, 06999, 66391, 81412, 03636, 54007 #### [facility] [address] [place] [address], [facility] LAWTONV (RBC) [Entitic vol]87.5 uCNweobs06.0-98.0The [facility] LimaComment on above:Order Comment: No: Do not add to previous drawPerformed By: #### 90506, 66335, 31130, 86127, 15960, 75024 #### [facility] [address] [place] [address], [facility] HOSPITALMonocytes (Bld) [#/Vol]0.3 10*3/uLNormal0.1-1.0The [facility] LimaComment on above:Order Comment: No: Do not add to previous drawPerformed By: #### 52129, 55556, 83193, 41158, 89915, 28315 #### [facility] [address] [place] [address], USAMONOS6.2 %Normal5.0-12.0The [facility] LimaComment on above:Order Comment: No: Do not add to previous drawPerformed By: #### 31003, 61307, 92526, 93633, 50220, 65382 #### [facility] [address] [place] [address], USANeutrophils/100 WBC (Bld)67.1 %Kcpbpy87.0-72.0The [facility] LimaComment on above:Order Comment: No: Do not add to previous drawPerformed By: #### 44187, 82501, 47148, 76010, 97266, 91500 #### [facility] [address] [place] [address], USANucleated RBC/100 WBC (Bld) [Ratio]0 %Normal0-0The [facility] LimaComment on above:Order Comment: No: Do not add to previous drawPerformed By: #### 66219, 92967, 54852, 57522, 51377, 85898 #### [facility] [address] [place] [address], USAPLAT TIX529 10*3/aFCzuurx147-909Wut [facility] LimaComment on above:Order Comment: No: Do not add to previous draw Performed By: #### 41699, 51493, 83554, 43897, 27873, 73156 #### [facility] [address] [place] [address], USARBC (Bld) [#/Vol]3.93 10*6/uLNormal3.80-5.00The [facility] LimaComment on above:Order Comment: No: Do not add to previous drawPerformed By: #### 70716, 07655, 23709, 92685, 72155, 73749 #### [facility] [address] [place] [address], USAWBC (Bld) [#/Vol]4.71 10*3/uLNormal4.00-10.60The [facility] LimaComment on above:Order Comment: No: Do not add to previous drawPerformed By: #### 37968, 73699, 86669, 24759, 27526, 49622 #### [facility] [address] [place] [address], USACardiovascular Lab Reporton [id number] Lab ReportUnFairfield Medical Center Patient Name: Paulie [facility] S MR #: [id number] Department of Physician: Rebecca Weaver M.D. Medicine Service Date: 03/31/2020 Division of Birthdate: 1965 Cardiology Room #: 3AB [id number] Adult Cardiovascular Services [place] [address] Cardiovascular Laboratory Report INDICATIONS FOR PACEMAKER PLACEMENT: [...] Weaver M.D. Date Trans: 03/31/2020 03:35 P/jamal DN_JN:[id number] cc: Luis Armando Hines M.D. Heart Failure/ Transplant Mailstop [address] [facility] [address]QsifceNasGeorgetown Behavioral HospitalMAGNESIUM BLOODon 17-13-5172Rvpbaosys [Mass/Vol]1.8 mg/dLLow1.9-2.7The [facility] LimaComment on above:Order Comment: No: Do not add to previous draw Performed By: #### 56388, 07304, 07618, 67948, 58597, 81270 #### [facility] [address] [facility] [place] [address], [facility] GENERAL HOSPITALPHOSPHORUS BLOODon 20-13-3405Kerhhlcbi [Mass/Vol]2.7 mg/dL Normal2.5-5.0The [facility] LimaComment on above:Order Comment: No: Do not add to previous drawPerformed By: #### 80767, 41708, 59086, 39313, 89276, 84451 #### [facility] [address] [facility] [place] [address], [facility] HOSPITALPROTHROMBIN TIMEon [id number] Coag (PPP) [Relative time] 1.11 {INR}Normal0.91-1.16The [facility] LimaComment on above:Order Comment: No: Do not add to previous drawResult Comment: ACCCP RECOMMENDED INR FOR WARFARIN THERAPY ------- CONDITION INR PROPHYLAXIS OF VENOUS THROMBOSIS 2-3 (HIGH-RISK SURGERY) TREATMENT OF VENOUS THROMBOSIS 2-3 TREATMENT OF PULMONARY EMBOLISM 2-3 PREVENTION OF SYSTEMIC EMBOLISM: 2-3 ACUTE MYOCARDIAL INFARCTION TISSUE HEART VALVES VALVULAR HEART DISEASE ATRIAL FIBRILLATION RECURRENT SYSTEMIC EMBOLISM MECHANICAL HEART VALVE 2.5-3.5 FROM: ORAL ANTICOAGULANTS. MECHANISM OF ACTION, CLINICAL EFFECTIVENESS, AND OPTIMAL THERAPEUTIC RANGE. CHEST 1995;108:231S-246S.Performed By: #### 37573, 54042, 31992, 13578, 98131, 80115 #### [facility] [address] [facility] [place] [address], [facility] GENERAL HOSPITALPT Coag (PPP) [Time]14.3 yVeafhe51.3-14.8The [facility] LimaComment on above:Order Comment: No: Do not add to previous drawResult Comment: ALL RESULTS MUST BE INTERPRETED WITH RESPECT TO BLOOD DRAWING ARTIFACT OR DILUTION ERROR OF ANTICOAGULANT AT THE TIME OF SAMPLING.Performed By: #### 76999, 22491, 03362, 26017, 89570, 50866 #### [facility] [address] [facility] [place] [address], [facility]*SARS-CoV-2 COVID-19on [id number]-COVID-19Not Detected NormalNot DetectedThe [facility] LimaComment on above:Order Comment: No: Do not add to previous drawPerformed By: #### 57413, 24962, 68598, 56904, 88635, 69773 #### [facility] [address] [facility] [place] [address], [facility]AL HOSPITALAPTTon [id number] Coag (Bld) [Time]24.9 sLow25.0-35.0 The [facility] Hospital LimaComment on above:Order Comment: No: Do not add to previous drawResult Comment: ALL RESULTS MUST BE INTERPRETED WITH RESPECT TO BLOOD DRAWING ARTIFACT OR DILUTION ERROR OF ANTICOAGULANT AT THE TIME OF SAMPLING. THE APTT SHOULD NOT BE USED TO MONITOR UNFRACTIONATED HEPARIN THERAPY, THIS LABORATORY NO LONGER HAS AN ESTABLISHED THERAPEUTIC RANGE BASED ON THE APTT. IT IS RECOMMENDED THAT THE UFH - HEPARIN ASSAY (ANTI-XA ACTIVITY) BE USED FOR THIS PURPOSE.Performed By: #### 32100, 33274 #### [facility] [address] [facility] [place] [place] [address], [facility] HOSPITALBASIC METABOLIC PANELon [id number] [Mass/Vol]8.9 mg/dLNormal8.6-10.3The [facility] LimaComment on above:Order Comment: No: Do not add to previous drawPerformed By: #### 02820, 78750, 82721, 43882, 11828, 45244 #### [facility] [address] [place] [address], USAChloride [Moles/Vol]110 mmol/RGfpg62-153Dzl [facility] LimaComment on above:Order Comment: No: Do not add to previous drawPerformed By: #### 50407, 77826, 41160, 30169, 43496, 14896 #### [facility] [address] [place] [address], USACO2 [Moles/Vol]26 mmol/AHkpdtp91-24Fxi [facility] LimaComment on above:Order Comment: No: Do not add to previous draw Performed By: #### 76339, 53279, 96393, 76519, 67877, 95780 #### [facility] [address] [place] [address], USACreatinine [Mass/Vol]0.86 mg/dLNormal0.60-1.20The [facility] LimaComment on above:Order Comment: No: Do not add to previous drawPerformed By: #### 97528, 83289, 56554, 05771, 93946, 36294 #### [facility] [address] [place] [address], USAGFR/1.73 sq M predicted among blacks MDRD (S/P/Bld) [Vol rate/Area]mL/min/{1.73_m2}Normal>60The [facility] Comment on above:Order Comment: No: Do not add to previous drawPerformed By: #### 40622, 92637, 52091, 61909, 16898, 24157 #### [facility] [address] [place] [address], USAGFR/1.73 sq M predicted among non-blacks MDRD (S/P/Bld) [Vol rate/Area]mL/min/{1.73_m2}Normal>60The [facility] Comment on above:Order Comment: No: Do not add to previous drawPerformed By: #### 86858, 80365, 19661, 63771, 27749, 10129 #### [facility] [address] [place] [address], USAGlucose [Mass/Vol]119 mg/rXScje45-539Xwc [facility] LimaComment on above:Order Comment: No: Do not add to previous drawPerformed By: #### 70475, 65428, 84519, 59077, 05202, 38373 #### [facility] [address] [place] [address], USAPotassium [Moles/Vol]3.5 mmol/LNormal3.5-5.1The [facility] LimaComment on above:Order Comment: No: Do not add to previous drawPerformed By: #### 23142, 73044, 55689, 91262, 05126, 80871 #### [facility] [address] [facility] [place] [address], USASodium [Moles/Vol]142 mmol/EMfaevz540-742Fbu [facility] LimaComment on above:Order Comment: No: Do not add to previous drawPerformed By: #### 61912, 55116, 68993, 25569, 42100, 17253 #### [facility] [address] [facility] [place] [address], USAUrea nitrogen [Mass/Vol]13 mg/dLNormal7-25The [facility] LimaComment on above:Order Comment: No: Do not add to previous drawPerformed By: #### 23339, 29906, 77381, 64285, 72238, 93372 #### [facility] [address] [facility] [place] [address], [facility]ITALCB W/DIFFon [id number] BASOPHILS0.0 10*3/uLNormal 0.0-0.2The [facility] LimaComment on above:Performed By: #### [id number] #### [facility] [address] [facility] [place] [address], [facility] HOSPITALABS IMM GRANS0.0 10*3/uLNormal0.0-0.2The [facility] LimaComment on above:Performed By: #### [id number] #### [facility] [address] [facility] [place] [address], [place]AABS NEUTROPHILS5.7 10*3/uLNormal1.6-7.6The [facility] LimaComment on above:Performed By: #### [id number] #### [facility] [address] [facility] [place] [address], USABasophils/100 WBC (Bld)0.0 %Normal0.0-1.0The [facility] LimaComment on above:Performed By: #### [id number] #### [facility] [address] [facility] [place] [address], USAEosinophils (Bld) [#/Vol]0.0 10*3/uLNormal0.0-0.5The [facility] LimaComment on above:Performed By: #### [id number] #### [facility] [address] [facility] [place] [address], USAEosinophils/100 WBC (Bld)0.0 %Normal0.0-6.0The [facility] LimaComment on above:Performed By: #### [id number] #### [facility] [address] [facility] [place] [address], USAErythrocyte distribution width (RBC) [Ratio]12.9 %Normal 11.5-15.0The [facility] LimaComment on above:Performed By: #### [id number] #### [facility] [address] [facility] [place] [address], USAHematocrit (Bld) [Volume fraction]36.1 %Micgur63.0-45.0The [facility] LimaComment on above:Performed By: #### [id number] #### [facility] [address] [facility] [place] [address], USAHemoglobin (Bld) [Mass/Vol]11.5 g/dLLow12.0-15.0The [facility] LimaComment on above:Performed By: #### [id number] #### [facility] [address] [facility] [place] [id number], USAIMMATURE GRANS0.5 %Normal0.0-1.0The [facility] LimaComment on above:Performed By: #### [id number] #### [facility] [address] [facility] [place] [place] [address], USALymphocytes (Bld) [#/Vol]0.6 10*3/uLLow1.2-4.0The SCCI Hospital LimaComment on above:Performed By: #### [id number] #### [facility] [address] [facility] [place] [place] [address], [facility] HOSPITALLymphocytes/100 WBC (Bld)9.3 %Low20.0-45.0The [facility] Hospital LimaComment on above:Performed By: #### [id number] #### [facility] [address] [facility] [place] [address], [facility] HOSPITALMCH (RBC) [Entitic mass]27.4 uhHkuhyx95.0-33.0The [facility] Hospital LimaComment on above:Performed By: #### 27143 #### [facility] [address] [facility] [place] [address], [facility] HOSPITALMCHC (RBC) [Mass/Vol]31.9 g/dLLow32.0-35.0The [facility] Hospital LimaComment on above:Performed By: #### 07518 #### [facility] [address] [facility] [place] [address], [facility] HOSPITALMCV (RBC) [Entitic vol]86.0 eNKetlmq47.0-98.0The [facility] Hospital LimaComment on above:Performed By: #### 86050 #### [facility] [address] [facility] [address], USAMonocytes (Bld) [#/Vol]0.2 10*3/uLNormal0.1-1.0The [facility] Hospital LimaComment on above:Performed By: #### 71003 #### [facility] [address] [place] [address], USAMONOS2.5 %Low5.0-12.0The [facility] Hospital LimaComment on above:Performed By: #### 39326 #### [facility] [address] [place] [address], USANeutrophils/100 WBC (Bld)87.7 %High40.0-72.0The [facility] Hospital LimaComment on above:Performed By: #### 03539 #### [facility] [address] [place] [address], USANucleated RBC/100 WBC (Bld) [Ratio]0 %Normal0-0The [facility] Hospital LimaComment on above:Performed By: #### 75504 #### [facility] [address] [place] [address], USAPLAT ZFV618 10*3/tIKrimug094-867Ipy [facility] Hospital LimaComment on above:Performed By: #### 17859 #### [facility] [address] [place] [address], USARBC (Bld) [#/Vol]4.20 10*6/uLNormal3.80-5.00The [facility] Hospital LimaComment on above:Performed By: #### 82692 #### [facility] [address] [place] [address], USAWBC (Bld) [#/Vol]6.47 10*3/uLNormal4.00-10.60The [facility] Hospital LimaComment on above:Performed By: #### 13727 #### [facility] [address] [place] [address], USAFREE T4on 45-46-1785Tlbk T4 [Mass/Vol]1.48 ng/dLNormal 0.71-1.85The [facility] Hospital LimaComment on above:Performed By: #### 20555, 03807, 03666, 12484, 14528, 42202 #### [facility] [address] [place] [address], USAMAGNESIUM BLOODon 23-08-1763Ichvcwyvm [Mass/Vol]2.0 mg/dL Normal1.9-2.7The [facility] Hospital LimaComment on above:Order Comment: No: Do not add to previous drawPerformed By: #### 94208, 68378, 06894, 17046, 89044, 86868 #### [facility] [address] [address], USAPHOSPHORUS BLOODon 29-70-2355Tehnrcojn [Mass/Vol]2.8 mg/dL Normal2.5-5.0The [facility] Hospital LimaComment on above:Order Comment: No: Do not add to previous drawPerformed By: #### 33415, 27935, 42959, 91067, 50731, 88761 #### [facility] [address] [address], USAPROTHROMBIN TIMEon 75-46-2806KGE Coag (PPP) [Relative time] 1.21 {INR}High0.91-1.16The [facility] Hospital LimaComment on above: Order Comment: No: Do not add to previous drawResult Comment: ACCCP RECOMMENDED INR FOR WARFARIN THERAPY ------- CONDITION INR PROPHYLAXIS OF VENOUS THROMBOSIS 2-3 (HIGH-RISK SURGERY) TREATMENT OF VENOUS THROMBOSIS 2-3 TREATMENT OF PULMONARY EMBOLISM 2-3 PREVENTION OF SYSTEMIC EMBOLISM: 2-3 ACUTE MYOCARDIAL INFARCTION TISSUE HEART VALVES VALVULAR HEART DISEASE ATRIAL FIBRILLATION RECURRENT SYSTEMIC EMBOLISM MECHANICAL HEART VALVE 2.5-3.5 FROM: ORAL ANTICOAGULANTS. MECHANISM OF ACTION, CLINICAL EFFECTIVENESS, AND OPTIMAL THERAPEUTIC RANGE. CHEST 1995;108:231S-246S.Performed By: #### 25513, 57759 #### [facility] [address] [address], USAPT Coag (PPP) [Time]15.4 sHigh12.3-14.8The [facility] Hospital LimaComment on above:Order Comment: No: Do not add to previous drawResult Comment: ALL RESULTS MUST BE INTERPRETED WITH RESPECT TO BLOOD DRAWING ARTIFACT OR DILUTION ERROR OF ANTICOAGULANT AT THE TIME OF SAMPLING.Performed By: #### 57448, 89936 #### [facility] [address] [place] [address], USATROPONIN-Ion 75-35-7589Btfcghpt I.cardiac [Mass/Vol]0.02 ng/mLNormal0.00-0.04The [facility] Hospital LimaComment on above: Order Comment: No: Do not add to previous drawResult Comment: REFERENCE RANGES: 0.00 - 0.04 ng/ml NORMAL 0.05 - 0.50 ng/ml INDETERMINATE > 0.50 ng/ml CONSISTENT WITH AN M.I.Performed By: #### 77118, 72787, 02383, 66426, 30864, 85989 #### [facility] [address] [facility] [place] [address], USATroponin I.cardiac [Mass/Vol]0.04 ng/mLNormal0.00-0.04The [facility] Hospital LimaComment on above:Order Comment: No: Do not add to previous drawResult Comment: REFERENCE RANGES: 0.00 - 0.04 ng/ml NORMAL 0.05 - 0.50 ng/ml INDETERMINATE > 0.50 ng/ml CONSISTENT WITH AN M.I.Performed By: #### 86183 #### [facility] [address] [place] [address], USATroponin I.cardiac [Mass/Vol]0.04 ng/mLNormal0.00-0.04The [facility] Hospital LimaComment on above:Order Comment: No: Do not add to previous drawResult Comment: REFERENCE RANGES: 0.00 - 0.04 ng/ml NORMAL 0.05 - 0.50 ng/ml INDETERMINATE > 0.50 ng/ml CONSISTENT WITH AN M.I.Performed By: #### 65788, 73005, 96225, 23218, 15083, 09128 #### [facility] [address] [place] [address], USATSH3 WITH REFLEX FT4on 87-93-9912LHL 3RD GENERATION0.02 uIU/mLLow0.34-5.60The [facility] LimaComment on above: Performed By: #### 46359, 94299, 82387, 74676, 00910, 05642 #### [facility] [address] [facility] [place] [address], [facility] Vital Signs Date TimeVital SignValuePerforming NqkihyfabWqzzinmk43-08-4371 14:00-0400Body .4 cmGrant Carter BUILDING CONSTRUCTION FOREMAN Work Phone: [phone]-[facility] HospitalcoconeHermann Area District HospitalOkmdvcxmif38-53-7386 14:00-0400Body mass index (BMI) [Ratio]19.14 kg/i6Islpe Carter BUILDING CONSTRUCTION FOREMAN Work Phone: [phone] [place], [place] [address]Uhceuawjds37-43-9430 14:00-0400Body awkprk13.45 kgGrant Carter BUILDING CONSTRUCTION FOREMAN Work Phone: [phone] [place], [place] [address]coconeHermann Area District HospitalVobsczkaaj23-16-5026 13:40-0400Body .4 cmGrant Carter BUILDING CONSTRUCTION FOREMAN Work Phone: [phone] CentercoconeHermann Area District HospitalKxcxjgdmks06-71-1487 13:40-0400Body mass index (BMI) [Ratio]20.31 kg/p5Gzcvx Carter BUILDING CONSTRUCTION FOREMAN Work Phone: [facility] HospitalJswceqzskj85-34-1666 13:40-0400Body nennma76.17 kgGrant Carter BUILDING CONSTRUCTION FOREMAN Work Phone: [facility] HospitalSwwlsijije14-00-3927 07:30-0500Body temperature 97.8 [degF]Tony Amaya MD Work Phone: [phone]03-05-2025 07:30-0500 Diastolic blood lqwcqnfi40 mm[Hg]Tony Amaya MD Work Phone: [phone])[facility]-[address] [place], [place] 2243803-05-2025 07:30-0500 Heart rate88 /Yamil Amaya MD Work Phone: [phone])[address] [place], [place] 1821903-05-2025 07:30-0500 Respiratory rate18 /Yamil Amaya MD Work Phone: [phone])[address] [place], [place] 1821903-05-2025 07:30-0500 SaO2% (BldA) [Mass fraction]97 %Tony Amaya MD Work Phone: [phone])[address] [place], [place] 1821903-05-2025 07:30-0500 Systolic blood mjagyszr216 mm[Hg]Tony Amaya MD Work Phone: 1(724)[address] [place], [place] 1821903-03-2025 14:18-0500 Body .4 cmTony Amaya MD Work Phone: 1([phone])[address] [place], [place] 1821903-03-2025 08:53-0500 Body pivide76.62 kgTony Amaya MD Work Phone: [phone]09-12-2024 12:13-0400 Body zzsdwo325.3 Yeimy Monae MD Work Phone: [facility]09-12-2024 12:13-0400Body mass index (BMI) [Ratio]19.98 kg/e9NckzxlxtZoila Monae MD Work Phone: [facility]09-12-2024 12:13-0400Body qbcota68.35 kgZoila Monae MD Work Phone: [facility]09-12-2024 12:13-0400Diastolic blood cfqbixwy70 mm[Hg]Zoila Monae MD Work Phone: [facility]09-12-2024 12:13-0400Heart rate74 /min Zoila Monae MD Work Phone: [facility]09-12-2024 12:13-0400Systolic blood mm[Hg]Zoila Monae MD Work Phone: [facility]06-05-2024 13:46-0400Body dsvejk248.5 Yeimy Monae MD Work Phone: [facility]06-05-2024 13:46-0400Body mass index (BMI) [Ratio]19.1 kg/m6RuhzfocqZoila Monae MD Work Phone: [facility]06-05-2024 13:46-0400Body temperature 97.2 [degF]Zoila Monae MD Work Phone: [facility]06-05-2024 13:46-0400Body kodcei98 kg Zoila Monae MD Work Phone: [facility]06-05-2024 13:46-0400Diastolic blood fjqyzwfo65 mm[Hg]Zoila Monae MD Work Phone: [facility]06-05-2024 13:46-0400Heart vxnd523 /minScarter Monae MD Work Phone: [facility]06-05-2024 13:46-0400Systolic blood xxaeqtba509 mm[Hg]Zoila Monae MD Work Phone: [facility]11-11-2022 15:32-0500Body temperature 98.1 [degF]MD Tony Amaya Work Phone: [facility]11-11-2022 15:32-0500 Diastolic blood ojnwpjqp29 mm[Hg]MD Tony Amaya Work Phone: [facility]11-11-2022 15:32-0500 Heart rate78 /minMD Tony Amaya Work Phone: [phone])[address]11-11-2022 15:32-0500 Respiratory rate16 /minMD Tony Amaya Work Phone: [phone])[address] [place], [place] 1821911-11-2022 15:32-0500 SaO2% (BldA) [Mass fraction]94 %MD Tony Amaya Work Phone: 1(793)[address] [place], [place] 1821911-11-2022 15:32-0500 Systolic blood vlblmkme942 mm[Hg]MD Tony Amaya Work Phone: [phone]11-11-2022 11:00-0500 Inhaled oxygen flow rate3 L/minMD Tony Amaya Work Phone: [phone])[address]11-10-2022 12:39-0500 Body .4 cmMD Tony Hogabby Work Phone: 1(438)[address] [place], [place] 1821911-10-2022 06:00-0500 Body jrwulh22.9 kgMD Tony Hogabby Work Phone: [address] [place], [place] 1821911-09-2022 15:03-0500 Body mass index (BMI) [Ratio]19.1 kg/m2MD Tony Amaya Work Phone: [phone])[address]11-02-2022 14:27-0400 Body weight0 kgMD Tony Amaya Work Phone: [phone] Encounters Encounter DateEncounter TypeCare ProviderFacilityStart: 72-74-9851Tldzfqygu department patient visitSTEPHEN [facility]tart: 07-15-2025 End: 68-21-2571Ycfwbaxlcf and management of inpatientHADEER [facility] Glenbeightart: 05-21-2025 End: 03-51-8356QmerfqVhipn T Olsen NP Work Phone: [facility] OrthopaedicsComment on above:Post-op pain (Primary Dx)Start: 41-23-0444cbzddseydcIcawplh M HoyFacility:[facility] Hospitaltart: 05-05-2025 End: 56-33-3753Zdewgw flowsDella Carter BUILDING CONSTRUCTION FOREMAN Work Phone: [facility] OrthopaedicsStart: 05-05-2025 End: 83-86-5324Hwpeff flowsDella Carter BUILDING CONSTRUCTION FOREMAN Work Phone: [phone] [place] OrthopaedicsStart: 05-05-2025 End: 49-13-6942Fvazkhh encounter procedureNaseem Carter BUILDING CONSTRUCTION FOREMAN Work Phone: [facility] [place] OrthopaedicsComment on above:Pre-op evaluation (Primary Dx)Start: 05-05-2025 End: 56-79-5497Gdejoudwiergj examination doneNaseem Carter BUILDING CONSTRUCTION FOREMAN Work Phone: [facility] Work Phone: Start: 05-05-2025 End: 64-65-8130vbmmwdrrqgALOVS T OLSENNot AvailableStart: 03-28-2025 End: 44-83-9492vjrlrudnesKZMHOhioHealth Shelby Hospitaltart: 02-17-2025 End: 57-18-3863Vbresj Issac Carter BUILDING CONSTRUCTION FOREMAN Work Phone: [facility] ORTHOPAEDICSStart: 02-17-2025 End: 76-75-9293Fggyyq Issac Carter BUILDING CONSTRUCTION FOREMAN Work Phone: [facility] ORTHOPAEDICSStart: 02-17-2025 End: 40-20-9339psxxlxhjwjWRSCY T OLSENNot AvailableStart: 02-17-2025 End: 64-68-1620Tqtxqgo encounter procedureNaseem Carter BUILDING CONSTRUCTION FOREMAN Work Phone: [facility] FB ORTHOPAEDICSComment on above:Preop examination (Primary Dx)Start: 02-17-2025 End: 52-64-5582Xhcgjmuzbzbvz examination doneNaseem Carter BUILDING CONSTRUCTION FOREMAN Work Phone: [facility] Work Phone: Start: 30-41-7391kyvlkukmcsHSTRFlower Hospitaltart: 02-10-2025 End: 51-33-0653Rnsrttasb encounterJr. Luis Armando Teague DO Work Phone: [facility] ORTHOStart: 00-16-5227ebmsekqftlNPCWDayton Children's Hospitaltart: 01-08-2025 End: 67-93-4064Kwscqv flowsheetJr. Luis Armando Teague DO Work Phone: noms [facility] ORTHOStart: 01-08-2025 End: 54-67-1831Mwgjzn flowsheetJr. Luis Armando Teague DO Work Phone: noms [facility] ORTHOStart: 01-08-2025 End: 18-12-6136ghpkqmyzvhPR., LUIS ARMANDO TEAGUENot AvailableStart: 01-08-2025 End: 75-75-4618Pxiohy outpatient visit 25 minutesJr. Luis Armando Teague DO Work Phone: noms [facility] ORTHOComment on above:Carpal tunnel syndrome on left (Primary Dx); Pain in left handStart: 12-10-2024 End: 61-00-6622cresyrjgisISLYFlower Hospitaltart: 54-90-7170Vne-patient / Non-visitTony Amaya MD Work Phone: [facility]Mem[facility] Work Phone: Start: 12-01-2024 End: 93-41-1635Bgbilqqkbt and management of inpatientTony Amaya MD Work Phone: [facility] Work Phone: Start: 41-62-8776Bdahpgaych RecurringTony Amaya MD Work Phone: [facility]- CredibleStart: 11-29-2024 End: 87-97-2732ldfnidqwmtKUUX [address] Hospitaltart: 11-28-2024 End: 62-70-1479Gvwnjsa encounter procedureChristopher Sam DO Work Phone: ana BELLEVUEComment on above:Numbness and tingling in left handStart: 11-28-2024 End: 80-64-2891djxiooruyuBMJYMASHUVH HASSETTNot AvailableStart: 11-26-2024 End: 56-58-0304rjzcjuhemaGhezoor M Hoy MD Work Phone: [facility] Work Phone: Start: 11-26-2024 End: 76-49-8009Hrzvpdso Javy Amaya MD Work Phone: [facility]-LAB Path Spec [facility] HospStart: 48-74-0847Epjlpzztsb RecurringTony Amaya MD Work Phone: [facility]-BH CredibleStart: 11-11-2024 End: 56-90-5872Zfprfo flowsheetMaria B Apling BUILDING CONSTRUCTION FOREMAN Work Phone: [facility] CI ORTHOPAEDICSStart: 11-11-2024 End: 11-45-1821Lrppzo flowsheetMaria B Apling BUILDING CONSTRUCTION FOREMAN Work Phone: [facility] CI ORTHOPAEDICSStart: 11-11-2024 End: 29-80-0044lszozhfhfsIGYYW B APLINGNot AvailableStart: 11-11-2024 End: 83-07-8228Mgluwo outpatient visit 15 minutesMaria B Apling BUILDING CONSTRUCTION FOREMAN Work Phone: noms CI ORTHOPAEDICSComment on above:Closed nondisplaced fracture of base of fifth metacarpal bone of left hand with routine healing, subsequent encounter (Primary Dx); Closed nondisplaced fracture of right patella with routine healing, unspecified fracture morphology, subsequent encounter; Numbness and tingling in left handStart: 11-08-2024 End: 15-23-0039Azmtrm flowsheetZehra Bunch OT Work Phone: noms CI PTStart: 11-08-2024 End: 40-53-9699Ljsjyi flowsheetCogurmeet Bunch OT Work Phone: [facility] CI PTStart: 11-08-2024 End: 30-93-8935dogjbiykcbXhfyljml Blackston OT Work Phone: [facility] CI PTComment on above:Finger stiffness, left (Primary Dx)Start: 11-05-2024 End: 39-57-1731Qykffw flowsheetCogurmeet Bunch OT Work Phone: [facility] CI PTStart: 11-05-2024 End: 00-52-6982Ercnjx flowsheetCogurmeet Bunch OT Work Phone: [facility] CI PTStart: 11-05-2024 End: 42-93-5578slfvuepwugFjgwakoy Blackston OT Work Phone: [facility] CI PTComment on above:Finger stiffness, left (Primary Dx)Start: 11-01-2024 End: 91-91-7948Eyphtrnls encounterCogurmeet Bunch OT Work Phone: [facility] CI PTComment on above:CX OT todayStart: 10-29-2024 End: 28-32-8466Wdohop flowsSharath Bunch OT Work Phone: [facility] CI PTStart: 10-29-2024 End: 21-63-2939Laahjf flowsheetZehra Bunch OT Work Phone: [facility] CI PTStart: 10-29-2024 End: 06-36-0970ewndxavwmpXvjqxqxb Blackston OT Work Phone: [facility] CI PTComment on above:Finger stiffness, left (Primary Dx)Start: 10-25-2024 End: 46-38-2899Zchwgt flowsheetZehra Bunch OT Work Phone: [facility] CI PTStart: 10-25-2024 End: 11-31-7052Ttkdrk flowsheetCogurmeet Bunch OT Work Phone: [facility] CI PTStart: 10-25-2024 End: 66-35-9728jteprytjepMwcodrfq Blackston OT Work Phone: noms CI PTComment on above:Finger stiffness, left (Primary Dx)Start: 10-22-2024 End: 41-15-1381Dsfmup flowsSharath Bunch OT Work Phone: noms CI PTStart: 10-22-2024 End: 15-07-0539Yiuifr Nemo Bunch OT Work Phone: noms CI PTStart: 10-22-2024 End: 25-38-0392dppltrysiuBkumijcg Blackston OT Work Phone: noms CI PTComment on above:Finger stiffness, left (Primary Dx); Closed nondisplaced fracture of base of fifth metacarpal bone of left hand with routine healing, subsequent encounterStart: 10-08-2024 End: 71-13-8941Sscxektto encounterCogurmeet Bunch OT Work Phone: noms CI PTComment on above:OT Initial EvalStart: 10-07-2024 End: 93-70-7677Zvurrw flowsheetMaria B Apling BUILDING CONSTRUCTION FOREMAN Work Phone: [facility] CI ORTHOPAEDICSStart: 10-07-2024 End: 13-98-3159Iznjqj flowsheetMaria B Apling BUILDING CONSTRUCTION FOREMAN Work Phone: noms CI ORTHOPAEDICSStart: 10-07-2024 End: 24-51-8386bvacrqgpstPPMMP B APLINGNot AvailableStart: 10-07-2024 End: 62-90-3590Ntxajd outpatient visit 10 minutesMaria B Apling BUILDING CONSTRUCTION FOREMAN Work Phone: noms CI ORTHOPAEDICSComment on above:Closed nondisplaced fracture of base of fifth metacarpal bone of left hand with routine healing, subsequent encounter (Primary Dx); Closed nondisplaced fracture of right patella with routine healing, unspecified fracture morphology, subsequent encounterStart: 09-16-2024 End: 93-10-1578Dmubms flowsheetMaria B Apling BUILDING CONSTRUCTION FOREMAN Work Phone: [facility] CI ORTHOPAEDICSStart: 09-16-2024 End: 32-74-7874Pepklc flowsheetMaria B Apling BUILDING CONSTRUCTION FOREMAN Work Phone: [facility] CI ORTHOPAEDICSStart: 09-16-2024 End: 27-32-8971Deraeh follow up visit related to original pxMaria B Apling BUILDING CONSTRUCTION FOREMAN Work Phone: noms CI ORTHOPAEDICSComment on above:Closed nondisplaced fracture of base of fifth metacarpal bone of left hand with routine healing, subsequent encounter (Primary Dx); Closed nondisplaced fracture of right patella with routine healing, unspecified fracture morphology, subsequent encounterStart: 09-16-2024 End: 50-28-6353ixsycizggxKFXJU B APLINGNot AvailableStart: 08-19-2024 End: 74-53-5896Pialyu flowsheetMaria B Apling BUILDING CONSTRUCTION FOREMAN Work Phone: [facility] CI ORTHOPAEDICSStart: 08-19-2024 End: 34-72-0205Hajync flowsheetMaria B Apling BUILDING CONSTRUCTION FOREMAN Work Phone: [facility] CI ORTHOPAEDICSStart: 08-19-2024 End: 33-66-3915lunumxehtyLOCIO B APLINGNot AvailableStart: 08-19-2024 End: 94-88-1920Hmrzbf follow up visit related to original pxMaria B Apling BUILDING CONSTRUCTION FOREMAN Work Phone: [facility] CI ORTHOPAEDICSComment on above:Right elbow pain (Primary Dx); Closed nondisplaced fracture of base of fifth metacarpal bone of left hand with routine healing, subsequent encounterStart: 08-07-2024 End: 51-98-4818Ceogqv flowsheetMaria B Apling BUILDING CONSTRUCTION FOREMAN Work Phone: [facility] CI ORTHOPAEDICSStart: 08-07-2024 End: 79-20-8412Jvkikn flowsheetMaria B Apling BUILDING CONSTRUCTION FOREMAN Work Phone: [facility] CI ORTHOPAEDICSStart: 08-07-2024 End: 56-83-3877Xzxidl follow up visit related to original pxMaria B Apling BUILDING CONSTRUCTION FOREMAN Work Phone: noms CI ORTHOPAEDICSComment on above:Closed nondisplaced fracture of right patella with routine healing, unspecified fracture morphology, subsequent encounter (Primary Dx); Right elbow painStart: 08-07-2024 End: 22-02-7797cwrsmeozdkETXYY B APLINGNot AvailableStart: 07-22-2024 End: 93-19-5636Fvabqy flowsheetMaria B Apling BUILDING CONSTRUCTION FOREMAN Work Phone: [facility] CI ORTHOPAEDICSStart: 07-22-2024 End: 55-99-6876Neeabi flowsheetMaria B Apling BUILDING CONSTRUCTION FOREMAN Work Phone: [facility] CI ORTHOPAEDICSStart: 07-22-2024 End: 91-06-1608Qmvvcx outpatient visit 15 minutesMaria B Apling BUILDING CONSTRUCTION FOREMAN Work Phone: noms CI ORTHOPAEDICSComment on above:Left hand pain (Primary Dx); Contusion of dorsum of left hand; Closed nondisplaced fracture of base of fifth metacarpal bone of left hand with routine healing, subsequent encounterStart: 07-22-2024 End: 04-31-0957ptspcrkvtmWNSJM B APLINGNot AvailableStart: 07-10-2024 End: 11-08-8095Pasmzc flowsheetMaria B Apling BUILDING CONSTRUCTION FOREMAN Work Phone: [facility] CI ORTHOPAEDICSStart: 07-10-2024 End: 23-44-8349Lqujlt flowsheetMaria B Apling BUILDING CONSTRUCTION FOREMAN Work Phone: [facility] CI ORTHOPAEDICSStart: 07-10-2024 End: 09-57-6159Pvrgvp outpatient visit 15 minutesMaria B Apling BUILDING CONSTRUCTION FOREMAN Work Phone: noms CI ORTHOPAEDICSComment on above:Closed nondisplaced fracture of right patella, unspecified fracture morphology, initial encounter (Primary Dx); Right knee pain, unspecified chronicityStart: 07-10-2024 End: 89-50-7121rumgsqohanIBVEH B APLINGNot AvailableStart: 06-24-2024 End: 79-23-6803Kfgych flowsheetKusumia B Simoneing BUILDING CONSTRUCTION FOREMAN Work Phone: [facility] CI ORTHOPAEDICSStart: 06-24-2024 End: 94-30-9435Vmatfn flowsheetMaria B Apling BUILDING CONSTRUCTION FOREMAN Work Phone: [facility] CI ORTHOPAEDICSStart: 06-24-2024 End: 40-86-8108Nvibpa outpatient visit 25 minutesMaria Luis Nicholsing BUILDING CONSTRUCTION FOREMAN Work Phone: noms CI ORTHOPAEDICSComment on above:Left hand pain (Primary Dx); Right knee pain, unspecified chronicity; Contusion of right knee, initial encounter; Contusion of dorsum of left hand; Left shoulder pain, unspecified chronicity; Arthritis of left acromioclavicular joint; Glenohumeral arthritis, leftStart: 06-24-2024 End: 02-50-6193sxxskoivqvGOAJA B APLINGNot AvailableStart: 06-13-2024 End: 46-99-8000rmesghmdvtQYPCPQHF M NAYAKFacility:[facility] Start: 06-13-2024 End: 32-04-2547Zhblray encounter procedureScarter Monae MD Work Phone: [facility] FHCComment on above: Transient neurological symptoms (Primary Dx)Start: 02-89-6099uwjrsbakazKJNJHEIA M NAYAKFacility:[facility] Hospitaltart: 06-11-2024 End: 96-18-2742Gawrfjhzmx hospital visit by physicianEeg [facility] Work Phone: [facility] EEGComment on above:Memory deficit [R41.3]Start: 06-04-2024 End: 41-55-9778Jkaejc Evon Monae MD Work Phone: [facility] FHCComment on above: Memory deficit (Primary Dx); Auditory hallucinations; Mentally challengedStart: 05-28-2024 End: 93-91-6671Ckpefkdiq encounterScarter Monae MD Work Phone: [facility] Campustart: 03-06-2024 End: 78-92-3692wzburunbxvBCZGOEI Stacey JOSE LUISFacility:[facility] Hospitaltart: 03-06-2024 End: 53-60-2806Msfxzng encounter procedureScarter Monae MD Work Phone: [facility]oundCComment on above: Memory deficit (Primary Dx); Auditory hallucinations; Mentally challengedStart: 01-03-2023 End: 85-36-8786Bwhjmvqttn and management of inpatientDR TONY AMAYA .Facility: Start: 11-01-2022 End: 00-24-8067nmbhmzshqkLG TONY AMAYA .Facility:U1Niqed: 09-30-2022 End: 29-51-6727qvuuuzdianQK ROSALINA RESENDIZFacility:M4Mjrbg: 09-02-2022 End: 81-17-3722effnykazwuLX Tony M Hoy Work Phone: [facility] Work Phone: Start: 09-02-2022 End: 87-47-8552Nzaxpkj encounter procedureMD Tony Hoy Work Phone: [facility]Start: 08-25-2022 End: 00-89-2283knfaawnqbhJC ROSALINA RESENDIZFacility:D1Zabtv: 08-10-2022 End: 88-20-8509Bilxwblod to same day surgery center Tony Hoy Work Phone: [facility] CampusStart: 08-10-2022 End: 49-80-1626mvkxmtuczzHB Tony M Hoy Work Phone: [facility] Work Phone: Start: 08-08-2022 End: 92-37-2474unlwyyytapSM Tony M Hoy Work Phone: [facility] Work Phone: Start: 08-08-2022 End: 48-96-4341Edhldsta ReferredMD Tony Hoy Work Phone: [facility] Main CampusStart: 08-05-2022 End: 82-96-9893jgcvaljnusHZ Tony Boggs Hoy Work Phone: [facility] Work Phone: Start: 08-05-2022 End: 73-61-6324Wzzlkco encounter procedureMD Tony Espinosay Work Phone: [facility] Jfa-Tzh-Aylvazbd Testing Start: 07-30-2022 End: 56-60-8011wkahpfkrklRD ROSALINA RESENDIZFacility:M8Ggcne: 07-04-2022 End: 91-61-9861ejbhgapuqeQH TONY HOY .Facility:X0Ugmfx: 07-04-2022 End: 17-43-6685wdmqfuirscBJ ALBERTO FERROFacility:K3Pfydy: 54-83-2311Oyzrlmmik for preprocedural laboratory examinationL[facility] .[facility] Start: 06-27-2022 End: 93-21-0944ytldbbxvpfWEISRD SAMSA .Facility:R3Wntjg: 06-27-2022 End: 03-44-3748Zedbjtvhh for preprocedural laboratory examinationL[facility]LE [facility] . Facility:A9Kwinm: 06-22-2022 End: 24-47-0647icmwsfardhGPUDZZ SAMSA .Facility:G1Bdljb: 06-20-2022 End: 03-12-2410mavzvycylwEL TONY HOY .Facility:W7Dovmu: 06-20-2022 End: 08-31-0692oaqmqowxlpIUDOOK SAMSA .Facility:K2Vvnmo: 43-35-6493uxsdoahfunAN TONY HOY .Facility:H0Cnggs: 03-02-2022 End: 14-78-9135whlfmzxhlpIP TONY HOY .Facility:W7Nawrk: 01-18-2022 End: 42-20-0200Gwltgqnbky and management of inpatientDR TONY HOY .Facility:H1 Start: 03-30-2020 End: 74-09-2840Fmprmhkwjf and management of inpatientHANI SAADFacility:[facility] Procedures DateProcedureProcedure DetailPerforming ClinicianStart: 11-28-2024 End: 39-76-3875Xzzcix emg ea extremty w/paraspinl area completeChristopher Sam DO Work Phone: Start: 96-81-6985Iqoek Sarah Amaya MD Work Phone: Start: 14-52-2903Qirzy hand minimum 3 viewsMaria B Apling BUILDING CONSTRUCTION FOREMAN Work Phone: Start: 06-46-8962Bleum hand minimum 3 viewsMaria B Apling BUILDING CONSTRUCTION FOREMAN Work Phone: Start: 68-44-8520Aqvqmezyet examination knee 3 views Zulema B Apling BUILDING CONSTRUCTION FOREMAN Work Phone: Start: 39-48-7790Qkouf hand minimum 3 viewsMaria B Apling BUILDING CONSTRUCTION FOREMAN Work Phone: Start: 08-07-2024 End: 80-15-7698Kexhs elbow 2 viewsMaria B Apling BUILDING CONSTRUCTION FOREMAN Work Phone: Start: 23-89-0620Tagnj hand minimum 3 viewsMaria B Apling BUILDING CONSTRUCTION FOREMAN Work Phone: Start: 90-04-7711Zdiyifehop examination knee 3 views Zulema B Apling BUILDING CONSTRUCTION FOREMAN Work Phone: Start: 96-86-3008Nrlbatnlietpmqqhefpy w/rec awake&drowsySagarika Stacey Monae MD Work Phone: Start: 07-75-9370Nifjshewxdwsoqlaibtv w/rec awake&drowsyProvider CchsStart: 02-05-6960Kmbfa chest X-rayMD Tony Hoy Work Phone: Start: 08-12-2022 End: 24-72-5347Npzgx chest X-rayMD Tony Hoy Work Phone: Start: 45-39-7355Slrna chest X-rayMD Tony Hoy Work Phone: Start: 58-86-0445Klko fast bacilli cultureMD Tony Hoy Work Phone: Start: 37-46-9220Csiq fast stain methodMD Tony Amaya Work Phone: [phone]: 39-75-2561Xvifzoz microbial cultureMD Tony Amaya Work Phone: Start: 18-20-1874Odqbbrfot microbial cultureMD Tony Amaya Work Phone: Start: 94-18-6502Wnwyufkhkndjw of transfusion reaction Tony Amaya Work Phone: [phone]: 11-09-6951Hddzhcmg cultureMD Tony Amaya Work Phone: [phone]: 20-93-0496Bawwm chest X-rayMD Tony Amaya Work Phone: [phone]: 87-49-0761Fzndlea of chestMD Tony Amaya Work Phone: Start: 63-14-5205Taijm cultureMD Tony Amaya Work Phone: Start: 94-39-7410Wtiem chest X-rayMD Tony Amaya Work Phone: Start: 07-09-9625YDVBCS PACE. DUAL YOVANA IN CHEST SUBCU/FASCIA, OPENBLAIR GRUBBStart: 90-72-8859SGFFHODSK OF PACEMAKER LEAD INTO R VENTRICLE, PERC APPROACHBLAIR GRUBBStart: 70-11-8075FIHUVXCMX OF PACEMAKER LEAD INTO RIGHT ATRIUM, PERC APPROACHBLAIR GRUBBAcid fast bacilli cultureMD Tony Amaya Work Phone: [phone] fast stain methodMD Tony Amaya Work Phone: Aerobic microbial cultureMD Tony Amaya Work Phone: Anaerobic microbial cultureMD Tony Amaya Work Phone: [phone] cultureMD Tony Amaya Work Phone: Plan of Treatment DateCare ActivityDetailAuthorStart: 56-43-6612DBN Vaccine (1 - 1-dose 75+ series)RSV Vaccine (1 - 1-dose 75+ series)[facility]: 05-21-2027 Diabetes ScreeningDiabetes ScreeningLouis Stokes [facility] Medical Centertart: 06-04-2025 End: 25-13-4307Nqjmpbv encounter forufrrtf99/03/2025 1:00 PM EDT [facility] [address] [place], [id number] Jr. Luis Armando Teague DO [address] [facility] [address] [place] [address] [facility] [place] [facility]Start: 05-05-2025 End: 57-31-3130Fzpaoru encounter duubtmfsg88/04/2025 2:00 PM EDT Office Visit [facility] [place] [facility] [address] [place] [phone] Naseem Carter, BUILDING CONSTRUCTION FOREMAN [address] [place] [address] ArrivedNOBrown County Hospital OrthopaedicsComment on above:Arrived Start: 03-11-2025 End: 98-79-0965Qpcmmfi encounter apksrxbkk07/10/2025 2:00 PM EDT Office Visit [facility] [address] [place] [address] Chuy Jeter, PA [address] [facility] [address] [place] [address] N[facility]S FB ORTHOPAEDICSStart: 02-17-2025 End: 44-48-6519Zjiguwc encounter qefgdmdup93/19/2025 1:30 PM EDT Office Visit [facility] [address] [place] [phone] Naseem Carter, BUILDING CONSTRUCTION FOREMAN [address] [place] [address] [facility]ICSStart: 02-10-2025 End: 66-58-8996Pmcnxiw encounter erbnxjlyl21/12/2025 11:00 AM EDT Office Visit [facility] [address] [place] [phone] Naseem Carter, BUILDING CONSTRUCTION FOREMAN [address] [place] [address] NOMS FB ORTHOPAEDICSStart: 28-10-5716NvnutgxotMemorial Health System Start: 68-13-0160Orteqnuy admissionTuscarawas Hospitaltart: 92-18-8193GgcjktwbxTuscarawas Hospitaltart: 06-77-4225Apquz culture [facility] Hospital[facility]: 54-89-2315Sdbudvom identified in Urine by CultureUrine CultureTuscarawas Hospitaltart: 11-11-2024 End: 65-35-3925Qfxcovs encounter xnmphdycy34/10/2025 10:00 AM EST Office Visit [facility] [address] [place] [address] Zulema Mackay NP [address] [place] [address] NOMS CI ORTHOPAEDICSStart: 11-08-2024 End: 90-56-9653zhxglqzfgk28/07/2025 12:00 PM EST Treatment [facility] [address] [place] [address] Zehra Bunch, OT [address] [facility] [address] [place] [address] NOMS CI PTStart: 11-05-2024 End: 89-99-7041cnblyqemwj83/04/2025 12:00 PM EST Treatment [facility] [address] [place] [address] Zehra Bunch, OT [address] [place] [address] NOMS CI PTStart: 11-01-2024 End: 93-08-6139snslimhlol02/31/2025 1:00 PM EST Treatment [facility] [address] [place] [address] Zehra Bunch, OT [address] [place] [address] NOMS CI PTStart: 10-29-2024 End: 89-07-8497pubfzxcpgcAGDH CI PTComment on above:ArrivedStart: 10-25-2024 End: 83-81-0514mfkdnsblcw93/24/2025 9:00 AM EST Treatment [facility] [address] [place] [address] Zehra Bunch, OT [address] [place] [address] NOMS CI PTStart: 10-22-2024 End: 73-71-5680zopmeaaebb57/21/2025 1:00 PM EST Evaluation [facility] [address] [place] [address] Zehra Bunch, OT [address] [place] [address] Closed nondisplaced fracture of base of fifth metacarpal bone of left hand with routine healing, subsequent encounterNOMS CI PTComment on above:Closed nondisplaced fracture of base of fifth metacarpal bone of left hand with routine healing, subsequent encounterStart: 10-11-2024 End: 85-72-9666qyakqknflh11/10/2025 1:30 PM EST Evaluation [facility] [address] [place] [address] RobinFlorina gardner, OT [address] [place] [address] NOMS CI PTStart: 10-07-2024 End: 03-36-9459Shoqppr encounter nisqosapy76/06/2025 11:15 AM EST Office Visit [facility] [address] [place] [address] Zulema Mackay, BUILDING CONSTRUCTION FOREMAN [address] [place] [address] N[facility]S CI ORTHOPAEDICSStart: 09-16-2024 End: 83-34-7320Jzcamja encounter hqmtmpsku04/16/2024 10:00 AM EST Office Visit [facility] [address] [place] [address] Zulema Mackay BUILDING CONSTRUCTION FOREMAN [address] [place] [address] NOMS CI ORTHOPAEDICSStart: 08-19-2024 End: 99-02-9228Ydmitjo encounter nhhvflkyd71/18/2024 12:30 PM EST Office Visit [facility] [address] [place] [address] Zulema Mackay BUILDING CONSTRUCTION FOREMAN [address] [place] [address] NOMS CI ORTHOPAEDICSStart: 08-07-2024 End: 17-82-2955Hmvxnxh encounter procedureNOMS CI ORTHOPAEDICSComment on above: Closed nondisplaced fracture of right patella with routine healing, unspecified fracture morphology, subsequent encounter (Primary Dx)Start: 07-22-2024 End: 79-81-2704Zilpqji encounter procedureNOMS CI ORTHOPAEDICSComment on above: Left hand pain (Primary Dx); Contusion of dorsum of left handStart: 07-10-2024 End: 68-83-1740Wujbzna encounter ojqwvxyba68/09/2024 12:15 PM EDT Office Visit [facility] [address] [place] [address] Zulema Mackay BUILDING CONSTRUCTION FOREMAN [address] [place] [address] ArrivedNOMS CI ORTHOPAEDICSComment on above:ArrivedStart: 06-24-2024 End: 31-22-0919Tnxtgxi encounter uikfmhtxw21/23/2024 10:30 AM EDT Office Visit [facility] 112 [facility] 150 [place] [address] Zulema Mackay, BUILDING CONSTRUCTION FOREMAN 112 [facility] 150 [place] [address] Left hand pain (Primary Dx); Right knee pain, unspecified chronicity; Contusion of right knee, initial encounter; Contusion of dorsum of left hand; Left shoulder pain, unspecified chronicity; Arthritis of left acromioclavicular joint; Glenohumeral arthritis, leftNOMS CI ORTHOPAEDICSComment on above:Left hand pain (Primary Dx); Right knee pain, unspecified chronicity; Contusion of right knee, initial encounter; Contusion of dorsum of left hand; Left shoulder pain, unspecified chronicity; Arthritis of left acromioclavicular joint; Glenohumeral arthritis, leftStart: 06-13-2024 End: 28-32-0082Cacfeuw encounter /12/2024 12:30 PM EDT Office Visit Neurology [facility] [address] [place] [address] [place] [address] [place], [place] [address] Return in about 3 months (around 06/06/2024) for with Dr. Monae.[facility] InstituteCComment on above: Return in about 3 months (around 06/06/2024) for with Dr. Monae.Start: 06-11-2024 End: 65-53-7362Yrqvggn encounter xthccwasu75/10/2024 9:00 AM EDT Appointment [facility] EEG [address] [address] Memory deficit [R41.3][facility] EEGComment on above:Memory deficit [R41.3]Start: 23-38-2001Svtws-19 Vaccine ( season)Covid-19 Vaccine ()[facility]: 04-69-5395Lqdww-19 Vaccine ( season)Covid-19 Vaccine ( season)[facility]: 06-02-2024 Influenza vaccinationLouis Stokes [facility] VA Medical Centertart: 03-29-2024 End: 08-74-8908Wzwgmze encounter fiqifirnq33/28/2024 11:45 AM EDT Office Visit Neurology [address] [place] [address] Memory deficit [R41.3]NeurologyComment on above:Memory deficit [R41.3]Start: 10-02-2023 Behavioral Health ScreeningBehavioral Health ScreeningLouis Stokes [facility] Medical Centertart: 72-56-6923Bxnwt-19 Vaccine ( season)Covid-19 Vaccine ()[facility]ertart: 86-20-9367EryopjhudTuscarawas Hospitaltart: 82-47-3838DhzxoqqnmxmyIbmniqglcTuscarawas Hospitaltart: 08-10-2022 End: 96-37-5206VsmtqexzwTuscarawas Hospitaltart: 33-18-0428Cpnqoimaevef Vaccine: 50+ (1 of 1 - PCV)Pneumococcal Vaccine: 50+ (1 of 1 - PCV)[facility]: 50-48-2685Ouefypos Vaccine (1 of 2)Shingrix Vaccine (1 of 2) [facility]: 01-65-2738Ureus panelLipid ScreeningMercy Health Anderson Hospital Start: 24-73-7596Hwkmjeewx for malignant neoplasm of colonLouis Stokes [facility] Centertart: 42-13-6090Clzcsdybt for malignant neoplasm of breastMammogram Screening [facility]ertart: 39-47-2760Gomamjkpb for malignant neoplasm of cervixHPV TestingLouis Stokes [facility] Medical Centertart: 86-97-2900Jeruquxnd for malignant neoplasm of cervixLouis Stokes [facility] Centertart: 05-99-3155Ucuth microalbumin profileDTaP,Tdap,Td Vaccine (1 - Tdap)[facility]ertart: 53-09-8759Knqgusk ScreeningAnxiety ScreeningLouis [facility] Centertart: 10-76-8723Fmgqwbczrz ScreeningDepression ScreeningLouis Stokes [facility] Centertart: 88-69-3895Bcvrntdrq C screeningHepatitis C ScreeningLouis Stokes [facility] Centertart: 72-10-5500WZO screeningHIV ScreeningMercy Health Anderson HospitalAcid Fast Bacilli Culture & SmearAcid Fast Bacilli Culture & Smear [facility] SystemAnaerobic microbial cultureAnaerobic Culture [facility] Health SystemBacteria identified in Urine by CultureUrine [facility] Akron CampusChlamydia trachomatis [Presence] in Unspecified specimen by Organism specific cultureBlanchard Valley Health [facility] Ctr Work Phone: Chlamydia trachomatis [Presence] in Unspecified specimen by Organism specific cultureMemorial Health SystemEEGEEG NEUROLOGY 06/11/2024 12:00 AM EDTCSelect Medical [facility] End: 82-35-2137UEBF EEG ROUTINEEPIL EEG ROUTINE NEUROLOGY Routine Memory deficit Auditory hallucinations 1 Occurrences starting 03/06/2024 until 03/06/2025 [facility] Work Phone: Comment on above:1 Occurrences starting 03/06/2024 until 03/06/2025Fungal Culture Result 1Fungal Culture Result 1FOhioHealth Van Wert HospitalFungus identified in Unspecified specimen by CultureBlanchard Valley Health System Ctr Work Phone: Mycobacterium sp identified in Unspecified specimen by Organism specific cultureBlanchard Valley Health System Ctr Work Phone: Mycology CultureMycology [facility] CampusPatient EducationBipolar disorder - Discharge instructions [facility] Health DC Instructions Know your MedHocking [facility] Work Phone: Patient referralBlanchard Valley Health System [facility] Work Phone: [facility] Payers DatePayer CategoryPayerPolicy ID2023Self-pay2017Medicaid [id number] 2017Medicaid (Managed Care)[employer] Member Subscriber Plan / Payer (Effective 2017- Present) Name: Paulie, Emigdio S Relation to Subscriber: Self Name: Emigdio Apodaca Payer ID: Not on file Group ID: Not on file Type: Not on file Address: [facility] [address] [place] [id number]mr [id number] 2.16.840.1.204255.3.57[id number] 2.16.840.1.288018.3.579.2.28[id number] 2.16840.1.424842.3.579.2.71458-49-5289Qkiumkc4695763 2.16.840.1.702834.3.579.2.21476-56-9165Talvamv5128423 2.16840.1.111957.3.579.2.16600-86-6018Stfreeq2143644 2.16840.1.711033.3.579.2.29281-19-3104Xhtnzan6535340 2.16.840.1.548700.3.579.2.07697-79-6391Wowxrxo7878625 2.16.840.1.741931.3.579.2.91807-96-2627Qfovvqh4270939 2.16840.1.955943.3.579.2.68659-35-5247Oehtbwo0977498 2.16.840.1.677802.3.579.2.84147-08-1580Biofgck9632047 2.16.840.1.012086.3.579.2.91295-51-0298Mmiykvy1648346 2.16.840.1.328100.3.579.2.62732-09-8336Veullmk5357013 2.16.840.1.106548.3.579.2.62224-17-0389Nejarwo9369212 2.16.840.1.340805.3.579.2.33163-65-9011Tqxovty1487089 2.16.840.1.334991.3.579.2.08915-87-8075Udfoctg70510081 2.16.840.1.470826.3.579.2.662251-84-2362Voupcuk3336249 2.16.840.1.615400.3.579.2.403107-08-8171Pmjvpsr0962130 2.16.840.1.044521.3.579.2.795129-78-8446Xeeocyy5287897 2.16.840.1.496419.3.579.2.792346-57-0223Hdrplcx5166519 2.840.1.009583.3.579.2.956387-68-3188Bxiirkw8185666 2.16.840.1.921718.3.579.2.618835-96-6465Yxpzlso8762276 2.16.840.1.425053.3.579.2.381510-59-6416Fpcvywn9044408 2.16.840.1.747443.3.579.2.295360-75-4551Xcbdzuc2769389 2.16.840.1.015148.3.579.2.570117-24-2043Brvmkyx0013974 2.16.840.1.412756.3.579.2.583686-26-2119Seqxvdv2605807 2.16.840.1.245159.3.579.2.113449-29-4915Bbgyeqz9443660 2.16.840.1.773247.3.579.2.259577-54-9843Gciyclw8598542 2.16.840.1.963615.3.579.2.765606-35-6851Mrtfome4952482 2.16.840.1.312027.3.579.2.386706-33-1298Xetbdcy0169948 2.16.840.1.912746.3.579.2.887128-98-6299Msmtxam1148839 2.16.840.1.777123.3.579.2.695344-87-8075Tfysvmu6808842 2.16.840.1.190736.3.579.2.085581-16-3368Wauepbu1544999 2.16.840.1.093467.3.579.2.345013-53-5351Tzlnqtf5595893 2.16.840.1.428696.3.579.2.379445-27-7870Lgqscoc9678433 2.16.840.1.621670.3.579.2.310607-68-1667Imwgnhr5789293 2.16.840.1.078378.3.579.2.861248-61-5862Wvgqboe7118677 2.16.840.1.811995.3.579.2.522267-20-3749Uhcjcwx0687151 2.16.840.1.513174.3.579.2.937154-38-4028Rdzfroi6476819 2.16.840.1.439334.3.579.2.133629-10-4303Jmintiy3563592 2.16.840.1.489441.3.579.2.057840-82-1424Wtel-pjk25271490861-68-3222Mswbryw [id number]ited Healthcare [id number] 2.16.840.1.568931.3.579.2.386Ildjljm94389815 2..840.1.555753.3.579.2.531 Lgqyhwh07531306 2.16.840.1.016064.3.579.2.531 Social History DateTypeDetailFacilityTobacco smoking status NHISUnknown if ever smokedTuscarawas Hospital Work Phone: Start: 37-61-6216Mah Assigned At BirthFemalMercy Healthtart: 08-10-2022 End: 01-62-5696Bdxakwa smoking status NHISNever smoked tobacco (finding) [facility] Hospitaltart: 06-19-8307Asvcthg smoking status NHIS Tobacco smoking consumption unknownLouis Stokes [facility] Medical Centertart: 03-06-2024 End: 88-78-6903Puyyupu of Social functionLouis Stokes [facility] Medical Centertart: 03-06-2024 End: 17-60-4297Uirz Deprivation IndexBucyrus Community Hospital Score (1-100), lower number is lower wpmx11ChbnupiknLouis Stokes [facility] Medical Centertart: 02-40-5516Mjv Assigned At BirthNot on fileLouis Stokes Cleveland VA Medical Centertart: 13-34-2498Hcmndiw use and exposure Smokeless tobacco non-userNOMS HealthcareStart: 06-24-2024 End: 07-77-5967Aizfmljja beverage intakeEx-drinker (finding)[facility] Start: 12-86-6484Rjplvs identityIdentifies as female gender (finding)[facility] HealthcareStart: 67-76-4693Lbtlcx orientationHeterosexual (finding)[facility] HealthcareStart: 11-28-2024 End: 94-83-7370QvbRshpus (finding)[facility] Medical Equipment Procedure CodeEquipment CodeEquipment Original TextEquipment IdentifierDates ThoracotomySurgical adhesive/sealant, human-derived ([id number] FDAStart: 08-10-2022 Goals DatePatient GoalDesired Activity/State Functional Status GcwxFtleresmtmOdkinuKxfqxoug58-11-4846Jjbraggobx statusPatient at Baseline [facility] Work Phone: [phone]qkdxeoa statusPatient at Baseline [facility] Work Phone: Mental Status XpuuHrkdeirvijDgreraOjfvbsfn84-67-6993Epadvfgrj functionCognitive Status Patient at [facility] Work Phone: [phone]exaash functionCognitive Status Patient at [facility] Work Phone: Clinical Notes 08-10-2022 to 07-17-2025 Note Date & KdouGxlvFrkfrwsq64-54-0119 NoteRespiratory Progress Note Patient Name: Shelly Apodaca : [...] be re-evaluated every 24 hours. Shari Harris, DISMANTLER 07/17/2025UnOhioHealth Arthur G.[facility], Cancer [facility]10-15-2025 Note Attestation signed by Eyal Brooke MD [...] participated in the management and confirm Shen Mjeia MD's documentation. Please note there may be an additional personal documentation from me. Additional Findings : Patient stated that her slice plug cutter operator helper retired and she had not seen a slice plug cutter operator helper for a long time. Not on oxygen at home Continue prednisone, azithromycin, DuoNebs, reestablish care with pulmonology outpatient. Possible DC tomorrow Eyal Brooke MD adjunct psychology professor, Division of Internal Medicine [facility] Med-7 Daily Progress Note - 07/16/2025 12:37 PM; Room: [address] [place] [address] Admission: 07/15/2025 2:46 PM; Length of stay: [...] a day. Patient has not seen a slice plug cutter operator helper for a while and would like to establish care with a new slice plug cutter operator helper. She reports shortness of breath, cough, and [...] Active Inpatient Problems Principal Problem: COPD exacerbation (CMS/[facility]) Active Problems: Other hyperlipidemia Acute hypoxic respiratory [...] 3.58* 4.01 HEMOGLOBIN g/dL (more content not included)...[facility]10-15-2025 Note07/16/25 1211 Admission Assessment Questions Verify insurance with [...] Status Interested Does the patient have a gearcase assembler assigned to them through their insurance? No [...] able to send link and activate MyChart? NoUnOhioHealth Arthur [facility], [facility], Cancer Center10-15-2025 NoteRespiratory Progress Note Patient Name: Shelly Apodaca : [...] be re-evaluated every 24 hours. Beti Martin, DISMANTLER 07/16/2025UnOhioHealth Arthur [facility]10-14-2025 Note- Continue levothyroxineUnOhioHealth Arthur G.[facility]10-14-2025 Note- Continue Lamictal, Celexa, WellbutrinUnOhioHealth Arthur G.[facility]10-14-2025 Note- S/p PPMUnOhioHealth Arthur [facility]10-14-2025 Note- Continue simvastatin [facility]10-14-2025 Note- Patient hypoxic upon arrival, 2 L nasal cannula placed, wean as able -Begin azithromycin x 3 days -Begin prednisone 40 mg oral x 5 days -Mucinex every 12 hours as needed -DuoNebs every 6 hours as neededUnOhioHealth [facility]10-14-2025 Note07/15/252021 Bronchodilator Assessment Grid RR 3 Dyspnea 2 Breath Sounds 2 Resp History 2 Oxygen to keep SpO2 >/= 92% 2 Peak Flow 0 Level Level 2 Patient came in through ED with family SOB. Per protocol will be scheduled TID [facility]10-14-2025 NoteHospital Medicine History and Physical 07/15/2025 7:07 PM THE HOSPITALIST TEAM PREFERS TO USE tocario CHAT FOR NON-URGENT COMMUNICATION 7AM-7PM. IF I DO NOT RESPOND WITHIN 20 MINUTES OR URGENT MATTERS, PLEASE CALL THROUGH THE SUBSTANCE ABUSE SERVICES DIRECTOR. FROM 7PM-7AM, PLEASE PAGE [phone](COVR). Chief Complaint Chief Complaint Patient presents with [...] this hospital stay by a member of [facility] Medicine. Past Medical History Medical [...] Alcohol use: Not Currently (more content not included)...[facility]10-14-2025 Note 07/15/25 1817 Financial Resource Strain How hard is it [...] were you homeless or living in a usp (including now)? N Transportation Needs In the [...] than 3 How often do you attend episcopalian or gnosticism services? More than 4 Do you belong to any clubs or organizations such as episcopalian groups, unions, fraternal or athletic groups, or [...] In the past 12 months has the [employer], gas, oil, or water company threatened to shut off services in your home? 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 PD[id number] Miscellaneous Notes* Telephone Encounter - Naseem Carter NP - 05/21/2025 4:10 PM EDT Post op pain rx. PDMP reviewed documented [facility] encounter[facility] [id number] History of Present illness Narrative* Naseem Carter NP - 05/05/2025 2:00 PM EDT Images from the original [...] Daily RT ergocalciferol (Vitamin D-2) 1.25 MG (07957 UT) capsule 1 capsule escitalopram (LEXAPRO) 10 [...] testing for upcoming surgery. Complete history with medical,surgery, and current allergy and medication list obtained. Consent for surgery signed and witnessedafter verbal consent to perform surgery received. All questions answered and proposed surgery scheduled. SURGERY INSTRUCTIONS May PRE CERT SENT Follow up in about 30 days (around 06/04/2025) for Post-Op June 04 @ 1:[address] [place] [address] Teague. documented in this encounterHermann Area District HospitalElwwplsdtg22-94-5822 NoteSUBJECTIVE Reason for Visit: Emigdio Apodaca is [...] bradycardia. The patient was recently admitted to [facility] (11/25-11/27) after running out of home oxygen for approximately two weeks, experiencing dizziness, shortness of breath, and oxygen desaturations below 90%. She also had a four-day history of fever, nausea, vomiting, and decreased oral intake. Workup revealed influenza A and right lower lobe pneumonia. She was treated with supplemental oxygen, Tamiflu, steroids, and antibiotics before discharge. Most recent discharge from [facility] admission date 02/20/2025 Primary diagnoses hypoxia, [...] or lower extremity edema. 10/24/2023 office visit (Rapheal Lawrence NP): She has been feeling well [...] (CELEXA) 20 mg, Daily (more content not included)...[facility]-27-[facility] Note Patient here today for a 4 month follow up. Patient states she is doing well, no cardiac complaints at this time. Patient states she will be having left hand surgery in April or May with Dr. Teague. Review of Systems Constitutional: Negative.[facility]05-19-2025 History of Present illness Narrative* Naseem Carter NP - 02/17/2025 1:30 PM EDT Chief Complaint [...] Daily RT ergocalciferol (Vitamin D-2) 1.25 MG (81072 UT) capsule 1 capsule escitalopram (LEXAPRO) 10 [...] NP-C Naseem Carter NP documented in this encounterHermann Area District HospitalZasylgzccp03-35-0407 Telephone encounter Note* Telephone Encounter - Sunni Lew - 02/11/2025 1:50 PM EDT Patient can come to [place] 02/17 at 1:30. [facility] HospitalPyrtzkrfrt03-27-0133 Miscellaneous Notes* Telephone Encounter - Sunni Lew - 02/11/2025 1:50 PM EDT Patient can come to [place] at 1:30. * Telephone Encounter - Ana [...] had the flu. Please call patient at [phone]. documented in this [facility]05-13-2025 Telephone encounter Note* Telephone Encounter - Ana Laura Jacobs MA - 02/11/2025 10:29 AM EDT Called patient back, had to leave a voicemail. She does need to come back in for surgery instructions. She can do Monday the @ 1:30 if she calls back. [facility] HospitalSyezxlpjni47-44-8750 Telephone encounter Note* Telephone Encounter - Sunni Lew - 02/10/2025 4:20 PM EDT Patient called and left stating she missed her appt today because she had the flu. Please call patient at [phone]. [facility] HospitalRmodidgstf38-06-0906 History of Present illness Narrative* Jr. Luis Armando Teague, DO - 01/08/2025 10:30 AM EDT Images from the original [...] TO (L) HAND ; TAKEN TO [facility] ER - [place] WITH NORCO (R) [...] Daily RT ergocalciferol (Vitamin D-2) 1.25 MG (97083 UT) capsule 1 capsule escitalopram (LEXAPRO) 10 [...] is normal. Strength additional comments: 5/5 EQUAL CAN CLEANER STRENGTH Neurovascular Left Radial pulse: normal and [...] of surgery. The patient understands the risks ofsaid treatment. Questions answered in laymen terms at the bedside. The diagnosis, home exercise plan and any ongoing restrictions/ recommendations reviewed. If unable to be reached in office, I recommend evaluation at nearest Emergency Room if any symptoms worsened or new symptoms develop for requiring urgent evaluation. documented in this encounterHermann Area District HospitalWfxyzqhsbz46-22-4775 Discharge summary Author Jaquan Babin [facility] SystemNote Date/TimeMarch 2024 9:[address] [address] Discharge Summary Signed Patient: Emigdio Apodaca MR#: [id number] : 1965 Acct:[id number] Age/Sex: 59 / F Adm Date: 5 Loc: 1S Room: 1U1270-[address]: Jaquan Babin MD Copies to: [...] respond. 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 She reports not eating, poor ADLs, not taking her medications and sleeping too much. She denies alcoholor illegal substance abuse. Patient denies hallucinations. Patientdid report her sister completed suicide. Of note, patient reports being in [facility] Monday and Monday of last week [...] them since Monday when she was at [facility] for the flu. She states herdiarrhea has improved. She did eat some breakfast this morning but states she is a picky eater. Patient sees Jennifer Beasley, counselor in [place]. 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 If at anytime you are feeling an increase inyour psychiatric symptoms, call your physician or behavioral healthcare provider. If any time you have thoughts of harming yourself or others contact one of the following: Call (available 24/04) Crisis Text Line (available 24/04) text 4HOPE to [phone] [facility] Hope Line (available 8 a.m. Midnight) call [phone] ([phone]) Instructions: Know your Meds Prescriptions: Continued lamotrigine [...] Patient Comments: 3 days left Follow Up: [facility] [Outside] (established) Tony Amaya MD [...] signed by Jaquan Babin MD> 12/04/24 1005 [facility] Work Phone: 1(337) 359-927003-05-2025 Discharge [place] [id number] Discharge Summary Signed Patient: Emigdio Apodaca MR#: [id number] : 1965 Acct:[id number] Age/Sex: 59 / F Adm Date: 5 Loc: Room: [address] [place] [address]: Jaquan Babin MD Copies to: [...] respond. 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 She reports not eating, poor ADLs, not taking her medications and sleeping too much. She denies alcoholor illegal substance abuse. Patient denies hallucinations. Patientdid report her sister completed suicide. Of note, patient reports being in [facility] Monday and Monday of last week [...] them since Monday when she was at [facility] for the flu. She states herdiarrhea has improved. She did eat some breakfast this morning but states she is a picky eater. Patient sees Jennifer Beasley counselor in [place]. 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 If at anytime you are feeling an increase inyour psychiatric symptoms, call your physician or behavioral healthcare provider. If any time you have thoughts of harming yourself or others contact one of the following: Call (available 24/04) Crisis Text Line (available 24/04) text 4HOPE to [phone] [facility] Hope Line (available 8 a.m. Midnight) call [phone] ([phone]) Instructions: Know your Meds Prescriptions: Continued lamotrigine [...] Patient Comments: 3 days left Follow Up: [facility] [Outside] (established) Tony Amaya MD [Primary Care Provider] - (Call for any medical needs) Exam Physical Exam Vital Signs: Temp Pulse Resp BP Pulse Ox O2 Del Method 98.1 F 78 16 99/66 L 96 Room Air 12/03/24 20:15 12/03/24 20:15 12/03/24 20:15 12/03/24 20:15 12/03/24 20:15 12/03/24 20:15 Documented By: Jaquan Babin MD 12/04/24 1001 Signed By: 12/04/24 1005 [facility]03-04[facility]2025 Progress note Author Jaquan Babin [facility] Health SystemNote Date/TimeMarch 2024 1:[place] [address] Psychiatry Progress Note Signed Patient: Emigdio Apodaca MR#: [id number] : 1965 Acct:[id number] Age/Sex: 59 / F Adm Date: 5 Loc: Room: 5V2222-4 Type : ADM IN Attending Dr: Jaquan [...] <Electronically signed by Jaquan Babin MD> 12/03/24 1411 [facility] Work Phone: 1(159) 663-333703-04-2025 [place] [address] Psychiatry Progress Note Signed Patient: Emigdio Apodaca MR#: [id number] : 1965 Acct:[id number] Age/Sex: 59 / F Adm Date: 5 Loc: Room: [address] [place] [address] Type : ADM IN Attending Dr: Jaquan [...] MD 12/03/24 0939 Signed By: 12/03/24 1411 [facility]03-03-2025 History and physical note Author Jaquan Babin [facility] Health SystemNote Date/TimeMarch 2024 1:55[place] [address] Psychiatry H&P Signed Patient: Emigdio Apodaca MR#: [id number] : 1965 Acct:[id number] Age/Sex: 59 / F Adm Date: 5 Loc: Room: [address] [place] [address] Type: ADM IN Attending Dr: Jaquan Babin [...] respond. 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 She reports not eating, poor ADLs, not taking her medications and sleeping too much. She denies alcoholor illegal substance abuse. Patient denies hallucinations. Patientdid report her sister completed suicide. 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 She denies any SI, HI, AVH today. Patient's home medications are bupropion 300 mg daily, citalopram 20 mg daily, lamotrigine 50 mg daily. However, patient reports thatshe has not taken them since Monday when she was at [facility] for the flu. She states her diarrhea has improved. She did eat some breakfast this morning but states she is a picky eater. Patient sees Jennifer Beasley counselor in [place]. 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 [employer] Relationships: Patient identities her mom, Ana, and [...] AVH, HI, SI Insight: limited Judgment: limited [facility] Medical History (Updated 12/02/24 @ 09:21 by [...] explained Documented By: Jaquan Babin MD 12/02/24 09 Signed By: <Electronically signed by Jaquan Babin MD> 12/02/24 7091 [facility] Work Phone: 1(940) 668-966503-03-2025 [place] [address] Psychiatry H&P Signed Patient: Emigdio Apodaca MR#: [id number] : 1965 Acct:[id number] Age/Sex: 59 / F Adm Date: 5 Loc: 1S Room: [address] [place] [address] Type: ADM IN Attending Dr: Jaquan Babin [...] respond. 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 She reports not eating, poor ADLs, not taking her medications and sleeping too much. She denies alcoholor illegal substance abuse. Patient denies hallucinations. Patientdid report her sister completed suicide. Of note, patient reports being in [facility] Monday and Monday of last week [...] them since Monday when she was at [facility] for the flu. She states her diarrhea has improved. She did eat some breakfast this morning but states she is a picky eater. Patient sees Jennifer Beasley counselor in [place]. 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 The patient was recently admitted to [facility] (11/25-11/27) after running out of home [...] Ventricular Rate 02/21/2024 79 (more content not included)...[facility]-27-2025 History of Present illness Narrative* KATLIN Sal - 11/28/2024 11:00 AM EST Images from the original note were not included. Reason for Appointment: EMG Patient: Emigdio Apodaca : 1965 EMG Computer: 51fanli Referring Physician: Zulema GIBSON EMG: CAITLIN multimedia developer: Tye Dominguez RT(R) Office Location: [place] Reason for EMG: c/o numbness/tingling in left hand. No hx of DM. Not on blood thinners. Comments: Procedure was explained to the patient who expressed understanding. Patient appeared to have tolerated the test well despite some discomfort due to the nature of the test. documented in this encounterHermann Area District [id number] History of Present illness Narrative* Zulema Mackay [...] to walk afterwards, was taken to [facility] ER on 06/19/24 by her partner [...] to the therapist recommending a Neurologist. TX: XR/06/19/24/[facility] LT hand, RT knee, LT shoulder, [facility] ER 06/19/24, romeo, IBU, XR NOMS 07/22/24, XRNOMS 08/19/24, XR NOMS 10/07/24, O.T. messi noms RT Knee CT RT knee TB [...] to walk afterwards, was taken to [facility] ER on 06/19/24 by her partner [...] sensation in all fingers documented in this encounterHermann Area District HospitalKpwukzxnmf65-80-3295 History of Present illness Narrative* Zehra Bunch OT - 11/08/2024 12:00 PM EST Occupational Therapy Occupational Therapy Treatment Visit Patient Name: Emigdio Apodaca Today's Date: 11/08/2024 Linked Episodes Type: Episode: Status: Noted: Resolved: Last update: Updated by: Occupational Therapy L 5th digit fracture Active 10/08/2024 11/08/2024 9:28 AM Zehra Bunch OT Comments:Episode created from referral [id number] Visit number: 5 Timed Code Treatment minutes: [...] numbness and spasms to the L hand. 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 Encouraged stretching/ nerve glides at home. Does have a follow upwith ortho on Monday. P: Continue with POC, progress per toleration. documented in this encounterHermann Area District HospitalPclsusflsw48-60-3264 History of Present illness Narrative* Zehra Bunch OT - 11/05/2024 12:00 PM EST Occupational Therapy Occupational Therapy Treatment Visit Patient Name: Emigdio Apodaca Today's Date: 11/05/2024 Linked Episodes Type: Episode: Status: Noted: Resolved: Last update: Updated by: Occupational Therapy L 5th digit fracture Active 10/08/2024 11/01/2024 12:46 PM Zehra Bunch OT Comments:Episode created from referral [id number] Visit number: 01/07 Timed Code Treatment minutes: [...] POC, progress per toleration. documented in this [facility]01-31-2025 Telephone encounter Note* Telephone Encounter - Joanna Boo - 11/01/2024 12:43 PM EST She called noting not feeling well and is cx OT for today. I reminded her, her next on 11/05. She said she'll try to be here; I told her if not feeling better to contact. NOMS [id number] Miscellaneous Notes* Telephone Encounter - Joanna Boo - 11/01/2024 12:43 PM EST She called noting not feeling well and is cx OT for today. I reminded her, her next on 11/05. She said she'll try to be here; I told her if not feeling better to contact. documented in this [facility]01-28-2025 History of Present illness Narrative* Zehra Bunch OT - 10/29/2024 1:00 PM EST Occupational Therapy Occupational Therapy Treatment Visit Patient Name: Emigdio Apodaca Today's Date: 10/29/2024 Linked Episodes Type: Episode: Status: Noted: Resolved: Last update: Updated by: Occupational Therapy L 5th digit fracture Active 10/08/2024 10/28/2024 1:49 PM Zehra Bunch OT Comments:Episode created from referral [id number] Visit number: 12/07 Timed Code Treatment minutes: [...] POC, progress per toleration. documented in this encounterHermann Area District HospitalSusjbxkkzb26-16-2497 History of Present illness Narrative* Zehra Bunch OT - 10/25/2024 9:00 AM EST Occupational Therapy Occupational Therapy Treatment Visit Patient Name: Emigdio Apodaca Today's Date: 10/25/2024 Linked Episodes Type: Episode: Status: Noted: Resolved: Last update: Updated by: Occupational Therapy L 5th digit fracture Active 10/08/2024 10/24/2024 11:08 AM Zehra Bunch OT Comments:Episode created from referral [id number] Visit number: 28 Timed Code Treatment minutes: 55 Total Treatment [...] POC, progress per toleration. documented in this encounterHermann Area District HospitalCwgjptlvov27-00-4562 History of Present illness Narrative* Zehra Bunch [...] Amb, Background User Comments:Episode created from referral [id number] Visit number: 1 Subjective Interim History: 59 [...] 5th digit. Strength Strength additional comments: L carpenter apprentice strength: 15# LP: 5# R carpenter apprentice strength: 30# LP: 9 Treatment: Education: HEP [...] for light strengthening and ROM at discharge. Apple Peeler Operator Goals: PRWHE Pain Score < 10/50 ( IE: 33/50) PRWHE Functional Score < 10/100 ( IE:57/100 ) Increase L 5th digit CHAO to 100% pain free in order to complete I/ADL tasks at discharge. Pt to increase carpenter apprentice strength by 10# and LP by 2# [...] Please sign below. Date: documented in this encounterHermann Area District HospitalHaoqspoukl86-06-1058 Telephone encounter Note* Telephone Encounter - Joanna Boo - 10/08/2024 1:36 PM EST She called back and we scheduled her OT Eval for 10/11 w/ Florina Degroot OT. [facility] HospitalLthnclxtza55-52-3270 Miscellaneous Notes* Telephone Encounter - Joanna Boo - 10/08/2024 1:36 PM EST She called back and we scheduled her OT Eval for 10/11 w/ Florina Degroot, OT. * Telephone Encounter - Joanna Boo - 10/08/2024 11:46 AM EST Tried to contact to set-up OT for L hand, but the voicemail is full. documented in this encounterHermann Area District HospitalJrpklxggwp56-48-7174 Telephone encounter Note* Telephone Encounter - Joanna Boo - 10/08/2024 11:46 AM EST Tried to contact to set-up OT for L hand, but the voicemail is full. [facility] [id number] History of Present illness Narrative* Zulema Mackay NP - 10/07/2024 11:15 AM EST Images from the original note were not included. Subjective Patient ID: Emigdio Apodaca is a 59 y.o. female. LT hand 3.5 months s/p LT hand contusion She notes a few days after getting the cast off, she smashed her hand in the car door at [facility]. Here to check ROM Pt had tripped over a sidewalk and Fell landing on her left hand and right knee. DOI 06/19/24, she then hit her chest and rolled over onto her left shoulder hitting her shoulder. She was able to walk afterwards, was taken to [facility] ER on 06/19/24 by her partner Pt is RT handed. Will get spasms in hand that causes pain between 4th and 5th MC. Some aches with weather changes. Taking TYL prn. States constant numbness in thumb. Denies N/T in other fingers. Denies swelling. Does not wake at HS. Pain is 3/10 today, goes to 5-6/10 with spasms. [place]: XR/06/19/24/[facility] LT hand, RT knee, LT shoulder, [facility] ER 06/19/24, norco, IBU, XR NOMS 07/22/24, XRNOMS 08/19/[address] RT knee [facility] 07/05/24 Notes she started taking fosamax in 2023. States her knee is feeling better. 3.5 months Pt had tripped over a sidewalk and Fell landing on her left hand and right knee. DOI 06/19/24, she then hit her chest and rolled over onto her left shoulder hitting her shoulder. She was able to walk afterwards, was taken to [facility] ER on 06/19/24 by her partner [...] dx with 6 months ago. TX: XR/06/19/24/[facility] LT hand, RT knee, LT shoulder, [facility] ER 06/19/24, norco, IBU, XR NOMS [...] Neurovascular Left Capillary refill: <3 sec * Vijaya Cool, ARRT - 10/07/2024 11:15 AM EST Images from [...] to walk afterwards, was taken to [facility] ER on 06/19/24 by her partner Pt is RT handed. Hand is stiff and has been getting spasms still between 4th and 5th MC. Denies pain today. Taking TYL for multiple things. Using ice and heat. Has been moving fingers. Good ROM. Intermittent numbness, mostly in thumb. Intermittent swelling. Sometimes wakes at HS. TX: XR/06/19/24/[facility] LT hand, RT knee, LT shoulder, [facility] ER 06/19/24, norco, IBU, XR NOMS [...] to walk afterwards, was taken to [facility] ER on 06/19/24 by her partner [...] on 08/04/23 and hit her right elbow. back tender cloth printing to the touch, medial elbow. TX: xrays [...] Capillary refill: <3 sec documented in this encounterHermann Area District HospitalTiulokynxf71-59-9101 History of Present illness Narrative* Zulema Mackay [...] to walk afterwards, was taken to [facility] ER on 06/19/24 by her partner [...] LT hand, RT knee, LT shoulder, [facility] ER 06/19/24, norco, IBU, XR NOMS 07/22/24, XRNOMS 08/19/[address] RT knee [facility] 07/05/24 Notes she started taking fosamax [...] to walk afterwards, was taken to [facility] ER on 06/19/24 by her partner [...] LT hand, RT knee, LT shoulder, [facility] ER 06/19/24, norco, IBU, XR NOMS [...] Capillary refill: <3 sec documented in this encounterHermann Area District HospitalIykfvvyizt94-14-8140 History of Present illness Narrative* Zulema Mackay [...] to walk afterwards, was taken to [facility] ER on 06/19/24 by her partner [...] in the thumb. Denies swelling. TX: XR/06/19/24/[facility] LT hand, RT knee, LT shoulder, [facility] ER 06/19/24, norco, IBU, XR NOMS [...] base of 5th MC fracture. Zulema Mackay PRODUCTION CONTROL TECHNOLOGIST Assessment/Plan Encounter Diagnoses: ICD-10-CM 1. Right elbow [...] of the left hand documented in this encounterHermann Area District HospitalCeaosirejv73-09-5562 History of Present illness Narrative* Zulema Mackay NP - 08/07/2024 11:00 AM EST Images from the original note were not included. Subjective Patient ID: Emigdio Apodaca is a 58 y.o. female. RT Knee CT RT knee [facility] 07/05/24 Notes she started taking fosamax [...] to walk afterwards, was taken to [facility] ER on 06/19/24 by her partner [...] healing non displaced patella fracture Zulema Mackay [facility] XR elbow 1 or 2 views right Imaging Result: Xrays AP and LAT of the right elbow performed on August 07, 2024 demonstrates no swelling, no fractures appreciated, joint congruent. Impression Unremarkable xrays of the right elbow Zulema Mackay [facility] Assessment/Plan Encounter Diagnoses: ICD-10-CM 1. [...] how she is doing. documented in this encounterHermann Area District HospitalAcpgpakvmp04-33-2152 History of Present illness Narrative* Zulema Mackay [...] to walk afterwards, was taken to [facility] ER on 06/19/24 by her partner Pt is RT handed. block cast intact. Pain is between LF and RF. Pain at rest 5/10, with activities (worse at night) 8/10. She is taking motrin prn for the pain. Admits constant numbness in the thumb. Denies swelling. TX: XR/06/19/24/[facility] LT hand, RT knee, LT shoulder, [facility] ER 06/19/24, norco, IBU, XR NOMS [...] Healing 5th MC base fracture. Zulema Mackay PRODUCTION CONTROL TECHNOLOGIST Assessment/Plan Encounter Diagnoses: ICD-10-CM 1. Left hand [...] of the left hand documented in this encounterHermann Area District [id number] History of Present illness Narrative* Zulema Mackay NP - 07/10/2024 12:15 PM EDT Images from the original note were not included. Subjective Patient ID: Emigdio Apodaca is a 58 y.o. female. RT Knee CT RT knee [facility] 07/05/24 3 weeks ago, Pt had tripped over a sidewalk and Fell landing on her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 DateEnd Date Tony Amaya MD [address] [facility] [place] [address] PCP - [facility]06/24/24Team MemberRelationshipSpecialtyStart DateEnd Date Tony Amaya MD [address] [facility] [place] [address] PCP - [facility]06/24/24 Team Status: Active Member Role Status Dates Tony Amaya MD Primary Care Provider Active Start: November 14, 2024 Alejandro Maciel MDAttlidia ProviderActiveStart: November 14, 2024 Team Status: Inactive Member Role Status Chucho Amaya MD Attending Provider Active Sta rt: November 26, 2024 End: November 26, 2024Team MemberRelationshipSpecialtyStart DateEnd Date Tony Amaya MD [address] [facility] [place] [address] PCP - [facility]06/24/24 Team Status: Active Member Role Status Chucho Amaya MD Primary Care Provider Active Start: December 01, 2024 Kingsley Espinal ProviderActiveStart: December 01, 2024 Team Status: Inactive Member Role Status Dates Tony Amaya MD Primary Care Provider Active Start: December 01, 2024 End: December 04dedong Babin MDAdmit Provider, Attending ProviderActive Start: December 01, 2024 End: December 04, 2024 Team Status: Active Member Role Status Dates Tony Amaya MD Primary Care Provider Active Start: December 02, 2024 Jaquandong Babin MDAdmit Provider, Attending Provider, Other ProviderActive Start: December 02, 2024 Team MemberRelationshipSpecialtyStart DateEnd Date Tony Amaya MD PCP - [facility] Medicine06/24/24Team MemberRelationshipSpecialtyStart DateEnd Date [facility]/24Team MemberRelationshipSpecialtyStart DateEnd Date Tony Am[facility] MD [facility] - [facility]06/24/24Team MemberRelationshipSpecialtyStart DateEnd Date Tony Amaya MD [address] [place] [address] PCP - [facility]05/02/25Team MemberRelationshipSpecialtyStart DateEnd Date Tony Amaya MD [address] [place] [address] PCP - [facility]05/02/25 Goals (unrecognized section and content) Goals may [...] or prosecute any alcohol or drug abuse patient.[facility] HospitalIn the event this information is protected by the Federal Confidentiality of Alcohol and Drug Abuse Patient Records regulations: The Federal rules restrict any use of the information to criminally investigate or prosecute any alcohol or drug abuse patient.[facility] HospitalIn the event this information is protected by the Federal Confidentiality of Alcohol and Drug Abuse Patient Records regulations: The Federal rules restrict any use of the information to criminally investigate or prosecute any alcohol or drug abuse patient.[facility] HospitalIn the event this information is protected by the Federal Confidentiality of Alcohol and Drug Abuse Patient Records regulations: The Federal rules restrict any use of the information to criminally investigate or prosecute any alcohol or drug abuse patient.[facility] HospitalIn the event this information is protected by the Federal Confidentiality of Alcohol and Drug Abuse Patient Records regulations: The Federal rules restrict any use of the information to criminally investigate or prosecute any alcohol or drug abuse patient.[facility] HospitalIn the event this information is protected by the Federal Confidentiality of Alcohol and Drug Abuse Patient Records regulations: The Federal rules restrict any use of the information to criminally investigate or prosecute any alcohol or drug abuse patient.[facility] Reason for Visit (unrecogniz ed section and content) ReasonCommentsDementiacognitiveReasonCommentsFollow UpReasonCommentsPainReason CommentsFractureReasonCommentsFollow-upReasonOnset DateCommentsOT Initial Eval 10/08/2024ReasonCommentsFollow-upReasonOnset DateCommentsCX OT today11/01/2024 ReasonCommentsPre-op ExamReasonCommentsPre-op Visit FOR RECORDS PERTAINING TO PATIENTS WHO [...] BE BASED ON THE PRIMARY CLINICAL RECORDS. [facility] [employer] [facility]. provides no warranty or guarantee of the accuracy or completeness of information in this document.
[2025-07-22] MEDS: SODIUM CHLORIDE 3% INHALATION 15 ML NEB 6 ML IH ×2 (16:03→20:50)
[2025-07-22] MEDS: BUDESONIDE 0.5 MG/2 ML AMPULE NEB IH (20:50)
[2025-07-22] MEDS: ATORVASTATIN CALCIUM 10 MG TABLET PO (22:38)
[2025-07-22] MEDS: GUAIFENESIN 200 MG/DEXTROMETHORPHAN 20 MG 10 ML UNIT DOSE CUP PO (22:38)
[2025-07-22] MEDS: LAMOTRIGINE 25 MG TABLET 50 MG PO (22:38)
[2025-07-23] VITALS (22 sets, daily range): BP systolic 112–143; BP diastolic 63–78; PULSE 70–88; TEMP 36.5–36.8; O2SAT 93–97
[2025-07-23] MEDS: LEVOTHYROXINE SODIUM 125 MCG TABLET PO (05:20)
[2025-07-23] MEDS: ALBUTEROL SULFATE 2.5 MG/3 ML VIAL NEB IH ×4 (05:26→20:53)
[2025-07-23] MEDS: SODIUM CHLORIDE 3% INHALATION 15 ML NEB 6 ML IH ×4 (05:26→20:53)
--- NOTE | 2025-07-23 06:22 | RESP.RT ---
Titrated to 1 lpm
--- NOTE | 2025-07-23 06:24 | RESP.RT ---
Titrated to 1 lpm
[2025-07-23 06:41] LABS: Alanine Aminotransferase 17 U/L (14-59); Albumin Globulin Ratio 0.9; Albumin Level 3.2 g/dL (3.4-5.0); Alkaline Phosphatase 95 U/L (46-116); Anion Gap 13.5; Aspartate Amino Transferase 12 U/L (15-37); Blood Urea Nitrogen 24.0 mg/dL (7.0-18.0); Calcium 8.9 mg/dL (8.5-10.1); Carbon Dioxide 26.5 mmol/L (21.0-32.0); Chloride 106 mmol/L (98-107); Estimated GFR (African America >60 (>=60 mL/min/1.73m^2); Estimated GFR (Non-African Ame >60 (>=60 mL/min/1.73m^2); Globulin 3.6 g/dL; Glucose 139 mg/dL (74-106); Magnesium 2.3 mg/dL (1.8-2.4); Potassium 4.0 mmol/L (3.5-5.1); Sodium 142 mmol/L (136-145); Total Protein 6.8 g/dL (6.4-8.2)
[2025-07-23 06:49] LABS: Hematocrit 39.2 % (36.0-48.0); Hemoglobin 12.4 g/dL (12.0-16.0); Immature Granulocytes Abs Auto 0.04 10^3/uL (0.00-0.03); Immature Granulocytes Pct Auto 0.4 % (0.0-0.5); Lymphocytes Absolute Auto 0.8 10^3/uL (1.2-3.8); Mean Corpuscular HGB Conc 31.6 g/dL (29.9-35.2); Mean Corpuscular Hemoglobin 27.6 pg (26.7-34.0); Mean Corpuscular Volume 87.1 fL (81.0-99.0); Platelet Count 256 10^3/uL (150-450); Red Blood Count 4.50 10^6/uL (4.20-5.40); White Blood Count 9.1 10^3/uL (4.0-11.0)
[2025-07-23] MEDS: CETIRIZINE HCL 10 MG TABLET PO (08:11)
[2025-07-23] MEDS: CHOLECALCIFEROL (VITAMIN D3) 25 MCG/1,000 UNITS TABLET 50 MCG PO (08:11)
[2025-07-23] MEDS: ENOXAPARIN SODIUM 40 MG/0.4 ML SYRINGE SUBQ (08:11)
[2025-07-23] MEDS: BUPROPION HCL 150 MG XL TABLET 24H 300 MG PO (08:11)
[2025-07-23] MEDS: GUAIFENESIN 200 MG/DEXTROMETHORPHAN 20 MG 10 ML UNIT DOSE CUP PO (08:11)
[2025-07-23] MEDS: METHYLPREDNISOLONE SOD SUCC PF 40 MG/ML VIAL IVP ×3 (08:11→23:47)
[2025-07-23] MEDS: PANTOPRAZOLE SODIUM 40 MG TABLET.DR PO (08:11)
[2025-07-23] MEDS: CITALOPRAM HYDROBROMIDE 20 MG TABLET PO (08:11)
[2025-07-23] MEDS: SENNOSIDES/DOCUSATE SODIUM 1 TAB TABLET PO (08:27)
[2025-07-23] MEDS: MECLIZINE HCL 12.5 MG TABLET 25 MG PO (08:27)
--- NOTE | 2025-07-23 09:50 | CM.NOTE ---
Rounds made with Dr. Solares, discussed plan of care with pt. No discharge today.
[2025-07-23] MEDS: BUDESONIDE 0.5 MG/2 ML AMPULE NEB IH ×2 (11:13→20:53)
[2025-07-23] MEDS: AZITHROMYCIN 500 MG in 0.9 % SODIUM CHLORIDE 250 ML 250 MG IV (11:18)
[2025-07-23] MEDS: 0.9 % SODIUM CHLORIDE 250 ML 10 ML IV (11:18)
[2025-07-23] MEDS: BENZONATATE 100 MG CAPSULE PO (11:18)
--- NOTE | 2025-07-23 11:52 | PM.PN ---
Progress Note: Subjective Subjective Interval history: Patient seen and examined at bedside. Patient states that today she is feeling better her cough is less than yesterday. She is able to come up with sputum after started on the vest therapy. No fever no chills overnight. No leukocytosis on labs remains on IV antibiotics and and IV steroids Exam Narrative Exam Narrative: General Appearance: Patient is frail cachectic with moderate malnutrition and disheveled. Continues with cough that is severe and harsh. She is able to speak in full sentence and having cough during my encounter. [facility] Common normals: normocephalic and head/scalp atraumatic Eye Common normals: PERRL, EOMs intact bilaterally, conjunctivae normal and no scleral icterus Respiratory Effort & inspection: Bilateral wheezes have improved but still there, with some rhonchi with decreased air entry. Her tachypnea and work of breathing has improved however still with some increased work of breathing. Does have cough which is dry and sometimes productive. Common normals: regular rate, regular rhythm, S1 normal heart sound and S2 normal heart sound GI Common normals: Normal to inspection, nondistended, normoactive bowel sounds present, soft to palpation and non-tender Extremity Common normals: normal to inspection and full ROM Neuro Common normals: oriented x3, CN's II-XII intact bilaterally, moves all extremities and no focal motor deficits Constitutional Vital Signs, click to edit/add: Last Vital Signs Temp 97.8 F 07/23/25 07:24 Pulse 77 07/23/25 11:15 Resp 20 07/23/25 07:24 BP 118/67 07/23/25 07:24 Pulse Ox 97 07/23/25 11:37 O2 Del Method Nasal Cannula 07/23/25 11:37 O2 Flow Rate 1 07/23/25 11:37 Progress Note: Objective Labs Labs: Short CBC 07/23/25 Range/Units 05:57 WBC 9.1 (4.0-11.0) 10^3/uL Hgb 12.4 (12.0-16.0) g/dL Hct 39.2 (36.0-48.0) % Plt Count 256 (150-450) 10^3/uL BMP 07/23/25 05:57 Sodium 142 Potassium 4.0 Chloride 106 Carbon Dioxide 26.5 BUN 24.0 H Creatinine 0.69 Glucose 139 H Calcium 8.9 Liver Function 07/23/25 Range/Units 05:57 Total Bilirubin 0.2 (0.2-1.0) mg/dL AST 12 L (15-37) U/L ALT 17 (14-59) U/L Alkaline Phosphatase 95 (46-116) U/L Albumin 3.2 L (3.4-5.0) g/dL Progress Note: A&P Assessment and Plan (1) Acute hypoxic respiratory failure: (2) Acute exacerbation of chronic obstructive pulmonary disease (COPD): Plan Acute hypoxic respiratory failure (documented 70% saturation on 2 L nasal currently being) in the setting of acute COPD/emphysema exacerbation Frailty and question of compliance Pulmonary cachexia? - Admit patient to medical floor telemetry - I changed the methylprednisolone to 4 mg every 8 hours daily every 12 hours - I added Tessalon to Robitussin for cough - I can switch her doxycycline to azithromycin IV 5 mg IV daily given the change in her cough and the severity of her COPD for anti-inflammatory effect - Continue with DuoNebs 4 times daily, I will add Symbicort to her regimen while in the hospital - I will add Vapotherm to help with her work of breathing -Continuing with Lovenox 40 mg subcutaneously for DVT PPx -IV pantoprazole for GI PPx -Discussed the plan with the pt in details. Answered her questions -Pt may benefit from oxygen test on discharge 07/22/2025 patient continues to have this severe cough, I added Tessalon and made schedule set of as needed as well as promethazine to her cough Robitussin. Will add IV ceftriaxone 1 g every 24 hours to her IV azithromycin that has already been started yesterday. Will continue with DuoNeb as well as Symbicort and IV methylprednisolone. I asked respiratory therapy to help me with placing the patient on vest therapy as well as on hypertonic nebulized saline. Discussed plan with the patient and I told her that this will need some time to improve given her very severe COPD presentation. She understands agrees with this plan management. She is not in any impending respiratory failure and is saturating well on 2 L nasal cannula so we will continue with that for now. Discussed the case with the nursing team as well. 07/23/2025 patient's cough has improved, she states that she is able to come up with more secretions described as green with the vest therapy and hypertonic saline. She continues to be on Robitussin, Tessalon Perles as well as promethazine. Continue to be on IV azithromycin and ceftriaxone given this color of the sputum. Ordered CT chest without contrast given her monocytosis on her CBC. Discussed with her the plan and stated that she may need oxygen on discharge. Still have some time and some work to do before able to clear for discharge. She understands agrees with this plan of management
--- NOTE | 2025-07-23 12:35 | CT_ITS ---
[address] [address] Patient Name: EMIGDIO ELI MRN: [id number] date: 1965 Sex: F Assigned Patient Location: Current Patient Location: Accession/Order Number: [id number] Exam Date: 07/23/2025 12:27 Report Date: 07/23/2025 13:55 At the request of: SILVIA SWENSON MD Procedure: CT chest wo con CT chest wo con 07/23/2025 12:39 PM SIGN AND SYMPTOMS: Cough TECHNIQUE: Multidetector CT axial slices of the chest were obtained without IV contrast. Multiplanar reformats were performed and viewed on a separate workstation and reviewed to further define anatomy and possible pathology. CT was performed with one or more of the following dose reduction techniques: Automated exposure control, adjustment of the mA and/or kV according to patient size, or use of iterative reconstruction technique. COMPARISON: None.. FINDINGS: Lower neck: Thyroid gland within normal limits, no supraclavicle adenopathy. Vessels: Within normal limits. No atherosclerotic changes in the aorta. and coronary arteries. Mediastinum and Eli: Calcified lymph nodes are noted in the right hilum. Heart: Normal size. No pericardial effusion. Airways: Within normal limits Lungs: Emphysematous changes are noted with scarring near the lung bases. Postsurgical changes are noted in the right upper and lower lobes. Pleura: Within normal limits. Chest Wall: Within normal limits. Upper Abdomen: Within normal limits. Bones: There is an S-shaped curvature of the thoracic spine. There is a remote compression deformity of the superior endplate of the L2 vertebral body CT/CT chest wo con IMPRESSION: No acute cardiac pulmonary pathology. Emphysematous changes are noted with scarring near the lung bases. Postsurgical changes are noted in the right upper and lower lobes. Impression dictated by: Edmond Canada M.D. 07/23/2025 1:55 PM Dictation Location: [place] [address] Electronically authenticated by: [id number] Y Date: 07/23/2025 13:55
[2025-07-23] MEDS: LAMOTRIGINE 25 MG TABLET 50 MG PO (21:45)
[2025-07-23] MEDS: ATORVASTATIN CALCIUM 10 MG TABLET PO (21:45)
[2025-07-24] VITALS (21 sets, daily range): BP systolic 108–149; BP diastolic 58–79; PULSE 71–90; TEMP 36.5–36.9; O2SAT 93–97
[2025-07-24] MEDS: ALBUTEROL SULFATE 2.5 MG/3 ML VIAL NEB IH ×4 (05:02→20:29)
[2025-07-24] MEDS: SODIUM CHLORIDE 3% INHALATION 15 ML NEB 6 ML IH ×4 (05:02→20:29)
[2025-07-24 05:38] LABS: Hematocrit 41.4 % (36.0-48.0); Hemoglobin 12.8 g/dL (12.0-16.0); Immature Granulocytes Abs Auto 0.09 10^3/uL (0.00-0.03); Immature Granulocytes Pct Auto 1.2 % (0.0-0.5); Lymphocytes Absolute Auto 0.7 10^3/uL (1.2-3.8); Mean Corpuscular HGB Conc 30.9 g/dL (29.9-35.2); Mean Corpuscular Hemoglobin 26.9 pg (26.7-34.0); Mean Corpuscular Volume 87.2 fL (81.0-99.0); Platelet Count 253 10^3/uL (150-450); Red Blood Count 4.75 10^6/uL (4.20-5.40); White Blood Count 7.7 10^3/uL (4.0-11.0)
[2025-07-24] MEDS: LEVOTHYROXINE SODIUM 125 MCG TABLET PO (05:47)
[2025-07-24 05:53] LABS: Alanine Aminotransferase 21 U/L (14-59); Albumin Globulin Ratio 0.9; Albumin Level 3.1 g/dL (3.4-5.0); Alkaline Phosphatase 99 U/L (46-116); Anion Gap 12.2; Aspartate Amino Transferase 10 U/L (15-37); Blood Urea Nitrogen 16.0 mg/dL (7.0-18.0); Calcium 8.4 mg/dL (8.5-10.1); Carbon Dioxide 27.3 mmol/L (21.0-32.0); Chloride 105 mmol/L (98-107); Estimated GFR (African America >60 (>=60 mL/min/1.73m^2); Estimated GFR (Non-African Ame >60 (>=60 mL/min/1.73m^2); Globulin 3.5 g/dL; Glucose 207 mg/dL (74-106); Magnesium 2.4 mg/dL (1.8-2.4); Potassium 3.5 mmol/L (3.5-5.1); Sodium 141 mmol/L (136-145); Total Protein 6.6 g/dL (6.4-8.2)
[2025-07-24] MEDS: BUPROPION HCL 150 MG XL TABLET 24H 300 MG PO (08:12)
[2025-07-24] MEDS: CHOLECALCIFEROL (VITAMIN D3) 25 MCG/1,000 UNITS TABLET 50 MCG PO (08:12)
[2025-07-24] MEDS: PANTOPRAZOLE SODIUM 40 MG TABLET.DR PO (08:12)
[2025-07-24] MEDS: CITALOPRAM HYDROBROMIDE 20 MG TABLET PO (08:12)
[2025-07-24] MEDS: METHYLPREDNISOLONE SOD SUCC PF 40 MG/ML VIAL IVP ×2 (08:13→15:24)
[2025-07-24] MEDS: ENOXAPARIN SODIUM 40 MG/0.4 ML SYRINGE SUBQ (08:13)
[2025-07-24] MEDS: CETIRIZINE HCL 10 MG TABLET PO (08:13)
[2025-07-24] MEDS: SENNOSIDES/DOCUSATE SODIUM 1 TAB TABLET PO (08:16)
[2025-07-24] MEDS: BUDESONIDE 0.5 MG/2 ML AMPULE NEB IH ×2 (11:18→20:29)
--- NOTE | 2025-07-24 11:33 | PM.PN ---
Progress Note: Subjective Subjective Interval history: Patient seen and examined at bedside. Today patient's symptoms are better than any other day. She still has bilateral wheezing which is significant however much better than when she first came pain. Her cough is better. She is doing well on 2 L nasal cannula Exam Narrative Exam Narrative: General Appearance: Patient is frail cachectic with moderate malnutrition and disheveled. Continues with cough that is severe and harsh. She is able to speak in full sentence and having cough during my encounter. [facility] Common normals: normocephalic and head/scalp atraumatic Eye Common normals: PERRL, EOMs intact bilaterally, conjunctivae normal and no scleral icterus Respiratory Effort & inspection: Bilateral wheezes have improved but still there, with some rhonchi with decreased air entry. Her tachypnea and work of breathing has improved however still with some increased work of breathing. Does have cough which is dry and sometimes productive. Common normals: regular rate, regular rhythm, S1 normal heart sound and S2 normal heart sound GI Common normals: Normal to inspection, nondistended, normoactive bowel sounds present, soft to palpation and non-tender Extremity Common normals: normal to inspection and full ROM Neuro Common normals: oriented x3, CN's II-XII intact bilaterally, moves all extremities and no focal motor deficits Constitutional Vital Signs, click to edit/add: Last Vital Signs Temp 98.0 F 07/24/25 08:00 Pulse 76 07/24/25 11:19 Resp 18 07/24/25 08:00 BP 149/77 H 07/24/25 08:00 Pulse Ox 96 07/24/25 11:19 O2 Del Method Room Air 07/24/25 11:19 O2 Flow Rate 1 07/23/25 11:37 Progress Note: Objective Labs Labs: Short CBC 07/24/25 Range/Units 05:19 WBC 7.7 (4.0-11.0) 10^3/uL Hgb 12.8 (12.0-16.0) g/dL Hct 41.4 (36.0-48.0) % Plt Count 253 (150-450) 10^3/uL BMP 07/24/25 05:19 Sodium 141 Potassium 3.5 Chloride 105 Carbon Dioxide 27.3 BUN 16.0 Creatinine 0.79 Glucose 207 H Calcium 8.4 L Liver Function 07/24/25 Range/Units 05:19 Total Bilirubin 0.1 L (0.2-1.0) mg/dL AST 10 L (15-37) U/L ALT 21 (14-59) U/L Alkaline Phosphatase 99 (46-116) U/L Albumin 3.1 L (3.4-5.0) g/dL Progress Note: A&P Assessment and Plan (1) Acute hypoxic respiratory failure: (2) Acute exacerbation of chronic obstructive pulmonary disease (COPD): Plan Acute hypoxic respiratory failure (documented 70% saturation on 2 L nasal currently being) in the setting of acute COPD/emphysema exacerbation Frailty and question of compliance Pulmonary cachexia? - Admit patient to medical floor telemetry - I changed the methylprednisolone to 4 mg every 8 hours daily every 12 hours - I added Tessalon to Robitussin for cough - I can switch her doxycycline to azithromycin IV 5 mg IV daily given the change in her cough and the severity of her COPD for anti-inflammatory effect - Continue with DuoNebs 4 times daily, I will add Symbicort to her regimen while in the hospital - I will add Vapotherm to help with her work of breathing -Continuing with Lovenox 40 mg subcutaneously for DVT PPx -IV pantoprazole for GI PPx -Discussed the plan with the pt in details. Answered her questions -Pt may benefit from oxygen test on discharge 07/22/2025 patient continues to have this severe cough, I added Tessalon and made schedule set of as needed as well as promethazine to her cough Robitussin. Will add IV ceftriaxone 1 g every 24 hours to her IV azithromycin that has already been started yesterday. Will continue with DuoNeb as well as Symbicort and IV methylprednisolone. I asked respiratory therapy to help me with placing the patient on vest therapy as well as on hypertonic nebulized saline. Discussed plan with the patient and I told her that this will need some time to improve given her very severe COPD presentation. She understands agrees with this plan management. She is not in any impending respiratory failure and is saturating well on 2 L nasal cannula so we will continue with that for now. Discussed the case with the nursing team as well. 07/23/2025 patient's cough has improved, she states that she is able to come up with more secretions described as green with the vest therapy and hypertonic saline. She continues to be on Robitussin, Tessalon Perles as well as promethazine. Continue to be on IV azithromycin and ceftriaxone given this color of the sputum. Ordered CT chest without contrast given her monocytosis on her CBC. Discussed with her the plan and stated that she may need oxygen on discharge. Still have some time and some work to do before able to clear for discharge. She understands agrees with this plan of management We will continue the same treatment for now. CT chest without contrast did not show any new tumor. Or pneumonia. 07/24/2025 patient improving compared to the days before. Normal discharge tomorrow she is comfortable with this plan.
[2025-07-24] MEDS: BENZONATATE 100 MG CAPSULE PO (11:56)
[2025-07-24] MEDS: AZITHROMYCIN 500 MG in 0.9 % SODIUM CHLORIDE 250 ML 250 MG IV (11:56)
--- NOTE | 2025-07-24 12:00 | CM.NOTE ---
Rounds made with Dr. Solares, discussed plan of care with pt. Pt reports feeling better but not back to her baseline. No discharge today.
[2025-07-24] MEDS: ATORVASTATIN CALCIUM 10 MG TABLET PO (21:28)
[2025-07-24] MEDS: LAMOTRIGINE 25 MG TABLET 50 MG PO (21:28)
--- NOTE | 2025-07-24 23:41 | PC.NURSE ---
patient had a consistent run of PVCs, then converted back to her normal A-paced rhythm . Physician was notified at this time.
[2025-07-25] VITALS (12 sets, daily range): BP systolic 148; BP diastolic 71; PULSE 71–82; TEMP 36.7–36.8; O2SAT 93–97
[2025-07-25] MEDS: METHYLPREDNISOLONE SOD SUCC PF 40 MG/ML VIAL IVP ×2 (00:14→09:15)
[2025-07-25] MEDS: SODIUM CHLORIDE 3% INHALATION 15 ML NEB 6 ML IH ×2 (05:05→11:15)
[2025-07-25] MEDS: ALBUTEROL SULFATE 2.5 MG/3 ML VIAL NEB IH ×2 (05:05→11:15)
[2025-07-25] MEDS: LEVOTHYROXINE SODIUM 125 MCG TABLET PO (05:33)
[2025-07-25 05:52] LABS: Hematocrit 39.3 % (36.0-48.0); Hemoglobin 12.4 g/dL (12.0-16.0); Immature Granulocytes Abs Auto 0.13 10^3/uL (0.00-0.03); Immature Granulocytes Pct Auto 1.7 % (0.0-0.5); Lymphocytes Absolute Auto 0.9 10^3/uL (1.2-3.8); Mean Corpuscular HGB Conc 31.6 g/dL (29.9-35.2); Mean Corpuscular Hemoglobin 27.3 pg (26.7-34.0); Mean Corpuscular Volume 86.6 fL (81.0-99.0); Platelet Count 239 10^3/uL (150-450); Red Blood Count 4.54 10^6/uL (4.20-5.40); White Blood Count 7.7 10^3/uL (4.0-11.0)
[2025-07-25 06:14] LABS: Alanine Aminotransferase 28 U/L (14-59); Albumin Globulin Ratio 0.9; Albumin Level 2.9 g/dL (3.4-5.0); Alkaline Phosphatase 94 U/L (46-116); Anion Gap 12.1; Aspartate Amino Transferase 15 U/L (15-37); Blood Urea Nitrogen 19.0 mg/dL (7.0-18.0); Calcium 8.3 mg/dL (8.5-10.1); Carbon Dioxide 27.9 mmol/L (21.0-32.0); Chloride 106 mmol/L (98-107); Estimated GFR (African America >60 (>=60 mL/min/1.73m^2); Estimated GFR (Non-African Ame >60 (>=60 mL/min/1.73m^2); Globulin 3.2 g/dL; Glucose 140 mg/dL (74-106); Potassium 4.0 mmol/L (3.5-5.1); Sodium 142 mmol/L (136-145); Total Protein 6.1 g/dL (6.4-8.2)
[2025-07-25] MEDS: ENOXAPARIN SODIUM 40 MG/0.4 ML SYRINGE SUBQ (09:15)
[2025-07-25] MEDS: PANTOPRAZOLE SODIUM 40 MG TABLET.DR PO (09:16)
[2025-07-25] MEDS: CETIRIZINE HCL 10 MG TABLET PO (09:16)
[2025-07-25] MEDS: BUPROPION HCL 150 MG XL TABLET 24H 300 MG PO (09:16)
[2025-07-25] MEDS: CHOLECALCIFEROL (VITAMIN D3) 25 MCG/1,000 UNITS TABLET 50 MCG PO (09:16)
[2025-07-25] MEDS: CITALOPRAM HYDROBROMIDE 20 MG TABLET PO (09:16)
--- NOTE | 2025-07-25 10:05 | CM.NOTE ---
Rounded with . Pt will be discharged home today. Follow up appts scheduled.
--- NOTE | 2025-07-25 11:06 | P.DS_ITS ---
DS: Providers Provider Date of admission: 07/21/25 00:13 Primary care physician: Paulo Turner MD Consults: 07/21/25 Consult to [employer]r Routine Reason for consult:: Advanced Directives 07/21/25 12:10 Occupational Therapy Eval and Treat Routine Reason for consultation: weakness Physical Therapy Eval and Treat Routine Reason for consultation: Weakness DS: Diagnosis Discharge Diagnosis (1) Acute hypoxic respiratory failure: (2) Acute exacerbation of chronic obstructive pulmonary disease (COPD): Plan Acute hypoxic respiratory failure (documented 70% saturation on 2 L nasal currently being) in the setting of acute COPD exacerbation Frailty and question of compliance Pulmonary cachexia? DS: Summary Hospital Course Hospital Course: This is 59-year-old female with past medical of COPD/emphysema, GERD, dyslipidemia, hypothyroidism, not on home oxygen, pacemaker in place as per the chest x-ray read, pulmonary hypertension, moderate plating calorie malnutrition, depression, and lysed weakness, with previous frequent hospitalizations at our facility, was accepted by colleague as an admission here. Patient came to the ED with 5 days history of shortness of breath and not able to do anything becau se of that, she also has cough which was productive of green sputum along with diarrhea for few days. Labs in the ED were unremarkable including CBC and CMP. Chest x-ray was negative for acute pathology. Patient received breathing treatment the ED and steroids. Patient to be admitted under hospitalist service for further workup and management. During hospital course, patient was maintained on scheduled breathing treatments, IV steroids and IV antibiotics and pulmonary toileting and other supportive care and symptomatic relief treatments. Patient was not responding to treatment gradually on daily basis. I am seeing her for the first time today during this admission, she seems more comfortable today, saturating well on room air, no wheezes on exam, she is able to ambulate comfortably, hemodynamically appears to be stable, she has been afebrile with no leukocytosis. Plan to transition her to oral antibiotics to complete the course of treatment as well as course of steroid with taper. Discussed with patient at bedside, she reports that she follows with pulmonary team Dr. Izquierdo however she got disconnected and see moved his office from the area. She will try to get in touch with him again and make an appointment. She reports to me that she only takes albuterol about 2 times daily, she tells me that she gets COPD exacerbation about 2-3 times a year, apparently her COPD has not been controlled, also reports that she has dust exposure at the house, advised to take care of this problem advised to follow-up with her PCP however I offered her to start her on Breo Ellipta daily and she seems in agreement with that, I did send a prescription for her for oral antibiotics and steroids as well as Breo Ellipta. Discussed with patient and family at bedside, all question answered, they are in agreement and comfortable with discharge plan at this time. Patient has multiple complex medical issues as listed above and others that are not listed. All appear to be stable at this time. Patient is feeling significantly better and feeling comfortable with this plan of discharge. I do not have any clear or strong clinical justification to extend inpatient hospitalization. Patient however will require close and the frequent monitoring as well as additional work-up, investigation and therapeutic intervention that could take place from this point on post discharge. That is to prevent relapse, decompensation, rehospitalization and other medical implications. Outpatient follow up as directed for continuity of care. Verbal and written discharge instructions will be provided to the patient. Time Spent with Patient Time attestation: Total time spent providing and/or coordinating discharge services: Time spent: greater than 30 minutes Exam Narrative Exam Narrative: Const General: cooperative, thin appearing HEENT Normal oropharyngeal mucosa without any ulcers or exudates Eyes: Conjunctiva normal Pulmonary Auscultation: diminished breath sound, no crackles, no wheezes Cardiovascular Rate: normal rate Rhythm: regular rhythm Heart Sounds: S1 normal, S2 normal and no murmurs GI Inspection: non-distended Palpation: soft, not firm and nontender. No rigidity or rebound. Deferred Neuro General: alert, awake and oriented x3. No obvious new focal deficit Musculoskeletal: normal range of motion Extrem General: no cyanosis, no pedal edema Psych Appearance: appropriate affect. Grossly normal Constitutional Vital Signs, click to edit/add: Last Vital Signs Temp 98.3 F 07/25/25 08:00 Pulse 81 07/25/25 10:00 Resp 16 07/25/25 05:05 BP 148/71 H 07/25/25 08:00 Pulse Ox 94 L 07/25/25 08:00 O2 Del Method Room Air 07/25/25 08:00 O2 Flow Rate 1 07/23/25 11:37 DS: Data Data Completed and Pending Labs on day of discharge: Labs from last 24 hours 07/25/25 05:40 WBC 7.7 RBC 4.54 Hgb 12.4 Hct 39.3 MCV 86.6 MCH 27.3 MCHC 31.6 RDW 14.1 Plt Count 239 MPV 9.8 Neut % (Auto) 83.6 H Lymph % (Auto) 11.3 L Coke % (Auto) 3.4 Eos % (Auto) 0.0 L Baso % (Auto) 0.0 L Neut # (Auto) 6.5 Lymph # (Auto) 0.9 L Coke # (Auto) 0.3 Eos # (Auto) 0.0 Baso # (Auto) 0.0 Abs Immat Gran (auto) 0.13 H Imm/Tot Granulo (auto) 1.7 H Sodium 142 Potassium 4.0 Chloride 106 Carbon Dioxide 27.9 Anion Gap 12.1 BUN 19.0 H Creatinine 0.68 Est GFR ( Amer) >60 Est GFR (Non-Af Amer) >60 BUN/Creatinine Ratio 27.9 Glucose 140 H Calcium 8.3 L Total Bilirubin 0.1 L AST 15 ALT 28 Alkaline Phosphatase 94 Total Protein 6.1 L Albumin 2.9 L Globulin 3.2 Albumin/Globulin Ratio 0.9 Discharge Plan Discharge Disposition: Home, Self-Care Condition: Good Discharge Medications: New azithromycin 500 mg tablet 500 mg PO DAILY 3 Days Qty: 3 0RF prednisone 10 mg tablet 10 mg PO .directed Qty: 39 0RF Rx Instructions: Take 60 mg (6 tabs) for 3 days then Take 40 mg ( 4 tabs) for 3 days then Take 20 mg ( 2 tab) for 3 days then Take 10 mg ( 1 tab) for 3 days to finish fluticasone furoate-vilanterol [Breo Ellipta] 200-25 mcg/dose blister with device 1 inh inhalation DAILY Qty: 60 1RF Continued alendronate 70 mg tablet 70 mg PO QWEEK Rx Instructions: TAKES ON MONDAY albuterol sulfate 2.5 mg /3 mL (0.083 %) solution for nebulization 2.5 mg inhalation QID meclizine 25 mg tablet 25 mg PO QID PRN (Reason: dizziness) Qty: 30 0RF albuterol sulfate [Ventolin HFA] 90 mcg/actuation HFA aerosol inhaler 2 inh inhalation Q6H PRN (Reason: shortness of breath or wheezing) Qty: 8.5 11RF bupropion HCl 300 mg tablet extended release 24 hr 300 mg PO DAILY cholecalciferol (vitamin D3) 50 mcg (2,000 unit) capsule 50 mcg PO DAILY citalopram 20 mg tablet 20 mg PO DAILY lamotrigine 25 mg tablet 50 mg PO BEDTIME lansoprazole 30 mg capsule,delayed release(DR/EC) 30 mg PO DAILY levothyroxine 125 mcg tablet 125 mcg PO DAILY simvastatin 20 mg tablet 20 mg PO QPM loratadine [Allergy Relief (loratadine)] 10 mg tablet 10 mg PO DAILY docusate sodium [Col-Rite] 100 mg capsule 100 mg PO DAILY PRN (Reason: constipation) benzonatate 100 mg capsule 100 mg PO Q6H PRN (Reason: cough) Qty: 14 0RF Discontinued budesonide-formoterol [Symbicort] 80-4.5 mcg/actuation HFA aerosol inhaler 2 inh INHALATION Q12H Activity: resume usual activities as tolerated Diet: advance to your usual diet Print Language: Yi Patient Instructions: Prednisone (By mouth), Azithromycin (By mouth), Fluticasone/Vilanterol (By breathing) (Breo Ellipta), Upper Respiratory Infection (DC), COPD (Chronic Obstructive Pulmonary Disease) (DC) Forms: Portal Instructions Follow Up Appointments: Follow up Dr Turner 07/30/2025@ 10:00 #[phone] Dr Felecia Rodriguez[address], [address], [place] Sep 02 2025 @ 10:00am phone: [phone] *patient will call the office to see about an earlier appt. once transportation can be obtained
[2025-07-25] MEDS: AZITHROMYCIN 500 MG in 0.9 % SODIUM CHLORIDE 250 ML 250 MG IV (11:09)
[2025-07-25] MEDS: BUDESONIDE 0.5 MG/2 ML AMPULE NEB IH (11:15)
[2025-07-25] MEDS: BENZONATATE 100 MG CAPSULE PO (11:19)
--- NOTE | 2025-07-29 14:13 | CM.NOTE ---
I attempted to call the pt for a discharge follow up call but no one answered
--- NOTE | 2025-07-29 15:18 | CM.NOTE ---
We received a fax from [facility] stating the Breo Ellipta requires a prior authorization. This was faxed to Dr Turner's office as patient has an appt tomorrow and Dr Turner is her PCP.
--- NOTE | 2025-07-30 13:08 | CM.DCFOLLOWU ---
Person spoke with: patient How are you feeling?well How is your pain? none Did you understand your discharge instructions?yes Do you have any questions about your discharge instructions?no Were you given any prescriptions at discharge?yes Were you able to get your prescriptions filled?yes Do you understand how to take your medications as ordered?yes Do you have any questions about your follow up appointment and do you plan to keep your follow up appointment? no questions, saw Dr. Turner today and working on transport to get in earlier to see Dr. Izquierdo Is there anything else that you would like to discuss?no Questions/Comments/Concerns/Other:none
== END 2025-07-25 14:10 | disposition home or self-care (01) | DRG 133 ==
LOC: ER 07-21 00:16 → MS 07-22 14:18
PROVIDERS: Student in an Organized Health Care Education/Training Program; Admitting Provider Internal Medicine; Emergency Provider Internal Medicine; PCP Family Medicine; Visit Provider Internal Medicine
DX: J96.01 Acute respiratory failure with hypoxia (principal); J43.9 Emphysema, unspecified; K21.9 Gastro-esophageal reflux disease without esophagitis; E78.00 Pure hypercholesterolemia, unspecified; E03.9 Hypothyroidism, unspecified; Z95.0 Presence of cardiac pacemaker; I27.20 Pulmonary hypertension, unspecified; F32.A Depression, unspecified; Z90.49 Acquired absence of other specified parts of digestive tract; Z86.16 Personal history of COVID-19; Z79.890 Hormone replacement therapy; Z79.899 Other long term (current) drug therapy; R64 Cachexia; E44.0 Moderate protein-calorie malnutrition; R05.9 Cough, unspecified; R54 Age-related physical debility; Z68.20 Body mass index [BMI] 20.0-20.9, adult
CPT/HCPCS: 36415; 71045; 71250; 80048; 80053; 83735; 83880; 84484; 85025; 87804; 87811; 93005; 94640; 94667; 94668; 94761; 96374; 97161; 97165; 99285; J0456; J0696; J1650; J2919; Q0162